=== PATIENT | female | born 1955 | race Caucasian/White ===

== ENCOUNTER → 2019-01-25 14:35 | Outpatient (CLI) | payer BC, MEDICARE, SELFPAY ==
--- NOTE | 2019-01-25 14:42 | BI_ITS ---
MAMMOGRAPHY - BILATERAL SCREENING REASON FOR EXAM: Female, 64 years old. Routine annual screening examination. PERTINENT HISTORY: Non-contributory. TECHNIQUE: Digital bilateral breast jagruti (3D mammographic acquisition) in the CC and MLO projections. 2-D mediolateral oblique (MLO) and craniocaudad (CC) views of both breasts were obtained. CAD: Full Field Digital Mammography with Computer Added Detection was performed. COMPARISON: Comparison is made with prior examination dated July 20, 2017 and July 10, 2016. FINDINGS: Breast Composition: There are scattered areas of fibroglandular density. There are no dominant masses or suspicious calcifications. No other significant abnormalities are identified. There has been no significant change since the prior study. BI/SCREENING MAMM (CAD), BILAT IMPRESSION: Stable bilateral screening mammogram. Yearly follow-up mammogram recommended. (A) ASSESSMENT CATEGORY: BIRADS Category 1: Negative. A letter regarding these results will be sent to the patient by the facility within 30 days. Approximately 10% of breast cancers are not detected by mammography. A normal mammogram should not delay biopsy of a clinically suspicious abnormality. [id number] Electronically Signed: Yousif Elena, at 15:42 EST , Service support ,
== END ==
PROVIDERS: Family Provider Family Medicine; PCP Family Medicine; Visit Provider Family Medicine
DX: Z12.31 Encounter for screening mammogram for malignant neoplasm of breast (principal)
CPT/HCPCS: 77063; 77067

== ENCOUNTER 2020-02-07 13:30 | Outpatient (RCR) | payer BC, MEDICARE, SELFPAY ==
--- NOTE | 2020-02-07 16:44 | HP.PTEVAL ---
Patient's Visit Information BETTY CARO is a 65 year old F referred to Physical Therapy by Joo Everett DPM with a diagnosis of CONTACTURE RIGHT ANKLE,DEFORMITY,CALCANEAL SPUR ,PAIN RIGHT ANKLE JOINT. Date of Evaluation: 02/07/20 Physical Therapist: Cecilio Banuelos, PT, Cert MDT, OCS - Visit Plan Frequency: 2x /Week Duration: 4 Weeks Plan: PT INTERVENTION FLEXABLITY G-S,ANKLE STRENGTHENING ,PROPRIOCEPTION - Subjective Subjective: This 65 y/o female presenst to physical therapy with right achilles tendon. 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 Patient seen sensor specialist recommendeed PT and night spint. Patient c/o tightness in right ankle impairs ADL'S and housework tasks. Denies parathesia/tingling. Patient symptoms affects QOL and function . Patient reports calf is atrophied .Patient sleeping okay at night. Patient goal decrease tightness and increases strength. SOCIAL: . VOCATION: retired - Pain Right Foot Pain Intensity (Out of 10): 7 Pain Intensity Range: 10 - Objective POSTURE: pes cavus. OBSERAVTION: atrophied G-S. NEURO: denies parathesia/tingling,reflexes intact. GAIT: ambulates on forefoot with decrease heelstike toe off. AROM: dorsiflexion -20 degrees fom 0,planterflexion 80 degrees,inversion 40 ,eversion 10 degrees. MMT: ankle dosiflexion 4/5,eversion/inversion 4/5,planterflexion 4-/5. PRORIOCEPTION: RLE poor > to LLE. FLEXABLITY: CALF MOD - Goals Goal 1:: Independant with HEP Goal Time Frame: 4-6 Weeks Goal 2:: Patient to improve dorsiflexion by 5 degrees or > to improve gait Goal Time Frame: 4-6 Weeks Goal 3:: Patient increase gait with improved heelstrike toe off during gait cycle . Goal Time Frame: 4-6 Weeks Goal 4:: Patient to increase strength of G-S to 4/5 to improve gait. Goal Time Frame: 4-6 Weeks Goal 5:: Patient to improve LFES score by 5-8 ponts or > to improve QOL. Goal Time Frame: 4-6 Weeks - Rehabilitation Potential Physical Therapy Diagnosis: Patient has severe restriction of ankle planterflexion contraction tightness with decrease affecting dorsiflexion ROM pain impairs gait and function thus benifit from skilled PT Rehabilitation Potential: Good - Anticipated Interventions Patient/Client Instruction: Educate patient on: Condition, Plan of Care For the Purpose of:: To decrease pain, To increase ROM, To improve muscle performance and motor function, To improve ability to perform ADL's, To increase tolerance to activity/condition/position, To improve ability of physical actions for home/community/work/leisure, To improve health of tissue, To decrease soft tissue restriction, To increase flexibility/ROM, To improve ability to perform tasks related to life management Therapeutic Exercise to Include: Strength training, Balance training, Flexibilty training, Passive ROM, Active ROM Comment: ANKLE For the Purpose of:: To decrease pain, To increase ROM, To improve muscle performance and motor function, To improve ability to perform ADL's, To increase tolerance to activity/condition/position, To improve ability of physical actions for home/community/work/leisure, To improve health of tissue, To decrease soft tissue restriction, To increase flexibility/ROM, To improve ability to perform tasks related to life management TENS: Yes IF ES: Yes Thermo therapy (hot pack): Yes For the Purpose of:: To decrease pain, To decrease swelling/inflammation, To improve health of tissue, To decrease soft tissue restriction Thank you for the opportunity to evaluate your patient. For Medicare and Medicare HMO plans, please review the plan of care and approve it. It will need to be FAXED BACK to us at [phone] for Medicare purposes. For Medicare only, by signing this I certify the plan of care. Please let me know if there are questions or concerns regarding this plan of care. Physician Signature: Date:
--- NOTE | 2020-02-26 13:49 | HP.PT.NRP ---
BETTY CARO was seen in my office for initial evaluation on 02/07/20. The following Plan of Care was established for this patient: Initial Frequency: 2x /Week Initial Duration: 4 Weeks Patient/Client Instruction: Educate patient on: Condition, Plan of Care For the Purpose of:: To decrease pain, To increase ROM, To improve muscle performance and motor function, To improve ability to perform ADL's, To increase tolerance to activity/condition/position, To improve ability of physical actions for home/community/work/leisure, To improve health of tissue, To decrease soft tissue restriction, To increase flexibility/ROM, To improve ability to perform tasks related to life management Therapeutic Exercise to Include: Strength training, Balance training, Flexibilty training, Passive ROM, Active ROM For the Purpose of:: To decrease pain, To increase ROM, To improve muscle performance and motor function, To improve ability to perform ADL's, To increase tolerance to activity/condition/position, To improve ability of physical actions for home/community/work/leisure, To improve health of tissue, To decrease soft tissue restriction, To increase flexibility/ROM, To improve ability to perform tasks related to life management TENS: Yes IF ES: Yes Thermo therapy (hot pack): Yes For the Purpose of:: To decrease pain, To decrease swelling/inflammation, To improve health of tissue, To decrease soft tissue restriction This patient was last seen in our office . Pertinent comments regarding their Physical therapy will appear below: Patient seen for Intila Evaluation then d.c to HEP. At this point I will be discontinuing this patient from physical therapy. I would be happy to see this patient again in the future if found appropriate by the physician. Thank you! Cecilio Banuelos, PT, Cert MDT, OCS
== END 2020-02-07 19:00 | disposition home or self-care (01) ==
LOC: PT 13:30
PROVIDERS: Referring Provider Podiatrist; Visit Provider Podiatrist
DX: M24.571 Contracture, right ankle (principal); M21.6X9 Other acquired deformities of unspecified foot; M25.571 Pain in right ankle and joints of right foot; G80.9 Cerebral palsy, unspecified; M67.01 Short Achilles tendon (acquired), right ankle; M76.61 Achilles tendinitis, right leg; M77.31 Calcaneal spur, right foot
CPT/HCPCS: 97110; 97162

== ENCOUNTER 2023-09-28 20:00 | Inpatient (IN) | payer MEDICARE, SELFPAY ==
[2023-09-28] VITALS (12 sets, daily range): BP systolic 143–178; BP diastolic 55–86; PULSE 63–79; RESP 14–22; TEMP 36.7–36.8; O2SAT 94–100; BMI 21.4; BMI 20.8
--- NOTE | 2023-09-28 20:12 | CT_ITS ---
INDICATION: Neuro deficit, acute, stroke suspected EXAMINATION: CT BRAIN - CT Head Stroke Protocol W/O Contrast Injection TECHNIQUE: Multiple axial images were obtained of the head without intravenous contrast. A radiation dose optimization technique was used for this scan. IV Contrast dosage and agent: None. Radiation Dose (provided by facility) CTDIvol (44.99 ) mGy, DLP ( 829.85) mGy-cm COMPARISON: MRI examination of brain dated the FINDINGS: HEMISPHERES: 1. The cerebral parenchyma, ventricular system and gyral pattern are unchanged. Persistent encephalomalacic changes involving the LEFT hemisphere, particularly involving the LEFT parietal and temporal lobes corresponding to an area of remote ischemia with negligible change. 2. Remaining hemispheric parenchyma has normal tello-white differentiation. Mild involutional changes are present. 3. Minimal chronic microvascular deep white matter changes.. 4. No intraparenchymal mass, hemorrhage, or acute territorial infarct. CEREBELLUM - BRAINSTEM: The cerebellum, brainstem, basilar and suprasellar cisterns have normal appearance. No Chiari malformation. PITUITARY: Infundibulum and pituitary have normal configuration. Midline structures appear normal. VESSELS: 1. Extensive calcific lesions throughout cavernous carotid vessels bilaterally. 2. No hyperdense vascular signs noted.. ORBITS AND PARANASAL SINUSES: 1. Normal appearance of the bony orbits. Normal appearance of the globes and retrobulbar soft tissues.. 2. Paranasal sinuses are clear. BONY ELEMENTS: Bony elements of the cranial vault, facial skeleton and skull base have normal appearance. SCALP AND SOFT TISSUES: Normal appearance of the soft tissues of the scalp and the visualized face OTHER: None CT/STROKE Brain/Head without Cont IMPRESSION: 1. Stable exam, extensive area of encephalomalacic area involving the LEFT hemisphere involving LEFT parietal and temporal lobes consistent with remote LEFT MCA infarct. 2. 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 3. No intracranial mass, hemorrhage or acute territorial infarct. 4. No radiographically significant sinus disease. N.B. : The above Results were Read Back by Jasper Ochoa MD to Uday Orosco DO, and understanding confirmed on 09/28/2023 20:30:45 (ET). Electronically Signed: Jasper Ochoa MD at 20:31 EST ,
--- NOTE | 2023-09-28 20:12 | CT_ITS ---
INDICATION: Neuro deficit, acute, stroke suspected EXAMINATION: CTA HEAD - CTA Head and Neck Stroke W/ Contrast (and W/O if performed) TECHNIQUE: [place] [facility] [place]/head CT angiogram protocol was performed following IV contrast. 3D reconstructions were reviewed. A radiation dose optimization technique was used for this scan. IV Contrast dosage and agent: 100 mL Isovue-370 Radiation Dose (provided by facility) CTDIvol (23.63 ) mGy, DLP ( 690.20) mGy-cm ADVANCED IMAGING: This study was analyzed with ARTIFICIAL INTELLIGENCE algorithms including DEEP MACHINE LEARNING to assist in the evaluation of ACUTE CEREBRAL INFARCTS and/or detection of LARGE VESSEL OCCLUSIONS. COMPARISON: : No relevant prior comparison study available FINDINGS: CTA [place] [facility] [place]: PETROUS AND CAVERNOUS CAROTID ARTERIES: Diffuse vascular calcification throughout the cavernous carotid vessels without stenosis occlusion or filling defects. SUPRACLINOID CAROTID ARTERIES: Diffuse vascular calcifications, no evidence of stenosis occlusion or filling defect. ANTERIOR CEREBRAL AND A- COMM: Normal appearance the proximal and distal segments of the anterior cerebral circulation bilaterally. MIDDLE CEREBRAL ARTERIES: Normal appearance the proximal and distal segments of the middle cerebral circulation bilaterally. Normal appearance of the M4 cortical distribution bilaterally. INTRACRANIAL VERTEBRAL ARTERIES AND BASILAR ARTERY: Small caliber LEFT vertebral artery, basilar artery has normal caliber to level of bifurcation. Moderate calcifications involving the V4 segment of the RIGHT vertebral artery. There is a normal appearing LEFT posterior communicating artery. RIGHT posterior communicating artery is not well visualized. POSTERIOR CEREBRAL ARTERIES: Normal appearance proximal distal segments of posterior cerebral circulation bilaterally. DURAL SINUSES: Normal, no filling defects noted CT HEAD: Diffuse extensive malacic changes in the LEFT parietal and temporal region. No areas of abnormal contrast enhancement. No areas of abnormal enhancement. CTA Neck: TECHNIQUE: CTA examination of the neck obtained with standard protocol including axial postcontrast imaging with additional planar and three-dimensional reconstructions. Aortic arch: [Normal appearance of the aortic arch and origin the great vessels.] Right carotid system: Moderate calcifications at the RIGHT carotid bulb with out hemodynamically significant stenosis however mild (less than 50%) narrowing is noted. Remaining RIGHT cervical ICA has normal appearance to level of the skull base. Left carotid system: Moderate calcification at the LEFT carotid bulb, mild (less than 50%) narrowing noted. No evidence of filling defects or high-grade stenosis. Vertebral arteries: Small caliber LEFT vertebral artery is noted, no evidence of stenosis or occlusion. Airway and soft tissues of the neck: There is normal appearance of the musculofascial planes of suprahyoid and infrahyoid neck. Normal appearance of the visualized airway. Normal appearance the visualized thyroid without masses or nodules noted. Cervical spine: Normal appearance of bony elements of the cervical spine. No focal stenosis or occlusion involving the cervical spinal canal. CT/STROKE CTA Head AND Neck W/Con IMPRESSION: 1. Diffuse vascular calcifications throughout the cavernous carotid and supra clinoid carotid vessels bilaterally without stenosis or occlusion. Moderate calcifications involving the V4 segment of the RIGHT vertebral artery. 2. No evidence focal stenosis occlusion filling defects or LVO involving the intracranial circulation. 3. Moderate calcifications involving the carotid bulbs bilaterally consistent with mild (less than 50%) narrowing. No hemodynamically significant stenosis in the cervical carotid or vertebral circulation bilaterally. Electronically Signed: Jasper Ochoa MD at 20:50 EST ,
--- NOTE | 2023-09-28 20:12 | EKG12_ITS ---
Test Reason : STROKE Blood Pressure : / mmHG Vent. Rate : 069 BPM Atrial Rate : 070 BPM P-R Int : 000 ms QRS Dur : 116 ms QT Int : 466 ms P-R-T Axes : 018 100 097 degrees QTc Int : 499 ms Ventricular-paced rhythm Biventricular pacemaker detected Abnormal ECG Confirmed by EDGARDO MORENO, CLIFF ([id number]), editorial clerk CRESCENCIO BERRY ([id number]) on 10/04/2023 8:34:40 AM Referred By: RAJ Confirmed By:SALEEM REYNOSO MD
--- NOTE | 2023-09-28 20:15 | RAD_ITS ---
INDICATION: Neuro deficit, acute, stroke suspected EXAMINATION/TECHNIQUE: X-RAY - XR Chest 1 View COMPARISON: 12/08/2014 FINDINGS: LIFE-SUPPORT AND LINES: 1. Transvenous pacer/AICD system has been placed in the interval projecting in normal position. 2. No pneumothorax. HEART AND VESSELS: The cardiac silhouette, pulmonary vasculature have normal appearance. No evidence of congestive failure. LUNGS AND PLEURAL SPACES: Lungs are clear. No focal infiltrate, consolidation or effusions. No evidence of pneumothorax. Minimal atelectasis versus chronic scarring in the RIGHT infrahilar region. MEDIASTINUM AND HILAR REGIONS: No masses adenopathy noted. No areas of calcification. Visualized upper airway is normal in position. BONY ELEMENTS: No acute bony changes noted. RAD/Chest 1 View IMPRESSION: 1. Interval placement of transvenous pacer/AICD system projecting in normal position. 2. No pneumothorax. 3. No evidence of acute cardiopulmonary process. 4. Chronic interstitial changes and pleural thickening in the RIGHT infrahilar region. No acute infiltrate. Electronically Signed: Jasper Ochoa MD at 21:05 EST ,
[2023-09-28 20:17] LABS: Absolute Lymphocyte Count 3.61 X10^3/uL (0.83-4.51); Basophil# 0.04 X10^3/uL; Basophil% 0.6 % (0-1); Eosinophil# 0.07 X10^3/uL; Hematocrit 39.6 % (37-47); Hemoglobin 12.5 g/dL (12.0-15.0); Lymphocyte # 3.61 X10^3/ul (0.83-4.51); Lymphocyte % 49.7 % (19-41); Mean Corp Hgb Conc 31.6 g/dL (32-36); Mean Corpuscular Hgb 30.2 pg (27.0-32.0); Mean Corpuscular Volume 95.7 fL (81-99); Mean Platelet Vol. 11.1 fl (6.2-12.0); Monocyte# 0.55 X10^3/uL; Monocyte% 7.6 % (0-10); NRBC Flagged by Analyzer 0 % (0-5); Neutrophil # 2.98 X10^3/uL (2.7-7.7); Neutrophil % 40.8 % (47-70); Platelet Count 157 K/mm3 (150-450); RBC Distribution Width CV 13.3 % (11.6-14.6); RBC Distribution Width SD 47.4 fl (35.1-43.9); Red Blood Count 4.14 M/mm3 (4.2-5.4); White Blood Count 7.3 K/mm3 (4.4-11.0)
[2023-09-28 20:26] LABS: Prothrombin Time (Protime)PT. 12.7 SECONDS (11.7-14.9)
[2023-09-28 20:27] LABS: Partial Thromboplast Time 24.8 Seconds (24.1-36.2)
[2023-09-28 20:39] LABS: Anion Gap 6 (5-15); BUN 27 mg/dL (7-18); BUN/Creat Ratio 24.5 RATIO (10-20); Calcium,Total 9.7 mg/dL (8.5-10.1); Chloride 106 mmol/L (98-107); EST Glomerular Filtration Rate 52 mL/min (>60); Est Glom Filt Rate - Afr Amer 63 mL/min (>60); Estimated Creatinine Clearance 46.28 ml/min; Glucose 159 mg/dL (74-106); Potassium 3.9 mmol/L (3.5-5.1); Sodium Level 140 mmol/L (136-145); Troponin-I HS 7 pg/mL (3.0-54.0)
[2023-09-28] MEDS: 0.9% Normal Saline (1000mL) 1,000 ML 999 ML IV (20:43)
--- NOTE | 2023-09-28 20:50 | ED.VIS.STROK ---
HPI History of Present Illness Chief Complaint: Neuro S/Sx Narrative Narrative: 68-year-old female presenting with strokelike symptoms with her . Onset was 4 PM. Patient's states she is just not acting right. She appears to be confused. She complains of dizziness and blurry vision. She cannot describe this. Patient's states that she is having fragmented sentences. She is not making sense. Initially he tried to get her to come to the emergency room but she was arguing with him. He finally put her in the car and brought her here. She was unable to walk on arrival and was wheelchair then. History of stroke a year ago with residual deficit of spastic right lower extremity. Patient is on Plavix. [facility] Medical History Cardiac resynchronization therapy defibrillator ([employer]-D) in place Diabetes mellitus Hyperlipidemia Hypertension Myocarditis PFO (patent foramen ovale) Home Medications amlodipine 5 mg-olmesartan 20 mg tablet (Joaquín) 0.5 udtab PO QODAY 11/18/14 [History Last Taken 05/16/16 22:00] citalopram 20 mg tablet 20 mg PO QHS 11/18/14 [History Last Taken 05/17/16 22:00] clonazepam 1 mg tablet 1 mg PO QHS anxiety 11/18/14 [History Last Taken 05/15/16 22:00] ergocalciferol (vitamin D2) 1,250 mcg (50,000 unit) capsule (Vitamin D2) 2,000 iu PO QHS 11/18/14 [History Last Taken 05/17/16 22:00] metformin 500 mg tablet 500 mg PO QHS 11/18/14 [History Last Taken 05/17/16 22:00] multivitamin with folic acid 400 mcg tablet (Thera) 1 tab PO QHS 11/18/14 [History Last Taken 05/17/16 22:00] rosuvastatin 5 mg tablet (Crestor) 5 mg PO QHS 11/18/14 [History Last Taken 05/17/16 22:00] trazodone 50 mg tablet 50 mg PO DAILY PRN Anxiety 11/18/14 [History Last Taken Unknown] pantoprazole 40 mg tablet,delayed release 40 mg PO BID ##120 12/12/14 [Rx Last Taken Unknown] clopidogrel 75 mg tablet 1 tab PO QHS 05/18/16 [History Last Taken 05/17/16 22:00] aspirin 81 mg tablet,delayed release 81 mg PO MOWEFR 09/28/23 [History Last Taken Unknown] baclofen 5 mg tablet 5 mg PO Q12H SPASTICITY IN RIGHT LEG 09/28/23 [History Last Taken Unknown] empagliflozin 10 mg tablet (Jardiance) 10 mg PO DAILY 09/28/23 [History Last Taken Unknown] metoprolol succinate 25 mg tablet,extended release 24 hr 12.5 mg PO DAILY 09/28/23 [History Last Taken Unknown] oxybutynin chloride 5 mg tablet,extended release 24 hr 5 mg PO DAILY 09/28/23 [History Last Taken Unknown] rosuvastatin 20 mg tablet 20 mg PO DAILY 09/28/23 [History Last Taken Unknown] sacubitril-valsartan 0.5 tab PO BID HTN 09/28/23 [History Last Taken Unknown] spironolactone 0.5 tab PO MOWEFR EDEMA 09/28/23 [History Last Taken Unknown] vitamin Z97-[id number] acid PO 09/28/23 [History Last Taken Unknown] Allergy/AdvReac Type Severity Reaction Status Date / Time No Known Allergies Allergy Verified 09/28/23 20:19 Social History Smoking Status: Former smoker ROS ROS ED Review of Systems ROS Unobtainable: due to mental condition and due to mental status EXAM Physical Exam Const Vital Signs: 09/28/23 20:00 09/28/23 20:04 09/28/23 20:00 Temperature 98.1 F Temperature Source Oral Pulse Rate 75 77 78 Respiratory Rate 16 16 21 H Blood Pressure 152/86 H 158/76 H 178/65 H Blood Pressure Mean 108 103 102 Pulse Ox 98 99 94 Oxygen Delivery Method Room Air Room Air Room Air 09/28/23 20:12 09/28/23 20:12 09/28/23 20:27 Temperature Temperature Source Pulse Rate 79 78 Respiratory Rate 14 20 H Blood Pressure 165/74 H 167/63 H Blood Pressure Mean 104 97 Pulse Ox 99 99 Oxygen Delivery Method Room Air Room Air Room Air 09/28/23 20:42 09/28/23 20:57 09/28/23 21:30 Temperature Temperature Source Pulse Rate 71 70 78 Respiratory Rate 22 H 19 H 18 Blood Pressure 143/74 H 170/55 H 144/77 H Blood Pressure Mean 97 93 99 Pulse Ox 99 99 100 Oxygen Delivery Method Room Air Room Air Room Air Positive well nourished Constitutional Narrative: Confused HEENT Reports moist mucous membranes Eyes General Eye ED: Negative for pale conjunctiva or scleral icterus Chest Wall inspection of chest normal Resp normal respiratory effort and clear to auscultation bilaterally Auscultation: Negative for rales, rhonchi or wheezes Cardio Rate: regular rate Rhythm: regular rhythm GI normal to inspection, nondistended, normoactive bowel sounds Extremity normal to inspection General Extremety ED: Negative for deformity or edema General Extremity: Negative for deformity or edema Neuro oriented x3 and CN's II-XII intact bilaterally Sensorium / Orientation: alert Motor Exam: strength 5/5 throughout Psych Psych Narrative: Confused Skin no wounds NIHSS NIHSS Initial: 1a Level of Consciousness: 0 1b LOC Questions (Score 2 if aphasic/stupor): 0 1c LOC Commands (Only score 1st attempt): 0 2 Best Gaze (If aphasic, use reflexive mvmts.): 0 3 Visual: 0 4 Facial Palsy: 0 5 Motor Arm Right (UN = amputation/fusion): 0 5 Motor Arm Left: 0 6 Motor Leg Right: 0 6 Motor Leg Left: 0 7 Limb ataxia (Only + if out of proportion): 0 8 Sensory (Aphasia/stupor=0 or 1, coma=2): 1 9 Best Language: 1 10 Dysarthria (mute, coma=2, intubated=UN): 0 11 Extinction and Inattention (only scored if +): 0 Total Score: 2 MDM MDM MDM Narrative Medical decision making narrative: Patient seen and evaluated on arrival. An extra scale score of 2. History of stroke. She is a little bit of expressive aphasia and some decrease sensation of the right leg otherwise her exam is normal. She does seem a bit confused and is a poor informant but she is alert and awake. She states that she has blurry vision but this is improved if she closes her left eye. She does not describe diplopia. When she closes her right eye her vision is just as bad as when she has both eyes open . she keeps stating she has monocular vision. Stroke team was called patient taken to CT and CT brain and CTA were obtained although she is outside the window for tPA is possibility of large vessel occlusion. CBC was obtained and shows normal white blood cell count, hemoglobin, platelets. PT/INR normal. High-sensitivity troponin is 7. Creatinine slightly elevated 1.10. Radiology called and told me that the CT brain was negative. Still waiting for the CTA. CTA returned negative. Review the medical record shows the patient has a PFO which makes her high risk for stroke although we do not see any evidence of 1. She will need to be admitted for MRI. This was the recommendation by the neurologist. Patient given aspirin in ED. Discussed with hospitalist for admission. Impression: 1. CVA Lab Data Attestation: I reviewed the patient's lab results. Labs: Laboratory Results - last 24 hr 09/28/23 09/28/23 20:10 21:00 WBC 7.3 RBC 4.14 L Hgb 12.5 Hct 39.6 MCV 95.7 MCH 30.2 MCHC 31.6 L RDW Std Deviation 47.4 H RDW Coeff of Edita 13.3 Plt Count 157 MPV 11.1 Immature Gran % (Auto) 0.300 Neut % (Auto) 40.8 L Lymph % (Auto) 49.7 H [place] % (Auto) 7.6 Eos % (Auto) 1.0 Baso % (Auto) 0.6 Absolute Neuts (auto) 3.0 Absolute Lymphs (auto) 3.61 Nucleated RBC % 0 PT 12.7 INR 1.0 APTT 24.8 Sodium 140 Potassium 3.9 Chloride 106 Carbon Dioxide 28.0 Anion Gap 6 BUN 27 H Creatinine 1.10 H Estim Creat Clear Calc 46.28 Est GFR (MDRD) Af Amer 63 Est GFR (MDRD) Non-Af 52 L BUN/Creatinine Ratio 24.5 H Glucose 159 H Calcium 9.7 Troponin I High Sens 7 Urine Color Yellow Urine Clarity Clear Urine pH 8.0 Ur Specific [place] 1.010 Urine Protein Negative Urine Glucose (UA) 1000 H Urine Ketones Negative Urine Occult Blood Negative Urine Nitrite Negative Urine Bilirubin Negative Urine Urobilinogen Normal Ur Leukocyte Esterase 25 H Urine RBC 0 SEEN Urine WBC 0 SEEN Ur Squamous Epith Cells 0 SEEN Urine Bacteria 0 SEEN Urine Mucus 0 SEEN Radiography Diagnostic Testing: Clinical Impression(s) from Imaging Studies Brain CT 09/28/23 20:12 IMPRESSION: 1. Stable exam, extensive area of encephalomalacic area involving the LEFT hemisphere involving LEFT parietal and temporal lobes consistent with remote LEFT MCA infarct. 2. 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 3. No intracranial mass, hemorrhage or acute territorial infarct. 4. No radiographically significant sinus disease. N.B. : The above Results were Read Back by Jasper Ochoa MD to Uday Orosco DO, and understanding confirmed on 09/28/2023 20:30:45 (ET). Electronically Signed: Jasper Ochoa MD at 20:31 EST , ADDENDUM: 09/28/232037 IMPRESSION: 1. Stable exam, extensive area of encephalomalacic area involving the LEFT hemisphere involving LEFT parietal and temporal lobes consistent with remote LEFT MCA infarct. 2. 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 3. No intracranial mass, hemorrhage or acute territorial infarct. 4. No radiographically significant sinus disease. N.B. : The above Results were Read Back by Jasper Ochoa MD to Uday Orosco DO, and understanding confirmed on 09/28/2023 20:30:45 (ET). Electronically Signed: Jasper Ochoa MD at 20:31 EST , Head/Neck CTA 09/28/23 20:12 IMPRESSION: 1. Diffuse vascular calcifications throughout the cavernous carotid and supra clinoid carotid vessels bilaterally without stenosis or occlusion. Moderate calcifications involving the V4 segment of the RIGHT vertebral artery. 2. No evidence focal stenosis occlusion filling defects or LVO involving the intracranial circulation. 3. Moderate calcifications involving the carotid bulbs bilaterally consistent with mild (less than 50%) narrowing. No hemodynamically significant stenosis in the cervical carotid or vertebral circulation bilaterally. Electronically Signed: Jasper Ochoa MD at 20:50 EST , Chest X-Ray 09/28/23 20:15 IMPRESSION: 1. Interval placement of transvenous pacer/AICD system projecting in normal position. 2. No pneumothorax. 3. No evidence of acute cardiopulmonary process. 4. Chronic interstitial changes and pleural thickening in the RIGHT infrahilar region. No acute infiltrate. Electronically Signed: Jasper Ochoa MD at 21:05 EST , Discharge Plan Triage Chief Complaint: Neuro S/Sx ED Provider: Uday Orosco Dx/Rx/DC Orders Primary Care Provider: Joo Campos
[2023-09-28 21:06] LABS: Bacteria 0 SEEN /hpf (None Seen); Mucous, Urine 0 SEEN /hpf (<or=2+); Red Blood Cells-Urine 0 SEEN /hpf (0-5); Squamous Epithelial Cells - UA 0 SEEN /hpf (5-10); White Blood Cells 0 SEEN /hpf (0-5)
[2023-09-28 21:07] LABS: Color, Urine Yellow (Yellow); Glucose, Dipstick 1000 mg/dl (Normal); Ketone-Dipstick Negative (Negative); Leukocyte Esterase-Dipstick 25 /ul (Negative); Nitrite-Dipstick Negative (Negative); Occult Blood-Urine Negative /ul (Negative); Protein-Dipstick Negative (Negative); Urine Bilirubin Dipstick Negative (Negative); Urine Clarity Clear (Clear); Urine Urobilinogen Normal (Normal)
[2023-09-28] MEDS: Aspirin 325 MG Tablet PO (21:34)
--- NOTE | 2023-09-28 22:10 | HP.PCM.HOS_ITS ---
HPI - General General Date of Admission: 09/28/23 Date of Service: 09/28/23 Chief Complaint: Fragmented sentences and confusion HPI Narrative BETTY CARO, is a 68 F with a past medical history of essential hypertension, hyperlipidemia, remote history of patent foramen ovale, history of CVA in 2008, recent history of a CVA 1 year ago with residual deficit causing spastic right lower extremity; on Plavix, history of coronary artery disease status post stent placement, diabetes mellitus type 2 of unknown control, history of myocarditis, history of cardiac resynchronization therapy defibrillator in place, depression and osteoarthritis who presents to [facility] ER complaining of strokelike symptoms with fragmented sentences and confusion. Mrs. Caro is accompanied to the ER by her beloved who is helped augment the history and he reports that she was fine all day after eating breakfast and they went out to vote and then at approximately 4 PM she abruptly became confused and was not acting right. She complained of not feeling right and immediately began to talk in fragmented sentences and was not making sense plus she resisted his initial suggestions to come to the ER but she finally relented and he brought her in via private vehicle. Upon arrival to the ER she was unable to walk and her speech was abnormal according to the ER records. She initially admitted to some numbness in her right lower extremity but now she is improving with a resolving mild residual expressive aphasia. Her reports she recently had a recent brain scan that was negative for Parkinson's disease at [place], where she normally receives her care. She denies fever, chills, nausea, vomiting, diarrhea or constipation. Stroke alert was called in the ER with patient outside the window for tPA and already improving clinically with suspicion for a possible CVA due to her PFO and she was then admitted to the PCU for ongoing care for a stay that is expected to be greater than 48 hours. [facility] Medical History Anxiety Cardiac resynchronization therapy defibrillator ([employer]D) in place Congestive heart failure (CHF) Coronary artery disease Diabetes mellitus Former smoker High cholesterol Hyperlipidemia Hypertension ICD (implantable cardioverter-defibrillator) in place Irregular heart beat Myocarditis PFO (patent foramen ovale) Restless legs Ulcer Home Medications citalopram 20 mg tablet 20 mg PO QHS depression 11/18/14 [History Last Taken 05/14] clonazepam 1 mg tablet 1 mg PO QHS anxiety 11/18/14 [History Last Taken 05/15/16 22:00] metformin 500 mg tablet 500 mg PO DAILY diabetes 11/18/14 [History Last Taken 05/17/16 22:00] multivitamin with folic acid 400 mcg tablet (Thera) 1 tab PO DAILY vitamin 11/18/14 [History Last Taken 05/17/16 22:00] trazodone 50 mg tablet 50 mg PO DAILY PRN Anxiety 11/18/14 [History Last Taken Unknown] clopidogrel 75 mg tablet 1 tab PO QHS 05/18/16 [History Last Taken 05/17/16 22:00] aspirin 81 mg tablet,delayed release 81 mg PO MOWEFR 09/28/23 [History Last Taken Unknown] baclofen 5 mg tablet 5 mg PO Q12H SPASTICITY IN RIGHT LEG 09/28/23 [History Last Taken Unknown] empagliflozin 10 mg tablet (Jardiance) 10 mg PO DAILY 09/28/23 [History Last Taken Unknown] metoprolol succinate 25 mg tablet,extended release 24 hr 12.5 mg PO DAILY 09/28/23 [History Last Taken Unknown] oxybutynin chloride 5 mg tablet,extended release 24 hr 5 mg PO DAILY PRN water retention 09/28/23 [History Last Taken Unknown] pantoprazole 40 mg tablet,delayed release 40 mg PO QHS stomach acid 09/28/23 [History Last Taken Unknown] rosuvastatin 20 mg tablet 20 mg PO QHS cholesterol 09/28/23 [History Last Taken Unknown] sacubitril-valsartan 0.5 tab PO BID HTN 09/28/23 [History Last Taken Unknown] spironolactone 0.5 tab PO MOWEFR EDEMA 09/28/23 [History Last Taken Unknown] vitamin E65-jyauw acid 1 tab PO DAILY vitamin 09/28/23 [History Last Taken Unknown] Allergy/AdvReac Type Severity Reaction Status Date / Time No Known Allergies Allergy Verified 09/28/23 20:19 Surgical History History of cholecystectomy History of coronary artery stent placement Social History Smoking Status: Former smoker ROS ROS Narrative Review of systems: Constitution: Patient denies fever chills but does admit to fatigue. Eyes: Patient denies acute visual changes but has chronic impaired vision. HEENT: Patient has extremely dry mucous membranes and frequent involuntary mouth movements Cardiovascular: Patient denies chest pain or palpitations Respiratory: Patient denies shortness of breath rales Gastrointestinal: Patient denies abdominal pain nausea vomiting diarrhea or constipation. Musculoskeletal: Patient denies lower extremity edema or deformity Neurology: Sensorium clearing patient alert and oriented with no acute focal neurologic deficits Psychiatry: Patient was confused on admission but is now returning to her baseline. Skin: Patient denies rash. 14 point review systems otherwise negative except for positives noted above in HPI. Vital Signs Vital Signs Vital Signs: 09/28/23 20:00 09/28/23 20:04 09/28/23 20:00 Temperature 98.1 F Temperature Source Oral Pulse Rate 75 77 78 Respiratory Rate 16 16 21 H Blood Pressure 152/86 H 158/76 H 178/65 H Blood Pressure Mean 108 103 102 Pulse Ox 98 99 94 Oxygen Delivery Method Room Air Room Air Room Air 09/28/23 20:12 09/28/23 20:12 09/28/23 20:27 Temperature Temperature Source Pulse Rate 79 78 Respiratory Rate 14 20 H Blood Pressure 165/74 H 167/63 H Blood Pressure Mean 104 97 Pulse Ox 99 99 Oxygen Delivery Method Room Air Room Air Room Air 09/28/23 20:42 09/28/23 20:57 09/28/23 22:00 Temperature Temperature Source Pulse Rate 71 70 63 Respiratory Rate 22 H 19 H 18 Blood Pressure 143/74 H 170/55 H 152/77 H Blood Pressure Mean 97 93 102 Pulse Ox 99 99 99 Oxygen Delivery Method Room Air Room Air 09/28/23 21:45 09/28/23 21:30 09/28/23 22:00 Temperature Temperature Source Pulse Rate 78 63 Respiratory Rate 16 18 18 Blood Pressure 144/77 H 152/77 H Blood Pressure Mean 99 102 Pulse Ox 100 99 Oxygen Delivery Method Room Air Room Air Weight Weight: 136 lb 7.458 oz Body Mass Index (BMI) 21.4 Physical Exam Const alert, oriented x3, no apparent distress and average body habitus General Appearance: cooperative HEENT normocephalic, head/scalp atraumatic and hearing grossly normal bilaterally HEENT Narrative: Mucous membranes dry. Eyes PERRL, EOMs intact bilaterally and conjunctivae normal Neck no lymphadenopathy, supple, no JVD and no carotid bruits Resp normal respiratory effort, no retractions, no use of accessory muscles and clear to auscultation bilaterally Cardio regular rate and regular rhythm GI normal to inspection, nondistended, normoactive bowel sounds, soft to palpation, non-tender and non-distended Extremity normal to inspection Neuro oriented x3, CN's II-XII intact bilaterally and moves all extremities Neuro Narrative: Patient has evidence of essential tremor and frequent lip-smacking. Sensorium / Orientation: awake, alert, oriented to person, oriented to place and oriented to time Coordination / Balance: [id number] test normal and [id number] test normal Speech: speech normal Motor Exam: strength 5/5 throughout Psych affect normal Results Medical Records Data Attestation: I reviewed the patient's medical records Lab / Micro Data Attestation: I reviewed the patient's lab results. 09/28/23 20:10 09/28/23 20:10 Labs: Laboratory Results - last 24 hr 09/28/23 20:10: WBC 7.3, RBC 4.14 L, Hgb 12.5, Hct 39.6, MCV 95.7, MCH 30.2, MCHC 31.6 L, RDW Std Deviation 47.4 H, RDW Coeff of Edita 13.3, Plt Count 157, MPV 11.1, Immature Gran % (Auto) 0.300, Neut % (Auto) 40.8 L, Lymph % (Auto) 49.7 H, [place] % (Auto) 7.6, Eos % (Auto) 1.0, Baso % (Auto) 0.6, Absolute Neuts (auto) 3.0, Absolute Lymphs (auto) 3.61, Nucleated RBC % 0, PT 12.7, INR 1.0, APTT 24.8, Sodium 140, Potassium 3.9, Chloride 106, Carbon Dioxide 28.0, Anion Gap 6, BUN 27 H, Creatinine 1.10 H, Estim Creat Clear Calc 46.28, Est GFR (MDRD) Af Amer 63, Est GFR (MDRD) Non-Af 52 L, BUN/Creatinine Ratio 24.5 H, Glucose 159 H, Calcium 9.7, Troponin I High Sens 7 09/28/23 21:00: Urine Color Yellow, Urine Clarity Clear, Urine pH 8.0, Ur Specific [place] 1.010, Urine Protein Negative, Urine Glucose (UA) 1000 H, Urine Ketones Negative, Urine Occult Blood Negative, Urine Nitrite Negative, Urine Bilirubin Negative, Urine Urobilinogen Normal, Ur Leukocyte Esterase 25 H, Urine RBC 0 SEEN, Urine WBC 0 SEEN, Ur Squamous Epith Cells 0 SEEN, Urine Bacteria 0 SEEN, Urine Mucus 0 SEEN Radiology Impression Brain CT 09/28/23 20:12 IMPRESSION: 1. Stable exam, extensive area of encephalomalacic area involving the LEFT hemisphere involving LEFT parietal and temporal lobes consistent with remote LEFT MCA infarct. 2. 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 3. No intracranial mass, hemorrhage or acute territorial infarct. 4. No radiographically significant sinus disease. N.B. : The above Results were Read Back by Jasper Ochoa MD to Uday Orosco DO, and understanding confirmed on 09/28/2023 20:30:45 (ET). Electronically Signed: Jasper Ochoa MD at 20:31 EST , ADDENDUM: 09/28/232037 IMPRESSION: 1. Stable exam, extensive area of encephalomalacic area involving the LEFT hemisphere involving LEFT parietal and temporal lobes consistent with remote LEFT MCA infarct. 2. 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 3. No intracranial mass, hemorrhage or acute territorial infarct. 4. No radiographically significant sinus disease. N.B. : The above Results were Read Back by Jasper Ochoa MD to Uday Orosco DO, and understanding confirmed on 09/28/2023 20:30:45 (ET). Electronically Signed: Jasper Ochoa MD at 20:31 EST , Head/Neck CTA 09/28/23 20:12 IMPRESSION: 1. Diffuse vascular calcifications throughout the cavernous carotid and supra clinoid carotid vessels bilaterally without stenosis or occlusion. Moderate calcifications involving the V4 segment of the RIGHT vertebral artery. 2. No evidence focal stenosis occlusion filling defects or LVO involving the intracranial circulation. 3. Moderate calcifications involving the carotid bulbs bilaterally consistent with mild (less than 50%) narrowing. No hemodynamically significant stenosis in the cervical carotid or vertebral circulation bilaterally. Electronically Signed: Jasper Ochoa MD at 20:50 EST , Chest X-Ray 09/28/23 20:15 IMPRESSION: 1. Interval placement of transvenous pacer/AICD system projecting in normal position. 2. No pneumothorax. 3. No evidence of acute cardiopulmonary process. 4. Chronic interstitial changes and pleural thickening in the RIGHT infrahilar region. No acute infiltrate. Electronically Signed: Jasper Ochoa MD at 21:05 EST , Assessment & Plan Assessment/Plan (1) CVA (cerebral vascular accident): PLAN: Plan 1. Suspected acute CVA with transient aphasia and altered mental status due to patent foramen ovale in the setting of a known previous CVA in 2008 and an additional CVA 1 year ago causing a persistent spastic right lower extremity - admit to medical floor. Recheck second CT of the head in the morning as MRI is contraindicated due to her history of cardiac resynchronization therapy with defibrillator in place. We will also check carotid ultrasound to evaluate for stenosis and echocardiogram to reevaluate her PFO. We will continue Plavix plus statin and add baby aspirin daily. She is already passed her bedside swallow evaluation and is rapidly improving. [facility] tel[facility]urology stroke consultation is greatly appreciated. 2. Essential hypertension - Allow for permissive hypertension until stroke is definitively ruled out. Give IV Vasotec as needed for systolic blood pressure greater than 210 mmHg. 3. Hyperlipidemia - Continue statin and check lipid profile this admission. 4. Depression - Continue home medications as previous. 5. History of myocarditis - Check echocardiogram this admission. Consider ca rdiology consult if cardiac anatomy and physiology is markedly abnormal compared to previous. 6. History of disease; status post stent placement - Stable continue antiplatelet therapy and statin as previous. 7. Osteoarthritis - Stable. 8. DVT prophylaxis -Lovenox 40 mg subcu daily. Total time: Approximately 55 minutes. Charges/Coding Visit Charges Inpatient E&M: 43416 Init Hosp L2
--- NOTE | 2023-09-28 22:33 | CDU_ITS ---
Reason For Study: CVA with PFO Rt. Velocities/BP Lt. Velocities/BP Prox CCA 83.4/11.6 cm/sec. Prox CCA 70.2/8.8 cm/sec. Mid CCA 53.2/9.7 cm/sec. Mid CCA 52.2/10.7 cm/sec. Dist CCA 52.2/10.7 cm/sec. Dist CCA 41.9/8.8 cm/sec. Prox ICA 36.2/7.8 cm/sec. Prox ICA 66.3/15.7 cm/sec. Mid ICA 74.9/17.3 cm/sec. Mid ICA 71.8/20.1 cm/sec. Dist ICA 72.1/18.2 cm/sec. Dist ICA 79.5/21.2 cm/sec. Rt. ICA/CCA = 1.41. Lt. ICA/CCA = 1.52. Prox ECA 107.2/9 cm/sec. Prox ECA 89.4/4.7 cm/sec. Rt. Vert. 45.6/10.7 cm/sec. Lt. Vert. 38.8/9.1 cm/sec. Right Extracranial There is heterogeneous, irregular atherosclerotic plaque noted in the right common carotid artery. There is heterogeneous, irregular atherosclerotic plaque noted in the right internal carotid artery. There is heterogeneous, irregular atherosclerotic plaque noted in the right external carotid artery. Antegrade flow is noted in the right vertebral artery. Left Extracranial There is homogeneous, smooth atherosclerotic plaque noted in the left common carotid artery. There is heterogeneous, irregular atherosclerotic plaque noted in the left internal carotid artery. There is heterogeneous, irregular atherosclerotic plaque noted in the left external carotid artery. Antegrade flow is noted in the left vertebral artery. Procedure Carotid Duplex [id number]. This is a Carotid Duplex examination using B-mode, color flow and specral Doppler. Exam performed portable in patient room. VL/Carotid Duplex Ultrasound Interpretation Summary Mild (<50%) stenosis right extracranial internal carotid. Mild (<50%) stenosis left extracranial internal carotid. Patent and antegrade vertebrals bilaterally. Ordering Physician: Tony Corona Referring Physician: Joo Campos Performed By: Estefany Ovalle RVT
--- NOTE | 2023-09-28 22:33 | ECHOD_ITS ---
Reason For Study: TIA/CVA Procedure This was a 2D Doppler, Color Flow transthoracic echocardiogram. Exam performed portable in patient room. Left Ventricle Normal LV size. The estimated ejection fraction is 55 %. No evidence for diastolic dysfunction. No regional wall motion abnormalities noted. Right Ventricle Normal RV size. ICD or pacer leads identified within the right ventricle. Normal systolic function. Atria Normal left atrium. Normal right atrium. ICD or pacer leads identified within the right atrium. No doppler evidence for ASD. Mitral Valve There is no mitral valve stenosis. No mitral valve insufficiency. Tricuspid Valve There is no tricuspid stenosis. No tricuspid valve insufficiency. Aortic Valve Trisinus/trileaflet aortic valve. There is no aortic stenosis. No aortic valve insufficiency. Pulmonic Valve There is no pulmonic valvular stenosis. No pulmonic valve insufficiency. Great Vessels Normal aortic root. Pericardium/Pleural No pericardial effusion. MMode/2D Measurements & Calculations LVIDd: 4.4 cm IVSd: 0.99 cm Ao root diam: 3.0 cm LVIDs: 3.0 cm LVPWd: 0.99 cm RVDd: 2.4 cm FS: 32.4 % LAV(MOD-bp): 47.2 ml EDV(MOD-sp4): 53.5 ml SV(MOD-sp4): 32.7 ml LAV(MOD-bp) Indexed: 27.9 ml/m2 ESV(MOD-sp4): 20.8 ml LAV(MOD-sp2): 46.8 ml EF(MOD-sp4): 61.1 % LAV(MOD-sp4): 42.9 ml LA dimension(2D): 3.2 cm TAPSE: 1.1 cm LA A4 area: 16.4 cm2 Doppler Measurements & Calculations Lat Peak E' Chente: 5.2 cm/sec Med Peak E' Chente: 5.0 cm/sec Ao V2 max: 90.4 cm/sec Ao max P.3 mmHg Ao V2 mean: 61.6 cm/sec Ao mean P.7 mmHg Ao V2 VTI: 17.8 cm AV (velocity ratio): 0.80 LV V1 max: 74.7 cm/sec PA V2 max: 75.7 cm/sec TR max chente: 201.6 cm/sec LV V1 max P.2 mmHg PA V2 mean: 45.9 cm/sec TR max P.3 mmHg LV V1 mean P.1 mmHg LV V1 mean: 49.7 cm/sec LV V1 VTI: 14.2 cm ECHO/Echo Complete Interpretation Summary No evidence for diastolic dysfunction. The estimated ejection fraction is 55 %. Ordering Physician: Tony Corona Referring Physician: Joo Hatfield Performed By: Florina Baig, PRESLEY, RVT
[2023-09-28 23:07] LABS: Thyroid Stim Hormone (TSH) 2.94 uIU/mL (0.358-3.74)
[2023-09-28] MEDS: 0.9% Normal Saline (1000mL) 1,000 ML 50 ML IV (23:54)
[2023-09-28] MEDS: Pantoprazole Sodium 40 MG Tablet PO (23:55)
[2023-09-28] MEDS: Baclofen 10 MG Tablet 5 MG PO (23:55)
[2023-09-29] VITALS (9 sets, daily range): BP systolic 105–143; BP diastolic 56–70; PULSE 60–76; RESP 14–18; TEMP 36.1–36.8; O2SAT 96–100; BMI 20.8
[2023-09-29] MEDS: 0.9% Saline Lock 10 ML Syringe IV (00:09)
[2023-09-29] MEDS: Clopidogrel Bisulfate 75 MG Tablet PO ×2 (00:26→21:35)
[2023-09-29] MEDS: clonazePAM 1 MG Tablet PO ×2 (00:26→21:40)
[2023-09-29] MEDS: Citalopram 20 MG Tablet PO ×2 (02:45→21:33)
[2023-09-29 07:03] LABS: Cholesterol 106 mg/dL (200); High Density Lipoprotein 41 mg/dL; Triglycerides 145 mg/dL; Very Low Density Lipoprotein 29 mg/dL (5-40)
[2023-09-29 07:22] LABS: Bedside Glucose 111 mg/dL (74-106)
[2023-09-29] MEDS: Empagliflozin 10 MG Tablet PO (08:56)
[2023-09-29] MEDS: Tolterodine Tartrate 2 MG CAP.SA PO (08:57)
[2023-09-29] MEDS: Glycerin/Hypromellose/PEG400 15 ml Bottle 2 DRP EACH EYE (08:57)
[2023-09-29] MEDS: Aspirin E.C. 81 MG Tablet PO (08:57)
[2023-09-29] MEDS: Enoxaparin 40 MG/0.4 ML Syringe SC (08:58)
[2023-09-29] MEDS: Baclofen 10 MG Tablet 5 MG PO ×2 (08:59→21:34)
[2023-09-29] MEDS: Glucerna Shake 120 ML LIQUID PO ×4 (10:45→21:44)
[2023-09-29] MEDS: Insulin Lispro 100 UNIT/ML INSULN.PEN SC ×2 (11:27→16:32)
[2023-09-29] MEDS: Pantoprazole Sodium 40 MG Tablet PO ×2 (11:27→21:36)
[2023-09-29 11:49] LABS: Bedside Glucose 170 mg/dL (74-106)
[2023-09-29] MEDS: traMADol 50 MG Tablet PO (12:16)
--- NOTE | 2023-09-29 14:14 | CASEMGMT ---
Discharge Planning A list of?acute rehab providers including quality and resource use data and consistent with the patient's preferred geographic region, medical needs, and insurance network was created in [facility].? This list was provided to the RN CM. Danielle Casey, Discharge Planning Asst.
--- NOTE | 2023-09-29 14:15 | CASEMGMT ---
TANIA ALLEN Face to Face with patient for initial transition planning/care coordination assessment. TANIA ALLEN introduced self and role at [facility]. Patient sitting in chair, alert and oriented, at bedside. Patient willing to participate in assessment and is able to answer all questions appropriately. Care providers, pharmacy, and demographics verified. Therapy recommending acute rehab at discharge. TANIA ALLEN discussed acute rehab at discharge and patient and agreeable. A list of Acute rehab units provided to patient and prefers [facility] Acute Rehab. Patient states she has no further needs or concerns at this time. TANIA ALLEN updated SW regarding requests for [facility] Acute Rehab. CM to follow for discharge planning needs that may arise. PCP: Beth Specialists: Almita willow analystmeg PHILLIPS Neurologist; [employer] Matron Preferred Pharmacy: [facility] Insurance: [employer] [facility] [employer] Prescription Benefit: yes Living Will/HPOA: yes, [facility] Pena LNOK: Living Arrangements: Patient lives with in a 2 story home. Patient was independent and able to ambulate stairs prior to current illness Transportation: DME/HHC: Pateint has shower chair, raised toilet, cane, grab bars, walker at home. Patient has had HHC in the past but could not recall agency. Disposition Plan: Acute rehab pending acceptance and precert. Estefany MARTINES, RN, CM
[2023-09-29 16:51] LABS: Bedside Glucose 151 mg/dL (74-106)
--- NOTE | 2023-09-29 17:17 | PN.HOSP_ITS ---
Reason for Visit Reason for Visit: Diagnoses Cerebral infarction, unspecified (09/28/23) Subjective Subjective Patient was seen and examined today, I had a long conversation with the patient and her who was in the room at the time of my examination. She came to the ER yesterday after being brought in by her , he stated that she a ppeared to be confused and she complained of dizziness and blurred vision. Today her states that she is back to her baseline, patient has a history of a stroke approximately a year ago with residual neurological deficits in the right lower extremity. Patient is currently on Plavix and aspirin as an outpatient. Patient underwent an echocardiogram today which showed a normal ejection frac tion and no evidence of a patent foramen ovale. At the time of this dictation, her MRI has not been performed, she does have a pacemaker which is MRI compatible according to her , MRI and will have to check to see if this is correct. Objective Data Objective Data Vital Signs: Vital Signs Temp Pulse Resp BP Pulse Ox O2 Del Method 97.6 F L 70 14 112/56 L 98 Room Air 09/29/23 11:25 09/29/23 11:25 09/29/23 11:25 09/29/23 11:25 09/29/23 11:25 09/29/23 11:25 Oxygen Delivery Method Room Air Weight: 60.3 kg Body Mass Index (BMI) 20.8 Intake & Output: Intake and Output for Last 24 Hours 09/27/23 09/28/23 09/29/23 23:59 23:59 23:59 Intake Total 1000 / 1150 870 / 870 Output Total 830 / 830 Balance 1000 / 920 40 / 40 Medical Nutrition Assessment Dietitian: Malnutrition Criteria Met Start: 09/29/23 14:29 Freq: Status: Active Protocol: Document 09/29/23 14:29 AG (Rec: 09/29/23 14:29 [id number]) Nutrition Malnutrition Evidence of Malnutrition Exists Yes Malnutrition (moderate): Acute Illness/Injury Evidenced By Suboptimal Energy Intake ( Moderate),Weight Loss (Severe) Clinical Problem Acute Disease or Injury Related Malnutrition Etiology moderate, acute malnutrition related to inadequate energy intake after oral surgery Signs/Symptoms as evidenced by estimated PO Intake meeting <75% of estimated energy needs > 1 month; unintentional 12.1#/8% wt loss x ~1 month Status Active Problem Recommendation Dietitian Recommendations/Changes will adjust diet to CHO controlled, cardiac and continue glucerna 120mL 4x/day w/ medpass given evidence of malnutrition Lab / Micro Data 09/28/23 20:10 09/28/23 20:10 Labs: Laboratory Results - last 24 hr 09/28/23 20:10: WBC 7.3, RBC 4.14 L, Hgb 12.5, Hct 39.6, MCV 95.7, MCH 30.2, MCHC 31.6 L, RDW Std Deviation 47.4 H, RDW Coeff of Edita 13.3, Plt Count 157, MPV 11.1, Immature Gran % (Auto) 0.300, Neut % (Auto) 40.8 L, Lymph % (Auto) 49.7 H, [place] % (Auto) 7.6, Eos % (Auto) 1.0, Baso % (Auto) 0.6, Absolute Neuts (auto) 3.0, Absolute Lymphs (auto) 3.61, Nucleated RBC % 0, PT 12.7, INR 1.0, APTT 24.8, Sodium 140, Potassium 3.9, Chloride 106, Carbon Dioxide 28.0, Anion Gap 6, BUN 27 H, Creatinine 1.10 H, Estim Creat Clear Calc 46.28, Est GFR (MDRD) Af Amer 63, Est GFR (MDRD) Non-Af 52 L, BUN/Creatinine Ratio 24.5 H, Glucose 159 H, Calcium 9.7, Troponin I High Sens 7, TSH 2.94 09/28/23 21:00: Urine Color Yellow, Urine Clarity Clear, Urine pH 8.0, Ur Specific [place] 1.010, Urine Protein Negative, Urine Glucose (UA) 1000 H, Urine Ketones Negative, Urine Occult Blood Negative, Urine Nitrite Negative, Urine Bilirubin Negative, Urine Urobilinogen Normal, Ur Leukocyte Esterase 25 H, Urine RBC 0 SEEN, Urine WBC 0 SEEN, Ur Squamous Epith Cells 0 SEEN, Urine Bacteria 0 SEEN, Urine Mucus 0 SEEN 09/29/23 05:55: Triglycerides 145, Cholesterol 106, LDL Cholesterol 36, VLDL Cho lesterol 29, HDL Cholesterol 41 09/29/23 06:27: POC Glucose 111 H 09/29/23 11:18: POC Glucose 170 H 09/29/23 16:31: POC Glucose 151 H Radiography Diagnostic Testing: Radiology Impression Brain CT 09/28/23 20:12 IMPRESSION: 1. Stable exam, extensive area of encephalomalacic area involving the LEFT hemisphere involving LEFT parietal and temporal lobes consistent with remote LEFT MCA infarct. 2. 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 3. No intracranial mass, hemorrhage or acute territorial infarct. 4. No radiographically significant sinus disease. N.B. : The above Results were Read Back by Jasper Ochoa MD to Uday Orosco DO, and understanding confirmed on 09/28/2023 20:30:45 (ET). Electronically Signed: Jasper Ochoa MD at 20:31 EST , ADDENDUM: 09/28/232037 IMPRESSION: 1. Stable exam, extensive area of encephalomalacic area involving the LEFT hemisphere involving LEFT parietal and temporal lobes consistent with remote LEFT MCA infarct. 2. 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 3. No intracranial mass, hemorrhage or acute territorial infarct. 4. No radiographically significant sinus disease. N.B. : The above Results were Read Back by Jasper Ochoa MD to Uday Orosco DO, and understanding confirmed on 09/28/2023 20:30:45 (ET). Electronically Signed: Jasper Ochoa MD at 20:31 EST , Head/Neck CTA 09/28/23 20:12 IMPRESSION: 1. Diffuse vascular calcifications throughout the cavernous carotid and supra clinoid carotid vessels bilaterally without stenosis or occlusion. Moderate calcifications involving the V4 segment of the RIGHT vertebral artery. 2. No evidence focal stenosis occlusion filling defects or LVO involving the intracranial circulation. 3. Moderate calcifications involving the carotid bulbs bilaterally consistent with mild (less than 50%) narrowing. No hemodynamically significant stenosis in the cervical carotid or vertebral circulation bilaterally. Electronically Signed: Jasper Ochoa MD at 20:50 EST , Chest X-Ray 09/28/23 20:15 IMPRESSION: 1. Interval placement of transvenous pacer/AICD system projecting in normal position. 2. No pneumothorax. 3. No evidence of acute cardiopulmonary process. 4. Chronic interstitial changes and pleural thickening in the RIGHT infrahilar region. No acute infiltrate. Electronically Signed: Jasper Ochoa MD at 21:05 EST , Echocardiogram 09/28/23 22:33 Interpretation Summary No evidence for diastolic dysfunction. The estimated ejection fraction is 55 %. Ordering Physician: Tony Corona Referring Physician: Joo Hatfield Performed By: Florina Baig, PRESLEY, RVT Physical Exam Const alert, oriented x3, no apparent distress and average body habitus Constitutional Narrative: Patient appears older than her stated age General Appearance: cooperative, well kempt and well developed Orientation / Consciousness: awake, oriented to person, oriented to place and oriented to time HEENT normocephalic, head/scalp atraumatic and moist oral mucous membranes Eyes PERRL, EOMs intact bilaterally and conjunctivae normal Neck supple, no JVD, thyroid normal and no carotid bruits General: trachea midline Resp normal respiratory effort, no retractions, no use of accessory muscles and clear to auscultation bilaterally Auscultation: Negative for rales, rhonchi or wheezes Cardio regular rate, regular rhythm, S1 normal heart sound, S2 normal heart sound, no murmurs, no rub and no gallops GI normal to inspection, nondistended, normoactive bowel sounds, soft to palpation, non-tender and non-distended Extremity no clubbing, cyanosis or edema Skin no rashes or lesions noted General Skin Exam: no breakdown Neuro oriented x3, CN's II-XII intact bilaterally, moves all extremities and no sensory deficits noted Sensorium / Orientation: awake and alert Speech: speech normal Psych affect normal Assessment & Plan Assessment/Plan (1) Cerebrovascular disease: PLAN: Plan 1. Cerebrovascular disease with episode of confusion and speech difficulty-nithin moncada will undergo an MRI today, she will be seen by PT and OT, she will remain on her present medications #2 essential hypertension-patient will remain on her metoprolol and Entresto #3 cardiomyopathy-patient is on Entresto #4 atherosclerotic heart disease-stable at this time, patient will remain on her present medications #5 chronic depression-patient will remain on Celexa Total clinical time spent by myself addressing patient's medical issues, reviewing all of her data, and collaborating with patient's care team: 35-minute Charges/Coding Visit Charges Inpatient E&M: 66105 Subs Hosp L2
--- NOTE | 2023-09-29 18:19 | CASEMGMT ---
Social Work - Advanced Directive Validation Patient's brought Living Will and POAHC into the hospital. Paper copies now on chart, identifying [facility] as [facility]. No alternates listed. -PRITI Ng
--- NOTE | 2023-09-29 18:22 | CASEMGMT ---
Social Work - PHQ9 & discharge planning updates PHQ9 completed due to presentation of stroke. Score of 12, which indicative of moderate depression. Patient reports to this web content writer to know has had a stroke and that has had a brain event. Patient immediately told this web content writer that was sad. Expressed discouragement in having another stroke, as thought would not have another one. Reports history of CVA in 2008 and subsequent TIAs. Much supportive listening, encouragement, and validation offered. When came to question number 9, about being better of , patent immediately stated would never do that as patient's mother by suicide (gunshot) when patient was 30 years old. Patient reports history of taking too many pills one time, around 2007 when kids were acting crazy but denies any thoughts, or episodes of impulsive or intentional acts of self harm since that time. States went to the hospital and went into counseling for a long time and found this to be helpful; not currently in counseling. Reports to take antidepressants as prescribed. Patient reports her grandson, puppy, and even her are reasons to live. Denies any safety concerns at home. Provided patient with counseling options, and encouraged to consider once through rehab. Provided Stroke support group information, and had patient added to support group mailing list with patient's consent. The patient's was present for part of conversation but did step out of room without issue when this web content writer completed PHQ9. Discharged planning discussed. Patient had been given list of Rehab units in patient's geographical region, associated with insurance network, generated from [facility]. First choice is [facility] and second is [place]. and patient both hopeful for [facility]. Let patient/ know that [facility] was full today, so cannot make any guarantees. Did also talk to the about the strok support group. Message left for [facility] in admissions on the RU. Plan: SW to follow. Likely RU, pending referral at [facility]. If denied then will make referral to [facility]. -VINCENT Ng
[2023-09-29] MEDS: 0.9% Normal Saline (1000mL) 1,000 ML 50 ML IV (19:49)
[2023-09-29] MEDS: Multivitamins,Therapeutic Tablet 1 TABLET PO (21:35)
[2023-09-29] MEDS: Atorvastatin Calcium 40 MG Tablet PO (21:35)
[2023-09-29] MEDS: Cholecalciferol (VIT D3) 25 MCG TABLET (1,000 UNITS) 50 MCG PO (21:36)
[2023-09-29 22:11] LABS: Bedside Glucose 112 mg/dL (74-106)
[2023-09-30] VITALS (12 sets, daily range): BP systolic 120–162; BP diastolic 58–73; PULSE 60–80; RESP 14–18; TEMP 36.3–36.9; O2SAT 97–100; BMI 20.8
[2023-09-30 07:03] LABS: Bedside Glucose 108 mg/dL (74-106)
--- NOTE | 2023-09-30 09:00 | MRI_ITS ---
HISTORY: possible stroke. TECHNIQUE: Multiplanar and multisequence MR images of the brain were obtained without contrast. 297 images. COMPARISON: CT 09/28/2023. MR 05/11/2016. FINDINGS: BRAIN PARENCHYMA: Chronic large left middle cerebral artery territory infarct. Mild chronic right occipital infarct. Chronic white matter changes. No abnormal focus of restricted diffusion. No acute intracranial hemorrhage identified. CSF SPACES: Chronic volume loss and expected dilatation of the left lateral ventricle. No significant midline shift or other mass effect.No extra-axial fluid collection. VASCULAR SYSTEM: Major intracranial flow voids are maintained. PARANASAL SINUSES AND MASTOID AIR CELLS: No significant air fluid levels. ORBITS: Symmetric contents. MRI/Brain without Contrast IMPRESSION: No evidence for acute infarct. Chronic cerebral infarcts. Chronic involutional and white matter changes. Electronically Signed: Vida Nails MD at 10:41 EST ,
[2023-09-30] MEDS: Enoxaparin 40 MG/0.4 ML Syringe SC (09:13)
[2023-09-30] MEDS: Pantoprazole Sodium 40 MG Tablet PO ×2 (09:13→21:43)
[2023-09-30] MEDS: Tolterodine Tartrate 2 MG CAP.SA PO (09:13)
[2023-09-30] MEDS: Baclofen 10 MG Tablet 5 MG PO ×2 (09:13→21:43)
[2023-09-30] MEDS: Empagliflozin 10 MG Tablet PO (09:13)
[2023-09-30] MEDS: Metoprolol(XL)Succ 25 MG Tablet 12.5 MG PO (09:14)
--- NOTE | 2023-09-30 11:51 | DCINST_ITS ---
Discharge Instructions Diet Discharge Diet: 1800 Calorie Control Diet Activity Discharge Activity: Return to Normal Activity Weight Bearing Status: Full weight bearing Follow Up Care Test Results: Test results from this visit will be discussed in further detail at your follow- up appointment, if applicable. Discharge Plan Admission Admit Date/Time: 09/28/23 22:22 Primary Reason for Your Visit: TIA Attending Provider: Ben Johnson Primary Care Provider: Joo Campos Consulting Providers: Tony Corona Instructions Additional Instructions / Restrictions: Follow-up with your family practitioner in 2 to 3 weeks Discharge Orders/Prescriptions Prescriptions: New pantoprazole 40 mg Tablet,Delayed Release (Dr/Ec) 40 mg PO BID Qty: 0 0RF cholecalciferol (vitamin D3) 25 mcg (1,000 unit) Tablet 50 mcg PO QHS Qty: 0 0RF Continued metformin 500 MG tablet 500 mg PO DAILY trazodone 50 MG tablet 50 mg PO DAILY PRN (Reason: Anxiety) Patient Comments: mood/depression clonazepam 1 MG tablet 1 mg PO QHS Patient Comments: anxiety citalopram 20 MG tablet 20 mg PO QHS Patient Comments: depression multivitamin with folic acid [Thera] 1 TABLET tablet 1 tab PO DAILY Patient Comments: vitamin clopidogrel 75 MG tablet 1 tab PO QHS Patient Comments: ANTIPLATLET baclofen 5 mg tablet 5 mg PO Q12H sacubitril-valsartan [Entresto] 0.5 tab PO BID Jardiance 10 mg tablet 10 mg PO DAILY Patient Comments: TAKE 1 TABLET BY MOUTH EVERY DAY IN THE MORNING metoprolol succinate 25 mg tablet extended release 24 hr 12.5 mg PO DAILY Patient Comments: TAKE 0.5 TABLETS EVERY DAY-DO NOT CRUSH OR CHEW rosuvastatin 20 mg tablet 20 mg PO QHS spironolactone [Aldactone] 0.5 tab PO MOWEFR oxybutynin chloride 5 mg tablet extended release 24hr 5 mg PO DAILY PRN (Reason: water retention) Patient Comments: TAKING NEEDED vitamin M70-ufgyr acid 1 tab PO DAILY pantoprazole 40 MG tablet 40 mg PO QHS Patient Comments: decrease stomach acid- pt states she takes prn Changed aspirin 81 mg tablet,delayed release (DR/EC) 81 mg PO 1XD Qty: 1 0RF Patient Comments: TAKE 1 TABLET BY MOUTH EVERY OTHER DAY Referrals / Follow Up: Lary Bhandari, [Non-Staff] - Joo Campos DO [Primary Care Provider] - Disposition Disposition (needs filled in before D/C Order can be placed): Home, Self Care
--- NOTE | 2023-09-30 12:05 | CASEMGMT ---
Social Work Physician discharged pt. SW spoke w/pt and in room, they still want to explore rehab. However, MRI did not show a stroke. They would still like to explore rehab. If rehab cannot take pt, they will want SNF level of care. SW gave pt and list of long term facilities via [facility] in network w/pt's insurance, in pt's preferred geographic area, and complete w/quality and resource use data. SW did explain insurance may not approve rehab, asked them to review list and make SNF choices. Both state understanding. [facility] in rehab reviewing referral, will follow up w/SW. MITCHEL Rowley
[2023-09-30 12:54] LABS: Bedside Glucose 114 mg/dL (74-106)
--- NOTE | 2023-09-30 15:27 | CASEMGMT ---
Social Work Spoke with Celi at [facility]/TCU admissions. Patient could be accepted at either facility, pending precert. Due to lack of CVA diagnosis, it may be more difficult to get Inpatient RU LOC approved, though [facility] is willing to try if this is the wish of the patient. Met with patient and in room. Discussed RU versus SNF level of care. also brought up outpatient PT at [facility]. Patient reports to be feeling better than yesterday, but still feels need to work on use of one of her legs and a foot. Patient reports to feel daily therapy would be more helpful than intermittent that outpatient would provide. Patient reports to go with SNF LOC. Reviewed SNF list provided earlier today. First choice of SNF is [facility] and second is [facility]. Discharge marketing planning manager Danielle called [facility], with this headline writer present for phone call, and no beds are open at facility. Referral to Celi at [facility] TCU. Plan: [facility] pending insurance authorization. -PRITI Ng
[2023-09-30] MEDS: 0.9% Normal Saline (1000mL) 1,000 ML 50 ML IV (16:34)
--- NOTE | 2023-09-30 17:26 | PN.HOSP_ITS ---
Reason for Visit Reason for Visit: Diagnoses Cerebral infarction, unspecified (09/28/23) Cerebrovascular disease, unspecified (09/28/23) Subjective Subjective Patient was seen and examined today, patient's echocardiogram did not show PFO, her MRI did not show an acute stroke. I went over these findings with the patient and the patient's . Patient's wishes the patient to go to an extended care facility for inpatient rehab services, we are needing pre- CERT for this to happen. Objective Data Objective Data Vital Signs: Vital Signs Temp Pulse Resp BP Pulse Ox O2 Del Method 98.0 F 61 14 136/64 H 100 Room Air 09/30/23 16:12 09/30/23 16:12 09/30/23 16:12 09/30/23 16:12 09/30/23 16:12 09/30/23 16:12 Oxygen Delivery Method Room Air Weight: 60.3 kg Body Mass Index (BMI) 20.8 Intake & Output: Intake and Output for Last 24 Hours 09/28/23 09/29/23 09/30/23 23:59 23:59 23:59 Intake Total 1000 / 1150 2265.83 / 2415.83 1188.33 / 1188.33 Output Total 830 / 1230 450 / 450 Balance 1000 / 920 1435.83 / 1185.83 738.33 / 738.33 Medical Nutrition Assessment Dietitian: Malnutrition Criteria Met Start: 09/29/23 14:29 Freq: Status: Active Protocol: Document 09/29/23 14:29 (Rec: 09/29/23 14:29 [id number]) Nutrition Malnutrition Evidence of Malnutrition Exists Yes Malnutrition (moderate): Acute Illness/Injury Evidenced By Suboptimal Energy Intake ( Moderate),Weight Loss (Severe) Clinical Problem Acute Disease or Injury Related Malnutrition Etiology moderate, acute malnutrition related to inadequate energy intake after oral surgery Signs/Symptoms as evidenced by estimated PO Intake meeting <75% of estimated energy needs > 1 month; unintentional 12.1#/8% wt loss x ~1 month Status Active Problem Recommendation Dietitian Recommendations/Changes will adjust diet to CHO controlled, cardiac and continue glucerna 120mL 4x/day w/ medpass given evidence of malnutrition Lab / Micro Data 09/28/23 20:10 09/28/23 20:10 Labs: Laboratory Results - last 24 hr 09/29/23 21:48: POC Glucose 112 H 09/30/23 06:45: POC Glucose 108 H 09/30/23 11:13: POC Glucose 114 H Radiography Diagnostic Testing: Radiology Impression Carotid Duplex 09/28/23 22:33 Interpretation Summary Mild (<50%) stenosis right extracranial internal carotid. Mild (<50%) stenosis left extracranial internal carotid. Patent and antegrade vertebrals bilaterally. Ordering Physician: Tony Corona Referring Physician: Joo Campos Performed By: Estefany Ovalle, RVT Brain MRI 09/30/23 09:00 IMPRESSION: No evidence for acute infarct. Chronic cerebral infarcts. Chronic involutional and white matter changes. Electronically Signed: Vida Nails MD at 10:41 EST Reading Location ID and State: [facility] / [place] Tel , Service support , Physical Exam Narrative alert, oriented x3, no apparent distress and average body habitus Constitutional Narrative: Patient appears older than her stated age General Appearance: cooperative, well kempt and well developed Orientation / Consciousness: awake, oriented to person, oriented to place and oriented to time HEENT normocephalic, head/scalp atraumatic and moist oral mucous membranes Eyes PERRL, EOMs intact bilaterally and conjunctivae normal Neck supple, no JVD, thyroid normal and no carotid bruits General: trachea midline Resp normal respiratory effort, no retractions, no use of accessory muscles and clear to auscultation bilaterally Auscultation: Negative for rales, rhonchi or wheezes Cardio regular rate, regular rhythm, S1 normal heart sound, S2 normal heart sound, no murmurs, no rub and no gallops GI normal to inspection, nondistended, normoactive bowel sounds, soft to palpation, non-tender and non-distended Extremity no clubbing, cyanosis or edema Skin no rashes or lesions noted General Skin Exam: no breakdown Neuro oriented x3, CN's II-XII intact bilaterally, moves all extremities and no sensory deficits noted Sensorium / Orientation: awake and alert Speech: speech normal Psych affect normal Assessment & Plan Assessment/Plan (1) Cerebrovascular disease: PLAN: Plan 1. Cerebrovascular disease with episode of confusion and speech difficulty-this appears to be most likely from a TIA since there are no visible abnormalities which appear acute on the MRI. Patient will need to take aspirin and Plavix #2 essential hypertension-patient will remain on her metoprolol and Entresto #3 cardiomyopathy-patient is on Entresto #4 atherosclerotic heart disease-stable at this time, patient will remain on her present medications #5 chronic depression-patient will remain on Celexa #6 acute moderate protein and caloric malnutrition related to inadequate energy intake after oral surgery as evidenced by estimated p.o. intake meeting less than 75% of estimated energy needs more than 1 month and unintentional 12.1 pound weight loss x1 month-diet was adjusted to carbohydrate controlled cardiac, Glucerna 120 cc 4 times a day will be given with [employer] Total clinical time spent by myself addressing patient's medical issues, reviewing all of her data, and collaborating with patient's care team: 35- minutes Charges/Coding Visit Charges Inpatient E&M: 14018 Subs Hosp L2
[2023-09-30 18:38] LABS: Bedside Glucose 120 mg/dL (74-106)
[2023-09-30] MEDS: Citalopram 20 MG Tablet PO (21:43)
[2023-09-30] MEDS: Multivitamins,Therapeutic Tablet 1 TABLET PO (21:43)
[2023-09-30] MEDS: Cholecalciferol (VIT D3) 25 MCG TABLET (1,000 UNITS) 50 MCG PO (21:43)
[2023-09-30] MEDS: Atorvastatin Calcium 40 MG Tablet PO (21:44)
[2023-09-30] MEDS: Clopidogrel Bisulfate 75 MG Tablet PO (21:44)
[2023-09-30] MEDS: clonazePAM 1 MG Tablet PO (21:44)
[2023-09-30 22:43] LABS: Bedside Glucose 105 mg/dL (74-106)
[2023-10-01 01:34] VITALS: BMI 20.8
[2023-10-01 03:07] VITALS: BP 120/64; PULSE 60; RESP 18; TEMP 36.4; O2SAT 97
[2023-10-01 06:46] LABS: Bedside Glucose 111 mg/dL (74-106)
[2023-10-01 08:15] VITALS: O2SAT 95
[2023-10-01 09:00] VITALS: BP 129/67; PULSE 62; RESP 18; TEMP 36.6; O2SAT 98
[2023-10-01] MEDS: Baclofen 10 MG Tablet 5 MG PO (09:02)
[2023-10-01] MEDS: Glucerna Shake 120 ML LIQUID PO (09:02)
[2023-10-01] MEDS: Tolterodine Tartrate 2 MG CAP.SA PO (09:02)
[2023-10-01 09:03] VITALS: PULSE 62
[2023-10-01] MEDS: Empagliflozin 10 MG Tablet PO (09:03)
[2023-10-01] MEDS: Aspirin E.C. 81 MG Tablet PO (09:03)
[2023-10-01] MEDS: Metoprolol(XL)Succ 25 MG Tablet 12.5 MG PO (09:03)
[2023-10-01] MEDS: Pantoprazole Sodium 40 MG Tablet PO (09:04)
[2023-10-01] MEDS: Insulin Lispro 100 UNIT/ML INSULN.PEN SC (11:19)
[2023-10-01 11:39] LABS: Bedside Glucose 182 mg/dL (74-106)
--- NOTE | 2023-10-01 11:55 | PCM.TXEXTCAR ---
Diet Diet Order/Speech Therapy: 09/29/23 00:43 Diet: Consistent Carb - Calorie Controlled Dietary Modifications:: Cardiac / Heart Healthy Is pt able to select menu?: Yes How many daily calories?: 1999 calorie Therapies Weight Bearing: Full weight bearing Physical Therapy: Eval and Treat Occupational Therapy: Eval and Treat Speech Therapy: Eval and Treat Problem/Diagnosis (1) Cerebrovascular disease: Status: Acute Code(s): I67.9 - Cerebrovascular disease, unspecified Plan 1. Cerebrovascular disease with episode of confusion and speech difficulty-this appears to be most likely from a TIA since there are no visible abnormalities which appear acute on the MRI. Patient will need to take aspirin and Plavix #2 essential hypertension-patient will remain on her metoprolol and Entresto #3 cardiomyopathy-patient is on Entresto #4 atherosclerotic heart disease-stable at this time, patient will remain on her present medications #5 chronic depression-patient will remain on Celexa #6 acute moderate protein and caloric malnutrition related to inadequate energy intake after oral surgery as evidenced by estimated p.o. intake meeting less than 75% of estimated energy needs more than 1 month and unintentional 12.1 pound weight loss x1 month-diet was adjusted to carbohydrate controlled cardiac, Glucerna 120 cc 4 times a day will be given with med Pass Total clinical time spent by myself addressing patient's medical issues, reviewing all of her data, and collaborating with patient's care team: 35-minutes Allergies/Procedures Done in Hospital Allergies No Known Allergies Allergy (Verified 09/28/23 20:19) Procedures: 2-D Echocardiogram Type of Care/Length of Stay Estimated LOS: Convalescent Care Less Than 30 days Type of Care Needed: Acute Rehab Rehab Potential: Good Prognosis: Good Additional Orders/Day of Discharge H&P will serve as current which was dated: 09/28/23 Day of Discharge: 10/01/23 Dietary and Speech Recommendations Dietitian Recommendations/Changes: will adjust diet to CHO controlled, cardiac and continue glucerna 120mL 4x/day w/ medpass given evidence of malnutrition Speech Linguistic Eval Summary: 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 Hx of word finding difficulty after CVA in 2008 - this CVA forced the patient to retire per patient report. Patient's present, he manages all finances and medications. He reports the patient's language function appears to be close to her baseline, but she is requiring more repetition. He is concerned for difficulty hearing vs. difficulty understanding. Per , patient is farsighted in R eye and nearsighted in L eye. Orientation: Fully oriented to self, age, , address, place, and full date. Reoriented patient to time as she read analog clock wrong. Auditory Comprehension: Yes/no questions (basic) - 5/5 acc. Yes/no questions (moderate) - 5/5 acc. 2-step directions - 4/5 acc. Multistep directions (3-5 steps) - 1/3 acc. Verbal Expression: Repetition of words - 10/10 acc. Confrontation naming of objects - 10/10 acc. Divergent naming (concrete) - 13 items in 60 sec. Divergent naming (abstract) - 5 items in 60 sec. In 1-minute conversational sample, patient demonstrated mean length of 9.0 words per utterance. Pt's speech was 100% intelligible. Social Interaction: Good topic maintenance. Pt appropriately responded in all conversation exchanges. 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 Will plan for further assessment of comprehension, problem solving, and visual spatial skills. Will recommend speech therapy during acute stay 3-5X/week. Will recommend continued speech therapy at next level of care, which the patient reports may be inpatient rehab at [facility]. Discharge Plan Admission Admit Date/Time: 09/28/23 22:22 Primary Reason for Your Visit: TIA Attending Provider: Ben Johnson Primary Care Provider: Joo Campos Consulting Providers: Tony Corona Instructions Additional Instructions / Restrictions: Follow-up with your family practitioner in 2 to 3 weeks Discharge Orders/Prescriptions Prescriptions: New pantoprazole 40 mg Tablet,Delayed Release (Dr/Ec) 40 mg PO BID Qty: 0 0RF cholecalciferol (vitamin D3) 25 mcg (1,000 unit) Tablet 50 mcg PO QHS Qty: 0 0RF Continued metformin 500 MG tablet 500 mg PO DAILY trazodone 50 MG tablet 50 mg PO DAILY PRN (Reason: Anxiety) Patient Comments: mood/depression clonazepam 1 MG tablet 1 mg PO QHS Patient Comments: anxiety citalopram 20 MG tablet 20 mg PO QHS Patient Comments: depression multivitamin with folic acid [Thera] 1 TABLET tablet 1 tab PO DAILY Patient Comments: vitamin clopidogrel 75 MG tablet 1 tab PO QHS Patient Comments: ANTIPLATLET baclofen 5 mg tablet 5 mg PO Q12H sacubitril-valsartan [Entresto] 0.5 tab PO BID Jardiance 10 mg tablet 10 mg PO DAILY Patient Comments: TAKE 1 TABLET BY MOUTH EVERY DAY IN THE MORNING metoprolol succinate 25 mg tablet extended release 24 hr 12.5 mg PO DAILY Patient Comments: TAKE 0.5 TABLETS EVERY DAY-DO NOT CRUSH OR CHEW rosuvastatin 20 mg tablet 20 mg PO QHS spironolactone [Aldactone] 0.5 tab PO MOWEFR oxybutynin chloride 5 mg tablet extended release 24hr 5 mg PO DAILY PRN (Reason: water retention) Patient Comments: TAKING NEEDED vitamin A09-wruxt acid 1 tab PO DAILY pantoprazole 40 MG tablet 40 mg PO QHS Patient Comments: decrease stomach acid- pt states she takes prn Changed aspirin 81 mg tablet,delayed release (DR/EC) 81 mg PO 1XD Qty: 1 0RF Patient Comments: TAKE 1 TABLET BY MOUTH EVERY OTHER DAY Referrals / Follow Up: Lary Bhandari DO [Non-Staff] - Joo Campos DO [Primary Care Provider] - Disposition Disposition (needs filled in before D/C Order can be placed): Home, Self Care
--- NOTE | 2023-10-01 11:57 | PCM.DC.SUM ---
Providers Date of Admission: 09/28/23 Date of Discharge: 10/01/23 Primary Care Physician: Dr. Joo Campos DO Reason For Visit: SUSPECTED CVA WITH KNOWN PFO Diagnosis Discharge Diagnosis (1) Cerebrovascular disease: Status: Acute Code(s): I67.9 - Cerebrovascular disease, unspecified Plan 1. Cerebrovascular disease with episode of confusion and speech difficulty-this appears to be most likely from a TIA since there are no visible abnormalities which appear acute on the MRI. Patient will need to take aspirin and Plavix #2 essential hypertension-patient will remain on her metoprolol and Entresto #3 cardiomyopathy-patient is on Entresto #4 atherosclerotic heart disease-stable at this time, patient will remain on her present medications #5 chronic depression-patient will remain on Celexa #6 acute moderate protein and caloric malnutrition related to inadequate energy intake after oral surgery as evidenced by estimated p.o. intake meeting less than 75% of estimated energy needs more than 1 month and unintentional 12.1 pound weight loss x1 month-diet was adjusted to carbohydrate controlled cardiac, Glucerna 120 cc 4 times a day will be given with appweevr Total clinical time spent by myself addressing patient's medical issues, reviewing all of her data, and collaborating with patient's care team: 35-minutes Medications at Discharge Home Medications citalopram 20 mg tablet 20 mg PO QHS depression 11/18/14 clonazepam 1 mg tablet 1 mg PO QHS anxiety 11/18/14 metformin 500 mg tablet 500 mg PO DAILY diabetes 11/18/14 multivitamin with folic acid 400 mcg tablet (Thera) 1 tab PO DAILY vitamin 11/18/14 trazodone 50 mg tablet 50 mg PO DAILY PRN Anxiety 11/18/14 clopidogrel 75 mg tablet 1 tab PO QHS anti platelet 05/18/16 baclofen 5 mg tablet 5 mg PO Q12H SPASTICITY IN RIGHT LEG 09/28/23 empagliflozin 10 mg tablet (Jardiance) 10 mg PO DAILY diabetes 09/28/23 metoprolol succinate 25 mg tablet,extended release 24 hr 12.5 mg PO DAILY blood pressure 09/28/23 oxybutynin chloride 5 mg tablet,extended release 24 hr 5 mg PO DAILY PRN water retention 09/28/23 pantoprazole 40 mg tablet,delayed release 40 mg PO QHS stomach acid 09/28/23 rosuvastatin 20 mg tablet 20 mg PO QHS cholesterol 09/28/23 sacubitril-valsartan 0.5 tab PO BID HTN 09/28/23 spironolactone 0.5 tab PO MOWEFR EDEMA 09/28/23 vitamin K52-lonzd acid 1 tab PO DAILY vitamin 09/28/23 cholecalciferol (vitamin D3) 25 mcg (1,000 unit) tablet 50 mcg (2 x 25 mcg (1,000 unit)) PO QHS supplement #0 tabs 09/30/23 pantoprazole 40 mg tablet,delayed release 40 mg PO BID GERD #0 tabs 09/30/23 aspirin 81 mg tablet,delayed release 81 mg PO DAILY heart 10/01/23 Hospital Course Operations None Procedures 2-D Echocardiogram Summary of Care Provided Minutes Spent on Discharge: 32 Hospital Course: 68-year-old white female was seen in the emergency room at [facility] with complaints of generalized weakness and unsteady gait. Onset of symptoms was 4 PM that day, stated that she had dizziness, blurry vision, and she appeared to be confused. Patient had a remote stroke in 2008, other medical problems include cardiomyopathy, diabetes, and depression. Patient's NIH score was 2. Stroke team was called, the patient underwent a CT of the brain and a CT of the head and neck, patient was outside the window for tPA for an ischemic stroke. CT of the brain was negative, CTA of the head and neck showed no large vessel occlusion, neurologist recommended patient be admitted for an MRI, patient was admitted to PCU, seen by PT and OT and underwent an MRI of the brain which showed no evidence of acute stroke. Patient's pacemaker was MRI compatible. Physical therapy recommended further physical therapy and the patient's and the patient desired her to go to an extended care facility for inpatient rehab services. Echocardiogram was performed, and showed no evidence of PFO or reduced ejection fraction. On 10/01/2023, patient was seen and examined: On examination she appeared in good health and spirits, she does not appear to be in any distress. Vital signs as documented. Skin warm and dry and without overt rashes. Neck without JVD, thyroid appears normal, trachea is midline, neck is supple. Lungs clear, normal air movement was noted. Heart exam notable for regular rhythm, normal sounds and absence of murmurs, rubs or gallops. Abdomen unremarkable and without evidence of organomegaly, masses, or abdominal aortic enlargement, bowel sounds are present in all 4 quadrants, no abdominal tenderness was noted. Extremities nonedematous, no cyanosis was noted, no clubbing was noted. Neuro: Cranial nerves II through XII are grossly intact, no focal motor deficits were noted, sensation to light touch and pinprick is intact, motor exam 5/5 throughout. Psych: Patient is alert and oriented x3, she does not appear anxious or depressed, she does not appear agitated. Patient was discharged to TCU for inpatient rehab services on 10/01/2023 in stable condition. Medical Records Data Medical Nutrition Assessment Dietitian: Malnutrition Criteria Met Start: 09/29/23 14:29 Freq: Status: Active Protocol: Document 09/29/23 14:29 AG (Rec: 09/29/23 14:29 AG [id number]) Nutrition Malnutrition Evidence of Malnutrition Exists Yes Malnutrition (moderate): Acute Illness/Injury Evidenced By Suboptimal Energy Intake ( Moderate),Weight Loss (Severe) Clinical Problem Acute Disease or Injury Related Malnutrition Etiology moderate, acute malnutrition related to inadequate energy intake after oral surgery Signs/Symptoms as evidenced by estimated PO Intake meeting <75% of estimated energy needs > 1 month; unintentional 12.1#/8% wt loss x ~1 month Status Active Problem Recommendation Dietitian Recommendations/Changes will adjust diet to CHO controlled, cardiac and continue glucerna 120mL 4x/day w/ medpass given evidence of malnutrition Weight / BMI Weight Weight: 60.3 kg Body Mass Index (BMI) 20.8 ABG / Lab / Microbiology Data 09/28/23 20:10 09/28/23 20:10 Laboratory: Laboratory Results - last 24 hr 09/30/23 11:13: POC Glucose 114 H 09/30/23 16:15: POC Glucose 120 H 09/30/23 21:39: POC Glucose 105 10/01/23 06:28: POC Glucose 111 H 10/01/23 11:18: POC Glucose 182 H D/C Instructions Discharge Diet: 1800 Calorie Control Diet Weight Bearing Status: Full weight bearing Meaningful Use Info Meaningful Use Diagnoses (Choose all that apply): None applicable Discharge Plan Admission Admit Date/Time: 09/28/23 22:22 Primary Reason for Your Visit: TIA Attending Provider: Ben Johnson Primary Care Provider: Joo Campos Consulting Providers: Tony Corona Instructions Additional Instructions / Restrictions: Follow-up with your family practitioner in 2 to 3 weeks Discharge Orders/Prescriptions Prescriptions: New pantoprazole 40 mg Tablet,Delayed Release (Dr/Ec) 40 mg PO BID Qty: 0 0RF cholecalciferol (vitamin D3) 25 mcg (1,000 unit) Tablet 50 mcg PO QHS Qty: 0 0RF Continued metformin 500 MG tablet 500 mg PO DAILY trazodone 50 MG tablet 50 mg PO DAILY PRN (Reason: Anxiety) Patient Comments: mood/depression clonazepam 1 MG tablet 1 mg PO QHS Patient Comments: anxiety citalopram 20 MG tablet 20 mg PO QHS Patient Comments: depression multivitamin with folic acid [Thera] 1 TABLET tablet 1 tab PO DAILY Patient Comments: vitamin clopidogrel 75 MG tablet 1 tab PO QHS Patient Comments: ANTIPLATLET baclofen 5 mg tablet 5 mg PO Q12H sacubitril-valsartan [Entresto] 0.5 tab PO BID Jardiance 10 mg tablet 10 mg PO DAILY Patient Comments: TAKE 1 TABLET BY MOUTH EVERY DAY IN THE MORNING metoprolol succinate 25 mg tablet extended release 24 hr 12.5 mg PO DAILY Patient Comments: TAKE 0.5 TABLETS EVERY DAY-DO NOT CRUSH OR CHEW rosuvastatin 20 mg tablet 20 mg PO QHS spironolactone [Aldactone] 0.5 tab PO MOWEFR oxybutynin chloride 5 mg tablet extended release 24hr 5 mg PO DAILY PRN (Reason: water retention) Patient Comments: TAKING NEEDED vitamin R74-vhqwd acid 1 tab PO DAILY pantoprazole 40 MG tablet 40 mg PO QHS Patient Comments: decrease stomach acid- pt states she takes prn Discontinued aspirin 81 mg tablet,delayed release (DR/EC) 81 mg PO MOWEFR Patient Comments: TAKE 1 TABLET BY MOUTH EVERY OTHER DAY No Action aspirin 81 mg tablet,delayed release (DR/EC) 81 mg PO DAILY Referrals / Follow Up: Lary Bhandari DO [Non-Staff] - Joo Campos DO [Primary Care Provider] - Disposition Disposition (needs filled in before D/C Order can be placed): Home, Self Care Charges/Coding Visit Charges Inpatient E&M: 43765 Disch Hosp >30min
[2023-10-01 13:40] VITALS: BP 138/68; PULSE 65; RESP 18; TEMP 36.7; O2SAT 97
--- NOTE | 2023-10-01 13:42 | CASEMGMT ---
Social Work Per Celi in TCU admissions, received insurance authorization for TCU. Physician updated and orders for discharge received. Faxed transfer summary and signed medication list to confirmed fax in TCU. Updated patient and to approval for TCU. Updated Liz MARIN of discharge and for report to TCU. No other services requested or indicated. PLAN: Skilled level of care to [facility] TCU.
--- NOTE | 2023-10-01 14:08 | PHA.DC.MR.R ---
Pharmacy [place] Med Reconciliation Pharmacy Service has performed discharge medication reconciliation for this patient. The patient's discharge medication list was reviewed for discrepancies and discrepancies were resolved.
--- NOTE | 2023-10-01 14:16 | NURSING ---
Called report to Karen in TCU
[2023-10-01 14:27] VITALS: BMI 20.8
[2023-10-17 16:50] LABS: Bedside Glucose 150 mg/dL (74-106)
== END 2023-10-01 14:41 | disposition skilled nursing facility (03) | DRG 69 ==
LOC: ED 21:32 → PCU 22:35
PROVIDERS: Admitting Provider Internal Medicine; Emergency Provider Student in an Organized Health Care Education/Training Program; PCP Student in an Organized Health Care Education/Training Program; Visit Provider Internal Medicine
DX: G45.9 Transient cerebral ischemic attack, unspecified (principal); E44.0 Moderate protein-calorie malnutrition; I42.9 Cardiomyopathy, unspecified; I69.351 Hemiplegia and hemiparesis following cerebral infarction affecting right dominant side; E11.9 Type 2 diabetes mellitus without complications; F32.A Depression, unspecified; I10 Essential (primary) hypertension; I69.320 Aphasia following cerebral infarction; I25.10 Atherosclerotic heart disease of native coronary artery without angina pectoris; M19.90 Unspecified osteoarthritis, unspecified site; E78.00 Pure hypercholesterolemia, unspecified; Z68.21 Body mass index [BMI] 21.0-21.9, adult; Z87.891 Personal history of nicotine dependence; Z79.84 Long term (current) use of oral 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 drugs; Z79.899 Other long term (current) drug therapy; Z79.02 Long term (current) use of antithrombotics/antiplatelets; Z95.5 Presence of coronary angioplasty implant and graft; Z95.810 Presence of automatic (implantable) cardiac defibrillator
CPT/HCPCS: 36415; 70450; 70496; 70498; 70551; 71045; 80048; 80061; 81001; 82962; 84443; 84484; 85025; 85610; 85730; 92523; 93005; 93306; 93880; 94762; 97162; 97166; 97530; 97535; 97802; 99285; J7030; Q9957; Q9967; A4216

== ENCOUNTER 2023-10-01 14:45 | Inpatient (IN) | payer MEDICARE, SELFPAY ==
[2023-10-01 15:19] VITALS: BMI 20.4
[2023-10-01 15:30] VITALS: BP 135/61; PULSE 60; RESP 18; TEMP 36.3; O2SAT 96; BMI 20.5
--- NOTE | 2023-10-01 15:58 | PCM.HP.STD ---
HPI - General General Date of Admission: 10/01/23 Date of Service: 10/01/23 Chief Complaint: Here for rehabilitation. HPI Narrative 09/28/2023 BETTY CARO, is a 68 Female who presents to [facility] Emergency Department with neurologic signs/symptoms. Presents with stroke like symptoms with , not acting right. Confused, dizziness, blurry vision, fragmented sentences, not making sense. Unable to walk, riding in wheelchair. NIHSS 2. CT brain negative, CTA head/neck negative, aspirin given. 09/28/2023 Admit to Hospital. Aspirin, Plavix, Statin, MRI brain for stroke. Vasotec IV as needed for elevated blood pressure, passed bedside swallow evaluation. 09/28/2023 Echo EF 55%. No diastolic dysfunction. No PFO. 09/29/2023 Carotid doppler ultrasound mild bilateral internal carotid artery stenosis. 09/30/2023 PT/OT. MRI negative for stroke. 10/01/2023 Admit to TCU with debility, here for rehabilitation, strengthening, prior to discharge home with . REPLACED BY [facility] Medical History (Updated 10/01/23 @ 16:[address] Alonso Marte MD) Anxiety AV node dysfunction Cardiac resynchronization therapy defibrillator (FACILITIES PLANNER-D) in place Congestive heart failure (CHF) Coronary artery disease Diabetes mellitus Former smoker High cholesterol Hyperlipidemia Hypertension ICD (implantable cardioverter-defibrillator) in place Irregular heart beat Ischemic cardiomyopathy Myocarditis PFO (patent foramen ovale) Presence of biventricular implantable cardioverter-defibrillator Restless legs Ulcer Home Medications citalopram 20 mg tablet 20 mg PO QHS depression 11/18/14 [History Last Taken 09/30/23] clonazepam 1 mg tablet 1 mg PO QHS anxiety 11/18/14 [History Last Taken 09/30/23] metformin 500 mg tablet 500 mg PO DAILY diabetes 11/18/14 [History Last Taken 05/17/16 22:00] multivitamin with folic acid 400 mcg tablet (Thera) 1 tab PO DAILY vitamin 11/18/14 [History Last Taken 09/30/23] trazodone 50 mg tablet 50 mg PO DAILY PRN Anxiety 11/18/14 [History Last Taken Unknown] clopidogrel 75 mg tablet 1 tab PO QHS anti platelet 05/18/16 [History Last Taken 09/30/23] baclofen 5 mg tablet 5 mg PO Q12H SPASTICITY IN RIGHT LEG 09/28/23 [History Last Taken 10/01/23] empagliflozin 10 mg tablet (Jardiance) 10 mg PO DAILY diabetes 09/28/23 [History Last Taken 10/01/23] metoprolol succinate 25 mg tablet,extended release 24 hr 12.5 mg PO DAILY blood pressure 09/28/23 [History Last Taken 10/01/23] oxybutynin chloride 5 mg tablet,extended release 24 hr 5 mg PO DAILY PRN water retention 09/28/23 [History Last Taken 10/01/23] pantoprazole 40 mg tablet,delayed release 40 mg PO QHS stomach acid 09/28/23 [History Last Taken Unknown] rosuvastatin 20 mg tablet 20 mg PO QHS cholesterol 09/28/23 [History Last Taken 09/30/23] sacubitril-valsartan 0.5 tab PO BID HTN 09/28/23 [History Last Taken Unknown] spironolactone 0.5 tab PO MOWEFR EDEMA 09/28/23 [History Last Taken Unknown] vitamin [id number] acid 1 tab PO DAILY vitamin 09/28/23 [History Last Taken Unknown] cholecalciferol (vitamin D3) 25 mcg (1,000 unit) tablet 50 mcg (2 x 25 mcg (1,000 unit)) PO QHS supplement #0 tabs 09/30/23 [Rx Last Taken 09/30/23] pantoprazole 40 mg tablet,delayed release 40 mg PO BID GERD #0 tabs 09/30/23 [Rx Last Taken 10/01/23] aspirin 81 mg tablet,delayed release 81 mg PO DAILY heart 10/01/23 [History Last Taken Unknown] Allergy/AdvReac Type Severity Reaction Status Date / Time No Known Allergies Allergy Verified 09/28/23 20:19 Surgical History (Updated 10/01/23 @ 16:[address] Alonso Marte MD) History of cardiac defibrillator placement History of cholecystectomy History of coronary artery stent placement Social History (Updated 10/01/23 @ 16:[address] Alonso Marte MD) household members: spouse Smoking Status: Former smoker alcohol intake: never substance use type: does not use ROS Constitutional Constitutional: Denies chills, fever(s) or weight gain ENT HEENT: Denies headache(s), nasal congestion or nasal discharge Cardiovascular Cardiovascular: Denies chest pain or palpitations Respiratory/Chest Respiratory/Chest: Denies cough, excessive phlegm production or shortness of breath with exertion Gastrointestinal Gastrointestinal: Denies abdominal pain, nausea or vomiting Genitourinary Genitourinary: Denies dysuria Musculoskeletal Musculoskeletal: Denies joint pain or joint swelling Integumentary Integumentary: Denies rash or wounds Neurologic Neurologic: Denies focal weakness, numbness or tingling Psychiatric Psychiatric: Denies anxiety, auditory hallucinations, depression, homicidal ideation or suicidal ideation Physical Exam Const alert General Appearance: cooperative HEENT normocephalic Eyes PERRL and EOMs intact bilaterally Neck supple, no JVD and no carotid bruits Resp normal respiratory effort, normal air movement and clear to auscultation bilaterally Cardio regular rate and regular rhythm GI normal to inspection, nondistended, normoactive bowel sounds, non-tender and non-distended Extremity normal capillary refill General Extremity: Negative for edema Skin no rashes or lesions noted General Skin Exam: no breakdown Neuro Neuro Narrative: Right lower extremity spastic hemiparesis. Psych affect normal Appearance: appropriate Assessment & Plan Assessment/Plan (1) Debility: (2) Transient ischemic attack: (3) CVA (cerebral vascular accident): (4) HTN (hypertension): (5) Depression: (6) Anxiety: (7) Vitamin D deficiency: (8) Diabetes mellitus: (9) HLD (hyperlipidemia): (10) Insomnia: (11) GERD (gastroesophageal reflux disease): (12) Muscle spasm: (13) Overactive bladder: (14) Heart failure with reduced ejection fraction: PLAN: Plan 68 year old female with below past medical history hospitalized for TIA, admitted to TCU with debility, here for rehabilitation, strengthening, prior to discharge home with . Debility - PT/OT. Cognition - ST. Pain - Tylenol 1000mg q6 prn pain (1-10). Bowel - senna/colace 1 tablet bid, Magnesium citrate 300ml daily prn. Adult immunization - Administer pneumonia vaccine, covid vaccine, flu vaccine as appropriate. DVT prophylaxis - Lovenox 40mg sc daily. Stroke - Aspirin 81mg daily, Plavix 75mg daily. Hyperlipidemia - Atorvastatin 40mg qhs. Muscle spasm - Baclofen 5mg bid. GERD - Pantoprazole 40mg bid, TUMS 500mg tidcm prn. Vitamin D deficiency - D3 50mcg qhs. Depression - Citalopram 20mg qhs, stable chronic shelter use, GDR not recommended. Anxiety - Clonazepam 1mg qhs, stable chronic intermediate manager use, GDR not recommended. Diabetes Mellitus II - Metformin 500mg daily, Jardiance 10mg daily. Nutrition - Glucerna Shake 120ml 4x/day, MVI 1 tablet daily. Heart failure reduced ejection fraction s/p resynchronization/defibrillator placement - Metoprolol succinate 12.5mg daily, Entresto 24/26mg 1/2 tablet bid, Aldactone 12.5mg MWF. Overactive bladder - Tolterodine 2mg daily prn. Insomnia - Trazodone 50mg qhs prn, stable chronic intermediate manager use, GDR not recommended. Leg cramp - Vitamin B complex 1 cap daily.
[2023-10-01] MEDS: Glucerna Shake 120 ML LIQUID PO ×2 (17:52→21:28)
[2023-10-01 18:49] VITALS: PULSE 68; RESP 18; O2SAT 97
[2023-10-01] MEDS: clonazePAM 1 MG Tablet PO (21:29)
[2023-10-01] MEDS: Atorvastatin Calcium 40 MG Tablet PO (21:31)
[2023-10-01] MEDS: Baclofen 10 MG Tablet 5 MG PO (21:31)
[2023-10-01] MEDS: Senna/Docusate Sodium 1 Tablet PO (21:31)
[2023-10-01] MEDS: SACUBITRIL/VALSARTAN 24/26 MG TABLET 0.5 EACH PO (21:32)
[2023-10-01] MEDS: Citalopram 20 MG Tablet PO (21:32)
[2023-10-01] MEDS: Clopidogrel Bisulfate 75 MG Tablet PO (21:33)
[2023-10-01] MEDS: Cholecalciferol (VIT D3) 25 MCG TABLET (1,000 UNITS) 50 MCG PO (21:33)
[2023-10-01] MEDS: Pantoprazole Sodium 40 MG Tablet PO (21:33)
[2023-10-01] MEDS: traZODone 50 MG Tablet PO (21:35)
[2023-10-02] MEDS: Enoxaparin 40 MG/0.4 ML Syringe SC (05:04)
[2023-10-02] MEDS: Glucerna Shake 120 ML LIQUID PO ×3 (05:07→21:37)
[2023-10-02 06:48] LABS: Bedside Glucose 153 mg/dL (74-106)
[2023-10-02 08:09] LABS: Absolute Lymphocyte Count 2.34 X10^3/uL (0.83-4.51); Absolute Neutrophil Count 2.4 X10^3/uL (2.0-7.7); Basophil# 0.04 X10^3/uL; Basophil% 0.7 % (0-1); Eosinophil# 0.11 X10^3/uL; Eosinophils% 2.1 % (0-5); Hematocrit 37.5 % (37-47); Hemoglobin 11.8 g/dL (12.0-15.0); Lymphocyte # 2.34 X10^3/ul (0.83-4.51); Lymphocyte % 43.7 % (19-41); Mean Corp Hgb Conc 31.5 g/dL (32-36); Mean Corpuscular Hgb 30.4 pg (27.0-32.0); Mean Corpuscular Volume 96.6 fL (81-99); Mean Platelet Vol. 11.4 fl (6.2-12.0); Monocyte# 0.41 X10^3/uL; Monocyte% 7.7 % (0-10); NRBC Flagged by Analyzer 0 % (0-5); Neutrophil # 2.44 X10^3/uL (2.7-7.7); Neutrophil % 45.6 % (47-70); Platelet Count 136 K/mm3 (150-450); RBC Distribution Width CV 13.3 % (11.6-14.6); RBC Distribution Width SD 47.2 fl (35.1-43.9); Red Blood Count 3.88 M/mm3 (4.2-5.4); White Blood Count 5.4 K/mm3 (4.4-11.0)
[2023-10-02 08:53] LABS: Anion Gap 2 (5-15); BUN 17 mg/dL (7-18); BUN/Creat Ratio 17.6 RATIO (10-20); Chloride 110 mmol/L (98-107); Creatinine, Serum 0.96 mg/dL (0.55-1.02); EST Glomerular Filtration Rate 61 mL/min (>60); Est Glom Filt Rate - Afr Amer 73 mL/min (>60); Glucose 154 mg/dL (74-106); Potassium 3.7 mmol/L (3.5-5.1); Sodium Level 140 mmol/L (136-145)
[2023-10-02 10:02] VITALS: BP 111/57; PULSE 63; RESP 17; TEMP 37.2; O2SAT 99
[2023-10-02] MEDS: Vitamin B Comp W-C Capsule 1 CAP PO (10:04)
[2023-10-02] MEDS: Aspirin E.C. 81 MG Tablet PO (10:04)
[2023-10-02] MEDS: SACUBITRIL/VALSARTAN 24/26 MG TABLET 0.5 EACH PO ×2 (10:05→21:37)
[2023-10-02] MEDS: metFORMIN HCl 500 MG Tablet PO (10:05)
[2023-10-02] MEDS: Multivitamins,Therapeutic Tablet 1 TABLET PO (10:05)
[2023-10-02] MEDS: Empagliflozin 10 MG Tablet PO (10:06)
[2023-10-02 10:07] VITALS: PULSE 63
[2023-10-02] MEDS: Pantoprazole Sodium 40 MG Tablet PO ×2 (10:07→21:36)
[2023-10-02] MEDS: Senna/Docusate Sodium 1 Tablet PO ×2 (10:07→21:36)
[2023-10-02] MEDS: Metoprolol(XL)Succ 25 MG Tablet 12.5 MG PO (10:07)
[2023-10-02] MEDS: Baclofen 10 MG Tablet 5 MG PO ×2 (10:07→21:37)
[2023-10-02] MEDS: Tuberculin,Purif.prot.deriv. 50 TU/ML Vial 0.1 ML ID (12:24)
[2023-10-02 20:00] VITALS: PULSE 60; RESP 16; O2SAT 94
[2023-10-02] MEDS: Cholecalciferol (VIT D3) 25 MCG TABLET (1,000 UNITS) 50 MCG PO (21:36)
[2023-10-02] MEDS: Atorvastatin Calcium 40 MG Tablet PO (21:37)
[2023-10-02] MEDS: Clopidogrel Bisulfate 75 MG Tablet PO (21:37)
[2023-10-02] MEDS: clonazePAM 1 MG Tablet PO (21:37)
[2023-10-02] MEDS: traZODone 50 MG Tablet PO (21:38)
[2023-10-02] MEDS: Citalopram 20 MG Tablet PO (21:38)
[2023-10-03] MEDS: Enoxaparin 40 MG/0.4 ML Syringe SC (05:51)
[2023-10-03] MEDS: Glucerna Shake 120 ML LIQUID PO ×4 (05:52→21:56)
[2023-10-03 05:54] VITALS: PULSE 62; RESP 16; O2SAT 92
[2023-10-03 06:13] LABS: Bedside Glucose 145 mg/dL (74-106)
[2023-10-03 09:11] VITALS: BP 112/49; PULSE 71; RESP 16; TEMP 36.6; O2SAT 96
[2023-10-03] MEDS: Pantoprazole Sodium 40 MG Tablet PO ×2 (09:13→21:57)
[2023-10-03] MEDS: Vitamin B Comp W-C Capsule 1 CAP PO (09:13)
[2023-10-03] MEDS: metFORMIN HCl 500 MG Tablet PO (09:13)
[2023-10-03] MEDS: Multivitamins,Therapeutic Tablet 1 TABLET PO (09:13)
[2023-10-03] MEDS: Empagliflozin 10 MG Tablet PO (09:14)
[2023-10-03] MEDS: Baclofen 10 MG Tablet 5 MG PO ×2 (09:14→21:56)
[2023-10-03] MEDS: SACUBITRIL/VALSARTAN 24/26 MG TABLET 0.5 EACH PO ×2 (09:14→21:55)
[2023-10-03 09:15] VITALS: PULSE 71
[2023-10-03] MEDS: Senna/Docusate Sodium 1 Tablet PO (09:15)
[2023-10-03] MEDS: Metoprolol(XL)Succ 25 MG Tablet 12.5 MG PO (09:15)
[2023-10-03] MEDS: Aspirin E.C. 81 MG Tablet PO (09:15)
--- NOTE | 2023-10-03 10:35 | PHA.CONS_ITS ---
Documented by User: Talat Cameron 10/03/23 11:16 TCU RX Drug Regimen Review Subjective/Objective Subjective/Objective: Subjective: 68 year old female with below past medical history hospitalized for TIA, admitted to TCU with debility, here for rehabilitation, strengthening, prior to discharge home with . Objective: Allergies No Known Allergies Allergy (Verified 09/28/23 20:19) Current Medications Generic Name Dose Route Start Last Admin Trade Name Freq PRN Reason Stop Dose Admin Acetaminophen 1,000 mg 10/01/23 16:19 Acetaminophen 500 Mg Tablet PO Q6H PRN PRN Pain Score 1-10 Aspirin 81 mg 10/02/23 08:00 10/03/23 09:15 Aspirin E.C. 81 Mg Tablet PO 81 mg DAILYCM VERONA Administration Atorvastatin Calcium 40 mg 10/01/23 22:00 10/02/23 21:37 Atorvastatin Calcium 40 Mg Tablet PO 40 mg QHS VERONA Administration Baclofen 5 mg 10/01/23 22:00 10/03/23 09:14 Baclofen 10 Mg Tablet PO 5 mg BID VERONA Administration Calcium Carbonate 500 mg 10/01/23 15:51 Calcium Carbonate 500 Mg Tablet PO TIDCM PRN INDIGESTION Cholecalciferol 50 mcg 10/01/23 22:00 10/02/23 21:36 Cholecalciferol (Vit D3) 25 Mcg Tablet (1,000 Units) PO 50 mcg QHS VERONA Administration Citalopram Hydrobromide 20 mg 10/01/23 22:00 10/02/23 21:38 Citalopram 20 Mg Tablet PO 20 mg QHS VERONA Administration Clonazepam 1 mg 10/01/23 22:00 10/02/23 21:37 Clonazepam 1 Mg Tablet PO 1 mg QHS VERONA Administration Clopidogrel Bisulfate 75 mg 10/01/23 22:00 10/02/23 21:37 Clopidogrel Bisulfate 75 Mg Tablet PO 75 mg QHS VERONA Administration Empagliflozin 10 mg 10/02/23 10:00 10/03/23 09:14 Empagliflozin 10 Mg Tablet PO 10 mg DAILY VERONA Administration Enoxaparin Sodium 40 mg 10/02/23 06:00 10/03/23 05:51 Enoxaparin 40 Mg/0.4 Ml Syringe SC 40 mg DAILY@0600 VERONA Administration Magnesium Citrate 300 ml 10/01/23 16:19 Magnesium Citrate 300 Ml PO DAILY PRN Constipation Metformin HCl 500 mg 10/02/23 08:00 10/03/23 09:13 Metformin Hcl 500 Mg Tablet PO 500 mg DAILYCM VERONA Administration Metoprolol Succinate 12.5 mg 10/02/23 10:00 10/03/23 09:15 Metoprolol(Xl)Succ 25 Mg Tablet PO 12.5 mg DAILY VERONA Administration Protocol Multivitamins 1 tablet 10/02/23 08:00 10/03/23 09:13 Multivitamins,Therapeutic Tablet PO 1 tablet DAILYCM VERONA Administration Multivitamins 1 cap 10/02/23 08:00 10/03/23 09:13 Vitamin B Comp W-C Capsule PO 1 cap DAILYCM VERONA Administration Nutritional Formula (Lactose Free) 120 ml 10/01/23 17:00 10/03/23 05:52 Glucerna Shake 120 Ml Liquid PO 120 ml 4X/DAY VERONA Administration Pantoprazole Sodium 40 mg 10/01/23 22:00 10/03/23 09:13 Pantoprazole Sodium 40 Mg Tablet PO 40 mg BID VERONA Administration Sacubitril/Valsartan 0.5 each 10/01/23 22:00 10/03/23 09:14 Sacubitril/Valsartan 24/26 Mg Tablet PO 0.5 each BID VERONA Administration Senna/Docusate Sodium 1 tablet 10/01/23 22:00 10/03/23 09:15 Senna/Docusate Sodium 1 Tablet PO 1 tablet BID VERONA Administration Spironolactone 12.5 mg 10/04/23 10:00 Spironolactone 25 Mg Tablet PO MOWEFR VERONA Tolterodine Tartrate 2 mg 10/01/23 15:17 Tolterodine Tartrate 2 Mg Cap.Sa PO DAILY PRN URINARY RETENTION Trazodone HCl 50 mg 10/01/23 15:17 10/02/23 21:38 Trazodone 50 Mg Tablet PO 50 mg DAILY PRN Administration ANXIETY Tuberculin PPD 0.1 ml 10/09/23 10:00 Tuberculin,Purif.Prot.Deriv. 50 Tu/Ml Vial ID 10/09/23 10:01 X1 ONE Problem List (Updated 10/01/23 @ 16:[address] Alonso Marte MD) Heart failure with reduced ejection fraction (Acute) Overactive bladder (Acute) Muscle spasm (Acute) GERD (gastroesophageal reflux disease) (Acute) Insomnia (Acute) Diabetes mellitus (Acute) Vitamin D deficiency (Acute) Anxiety (Acute) Depression (Acute) Transient ischemic attack (Acute) Debility (Acute) CVA (cerebral vascular accident) (Acute) HLD (hyperlipidemia) (Chronic) HTN (hypertension) (Chronic) Vital Signs Temp Pulse Resp BP Pulse Ox O2 Del Method 97.9 F 71 16 112/49 L 96 Room Air 10/03/23 09:11 10/03/23 09:15 10/03/23 09:11 10/03/23 09:11 10/03/23 09:11 10/03/23 09:11 Oxygen Delivery Method Room Air Weight: 61.099 kg Body Mass Index (BMI) 20.5 Sodium 140 mmol/L (136-145) 10/02/23 07:25 Potassium 3.7 mmol/L (3.5-5.1) 10/02/23 07:25 Chloride 110 mmol/L (98-107) H 10/02/23 07:25 Carbon Dioxide 28.0 mmol/L (21.0-32.0) 10/02/23 07:25 Anion Gap 2 (5-15) L 10/02/23 07:25 BUN 17 mg/dL (7-18) 10/02/23 07:25 Creatinine 0.96 mg/dL (0.55-1.02) 10/02/23 07:25 Est GFR (MDRD) Af Amer 73 mL/min (>60) 10/02/23 07:25 Est GFR (MDRD) Non-Af 61 mL/min (>60) 10/02/23 07:25 BUN/Creatinine Ratio 17.6 RATIO (10-20) 10/02/23 07:25 Glucose 154 mg/dL (74-106) H 10/02/23 07:25 Assessment/Plan: 1. Pain: acetaminophen 1000 mg PO Q6H PRN pain. The patient has not required any PRN doses of acetaminophen so far this admission. Please continue to monitor pain scores, PRN medication usage, and LFTs (AST/ALT = 10/02 on 12/10/14). 2. Bowel: senna/docusate 1 tablet PO BID, magnesium citrate 300 mL PO daily PRN constipation. The patient has not required any PRN doses of magnesium citrate so far this admission. The patient's last bowel movement was on 09/29/23. Please continue to monitor for bowel movements, PRN medication usage, diarrhea, and constipation. As the patient has not had a bowel movement in 4 days please consider administering magnesium citrate. 3. Stroke/Hyperlipidemia: aspirin 81 mg PO daily, clopidogrel 75 mg PO daily, atorvastatin 40 mg PO QHS. Please continue to monitor for s/s of stroke, for s/s of bleeding/excessive bruising, hemoglobin counts (Hgb = 11.8 g/dL on 10/02/23), platelet counts (PLT = 136 K/mm3 on 10/02/23), for GI distress with aspirin administration, for myopathies, LFTs (AST/ALT = 10/02 on 12/10/14), and lipid levels (cholesterol = 106 mg/dL with LDL = 36 mg/dL on 09/29/23). 4. DVT prophylaxis: enoxaparin 40 mg SC daily. Please continue to monitor for s/s of a DVT such as lower extremity erythema/pain/swelling, for s/s of bleeding/excessive bruising, hemoglobin counts (Hgb = 11.8 g/dL on 10/02/23), platelet counts (PLT = 136 K/mm3 on 10/02/23), and renal function (serum creatinine = 0.96 mg/dL with creatinine clearance ~ 53 mL/min on 10/02/23). 5. Heart failure reduced ejection fraction: empagliflozin 10 mg PO daily, meto prolol succinate 12.5 mg PO daily, sacubitril/valsartan 24-26 mg tablet 0.5 tabs PO BID, spironolactone 12.5 mg PO Mondays, Wednesdays and Fridays. Please continue to monitor for s/s of heart failure exacerbation including shortness of breath, lower extremity edema, weights (recent weights 60.3-61.9 kg appears stable), respiratory rates (recent range = 14-18 breaths/min), for s/s of UTI, renal function (eGFR = 61 mL/min on 10/02/23), for s/s of dehydration, for fatigue, heart rates (recent range = 60-71 beats/min), blood pressures (recent range = 111-162/49-73 mmHg), potassium levels (K = 3.7 mmol/L on 10/02/23), and for s/s of angioedema. 6. GERD: calcium carbonate 500 mg PO TID with meals PRN indigestion, pantoprazole 40 mg PO daily. The patient has not required any PRN doses of calcium carbonate so far this admission. Please continue to monitor for s/s of GERD, for diarrhea that could be associated with clostridium difficile infection, and for s/s of bone resorption issues such as fractures. 7. Diabetes Mellitus II: metformin 500 mg PO daily, empagliflozin 10 mg PO daily. Please continue to monitor blood glucose levels (recent range = 105-182 mg/dL), hemoglobin A1C (no recent hemoglobin A1C documented), vitamin B-12 levels (no recent vitamin B12 level documented), renal function (serum creatinine = 0.96 mg/dL with creatinine clearance ~ 53 mL/min and eGFR = 61 mL/min on 10/02/23), for s/s of urinary tract infection, and for s/s of lactic acidosis and DKA. Please consider order hemoglobin A1C levels and vitamin B-12 levels as the patient does not have these levels recently documented. 8. Overactive bladder: tolterodine 2 mg PO daily PRN bladder spasms. The patient has not required any PRN doses of tolterodine so far this admission. Please continue to monitor for bladder spasms, PRN medication usage, for s/s of anticholinergic effects such as dry mouth, dry eyes, urinary retention, constipation and delirium, as well as for headache and dizziness. 9. Leg cramps/nutrition: vitamin B complex with vitamin C 1 PO daily, glucerna 120 mL PO 4 times per day, multivitamin 1 tablet PO daily with a meal. Please continue to monitor for leg cramps and nutritional status. 10. Muscle spasms: baclofen 5 mg PO BID. Please continue to monitor for muscle spasms, renal function (serum creatinine = 0.96 mg/dL with creatinine clearance ~ 53 mL/min on 10/02/23), for drowsiness, dizziness, nausea and vomiting. 11. Vitamin D deficiency: cholecalciferol 50 mcg PO QHS. Please continue to monitor for s/s of vitamin D deficiency and vitamin D levels (no recent vitamin D level documented). Please consider order a vitamin D level if clinically indicated. Assessment/Plan for indications treated with psychotropic medications: 1. Depression: citalopram 20 mg PO QHS. Please see provider note regarding stable chronic long-term use GDR not recommended. Please continue to monitor sodium levels (Na = 140 mmol/L on 10/02/23), for s/s of serotonin syndrome, for SI, nausea, dry mouth and sweating. 2. Anxiety: clonazepam 1 mg PO QHS. Please see provider note regarding stable chronic long-term use GDR not recommended. Please continue to monitor for di zziness, drowsiness, ataxia, and anxiety levels. 3. Insoma: trazodone 50 mg PO QHS prn insomnia. Please see provider note regarding stable chronic long-term use GDR not recommended. The patient has used 2 dose of PRN trazodone so far this admission. Please continue to monitor for insomnia, for s/s of orthostasis, for s/s of serotonin syndrome and for nausea/vomiting and dry mouth. Medical chart and medication regimen reviewed. The following medication irregularities or issues were identified: 1. Diabetes Mellitus II: metformin 500 mg PO daily, empagliflozin 10 mg PO daily. Please consider order hemoglobin A1C levels and vitamin B-12 levels as the patient does not have these levels recently documented. 2. Vitamin D deficiency: cholecalciferol 50 mcg PO QHS. Please consider order a vitamin D level if clinically indicated. Date Date of Note:: 10/03/23 Documented by User: Dr. Alonso Marte MD 10/03/23 13:49 TCU RX Drug Regimen Review Provider Comments Provider responsibility Provider Comments to Recommendations by Pharmacy: Agree
--- NOTE | 2023-10-03 21:28 | NURSING ---
Spoke w/ Dr. Marte via phone to update pt is requesting Senna-S be changed to PRN d/t loose stools and some bowel incontinence. New order received and read back- refer to
[2023-10-03] MEDS: Citalopram 20 MG Tablet PO (21:55)
[2023-10-03] MEDS: clonazePAM 1 MG Tablet PO (21:56)
[2023-10-03] MEDS: traZODone 50 MG Tablet PO (21:57)
[2023-10-03] MEDS: Cholecalciferol (VIT D3) 25 MCG TABLET (1,000 UNITS) 50 MCG PO (21:57)
[2023-10-03] MEDS: Atorvastatin Calcium 40 MG Tablet PO (21:57)
[2023-10-03] MEDS: Clopidogrel Bisulfate 75 MG Tablet PO (21:57)
[2023-10-04] MEDS: Enoxaparin 40 MG/0.4 ML Syringe SC (05:55)
[2023-10-04] MEDS: Glucerna Shake 120 ML LIQUID PO ×4 (05:55→21:56)
[2023-10-04 06:03] VITALS: PULSE 69; RESP 16; O2SAT 95
[2023-10-04 06:45] LABS: Bedside Glucose 120 mg/dL (74-106)
[2023-10-04] MEDS: Aspirin E.C. 81 MG Tablet PO (08:02)
[2023-10-04] MEDS: Multivitamins,Therapeutic Tablet 1 TABLET PO (08:02)
[2023-10-04] MEDS: metFORMIN HCl 500 MG Tablet PO (08:02)
[2023-10-04] MEDS: Vitamin B Comp W-C Capsule 1 CAP PO (08:02)
[2023-10-04] MEDS: Baclofen 10 MG Tablet 5 MG PO ×2 (10:31→21:55)
[2023-10-04] MEDS: Empagliflozin 10 MG Tablet PO (10:32)
[2023-10-04] MEDS: SACUBITRIL/VALSARTAN 24/26 MG TABLET 0.5 EACH PO ×2 (10:32→21:56)
[2023-10-04] MEDS: Pantoprazole Sodium 40 MG Tablet PO ×2 (10:32→21:57)
[2023-10-04] MEDS: Spironolactone 25 MG Tablet 12.5 MG PO (10:32)
[2023-10-04 10:33] VITALS: PULSE 64
[2023-10-04] MEDS: Metoprolol(XL)Succ 25 MG Tablet 12.5 MG PO (10:33)
--- NOTE | 2023-10-04 11:13 | NURSING ---
Offered covid vaccine, VIS provided. Patient refuses at this time.
--- NOTE | 2023-10-04 12:39 | NURSING ---
Customer Training Specialist Note; Activity Asset: Gunner Nazario is independent in her choice of daily activities. She prefers to do independent activities in her room and her will be here daily. While in her room she has her smartphone she plays games on and listens to her music, watches tv and will work on word search puzzles or read when is not visiting. She did state she prefers not to have visits from the therapy dog or grinding mill operator at this time. Staff did inform her of and family they may go outside if they inform staff they are leaving the unit.
--- NOTE | 2023-10-04 13:36 | CASEMGMT ---
Social Work SW met with patient to complete initial assessment. Introduced self and role. Verified contacts. arrived toward the end of assessment and pt granted permission for to remain. Confirmed DNR-CCA, no intubation. Educated to [facility] [place] insurance with NRD 10/05 and continued stay is not guaranteed with each review. Pt's goal is to return home with 's ongoing assistance from prior stroke. See SW assessment for psychosocial history. SW will continue to follow for DC planning. Ute Gutierrez, ANNALEE HOLLANDW
[2023-10-04 14:12] VITALS: BP 100/47; PULSE 61; RESP 18; TEMP 36.4; O2SAT 95
[2023-10-04] MEDS: traZODone 50 MG Tablet PO (21:55)
[2023-10-04] MEDS: clonazePAM 1 MG Tablet PO (21:55)
[2023-10-04] MEDS: Citalopram 20 MG Tablet PO (21:55)
[2023-10-04] MEDS: Atorvastatin Calcium 40 MG Tablet PO (21:57)
[2023-10-04] MEDS: Cholecalciferol (VIT D3) 25 MCG TABLET (1,000 UNITS) 50 MCG PO (21:57)
[2023-10-04] MEDS: Clopidogrel Bisulfate 75 MG Tablet PO (21:57)
[2023-10-05] MEDS: Glucerna Shake 120 ML LIQUID PO ×4 (06:17→21:35)
[2023-10-05] MEDS: Enoxaparin 40 MG/0.4 ML Syringe SC (06:18)
[2023-10-05 06:50] LABS: Bedside Glucose 126 mg/dL (74-106)
[2023-10-05] MEDS: metFORMIN HCl 500 MG Tablet PO (09:52)
[2023-10-05] MEDS: Baclofen 10 MG Tablet 5 MG PO ×2 (09:52→21:33)
[2023-10-05] MEDS: Aspirin E.C. 81 MG Tablet PO (09:52)
[2023-10-05] MEDS: Pantoprazole Sodium 40 MG Tablet PO ×2 (09:53→21:35)
[2023-10-05] MEDS: Vitamin B Comp W-C Capsule 1 CAP PO (09:53)
[2023-10-05] MEDS: Multivitamins,Therapeutic Tablet 1 TABLET PO (09:53)
[2023-10-05 09:54] VITALS: BP 114/54; PULSE 61
[2023-10-05] MEDS: Metoprolol(XL)Succ 25 MG Tablet 12.5 MG PO (09:54)
[2023-10-05] MEDS: Empagliflozin 10 MG Tablet PO (09:54)
[2023-10-05] MEDS: SACUBITRIL/VALSARTAN 24/26 MG TABLET 0.5 EACH PO ×2 (09:54→21:34)
[2023-10-05 09:58] VITALS: BP 114/54; PULSE 61
[2023-10-05 11:08] VITALS: BMI 20.5
[2023-10-05 14:45] VITALS: BP 117/64; PULSE 61; RESP 16; TEMP 36.7; O2SAT 97
[2023-10-05 21:15] VITALS: O2SAT 97
[2023-10-05] MEDS: Cholecalciferol (VIT D3) 25 MCG TABLET (1,000 UNITS) 50 MCG PO (21:32)
[2023-10-05] MEDS: traZODone 50 MG Tablet PO (21:33)
[2023-10-05] MEDS: clonazePAM 1 MG Tablet PO (21:33)
[2023-10-05] MEDS: Clopidogrel Bisulfate 75 MG Tablet PO (21:34)
[2023-10-05] MEDS: Citalopram 20 MG Tablet PO (21:34)
[2023-10-05] MEDS: Atorvastatin Calcium 40 MG Tablet PO (21:35)
[2023-10-05 21:37] VITALS: BP 140/50; PULSE 59
[2023-10-06] MEDS: Glucerna Shake 120 ML LIQUID PO ×4 (06:02→21:58)
[2023-10-06] MEDS: Enoxaparin 40 MG/0.4 ML Syringe SC (06:02)
[2023-10-06 06:27] LABS: Bedside Glucose 140 mg/dL (74-106)
[2023-10-06] MEDS: metFORMIN HCl 500 MG Tablet PO (08:44)
[2023-10-06] MEDS: Vitamin B Comp W-C Capsule 1 CAP PO (08:44)
[2023-10-06] MEDS: Spironolactone 25 MG Tablet 12.5 MG PO (08:44)
[2023-10-06] MEDS: Aspirin E.C. 81 MG Tablet PO (08:44)
[2023-10-06] MEDS: Multivitamins,Therapeutic Tablet 1 TABLET PO (08:44)
[2023-10-06 08:46] VITALS: PULSE 70
[2023-10-06] MEDS: Metoprolol(XL)Succ 25 MG Tablet 12.5 MG PO (08:46)
[2023-10-06] MEDS: Empagliflozin 10 MG Tablet PO (08:46)
[2023-10-06] MEDS: Pantoprazole Sodium 40 MG Tablet PO ×2 (08:46→21:58)
[2023-10-06] MEDS: SACUBITRIL/VALSARTAN 24/26 MG TABLET 0.5 EACH PO ×2 (08:47→21:59)
[2023-10-06] MEDS: Baclofen 10 MG Tablet 5 MG PO (08:48)
--- NOTE | 2023-10-06 13:48 | CASEMGMT ---
Social Work IDT met with patient and for care plan meeting. Discussed patient's progress in PT/OT/ST/SN. Educated to [facility] insurance with NRD 10/11, EDC 10/16, continued stay not guaranteed with each review. Pt's goal is to return home with 's assistance. SW will continue to follow for DC planning. Ute Gutierrez, WATER QUALITY CONTROL ENGINEER OFFICE ASST
[2023-10-06 16:00] VITALS: BP 105/60; PULSE 60; RESP 14; TEMP 36.5; O2SAT 97
[2023-10-06] MEDS: traZODone 50 MG Tablet PO (21:56)
[2023-10-06] MEDS: clonazePAM 1 MG Tablet PO (21:56)
[2023-10-06] MEDS: Cholecalciferol (VIT D3) 25 MCG TABLET (1,000 UNITS) 50 MCG PO (21:56)
[2023-10-06] MEDS: Atorvastatin Calcium 40 MG Tablet PO (21:57)
[2023-10-06] MEDS: Baclofen 10 MG Tablet PO (21:57)
[2023-10-06] MEDS: Clopidogrel Bisulfate 75 MG Tablet PO (21:57)
[2023-10-06] MEDS: Citalopram 20 MG Tablet PO (21:58)
[2023-10-07] MEDS: Glucerna Shake 120 ML LIQUID PO ×2 (05:46→12:02)
[2023-10-07] MEDS: Enoxaparin 40 MG/0.4 ML Syringe SC (05:47)
[2023-10-07 06:36] LABS: Bedside Glucose 153 mg/dL (74-106)
[2023-10-07] MEDS: Vitamin B Comp W-C Capsule 1 CAP PO (09:30)
[2023-10-07] MEDS: Baclofen 10 MG Tablet PO (09:41)
[2023-10-07] MEDS: Pantoprazole Sodium 40 MG Tablet PO (09:41)
[2023-10-07] MEDS: Empagliflozin 10 MG Tablet PO (09:41)
[2023-10-07] MEDS: Aspirin E.C. 81 MG Tablet PO (09:41)
[2023-10-07 09:42] VITALS: BP 103/47; PULSE 75
[2023-10-07] MEDS: Multivitamins,Therapeutic Tablet 1 TABLET PO (09:42)
[2023-10-07] MEDS: SACUBITRIL/VALSARTAN 24/26 MG TABLET 0.5 EACH PO (09:42)
[2023-10-07] MEDS: metFORMIN HCl 500 MG Tablet PO (09:42)
[2023-10-07] MEDS: Metoprolol(XL)Succ 25 MG Tablet 12.5 MG PO (09:42)
--- NOTE | 2023-10-07 10:42 | MDS.RN ---
MDS pain interview completed.
[2023-10-07 12:45] LABS: Bedside Glucose 126 mg/dL (74-106)
--- NOTE | 2023-10-07 19:38 | DS.PCM_ITS ---
Providers Date of Admission: 10/01/23 Primary Care Physician: Dr. Joo Campos DO Reason For Visit: SUSPECTED CVA WITH KNOWN PFO Diagnosis Discharge Diagnosis (1) Debility: Status: Acute Code(s): R53.81 - Other malaise (2) Transient ischemic attack: Status: Acute Code(s): G45.9 - Transient cerebral ischemic attack, unspecified (3) CVA (cerebral vascular accident): Status: Acute Code(s): I63.9 - Cerebral infarction, unspecified (4) HTN (hypertension): Status: Chronic Code(s): I10 - Essential (primary) hypertension (5) Depression: Status: Acute Code(s): F32.A - Depression, unspecified (6) Anxiety: Status: Acute Code(s): F41.9 - Anxiety disorder, unspecified (7) Vitamin D deficiency: Status: Acute Code(s): E55.9 - Vitamin D deficiency, unspecified (8) Diabetes mellitus: Status: Acute Code(s): E11.9 - Type 2 diabetes mellitus without complications (9) HLD (hyperlipidemia): Status: Chronic Code(s): E78.5 - Hyperlipidemia, unspecified (10) Insomnia: Status: Inactive Code(s): G47.00 - Insomnia, unspecified (11) GERD (gastroesophageal reflux disease): Status: Acute Code(s): K21.9 - Gastro-esophageal reflux disease without esophagitis (12) Muscle spasm: Status: Acute Code(s): M62.838 - Other muscle spasm (13) Overactive bladder: Status: Acute Code(s): N32.81 - Overactive bladder (14) Heart failure with reduced ejection fraction: Status: Inactive Code(s): I50.20 - Unspecified systolic (congestive) heart failure Plan 68 year old female with below past medical history hospitalized for TIA, admitted to TCU with debility, here for rehabilitation, strengthening, prior to discharge home with . * Debility - PT/OT. * Cognition - ST. * Pain - Tylenol 1000mg q6 prn pain (1-10). * Bowel - senna/colace 1 tablet bid, Magnesium citrate 300ml daily prn. * Adult immunization - Administer pneumonia vaccine, covid vaccine, flu vaccine as appropriate. * DVT prophylaxis - Lovenox 40mg sc daily. * Stroke - Aspirin 81mg daily, Plavix 75mg daily. * Hyperlipidemia - Atorvastatin 40mg qhs. * Muscle spasm - Baclofen 5mg bid. * GERD - Pantoprazole 40mg bid, TUMS 500mg tidcm prn. * Vitamin D deficiency - D3 50mcg qhs. * Depression - Citalopram 20mg qhs, stable chronic long term care pharmacist use, GDR not recommended. * Anxiety - Clonazepam 1mg qhs, stable chronic fci use, GDR not recommended. * Diabetes Mellitus II - Metformin 500mg daily, Jardiance 10mg daily. * Nutrition - Glucerna Shake 120ml 4x/day, MVI 1 tablet daily. * Heart failure reduced ejection fraction s/p resynchronization/defibrillator placement - Metoprolol succinate 12.5mg daily, Entresto 24/26mg 1/2 tablet bid, Aldactone 12.5mg MWF. * Overactive bladder - Tolterodine 2mg daily prn. * Insomnia - Trazodone 50mg qhs prn, stable chronic fci use, GDR not recommended. * Leg cramp - Vitamin B complex 1 cap daily. Medications at Discharge Home Medications citalopram 20 mg tablet 20 mg PO QHS depression 11/18/14 clonazepam 1 mg tablet 1 mg PO QHS anxiety 11/18/14 metformin 500 mg tablet 500 mg PO DAILY diabetes 11/18/14 multivitamin with folic acid 400 mcg tablet (Thera) 1 tab PO DAILY vitamin 11/18/14 trazodone 50 mg tablet 50 mg PO DAILY PRN Anxiety 11/18/14 clopidogrel 75 mg tablet 1 tab PO QHS anti platelet 05/18/16 empagliflozin 10 mg tablet (Jardiance) 10 mg PO DAILY diabetes 09/28/23 metoprolol succinate 25 mg tablet,extended release 24 hr 12.5 mg PO DAILY blood pressure 09/28/23 pantoprazole 40 mg tablet,delayed release 40 mg PO BID stomach acid 09/28/23 sacubitril-valsartan 0.5 tab PO BID HTN 09/28/23 cholecalciferol (vitamin D3) 25 mcg (1,000 unit) tablet 50 mcg (2 x 25 mcg (1,000 unit)) PO QHS supplement #0 tabs 09/30/23 aspirin 81 mg tablet,delayed release 81 mg PO DAILY heart 10/01/23 atorvastatin 40 mg tablet 40 mg PO QHS CHOLESTEROL 10/07/23 baclofen 10 mg tablet 10 mg PO BID MUSCLE SPASMS 10/07/23 enoxaparin 40 mg/0.4 mL subcutaneous syringe 40 mg subcut 0600 BLOOD THINNER 10/07/23 spironolactone 25 mg tablet 12.5 mg PO MOWEFR FLUID 10/07/23 Hospital Course Operations None Procedures None Summary of Care Provided Minutes Spent on Discharge: 15 Hospital Course: 68 year old female with below past medical history hospitalized for TIA, admitted to TCU with debility, here for rehabilitation, strengthening, prior to discharge home with . 10/07/2023 Stroke alert, right sided weakness. Discharge to [facility] ED 10/07/2023 for evaluation, admission to [facility]. Weight / BMI Weight Weight: 61.28 kg Body Mass Index (BMI) 20.5 ABG / Lab / Microbiology Data 10/02/23 07:25 10/02/23 07:25 Laboratory: Laboratory Results - last 24 hr 10/07/23 06:19: POC Glucose 153 H 10/07/23 12:27: POC Glucose 126 H D/C Instructions Discharge Diet: - (NPO) Discharge Activity: Return to Normal Activity, May Shower and Use Walker Weight Bearing Status: Weight bearing as tolerated Call your doctor if you observe: Fever of 101 or Higher, Inability to urinate, Inability to have a bowel movement, Shortness of breath, Dizziness, Fainting spells, Swelling in the ankles, Chest pain and Uncontrolled pain Additional Instructions: Discharge to [facility] ED 10/07/2023 for evaluation, admission to [facility]. Meaningful Use Info Meaningful Use Diagnoses (Choose all that apply): None applicable Discharge Plan Admission Admit Date/Time: 10/01/23 14:45 Primary Reason for Your Visit: Debility. Attending Provider: Alonso Maret Chi Primary Care Provider: Joo Campos Instructions Additional Instructions / Restrictions: Discharge to [facility] ED 10/07/2023 for evaluation, admission to [facility]. Discharge Orders/Prescriptions Prescriptions: No Action metformin 500 MG tablet 500 mg PO DAILY trazodone 50 MG tablet 50 mg PO DAILY PRN (Reason: Anxiety) clonazepam 1 MG tablet 1 mg PO QHS citalopram 20 MG tablet 20 mg PO QHS multivitamin with folic acid [Thera] 1 TABLET tablet 1 tab PO DAILY clopidogrel 75 MG tablet 1 tab PO QHS sacubitril-valsartan [Entresto] 0.5 tab PO BID Jardiance 10 mg tablet 10 mg PO DAILY metoprolol succinate 25 mg tablet extended release 24 hr 12.5 mg PO DAILY pantoprazole 40 MG tablet 40 mg PO BID cholecalciferol (vitamin D3) 25 mcg (1,000 unit) Tablet 50 mcg PO QHS Qty: 0 0RF aspirin 81 mg tablet,delayed release (DR/EC) 81 mg PO DAILY atorvastatin 40 mg tablet 40 mg PO QHS spironolactone 25 mg tablet 12.5 mg PO MOWEFR baclofen 10 mg tablet 10 mg PO BID enoxaparin 40 mg/0.4 mL syringe 40 mg subcut 0600 Referrals / Follow Up: Joo Campos DO [Primary Care Provider] - Disposition Disposition (needs filled in before D/C Order can be placed): Acute Care Hospital [facility]
--- NOTE | 2023-10-12 12:37 | MDS.RN ---
Information for the mds was obtained from review of the clinical record, interview of resident, staff, and direct observation of resident's care.
== END 2023-10-07 14:41 | disposition short-term general hospital (02) | DRG 68 ==
PROVIDERS: Admitting Provider Family Medicine Geriatric Medicine; PCP Student in an Organized Health Care Education/Training Program; Visit Provider Family Medicine Geriatric Medicine
DX: I65.23 Occlusion and stenosis of bilateral carotid arteries (principal); Q21.12 Patent foramen ovale; I50.22 Chronic systolic (congestive) heart failure; I11.0 Hypertensive heart disease with heart failure; E11.9 Type 2 diabetes mellitus without complications; F32.A Depression, unspecified; E55.9 Vitamin D deficiency, unspecified; K21.9 Gastro-esophageal reflux disease without esophagitis; E78.00 Pure hypercholesterolemia, unspecified; I25.10 Atherosclerotic heart disease of native coronary artery without angina pectoris; I25.5 Ischemic cardiomyopathy; F41.9 Anxiety disorder, unspecified; Z79.82 Long term (current) use of aspirin; Z95.5 Presence of coronary angioplasty implant and graft; Z87.891 Personal history of nicotine dependence; G47.00 Insomnia, unspecified; Z79.84 Long term (current) use of oral 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 drugs; N32.81 Overactive bladder; Z79.899 Other long term (current) drug therapy; Z79.02 Long term (current) use of antithrombotics/antiplatelets; Z95.810 Presence of automatic (implantable) cardiac defibrillator; R53.1 Weakness
CPT/HCPCS: 36415; 80048; 82962; 85025; 92523; 92610; 97110; 97129; 97130; 97161; 97165; 97530; 97535; 97802

== ENCOUNTER 2023-10-07 12:34 | Observation (INO) | payer MEDICARE, SELFPAY ==
[2023-10-07] VITALS (11 sets, daily range): BP systolic 107–157; BP diastolic 55–98; PULSE 46–85; RESP 15–28; TEMP 36.4–36.7; O2SAT 94–99; BMI 21.2; BMI 20.7
--- NOTE | 2023-10-07 12:37 | CT_ITS ---
STUDY: CT HEAD STROKE PROTOCOL W/O CONTRAST INJECTION REASON FOR EXAM: Female, 68 years old. Neuro deficit, acute, stroke suspected RADIATION DOSAGE (If Supplied By Facility): CTDIvol = ( 44.99 ) mGy, DLP = ( 829.85 ) mGycm TECHNIQUE: Transaxial CT imaging of the brain was performed without administration of intravenous contrast material. Individualized dose optimization techniques were used for this CT. COMPARISON: Comparison is made with prior study dated September 28, 2023. FINDINGS: Normal soft tissue structures. Normal calvarium. There is mild cerebral atrophy with widening of the extra-axial spaces and ventricular dilatation. Stable encephalomalacia in the left hemisphere involving the left parietal and temporal lobes. Mild dilatation of the left lateral ventricle due to the encephalomalacia. Normal basal ganglia and thalami. Normal brainstem. Normal cerebellum. There is no intracranial hemorrhage. There are no findings of an acute ischemic infarction. Atherosclerotic calcification of the cavernous portions of the internal carotid arteries bilaterally. Normal visualized paranasal sinuses. ASPECT score: 8 CT/STROKE Brain/Head without Cont IMPRESSION: Chronic involutional changes of the brain. Stable examination. N.B. : The above Results were Read Back by Yousif Elena MD to Dr Estephania DO, and understanding confirmed on 10/07/2023 12:53:48 (ET). Electronically Signed: Yousif Elena MD at 12:55 EST ,
--- NOTE | 2023-10-07 12:37 | CT_ITS ---
STUDY: CTA HEAD AND NECK WITH CONTRAST REASON FOR EXAM: Female, 68 years old. Neuro deficit, acute, stroke suspected RADIATION DOSAGE (If Supplied By Facility): CTDIvol = ( 21.96 ) mGy, DLP = ( 778.26 ) mGycm TECHNIQUE: CT angiography was performed with a multi-detector CT scanner. Data acquisition was obtained from the skull base through the vertex following intravenous administration of IV 100mL [id number]-[id number]. MIP images were reconstructed from the axial data set. Post-processing of the angiographic images was performed, with multiplanar reformation and 3D reconstruction. Individualized dose optimization techniques were used for this CT. COMPARISON: Comparison is made with prior study dated September 28, 2023. FINDINGS: Normal bilateral petrous carotid arteries. There is calcified plaque formation of the right cavernous carotid artery, without a cross-sectional luminal stenosis. There is calcified plaque formation of the left cavernous carotid artery, without a cross-sectional luminal stenosis. Normal right A1 segments of the anterior cerebral artery. Normal left A1 segments of the anterior cerebral artery. Normal intact anterior communicating artery (ACOM). Normal bilateral A2 segments of the anterior cerebral arteries. Normal right M1 and M2 segments of the middle cerebral arteries, with a normal M1 bifurcation. Normal left M1 and M2 segments of the middle cerebral arteries, with a normal M1 bifurcation. Normal right posterior communicating artery (PCOM). Normal left posterior communicating artery (PCOM). Normal bilateral vertebral arteries. Normal basilar artery with a normal basilar bifurcation. The visualized bilateral superior cerebellar (SCA) arteries are normal. Normal bilateral P1, P2 and visualized P3 segments of the posterior cerebral arteries. There is no demonstrated aneurysm of the [place]. AORTIC ARCH: There is mild atherosclerotic calcific plaque formation of the aortic arch and great vessels arising from the aortic arch, without a hemodynamically significant stenosis. There is a normal origin of the brachiocephalic, left common carotid, and left subclavian arteries. Normal origins of the brachiocephalic, left common carotid, and left subclavian arteries. RIGHT CAROTID ARTERIES: Normal right common carotid artery (CCA). Normal right common carotid bulb. There is mild atherosclerotic plaque formation of the origin of the right internal carotid artery with less than 50% cross sectional diameter stenosis. Normal visualized cervical portion of the right internal carotid artery. Normal origin of the right external carotid artery (ECA). LEFT CAROTID ARTERIES: Normal left common carotid artery (CCA). Normal left common carotid bulb. There is mild atherosclerotic plaque formation of the origin of the left internal carotid artery with less than 50% cross sectional diameter stenosis. Normal visualized cervical portion of the left internal carotid artery. Normal origin of the left external carotid artery (ECA). VERTEBRAL ARTERIES: There is enhancement within the bilateral vertebral arteries with a small left vertebral artery, and a dominant right vertebral artery. CT/STROKE CTA Head AND Neck W/Con IMPRESSION: Plaque formation at the origin of the left and right internal carotid arteries causing less than 50% stenosis. Stable study. N.B. : The above Results were Read Back by Yousif Elena MD to David Best and understanding confirmed on 10/07/2023 13:09:24 (ET). Electronically Signed: Yousif Elena MD at 13:10 EST ,
--- NOTE | 2023-10-07 12:37 | EKG12_ITS ---
Test Reason : STROKE Blood Pressure : / mmHG Vent. Rate : 069 BPM Atrial Rate : 069 BPM P-R Int : 156 ms QRS Dur : 116 ms QT Int : 482 ms P-R-T Axes : 066 098 072 degrees QTc Int : 516 ms Atrial-sensed ventricular-paced rhythm Biventricular pacemaker detected Abnormal ECG Confirmed by MOY MORENO, ALEXANDER ([id number]), development editor VILMA DAVIDSON ([id number]) on 10/13/2023 11:57:48 AM Referred By: Confirmed By:ALEXANDER WINTER MD
--- NOTE | 2023-10-07 12:37 | RAD_ITS ---
STUDY: X-RAY CHEST REASON FOR EXAM: Female, 68 years old. Neuro deficit, acute, stroke suspected TECHNIQUE: Single AP portable view of the chest. COMPARISON: Comparison is made with prior study dated September 28, 2023. FINDINGS: EKG electrodes are seen. The lungs are clear and expanded. There is no demonstrated pleural abnormality. Normal size heart. A left-sided dual-chamber pacemaker is seen. Normal mediastinum and alex. Normal visualized pulmonary arteries. Normal visualized aortic arch and descending thoracic aorta. Normal visualized thoracic spine. Normal visualized ribs, clavicles, and shoulders. There is no demonstrated abnormality of the visualized soft tissue structures of the upper abdomen. RAD/Chest 1 View IMPRESSION: Normal x-ray examination of the chest. Electronically Signed: Yousif Elena MD at 14:14 EST ,
[2023-10-07 12:53] LABS: Absolute Lymphocyte Count 3.02 X10^3/uL (0.83-4.51); Absolute Neutrophil Count 2.7 X10^3/uL (2.0-7.7); Basophil# 0.04 X10^3/uL; Basophil% 0.6 % (0-1); Eosinophil# 0.06 X10^3/uL; Eosinophils% 0.9 % (0-5); Hematocrit 37.8 % (37-47); Lymphocyte # 3.02 X10^3/ul (0.83-4.51); Lymphocyte % 47.6 % (19-41); Mean Corp Hgb Conc 31.7 g/dL (32-36); Mean Corpuscular Hgb 30.7 pg (27.0-32.0); Mean Corpuscular Volume 96.7 fL (81-99); Mean Platelet Vol. 11.7 fl (6.2-12.0); Monocyte# 0.57 X10^3/uL; NRBC Flagged by Analyzer 0 % (0-5); Neutrophil # 2.65 X10^3/uL (2.7-7.7); Neutrophil % 41.7 % (47-70); Platelet Count 153 K/mm3 (150-450); RBC Distribution Width CV 13.6 % (11.6-14.6); RBC Distribution Width SD 48.8 fl (35.1-43.9); Red Blood Count 3.91 M/mm3 (4.2-5.4); White Blood Count 6.4 K/mm3 (4.4-11.0)
--- NOTE | 2023-10-07 12:58 | ED.VIS.STROK ---
HPI History of Present Illness Chief Complaint: Stroke Alert Informant: patient, spouse/S.O. and SNF Narrative Narrative: Brought down from TCU initially seen in the hallway as a stroke alert starting 15 minutes prior to arrival at 12:15 PM. Patient reports right-sided weakness. History of stroke in the past. She was recently seen this past Wednesday for stroke work-up with similar presentation. Initial evaluation in pending sale to [facility] had right arm drift, right leg drift hitting the bed. Patient on aspirin and Plavix. She is at TCU for recovery. After patient being sent for CT head and angiogram return to room for reevaluation discussion. 2008 similar presentation with large stroke with residual right leg spasticity that improved. Per spouse symptoms return this past Wednesday. Things were resolving. Today symptoms returned again. He states exact same symptoms from 2008 and from Wednesday. She does have defibrillator, reporting from cardiomyopathy per spouse. Evaluation of her MRI on her last visit no new infarcts, she has a remote left MCA infarct. Prior similar symptoms: Yes PFSH PFSH Medical History (Updated 10/07/23 @ 16:[address] David Best, DO) Anxiety and depression AV node dysfunction Cardiac resynchronization therapy defibrillator (IMPORT SPECIALIST-D) in place Cerebral palsy Congestive heart failure (CHF) Coronary artery disease Diabetes mellitus Former smoker Heart failure with reduced ejection fraction High cholesterol Hyperlipidemia Hypertension ICD (implantable cardioverter-defibrillator) in place Insomnia Ischemic cardiomyopathy Myocarditis Pacemaker PFO (patent foramen ovale) Presence of biventricular implantable cardioverter-defibrillator Restless legs Ulcer Home Medications citalopram 20 mg tablet 20 mg PO QHS depression 11/18/14 [History Last Taken 10/06/23] clonazepam 1 mg tablet 1 mg PO QHS anxiety 11/18/14 [History Last Taken 10/06/23] metformin 500 mg tablet 500 mg PO DAILY diabetes 11/18/14 [History Last Taken 10/07/23] multivitamin with folic acid 400 mcg tablet (Thera) 1 tab PO DAILY vitamin 11/18/14 [History Last Taken 10/07/23] trazodone 50 mg tablet 50 mg PO DAILY PRN Anxiety 11/18/14 [History Last Taken 10/06/23] clopidogrel 75 mg tablet 1 tab PO QHS anti platelet 05/18/16 [History Last Taken 10/06/23] empagliflozin 10 mg tablet (Jardiance) 10 mg PO DAILY diabetes 09/28/23 [History Last Taken 10/07/23] metoprolol succinate 25 mg tablet,extended release 24 hr 12.5 mg PO DAILY blood pressure 09/28/23 [History Last Taken 10/07/23] pantoprazole 40 mg tablet,delayed release 40 mg PO BID stomach acid 09/28/23 [History Last Taken 10/07/23] sacubitril-valsartan 0.5 tab PO BID HTN 09/28/23 [History Last Taken 10/07/23] cholecalciferol (vitamin D3) 25 mcg (1,000 unit) tablet 50 mcg (2 x 25 mcg (1,000 unit)) PO QHS supplement #0 tabs 09/30/23 [Rx Last Taken 10/06/23] aspirin 81 mg tablet,delayed release 81 mg PO DAILY heart 10/01/23 [History Last Taken 10/07/23] atorvastatin 40 mg tablet 40 mg PO QHS CHOLESTEROL 10/07/23 [History Last Taken 10/06/23] baclofen 10 mg tablet 10 mg PO BID MUSCLE SPASMS 10/07/23 [History Last Taken 10/07/23] enoxaparin 40 mg/0.4 mL subcutaneous syringe 40 mg subcut 0600 BLOOD THINNER 10/07/23 [History Last Taken 10/07/23] spironolactone 25 mg tablet 12.5 mg PO MOWEFR FLUID 10/07/23 [History Last Taken 10/06/23] Allergy/AdvReac Type Severity Reaction Status Date / Time No Known Allergies Allergy Verified 10/07/23 12:48 Family History (Updated 10/07/23 @ 14:[address] Jaci Greco MD) Father Heart disease Mother Anxiety and depression Suicide and self-inflicted injury from suicide age 52. Surgical History (Updated 10/07/23 @ 13:[address] Jaci Greco MD) History of cardiac defibrillator placement History of cholecystectomy History of coronary artery stent placement History of skin surgery S/P colon polypectomy Social History (Updated 10/07/23 @ 14:[address] Jaci Greco MD) household members: spouse Smoking Status: Former smoker how long ago did patient quit smokin-1.5 ppd from teen until quit in 2008. alcohol intake: never substance use type: does not use ROS ROS ED Constitutional Constitutional ED: Denies chills, fever(s) or sweats Eyes Eyes: Denies change in vision ENT ENT ED: Denies dysphagia or sore throat Cardiovascular Cardiovascular: Denies chest pain, leg edema, palpitations or racing heartbeat Respiratory/Chest Respiratory/Chest: Denies cough, dyspnea or dyspnea on exertion Gastrointestinal Gastrointestinal: Denies abdominal pain, diarrhea, nausea or vomiting Genitourinary Genitourinary ED: Denies dysuria, hematuria or urinary frequency Musculoskeletal Musculoskeletal: Denies back pain, extremity pain or neck pain Integumentary Denies rash or wounds Neurologic Neurologic: Reports paresthesias and weakness; Denies headache(s) EXAM Physical Exam Const Vital Signs: 10/07/23 12:35 10/07/23 12:46 10/07/23 12:50 Temperature 97.8 F Temperature Source Temporal Pulse Rate 46 L 46 L Respiratory Rate 16 16 Blood Pressure 140/87 H 140/87 H Blood Pressure Mean 104 104 Pulse Ox 94 Oxygen Delivery Method Room Air Room Air Room Air 10/07/23 12:56 10/07/23 13:07 10/07/23 13:30 Temperature Temperature Source Pulse Rate 85 69 63 Respiratory Rate 18 15 28 H Blood Pressure 157/79 H 126/98 H 126/98 H Blood Pressure Mean 105 107 107 Pulse Ox 96 95 96 Oxygen Delivery Method Room Air Room Air Room Air Positive well nourished and well developed General Appearance ED: well developed and NAD HEENT Reports moist mucous membranes normocephalic and atraumatic Eyes PERRL, EOMs intact bilaterally and conjunctivae normal General Eye ED: Yes normal appearance of both eyes Neck no lymphadenopathy and supple General: Negative for tenderness Chest Wall Chest: Negative for tenderness Resp normal respiratory effort and normal air movement Effort and Inspection: symmetric chest movement; Negative for respiratory distress Cardio regular rate, regular rhythm and no murmurs Peripheral Pulses: pulses 2+ throughout GI normal to inspection, nondistended, normoactive bowel sounds and non-tender Palpation: Negative for guarding or rebound tenderness present Back/Spine no CVA tenderness and no thoracic nor lumbar tenderness Extremity normal to inspection General Extremety ED: Negative for edema or tenderness General Extremity: Negative for edema Neuro oriented x3 Neuro Narrative: NIH of 5 with reevaluation in the room. Right arm drift, right leg drift hitting the bed. There is mild paresthesia right lower extremity. There is dysarthria, Sensorium / Orientation: awake and alert Skin no rashes or lesions noted and no wounds NIHSS NIHSS Initial: 1a Level of Consciousness: 0 1b LOC Questions (Score 2 if aphasic/stupor): 0 1c LOC Commands (Only score 1st attempt): 0 2 Best Gaze (If aphasic, use reflexive mvmts.): 0 3 Visual: 0 4 Facial Palsy: 0 5 Motor Arm Right (UN = amputation/fusion): 1 5 Motor Arm Left: 0 6 Motor Leg Right: 2 6 Motor Leg Left: 0 7 Limb ataxia (Only + if out of proportion): 0 8 Sensory (Aphasia/stupor=0 or 1, coma=2): 1 9 Best Language: 0 10 Dysarthria (mute, coma=2, intubated=UN): 1 11 Extinction and Inattention (only scored if +): 0 Total Score: 5 MDM MDM MDM Narrative Medical decision making narrative: Interventions / MDM: Differential diagnosis: CVA, seizure Diagnosis considered but do not suspect: N/A My EKG interpretation: Atrial sensed, ventricular paced rhythm at 69, no ST changes. Imaging independently reviewed and interpreted by myself: CT brain: No intracranial hemorrhage, chronic findings. External documents reviewed: N/A Test considered but not ordered:N/A ED course: Patient sent straight to CT from the hallway due to a stroke symptoms. After return, rechecked NIH was a 5. CT brain discussion radiology chronic findings with no acute findings. No intracranial hemorrhage. 1315: Stroke neurologist Dr. Alarcon evaluated in the room, also available on the monitor for discussion. Discussed her recurrent symptoms and negative MRI recently. He is more concerned of spasticity and noted the right side issues. He recommended antispasmodics for which she is on baclofen twice a day, spouse has been trying to get this increase. He recommended medications, he recommended EEG as inpatient for evaluation of seizures. No TNK recommended. CT angiogram negative for any LVO. Bedside swallow being performed by nursing, order for baclofen. We will plan on admitting for EEG. I spoke with hospitalist Dr. Greco for admission. Re-evaluation: stable Disposition discussed with patient/family/significant other: Patient and spouse Case discussed with consulting clinician: Stroke neurologist, hospitalist This note was generated with Dragon dictation software. It may contain incorrect words, spelling, and punctuation that were not noted in checking the note before signing. Lab Data Attestation: I reviewed the patient's lab results. Labs: Laboratory Results - last 24 hr 10/07/23 12:37 WBC 6.4 RBC 3.91 L Hgb 12.0 Hct 37.8 MCV 96.7 MCH 30.7 MCHC 31.7 L RDW Std Deviation 48.8 H RDW Coeff of Edita 13.6 Plt Count 153 MPV 11.7 Immature Gran % (Auto) 0.200 Neut % (Auto) 41.7 L Lymph % (Auto) 47.6 H Grant % (Auto) 9.0 Eos % (Auto) 0.9 Baso % (Auto) 0.6 Absolute Neuts (auto) 2.7 Absolute Lymphs (auto) 3.02 Nucleated RBC % 0 PT 12.9 INR 1.0 APTT 28.7 Sodium 140 Potassium 4.4 Chloride 108 H Carbon Dioxide 26.0 Anion Gap 6 BUN 27 H Creatinine 1.17 H Estim Creat Clear Calc 44.64 Est GFR (MDRD) Af Amer 59 L Est GFR (MDRD) Non-Af 49 L BUN/Creatinine Ratio 23.1 H Glucose 137 H Calcium 9.2 Magnesium 2.5 Troponin I High Sens 8 Radiography Diagnostic Testing: Clinical Impression(s) from Imaging Studies Brain CT 10/07/23 12:37 IMPRESSION: Chronic involutional changes of the brain. Stable examination. N.B. : The above Results were Read Back by Yousif Elena MD to Dr Estephania DO, and understanding confirmed on 10/07/2023 12:53:48 (ET). Electronically Signed: Yousif Elena MD at 12:55 EST , ADDENDUM: 10/07/23 1302 IMPRESSION: Chronic involutional changes of the brain. Stable examination. N.B. : The above Results were Read Back by Yousif Elena MD to Dr Estephania DO, and understanding confirmed on 10/07/2023 12:53:48 (ET). Electronically Signed: Yousif Elena MD at 12:55 EST , Chest X-Ray 10/07/23 12:37 IMPRESSION: Normal x-ray examination of the chest. Electronically Signed: Yousif Elena MD at 14:14 EST , Head/Neck CTA 10/07/23 12:37 IMPRESSION: Plaque formation at the origin of the left and right internal carotid arteries causing less than 50% stenosis. Stable study. N.B. : The above Results were Read Back by Yousif Elena MD to David Best and understanding confirmed on 10/07/2023 13:09:24 (ET). Electronically Signed: Yousif Elena MD at 13:10 EST , ADDENDUM: 10/07/23 1317 IMPRESSION: Plaque formation at the origin of the left and right internal carotid arteries causing less than 50% stenosis. Stable study. N.B. : The above Results were Read Back by Yousif Elena MD to David Best and understanding confirmed on 10/07/2023 13:09:24 (ET). Electronically Signed: Yousif Elena MD at 13:10 EST , Critical Care Time Critical Care Time: Yes Critical care time (excluding procedures): 30-74 minutes, Discussing w/Patient &/or Family/Pathology Laboratory Aides Teacher, Discussing w/Consultants, Arranging Admission or Transfer, Performing Direct Patient Care at Bedside and - (30 minutes) Discharge Plan Dx/Rx/DC Orders Clinical Impression: Transient ischemic attack, Ischemic cardiomyopathy, PFO (patent foramen ovale) Disposition Disposition: Acute Care Hospital [facility] Discharge Date/Time: 10/07/23 15:06
[2023-10-07 13:04] LABS: Prothrombin Time (Protime)PT. 12.9 SECONDS (11.7-14.9)
[2023-10-07 13:05] LABS: Partial Thromboplast Time 28.7 Seconds (24.1-36.2)
[2023-10-07 13:07] LABS: Anion Gap 6 (5-15); BUN 27 mg/dL (7-18); BUN/Creat Ratio 23.1 RATIO (10-20); Calcium,Total 9.2 mg/dL (8.5-10.1); Chloride 108 mmol/L (98-107); Creatinine, Serum 1.17 mg/dL (0.55-1.02); EST Glomerular Filtration Rate 49 mL/min (>60); Est Glom Filt Rate - Afr Amer 59 mL/min (>60); Estimated Creatinine Clearance 44.64 ml/min; Glucose 137 mg/dL (74-106); Potassium 4.4 mmol/L (3.5-5.1); Sodium Level 140 mmol/L (136-145); Troponin-I HS 8 pg/mL (3.0-54.0)
[2023-10-07] MEDS: Baclofen 10 MG Tablet PO ×2 (13:35→20:55)
--- NOTE | 2023-10-07 13:55 | PCM.HP.STD ---
HPI - General General Date of Admission: 10/07/23 Date of Service: 10/07/23 Chief Complaint: Recurrent stroke like symptoms. 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 with questionable remote history of PFO per record, Diabetes mellitus type II, CAD s/p PCI, HFrEF/Hx AV fredi dysfunction/Ischemic Cardiomyopathy s/p AICD, RLS, recent admission 09/28/23-10/01/23 following admission for confusion/altered speech as well as dizziness and blurred vision with NIH stroke score 2 upon ED initial evaluation transition to TCU for rehab admitted for stroke work-up with unremarkable MRI maintain on aspirin and Plavix who now re-presents to the [facility] ED on 10/07/23 with history of stroke alert at approximately noon with dysarthria, mild right lower extremity paresthesias in addition to right-sided weakness with initial ED evaluation with right upper extremity and right lower extremity drift in addition to right lower extremity paresthesias and dysarthria concurrently with history of stroke in 2008 with a similar presentation with residual right leg spasticity although it supposedly improved and patient/ note not only of the similar to 2008 but similar to her recent presentation. Once patient reevaluated upon transition to ED room NIH stroke scale 5. NIHSS then by teleneurology was noted to be 3. Work-up in the ED included T97.8, heart rate initially 46 with most recent repeat 69, BP 140/87 with most recent repeat 126/98, respiratory rate 15, 95% on room air, CBC with WBC 6.4, hemoglobin 12, platelet 153 without marked shift, unremarkable coags, BMP with chloride 108, BUN/creatinine 27/1.17, glucose 137, troponin 8, CT the brain with chronic involutional changes, CTA head and neck with plaque formation at the origin of the left and right internal carotid arteries causing less than 50% stenosis similar to previous, EKG paced without acute evidence of ischemia. Stroke alert occurred and teleneurology was consulted with noted more concern for spasticity with recommendation for antispasmodics with increase of baclofen which is only twice daily with recommendation for also EEG to assure no seizure activity. In the ED patient administered baclofen 10 mg p.o. x1. PFSH Medical History (Updated 10/07/23 @ 14:[address] Jaci Greco MD) Anxiety and depression AV node dysfunction Cardiac resynchronization therapy defibrillator (LOSS PREVENTION LEAD-D) in place Cerebral palsy Coronary artery disease Diabetes mellitus Former smoker Heart failure with reduced ejection fraction High cholesterol Hyperlipidemia Hypertension ICD (implantable cardioverter-defibrillator) in place Insomnia Ischemic cardiomyopathy Myocarditis PFO (patent foramen ovale) Presence of biventricular implantable cardioverter-defibrillator Restless legs Ulcer Home Medications citalopram 20 mg tablet 20 mg PO QHS depression 11/18/14 [History Last Taken 10/06/23] clonazepam 1 mg tablet 1 mg PO QHS anxiety 11/18/14 [History Last Taken 10/06/23] metformin 500 mg tablet 500 mg PO DAILY diabetes 11/18/14 [History Last Taken 10/07/23] multivitamin with folic acid 400 mcg tablet (Thera) 1 tab PO DAILY vitamin 11/18/14 [History Last Taken 10/07/23] trazodone 50 mg tablet 50 mg PO DAILY PRN Anxiety 11/18/14 [History Last Taken 10/06/23] clopidogrel 75 mg tablet 1 tab PO QHS anti platelet 05/18/16 [History Last Taken 10/06/23] empagliflozin 10 mg tablet (Jardiance) 10 mg PO DAILY diabetes 09/28/23 [History Last Taken 10/07/23] metoprolol succinate 25 mg tablet,extended release 24 hr 12.5 mg PO DAILY blood pressure 09/28/23 [History Last Taken 10/07/23] pantoprazole 40 mg tablet,delayed release 40 mg PO BID stomach acid 09/28/23 [History Last Taken 10/07/23] sacubitril-valsartan 0.5 tab PO BID HTN 09/28/23 [History Last Taken 10/07/23] cholecalciferol (vitamin D3) 25 mcg (1,000 unit) tablet 50 mcg (2 x 25 mcg (1,000 unit)) PO QHS supplement #0 tabs 09/30/23 [Rx Last Taken 10/06/23] aspirin 81 mg tablet,delayed release 81 mg PO DAILY heart 10/01/23 [History Last Taken 10/07/23] atorvastatin 40 mg tablet 40 mg PO QHS CHOLESTEROL 10/07/23 [History Last Taken 10/06/23] baclofen 10 mg tablet 10 mg PO BID MUSCLE SPASMS 10/07/23 [History Last Taken 10/07/23] enoxaparin 40 mg/0.4 mL subcutaneous syringe 40 mg subcut 0600 BLOOD THINNER 10/07/23 [History Last Taken 10/07/23] spironolactone 25 mg tablet 12.5 mg PO MOWEFR FLUID 10/07/23 [History Last Taken 10/06/23] Allergy/AdvReac Type Severity Reaction Status Date / Time No Known Allergies Allergy Verified 10/07/23 12:48 Family History (Updated 10/07/23 @ 14:[address] Jaci Greco MD) Father Heart disease Mother Anxiety and depression Suicide and self-inflicted injury from suicide age 52. Surgical History (Updated 10/07/23 @ 13:[address] Jaci Greco MD) History of cardiac defibrillator placement History of cholecystectomy History of coronary artery stent placement History of skin surgery S/P colon polypectomy Social History (Updated 10/07/23 @ 14:[address] Jaci Greco MD) household members: spouse Smoking Status: Former smoker how long ago did patient quit smokin-1.5 ppd from teen until quit in 2008. alcohol intake: never substance use type: does not use ROS ROS Narrative Admission Review of Systems: CONSTITUTIONAL: No weight loss, fever, chills, + weakness or fatigue. HEENT: + Vision blurring. Eyes: No visual loss, double vision or yellow sclerae. Ears, Nose, Throat: No hearing loss, sneezing, congestion, runny nose or sore throat. SKIN: No rash or itching, lesions, wounds. CARDIOVASCULAR: No chest pain, chest pressure or chest discomfort, palpitations, edema, orthopnea, syncopal events. RESPIRATORY: No shortness of breath, cough or sputum, wheezing, hemoptysis. GASTROINTESTINAL: No anorexia, nausea, vomiting or diarrhea, abdominal pain, melena, BRBPR. GENITOURINARY: No dysuria, frequency, urgency or retention. NEUROLOGICAL: + Dizziness, right lower extremity paresthesias, dysarthria, right upper and lower extremity focal weakness. No headache, syncope, , change in bowel or bladder control, seizure. MUSCULOSKELETAL: + muscle, back pain, joint pain or stiffness. HEMATOLOGIC: No anemia. Easy bleeding/bruising. LYMPHATICS: No enlarged nodes. No history of splenectomy. PSYCHIATRIC: + history of depression or anxiety. ENDOCRINOLOGIC: No reports of sweating, cold or heat intolerance. No polyuria or polydipsia. ALLERGIES: No history of asthma, hives, eczema or rhinitis. Vital Signs Vital Signs Vital Signs: 10/07/23 12:35 10/07/23 12:46 10/07/23 12:50 Temperature 97.8 F Temperature Source Temporal Pulse Rate 46 L 46 L Respiratory Rate 16 16 Blood Pressure 140/87 H 140/87 H Blood Pressure Mean 104 104 Pulse Ox 94 Oxygen Delivery Method Room Air Room Air Room Air 10/07/23 12:56 10/07/23 13:07 10/07/23 13:30 Temperature Temperature Source Pulse Rate 85 69 63 Respiratory Rate 18 15 28 H Blood Pressure 157/79 H 126/98 H 126/98 H Blood Pressure Mean 105 107 107 Pulse Ox 96 95 96 Oxygen Delivery Method Room Air Room Air Room Air Weight Weight: 139 lb 5.314 oz Body Mass Index (BMI) 21.2 Physical Exam Narrative Physical Examination: General: Awake, alert, oriented to self, place and events, remains cooperative, seated upright in bed in no apparent distress, notes she has been waxing and waning as far as spasms, still notes mild vision blurring, had resolved, now after she took baclofen. Skin: Normal color, normal turgor, no icterus, no cyanosis except occasional staged ecchymoses. HEENT: AT/NC, EOMI, PERRLA, dry MM, likely lower frontal dentition, questionable eye nystagmus, no carotid bruits or JVD noted. Lungs: CTA bilaterally, moderate effort, mild decrease BL bases, no rales, ronchi or wheezing. Heart: Paced; no gallop, rub audible. Abdomen: Soft, NTTP, ND, normal BS, no HSM. Extremities: No cyanosis, clubbing, or edema, currently muscles and the extremities are nice and soft with no spasms currently noted. Neurological: Patient awake, alert, oriented as noted, cognitive function appears improved, currently seems intact; pupils equally reactive to light and accommodation, cranial nerves grossly intact however appearance of eye nystagmus, moving all 4 extremities, R sided upper and lower drift noted, some difficulty with R sided HTS/FTN, no marked paresthesias currently otherwise L appropriate, equivocal babinski. Psychiatric: Affect appears flat, no acute evidence of depressive or anxiety feelings but does have underlying history. Results Lab / Micro Data 10/07/23 12:37 10/07/23 12:37 Labs: Laboratory Results - last 24 hr 10/07/23 12:37: WBC 6.4, RBC 3.91 L, Hgb 12.0, Hct 37.8, MCV 96.7, MCH 30.7, MCHC 31.7 L, RDW Std Deviation 48.8 H, RDW Coeff of Edita 13.6, Plt Count 153, MPV 11.7, Immature Gran % (Auto) 0.200, Neut % (Auto) 41.7 L, Lymph % (Auto) 47.6 H, Nash % (Auto) 9.0, Eos % (Auto) 0.9, Baso % (Auto) 0.6, Absolute Neuts (auto) 2.7, Absolute Lymphs (auto) 3.02, Nucleated RBC % 0, PT 12.9, INR 1.0, APTT 28.7, Sodium 140, Potassium 4.4, Chloride 108 H, Carbon Dioxide 26.0, Anion Gap 6, BUN 27 H, Creatinine 1.17 H, Estim Creat Clear Calc 44.64, Est GFR (MDRD) Af Amer 59 L, Est GFR (MDRD) Non-Af 49 L, BUN/Creatinine Ratio 23.1 H, Glucose 137 H, Calcium 9.2, Troponin I High Sens [address] 10/07/23 12:37 IMPRESSION: Chronic involutional changes of the brain. Stable examination. N.B. : The above Results were Read Back by Yousif Elena MD to Dr Estephania DO, and understanding confirmed on 10/07/2023 12:53:48 (ET). Electronically Signed: Yousif Elena MD at 12:55 EST , ADDENDUM: 10/07/23 1302 IMPRESSION: Chronic involutional changes of the brain. Stable examination. N.B. : The above Results were Read Back by Yousif Elena MD to Dr Estephania DO, and understanding confirmed on 10/07/2023 12:53:48 (ET). Electronically Signed: Yousif Elena MD at 12:55 EST , Head/Neck CTA 10/07/23 12:37 IMPRESSION: Plaque formation at the origin of the left and right internal carotid arteries causing less than 50% stenosis. Stable study. N.B. : The above Results were Read Back by Yousif Elena MD to David Best and understanding confirmed on 10/07/2023 13:09:24 (ET). Electronically Signed: Yousif Elena MD at 13:10 EST , ADDENDUM: 10/07/23 1317 IMPRESSION: Plaque formation at the origin of the left and right internal carotid arteries causing less than 50% stenosis. Stable study. N.B. : The above Results were Read Back by Yousif Elena MD to David Best and understanding confirmed on 10/07/2023 13:09:24 (ET). 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 with questionable remote history of PFO per record, Diabetes mellitus type II, CAD s/p PCI, HFrEF/Hx AV fredi dysfunction/Ischemic Cardiomyopathy s/p AICD, RLS, recent admission 09/28/23-10/01/23 following admission for confusion/altered speech as well as dizziness and blurred vision with NIH stroke score 2 upon ED initial evaluation transition to TCU for rehab admitted for stroke work-up with unremarkable MRI maintain on aspirin and Plavix who now re-presents to the [facility] ED on 10/07/23 with history of stroke alert at approximately noon with dysarthria, mild right lower extremity paresthesias in addition to right-sided weakness. #1. Recurrent right-sided weakness concerning for Acute Spasticity versus Possible Seizure activity, Neurology low suspicion for recurrent Acute CVA with History remote L MCA w/ residual RLE reported spasticity complicated by reported CP history: Will admit to PCU, per neurology recommendation we will increase antispasmodic baclofen dosing and frequency, will maintain on fall and aspiration precautions, will continue NIH stroke scale assessments to be cautious pending repeat MRI brain however will obtain with and without to be thorough, will request EEG and will continue PT/OT/Speech/Nutrition evaluation. Again neurology with low suspicion for recurrent stroke but recommends MRI to be cautious therefore will maintain on permissive hypertensive regimen until MRI results noted, maintain on aspirin and Plavix as well as statin, recent assessment therefore will not repeat TSH (09/28/2023 TSH 2.94) but will obtain magnesium. We will also request hemoglobin A1c as this does not appear to have been performed recently. Once imaging and EEG is obtained would plan for repeat consultation with neurology at that time. Will have low dose PRN ativan for seizure activity. #2. Mild acute renal insufficiency with CKD stage II per GFR trending: Admission BUN/creatinine 27/1.17, per GFR trending patient appears to be CKD stage II primarily with GFR greater than 60 normally currently reduced, baseline creatinine 0.9-1 primarily, we will very judiciously hydrate given history HFrEF and repeat CMP in AM. #3. Questionable chart reported history of PFO: 09/28/2023 echocardiogram with no evidence of diastolic dysfunction, EF 55%, chart reported previous negative bubble study however records also mention history of PFO with last echo prior to this 05/19/2016 with EF 65%, stage I diastolic dysfunction, RVSP 20 mmHg with no appreciable change since 2007. #4. CAD: s/p PCI, will continue aspirin, Plavix, statin, temporary permissive hypertension as noted. #5. HFrEF/Hx AV fredi dysfunction/Ischemic Cardiomyopathy: s/p AICD, recent admission for similar strokelike symptoms with echocardiogram as noted above, will continue aspirin, Plavix, statin, temporally holding patient home spironolactone, Entresto, metoprolol for permissive hypertension with resumption once appropriate. Will judiciously hydrate given history. Recent AICD assessment 09/30/2023 without issue reported. #6. Diabetes mellitus type II: Hold oral home regimen, ADA diet, accu checks w/ ISS. Hemoglobin A1c requested as from records does not appear recently performed. #7. Anxiety and depression: We will continue patient home clonazepam with hold for sedation and citalopram. #8. Hypertension: We will maintain temporary permissive hypertension pending MRI of the brain given acute presentation with parent agents per stroke protocol, add back regimen once appropriate. #9. Hyperlipidemia: We will continue patient on statin therapy, defer FLP repeat given recent stroke work-up. #10. Restless leg syndrome: Not on any specific chronic regimen however does use clonazepam nightly and baclofen twice daily however these are for spasticity. #11. GERD: We will continue patient home PPI. #12. DVT prophylaxis: Lovenox. #13. CODE status: Patient HCPEVELIA is her who is present and living will is currently in place. Discussed CODE status at length including difference between FULL code, DNR-CCA and DNR-CC status. Following discussions about the differences in these status, requested Full Code status. Advanced Care Planning Face to Face Time: 16 minutes. Charges/Coding Visit Charges Inpatient E&M: 29369 Init Hosp L3 Procedures Hospitalists Procedures: 19427 Advncd Care Plan 30 Min
[2023-10-07 14:27] LABS: Magnesium 2.5 mg/dL (1.6-2.6)
[2023-10-07] MEDS: 0.9% Normal Saline (1000mL) 1,000 ML 75 ML IV (15:40)
[2023-10-07 16:55] LABS: Bedside Glucose 97 mg/dL (74-106)
[2023-10-07] MEDS: Clopidogrel Bisulfate 75 MG Tablet PO (20:55)
[2023-10-07] MEDS: Atorvastatin Calcium 40 MG Tablet PO (20:55)
[2023-10-07] MEDS: Pantoprazole Sodium 40 MG Tablet PO (20:55)
[2023-10-07] MEDS: clonazePAM 1 MG Tablet PO (20:55)
[2023-10-07] MEDS: Citalopram 20 MG Tablet PO (20:55)
[2023-10-07] MEDS: Insulin Lispro 100 UNIT/ML INSULN.PEN SC (21:01)
[2023-10-07 22:24] LABS: Bedside Glucose 187 mg/dL (74-106)
[2023-10-08] VITALS (14 sets, daily range): BP systolic 103–146; BP diastolic 51–93; PULSE 60–80; RESP 12–17; TEMP 36.6–37.1; O2SAT 92–98; BMI 21.0
[2023-10-08] MEDS: Enoxaparin 40 MG/0.4 ML Syringe SC (04:58)
[2023-10-08] MEDS: Baclofen 10 MG Tablet PO ×3 (04:58→22:11)
[2023-10-08 06:22] LABS: Absolute Lymphocyte Count 2.16 X10^3/uL (0.83-4.51); Basophil# 0.02 X10^3/uL; Basophil% 0.4 % (0-1); Eosinophil# 0.12 X10^3/uL; Eosinophils% 2.5 % (0-5); Hematocrit 34.8 % (37-47); Hemoglobin 11.1 g/dL (12.0-15.0); Lymphocyte # 2.16 X10^3/ul (0.83-4.51); Lymphocyte % 45.5 % (19-41); Mean Corp Hgb Conc 31.9 g/dL (32-36); Mean Corpuscular Hgb 30.2 pg (27.0-32.0); Mean Corpuscular Volume 94.8 fL (81-99); Mean Platelet Vol. 11.3 fl (6.2-12.0); Monocyte# 0.44 X10^3/uL; Monocyte% 9.3 % (0-10); NRBC Flagged by Analyzer 0 % (0-5); Neutrophil # 1.99 X10^3/uL (2.7-7.7); Neutrophil % 41.9 % (47-70); Platelet Count 142 K/mm3 (150-450); RBC Distribution Width CV 13.7 % (11.6-14.6); RBC Distribution Width SD 47.8 fl (35.1-43.9); Red Blood Count 3.67 M/mm3 (4.2-5.4); White Blood Count 4.8 K/mm3 (4.4-11.0)
[2023-10-08 06:38] LABS: Bedside Glucose 119 mg/dL (74-106)
[2023-10-08 06:55] LABS: AST(SGOT) 18 U/L (15-37); Alanine Aminotransfer ALT/SGPT 17 U/L (13-56); Albumin, Serum 3.3 g/dL (3.2-5.0); Alkaline Phosphatase 48 U/L (45-117); Anion Gap 4 (5-15); BUN 21 mg/dL (7-18); BUN/Creat Ratio 24.4 RATIO (10-20); Calcium,Total 8.7 mg/dL (8.5-10.1); Chloride 111 mmol/L (98-107); Creatinine, Serum 0.86 mg/dL (0.55-1.02); EST Glomerular Filtration Rate 69 mL/min (>60); Est Glom Filt Rate - Afr Amer 84 mL/min (>60); Estimated Creatinine Clearance 60.35 ml/min; Globulin 3.2 g/dL (2.2-4.2); Glucose 122 mg/dL (74-106); Potassium 4.2 mmol/L (3.5-5.1); Protein, Total 6.5 g/dL (6.4-8.2); Sodium Level 141 mmol/L (136-145)
--- NOTE | 2023-10-08 08:43 | NURSING ---
NIHSS late this am as EEG being done this am when due.
--- NOTE | 2023-10-08 08:44 | PN.HOSP_ITS ---
Reason for Visit Reason for Visit: Diagnoses Cerebral infarction, unspecified (10/07/23) Subjective Subjective Patient is a 68-year-old lady who was admitted to the regular hospital following episodes of transient confusion with blurred vision and dysarthria. Stroke alert was called underwent subsequent evaluation Objective Data Objective Data Vital Signs: Vital Signs Temp Pulse Resp BP Pulse Ox O2 Del Method 98.2 F 62 16 112/72 94 Room Air 10/08/23 08:36 10/08/23 08:36 10/08/23 08:36 10/08/23 08:36 10/08/23 08:36 10/08/23 08:36 Oxygen Delivery Method Room Air Weight: 62.8 kg Body Mass Index (BMI) 21.0 Intake & Output: Intake and Output for Last 24 Hours 10/06/23 10/07/23 10/08/23 23:59 23:59 23:59 Intake Total 200 / 200 1000 / 1000 Balance 200 / 200 1000 / 1000 Lab / Micro Data 10/08/23 05:45 10/08/23 05:45 Labs: Laboratory Results - last 24 hr 10/07/23 12:37: WBC 6.4, RBC 3.91 L, Hgb 12.0, Hct 37.8, MCV 96.7, MCH 30.7, MCHC 31.7 L, RDW Std Deviation 48.8 H, RDW Coeff of Edita 13.6, Plt Count 153, MPV 11.7, Immature Gran % (Auto) 0.200, Neut % (Auto) 41.7 L, Lymph % (Auto) 47.6 H, Irwin % (Auto) 9.0, Eos % (Auto) 0.9, Baso % (Auto) 0.6, Absolute Neuts (auto) 2.7, Absolute Lymphs (auto) 3.02, Nucleated RBC % 0, PT 12.9, INR 1.0, APTT 28.7, Sodium 140, Potassium 4.4, Chloride 108 H, Carbon Dioxide 26.0, Anion Gap 6, BUN 27 H, Creatinine 1.17 H, Estim Creat Clear Calc 44.64, Est GFR (MDRD) Af Amer 59 L, Est GFR (MDRD) Non-Af 49 L, BUN/Creatinine Ratio 23.1 H, Glucose 137 H, Calcium 9.2, Magnesium 2.5, Troponin I High Sens 8 10/07/23 16:36: POC Glucose 97 10/07/23 20:59: POC Glucose 187 H 10/08/23 05:45: WBC 4.8, RBC 3.67 L, Hgb 11.1 L, Hct 34.8 L, MCV 94.8, MCH 30.2, MCHC 31.9 L, RDW Std Deviation 47.8 H, RDW Coeff of Edita 13.7, Plt Count 142 L, MPV 11.3, Immature Gran % (Auto) 0.400, Neut % (Auto) 41.9 L, Lymph % (Auto) 45.5 H, Irwin % (Auto) 9.3, Eos % (Auto) 2.5, Baso % (Auto) 0.4, Absolute Neuts (auto) 2.0, Absolute Lymphs (auto) 2.16, Nucleated RBC % 0, Sodium 141, Potassium 4.2, Chloride 111 H, Carbon Dioxide 26.0, Anion Gap 4 L, BUN 21 H, Creatinine 0.86, Estim Creat Clear Calc 60.35, Est GFR (MDRD) Af Amer 84, Est GFR (MDRD) Non-Af 69, BUN/Creatinine Ratio 24.4 H, Glucose 122 H, Calcium 8.7, Total Bilirubin 0.30, AST 18, ALT 17, Alkaline Phosphatase 48, Total Protein 6.5, Albumin 3.3, Globulin 3.2, Albumin/Globulin Ratio 1.0 10/08/23 06:08: POC Glucose 119 H Radiography Diagnostic Testing: Radiology Impression Brain CT 10/07/23 12:37 IMPRESSION: Chronic involutional changes of the brain. Stable examination. N.B. : The above Results were Read Back by Yousif Elena MD to Dr Estephania DO, and understanding confirmed on 10/07/2023 12:53:48 (ET). Electronically Signed: Yousif Elena MD at 12:55 EST , ADDENDUM: 10/07/23 1302 IMPRESSION: Chronic involutional changes of the brain. Stable examination. N.B. : The above Results were Read Back by Yousif Elena MD to Dr Estephania DO, and understanding confirmed on 10/07/2023 12:53:48 (ET). Electronically Signed: Yousif Elena MD at 12:55 EST , Chest X-Ray 10/07/23 12:37 IMPRESSION: Normal x-ray examination of the chest. Electronically Signed: Yousif Elena MD at 14:14 EST , Head/Neck CTA 10/07/23 12:37 IMPRESSION: Plaque formation at the origin of the left and right internal carotid arteries causing less than 50% stenosis. Stable study. N.B. : The above Results were Read Back by Yousif Elena MD to David Best and understanding confirmed on 10/07/2023 13:09:24 (ET). Electronically Signed: Yousif Elena MD at 13:10 EST , ADDENDUM: 10/07/23 1317 IMPRESSION: Plaque formation at the origin of the left and right internal carotid arteries causing less than 50% stenosis. Stable study. N.B. : The above Results were Read Back by Yousif Elena MD to David Best and understanding confirmed on 10/07/2023 13:09:24 (ET). Electronically Signed: Yousif Elena MD at 13:10 EST , Physical Exam Narrative GENERAL: cooperative HEENT: Atraumatic; normocephalic EYES; Anicteric, Normal Conjunctiva NECK; supple, normal thyroid, RESPIRATORY: Diminished to auscultation CARDIOVASCULAR: Regular S1 S2, GI: soft, normoactive bowel sounds, : No Renal angle tenderness; EXTREMITIES: No edema, no clubbing, MUSCULOSKELETAL: no muscle wasting NEURO: Awake; right-sided hemiparesis SKIN: No Rash PSYCH; Flat affect Assessment & Plan Assessment/Plan (1) CVA (cerebral vascular accident): PLAN: Plan Patient is a 68-year-old lady who was admitted to the regular hospital following episodes of transient confusion with blurred vision and dysarthria. Stroke alert was called underwent subsequent evaluation 1. Recurrent right-sided weakness with spasticity ? Patient admitted to monitored bed currently being worked up for possible CVA. Was seen in consultation by neurology and EEG was recommended to be performed awaiting results. MRI was also ordered results pending 2. Remote CVA involving the left MCA ? With residual right-sided weakness. Patient remains on dual antiplatelet therapy in addition to statin therapy 3. Coronary artery disease ? Patient is on guideline directed medical therapy 4. Dyslipidemia -Patient is on statin therapy, continued at home dose 4. Hypertension - Blood pressure controlled, home medications continued with dose adjustment as needed 6. Chronic HFrEF/Hx ? Patient is on guideline directed medical therapy including spironolactone beta-blockers and Entresto 7. Ischemic Cardiomyopathy - s/p AICD, 8. Diabetes mellitus type II -patient's oral 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s held. Placed on long acting insulin, Accu-Cheks a.c. and at bedtime and covered with sliding scale insulin 9. Depression with anxiety ? Patient is on citalopram 10. GERD ? On PPI 11. DVT prophylaxis - On enoxaparin Time spent in the patient's overall evaluation,decision-making process, review of diagnostic data, adjustment of management, discussion with other providers, nursing nursing and ancillary staff involved in patient's care documentation, 50 Minutes Charges/Coding Visit Charges Inpatient E&M: 81517 [facility] L3
[2023-10-08] MEDS: Aspirin E.C. 81 MG Tablet PO (08:45)
[2023-10-08] MEDS: Pantoprazole Sodium 40 MG Tablet PO ×2 (08:46→22:12)
[2023-10-08 09:40] LABS: Hemoglobin A1c 6.8 % (3.8-5.6)
[2023-10-08] MEDS: Insulin Lispro 100 UNIT/ML INSULN.PEN SC (11:20)
[2023-10-08 12:07] LABS: Bedside Glucose 245 mg/dL (74-106)
--- NOTE | 2023-10-08 12:15 | MRI_ITS ---
STUDY: MRI BRAIN WITHOUT CONTRAST REASON FOR EXAM: Female, 68 years old. Spasms, vision changes TECHNIQUE: Multiplanar multisequence imaging of the brain was performed without the administration of intravenous contrast. COMPARISON: Noncontrast head CT 10/07/2023, brain MRI 09/30/2023 FINDINGS: The ventricles, cisterns, and sulci are prominent consistent with age-related volume loss. There is no restricted diffusion to suggest acute ischemia or infarction. Stable chronic left MCA distribution and right occipital CVA''s. No succeptibility artifict to suggest intracranial hemorrhage or mineralization. Major intracranial signal voids are preserved. There is high T2/FLAIR signal seen in the periventricular deep white matter. There is no midline shift, mass effect, or extra axial fluid collections are seen. No CP angle or IAC mass is seen. The orbits are unremarkable. The sella turcica and craniovertebral junction are within normal limits. The visualized paranasal sinuses are clear. The mastoid air cells are clear. No abnormal postcontrast enhancement. MRI/Brain W/WO Contrast IMPRESSION: Chronic microvascular ischemic changes. No intracranial hemorrhage, acute infarct, or space occupying or enhancing lesion. Electronically Signed: Moisés Ortega MD at 18:21 EST ,
[2023-10-08 17:29] LABS: Bedside Glucose 130 mg/dL (74-106)
--- NOTE | 2023-10-08 17:42 | CASEMGMT ---
TANIA CM in to discuss DUONG form with patient. RN CM explained DUONG form, patient voiced understanding. Pt signed form and filed in chart. Pt provided with a copy of signed DUONG form. Patient had no further questions or concerns at this time.
[2023-10-08] MEDS: Citalopram 20 MG Tablet PO (22:10)
[2023-10-08] MEDS: Clopidogrel Bisulfate 75 MG Tablet PO (22:11)
[2023-10-08] MEDS: Atorvastatin Calcium 40 MG Tablet PO (22:11)
[2023-10-08] MEDS: clonazePAM 1 MG Tablet PO (22:21)
[2023-10-08] MEDS: traZODone 50 MG Tablet PO (22:22)
[2023-10-08 23:55] LABS: Bedside Glucose 124 mg/dL (74-106)
[2023-10-09 02:18] VITALS: BMI 20.9
[2023-10-09 02:46] VITALS: BMI 20.9
[2023-10-09 03:44] VITALS: BP 110/50; PULSE 61; RESP 15; TEMP 36.4; O2SAT 94
[2023-10-09] MEDS: Enoxaparin 40 MG/0.4 ML Syringe SC (06:24)
[2023-10-09] MEDS: Baclofen 10 MG Tablet PO ×3 (06:24→21:11)
[2023-10-09 07:12] LABS: Bedside Glucose 116 mg/dL (74-106)
--- NOTE | 2023-10-09 07:47 | CASEMGMT ---
Social Work Both Living Will and Healthcare POA are scanned into [employer], Cuate Jacobson is listed as Healthcare Power of Part Maker. MICTHEL Rowley
[2023-10-09 08:00] VITALS: O2SAT 93
[2023-10-09] MEDS: Pantoprazole Sodium 40 MG Tablet PO ×2 (09:07→21:11)
[2023-10-09] MEDS: Aspirin E.C. 81 MG Tablet PO (09:07)
[2023-10-09 09:08] VITALS: BP 130/88; PULSE 63; RESP 17; TEMP 36.6; O2SAT 96
--- NOTE | 2023-10-09 09:12 | PN.HOSP_ITS ---
Reason for Visit Reason for Visit: Diagnoses Cerebral infarction, unspecified (10/07/23) Subjective Subjective Patient's MRI was negative for acute CVA. EEG was ordered results pending Objective Data Objective Data Vital Signs: Vital Signs Temp Pulse Resp BP Pulse Ox O2 Del Method 97.9 F 63 17 130/88 H 96 Room Air 10/09/23 09:08 10/09/23 09:08 10/09/23 09:08 10/09/23 09:08 10/09/23 09:08 10/09/23 09:08 Oxygen Delivery Method Room Air Weight: 62.4 kg Body Mass Index (BMI) 20.9 Intake & Output: Intake and Output for Last 24 Hours 10/07/23 10/08/23 10/09/23 23:59 23:59 23:59 Intake Total 200 / 200 2019 2170 270 / 270 Balance 200 / 200 2019 270 / 270 Lab / Micro Data 10/08/23 05:45 10/08/23 05:45 Labs: Laboratory Results - last 24 hr 10/08/23 05:45: Hemoglobin A1c 6.8 H 10/08/23 11:19: POC Glucose 245 H 10/08/23 16:34: POC Glucose 130 H 10/08/23 22:15: POC Glucose 124 H 10/09/23 06:29: POC Glucose 116 H Radiography Diagnostic Testing: Radiology Impression Brain MRI 10/08/23 12:15 IMPRESSION: Chronic microvascular ischemic changes. No intracranial hemorrhage, acute infarct, or space occupying or enhancing lesion. Electronically Signed: Moisés Ortega MD at 18:21 EST , Physical Exam Narrative GENERAL: cooperative HEENT: Atraumatic; normocephalic EYES; Anicteric, Normal Conjunctiva NECK; supple, normal thyroid, RESPIRATORY: Diminished to auscultation CARDIOVASCULAR: Regular S1 S2, GI: soft, normoactive bowel sounds, : No Renal angle tenderness; EXTREMITIES: No edema, no clubbing, MUSCULOSKELETAL: no muscle wasting NEURO: Awake; right-sided hemiparesis SKIN: No Rash PSYCH; Flat affect Assessment & Plan Assessment/Plan (1) CVA (cerebral vascular accident): PLAN: Plan Patient is a 68-year-old lady who was admitted to the regular hospital following episodes of transient confusion with blurred vision and dysarthria. Stroke alert was called underwent subsequent evaluation 1. Recurrent right-sided weakness with spasticity ? Patient admitted to monitored bed currently being worked up for possible CVA. Was seen in consultation by neurology and EEG was recommended to be performed awaiting results. MRI was also ordered results pending ? 10/09/2023;Patient's MRI was negative for acute CVA. EEG was ordered results pending 2. Remote CVA involving the left MCA ? With residual right-sided weakness. Patient remains on dual antiplatelet th erapy in addition to statin therapy 3. Coronary artery disease ? Patient is on guideline directed medical therapy 4. Dyslipidemia -Patient is on statin therapy, continued at home dose 4. Hypertension - Blood pressure controlled, home medications continued with dose adjustment as needed 6. Chronic HFrEF/Hx ? Patient is on guideline directed medical therapy including spironolactone beta-blockers and Entresto 7. Ischemic Cardiomyopathy - s/p AICD, 8. Diabetes mellitus type II -patient's oral 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s held. Placed on long acting insulin, Accu-Cheks a.c. and at bedtime and covered with sliding scale insulin 9. Depression with anxiety ? Patient is on citalopram 10. GERD ? On PPI 11. DVT prophylaxis - On enoxaparin Time spent in the patient's overall evaluation,decision-making process, review of diagnostic data, adjustment of management, discussion with other providers, nursing nursing and ancillary staff involved in patient's care documentation, 35 Minutes Charges/Coding Visit Charges Inpatient E&M: 48119 Subs Hosp L2
--- NOTE | 2023-10-09 10:55 | CASEMGMT ---
Social Work SW spoke w/pt and in room in regard to discharge plan. Pt and confirm the plan is to return to TCU at discharge. New SNF list is not needed. SW explained we will need a new precert from insurance, both state understanding. Plan: Return to TCU. Pt will be here through the weekend however as a new precert will need to be started on Wednesday. MITCHEL Rowley
[2023-10-09 11:58] VITALS: BMI 20.9
[2023-10-09 12:00] VITALS: BMI 20.9
[2023-10-09] MEDS: Insulin Lispro 100 UNIT/ML INSULN.PEN SC ×2 (12:14→21:11)
[2023-10-09 12:51] LABS: Bedside Glucose 208 mg/dL (74-106)
[2023-10-09 15:00] VITALS: BP 98/76; PULSE 65; RESP 17; TEMP 36.8; O2SAT 95
[2023-10-09 18:19] LABS: Bedside Glucose 107 mg/dL (74-106)
[2023-10-09 21:00] VITALS: BP 138/57; PULSE 61; RESP 18; TEMP 36.1; O2SAT 96
[2023-10-09] MEDS: Citalopram 20 MG Tablet PO (21:11)
[2023-10-09] MEDS: Atorvastatin Calcium 40 MG Tablet PO (21:11)
[2023-10-09] MEDS: clonazePAM 1 MG Tablet PO (21:11)
[2023-10-09] MEDS: Clopidogrel Bisulfate 75 MG Tablet PO (21:11)
[2023-10-09] MEDS: traZODone 50 MG Tablet PO (21:16)
[2023-10-09 21:41] LABS: Bedside Glucose 181 mg/dL (74-106)
[2023-10-10 00:10] VITALS: BMI 20.9
[2023-10-10 03:50] VITALS: BP 121/67; PULSE 66; RESP 16; TEMP 36.4; O2SAT 95
[2023-10-10 06:00] VITALS: BMI 20.7
[2023-10-10] MEDS: Enoxaparin 40 MG/0.4 ML Syringe SC (06:22)
[2023-10-10] MEDS: Baclofen 10 MG Tablet PO ×3 (06:22→21:02)
[2023-10-10 06:50] LABS: Bedside Glucose 126 mg/dL (74-106)
--- NOTE | 2023-10-10 07:54 | PCM.PN.HOSP ---
Reason for Visit Reason for Visit: Diagnoses Cerebral infarction, unspecified (10/07/23) Subjective Subjective Patient EEG demonstrated mild diffuse encephalopathy with no epileptiform discharges, seizure pattern or lateralizing signs. Patient continues to experience intermittent spasms involving the upper extremities. Awaiting insurance precertification prior to transfer back to the transitional care unit Objective Data Objective Data Vital Signs: Vital Signs Temp Pulse Resp BP Pulse Ox O2 Del Method 97.5 F L 66 16 121/67 H 95 Room Air 10/10/23 03:50 10/10/23 03:50 10/10/23 03:50 10/10/23 03:50 10/10/23 03:50 10/10/23 03:55 Oxygen Delivery Method Room Air Weight: 62 kg Body Mass Index (BMI) 20.7 Intake & Output: Intake and Output for Last 24 Hours 10/08/23 10/09/23 10/10/23 23:59 23:59 23:59 Intake Total 2019 1080 / 1080 Balance 2019 1080 / 1080 Lab / Micro Data 10/08/23 05:45 10/08/23 05:45 Labs: Laboratory Results - last 24 hr 10/09/23 12:13: POC Glucose 208 H 10/09/23 17:57: POC Glucose 107 H 10/09/23 21:08: POC Glucose 181 H 10/10/23 06:26: POC Glucose 126 H Physical Exam Narrative GENERAL: cooperative HEENT: Atraumatic; normocephalic EYES; Anicteric, Normal Conjunctiva NECK; supple, normal thyroid, RESPIRATORY: Diminished to auscultation CARDIOVASCULAR: Regular S1 S2, GI: soft, normoactive bowel sounds, : No Renal angle tenderness; EXTREMITIES: No edema, no clubbing, MUSCULOSKELETAL: no muscle wasting NEURO: Awake; right-sided hemiparesis SKIN: No Rash PSYCH; Flat affect Assessment & Plan Assessment/Plan (1) CVA (cerebral vascular accident): PLAN: Plan Patient is a 68-year-old lady who was admitted to the regular hospital following episodes of transient confusion with blurred vision and dysarthria. Stroke alert was called underwent subsequent evaluation 1. Recurrent right-sided weakness with spasticity ? Patient admitted to monitored bed currently being worked up for possible CVA. Was seen in consultation by neurology and EEG was recommended to be performed awaiting results. MRI was also ordered results pending ? 10/09/2023;Patient's MRI was negative for acute CVA. EEG was ordered results pending ? 10/10/2023;Patient EEG demonstrated mild diffuse encephalopathy with no epileptiform discharges, seizure pattern or lateralizing signs. Patient continues to experience intermittent spasms involving the upper extremities. Awaiting insurance precertification prior to transfer back to the transitional care unit 2. Remote CVA involving the left MCA ? With residual right-sided weakness. Patient remains on dual antiplatelet therapy in addition to statin therapy 3. Coronary artery disease ? Patient is on guideline directed medical therapy 4. Dyslipidemia -Patient is on statin therapy, continued at home dose 4. Hypertension - Blood pressure controlled, home medications continued with dose adjustment as needed 6. Chronic HFrEF/Hx ? Patient is on guideline directed medical therapy including spironolactone beta-blockers and Entresto 7. Ischemic Cardiomyopathy - s/p AICD, 8. Diabetes mellitus type II -patient's oral 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s held. Placed on long acting insulin, Accu-Cheks a.c. and at bedtime and covered with sliding scale insulin 9. Depression with anxiety ? Patient is on citalopram 10. GERD ? On PPI 11. DVT prophylaxis - On enoxaparin Time spent in the patient's overall evaluation,decision-making process, review of diagnostic data, adjustment of management, discussion with other providers, nursing nursing and ancillary staff involved in patient's care documentation, 35 Minutes Charges/Coding Visit Charges Inpatient E&M: 83763 [facility] Hosp L2
[2023-10-10 08:20] VITALS: BP 99/49; PULSE 74; RESP 15; TEMP 36.3; O2SAT 96
[2023-10-10 08:23] VITALS: O2SAT 95
[2023-10-10] MEDS: Aspirin E.C. 81 MG Tablet PO (08:27)
[2023-10-10] MEDS: Pantoprazole Sodium 40 MG Tablet PO ×2 (08:27→21:01)
[2023-10-10] MEDS: 0.9% Saline Lock 10 ML Syringe IV (08:28)
[2023-10-10 08:32] VITALS: BMI 20.7
[2023-10-10] MEDS: Insulin Lispro 100 UNIT/ML INSULN.PEN SC (11:36)
[2023-10-10 11:55] LABS: Bedside Glucose 211 mg/dL (74-106)
[2023-10-10 14:20] VITALS: BP 122/60; PULSE 65; RESP 15; TEMP 36.9; O2SAT 96
[2023-10-10 17:03] LABS: Bedside Glucose 131 mg/dL (74-106)
[2023-10-10 20:57] VITALS: BP 133/67; PULSE 61; RESP 18; TEMP 36.6; O2SAT 95
[2023-10-10] MEDS: Clopidogrel Bisulfate 75 MG Tablet PO (21:01)
[2023-10-10] MEDS: Atorvastatin Calcium 40 MG Tablet PO (21:01)
[2023-10-10] MEDS: Citalopram 20 MG Tablet PO (21:01)
[2023-10-10] MEDS: traZODone 50 MG Tablet PO (21:01)
[2023-10-10] MEDS: clonazePAM 1 MG Tablet PO (21:01)
[2023-10-10 21:06] VITALS: BMI 20.7
[2023-10-10 21:55] LABS: Bedside Glucose 142 mg/dL (74-106)
[2023-10-11 03:00] VITALS: BP 132/99; PULSE 60; RESP 16; TEMP 36.2; O2SAT 97
[2023-10-11 04:46] VITALS: BMI 21.2
[2023-10-11 04:59] LABS: Absolute Lymphocyte Count 2.84 X10^3/uL (0.83-4.51); Absolute Neutrophil Count 1.7 X10^3/uL (2.0-7.7); Basophil# 0.04 X10^3/uL; Basophil% 0.8 % (0-1); Eosinophil# 0.13 X10^3/uL; Eosinophils% 2.5 % (0-5); Hemoglobin 11.5 g/dL (12.0-15.0); Lymphocyte # 2.84 X10^3/ul (0.83-4.51); Lymphocyte % 54.9 % (19-41); Mean Corp Hgb Conc 31.9 g/dL (32-36); Mean Corpuscular Hgb 30.7 pg (27.0-32.0); Mean Platelet Vol. 10.8 fl (6.2-12.0); Monocyte# 0.43 X10^3/uL; Monocyte% 8.3 % (0-10); NRBC Flagged by Analyzer 0 % (0-5); Neutrophil # 1.73 X10^3/uL (2.7-7.7); Neutrophil % 33.5 % (47-70); Platelet Count 144 K/mm3 (150-450); RBC Distribution Width CV 13.7 % (11.6-14.6); RBC Distribution Width SD 48.7 fl (35.1-43.9); Red Blood Count 3.75 M/mm3 (4.2-5.4); White Blood Count 5.2 K/mm3 (4.4-11.0)
[2023-10-11 05:50] LABS: Anion Gap 6 (5-15); BUN 25 mg/dL (7-18); BUN/Creat Ratio 27.2 RATIO (10-20); Calcium,Total 8.7 mg/dL (8.5-10.1); Chloride 111 mmol/L (98-107); Creatinine, Serum 0.92 mg/dL (0.55-1.02); EST Glomerular Filtration Rate 64 mL/min (>60); Est Glom Filt Rate - Afr Amer 78 mL/min (>60); Estimated Creatinine Clearance 56.77 ml/min; Glucose 123 mg/dL (74-106); Magnesium 2.2 mg/dL (1.6-2.6); Phosphorus 3.6 mg/dL (2.5-4.9); Sodium Level 142 mmol/L (136-145)
[2023-10-11] MEDS: Baclofen 10 MG Tablet PO ×3 (06:19→21:19)
[2023-10-11] MEDS: Enoxaparin 40 MG/0.4 ML Syringe SC (06:19)
[2023-10-11 07:18] LABS: Bedside Glucose 130 mg/dL (74-106)
--- NOTE | 2023-10-11 10:01 | PCM.PN.HOSP ---
Subjective Subjective Doing well, no issues overnight. Feels better than when she came in. Objective Data Objective Data Vital Signs: Vital Signs Temp Pulse Resp BP Pulse Ox O2 Del Method 97.1 F L 60 16 132/99 H 97 Room Air 10/11/23 03:00 10/11/23 03:00 10/11/23 03:00 10/11/23 03:00 10/11/23 03:00 10/11/23 03:35 Oxygen Delivery Method Room Air Weight: 139 lb 5.314 oz Body Mass Index (BMI) 21.2 Intake & Output: Intake and Output for Last 24 Hours 10/10/23 10/11/23 10/12/23 03:59 03:59 03:59 Intake Total 930 / 930 400 / 400 Balance 930 / 930 400 / 400 Lab / Micro Data 10/11/23 04:33 10/11/23 04:33 Labs: Laboratory Results - last 24 hr 10/10/23 11:35: POC Glucose 211 H 10/10/23 16:43: POC Glucose 131 H 10/10/23 21:00: POC Glucose 142 H 10/11/23 04:33: WBC 5.2, RBC 3.75 L, Hgb 11.5 L, Hct 36.0 L, MCV 96.0, MCH 30.7, MCHC 31.9 L, RDW Std Deviation 48.7 H, RDW Coeff of Edita 13.7, Plt Count 144 L, MPV 10.8, Immature Gran % (Auto) 0.000, Neut % (Auto) 33.5 L, Lymph % (Auto) 54.9 H, Mcpherson % (Auto) 8.3, Eos % (Auto) 2.5, Baso % (Auto) 0.8, Absolute Neuts (auto) 1.7 L, Absolute Lymphs (auto) 2.84, Nucleated RBC % 0, Sodium 142, Potassium 4.0, Chloride 111 H, Carbon Dioxide 25.0, Anion Gap 6, BUN 25 H, Creatinine 0.92, Estim Creat Clear Calc 56.77, Est GFR (MDRD) Af Amer 78, Est GFR (MDRD) Non-Af 64, BUN/Creatinine Ratio 27.2 H, Glucose 123 H, Calcium 8.7, Phosphorus 3.6, Magnesium 2.2 10/11/23 06:22: POC Glucose 130 H Physical Exam Narrative General: Alert, Oriented x3, Cooperative, No apparent distress HEENT: Atraumatic, PERRLA, EOMI, Normocephalic Oral: Moist Mucosa Neck: Supple, No JVD Lungs: Diminished, normal air movement, No rhonchi, No wheeze, No rales Cardiovascular: Regular rate, Regular Rhythm, Normal S1, Normal S2, No murmurs Abdomen: Soft, Non Tender, Non-Distended, No Hepato-splenomegaly Extremities: No edema, Capillary Refill Less than 3 Seconds Skin: No rashes, No breakdown Musculoskeletal: No Tenderness to Palpation of Joints or Extremities Neurological: Moves all extremities, Sensory exam intact to light touch and pain Psych/Mental Status: Flat Assessment & Plan Assessment/Plan (1) CVA (cerebral vascular accident): PLAN: Plan 1. Recurrent right-sided weakness with spasticity ? Patient admitted to monitored bed currently being worked up for possible CVA. Was seen in consultation by neurology and EEG was recommended to be performed awaiting results. MRI was also ordered results pending ? 10/09/2023;Patient's MRI was negative for acute CVA. EEG was ordered results pending ? 10/10/2023;Patient EEG demonstrated mild diffuse encephalopathy with no epileptiform discharges, seizure pattern or lateralizing signs. Patient continues to experience intermittent spasms involving the upper extremities. Awaiting insurance precertification prior to transfer back to the transitional care unit ? 10/11/2023: Awaiting pre-CERT to return to TCU 2. Remote CVA involving the left MCA/CAD/HTN/HLD/chronic systolic CHF ? With residual right-sided weakness. Patient remains on dual antiplatelet therapy in addition to statin therapy ? Continue with blood pressure medications ? We will monitor and make adjustments as necessary 3. Diabetes mellitus type II -patient's oral 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s held. Placed on long acting insulin, Accu-Cheks a.c. and at bedtime and covered with sliding scale insulin 4 Depression with anxiety ? Patient is on citalopram 5. GERD ? On PPI DVT: Lovenox Charges/Coding Visit Charges Inpatient E&M: 09614 Subs Hosp L2
[2023-10-11 10:40] VITALS: BP 131/69; PULSE 60; RESP 12; TEMP 36.8; O2SAT 99
[2023-10-11 10:45] VITALS: BMI 21.2
[2023-10-11] MEDS: Pantoprazole Sodium 40 MG Tablet PO ×2 (10:50→21:19)
[2023-10-11] MEDS: Aspirin E.C. 81 MG Tablet PO (10:50)
[2023-10-11 11:27] LABS: Bedside Glucose 109 mg/dL (74-106)
--- NOTE | 2023-10-11 15:22 | CASEMGMT ---
ROXANA spoke with [facility] in TCU and patient may get denied. ROXANA spoke with patient and her . SW let them know this information. ROXANA then explained that home health or outpatient care can be set up also. ROXANA told them ROXANA will let them know when SW has a final answer from insurance. Tasia Sewell FIELD RECORDER VINCENT
[2023-10-11 15:38] VITALS: BP 122/47; PULSE 60; RESP 12; TEMP 36.6; O2SAT 97
[2023-10-11 17:16] LABS: Bedside Glucose 130 mg/dL (74-106)
[2023-10-11] MEDS: Citalopram 20 MG Tablet PO (21:19)
[2023-10-11] MEDS: Clopidogrel Bisulfate 75 MG Tablet PO (21:19)
[2023-10-11] MEDS: clonazePAM 1 MG Tablet PO (21:19)
[2023-10-11] MEDS: Insulin Lispro 100 UNIT/ML INSULN.PEN SC (21:19)
[2023-10-11] MEDS: Atorvastatin Calcium 40 MG Tablet PO (21:19)
[2023-10-11 21:22] VITALS: BP 141/72; PULSE 63; RESP 16; TEMP 36.3; O2SAT 96
[2023-10-11 22:07] LABS: Bedside Glucose 201 mg/dL (74-106)
[2023-10-11 22:16] VITALS: BMI 21.2
[2023-10-12 03:03] VITALS: BP 124/60; PULSE 59; RESP 16; TEMP 36.6; O2SAT 93
[2023-10-12 06:00] VITALS: BMI 21.1
[2023-10-12] MEDS: Enoxaparin 40 MG/0.4 ML Syringe SC (06:40)
[2023-10-12] MEDS: Baclofen 10 MG Tablet PO (06:40)
[2023-10-12 07:19] LABS: Bedside Glucose 120 mg/dL (74-106)
[2023-10-12 08:40] VITALS: BP 143/67; PULSE 60; RESP 14; TEMP 36.6; O2SAT 100
[2023-10-12] MEDS: Pantoprazole Sodium 40 MG Tablet PO (08:45)
[2023-10-12] MEDS: Aspirin E.C. 81 MG Tablet PO (08:45)
--- NOTE | 2023-10-12 11:24 | DCINST_ITS ---
Discharge Instructions Diet Discharge Diet: Low fat / Low cholesterol, 6 Cup Fluid Restriction and Carb Control Diet Activity Discharge Activity: Return to Normal Activity Dressing / Incision Call your doctor if you observe: Fever of 101 or Higher, Shortness of breath, Dizziness, Fainting spells, Swelling in the ankles, Chest pain and Increased palpitations (irregular heartbeat) Follow Up Care Test Results: Test results from this visit will be discussed in further detail at your follow- up appointment, if applicable. Discharge Plan Admission Admit Date/Time: 10/07/23 13:57 Attending Provider: Camacho Aguilar Primary Care Provider: Joo Campos Consulting Providers: Jaci Greco; Tony Mayer Instructions Additional Instructions / Restrictions: Obtain an outpatient referral for neurology by her PCP for further evaluation of the spasticity, your EEG and your MRI were unremarkable Discharge Orders/Prescriptions Prescriptions: Continued metformin 500 MG tablet 500 mg PO DAILY trazodone 50 MG tablet 50 mg PO DAILY PRN (Reason: Anxiety) clonazepam 1 MG tablet 1 mg PO QHS citalopram 20 MG tablet 20 mg PO QHS multivitamin with folic acid [Thera] 1 TABLET tablet 1 tab PO DAILY clopidogrel 75 MG tablet 1 tab PO QHS sacubitril-valsartan [Entresto] 0.5 tab PO BID Jardiance 10 mg tablet 10 mg PO DAILY metoprolol succinate 25 mg tablet extended release 24 hr 12.5 mg PO DAILY pantoprazole 40 MG tablet 40 mg PO BID cholecalciferol (vitamin D3) 25 mcg (1,000 unit) Tablet 50 mcg PO QHS Qty: 0 0RF aspirin 81 mg tablet,delayed release (DR/EC) 81 mg PO DAILY atorvastatin 40 mg tablet 40 mg PO QHS spironolactone 25 mg tablet 12.5 mg PO MOWEFR baclofen 10 mg tablet 10 mg PO BID enoxaparin 40 mg/0.4 mL syringe 40 mg subcut 0600 Referrals / Follow Up: Joo Campos DO [Primary Care Provider] - Within 1 Week Disposition Disposition (needs filled in before D/C Order can be placed): Home, Self Care
[2023-10-12] MEDS: Insulin Lispro 100 UNIT/ML INSULN.PEN SC (11:33)
--- NOTE | 2023-10-12 11:39 | PHA.DC.MR.R ---
Pharmacy [place] Med Reconciliation Pharmacy Service has performed discharge medication reconciliation for this patient. The patient's discharge medication list was reviewed for discrepancies and discrepancies were resolved. Medications at Discharge Home Medications citalopram 20 mg tablet 20 mg PO QHS depression 11/18/14 clonazepam 1 mg tablet 1 mg PO QHS anxiety 11/18/14 metformin 500 mg tablet 500 mg PO DAILY diabetes 11/18/14 multivitamin with folic acid 400 mcg tablet (Thera) 1 tab PO DAILY vitamin 11/18/14 trazodone 50 mg tablet 50 mg PO DAILY PRN Anxiety 11/18/14 clopidogrel 75 mg tablet 1 tab PO QHS anti platelet 05/18/16 empagliflozin 10 mg tablet (Jardiance) 10 mg PO DAILY diabetes 09/28/23 metoprolol succinate 25 mg tablet,extended release 24 hr 12.5 mg PO DAILY blood pressure 09/28/23 pantoprazole 40 mg tablet,delayed release 40 mg PO BID stomach acid 09/28/23 sacubitril-valsartan 0.5 tab PO BID HTN 09/28/23 cholecalciferol (vitamin D3) 25 mcg (1,000 unit) tablet 50 mcg (2 x 25 mcg (1,000 unit)) PO QHS supplement #0 tabs 09/30/23 aspirin 81 mg tablet,delayed release 81 mg PO DAILY heart 10/01/23 atorvastatin 40 mg tablet 40 mg PO QHS CHOLESTEROL 10/07/23 baclofen 10 mg tablet 10 mg PO BID MUSCLE SPASMS 10/07/23 enoxaparin 40 mg/0.4 mL subcutaneous syringe 40 mg subcut 0600 BLOOD THINNER 10/07/23 spironolactone 25 mg tablet 12.5 mg PO MOWEFR FLUID 10/07/23
--- NOTE | 2023-10-12 11:39 | CASEMGMT ---
Patient was denied by insurance to return to [facility] TCU. ROXANA notified patient and her . SW offered home health or outpatient therapy. Patient and her both declined either service. ROXANA notified physician and TANIA ALLEN. Plan: Home Tasia KAUR
[2023-10-12 11:57] LABS: Bedside Glucose 207 mg/dL (74-106)
[2023-10-12 13:31] VITALS: BMI 21.1
--- NOTE | 2023-10-12 14:53 | PCM.DC.SUM ---
Providers Date of Admission: 10/07/23 Primary Care Physician: Dr. Joo Campos DO Reason For Visit: SPASTICITY VS SEIZURE, LOW SUSP CVA Diagnosis Discharge Diagnosis (1) CVA (cerebral vascular accident): Status: Inactive Code(s): I63.9 - Cerebral infarction, unspecified Medications at Discharge Home Medications citalopram 20 mg tablet 20 mg PO QHS depression 11/18/14 clonazepam 1 mg tablet 1 mg PO QHS anxiety 11/18/14 metformin 500 mg tablet 500 mg PO DAILY diabetes 11/18/14 multivitamin with folic acid 400 mcg tablet (Thera) 1 tab PO DAILY vitamin 11/18/14 trazodone 50 mg tablet 50 mg PO DAILY PRN Anxiety 11/18/14 clopidogrel 75 mg tablet 1 tab PO QHS anti platelet 05/18/16 empagliflozin 10 mg tablet (Jardiance) 10 mg PO DAILY diabetes 09/28/23 metoprolol succinate 25 mg tablet,extended release 24 hr 12.5 mg PO DAILY blood pressure 09/28/23 pantoprazole 40 mg tablet,delayed release 40 mg PO BID stomach acid 09/28/23 sacubitril-valsartan 0.5 tab PO BID HTN 09/28/23 cholecalciferol (vitamin D3) 25 mcg (1,000 unit) tablet 50 mcg (2 x 25 mcg (1,000 unit)) PO QHS supplement #0 tabs 09/30/23 aspirin 81 mg tablet,delayed release 81 mg PO DAILY heart 10/01/23 atorvastatin 40 mg tablet 40 mg PO QHS CHOLESTEROL 10/07/23 baclofen 10 mg tablet 10 mg PO BID MUSCLE SPASMS 10/07/23 enoxaparin 40 mg/0.4 mL subcutaneous syringe 40 mg subcut 0600 BLOOD THINNER 10/07/23 spironolactone 25 mg tablet 12.5 mg PO MOWEFR FLUID 10/07/23 Hospital Course Operations None Procedures None Summary of Care Provided Minutes Spent on Discharge: 36 Hospital Course: Per HPI: The patient is a 68 y/o F w/ PMHx: reported CP history, CKD stage II per GFR trending, HTN, HLD, Anxiety and Depression/Chronic insomnia, GERD, 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 ED on 10/07/23 with history of stroke alert at approximately noon with dysarthria, mild right lower extremity paresthesias in addition to right-sided weakness with initial ED evaluation with right upper extremity and right lower extremity drift in addition to right lower extremity paresthesias and dysarthria concurrently with history of stroke in 2008 with a similar presentation with residual right leg spasticity although it supposedly improved and patient/ note not only of the similar to 2009 but similar to her recent presentation. Once patient reevaluated upon transition to ED room NIH stroke scale 5. NIHSS then by teleneurology was noted to be 3. Work-up in the ED included T97.8, heart rate initially 46 with most recent repeat 69, BP 140/87 with most recent repeat 126/98, respiratory rate 15, 95% on room air, CBC with WBC 6.4, hemoglobin 12, platelet 153 without marked shift, unremarkable coags, BMP with chloride 108, BUN/creatinine 27/1.17, glucose 137, troponin 8, CT the brain with chronic involutional changes, CTA head and neck with plaque formation at the origin of the left and right internal carotid arteries causing less than 50% stenosis similar to previous, EKG paced without acute evidence of ischemia. Stroke alert occurred and teleneurology was consulted with noted more concern for spasticity with recommendation for antispasmodics with increase of baclofen which is only twice daily with recommendation for also EEG to assure no seizure activity. In the ED patient administered baclofen 10 mg p.o. x1. Hospital Course: 1. Recurrent episodes of transient right-sided weakness with spasticity?68-year-old female who presented to the hospital in the beginning of the month and discharged to SNF presents back to the hospital with right-sided weakness and spasticity. MRI was negative and echo in the beginning of the month was unremarkable and it was not repeated during this admission. She is unlikely to be having TIAs or CVAs, EEG demonstrated some encephalopathy but otherwise no seizure-like activity. I discussed with her the plan for discharge today as she was denied SNF placement, she expressed understanding of the risk benefits of going home and wanted to go home today. I do recommend she follow-up with her PCP in 3 to 5 days and obtain an outpatient referral for neurology on discharge. 2. Remote CVA of the left MCA, coronary artery disease, hypertension, hyperlipidemia, chronic systolic CHF, type 2 diabetes, depression, anxiety, GERD are all chronic medical conditions which complicate her care. Her home medication continued where appropriate Physical Exam Narrative General: Alert, Oriented x3, Cooperative, No apparent distress HEENT: Atraumatic, PERRLA, EOMI, Normocephalic Oral: Moist Mucosa Neck: Supple, No JVD Lungs: Diminished, normal air movement, No rhonchi, No wheeze, No rales Cardiovascular: Regular rate, Regular Rhythm, Normal S1, Normal S2, No murmurs Abdomen: Soft, Non Tender, Non-Distended, No Hepato-splenomegaly Extremities: No edema, Capillary Refill Less than 3 Seconds Skin: No rashes, No breakdown Musculoskeletal: No Tenderness to Palpation of Joints or Extremities Neurological: Moves all extremities, Sensory exam intact to light touch and pain Psych/Mental Status: Normal affect Weight / BMI Weight Weight: 139 lb 1.787 oz Body Mass Index (BMI) 21.1 ABG / Lab / Microbiology Data 10/11/23 04:33 10/11/23 04:33 Laboratory: Laboratory Results - last 24 hr 10/11/23 16:52: POC Glucose 130 H 10/11/23 21:17: POC Glucose 201 H 10/12/23 06:39: POC Glucose 120 H 10/12/23 11:31: POC Glucose 207 H D/C Instructions Discharge Diet: Low fat / Low cholesterol, 6 Cup Fluid Restriction and Carb Control Diet Call your doctor if you observe: Fever of 101 or Higher, Shortness of breath, Dizziness, Fainting spells, Swelling in the ankles, Chest pain and Increased palpitations (irregular heartbeat) Meaningful Use Info Meaningful Use Diagnoses (Choose all that apply): None applicable Discharge Plan Admission Admit Date/Time: 10/07/23 13:57 Attending Provider: Camacho Aguilar Primary Care Provider: Joo Campos Consulting Providers: Jaci Greco; Tony Mayer Instructions Additional Instructions / Restrictions: Obtain an outpatient referral for neurology by her PCP for further evaluation of the spasticity, your EEG and your MRI were unremarkable Discharge Orders/Prescriptions Prescriptions: Continued metformin 500 MG tablet 500 mg PO DAILY trazodone 50 MG tablet 50 mg PO DAILY PRN (Reason: Anxiety) clonazepam 1 MG tablet 1 mg PO QHS citalopram 20 MG tablet 20 mg PO QHS multivitamin with folic acid [Thera] 1 TABLET tablet 1 tab PO DAILY clopidogrel 75 MG tablet 1 tab PO QHS sacubitril-valsartan [Entresto] 0.5 tab PO BID Jardiance 10 mg tablet 10 mg PO DAILY metoprolol succinate 25 mg tablet extended release 24 hr 12.5 mg PO DAILY pantoprazole 40 MG tablet 40 mg PO BID cholecalciferol (vitamin D3) 25 mcg (1,000 unit) Tablet 50 mcg PO QHS Qty: 0 0RF aspirin 81 mg tablet,delayed release (DR/EC) 81 mg PO DAILY atorvastatin 40 mg tablet 40 mg PO QHS spironolactone 25 mg tablet 12.5 mg PO MOWEFR baclofen 10 mg tablet 10 mg PO BID enoxaparin 40 mg/0.4 mL syringe 40 mg subcut 0600 Referrals / Follow Up: Joo Campos DO [Primary Care Provider] - 10/22/23 2:00 pm (Appointment is at the [place] office.) Disposition Disposition (needs filled in before D/C Order can be placed): Home, Self Care Charges/Coding Visit Charges Inpatient E&M: 64970 Disch Hosp >30min
== END 2023-10-12 11:27 | disposition home or self-care (01) ==
LOC: ED 13:22 → PCU 14:43
PROVIDERS: Internal Medicine; Admitting Provider Family Medicine; Emergency Provider Emergency Medicine; PCP Student in an Organized Health Care Education/Training Program; Visit Provider Family Medicine
DX: R53.1 Weakness (principal); I69.351 Hemiplegia and hemiparesis following cerebral infarction affecting right dominant side; I50.22 Chronic systolic (congestive) heart failure; I13.0 Hypertensive heart and chronic kidney disease with heart failure and stage 1 through stage 4 chronic kidney disease, or unspecified chronic kidney disease; E11.22 Type 2 diabetes mellitus with diabetic chronic kidney disease; E11.9 Type 2 diabetes mellitus without complications; Z87.891 Personal history of nicotine dependence; F41.8 Other specified anxiety disorders; H53.8 Other visual disturbances; R41.0 Disorientation, unspecified; Z79.82 Long term (current) use of aspirin; Z79.84 Long term (current) use of oral 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 drugs; E78.00 Pure hypercholesterolemia, unspecified; R47.1 Dysarthria and anarthria; I25.5 Ischemic cardiomyopathy; Q21.12 Patent foramen ovale; Z79.02 Long term (current) use of antithrombotics/antiplatelets; I25.10 Atherosclerotic heart disease of native coronary artery without angina pectoris; Z79.01 Long term (current) use of anticoagulants; Z95.810 Presence of automatic (implantable) cardiac defibrillator; Z79.899 Other long term (current) drug therapy; N18.2 Chronic kidney disease, stage 2 (mild)
CPT/HCPCS: 36415; 70450; 70496; 70498; 70553; 71045; 80048; 80053; 82962; 83036; 83735; 84100; 84484; 85025; 85610; 85730; 92507; 92522; 93005; 94668; 94762; 95819; 96360; 96361; 96372; 97110; 97116; 97162; 97166; 97530; 97535; 99221; 99252; 99285; A9575; J7030; Q9967; A4216; G0378; G0463

== ENCOUNTER 2023-12-08 13:01 | Emergency (ER) | payer MEDICARE, SELFPAY ==
[2023-12-08 13:03] VITALS: BP 104/59; PULSE 59; RESP 20; TEMP 35.9; O2SAT 100
--- NOTE | 2023-12-08 14:14 | EKG12_ITS ---
Test Reason : SYNCOPE Blood Pressure : / mmHG Vent. Rate : 060 BPM Atrial Rate : 060 BPM P-R Int : 168 ms QRS Dur : 122 ms QT Int : 502 ms P-R-T Axes : 000 100 046 degrees QTc Int : 502 ms AV dual-paced rhythm Biventricular pacemaker detected Abnormal ECG Confirmed by MOY MORENO, ALEXANDER ([id number]), technical writer and editor VILMA DAVIDSON ([id number]) on 12/10/2023 9:45:37 AM Referred By: Confirmed By:ALEXANDER WINTER MD
[2023-12-08 15:46] VITALS: BP 104/56; PULSE 67; RESP 24; O2SAT 96; BMI 20.7
[2023-12-08 16:07] LABS: Bedside Glucose 129 mg/dL (74-106)
--- NOTE | 2023-12-08 16:34 | EDS_ITS ---
HPI History of Present Illness Chief Complaint: Fall Narrative Narrative: Patient presenting after mechanical fall a week ago. She states she fell on her right hip. She is not having difficulty walking. Denies numbness or tingling. Patient states today her right hip started to hurt. She does not know why. She has not had any new injury. Patient denies numbness or tingling. Patient feels otherwise well. She presents with her who states she has been eating and drinking normally. She making normal urine and stool. She has not been at her baseline. [facility] Medical History Anxiety and depression AV node dysfunction Cardiac resynchronization therapy defibrillator ([employer]) in place Cerebral palsy Congestive heart failure (CHF) Coronary artery disease CVA (cerebral vascular accident) Diabetes mellitus Former smoker Heart failure with reduced ejection fraction High cholesterol Hyperlipidemia Hypertension ICD (implantable cardioverter-defibrillator) in place Insomnia Ischemic cardiomyopathy Myocarditis Pacemaker PFO (patent foramen ovale) Presence of biventricular implantable cardioverter-defibrillator Restless legs Transient ischemic attack Ulcer Home Medications citalopram 20 mg tablet 20 mg PO QHS depression 11/18/14 [History Last Taken 10/06/23] clonazepam 1 mg tablet 1 mg PO QHS anxiety 11/18/14 [History Last Taken 10/06/23] metformin 500 mg tablet 500 mg PO DAILY diabetes 11/18/14 [History Last Taken 10/07/23] multivitamin with folic acid 400 mcg tablet (Thera) 1 tab PO DAILY vitamin 11/18/14 [History Last Taken 10/07/23] trazodone 50 mg tablet 50 mg PO DAILY PRN Anxiety 11/18/14 [History Last Taken 10/06/23] clopidogrel 75 mg tablet 1 tab PO QHS anti platelet 05/18/16 [History Last Taken 10/06/23] empagliflozin 10 mg tablet (Jardiance) 10 mg PO DAILY diabetes 09/28/23 [History Last Taken 10/07/23] metoprolol succinate 25 mg tablet,extended release 24 hr 12.5 mg PO DAILY blood pressure 09/28/23 [History Last Taken 10/07/23] pantoprazole 40 mg tablet,delayed release 40 mg PO BID stomach acid 09/28/23 [History Last Taken 10/07/23] sacubitril-valsartan 0.5 tab PO BID HTN 09/28/23 [History Last Taken 10/07/23] cholecalciferol (vitamin D3) 25 mcg (1,000 unit) tablet 50 mcg (2 x 25 mcg (1,000 unit)) PO QHS supplement #0 tabs 09/30/23 [Rx Last Taken 10/06/23] aspirin 81 mg tablet,delayed release 81 mg PO DAILY heart 10/01/23 [History Last Taken 10/07/23] atorvastatin 40 mg tablet 40 mg PO QHS CHOLESTEROL 10/07/23 [History Last Taken 10/06/23] baclofen 10 mg tablet 10 mg PO BID MUSCLE SPASMS 10/07/23 [History Last Taken 10/07/23] enoxaparin 40 mg/0.4 mL subcutaneous syringe 40 mg subcut 0600 BLOOD THINNER 10/07/23 [History Last Taken 10/07/23] spironolactone 25 mg tablet 12.5 mg PO MOWEFR FLUID 10/07/23 [History Last Taken 10/06/23] Allergy/AdvReac Type Severity Reaction Status Date / Time No Known Allergies Allergy Verified 12/08/23 13:03 Family History Father Heart disease Mother Anxiety and depression Suicide and self-inflicted injury from suicide age 52. Surgical History History of cardiac defibrillator placement History of cholecystectomy History of coronary artery stent placement History of skin surgery S/P colon polypectomy Social History household members: spouse Smoking Status: Former smoker how long ago did patient quit smokin-1.5 ppd from teen until quit in 2008. alcohol intake: never substance use type: does not use ROS ROS ED Constitutional Constitutional ED: Denies chills, fever(s) or sweats Eyes Eyes: Denies blurry vision or change in vision ENT ENT ED: Denies ear pain or sore throat Cardiovascular Cardiovascular: Denies chest pain, palpitations or racing heartbeat Respiratory/Chest Respiratory/Chest: Denies cough, dyspnea or sputum Gastrointestinal Gastrointestinal: Denies abdominal pain, constipation, diarrhea, nausea or vomiting Genitourinary Genitourinary ED: Denies dysuria, hematuria or urinary frequency Musculoskeletal Musculoskeletal: Reports other Details: Right hip pain ; Denies arthralgias, myalgias or neck pain Integumentary Denies abscess, Abrasions or rash Neurologic Neurologic: Denies headache(s), paresthesias or weakness Psychiatric Psychiatric: Denies anxiety, depression, suicidal ideation or suicidal thoughts Endocrine Endocrinology: Denies polydipsia or polyuria EXAM Physical Exam Const Vital Signs: 12/08/23 13:03 12/08/23 15:46 12/08/23 15:46 Temperature 96.7 F L Temperature Source Temporal Pulse Rate 59 L 67 Respiratory Rate 20 H 24 H Respiratory Effort Blood Pressure 104/59 L 104/56 L Blood Pressure Mean 74 72 Pulse Ox 100 96 Oxygen Delivery Method Room Air Room Air Room Air 12/08/23 15:46 12/08/23 17:00 Temperature Temperature Source Pulse Rate 83 Respiratory Rate 16 Respiratory Effort Normal Blood Pressure 118/66 Blood Pressure Mean 83 Pulse Ox 97 Oxygen Delivery Method Room Air Room Air Positive well nourished General Appearance ED: NAD HEENT trauma Eyes PERRL and EOMs intact bilaterally Resp normal respiratory effort Extremity Extremity Narrative: Mild tenderness palpation right lateral hip over the greater trochanter. Right knee extensor mechanism intact. Unable to flex the hip without any difficulty. Internal and external rotation do not appear to cause any exacerbation of the pain. Patient was able to get up and stand and walk around the room to try to isolate her pain. Neuro oriented x3 Sensorium / Orientation: alert Psych mental status grossly normal MDM MDM MDM Narrative Medical decision making narrative: Patient presenting with right hip pain after falling a week ago. She initially did not have any pain. She states the pain started today out of nowhere. Otherwise she has been up and about and has been able to carry on her activities of daily living and she was out shopping today when she noticed her hip hurt. Denies any trauma. Differential includes contusion versus muscle strain. X-ray of the right hip will be obtained. Patient given Toradol for pain. X-ray of the right hip on my interpretation is no acute fracture. Radiology interprets this and agrees. Patient discharged home in stable condition. Impression: 1. Mechanical fall 2. Right hip contusion Lab Data Attestation: I reviewed the patient's lab results. Labs: Laboratory Results - last 24 hr 12/08/23 15:45 POC Glucose 129 H Radiography Diagnostic Testing: Clinical Impression(s) from Imaging Studies Hip/Pelvis X-Ray 12/08/23 16:50 IMPRESSION: No evidence of displaced pelvic or hip fracture. Electronically Signed: Bishop Nichols MD at 17:12 EST , Discharge Plan Triage Chief Complaint: Fall ED Provider: Uday Orosco Dx/Rx/DC Orders Instructions: ED Hip Contusion, ED Fall Prevention Prescriptions: No Action metformin 500 MG tablet 500 mg PO DAILY trazodone 50 MG tablet 50 mg PO DAILY PRN (Reason: Anxiety) clonazepam 1 MG tablet 1 mg PO QHS citalopram 20 MG tablet 20 mg PO QHS multivitamin with folic acid [Thera] 1 TABLET tablet 1 tab PO DAILY clopidogrel 75 MG tablet 1 tab PO QHS sacubitril-valsartan [Entresto] 0.5 tab PO BID Jardiance 10 mg tablet 10 mg PO DAILY metoprolol succinate 25 mg tablet extended release 24 hr 12.5 mg PO DAILY pantoprazole 40 MG tablet 40 mg PO BID cholecalciferol (vitamin D3) 25 mcg (1,000 unit) Tablet 50 mcg PO QHS Qty: 0 0RF aspirin 81 mg tablet,delayed release (DR/EC) 81 mg PO DAILY atorvastatin 40 mg tablet 40 mg PO QHS spironolactone 25 mg tablet 12.5 mg PO MOWEFR baclofen 10 mg tablet 10 mg PO BID enoxaparin 40 mg/0.4 mL syringe 40 mg subcut 0600 Primary Care Provider: Joo Camops Referrals: Joo Campos DO [Primary Care Provider] - Disposition Disposition: Home, Self Care Capacity [employer] Reflex Medical hold order details:: IF a medical hold is selected below, a suggested order for a MEDICAL HOLD will reflex upon signing the document. Next of kin: [place] law dictates a PRIORITY LIST for identifying legal decision-maker/legal next of kin in the following order (LNOK): 1st: The patient?s legal guardian, if any 2nd: The patient's spouse (if status is questionable, consult Risk Management) 3rd: The patient?s adult child(kristopher) (majority, if multiple children) 4th: The patient?s parents 5th: The patient?s adult siblings (majority, if multiple children siblings)
[2023-12-08] MEDS: Ketorolac 15 MG/ML Vial IM (16:43)
--- NOTE | 2023-12-08 16:50 | RAD_ITS ---
EXAM: XR RIGHT HIP WITH PELVIS WHEN PERFORMED, 2 OR 3 VIEWS CLINICAL INDICATION: pain TECHNIQUE: Two or three views of the right hip with pelvis when performed. COMPARISON: No relevant prior studies available. FINDINGS: BONES/JOINTS: Unremarkable. No displaced fracture. No destructive or sclerotic lesions. Note that overlapping bowel shadows may however obscure fine detail. Sacroiliac joint is unremarkable. No widening of the pubic symphysis. The articular structures are unremarkable. SOFT TISSUES: Unremarkable. No soft tissue swelling or gas. RAD/HIP, UNI W/ Pelvis 2-3 Views IMPRESSION: No evidence of displaced pelvic or hip fracture. Electronically Signed: Bishop Nichols MD at 17:12 EST ,
[2023-12-08 17:00] VITALS: BP 118/66; PULSE 83; RESP 16; O2SAT 97
[2023-12-08 18:27] VITALS: BP 118/66; PULSE 77; RESP 16; O2SAT 99
== END 2023-12-08 18:28 | disposition home or self-care (01) ==
PROVIDERS: Emergency Provider Student in an Organized Health Care Education/Training Program; PCP Student in an Organized Health Care Education/Training Program; Visit Provider Student in an Organized Health Care Education/Training Program
DX: S70.01XA Contusion of right hip, initial encounter (principal); I50.9 Heart failure, unspecified; I11.0 Hypertensive heart disease with heart failure; E11.9 Type 2 diabetes mellitus without complications; Z87.891 Personal history of nicotine dependence; E78.00 Pure hypercholesterolemia, unspecified; W19.XXXA Unspecified fall, initial encounter
CPT/HCPCS: 73502; 82962; 93005; 96372; 99283

== ENCOUNTER 2024-02-19 15:05 | Emergency (ER) | payer MEDICARE, SELFPAY ==
[2024-02-19 15:07] VITALS: BP 99/61; PULSE 65; RESP 20; TEMP 37; O2SAT 99; BMI 19.8
[2024-02-19 15:09] VITALS: BP 119/61; PULSE 67; RESP 20; TEMP 36.3; O2SAT 99
[2024-02-19 15:53] LABS: Bacteria 0 SEEN /hpf (None Seen); Mucous, Urine 0 SEEN /hpf (<or=2+); Red Blood Cells-Urine 0 SEEN /hpf (0-5); Squamous Epithelial Cells - UA 0 SEEN /hpf (5-10); White Blood Cells 0 SEEN /hpf (0-5)
[2024-02-19 15:54] LABS: Color, Urine Yellow (Yellow); Glucose, Dipstick 1000 mg/dl (Normal); Ketone-Dipstick Negative (Negative); Leukocyte Esterase-Dipstick 25 /ul (Negative); Nitrite-Dipstick Negative (Negative); Occult Blood-Urine Negative /ul (Negative); Protein-Dipstick Negative (Negative); Specific Gravity, Urine 1.015 (1.002-1.030); Urine Bilirubin Dipstick Negative (Negative); Urine Clarity Clear (Clear); Urine Urobilinogen Normal (Normal)
--- NOTE | 2024-02-19 16:01 | EX.ED.DYSGE1 ---
HPI <AMRIK Lopes - Last Filed: 02/19/24 20:27> History of Present Illness Chief Complaint: Abd Pain Narrative Narrative: Patient presenting today due to generalized weakness over the past few months. reports that it has been worse over the past day, he has had to help assist her to the bathroom as she has been too weak to ambulate by herself which is abnormal for her. She reports that she has had suprapubic pain intermittently over the past month that occasionally radiates to her back. She is also had a productive cough over the past 3 to 4 days. She denies fevers, chills, chest pain, shortness of breath, nausea, and vomiting. She has a PMH of T2DM, HTN, HLD, and CVA. PFSH <AMRIK Lopes - Last Filed: 02/19/24 20:27> PFSH Medical History Anxiety and depression AV node dysfunction Cardiac resynchronization therapy defibrillator ([employer]) in place Cerebral palsy Congestive heart failure (CHF) Coronary artery disease CVA (cerebral vascular accident) Diabetes mellitus Former smoker Heart failure with reduced ejection fraction High cholesterol Hyperlipidemia Hypertension ICD (implantable cardioverter-defibrillator) in place Insomnia Ischemic cardiomyopathy Myocarditis Pacemaker PFO (patent foramen ovale) Presence of biventricular implantable cardioverter-defibrillator Restless legs Transient ischemic attack Ulcer Home Medications citalopram 20 mg tablet 20 mg PO QHS depression 11/18/14 [History Last Taken 10/06/23] clonazepam 1 mg tablet 1 mg PO QHS anxiety 11/18/14 [History Last Taken 10/06/23] metformin 500 mg tablet 500 mg PO DAILY diabetes 11/18/14 [History Last Taken 10/07/23] multivitamin with folic acid 400 mcg tablet (Thera) 1 tab PO DAILY vitamin 11/18/14 [History Last Taken 10/07/23] trazodone 50 mg tablet 50 mg PO DAILY PRN Anxiety 11/18/14 [History Last Taken 10/06/23] clopidogrel 75 mg tablet 1 tab PO QHS anti platelet 05/18/16 [History Last Taken 10/06/23] empagliflozin 10 mg tablet (Jardiance) 10 mg PO DAILY diabetes 09/28/23 [History Last Taken 10/07/23] metoprolol succinate 25 mg tablet,extended release 24 hr 12.5 mg PO DAILY blood pressure 09/28/23 [History Last Taken 10/07/23] pantoprazole 40 mg tablet,delayed release 40 mg PO BID stomach acid 09/28/23 [History Last Taken 10/07/23] sacubitril-valsartan 0.5 tab PO BID HTN 09/28/23 [History Last Taken 10/07/23] cholecalciferol (vitamin D3) 25 mcg (1,000 unit) tablet 50 mcg (2 x 25 mcg (1,000 unit)) PO QHS supplement #0 tabs 09/30/23 [Rx Last Taken 10/06/23] aspirin 81 mg tablet,delayed release 81 mg PO DAILY heart 10/01/23 [History Last Taken 10/07/23] atorvastatin 40 mg tablet 40 mg PO QHS CHOLESTEROL 10/07/23 [History Last Taken 10/06/23] baclofen 10 mg tablet 10 mg PO BID MUSCLE SPASMS 10/07/23 [History Last Taken 10/07/23] enoxaparin 40 mg/0.4 mL subcutaneous syringe 40 mg subcut 0600 BLOOD THINNER 10/07/23 [History Last Taken 10/07/23] spironolactone 25 mg tablet 12.5 mg PO MOWEFR FLUID 10/07/23 [History Last Taken 10/06/23] Allergy/AdvReac Type Severity Reaction Status Date / Time No Known Allergies Allergy Verified 02/19/24 15:09 Family History Father Heart disease Mother Anxiety and depression Suicide and self-inflicted injury from suicide age 52. Surgical History History of cardiac defibrillator placement History of cholecystectomy History of coronary artery stent placement History of skin surgery S/P colon polypectomy Social History household members: spouse Smoking Status: Former smoker how long ago did patient quit smokin-1.5 ppd from teen until quit in 2008. alcohol intake: never substance use type: does not use ROS <AMRIK Lopes - Last Filed: 02/19/24 20:27> ROS ED Constitutional Constitutional ED: Denies chills or fever(s) ENT ENT ED: Denies rhinorrhea or sore throat Cardiovascular Cardiovascular: Denies chest pain or palpitations Respiratory/Chest Respiratory/Chest: Reports cough; Denies dyspnea Gastrointestinal Gastrointestinal: Reports abdominal pain; Denies nausea or vomiting Genitourinary Genitourinary ED: Denies dysuria, hematuria or urinary urgency Musculoskeletal Musculoskeletal: Reports back pain; Denies arthralgias or myalgias Integumentary Denies rash Neurologic Neurologic: Reports weakness EXAM <AMRIK Lopes - Last Filed: 02/19/24 20:27> Physical Exam Const Vital Signs: 02/19/24 15:07 02/19/24 15:09 02/19/24 17:05 Temperature 98.6 F 97.4 F L Temperature Source Temporal Oral Pulse Rate 65 67 60 Pulse Rate [Lying] Pulse Rate [Sitting (for 1 minute prior to obtaining)] Pulse Rate [Standing (for 1 minute prior to obtaining)] Respiratory Rate 20 H 20 H 17 Blood Pressure 99/61 119/61 118/48 L Blood Pressure [Lying] Blood Pressure [Sitting (for 1 minute prior to obtaining)] Blood Pressure [Standing (for 1 minute prior to obtaining)] Blood Pressure Mean 73 80 71 Blood Pressure Mean [Lying] Blood Pressure Mean [Sitting (for 1 minute prior to obtaining)] Blood Pressure Mean [Standing (for 1 minute prior to obtaining)] Pulse Ox 99 99 100 Oxygen Delivery Method Room Air Room Air 02/19/24 17:28 02/19/24 18:33 Temperature 98.3 F Temperature Source Pulse Rate 76 Pulse Rate [Lying] 60 Pulse Rate [Sitting (for 1 minute prior to obtaining)] 87 Pulse Rate [Standing (for 1 minute prior to obtaining)] 61 Respiratory Rate 16 Blood Pressure 127/74 H Blood Pressure [Lying] 141/75 H Blood Pressure [Sitting (for 1 minute prior to obtaining)] 146/54 H Blood Pressure [Standing (for 1 minute prior to obtaining)] 117/86 H Blood Pressure Mean 91 Blood Pressure Mean [Lying] 97 Blood Pressure Mean [Sitting (for 1 minute prior to obtaining)] 84 Blood Pressure Mean [Standing (for 1 minute prior to obtaining)] 96 Pulse Ox 96 Oxygen Delivery Method Positive well nourished, well developed and no apparent distress General Appearance ED: well developed HEENT Reports normocephalic and head/scalp atraumatic Mouth ED: Yes moist mucous membranes normal Eyes PERRL and EOMs intact bilaterally Neck full ROM and supple Chest Wall inspection of chest normal Resp normal respiratory effort and clear to auscultation bilaterally Cardio regular rate and regular rhythm GI non-distended and no masses GI Narrative: Mild suprapubic tenderness to palpation, no rigidity or guarding Palpation: soft Back/Spine normal ROM and normal to inspection Extremity normal to inspection and full ROM Neuro oriented x3, CN's II-XII intact bilaterally, moves all extremities, no focal motor deficits and no sensory deficits noted Sensorium / Orientation: awake and alert Psych mental status grossly normal and thought process normal Skin no rashes or lesions noted and no wounds <Dr. Bryan Levin, DO - Last Filed: 02/20/24 02:08> Physical Exam Const Vital Signs: 02/19/24 15:07 02/19/24 15:09 02/19/24 17:05 Temperature 98.6 F 97.4 F L Temperature Source Temporal Oral Pulse Rate 65 67 60 Pulse Rate [Lying] Pulse Rate [Sitting (for 1 minute prior to obtaining)] Pulse Rate [Standing (for 1 minute prior to obtaining)] Respiratory Rate 20 H 20 H 17 Blood Pressure 99/61 119/61 118/48 L Blood Pressure [Lying] Blood Pressure [Sitting (for 1 minute prior to obtaining)] Blood Pressure [Standing (for 1 minute prior to obtaining)] Blood Pressure Mean 73 80 71 Blood Pressure Mean [Lying] Blood Pressure Mean [Sitting (for 1 minute prior to obtaining)] Blood Pressure Mean [Standing (for 1 minute prior to obtaining)] Pulse Ox 99 99 100 Oxygen Delivery Method Room Air Room Air 02/19/24 17:28 02/19/24 18:33 Temperature 98.3 F Temperature Source Pulse Rate 76 Pulse Rate [Lying] 60 Pulse Rate [Sitting (for 1 minute prior to obtaining)] 87 Pulse Rate [Standing (for 1 minute prior to obtaining)] 61 Respiratory Rate 16 Blood Pressure 127/74 H Blood Pressure [Lying] 141/75 H Blood Pressure [Sitting (for 1 minute prior to obtaining)] 146/54 H Blood Pressure [Standing (for 1 minute prior to obtaining)] 117/86 H Blood Pressure Mean 91 Blood Pressure Mean [Lying] 97 Blood Pressure Mean [Sitting (for 1 minute prior to obtaining)] 84 Blood Pressure Mean [Standing (for 1 minute prior to obtaining)] 96 Pulse Ox 96 Oxygen Delivery Method [facility] <AMRIK Lopes - Last Filed: 02/19/24 20:27> [facility] Narrative Medical decision making narrative: Patient presenting today due to weakness, suprapubic/lower abdominal pain, and a productive cough. The weakness has been intermittent over the past few months, the abdominal pain has been intermittent over the past month, her abdomen is soft. She is well-appearing and in no acute distress, vitals are unremarkable. Labs will be obtained to rule out leukocytosis, anemia, electrode abnormality, SUJATHA, and UTI. Chest x-ray will be obtained to rule out infiltrate and other cardiopulmonary abnormality. Chest x-ray unremarkable, CT shows constipation, I did encourage patient to use [id number] laxative such as MiraLAX. Labs overall are unremarkable. As I was explaining the workup to the patient and her , patient remained on her phone with the volume turned up loud. I did encourage that she follow-up with her PCP, reports that they have an appointment on Wednesday. She will be discharged home in stable condition and they are comfortable with plan. I have personally performed a face to face assessment of the patient and have reviewed the LEVI Note. I performed a substantive portion of the visit including all aspects of the following. My dale findings include: History is 69-year-old female presenting to the emergency room with a nonspecific weakness, 6 weeks of suprapubic lower abdominal discomfort, and cough. Has been states that she does not typically wish to go to the doctor. He states he was fight to get her to come to the hospital. He was concerned with the weakness or pain and that he got a blood pressure reading of 80 systolic at home. Patient sitting in the bed sunglasses on room darkened and on her phone. Patient is very vague in her answers. Exam is very nonfocal exam. No leg swelling lung sounds are clear. She is reports tenderness in the suprapubic region the abdomen is soft no guarding no rebound. Patient has a drop in her systolic pressure but still is not necessarily hypotensive and does not have reflexive tachycardia and her diastolic actually goes up with standing. Medical Decison Making laboratory findings showed chronic anemia. Slight increase of her creatinine from prior. No overt urinary infection. The CT shows increased stool. Unfortunately everything that the patient is presenting with and her workup is rather nonspecific. Not seeing any emergent reason to place her in the hospital. They are comfortable going home and following up returning if any worsening symptoms. Lab Data Attestation: I reviewed the patient's lab results. Lab results narrative: H&H 11.9 and 36.6, BUN 28, creatinine 1.33 Labs: Laboratory Results - last 24 hr 02/19/24 02/19/24 15:45 15:50 WBC 7.8 RBC 3.90 L Hgb 11.9 L Hct 36.6 L MCV 93.8 MCH 30.5 MCHC 32.5 RDW Std Deviation 45.7 H RDW Coeff of Edita 13.2 Plt Count 172 MPV 11.0 Immature Gran % (Auto) 0.300 Neut % (Auto) 56.6 Lymph % (Auto) 33.5 [place] % (Auto) 7.3 Eos % (Auto) 1.8 Baso % (Auto) 0.5 Absolute Neuts (auto) 4.4 Absolute Lymphs (auto) 2.61 Nucleated RBC % 0 Sodium 139 Potassium 4.6 Chloride 107 Carbon Dioxide 29.0 Anion Gap 3 L BUN 28 H Creatinine 1.33 H Estim Creat Clear Calc 36.28 Est GFR (MDRD) Af Amer 51 L Est GFR (MDRD) Non-Af 42 L BUN/Creatinine Ratio 21.1 H Glucose 133 H Calcium 9.3 Total Bilirubin 0.30 AST 23 ALT 20 Alkaline Phosphatase 58 Total Protein 7.6 Albumin 3.7 Globulin 3.9 Albumin/Globulin Ratio 0.9 Urine Color Yellow Urine Clarity Clear Urine pH 6.0 Ur Specific Dennis 1.015 Urine Protein Negative Urine Glucose (UA) 1000 H Urine Ketones Negative Urine Occult Blood Negative Urine Nitrite Negative Urine Bilirubin Negative Urine Urobilinogen Normal Ur Leukocyte Esterase 25 H Urine RBC 0 SEEN Urine WBC 0 SEEN Ur Squamous Epith Cells 0 SEEN Urine Bacteria 0 SEEN Urine Mucus 0 SEEN Radiography X-Ray: Read by ED Physician Diagnostic Testing: Clinical Impression(s) from Imaging Studies Chest X-Ray 02/19/24 16:48 IMPRESSION: AICD with trace right costophrenic angle effusion or atelectasis. No other acute finding. Electronically Signed: Antonio Max MD at 17:16 EDT , Abdomen/Pelvis CT 02/19/24 16:52 IMPRESSION: Large colonic stool burden. Distal colonic diverticulosis without evidence of diverticulitis. . Aortic atherosclerosis with mild infrarenal ectasia. Large left renal parapelvic cyst Electronically Signed: Antonio Max MD at 18:10 EDT , <Dr. Bryan Levin, DO - Last Filed: 02/20/24 02:08> [facility] Narrative Medical decision making narrative: Patient presenting today due to weakness, suprapubic/lower abdominal pain, and a productive cough. The weakness has been intermittent over the past few months, the abdominal pain has been intermittent over the past month, her abdomen is soft. She is well-appearing and in no acute distress, vitals are unremarkable. Labs will be obtained to rule out leukocytosis, anemia, electrode abnormality, SUJATHA, and UTI. Chest x-ray will be obtained to rule out infiltrate and other cardiopulmonary abnormality. I have personally performed a face to face assessment of the patient and have reviewed the LEVI Note. I performed a substantive portion of the visit including all aspects of the following. My dale findings include: History is 69-year-old female presenting to the emergency room with a nonspecific weakness, 6 weeks of suprapubic lower abdominal discomfort, and cough. Has been states that she does not typically wish to go to the doctor. He states he was fight to get her to come to the hospital. He was concerned with the weakness or pain and that he got a blood pressure reading of 80 systolic at home. Patient sitting in the bed sunglasses on room darkened and on her phone. Patient is very vague in her answers. Exam is very nonfocal exam. No leg swelling lung sounds are clear. She is reports tenderness in the suprapubic region the abdomen is soft no guarding no rebound. Patient has a drop in her systolic pressure but still is not necessarily hypotensive and does not have reflexive tachycardia and her diastolic actually goes up with standing. Medical Decison Making laboratory findings showed chronic anemia. Slight increase of her creatinine from prior. No overt urinary infection. The CT shows increased stool. Unfortunately everything that the patient is presenting with and her workup is rather nonspecific. Not seeing any emergent reason to place her in the hospital. They are comfortable going home and following up returning if any worsening symptoms. History & Record Review Discussion w/independent historian: Patient and Significant other Lab Data Labs: Laboratory Results - last 24 hr 02/19/24 02/19/24 15:45 15:50 WBC 7.8 RBC 3.90 L Hgb 11.9 L Hct 36.6 L MCV 93.8 MCH 30.5 MCHC 32.5 RDW Std Deviation 45.7 H RDW Coeff of Edita 13.2 Plt Count 172 MPV 11.0 Immature Gran % (Auto) 0.300 Neut % (Auto) 56.6 Lymph % (Auto) 33.5 [place] % (Auto) 7.3 Eos % (Auto) 1.8 Baso % (Auto) 0.5 Absolute Neuts (auto) 4.4 Absolute Lymphs (auto) 2.61 Nucleated RBC % 0 Sodium 139 Potassium 4.6 Chloride 107 Carbon Dioxide 29.0 Anion Gap 3 L BUN 28 H Creatinine 1.33 H Estim Creat Clear Calc 36.28 Est GFR (MDRD) Af Amer 51 L Est GFR (MDRD) Non-Af 42 L BUN/Creatinine Ratio 21.1 H Glucose 133 H Calcium 9.3 Total Bilirubin 0.30 AST 23 ALT 20 Alkaline Phosphatase 58 Total Protein 7.6 Albumin 3.7 Globulin 3.9 Albumin/Globulin Ratio 0.9 Urine Color Yellow Urine Clarity Clear Urine pH 6.0 Ur Specific Dennis 1.015 Urine Protein Negative Urine Glucose (UA) 1000 H Urine Ketones Negative Urine Occult Blood Negative Urine Nitrite Negative Urine Bilirubin Negative Urine Urobilinogen Normal Ur Leukocyte Esterase 25 H Urine RBC 0 SEEN Urine WBC 0 SEEN Ur Squamous Epith Cells 0 SEEN Urine Bacteria 0 SEEN Urine Mucus 0 SEEN Radiography Diagnostic Testing: Clinical Impression(s) from Imaging Studies Chest X-Ray 02/19/24 16:48 IMPRESSION: AICD with trace right costophrenic angle effusion or atelectasis. No other acute finding. Electronically Signed: Antonio Max MD at 17:16 EDT Reading Location ID and State: [facility] / [place] Tel , Service support , Abdomen/Pelvis CT 02/19/24 16:52 IMPRESSION: Large colonic stool burden. Distal colonic diverticulosis without evidence of diverticulitis. . Aortic atherosclerosis with mild infrarenal ectasia. Large left renal parapelvic cyst Electronically Signed: Antonio Max MD at 18:10 EDT Reading Location ID and State: [facility] / [place] Tel , Service support , Discharge Plan Triage Chief Complaint: Abd Pain ED Midlevel Provider: Breann East ED Provider: Bryan Levin Dx/Rx/DC Orders Clinical Impression: Cough, Chronic abdominal pain, Weakness, Constipation Instructions: Abdominal Pain, ED Constipation (Adult), ED Weakness (Uncertain Cause) Prescriptions: No Action metformin 500 MG tablet 500 mg PO DAILY trazodone 50 MG tablet 50 mg PO DAILY PRN (Reason: Anxiety) clonazepam 1 MG tablet 1 mg PO QHS citalopram 20 MG tablet 20 mg PO QHS multivitamin with folic acid [Thera] 1 TABLET tablet 1 tab PO DAILY clopidogrel 75 MG tablet 1 tab PO QHS sacubitril-valsartan [Entresto] 0.5 tab PO BID Jardiance 10 mg tablet 10 mg PO DAILY metoprolol succinate 25 mg tablet extended release 24 hr 12.5 mg PO DAILY pantoprazole 40 MG tablet 40 mg PO BID cholecalciferol (vitamin D3) 25 mcg (1,000 unit) Tablet 50 mcg PO QHS Qty: 0 0RF aspirin 81 mg tablet,delayed release (DR/EC) 81 mg PO DAILY atorvastatin 40 mg tablet 40 mg PO QHS spironolactone 25 mg tablet 12.5 mg PO MOWEFR baclofen 10 mg tablet 10 mg PO BID enoxaparin 40 mg/0.4 mL syringe 40 mg subcut 0600 Primary Care Provider: Joo Campos Referrals: Joo Campos DO [Primary Care Provider] - Activity Restrictions/Additional Instructions: Follow-up at your PCP appointment on Wednesday and return for any worsening of your symptoms. Stay well-hydrated, you can take either MiraLAX or Dulcolax for your constipation. Disposition Disposition: Home, Self Care Discharge Date/Time: 02/19/24 18:36
[2024-02-19 16:29] LABS: Absolute Lymphocyte Count 2.61 X10^3/uL (0.83-4.51); Absolute Neutrophil Count 4.4 X10^3/uL (2.0-7.7); Basophil# 0.04 X10^3/uL; Basophil% 0.5 % (0-1); Eosinophil# 0.14 X10^3/uL; Eosinophils% 1.8 % (0-5); Hematocrit 36.6 % (37-47); Hemoglobin 11.9 g/dL (12.0-15.0); Lymphocyte # 2.61 X10^3/ul (0.83-4.51); Lymphocyte % 33.5 % (19-41); Mean Corp Hgb Conc 32.5 g/dL (32-36); Mean Corpuscular Hgb 30.5 pg (27.0-32.0); Mean Corpuscular Volume 93.8 fL (81-99); Monocyte# 0.57 X10^3/uL; Monocyte% 7.3 % (0-10); NRBC Flagged by Analyzer 0 % (0-5); Neutrophil # 4.42 X10^3/uL (2.7-7.7); Neutrophil % 56.6 % (47-70); Platelet Count 172 K/mm3 (150-450); RBC Distribution Width CV 13.2 % (11.6-14.6); RBC Distribution Width SD 45.7 fl (35.1-43.9); White Blood Count 7.8 K/mm3 (4.4-11.0)
[2024-02-19 16:41] LABS: ALB/GLOB Ratio 0.9 RATIO (0.9-2.4); AST(SGOT) 23 U/L (15-37); Alanine Aminotransfer ALT/SGPT 20 U/L (13-56); Albumin, Serum 3.7 g/dL (3.2-5.0); Alkaline Phosphatase 58 U/L (45-117); Anion Gap 3 (5-15); BUN 28 mg/dL (7-18); BUN/Creat Ratio 21.1 RATIO (10-20); Calcium,Total 9.3 mg/dL (8.5-10.1); Chloride 107 mmol/L (98-107); Creatinine, Serum 1.33 mg/dL (0.55-1.02); EST Glomerular Filtration Rate 42 mL/min (>60); Est Glom Filt Rate - Afr Amer 51 mL/min (>60); Estimated Creatinine Clearance 36.28 ml/min; Globulin 3.9 g/dL (2.2-4.2); Glucose 133 mg/dL (74-106); Potassium 4.6 mmol/L (3.5-5.1); Protein, Total 7.6 g/dL (6.4-8.2); Sodium Level 139 mmol/L (136-145)
--- NOTE | 2024-02-19 16:48 | RAD_ITS ---
INDICATION: cough EXAMINATION/TECHNIQUE: X-RAY - XR Chest 1 View COMPARISON: None. FINDINGS: LINES/DEVICES: 3-lead left chest AICD. LUNGS: Trace right costophrenic angle effusion or atelectasis. No consolidation, edema or effusion. No pneumothorax. MEDIASTINUM AND CARDIOVASCULAR STRUCTURES: Cardiac silhouette not enlarged. BONES AND SOFT TISSUES: Unremarkable. RAD/Chest 1 View (Portable) IMPRESSION: AICD with trace right costophrenic angle effusion or atelectasis. No other acute finding. Electronically Signed: Antonio Max MD at 17:16 EDT ,
[2024-02-19] MEDS: 0.9% Normal Saline (1000mL) 1,000 ML 999 ML IV (16:49)
--- NOTE | 2024-02-19 16:52 | CT_ITS ---
INDICATION: abdominal pain EXAMINATION: CT ABDOMEN AND PELVIS WITH CONTRAST - CT Abdomen And Pelvis W/ Contrast Injection TECHNIQUE: Helically acquired images were obtained of the abdomen and pelvis following IV contrast. A radiation dose optimization technique was used for this scan. IV Contrast dosage and agent: 100 mL Isovue-300 Oral contrast: None. COMPARISON: Chest radiograph on same day. FINDINGS: LOWER CHEST: Lung bases are clear. No cardiomegaly or pericardial effusion. AICD. LIVER: Homogeneous. No focal mass. GALLBLADDER AND BILIARY TREE: Cholecystomy. No intra- or extrahepatic biliary ductal dilation. PANCREAS: No focal cystic or solid mass. SPLEEN: Normal size without focal cystic or solid mass. ADRENAL GLANDS: No nodules. KIDNEYS AND URETERS: Large left parapelvic cysts, no imaging follow-up required. Right extrarenal pelvis. No perinephric inflammation. Unremarkable ureters and bladder. PERITONEUM: No ascites or free air. No other fluid collection. BOWEL: No acute gastric finding. No small bowel distension or wall thickening. Normal appendix. Large colonic stool burden. Distal colonic diverticulosis without evidence of diverticulitis. . LYMPH NODES: No enlarged mesenteric or retroperitoneal lymph nodes. VESSELS: Aortic atherosclerosis with mild infrarenal ectasia to 2.6cm. REPRODUCTIVE ORGANS: Unremarkable uterus. No evidence of adnexal mass. ABDOMINAL WALL: No discrete abdominal or pelvic wall hernia. BONES: No lytic or blastic abnormality. Small posterior disc protrusions in the lower lumbar spine with mild spinal canal narrowing. CT/Abdomen/Pelvis W IV Cont ONLY IMPRESSION: Large colonic stool burden. Distal colonic diverticulosis without evidence of diverticulitis. . Aortic atherosclerosis with mild infrarenal ectasia. Large left renal parapelvic cyst Electronically Signed: Antonio Max MD at 18:10 EDT ,
[2024-02-19 17:05] VITALS: BP 118/48; PULSE 60; RESP 17; O2SAT 100
[2024-02-19 17:28] VITALS: BP 117/86; BP 141/75; BP 146/54; PULSE 60; PULSE 61; PULSE 87
[2024-02-19 18:33] VITALS: BP 127/74; PULSE 76; RESP 16; TEMP 36.8; O2SAT 96
== END 2024-02-19 18:36 | disposition home or self-care (01) ==
PROVIDERS: Physician Assistant; Emergency Provider Emergency Medicine; PCP Student in an Organized Health Care Education/Training Program; Visit Provider Emergency Medicine
DX: R10.9 Unspecified abdominal pain (principal); I11.0 Hypertensive heart disease with heart failure; I50.9 Heart failure, unspecified; E11.9 Type 2 diabetes mellitus without complications; G89.29 Other chronic pain; K59.00 Constipation, unspecified; E78.00 Pure hypercholesterolemia, unspecified; R53.1 Weakness; Z87.891 Personal history of nicotine dependence; D64.9 Anemia, unspecified; Z86.73 Personal history of transient ischemic attack (TIA), and cerebral infarction without residual deficits; K57.30 Diverticulosis of large intestine without perforation or abscess without bleeding; I77.811 Abdominal aortic ectasia; R05.9 Cough, unspecified
CPT/HCPCS: 96360; 96361; 99283; 71045; 74177; 80053; 81001; 85025; J7030; Q9967

== ENCOUNTER 2024-02-21 13:59 | Inpatient (IN) | payer MEDICARE, SELFPAY ==
[2024-02-21] VITALS (14 sets, daily range): BP systolic 84–105; BP diastolic 40–63; PULSE 63–91; RESP 14–20; TEMP 36.2–36.9; O2SAT 81–100; BMI 20.2; BMI 19.5
--- NOTE | 2024-02-21 14:31 | EDS_ITS ---
HPI HPI - GI History of Present Illness Chief Complaint: Abd Pain Informant: patient and spouse/S.O. Abdominal Pain/Flank Pain Onset: Days Context: Gradual Onset Timing: Continuous Quality: Cramping Location: Diffuse Worsened by: Food Relieved by: Nothing Nausea/Vomiting/Emesis GI Symptom: Positive for Nausea and Vomiting Quality: Positive for Nonbilious; Negative for Blood streaks, Coffee ground or Hematemesis Diarrhea/Melena/Hematochezia GI Symptom: Positive for Diarrhea and Hematochezia Associated Symptoms Associated Symptoms: Negative for Dysuria, Frequency or Hematuria Narrative Narrative: Patient presents with abdominal pain, nausea, vomiting, and diarrhea that has been getting progressively worse over the past few days. Patient was seen here 2 days ago and had a CT scan done at that time. Patient was discharged home with a diagnosis of constipation. states that he administered some Ex- Lax. Patient had a large bowel movement and is now having some diarrhea. states that today her bowel movement was red. also states that the patient has had some undigested food in her bowel movements. Patient admits to some nausea and vomiting. Patient denies any hematemesis or coffee-ground emesis. Patient states she has some diffuse cramping. Patient states it is worse over the periumbilical area. Patient states her pain is worse with eating. Patient states nothing makes it better. Patient denies any dysuria or hematuria. Patient admits to some subjective chills but denies any fevers. [facility] Medical History Anxiety and depression AV node dysfunction Cardiac resynchronization therapy defibrillator (FORGING DIE SINKER-D) in place Cerebral palsy Congestive heart failure (CHF) Coronary artery disease CVA (cerebral vascular accident) Diabetes mellitus Former smoker Heart failure with reduced ejection fraction High cholesterol Hyperlipidemia Hypertension ICD (implantable cardioverter-defibrillator) in place Insomnia Ischemic cardiomyopathy Myocarditis Pacemaker PFO (patent foramen ovale) Presence of biventricular implantable cardioverter-defibrillator Restless legs Transient ischemic attack Ulcer Home Medications citalopram 20 mg tablet 20 mg PO QHS depression 11/18/14 [History Last Taken 10/06/23] clonazepam 1 mg tablet 1 mg PO QHS anxiety 11/18/14 [History Last Taken 10/06/23] multivitamin with folic acid 400 mcg tablet (Thera) 1 tab PO DAILY vitamin 12/28/14 [History Last Taken 10/07/23] trazodone 50 mg tablet 50 mg PO DAILY PRN Anxiety 11/18/14 [History Last Taken 10/06/23] clopidogrel 75 mg tablet 1 tab PO QHS anti platelet 05/18/16 [History Last Taken 10/06/23] empagliflozin 10 mg tablet (Jardiance) 10 mg PO DAILY diabetes 09/28/23 [History Last Taken 10/07/23] metoprolol succinate 25 mg tablet,extended release 24 hr 12.5 mg PO DAILY blood pressure 09/28/23 [History Last Taken 10/07/23] pantoprazole 40 mg tablet,delayed release 40 mg PO BID stomach acid 09/28/23 [History Last Taken 10/07/23] cholecalciferol (vitamin D3) 25 mcg (1,000 unit) tablet 50 mcg (2 x 25 mcg (1,000 unit)) PO QHS supplement #0 tabs 09/30/23 [Rx Last Taken 10/06/23] aspirin 81 mg tablet,delayed release 81 mg PO DAILY heart 10/01/23 [History Last Taken 10/07/23] spironolactone 25 mg tablet 12.5 mg PO MOWEFR FLUID 10/07/23 [History Last Taken 10/06/23] baclofen 5 mg tablet 5 mg PO BID 02/21/24 [History Last Taken Unknown] calcium carbonate 600 mg-vitamin D3 10 mcg (400 unit) tablet 1 tab PO BID 02/21/24 [History Last Taken Unknown] escitalopram oxalate 10 mg tablet 10 mg PO DAILY 02/21/24 [History Last Taken Unknown] metformin 500 mg tablet,extended release 24 hr 500 mg PO DAILY 02/21/24 [History Last Taken Unknown] oxybutynin chloride 5 mg tablet,extended release 24 hr 5 mg PO DAILY 02/21/24 [History Last Taken Unknown] rosuvastatin 20 mg tablet 20 mg PO QHS 02/21/24 [History Last Taken Unknown] sacubitril 24 mg-valsartan 26 mg tablet (Entresto) 0.5 tab PO BID 02/21/24 [History Last Taken Unknown] Allergy/AdvReac Type Severity Reaction Status Date / Time No Known Allergies Allergy Verified 02/21/24 14:04 Family History Father Heart disease Mother Anxiety and depression Suicide and self-inflicted injury from suicide age 52. Surgical History History of cardiac defibrillator placement History of cholecystectomy History of coronary artery stent placement History of skin surgery S/P colon polypectomy Social History household members: spouse Smoking Status: Former smoker how long ago did patient quit smokin-1.5 ppd from teen until quit in 2008. alcohol intake: never substance use type: does not use ROS ROS ED Constitutional Constitutional ED: Reports chills and subjective; Denies fever(s) Eyes Eyes: Denies blurry vision or change in vision ENT ENT ED: Reports rhinorrhea; Denies sore throat Cardiovascular Cardiovascular: Denies chest pain or palpitations Respiratory/Chest Respiratory/Chest: Reports cough; Denies dyspnea Gastrointestinal Gastrointestinal: Denies nausea or vomiting Genitourinary Genitourinary ED: Denies dysuria or hematuria Musculoskeletal Musculoskeletal: Denies back pain or neck pain Integumentary Denies abscess or rash Neurologic Neurologic: Reports headache(s) and weakness Allergic/Immunologic Allergic/Immunologic ED: Denies mouth swelling or urticaria EXAM Physical Exam Const Vital Signs: 02/21/24 14:00 02/21/24 14:00 02/21/24 14:03 Temperature 97.1 F L 97.1 F L 97.1 F L Temperature Source Temporal Temporal Temporal Pulse Rate 91 91 91 Respiratory Rate 16 16 16 Blood Pressure 84/50 L 84/50 L 84/50 L Blood Pressure Mean 61 61 61 Pulse Ox 97 97 97 Oxygen Delivery Method Room Air Room Air Room Air 02/21/24 15:03 02/21/24 16:00 02/21/24 16:00 Temperature 98 F 98 F Temperature Source Temporal Temporal Pulse Rate 90 90 90 Respiratory Rate 18 18 18 Blood Pressure 94/57 L 100/60 100/60 Blood Pressure Mean 69 73 73 Pulse Ox 97 96 96 Oxygen Delivery Method Room Air Room Air Room Air 02/21/24 17:13 02/21/24 16:15 02/21/24 16:30 Temperature 98 F Temperature Source Temporal Pulse Rate 64 Respiratory Rate 18 Blood Pressure 102/62 104/40 L 96/55 L Blood Pressure Mean 75 59 69 Pulse Ox 98 Oxygen Delivery Method Room Air 02/21/24 16:45 02/21/24 17:13 02/21/24 17:15 Temperature Temperature Source Pulse Rate 63 Respiratory Rate 14 Blood Pressure 84/63 L 102/62 Blood Pressure Mean 70 72 Pulse Ox 81 Oxygen Delivery Method 02/21/24 17:30 02/21/24 17:45 02/21/24 18:00 Temperature Temperature Source Pulse Rate 63 67 69 Respiratory Rate 16 17 16 Blood Pressure 96/46 L 100/44 L 95/44 L Blood Pressure Mean 62 61 60 Pulse Ox 100 95 94 Oxygen Delivery Method Positive well nourished and well developed General Appearance ED: well developed and NAD HEENT Reports dry mucous membranes Mouth ED: Yes dry mucous membranes Mouth: dry mucous membranes Neck supple and no JVD Resp normal respiratory effort and clear to auscultation bilaterally Cardio regular rate and regular rhythm GI non-distended Palpation: soft and tender epigastric, LLQ, RLQ, LUQ, RUQ, periumbilical and suprapubic Neuro CN's II-XII intact bilaterally, moves all extremities and no sensory deficits noted Sensorium / Orientation: alert Motor Exam: strength 5/5 throughout Psych mental status grossly normal MDM MDM MDM Narrative Medical decision making narrative: Differential diagnosis includes gastrointestinal bleeding, dehydration, electrolyte abnormality, coagulopathy, pancreatitis, sepsis, and urinary tract infection. CBC will be obtained to assess for leukocytosis and anemia. Comprehensive metabolic profile will be obtained to assess for hepatic function, renal function, and electrolyte abnormality. Lipase will be obtained to assess for pancreatitis. PT with INR and PTT will be obtained to assess for coagulopathy. Urinalysis will be obtained to assess for urinary tract infection and hematuria. Lactate will be obtained to assess for sepsis and ischemic bowel. Stool for occult blood will be obtained to assess for gastrointestinal bleeding. Patient has CT scan of the abdomen pelvis with oral and IV contrast 2 days ago. I do not feel a repeat CT scan is necessary at this time. Lab Data Attestation: I reviewed the patient's lab results. Lab results narrative: CBC was reviewed. There is a leukocytosis of 20.5. Hemoglobin is stable at 12.2 and hematocrit is 36.4. Platelets are normal. Comprehensive metabolic profile was reviewed. BUN was 31 and creatinine was 2.08. This is increased from previous results. Lipase was reviewed and was normal at 18. PT with INR was reviewed. Pro time was 15.1 and INR is 1.2. PTT was normal at 24.8. Lactate was reviewed and was slightly elevated at 2.3. Urinalysis was reviewed and was within normal limits. Labs: Laboratory Results - last 24 hr 02/21/24 02/21/24 02/21/24 14:25 15:15 16:26 WBC 20.5 H RBC 3.98 L Hgb 12.2 Hct 36.4 L MCV 91.5 MCH 30.7 MCHC 33.5 RDW Std Deviation 45.0 H RDW Coeff of Edita 13.3 Plt Count 198 MPV 11.3 Immature Gran % (Auto) 0.700 Neut % (Auto) 88.4 H Lymph % (Auto) 5.3 L [place] % (Auto) 5.5 Eos % (Auto) 0.0 Baso % (Auto) 0.1 Absolute Neuts (auto) 18.1 H Absolute Lymphs (auto) 1.08 Nucleated RBC % 0 PT Cancelled 15.1 H INR Cancelled 1.2 APTT Cancelled 24.8 Sodium 137 Potassium 4.6 Chloride 100 Carbon Dioxide 24.0 Anion Gap 13 BUN 31 H Creatinine 2.08 H Est GFR (MDRD) Af Amer 30 L Est GFR (MDRD) Non-Af 25 L BUN/Creatinine Ratio 14.9 Glucose 241 H Lactic Acid 2.3 H* Calcium 9.4 Total Bilirubin 0.60 AST 35 ALT 28 Alkaline Phosphatase 58 Total Protein 7.8 Albumin 3.7 Globulin 4.1 Albumin/Globulin Ratio 0.9 Lipase 18 Urine Color Urine Clarity Urine pH Ur Specific [place] Urine Protein Urine Glucose (UA) Urine Ketones Urine Occult Blood Urine Nitrite Urine Bilirubin Urine Urobilinogen Ur Leukocyte Esterase Urine RBC Urine WBC Ur Squamous Epith Cells Urine Bacteria Urine Mucus 02/21/24 17:02 WBC RBC Hgb Hct MCV MCH MCHC RDW Std Deviation RDW Coeff of Edita Plt Count MPV Immature Gran % (Auto) Neut % (Auto) Lymph % (Auto) [place] % (Auto) Eos % (Auto) Baso % (Auto) Absolute Neuts (auto) Absolute Lymphs (auto) Nucleated RBC % PT INR APTT Sodium Potassium Chloride Carbon Dioxide Anion Gap BUN Creatinine Est GFR (MDRD) Af Amer Est GFR (MDRD) Non-Af BUN/Creatinine Ratio Glucose Lactic Acid Calcium Total Bilirubin AST ALT Alkaline Phosphatase Total Protein Albumin Globulin Albumin/Globulin Ratio Lipase Urine Color Yellow Urine Clarity Clear Urine pH 5.0 Ur Specific [place] 1.015 Urine Protein 15 H Urine Glucose (UA) 1000 H Urine Ketones 5 H Urine Occult Blood 10 H Urine Nitrite Negative Urine Bilirubin 1 H Urine Urobilinogen 1 H Ur Leukocyte Esterase 25 H Urine RBC 0-5 SEEN Urine WBC 0-5 SEEN Ur Squamous Epith Cells 0-5 SEEN Urine Bacteria 0 SEEN Urine Mucus 0 SEEN Radiography Diagnostic Testing: Clinical Impression(s) from Imaging Studies Abdomen CT 02/21/24 16:37 IMPRESSION: New inflammation along the length of the descending colon concerning for infectious or inflammatory colitis. Interval resolution of previous large colonic stool burden. Consider GI follow-up. Sigmoid colonic diverticulosis without focal inflamed diverticulum is just diverticulitis. New hyperdensity within previously hypodense left renal upper pole cyst on February 19, 2024. Change in attenuation may represent interval hemorrhage within the cyst. Follow-up multiphasic contrast-enhanced CT is recommended when clinically able to exclude underlying solid neoplastic component. Aortic atherosclerosis with mild aneurysmal ectasia to 2.7 cm Electronically Signed: Antonio Max MD at 18:54 EDT , CT scan of the abdomen pelvis was obtained. There is new inflammation along the length of the descending colon concerning for colitis. There is no evidence of bowel obstruction or perforation. There is a new hyperdensity in the left upper renal pole. This was interpreted by the radiologist and was also independently reviewed by myself. Treatment and Re-Evaluation :: Patient was given IV fluids. Patient was given morphine and Zofran. Patient wa s feeling somewhat better on reevaluation. Patient was advised of her findings. Patient was started on Unasyn. Case was discussed with the hospitalist. He will admit the patient to his service. Patient understood and was agreeable with the plan. All questions were answered. Discharge Plan Triage Chief Complaint: Abd Pain ED Provider: Jose Jaime Dx/Rx/DC Orders Clinical Impression: Colitis, Gastrointestinal bleeding, lower Prescriptions: No Action trazodone 50 MG tablet 50 mg PO DAILY PRN (Reason: Anxiety) clonazepam 1 MG tablet 1 mg PO QHS citalopram 20 MG tablet 20 mg PO QHS multivitamin with folic acid [Thera] 1 TABLET tablet 1 tab PO DAILY Hold Instructions: Pt is ill clopidogrel 75 MG tablet 1 tab PO QHS Jardiance 10 mg tablet 10 mg PO DAILY metoprolol succinate 25 mg tablet extended release 24 hr 12.5 mg PO DAILY pantoprazole 40 MG tablet 40 mg PO BID cholecalciferol (vitamin D3) 25 mcg (1,000 unit) Tablet 50 mcg PO QHS Qty: 0 0RF Hold Instructions: Pt is ill aspirin 81 mg tablet,delayed release (DR/EC) 81 mg PO DAILY spironolactone 25 mg tablet 12.5 mg PO MOWEFR oxybutynin chloride 5 mg tablet extended release 24hr 5 mg PO DAILY metformin 500 mg tablet extended release 24 hr 500 mg PO DAILY escitalopram oxalate 10 mg tablet 10 mg PO DAILY rosuvastatin 20 mg tablet 20 mg PO QHS calcium carbonate-vitamin D3 600 mg-10 mcg (400 unit) tablet 1 tab PO BID Hold Instructions: Pt is ill Entresto 24-26 mg tablet 0.5 tab PO BID baclofen 5 mg tablet 5 mg PO BID Patient Comments: PLEASE SEE ATTACHED FOR DETAILED DIRECTIONS Primary Care Provider: Joo Campos Referrals: Joo Campos DO [Primary Care Provider] - Disposition Disposition: Acute Care Hospital [facility]
[2024-02-21] MEDS: 0.9% Normal Saline (1000mL) 1,000 ML 1000 ML IV (14:45)
[2024-02-21 14:46] LABS: Absolute Lymphocyte Count 1.08 X10^3/uL (0.83-4.51); Absolute Neutrophil Count 18.1 X10^3/uL (2.0-7.7); Basophil# 0.03 X10^3/uL; Basophil% 0.1 % (0-1); Hematocrit 36.4 % (37-47); Hemoglobin 12.2 g/dL (12.0-15.0); Lymphocyte # 1.08 X10^3/ul (0.83-4.51); Lymphocyte % 5.3 % (19-41); Mean Corp Hgb Conc 33.5 g/dL (32-36); Mean Corpuscular Hgb 30.7 pg (27.0-32.0); Mean Corpuscular Volume 91.5 fL (81-99); Mean Platelet Vol. 11.3 fl (6.2-12.0); Monocyte# 1.12 X10^3/uL; Monocyte% 5.5 % (0-10); NRBC Flagged by Analyzer 0 % (0-5); Neutrophil # 18.09 X10^3/uL (2.7-7.7); Neutrophil % 88.4 % (47-70); Platelet Count 198 K/mm3 (150-450); RBC Distribution Width CV 13.3 % (11.6-14.6); Red Blood Count 3.98 M/mm3 (4.2-5.4); White Blood Count 20.5 K/mm3 (4.4-11.0)
[2024-02-21] MEDS: Ondansetron 4 MG/2 ML Vial IV (14:46)
[2024-02-21] MEDS: Morphine 4 MG/ML Syringe IV ×2 (14:46→17:19)
[2024-02-21 15:05] LABS: ALB/GLOB Ratio 0.9 RATIO (0.9-2.4); AST(SGOT) 35 U/L (15-37); Alanine Aminotransfer ALT/SGPT 28 U/L (13-56); Albumin, Serum 3.7 g/dL (3.2-5.0); Alkaline Phosphatase 58 U/L (45-117); Anion Gap 13 (5-15); BUN 31 mg/dL (7-18); BUN/Creat Ratio 14.9 RATIO (10-20); Calcium,Total 9.4 mg/dL (8.5-10.1); Chloride 100 mmol/L (98-107); Creatinine, Serum 2.08 mg/dL (0.55-1.02); EST Glomerular Filtration Rate 25 mL/min (>60); Est Glom Filt Rate - Afr Amer 30 mL/min (>60); Globulin 4.1 g/dL (2.2-4.2); Glucose 241 mg/dL (74-106); Lipase 18 U/L (13-75); Potassium 4.6 mmol/L (3.5-5.1); Protein, Total 7.8 g/dL (6.4-8.2); Sodium Level 137 mmol/L (136-145)
[2024-02-21 16:19] LABS: Lactic Acid 2.3 mmol/L (0.4-1.9)
--- NOTE | 2024-02-21 16:37 | CT_ITS ---
INDICATION: Abdominal pain -- IV PO Contrast EXAMINATION: CT ABDOMEN AND PELVIS WITHOUT CONTRAST - CT Abdomen And Pelvis W/O Contrast Injection TECHNIQUE: Helically acquired images were obtained of the abdomen and pelvis without oral or IV contrast. A radiation dose optimization technique was used for this scan. IV Contrast dosage and agent: None. Oral contrast: Administered. CTDI 6.23/ DLP 298.63 COMPARISON: February 19, 2024. FINDINGS: LOWER CHEST: Basilar emphysematous change.. No cardiomegaly or pericardial effusion. Cardiac pacer partially seen. LIVER: Homogeneous. No focal mass. GALLBLADDER AND BILIARY TREE: No calcified gallstones. No gallbladder distension or wall edema. No intra- or extrahepatic biliary ductal dilation. PANCREAS: No focal cystic or solid mass. SPLEEN: Normal size without focal cystic or solid mass. ADRENAL GLANDS: No nodules. KIDNEYS AND URETERS: Left renal midpole hypodense 4.6 cm parapelvic cyst is unchanged with new hyperattenuation in the left renal upper pole parapelvic 2.3 cm cyst axial image 42. Right extrarenal pelvis. No hydronephrosis. No perinephric inflammation. No nephrolithiasis. Unremarkable ureters. Unremarkable bladder. . PERITONEUM: No ascites or free air. No other fluid collection. BOWEL: No acute gastric finding. No small bowel distention or focal wall thickening. No evidence of appendicitis. There is new mild wall thickening and surrounding inflammatory stranding along the length of the descending colon with resolution of previous large colonic stool burden. Sigmoid colonic diverticulosis without focal inflamed diverticulum. LYMPH NODES: No enlarged mesenteric or retroperitoneal lymph nodes. VESSELS: Aortic atherosclerosis with infrarenal ectasia to 2.7 cm.. REPRODUCTIVE ORGANS: No pelvic masses. ABDOMINAL WALL: No discrete abdominal or pelvic wall hernia. BONES: No lytic or blastic abnormality. CT/Abdomen/Pel W ORAL Cont Only IMPRESSION: New inflammation along the length of the descending colon concerning for infectious or inflammatory colitis. Interval resolution of previous large colonic stool burden. Consider GI follow-up. Sigmoid colonic diverticulosis without focal inflamed diverticulum is just diverticulitis. New hyperdensity within previously hypodense left renal upper pole cyst on February 19, 2024. Change in attenuation may represent interval hemorrhage within the cyst. Follow-up multiphasic contrast-enhanced CT is recommended when clinically able to exclude underlying solid neoplastic component. Aortic atherosclerosis with mild aneurysmal ectasia to 2.7 cm Electronically Signed: Antonio Max MD at 18:54 EDT ,
[2024-02-21 16:53] LABS: International Normalized Ratio 1.2; Prothrombin Time (Protime)PT. 15.1 SECONDS (11.7-14.9)
[2024-02-21 16:54] LABS: Partial Thromboplast Time 24.8 Seconds (24.1-36.2)
[2024-02-21 17:08] LABS: Bacteria 0 SEEN /hpf (None Seen); Mucous, Urine 0 SEEN /hpf (<or=2+)
[2024-02-21 17:09] LABS: Color, Urine Yellow (Yellow); Glucose, Dipstick 1000 mg/dl (Normal); Ketone-Dipstick 5 mg/dl (Negative); Leukocyte Esterase-Dipstick 25 /ul (Negative); Nitrite-Dipstick Negative (Negative); Occult Blood-Urine 10 /ul (Negative); Protein-Dipstick 15 mg/dl (Negative); Specific Gravity, Urine 1.015 (1.002-1.030); Urine Clarity Clear (Clear); Urine Urobilinogen 1 mg/dl (Normal)
[2024-02-21 17:32] LABS: Urine Bilirubin Dipstick 1 mg/dL (Negative)
[2024-02-21 17:33] LABS: Red Blood Cells-Urine 0-5 SEEN /hpf (0-5); Squamous Epithelial Cells - UA 0-5 SEEN /hpf (5-10); White Blood Cells 0-5 SEEN /hpf (0-5)
--- NOTE | 2024-02-21 17:48 | EX.PCM.CON.G ---
HPI Consult Data Date of Consult: 02/21/24 HPI Narrative Reason for Consultation: Lower GI bleed HPI Narrative: BETTY CARO, is a 69 F who presenting today due to generalized weakness over the past few months. reports that it has been worse over the past day, he has had to help assist her to the bathroom as she has been too weak to ambulate by herself which is abnormal for her. She reports that she has had suprapubic pain intermittently over the past month that occasionally radiates to her back. She is also had a productive cough over the past 3 to 4 days. She denies fevers, chills, chest pain, shortness of breath, nausea, and vomiting. 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 She was out of the window to do anything medically such as tPA for presumed ischemic CVA so she was treated conservatively. I was called to see her due to some worsening abdominal pain following a disimpaction from her . This also progressed to worsening lower GI bleeding. 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 Cerebral palsy Congestive heart failure (CHF) Coronary artery disease CVA (cerebral vascular accident) Diabetes mellitus Former smoker Heart failure with reduced ejection fraction High cholesterol Hyperlipidemia Hypertension ICD (implantable cardioverter-defibrillator) in place Insomnia Ischemic cardiomyopathy Myocarditis Pacemaker PFO (patent foramen ovale) Presence of biventricular implantable cardioverter-defibrillator Restless legs Transient ischemic attack Ulcer Home Medications citalopram 20 mg tablet 20 mg PO QHS depression 11/18/14 [History Last Taken 10/06/23] clonazepam 1 mg tablet 1 mg PO QHS anxiety 11/18/14 [History Last Taken 10/06/23] multivitamin with folic acid 400 mcg tablet (Thera) 1 tab PO DAILY vitamin 11/18/14 [History Last Taken 10/07/23] trazodone 50 mg tablet 50 mg PO DAILY PRN Anxiety 11/18/14 [History Last Taken 10/06/23] clopidogrel 75 mg tablet 1 tab PO QHS anti platelet 05/18/16 [History Last Taken 10/06/23] empagliflozin 10 mg tablet (Jardiance) 10 mg PO DAILY diabetes 09/28/23 [History Last Taken 10/07/23] metoprolol succinate 25 mg tablet,extended release 24 hr 12.5 mg PO DAILY blood pressure 09/28/23 [History Last Taken 10/07/23] pantoprazole 40 mg tablet,delayed release 40 mg PO BID stomach acid 09/28/23 [History Last Taken 10/07/23] cholecalciferol (vitamin D3) 25 mcg (1,000 unit) tablet 50 mcg (2 x 25 mcg (1,000 unit)) PO QHS supplement #0 tabs 09/30/23 [Rx Last Taken 10/06/23] aspirin 81 mg tablet,delayed release 81 mg PO DAILY heart 10/01/23 [History Last Taken 10/07/23] spironolactone 25 mg tablet 12.5 mg PO MOWEFR FLUID 10/07/23 [History Last Taken 10/06/23] baclofen 5 mg tablet 5 mg PO BID 02/21/24 [History Last Taken Unknown] calcium carbonate 600 mg-vitamin D3 10 mcg (400 unit) tablet 1 tab PO BID 02/21/24 [History Last Taken Unknown] escitalopram oxalate 10 mg tablet 10 mg PO DAILY 02/21/24 [History Last Taken Unknown] metformin 500 mg tablet,extended release 24 hr 500 mg PO DAILY 02/21/24 [History Last Taken Unknown] oxybutynin chloride 5 mg tablet,extended release 24 hr 5 mg PO DAILY 02/21/24 [History Last Taken Unknown] rosuvastatin 20 mg tablet 20 mg PO QHS 02/21/24 [History Last Taken Unknown] sacubitril 24 mg-valsartan 26 mg tablet (Entresto) 0.5 tab PO BID 02/21/24 [History Last Taken Unknown] Allergy/AdvReac Type Severity Reaction Status Date / Time No Known Allergies Allergy Verified 02/21/24 14:04 Family History Father Heart disease Mother Anxiety and depression Suicide and self-inflicted injury from suicide age 52. Surgical History History of cardiac defibrillator placement History of cholecystectomy History of coronary artery stent placement History of skin surgery S/P colon polypectomy Social History household members: spouse Smoking Status: Former smoker how long ago did patient quit smokin-1.5 ppd from teen until quit in 2008. alcohol intake: never substance use type: does not use ROS ROS Narrative Admission Review of Systems: CONSTITUTIONAL: No weight loss, fever, chills, + weakness or fatigue. HEENT: + Vision blurring. Eyes: No visual loss, double vision or yellow sclerae. Ears, Nose, Throat: No hearing loss, sneezing, congestion, runny nose or sore throat. SKIN: No rash or itching, lesions, wounds. CARDIOVASCULAR: No chest pain, chest pressure or chest discomfort, palpitations, edema, orthopnea, syncopal events. RESPIRATORY: No shortness of breath, cough or sputum, wheezing, hemoptysis. GASTROINTESTINAL: No anorexia, nausea, vomiting or diarrhea, abdominal pain, melena, BRBPR. GENITOURINARY: No dysuria, frequency, urgency or retention. NEUROLOGICAL: + Dizziness, right lower extremity paresthesias, dysarthria, right upper and lower extremity focal weakness. No headache, syncope, , change in bowel or bladder control, seizure. MUSCULOSKELETAL: + muscle, back pain, joint pain or stiffness. HEMATOLOGIC: No anemia. Easy bleeding/bruising. LYMPHATICS: No enlarged nodes. No history of splenectomy. PSYCHIATRIC: + history of depression or anxiety. ENDOCRINOLOGIC: No reports of sweating, cold or heat intolerance. No polyuria or polydipsia. ALLERGIES: No history of asthma, hives, eczema or rhinitis. Physical Exam Narrative General: Alert, Oriented x3, Cooperative, No apparent distress HEENT: Atraumatic, PERRLA, EOMI, Normocephalic Oral: Moist Mucosa Neck: Supple, No JVD Lungs: Diminished, normal air movement, No rhonchi, No wheeze, No rales Cardiovascular: Regular rate, Regular Rhythm, Normal S1, Normal S2, No murmurs Abdomen: Soft, Non Tender, Non-Distended, No Hepato-splenomegaly Extremities: No edema, Capillary Refill Less than 3 Seconds Skin: No rashes, No breakdown Musculoskeletal: No Tenderness to Palpation of Joints or Extremities Neurological: Moves all extremities, Sensory exam intact to light touch and pain Psych/Mental Status: Normal affect Lab / Micro Data 02/21/24 14:25 02/21/24 14:25 Labs: Laboratory Results - last 24 hr 02/21/24 14:25: WBC 20.5 H, RBC 3.98 L, Hgb 12.2, Hct 36.4 L, MCV 91.5, MCH 30.7, MCHC 33.5, RDW Std Deviation 45.0 H, RDW Coeff of Edita 13.3, Plt Count 198, MPV 11.3, Immature Gran % (Auto) 0.700, Neut % (Auto) 88.4 H, Lymph % (Auto) 5.3 L, [place] % (Auto) 5.5, Eos % (Auto) 0.0, Baso % (Auto) 0.1, Absolute Neuts (auto) 18.1 H, Absolute Lymphs (auto) 1.08, Nucleated RBC % 0, Sodium 137, Potassium 4.6, Chloride 100, Carbon Dioxide 24.0, Anion Gap 13, BUN 31 H, Creatinine 2.08 H, Est GFR (MDRD) Af Amer 30 L, Est GFR (MDRD) Non-Af 25 L, BUN/Creatinine Ratio 14.9, Glucose 241 H, Calcium 9.4, Total Bilirubin 0.60, AST 35, ALT 28, Alkaline Phosphatase 58, Total Protein 7.8, Albumin 3.7, Globulin 4.1, Albumin/Globulin Ratio 0.9, Lipase 18 02/21/24 15:15: PT Cancelled, INR Cancelled, APTT Cancelled, Lactic Acid 2.3 H* 02/21/24 16:26: PT 15.1 H, INR 1.2, APTT 24.8 02/21/24 17:02: Urine Color Yellow, Urine Clarity Clear, Urine pH 5.0, Ur Specific [place] 1.015, Urine Protein 15 H, Urine Glucose (UA) 1000 H, Urine Ketones 5 H, Urine Occult Blood 10 H, Urine Nitrite Negative, Urine Bilirubin 1 H, Urine Urobilinogen 1 H, Ur Leukocyte Esterase 25 H, Urine RBC 0-5 SEEN, Urine WBC 0-5 SEEN, Ur Squamous Epith Cells 0-5 SEEN, Urine Bacteria 0 SEEN, Urine Mucus 0 SEEN Micro: Microbiology 02/21/24 16:20 Stool Stool Occult Blood (EDUARDO) - Final Occult Blood Positive Assessment & Plan Assessment/Plan (1) CVA (cerebral vascular accident): PLAN: Plan 69-year-old with unfortunate recent diagnosis of Recurrent right-sided weakness with spasticity secondary to possible underlying CVA. ? I am not sure why patient developed worsening constipation. Likely is medication side effect. She is on aspirin 81 milligrams a day. As she takes pantoprazole 40 mg twice a day. I think she needs undergo evaluation of her GI tract to see if she has any signs and symptoms of ischemic disease, peptic ulcer disease, chronic changes such as Lukasz's erosions, angiodysplasia, gastroesophageal reflux disease. Charges/Coding Visit Charges Inpatient E&M: 22764 SNF Init L2
[2024-02-21 19:22] LABS: Reflex Lactate? Y
[2024-02-21] MEDS: Bisacodyl 5 MG Tablet 20 MG PO (19:24)
[2024-02-21] MEDS: Ampicillin/Sulbactam 3 GM in 0.9% Normal Saline (100mL MB+) 100 ML IV (20:09)
[2024-02-21 20:59] LABS: Lactic Acid 1.5 mmol/L (0.4-1.9)
--- NOTE | 2024-02-21 21:25 | HP.PCM.HOS_ITS ---
HPI - General General Date of Admission: 02/21/24 Date of Service: 02/21/24 Chief Complaint: Abdominal pain, bright red blood in stool HPI Narrative BETTY CARO, is a 69 F who presents to the emergency room at [facility] for evaluation of right red rectal bleeding along with left lower quadrant abdominal pain. Patient was seen 2 days ago in the emergency room, CAT scan was obtained at that time with IV contrast and showed a large stool burden, she was discharged home with instructions to use laxatives. She is continue to have left lower quadrant abdominal pain however and today she noted that there was blood in her stool. Patient states she has diarrhea. Workup in the emergency room included a CBC which showed an elevated white blood cell count at 20.5, creatinine was elevated at 2.08 and BUN was 31, lactic acid was 2.3, glucose was 241. Patient's urinalysis was unremarkable except for leukocyte Estrace positive. Patient had an abdominal and pelvic CT with oral contrast only, there is noted to be new inflammation along the length of the descending colon concerning for infectious or inflammatory colitis. Sigmoid colonic diverticulosis was noted to be present without diverticulitis. There is noted to be a new hyperdensity within the previous hypodense left renal upper pole cyst on February 19, 2024. It was recommended that a follow-up contrast-enhanced CT be done when clinically able to exclude underlying solid neoplastic component. Patient will be admitted to [place] [id number], she will be placed on IV antibiotics, she will be seen by gastroenterology, she may need endoscopic procedures. Labs will be monitored. 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 Cerebral palsy Congestive heart failure (CHF) Coronary artery disease CVA (cerebral vascular accident) Diabetes mellitus Former smoker Heart failure with reduced ejection fraction High cholesterol Hyperlipidemia Hypertension ICD (implantable cardioverter-defibrillator) in place Insomnia Ischemic cardiomyopathy Myocarditis Pacemaker PFO (patent foramen ovale) Presence of biventricular implantable cardioverter-defibrillator Restless legs Transient ischemic attack Ulcer Home Medications citalopram 20 mg tablet 20 mg PO QHS depression 11/18/14 [History Last Taken 10/06/23] clonazepam 1 mg tablet 1 mg PO QHS anxiety 12/28/14 [History Last Taken 10/06/23] multivitamin with folic acid 400 mcg tablet (Thera) 1 tab PO DAILY vitamin 11/18/14 [History Last Taken 10/07/23] trazodone 50 mg tablet 50 mg PO DAILY PRN Anxiety 11/18/14 [History Last Taken 10/06/23] clopidogrel 75 mg tablet 1 tab PO QHS anti platelet 05/18/16 [History Last Taken 10/06/23] empagliflozin 10 mg tablet (Jardiance) 10 mg PO DAILY diabetes 09/28/23 [History Last Taken 10/07/23] metoprolol succinate 25 mg tablet,extended release 24 hr 12.5 mg PO DAILY blood pressure 09/28/23 [History Last Taken 10/07/23] pantoprazole 40 mg tablet,delayed release 40 mg PO BID stomach acid 09/28/23 [History Last Taken 10/07/23] cholecalciferol (vitamin D3) 25 mcg (1,000 unit) tablet 50 mcg (2 x 25 mcg (1,000 unit)) PO QHS supplement #0 tabs 09/30/23 [Rx Last Taken 10/06/23] aspirin 81 mg tablet,delayed release 81 mg PO DAILY heart 10/01/23 [History Last Taken 10/07/23] spironolactone 25 mg tablet 12.5 mg PO MOWEFR FLUID 10/07/23 [History Last Taken 10/06/23] baclofen 5 mg tablet 5 mg PO BID 02/21/24 [History Last Taken Unknown] calcium carbonate 600 mg-vitamin D3 10 mcg (400 unit) tablet 1 tab PO BID 02/21/24 [History Last Taken Unknown] escitalopram oxalate 10 mg tablet 10 mg PO DAILY 02/21/24 [History Last Taken Unknown] metformin 500 mg tablet,extended release 24 hr 500 mg PO DAILY 02/21/24 [History Last Taken Unknown] oxybutynin chloride 5 mg tablet,extended release 24 hr 5 mg PO DAILY 02/21/24 [History Last Taken Unknown] rosuvastatin 20 mg tablet 20 mg PO QHS 02/21/24 [History Last Taken Unknown] sacubitril 24 mg-valsartan 26 mg tablet (Entresto) 0.5 tab PO BID 02/21/24 [History Last Taken Unknown] Allergy/AdvReac Type Severity Reaction Status Date / Time No Known Allergies Allergy Verified 02/21/24 14:04 Family History Father Heart disease Mother Anxiety and depression Suicide and self-inflicted injury from suicide age 52. Surgical History History of cardiac defibrillator placement History of cholecystectomy History of coronary artery stent placement History of skin surgery S/P colon polypectomy Social History household members: spouse Smoking Status: Former smoker how long ago did patient quit smokin-1.5 ppd from teen until quit in 2008. alcohol intake: never substance use type: does not use ROS Constitutional Constitutional: Denies anorexia, change in weight, chills, fatigue, fever(s), malaise, night sweats or weakness Eyes Eyes: Denies blurry vision, change in vision, discharge from eye(s) or eye pain Cardiovascular Cardiovascular: Denies chest pain, claudication, dyspnea on exertion, edema or palpitations Respiratory/Chest Respiratory/Chest: Denies cough, hemoptysis, shortness of breath at rest or shortness of breath with exertion Gastrointestinal Gastrointestinal: Reports abdominal pain and hematochezia; Denies constipation, diarrhea, hematemesis, melena, nausea or vomiting Genitourinary Genitourinary: Denies difficulty urinating, dysuria, hematuria, urinary frequency, urinary hesitancy, urinary incontinence or urinary urgency Musculoskeletal Musculoskeletal: Denies back pain, joint pain, joint stiffness, joint swelling, myalgias or neck pain Neurologic Neurologic: Denies abnormal gait, abnormal speech, dizziness, focal weakness, headache(s), loss of vision, numbness, other visual disturbances, paresthesias, syncope or tingling Psychiatric Psychiatric: Denies anxiety, cognitive impairment, depression, irritability, mood swings or suicidal ideation Endocrine Endocrinology: Denies change in body appearance, cold intolerance, excessive sweating, heat intolerance, polydipsia or polyuria Hematologic/Lymphatic Hematologic/Lymphatic: Denies none, anemia, easy bleeding, easy bruising or lymphadenopathy Allergic/Immunologic Allergic/Immunologic: Denies rhinitis, urticaria, eczemia or asthma Vital Signs Vital Signs Vital Signs: 02/21/24 14:00 02/21/24 14:00 02/21/24 14:03 Temperature 97.1 F L 97.1 F L 97.1 F L Temperature Source Temporal Temporal Temporal Pulse Rate 91 91 91 Respiratory Rate 16 16 16 Blood Pressure 84/50 L 84/50 L 84/50 L Blood Pressure Mean 61 61 61 Pulse Ox 97 97 97 Oxygen Delivery Method Room Air Room Air Room Air 02/21/24 15:03 02/21/24 16:00 02/21/24 16:00 Temperature 98 F 98 F Temperature Source Temporal Temporal Pulse Rate 90 90 90 Respiratory Rate 18 18 18 Blood Pressure 94/57 L 100/60 100/60 Blood Pressure Mean 69 73 73 Pulse Ox 97 96 96 Oxygen Delivery Method Room Air Room Air Room Air 02/21/24 17:13 02/21/24 16:15 02/21/24 16:30 Temperature 98 F Temperature Source Temporal Pulse Rate 64 Respiratory Rate 18 Blood Pressure 102/62 104/40 L 96/55 L Blood Pressure Mean 75 59 69 Pulse Ox 98 Oxygen Delivery Method Room Air 02/21/24 16:45 02/21/24 17:13 02/21/24 17:15 Temperature Temperature Source Pulse Rate 63 Respiratory Rate 14 Blood Pressure 84/63 L 102/62 Blood Pressure Mean 70 72 Pulse Ox 81 Oxygen Delivery Method 02/21/24 17:30 02/21/24 17:45 02/21/24 18:00 Temperature Temperature Source Pulse Rate 63 67 69 Respiratory Rate 16 17 16 Blood Pressure 96/46 L 100/44 L 95/44 L Blood Pressure Mean 62 61 60 Pulse Ox 100 95 94 Oxygen Delivery Method 02/21/24 19:53 02/21/24 19:53 Temperature 98.2 F 98.2 F Temperature Source Oral Pulse Rate 66 66 Respiratory Rate 20 H 20 H Blood Pressure 105/45 L 105/45 L Blood Pressure Mean 65 65 Pulse Ox 97 97 Oxygen Delivery Method Room Air Weight Weight: 60.4 kg Body Mass Index (BMI) 20.2 Physical Exam Const alert, oriented x3, no apparent distress, average body habitus and healthy appearing General Appearance: cooperative, well kempt and well developed Orientation / Consciousness: awake, oriented to person, oriented to place and oriented to time HEENT normocephalic, head/scalp atraumatic, hearing grossly normal bilaterally and moist oral mucous membranes Eyes PERRL, EOMs intact bilaterally and conjunctivae normal Neck supple, no JVD, thyroid normal and no carotid bruits General: trachea midline Resp normal respiratory effort, no retractions, no use of accessory muscles and clear to auscultation bilaterally Auscultation: Negative for rales, rhonchi or wheezes Cardio regular rate, regular rhythm, S1 normal heart sound, S2 normal heart sound, no murmurs, no rub and no gallops GI normal to inspection, nondistended, normoactive bowel sounds, soft to palpation, non-tender and non-distended Extremity no clubbing, cyanosis or edema Skin no rashes or lesions noted General Skin Exam: no breakdown Neuro oriented x3, CN's II-XII intact bilaterally, moves all extremities, no focal motor deficits and no sensory deficits noted Neuro Narrative: Patient has a mild speech impediment Sensorium / Orientation: awake and alert Psych affect normal Results Lab / Micro Data 02/21/24 14:25 02/21/24 14:25 Labs: Laboratory Results - last 24 hr 02/21/24 14:25: WBC 20.5 H, RBC 3.98 L, Hgb 12.2, Hct 36.4 L, MCV 91.5, MCH 30.7, MCHC 33.5, RDW Std Deviation 45.0 H, RDW Coeff of Edita 13.3, Plt Count 198, MPV 11.3, Immature Gran % (Auto) 0.700, Neut % (Auto) 88.4 H, Lymph % (Auto) 5.3 L, [place] % (Auto) 5.5, Eos % (Auto) 0.0, Baso % (Auto) 0.1, Absolute Neuts (auto) 18.1 H, Absolute Lymphs (auto) 1.08, Nucleated RBC % 0, Sodium 137, Potassium 4.6, Chloride 100, Carbon Dioxide 24.0, Anion Gap 13, BUN 31 H, Creatinine 2.08 H, Est GFR (MDRD) Af Amer 30 L, Est GFR (MDRD) Non-Af 25 L, BUN/Creatinine Ratio 14.9, Glucose 241 H, Calcium 9.4, Total Bilirubin 0.60, AST 35, ALT 28, Alkaline Phosphatase 58, Total Protein 7.8, Albumin 3.7, Globulin 4.1, Albumin/Globulin Ratio 0.9, Lipase 18 02/21/24 15:15: PT Cancelled, INR Cancelled, APTT Cancelled, Lactic Acid 2.3 H* 02/21/24 16:26: PT 15.1 H, INR 1.2, APTT 24.8 02/21/24 17:02: Urine Color Yellow, Urine Clarity Clear, Urine pH 5.0, Ur Specific [place] 1.015, Urine Protein 15 H, Urine Glucose (UA) 1000 H, Urine Ke tones 5 H, Urine Occult Blood 10 H, Urine Nitrite Negative, Urine Bilirubin 1 H, Urine Urobilinogen 1 H, Ur Leukocyte Esterase 25 H, Urine RBC 0-5 SEEN, Urine WBC 0-5 SEEN, Ur Squamous Epith Cells 0-5 SEEN, Urine Bacteria 0 SEEN, Urine Mucus 0 SEEN 02/21/24 20:21: Lactic Acid 1.5 Micro: Microbiology 02/21/24 16:20 Stool Stool Occult Blood (EDUARDO) - Final Occult Blood Positive Imaging Radiology Impression Abdomen CT 02/21/24 16:37 IMPRESSION: New inflammation along the length of the descending colon concerning for infectious or inflammatory colitis. Interval resolution of previous large colonic stool burden. Consider GI follow-up. Sigmoid colonic diverticulosis without focal inflamed diverticulum is just diverticulitis. New hyperdensity within previously hypodense left renal upper pole cyst on February 19, 2024. Change in attenuation may represent interval hemorrhage within the cyst. Follow-up multiphasic contrast-enhanced CT is recommended when clinically able to exclude underlying solid neoplastic component. Aortic atherosclerosis with mild aneurysmal ectasia to 2.7 cm Electronically Signed: Antonio Max MD at 18:54 EDT Reading Location ID and State: [facility] / [place] Tel , Service support , Assessment & Plan Assessment/Plan (1) Gastrointestinal bleeding, lower: PLAN: Plan 1. Colitis-etiology unclear, patient will be admitted [facility], she was placed on IV antibiotics will be seen by gastroenterology, she may need endoscopic studies performed. #2 lower gastrointestinal bleeding secondary to #1-labs will be monitored #3 type 2 diabetes-patient's blood sugars will be monitored, sliding scale insulin will be given as necessary #4 ischemic cardiomyopathy-status post biventricular implantable cardio defibrillator-patient will remain on her outpatient medication #5 essential hypertension-patient will remain on her outpatient medications #6 cerebral palsy-complicates care, management, recovery, and prognosis #7 cerebrovascular disease-patient is currently on aspirin and Plavix, these will be held due to her lower GI bleeding #8 hyperlipidemia-patient is on statin #9 chronic anxiety/depression-patient will remain on her outpatient medications #10 abnormality of the left renal upper pole cyst-patient will need follow-up mu ltiphase contrast-enhanced CT when clinically able to exclude underlying solid neoplastic component. Dayshift hospitalist will need to arrange this. Total clinical time spent by myself addressing the patient's medical issues, reviewing all of her data, and collaborating with patient's care team: 75 minutes Charges/Coding Visit Charges Inpatient E&M: 41219 Init Hosp L3
[2024-02-21] MEDS: 0.9% Normal Saline (1000mL) 1,000 ML 75 ML IV (22:40)
[2024-02-21] MEDS: Polyethylene Glycol 3350 BOWEL PREP PO (22:41)
[2024-02-21] MEDS: Citalopram 20 MG Tablet PO (22:42)
[2024-02-21] MEDS: Atorvastatin Calcium 40 MG Tablet PO (22:42)
[2024-02-21] MEDS: Pantoprazole Sodium 40 MG Tablet PO (22:42)
[2024-02-21] MEDS: clonazePAM 1 MG Tablet PO (22:45)
[2024-02-21] MEDS: Baclofen 10 MG Tablet 5 MG PO (22:50)
[2024-02-22] VITALS (14 sets, daily range): BP systolic 75–120; BP diastolic 37–81; PULSE 59–86; RESP 16–18; TEMP 36.4–37.2; O2SAT 94–100; BMI 19.5
--- NOTE | 2024-02-22 05:00 | EKG12_ITS ---
Test Reason : AM EKG Blood Pressure : / mmHG Vent. Rate : 060 BPM Atrial Rate : 060 BPM P-R Int : 166 ms QRS Dur : 126 ms QT Int : 494 ms P-R-T Axes : 075 099 089 degrees QTc Int : 494 ms AV dual-paced rhythm Biventricular pacemaker detected Abnormal ECG When compared with ECG of 08-DEC-2023 15:27, No significant change was found Confirmed by Joo Christine ([id number]), book editor VILMA DAVIDSON ([id number]) on 02/22/2024 2:13:23 PM Referred By: JING Confirmed By:Joo Christine
[2024-02-22 05:39] LABS: Absolute Lymphocyte Count 2.06 X10^3/uL (0.83-4.51); Absolute Neutrophil Count 9.7 X10^3/uL (2.0-7.7); Basophil# 0.03 X10^3/uL; Basophil% 0.2 % (0-1); Eosinophil# 0.01 X10^3/uL; Eosinophils% 0.1 % (0-5); Hematocrit 32.7 % (37-47); Hemoglobin 10.7 g/dL (12.0-15.0); Lymphocyte # 2.06 X10^3/ul (0.83-4.51); Lymphocyte % 16.1 % (19-41); Mean Corp Hgb Conc 32.7 g/dL (32-36); Mean Corpuscular Hgb 30.1 pg (27.0-32.0); Mean Corpuscular Volume 92.1 fL (81-99); Mean Platelet Vol. 10.9 fl (6.2-12.0); Monocyte# 0.88 X10^3/uL; Monocyte% 6.9 % (0-10); NRBC Flagged by Analyzer 0 % (0-5); Neutrophil # 9.73 X10^3/uL (2.7-7.7); Neutrophil % 76.2 % (47-70); Platelet Count 173 K/mm3 (150-450); RBC Distribution Width CV 13.9 % (11.6-14.6); Red Blood Count 3.55 M/mm3 (4.2-5.4); White Blood Count 12.8 K/mm3 (4.4-11.0)
[2024-02-22 05:56] LABS: Anion Gap 5 (5-15); BUN 29 mg/dL (7-18); BUN/Creat Ratio 20.6 RATIO (10-20); Calcium,Total 8.8 mg/dL (8.5-10.1); Chloride 111 mmol/L (98-107); Creatinine, Serum 1.41 mg/dL (0.55-1.02); EST Glomerular Filtration Rate 39 mL/min (>60); Est Glom Filt Rate - Afr Amer 47 mL/min (>60); Glucose 187 mg/dL (74-106); Potassium 3.6 mmol/L (3.5-5.1); Sodium Level 141 mmol/L (136-145)
--- NOTE | 2024-02-22 08:40 | NURSING ---
CIED form faxed to device clinic at [facility]. pt's [employer]Electronic Warfare at [facility]: Dr. Russo [phone] Device Clinic in [facility] [phone]. .
[2024-02-22] MEDS: 0.9% Normal Saline (1000mL) 1,000 ML 999 ML IV (09:15)
[2024-02-22] MEDS: 0.9% Normal Saline (1000mL) 1,000 ML IV (09:15)
[2024-02-22] MEDS: Baclofen 10 MG Tablet 5 MG PO ×2 (10:23→21:42)
[2024-02-22] MEDS: Tolterodine Tartrate 2 MG CAP.SA PO (10:24)
[2024-02-22] MEDS: Pantoprazole Sodium 40 MG Tablet PO ×2 (10:24→21:42)
[2024-02-22] MEDS: Menthol/Lanolin/Calamine/Znox 113 GM Tube 1 APPLIC TOPICAL ×2 (10:25→21:36)
--- NOTE | 2024-02-22 10:55 | CASEMGMT ---
RN?CM?SUBWAY CAR REPAIRER?CM?to room to meet with patient for initial transition planning/care coordination?assessment.?RN?CM?introduced self and role at [facility].? Pt voices understanding and consents to?assessment?at this time.? Pt resting in bed in no distress at this time.?, Cuate, @ bedside. Pt is A/O at this time able to answer questions appropriately, although provided most of the following information. Care providers, pharmacy, and demographics verified/updated at this time. PCP: Dr Campos Specialists: Dr Recio, plant breeder scientist Katie; Dr Durán and Dr Abdi-- [facility] Neurologists; Dr Kaiser, Sales Representative Cash Registers; Psychiatrist in [facility] Pharmacy: [facility] [place] @ [place]. Otherwise, [facility]. Insurance: [employer] [facility] Prescription Benefit: yes Living Will/HPOA: yes, Cuate Pena LNOK: Cuate Living Arrangements: Patient lives with in a 2 story home w/2 steps to enter and siderails on both sides. FFSU. Patient was independent up until about 2-3 weeks ago when she started not feeling well/becoming ill. states she was able to walk to the dog and is now needing help to stand up Transportation: DME: Patient has shower chair, comfort height commode, quad cane, grab bars, glucometer, and walker at home. SNF/HHC: Pt has been to [facility] TCU and has had HHC in the past but could not recall agency. states he has just recently been talking w/PCP about pt going somewhere for rehab/therapy (SNF). feels pt would benefit from going to SNF @ discharge, but states he is not sure if pt would be agreeable. RN ALEJANDRO asked pt about this and she states she does not know at this bennie. Pt and made aware therapy would be evaluating pt and once that has been done SW or CM will f/u with them re: recommendations and can discuss this w/them further at that time. They were made aware, if SNF is recommended and if pt agreeable to going, a SNF list can be provided for them to review. Plan: TBD by course of treatment and progress w/therapy. PT/OT evals pending. Juni MARTINES RN, CM
--- NOTE | 2024-02-22 11:31 | CASEMGMT ---
Discharge Planning A list of?SNF providers including quality and resource use data and consistent with the patient's preferred geographic region, medical needs, and insurance network was created in [employer]Port Guide.? This list was provided to the SW. Danielle Casey Discharge Planning Asst.
--- NOTE | 2024-02-22 11:32 | NURSING ---
spoke with Maribell MARIN charge nurse- updated per Dr. Horta would like update after procedure regarding vitals. Maribell states she will let PACU know.
[2024-02-22] MEDS: Lactated Ringers 1,000 ML 15 ML IV (11:43)
--- NOTE | 2024-02-22 11:43 | CASEMGMT ---
Social Work Pt has a HCPOA and living will on file at [facility]. HCPOA is listed as her spouse Cuate Pena. EDUARDO Alas
--- NOTE | 2024-02-22 12:30 | COLBX_PTH ---
PATIENT: BETTY CARO LOC: MS3 U#:[id number] AGE/SX: 69/F [place] [facility] [place]: Dr. Ganesh Kiran MD : 1955 BED: 1 DIS: 02/29/2024 SPEC #: [id number] RECD: 02/23/24 10:17 STATUS: RONEN RESkyler #: [id number] LADONNA: 02/22/24 12:[address]: Shan Lockett DEPT: SURGICAL PATHOLOGY RECD BY: Lucero Parra ENTERED: 02/23/24 11:23 SP TYPE: COLON BX OTHR DR: Dr. Joo Campos, DO Dr. Ben Johnson, DO Dr. Heike Horta MD Tissues: Left colon Procedures: Surgery Specimen Level IV Comments: @ Ordering doctor for SUIV edited from to @ by DANTE at 02/24/24 1114 @ Submitting doctor edited from to @ by DANTE at 02/24/24 1114 HEADER OPERATION: Colonoscopy with biopsy PRE-OP DIAGNOSIS: Lower GI bleeding TISSUE SUBMITTED: Left side colon biopsy MICROSCOPIC DIAGNOSIS Left side colon, biopsy: Fragments of colonic mucosa with changes consistent with ischemic colitis and focal ulceration and associated acute inflammation. See comment. / 02/24/24 COMMENT Correlation with clinical, endoscopic findings and appropriate follow up are necessary. MICROSCOPIC DESCRIPTION Slides are reviewed. GROSS DESCRIPTION Received in fixative is one container labeled with the patient's name and designated Left side colon biopsy. The specimen consists of multiple irregular fragments of light cutler soft tissue that in aggregate measure 1.0 x 0.5 x 0.1 cm. The specimen is totally submitted in one cassette. CHERELLE/ 02/23/2024 TC:5 CPT: 58042
--- NOTE | 2024-02-22 14:14 | PN_ITS ---
Subjective Subjective Patient seen and examined. Her was by her bedside. Still admitted to abdominal pain but denied any nausea or vomiting. She has not had any more rectal bleeding. Blood pressures running low and was down in the 80s systolic. Review of systems otherwise negative. Objective Data Objective Data Vital Signs: Vital Signs Temp Pulse Resp BP Pulse Ox O2 Del Method 98.2 F 86 16 82/43 L 94 Room Air 02/22/24 11:00 02/22/24 11:00 02/22/24 11:00 02/22/24 11:00 02/22/24 11:00 02/22/24 11:00 Oxygen Delivery Method Room Air Weight: 129 lb Body Mass Index (BMI) 19.5 Intake & Output: Intake and Output for Last 24 Hours 02/20/24 02/21/24 02/22/24 23:59 23:59 23:59 Intake Total 1112 / 1112 1793.77 / 1793.77 Balance 1112 / 1112 1793.77 / 1793.77 Lab / Micro Data 02/22/24 05:09 02/22/24 05:09 Labs: Laboratory Results - last 24 hr 02/21/24 14:25: WBC 20.5 H, RBC 3.98 L, Hgb 12.2, Hct 36.4 L, MCV 91.5, MCH 30.7, MCHC 33.5, RDW Std Deviation 45.0 H, RDW Coeff of Edita 13.3, Plt Count 198, MPV 11.3, Immature Gran % (Auto) 0.700, Neut % (Auto) 88.4 H, Lymph % (Auto) 5.3 L, Throckmorton % (Auto) 5.5, Eos % (Auto) 0.0, Baso % (Auto) 0.1, Absolute Neuts (auto) 18.1 H, Absolute Lymphs (auto) 1.08, Nucleated RBC % 0, Sodium 137, Potassium 4.6, Chloride 100, Carbon Dioxide 24.0, Anion Gap 13, BUN 31 H, Creatinine 2.08 H, Est GFR (MDRD) Af Amer 30 L, Est GFR (MDRD) Non-Af 25 L, BUN/Creatinine Ratio 14.9, Glucose 241 H, Calcium 9.4, Total Bilirubin 0.60, AST 35, ALT 28, Alkaline Phosphatase 58, Total Protein 7.8, Albumin 3.7, Globulin 4.1, Albumin/Globulin Ratio 0.9, Lipase 18 02/21/24 15:15: PT Cancelled, INR Cancelled, APTT Cancelled, Lactic Acid 2.3 H* 02/21/24 16:26: PT 15.1 H, INR 1.2, APTT 24.8 02/21/24 17:02: Urine Color Yellow, Urine Clarity Clear, Urine pH 5.0, Ur Specific [place] 1.015, Urine Protein 15 H, Urine Glucose (UA) 1000 H, Urine Ketones 5 H, Urine Occult Blood 10 H, Urine Nitrite Negative, Urine Bilirubin 1 H, Urine Urobilinogen 1 H, Ur Leukocyte Esterase 25 H, Urine RBC 0-5 SEEN, Urine WBC 0-5 SEEN, Ur Squamous Epith Cells 0-5 SEEN, Urine Bacteria 0 SEEN, Urine Mucus 0 SEEN 02/21/24 20:21: Lactic Acid 1.5 02/22/24 05:09: WBC 12.8 H, RBC 3.55 L, Hgb 10.7 L, Hct 32.7 L, MCV 92.1, MCH 30.1, MCHC 32.7, RDW Std Deviation 47.0 H, RDW Coeff of Edita 13.9, Plt Count 173, MPV 10.9, Immature Gran % (Auto) 0.500, Neut % (Auto) 76.2 H, Lymph % (Auto) 16.1 L, Throckmorton % (Auto) 6.9, Eos % (Auto) 0.1, Baso % (Auto) 0.2, Absolute Neuts (auto) 9.7 H, Absolute Lymphs (auto) 2.06, Nucleated RBC % 0, Sodium 141, Potassium 3.6, Chloride 111 H, Carbon Dioxide 25.0, Anion Gap 5, BUN 29 H, C reatinine 1.41 H, Estim Creat Clear Calc 33.80, Est GFR (MDRD) Af Amer 47 L, Est GFR (MDRD) Non-Af 39 L, BUN/Creatinine Ratio 20.6 H, Glucose 187 H, Calcium 8.8 Micro: Microbiology 02/21/24 22:45 Stool Enteric Bacteriology - Final 02/21/24 22:45 Stool C. difficile GDH Antigen & Toxins - Final 02/21/24 22:45 Stool Clostridioides difficile (PCR) - Final 02/21/24 16:20 Stool Stool Occult Blood (EDUARDO) - Final Occult Blood Positive Radiography Diagnostic Testing: Radiology Impression Abdomen CT 02/21/24 16:37 IMPRESSION: New inflammation along the length of the descending colon concerning for infectious or inflammatory colitis. Interval resolution of previous large colonic stool burden. Consider GI follow-up. Sigmoid colonic diverticulosis without focal inflamed diverticulum is just diverticulitis. New hyperdensity within previously hypodense left renal upper pole cyst on February 19, 2024. Change in attenuation may represent interval hemorrhage within the cyst. Follow-up multiphasic contrast-enhanced CT is recommended when clinically able to exclude underlying solid neoplastic component. Aortic atherosclerosis with mild aneurysmal ectasia to 2.7 cm Electronically Signed: Antonio Max MD at 18:54 EDT , Physical Exam Const alert and oriented x3 Constitutional Narrative: frail General Appearance: cooperative HEENT normocephalic and head/scalp atraumatic Mouth: dry mucous membranes Eyes PERRL and EOMs intact bilaterally Neck no lymphadenopathy and supple Lymph Lymphatic: no lymphadenopathy noted and no lymphedema noted Resp normal respiratory effort, normal air movement and clear to auscultation bilaterally Cardio regular rate, regular rhythm, S1 normal heart sound, S2 normal heart sound and no murmurs GI normal to inspection, nondistended, normoactive bowel sounds, soft to palpation, non-tender and non-distended Extremity normal capillary refill, no clubbing, cyanosis or edema and no calf tenderness General Extremity: no tenderness to palpation of joints or extremities Skin General Skin Exam: no breakdown Neuro CN's II-XII intact bilaterally, no focal motor deficits, no sensory deficits noted and deep tendon reflexes 2+ bilaterally Motor Exam: strength 5/5 throughout and general weakness Psych thought process normal, cooperative and affect normal Appearance: appropriate Assessment & Plan Assessment/Plan (1) Gastrointestinal bleeding, lower: (2) Colitis: PLAN: Plan #Acute colitis * Was admitted with a complaint of bright red rectal bleeding left lower quadrant abdominal pain. CT of the abdomen and pelvis showed new inflammation along the length of the descending colon concerning for infectious or in flammatory colitis * Currently NPO. Being hydrated with fluids. On IV antibiotics. * Gastroenterology on board. For colonoscopy today. * #Hypotension: Blood pressure running low in the 80s systolic. Patient was metoprolol held. Being aggressively hydrated with IV fluids. #Lower GI bleed: Due to acute colitis as above #SUJATHA: Creatinine was 2.08 on admission. Baseline is around 0.8. Now down to 1.41 with hydration. Continue gentle hydration with IV fluids. #Type 2 diabetes mellitus: Currently NPO. On insulin sliding scale. Accu-Cheks every 6 hourly. #History of ischemic cardiomyopathy, s/p biventricular ICD. #Benign essential hypertension: Metoprolol and Entresto on hold due to patient being hypotensive. #History of cerebral palsy: Stable #History of CVA: On aspirin and Plavix on hold due to the GI bleed #Hyperlipidemia: On statin #Anxiety and depression: #Left upper renal pole cyst: Will benefit from a multiphase contrast-enhanced CT scan when clinically stable to exclude a solid neoplastic component. 6 DVT prophylaxis: SCDs. Charges/Coding Visit Charges Inpatient E&M: 64096 Subs Hosp L3
--- NOTE | 2024-02-22 14:19 | NURSING ---
1400 aldo sent down to AC
--- NOTE | 2024-02-22 16:38 | OP.COLON_ITS ---
Patient Name: Mansi Espino Procedure Date: 02/22/2024 3:56 PM Date of : 1955 Age: 69 Procedure: Colonoscopy Indications: Hematochezia Providers: Shan Lockett DO Medicines: Monitored Anesthesia Care Patient Profile: This is a 69 year old female. Refer to note in patient chart for documentation of history and physical. Last Colonoscopy: date unknown. Unable to locate last colonoscopy report. Complications: No immediate complications. Procedure: Pre-Anesthesia Assessment: - Prior to the procedure, a History and Physical was performed, and patient medications and allergies were reviewed. The patient is competent. The risks and benefits of the procedure and the sedation options and risks were discussed with the patient. All questions were answered and informed consent was obtained. Patient identification and proposed procedure were verified by the physician in the pre-procedure area. Mental Status Examination: alert and oriented. Airway Examination: normal oropharyngeal airway and neck mobility. Respiratory Examination: clear to auscultation. Prophylactic Antibiotics: The patient does not require prophylactic antibiotics. Prior Anticoagulants: The patient has taken no anticoagulant or antiplatelet agents. ASA Grade Assessment: III - A patient with severe systemic disease. After reviewing the risks and benefits, the patient was deemed in satisfactory condition to undergo the procedure. The anesthesia plan was to use monitored anesthesia care (MAC). Immediately prior to administration of medications, the patient was re-assessed for adequacy to receive sedatives. The heart rate, respiratory rate, oxygen saturations, blood pressure, adequacy of pulmonary ventilation, and response to care were monitored throughout the procedure. The physical status of the patient was re-assessed after the procedure. After I obtained informed consent, the scope was passed under direct vision. Throughout the procedure, the patient's blood pressure, pulse, and oxygen saturations were monitored continuously. The Colonoscope was introduced through the anus and advanced to the terminal ileum. The colonoscopy was performed without difficulty. The patient tolerated the procedure well. The patient tolerated the procedure well. The quality of the bowel preparation was good. The terminal ileum, ileocecal valve, appendiceal orifice, and rectum were photographed. Scope In: 4:10:46 PM Scope Withdrawal Time 0 hours 8 minutes 8 seconds Scope Out: 4:28:25 PM Total Procedure Duration Time 0 hours 17 minutes 39 seconds Findings: The perianal and digital rectal examinations were normal. Mild rectal prolapse was present. A few small and large-mouthed diverticula were found in the recto-sigmoid colon, sigmoid colon and hepatic flexure. Patchy moderate inflammation characterized by congestion (edema) and friability was found in the sigmoid colon, in the descending colon, at the splenic flexure, at the hepatic flexure and in the ascending colon. Biopsies were taken with a cold forceps for histology. Verification of patient identification for the specimen was done. Estimated blood loss was minimal. Retroflexion in the rectum was not performed due to anatomy. The exam was otherwise without abnormality. Impression: - Rectal prolapse. - Diverticulosis in the recto-sigmoid colon, in the sigmoid colon and at the hepatic flexure. - Patchy moderate inflammation was found in the sigmoid colon, in the descending colon, at the splenic flexure, at the hepatic flexure and in the ascending colon secondary to ischemic colitis. Biopsied. - The examination was otherwise normal. Recommendation: - [facility]. - Resume previous diet. - Continue present medications. - Await pathology results. -This is ischemic colitis secondary to severe constipation. The goal is an aggressive bowel regimen. - No recommendation at this time regarding repeat colonoscopy due to age. Procedure Code(s): --- Professional --- 72033, Colonoscopy, flexible; with biopsy, single or multiple CPT copyright 2021 [employer]. All rights reserved. The codes documented in this report are preliminary and upon software maintenance engineer review may be revised to meet current compliance requirements. Shan Lockett DO 02/22/2024 4:37:48 PM This report has been signed electronically. Number of Addenda: 0 Note Initiated On: 02/22/2024 3:56 PM
--- NOTE | 2024-02-22 16:38 | OP.CCLET_ITS ---
02/22/2024 Joo Campos Do Re : Colonoscopy procedure for Mansi Espino Dear Beth This procedure was performed on Thursday, February 22, 2024. My impressions and recommendations are as follows: Impressions : - Rectal prolapse. - Diverticulosis in the recto-sigmoid colon, in the sigmoid colon and at the hepatic flexure. - Patchy moderate inflammation was found in the sigmoid colon, in the descending colon, at the splenic flexure, at the hepatic flexure and in the ascending colon secondary to ischemic colitis. Biopsied. - The examination was otherwise normal. Recommendations : - [facility] to [facility] care. - Resume previous diet. - Continue present medications. - Await pathology results. -This is ischemic colitis secondary to severe constipation. The goal is an aggressive bowel regimen. - No recommendation at this time regarding repeat colonoscopy due to age. My findings are described in the full procedure note, which is enclosed. If I can be of further assistance, please feel free to contact me at . Sincerely, Shan Lockett DO 02/22/2024 4:37:48 PM This report has been signed electronically.
[2024-02-22] MEDS: Ampicillin/Sulbactam 3 GM in 0.9% Normal Saline (100mL MB+) 100 ML IV ×2 (17:29→21:36)
[2024-02-22] MEDS: Citalopram 20 MG Tablet PO (21:42)
[2024-02-22] MEDS: clonazePAM 1 MG Tablet PO (21:42)
[2024-02-22] MEDS: Atorvastatin Calcium 40 MG Tablet PO (21:42)
[2024-02-22 22:18] LABS: Bedside Glucose 183 mg/dL (74-106)
[2024-02-23] MEDS: 0.9% Normal Saline (1000mL) 1,000 ML 150 ML IV ×4 (00:21→20:07)
[2024-02-23 05:39] VITALS: BP 106/50; PULSE 65; RESP 18; TEMP 36.8; O2SAT 94
[2024-02-23] MEDS: Ampicillin/Sulbactam 3 GM in 0.9% Normal Saline (100mL MB+) 100 ML IV ×3 (05:42→21:24)
[2024-02-23 06:12] LABS: Absolute Lymphocyte Count 2.75 X10^3/uL (0.83-4.51); Absolute Neutrophil Count 4.8 X10^3/uL (2.0-7.7); Basophil# 0.02 X10^3/uL; Basophil% 0.2 % (0-1); Eosinophils% 1.2 % (0-5); Hematocrit 27.4 % (37-47); Hemoglobin 8.7 g/dL (12.0-15.0); Lymphocyte # 2.75 X10^3/ul (0.83-4.51); Mean Corp Hgb Conc 31.8 g/dL (32-36); Mean Corpuscular Hgb 30.1 pg (27.0-32.0); Mean Corpuscular Volume 94.8 fL (81-99); Mean Platelet Vol. 10.4 fl (6.2-12.0); Monocyte# 0.46 X10^3/uL; Monocyte% 5.7 % (0-10); NRBC Flagged by Analyzer 0 % (0-5); Neutrophil # 4.75 X10^3/uL (2.7-7.7); Neutrophil % 58.7 % (47-70); Platelet Count 130 K/mm3 (150-450); RBC Distribution Width CV 14.1 % (11.6-14.6); Red Blood Count 2.89 M/mm3 (4.2-5.4); White Blood Count 8.1 K/mm3 (4.4-11.0)
[2024-02-23 06:35] LABS: Anion Gap 2 (5-15); BUN 15 mg/dL (7-18); Chloride 115 mmol/L (98-107); EST Glomerular Filtration Rate 58 mL/min (>60); Est Glom Filt Rate - Afr Amer 70 mL/min (>60); Estimated Creatinine Clearance 47.66 ml/min; Glucose 134 mg/dL (74-106); Potassium 3.9 mmol/L (3.5-5.1); Sodium Level 142 mmol/L (136-145)
[2024-02-23 07:50] VITALS: BP 104/44; PULSE 66; RESP 18; TEMP 37; O2SAT 96
[2024-02-23] MEDS: Dicyclomine 10 MG Capsule PO (09:05)
[2024-02-23] MEDS: Baclofen 10 MG Tablet 5 MG PO ×2 (09:07→21:26)
[2024-02-23] MEDS: Menthol/Lanolin/Calamine/Znox 113 GM Tube 1 APPLIC TOPICAL ×2 (09:09→21:25)
[2024-02-23] MEDS: Tolterodine Tartrate 2 MG CAP.SA PO (09:09)
[2024-02-23] MEDS: Pantoprazole Sodium 40 MG Tablet PO ×2 (09:15→21:26)
--- NOTE | 2024-02-23 09:59 | PN_ITS ---
Subjective Subjective Patient seen and examined. She complained of some abdominal pain. SHe had colonoscopy yesterday which showed ischemic colitis and diverticulosis. Review of systems is otherwise negative. Objective Data Objective Data Vital Signs: Vital Signs Temp Pulse Resp BP Pulse Ox O2 Del Method 98.6 F 66 18 104/44 L 96 Room Air 02/23/24 07:50 02/23/24 07:50 02/23/24 07:50 02/23/24 07:50 02/23/24 07:50 02/23/24 07:55 Oxygen Delivery Method Room Air Weight: 128 lb 15.985 oz Body Mass Index (BMI) 19.5 Intake & Output: Intake and Output for Last 24 Hours 02/21/24 02/22/24 02/23/24 23:59 23:59 23:59 Intake Total 1112 / 1112 2975.02 / 2975.02 1417.0 / 1417.0 Balance 1112 / 1112 2975.02 / 2975.02 1417.0 / 1417.0 Lab / Micro Data 02/23/24 06:04 02/23/24 06:04 Labs: Laboratory Results - last 24 hr 02/22/24 05:09: Hemoglobin A1c 7.0 H 02/22/24 21:59: POC Glucose 183 H 02/23/24 06:04: WBC 8.1, RBC 2.89 L, Hgb 8.7 L, Hct 27.4 L, MCV 94.8, MCH 30.1, MCHC 31.8 L, RDW Std Deviation 48.0 H, RDW Coeff of Edita 14.1, Plt Count 130 L, MPV 10.4, Immature Gran % (Auto) 0.200, Neut % (Auto) 58.7, Lymph % (Auto) 34.0, Bea[place]gard % (Auto) 5.7, Eos % (Auto) 1.2, Baso % (Auto) 0.2, Absolute Neuts (auto) 4.8, Absolute Lymphs (auto) 2.75, Nucleated RBC % 0, Sodium 142, Potassium 3.9, Chloride 115 H, Carbon Dioxide 25.0, Anion Gap 2 L, BUN 15, Creatinine 1.00, Estim Creat Clear Calc 47.66, Est GFR (MDRD) Af Amer 70, Est GFR (MDRD) Non-Af 58 L, BUN/Creatinine Ratio 15.0, Glucose 134 H, Calcium 8.0 L Micro: Microbiology 02/21/24 22:45 Stool Enteric Bacteriology - Final 02/21/24 22:45 Stool C. difficile GDH Antigen & Toxins - Final 02/21/24 22:45 Stool Clostridioides difficile (PCR) - Final 02/21/24 16:20 Stool Stool Occult Blood (EDUARDO) - Final Occult Blood Positive Physical Exam Const alert, oriented x3, no apparent distress and average body habitus Constitutional Narrative: frail General Appearance: cooperative Orientation / Consciousness: awake HEENT normocephalic, head/scalp atraumatic, hearing grossly normal bilaterally and moist oral mucous membranes Eyes PERRL, EOMs intact bilaterally and conjunctivae normal Neck no lymphadenopathy, supple, no JVD, thyroid normal and no carotid bruits General: trachea midline Lymph Lymphatic: no lymphadenopathy noted and no lymphedema noted Resp normal respiratory effort, normal air movement, no retractions, no use of accessory muscles and clear to auscultation bilaterally Auscultation: Negative for rales, rhonchi or wheezes Cardio regular rate, regular rhythm, S1 normal heart sound, S2 normal heart sound, no murmurs, no rub and no gallops GI normal to inspection, nondistended, normoactive bowel sounds, soft to palpation and non-distended GI Narrative: mild lower abdominal tenderness, no guarding or rebound tenderness Extremity normal capillary refill, no clubbing, cyanosis or edema and no calf tenderness General Extremity: no tenderness to palpation of joints or extremities Skin no rashes or lesions noted General Skin Exam: no breakdown Neuro oriented x3, CN's II-XII intact bilaterally, moves all extremities, no focal motor deficits, no sensory deficits noted and deep tendon reflexes 2+ bilaterally Neuro Narrative: Patient has a mild speech impediment Sensorium / Orientation: awake and alert Motor Exam: strength 5/5 throughout and general weakness Psych thought process normal, cooperative and affect normal Appearance: appropriate Assessment & Plan Assessment/Plan (1) Gastrointestinal bleeding, lower: (2) Colitis: PLAN: Plan #Acute colitis * Was admitted with a complaint of bright red rectal bleeding left lower quadrant abdominal pain. CT of the abdomen and pelvis showed new inflammation along the length of the descending colon concerning for infectious or inflammatory colitis * colonoscopy showed diverticulosis in the rectosigmoid colon, sigmoid colon and hepatic flexure, as well as patchy moderate inflammation in the sigmoid colon, descending colon and at the heaptic nd and splenic flexure and in the ascending colon due to ischemic colitis. * now on oral diet. * per GI, she has ischemic colitis secondary to severe constipation. * GI on board * #Hypotension: resolved. Continue holding metoprolol as BP is on the lower side of normal. #Lower GI bleed: Due to acute colitis as above. Resolved #SUJATHA: resolved. Cr is down to 1. #Type 2 diabetes mellitus: Currently NPO. On insulin sliding scale. Accu-Cheks every 6 hourly. #History of ischemic cardiomyopathy, s/p biventricular ICD. #Benign essential hypertension: Metoprolol and Entresto on hold due to patient being hypotensive. BP on the lower side of normal now, but will continue holding. #History of cerebral palsy: Stable #History of CVA: On aspirin and Plavix on hold due to the GI bleed #Hyperlipidemia: On statin #Anxiety and depression: #Left upper renal pole cyst:per radiologist, no further imaging required. DVT prophylaxis: SCDs. Disposition: anticipate dc over the next 24-48 hours. Charges/Coding Visit Charges Inpatient E&M: 13270 Subs Hosp L2
--- NOTE | 2024-02-23 12:04 | CASEMGMT ---
Social Work SW received a referral from [facility] for SNF. Pt received therapy today and pt would benefit from short term SNF prior to returning home with her spouse. SW met with pt and spouse and introduced self and role of SW. Pt states she was independent a month ago and had a decline during acute medical issues. Pt now feeling very weak and that she needs short term rehab prior to returning home. A list of SNF providers including quality and resource use data and consistent with the patient?s preferred geographic region, medical needs, and insurance network were provided from the CarePort Guide. Pt preferred provider is [facility]. Referral made to TCU. Pt will need precert prior to discharge. SW will await determination of acceptance. Plan: TCU, pending acceptance and precert EDUARDO Mustafa
[2024-02-23 13:37] VITALS: BP 126/56; PULSE 65; RESP 18; TEMP 36.9; O2SAT 99
--- NOTE | 2024-02-23 16:55 | EX.PCM.PN.GI ---
Subjective Subjective She underwent colonoscopy yesterday for lower GI bleeding. Had a long talk with her after procedure and explained to him the diagnosis and treatment recommendations. Objective Data Objective Data Vital Signs: Vital Signs Temp Pulse Resp BP Pulse Ox O2 Del Method 98.4 F 65 18 126/56 H 99 Room Air 02/23/24 13:37 02/23/24 13:37 02/23/24 13:37 02/23/24 13:37 02/23/24 13:37 02/23/24 13:37 Oxygen Delivery Method Room Air Weight: 128 lb 15.985 oz Body Mass Index (BMI) 19.5 Intake & Output: Intake and Output for Last 24 Hours 02/21/24 02/22/24 02/23/24 23:59 23:59 23:59 Intake Total 1112 / 1112 2975.02 / 2975.02 2526.5 / 2526.5 Balance 1112 / 1112 2975.02 / 2975.02 2526.5 / 2526.5 Lab / Micro Data 02/23/24 06:04 02/23/24 06:04 Labs: Laboratory Results - last 24 hr 02/22/24 21:59: POC Glucose 183 H 02/23/24 06:04: WBC 8.1, RBC 2.89 L, Hgb 8.7 L, Hct 27.4 L, MCV 94.8, MCH 30.1, MCHC 31.8 L, RDW Std Deviation 48.0 H, RDW Coeff of Edita 14.1, Plt Count 130 L, MPV 10.4, Immature Gran % (Auto) 0.200, Neut % (Auto) 58.7, Lymph % (Auto) 34.0, [place] % (Auto) 5.7, Eos % (Auto) 1.2, Baso % (Auto) 0.2, Absolute Neuts (auto) 4.8, Absolute Lymphs (auto) 2.75, Nucleated RBC % 0, Sodium 142, Potassium 3.9, Chloride 115 H, Carbon Dioxide 25.0, Anion Gap 2 L, BUN 15, Creatinine 1.00, Estim Creat Clear Calc 47.66, Est GFR (MDRD) Af Amer 70, Est GFR (MDRD) Non-Af 58 L, BUN/Creatinine Ratio 15.0, Glucose 134 H, Calcium 8.0 L Micro: Microbiology 02/21/24 22:45 Stool Enteric Bacteriology - Final 02/21/24 22:45 Stool C. difficile GDH Antigen & Toxins - Final 02/21/24 22:45 Stool Clostridioides difficile (PCR) - Final 02/21/24 16:20 Stool Stool Occult Blood (EDUARDO) - Final Occult Blood Positive Physical Exam Const alert, oriented x3, no apparent distress and average body habitus Constitutional Narrative: frail General Appearance: cooperative Orientation / Consciousness: awake HEENT normocephalic, head/scalp atraumatic, hearing grossly normal bilaterally and moist oral mucous membranes Eyes PERRL, EOMs intact bilaterally and conjunctivae normal Neck no lymphadenopathy, supple, no JVD, thyroid normal and no carotid bruits General: trachea midline Lymph Lymphatic: no lymphadenopathy noted and no lymphedema noted Resp normal respiratory effort, normal air movement, no retractions, no use of accessory muscles and clear to auscultation bilaterally Auscultation: Negative for rales, rhonchi or wheezes Cardio regular rate, regular rhythm, S1 normal heart sound, S2 normal heart sound, no murmurs, no rub and no gallops GI normal to inspection, nondistended, normoactive bowel sounds, soft to palpation and non-distended GI Narrative: mild lower abdominal tenderness, no guarding or rebound tenderness Extremity normal capillary refill, no clubbing, cyanosis or edema and no calf tenderness General Extremity: no tenderness to palpation of joints or extremities Skin no rashes or lesions noted General Skin Exam: no breakdown Neuro oriented x3, CN's II-XII intact bilaterally, moves all extremities, no focal motor deficits, no sensory deficits noted and deep tendon reflexes 2+ bilaterally Neuro Narrative: Patient has a mild speech impediment Sensorium / Orientation: awake and alert Motor Exam: strength 5/5 throughout and general weakness Psych thought process normal, cooperative and affect normal Appearance: appropriate Assessment & Plan Assessment/Plan (1) CVA (cerebral vascular accident): PLAN: Plan 69-year-old with unfortunate recent diagnosis of Recurrent right-sided weakness with spasticity secondary to possible underlying CVA. ? I am not sure why patient developed worsening constipation. Likely is medication side effect. She is on aspirin 81 milligrams a day. As she takes pantoprazole 40 mg twice a day. I think she needs undergo evaluation of her GI tract to see if she has any signs and symptoms of ischemic disease, peptic ulcer disease, chronic changes such as Lukasz's erosions, angiodysplasia, gastroesophageal reflux disease. Findings from colonoscopy Impression: - Rectal prolapse. - Diverticulosis in the recto-sigmoid colon, in the sigmoid colon and at the hepatic flexure. - Patchy moderate inflammation was found in the sigmoid colon, in the descending colon, at the splenic flexure, at the hepatic flexure and in the ascending colon secondary to ischemic colitis. Biopsied. - The examination was otherwise normal. Recommendation: - [facility]. - Resume previous diet. - Continue present medications. - Await pathology results. -This is ischemic colitis secondary to severe constipation. The goal is an aggressive bowel regimen. Charges/Coding Visit Charges Inpatient E&M: 36217 [facility] Hosp L3
[2024-02-23 21:22] VITALS: BP 130/61; PULSE 60; RESP 18; TEMP 36.9; O2SAT 94
[2024-02-23] MEDS: Citalopram 20 MG Tablet PO (21:25)
[2024-02-23] MEDS: clonazePAM 1 MG Tablet PO (21:25)
[2024-02-23] MEDS: Atorvastatin Calcium 40 MG Tablet PO (21:26)
[2024-02-24] MEDS: Ampicillin/Sulbactam 3 GM in 0.9% Normal Saline (100mL MB+) 100 ML IV ×3 (05:34→21:05)
[2024-02-24 05:36] VITALS: BP 141/55; PULSE 63; RESP 18; TEMP 37.1; O2SAT 93
[2024-02-24 07:13] LABS: Absolute Lymphocyte Count 2.15 X10^3/uL (0.83-4.51); Absolute Neutrophil Count 3.1 X10^3/uL (2.0-7.7); Basophil# 0.01 X10^3/uL; Basophil% 0.2 % (0-1); Eosinophil# 0.13 X10^3/uL; Eosinophils% 2.2 % (0-5); Hemoglobin 8.9 g/dL (12.0-15.0); Lymphocyte # 2.15 X10^3/ul (0.83-4.51); Lymphocyte % 37.2 % (19-41); Mean Corp Hgb Conc 31.8 g/dL (32-36); Mean Corpuscular Hgb 29.9 pg (27.0-32.0); Mean Platelet Vol. 10.7 fl (6.2-12.0); Monocyte# 0.35 X10^3/uL; Monocyte% 6.1 % (0-10); NRBC Flagged by Analyzer 0 % (0-5); Neutrophil # 3.13 X10^3/uL (2.7-7.7); Neutrophil % 54.1 % (47-70); Platelet Count 122 K/mm3 (150-450); RBC Distribution Width CV 13.6 % (11.6-14.6); RBC Distribution Width SD 46.8 fl (35.1-43.9); Red Blood Count 2.98 M/mm3 (4.2-5.4); White Blood Count 5.8 K/mm3 (4.4-11.0)
[2024-02-24 08:23] LABS: Anion Gap 4 (5-15); BUN 9 mg/dL (7-18); Calcium,Total 8.2 mg/dL (8.5-10.1); Chloride 117 mmol/L (98-107); Creatinine, Serum 0.75 mg/dL (0.55-1.02); EST Glomerular Filtration Rate 81 mL/min (>60); Est Glom Filt Rate - Afr Amer 98 mL/min (>60); Estimated Creatinine Clearance 59.58 ml/min; Glucose 137 mg/dL (74-106); Potassium 3.5 mmol/L (3.5-5.1); Sodium Level 145 mmol/L (136-145)
--- NOTE | 2024-02-24 09:32 | PN_ITS ---
Subjective Subjective Patient seen and examined. She complained of some abdominal pain with eating yesterday. Review of systems is otherwise negative. Objective Data Objective Data Vital Signs: Vital Signs Temp Pulse Resp BP Pulse Ox O2 Del Method 98.8 F 63 18 141/55 H 93 Room Air 02/24/24 05:36 02/24/24 05:36 02/24/24 05:36 02/24/24 05:36 02/24/24 05:36 02/24/24 05:36 Oxygen Delivery Method Room Air Weight: 128 lb 15.985 oz Body Mass Index (BMI) 19.5 Intake & Output: Intake and Output for Last 24 Hours 02/22/24 02/23/24 02/24/24 23:59 23:59 23:59 Intake Total 2975.02 / 2975.02 4286.0 / 4286.0 200 / 200 Balance 2975.02 / 2975.02 4286.0 / 4286.0 200 / 200 Lab / Micro Data 02/24/24 06:17 02/24/24 06:17 Labs: Laboratory Results - last 24 hr 02/24/24 06:17: WBC 5.8, RBC 2.98 L, Hgb 8.9 L, Hct 28.0 L, MCV 94.0, MCH 29.9, MCHC 31.8 L, RDW Std Deviation 46.8 H, RDW Coeff of Edita 13.6, Plt Count 122 L, MPV 10.7, Immature Gran % (Auto) 0.200, Neut % (Auto) 54.1, Lymph % (Auto) 37.2, [place] % (Auto) 6.1, Eos % (Auto) 2.2, Baso % (Auto) 0.2, Absolute Neuts (auto) 3.1, Absolute Lymphs (auto) 2.15, Nucleated RBC % 0, Sodium 145, Potassium 3.5, Chloride 117 H, Carbon Dioxide 24.0, Anion Gap 4 L, BUN 9, Creatinine 0.75, Estim Creat Clear Calc 59.58, Est GFR (MDRD) Af Amer 98, Est GFR (MDRD) Non-Af 81, BUN/Creatinine Ratio 12.0, Glucose 137 H, Calcium 8.2 L Micro: Microbiology 02/21/24 22:45 Stool Enteric Bacteriology - Final 02/21/24 22:45 Stool C. difficile GDH Antigen & Toxins - Final 02/21/24 22:45 Stool Clostridioides difficile (PCR) - Final 02/21/24 16:20 Stool Stool Occult Blood (EDUARDO) - Final Occult Blood Positive Physical Exam Const alert, oriented x3, no apparent distress, average body habitus and healthy appearing Constitutional Narrative: frail General Appearance: cooperative, well kempt and well developed Orientation / Consciousness: awake HEENT normocephalic, head/scalp atraumatic, hearing grossly normal bilaterally and moist oral mucous membranes Eyes PERRL, EOMs intact bilaterally and conjunctivae normal Neck no lymphadenopathy, supple, no JVD, thyroid normal and no carotid bruits General: trachea midline Lymph Lymphatic: no lymphadenopathy noted and no lymphedema noted Resp normal respiratory effort, normal air movement, no retractions, no use of accessory muscles and clear to auscultation bilaterally Auscultation: Negative for rales, rhonchi or wheezes Cardio regular rate, regular rhythm, S1 normal heart sound, S2 normal heart sound, no murmurs, no rub and no gallops GI normal to inspection, nondistended, normoactive bowel sounds, soft to palpation and non-distended GI Narrative: minimal lower abdominal tenderness, no guarding or rebound tenderness Extremity normal capillary refill, no clubbing, cyanosis or edema and no calf tenderness General Extremity: no tenderness to palpation of joints or extremities Skin no rashes or lesions noted General Skin Exam: no breakdown Neuro oriented x3, CN's II-XII intact bilaterally, moves all extremities, no focal motor deficits, no sensory deficits noted and deep tendon reflexes 2+ bilaterally Sensorium / Orientation: awake and alert Motor Exam: strength 5/5 throughout and general weakness Psych thought process normal, cooperative and affect normal Appearance: appropriate Assessment & Plan Assessment/Plan (1) Gastrointestinal bleeding, lower: (2) Colitis: PLAN: Plan #Acute colitis * Was admitted with a complaint of bright red rectal bleeding left lower quadrant abdominal pain. CT of the abdomen and pelvis showed new inflammation along the length of the descending colon concerning for infectious or inflammatory colitis * colonoscopy showed diverticulosis in the rectosigmoid colon, sigmoid colon and hepatic flexure, as well as patchy moderate inflammation in the sigmoid colon, descending colon and at the heaptic and splenic flexure and in the ascending colon due to ischemic colitis. * had mild tenderness with eating yesterday * now on oral diet. * per GI, she has ischemic colitis secondary to severe constipation. * GI on board #Hypotension: resolved. resume BP meds #Lower GI bleed: Due to acute colitis as above. Resolved #SUJATHA: resolved. #Type 2 diabetes mellitus: lantus resumed. ISS. Accuchecks ACHS #History of ischemic cardiomyopathy, s/p biventricular ICD. #Benign essential hypertension: Metoprolol and Entresto on hold due to patient being hypotensive. Resume metoprolol today #History of cerebral palsy: Stable #History of CVA: On aspirin and Plavix on hold due to the GI bleed #Hyperlipidemia: On statin #Anxiety and depression: #Left upper renal pole cyst:per radiologist, no further imaging required. DVT prophylaxis: SCDs. Disposition: awaiting placement Charges/Coding Visit Charges Inpatient E&M: 66746 Subs Hosp L2
[2024-02-24] MEDS: Acetaminophen 325 MG Tablet 650 MG PO ×2 (09:57→20:53)
[2024-02-24] MEDS: oxyCODONE 5 MG Tablet PO ×2 (09:57→20:52)
[2024-02-24] MEDS: Tolterodine Tartrate 2 MG CAP.SA PO (09:59)
[2024-02-24] MEDS: Pantoprazole Sodium 40 MG Tablet PO ×2 (09:59→20:52)
[2024-02-24] MEDS: Baclofen 10 MG Tablet 5 MG PO ×2 (09:59→21:28)
[2024-02-24 11:30] VITALS: BP 136/62; PULSE 60; RESP 16; TEMP 36.6; O2SAT 94
--- NOTE | 2024-02-24 13:41 | CASEMGMT ---
Social Work Precert has been obtained for pt to go to TCU. Physician updated and pt is not ready for dc today. Pt can dc to TCU when medically ready. Pt updated and agreeable. Plan: TCU, when medically ready EDUARDO Mustafa
[2024-02-24] MEDS: Lactated Ringers 1,000 ML 15 ML IV (14:40)
--- NOTE | 2024-02-24 17:05 | PN.GI_ITS ---
Subjective Subjective Patient had 1 bowel movement. She had a little bit of cramping but it improved after she had a bowel movement. Objective Data Objective Data Vital Signs: Vital Signs Temp Pulse Resp BP Pulse Ox O2 Del Method 98 F 60 16 136/62 H 94 Room Air 02/24/24 11:30 02/24/24 11:30 02/24/24 11:30 02/24/24 11:30 02/24/24 11:30 02/24/24 11:30 Oxygen Delivery Method Room Air Weight: 128 lb 15.985 oz Body Mass Index (BMI) 19.5 Intake & Output: Intake and Output for Last 24 Hours 02/22/24 02/23/24 02/24/24 23:59 23:59 23:59 Intake Total 2975.02 / 2975.02 4286.0 / 4286.0 624 / 624 Balance 2975.02 / 2975.02 4286.0 / 4286.0 624 / 624 Lab / Micro Data 02/24/24 06:17 02/24/24 06:17 Labs: Laboratory Results - last 24 hr 02/24/24 06:17: WBC 5.8, RBC 2.98 L, Hgb 8.9 L, Hct 28.0 L, MCV 94.0, MCH 29.9, MCHC 31.8 L, RDW Std Deviation 46.8 H, RDW Coeff of Edita 13.6, Plt Count 122 L, MPV 10.7, Immature Gran % (Auto) 0.200, Neut % (Auto) 54.1, Lymph % (Auto) 37.2, [place] % (Auto) 6.1, Eos % (Auto) 2.2, Baso % (Auto) 0.2, Absolute Neuts (auto) 3.1, Absolute Lymphs (auto) 2.15, Nucleated RBC % 0, Sodium 145, Potassium 3.5, Chloride 117 H, Carbon Dioxide 24.0, Anion Gap 4 L, BUN 9, Creatinine 0.75, Estim Creat Clear Calc 59.58, Est GFR (MDRD) Af Amer 98, Est GFR (MDRD) Non-Af 81, BUN/Creatinine Ratio 12.0, Glucose 137 H, Calcium 8.2 L Micro: Microbiology 02/21/24 22:45 Stool Enteric Bacteriology - Final 02/21/24 22:45 Stool C. difficile GDH Antigen & Toxins - Final 02/21/24 22:45 Stool Clostridioides difficile (PCR) - Final 02/21/24 16:20 Stool Stool Occult Blood (EDUARDO) - Final Occult Blood Positive Physical Exam Const alert, oriented x3, no apparent distress, average body habitus and healthy appearing Constitutional Narrative: frail General Appearance: cooperative, well kempt and well developed Orientation / Consciousness: awake HEENT normocephalic, head/scalp atraumatic, hearing grossly normal bilaterally and moist oral mucous membranes Eyes PERRL, EOMs intact bilaterally and conjunctivae normal Neck no lymphadenopathy, supple, no JVD, thyroid normal and no carotid bruits General: trachea midline Lymph Lymphatic: no lymphadenopathy noted and no lymphedema noted Resp normal respiratory effort, normal air movement, no retractions, no use of accessory muscles and clear to auscultation bilaterally Auscultation: Negative for rales, rhonchi or wheezes Cardio regular rate, regular rhythm, S1 normal heart sound, S2 normal heart sound, no murmurs, no rub and no gallops GI normal to inspection, nondistended, normoactive bowel sounds, soft to palpation and non-distended GI Narrative: minimal lower abdominal tenderness, no guarding or rebound tenderness Extremity normal capillary refill, no clubbing, cyanosis or edema and no calf tenderness General Extremity: no tenderness to palpation of joints or extremities Skin no rashes or lesions noted General Skin Exam: no breakdown Neuro oriented x3, CN's II-XII intact bilaterally, moves all extremities, no focal motor deficits, no sensory deficits noted and deep tendon reflexes 2+ bilaterally Sensorium / Orientation: awake and alert Motor Exam: strength 5/5 throughout and general weakness Psych thought process normal, cooperative and affect normal Appearance: appropriate Assessment & Plan Assessment/Plan (1) CVA (cerebral vascular accident): PLAN: Plan 69-year-old with unfortunate recent diagnosis of Recurrent right-sided weakness with spasticity secondary to possible underlying CVA. ? I am not sure why patient developed worsening constipation. Likely is medication side effect. She is on aspirin 81 milligrams a day. As she takes pantoprazole 40 mg twice a day. I think she needs undergo evaluation of her GI tract to see if she has any signs and symptoms of ischemic disease, peptic ulcer disease, chronic changes such as Lukasz's erosions, angiodysplasia, gastroesophageal reflux disease. Findings from colonoscopy Impression: - Rectal prolapse. - Diverticulosis in the recto-sigmoid colon, in the sigmoid colon and at the hepatic flexure. - Patchy moderate inflammation was found in the sigmoid colon, in the descending colon, at the splenic flexure, at the hepatic flexure and in the ascending colon secondary to ischemic colitis. Biopsied. - The examination was otherwise normal. Recommendation: - [facility] patient to [facility] care. - Resume previous diet. - Continue present medications. - Await pathology results. -This is ischemic colitis secondary to severe constipation. The goal is an aggressive bowel regimen. 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 She does take baclofen with narcotics at home and has a history of chronic idiopathic constipation. She was determined to have ischemic colitis in the setting of diverticular disease and mild sigmoid colitis associated with diverticulosis. Recommend to Dulcolax 5 mg twice a day. If she is gone but not gone completely then she will need to add MiraLAX on a daily basis.
[2024-02-24 18:19] VITALS: BP 122/78; PULSE 62; RESP 14; TEMP 36.6; O2SAT 95
[2024-02-24 20:47] VITALS: BP 135/84; PULSE 84; RESP 20; TEMP 36.5; O2SAT 98
[2024-02-24] MEDS: clonazePAM 1 MG Tablet PO (20:52)
[2024-02-24] MEDS: Citalopram 20 MG Tablet PO (20:52)
[2024-02-24] MEDS: Atorvastatin Calcium 40 MG Tablet PO (20:52)
[2024-02-24] MEDS: 0.9% Saline Lock 10 ML Syringe IV (20:56)
[2024-02-24] MEDS: Menthol/Lanolin/Calamine/Znox 113 GM Tube 1 APPLIC TOPICAL (20:56)
[2024-02-24] MEDS: Bisacodyl 5 MG Tablet PO (21:12)
[2024-02-25] VITALS (10 sets, daily range): BP systolic 117–153; BP diastolic 56–74; PULSE 77–96; RESP 14–20; TEMP 36.8–38.8; O2SAT 83–99
[2024-02-25] MEDS: 0.9% Saline Lock 10 ML Syringe IV ×2 (00:05→07:43)
[2024-02-25] MEDS: Ondansetron 4 MG/2 ML Vial IV ×2 (00:05→07:42)
[2024-02-25] MEDS: Acetaminophen 325 MG Tablet 650 MG PO ×3 (02:58→22:12)
[2024-02-25] MEDS: Ampicillin/Sulbactam 3 GM in 0.9% Normal Saline (100mL MB+) 100 ML IV ×2 (06:06→12:55)
[2024-02-25 07:38] LABS: Absolute Lymphocyte Count 0.95 X10^3/uL (0.83-4.51); Absolute Neutrophil Count 7.6 X10^3/uL (2.0-7.7); Basophil# 0.02 X10^3/uL; Basophil% 0.2 % (0-1); Eosinophil# 0.03 X10^3/uL; Eosinophils% 0.3 % (0-5); Hematocrit 29.3 % (37-47); Hemoglobin 9.6 g/dL (12.0-15.0); Lymphocyte # 0.95 X10^3/ul (0.83-4.51); Lymphocyte % 10.3 % (19-41); Mean Corp Hgb Conc 32.8 g/dL (32-36); Mean Corpuscular Hgb 30.4 pg (27.0-32.0); Mean Corpuscular Volume 92.7 fL (81-99); Mean Platelet Vol. 10.6 fl (6.2-12.0); Monocyte# 0.58 X10^3/uL; Monocyte% 6.3 % (0-10); NRBC Flagged by Analyzer 0 % (0-5); Neutrophil # 7.63 X10^3/uL (2.7-7.7); Neutrophil % 82.7 % (47-70); Platelet Count 151 K/mm3 (150-450); RBC Distribution Width CV 13.3 % (11.6-14.6); RBC Distribution Width SD 45.4 fl (35.1-43.9); Red Blood Count 3.16 M/mm3 (4.2-5.4); White Blood Count 9.2 K/mm3 (4.4-11.0)
[2024-02-25] MEDS: Pantoprazole Sodium 40 MG Tablet PO ×2 (07:41→22:12)
[2024-02-25] MEDS: Tolterodine Tartrate 2 MG CAP.SA PO (07:42)
[2024-02-25] MEDS: Baclofen 10 MG Tablet 5 MG PO ×2 (07:42→22:11)
[2024-02-25] MEDS: oxyCODONE 5 MG Tablet PO ×2 (07:42→16:28)
[2024-02-25 08:19] LABS: Anion Gap 4 (5-15); BUN 6 mg/dL (7-18); BUN/Creat Ratio 7.7 RATIO (10-20); Calcium,Total 7.9 mg/dL (8.5-10.1); Chloride 114 mmol/L (98-107); Creatinine, Serum 0.78 mg/dL (0.55-1.02); EST Glomerular Filtration Rate 77 mL/min (>60); Est Glom Filt Rate - Afr Amer 93 mL/min (>60); Estimated Creatinine Clearance 59.58 ml/min; Glucose 146 mg/dL (74-106); Potassium 3.2 mmol/L (3.5-5.1); Sodium Level 142 mmol/L (136-145)
[2024-02-25] MEDS: Menthol/Lanolin/Calamine/Znox 113 GM Tube 1 APPLIC TOPICAL ×2 (10:07→22:13)
--- NOTE | 2024-02-25 10:16 | RAD_ITS ---
STUDY: X-RAY CHEST REASON FOR EXAM: Female, 69 years old. Hypoxia and tempature TECHNIQUE: Single AP portable view of the chest. COMPARISON: Comparison is made with prior study February 19, 2024. FINDINGS: Blunting of both costophrenic angles with increased markings at the lung bases suggestive of either atelectasis and/or early infiltrates. Normal size heart. A left-sided dual-chamber pacemaker is seen. Normal mediastinum and alex. Normal visualized pulmonary arteries. Normal visualized aortic arch and descending thoracic aorta. There are degenerative changes of the visualized thoracic spine. Normal visualized ribs, clavicles, and shoulders. There is no demonstrated abnormality of the visualized soft tissue structures of the upper abdomen. RAD/Chest 1 View (Portable) IMPRESSION: Blunting of both costophrenic angles with small bilateral pleural effusions with bibasilar atelectasis and/or infiltrates worse at the left lung base. Follow-up recommended. Electronically Signed: Yousif Elena MD at 13:42 EDT ,
--- NOTE | 2024-02-25 10:40 | PN_ITS ---
Subjective Subjective Patient seen and examined. was by her bedside. She says she felt weaker than usual. She is on 2 L of oxygen. She however denies any cough, chest pain, palpitations, dizziness, nausea vomiting or any other symptoms. Review of systems otherwise negative. Objective Data Objective Data Vital Signs: Vital Signs Temp Pulse Resp BP Pulse Ox O2 Del Method O2 Flow Rate 98.3 F 77 14 117/67 99 Nasal Cannula 2 02/25/24 08:00 02/25/24 08:00 02/25/24 08:00 02/25/24 08:00 02/25/24 08:00 02/25/24 08:00 02/25/24 08:00 Oxygen Flow Rate (L/min) 2 Oxygen Delivery Method Nasal Cannula Weight: 128 lb 15.985 oz Body Mass Index (BMI) 19.5 Intake & Output: Intake and Output for Last 24 Hours 02/23/24 02/24/24 02/25/24 23:59 23:59 23:59 Intake Total 4286.0 / 4286.0 736 / 736 112 / 112 Balance 4286.0 / 4286.0 736 / 736 112 / 112 Lab / Micro Data 02/25/24 06:13 02/25/24 06:13 Labs: Laboratory Results - last 24 hr 02/25/24 06:13: WBC 9.2, RBC 3.16 L, Hgb 9.6 L, Hct 29.3 L, MCV 92.7, MCH 30.4, MCHC 32.8, RDW Std Deviation 45.4 H, RDW Coeff of Edita 13.3, Plt Count 151, MPV 10.6, Immature Gran % (Auto) 0.200, Neut % (Auto) 82.7 H, Lymph % (Auto) 10.3 L, [place] % (Auto) 6.3, Eos % (Auto) 0.3, Baso % (Auto) 0.2, Absolute Neuts (auto) 7.6, Absolute Lymphs (auto) 0.95, Nucleated RBC % 0, Sodium 142, Potassium 3.2 L , Chloride 114 H, Carbon Dioxide 24.0, Anion Gap 4 L, BUN 6 L, Creatinine 0.78, Estim Creat Clear Calc 59.58, Est GFR (MDRD) Af Amer 93, Est GFR (MDRD) Non-Af 77, BUN/Creatinine Ratio 7.7 L, Glucose 146 H, Calcium 7.9 L Micro: Microbiology 02/21/24 22:45 Stool Enteric Bacteriology - Final 02/21/24 22:45 Stool C. difficile GDH Antigen & Toxins - Final 02/21/24 22:45 Stool Clostridioides difficile (PCR) - Final 02/21/24 16:20 Stool Stool Occult Blood (EDUARDO) - Final Occult Blood Positive Physical Exam Const alert, oriented x3, no apparent distress, average body habitus and healthy appearing Constitutional Narrative: frail General Appearance: cooperative, well kempt and well developed Orientation / Consciousness: awake, oriented to person, oriented to place and oriented to time HEENT normocephalic, head/scalp atraumatic, hearing grossly normal bilaterally and moist oral mucous membranes Eyes PERRL, EOMs intact bilaterally and conjunctivae normal Neck no lymphadenopathy, supple, no JVD, thyroid normal and no carotid bruits General: trachea midline Lymph Lymphatic: no lymphadenopathy noted and no lymphedema noted Resp normal respiratory effort, normal air movement, no retractions, no use of accessory muscles and clear to auscultation bilaterally Auscultation: Negative for rales, rhonchi or wheezes Cardio regular rate, regular rhythm, S1 normal heart sound, S2 normal heart sound, no murmurs, no rub and no gallops GI normal to inspection, nondistended, normoactive bowel sounds, soft to palpation, non-tender and non-distended Extremity normal capillary refill, no clubbing, cyanosis or edema and no calf tenderness General Extremity: no tenderness to palpation of joints or extremities Skin no rashes or lesions noted General Skin Exam: no breakdown Neuro oriented x3, CN's II-XII intact bilaterally, moves all extremities, no focal motor deficits, no sensory deficits noted and deep tendon reflexes 2+ bilaterally Sensorium / Orientation: awake and alert Motor Exam: strength 5/5 throughout and general weakness Psych thought process normal, cooperative and affect normal Appearance: appropriate Assessment & Plan Assessment/Plan (1) Gastrointestinal bleeding, lower: (2) Colitis: PLAN: Plan #Acute colitis * Was admitted with a complaint of bright red rectal bleeding left lower quadrant abdominal pain. CT of the abdomen and pelvis showed new inflammation along the length of the descending colon concerning for infectious or inflammatory colitis * colonoscopy showed diverticulosis in the rectosigmoid colon, sigmoid colon and hepatic flexure, as well as patchy moderate inflammation in the sigmoid colon, descending colon and at the heaptic and splenic flexure and in the ascending colon due to ischemic colitis. * had mild tenderness with eating but its now better * had a fever overnight. Also now requiring 2 L of oxygen. Will get chest x- ray. * Continue IV Unasyn. * adjust meds based on CXR finding * now on oral diet. * per GI, she has ischemic colitis secondary to severe constipation. * GI on board * on tylenol for fever #Hypotension: resolved.BP meds resumed #Lower GI bleed: Due to acute colitis as above. Resolved #SUJATHA: resolved. #Type 2 diabetes mellitus: lantus resumed. ISS. Accuchecks ACHS #History of ischemic cardiomyopathy, s/p biventricular ICD. #Benign essential hypertension:metoprolol and entresto resumed #History of cerebral palsy: Stable #History of CVA: On aspirin and Plavix on hold due to the GI bleed #Hyperlipidemia: On statin #Anxiety and depression: #Left upper renal pole cyst:per radiologist, no further imaging required. DVT prophylaxis: SCDs. Disposition: awaiting placement Charges/Coding Visit Charges Inpatient E&M: 45869 Subs Hosp L3
[2024-02-25] MEDS: 0.9% Normal Saline (250mL Bag) 250 ML 15 ML IV (12:50)
[2024-02-25] MEDS: Azithromycin 500 MG in Dextrose 5%-Water (250mL Bag) 250 ML 250 MG IV (16:33)
--- NOTE | 2024-02-25 17:23 | CASEMGMT ---
Social Work Per physican, Pt is not medically ready to go to TCU today. Precert is good through midnight on Wednesday. If pt is not ready for dc by this time, new precert will be needed. Green sheet on chart to facilitate a Wednesday discharge. Plan: TCU, can admit on Wednesday only if medically ready EDUARDO Mustafa
[2024-02-25] MEDS: Piperacil/Tazobactam 3.375 GM in 0.9% Normal Saline (50mL MB+) 50 ML IV ×2 (17:47→22:13)
--- NOTE | 2024-02-25 17:49 | PN.GI_ITS ---
Subjective Subjective Patient's appetite is poor and she does have some mild nausea. She denies any chest pain or shortness of breath but does complain of some fatigue. Objective Data Objective Data Vital Signs: Vital Signs Temp Pulse Resp BP Pulse Ox O2 Del Method O2 Flow Rate 98.7 F 95 14 127/56 H 93 Room Air 2 02/25/24 14:06 02/25/24 14:06 02/25/24 14:06 02/25/24 14:06 02/25/24 14:06 02/25/24 14:06 02/25/24 08:00 Oxygen Flow Rate (L/min) 2 Oxygen Delivery Method Room Air Weight: 128 lb 15.985 oz Body Mass Index (BMI) 19.5 Intake & Output: Intake and Output for Last 24 Hours 02/23/24 02/24/24 02/25/24 23:59 23:59 23:59 Intake Total 4286.0 / 4286.0 736 / 736 479 / 479 Balance 4286.0 / 4286.0 736 / 736 479 / 479 Lab / Micro Data 02/25/24 06:13 02/25/24 06:13 Labs: Laboratory Results - last 24 hr 02/25/24 06:13: WBC 9.2, RBC 3.16 L, Hgb 9.6 L, Hct 29.3 L, MCV 92.7, MCH 30.4, MCHC 32.8, RDW Std Deviation 45.4 H, RDW Coeff of Edita 13.3, Plt Count 151, MPV 10.6, Immature Gran % (Auto) 0.200, Neut % (Auto) 82.7 H, Lymph % (Auto) 10.3 L, [place] % (Auto) 6.3, Eos % (Auto) 0.3, Baso % (Auto) 0.2, Absolute Neuts (auto) 7.6, Absolute Lymphs (auto) 0.95, Nucleated RBC % 0, Sodium 142, Potassium 3.2 L , Chloride 114 H, Carbon Dioxide 24.0, Anion Gap 4 L, BUN 6 L, Creatinine 0.78, Estim Creat Clear Calc 59.58, Est GFR (MDRD) Af Amer 93, Est GFR (MDRD) Non-Af 77, BUN/Creatinine Ratio 7.7 L, Glucose 146 H, Calcium 7.9 L Micro: Microbiology 04/01/24 22:45 Stool Enteric Bacteriology - Final 02/21/24 22:45 Stool C. difficile GDH Antigen & Toxins - Final 02/21/24 22:45 Stool Clostridioides difficile (PCR) - Final 02/21/24 16:20 Stool Stool Occult Blood (EDUARDO) - Final Occult Blood Positive Radiography Diagnostic Testing: Radiology Impression Chest X-Ray 02/25/24 10:16 IMPRESSION: Blunting of both costophrenic angles with small bilateral pleural effusions with bibasilar atelectasis and/or infiltrates worse at the left lung base. Follow-up recommended. Electronically Signed: Yousif Elena MD at 13:42 EDT , Physical Exam Const alert, oriented x3, no apparent distress, average body habitus and healthy appearing Constitutional Narrative: frail General Appearance: cooperative, well kempt and well developed Orientation / Consciousness: awake, oriented to person, oriented to place and oriented to time HEENT normocephalic, head/scalp atraumatic, hearing grossly normal bilaterally and moist oral mucous membranes Eyes PERRL, EOMs intact bilaterally and conjunctivae normal Neck no lymphadenopathy, supple, no JVD, thyroid normal and no carotid bruits General: trachea midline Lymph Lymphatic: no lymphadenopathy noted and no lymphedema noted Resp normal respiratory effort, normal air movement, no retractions, no use of accessory muscles and clear to auscultation bilaterally Auscultation: Negative for rales, rhonchi or wheezes Cardio regular rate, regular rhythm, S1 normal heart sound, S2 normal heart sound, no murmurs, no rub and no gallops GI normal to inspection, nondistended, normoactive bowel sounds, soft to palpation, non-tender and non-distended Extremity normal capillary refill, no clubbing, cyanosis or edema and no calf tenderness General Extremity: no tenderness to palpation of joints or extremities Skin no rashes or lesions noted General Skin Exam: no breakdown Neuro oriented x3, CN's II-XII intact bilaterally, moves all extremities, no focal motor deficits, no sensory deficits noted and deep tendon reflexes 2+ bilaterally Sensorium / Orientation: awake and alert Motor Exam: strength 5/5 throughout and general weakness Psych thought process normal, cooperative and affect normal Appearance: appropriate Assessment & Plan Assessment/Plan (1) CVA (cerebral vascular accident): PLAN: Plan 69-year-old with unfortunate recent diagnosis of Recurrent right-sided weakness with spasticity secondary to possible underlying CVA. ? I am not sure why patient developed worsening constipation. Likely is medication side effect. She is on aspirin 81 milligrams a day. As she takes pantoprazole 40 mg twice a day. I think she needs undergo evaluation of her GI tract to see if she has any signs and symptoms of ischemic disease, peptic ulcer disease, chronic changes such as Lukasz's erosions, angiodysplasia, g astroesophageal reflux disease. Findings from colonoscopy Impression: - Rectal prolapse. - Diverticulosis in the recto-sigmoid colon, in the sigmoid colon and at the hepatic flexure. - Patchy moderate inflammation was found in the sigmoid colon, in the descending colon, at the splenic flexure, at the hepatic flexure and in the ascending colon secondary to ischemic colitis. Biopsied. - The examination was otherwise normal. Recommendation: - [facility] patient to [facility] care. - Resume previous diet. - Continue present medications. - Await pathology results. -This is ischemic colitis secondary to severe constipation. The goal is an aggressive bowel regimen. 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 She does take baclofen with narcotics at home and has a history of chronic idiopathic constipation. She was determined to have ischemic colitis in the setting of diverticular disease and mild sigmoid colitis associated with diverticulosis. Recommend to Dulcolax 5 mg twice a day. If she is gone but not gone completely then she will need to add MiraLAX on a daily basis. 02/25/2024-we started on bowel regimen yesterday. And she has been having bowel movements without straining. I cannot explain why her appetite is poor. She does have a history of anxiety and mild depression. At this time she is not on anything for anxiety or depression. I think that could be contributing to some to her fatigue, weakness and poor appetite. Charges/Coding Visit Charges Inpatient E&M: 85263 Subs Hosp L3
[2024-02-25 18:52] LABS: Bacteria 0 SEEN /hpf (None Seen); Mucous, Urine 0 SEEN /hpf (<or=2+); Red Blood Cells-Urine 0 SEEN /hpf (0-5); Squamous Epithelial Cells - UA 0 SEEN /hpf (5-10); White Blood Cells 0 SEEN /hpf (0-5)
[2024-02-25 19:01] LABS: Color, Urine Yellow (Yellow); Glucose, Dipstick 1000 mg/dl (Normal); Ketone-Dipstick 5 mg/dl (Negative); Leukocyte Esterase-Dipstick Negative /ul (Negative); Nitrite-Dipstick Negative (Negative); Occult Blood-Urine Negative /ul (Negative); Protein-Dipstick 15 mg/dl (Negative); Urine Bilirubin Dipstick Negative (Negative); Urine Clarity Clear (Clear); Urine Urobilinogen Normal (Normal)
[2024-02-25] MEDS: Citalopram 20 MG Tablet PO (22:12)
[2024-02-25] MEDS: clonazePAM 1 MG Tablet PO (22:13)
[2024-02-25] MEDS: Atorvastatin Calcium 40 MG Tablet PO (22:14)
[2024-02-26] VITALS (7 sets, daily range): BP systolic 102–114; BP diastolic 53–60; PULSE 67–80; RESP 16–20; TEMP 36.7–38.1; O2SAT 2–96
[2024-02-26] MEDS: oxyCODONE 5 MG Tablet PO (03:06)
[2024-02-26 05:51] LABS: Absolute Lymphocyte Count 2.07 X10^3/uL (0.83-4.51); Absolute Neutrophil Count 10.2 X10^3/uL (2.0-7.7); Basophil# 0.04 X10^3/uL; Basophil% 0.3 % (0-1); Eosinophil# 0.03 X10^3/uL; Eosinophils% 0.2 % (0-5); Hematocrit 28.3 % (37-47); Hemoglobin 9.3 g/dL (12.0-15.0); Lymphocyte # 2.07 X10^3/ul (0.83-4.51); Lymphocyte % 15.8 % (19-41); Mean Corp Hgb Conc 32.9 g/dL (32-36); Mean Corpuscular Hgb 30.2 pg (27.0-32.0); Mean Corpuscular Volume 91.9 fL (81-99); Mean Platelet Vol. 10.4 fl (6.2-12.0); Monocyte# 0.75 X10^3/uL; Monocyte% 5.7 % (0-10); NRBC Flagged by Analyzer 0 % (0-5); Neutrophil # 10.19 X10^3/uL (2.7-7.7); Neutrophil % 77.6 % (47-70); Platelet Count 130 K/mm3 (150-450); RBC Distribution Width CV 13.8 % (11.6-14.6); RBC Distribution Width SD 46.8 fl (35.1-43.9); Red Blood Count 3.08 M/mm3 (4.2-5.4); White Blood Count 13.1 K/mm3 (4.4-11.0)
[2024-02-26] MEDS: Piperacil/Tazobactam 3.375 GM in 0.9% Normal Saline (50mL MB+) 50 ML IV ×3 (06:02→21:42)
[2024-02-26 06:23] LABS: Anion Gap 5 (5-15); BUN 7 mg/dL (7-18); BUN/Creat Ratio 8.2 RATIO (10-20); Calcium,Total 7.6 mg/dL (8.5-10.1); Chloride 112 mmol/L (98-107); Creatinine, Serum 0.85 mg/dL (0.55-1.02); EST Glomerular Filtration Rate 70 mL/min (>60); Est Glom Filt Rate - Afr Amer 85 mL/min (>60); Estimated Creatinine Clearance 56.07 ml/min; Glucose 145 mg/dL (74-106); Potassium 2.7 mmol/L (3.5-5.1); Sodium Level 142 mmol/L (136-145)
[2024-02-26 06:46] LABS: Magnesium 1.6 mg/dL (1.6-2.6)
[2024-02-26] MEDS: Potassium Chloride Oral Tablet 20 MEQ 60 MEQ PO (06:51)
--- NOTE | 2024-02-26 09:09 | CT_ITS ---
STUDY: CT CHEST, ABDOMEN T PELVIS WITH CONTRAST REASON FOR EXAM: Female, 69 years old. Chest and back pain RADIATION DOSAGE (If Supplied By Facility): CTDIvol = ( 13.91 ) mGy, DLP = ( 871.24 ) mGycm TECHNIQUE: Transaxial imaging was performed following intravenous administration of Oral and amp;amp;amp; IV Gastrografin and amp;amp;amp; 100mL Isovue-370. Individualized dose optimization techniques were used for this CT. COMPARISON: 02/21/2024 FINDINGS: Satisfactory appearance of a left pacemaker CHEST Lungs are expanded with interstitial edema in both lung tirado and free-flowing bilateral pleural effusions and bibasilar atelectasis new since the previous study. No organized infiltrate or suspicious noncalcified mass or nodule. Normal heart and pericardium. Pacer leads seen along the base of the heart. There are calcified coronary vessels. No suspicious axillary, mediastinal or perihilar adenopathy. . Normal unenhanced pulmonary arteries. Normal aorta arch and descending thoracic aorta. Degenerative changes throughout the thoracic spine. ABDOMEN Normal liver. There are surgical clips in the gallbladder fossa consistent with a prior cholecystectomy. Normal spleen. Normal pancreas. Normal bilateral adrenal glands. No obstructive uropathy, or suspicious solid renal lesion, stable 4.6 centimeter parapelvic cyst in the left kidney. Normal visualized stomach. Small bowel loops are unremarkable. The ascending and majority of the transverse colon are unremarkable, there is stable submucosal thickening and edema noted in the distal transverse throughout the descending and sigmoid colon consistent with a diffuse colitis. There is pericolonic inflammatory stranding, without perforation or abscess. There are a few scattered diverticula. There is non-visualization of the appendix. There is diffuse atherosclerotic calcification of the abdominal aorta, without a demonstrated aneurysm. Normal inferior vena cava. Normal retroperitoneum. Normal abdominal wall. PELVIS Normal urinary bladder. The uterus is present, the endometrium cannot be accurately evaluated with CT. There is no suspicious cystic mass or free fluid. There is no pelvic lymphadenopathy or mass lesion. There is diffuse atherosclerotic calcification of the pelvic arteries. There are diffuse degenerative changes of the visualized lumbar spine, and pelvis. CT/CT Chest, Abd, Pel w/Contrast IMPRESSION: Persistent submucosal thickening in the distal transverse, throughout the descending and sigmoid colon consistent with a diffuse colitis. This is likely infectious or inflammatory. There is pericolonic inflammatory stranding but no perforation or abscess noted Stable 4.6 cm parapelvic cyst in the left kidney. No specific follow-up needed New free-flowing bilateral pleural effusions with bibasilar atelectasis Degenerative bony changes Diffuse atherosclerosis Electronically Signed: Shan Mckeon MD at 13:20 EDT ,
--- NOTE | 2024-02-26 09:12 | PN_ITS ---
Subjective Subjective Patient seen and examined. was by her bedside. Patient continues to have lower abdominal pain. Her white count is down to 13.1 today. Potassium is also 2.7. She is having diarrhea. She also continues to spike a fever. Review of systems otherwise negative. Objective Data Objective Data Vital Signs: Vital Signs Temp Pulse Resp BP Pulse Ox O2 Del Method O2 Flow Rate 99.7 F H 71 20 H 102/54 L 94 Nasal Cannula 2 02/26/24 02:59 02/26/24 02:59 02/26/24 02:59 02/26/24 02:59 02/26/24 07:35 02/26/24 07:35 02/26/24 07:35 Oxygen Flow Rate (L/min) 2 Oxygen Delivery Method Nasal Cannula Weight: 128 lb 15.985 oz Body Mass Index (BMI) 19.5 Intake & Output: Intake and Output for Last 24 Hours 02/24/24 02/25/24 02/26/24 23:59 23:59 23:59 Intake Total 736 / 736 629 / 629 300 / 300 Balance 736 / 736 629 / 629 300 / 300 Lab / Micro Data 02/26/24 05:40 02/26/24 05:40 Labs: Laboratory Results - last 24 hr 02/25/24 18:35: Urine Color Yellow, Urine Clarity Clear, Urine pH 5.0, Ur Specific [place] 1.020, Urine Protein 15 H, Urine Glucose (UA) 1000 H, Urine Ketones 5 H, Urine Occult Blood Negative, Urine Nitrite Negative, Urine Bilirubin Negative, Urine Urobilinogen Normal, Ur Leukocyte Esterase Negative, Urine RBC 0 SEEN, Urine WBC 0 SEEN, Ur Squamous Epith Cells 0 SEEN, Urine Bacteria 0 SEEN, Urine Mucus 0 SEEN 02/26/24 05:40: WBC 13.1 H, RBC 3.08 L, Hgb 9.3 L, Hct 28.3 L, MCV 91.9, MCH 30.2, MCHC 32.9, RDW Std Deviation 46.8 H, RDW Coeff of Edita 13.8, Plt Count 130 L, MPV 10.4, Immature Gran % (Auto) 0.400, Neut % (Auto) 77.6 H, Lymph % (Auto) 15.8 L, [place] % (Auto) 5.7, Eos % (Auto) 0.2, Baso % (Auto) 0.3, Absolute Neuts (auto) 10.2 H, Absolute Lymphs (auto) 2.07, Nucleated RBC % 0, Sodium 142, Potassium 2.7 L*, Chloride 112 H, Carbon Dioxide 25.0, Anion Gap 5, BUN 7, Creatinine 0.85, Estim Creat Clear Calc 56.07, Est GFR (MDRD) Af Amer 85, Est GFR (MDRD) Non-Af 70, BUN/Creatinine Ratio 8.2 L, Glucose 145 H, Calcium 7.6 L, Magnesium 1.6 Micro: Microbiology 02/25/24 18:35 Urine, Clean Catch Legionella Antigen - Final 02/25/24 18:35 Urine, Clean Catch Streptococcus pneumoniae Antigen (M - Final 02/21/24 22:45 Stool Enteric Bacteriology - Final 02/21/24 22:45 Stool C. difficile GDH Antigen & Toxins - Final 02/21/24 22:45 Stool Clostridioides difficile (PCR) - Final 02/21/24 16:20 Stool Stool Occult Blood (EDUARDO) - Final Occult Blood Positive Radiography Diagnostic Testing: Radiology Impression Chest X-Ray 02/25/24 10:16 IMPRESSION: Blunting of both costophrenic angles with small bilateral pleural effusions with bibasilar atelectasis and/or infiltrates worse at the left lung base. Follow-up recommended. Electronically Signed: Yousif Elena MD at 13:42 EDT Reading Location ID and State: [address] [place] [address] , Service support , Physical Exam Const alert, oriented x3, no apparent distress and average body habitus Constitutional Narrative: frail, in moderate discomfort due to pain General Appearance: cooperative, well kempt and well developed Orientation / Consciousness: awake, oriented to person, oriented to place and oriented to time HEENT normocephalic, head/scalp atraumatic, hearing grossly normal bilaterally and moist oral mucous membranes Eyes PERRL, EOMs intact bilaterally and conjunctivae normal Neck no lymphadenopathy, supple, no JVD, thyroid normal and no carotid bruits General: trachea midline Lymph Lymphatic: no lymphadenopathy noted and no lymphedema noted Resp normal respiratory effort, normal air movement, no retractions, no use of accessory muscles and clear to auscultation bilaterally Auscultation: Negative for rales, rhonchi or wheezes Cardio regular rate, regular rhythm, S1 normal heart sound, S2 normal heart sound, no murmurs, no rub and no gallops GI normal to inspection, nondistended, normoactive bowel sounds GI Narrative: moderatel lower abdominal tenderness, no guarding or rebound tenderness Extremity normal capillary refill, no clubbing, cyanosis or edema and no calf tenderness General Extremity: no tenderness to palpation of joints or extremities Skin no rashes or lesions noted General Skin Exam: no breakdown Neuro oriented x3, CN's II-XII intact bilaterally, moves all extremities, no focal motor deficits, no sensory deficits noted and deep tendon reflexes 2+ bilaterally Neuro Narrative: Patient has a mild speech impediment Sensorium / Orientation: awake and alert Motor Exam: strength 5/5 throughout and general weakness Psych thought process normal, cooperative and affect normal Appearance: appropriate Assessment & Plan Assessment/Plan (1) Gastrointestinal bleeding, lower: (2) Colitis: PLAN: Plan #Acute colitis * Was admitted with a complaint of bright red rectal bleeding left lower quadrant abdominal pain. CT of the abdomen and pelvis showed new inflammation along the length of the descending colon concerning for infectious or inflammatory colitis * colonoscopy showed diverticulosis in the rectosigmoid colon, sigmoid colon and hepatic flexure, as well as patchy moderate inflammation in the sigmoid colon, descending colon and at the heaptic and splenic flexure and in the ascending colon due to ischemic colitis. * continues to have abdominal pain today. Has also been spiking a fever * will order CT of the chest, abdomen and pelvis to evaluate for source of fever * antibiotics broadened to IV vancomycin, zosyn and azithromycin * WBC has trended up to 13.1 today. * Blood cultures and urine cultures ordered. Urine for strep and Legionella negative. * Chest x-ray showed atelectasis versus infiltrates worse on the left lower lung base with blunting of costophrenic angles and small bilateral pleural effusions. * GI on board. Remains on Tylenol. * Will keep n.p.o. in light of abdominal pain and diarrhea as well as fever. * #Hypotension: resolved.BP #Lower GI bleed: Due to acute colitis as above. Resolved #SUJATHA: resolved. #Type 2 diabetes mellitus: lantus resumed. ISS. Accuchecks ACHS #History of ischemic cardiomyopathy, s/p biventricular ICD. #Benign essential hypertension:metoprolol and entresto resumed #History of cerebral palsy: Stable #History of CVA: On aspirin and Plavix on hold due to the GI bleed #Hyperlipidemia: On statin #Anxiety and depression: #Left upper renal pole cyst:per radiologist, no further imaging required. DVT prophylaxis: SCDs. Disposition: awaiting placement Charges/Coding Visit Charges Inpatient E&M: 98832 [facility] Hosp L3
[2024-02-26] MEDS: Potassium Chloride 10mEq/100mL 10 MEQ/100 ML IV.SOLN. 100 MEQ IV BOLUS ×4 (09:33→14:20)
--- NOTE | 2024-02-26 09:42 | NURSING ---
CT oral contrast sent to unit-pt and spouse informed and she is taking it
[2024-02-26] MEDS: Vancomycin HCl 1,500 MG in 0.9% Normal Saline (500mL Bag) 500 ML 250 MG IV (09:57)
[2024-02-26] MEDS: Menthol/Lanolin/Calamine/Znox 113 GM Tube 1 APPLIC TOPICAL ×2 (10:06→21:47)
--- NOTE | 2024-02-26 11:26 | PCM.RX.CS ---
Consult Antibiotic Management Pharmacy has been consulted to manage selected antibiotic: Vancomycin Type of Intervention Type of Consult: New start Suspected Infection Suspected Infection: Other (Ischemic colitis) Prior Doses of Antibiotics Prior Doses of Antibiotics Received/Current Regimen: Received loading dose 1500mg iv x 1 4.6.24 @1000 Labs Labs: Sodium 142 mmol/L (136-145) 02/26/24 05:40 Potassium 2.7 mmol/L (3.5-5.1) L* 02/26/24 05:40 Chloride 112 mmol/L (98-107) H 02/26/24 05:40 Carbon Dioxide 25.0 mmol/L (21.0-32.0) 02/26/24 05:40 Anion Gap 5 (5-15) 02/26/24 05:40 BUN 7 mg/dL (7-18) 02/26/24 05:40 Creatinine 0.85 mg/dL (0.55-1.02) 02/26/24 05:40 Est GFR (MDRD) Af Amer 85 mL/min (>60) 02/26/24 05:40 Est GFR (MDRD) Non-Af 70 mL/min (>60) 02/26/24 05:40 BUN/Creatinine Ratio 8.2 RATIO (10-20) L 02/26/24 05:40 Glucose 145 mg/dL (74-106) H 02/26/24 05:40 Microbiology Microbiology: Microbiology 02/25/24 18:35 Urine, Clean Catch Legionella Antigen - Final 02/25/24 18:35 Urine, Clean Catch Streptococcus pneumoniae Antigen (M - Final 02/21/24 22:45 Stool Enteric Bacteriology - Final 02/21/24 22:45 Stool C. difficile GDH Antigen & Toxins - Final 02/21/24 22:45 Stool Clostridioides difficile (PCR) - Final 02/21/24 16:20 Stool Stool Occult Blood (EDUARDO) - Final Occult Blood Positive Dosing Weight Weight used for dosin.5 kg Estimated Creatinine Clearance Estimated Creatinine Clearance: 56ml/min Goal Trough Goal Trough: 15-20 mcg/mL Pharmacy Plan for Drug Dosing Pharmacy Plan for Drug Dosing: Recommend starting dose of 500mg iv q12h with trough before 4th total dose. Pharmacy Service will continue to monitor and adjust dosing as required. Follow-Up Labs Follow-Up Labs: Trough: Vancomycin (4.7.24 @2130)
[2024-02-26] MEDS: Pantoprazole Sodium 40 MG Tablet PO ×2 (11:45→21:47)
--- NOTE | 2024-02-26 12:00 | NURSING ---
pt to x-ray via bed after drinking contrast as Rx
[2024-02-26] MEDS: 0.9% Normal Saline (1000mL) 1,000 ML 150 ML IV ×2 (14:22→21:40)
--- NOTE | 2024-02-26 15:33 | EX.PCM.PN.GI ---
Subjective Subjective She underwent CT scan abdomen pelvis that displayed : persistent submucosal thickening in the distal transverse, throughout the descending and sigmoid colon consistent with a diffuse colitis. This is likely infectious or inflammatory. There is pericolonic inflammatory stranding but no perforation or abscess noted Stable 4.6 cm parapelvic cyst in the left kidney. No specific follow-up needed New free-flowing bilateral pleural effusions with bibasilar atelectasis Degenerative bony changes Diffuse atherosclerosis Biopsies from her recent colonoscopy did show diffuse ischemic changes. There was no sign of compromised blood flow ongoing on her CTA that she had today. Objective Data Objective Data Vital Signs: Vital Signs Temp Pulse Resp BP Pulse Ox O2 Del Method O2 Flow Rate 99.5 F H 80 18 107/60 95 Nasal Cannula 2 02/26/24 11:49 02/26/24 11:49 02/26/24 11:49 02/26/24 11:49 02/26/24 11:49 02/26/24 11:49 02/26/24 11:49 Oxygen Flow Rate (L/min) 2 Oxygen Delivery Method Nasal Cannula Weight: 128 lb 15.985 oz Body Mass Index (BMI) 19.5 Intake & Output: Intake and Output for Last 24 Hours 02/24/24 02/25/24 02/26/24 23:59 23:59 23:59 Intake Total 736 / 736 629 / 629 1216.33 / 1216.33 Balance 736 / 736 629 / 629 1216.33 / 1216.33 Lab / Micro Data 02/26/24 05:40 02/26/24 05:40 Labs: Laboratory Results - last 24 hr 02/25/24 18:35: Urine Color Yellow, Urine Clarity Clear, Urine pH 5.0, Ur Specific [place] 1.020, Urine Protein 15 H, Urine Glucose (UA) 1000 H, Urine Ketones 5 H, Urine Occult Blood Negative, Urine Nitrite Negative, Urine Bilirubin Negative, Urine Urobilinogen Normal, Ur Leukocyte Esterase Negative, Urine RBC 0 SEEN, Urine WBC 0 SEEN, Ur Squamous Epith Cells 0 SEEN, Urine Bacteria 0 SEEN, Urine Mucus 0 SEEN 02/26/24 05:40: WBC 13.1 H, RBC 3.08 L, Hgb 9.3 L, Hct 28.3 L, MCV 91.9, MCH 30.2, MCHC 32.9, RDW Std Deviation 46.8 H, RDW Coeff of Edita 13.8, Plt Count 130 L, MPV 10.4, Immature Gran % (Auto) 0.400, Neut % (Auto) 77.6 H, Lymph % (Auto) 15.8 L, [place] % (Auto) 5.7, Eos % (Auto) 0.2, Baso % (Auto) 0.3, Absolute Neuts (auto) 10.2 H, Absolute Lymphs (auto) 2.07, Nucleated RBC % 0, Sodium 142, Potassium 2.7 L*, Chloride 112 H, Carbon Dioxide 25.0, Anion Gap 5, BUN 7, Creatinine 0.85, Estim Creat Clear Calc 56.07, Est GFR (MDRD) Af Amer 85, Est GFR (MDRD) Non-Af 70, BUN/Creatinine Ratio 8.2 L, Glucose 145 H, Calcium 7.6 L, Magnesium 1.6 02/26/24 13:15: Sodium Cancelled, Potassium Cancelled, Chloride Cancelled, Carbon Dioxide Cancelled, Anion Gap Cancelled, BUN Cancelled, Creatinine Cancelled, Estim Creat Clear Calc Cancelled, Est GFR (MDRD) Af Amer Cancelled, Est GFR (MDRD) Non-Af Cancelled, BUN/Creatinine Ratio Cancelled, Glucose Cancelled, Calcium Cancelled Micro: Microbiology 02/25/24 18:35 Urine, Clean Catch Legionella Antigen - Final 02/25/24 18:35 Urine, Clean Catch Streptococcus pneumoniae Antigen (M - Final 02/21/24 22:45 Stool Enteric Bacteriology - Final 02/21/24 22:45 Stool C. difficile GDH Antigen & Toxins - Final 02/21/24 22:45 Stool Clostridioides difficile (PCR) - Final 02/21/24 16:20 Stool Stool Occult Blood (EDUARDO) - Final Occult Blood Positive Radiography Diagnostic Testing: Radiology Impression Chest/Abdomen/Pelvis CT 02/26/24 09:09 IMPRESSION: Persistent submucosal thickening in the distal transverse, throughout the descending and sigmoid colon consistent with a diffuse colitis. This is likely infectious or inflammatory. There is pericolonic inflammatory stranding but no perforation or abscess noted Stable 4.6 cm parapelvic cyst in the left kidney. No specific follow-up needed New free-flowing bilateral pleural effusions with bibasilar atelectasis Degenerative bony changes Diffuse atherosclerosis Electronically Signed: Shan Mckeon MD at 13:20 EDT , Physical Exam Const alert, oriented x3, no apparent distress and average body habitus Constitutional Narrative: frail, in moderate discomfort due to pain General Appearance: cooperative, well kempt and well developed Orientation / Consciousness: awake, oriented to person, oriented to place and oriented to time HEENT normocephalic, head/scalp atraumatic, hearing grossly normal bilaterally and moist oral mucous membranes Eyes PERRL, EOMs intact bilaterally and conjunctivae normal Neck no lymphadenopathy, supple, no JVD, thyroid normal and no carotid bruits General: trachea midline Lymph Lymphatic: no lymphadenopathy noted and no lymphedema noted Resp normal respiratory effort, normal air movement, no retractions, no use of accessory muscles and clear to auscultation bilaterally Auscultation: Negative for rales, rhonchi or wheezes Cardio regular rate, regular rhythm, S1 normal heart sound, S2 normal heart sound, no murmurs, no rub and no gallops GI normal to inspection, nondistended, normoactive bowel sounds GI Narrative: moderatel lower abdominal tenderness, no guarding or rebound tenderness Extremity normal capillary refill, no clubbing, cyanosis or edema and no calf tenderness General Extremity: no tenderness to palpation of joints or extremities Skin no rashes or lesions noted General Skin Exam: no breakdown Neuro oriented x3, CN's II-XII intact bilaterally, moves all extremities, no focal motor deficits, no sensory deficits noted and deep tendon reflexes 2+ bilaterally Neuro Narrative: Patient has a mild speech impediment Sensorium / Orientation: awake and alert Motor Exam: strength 5/5 throughout and general weakness Psych thought process normal, cooperative and affect normal Appearance: appropriate Assessment & Plan Assessment/Plan (1) CVA (cerebral vascular accident): PLAN: Plan 69-year-old with unfortunate recent diagnosis of Recurrent right-sided weakness with spasticity secondary to possible underlying CVA. ? I am not sure why patient developed worsening constipation. Likely is medication side effect. She is on aspirin 81 milligrams a day. As she takes pantoprazole 40 mg twice a day. I think she needs undergo evaluation of her GI tract to see if she has any signs and symptoms of ischemic disease, peptic ulcer disease, chronic changes such as Lukasz's erosions, angiodysplasia, gastroesophageal reflux disease. Findings from colonoscopy Impression: - Rectal prolapse. - Diverticulosis in the recto-sigmoid colon, in the sigmoid colon and at the hepatic flexure. - Patchy moderate inflammation was found in the sigmoid colon, in the descending colon, at the splenic flexure, at the hepatic flexure and in the ascending colon secondary to ischemic colitis. Biopsied. - The examination was otherwise normal. Recommendation: - Return patient to [facility] for [facility] care. - Resume previous diet. - Continue present medications. - Await pathology results. -This is ischemic colitis secondary to severe constipation. The goal is an aggressive bowel regimen. 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 She does take baclofen with narcotics at home and has a history of chronic idiopathic constipation. She was determined to have ischemic colitis in the setting of diverticular disease and mild sigmoid colitis associated with diverticulosis. Recommend to Dulcolax 5 mg twice a day. If she is gone but not gone completely then she will need to add MiraLAX on a daily basis. 02/25/2024-we started on bowel regimen yesterday. And she has been having bowel movements without straining. I cannot explain why her appetite is poor. She does have a history of anxiety and mild depression. At this time she is not on anything for anxiety or depression. I think that could be contributing to some to her fatigue, weakness and poor appetite. 02/26/2024-I still think that she is exhibiting signs of cramping, abdominal pain and diarrhea resulting in ischemic colitis. Her stools are PCR positive for toxigenic C. difficile but there antigen negative for C. difficile. I will start her on empiric oral vancomycin. She should also get started on a probiotic and low-dose budesonide therapy for the intermittent colitis that seen on imaging. She also needs to be on scheduled Bentyl for the cramping.
--- NOTE | 2024-02-26 16:57 | NURSING ---
K+supplements infused-lab notified to come and draw BMP
[2024-02-26] MEDS: Budesonide 3 MG CAPSULE.EC 9 MG PO (17:05)
[2024-02-26] MEDS: Dicyclomine 20 MG/2 ML Vial IM (17:05)
[2024-02-26] MEDS: Vancomycin 125 MG/5 ML Susp PO.SYRINGE PO (17:08)
[2024-02-26 17:42] LABS: Anion Gap 2 (5-15); BUN 8 mg/dL (7-18); BUN/Creat Ratio 10.7 RATIO (10-20); Calcium,Total 7.7 mg/dL (8.5-10.1); Chloride 113 mmol/L (98-107); Creatinine, Serum 0.75 mg/dL (0.55-1.02); EST Glomerular Filtration Rate 81 mL/min (>60); Est Glom Filt Rate - Afr Amer 99 mL/min (>60); Estimated Creatinine Clearance 59.58 ml/min; Glucose 145 mg/dL (74-106); Potassium 3.9 mmol/L (3.5-5.1); Sodium Level 140 mmol/L (136-145)
[2024-02-26] MEDS: Baclofen 10 MG Tablet 5 MG PO (17:44)
[2024-02-26] MEDS: Vancomycin IV 500 MG/100 ML BAG 100 MG IV (21:40)
[2024-02-26] MEDS: clonazePAM 1 MG Tablet PO (21:46)
[2024-02-26] MEDS: Bisacodyl 5 MG Tablet PO (21:46)
[2024-02-26] MEDS: Atorvastatin Calcium 40 MG Tablet PO (21:47)
[2024-02-26] MEDS: Citalopram 20 MG Tablet PO (21:47)
[2024-02-26] MEDS: 0.9% Saline Lock 10 ML Syringe IV (21:55)
[2024-02-27] MEDS: Vancomycin 125 MG/5 ML Susp PO.SYRINGE PO ×5 (01:35→23:05)
[2024-02-27 03:15] VITALS: BP 109/53; PULSE 72; RESP 16; TEMP 36.9; O2SAT 98
[2024-02-27] MEDS: 0.9% Normal Saline (1000mL) 1,000 ML 150 ML IV (05:13)
[2024-02-27] MEDS: Piperacil/Tazobactam 3.375 GM in 0.9% Normal Saline (50mL MB+) 50 ML IV ×3 (06:14→21:04)
[2024-02-27] MEDS: Dicyclomine 10 MG Capsule 20 MG PO ×3 (06:14→18:47)
[2024-02-27 07:19] LABS: Absolute Lymphocyte Count 1.38 X10^3/uL (0.83-4.51); Absolute Neutrophil Count 4.3 X10^3/uL (2.0-7.7); Basophil# 0.01 X10^3/uL; Basophil% 0.2 % (0-1); Eosinophil# 0.09 X10^3/uL; Eosinophils% 1.5 % (0-5); Hematocrit 25.6 % (37-47); Hemoglobin 8.1 g/dL (12.0-15.0); Lymphocyte # 1.38 X10^3/ul (0.83-4.51); Lymphocyte % 22.4 % (19-41); Mean Corp Hgb Conc 31.6 g/dL (32-36); Mean Corpuscular Hgb 29.9 pg (27.0-32.0); Mean Corpuscular Volume 94.5 fL (81-99); Mean Platelet Vol. 10.6 fl (6.2-12.0); Monocyte# 0.38 X10^3/uL; Monocyte% 6.2 % (0-10); NRBC Flagged by Analyzer 0 % (0-5); Neutrophil # 4.29 X10^3/uL (2.7-7.7); Neutrophil % 69.4 % (47-70); Platelet Count 117 K/mm3 (150-450); RBC Distribution Width CV 14.3 % (11.6-14.6); RBC Distribution Width SD 48.5 fl (35.1-43.9); Red Blood Count 2.71 M/mm3 (4.2-5.4); White Blood Count 6.2 K/mm3 (4.4-11.0)
[2024-02-27 07:27] VITALS: O2SAT 95
[2024-02-27 07:58] LABS: Anion Gap 2 (5-15); BUN 6 mg/dL (7-18); BUN/Creat Ratio 9.1 RATIO (10-20); Chloride 118 mmol/L (98-107); Creatinine, Serum 0.66 mg/dL (0.55-1.02); EST Glomerular Filtration Rate 94 mL/min (>60); Est Glom Filt Rate - Afr Amer 114 mL/min (>60); Estimated Creatinine Clearance 59.58 ml/min; Glucose 117 mg/dL (74-106); Potassium 3.7 mmol/L (3.5-5.1); Sodium Level 144 mmol/L (136-145)
--- NOTE | 2024-02-27 08:39 | PN_ITS ---
Subjective Subjective Patient seen and examined. She says her abdominal pain has improved slightly and rates it at between 6-7/10. She thinks it has improved since she was made n.p.o. yesterday. She denies any nausea vomiting or any other symptoms. Review of systems otherwise negative. Objective Data Objective Data Vital Signs: Vital Signs Temp Pulse Resp BP Pulse Ox O2 Del Method O2 Flow Rate 98.4 F 72 16 109/53 L 98 Room Air 2 02/27/24 03:15 02/27/24 03:15 02/27/24 03:15 02/27/24 03:15 02/27/24 03:15 02/27/24 04:00 02/26/24 22:00 Oxygen Flow Rate (L/min) 2 Oxygen Delivery Method Room Air Weight: 128 lb 15.985 oz Body Mass Index (BMI) 19.5 Intake & Output: Intake and Output for Last 24 Hours 02/25/24 02/26/24 02/27/24 23:59 23:59 23:59 Intake Total 629 / 629 4167.33 / 4167.33 1050 / 1050 Output Total 550 / 550 Balance 629 / 629 4167.33 / 4067.33 500 / 500 Lab / Micro Data 02/27/24 06:07 02/27/24 06:07 Labs: Laboratory Results - last 24 hr 02/26/24 13:15: Sodium Cancelled, Potassium Cancelled, Chloride Cancelled, Carbon Dioxide Cancelled, Anion Gap Cancelled, BUN Cancelled, Creatinine Cancelled, Estim Creat Clear Calc Cancelled, Est GFR (MDRD) Af Amer Cancelled, Est GFR (MDRD) Non-Af Cancelled, BUN/Creatinine Ratio Cancelled, Glucose Cancelled, Calcium Cancelled 02/26/24 17:10: Sodium 140, Potassium 3.9, Chloride 113 H, Carbon Dioxide 25.0, Anion Gap 2 L, BUN 8, Creatinine 0.75, Estim Creat Clear Calc 59.58, Est GFR (MDRD) Af Amer 99, Est GFR (MDRD) Non-Af 81, BUN/Creatinine Ratio 10.7, Glucose 145 H, Calcium 7.7 L 02/27/24 06:07: WBC 6.2, RBC 2.71 L, Hgb 8.1 L, Hct 25.6 L, MCV 94.5, MCH 29.9, MCHC 31.6 L, RDW Std Deviation 48.5 H, RDW Coeff of Edita 14.3, Plt Count 117 L, MPV 10.6, Immature Gran % (Auto) 0.300, Neut % (Auto) 69.4, Lymph % (Auto) 22.4, [place] % (Auto) 6.2, Eos % (Auto) 1.5, Baso % (Auto) 0.2, Absolute Neuts (auto) 4.3, Absolute Lymphs (auto) 1.38, Nucleated RBC % 0, Sodium 144, Potassium 3.7, Chloride 118 H, Carbon Dioxide 24.0, Anion Gap 2 L, BUN 6 L, Creatinine 0.66, Estim Creat Clear Calc 59.58, Est GFR (MDRD) Af Amer 114, Est GFR (MDRD) Non-Af 94, BUN/Creatinine Ratio 9.1 L, Glucose 117 H, Calcium 8.0 L Micro: Microbiology 02/25/24 18:35 Urine, Clean Catch Legionella Antigen - Final 02/25/24 18:35 Urine, Clean Catch Streptococcus pneumoniae Antigen (M - Final 02/21/24 22:45 Stool Enteric Bacteriology - Final 02/21/24 22:45 Stool C. difficile GDH Antigen & Toxins - Final 02/21/24 22:45 Stool Clostridioides difficile (PCR) - Final 02/21/24 16:20 Stool Stool Occult Blood (EDUARDO) - Final Occult Blood Positive Radiography Diagnostic Testing: Radiology Impression Chest/Abdomen/Pelvis CT 02/26/24 09:09 IMPRESSION: Persistent submucosal thickening in the distal transverse, throughout the descending and sigmoid colon consistent with a diffuse colitis. This is likely infectious or inflammatory. There is pericolonic inflammatory stranding but no perforation or abscess noted Stable 4.6 cm parapelvic cyst in the left kidney. No specific follow-up needed New free-flowing bilateral pleural effusions with bibasilar atelectasis Degenerative bony changes Diffuse atherosclerosis Electronically Signed: Shan Mckeon MD at 13:20 EDT , Physical Exam Const alert, oriented x3, no apparent distress and average body habitus Constitutional Narrative: frail, in minimal discomfort today. General Appearance: cooperative, well kempt and well developed Orientation / Consciousness: awake, oriented to person and oriented to time HEENT normocephalic, head/scalp atraumatic and hearing grossly normal bilaterally Mouth: dry mucous membranes Eyes PERRL, EOMs intact bilaterally and conjunctivae normal Neck no lymphadenopathy, supple, no JVD, thyroid normal and no carotid bruits General: trachea midline Lymph Lymphatic: no lymphadenopathy noted and no lymphedema noted Resp normal respiratory effort, normal air movement, no retractions, no use of accessory muscles and clear to auscultation bilaterally Auscultation: Negative for rales, rhonchi or wheezes Cardio regular rate, regular rhythm, S1 normal heart sound, S2 normal heart sound, no murmurs, no rub and no gallops GI normal to inspection, nondistended, normoactive bowel sounds, soft to palpation, non-tender and non-distended GI Narrative: mild lower abdominal tenderness, no guarding or rebound tenderness Extremity normal capillary refill, no clubbing, cyanosis or edema and no calf tenderness General Extremity: no tenderness to palpation of joints or extremities Skin no rashes or lesions noted General Skin Exam: no breakdown Neuro oriented x3, CN's II-XII intact bilaterally, moves all extremities, no focal motor deficits, no sensory deficits noted and deep tendon reflexes 2+ bilaterally Sensorium / Orientation: awake and alert Motor Exam: strength 5/5 throughout and general weakness Psych thought process normal, cooperative and affect normal Appearance: appropriate Assessment & Plan Assessment/Plan (1) Gastrointestinal bleeding, lower: (2) Colitis: PLAN: Plan #Acute colitis * Was admitted with a complaint of bright red rectal bleeding left lower quadrant abdominal pain. CT of the abdomen and pelvis showed new inflammation along the length of the descending colon concerning for infectious or inflammatory colitis * colonoscopy showed diverticulosis in the rectosigmoid colon, sigmoid colon and hepatic flexure, as well as patchy moderate inflammation in the sigmoid colon, descending colon and at the heaptic and splenic flexure and in the ascending colon due to ischemic colitis. * Antibiotics broadened to vancomycin and Zosyn after she continued to have a fever. Fever has now resolved. * CT of the chest abdomen and pelvis showed persistent BX submucosal thickening in the distal transverse, throughout the descending and sigmoid colon consistent with a diffuse colitis with pericolonic inflammatory stranding but no perforation or abscess and new free-flowing bilateral pleural effusions with bibasilar atelectasis. * Continuing IV vancomycin and Zosyn. White cell count is trended down from 13.1 yesterday to 6. * GI on board. Keep continue patient on n.p.o. status * continue hydration with iVF. O avoid hypotension as it can worsen ischemic colitis * #Bilateral pleural effusions * chest CT shwoed bilateral free flowing pleural effusions. * patient currently on room air. Had previously been on 2 L of oxygen. * Per records, and cumulative positive fluid balance by 14,405 mL. I doubt this is acute rate as patient does have a Juarez catheter in situ and has been using the bathroom on her own which a urine is not adequately being measured. * Will consider diuresis if patient requires increasing oxygen amounts. * check BNP. * Echo from September 2023 showed EF of 55% and no evidence of diastolic dysfunction with no regional wall motion abnormality seen. #Hypotension: resolved. #Lower GI bleed: Due to acute colitis as above. Resolved #SUJATHA: resolved. #Anemia: * Patient has had acute anemia with hemoglobin of 8.1. * Hemoglobin on 03/11/2024 was 12.2 but this is likely due to acute blood loss anemia from GI bleed due to ischemic colitis. GI on board. * Will monitor and if hemoglobin trends to less than 7, will consider transfusion. #Type 2 diabetes mellitus: lantus resumed. ISS. Accuchecks ACHS #History of ischemic cardiomyopathy, s/p biventricular ICD: stable. #Benign essential hypertension:metoprolol and entresto resumed. Spironolactone remains on hold #HFpEF: on entresto and metoprolol. SPironolactone on hold #History of cerebral palsy: Stable #History of CVA: On aspirin and Plavix on hold due to the GI bleed #Hyperlipidemia: On statin #Anxiety and depression: on citalopram and clonazepam #Left upper renal pole cyst:per radiologist, no further imaging required. DVT prophylaxis: SCDs. Disposition: awaiting placement Charges/Coding Visit Charges Inpatient E&M: 64526 Subs Hosp L2
[2024-02-27 10:30] VITALS: BP 125/56; PULSE 68; RESP 16; TEMP 36.7; O2SAT 100
[2024-02-27] MEDS: Acetaminophen 325 MG Tablet 650 MG PO (10:41)
[2024-02-27] MEDS: oxyCODONE 5 MG Tablet PO (10:42)
[2024-02-27] MEDS: Vancomycin IV 500 MG/100 ML BAG 100 MG IV (11:02)
[2024-02-27] MEDS: Budesonide 3 MG CAPSULE.EC 9 MG PO (11:09)
[2024-02-27] MEDS: Tolterodine Tartrate 2 MG CAP.SA PO (11:10)
[2024-02-27] MEDS: Baclofen 10 MG Tablet 5 MG PO ×2 (11:10→21:04)
[2024-02-27] MEDS: Bisacodyl 5 MG Tablet PO ×2 (11:10→21:04)
[2024-02-27] MEDS: Pantoprazole Sodium 40 MG Tablet PO ×2 (11:11→21:04)
[2024-02-27] MEDS: SACUBITRIL/VALSARTAN 24/26 MG TABLET 1 EACH PO ×2 (14:29→21:04)
--- NOTE | 2024-02-27 14:29 | PN.GI_ITS ---
Subjective Subjective Patient states that her abdominal pain and cramping is a lot better since being started on medications from yesterday. Objective Data Objective Data Vital Signs: Vital Signs Temp Pulse Resp BP Pulse Ox O2 Del Method O2 Flow Rate 98.0 F 68 16 125/56 H 100 Room Air 2 02/27/24 10:30 02/27/24 10:30 02/27/24 10:30 02/27/24 10:30 02/27/24 10:30 02/27/24 10:30 02/26/24 22:00 Oxygen Flow Rate (L/min) 2 Oxygen Delivery Method Room Air Weight: 128 lb 15.985 oz Body Mass Index (BMI) 19.5 Intake & Output: Intake and Output for Last 24 Hours 02/25/24 02/26/24 02/27/24 23:59 23:59 23:59 Intake Total 629 / 629 4167.33 / 4167.33 2200 / 2200 Output Total 550 / 550 Balance 629 / 629 4167.33 / 4067.33 1650 / 1650 Lab / Micro Data 02/27/24 06:07 02/27/24 06:07 Labs: Laboratory Results - last 24 hr 02/26/24 17:10: Sodium 140, Potassium 3.9, Chloride 113 H, Carbon Dioxide 25.0, Anion Gap 2 L, BUN 8, Creatinine 0.75, Estim Creat Clear Calc 59.58, Est GFR (MDRD) Af Amer 99, Est GFR (MDRD) Non-Af 81, BUN/Creatinine Ratio 10.7, Glucose 145 H, Calcium 7.7 L 02/27/24 06:07: WBC 6.2, RBC 2.71 L, Hgb 8.1 L, Hct 25.6 L, MCV 94.5, MCH 29.9, MCHC 31.6 L, RDW Std Deviation 48.5 H, RDW Coeff of Edita 14.3, Plt Count 117 L, MPV 10.6, Immature Gran % (Auto) 0.300, Neut % (Auto) 69.4, Lymph % (Auto) 22.4, [place] % (Auto) 6.2, Eos % (Auto) 1.5, Baso % (Auto) 0.2, Absolute Neuts (auto) 4.3, Absolute Lymphs (auto) 1.38, Nucleated RBC % 0, Sodium 144, Potassium 3.7, Chloride 118 H, Carbon Dioxide 24.0, Anion Gap 2 L, BUN 6 L, Creatinine 0.66, Estim Creat Clear Calc 59.58, Est GFR (MDRD) Af Amer 114, Est GFR (MDRD) Non-Af 94, BUN/Creatinine Ratio 9.1 L, Glucose 117 H, Calcium 8.0 L Micro: Microbiology 02/26/24 00:00 Urine, Clean Catch Urine Culture - Preliminary Culture exhibits no growth. 02/25/24 18:35 Urine, Clean Catch Legionella Antigen - Final 02/25/24 18:35 Urine, Clean Catch Streptococcus pneumoniae Antigen (M - Final 02/21/24 22:45 Stool Enteric Bacteriology - Final 02/21/24 22:45 Stool C. difficile GDH Antigen & Toxins - Final 02/21/24 22:45 Stool Clostridioides difficile (PCR) - Final 02/21/24 16:20 Stool Stool Occult Blood (EDUARDO) - Final Occult Blood Positive Physical Exam Const alert, oriented x3, no apparent distress and average body habitus Constitutional Narrative: frail, in minimal discomfort today. General Appearance: cooperative, well kempt and well developed Orientation / Consciousness: awake, oriented to person and oriented to time HEENT normocephalic, head/scalp atraumatic and hearing grossly normal bilaterally Mouth: dry mucous membranes Eyes PERRL, EOMs intact bilaterally and conjunctivae normal Neck no lymphadenopathy, supple, no JVD, thyroid normal and no carotid bruits General: trachea midline Lymph Lymphatic: no lymphadenopathy noted and no lymphedema noted Resp normal respiratory effort, normal air movement, no retractions, no use of accessory muscles and clear to auscultation bilaterally Auscultation: Negative for rales, rhonchi or wheezes Cardio regular rate, regular rhythm, S1 normal heart sound, S2 normal heart sound, no murmurs, no rub and no gallops GI normal to inspection, nondistended, normoactive bowel sounds, soft to palpation, non-tender and non-distended GI Narrative: mild lower abdominal tenderness, no guarding or rebound tenderness Extremity normal capillary refill, no clubbing, cyanosis or edema and no calf tenderness General Extremity: no tenderness to palpation of joints or extremities Skin no rashes or lesions noted General Skin Exam: no breakdown Neuro oriented x3, CN's II-XII intact bilaterally, moves all extremities, no focal motor deficits, no sensory deficits noted and deep tendon reflexes 2+ bilaterally Sensorium / Orientation: awake and alert Motor Exam: strength 5/5 throughout and general weakness Psych thought process normal, cooperative and affect normal Appearance: appropriate Assessment & Plan Assessment/Plan (1) CVA (cerebral vascular accident): PLAN: Plan 69-year-old with unfortunate recent diagnosis of Recurrent right-sided weakness with spasticity secondary to possible underlying CVA. ? I am not sure why patient developed worsening constipation. Likely is medication side effect. She is on aspirin 81 milligrams a day. As she takes pantoprazole 40 mg twice a day. I think she needs undergo evaluation of her GI tract to see if she has any signs and symptoms of ischemic disease, peptic ulcer disease, chronic changes such as Lukasz's erosions, angiodysplasia, gastroesophageal reflux disease. Findings from colonoscopy Impression: - Rectal prolapse. - Diverticulosis in the recto-sigmoid colon, in the sigmoid colon and at the hepatic flexure. - Patchy moderate inflammation was found in the sigmoid colon, in the descending colon, at the splenic flexure, at the hepatic flexure and in the ascending colon secondary to ischemic colitis. Biopsied. - The examination was otherwise normal. Recommendation: - Return patient to [facility] for ongoing care. - Resume previous diet. - Continue present medications. - Await pathology results. -This is ischemic colitis secondary to severe constipation. The goal is an aggressive bowel regimen. 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 She does take baclofen with narcotics at home and has a history of chronic idiopathic constipation. She was determined to have ischemic colitis in the setting of diverticular disease and mild sigmoid colitis associated with diverticulosis. Recommend to Dulcolax 5 mg twice a day. If she is gone but not gone completely then she will need to add MiraLAX on a daily basis. 02/25/2024-we started on bowel regimen yesterday. And she has been having bowel movements without straining. I cannot explain why her appetite is poor. She does have a history of anxiety and mild depression. At this time she is not on anything for anxiety or depression. I think that could be contributing to some to her fatigue, weakness and poor appetite. 02/26/2024-I still think that she is exhibiting signs of cramping, abdominal pain and diarrhea resulting in ischemic colitis. Her stools are PCR positive for toxigenic C. difficile but there antigen negative for C. difficile. I will start her on empiric oral vancomycin. She should also get started on a probiotic and low-dose budesonide therapy for the intermittent colitis that seen on imaging. She also needs to be on scheduled Bentyl for the cramping. 02/27/2024-patient is showing some signs of improvement. Recommended continue current medication regimen. Charges/Coding Visit Charges Inpatient E&M: 05936 Subs Hosp L3
[2024-02-27 16:00] VITALS: BP 125/62; PULSE 68; RESP 18; TEMP 36.4; O2SAT 95
[2024-02-27 20:35] VITALS: BP 137/54; PULSE 60; RESP 16; TEMP 36.6; O2SAT 98
[2024-02-27] MEDS: Atorvastatin Calcium 40 MG Tablet PO (21:04)
[2024-02-27] MEDS: Citalopram 20 MG Tablet PO (21:04)
[2024-02-27] MEDS: clonazePAM 1 MG Tablet PO (21:06)
[2024-02-27 22:15] LABS: Vancomycin, Trough Level 13.3 ug/mL (5.0-15.0)
[2024-02-27] MEDS: Vancomycin HCl 750 MG in 0.9% Normal Saline (250mL Bag) 250 ML 250 MG IV (23:05)
[2024-02-28] VITALS (7 sets, daily range): BP systolic 130–143; BP diastolic 57–96; PULSE 68–90; RESP 15–18; TEMP 36.6–37.1; O2SAT 94–97
[2024-02-28] MEDS: Acetaminophen 325 MG Tablet 650 MG PO (01:20)
[2024-02-28] MEDS: oxyCODONE 5 MG Tablet PO (01:20)
--- NOTE | 2024-02-28 02:45 | PCM.RX.CS ---
Consult Antibiotic Management Pharmacy has been consulted to manage selected antibiotic: Vancomycin Type of Intervention Type of Consult: Follow-up Labs Labs: Sodium 144 mmol/L (136-145) 02/27/24 06:07 Potassium 3.7 mmol/L (3.5-5.1) 02/27/24 06:07 Chloride 118 mmol/L (98-107) H 02/27/24 06:07 Carbon Dioxide 24.0 mmol/L (21.0-32.0) 02/27/24 06:07 Anion Gap 2 (5-15) L 02/27/24 06:07 BUN 6 mg/dL (7-18) L 02/27/24 06:07 Creatinine 0.66 mg/dL (0.55-1.02) 02/27/24 06:07 Est GFR (MDRD) Af Amer 114 mL/min (>60) 02/27/24 06:07 Est GFR (MDRD) Non-Af 94 mL/min (>60) 02/27/24 06:07 BUN/Creatinine Ratio 9.1 RATIO (10-20) L 02/27/24 06:07 Glucose 117 mg/dL (74-106) H 02/27/24 06:07 Vancomycin Trough 13.3 ug/mL (5.0-15.0) 02/27/24 21:30 Microbiology Microbiology: Microbiology 02/26/24 00:00 Urine, Clean Catch Urine Culture - Preliminary Culture exhibits no growth. 02/25/24 18:35 Urine, Clean Catch Legionella Antigen - Final 02/25/24 18:35 Urine, Clean Catch Streptococcus pneumoniae Antigen (M - Final 02/21/24 22:45 Stool Enteric Bacteriology - Final 02/21/24 22:45 Stool C. difficile GDH Antigen & Toxins - Final 02/21/24 22:45 Stool Clostridioides difficile (PCR) - Final 02/21/24 16:20 Stool Stool Occult Blood (EDUARDO) - Final Occult Blood Positive Goal Trough Goal Trough: 15-20 mcg/mL Pharmacy Plan for Drug Dosing Pharmacy Plan for Drug Dosing: Pharmacy Service will continue to monitor and adjust dosing as required. TROUGH 13.3 @ 10.5 HOURS. INCREASE TO 750MG Q12H AND FOLLOW UP TROUGH PRIOR TO 4TH DOSE Follow-Up Labs Follow-Up Labs: Trough: Vancomycin Date/Time Labs Ordered Labs to be done on [date and time ordered]: 02/28 @ 1000
[2024-02-28] MEDS: Vancomycin 125 MG/5 ML Susp PO.SYRINGE PO ×3 (05:40→17:51)
[2024-02-28] MEDS: Piperacil/Tazobactam 3.375 GM in 0.9% Normal Saline (50mL MB+) 50 ML IV ×3 (05:40→22:38)
[2024-02-28] MEDS: Dicyclomine 10 MG Capsule 20 MG PO ×3 (05:40→16:46)
[2024-02-28 06:22] LABS: Absolute Lymphocyte Count 2.05 X10^3/uL (0.83-4.51); Basophil# 0.01 X10^3/uL; Basophil% 0.2 % (0-1); Eosinophils% 4.3 % (0-5); Hematocrit 26.8 % (37-47); Hemoglobin 8.6 g/dL (12.0-15.0); Lymphocyte # 2.05 X10^3/ul (0.83-4.51); Lymphocyte % 44.4 % (19-41); Mean Corp Hgb Conc 32.1 g/dL (32-36); Mean Corpuscular Hgb 29.7 pg (27.0-32.0); Mean Corpuscular Volume 92.4 fL (81-99); Mean Platelet Vol. 10.8 fl (6.2-12.0); Monocyte# 0.32 X10^3/uL; Monocyte% 6.9 % (0-10); NRBC Flagged by Analyzer 0 % (0-5); Neutrophil # 2.03 X10^3/uL (2.7-7.7); Platelet Count 142 K/mm3 (150-450); RBC Distribution Width CV 14.2 % (11.6-14.6); White Blood Count 4.6 K/mm3 (4.4-11.0)
[2024-02-28 06:44] LABS: Anion Gap 4 (5-15); BUN 5 mg/dL (7-18); Calcium,Total 7.8 mg/dL (8.5-10.1); Chloride 115 mmol/L (98-107); Creatinine, Serum 0.62 mg/dL (0.55-1.02); EST Glomerular Filtration Rate 100 mL/min (>60); Est Glom Filt Rate - Afr Amer 121 mL/min (>60); Estimated Creatinine Clearance 59.58 ml/min; Glucose 85 mg/dL (74-106); Potassium 3.2 mmol/L (3.5-5.1); Sodium Level 143 mmol/L (136-145)
--- NOTE | 2024-02-28 08:23 | PN.HOSP_ITS ---
Reason for Visit Reason for Visit: Diagnoses Cerebral infarction, unspecified (02/21/24) Noninfective gastroenteritis and colitis, unspecified (02/21/24) Gastrointestinal hemorrhage, unspecified (02/21/24) Objective Data Objective Data Vital Signs: Vital Signs Temp Pulse Resp BP Pulse Ox O2 Del Method O2 Flow Rate 98 F 71 16 140/61 H 95 Room Air 2 02/28/24 02:15 02/28/24 02:15 02/28/24 02:15 02/28/24 02:15 02/28/24 02:15 02/28/24 02:15 02/26/24 22:00 Oxygen Flow Rate (L/min) 2 Oxygen Delivery Method Room Air Weight: 128 lb 15.985 oz Body Mass Index (BMI) 19.5 Intake & Output: Intake and Output for Last 24 Hours 02/26/24 02/27/24 02/28/24 23:59 23:59 23:59 Intake Total 4167.33 / 4167.33 2355.63 / 2355.63 284.37 / 284.37 Output Total 550 / 550 Balance 4167.33 / 4067.33 1805.63 / 1805.63 284.37 / 284.37 Lab / Micro Data 02/28/24 05:40 02/28/24 05:40 Labs: Laboratory Results - last 24 hr 02/27/24 21:30: Vancomycin Trough 13.3 02/28/24 05:40: WBC 4.6, RBC 2.90 L, Hgb 8.6 L, Hct 26.8 L, MCV 92.4, MCH 29.7, MCHC 32.1, RDW Std Deviation 48.0 H, RDW Coeff of Edita 14.2, Plt Count 142 L, MPV 10.8, Immature Gran % (Auto) 0.200, Neut % (Auto) 44.0 L, Lymph % (Auto) 44.4 H, [place] % (Auto) 6.9, Eos % (Auto) 4.3, Baso % (Auto) 0.2, Absolute Neuts (auto) 2.0, Absolute Lymphs (auto) 2.05, Nucleated RBC % 0, Sodium 143, Potassium 3.2 L , Chloride 115 H, Carbon Dioxide 24.0, Anion Gap 4 L, BUN 5 L, Creatinine 0.62, Estim Creat Clear Calc 59.58, Est GFR (MDRD) Af Amer 121, Est GFR (MDRD) Non-Af 100, BUN/Creatinine Ratio 8.0 L, Glucose 85, Calcium 7.8 L Micro: Microbiology 02/26/24 00:00 Urine, Clean Catch Urine Culture - Preliminary Culture exhibits no growth. 02/25/24 18:35 Urine, Clean Catch Legionella Antigen - Final 02/25/24 18:35 Urine, Clean Catch Streptococcus pneumoniae Antigen (M - Final 02/21/24 22:45 Stool Enteric Bacteriology - Final 02/21/24 22:45 Stool C. difficile GDH Antigen & Toxins - Final 02/21/24 22:45 Stool Clostridioides difficile (PCR) - Final 02/21/24 16:20 Stool Stool Occult Blood (EDUARDO) - Final Occult Blood Positive Physical Exam Narrative Seen and examined. Patient did not had bowel movement for 3 days. Abdominal pain has resolved. No fever. Still NPO. Physical exam General: Alert, Oriented x3, Cooperative. Fatigue HEENT: Atraumatic, PERRLA, EOMI, Normocephalic Oral: No Gingival or Mucosal Lesions/ Ulcerations Neck: Supple, No JVD, Negative Carotid Bruits Chest wall/Lungs: Air entry diminished in bilateral lung bases. No crepitation/rhonchi Cardiovascular: Regular rate, Regular Rhythm, Normal S1, Normal S2, No M/G/R Abdomen: Bowel Sounds Present, Soft, Non Tender, Non-Distended : No dysuria. No renal angle tenderness. No suprapubic tenderness. Extremities: No edema, Capillary Refill Less than 3 Seconds Skin: No rashes, No breakdown Musculoskeletal: No Tenderness to Palpation of Joints or Extremities Neurological: Cranial nerves II-XII grossly intact, DTR 2+/4. No acute focal neurological deficit. Psych/Mental Status: Flat affect. Assessment & Plan Assessment/Plan (1) Gastrointestinal bleeding, lower: (2) Colitis: PLAN: Plan This 68-year-old female was admitted with abdominal pain, nausea, vomiting and diarrhea progressively worse over past few days patient was seen [address] was done and was discharged on stool softener MiraLAX. #Acute colitis * Was admitted with a complaint of bright red rectal bleeding left lower quadrant abdominal pain. CT of the abdomen and pelvis showed new inflammation along the length of the descending colon concerning for infectious or inflammatory colitis * colonoscopy showed diverticulosis in the rectosigmoid colon, sigmoid colon and hepatic flexure, as well as patchy moderate inflammation in the sigmoid colon, descending colon and at the heaptic and splenic flexure and in the ascending colon due to ischemic colitis. * Antibiotics broadened to vancomycin and Zosyn after she continued to have a fever. Fever has now resolved. * CT of the chest abdomen and pelvis showed persistent BX submucosal thickening in the distal transverse, throughout the descending and sigmoid colon consistent with a diffuse colitis with pericolonic inflammatory stranding but no perforation or abscess and new free-flowing bilateral pleural effusions with bibasilar atelectasis. * Continuing IV vancomycin and Zosyn. White cell count is trended down from 13.1 yesterday to 6. * Patient was evaluated by manager of global 02/27: Patient passing flatus but no bowel movement. On a stool softener and MiraLAX. Clear liquid diet started. Patient was evaluated by ID and vancomycin discontinued. Continue IV Zosyn and p.o. vancomycin. Leukocytosis has resolved. Hypokalemia, hypomagnesemia and hypophosphatemia:electrolyte replacement ordered. #Bilateral pleural effusions * chest CT shwoed bilateral free flowing pleural effusions. * patient on room air. Had previously been on 2 L of oxygen. * Per records, and cumulative positive fluid balance by 14,405 mL. I doubt this is acute rate as patient does have a Juarez catheter in situ and has been using the bathroom on her own which a urine is not adequately being measured. * Will consider diuresis if patient requires increasing oxygen amounts. * check BNP. * Echo from September 2023 showed EF of 55% and no evidence of diastolic dysfunction with no regional wall motion abnormality seen. #Hypotension: resolved. #Lower GI bleed: Due to acute colitis as above. Resolved #SUJATHA: resolved. #Anemia: * Patient has had acute anemia with hemoglobin of 8.1. * Hemoglobin on 03/11/2024 was 12.2 but this is likely due to acute blood loss anemia from GI bleed due to ischemic colitis. GI on board. * Will monitor and if hemoglobin trends to less than 7, will consider transfusion. #Type 2 diabetes mellitus: lantus resumed. ISS. Accuchecks ACHS #History of ischemic cardiomyopathy, s/p biventricular ICD: stable. #Benign essential hypertension:metoprolol and entresto resumed. Spironolactone remains on hold #HFpEF: on entresto and metoprolol. SPironolactone on hold #History of cerebral palsy: Stable #History of CVA: On aspirin and Plavix on hold due to the GI bleed #Hyperlipidemia: On statin #Anxiety and depression: on citalopram and clonazepam #Left upper renal pole cyst:per radiologist, no further imaging required. DVT prophylaxis: SCDs. Discussed with the case management associate. Patient's wanted to go to TCU. Charges/Coding Visit Charges Inpatient E&M: 30823 Subs Hosp L2
[2024-02-28 09:02] LABS: Magnesium 1.6 mg/dL (1.6-2.6)
[2024-02-28] MEDS: Potassium Chloride 10mEq/100mL 10 MEQ/100 ML IV.SOLN. 100 MEQ IV BOLUS ×4 (10:31→16:45)
[2024-02-28] MEDS: Vancomycin HCl 750 MG in 0.9% Normal Saline (250mL Bag) 250 ML 250 MG IV (10:40)
[2024-02-28] MEDS: 0.9% Normal Saline (250mL Bag) 250 ML 15 ML IV (10:41)
[2024-02-28] MEDS: Pantoprazole Sodium 40 MG Tablet PO ×2 (12:53→22:37)
[2024-02-28] MEDS: Baclofen 10 MG Tablet 5 MG PO ×2 (12:54→22:36)
[2024-02-28] MEDS: Budesonide 3 MG CAPSULE.EC 9 MG PO (12:54)
[2024-02-28] MEDS: SACUBITRIL/VALSARTAN 24/26 MG TABLET 1 EACH PO ×2 (12:55→22:35)
[2024-02-28] MEDS: Tolterodine Tartrate 2 MG CAP.SA PO (12:56)
--- NOTE | 2024-02-28 12:58 | PCM.CONS.GEN ---
Assessment & Plan Assessment/Plan (1) Colitis: PLAN: Cdiff pcr (+) but toxin neg. Will stop iv vanc. Cont po vanc and zosyn for now. Overall improving. Will follow, thank you HPI Consult Data Date of Consult: 02/28/24 HPI Narrative Reason for Consultation: colitis HPI Narrative: BETTY CARO, is a 69 F who presented 02/21/24 to ED with 2 days of diarrhea, blood in stool, confusion, hypotension, abd pain. Had been in ED 2 days prior with constipation, given bowel regimen. No prior h/o cdiff. CT here showed colitis, cdiff pcr (+), started on iv vanc, po vanc, iv zosyn. Feeling better, pain and diarrhea slowly improving. Full ROS performed and neg except as noted above. COUNTS INCLUDE 234 BEDS AT THE [facility] Medical History Anxiety and depression AV node dysfunction Cardiac resynchronization therapy defibrillator (IN TUBE CONVERSION TECHNICIAN-D) in place Cerebral palsy Congestive heart failure (CHF) Coronary artery disease CVA (cerebral vascular accident) Diabetes mellitus Former smoker Heart failure with reduced ejection fraction High cholesterol Hyperlipidemia Hypertension ICD (implantable cardioverter-defibrillator) in place Insomnia Ischemic cardiomyopathy Myocarditis Pacemaker PFO (patent foramen ovale) Presence of biventricular implantable cardioverter-defibrillator Restless legs Transient ischemic attack Ulcer Home Medications citalopram 20 mg tablet 20 mg PO QHS depression 11/18/14 [History Last Taken 10/06/23] clonazepam 1 mg tablet 1 mg PO QHS anxiety 11/18/14 [History Last Taken 10/06/23] multivitamin with folic acid 400 mcg tablet (Thera) 1 tab PO DAILY vitamin 11/18/14 [History Last Taken 10/07/23] trazodone 50 mg tablet 50 mg PO DAILY PRN Anxiety 11/18/14 [History Last Taken 10/06/23] clopidogrel 75 mg tablet 1 tab PO QHS anti platelet 05/18/16 [History Last Taken 10/06/23] empagliflozin 10 mg tablet (Jardiance) 10 mg PO DAILY diabetes 09/28/23 [History Last Taken 10/07/23] metoprolol succinate 25 mg tablet,extended release 24 hr 12.5 mg PO DAILY blood pressure 09/28/23 [History Last Taken 10/07/23] pantoprazole 40 mg tablet,delayed release 40 mg PO BID stomach acid 09/28/23 [History Last Taken 10/07/23] cholecalciferol (vitamin D3) 25 mcg (1,000 unit) tablet 50 mcg (2 x 25 mcg (1,000 unit)) PO QHS supplement #0 tabs 09/30/23 [Rx Last Taken 10/06/23] aspirin 81 mg tablet,delayed release 81 mg PO DAILY heart 10/01/23 [History Last Taken 10/07/23] spironolactone 25 mg tablet 12.5 mg PO MOWEFR FLUID 10/07/23 [History Last Taken 10/06/23] baclofen 5 mg tablet 5 mg PO BID 02/21/24 [History Last Taken Unknown] calcium carbonate 600 mg-vitamin D3 10 mcg (400 unit) tablet 1 tab PO BID 02/21/24 [History Last Taken Unknown] escitalopram oxalate 10 mg tablet 10 mg PO DAILY 02/21/24 [History Last Taken Unknown] metformin 500 mg tablet,extended release 24 hr 500 mg PO DAILY 02/21/24 [History Last Taken Unknown] oxybutynin chloride 5 mg tablet,extended release 24 hr 5 mg PO DAILY 02/21/24 [History Last Taken Unknown] rosuvastatin 20 mg tablet 20 mg PO QHS 02/21/24 [History Last Taken Unknown] sacubitril 24 mg-valsartan 26 mg tablet (Entresto) 0.5 tab PO BID 02/21/24 [History Last Taken Unknown] Allergy/AdvReac Type Severity Reaction Status Date / Time No Known Allergies Allergy Verified 02/21/24 14:04 Family History Father Heart disease Mother Anxiety and depression Suicide and self-inflicted injury from suicide age 52. Surgical History History of cardiac defibrillator placement History of cholecystectomy History of coronary artery stent placement History of skin surgery S/P colon polypectomy Social History household members: spouse Smoking Status: Former smoker how long ago did patient quit smokin-1.5 ppd from teen until quit in 2008. alcohol intake: never substance use type: does not use Physical Exam Const alert and no apparent distress General Appearance: cooperative HEENT normocephalic and head/scalp atraumatic Eyes PERRL and EOMs intact bilaterally Neck supple and No nodes Resp normal air movement and clear to auscultation bilaterally Cardio regular rate and regular rhythm Heart Sounds: murmur GI soft to palpation, non-tender and non-distended Extremity General Extremity: Negative for edema Skin no rashes or lesions noted Neuro CN's II-XII intact bilaterally Lab / Micro Data Attestation: I reviewed the patient's lab results. 02/28/24 05:40 02/28/24 05:40 Labs: Laboratory Results - last 24 hr 02/27/24 21:30: Vancomycin Trough 13.3 02/28/24 05:40: WBC 4.6, RBC 2.90 L, Hgb 8.6 L, Hct 26.8 L, MCV 92.4, MCH 29.7, MCHC 32.1, RDW Std Deviation 48.0 H, RDW Coeff of Edita 14.2, Plt Count 142 L, MPV 10.8, Immature Gran % (Auto) 0.200, Neut % (Auto) 44.0 L, Lymph % (Auto) 44.4 H, [place] % (Auto) 6.9, Eos % (Auto) 4.3, Baso % (Auto) 0.2, Absolute Neuts (auto) 2.0, Absolute Lymphs (auto) 2.05, Nucleated RBC % 0, Sodium 143, Potassium 3.2 L, Chloride 115 H, Carbon Dioxide 24.0, Anion Gap 4 L, BUN 5 L, Creatinine 0.62, Estim Creat Clear Calc 59.58, Est GFR (MDRD) Af Amer 121, Est GFR (MDRD) Non-Af 100, BUN/Creatinine Ratio 8.0 L, Glucose 85, Calcium 7.8 L, Phosphorus 2.0 L, Magnesium 1.6 Micro: Microbiology 02/26/24 00:00 Urine, Clean Catch Urine Culture - Final Culture exhibits no growth.
[2024-02-28] MEDS: Bisacodyl 5 MG Tablet PO ×2 (13:00→22:35)
--- NOTE | 2024-02-28 14:44 | CASEMGMT ---
Addendum entered by Meghan Ashford 02/28/24 14:55: Per hospitalist, plan for dc tomorrow. Original Note: TANIA CM updated by that precert has been obtained and it is good until tomorrow night at [facility]. Updated hospitalist.
[2024-02-28] MEDS: Magnesium Chloride 64 MG Delay Rel.Tablet 128 MG PO ×2 (15:22→22:36)
[2024-02-28] MEDS: Na Biphos/Potassium Phosphate PACKET 1 PACKET PO ×2 (15:22→22:37)
[2024-02-28] MEDS: Polyethylene Glycol 3350 17 GM PACKET PO (15:22)
[2024-02-28] MEDS: Ondansetron 4 MG/2 ML Vial IV (15:35)
[2024-02-28] MEDS: 0.9% Saline Lock 10 ML Syringe IV (15:36)
--- NOTE | 2024-02-28 17:27 | PN.GI_ITS ---
Subjective Subjective Patient's diarrhea has subsided with current medical regimen. She has a lot less cramping which I think was contributing to her diarrhea. Objective Data Objective Data Vital Signs: Vital Signs Temp Pulse Resp BP Pulse Ox O2 Del Method O2 Flow Rate 98.7 F 90 18 143/96 H 95 Room Air 2 02/28/24 15:42 02/28/24 15:44 02/28/24 15:42 02/28/24 15:42 02/28/24 15:42 02/28/24 15:44 02/26/24 22:00 Oxygen Flow Rate (L/min) 2 Oxygen Delivery Method Room Air Weight: 128 lb 15.985 oz Body Mass Index (BMI) 19.5 Intake & Output: Intake and Output for Last 24 Hours 02/26/24 02/27/24 02/28/24 23:59 23:59 23:59 Intake Total 4167.33 / 4167.33 2355.63 / 2355.63 900.37 / 900.37 Output Total 550 / 550 Balance 4167.33 / 4067.33 1805.63 / 1805.63 900.37 / 900.37 Lab / Micro Data 02/28/24 05:40 02/28/24 05:40 Labs: Laboratory Results - last 24 hr 02/27/24 21:30: Vancomycin Trough 13.3 02/28/24 05:40: WBC 4.6, RBC 2.90 L, Hgb 8.6 L, Hct 26.8 L, MCV 92.4, MCH 29.7, MCHC 32.1, RDW Std Deviation 48.0 H, RDW Coeff of Edita 14.2, Plt Count 142 L, MPV 10.8, Immature Gran % (Auto) 0.200, Neut % (Auto) 44.0 L, Lymph % (Auto) 44.4 H, [place] % (Auto) 6.9, Eos % (Auto) 4.3, Baso % (Auto) 0.2, Absolute Neuts (auto) 2.0, Absolute Lymphs (auto) 2.05, Nucleated RBC % 0, Sodium 143, Potassium 3.2 L , Chloride 115 H, Carbon Dioxide 24.0, Anion Gap 4 L, BUN 5 L, Creatinine 0.62, Estim Creat Clear Calc 59.58, Est GFR (MDRD) Af Amer 121, Est GFR (MDRD) Non-Af 100, BUN/Creatinine Ratio 8.0 L, Glucose 85, Calcium 7.8 L, Phosphorus 2.0 L, Magnesium 1.6 Micro: Microbiology 02/25/24 17:42 Blood Culture (Wb) - Right Hand Blood Culture - Preliminary No growth in 48 hours. 02/25/24 17:22 Blood Culture (Wb) - Left Hand Blood Culture - Preliminary No growth in 48 hours. 02/26/24 00:00 Urine, Clean Catch Urine Culture - Final Culture exhibits no growth. 02/25/24 18:35 Urine, Clean Catch Legionella Antigen - Final 02/25/24 18:35 Urine, Clean Catch Streptococcus pneumoniae Antigen (M - Final 02/21/24 22:45 Stool Enteric Bacteriology - Final 02/21/24 22:45 Stool C. difficile GDH Antigen & Toxins - Final 02/21/24 22:45 Stool Clostridioides difficile (PCR) - Final 02/21/24 16:20 Stool Stool Occult Blood (EDUARDO) - Final Occult Blood Positive Physical Exam Const alert and no apparent distress General Appearance: cooperative HEENT normocephalic and head/scalp atraumatic Eyes PERRL and EOMs intact bilaterally Neck supple and No nodes Resp normal air movement and clear to auscultation bilaterally Cardio regular rate and regular rhythm Heart Sounds: murmur GI soft to palpation, non-tender and non-distended Extremity General Extremity: Negative for edema Skin no rashes or lesions noted Neuro CN's II-XII intact bilaterally Assessment & Plan Assessment/Plan (1) CVA (cerebral vascular accident): PLAN: Plan 69-year-old with unfortunate recent diagnosis of Recurrent right-sided weakness with spasticity secondary to possible underlying CVA. ? I am not sure why patient developed worsening constipation. Likely is medication side effect. She is on aspirin 81 milligrams a day. As she takes pantoprazole 40 mg twice a day. I think she needs undergo evaluation of her GI tract to see if she has any signs and symptoms of ischemic disease, peptic ulcer disease, chronic changes such as Lukasz's erosions, angiodysplasia, renae roesophageal reflux disease. Findings from colonoscopy Impression: - Rectal prolapse. - Diverticulosis in the recto-sigmoid colon, in the sigmoid colon and at the hepatic flexure. - Patchy moderate inflammation was found in the sigmoid colon, in the descending colon, at the splenic flexure, at the hepatic flexure and in the ascending colon secondary to ischemic colitis. Biopsied. - The examination was otherwise normal. Recommendation: - [facility] to [facility] care. - Resume previous diet. - Continue present medications. - Await pathology results. -This is ischemic colitis secondary to severe constipation. The goal is an aggressive bowel regimen. 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 She does take baclofen with narcotics at home and has a history of chronic idiopathic constipation. She was determined to have ischemic colitis in the setting of diverticular disease and mild sigmoid colitis associated with diverticulosis. Recommend to Dulcolax 5 mg twice a day. If she is gone but not gone completely then she will need to add MiraLAX on a daily basis. 02/25/2024-we started on bowel regimen yesterday. And she has been having bowel movements without straining. I cannot explain why her appetite is poor. She does have a history of anxiety and mild depression. At this time she is not on anything for anxiety or depression. I think that could be contributing to some to her fatigue, weakness and poor appetite. 02/26/2024-I still think that she is exhibiting signs of cramping, abdominal pain and diarrhea resulting in ischemic colitis. Her stools are PCR positive for toxigenic C. difficile but there antigen negative for C. difficile. I will start her on empiric oral vancomycin. She should also get started on a probiotic and low-dose budesonide therapy for the intermittent colitis that seen on imaging. She also needs to be on scheduled Bentyl for the cramping. 02/27/2024-patient is showing some signs of improvement. Recommended continue current medication regimen. 02/28/2024-patient from a GI standpoint is doing a lot better. She is not having any signs of lower GI bleeding. But the cramping is a lot better on scheduled dicyclomine. She also has been on budesonide and oral vancomycin. She feels less bloated. Appreciate infectious disease consultation. Recommended stopping IV Vanco and continue oral Vanco. I am okay with continue that plan. Charges/Coding Visit Charges Inpatient E&M: 84765 [facility] Hosp L3
[2024-02-28] MEDS: Citalopram 20 MG Tablet PO (22:34)
[2024-02-28] MEDS: Atorvastatin Calcium 40 MG Tablet PO (22:36)
[2024-02-28] MEDS: clonazePAM 1 MG Tablet PO (22:43)
[2024-02-29] MEDS: Vancomycin 125 MG/5 ML Susp PO.SYRINGE PO ×3 (00:22→11:45)
[2024-02-29 04:00] VITALS: BP 127/45; PULSE 66; RESP 15; TEMP 36.9; O2SAT 95
[2024-02-29] MEDS: Na Biphos/Potassium Phosphate PACKET 1 PACKET PO ×2 (05:51→11:45)
[2024-02-29] MEDS: Dicyclomine 10 MG Capsule 20 MG PO ×2 (05:52→11:45)
[2024-02-29] MEDS: Piperacil/Tazobactam 3.375 GM in 0.9% Normal Saline (50mL MB+) 50 ML IV (05:52)
[2024-02-29 07:16] LABS: Absolute Lymphocyte Count 1.82 X10^3/uL (0.83-4.51); Absolute Neutrophil Count 1.8 X10^3/uL (2.0-7.7); Basophil# 0.02 X10^3/uL; Basophil% 0.5 % (0-1); Eosinophil# 0.14 X10^3/uL; Eosinophils% 3.3 % (0-5); Hematocrit 27.4 % (37-47); Hemoglobin 8.8 g/dL (12.0-15.0); Lymphocyte # 1.82 X10^3/ul (0.83-4.51); Lymphocyte % 43.5 % (19-41); Mean Corp Hgb Conc 32.1 g/dL (32-36); Mean Corpuscular Hgb 29.6 pg (27.0-32.0); Mean Corpuscular Volume 92.3 fL (81-99); Mean Platelet Vol. 10.6 fl (6.2-12.0); Monocyte# 0.42 X10^3/uL; NRBC Flagged by Analyzer 0 % (0-5); Neutrophil # 1.77 X10^3/uL (2.7-7.7); Neutrophil % 42.5 % (47-70); POSITIVE MORPHOLOGY YES; Platelet Count 199 K/mm3 (150-450); RBC Distribution Width CV 14.3 % (11.6-14.6); RBC Distribution Width SD 48.5 fl (35.1-43.9); Red Blood Count 2.97 M/mm3 (4.2-5.4); White Blood Count 4.2 K/mm3 (4.4-11.0)
[2024-02-29 07:18] LABS: Differential Indicated SCAN CRITERIA MET
--- NOTE | 2024-02-29 07:35 | DS.PCM_ITS ---
Providers Date of Admission: 02/21/24 Date of Discharge: 02/29/24 Primary Care Physician: Dr. Joo Campos, Consultations 02/21/24 22:23 Consult: Gastroenterology Routine Consulting Provider: [facility] Reason for Consult: Colitis EMERGENT Consult: No Notified: Yes Date Notified: 02/21/24 Time Notified: 19:59 Method of Notification: Verbal 02/26/24 11:58 Consult: Infectious Disease Routine Consulting Provider: Yoandy Thakkar Reason for Consult: acute colitis EMERGENT Consult: No Notified: Yes Date Notified: 02/27/24 Time Notified: 22:01 Method of Notification: Answering Service Reason For Visit: COLITIS Diagnosis Discharge Diagnosis (1) CVA (cerebral vascular accident): Status: Inactive Code(s): I63.9 - Cerebral infarction, unspecified Plan This 68-year-old female was admitted with abdominal pain, nausea, vomiting and diarrhea progressively worse over past few days. The patient was seen 2 days ago in ED and CT was done and was discharged on stool softener MiraLAX. #Acute colitis * Was admitted with a complaint of bright red rectal bleeding left lower quadrant abdominal pain. CT of the abdomen and pelvis showed new inflammation along the length of the descending colon concerning for infectious or inflammatory colitis * colonoscopy showed diverticulosis in the rectosigmoid colon, sigmoid colon and hepatic flexure, as well as patchy moderate inflammation in the sigmoid colon, descending colon and at the heaptic and splenic flexure and in the ascending colon due to ischemic colitis. * Antibiotics broadened to vancomycin and Zosyn after she continued to have a fever. Fever has now resolved. * CT of the chest abdomen and pelvis showed persistent BX submucosal thickening in the distal transverse, throughout the descending and sigmoid colon consistent with a diffuse colitis with pericolonic inflammatory stranding but no perforation or abscess and new free-flowing bilateral pleural effusions with bibasilar atelectasis. * Continuing IV vancomycin and Zosyn. White cell count is trended down from 13.1 yesterday to 6. * Patient was evaluated by big data software engineer 02/27: Patient passing flatus but no bowel movement. On a stool softener and MiraLAX. Clear liquid diet started. Patient was evaluated by ID and vancomycin discontinued. Continue IV Zosyn and p.o. vancomycin. Leukocytosis has resolved. 02/28: Patient passing flatus.Last BM yesterday 4/9. Patient on Dulcolax 5 mg p.o. twice daily and MiraLAX.Patient is only scheduled dicyclomine for abdominal cramps.Initially patient had diarrhea but now constipation. Vancomycin oral 125 mg Q4 hourly for 10 more days. Patient also on Budenoside 9 mg daily to continue. Follow-up in GI clinic in 1 month Hypokalemia, hypomagnesemia and hypophosphatemia:electrolyte replacement ordered. #Bilateral pleural effusions * chest CT shwoed bilateral free flowing pleural effusions. * patient on room air. Had previously been on 2 L of oxygen. * Per records, and cumulative positive fluid balance by 14,405 mL. I doubt this is acute rate as patient does have a Juarez catheter in situ and has been using the bathroom on her own which a urine is not adequately being measured. * Will consider diuresis if patient requires increasing oxygen amounts. * check BNP. * Echo from September 2023 showed EF of 55% and no evidence of diastolic dysfunction with no regional wall motion abnormality seen. #Hypotension: resolved. #Lower GI bleed: Due to acute colitis as above. Resolved #SUJATHA: resolved. # Acute blood loss anemia with chronic anemia. * Patient has had acute anemia with hemoglobin of 8.1. * Hemoglobin on 03/11/2024 was 12.2 but this is likely due to acute blood loss anemia from GI bleed due to ischemic colitis. GI on board. * Will monitor and if hemoglobin trends to less than 7, will consider transfusion. 02/28: Last H&H 8.8/27%. Platelet count 199,000. No acute drop in H&H. #Type 2 diabetes mellitus: lantus resumed. ISS. Accuchecks ACHS #History of ischemic cardiomyopathy, s/p biventricular ICD: stable. #Benign essential hypertension:metoprolol and entresto resumed. Spironolactone remains on hold #HFpEF: on entresto and metoprolol. SPironolactone on hold #History of cerebral palsy: Stable #History of CVA: On aspirin and Plavix on hold due to the GI bleed #Hyperlipidemia: On statin #Anxiety and depression: on citalopram and clonazepam #Left upper renal pole cyst:per radiologist, no further imaging required. DVT prophylaxis: SCDs. Discussed with the employment case manager. Patient is being discharged to TCU. Discharge medication reconciliation done. Discharge follow-up instructions completed. Discharge process discussed with the patient and all questions were answered to patient's satisfaction. Follow with PCP in 1 to 2 weeks Follow-up with GI in about 1 month. Total time spent, exact 35 minutes on discharge meds reconciliation, examination, coordination of care with nurses and ancillary staff, review of imaging and blood test and discussion with the patient on follow-up instructions. Medications at Discharge Home Medications citalopram 20 mg tablet 20 mg PO QHS depression 11/18/14 clonazepam 1 mg tablet 1 mg PO QHS anxiety 11/18/14 multivitamin with folic acid 400 mcg tablet (Thera) 1 tab PO DAILY vitamin 11/18/14 trazodone 50 mg tablet 50 mg PO DAILY PRN Anxiety 11/18/14 clopidogrel 75 mg tablet 1 tab PO QHS anti platelet 05/18/16 empagliflozin 10 mg tablet (Jardiance) 10 mg PO DAILY diabetes 09/28/23 metoprolol succinate 25 mg tablet,extended release 24 hr 12.5 mg PO DAILY blood pressure 09/28/23 pantoprazole 40 mg tablet,delayed release 40 mg PO BID stomach acid 09/28/23 cholecalciferol (vitamin D3) 25 mcg (1,000 unit) tablet 50 mcg (2 x 25 mcg (1,000 unit)) PO QHS supplement #0 tabs 09/30/23 aspirin 81 mg tablet,delayed release 81 mg PO DAILY heart 10/01/23 spironolactone 25 mg tablet 12.5 mg PO MOWEFR FLUID 10/07/23 baclofen 5 mg tablet 5 mg PO BID muscle spasms 02/21/24 calcium carbonate 600 mg-vitamin D3 10 mcg (400 unit) tablet 1 tab PO BID supplement 02/21/24 escitalopram oxalate 10 mg tablet 10 mg PO DAILY mood 02/21/24 metformin 500 mg tablet,extended release 24 hr 500 mg PO DAILY blood sugars 02/21/24 oxybutynin chloride 5 mg tablet,extended release 24 hr 5 mg PO DAILY bladder 02/21/24 rosuvastatin 20 mg tablet 20 mg PO QHS cholesterol 02/21/24 sacubitril 24 mg-valsartan 26 mg tablet (Entresto) 0.5 tab PO BID heart 02/21/24 acetaminophen 325 mg tablet 650 mg (2 x 325 mg) PO Q4H PRN PRN Fever, pain 1- 08/31 #0 tabs 02/29/24 bisacodyl 5 mg tablet,delayed release 5 mg PO BID bowels #0 tabs 02/29/24 budesonide 3 mg capsule,delayed,extended release 9 mg (3 x 3 mg) PO DAILY bowel disease #0 ea 02/29/24 dicyclomine 10 mg capsule 20 mg (2 x 10 mg) PO TIDAC bloating/digestion #0 caps 02/29/24 polyethylene glycol 3350 17 gram/dose oral powder (Miralax) 17 g PO DAILY bowels 1 month #510 grams 02/29/24 vancomycin 25 mg/mL oral solution (Firvanq) 125 mg (5 mL) PO Q6 preventive 10 days #200 mL 02/29/24 Physical Exam Narrative Seen and examined on the day of discharge. Discussed with the patient at the bedside. Patient had a small bowel movement yesterday. Abdominal pain has resolved. No fever. Patient tolerated clear diet which was advanced to soft diet. No acute issues. Physical exam General: Alert, Oriented x3, Cooperative. Fatigue HEENT: Atraumatic, PERRLA, EOMI, Normocephalic Oral: No Gingival or Mucosal Lesions/ Ulcerations Neck: Supple, No JVD, Negative Carotid Bruits Chest wall/Lungs: Air entry diminished in bilateral lung bases. No crepitation/rhonchi Cardiovascular: Regular rate, Regular Rhythm, Normal S1, Normal S2, No M/G/R Abdomen: Bowel Sounds Present, Soft, Non Tender, Non-Distended : No dysuria. No renal angle tenderness. No suprapubic tenderness. Extremities: No edema, Capillary Refill Less than 3 Seconds Skin: No rashes, No breakdown Musculoskeletal: No Tenderness to Palpation of Joints or Extremities Neurological: Cranial nerves II-XII grossly intact, DTR 2+/4. No acute focal neurological deficit. Psych/Mental Status: Flat affect. Weight / BMI Weight Weight: 128 lb 15.985 oz Body Mass Index (BMI) 19.5 ABG / Lab / Microbiology Data 02/29/24 06:30 02/29/24 06:30 Laboratory: Laboratory Results - last 24 hr 02/28/24 05:40: Phosphorus 2.0 L, Magnesium 1.6 02/29/24 06:30: WBC 4.2 L, RBC 2.97 L, Hgb 8.8 L, Hct 27.4 L, MCV 92.3, MCH 29.6, MCHC 32.1, RDW Std Deviation 48.5 H, RDW Coeff of Edita 14.3, Plt Count 199, MPV 10.6, Immature Gran % (Auto) 0.200, Neut % (Auto) 42.5 L, Lymph % (Auto) 43.5 H, Thurston % (Auto) 10.0, Eos % (Auto) 3.3, Baso % (Auto) 0.5, Absolute Neuts (auto) 1.8 L, Absolute Lymphs (auto) 1.82, Nucleated RBC % 0 Microbiology: Microbiology 02/25/24 17:42 Blood Culture (Wb) - Right Hand Blood Culture - Preliminary No growth in 48 hours. 02/25/24 17:22 Blood Culture (Wb) - Left Hand Blood Culture - Preliminary No growth in 48 hours. 02/26/24 00:00 Urine, Clean Catch Urine Culture - Final Culture exhibits no growth. 02/25/24 18:35 Urine, Clean Catch Legionella Antigen - Final 02/25/24 18:35 Urine, Clean Catch Streptococcus pneumoniae Antigen (M - Final 02/21/24 22:45 Stool Enteric Bacteriology - Final 02/21/24 22:45 Stool C. difficile GDH Antigen & Toxins - Final 02/21/24 22:45 Stool Clostridioides difficile (PCR) - Final 02/21/24 16:20 Stool Stool Occult Blood (EDUARDO) - Final Occult Blood Positive Meaningful Use Info Meaningful Use Diagnoses (Choose all that apply): None applicable Discharge Plan Admission Admit Date/Time: 02/21/24 19:53 Primary Reason for Your Visit: Ischemic colitis, C. difficile colitis Attending Provider: Ganesh Kiran Primary Care Provider: Joo Campos Consulting Providers: Ben Johnson; Yoandy Thakkar; Heike Horta Instructions Additional Instructions / Restrictions: Hold stool softeners, MiraLAX and bisacodyl if patient has more than 1 bowel movement per day Discharge Orders/Prescriptions Prescriptions: New bisacodyl 5 mg Tablet,Delayed Release (Dr/Ec) 5 mg PO BID Qty: 0 0RF Rx Instructions: Hold if more than 1 bowel movement per day acetaminophen 325 mg Tablet 650 mg PO Q4H PRN PRN (Reason: Fever, pain 1-08/31) Qty: 0 0RF budesonide 3 mg Capsule,Delayed,Extend.Release 9 mg PO DAILY Qty: 0 0RF dicyclomine 10 mg Capsule 20 mg PO TIDAC Qty: 0 0RF vancomycin [Firvanq] 25 mg/mL Recon Soln 125 mg PO Q6 10 Days Qty: 200 0RF polyethylene glycol 3350 [Miralax] 17 gram/dose powder 17 g PO DAILY 30 Days Qty: 510 0RF Rx Instructions: Hold if more than 1 bowel moods per day Continued trazodone 50 MG tablet 50 mg PO DAILY PRN (Reason: Anxiety) clonazepam 1 MG tablet 1 mg PO QHS citalopram 20 MG tablet 20 mg PO QHS multivitamin with folic acid [Thera] 1 TABLET tablet 1 tab PO DAILY Hold Instructions: Pt is ill clopidogrel 75 MG tablet 1 tab PO QHS Jardiance 10 mg tablet 10 mg PO DAILY metoprolol succinate 25 mg tablet extended release 24 hr 12.5 mg PO DAILY pantoprazole 40 MG tablet 40 mg PO BID cholecalciferol (vitamin D3) 25 mcg (1,000 unit) Tablet 50 mcg PO QHS Qty: 0 0RF Hold Instructions: Pt is ill spironolactone 25 mg tablet 12.5 mg PO MOWEFR oxybutynin chloride 5 mg tablet extended release 24hr 5 mg PO DAILY escitalopram oxalate 10 mg tablet 10 mg PO DAILY rosuvastatin 20 mg tablet 20 mg PO QHS Entresto 24-26 mg tablet 0.5 tab PO BID baclofen 5 mg tablet 5 mg PO BID Patient Comments: PLEASE SEE ATTACHED FOR DETAILED DIRECTIONS Held aspirin 81 mg tablet,delayed release (DR/EC) 81 mg PO DAILY Hold Instructions: Hold for 3 days metformin 500 mg tablet extended release 24 hr 500 mg PO DAILY Hold Instructions: Hold for 1 week calcium carbonate-vitamin D3 600 mg-10 mcg (400 unit) tablet 1 tab PO BID Hold Instructions: Hold for 1 week Referrals / Follow Up: Joo Campos DO [Primary Care Provider] - Shan Lockett DO [Med Staff - Active Staff] - Within 1 Month Yoandy Thakkar MD [Med Staff - Active Staff] - Within 1 Month (As needed for C. difficile) Disposition Disposition (needs filled in before D/C Order can be placed): [facility] Charges/Coding Visit Charges Inpatient E&M: 58200 Disch Hosp >30min
--- NOTE | 2024-02-29 07:35 | PCM.TXEXTCAR ---
Diet Diet Order/Speech Therapy: 02/29/24 07:34 Diet: Transitional Type of Dietary Supplement:: Ensure Plus High Protein Is pt able to select menu?: No Diet Comments: 1999 gloria Routine Orders/Code Status Suppository Type: Dulcolax 10mg Suppository Frequency: Daily PRN Code Status: Full Code Wound(s) diaper/groin: Wound Type: galded from diarrhea Therapies Weight Bearing: Weight bearing as tolerated Extremity Affected:: Bilateral Lower Physical Therapy: Eval and Treat Occupational Therapy: Eval and Treat Speech Therapy: Eval and Treat Problem/Diagnosis (1) CVA (cerebral vascular accident): Status: Inactive Code(s): I63.9 - Cerebral infarction, unspecified Plan This 68-year-old female was admitted with abdominal pain, nausea, vomiting and diarrhea progressively worse over past few days patient was seen [address] was done and was discharged on stool softener MiraLAX. #Acute colitis Was admitted with a complaint of bright red rectal bleeding left lower quadrant abdominal pain. CT of the abdomen and pelvis showed new inflammation along the length of the descending colon concerning for infectious or inflammatory colitis colonoscopy showed diverticulosis in the rectosigmoid colon, sigmoid colon and hepatic flexure, as well as patchy moderate inflammation in the sigmoid colon, descending colon and at the heaptic and splenic flexure and in the ascending colon due to ischemic colitis. Antibiotics broadened to vancomycin and Zosyn after she continued to have a fever. Fever has now resolved. CT of the chest abdomen and pelvis showed persistent BX submucosal thickening in the distal transverse, throughout the descending and sigmoid colon consistent with a diffuse colitis with pericolonic inflammatory stranding but no perforation or abscess and new free-flowing bilateral pleural effusions with bibasilar atelectasis. Continuing IV vancomycin and Zosyn. White cell count is trended down from 13.1 yesterday to 6. Patient was evaluated by telecommunications network engineer 02/27: Patient passing flatus but no bowel movement. On a stool softener and MiraLAX. Clear liquid diet started. Patient was evaluated by ID and vancomycin discontinued. Continue IV Zosyn and p.o. vancomycin. Leukocytosis has resolved. Hypokalemia, hypomagnesemia and hypophosphatemia:electrolyte replacement ordered. #Bilateral pleural effusions chest CT shwoed bilateral free flowing pleural effusions. patient on room air. Had previously been on 2 L of oxygen. Per records, and cumulative positive fluid balance by 14,405 mL. I doubt this is acute rate as patient does have a Juarez catheter in situ and has been using the bathroom on her own which a urine is not adequately being measured. Will consider diuresis if patient requires increasing oxygen amounts. check BNP. Echo from September 2023 showed EF of 55% and no evidence of diastolic dysfunction with no regional wall motion abnormality seen. #Hypotension: resolved. #Lower GI bleed: Due to acute colitis as above. Resolved #SUJATHA: resolved. #Anemia: Patient has had acute anemia with hemoglobin of 8.1. Hemoglobin on 03/11/2024 was 12.2 but this is likely due to acute blood loss anemia from GI bleed due to ischemic colitis. GI on board. Will monitor and if hemoglobin trends to less than 7, will consider transfusion. #Type 2 diabetes mellitus: lantus resumed. ISS. Accuchecks ACHS #History of ischemic cardiomyopathy, s/p biventricular ICD: stable. #Benign essential hypertension:metoprolol and entresto resumed. Spironolactone remains on hold #HFpEF: on entresto and metoprolol. SPironolactone on hold #History of cerebral palsy: Stable #History of CVA: On aspirin and Plavix on hold due to the GI bleed #Hyperlipidemia: On statin #Anxiety and depression: on citalopram and clonazepam #Left upper renal pole cyst:per radiologist, no further imaging required. DVT prophylaxis: SCDs. Discussed with the human services case manager. Patient's wanted to go to TCU. Allergies/Procedures Done in Hospital Allergies No Known Allergies Allergy (Verified 02/21/24 14:04) Type of Care/Length of Stay Estimated LOS: Convalescent Care Less Than 30 days Type of Care Needed: Skilled Rehab Potential: Good Prognosis: Good Additional Orders/Day of Discharge Day of Discharge: 02/29/24 Dietary and Speech Recommendations Dietitian Recommendations/Changes: Recommend advance diet as tolerated to 1600 calorie/consistent carbohydrate; cardiac; high fiber Provide chocolate ensure plus high protein w/ meals until po intake consistently improves Discharge Plan Admission Admit Date/Time: 02/21/24 19:53 Primary Reason for Your Visit: Ischemic colitis, C. difficile colitis Attending Provider: Ganesh Kiran Primary Care Provider: Joo Campos Consulting Providers: Ben Johnson; Yoandy Thakkar; Heike Horta Instructions Additional Instructions / Restrictions: Hold stool softeners, MiraLAX and bisacodyl if patient has more than 1 bowel movement per day Discharge Orders/Prescriptions Prescriptions: New bisacodyl 5 mg Tablet,Delayed Release (Dr/Ec) 5 mg PO BID Qty: 0 0RF Rx Instructions: Hold if more than 1 bowel movement per day acetaminophen 325 mg Tablet 650 mg PO Q4H PRN PRN (Reason: Fever, pain -08/31) Qty: 0 0RF budesonide 3 mg Capsule,Delayed,Extend.Release 9 mg PO DAILY Qty: 0 0RF dicyclomine 10 mg Capsule 20 mg PO TIDAC Qty: 0 0RF vancomycin [Firvanq] 25 mg/mL Recon Soln 125 mg PO Q6 10 Days Qty: 200 0RF polyethylene glycol 3350 [Miralax] 17 gram/dose powder 17 g PO DAILY 30 Days Qty: 510 0RF Rx Instructions: Hold if more than 1 bowel moods per day Continued trazodone 50 MG tablet 50 mg PO DAILY PRN (Reason: Anxiety) clonazepam 1 MG tablet 1 mg PO QHS citalopram 20 MG tablet 20 mg PO QHS multivitamin with folic acid [Thera] 1 TABLET tablet 1 tab PO DAILY Hold Instructions: Pt is ill clopidogrel 75 MG tablet 1 tab PO QHS Jardiance 10 mg tablet 10 mg PO DAILY metoprolol succinate 25 mg tablet extended release 24 hr 12.5 mg PO DAILY pantoprazole 40 MG tablet 40 mg PO BID cholecalciferol (vitamin D3) 25 mcg (1,000 unit) Tablet 50 mcg PO QHS Qty: 0 0RF Hold Instructions: Pt is ill spironolactone 25 mg tablet 12.5 mg PO MOWEFR oxybutynin chloride 5 mg tablet extended release 24hr 5 mg PO DAILY escitalopram oxalate 10 mg tablet 10 mg PO DAILY rosuvastatin 20 mg tablet 20 mg PO QHS Entresto 24-26 mg tablet 0.5 tab PO BID baclofen 5 mg tablet 5 mg PO BID Patient Comments: PLEASE SEE ATTACHED FOR DETAILED DIRECTIONS Held aspirin 81 mg tablet,delayed release (DR/EC) 81 mg PO DAILY Hold Instructions: Hold for 3 days metformin 500 mg tablet extended release 24 hr 500 mg PO DAILY Hold Instructions: Hold for 1 week calcium carbonate-vitamin D3 600 mg-10 mcg (400 unit) tablet 1 tab PO BID Hold Instructions: Hold for 1 week Referrals / Follow Up: Joo Campos DO [Primary Care Provider] - Shan Lockett DO [Med Staff - Active Staff] - Within 1 Month Yoandy Thakkar MD [Med Staff - Active Staff] - Within 1 Month (As needed for C. difficile) Disposition Disposition (needs filled in before D/C Order can be placed): [facility]
[2024-02-29 07:56] LABS: Differential Comment SCANNED
[2024-02-29] MEDS: Baclofen 10 MG Tablet 5 MG PO (08:51)
[2024-02-29] MEDS: SACUBITRIL/VALSARTAN 24/26 MG TABLET 1 EACH PO (08:51)
[2024-02-29] MEDS: Bisacodyl 5 MG Tablet PO (08:51)
[2024-02-29] MEDS: Polyethylene Glycol 3350 17 GM PACKET PO (08:51)
[2024-02-29] MEDS: Tolterodine Tartrate 2 MG CAP.SA PO (08:51)
[2024-02-29] MEDS: Budesonide 3 MG CAPSULE.EC 9 MG PO (08:51)
[2024-02-29] MEDS: Magnesium Chloride 64 MG Delay Rel.Tablet 128 MG PO (08:51)
[2024-02-29] MEDS: Pantoprazole Sodium 40 MG Tablet PO (08:53)
[2024-02-29] MEDS: Menthol/Lanolin/Calamine/Znox 113 GM Tube 1 APPLIC TOPICAL (08:53)
[2024-02-29 09:30] VITALS: BP 118/63; PULSE 73; RESP 16; TEMP 36.9; O2SAT 95
--- NOTE | 2024-02-29 10:25 | PCM.PN.ID ---
Physical Exam Narrative Feeling better, abd pain resolved, diarrhea improved, no fever Const alert and no apparent distress General Appearance: cooperative Resp normal air movement and clear to auscultation bilaterally Cardio regular rate and regular rhythm GI soft to palpation, non-tender and non-distended Skin no rashes or lesions noted ID ID: Route of nutrition/ use of supplements: [] Nutritional Intake: [] IV Site: [] Juarez Catheter: [] Assessment & Plan Assessment/Plan (1) Colitis: PLAN: Cdiff pcr (+) but toxin neg. Much improved. Plan on 10 more days po vanc 125mg 4x/day. Will follow, d/w Dr. Kiran
--- NOTE | 2024-02-29 11:45 | PHA.DC_ITS ---
Pharmacy [place] Med Reconciliation Pharmacy Service has performed discharge medication reconciliation for this patient. The patient's discharge medication list was reviewed for discrepancies and discrepancies were resolved. Medications at Discharge Home Medications citalopram 20 mg tablet 20 mg PO QHS depression 11/18/14 clonazepam 1 mg tablet 1 mg PO QHS anxiety 11/18/14 multivitamin with folic acid 400 mcg tablet (Thera) 1 tab PO DAILY vitamin 11/18/14 trazodone 50 mg tablet 50 mg PO DAILY PRN Anxiety 11/18/14 clopidogrel 75 mg tablet 1 tab PO QHS anti platelet 05/18/16 empagliflozin 10 mg tablet (Jardiance) 10 mg PO DAILY diabetes 09/28/23 metoprolol succinate 25 mg tablet,extended release 24 hr 12.5 mg PO DAILY blood pressure 09/28/23 pantoprazole 40 mg tablet,delayed release 40 mg PO BID stomach acid 09/28/23 cholecalciferol (vitamin D3) 25 mcg (1,000 unit) tablet 50 mcg (2 x 25 mcg (1,000 unit)) PO QHS supplement #0 tabs 09/30/23 aspirin 81 mg tablet,delayed release 81 mg PO DAILY heart 10/01/23 spironolactone 25 mg tablet 12.5 mg PO MOWEFR FLUID 10/07/23 baclofen 5 mg tablet 5 mg PO BID 02/21/24 calcium carbonate 600 mg-vitamin D3 10 mcg (400 unit) tablet 1 tab PO BID 02/21/24 escitalopram oxalate 10 mg tablet 10 mg PO DAILY 02/21/24 metformin 500 mg tablet,extended release 24 hr 500 mg PO DAILY 02/21/24 oxybutynin chloride 5 mg tablet,extended release 24 hr 5 mg PO DAILY 02/21/24 rosuvastatin 20 mg tablet 20 mg PO QHS 02/21/24 sacubitril 24 mg-valsartan 26 mg tablet (Entresto) 0.5 tab PO BID 02/21/24 acetaminophen 325 mg tablet 650 mg (2 x 325 mg) PO Q4H PRN PRN Fever, pain 1- 08/31 #0 tabs 02/29/24 bisacodyl 5 mg tablet,delayed release 5 mg PO BID #0 tabs 02/29/24 budesonide 3 mg capsule,delayed,extended release 9 mg (3 x 3 mg) PO DAILY #0 ea 02/29/24 dicyclomine 10 mg capsule 20 mg (2 x 10 mg) PO TIDAC #0 caps 02/29/24 polyethylene glycol 3350 17 gram/dose oral powder (Miralax) 17 g PO DAILY 1 month #510 grams 02/29/24 vancomycin 25 mg/mL oral solution (Firvanq) 125 mg (5 mL) PO Q6 10 days #200 mL 02/29/24
--- NOTE | 2024-02-29 11:52 | CASEMGMT ---
Social Work Precert had been attained for pt go to to TCU today, skilled. SW sent all discharge paperwork to TCU. SW let pt and in room know pt will go to TCU today. No fruther needs at this time, bedside RN also aware, already had called report. MITCHEL Rowley
[2024-02-29 13:06] LABS: Anion Gap 6 (5-15); BUN 4 mg/dL (7-18); BUN/Creat Ratio 5.5 RATIO (10-20); Calcium,Total 7.6 mg/dL (8.5-10.1); Chloride 115 mmol/L (98-107); Creatinine, Serum 0.72 mg/dL (0.55-1.02); EST Glomerular Filtration Rate 85 mL/min (>60); Est Glom Filt Rate - Afr Amer 102 mL/min (>60); Estimated Creatinine Clearance 59.58 ml/min; Glucose 119 mg/dL (74-106); Magnesium 1.6 mg/dL (1.6-2.6); Potassium 3.3 mmol/L (3.5-5.1); Sodium Level 144 mmol/L (136-145)
== END 2024-02-29 13:12 | disposition skilled nursing facility (03) | DRG 394 ==
LOC: ED 19:31 → MS3 20:15
PROVIDERS: Anesthesiology; Family Medicine; Internal Medicine Gastroenterology; Student in an Organized Health Care Education/Training Program; Admitting Provider Internal Medicine; Emergency Provider Emergency Medicine; PCP Student in an Organized Health Care Education/Training Program; Visit Provider Internal Medicine
PROC: 0DJD8ZZ Inspection of Lower Intestinal Tract, Via Natural or Artificial Opening Endoscopic (ICD-10-PCS; CPT 45378; principal; 2024-02-22 12:25)
DX: K55.052 Diffuse acute (reversible) ischemia of intestine, part unspecified (principal); N17.9 Acute kidney failure, unspecified; D62 Acute posthemorrhagic anemia; I69.951 Hemiplegia and hemiparesis following unspecified cerebrovascular disease affecting right dominant side; I50.32 Chronic diastolic (congestive) heart failure; A04.72 Enterocolitis due to Clostridium difficile, not specified as recurrent; E83.39 Other disorders of phosphorus metabolism; I11.0 Hypertensive heart disease with heart failure; E11.22 Type 2 diabetes mellitus with diabetic chronic kidney disease; I95.9 Hypotension, unspecified; F32.A Depression, unspecified; G80.9 Cerebral palsy, unspecified; K59.03 Drug induced constipation; K52.9 Noninfective gastroenteritis and colitis, unspecified; I25.5 Ischemic cardiomyopathy; I25.10 Atherosclerotic heart disease of native coronary artery without angina pectoris; E78.00 Pure hypercholesterolemia, unspecified; K62.3 Rectal prolapse; K57.30 Diverticulosis of large intestine without perforation or abscess without bleeding; F41.9 Anxiety disorder, unspecified; E87.6 Hypokalemia; E83.42 Hypomagnesemia; T40.605A Adverse effect of unspecified narcotics, initial encounter; N28.1 Cyst of kidney, acquired; Z79.02 Long term (current) use of antithrombotics/antiplatelets; Z79.82 Long term (current) use of aspirin; Z79.84 Long term (current) use of oral 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 drugs; Z87.891 Personal history of nicotine dependence; Z95.5 Presence of coronary angioplasty implant and graft; Z95.810 Presence of automatic (implantable) cardiac defibrillator
CPT/HCPCS: 36415; 71045; 71260; 74176; 74177; 80048; 80053; 80202; 81001; 82274; 82962; 83036; 83605; 83690; 83735; 84100; 85025; 85610; 85730; 87040; 87086; 87449; 87493; 87506; 88305; 93005; 96360; 96361; 97116; 97162; 97166; 97530; 97535; 97802; 99283; 99285; J7030; J7040; J7050; J7120; Q9967; A4216; J0295; J2405

== ENCOUNTER 2024-02-29 13:20 | Inpatient (IN) | payer MEDICARE, SELFPAY ==
[2024-02-29 13:31] VITALS: BP 136/62; PULSE 75; RESP 16; TEMP 36.8; O2SAT 95; BMI 22.2
[2024-02-29 14:02] VITALS: BMI 22.2
[2024-02-29] MEDS: Dicyclomine 10 MG Capsule 20 MG PO (17:38)
[2024-02-29] MEDS: Calcium Carb/Vitamin D 1 TABLET Tablet PO (17:39)
[2024-02-29] MEDS: Vancomycin 125 MG/5 ML Susp PO.SYRINGE PO ×2 (17:40→23:07)
[2024-02-29] MEDS: Ensure Plus High Protein 120 ML LIQUID PO ×2 (17:47→21:57)
--- NOTE | 2024-02-29 19:34 | HP.PCM_ITS ---
HPI - General General Date of Admission: 02/29/24 Date of Service: 02/29/24 Chief Complaint: Here for rehabilitation. HPI Narrative 02/21/2024 BETTY CARO, is a 69 Female who presents to [facility] ED with abdominal pain. Abdominal pain, nausea, vomiting, diarrhea worse over several days. CT 3 days prior showed constipation, ExLax given at home. Had large BM, now diarrhea, BM red. Diffuse cramping, periumbilical pain, worse with eating. Chills. WBC 20.5, Hemoglobin 12.2, BUN 31, Creatinine 2.08, Lactate 2.3. UA negative. CT abdomen/pelvis shows colitis, left renal mass. IV fluids, Morphine, Zofran, Unasyn given. 02/21/2024 Admit to [facility]. IV antibiotics, consult GI for colitis. Repeat CT left renal mass showed left renal cyst. 02/22/2024 Abdominal pain, Blood pressure 80 systolic, negative rectal bleeding. Hold Metoprolol, give IV fluids for low blood pressure. IV fluids for SUJATHA. 02/22/2024 Dr. Lockett colonoscopy showed rectal prolapse, diverticulosis, ischemic colitis. 02/23/2024 Abdominal pain. On Oral diet. Ischemic colitis 2/2 severe constipation.. 02/24/2024 Abdominal pain with eating. Hold Entresto 2/2 low blood pressure, resume Metoprolol. 02/25/2024 Weak, oxygen 2 liters per nasal cannula, Fever. Chest X-ray showed pneumonia, Unaisyn 3gm iv q8, Zithromax 500mg iv q24. PT/OT SNF. 02/26/2024 Lower abdominal pain, diarrhea, fever. WBC decreased to 13.1, K 2.7. CT chest/abdomen/pelvis. Vancomycin, Zosyn, Azithromycin for colitis/fever after panculture. Chest X-ray LLL infiltrate. 02/27/2024 Abdominal pain improved to 6-[address] shows diffuse colitis, continue Vancomycin/Zosyn, WBC 6. IV fluids. Consider diuresis for bilateral pleural effusions. 02/28/2024 Zosyn IV, Vancomycin PO for colitis. Replace hypokalemia, hypomagnesemia, hypophosphatemia. C. Diff PCR positive, toxin negative. Diarrhea improved, decreased cramping on dicyclomine. Budesonide for colitis. 02/29/2024 Admit to TCU with debility, here for rehabilitation, strengthening, prior to discharge home with . [facility] Medical History (Updated 02/29/24 @ 19:[address] Alonso Marte MD) Anxiety and depression AV node dysfunction Cardiac resynchronization therapy defibrillator ([employer]) in place Cerebral palsy Congestive heart failure (CHF) Coronary artery disease CVA (cerebral vascular accident) Diabetes mellitus Former smoker Heart failure with reduced ejection fraction High cholesterol Hyperlipidemia Hypertension ICD (implantable cardioverter-defibrillator) in place Insomnia Ischemic cardiomyopathy Myocarditis Pacemaker PFO (patent foramen ovale) Presence of biventricular implantable cardioverter-defibrillator Restless legs Transient ischemic attack Ulcer Home Medications citalopram 20 mg tablet 20 mg PO QHS depression 11/18/14 [History Last Taken 10/06/23] clonazepam 1 mg tablet 1 mg PO QHS anxiety 11/18/14 [History Last Taken 10/06/23] multivitamin with folic acid 400 mcg tablet (Thera) 1 tab PO DAILY vitamin 11/18/14 [History Last Taken 10/07/23] trazodone 50 mg tablet 50 mg PO DAILY PRN Anxiety 11/18/14 [History Last Taken 10/06/23] clopidogrel 75 mg tablet 1 tab PO QHS anti platelet 05/18/16 [History Last Taken 10/06/23] empagliflozin 10 mg tablet (Jardiance) 10 mg PO DAILY diabetes 09/28/23 [History Last Taken 10/07/23] metoprolol succinate 25 mg tablet,extended release 24 hr 12.5 mg PO DAILY blood pressure 09/28/23 [History Last Taken 10/07/23] pantoprazole 40 mg tablet,delayed release 40 mg PO BID stomach acid 09/28/23 [History Last Taken 10/07/23] cholecalciferol (vitamin D3) 25 mcg (1,000 unit) tablet 50 mcg (2 x 25 mcg (1,000 unit)) PO QHS supplement #0 tabs 09/30/23 [Rx Last Taken 10/06/23] aspirin 81 mg tablet,delayed release 81 mg PO DAILY heart 10/01/23 [History Last Taken 10/07/23] spironolactone 25 mg tablet 12.5 mg PO MOWEFR FLUID 10/07/23 [History Last Taken 10/06/23] baclofen 5 mg tablet 5 mg PO BID muscle spasms 02/21/24 [History Last Taken Unknown] calcium carbonate 600 mg-vitamin D3 10 mcg (400 unit) tablet 1 tab PO BID supplement 02/21/24 [History Last Taken Unknown] escitalopram oxalate 10 mg tablet 10 mg PO DAILY mood 02/21/24 [History Last Taken Unknown] metformin 500 mg tablet,extended release 24 hr 500 mg PO DAILY blood sugars 02/21/24 [History Last Taken Unknown] oxybutynin chloride 5 mg tablet,extended release 24 hr 5 mg PO DAILY bladder 02/21/24 [History Last Taken Unknown] rosuvastatin 20 mg tablet 20 mg PO QHS cholesterol 02/21/24 [History Last Taken Unknown] sacubitril 24 mg-valsartan 26 mg tablet (Entresto) 0.5 tab PO BID heart 02/21/24 [History Last Taken Unknown] acetaminophen 325 mg tablet 650 mg (2 x 325 mg) PO Q4H PRN PRN Fever, pain 1- 08/31 #0 tabs 02/29/24 [Rx Last Taken Unknown] bisacodyl 5 mg tablet,delayed release 5 mg PO BID bowels #0 tabs 02/29/24 [Rx Last Taken Unknown] budesonide 3 mg capsule,delayed,extended release 9 mg (3 x 3 mg) PO DAILY bowel disease #0 ea 02/29/24 [Rx Last Taken Unknown] dicyclomine 10 mg capsule 20 mg (2 x 10 mg) PO TIDAC bloating/digestion #0 caps 02/29/24 [Rx Last Taken Unknown] polyethylene glycol 3350 17 gram/dose oral powder (Miralax) 17 g PO DAILY bowels 1 month #510 grams 02/29/24 [Rx Last Taken Unknown] vancomycin 25 mg/mL oral solution (Firvanq) 125 mg (5 mL) PO Q6 preventive 10 days #200 mL 02/29/24 [Rx Last Taken Unknown] Allergy/AdvReac Type Severity Reaction Status Date / Time No Known Allergies Allergy Verified 02/21/24 14:04 Family History Father Heart disease Mother Anxiety and depression Suicide and self-inflicted injury from suicide age 52. Surgical History History of cardiac defibrillator placement History of cholecystectomy History of coronary artery stent placement History of skin surgery S/P colon polypectomy Social History household members: spouse Smoking Status: Former smoker how long ago did patient quit smokin-1.5 ppd from teen until quit in 2008. alcohol intake: never substance use type: does not use ROS Constitutional Constitutional: Denies chills, fever(s) or weight gain ENT HEENT: Denies headache(s), nasal congestion or nasal discharge Cardiovascular Cardiovascular: Denies chest pain or palpitations Respiratory/Chest Respiratory/Chest: Denies cough, excessive phlegm production or shortness of breath with exertion Gastrointestinal Gastrointestinal: Denies abdominal pain, nausea or vomiting Genitourinary Genitourinary: Denies dysuria Musculoskeletal Musculoskeletal: Denies joint pain or joint swelling Integumentary Integumentary: Denies rash or wounds Neurologic Neurologic: Denies focal weakness, numbness or tingling Psychiatric Psychiatric: Denies anxiety, auditory hallucinations, depression, homicidal ideation or suicidal ideation Vital Signs Vital Signs Vital Signs: 02/29/24 13:49 02/29/24 13:31 Temperature 98.2 F Temperature Source Temporal Pulse Rate 75 Pulse Rhythm Regular Pulse Strength Normal (2+) Respiratory Rate 16 Respiratory Effort Normal Non-Labored Respiratory Depth Normal Respiratory Pattern Normal Blood Pressure 136/62 H Blood Pressure Mean 86 Blood Pressure Source Monitor Blood Pressure Position Sitting Blood Pressure Location Left Arm Pulse Ox 95 Oxygen Delivery Method Room Air Room Air Weight Weight: 66.315 kg Body Mass Index (BMI) 22.2 Physical Exam Const alert General Appearance: cooperative HEENT normocephalic Eyes PERRL and EOMs intact bilaterally Neck supple, no JVD and no carotid bruits Resp normal respiratory effort, normal air movement and clear to auscultation bilaterally Cardio regular rate and regular rhythm GI normal to inspection, nondistended, normoactive bowel sounds, non-tender and non-distended Extremity normal capillary refill General Extremity: Negative for edema Skin no rashes or lesions noted General Skin Exam: no breakdown Psych affect normal Appearance: appropriate Assessment & Plan Assessment/Plan (1) Debility: (2) Colitis: (3) Gastrointestinal bleeding, lower: (4) Acute kidney injury: (5) Constipation: (6) Clostridium difficile colitis: (7) CVA (cerebral vascular accident): (8) HLD (hyperlipidemia): (9) Muscle spasm: (10) GERD (gastroesophageal reflux disease): (11) Vitamin D deficiency: (12) Depression: (13) Anxiety: (14) Diabetes mellitus: (15) Heart failure with reduced ejection fraction: (16) Overactive bladder: (17) Insomnia: (18) Leg cramp: PLAN: Plan 69 year old female with below past medical history hospitalized for colitis, rec bolivar bleeding, SUJATHA, c.diff, complicated by electrolyte abnormalities, admitted to TCU with debility, here for rehabilitation, strengthening, prior to dsicharge home with . * Debility - PT/OT. * Pain - Tylenol 1000mg q6 prn pain (1-10). * Bowel - Miralax 17gm daily, Dulcolax 5mg bid. * Adult immunization - Administer pneumonia vaccine, covid vaccine, flu vaccine as appropriate. * DVT prophylaxis - Hold, recent bleed, on dual antiplatelet therapy. * Stroke - Aspirin 81mg daily, Plavix 75mg daily. * Hyperlipidemia - Atorvastatin 40mg qhs. * Muscle spasm - Baclofen 5mg bid. * Colitis (c. diff) - Budesonide 9mg daily, Vancomycin 125mg q6 x 10 days. * Calcium deficiency - Calcium D bidcm. * Vitamin D deficiency - D3 25mcg daily. * Insomnia - Clonazepam 1mg qhs, Trazodone 50mg qhs prn, stable chronic care home use, GDR not recommended. * Abdominal cramping - Dicyclomine 20mg tidac. * HFrEF - Metoprolol succinate 15mg daily, Entresto 24/26mg 1/2 tablet bid, Jardiance 10mg daily, Aldactone 12.5mg mwf. * Nutrition - Ensure 120ml 4x/day, MVI daily. * Depression - Escitalopram 10mg daily, stable chronic care home use, GDR not recommended. * Diabetes Mellitus II - Metformin XR 500mg daily. * GERD - Pantoprazole 40mg bid. * Overactive bladder - Tolterodine 2mg daily.
[2024-02-29] MEDS: clonazePAM 1 MG Tablet PO (21:57)
[2024-02-29] MEDS: Atorvastatin Calcium 40 MG Tablet PO (22:01)
[2024-02-29] MEDS: SACUBITRIL/VALSARTAN 24/26 MG TABLET 0.5 EACH PO (22:01)
[2024-02-29] MEDS: Pantoprazole Sodium 40 MG Tablet PO (22:02)
[2024-02-29] MEDS: Cholecalciferol (VIT D3) 25 MCG TABLET (1,000 UNITS) 50 MCG PO (22:02)
[2024-02-29] MEDS: Baclofen 10 MG Tablet 5 MG PO (22:02)
[2024-02-29] MEDS: 0.9% Saline Lock 10 ML Syringe IV (22:03)
[2024-02-29 22:10] VITALS: BP 128/51; PULSE 61; RESP 16
[2024-03-01] MEDS: Vancomycin 125 MG/5 ML Susp PO.SYRINGE PO ×3 (05:41→20:06)
[2024-03-01] MEDS: Dicyclomine 10 MG Capsule 20 MG PO ×3 (05:41→20:00)
[2024-03-01 05:55] LABS: Absolute Lymphocyte Count 2.39 X10^3/uL (0.83-4.51); Absolute Neutrophil Count 1.7 X10^3/uL (2.0-7.7); Basophil# 0.02 X10^3/uL; Basophil% 0.4 % (0-1); Eosinophil# 0.12 X10^3/uL; Eosinophils% 2.6 % (0-5); Hematocrit 25.7 % (37-47); Hemoglobin 8.2 g/dL (12.0-15.0); Lymphocyte # 2.39 X10^3/ul (0.83-4.51); Lymphocyte % 51.1 % (19-41); Mean Corp Hgb Conc 31.9 g/dL (32-36); Mean Corpuscular Volume 94.1 fL (81-99); Mean Platelet Vol. 10.2 fl (6.2-12.0); Monocyte# 0.47 X10^3/uL; NRBC Flagged by Analyzer 0 % (0-5); Neutrophil # 1.65 X10^3/uL (2.7-7.7); Neutrophil % 35.3 % (47-70); Platelet Count 166 K/mm3 (150-450); RBC Distribution Width CV 14.6 % (11.6-14.6); RBC Distribution Width SD 49.7 fl (35.1-43.9); Red Blood Count 2.73 M/mm3 (4.2-5.4); White Blood Count 4.7 K/mm3 (4.4-11.0)
[2024-03-01 05:56] VITALS: PULSE 61; RESP 18; O2SAT 95
[2024-03-01 06:17] LABS: Anion Gap 2 (5-15); BUN 5 mg/dL (7-18); Calcium,Total 7.7 mg/dL (8.5-10.1); Chloride 114 mmol/L (98-107); Creatinine, Serum 0.72 mg/dL (0.55-1.02); EST Glomerular Filtration Rate 85 mL/min (>60); Est Glom Filt Rate - Afr Amer 103 mL/min (>60); Estimated Creatinine Clearance 65.06 ml/min; Glucose 163 mg/dL (74-106); Potassium 3.2 mmol/L (3.5-5.1); Sodium Level 144 mmol/L (136-145)
[2024-03-01 07:53] LABS: Bedside Glucose 141 mg/dL (74-106)
[2024-03-01] MEDS: Budesonide 3 MG CAPSULE.EC 9 MG PO (08:47)
[2024-03-01] MEDS: Polyethylene Glycol 3350 17 GM PACKET PO (08:48)
[2024-03-01] MEDS: Calcium Carb/Vitamin D 1 TABLET Tablet PO ×2 (08:49→20:01)
[2024-03-01] MEDS: Multivitamins,Therapeutic Tablet 1 TABLET PO (08:49)
[2024-03-01] MEDS: SACUBITRIL/VALSARTAN 24/26 MG TABLET 0.5 EACH PO ×2 (08:50→20:01)
[2024-03-01] MEDS: Empagliflozin 10 MG Tablet PO (08:51)
[2024-03-01 08:52] VITALS: BP 128/45; PULSE 62
[2024-03-01] MEDS: Pantoprazole Sodium 40 MG Tablet PO ×2 (08:52→20:03)
[2024-03-01] MEDS: Tolterodine Tartrate 2 MG CAP.SA PO (08:52)
[2024-03-01] MEDS: Metoprolol(XL)Succ 25 MG Tablet 12.5 MG PO (08:52)
[2024-03-01] MEDS: Spironolactone 25 MG Tablet 12.5 MG PO (08:53)
[2024-03-01] MEDS: Baclofen 10 MG Tablet 5 MG PO ×2 (08:53→20:02)
[2024-03-01] MEDS: Clopidogrel Bisulfate 75 MG Tablet PO (08:53)
[2024-03-01] MEDS: Escitalopram Oxalate 10 MG Tablet PO (08:54)
[2024-03-01] MEDS: Ensure Plus High Protein 120 ML LIQUID PO (09:05)
[2024-03-01] MEDS: Potassium Chloride Oral Tablet 20 MEQ PO ×2 (09:08→20:00)
[2024-03-01] MEDS: Tuberculin,Purif.prot.deriv. 50 TU/ML Vial 0.1 ML ID (09:16)
[2024-03-01 09:19] VITALS: BP 128/45; PULSE 62
--- NOTE | 2024-03-01 12:15 | NURSING ---
Ruching Machine Operator Note; Activity Asset: Gunner Nazario is independent in her choice of daily activities. During activity assessment she stated she was not interested in the computer hardware developer or therapy dog. I asked about group activities or word puzzles and she said no she was fine in her room with the tv and her phone. Her family will visit and bring her items she may need or want. I left her the daily chronicle and informed her of the lobby and all the books, games and activities we offer. Staff will remind her of weekly activities and respect her right to say no.
--- NOTE | 2024-03-01 13:11 | NURSING ---
PT COMPLAINING OF BEING NAUSEATED AFTER EATING. PT STATED SHE WAS SAME WAY YESTERDAY AFTER EATING. NOTIFIED,RN AWARE
[2024-03-01] MEDS: proCHLORPERazine 5 MG Tablet 10 MG PO ×2 (13:38→18:11)
--- NOTE | 2024-03-01 14:52 | PCM.PN.DRR ---
Documented by User: Carlotta Singletary 03/01/24 15:37 TCU RX Drug Regimen Review Subjective/Objective Subjective/Objective: Subjective: TCU Admission. 69 YOF presented to the ER with abdominal pain. Hospitalized for colitis, rectal bleeding, SUJATHA, c.diff, complicated by electrolyte abnormalities. Admitted to TCU with debility for strengthening and rehabilitation. Objective: Allergies No Known Allergies Allergy (Verified 02/21/24 14:04) Current Medications Generic Name Dose Route Start Last Admin Trade Name Ava PRN Reason Stop Dose Admin Acetaminophen 1,000 mg 02/29/24 20:01 Acetaminophen 500 Mg Tablet PO Q6H PRN PRN Pain Score 1-10 Aspirin 81 mg 03/04/24 08:00 Aspirin E.C. 81 Mg Tablet PO DAILYCM [facility] Atorvastatin Calcium 40 mg 02/29/24 22:00 02/29/24 22:01 Atorvastatin Calcium 40 Mg Tablet PO 40 mg QHS VERONA Administration Baclofen 5 mg 02/29/24 22:00 03/01/24 08:53 Baclofen 10 Mg Tablet PO 5 mg BID VERONA Administration Bisacodyl 5 mg 03/01/24 07:50 Bisacodyl 5 Mg Tablet PO BID PRN Constipation Budesonide 9 mg 03/01/24 10:00 03/01/24 08:47 Budesonide 3 Mg Capsule.Ec PO 9 mg DAILY VERONA Administration Calcium/Vitamin D 1 tablet 02/29/24 17:00 03/01/24 08:49 Calcium Carb/Vitamin D 1 Tablet Tablet PO 1 tablet BIDCM VERONA Administration Cholecalciferol 50 mcg 02/29/24 22:00 02/29/24 22:02 Cholecalciferol (Vit D3) 25 Mcg Tablet (1,000 Units) PO 50 mcg QHS VERONA Administration Clonazepam 1 mg 02/29/24 22:00 02/29/24 21:57 Clonazepam 1 Mg Tablet PO 1 mg QHS VERONA Administration Clopidogrel Bisulfate 75 mg 03/01/24 10:00 03/01/24 08:53 Clopidogrel Bisulfate 75 Mg Tablet PO 75 mg DAILY VERONA Administration Dicyclomine HCl 20 mg 02/29/24 16:45 03/01/24 11:27 Dicyclomine 10 Mg Capsule PO 20 mg TIDAC VERONA Administration Empagliflozin 10 mg 03/01/24 10:00 03/01/24 08:51 Empagliflozin 10 Mg Tablet PO 10 mg DAILY VERONA Administration Escitalopram Oxalate 10 mg 03/01/24 10:00 03/01/24 08:54 Escitalopram Oxalate 10 Mg Tablet PO 10 mg DAILY VERONA Administration Metformin HCl 500 mg 03/07/24 08:00 Metformin (Xr) 500 Mg Tablet PO DAILYCM [facility] Metoprolol Succinate 12.5 mg 03/01/24 10:00 03/01/24 08:52 Metoprolol(Xl)Succ 25 Mg Tablet PO 12.5 mg DAILY [facility] Administration Protocol Multivitamins 1 tablet 03/01/24 08:00 03/01/24 08:49 Multivitamins,Therapeutic Tablet PO 1 tablet DAILYCM [facility] Administration Nutritional Formula (Lactose Free) 120 ml 03/01/24 12:45 03/01/24 13:39 Glucerna Shake 120 Ml Liquid PO Not Given TIDCM [facility] Pantoprazole Sodium 40 mg 02/29/24 22:00 03/01/24 08:52 Pantoprazole Sodium 40 Mg Tablet PO 40 mg BID [facility] Administration Polyethylene Glycol 17 gm 03/01/24 10:00 03/01/24 08:48 Polyethylene Glycol 3350 17 Gm Packet PO 17 gm DAILY [facility] Administration Potassium Chloride 20 meq 03/01/24 08:00 03/01/24 09:08 Potassium Chloride Oral Tablet 20 Meq PO 20 meq BIDCM [facility] Administration Prochlorperazine Maleate 10 mg 03/01/24 13:07 03/01/24 13:38 Prochlorperazine 5 Mg Tablet PO 10 mg Q4H PRN PRN Administration NAUSEA/VOMITING Sacubitril/Valsartan 0.5 each 02/29/24 22:00 03/01/24 08:50 Sacubitril/Valsartan 24/26 Mg Tablet PO 0.5 each BID VERONA Administration Sodium Chloride 10 - 40 ml 02/29/24 14:24 0.9 % Nacl (Sterile) Posiflush 10 Ml IV UD PRN Port access or dressing change Sodium Chloride 10 - 40 ml 02/29/24 14:24 02/29/24 22:03 0.9% Saline Lock 10 Ml Syringe IV 10 ml UD PRN Administration Closed End PICC Flush Spironolactone 12.5 mg 03/01/24 10:00 03/01/24 08:53 Spironolactone 25 Mg Tablet PO 12.5 mg MOWEFR [facility] Administration Protocol Tolterodine Tartrate 2 mg 03/01/24 10:00 03/01/24 08:52 Tolterodine Tartrate 2 Mg Cap.Sa PO 2 mg DAILY [facility] Administration Trazodone HCl 50 mg 02/29/24 20:01 Trazodone 50 Mg Tablet PO QHS PRN INSOMNIA Tuberculin PPD 0.1 ml 03/08/24 10:00 Tuberculin,Purif.Prot.Deriv. 50 Tu/Ml Vial ID 03/08/24 10:01 X1 ONE Vancomycin HCl 125 mg 02/29/24 18:00 03/01/24 11:32 Vancomycin 125 Mg/5 Ml Susp Po.Syringe PO 03/10/24 18:01 125 mg Q6 VERONA Administration Problem List (Updated 02/29/24 @ 19:[address] Alonso Marte MD) Leg cramp (Acute) Insomnia (Acute) Heart failure with reduced ejection fraction (Acute) CVA (cerebral vascular accident) (Acute) Clostridium difficile colitis (Acute) Acute kidney injury (Acute) Gastrointestinal bleeding, lower (Acute) Colitis (Acute) Overactive bladder (Acute) Muscle spasm (Acute) GERD (gastroesophageal reflux disease) (Acute) Vitamin D deficiency (Acute) Depression (Acute) Debility (Acute) Anxiety (Acute) HLD (hyperlipidemia) (Chronic) Diabetes mellitus (Acute) Vital Signs Temp Pulse Resp BP Pulse Ox O2 Del Method 98.2 F 62 18 128/45 H 95 Room Air 02/29/24 13:31 03/01/24 09:19 03/01/24 05:56 03/01/24 09:19 03/01/24 05:56 03/01/24 05:56 Oxygen Delivery Method Room Air Weight: 66.315 kg Body Mass Index (BMI) 22.2 Sodium 144 mmol/L (136-145) 03/01/24 05:19 Potassium 3.2 mmol/L (3.5-5.1) L 03/01/24 05:19 Chloride 114 mmol/L (98-107) H 03/01/24 05:19 Carbon Dioxide 28.0 mmol/L (21.0-32.0) 03/01/24 05:19 Anion Gap 2 (5-15) L 03/01/24 05:19 BUN 5 mg/dL (7-18) L 03/01/24 05:19 Creatinine 0.72 mg/dL (0.55-1.02) 03/01/24 05:19 Est GFR (MDRD) Af Amer 103 mL/min (>60) 03/01/24 05:19 Est GFR (MDRD) Non-Af 85 mL/min (>60) 03/01/24 05:19 BUN/Creatinine Ratio 7.0 RATIO (10-20) L 03/01/24 05:19 Glucose 163 mg/dL (74-106) H 03/01/24 05:19 Assessment/Plan: 1. Pain: acetaminophen 1000mg PO Q6H PRN pain 1-10. Resident has not had any PRN doses. Please continue to monitor for increased pain and PRN usage. 2. Bowel: Miralax 17gm PO daily and bisacodyl 5mg PO BID PRN constipation. No PRN doses have been given. Please continue to monitor for constipation, diarrhea and PRN usage. Last documented bowel movement 02/27. 3. Stroke: aspirin 81mg PO daily and clopidogrel 75mg PO daily. Please continue to monitor for S/S of bleeding and hemoglobin (last 8.2g/dL). 4. Colitis (C. diff)/abdominal cramping: budesonide 9mg PO daily, vancomycin 125mg PO Q6 thru 03/10/24 and dicyclomine 20mg PO TIDAC. Please continue to monitor for diarrhea and abdominal pain. 5. HFrEF: metoprolol succinate 12.5mg PO daily, Entresto 24/26mg 0.5T PO BID, empagliflozin 10mg PO daily and spironolactone 12.5mg PO MWF. Please continue to monitor HR (last 62), BP (last 128/45), renal function, eGFR (last 85 mL/min), potassium (last 3.2mmol/L). 6. Hyperlipidemia: atorvastatin 40mg PO QHS. Please continue to monitor LFTs (last 02/21/24), lipid panel (last 09/29/23) and muscle pain. 7. Diabetes mellitus II: metformin XR 500mg PO daily. Please continue to monitor GFR, diarrhea, hemoglobin A1c (last 7% 02/22/24) and glucose (last 141mg/dL). 8. GERD: pantoprazole 40mg PO BID. Please continue to monitor for S/S of GERD, diarrhea (BEERs medication) and magnesium. 9. Overactive bladder: tolterodine 2mg PO daily. Please continue to monitor for S/S of overactive bladder, constipation and dementia/delirium (BEERs medication). 10. Muscle spasm: baclofen 5mg PO BID. Please continue to monitor for muscle spasms, weakness and drowsiness. 11. Calcium/vitamin D deficiency, overall nutrition: calcium/vitamin D 1T PO BIDCM, cholecalciferol 50mcg PO daily and multivitamin 1T PO DAILYCM. Please consider ordering a vitamin D level as there is no level in the chart. Thanks. Please continue to monitor calcium (last 7.7mg/dL). 12. Nausea: prochlorperazine 10mg PO Q4H PRN nausea/vomiting. Resident has had 1 dose so far. Please continue to monitor for nausea, vomiting and PRN usage. 13. Hypokalemia (based on K=3.2mmol/L): potassium chloride 20mEq PO BIDCM. Please continue to monitor potassium levels. Assessment/Plan for indications treated with psychotropic medications: 1. Insomnia: clonazepam 1mg PO QHS and trazodone 50mg PO QHS PRN insomnia. Please see physician note regarding GDR. No PRN doses have been given. Please continue to monitor dementia/delirium (BEERs medications) and falls/fractures (BEERs medication). 2. Depression: escitalopram 10mg PO daily. Please see physician note regarding GDR. Please continue to monitor for suicidal ideation (black box warning), falls/fractures (BEERs medication) and sodium (last 144mmol/L). Medical chart and medication regimen reviewed. The following medication irregularities or issues were identified: 1. Calcium/vitamin D 1T PO BIDCM, cholecalciferol 50mcg PO daily. Please consider ordering a vitamin D level as there is no level in the chart. Thanks. Date Date of Note:: 03/01/24 Documented by User: Dr. Alonso Marte MD 03/01/24 16:01 TCU RX Drug Regimen Review Provider Comments Provider responsibility Provider Comments to Recommendations by Pharmacy: Agree
[2024-03-01] MEDS: Acetaminophen 500 MG Tablet 1000 MG PO (16:50)
[2024-03-01 17:13] VITALS: BP 121/54; PULSE 58; RESP 14; TEMP 36.3; O2SAT 96
[2024-03-01] MEDS: Atorvastatin Calcium 40 MG Tablet PO (20:02)
[2024-03-01] MEDS: Cholecalciferol (VIT D3) 25 MCG TABLET (1,000 UNITS) 50 MCG PO (20:03)
[2024-03-01] MEDS: clonazePAM 1 MG Tablet PO (20:06)
[2024-03-01] MEDS: Glucerna Shake 120 ML LIQUID PO (20:06)
[2024-03-02] MEDS: Vancomycin 125 MG/5 ML Susp PO.SYRINGE PO ×5 (00:12→23:02)
[2024-03-02] MEDS: Dicyclomine 10 MG Capsule 20 MG PO ×3 (05:39→16:22)
--- NOTE | 2024-03-02 05:47 | NURSING ---
1800 and 2200 medications given together 03/01/2024 due to patient having nausea. Nausea resolved patient wanted medications at time marked in JAN.
[2024-03-02 05:58] LABS: Hematocrit 26.9 % (37-47); Hemoglobin 8.6 g/dL (12.0-15.0)
[2024-03-02 06:43] LABS: Bedside Glucose 104 mg/dL (74-106)
[2024-03-02 06:50] LABS: Anion Gap 0 (5-15); BUN 6 mg/dL (7-18); BUN/Creat Ratio 8.3 RATIO (10-20); Calcium,Total 8.2 mg/dL (8.5-10.1); Chloride 117 mmol/L (98-107); Creatinine, Serum 0.72 mg/dL (0.55-1.02); EST Glomerular Filtration Rate 84 mL/min (>60); Est Glom Filt Rate - Afr Amer 102 mL/min (>60); Estimated Creatinine Clearance 65.06 ml/min; Glucose 112 mg/dL (74-106); Potassium 3.8 mmol/L (3.5-5.1); Sodium Level 146 mmol/L (136-145)
[2024-03-02] MEDS: Glucerna Shake 120 ML LIQUID PO ×3 (08:09→17:18)
[2024-03-02 08:12] VITALS: BP 129/48; PULSE 68
[2024-03-02] MEDS: Pantoprazole Sodium 40 MG Tablet PO ×2 (08:12→22:53)
[2024-03-02] MEDS: Metoprolol(XL)Succ 25 MG Tablet 12.5 MG PO (08:12)
[2024-03-02] MEDS: Calcium Carb/Vitamin D 1 TABLET Tablet PO ×2 (08:13→17:21)
[2024-03-02] MEDS: Multivitamins,Therapeutic Tablet 1 TABLET PO (08:13)
[2024-03-02] MEDS: SACUBITRIL/VALSARTAN 24/26 MG TABLET 0.5 EACH PO ×2 (08:13→22:52)
[2024-03-02] MEDS: Budesonide 3 MG CAPSULE.EC 9 MG PO (08:13)
[2024-03-02] MEDS: Escitalopram Oxalate 10 MG Tablet PO (08:13)
[2024-03-02] MEDS: Clopidogrel Bisulfate 75 MG Tablet PO (08:14)
[2024-03-02] MEDS: Polyethylene Glycol 3350 17 GM PACKET PO (08:14)
[2024-03-02] MEDS: Tolterodine Tartrate 2 MG CAP.SA PO (08:15)
[2024-03-02] MEDS: Potassium Chloride Oral Tablet 20 MEQ PO ×2 (08:15→17:20)
[2024-03-02] MEDS: Empagliflozin 10 MG Tablet PO (08:16)
[2024-03-02] MEDS: Baclofen 10 MG Tablet 5 MG PO ×2 (08:16→22:51)
[2024-03-02 08:24] VITALS: BP 129/48; PULSE 68
[2024-03-02] MEDS: 0.9% Saline Lock 10 ML Syringe IV ×2 (08:29→22:49)
[2024-03-02 14:38] LABS: Vitamin D,25 Hydroxy 54.2 ng/mL
[2024-03-02 14:47] VITALS: BP 112/46; PULSE 66; RESP 16; TEMP 36.5; O2SAT 94
[2024-03-02 20:00] VITALS: PULSE 63; RESP 16; O2SAT 96
[2024-03-02 22:45] VITALS: BP 150/70; PULSE 62; RESP 16
[2024-03-02] MEDS: clonazePAM 1 MG Tablet PO (22:49)
[2024-03-02] MEDS: Atorvastatin Calcium 40 MG Tablet PO (22:52)
[2024-03-02] MEDS: Cholecalciferol (VIT D3) 25 MCG TABLET (1,000 UNITS) 50 MCG PO (22:53)
[2024-03-03 05:59] LABS: Hematocrit 26.8 % (37-47); Hemoglobin 8.7 g/dL (12.0-15.0)
[2024-03-03] MEDS: Vancomycin 125 MG/5 ML Susp PO.SYRINGE PO ×4 (05:59→23:57)
[2024-03-03 06:11] VITALS: PULSE 64; RESP 14; O2SAT 95
[2024-03-03 06:27] LABS: Anion Gap 2 (5-15); BUN 7 mg/dL (7-18); Calcium,Total 8.2 mg/dL (8.5-10.1); Chloride 114 mmol/L (98-107); Creatinine, Serum 0.78 mg/dL (0.55-1.02); EST Glomerular Filtration Rate 77 mL/min (>60); Est Glom Filt Rate - Afr Amer 94 mL/min (>60); Estimated Creatinine Clearance 65.06 ml/min; Glucose 109 mg/dL (74-106); Potassium 3.5 mmol/L (3.5-5.1); Sodium Level 145 mmol/L (136-145)
[2024-03-03 06:28] LABS: Bedside Glucose 106 mg/dL (74-106)
[2024-03-03] MEDS: Dicyclomine 10 MG Capsule 20 MG PO ×3 (06:52→17:27)
--- NOTE | 2024-03-03 06:57 | NURSING ---
Tremors noted to bilat hands, patient asked if new onset patient states chronic issues, has been seen by a doctor but don't know who it was. Written communication left for Dr. Marte
[2024-03-03] MEDS: Spironolactone 25 MG Tablet 12.5 MG PO (09:12)
[2024-03-03] MEDS: Potassium Chloride Oral Tablet 20 MEQ PO ×2 (09:12→17:27)
[2024-03-03] MEDS: Glucerna Shake 120 ML LIQUID PO ×3 (09:12→17:26)
[2024-03-03 09:13] VITALS: BP 113/48; PULSE 60
[2024-03-03] MEDS: Empagliflozin 10 MG Tablet PO (09:13)
[2024-03-03] MEDS: Metoprolol(XL)Succ 25 MG Tablet 12.5 MG PO (09:13)
[2024-03-03] MEDS: SACUBITRIL/VALSARTAN 24/26 MG TABLET 0.5 EACH PO ×2 (09:13→21:39)
[2024-03-03] MEDS: Clopidogrel Bisulfate 75 MG Tablet PO (09:13)
[2024-03-03] MEDS: Tolterodine Tartrate 2 MG CAP.SA PO (09:13)
[2024-03-03] MEDS: Baclofen 10 MG Tablet 5 MG PO ×2 (09:13→21:40)
[2024-03-03] MEDS: Escitalopram Oxalate 10 MG Tablet PO (09:14)
[2024-03-03] MEDS: Calcium Carb/Vitamin D 1 TABLET Tablet PO ×2 (09:14→17:27)
[2024-03-03] MEDS: Multivitamins,Therapeutic Tablet 1 TABLET PO (09:14)
[2024-03-03] MEDS: Pantoprazole Sodium 40 MG Tablet PO ×2 (09:14→21:40)
[2024-03-03] MEDS: Budesonide 3 MG CAPSULE.EC 9 MG PO (09:14)
[2024-03-03] MEDS: Iron Polysaccharide Complex 150 MG CAPSULE PO (10:39)
[2024-03-03] MEDS: Ascorbic Acid 500 MG Tablet PO (10:39)
[2024-03-03 15:20] VITALS: BP 124/61; PULSE 62; RESP 18; TEMP 36.4; O2SAT 96
[2024-03-03] MEDS: 0.9 % NaCl (Sterile) Posiflush 10 mL IV (17:35)
[2024-03-03] MEDS: Atorvastatin Calcium 40 MG Tablet PO (21:40)
[2024-03-03] MEDS: clonazePAM 1 MG Tablet PO (21:40)
[2024-03-03] MEDS: Cholecalciferol (VIT D3) 25 MCG TABLET (1,000 UNITS) 50 MCG PO (21:40)
[2024-03-04] MEDS: Dicyclomine 10 MG Capsule 20 MG PO ×3 (06:29→16:40)
[2024-03-04] MEDS: Vancomycin 125 MG/5 ML Susp PO.SYRINGE PO ×4 (06:29→23:03)
[2024-03-04 06:35] LABS: Bedside Glucose 111 mg/dL (74-106)
[2024-03-04 09:36] VITALS: BP 113/33; PULSE 64; RESP 16; TEMP 36.3; O2SAT 94
[2024-03-04] MEDS: Glucerna Shake 120 ML LIQUID PO ×3 (09:39→18:27)
[2024-03-04] MEDS: Budesonide 3 MG CAPSULE.EC 9 MG PO (09:43)
[2024-03-04] MEDS: Aspirin E.C. 81 MG Tablet PO (09:43)
[2024-03-04] MEDS: Multivitamins,Therapeutic Tablet 1 TABLET PO (09:43)
[2024-03-04] MEDS: Tolterodine Tartrate 2 MG CAP.SA PO (09:43)
[2024-03-04] MEDS: Calcium Carb/Vitamin D 1 TABLET Tablet PO ×2 (09:43→18:25)
[2024-03-04] MEDS: SACUBITRIL/VALSARTAN 24/26 MG TABLET 0.5 EACH PO ×2 (09:43→21:09)
[2024-03-04] MEDS: Potassium Chloride Oral Tablet 20 MEQ PO ×2 (09:43→18:25)
[2024-03-04 09:44] VITALS: PULSE 64
[2024-03-04] MEDS: Clopidogrel Bisulfate 75 MG Tablet PO (09:44)
[2024-03-04] MEDS: Empagliflozin 10 MG Tablet PO (09:44)
[2024-03-04] MEDS: Iron Polysaccharide Complex 150 MG CAPSULE PO (09:44)
[2024-03-04] MEDS: Escitalopram Oxalate 10 MG Tablet PO (09:44)
[2024-03-04] MEDS: Metoprolol(XL)Succ 25 MG Tablet 12.5 MG PO (09:44)
[2024-03-04] MEDS: Ascorbic Acid 500 MG Tablet PO (09:44)
[2024-03-04] MEDS: Pantoprazole Sodium 40 MG Tablet PO ×2 (09:44→21:10)
[2024-03-04] MEDS: Baclofen 10 MG Tablet 5 MG PO ×2 (09:47→21:11)
[2024-03-04] MEDS: 0.9 % NaCl (Sterile) Posiflush 10 mL IV (11:27)
--- NOTE | 2024-03-04 13:45 | NURSING ---
pt c/o midline dressing irritating skin and wants it removed, updated dr cai. new order to DC. not being used.
[2024-03-04 21:00] VITALS: BP 118/44; PULSE 60; RESP 16
[2024-03-04] MEDS: clonazePAM 1 MG Tablet PO (21:09)
[2024-03-04] MEDS: Cholecalciferol (VIT D3) 25 MCG TABLET (1,000 UNITS) 50 MCG PO (21:12)
[2024-03-04] MEDS: Atorvastatin Calcium 40 MG Tablet PO (21:12)
[2024-03-04 22:00] VITALS: PULSE 60; RESP 16; O2SAT 96
[2024-03-05 04:39] LABS: Hematocrit 28.1 % (37-47); Hemoglobin 8.6 g/dL (12.0-15.0)
[2024-03-05] MEDS: Vancomycin 125 MG/5 ML Susp PO.SYRINGE PO ×3 (06:06→17:51)
[2024-03-05] MEDS: Dicyclomine 10 MG Capsule 20 MG PO ×3 (06:06→17:51)
[2024-03-05 06:11] VITALS: PULSE 86; RESP 16; O2SAT 98
[2024-03-05 06:39] LABS: Bedside Glucose 128 mg/dL (74-106)
[2024-03-05 09:22] VITALS: BP 122/52; PULSE 61; RESP 16; TEMP 36.7; O2SAT 95
[2024-03-05] MEDS: Glucerna Shake 120 ML LIQUID PO ×3 (09:23→17:52)
[2024-03-05] MEDS: Aspirin E.C. 81 MG Tablet PO (09:28)
[2024-03-05] MEDS: Potassium Chloride Oral Tablet 20 MEQ PO ×2 (09:28→17:51)
[2024-03-05] MEDS: Calcium Carb/Vitamin D 1 TABLET Tablet PO ×2 (09:28→17:52)
[2024-03-05] MEDS: Multivitamins,Therapeutic Tablet 1 TABLET PO (09:28)
[2024-03-05] MEDS: Budesonide 3 MG CAPSULE.EC 9 MG PO (09:28)
[2024-03-05] MEDS: Escitalopram Oxalate 10 MG Tablet PO (09:29)
[2024-03-05] MEDS: SACUBITRIL/VALSARTAN 24/26 MG TABLET 0.5 EACH PO ×2 (09:29→21:45)
[2024-03-05] MEDS: Tolterodine Tartrate 2 MG CAP.SA PO (09:29)
[2024-03-05] MEDS: Iron Polysaccharide Complex 150 MG CAPSULE PO (09:29)
[2024-03-05 09:30] VITALS: PULSE 61
[2024-03-05] MEDS: Ascorbic Acid 500 MG Tablet PO (09:30)
[2024-03-05] MEDS: Baclofen 10 MG Tablet 5 MG PO ×2 (09:30→21:45)
[2024-03-05] MEDS: Metoprolol(XL)Succ 25 MG Tablet 12.5 MG PO (09:30)
[2024-03-05] MEDS: Clopidogrel Bisulfate 75 MG Tablet PO (09:31)
[2024-03-05] MEDS: Pantoprazole Sodium 40 MG Tablet PO ×2 (09:31→21:45)
[2024-03-05] MEDS: Empagliflozin 10 MG Tablet PO (09:32)
[2024-03-05] MEDS: clonazePAM 1 MG Tablet PO (21:43)
[2024-03-05 21:45] VITALS: BP 121/53; PULSE 60; RESP 16
[2024-03-05] MEDS: Cholecalciferol (VIT D3) 25 MCG TABLET (1,000 UNITS) 50 MCG PO (21:45)
[2024-03-05] MEDS: Atorvastatin Calcium 40 MG Tablet PO (21:45)
[2024-03-06] MEDS: Vancomycin 125 MG/5 ML Susp PO.SYRINGE PO ×4 (00:23→16:59)
[2024-03-06] MEDS: Dicyclomine 10 MG Capsule 20 MG PO ×3 (06:16→16:55)
[2024-03-06 06:19] LABS: Bedside Glucose 113 mg/dL (74-106)
[2024-03-06] MEDS: Glucerna Shake 120 ML LIQUID PO ×3 (08:14→16:55)
[2024-03-06] MEDS: Clopidogrel Bisulfate 75 MG Tablet PO (08:18)
[2024-03-06] MEDS: Iron Polysaccharide Complex 150 MG CAPSULE PO (08:18)
[2024-03-06] MEDS: Spironolactone 25 MG Tablet 12.5 MG PO (08:18)
[2024-03-06] MEDS: SACUBITRIL/VALSARTAN 24/26 MG TABLET 0.5 EACH PO ×2 (08:18→21:23)
[2024-03-06] MEDS: Empagliflozin 10 MG Tablet PO (08:18)
[2024-03-06] MEDS: Ascorbic Acid 500 MG Tablet PO (08:18)
[2024-03-06 08:19] VITALS: BP 132/63; PULSE 60
[2024-03-06] MEDS: Potassium Chloride Oral Tablet 20 MEQ PO ×2 (08:19→16:55)
[2024-03-06] MEDS: Metoprolol(XL)Succ 25 MG Tablet 12.5 MG PO (08:19)
[2024-03-06] MEDS: Tolterodine Tartrate 2 MG CAP.SA PO (08:19)
[2024-03-06] MEDS: Pantoprazole Sodium 40 MG Tablet PO ×2 (08:19→21:23)
[2024-03-06] MEDS: Multivitamins,Therapeutic Tablet 1 TABLET PO (08:19)
[2024-03-06] MEDS: Calcium Carb/Vitamin D 1 TABLET Tablet PO ×2 (08:19→16:55)
[2024-03-06] MEDS: Budesonide 3 MG CAPSULE.EC 9 MG PO (08:19)
[2024-03-06] MEDS: Baclofen 10 MG Tablet 5 MG PO ×2 (08:20→21:22)
[2024-03-06] MEDS: Escitalopram Oxalate 10 MG Tablet PO (08:20)
[2024-03-06] MEDS: Aspirin E.C. 81 MG Tablet PO (08:20)
[2024-03-06 14:43] VITALS: BP 126/41; PULSE 63; RESP 16; TEMP 37; O2SAT 98
--- NOTE | 2024-03-06 14:54 | NURSING ---
Offered covid vaccine, VIS provided. Patient refuses at this time.
[2024-03-06] MEDS: clonazePAM 1 MG Tablet PO (21:22)
[2024-03-06] MEDS: Atorvastatin Calcium 40 MG Tablet PO (21:22)
[2024-03-06] MEDS: Cholecalciferol (VIT D3) 25 MCG TABLET (1,000 UNITS) 50 MCG PO (21:22)
[2024-03-07] MEDS: Vancomycin 125 MG/5 ML Susp PO.SYRINGE PO ×5 (00:56→23:28)
[2024-03-07] MEDS: Dicyclomine 10 MG Capsule 20 MG PO ×3 (05:47→17:07)
[2024-03-07 07:07] LABS: Bedside Glucose 119 mg/dL (74-106)
[2024-03-07 08:31] VITALS: BP 107/46; PULSE 60
[2024-03-07] MEDS: Glucerna Shake 120 ML LIQUID PO ×3 (08:32→17:09)
[2024-03-07] MEDS: Potassium Chloride Oral Tablet 20 MEQ PO ×2 (08:33→17:07)
[2024-03-07] MEDS: Aspirin E.C. 81 MG Tablet PO (08:33)
[2024-03-07] MEDS: SACUBITRIL/VALSARTAN 24/26 MG TABLET 0.5 EACH PO ×2 (08:34→21:49)
[2024-03-07] MEDS: Multivitamins,Therapeutic Tablet 1 TABLET PO (08:34)
[2024-03-07] MEDS: metFORMIN (XR) 500 MG Tablet PO (08:34)
[2024-03-07] MEDS: Calcium Carb/Vitamin D 1 TABLET Tablet PO ×2 (08:34→17:07)
[2024-03-07 08:35] VITALS: PULSE 60
[2024-03-07] MEDS: Budesonide 3 MG CAPSULE.EC 9 MG PO (08:35)
[2024-03-07] MEDS: Pantoprazole Sodium 40 MG Tablet PO ×2 (08:35→21:47)
[2024-03-07] MEDS: Iron Polysaccharide Complex 150 MG CAPSULE PO (08:35)
[2024-03-07] MEDS: Metoprolol(XL)Succ 25 MG Tablet 12.5 MG PO (08:35)
[2024-03-07] MEDS: Baclofen 10 MG Tablet 5 MG PO ×2 (08:36→21:47)
[2024-03-07] MEDS: Ascorbic Acid 500 MG Tablet PO (08:36)
[2024-03-07] MEDS: Empagliflozin 10 MG Tablet PO (08:36)
[2024-03-07] MEDS: Clopidogrel Bisulfate 75 MG Tablet PO (08:36)
[2024-03-07] MEDS: Tolterodine Tartrate 2 MG CAP.SA PO (08:37)
[2024-03-07] MEDS: Escitalopram Oxalate 10 MG Tablet PO (08:37)
[2024-03-07 11:19] VITALS: BMI 20.3
--- NOTE | 2024-03-07 11:43 | CASEMGMT ---
Social Work This worker met with pt and completed MDS interviews. BIMS PHQ2 11/22 Pt stated she misses her grandson. She stated stated she was feeling down when she was at home prior to going to hospital due to being in so much pain but is feeling better. SW provided support. Stefani HOLLANDW
[2024-03-07 13:22] VITALS: BP 107/47; PULSE 60; RESP 16; TEMP 36.2; O2SAT 98
[2024-03-07] MEDS: Cholecalciferol (VIT D3) 25 MCG TABLET (1,000 UNITS) 50 MCG PO (21:47)
[2024-03-07] MEDS: Atorvastatin Calcium 40 MG Tablet PO (21:48)
[2024-03-07] MEDS: clonazePAM 1 MG Tablet PO (21:51)
[2024-03-07 21:55] VITALS: BP 99/52; PULSE 58
[2024-03-08 05:58] LABS: Absolute Lymphocyte Count 2.54 X10^3/uL (0.83-4.51); Absolute Neutrophil Count 2.1 X10^3/uL (2.0-7.7); Basophil# 0.03 X10^3/uL; Basophil% 0.6 % (0-1); Eosinophil# 0.08 X10^3/uL; Eosinophils% 1.6 % (0-5); Hemoglobin 10.1 g/dL (12.0-15.0); Lymphocyte # 2.54 X10^3/ul (0.83-4.51); Lymphocyte % 49.3 % (19-41); Mean Corp Hgb Conc 31.6 g/dL (32-36); Mean Corpuscular Hgb 30.1 pg (27.0-32.0); Mean Corpuscular Volume 95.5 fL (81-99); Mean Platelet Vol. 10.3 fl (6.2-12.0); Monocyte# 0.44 X10^3/uL; Monocyte% 8.5 % (0-10); NRBC Flagged by Analyzer 0 % (0-5); Neutrophil # 2.05 X10^3/uL (2.7-7.7); Neutrophil % 39.8 % (47-70); Platelet Count 255 K/mm3 (150-450); RBC Distribution Width CV 15.2 % (11.6-14.6); RBC Distribution Width SD 52.8 fl (35.1-43.9); Red Blood Count 3.35 M/mm3 (4.2-5.4); White Blood Count 5.2 K/mm3 (4.4-11.0)
[2024-03-08] MEDS: Vancomycin 125 MG/5 ML Susp PO.SYRINGE PO ×4 (06:22→23:38)
[2024-03-08] MEDS: Dicyclomine 10 MG Capsule 20 MG PO ×3 (06:22→17:02)
[2024-03-08 06:23] LABS: Anion Gap 1 (5-15); BUN 15 mg/dL (7-18); BUN/Creat Ratio 18.6 RATIO (10-20); Calcium,Total 8.5 mg/dL (8.5-10.1); Chloride 109 mmol/L (98-107); EST Glomerular Filtration Rate 75 mL/min (>60); Est Glom Filt Rate - Afr Amer 90 mL/min (>60); Estimated Creatinine Clearance 61.75 ml/min; Glucose 121 mg/dL (74-106); Potassium 4.1 mmol/L (3.5-5.1); Sodium Level 139 mmol/L (136-145)
[2024-03-08 06:29] LABS: Bedside Glucose 111 mg/dL (74-106)
[2024-03-08] MEDS: Baclofen 10 MG Tablet 5 MG PO ×2 (08:36→20:43)
[2024-03-08] MEDS: Budesonide 3 MG CAPSULE.EC 9 MG PO (08:36)
[2024-03-08] MEDS: Tolterodine Tartrate 2 MG CAP.SA PO (08:36)
[2024-03-08] MEDS: Pantoprazole Sodium 40 MG Tablet PO ×2 (08:36→20:43)
[2024-03-08] MEDS: SACUBITRIL/VALSARTAN 24/26 MG TABLET 0.5 EACH PO ×2 (08:36→20:42)
[2024-03-08] MEDS: Empagliflozin 10 MG Tablet PO (08:36)
[2024-03-08] MEDS: Iron Polysaccharide Complex 150 MG CAPSULE PO (08:36)
[2024-03-08] MEDS: Escitalopram Oxalate 10 MG Tablet PO (08:36)
[2024-03-08] MEDS: Potassium Chloride Oral Tablet 20 MEQ PO ×2 (08:36→17:02)
[2024-03-08 08:37] VITALS: BP 103/63; PULSE 63
[2024-03-08] MEDS: Multivitamins,Therapeutic Tablet 1 TABLET PO (08:37)
[2024-03-08] MEDS: Spironolactone 25 MG Tablet 12.5 MG PO (08:37)
[2024-03-08] MEDS: Clopidogrel Bisulfate 75 MG Tablet PO (08:37)
[2024-03-08] MEDS: metFORMIN (XR) 500 MG Tablet PO (08:37)
[2024-03-08] MEDS: Calcium Carb/Vitamin D 1 TABLET Tablet PO ×2 (08:37→17:02)
[2024-03-08] MEDS: Metoprolol(XL)Succ 25 MG Tablet 12.5 MG PO (08:37)
[2024-03-08] MEDS: Ascorbic Acid 500 MG Tablet PO (08:38)
[2024-03-08] MEDS: Glucerna Shake 120 ML LIQUID PO ×3 (08:38→17:02)
[2024-03-08] MEDS: Aspirin E.C. 81 MG Tablet PO (08:38)
--- NOTE | 2024-03-08 08:56 | NURSING ---
Copywriting Intern Note; MDS for 03/07/2024 Complete
[2024-03-08] MEDS: Tuberculin,Purif.prot.deriv. 50 TU/ML Vial 0.1 ML ID (11:26)
--- NOTE | 2024-03-08 12:22 | CASEMGMT ---
Social Work IDT met with patient and for care plan meeting. Discussed patients progress in PT/OT/ST/SN. Pt is making progress in therapy. Educated to [facility] benefits and NRD of 03/13/24 with an EDC 03/16/24. Pt stated she feels she will be ready for DC next week. agreed. Pt would like to go home with and HHC. Pt has utilized HHC previously but could not remember name. No DME needed. ?A list of skilled home health care providers including quality and resource use data and consistent with the patient?s preferred geographic region, medical needs, and insurance network were provided from the [employer] Guide. SW will continue to follow and assist with DC planning. Stefani CLARK
[2024-03-08 13:41] VITALS: BP 113/62; PULSE 74; RESP 16; TEMP 36.6; O2SAT 98
--- NOTE | 2024-03-08 16:45 | CASEMGMT ---
Social Work SW met with pt to complete initial assessment. Verified contacts. Patient confirmed code status as full code. pt does have advanced directives in place. Educated to [employer] benefits and NRD of 03/13/24 with EDC 03/15/24. Pt plans to return home with and is agreeable to [facility]. SW will continue to follow for DC planning.
[2024-03-08] MEDS: clonazePAM 1 MG Tablet PO (20:42)
[2024-03-08] MEDS: Cholecalciferol (VIT D3) 25 MCG TABLET (1,000 UNITS) 50 MCG PO (20:42)
[2024-03-08] MEDS: Atorvastatin Calcium 40 MG Tablet PO (20:44)
[2024-03-09] MEDS: Vancomycin 125 MG/5 ML Susp PO.SYRINGE PO ×4 (06:08→23:24)
[2024-03-09] MEDS: Dicyclomine 10 MG Capsule 20 MG PO ×3 (06:08→16:15)
[2024-03-09 06:10] LABS: Bedside Glucose 131 mg/dL (74-106)
[2024-03-09] MEDS: Glucerna Shake 120 ML LIQUID PO ×2 (09:01→12:44)
[2024-03-09] MEDS: metFORMIN (XR) 500 MG Tablet PO (09:02)
[2024-03-09] MEDS: Aspirin E.C. 81 MG Tablet PO (09:02)
[2024-03-09] MEDS: Calcium Carb/Vitamin D 1 TABLET Tablet PO ×2 (09:06→16:15)
[2024-03-09] MEDS: Multivitamins,Therapeutic Tablet 1 TABLET PO (09:06)
[2024-03-09] MEDS: Potassium Chloride Oral Tablet 20 MEQ PO ×2 (09:06→16:15)
[2024-03-09] MEDS: Tolterodine Tartrate 2 MG CAP.SA PO (09:07)
[2024-03-09] MEDS: SACUBITRIL/VALSARTAN 24/26 MG TABLET 0.5 EACH PO ×2 (09:07→22:12)
[2024-03-09] MEDS: Budesonide 3 MG CAPSULE.EC 9 MG PO (09:07)
[2024-03-09] MEDS: Iron Polysaccharide Complex 150 MG CAPSULE PO (09:08)
[2024-03-09] MEDS: Empagliflozin 10 MG Tablet PO (09:08)
[2024-03-09] MEDS: Baclofen 10 MG Tablet 5 MG PO ×2 (09:09→22:12)
[2024-03-09] MEDS: Pantoprazole Sodium 40 MG Tablet PO ×2 (09:09→22:12)
[2024-03-09] MEDS: Clopidogrel Bisulfate 75 MG Tablet PO (09:09)
[2024-03-09] MEDS: Escitalopram Oxalate 10 MG Tablet PO (09:09)
[2024-03-09 09:10] VITALS: BP 110/58; PULSE 60
[2024-03-09] MEDS: Metoprolol(XL)Succ 25 MG Tablet 12.5 MG PO (09:10)
[2024-03-09] MEDS: Ascorbic Acid 500 MG Tablet PO (09:10)
[2024-03-09 09:17] VITALS: BP 110/58; PULSE 60
--- NOTE | 2024-03-09 12:11 | MDS.RN ---
Information for the MDS was obtained from review of the clinical record, interview of resident, staff, and direct observation of resident?s care.
[2024-03-09 13:55] VITALS: BP 110/42; PULSE 60; RESP 17; TEMP 36.6; O2SAT 95
[2024-03-09] MEDS: Acetaminophen 500 MG Tablet 1000 MG PO (16:14)
[2024-03-09 22:10] VITALS: BP 115/63; PULSE 62; O2SAT 98
[2024-03-09] MEDS: Cholecalciferol (VIT D3) 25 MCG TABLET (1,000 UNITS) 50 MCG PO (22:12)
[2024-03-09] MEDS: Atorvastatin Calcium 40 MG Tablet PO (22:12)
[2024-03-09] MEDS: clonazePAM 1 MG Tablet PO (22:14)
[2024-03-10 06:12] LABS: Bedside Glucose 105 mg/dL (74-106)
[2024-03-10] MEDS: Dicyclomine 10 MG Capsule 20 MG PO ×3 (06:12→16:47)
[2024-03-10] MEDS: Vancomycin 125 MG/5 ML Susp PO.SYRINGE PO ×3 (06:12→16:48)
[2024-03-10 08:34] VITALS: BP 139/51; PULSE 63; RESP 18; TEMP 36.4; O2SAT 97
[2024-03-10] MEDS: Pantoprazole Sodium 40 MG Tablet PO ×2 (08:38→22:11)
[2024-03-10] MEDS: Clopidogrel Bisulfate 75 MG Tablet PO (08:38)
[2024-03-10] MEDS: Ascorbic Acid 500 MG Tablet PO (08:38)
[2024-03-10] MEDS: Baclofen 10 MG Tablet 5 MG PO ×2 (08:38→22:12)
[2024-03-10] MEDS: SACUBITRIL/VALSARTAN 24/26 MG TABLET 0.5 EACH PO ×2 (08:41→22:13)
[2024-03-10] MEDS: Escitalopram Oxalate 10 MG Tablet PO (08:41)
[2024-03-10] MEDS: Spironolactone 25 MG Tablet 12.5 MG PO (08:42)
[2024-03-10] MEDS: Budesonide 3 MG CAPSULE.EC 9 MG PO (08:42)
[2024-03-10] MEDS: Tolterodine Tartrate 2 MG CAP.SA PO (08:42)
[2024-03-10] MEDS: Empagliflozin 10 MG Tablet PO (08:42)
[2024-03-10 08:43] VITALS: PULSE 63
[2024-03-10] MEDS: Potassium Chloride Oral Tablet 20 MEQ PO ×2 (08:43→16:48)
[2024-03-10] MEDS: Calcium Carb/Vitamin D 1 TABLET Tablet PO ×2 (08:43→16:47)
[2024-03-10] MEDS: Multivitamins,Therapeutic Tablet 1 TABLET PO (08:43)
[2024-03-10] MEDS: Metoprolol(XL)Succ 25 MG Tablet 12.5 MG PO (08:43)
[2024-03-10] MEDS: Aspirin E.C. 81 MG Tablet PO (08:43)
[2024-03-10] MEDS: metFORMIN (XR) 500 MG Tablet PO (08:43)
[2024-03-10] MEDS: Iron Polysaccharide Complex 150 MG CAPSULE PO (08:45)
[2024-03-10] MEDS: Glucerna Shake 120 ML LIQUID PO ×2 (11:18→16:47)
[2024-03-10] MEDS: Cholecalciferol (VIT D3) 25 MCG TABLET (1,000 UNITS) 50 MCG PO (22:12)
[2024-03-10] MEDS: Atorvastatin Calcium 40 MG Tablet PO (22:15)
[2024-03-10] MEDS: clonazePAM 1 MG Tablet PO (22:18)
[2024-03-11] MEDS: Dicyclomine 10 MG Capsule 20 MG PO ×3 (06:24→16:28)
[2024-03-11 06:50] LABS: Bedside Glucose 115 mg/dL (74-106)
[2024-03-11 10:12] VITALS: BP 121/55; PULSE 62; RESP 18; TEMP 36.2; O2SAT 98
[2024-03-11] MEDS: Glucerna Shake 120 ML LIQUID PO ×3 (10:13→17:54)
[2024-03-11] MEDS: Budesonide 3 MG CAPSULE.EC 9 MG PO (10:13)
[2024-03-11] MEDS: Pantoprazole Sodium 40 MG Tablet PO ×2 (10:13→22:44)
[2024-03-11] MEDS: Aspirin E.C. 81 MG Tablet PO (10:13)
[2024-03-11] MEDS: Calcium Carb/Vitamin D 1 TABLET Tablet PO ×2 (10:13→17:52)
[2024-03-11] MEDS: Multivitamins,Therapeutic Tablet 1 TABLET PO (10:14)
[2024-03-11] MEDS: Baclofen 10 MG Tablet 5 MG PO ×2 (10:14→22:41)
[2024-03-11 10:15] VITALS: PULSE 62
[2024-03-11] MEDS: Escitalopram Oxalate 10 MG Tablet PO (10:15)
[2024-03-11] MEDS: Metoprolol(XL)Succ 25 MG Tablet 12.5 MG PO (10:15)
[2024-03-11] MEDS: metFORMIN (XR) 500 MG Tablet PO (10:15)
[2024-03-11] MEDS: Tolterodine Tartrate 2 MG CAP.SA PO (10:15)
[2024-03-11] MEDS: Ascorbic Acid 500 MG Tablet PO (10:15)
[2024-03-11] MEDS: Iron Polysaccharide Complex 150 MG CAPSULE PO (10:16)
[2024-03-11] MEDS: Clopidogrel Bisulfate 75 MG Tablet PO (10:16)
[2024-03-11] MEDS: SACUBITRIL/VALSARTAN 24/26 MG TABLET 0.5 EACH PO ×2 (10:16→22:40)
[2024-03-11] MEDS: Empagliflozin 10 MG Tablet PO (10:17)
[2024-03-11] MEDS: Potassium Chloride Oral Tablet 20 MEQ PO ×2 (10:17→17:52)
[2024-03-11 16:00] VITALS: RESP 18
[2024-03-11] MEDS: proCHLORPERazine 5 MG Tablet 10 MG PO (16:28)
[2024-03-11] MEDS: clonazePAM 1 MG Tablet PO (22:41)
[2024-03-11] MEDS: Atorvastatin Calcium 40 MG Tablet PO (22:41)
[2024-03-11] MEDS: Cholecalciferol (VIT D3) 25 MCG TABLET (1,000 UNITS) 50 MCG PO (22:43)
[2024-03-11 22:49] VITALS: BP 103/63; PULSE 60
[2024-03-12] MEDS: Dicyclomine 10 MG Capsule 20 MG PO ×3 (05:33→16:20)
[2024-03-12 06:19] LABS: Bedside Glucose 120 mg/dL (74-106)
[2024-03-12 09:40] VITALS: BP 105/55; PULSE 65; RESP 16; TEMP 36.5; O2SAT 94
[2024-03-12] MEDS: Glucerna Shake 120 ML LIQUID PO ×3 (09:44→17:38)
[2024-03-12] MEDS: Aspirin E.C. 81 MG Tablet PO (09:44)
[2024-03-12] MEDS: Multivitamins,Therapeutic Tablet 1 TABLET PO (09:45)
[2024-03-12] MEDS: Potassium Chloride Oral Tablet 20 MEQ PO ×2 (09:45→17:38)
[2024-03-12] MEDS: metFORMIN (XR) 500 MG Tablet PO (09:45)
[2024-03-12] MEDS: Calcium Carb/Vitamin D 1 TABLET Tablet PO ×2 (09:45→17:38)
[2024-03-12] MEDS: Budesonide 3 MG CAPSULE.EC 9 MG PO (09:46)
[2024-03-12] MEDS: Iron Polysaccharide Complex 150 MG CAPSULE PO (09:47)
[2024-03-12] MEDS: SACUBITRIL/VALSARTAN 24/26 MG TABLET 0.5 EACH PO ×2 (09:47→21:27)
[2024-03-12] MEDS: Tolterodine Tartrate 2 MG CAP.SA PO (09:47)
[2024-03-12] MEDS: Baclofen 10 MG Tablet 5 MG PO ×2 (09:48→21:28)
[2024-03-12] MEDS: Escitalopram Oxalate 10 MG Tablet PO (09:48)
[2024-03-12] MEDS: Empagliflozin 10 MG Tablet PO (09:48)
[2024-03-12] MEDS: Clopidogrel Bisulfate 75 MG Tablet PO (09:49)
[2024-03-12 09:50] VITALS: PULSE 65
[2024-03-12] MEDS: Ascorbic Acid 500 MG Tablet PO (09:50)
[2024-03-12] MEDS: Metoprolol(XL)Succ 25 MG Tablet 12.5 MG PO (09:50)
[2024-03-12] MEDS: Pantoprazole Sodium 40 MG Tablet PO ×2 (09:50→21:29)
[2024-03-12 21:27] VITALS: BP 118/54; PULSE 60
[2024-03-12] MEDS: clonazePAM 1 MG Tablet PO (21:27)
[2024-03-12] MEDS: Atorvastatin Calcium 40 MG Tablet PO (21:28)
[2024-03-12] MEDS: Cholecalciferol (VIT D3) 25 MCG TABLET (1,000 UNITS) 50 MCG PO (21:29)
[2024-03-13] MEDS: Dicyclomine 10 MG Capsule 20 MG PO ×3 (06:21→16:27)
[2024-03-13 06:36] LABS: Bedside Glucose 101 mg/dL (74-106)
[2024-03-13 08:01] VITALS: BP 92/57; PULSE 71; RESP 16; TEMP 36.7; O2SAT 98
[2024-03-13] MEDS: metFORMIN (XR) 500 MG Tablet PO (08:03)
[2024-03-13] MEDS: Aspirin E.C. 81 MG Tablet PO (08:03)
[2024-03-13] MEDS: Potassium Chloride Oral Tablet 20 MEQ PO ×2 (08:03→16:27)
[2024-03-13] MEDS: Budesonide 3 MG CAPSULE.EC 9 MG PO (08:04)
[2024-03-13] MEDS: SACUBITRIL/VALSARTAN 24/26 MG TABLET 0.5 EACH PO ×2 (08:04→21:24)
[2024-03-13] MEDS: Multivitamins,Therapeutic Tablet 1 TABLET PO (08:04)
[2024-03-13] MEDS: Tolterodine Tartrate 2 MG CAP.SA PO (08:04)
[2024-03-13] MEDS: Calcium Carb/Vitamin D 1 TABLET Tablet PO ×2 (08:04→16:27)
[2024-03-13] MEDS: Baclofen 10 MG Tablet 5 MG PO ×2 (08:05→21:23)
[2024-03-13] MEDS: Escitalopram Oxalate 10 MG Tablet PO (08:05)
[2024-03-13] MEDS: Empagliflozin 10 MG Tablet PO (08:05)
[2024-03-13] MEDS: Iron Polysaccharide Complex 150 MG CAPSULE PO (08:05)
[2024-03-13] MEDS: Ascorbic Acid 500 MG Tablet PO (08:06)
[2024-03-13] MEDS: Pantoprazole Sodium 40 MG Tablet PO ×2 (08:06→21:24)
[2024-03-13] MEDS: Clopidogrel Bisulfate 75 MG Tablet PO (08:06)
[2024-03-13] MEDS: Glucerna Shake 120 ML LIQUID PO ×3 (08:07→16:27)
[2024-03-13 10:29] VITALS: BP 108/49; PULSE 59
[2024-03-13] MEDS: Spironolactone 25 MG Tablet 12.5 MG PO (10:32)
[2024-03-13 10:34] VITALS: PULSE 59
[2024-03-13] MEDS: Metoprolol(XL)Succ 25 MG Tablet 12.5 MG PO (10:34)
--- NOTE | 2024-03-13 12:13 | CASEMGMT ---
Social Work ROXANA received a call from patient's inquiring about home health care list. SW informed patient's that discussion can be completed at bedside. SW received Notice of Medicare Non-Coverage with effective end date for current coverage of [facility]: 03/15/2024- Anticipated discharge 03/16/2024 SW met with patient and at bedside. Patient's informed SW that he would like to know what the abbreviations ([facility]osp, MSPB, Timing) on the formerly [facility] home health care list meant. SW reviewed meaning for [facility] Medicare rating and statistics associated with home health providers. Patient's informed ROXANA that he will review list to provide choice of home health care providers. SW assess for home DME need. Patient declined need for DME at discharge. ROXANA informed patient and of [facility] Notice of Medicare Non-Coverage end of services 03/15/2024. Patient's informed ROXANA that the patient will likely discharge same day of end of covered service 03/15/2024. Patient provided verbal understanding and signature. ROXANA notified patient and of Medicare right to appeal discharge via [employer]. Patient and declined appeal at this time. ROXANA provided patient with a copy of [facility]; additional copy in chart. Discharge: 03/15/2024 Home with Home Health Care services SN/PT/OT/[facility] Roy
--- NOTE | 2024-03-13 17:47 | DS.PCM_ITS ---
Providers Date of Admission: 02/29/24 Primary Care Physician: Dr. Joo Campos DO Reason For Visit: COLITIS Diagnosis Discharge Diagnosis (1) Debility: Status: Acute Code(s): R53.81 - Other malaise (2) Colitis: Status: Resolved Code(s): K52.9 - Noninfective gastroenteritis and colitis, unspecified (3) Gastrointestinal bleeding, lower: Status: Resolved Code(s): K92.2 - Gastrointestinal hemorrhage, unspecified (4) Acute kidney injury: Status: Acute Code(s): N17.9 - Acute kidney failure, unspecified (5) Constipation: Status: Inactive Code(s): K59.00 - Constipation, unspecified (6) Clostridium difficile colitis: Status: Acute Code(s): A04.72 - Enterocolitis due to Clostridium difficile, not specified as recurrent (7) CVA (cerebral vascular accident): Status: Resolved Code(s): I63.9 - Cerebral infarction, unspecified (8) HLD (hyperlipidemia): Status: Chronic Code(s): E78.5 - Hyperlipidemia, unspecified (9) Muscle spasm: Status: Acute Code(s): M62.838 - Other muscle spasm (10) GERD (gastroesophageal reflux disease): Status: Acute Code(s): K21.9 - Gastro-esophageal reflux disease without esophagitis (11) Vitamin D deficiency: Status: Acute Code(s): E55.9 - Vitamin D deficiency, unspecified (12) Depression: Status: Acute Code(s): F32.A - Depression, unspecified (13) Anxiety: Status: Acute Code(s): F41.9 - Anxiety disorder, unspecified (14) Diabetes mellitus: Status: Acute Code(s): E11.9 - Type 2 diabetes mellitus without complications (15) Heart failure with reduced ejection fraction: Status: Acute Code(s): I50.20 - Unspecified systolic (congestive) heart failure (16) Overactive bladder: Status: Acute Code(s): N32.81 - Overactive bladder (17) Insomnia: Status: Acute Code(s): G47.00 - Insomnia, unspecified (18) Leg cramp: Status: Acute Code(s): R25.2 - Cramp and spasm Plan 69 year old female with below past medical history hospitalized for colitis, rectal bleeding, SUJATHA, c.diff, complicated by electrolyte abnormalities, admitted to TCU with debility, here for rehabilitation, strengthening, prior to dsicharge home with . * Debility - PT/OT. * Pain - Tylenol 1000mg q6 prn pain (1-10). * Bowel - Miralax 17gm daily, Dulcolax 5mg bid. * Adult immunization - Administer pneumonia vaccine, covid vaccine, flu vaccine as appropriate. * DVT prophylaxis - Hold, recent bleed, on dual antiplatelet therapy. * Stroke - Aspirin 81mg daily, Plavix 75mg daily. * Hyperlipidemia - Atorvastatin 40mg qhs. * Muscle spasm - Baclofen 5mg bid. * Colitis (c. diff) - Budesonide 9mg daily, Vancomycin 125mg q6 x 10 days. * Calcium deficiency - Calcium D bidcm. * Vitamin D deficiency - D3 25mcg daily. * Insomnia - Clonazepam 1mg qhs, Trazodone 50mg qhs prn, stable chronic group home use, GDR not recommended. * Abdominal cramping - Dicyclomine 20mg tidac. * HFrEF - Metoprolol succinate 15mg daily, Entresto 24/26mg 1/2 tablet bid, Jardiance 10mg daily, Aldactone 12.5mg mwf. * Nutrition - Ensure 120ml 4x/day, MVI daily. * Depression - Escitalopram 10mg daily, stable chronic group home use, GDR not recommended. * Diabetes Mellitus II - Metformin XR 500mg daily. * GERD - Pantoprazole 40mg bid. * Overactive bladder - Tolterodine 2mg daily. Medications at Discharge Home Medications clonazepam 1 mg tablet 1 mg PO QHS anxiety 11/18/14 multivitamin with folic acid 400 mcg tablet (Thera) 1 tab PO DAILY vitamin 11/18/14 trazodone 50 mg tablet 50 mg PO DAILY PRN Anxiety 11/18/14 empagliflozin 10 mg tablet (Jardiance) 10 mg PO DAILY diabetes 09/28/23 metoprolol succinate 25 mg tablet,extended release 24 hr 12.5 mg PO DAILY blood pressure 09/28/23 cholecalciferol (vitamin D3) 25 mcg (1,000 unit) tablet 50 mcg (2 x 25 mcg (1,000 unit)) PO QHS supplement #0 tabs 11/09/23 aspirin 81 mg tablet,delayed release 81 mg PO DAILY heart 10/01/23 spironolactone 25 mg tablet 12.5 mg PO MOWEFR FLUID 10/07/23 baclofen 5 mg tablet 5 mg PO BID muscle spasms 02/21/24 calcium carbonate 600 mg-vitamin D3 10 mcg (400 unit) tablet 1 tab PO BID supplement 02/21/24 escitalopram oxalate 10 mg tablet 10 mg PO DAILY mood 02/21/24 metformin 500 mg tablet,extended release 24 hr 500 mg PO DAILY blood sugars 02/21/24 oxybutynin chloride 5 mg tablet,extended release 24 hr 5 mg PO DAILY bladder 02/21/24 rosuvastatin 20 mg tablet 20 mg PO QHS cholesterol 02/21/24 sacubitril 24 mg-valsartan 26 mg tablet (Entresto) 0.5 tab PO BID heart 02/21/24 acetaminophen 500 mg tablet 1,000 mg (2 x 500 mg) PO Q6H PRN PRN Pain Score 1-10 #0 tabs 03/13/24 ascorbic acid (vitamin C) 500 mg tablet 500 mg PO 1000 30 days #30 tabs 03/13/24 budesonide 3 mg capsule,delayed,extended release 9 mg (3 x 3 mg) PO DAILY 30 days #90 ea 03/13/24 clopidogrel 75 mg tablet 75 mg PO DAILY #0 tabs 03/13/24 dicyclomine 10 mg capsule 20 mg (2 x 10 mg) PO TIDAC 30 days #180 caps 03/13/24 pantoprazole 40 mg tablet,delayed release 40 mg PO BID 30 days #60 tabs 03/13/24 polysaccharide iron complex 150 mg iron capsule (Ferrex) 150 mg PO DAILY 30 days #30 caps 03/13/24 potassium chloride 20 mEq tablet,extended release(part/cryst) 20 meq PO BIDCM 30 days #60 tabs 03/13/24 prochlorperazine maleate 5 mg tablet 10 mg (2 x 5 mg) PO Q4H PRN PRN Nausea/Vomiting 30 days #120 tabs 03/13/24 Hospital Course Operations None Procedures None Summary of Care Provided Minutes Spent on Discharge: 35 Hospital Course: 69 year old female with below past medical history hospitalized for colitis, rectal bleeding, SUJATHA, c.diff, complicated by electrolyte abnormalities, admitted to TCU with debility, here for rehabilitation, strengthening, prior to discharge home with . Discharge home with 03/15/2024, [facility] PT/OT/ST/SN. Physical Exam Const alert General Appearance: cooperative HEENT normocephalic Eyes PERRL and EOMs intact bilaterally Neck supple, no JVD and no carotid bruits Resp normal respiratory effort, normal air movement and clear to auscultation bilaterally Cardio regular rate and regular rhythm GI normal to inspection, nondistended, normoactive bowel sounds, non-tender and non-distended Extremity normal capillary refill General Extremity: Negative for edema Skin no rashes or lesions noted General Skin Exam: no breakdown Psych affect normal Appearance: appropriate Weight / BMI Weight Weight: 60.645 kg Body Mass Index (BMI) 20.3 ABG / Lab / Microbiology Data 03/08/24 05:17 03/08/24 05:17 Laboratory: Laboratory Results - last 24 hr 03/13/24 06:04: POC Glucose 101 D/C Instructions Discharge Diet: No restrictions Discharge Activity: Return to Normal Activity, May Shower and Use Walker Weight Bearing Status: Weight bearing as tolerated Call your doctor if you observe: Fever of 101 or Higher, Inability to urinate, Inability to have a bowel movement, Shortness of breath, Dizziness, Fainting spells, Swelling in the ankles, Chest pain and Uncontrolled pain Additional Instructions: Discharge home with 03/15/2024, [facility] PT/OT/ST/SN. Please Follow Up With: Shan Lockett DO When: 4 weeks. Meaningful Use Info Meaningful Use Meaningful Use Diagnoses (Choose all that apply): None applicable Ischemic Stroke Statin Dosing Therapy Reference: STATIN DOSE THERAPY REFERENCE: * Patients > 75 years receive moderate or high dose statin therapy. * Patients 75 years or YOUNGER should receive HIGH intensity statin dose unless contraindicated. You will be required to document reason for non-treatment if statin daily dose does not meet guidelines. HIGH DOSE STATIN THERAPY DAILY Atorvastatin > than or = to 40 mg Rosuvastatin > than or = to 20 mg Amlodipine + Atorvastatin > than or = to 2.5/40 mg Ezetimibe + Simvastatin 10/80 mg Simvastatin 80mg Discharge Plan Admission Admit Date/Time: 02/29/24 13:20 Primary Reason for Your Visit: Debility. Attending Provider: Alonso Marte Chi Primary Care Provider: Joo Capmos Instructions Additional Instructions / Restrictions: Discharge home with 03/15/2024, [facility] PT/OT/ST/SN. Discharge Orders/Prescriptions Prescriptions: New acetaminophen 500 mg Tablet 1,000 mg PO Q6H PRN PRN (Reason: Pain Score 1-10) Qty: 0 0RF ascorbic acid (vitamin C) 500 mg Tablet 500 mg PO 1000 30 Days Qty: 30 0RF pantoprazole 40 mg Tablet,Delayed Release (Dr/Ec) 40 mg PO BID 30 Days Qty: 60 0RF budesonide 3 mg Capsule,Delayed,Extend.Release 9 mg PO DAILY 30 Days Qty: 90 0RF dicyclomine 10 mg Capsule 20 mg PO TIDAC 30 Days Qty: 180 0RF polysaccharide iron complex [Ferrex 150] 150 mg iron Capsule 150 mg PO DAILY 30 Days Qty: 30 0RF clopidogrel 75 mg Tablet 75 mg PO DAILY Qty: 0 0RF prochlorperazine maleate 5 mg Tablet 10 mg PO Q4H PRN PRN (Reason: Nausea/Vomiting) 30 Days Qty: 120 0RF potassium chloride 20 mEq Tablet,Er Particles/Crystals 20 meq PO BIDCM 30 Days Qty: 60 0RF Continued trazodone 50 MG tablet 50 mg PO DAILY PRN (Reason: Anxiety) clonazepam 1 MG tablet 1 mg PO QHS multivitamin with folic acid [Thera] 1 TABLET tablet 1 tab PO DAILY Hold Instructions: Pt is ill Jardiance 10 mg tablet 10 mg PO DAILY metoprolol succinate 25 mg tablet extended release 24 hr 12.5 mg PO DAILY cholecalciferol (vitamin D3) 25 mcg (1,000 unit) Tablet 50 mcg PO QHS Qty: 0 0RF Hold Instructions: Pt is ill aspirin 81 mg tablet,delayed release (DR/EC) 81 mg PO DAILY Hold Instructions: Hold for 3 days spironolactone 25 mg tablet 12.5 mg PO MOWEFR oxybutynin chloride 5 mg tablet extended release 24hr 5 mg PO DAILY metformin 500 mg tablet extended release 24 hr 500 mg PO DAILY Hold Instructions: Hold for 1 week escitalopram oxalate 10 mg tablet 10 mg PO DAILY rosuvastatin 20 mg tablet 20 mg PO QHS calcium carbonate-vitamin D3 600 mg-10 mcg (400 unit) tablet 1 tab PO BID Hold Instructions: Hold for 1 week Entresto 24-26 mg tablet 0.5 tab PO BID baclofen 5 mg tablet 5 mg PO BID Patient Comments: PLEASE SEE ATTACHED FOR DETAILED DIRECTIONS Discontinued citalopram 20 MG tablet 20 mg PO QHS clopidogrel 75 MG tablet 1 tab PO QHS pantoprazole 40 MG tablet 40 mg PO BID bisacodyl 5 mg Tablet,Delayed Release (Dr/Ec) 5 mg PO BID Qty: 0 0RF Rx Instructions: Hold if more than 1 bowel movement per day acetaminophen 325 mg Tablet 650 mg PO Q4H PRN PRN (Reason: Fever, pain -08/31) Qty: 0 0RF budesonide 3 mg Capsule,Delayed,Extend.Release 9 mg PO DAILY Qty: 0 0RF dicyclomine 10 mg Capsule 20 mg PO TIDAC Qty: 0 0RF vancomycin [Firvanq] 25 mg/mL Recon Soln 125 mg PO Q6 10 Days Qty: 200 0RF polyethylene glycol 3350 [Miralax] 17 gram/dose powder 17 g PO DAILY 30 Days Qty: 510 0RF Rx Instructions: Hold if more than 1 bowel moods per day Referrals / Follow Up: Joo Campos DO [Primary Care Provider] - 03/27/24 3:00 pm Disposition Disposition (needs filled in before D/C Order can be placed): Home Health Service
[2024-03-13] MEDS: clonazePAM 1 MG Tablet PO (21:22)
[2024-03-13] MEDS: Atorvastatin Calcium 40 MG Tablet PO (21:23)
[2024-03-13] MEDS: Cholecalciferol (VIT D3) 25 MCG TABLET (1,000 UNITS) 50 MCG PO (21:24)
[2024-03-13 21:27] VITALS: BP 97/42; PULSE 59
[2024-03-14] MEDS: Dicyclomine 10 MG Capsule 20 MG PO ×3 (06:30→17:28)
[2024-03-14 06:36] LABS: Bedside Glucose 122 mg/dL (74-106)
[2024-03-14] MEDS: Glucerna Shake 120 ML LIQUID PO ×3 (09:43→17:28)
[2024-03-14 09:44] VITALS: BP 108/71; PULSE 64
[2024-03-14] MEDS: Aspirin E.C. 81 MG Tablet PO (09:44)
[2024-03-14] MEDS: Metoprolol(XL)Succ 25 MG Tablet 12.5 MG PO (09:44)
[2024-03-14] MEDS: Pantoprazole Sodium 40 MG Tablet PO ×2 (09:44→21:32)
[2024-03-14] MEDS: Ascorbic Acid 500 MG Tablet PO (09:44)
[2024-03-14] MEDS: Escitalopram Oxalate 10 MG Tablet PO (09:44)
[2024-03-14] MEDS: Potassium Chloride Oral Tablet 20 MEQ PO ×2 (09:45→17:28)
[2024-03-14] MEDS: SACUBITRIL/VALSARTAN 24/26 MG TABLET 0.5 EACH PO ×2 (09:45→21:33)
[2024-03-14] MEDS: Budesonide 3 MG CAPSULE.EC 9 MG PO (09:45)
[2024-03-14] MEDS: Empagliflozin 10 MG Tablet PO (09:45)
[2024-03-14] MEDS: Baclofen 10 MG Tablet 5 MG PO ×2 (09:45→21:32)
[2024-03-14] MEDS: Iron Polysaccharide Complex 150 MG CAPSULE PO (09:45)
[2024-03-14] MEDS: Multivitamins,Therapeutic Tablet 1 TABLET PO (09:45)
[2024-03-14] MEDS: Tolterodine Tartrate 2 MG CAP.SA PO ×2 (09:45)
[2024-03-14] MEDS: Calcium Carb/Vitamin D 1 TABLET Tablet PO ×2 (09:45→17:28)
[2024-03-14] MEDS: Clopidogrel Bisulfate 75 MG Tablet PO (09:45)
[2024-03-14] MEDS: metFORMIN (XR) 500 MG Tablet PO (09:46)
--- NOTE | 2024-03-14 11:44 | CASEMGMT ---
Social Work SW met with patient at bedside to determine home health care provider choice. Patient informed SW that she is unaware of home health care provider choice. Patient informed SW that her will be at bedside today 03/14/2024, arriving between 12-1PM. SW will follow up with patient and to obtain choice for home health care referral. VINCENT Patterson
[2024-03-14 13:56] VITALS: BP 120/55; PULSE 58; RESP 14; TEMP 36.1; O2SAT 96
[2024-03-14 14:00] VITALS: BMI 19.8
--- NOTE | 2024-03-14 16:41 | CASEMGMT ---
Social Work SW met with patient and at bedside to discuss discharge plans. The patient's informed ROXANA that patient choice for home health care provider is [facility], [facility], and [facility]. Patient referral was submitted via [facility] for home health care services. Patient informed ROXANA that he will provide transportation to home at 11AM. Discharge Disposition: Home with Home Health Care services PT/OT/ST/SN VINCENT Patterson
[2024-03-14 19:56] VITALS: PULSE 60; RESP 16; O2SAT 95
[2024-03-14] MEDS: clonazePAM 1 MG Tablet PO (21:31)
[2024-03-14] MEDS: Atorvastatin Calcium 40 MG Tablet PO (21:31)
[2024-03-14] MEDS: Cholecalciferol (VIT D3) 25 MCG TABLET (1,000 UNITS) 50 MCG PO (21:31)
[2024-03-15 06:11] LABS: Bedside Glucose 116 mg/dL (74-106)
[2024-03-15] MEDS: Dicyclomine 10 MG Capsule 20 MG PO (06:25)
[2024-03-15 06:31] VITALS: RESP 16
[2024-03-15 06:42] LABS: Absolute Lymphocyte Count 3.07 X10^3/uL (0.83-4.51); Absolute Neutrophil Count 2.3 X10^3/uL (2.0-7.7); Basophil# 0.04 X10^3/uL; Basophil% 0.7 % (0-1); Eosinophil# 0.06 X10^3/uL; Hematocrit 35.9 % (37-47); Hemoglobin 11.3 g/dL (12.0-15.0); Lymphocyte # 3.07 X10^3/ul (0.83-4.51); Mean Corp Hgb Conc 31.5 g/dL (32-36); Mean Corpuscular Hgb 30.4 pg (27.0-32.0); Mean Corpuscular Volume 96.5 fL (81-99); Mean Platelet Vol. 11.2 fl (6.2-12.0); Monocyte# 0.53 X10^3/uL; Monocyte% 8.8 % (0-10); NRBC Flagged by Analyzer 0 % (0-5); Neutrophil % 38.2 % (47-70); Platelet Count 206 K/mm3 (150-450); RBC Distribution Width CV 14.6 % (11.6-14.6); RBC Distribution Width SD 52.5 fl (35.1-43.9); Red Blood Count 3.72 M/mm3 (4.2-5.4)
[2024-03-15 06:51] LABS: Anion Gap 4 (5-15); BUN 25 mg/dL (7-18); BUN/Creat Ratio 23.8 RATIO (10-20); Calcium,Total 9.3 mg/dL (8.5-10.1); Chloride 107 mmol/L (98-107); Creatinine, Serum 1.05 mg/dL (0.55-1.02); EST Glomerular Filtration Rate 55 mL/min (>60); Est Glom Filt Rate - Afr Amer 66 mL/min (>60); Estimated Creatinine Clearance 45.89 ml/min; Glucose 122 mg/dL (74-106); Potassium 4.5 mmol/L (3.5-5.1); Sodium Level 139 mmol/L (136-145)
--- NOTE | 2024-03-15 08:50 | CASEMGMT ---
Addendum entered by Jesi Odell 03/15/24 11:07: SW received notification from [facility], Meron Machado that the patient has been accepted for home health care services at this time. SOC will be within 48hrs of discharge. Patient's is providing discharge transportation to home. Discharge: Home with [facility] PT/OT/ST/SN Addendum entered by Jesi Odell 03/15/24 09:28: MDS completed with patient at bedside. BIM (11/05) and PHQ-2 () Original Note: Social Work SW reviewed [facility] referral. [facility] declined referral due to being out of service area, [facility] declined due to out of service area. ROXANA contacted [facility] and spoke to martha Chance who informed SW that she may be able to accept patient, but will need to review with production reproduction manager. ROXANA is awaiting determination of home health care service PT/OT/ST/SN VINCENT Patterson
[2024-03-15 09:12] VITALS: BP 122/50; PULSE 62; RESP 16; TEMP 36.5; O2SAT 96
[2024-03-15] MEDS: metFORMIN (XR) 500 MG Tablet PO (09:13)
[2024-03-15] MEDS: Potassium Chloride Oral Tablet 20 MEQ PO (09:14)
[2024-03-15] MEDS: Aspirin E.C. 81 MG Tablet PO (09:14)
[2024-03-15] MEDS: SACUBITRIL/VALSARTAN 24/26 MG TABLET 0.5 EACH PO (09:14)
[2024-03-15] MEDS: Pantoprazole Sodium 40 MG Tablet PO (09:15)
[2024-03-15] MEDS: Budesonide 3 MG CAPSULE.EC 9 MG PO (09:15)
[2024-03-15] MEDS: Baclofen 10 MG Tablet 5 MG PO (09:16)
[2024-03-15] MEDS: Clopidogrel Bisulfate 75 MG Tablet PO (09:16)
[2024-03-15] MEDS: Calcium Carb/Vitamin D 1 TABLET Tablet PO (09:16)
[2024-03-15] MEDS: Empagliflozin 10 MG Tablet PO (09:16)
[2024-03-15] MEDS: Escitalopram Oxalate 10 MG Tablet PO (09:16)
[2024-03-15] MEDS: Ascorbic Acid 500 MG Tablet PO (09:16)
[2024-03-15] MEDS: Spironolactone 25 MG Tablet 12.5 MG PO (09:17)
[2024-03-15] MEDS: Multivitamins,Therapeutic Tablet 1 TABLET PO (09:17)
[2024-03-15 09:18] VITALS: PULSE 62
[2024-03-15] MEDS: Metoprolol(XL)Succ 25 MG Tablet 12.5 MG PO (09:18)
[2024-03-15] MEDS: Iron Polysaccharide Complex 150 MG CAPSULE PO (09:20)
== END 2024-03-15 11:28 | disposition home health service (06) | DRG 372 ==
PROVIDERS: Admitting Provider Family Medicine Geriatric Medicine; PCP Student in an Organized Health Care Education/Training Program; Referring Provider Family Medicine Geriatric Medicine; Visit Provider Family Medicine Geriatric Medicine
DX: A04.72 Enterocolitis due to Clostridium difficile, not specified as recurrent (principal); I50.22 Chronic systolic (congestive) heart failure; Q21.12 Patent foramen ovale; K92.2 Gastrointestinal hemorrhage, unspecified; I11.0 Hypertensive heart disease with heart failure; E11.9 Type 2 diabetes mellitus without complications; F32.A Depression, unspecified; I25.5 Ischemic cardiomyopathy; F41.9 Anxiety disorder, unspecified; M62.838 Other muscle spasm; E78.00 Pure hypercholesterolemia, unspecified; K21.9 Gastro-esophageal reflux disease without esophagitis; I25.10 Atherosclerotic heart disease of native coronary artery without angina pectoris; E55.9 Vitamin D deficiency, unspecified; Z86.73 Personal history of transient ischemic attack (TIA), and cerebral infarction without residual deficits; Z79.82 Long term (current) use of aspirin; Z87.891 Personal history of nicotine dependence; Z95.5 Presence of coronary angioplasty implant and graft; Z79.02 Long term (current) use of antithrombotics/antiplatelets; Z79.84 Long term (current) use of oral 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 drugs; G47.00 Insomnia, unspecified; R53.81 Other malaise; N32.81 Overactive bladder; Z79.899 Other long term (current) drug therapy; Z95.810 Presence of automatic (implantable) cardiac defibrillator
CPT/HCPCS: 36415; 80048; 82306; 82962; 85014; 85018; 85025; 92507; 92523; 97110; 97116; 97162; 97166; 97530; 97535; 97802; A4216

== ENCOUNTER 2024-03-27 14:37 | Outpatient (RCR) | payer MEDICARE, SELFPAY ==
[2024-03-27 15:02] LABS: Hematocrit 40.7 % (37-47); Hemoglobin 12.9 g/dL (12.0-15.0); Mean Corp Hgb Conc 31.7 g/dL (32-36); Mean Corpuscular Volume 97.8 fL (81-99); Mean Platelet Vol. 11.3 fl (6.2-12.0); Platelet Count 158 K/mm3 (150-450); RBC Distribution Width CV 14.1 % (11.6-14.6); RBC Distribution Width SD 51.3 fl (35.1-43.9); Red Blood Count 4.16 M/mm3 (4.2-5.4)
[2024-03-27 15:13] LABS: AST(SGOT) 17 U/L (15-37); Alanine Aminotransfer ALT/SGPT 24 U/L (13-56); Albumin, Serum 3.7 g/dL (3.2-5.0); Alkaline Phosphatase 51 U/L (45-117); Anion Gap 3 (5-15); BUN 27 mg/dL (7-18); BUN/Creat Ratio 25.7 RATIO (10-20); Calcium,Total 9.2 mg/dL (8.5-10.1); Chloride 107 mmol/L (98-107); Creatinine, Serum 1.05 mg/dL (0.55-1.02); EST Glomerular Filtration Rate 55 mL/min (>60); Est Glom Filt Rate - Afr Amer 66 mL/min (>60); Globulin 3.8 g/dL (2.2-4.2); Glucose 130 mg/dL (74-106); Potassium 4.2 mmol/L (3.5-5.1); Protein, Total 7.5 g/dL (6.4-8.2); Sodium Level 140 mmol/L (136-145)
== END 2024-04-21 23:59 ==
LOC: HHLAB 14:37
PROVIDERS: PCP Student in an Organized Health Care Education/Training Program; Referring Provider Student in an Organized Health Care Education/Training Program; Visit Provider Student in an Organized Health Care Education/Training Program
DX: R53.81 Other malaise (principal)
CPT/HCPCS: 80053; 85027

== ENCOUNTER 2024-06-28 02:34 | Emergency (ER) | payer MEDICARE, SELFPAY ==
[2024-06-28 02:34] VITALS: BP 132/69; PULSE 78; RESP 16; TEMP 37; O2SAT 98; BMI 20.2
[2024-06-28 03:12] LABS: Absolute Lymphocyte Count 1.21 X10^3/uL (0.83-4.51); Absolute Neutrophil Count 6.5 X10^3/uL (2.0-7.7); Basophil# 0.01 X10^3/uL; Basophil% 0.1 % (0-1); Eosinophil# 0.02 X10^3/uL; Eosinophils% 0.2 % (0-5); Hematocrit 36.5 % (37-47); Hemoglobin 11.9 g/dL (12.0-15.0); Lymphocyte # 1.21 X10^3/ul (0.83-4.51); Lymphocyte % 14.2 % (19-41); Mean Corp Hgb Conc 32.6 g/dL (32-36); Mean Corpuscular Hgb 30.4 pg (27.0-32.0); Mean Corpuscular Volume 93.1 fL (81-99); Mean Platelet Vol. 11.5 fl (6.2-12.0); Monocyte# 0.73 X10^3/uL; Monocyte% 8.5 % (0-10); NRBC Flagged by Analyzer 0 % (0-5); Neutrophil # 6.54 X10^3/uL (2.7-7.7); Neutrophil % 76.6 % (47-70); Platelet Count 119 K/mm3 (150-450); RBC Distribution Width CV 13.5 % (11.6-14.6); RBC Distribution Width SD 46.1 fl (35.1-43.9); Red Blood Count 3.92 M/mm3 (4.2-5.4); White Blood Count 8.5 K/mm3 (4.4-11.0)
[2024-06-28 03:13] VITALS: BP 133/80; PULSE 67; RESP 16; O2SAT 99
--- NOTE | 2024-06-28 03:14 | CT_ITS ---
EXAM: CT ABDOMEN AND PELVIS WITH INTRAVENOUS CONTRAST CLINICAL INDICATION: abd pain TECHNIQUE: Helically acquired images were obtained of the abdomen and pelvis with intravenous contrast. This CT exam was performed using one or more of the following dose reduction techniques: automated exposure control, adjustment of the mA and/or kV according to patient size, and/or use of iterative reconstruction technique. CONTRAST: 100 cc of Isovue-370 IV. RADIATION DOSE: CTDIvol = 9.63 mGy, DLP = 835.20 mGy-cm COMPARISON: 12/09/2014. FINDINGS: LOWER THORAX: Unremarkable. Lung bases are clear. No cardiomegaly. No significant pericardial effusion. ABDOMEN: LIVER: There is diffuse low-attenuation of the liver. GALLBLADDER AND BILE DUCTS: Cholecystectomy. Common bile duct is dilated to 1.1 cm unchanged since previous exam. PANCREAS: Unremarkable. No focal cystic or solid mass. SPLEEN: Unremarkable. Normal size without focal cystic or solid mass. ADRENALS: Unremarkable. No nodules. KIDNEYS AND URETERS: Simple left renal cyst. No follow-up of this simple cyst is necessary. Normal renal size and position. No hydronephrosis. STOMACH AND BOWEL: Edematous wall thickening of the cecum and ascending colon with surrounding pericolonic fat stranding. Adherent gas bubbles are seen along the mucosa without true pneumatosis. Numerous diverticula without diverticulitis. No stomach or bowel distention. PELVIS: APPENDIX: No evidence of acute appendicitis. BLADDER: Unremarkable. REPRODUCTIVE: Unremarkable as visualized. No mass. ABDOMEN and PELVIS: INTRAPERITONEAL SPACE: Unremarkable. No ascites or other fluid collection. No free air. BONES/JOINTS: Unremarkable. No suspicious lytic or blastic abnormality. SOFT TISSUES: See above. VASCULATURE: Unremarkable. Abdominal aorta is non-dilated. LYMPH NODES: Unremarkable. No enlarged lymph nodes. CT/Abdomen/Pelvis W IV Cont ONLY IMPRESSION: 1. Colitis involving the cecum and descending colon. This may be due to infection, inflammatory bowel disease or ischemia. No vascular abnormality is identified. 2. Cholecystectomy. 3. Common bile duct is dilated to 1.1 cm unchanged since previous exam. 4. Fatty liver. 5. Numerous diverticula without diverticulitis. Electronically Signed: Joo Beasley MD at 5:01 EDT ,
[2024-06-28] MEDS: Ondansetron 4 MG/2 ML Vial IV (03:29)
[2024-06-28] MEDS: Morphine 4 MG/ML Syringe IV (03:29)
[2024-06-28] MEDS: 0.9% Normal Saline (1000mL) 1,000 ML 999 ML IV (03:29)
[2024-06-28 03:31] LABS: ALB/GLOB Ratio 1.1 RATIO (0.9-2.4); AST(SGOT) 29 U/L (15-37); Alanine Aminotransfer ALT/SGPT 19 U/L (13-56); Albumin, Serum 3.8 g/dL (3.2-5.0); Alkaline Phosphatase 47 U/L (45-117); Anion Gap 8 (5-15); BUN 35 mg/dL (7-18); BUN/Creat Ratio 26.1 RATIO (10-20); Calcium,Total 9.1 mg/dL (8.5-10.1); Chloride 101 mmol/L (98-107); Creatinine, Serum 1.34 mg/dL (0.55-1.02); EST Glomerular Filtration Rate 41 mL/min (>60); Est Glom Filt Rate - Afr Amer 50 mL/min (>60); Estimated Creatinine Clearance 36.78 ml/min; Globulin 3.6 g/dL (2.2-4.2); Glucose 162 mg/dL (74-106); Potassium 3.9 mmol/L (3.5-5.1); Protein, Total 7.4 g/dL (6.4-8.2); Sodium Level 137 mmol/L (136-145)
[2024-06-28 03:32] LABS: Lipase 21 U/L (13-75)
[2024-06-28 04:08] LABS: Lactic Acid 1.4 mmol/L (0.4-1.9)
[2024-06-28 05:13] VITALS: BP 124/65; PULSE 78; RESP 16; O2SAT 98
--- NOTE | 2024-06-28 05:29 | EX.ED.DYSGE1 ---
HPI History of Present Illness Chief Complaint: Abd Pain Informant: patient and spouse/S.O. Narrative Narrative: Patient is a 69-year-old female with past medical history of hypertension hyperlipidemia chronic kidney disease as well as type 2 diabetes and recent diagnosis of colitis. Patient and family state that she was seen for something similar and diagnosed with ischemic colitis. They state that she follows with the [employer] operations specialist Dr. Lockett. Patient states that she had become completely better from her previous visit. However in the last 2 days she has had increasing abdominal pain with loose stool/diarrhea. She denies any known sick contacts. She states that the stool was brown in color and denies any bright red blood or dark discoloration. However and the symptoms have been worsening since their onset and secondary to this she comes in for evaluation [facility] Medical History (Updated 06/30/24 @ 02:[address] Romeo Padron, ) History of left heart catheterization History of mechanical ventilation Cardiogenic pulmonary edema Acute hypoxic respiratory failure Multiple lung nodules Major depressive disorder Left bundle branch block NSTEMI (non-ST elevated myocardial infarction) GERD (gastroesophageal reflux disease) Diabetic peripheral vascular disease Diabetic nephropathy Chronic kidney disease (CKD) Bleeding ulcer Anxiety Dyslipidemia Chronic systolic heart failure Pacemaker Congestive heart failure (CHF) Cerebral palsy Anxiety and depression Heart failure with reduced ejection fraction Insomnia Transient ischemic attack AV node dysfunction Ischemic cardiomyopathy Presence of biventricular implantable cardioverter-defibrillator Ulcer Restless legs High cholesterol Former smoker ICD (implantable cardioverter-defibrillator) in place Coronary artery disease CVA (cerebral vascular accident) PFO (patent foramen ovale) Cardiac resynchronization therapy defibrillator (SHALE PLANER OPERATOR HELPER-D) in place Diabetes mellitus Myocarditis Hyperlipidemia Hypertension Home Medications ?Medication ?Instructions ?Recorded ?Last Taken ?Type clonazepam 1 mg tablet 1 mg PO QHS anxiety 11/18/14 10/06/23 History trazodone 50 mg tablet 50 mg PO DAILY PRN Anxiety 11/18/14 10/06/23 History metoprolol succinate 25 mg 12.5 mg PO DAILY blood pressure 09/28/23 10/07/23 History tablet,extended release 24 hr cholecalciferol (vitamin D3) 25 50 mcg (2 x 25 mcg (1,000 unit)) 09/30/23 10/06/23 Rx mcg (1,000 unit) tablet PO QHS supplement #0 tabs aspirin 81 mg tablet,delayed 81 mg PO DAILY heart 10/01/23 10/07/23 History release spironolactone 25 mg tablet 12.5 mg PO MOWEFR FLUID 10/07/23 10/06/23 History escitalopram oxalate 10 mg tablet 10 mg PO DAILY mood 02/21/24 Unknown History metformin 500 mg tablet,extended 500 mg PO DAILY blood sugars 02/21/24 Unknown History release 24 hr rosuvastatin 20 mg tablet 20 mg PO QHS cholesterol 02/21/24 Unknown History sacubitril 24 mg-valsartan 26 mg 0.5 tab PO BID heart 02/21/24 Unknown History tablet (Entresto) ascorbic acid (vitamin C) 500 mg 500 mg PO 1000 30 days #30 tabs 03/13/24 Unknown Rx tablet clopidogrel 75 mg tablet 75 mg PO DAILY #0 tabs 03/13/24 Unknown Rx pantoprazole 40 mg tablet,delayed 40 mg PO BID 30 days #60 tabs 03/13/24 Unknown Rx release prochlorperazine maleate 5 mg 10 mg (2 x 5 mg) PO Q4H PRN PRN 03/13/24 Unknown Rx tablet Nausea/Vomiting 30 days #120 tabs dicyclomine 10 mg capsule 20 mg (2 x 10 mg) PO TIDAC 90 days 05/23/24 Unknown Rx #540 caps acetaminophen 500 mg tablet 500 mg PO Q6H PRN PRN Pain Score 06/13/24 Unknown History 1-10 baclofen 5 mg tablet 5 mg PO .QID muscle spasms 06/13/24 Unknown History cyanocobalamin (vitamin B-12) 500 500 mcg PO DAILY 06/13/24 Unknown History mcg tablet docusate sodium 100 mg capsule 100 mg PO BID PRN constipation 06/13/24 Unknown History empagliflozin 10 mg tablet 5 mg PO BID diabetes 06/13/24 Unknown History (Jardiance) furosemide 20 mg tablet 20 mg PO QDAY PRN for 2lb weight 06/13/24 Unknown History gain loratadine 10 mg tablet (Claritin) 10 mg PO DAILY 06/13/24 Unknown History melatonin 10 mg tablet 5 mg PO HS 06/13/24 Unknown History multivitamin 2 tab PO DAILY 06/13/24 Unknown History oxybutynin chloride 5 mg 5 mg PO Q OTHER DAY bladder 06/13/24 Unknown History tablet,extended release 24 hr amoxicillin 875 mg-potassium 1 tab PO BID 7 days #14 tabs 06/28/24 Unknown Rx clavulanate 125 mg tablet oxycodone-acetaminophen 5 mg-325 1 tab PO Q6H PRN pain 3 days #12 06/28/24 Unknown Rx mg tablet (Percocet) tabs Allergy/AdvReac Type Severity Reaction Status Date / Time No Known Allergies Allergy Verified 02/21/24 14:04 Family History (Updated 06/13/24 @ 13:47 by Amy Tolliver RN) Father Heart disease Myocardial infarction Mother Anxiety and depression Suicide and self-inflicted injury from suicide age 54. Surgical History Presence of stent in coronary artery History of bilateral cataract extraction History of skin surgery S/P colon polypectomy History of cardiac defibrillator placement History of cholecystectomy History of coronary artery stent placement Social History household members: spouse Smoking Status: Former smoker how long ago did patient quit smokin-1.5 ppd from teen until quit in 2008. alcohol intake: never substance use type: does not use ROS ROS ED Constitutional Constitutional ED: Denies chills or fever(s) Eyes Eyes: Denies blurry vision or change in vision ENT ENT ED: Denies sore throat Cardiovascular Cardiovascular: Denies chest pain Respiratory/Chest Respiratory/Chest: Denies cough or dyspnea Gastrointestinal Gastrointestinal: Reports abdominal pain, diarrhea, nausea and vomiting Genitourinary Genitourinary ED: Denies dysuria Musculoskeletal Musculoskeletal: Reports myalgias Integumentary Denies rash Neurologic Neurologic: Denies headache(s) Hematologic/Lymphatic Hematologic/Lymphatic: Denies easy bleeding or easy bruising EXAM Physical Exam Const Vital Signs: 06/28/24 02:34 06/28/24 03:13 06/28/24 05:13 Temperature 98.6 F Temperature Source Oral Pulse Rate 78 67 78 Respiratory Rate 16 16 16 Blood Pressure 132/69 H 133/80 H 124/65 H Blood Pressure Mean 90 97 84 Pulse Ox 98 99 98 Oxygen Delivery Method Room Air Room Air Room Air Positive well nourished and well developed General Appearance ED: well developed; Negative for pallor HEENT Reports dry mucous membranes HEENT Narrative: Mucous membranes are dry and tacky without tongue or lip swelling oral lesions or airway edema or compromise Mouth ED: Yes dry mucous membranes Mouth: dry mucous membranes Eyes PERRL and EOMs intact bilaterally General Eye ED: Negative for pale conjunctiva or scleral icterus Neck supple Neck Narrative: No nuchal rigidity or meningeal signs noted Resp normal respiratory effort and clear to auscultation bilaterally Resp Narrative: No nasal flaring retractions tachypnea or accessory muscle use Cardio regular rate and regular rhythm Rate: other Other Details: Heart is regular rate and rhythm Radial and carotid pulses are equal and symmetric GI non-distended and no masses GI Narrative: Abdomen is soft and nondistended with normal active bowel sounds. There is mild diffuse pain with palpation without voluntary guarding or rigidity. No pulsatile mass or fluid wave. No increased tympany noted Auscultation: normoactive bowel sounds Palpation: soft Extremity normal to inspection Neuro oriented x3, CN's II-XII intact bilaterally and no sensory deficits noted Sensorium / Orientation: alert Motor Exam: strength 5/5 throughout Psych Psych Narrative: Patient has a flat affect Skin no rashes or lesions noted General Skin Exam: Negative for jaundice or pallor MDM MDM MDM Narrative Medical decision making narrative: Patient arrived to the ER with stable vitals. She reported a recent diagnosis of ischemic colitis. However she reports she had gotten 100% better after that visit and at this time there was no bright red blood or dark discoloration of her stool. With the report of nausea vomiting and diarrhea there is concern this is a viral stomach infection such as gastroenteritis from [place] or rotavirus. However patient may have diverticulitis/colitis or she could have acute kidney injury or electrolyte abnormalities. Secondary to his basic blood work with a CT scan with IV contrast was obtained. Labs revealed no clinically significant finding. The patient CT scan showed inflammation of the intestine consistent with colitis. This could be inflammatory infectious or potentially ischemic but radiologist feels that the vessels highlight around it and the patient does not have pain out of proportion nor is her lactic acid elevated so do not feel this is ischemic. This is most likely inflammatory in nature as patient is afebrile with normal white count but with the repeat symptoms it could be infectious so I will place the patient on a short round of antibiotics. However after IV hydration and pain control in the ER the patient has resolution of her symptoms and her vitals remained stable. Therefore this time I do not feel there is need for emergent GI referral or admission to the hospital and she can be discharged home with symptomatic care History & Record Review Discussion w/independent historian: Patient and Significant other Lab Data Attestation: I reviewed the patient's lab results. Labs: Laboratory Results - last 24 hr 06/28/24 06/28/24 03:00 03:25 WBC 8.5 RBC 3.92 L Hgb 11.9 L Hct 36.5 L MCV 93.1 MCH 30.4 MCHC 32.6 RDW Std Deviation 46.1 H RDW Coeff of Edita 13.5 Plt Count 119 L MPV 11.5 Immature Gran % (Auto) 0.400 Neut % (Auto) 76.6 H Lymph % (Auto) 14.2 L [place] % (Auto) 8.5 Eos % (Auto) 0.2 Baso % (Auto) 0.1 Absolute Neuts (auto) 6.5 Absolute Lymphs (auto) 1.21 Nucleated RBC % 0 Sodium 137 Potassium 3.9 Chloride 101 Carbon Dioxide 28.0 Anion Gap 8 BUN 35 H Creatinine 1.34 H Estim Creat Clear Calc 36.78 Est GFR (MDRD) Af Amer 50 L Est GFR (MDRD) Non-Af 41 L BUN/Creatinine Ratio 26.1 H Glucose 162 H Lactic Acid 1.4 Calcium 9.1 Total Bilirubin 0.50 AST 29 ALT 19 Alkaline Phosphatase 47 Total Protein 7.4 Albumin 3.8 Globulin 3.6 Albumin/Globulin Ratio 1.1 Lipase 21 Radiography Diagnostic Testing: Clinical Impression(s) from Imaging Studies Abdomen/Pelvis CT 06/28/24 03:14 IMPRESSION: 1. Colitis involving the cecum and descending colon. This may be due to infection, inflammatory bowel disease or ischemia. No vascular abnormality is identified. 2. Cholecystectomy. 3. Common bile duct is dilated to 1.1 cm unchanged since previous exam. 4. Fatty liver. 5. Numerous diverticula without diverticulitis. Electronically Signed: Joo Beasley MD at 5:01 EDT , Discharge Plan Triage Chief Complaint: Abd Pain ED Provider: Romeo Padron Dx/Rx/DC Orders Clinical Impression: Colitis, HTN (hypertension), Chronic kidney disease (CKD), HLD (hyperlipidemia), DM type 2 (diabetes mellitus, type 2) Instructions: ED Understanding Colitis Prescriptions: New amoxicillin-pot clavulanate 875-125 mg tablet 1 tab PO BID 7 Days Qty: 14 0RF oxycodone-acetaminophen [Percocet] 5-325 mg tablet 1 tab PO Q6H PRN (Reason: pain) 3 Days Qty: 12 0RF No Action dicyclomine 10 mg capsule 20 mg PO TIDAC 90 Days Qty: 540 3RF furosemide 20 mg tablet 20 mg PO QDAY PRN (Reason: for 2lb weight gain) acetaminophen 500 mg tablet 500 mg PO Q6H PRN PRN (Reason: Pain Score 1-10) cyanocobalamin (vitamin B-12) 500 mcg tablet 500 mcg PO DAILY docusate sodium 100 mg capsule 100 mg PO BID PRN (Reason: constipation) loratadine [Claritin] 10 mg tablet 10 mg PO DAILY melatonin 10 mg tablet 5 mg PO HS multivitamin Tablet 2 tab PO DAILY trazodone 50 MG tablet 50 mg PO DAILY PRN (Reason: Anxiety) clonazepam 1 MG tablet 1 mg PO QHS metoprolol succinate 25 mg tablet extended release 24 hr 12.5 mg PO DAILY cholecalciferol (vitamin D3) 25 mcg (1,000 unit) Tablet 50 mcg PO QHS Qty: 0 0RF Jardiance 10 mg tablet 5 mg PO BID aspirin 81 mg tablet,delayed release (DR/EC) 81 mg PO DAILY spironolactone 25 mg tablet 12.5 mg PO MOWEFR metformin 500 mg tablet extended release 24 hr 500 mg PO DAILY escitalopram oxalate 10 mg tablet 10 mg PO DAILY rosuvastatin 20 mg tablet 20 mg PO QHS Entresto 24-26 mg tablet 0.5 tab PO BID baclofen 5 mg tablet 5 mg PO .QID Patient Comments: PLEASE SEE ATTACHED FOR DETAILED DIRECTIONS oxybutynin chloride 5 mg tablet extended release 24hr 5 mg PO Q OTHER DAY ascorbic acid (vitamin C) 500 mg Tablet 500 mg PO 1000 30 Days Qty: 30 0RF pantoprazole 40 mg Tablet,Delayed Release (Dr/Ec) 40 mg PO BID 30 Days Qty: 60 0RF clopidogrel 75 mg Tablet 75 mg PO DAILY Qty: 0 0RF prochlorperazine maleate 5 mg Tablet 10 mg PO Q4H PRN PRN (Reason: Nausea/Vomiting) 30 Days Qty: 120 0RF Primary Care Provider: Marci Nuñez Referrals: Marci Nuñez DO [Primary Care Provider] - Friend,DO Shan [Med Staff - Active Staff] - Activity Restrictions/Additional Instructions: Please continue all of your previous medications as directed by your doctor. As your colitis could be related to an infectious process take the Augmentin as directed to help resolve this aspect and use the Percocet for improving. If you have any further concerns or worsening of symptoms please return to the ER for repeat evaluation Print Language: Algerian Disposition Disposition: Home, Self Care Discharge Date/Time: 06/28/24 06:05
[2024-06-28 05:50] LABS: Mucous, Urine 0 SEEN /hpf (<or=2+)
[2024-06-28 06:02] VITALS: BP 112/68; PULSE 71; RESP 14; TEMP 36.5; O2SAT 99
[2024-06-28 06:50] LABS: Color, Urine Straw (Yellow); Glucose, Dipstick 1000 mg/dl (Normal); Ketone-Dipstick 5 mg/dl (Negative); Leukocyte Esterase-Dipstick 500 /ul (Negative); Nitrite-Dipstick Negative (Negative); Occult Blood-Urine 50 /ul (Negative); Protein-Dipstick 15 mg/dl (Negative); Urine Bilirubin Dipstick Negative (Negative); Urine Clarity Sl. Cloudy (Clear); Urine Urobilinogen Normal (Normal)
[2024-06-28 06:51] LABS: Bacteria 1+ /hpf (None Seen); Fine Granular Cast- Urine 0-5 SEEN /lpf (0-5); Hyaline Cast 5-10 SEEN /lpf (0-5); Red Blood Cells-Urine 10-25 SEEN /hpf (0-5); Squamous Epithelial Cells - UA 5-10 SEEN /hpf (5-10); White Blood Cells 25-50 SEEN /hpf (0-5)
== END 2024-06-28 06:05 | disposition home or self-care (01) ==
PROVIDERS: Emergency Provider Emergency Medicine; PCP Family Medicine; Visit Provider Emergency Medicine
DX: K52.9 Noninfective gastroenteritis and colitis, unspecified (principal); I50.22 Chronic systolic (congestive) heart failure; I13.0 Hypertensive heart and chronic kidney disease with heart failure and stage 1 through stage 4 chronic kidney disease, or unspecified chronic kidney disease; E11.22 Type 2 diabetes mellitus with diabetic chronic kidney disease; E11.51 Type 2 diabetes mellitus with diabetic peripheral angiopathy without gangrene; E78.00 Pure hypercholesterolemia, unspecified; N18.9 Chronic kidney disease, unspecified; I25.10 Atherosclerotic heart disease of native coronary artery without angina pectoris; I25.2 Old myocardial infarction; Z95.5 Presence of coronary angioplasty implant and graft; Z95.810 Presence of automatic (implantable) cardiac defibrillator; Z79.02 Long term (current) use of antithrombotics/antiplatelets; Z79.84 Long term (current) use of oral 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 drugs; Z79.899 Other long term (current) drug therapy; Z86.73 Personal history of transient ischemic attack (TIA), and cerebral infarction without residual deficits; Z87.891 Personal history of nicotine dependence
CPT/HCPCS: 74177; 80053; 81001; 83605; 83690; 85025; 96361; 96374; 96375; 99283; J7030; Q9967; A4216; J2405

== ENCOUNTER 2024-07-03 12:41 | Observation (INO) | payer MEDICARE, SELFPAY ==
[2024-07-03] VITALS (7 sets, daily range): BP systolic 99–123; BP diastolic 46–107; PULSE 60–80; RESP 15–18; TEMP 35.9–36.8; O2SAT 97–99; BMI 20.9; BMI 21.0
--- NOTE | 2024-07-03 15:26 | EDS_ITS ---
HPI History of Present Illness Chief Complaint: GI Bleed Informant: patient Onset/Context/Timing Onset: Weeks (1) Context: Gradual Onset Timing: Intermittent Quality: Aching Location: Diffuse Worsened by: Nothing Relieved by: Nothing Narrative Narrative: Patient presents with rectal bleeding that has been intermittent over the last week. Patient states that she has had multiple episodes have rectal bleeding and clots. Patient states she is unsure if the bleeding is coming from her rectum, vagina, or urine. Patient states she has abdominal pain that is diffuse across her entire abdomen. Patient states it started in the left lower quadrant. Patient describes it as aching. Patient states nothing makes her symptoms better and nothing makes it worse. Patient admits to a subjective fever. Patient states she did have some nausea several days ago but currently denies any nausea or vomiting. [facility] Medical History History of left heart catheterization History of mechanical ventilation Cardiogenic pulmonary edema Acute hypoxic respiratory failure Multiple lung nodules Major depressive disorder Left bundle branch block NSTEMI (non-ST elevated myocardial infarction) GERD (gastroesophageal reflux disease) Diabetic peripheral vascular disease Diabetic nephropathy Chronic kidney disease (CKD) Bleeding ulcer Anxiety Dyslipidemia Chronic systolic heart failure Pacemaker Congestive heart failure (CHF) Cerebral palsy Anxiety and depression Heart failure with reduced ejection fraction Insomnia Transient ischemic attack AV node dysfunction Ischemic cardiomyopathy Presence of biventricular implantable cardioverter-defibrillator Ulcer Restless legs High cholesterol Former smoker ICD (implantable cardioverter-defibrillator) in place Coronary artery disease CVA (cerebral vascular accident) PFO (patent foramen ovale) Cardiac resynchronization therapy defibrillator (TECHNICAL SUPPORT COORDINATOR-D) in place Diabetes mellitus Myocarditis Hyperlipidemia Hypertension Home Medications ?Medication ?Instructions ?Recorded ?Last Taken ?Type clonazepam 1 mg tablet 1 mg PO QHS anxiety 11/18/14 10/06/23 History trazodone 50 mg tablet 50 mg PO DAILY PRN Anxiety 11/18/14 10/06/23 History metoprolol succinate 25 mg 12.5 mg PO DAILY blood pressure 09/28/23 10/07/23 History tablet,extended release 24 hr cholecalciferol (vitamin D3) 25 50 mcg (2 x 25 mcg (1,000 unit)) 09/30/23 10/06/23 Rx mcg (1,000 unit) tablet PO QHS supplement #0 tabs aspirin 81 mg tablet,delayed 81 mg PO DAILY heart 10/01/23 10/07/23 History release spironolactone 25 mg tablet 12.5 mg PO MOWEFR FLUID 10/07/23 10/06/23 History escitalopram oxalate 10 mg tablet 10 mg PO DAILY mood 02/21/24 Unknown History metformin 500 mg tablet,extended 500 mg PO DAILY blood sugars 02/21/24 Unknown History release 24 hr rosuvastatin 20 mg tablet 20 mg PO QHS cholesterol 02/21/24 Unknown History sacubitril 24 mg-valsartan 26 mg 0.5 tab PO BID heart 02/21/24 Unknown History tablet (Entresto) ascorbic acid (vitamin C) 500 mg 500 mg PO 1000 30 days #30 tabs 03/13/24 Unknown Rx tablet clopidogrel 75 mg tablet 75 mg PO DAILY #0 tabs 03/13/24 Unknown Rx pantoprazole 40 mg tablet,delayed 40 mg PO BID 30 days #60 tabs 03/13/24 Unknown Rx release prochlorperazine maleate 5 mg 10 mg (2 x 5 mg) PO Q4H PRN PRN 03/13/24 Unknown Rx tablet Nausea/Vomiting 30 days #120 tabs dicyclomine 10 mg capsule 20 mg (2 x 10 mg) PO TIDAC 90 days 05/23/24 Unknown Rx #540 caps acetaminophen 500 mg tablet 500 mg PO Q6H PRN PRN Pain Score 06/13/24 Unknown History 1-10 baclofen 5 mg tablet 5 mg PO .QID muscle spasms 06/13/24 Unknown History cyanocobalamin (vitamin B-12) 500 500 mcg PO DAILY 06/13/24 Unknown History mcg tablet docusate sodium 100 mg capsule 100 mg PO BID PRN constipation 06/13/24 Unknown History empagliflozin 10 mg tablet 5 mg PO BID diabetes 06/13/24 Unknown History (Jardiance) furosemide 20 mg tablet 20 mg PO QDAY PRN for 2lb weight 06/13/24 Unknown History gain loratadine 10 mg tablet (Claritin) 10 mg PO DAILY 06/13/24 Unknown History melatonin 10 mg tablet 5 mg PO HS 06/13/24 Unknown History multivitamin 2 tab PO DAILY 06/13/24 Unknown History oxybutynin chloride 5 mg 5 mg PO Q OTHER DAY bladder 06/13/24 Unknown History tablet,extended release 24 hr amoxicillin 875 mg-potassium 1 tab PO BID 7 days #14 tabs 06/28/24 Unknown Rx clavulanate 125 mg tablet oxycodone-acetaminophen 5 mg-325 1 tab PO Q6H PRN pain 3 days #12 06/28/24 Unknown Rx mg tablet (Percocet) tabs Allergy/AdvReac Type Severity Reaction Status Date / Time No Known Allergies Allergy Verified 02/21/24 14:04 Family History (Updated 06/13/24 @ 13:47 by Amy Tolliver RN) Father Heart disease Myocardial infarction Mother Anxiety and depression Suicide and self-inflicted injury from suicide age 54. Surgical History Presence of stent in coronary artery History of bilateral cataract extraction History of skin surgery S/P colon polypectomy History of cardiac defibrillator placement History of cholecystectomy History of coronary artery stent placement Social History household members: spouse Smoking Status: Former smoker how long ago did patient quit smokin-1.5 ppd from teen until quit in 2008. alcohol intake: never substance use type: does not use ROS ROS ED Constitutional Constitutional ED: Reports fever(s) and subjective; Denies chills Eyes Eyes: Denies blurry vision or change in vision ENT ENT ED: Denies rhinorrhea or sore throat Cardiovascular Cardiovascular: Denies chest pain or palpitations Respiratory/Chest Respiratory/Chest: Denies cough or dyspnea Gastrointestinal Gastrointestinal: Reports abdominal pain, melena and nausea; Denies vomiting Genitourinary Genitourinary ED: Denies dysuria or hematuria Musculoskeletal Musculoskeletal: Denies back pain or neck pain Integumentary Denies abscess or rash Neurologic Neurologic: Denies headache(s) or weakness Allergic/Immunologic Allergic/Immunologic ED: Denies mouth swelling or urticaria EXAM Physical Exam Const Vital Signs: 07/03/24 12:42 07/03/24 15:30 07/03/24 17:00 Temperature 96.7 F L Temperature Source Temporal Pulse Rate 80 73 60 Respiratory Rate 16 17 18 Blood Pressure 107/46 L 123/107 H 116/67 Blood Pressure Mean 66 112 83 Pulse Ox 99 98 98 Oxygen Delivery Method Room Air Room Air Room Air Positive well nourished and well developed General Appearance ED: well developed and NAD HEENT Reports moist mucous membranes Neck supple and no JVD Cardio regular rate and regular rhythm GI non-distended Palpation: soft and tender LLQ, RLQ and suprapubic; Negative for guarding or rebound tenderness present Rectal Exam: normal sphincter tone, abnormal stool blood-tinged stool and heme positive stool; Negative for mass or tenderness Neuro oriented x3, CN's II-XII intact bilaterally and no sensory deficits noted Sensorium / Orientation: alert Motor Exam: strength 5/5 throughout MDM MDM MDM Narrative Medical decision making narrative: Differential diagnosis includes colitis, diverticulitis, urinary tract infection, bowel obstruction, perforation, abscess, anemia, ureteral calculus, coagulopathy, and viral illness. CBC will be obtained to assess for leukocytosis and anemia. Comprehensive metabolic profile will be obtained to assess for hepatic function, renal function, and electrolyte abnormality. PT with INR and PTT will be obtained to assess for coagulopathy. Acute abdominal x-rays will be obtained to assess for bowel obstruction and perforation. Lab Data Attestation: I reviewed the patient's lab results. Lab results narrative: CBC was reviewed. Hemoglobin was 10.9. This is somewhat lower compared to hemoglobin 5 days ago of 11.9. PT with INR and PTT were reviewed. Pro time was slightly elevated at 15 and INR is 1.2. PTT was within normal limits. Comprehensive metabolic profile was reviewed. Creatinine was slightly elevated at 1.29. This is improved from previous result. Labs: Laboratory Results - last 24 hr 07/03/24 07/03/24 15:55 16:06 WBC 5.0 RBC 3.62 L Hgb 10.9 L Hct 33.4 L MCV 92.3 MCH 30.1 MCHC 32.6 RDW Std Deviation 45.6 H RDW Coeff of Edita 13.4 Plt Count 191 MPV 10.8 Immature Gran % (Auto) 0.600 Neut % (Auto) 61.9 Lymph % (Auto) 28.6 Daniels % (Auto) 6.7 Eos % (Auto) 1.8 Baso % (Auto) 0.4 Absolute Neuts (auto) 3.1 Absolute Lymphs (auto) 1.44 Nucleated RBC % 0 ESR 49 H PT 15.0 H Cancelled INR 1.2 Cancelled APTT 28.2 Cancelled Sodium 140 Cancelled Potassium 3.8 Cancelled Chloride 109 H Cancelled Carbon Dioxide 24.0 Cancelled Anion Gap 7 Cancelled BUN 17 Cancelled Creatinine 1.29 H Cancelled Estim Creat Clear Calc Cancelled Est GFR (MDRD) Af Amer 52 L Cancelled Est GFR (MDRD) Non-Af 43 L Cancelled BUN/Creatinine Ratio 13.2 Cancelled Glucose 166 H Cancelled Calcium 9.0 Cancelled Total Bilirubin 0.40 Cancelled AST 28 Cancelled ALT 26 Cancelled Alkaline Phosphatase 50 Cancelled Lactate Dehydrogenase 199 C-React Prot Ext Range 90.10 H Total Protein 7.4 Cancelled Albumin 3.1 L Cancelled Globulin 4.3 H Cancelled Albumin/Globulin Ratio 0.7 L Cancelled Radiography Diagnostic Testing: Clinical Impression(s) from Imaging Studies Acute Abdomen Series 07/03/24 16:15 IMPRESSION: Negative chest and abdominal series. Electronically Signed: Iron Ferrer MD at 17:40 EDT , Acute abdominal x-rays were obtained. There are 5 views. On my independent interpretation, there is no obstruction or free air. There is no acute abdominal process noted. Radiologist also interpreted the x-rays and agrees. Management Discussion w/another healthcare provider: Hospitalist (Dr. Thomas) and Coordinate Measuring Machine Technician (Dr. Lockett from gastroenterology) Treatment and Re-Evaluation :: Patient was given IV fluids, morphine, and Zofran. Patient was feeling better on reevaluation. Case was discussed with Dr. Lockett from gastroenterology. He recommended admitting the patient to the hospital overnight for observation. He will perform colonoscopy tomorrow. Case was discussed with the hospitalist. She will admit the patient to her service. Patient and family understood and were agreeable with the plan. All questions were answered. Discharge Plan Dx/Rx/DC Orders Clinical Impression: Acute lower gastrointestinal bleeding, Colitis, Anemia Disposition Disposition: [facility]
[2024-07-03] MEDS: 0.9% Normal Saline (1000mL) 1,000 ML 1000 ML IV (16:03)
[2024-07-03] MEDS: Morphine 4 MG/ML Syringe IV (16:04)
[2024-07-03] MEDS: Ondansetron 4 MG/2 ML Vial IV (16:04)
--- NOTE | 2024-07-03 16:15 | RAD_ITS ---
INDICATION: Abdominal pain EXAMINATION/TECHNIQUE: X-RAY - XR Abdomen Series W/ Chest 1 View COMPARISON: None FINDINGS: --Chest: LINES/DEVICES: None. LUNGS: No consolidation, edema or effusion. No pneumothorax. MEDIASTINUM AND CARDIOVASCULAR STRUCTURES: Cardiac silhouette not enlarged. Central airways and mediastinal contour are unremarkable. Left-sided cardiac device. BONES AND SOFT TISSUES: No acute findings. Degenerative changes. --Abdomen: BOWEL GAS PATTERN: Non-obstructive. No bowel or stomach distention. FREE AIR: None visualized. ORGANOMEGALY: Not seen. CALCIFICATIONS: No abnormal calcifications observed. BONES AND SOFT TISSUES: No acute findings. Degenerative changes. RAD/Acute Abdomen Inc Chest IMPRESSION: Negative chest and abdominal series. Electronically Signed: Iron Ferrer MD at 17:40 EDT ,
[2024-07-03 16:22] LABS: Absolute Lymphocyte Count 1.44 X10^3/uL (0.83-4.51); Absolute Neutrophil Count 3.1 X10^3/uL (2.0-7.7); Basophil# 0.02 X10^3/uL; Basophil% 0.4 % (0-1); Eosinophil# 0.09 X10^3/uL; Eosinophils% 1.8 % (0-5); Hematocrit 33.4 % (37-47); Hemoglobin 10.9 g/dL (12.0-15.0); Lymphocyte # 1.44 X10^3/ul (0.83-4.51); Lymphocyte % 28.6 % (19-41); Mean Corp Hgb Conc 32.6 g/dL (32-36); Mean Corpuscular Hgb 30.1 pg (27.0-32.0); Mean Corpuscular Volume 92.3 fL (81-99); Mean Platelet Vol. 10.8 fl (6.2-12.0); Monocyte# 0.34 X10^3/uL; Monocyte% 6.7 % (0-10); NRBC Flagged by Analyzer 0 % (0-5); Neutrophil # 3.12 X10^3/uL (2.7-7.7); Neutrophil % 61.9 % (47-70); Platelet Count 191 K/mm3 (150-450); RBC Distribution Width CV 13.4 % (11.6-14.6); RBC Distribution Width SD 45.6 fl (35.1-43.9); Red Blood Count 3.62 M/mm3 (4.2-5.4)
[2024-07-03 16:31] LABS: International Normalized Ratio 1.2
[2024-07-03 16:32] LABS: Partial Thromboplast Time 28.2 Seconds (24.1-36.2)
[2024-07-03 16:44] LABS: ALB/GLOB Ratio 0.7 RATIO (0.9-2.4); AST(SGOT) 28 U/L (15-37); Alanine Aminotransfer ALT/SGPT 26 U/L (13-56); Albumin, Serum 3.1 g/dL (3.2-5.0); Alkaline Phosphatase 50 U/L (45-117); Anion Gap 7 (5-15); BUN 17 mg/dL (7-18); BUN/Creat Ratio 13.2 RATIO (10-20); Chloride 109 mmol/L (98-107); Creatinine, Serum 1.29 mg/dL (0.55-1.02); EST Glomerular Filtration Rate 43 mL/min (>60); Est Glom Filt Rate - Afr Amer 52 mL/min (>60); Globulin 4.3 g/dL (2.2-4.2); Glucose 166 mg/dL (74-106); LDH 199 U/L (84-246); Potassium 3.8 mmol/L (3.5-5.1); Protein, Total 7.4 g/dL (6.4-8.2); Sodium Level 140 mmol/L (136-145)
[2024-07-03 17:02] LABS: Erythrocyte Sedimentation Rate 49 mm/hr (0-30)
--- NOTE | 2024-07-03 18:59 | HP.PCM.HOS_ITS ---
HPI - General General Date of Admission: 07/03/24 Date of Service: 07/03/24 Chief Complaint: BRBPR HPI Narrative BETTY CARO, is a 69 F who presented to the emergency department at [facility] on 07/03/2024 with a chief complaint of bright red blood per rectum. She had a previous episode similar to this in February 2024 at which time she had a colonoscopy and was diagnosed with ischemic colitis. She does have a history of hypertension, hyperlipidemia, HFrEF and diabetes with history of vascular disease which do increase her risk for the development of ischemic colitis. She was seen in the emergency department on 06/28/2024 at which time she only had abdominal pain. Her hemoglobin was stable and she had abdominal pain with loose stool and diarrhea but no bright red blood per rectum at that time. CT of the abdomen pelvis was performed at that time with IV contrast and showed changes consistent with colitis. She was placed on Augmentin and discharged home. Since then as noted above she is developed bright red blood per rectum today which has been ongoing issues every time she has her loose stool. She has had decreased p.o. intake but her indicated today her fluid intake has been okay. She denies any abdominal pain at this time. Vital signs on presentation showed a temperature of 96.7, heart rate 80, respiratory 16, blood pressure 107/46 (patient states her blood pressure is chronically on the lower side), and pulse ox was 99% on room air. CBC shows an anemia with a hemoglobin of 10.9 down from 11.9 on 06/28/2024. White count platelet count are normal. Coags are unremarkable. Chemistry panel shows normal electrolytes with a normal BUN and a chronically elevated serum creatinine 1.29. Glucose was 166. Liver functions normal. Case was discussed with gastroenterology and they recommended admission for repeat colonoscopy to be done tomorrow. FOR[facility], LAT[facility] Medical History History of left heart catheterization History of mechanical ventilation Cardiogenic pulmonary edema Acute hypoxic respiratory failure Multiple lung nodules Major depressive disorder Left bundle branch block NSTEMI (non-ST elevated myocardial infarction) GERD (gastroesophageal reflux disease) Diabetic peripheral vascular disease Diabetic nephropathy Chronic kidney disease (CKD) Bleeding ulcer Anxiety Dyslipidemia Chronic systolic heart failure Pacemaker Congestive heart failure (CHF) Cerebral palsy Anxiety and depression Heart failure with reduced ejection fraction Insomnia Transient ischemic attack AV node dysfunction Ischemic cardiomyopathy Presence of biventricular implantable cardioverter-defibrillator Ulcer Restless legs High cholesterol Former smoker ICD (implantable cardioverter-defibrillator) in place Coronary artery disease CVA (cerebral vascular accident) PFO (patent foramen ovale) Cardiac resynchronization therapy defibrillator (REEL TENDER-D) in place Diabetes mellitus Myocarditis Hyperlipidemia Hypertension Home Medications ?Medication ?Instructions ?Recorded ?Last Taken ?Type clonazepam 1 mg tablet 1 mg PO QHS anxiety 11/18/14 10/06/23 History trazodone 50 mg tablet 50 mg PO DAILY PRN Anxiety 11/18/14 10/06/23 History metoprolol succinate 25 mg 12.5 mg PO DAILY blood pressure 09/28/23 10/07/23 History tablet,extended release 24 hr cholecalciferol (vitamin D3) 25 50 mcg (2 x 25 mcg (1,000 unit)) 09/30/23 10/06/23 Rx mcg (1,000 unit) tablet PO QHS supplement #0 tabs aspirin 81 mg tablet,delayed 81 mg PO .COMPLEX heart 10/01/23 10/07/23 History release spironolactone 25 mg tablet 12.5 mg PO MOWEFR FLUID 10/07/23 10/06/23 History metformin 500 mg tablet,extended 500 mg PO DAILY blood sugars 02/21/24 Unknown History release 24 hr rosuvastatin 20 mg tablet 20 mg PO QHS cholesterol 02/21/24 Unknown History sacubitril 24 mg-valsartan 26 mg 0.5 tab PO BID heart 02/21/24 Unknown History tablet (Entresto) ascorbic acid (vitamin C) 500 mg 500 mg PO 1000 30 days #30 tabs 03/13/24 Unknown Rx tablet clopidogrel 75 mg tablet 75 mg PO DAILY #0 tabs 03/13/24 Unknown Rx prochlorperazine maleate 5 mg 10 mg (2 x 5 mg) PO Q4H PRN PRN 03/13/24 Unknown Rx tablet Nausea/Vomiting 30 days #120 tabs dicyclomine 10 mg capsule 20 mg (2 x 10 mg) PO TIDAC 90 days 05/23/24 Unknown Rx #540 caps acetaminophen 500 mg tablet 500 mg PO Q6H PRN PRN Pain Score 06/13/24 Unknown History 1-10 baclofen 5 mg tablet 5 mg PO .QID muscle spasms 06/13/24 Unknown History cyanocobalamin (vitamin B-12) 500 500 mcg PO DAILY 06/13/24 Unknown History mcg tablet docusate sodium 100 mg capsule 100 mg PO BID PRN constipation 06/13/24 Unknown History empagliflozin 10 mg tablet 5 mg PO BID diabetes 06/13/24 Unknown History (Jardiance) furosemide 20 mg tablet 20 mg PO QDAY PRN for 2lb weight 06/13/24 Unknown History gain loratadine 10 mg tablet (Claritin) 10 mg PO DAILY 06/13/24 Unknown History melatonin 10 mg tablet 5 mg PO HS 06/13/24 Unknown History multivitamin 2 tab PO DAILY 06/13/24 Unknown History oxybutynin chloride 5 mg 5 mg PO Q OTHER DAY bladder 06/13/24 Unknown History tablet,extended release 24 hr amoxicillin 875 mg-potassium 1 tab PO BID 7 days #14 tabs 06/28/24 Unknown Rx clavulanate 125 mg tablet Allergy/AdvReac Type Severity Reaction Status Date / Time No Known Allergies Allergy Verified 02/21/24 14:04 Family History Father Heart disease Myocardial infarction Mother Anxiety and depression Suicide and self-inflicted injury from suicide age 52. Surgical History Presence of stent in coronary artery History of bilateral cataract extraction History of skin surgery S/P colon polypectomy History of cardiac defibrillator placement History of cholecystectomy History of coronary artery stent placement Social History household members: spouse Smoking Status: Former smoker how long ago did patient quit smokin-1.5 ppd from teen until quit in 2008. alcohol intake: never substance use type: does not use ROS Constitutional Constitutional: Reports anorexia; Denies change in weight, chills, fatigue, fever(s), malaise, night sweats, weakness or other Eyes Eyes: Denies blurry vision, change in eye color, change in vision, discharge from eye(s), double vision, erythema, eye pain, loss of vision or other ENT HEENT: Denies abnormal hearing, dysphagia, ear pain, epistaxis, headache(s), hearing loss, nasal congestion, nasal discharge, post nasal drip, sinus pressure, sore throat or other Cardiovascular Cardiovascular: Denies chest pain, claudication, dyspnea on exertion, edema, lightheadedness, orthopnea, palpitations, paroxysmal nocturnal dyspnea, rapid heart rate, syncope or other Respiratory/Chest Respiratory/Chest: Denies cough, dyspnea, excessive phlegm production, hemoptysis, productive cough, shortness of breath at rest, shortness of breath with exertion, wheezing or other Gastrointestinal Gastrointestinal: Reports abdominal pain, diarrhea, hematochezia and loose stools; Denies coffee ground emesis, constipation, dyspepsia, hematemesis, melena, nausea, vomiting or other Genitourinary Genitourinary: Denies burning urination, difficulty urinating, dysuria, hematuria, nocturia, urinary frequency, urinary hesitancy, urinary incontinence, urinary urgency or other Musculoskeletal Musculoskeletal: Denies arthralgias, back pain, joint pain, joint stiffness, joint swelling, myalgias, neck pain or other Neurologic Neurologic: Denies abnormal gait, abnormal speech, confusion, disequilibrium, dizziness, focal weakness, headache(s), numbness, paresthesias, seizure-like activity, seizures, syncope, tingling, tremor(s) or other Psychiatric Psychiatric: Reports anxiety and depression; Denies homicidal ideation, suicidal ideation or other Endocrine Endocrinology: Denies change in body appearance, cold intolerance, excessive sweating, heat intolerance, polydipsia, polyuria or other Hematologic/Lymphatic Hematologic/Lymphatic: Reports anemia and easy bruising; Denies easy bleeding, lymphadenopathy or other Allergic/Immunologic Allergic/Immunologic: Denies rhinitis, hives, eczemia, asthma or other Vital Signs Vital Signs Vital Signs: 07/03/24 12:42 07/03/24 15:30 07/03/24 15:38 Temperature 96.7 F L Temperature Source Temporal Pulse Rate 80 73 Pulse Rate [Lying] 65 Respiratory Rate 16 17 Blood Pressure 107/46 L 123/107 H Blood Pressure [Lying] 111/61 Blood Pressure [Sitting (for 1 minute prior to obtaining)] 114/67 Blood Pressure [Standing (for 1 minute prior to obtaining)] 99/64 Blood Pressure Mean 66 112 Blood Pressure Mean [Lying] 77 Blood Pressure Mean [Sitting (for 1 minute prior to obtaining)] 82 Blood Pressure Mean [Standing (for 1 minute prior to obtaining)] 75 Pulse Ox 99 98 Oxygen Delivery Method Room Air Room Air 07/03/24 17:00 07/03/24 18:50 07/03/24 18:51 Temperature 98 F Temperature Source Pulse Rate 60 60 61 Pulse Rate [Lying] Respiratory Rate 18 18 15 Blood Pressure 116/67 114/67 99/64 Blood Pressure [Lying] Blood Pressure [Sitting (for 1 minute prior to obtaining)] Blood Pressure [Standing (for 1 minute prior to obtaining)] Blood Pressure Mean 83 82 75 Blood Pressure Mean [Lying] Blood Pressure Mean [Sitting (for 1 minute prior to obtaining)] Blood Pressure Mean [Standing (for 1 minute prior to obtaining)] Pulse Ox 98 97 97 Oxygen Delivery Method Room Air Room Air Weight Weight: 62.596 kg Body Mass Index (BMI) 20.9 Physical Exam Const alert, oriented x3 and no apparent distress; Negative for healthy appearing Constitutional Narrative: Thin, older, white female, lying in bed, appears older than stated age, at bedside, appears chronically ill but no acute toxicity noted General Appearance: cooperative HEENT normocephalic, head/scalp atraumatic, hearing grossly normal bilaterally and moist oral mucous membranes HEENT Narrative: Mallampati 2, no thrush Eyes PERRL, EOMs intact bilaterally and conjunctivae normal Neck no lymphadenopathy and supple Neck Narrative: Trachea midline, no thyroid enlargement Resp normal respiratory effort, no retractions, no use of accessory muscles and clear to auscultation bilaterally Resp Narrative: Diffusely diminished but clear Auscultation: Negative for rales, rhonchi or wheezes Cardio regular rate, regular rhythm, S1 normal heart sound, S2 normal heart sound, no murmurs, no rub, no gallops and no clicks GI normal to inspection, nondistended, normoactive bowel sounds, soft to palpation and non-tender Extremity no clubbing, cyanosis or edema Extremity Narrative: Decreased lean muscle mass, pedal pulses are 1+, Skin no rashes or lesions noted, no wounds, skin turgor normal, no jaundice, no petechiae and no mottling Skin Narrative: Skin is thin Neuro oriented x3, moves all extremities and no focal motor deficits Speech: speech normal Psych affect normal Psych Narrative: Eye contact is good and patient fears comfortable Results Lab / Micro Data 07/03/24 15:55 07/03/24 15:55 Labs: Laboratory Results - last 24 hr 07/03/24 15:55: WBC 5.0, RBC 3.62 L, Hgb 10.9 L, Hct 33.4 L, MCV 92.3, MCH 30.1, MCHC 32.6, RDW Std Deviation 45.6 H, RDW Coeff of Edita 13.4, Plt Count 191, MPV 10.8, Immature Gran % (Auto) 0.600, Neut % (Auto) 61.9, Lymph % (Auto) 28.6, Harrison % (Auto) 6.7, Eos % (Auto) 1.8, Baso % (Auto) 0.4, Absolute Neuts (auto) 3.1, Absolute Lymphs (auto) 1.44, Nucleated RBC % 0, ESR 49 H, PT 15.0 H, INR 1.2, APTT 28.2, Sodium 140, Potassium 3.8, Chloride 109 H, Carbon Dioxide 24.0, Anion Gap 7, BUN 17, Creatinine 1.29 H, Est GFR (MDRD) Af Amer 52 L, Est GFR (MDRD) Non-Af 43 L, BUN/Creatinine Ratio 13.2, Glucose 166 H, Calcium 9.0, Total Bilirubin 0.40, AST 28, ALT 26, Alkaline Phosphatase 50, Lactate Dehydrogenase 199, C-React Prot Ext Range 90.10 H, Total Protein 7.4, Albumin 3.1 L, Globulin 4.3 H, Albumin/Globulin Ratio 0.7 L 07/03/24 16:06: PT Cancelled, INR Cancelled, APTT Cancelled, Sodium Cancelled, Potassium Cancelled, Chloride Cancelled, Carbon Dioxide Cancelled, Anion Gap Cancelled, BUN Cancelled, Creatinine Cancelled, Estim Creat Clear Calc Cancelled, Est GFR (MDRD) Af Amer Cancelled, Est GFR (MDRD) Non-Af Cancelled, BUN/Creatinine Ratio Cancelled, Glucose Cancelled, Calcium Cancelled, Total Bilirubin Cancelled, AST Cancelled, ALT Cancelled, Alkaline Phosphatase Cancelled, Total Protein Cancelled, Albumin Cancelled, Globulin Cancelled, Albumin/Globulin Ratio Cancelled Micro: Microbiology 07/03/24 17:29 Stool Stool Occult Blood (EDUARDO) - Final Occult Blood Positive Imaging Radiology Impression Acute Abdomen Series 07/03/24 16:15 IMPRESSION: Negative chest and abdominal series. Electronically Signed: Iron Ferrer MD at 17:40 EDT , Assessment & Plan Assessment/Plan (1) Acute lower gastrointestinal bleeding: (2) Anemia: (3) Ischemic colitis: PLAN: Plan Acute lower GI bleed -Patient with colonoscopy on 02/2024 with pathology positive for ischemic colitis -Highly suspect recurrent ischemic colitis -Patient with multiple risk factors to predispose her to ischemic colitis -Plan is for colonoscopy tomorrow--> prep ordered and this was discussed with patient -Continue aspirin but hold Plavix per discussion with GI -Okay per GI to discontinue antibiotics -Every 6 hour hemoglobin -Gentle hydration with IV fluids due to n.p.o. status and bowel prep--> Limited fluid order placed -GI consultation-discussed with Dr. Levy Santana on chronic anemia -Hemoglobin 5 days ago was 11.9 and now down to 10.9 -Continue aspirin but hold Plavix per discussion with GI -Every 6 hours H&H -No current need for transfusion but recommend transfusion for hemoglobin less than 7 or precipitous drop CAD/HTN/HPL/ischemic cardiomyopathy with chronic HFrEF -Heart failure is currently compensated -Gentle hydration for bowel prep and scope tomorrow with limited fluid order placed -Continue home aspirin -Hold home Plavix -Hold home Entresto today with likely reinitiation tomorrow -Hold home Lasix -Continue home metoprolol -Continue home rosuvastatin -Hold home Aldactone -Patient status post pacer ICD -Most recent echocardiogram in our system is from 09/29/2023 which time she had an EF of 55% no diastolic dysfunction -Continue outpatient follow-up DM-2 -Open hold home oral agents -SSI -Patient currently on a clear liquid diet with bowel prep -Recommend cardiac/carb controlled diet once p.o. 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
[2024-07-03] MEDS: 0.9% Saline Lock 10 ML Syringe IV (20:32)
[2024-07-03] MEDS: Lactated Ringers 1,000 ML 70 ML IV (20:33)
[2024-07-03] MEDS: Bisacodyl 5 MG Tablet 20 MG PO (20:36)
[2024-07-03 22:00] LABS: Hematocrit 30.8 % (37-47); Hemoglobin 9.8 g/dL (12.0-15.0)
[2024-07-03] MEDS: Polyethylene Glycol 3350 BOWEL PREP PO (22:35)
[2024-07-03] MEDS: Baclofen 10 MG Tablet 5 MG PO (22:37)
[2024-07-03] MEDS: Atorvastatin Calcium 40 MG Tablet PO (22:37)
[2024-07-03] MEDS: Pantoprazole Sodium 40 MG Tablet PO (22:39)
[2024-07-03] MEDS: clonazePAM 1 MG Tablet PO (22:39)
[2024-07-04] VITALS (11 sets, daily range): BP systolic 91–128; BP diastolic 41–61; PULSE 58–60; RESP 12–16; TEMP 36.4–36.8; O2SAT 91–100; BMI 20.9
--- NOTE | 2024-07-04 | COLBX_PTH ---
PATIENT: BETTY CARO LOC: MS3 U#:[id number] AGE/SX: 69/F ROOM: [facility] RE07/03/[address]: Dr. Anabell Simms MD : 1955 BED: 1 DIS: 07/05/2024 SPEC #: [id number] RECD: 07/05/24 10:23 STATUS: RONEN GALLOSkyler #: [id number] LADONNA: 07/04/24 00:[address]: Shan Lockett DEPT: SURGICAL PATHOLOGY RECD BY: Bailee Arias ENTERED: 07/05/24 11:49 SP TYPE: COLON BX BRADFORD DR: DO Dr. Miya Adkins DO Dr. Paige Pierce, MD Tissues: COLON BIOPSY Procedures: Surgery Specimen Level IV HEADER OPERATION: Colonoscopy with biopsy and cautery PRE-OP DIAGNOSIS: Acute lower GI bleed, anemia, ischemic colitis TISSUE SUBMITTED: Hepatic flexure MICROSCOPIC DIAGNOSIS Colonic polyp at hepatic flexure, biopsy: Changes of ischemic colitis. Fibrinopurulent exudate. Benign lymphoid aggregates. See comment. 07/06/2024 COMMENT Immunohistochemistry ([id number]) supports the above diagnosis. Case has been reviewed in consultation with Dr. Christopher who concurs with the above diagnosis. IDC:CHERELLE MICROSCOPIC DESCRIPTION Slides are reviewed. GROSS DESCRIPTION Received in fixative is one container labeled with the patient's name and designated Hepatic flexure. The specimen consists of multiple irregular fragments of light cutler soft tissue that in aggregate measure 0.8 x 0.2 x 0.1 cm. The specimen is totally submitted in one cassette. 07/05/2024 TC:2 CPT:48931
--- NOTE | 2024-07-04 | IMM_PTH ---
PATIENT: BETTY CARO LOC: MS3 U#:[id number] AGE/SX: 69/F ROOM: [facility] [place] RE07/03/[address]: Dr. Anabell Simms MD : 1955 BED: 1 DIS: 07/05/2024 SPEC #: [id number] RECD: 07/06/24 11:16 STATUS: SOUT REQ #: [id number] LADONNA: 07/04/24 00:[address]: Shan Lockett DEPT: IMMUNOHISTOCHEMISTRY RECD BY: Rory De León ENTERED: 07/06/24 11:16 SP TYPE: IMMUNO OTHR DR: DO Dr. Miya Adkins, DO Dr. Anabell Simms MD Tissues: Colon, NOS Procedures: CD20 (add) CD45 (add) CD5 (add) CD79A (add) KI-67 (add) CD3 (initial) Comments: @ Ordering doctor for CD3 edited from to @ by DANTE at 07/06/24 1116 @ Ordering doctor for CD20. edited from to @ by DANTE at 07/06/24 1116 @ Ordering doctor for CD45. edited from to @ by DANTE at 07/06/24 1116 @ Ordering doctor for CD5. edited from to @ by DANTE at 07/06/24 1116 @ Ordering doctor for CD79A. edited from to @ by DANTE at 07/06/24 1116 @ Ordering doctor for KI67. edited from to @ by DANTE at 07/06/24 1116 @ Submitting doctor edited from to @ by DAISY at 07/06/24 1116 PHYSICIAN & INSTITUTION [place] [address] SPECIMEN INFORMATION: Tissue Source: Hepatic flexure Clinical Info: Acute lower GI bleed, anemia, ischemic colitis Specimen Number: [id number] CPT code: 91130,16383g7 METHODOLOGY: Deparaffinized sections of prefer/formalin-fixed tissue or PAP/DQ stained slides are incubated with monoclonal/polyclonal antibodies/oligonucleotide probes. Localization is made via biotin free immunoperoxidase method. Appropriate controls are performed and reacted as expected. Results on target cell population are indicated in the following table: RESULTS: ANTIBODY / CLONE RESULT CD3 (PS1) positive CD5 (SP10) positive CD20 (L26) positive CD45 (RP2/18) positive CD79a (11E3) positive Ki-67 (30-9) positive, low These tests were developed and their performance characteristics determined by [facility]. They may not have been cleared or approved by the U.S. Food and Drug Administration. The FDA has determined that such clearance or approval is not necessary. The above immunohistochemical/dualISH markers are ordered and reviewed by the Pathologist. INTERPRETATION: Hepatic flexure, biopsy: Polytypic lymphoid aggregates. AM.mr 07/07/2024
[2024-07-04 00:19] LABS: Bedside Glucose 76 mg/dL (74-106)
[2024-07-04 02:41] LABS: Hematocrit 30.4 % (37-47); Hemoglobin 9.6 g/dL (12.0-15.0)
[2024-07-04 06:27] LABS: Bedside Glucose 83 mg/dL (74-106)
[2024-07-04 07:49] LABS: Absolute Lymphocyte Count 2.01 X10^3/uL (0.83-4.51); Absolute Neutrophil Count 1.8 X10^3/uL (2.0-7.7); Basophil# 0.03 X10^3/uL; Basophil% 0.7 % (0-1); Eosinophil# 0.17 X10^3/uL; Eosinophils% 3.8 % (0-5); Hematocrit 29.7 % (37-47); Hemoglobin 9.5 g/dL (12.0-15.0); Lymphocyte # 2.01 X10^3/ul (0.83-4.51); Lymphocyte % 45.3 % (19-41); Mean Corpuscular Volume 93.7 fL (81-99); Mean Platelet Vol. 9.7 fl (6.2-12.0); Monocyte# 0.37 X10^3/uL; Monocyte% 8.3 % (0-10); NRBC Flagged by Analyzer 0 % (0-5); Neutrophil # 1.83 X10^3/uL (2.7-7.7); Neutrophil % 41.2 % (47-70); Platelet Count 181 K/mm3 (150-450); RBC Distribution Width CV 13.4 % (11.6-14.6); RBC Distribution Width SD 46.1 fl (35.1-43.9); Red Blood Count 3.17 M/mm3 (4.2-5.4); White Blood Count 4.4 K/mm3 (4.4-11.0)
--- NOTE | 2024-07-04 08:07 | CASEMGMT ---
Social Work- Pt has directives in chart naming , Rishi, as primary agent. EDUARDO Iglesias
[2024-07-04 08:13] LABS: ALB/GLOB Ratio 0.7 RATIO (0.9-2.4); AST(SGOT) 26 U/L (15-37); Alanine Aminotransfer ALT/SGPT 23 U/L (13-56); Albumin, Serum 2.5 g/dL (3.2-5.0); Alkaline Phosphatase 37 U/L (45-117); Anion Gap 3 (5-15); BUN 10 mg/dL (7-18); Calcium,Total 8.4 mg/dL (8.5-10.1); Chloride 112 mmol/L (98-107); Creatinine, Serum 0.91 mg/dL (0.55-1.02); EST Glomerular Filtration Rate 65 mL/min (>60); Est Glom Filt Rate - Afr Amer 78 mL/min (>60); Estimated Creatinine Clearance 56.13 ml/min; Globulin 3.4 g/dL (2.2-4.2); Glucose 93 mg/dL (74-106); Magnesium 1.9 mg/dL (1.6-2.6); Phosphorus 3.4 mg/dL (2.5-4.9); Potassium 3.7 mmol/L (3.5-5.1); Protein, Total 5.9 g/dL (6.4-8.2); Sodium Level 140 mmol/L (136-145)
[2024-07-04] MEDS: Lactated Ringers 1,000 ML 70 ML IV (10:33)
[2024-07-04] MEDS: Pantoprazole Sodium 40 MG Tablet PO ×2 (10:54→22:06)
[2024-07-04] MEDS: Baclofen 10 MG Tablet 5 MG PO ×4 (10:55→22:05)
[2024-07-04] MEDS: Escitalopram Oxalate 10 MG Tablet PO (10:55)
[2024-07-04] MEDS: Dicyclomine 10 MG Capsule 20 MG PO ×2 (10:55→18:57)
[2024-07-04 12:30] LABS: Bedside Glucose 98 mg/dL (74-106)
--- NOTE | 2024-07-04 13:41 | PN.HOSP_ITS ---
Reason for Visit Reason for Visit: Diagnoses Anemia, unspecified (07/03/24) Vascular disorder of intestine, unspecified (07/03/24) Gastrointestinal hemorrhage, unspecified (07/03/24) Subjective Subjective Having multiple bowel movements with the bowel prep, initially did have blood but is now beginning to clear, feels a little unwell overall but no new or acute complaints Objective Data Objective Data Vital Signs: Vital Signs Temp Pulse Resp BP Pulse Ox O2 Del Method 97.9 F 58 L 16 108/41 L 96 Room Air 07/04/24 08:00 07/04/24 08:00 07/04/24 08:00 07/04/24 08:00 07/04/24 10:02 07/04/24 10:02 Oxygen Delivery Method Room Air Weight: 62.7 kg Body Mass Index (BMI) 20.9 Intake & Output: Intake and Output for Last 24 Hours 07/02/24 07/03/24 07/04/24 23:59 23:59 23:59 Intake Total 1800 / 1800 1780 / 1780 Balance 1800 / 1800 1780 / 1780 Lab / Micro Data 07/04/24 07:40 07/04/24 07:41 Labs: Laboratory Results - last 24 hr 07/03/24 15:55: WBC 5.0, RBC 3.62 L, Hgb 10.9 L, Hct 33.4 L, MCV 92.3, MCH 30.1, MCHC 32.6, RDW Std Deviation 45.6 H, RDW Coeff of Edita 13.4, Plt Count 191, MPV 10.8, Immature Gran % (Auto) 0.600, Neut % (Auto) 61.9, Lymph % (Auto) 28.6, Chambers % (Auto) 6.7, Eos % (Auto) 1.8, Baso % (Auto) 0.4, Absolute Neuts (auto) 3.1, Absolute Lymphs (auto) 1.44, Nucleated RBC % 0, ESR 49 H, PT 15.0 H, INR 1.2, APTT 28.2, Sodium 140, Potassium 3.8, Chloride 109 H, Carbon Dioxide 24.0, Anion Gap 7, BUN 17, Creatinine 1.29 H, Est GFR (MDRD) Af Amer 52 L, Est GFR (MDRD) Non-Af 43 L, BUN/Creatinine Ratio 13.2, Glucose 166 H, Calcium 9.0, Total Bilirubin 0.40, AST 28, ALT 26, Alkaline Phosphatase 50, Lactate Dehydrogenase 199, C-React Prot Ext Range 90.10 H, Total Protein 7.4, Albumin 3.1 L, Globulin 4.3 H, Albumin/Globulin Ratio 0.7 L 07/03/24 16:06: PT Cancelled, INR Cancelled, APTT Cancelled, Sodium Cancelled, Potassium Cancelled, Chloride Cancelled, Carbon Dioxide Cancelled, Anion Gap Cancelled, BUN Cancelled, Creatinine Cancelled, Estim Creat Clear Calc Cancelled, Est GFR (MDRD) Af Amer Cancelled, Est GFR (MDRD) Non-Af Cancelled, BUN/Creatinine Ratio Cancelled, Glucose Cancelled, Calcium Cancelled, Total Bilirubin Cancelled, AST Cancelled, ALT Cancelled, Alkaline Phosphatase Cancelled, Total Protein Cancelled, Albumin Cancelled, Globulin Cancelled, Albumin/Globulin Ratio Cancelled 07/03/24 21:37: Hgb 9.8 L, Hct 30.8 L 07/03/24 23:57: POC Glucose 76 07/04/24 02:27: Hgb 9.6 L, Hct 30.4 L 07/04/24 05:45: POC Glucose 83 07/04/24 07:40: WBC 4.4, RBC 3.17 L, Hgb 9.5 L, Hct 29.7 L, MCV 93.7, MCH 30.0, MCHC 32.0, RDW Std Deviation 46.1 H, RDW Coeff of Edita 13.4, Plt Count 181, MPV 9.7, Immature Gran % (Auto) 0.700, Neut % (Auto) 41.2 L, Lymph % (Auto) 45.3 H, Chambers % (Auto) 8.3, Eos % (Auto) 3.8, Baso % (Auto) 0.7, Absolute Neuts (auto) 1.8 L, Absolute Lymphs (auto) 2.01, Nucleated RBC % 0 07/04/24 07:41: Sodium 140, Potassium 3.7, Chloride 112 H, Carbon Dioxide 25.0, Anion Gap 3 L, BUN 10, Creatinine 0.91, Estim Creat Clear Calc 56.13, Est GFR (MDRD) Af Amer 78, Est GFR (MDRD) Non-Af 65, BUN/Creatinine Ratio 11.0, Glucose 93, Calcium 8.4 L, Phosphorus 3.4, Magnesium 1.9, Total Bilirubin 0.20, AST 26, ALT 23, Alkaline Phosphatase 37 L, Total Protein 5.9 L, Albumin 2.5 L, Globulin 3.4, Albumin/Globulin Ratio 0.7 L 07/04/24 12:09: POC Glucose 98 Micro: Microbiology 07/03/24 17:29 Stool Stool Occult Blood (EDUARDO) - Final Occult Blood Positive Radiography Diagnostic Testing: Radiology Impression Acute Abdomen Series 07/03/24 16:15 IMPRESSION: Negative chest and abdominal series. Electronically Signed: Iron Ferrer MD at 17:40 EDT , Physical Exam Narrative General: Alert, oriented HEENT: Atraumatic, normocephalic Eyes: Anicteric, normal conjunctiva, extraocular movements grossly intact Neck: Supple Respiratory: Clear to auscultation bilaterally, normal respiratory effort Cardiovascular: Regular rate and rhythm GI: Soft, nondistended, no rebound, guarding, rigidity Extremities: No edema Musculoskeletal: Moving all extremities Neuro: No overt focal neurological deficits Skin: No rashes appreciated Psych: Cooperative Assessment & Plan Assessment/Plan (1) Acute lower gastrointestinal bleeding: (2) Anemia: (3) Ischemic colitis: PLAN: Plan #Acute on chronic anemia secondary to lower GI bleed in setting of history of ischemic colitis -Patient with colonoscopy on 02/2024 with pathology positive for ischemic colitis -Highly suspect recurrent ischemic colitis -Patient with multiple risk factors to predispose her to ischemic colitis -Plan is for colonoscopy tomorrow--> prep ordered and this was discussed with patient -Continue aspirin but hold Plavix per discussion with GI -Okay per GI to discontinue antibiotics -Every 6 hour hemoglobin -Gentle hydration with IV fluids due to n.p.o. status and bowel prep--> Limited fluid order placed -GI consultation-discussed with Dr. Lockett -07/04: Patient underwent bowel prep, initially had blood but this began to clear. Hemoglobin this a.m. 9.5 and has begun to stabilize, awaiting colonoscopy. Chronic medical problems: #CAD/HTN/HPL/ischemic cardiomyopathy with chronic HFrEF -Heart failure is currently compensated -Gentle hydration for bowel prep and scope tomorrow with limited fluid order placed -Continue home aspirin -Hold home Plavix -Hold home Entresto today with likely reinitiation tomorrow -Hold home Lasix -Continue home metoprolol -Continue home rosuvastatin -Hold home Aldactone -Patient status post pacer ICD -Most recent echocardiogram in our system is from 09/29/2023 which time she had an EF of 55% no diastolic dysfunction -Continue outpatient follow-up -07/04: Hemodynamically stable and on room air, fluids with stop date, will continue present management #DM-2 -Open hold home oral agents -SSI -Patient currently on a clear liquid diet with bowel prep -Recommend cardiac/carb controlled diet once p.o. 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 -Serum creatinine relatively stable at current value of 1.29 -Gentle hydration as above for bowel prep -Continue to monitor renal function -07/04: Creatinine improved further today, has fluids with stop date, continue present management #Diabetic retinopathy #Chronic pain #Urinary incontinence #Anxiety/depression DVT prophylaxis -SCDs -Chemoprophylaxis on hold due to GI bleed Time spent in the patient's overall evaluation,decision-making process, review of diagnostic data, adjustment of management, discussion with other providers, nursing nursing and ancillary staff involved in patient's care documentation, 35 Minutes Charges/Coding Visit Charges Inpatient E&M: 11159 Subs Hosp L2
[2024-07-04 14:07] LABS: Hematocrit 30.3 % (37-47); Hemoglobin 9.7 g/dL (12.0-15.0)
--- NOTE | 2024-07-04 14:55 | CASEMGMT ---
Met with patient to complete DUONG form. DUONG form explained to patient who voiced understanding and signed form. Original form placed in pt?s chart and copy provided to patient. Danielle Casey, Discharge Planning Asst
--- NOTE | 2024-07-04 15:32 | CASEMGMT ---
RN ALEJANDRO Assessment Pt is under OBS status. Noted 6-Click score is 17. This RN CM opted to complete assessment incase any DC needs arise. Face to Face with patient for initial transition planning/care coordination assessment. TANIA ALLEN introduced self and role at [facility], pt voices understanding. Pt is A&Ox4 and is resting comfortably in bed and is calm. Pt at bedside. Care providers, pharmacy, and demographics verified. Admitting dx: OBED MURPHYSantiago Strata: 3 PCP: Marci Nuñez Specialists: Leeanna EGAN ([facility] Neuro), Job (Pod), Patience (Psych) Preferred Pharmacy: [facility] Insurance: [employer] Prescription Benefit: Yes LNOK: Cuate Pena (H) Living Arrangements: Pt lives with her in a two story home with a FFSU and two steps to enter ADLs/IADLs: States ind at baseline and that her is able to assist her as needed with tasks such as cooking and cleaning. Transportation: Pt states that she is afraid to drive but is able to. Pt provides transportation DME: [employer] and supplies. Shower chair. Quad Cane. Grab bars. FWW. HHC/SNF: Hx at [facility] TCU. Hx with [facility] HH Pt?s goal: Home with pt Plan: Pt is to undergo a scope today and potentially DC tomorrow. At this time, the pt denies needs moving forward including HHC, OP Tx, or SNF placement. Pt states that she feels safe discharging home with her with no additional needs at this time. Archana Alfonso RN, CM
--- NOTE | 2024-07-04 15:46 | NURSING ---
pt to endo
[2024-07-04] MEDS: Lactated Ringers 1,000 ML 15 ML IV (16:05)
[2024-07-04 16:22] LABS: Bedside Glucose 82 mg/dL (74-106)
--- NOTE | 2024-07-04 16:51 | PCM.PRE.AN2 ---
ASA Classification* ASA Classification ASA Classification: 3 Assessment & Plan Anesthesia* Anesthesia Assessment Anesthesia Assessment: Discussed sedation and/or anesthesia options, risks, benefits, and alternatives with patient/parents/legal guardian/POA. Questions invited. The patient/parents/legal guardian/POA seems to understand and agrees to proceed with anesthesia plan. Reviewed the physical assessment, medical history, allergy history and patient home medications list prior to surgery/procedure/anesthetic and documented any changes. Performed airway and anesthesia risk assessments. Anesthesia Type Anesthesia Type: MAC History Source History Obtained from:: Patient and Chart Anesthesia Focused Assessment* Temperature: 98.2 F Pulse Rate: 58 Blood Pressure: 125/58 Respiratory Rate: 16 Pulse Ox: 100 Oxygen Delivery Method: Room Air Airway Assessment Mouth opens: >3 cm Mallampati Score: IV Teeth Condition: Loose (Upper implant is slightly loose.) and Missing (Missing teeth on the lower incisors.) Neck Range of motion (ROM): Full ROM Focused Labs Anesthesia Preop lab: CBC WBC 4.4 K/mm3 (4.4-11.0) 07/04/24 07:40 RBC 3.17 M/mm3 (4.2-5.4) L 07/04/24 07:40 Hgb 9.7 g/dL (12.0-15.0) L 07/04/24 14:00 Hct 30.3 % (37-47) L 07/04/24 14:00 Plt Count 181 K/mm3 (150-450) 07/04/24 07:40 CHEMISTRY Potassium 3.7 mmol/L (3.5-5.1) 07/04/24 07:41 Sodium 140 mmol/L (136-145) 07/04/24 07:41 Magnesium 1.9 mg/dL (1.6-2.6) 07/04/24 07:41 Phosphorus 3.4 mg/dL (2.5-4.9) 07/04/24 07:41 BUN 10 mg/dL (7-18) 07/04/24 07:41 Creatinine 0.91 mg/dL (0.55-1.02) 07/04/24 07:41 Glucose 93 mg/dL (74-106) 07/04/24 07:41 POC Glucose 82 mg/dL (74-106) 07/04/24 16:04 TSH 2.94 uIU/mL (0.358-3.74) 09/28/23 20:10 COAG PT 15.0 SECONDS (11.7-14.9) H 07/03/24 15:55 Pre-Assessment Diagnosis/Proposed Procedure Planned Operative Procedure(s): Colonoscopy with possible biopsy and/or polypectomy. 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 When Was Last Pacemaker Check 202202/21/24 22:13 QUESTION #4 FULL TEXT: You/Your Family Experience fever (hyperthermia) with Anesthesia Last Oral Intake Last Oral intake: Last Oral Intake NPO since Meds taken in AM with sips of water? Meds patient instructed to take am of surgery Any additional information?: Yes NPO since: 00:30 (Patient finished prep. Midnight.) PONV PONV - agricultural purchasing agent: PONV - agricultural purchasing agent Female HX of Motion Sickness HX of N/V After Surgery Non-Smoker Duration of Surgery greater than 60 minutes Number of Risk Factors PONV Score Height & Weight Height & Weight: Anesthesia: Height & Weight Height 5 ft 8 in 07/04/24 11:51 Weight: 62.7 kg 07/04/24 11:51 Body Mass Index (BMI) 20.9 07/04/24 05:49 Respiratory Assessment Respiratory Assessment - agricultural purchasing agent: Respiratory Tract Infection Hx - agricultural purchasing agent Hx Respiratory Tract Infection No 07/04/24 05:53 STOP Sleep Apnea STOP Sleep Apnea - agricultural purchasing agent: STOP Sleep Apnea - agricultural purchasing agent Hx Hypertension No 07/03/24 19:58 Hx Sleep Apnea No 07/03/24 19:58 CPAP No 07/03/24 19:58 BIPAP No 07/03/24 19:58 Do you snore loudly (louder Yes 07/03/24 19:58 than talking or can be heard Do you often feel tired/ Yes 07/03/24 19:58 fatigued/ sleepy during daytime? Has anyone observed you stop No 07/03/24 19:58 breathing during sleep? STOP Results Positive 07/03/24 19:58 QUESTION #5 FULL TEXT : Do you snore loudly (louder than talking or can be heard through closed doors)? 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 Specify any problems Hx of Preganancy in last 3 No 07/03/24 19:58 Months Nurse Filling Out Transfusion EVIZZO 07/03/24 19:58 & Questions: Date: 07/03/24 07/03/24 19:58 Time: 20:04 07/03/24 19:58 Patient unable to answer at this time (ie. confused, unrespo /Reproduction History /Reproductive History - agricultural purchasing agent: /Reproductive Hx- agricultural purchasing agent Hx Now No 07/04/24 05:53 Gestational Age (in weeks): EDC: Hx Hx Para Hx Section SAB No 07/04/24 05:53 Active Medications Active Medications: Current Medications Generic Name Dose Route Start Last Admin Trade Name Freq PRN Reason Stop Dose Admin Acetaminophen 650 mg 07/03/24 20:09 Acetaminophen 325 Mg Tablet PO Q6H PRN PRN Pain 1-10 Or Fever>100.7 Albuterol Sulfate 2.5 mg 07/03/24 20:09 Albuterol 2.5 Mg/3 Ml Vial.Neb. INHALATION Q2H PRN PRN SOB &/OR WHEEZING Aspirin 81 mg 07/04/24 10:00 07/04/24 11:06 Aspirin E.C. 81 Mg Tablet PO Not Given QODAY VERONA Atorvastatin Calcium 40 mg 07/03/24 22:00 07/03/24 22:37 Atorvastatin Calcium 40 Mg Tablet PO 40 mg QHS VERONA Administration Baclofen 5 mg 07/03/24 22:00 07/04/24 14:01 Baclofen 10 Mg Tablet PO 5 mg 4X/DAY VERONA Administration Clonazepam 1 mg 07/03/24 22:00 07/03/24 22:39 Clonazepam 1 Mg Tablet PO 1 mg QHS VERONA Administration Dicyclomine HCl 20 mg 07/04/24 07:00 07/04/24 10:55 Dicyclomine 10 Mg Capsule PO 20 mg TIDAC VERONA Administration Escitalopram Oxalate 10 mg 07/04/24 10:00 07/04/24 10:55 Escitalopram Oxalate 10 Mg Tablet PO 10 mg DAILY VERONA Administration Glucagon 1 mg 07/03/24 20:09 Glucagon 1 Mg/Ml Syringe IM X1 PRN HYPOGLYCEMIA Protocol Dextrose 250 mls @ 0 mls/hr 07/03/24 20:09 Dextrose 10%-Water IV .Q0M PRN HYPOGLYCEMIA Protocol As Directed Lactated Ringer's 1,000 mls @ 15 mls/hr 07/04/24 16:00 07/04/24 16:05 IV 15 mls/hr .Q48H VERONA Administration Insulin Human Lispro 0 unit 07/04/24 00:00 07/04/24 12:11 Insulin Lispro 100 Unit/Ml Insuln.Pen SC Not Given Q6 VERONA Protocol Melatonin 3 mg 07/03/24 20:09 Melatonin 3 Mg Tablet PO QHS PRN PRN INSOMNIA Ondansetron HCl 4 mg 07/03/24 20:09 Ondansetron 4 Mg/2 Ml Vial IV Q8H PRN PRN NAUSEA/VOMITING Oxycodone HCl 5 mg 07/03/24 20:09 Oxycodone 5 Mg Tablet PO Q6H PRN PRN Pain Score 4-10 Pantoprazole Sodium 40 mg 07/03/24 22:00 07/04/24 10:54 Pantoprazole Sodium 40 Mg Tablet PO 40 mg BID VERONA Administration Sodium Chloride 10 - 40 ml 07/03/24 20:00 07/03/24 20:32 0.9% Saline Lock 10 Ml Syringe IV 10 ml UD PRN Administration SALINE FLUSH Tolterodine Tartrate 2 mg 07/04/24 10:00 07/04/24 11:05 Tolterodine Tartrate 2 Mg Cap.Sa PO Not Given QODAY VERONA Trazodone HCl 50 mg 07/03/24 20:09 Trazodone 50 Mg Tablet PO DAILY PRN Anxiety PFSH Medical History History of left heart catheterization History of mechanical ventilation Cardiogenic pulmonary edema Acute hypoxic respiratory failure Multiple lung nodules Major depressive disorder Left bundle branch block NSTEMI (non-ST elevated myocardial infarction) GERD (gastroesophageal reflux disease) Diabetic peripheral vascular disease Diabetic nephropathy Chronic kidney disease (CKD) Bleeding ulcer Anxiety Dyslipidemia Chronic systolic heart failure Pacemaker Congestive heart failure (CHF) Cerebral palsy Anxiety and depression Heart failure with reduced ejection fraction Insomnia Transient ischemic attack AV node dysfunction Ischemic cardiomyopathy Presence of biventricular implantable cardioverter-defibrillator Ulcer Restless legs High cholesterol Former smoker ICD (implantable cardioverter-defibrillator) in place Coronary artery disease CVA (cerebral vascular accident) PFO (patent foramen ovale) Cardiac resynchronization therapy defibrillator (MOUNTING MACHINE OPERATOR-D) in place Diabetes mellitus Myocarditis Hyperlipidemia Hypertension Home Medications ?Medication ?Instructions ?Recorded ?Last Taken ?Type clonazepam 1 mg tablet 1 mg PO QHS anxiety 11/18/14 07/02/24 History trazodone 50 mg tablet 50 mg PO DAILY PRN Anxiety 11/18/14 07/02/24 History metoprolol succinate 25 mg 12.5 mg PO DAILY blood pressure 09/28/23 07/02/24 History tablet,extended release 24 hr cholecalciferol (vitamin D3) 25 50 mcg (2 x 25 mcg (1,000 unit)) 09/30/23 07/02/24 Rx mcg (1,000 unit) tablet PO QHS supplement #0 tabs aspirin 81 mg tablet,delayed 81 mg PO .COMPLEX heart 10/01/23 07/02/24 History release spironolactone 25 mg tablet 12.5 mg PO .COMPLEX FLUID 10/07/23 07/02/24 History metformin 500 mg tablet,extended 500 mg PO DAILY blood sugars 02/21/24 07/02/24 History release 24 hr rosuvastatin 20 mg tablet 20 mg PO QHS cholesterol 02/21/24 07/02/24 History sacubitril 24 mg-valsartan 26 mg 0.5 tab PO BID heart 02/21/24 07/02/24 History tablet (Entresto) ascorbic acid (vitamin C) 500 mg 500 mg PO 1000 30 days #30 tabs 03/13/24 07/02/24 Rx tablet clopidogrel 75 mg tablet 75 mg PO DAILY #0 tabs 03/13/24 07/02/24 Rx prochlorperazine maleate 5 mg 10 mg (2 x 5 mg) PO Q4H PRN PRN 03/13/24 07/02/24 Rx tablet Nausea/Vomiting 30 days #120 tabs dicyclomine 10 mg capsule 20 mg (2 x 10 mg) PO TIDAC 90 days 05/23/24 07/02/24 Rx #540 caps acetaminophen 500 mg tablet 500 mg PO Q6H PRN PRN Pain Score 06/13/24 07/01/24 History 1-10 baclofen 5 mg tablet 5 mg PO .QID muscle spasms 06/13/24 07/02/24 History cyanocobalamin (vitamin B-12) 500 500 mcg PO DAILY 06/13/24 07/02/24 History mcg tablet docusate sodium 100 mg capsule 100 mg PO DAILY PRN constipation 06/13/24 07/02/24 History empagliflozin 10 mg tablet 5 mg PO BID diabetes 06/13/24 07/02/24 History (Jardiance) furosemide 20 mg tablet 20 mg PO QDAY PRN for 2lb weight 06/13/24 06/19/24 History gain loratadine 10 mg tablet (Claritin) 10 mg PO DAILY 06/13/24 07/02/24 History melatonin 10 mg tablet 5 mg PO HS 06/13/24 06/19/24 History multivitamin 2 tab PO DAILY 06/13/24 07/02/24 History oxybutynin chloride 5 mg 5 mg PO Q OTHER DAY bladder 06/13/24 07/02/24 History tablet,extended release 24 hr amoxicillin 875 mg-potassium 1 tab PO BID 7 days #14 tabs 06/28/24 07/02/24 Rx clavulanate 125 mg tablet Allergy/AdvReac Type Severity Reaction Status Date / Time No Known Allergies Allergy Verified 02/21/24 14:04 Family History Father Heart disease Myocardial infarction Mother Anxiety and depression Suicide and self-inflicted injury from suicide age 52. Surgical History Presence of stent in coronary artery History of bilateral cataract extraction History of skin surgery S/P colon polypectomy History of cardiac defibrillator placement History of cholecystectomy History of coronary artery stent placement Social History household members: spouse Smoking Status: Former smoker how long ago did patient quit smokin-1.5 ppd from teen until quit in 2008. alcohol intake: never substance use type: does not use Review of Systems (Anesthesia) ROS Narrative System reviewed and no additional complaints, except as documented.
--- NOTE | 2024-07-04 17:22 | EX.PCM.CON.G ---
HPI Consult Data Date of Consult: 07/04/24 HPI Narrative Reason for Consultation: Lower GI bleed HPI Narrative: BETTY CARO, is a 69 F who presented to the emergency department at [facility] on 07/03/2024 with a chief complaint of bright red blood per rectum. She had a previous episode similar to this in February 2024 at which time she had a colonoscopy and was diagnosed with ischemic colitis. She does have a history of hypertension, hyperlipidemia, HFrEF and diabetes with history of vascular disease which do increase her risk for the development of ischemic colitis. She was seen in the emergency department on 06/28/2024 at which time she only had abdominal pain. Her hemoglobin was stable and she had abdominal pain with loose stool and diarrhea but no bright red blood per rectum at that time. CT of the abdomen pelvis was performed at that time with IV contrast and showed changes consistent with colitis. She was placed on Augmentin and discharged home. Since then as noted above she is developed bright red blood per rectum today which has been ongoing issues every time she has her loose stool. She has had decreased p.o. intake but her indicated today her fluid intake has been okay. She denies any abdominal pain at this time. CBC shows an anemia with a hemoglobin of 10.9 down from 11.9 on 06/28/2024. FORMERLY [facility] Medical History History of left heart catheterization History of mechanical ventilation Cardiogenic pulmonary edema Acute hypoxic respiratory failure Multiple lung nodules Major depressive disorder Left bundle branch block NSTEMI (non-ST elevated myocardial infarction) GERD (gastroesophageal reflux disease) Diabetic peripheral vascular disease Diabetic nephropathy Chronic kidney disease (CKD) Bleeding ulcer Anxiety Dyslipidemia Chronic systolic heart failure Pacemaker Congestive heart failure (CHF) Cerebral palsy Anxiety and depression Heart failure with reduced ejection fraction Insomnia Transient ischemic attack AV node dysfunction Ischemic cardiomyopathy Presence of biventricular implantable cardioverter-defibrillator Ulcer Restless legs High cholesterol Former smoker ICD (implantable cardioverter-defibrillator) in place Coronary artery disease CVA (cerebral vascular accident) PFO (patent foramen ovale) Cardiac resynchronization therapy defibrillator (CASH SALES AUDIT CLERK-D) in place Diabetes mellitus Myocarditis Hyperlipidemia Hypertension Home Medications ?Medication ?Instructions ?Recorded ?Last Taken ?Type clonazepam 1 mg tablet 1 mg PO QHS anxiety 11/18/14 07/02/24 History trazodone 50 mg tablet 50 mg PO DAILY PRN Anxiety 11/18/14 07/02/24 History metoprolol succinate 25 mg 12.5 mg PO DAILY blood pressure 09/28/23 07/02/24 History tablet,extended release 24 hr cholecalciferol (vitamin D3) 25 50 mcg (2 x 25 mcg (1,000 unit)) 09/30/23 07/02/24 Rx mcg (1,000 unit) tablet PO QHS supplement #0 tabs aspirin 81 mg tablet,delayed 81 mg PO .COMPLEX heart 10/01/23 07/02/24 History release spironolactone 25 mg tablet 12.5 mg PO .COMPLEX FLUID 10/07/23 07/02/24 History metformin 500 mg tablet,extended 500 mg PO DAILY blood sugars 02/21/24 07/02/24 History release 24 hr rosuvastatin 20 mg tablet 20 mg PO QHS cholesterol 02/21/24 07/02/24 History sacubitril 24 mg-valsartan 26 mg 0.5 tab PO BID heart 02/21/24 07/02/24 History tablet (Entresto) ascorbic acid (vitamin C) 500 mg 500 mg PO 1000 30 days #30 tabs 03/13/24 07/02/24 Rx tablet clopidogrel 75 mg tablet 75 mg PO DAILY #0 tabs 03/13/24 07/02/24 Rx prochlorperazine maleate 5 mg 10 mg (2 x 5 mg) PO Q4H PRN PRN 03/13/24 07/02/24 Rx tablet Nausea/Vomiting 30 days #120 tabs dicyclomine 10 mg capsule 20 mg (2 x 10 mg) PO TIDAC 90 days 05/23/24 07/02/24 Rx #540 caps acetaminophen 500 mg tablet 500 mg PO Q6H PRN PRN Pain Score 06/13/24 07/01/24 History 1-10 baclofen 5 mg tablet 5 mg PO .QID muscle spasms 06/13/24 07/02/24 History cyanocobalamin (vitamin B-12) 500 500 mcg PO DAILY 06/13/24 07/02/24 History mcg tablet docusate sodium 100 mg capsule 100 mg PO DAILY PRN constipation 06/13/24 07/02/24 History empagliflozin 10 mg tablet 5 mg PO BID diabetes 06/13/24 07/02/24 History (Jardiance) furosemide 20 mg tablet 20 mg PO QDAY PRN for 2lb weight 06/13/24 06/19/24 History gain loratadine 10 mg tablet (Claritin) 10 mg PO DAILY 06/13/24 07/02/24 History melatonin 10 mg tablet 5 mg PO HS 06/13/24 06/19/24 History multivitamin 2 tab PO DAILY 06/13/24 07/02/24 History oxybutynin chloride 5 mg 5 mg PO Q OTHER DAY bladder 06/13/24 07/02/24 History tablet,extended release 24 hr amoxicillin 875 mg-potassium 1 tab PO BID 7 days #14 tabs 06/28/24 07/02/24 Rx clavulanate 125 mg tablet Allergy/AdvReac Type Severity Reaction Status Date / Time No Known Allergies Allergy Verified 02/21/24 14:04 Family History Father Heart disease Myocardial infarction Mother Anxiety and depression Suicide and self-inflicted injury from suicide age 52. Surgical History Presence of stent in coronary artery History of bilateral cataract extraction History of skin surgery S/P colon polypectomy History of cardiac defibrillator placement History of cholecystectomy History of coronary artery stent placement Social History household members: spouse Smoking Status: Former smoker how long ago did patient quit smokin-1.5 ppd from teen until quit in 2008. alcohol intake: never substance use type: does not use ROS Constitutional Constitutional: Reports anorexia; Denies change in weight, chills, fatigue, fever(s), malaise, night sweats, weakness or other Eyes Eyes: Denies blurry vision, change in eye color, change in vision, discharge from eye(s), double vision, erythema, eye pain, loss of vision or other ENT HEENT: Denies abnormal hearing, dysphagia, ear pain, epistaxis, headache(s), hearing loss, nasal congestion, nasal discharge, post nasal drip, sinus pressure, sore throat or other Cardiovascular Cardiovascular: Denies chest pain, claudication, dyspnea on exertion, edema, lightheadedness, orthopnea, palpitations, paroxysmal nocturnal dyspnea, rapid heart rate, syncope or other Respiratory/Chest Respiratory/Chest: Denies cough, dyspnea, excessive phlegm production, hemoptysis, productive cough, shortness of breath at rest, shortness of breath with exertion, wheezing or other Gastrointestinal Gastrointestinal: Reports abdominal pain, diarrhea, hematochezia and loose stools; Denies coffee ground emesis, constipation, dyspepsia, hematemesis, melena, nausea, vomiting or other Genitourinary Genitourinary: Denies burning urination, difficulty urinating, dysuria, hematuria, nocturia, urinary frequency, urinary hesitancy, urinary incontinence, urinary urgency or other Musculoskeletal Musculoskeletal: Denies arthralgias, back pain, joint pain, joint stiffness, joint swelling, myalgias, neck pain or other Neurologic Neurologic: Denies abnormal gait, abnormal speech, confusion, disequilibrium, dizziness, focal weakness, headache(s), numbness, paresthesias, seizure-like activity, seizures, syncope, tingling, tremor(s) or other Psychiatric Psychiatric: Reports anxiety and depression; Denies homicidal ideation, suicidal ideation or other Endocrine Endocrinology: Denies change in body appearance, cold intolerance, excessive sweating, heat intolerance, polydipsia, polyuria or other Hematologic/Lymphatic Hematologic/Lymphatic: Reports anemia and easy bruising; Denies easy bleeding, lymphadenopathy or other Allergic/Immunologic Allergic/Immunologic: Denies rhinitis, hives, eczemia, asthma or other Physical Exam Narrative General: Alert, oriented HEENT: Atraumatic, normocephalic Eyes: Anicteric, normal conjunctiva, extraocular movements grossly intact Neck: Supple Respiratory: Clear to auscultation bilaterally, normal respiratory effort Cardiovascular: Regular rate and rhythm GI: Soft, nondistended, no rebound, guarding, rigidity Extremities: No edema Musculoskeletal: Moving all extremities Neuro: No overt focal neurological deficits Skin: No rashes appreciated Psych: Cooperative Lab / Micro Data 07/04/24 14:00 07/04/24 07:41 Labs: Laboratory Results - last 24 hr 07/03/24 21:37: Hgb 9.8 L, Hct 30.8 L 07/03/24 23:57: POC Glucose 76 07/04/24 02:27: Hgb 9.6 L, Hct 30.4 L 07/04/24 05:45: POC Glucose 83 07/04/24 07:40: WBC 4.4, RBC 3.17 L, Hgb 9.5 L, Hct 29.7 L, MCV 93.7, MCH 30.0, MCHC 32.0, RDW Std Deviation 46.1 H, RDW Coeff of Edita 13.4, Plt Count 181, MPV 9.7, Immature Gran % (Auto) 0.700, Neut % (Auto) 41.2 L, Lymph % (Auto) 45.3 H, Potter % (Auto) 8.3, Eos % (Auto) 3.8, Baso % (Auto) 0.7, Absolute Neuts (auto) 1.8 L, Absolute Lymphs (auto) 2.01, Nucleated RBC % 0 07/04/24 07:41: Sodium 140, Potassium 3.7, Chloride 112 H, Carbon Dioxide 25.0, Anion Gap 3 L, BUN 10, Creatinine 0.91, Estim Creat Clear Calc 56.13, Est GFR (MDRD) Af Amer 78, Est GFR (MDRD) Non-Af 65, BUN/Creatinine Ratio 11.0, Glucose 93, Calcium 8.4 L, Phosphorus 3.4, Magnesium 1.9, Total Bilirubin 0.20, AST 26, ALT 23, Alkaline Phosphatase 37 L, Total Protein 5.9 L, Albumin 2.5 L, Globulin 3.4, Albumin/Globulin Ratio 0.7 L 07/04/24 12:09: POC Glucose 98 07/04/24 14:00: Hgb 9.7 L, Hct 30.3 L 07/04/24 16:04: POC Glucose 82 Micro: Microbiology 07/03/24 17:29 Stool Stool Occult Blood (EDUARDO) - Final Occult Blood Positive Imaging Radiology Impression Acute Abdomen Series 07/03/24 16:15 IMPRESSION: Negative chest and abdominal series. Electronically Signed: Iron Ferrer MD at 17:40 EDT , Assessment & Plan Assessment/Plan (1) Ischemic colitis: (2) Anemia: (3) Acute lower gastrointestinal bleeding: (4) Colitis: PLAN: Plan 69-year-old with diabetes, CKD, CHF, CVA on aspirin, Entresto presents with lower GI bleeding. Acute lower GI bleed -Patient with colonoscopy on 02/2024 with pathology positive for ischemic colitis -Highly suspect recurrent ischemic colitis -Patient with multiple risk factors to predispose her to ischemic colitis -Plan is for colonoscopy tomorrow--> prep ordered and this was discussed with patient -Continue aspirin but hold Plavix p Acute on chronic anemia -Hemoglobin 5 days ago was 11.9 and now down to 10.9 -Continue aspirin but hold Plavix Charges/Coding Visit Charges Inpatient E&M: 57374 Init Hosp L3
--- NOTE | 2024-07-04 18:03 | PCM.POST.ANE ---
Anesthesia: Postop Eval I Current Vital Signs Temperature: 98.3 F Pulse Rate: 60 Blood Pressure: 91/48 Respiratory Rate: 12 Pulse Ox: 98 Oxygen Delivery Method: Room Air Assessment Airway patent: Yes Spontaneous unlabored respirations: Yes Mental status: Awake and Calm nausea: No Vomiting: No Anesthesia Complication: No Fluid Hydration Crystalloid volume administer (ml): 500 Total IV fluid infused: 500 Progress Note Anesthesia document: Postop Eval 1 completed: Yes
[2024-07-04 19:07] LABS: Bedside Glucose 66 mg/dL (74-106)
[2024-07-04 20:16] LABS: LDH 232 U/L (84-246)
[2024-07-04 20:19] LABS: Lactic Acid 0.6 mmol/L (0.4-1.9)
[2024-07-04] MEDS: clonazePAM 1 MG Tablet PO (22:05)
[2024-07-04] MEDS: traZODone 50 MG Tablet PO (22:05)
[2024-07-04] MEDS: Atorvastatin Calcium 40 MG Tablet PO (22:06)
[2024-07-04] MEDS: 0.9% Saline Lock 10 ML Syringe IV (22:11)
[2024-07-04 22:37] LABS: Bedside Glucose 147 mg/dL (74-106)
[2024-07-05 05:07] VITALS: BMI 20.9
[2024-07-05] MEDS: Dicyclomine 10 MG Capsule 20 MG PO ×2 (06:12→11:10)
[2024-07-05 06:20] VITALS: BP 121/47; PULSE 59; RESP 16; TEMP 36.6; O2SAT 99
[2024-07-05 06:36] LABS: Bedside Glucose 92 mg/dL (74-106)
[2024-07-05 06:44] LABS: Hematocrit 29.1 % (37-47); Hemoglobin 9.4 g/dL (12.0-15.0); Mean Corp Hgb Conc 32.3 g/dL (32-36); Mean Corpuscular Hgb 29.6 pg (27.0-32.0); Mean Corpuscular Volume 91.5 fL (81-99); Mean Platelet Vol. 10.2 fl (6.2-12.0); Platelet Count 205 K/mm3 (150-450); RBC Distribution Width CV 13.2 % (11.6-14.6); RBC Distribution Width SD 44.7 fl (35.1-43.9); Red Blood Count 3.18 M/mm3 (4.2-5.4); White Blood Count 4.8 K/mm3 (4.4-11.0)
[2024-07-05 06:58] LABS: Anion Gap 6 (5-15); BUN 7 mg/dL (7-18); BUN/Creat Ratio 8.8 RATIO (10-20); Calcium,Total 8.8 mg/dL (8.5-10.1); Chloride 112 mmol/L (98-107); Creatinine, Serum 0.79 mg/dL (0.55-1.02); EST Glomerular Filtration Rate 76 mL/min (>60); Est Glom Filt Rate - Afr Amer 92 mL/min (>60); Estimated Creatinine Clearance 64.05 ml/min; Glucose 100 mg/dL (74-106); Potassium 3.8 mmol/L (3.5-5.1); Sodium Level 144 mmol/L (136-145)
[2024-07-05] MEDS: Baclofen 10 MG Tablet 5 MG PO ×2 (08:16→14:04)
[2024-07-05] MEDS: Escitalopram Oxalate 10 MG Tablet PO (08:17)
[2024-07-05] MEDS: Pantoprazole Sodium 40 MG Tablet PO (08:17)
[2024-07-05] MEDS: oxyCODONE 5 MG Tablet PO (08:18)
[2024-07-05 08:31] VITALS: BP 118/83; PULSE 88; RESP 16; TEMP 36.4; O2SAT 94
--- NOTE | 2024-07-05 10:05 | POSTOPAN2_ITS ---
Anesthesia Postop Eval I Sum Postop Eval Completion status Anesthesia document: Postop Eval 1 completed: Yes Anesthesia Postop Eval I Summary Anesthesia Postop Eval I Summary: Anesthesia Postop Eval I: Assessment Summary Airway patent Yes 07/04/24 18:03 PARKING METER [email or web address].[email or web address] Spontaneous unlabored Yes 07/04/24 18:03 PARKING METER ATTENDANT.[email or web address] respirations Mental status Awake,Calm 07/04/24 18:03 PARKING METER ATTENDANT.[email or web address] nausea No 07/04/24 18:03 PARKING METER ATTENDANT.[email or web address] Vomiting No 07/04/24 18:03 PARKING METER ATTENDANT.[email or web address] Anesthesia Postop Eval I: Fluid Summary Crystalloid volume administer 500 07/04/24 18:03 PARKING METER ATTENDANT.[email or web address] (ml) Colloids volume administered ( ml) Blood Product volume administered (ml) Total IV fluid infused 500 07/04/24 18:03 PARKING METER ATTENDANT.[email or web address] Anesthesia Postop Eval I: Summary Notes Anesthesia Complication No 07/04/24 18:03 PARKING METER ATTENDANT.[email or web address] Anesthesia Complication Comment: Post-operative progress note Anesthesia: Postop Eval II Evaluation Mental status: Awake Pain Level: 0 nausea: No Vomiting: No
--- NOTE | 2024-07-05 10:05 | PCM.POSTANE2 ---
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 FOOD SERVICE SUPERVISOR.[email or web address] Spontaneous unlabored Yes 07/04/24 18:03 MOTEL FOOD SERVICE SUPERVISOR.[email or web address] respirations Mental status Awake,Calm 07/04/24 18:03 MOTEL FOOD SERVICE SUPERVISOR.[email or web address] nausea No 07/04/24 18:03 MOTEL FOOD SERVICE SUPERVISOR.[email or web address] Vomiting No 07/04/24 18:03 MOTEL FOOD SERVICE SUPERVISOR.[email or web address] Anesthesia Postop Eval I: Fluid Summary Crystalloid volume administer 500 07/04/24 18:03 MOTEL FOOD SERVICE SUPERVISOR.[email or web address] (ml) Colloids volume administered ( ml) Blood Product volume administered (ml) Total IV fluid infused 500 07/04/24 18:03 MOTEL FOOD SERVICE SUPERVISOR.[email or web address] Anesthesia Postop Eval I: Summary Notes Anesthesia Complication No 07/04/24 18:03 MOTEL FOOD SERVICE SUPERVISOR.[email or web address] Anesthesia Complication Comment: Post-operative progress note Anesthesia: Postop Eval II Evaluation Mental status: Awake Pain Level: 0 nausea: No Vomiting: No
[2024-07-05 11:10] LABS: Anti-Centromere B Ab <0.2 AI (0.0-0.9); Anti-Chromatin <0.2 AI (0.0-0.9); Anti-Jo <0.2 AI (0.0-0.9); Anti-Scleroderma-70 AB <0.2 AI (0.0-0.9); Anti-dsDNA Ab 27 IU/mL (0-9); RNP Ab 0.2 AI (0.0-0.9); SJOGREN'S Anti-SS-A test < 0.2 AI (0.0-0.9); SJOGREN'S Anti-SS-B test < 0.2 AI (0.0-0.9); Smith Ab <0.2 AI (0.0-0.9)
[2024-07-05 11:24] VITALS: BP 94/46; PULSE 71; RESP 16; TEMP 36.8; O2SAT 100
[2024-07-05 11:30] LABS: Bedside Glucose 155 mg/dL (74-106)
--- NOTE | 2024-07-05 11:57 | OP.COLON_ITS ---
Patient Name: Mansi Espino Procedure Date: 07/04/2024 5:19 PM Date of : 1955 Age: 69 Procedure: Colonoscopy Indications: Hematochezia Providers: Shan Lockett DO Patient Profile: This is a 69 year old female. Refer to note in patient chart for documentation of history and physical. Last Colonoscopy: 1 year ago. Complications: No immediate complications. Procedure: Pre-Anesthesia Assessment: - Prior to the procedure, a History and Physical was performed, and patient medications and allergies were reviewed. The patient is competent. The risks and benefits of the procedure and the sedation options and risks were discussed with the patient. All questions were answered and informed consent was obtained. Patient identification and proposed procedure were verified by the physician in the pre-procedure area. Mental Status Examination: alert and oriented. Airway Examination: normal oropharyngeal airway and neck mobility. Respiratory Examination: clear to auscultation. CV Examination: normal. Prophylactic Antibiotics: The patient does not require prophylactic antibiotics. Prior Anticoagulants: The patient has taken no anticoagulant or antiplatelet agents. ASA Grade Assessment: IV - A patient with severe systemic disease that is a constant threat to life. After reviewing the risks and benefits, the patient was deemed in satisfactory condition to undergo the procedure. The anesthesia plan was to use moderate sedation / analgesia (conscious sedation). Immediately prior to administration of medications, the patient was re-assessed for adequacy to receive sedatives. The heart rate, respiratory rate, oxygen saturations, blood pressure, adequacy of pulmonary ventilation, and response to care were monitored throughout the procedure. The physical status of the patient was re-assessed after the procedure. After I obtained informed consent, the scope was passed under direct vision. Throughout the procedure, the patient's blood pressure, pulse, and oxygen saturations were monitored continuously. The colonoscope was introduced through the anus and advanced to the terminal ileum. The colonoscopy was performed without difficulty. The patient tolerated the procedure well. The quality of the bowel preparation was fair. The terminal ileum, ileocecal valve, appendiceal orifice, and rectum were photographed. Scope In: 5:35:22 PM Scope Withdrawal Time 0 hours 8 minutes 29 seconds Scope Out: 5:55:29 PM Total Procedure Duration Time 0 hours 20 minutes 7 seconds Findings: The perianal and digital rectal examinations were normal. Small-mouthed diverticula were found in the recto-sigmoid colon, sigmoid colon and descending colon. Segmental mild inflammation characterized by congestion (edema), erosions, erythema and friability was found in the transverse colon, at the hepatic flexure and in the ascending colon. Biopsies were taken with a cold forceps for histology. Verification of patient identification for the specimen was done. Estimated blood loss was minimal. Coagulation for hemostasis using heater probe was successful. Impression: - Preparation of the colon was fair. - Diverticulosis in the recto-sigmoid colon, in the sigmoid colon and in the descending colon. - No specimens collected. Recommendation: - Discharge patient to home. - Resume previous diet. - Continue present medications. - Await pathology results. - Repeat colonoscopy in 5 years for surveillance. Procedure Code(s): --- Professional --- 23677, Colonoscopy, flexible; with biopsy, single or multiple 23739, 59, Moderate sedation services provided by the same physician or other qualified health hospice care consultant performing the diagnostic or therapeutic service that the sedation supports, requiring the presence of an independent trained observer to assist in the monitoring of the patient's level of consciousness and physiological status; initial 15 minutes of intraservice time, patient age 5 years or older CPT copyright 2021 [employer]. All rights reserved. The codes documented in this report are preliminary and upon machine spring former review may be revised to meet current compliance requirements. Shan Lockett DO 07/05/2024 11:56:50 AM This report has been signed electronically. Number of Addenda: 0 Note Initiated On: 07/04/2024 5:19 PM
--- NOTE | 2024-07-05 11:57 | OP.CCLET_ITS ---
07/06/2024 Marci Nuñez Do Re : Colonoscopy procedure for Mansi Espino Dear Dr. Nuñez This procedure was performed on Thursday, July 04, 2024. My impressions and recommendations are as follows: Impressions : - Preparation of the colon was fair. - Diverticulosis in the recto-sigmoid colon, in the sigmoid colon and in the descending colon. - No specimens collected. Recommendations : - Discharge patient to home. - Resume previous diet. - Continue present medications. - Await pathology results. - Repeat colonoscopy in 5 years for surveillance. My findings are described in the full procedure note, which is enclosed. If I can be of further assistance, please feel free to contact me at . Sincerely, Shan Lockett, 07/05/2024 11:56:50 AM This report has been signed electronically.
--- NOTE | 2024-07-05 12:54 | CT_ITS ---
INDICATION: ischemic colitis EXAMINATION: CTA abdomen and pelvis - TECHNIQUE: Routine abdominal CT angiogram protocol was performed with IV contrast. MIP images provided. The protocol utilizes one or more of the following dose reduction techniques: automated exposure control, adjustment of mA and/or kV according to patient size,and/or use of iterative reconstruction technique. IV Contrast dosage and agent: 75 cc of Isovue-370 RADIATION DOSAGE (If Supplied By Facility): CTDIvol = ( 9.48 ) mGy, DLP = ( 267.54 ) mGycm COMPARISON: Prior study dated: 06/28/2024 FINDINGS: Lung bases: Atelectatic changes in the right lower lung. Normal heart size. Liver: Diffuse hepatic steatosis suboptimally evaluated due to arterial phase of scanning. No definite focal lesion is seen. Gallbladder: Status post cholecystectomy. Spleen: Normal in size Adrenal gland: No adrenal nodules. Kidneys: Simple bilateral renal cysts larger on the left side unchanged. No further follow-up exam is needed. No evidence of hydronephrosis. Pancreas:Unremarkable. GI tract: Nonspecific fluid-filled small bowel loops. No evidence of bowel obstruction. Diverticulosis without evidence of acute diverticulitis. Unremarkable appendix. Mild thickening of short segment of the ascending colon concerning for residual colitis improved since the previous examination. Unremarkable appendix. Peritoneum/retroperitoneum: No evidence of free air or free fluid. Pelvis: Pelvic organs: No mass lesion noted. Bone survey: No aggressive bony lesions. No acute fractures. Adenopathy: No significant pathologic adenopathy detected. Vascular: Atherosclerotic calcifications of the abdominal aorta without evidence of aneurysm. Unremarkable celiac axis. Calcifications of the origin of the SMA. 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 The peripheral branches appear to be patent. Mild calcifications at the origin of the bilateral renal arteries with mild stenosis. Unremarkable POLLO. Atherosclerotic calcifications of the common iliac arteries. CT/CTA Abd/Pelvis W/WO Contrast IMPRESSION: 1. 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 2. Thickening of the ascending colon/colitis improved since the previous examination. 3. Additional nonacute findings unchanged. Electronically Signed: Bo Quintanilla MD at 14:16 EDT ,
[2024-07-05] MEDS: 0.9% Normal Saline (1000mL) 1,000 ML 75 ML IV (14:04)
[2024-07-05 15:18] VITALS: BP 121/70; PULSE 60; RESP 16; TEMP 36.8; O2SAT 100
--- NOTE | 2024-07-05 16:13 | DCINST_ITS ---
Discharge Instructions Diet Discharge Diet: Light diet - advance as tolerated Activity Discharge Activity: Return to Normal Activity Follow Up Care Test Results: Test results from this visit will be discussed in further detail at your follow- up appointment, if applicable. Discharge Plan Admission Admit Date/Time: 07/03/24 18:47 Primary Reason for Your Visit: GI bleed Attending Provider: Anabell Simms Primary Care Provider: Marci Nuñez Consulting Providers: Miya Thomas Instructions Patient Instructions: Ischemic Colitis Additional Instructions / Restrictions: DISCHARGE INSTRUCTIONS PLEASE READ *Please take this with you to your next doctors appointment* -Recommend holding your Entresto and spironolactone given your low blood pressure unless otherwise advised by your outpatient physicians -Please continue monitoring your blood pressure and weight, if your systolic blood pressure (top number) is consistently less than 90 please contact your primary care physician for further instructions -You will need to follow-up with Dr. Lockett with GI in his office upon discharge. Please call his office to schedule your hospital follow-up appointment (ph. [phone]) -Please follow-up with Dr. Turk with vascular upon discharge. Please call their office to schedule hospital follow-up appointment upon discharge. -Please call your primary care provider's office upon discharge to schedule a hospital follow up within 1 week. -For any concerning signs or symptoms please call 911 or proceed to the nearest emergency department Discharge Orders/Prescriptions Prescriptions: Continued dicyclomine 10 mg capsule 20 mg PO TIDAC 90 Days Qty: 540 3RF furosemide 20 mg tablet 20 mg PO QDAY PRN (Reason: for 2lb weight gain) acetaminophen 500 mg tablet 500 mg PO Q6H PRN PRN (Reason: Pain Score 1-10) cyanocobalamin (vitamin B-12) 500 mcg tablet 500 mcg PO DAILY docusate sodium 100 mg capsule 100 mg PO DAILY PRN (Reason: constipation) loratadine [Claritin] 10 mg tablet 10 mg PO DAILY melatonin 10 mg tablet 5 mg PO HS multivitamin Tablet 2 tab PO DAILY trazodone 50 MG tablet 50 mg PO DAILY PRN (Reason: Anxiety) clonazepam 1 MG tablet 1 mg PO QHS metoprolol succinate 25 mg tablet extended release 24 hr 12.5 mg PO DAILY cholecalciferol (vitamin D3) 25 mcg (1,000 unit) Tablet 50 mcg PO QHS Qty: 0 0RF Jardiance 10 mg tablet 5 mg PO BID aspirin 81 mg tablet,delayed release (DR/EC) 81 mg PO .COMPLEX Rx Instructions: 81 mg orally EVERY OTHER DAY; metformin 500 mg tablet extended release 24 hr 500 mg PO DAILY rosuvastatin 20 mg tablet 20 mg PO QHS baclofen 5 mg tablet 5 mg PO .QID Patient Comments: PLEASE SEE ATTACHED FOR DETAILED DIRECTIONS oxybutynin chloride 5 mg tablet extended release 24hr 5 mg PO Q OTHER DAY ascorbic acid (vitamin C) 500 mg Tablet 500 mg PO 1000 30 Days Qty: 30 0RF clopidogrel 75 mg Tablet 75 mg PO DAILY Qty: 0 0RF prochlorperazine maleate 5 mg Tablet 10 mg PO Q4H PRN PRN (Reason: Nausea/Vomiting) 30 Days Qty: 120 0RF Held spironolactone 25 mg tablet 12.5 mg PO .COMPLEX Hold Instructions: Resume on 07/26/24. Hold unless otherwise advised by your outpatient physician Rx Instructions: 12.5 mg orally every other day; Entresto 24-26 mg tablet 0.5 tab PO BID Hold Instructions: Resume on 07/26/24. Hold unless otherwise advised by your outpatient physician Discontinued amoxicillin-pot clavulanate 875-125 mg tablet 1 tab PO BID 7 Days Qty: 14 0RF Referrals / Follow Up: Jose Turk MD [Med Staff - Active Staff] - ( -Please follow-up with Dr. Turk upon discharge. Please call their office to schedule hospital follow-up appointment upon discharge.) Marci Nuñez DO [Primary Care Provider] - Within 1 Week Shan Lockett DO [Med Staff - Active Staff] - ( -You will need to follow-up with Dr. Lockett with GI in his office upon discharge. Please call his office to schedule your hospital follow-up appointment (ph. [phone])) Disposition Disposition (needs filled in before D/C Order can be placed): Home, Self Care
--- NOTE | 2024-07-05 16:15 | PCM.DC.SUM ---
Providers Date of Admission: 07/03/24 Date of Discharge: 07/05/24 Primary Care Physician: Dr. Marci Nuñez DO Consultations 07/03/24 20:09 Consult: Gastroenterology Routine Consulting Provider: [facility] Reason for Consult: GI bleed EMERGENT Consult: No MD Notified: Yes Date Notified: 07/03/24 Time Notified: 18:52 Method of Notification: Verbal Reason For Visit: GIB Diagnosis Discharge Diagnosis (1) Ischemic colitis: Status: Acute Code(s): K55.9 - Vascular disorder of intestine, unspecified (2) Anemia: Status: Acute Code(s): D64.9 - Anemia, unspecified (3) Acute lower gastrointestinal bleeding: Status: Acute Code(s): K92.2 - Gastrointestinal hemorrhage, unspecified (4) Colitis: Status: Acute Code(s): K52.9 - Noninfective gastroenteritis and colitis, unspecified Plan #Acute on chronic anemia secondary to lower GI bleed in setting of history of ischemic colitis #CAD/HTN/HPL/ischemic cardiomyopathy w/ ICD with chronic HFrEF #DM-2 #History of stroke #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 #Diabetic retinopathy #Chronic pain #Urinary incontinence #Anxiety/depression Medications at Discharge Home Medications clonazepam 1 mg tablet 1 mg PO QHS anxiety 11/18/14 trazodone 50 mg tablet 50 mg PO DAILY PRN Anxiety 11/18/14 metoprolol succinate 25 mg tablet,extended release 24 hr 12.5 mg PO DAILY blood pressure 09/28/23 cholecalciferol (vitamin D3) 25 mcg (1,000 unit) tablet 50 mcg (2 x 25 mcg (1,000 unit)) PO QHS supplement #0 tabs 09/30/23 aspirin 81 mg tablet,delayed release 81 mg PO .COMPLEX heart 10/01/23 spironolactone 25 mg tablet 12.5 mg PO .COMPLEX FLUID 10/07/23 metformin 500 mg tablet,extended release 24 hr 500 mg PO DAILY blood sugars 02/21/24 rosuvastatin 20 mg tablet 20 mg PO QHS cholesterol 02/21/24 sacubitril 24 mg-valsartan 26 mg tablet (Entresto) 0.5 tab PO BID heart 02/21/24 ascorbic acid (vitamin C) 500 mg tablet 500 mg PO 1000 30 days #30 tabs 03/13/24 clopidogrel 75 mg tablet 75 mg PO DAILY #0 tabs 03/13/24 prochlorperazine maleate 5 mg tablet 10 mg (2 x 5 mg) PO Q4H PRN PRN Nausea/Vomiting 30 days #120 tabs 03/13/24 dicyclomine 10 mg capsule 20 mg (2 x 10 mg) PO TIDAC 90 days #540 caps 05/23/24 acetaminophen 500 mg tablet 500 mg PO Q6H PRN PRN Pain Score 1-10 06/13/24 baclofen 5 mg tablet 5 mg PO .QID muscle spasms 06/13/24 cyanocobalamin (vitamin B-12) 500 mcg tablet 500 mcg PO DAILY 06/13/24 docusate sodium 100 mg capsule 100 mg PO DAILY PRN constipation 06/13/24 empagliflozin 10 mg tablet (Jardiance) 5 mg PO BID diabetes 06/13/24 furosemide 20 mg tablet 20 mg PO QDAY PRN for 2lb weight gain 06/13/24 loratadine 10 mg tablet (Claritin) 10 mg PO DAILY 06/13/24 melatonin 10 mg tablet 5 mg PO HS 06/13/24 multivitamin 2 tab PO DAILY 06/13/24 oxybutynin chloride 5 mg tablet,extended release 24 hr 5 mg PO Q OTHER DAY bladder 06/13/24 Hospital Course Procedures Colonoscopy Summary of Care Provided Minutes Spent on Discharge: 32 Hospital Course: Pt is a 69 y/o F hx of ischemic colitis, CAD, hx chronic HFrEF w/ recovered EF, DMII, CVA, CKD, anxiety who presented to [facility] ED 07/03/2024 with bright red blood per rectum. It was similar episode to February 2024 at which time she do colonoscopy and was diagnosed with ischemic colitis. Given patient's symptoms and pain there was high suspicion for recurrent ischemic colitis so she was admitted and GI consulted. Patient had colonoscopy which did demonstrate changes concerning for ischemic colitis which was biopsied and multiple labs ordered. Discussed with GI and CTA of the abdomen ordered. CTA showed focal area of severe stenosis or absence of proximal SMA just distal to its origin but patent distal to that area of stenosis and patient had improving colitis. Discussed with vascular and images reviewed, patient to follow-up with vascular outpatient as well as GI. Did note the patient tends to have low blood pressure, discussed with and systolic blood pressure is often in the 90s with the highest being 110. Low blood pressure may be contributing to her recurrent ischemic colitis, discussed her blood pressure medicines and findings on CT and recommendations and patient and verbalized their understanding and are comfortable with the plan. Patient overall feels better than she did prior to admission, tolerating diet at this time. Discharge instructions as follows: -Recommend holding your Entresto and spironolactone given your low blood pressure unless otherwise advised by your outpatient physicians -Please continue monitoring your blood pressure and weight, if your systolic blood pressure (top number) is consistently less than 90 please contact your primary care physician for further instructions -You will need to follow-up with Dr. Lockett with GI in his office upon discharge. Please call his office to schedule your hospital follow-up appointment (ph. [phone]) -Please follow-up with Dr. Turk with vascular upon discharge. Please call their office to schedule hospital follow-up appointment upon discharge. -Please call your primary care provider's office upon discharge to schedule a hospital follow up within 1 week. -For any concerning signs or symptoms please call 911 or proceed to the nearest emergency department Physical Exam Narrative General: Alert, oriented HEENT: Atraumatic, normocephalic Eyes: Anicteric, normal conjunctiva, extraocular movements grossly intact Neck: Supple Respiratory: normal respiratory effort Cardiovascular: Regular rate GI: Soft, nondistended, no rebound, guarding, rigidity Extremities: No edema Musculoskeletal: Moving all extremities Neuro: No overt focal neurological deficits Skin: No rashes appreciated Psych: Cooperative Weight / BMI Weight Weight: 62.9 kg Body Mass Index (BMI) 20.9 ABG / Lab / Microbiology Data 07/05/24 06:02 07/05/24 06:02 Laboratory: Laboratory Results - last 24 hr 07/03/24 16:35: REMY-1 Antibody <0.2, SS-A/Ro IgG Antibody < 0.2, SS-B/La IgG Antibody < 0.2, Sm (Gill) Antibody <0.2, MEAT STOCKER Antibody 0.2, Scl-70 Scleroderma Ab <0.2, Double Strand DNA Ab 27 H, Antichromatin Antibodies <0.2, Centromere B Antibody <0.2 07/04/24 16:04: POC Glucose 82 07/04/24 18:47: POC Glucose 66 L 07/04/24 19:24: Lactic Acid 0.6, Lactate Dehydrogenase 232 07/04/24 22:09: POC Glucose 147 H 07/05/24 06:02: WBC 4.8, RBC 3.18 L, Hgb 9.4 L, Hct 29.1 L, MCV 91.5, MCH 29.6, MCHC 32.3, RDW Std Deviation 44.7 H, RDW Coeff of Edita 13.2, Plt Count 205, MPV 10.2, Sodium 144, Potassium 3.8, Chloride 112 H, Carbon Dioxide 26.0, Anion Gap 6, BUN 7, Creatinine 0.79, Estim Creat Clear Calc 64.05, Est GFR (MDRD) Af Amer 92, Est GFR (MDRD) Non-Af 76, BUN/Creatinine Ratio 8.8 L, Glucose 100, Calcium 8.8 07/05/24 06:14: POC Glucose 92 07/05/24 11:09: POC Glucose 155 H Microbiology: Microbiology 07/03/24 17:29 Stool Stool Occult Blood (EDUARDO) - Final Occult Blood Positive Radiography Diagnostic Testing: Radiology Impression Abdomen/Pelvis CTA 07/05/24 12:54 IMPRESSION: 1. 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 2. Thickening of the ascending colon/colitis improved since the previous examination. 3. Additional nonacute findings unchanged. Electronically Signed: Bo Quintanilla MD at 14:16 EDT , D/C Instructions Discharge Diet: Light diet - advance as tolerated Meaningful Use Info Meaningful Use Meaningful Use Diagnoses (Choose all that apply): None applicable Ischemic Stroke Statin Dosing Therapy Reference: STATIN DOSE THERAPY REFERENCE: * Patients > 75 years receive moderate or high dose statin therapy. * Patients 75 years or YOUNGER should receive HIGH intensity statin dose unless contraindicated. You will be required to document reason for non-treatment if statin daily dose does not meet guidelines. HIGH DOSE STATIN THERAPY DAILY Atorvastatin > than or = to 40 mg Rosuvastatin > than or = to 20 mg Amlodipine + Atorvastatin > than or = to 2.5/40 mg Ezetimibe + Simvastatin 10/80 mg Simvastatin 80mg Discharge Plan Admission Admit Date/Time: 07/03/24 18:47 Primary Reason for Your Visit: GI bleed Attending Provider: Anabell Simms Primary Care Provider: Marci Nuñez Consulting Providers: Miya Thomas Instructions Patient Instructions: Ischemic Colitis Additional Instructions / Restrictions: DISCHARGE INSTRUCTIONS PLEASE READ *Please take this with you to your next doctors appointment* -Recommend holding your Entresto and spironolactone given your low blood pressure unless otherwise advised by your outpatient physicians -Please continue monitoring your blood pressure and weight, if your systolic blood pressure (top number) is consistently less than 90 please contact your primary care physician for further instructions -You will need to follow-up with Dr. Lockett with GI in his office upon discharge. Please call his office to schedule your hospital follow-up appointment (ph. [phone]) -Please follow-up with Dr. Turk with vascular upon discharge. Please call their office to schedule hospital follow-up appointment upon discharge. -Please call your primary care provider's office upon discharge to schedule a hospital follow up within 1 week. -For any concerning signs or symptoms please call 911 or proceed to the nearest emergency department Discharge Orders/Prescriptions Prescriptions: Continued dicyclomine 10 mg capsule 20 mg PO TIDAC 90 Days Qty: 540 3RF furosemide 20 mg tablet 20 mg PO QDAY PRN (Reason: for 2lb weight gain) acetaminophen 500 mg tablet 500 mg PO Q6H PRN PRN (Reason: Pain Score 1-10) cyanocobalamin (vitamin B-12) 500 mcg tablet 500 mcg PO DAILY docusate sodium 100 mg capsule 100 mg PO DAILY PRN (Reason: constipation) loratadine [Claritin] 10 mg tablet 10 mg PO DAILY melatonin 10 mg tablet 5 mg PO HS multivitamin Tablet 2 tab PO DAILY trazodone 50 MG tablet 50 mg PO DAILY PRN (Reason: Anxiety) clonazepam 1 MG tablet 1 mg PO QHS metoprolol succinate 25 mg tablet extended release 24 hr 12.5 mg PO DAILY cholecalciferol (vitamin D3) 25 mcg (1,000 unit) Tablet 50 mcg PO QHS Qty: 0 0RF Jardiance 10 mg tablet 5 mg PO BID aspirin 81 mg tablet,delayed release (DR/EC) 81 mg PO .COMPLEX Rx Instructions: 81 mg orally EVERY OTHER DAY; metformin 500 mg tablet extended release 24 hr 500 mg PO DAILY rosuvastatin 20 mg tablet 20 mg PO QHS baclofen 5 mg tablet 5 mg PO .QID Patient Comments: PLEASE SEE ATTACHED FOR DETAILED DIRECTIONS oxybutynin chloride 5 mg tablet extended release 24hr 5 mg PO Q OTHER DAY ascorbic acid (vitamin C) 500 mg Tablet 500 mg PO 1000 30 Days Qty: 30 0RF clopidogrel 75 mg Tablet 75 mg PO DAILY Qty: 0 0RF prochlorperazine maleate 5 mg Tablet 10 mg PO Q4H PRN PRN (Reason: Nausea/Vomiting) 30 Days Qty: 120 0RF Held spironolactone 25 mg tablet 12.5 mg PO .COMPLEX Hold Instructions: Resume on 07/26/24. Hold unless otherwise advised by your outpatient physician Rx Instructions: 12.5 mg orally every other day; Entresto 24-26 mg tablet 0.5 tab PO BID Hold Instructions: Resume on 07/26/24. Hold unless otherwise advised by your outpatient physician Discontinued amoxicillin-pot clavulanate 875-125 mg tablet 1 tab PO BID 7 Days Qty: 14 0RF Referrals / Follow Up: Jose Turk MD [Med Staff - Active Staff] - ( -Please follow-up with Dr. Turk upon discharge. Please call their office to schedule hospital follow-up appointment upon discharge.) Marci Nuñez DO [Primary Care Provider] - Within 1 Week Shan Lockett DO [Med Staff - Active Staff] - ( -You will need to follow-up with Dr. Lockett with GI in his office upon discharge. Please call his office to schedule your hospital follow-up appointment (ph. [phone])) Disposition Disposition (needs filled in before D/C Order can be placed): Home, Self Care Charges/Coding Visit Charges Inpatient E&M: 18703 Disch Hosp >30min
[2024-07-07 07:09] LABS: Dilute Prothrombin Time (dPT) 35.7 sec (0.0-47.6); Dilute Russell Viper Venom 37.8 sec (0.0-47.0); Hexagonal Phase Phospholipid 2 4 sec (0-11); Interpretation Comment: (.); PTT-LA 46.4 sec (0.0-43.5); PTT-LA Mix 42.3 sec (0.0-40.5); Thrombin Time 17.3 sec (0.0-23.0); dPT Confirm Ratio 1.05 Ratio (0.00-1.34)
[2024-07-07 13:42] LABS: ACCA 18 units (0-90); ALCA 7 units (0-60); AMCA 34 units (0-100); Albumin 3.2 g/dL (2.9-4.4); Alpha-1-Globulins 0.4 g/dL (0.0-0.4); Cytoplasmic Ab (C-ANCA) <1:20 titer (Neg:<1:20); Endomysial Antibody IgA Negative (Negative); Gamma Globulin 1.1 g/dL (0.4-1.8); Immunoglobulin A 204 mg/dL (64-422); Immunoglobulin G 1094 mg/dL (586-1602); Immunoglobulin M 53 mg/dL (26-217); PROEL- TOTAL PROTEIN 6.4 g/dL (6.0-8.5); Perinuclear Ab (P-ANCA) <1:20 titer (Neg:<1:20); gASCA 28 units (0-50); t-Transglutaminase IgA <2 U/mL (0-3)
[2024-07-13 17:07] LABS: Albumin 3.1 g/dL (2.9-4.4); Alpha-1-Globulins 0.3 g/dL (0.0-0.4); Anti-Cardiolipin Ab, IgG, Qn < 9 GPL U/mL (0-14); Anti-Cardiolipin Ab, IgM, Qn < 9 MPL U/mL (0-12); Anti-Thrombin 3 AG, Immunol 65 % (72-124); Antithrombin 3 Function 89 % (75-135); Beta-2-Glycoprotein I IgA <9 (0-25); Beta-2-Glycoprotein I IgG <9 (0-20); Beta-2-Glycoprotein I IgM <9 (0-32); Carcinoembryonic Antigen 2.3 ng/mL (0.0-4.7); Immunoglobulin A 197 mg/dL (64-422); Immunoglobulin G 1037 mg/dL (586-1602); Immunoglobulin M 52 mg/dL (26-217); PROEL- TOTAL PROTEIN 6.1 g/dL (6.0-8.5); Protein C Antigen 74 % (60-150); Protein C, Functional 89 % (73-180)
== END 2024-07-05 17:10 | disposition home or self-care (01) ==
LOC: ED 18:35 → MS3 19:05
PROVIDERS: Internal Medicine Gastroenterology; Admitting Provider Internal Medicine; Emergency Provider Emergency Medicine; PCP Family Medicine; Visit Provider Internal Medicine
PROC: 0DJD8ZZ Inspection of Lower Intestinal Tract, Via Natural or Artificial Opening Endoscopic (ICD-10-PCS; CPT 45378; principal; 2024-07-04 16:35)
DX: K55.9 Vascular disorder of intestine, unspecified (principal); I13.0 Hypertensive heart and chronic kidney disease with heart failure and stage 1 through stage 4 chronic kidney disease, or unspecified chronic kidney disease; I50.22 Chronic systolic (congestive) heart failure; G80.9 Cerebral palsy, unspecified; E11.22 Type 2 diabetes mellitus with diabetic chronic kidney disease; E11.319 Type 2 diabetes mellitus with unspecified diabetic retinopathy without macular edema; E11.51 Type 2 diabetes mellitus with diabetic peripheral angiopathy without gangrene; N18.32 Chronic kidney disease, stage 3b; K92.2 Gastrointestinal hemorrhage, unspecified; I25.10 Atherosclerotic heart disease of native coronary artery without angina pectoris; I25.5 Ischemic cardiomyopathy; Z79.84 Long term (current) use of oral 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 drugs; Z87.891 Personal history of nicotine dependence; Z79.02 Long term (current) use of antithrombotics/antiplatelets; E78.00 Pure hypercholesterolemia, unspecified; K57.30 Diverticulosis of large intestine without perforation or abscess without bleeding; D62 Acute posthemorrhagic anemia; Z79.82 Long term (current) use of aspirin; Z79.899 Other long term (current) drug therapy; R32 Unspecified urinary incontinence; F32.A Depression, unspecified; F41.9 Anxiety disorder, unspecified; I45.89 Other specified conduction disorders; K21.9 Gastro-esophageal reflux disease without esophagitis; Z95.810 Presence of automatic (implantable) cardiac defibrillator; R19.7 Diarrhea, unspecified; R91.8 Other nonspecific abnormal finding of lung field; I95.9 Hypotension, unspecified
CPT/HCPCS: 45380; 36415; 74022; 74174; 80048; 80053; 81240; 81241; 82274; 82378; 82784; 82962; 83516; 83605; 83615; 83735; 84100; 84165; 85014; 85018; 85025; 85027; 85300; 85301; 85302; 85303; 85610; 85652; 85730; 86036; 86140; 86146; 86147; 86225; 86235; 86255; 86256; 86334; 86671; 88305; 88341; 88342; 96361; 96374; 96375; 97802; 99221; 99283; J7030; J7120; Q9967; A4216; G0378; J2405

== ENCOUNTER → 2024-08-25 | Outpatient (CLI) | payer MEDICARE, SELFPAY ==
--- NOTE | 2024-08-25 07:33 | ECHOD_ITS ---
Reason For Study: CHF Procedure This was a 2D Doppler, Color Flow transthoracic echocardiogram. Exam performed in department. Left Ventricle Normal LV size. The estimated ejection fraction is 55 %. No evidence for diastolic dysfunction. No regional wall motion abnormalities noted. Right Ventricle Normal RV size. Normal systolic function. Atria The left and right atria are normal. No doppler evidence for ASD. Mitral Valve There is no mitral valve stenosis. Trivial mitral valve insufficiency. Tricuspid Valve There is no tricuspid stenosis. Trivial tricuspid valve insufficiency. Unable to estimate RV systolic pressure due to insufficient tricuspid regurgitant envelope. Aortic Valve Trisinus/trileaflet aortic valve. There is no aortic stenosis. No aortic valve insufficiency. Pulmonic Valve There is no pulmonic valvular stenosis. No pulmonic valve insufficiency. Great Vessels Normal aortic root. Pericardium/Pleural No pericardial effusion. MMode/2D Measurements & Calculations LVIDd: 5.1 cm IVSd: 0.93 cm LVOT diam: 2.1 cm LVIDs: 4.1 cm LVPWd: 0.99 cm LVOT area: 3.5 cm2 RVDd: 2.6 cm FS: 19.9 % Ao root diam: 3.3 cm LAV(MOD-bp): 35.3 ml LVAd ap4: 23.9 cm2 LAV(MOD-bp) Indexed: 20.6 ml/m2 LVLd ap4: 8.0 cm LAV(MOD-sp2): 33.5 ml EDV(MOD-sp4): 61.2 ml LAV(MOD-sp4): 37.0 ml EDV(sp4-el): 60.6 ml LVAs ap4: 14.0 cm2 LVLs ap4: 6.5 cm ESV(MOD-sp4): 26.4 ml ESV(sp4-el): 25.8 ml EF(MOD-sp4): 56.9 % EF(sp4-el): 57.5 % SV(MOD-sp4): 34.8 ml SV(sp4-el): 34.9 ml LA A4 area: 15.1 cm2 LA dimension(2D): 3.3 cm RA A4 area: 11.2 cm2 Time Measurements MV dec time: 0.27 sec Doppler Measurements & Calculations MV E max chente: 68.1 cm/sec Lat Peak E' Chente: 10.7 cm/sec Med Peak E' Chente: 6.8 cm/sec MV A max chente: 91.3 cm/sec E/E' lat: 6.4 E/E' med: 10.0 MV E/A: 0.75 MV V2 max: 85.0 cm/sec Ao V2 max: 121.6 cm/sec MV max P.9 mmHg MV dec slope: 257.6 cm/sec2 Ao max P.9 mmHg MV V2 mean: 48.9 cm/sec Ao V2 mean: 82.5 cm/sec MV mean P.1 mmHg Ao mean P.1 mmHg MV V2 VTI: 29.6 cm Ao V2 VTI: 29.9 cm AV (velocity ratio): 0.77 MVA(VTI): 2.8 cm2 APPLE(I,D): 2.7 cm2 APPLE(V,D): 2.7 cm2 LV V1 max: 93.3 cm/sec SV(LVOT): 81.5 ml PA V2 max: 67.0 cm/sec LV V1 max P.5 mmHg PA V2 mean: 45.1 cm/sec LV V1 mean P.1 mmHg LV V1 mean: 68.9 cm/sec LV V1 VTI: 23.1 cm TR max chente: 219.3 cm/sec TR max P.2 mmHg ECHO/Echo Complete Interpretation Summary The estimated ejection fraction is 55 %. No evidence for diastolic dysfunction. Trivial mitral valve insufficiency. Ordering Physician: Joo Christine Referring Physician: Joo Christine Performed By: Sheree Ramirez RCS
== END | disposition home or self-care (01) ==
LOC: CVS 07:33
PROVIDERS: PCP Family Medicine; Referring Provider Internal Medicine Cardiovascular Disease; Visit Provider Internal Medicine Cardiovascular Disease
DX: I25.10 Atherosclerotic heart disease of native coronary artery without angina pectoris (principal)
CPT/HCPCS: 93306

== ENCOUNTER 2024-09-09 13:50 | Emergency (ER) | payer MEDICARE, SELFPAY ==
[2024-09-09] VITALS (9 sets, daily range): BP systolic 122–153; BP diastolic 49–100; PULSE 60–108; RESP 16–25; TEMP 36.5–37; O2SAT 98–100; BMI 20.9
[2024-09-09 14:59] LABS: Absolute Lymphocyte Count 2.53 X10^3/uL (0.83-4.51); Absolute Neutrophil Count 3.4 X10^3/uL (2.0-7.7); Basophil# 0.02 X10^3/uL; Basophil% 0.3 % (0-1); Eosinophil# 0.05 X10^3/uL; Eosinophils% 0.8 % (0-5); Hematocrit 37.4 % (37-47); Lymphocyte # 2.53 X10^3/ul (0.83-4.51); Lymphocyte % 38.6 % (19-41); Mean Corp Hgb Conc 32.1 g/dL (32-36); Mean Corpuscular Volume 93.5 fL (81-99); Mean Platelet Vol. 10.4 fl (6.2-12.0); Monocyte# 0.56 X10^3/uL; Monocyte% 8.5 % (0-10); NRBC Flagged by Analyzer 0 % (0-5); Neutrophil # 3.38 X10^3/uL (2.7-7.7); Neutrophil % 51.6 % (47-70); Platelet Count 167 K/mm3 (150-450); RBC Distribution Width CV 13.8 % (11.6-14.6); White Blood Count 6.6 K/mm3 (4.4-11.0)
[2024-09-09 15:11] LABS: Anion Gap 5 (5-15); BUN 44 mg/dL (7-18); BUN/Creat Ratio 36.1 RATIO (10-20); Calcium,Total 9.4 mg/dL (8.5-10.1); Chloride 106 mmol/L (98-107); Creatinine, Serum 1.22 mg/dL (0.55-1.02); EST Glomerular Filtration Rate 46 mL/min (>60); Est Glom Filt Rate - Afr Amer 56 mL/min (>60); Estimated Creatinine Clearance 41.66 ml/min; Glucose 231 mg/dL (74-106); Potassium 4.8 mmol/L (3.5-5.1); Sodium Level 139 mmol/L (136-145)
--- NOTE | 2024-09-09 15:27 | EKG12_ITS ---
Test Reason : CP Blood Pressure : / mmHG Vent. Rate : 072 BPM Atrial Rate : 072 BPM P-R Int : 116 ms QRS Dur : 106 ms QT Int : 428 ms P-R-T Axes : 013 100 078 degrees QTc Int : 468 ms Atrial-sensed ventricular-paced rhythm Biventricular pacemaker detected Abnormal ECG Confirmed by Joo Christine ([id number]), avid editor VILMA DAVIDSON ([id number]) on 09/11/2024 11:30:50 AM Referred By: Jeffrey Justice Confirmed By:Joo Christine
--- NOTE | 2024-09-09 15:45 | RAD_ITS ---
INDICATION: SOB EXAMINATION/TECHNIQUE: X-RAY - XR Chest 2 Views COMPARISON: 07/03/2024 FINDINGS: LINES/DEVICES: Stable transvenous pacemaker. LUNGS: No consolidation, edema or effusion. No pneumothorax. MEDIASTINUM AND CARDIOVASCULAR STRUCTURES: Cardiac silhouette stable within normal limits. BONES AND SOFT TISSUES: No acute changes. RAD/Chest PA and Lateral IMPRESSION: No radiographic evidence of acute cardiopulmonary disease. Electronically Signed: Moisés Ortega MD at 16:22 EDT ,
--- NOTE | 2024-09-09 15:46 | EDS_ITS ---
HPI History of Present Illness Chief Complaint: Shortness of Breath Narrative Narrative: Chief complaint and HPI: Shortness of breath. 69-year-old female with history of ischemic dilated cardiomyopathy status post MARKET ANALYSIS DIRECTOR-D implant, DM, CKD, HLD, CAD, CVA with neurological deficits presents for evaluation of shortness of breath. Patient states for the past week she has been having progressive shortness of breath. She states it is worse with exertion. She also endorses chest tightness with her shortness of breath. Denies chest pain. Per patient has been taking her diuretics. She denies any significant swelling in her legs or pain in her legs. Patient denies any fever, chills, URI symptoms, cough, wheezing, abdominal pain, nausea, vomiting. Review of systems: See HPI Medications: As listed on the chart Allergies: As listed on the chart PFSH: Per chart Vital signs: As listed on the chart. Reviewed. Physical exam: Gen: A&O x3, NAD Head: Normocephalic, atraumatic Eyes: No sclera icterus, conjunctiva clear ENT: Moist mucous membranes Neck: Trachea midline, No JVD CV: RRR, no murmurs, no peripheral edema, + MARKET ANALYSIS DIRECTOR-D Resp: Lungs CTA BL, no w/r/c GI: Abd soft, non-distended, non-tender, no r/r/g Musc: Moves all extremities, no deformity Skin: Warm, dry Neuro: Alert, oriented, grossly intact, sensation intact Psych: Cooperative, appropriate mood and affect [facility] Medical History Ischemic colitis History of left heart catheterization History of mechanical ventilation Cardiogenic pulmonary edema Acute hypoxic respiratory failure Multiple lung nodules Major depressive disorder Left bundle branch block NSTEMI (non-ST elevated myocardial infarction) GERD (gastroesophageal reflux disease) Diabetic peripheral vascular disease Diabetic nephropathy Chronic kidney disease (CKD) Bleeding ulcer Anxiety Dyslipidemia Chronic systolic heart failure Pacemaker Congestive heart failure (CHF) Cerebral palsy Anxiety and depression Heart failure with reduced ejection fraction Insomnia Transient ischemic attack AV node dysfunction Ischemic cardiomyopathy Presence of biventricular implantable cardioverter-defibrillator Ulcer Restless legs High cholesterol Former smoker ICD (implantable cardioverter-defibrillator) in place Coronary artery disease CVA (cerebral vascular accident) PFO (patent foramen ovale) Cardiac resynchronization therapy defibrillator (MARKET ANALYSIS DIRECTOR-D) in place Diabetes mellitus Myocarditis Hyperlipidemia Hypertension Home Medications ?Medication ?Instructions ?Recorded ?Last Taken ?Type clonazepam 1 mg tablet 1 mg PO QHS anxiety 11/18/14 07/02/24 History trazodone 50 mg tablet 50 mg PO DAILY PRN Anxiety 11/18/14 07/02/24 History metoprolol succinate 25 mg 12.5 mg PO DAILY blood pressure 09/28/23 07/02/24 History tablet,extended release 24 hr cholecalciferol (vitamin D3) 25 50 mcg (2 x 25 mcg (1,000 unit)) 09/30/23 07/02/24 Rx mcg (1,000 unit) tablet PO QHS supplement #0 tabs aspirin 81 mg tablet,delayed 81 mg PO .COMPLEX heart 10/01/23 07/02/24 History release spironolactone 25 mg tablet 12.5 mg PO .COMPLEX FLUID 10/07/23 07/02/24 History metformin 500 mg tablet,extended 500 mg PO DAILY blood sugars 02/21/24 07/02/24 History release 24 hr rosuvastatin 20 mg tablet 20 mg PO QHS cholesterol 02/21/24 07/02/24 History sacubitril 24 mg-valsartan 26 mg 0.5 tab PO BID heart 02/21/24 07/02/24 History tablet (Entresto) clopidogrel 75 mg tablet 75 mg PO DAILY #0 tabs 03/13/24 07/02/24 Rx prochlorperazine maleate 5 mg 10 mg (2 x 5 mg) PO Q4H PRN PRN 03/13/24 07/02/24 Rx tablet Nausea/Vomiting 30 days #120 tabs dicyclomine 10 mg capsule 20 mg (2 x 10 mg) PO TIDAC 90 days 05/23/24 07/02/24 Rx #540 caps acetaminophen 500 mg tablet 500 mg PO Q6H PRN PRN Pain Score 06/13/24 07/01/24 History 1-10 cyanocobalamin (vitamin B-12) 500 500 mcg PO DAILY 06/13/24 07/02/24 History mcg tablet docusate sodium 100 mg capsule 100 mg PO DAILY PRN constipation 06/13/24 07/02/24 History furosemide 20 mg tablet 20 mg PO QDAY PRN for 2lb weight 06/13/24 06/19/24 History gain loratadine 10 mg tablet (Claritin) 10 mg PO DAILY 06/13/24 07/02/24 History melatonin 10 mg tablet 5 mg PO HS 06/13/24 06/19/24 History multivitamin 2 tab PO DAILY 06/13/24 07/02/24 History oxybutynin chloride 5 mg 5 mg PO Q OTHER DAY bladder 06/13/24 07/02/24 History tablet,extended release 24 hr escitalopram oxalate 10 mg tablet 10 mg PO DAILY 07/17/24 Unknown History pantoprazole 40 mg tablet,delayed 40 mg PO DAILY 07/17/24 Unknown History release ascorbic acid (vitamin C) 500 mg 125 mg PO 1000 08/01/24 Unknown History tablet empagliflozin 10 mg tablet 5 mg PO QDAY diabetes 08/01/24 Unknown History (Jardiance) ferrous sulfate 325 mg (65 mg mg PO 08/01/24 Unknown History iron) capsule,extended release baclofen 5 mg tablet 5 mg PO QDAY muscle spasms 08/03/24 Unknown History Allergy/AdvReac Type Severity Reaction Status Date / Time No Known Allergies Allergy Verified 09/09/24 13:53 Family History Father Heart disease Myocardial infarction Mother Anxiety and depression Suicide and self-inflicted injury from suicide age 52. Surgical History Presence of stent in coronary artery History of bilateral cataract extraction History of skin surgery S/P colon polypectomy History of cardiac defibrillator placement History of cholecystectomy History of coronary artery stent placement Social History household members: spouse Smoking Status: Former smoker how long ago did patient quit smokin-1.5 ppd from teen until quit in 2008. alcohol intake: never substance use type: does not use caffeine: Yes EXAM Physical Exam Const Vital Signs: 09/09/24 13:50 09/09/24 14:38 09/09/24 14:39 Temperature 97.8 F Temperature Source Oral Pulse Rate 72 Respiratory Rate 22 H Respiratory Effort Short of Breath Respiratory Pattern Tachypnea Blood Pressure 122/69 H Blood Pressure Mean 86 Pulse Ox 98 100 Oxygen Delivery Method Room Air 09/09/24 14:40 09/09/24 15:00 09/09/24 15:00 Temperature 98.6 F Temperature Source Oral Pulse Rate 108 H 103 H 97 Respiratory Rate 22 H 25 H 22 H Respiratory Effort Respiratory Pattern Blood Pressure 137/56 H 135/49 H 135/49 H Blood Pressure Mean 83 77 77 Pulse Ox 100 99 99 Oxygen Delivery Method Room Air Room Air Room Air 09/09/24 15:27 09/09/24 16:00 09/09/24 16:00 Temperature 98.4 F Temperature Source Oral Pulse Rate 90 99 Respiratory Rate 16 16 Respiratory Effort Respiratory Pattern Blood Pressure 147/81 H 147/81 H Blood Pressure Mean 103 103 Pulse Ox 100 100 100 Oxygen Delivery Method Room Air Room Air Room Air MDM MDM MDM Narrative Medical decision making narrative: 69-year-old female with cardiac history presents for evaluation of exertional shortness of breath with associated chest tightness. Denies chest pain. On chart review, patient follows with Dr. Christine. On chart review, patient follows with Dr. Christine with cardiology. Patient had an echocardiogram in 08/2024. At that time EF was 55%. Differential diagnosis includes but is not limited to CHF exacerbation, pneumonia, ACS, PE, anemia. Cardiac workup ordered. EKG and chest x-ray reviewed, see below. CBC without leukocytosis or anemia. BMP shows mild renal insufficiency with a creatinine of 1.22 however this is similar to previous labs in the past. BNP unremarkable. D-dimer elevated at 0.72. This was just outside her age-adjusted therefore CTA chest ordered to assess for PE. Will give 500 cc bolus given her already known renal insufficiency. CTA chest pending at this time along with delta troponin. Patient signed out to night physician Dr. Tejeda. Final disposition pending results. EKG: Interpreted by me/EM physician: EKG shows atrial sensed ventricular paced rhythm. No acute ischemic changes. Heart rate 72. Diagnostic: Interpreted by me/EM physician: Chest x-ray without pneumonia, effusion, cardiomegaly, pneumothorax Impression: 1. Exertional shortness of breath 2. History of dilated cardiomyopathy status post MARKET ANALYSIS DIRECTOR-D implant 3. Renal insufficiency 4. Elevated D-dimer Lab Data Labs: Laboratory Results - last 24 hr 09/09/24 14:50 WBC 6.6 RBC 4.00 L Hgb 12.0 Hct 37.4 MCV 93.5 MCH 30.0 MCHC 32.1 RDW Std Deviation 47.0 H RDW Coeff of Edita 13.8 Plt Count 167 MPV 10.4 Immature Gran % (Auto) 0.200 Neut % (Auto) 51.6 Lymph % (Auto) 38.6 Frio % (Auto) 8.5 Eos % (Auto) 0.8 Baso % (Auto) 0.3 Absolute Neuts (auto) 3.4 Absolute Lymphs (auto) 2.53 Nucleated RBC % 0 PT 13.3 INR 1.0 APTT 21.2 L D-Dimer Quant (PE/DVT) 0.72 H* Sodium 139 Potassium 4.8 Chloride 106 Carbon Dioxide 28.0 Anion Gap 5 BUN 44 H Creatinine 1.22 H Estim Creat Clear Calc 41.66 Est GFR (MDRD) Af Amer 56 L Est GFR (MDRD) Non-Af 46 L BUN/Creatinine Ratio 36.1 H Glucose 231 H Calcium 9.4 Troponin I High Sens 5 B-Natriuretic Peptide 40.9 Radiography Diagnostic Testing: Clinical Impression(s) from Imaging Studies Chest X-Ray 09/09/24 15:45 IMPRESSION: No radiographic evidence of acute cardiopulmonary disease. Electronically Signed: Moisés Ortega MD at 16:22 EDT Reading Location ID and State: [facility] / [place] Tel , Service support , Discharge Plan Triage Chief Complaint: Shortness of Breath ED Provider: Jeffrey Justice Dx/Rx/DC Orders Prescriptions: No Action dicyclomine 10 mg capsule 20 mg PO TIDAC 90 Days Qty: 540 3RF furosemide 20 mg tablet 20 mg PO QDAY PRN (Reason: for 2lb weight gain) acetaminophen 500 mg tablet 500 mg PO Q6H PRN PRN (Reason: Pain Score 1-10) cyanocobalamin (vitamin B-12) 500 mcg tablet 500 mcg PO DAILY docusate sodium 100 mg capsule 100 mg PO DAILY PRN (Reason: constipation) loratadine [Claritin] 10 mg tablet 10 mg PO DAILY melatonin 10 mg tablet 5 mg PO HS multivitamin Tablet 2 tab PO DAILY escitalopram oxalate 10 mg tablet 10 mg PO DAILY pantoprazole 40 mg tablet,delayed release (DR/EC) 40 mg PO DAILY ferrous sulfate 325 mg (65 mg iron) capsule, extended release PO ascorbic acid (vitamin C) 500 mg tablet 125 mg PO 1000 trazodone 50 MG tablet 50 mg PO DAILY PRN (Reason: Anxiety) clonazepam 1 MG tablet 1 mg PO QHS metoprolol succinate 25 mg tablet extended release 24 hr 12.5 mg PO DAILY cholecalciferol (vitamin D3) 25 mcg (1,000 unit) Tablet 50 mcg PO QHS Qty: 0 0RF Jardiance 10 mg tablet 5 mg PO QDAY aspirin 81 mg tablet,delayed release (DR/EC) 81 mg PO .COMPLEX Rx Instructions: 81 mg orally EVERY OTHER DAY; spironolactone 25 mg tablet 12.5 mg PO .COMPLEX Rx Instructions: 12.5 mg orally every other day; metformin 500 mg tablet extended release 24 hr 500 mg PO DAILY rosuvastatin 20 mg tablet 20 mg PO QHS Entresto 24-26 mg tablet 0.5 tab PO BID oxybutynin chloride 5 mg tablet extended release 24hr 5 mg PO Q OTHER DAY clopidogrel 75 mg Tablet 75 mg PO DAILY Qty: 0 0RF prochlorperazine maleate 5 mg Tablet 10 mg PO Q4H PRN PRN (Reason: Nausea/Vomiting) 30 Days Qty: 120 0RF Primary Care Provider: Marci Nuñez Referrals: Marci Nuñez DO [Primary Care Provider] - Print Language: Nepali
[2024-09-09 15:56] LABS: Prothrombin Time (Protime)PT. 13.3 SECONDS (11.7-14.9)
[2024-09-09 15:57] LABS: Partial Thromboplast Time 21.2 Seconds (24.1-36.2)
[2024-09-09 16:08] LABS: BNP,B-Type NATRIURETIC PEPTIDE 40.9 pg/mL (0-100)
[2024-09-09 16:13] LABS: Troponin-I HS (w/2H Reflex) 5 pg/mL (3.0-54.0)
[2024-09-09 16:16] LABS: D-Dimer Quantitative (DVT/PE) 0.72 FEU/ug/m (0.27-0.49)
--- NOTE | 2024-09-09 16:20 | CT_ITS ---
STUDY: CTA CHEST REASON FOR EXAM: Female, 69 years old. Elevated D-dimer, shortness of breath RADIATION DOSAGE (If Supplied By Facility): CTDIvol = ( 4.2 ) mGy, DLP = ( 186.17 ) mGycm TECHNIQUE: The examination was performed with the intravenous administration of 100ML ISOVUE 370. Post-processing of the angiographic images was performed, with multiplanar reformation and 3D reconstruction. Individualized dose optimization techniques were used for this CT. COMPARISON: 02/26/2024 FINDINGS: Normal enhancement of the main pulmonary artery and right and left pulmonary arteries. Normal enhancement of the bilateral peripheral pulmonary arteries. There is no demonstrated pulmonary embolism. Normal thoracic aorta and visualized great vessels. There is no demonstrated aortic dissection. Normal heart and pericardium. Normal mediastinum. Normal hilar regions. Scattered emphysematous changes without acute infiltrate or consolidation. No mass lesions. No pleural effusions. No acute or aggressive osseous abnormality. No acute findings in the upper abdomen. CT/CTA Chest W/WO Contrast IMPRESSION: Normal CTA chest examination, without a demonstrated pulmonary embolism or arterial dissection. Electronically Signed: Moisés Ortega MD at 17:47 EDT ,
[2024-09-09] MEDS: 0.9% Normal Saline (500mL Bag) 500 ML 999 ML IV (16:29)
[2024-09-09 17:00] LABS: Reflex Troponin-HS? (from REC) Y
[2024-09-09 18:10] LABS: Troponin-I HS 7 pg/mL (3.0-54.0)
== END 2024-09-09 19:19 | disposition home or self-care (01) ==
PROVIDERS: Emergency Provider Surgery; PCP Family Medicine; Referring Provider Surgery; Visit Provider Surgery
DX: R06.09 Other forms of dyspnea (principal); I13.0 Hypertensive heart and chronic kidney disease with heart failure and stage 1 through stage 4 chronic kidney disease, or unspecified chronic kidney disease; I50.22 Chronic systolic (congestive) heart failure; E11.22 Type 2 diabetes mellitus with diabetic chronic kidney disease; E11.40 Type 2 diabetes mellitus with diabetic neuropathy, unspecified; E11.51 Type 2 diabetes mellitus with diabetic peripheral angiopathy without gangrene; Z87.891 Personal history of nicotine dependence; N18.9 Chronic kidney disease, unspecified; E78.00 Pure hypercholesterolemia, unspecified; R07.89 Other chest pain; Z86.73 Personal history of transient ischemic attack (TIA), and cerebral infarction without residual deficits; I25.10 Atherosclerotic heart disease of native coronary artery without angina pectoris; Z95.810 Presence of automatic (implantable) cardiac defibrillator; K21.9 Gastro-esophageal reflux disease without esophagitis; Z86.79 Personal history of other diseases of the circulatory system
CPT/HCPCS: 71046; 71275; 80048; 83880; 84484; 85025; 85379; 85610; 85730; 93005; 94760; 96360; 99284; J7040; Q9967; A4216

== ENCOUNTER 2024-11-02 07:09 | Emergency (ER) | payer MEDICARE, SELFPAY ==
[2024-11-02 07:10] VITALS: BP 114/60; PULSE 78; RESP 16; TEMP 36.6; O2SAT 100
[2024-11-02 07:15] VITALS: BMI 20.8
--- NOTE | 2024-11-02 07:17 | EX.ED.DYSGE1 ---
HPI History of Present Illness Chief Complaint: Syncope [facility] Medical History Ischemic colitis History of left heart catheterization History of mechanical ventilation Cardiogenic pulmonary edema Acute hypoxic respiratory failure Multiple lung nodules Major depressive disorder Left bundle branch block NSTEMI (non-ST elevated myocardial infarction) GERD (gastroesophageal reflux disease) Diabetic peripheral vascular disease Diabetic nephropathy Chronic kidney disease (CKD) Bleeding ulcer Anxiety Dyslipidemia Chronic systolic heart failure Pacemaker Congestive heart failure (CHF) Cerebral palsy Anxiety and depression Heart failure with reduced ejection fraction Insomnia Transient ischemic attack AV node dysfunction Ischemic cardiomyopathy Presence of biventricular implantable cardioverter-defibrillator Ulcer Restless legs High cholesterol Former smoker ICD (implantable cardioverter-defibrillator) in place Coronary artery disease CVA (cerebral vascular accident) PFO (patent foramen ovale) Cardiac resynchronization therapy defibrillator (PHYSICIAN CHIEF OF PATHOLOGY-D) in place Diabetes mellitus Myocarditis Hyperlipidemia Hypertension Home Medications ?Medication ?Instructions ?Recorded ?Last Taken ?Type clonazepam 1 mg tablet 1 mg PO QHS anxiety 11/18/14 07/02/24 History trazodone 50 mg tablet 50 mg PO DAILY PRN Anxiety 11/18/14 07/02/24 History metoprolol succinate 25 mg 12.5 mg PO DAILY blood pressure 09/28/23 07/02/24 History tablet,extended release 24 hr cholecalciferol (vitamin D3) 25 50 mcg (2 x 25 mcg (1,000 unit)) 09/30/23 07/02/24 Rx mcg (1,000 unit) tablet PO QHS supplement #0 tabs aspirin 81 mg tablet,delayed 81 mg PO .COMPLEX heart 10/01/23 07/02/24 History release spironolactone 25 mg tablet 12.5 mg PO .COMPLEX FLUID 10/07/23 07/02/24 History metformin 500 mg tablet,extended 500 mg PO DAILY blood sugars 02/21/24 07/02/24 History release 24 hr rosuvastatin 20 mg tablet 20 mg PO QHS cholesterol 02/21/24 07/02/24 History sacubitril 24 mg-valsartan 26 mg 0.5 tab PO BID heart 02/21/24 07/02/24 History tablet (Entresto) clopidogrel 75 mg tablet 75 mg PO DAILY #0 tabs 03/13/24 07/02/24 Rx prochlorperazine maleate 5 mg 10 mg (2 x 5 mg) PO Q4H PRN PRN 03/13/24 07/02/24 Rx tablet Nausea/Vomiting 30 days #120 tabs dicyclomine 10 mg capsule 20 mg (2 x 10 mg) PO TIDAC 90 days 05/23/24 07/02/24 Rx #540 caps acetaminophen 500 mg tablet 500 mg PO Q6H PRN PRN Pain Score 06/13/24 07/01/24 History 1-10 cyanocobalamin (vitamin B-12) 500 500 mcg PO DAILY 06/13/24 07/02/24 History mcg tablet docusate sodium 100 mg capsule 100 mg PO DAILY PRN constipation 06/13/24 07/02/24 History furosemide 20 mg tablet 20 mg PO QDAY PRN for 2lb weight 06/13/24 06/19/24 History gain loratadine 10 mg tablet (Claritin) 10 mg PO DAILY 06/13/24 07/02/24 History melatonin 10 mg tablet 5 mg PO HS 06/13/24 06/19/24 History multivitamin 2 tab PO DAILY 06/13/24 07/02/24 History oxybutynin chloride 5 mg 5 mg PO Q OTHER DAY bladder 06/13/24 07/02/24 History tablet,extended release 24 hr escitalopram oxalate 10 mg tablet 10 mg PO DAILY 07/17/24 Unknown History pantoprazole 40 mg tablet,delayed 40 mg PO DAILY 07/17/24 Unknown History release ascorbic acid (vitamin C) 500 mg 125 mg PO 1000 08/01/24 Unknown History tablet empagliflozin 10 mg tablet 5 mg PO QDAY diabetes 08/01/24 Unknown History (Jardiance) ferrous sulfate 325 mg (65 mg mg PO 08/01/24 Unknown History iron) capsule,extended release baclofen 5 mg tablet 5 mg PO QDAY muscle spasms 08/03/24 Unknown History albuterol sulfate 90 mcg/actuation 1 puff inhalation Q6H PRN 09/09/24 Unknown Rx aerosol inhaler shortness of breath or wheezing #8.5 grams ondansetron 4 mg disintegrating 4 mg PO Q8H PRN PRN Nausea #10 tabs 11/02/24 Unknown Rx tablet Allergy/AdvReac Type Severity Reaction Status Date / Time No Known Allergies Allergy Verified 09/14/24 14:00 Family History Father Heart disease Myocardial infarction Mother Anxiety and depression Suicide and self-inflicted injury from suicide age 52. Surgical History Presence of stent in coronary artery History of bilateral cataract extraction History of skin surgery S/P colon polypectomy History of cardiac defibrillator placement History of cholecystectomy History of coronary artery stent placement Social History household members: spouse Smoking Status: Former smoker how long ago did patient quit smokin-1.5 ppd from teen until quit in 2008. alcohol intake: never substance use type: does not use caffeine: Yes EXAM Physical Exam Const Vital Signs: 11/02/24 07:10 11/02/24 07:25 11/02/24 08:10 Temperature 97.9 F Temperature Source Oral Pulse Rate 78 60 Respiratory Rate 16 16 Respiratory Pattern Normal Blood Pressure 114/60 121/58 H Blood Pressure Mean 78 79 Pulse Ox 100 96 Oxygen Delivery Method Room Air 11/02/24 09:00 11/02/24 10:00 11/02/24 11:00 Temperature Temperature Source Pulse Rate 60 60 60 Respiratory Rate 16 16 16 Respiratory Pattern Blood Pressure 122/48 H 124/50 H 128/52 H Blood Pressure Mean 72 74 77 Pulse Ox 96 96 98 Oxygen Delivery Method 11/02/24 11:35 Temperature 98 F Temperature Source Pulse Rate 60 Respiratory Rate 16 Respiratory Pattern Blood Pressure 98/43 L Blood Pressure Mean 61 Pulse Ox 99 Oxygen Delivery Method MDM MDM MDM Narrative Medical decision making narrative: HISTORY OF PRESENT ILLNESS: 69-year-old female presents via EMS with concern for collapsing. Per the patient's she woke up this morning and then she collapsed. This occurred at 530 approximate 2 hours prior to arrival. then called EMS. EMS noted her blood sugar was 270. EMS offered the patient transferred to nearest ED which in this case was the emergency department in [place]. The patient and refused instead opting to drive by private vehicle here to [place] emergency department. Patient reports diffuse weakness, dizziness and chills. states she feels warm. There was report of head trauma. Per the patient she has been weak/dizzy with chills constant since June, the last 4 months. This has not worsened or changed. She does note nausea, 1 episode of vomiting this morning. She does endorse some lower abdominal pain. She denied losing consciousness. Patient also denies chest pain or shortness of breath. She notes when she got up to use the bathroom she felt weak all over and fell to her knees and then fell over on her left hitting her head. Denies any loss of consciousness afterwards. Denies any focal weakness. Denies any bleeding diathesis. Denies any shortness of breath, cough. notes she did feel warm but patient denies fever. Denies any urinary complaints. REVIEW OF SYSTEMS: Pertinent positives: Diffuse weakness, dizziness, chills, tactile fever pertinent negatives: Loss of consciousness, chest pain, palpitations or shortness of breath PHYSICAL EXAM: Nursing triage notes reviewed, Vital signs reviewed Constitutional: please see mdm HENT: MMM, no hemotympanum, no signs of head trauma, no cephalhematoma, midface stable, no intraoral lesions, no nasal septal hematoma, Eyes: Pupils equal round and reactive to light, Extraocular muscles intact, no signs of entrapment Neck: No stridor, no JVD, full neck ROM, no posterior cervical spine tenderness Lungs: Clear to auscultation, No wheezing or rales. No increased work of breathing, no conversational dyspnea, no accessory muscle use, no nasal flaring. No respiratory distress noted, no TTP to chest, no flail chest or crepitus noted. Heart: Regular rate and rhythm, No murmurs, No rubs and No gallops, 2+ distal pulses (radial, femoral, posterior tibial) in all extremities Abdomen: Soft.lower abdominal TTP but no rigidity, rebound or guarding noted, no obvious peritoneal signs noted, no palpable pulsatile abdominal masses, no auscultated abdominal bruit : No CVAT Extremities: No edema, no obvious deformities, full range of motion all extremities in all joints, Neuro: No new focal neurological deficits, alert and orient x 3, cranial nerves II through XII intact, 5/5 strength in all present extremities. Intact sensation to light touch in all present extremities, 2+ reflexes bilateral patella tendons. NIH of 0 Skin: No rash or lesions noted MEDICAL DECISION MAKING: Chief Complaint: Syncope External records reviewed: Reviewed prior echocardiogram from August 2024 showed ejection fraction 55%, no diastolic dysfunction, no regional wall motion abnormalities Factors affecting care: CHF, peripheral vascular disease, type 2 diabetes, diabetic neuropathy, CKD, status post pacemaker, status post defibrillator, CVA, hypertension, hyperlipidemia. Social determinants of health: none History obtained from others: EMS, Consults: Cardiology MDM Narrative: Patient was initially hemodynamically stable, afebrile and nontoxic-appearing. Exam without obvious signs of trauma. There is a chronically ill-appearing patient with normal vital signs. She seemed fatigued but was in no acute distress. She was alert and orient x 3. She had a nonfocal neurologic exam. On exam she did have some lower abdominal TTP. I considered the following differential diagnosis: ICH, anemia,, arrhythmia, pacemaker malfunction, ACS, UTI, pneumonia, COVID, flu, RSV Patient was initially treated with IV Zofran. ALL IMAGES (IF OBTAINED) HAVE BEEN PERSONALLY REVIEWED AND INTERPRETED BY MYSELF. EKG with atrial sensed ventricular paced rhythm rate of 67, right axis deviation, prolonged QT interval at 505, no ischemic changes, similar to prior High-sensitivity troponin is negative, no evidence of myocardial ischemia, CBC with leukocytosis suggestive of systemic summation, no anemia or thrombocytopenia BMP with baseline CKD, no severe electrolyte imbalance, no signs of metabolic acidosis or endorgan hypoperfusion with a normal bicarb and anion gap, LFTs show no evidence of hepatobiliary pathology. BNP within normal limits suggesting no heart Lipase is wnl indicating no pancreatic inflammation. I have personally reviewed the patient's chest x-ray. Chest x-ray is unremarkable for pulmonary edema, pneumothorax, pneumonia or focal cardiopulmonary abnormality. CT scan of the head showed no evidence of intracranial normality CT scan of the abdomen pelvis contrast showed no evidence of obvious intra-abdominal abnormality COVID flu RSV are Urinalysis shows no evidence of urinary inflammation suggestive of UTI Upon reassessment patient's nausea was better, vitals remained stable, repeat neurologic, cardiac and abdominal exams or intact or benign. Discussed my impression with the before and after school daycare worker on-call Dr. Layton who did not feel the patient needed to be admitted from a cardiac perspective given reassuring pacemaker check, negative troponins x 2 and nonischemic EKG. In terms of diffuse weakness patient is ambulatory here. The no focality to her weakness. Had negative CT scan of her head. I have a low suspicion for CVA or acute intracranial process. There are no signs of infection or significant anemia or electrolyte abnormalities to precipitate her presentation. No signs of UTI. Discussed the patient and who are okay having her go home. I thought this was the best course of action given reassuring labs images. Patient was discharged stable addition with Zofran to take as needed. The patient and/or family, caregivers express understanding. The patient and/or family, caregivers agrees with the plan. Shared decision making: I will have a discussion with the patient and or visitors regarding risk/benefits of further testing or admission. They will be made aware of of the risk/benefits inherent in this decision they will be given the opportunity to voice understanding. Total critical care time today provided was at least 0 minutes. This excludes separately billable procedures. Critical care time (if documented) is secondary to the patient having high probability of clinically significant/life threatening deterioration in the patient's condition which required my urgent intervention. Impression: 1. Chronic weakness 2. History of PHYSICIAN CHIEF OF PATHOLOGY?D 3. Leukocytosis Dispo: Discharge home This note was generated with [employer] dictation software. It may contain incorrect words, spelling, and punctuation that were not noted in review of the chart prior to signing. Lab Data Labs: Laboratory Results - last 24 hr 11/02/24 11/02/24 11/02/24 07:23 08:53 09:45 WBC 12.7 H RBC 4.27 Hgb 12.9 Hct 39.2 MCV 91.8 MCH 30.2 MCHC 32.9 RDW Std Deviation 47.5 H RDW Coeff of Edita 14.1 Plt Count 138 L MPV 11.2 Sodium 138 Potassium 4.4 Chloride 106 Carbon Dioxide 27.0 Anion Gap 5 BUN 30 H Creatinine 1.30 H Estim Creat Clear Calc 38.97 Est GFR (MDRD) Af Amer 52 L Est GFR (MDRD) Non-Af 43 L BUN/Creatinine Ratio 23.1 H Glucose 224 H Calcium 9.5 Total Bilirubin 0.40 AST 20 ALT 17 Alkaline Phosphatase 64 Troponin I High Sens 15 22 B-Natriuretic Peptide 52.4 Total Protein 7.6 Albumin 4.0 Globulin 3.6 Albumin/Globulin Ratio 1.1 Lipase 41 Urine Color Yellow Urine Clarity Clear Urine pH 6.0 Ur Specific [place] 1.010 Urine Protein Negative Urine Glucose (UA) 1000 H Urine Ketones Negative Urine Occult Blood Negative Urine Nitrite Negative Urine Bilirubin Negative Urine Urobilinogen Normal Ur Leukocyte Esterase Negative Urine RBC 0 SEEN Urine WBC 0 SEEN Ur Squamous Epith Cells 0 SEEN Urine Bacteria 0 SEEN Urine Mucus 0 SEEN Radiography Diagnostic Testing: Clinical Impression(s) from Imaging Studies Abdomen/Pelvis CT 11/02/24 07:29 IMPRESSION: Status post cholecystectomy. Stable left cyst. Sigmoid diverticulosis. Atherosclerotic changes of the abdominal aorta and its major visceral branches. Electronically Signed: Yousif Elena MD at 8:51 EST , Brain CT 11/02/24 07:29 IMPRESSION: Chronic involutional changes of the brain. Electronically Signed: Yousif Elena MD at 8:46 EST , Chest X-Ray 11/02/24 07:29 IMPRESSION: Hyperinflation. The lungs are clear. Electronically Signed: Yousif Elena MD at 8:44 EST , Discharge Plan Triage Chief Complaint: Syncope ED Provider: Varun Morrell Dx/Rx/DC Orders Instructions: High Blood Sugar (Hyperglycemia) Prescriptions: New ondansetron 4 mg tablet,disintegrating 4 mg PO Q8H PRN PRN (Reason: Nausea) Qty: 10 0RF No Action dicyclomine 10 mg capsule 20 mg PO TIDAC 90 Days Qty: 540 3RF furosemide 20 mg tablet 20 mg PO QDAY PRN (Reason: for 2lb weight gain) acetaminophen 500 mg tablet 500 mg PO Q6H PRN PRN (Reason: Pain Score 1-10) cyanocobalamin (vitamin B-12) 500 mcg tablet 500 mcg PO DAILY docusate sodium 100 mg capsule 100 mg PO DAILY PRN (Reason: constipation) loratadine [Claritin] 10 mg tablet 10 mg PO DAILY melatonin 10 mg tablet 5 mg PO HS multivitamin Tablet 2 tab PO DAILY escitalopram oxalate 10 mg tablet 10 mg PO DAILY pantoprazole 40 mg tablet,delayed release (DR/EC) 40 mg PO DAILY ferrous sulfate 325 mg (65 mg iron) capsule, extended release PO ascorbic acid (vitamin C) 500 mg tablet 125 mg PO 1000 trazodone 50 MG tablet 50 mg PO DAILY PRN (Reason: Anxiety) clonazepam 1 MG tablet 1 mg PO QHS metoprolol succinate 25 mg tablet extended release 24 hr 12.5 mg PO DAILY cholecalciferol (vitamin D3) 25 mcg (1,000 unit) Tablet 50 mcg PO QHS Qty: 0 0RF Jardiance 10 mg tablet 5 mg PO QDAY aspirin 81 mg tablet,delayed release (DR/EC) 81 mg PO .COMPLEX Rx Instructions: 81 mg orally EVERY OTHER DAY; spironolactone 25 mg tablet 12.5 mg PO .COMPLEX Rx Instructions: 12.5 mg orally every other day; metformin 500 mg tablet extended release 24 hr 500 mg PO DAILY rosuvastatin 20 mg tablet 20 mg PO QHS Entresto 24-26 mg tablet 0.5 tab PO BID oxybutynin chloride 5 mg tablet extended release 24hr 5 mg PO Q OTHER DAY clopidogrel 75 mg Tablet 75 mg PO DAILY Qty: 0 0RF prochlorperazine maleate 5 mg Tablet 10 mg PO Q4H PRN PRN (Reason: Nausea/Vomiting) 30 Days Qty: 120 0RF albuterol sulfate 90 mcg/actuation HFA aerosol inhaler 1 puff inhalation Q6H PRN (Reason: shortness of breath or wheezing) Qty: 8.5 0RF Primary Care Provider: Marci Nuñez Referrals: Marci Nuñez DO [Primary Care Provider] - Joo Christine MD [Med Staff - Active Staff] - Activity Restrictions/Additional Instructions: Thank you for trusting us with your care today! Your labs images were reassuring. Please take Tylenol (2 pills, 650 mg), ibuprofen (2 pills, 400 mg) every 6 hours as needed for pain and fever control. Please return to the emergency department if your symptoms change or worsen. Please follow with your primary care physician for further outpatient evaluation and management. Print Language: Greek Disposition Disposition: Home, Self Care Discharge Date/Time: 11/02/24 11:37
--- NOTE | 2024-11-02 07:21 | EKG12_ITS ---
Test Reason : DIZZY Blood Pressure : */* mmHG Vent. Rate : 67 BPM Atrial Rate : 67 BPM P-R Int : 146 ms QRS Dur : 110 ms QT Int : 478 ms P-R-T Axes : 53 96 64 degrees QTcB Int : 505 ms Atrial-sensed ventricular-paced rhythm Biventricular pacemaker detected Abnormal ECG Confirmed by EDGARDO MORENO, CLIFF ([id number]), photography editor VILMA DAVIDSON ([id number]) on 11/08/2024 1:23:14 P M Referred By: Confirmed By: CLIFF REYNOSO MD
--- NOTE | 2024-11-02 07:29 | RAD_ITS ---
STUDY: X-RAY CHEST REASON FOR EXAM: Female, 69 years old. Syncope TECHNIQUE: Single AP portable view of the chest. COMPARISON: Comparison is made with prior study September 09, 2024. FINDINGS: EKG electrodes are seen. Hyperinflation. The lungs are clear. There is no demonstrated pleural abnormality. Normal size heart. A left-sided dual-chamber pacemaker is seen. Normal mediastinum and alex. Normal visualized pulmonary arteries. Normal visualized aortic arch and descending thoracic aorta. Normal visualized thoracic spine. Normal visualized ribs, clavicles, and shoulders. There is no demonstrated abnormality of the visualized soft tissue structures of the upper abdomen. RAD/Chest 1 View (Portable) IMPRESSION: Hyperinflation. The lungs are clear. Electronically Signed: Yousif Elena MD at 8:44 EST ,
--- NOTE | 2024-11-02 07:29 | CT_ITS ---
STUDY: CT BRAIN WITHOUT CONTRAST REASON FOR EXAM: Female, 69 years old. Head injury due to a fall. Patient is on Plavix. RADIATION DOSAGE (If Supplied By Facility): CTDIvol = ( 44.99 ) mGy, DLP = ( 829.85 ) mGycm TECHNIQUE: Transaxial CT imaging of the brain was performed without administration of intravenous contrast material. Individualized dose optimization techniques were used for this CT. COMPARISON: Comparison is made with prior examination dated October 07, 2023. FINDINGS: Normal soft tissue structures. Normal calvarium. There is mild cerebral atrophy with widening of the extra-axial spaces and ventricular dilatation. Once again, there is evidence of encephalomalacia in the left hemisphere involving the left parietal and left temporal lobes. Mild dilatation of the left lateral ventricle due to the encephalomalacia in the left cerebrum. Normal basal ganglia and thalami. Normal brainstem. Normal cerebellum. There is no intracranial hemorrhage. There are no findings of an acute ischemic infarction. Normal visualized paranasal sinuses. CT/Brain/Head without Contrast IMPRESSION: Chronic involutional changes of the brain. Electronically Signed: Yousif Elena MD at 8:46 EST ,
--- NOTE | 2024-11-02 07:29 | CT_ITS ---
STUDY: CT ABDOMEN AND PELVIS WITHOUT CONTRAST REASON FOR EXAM: Female, 69 years old. Abdominal pain. Dizziness. RADIATION DOSAGE (If Supplied By Facility): CTDIvol = ( 10.77 ) mGy, DLP = ( 554.35 ) mGycm TECHNIQUE: Transaxial images were obtained from the dome of the diaphragm to the symphysis pubis without oral contrast, and without intravenous contrast. Sagittal and coronal images were reconstructed. Individualized dose optimization techniques were used for this CT. COMPARISON: Comparison is made with prior study June 28, 2024. FINDINGS: The visualized lung bases are unremarkable. Coronary calcification. Dual-chamber pacemaker is seen. Normal liver. There are surgical clips in the gallbladder fossa consistent with a prior cholecystectomy. Normal spleen. Normal pancreas. Normal bilateral adrenal glands. Normal right kidney. There is a 5.6 cm x 4.3 cm cyst in the upper midpole region of the left kidney. Normal visualized stomach. Normal small intestine. There are multiple colonic diverticula consistent with diverticulosis. There is non-visualization of the appendix. There is diffuse atherosclerotic calcification of the abdominal aorta and its major visceral branches, without a demonstrated aneurysm. Normal inferior vena cava. Normal retroperitoneum. Normal urinary bladder. Normal abdominal wall. There are degenerative changes of the visualized lumbar spine. CT/Abdomen/Pelvis without Cont IMPRESSION: Status post cholecystectomy. Stable left cyst. Sigmoid diverticulosis. Atherosclerotic changes of the abdominal aorta and its major visceral branches. Electronically Signed: Yousif Elena MD at 8:51 EST ,
[2024-11-02 07:44] LABS: Hematocrit 39.2 % (37-47); Hemoglobin 12.9 g/dL (12.0-15.0); Mean Corp Hgb Conc 32.9 g/dL (32-36); Mean Corpuscular Hgb 30.2 pg (27.0-32.0); Mean Corpuscular Volume 91.8 fL (81-99); Mean Platelet Vol. 11.2 fl (6.2-12.0); Platelet Count 138 K/mm3 (150-450); RBC Distribution Width CV 14.1 % (11.6-14.6); RBC Distribution Width SD 47.5 fl (35.1-43.9); Red Blood Count 4.27 M/mm3 (4.2-5.4); White Blood Count 12.7 K/mm3 (4.4-11.0)
[2024-11-02] MEDS: Ondansetron 4 MG/2 ML Vial IV (07:45)
[2024-11-02 08:02] LABS: ALB/GLOB Ratio 1.1 RATIO (0.9-2.4); AST(SGOT) 20 U/L (15-37); Alanine Aminotransfer ALT/SGPT 17 U/L (13-56); Alkaline Phosphatase 64 U/L (45-117); Anion Gap 5 (5-15); BUN 30 mg/dL (7-18); BUN/Creat Ratio 23.1 RATIO (10-20); Calcium,Total 9.5 mg/dL (8.5-10.1); Chloride 106 mmol/L (98-107); EST Glomerular Filtration Rate 43 mL/min (>60); Est Glom Filt Rate - Afr Amer 52 mL/min (>60); Estimated Creatinine Clearance 38.97 ml/min; Globulin 3.6 g/dL (2.2-4.2); Glucose 224 mg/dL (74-106); Lipase 41 U/L (13-75); Potassium 4.4 mmol/L (3.5-5.1); Protein, Total 7.6 g/dL (6.4-8.2); Sodium Level 138 mmol/L (136-145); Troponin-I HS (w/2H Reflex) 15 pg/mL (3.0-54.0)
[2024-11-02] MEDS: Morphine 2 MG/ML Syringe IV (08:09)
[2024-11-02 08:10] VITALS: BP 121/58; PULSE 60; RESP 16; O2SAT 96
[2024-11-02 08:38] LABS: BNP,B-Type NATRIURETIC PEPTIDE 52.4 pg/mL (0-100)
[2024-11-02 09:00] VITALS: BP 122/48; PULSE 60; RESP 16; O2SAT 96
[2024-11-02 09:00] LABS: Bacteria 0 SEEN /hpf (None Seen); Color, Urine Yellow (Yellow); Glucose, Dipstick 1000 mg/dl (Normal); Ketone-Dipstick Negative (Negative); Leukocyte Esterase-Dipstick Negative /ul (Negative); Mucous, Urine 0 SEEN /hpf (<or=2+); Nitrite-Dipstick Negative (Negative); Occult Blood-Urine Negative /ul (Negative); Protein-Dipstick Negative (Negative); Red Blood Cells-Urine 0 SEEN /hpf (0-5); Squamous Epithelial Cells - UA 0 SEEN /hpf (5-10); Urine Bilirubin Dipstick Negative (Negative); Urine Clarity Clear (Clear); Urine Urobilinogen Normal (Normal); White Blood Cells 0 SEEN /hpf (0-5)
[2024-11-02 09:36] LABS: Reflex Troponin-HS? (from REC) Y
[2024-11-02 10:00] VITALS: BP 124/50; PULSE 60; RESP 16; O2SAT 96
[2024-11-02 10:07] LABS: Troponin-I HS 22 pg/mL (3.0-54.0)
[2024-11-02 11:00] VITALS: BP 128/52; PULSE 60; RESP 16; O2SAT 98
[2024-11-02 11:35] VITALS: BP 98/43; PULSE 60; RESP 16; TEMP 36.6; O2SAT 99
== END 2024-11-02 11:37 | disposition home or self-care (01) ==
PROVIDERS: Emergency Provider Emergency Medicine; PCP Family Medicine; Visit Provider Emergency Medicine
DX: R53.1 Weakness (principal); I50.22 Chronic systolic (congestive) heart failure; I13.0 Hypertensive heart and chronic kidney disease with heart failure and stage 1 through stage 4 chronic kidney disease, or unspecified chronic kidney disease; E11.22 Type 2 diabetes mellitus with diabetic chronic kidney disease; E11.40 Type 2 diabetes mellitus with diabetic neuropathy, unspecified; E11.51 Type 2 diabetes mellitus with diabetic peripheral angiopathy without gangrene; R55 Syncope and collapse; D72.829 Elevated white blood cell count, unspecified; E78.00 Pure hypercholesterolemia, unspecified; Z87.891 Personal history of nicotine dependence; N18.9 Chronic kidney disease, unspecified; Z86.73 Personal history of transient ischemic attack (TIA), and cerebral infarction without residual deficits; I25.10 Atherosclerotic heart disease of native coronary artery without angina pectoris; K21.9 Gastro-esophageal reflux disease without esophagitis; Z95.810 Presence of automatic (implantable) cardiac defibrillator
CPT/HCPCS: 70450; 71045; 74176; 80053; 81001; 83690; 83880; 84484; 85027; 87631; 93005; 99284; A4216; J2405

== ENCOUNTER 2024-11-14 12:00 | Outpatient (RCR) | payer MEDICARE, SELFPAY ==
--- NOTE | 2024-09-27 14:59 | HP.PTEVAL ---
Patient's Visit Information Visit Information Visit Information: BETTY CARO is a 69 year old F referred to Physical Therapy by Dr. Marci Nuñez DO with a diagnosis of GENERALIZED WEAKNESS ,IMBALANCE. Date of Evaluation: 09/27/24 Physical Therapist: Cecilio Banuelos, PT, Cert MDT, OCS Visit Plan Frequency: 1x/Week Duration: 4 Weeks Plan: PT INTERVENTION BALANCE TRAINING ,FUNCTIONAL STRENGTHENING ,ENDURANCE PROGRAM AND BLE STRENGTHENING Subjective Subjective: This 69 y/o female present to physical therapy with generalized weakness and decrease gait. Patient had CVA 2008 due to blood clot. Patient has myocardial cardiomyositis along with cardiac myelopathy thus place RESOURCE RECOVERY SPECIALIST -D implant with defibrillator CD (Cardiac resynchronization therapy defibrillator RESOURCE RECOVERY SPECIALIST-D) and (implantable cardioverter-defibrillator) . Patient has had recently has had colitis in June and had to be hospitalized. Thus patient has multiple medical complexity issues affect patient prognosis. Patient has hemianopsia visual superior. Most recently seen Dr and recommend PT with weakness. Patient denies pain. Patient denies paresthesia/tingling . Patient remors seems to be getting worse. Patient has rollator and fww . Patient requires With bathing and ADLS. Patient live in 1 tory home with 10 steps with rails. TIB.shower with grab bars and chairs. No recent falls. Patient condition affects QOL Objective Objective: POSTURE: mild forward posture PALPATION: UNREMARKABLE NEURO: denies paresthesia/tingling GAIT: ambulates with slow manjula mild forward posture unsteady gait MMT: ( peak force) quads left 18.2 ,left 20.1 ,hip flexion right 12.9 ,left 13.2.hamstrings right 17.2 ,left 19.2 FLEXABILITY: hams min tight STAIRS: one step at time with rails Balance/Special Test Scores Functional Gait Assessment Score: 15 % Disability: 50.0000 CATSIB Score (Max score 120 seconds): 52 Lower Extremity Functional Score: 27 Goals Goal 1:: Patient to be I with HEP Goal Time Frame: 4-6 Weeks Goal 2:: Patient to improve CTSIBE by 5-10 points to improve balance Goal Time Frame: 4-6 Weeks Goal 3:: Patient to improve functional gait assessment score by 5-10 points to improve gait Goal Time Frame: 4-6 Weeks Goal 4:: Patient to improve LFES score by 5 -10 points to improve QOL Goal Time Frame: 4-6 Weeks Goal 5:: Patient to improve peak force quads/hams/hip by 5-10 # to improve gait and function Goal Time Frame: 4-6 Weeks Rehabilitation Potential Physical Therapy Diagnosis: Patient has multiple comorbities to influence condition with impaired gait ,weakness and balance thus benefit from skilled PT Rehabilitation Potential: Good Anticipated Interventions Patient/Client Instruction: Educate patient on: Condition and Plan of Care For the Purpose of:: To improve muscle performance and motor function, To improve ability to perform ADL's, To increase tolerance to activity/condition/position, To improve performance and independence with ADL's, To improve ability of physical actions for home/community/work/leisure, To improve gait and locomotor functions, To increase flexibility/ROM, To improve endurance, To improve balance and To improve tolerance to ADL's Therapeutic Exercise to Include: Strength training, Endurance training, Balance training and Gait and locomotor training For the Purpose of:: To decrease pain, To improve muscle performance and motor function, To improve ability to perform ADL's, To increase tolerance to activity/condition/position, To improve ability of physical actions for home/community/work/leisure, To improve gait and locomotor functions, To increase flexibility/ROM, To improve endurance and To improve balance Text: Thank you for the opportunity to evaluate your patient. For Medicare and Medicare HMO plans, please review the plan of care and approve it. It will need to be FAXED BACK to us at [phone] for Medicare purposes. For Medicare only, by signing this I certify the plan of care. Please let me know if there are questions or concerns regarding this plan of care. Physician Signature: Date:
--- NOTE | 2025-03-28 09:21 | HP.PTDCSUM ---
Discharge Summary D/C summary: It has been my pleasure to treat BETTY CARO referred by Dr. Marci Nuñez DO, with the diagnosis of GENERALIZED WEAKNESS ,IMBALANCE for a total of 8 visit(s). Discharge Date: Please see the following information for a summary of their discharge status. Subjective Subjective: Patient is some depressed , stated that she has severe blockage on carotid arteries Objective Objective/Function: POSTURE: mild forward posture PALPATION: UNREMARKABLE NEURO: denies paresthesia/tingling GAIT: ambulates with slow manjula mild forward posture unsteady gait MMT: ( peak force) quads left 18.2 ,left 20.1 ,hip flexion right 12.9 ,left 13.2.hamstrings right 17.2 ,left 19.2 FLEXABILITY: hams min tight STAIRS: one step at time with rails Goals Goal 1:: Patient to be I with HEP Goal 2:: Patient to improve CATSIB by 5-10 points to improve balance.. Goal 3:: Patient to improve functional gait assessment score by 5-10 points to improve gait Goal 4:: Patient to improve LFES score by 5 -10 points to improve QOL Goal 5:: Patient to improve peak force quads/hams/hip by 5-10 # to improve gait and function Plan Plan: D/C D/C Information d/c sentence: If there are questions or concerns regarding this patient's physical therapy, please feel free to call me at [phone]. Thank you for the referral of this patient. Sincerely, Cecilio Banuelos, PT, Cert MDT, OCS Balance/Gait/Functional tests Balance/Special Test Scores Functional Gait Assessment Score: 15 % Disability: 50.0000 CATSIB Score (Max score 120 seconds): 52 Lower Extremity Functional Score: 27
== END 2024-11-14 19:00 | disposition home or self-care (01) ==
LOC: PT 12:00
PROVIDERS: PCP Family Medicine; Referring Provider Family Medicine; Visit Provider Family Medicine
DX: M54.59 Other low back pain (principal); R26.89 Other abnormalities of gait and mobility; R53.1 Weakness
CPT/HCPCS: 97110; 97162; 97530

== ENCOUNTER 2024-11-18 14:19 | Emergency (ER) | payer MEDICARE, SELFPAY ==
[2024-11-18 14:20] VITALS: BP 122/74; PULSE 82; RESP 16; TEMP 36.9; O2SAT 97
--- NOTE | 2024-11-18 14:36 | CT_ITS ---
STUDY: CT ABDOMEN AND PELVIS WITH CONTRAST - URINARY TRACT REASON FOR EXAM: Female, 69 years old. RLQ pain RADIATION DOSAGE (If Supplied By Facility): CTDIvol = ( 14.8 ) mGy, DLP = ( 511.29 ) mGycm TECHNIQUE: IV 100mL [id number]-[id number] was administered. Transaxial images were obtained from the dome of the diaphragm to the symphysis pubis in the arterial, nephrographic and excretory phases. Multiplanar coronal and sagittal images were reformatted. The protocol utilizes one or more of the following dose reduction techniques: automated exposure control, adjustment of mA and/or kV according to patient size,and/or use of iterative reconstruction technique. COMPARISON: June 28, 2024 and November 02, 2024 and MRI dated November 19, 2014 FINDINGS: The visualized lung bases are unremarkable. There is a cardiac pacer device in place. Normal liver. There are surgical clips in the gallbladder fossa consistent with a prior cholecystectomy. Normal spleen. Normal pancreas. Normal bilateral adrenal glands. Normal visualized stomach. Normal small intestine. There are multiple colonic diverticula consistent with diverticulosis. There is a moderate amount of stool throughout the colon. There is non-visualization of the appendix. There is diffuse atherosclerotic calcification of the abdominal aorta, without a demonstrated aneurysm. No retroperitoneal adenopathy. There is stable right-sided pelvicaliectasis. There is a stable left renal cyst. Normal urinary bladder. Normal abdominal wall. There are diffuse degenerative changes of the visualized lumbar spine. CT/Abdomen/Pelvis W IV Cont ONLY IMPRESSION: Stable right-sided pelvicaliectasis. Moderate amount of stool throughout the colon. Colonic diverticulosis. Atherosclerosis. Electronically Signed: Linda Martin MD at 16:17 EST ,
--- NOTE | 2024-11-18 14:40 | ED.VIS.GI ---
HPI <AMRIK Lopes - Last Filed: 11/18/24 19:21> HPI - GI History of Present Illness Chief Complaint: Abd Pain Narrative Narrative: Patient presenting today with right lower quadrant abdominal pain she has had over the last several days, she reports a history of chronic abdominal pain and ischemic colitis, she follows with Dr. Lockett for this. Her pain is usually generalized across her lower abdomen but seems to be more severe now in the RLQ which is unusual for her. She last had a bowel movement today that was normal, no melena or hematochezia. She denies fevers, chills, nausea, vomiting, and diarrhea. She takes Bentyl for her abdominal pain which has not been helping. Previous abdominal surgery includes a cholecystectomy. [facility] <AMRIK Lopes - Last Filed: 11/18/24 19:21> [facility] Medical History Ischemic colitis History of left heart catheterization History of mechanical ventilation Cardiogenic pulmonary edema Acute hypoxic respiratory failure Multiple lung nodules Major depressive disorder Left bundle branch block NSTEMI (non-ST elevated myocardial infarction) GERD (gastroesophageal reflux disease) Diabetic peripheral vascular disease Diabetic nephropathy Chronic kidney disease (CKD) Bleeding ulcer Anxiety Dyslipidemia Chronic systolic heart failure Pacemaker Congestive heart failure (CHF) Cerebral palsy Anxiety and depression Heart failure with reduced ejection fraction Insomnia Transient ischemic attack AV node dysfunction Ischemic cardiomyopathy Presence of biventricular implantable cardioverter-defibrillator Ulcer Restless legs High cholesterol Former smoker ICD (implantable cardioverter-defibrillator) in place Coronary artery disease CVA (cerebral vascular accident) PFO (patent foramen ovale) Cardiac resynchronization therapy defibrillator (GRAVITY PROSPECTING OPERATOR HELPER-D) in place Diabetes mellitus Myocarditis Hyperlipidemia Hypertension Home Medications ?Medication ?Instructions ?Recorded ?Last Taken ?Type clonazepam 1 mg tablet 1 mg PO QHS anxiety 11/18/14 07/02/24 History trazodone 50 mg tablet 50 mg PO DAILY PRN Anxiety 11/18/14 07/02/24 History metoprolol succinate 25 mg 12.5 mg PO DAILY blood pressure 09/28/23 07/02/24 History tablet,extended release 24 hr cholecalciferol (vitamin D3) 25 50 mcg (2 x 25 mcg (1,000 unit)) 09/30/23 07/02/24 Rx mcg (1,000 unit) tablet PO QHS supplement #0 tabs aspirin 81 mg tablet,delayed 81 mg PO .COMPLEX heart 10/01/23 07/02/24 History release spironolactone 25 mg tablet 12.5 mg PO .COMPLEX FLUID 10/07/23 07/02/24 History metformin 500 mg tablet,extended 500 mg PO DAILY blood sugars 02/21/24 07/02/24 History release 24 hr rosuvastatin 20 mg tablet 20 mg PO QHS cholesterol 02/21/24 07/02/24 History sacubitril 24 mg-valsartan 26 mg 0.5 tab PO BID heart 02/21/24 07/02/24 History tablet (Entresto) clopidogrel 75 mg tablet 75 mg PO DAILY #0 tabs 03/13/24 07/02/24 Rx prochlorperazine maleate 5 mg 10 mg (2 x 5 mg) PO Q4H PRN PRN 03/13/24 07/02/24 Rx tablet Nausea/Vomiting 30 days #120 tabs dicyclomine 10 mg capsule 20 mg (2 x 10 mg) PO TIDAC 90 days 05/23/24 07/02/24 Rx #540 caps acetaminophen 500 mg tablet 500 mg PO Q6H PRN PRN Pain Score 06/13/24 07/01/24 History 1-10 cyanocobalamin (vitamin B-12) 500 500 mcg PO DAILY 06/13/24 07/02/24 History mcg tablet docusate sodium 100 mg capsule 100 mg PO DAILY PRN constipation 06/13/24 07/02/24 History furosemide 20 mg tablet 20 mg PO QDAY PRN for 2lb weight 06/13/24 06/19/24 History gain loratadine 10 mg tablet (Claritin) 10 mg PO DAILY 06/13/24 07/02/24 History melatonin 10 mg tablet 5 mg PO HS 06/13/24 06/19/24 History multivitamin 2 tab PO DAILY 06/13/24 07/02/24 History oxybutynin chloride 5 mg 5 mg PO Q OTHER DAY bladder 06/13/24 07/02/24 History tablet,extended release 24 hr escitalopram oxalate 10 mg tablet 10 mg PO DAILY 07/17/24 Unknown History pantoprazole 40 mg tablet,delayed 40 mg PO DAILY 07/17/24 Unknown History release ascorbic acid (vitamin C) 500 mg 125 mg PO 1000 08/01/24 Unknown History tablet empagliflozin 10 mg tablet 5 mg PO QDAY diabetes 08/01/24 Unknown History (Jardiance) ferrous sulfate 325 mg (65 mg mg PO 08/01/24 Unknown History iron) capsule,extended release baclofen 5 mg tablet 5 mg PO QDAY muscle spasms 08/03/24 Unknown History albuterol sulfate 90 mcg/actuation 1 puff inhalation Q6H PRN 09/09/24 Unknown Rx aerosol inhaler shortness of breath or wheezing #8.5 grams ondansetron 4 mg disintegrating 4 mg PO Q8H PRN PRN Nausea #10 tabs 11/02/24 Unknown Rx tablet oxycodone-acetaminophen 5 mg-325 1 tab PO Q6H PRN pain 2 days #8 11/18/24 Unknown Rx mg tablet (Percocet) tabs Allergy/AdvReac Type Severity Reaction Status Date / Time No Known Allergies Allergy Verified 11/18/24 14:20 Family History Father Heart disease Myocardial infarction Mother Anxiety and depression Suicide and self-inflicted injury from suicide age 52. Surgical History Presence of stent in coronary artery History of bilateral cataract extraction History of skin surgery S/P colon polypectomy History of cardiac defibrillator placement History of cholecystectomy History of coronary artery stent placement Social History household members: spouse Smoking Status: Former smoker how long ago did patient quit smokin-1.5 ppd from teen until quit in 2008. alcohol intake: never substance use type: does not use caffeine: Yes ROS <AMRIK Lopes - Last Filed: 11/18/24 19:21> ROS ED Constitutional Constitutional ED: Denies chills or fever(s) Cardiovascular Cardiovascular: Denies chest pain Respiratory/Chest Respiratory/Chest: Denies dyspnea Gastrointestinal Gastrointestinal: Reports abdominal pain; Denies constipation, diarrhea, melena, nausea or vomiting Genitourinary Genitourinary ED: Denies dysuria, hematuria or urinary urgency Musculoskeletal Musculoskeletal: Denies arthralgias or myalgias Integumentary Denies rash Neurologic Neurologic: Denies weakness EXAM <AMRIK Lopes - Last Filed: 11/18/24 19:21> Physical Exam Const Vital Signs: 11/18/24 14:20 11/18/24 16:20 11/18/24 17:16 Temperature 98.5 F 98.7 F 98.7 F Temperature Source Oral Oral Pulse Rate 82 59 L 62 Respiratory Rate 16 18 18 Blood Pressure 122/74 H Blood Pressure Mean 90 Pulse Ox 97 97 97 Oxygen Delivery Method Room Air Room Air Positive well nourished, well developed and no apparent distress General Appearance ED: well developed HEENT Reports normocephalic and head/scalp atraumatic Mouth ED: Yes moist mucous membranes normal Eyes PERRL and EOMs intact bilaterally Neck full ROM and supple Chest Wall inspection of chest normal Resp normal respiratory effort and clear to auscultation bilaterally Cardio regular rate and regular rhythm GI soft to palpation, non-distended and no masses GI Narrative: Tenderness McBurney's point without rigidity or guarding, patient also has left lower quadrant abdominal tenderness on exam. Back/Spine normal ROM and normal to inspection Extremity normal to inspection and full ROM Neuro oriented x3, CN's II-XII intact bilaterally, moves all extremities, no focal motor deficits and no sensory deficits noted Sensorium / Orientation: awake and alert Psych mental status grossly normal and thought process normal Skin no rashes or lesions noted and no wounds <Dr. Jose Jaime DO - Last Filed: 11/18/24 18:31> Physical Exam Const Vital Signs: 11/18/24 14:20 11/18/24 16:20 11/18/24 17:16 Temperature 98.5 F 98.7 F 98.7 F Temperature Source Oral Oral Pulse Rate 82 59 L 62 Respiratory Rate 16 18 18 Blood Pressure 122/74 H Blood Pressure Mean 90 Pulse Ox 97 97 97 Oxygen Delivery Method Room Air Room Air MDM <AMRIK Lopes - Last Filed: 11/18/24 19:21> [facility] Narrative Medical decision making narrative: Patient presenting today with right lower quadrant abdominal pain she has had over the last several days. She does have a history of ischemic colitis and chronic lower abdominal pain, she reports that this pain is different and worse than her usual pain. Her and her have concerns for appendicitis. She does have tenderness across her lower abdomen on exam, worsening signs. Labs will be obtained as well as a CT scan of the abdomen and pelvis to assess for appendicitis, diverticulitis, kidney stone, bowel obstruction, and colitis. Patient given IV Zofran and morphine for pain. Her labs are largely unremarkable. CT scan shows moderate amount of stool throughout the colon and a stable right sided pelvicaliectasis. On reexamination she does report improvement of her symptoms. She reports that she does take MiraLAX daily and occasionally takes Colace. I did discuss having a bowel regimen in place to help with her constipation. She does follow with GI, recommended she follow-up with them/her PCP in the next 5 to 7 days, return instructions discussed and patient discharged home in stable condition. Lab Data Attestation: I reviewed the patient's lab results. Lab results narrative: CBC unremarkable, BUN 27, no transaminitis, no SUJATHA, lipase 29 Labs: Laboratory Results - last 24 hr 11/18/24 11/18/24 14:30 16:49 WBC 6.9 RBC 4.20 Hgb 12.7 Hct 39.2 MCV 93.3 MCH 30.2 MCHC 32.4 RDW Std Deviation 47.0 H RDW Coeff of Edita 13.8 Plt Count 153 MPV 11.7 Immature Gran % (Auto) 0.100 Neut % (Auto) 48.1 Lymph % (Auto) 42.7 H Gordon % (Auto) 6.7 Eos % (Auto) 2.0 Baso % (Auto) 0.4 Absolute Neuts (auto) 3.3 Absolute Lymphs (auto) 2.93 Nucleated RBC % 0 Sodium 138 Potassium 4.4 Chloride 107 Carbon Dioxide 29.0 Anion Gap 3 L BUN 27 H Creatinine 1.02 Est GFR (MDRD) Af Amer 69 Est GFR (MDRD) Non-Af 57 L BUN/Creatinine Ratio 26.5 H Glucose 209 H Calcium 9.2 Total Bilirubin 0.30 AST 19 ALT 21 Alkaline Phosphatase 52 Total Protein 7.4 Albumin 3.6 Globulin 3.8 Albumin/Globulin Ratio 0.9 Lipase 49 Urine Color YELLOW Urine Clarity Clear Urine pH 7.0 Ur Specific Elim 1.005 Urine Protein Negative Urine Glucose (UA) 1000 H Urine Ketones Negative Urine Occult Blood 50 H Urine Nitrite Negative Urine Bilirubin Negative Urine Urobilinogen Normal Ur Leukocyte Esterase Negative Urine RBC 0-5 SEEN Urine WBC 0-5 SEEN Ur Squamous Epith Cells 0-5 SEEN Ur Transition Epith Cell 0-5 SEEN Urine Bacteria 1+ Urine Mucus 0 SEEN Radiography Diagnostic Testing: Clinical Impression(s) from Imaging Studies Abdomen/Pelvis CT 11/18/24 14:36 IMPRESSION: Stable right-sided pelvicaliectasis. Moderate amount of stool throughout the colon. Colonic diverticulosis. Atherosclerosis. Electronically Signed: Linda Martin MD at 16:17 EST , <Dr. Jose Jaime, DO - Last Filed: 11/18/24 18:31> [facility] Lab Data Labs: Laboratory Results - last 24 hr 11/18/24 11/18/24 14:30 16:49 WBC 6.9 RBC 4.20 Hgb 12.7 Hct 39.2 MCV 93.3 MCH 30.2 MCHC 32.4 RDW Std Deviation 47.0 H RDW Coeff of Edita 13.8 Plt Count 153 MPV 11.7 Immature Gran % (Auto) 0.100 Neut % (Auto) 48.1 Lymph % (Auto) 42.7 H Gordon % (Auto) 6.7 Eos % (Auto) 2.0 Baso % (Auto) 0.4 Absolute Neuts (auto) 3.3 Absolute Lymphs (auto) 2.93 Nucleated RBC % 0 Sodium 138 Potassium 4.4 Chloride 107 Carbon Dioxide 29.0 Anion Gap 3 L BUN 27 H Creatinine 1.02 Est GFR (MDRD) Af Amer 69 Est GFR (MDRD) Non-Af 57 L BUN/Creatinine Ratio 26.5 H Glucose 209 H Calcium 9.2 Total Bilirubin 0.30 AST 19 ALT 21 Alkaline Phosphatase 52 Total Protein 7.4 Albumin 3.6 Globulin 3.8 Albumin/Globulin Ratio 0.9 Lipase 49 Urine Color YELLOW Urine Clarity Clear Urine pH 7.0 Ur Specific Elim 1.005 Urine Protein Negative Urine Glucose (UA) 1000 H Urine Ketones Negative Urine Occult Blood 50 H Urine Nitrite Negative Urine Bilirubin Negative Urine Urobilinogen Normal Ur Leukocyte Esterase Negative Urine RBC 0-5 SEEN Urine WBC 0-5 SEEN Ur Squamous Epith Cells 0-5 SEEN Ur Transition Epith Cell 0-5 SEEN Urine Bacteria 1+ Urine Mucus 0 SEEN Radiography Diagnostic Testing: Clinical Impression(s) from Imaging Studies Abdomen/Pelvis CT 11/18/24 14:36 IMPRESSION: Stable right-sided pelvicaliectasis. Moderate amount of stool throughout the colon. Colonic diverticulosis. Atherosclerosis. Electronically Signed: Linda Martin MD at 16:17 EST , Treatment and Re-Evaluation :: I have personally performed a face to face assessment of the patient and have reviewed the LEVI Note. I performed a substantive portion of the visit including all aspects of the following. My dale findings include: History: Patient presents with abdominal pain that has been getting worse over the past 2 days. Patient states she has had abdominal pain for the past few months but has gotten worse over the past couple days. Patient states it has been constant. Patient states it is mainly over her lower abdomen. Patient states she has been using a heating pad which has been helping. states patient took a dose of oxycodone at home which also helped. Patient denies any nausea or vomiting. Patient denies any diarrhea, melena, or hematochezia. Patient denies any urinary complaints. Exam: Vital signs are stable. Patient is afebrile. Patient is in no acute distress. Oral mucosa is pink and somewhat dry. Neck is supple. Trachea is midline. There is no JVD. Heart was regular rate and rhythm. Lungs are clear and equal bilaterally. Abdomen is soft. Bowel sounds are normal. There is tenderness over the lower abdomen. There is no rebound or guarding noted. Cranial nerves II through XII are intact. There are no focal motor or sensory deficits noted. Medical Decision Making: Differential diagnosis includes bowel obstruction, perforation, appendicitis, colitis, dehydration, electrolyte abnormality, urinary tract infection, and pancreatitis. CT scan of the abdomen and pelvis will be obtained to assess for appendicitis, bowel obstruction, and perforation. CBC will be obtained to assess for leukocytosis and anemia. Comprehensive metabolic profile will be obtained to assess for hepatic function, renal function, and electrolyte abnormality. Lipase will be obtained to assess for pancreatitis. Urinalysis will be obtained to assess for urinary tract infection and hematuria. Patient was given morphine and Zofran. CBC was reviewed and was within normal limits. Comprehensive metabolic profile was reviewed. BUN was slightly elevated at 27. Glucose was slightly elevated at 209. The remainder is within normal limits. Lipase was reviewed and was normal at 49. Urinalysis was reviewed. There is no evidence of urinary tract infection or hematuria. CT scan of the abdomen pelvis was obtained. There is no evidence of bowel obstruction or perforation. There was stool throughout the colon. There is no acute abnormality. This was interpreted by the radiologist and was also independently reviewed by myself. Patient was advised of her findings. Patient was instructed to use [id number] laxatives as needed. Patient was instructed to follow-up with her primary care physician in 5 to 7 days. Patient understood and was agreeable with the plan. All questions were answered. Discharge Plan Triage Chief Complaint: Abd Pain ED Midlevel Provider: Breann [facility] ED Provider: Jose Jaime Dx/Rx/DC Orders Clinical Impression: Chronic abdominal pain, Constipation Instructions: Abdominal Pain Prescriptions: New oxycodone-acetaminophen [Percocet] 5-325 mg tablet 1 tab PO Q6H PRN (Reason: pain) 2 Days Qty: 8 0RF No Action dicyclomine 10 mg capsule 20 mg PO TIDAC 90 Days Qty: 540 3RF furosemide 20 mg tablet 20 mg PO QDAY PRN (Reason: for 2lb weight gain) acetaminophen 500 mg tablet 500 mg PO Q6H PRN PRN (Reason: Pain Score 1-10) cyanocobalamin (vitamin B-12) 500 mcg tablet 500 mcg PO DAILY docusate sodium 100 mg capsule 100 mg PO DAILY PRN (Reason: constipation) loratadine [Claritin] 10 mg tablet 10 mg PO DAILY melatonin 10 mg tablet 5 mg PO HS multivitamin Tablet 2 tab PO DAILY escitalopram oxalate 10 mg tablet 10 mg PO DAILY pantoprazole 40 mg tablet,delayed release (DR/EC) 40 mg PO DAILY ferrous sulfate 325 mg (65 mg iron) capsule, extended release PO ascorbic acid (vitamin C) 500 mg tablet 125 mg PO 1000 trazodone 50 MG tablet 50 mg PO DAILY PRN (Reason: Anxiety) clonazepam 1 MG tablet 1 mg PO QHS metoprolol succinate 25 mg tablet extended release 24 hr 12.5 mg PO DAILY cholecalciferol (vitamin D3) 25 mcg (1,000 unit) Tablet 50 mcg PO QHS Qty: 0 0RF Jardiance 10 mg tablet 5 mg PO QDAY aspirin 81 mg tablet,delayed release (DR/EC) 81 mg PO .COMPLEX Rx Instructions: 81 mg orally EVERY OTHER DAY; spironolactone 25 mg tablet 12.5 mg PO .COMPLEX Rx Instructions: 12.5 mg orally every other day; metformin 500 mg tablet extended release 24 hr 500 mg PO DAILY rosuvastatin 20 mg tablet 20 mg PO QHS Entresto 24-26 mg tablet 0.5 tab PO BID oxybutynin chloride 5 mg tablet extended release 24hr 5 mg PO Q OTHER DAY clopidogrel 75 mg Tablet 75 mg PO DAILY Qty: 0 0RF prochlorperazine maleate 5 mg Tablet 10 mg PO Q4H PRN PRN (Reason: Nausea/Vomiting) 30 Days Qty: 120 0RF albuterol sulfate 90 mcg/actuation HFA aerosol inhaler 1 puff inhalation Q6H PRN (Reason: shortness of breath or wheezing) Qty: 8.5 0RF ondansetron 4 mg tablet,disintegrating 4 mg PO Q8H PRN PRN (Reason: Nausea) Qty: 10 0RF Primary Care Provider: Marci Nuñez Referrals: Marci Nuñez, [Primary Care Provider] - Activity Restrictions/Additional Instructions: Follow-up with GI and your PCP. Return for any other concerns. Print Language: Swedish Disposition Disposition: Home, Self Care Discharge Date/Time: 11/18/24 17:18
[2024-11-18] MEDS: Ondansetron 4 MG/2 ML Vial IV (14:44)
[2024-11-18] MEDS: Morphine 4 MG/ML Syringe IV (14:45)
[2024-11-18 15:10] LABS: Absolute Lymphocyte Count 2.93 X10^3/uL (0.83-4.51); Absolute Neutrophil Count 3.3 X10^3/uL (2.0-7.7); Basophil# 0.03 X10^3/uL; Basophil% 0.4 % (0-1); Eosinophil# 0.14 X10^3/uL; Hematocrit 39.2 % (37-47); Hemoglobin 12.7 g/dL (12.0-15.0); Lymphocyte # 2.93 X10^3/ul (0.83-4.51); Lymphocyte % 42.7 % (19-41); Mean Corp Hgb Conc 32.4 g/dL (32-36); Mean Corpuscular Hgb 30.2 pg (27.0-32.0); Mean Corpuscular Volume 93.3 fL (81-99); Mean Platelet Vol. 11.7 fl (6.2-12.0); Monocyte# 0.46 X10^3/uL; Monocyte% 6.7 % (0-10); NRBC Flagged by Analyzer 0 % (0-5); Neutrophil # 3.29 X10^3/uL (2.7-7.7); Neutrophil % 48.1 % (47-70); Platelet Count 153 K/mm3 (150-450); RBC Distribution Width CV 13.8 % (11.6-14.6); White Blood Count 6.9 K/mm3 (4.4-11.0)
[2024-11-18 15:26] LABS: ALB/GLOB Ratio 0.9 RATIO (0.9-2.4); AST(SGOT) 19 U/L (15-37); Alanine Aminotransfer ALT/SGPT 21 U/L (13-56); Albumin, Serum 3.6 g/dL (3.2-5.0); Alkaline Phosphatase 52 U/L (45-117); Anion Gap 3 (5-15); BUN 27 mg/dL (7-18); BUN/Creat Ratio 26.5 RATIO (10-20); Calcium,Total 9.2 mg/dL (8.5-10.1); Chloride 107 mmol/L (98-107); Creatinine, Serum 1.02 mg/dL (0.55-1.02); EST Glomerular Filtration Rate 57 mL/min (>60); Est Glom Filt Rate - Afr Amer 69 mL/min (>60); Globulin 3.8 g/dL (2.2-4.2); Glucose 209 mg/dL (74-106); Lipase 49 U/L (13-75); Potassium 4.4 mmol/L (3.5-5.1); Protein, Total 7.4 g/dL (6.4-8.2); Sodium Level 138 mmol/L (136-145)
[2024-11-18 16:20] VITALS: PULSE 59; RESP 18; TEMP 37.1; O2SAT 97
[2024-11-18 16:56] LABS: Mucous, Urine 0 SEEN /hpf (<or=2+)
[2024-11-18 16:58] LABS: Glucose, Dipstick 1000 mg/dl (Normal); Ketone-Dipstick Negative (Negative); Leukocyte Esterase-Dipstick Negative /ul (Negative); Nitrite-Dipstick Negative (Negative); Occult Blood-Urine 50 /ul (Negative); Protein-Dipstick Negative (Negative); Specific Gravity, Urine 1.005 (1.002-1.030); Urine Bilirubin Dipstick Negative (Negative); Urine Clarity Clear (Clear); Urine Urobilinogen Normal (Normal)
[2024-11-18 17:02] LABS: Color, Urine YELLOW (Yellow)
[2024-11-18 17:06] LABS: Bacteria 1+ /hpf (None Seen); Red Blood Cells-Urine 0-5 SEEN /hpf (0-5)
[2024-11-18 17:07] LABS: Transitional Epithelial - Ur 0-5 SEEN /hpf (0-5); White Blood Cells 0-5 SEEN /hpf (0-5)
[2024-11-18 17:08] LABS: Squamous Epithelial Cells - UA 0-5 SEEN /hpf (5-10)
[2024-11-18 17:16] VITALS: PULSE 62; RESP 18; TEMP 37.1; O2SAT 97
== END 2024-11-18 17:18 | disposition home or self-care (01) ==
PROVIDERS: Physician Assistant; Emergency Provider Emergency Medicine; PCP Family Medicine; Visit Provider Emergency Medicine
DX: R10.9 Unspecified abdominal pain (principal); I13.0 Hypertensive heart and chronic kidney disease with heart failure and stage 1 through stage 4 chronic kidney disease, or unspecified chronic kidney disease; I50.22 Chronic systolic (congestive) heart failure; E11.22 Type 2 diabetes mellitus with diabetic chronic kidney disease; E11.40 Type 2 diabetes mellitus with diabetic neuropathy, unspecified; G89.29 Other chronic pain; K59.00 Constipation, unspecified; I25.10 Atherosclerotic heart disease of native coronary artery without angina pectoris; Z87.891 Personal history of nicotine dependence; E78.00 Pure hypercholesterolemia, unspecified; K21.9 Gastro-esophageal reflux disease without esophagitis; N18.9 Chronic kidney disease, unspecified
CPT/HCPCS: 74177; 80053; 81001; 83690; 85025; 96374; 96375; 99282; Q9967; A4216; J2405

== ENCOUNTER → 2024-12-15 | Outpatient (CLI) | payer MEDICARE, SELFPAY ==
[2024-12-18 15:07] LABS: Pancreatic Elastase, Fecal 416 (>200)
[2024-12-20 08:09] LABS: Calprotectin, Stool 190 ug/g (0-120)
== END | disposition home or self-care (01) ==
LOC: LABSPEC 13:37
PROVIDERS: PCP Family Medicine; Referring Provider Student in an Organized Health Care Education/Training Program; Visit Provider Student in an Organized Health Care Education/Training Program
DX: R10.9 Unspecified abdominal pain (principal)
CPT/HCPCS: 82653; 83993

== ENCOUNTER → 2024-12-22 | Outpatient (CLI) | payer MEDICARE, SELFPAY ==
--- NOTE | 2024-12-22 10:45 | MRI_ITS ---
PROCEDURE: MRA NECK WITH AND W/O CONTRAST REASON FOR EXAM: Bilateral carotid artery stenosis. Fatigue. Weakness. Dizziness. TECHNIQUE: Neck MRA using 2D and 3D Time of Flight technique and with intravenous gadolinium-based contrast. CONTRAST: 12 cc of Clariscan COMPARISON: Prior CTA neck dated 10/07/2023 FINDINGS: Flow: 2D Time of Flight images demonstrate antegrade carotid and vertebral artery flow. Carotids: No evidence of significant stenosis on time of flight or postcontrast images. Right ICA stenosis (NASCET): Trace atherosclerotic plaque formation within the origin of the right ICA, with less than 15% luminal stenosis. Left ICA stenosis (NASCET): Trace atherosclerotic plaque formation within the origin of the left ICA, with less than 15% luminal stenosis. Vertebrals: Right vertebral artery is dominant, without evidence of high grade stenosis. Arch: Mild atherosclerotic plaque formation within the origin of the left common carotid artery, with approximately 15% luminal stenosis. No hemodynamically significant stenosis identified at the arch vessel origins, brachiocephalic or proximal subclavian arteries. MRI/MRA Neck WITH and W/O Contrast IMPRESSION: 1. Trace atherosclerotic plaque formation within the origin of the bilateral IC As with less than 15% luminal stenosis. No hemodynamically significant stenosis is identified. 2. Right vertebral artery is dominant. Reading [facility]
[2024-12-22 11:10] VITALS: BP 124/60; PULSE 85; RESP 14; O2SAT 96
[2024-12-22 11:20] VITALS: BP 127/76; PULSE 85; RESP 14; O2SAT 98
[2024-12-22 11:30] VITALS: BP 117/75; PULSE 85; RESP 16; O2SAT 99
--- NOTE | 2024-12-22 15:07 | US_ITS ---
PROCEDURE: PELVIC (NON ) REASON FOR EXAM: Pain COMPARISON: None. FINDINGS Uterus is anteverted and demonstrates atrophy with calcifications with no focal masses. Nonvisualization of the bilateral ovaries. Endometrium is slightly hyperechoic and nonspecific although normal in thickness measuring 3.6 mm. The cervix is normal. No fluid in the cul-de-sac. US/Pelvic (Non ) IMPRESSION: Limited exam as documented by the technologist. Atrophied uterus with calcific ations. Focal area of interest scanned as documented by the patient corresponds to normal bowel. Further clinical correl ation advised. Reading Location: [facility]
== END | disposition home or self-care (01) ==
LOC: MRI 09:56
PROVIDERS: PCP Family Medicine; Referring Provider Family Medicine; Visit Provider Family Medicine
DX: I65.23 Occlusion and stenosis of bilateral carotid arteries (principal); R10.9 Unspecified abdominal pain; R10.2 Pelvic and perineal pain
CPT/HCPCS: 70549; 76856; A9575; A4216

== ENCOUNTER 2025-03-10 11:27 | Emergency (ER) | payer MEDICARE, SELFPAY ==
[2025-03-10 11:27] VITALS: BP 114/75; PULSE 69; RESP 18; TEMP 36.6; O2SAT 95
[2025-03-10 11:28] VITALS: BMI 20.9
--- NOTE | 2025-03-10 11:40 | EKG12_ITS ---
Test Reason : FALL Blood Pressure : */* mmHG Vent. Rate : 64 BPM Atrial Rate : 64 BPM P-R Int : 124 ms QRS Dur : 114 ms QT Int : 486 ms P-R-T Axes : 37 98 57 degrees QTcB Int : 501 ms Atrial-sensed ventricular-paced rhythm Biventricular pacemaker detected Abnormal ECG Confirmed by MOY MORENO, ALEXANDER ([id number]), fan mail editor CRESCENCIO BERRY ([id number]) on 03/12/2025 8:34:27 AM Referred By: Confirmed By: ALEXANDER WINTER MD
--- NOTE | 2025-03-10 11:42 | EX.ED.DYSGE1 ---
HPI <AMRIK Harrison - Last Filed: 03/10/25 13:56> History of Present Illness Chief Complaint: Fall Narrative Narrative: 68-year-old female with PMH of HTN, HLD, CVA, CAD, pacemaker, GI bleed, ischemic colitis, CKD presents with left hip pain. Yesterday around 6 PM she got up from lying down and walked into another room and felt lightheaded and fell landing on her left hip. She denies head injury or LOC. She states about 2-3 times a month when she gets up too quickly she feels lightheaded. She was able to ambulate after the injury but today is having increased pain in the left hip/buttock area. She can get around with her 's walker. She saw her primary care doctor who recommended she come in for an x-ray. Patient denies recent fever, chills, chest pain, shortness of breath, palpitations, vomiting, diarrhea, bloody stool, urinary symptoms. She is on aspirin and Plavix. PFSH <AMRIK Harrison - Last Filed: 03/10/25 13:56> [facility] Medical History (Updated 03/10/25 @ 13:11 by AMRIK Harrison) Ischemic colitis History of left heart catheterization History of mechanical ventilation Cardiogenic pulmonary edema Acute hypoxic respiratory failure Multiple lung nodules Major depressive disorder Left bundle branch block NSTEMI (non-ST elevated myocardial infarction) GERD (gastroesophageal reflux disease) Diabetic peripheral vascular disease Diabetic nephropathy Chronic kidney disease (CKD) Bleeding ulcer Anxiety Dyslipidemia Chronic systolic heart failure Pacemaker Congestive heart failure (CHF) Cerebral palsy Anxiety and depression Heart failure with reduced ejection fraction Insomnia Transient ischemic attack AV node dysfunction Ischemic cardiomyopathy Presence of biventricular implantable cardioverter-defibrillator Ulcer Restless legs High cholesterol Former smoker ICD (implantable cardioverter-defibrillator) in place Coronary artery disease CVA (cerebral vascular accident) PFO (patent foramen ovale) Cardiac resynchronization therapy defibrillator ([employer]-D) in place Myocarditis Hyperlipidemia Hypertension Home Medications ?Medication ?Instructions ?Recorded ?Last Taken ?Type clonazepam 1 mg tablet 1 mg PO QHS anxiety 11/18/14 07/02/24 History trazodone 50 mg tablet 50 mg PO DAILY PRN Anxiety 11/18/14 07/02/24 History cholecalciferol (vitamin D3) 25 50 mcg (2 x 25 mcg (1,000 unit)) 09/30/23 07/02/24 Rx mcg (1,000 unit) tablet PO QHS supplement #0 tabs aspirin 81 mg tablet,delayed 81 mg PO .COMPLEX heart 10/01/23 07/02/24 History release rosuvastatin 20 mg tablet 20 mg PO QHS cholesterol 02/21/24 07/02/24 History clopidogrel 75 mg tablet 75 mg PO DAILY #0 tabs 03/13/24 07/02/24 Rx acetaminophen 500 mg tablet 500 mg PO Q6H PRN PRN Pain Score 06/13/24 07/01/24 History 1-10 docusate sodium 100 mg capsule 100 mg PO DAILY PRN constipation 06/13/24 07/02/24 History furosemide 20 mg tablet 20 mg PO QDAY PRN for 2lb weight 06/13/24 06/19/24 History gain pantoprazole 40 mg tablet,delayed 40 mg PO DAILY 07/17/24 Unknown History release baclofen 5 mg tablet 5 mg PO QDAY muscle spasms 08/03/24 Unknown History albuterol sulfate 90 mcg/actuation 1 puff inhalation Q6H PRN 09/09/24 Unknown Rx aerosol inhaler shortness of breath or wheezing #8.5 grams escitalopram oxalate 5 mg tablet 5 mg PO QDAY 11/28/24 Unknown History polyethylene glycol 3350 17 17 g PO BID 11/28/24 Unknown History gram/dose oral powder (Miralax) linaclotide 72 mcg capsule 72 mcg PO QAM #90 caps 12/12/24 Unknown Rx (Linzess) metformin 500 mg tablet 500 mg PO QDAY 01/18/25 Unknown History metoprolol succinate 25 mg 25 mg PO QDAY 01/18/25 Unknown History tablet,extended release 24 hr (Toprol XL) lamotrigine 100 mg tablet 100 mg PO QDAY 01/23/25 Unknown History polyethylene glycol 400 0.25 % eye drp ophthalmic (eye) 01/23/25 Unknown History gel drops (Blink Gel Tears) ferrous sulfate 325 mg (65 mg 325 mg PO QDAY 02/13/25 Unknown History iron) tablet (Feosol) linaclotide 145 mcg capsule 145 mcg PO QAM #60 caps 02/14/25 Unknown Rx (Linzess) hyoscyamine sulfate 0.125 mg tablet 0.125 mg PO TID PRN dyspepsia #90 03/05/25 Unknown Rx tabs Allergy/AdvReac Type Severity Reaction Status Date / Time No Known Allergies Allergy Verified 03/10/25 11:28 Family History Father Heart disease Myocardial infarction Mother Anxiety and depression Suicide and self-inflicted injury from suicide age 52. Surgical History Presence of stent in coronary artery History of bilateral cataract extraction History of skin surgery S/P colon polypectomy History of cardiac defibrillator placement History of cholecystectomy History of coronary artery stent placement Social History (Updated 02/13/25 @ 09:14 by Ericka Alfonso) household members: spouse Smoking Status: Former smoker how long ago did patient quit smokin-1.5 ppd from teen until quit in 2008. alcohol intake: never substance use type: does not use caffeine: Yes seatbelt use: always do you feel safe at home: Yes additional social history: - Cuate ROS <AMRIK Harrison - Last Filed: 03/10/25 13:56> ROS ED ROS Narrative Constitutional: Negative for fever, chills, malaise. CVS: Negative for palpitations, chest pain, syncope. Respiratory: Negative for shortness of breath, cough. GI: Negative for abdominal pain, nausea, vomiting. EXAM <AMRIK Harrison - Last Filed: 03/10/25 13:56> Physical Exam Narrative Exam Narrative: CONST: Patient sitting in no acute distress. EYES: Normal inspection. NECK: Normal inspection. RESP: No respiratory distress, CTAB. CVS: Regular rate and rhythm, no murmur, no gallop. ABD: Soft and nontender, no guarding or rebound, nondistended. Pelvis: Stable, nontender. Back: Normal inspection, no midline tenderness. SKIN: Color normal, no rash, warm, dry, intact. EXTREMITIES: Normal appearance with full range of motion of upper and lower extremities. No shortening or rotation, slight pain palpation of the left ischial tuberosity, no pain over the greater trochanter or femur. 2+ radial and DP pulses. NEURO: Alert and answering questions appropriately. PSYCH: Normal affect. Const Vital Signs: 03/10/25 11:27 03/10/25 11:55 03/10/25 13:00 Temperature 97.8 F Temperature Source Oral Pulse Rate 69 Respiratory Rate 18 Respiratory Effort Non-Labored Blood Pressure 114/75 146/62 H Blood Pressure Mean 88 80 Pulse Ox 95 93 Oxygen Delivery Method Room Air <Dr. Jose Jaime DO - Last Filed: 03/10/25 14:00> Physical Exam Const Vital Signs: 03/10/25 11:27 03/10/25 11:55 03/10/25 13:00 Temperature 97.8 F Temperature Source Oral Pulse Rate 69 Respiratory Rate 18 Respiratory Effort Non-Labored Blood Pressure 114/75 146/62 H Blood Pressure Mean 88 80 Pulse Ox 95 93 Oxygen Delivery Method Room Air MDM <AMRIK Harrison - Last Filed: 03/10/25 13:56> MDM MDM Narrative Medical decision making narrative: History gathered from: Patient and spouse Patient presents with left hip pain after fall. States she felt briefly lightheaded prior to the fall. She is able to bear weight. No head injury. She is awake alert in no distress. Vital signs stable. Her exam overall is unremarkable. Both lower extremities are symmetric with full range of motion and are neurovascular intact. She has mild tenderness over the left hip and ischium. EKG shows paced rhythm unchanged from previous. Globin is 11, previous 11.9. Patient has no current signs of GI bleed but states she is scheduled for an upper and lower scope to evaluate her anemia. BMP unremarkable. Urinalysis negative for infection. Left hip x-ray negative. She has oxycodone to take at home as needed but had not taken anything this morning so I gave her 1 dose here. She has a walker to use and was instructed to follow-up with her primary care. She was discharged in stable condition. Lab Data Attestation: I reviewed the patient's lab results. Labs: Laboratory Results - last 24 hr 03/10/25 03/10/25 11:52 12:46 WBC 6.4 RBC 3.56 L Hgb 11.0 L Hct 32.2 L MCV 90.4 MCH 30.9 MCHC 34.2 RDW Std Deviation 42.3 RDW Coeff of Edita 12.8 Plt Count 148 L MPV 11.0 Immature Gran % (Auto) 0.300 Neut % (Auto) 61.9 Lymph % (Auto) 25.4 [place] % (Auto) 8.3 Eos % (Auto) 3.8 Baso % (Auto) 0.3 Absolute Neuts (auto) 3.9 Absolute Lymphs (auto) 1.61 Nucleated RBC % 0 Sodium 140 Potassium 4.3 Chloride 106 Carbon Dioxide 22.8 Anion Gap 11 BUN 20 H Creatinine 0.97 Estim Creat Clear Calc 51.73 Est GFR (MDRD) Non-Af 62 BUN/Creatinine Ratio 20.1 H Glucose 139 H Calcium 9.1 Urine Color Yellow Urine Clarity Clear Urine pH 6.0 Ur Specific [place] 1.015 Urine Protein 15 H Urine Glucose (UA) Normal Urine Ketones Negative Urine Occult Blood Negative Urine Nitrite Negative Urine Bilirubin Negative Urine Urobilinogen Normal Ur Leukocyte Esterase 500 H Urine RBC 0 SEEN Urine WBC 0-5 SEEN Ur Squamous Epith Cells 0 SEEN Urine Bacteria 0 SEEN Urine Mucus 0 SEEN Radiography Diagnostic Testing: Clinical Impression(s) from Imaging Studies Hip/Pelvis X-Ray 03/10/25 12:05 IMPRESSION: Negative left hip radiographs. Reading Location: [facility] EKG Initial EKG: Attestation: I personally reviewed and interpreted this EKG as follows: Comments: Atrial paced ventricular sensed rhythm at 64 bpm <Dr. Jose Jaime, DO - Last Filed: 03/10/25 14:00> [facility] Lab Data Labs: Laboratory Results - last 24 hr 03/10/25 03/10/25 11:52 12:46 WBC 6.4 RBC 3.56 L Hgb 11.0 L Hct 32.2 L MCV 90.4 MCH 30.9 MCHC 34.2 RDW Std Deviation 42.3 RDW Coeff of Edita 12.8 Plt Count 148 L MPV 11.0 Immature Gran % (Auto) 0.300 Neut % (Auto) 61.9 Lymph % (Auto) 25.4 [place] % (Auto) 8.3 Eos % (Auto) 3.8 Baso % (Auto) 0.3 Absolute Neuts (auto) 3.9 Absolute Lymphs (auto) 1.61 Nucleated RBC % 0 Sodium 140 Potassium 4.3 Chloride 106 Carbon Dioxide 22.8 Anion Gap 11 BUN 20 H Creatinine 0.97 Estim Creat Clear Calc 51.73 Est GFR (MDRD) Non-Af 62 BUN/Creatinine Ratio 20.1 H Glucose 139 H Calcium 9.1 Urine Color Yellow Urine Clarity Clear Urine pH 6.0 Ur Specific [place] 1.015 Urine Protein 15 H Urine Glucose (UA) Normal Urine Ketones Negative Urine Occult Blood Negative Urine Nitrite Negative Urine Bilirubin Negative Urine Urobilinogen Normal Ur Leukocyte Esterase 500 H Urine RBC 0 SEEN Urine WBC 0-5 SEEN Ur Squamous Epith Cells 0 SEEN Urine Bacteria 0 SEEN Urine Mucus 0 SEEN Radiography Diagnostic Testing: Clinical Impression(s) from Imaging Studies Hip/Pelvis X-Ray 03/10/25 12:05 IMPRESSION: Negative left hip radiographs. Reading Location: [facility] Treatment and Re-Evaluation :: I have personally performed a face to face assessment of the patient and have reviewed the LEVI Note. I performed a substantive portion of the visit including all aspects of the following. My dale findings include: History: Patient presents with left hip pain that began after a fall. Patient states she missed a step yesterday and fell onto her left hip. Patient states her pain is worse today. Patient states her pain is worse with any weightbearing or ambulation. Patient denies any paresthesias or weakness. Patient denies any head injury or loss of consciousness. Exam: Vital signs are stable. Patient is afebrile. Patient is in no acute distress. Oral mucosa is pink and moist. Neck is supple. Trachea is midline. There is no JVD. Heart was regular rate and rhythm. Lungs are clear and equal bilaterally. Abdomen is soft. Bowel sounds are normal. There is no tenderness. There is tenderness over the lateral aspect of the left hip. There is no deformity noted. Range of motion is slightly limited in internal and external rotation secondary to pain. Strength is 5/5 bilaterally in the lower extremities. There are no sensory deficits noted. Cranial nerves II through XII are intact. Medical Decision Making: Differential diagnosis includes cardiac dysrhythmia, cardiac ischemia, syncope, electrolyte abnormality, dehydration, anemia, hip fracture, and contusion. X-rays of the left hip will be obtained to assess for fracture and contusion. EKG will be obtained to assess for cardiac dysrhythmia and cardiac ischemia. CBC will be obtained to assess for leukocytosis and anemia. Basic metabolic profile will be obtained to assess for electrolyte abnormality and renal function. Urinalysis will be obtained to assess for urinary tract infection and hematuria. EKG was obtained. On my independent interpretation, it showed a atrial sensed ventricular paced rhythm with a rate of 64. NM interval was normal at 124 ms. QRS interval was normal at 114 ms. QTc interval was borderline at 501 ms. [place] was normal. There are no acute ST or T wave changes. This was unchanged compared to previous EKG dated 11/02/2024. CBC was reviewed. Hemoglobin was slightly low at 11.0 and hematocrit was 32.2. Platelets were slightly low at 148. Basic metabolic profile was reviewed. Glucose was slightly elevated at 139. BUN was slightly elevated at 20. The remainder is within normal limits. Urinalysis was reviewed. Leukocyte esterase was 500. There are no white blood cells noted. There is no bacteria noted. X-rays of the left hip were obtained. There are 3 views. On my interpretation, there is no acute fracture or dislocation. Radiologist also interpreted the x-rays and agrees. Patient was feeling better on reevaluation. Patient wants to go home. Patient was instructed to follow-up with her primary care physician in 5 to 7 days. Patient understood and was agreeable with the plan. All questions were answered. Discharge Plan Triage Chief Complaint: Fall ED Midlevel Provider: Shakila Cabrera ED Provider: Jose Jaime Dx/Rx/DC Orders Clinical Impression: Contusion of left hip, Lightheadedness Instructions: Bruises (Contusions) Prescriptions: No Action furosemide 20 mg tablet 20 mg PO QDAY PRN (Reason: for 2lb weight gain) acetaminophen 500 mg tablet 500 mg PO Q6H PRN PRN (Reason: Pain Score 1-10) docusate sodium 100 mg capsule 100 mg PO DAILY PRN (Reason: constipation) pantoprazole 40 mg tablet,delayed release (DR/EC) 40 mg PO DAILY metformin 500 mg tablet 500 mg PO QDAY metoprolol succinate [Toprol XL] 25 mg tablet extended release 24 hr 25 mg PO QDAY Blink Gel Tears 0.25 % drops,gel ophthalmic (eye) lamotrigine 100 mg tablet 100 mg PO QDAY escitalopram oxalate 5 mg tablet 5 mg PO QDAY polyethylene glycol 3350 [Miralax] 17 gram/dose powder 17 g PO BID Linzess 72 mcg capsule 72 mcg PO QAM Qty: 90 1RF ferrous sulfate [Feosol] 325 mg (65 mg iron) tablet 325 mg PO QDAY Linzess 145 mcg capsule 145 mcg PO QAM Qty: 60 2RF trazodone 50 MG tablet 50 mg PO DAILY PRN (Reason: Anxiety) clonazepam 1 MG tablet 1 mg PO QHS cholecalciferol (vitamin D3) 25 mcg (1,000 unit) Tablet 50 mcg PO QHS Qty: 0 0RF aspirin 81 mg tablet,delayed release (DR/EC) 81 mg PO .COMPLEX Rx Instructions: 81 mg orally EVERY OTHER DAY; rosuvastatin 20 mg tablet 20 mg PO QHS baclofen 5 mg tablet 5 mg PO QDAY Patient Comments: PLEASE SEE ATTACHED FOR DETAILED DIRECTIONS clopidogrel 75 mg Tablet 75 mg PO DAILY Qty: 0 0RF albuterol sulfate 90 mcg/actuation HFA aerosol inhaler 1 puff inhalation Q6H PRN (Reason: shortness of breath or wheezing) Qty: 8.5 0RF hyoscyamine sulfate 0.125 mg tablet 0.125 mg PO TID PRN (Reason: dyspepsia) Qty: 90 2RF Primary Care Provider: Marci Nuñez Referrals: Marci Nuñez, [Primary Care Provider] - Activity Restrictions/Additional Instructions: You can take [id number] pain relievers or your oxycodone as needed for breakthrough pain. Follow-up with your primary care doctor Print Language: Citizen Of [place] Disposition Disposition: Home, Self Care
[2025-03-10 12:05] LABS: Absolute Lymphocyte Count 1.61 X10^3/uL (0.83-4.51); Absolute Neutrophil Count 3.9 X10^3/uL (2.0-7.7); Basophil# 0.02 X10^3/uL; Basophil% 0.3 % (0-1); Eosinophil# 0.24 X10^3/uL; Eosinophils% 3.8 % (0-5); Hematocrit 32.2 % (37-47); Lymphocyte # 1.61 X10^3/ul (0.83-4.51); Lymphocyte % 25.4 % (19-41); Mean Corp Hgb Conc 34.2 g/dL (32-36); Mean Corpuscular Hgb 30.9 pg (27.0-32.0); Mean Corpuscular Volume 90.4 fL (81-99); Monocyte# 0.53 X10^3/uL; Monocyte% 8.3 % (0-10); NRBC Flagged by Analyzer 0 % (0-5); Neutrophil # 3.93 X10^3/uL (2.7-7.7); Neutrophil % 61.9 % (47-70); Platelet Count 148 K/mm3 (150-450); RBC Distribution Width CV 12.8 % (11.6-14.6); RBC Distribution Width SD 42.3 fl (35.1-43.9); Red Blood Count 3.56 M/mm3 (4.2-5.4); White Blood Count 6.4 K/mm3 (4.4-11.0)
--- NOTE | 2025-03-10 12:05 | RAD_ITS ---
PROCEDURE: HIP, UNI W/ PELVIS 2-3 VIEWS 03/10/2025 REASON FOR EXAM: PAIN TECHNIQUE: 2 views of the left hip with AP pelvis COMPARISON: CT abdomen pelvis 10/2024. FINDINGS: Bones: No acute fracture or subluxation. No aggressive osseous lesions. Joints: Normal alignment. Mild degenerative changes. Soft tissues: Soft tissues are unremarkable. Other: The visualized bowel loops are normal caliber. RAD/HIP, UNI W/ Pelvis 2-3 Views IMPRESSION: Negative left hip radiographs. Reading Location: [id number]
[2025-03-10] MEDS: oxyCODONE 5 MG Tablet PO (12:48)
[2025-03-10 12:53] LABS: Bacteria 0 SEEN /hpf (None Seen); Mucous, Urine 0 SEEN /hpf (<or=2+); Red Blood Cells-Urine 0 SEEN /hpf (0-5); Squamous Epithelial Cells - UA 0 SEEN /hpf (5-10)
[2025-03-10 13:00] VITALS: BP 146/62; O2SAT 93
[2025-03-10 13:02] LABS: Color, Urine Yellow (Yellow); Glucose, Dipstick Normal (Normal); Ketone-Dipstick Negative (Negative); Leukocyte Esterase-Dipstick 500 /ul (Negative); Nitrite-Dipstick Negative (Negative); Occult Blood-Urine Negative /ul (Negative); Protein-Dipstick 15 mg/dl (Negative); Specific Gravity, Urine 1.015 (1.002-1.030); Urine Bilirubin Dipstick Negative (Negative); Urine Clarity Clear (Clear); Urine Urobilinogen Normal (Normal)
[2025-03-10 13:09] LABS: White Blood Cells 0-5 SEEN /hpf (0-5)
[2025-03-10 13:45] LABS: Anion Gap 11 (5-15); BUN 20 mg/dL (4-19); BUN/Creat Ratio 20.1 RATIO (10-20); Calcium,Total 9.1 mg/dL (7.6-11.0); Carbon Dioxide 22.8 mmol/L (21.0-32.0); Chloride 106 mmol/L (98-108); Creatinine, Serum 0.97 mg/dL (0.70-1.20); EST Glomerular Filtration Rate 62 (>60); Estimated Creatinine Clearance 51.73 ml/min (50-250); Glucose 139 mg/dL (70-99); Potassium 4.3 mmol/L (3.3-5.1); Sodium Level 140 mmol/L (133-145)
[2025-03-10 14:00] VITALS: BP 151/70; PULSE 60; RESP 18; O2SAT 97
== END 2025-03-10 14:16 | disposition home or self-care (01) ==
PROVIDERS: Physician Assistant; Emergency Provider Emergency Medicine; PCP Family Medicine; Visit Provider Emergency Medicine
DX: S70.02XA Contusion of left hip, initial encounter (principal); I13.0 Hypertensive heart and chronic kidney disease with heart failure and stage 1 through stage 4 chronic kidney disease, or unspecified chronic kidney disease; I50.22 Chronic systolic (congestive) heart failure; E11.22 Type 2 diabetes mellitus with diabetic chronic kidney disease; Z79.82 Long term (current) use of aspirin; E78.00 Pure hypercholesterolemia, unspecified; R42 Dizziness and giddiness; Z79.02 Long term (current) use of antithrombotics/antiplatelets; M25.552 Pain in left hip; Z87.891 Personal history of nicotine dependence; N18.9 Chronic kidney disease, unspecified; I25.10 Atherosclerotic heart disease of native coronary artery without angina pectoris; Z86.73 Personal history of transient ischemic attack (TIA), and cerebral infarction without residual deficits; Z95.0 Presence of cardiac pacemaker; W19.XXXA Unspecified fall, initial encounter; K21.9 Gastro-esophageal reflux disease without esophagitis
CPT/HCPCS: 73502; 80048; 81001; 85025; 93005; 99282; A4216

== ENCOUNTER 2025-04-19 03:34 | Observation (INO) | payer MEDICARE, SELFPAY ==
[2025-04-19] VITALS (14 sets, daily range): BP systolic 123–193; BP diastolic 40–111; PULSE 63–79; RESP 16–22; TEMP 36.6–37.5; O2SAT 96–99; BMI 21.6; BMI 20.7
--- NOTE | 2025-04-19 04:05 | EKG12_ITS ---
Test Reason : SOB Blood Pressure : */* mmHG Vent. Rate : 80 BPM Atrial Rate : 80 BPM P-R Int : 114 ms QRS Dur : 114 ms QT Int : 438 ms P-R-T Axes : 22 95 39 degrees QTcB Int : 505 ms Atrial-sensed ventricular-paced rhythm Biventricular pacemaker detected Abnormal ECG Confirmed by Joo Christine ([id number]), editor news CRESCENCIO BERRY ([id number]) on 04/23/2025 11:35:25 AM Referred By: SUNNY Confirmed By: Joo Christine
[2025-04-19] MEDS: 0.9% Normal Saline (1000mL) 1,000 ML 999 ML IV (04:14)
[2025-04-19 04:32] LABS: Absolute Neutrophil Count 6.8 X10^3/uL (2.0-7.7); Basophil# 0.03 X10^3/uL; Basophil% 0.3 % (0-1); Eosinophil# 0.22 X10^3/uL; Eosinophils% 2.5 % (0-5); Hematocrit 30.8 % (37-47); Hemoglobin 10.4 g/dL (12.0-15.0); Lymphocyte % 10.4 % (19-41); Mean Corp Hgb Conc 33.8 g/dL (32-36); Mean Corpuscular Hgb 31.3 pg (27.0-32.0); Mean Corpuscular Volume 92.8 fL (81-99); Mean Platelet Vol. 10.8 fl (6.2-12.0); Monocyte# 0.71 X10^3/uL; Monocyte% 8.2 % (0-10); NRBC Flagged by Analyzer 0 % (0-5); Neutrophil # 6.79 X10^3/uL (2.7-7.7); Neutrophil % 78.3 % (47-70); Platelet Count 189 K/mm3 (150-450); RBC Distribution Width CV 13.3 % (11.6-14.6); RBC Distribution Width SD 44.9 fl (35.1-43.9); Red Blood Count 3.32 M/mm3 (4.2-5.4); White Blood Count 8.7 K/mm3 (4.4-11.0)
[2025-04-19 04:38] LABS: Bacteria 0 SEEN /hpf (None Seen); Mucous, Urine 0 SEEN /hpf (<or=2+); Red Blood Cells-Urine 0 SEEN /hpf (0-5); Squamous Epithelial Cells - UA 0 SEEN /hpf (5-10); White Blood Cells 0 SEEN /hpf (0-5)
[2025-04-19 04:47] LABS: Magnesium 1.6 mg/dL (1.5-2.2)
[2025-04-19 04:55] LABS: Anion Gap 10 (5-15); BUN 20 mg/dL (4-19); BUN/Creat Ratio 19.3 RATIO (10-20); Carbon Dioxide 25.9 mmol/L (21.0-32.0); Chloride 99 mmol/L (98-108); Creatinine, Serum 1.02 mg/dL (0.70-1.20); EST Glomerular Filtration Rate 58 (>60); Estimated Creatinine Clearance 50.29 ml/min (50-250); Glucose 229 mg/dL (70-99); Potassium 4.4 mmol/L (3.3-5.1); Sodium Level 135 mmol/L (133-145)
[2025-04-19 05:03] LABS: Color, Urine Yellow (Yellow); Glucose, Dipstick 100 mg/dl (Normal); Ketone-Dipstick Negative (Negative); Leukocyte Esterase-Dipstick Negative /ul (Negative); Nitrite-Dipstick Negative (Negative); Occult Blood-Urine Negative /ul (Negative); Protein-Dipstick 15 mg/dl (Negative); Urine Bilirubin Dipstick Negative (Negative); Urine Clarity Clear (Clear); Urine Urobilinogen Normal (Normal); Urine pH 6.5 (5.0 - 8.0)
--- NOTE | 2025-04-19 06:13 | EX.ED.DYSGE1 ---
HPI History of Present Illness Chief Complaint: Weakness Informant: patient and spouse/S.O. Narrative Narrative: Patient is a 70-year-old female with past medical history of ischemic colitis hyperlipidemia hypertension and previous CVA. The patient typically walks with a walker at baseline. states that she has not been eating or drinking well for multiple weeks. This evening/morning the patient was too weak to get out of bed on her own. She typically uses a walker to ambulate and even at home with the help of the walker she was too weak to support herself. The patient and state that there has been no changes to her home medication that she has been taking them as directed. The patient denies any fevers or chills but does states she has had irritation with urination which makes her concerned for a UTI. Therefore at this time with her increasing generalized weakness and her inability to ambulate on her own at her baseline and concern for developing infection she was brought in for evaluation [facility] Medical History Ischemic colitis History of left heart catheterization History of mechanical ventilation Cardiogenic pulmonary edema Acute hypoxic respiratory failure Multiple lung nodules Major depressive disorder Left bundle branch block NSTEMI (non-ST elevated myocardial infarction) GERD (gastroesophageal reflux disease) Diabetic peripheral vascular disease Diabetic nephropathy Chronic kidney disease (CKD) Bleeding ulcer Anxiety Dyslipidemia Chronic systolic heart failure Pacemaker Congestive heart failure (CHF) Cerebral palsy Anxiety and depression Heart failure with reduced ejection fraction Insomnia Transient ischemic attack AV node dysfunction Ischemic cardiomyopathy Presence of biventricular implantable cardioverter-defibrillator Ulcer Restless legs High cholesterol Former smoker ICD (implantable cardioverter-defibrillator) in place Coronary artery disease CVA (cerebral vascular accident) PFO (patent foramen ovale) Cardiac resynchronization therapy defibrillator (BOOM OPERATOR-D) in place Myocarditis Hyperlipidemia Hypertension Home Medications ?Medication ?Instructions ?Recorded ?Last Taken ?Type clonazepam 1 mg tablet 1 mg PO QHS anxiety 11/18/14 07/02/24 History trazodone 50 mg tablet 50 mg PO DAILY Anxiety 11/18/14 07/02/24 History cholecalciferol (vitamin D3) 25 50 mcg (2 x 25 mcg (1,000 unit)) 09/30/23 07/02/24 Rx mcg (1,000 unit) tablet PO QHS supplement #0 tabs aspirin 81 mg tablet,delayed 81 mg PO .COMPLEX heart 10/01/23 07/02/24 History release rosuvastatin 20 mg tablet 20 mg PO QHS cholesterol 02/21/24 07/02/24 History clopidogrel 75 mg tablet 75 mg PO DAILY #0 tabs 03/13/24 07/02/24 Rx acetaminophen 500 mg tablet 500 mg PO Q6H PRN PRN Pain Score 06/13/24 07/01/24 History 1-10 docusate sodium 100 mg capsule 100 mg PO DAILY PRN constipation 06/13/24 07/02/24 History furosemide 20 mg tablet 20 mg PO QDAY PRN for 2lb weight 06/13/24 06/19/24 History gain pantoprazole 40 mg tablet,delayed 40 mg PO DAILY 07/17/24 Unknown History release baclofen 5 mg tablet 5 mg PO QDAY muscle spasms 08/03/24 Unknown History albuterol sulfate 90 mcg/actuation 1 puff inhalation Q6H PRN 09/09/24 Unknown Rx aerosol inhaler shortness of breath or wheezing #8.5 grams escitalopram oxalate 5 mg tablet 5 mg PO QDAY 11/28/24 Unknown History polyethylene glycol 3350 17 17 g PO BID 11/28/24 Unknown History gram/dose oral powder (Miralax) linaclotide 72 mcg capsule 72 mcg PO QAM #90 caps 12/12/24 Unknown Rx (Linzess) metformin 500 mg tablet 500 mg PO QDAY 01/18/25 Unknown History metoprolol succinate 25 mg 25 mg PO QDAY 01/18/25 Unknown History tablet,extended release 24 hr (Toprol XL) lamotrigine 100 mg tablet 100 mg PO QDAY 01/23/25 Unknown History polyethylene glycol 400 0.25 % eye drp ophthalmic (eye) 01/23/25 Unknown History gel drops (Blink Gel Tears) ferrous sulfate 325 mg (65 mg 325 mg PO QDAY 02/13/25 Unknown History iron) tablet (Feosol) linaclotide 145 mcg capsule 145 mcg PO QAM #60 caps 02/14/25 Unknown Rx (Linzess) hyoscyamine sulfate 0.125 mg tablet 0.125 mg PO TID PRN dyspepsia #90 03/05/25 Unknown Rx tabs oxycodone-acetaminophen 5 mg-325 1 tab PO Q6H PRN PRN severe pain 05/29/25 Unknown History mg tablet Allergy/AdvReac Type Severity Reaction Status Date / Time No Known Allergies Allergy Verified 04/19/25 03:35 Family History Father Heart disease Myocardial infarction Mother Anxiety and depression Suicide and self-inflicted injury from suicide age 52. Surgical History Presence of stent in coronary artery History of bilateral cataract extraction History of skin surgery S/P colon polypectomy History of cardiac defibrillator placement History of cholecystectomy History of coronary artery stent placement Social History household members: spouse Smoking Status: Former smoker how long ago did patient quit smokin-1.5 ppd from teen until quit in 2008. alcohol intake: never substance use type: does not use caffeine: Yes seatbelt use: always do you feel safe at home: Yes additional social history: - [facility] ROS ED Constitutional Constitutional ED: Denies chills or fever(s) Eyes Eyes: Denies change in vision ENT ENT ED: Denies sore throat Cardiovascular Cardiovascular: Denies chest pain Respiratory/Chest Respiratory/Chest: Denies cough or dyspnea Gastrointestinal Gastrointestinal: Denies abdominal pain, diarrhea, nausea or vomiting Genitourinary Genitourinary ED: Reports dysuria Musculoskeletal Musculoskeletal: Denies myalgias Integumentary Denies rash Neurologic Neurologic: Reports weakness; Denies headache(s) Hematologic/Lymphatic Hematologic/Lymphatic: Denies easy bleeding or easy bruising EXAM Physical Exam Const Vital Signs: 04/19/25 03:35 04/19/25 03:35 04/19/25 03:40 Temperature 98.4 F 98.4 F Temperature Source Oral Oral Pulse Rate 77 79 Respiratory Rate 21 H 20 H Respiratory Effort Normal Respiratory Pattern Normal Blood Pressure 163/97 H 163/97 H Blood Pressure Mean 119 119 Pulse Ox 98 98 Oxygen Delivery Method Room Air Room Air 04/19/25 04:40 04/19/25 05:00 04/19/25 06:00 Temperature 98.4 F 98.4 F Temperature Source Oral Oral Pulse Rate 70 69 70 Respiratory Rate 22 H 19 H 16 Respiratory Effort Respiratory Pattern Blood Pressure 139/60 H 151/76 H 133/111 H Blood Pressure Mean 86 101 118 Pulse Ox 98 97 98 Oxygen Delivery Method Room Air Room Air Room Air Positive well nourished and well developed General Appearance ED: well developed; Negative for pallor HEENT Reports dry mucous membranes HEENT Narrative: Normocephalic atraumatic No tongue or lip swelling no oral lesions no airway edema or compromise; no secondary findings in the posterior pharynx to suggest infection Mucous membranes are dry and tacky consistent with concern for dehydration Mouth ED: Yes dry mucous membranes Mouth: dry mucous membranes Eyes PERRL and EOMs intact bilaterally General Eye ED: Negative for scleral icterus Neck supple Neck Narrative: No nuchal rigidity or meningeal signs noted Resp normal respiratory effort and clear to auscultation bilaterally Resp Narrative: Breath sounds are slightly diminished throughout but overall clear to auscultation without signs of respiratory distress Cardio regular rate and regular rhythm Rate: other Other Details: Radial and carotid pulses are equal and symmetric GI normal to inspection, nondistended, normoactive bowel sounds, non-tender, non-distended and no masses GI Narrative: Abdomen is soft nontender and nondistended with normal active bowel sounds No voluntary guarding or rigidity or pulsatile mass Auscultation: normoactive bowel sounds Palpation: soft Extremity normal to inspection Extremity Narrative: No asymmetric edema no pitting edema negative Homans' sign bilaterally No bony deformity or joint effusion noted No signs of long bone injury Neuro oriented x3 and CN's II-XII intact bilaterally Neuro Narrative: Patient is awake and alert and oriented person place and time at her baseline mental status per There is diffuse/generalized weakness without focal deficit NIH stroke scale score of 0 Sensorium / Orientation: alert Motor Exam: general weakness Psych Psych Narrative: Patient has a flat affect Skin no rashes or lesions noted and No skin turgor normal Skin Narrative: Skin turgor is increased consistent with report of poor oral intake and physical exam concerning for dehydration However no secondary skin changes to suggest trauma or infection General Skin Exam: Negative for jaundice or pallor MDM MDM MDM Narrative Medical decision making narrative: Patient presented to the ER slightly hypertensive but has a past medical history of this and otherwise with stable vitals. She reported increasing generalized weakness to the point where she was having difficulty supporting her own body weight and ambulating. Her physical exam shows changes consistent with dehydration. With concern that her weakness is from acute kidney injury electrolyte abnormality thyroid dysfunction UTI or potential acute on chronic blood loss anemia basic laboratory studies were obtained. As her weakness is diffuse and not focal this does not correlate with an acute CVA so I felt no need for a stroke alert or CT of the head. Blood work revealed no clinically significant findings and urine sample revealed no sign of infection. Patient received 1 L of IV fluid and after this did report feeling slightly better and therefore we attempted to ambulate the patient with a walker as she uses at home. The patient was able to ambulate but cannot get out of bed on her own. And once up gait was slightly unsteady requiring 1 hand stabilization by nursing staff and patient also had to stop multiple times secondary to fatigue and feeling unsteady. At this time the patient does not have grounds for admission based on infection such as UTI/urosepsis or acute kidney injury acute blood loss anemia or electrolyte abnormality. There is also no need for admission secondary to acute CVA as her symptoms are nonfocal and generalized and do not correlate with stroke. The patient states that despite the workup in the ER and IV fluids she still feels too weak to go home and is agreeable to fpc/rehab placement. As it is a weekday and morning hours the patient will be evaluated by physical therapy/Occupational Therapy in the ER and social work will be consulted as well. There is hopes that the patient will be able to be sent directly from the ER to a fpc/rehab center. The patient and family were informed of the plan of care and they are agreeable to it. They also understand that if placement cannot be obtained today that because of her persistent weakness she would then require general admission to the hospital. History & Record Review Discussion w/independent historian: Patient and Significant other Lab Data Attestation: I reviewed the patient's lab results. Labs: Laboratory Results - last 24 hr 04/19/25 04/19/25 03:45 04:13 WBC 8.7 RBC 3.32 L Hgb 10.4 L Hct 30.8 L MCV 92.8 MCH 31.3 MCHC 33.8 RDW Std Deviation 44.9 H RDW Coeff of Edita 13.3 Plt Count 189 MPV 10.8 Immature Gran % (Auto) 0.300 Neut % (Auto) 78.3 H Lymph % (Auto) 10.4 L Grant % (Auto) 8.2 Eos % (Auto) 2.5 Baso % (Auto) 0.3 Absolute Neuts (auto) 6.8 Absolute Lymphs (auto) 0.90 Nucleated RBC % 0 Sodium 135 Potassium 4.4 Chloride 99 Carbon Dioxide 25.9 Anion Gap 10 BUN 20 H Creatinine 1.02 Estim Creat Clear Calc 50.29 Est GFR (MDRD) Non-Af 58 L BUN/Creatinine Ratio 19.3 Glucose 229 H Calcium 9.0 Magnesium 1.6 TSH 4.050 Urine Color Yellow Urine Clarity Clear Urine pH 6.5 Ur Specific [place] 1.010 Urine Protein 15 H Urine Glucose (UA) 100 H Urine Ketones Negative Urine Occult Blood Negative Urine Nitrite Negative Urine Bilirubin Negative Urine Urobilinogen Normal Ur Leukocyte Esterase Negative Urine RBC 0 SEEN Urine WBC 0 SEEN Ur Squamous Epith Cells 0 SEEN Urine Bacteria 0 SEEN Urine Mucus 0 SEEN Management Discussion w/another healthcare provider: Hospitalist and warehouse worker 2nd shift/Case management Discharge Plan Triage Chief Complaint: Weakness ED Provider: Romeo Padron Dx/Rx/DC Orders Clinical Impression: Generalized weakness, Ischemic colitis, Dehydration, Chronic anemia, HTN (hypertension) Prescriptions: No Action furosemide 20 mg tablet 20 mg PO QDAY PRN (Reason: for 2lb weight gain) acetaminophen 500 mg tablet 500 mg PO Q6H PRN PRN (Reason: Pain Score 1-10) docusate sodium 100 mg capsule 100 mg PO DAILY PRN (Reason: constipation) pantoprazole 40 mg tablet,delayed release (DR/EC) 40 mg PO DAILY metformin 500 mg tablet 500 mg PO QDAY metoprolol succinate [Toprol XL] 25 mg tablet extended release 24 hr 25 mg PO QDAY Blink Gel Tears 0.25 % drops,gel ophthalmic (eye) lamotrigine 100 mg tablet 100 mg PO QDAY escitalopram oxalate 5 mg tablet 5 mg PO QDAY polyethylene glycol 3350 [Miralax] 17 gram/dose powder 17 g PO BID Linzess 72 mcg capsule 72 mcg PO QAM Qty: 90 1RF ferrous sulfate [Feosol] 325 mg (65 mg iron) tablet 325 mg PO QDAY Linzess 145 mcg capsule 145 mcg PO QAM Qty: 60 2RF trazodone 50 MG tablet 50 mg PO DAILY clonazepam 1 MG tablet 1 mg PO QHS cholecalciferol (vitamin D3) 25 mcg (1,000 unit) Tablet 50 mcg PO QHS Qty: 0 0RF aspirin 81 mg tablet,delayed release (DR/EC) 81 mg PO .COMPLEX Rx Instructions: 81 mg orally EVERY OTHER DAY; rosuvastatin 20 mg tablet 20 mg PO QHS baclofen 5 mg tablet 5 mg PO QDAY Patient Comments: PLEASE SEE ATTACHED FOR DETAILED DIRECTIONS clopidogrel 75 mg Tablet 75 mg PO DAILY Qty: 0 0RF albuterol sulfate 90 mcg/actuation HFA aerosol inhaler 1 puff inhalation Q6H PRN (Reason: shortness of breath or wheezing) Qty: 8.5 0RF oxycodone-acetaminophen 5-325 mg tablet 1 tab PO Q6H PRN PRN (Reason: severe pain) hyoscyamine sulfate 0.125 mg tablet 0.125 mg PO TID PRN (Reason: dyspepsia) Qty: 90 2RF Primary Care Provider: Marci Nuñez Referrals: Marci Nuñez DO [Primary Care Provider] - Print Language: Tamazight
--- NOTE | 2025-04-19 11:24 | HP.PCM.HOS_ITS ---
HPI - General General Date of Admission: 04/19/25 Date of Service: 04/19/25 Chief Complaint: Worsening weakness HPI Narrative BETTY CARO, is a 70 F who presented to [facility] ED on 04/19/2025 with worsening weakness. Patient typically walks with a walker at home. Patient has been noted that she had not been eating or drinking very well for the past several weeks and on the morning of 04/18 she was too weak to get out of bed on her own so she came to the ED for further evaluation. In the ED she was hemodynamically stable on room air. Lab workup was unremarkable. She was given a liter of fluids and nursing staff attempted to get her up out of bed to work with her. She was able to walk with two-person assist but she had significant difficulty getting out of bed. Thus, hospitalist was contacted for admission. I saw the patient at bedside on the floor shortly after arriving over the ED, was present. Patient was laying back comfortably in bed, conversing normally, in no acute distress. Noted that she continues to feel fatigued and weak currently, similar to this morning. No other concerns at this time. [facility] Medical History Ischemic colitis History of left heart catheterization History of mechanical ventilation Cardiogenic pulmonary edema Acute hypoxic respiratory failure Multiple lung nodules Major depressive disorder Left bundle branch block NSTEMI (non-ST elevated myocardial infarction) GERD (gastroesophageal reflux disease) Diabetic peripheral vascular disease Diabetic nephropathy Chronic kidney disease (CKD) Bleeding ulcer Anxiety Dyslipidemia Chronic systolic heart failure Pacemaker Congestive heart failure (CHF) Cerebral palsy Anxiety and depression Heart failure with reduced ejection fraction Insomnia Transient ischemic attack AV node dysfunction Ischemic cardiomyopathy Presence of biventricular implantable cardioverter-defibrillator Ulcer Restless legs High cholesterol Former smoker ICD (implantable cardioverter-defibrillator) in place Coronary artery disease CVA (cerebral vascular accident) PFO (patent foramen ovale) Cardiac resynchronization therapy defibrillator (PEDIATRIC PSYCHOLOGIST-D) in place Myocarditis Hyperlipidemia Hypertension Home Medications ?Medication ?Instructions ?Recorded ?Last Taken ?Type clonazepam 1 mg tablet 1 mg PO QHS anxiety 11/18/14 07/02/24 History trazodone 50 mg tablet 50 mg PO DAILY Anxiety 11/1807/02/24 History cholecalciferol (vitamin D3) 25 50 mcg (2 x 25 mcg (1, 000 unit)) 09/30/23 07/02/24 Rx mcg (1,000 unit) tablet PO QHS supplement #0 tabs aspirin 81 mg tablet,delayed 81 mg PO .COMPLEX heart 1 12/01/22 07/02/24 History release rosuvastatin 20 mg tablet 20 mg PO QHS cholesterol 12/1507/02/24 History acetaminophen 500 mg tablet 500 mg PO Q6H PRN PRN Pain Score 06/13/24 07/01/24 History 1-10 docusate sodium 100 mg capsule 100 mg PO DAILY PRN con stipation 06/13/24 07/02/24 History furosemide 20 mg tablet 20 mg PO QDAY PRN for 2lb we ight 06/13/24 06/19/24 History gain pantoprazole 40 mg tablet,delayed 40 mg PO DAILY 07/17 Unknown History release baclofen 5 mg tablet 5 mg PO QDAY muscle spasms 0 08/03/24 Unknown History albuterol sulfate 90 mcg/actuation 1 puff inhalation Q 6H PRN 09/09/24 Unknown Rx aerosol inhaler shortness of breath or wheez ing #8.5 grams escitalopram oxalate 5 mg tablet 5 mg PO QDAY 11/28/24 Unknown History polyethylene glycol 3350 17 17 g PO DAILY 11/28/24 Unk nown History gram/dose oral powder (Miralax) metformin 500 mg tablet 500 mg PO QDAY 01/18/25 Unkn own History metoprolol succinate 25 mg 25 mg PO QDAY 01/18/25 Unkn own History tablet,extended release 24 hr (Toprol XL) lamotrigine 100 mg tablet 100 mg PO QDAY 01/23/25 Unkn own History polyethylene glycol 400 0.25 % eye drp ophthalmic (eye ) 01/23/25 Unknown History gel drops (Blink Gel Tears) ferrous sulfate 325 mg (65 mg 325 mg PO QDAY 02/13/25 Unknown History iron) tablet (Feosol) linaclotide 145 mcg capsule 145 mcg PO QAM #60 caps Unknown Rx (Linzess) hyoscyamine sulfate 0.125 mg tablet 0.125 mg PO TID CO N dyspepsia #90 03/05/25 Unknown Rx tabs clopidogrel 75 mg tablet 75 mg PO .COMPLEX 04/19/25 U nknown History deutetrabenazine 6 mg 6 mg PO DAILY 04/19/25 Unkno wn History tablet,extended release 24 hr (Austedo XR) oxycodone-acetaminophen 5 mg-325 1 tab PO Q6H PRN PRN severe pain 04/19/25 Unknown History mg tablet phenazopyridine 100 mg tablet 100 mg PO TID PRN PRN bl adder pain 04/19/25 Unknown History Allergy/AdvReac Type Severity Reaction Status Date / Time No Known Allergies Allergy Verified 04/19/25 03:35 Family History Father Heart disease Myocardial infarction Mother Anxiety and depression Suicide and self-inflicted injury from suicide age 52. Surgical History Presence of stent in coronary artery History of bilateral cataract extraction History of skin surgery S/P colon polypectomy History of cardiac defibrillator placement History of cholecystectomy History of coronary artery stent placement Social History household members: spouse Smoking Status: Former smoker how long ago did patient quit smokin-1.5 ppd from teen until quit in 2008. alcohol intake: never substance use type: does not use caffeine: Yes seatbelt use: always do you feel safe at home: Yes additional social history: - Cuate FUENTES Constitutional Constitutional: Reports fatigue and weakness; Denies chills or fever(s) Eyes Eyes: Denies change in vision Cardiovascular Cardiovascular: Denies chest pain Respiratory/Chest Respiratory/Chest: Denies shortness of breath at rest Gastrointestinal Gastrointestinal: Denies abdominal pain Genitourinary Genitourinary: Denies dysuria Musculoskeletal Musculoskeletal: Denies arthralgias or myalgias Neurologic Neurologic: Denies dizziness, focal weakness or headache(s) Vital Signs Vital Signs Vital Signs: 04/19/25 03:35 04/19/25 03:35 04/19/25 03:40 Temperature 98.4 F 98.4 F Temperature Source Oral Oral Pulse Rate 77 79 Respiratory Rate 21 H 20 H Respiratory Effort Normal Respiratory Pattern Normal Blood Pressure 163/97 H 163/97 H Blood Pressure Mean 119 119 Pulse Ox 98 98 Oxygen Delivery Method Room Air Room Air 04/19/25 04:40 04/19/25 05:00 04/19/25 06:00 Temperature 98.4 F 98.4 F Temperature Source Oral Oral Pulse Rate 70 69 70 Respiratory Rate 22 H 19 H 16 Respiratory Effort Respiratory Pattern Blood Pressure 139/60 H 151/76 H 133/111 H Blood Pressure Mean 86 101 118 Pulse Ox 98 97 98 Oxygen Delivery Method Room Air Room Air Room Air 04/19/25 07:00 04/19/25 08:00 04/19/25 09:00 Temperature Temperature Source Pulse Rate 66 78 78 Respiratory Rate 18 18 18 Respiratory Effort Respiratory Pattern Blood Pressure 123/61 H 193/91 H 189/86 H Blood Pressure Mean 81 125 120 Pulse Ox 96 96 96 Oxygen Delivery Method Room Air Room Air Room Air 04/19/25 10:00 04/19/25 11:00 Temperature Temperature Source Pulse Rate 77 77 Respiratory Rate 18 18 Respiratory Effort Respiratory Pattern Blood Pressure 180/78 H 178/76 H Blood Pressure Mean 112 110 Pulse Ox 96 96 Oxygen Delivery Method Room Air Room Air Weight Weight: 64.4 kg Body Mass Index (BMI) 21.6 Physical Exam Const alert, oriented x3, no apparent distress and average body habitus Constitutional Narrative: Elderly female, moderately fatigued and weak appearing, otherwise sitting back comfortably in bed, conversing normally, in no acute distress. General Appearance: cooperative and comfortable HEENT normocephalic, head/scalp atraumatic, hearing grossly normal bilaterally, nasal mucous membranes and turbinates normal and moist oral mucous membranes Eyes PERRL, EOMs intact bilaterally and conjunctivae normal Neck full ROM Chest inspection of chest normal Resp normal respiratory effort, normal air movement, no use of accessory muscles and clear to auscultation bilaterally Cardio regular rate, regular rhythm, no murmurs and peripheral pulses 2+ throughout GI normal to inspection, nondistended, normoactive bowel sounds, soft to palpation, non-tender and non-distended Back/Spine normal ROM Extremity normal to inspection and no pedal edema Skin no rashes or lesions noted Neuro oriented x3, moves all extremities and no focal motor deficits Neuro Narrative: Generalized weakness noted. Speech: speech normal Psych mental status grossly normal Results Lab / Micro Data 04/19/25 03:45 04/19/25 03:45 Labs: Laboratory Results - last 24 hr 04/19/25 03:45: WBC 8.7, RBC 3.32 L, Hgb 10.4 L, Hct 30.8 L, MCV 92.8, MCH 31.3, MCHC 33.8, RDW Std Deviation 44.9 H, RDW Coeff of Edita 13.3, Plt Count 189, MPV 10.8, Immature Gran % (Auto) 0.300, Neut % (Auto) 78.3 H, Lymph % (Auto) 10.4 L, [place] % (Auto) 8.2, Eos % (Auto) 2.5, Baso % (Auto) 0.3, Absolute Neuts (auto) 6.8, Absolute Lymphs (auto) 0.90, Nucleated RBC % 0, Sodium 135, Potassium 4.4, Chloride 99, Carbon Dioxide 25.9, Anion Gap 10, BUN 20 H, Creatinine 1.02, Estim Creat Clear Calc 50.29, Est GFR (MDRD) Non-Af 58 L, BUN/Creatinine Ratio 19.3, G lucose 229 H, Calcium 9.0, Magnesium 1.6, TSH 4.050 04/19/25 04:13: Urine Color Yellow, Urine Clarity Clear, Urine pH 6.5, Ur Specific [place] 1.010, Urine Protein 15 H, Urine Glucose (UA) 100 H, Urine Ketones Negative, Urine Occult Blood Negative, Urine Nitrite Negative, Urine Bilirubin Negative, Urine Urobilinogen Normal, Ur Leukocyte Esterase Negative, Urine RBC 0 SEEN, Urine WBC 0 SEEN, Ur Squamous Epith Cells 0 SEEN, Urine Bacteria 0 SEEN, Urine Mucus 0 SEEN Assessment & Plan Assessment/Plan (1) Generalized weakness: PLAN: Plan Patient is a 70-year-old female who presented to [facility] ED on 04/19/2025 with worsening weakness. 1. Acute on chronic debility ? Admit under observation status to [facility]. PT/OT/case management consulted. Patient with chronic debility at baseline, requires walker for ambulation. Has had worsening generalized weakness over the past several weeks. No abnormalities on admit. No focal weakness noted. Suspect primarily worsening weakness in setting of deconditioning. Appreciate therapy recommendations. Will likely need SNF placement on discharge. Chronic medical conditions: ? Type 2 diabetes mellitus: Hold home metformin. Will treat with sliding scale insulin with meals while inpatient, adjust as needed. ? History of CAD with stenting, history of heart failure s/p ICD placement with recovered ejection fraction, history of heart block s/p pacemaker placement, history of CVA, hypertension, hyperlipidemia: Hypertensive to the 150s to 160s on admit but otherwise stable. Last echo in 09/14 showed EF 55%. Continue home aspirin, Plavix, statin, and Toprol. ? Mild chronic iron deficiency anemia: Hemoglobin stable at baseline around 10 on admit. Continue home iron supplement. ? Anxiety/depression: Stable. Continue home escitalopram, lamotrigine and diazepam at night as needed. ? Muscle spasms: Continue home baclofen. ? GERD: Continue home PPI. ? Chronic constipation, history of ischemic colitis: Follows with outpatient GI. On Linzess and MiraLAX at home. Unfortunately not able to take Linzess while here. Will treat with scheduled MiraLAX and senna while inpatient. DVT prophylaxis: Lovenox CODE STATUS: Full code, verified Expected disposition: Likely SNF, 1 to 2 days Total clinical time spent by myself addressing the patient's medical issues, reviewing all the data, and collaborating with patient's care team: 55 minutes. Charges/Coding Visit Charges Inpatient E&M: 07534 Init Hosp L2
[2025-04-19 11:55] LABS: Bedside Glucose 153 mg/dL (74-106)
--- NOTE | 2025-04-19 12:47 | CM.ED ---
Social work Reason for referral: potential need for rehab/senior living placement Referral source: Dr. Padron This SW received consult for possible placement of patient into a SNF from the [facility] ED. This SW entered patient's room, introducing self and role at [facility] to patient and patient's , Cuate. Patient was observed laying in bed and struggling to sit up during SW conversation. Patient's , Cuate, stated patient is too weak due to various medical situations patient is currently experiencing and previously experienced. Cuate stated that patient slowly collapsed to the floor this morning while walking to the bathroom. Patient stated being very weak and wanting to do whatever it took to get stronger. Patient and Cuate both agreed that HHC was not enough in patient's current state and patient expressed not feeling safe enough to go home. SW provided estimates for self-pay costs at a SNF to go from [facility] ED to a SNF. Patient and Cuate both agreed that this would not be financially possible right now. SW updated Dr. Sanders (took patient over for Dr. Padron) who confirmed willingness to try for admission for precert/SNF placement. Patient and Cuate both stated wanting TCU if possible; SW stated ability to pass that along to the acute SW team. Paulina Brewster, PHILOSOPHY AND RELIGION INSTRUCTOR, PASTRY DECORATOR
[2025-04-19] MEDS: Ferrous Sulfate 325 MG Tablet PO (14:05)
[2025-04-19] MEDS: Baclofen 10 MG Tablet 5 MG PO ×3 (14:05→20:31)
[2025-04-19] MEDS: Insulin Lispro 100 UNIT/ML INSULN.PEN SC ×2 (16:19→20:34)
[2025-04-19 16:33] LABS: Bedside Glucose 260 mg/dL (74-106)
[2025-04-19] MEDS: Senna Tablet 1 TABLET PO (20:32)
[2025-04-19] MEDS: Atorvastatin Calcium 40 MG Tablet PO (20:32)
[2025-04-19] MEDS: Cholecalciferol (VIT D3) 25 MCG TABLET (1,000 UNITS) 50 MCG PO (20:32)
[2025-04-19] MEDS: traZODone 50 MG Tablet PO (20:40)
[2025-04-19 21:00] LABS: Bedside Glucose 242 mg/dL (74-106)
[2025-04-20 03:10] VITALS: BP 113/77; PULSE 75; RESP 16; TEMP 37.4; O2SAT 96
[2025-04-20 06:01] LABS: Hematocrit 28.7 % (37-47); Hemoglobin 9.6 g/dL (12.0-15.0); Mean Corp Hgb Conc 33.4 g/dL (32-36); Mean Corpuscular Hgb 31.3 pg (27.0-32.0); Mean Corpuscular Volume 93.5 fL (81-99); Mean Platelet Vol. 10.7 fl (6.2-12.0); Platelet Count 175 K/mm3 (150-450); RBC Distribution Width CV 13.7 % (11.6-14.6); RBC Distribution Width SD 46.6 fl (35.1-43.9); Red Blood Count 3.07 M/mm3 (4.2-5.4)
[2025-04-20 06:07] LABS: Scan Indicated on CBC? Y/N NO
[2025-04-20 06:33] LABS: Anion Gap 10 (5-15); BUN 12 mg/dL (4-19); BUN/Creat Ratio 13.4 RATIO (10-20); Calcium,Total 8.7 mg/dL (7.6-11.0); Carbon Dioxide 23.8 mmol/L (21.0-32.0); Chloride 105 mmol/L (98-108); Creatinine, Serum 0.88 mg/dL (0.70-1.20); EST Glomerular Filtration Rate 70 (>60); Estimated Creatinine Clearance 56.56 ml/min (50-250); Glucose 188 mg/dL (70-99); Potassium 3.9 mmol/L (3.3-5.1); Sodium Level 138 mmol/L (133-145)
[2025-04-20] MEDS: Insulin Lispro 100 UNIT/ML INSULN.PEN SC ×2 (06:39→11:35)
[2025-04-20 07:01] LABS: Bedside Glucose 197 mg/dL (74-106)
[2025-04-20 08:41] VITALS: BP 94/61; PULSE 75; RESP 18; TEMP 36.9; O2SAT 95
[2025-04-20] MEDS: Senna Tablet 1 TABLET PO (08:49)
[2025-04-20] MEDS: Baclofen 10 MG Tablet 5 MG PO ×2 (08:49→13:07)
[2025-04-20] MEDS: DEUTETRABENAZINE 6 MG PO (08:50)
[2025-04-20] MEDS: Aspirin E.C. 81 MG Tablet PO (08:50)
[2025-04-20] MEDS: lamoTRIgine 100 MG Tablet PO (08:50)
[2025-04-20] MEDS: Polyethylene Glycol 3350 17 GM PACKET PO (08:50)
[2025-04-20] MEDS: Pantoprazole Sodium 40 MG Tablet PO (08:50)
[2025-04-20] MEDS: Escitalopram Oxalate 10 MG Tablet 5 MG PO (08:50)
[2025-04-20] MEDS: Enoxaparin 40 MG/0.4 ML Syringe SC (08:51)
--- NOTE | 2025-04-20 10:15 | CASEMGMT ---
Met with patient to complete DUONG form. DUONG form and its content were verbally explained and patient's questions were answered to the best of my ability.? Patient voiced understanding and signed DUONG form.? Patient provided a copy of signed DUONG form and original placed in patient's chart.? Patient had no further questions. Danielle Casey, Discharge Planning Asst
[2025-04-20 10:34] VITALS: BP 115/68; PULSE 75
[2025-04-20] MEDS: Metoprolol(XL)Succ 25 MG Tablet PO (10:34)
--- NOTE | 2025-04-20 10:34 | CASEMGMT ---
Addendum entered by Yomaira Livingston 04/20/25 14:02: Social Work Pt has been accepted by TCU and precert has been started. SW met with pt and spouse and updated. Green Sheet on chart to facilitate a weekend discharge. Plan: TCU, pending precert EDUARDO Mustafa Original Note: Social Work SW met with pt and Cuate to discuss discharge plan. Cuate does not feel pt can return home at this time and short term SNF is needed. Pt and are requesting placement at [facility] TCU and deny need for list of SNF options. Referral made to TCU. SW will await determination of acceptance. Precert will be needed for pt to go to SNF. Plan: TCU, pending acceptance and precert EDUARDO Mustafa
[2025-04-20 12:07] LABS: Bedside Glucose 225 mg/dL (74-106)
[2025-04-20] MEDS: Acetaminophen 325 MG Tablet 650 MG PO (13:06)
[2025-04-20] MEDS: oxyCODONE 5 MG Tablet PO (13:07)
[2025-04-20] MEDS: Ferrous Sulfate 325 MG Tablet PO (13:08)
[2025-04-20] MEDS: Clopidogrel Bisulfate 75 MG Tablet PO (13:08)
[2025-04-20 13:24] VITALS: O2SAT 97
[2025-04-20] MEDS: Ondansetron 4 MG/2 ML Vial IV (14:17)
[2025-04-20 14:41] VITALS: BP 136/57; PULSE 60; RESP 16; TEMP 37.1; O2SAT 97
--- NOTE | 2025-04-20 14:49 | PCM.DC.SUM ---
Providers Date of Admission: 04/19/25 Date of Discharge: 04/20/25 Primary Care Physician: Dr. Marci Nuñez DO Reason For Visit: ACUTE ON CHRONIC DEBILITY Diagnosis Discharge Diagnosis (1) Generalized weakness: Status: Acute Code(s): R53.1 - Weakness Medications at Discharge Home Medications clonazepam 1 mg tablet 1 mg PO QHS anxiety 11/18/14 trazodone 50 mg tablet 50 mg PO DAILY Anxiety 11/18/14 cholecalciferol (vitamin D3) 25 mcg (1,000 unit) tablet 50 mcg (2 x 25 mcg (1,000 unit)) PO QHS supplement #0 tabs 09/30/23 aspirin 81 mg tablet,delayed release 81 mg PO .COMPLEX heart 10/01/23 rosuvastatin 20 mg tablet 20 mg PO QHS cholesterol 02/21/24 acetaminophen 500 mg tablet 500 mg PO Q6H PRN PRN Pain Score 1-10 06/13/24 docusate sodium 100 mg capsule 100 mg PO DAILY PRN constipation 06/13/24 furosemide 20 mg tablet 20 mg PO QDAY PRN for 2lb weight gain 06/13/24 pantoprazole 40 mg tablet,delayed release 40 mg PO DAILY 07/17/24 baclofen 5 mg tablet 5 mg PO QDAY muscle spasms 08/03/24 albuterol sulfate 90 mcg/actuation aerosol inhaler 1 puff inhalation Q6H PRN shortness of breath or wheezing #8.5 grams 09/09/24 escitalopram oxalate 5 mg tablet 5 mg PO QDAY 11/28/24 polyethylene glycol 3350 17 gram/dose oral powder (Miralax) 17 g PO DAILY 11/28/24 metformin 500 mg tablet 500 mg PO QDAY 01/18/25 metoprolol succinate 25 mg tablet,extended release 24 hr (Toprol XL) 25 mg PO QDAY 01/18/25 lamotrigine 100 mg tablet 100 mg PO QDAY 01/23/25 polyethylene glycol 400 0.25 % eye gel drops (Blink Gel Tears) drp ophthalmic (eye) 01/23/25 ferrous sulfate 325 mg (65 mg iron) tablet (Feosol) 325 mg PO QDAY 02/13/25 linaclotide 145 mcg capsule (Linzess) 145 mcg PO QAM #60 caps 02/14/25 hyoscyamine sulfate 0.125 mg tablet 0.125 mg PO TID PRN dyspepsia #90 tabs 03/05/25 clopidogrel 75 mg tablet 75 mg PO .COMPLEX 04/19/25 deutetrabenazine 6 mg tablet,extended release 24 hr (Austedo XR) 6 mg PO DAILY 04/19/25 oxycodone-acetaminophen 5 mg-325 mg tablet 1 tab PO Q6H PRN PRN severe pain 04/19/25 phenazopyridine 100 mg tablet 100 mg PO TID PRN PRN bladder pain 04/19/25 Hospital Course Operations None Procedures None Summary of Care Provided Minutes Spent on Discharge: 35 Hospital Course: Patient is a 70-year-old female who presented to [facility] ED on 04/19/2025 with worsening weakness. Short hospital course as noted below. Patient discharged to TCU in stable condition on 04/20. 1. Acute on chronic debility ? PT/OT/case management followed. Patient with chronic debility at baseline, requires walker for ambulation. Has had worsening generalized weakness over the past several weeks. No abnormalities on admit. No focal weakness noted. Suspect primarily worsening weakness in setting of deconditioning. Had borderline therapy scores while here. Stable for discharge to TCU on 04/20. Chronic medical conditions: ? Type 2 diabetes mellitus: Treated with sliding scale insulin with meals while inpatient. Okay to resume home metformin on discharge. ? History of CAD with stenting, history of heart failure s/p ICD placement with recovered ejection fraction, history of heart block s/p pacemaker placement, history of CVA, hypertension, hyperlipidemia: Hypertensive to the 150s to 160s on admit but otherwise stable. Last echo in 09/14 showed EF 55%. Continue home aspirin, Plavix, statin, and Toprol. ? Mild chronic iron deficiency anemia: Hemoglobin stable at baseline around 10 on admit. Continue home iron supplement. ? Anxiety/depression: Stable. Continue home escitalopram, lamotrigine and diazepam at night as needed. ? Muscle spasms: Continue home baclofen. ? GERD: Continue home PPI. ? Chronic constipation, history of ischemic colitis: Follows with outpatient GI. On Linzess and MiraLAX at home. Unfortunately not able to take Linzess while here. Treated with scheduled MiraLAX and senna while inpatient. Okay to resume home regimen on discharge. Total clinical time spent by myself addressing the patient's medical issues, reviewing all the data, and collaborating with patient's care team: 35 minutes. Physical Exam Const alert, oriented x3, no apparent distress and average body habitus Constitutional Narrative: Elderly female, mildly fatigued and weak appearing, otherwise sitting back comfortably in bed, conversing normally, in no acute distress. General Appearance: cooperative and comfortable HEENT normocephalic, head/scalp atraumatic, hearing grossly normal bilaterally, nasal mucous membranes and turbinates normal and moist oral mucous membranes Eyes PERRL, EOMs intact bilaterally and conjunctivae normal Neck full ROM Chest inspection of chest normal Resp normal respiratory effort, normal air movement, no use of accessory muscles and clear to auscultation bilaterally Cardio regular rate, regular rhythm, no murmurs and peripheral pulses 2+ throughout GI normal to inspection, nondistended, normoactive bowel sounds, soft to palpation, non-tender and non-distended Back/Spine normal ROM Extremity normal to inspection and no pedal edema Skin no rashes or lesions noted Neuro oriented x3, moves all extremities and no focal motor deficits Neuro Narrative: Generalized weakness noted. Speech: speech normal Psych mental status grossly normal Weight / BMI Weight Weight: 62 kg Body Mass Index (BMI) 20.7 ABG / Lab / Microbiology Data 04/20/25 05:19 04/20/25 05:19 Laboratory: Laboratory Results - last 24 hr 04/19/25 16:14: POC Glucose 260 H 04/19/25 20:34: POC Glucose 242 H 04/20/25 05:19: WBC 6.0, RBC 3.07 L, Hgb 9.6 L, Hct 28.7 L, MCV 93.5, MCH 31.3, MCHC 33.4, RDW Std Deviation 46.6 H, RDW Coeff of Edita 13.7, Plt Count 175, MPV 10.7, Sodium 138, Potassium 3.9, Chloride 105, Carbon Dioxide 23.8, Anion Gap 10, BUN 12, Creatinine 0.88, Estim Creat Clear Calc 56.56, Est GFR (MDRD) Non-Af 70, BUN/Creatinine Ratio 13.4, Glucose 188 H, Calcium 8.7 04/20/25 06:38: POC Glucose 197 H 04/20/25 11:31: POC Glucose 225 H D/C Instructions DC O2, CPAP, BIPAP Needs Home O2 Discharge instructions: No Meaningful Use Info Meaningful Use Meaningful Use Diagnoses (Choose all that apply): None applicable Ischemic Stroke Statin Dosing Therapy Reference: STATIN DOSE THERAPY REFERENCE: * Patients > 75 years receive moderate or high dose statin therapy. * Patients 75 years or YOUNGER should receive HIGH intensity statin dose unless contraindicated. You will be required to document reason for non-treatment if statin daily dose does not meet guidelines. HIGH DOSE STATIN THERAPY DAILY Atorvastatin > than or = to 40 mg Rosuvastatin > than or = to 20 mg Amlodipine + Atorvastatin > than or = to 2.5/40 mg Ezetimibe + Simvastatin 10/80 mg Simvastatin 80mg Discharge Plan Admission Admit Date/Time: 04/19/25 11:26 Primary Reason for Your Visit: weakness Attending Provider: Maximo Orosco Primary Care Provider: Marci Nuñez Discharge Orders/Prescriptions Prescriptions: Continued furosemide 20 mg tablet 20 mg PO QDAY PRN (Reason: for 2lb weight gain) acetaminophen 500 mg tablet 500 mg PO Q6H PRN PRN (Reason: Pain Score 1-10) docusate sodium 100 mg capsule 100 mg PO DAILY PRN (Reason: constipation) pantoprazole 40 mg tablet,delayed release (DR/EC) 40 mg PO DAILY metformin 500 mg tablet 500 mg PO QDAY metoprolol succinate [Toprol XL] 25 mg tablet extended release 24 hr 25 mg PO QDAY Blink Gel Tears 0.25 % drops,gel ophthalmic (eye) lamotrigine 100 mg tablet 100 mg PO QDAY escitalopram oxalate 5 mg tablet 5 mg PO QDAY polyethylene glycol 3350 [Miralax] 17 gram/dose powder 17 g PO DAILY ferrous sulfate [Feosol] 325 mg (65 mg iron) tablet 325 mg PO QDAY Linzess 145 mcg capsule 145 mcg PO QAM Qty: 60 2RF trazodone 50 MG tablet 50 mg PO DAILY clonazepam 1 MG tablet 1 mg PO QHS cholecalciferol (vitamin D3) 25 mcg (1,000 unit) Tablet 50 mcg PO QHS Qty: 0 0RF aspirin 81 mg tablet,delayed release (DR/EC) 81 mg PO .COMPLEX Rx Instructions: 81 mg orally EVERY OTHER DAY; rosuvastatin 20 mg tablet 20 mg PO QHS baclofen 5 mg tablet 5 mg PO QDAY Patient Comments: PLEASE SEE ATTACHED FOR DETAILED DIRECTIONS albuterol sulfate 90 mcg/actuation HFA aerosol inhaler 1 puff inhalation Q6H PRN (Reason: shortness of breath or wheezing) Qty: 8.5 0RF oxycodone-acetaminophen 5-325 mg tablet 1 tab PO Q6H PRN PRN (Reason: severe pain) [place] XR 6 mg tablet extended release 24 hr 6 mg PO DAILY phenazopyridine 100 mg tablet 100 mg PO TID PRN PRN (Reason: bladder pain) clopidogrel 75 mg Tablet 75 mg PO .COMPLEX Rx Instructions: 75 mg orally Wednesday, Wednesday, Wednesday; hyoscyamine sulfate 0.125 mg tablet 0.125 mg PO TID PRN (Reason: dyspepsia) Qty: 90 2RF Referrals / Follow Up: Marci Nuñez DO [Primary Care Provider] - Disposition Disposition (needs filled in before D/C Order can be placed): Detention Facility Charges/Coding Visit Charges Inpatient E&M: 65014 Disch Hosp >30min
--- NOTE | 2025-04-20 15:08 | CASEMGMT ---
Social Work Precert has been obtained for discharge to TCU. Physician notified and pt is ready for discharge today. Pt and spouse notified of dc plan and agreeable. SW to fax dc orders to TCU when completed. Disposition: TCU, skilled level of care EDUARDO Mustafa
[2025-04-20] MEDS: 0.9% Saline Lock 10 ML Syringe IV (15:35)
[2025-04-20] MEDS: proCHLORPERazine 10 MG/2 ML Vial 5 MG IV (15:35)
== END 2025-04-20 16:00 | disposition skilled nursing facility (03) ==
LOC: ED 05:50 → MS3 13:01
PROVIDERS: Admitting Provider Hospitalist; Emergency Provider Emergency Medicine; PCP Family Medicine; Visit Provider Hospitalist
DX: E86.0 Dehydration (principal); I13.0 Hypertensive heart and chronic kidney disease with heart failure and stage 1 through stage 4 chronic kidney disease, or unspecified chronic kidney disease; I50.22 Chronic systolic (congestive) heart failure; G80.9 Cerebral palsy, unspecified; E11.22 Type 2 diabetes mellitus with diabetic chronic kidney disease; E11.51 Type 2 diabetes mellitus with diabetic peripheral angiopathy without gangrene; K21.9 Gastro-esophageal reflux disease without esophagitis; K55.9 Vascular disorder of intestine, unspecified; R26.81 Unsteadiness on feet; Z87.891 Personal history of nicotine dependence; E78.00 Pure hypercholesterolemia, unspecified; R53.81 Other malaise; N18.9 Chronic kidney disease, unspecified; F41.9 Anxiety disorder, unspecified; D50.9 Iron deficiency anemia, unspecified; M62.838 Other muscle spasm; Z79.84 Long term (current) use of oral 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 drugs; F32.A Depression, unspecified; I25.5 Ischemic cardiomyopathy; Z79.02 Long term (current) use of antithrombotics/antiplatelets; I25.10 Atherosclerotic heart disease of native coronary artery without angina pectoris; Z79.82 Long term (current) use of aspirin; Z79.899 Other long term (current) drug therapy; Q21.12 Patent foramen ovale; K59.09 Other constipation
CPT/HCPCS: 36415; 80048; 81001; 82962; 83735; 84443; 85025; 85027; 93005; 94668; 96361; 96372; 96374; 96375; 97162; 97166; 97530; 99221; 99283; A4216; G0378; J2405

== ENCOUNTER 2025-04-20 16:10 | Inpatient (IN) | payer MEDICARE, SELFPAY ==
--- NOTE | 2025-04-20 16:24 | PCM.HP.STD ---
HPI - General General Date of Admission: 04/20/25 Date of Service: 04/20/25 Chief Complaint: Here for rehabilitation. HPI Narrative BETTY CARO, is a 70 Female who presents with followin04/19/2025 [facility] ED weakness. Walks with walker at baseline. Not eating, not drinking for weeks. Too weak to get OOB. Patient concerned with urinary tract infection. Bloodwork okay, urinalysis okay. Normal saline 1 liter IV fluid bolus given. unable to care for her at home. PT/OT for placement. 04/19/2025 Admit [facility]. PT/OT/CM for SNF placement. No reversible etiology for weakness found. 04/20/2025 Resident vomited twice, vomitus appeared to be food, antiemetics given which made her loopy. 04/20/2025 Admit to TCU with debility, here for rehabilitation, strengthening, prior to discharge home with . 04/25/2025 Dr. Lockett planning EGD/colonoscopy for anemia, +hemoccult, ischemic colitis. Dr. Garcia planning cystoscopy in office, date unknown. [facility] Medical History (Updated 04/20/25 @ 16:[address] Alonso Marte MD) CVA (cerebral vascular accident) Ischemic colitis History of left heart catheterization History of mechanical ventilation Cardiogenic pulmonary edema Acute hypoxic respiratory failure Multiple lung nodules Major depressive disorder Left bundle branch block NSTEMI (non-ST elevated myocardial infarction) GERD (gastroesophageal reflux disease) Diabetic peripheral vascular disease Diabetic nephropathy Chronic kidney disease (CKD) Bleeding ulcer Anxiety Dyslipidemia Chronic systolic heart failure Pacemaker Congestive heart failure (CHF) Cerebral palsy Anxiety and depression Heart failure with reduced ejection fraction Insomnia Transient ischemic attack AV node dysfunction Ischemic cardiomyopathy Presence of biventricular implantable cardioverter-defibrillator Ulcer Restless legs High cholesterol Former smoker ICD (implantable cardioverter-defibrillator) in place Coronary artery disease PFO (patent foramen ovale) Cardiac resynchronization therapy defibrillator (STEEL CUTTER-D) in place Myocarditis Hyperlipidemia Hypertension Home Medications ?Medication ?Instructions ?Recorded ?Last Taken ?Type clonazepam 1 mg tablet 1 mg PO QHS anxiety 11/18/14 07/02/24 History trazodone 50 mg tablet 50 mg PO DAILY Anxiety 11/18/14 04/19/25 20:30 History cholecalciferol (vitamin D3) 25 50 mcg (2 x 25 mcg (1,000 unit)) 09/30/23 04/19/25 20:30 Rx mcg (1,000 unit) tablet PO QHS supplement #0 tabs aspirin 81 mg tablet,delayed 81 mg PO .COMPLEX heart 10/01/23 04/20/25 08:50 History release rosuvastatin 20 mg tablet 20 mg PO QHS cholesterol 02/21/24 04/19/25 20:30 History acetaminophen 500 mg tablet 500 mg PO Q6H PRN PRN Pain Score 06/13/24 07/01/24 History 1-10 docusate sodium 100 mg capsule 100 mg PO DAILY PRN constipation 06/13/24 07/02/24 History furosemide 20 mg tablet 20 mg PO QDAY PRN for 2lb weight 06/13/24 06/19/24 History gain pantoprazole 40 mg tablet,delayed 40 mg PO DAILY GERD 07/17/24 04/20/25 08:50 History release baclofen 5 mg tablet 5 mg PO QDAY muscle spasms 08/03/24 Unknown History albuterol sulfate 90 mcg/actuation 1 puff inhalation Q6H PRN 09/09/24 Unknown Rx aerosol inhaler shortness of breath or wheezing #8.5 grams escitalopram oxalate 5 mg tablet 5 mg PO QDAY Mood 11/28/24 04/20/25 08:50 History polyethylene glycol 3350 17 17 g PO DAILY Constipation 11/28/24 Unknown History gram/dose oral powder (Miralax) metformin 500 mg tablet 500 mg PO QDAY Diabetes 01/18/25 Unknown History metoprolol succinate 25 mg 25 mg PO QDAY BP 01/18/25 04/20/25 10:35 History tablet,extended release 24 hr (Toprol XL) lamotrigine 100 mg tablet 100 mg PO QDAY Anxiety 01/23/25 04/20/25 08:50 History polyethylene glycol 400 0.25 % eye 1 drp ophthalmic (eye) .q1hr PRN 01/23/25 Unknown History gel drops (Blink Gel Tears) Dry eyes ferrous sulfate 325 mg (65 mg 325 mg PO QDAY Supplement 02/13/25 04/20/25 08:30 History iron) tablet (Feosol) linaclotide 145 mcg capsule 145 mcg PO QAM Constipation #60 02/14/25 Unknown Rx (Linzess) caps hyoscyamine sulfate 0.125 mg tablet 0.125 mg PO TID PRN dyspepsia #90 03/05/25 Unknown Rx tabs clopidogrel 75 mg tablet 75 mg PO .COMPLEX Antiplatelet 04/19/25 04/20/25 13:05 History deutetrabenazine 6 mg 6 mg PO DAILY involuntary Movements 04/19/25 04/20/25 08:50 History tablet,extended release 24 hr (Austedo XR) oxycodone-acetaminophen 5 mg-325 1 tab PO Q6H PRN PRN severe pain 04/19/25 Unknown History mg tablet phenazopyridine 100 mg tablet 100 mg PO TID PRN PRN bladder pain 04/19/25 Unknown History Allergy/AdvReac Type Severity Reaction Status Date / Time No Known Allergies Allergy Verified 04/19/25 03:35 Family History Father Heart disease Myocardial infarction Mother Anxiety and depression Suicide and self-inflicted injury from suicide age 52. Surgical History Presence of stent in coronary artery History of bilateral cataract extraction History of skin surgery S/P colon polypectomy History of cardiac defibrillator placement History of cholecystectomy History of coronary artery stent placement Social History household members: spouse Smoking Status: Former smoker how long ago did patient quit smokin-1.5 ppd from teen until quit in 2008. alcohol intake: never substance use type: does not use caffeine: Yes seatbelt use: always do you feel safe at home: Yes additional social history: - Cuate ROS Constitutional Constitutional: Reports weakness; Denies chills, fever(s) or weight gain ENT HEENT: Denies headache(s), nasal congestion or nasal discharge Cardiovascular Cardiovascular: Denies chest pain or palpitations Respiratory/Chest Respiratory/Chest: Denies cough, excessive phlegm production or shortness of breath with exertion Gastrointestinal Gastrointestinal: Denies abdominal pain, nausea or vomiting Genitourinary Genitourinary: Denies dysuria Musculoskeletal Musculoskeletal: Denies joint pain or joint swelling Integumentary Integumentary: Denies rash or wounds Neurologic Neurologic: Denies focal weakness, numbness or tingling Psychiatric Psychiatric: Denies anxiety, auditory hallucinations, depression, homicidal ideation or suicidal ideation Physical Exam Const alert General Appearance: cooperative HEENT normocephalic Eyes PERRL and EOMs intact bilaterally Neck supple, no JVD and no carotid bruits Resp normal respiratory effort, normal air movement and clear to auscultation bilaterally Cardio regular rate and regular rhythm GI normal to inspection, nondistended, normoactive bowel sounds, non-tender and non-distended Extremity normal capillary refill General Extremity: Negative for edema Skin no rashes or lesions noted General Skin Exam: no breakdown Neuro moves all extremities Psych affect normal Appearance: appropriate Assessment & Plan Assessment/Plan (1) Debility: (2) CVA (cerebral vascular accident): (3) HLD (hyperlipidemia): (4) Muscle spasm: (5) Ischemic colitis: (6) Calcium deficiency: (7) Vitamin D deficiency: (8) Insomnia: (9) Chronic systolic heart failure: (10) Irritable bowel syndrome: (11) Depression: (12) Diabetes mellitus: (13) GERD (gastroesophageal reflux disease): (14) Overactive bladder: PLAN: Plan 70 year old female with below past medical history hospitalized for weakness, no reversible cause of weakness found, admitted to TCU with debility, here for rehabilitation, strengthening, prior ot discharge home with . Debility - PT/OT. Pain - Tylenol 1000mg q6 prn pain (1-10). Bowel - Miralax 17gm daily, Linzess 145mcg daily. Adult immunization - Administer pneumonia vaccine, covid vaccine, flu vaccine as appropriate. DVT prophylaxis - Hold, on dual antiplatelet therapy. Chronic HFrEF - Metoprolol succinate 25mg daily, Furosemide 20mg daily prn 2lb weight gain. GERD - Pantoprazole 40mg daily, Levsin 0.125mg tid prn. Diabetes Mellitus II - Metformin 500mg daily. Dry Eyes - Artificial tears 1 gtt ou q1 prn. Anxiety - Lamictal 100mg daily. Iron deficiency anemia - Ferrous sulfate 325mg daily, Dr. Lockett planning EGD/colonoscopy 04/25/2025. Vitamin D deficiency - D3 25mcg daily. Stroke - Aspirin 81mg daily, Plavix 75mg daily. Hyperlipidemia - Rosuvastatin 20mg qhs. Muscle spasm - Baclofen 5mg daily. Shortness of breath - Albuterol mdi prn. Tardive dyskinesia - Austedo XR 6mg daily. Dysuria - Pyridium 100mg tid prn, Dr. Garcia planning office cystoscopy. The following psychotropic medication was present on admission: Escitalopram 5mg daily. Psychotropic medication therapy is indicated for a diagnosis of: Major Depression. Based on my clinical evaluation, continuation of the medication is necessary at this time. Gradual dose reduction plan (select one): ____ GDR will be attempted. Will monitor patient symptoms and behaviors in response to GDR. ___x_ GRD contraindicated. Reason contraindicated: stable chronic long-term use. The following psychotropic medication was present on admission: Trazodone 50mg qhs. Psychotropic medication therapy is indicated for a diagnosis of: Insomnia. Based on my clinical evaluation, continuation of the medication is necessary at this time. Gradual dose reduction plan (select one): ____ GDR will be attempted. Will monitor patient symptoms and behaviors in response to GDR. __x__ GRD contraindicated. Reason contraindicated: stable chronic long-term use. The following psychotropic medication was present on admission: Clonazepam 1mg qhs. Psychotropic medication therapy is indicated for a diagnosis of: Anxiety/insomnia. Based on my clinical evaluation, continuation of the medication is necessary at this time. Gradual dose reduction plan (select one): ____ GDR will be attempted. Will monitor patient symptoms and behaviors in response to GDR. __x__ GRD contraindicated. Reason contraindicated: stable chronic long-term use.
[2025-04-20 16:34] VITALS: BP 117/53; PULSE 62; RESP 16; TEMP 36.4; O2SAT 93; BMI 20.5
[2025-04-20 17:35] LABS: Bedside Glucose 177 mg/dL (74-106)
[2025-04-20 18:30] VITALS: PULSE 62; RESP 18; O2SAT 93
--- NOTE | 2025-04-20 19:16 | NURSING ---
PER PT ,PT IS HAVING A UPPER AND LOWER SCOPE WITH ON 04/25/25.
[2025-04-20] MEDS: Cholecalciferol (VIT D3) 25 MCG TABLET (1,000 UNITS) 50 MCG PO (21:32)
[2025-04-20] MEDS: clonazePAM 1 MG Tablet PO (21:32)
[2025-04-20] MEDS: Atorvastatin Calcium 40 MG Tablet PO (21:32)
[2025-04-20] MEDS: 0.9% Saline Lock 10 ML Syringe IV (21:33)
[2025-04-20] MEDS: traZODone 50 MG Tablet PO (23:07)
[2025-04-21 06:04] LABS: Absolute Neutrophil Count 4.2 X10^3/uL (2.0-7.7); Basophil# 0.02 X10^3/uL; Basophil% 0.3 % (0-1); Eosinophil# 0.16 X10^3/uL; Eosinophils% 2.7 % (0-5); Hematocrit 30.3 % (37-47); Hemoglobin 9.7 g/dL (12.0-15.0); Lymphocyte % 18.6 % (19-41); Mean Corpuscular Hgb 31.1 pg (27.0-32.0); Mean Corpuscular Volume 97.1 fL (81-99); Mean Platelet Vol. 10.3 fl (6.2-12.0); Monocyte# 0.44 X10^3/uL; Monocyte% 7.5 % (0-10); NRBC Flagged by Analyzer 0 % (0-5); Neutrophil # 4.16 X10^3/uL (2.7-7.7); Neutrophil % 70.6 % (47-70); Platelet Count 168 K/mm3 (150-450); RBC Distribution Width CV 13.9 % (11.6-14.6); RBC Distribution Width SD 49.7 fl (35.1-43.9); Red Blood Count 3.12 M/mm3 (4.2-5.4); White Blood Count 5.9 K/mm3 (4.4-11.0)
[2025-04-21 06:49] LABS: Bedside Glucose 165 mg/dL (74-106)
[2025-04-21 07:43] LABS: Anion Gap 8 (5-15); BUN 14 mg/dL (4-19); Carbon Dioxide 27.7 mmol/L (21.0-32.0); Chloride 107 mmol/L (98-108); Creatinine, Serum 0.95 mg/dL (0.70-1.20); EST Glomerular Filtration Rate 64 (>60); Estimated Creatinine Clearance 51.79 ml/min (50-250); Glucose 185 mg/dL (70-99); Potassium 4.3 mmol/L (3.3-5.1); Sodium Level 142 mmol/L (133-145)
[2025-04-21 08:15] VITALS: O2SAT 93
[2025-04-21 08:47] VITALS: BP 103/59; PULSE 85; RESP 17; TEMP 37.7
[2025-04-21] MEDS: metFORMIN HCl 500 MG Tablet PO (09:00)
[2025-04-21] MEDS: Baclofen 10 MG Tablet 5 MG PO (09:00)
[2025-04-21] MEDS: DEUTETRABENAZINE 6 MG PO (09:01)
[2025-04-21] MEDS: Escitalopram Oxalate 10 MG Tablet 5 MG PO (09:02)
[2025-04-21] MEDS: lamoTRIgine 100 MG Tablet PO (09:02)
[2025-04-21] MEDS: Polyethylene Glycol 3350 17 GM PACKET PO (09:02)
[2025-04-21 09:03] VITALS: PULSE 85
[2025-04-21] MEDS: Pantoprazole Sodium 40 MG Tablet PO (09:03)
[2025-04-21] MEDS: Tuberculin,Purif.prot.deriv. 50 TU/ML Vial 0.1 ML ID (09:03)
[2025-04-21] MEDS: Metoprolol(XL)Succ 25 MG Tablet PO (09:03)
--- NOTE | 2025-04-21 11:22 | PCM.PN.DRR ---
Documented by User: Talat Cameron 04/21/25 12:12 TCU RX Drug Regimen Review Subjective/Objective Subjective/Objective Subjective: TCU admission. 70 year old female with below past medical history hospitalized for weakness, no reversible cause of weakness found, admitted to TCU with debility, here for rehabilitation, strengthening, prior to discharge home with . Objective: Allergies No Known Allergies Allergy (Verified 04/19/25 03:35) Current Medications Generic Name Dose Route Start Last Admin Trade Name Freq PRN Reason Stop Dose Admin Acetaminophen 1,000 mg 04/20/25 16:54 Acetaminophen 500 Mg Tablet PO Q6H PRN PRN Pain Score 1-10 Albuterol Sulfate 1 puff 04/20/25 17:56 Albuterol Ih (6.7 Gm) 1 Puff Inhaler INHALATION Q6H PRN shortness of breath or wheezing Aspirin 81 mg 04/22/25 10:00 Aspirin 81 Mg Tab.Chew PO QODAY VERONA Atorvastatin Calcium 40 mg 04/20/25 22:00 04/20/25 21:32 Atorvastatin Calcium 40 Mg Tablet PO 40 mg QHS VERONA Administration Baclofen 5 mg 04/21/25 08:00 04/21/25 09:00 Baclofen 10 Mg Tablet PO 5 mg DAILYCM VERONA Administration Cholecalciferol 50 mcg 04/20/25 22:00 04/20/25 21:32 Cholecalciferol (Vit D3) 25 Mcg Tablet (1,000 Units) PO 50 mcg QHS VERONA Administration Clonazepam 1 mg 04/20/25 22:00 04/20/25 21:32 Clonazepam 1 Mg Tablet PO 1 mg QHS VERONA Administration Clopidogrel Bisulfate 75 mg 04/23/25 10:00 Clopidogrel Bisulfate 75 Mg Tablet PO MoWeFr [facility] Escitalopram Oxalate 5 mg 04/21/25 10:00 04/21/25 09:02 Escitalopram Oxalate 10 Mg Tablet PO 5 mg DAILY VERONA Administration Ferrous Sulfate 325 mg 04/21/25 12:00 Ferrous Sulfate 325 Mg Tablet PO DAILY@1200 VERONA Furosemide 20 mg 04/20/25 16:41 Furosemide 20 Mg Tablet PO DAILY PRN PRN for 2lb weight gain Protocol Glycerin/Hypromellose/Polyethylene 1 drp 04/20/25 18:04 Glycerin/Hypromellose/[id number] 15 Ml Bottle EACH EYE Q1H PRN PRN Dry eyes Hyoscyamine Sulfate 0.125 mg 04/20/25 18:01 Hyoscyamine Sulfate 0.125 Mg Tablet PO TID PRN dyspepsia Lamotrigine 100 mg 04/21/25 10:00 04/21/25 09:02 Lamotrigine 100 Mg Tablet PO 100 mg DAILY VERONA Administration Metformin HCl 500 mg 04/21/25 08:00 04/21/25 09:00 Metformin Hcl 500 Mg Tablet PO 500 mg DAILYCM VERONA Administration Metoprolol Succinate 25 mg 04/21/25 10:00 04/21/25 09:03 Metoprolol(Xl)Succ 25 Mg Tablet PO 25 mg DAILY VERONA Administration Protocol Non-Formulary Medication 145 mcg 04/21/25 10:00 Linaclotide [Linzess] PO QAM [facility] Oxycodone HCl 5 mg 04/20/25 18:07 Oxycodone 5 Mg Tablet PO Q6H PRN PRN Pain Score 6-10 Pantoprazole Sodium 40 mg 04/21/25 10:00 04/21/25 09:03 Pantoprazole Sodium 40 Mg Tablet PO 40 mg DAILY VERONA Administration Phenazopyridine HCl 95 mg 04/20/25 18:03 Phenazopyridine 95 Mg Tablet PO TID PRN PRN bladder pain Polyethylene Glycol 17 gm 04/21/25 10:00 04/21/25 09:02 Polyethylene Glycol 3350 17 Gm Packet PO 17 gm DAILY VERONA Administration Sodium Chloride 10 - 40 ml 04/20/25 16:48 04/20/25 21:33 0.9% Saline Lock 10 Ml Syringe IV 10 ml UD PRN Administration SALINE FLUSH Trazodone HCl 50 mg 04/20/25 22:00 04/20/25 23:07 Trazodone 50 Mg Tablet PO 50 mg QHS VERONA Administration Tuberculin PPD 0.1 ml 04/28/25 10:00 Tuberculin,Purif.Prot.Deriv. 50 Tu/Ml Vial ID 04/28/25 10:01 X1 ONE Problem List Diabetes mellitus (Acute) Irritable bowel syndrome (Acute) Calcium deficiency (Acute) CVA (cerebral vascular accident) (Acute) Ischemic colitis (Acute) Chronic systolic heart failure (Chronic) Insomnia (Acute) Overactive bladder (Acute) Muscle spasm (Acute) GERD (gastroesophageal reflux disease) (Acute) Vitamin D deficiency (Acute) Depression (Acute) Debility (Acute) HLD (hyperlipidemia) (Chronic) Vital Signs Temp Pulse Resp BP Pulse Ox O2 Del Method 99.9 F H 85 17 103/59 L 93 Room Air 04/21/25 08:47 04/21/25 09:03 04/21/25 08:47 04/21/25 08:47 04/21/25 08:15 04/21/25 08:47 Oxygen Delivery Method Room Air Weight: 61.262 kg Body Mass Index (BMI) 20.5 Sodium 142 mmol/L (133-145) 04/21/25 05:16 Potassium 4.3 mmol/L (3.3-5.1) 04/21/25 05:16 Chloride 107 mmol/L (98-108) 04/21/25 05:16 Carbon Dioxide 27.7 mmol/L (21.0-32.0) 04/21/25 05:16 Anion Gap 8 (5-15) 04/21/25 05:16 BUN 14 mg/dL (4-19) 04/21/25 05:16 Creatinine 0.95 mg/dL (0.70-1.20) 04/21/25 05:16 Est GFR (MDRD) Non-Af 64 (>60) 04/21/25 05:16 BUN/Creatinine Ratio 15.0 RATIO (10-20) 04/21/25 05:16 Glucose 185 mg/dL (70-99) H 04/21/25 05:16 Assessment/Plan: 1. Pain: acetaminophen 1000 mg Q6H PRN pain, oxycodone 5 mg PO Q6H PRN pain. The patient has not required any PRN doses of acetaminophen or oxycodone so far this admission. Please continue to monitor pain levels, for PRN medication usage, LFTs (AST/ALT = 19/21 U/L on 11/18/24), for constipation, respiratory depression, syncope/ataxia/falls, and dizziness/drowsiness. 2. Bowel: polyethylene glycol 17 grams PO daily, Linzess 145 mcg PO daily. Please continue to monitor for diarrhea, constipation, and bowel movements (last = BM on 04/21/25). 3. Chronic HFrEF: metoprolol succinate 25 mg PO daily, furosemide 20 mg PO daily PRN 2 lb weight gain. The patient has not required any PRN furosemide so far this admission. Please continue to monitor for s/s fo a heart failure exacerbation such as shortness of breath, leg swelling, JVD, renal function (serum creatinine = 0.95 mg/dL with creatinine clearance ~ 52 mL/min on 04/21/25), sodium levels (Na = 142 mmol/L on 04/21/25), potassium levels (K = 4.3 mmol/L on 04/21/25), calcium levels (Ca = 9.0 mg/dL on 04/21/25), heart rates (recent range = 60-85 beats/min), blood pressures (recent range = 94-193/40-91 mmHg), and for fatigue. 4. Dysuria: phenazopyridine 95 mg PO TID PRN bladder pain. The patient has not required any PRN doses of phenazopyridine so far this admission. Please continue to monitor for dysuria, and PRN medication usage. 5. GERD: pantoprazole 40 mg PO daily, hyoscyamine 0.125 mg PO TID PRN dyspepsia. The patient has not required any PRN doses of hyoscyamine so far this admission. Please continue to monitor heart rates (recent range = 60-85 beats/min), for flushing and palpitations, dizziness/drowsiness, for diarrhea that could indicate clostridium difficile infection, for s/s of GERD, and for s/s of bone resorption such as fractures. 6. Diabetes Mellitus II: metformin 500 mg PO daily. Please continue to monitor BG levels (recent range = 153-260 mg/dL), hemoglobin A1C levels (A1C = 7.0% on 02/22/24), renal function (serum creatinine = 0.95 mg/dL with creatinine clearance ~ 52 mL/min with eGFR = ~64 mL/min on 04/21/25), vitamin B12 levels (B12 = 1211 pg/mL on 07/17/24), as well as for GI distress with metformin administration. The patient's recent blood glucose readings have been elevated above her goal range, and the patient does not have a recent A1C to corroborate her readings. Please consider increasing metformin to 1000 mg PO daily and obtaining an A1C if clinically appropriate. 7. Hyperlipidemia: atorvastatin 40 mg PO QHS. Please continue to monitor lipid levels (cholesterol = 106 mg/dL with LDL = 36 mg/dL on 09/29/25), LFTs (AST/ALT = 19/21 U/L on 11/18/24), and for myalgias. Please consider ordering a lipid panel if clinically appropriate as the patient has not had one in > 1 year. 8. Stroke: aspirin 81 mg PO every other day, clopidogrel 75 mg PO daily. Please continue to monitor for s/s of stroke, for s/s of bleeding/excessive bruising, hemoglobin levels (Hgb = 9.7 g/dL on 04/21/25), platelet counts (Plt = 168 K/mm3 on 04/21/25), as well as for GI distress with aspirin administration. 9. Iron deficiency anemia: ferrous sulfate 325 mg PO daily. Please continue to monitor hemoglobin levels (Hgb = 9.7 g/dL on 04/21/25), iron levels (iron = 74 ug/dL on 01/22/25), as well as for GI distress with iron administration. 10. Vitamin D deficiency: cholecalciferol 50 mcg PO daily. Please continue to monitor vitamin D levels (vitamin D = 54.2 ng/mL on 03/02/24), and for s/s of vitamin D deficiency. 11. Dry eyes: artificial tears 1 drop in each eye every hour PRN dry eyes. The patient has not required any PRN doses of artificial tears so far this admission. Please continue to monitor for dry eyes and PRN medication administration. 12. Shortness of breath: albuterol 1 puff every 6 hours as needed for shortness of breath/wheezing. The patient has not required any PRN doses of albuterol so far this admission. Please continue to monitor for shortness of breath/wheezing and for PRN medication usage. 13. Muscle spasms: baclofen 5 mg PO daily. Please continue to monitor for muscle spasms, for confusion/dizziness/drowsiness/asthenia, nausea/vomiting, and blood pressures (recent range = 94-193/40-91 mmHg). Assessment/Plan for indications treated with psychotropic medications: 1. Tardive dyskinesia: deutetrabenazine 6 mg PO daily. This is a stable chronic long chain quiller tender medication, GDR not recommended. Monitor for efficacy including resident symptoms, behaviors and indications of distress. Monitor for abnormal movements. Monitor for tolerability including mental status, cognition, excessive sleepiness, withdrawal or decreased participation in activities and decline in physical functioning. Monitor for drowsiness, fatigue, diarrhea, dry mouth and UTI. Maximize use of nonpharmacologic/behavioral interventions to facilitate dose reduction or discontinuation as appropriate. Please evaluate the appropriateness of GDR unless contraindicated. If appropriate, GDR should be attempted in 2 separate quarters within the first year of use or admission to TCU. If GDR attempted, monitor resident symptoms/behaviors. 2. Anxiety/insomnia: lamotrigine 100 mg PO daily, trazodone 50 mg PO daily, clonazepam 1 mg PO QHS.. These are stable chronic long-term medications, GDR not recommended. Monitor for efficacy including resident symptoms, behaviors and indications of distress. Monitor for anxiety and panic attacks. Monitor for tolerability including mental status, cognition, excessive sleepiness, withdrawal or decreased participation in activities and decline in physical functioning. Monitor sodium levels (Na = 142 mmol/L on 04/21/25), and renal function (serum creatinine = 0.95 mg/dL with creatinine clearance ~ 52 mL/min on 04/21/25), and drowsiness/ataxia/confusion. Maximize use of nonpharmacologic/behavioral interventions to facilitate dose reduction or discontinuation as appropriate. Please evaluate the appropriateness of GDR unless contraindicated. If appropriate, GDR should be attempted in 2 separate quarters within the first year of use or admission to TCU. If GDR attempted, monitor resident symptoms/behaviors. Monitor for sedation, mental status and cognition. Monitor for falls (risk factor for falls) and implement fall prevention strategies. Monitor for respiratory depression. RR range since admission = 16-18 breaths/min. Monitor for drowsiness, dizziness or confusion, dry mouth, constipation, symptoms of serotonin syndrome (including agitation, confusion, hyperreflexia, rigidity/myoclonus, tremor, tachycardia, tachypnea), suicidal thoughts or behaviors (Boxed Warning). Monitor HR (can cause bradycardia or tachycardia). HR range since admission = 60-85 beats/min Monitor for orthostatic hypotension, including postural dizziness, syncope or falls. Check orthostatic vital signs if suspicion of orthostasis. QT on last ECG = 501 ms on 03/10/25 3. Major depression: escitalopram 5 mg PO daily. Please see provider note regarding stable chronic long-term use GDR not recommended. Monitor for efficacy including resident symptoms, behaviors and indications of distress. Monitor for depression and SI. Monitor for tolerability including mental status, cognition, excessive sleepiness, withdrawal or decreased participation in activities and decline in physical functioning. Maximize use of nonpharmacologic/behavioral interventions to facilitate dose reduction or discontinuation as appropriate. Please evaluate the appropriateness of GDR unless contraindicated. If appropriate, GDR should be attempted in 2 separate quarters within the first year of use or admission to TCU. If GDR attempted, monitor resident symptoms/behaviors.Monitor for diarrhea, nausea, headache, anxiety or drowsiness, suicidal thoughts or behaviors (Boxed Warning), symptoms of bleeding, symptoms of serotonin syndrome (including agitation, confusion, hyperreflexia, rigidity/myoclonus, tremor, tachycardia, tachypnea), sodium levels (last Na = 142 mmol/L on 04/21/25). Medical chart and medication regimen reviewed. The following medication irregularities or issues were identified: 1. Diabetes Mellitus II: metformin 500 mg PO daily. The patient's recent blood glucose readings have been elevated above her goal range, and the patient does not have a recent A1C to corroborate her readings. Please consider increasing metformin to 1000 mg PO daily and obtaining an A1C if clinically appropriate. 2. Hyperlipidemia: atorvastatin 40 mg PO QHS. Please consider ordering a lipid panel if clinically appropriate as the patient has not had one in > 1 year. Date Date of Note: 04/21/25 Documented by User: Dr. Alonso Marte MD 04/21/25 18:13 TCU RX Drug Regimen Review Provider Comments Provider responsibility Provider Comments to Recommendations by Pharmacy Agree
[2025-04-21] MEDS: Ferrous Sulfate 325 MG Tablet PO (12:51)
[2025-04-21] MEDS: oxyCODONE 5 MG Tablet PO (15:24)
[2025-04-21 17:37] LABS: Bedside Glucose 139 mg/dL (74-106)
[2025-04-21] MEDS: traZODone 50 MG Tablet PO (21:57)
[2025-04-21] MEDS: clonazePAM 1 MG Tablet PO (21:58)
[2025-04-21] MEDS: Cholecalciferol (VIT D3) 25 MCG TABLET (1,000 UNITS) 50 MCG PO (21:58)
[2025-04-21] MEDS: Atorvastatin Calcium 40 MG Tablet PO (21:58)
[2025-04-21 22:07] VITALS: PULSE 71; RESP 16; O2SAT 94
[2025-04-22 06:35] LABS: Cholesterol 88 mg/dL (<=200); High Density Lipoprotein 23 mg/dL; Low Density Lipoprotein Calc. 31 mg/dL; Triglycerides 166 mg/dL; Very Low Density Lipoprotein 33 mg/dL (5-40); cholesterol:hdl ratio screen 3.76
[2025-04-22 06:36] LABS: Bedside Glucose 170 mg/dL (74-106)
[2025-04-22 07:01] LABS: Hemoglobin A1c 7.6 % (<=5.6)
[2025-04-22 08:16] VITALS: BP 98/53; PULSE 72; RESP 17; TEMP 37.1; O2SAT 96
[2025-04-22] MEDS: metFORMIN HCl 500 MG Tablet PO (08:31)
[2025-04-22] MEDS: Baclofen 10 MG Tablet 5 MG PO (08:31)
[2025-04-22] MEDS: DEUTETRABENAZINE 6 MG PO (08:32)
[2025-04-22] MEDS: lamoTRIgine 100 MG Tablet PO (08:32)
[2025-04-22] MEDS: Escitalopram Oxalate 10 MG Tablet 5 MG PO (08:33)
[2025-04-22] MEDS: Linacolotide 145 MCG CAPSULE PO (08:33)
[2025-04-22] MEDS: Polyethylene Glycol 3350 17 GM PACKET PO (08:34)
[2025-04-22] MEDS: Pantoprazole Sodium 40 MG Tablet PO (08:34)
[2025-04-22 11:06] VITALS: BP 107/54; PULSE 66
[2025-04-22] MEDS: Metoprolol(XL)Succ 25 MG Tablet PO (11:06)
[2025-04-22] MEDS: Ferrous Sulfate 325 MG Tablet PO (11:07)
--- NOTE | 2025-04-22 12:26 | NURSING ---
messaged dr chacon to notify pt is on TCU and request orders for EGD and colonoscopy pre
--- NOTE | 2025-04-22 15:52 | NURSING ---
messaged dr chacon to make sure he was aware pt scheduled for EGD that was scheduled as outpatient- asked for orders to prep for egd and colonoscopy
[2025-04-22] MEDS: oxyCODONE 5 MG Tablet PO (16:16)
[2025-04-22 16:37] LABS: Bedside Glucose 191 mg/dL (74-106)
--- NOTE | 2025-04-22 16:44 | NURSING ---
spoke with dr cai about aspirin and upcoming egd- dr cai ok to hold aspirin until after egd on 04/25
[2025-04-22] MEDS: traZODone 50 MG Tablet PO (20:43)
[2025-04-22] MEDS: Atorvastatin Calcium 40 MG Tablet PO (20:45)
[2025-04-22] MEDS: Cholecalciferol (VIT D3) 25 MCG TABLET (1,000 UNITS) 50 MCG PO (20:46)
[2025-04-22] MEDS: clonazePAM 1 MG Tablet PO (20:52)
[2025-04-23 06:50] LABS: Bedside Glucose 197 mg/dL (74-106)
[2025-04-23 09:10] VITALS: BP 101/48; PULSE 79; RESP 17; TEMP 36.8; O2SAT 94
[2025-04-23] MEDS: Baclofen 10 MG Tablet 5 MG PO (09:19)
[2025-04-23] MEDS: metFORMIN HCl 500 MG Tablet PO ×2 (09:19→17:27)
[2025-04-23] MEDS: DEUTETRABENAZINE 6 MG PO (09:21)
[2025-04-23] MEDS: lamoTRIgine 100 MG Tablet PO (09:21)
[2025-04-23] MEDS: Escitalopram Oxalate 10 MG Tablet 5 MG PO (09:22)
[2025-04-23 09:23] VITALS: PULSE 79
[2025-04-23] MEDS: Linacolotide 145 MCG CAPSULE PO (09:23)
[2025-04-23] MEDS: Polyethylene Glycol 3350 17 GM PACKET PO (09:23)
[2025-04-23] MEDS: Metoprolol(XL)Succ 25 MG Tablet PO (09:23)
[2025-04-23] MEDS: Pantoprazole Sodium 40 MG Tablet PO (09:23)
--- NOTE | 2025-04-23 12:29 | NURSING ---
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 She has been a resident in the past and continues to be independent. She has her smartphone, will watch tv, read and family will visits daily. She has stated she prefers to not have pet or chap[[id number] visits as before. Staff will remind her of weekly activities and respect her right to say no.
--- NOTE | 2025-04-23 13:45 | NURSING ---
Offered covid vaccine, VIS provided. Resident declines.
--- NOTE | 2025-04-23 15:14 | CASEMGMT ---
Social Work SW attempted to complete assessment with pt, but pt tired and requested for this worker to return. Ute Gutierrez CONSULTING PROJECT DIRECTOR SALES PROMOTION DIRECTOR
[2025-04-23 17:08] LABS: Bedside Glucose 166 mg/dL (74-106)
[2025-04-23] MEDS: oxyCODONE 5 MG Tablet PO (17:27)
[2025-04-23] MEDS: clonazePAM 1 MG Tablet PO (21:58)
[2025-04-23] MEDS: traZODone 50 MG Tablet PO (21:58)
[2025-04-23] MEDS: Atorvastatin Calcium 40 MG Tablet PO (21:58)
[2025-04-23] MEDS: Cholecalciferol (VIT D3) 25 MCG TABLET (1,000 UNITS) 50 MCG PO (21:58)
[2025-04-24 06:31] LABS: Bedside Glucose 142 mg/dL (74-106)
[2025-04-24 09:27] VITALS: BP 102/45; PULSE 84; RESP 16; TEMP 36.9; O2SAT 93
[2025-04-24] MEDS: Polyethylene Glycol 3350 17 GM PACKET PO (09:32)
[2025-04-24] MEDS: Linacolotide 145 MCG CAPSULE PO (09:37)
[2025-04-24] MEDS: Escitalopram Oxalate 10 MG Tablet 5 MG PO (09:38)
[2025-04-24] MEDS: DEUTETRABENAZINE 6 MG PO (09:41)
[2025-04-24] MEDS: lamoTRIgine 100 MG Tablet PO (09:41)
[2025-04-24] MEDS: Baclofen 10 MG Tablet 5 MG PO (09:42)
[2025-04-24] MEDS: metFORMIN HCl 500 MG Tablet PO ×2 (09:43→18:07)
[2025-04-24 09:44] VITALS: PULSE 84
[2025-04-24] MEDS: Pantoprazole Sodium 40 MG Tablet PO (09:44)
[2025-04-24] MEDS: Metoprolol(XL)Succ 25 MG Tablet PO (09:44)
--- NOTE | 2025-04-24 10:13 | NURSING ---
Received $22 from pt for haircut per pt had haircut already. Will put in envelope and give to wheelchair rental clerk.
[2025-04-24] MEDS: Bisacodyl 5 MG Tablet 20 MG PO (15:46)
--- NOTE | 2025-04-24 15:47 | CASEMGMT ---
Social Work SW met with patient to complete initial assessment. Pt known to this worker from previous stay. Verified contacts. Discussed code status and pt wishes to be DNR-CC. Nursing notified. SW educated to [facility] [place] insurance with NRD 04/23 and continued stay is not guaranteed with each review; provides a 3-day notice for DC. Pt's goal is to return home with continuing to assist her. IDT concerned with pt's mental health. See SW assessment for details. SW will continue to follow for DC planning. Ute Gutierrez PSYCHIATRIC NURSING ASSISTANT NATIONAL INVESTIGATIVE PRODUCER
[2025-04-24 17:17] LABS: Bedside Glucose 128 mg/dL (74-106)
[2025-04-24] MEDS: Polyethylene Glycol 3350 BOWEL PREP PO (18:05)
[2025-04-24] MEDS: clonazePAM 1 MG Tablet PO (22:15)
[2025-04-24] MEDS: traZODone 50 MG Tablet PO (22:16)
[2025-04-24] MEDS: Atorvastatin Calcium 40 MG Tablet PO (22:16)
[2025-04-24] MEDS: Cholecalciferol (VIT D3) 25 MCG TABLET (1,000 UNITS) 50 MCG PO (22:16)
[2025-04-25 06:07] VITALS: BP 134/55; PULSE 73; RESP 16; TEMP 36.7; O2SAT 96; BMI 20.4
--- NOTE | 2025-04-25 06:35 | NURSING ---
Patient transferred off unit for procedure.
[2025-04-25 09:01] VITALS: BP 111/51; PULSE 61; RESP 16; TEMP 36.6; O2SAT 97
[2025-04-25] MEDS: DEUTETRABENAZINE 6 MG PO (09:07)
[2025-04-25] MEDS: Pantoprazole Sodium 40 MG Tablet PO (09:07)
[2025-04-25] MEDS: Escitalopram Oxalate 10 MG Tablet 5 MG PO (09:07)
[2025-04-25] MEDS: Linacolotide 145 MCG CAPSULE PO (09:07)
[2025-04-25 09:08] VITALS: PULSE 61
[2025-04-25] MEDS: Metoprolol(XL)Succ 25 MG Tablet PO (09:08)
[2025-04-25] MEDS: metFORMIN HCl 500 MG Tablet PO ×2 (09:08→16:53)
[2025-04-25] MEDS: Baclofen 10 MG Tablet 5 MG PO (09:08)
[2025-04-25] MEDS: lamoTRIgine 100 MG Tablet PO (09:08)
[2025-04-25] MEDS: Ferrous Sulfate 325 MG Tablet PO (13:10)
--- NOTE | 2025-04-25 15:52 | CASEMGMT ---
BIMS () and PHQ9 (10) interviews completed on this date for MDS assessment. SW explored pt feelings of depression. Pt presents with diagnosis of depression and insomnia and is currently taking Lexapro, trazodone and Klonopin. PT states she is so sick recently and this has triggered loss of interest and feels physical decline over last year contribute to depression. She also had an old stroke (not sure when) that left disability and is frustrating for pt. PT states that she sometimes feels she might be better off and said I wonder about going to see my mother. but denies any thoughts of suicide at this time. Pt's states suicidal thoughts were present in 2009, but not since. SW provided emotional support. Pt providing shortened life review and discussing moving to [place] from [place]. Pt's spouse is very supportive. ROXANA updated YANY Unger of pt mood. SW will remain available for support. EDUARDO Mustafa
[2025-04-25 16:36] VITALS: BMI 20.4
[2025-04-25 16:43] LABS: Bedside Glucose 200 mg/dL (74-106)
[2025-04-25] MEDS: Ensure Plus High Protein 120 ML LIQUID PO (16:52)
[2025-04-25 20:00] VITALS: PULSE 64; O2SAT 94
[2025-04-25] MEDS: clonazePAM 0.5 MG Tablet PO (22:46)
[2025-04-25] MEDS: traZODone 50 MG Tablet 25 MG PO (22:47)
[2025-04-25] MEDS: Atorvastatin Calcium 40 MG Tablet PO (22:47)
[2025-04-25] MEDS: Cholecalciferol (VIT D3) 25 MCG TABLET (1,000 UNITS) 50 MCG PO (22:47)
[2025-04-26 06:37] LABS: Bedside Glucose 147 mg/dL (74-106)
[2025-04-26] MEDS: Mesalamine 1.2 GM Tablet 2.4 GM PO (09:46)
[2025-04-26] MEDS: Linacolotide 145 MCG CAPSULE PO (09:47)
[2025-04-26] MEDS: DEUTETRABENAZINE 6 MG PO (09:47)
[2025-04-26] MEDS: Aspirin 81 MG TAB.CHEW PO (09:47)
[2025-04-26] MEDS: Pantoprazole Sodium 40 MG Tablet PO (09:47)
[2025-04-26] MEDS: lamoTRIgine 100 MG Tablet PO (09:47)
[2025-04-26] MEDS: Escitalopram Oxalate 10 MG Tablet 5 MG PO (09:47)
[2025-04-26] MEDS: Menthol/Lanolin/Calamine/Znox 113 GM Tube 1 APPLIC TOPICAL (09:49)
[2025-04-26 09:50] VITALS: BP 95/53; PULSE 77; RESP 16; TEMP 37.2; O2SAT 96
[2025-04-26] MEDS: Ensure Plus High Protein 120 ML LIQUID PO ×3 (09:50→17:04)
[2025-04-26] MEDS: metFORMIN HCl 500 MG Tablet PO ×2 (09:50→17:04)
[2025-04-26 09:51] VITALS: BP 95/53; PULSE 77
--- NOTE | 2025-04-26 10:00 | CASEMGMT ---
Social Work IDT met with patient and for care plan meeting. Discussed patient's progress in PT/OT/ST/SN. Educated to [facility] insurance with [employer] / and continued stay is not guaranteed with each review. Provided pt/family with written communication of insurance process and copay coverage during stay. IDT recommending manage all cognitive tasks, such as meds and finances. Pt needs some physical assistance and cues with ADLs. was providing assistance at home prior. SW inquired about the goal for DC. Both confirmed DC home and can continue assisting. SW explored pt's mental health further. Explained SW coworker completed PHQ-9 yesterday and pt reported depression. SW expressed IDT concern with pt's current medications d/t excessive daytime drowsiness, but also pt continues to report severe depression. stated pt sees a psychiatrist who manages the medications, seeing it every 3 months, due this month. SW encouraged to voice concerns to psychiatrist if changes need to be explored. Dr. Marte will not adjust meds since psych is involved. agreed. SW encouraged pt to come out of room, eat meals in the dining room, offered for to eat meals out of room with pt as well during visits, and opening room window blinds, to allow natural light as a natural mood boost. Pt agreeable to suggestions. SW left written notification to supervisor nuclear medicine to have pt eat lunch out of room. SW opened one window blind. Offered ongoing assistance and support during stay. - ROXANA noted after meeting pt and did come out of room and socialize in the [facility] [place]. SW praised pt. Ute Gutierrez AGRICULTURE ENGINEER ERGONOMIST
--- NOTE | 2025-04-26 10:55 | MDS.RN ---
Pain assessment for MDS complete.
[2025-04-26] MEDS: Ferrous Sulfate 325 MG Tablet PO (14:00)
--- NOTE | 2025-04-26 16:05 | NURSING ---
Friend present in room notified spouse of pt per pt request.
[2025-04-26 16:25] LABS: Bedside Glucose 163 mg/dL (74-106)
[2025-04-26 20:30] VITALS: PULSE 66; RESP 15; O2SAT 94
[2025-04-26] MEDS: traZODone 50 MG Tablet 25 MG PO (21:22)
[2025-04-26] MEDS: clonazePAM 0.5 MG Tablet PO (21:23)
[2025-04-26] MEDS: Cholecalciferol (VIT D3) 25 MCG TABLET (1,000 UNITS) 50 MCG PO (21:31)
[2025-04-26] MEDS: Atorvastatin Calcium 40 MG Tablet PO (21:31)
[2025-04-27 05:52] LABS: Absolute Lymphocyte Count 1.65 X10^3/uL (0.83-4.51); Absolute Neutrophil Count 2.8 X10^3/uL (2.0-7.7); Basophil# 0.02 X10^3/uL; Basophil% 0.4 % (0-1); Eosinophil# 0.17 X10^3/uL; Eosinophils% 3.2 % (0-5); Hematocrit 27.8 % (37-47); Lymphocyte # 1.65 X10^3/ul (0.83-4.51); Lymphocyte % 31.1 % (19-41); Mean Corp Hgb Conc 32.4 g/dL (32-36); Mean Corpuscular Hgb 30.8 pg (27.0-32.0); Mean Corpuscular Volume 95.2 fL (81-99); Mean Platelet Vol. 9.9 fl (6.2-12.0); Monocyte# 0.65 X10^3/uL; Monocyte% 12.2 % (0-10); NRBC Flagged by Analyzer 0 % (0-5); Neutrophil % 52.7 % (47-70); Platelet Count 202 K/mm3 (150-450); RBC Distribution Width CV 13.4 % (11.6-14.6); RBC Distribution Width SD 46.8 fl (35.1-43.9); Red Blood Count 2.92 M/mm3 (4.2-5.4); White Blood Count 5.3 K/mm3 (4.4-11.0)
[2025-04-27 06:21] LABS: Bedside Glucose 158 mg/dL (74-106)
[2025-04-27 06:22] LABS: Anion Gap 9 (5-15); BUN 12 mg/dL (4-19); BUN/Creat Ratio 12.8 RATIO (10-20); Calcium,Total 8.7 mg/dL (7.6-11.0); Carbon Dioxide 25.1 mmol/L (21.0-32.0); Chloride 107 mmol/L (98-108); Creatinine, Serum 0.95 mg/dL (0.70-1.20); EST Glomerular Filtration Rate 63 (>60); Estimated Creatinine Clearance 51.52 ml/min (50-250); Glucose 139 mg/dL (70-99); Potassium 3.9 mmol/L (3.3-5.1); Sodium Level 141 mmol/L (133-145)
[2025-04-27] MEDS: metFORMIN HCl 500 MG Tablet PO ×2 (09:31→17:52)
[2025-04-27] MEDS: Ensure Plus High Protein 120 ML LIQUID PO ×3 (09:31→17:51)
[2025-04-27] MEDS: DEUTETRABENAZINE 6 MG PO (09:40)
[2025-04-27] MEDS: lamoTRIgine 100 MG Tablet PO (09:40)
[2025-04-27] MEDS: Linacolotide 145 MCG CAPSULE PO (09:40)
[2025-04-27] MEDS: Escitalopram Oxalate 10 MG Tablet 5 MG PO (09:40)
[2025-04-27 09:41] VITALS: BP 121/59; PULSE 79
[2025-04-27] MEDS: Pantoprazole Sodium 40 MG Tablet PO (09:41)
[2025-04-27] MEDS: Metoprolol(XL)Succ 25 MG Tablet PO (09:41)
[2025-04-27] MEDS: Clopidogrel Bisulfate 75 MG Tablet PO (09:41)
[2025-04-27] MEDS: Mesalamine 1.2 GM Tablet 2.4 GM PO (09:41)
[2025-04-27 09:47] VITALS: BP 121/59; PULSE 79; RESP 16; TEMP 37.2; O2SAT 96
[2025-04-27] MEDS: Ferrous Sulfate 325 MG Tablet PO (12:13)
[2025-04-27] MEDS: oxyCODONE 5 MG Tablet PO (14:29)
[2025-04-27 16:52] LABS: Bedside Glucose 134 mg/dL (74-106)
[2025-04-27] MEDS: traZODone 50 MG Tablet 25 MG PO (21:29)
[2025-04-27] MEDS: clonazePAM 0.5 MG Tablet PO (21:29)
[2025-04-27] MEDS: Cholecalciferol (VIT D3) 25 MCG TABLET (1,000 UNITS) 50 MCG PO (21:29)
[2025-04-27] MEDS: Atorvastatin Calcium 40 MG Tablet PO (21:29)
[2025-04-28 06:55] LABS: Bedside Glucose 120 mg/dL (74-106)
[2025-04-28 07:27] LABS: Absolute Lymphocyte Count 1.57 X10^3/uL (0.83-4.51); Absolute Neutrophil Count 3.1 X10^3/uL (2.0-7.7); Basophil# 0.03 X10^3/uL; Basophil% 0.5 % (0-1); Eosinophils% 3.7 % (0-5); Hematocrit 27.9 % (37-47); Hemoglobin 9.1 g/dL (12.0-15.0); Lymphocyte # 1.57 X10^3/ul (0.83-4.51); Lymphocyte % 28.7 % (19-41); Mean Corp Hgb Conc 32.6 g/dL (32-36); Mean Corpuscular Hgb 30.8 pg (27.0-32.0); Mean Corpuscular Volume 94.6 fL (81-99); Mean Platelet Vol. 10.3 fl (6.2-12.0); Monocyte# 0.55 X10^3/uL; Monocyte% 10.1 % (0-10); NRBC Flagged by Analyzer 0 % (0-5); Neutrophil # 3.11 X10^3/uL (2.7-7.7); Neutrophil % 56.8 % (47-70); Platelet Count 199 K/mm3 (150-450); RBC Distribution Width CV 13.3 % (11.6-14.6); RBC Distribution Width SD 45.7 fl (35.1-43.9); Red Blood Count 2.95 M/mm3 (4.2-5.4); White Blood Count 5.5 K/mm3 (4.4-11.0)
[2025-04-28 07:52] LABS: Anion Gap 9 (5-15); BUN 15 mg/dL (4-19); BUN/Creat Ratio 15.9 RATIO (10-20); Calcium,Total 8.7 mg/dL (7.6-11.0); Carbon Dioxide 25.9 mmol/L (21.0-32.0); Chloride 105 mmol/L (98-108); Creatinine, Serum 0.97 mg/dL (0.70-1.20); EST Glomerular Filtration Rate 62 (>60); Estimated Creatinine Clearance 50.45 ml/min (50-250); Glucose 140 mg/dL (70-99); Potassium 3.8 mmol/L (3.3-5.1); Sodium Level 140 mmol/L (133-145)
[2025-04-28] MEDS: metFORMIN HCl 500 MG Tablet PO ×2 (08:15→18:18)
[2025-04-28] MEDS: Ensure Plus High Protein 120 ML LIQUID PO ×2 (08:15→11:37)
[2025-04-28] MEDS: Escitalopram Oxalate 10 MG Tablet 5 MG PO (08:16)
[2025-04-28] MEDS: Aspirin 81 MG TAB.CHEW PO (08:17)
[2025-04-28] MEDS: Pantoprazole Sodium 40 MG Tablet PO (08:17)
[2025-04-28] MEDS: lamoTRIgine 100 MG Tablet PO (08:17)
[2025-04-28] MEDS: DEUTETRABENAZINE 6 MG PO (08:19)
[2025-04-28] MEDS: Linacolotide 145 MCG CAPSULE PO (08:19)
[2025-04-28] MEDS: Mesalamine 1.2 GM Tablet 2.4 GM PO (08:20)
[2025-04-28 08:26] VITALS: BP 120/51; PULSE 73
[2025-04-28] MEDS: Metoprolol(XL)Succ 25 MG Tablet PO (08:26)
[2025-04-28 10:00] VITALS: PULSE 73; RESP 16
[2025-04-28] MEDS: Tuberculin,Purif.prot.deriv. 50 TU/ML Vial 0.1 ML ID (11:33)
[2025-04-28] MEDS: Ferrous Sulfate 325 MG Tablet PO (11:34)
[2025-04-28] MEDS: oxyCODONE 5 MG Tablet PO (11:49)
[2025-04-28] MEDS: Ondansetron ODT 4 MG Tablet PO (14:21)
[2025-04-28 16:00] VITALS: BP 120/51; PULSE 73; RESP 16; TEMP 36.8; O2SAT 93
[2025-04-28 17:45] LABS: Bedside Glucose 155 mg/dL (74-106)
[2025-04-28] MEDS: clonazePAM 0.5 MG Tablet PO (21:09)
[2025-04-28] MEDS: Cholecalciferol (VIT D3) 25 MCG TABLET (1,000 UNITS) 50 MCG PO (21:10)
[2025-04-28] MEDS: Atorvastatin Calcium 40 MG Tablet PO (21:10)
[2025-04-28] MEDS: traZODone 50 MG Tablet 25 MG PO (21:10)
--- NOTE | 2025-04-28 21:47 | NURSING ---
Patient requests assist to toilet, gait belt offered prior to transfer, patients refuseses, states I do not need that. Educated on benefit of gait belt use and risk of fall due to unsteady gait, patient continues to decline use of gait belt
[2025-04-29 05:59] LABS: Absolute Lymphocyte Count 1.45 X10^3/uL (0.83-4.51); Absolute Neutrophil Count 3.3 X10^3/uL (2.0-7.7); Basophil# 0.03 X10^3/uL; Basophil% 0.5 % (0-1); Eosinophil# 0.26 X10^3/uL; Eosinophils% 4.5 % (0-5); Hematocrit 28.7 % (37-47); Hemoglobin 9.5 g/dL (12.0-15.0); Lymphocyte # 1.45 X10^3/ul (0.83-4.51); Lymphocyte % 25.3 % (19-41); Mean Corp Hgb Conc 33.1 g/dL (32-36); Mean Corpuscular Hgb 31.5 pg (27.0-32.0); Mean Platelet Vol. 9.9 fl (6.2-12.0); Monocyte# 0.64 X10^3/uL; Monocyte% 11.2 % (0-10); NRBC Flagged by Analyzer 0 % (0-5); Neutrophil # 3.32 X10^3/uL (2.7-7.7); Neutrophil % 58.2 % (47-70); Platelet Count 193 K/mm3 (150-450); RBC Distribution Width CV 13.5 % (11.6-14.6); RBC Distribution Width SD 46.9 fl (35.1-43.9); Red Blood Count 3.02 M/mm3 (4.2-5.4); White Blood Count 5.7 K/mm3 (4.4-11.0)
[2025-04-29 06:22] LABS: Anion Gap 7 (5-15); BUN 14 mg/dL (4-19); Calcium,Total 8.8 mg/dL (7.6-11.0); Carbon Dioxide 26.7 mmol/L (21.0-32.0); Chloride 108 mmol/L (98-108); Creatinine, Serum 0.94 mg/dL (0.70-1.20); EST Glomerular Filtration Rate 64 (>60); Estimated Creatinine Clearance 52.06 ml/min (50-250); Glucose 138 mg/dL (70-99); Potassium 4.4 mmol/L (3.3-5.1); Sodium Level 142 mmol/L (133-145)
[2025-04-29 06:23] LABS: Bedside Glucose 132 mg/dL (74-106)
[2025-04-29 08:03] VITALS: BP 121/56; PULSE 78; RESP 16; TEMP 36.3; O2SAT 96
[2025-04-29] MEDS: metFORMIN HCl 500 MG Tablet PO ×2 (08:05→17:20)
[2025-04-29] MEDS: lamoTRIgine 100 MG Tablet PO (08:05)
[2025-04-29] MEDS: Escitalopram Oxalate 10 MG Tablet 5 MG PO (08:06)
[2025-04-29] MEDS: Mesalamine 1.2 GM Tablet 2.4 GM PO (08:07)
[2025-04-29 08:08] VITALS: PULSE 78
[2025-04-29] MEDS: Linacolotide 145 MCG CAPSULE PO (08:08)
[2025-04-29] MEDS: Pantoprazole Sodium 40 MG Tablet PO (08:08)
[2025-04-29] MEDS: Metoprolol(XL)Succ 25 MG Tablet PO (08:08)
[2025-04-29] MEDS: Polyethylene Glycol 3350 17 GM PACKET PO (08:08)
[2025-04-29] MEDS: DEUTETRABENAZINE 6 MG PO (08:09)
[2025-04-29] MEDS: Ferrous Sulfate 325 MG Tablet PO (12:08)
[2025-04-29] MEDS: oxyCODONE 5 MG Tablet PO (15:23)
[2025-04-29] MEDS: Ensure Plus High Protein 120 ML LIQUID PO (17:21)
[2025-04-29] MEDS: clonazePAM 0.5 MG Tablet PO (21:36)
[2025-04-29] MEDS: Cholecalciferol (VIT D3) 25 MCG TABLET (1,000 UNITS) 50 MCG PO (21:37)
[2025-04-29] MEDS: traZODone 50 MG Tablet 25 MG PO (21:37)
[2025-04-29] MEDS: Atorvastatin Calcium 40 MG Tablet PO (21:37)
[2025-04-29 21:42] VITALS: PULSE 71; RESP 18; O2SAT 97
[2025-04-30 05:44] LABS: Absolute Lymphocyte Count 1.82 X10^3/uL (0.83-4.51); Absolute Neutrophil Count 3.6 X10^3/uL (2.0-7.7); Basophil# 0.03 X10^3/uL; Basophil% 0.5 % (0-1); Eosinophil# 0.28 X10^3/uL; Eosinophils% 4.4 % (0-5); Hematocrit 29.9 % (37-47); Hemoglobin 9.8 g/dL (12.0-15.0); Lymphocyte # 1.82 X10^3/ul (0.83-4.51); Lymphocyte % 28.3 % (19-41); Mean Corp Hgb Conc 32.8 g/dL (32-36); Mean Corpuscular Volume 94.6 fL (81-99); Mean Platelet Vol. 10.4 fl (6.2-12.0); Monocyte% 10.9 % (0-10); NRBC Flagged by Analyzer 0 % (0-5); Neutrophil # 3.56 X10^3/uL (2.7-7.7); Neutrophil % 55.4 % (47-70); Platelet Count 212 K/mm3 (150-450); RBC Distribution Width CV 13.3 % (11.6-14.6); RBC Distribution Width SD 46.4 fl (35.1-43.9); Red Blood Count 3.16 M/mm3 (4.2-5.4); White Blood Count 6.4 K/mm3 (4.4-11.0)
[2025-04-30 06:47] LABS: Anion Gap 9 (5-15); BUN 16 mg/dL (4-19); BUN/Creat Ratio 16.8 RATIO (10-20); Calcium,Total 8.7 mg/dL (7.6-11.0); Carbon Dioxide 25.1 mmol/L (21.0-32.0); Chloride 105 mmol/L (98-108); Creatinine, Serum 0.94 mg/dL (0.70-1.20); EST Glomerular Filtration Rate 65 (>60); Estimated Creatinine Clearance 52.06 ml/min (50-250); Glucose 142 mg/dL (70-99); Potassium 4.1 mmol/L (3.3-5.1); Sodium Level 139 mmol/L (133-145)
[2025-04-30 08:04] LABS: Bedside Glucose 132 mg/dL (74-106)
[2025-04-30] MEDS: metFORMIN HCl 500 MG Tablet PO ×2 (08:56→18:16)
[2025-04-30] MEDS: DEUTETRABENAZINE 6 MG PO (08:56)
[2025-04-30] MEDS: Aspirin 81 MG TAB.CHEW PO (08:56)
[2025-04-30] MEDS: Ensure Plus High Protein 120 ML LIQUID PO ×3 (08:56→18:16)
[2025-04-30] MEDS: Escitalopram Oxalate 10 MG Tablet 5 MG PO (08:57)
[2025-04-30] MEDS: lamoTRIgine 100 MG Tablet PO (08:57)
[2025-04-30] MEDS: Polyethylene Glycol 3350 17 GM PACKET PO (08:58)
[2025-04-30] MEDS: Clopidogrel Bisulfate 75 MG Tablet PO (08:58)
[2025-04-30] MEDS: Linacolotide 145 MCG CAPSULE PO (08:58)
[2025-04-30] MEDS: Mesalamine 1.2 GM Tablet 2.4 GM PO (08:58)
[2025-04-30] MEDS: Pantoprazole Sodium 40 MG Tablet PO (08:58)
[2025-04-30 08:59] VITALS: PULSE 70
[2025-04-30] MEDS: Metoprolol(XL)Succ 25 MG Tablet PO (08:59)
[2025-04-30 09:05] VITALS: BP 125/55; PULSE 70; RESP 16; TEMP 36.4; O2SAT 95
--- NOTE | 2025-04-30 09:12 | NURSING ---
Nurse Practitioner Physician Assistant Note; MDS for 04/27/2025 Complete
[2025-04-30 10:00] VITALS: PULSE 64; RESP 16; O2SAT 96
--- NOTE | 2025-04-30 10:10 | NURSING ---
Addendum entered by Kaykay Eagle 04/30/25 11:02: Update from that procedure will be 05/02/25 at 1345. Original Note: Left VM with Dr. Garcia's office about cystoscopy, await return call.
--- NOTE | 2025-04-30 11:03 | NURSING ---
Per pt had Bowel movement on 04/29/25 when he helped her to the bathroom.
[2025-04-30] MEDS: Ferrous Sulfate 325 MG Tablet PO (12:02)
[2025-04-30] MEDS: oxyCODONE 5 MG Tablet PO (13:04)
--- NOTE | 2025-04-30 15:16 | CASEMGMT ---
Social Work Insurance issued LCD 05/02, DC 05/03 SW spoke with pt at bedside to notify of DC. SW provided [employer] to pt and educated to appeal rights. Pt verbalized understanding and denied appeal. Pt is agreeable to DC. Pt agreed for SW to phoned to notify and finalize DC plans. - SW phoned to update on DC date, explained appeal rights and inquired about ability to care for pt at home. prefers pt continues with therapy and remains active, but acknowledges pt wants to be home. denied appealing but prefers outpatient therapy vs HHC. SW provided choices of OP centers. prefers [facility]. SW to coordinate PT. will transport at DC. - SW faxed referral to [facility] for PT. Plan: DC home with 05/03, [facility] PT Ute Gutierrez MSW GRINDER
[2025-04-30 17:05] LABS: Bedside Glucose 188 mg/dL (74-106)
--- NOTE | 2025-04-30 19:01 | PCM.DC.SUM ---
Providers Date of Admission: 04/20/25 Primary Care Physician: Dr. Marci Nuñez DO Reason For Visit: GENERALIZED WEAKNESS Diagnosis Discharge Diagnosis (1) Debility: Status: Acute Code(s): R53.81 - Other malaise (2) CVA (cerebral vascular accident): Status: Acute Code(s): I63.9 - Cerebral infarction, unspecified (3) HLD (hyperlipidemia): Status: Chronic Code(s): E78.5 - Hyperlipidemia, unspecified (4) Muscle spasm: Status: Acute Code(s): M62.838 - Other muscle spasm (5) Ischemic colitis: Status: Acute Code(s): K55.9 - Vascular disorder of intestine, unspecified (6) Calcium deficiency: Status: Acute Code(s): E58 - Dietary calcium deficiency (7) Vitamin D deficiency: Status: Acute Code(s): E55.9 - Vitamin D deficiency, unspecified (8) Insomnia: Status: Acute Code(s): G47.00 - Insomnia, unspecified (9) Chronic systolic heart failure: Status: Chronic Code(s): I50.22 - Chronic systolic (congestive) heart failure (10) Irritable bowel syndrome: Status: Acute Code(s): K58.9 - Irritable bowel syndrome, unspecified (11) Depression: Status: Acute Code(s): F32.A - Depression, unspecified (12) Diabetes mellitus: Status: Acute Code(s): E11.9 - Type 2 diabetes mellitus without complications (13) GERD (gastroesophageal reflux disease): Status: Acute Code(s): K21.9 - Gastro-esophageal reflux disease without esophagitis (14) Overactive bladder: Status: Acute Code(s): N32.81 - Overactive bladder Plan 70 year old female with below past medical history hospitalized for weakness, no reversible cause of weakness found, admitted to TCU with debility, here for rehabilitation, strengthening, prior ot discharge home with . Debility - PT/OT. Pain - Tylenol 1000mg q6 prn pain (1-10). Bowel - Miralax 17gm daily, Linzess 145mcg daily. Adult immunization - Administer pneumonia vaccine, covid vaccine, flu vaccine as appropriate. DVT prophylaxis - Hold, on dual antiplatelet therapy. Chronic HFrEF - Metoprolol succinate 25mg daily, Furosemide 20mg daily prn 2lb weight gain. GERD - Pantoprazole 40mg daily, Levsin 0.125mg tid prn. Diabetes Mellitus II - Metformin 500mg daily. Dry Eyes - Artificial tears 1 gtt ou q1 prn. Anxiety - Lamictal 100mg daily. Iron deficiency anemia - Ferrous sulfate 325mg daily, Dr. Lockett planning EGD/colonoscopy 04/25/2025. Vitamin D deficiency - D3 25mcg daily. Stroke - Aspirin 81mg daily, Plavix 75mg daily. Hyperlipidemia - Rosuvastatin 20mg qhs. Muscle spasm - Baclofen 5mg daily. Shortness of breath - Albuterol mdi prn. Tardive dyskinesia - Austedo XR 6mg daily. Dysuria - Pyridium 100mg tid prn, Dr. Garcia planning office cystoscopy. The following psychotropic medication was present on admission: Escitalopram 5mg daily. Psychotropic medication therapy is indicated for a diagnosis of: Major Depression. Based on my clinical evaluation, continuation of the medication is necessary at this time. Gradual dose reduction plan (select one): ____ GDR will be attempted. Will monitor patient symptoms and behaviors in response to GDR. ___x_ GRD contraindicated. 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 The following psychotropic medication was present on admission: Trazodone 50mg qhs. Psychotropic medication therapy is indicated for a diagnosis of: Insomnia. Based on my clinical evaluation, continuation of the medication is necessary at this time. Gradual dose reduction plan (select one): ____ GDR will be attempted. Will monitor patient symptoms and behaviors in response to GDR. __x__ GRD contraindicated. Reason contraindicated: stable chronic retirement use. The following psychotropic medication was present on admission: Clonazepam 1mg qhs. Psychotropic medication therapy is indicated for a diagnosis of: Anxiety/insomnia. Based on my clinical evaluation, continuation of the medication is necessary at this time. Gradual dose reduction plan (select one): ____ GDR will be attempted. Will monitor patient symptoms and behaviors in response to GDR. __x__ GRD contraindicated. Reason contraindicated: stable chronic retirement use. Medications at Discharge Home Medications clonazepam 1 mg tablet 1 mg PO QHS anxiety 11/18/14 trazodone 50 mg tablet 50 mg PO DAILY Anxiety 11/18/14 cholecalciferol (vitamin D3) 25 mcg (1,000 unit) tablet 50 mcg (2 x 25 mcg (1,000 unit)) PO QHS supplement #0 tabs 09/30/23 aspirin 81 mg tablet,delayed release 81 mg PO .COMPLEX heart 10/01/23 rosuvastatin 20 mg tablet 20 mg PO QHS cholesterol 02/21/24 furosemide 20 mg tablet 20 mg PO QDAY PRN for 2lb weight gain 06/13/24 escitalopram oxalate 5 mg tablet 5 mg PO QDAY Mood 11/28/24 polyethylene glycol 3350 17 gram/dose oral powder (Miralax) 17 g PO DAILY Constipation 11/28/24 metformin 500 mg tablet 500 mg PO QDAY Diabetes 01/18/25 metoprolol succinate 25 mg tablet,extended release 24 hr (Toprol XL) 25 mg PO QDAY BP 01/18/25 lamotrigine 100 mg tablet 100 mg PO QDAY Anxiety 01/23/25 polyethylene glycol 400 0.25 % eye gel drops (Blink Gel Tears) 1 drp ophthalmic (eye) .q1hr PRN Dry eyes 01/23/25 ferrous sulfate 325 mg (65 mg iron) tablet (Feosol) 325 mg PO QDAY Supplement 02/13/25 linaclotide 145 mcg capsule (Linzess) 145 mcg PO QAM Constipation #60 caps 02/14/25 hyoscyamine sulfate 0.125 mg tablet 0.125 mg PO TID PRN dyspepsia #90 tabs 03/05/25 clopidogrel 75 mg tablet 75 mg PO .COMPLEX Antiplatelet 04/19/25 deutetrabenazine 6 mg tablet,extended release 24 hr (Austedo XR) 6 mg PO DAILY involuntary Movements 04/19/25 phenazopyridine 100 mg tablet 100 mg PO TID PRN PRN bladder pain 04/19/25 mesalamine 1.2 gram tablet,delayed release 2.4 g (2 x 1.2 gram) PO DAILY 30 days #60 tabs 04/30/25 oxycodone 5 mg tablet 5 mg PO Q6H PRN PRN Pain Score 6-10 7 days #28 tabs 04/30/25 pantoprazole 40 mg tablet,delayed release 40 mg PO DAILY 30 days #30 tabs 04/30/25 Hospital Course Operations None Procedures Colonoscopy and EGD Summary of Care Provided Minutes Spent on Discharge: 35 Hospital Course: 70 year old female with below past medical history hospitalized for weakness, no reversible cause of weakness found, admitted to TCU with debility, here for rehabilitation, strengthening, prior ot discharge home with . 04/25/2025 Dr. Lockett EGD: Impressions : - Normal esophagus. - No gross lesions in the entire stomach. - Acquired duodenal stenosis. Biopsied. 04/25/2025: Dr. Lockett colonoscopy: Impressions : - Localized moderate inflammation was found in the rectum secondary to colitis. Biopsied. 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 Biopsied. - Diverticulosis in the recto-sigmoid colon, in the sigmoid colon, in the transverse colon and in the ascending colon. - The examined portion of the ileum was normal. Discharge home with 05/03/2025, [facility]. Physical Exam Const alert General Appearance: cooperative HEENT normocephalic Eyes PERRL and EOMs intact bilaterally Neck supple, no JVD and no carotid bruits Resp normal respiratory effort, normal air movement and clear to auscultation bilaterally Cardio regular rate and regular rhythm GI normal to inspection, nondistended, normoactive bowel sounds, non-tender and non-distended Extremity normal capillary refill General Extremity: Negative for edema Skin no rashes or lesions noted General Skin Exam: no breakdown Psych affect normal Appearance: appropriate Weight / BMI Weight Weight: 60.963 kg Body Mass Index (BMI) 20.4 ABG / Lab / Microbiology Data 04/30/25 05:07 04/30/25 05:07 Laboratory: Laboratory Results - last 24 hr 04/30/25 05:07: WBC 6.4, RBC 3.16 L, Hgb 9.8 L, Hct 29.9 L, MCV 94.6, MCH 31.0, MCHC 32.8, RDW Std Deviation 46.4 H, RDW Coeff of Edita 13.3, Plt Count 212, MPV 10.4, Immature Gran % (Auto) 0.500, Neut % (Auto) 55.4, Lymph % (Auto) 28.3, [place] % (Auto) 10.9 H, Eos % (Auto) 4.4, Baso % (Auto) 0.5, Absolute Neuts (auto) 3.6, Absolute Lymphs (auto) 1.82, Nucleated RBC % 0, Sodium 139, Potassium 4.1, Chloride 105, Carbon Dioxide 25.1, Anion Gap 9, BUN 16, Creatinine 0.94, Estim Creat Clear Calc 52.06, Est GFR (MDRD) Non-Af 65, BUN/Creatinine Ratio 16.8, Glucose 142 H, Calcium 8.7 04/30/25 05:54: POC Glucose 132 H 04/30/25 16:28: POC Glucose 188 H D/C Instructions Discharge Diet: No restrictions Discharge Activity: Return to Normal Activity, May Shower and Use Walker Weight Bearing Status: Weight bearing as tolerated Call your doctor if you observe: Fever of 101 or Higher, Inability to urinate, Inability to have a bowel movement, Shortness of breath, Dizziness, Fainting spells, Swelling in the ankles, Chest pain and Uncontrolled pain DC O2, CPAP, BIPAP Needs Home O2 Discharge instructions: No Additional Instructions: Discharge home with 05/03/2025, [facility]. Please Follow Up With: ANNE When: As scheduled. Meaningful Use Info Meaningful Use Meaningful Use Diagnoses (Choose all that apply): None applicable Ischemic Stroke Statin Dosing Therapy Reference: STATIN DOSE THERAPY REFERENCE: * Patients > 75 years receive moderate or high dose statin therapy. * Patients 75 years or YOUNGER should receive HIGH intensity statin dose unless contraindicated. You will be required to document reason for non-treatment if statin daily dose does not meet guidelines. HIGH DOSE STATIN THERAPY DAILY Atorvastatin > than or = to 40 mg Rosuvastatin > than or = to 20 mg Amlodipine + Atorvastatin > than or = to 2.5/40 mg Ezetimibe + Simvastatin 10/80 mg Simvastatin 80mg Discharge Plan Admission Admit Date/Time: 04/20/25 16:10 Primary Reason for Your Visit: Debility. Attending Provider: Alonso Marte Chi Primary Care Provider: Marci Nuñez Instructions Additional Instructions / Restrictions: Discharge home with 05/03/2025, [facility]. Discharge Orders/Prescriptions Prescriptions: New pantoprazole 40 mg Tablet,Delayed Release (Dr/Ec) 40 mg PO DAILY 30 Days Qty: 30 0RF oxycodone 5 mg Tablet 5 mg PO Q6H PRN PRN (Reason: Pain Score 6-10) 7 Days Qty: 28 0RF mesalamine 1.2 gram Tablet,Delayed Release (Dr/Ec) 2.4 g PO DAILY 30 Days Qty: 60 0RF Continued furosemide 20 mg tablet 20 mg PO QDAY PRN (Reason: for 2lb weight gain) metformin 500 mg tablet 500 mg PO QDAY metoprolol succinate [Toprol XL] 25 mg tablet extended release 24 hr 25 mg PO QDAY Blink Gel Tears 0.25 % drops,gel 1 drp ophthalmic (eye) .q1hr PRN (Reason: Dry eyes) lamotrigine 100 mg tablet 100 mg PO QDAY escitalopram oxalate 5 mg tablet 5 mg PO QDAY polyethylene glycol 3350 [Miralax] 17 gram/dose powder 17 g PO DAILY ferrous sulfate [Feosol] 325 mg (65 mg iron) tablet 325 mg PO QDAY Linzess 145 mcg capsule 145 mcg PO QAM Qty: 60 2RF trazodone 50 MG tablet 50 mg PO DAILY clonazepam 1 MG tablet 1 mg PO QHS cholecalciferol (vitamin D3) 25 mcg (1,000 unit) Tablet 50 mcg PO QHS Qty: 0 0RF aspirin 81 mg tablet,delayed release (DR/EC) 81 mg PO .COMPLEX Rx Instructions: 81 mg orally EVERY OTHER DAY; rosuvastatin 20 mg tablet 20 mg PO QHS Austedo XR 6 mg tablet extended release 24 hr 6 mg PO DAILY phenazopyridine 100 mg tablet 100 mg PO TID PRN PRN (Reason: bladder pain) clopidogrel 75 mg Tablet 75 mg PO .COMPLEX Rx Instructions: 75 mg orally Wednesday, Wednesday, Wednesday; hyoscyamine sulfate 0.125 mg tablet 0.125 mg PO TID PRN (Reason: dyspepsia) Qty: 90 2RF Discontinued acetaminophen 500 mg tablet 500 mg PO Q6H PRN PRN (Reason: Pain Score 1-10) docusate sodium 100 mg capsule 100 mg PO DAILY PRN (Reason: constipation) pantoprazole 40 mg tablet,delayed release (DR/EC) 40 mg PO DAILY baclofen 5 mg tablet 5 mg PO QDAY Patient Comments: PLEASE SEE ATTACHED FOR DETAILED DIRECTIONS albuterol sulfate 90 mcg/actuation HFA aerosol inhaler 1 puff inhalation Q6H PRN (Reason: shortness of breath or wheezing) Qty: 8.5 0RF oxycodone-acetaminophen 5-325 mg tablet 1 tab PO Q6H PRN PRN (Reason: severe pain) Referrals / Follow Up: Marci Nuñez DO [Primary Care Provider] - Friend,DO Shan [Med Staff - Active Staff] - Within 1 Month (Colitis.) Disposition Disposition (needs filled in before D/C Order can be placed): Home, Self Care
[2025-04-30] MEDS: clonazePAM 0.5 MG Tablet PO (21:31)
[2025-04-30] MEDS: traZODone 50 MG Tablet 25 MG PO (21:31)
[2025-04-30] MEDS: Cholecalciferol (VIT D3) 25 MCG TABLET (1,000 UNITS) 50 MCG PO (21:32)
[2025-04-30] MEDS: Atorvastatin Calcium 40 MG Tablet PO (21:32)
[2025-05-01 06:11] LABS: Absolute Lymphocyte Count 1.34 X10^3/uL (0.83-4.51); Basophil# 0.03 X10^3/uL; Basophil% 0.6 % (0-1); Eosinophil# 0.21 X10^3/uL; Hematocrit 28.6 % (37-47); Hemoglobin 9.5 g/dL (12.0-15.0); Lymphocyte # 1.34 X10^3/ul (0.83-4.51); Lymphocyte % 25.5 % (19-41); Mean Corp Hgb Conc 33.2 g/dL (32-36); Mean Corpuscular Hgb 31.1 pg (27.0-32.0); Mean Corpuscular Volume 93.8 fL (81-99); Mean Platelet Vol. 10.2 fl (6.2-12.0); Monocyte# 0.63 X10^3/uL; NRBC Flagged by Analyzer 0 % (0-5); Neutrophil # 3.02 X10^3/uL (2.7-7.7); Neutrophil % 57.5 % (47-70); Platelet Count 207 K/mm3 (150-450); RBC Distribution Width CV 13.4 % (11.6-14.6); RBC Distribution Width SD 45.9 fl (35.1-43.9); Red Blood Count 3.05 M/mm3 (4.2-5.4); White Blood Count 5.3 K/mm3 (4.4-11.0)
[2025-05-01 06:33] LABS: Bedside Glucose 136 mg/dL (74-106)
[2025-05-01 06:45] LABS: Anion Gap 9 (5-15); BUN 16 mg/dL (4-19); BUN/Creat Ratio 18.3 RATIO (10-20); Calcium,Total 8.7 mg/dL (7.6-11.0); Carbon Dioxide 24.5 mmol/L (21.0-32.0); Chloride 104 mmol/L (98-108); Creatinine, Serum 0.88 mg/dL (0.70-1.20); EST Glomerular Filtration Rate 70 (>60); Estimated Creatinine Clearance 55.61 ml/min (50-250); Glucose 148 mg/dL (70-99); Potassium 4.1 mmol/L (3.3-5.1); Sodium Level 138 mmol/L (133-145)
[2025-05-01 09:24] VITALS: BP 109/49; PULSE 65; RESP 16; TEMP 36.2; O2SAT 97
[2025-05-01] MEDS: metFORMIN HCl 500 MG Tablet PO ×2 (09:26→18:04)
[2025-05-01] MEDS: Linacolotide 145 MCG CAPSULE PO (09:26)
[2025-05-01] MEDS: Ensure Plus High Protein 120 ML LIQUID PO ×3 (09:26→18:02)
[2025-05-01] MEDS: DEUTETRABENAZINE 6 MG PO (09:27)
[2025-05-01] MEDS: lamoTRIgine 100 MG Tablet PO (09:27)
[2025-05-01] MEDS: Escitalopram Oxalate 10 MG Tablet 5 MG PO (09:27)
[2025-05-01 09:28] VITALS: PULSE 65
[2025-05-01] MEDS: Mesalamine 1.2 GM Tablet 2.4 GM PO (09:28)
[2025-05-01] MEDS: Metoprolol(XL)Succ 25 MG Tablet PO (09:28)
[2025-05-01] MEDS: Pantoprazole Sodium 40 MG Tablet PO (09:28)
[2025-05-01] MEDS: Polyethylene Glycol 3350 17 GM PACKET PO (09:28)
--- NOTE | 2025-05-01 10:41 | MDS.RN ---
Information for the MDS was obtained from review of the clinical record, interview of resident, staff, and direct observation of resident?s care.
[2025-05-01] MEDS: Ferrous Sulfate 325 MG Tablet PO (12:22)
[2025-05-01 14:36] VITALS: BMI 20.6
[2025-05-01 18:03] LABS: Bedside Glucose 213 mg/dL (74-106)
[2025-05-01] MEDS: clonazePAM 0.5 MG Tablet PO (21:13)
[2025-05-01] MEDS: Atorvastatin Calcium 40 MG Tablet PO (21:14)
[2025-05-01] MEDS: traZODone 50 MG Tablet 25 MG PO (21:14)
[2025-05-01] MEDS: Cholecalciferol (VIT D3) 25 MCG TABLET (1,000 UNITS) 50 MCG PO (21:15)
[2025-05-01 21:19] VITALS: PULSE 71; RESP 17
[2025-05-01 21:28] LABS: Bedside Glucose 231 mg/dL (74-106)
[2025-05-02 06:27] LABS: Bedside Glucose 136 mg/dL (74-106)
[2025-05-02 09:25] VITALS: BP 112/43; PULSE 69; RESP 18; TEMP 36.1; O2SAT 96
[2025-05-02] MEDS: Ensure Plus High Protein 120 ML LIQUID PO ×3 (09:29→18:01)
[2025-05-02] MEDS: Aspirin 81 MG TAB.CHEW PO (09:30)
[2025-05-02] MEDS: metFORMIN HCl 500 MG Tablet PO ×2 (09:30→18:02)
[2025-05-02] MEDS: DEUTETRABENAZINE 6 MG PO (09:30)
[2025-05-02] MEDS: lamoTRIgine 100 MG Tablet PO (09:30)
[2025-05-02] MEDS: Escitalopram Oxalate 10 MG Tablet 5 MG PO (09:31)
[2025-05-02] MEDS: Mesalamine 1.2 GM Tablet 2.4 GM PO (09:31)
[2025-05-02] MEDS: Linacolotide 145 MCG CAPSULE PO (09:31)
[2025-05-02 09:32] VITALS: BP 112/43; PULSE 69
[2025-05-02] MEDS: Metoprolol(XL)Succ 25 MG Tablet PO (09:32)
[2025-05-02] MEDS: Pantoprazole Sodium 40 MG Tablet PO (09:32)
[2025-05-02] MEDS: Clopidogrel Bisulfate 75 MG Tablet PO (09:32)
[2025-05-02] MEDS: Polyethylene Glycol 3350 17 GM PACKET PO (09:32)
--- NOTE | 2025-05-02 11:13 | CASEMGMT ---
Social Work SW completed BIMS () and PHQ-9 (08/18) for MDS assessment. Ute Gutierrez INCUBATOR MACHINE OPERATOR TOWER LOADER OPERATOR
[2025-05-02] MEDS: Ferrous Sulfate 325 MG Tablet PO (12:20)
[2025-05-02] MEDS: oxyCODONE 5 MG Tablet PO (12:20)
--- NOTE | 2025-05-02 14:02 | NURSING ---
Addendum entered by Kaykay Eagle 05/02/25 14:56: Call back from Berenice at Dr. Lockett's office. She said Dr. Lockett does not think med should be causing abdominal pain but to go ahead and hold x2 weeks to see if pain improved. Med placed on hold. Original Note: Contacted Dr Hannon office d/t pt feels the Mesalamine is causing increased stomach pain. LVM with nurse waiting for call back.
[2025-05-02 16:40] LABS: Bedside Glucose 149 mg/dL (74-106)
[2025-05-02] MEDS: Atorvastatin Calcium 40 MG Tablet PO (21:07)
[2025-05-02] MEDS: clonazePAM 0.5 MG Tablet PO (21:07)
[2025-05-02] MEDS: traZODone 50 MG Tablet 25 MG PO (21:07)
[2025-05-02] MEDS: Cholecalciferol (VIT D3) 25 MCG TABLET (1,000 UNITS) 50 MCG PO (21:08)
[2025-05-03 06:08] VITALS: PULSE 62; RESP 18; O2SAT 98
[2025-05-03 06:28] LABS: Bedside Glucose 136 mg/dL (74-106)
[2025-05-03 08:22] VITALS: BP 97/54; PULSE 84; RESP 16; TEMP 36.9; O2SAT 94
[2025-05-03] MEDS: metFORMIN HCl 500 MG Tablet PO (08:28)
[2025-05-03] MEDS: DEUTETRABENAZINE 6 MG PO (08:28)
[2025-05-03] MEDS: lamoTRIgine 100 MG Tablet PO (08:29)
[2025-05-03] MEDS: Escitalopram Oxalate 10 MG Tablet 5 MG PO (08:29)
[2025-05-03] MEDS: Pantoprazole Sodium 40 MG Tablet PO (08:30)
[2025-05-03] MEDS: Linacolotide 145 MCG CAPSULE PO (08:30)
[2025-05-03] MEDS: Ensure Plus High Protein 120 ML LIQUID PO (08:32)
[2025-05-03 10:07] VITALS: BP 112/59; PULSE 66
[2025-05-03 10:08] VITALS: PULSE 66
[2025-05-03] MEDS: Metoprolol(XL)Succ 25 MG Tablet PO (10:08)
== END 2025-05-03 10:30 | disposition home or self-care (01) | DRG 812 ==
PROVIDERS: Admitting Provider Family Medicine Geriatric Medicine; PCP Family Medicine; Referring Provider Family Medicine Geriatric Medicine; Visit Provider Family Medicine Geriatric Medicine
DX: D50.9 Iron deficiency anemia, unspecified (principal); K55.9 Vascular disorder of intestine, unspecified; K31.5 Obstruction of duodenum; I13.0 Hypertensive heart and chronic kidney disease with heart failure and stage 1 through stage 4 chronic kidney disease, or unspecified chronic kidney disease; I50.22 Chronic systolic (congestive) heart failure; Q21.12 Patent foramen ovale; E11.51 Type 2 diabetes mellitus with diabetic peripheral angiopathy without gangrene; N18.9 Chronic kidney disease, unspecified; F32.9 Major depressive disorder, single episode, unspecified; E11.22 Type 2 diabetes mellitus with diabetic chronic kidney disease; E11.40 Type 2 diabetes mellitus with diabetic neuropathy, unspecified; E55.9 Vitamin D deficiency, unspecified; K21.9 Gastro-esophageal reflux disease without esophagitis; I25.10 Atherosclerotic heart disease of native coronary artery without angina pectoris; K58.9 Irritable bowel syndrome, unspecified; E78.00 Pure hypercholesterolemia, unspecified; M62.838 Other muscle spasm; G24.01 Drug induced subacute dyskinesia; I25.5 Ischemic cardiomyopathy; F41.9 Anxiety disorder, unspecified; K57.30 Diverticulosis of large intestine without perforation or abscess without bleeding; Z79.84 Long term (current) use of oral 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 drugs; G47.00 Insomnia, unspecified; Z87.891 Personal history of nicotine dependence; N32.81 Overactive bladder; Z95.5 Presence of coronary angioplasty implant and graft; T50.905D Adverse effect of unspecified drugs, medicaments and biological substances, subsequent encounter; Z79.899 Other long term (current) drug therapy; Z79.82 Long term (current) use of aspirin; R30.0 Dysuria; R91.8 Other nonspecific abnormal finding of lung field; Z95.810 Presence of automatic (implantable) cardiac defibrillator
CPT/HCPCS: 36415; 80048; 80061; 82962; 83036; 85025; 92507; 92523; 97110; 97116; 97162; 97166; 97530; 97535; A4216

== ENCOUNTER 2025-04-25 06:41 | Day surgery (SDC) | payer MEDICARE, SELFPAY ==
--- NOTE | 2025-04-23 16:34 | PAT.ANE_ITS ---
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 When Was Last Pacemaker Check 202211/13/24 13:46 QUESTION #4 FULL TEXT: You/Your Family Experience fever (hyperthermia) with Anesthesia Last Oral Intake Last Oral intake: Last Oral Intake NPO since Meds taken in AM with sips of water? 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 Has anyone observed you stop No 04/23/25 16:09 breathing during sleep? STOP Results Negative 04/23/25 16:09 QUESTION #5 FULL TEXT : Do you snore loudly (louder than talking or can be heard through closed doors)? 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 Specify any problems Hx of Preganancy in last 3 No 04/23/25 16:09 Months Nurse Filling Out Transfusion VCHRISTIN 04/23/25 16:09 & Questions: Date: 04/23/25 04/23/25 16:09 Time: 16:10 04/23/25 16:09 Patient unable to answer at this time (ie. 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: /Reproductive Hx- motor vehicle operator road supervisor Hx Now No 04/23/25 16:09 Gestational Age (in weeks): EDC: Hx Hx Para Hx Section SAB No 04/23/25 16:09 [facility] Medical History (Updated 04/23/25 @ 16:09 by Viviane Villalta) Back pain History of Holter monitoring History of stress test History of echocardiogram Cardiology follow-up encounter Ischemic colitis History of left heart catheterization History of mechanical ventilation Cardiogenic pulmonary edema Acute hypoxic respiratory failure Multiple lung nodules Major depressive disorder Left bundle branch block NSTEMI (non-ST elevated myocardial infarction) Diabetic peripheral vascular disease Diabetic nephropathy Chronic kidney disease (CKD) Bleeding ulcer Dyslipidemia Chronic systolic heart failure Pacemaker Congestive heart failure (CHF) Cerebral palsy Anxiety and depression Heart failure with reduced ejection fraction GERD (gastroesophageal reflux disease) Insomnia Transient ischemic attack AV node dysfunction Ischemic cardiomyopathy Presence of biventricular implantable cardioverter-defibrillator Ulcer Restless legs High cholesterol Anxiety Former smoker ICD (implantable cardioverter-defibrillator) in place Coronary artery disease CVA (cerebral vascular accident) PFO (patent foramen ovale) Cardiac resynchronization therapy defibrillator (ROCK DUSTER-D) in place Myocarditis Hyperlipidemia Hypertension Home Medications ?Medication ?Instructions ?Recorded ?Last Taken ?Type clonazepam 1 mg tablet 1 mg PO QHS anxiety 11/18/14 07/02/24 History trazodone 50 mg tablet 50 mg PO DAILY Anxiety 11/1804/19/25 20:30 History cholecalciferol (vitamin D3) 25 50 mcg (2 x 25 mcg (1, 000 unit)) 09/30/23 04/19/25 20:30 Rx mcg (1,000 unit) tablet PO QHS supplement #0 tabs aspirin 81 mg tablet,delayed 81 mg PO .COMPLEX heart 1 12/01/22 04/20/25 08:50 History release rosuvastatin 20 mg tablet 20 mg PO QHS cholesterol 12/1504/19/25 20:30 History acetaminophen 500 mg tablet 500 mg PO Q6H PRN PRN Pain Score 06/13/24 07/01/24 History 1-10 docusate sodium 100 mg capsule 100 mg PO DAILY PRN con stipation 06/13/24 07/02/24 History furosemide 20 mg tablet 20 mg PO QDAY PRN for 2lb we ight 06/13/24 06/19/24 History gain pantoprazole 40 mg tablet,delayed 40 mg PO DAILY GERD 07/17/24 04/20/25 08:50 History release baclofen 5 mg tablet 5 mg PO QDAY muscle spasms 0 08/03/24 Unknown History albuterol sulfate 90 mcg/actuation 1 puff inhalation Q 6H PRN 09/09/24 Unknown Rx aerosol inhaler shortness of breath or wheez ing #8.5 grams escitalopram oxalate 5 mg tablet 5 mg PO QDAY Mood 06/1504/20/25 08:50 History polyethylene glycol 3350 17 17 g PO DAILY Constipation 11/28/24 Unknown History gram/dose oral powder (Miralax) metformin 500 mg tablet 500 mg PO QDAY Diabetes 12/24 06/15 Unknown History metoprolol succinate 25 mg 25 mg PO QDAY BP 01/18/25 0 04/20/25 10:35 History tablet,extended release 24 hr (Toprol XL) lamotrigine 100 mg tablet 100 mg PO QDAY Anxiety 01/2304/20/25 08:50 History polyethylene glycol 400 0.25 % eye 1 drp ophthalmic (e ye) .q1hr PRN 01/23/25 Unknown History gel drops (Blink Gel Tears) Dry eyes ferrous sulfate 325 mg (65 mg 325 mg PO QDAY Supplemen t 02/13/25 04/20/25 08:30 History iron) tablet (Feosol) linaclotide 145 mcg capsule 145 mcg PO QAM Constipatio n #60 02/14/25 Unknown Rx (Linzess) caps hyoscyamine sulfate 0.125 mg tablet 0.125 mg PO TID AR N dyspepsia #90 03/05/25 Unknown Rx tabs clopidogrel 75 mg tablet 75 mg PO .COMPLEX Antiplatel et 04/19/25 04/20/25 13:05 History deutetrabenazine 6 mg 6 mg PO DAILY involuntary Mo vements 04/19/25 04/20/25 08:50 History tablet,extended release 24 hr (Austedo XR) oxycodone-acetaminophen 5 mg-325 1 tab PO Q6H PRN PRN severe pain 04/19/25 Unknown History mg tablet phenazopyridine 100 mg tablet 100 mg PO TID PRN PRN bl adder pain 04/19/25 Unknown History Allergy/AdvReac Type Severity Reaction Status Date / Time No Known Allergies Allergy Verified 04/19/25 03:35 Family History Father Heart disease Myocardial infarction Mother Anxiety and depression Suicide and self-inflicted injury from suicide age 52. Surgical History (Updated 04/23/25 @ 16:09 by Viviane Villalta) History of cardiac catheterization Presence of stent in coronary artery History of bilateral cataract extraction History of skin surgery S/P colon polypectomy History of cardiac defibrillator placement History of cholecystectomy History of coronary artery stent placement Social History household members: spouse Smoking Status: Former smoker how long ago did patient quit smokin-1.5 ppd from teen until quit in 2008. alcohol intake: never substance use type: does not use caffeine: Yes seatbelt use: always do you feel safe at home: Yes additional social history: - Cuate Audit: Pertinent Findings HISTORY of Pertinent Findings History of Pertinent Findings: Mansi Espino is a 69 year old female with a history of coronary disease status post stenting in November 2019 to the mid circumflex she had multiple lesions and multiple interventions were performed during that setting. This was done at [facility]. She was diagnosed with a long nonischemic dilated cardiomyopathy despite her coronary disease as her cardiomyopathy appear to be out of proportion of her coronary disease. Her EF was 30% in March 2022. She was treated with guideline directed medical therapy and received ROCK DUSTER?D implant. Repeat evaluation by echocardiography in September 2023 showed an EF improved to 55%. The patient has a history of PFO and actually had been told that that was the etiology of her cerebral palsy at . She had a CVA at some point in time in the remote past but has not been felt to be a candidate for closure device. She also has a history of hyperlipidemia chronic left bundle branch block and has not ROCK DUSTER-D implant. She carries a history of moderate mitral regurgitation. She also has a history of anemia and an ill-defined clotting disorder for which she sees hematology here at [facility]. She also sees Dr. Turk and Dr. Lockett. Patient's last evaluation of LV function was August 25, 2024 and her EF was 55% at that point in time. Initially her EF had been in the 15 to 20% range when she was originally diagnosed at her heart catheterization November 26, 2021. She underwent extensive stenting of the ramus intermedius and left circumflex and obtuse marginal branch of the circumflex. She had residual distal disease in the right coronary artery and an 80% mid LAD lesion that taper down significant ly after the stenosis. The patient's LV function appeared to be reduced out of proportion of her coronary artery disease findings suggested this may be a combination of ischemic and nonischemic cardiomyopathy. Patient has a ROCK DUSTER-D implant. She is 98% BiV paced. She has not had any symptoms of congestive heart failure. Will continue to monitor. Pertinent Findings EKG Perinent findings: 02/2025: Atrial-sensed ventricular-paced rhythm (Biventricular pacemaker) Echo (EF%) pertinent findings: Echocardiogram 08/25/2024 Interpretation Summary The estimated ejection fraction is 55 %. No evidence for diastolic dysfunction. Trivial mitral valve insufficiency. Heart catheterization pertinent findings: Cardiac Catheterization 11/26/2021 Summary 1. Mitral valve: There is moderate regurgitation 2. Left ventricle: Systolic function is markedly reduced. The estimated ejection fraction is 15-20%. Dilated LV. 3. LAD: Mid-vessel lesion: There is an 80% stenosis. Tubular. Tapers down after stenosis. 4. 1st diagonal: The vessel is large. Runs almost to apex Proximal vessel lesion: There is a 70% stenosis. 5. Ramus intermedius: The vessel is medium-sized. Ostial lesion: There is a 95% stenosis. 6. Left circumflex: The vessel is large. Proximal vessel lesion: There is a 99% stenosis. 7. 1st obtuse marginal: Ostial lesion: There is a 99% stenosis. 8. Right coronary: Distal vessel lesion: There is a 99% stenosis. 9. LVEF function diffusely reduced and is out of proportion of CAD findings. Additional pertinent findings: Carotid Duplex Ultrasound 09/28/2023 Interpretation Summary Mild (<50%) stenosis right extracranial internal carotid. Mild (<50%) stenosis left extracranial internal carotid. Patent and antegrade vertebrals bilaterally. Recommendation Anesthesia Recommendation Anesthesia recommendation: OPTIMIZED for anesthesia
[2025-04-25] VITALS (8 sets, daily range): BP systolic 87–134; BP diastolic 41–57; PULSE 60–73; RESP 14–16; TEMP 36.1–36.7; O2SAT 94–97; BMI 45.0
--- NOTE | 2025-04-25 06:45 | HP.PCM_ITS ---
HPI - General General Date of Admission: 04/25/25 Date of Service: 04/25/25 Chief Complaint: Anemia and abdominal pain HPI Narrative BETTY CARO, is a 70 F who presents for endoscopic evaluation [facility] established 07.21.34 after hospitalization for bloody diarrhea revealing ischemic colitis. Colonoscopy 07.05.24; - Preparation of the colon was fair. - Diverticulosis in the recto-sigmoid colon, in the sigmoid colon and in the descending colon. - No specimens collected. Biochemical work up 07.17.24; hgb 10.2 L, APTT 23.6, Iron 40 L , TIBC 239 Last OV 12.12.24 Pt with continues abd pain and constipation. Taking miralax daily. Pt referred to pain management and women's care. Start Linzess 72 mcg daily. OV 02.14.25; Pt recommended to f/u with GI for FOBT+. 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 She endorses some lower abd pain today. SHe is having a bm every two days while on Linzess 72 mcg and miralax. [facility] Medical History Back pain History of Holter monitoring History of stress test History of echocardiogram Cardiology follow-up encounter Ischemic colitis History of left heart catheterization History of mechanical ventilation Cardiogenic pulmonary edema Acute hypoxic respiratory failure Multiple lung nodules Major depressive disorder Left bundle branch block NSTEMI (non-ST elevated myocardial infarction) Diabetic peripheral vascular disease Diabetic nephropathy Chronic kidney disease (CKD) Bleeding ulcer Dyslipidemia Chronic systolic heart failure Pacemaker Congestive heart failure (CHF) Cerebral palsy Anxiety and depression Heart failure with reduced ejection fraction GERD (gastroesophageal reflux disease) Insomnia Transient ischemic attack AV node dysfunction Ischemic cardiomyopathy Presence of biventricular implantable cardioverter-defibrillator Ulcer Restless legs High cholesterol Anxiety Former smoker ICD (implantable cardioverter-defibrillator) in place Coronary artery disease CVA (cerebral vascular accident) PFO (patent foramen ovale) Cardiac resynchronization therapy defibrillator (SEAT COVER INSTALLER-D) in place Myocarditis Hyperlipidemia Hypertension Home Medications ?Medication ?Instructions ?Recorded ?Last Taken ?Type clonazepam 1 mg tablet 1 mg PO QHS anxiety 11/18/14 07/02/24 History trazodone 50 mg tablet 50 mg PO DAILY Anxiety 11/1804/19/25 20:30 History cholecalciferol (vitamin D3) 25 50 mcg (2 x 25 mcg (1, 000 unit)) 09/30/23 04/19/25 20:30 Rx mcg (1,000 unit) tablet PO QHS supplement #0 tabs aspirin 81 mg tablet,delayed 81 mg PO .COMPLEX heart 1 12/01/22 04/20/25 08:50 H istory release rosuvastatin 20 mg tablet 20 mg PO QHS cholesterol 12/1504/19/25 20:30 History acetaminophen 500 mg tablet 500 mg PO Q6H PRN PRN Pain Score 06/13/24 07/01/24 History 1-10 docusate sodium 100 mg capsule 100 mg PO DAILY PRN con stipation 06/13/24 07/02/24 History furosemide 20 mg tablet 20 mg PO QDAY PRN for 2lb we ight 06/13/24 06/19/24 History gain pantoprazole 40 mg tablet,delayed 40 mg PO DAILY GERD 07/17/24 04/20/25 08:50 History release baclofen 5 mg tablet 5 mg PO QDAY muscle spasms 0 08/03/24 Unknown History albuterol sulfate 90 mcg/actuation 1 puff inhalation Q 6H PRN 09/09/24 Unknown Rx aerosol inhaler shortness of breath or wheez ing #8.5 grams escitalopram oxalate 5 mg tablet 5 mg PO QDAY Mood 06/1504/20/25 08:50 History polyethylene glycol 3350 17 17 g PO DAILY Constipation 11/28/24 Unknown History gram/dose oral powder (Miralax) metformin 500 mg tablet 500 mg PO QDAY Diabetes 12/24 06/15 Unknown History metoprolol succinate 25 mg 25 mg PO QDAY BP 01/18/25 0 04/20/25 10:35 History tablet,extended release 24 hr (Toprol XL) lamotrigine 100 mg tablet 100 mg PO QDAY Anxiety 01/2304/20/25 08:50 History polyethylene glycol 400 0.25 % eye 1 drp ophthalmic (e ye) .q1hr PRN 01/23/25 Unknown History gel drops (Blink Gel Tears) Dry eyes ferrous sulfate 325 mg (65 mg 325 mg PO QDAY Supplemen t 02/13/25 04/20/25 08:30 History iron) tablet (Feosol) linaclotide 145 mcg capsule 145 mcg PO QAM Constipatio n #60 02/14/25 Unknown Rx (Linzess) caps hyoscyamine sulfate 0.125 mg tablet 0.125 mg PO TID [place] N dyspepsia #90 03/05/25 Unknown Rx tabs clopidogrel 75 mg tablet 75 mg PO .COMPLEX Antiplatel et 04/19/25 04/20/25 13:05 History deutetrabenazine 6 mg 6 mg PO DAILY involuntary Mo vements 04/19/25 04/20/25 08:50 History tablet,extended release 24 hr (Austedo XR) oxycodone-acetaminophen 5 mg-325 1 tab PO Q6H PRN PRN severe pain 04/19/25 Unknown History mg tablet phenazopyridine 100 mg tablet 100 mg PO TID PRN PRN bl adder pain 04/19/25 Unknown History Allergy/AdvReac Type Severity Reaction Status Date / Time No Known Allergies Allergy Verified 04/25/25 06:44 Family History Father Heart disease Myocardial infarction Mother Anxiety and depression Suicide and self-inflicted injury from suicide age 52. Surgical History History of cardiac catheterization Presence of stent in coronary artery History of bilateral cataract extraction History of skin surgery S/P colon polypectomy History of cardiac defibrillator placement History of cholecystectomy History of coronary artery stent placement Social History household members: spouse Smoking Status: Former smoker how long ago did patient quit smokin-1.5 ppd from teen until quit in 2008. alcohol intake: never substance use type: does not use caffeine: Yes seatbelt use: always do you feel safe at home: Yes additional social history: - Cuate FUENTES Constitutional Constitutional: Denies fatigue, fever(s), poor appetite, weight gain or weight loss Gastrointestinal Gastrointestinal: Denies belching, bloating, change in bowel habits, change in stool character, chewing difficulty, coffee ground emesis, constipation, cramping, diarrhea, dyspepsia, dysphagia, early satiety, excessive flatus, fecal incontinence, heartburn, hematemesis, hematochezia, hemorrhoids, loose stools, melena, nausea, odynophagia, rectal bleeding, tenesmus, vomiting or weight changes Physical Exam Const alert, oriented x3, no apparent distress and healthy appearing General Appearance: cooperative GI normal to inspection, nondistended, normoactive bowel sounds, soft to palpation, non-tender and non-distended Percussion: normal to percussion Rectal Exam: deferred Assessment & Plan Assessment/Plan (1) Irritable bowel syndrome: (2) Chronic anemia: (3) Ischemic colitis: (4) Blood in stool: PLAN: Assessment and Plan Assessment and Plan (1) Chronic constipation: Status: Chronic Plan: This is a 70 yo female pt here today for f/u regarding chronic constipation, abd pain and FOBT+. Pt recently seen by PCP who ordered stool testing which showed blood in her stool. Pt has a PMHx significant for ischemic colitis. Due to this she will undergo colonoscopy and EGD. She has been taking Linzess 72 mcg daily and miralax with a bm every two days. I will increase her dose to 145 mcg daily. Women's care referred her to urology. I recommended she make this appointment for further evalaution. -EGD and colonoscopy -Increase Linzess -Make appointment with urology -f/u after procedure (2) Abdominal pain: Status: Acute Qualifiers: Abdominal location: lower abdomen, unspecified Qualified Code(s): R10.30 - Lower abdominal pain, unspecified (3) Anemia: Status: Chronic Qualifiers: Anemia type: iron deficiency Iron deficiency anemia type: chronic blood loss Qualified Code(s): D50.0 - Iron deficiency anemia secondary to blood loss (chronic) (4) Blood in stool: Status: Acute Medications: New linaclotide (Linzess) 145 mcg PO QAM 60 caps 2RF
--- OUTSIDE RECORDS SUMMARY | 2025-04-25 06:48 | XMS RPT_ITS | CCD ---
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 Name Role Phone DR LARY WHEAT DO Primary Care Physician [phone] Jesus Manuel Freitas DO Primary Care Provider Jesus Manuel Freitas DO Primary Care Provider Jesus Manuel Freitas DO Primary Care Provider DR LARY WHEAT DO Primary Care Physician [phone] DR LARY WHEAT DO Primary Care Physician [phone] Jesus Manuel Freitas DO Primary Care Provider Odilon [employer] TENNIS COACH.NIRMALA, Kailyn K Unavailable ADRIENNE BYERS DO Primary Care Physician [phone] Gilbert [employer] TENNIS COACH.NIRMALA, Gissell Unavailable Jesus Manuel Freitas DO Primary Care Provider Odilon [employer] TENNIS COACH.NIRMALA, Kailny K Unavailable Gilbert [employer]'S TENNIS COACH.NIRMALA, Gissell Unavailable Dr. Adrienne Byers Primary Care Provider Dr. Alexsandra Vela Attending Provider Dr. Jose Turk Attending Provider Dr. Uday Orosco Emergency Provider Dr. Tony Corona Admit Provider Unavailabl e Dr. Tony Corona Other Provider Unavailabl e Dr. Ben Johnson Attending Provider Dr. Ben Johnson Other Provider Dr. Adrienne Byers Referring Provider [phone] Brisa Jennings Attending Provider Unavailable Le, Dr. David Emergency Provider Dr. Jaci Greco Attending Provider Dr. Tony Corona Referring Provider Unavail able Dr. Jaci Greco Admit Provider Dr. Jaci Greco Other Provider Dr. Tony Mayer Attending Provider Unavailable Dr. Tony Mayer Other Provider Unavailable Dr. Camacho Aguilar Attending Provider Dr. Camacho Aguilar Other Provider Dr. Adrienne Byers Primary Care Provider Dr. Adrienne Byers Referring Provider Dr. Danish Tavarez Attending Provider Dr. Adrienne Byers Primary Care Provider Dr. Jose Jaime Emergency Provider Dr. Ben Johnson Admit Provider Dr. Ben Johnson Attending Provider Dr. Ben Johnson Other Provider Dr. Heike Horta Attending Provider Korkwame, Dr. Heike Matute Other Provider Levy, Dr. Torrez Attending Provider Dr. Yoandy Thakkar Other Provider Dr. Ganesh Kiran Attending Provider Dr. Ganesh Kiran Other Provider Dr. Adrienne Christine Attending Provider [phone] Ben Johnson Referring Provider Dr. Heike Horta Referring Provider Jesus Manuel Freitas DO Primary Care Provider James MORENO, Umar A Unavailable ADRIENNE BYERS DO Primary Care Unavailable ADRIENNE BYERS DO Attending Unavailable HALKO DO, ADRIENNE Primary Care Unavailable NANDINI GORMAN, ANIRUDH Yeboah Attending Unavavitaliy lable HALKO DO, ADRIENNE Primary Care Unavailable HATTIE MORENO, JAXON Henderson Attending Unavail able HALKO DO, ADRIENNE Attending Unavailable HALKO DO, ADRIENNE Primary Care Unavailable HALKO DO, ADRIENNE Primary Care Unavailable HATTIE MORENO, JAXON Henderson Attending Unavail able MICHAELEHNLEN, ADRIENNE Attending Unavailable HALKO DO, ADRIENNE Primary Care Unavailable HALKO DO, ADRIENNE Primary Care Unavailable FERMIN MORENO, DR NATHAN Attending Unavailab le HALKO DO, ADRIENNE Primary Care Unavailable HATTIE MORENO, JAXON Henderson Attending Unavail able HALKO DO, ADRIENNE Primary Care Unavailable HALKO DO, ADRIENNE Attending Unavailable HALKO DO, ADRIENNE Primary Care Unavailable FERMIN MORENO, DR NATHAN Attending Unavailab le HALKO DO, ADRIENNE Attending Unavailable HALKO DO, ADRIENNE Primary Care Unavailable HALKO DO, ADRIENNE Attending Unavailable HALKO DO, ADRIENNE Primary Care Unavailable HALKO DO, ADRIENNE Primary Care Unavailable HALKO DO, ADRIENNE Attending Unavailable HALKO DO, ADRIENNE Primary Care Unavailable HALKO DO, ADRIENNE Attending Unavailable MARY ALICE DO, DR YORK Referring Unavailable JAMES MORENO, CARLA HANSON Attending Unavailab le HALKO DO, ADRIENNE Primary Care Unavailable HALKO DO, ADRIENNE Attending Unavailable HALKO DO, ADRIENNE Primary Care Unavailable HALKO DO, ADRIENNE Primary Care Unavailable JAMES MORENO, CARLA HANSON Attending Unavailab le HALKO DO, ADRIENNE Primary Care Unavailable HALKO DO, ADRIENNE Attending Unavailable FERMIN MORENO, DR NATHAN Attending Unavailab le HALKO DO, ADRIENNE Primary Care Unavailable GALO MAYERS Attending Unavailable HALKO DO, ADRIENNE Primary Care Unavailable Rick Mcdermott APRN, CNP Primary Care Pr ovider Marci Lopez Primary Care Provider Rick Mcdermott APRN, CNP Primary Care Pr ovider MARTHA PILLAI Referring Unavailable BROWN, JESUS MANUEL R Primary Care Unavailable ANGL, KALEN Referring Unavailable BROWN, JESUS MANUEL R Primary Care Unavailable ANGL, KALEN Referring Unavailable BROWN, JESUS MANUEL R Primary Care Unavailable ANGL, KALEN Referring Unavailable BROWN, JESUS MANUEL R Primary Care Unavailable John FOWLER, Dr. Marci Baird Primary Care Provid er John FOWLER, Dr. Marci Baird Attending Provider John FOWLER, Dr. Marci Baird Referring Provider Addison FOWLER, Dr. Garcia Attending Provider Addison FOWLER, Dr. Garcia Emergency Provider Rosa Pabon Attending Provider Dr. Adrienne Christine MD Attending Provider Rosa Pabon Referring Provider Dipti Matt Attending Provider Kaykay Siegel Attending Provider Earnest MORENO, Dr. Meyers Attending Provider Earnest MORENO, Dr. Meyers Referring Provider Dr. Danish Tavarez MD Attending Provider Daysi MORENO, Dr. Peng Referring Provider Marcin KOCH-CMayte Attending Provider KATIEKAMMONPINA Referring Unavailable MCCRORPINA Henderson Attending Unavailable JOHN, MARCI Primary Care Unavailable JOHN, MARCI Referring Unavailable JOHN, MARCI Attending Unavailable TONI, RICK Primary Care Unavailable JOHN, MARCI Referring Unavailable JOHN, MARCI Attending Unavailable JOHN, MARCI Primary Care Unavailable JOHN, MARCI Referring Unavailable JOHN, MARCI Attending Unavailable JOHN, MARCI Primary Care Unavailable John , Dr. Marci Baird Primary Care Provid er John FOWLER, Dr. Marci Baird Referring Provider Rosa Pabon Attending Provider John FOWLER, Dr. Marci Baird Attending Provider Dr. Jose Jaime DO Attending Provider [phone] Addison FOWLER, Dr. Garcia Emergency Provider LEYLA MURPHY Referring Unavailable BROWN, JESUS MANUEL R Primary Care Unavailable LEYLA MURPHY Referring Unavailable BROWN, JESUS MANUEL R Primary Care Unavailable John FOWLER, Dr. Marci Baird Primary Care Provid er John DO, Dr. Marci Baird Referring Provider Rosa Pabon Attending Provider Vito FOWLER, Dr. Walters Emergency Provider Vito DO, Dr. Walters Emergency Provider Kwesi FOWLER, Dr. Marsh Admit Provider Kwesi FOWLER, Dr. Marsh Attending Provider Kwesi FOWLER, Dr. Marsh Other Provider [phone] BROWN, JESUS MANUEL R Primary Care Unavailable LEYLA MURPHY Attending Unavailable BROWN, JESUS MANUEL R Primary Care Unavailable GHAZALA GUSMAN Attending Unavailable BROWN, JESUS MANUEL R Primary Care Unavailable [facility] Attending Unavailabl e [facility] Referring [facility]availabl e [facility] Unavailabl e Romeo Padron Attending Unavailable Miya Thomas Attending Unavailable Miya Thomas Consulting Unavailable Miya Thomas Admitting Unavailable [facility] Primary Care [facility]availabl e [facility] Unavailabl Jose Clements Attending Unavailable [facility] Primary Care Unavailabl e Jose Jaime Attending Unavailable Anabell Simms Attending Unavailable [facility] Primary Care Unavailabl e Miya Thomas Consulting Unavailable Miya Thomas Admitting Unavailable Maximo Orosco Admitting Unavailable Maximo Orosco Attending Unavailable [facility] Primary Care [facility]availabl e [facility] Unavailabl e Estuardo, Alonso Chi Admitting Unavailable Estuardo, Alonso Chi Referring Unavailable Estuardo, Alonso Chi Attending Unavailable Anabell Simms Attending Unavailable Anabell Simms Consulting Unavailable Anabell Simms Referring Unavailable Shan Lockett Attending Unavailable Rosa Rodriguez Attending Unavailable Rosa Rodriguez Referring Unavailable [facility] Un[facility]ail[facility] Adrienne Sarabia Referring Unavailable Adrienne Christine Attending Unavailable [facility] Attending Unavailabl e [facility] Referring Unavailabl e [facility] Care Unavailabl e Rosa Rodriguez Attending Unavailable [facility] Unavailabl e Rosa Rodriguez Referring Unavailable IscLuigi albrecht Referring Unavailable Luigi Tinoco Attending Unavailable [facility] Unavailabl e Adrienne Byers Primary Care Unavailable Adrienne Byers Attending Unavailable Adrienne Byers Referring Unavailable [facility] Unavailabl e Varun Morrell Attending Unavailable Danish Tavarez Attending Unavailable Daysi [place] Referring Unavailable [facility] Unavailabl e Danish Tavarez Referring Unavailable Danish Tavarez Attending Unavailable [facility] Unavailabl e Luigi Tinoco Attending Unavailable [facility] Unavailabl e [facility] Referring Unavailabl e [facility] Referring Unavailabl e [facility] Unavailabl Dipti Cervantes Attending Unavailable Shan Lockett Attending Unavailable [facility] Unavailabl e [facility] Referring [facility]ailabl e [facility] Unavailabl Jose Nunn Attending Unavailable Shan Lockett Attending Unavailable Adrienne Byers Primary Care Unavailable Adrienne Byers Referring Unavailable [facility] Referring Unavailabl e Rosa Rodriguez Attending Unavailable [facility] Unavailabl e [facility] Referring Unavailabl e [facility] Care Unavailabl Adrienne Sarabia Attending Unavailable [facility] Unavailabl e Kaykay Siegel Attending Unavail able [facility] Referring [facility] e [facility] Unavail[facility] e Luigi Tinoco Attending Unavailable [facility] Referring Unavailabl e [facility] Unavailabl e Danish Tavarez Attending Unavailable Daysi, Danish Referring Unavailable [facility] Referring Unavailabl e [facility] Unavailabl e Jose Turk Attending Unavailable [facility] Referring Unavailabl e Rosa Rodriguez Attending Unavailable [facility] e [facility] Unavailabl e Danish Tavarez Attending Unavailable Daysi, [place] Referring Unavailable [facility] Unavailabl e Mayte Burch NP Attending Unavailable [facility] Referring Unavailabl e Rosa Rodriguez Attending Unavailable [facility] Unavailabl e [facility] Referring Unavailabl e [facility] Referring Unavailabl e [facility] Unavailabl Adrienne Sarabia Attending Unavailable Luigi Tinoco Attending Unavailable [facility] Unavailabl e [facility] Referring UnavailAdrienne Sabillon Attending Unavailable Adrienne Byers Referring Unavailable [facility] Unavailabl e [facility] Unavailabl e Alexsandra Vela Attending Unavailabl e [facility] Unavailabl Yuridia Mahmood NP Attending Unavailable Maximo Orosco Attending Unavailable Maximo Orosco Consulting Unavailable Maximo Orosco Admitting Unavailable [facility] Unavailabl e [facility] Referring Unavailabl e Rosa Rodriguez Attending Unavailable [facility] Unavailabl Rosa Bellamy Attending Unavailable [facility] Unavailabl e [facility] Referring Unavailabl e [facility] Unavailabl e Jeffrey Justice Referring Unavailabl e Jeffrey Justice Attending Unavailabl e Allergies Allergy Classification Reported Allergen(s) Allergy Type Date of Onset Reaction(s) Facility HMG-CoA Reductase Inhibitors (statins) (1 source) atorvastatin Drug Allergy 04-03-2010 [facility] (20 sources) atorvastatin; Translations: [ATORVASTATIN CALCIUM] Drug Allergy 04-03-2010 [facility] Medications Current Medications Medication Drug Class(es) Dates Sig (Normalized) Sig (Original) acetaminophen 500 mg oral tablet (20 sources) Start: 06-13-2024 take 1 tablet by mouth every six hours as needed for pain Acetaminophen 500 mg tablet Active 500 mg PO EVERY 6 HOURS NEEDED as needed for Pain Score 1-10 June 13, 2024 1:50pm Start: 03-22-2024 Acetaminophen 500 mg cap 500 mg. 03/22/2024 Active Start: 03-13-2024 End: 06-13-2024 take 2 tablets by mouth every six hours as needed for pain Acetaminophen 500 mg Tablet Discontinued 1000 mg PO EVERY 6 HOURS NEEDED as needed for Pain Score 1-10 0 March 13, 2024 12:00am June 13, 2024 1:57pm Start: 03-13-2024 take 1000 mg by mout h every six hours as needed Acetaminophen Active 1000 MG PO EVERY 6 HOURS NEEDED 0 March 13, 2024 12:00am Start: 02-29-2024 End: 03-13-2024 take 2 tablets by mouth every four hours as needed for pain Acetaminophen 325 mg Tablet Discontinued 650 mg PO EVERY 4 HOURS NEEDED as needed for Fever, pain 1-10/10 0 February 29, 2024 12:00am March 13, 2024 5:50pm Start: 02-29-2024 End: 03-13-2024 take 650 mg by mouth every four hours as needed Acetaminophen Discontinued 650 MG PO EVERY 4 HOURS NEEDED 0 February 29, 2024 12:00am March 13, 2024 5:50pm acetaminophen 325 mg / oxyCODONE hydrochloride 5 mg oral tablet (20 sources) Opioid Agonist Start: 02-05-2025 Oxycodone-Acet aminophen 5-325 mg tablet Active 1 {tbl} PO EVERY 6 HOURS NEEDED as needed for severe pain April 19, 2025 12:00am Start: 11-18-2024 End: 11-28-2024 Oxycodone-Acetaminophen (Per cocet) 5-325 mg tablet Discontinued 1 {tbl} PO EVERY 6 HOURS as needed for pain 8 November 18, 2024 November 28, 2024 3:07pm Start: 06-28-2024 End: 07-03-2024 Oxycodone-Acetaminophen (Per cocet) 5-325 mg tablet Discontinued 1 {tbl} PO EVERY 6 HOURS as needed for pain 12 June 28, 2024 July 03, 2024 6:47pm ARIPiprazole 2 mg oral tablet (20 sources) Atypical Antipsychotic Start: 01-04-2020 End: 05-12-2023 Abilify 2 mg oral tablet Dose : 2 mg = 1 tab(s), Oral, qDay, 0 Refill(s) Start Date: 01/04/20 Status: Ordered Comment on above: Take 2 mg by mouth o nce daily. azithromycin 250 mg oral tablet (1 source) Macrolide Antimicrobial Start: 11-20-2021 End: 11-25-2021 Zithromax 250 mg oral tablet Take two (2) tablets day 1-then one (1) tablet, Oral, Daily, X 5 day(s), # 6 tab(s), 0 Refill(s), 11/25/21 10:33:00 EST, Pharmacy: [place] [id number] [facility], 172, cm, 11/20/21 10:16:00 EST, Height, 72, kg, 11/20/21 10:16:00 EST, Dosing Weight Start Date: 11/20/21 Stop Date: 11/25/21 Status: Ordered baclofen 5 mg oral tablet (20 sources) gamma-Aminobutyric Acid-ergic Agonist Start: 08-03-2024 take 1 tablet by mouth once daily Baclofen 5 mg tablet Active 5 mg PO daily August 03, 2024 3:45pm Start: 10-29-2023 End: 06-13-2024 take 1 tablet by mouth twice daily Baclofen 5 mg tablet Discontinued 5 mg PO TWICE A DAY February 21, 2024 12:00am June 13, 2024 1:57pm Start: 10-07-2023 End: 02-21-2024 take 1 tablet by mouth twice daily Baclofen 10 mg tablet Discontinued 10 mg PO TWICE A DAY October 07, 2023 1:00am February 21, 2024 6:38pm Start: 05-12-2023 End: 08-03-2024 take 1 tablet by mouth four times daily baclofen 5 mg tablet 1 tab po qid. Do not abruptly stop if at high dose, risk for withdrawal seizures. 360 tablet 3 05/17/2024 Active Start: 04-15-2023 End: 05-12-2023 take 2 tablets by mouth three times daily baclofen (LIORESAL) 5 mg tablet Take 2 tablets by mouth three times daily. Do not abruptly stop if at high dose, risk for withdrawal seizures. 90 tablet 1 04/15/2023 05/12/2023 Discontinued Start: 11-05-2022 End: 02-03-2023 take 2 tablets by mouth three times daily baclofen (LIORESAL) 5 mg tablet Take 2 tablets by mouth three times daily. Do not abruptly stop if at high dose, risk for withdrawal seizures. 90 tablet 2 11/05/2022 02/03/2023 Active Start: 07-18-2021 End: 10-07-2023 take 1 tablet by mouth every twelve hours Baclofen 5 mg tablet Discontinued 5 mg PO Q12H September 28, 2023 1:00am October 07, 2023 1:54pm Start: 07-18-2021 End: 11-05-2022 baclofen 5 mg oral tablet Do se : 5 mg = 1 tab(s), Oral, BID, decreased dose 11/27/22, 0 Refill(s) Start Date: 07/18/21 Status: Ordered Start: 07-18-2021 End: 06-04-2022 take 1 tablet by mouth three times daily baclofen (LIORESAL) 5 mg tablet Take 1 tablet by mouth three times daily. Do not abruptly stop if at high dose, risk for withdrawal seizures. 90 tablet 0 05/01/2022 06/04/2022 Discontinued Comment on above: Take 1 tablet by maida th three times daily. Do not abruptly stop if at high dose, risk for withdrawal seizures. Take 1 tablet by maida th four times daily. Do not abruptly stop if at high dose, risk for withdrawal seizures. Take 2 tablets by mo uth three times daily. Do not abruptly stop if at high dose, risk for withdrawal seizures. 1 tab am, midday and 2 tab hs. Do not abruptly stop if at high dose, risk for withdrawal seizures. carvedilol 3.125 mg oral tablet (20 sources) alpha-Adrenergic Tomeka, beta-Adrenergic Tomeka Start: 11-30-2022 carvedilol 3.125 mg oral tablet Dose : 3.125 mg = 1 tab(s), Oral, BIDM, 0 Refill(s) Start Date: 11/30/22 Status: Ordered Start: 06-09-2022 carvedilol 3.1 25 mg oral tablet Dose : 1.563 mg = 0.5 tab(s), Oral, BID, # 30 tab(s), 6 Refill(s), Pharmacy: [facility]/pharmacy #[id number], 172.7, cm, 06/09/22 8:41:00 EDT, Height, kg, 06/09/22 8:41:00 EDT, Dosing Weight Start Date: 06/09/22 Status: Ordered Start: 06-01-2022 carvedilol 3.1 25 mg oral tablet Dose : 3.125 mg = 1 tab(s), Oral, qHS, # 180 tab(s), 0 Refill(s), called to pharmacy (Rx) Start Date: 06/01/22 Status: Ordered Start: 05-19-2022 carvedilol 3.1 25 mg oral tablet Dose : 3.125 mg = 1 tab(s), Oral, BID, # 180 tab(s), 0 Refill(s), Pharmacy: [facility]/pharmacy #[id number], 172.7, cm, 05/12/22 12:20:00 EDT, Height Start Date: 05/19/22 Status: Ordered Start: 05-19-2022 End: 10-20-2023 carvedilol (COREG) 3.125 mg tablet 3.125 mg. 0 05/19/2022 10/20/2023 Discontinued Comment on above: 3.125 mg. Celebrate Multivitamin oral tablet, chewable (20 sources) Start: 022 take 1 tablet by mouth once daily Celebrate Multivitamin oral tablet, chewable Dose = 2 tab(s), Chewed, qDay, 0 Refill(s) Start Date: 05/12/22 Status: Ordered cephalexin 500 mg oral capsule (1 source) Cephalosporin Antibacterial Start: End: cephalexin 500 mg oral capsule Dose : 500 mg = 1 cap(s), Oral, QID, Take with a probiotic, X 7 day(s), # 28 cap(s), 0 Refill(s), 08/26/22 23:45:00 EDT, Generalized weakness Fatigue, 71.5 Start Date: 08/19/22 Stop Date: 08/26/22 Status: Ordered cholecalciferol 0.01 mg oral tablet (20 sources) Vitamin D Start: cholecalciferol 10 mcg (400 intl units) oral tablet Dose : 10 mcg = 1 tab(s), Oral, Daily, # 30 tab(s), 0 Refill(s) Start Date: 03/22/24 Status: Ordered Start: 09-30-2023 take 1 tablet by maida th at bedtime Cholecalciferol (Vitamin D3) 25 mcg (1,000 unit) Tablet Active 50 ug PO AT BEDTIME 0 September 30, 2023 1:00am Start: 04-29-2023 Vitamin D (3) 45 units oral capsule See Instructions, 0 Refill(s) Start Date: 04/29/23 Status: Ordered Start: 04-29-2023 take 1 tablet by maida th once daily cholecalciferol (VITAMIN D3) 1,000 unit tab tablet Take 1,000 Units by mouth once daily. 04/29/2023 Active ciprofloxacin 3 mg/ml / dexamethasone 1 mg/ml otic suspension (2 sources) Corticosteroid, Quinolone Antimicrobial Start: 12-08-2022 Ciprodex 0.3%-0.1% otic suspension Dose = 4 drop(s), Ear, left, BID, # 7.5 mL, 0 Refill(s), Pharmacy: [facility]/pharmacy #[id number], 172.7, cm, 12/08/22 14:58:00 EST, Height Start Date: 12/08/22 Status: Ordered clonazePAM 1 mg oral tablet (20 sources) Benzodiazepine Start: 11-18-2014 End: 06-20-2024 take 1 tablet by mouth once daily at bedtime clonazePAM (KLONOPIN) 1 mg tablet Take 1 mg by mouth daily at bedtime. 05/18/2022 Active Comment on above: Take 1 mg by mouth d aily at bedtime. clopidogrel 75 mg oral tablet (20 sources) P2Y12 Platelet Inhibitor Start: 05-18-2016 End: 03-13-2024 Clopidogrel 75 MG tablet Discontinued 1 {tbl} PO AT BEDTIME May 18, 2016 12:00am March 13, 2024 5:51pm Start: 12-26-2009 End: 04-19-2025 Clopidogrel 75 mg Tablet Act aimee 75 mg PO .COMPLEX April 19, 2025 12:00am 75 mg orally Wednesday, Wednesday, Wednesday; Comment on above: Take one(1) tablet d aily. Take 75 mg by mouth once daily. dapagliflozin 5 mg oral tablet (1 source) Sodium-Glucose Cotransporter 2 Inhibitor Start: Farxiga 5 mg oral tablet Dose : 5 mg = 1 tab(s), Oral, qDay, # 30 tab(s), 6 Refill(s), Pharmacy: [facility]/pharmacy #[id number], 172.7, cm, 02/17/22 15:57:00 EDT, Height, kg, 02/17/22 15:57:00 EDT, Dosing Weight Start Date: 02/17/22 Status: Ordered Deutetrabenazine (Austedo Xr) 6 mg tablet extended release 24 hr (1 source) Start: take 1 tablet by mouth once daily Deutetrabenazine (Austedo Xr) 6 mg tablet extended release 24 hr Active 6 mg PO DAILY April 19, 2025 12:00am deutetrabenazine XR (AUSTEDO XR) 6 mg tablet (5 sources) Start: End: take 1 tablet by mouth once daily deutetrabenazine XR (AUSTEDO XR) 6 mg tablet Take 1 tablet by mouth once daily. 30 tablet 5 03/30/2025 11:08 AM EDT 03/12/2025 09/08/2025 Active Start: 03-12-2025 End: 09-08-2025 take 1 tablet by mouth once daily deutetrabenazine XR (AUSTEDO XR) 6 mg tablet Take 1 tablet by mouth once daily. 30 tablet 5 03/12/2025 09/08/2025 Active docusate sodium 100 mg oral capsule (20 sources) Start: 06-13-2024 take 1 capsule by mo [facility] once daily as needed for constipation Docusate Sodium 100 mg capsule Active 100 mg PO DAILY as needed for constipation June 13, 2024 12:00am Start: 07-29-2023 docusate sodiu m 100 mg oral capsule Dose : 100 mg = 1 cap(s), Oral, BID, PRN as needed for constipation, # 60 cap(s), 2 Refill(s), Pharmacy: [facility]/pharmacy #[id number], 172.7, cm, 08/27/23 13:53:00 EDT, Height, kg, 08/27/23 13:53:00 EDT, Dosing Weight Start Date: 09/08/23 Status: Ordered Docusate Sodium 100 mg tab Take by mouth once daily. Active escitalopram 5 mg oral tablet (20 sources) Serotonin Reuptake Inhibitor Start: 11-28-2024 take 1 tablet by mouth once daily Escitalopram Oxalate 5 mg tablet Active 5 mg PO daily November 28, 2024 1:00am Start: 04-29-2023 End: 02-27-2025 take 1 tablet by mouth once daily Escitalopram Oxalate 10 mg tablet Discontinued 10 mg PO DAILY February 21, 2024 12:00am July 03, 2024 6:46pm End: 06-23-2022 take 1 tablet by mouth once daily escitalopram oxalate (LEXAPRO) 20 mg tablet Take 20 mg by mouth once daily. 0 06/23/2022 Discontinued (Other) Comment on above: Take 20 mg by mouth once daily. ferrous sulfate 325 mg oral tablet (19 sources) Start: 02-13-2025 take 1 tablet by mouth once daily Ferrous Sulfate (Feosol) 325 mg (65 mg iron) tablet Active 325 mg PO daily February 13, 2025 12:00am Start: 08-01-2024 End: 11-28-2024 Ferrous Sulfate 325 mg (65 m g iron) capsule, extended release Discontinued mg PO August 01, 2024 12:00am November 28, 2024 3:09pm furosemide 20 mg oral tablet (20 sources) Loop Diuretic Start: 03-20-2022 furosemide (LA SIX) 20 mg tablet as needed. 06/03/2022 Active Start: 03-09-2022 take 1 tablet by maida th once daily Lasix 20 mg oral tablet See Instructions, 1 tab(s) Oral qDay on Wed, Thur, Sat, Sun, # 30 tab(s), 6 Refill(s), Pharmacy: [facility]/pharmacy #[id number], 172.7, cm, 03/09/22 15:20:00 EDT, Height, kg, 03/09/22 15:20:00 EDT, Dosing Weight Start Date: 03/09/22 Status: Ordered Start: 03-03-2022 Lasix 20 mg or al tablet Dose : 20 mg = 1 tab(s), Oral, qDay, # 30 tab(s), 0 Refill(s) Start Date: 03/03/22 Status: Ordered Start: 02-17-2022 Lasix 20 mg or al tablet Dose : 20 mg = 1 tab(s), Oral, Mon/Wed/Wed, # 30 tab(s), 3 Refill(s), [id number] 172.7, cm, 02/17/22 15:57:00 EDT, Height, kg, 02/17/22 15:57:00 EDT, Dosing Weight Start Date: 02/17/22 Status: Ordered Start: 12-05-2021 Lasix 20 mg or al tablet Dose : 20 mg = 1 tab(s), Oral, qDay, # 30 tab(s), 3 Refill(s), Pharmacy: [facility]/pharmacy #[id number], 172.7, cm, 12/24/21 2:11:00 EST, Height, kg, 12/24/21 2:11:00 EST, Dosing Weight Start Date: 12/25/21 Status: Ordered Comment on above: as needed. glipiZIDE er 2.5 mg 24 hr extended release oral tablet (20 sources) Sulfonylurea Start: 02-12-2022 glipiZIDE 2.5 mg oral tablet, extended release Dose : 2.5 mg = 1 tab(s), Oral, qDayM, # 90 tab(s), 1 Refill(s), Pharmacy: [facility], 172.7, cm, 12/30/21 10:10:00 EST, Height, kg, 02/12/22 11:01:00 EDT, Dosing Weight Start Date: 02/12/22 Status: Ordered Start: 07-18-2021 glipiZIDE 2.5 mg oral tablet, extended release Dose : 2.5 mg = 1 tab(s), Oral, qDayM, # 90 tab(s), 1 Refill(s), Pharmacy: [facility], 172, cm, 07/18/21 13:16:00 EDT, Height, kg, 07/18/21 13:16:00 EDT, Dosing Weight Start Date: 07/18/21 Status: Ordered hyoscyamine sulfate 0.125 mg oral tablet (19 sources) Start: 12-01-2024 End: 03-05-2025 take 1 tablet by mouth three times daily as needed Hyoscyamine Sulfate 0.125 mg tablet Active 0.125 mg PO THREE TIMES A DAY as needed for dyspepsia March 05, 2025 1:49pm take 0.125 mg by maida th three times daily hyoscyamine sulfate 0.125 mg ODT Take 0. 125 mg by mouth three times a day. Active Iron Chews (20 sources) Start: 05-01-2022 Iron Chews See Instructions, 18 mcg gummy daily, 0 Refill(s) Start Date: 05/01/22 Status: Ordered lamoTRIgine 100 mg oral tablet (15 sources) Mood Stabilizer, Anti-epileptic Agent Start: 01-23-2025 take 1 tablet by mouth once daily Lamotrigine 100 mg tablet Active 100 mg PO daily January 23, 2025 1:00am linaclotide 0.145 mg oral capsule (19 sources) Guanylate Cyclase-C Agonist Start: 02-14-2025 take 1 capsule by mouth once daily in the morning LINZESS 145 mcg capsule Take 145 mcg by mouth every morning. 02/14/2025 Active Start: 12-12-2024 End: 04-19-2025 take 1 capsule by mouth once daily in the morning Linaclotide (Linzess) 72 mcg capsule Discontinued 72 ug PO EVERY MORNING December 12, 2024 1:00am April 19, 2025 1:29pm lisinopril 5 mg oral tablet (8 sources) Angiotensin Converting Enzyme Inhibitor Start: 02-13-2021 End: 06-23-2022 lisinopril 5 mg oral tablet Dose : 5 mg = 1 tab(s), Oral, qDay, X 90 day(s), # 90 tab(s), 3 Refill(s), 02/08/22 10:37:00 EDT, Pharmacy: [facility], 171, cm, 12/11/20 15:33:00 EST, Height, kg, 02/11/21 13:50:00 EDT, Dosing Weight Start Date: 02/13/21 Stop Date: 02/08/22 Status: Ordered Comment on above: Take 5 mg by mouth o nce daily. magnesium (as citrate)-melatonin 71.5 mg-1 mg oral tablet (2 sources) Start: 05-01-2022 take 1 tablet by mouth once daily magnesium (as citrate)-melatoni n 71.5 mg-1 mg oral tablet See Instructions, [facility] Brand 84 mg gummy daily, 0 Refill(s) Start Date: 05/01/22 Status: Ordered metFORMIN hydrochloride 500 mg oral tablet (20 sources) Biguanide Start: 01-18-2025 take 1 tablet by mouth once daily Metformin 500 mg tablet Active 500 mg PO daily January 18, 2025 1:00am Start: 02-21-2024 End: 11-23-2024 take 1 tablet by mouth once daily Metformin 500 mg tablet extended release 24 hr Discontinued 500 mg PO DAILY February 21, 2024 12:00am November 23, 2024 3:24pm Start: 11-18-2014 End: 10-26-2023 take 1 tablet by mouth twice daily metFORMIN (GLUCOPHAGE) 500 mg tablet Take 1 tablet by mouth twice daily. 0 12/06/2014 Active Start: 11-18-2014 End: 02-21-2024 take 1 tablet by mouth once daily Metformin 500 MG tablet Discontinued 500 mg PO DAILY November 18, 2014 1:00am February 21, 2024 2:33pm Comment on above: Take 1 tablet by maida twice daily. pantoprazole 40 mg delayed release oral tablet (20 sources) Proton Pump Inhibitor Start: 4 End: take 1 tablet by mouth once daily Pantoprazole 40 mg tablet,delayed release (DR/EC) Active 40 mg PO DAILY July 17, 2024 12:00am Start: 03-14-2020 pantoprazole 4 0 mg oral enteric coated tablet Dose : 40 mg = 1 tab(s), Oral, qDay, # 90 tab(s), 3 Refill(s), Pharmacy: [facility], 172, cm, 10/03/19 13:33:00 EST, Height, kg, 01/04/20 14:14:00 EST, Dosing Weight Start Date: 03/14/20 Status: Ordered Start: 12-12-2014 End: 07-03-2024 take 1 tablet by mouth twice daily pantoprazole DR (PROTONIX) 40 mg tablet Take 1 tablet by mouth twice daily. 02/05/2015 Active Start: 11-18-2014 End: 12-12-2014 take 1 tablet by mouth once daily Pantoprazole 40 MG tablet Discontinued 40 mg PO DAILY November 18, 2014 1:00am December 12, 2014 9:45am Comment on above: Take 1 tablet by maida twice daily. phenazopyridine hydrochloride 100 mg oral tablet (1 source) Start: 04-19-20 take 1 tablet by mouth three times daily as needed for pain Phenazopyridine 100 mg tablet Active 100 mg PO 3 TIMES DAILY NEEDED as needed for bladder pain April 19, 2025 12:00am polyethylene glycol 3350 03462 mg powder for oral solution (20 sources) Osmotic Laxative Start: 11-28-19 Polyethylene Glycol 3350 (Miralax) 17 gram/dose powder Active 17 g PO DAILY November 28, 2024 1:00am Start: 11-28-2024 Polyethylene G lycol 3350 (Miralax) 17 gram/dose powder Active 17 g PO TWICE A DAY November 28, 2024 1:00am Start: 07-29-2023 End: 03-13-2024 Polyethylene Glycol 3350 (Mi ralax) 17 gram/dose powder Discontinued 17 g PO DAILY February 29, 2024 12:00am March 13, 2024 5:52pm Hold if more than 1 bowel moods per day polyethylene glycol 400 2.5 mg/ml ophthalmic solution (4 sources) Start: 01-23-2025 Polyethylene G lycol 400 (Blink Gel Tears) 0.25 % drops,gel Active NMA OPHTHALMIC January 23, 2025 1:00am Polyethylene Glycols (11 sources) polyethylene gly col 400 (BLINK TEARS OPHTHALMIC) Use in eyes. Active pramipexole dihydrochloride 0.125 mg oral tablet (5 sources) Nonergot Dopamine Agonist Start: 11-05-2022 End: 11-19-2022 pramipexole 0.125 mg oral tablet Dose : 0.25 mg = 2 tab(s), Oral, TID, start one tablet three times per day, after 7 days if no improvement increase to 2 tablets three times per day, # 84 tab(s), 0 Refill(s), Pharmacy: [facility]/pharmacy #[id number], 172.7, cm, 11/02/22 16:36:00 EST, Height Start Date: 11/05/22 Stop Date: 11/19/22 Status: Ordered End: 06-23-2022 take 1 tablet by mouth three times daily pramipexole (MIRAPEX) 0.25 mg tablet Take 0.25 mg by mouth three times daily. 0 06/23/2022 Discontinued (Other) Comment on above: Take 0.25 mg by mout h three times daily. ramipril 2.5 mg oral capsule (10 sources) Angiotensin Converting Enzyme Inhibitor Start: 02-12-2022 ramipril 2.5 mg oral capsule Dose : 2.5 mg = 1 cap(s), Oral, qDay, # 90 cap(s), 1 Refill(s), Pharmacy: [facility], 172.7, cm, 12/30/21 10:10:00 EST, Height, kg, 02/12/22 11:01:00 EDT, Dosing Weight Start Date: 02/12/22 Status: Ordered Start: 02-04-2022 ramipril 2.5 m g oral capsule Dose : 2.5 mg = 1 cap(s), Oral, qDay, # 30 cap(s), 0 Refill(s), Pharmacy: [facility]/pharmacy #[id number], 172.7, cm, 12/30/21 10:10:00 EST, Height, kg, 12/30/21 10:10:00 EST, Dosing Weight Start Date: 02/04/22 Status: Ordered Start: 12-05-2021 End: 02-03-2022 ramipril 2.5 mg oral capsule Dose : 2.5 mg = 1 cap(s), Oral, qDay, # 30 cap(s), 1 Refill(s), Pharmacy: [facility]/pharmacy #[id number], 162, cm, 11/22/21 4:04:00 EST, Height, kg, 11/22/21 4:04:00 EST, Dosing Weight Start Date: 12/05/21 Stop Date: 02/03/22 Status: Ordered rosuvastatin calcium 20 mg oral tablet (20 sources) HMG-CoA Reductase Inhibitor Start: 10-29-2023 take 1 tablet by mouth at bedtime Rosuvastatin 20 mg tablet Active 20 mg PO AT BEDTIME February 21, 2024 12:00am Start: 09-24-2023 End: 10-07-2023 take 1 tablet by mouth at bedtime Rosuvastatin 20 mg tablet Discontinued 20 mg PO AT BEDTIME September 28, 2023 1:00am October 07, 2023 1:56pm Start: 04-29-2023 rosuvastatin 2 0 mg oral tablet 0 Refill(s) Start Date: 04/29/23 Status: Ordered Start: 05-26-2022 take 1 tablet by maida th once daily rosuvastatin 20 mg oral tablet 1 tab(s), Oral, qDay, stop as of 11/27/22, # 90 tab(s), 3 Refill(s), Pharmacy: [facility], 172.7, cm, 05/12/22 12:20:00 EDT, Height, kg, 05/22/22 12:54:00 EDT, Dosing Weight Start Date: 05/26/22 Status: Ordered Start: 06-16-2021 rosuvastatin 2 0 mg oral tablet Dose : 20 mg = 1 tab(s), Oral, Daily, # 90 tab(s), 3 Refill(s), Pharmacy: [facility], 170.3, cm, 04/17/21 13:26:00 EDT, Height, kg, 04/17/21 13:26:00 EDT, Dosing Weight Start Date: 06/16/21 Status: Ordered Start: 08-29-2010 take 1 tablet by maiad th once daily rosuvastatin (CRESTOR) 5 mg ORAL Tab 1 qd 0 o 08/29/2010 Active Comment on above: 1 qd traZODone hydrochloride 50 mg oral tablet (20 sources) Serotonin Reuptake Inhibitor Start: 11-18-20 14 traZODone (DESYREL) 50 mg tablet Take 50 mg by mouth as needed. 10/03/2019 Active Comment on above: Take 50 mg by mouth. Take 50 mg by mouth as needed. valbenazine 40 mg oral capsule (6 sources) Start: 02-28-20 End: 02-28-20 take 1 capsule by mouth once daily valbenazine (INGREZZA) 40 mg capsule Take 1 capsule by mouth once daily. 30 capsule 11 02/27/2025 02/27/2026 Active 24 hr venlafaxine 75 mg extended release oral capsule (1 source) Serotonin and Norepinephrine Reuptake Inhibitor Start: 11-02-20 Effexor XR 75 mg oral capsule, extended release Dose : 75 mg = 1 cap(s), Oral, qDay, 0 Refill(s) Start Date: 11/02/22 Status: Ordered Vitamin B12 500 mcg oral tablet (4 sources) Start: 11-02-20 Vitamin B12 500 mcg oral tablet Dose : 500 mcg = 1 tab(s), Oral, qDay, # 30 tab(s), 0 Refill(s) Start Date: 11/02/23 Status: Ordered Vitamin C 500 mg oral tablet (2 sources) Start: 03-22-20 Vitamin C 500 mg oral tablet Dose : 500 mg = 1 tab(s), Oral, qDay, # 30 tab(s), 0 Refill(s) Start Date: 03/22/24 Status: Ordered vortioxetine 10 mg oral tablet (2 sources) Start: 08-01-20 Trintellix 10 mg oral tablet Dose : 10 mg = 1 tab(s), Oral, qDay, # 30 tab(s), 0 Refill(s) Start Date: 08/01/21 Status: Ordered Completed/Discontinued Medications Medication Drug Class(es) Dates Sig (Normalized) Sig (Original) [id number] 200 actuat albuterol 0.09 mg/actuat metered dose inhaler (17 sources) beta2-Adrenergic Agonist Start: 12-13-2024 End: 12-13-2024 take 4 puff(s) by inhalation once 4 puff, Inhalation, Once, On Wed12/13/24 at 1415, For 1 dose Start: 09-09-2024 Albuterol Sulf ate 90 mcg/actuation HFA aerosol inhaler Active 1 NMA INHALATION EVERY 6 HOURS as needed for shortness of breath or wheezing 8.5 September 09, 2024 12:00am Start: 02-21-2024 albuterol sulf ate 90 mcg/actuation aebs 02/21/2024 Active amLODIPine 5 mg / olmesartan medoxomil 20 mg oral tablet (18 sources) Dihydropyridine Calcium Channel Tomeka, Angiotensin 2 Receptor Tomeka Start: 11-18-2014 End: 09-28-2023 Amlodipine-Olmesartan (Joaquín) 1 UDTAB tablet Discontinued 0.5 NMA PO EVERY OTHER DAY November 18, 2014 1:00am September 29, 2023 12:35am Start: 04-03-2010 End: 06-23-2022 amlodipine bes/olmesartan me d(JOAQUÍN 5 MG-20 MG TAB) Take 1/2 tablet daily 0 04/03/2010 06/23/2022 Discontinued (Other) Comment on above: Take 1/2 tablet edil y amoxicillin 875 mg / clavulanate 125 mg oral tablet (8 sources) Penicillin-class Antibacterial Start: 11-27-2024 End: 12-07-2024 Amoxicillin-Pot Clavulanate 875-125 mg tablet Discontinued 1 {tbl} PO TWICE A DAY 20 November 27, 2024 1:00am December 06, 2024 1:00am December 07, 2024 1:12am Start: 06-28-2024 End: 07-05-2024 Amoxicillin-Pot Clavulanate 875-125 mg tablet Discontinued 1 {tbl} PO TWICE A DAY 14 June 28, 2024 12:00am July 05, 2024 4:10pm ascorbic acid 500 mg oral tablet (18 sources) Vitamin C Start: 08-01-2024 End: 11-23-2024 Ascorbic Acid (Vitamin C) 50 0 mg tablet Discontinued 125 mg PO 1000 August 01, 2024 3:34pm November 23, 2024 3:26pm Start: 03-13-2024 End: 02-27-2025 Ascorbic Acid (Vitamin C) 50 0 mg Tablet Discontinued 500 mg PO 1000 30 March 13, 2024 12:00am August 01, 2024 3:35pm aspirin 81 mg delayed release oral tablet (20 sources) Platelet Aggregation Inhibitor, Nonsteroidal Anti-inflammatory Drug Start: 09-28-2023 End: 09-30-2023 take 1 tablet by mouth every other day Aspirin 81 mg tablet,delayed release (DR/EC) Active 81 mg PO .COMPLEX October 01, 2023 1:00am 81 mg orally EVERY OTHER DAY; Start: 09-28-2023 End: 10-01-2023 take 1 tablet by mouth once daily Aspirin 81 mg tablet,delayed release (DR/EC) Discontinued 81 mg PO 1 time daily September 30, 2023 12:54pm October 01, 2023 4:16pm Start: 01-08-2023 End: 04-08-2023 aspirin 81 mg oral delayed r elease tablet Dose : 81 mg = 1 tab(s), Oral, Every other day, # 45 tab(s), 0 Refill(s), Pharmacy: [facility]/pharmacy #[id number], 172.7, cm, 12/08/22 14:58:00 EST, Height, kg, 12/08/22 14:58:00 EST, Dosing Weight Start Date: 01/08/23 Stop Date: 04/08/23 Status: Ordered Start: 12-11-2022 aspirin 81 mg oral delayed release tablet Dose : 81 mg = 1 tab(s), Oral, Every other day, # 15 tab(s), 5 Refill(s), Pharmacy: [facility]/pharmacy #[id number], 172.7, cm, 12/08/22 14:58:00 EST, Height, kg, 12/08/22 14:58:00 EST, Dosing Weight Start Date: 12/11/22 Status: Ordered Start: 12-05-2021 End: 11-30-2022 aspirin 81 mg oral delayed r elease tablet Dose : 81 mg = 1 tab(s), Oral, Every other day, # 90 tab(s), 3 Refill(s), Pharmacy: [facility]/pharmacy #[id number], 162, cm, 11/22/21 4:04:00 EST, Height, kg, 11/22/21 4:04:00 EST, Dosing Weight Start Date: 12/05/21 Stop Date: 11/30/22 Status: Ordered Start: 12-05-2021 End: 11-30-2022 aspirin 81 mg oral delayed r elease tablet Dose : 81 mg = 1 tab(s), Oral, qDay, # 90 tab(s), 3 Refill(s), Pharmacy: [facility]/pharmacy #[id number], 162, cm, 11/22/21 4:04:00 EST, Height, kg, 11/22/21 4:04:00 EST, Dosing Weight Start Date: 12/05/21 Stop Date: 11/30/22 Status: Ordered Start: 02-18-2018 aspirin 81 mg oral delayed release tablet Dose : 81 mg = 1 tab(s), Oral, qDay, 0 Refill(s) Start Date: 02/18/18 Status: Ordered take 81 mg by mouth every other day BABY ASPIRIN ORAL Take 81 mg by mouth every other day. Active Comment on above: Take 81 mg by mouth. Take 81 mg by mouth every other day. atorvastatin 40 mg oral tablet (12 sources) HMG-CoA Reductase Inhibitor Start: 10-07-20 End: 02-21-20 take 1 tablet by mouth at bedtime Atorvastatin 40 mg tablet Discontinued 40 mg PO AT BEDTIME October 07, 2023 1:00am February 21, 2024 6:40pm bisacodyl 5 mg delayed release oral tablet (6 sources) Stimulant Laxative Start: 02-29-20 End: 03-13-20 take 1 tablet by mouth twice daily Bisacodyl 5 mg Tablet,Delayed Release (Dr/Ec) Discontinued 5 mg PO TWICE A DAY February 29, 2024 12:00am March 13, 2024 5:50pm Hold if more than 1 bowel movement per day budesonide 3 mg delayed release oral capsule (13 sources) Corticosteroid Start: 02-29-20 End: 06-09-20 take 3 capsules by mouth once daily Budesonide 3 mg Capsule,Delayed,Ext end.Release Discontinued 9 mg PO DAILY March 13, 2024 12:00am May 23, 2024 8:41am Start: 02-29-2024 End: 03-13-2024 take 9 mg by mouth once daily Budesonide Active 9 MG P O DAILY March 13, 2024 12:00am calcium carbonate 1500 mg / cholecalciferol 0.01 mg oral tablet (8 sources) Vitamin D Start: 02-21-2024 take 1 tablet by mouth twice daily Calcium Carbonate-Vitamin D3 Active 1 TABLET PO TWICE A DAY February 21, 2024 12:00am Start: 12-28-2023 End: 06-25-2024 Calcium Carbonate-Vitamin D3 600 mg-10 mcg (400 unit) tablet Discontinued 1 {tbl} PO TWICE A DAY February 21, 2024 12:00am May 23, 2024 8:41am carbidopa 25 mg / levodopa 100 mg oral tablet (18 sources) Aromatic Amino Acid Decarboxylation Inhibitor, Aromatic Amino Acid Start: 07-02-2022 End: 10-20-2023 carbidopa-levodopa (SINEMET 25-100) 25-100 mg per tablet START WITH 0.5 TABLET 3 TIMES A DAY. AFTER 7 DAYS INCREASE TO 1 TABLET 3 TIMES A DAY. AFTER 7 MORE DAYS INCREASE TO 1.5 TABLET 3 TIMES A DAY AND CONTINUE ON THAT DOSE. TAKE WITH MEALS AND AVOID TAKING WITH IRON SUPPLEMENTS 135 tablet 5 07/21/2023 10/20/2023 Discontinued Comment on above: Take 1.5 tablets by mouth three times daily. Start with 0.5 tablet 3 times a day. After 7 days increase to 1 tablet 3 times a day. After 7 more days increase to 1.5 tablet 3 times a day and continue on that dose. Take with meals and avoid taking with iron supplements START WITH 0.5 TABLE T 3 TIMES A DAY. AFTER 7 DAYS INCREASE TO 1 TABLET 3 TIMES A DAY. AFTER 7 MORE DAYS INCREASE TO 1.5 TABLET 3 TIMES A DAY AND CONTINUE ON THAT DOSE. TAKE WITH MEALS AND AVOID TAKING WITH IRON SUPPLEMENTS citalopram 20 mg oral tablet (18 sources) Serotonin Reuptake Inhibitor Start: 11-18-2014 End: 03-13-2024 take 1 tablet by mouth at bedtime Citalopram 20 MG tablet Discontinued 20 mg PO AT BEDTIME November 18, 2014 1:00am March 13, 2024 5:51pm Comment on above: Take 1 tablet by maida once daily. dicyclomine hydrochloride 10 mg oral capsule (20 sources) Anticholinergic Start: 05-10-2024 End: 02-27-2025 take 2 capsules by mouth twice daily dicyclomine (BENTYL) 10 mg capsule Take 20 mg by mouth two times a day. 05/10/2024 02/27/2025 Discontinued Start: 03-22-2024 End: 04-21-2024 dicyclomine 10 mg oral capsu le Dose : 20 mg = 2 cap(s), Oral, BID, PRN abd cramping, 30 to 60 minutes before meals, # 60 cap(s), 5 Refill(s), Pharmacy: [facility]acy #[id number], 172.7, cm, 03/22/24 13:19:00 EDT, Height, kg, 03/22/24 13:19:00 EDT, Dosing Weight Start Date: 04/18/24 Status: Ordered Start: 02-29-2024 End: 01-18-2025 take 2 capsules by mouth three times daily before mealtime Dicyclomine 10 mg Capsule Discontinued 20 mg PO THREE TIMES DAILY BEFORE MEALS 180 March 13, 2024 12:00am May 23, 2024 8:56am Start: 02-29-2024 End: 03-13-2024 take 20 mg by mouth three times daily before mealtime Dicyclomine Active 20 MG PO THREE TIMES DAILY BEFORE MEALS 180 March 13, 2024 12:00am empagliflozin 10 mg oral tablet (20 sources) Sodium-Glucose Cotransporter 2 Inhibitor Start: 06-13-2024 End: 08-01-2024 take 1 tablet by mouth twice daily Empagliflozin (Jardiance) 10 mg tablet Discontinued 5 mg PO TWICE A DAY June 13, 2024 1:48pm August 01, 2024 3:34pm Start: 02-23-2022 End: 02-27-2025 take 1 tablet by mouth once daily Empagliflozin (Jardiance) 10 mg tablet Discontinued 5 mg PO daily August 01, 2024 3:32pm January 18, 2025 2:30pm 0.4 ml enoxaparin sodium 100 mg/ml prefilled syringe (12 sources) Low Molecular Weight Heparin Start: 10-07-2023 End: 02-21-2024 Enoxaparin 40 mg/0.4 mL syringe Discontinued 40 mg SC 0600 October 07, 2023 1:00am February 21, 2024 6:39pm ergocalciferol 1.25 mg oral capsule (14 sources) Provitamin D2 Compound Start: 11-18-2014 End: 09-28-2023 Ergocalciferol (Vitamin D2) (Vitamin D2) 50,000 UNIT capsule Discontinued 2000 [iU] PO AT BEDTIME November 18, 2014 1:00am September 29, 2023 12:38am Start: 11-18-2014 End: 11-07-2023 take 1 capsule by mouth at bedtime Ergocalciferol (Vitamin D2) (Vitamin D2) 50,000 UNIT capsule Discontinued 2000 IU PO AT BEDTIME November 18, 2014 1:00am September 29, 2023 12:38am glipiZIDE 2.5 mg / metFORMIN hydrochloride 250 mg oral tablet (17 sources) Biguanide, Sulfonylurea End: 10-20-2023 take 1 tablet by mouth twice daily before mealtime glipiZIDE-metFORMIN (METAGLIP) 2.5-250 mg tablet Take 1 tablet by mouth twice daily before meals. 0 10/20/2023 Discontinued Comment on above: Take 1 tablet by maida th twice daily before meals. ibuprofen 200 mg oral tablet (4 sources) Nonsteroidal Anti-inflammatory Drug Start: 04-03-2010 End: 06-23-2022 IBUPROFEN 200 MG TAB as necessary 0 04/03/2010 06/23/2022 Discontinued (Other) Comment on above: as necessary Iron (15 sources) End: 10-20-2023 Iron 18 mg tab Take by mouth. 0 10/20/2023 Discontinued Iron 18 mg tab T quin by mouth. 0 Active Comment on above: Take by mouth. loratadine 10 mg oral tablet (8 sources) Start: 06-13-2024 End: 11-23-2024 take 1 tablet by mouth once daily Loratadine (Claritin) 10 mg tablet Discontinued 10 mg PO DAILY June 13, 2024 12:00am November 23, 2024 3:27pm Start: 03-22-2024 Claritin 10 mg oral tablet Dose : 10 mg = 1 tab(s), Oral, qDay, # 90 tab(s), 0 Refill(s) Start Date: 03/22/24 Status: Ordered Start: 11-02-2023 Claritin 5 mg oral tablet, chewable Dose : 5 mg = 1 tab(s), Chewed, qDay, # 30 tab(s), 0 Refill(s) Start Date: 11/02/23 Status: Ordered melatonin 10 mg oral tablet (8 sources) Start: 06-13-2024 End: 11-23-2024 take 5 mg by mouth at bedtime Melatonin 10 mg tablet Discontinued 5 mg PO BEDTIME June 13, 2024 12:00am November 23, 2024 3:24pm Start: 11-02-2023 melatonin 10 m g oral tablet, chewable Dose : 5 mg = 0.5 tab(s), Chewed, qHS, # 90 tab(s), 0 Refill(s) Start Date: 11/02/23 Status: Ordered 24 hr metoprolol succinate 25 mg extended release oral tablet (20 sources) beta-Adrenergic Tomeka Start: 09-28-2023 End: 11-23-2024 take 2 tablets by mouth once daily Metoprolol Succinate 25 mg tablet extended release 24 hr Discontinued 12.5 mg PO DAILY September 28, 2023 1:00am November 23, 2024 3:25pm On Hold: Order Changed Start: 09-28-2023 take 12.5 mg by mouth once casper ly Metoprolol Succinate Active 12.5 MG PO DAILY September 28, 2023 1:00am Start: 05-18-2023 take 1 tablet by maida th once daily metoprolol succinate ER (TOPROL XL) 25 mg 24 hr tablet Take 25 mg by mouth once daily. 05/18/2023 Active Start: 10-30-2022 metoprolol suc cinate 25 mg oral TABLET extended release Dose : 12.5 mg = 0.5 tab(s), Oral, qDay, Do not crush or chew (controlled release), # 15 tab(s), 6 Refill(s), Pharmacy: [facility]/pharmacy #[id number], 172.7, cm, 10/30/22 10:04:00 EST, Height Start Date: 10/30/22 Status: Ordered Start: 02-12-2022 End: 03-14-2022 Toprol-XL 25 mg oral tablet, extended release Dose : 25 mg = 1 tab(s), Oral, qDay, # 90 tab(s), 1 Refill(s), Pharmacy: [facility], 172.7, cm, 12/30/21 10:10:00 EST, Height, kg, 02/12/22 11:01:00 EDT, Dosing Weight Start Date: 02/12/22 Stop Date: 03/14/22 Status: Ordered Start: 02-04-2022 End: 03-06-2022 Toprol-XL 25 mg oral tablet, extended release Dose : 25 mg = 1 tab(s), Oral, qDay, # 30 tab(s), 0 Refill(s), Pharmacy: [facility]/pharmacy #[id number], 172.7, cm, 12/30/21 10:10:00 EST, Height, kg, 12/30/21 10:10:00 EST, Dosing Weight Start Date: 02/04/22 Stop Date: 03/06/22 Status: Ordered Start: 12-05-2021 End: 02-03-2022 Toprol-XL 25 mg oral tablet, extended release Dose : 25 mg = 1 tab(s), Oral, qDay, # 30 tab(s), 1 Refill(s), Pharmacy: [facility]/pharmacy #[id number], 162, cm, 11/22/21 4:04:00 EST, Height, kg, 11/22/21 4:04:00 EST, Dosing Weight Start Date: 12/05/21 Stop Date: 02/03/22 Status: Ordered Multivitamin tablet (4 sources) Start: 06-13-2024 End: 11-23-2024 Multivitamin tablet Discontinued 2 {tbl} PO DAILY June 13, 2024 12:00am November 23, 2024 3:27pm Multivitamin With Folic Acid (Thera) 1 TABLET tablet (14 sources) Start: 11-18-2014 End: 06-13-2024 take 1 tablet by mouth once daily Multivitamin With Folic Acid (Thera) 1 TABLET tablet Discontinued 1 {tbl} PO DAILY November 18, 2014 1:00am June 13, 2024 1:55pm Start: 11-18-2014 take 1 tablet by maida th once daily Multivitamin With Folic Acid (Thera) 1 TABLET tablet Active 1 TABLET PO DAILY November 18, 2014 1:00am Start: 11-18-2014 take 1 tablet by maida th once daily Multivitamin With Folic Acid (Thera) 1 TABLET tablet Active 1 TABLET PO DAILY November 18, 2014 12:00am Start: 11-18-2014 take 1 tablet by maida th at bedtime Multivitamin With Folic Acid (Thera) 1 TABLET tablet Active 1 TABLET PO AT BEDTIME November 18, 2014 12:00am omega-3 fatty acids/vitamin e(FISH OIL 1,000 MG CAP) (4 sources) Start: 12-13-2009 End: 06-23-2022 omega-3 fatty acids/vitamin e(FISH OIL 1,000 MG CAP) Take one(1) tablet daily. 0 0 12/13/2009 06/23/2022 Discontinued (Other) Start: 12-13-2009 omega-3 fatty acids/vitamin e(FISH OIL 1,000 MG CAP) Take one(1) tablet daily. 0 0 12/13/2009 Active Comment on above: Take one(1) tablet d ailmegan. ondansetron 4 mg disintegrating oral tablet (4 sources) Serotonin-3 Receptor Antagonist Start: 11-02-20 End: 11-28-19 take 1 tablet by mouth every eight hours as needed for nausea Ondansetron 4 mg tablet,disintegratin g Discontinued 4 mg PO EVERY 8 HOURS NEEDED as needed for Nausea November 02, 2024 1:00am November 28, 2024 3:06pm 24 hr oxybutynin chloride 5 mg extended release oral tablet (20 sources) Cholinergic Muscarinic Antagonist Start: 06-13-20 End: 11-23-19 take 1 tablet by mouth every other day Oxybutynin Chloride 5 mg tablet extended release 24hr Discontinued 5 mg PO every other day June 13, 2024 1:56pm November 23, 2024 3:27pm Start: 02-21-2024 End: 06-13-2024 take 1 tablet by mouth once daily Oxybutynin Chloride 5 mg tablet extended release 24hr Discontinued 5 mg PO DAILY February 21, 2024 12:00am June 13, 2024 1:57pm Start: 10-29-2023 take 1 tablet by maida th every hour, then take 1 tablet by mouth every other day oxybutynin 5 mg/24 hours oral tablet, extended release Dose : 5 mg = 1 tab(s), Oral, Every other day, # 90 tab(s), 1 Refill(s), Pharmacy: [facility]/pharmacy #[id number], 172.7, cm, 10/29/23 11:29:00 EST, Height, kg, 10/29/23 11:29:00 EST, Dosing Weight Start Date: 10/29/23 Status: Ordered Start: 10-29-2023 take 1 tablet by maida th every hour, then take 0.5 tablet by mouth once daily oxybutynin 5 mg/24 hours oral tablet, extended release Dose : 2.5 mg = 0.5 tab(s), Oral, qDay, # 90 tab(s), 1 Refill(s), Pharmacy: [facility]/pharmacy #[id number], 172.7, cm, 10/29/23 11:29:00 EST, Height, kg, 10/29/23 11:29:00 EST, Dosing Weight Start Date: 10/29/23 Status: Ordered Start: 09-28-2023 End: 10-07-2023 take 1 tablet by mouth once daily as needed Oxybutynin Chloride 5 mg tablet extended release 24hr Discontinued 5 mg PO DAILY as needed for water retention September 28, 2023 1:00am October 07, 2023 1:53pm Start: 06-15-2023 take 1 tablet by maida th every hour, then take 1 tablet by mouth once daily oxybutynin 5 mg/24 hours oral tablet, extended release Dose : 5 mg = 1 tab(s), Oral, qDay, # 90 tab(s), 0 Refill(s), Pharmacy: [facility]/pharmacy #[id number], 172.7, cm, 05/18/23 10:38:00 EDT, Height, kg, 05/18/23 10:38:00 EDT, Dosing Weight Start Date: 06/15/23 Status: Ordered Start: 02-12-2022 take 1 tablet by maida th every hour, then take 1 tablet by mouth once daily oxybutynin 5 mg/24 hours oral tablet, extended release Dose : 5 mg = 1 tab(s), Oral, qDay, stop as of 11/27/22, # 90 tab(s), 1 Refill(s), Pharmacy: [facility], 172.7, cm, 12/30/21 10:10:00 EST, Height, kg, 02/12/22 11:01:00 EDT, Dosing Weight Start Date: 02/12/22 Status: Ordered Start: 02-04-2022 take 1 tablet by maida th every hour, then take 1 tablet by mouth once daily oxybutynin 5 mg/24 hours oral tablet, extended release Dose : 5 mg = 1 tab(s), Oral, qDay, # 30 tab(s), 0 Refill(s), Pharmacy: [facility]/pharmacy #[id number], 172.7, cm, 12/30/21 10:10:00 EST, Height, kg, 12/30/21 10:10:00 EST, Dosing Weight Start Date: 02/04/22 Status: Ordered Start: 02-13-2021 take 1 tablet by maida th every hour, then take 1 tablet by mouth once daily oxybutynin 5 mg/24 hours oral tablet, extended release Dose : 5 mg = 1 tab(s), Oral, qDay, # 90 tab(s), 3 Refill(s), Pharmacy: [facility], 171, cm, 12/11/20 15:33:00 EST, Height, kg, 02/11/21 13:50:00 EDT, Dosing Weight Start Date: 02/13/21 Status: Ordered End: 02-27-2025 take 5 mg by mouth every other day oxybutynin (DITROPAN) 5 mg/5 mL syrup Take 5 mg by mouth every other day. 02/27/2025 Discontinued take 5 mg by mouth twice daily o xybutynin (DITROPAN) 5 mg/5 mL syrup Take 5 mg by mouth twice daily. 0 Active Comment on above: Take 5 mg by mouth t wice daily. Take 5 mg by mouth e very other day. polysaccharide iron complex 150 mg oral capsule (7 sources) Start: 03-13-20 End: 05-23-20 Polysaccharide Iron Complex (Ferrex 150) 150 mg iron Capsule Discontinued 150 mg PO DAILY March 13, 2024 12:00am May 23, 2024 8:42am microencapsulated potassium chloride 20 meq extended release oral tablet (6 sources) Start: 03-13-20 End: 05-23-20 take 1 tablet by mouth twice daily at mealtime Potassium Chloride 20 mEq Tablet,Er Particles/Crystals Discontinued 20 meq PO TWICE DAILY WITH MEALS 60 March 13, 2024 12:00am May 23, 2024 8:42am Start: 02-17-2022 potassium chlo ride 20 mEq oral tablet, extended release Dose : 20 mEq = 1 tab(s), Oral, qDay, Take with food, # 30 tab(s), 6 Refill(s), Pharmacy: [facility]/pharmacy #[id number], 172.7, cm, 02/17/22 15:57:00 EDT, Height, kg, 02/17/22 15:57:00 EDT, Dosing Weight Start Date: 02/17/22 Status: Ordered predniSONE 50 mg oral tablet (4 sources) Start: 11-27-2022 End: 12-02-2022 predniSONE 50 mg oral tablet Dose : 25 mg = 0.5 tab(s), Oral, qDayM, # 2.5 tab(s), 0 Refill(s), Pharmacy: [facility]/pharmacy #[id number], 172.7, cm, 11/27/22 14:14:00 EST, Height Start Date: 11/27/22 Stop Date: 12/02/22 Status: Ordered prochlorperazine 5 mg oral tablet (15 sources) Phenothiazine Start: 03-22-2024 End: 02-27-2025 take 1 tablet by mouth every eight hours as needed prochlorperazine (COMPAZINE) 5 mg tablet Take 5 mg by mouth every 8 hours as needed for nausea/vomiting. 04/05/2024 02/27/2025 Discontinued Start: 03-13-2024 End: 01-23-2025 take 2 tablets by mouth every four hours as needed for nausea Prochlorperazine Maleate 5 mg Tablet Discontinued 10 mg PO EVERY 4 HOURS NEEDED as needed for Nausea/Vomiting 120 March 13, 2024 12:00am January 23, 2025 2:15pm Start: 03-13-2024 take 10 mg by mouth every four hours as needed Prochlorperazine Maleate Active 10 MG PO EVERY 4 HOURS NEEDED 120 March 13, 2024 12:00am sacubitril 24 mg / valsartan 26 mg oral tablet (20 sources) Angiotensin 2 Receptor Tomeka Start: 09-28-2023 End: 02-21-2024 sacubitril-valsartan Discontinued 0.5 {tbl} PO TWICE A DAY September 28, 2023 1:00am February 21, 2024 2:33pm Start: 09-28-2023 End: 02-21-2024 take 0.5 tablet by mouth twice daily sacubitril-valsartan Discontinued 0.5 TABLET PO TWICE A DAY September 28, 2023 1:00am February 21, 2024 2:33pm Start: 09-28-2023 take 0.5 tablet by m outh twice daily sacubitril-valsartan Active 0.5 TABLET PO TWICE A DAY September 28, 2023 1:00am Start: 09-28-2023 take 0.5 tablet by m outh twice daily sacubitril-valsartan Active 0.5 TABLET PO TWICE A DAY September 28, 2023 12:00am Start: 03-12-2022 End: 02-27-2025 Sacubitril-Valsartan (Entres to) 24-26 mg tablet Discontinued 0.5 {tbl} PO TWICE A DAY February 21, 2024 12:00am January 18, 2025 2:30pm On Hold: Resume on 07/26/24. Hold unless otherwise advised by your outpatient physician Comment on above: Take 1 tablet by maida twice daily. spironolactone 25 mg oral tablet (20 sources) Aldosterone Antagonist Start: 10-07-2023 Spironolactone Active 12.5 MG PO MOWEFR October 07, 2023 1:00am Start: 09-28-2023 End: 10-07-2023 spironolactone Discontinued 0.5 {tbl} PO MOWEFR September 28, 2023 1:00am October 07, 2023 1:53pm Start: 09-28-2023 End: 10-07-2023 spironolactone Discontinued 0.5 TABLET PO MOSeptember 28, 2023 1:00am October 07, 2023 1:53pm Start: 09-28-2023 End: 10-07-2023 spironolactone Discontinued 0.5 TABLET PO MOFR September 28, 2023 12:00am October 07, 2023 12:53pm Start: 09-28-2023 spironolactone Active 0.5 TABLET PO MOWEFR September 28, 2023 12:00am Start: 02-01-2023 spironolactone 25 mg oral tablet Dose : 12.5 mg = 0.5 tab(s), Oral, Every other day, # 7.5 tab(s), 3 Refill(s), Pharmacy: [facility]/pharmacy #[id number], 172.7, cm, 05/18/23 10:38:00 EDT, Height, kg, 05/18/23 10:38:00 EDT, Dosing Weight Start Date: 05/18/23 Status: Ordered Start: 04-13-2022 spironolactone 25 mg oral tablet Dose : 12.5 mg = 0.5 tab(s), Oral, Wed/Wed/Wed, # 30 tab(s), 3 Refill(s), Pharmacy: [id number], 172.7, cm, 03/20/22 8:38:00 EDT, Height, kg, 03/20/22 8:38:00 EDT, Dosing Weight Start Date: 04/13/22 Status: Ordered Start: 12-25-2021 End: 02-27-2025 Spironolactone 25 mg tablet Discontinued 12.5 mg PO .COMPLEX October 07, 2023 1:00am January 18, 2025 2:30pm On Hold: Resume on 07/26/24. Hold unless otherwise advised by your outpatient physician 12.5 mg orally every other day; Start: 12-25-2021 take 1 tablet by maida th once daily Aldactone 25 mg oral tablet See Instructions, 1 tab(s) Oral qDay wed,wed,wed, # 15 tab(s), 3 Refill(s), Pharmacy: [facility]/pharmacy #[id number], 172.7, cm, 12/24/21 2:11:00 EST, Height, kg, 12/24/21 2:11:00 EST, Dosing Weight Start Date: 12/25/21 Status: Ordered Comment on above: 12.5 mg. 12.5 mg every other day. vancomycin 25 mg/ml oral solution (6 sources) Glycopeptide Antibacterial Start: 02-29-20 End: 03-13-20 Vancomycin (Firvanq) 25 mg/mL Recon Soln Discontinued 125 mg PO EVERY 6 HOURS 200 10 February 29, 2024 12:00am March 13, 2024 5:52pm vitamin B12 (19 sources) Vitamin B12 Start: 06-13-20 End: 01-18-20 take 1 tablet by mouth once daily Cyanocobalamin (Vitamin B-12) 500 mcg tablet Discontinued 500 ug PO DAILY June 13, 2024 12:00am January 18, 2025 2:30pm Start: 07-29-2023 End: 02-27-2025 take 1 tablet by mouth once daily cyanocobalamin (VITAMIN B-12) 500 mcg tablet Take 1 tablet by mouth once daily. 07/29/2023 02/27/2025 Discontinued Start: 07-29-2023 Vitamin B12 Se e Instructions, 0 Refill(s) Start Date: 07/29/23 Status: Ordered vitamin X48-emvig acid (14 sources) Start: 09-28-2023 End: 10-07-2023 vitamin M37-gcmqy acid Disco ntinued 1 {tbl} PO DAILY September 28, 2023 1:00am October 07, 2023 1:56pm Start: 09-28-2023 End: 10-07-2023 take 1 tablet by mouth once daily vitamin F04-lgpra acid Discontinued 1 TABLET PO DAILY September 28, 2023 1:00am October 07, 2023 1:56pm Start: 09-28-2023 End: 10-07-2023 take 1 tablet by mouth once daily vitamin F76-nhuil acid Discontinued 1 TABLET PO DAILY September 28, 2023 12:00am October 07, 2023 12:56pm Start: 09-28-2023 take 1 tablet by maida th once daily vitamin I05-dpddg acid Active 1 TABLET PO DAILY September 28, 2023 12:00am Start: 09-28-2023 vitamin B12-fo lic acid Active PO September 28, 2023 12:00am Problems Active Problems Problem Classification Problem Date Documented Date Episodic/Chronic Abdominal pain (20 sources) Inguinal pain; Translations: [Chronic abdominal pain] Onset: 3 08-27-2023 Episodic Comment on above: over bladder area Acute and unspecified renal failure (6 sources) Acute renal failure syndrome; Translations: [Acute kidney failure, unspecified] 02-29-2024 Episodic Acute cerebrovascular disease (20 sources) Cerebrovascular accident; Translations: [Cerebral infarction] Onset: 2 12-15-2015 Chronic Comment on above: 2008 Acute myocardial infarction (1 source) Non-ST elevation (NSTEMI) myocardial infarction; Translations: [Non-ST elevation (NSTEMI) myocardial infarction] Onset: 2 Chronic Anxiety disorders (20 sources) Anxiety; Translations: [Generalized anxiety disorder] Onset: 2 07-11-2019 Chronic Cardiac and circulatory congenital anomalies (16 sources) Patent foramen ovale; Translations: [Patent foramen ovale] 05-19-2016 Chronic Chronic kidney disease (20 sources) Chronic kidney disease stage 3; Translations: [Chronic kidney disease, stage 3 (moderate)] Onset: 2 12-30-2019 Chronic Chronic kidney disease (2 sources) Chronic kidney disease; Translations: [Chronic kidney disease, stage 3a (HCC)] Onset: 4 Conduction disorders (20 sources) Left bundle branch block; Translations: [Cardiac pacemaker in situ] Onset: 4 05-01-2022 Chronic Comment on above: 05/12/2022 Congestive heart failure; nonhypertensive (20 sources) Acute combined systolic and diastolic heart failure; Translations: [Acute combined systolic (congestive) and diastolic (congestive) heart failure] Onset: 2 Chronic Coronary atherosclerosis and other heart disease (20 sources) Calcification of coronary artery; Translations: [Coronary arteriosclerosis] Onset: 4 10-01-2020 Chronic Coronary atherosclerosis and other heart disease (4 sources) Stented coronary artery; Translations: [Presence of coronary angioplasty implant and graft] 06-13-2024 Episodic Deficiency and other anemia (2 sources) Iron deficiency anemia secondary to blood loss (chronic); Translations: [Iron deficiency anemia secondary to blood loss (chronic)] Onset: 5 Chronic Deficiency and other anemia (13 sources) Anemia; Translations: [Anemia, unspecified] Onset: 2 Episodic Deficiency and other anemia (2 sources) Chronic anemia; Translations: [Anemia, unspecified] 04-19-2025 Episodic Deficiency and other anemia (1 source) Iron deficiency anemia, unspecified; Translations: [Iron deficiency anemia, unspecified] Onset: 5 Episodic Diabetes mellitus with complications (20 sources) Chronic kidney disease stage 3 due to type 2 diabetes mellitus; Translations: [Disorder of kidney due to diabetes mellitus] 02-11-2021 Chronic Diabetes mellitus without complication (20 sources) Diabetes mellitus; Translations: [Type 2 diabetes mellitus without complication] Onset: 2 07-11-2019 Chronic Diseases of mouth; excluding dental (4 sources) Xerostomia 12-16-2023 Episodic Disorders of lipid metabolism (20 sources) Hyperlipidemia; Translations: [Hyperlipidemia, unspecified] Onset: 2 07-11-2019 Chronic Disorders of teeth and jaw (10 sources) Dental caries 07-29-2023 Episodic Diverticulosis and diverticulitis (20 sources) Diverticular disease of left side of colon 04-27-2018 Chronic Esophageal disorders (20 sources) Gastroesophageal reflux disease; Translations: [Gastroesophageal reflux disease without esophagitis] Onset: 2 06-08-2019 Chronic Essential hypertension (20 sources) Hypertensive disorder; Translations: [Essential hypertension] Onset: 2 07-11-2019 Chronic Fluid and electrolyte disorders (3 sources) Hyperosmolality with hypernatremia; Translations: [Hyperosmolality and hypernatremia] Episodic Gastroduodenal ulcer (except hemorrhage) (20 sources) Ulcer of duodenum 09-06-2019 Chronic Gastrointestinal hemorrhage (20 sources) Peptic ulcer with hemorrhage 07-11-2019 Chronic Gastrointestinal hemorrhage (20 sources) Lower gastrointestinal hemorrhage; Translations: [Gastrointestinal hemorrhage, unspecified] Onset: 4 02-21-2024 Episodic Genitourinary symptoms and ill-defined conditions (20 sources) Urge incontinence of urine 10-01-2020 Chronic Genitourinary symptoms and ill-defined conditions (12 sources) Microscopic hematuria 04-29-2023 Episodic Heart valve disorders (1 source) Non-rheumatic mitral regurgitation ; Translations: [Nonrheumatic mitral (valve) insufficiency] Onset: 2 Chronic Hypertension with complications and secondary hypertension (20 sources) Hypertensive heart disease with congestive heart failure; Translations: [Hypertensive heart failure] 04-29-2023 Chronic Intestinal infection (6 sources) Clostridium difficile colitis; Translations: [Enterocolitis due to Clostridium difficile, not specified as recurrent] 02-29-2024 Episodic Malaise and fatigue (20 sources) Asthenia; Translations: [Weakness] Onset: 2 Episodic Mood disorders (20 sources) Seasonal affective disorder; Translations: [Severe major depression] 11-02-2022 Chronic Nutritional deficiencies (20 sources) Vitamin D deficiency; Translations: [Vitamin D deficiency, unspecified] 10-03-2019 Chronic Occlusion or stenosis of precerebral arteries (1 source) Occlusion and stenosis of bilateral carotid arteries; Translations: [Occlusion and stenosis of bilateral carotid arteries] Onset: 5 Chronic Other aftercare (1 source) Long-term current use of oral 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 medication; Translations: [half-way (current) use of oral 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 drugs] Episodic Other aftercare (2 sources) Post-discharge follow-up 03-22-2024 Episodic Other and ill-defined cerebrovascular disease (20 sources) Cerebrovascular disease; Translations: [Other cerebrovascular disease] Onset: 9 08-14-2009 Chronic Other and ill-defined cerebrovascular disease (5 sources) Cerebrovascular disease, unspecified; Translations: [Unspecified cerebrovascular disease] 10-01-2023 Chronic Other circulatory disease (14 sources) History of cerebrovascular accident; Translations: [Personal history of transient ischemic attack (TIA), and cerebral infarction without residual deficits] Episodic Other circulatory disease (4 sources) Orthostatic hypotension 12-16-2023 Episodic Other connective tissue disease (10 sources) Polymyalgia rheumatica 07-29-2023 Chronic Other connective tissue disease (20 sources) Spasm; Translations: [Other muscle spasm] 07-18-2021 Episodic Other connective tissue disease (1 source) Pain in left arm; Translations: [Pain in left arm] Onset: Episodic Other connective tissue disease (1 source) Nocturnal muscle cramp; Translations: [Cramp and spasm] Episodic Other connective tissue disease (2 sources) Spasticity; Translations: [Cramp and spasm] Episodic Other connective tissue disease (12 sources) Muscle pain 04-29-2023 Episodic Other connective tissue disease (5 sources) Other muscle spasm; Translations: [Spasm of muscle] 10-07-2023 Episodic Other connective tissue disease (5 sources) Cramp in lower limb; Translations: [Cramp and spasm] 02-29-2024 Episodic Other connective tissue disease (1 source) Cramp and spasm; Translations: [Cramp of limb] 03-15-2024 Episodic Other diseases of bladder and urethra (12 sources) Overactive bladder; Translations: [Overactive bladder] 10-01-2023 Chronic Other diseases of bladder and urethra (5 sources) Overactive bladder; Translations: [Hypertonicity of bladder] 10-07-2023 Chronic Other endocrine disorders (12 sources) 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 Other gastrointestinal disorders (20 sources) Constipation; Translations: [Constipation, unspecified] 07-29-2023 Episodic Other gastrointestinal disorders (12 sources) Chronic constipation; Translations: [Other constipation] 02-13-2025 Episodic Other gastrointestinal disorders (4 sources) History of ischemic colitis; Translations: [Personal history of other diseases of the digestive system] 10-17-2024 Episodic Other gastrointestinal disorders (3 sources) Other constipation; Translations: [Other constipation] Onset: 4 Episodic Other hematologic conditions (20 sources) RBC count low 07-23-2022 Episodic Other hereditary and degenerative nervous system conditions (20 sources) 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 Chronic Other hereditary and degenerative nervous system conditions (20 sources) Intention tremor 10-03-2019 Chronic Other hereditary and degenerative nervous system conditions (7 sources) Essential tremor; Translations: [Essential tremor] 10-20-2023 Chronic Other hereditary and degenerative nervous system conditions (1 source) Essential tremor; Translations: [Essential tremor] Onset: 5 Chronic Other hereditary and degenerative nervous system conditions (7 sources) Tardive dyskinesia; Translations: [Drug induced subacute dyskinesia] 02-28-2025 Episodic Other hereditary and degenerative nervous system conditions (1 source) Drug induced subacute dyskinesia; Translations: [Dyskinesia, tardive] Onset: 5 Episodic Other infections; including parasitic (12 sources) Infestation by bed bug 11-27-2022 Episodic Other injuries and conditions due to external causes (1 source) Encounter for examination and observation following other accident; Translations: [Encounter for examination and observation following other accident] Onset: 5 Episodic Other lower respiratory disease (20 sources) Multiple nodules of lung; Translations: [Other nonspecific abnormal finding of lung field] 04-17-2021 Episodic Other lower respiratory disease (8 sources) Cough; Translations: [Cough] 02-19-2024 Episodic Other lower respiratory disease (11 sources) Dyspnea; Translations: [Other forms of dyspnea] Onset: 5 12-13-2024 Episodic Other lower respiratory disease (1 source) Other forms of dyspnea; Translations: [Other forms of dyspnea] Onset: 5 Episodic Other nervous system disorders (2 sources) Parkinsonism due to drug; 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 Other nervous system disorders (4 sources) Finding of hand region; Translations: [Tremor, unspecified] Episodic Other nervous system disorders (17 sources) Tremor 11-02-2022 Episodic Other nervous system disorders (16 sources) Abnormal gait 11-27-2022 Episodic Other nervous system disorders (1 source) Other abnormalities of gait and mobility; Translations: [Other abnormalities of gait and mobility] Onset: 5 Episodic Other non-traumatic joint disorders (20 sources) Ankle pain 04-04-2020 Episodic Other nutritional; endocrine; and metabolic disorders (1 source) Disorder of protein metabolism; Translations: [Other disorders of plasma-protein metabolism, not elsewhere classified] Onset: 2 Chronic Other nutritional; endocrine; and metabolic disorders (17 sources) History of iron deficiency 11-02-2022 Episodic Paralysis (20 sources) Cerebral palsy; Translations: [Hemiparesis] Onset: 3 11-27-2022 Chronic Parkinson`s disease (20 sources) Parkinsonism; Translations: [Parkinson's disease] Onset: 2 Chronic Samantha-; endo-; and myocarditis; cardiomyopathy (except that caused by tuberculosis or sexually transmitted disease) (2 sources) Cardiomyopathy; Translations: [Cardiomyopathy, unspecified] Onset: 2 Chronic Peripheral and visceral atherosclerosis (20 sources) Peripheral vascular disease; Translations: [Atherosclerosis of aorta] Onset: 4 04-29-2023 Chronic Peripheral and visceral atherosclerosis (6 sources) Occlusion of superior mesenteric artery; Translations: [Acute infarction of intestine, part and extent unspecified] 09-14-2024 Episodic Residual codes; unclassified (16 sources) Chill 11-27-2022 Episodic Residual codes; unclassified (12 sources) Insomnia; Translations: [Insomnia, unspecified] 10-07-2023 Episodic Residual codes; unclassified (4 sources) Screening due 11-26-2023 Episodic Residual codes; unclassified (1 source) Insomnia, unspecified; Translations: [Insomnia, unspecified] 03-15-2024 Episodic Screening and history of mental health and substance abuse codes (20 sources) Tobacco use and exposure - finding 08-13-2020 Chronic Substance-related disorders (1 source) Nicotine dependence; Translations: [Nicotine dependence, cigarettes, uncomplicated] Chronic Superficial injury; contusion (4 sources) Contusion of hip; Translations: [Contusion of left hip, initial encounter] 03-10-2025 Episodic Transient cerebral ischemia (16 sources) Transient cerebral ischemia; Translations: [Transient cerebral ischemic attack, unspecified] 10-01-2023 Chronic Unclassified (20 sources) Drug therapy finding 10-03-2019 Unclassified (2 sources) Bite of bed bug (finding) 11-27-2022 Unclassified (20 sources) Patient encounter status 07-29-2023 Unclassified (4 sources) Medication refused 11-26-2023 Unclassified (2 sources) Body mass index 20-24 - normal 03-22-2024 Unclassified (4 sources) R10.9 - Unspecified abdominal pain Unclassified (4 sources) R10.2 - Pelvic and perineal pain Unclassified (1 source) Other low back pain; Translations: [Other low back pain] Onset: Past or Other Problems Problem Classification Problem Date Documented Date Episodic/Chronic Biliary tract disease (20 sources) Biliary calculus; Translations: [Calculus of gallbladder without cholecystitis without obstruction] Onset: 12-26-2014 12-26-2014 Episodic Conditions associated with dizziness or vertigo (20 sources) Peripheral vertigo; Translations: [Other peripheral vertigo, unspecified ear] Onset: 01-14-2010 01-14-2010 Episodic Deficiency and other anemia (2 sources) Anemia, unspecified; Translations: [Anemia, unspecified] Onset: 07-17-2024 Episodic Noninfectious gastroenteritis (16 sources) Colitis; Translations: [Noninfective gastroenteritis and colitis, unspecified] Onset: 07-12-2024 02-21-2024 Episodic Other and unspecified benign neoplasm (19 sources) History of polyp of colon; Translations: [Personal history of colonic polyps] Onset: 02-21-2015 Resolved: 02-21-2015 Episodic Other lower respiratory disease (1 source) Solitary pulmonary nodule; Translations: [Solitary pulmonary nodule] Onset: 07-21-2024 Episodic Other lower respiratory disease (1 source) Shortness of breath; Translations: [Shortness of breath] Onset: 10-03-2024 Episodic Other screening for suspected conditions (not mental disorders or infectious disease) (9 sources) Partial thromboplastin time increased; Translations: [Abnormal coagulation profile] Onset: 08-01-2024 08-01-2024 Episodic Pleurisy; pneumothorax; pulmonary collapse (1 source) Interstitial emphysema; Translations: [Interstitial emphysema] Onset: 08-13-2024 Episodic Syncope (7 sources) Syncope and collapse; Translations: [Syncope and collapse] Onset: 12-04-2024 11-28-2024 Episodic Results Test Name Value Interpretation Reference Range Facility Bedside Glucoseon 04-24-2025 FINGERSTICK GLU 142 mg/dL High [facility]106 [facility] Comment on above: Result Comment: TORRES GEMENT OF PATIENT CARE PER NURSING PROTOCOL Performed By: #### L 501.080 ####[facility] [address] [place], [address] Bedside Glucoseon 04-23-2025 FINGERSTICK GLU 166 mg/dL High [facility]106 [facility] Comment on above: Result Comment: TORRES GEMENT OF PATIENT CARE PER NURSING PROTOCOL Performed By: #### L 501.080 ####[facility] [address] [place], [address] FINGERSTICK GLU 197 mg/dL High [address] [place] [address] Comment on above: Result Comment: TORRES GEMENT OF PATIENT CARE PER NURSING PROTOCOL Performed By: #### L 501.080 ####[facility] [address] [place], [address] MR/PAT.ANEon 04-23-2025 MR/PAT.ANE Normal [facility] Bedside Glucoseon 04-22-2025 FINGERSTICK GLU 191 mg/dL High [facility]106 [facility] Comment on above: Result Comment: TORRES GEMENT OF PATIENT CARE PER NURSING PROTOCOL Performed By: #### L 501.080 ####[facility] [address] [place], [address] FINGERSTICK GLU 170 mg/dL High [facility]106 [facility] Comment on above: Result Comment: TORRES GEMENT OF PATIENT CARE PER NURSING PROTOCOL Performed By: #### L 501.080 ####[facility] [address] [place], [address] Hemoglobin A1con 04-22-2025 HbA1c (Bld) [Mass fraction] 7.6 % High <=5.6 [facility] Comment on above: Result Comment: Norm al < 5.7 % Prediabetic 5.7 - 6.4 % Diabetic >or= 6.5 % Please note range changes. Performed By: #### L 500.4100, L501.9985 ####[facility] [address] [place], [address] Lipid Profileon 04-22-2025 CHOL:HDL 3.76 Normal [facility] Comment on above: Performed By: #### L 500.4100, L5.9985 ####[facility] [address] [place], [address] Cholesterol [Mass/Vol] 88 mg/dL Normal <=200 [facility] Comment on above: Result Comment: Chol esterol level, Desirable <200 mg/dLBorderline high cholesterol 200-239 mg/dLHigh cholesterol >=240 mg/dLRecommendations of the NCEP Adult Treatment Panel for thefollowing risk-cutoff thresholds for the [place] [facility]. Performed By: #### L 500.4100, L5.9985 ####[facility] [address] [place], [address] Cholesterol in HDL [Mass/Vol] 23 mg/dL Low [facility] Comment on above: Result Comment: [place]y onal Cholesterol Education Program (NCEP) guidelines:<40 mg/dL: Low HDL-cholesterol (major risk factor for CHD)>= 60 mg/dL: High HDL-cholesterol (negative risk factor forCHD)HDL-cholesterol is affected by a number of factors, e.g.smoking, exercise, hormones, sex and age. Performed By: #### L 500.4100, L501.9985 ####[facility] [address] [place], [address] Cholesterol in LDL [Mass/Vol] 31 mg/dL Normal [facility] Comment on above: Result Comment: Bord wocxro=311-515 mg/dL Higher Fwsp=794 mg/dL or greater Performed By: #### L 500.4100, L501.9985 ####[facility] [address] [place], [address] Cholesterol in VLDL [Mass/Vol] 33 mg/dL Normal 5-40 [facility] Comment on above: Performed By: #### L 500.4100, L501.9985 ####[facility] [address] [place], [address] Triglyceride [Mass/Vol] 166 mg/dL Normal [facility] Comment on above: Result Comment: The drugs N-Acetylcysteine and Metamizole may falselydepress this assay.Normal range: <150 mg/dLBorderline High: 150-199 mg/dLHigh: 200-499 mg/dLVery High: >500 mg/dL Performed By: #### L 500.4100, L501.9985 ####[facility] [address] [place], [address] Basic Metabolic Profile (BMP )on 04-21-2025 BUN/CRE 15.0 RATIO Normal 10-20 [facility] Comment on above: Performed By: #### L 500.2500, L100.0100 ####[facility] [address] [place], [address] Calcium [Mass/Vol] 9.0 mg/dL Normal 7.6-11.0 [facility] Comment on above: Performed By: #### L 500.2500, L100.0100 ####[facility] [address] [place], [address] Chloride [Moles/Vol] 107 mmol/L Normal 98-108 [facility] Comment on above: Performed By: #### L 500.2500, L100.0100 ####[facility] [address] [place], [address] CO2 [Moles/Vol] 27.7 mmol/L Normal 21.0-32.0 [facility] Comment on above: Performed By: #### L 500.2500, L100.0100 ####[facility] [address] [place], [address] Creatinine [Mass/Vol] 0.95 mg/dL Normal 0.70-1.20 [facility] Comment on above: Performed By: #### L 500.2500, L100.0100 ####[facility] [address] [place], [address] ECRCL 51.79 ml/min Normal 50-250 [facility] Comment on above: Performed By: #### L 500.2500, L100.0100 ####[facility] [address] [place], [address] GAP 8 Normal 5-15 [facility] Comment on above: Performed By: #### L 500.2500, L100.0100 ####[facility] [address] [place], [address] GFR/1.73 sq M.predicted among non-blacks MDRD (S/P/Bld) [Vol rate/Area] 64 mL/min/{1.73_m2} Normal >60 [facility] Comment on above: Result Comment: mL/m in/1.73m2 CKD-EPI Creatinine Equation (2020) Performed By: #### L 500.2500, L100.0100 ####[facility] [address] [place], [address] Glucose [Mass/Vol] 185 mg/dL High 70-99 [facility] Comment on above: Performed By: #### L 500.2500, L100.0100 ####[facility] [address] [place], [address] Potassium [Moles/Vol] 4.3 mmol/L Normal 3.3-5.1 [facility] Comment on above: Performed By: #### L 500.2500, L100.0100 ####[facility] [address] [place], [address] Sodium [Moles/Vol] 142 mmol/L Normal 133-145 [facility] Comment on above: Performed By: #### L 500.2500, L100.0100 ####[facility] [address] [place], [address] Urea nitrogen [Mass/Vol] 14 mg/dL Normal 4-19 [facility] Comment on above: Performed By: #### L 500.2500, L100.0100 ####[facility] [address] [place], [address] Bedside Glucoseon - FINGERSTICK GLU 139 mg/dL High 74-106 [facility] Comment on above: Result Comment: TORRES GEMENT OF PATIENT CARE PER NURSING PROTOCOL Performed By: #### L 501.080 ####[facility] [address] [place], [address] FINGERSTICK GLU 165 mg/dL High 74-106 [facility] Comment on above: Result Comment: TORRES GEMENT OF PATIENT CARE PER NURSING PROTOCOL Performed By: #### L 501.080 ####[facility] [address] [place], [address] CBC W/Diff, Automatedon 05- Absolute Lymph 1.10 X10 3/uL Normal 0.83-4.51 [facility] Comment on above: Performed By: #### L 500.2500, L100.0100 ####[facility] [address] [place], [address] Absolute Neut 4.2 X10 3/uL Normal 2.0-7.7 [facility] Comment on above: Performed By: #### L 500.2500, L100.0100 ####[facility] [address] [place], [address] Basophils/100 WBC (Bld) 0.3 % Normal 0-1 [facility] Comment on above: Performed By: #### L 500.2500, L100.0100 ####[facility] [address] [place], [address] Eosinophils/100 WBC (Bld) 2.7 % Normal 0-5 [facility] Comment on above: Performed By: #### L 500.2500, L100.0100 ####[facility] [address] [place], [address] Erythrocyte distribution width (RBC) [Ratio] 13.9 % Normal 11.6-14.6 [facility] Comment on above: Performed By: #### L 500.2500, L100.0100 ####[facility] [address] [place], [address] Hematocrit (Bld) [Volume fraction] 30.3 % Low 37-47 [facility] Comment on above: Performed By: #### L 500.2500, L100.0100 ####[facility] [address] [place], [address] Hemoglobin (Bld) [Mass/Vol] 9.7 g/dL Low 12.0-15.0 [facility] Comment on above: Performed By: #### L 500.2500, L100.0100 ####[facility] [address] [place], [address] IG% 0.300 Normal 0.0-0.9 [facility] Comment on above: Result Comment: IG% - Immature Granulocytes (promyelocytes, myelocytes andmetamyelocytes) > 1% indicates that a LEFT SHIFT is Present. Performed By: #### L 500.2500, L100.0100 ####[facility] [address] [place], [address] Lymphocytes/100 WBC (Bld) 18.6 % Low 19-41 [facility] Comment on above: Performed By: #### L 500.2500, L100.0100 ####[facility] [address] [place], [address] MCH (RBC) [Entitic mass] 31.1 pg Normal 27.0-32.0 [facility] Comment on above: Performed By: #### L 500.2500, L100.0100 ####[facility] [address] [place], [address] MCHC (RBC) [Mass/Vol] 32.0 g/dL Normal 32-36 [facility] Comment on above: Performed By: #### L 500.2500, L100.0100 ####[facility] [address] [place], [address] MCV (RBC) [Entitic vol] 97.1 fL Normal 81-99 [facility] Comment on above: Performed By: #### L 500.2500, L100.0100 ####[facility] [address] [place], [address] Monocytes/100 WBC (Bld) 7.5 % Normal 0-10 [facility] Comment on above: Performed By: #### L 500.2500, L100.0100 ####[facility] [address] [place], [address] Neutrophils/100 WBC (Bld) 70.6 % High 47-70 [facility] Comment on above: Performed By: #### L 500.2500, L100.0100 ####[facility] [address] [place], [address] Nucleated RBC (Bld) [#/Vol] 0 10*3/uL Normal 0-5 [facility] Comment on above: Performed By: #### L 500.2500, L100.0100 ####[facility] [address] [place], [address] Platelet mean volume (Bld) [Entitic vol] 10.3 fL Normal 6.2-12.0 [facility] Comment on above: Performed By: #### L 500.2500, L100.0100 ####[facility] [address] [place], [address] Platelets (Bld) [#/Vol] 168 10*3/uL Normal 150-450 [facility] Comment on above: Performed By: #### L 500.2500, L100.0100 ####[facility] [address] [place], [address] RBC (Bld) [#/Vol] 3.12 10*6/uL Low 4.2-5.4 [facility] Comment on above: Performed By: #### L 500.2500, L100.0100 ####[facility] [address] [place], [address] RDW SD 49.7 fl High 35.1-43.9 [facility] Comment on above: Performed By: #### L 500.2500, L100.0100 ####[facility] [address] [place], [address] WBC (Bld) [#/Vol] 5.9 10*3/uL Normal 4.4-11.0 [facility] Comment on above: Performed By: #### L 500.2500, L100.0100 ####[facility] [address] [place], [address] Anion gap in Serum or Plasma Ordered By: Maximo Orosco on 04-20-2025 Anion gap [Moles/Vol] 10 mmol/L 04-05 [facility] BUN/creatinine ratioOrdered By: Maximo Orosco on 04-20-2025 Urea nitrogen/Creatinine [Mass ratio] 13.4 mg/mg 09-10 [facility] Basic Metabolic Profile (BMP )on 04-20-2025 BUN/CRE 13.4 RATIO Normal 09-10 [facility] Comment on above: Performed By: #### L 100.0500, L500.2500 ####[facility] [address] [place], [address] Calcium [Mass/Vol] 8.7 mg/dL Normal 7.6-11.0 [facility] Comment on above: Performed By: #### L 100.0500, L500.2500 ####[facility] [address] [place], [address] Chloride [Moles/Vol] 105 mmol/L Normal 98-108 [facility] Comment on above: Performed By: #### L 100.0500, L500.2500 ####[facility] [address] [place], [address] CO2 [Moles/Vol] 23.8 mmol/L Normal 21.0-32.0 [facility] Comment on above: Performed By: #### L 100.0500, L500.2500 ####[facility] [address] [place], [address] Creatinine [Mass/Vol] 0.88 mg/dL Normal 0.70-1.20 [facility] Comment on above: Performed By: #### L 100.0500, L500.2500 ####[facility] [address] [place], [address] ECRCL 56.56 ml/min Normal 50-250 [facility] Comment on above: Performed By: #### L 100.0500, L500.2500 ####[facility] [address] [place], [address] GAP 10 Normal 5-15 [facility] Comment on above: Performed By: #### L 100.0500, L500.2500 ####[facility] [address] [place], [address] GFR/1.73 sq M.predicted among non-blacks MDRD (S/P/Bld) [Vol rate/Area] 70 mL/min/{1.73_m2} Normal >60 [facility] Comment on above: Result Comment: mL/m in/1.73m2 CKD-EPI Creatinine Equation (2020) Performed By: #### L 100.0500, L500.2500 ####[facility] [address] [place], [address] Glucose [Mass/Vol] 188 mg/dL High 70-99 [facility] Comment on above: Performed By: #### L 100.0500, L500.2500 ####[facility] [address] [place], [address] Potassium [Moles/Vol] 3.9 mmol/L Normal 3.3-5.1 [facility] Comment on above: Result Comment: Hemo lysis present, Results??could be affected.?? Performed By: #### L 100.0500, L500.2500 ####[facility] [address] [place], [address] Sodium [Moles/Vol] 138 mmol/L Normal 133-145 [facility] Comment on above: Performed By: #### L 100.0500, L500.2500 ####[facility] [address] [place], [address] Urea nitrogen [Mass/Vol] 12 mg/dL Normal 4-19 [facility] Comment on above: Performed By: #### L 100.0500, L500.2500 ####[facility] [address] [place], [address] Bedside Glucoseon 04-20-2025 FINGERSTICK GLU 177 mg/dL High 74-106 [facility] Comment on above: Result Comment: TORRES GEMENT OF PATIENT CARE PER NURSING PROTOCOL Performed By: #### L 501.080 ####[facility] [address] [place], [address] FINGERSTICK GLU 225 mg/dL High 74-106 [facility] Comment on above: Result Comment: TORRES GEMENT OF PATIENT CARE PER NURSING PROTOCOL Performed By: #### L 501.080 ####[facility] [address] [place], [address] FINGERSTICK GLU 197 mg/dL High 74-106 [facility] Comment on above: Result Comment: TORRES FRANKLIN OF PATIENT CARE PER NURSING PROTOCOL Performed By: #### L 501.080 ####[facility] [address] [place], [address] CBC-Complete Blood Cnt No Di ffon 04-20-2025 Erythrocyte distribution width (RBC) [Ratio] 13.7 % Normal 11.6-14.6 [facility] Comment on above: Performed By: #### L 100.0500, L500.2500 ####[facility] [address] [place], [address] Hematocrit (Bld) [Volume fraction] 28.7 % Low 37-47 [facility] Comment on above: Performed By: #### L 100.0500, L500.2500 ####[facility] [address] [place], [address] Hemoglobin (Bld) [Mass/Vol] 9.6 g/dL Low 12.0-15.0 [facility] Comment on above: Performed By: #### L 100.0500, L500.2500 ####[facility] [address] [place], [address] MCH (RBC) [Entitic mass] 31.3 pg Normal 27.0-32.0 [facility] Comment on above: Performed By: #### L 100.0500, L500.2500 ####[facility] [address] [place], [address] MCHC (RBC) [Mass/Vol] 33.4 g/dL Normal 32-36 [facility] Comment on above: Performed By: #### L 100.0500, L500.2500 ####[facility] [address] [place], [address] MCV (RBC) [Entitic vol] 93.5 fL Normal 81-99 [facility] Comment on above: Performed By: #### L 100.0500, L500.2500 ####[facility] [address] [place], [address] Platelet mean volume (Bld) [Entitic vol] 10.7 fL Normal 6.2-12.0 [facility] Comment on above: Performed By: #### L 100.0500, L500.2500 ####[facility] [address] [place], [address] Platelets (Bld) [#/Vol] 175 10*3/uL Normal 150-450 [facility] Comment on above: Performed By: #### L 100.0500, L500.2500 ####[facility] [address] [place], [address] RBC (Bld) [#/Vol] 3.07 10*6/uL Low 4.2-5.4 [facility] Comment on above: Performed By: #### L 100.0500, L500.2500 ####[facility] [address] [place], [address] RDW SD 46.6 fl High 35.1-43.9 [facility] Comment on above: Performed By: #### L 100.0500, L500.2500 ####[facility] [address] [place], [address] WBC (Bld) [#/Vol] 6.0 10*3/uL Normal 4.4-11.0 [facility] Comment on above: Performed By: #### L 100.0500, L500.2500 ####[facility] [address] [place], [address] Carbon dioxide, total [Moles /volume] in Central venous bloodOrdered By: Maximo Orosco on 04-20-2025 CO2 [Moles/Vol] 23.8 mmol/L 21.0-32.0 [facility] Chloride assayOrdered By: Sam Orosco on 04-20-2025 Chloride [Moles/Vol] 105 mmol/L 98-108 [facility] Erythrocyte distribution wid th ratioOrdered By: Maximo Orosco on 04-20-2025 Erythrocyte distribution width (RBC) [Ratio] 13.7 % 11.6-14.6 [facility] Erythrocyte distribution wid th standard deviationOrdered By: Maximo Orosco on 04-20-2025 Erythrocyte distribution width (RBC) [Ratio] 46.6 fl High 35.1-43.9 [facility] Glomerular filtration rate ( GFR) estimation/1.73 sq m using serum, plasma, or whole bOrdered By: Maximo Orosco on 04-20-2025 GFR/1.73 sq M.predicted among non-blacks MDRD (S/P/Bld) [Vol rate/Area] 70 mL/min/{1.73_m2} >60 [facility] Comment on above: mL/min/1.73m2 CKD-EP I Creatinine Equation (2020) Gl[facility] at [facility] deOrdered By: Maximo Orosco on 04-20-2025 Glucose [Mass/Vol] 225 mg/dL High 74-106 [facility] Comment on above: MANAGEMENT OF PATIEN T CARE PER NURSING PROTOCOL Hematocrit Auto (Bld) [Volum e fraction]Ordered By: Maximo Orosco on 04-20-2025 Hematocrit (Bld) [Volume fraction] 28.7 % Low 37-47 [facility] Hemoglobin measurementOrdere d By: Maximo Orosco on 04-20-2025 Hemoglobin (Bld) [Mass/Vol] 9.6 g/dL Low 12.0-15.0 [facility] MCV (mean corpuscular volume ) determinationOrdered By: Maximo Orosco on 04-20-2025 MCV (RBC) [Entitic vol] 93.5 fL 81-99 [facility] Mean corpuscular hemoglobin (MCH) determinationOrdered By: Maximo Orosco on 04-20-2025 MCH (RBC) [Entitic mass] 31.3 pg 27.0-32.0 [facility] Mean corpuscular hemoglobin concentration (MCHC) determinationOrdered By: Maximo Orosco on 04-20-2025 MCHC (RBC) [Mass/Vol] 33.4 g/dL 32-36 [facility] Mean platelet volume determi nationOrdered By: Maximo Orosco on 04-20-2025 Platelet mean volume (Bld) [Entitic vol] 10.7 fL 6.2-12.0 [facility] Platelet countOrdered By: Sam Orosco on 04-20-2025 Platelets (Bld) [#/Vol] 175 10*3/uL 150-450 [facility] Potassium measurement (mass/ volume)Ordered By: Maximo Orosco on 04-20-2025 Potassium (Unsp spec) [Mass/Vol] 3.9 mmol/L 3.3-5.1 [facility] Comment on above: Hemolysis present, R esults could be affected. RBC Auto (Bld) [#/Vol]Ordere d By: Maximo Orosco on 04-20-2025 RBC (Bld) [#/Vol] 3.07 10*6/uL Low 4.2-5.4 [facility] Serum creatinine measurement (mass/volume)Ordered By: Maximo Orosco on 04-20-2025 Creatinine [Mass/Vol] 0.88 mg/dL 0.70-1.20 [facility] Serum glucose measurement (m ass/volume)Ordered By: Maximo Orosco on 04-20-2025 Glucose [Mass/Vol] 188 mg/dL High 70-99 [facility] Serum or plasma calcium loco urement (mass/volume)Ordered By: Maximo Orosco on 04-20-2025 Calcium [Mass/Vol] 8.7 mg/dL 7.6-11.0 [facility] Serum or plasma urea nitroge n measurement (mass/volume)Ordered By: Maximo Orosco on 04-20-2025 Urea nitrogen [Mass/Vol] 12 mg/dL 4-19 [facility] Sodium levelOrdered By: Pasquale Orosco on 04-20-2025 Sodium [Moles/Vol] 138 mmol/L 133-145 [facility] White blood cell (WBC) count Ordered By: Maximo Orosco on 04-20-2025 WBC (Bld) [#/Vol] 6.0 10*3/uL 4.4-11.0 [facility] 12 Lead EKGon 04-19-2025 12 Lead EKG Normal [facility] Absolute lymphocyte countOrd ered By: Romeo Padron on 04-19-2025 Lymphocytes Auto (Unsp spec) [#/Vol] 0.90 10*3/uL 0.83-4.51 [facility] Absolute neutrophil countOrd ered By: Romeo Padron on 04-19-2025 Neutrophils (Bld) [#/Vol] 6.8 10*3/uL 2.0-7.7 [facility] Anion gap in Serum or Plasma Ordered By: Romeo Padron on 04-19-2025 Anion gap [Moles/Vol] 10 mmol/L 5- [facility] Automated lymphocyte count a s percentage of total leukocytesOrdered By: Romeo Padron on 04-19-2025 Lymphocytes/100 WBC Auto (Unsp spec) 10.4 % Low 19-41 [facility] BUN/creatinine ratioOrdered By: Romeo Padron on 04-19-2025 Urea nitrogen/Creatinine [Mass ratio] 19.3 mg/mg 10- [facility] Basic Metabolic Profile (BMP )on 04-19-2025 BUN/CRE 19.3 RATIO Normal - [facility] Comment on above: Performed By: #### L 501.9520, L501.5200, L100.0100, L500.2500 ####[facility] [address] [place], [address] Calcium [Mass/Vol] 9.0 mg/dL Normal 7.6-11.0 [facility] Comment on above: Performed By: #### L 501.9520, L501.5200, L100.0100, L500.2500 ####[facility] [address] [place], [address] Chloride [Moles/Vol] 99 mmol/L Normal 98-108 [facility] Comment on above: Performed By: #### L 501.9520, L501.5200, L100.0100, L500.2500 ####[facility] [address] [place], [address] CO2 [Moles/Vol] 25.9 mmol/L Normal 21.0-32.0 [facility] Comment on above: Performed By: #### L 501.9520, L501.5200, L100.0100, L500.2500 ####[facility] [address] [place], [address] Creatinine [Mass/Vol] 1.02 mg/dL Normal 0.70-1.20 [facility] Comment on above: Performed By: #### L 501.9520, L501.5200, L100.0100, L500.2500 ####[facility] [address] [place], [address] ECRCL 50.29 ml/min Normal 50-250 [facility] Comment on above: Performed By: #### L 501.9520, L501.5200, L100.0100, L500.2500 ####[facility] [address] [place], [address] GAP 10 Normal 5-15 [facility] Comment on above: Performed By: #### L 501.9520, L501.5200, L100.0100, L500.2500 ####[facility] [address] [place], [address] GFR/1.73 sq M.predicted among non-blacks MDRD (S/P/Bld) [Vol rate/Area] 58 mL/min/{1.73_m2} Low >60 [facility] Comment on above: Result Comment: mL/m in/1.73m2 CKD-EPI Creatinine Equation (2020) Performed By: #### L 501.9520, L501.5200, L100.0100, L500.2500 ####[facility] [address] [place], [address] Glucose [Mass/Vol] 229 mg/dL High 70-99 [facility] Comment on above: Performed By: #### L 501.9520, L501.5200, L100.0100, L500.2500 ####[facility] [address] [place], [address] Potassium [Moles/Vol] 4.4 mmol/L Normal 3.3-5.1 [facility] Comment on above: Result Comment: Hemo lysis present, Results??could be affected.?? Performed By: #### L 501.9520, L501.5200, L100.0100, L500.2500 ####[facility] [address] [place], [address] Sodium [Moles/Vol] 135 mmol/L Normal 133-145 [facility] Comment on above: Performed By: #### L 501.9520, L501.5200, L100.0100, L500.2500 ####[facility] [address] [place], [address] Urea nitrogen [Mass/Vol] 20 mg/dL High 4-19 [facility] Comment on above: Performed By: #### L 501.9520, L501.5200, L100.0100, L500.2500 ####[facility] [address] [place], [address] Basophil percentageOrdered B y: Romeo Padron on 04-19-2025 Basophils/100 WBC (Bld) 0.3 % 0-1 [facility] Bedside Glucoseon 04-19-2025 FINGERSTICK GLU 242 mg/dL High 74-106 [facility] Comment on above: Result Comment: TORRES GEMENT OF PATIENT CARE PER NURSING PROTOCOL Performed By: #### L 501.080 ####[facility] [address] [place], [address] FINGERSTICK GLU 260 mg/dL High 74-106 [facility] Comment on above: Result Comment: TORRES GEMENT OF PATIENT CARE PER NURSING PROTOCOL Performed By: #### L 501.080 ####[facility] [address] [place], [address] FINGERSTICK GLU 153 mg/dL High 74-106 [facility] Comment on above: Result Comment: TORRES ANUENT OF PATIENT CARE PER NURSING PROTOCOL Performed By: #### L 501.080 ####[facility] [address] [place], [address] Bilirubin Test strip Ql (U)O rdered By: Romeo Padron on 04-19-2025 Bilirubin Ql (U) Negative Negative [facility] CBC W/Diff, Automatedon 03-23 Absolute Lymph 0.90 X10 3/uL Normal 0.83-4.51 [facility] Comment on above: Performed By: #### L 501.9520, L501.5200, L100.0100, L500.2500 ####[facility] [address] [place], [address] Absolute Neut 6.8 X10 3/uL Normal 2.0-7.7 [facility] Comment on above: Performed By: #### L 501.9520, L501.5200, L100.0100, L500.2500 ####[facility] [address] [place], [address] Basophils/100 WBC (Bld) 0.3 % Normal 0-1 [facility] Comment on above: Performed By: #### L 501.9520, L501.5200, L100.0100, L500.2500 ####[facility] [address] [place], [address] Eosinophils/100 WBC (Bld) 2.5 % Normal 0-5 [facility] Comment on above: Performed By: #### L 501.9520, L501.5200, L100.0100, L500.2500 ####[facility] [address] [place], [address] Erythrocyte distribution width (RBC) [Ratio] 13.3 % Normal 11.6-14.6 [facility] Comment on above: Performed By: #### L 501.9520, L501.5200, L100.0100, L500.2500 ####[facility] [address] [place], [address] Hematocrit (Bld) [Volume fraction] 30.8 % Low 37-47 [facility] Comment on above: Performed By: #### L 501.9520, L501.5200, L100.0100, L500.2500 ####[facility] [address] [place], [address] Hemoglobin (Bld) [Mass/Vol] 10.4 g/dL Low 12.0-15.0 [facility] Comment on above: Performed By: #### L 501.9520, L501.5200, L100.0100, L500.2500 ####[facility] [address] [place], [address] IG% 0.300 Normal 0.0-0.9 [facility] Comment on above: Result Comment: IG% - Immature Granulocytes (promyelocytes, myelocytes andmetamyelocytes) > 1% indicates that a LEFT SHIFT is Present. Performed By: #### L 501.9520, L501.5200, L100.0100, L500.2500 ####[facility] [address] [place], [address] Lymphocytes/100 WBC (Bld) 10.4 % Low 19-41 [facility] Comment on above: Performed By: #### L 501.9520, L501.5200, L100.0100, L500.2500 ####[facility] [address] [place], [address] MCH (RBC) [Entitic mass] 31.3 pg Normal 27.0-32.0 [facility] Comment on above: Performed By: #### L 501.9520, L501.5200, L100.0100, L500.2500 ####[facility] [address] [place], [address] MCHC (RBC) [Mass/Vol] 33.8 g/dL Normal 32-36 [facility] Comment on above: Performed By: #### L 501.9520, L501.5200, L100.0100, L500.2500 ####[facility] [address] [place], [address] MCV (RBC) [Entitic vol] 92.8 fL Normal 81-99 [facility] Comment on above: Performed By: #### L 501.9520, L501.5200, L100.0100, L500.2500 ####[facility] [address] [place], [address] Monocytes/100 WBC (Bld) 8.2 % Normal 0-10 [facility] Comment on above: Performed By: #### L 501.9520, L501.5200, L100.0100, L500.2500 ####[facility] [address] [place], [address] Neutrophils/100 WBC (Bld) 78.3 % High 47-70 [facility] Comment on above: Performed By: #### L 501.9520, L501.5200, L100.0100, L500.2500 ####[facility] [address] [place], [address] Nucleated RBC (Bld) [#/Vol] 0 10*3/uL Normal 0-5 [facility] Comment on above: Performed By: #### L 501.9520, L501.5200, L100.0100, L500.2500 ####[facility] [address] [place], [address] Platelet mean volume (Bld) [Entitic vol] 10.8 fL Normal 6.2-12.0 [facility] Comment on above: Performed By: #### L 501.9520, L501.5200, L100.0100, L500.2500 ####[facility] [address] [place], [address] Platelets (Bld) [#/Vol] 189 10*3/uL Normal 150-450 [facility] Comment on above: Performed By: #### L 501.9520, L501.5200, L100.0100, L500.2500 ####[facility] [address] [place], [address] RBC (Bld) [#/Vol] 3.32 10*6/uL Low 4.2-5.4 [facility] Comment on above: Performed By: #### L 501.9520, L501.5200, L100.0100, L500.2500 ####[facility] [address] [place], [address] RDW SD 44.9 fl High 35.1-43.9 [facility] Comment on above: Performed By: #### L 501.9520, L501.5200, L100.0100, L500.2500 ####[facility] [address] [place], [address] WBC (Bld) [#/Vol] 8.7 10*3/uL Normal 4.4-11.0 [facility] Comment on above: Performed By: #### L 501.9520, L501.5200, L100.0100, L500.2500 ####[facility] [address] [place], [address] Carbon dioxide, total [Moles /volume] in Central venous bloodOrdered By: Romeo Padron on 04-19-2025 CO2 [Moles/Vol] 25.9 mmol/L 21.0-32.0 [facility] Chloride assayOrdered By: Lizeth Padron on 04-19-2025 Chloride [Moles/Vol] 99 mmol/L 98-108 [facility] Emergency Department Summary on 04-19-2025 Emergency Department Summary Normal [facility] Eosinophil percentageOrdered By: Romeo Padron on 04-19-2025 Eosinophils/100 WBC (Bld) 2.5 % 0-5 [facility] Erythrocyte distribution wid th ratioOrdered By: Romeo Padron on 04-19-2025 Erythrocyte distribution width (RBC) [Ratio] 13.3 % 11.6-14.6 [facility] Erythrocyte distribution wid th standard deviationOrdered By: Romeo Padron on 04-19-2025 Erythrocyte distribution width (RBC) [Ratio] 44.9 fl High 35.1-43.9 [facility] Glomerular filtration rate ( GFR) estimation/1.73 sq m using serum, plasma, or whole bOrdered By: Romeo Padron on 04-19-2025 GFR/1.73 sq M.predicted among non-blacks MDRD (S/P/Bld) [Vol rate/Area] 58 mL/min/{1.73_m2} Low >60 [facility] Comment on above: mL/min/1.73m2 CKD-EP I Creatinine Equation (2020) [facility] deOrdered By: Romeo Padron on 04-19-2025 Glucose [Mass/Vol] 153 mg/dL High 74-106 [facility] Comment on above: MANAGEMENT OF PATIEN T CARE PER NURSING PROTOCOL H AND P Exam - [facility] 04-19-2025 H&P Exam - Hospitalist Normal [facility] Hematocrit Auto (Bld) [Volum e fraction]Ordered By: Romeo Padron on 04-19-2025 Hematocrit (Bld) [Volume fraction] 30.8 % Low 37-47 [facility] Hemoglobin measurementOrdere d By: Romeo Padron on 04-19-2025 Hemoglobin (Bld) [Mass/Vol] 10.4 g/dL Low 12.0-15.0 [facility] Immature granulocytes/100 WB C Auto (Bld)Ordered By: Romeo Padron on 04-19-2025 Immature granulocytes/100 WBC (Bld) 0.300 % 0.0-0.9 [facility] Comment on above: IG% - Immature Granu locytes (promyelocytes, myelocytes and metamyelocytes) > 1% indicates that a LEFT SHIFT is Present. Ketones Test strip Ql (U)Ord ered By: Romeo Padron on 04-19-2025 Ketones Ql (U) Negative Negative [facility] MCV (mean corpuscular volume ) determinationOrdered By: Romeo Padron on 04-19-2025 MCV (RBC) [Entitic vol] 92.8 fL 81-99 [facility] Magnesiumon 04-19-2025 Magnesium [Mass/Vol] 1.6 mg/dL Normal 1.5-2.2 [facility] Comment on above: Performed By: #### L 501.9520, L501.5200, L100.0100, L500.2500 ####[facility] [address] [place], [address] Magnesium measurement (mass/ volume)Ordered By: Romeo Padron on 04-19-2025 Magnesium (Unsp spec) [Mass/Vol] 1.6 mg/dL 1.5-2.2 [facility] Mean corpuscular hemoglobin (MCH) determinationOrdered By: Romeo Padron on 04-19-2025 MCH (RBC) [Entitic mass] 31.3 pg 27.0-32.0 [facility] Mean corpuscular hemoglobin concentration (MCHC) determinationOrdered By: Romeo Padron on 04-19-2025 MCHC (RBC) [Mass/Vol] 33.8 g/dL 32-36 [facility] Mean platelet volume determi nationOrdered By: Romeo Padron on 04-19-2025 Platelet mean volume (Bld) [Entitic vol] 10.8 fL 6.2-12.0 [facility] Microscopic analysis of urin e for red blood cells (RBC)Ordered By: Romeo Padron on 04-19-2025 Microscopic analysis of urine for red blood cells (RBC) 0 SEEN /hpf 0-5 [facility] Monocyte percentageOrdered B y: Romeo Padron on 04-19-2025 Monocytes/100 WBC (Bld) 8.2 % 0-10 [facility] Mucus LM Ql (Urine sed)Order ed By: Romeo Padron on 04-19-2025 Mucus Ql (Urine sed) 0 SEEN /hpf [facility] Neutrophil percentageOrdered By: Romeo Padron on 04-19-2025 Neutrophils/100 WBC (Bld) 78.3 % High 47-70 [facility] Nitrite Test strip Ql (U)Ord ered By: Romoe Padron on 04-19-2025 Nitrite Ql (U) Negative Negative [facility] Nucleated red blood cell per centageOrdered By: Romeo Padron on 04-19-2025 Nucleated RBC/100 WBC (Bld) [Ratio] 0 % 0-5 [facility] Platelet countOrdered By: Lizeth Padron on 04-19-2025 Platelets (Bld) [#/Vol] 189 10*3/uL 150-450 [facility] Potassium measurement (mass/ volume)Ordered By: Romeo Padron on 04-19-2025 Potassium (Unsp spec) [Mass/Vol] 4.4 mmol/L 3.3-5.1 [facility] Comment on above: Hemolysis present, R esults could be affected. Protein Test strip Ql (U)Ord ered By: Romeo Padron on 04-19-2025 Protein Ql (U) 15 mg/dl High Negative [facility] RBC Auto (Bld) [#/Vol]Ordere d By: Romeo Padron on 04-19-2025 RBC (Bld) [#/Vol] 3.32 10*6/uL Low 4.2-5.4 [facility] Serum creatinine measurement (mass/volume)Ordered By: Romeo Padron on 04-19-2025 Creatinine [Mass/Vol] 1.02 mg/dL 0.70-1.20 [facility] Serum glucose measurement (m ass/volume)Ordered By: Romeo Padron on 04-19-2025 Glucose [Mass/Vol] 229 mg/dL High 70-99 [facility] Serum or plasma calcium loco urement (mass/volume)Ordered By: Romeo Padron on 04-19-2025 Calcium [Mass/Vol] 9.0 mg/dL 7.6-11.0 [facility] Serum or plasma urea nitroge n measurement (mass/volume)Ordered By: Romeo Padron on 04-19-2025 Urea nitrogen [Mass/Vol] 20 mg/dL High 4-19 [facility] Sodium levelOrdered By: Aleksander Padron on 04-19-2025 Sodium [Moles/Vol] 135 mmol/L 133-145 [facility] Squamous epithelial cells de tection in urine sediment by light microscopyOrdered By: Romeo Padron on 04-19-2025 Epithelial cells.squamous LM Ql (Urine sed) 0 SEEN /hpf 5- [facility] TSH DL <= 0.005 mIU/L QnOrde red By: Romeo Padron on 04-19-2025 TSH Qn 4.050 uIU/mL 0.300-4.20 0 [facility] Thyroid Stim Hormone (TSH)on 04-19-2025 TSH 4.050 uIU/mL Normal 0.300-4.20 0 [facility] Comment on above: Performed By: #### L 501.9520, L501.5200, L100.0100, L500.2500 ####[facility] [address] [place], [address] Urinalysis, Completeon 04-19 BACTERIA 0 SEEN Normal None Seen [facility] Comment on above: Order Comment: HUNTER CTOR TO SPECIFY Performed By: #### L 400.0001 ####[facility] [address] [place], [address] EPI,SQUAMOUS 0 SEEN Normal - [facility] Comment on above: Order Comment: HUNTER CTOR TO SPECIFY Performed By: #### L 400.0001 ####[facility] [address] [place], [address] Mucus Ql (Urine sed) 0 SEEN Normal [facility] Comment on above: Order Comment: HUNTER CTOR TO SPECIFY Performed By: #### L 400.0001 ####[facility] [address] [place], [address] RBC 0 SEEN Normal 0-5 [facility] Comment on above: Order Comment: HUNTER CTOR TO SPECIFY Performed By: #### L 400.0001 ####[facility] [address] [place], [place], [id number] WBC 0 SEEN Normal 0-5 [facility] Comment on above: Order Comment: HUNTER CTOR TO SPECIFY Performed By: #### L 400.0001 ####[facility] [address] [place], [place], [id number] Urine clarityOrdered By: Ryan Padron on 04-19-2025 Clarity (U) Clear Clear [facility] Urine color determinationOrd ered By: Romeo Padron on 04-19-2025 Color (U) Yellow Yellow [facility] Urine glucose detectionOrder ed By: Romeo Padron on 04-19-2025 Glucose Ql (U) 100 mg/dl High Normal [facility] Urine leukocyte esterase det ection by dipstickOrdered By: Romeo Padron on 04-19-2025 Leukocyte esterase Test strip Ql (U) Negative Negative [facility] Urine pHOrdered By: Romeo salas on 04-19-2025 pH (U) 6.5 [pH] 5.0 - 8.0 [facility] Urine sediment bacteria coun t by microscopy (number/high power field)Ordered By: Romeo Padron on 04-19-2025 Bacteria LM.HPF (Urine sed) [#/Area] 0 /[HPF] None Seen [facility] Urine specific gravity measu rementOrdered By: Romeo Padron on 04-19-2025 Specific gravity (U) [Rel density] 1.010 1.002-1.03 0 [facility] Urine urobilinogen measureme ntOrdered By: Romeo Padron on 04-19-2025 Urobilinogen Ql (U) Normal mg/dl Normal [facility] White blood cell (WBC) count Ordered By: Romeo Padron on 04-19-2025 WBC (Bld) [#/Vol] 8.7 10*3/uL 4.4-11.0 [facility] White blood cell countOrdere d By: Romeo Padron on 04-19-2025 White blood cell count 0 SEEN /hpf 0-5 [facility] MR Brain WO contraston 04-04 IMPRESSION: 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 Remainder of the brain shows relatively mild background chronic microvascular disease. No acute abnormalities. Salesperson Neckties: MARC Transcribe Date/Time: Apr 04 2025 12:45P Dictated by : BRITANY GASPAR MD This examination was interpreted and the report reviewed and electronically signed by: BRITANY GASPAR MD on Apr 04 2025 1:03PM [facility] * * *Final Report* * * DATE OF EXAM: Apr 04 2025 12:39PM [facility] 0294 - MRI BRAIN WO IVCON / PROCEDURE REASON: multiple diagnoses * * * * Physician Interpretation * * * * EXAMINATION: MRI BRAIN WO IVCON CLINICAL HISTORY: Essential tremor Dyskinesia, tardive. This information is taken directly from the order builder loader system. TECHNIQUE: Routine noncontrast MRI protocol including diffusion images. MQ: MRBWO_2 COMPARISON: Prior nuclear medicine study 09/21/2023. Previous MRI of the brain from outside institution 11/28/2009. RESULT: Acute Change: There is no evidence of restricted diffusion to suggest an acute infarct. Hemorrhage: There is scattered areas of siderosis in the posterior left temporal and inferior left parietal lobes in an area of widespread encephalomalacia likely petechial type blood degradation products related to a large old left MCA territory infarct. (9:25; 4:19; 5:18; 10:25 and adjacent contiguous images for reference). Smaller old infarct paramedian right parietal-occipital infarct. Mass Lesion/ Mass Effect: No evidence of an intracranial mass or extra-axial fluid collection. No significant mass effect. Chronic Change: Mild background chronic microvascular change. More confluent FLAIR/T2 hyperintensity is present in the region of left hemispheric encephalomalacia, likely adjacent gliosis. Parenchyma: There is moderate generalized parenchymal volume loss. Asymmetrically greater left-sided volume loss with ex vacuo prominence of the left lateral ventricle associated with the area of prior infarct. Ventricles: Ventriculomegaly corresponds to the degree of parenchymal volume loss. Hypothalamic and pituitary region normal. Craniovertebral junction normal. Cerebellar tonsils are normally positioned relative to the foramen magnum. Skull Base: Major intracranial arterial structures and dural venous sinuses show typical flow void consistent with patency by spin echo criteria. Vasculature: Major intracranial arterial structures, and dural venous sinuses show typical flow void, suggesting patency by spin echo criteria. Other: Incidental old left medial orbital wall fracture. Some herniation of orbital fat into the small defect, but no extraocular muscle entrapment. Paranasal sinus chambers are otherwise clear. Mastoid air cells and middle ear cavities are clear. Prior lens replacements. Orbits are otherwise unremarkable. [facility] * * *Final Report* * * DATE OF EXAM: Apr 04 2025 12:39PM [facility] 0294 - MRI BRAIN WO IVCON / PROCEDURE REASON: multiple diagnoses * * * * Physician Interpretation * * * * EXAMINATION: MRI BRAIN WO IVCON CLINICAL HISTORY: Essential tremor Dyskinesia, tardive. This information is taken directly from the order builder loader system. TECHNIQUE: Routine noncontrast MRI protocol including diffusion images. MQ: MRBWO_2 COMPARISON: Prior nuclear medicine study 09/21/2023. Previous MRI of the brain from outside institution 11/28/2009. RESULT: Acute Change: There is no evidence of restricted diffusion to suggest an acute infarct. Hemorrhage: There is scattered areas of siderosis in the posterior left temporal and inferior left parietal lobes in an area of widespread encephalomalacia likely petechial type blood degradation products related to a large old left MCA territory infarct. (9:25; 4:19; 5:18; 10:25 and adjacent contiguous images for reference). Smaller old infarct paramedian right parietal-occipital infarct. Mass Lesion/ Mass Effect: No evidence of an intracranial mass or extra-axial fluid collection. No significant mass effect. Chronic Change: Mild background chronic microvascular change. More confluent FLAIR/T2 hyperintensity is present in the region of left hemispheric encephalomalacia, likely adjacent gliosis. Parenchyma: There is moderate generalized parenchymal volume loss. Asymmetrically greater left-sided volume loss with ex vacuo prominence of the left lateral ventricle associated with the area of prior infarct. Ventricles: Ventriculomegaly corresponds to the degree of parenchymal volume loss. Hypothalamic and pituitary region normal. Craniovertebral junction normal. Cerebellar tonsils are normally positioned relative to the foramen magnum. Skull Base: Major intracranial arterial structures and dural venous sinuses show typical flow void consistent with patency by spin echo criteria. Vasculature: Major intracranial arterial structures, and dural venous sinuses show typical flow void, suggesting patency by spin echo criteria. Other: Incidental old left medial orbital wall fracture. Some herniation of orbital fat into the small defect, but no extraocular muscle entrapment. Paranasal sinus chambers are otherwise clear. Mastoid air cells and middle ear cavities are clear. Prior lens replacements. Orbits are otherwise unremarkable. IMPRESSION IMPRESSION: 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 Remainder of the brain shows relatively mild background chronic microvascular disease. No acute abnormalities. Salesperson Neckties: PSCB Transcribe Date/Time: Apr 04 2025 12:45P Dictated by : BRITANY GASPAR MD This examination was interpreted and the report reviewed and electronically signed by: BRITANY GASPAR MD on Apr 04 2025 1:03PM EST [facility] Radiology Study observation (narrative) [facility] MR Brain WO contrastOrdered By: [facility] Provider on 04-04-2025 [facility] MRI BRAIN WO IVCONon 025 MRI BRAIN WO IVCON * * *Final Report* * * DATE OF EXAM: Apr 04 2025 12:39PM [facility] 0294 - MRI BRAIN WO IVCON / PROCEDURE REASON: multiple diagnoses * * * * Physician Interpretation * * * * EXAMINATION: MRI BRAIN WO IVCON CLINICAL HISTORY: Essential tremor Dyskinesia, tardive. This information is taken directly from the order builder loader system. TECHNIQUE: Routine noncontrast MRI protocol including diffusion images. MQ: MRBWO_2 COMPARISON: Prior nuclear medicine study 09/21/2023. Previous MRI of the brain from outside institution 11/28/2009. RESULT: Acute Change: There is no evidence of restricted diffusion to suggest an acute infarct. Hemorrhage: There is scattered areas of siderosis in the posterior left temporal and inferior left parietal lobes in an area of widespread encephalomalacia likely petechial type blood degradation products related to a large old left MCA territory infarct. (9:25; 4:19; 5:18; 10:25 and adjacent contiguous images for reference). Smaller old infarct paramedian right parietal-occipital infarct. Mass Lesion/ Mass Effect: No evidence of an intracranial mass or extra-axial fluid collection. No significant mass effect. Chronic Change: Mild background chronic microvascular change. More confluent FLAIR/T2 hyperintensity is present in the region of left hemispheric encephalomalacia, likely adjacent gliosis. Parenchyma: There is moderate generalized parenchymal volume loss. Asymmetrically greater left-sided volume loss with ex vacuo prominence of the left lateral ventricle associated with the area of prior infarct. Ventricles: Ventriculomegaly corresponds to the degree of parenchymal volume loss. Hypothalamic and pituitary region normal. Craniovertebral junction normal. Cerebellar tonsils are normally positioned relative to the foramen magnum. Skull Base: Major intracranial arterial structures and dural venous sinuses show typical flow void consistent with patency by spin echo criteria. Vasculature: Major intracranial arterial structures, and dural venous sinuses show typical flow void, suggesting patency by spin echo criteria. Other: Incidental old left medial orbital wall fracture. Some herniation of orbital fat into the small defect, but no extraocular muscle entrapment. Paranasal sinus chambers are otherwise clear. Mastoid air cells and middle ear cavities are clear. Prior lens replacements. Orbits are otherwise unremarkable. IMPRESSION: 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 Remainder of the brain shows relatively mild background chronic microvascular disease. No acute abnormalities. Salesperson Neckties: PSCB Transcribe Date/Time: Apr 04 2025 12:45P Dictated by : BRITANY GASPAR MD This examination was interpreted and the report reviewed and electronically signed by: BRITANY GASPAR MD on Apr 04 2025 1:03PM EST [id number] Normal [facility] NURSING PROGon 04-04-2025 NURSING PROG HNO ID: [id number] Author: JANINE TOMPKINS RN Service: Nursing Author Type: Registered Nurse Type: Nursing Progress Note Filed: 04/04/2025 12:42 Note Text: Radiology Service Progress Note PATIENT NAME: Mansi Caro DATE OF SERVICE: April 04, 2025 TIME: 12:22 PM PATIENT IDENTITY VERIFICATION COMPLETED USING TWO (2) STANDARD IDENTIFIERS: Name and Date of confirmed by patient verbally. FALL RISK: Is the patient currently using an Ambulatory Assistive Device (Walker, Cane, Wheelchair, Crutches, etc.)? PATIENT GENDER DATA: Assigned female at . status: : No status: NO. PATIENT RELEVANT IMPLANT DATA REVIEWED: Yes ALLERGIES: Reviewed and unchanged MEDICATIONS REVIEWED: YES PROCEDURE: MRI - Conditional Pacemaker [employer] Heel Molder Device - Settings: DOO 90 bpm Physiologic monitoring per standard operating procedure. See vital sign flowsheet. PERIPHERAL IV ACCESS: Not applicable PATIENT TOLERATED PROCEDURE: Without incident. PATIENT DISCHARGED TO: Home/Self Care SIGNED BY: TANIA Barnett Patient arrived here today for an MRI. Patients [employer] Pacemaker was placed in MRI safe mode by irrigation technician AND device. Vitals remained stable throughout - see flowsheet. MRI was completed and then pacemaker was taken out of MRI safe mode and tolerated well. Patient was discharged home with family. [facility] XR CHEST 2V FRONTAL/LATon XR CHEST 2V FRONTAL/LAT * * *Final Report* * * DATE OF EXAM: Apr 02 2025 9:35AM TARYN [id number] - XR CHEST 2V FRONTAL/LAT / PROCEDURE REASON: Z95.0-Presence of cardiac pacemaker * * * * Physician Interpretation * * * * EXAMINATION: CHEST RADIOGRAPH (2 VIEW FRONTAL and LATERAL) CLINICAL HISTORY: Presence of cardiac pacemaker MQ: [id number] EXAM DATE/TIME: 04/02/2025 9:35 AM COMPARISON: 01/19/2025 and 07/21/2024 CT RESULT: Lines, tubes, and devices: Left cardiac pacer and leads is seen. Lungs and pleura: No consolidation. No lung mass. No pleural effusion. No pneumothorax. Stable atelectasis or fibrosis at the right base. Stable apical scarring Cardiomediastinal silhouette: Normal cardiomediastinal silhouette. Bones and soft tissues: Unremarkable. IMPRESSION: Stable chest. No developing abnormality or acute process Salesperson Neckties: MARC Transcribe Date/Time: Apr 03 2025 3:49P Dictated by : MIRA HODGSON MD This examination was interpreted and the report reviewed and electronically signed by: MIRA HODGSON MD on Apr 03 2025 3:51PM EST [id number] [facility] 03-28-2025 CNPN Telephone (NRMDN) MANSI CARO ([id number]) 1955 F Date Time Provider Department 5/7/25 LEYLA MURPHY NRMDN During your visit today, we recorded the following information about you: Soumya Moss RN 03/28/2025 9:48 AM Signed Voicemail received March 27, 2025 1454 Spouse calling to check on status of Austedo. Call to pharmacy, Austedo has been authorized. They will be reaching out to patient to discuss co-pay. Allergies As of Date: 03/28/2025 Noted Allergy Reaction LIPITOR (ATORVASTATIN CALCIUM) 04/03/2010 Comments: Heart racing; 07/04/10 patient states that she had started a lot of medication at this time and the she did not have a true allergic reaction and is willing to rechallenge [facility] RN Date Reviewed: 02/27/2025 Reviewed by: Leyla Murphy MD - Fully Assessed Reason for Visit: Patient Question [2059] Prescriptions as of 03/28/2025 - deutetrabenazine XR (AUSTEDO XR) 6 mg tablet Take 1 tablet by mouth once daily. - Acetaminophen 500 mg cap 500 mg. - albuterol sulfate 90 mcg/actuation aebs - oxyCODONE-acetaminophen (PERCOCET) 5-325 mg tablet 1 TABLET ORAL EVERY 6 HOURS NEEDED FOR SEVERE PAIN 30 DAYS - lamoTRIgine (LAMICTAL) 100 mg tablet - LINZESS 145 mcg capsule Take 145 mcg by mouth every morning. - polyethylene glycol 3350 (MIRALAX) 17 gram/dose powder - ferrous sulfate (IRON) 325 mg (65 mg iron) tablet Take 325 mg by mouth once daily. - hyoscyamine sulfate 0.125 mg ODT Take 0.125 mg by mouth three times a day. - Docusate Sodium 100 mg tab Take by mouth once daily. - polyethylene glycol 400 (BLINK TEARS OPHTHALMIC) Use in eyes. - clopidogrel (PLAVIX) 75 mg tablet Take 75 mg by mouth once daily. Takes MWF - metoprolol succinate ER (TOPROL XL) 25 mg 24 hr tablet Take 25 mg by mouth once daily. - cholecalciferol (VITAMIN D3) 1,000 unit tab tablet Take 1,000 Units by mouth once daily. - baclofen 5 mg tablet 1 tab po qid. Do not abruptly stop if at high dose, risk for withdrawal seizures. - clonazePAM (KLONOPIN) 1 mg tablet Take 1 mg by mouth daily at bedtime. - furosemide (LASIX) 20 mg tablet as needed. - traZODone (DESYREL) 50 mg tablet Take 50 mg by mouth as needed. - BABY ASPIRIN ORAL Take 81 mg by mouth every other day. - pantoprazole DR (PROTONIX) 40 mg tablet Take 1 tablet by mouth twice daily. - metFORMIN (GLUCOPHAGE) 500 mg tablet Take 1 tablet by mouth twice daily. - rosuvastatin (CRESTOR) 5 mg ORAL Tab 1 qd Meds Comments as of 07/10/2021: Patient also takes Trazadone 50mg for sleep PRN Problem List As Of Date 03/28/2025 Noted Resolved Acute, but Ill-Defined, Cerebrovascular Disease*08/14/2009 Unspecified Peripheral Vertigo [H81.399] 01/14/2010 Vertigo of Central Origin [H81.4] 01/14/2010 Cholelithiasis [K80.20] 12/26/2014 Personal history of colonic polyps [Z86.0100] 02/21/2015 02/21/2015 Parkinsonism (HCC) [G20.C] 06/25/2022 Spastic hemiparesis (HCC) [G81.10] 05/13/2023 Encounter Status:Closed by SOUMYA MOSS on 03/28/25 Normal [facility] PT D/C Summary (1)on 025 PT D/C Summary (1) Normal [facility] 12 Lead EKGon 03-10-2025 12 Lead EKG Normal [facility] 36on 03-10-2025 36 S-Patient and patien t spouse calling in re: patient fell yesterday and has Left hip pain . B-Happened yesterday A-states having hard time walking due to pain, No COVID Symptoms. Has a brouis, no other sites with pain R-Scheduled Same Day After hours appt today @ 10:00a 03/10/25 @ [facility], address provided Reason for Disposition MILD weakness (i.e., does not interfere with ability to work, go to school, normal activities) (Exception: Mild weakness is a chronic symptom.) Answer Assessment - Initial Assessment Questions . Protocols used: Falls and [id number] Normal [facility] Absolute lymphocyte countOrd ered By: Mellisa Deborah on 03-10-2025 Lymphocytes Auto (Unsp spec) [#/Vol] 1.61 10*3/uL 0.83-4.51 [facility] Absolute neutrophil countOrd ered By: Mellisa Deborah on 03-10-2025 Neutrophils (Bld) [#/Vol] 3.9 10*3/uL 2.0-7.7 [facility] Anion gap in Serum or Plasma Ordered By: Mellisa Cabrera on 03-10-2025 Anion gap [Moles/Vol] 11 mmol/L - [facility] Automated lymphocyte count a s percentage of total leukocytesOrdered By: Mellisahema Cabrera on 03-10-2025 Lymphocytes/100 WBC Auto (Unsp spec) 25.4 % [facility] BUN/creatinine ratioOrdered By: Mellisa Cabrera on 03-10-2025 Urea nitrogen/Creatinine [Mass ratio] 20.1 mg/mg High - [facility] Basic Metabolic Profile (BMP )on 03-10-2025 BUN/CRE 20.1 RATIO High - [facility] Comment on above: Performed By: #### L 100.0100, L500.2500 ####[facility] [address] [place], [address] Calcium [Mass/Vol] 9.1 mg/dL Normal 7.6-11.0 [facility] Comment on above: Performed By: #### L 100.0100, L500.2500 ####[facility] [address] [place], [address] Chloride [Moles/Vol] 106 mmol/L Normal 98-108 [facility] Comment on above: Performed By: #### L 100.0100, L500.2500 ####[facility] [address] [place], [address] CO2 [Moles/Vol] 22.8 mmol/L Normal 21.0-32.0 [facility] Comment on above: Performed By: #### L 100.0100, L500.2500 ####[facility] [address] [place], [address] Creatinine [Mass/Vol] 0.97 mg/dL Normal 0.70-1.20 [facility] Comment on above: Performed By: #### L 100.0100, L500.2500 ####[facility] [address] [place], [address] ECRCL 51.73 ml/min Normal 50-250 [facility] Comment on above: Performed By: #### L 100.0100, L500.2500 ####[facility] [address] [place], [address] GAP 11 Normal 5-15 [facility] Comment on above: Performed By: #### L 100.0100, L500.2500 ####[facility] [address] [place], [address] GFR/1.73 sq M.predicted among non-blacks MDRD (S/P/Bld) [Vol rate/Area] 62 mL/min/{1.73_m2} Normal >60 [facility] Comment on above: Result Comment: mL/m in/1.73m2 CKD-EPI Creatinine Equation (2020) Performed By: #### L 100.0100, L500.2500 ####[facility] [address] [place], [address] Glucose [Mass/Vol] 139 mg/dL High 70-99 [facility] Comment on above: Performed By: #### L 100.0100, L500.2500 ####[facility] [address] [place], [address] Potassium [Moles/Vol] 4.3 mmol/L Normal 3.3-5.1 [facility] Comment on above: Performed By: #### L 100.0100, L500.2500 ####[facility] [address] [place], [address] Sodium [Moles/Vol] 140 mmol/L Normal 133-145 [facility] Comment on above: Performed By: #### L 100.0100, L500.2500 ####[facility] [address] [place], [address] Urea nitrogen [Mass/Vol] 20 mg/dL High - [facility] Comment on above: Performed By: #### L 100.0100, L500.2500 ####[facility] [address] [place], [address] Basophil percentageOrdered B y: Mellisa Deborah on 03-10-2025 Basophils/100 WBC (Bld) 0.3 % 0-1 [facility] Bilirubin Test strip Ql (U)O rdered By: Mellisa Deborah on 03-10-2025 Bilirubin Ql (U) Negative Negative [facility] CBC W/Diff, Automatedon 02-20 Absolute Lymph 1.61 X10 3/uL Normal 0.83-4.51 [facility] Comment on above: Performed By: #### L 100.0100, L500.2500 ####[facility] [address] [place], [address] Absolute Neut 3.9 X10 3/uL Normal 2.0-7.7 [facility] Comment on above: Performed By: #### L 100.0100, L500.2500 ####[facility] [address] [place], [address] Basophils/100 WBC (Bld) 0.3 % Normal 0-1 [facility] Comment on above: Performed By: #### L 100.0100, L500.2500 ####[facility] [address] [place], [address] Eosinophils/100 WBC (Bld) 3.8 % Normal 0-5 [facility] Comment on above: Performed By: #### L 100.0100, L500.2500 ####[facility] [address] [place], [address] Erythrocyte distribution width (RBC) [Ratio] 12.8 % Normal 11.6-14.6 [facility] Comment on above: Performed By: #### L 100.0100, L500.2500 ####[facility] [address] [place], [address] Hematocrit (Bld) [Volume fraction] 32.2 % Low 37-47 [facility] Comment on above: Performed By: #### L 100.0100, L500.2500 ####[facility] [address] [place], [address] Hemoglobin (Bld) [Mass/Vol] 11.0 g/dL Low 12.0-15.0 [facility] Comment on above: Performed By: #### L 100.0100, L500.2500 ####[facility] [address] [place], [address] IG% 0.300 Normal 0.0-0.9 [facility] Comment on above: Result Comment: IG% - Immature Granulocytes (promyelocytes, myelocytes andmetamyelocytes) > 1% indicates that a LEFT SHIFT is Present. Performed By: #### L 100.0100, L500.2500 ####[facility] [address] [place], [address] Lymphocytes/100 WBC (Bld) 25.4 % Normal 19-41 [facility] Comment on above: Performed By: #### L 100.0100, L500.2500 ####[facility] [address] [place], [address] MCH (RBC) [Entitic mass] 30.9 pg Normal 27.0-32.0 [facility] Comment on above: Performed By: #### L 100.0100, L500.2500 ####[facility] [address] [place], [address] MCHC (RBC) [Mass/Vol] 34.2 g/dL Normal 32-36 [facility] Comment on above: Performed By: #### L 100.0100, L500.2500 ####[facility] [address] [place], [address] MCV (RBC) [Entitic vol] 90.4 fL Normal 81-99 [facility] Comment on above: Performed By: #### L 100.0100, L500.2500 ####[facility] [address] [place], [address] Monocytes/100 WBC (Bld) 8.3 % Normal 0-10 [facility] Comment on above: Performed By: #### L 100.0100, L500.2500 ####[facility] [address] [place], [address] Neutrophils/100 WBC (Bld) 61.9 % Normal 47-70 [facility] Comment on above: Performed By: #### L 100.0100, L500.2500 ####[facility] [address] [place], [address] Nucleated RBC (Bld) [#/Vol] 0 10*3/uL Normal 0-5 [facility] Comment on above: Performed By: #### L 100.0100, L500.2500 ####[facility] [address] [place], [address] Platelet mean volume (Bld) [Entitic vol] 11.0 fL Normal 6.2-12.0 [facility] Comment on above: Performed By: #### L 100.0100, L500.2500 ####[facility] [address] [place], [address] Platelets (Bld) [#/Vol] 148 10*3/uL Low 150-450 [facility] Comment on above: Performed By: #### L 100.0100, L500.2500 ####[facility] [address] [place], [address] RBC (Bld) [#/Vol] 3.56 10*6/uL Low 4.2-5.4 [facility] Comment on above: Performed By: #### L 100.0100, L500.2500 ####[facility] [address] [place], [address] RDW SD 42.3 fl Normal 35.1-43.9 [facility] Comment on above: Performed By: #### L 100.0100, L500.2500 ####[facility] [address] [place], [address] WBC (Bld) [#/Vol] 6.4 10*3/uL Normal 4.4-11.0 [facility] Comment on above: Performed By: #### L 100.0100, L500.2500 ####[facility] [address] [place], [address] Carbon dioxide, total [Moles /volume] in Central venous bloodOrdered By: Mellisa Cabrera on 03-10-2025 CO2 [Moles/Vol] 22.8 mmol/L 21.0-32.0 [facility] Chloride assayOrdered By: Amparo Cabrera on 03-10-2025 Chloride [Moles/Vol] 106 mmol/L 98-108 [facility] Emergency Department Summary on 03-10-2025 Emergency Department Summary Normal [facility] Eosinophil percentageOrdered By: Mellisa Cabrera on 03-10-2025 Eosinophils/100 WBC (Bld) 3.8 % 0-5 [facility] Epithelial cells.squamous LM Ql (Urine sed)Ordered By: Mellisa Cabrera on 03-10-2025 Epithelial cells.squamous LM.HPF (Urine sed) [#/Area] 0 /[HPF] 5-10 [facility] Erythrocyte distribution wid th (RBC) [Ratio]Ordered By: Mellisa Cabrera on 03-10-2025 Erythrocyte distribution width (RBC) [Entitic vol] 42.3 fL 35.1-43.9 [facility] Erythrocyte distribution wid th ratioOrdered By: Mellisa Cabrera on 03-10-2025 Erythrocyte distribution width (RBC) [Ratio] 12.8 % 11.6-14.6 [facility] Erythrocyte distribution wid th standard deviationOrdered By: Mellisa Cabrera on 03-10-2025 Erythrocyte distribution width (RBC) [Ratio] 42.3 fl 35.1-43.9 [facility] Estimation of creatinine julio cesar aranceOrdered By: Mellisa Cabrera on 03-10-2025 Estimated Creatinine Clearance Calc 51.73 ml/min 50-250 [facility] GFR/1.73 sq M.predicted kwame g non-blacks MDRD (S/P/Bld) [Vol rate/Area]Ordered By: Mellisa Cabrera on 03-10-2025 Estimated GFR (MDRD) Non-Af Amer 62 >60 [facility] Comment on above: mL/min/1.73m2 CKD-EP I Creatinine Equation (2020) Glomerular filtration rate ( GFR) estimation/1.73 sq m using serum, plasma, or whole bOrdered By: Mellisa Cabrera on 03-10-2025 GFR/1.73 sq M.predicted among non-blacks MDRD (S/P/Bld) [Vol rate/Area] 62 mL/min/{1.73_m2} >60 [facility] Comment on above: mL/min/1.73m2 CKD-EP I Creatinine Equation (2020) Glucose Ql (U)Ordered By: Amparo Cabrera on 03-10-2025 Urine Glucose (UA) Normal mg/dl Normal [facility] HIP, UNI W/ Pelvis 2-3 Views on 03-10-2025 HIP, UNI W/ Pelvis 2-3 Views Normal [facility] Hematocrit Auto (Bld) [Volum e fraction]Ordered By: Mellisa Cabrera on 03-10-2025 Hematocrit (Bld) [Volume fraction] 32.2 % Low 37-47 [facility] Hemoglobin measurementOrdere d By: Mellisa Cabrera on 03-10-2025 Hemoglobin (Bld) [Mass/Vol] 11.0 g/dL Low 12.0-15.0 [facility] Immature granulocytes/100 WB C Auto (Bld)Ordered By: Mellisa Cabrera on 03-10-2025 Immature granulocytes/100 WBC (Bld) 0.300 % 0.0-0.9 [facility] Comment on above: IG% - Immature Granu locytes (promyelocytes, myelocytes and metamyelocytes) > 1% indicates that a LEFT SHIFT is Present. Ketones Test strip Ql (U)Ord ered By: Mellisa Cabrera on 03-10-2025 Ketones Ql (U) Negative Negative [facility] Lymphocytes Auto (Unsp spec) [#/Vol]Ordered By: Mellisa Cabrera on 03-10-2025 Lymphocytes (Bld) [#/Vol] 1.61 10*3/uL 0.83-4.51 [facility] Lymphocytes/100 WBC Auto (Un sp spec)Ordered By: Mellisa Cabrera on 03-10-2025 Lymphocytes/100 WBC (Bld) 25.4 % 19-41 [facility] MCV (mean corpuscular volume ) determinationOrdered By: Mellisa Cabrera on 03-10-2025 MCV (RBC) [Entitic vol] 90.4 fL 81-99 [facility] Mean corpuscular hemoglobin (MCH) determinationOrdered By: Mellisa Cabrera on 03-10-2025 MCH (RBC) [Entitic mass] 30.9 pg 27.0-32.0 [facility] Mean corpuscular hemoglobin concentration (MCHC) determinationOrdered By: Mellisa Cabrera on 03-10-2025 MCHC (RBC) [Mass/Vol] 34.2 g/dL 32-36 [facility] Mean platelet volume determi nationOrdered By: Mellisa Cabrera on 03-10-2025 Platelet mean volume (Bld) [Entitic vol] 11.0 fL 6.2-12.0 [facility] Microscopic analysis of urin e for red blood cells (RBC)Ordered By: Mellisa Cabrera on 03-10-2025 Microscopic analysis of urine for red blood cells (RBC) 0 SEEN /hpf 0-5 [facility] Urine RBC 0 SEEN /hpf 0-5 [facility] Monocyte percentageOrdered B y: Mellisa Cabrera on 03-10-2025 Monocytes/100 WBC (Bld) 8.3 % 0-10 [facility] Mucus LM Ql (Urine sed)Order ed By: Mellisa Cabrera on 03-10-2025 Mucus Ql (Urine sed) 0 SEEN /hpf [facility] Neutrophil percentageOrdered By: Mellisa Cabrera on 03-10-2025 Neutrophils/100 WBC (Bld) 61.9 % 47-70 [facility] Nitrite Test strip Ql (U)Ord ered By: Mellisa Cabrera on 03-10-2025 Nitrite Ql (U) Negative Negative [facility] Nucleated red blood cell per centageOrdered By: Mellisa Cabrera on 03-10-2025 Nucleated RBC/100 WBC (Bld) [Ratio] 0 % 0-5 [facility] Platelet countOrdered By: Amparo Cabrera on 03-10-2025 Platelets (Bld) [#/Vol] 148 10*3/uL Low 150-450 [facility] Potassium (Unsp spec) [Mass/ Vol]Ordered By: Mellisa Cabrera on 03-10-2025 Potassium [Moles/Vol] 4.3 mmol/L 3.3-5.1 [facility] Potassium measurement (mass/ volume)Ordered By: Mellisa Cabrera on 03-10-2025 Potassium (Unsp spec) [Mass/Vol] 4.3 mmol/L 3.3-5.1 [facility] Protein Test strip Ql (U)Ord ered By: Mellisa Cabrera on 03-10-2025 Protein Ql (U) 15 mg/dl High Negative [facility] RBC Auto (Bld) [#/Vol]Ordere d By: Mellisa Cabrera on 03-10-2025 RBC (Bld) [#/Vol] 3.56 10*6/uL Low 4.2-5.4 [facility] Serum creatinine measurement (mass/volume)Ordered By: Mellisa Cabrera on 03-10-2025 Creatinine [Mass/Vol] 0.97 mg/dL 0.70-1.20 [facility] Serum glucose measurement (m ass/volume)Ordered By: Mellisa Cabrera on 03-10-2025 Glucose [Mass/Vol] 139 mg/dL High 70-99 [facility] Serum or plasma calcium loco urement (mass/volume)Ordered By: Mellisa Cabrera on 03-10-2025 Calcium [Mass/Vol] 9.1 mg/dL 7.6-11.0 [facility] Serum or plasma urea nitroge n measurement (mass/volume)Ordered By: Mellisa Cabrera on 03-10-2025 Urea nitrogen [Mass/Vol] 20 mg/dL High 4-19 [facility] Sodium levelOrdered By: Mellisa Cabrera on 03-10-2025 Sodium [Moles/Vol] 140 mmol/L 133-145 [facility] Squamous epithelial cells de tection in urine sediment by light microscopyOrdered By: Mellisa Cabrera on 03-10-2025 Epithelial cells.squamous LM Ql (Urine sed) 0 SEEN /hpf 5-10 [facility] Urinalysis, Completeon 03-10 WBC 0-5 SEEN Normal 0-5 [facility] Comment on above: Order Comment: HUNTER CTOR TO SPECIFY Performed By: #### L 400.0001 ####[facility] [address] [place], [address] BACTERIA 0 SEEN Normal None Seen [facility] Comment on above: Order Comment: HUNTER CTOR TO SPECIFY Performed By: #### L 400.0001 ####[facility] [address] [place], [address] EPI,SQUAMOUS 0 SEEN Normal - [facility] Comment on above: Order Comment: HUNTER CTOR TO SPECIFY Performed By: #### L 400.0001 ####[facility] [address] [place], [address] Mucus Ql (Urine sed) 0 SEEN Normal [facility] Comment on above: Order Comment: HUNTER CTOR TO SPECIFY Performed By: #### L 400.0001 ####[facility] [address] [place], [address] RBC 0 SEEN Normal 0-5 [facility] Comment on above: Order Comment: HUNTER CTOR TO SPECIFY Performed By: #### L 400.0001 ####[facility] [address] [place], [address] Urine blood detectionOrdered By: Mellisa Cabrera on 03-10-2025 Urine Occult Blood Negative Negative [facility] Urine clarityOrdered By: Pastora Cabrera on 03-10-2025 Clarity (U) Clear Clear [facility] Urine color determinationOrd ered By: Mellisa Cabrera on 03-10-2025 Color (U) Yellow Yellow [facility] Urine glucose detectionOrder ed By: Mellisa Cabrera on 03-10-2025 Glucose Ql (U) Normal mg/dl Normal [facility] Urine leukocyte esterase det ection by dipstickOrdered By: Mellisa Cabrera on 03-10-2025 Leukocyte esterase Test strip Ql (U) 500 /ul High Negative [facility] Urine pHOrdered By: Mellisa peng on 03-10-2025 pH (U) 6.0 [pH] 5.0 - 8.0 [facility] Urine sediment bacteria coun t by microscopy (number/high power field)Ordered By: Mellisa Cabrera on 03-10-2025 Bacteria LM.HPF (Urine sed) [#/Area] 0 /[HPF] None Seen [facility] Urine specific gravity measu rementOrdered By: Mellisa Cabrera on 03-10-2025 Specific gravity (U) [Rel density] 1.015 1.002-1.03 0 [facility] Urine urobilinogen measureme ntOrdered By: Mellisa Cabrera on 03-10-2025 Urobilinogen Ql (U) Normal mg/dl Normal [facility] Urobilinogen Ql (U)Ordered B y: Mellisa Cabrera on 03-10-2025 Urine Urobilinogen Normal mg/dl Normal [facility] White blood cell (WBC) count Ordered By: Mellisa Cabrera on 03-10-2025 WBC (Bld) [#/Vol] 6.4 10*3/uL 4.4-11.0 [facility] White blood cell countOrdere d By: Mellisa Cabrera on 03-10-2025 Urine WBC 0-5 SEEN /hpf 0-5 [facility] White blood cell count 0-5 SEEN /hpf 0-5 [facility] CNPNon 03-09-2025 CNPN Telephone (NRMDN) MANSI CARO ([id number]) 1955 F Date Time Provider Department 03/09/25 LEYLA MURPHY NRNMN During your visit today, we recorded the following information about you: Dipti Stewart 03/09/2025 12:16 PM Signed Spouse called inquiring status of RX for valbenazine (INGREZZA) 40 mg capsule. Informed Spouse that order was signed on 02/27/2025. Order has been faxed to [facility]: [phone]. Spouse provided phone number for pharmacy ([phone]) to follow up on this request. Leyla Zamudio MD 03/12/2025 7:42 AM Signed Notified by [facility] spec pharmacy Ingrezza is not on her formulary. Going to prescribe Austedo XR instead. This is low dose. If not effective please let us know and we can ramp up The following approved medication requests have been transmitted electronically. Requested Prescriptions Signed Prescriptions Disp Refills deutetrabenazine XR (AUSTEDO XR) 6 mg tablet 30 tablet 5 Sig: Take 1 tablet by mouth once daily. Authorizing Provider: LEYLA MURPHY MD Appleby, Kristin, MD 03/12/2025 7:42 AM Signed Addended by: LEYLA MURPHY on: 03/12/2025 07:42 AM Modules accepted: Orders Allergies As of Date: 03/09/2025 Noted Allergy Reaction LIPITOR (ATORVASTATIN CALCIUM) 04/03/2010 Comments: Heart racing; 07/04/10 patient states that she had started a lot of medication at this time and the she did not have a true allergic reaction and is willing to rechallenge [facility] RN Date Reviewed: 02/27/2025 Reviewed by: Leyla Murphy MD - Fully Assessed Reason for Visit: Orders [681] Cmt: valbenazine (INGREZZA) 40 mg capsule Order(s):deutetrabenazine XR (AUSTEDO XR) 6 mg tabletTake 1 tablet by mouth once daily.Disp: 30 tabletRfl: 5 Prescriptions as of 03/12/2025 - deutetrabenazine XR (AUSTEDO XR) 6 mg tablet Take 1 tablet by mouth once daily. - Acetaminophen 500 mg cap 500 mg. - albuterol sulfate 90 mcg/actuation aebs - oxyCODONE-acetaminophen (PERCOCET) 5-325 mg tablet 1 TABLET ORAL EVERY 6 HOURS NEEDED FOR SEVERE PAIN 30 DAYS - lamoTRIgine (LAMICTAL) 100 mg tablet - LINZESS 145 mcg capsule Take 145 mcg by mouth every morning. - polyethylene glycol 3350 (MIRALAX) 17 gram/dose powder - ferrous sulfate (IRON) 325 mg (65 mg iron) tablet Take 325 mg by mouth once daily. - hyoscyamine sulfate 0.125 mg ODT Take 0.125 mg by mouth three times a day. - Docusate Sodium 100 mg tab Take by mouth once daily. - polyethylene glycol 400 (BLINK TEARS OPHTHALMIC) Use in eyes. - clopidogrel (PLAVIX) 75 mg tablet Take 75 mg by mouth once daily. Takes MWF - metoprolol succinate ER (TOPROL XL) 25 mg 24 hr tablet Take 25 mg by mouth once daily. - cholecalciferol (VITAMIN D3) 1,000 unit tab tablet Take 1,000 Units by mouth once daily. - baclofen 5 mg tablet 1 tab po qid. Do not abruptly stop if at high dose, risk for withdrawal seizures. - clonazePAM (KLONOPIN) 1 mg tablet Take 1 mg by mouth daily at bedtime. - furosemide (LASIX) 20 mg tablet as needed. - traZODone (DESYREL) 50 mg tablet Take 50 mg by mouth as needed. - BABY ASPIRIN ORAL Take 81 mg by mouth every other day. - pantoprazole DR (PROTONIX) 40 mg tablet Take 1 tablet by mouth twice daily. - metFORMIN (GLUCOPHAGE) 500 mg tablet Take 1 tablet by mouth twice daily. - rosuvastatin (CRESTOR) 5 mg ORAL Tab 1 qd Meds Comments as of 07/10/2021: Patient also takes Trazadone 50mg for sleep PRN Problem List As Of Date 03/09/2025 Noted Resolved Acute, but Ill-Defined, Cerebrovascular Disease*08/14/2009 Unspecified Peripheral Vertigo [H81.399] 01/14/2010 Vertigo of Central Origin [H81.4] 01/14/2010 Cholelithiasis [K80.20] 12/26/2014 Personal history of colonic polyps [Z86.0100] 02/21/2015 02/21/2015 Parkinsonism (HCC) [G20.C] 06/25/2022 Spastic hemiparesis (HCC) [G81.10] 05/13/2023 Prescriptions ordered this encounter Disp Refills Start End AUSTEDO XR 6 MG TABLET,EXTENDED RELE* 30 t* 5 03/12/2025 09/08/2025 Class: [facility] RX Route: ORAL Sig: Take 1 tablet by mouth once daily. Medications Discontinued During This Encounter Prescriptions - valbenazine (INGREZZA) 40 mg capsule (Discontinued) Take 1 capsule by mouth once daily. Encounter Status:Closed by DIPTI STEWART on 03/09/25 [facility] Valerie 03-01-2025 [facility] Telephone (AKI) MANSI CARO ([id number]) 1955 F Date Time Provider Department 03/01/25 KALEN CASEY During your visit today, we recorded the following information about you: Kalen Casey RT(R) 03/01/2025 3:28 PM Signed Hello, You have ordered an MRI on this patient with an implanted cardiac device. To clear the patient, as per our policy, patient will need a 2 view CXR prior to MRI scan. CXR is used to confirm there are no broken or abandoned leads. Thank you, Kalen Russell)(MR)[facility] MRI Safety Team Leyla Murphy MD 03/02/2025 3:01 PM Signed Addended by: LEYLA MURPHY on: 03/02/2025 03:01 PM Modules accepted: Orders Allergies As of Date: 03/01/2025 Noted Allergy Reaction LIPITOR (ATORVASTATIN CALCIUM) 04/03/2010 Comments: Heart racing; 07/04/10 patient states that she had started a lot of medication at this time and the she did not have a true allergic reaction and is willing to rechallenge [facility] RN Date Reviewed: 02/27/2025 Reviewed by: Leyla Murphy MD - Fully Assessed Primary Visit Diagnosis:Presence of cardiac pacemaker [Z95.0] Order(s):XR CHEST 2V FRONTAL/LAT [[id number]] Order #: [id number] FUTURE Prescriptions as of 03/02/2025 - Acetaminophen 500 mg cap 500 mg. - albuterol sulfate 90 mcg/actuation aebs - oxyCODONE-acetaminophen (PERCOCET) 5-325 mg tablet 1 TABLET ORAL EVERY 6 HOURS NEEDED FOR SEVERE PAIN 30 DAYS - lamoTRIgine (LAMICTAL) 100 mg tablet - LINZESS 145 mcg capsule Take 145 mcg by mouth every morning. - polyethylene glycol 3350 (MIRALAX) 17 gram/dose powder - ferrous sulfate (IRON) 325 mg (65 mg iron) tablet Take 325 mg by mouth once daily. - hyoscyamine sulfate 0.125 mg ODT Take 0.125 mg by mouth three times a day. - Docusate Sodium 100 mg tab Take by mouth once daily. - polyethylene glycol 400 (BLINK TEARS OPHTHALMIC) Use in eyes. - clopidogrel (PLAVIX) 75 mg tablet Take 75 mg by mouth once daily. Takes MWF - valbenazine (INGREZZA) 40 mg capsule Take 1 capsule by mouth once daily. - metoprolol succinate ER (TOPROL XL) 25 mg 24 hr tablet Take 25 mg by mouth once daily. - cholecalciferol (VITAMIN D3) 1,000 unit tab tablet Take 1,000 Units by mouth once daily. - baclofen 5 mg tablet 1 tab po qid. Do not abruptly stop if at high dose, risk for withdrawal seizures. - clonazePAM (KLONOPIN) 1 mg tablet Take 1 mg by mouth daily at bedtime. - furosemide (LASIX) 20 mg tablet as needed. - traZODone (DESYREL) 50 mg tablet Take 50 mg by mouth as needed. - BABY ASPIRIN ORAL Take 81 mg by mouth every other day. - pantoprazole DR (PROTONIX) 40 mg tablet Take 1 tablet by mouth twice daily. - metFORMIN (GLUCOPHAGE) 500 mg tablet Take 1 tablet by mouth twice daily. - rosuvastatin (CRESTOR) 5 mg ORAL Tab 1 qd Meds Comments as of 07/10/2021: Patient also takes Trazadone 50mg for sleep PRN Problem List As Of Date 03/01/2025 Noted Resolved Acute, but Ill-Defined, Cerebrovascular Disease*08/14/2009 Unspecified Peripheral Vertigo [H81.399] 01/14/2010 Vertigo of Central Origin [H81.4] 01/14/2010 Cholelithiasis [K80.20] 12/26/2014 Personal history of colonic polyps [Z86.0100] 02/21/2015 02/21/2015 Parkinsonism (HCC) [G20.C] 06/25/2022 Spastic hemiparesis (HCC) [G81.10] 05/13/2023 Encounter Status:Closed by KALEN CASEY on 03/01/25 [facility] CNPN Telephone ([facility]) MANSI CARO ([id number]) 1955 F Date Time Provider Department 03/01/25 LEYLA MURPHY During your visit today, we recorded the following information about you: Allergies As of Date: 03/01/2025 Noted Allergy Reaction LIPITOR (ATORVASTATIN CALCIUM) 04/03/2010 Comments: Heart racing; 07/04/10 patient states that she had started a lot of medication at this time and the she did not have a true allergic reaction and is willing to rechallenge [facility] RN Date Reviewed: 02/27/2025 Reviewed by: Leyla Murphy MD - Fully Assessed Prescriptions as of 03/01/2025 - Acetaminophen 500 mg cap 500 mg. - albuterol sulfate 90 mcg/actuation aebs - oxyCODONE-acetaminophen (PERCOCET) 5-325 mg tablet 1 TABLET ORAL EVERY 6 HOURS NEEDED FOR SEVERE PAIN 30 DAYS - lamoTRIgine (LAMICTAL) 100 mg tablet - LINZESS 145 mcg capsule Take 145 mcg by mouth every morning. - polyethylene glycol 3350 (MIRALAX) 17 gram/dose powder - ferrous sulfate (IRON) 325 mg (65 mg iron) tablet Take 325 mg by mouth once daily. - hyoscyamine sulfate 0.125 mg ODT Take 0.125 mg by mouth three times a day. - Docusate Sodium 100 mg tab Take by mouth once daily. - polyethylene glycol 400 (BLINK TEARS OPHTHALMIC) Use in eyes. - clopidogrel (PLAVIX) 75 mg tablet Take 75 mg by mouth once daily. Takes MWF - valbenazine (INGREZZA) 40 mg capsule Take 1 capsule by mouth once daily. - metoprolol succinate ER (TOPROL XL) 25 mg 24 hr tablet Take 25 mg by mouth once daily. - cholecalciferol (VITAMIN D3) 1,000 unit tab tablet Take 1,000 Units by mouth once daily. - baclofen 5 mg tablet 1 tab po qid. Do not abruptly stop if at high dose, risk for withdrawal seizures. - clonazePAM (KLONOPIN) 1 mg tablet Take 1 mg by mouth daily at bedtime. - furosemide (LASIX) 20 mg tablet as needed. - traZODone (DESYREL) 50 mg tablet Take 50 mg by mouth as needed. - BABY ASPIRIN ORAL Take 81 mg by mouth every other day. - pantoprazole DR (PROTONIX) 40 mg tablet Take 1 tablet by mouth twice daily. - metFORMIN (GLUCOPHAGE) 500 mg tablet Take 1 tablet by mouth twice daily. - rosuvastatin (CRESTOR) 5 mg ORAL Tab 1 qd Meds Comments as of 07/10/2021: Patient also takes Trazadone 50mg for sleep PRN Problem List As Of Date 03/01/2025 Noted Resolved Acute, but Ill-Defined, Cerebrovascular Disease*08/14/2009 Unspecified Peripheral Vertigo [H81.399] 01/14/2010 Vertigo of Central Origin [H81.4] 01/14/2010 Cholelithiasis [K80.20] 12/26/2014 Personal history of colonic polyps [Z86.0100] 02/21/2015 02/21/2015 Parkinsonism (HCC) [G20.C] 06/25/2022 Spastic hemiparesis (HCC) [G81.10] 05/13/2023 Encounter Status:Closed by KALEN CASEY on 03/01/25 [facility] CNOVon 02-27-2025 CNOV Office Visit (NRMDN) MANSI CARO ([id number]) 1955 F Date Time Provider Department 02/27/25 3:30 PM LEYLA MURPHY NRLAKIA During your visit today, we recorded the following information about you: Weight 62 kg Leyla Murphy MD 02/27/2025 4:44 PM Addendum It was a pleasure to see you today. We addressed the following diagnoses: Essential tremor (primary encounter diagnosis) Dyskinesia, tardive My recommendations are as follows: - Start taking Ingrezza 40 mg daily for mouth movements; prescription sent to [facility]. Once this is controlled we can start working on the tremors. - Continue other current medications as discussed. - Undergo a brain MRI; scheduling will be coordinated to accommodate your cardiac implant. - Monitor for any changes in symptoms or side effects from new medication and report them. Movement Disorders Medication Schedule: Medications Return at or around: 05/29/25 If there are any concerns before your next visit, please call or you can send a message through [employer]. You can also now schedule and select appointments through [employer]. MD Jeffrey Marquez Kristin, MD 02/28/2025 9:12 AM Signed [facility] - FOLLOW UP EVALUATION The patient consented to the use of [employer] software for draft documentation of the visit consistent with [facility]?s Notice of Privacy Practices. Jesus Manuel Freitas DO, DO [address] [facility] [id number] Dear Jesus Manuel Freitas DO DO: I had the pleasure of seeing Ms. Caro for follow-up today. As you know she is a 70 year old right-handed female with a history of left hand tremor since 2021. Subjective Previous Plan- 10/20/2023 Visit: Please start PT Referral for OT Follow up in 3-6 months Interval History: Mansi is a 70-year-old female with a history of cerebral palsy, ischemic stroke, and parkinsonism presenting for evaluation of worsening tremors and spasticity. She is accompanied by her , who provides additional history. She is transferring care from Dr. Ramirez due to distance. Mansi has a history of cerebral palsy with right hemibody spasticity and motor delay requiring right ankle bracing. She also has a history of strabismus. In 2008, she experienced an ischemic stroke with multifocal left frontal and parietal infarcts, resulting in persistent right-sided spasticity. She has been managing spasticity with baclofen 5 mg three times daily, though she reports minimal improvement. She follows with Dr. Gusman. She has been experiencing an intermittent postural and action tremor in her left hand since 2021, which has worsened over time. The tremor is more pronounced during activities such as eating and writing and has recently started affecting her left shoulder. She reports difficulty with dexterity in her left hand. She still uses the right hand to eat and write. The tremor persists despite discontinuing Abilify, which initially improved symptoms. She did not tolerate Sinemet, which was prescribed previously, as it did not provide symptom relief. She does not report any factors that worsen or alleviate the tremor, though she notes that cannabis use during a visit to [place] temporarily alleviated her symptoms. She reports difficulty with balance and has experienced several falls over the past three months, often when standing up quickly or rushing to the bathroom. She sometimes uses a walker at home, depending on the day. She reports occasional difficulty swallowing solids but does not endorse coughing after drinking liquids. She notes a decreased sense of smell, which her believes began after a hospitalization in June 2024 for ischemic colitis. She reports memory loss and forgetfulness, such as using the wrong utensil while eating. She does not endorse hallucinations or acting out dreams. She reports feeling depressed and anxious, stating that she often wants to stay in bed and does not want to do anything. Her notes that she sleeps until 11:00 AM and then wants to go back to bed. She has not participated in physical therapy since her hospitalization in June. She reports dry mouth and involuntary mouth and tongue movements, which she finds bothersome. She has been using biotene for the dryness but finds it provides only temporary relief. She has a history of dental work, including full upper and lower implants over the past 18 months which coincides with the abnormal movements. Movement Disorders Medications Schedule - as of the start of the visit: Medications Questionnaires: In addition, the following areas that may be affected by abnormal involuntary movements were evaluated: Daily activities Difficulties with eating: Yes (mild) Difficulties in dressing: Yes (mild) Difficulties with hygiene activities: Yes (more content not included)... [facility] Telephone (NRMDN) MANSI CARO ([id number]) 1955 F Date Time Provider Department 02/27/25 LEYLA MURPHY During your visit today, we recorded the following information about you: Dipti Stewart 02/27/2025 5:05 PM Addendum Patient's spouse reports that Patient has a HEAD BELLH[employer] CAPTAIN-D implant (Cardiac Resynchronization Therapy with Defibrillator). Per scheduling protocol, staff message forwarded to Imaging Implants pool to contact Patient for appointment coordination/scheduling. Patient/Spouse will be contacted within 4 business days. Dipti Stewart Allergies As of Date: 02/27/2025 Noted Allergy Reaction LIPITOR (ATORVASTATIN CALCIUM) 04/03/2010 Comments: Heart racing; 07/04/10 patient states that she had started a lot of medication at this time and the she did not have a true allergic reaction and is willing to rechallenge [facility] Date Reviewed: 02/27/2025 Reviewed by: Leyla Murphy MD - Fully Assessed Reason for Visit: Appointment [186] Cmt: MRI Brain WO IVCON Prescriptions as of 02/27/2025 - Acetaminophen 500 mg cap 500 mg. - albuterol sulfate 90 mcg/actuation aebs - oxyCODONE-acetaminophen (PERCOCET) 5-325 mg tablet 1 TABLET ORAL EVERY 6 HOURS NEEDED FOR SEVERE PAIN 30 DAYS - lamoTRIgine (LAMICTAL) 100 mg tablet - LINZESS 145 mcg capsule Take 145 mcg by mouth every morning. - polyethylene glycol 3350 (MIRALAX) 17 gram/dose powder - ferrous sulfate (IRON) 325 mg (65 mg iron) tablet Take 325 mg by mouth once daily. - hyoscyamine sulfate 0.125 mg ODT Take 0.125 mg by mouth three times a day. - Docusate Sodium 100 mg tab Take by mouth once daily. - polyethylene glycol 400 (BLINK TEARS OPHTHALMIC) Use in eyes. - clopidogrel (PLAVIX) 75 mg tablet Take 75 mg by mouth once daily. Takes MWF - valbenazine (INGREZZA) 40 mg capsule Take 1 capsule by mouth once daily. - metoprolol succinate ER (TOPROL XL) 25 mg 24 hr tablet Take 25 mg by mouth once daily. - cholecalciferol (VITAMIN D3) 1,000 unit tab tablet Take 1,000 Units by mouth once daily. - baclofen 5 mg tablet 1 tab po qid. Do not abruptly stop if at high dose, risk for withdrawal seizures. - clonazePAM (KLONOPIN) 1 mg tablet Take 1 mg by mouth daily at bedtime. - furosemide (LASIX) 20 mg tablet as needed. - traZODone (DESYREL) 50 mg tablet Take 50 mg by mouth as needed. - BABY ASPIRIN ORAL Take 81 mg by mouth every other day. - pantoprazole DR (PROTONIX) 40 mg tablet Take 1 tablet by mouth twice daily. - metFORMIN (GLUCOPHAGE) 500 mg tablet Take 1 tablet by mouth twice daily. - rosuvastatin (CRESTOR) 5 mg ORAL Tab 1 qd Meds Comments as of 07/10/2021: Patient also takes Trazadone 50mg for sleep PRN Problem List As Of Date 02/27/2025 Noted Resolved Acute, but Ill-Defined, Cerebrovascular Disease*08/14/2009 Unspecified Peripheral Vertigo [H81.399] 01/14/2010 Vertigo of Central Origin [H81.4] 01/14/2010 Cholelithiasis [K80.20] 12/26/2014 Personal history of colonic polyps [Z86.0100] 02/21/2015 02/21/2015 Parkinsonism (HCC) [G20.C] 06/25/2022 Spastic hemiparesis (HCC) [G81.10] 05/13/2023 Encounter Status:Closed by DIPTI STEWART on 02/27/25 Normal [facility] Gastroenterology Visit Repor ton 02-14-2025 Gastroenterology Visit Report Normal [facility] [employer] Office Visit Reporton 02-13-2025 [employer] [employer] Maintenance Office Visit Report Normal [facility] 36on 01-28-2025 36 S: Patient's spoke with [facility] nurse regarding medication concern B: Onset of symptoms/concern was seen in the office 01/23/25. Spouse calling today thought the pharmacy needed clarification on the prescription and that maybe an oral antibiotic was called into the pharmacy. A: was at the pharmacy today and the Pharmacist states they had a question and the Patient's was thinking that there maybe was a second medication that was going to be ordered. states he will call back with concerns. Feels her pain is not improving Denies fevers. R: AMY RN called the pharmacy Pharmacy states they have no questions the insurance didn't approve the Ciprofloxacin-dexamethasone suspension Neomycin -Polymyxin HC 4 drops into the affected ear 3 times a day was filled and picked up. CAC RN relayed the message back to the . Patient's understands care advice. No further needs at this time. Patient's instructed to call back with new or worsening symptoms. Reason for Disposition [1] Caller has NON-URGENT medicine question about med that PCP prescribed AND [2] triager unable to answer question Protocols used: Medication Question [id number] Normal [facility] Erythropoietinon 01-24-2025 ERYTHROPOIETIN 10.1 mIU/mL Normal 2.6-18.5 [facility] Comment on above: Result Comment: [employer] DxI 800 Immunoassay SystemValues obtained with different assay methods or kits cannotbe used interchangeably. Results cannot be interpreted asabsolute evidence of the presence or absence of malignantdisease.Performed at: - [facility] [id number] Director: Bulmaro Nesbitt PhD, Phone: [phone] Performed By: #### L 100.9950, L3100.1350, L503.6550, L503.6030, L500.2500, L100.0100 ####[facility] [address] [place], [address] Oncology Visit Reporton Oncology Visit Report Normal [facility] Absolute lymphocyte countOrd ered By: [facility] Earnest on 01-22-2025 Lymphocytes Auto (Unsp spec) [#/Vol] 2.11 10*3/uL 0.83-4.51 [facility] Absolute neutrophil countOrd ered By: [facility] Neutrophils (Bld) [#/Vol] 4.9 10*3/uL 2.0-7.7 [facility] Automated lymphocyte count a s percentage of total leukocytesOrdered By: Luigi Tinoco on 01-22-2025 Lymphocytes/100 WBC Auto (Unsp spec) 27.6 % 19-41 [facility] BUN/creatinine ratioOrdered By: [facility] on 01-22-2025 Urea nitrogen/Creatinine [Mass ratio] 16.9 mg/mg 10- [facility] Basic Metabolic Profile (BMP )on 01-22-2025 Anion gap [Moles/Vol] 9 mmol/L Normal 5-15 [facility] Comment on above: Performed By: #### L 100.9950, L3100.1350, L503.6550, L503.6030, L500.2500, L100.0100 ####[facility] [id number] [place], [address] BUN/CRE 16.9 RATIO Normal - [facility] Comment on above: Performed By: #### L 100.9950, L3100.1350, L503.6550, L503.6030, L500.2500, L100.0100 ####[facility] [address] [place], [address] Calcium [Mass/Vol] 9.1 mg/dL Normal 7.6-11.0 [facility] Comment on above: Performed By: #### L 100.9950, L3100.1350, L503.6550, L503.6030, L500.2500, L100.0100 ####[facility] [id number] [place], [address] Chloride [Moles/Vol] 103 mmol/L Normal 96-108 [facility] Comment on above: Performed By: #### L 100.9950, L3100.1350, L503.6550, L503.6030, L500.2500, L100.0100 ####[facility] [address] [place], [address] CO2 [Moles/Vol] 27.6 mmol/L Normal 22.0-29.0 [facility] Comment on above: Performed By: #### L 100.9950, L3100.1350, L503.6550, L503.6030, L500.2500, L100.0100 ####[facility] [address] [place], [address] Creatinine [Mass/Vol] 1.17 mg/dL Normal 0.70-1.20 [facility] Comment on above: Performed By: #### L 100.9950, L3100.1350, L503.6550, L503.6030, L500.2500, L100.0100 ####[facility] [address] [place], [address] ECRCL 40.81 ml/min Low 50-250 [facility] Comment on above: Performed By: #### L 100.9950, L3100.1350, L503.6550, L503.6030, L500.2500, L100.0100 ####[facility] [address] [place], [address] GFR/1.73 sq M.predicted among non-blacks MDRD (S/P/Bld) [Vol rate/Area] 50 mL/min/{1.73_m2} Low >60 [facility] Comment on above: Result Comment: mL/m in/1.73m2 CKD-EPI Creatinine Equation (2020) Performed By: #### L 100.9950, L3100.1350, L503.6550, L503.6030, L500.2500, L100.0100 ####[facility] [address] [place], [address] Glucose [Mass/Vol] 207 mg/dL High 70-99 [facility] Comment on above: Performed By: #### L 100.9950, L3100.1350, L503.6550, L503.6030, L500.2500, L100.0100 ####[facility] [address] [place], [address] Potassium [Moles/Vol] 4.3 mmol/L Normal 3.3-5.1 [facility] [facility] Comment on above: Performed By: #### L 100.9950, L3100.1350, L503.6550, L503.6030, L500.2500, L100.0100 ####[facility] [address] [place], [address] Sodium [Moles/Vol] 140 mmol/L Normal 133-145 [facility] Comment on above: Performed By: #### L 100.9950, L3100.1350, L503.6550, L503.6030, L500.2500, L100.0100 ####[facility] [address] [place], [address] Urea nitrogen [Mass/Vol] 20 mg/dL High 4-19 [facility] Comment on above: Performed By: #### L 100.9950, L3100.1350, L503.6550, L503.6030, L500.2500, L100.0100 ####[facility] [address] [place], [address] Basophil percentageOrdered B y: Luigi Tinoco on 01-22-2025 Basophils/100 WBC (Bld) 0.5 % 0-1 [facility] CBC W/Diff, Automatedon Absolute Lymph 2.11 X10 3/uL Normal 0.83-4.51 [facility] Comment on above: Performed By: #### L 100.9950, L3100.1350, L503.6550, L503.6030, L500.2500, L100.0100 ####[facility] [address] [place], [address] Absolute Neut 4.9 X10 3/uL Normal 2.0-7.7 [facility] Comment on above: Performed By: #### L 100.9950, L3100.1350, L503.6550, L503.6030, L500.2500, L100.0100 ####[facility] [address] [place], [address] Basophils/100 WBC (Bld) 0.5 % Normal 0-1 [facility] Comment on above: Performed By: #### L 100.9950, L3100.1350, L503.6550, L503.6030, L500.2500, L100.0100 ####[facility] [address] [place], [address] Eosinophils/100 WBC (Bld) 1.3 % Normal 0-5 [facility] Comment on above: Performed By: #### L 100.9950, L3100.1350, L503.6550, L503.6030, L500.2500, L100.0100 ####[facility] [address] [place], [address] Erythrocyte distribution width (RBC) [Ratio] 12.5 % Normal 11.6-14.6 [facility] Comment on above: Performed By: #### L 100.9950, L3100.1350, L503.6550, L503.6030, L500.2500, L100.0100 ####[facility] [address] [place], [address] Hematocrit (Bld) [Volume fraction] 36.8 % Low 37-47 [facility] Comment on above: Performed By: #### L 100.9950, L3100.1350, L503.6550, L503.6030, L500.2500, L100.0100 ####[facility] [address] [place], [address] Hemoglobin (Bld) [Mass/Vol] 11.8 g/dL Low 12.0-15.0 [facility] Comment on above: Performed By: #### L 100.9950, L3100.1350, L503.6550, L503.6030, L500.2500, L100.0100 ####[facility] [address] [place], [address] IG% 0.400 Normal 0.0-0.9 [facility] Comment on above: Result Comment: IG% - Immature Granulocytes (promyelocytes, myelocytes andmetamyelocytes) > 1% indicates that a LEFT SHIFT is Present. Performed By: #### L 100.9950, L3100.1350, L503.6550, L503.6030, L500.2500, L100.0100 ####[facility] [address] [place], [address] Lymphocytes/100 WBC (Bld) 27.6 % Normal 19-41 [facility] Comment on above: Performed By: #### L 100.9950, L3100.1350, L503.6550, L503.6030, L500.2500, L100.0100 ####[facility] [address] [place], [address] MCH (RBC) [Entitic mass] 30.3 pg Normal 27.0-32.0 [facility] Comment on above: Performed By: #### L 100.9950, L3100.1350, L503.6550, L503.6030, L500.2500, L100.0100 ####[facility] [address] [place], [address] MCHC (RBC) [Mass/Vol] 32.1 g/dL Normal 32-36 [facility] Comment on above: Performed By: #### L 100.9950, L3100.1350, L503.6550, L503.6030, L500.2500, L100.0100 ####[facility] [address] [place], [address] MCV (RBC) [Entitic vol] 94.4 fL Normal 81-99 [facility] Comment on above: Performed By: #### L 100.9950, L3100.1350, L503.6550, L503.6030, L500.2500, L100.0100 ####[facility] [address] [place], [address] Monocytes/100 WBC (Bld) 6.0 % Normal 0-10 [facility] Comment on above: Performed By: #### L 100.9950, L3100.1350, L503.6550, L503.6030, L500.2500, L100.0100 ####[facility] [address] [place], [address] Neutrophils/100 WBC (Bld) 64.2 % Normal 47-70 [facility] Comment on above: Performed By: #### L 100.9950, L3100.1350, L503.6550, L503.6030, L500.2500, L100.0100 ####[facility] [address] [place], [address] Nucleated RBC (Bld) [#/Vol] 0 10*3/uL Normal 0-5 [facility] Comment on above: Performed By: #### L 100.9950, L3100.1350, L503.6550, L503.6030, L500.2500, L100.0100 ####[facility] [address] [place], [address] Platelet mean volume (Bld) [Entitic vol] 10.8 fL Normal 6.2-12.0 [facility] Comment on above: Performed By: #### L 100.9950, L3100.1350, L503.6550, L503.6030, L500.2500, L100.0100 ####[facility] [address] [place], [address] Platelets (Bld) [#/Vol] 143 10*3/uL Low 150-450 [facility] Comment on above: Performed By: #### L 100.9950, L3100.1350, L503.6550, L503.6030, L500.2500, L100.0100 ####[facility] [address] [place], [address] RBC (Bld) [#/Vol] 3.90 10*6/uL Low 4.2-5.4 [facility] Comment on above: Performed By: #### L 100.9950, L3100.1350, L503.6550, L503.6030, L500.2500, L100.0100 ####[facility] [address] [place], [address] RDW SD 43.6 fl Normal 35.1-43.9 [facility] Comment on above: Performed By: #### L 100.9950, L3100.1350, L503.6550, L503.6030, L500.2500, L100.0100 ####[facility] [address] [place], [place], [address] WBC (Bld) [#/Vol] 7.7 10*3/uL Normal 4.4-11.0 [facility] Comment on above: Performed By: #### L 100.9950, L3100.1350, L503.6550, L503.6030, L500.2500, L100.0100 ####[facility] [address] [facility] [place], [address] Calculated total iron bindin g capacityOrdered By: [facility] Tin[facility] on 01-22-2025 Total Iron Binding Capacity 248 ug/dL Low 250-450 [facility] Carbon dioxide measurementOr dered By: [facility] on 01-22-2025 CO2 [Moles/Vol] 27.6 mmol/L 22.0-29.0 [facility] Chloride measurementOrdered By: [facility] Earnest on 01-22-2025 Chloride [Moles/Vol] 103 mmol/L 96-108 [facility] Eosinophil percentageOrdered By: [facility] Earnest on 01-22-2025 Eosinophils/100 WBC (Bld) 1.3 % 0-5 [facility] Erythrocyte distribution wid th (RBC) [Ratio]Ordered By: [facility] Earnest on 01-22-2025 Erythrocyte distribution width (RBC) [Entitic vol] 43.6 fL 35.1-43.9 [facility] Erythrocyte distribution wid th ratioOrdered By: [facility] Earnest on 01-22-2025 Erythrocyte distribution width (RBC) [Ratio] 12.5 % 11.6-14.6 [facility] Erythrocyte distribution wid th standard deviationOrdered By: [facility] Earnest on 01-22-2025 Erythrocyte distribution width (RBC) [Ratio] 43.6 fl 35.1-43.9 [facility] Erythropoietin (EPO) QnOrder ed By: Luigi Tinoco on 01-22-2025 Erythropoietin 10.1 mIU/mL 2.6-18.5 [facility] Comment on above: Volve el DxI 800 Immunoassay SystemValues obtained with different assay methods or kits cannotbe used interchangeably. Results cannot be interpreted asabsolute evidence of the presence or absence of malignantdisease.Performed at: [facility] [address] [place], [place] [id number] Director: Bulmaro Nesbitt PhD, Phone: [phone] Estimation of creatinine julio cesar aranceOrdered By: Luigi Tinoco on 01-22-2025 Estimated Creatinine Clearance Calc 40.81 ml/min Low 50-250 [facility] Ferritinon 01-22-2025 Ferritin [Mass/Vol] 95 ng/mL Normal 22-378 [facility] Comment on above: Performed By: #### L 100.9950, L3100.1350, L503.6550, L503.6030, L500.2500, L100.0100 ####[facility] [address] [place], [place], [address] GFR/1.73 sq M.predicted kwame g non-blacks MDRD (S/P/Bld) [Vol rate/Area]Ordered By: Luigi Tinoco on 01-22-2025 Estimated GFR (MDRD) Non-Af Amer 50 Low >60 [facility] Comment on above: mL/min/1.73m2 CKD-EP I Creatinine Equation (2020) Glomerular filtration rate ( GFR) estimation/1.73 sq m using serum, plasma, or whole bOrdered By: Luigi Tinoco on 01-22-2025 GFR/1.73 sq M.predicted among non-blacks MDRD (S/P/Bld) [Vol rate/Area] 50 mL/min/{1.73_m2} Low >60 [facility] Comment on above: mL/min/1.73m2 CKD-EP I Creatinine Equation (2020) Hematocrit Auto (Bld) [Volum e fraction]Ordered By: Luigi Tinoco on 01-22-2025 Hematocrit (Bld) [Volume fraction] 36.8 % Low 37-47 [facility] Hemoglobin (Reticulocytes) [ Entitic mass]Ordered By: Luigi Tinoco on 01-22-2025 Reticulocyte Hemoglobin Equivalent 35.1 pg High 30-35 [facility] Hemoglobin measurementOrdere d By: Luigi Tinoco on 01-22-2025 Hemoglobin (Bld) [Mass/Vol] 11.8 g/dL Low 12.0-15.0 [facility] Immature granulocytes/100 WB C Auto (Bld)Ordered By: Luigi Tinoco on 01-22-2025 Immature granulocytes/100 WBC (Bld) 0.400 % 0.0-0.9 [facility] Comment on above: IG% - Immature Granu locytes (promyelocytes, myelocytes and metamyelocytes) > 1% indicates that a LEFT SHIFT is Present. Immature reticulocyte fracti onOrdered By: Luigi Tinoco on 01-22-2025 Immature Reticulocyte Fraction 8.80 % 3.00-15.90 [facility] Iron (Unsp spec) [Mass/Mass] Ordered By: Luigi Tinoco on 01-22-2025 Iron [Mass/Vol] 74 ug/dL 50-170 [facility] Iron measurement (mass/mass) Ordered By: Luigi Tinoco on 01-22-2025 Iron (Unsp spec) [Mass/Mass] 74 ug/dL 50-170 [facility] Iron saturation [Mass fracti on]Ordered By: Luigi Tinoco on 01-22-2025 Iron Saturation 30.0 % 15.0-55.0 [facility] Iron+Iron Binding Capacityon 01-22-2025 Iron [Mass/Vol] 74 ug/dL Normal 50-170 [facility] Comment on above: Performed By: #### L 100.9950, L3100.1350, L503.6550, L503.6030, L500.2500, L100.0100 ####[facility] [address] [place] [place], [place], [id number] IRON SATURATION 30.0 Normal 15.0-55.0 [facility] Comment on above: Performed By: #### L 100.9950, L3100.1350, L503.6550, L503.6030, L500.2500, L100.0100 ####[facility] [address] [place], [place], [phone] TIBC 248 ug/dL Low 250-450 [facility] Comment on above: Performed By: #### L 100.9950, L3100.1350, L503.6550, L503.6030, L500.2500, L100.0100 ####[facility] [address] [place], [address] UIBC 174 ug/dL Low 228-428 [facility] Comment on above: Performed By: #### L 100.9950, L3100.1350, L503.6550, L503.6030, L500.2500, L100.0100 ####[facility] [address] [place], [address] Lymphocytes Auto (Unsp spec) [#/Vol]Ordered By: Luigi Tinoco on 01-22-2025 Lymphocytes (Bld) [#/Vol] 2.11 10*3/uL 0.83-4.51 [facility] Lymphocytes/100 WBC Auto (Un sp spec)Ordered By: Luigi Tinoco on 01-22-2025 Lymphocytes/100 WBC (Bld) 27.6 % 19-41 [facility] MCV (mean corpuscular volume ) determinationOrdered By: Luigi Tinoco on 01-22-2025 MCV (RBC) [Entitic vol] 94.4 fL 81-99 [facility] Mean corpuscular hemoglobin (MCH) determinationOrdered By: Luigi Tinoco on 01-22-2025 MCH (RBC) [Entitic mass] 30.3 pg 27.0-32.0 [facility] Mean corpuscular hemoglobin concentration (MCHC) determinationOrdered By: Luigi Tinoco on 01-22-2025 MCHC (RBC) [Mass/Vol] 32.1 g/dL 32-36 [facility] Mean platelet volume determi nationOrdered By: Luigi Tinoco on 01-22-2025 Platelet mean volume (Bld) [Entitic vol] 10.8 fL 6.2-12.0 [facility] Monocyte percentageOrdered B y: Luigi Tinoco on 01-22-2025 Monocytes/100 WBC (Bld) 6.0 % 0-10 [facility] Neutrophil percentageOrdered By: Luigi Tinoco on 01-22-2025 Neutrophils/100 WBC (Bld) 64.2 % 47-70 [facility] No Panel InformationOrdered By: Afiatamir Tinoco on 01-22-2025 Unsaturated Iron Binding Capacity 174 ug/dL Low 228-428 [facility] Nucleated red blood cell per centageOrdered By: Luigi Earnest on 01-22-2025 Nucleated RBC/100 WBC (Bld) [Ratio] 0 % 0-5 [facility] Platelet countOrdered By: Brian ronaldtamir Tinoco on 01-22-2025 Platelets (Bld) [#/Vol] 143 10*3/uL Low 150-450 [facility] RBC Auto (Bld) [#/Vol]Ordere d By: Luigi Earnest on 01-22-2025 RBC (Bld) [#/Vol] 3.90 10*6/uL Low 4.2-5.4 [facility] Retic Panelon 01-22-2025 IM RET FRACTION 8.80 Normal 3.00-15.90 [facility] Comment on above: Performed By: #### L 100.9950, L3100.1350, L503.6550, L503.6030, L500.2500, L100.0100 ####[facility] [address] [place], [place], [phone] RET-HE 35.1 pg High 30-35 [facility] Comment on above: Performed By: #### L 100.9950, L3100.1350, L503.6550, L503.6030, L500.2500, L100.0100 ####[facility] [address] [place], [address] Retic Count 1.22 Normal 0.5-1.5 [facility] Comment on above: Performed By: #### L 100.9950, L3100.1350, L503.6550, L503.6030, L500.2500, L100.0100 ####[facility] [address] [place], [address] Reticulocyte hemoglobin equi valent (RET-He) measurementOrdered By: Luigi Tinoco on 01-22-2025 Hemoglobin (Reticulocytes) [Entitic mass] 35.1 pg High 30-35 [facility] Reticulocytes Auto (Bld) [#/ Vol]Ordered By: Luigi Tinoco on 01-22-2025 Reticulocyte Count 1.22 % 0.5-1.5 [facility] Reticulocytes/100 RBC (Bld) 1.22 % 0.5-1.5 [facility] Serum creatinine measurement (mass/volume)Ordered By: Luigi Tinoco on 01-22-2025 Creatinine [Mass/Vol] 1.17 mg/dL 0.70-1.20 [facility] Serum glucose measurement (m ass/volume)Ordered By: Luigi Tinoco on 01-22-2025 Glucose [Mass/Vol] 207 mg/dL High 70-99 [facility] Serum or plasma anion gap de termination (moles/volume)Ordered By: Luigi Tinoco on 01-22-2025 Anion gap [Moles/Vol] 9 mmol/L 5-15 [facility] Serum or plasma calcium loco urement (mass/volume)Ordered By: Luigi Tinoco on 01-22-2025 Calcium [Mass/Vol] 9.1 mg/dL 7.6-11.0 [facility] Serum or plasma erythropoiet in (EPO) measurement (units/volume)Ordered By: Luigi Tinoco on 01-22-2025 Erythropoietin (EPO) Qn 10.1 mIU/mL 2.6-18.5 [facility] Comment on above: [employer] UniC el DxI 800 Immunoassay SystemValues obtained with different assay methods or kits cannotbe used interchangeably. Results cannot be interpreted asabsolute evidence of the presence or absence of malignantdisease.Performed at: [facility] [address] [id number] Director: Bulmaro Nesbitt PhD, Phone: [phone] Serum or plasma ferritin donald surement (mass/volume)Ordered By: Luigi Tinoco on 01-22-2025 Ferritin [Mass/Vol] 95 ng/mL 22-378 [facility] Serum or plasma iron saturat ion measurement (mass fraction)Ordered By: [facility] Earnest on 01-22-2025 Iron saturation [Mass fraction] 30.0 % 15.0-55.0 [facility] Serum or plasma potassium me asurementOrdered By: Luigi iTnoco on 01-22-2025 Potassium [Moles/Vol] 4.3 mmol/L 3.3-5.1 [facility] Serum or plasma sodium measu rement (moles/volume)Ordered By: [facility] Earnest on 01-22-2025 Sodium [Moles/Vol] 140 mmol/L 133-145 [facility] Serum or plasma urea nitroge n measurement (mass/volume)Or[facility] Urea nitrogen [Mass/Vol] 20 mg/dL High 4-19 [facility] White blood cell (WBC) count Ordered By: [facility] 01-22-2025 WBC (Bld) [#/Vol] 7.7 10*3/uL 4.4-11.0 [facility] CNPNon 01-19-2025 [facility] Telephone (NRNMN) MANSI CARO ([id number]) 1955 F Date Time Provider Department 01/19/25 LEYLA MURPHY [facility] During your visit today, we recorded the following information about you: Dipti Stewart 01/19/2025 2:25 PM Signed Patient was inappropriately scheduled as an established patient with Dr. Murphy on 05/15/2025. Patient has only seen Dr. Ramirez in the past, so they are a new patient to Dr. Murphy. Appointment needs to be 60-minutes. For this reason Patient's appointment time has been rescheduled to 4:00 PM to allow adequate time for appointment. Patient has been notified of appt change via [employer] message. Dipti Stewart Allergies As of Date: 01/19/2025 Noted Allergy Reaction LIPITOR (ATORVASTATIN CALCIUM) 04/03/2010 Comments: Heart racing; 07/04/10 patient states that she had started a lot of medication at this time and the she did not have a true allergic reaction and is willing to rechallenge [facility] RN Date Reviewed: 05/17/2024 Reviewed by: Yadira Sanabria LPN - Fully Assessed Reason for Visit: Appointment [186] Cmt: Time Change: 05/15/2025 Prescriptions as of 01/19/2025 - clopidogrel (PLAVIX) 75 mg tablet Take 75 mg by mouth once daily. - dicyclomine (BENTYL) 10 mg capsule Take 20 mg by mouth two times a day. - empagliflozin (JARDIANCE) 10 mg tablet Take 10 mg by mouth daily at bedtime. - metoprolol succinate ER (TOPROL XL) 25 mg 24 hr tablet Take 25 mg by mouth once daily. - escitalopram oxalate (LEXAPRO) 10 mg tablet Take 10 mg by mouth once daily. - prochlorperazine (COMPAZINE) 5 mg tablet Take 5 mg by mouth every 8 hours as needed for nausea/vomiting. - cyanocobalamin (VITAMIN B-12) 500 mcg tablet Take 1 tablet by mouth once daily. - cholecalciferol (VITAMIN D3) 1,000 unit tab tablet Take 1,000 Units by mouth once daily. - ascorbic acid, vitamin C, (VITAMIN C) 500 mg tablet Take 500 mg by mouth once daily. - baclofen 5 mg tablet 1 tab po qid. Do not abruptly stop if at high dose, risk for withdrawal seizures. - clonazePAM (KLONOPIN) 1 mg tablet Take 1 mg by mouth daily at bedtime. - furosemide (LASIX) 20 mg tablet as needed. - spironolactone (ALDACTONE) 25 mg tablet 12.5 mg every other day. - traZODone (DESYREL) 50 mg tablet Take 50 mg by mouth as needed. - sacubitril-valsartan (ENTRESTO) 24-26 mg tablet Take 1 tablet by mouth twice daily. - BABY ASPIRIN ORAL Take 81 mg by mouth every other day. - oxybutynin (DITROPAN) 5 mg/5 mL syrup Take 5 mg by mouth every other day. - pantoprazole DR (PROTONIX) 40 mg tablet Take 1 tablet by mouth twice daily. - metFORMIN (GLUCOPHAGE) 500 mg tablet Take 1 tablet by mouth twice daily. - rosuvastatin (CRESTOR) 5 mg ORAL Tab 1 qd Meds Comments as of 07/10/2021: Patient also takes Trazadone 50mg for sleep PRN Problem List As Of Date 01/19/2025 Noted Resolved Acute, but Ill-Defined, Cerebrovascular Disease*08/14/2009 Unspecified Peripheral Vertigo [H81.399] 01/14/2010 Vertigo of Central Origin [H81.4] 01/14/2010 Cholelithiasis [K80.20] 12/26/2014 Personal history of colonic polyps [Z86.0100] 02/21/2015 02/21/2015 Parkinsonism (HCC) [G20.C] 06/25/2022 Spastic hemiparesis (HCC) [G81.10] 05/13/2023 Encounter Status:Closed by DIPTI STEWART on 01/19/25 [facility] CT CHEST WO IVCONon 01-19-20 CT CHEST WO IVCON * * *Final Report* * * DATE OF EXAM: Jan 19 2025 10:24AM [facility] 0541 - CT CHEST WO IVCON / PROCEDURE REASON: R91.8 MULTIPLE PULMONARY NODULES * * * * Physician Interpretation * * * * EXAMINATION: CHEST CT WITHOUT CONTRAST CLINICAL HISTORY: R91.8 MULTIPLE PULMONARY NODULES Technique: Spiral CT acquisition of the chest from the thoracic inlet to the upper abdomen without contrast. MQ: [id number] CT Radiation dose: Integrated Dose-length product (DLP) for this visit = 330.76 mGy*cm CT Dose Reduction Employed: Automated exposure control(AEC) and iterative recon Comparison: Chest CT dated 07/21/2024, PET/CT dated 08/13/2024 RESULT: Limitations: None. Lines, tubes, and devices: Left subclavian approach pacemaker in place. Lung parenchyma and airways: No consolidation. No new or enlarging pulmonary nodule. Stable 5.4 x 2.4 cm soft tissue adjacent to the right hemidiaphragm on image 215, which was not FDG avid on PET/CT dated 08/13/2024, previously measured 5.4 x 2.[address] dated 07/21/2024. Unchanged bilateral micronodules within the lateral subpleural left upper lobe nodule on image 47, superior right lower lobe on image 129, Mild upper lung predominant centrilobular and paraseptal emphysema. Mild biapical scarring, likely post inflammatory. No endotracheal or central endobronchial lesion is identified. Pleural space: No pleural effusions or thickening. No pneumothorax. Lower neck, lymph nodes, and mediastinum: The imaged thyroid gland is normal. No lymphadenopathy in the supraclavicular, axillary, mediastinal, or hilar regions. . The esophagus is unremarkable. Heart, pericardium, and thoracic vessels: The thoracic aorta and main pulmonary artery are normal in caliber. The cardiac chambers are normal in size. Severe coronary artery atherosclerotic calcifications are noted, although the study is not optimized for coronary assessment. No pericardial effusion or thickening. Mild atherosclerotic calcifications of the thoracic aorta and arch vessels. Bones and soft tissues: Degenerative changes are seen. Upper abdomen: Status post cholecystectomy. Localizer images: No additional findings. IMPRESSION: 1. Stable soft tissue adjacent to the right hemidiaphragm, which was not FDG avid on PET/CT dated 08/13/2024. Continued attention on follow-up is recommended. 2. Smoking related lung injury. 3. No significantly enlarged lymph nodes in the chest. Salesperson Neckties: [facility] Transcribe Date/Time: Jan 23 2025 7:44P Dictated by : MARIANELA WILSON MD This examination was interpreted and the report reviewed and electronically signed by: MARIANELA WILSON MD on Jan 23 2025 7:49PM EST [id number] Normal [facility] Cardiology Visit Reporton Cardiology Visit Report Normal [facility] MRA Neck WITH and W/O Contra ston 12-22-2024 MRA Neck WITH and W/O Contrast Normal [facility] Pelvic (Non )on 11-24 Pelvic (Non ) Normal [facility] Calprotectin, Stoolon [address] 190 ug/g Abnormal 0-120 [facility] Comment on above: Result Comment: Conc entration Interpretation Follow-Up< 5 - 50 ug/g Normal None>50 -120 ug/g Borderline Re-evaluate in 4-6 weeks >120 ug/g Abnormal Repeat as clinically indicatedPerformed at: [address] [id number] Director: Stanton Vargas MD, Phone: [phone] Performed By: #### L 7000.0700, L7000.0750 ####[facility] [address] [place], [place], [id number] MR/BMS.BVSon 12-19-2024 MR/BMS.BVS Normal [facility] L7000.0750on 12-18-2024 P ELASTASE,FECA 416 Normal >200 [facility] Comment on above: Result Comment: Resu lt Units: ug Elast./g Severe Pancreatic Insufficiency: <100 Moderate Pancreatic Insufficiency: 100 - 200 Normal: >200Performed at: [address] [id number] Director: Stanton Vargas MD, Phone: [phone] Performed By: #### L 7000.0700, L7000.0750 ####[facility] [address] [place], [place], [address] 36on 12-16-2024 36 S: Patient spoke wit h [facility] nurse regarding abdominal pain B: Onset of symptoms/concern few months A: Patient's concerned about 7/10 constant lower abdominal pain. He advises she was dx with ischemic colitis in June. They deny fever, deny n/v/d, deny constipation. He advises oxycodone worked but GI will not give them anymore. MRA scheduled first week of Dec. He states they saw an [facility] [employer] [facility] earlier this week who recommended pain mgmt. Bentyl and hyoscyamine sulfate are not helping. R: Paged on-call provider Dr. De Luna who advises Dr Lopez filled her Percocet prescription recently and it doesn't appear that anyone else has per her PDMP report. I will send a refill to her pharmacy but if symptoms worsen then ER is where she needs to go. She has follow up in the office 2/3 so I would recommend making the Percocet last until she is seen. Patient's understands care advice. No further needs at this time. Patient's instructed to call back with new or worsening symptoms. Reason for Disposition [1] MILD-MODERATE pain AND [2] constant AND [3] present > 2 hours Answer Assessment - Initial Assessment Questions 1. LOCATION: Where does it hurt? Lower abdomen, below belly button 2. RADIATION: Does the pain shoot anywhere else? (e.g., chest, back) no 3. ONSET: When did the pain begin? (e.g., minutes, hours or days ago) Few months ago 4. SUDDEN: Gradual or sudden onset? Sudden onset 5. PATTERN Does the pain come and go, or is it constant? Constant 6. SEVERITY: How bad is the pain? (e.g., Scale 1-10; mild, moderate, or severe) 05/31 7. RECURRENT SYMPTOM: Have you ever had this type of stomach pain before? If Yes, ask: When was the last time? and What happened that time? no 8. CAUSE: What do you think is causing the stomach pain? They do not know, hospital in June with ischemic colitis, diverticulitis 9. RELIEVING/AGGRAVATING FACTORS: What makes it better or worse? (e.g., antacids, bending or twisting motion, bowel movement) Nothing helps 10. OTHER SYMPTOMS: Do you have any other symptoms? (e.g., back pain, diarrhea, fever, urination pain, vomiting) Denies n/v/d, denies dysuria 11. : Is there any chance you are ? When was your last menstrual period? no Protocols used: Abdominal Pain - ADULT-AH Normal [facility] Calprotectin stoolOrdered By : Rosa Rodriguez on 12-15-2024 Calprotectin stool 190 ug/g High 0-120 [facility] Comment on above: Concentration Interp retation Follow-Up< 5 - 50 ug/g Normal None>50 -120 ug/g Borderline Re-evaluate in 4-6 weeks >120 ug/g Abnormal Repeat as clinically indicatedPerformed at: - [facility] [address] [id number] Director: Stanton Vargas MD, Phone: [phone] Stool Calprotectin 190 ug/g High 0-120 [facility] Comment on above: Concentration Interp retation Follow-Up< 5 - 50 ug/g Normal None>50 -120 ug/g Borderline Re-evaluate in 4-6 weeks >120 ug/g Abnormal Repeat as clinically indicatedPerformed at: [facility] [id number] Director: Stanton Vargas MD, Phone: [phone] Elastase.pancreatic (Stl) [M ass/Mass]Ordered By: Rosa Rodriguez on 12-15-2024 Stool Pancreatic Elastase 416 >200 [facility] Comment on above: Result Units: ug Stephanie st./g Severe Pancreatic Insufficiency: <100 Moderate Pancreatic Insufficiency: 100 - 200 Normal: >200Performed at: [facility] [id number] Director: Stanton Vargas MD, Phone: [phone] Stool pancreatic elastase me asurement (mass/mass)Ordered By: Rosa Rodriguez on 12-15-2024 Elastase.pancreatic (Stl) [Mass/Mass] 416 >200 [facility] Comment on above: Result Units: ug Stephanie st./g Severe Pancreatic Insufficiency: <100 Moderate Pancreatic Insufficiency: 100 - 200 Normal: >200Performed at: [facility] [id number] Director: Stanton Vargas MD, Phone: [phone] No Panel Informationon 12-13 [facility] Gastroenterology Visit Repor ton 12-12-2024 Gastroenterology Visit Report Normal [facility] Cardiology Visit Reporton Cardiology Visit Report Normal [facility] 36on 11-24-2024 36 Name of caller: Beatrice lobo Contact phone number: [phone] Relationship to Patient: spouse/SO Provider: John Practice: [facility] Chief Complaint/Reason for Call: Patient , Beatrice, is calling to follow up with Dr. Lopez after patient appointment with her Gasteoenterologist. He is requesting a call back to discuss what happened at her appointment regarding her colitis diagnosis. He can be reached at [phone]. Best time of day caller can be reached: Any Patient advised that office/PCP has 24-48 business hours to return their call: N/A Normal [facility] Gastroenterology Visit Repor ton 11-23-2024 Gastroenterology Visit Report Normal [facility] Abdomen/Pelvis W IV Cont ONL Yon 11-18-2024 Abdomen/Pelvis W IV Cont ONLY Normal [facility] Absolute neutrophil countOrd ered By: Breann East on 11-18-2024 Neutrophils (Bld) [#/Vol] 3.3 10*3/uL 2.0-7.7 [facility] Albumin to globulin ratioOrd ered By: Breann East on 11-18-2024 Albumin/Globulin [Mass ratio] 0.9 {ratio} 0.9-2.4 [facility] Basophil percentageOrdered B y: Breann East on 11-18-2024 Basophils/100 WBC (Bld) 0.4 % 0-1 [facility] Bilirubin Test strip Ql (U)O rdered By: Breann East on 11-18-2024 Bilirubin Ql (U) Negative Negative [facility] Bilirubin, totalOrdered By: Breann East on 11-18-2024 Bilirubin [Mass/Vol] 0.30 mg/dL 0.20-1.00 [facility] Comment on above: For patients on eltr ombopag therapy, use of Dimension [place] TBIL is not recommended. Blood urea nitrogen (BUN)/cr eatinine ratioOrdered By: Breann East on 11-18-2024 Urea nitrogen/Creatinine [Mass ratio] 26.5 mg/mg High 10-20 [facility] CBC W/Diff, Automatedon 10-23 Absolute Lymph 2.93 X10 3/uL Normal 0.83-4.51 [facility] Comment on above: Performed By: #### L 100.0100, L500.4050, L501.2450 ####[facility] [address] [place], [address] Absolute Neut 3.3 X10 3/uL Normal 2.0-7.7 [facility] Comment on above: Performed By: #### L 100.0100, L500.4050, L501.2450 ####[facility] [address] [place], [address] Basophils/100 WBC (Bld) 0.4 % Normal 0-1 [facility] Comment on above: Performed By: #### L 100.0100, L500.4050, L501.2450 ####[facility] [address] [place], [address] Eosinophils/100 WBC (Bld) 2.0 % Normal 0-5 [facility] Comment on above: Performed By: #### L 100.0100, L500.4050, L501.2450 ####[facility] [address] [place], [address] Erythrocyte distribution width (RBC) [Ratio] 13.8 % Normal 11.6-14.6 [facility] Comment on above: Performed By: #### L 100.0100, L500.4050, L501.2450 ####[facility] [address] [place], [address] Hematocrit (Bld) [Volume fraction] 39.2 % Normal 37-47 [facility] Comment on above: Performed By: #### L 100.0100, L500.4050, L501.2450 ####[facility] [address] [place], [address] Hemoglobin (Bld) [Mass/Vol] 12.7 g/dL Normal 12.0-15.0 [facility] Comment on above: Performed By: #### L 100.0100, L500.4050, L501.2450 ####[facility] [address] [place], [address] IG% 0.100 Normal 0.0-0.9 [facility] Comment on above: Result Comment: IG% - Immature Granulocytes (promyelocytes, myelocytes andmetamyelocytes) > 1% indicates that a LEFT SHIFT is Present. Performed By: #### L 100.0100, L500.4050, L501.2450 ####[facility] [address] [place], [address] Lymphocytes/100 WBC (Bld) 42.7 % High 19-41 [facility] Comment on above: Performed By: #### L 100.0100, L500.4050, L501.2450 ####[facility] [address] [place], [address] MCH (RBC) [Entitic mass] 30.2 pg Normal 27.0-32.0 [facility] Comment on above: Performed By: #### L 100.0100, L500.4050, L501.2450 ####[facility] [address] [place], [address] MCHC (RBC) [Mass/Vol] 32.4 g/dL Normal 32-36 [facility] Comment on above: Performed By: #### L 100.0100, L500.4050, L501.2450 ####[facility] [address] [place], [address] MCV (RBC) [Entitic vol] 93.3 fL Normal 81-99 [facility] Comment on above: Performed By: #### L 100.0100, L500.4050, [id number] ####[facility] [address] [place], [address] Monocytes/100 WBC (Bld) 6.7 % Normal 0-10 [facility] Comment on above: Performed By: #### L 100.0100, L500.4050, [id number] ####[facility] [address] [place], [address] Neutrophils/100 WBC (Bld) 48.1 % Normal 47-70 [facility] Comment on above: Performed By: #### L 100.0100, L500.4050, [id number] ####[facility] [address] [place], [address] Nucleated RBC (Bld) [#/Vol] 0 10*3/uL Normal 0-5 [facility] Comment on above: Performed By: #### L 100.0100, L500.4050, L501.2450 ####[facility] [address] [place], [address] Platelet mean volume (Bld) [Entitic vol] 11.7 fL Normal 6.2-12.0 [facility] Comment on above: Performed By: #### L 100.0100, L500.4050, L501.2450 ####[facility] [address] [place], [address] Platelets (Bld) [#/Vol] 153 10*3/uL Normal 150-450 [facility] Comment on above: Performed By: #### L 100.0100, L500.4050, L501.2450 ####[facility] [address] [place], [address] RBC (Bld) [#/Vol] 4.20 10*6/uL Normal 4.2-5.4 [facility] Comment on above: Performed By: #### L 100.0100, L500.4050, L501.2450 ####[facility] [address] [place], [address] RDW SD 47.0 fl High 35.1-43.9 [facility] Comment on above: Performed By: #### L 100.0100, L500.4050, L501.2450 ####[facility] [address] [place], [address] WBC (Bld) [#/Vol] 6.9 10*3/uL Normal 4.4-11.0 [facility] Comment on above: Performed By: #### L 100.0100, L500.4050, L501.2450 ####[facility] [address] [place], [address] Carbon dioxide measurementOr dered By: Breann East on 11-18-2024 CO2 [Moles/Vol] 29.0 mmol/L 21.0-32.0 [facility] Chloride measurementOrdered By: Breann East on 11-18-2024 Chloride [Moles/Vol] 107 mmol/L 98-107 [facility] Comprehensive Metabolic Prof ilon 11-18-2024 Albumin [Mass/Vol] 3.6 g/dL Normal 3.2-5.0 [facility] Comment on above: Performed By: #### L 100.0100, L500.4050, L501.2450 ####[facility] [address] [place], [address] Albumin/Globulin [Mass ratio] 0.9 {ratio} Normal 0.9-2.4 [facility] Comment on above: Performed By: #### L 100.0100, L500.4050, L501.2450 ####[facility] [address] [place], [address] ALK P 52 U/L Normal 45-117 [facility] Comment on above: Performed By: #### L 100.0100, L500.4050, L501.2450 ####[facility] [address] [place], [address] ALT [Catalytic activity/Vol] 21 U/L Normal 13-56 [facility] Comment on above: Performed By: #### L 100.0100, L500.4050, L501.2450 ####[facility] [address] [place], [address] AST [Catalytic activity/Vol] 19 U/L Normal 15-37 [facility] Comment on above: Performed By: #### L 100.0100, L500.4050, L501.2450 ####[facility] [address] [place], [address] Bilirubin [Mass/Vol] 0.30 mg/dL Normal 0.20-1.00 [facility] Comment on above: Result Comment: For patients on eltrombopag therapy, use of Dimension [place] TBIL is not recommended. Performed By: #### L 100.0100, L500.4050, L501.2450 ####[facility] [address] [place], [address] BUN/CRE 26.5 RATIO High 10-20 [facility] Comment on above: Performed By: #### L 100.0100, L500.4050, L501.2450 ####[facility] [address] [place], [address] CA,Total 9.2 mg/dL Normal 8.5-10.1 [facility] Comment on above: Performed By: #### L 100.0100, L500.4050, L501.2450 ####[facility] [address] [place], [address] Chloride [Moles/Vol] 107 mmol/L Normal 98-107 [facility] Comment on above: Performed By: #### L 100.0100, L500.4050, L501.2450 ####[facility] [address] [place], [address] CO2 [Moles/Vol] 29.0 mmol/L Normal 21.0-32.0 [facility] Comment on above: Performed By: #### L 100.0100, L500.4050, L501.2450 ####[facility] [address] [place], [address] Creatinine [Mass/Vol] 1.02 mg/dL Normal 0.55-1.02 [facility] Comment on above: Result Comment: The validity of the calculated GFR GFRAA in patients over70 years has not been determined. Clinical correlation isessential. Performed By: #### L 100.0100, L500.4050, L501.2450 ####[facility] [address] [place], [address] EST GFR - AA 69 mL/min Normal >60 [facility] Comment on above: Result Comment: Afri can Nepalese GFR Calc Performed By: #### L 100.0100, L500.4050, L501.2450 ####[facility] [address] [place], [address] GAP 3 Low 5-15 [facility] Comment on above: Performed By: #### L 100.0100, L500.4050, L501.2450 ####[facility] [address] [place], [address] GFR/1.73 sq M.predicted among non-blacks MDRD (S/P/Bld) [Vol rate/Area] 57 mL/min/{1.73_m2} Low >60 [facility] Comment on above: Result Comment: Non- GFR Calc Performed By: #### L 100.0100, L500.4050, L501.2450 ####[facility] [address] [place], [address] Globulin (S) [Mass/Vol] 3.8 g/dL Normal 2.2-4.2 [facility] Comment on above: Performed By: #### L 100.0100, L500.4050, L501.2450 ####[facility] [address] [place], [address] Glucose [Mass/Vol] 209 mg/dL High 74-106 [facility] Comment on above: Result Comment: Gluc ose result greater than or equal to 200 mg/dLsuggests DIABETES MELLITUS per A.D.A. criteria. Performed By: #### L 100.0100, L500.4050, L501.2450 ####[facility] [address] [place], [address] Potassium [Moles/Vol] 4.4 mmol/L Normal 3.5-5.1 [facility] Comment on above: Performed By: #### L 100.0100, L500.4050, L501.2450 ####[facility] [address] [place], [address] Sodium [Moles/Vol] 138 mmol/L Normal 136-145 [facility] Comment on above: Performed By: #### L 100.0100, L500.4050, L501.2450 ####[facility] [address] [place], [address] T PROT 7.4 g/dL Normal 6.4-8.2 [facility] Comment on above: Performed By: #### L 100.0100, L500.4050, L501.2450 ####[facility] [address] [place], [address] Urea nitrogen [Mass/Vol] 27 mg/dL High 7-18 [facility] Comment on above: Performed By: #### L 100.0100, L500.4050, L501.2450 ####[facility] [address] [place], [address] Emergency Department Summary on 11-18-2024 Emergency Department Summary Normal [facility] Eosinophil percentageOrdered By: Breann East on 11-18-2024 Eosinophils/100 WBC (Bld) 2.0 % 0-5 [facility] Epithelial cells.squamous LM Ql (Urine sed)Ordered By: Breann East on 11-18-2024 Epithelial cells.squamous LM.HPF (Urine sed) [#/Area] 0 /[HPF] 5-10 [facility] Erythrocyte distribution wid th (RBC) [Ratio]Ordered By: Breann East on 11-18-2024 Erythrocyte distribution width (RBC) [Entitic vol] 47.0 fL High 35.1-43.9 [facility] Erythrocyte distribution wid th ratioOrdered By: Breann East on 11-18-2024 Erythrocyte distribution width (RBC) [Ratio] 13.8 % 11.6-14.6 [facility] Estimated glomerular filtrat ion rate (GFR) AmericanOrdered By: Breann East on 11-18-2024 Estimated GFR (MDRD) Amer 69 mL/min >60 [facility] Comment on above: GFR Calc Glomerular filtration rate ( GFR) estimationOrdered By: Breann East on 11-18-2024 Estimated GFR (MDRD) Non-Af Amer 57 mL/min Low >60 [facility] Comment on above: Non- GFR Calc Glucose Ql (U)Ordered By: Tanya Eats on 11-18-2024 Glucose (U) [Mass/Vol] 1000 mg/dL High Normal [facility] Glucose measurementOrdered B y: Breann East on 11-18-2024 Glucose [Mass/Vol] 209 mg/dL High 74-106 [facility] Comment on above: Glucose result great er than or equal to 200 mg/dLsuggests DIABETES MELLITUS per A.D.A. criteria. Hematocrit Auto (Bld) [Volum e fraction]Ordered By: Breann East on 11-18-2024 Hematocrit (Bld) [Volume fraction] 39.2 % 37-47 [facility] Hemoglobin measurementOrdere d By: Breann East on 11-18-2024 Hemoglobin (Bld) [Mass/Vol] 12.7 g/dL 12.0-15.0 [facility] Immature granulocytes/100 WB C Auto (Bld)Ordered By: Breann East on 11-18-2024 Immature granulocytes/100 WBC (Bld) 0.100 % 0.0-0.9 [facility] Comment on above: IG% - Immature Granu locytes (promyelocytes, myelocytes and metamyelocytes) > 1% indicates that a LEFT SHIFT is Present. Ketones Test strip Ql (U)Ord ered By: Breann East on 11-18-2024 Ketones Ql (U) Negative Negative [facility] Laboratory - Chemistry and C hemistry - challengeOrdered By: Breann East on 11-18-2024 AST [Catalytic activity/Vol] 19 U/L 15-37 [facility] Lipaseon 11-18-2024 Lipase [Catalytic activity/Vol] 49 U/L Normal 13-75 [facility] Comment on above: Result Comment: Josy fay note:LIPASE revised reference range effective 23.New Lipase methodology. Expected to produce lower valuesthan the previous assay method.NEW Reference Range: 13 - 75 U/L Performed By: #### L 100.0100, L500.4050, L501.2450 ####[facility] [address] [place], [address] Lipase measurementOrdered By : Breann East on 11-18-2024 Lipase [Catalytic activity/Vol] 49 U/L - [facility] Comment on above: Please note:LIPASE r evised reference range effective 23. New Lipase methodology. Expected to produce lower values than the previous assay method. NEW Reference Range: 13 - 75 U/L Lymphocytes Auto (Unsp spec) [#/Vol]Ordered By: Breann East on 11-18-2024 Lymphocytes (Bld) [#/Vol] 2.93 10*3/uL 0.83-4.51 [facility] Lymphocytes/100 WBC Auto (Un sp spec)Ordered By: Breann East on 11-18-2024 Lymphocytes/100 WBC (Bld) 42.7 % High 19-41 [facility] MCV (mean corpuscular volume ) determinationOrdered By: Breann East on 11-18-2024 MCV (RBC) [Entitic vol] 93.3 fL 81-99 [facility] Mean corpuscular hemoglobin (MCH) determinationOrdered By: Breann East on 11-18-2024 MCH (RBC) [Entitic mass] 30.2 pg 27.0-32.0 [facility] Mean corpuscular hemoglobin concentration (MCHC) determinationOrdered By: Breann East on 11-18-2024 MCHC (RBC) [Mass/Vol] 32.4 g/dL 32-36 [facility] Mean platelet volume determi nationOrdered By: Breann East on 11-18-2024 Platelet mean volume (Bld) [Entitic vol] 11.7 fL 6.2-12.0 [facility] Microscopic analysis of urin e for red blood cells (RBC)Ordered By: Breann East on 11-18-2024 Urine RBC 0-5 SEEN /hpf 0-5 [facility] Monocyte percentageOrdered B y: Breann East on 11-18-2024 Monocytes/100 WBC (Bld) 6.7 % 0-10 [facility] Mucus LM Ql (Urine sed)Order ed By: Breann East on 11-18-2024 Mucus Ql (Urine sed) 0 SEEN /hpf [facility] Neutrophil percentageOrdered By: Breann East on 11-18-2024 Neutrophils/100 WBC (Bld) 48.1 % 47-70 [facility] Nitrite Test strip Ql (U)Ord ered By: Breann East on 11-18-2024 Nitrite Ql (U) Negative Negative [facility] Nucleated red blood cell per centageOrdered By: Breann East on 11-18-2024 Nucleated RBC/100 WBC (Bld) [Ratio] 0 % 0-5 [facility] Platelet countOrdered By: Tanya East on 11-18-2024 Platelets (Bld) [#/Vol] 153 10*3/uL 150-450 [facility] Potassium measurementOrdered By: Breann East on 11-18-2024 Potassium [Moles/Vol] 4.4 mmol/L 3.5-5.1 [facility] Protein Test strip Ql (U)Ord ered By: Breann East on 11-18-2024 Protein Ql (U) Negative Negative [facility] RBC Auto (Bld) [#/Vol]Ordere d By: Breann East on 11-18-2024 RBC (Bld) [#/Vol] 4.20 10*6/uL 4.2-5.4 [facility] Serum anion gap measurementO rdered By: Breann East on 11-18-2024 Anion gap [Moles/Vol] 3 mmol/L Low 5-15 [facility] Serum globulin measurementOr dered By: Breann East on 11-18-2024 Globulin (S) [Mass/Vol] 3.8 g/dL 2.2-4.2 [facility] Serum or plasma alanine cisneros otransferase (ALT) measurementOrdered By: Breann East on 11-18-2024 ALT [Catalytic activity/Vol] 21 U/L 13-56 [facility] Serum or plasma albumin loco urement (mass/volume)Ordered By: Breann East on 11-18-2024 Albumin [Mass/Vol] 3.6 g/dL 3.2-5.0 [facility] Serum or plasma alkaline sergio sphatase measurementOrdered By: Breann East on 11-18-2024 ALP [Catalytic activity/Vol] 52 U/L 45-117 [facility] Serum or plasma calcium loco urement (mass/volume)Ordered By: Breann East on 11-18-2024 Calcium [Mass/Vol] 9.2 mg/dL 8.5-10.1 [facility] Serum or plasma creatinine m easurement (mass/volume)Ordered By: Breann East on 11-18-2024 Creatinine [Mass/Vol] 1.02 mg/dL 0.55-1.02 [facility] Comment on above: The validity of the calculated GFR & GFRAA in patients over 70 years has not been determined. Clinical correlation is essential. Serum or plasma urea nitroge n measurement (mass/volume)Ordered By: Breann East on 11-18-2024 Urea nitrogen [Mass/Vol] 27 mg/dL High 7-18 [facility] Sodium levelOrdered By: Celestino East on 11-18-2024 Sodium [Moles/Vol] 138 mmol/L 136-145 [facility] Total proteinOrdered By: Chaz East on 11-18-2024 Protein [Mass/Vol] 7.4 g/dL 6.4-8.2 [facility] Transitional cells LM Ql (Ur ine sed)Ordered By: Breann East on 11-18-2024 Urine Transitional Epithelial Cells 0-5 SEEN /hpf 0-5 [facility] Urinalysis, Completeon 11-18 EPI,SQUAMOUS 0-5 SEEN Normal 5-10 [facility] Comment on above: Order Comment: CLEAN CATCH Performed By: #### L 400.0001 ####[facility] [address] [place], [address] EPI,TRANSITION 0-5 SEEN Normal 0-5 [facility] Comment on above: Order Comment: CLEAN CATCH Performed By: #### L 400.0001 ####[facility] [address] [place], [address] WBC 0-5 SEEN Normal 0-5 [facility] Comment on above: Order Comment: CLEAN CATCH Performed By: #### L 400.0001 ####[facility] [address] [place], [address] BACTERIA 1+ /hpf Normal None Seen [facility] Comment on above: Order Comment: CLEAN CATCH Performed By: #### L 400.0001 ####[facility] [address] [place], [address] RBC 0-5 SEEN Normal 0-5 [facility] Comment on above: Order Comment: CLEAN CATCH Performed By: #### L 400.0001 ####[facility] [address] [place], [address] Mucus Ql (Urine sed) 0 SEEN Normal [facility] Comment on above: Order Comment: CLEAN CATCH Performed By: #### L 400.0001 ####[facility] [address] [place], [address] Urinalysis, Routine (Dipstic k)on 11-18-2024 BILIRUBIN URINE Normal Negative [facility] Comment on above: Order Comment: CLEAN CATCH Result Comment: Tori bliss via OM: Ordered Performed By: #### L ####[facility] [address] [place], [address] Clarity (U) Normal Clear [facility] Comment on above: Order Comment: CLEAN CATCH Result Comment: Tori bliss via OM: MD Ordered Performed By: #### L 400.2010 ####[facility] [address] [place], [address] Color (U) Normal Yellow [facility] Comment on above: Order Comment: CLEAN CATCH Result Comment: Canc elled via OM: MD Ordered Performed By: #### L 400.2010 ####[facility] [address] [place], [address] GLUCOSE, UR Normal Normal [facility] Comment on above: Order Comment: CLEAN CATCH Result Comment: Canc elled via OM: MD Ordered Performed By: #### L 400.2010 ####[facility] [address] [place], [address] KETONE UR Normal Negative [facility] Comment on above: Order Comment: CLEAN CATCH Result Comment: Canc elled via OM: MD Ordered Performed By: #### L 400.2010 ####[facility] [address] [place], [address] LEUK ESTERASE Normal Negative [facility] Comment on above: Order Comment: CLEAN CATCH Result Comment: Canc elled via OM: MD Ordered Performed By: #### L 400.2010 ####[facility] [address] [place], [address] Nitrite Ql (U) Normal Negative [facility] Comment on above: Order Comment: CLEAN CATCH Result Comment: Canc elled via OM: MD Ordered Performed By: #### L 400.2010 ####[facility] [address] [place], [address] OCCULT BLOOD-UR Normal Negative [facility] Comment on above: Order Comment: CLEAN CATCH Result Comment: Canc elled via OM: MD Ordered Performed By: #### L 400.2010 ####[facility] [address] [place], [address] pH UR Normal 5.0 - 8.0 [facility] Comment on above: Order Comment: CLEAN CATCH Result Comment: Canc elled via OM: MD Ordered Performed By: #### L 400.2010 ####[facility] [address] [place], [address] PROT DIPSTX Normal Negative [facility] Comment on above: Order Comment: CLEAN CATCH Result Comment: Canc elled via OM: MD Ordered Performed By: #### L 400.2010 ####[facility] [address] [place], [address] SP.GR. DIPSTX Normal 1.002-1.03 0 [facility] Comment on above: Order Comment: CLEAN CATCH Result Comment: Canc elled via OM: MD Ordered Performed By: #### L 400.2010 ####[facility] [address] [place], [address] UR Preservative Normal [facility] Comment on above: Order Comment: CLEAN CATCH Result Comment: Canc elled via OM: MD Ordered Performed By: #### L 400.2010 ####[facility] [address] [place], [address] UROBILI Normal Normal [facility] Comment on above: Order Comment: CLEAN CATCH Result Comment: Canc elled via OM: MD Ordered Performed By: #### L 400.2010 ####[facility] [address] [place], [address] Urine blood detectionOrdered By: Breann East on 11-18-2024 Urine Occult Blood 50 /ul High Negative [facility] Urine clarityOrdered By: Chaz East on 11-18-2024 Clarity (U) Clear Clear [facility] Urine color determinationOrd ered By: Breann East on 11-18-2024 Color (U) YELLOW Yellow [facility] Urine leukocyte esterase det ection by dipstickOrdered By: Breann East on 11-18-2024 Leukocyte esterase Test strip Ql (U) Negative Negative [facility] Urine pHOrdered By: Niurka East on 11-18-2024 pH (U) 7.0 [pH] 5.0 - 8.0 [facility] Urine sediment bacteria coun t by microscopy (number/high power field)Ordered By: Breann East on 11-18-2024 Bacteria LM.HPF (Urine sed) [#/Area] 1 /[HPF] None Seen [facility] Urine specific gravity measu rementOrdered By: Breann East on 11-18-2024 Specific gravity (U) [Rel density] 1.005 1.002-1.03 0 [facility] Urobilinogen Ql (U)Ordered B y: Breann East on 11-18-2024 Urine Urobilinogen Normal mg/dl Normal [facility] White blood cell (WBC) count Ordered By: Breann East on 11-18-2024 WBC (Bld) [#/Vol] 6.9 10*3/uL 4.4-11.0 [facility] White blood cell countOrdere d By: Breann East on 11-18-2024 Urine WBC 0-5 SEEN /hpf 0-5 [facility] 36on 11-16-2024 36 Name of caller: Beatrice lobo Contact phone number: [phone] Relationship to Patient: spouse/SO Provider: Dr Marci Lopez [place] [facility] [place] Chief Complaint/Reason for Call: Song called to let doctor know appointment is set for 12/19/24 with vascular surgeon, and is not sure if that's soon enough. Please advise Best time of day caller can be reached: PM Normal [facility] Valerie 11-13-2024 NIRMALAN Telephone (REMS31) MANSI CARO ([id number]) 1955 F Date Time Provider Department 11/13/24 GHAZALA GUSMAN REMS31 During your visit today, we recorded the following information about you: Humaira Wetzel 11/13/2024 11:02 AM Signed Patient last seen on 05/17/24 Mr. Song Pena is calling for his Mansi Caro. She is taking 5 mg. Baclofen x4 tablets per day for spasticity. The medication is not helping with her spasticity right achilles tendon on the left hand side is not breaking free. Still pretty tight. Is there something you can prescribe to help with this? Pharmacy: [facility] in [place], [place] Janee Argueta RN 11/14/2024 9:27 AM Signed MELLISSA: 05/17/24 IMPRESSION and PLAN: 69 yo woman with PMH anxiety, depression, HTN, HPL, smoker, stroke with spasticity right HF/hip add/KF, but more in the distal aspects PF and D4/5 toe flexors, less so hip and KFs. She had element of dynamic spasticity with gait with right foot going into PF and flexor toe curling - this much better baclofen abi and controlling spasticity at 5mg qid, loopy at higher doses. 1 year supply since dosing stable. F/u 12 months TANIA Milner Lynn, MD 11/14/2024 4:11 PM Signed Needs to come back in to reassess. In the meantime- can increase from 5mg qid to 10mg tid- messaged patient. Allergies As of Date: 11/13/2024 Noted Allergy Reaction LIPITOR (ATORVASTATIN CALCIUM) 04/03/2010 Comments: Heart racing; 07/04/10 patient states that she had started a lot of medication at this time and the she did not have a true allergic reaction and is willing to rechallenge HERVE MARIN Date Reviewed: 05/17/2024 Reviewed by: Yadira Sanabria LPN - Fully Assessed Reason for Visit: Requesting help with spasticity medication. [Other] Prescriptions as of 11/14/2024 - clopidogrel (PLAVIX) 75 mg tablet Take 75 mg by mouth once daily. - dicyclomine (BENTYL) 10 mg capsule Take 20 mg by mouth two times a day. - empagliflozin (JARDIANCE) 10 mg tablet Take 10 mg by mouth daily at bedtime. - metoprolol succinate ER (TOPROL XL) 25 mg 24 hr tablet Take 25 mg by mouth once daily. - escitalopram oxalate (LEXAPRO) 10 mg tablet Take 10 mg by mouth once daily. - prochlorperazine (COMPAZINE) 5 mg tablet Take 5 mg by mouth every 8 hours as needed for nausea/vomiting. - cyanocobalamin (VITAMIN B-12) 500 mcg tablet Take 1 tablet by mouth once daily. - cholecalciferol (VITAMIN D3) 1,000 unit tab tablet Take 1,000 Units by mouth once daily. - ascorbic acid, vitamin C, (VITAMIN C) 500 mg tablet Take 500 mg by mouth once daily. - baclofen 5 mg tablet 1 tab po qid. Do not abruptly stop if at high dose, risk for withdrawal seizures. - clonazePAM (KLONOPIN) 1 mg tablet Take 1 mg by mouth daily at bedtime. - furosemide (LASIX) 20 mg tablet as needed. - spironolactone (ALDACTONE) 25 mg tablet 12.5 mg every other day. - traZODone (DESYREL) 50 mg tablet Take 50 mg by mouth as needed. - sacubitril-valsartan (ENTRESTO) 24-26 mg tablet Take 1 tablet by mouth twice daily. - BABY ASPIRIN ORAL Take 81 mg by mouth every other day. - oxybutynin (DITROPAN) 5 mg/5 mL syrup Take 5 mg by mouth every other day. - pantoprazole DR (PROTONIX) 40 mg tablet Take 1 tablet by mouth twice daily. - metFORMIN (GLUCOPHAGE) 500 mg tablet Take 1 tablet by mouth twice daily. - rosuvastatin (CRESTOR) 5 mg ORAL Tab 1 qd Meds Comments as of 07/10/2021: Patient also takes Trazadone 50mg for sleep PRN Problem List As Of Date 11/13/2024 Noted Resolved Acute, but Ill-Defined, Cerebrovascular Disease*08/14/2009 Unspecified Peripheral Vertigo [H81.399] 01/14/2010 Vertigo of Central Origin [H81.4] 01/14/2010 Cholelithiasis [K80.20] 12/26/2014 Personal history of colonic polyps [Z86.0100] 02/21/2015 02/21/2015 Parkinsonism (HCC) [G20.C] 06/25/2022 Spastic hemiparesis (HCC) [G81.10] 05/13/2023 Encounter Status:Closed by GHAZALA GUSMAN on 11/14/[address] [facility] US CAROTID ARTERY DUPLE X BILATERALon 11-12-2024 [facility] US CAROTID ARTERY DUPLEX BILATERAL [facility] 1955 [id number] Exam Date/Time: 11/10/2024 15:39 Procedure: [facility] US CAROTID ARTERY DUPLEX BILATERAL Ordering Provider: ISIDRO JESSICA Reason For Exam: [id number] BILATERAL CAROTID ULTRASOUND: CLINICAL INDICATION: Dizziness. TECHNIQUE: Two-dimensional, Color-flow and spectral Doppler sonography of the extracranial arterial circulation was performed. COMPARISON: None. FINDINGS: RIGHT: Plaque: Minor non-calcified and calcified plaque CCA peak systolic: 66 cm/sec CCA end diastolic: 10 cm/sec ICA peak systolic: 125 cm/sec ICA end diastolic: 27 cm/sec ICA/CCA ratio: 1.9 Estimated ICA stenosis: Less than 50% ECA systolic: 114 cm/sec Vertebral: Antegrade LEFT: Plaque: Minor non-calcified and calcified plaque CCA peak systolic: 53 cm/sec CCA end diastolic: 8.4 cm/sec ICA peak systolic: 133 cm/sec ICA end diastolic: 33 cm/sec ICA/CCA ratio: 2.5 Estimated ICA stenosis: Less than 50% ECA systolic: 105 cm/sec Vertebral: Antegrade IMPRESSION: 1. Probable significant stenosis left internal carotid artery the range of 50-69 percent luminal narrowing. Borderline stenosis in the right proximal internal carotid artery. CTA or MRA is recommended for further evaluation. 2. Patent antegrade vertebral arteries This radiologist maintains RVT certification. Reference: Measurement of carotid stenosis is a ratio based on conventional angiographic data from the NASCET trials with the smallest caliber of the internal carotid as the numerator and normal post-stenotic internal carotid caliber as denominator. Stenosis based upon Society of Radiologists in Ultrasound consensus: <50%: ICA PS <125 cm/sec, ICA ED <40 cm/sec, ICA/CCA ratio <2.0 50-69%: ICA PS 125-230 cm/sec , ICA ED 40-100 cm/sec, ICA/CCA ratio 2-4 >70%: ICA PS >230 cm/sec, ICA ED >100 cm/sec, ICA/CCA ratio >4 Report Dictated on Electronically Signed By: Amadeo Hsu MD Electronically Signed Date/Time: 11/12/2024 4:33 PM EST Normal [facility] US carotid artery d uplex bilateralon 11-12-2024 1. Probable signific ant stenosis left internal carotid artery the range of 50-69 percent luminal narrowing. Borderline stenosis in the right proximal internal carotid artery. CTA or MRA is recommended for further evaluation. 2. Patent antegrade vertebral arteries This radiologist maintains RVT certification. Reference: Measurement of carotid stenosis is a ratio based on conventional angiographic data from the NASCET trials with the smallest caliber of the internal carotid as the numerator and normal post-stenotic internal carotid caliber as denominator. Stenosis based upon Society of Radiologists in Ultrasound consensus: <50%: ICA PS <125 cm/sec, ICA ED <40 cm/sec, ICA/CCA ratio <2.0 50-69%: ICA PS 125-230 cm/sec , ICA ED 40-100 cm/sec, ICA/CCA ratio 2-4 >70%: ICA PS >230 cm/sec, ICA ED >100 cm/sec, ICA/CCA ratio >4 Report Dictated on Electronically Signed By: Amadeo Hsu MD Electronically Signed Date/Time: 11/12/2024 4:33 PM [facility] [employer] Patient Name: [facility]SI [facility] : 1955 [id number] Exam Date/Time: 11/10/2024 15:39 Procedure: [facility] US CAROTID ARTERY DUPLEX BILATERAL Ordering Provider: ISIDRO JESSICA Reason For Exam: [id number] BILATERAL CAROTID ULTRASOUND: CLINICAL INDICATION: Dizziness. TECHNIQUE: Two-dimensional, Color-flow and spectral Doppler sonography of the extracranial arterial circulation was performed. COMPARISON: None. FINDINGS: RIGHT: Plaque: Minor non-calcified and calcified plaque CCA peak systolic: 66 cm/sec CCA end diastolic: 10 cm/sec ICA peak systolic: 125 cm/sec ICA end diastolic: 27 cm/sec ICA/CCA ratio: 1.9 Estimated ICA stenosis: Less than 50% ECA systolic: 114 cm/sec Vertebral: Antegrade LEFT: Plaque: Minor non-calcified and calcified plaque CCA peak systolic: 53 cm/sec CCA end diastolic: 8.4 cm/sec ICA peak systolic: 133 cm/sec ICA end diastolic: 33 cm/sec ICA/CCA ratio: 2.5 Estimated ICA stenosis: Less than 50% ECA systolic: 105 cm/sec Vertebral: Antegrade [facility] Amadeo Hsu MD - 11/12/2024 Patient Name: MANSI CARO : 1955 [facility]#: [id number] Exam Date/Time: 11/10/2024 15:39 Procedure: [facility] US CAROTID ARTERY DUPLEX BILATERAL Ordering Provider: ISIDRO JESSICA Reason For Exam: [id number] BILATERAL CAROTID ULTRASOUND: CLINICAL INDICATION: Dizziness. TECHNIQUE: Two-dimensional, Color-flow and spectral Doppler sonography of the extracranial arterial circulation was performed. COMPARISON: None. FINDINGS: RIGHT: Plaque: Minor non-calcified and calcified plaque CCA peak systolic: 66 cm/sec CCA end diastolic: 10 cm/sec ICA peak systolic: 125 cm/sec ICA end diastolic: 27 cm/sec ICA/CCA ratio: 1.9 Estimated ICA stenosis: Less than 50% ECA systolic: 114 cm/sec Vertebral: Antegrade LEFT: Plaque: Minor non-calcified and calcified plaque CCA peak systolic: 53 cm/sec CCA end diastolic: 8.4 cm/sec ICA peak systolic: 133 cm/sec ICA end diastolic: 33 cm/sec ICA/CCA ratio: 2.5 Estimated ICA stenosis: Less than 50% ECA systolic: 105 cm/sec Vertebral: Antegrade IMPRESSION: 1. Probable significant stenosis left internal carotid artery the range of 50-69 percent luminal narrowing. Borderline stenosis in the right proximal internal carotid artery. CTA or MRA is recommended for further evaluation. 2. Patent antegrade vertebral arteries This radiologist maintains RVT certification. Reference: Measurement of carotid stenosis is a ratio based on conventional angiographic data from the NASCET trials with the smallest caliber of the internal carotid as the numerator and normal post-stenotic internal carotid caliber as denominator. Stenosis based upon Society of Radiologists in Ultrasound consensus: <50%: ICA PS <125 cm/sec, ICA ED <40 cm/sec, ICA/CCA ratio <2.0 50-69%: ICA PS 125-230 cm/sec , ICA ED 40-100 cm/sec, ICA/CCA ratio 2-4 >70%: ICA PS >230 cm/sec, ICA ED >100 cm/sec, ICA/CCA ratio >4 Report Dictated on Electronically Signed By: Amadeo Hsu MD Electronically Signed Date/Time: 11/12/2024 4:33 PM [facility] [employer] 12 Lead EKGon 11-02-2024 12 Lead EKG Normal [facility] Abdomen/Pelvis without Conto n 11-02-2024 Abdomen/Pelvis without Cont Normal [facility] BNP,B-Type NATRIURETIC PEPTI Ingrid 11-02-2024 Natriuretic peptide B (Bld) [Mass/Vol] 52.4 pg/mL Normal 0-100 [facility] Comment on above: Performed By: #### L 503.6620, L100.0500, L500.4050, L501.2450, L501.5425 ####[facility] [address] [place], [address] Brain/Head without Contrasto n 11-02-2024 Brain/Head without Contrast Normal [facility] CBC-Complete Blood Cnt No Di ffon 11-02-2024 Erythrocyte distribution width (RBC) [Ratio] 14.1 % Normal 11.6-14.6 [facility] Comment on above: Performed By: #### L 503.6620, L100.0500, L500.4050, L501.2450, L501.5425 ####[facility] [address] [place], [address] Hematocrit (Bld) [Volume fraction] 39.2 % Normal 37-47 [facility] Comment on above: Performed By: #### L 503.6620, L100.0500, L500.4050, L501.2450, L501.5425 ####[facility] [address] [place], [address] Hemoglobin (Bld) [Mass/Vol] 12.9 g/dL Normal 12.0-15.0 [facility] Comment on above: Performed By: #### L 503.6620, L100.0500, L500.4050, L501.2450, L501.5425 ####[facility] [address] [place], [address] MCH (RBC) [Entitic mass] 30.2 pg Normal 27.0-32.0 [facility] Comment on above: Performed By: #### L 503.6620, L100.0500, L500.4050, L501.2450, L501.5425 ####[facility] [address] [place], [address] MCHC (RBC) [Mass/Vol] 32.9 g/dL Normal 32-36 [facility] Comment on above: Performed By: #### L 503.6620, L100.0500, L500.4050, L501.2450, L501.5425 ####[facility] [address] [place], [address] MCV (RBC) [Entitic vol] 91.8 fL Normal 81-99 [facility] Comment on above: Performed By: #### L 503.6620, L100.0500, L500.4050, L501.2450, L501.5425 ####[facility] [address] [place], [address] Platelet mean volume (Bld) [Entitic vol] 11.2 fL Normal 6.2-12.0 [facility] Comment on above: Performed By: #### L 503.6620, L100.0500, L500.4050, L501.2450, L501.5425 ####[facility] [address] [place], [address] Platelets (Bld) [#/Vol] 138 10*3/uL Low 150-450 [facility] Comment on above: Performed By: #### L 503.6620, L100.0500, L500.4050, L501.2450, L501.5425 ####[facility] [address] [place], [address] RBC (Bld) [#/Vol] 4.27 10*6/uL Normal 4.2-5.4 [facility] Comment on above: Performed By: #### L 503.6620, L100.0500, L500.4050, L501.2450, L501.5425 ####[facility] [address] [place], [address] RDW SD 47.5 fl High 35.1-43.9 [facility] Comment on above: Performed By: #### L 503.6620, L100.0500, L500.4050, L501.2450, L501.5425 ####[facility] [address] [place], [address] WBC (Bld) [#/Vol] 12.7 10*3/uL High 4.4-11.0 [facility] Comment on above: Performed By: #### L 503.6620, L100.0500, L500.4050, L501.2450, L501.5425 ####[facility] [address] [place], [address] Chest 1 View (Portable)on Chest 1 View (Portable) Normal [facility] Comprehensive Metabolic Prof ilon 11-02-2024 Albumin [Mass/Vol] 4.0 g/dL Normal 3.2-5.0 [facility] Comment on above: Order Comment: 1Y Performed By: #### L 503.6620, L100.0500, L500.4050, L501.2450, L501.5425 ####[facility] [address] [place], [address] Albumin/Globulin [Mass ratio] 1.1 {ratio} Normal 0.9-2.4 [facility] Comment on above: Order Comment: 1Y Performed By: #### L 503.6620, L100.0500, L500.4050, L501.2450, L501.5425 ####[facility] [address] [place], [address] ALK P 64 U/L Normal 45-117 [facility] Comment on above: Order Comment: 1Y Performed By: #### L 503.6620, L100.0500, L500.4050, L501.2450, L501.5425 ####[facility] [address] [place], [address] ALT [Catalytic activity/Vol] 17 U/L Normal 13-56 [facility] Comment on above: Order Comment: 1Y Performed By: #### L 503.6620, L100.0500, L500.4050, L501.2450, L501.5425 ####[facility] [address] [place], [address] AST [Catalytic activity/Vol] 20 U/L Normal 15-37 [facility] Comment on above: Order Comment: 1Y Performed By: #### L 503.6620, L100.0500, L500.4050, L501.2450, L501.5425 ####[facility] [address] [place], [address] Bilirubin [Mass/Vol] 0.40 mg/dL Normal 0.20-1.00 [facility] Comment on above: Order Comment: 1Y Result Comment: For patients on eltrombopag therapy, use of Dimension [place] TBIL is not recommended. Performed By: #### L 503.6620, L100.0500, L500.4050, L501.2450, L501.5425 ####[facility] [address] [place], [address] BUN/CRE 23.1 RATIO High 10-20 [facility] Comment on above: Order Comment: 1Y Performed By: #### L 503.6620, L100.0500, L500.4050, L501.2450, L501.5425 ####[facility] [address] [place], [address] CA,Total 9.5 mg/dL Normal 8.5-10.1 [facility] Comment on above: Order Comment: 1Y Performed By: #### L 503.6620, L100.0500, L500.4050, L501.2450, L501.5425 ####[facility] [address] [place], [address] Chloride [Moles/Vol] 106 mmol/L Normal 98-107 [facility] Comment on above: Order Comment: 1Y Performed By: #### L 503.6620, L100.0500, L500.4050, L501.2450, L501.5425 ####[facility] [address] [place], [address] CO2 [Moles/Vol] 27.0 mmol/L Normal 21.0-32.0 [facility] Comment on above: Order Comment: 1Y Performed By: #### L 503.6620, L100.0500, L500.4050, L501.2450, L501.5425 ####[facility] [address] [place], [address] Creatinine [Mass/Vol] 1.30 mg/dL High 0.55-1.02 [facility] Comment on above: Order Comment: 1Y Result Comment: The validity of the calculated GFR GFRAA in patients over70 years has not been determined. Clinical correlation isessential. Performed By: #### L 503.6620, L100.0500, L500.4050, L501.2450, L501.5425 ####[facility] [address] [place], [address] ECRCL 38.97 ml/min Normal [facility] Comment on above: Order Comment: 1Y Performed By: #### L 503.6620, L100.0500, L500.4050, L501.2450, L501.5425 ####[facility] [address] [place], [address] EST GFR - AA 52 mL/min Low >60 [facility] Comment on above: Order Comment: 1Y Result Comment: Afri can Nepalese GFR Calc Performed By: #### L 503.6620, L100.0500, L500.4050, L501.2450, L501.5425 ####[facility] [address] [place], [address] GAP 5 Normal 5-15 [facility] Comment on above: Order Comment: 1Y Performed By: #### L 503.6620, L100.0500, L500.4050, L501.2450, L501.5425 ####[facility] [address] [place], [address] GFR/1.73 sq M.predicted among non-blacks MDRD (S/P/Bld) [Vol rate/Area] 43 mL/min/{1.73_m2} Low >60 [facility] Comment on above: Order Comment: 1Y Result Comment: Non- GFR Calc Performed By: #### L 503.6620, L100.0500, L500.4050, L501.2450, L501.5425 ####[facility] [address] [place], [address] Globulin (S) [Mass/Vol] 3.6 g/dL Normal 2.2-4.2 [facility] Comment on above: Order Comment: 1Y Performed By: #### L 503.6620, L100.0500, L500.4050, L501.2450, L501.5425 ####[facility] [address] [place], [address] Glucose [Mass/Vol] 224 mg/dL High 74-106 [facility] Comment on above: Order Comment: 1Y Result Comment: Gluc ose result greater than or equal to 200 mg/dLsuggests DIABETES MELLITUS per A.D.A. criteria. Performed By: #### L 503.6620, L100.0500, L500.4050, L501.2450, L501.5425 ####[facility] [address] [place], [address] Potassium [Moles/Vol] 4.4 mmol/L Normal 3.5-5.1 [facility] Comment on above: Order Comment: 1Y Performed By: #### L 503.6620, L100.0500, L500.4050, L501.2450, L501.5425 ####[facility] [address] [place], [address] Sodium [Moles/Vol] 138 mmol/L Normal 136-145 [facility] Comment on above: Order Comment: 1Y Performed By: #### L 503.6620, L100.0500, L500.4050, L501.2450, L501.5425 ####[facility] [address] [place], [address] T PROT 7.6 g/dL Normal 6.4-8.2 [facility] Comment on above: Order Comment: 1Y Performed By: #### L 503.6620, L100.0500, L500.4050, L501.2450, L501.5425 ####[facility] [address] [place], [address] Urea nitrogen [Mass/Vol] 30 mg/dL High 7-18 [facility] Comment on above: Order Comment: 1Y Performed By: #### L 503.6620, L100.0500, L500.4050, L501.2450, L501.5425 ####[facility] [address] [place], [address] Emergency Department Summary on 11-02-2024 Emergency Department Summary Normal [facility] L501.4020on 11-02-2024 TROPONIN-I HS 22 pg/mL Normal 3.0-54.0 [facility] Comment on above: Result Comment: Josy fay Note: New Test Units and Gender Specific Reference Ranges. For more information see Policy Stat Procedure [place] High Sensitivity Troponin (TNIH) and attachments. Performed By: #### L 501.4020 ####[facility] [address] [place], [address] L501.5425on 11-02-2024 TROPONIN-I HS 15 pg/mL Normal 3.0-54.0 [facility] Comment on above: Order Comment: 1Y Result Comment: Josy fay Note: New Test Units and Gender Specific Reference Ranges. For more information see Policy Stat Procedure [place] High Sensitivity Troponin (TNIH) and attachments. Performed By: #### L 503.6620, L100.0500, L500.4050, L501.2450, L501.5425 ####[facility] [address] [place], [address] Lipaseon 11-02-2024 Lipase [Catalytic activity/Vol] 41 U/L Normal 13-75 [facility] Comment on above: Order Comment: 1Y Result Comment: Josy fay note:LIPASE revised reference range effective 23.New Lipase methodology. Expected to produce lower valuesthan the previous assay method.NEW Reference Range: 13 - 75 U/L Performed By: #### L 503.6620, L100.0500, L500.4050, L501.2450, L501.5425 ####[facility] [address] [place], [address] M100.678on 11-02-2024 M100.678 Pending SARS-CoV-2 (COVID 19) Negative INFLUENZA A Negative INFLUENZA B Negative RSV PCR Negative Normal [facility] Comment on above: Performed By: #### M 100.678, L400.0001 ####[facility] [address] [place], [address] Urinalysis, Completeon 11-02 BACTERIA 0 SEEN Normal None Seen [facility] Comment on above: Order Comment: CLEAN CATCH Performed By: #### M 100.678, L400.0001 ####[facility] [address] [place], [address] EPI,SQUAMOUS 0 SEEN Normal 5-10 [facility] Comment on above: Order Comment: CLEAN CATCH Performed By: #### M 100.678, L400.0001 ####[facility] [address] [place], [address] Mucus Ql (Urine sed) 0 SEEN Normal [facility] Comment on above: Order Comment: CLEAN CATCH Performed By: #### M 100.678, L400.0001 ####[facility] [address] [place], [address] RBC 0 SEEN Normal 0-5 [facility] Comment on above: Order Comment: CLEAN CATCH Performed By: #### M 100.678, L400.0001 ####[facility] [address] [place], [address] WBC 0 SEEN Normal 0-5 [facility] Comment on above: Order Comment: CLEAN CATCH Performed By: #### M 100.678, L400.0001 ####[facility] [address] [place], [address] Gastroenterology Visit Repor ton 10-17-2024 Gastroenterology Visit Report Normal [facility] 36on 10-06-2024 36 Name of caller: Beatrice lobo Contact phone number: [phone] Relationship to Patient: spouse/[place] Provider: Dr. Lopez Practice: [facility] Chief Complaint/Reason for Call: Song wanted to ask Dr. Lopez to consider long covid for patient. States all the symptoms are there. Requesting a call back to discuss. Please advise. Best time of day caller can be reached: any Patient advised that office/PCP has 24-48 business hours to return their call: Normal [facility] Inital Evaluation (1) - PTon 09-27-2024 Inital Evaluation (1) - PT Normal [facility] MR/BMS.BVSon 09-14-2024 MR/BMS.BVS Normal [facility] 12 Lead EKGon 09-09-2024 12 Lead EKG Normal [facility] BNP,B-Type NATRIURETIC PEPTI Ingrid 09-09-2024 Natriuretic peptide B (Bld) [Mass/Vol] 40.9 pg/mL Normal 0-100 [facility] Comment on above: Performed By: #### L 300.4310, L503.6620, L300.3900, L300.8000 ####[facility] [address] [place], [address] Basic Metabolic Profile (BMP )on 09-09-2024 BUN/CRE 36.1 RATIO High - [facility] Comment on above: Performed By: #### L 100.0100, L500.2500 ####[facility] [address] [place], [address] CA,Total 9.4 mg/dL Normal 8.5-10.1 [facility] Comment on above: Performed By: #### L 100.0100, L500.2500 ####[facility] [address] [place], [address] Chloride [Moles/Vol] 106 mmol/L Normal 98-107 [facility] Comment on above: Performed By: #### L 100.0100, L500.2500 ####[facility] [address] [place], [address] CO2 [Moles/Vol] 28.0 mmol/L Normal 21.0-32.0 [facility] Comment on above: Performed By: #### L 100.0100, L500.2500 ####[facility] [address] [place], [address] Creatinine [Mass/Vol] 1.22 mg/dL High 0.55-1.02 [facility] Comment on above: Result Comment: The validity of the calculated GFR GFRAA in patients over70 years has not been determined. Clinical correlation isessential. Performed By: #### L 100.0100, L500.2500 ####[facility] [address] [place], [address] ECRCL 41.66 ml/min Normal [facility] Comment on above: Performed By: #### L 100.0100, L500.2500 ####[facility] [address] [place], [address] EST GFR - AA 56 mL/min Low >60 [facility] Comment on above: Result Comment: Afri can Nepalese GFR Calc Performed By: #### L 100.0100, L500.2500 ####[facility] [address] [place], [address] GAP 5 Normal 5-15 [facility] Comment on above: Performed By: #### L 100.0100, L500.2500 ####[facility] [address] [place], [address] GFR/1.73 sq M.predicted among non-blacks MDRD (S/P/Bld) [Vol rate/Area] 46 mL/min/{1.73_m2} Low >60 [facility] Comment on above: Result Comment: Non- GFR Calc Performed By: #### L 100.0100, L500.2500 ####[facility] [address] [place], [address] Glucose [Mass/Vol] 231 mg/dL High 74-106 [facility] Comment on above: Result Comment: Gluc ose result greater than or equal to 200 mg/dLsuggests DIABETES MELLITUS per A.D.A. criteria. Performed By: #### L 100.0100, L500.2500 ####[facility] [address] [place], [address] Potassium [Moles/Vol] 4.8 mmol/L Normal 3.5-5.1 [facility] Comment on above: Performed By: #### L 100.0100, L500.2500 ####[facility] [address] [place], [address] Sodium [Moles/Vol] 139 mmol/L Normal 136-145 [facility] Comment on above: Performed By: #### L 100.0100, L500.2500 ####[facility] [address] [place], [address] Urea nitrogen [Mass/Vol] 44 mg/dL High 7-18 [facility] Comment on above: Performed By: #### L 100.0100, L500.2500 ####[facility] [address] [place], [address] CBC W/Diff, Automatedon 10-1 Absolute Neut Normal 2.0-7.7 [facility] Comment on above: Result Comment: DUPL ICATES Performed By: #### L 100.0100, L501.5425 ####[facility] [address] [place], [address] HCT Normal 37-47 [facility] Comment on above: Result Comment: DUPL ICATES Performed By: #### L 100.0100, L501.5425 ####[facility] [address] [place], [address] HGB Normal 12.0-15.0 [facility] Comment on above: Result Comment: DUPL ICATES Performed By: #### L 100.0100, L501.5425 ####[facility] [address] [place], [address] MCH Normal 27.0-32.0 [facility] Comment on above: Result Comment: DUPL ICATES Performed By: #### L 100.0100, L501.5425 ####[facility] [address] [place], [address] MCHC Normal 32-36 [facility] Comment on above: Result Comment: DUPL ICATES Performed By: #### L 100.0100, L501.5425 ####[facility] [address] [place], [address] MCV Normal 81-99 [facility] Comment on above: Result Comment: DUPL ICATES Performed By: #### L 100.0100, L501.5425 ####[facility] [address] [place], [address] NEUT% Normal 47-70 [facility] Comment on above: Result Comment: DUPL ICATES Performed By: #### L 100.0100, L501.5425 ####[facility] [address] [place], [address] PLT Normal 150-450 [facility] Comment on above: Result Comment: DUPL ICATES Performed By: #### L 100.0100, L501.5425 ####[facility] [address] [place], [address] RBC Normal 4.2-5.4 [facility] Comment on above: Result Comment: DUPL ICATES Performed By: #### L 100.0100, L501.5425 ####[facility] [address] [place], [address] RDW CV Normal 11.6-14.6 [facility] Comment on above: Result Comment: DUPL ICATES Performed By: #### L 100.0100, L501.5425 ####[facility] [address] [place], [address] RDW SD Normal 35.1-43.9 [facility] Comment on above: Result Comment: DUPL ICATES Performed By: #### L 100.0100, L501.5425 ####[facility] [address] [place], [address] WBC Normal 4.4-11.0 [facility] Comment on above: Result Comment: DUPL ICATES Performed By: #### L 100.0100, L501.5425 ####[facility] [address] [place], [address] Absolute Lymph 2.53 X10 3/uL Normal 0.83-4.51 [facility] Comment on above: Performed By: #### L 100.0100, L500.2500 ####[facility] [address] [place], [address] Absolute Neut 3.4 X10 3/uL Normal 2.0-7.7 [facility] Comment on above: Performed By: #### L 100.0100, L500.2500 ####[facility] [address] [place], [address] Basophils/100 WBC (Bld) 0.3 % Normal 0-1 [facility] Comment on above: Performed By: #### L 100.0100, L500.2500 ####[facility] [address] [place], [address] Eosinophils/100 WBC (Bld) 0.8 % Normal 0-5 [facility] Comment on above: Performed By: #### L 100.0100, L500.2500 ####[facility] [address] [place], [address] Erythrocyte distribution width (RBC) [Ratio] 13.8 % Normal 11.6-14.6 [facility] Comment on above: Performed By: #### L 100.0100, L500.2500 ####[facility] [address] [place], [address] Hematocrit (Bld) [Volume fraction] 37.4 % Normal 37-47 [facility] Comment on above: Performed By: #### L 100.0100, L500.2500 ####[facility] [address] [place], [address] Hemoglobin (Bld) [Mass/Vol] 12.0 g/dL Normal 12.0-15.0 [facility] Comment on above: Performed By: #### L 100.0100, L500.2500 ####[facility] [address] [place], [address] IG% 0.200 Normal 0.0-0.9 [facility] Comment on above: Result Comment: IG% - Immature Granulocytes (promyelocytes, myelocytes andmetamyelocytes) > 1% indicates that a LEFT SHIFT is Present. Performed By: #### L 100.0100, L500.2500 ####[facility] [address] [place], [address] Lymphocytes/100 WBC (Bld) 38.6 % Normal 19-41 [facility] Comment on above: Performed By: #### L 100.0100, L500.2500 ####[facility] [address] [place], [address] MCH (RBC) [Entitic mass] 30.0 pg Normal 27.0-32.0 [facility] Comment on above: Performed By: #### L 100.0100, L500.2500 ####[facility] [address] [place], [address] MCHC (RBC) [Mass/Vol] 32.1 g/dL Normal 32-36 [facility] Comment on above: Performed By: #### L 100.0100, L500.2500 ####[facility] [address] [place], [address] MCV (RBC) [Entitic vol] 93.5 fL Normal 81-99 [facility] Comment on above: Performed By: #### L 100.0100, L500.2500 ####[facility] [address] [place], [address] Monocytes/100 WBC (Bld) 8.5 % Normal 0-10 [facility] Comment on above: Performed By: #### L 100.0100, L500.2500 ####[facility] [address] [place], [address] Neutrophils/100 WBC (Bld) 51.6 % Normal 47-70 [facility] Comment on above: Performed By: #### L 100.0100, L500.2500 ####[facility] [address] [place], [address] Nucleated RBC (Bld) [#/Vol] 0 10*3/uL Normal 0-5 [facility] Comment on above: Performed By: #### L 100.0100, L500.2500 ####[facility] [address] [place], [address] Platelet mean volume (Bld) [Entitic vol] 10.4 fL Normal 6.2-12.0 [facility] Comment on above: Performed By: #### L 100.0100, L500.2500 ####[facility] [address] [place], [address] Platelets (Bld) [#/Vol] 167 10*3/uL Normal 150-450 [facility] Comment on above: Performed By: #### L 100.0100, L500.2500 ####[facility] [address] [place], [address] RBC (Bld) [#/Vol] 4.00 10*6/uL Low 4.2-5.4 [facility] Comment on above: Performed By: #### L 100.0100, L500.2500 ####[facility] [address] [place], [address] RDW SD 47.0 fl High 35.1-43.9 [facility] Comment on above: Performed By: #### L 100.0100, L500.2500 ####[facility] [address] [place], [address] WBC (Bld) [#/Vol] 6.6 10*3/uL Normal 4.4-11.0 [facility] Comment on above: Performed By: #### L 100.0100, L500.2500 ####[facility] [address] [place], [address] CTA Chest W/WO Contraston CTA Chest W/WO Contrast Normal [facility] Chest PA and Lateralon 09-09 Chest PA and Lateral Normal [facility] D-Dimer Quantitative (DVT/PE )on 09-09-2024 D-DIMER QUANT 0.72 FEU/ug/m Invalid Interpretation Code 0.27-0.49 [facility] Comment on above: Result Comment: CRIT ICAL VALUE CALLED TO ENEDELIA GARCIA RN ER09/09/24 1616 Adrienne Orozco.RESULTS READ BACK BY SAME .D-Dimer ELEVATED (>0.49): Additional studies and clinicalassessments are indicated to conclude diagnosis of:Deep Vein Thrombosis (DVT) or Pulmonary Embolism (PE) Performed By: #### L 300.4310, L503.6620, L300.3900, L300.8000 ####[facility] [address] [place], [address] Emergency Department Summary on 09-09-2024 Emergency Department Summary Normal [facility] L501.4020on 09-09-2024 TROPONIN-I HS 7 pg/mL Normal 3.0-54.0 [facility] Comment on above: Result Comment: Plea se Note: New Test Units and Gender Specific Reference Ranges. For more information see Policy Stat Procedure [place] High Sensitivity Troponin (TNIH) and attachments. Performed By: #### L 501.4020 ####[facility] [address] [place], [address] L501.5425on 09-09-2024 TROPONIN-I HS 5 pg/mL Normal 3.0-54.0 [facility] Comment on above: Order Comment: 1Y Result Comment: Josy fay Note: New Test Units and Gender Specific Reference Ranges. For more information see Policy Stat Procedure [place] High Sensitivity Troponin (TNIH) and attachments. Performed By: #### L 100.0100, L501.5425 ####[facility] [address] [place], [address] Partial Thromboplast Timeon 09-09-2024 aPTT Coag (Bld) [Time] 21.2 s Low 24.1-36.2 [facility] Comment on above: Performed By: #### L 300.4310, L503.6620, L300.3900, L300.8000 ####[facility] [address] [place], [address] Prothrombin Time w/INRon INR Coag (PPP) [Relative time] 1.0 {INR} Normal [facility] Comment on above: Performed By: #### L 300.4310, L503.6620, L300.3900, L300.8000 ####[facility] [address] [place], [address] PT Coag (PPP) [Time] 13.3 s Normal 11.7-14.9 [facility] Comment on above: Performed By: #### L 300.4310, L503.6620, L300.3900, L300.8000 ####[facility] [address] 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 CHEST: * Subpleural thickening with parenchymal scarring involving the right hemidiaphragm is not substantially FDG avid, with evaluation slightly limited secondary to respiratory motion. Continued close attention on follow-up diagnostic chest CT recommended. * Previously described pulmonary nodules measuring up to 4 mm are below PET resolution, better evaluated on diagnostic chest CT. ABDOMEN/PELVIS: * No metabolically active disease. * Excreted activity is noted within a prominent left renal superior pole calyx, which may be related to mass effect from an adjacent 5 cm cyst. * Ectasia of the infrarenal abdominal aorta measures up to 2.6 cm. MUSCULOSKELETAL: * No metabolically active disease. Salesperson Neckties: PSCB Transcribe Date/Time: Aug 14 2024 12:13P Dictated by : RICK BOLAND MD This examination was interpreted and the report reviewed and electronically signed by: RICK BOLAND MD on Aug 14 2024 12:56PM [facility] * * *Final Report* * * DATE OF EXAM: Aug 13 2024 1:08PM [facility] 0060 - NM PET/CT SKULL-THIGH INIT / PROCEDURE REASON: EMPHYSEMA * * * * Physician Interpretation * * * * EXAMINATION: BODY FDG PET-CT CLINICAL HISTORY: Right lower hemidiaphragm subpleural thickening with parenchymal scarring. EXAM CATEGORY: Initial treatment strategy. TECHNIQUE: Radiopharmaceutical was administered intravenously followed by PET imaging from the eyes to thighs. Free breathing, low dose CT of the same body region was acquired without IV contrast for attenuation correction and anatomic localization. Unenhanced imaging is limited for the evaluation of some pathology and the acquired CT was not designed to produce diagnostic CT scan quality. Physiologic/non-pathologic uptake in some body regions could confound or obscure some pathology. * CT Dose-Length Product (DLP): 258 mGy*cm * CT Dose Reduction Employed: Yes * Blood glucose: 149 mg/dL * Injected activity: 6.4 mCi * Uptake Time: 47 minutes * Radiopharmaceutical: L96-Dnqtizlxatspfytclf (FDG) COMPARISON: No previous FDG PET/CT available CORRELATION: CT chest 07/21/2024 RESULT: REFERENCES: FDG uptake is used as a surrogate marker for glucose metabolism. All reported standardized uptake values represent maximum SUV (SUVmax) per body weight, unless otherwise specified. SUV reference values, as follows: * Blood Pool (Descending Aorta): SUVmax 2.2 * Background Liver: SUVmax 3.0; SUVmean 2.3 Localizer Images: No additional findings. HEAD AND NECK: Head: No radiotracer avid lesion or mass effect in the imaged intracranial compartment. Aerodigestive Tract: No radiotracer avid lesion. Intense oral uptake is likely physiologic. Lymph Nodes: No radiotracer avid lymphadenopathy. Neck Soft Tissues: No radiotracer avid thyroid nodule. CHEST: Lungs & Pleura: Subpleural thickening with parenchymal scarring involving the right hemidiaphragm is not substantially FDG avid, with uptake in this region measuring SUV max 1.8, evaluation slightly limited secondary to respiratory motion. Previously described pulmonary nodules measuring up to 4 mm are below PET resolution, better evaluated on diagnostic chest CT. Emphysema. No pleural effusion. Lymph Nodes: No radiotracer avid lymphadenopathy. Mediastinum: No radiotracer avid mass. Cardiovascular: Blood pool activity. No pericardial effusion. Normal heart size. Thoracic aortic and coronary artery calcifications. Left chest wall cardiac pacing device. Chest Wall: No radiotracer avid soft tissue lesion. ABDOMEN AND PELVIS: Hepatobiliary: No radiotracer avid lesion. No measurable mass. Cholecystectomy. Physiologic pneumobilia. Spleen: No radiotracer avid lesion. No splenomegaly. Pancreas: No radiotracer avid lesion. Adrenals: No radiotracer avid nodule. Urinary Tract: Physiologic radiotracer excretion in the renal collecting systems and urinary bladder. Excreted activity is noted within a prominent left renal superior pole calyx, which may be related to mass effect from an adjacent 5 cm cyst. No hydronephrosis. Photopenic presumed renal cyst(s). GI Tract: No radiotracer avid lesion. No bowel dilation. Colonic diverticulosis. Peritoneum: No radiotracer avid lesion. No ascites. Lymph Nodes: No radiotracer avid lymphadenopathy. Vasculature: Blood pool activity. Atherosclerotic calcifications. Ectasia of the infrarenal abdominal aorta measures up to 2.6 cm in axial dimension. Pelvic Organs: No radiotracer avid lesion. MUSCULOSKELETAL: Bones: No radiotracer avid lesion. No lytic or sclerotic lesion. Degenerative changes. Soft Tissues: No radiotracer avid lesion. [facility] Provider, Jeremias Cruz - 08/14/2024 * * *Final Report* * * DATE OF EXAM: Aug 13 2024 1:08PM [facility] 0060 - NM PET/CT SKULL-THIGH INIT / PROCEDURE REASON: EMPHYSEMA * * * * Physician Interpretation * * * * EXAMINATION: BODY FDG PET-CT CLINICAL HISTORY: Right lower hemidiaphragm subpleural thickening with parenchymal scarring. EXAM CATEGORY: Initial treatment strategy. TECHNIQUE: Radiopharmaceutical was administered intravenously followed by PET imaging from the eyes to thighs. Free breathing, low dose CT of the same body region was acquired without IV contrast for attenuation correction and anatomic localization. Unenhanced imaging is limited for the evaluation of some pathology and the acquired CT was not designed to produce diagnostic CT scan quality. Physiologic/non-pathologic uptake in some body regions could confound or obscure some pathology. * CT Dose-Length Product (DLP): 258 mGy*cm * CT Dose Reduction Employed: Yes * Blood glucose: 149 mg/dL * Injected activity: 6.4 mCi * Uptake Time: 47 minutes * Radiopharmaceutical: L70-Rdumqgrlqwszbeptvj (FDG) COMPARISON: No previous FDG PET/CT available CORRELATION: CT chest 07/21/2024 RESULT: REFERENCES: FDG uptake is used as a surrogate marker for glucose metabolism. All reported standardized uptake values represent maximum SUV (SUVmax) per body weight, unless otherwise specified. SUV reference values, as follows: * Blood Pool (Descending Aorta): SUVmax 2.2 * Background Liver: SUVmax 3.0; SUVmean 2.3 Localizer Images: No additional findings. HEAD AND NECK: Head: No radiotracer avid lesion or mass effect in the imaged intracranial compartment. Aerodigestive Tract: No radiotracer avid lesion. Intense oral uptake is likely physiologic. Lymph Nodes: No radiotracer avid lymphadenopathy. Neck Soft Tissues: No radiotracer avid thyroid nodule. CHEST: Lungs & Pleura: Subpleural thickening with parenchymal scarring involving the right hemidiaphragm is not substantially FDG avid, with uptake in this region measuring SUV max 1.8, evaluation slightly limited secondary to respiratory motion. Previously described pulmonary nodules measuring up to 4 mm are below PET resolution, better evaluated on diagnostic chest CT. Emphysema. No pleural effusion. Lymph Nodes: No radiotracer avid lymphadenopathy. Mediastinum: No radiotracer avid mass. Cardiovascular: Blood pool activity. No pericardial effusion. Normal heart size. Thoracic aortic and coronary artery calcifications. Left chest wall cardiac pacing device. Chest Wall: No radiotracer avid soft tissue lesion. ABDOMEN AND PELVIS: Hepatobiliary: No radiotracer avid lesion. No measurable mass. Cholecystectomy. Physiologic pneumobilia. Spleen: No radiotracer avid lesion. No splenomegaly. Pancreas: No radiotracer avid lesion. Adrenals: No radiotracer avid nodule. Urinary Tract: Physiologic radiotracer excretion in the renal collecting systems and urinary bladder. Excreted activity is noted within a prominent left renal superior pole calyx, which may be related to mass effect from an adjacent 5 cm cyst. No hydronephrosis. Photopenic presumed renal cyst(s). GI Tract: No radiotracer avid lesion. No bowel dilation. Colonic diverticulosis. Peritoneum: No radiotracer avid lesion. No ascites. Lymph Nodes: No radiotracer avid lymphadenopathy. Vasculature: Blood pool activity. Atherosclerotic calcifications. Ectasia of the infrarenal abdominal aorta measures up to 2.6 cm in axial dimension. Pelvic Organs: No radiotracer avid lesion. MUSCULOSKELETAL: Bones: No radiotracer avid lesion. No lytic or sclerotic lesion. Degenerative changes. Soft Tissues: No radiotracer avid lesion. IMPRESSION IMPRESSION: HEAD/NECK: * No metabolically active disease. CHEST: * Subpleural thickening with parenchymal scarring involving the right hemidiaphragm is not substantially FDG avid, with evaluation slightly limited secondary to respiratory motion. Continued close attention on follow-up diagnostic chest CT recommended. * Previously described pulmonary nodules measuring up to 4 mm are below PET resolution, better evaluated on diagnostic chest CT. ABDOMEN/PELVIS: * No metabolically active disease. * Excreted activity is noted within a prominent left renal superior pole calyx, which may be related to mass effect from an adjacent 5 cm cyst. * Ectasia of the infrarenal abdominal aorta measures up to 2.6 cm. MUSCULOSKELETAL: * No metabolically active disease. 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 Inaccurate results may also occur from other interfering factors, such as N-acetylcysteine (blood concentrations of greater than 5mg/dL), galactose, extremes of hematocrit (<10 or >65), or high doses of ascorbic acid (vitamin C) greater than 3mg/dL. Consider alternate testing mechanisms (e.g. core lab, blood gas instrument) in the above situations. Interpretation and review of laboratory results Abnormal [facility] NM PET/CT SKULL-THIGH INITon 08-13-2024 NM PET/CT SKULL-THIGH INIT * * *Final Report* * * DATE OF EXAM: Aug 13 2024 1:08PM [facility] 0060 - NM PET/CT SKULL-THIGH INIT / PROCEDURE REASON: EMPHYSEMA * * * * Physician Interpretation * * * * EXAMINATION: BODY FDG PET-CT CLINICAL HISTORY: Right lower hemidiaphragm subpleural thickening with parenchymal scarring. EXAM CATEGORY: Initial treatment strategy. TECHNIQUE: Radiopharmaceutical was administered intravenously followed by PET imaging from the eyes to thighs. Free breathing, low dose CT of the same body region was acquired without IV contrast for attenuation correction and anatomic localization. Unenhanced imaging is limited for the evaluation of some pathology and the acquired CT was not designed to produce diagnostic CT scan quality. Physiologic/non-pathologic uptake in some body regions could confound or obscure some pathology. * CT Dose-Length Product (DLP): 258 mGy*cm * CT Dose Reduction Employed: Yes * Blood glucose: 149 mg/dL * Injected activity: 6.4 mCi * Uptake Time: 47 minutes * Radiopharmaceutical: [id number] (FDG) COMPARISON: No previous FDG PET/CT available CORRELATION: CT chest 07/21/2024 RESULT: REFERENCES: FDG uptake is used as a surrogate marker for glucose metabolism. All reported standardized uptake values represent maximum SUV (SUVmax) per body weight, unless otherwise specified. SUV reference values, as follows: * Blood Pool (Descending Aorta): SUVmax 2.2 * Background Liver: SUVmax 3.0; SUVmean 2.3 Localizer Images: No additional findings. HEAD AND NECK: Head: No radiotracer avid lesion or mass effect in the imaged intracranial compartment. Aerodigestive Tract: No radiotracer avid lesion. Intense oral uptake is likely physiologic. Lymph Nodes: No radiotracer avid lymphadenopathy. Neck Soft Tissues: No radiotracer avid thyroid nodule. CHEST: Lungs and Pleura: Subpleural thickening with parenchymal scarring involving the right hemidiaphragm is not substantially FDG avid, with uptake in this region measuring SUV max 1.8, evaluation slightly limited secondary to respiratory motion. Previously described pulmonary nodules measuring up to 4 mm are below PET resolution, better evaluated on diagnostic chest CT. Emphysema. No pleural effusion. Lymph Nodes: No radiotracer avid lymphadenopathy. Mediastinum: No radiotracer avid mass. Cardiovascular: Blood pool activity. No pericardial effusion. Normal heart size. Thoracic aortic and coronary artery calcifications. Left chest wall cardiac pacing device. Chest Wall: No radiotracer avid soft tissue lesion. ABDOMEN AND PELVIS: Hepatobiliary: No radiotracer avid lesion. No measurable mass. Cholecystectomy. Physiologic pneumobilia. Spleen: No radiotracer avid lesion. No splenomegaly. Pancreas: No radiotracer avid lesion. Adrenals: No radiotracer avid nodule. Urinary Tract: Physiologic radiotracer excretion in the renal collecting systems and urinary bladder. Excreted activity is noted within a prominent left renal superior pole calyx, which may be related to mass effect from an adjacent 5 cm cyst. No hydronephrosis. Photopenic presumed renal cyst(s). GI Tract: No radiotracer avid lesion. No bowel dilation. Colonic diverticulosis. Peritoneum: No radiotracer avid lesion. No ascites. Lymph Nodes: No radiotracer avid lymphadenopathy. Vasculature: Blood pool activity. Atherosclerotic calcifications. Ectasia of the infrarenal abdominal aorta measures up to 2.6 cm in axial dimension. Pelvic Organs: No radiotracer avid lesion. MUSCULOSKELETAL: Bones: No radiotracer avid lesion. No lytic or sclerotic lesion. Degenerative changes. Soft Tissues: No radiotracer avid lesion. IMPRESSION: HEAD/NECK: * No metabolically active disease. CHEST: * Subpleural thickening with parenchymal scarring involving the right hemidiaphragm is not substantially FDG avid, with evaluation slightly limited secondary to respiratory motion. Continued close attention on follow-up diagnostic chest CT recommended. * Previously described pulmonary nodules measuring up to 4 mm are below PET resolution, better evaluated on diagnostic chest CT. ABDOMEN/PELVIS: * No metabolically active disease. * Excreted activity is noted within a prominent left renal superior pole calyx, which may be related to mass effect from an adjacent 5 cm cyst. * Ectasia of the infrarenal abdominal aorta measures up to 2.6 cm. MUSCULOSKELETAL: * No metabolically active disease. 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 She is now using a walker while a couple of weeks ago she was independent. Could she benefit from physical therapy? States today's blood pressure is 106/74 and yesterdays was 116/67, heart rate 74, yesterday was 80, and oxygen level 99%, yesterday 96%. States her weight was up 2 pounds from yesterday and will give her lasix 20mg prn per order. Eating and drinking as normal. Bowel as normal with Miralax, urine as normal. States that stock repairer states he thinks her left side pain could be from a hernia. R: advised note will be sent to office and to call back with any further questions or concerns. Patient understands care advice. No further needs at this time. Patient instructed to call back with new or worsening symptoms. Reason for Disposition ? [1] Caller requesting NON-URGENT health information AND [2] PCP's office is the best resource Protocols used: Information Only Call - No [id number] S: Patient , Song, spoke with CAC nurse regarding no improvement on weakness or fatigue B: Onset of symptoms/concern 08/04/24 A: States they wanted to give status update on patient. Song states no improvement of weakness or fatigue after seeing casing splitter or vascular surgeon. States patient will be seeing stock repairer today at 230. Declined triage as they only wanted to give update on patient. R: Song understands care advice that a message will be sent to office as office is currently closed for lunch. No further needs at this time. Patient instructed to call back with new or worsening symptoms. Reason for Disposition ? [1] Caller requesting NON-URGENT health information AND [2] PCP's office is the best resource Protocols used: Information Only Call - No [id number] Visit Reporton Cardiology Visit Report Normal [facility] MR/BMS.BVSon 08-03-2024 MR/BMS.BVS Normal [facility] Oncology Visit Reporton 07-23 Oncology Visit Report Normal [facility] CT Chest WO contrastOrdered By: Ccf Provider on 07-25-2024 Interpretation and review of laboratory results Abnormal [facility] Radiology Result ACTIONABLE Abnormal [facility] Comment on above: This report contains an incidental or actionable finding. This finding may be a new finding separate from the reason your provider ordered the imaging test or it may be an already known finding that needs additional or continued follow-up. Because of this incidental or actionable finding, you may need another test (imaging or a different type of test). Please contact your provider for the next steps. [facility] CT Chest WO contraston 07-25 IMPRESSION: Emphysem a, with mild, diffuse bronchiectasis. Subcentimeter pulmonary nodules, measuring up to 4 mm in size. Additionally, there is subpleural thickening with parenchymal scarring seen involving the right lower hemidiaphragm, measuring approximately 5.5 x 2.0 cm. Consider PET-CT examination for further evaluation. Prominent, less than 1 cm mediastinal lymph nodes, likely reactive. ACTIONABLE RESULT: FOLLOW-UP Acuity: Actionable Findings: Thoracic-Other Routing Code: CT_1 Recommendation: NM PET/MR WHOLE BODY ([id number]) Time Frame: At the discretion of the clinical team. COMMUNICATION: Results will be communicated with the ordering provider via [employer] staff message or phone message by Imaging Support Services within 2 business days of report finalization. --END OF FINDING-- Salesperson Neckties: MARC Transcribe Date/Time: Jul 25 2024 7:50A Dictated by : LEAL SCHULZ MD This examination was interpreted and the report reviewed and electronically signed by: LELA SCHULZ MD on Jul 25 2024 3:53PM [facility] RADIOLOGY * * *Final Report* * * DATE OF EXAM: Jul 21 2024 12:08PM [facility] 0541 - CT CHEST WO IVCON / PROCEDURE REASON: R91.1 PULMONARY NODULE * * * * Physician Interpretation * * * * EXAMINATION: CHEST CT WITHOUT CONTRAST CLINICAL HISTORY: Pulmonary nodule Technique: Spiral CT acquisition of the chest from the thoracic inlet to the upper abdomen without contrast. MQ: CTCWO_6 CT Radiation dose: Integrated Dose-length product (DLP) for this visit = 293.03 mGy*cm CT Dose Reduction Employed: Automated exposure control(AEC) and iterative recon Comparison: Type of study and date/time RESULT: Limitations: None. Lines, tubes, and devices: There is a generator pack seen within the subcutaneous tissues of the left upper chest, causing streak artifact. Lung parenchyma and airways: There is mild, diffuse bronchiectasis. There is biapical fibrosis. There are subcentimeter indeterminate pulmonary nodules. For example, there is an approximately 3 mm subpleural nodule seen within the left upper lobe (series 2, image #47). There is an approximately 3 mm nodule within the anterior segment of the right upper lobe (series 2, image #130). Other subcentimeter pulmonary nodules are also seen. For example, there is an approximately 4 mm subpleural nodule within the right upper lobe (series 2, image #74). There is no pneumothorax or endobronchial lesion. Subpleural thickening, with parenchymal scarring is seen involving the right lower hemidiaphragm, measuring approximately 5.5 x 2.0 cm (series 2, image #216). Consider PET-CT examination for further evaluation. Pleural space: Trace bilateral pleural effusions. Lower neck, lymph nodes, and mediastinum: There are prominent, less than 1 cm mediastinal lymph nodes, likely reactive. No karina axillary or hilar lymphadenopathy is identified. Heart, pericardium, and thoracic vessels: Atherosclerotic calcifications are present within the thoracic aorta and coronary arteries. The heart is normal in size. There is no significant pericardial effusion. Bones and soft tissues: There is osteopenia, scoliosis, and multilevel degenerative change seen within the thoracic spine. 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 Vacuum disc phenomena is seen at multiple levels within the thoracic spine. Upper abdomen: Contents are seen within a somewhat distended stomach. Mild, nonspecific thickening of the left adrenal gland. There is left renal cortical scarring, with associated left-sided hydronephrosis. Partially visualized left renal cyst. [facility] RADIOLOGY Provider, [facility] - 07/25/2024 * * *Final Report* * * DATE OF EXAM: Jul 21 2024 12:[facility] WO IVCON / PROCEDURE REASON: R91.1 PULMONARY NODULE * * * * Physician Interpretation * * * * EXAMINATION: CHEST CT WITHOUT CONTRAST CLINICAL HISTORY: Pulmonary nodule Technique: Spiral CT acquisition of the chest from the thoracic inlet to the upper abdomen without contrast. MQ: CTCWO_6 CT Radiation dose: Integrated Dose-length product (DLP) for this visit = 293.03 mGy*cm CT Dose Reduction Employed: Automated exposure control(AEC) and iterative recon Comparison: Type of study and date/time RESULT: Limitations: None. Lines, tubes, and devices: There is a generator pack seen within the subcutaneous tissues of the left upper chest, causing streak artifact. Lung parenchyma and airways: There is mild, diffuse bronchiectasis. There is biapical fibrosis. There are subcentimeter indeterminate pulmonary nodules. For example, there is an approximately 3 mm subpleural nodule seen within the left upper lobe (series 2, image #47). There is an approximately 3 mm nodule within the anterior segment of the right upper lobe (series 2, image #130). Other subcentimeter pulmonary nodules are also seen. For example, there is an approximately 4 mm subpleural nodule within the right upper lobe (series 2, image #74). There is no pneumothorax or endobronchial lesion. Subpleural thickening, with parenchymal scarring is seen involving the right lower hemidiaphragm, measuring approximately 5.5 x 2.0 cm (series 2, image #216). Consider PET-CT examination for further evaluation. Pleural space: Trace bilateral pleural effusions. Lower neck, lymph nodes, and mediastinum: There are prominent, less than 1 cm mediastinal lymph nodes, likely reactive. No karina axillary or hilar lymphadenopathy is identified. Heart, pericardium, and thoracic vessels: Atherosclerotic calcifications are present within the thoracic aorta and coronary arteries. The heart is normal in size. There is no significant pericardial effusion. Bones and soft tissues: There is osteopenia, scoliosis, and multilevel degenerative change seen within the thoracic spine. 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 Vacuum disc phenomena is seen at multiple levels within the thoracic spine. Upper abdomen: Contents are seen within a somewhat distended stomach. Mild, nonspecific thickening of the left adrenal gland. There is left renal cortical scarring, with associated left-sided hydronephrosis. Partially visualized left renal cyst. IMPRESSION IMPRESSION: Emphysema, with mild, diffuse bronchiectasis. Subcentimeter pulmonary nodules, measuring up to 4 mm in size. Additionally, there is subpleural thickening with parenchymal scarring seen involving the right lower hemidiaphragm, measuring approximately 5.5 x 2.0 cm. Consider PET-CT examination for further evaluation. Prominent, less than 1 cm mediastinal lymph nodes, likely reactive. ACTIONABLE RESULT: FOLLOW-UP Acuity: Actionable Findings: Thoracic-Other Routing Code: CT_1 Recommendation: NM PET/MR WHOLE BODY ([id number]) Time Frame: At the discretion of the clinical team. COMMUNICATION: Results will be communicated with the ordering provider via [employer] staff message or phone message by Imaging Support Services within 2 business days of report finalization. --END OF FINDING-- Salesperson Neckties: MARC Transcribe Date/Time: Jul 25 2024 7:50A Dictated by : LELA SCHULZ MD This examination was interpreted and the report reviewed and electronically signed by: LELA SCHULZ MD on Jul 25 2024 3:53PM [facility] Pacemaker Checkon 07-25-2024 Pacemaker Check Normal [facility] CT CHEST WO IVCONon 07-21-[address] CHEST WO IVCON * * *Final Report* * * DATE OF EXAM: Jul 21 2024 12:08PM [facility] 0541 - CT CHEST WO IVCON / PROCEDURE REASON: R91.1 PULMONARY NODULE * * * * Physician Interpretation * * * * EXAMINATION: CHEST CT WITHOUT CONTRAST CLINICAL HISTORY: Pulmonary nodule Technique: Spiral CT acquisition of the chest from the thoracic inlet to the upper abdomen without contrast. MQ: CTCWO_6 CT Radiation dose: Integrated Dose-length product (DLP) for this visit = 293.03 mGy*cm CT Dose Reduction Employed: Automated exposure control(AEC) and iterative recon Comparison: Type of study and date/time RESULT: Limitations: None. Lines, tubes, and devices: There is a generator pack seen within the subcutaneous tissues of the left upper chest, causing streak artifact. Lung parenchyma and airways: There is mild, diffuse bronchiectasis. There is biapical fibrosis. There are subcentimeter indeterminate pulmonary nodules. For example, there is an approximately 3 mm subpleural nodule seen within the left upper lobe (series 2, image #47). There is an approximately 3 mm nodule within the anterior segment of the right upper lobe (series 2, image #130). Other subcentimeter pulmonary nodules are also seen. For example, there is an approximately 4 mm subpleural nodule within the right upper lobe (series 2, image #74). There is no pneumothorax or endobronchial lesion. Subpleural thickening, with parenchymal scarring is seen involving the right lower hemidiaphragm, measuring approximately 5.5 x 2.0 cm (series 2, image #216). Consider PET-CT examination for further evaluation. Pleural space: Trace bilateral pleural effusions. Lower neck, lymph nodes, and mediastinum: There are prominent, less than 1 cm mediastinal lymph nodes, likely reactive. No karina axillary or hilar lymphadenopathy is identified. Heart, pericardium, and thoracic vessels: Atherosclerotic calcifications are present within the thoracic aorta and coronary arteries. The heart is normal in size. There is no significant pericardial effusion. Bones and soft tissues: There is osteopenia, scoliosis, and multilevel degenerative change seen within the thoracic spine. 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 Vacuum disc phenomena is seen at multiple levels within the thoracic spine. Upper abdomen: Contents are seen within a somewhat distended stomach. Mild, nonspecific thickening of the left adrenal gland. There is left renal cortical scarring, with associated left-sided hydronephrosis. Partially visualized left renal cyst. IMPRESSION: Emphysema, with mild, diffuse bronchiectasis. Subcentimeter pulmonary nodules, measuring up to 4 mm in size. Additionally, there is subpleural thickening with parenchymal scarring seen involving the right lower hemidiaphragm, measuring approximately 5.5 x 2.0 cm. Consider PET-CT examination for further evaluation. Prominent, less than 1 cm mediastinal lymph nodes, likely reactive. ACTIONABLE RESULT: FOLLOW-UP Acuity: Actionable Findings: Thoracic-Other Routing Code: CT_1 Recommendation: NM PET/MR WHOLE BODY ([id number]) Time Frame: At the discretion of the clinical team. COMMUNICATION: Results will be communicated with the ordering provider via [employer] staff message or phone message by Imaging Support Services within 2 business days of report finalization. --END OF FINDING-- Salesperson Neckties: MARC Transcribe Date/Time: Jul 25 2024 7:50A Dictated by : LELA SCHULZ MD This examination was interpreted and the report reviewed and electronically signed by: LELA SCHULZ MD on Jul 25 2024 3:53PM EST [id number] ACTIONABLE Invalid Interpretation Code [facility] CT Chest WO contraston 07-21 Radiology Study observation (narrative) [facility] Gastroenterology Visit Repor ton 07-21-2024 Gastroenterology Visit Report Normal [facility] BASIC METABOLIC PANELon 06-23 Anion gap [Moles/Vol] 4 mmol/L Normal 3-13 [facility] Comment on above: Performed By: #### L AB15 ####Massage Coordinator: ANTOINE COOPER ([phone])[facility] [employer] ([employer])[address] [place] [address] Calcium [Mass/Vol] 9.1 mg/dL Normal 8.4-10.4 [facility] Comment on above: Performed By: #### L AB15 ####Massage Coordinator: ANTOINE COOPER ([id number])[facility] NATHAN [employer] ([employer])[address] [place] [address] Chloride [Moles/Vol] 103 mmol/L Normal 98-107 [facility] Comment on above: Performed By: #### L AB15 ####Massage Coordinator: ANTOINE COOPER ([id number])[facility] NATHAN [employer] (SW[employer])[address] [place] [address] [place] CO2 [Moles/Vol] 30 mmol/L Normal 22-30 [facility] Comment on above: Performed By: #### L AB15 ####Massage Coordinator: ANTOINE COOPER ([id number])[facility] [employer] (SWRL[employer])[address] [place] [address] [place] Creatinine [Mass/Vol] 1.01 mg/dL Normal 0.52-1.04 [facility] Comment on above: Performed By: #### L AB15 ####Massage Coordinator: ANTOINE COOPER ([phone])[facility] [place] [employer] (SWRLAB)[address] GLOMERULAR FILTRATION RATE ML/MIN/1.73 SQ M.PREDICTED 59.6 mL/min/1.73m*2 Low >60.0 [facility] Comment on above: Result Comment: Calc ulation based on the Chronic Kidney Disease Epidemiology Collaboration (CKD-EPI) equation refit without adjustment for race Performed By: #### L AB15 ####Massage Coordinator: ANTOINE COOPER ([phone])[facility] [place] [employer] (SWRLAB)195 [place] [address] [place] Glucose [Mass/Vol] 191 mg/dL High 70-100 [facility] Comment on above: Performed By: #### L [id number] ####Massage Coordinator: ANTOINE COOPER ([phone])[facility] [place] (SWRLAB)195 [place] [address] [place] Potassium [Moles/Vol] 5.2 mmol/L High 3.5-5.1 [facility] Comment on above: Performed By: #### L [id number] ####Massage Coordinator: ANTOINE COOPER ([phone])[facility] [place] (SWRLAB)[address] [place] [address] [place] Sodium [Moles/Vol] 137 mmol/L Normal 135-145 [facility] Comment on above: Performed By: #### L [id number] ####Massage Coordinator: ANTOINE COOPER ([phone])[facility] LAVONTMAN (SWRLAB)[address] Urea nitrogen [Mass/Vol] 31 mg/dL High 7-17 [facility] Comment on above: Performed By: #### L [id number] ####Massage Coordinator: ANTOINE COOPER ([phone])[facility] JOON (SWRLAB)[address] Basic metabolic 1998 panelon 07-20-2024 Anion gap [Moles/Vol] 4 mmol/L 3 - 13 mmol/L [facility] Calcium [Mass/Vol] 9.1 mg/dL 8.4 - 10. 4 mg/dL [facility] Chloride [Moles/Vol] 103 mmol/L 98 - 10 7 mmol/L [facility] CO2 [Moles/Vol] 30 mmol/L 22 - 30 mmol/L [facility] Creatinine [Mass/Vol] 1.01 mg/dL 0.52 - 1.04 mg/dL [facility] GFR/1.73 sq M.predicted (S/P/Bld) [Vol rate/Area] 59.6 mL/min Low - PINF [facility] Comment on above: Calculation based on the Chronic Kidney Disease Epidemiology Collaboration (CKD-EPI) equation refit without adjustment for race Glucose [Mass/Vol] 191 mg/dL High 70 - 100 mg/dL [facility] Interpretation and review of laboratory results Abnormal [facility] Potassium [Moles/Vol] 5.2 mmol/L High 3.5 - 5.1 mmol/L [facility] Sodium [Moles/Vol] 137 mmol/L 135 - 145 mmol/L [facility] Urea nitrogen [Mass/Vol] 31 mg/dL High 7 - 17 mg/dL [facility] CBC W Auto Differential pane l (Bld)on 07-20-2024 Basophils (Bld) [#/Vol] 0 10*3/uL 0.0 - 0.2 10*3/uL [facility] Basophils/100 WBC (Bld) 0.5 % 0.0 - 2.0 % [facility] Eosinophils (Bld) [#/Vol] 0.1 10*3/uL 0.0 - 0.5 10*3/uL [facility] Eosinophils/100 WBC (Bld) 2.3 % 0.0 - 6.0 % [facility] Erythrocyte distribution width (RBC) [Ratio] 14.2 % 11.5 - 15.0 % [facility] Hematocrit (Bld) [Volume fraction] 32.9 % Low 35.0 - 47.0 % [facility] Hemoglobin (Bld) [Mass/Vol] 10.6 g/dL Low 11.7 - 16.0 g/dL [facility] Immature granulocytes (Bld) [#/Vol] 0 10*3/uL NINF - 0.1 10*3/uL [facility] Immature granulocytes/100 WBC (Bld) 0.2 % 0.0 - 2.0 % [facility] Interpretation and review of laboratory results Abnormal [facility] Lymphocytes (Bld) [#/Vol] 2.1 10*3/uL 1.0 - 4.3 10*3/uL [facility] Lymphocytes/100 WBC (Bld) 37 % 15.0 - 45.0 % [facility] MCH (RBC) [Entitic mass] 30.7 pg 26.0 - 34.0 pg [facility] MCHC (RBC) [Mass/Vol] 32.2 % 30.5 - 36.0 % [facility] MCV (RBC) [Entitic vol] 95.4 fL 77.0 - 99.0 fL [facility] Monocytes (Bld) [#/Vol] 0.5 10*3/uL 0.0 - 0.9 10*3/uL [facility] Monocytes/100 WBC (Bld) 8.4 % 5.0 - 13.0 % [facility] Neutrophils (Bld) [#/Vol] 3 10*3/uL 1.8 - 7.5 10*3/uL [facility] Neutrophils/100 WBC (Bld) 51.6 % 38.0 - 82.0 % [facility] Nucleated RBC/100 WBC (Bld) [Ratio] 0 % [facility] Platelet mean volume (Bld) [Entitic vol] 10.7 fL 9.0 - 12.7 fL [facility] Comment on above: MPV is a calculated measurement using platelet volume ratio Platelets (Bld) [#/Vol] 172 10*3/uL 140 - 440 10*3/uL [facility] RBC (Bld) [#/Vol] 3.45 10*6/uL Low 3.80 - 5.20 10*6/uL [facility] WBC (Bld) [#/Vol] 5.7 10*3/uL 3.6 - 10.7 10*3/uL [facility] CBC WITH AUTO DIFFERENTIALon 07-20-2024 Basophils (Bld) [#/Vol] 0.0 10*3/uL Normal 0.0-0.2 [facility] Comment on above: Performed By: #### L [id number] #### Massage Coordinator: ANTOINE COOPER ([phone]) [facility] NATHAN RITTMAN (SWRLAB) [address] [place] [address] [place] Basophils/100 WBC (Bld) 0.5 % Normal 0.0-2.0 [facility] Comment on above: Performed By: #### L [id number] #### Massage Coordinator: ANTOINE COOPER ([phone]) [facility] NATHAN RITTMAN (SWRLAB) [address] [place] [address] [place] Eosinophils (Bld) [#/Vol] 0.1 10*3/uL Normal 0.0-0.5 [facility] Comment on above: Performed By: #### L [id number] #### Massage Coordinator: ANTOINE COOPER ([phone]) [employer] NATHAN RITTMAN (SWRLAB) [address] [place] [address] [place] Eosinophils/100 WBC (Bld) 2.3 % Normal 0.0-6.0 [facility] Comment on above: Performed By: #### L [id number] #### Massage Coordinator: ANTOINE COOPER ([phone]) [facility] NATHAN RITTMAN (SWRLAB) [address] [place] [address] Erythrocyte distribution width (RBC) [Ratio] 14.2 % Normal 11.5-15.0 [facility] Comment on above: Performed By: #### L [id number] #### Massage Coordinator: ANTOINE COOPER ([phone]) [facility] NATHAN RITTMAN (SWRLAB) [address] [place] [address] Hematocrit (Bld) [Volume fraction] 32.9 % Low 35.0-47.0 [facility] Comment on above: Performed By: #### L [id number] #### Massage Coordinator: ANTOINE COOPER ([phone]) [facility] [place] (SWRLAB) [address] [place] [address] Hemoglobin (Bld) [Mass/Vol] 10.6 g/dL Low 11.7-16.0 [facility] Comment on above: Performed By: #### L [id number] #### Massage Coordinator: ANTOINE COOPER ([phone]) [facility] [place] (SWRLAB) [address] [place] [address] IMMATURE GRANS % 0.2 % Normal 0.0-2.0 [facility] Comment on above: Performed By: #### L [id number] #### Massage Coordinator: ANTOINE COOPER ([phone]) [facility] [place] (SWRLAB) [address] [place] [address] IMMATURE GRANS ABSOLUTE 0.0 10*3/uL Normal <0.1 [facility] Comment on above: Performed By: #### L [id number] #### Massage Coordinator: ANTOINE COOPER ([phone]) [facility] [place] (SWRLAB) [address] [place] [address] [place] Lymphocytes (Bld) [#/Vol] 2.1 10*3/uL Normal 1.0-4.3 [facility] Comment on above: Performed By: #### L [id number] #### Massage Coordinator: ANTOINE COOPER ([phone]) [facility] [place] (SWRLAB) [address] [place] [address] [place] Lymphocytes/100 WBC (Bld) 37.0 % Normal 15.0-45.0 [facility] Comment on above: Performed By: #### L [id number] #### Massage Coordinator: ANTOINE COOPER ([phone]) [facility] [place] (SWRLAB) [address] [place] [address] MCH (RBC) [Entitic mass] 30.7 pg Normal 26.0-34.0 [facility] Comment on above: Performed By: #### L [id number] #### Massage Coordinator: ANTOINE COOPER ([phone]) [facility] [place] (SWRLAB) [address] [place] [address] MCHC 32.2 % Normal 30.5-36.0 [facility] Comment on above: Performed By: #### L [id number] #### Massage Coordinator: ANTOINE COOPER ([phone]) [facility] [place] (SWRLAB) [address] [place] [address] MCV (RBC) [Entitic vol] 95.4 fL Normal 77.0-99.0 [facility] Comment on above: Performed By: #### L [id number] #### Massage Coordinator: ANTOINE COOPER ([phone]) [facility] [place] (SWRLAB) [address] [place] [address] Monocytes (Bld) [#/Vol] 0.5 10*3/uL Normal 0.0-0.9 [facility] Comment on above: Performed By: #### L [id number] #### Massage Coordinator: ANTOINE COOPER ([phone]) [facility] [place] (SWRLAB) [address] [place] [address] Monocytes/100 WBC (Bld) 8.4 % Normal 5.0-13.0 [facility] Comment on above: Performed By: #### L [id number] #### Massage Coordinator: ANTOINE COOPER ([phone]) [facility] [place] (SWRLAB) [address] [place] [address] NEUTROPHILS ABSOLUTE 3.0 10*3/uL Normal 1.8-7.5 [facility] Comment on above: Performed By: #### L [id number] #### Massage Coordinator: ANTOINE COOPER ([phone]) [facility] [place] (SWRLAB) [address] [place] [address] [place] Neutrophils/100 WBC (Bld) 51.6 % Normal 38.0-82.0 [facility] Comment on above: Performed By: #### L [id number] #### Massage Coordinator: ANTOINE COOPER ([phone]) [facility] [place] (SWRLAB) [address] [place] [address] NRBC 0.0 /100 WBCs Normal 0.0-2.0 [facility] Comment on above: Performed By: #### L [id number] #### Massage Coordinator: ANTOINE COOPER ([phone]) [facility] [place] (SWRLAB) [address] [place] [address] Platelet mean volume (Bld) [Entitic vol] 10.7 fL Normal 9.0-12.7 [facility] Comment on above: Result Comment: MPV is a calculated measurement using platelet volume ratio Performed By: #### L [id number] #### Massage Coordinator: ANTOINE COOPER ([phone]) [facility] [place] (SWRLAB) [address] [place] [address] [place] Platelets (Bld) [#/Vol] 172 10*3/uL Normal 140-440 [facility] Comment on above: Performed By: #### L [id number] #### Massage Coordinator: ANTOINE COOPER ([phone]) [facility] [place] (SWRLAB) [address] [place] [address] [place] RBC (Bld) [#/Vol] 3.45 10*6/uL Low 3.80-5.20 [facility] Comment on above: Performed By: #### L [id number] #### Massage Coordinator: ANTOINE COOPER ([phone]) [facility] [place] (SWRLAB) [address] [place] [address] [place] WBC (Bld) [#/Vol] 5.7 10*3/uL Normal 3.6-10.7 [facility] Comment on above: Performed By: #### L [id number] #### Massage Coordinator: ANTOINE COOPER ([phone]) [facility] (SWRLAB) [address] [place] [address] 12 Lead EKG performed by BMS on 07-19-2024 12 Lead EKG performed by BMS Normal [facility] Cardiology Visit Reporton Cardiology Visit Report Normal [facility] Activated partial thrombopla stin time (aPTT) in platelet poor plasma by coagulation aOrdered By: Luigi Tinoco on 07-17-2024 aPTT Coag (Bld) [Time] 23.6 s Low 24.1-36.2 [facility] Comment on above: Order Comment: SEND OUT NOT ORDERABLE TEST TO [facility] ANYMORE PER RAHULNOTLAUREN RESENDEZALE Performed By: #### L 300.3900, L100.0100, L503.6550, L300.4310, L503.6030, L503.0105, L100.9950 ####[facility] [address] [place], [address] aPTT Coag (PPP) [Time] 23.6 s Low 24.1-36.2 [facility] CBC W/Diff, Automatedon 06-23 Absolute Lymph 1.34 X10 3/uL Normal 0.83-4.51 [facility] Comment on above: Performed By: #### L 300.3900, L100.0100, L503.6550, L300.4310, L503.6030, L503.0105, L100.9950 ####[facility] [address] [place], [address] Absolute Neut 3.0 X10 3/uL Normal 2.0-7.7 [facility] Comment on above: Performed By: #### L 300.3900, L100.0100, L503.6550, L300.4310, L503.6030, L503.0105, L100.9950 ####[facility] [address] [place], [address] Basophils/100 WBC (Bld) 0.8 % Normal 0-1 [facility] Comment on above: Performed By: #### L 300.3900, L100.0100, L503.6550, L300.4310, L503.6030, L503.0105, L100.9950 ####[facility] [address] [place], [address] Eosinophils/100 WBC (Bld) 2.4 % Normal 0-5 [facility] Comment on above: Performed By: #### L 300.3900, L100.0100, L503.6550, L300.4310, L503.6030, L503.0105, L100.9950 ####[facility] [address] [place], [address] Erythrocyte distribution width (RBC) [Ratio] 14.1 % Normal 11.6-14.6 [facility] Comment on above: Performed By: #### L 300.3900, L100.0100, L503.6550, L300.4310, L503.6030, L503.0105, L100.9950 ####[facility] [address] [place], [address] Hematocrit (Bld) [Volume fraction] 33.4 % Low 37-47 [facility] Comment on above: Performed By: #### L 300.3900, L100.0100, L503.6550, L300.4310, L503.6030, L503.0105, L100.9950 ####[facility] [address] [place], [address] Hemoglobin (Bld) [Mass/Vol] 10.2 g/dL Low 12.0-15.0 [facility] Comment on above: Performed By: #### L 300.3900, L100.0100, L503.6550, L300.4310, L503.6030, L503.0105, L100.9950 ####[facility] [address] [place], [address] IG% 0.200 Normal 0.0-0.9 [facility] Comment on above: Result Comment: IG% - Immature Granulocytes (promyelocytes, myelocytes andmetamyelocytes) > 1% indicates that a LEFT SHIFT is Present. Performed By: #### L 300.3900, L100.0100, L503.6550, L300.4310, L503.6030, L503.0105, L100.9950 ####[facility] [address] [place], [address] Lymphocytes/100 WBC (Bld) 26.9 % Normal 19-41 [facility] Comment on above: Performed By: #### L 300.3900, L100.0100, L503.6550, L300.4310, L503.6030, L503.0105, L100.9950 ####[facility] [address] [place], [address] MCH (RBC) [Entitic mass] 29.7 pg Normal 27.0-32.0 [facility] Comment on above: Performed By: #### L 300.3900, L100.0100, L503.6550, L300.4310, L503.6030, L503.0105, L100.9950 ####[facility] [address] [place], [address] MCHC (RBC) [Mass/Vol] 30.5 g/dL Low 32-36 [facility] Comment on above: Performed By: #### L 300.3900, L100.0100, L503.6550, L300.4310, L503.6030, L503.0105, L100.9950 ####[facility] [address] [place], [address] MCV (RBC) [Entitic vol] 97.1 fL Normal 81-99 [facility] Comment on above: Performed By: #### L 300.3900, L100.0100, L503.6550, L300.4310, L503.6030, L503.0105, L100.9950 ####[facility] [address] [place], [address] Monocytes/100 WBC (Bld) 8.8 % Normal 0-10 [facility] Comment on above: Performed By: #### L 300.3900, L100.0100, L503.6550, L300.4310, L503.6030, L503.0105, L100.9950 ####[facility] [address] [place], [address] Neutrophils/100 WBC (Bld) 60.9 % Normal 47-70 [facility] Comment on above: Performed By: #### L 300.3900, L100.0100, L503.6550, L300.4310, L503.6030, L503.0105, L100.9950 ####[facility] [address] [place], [address] Nucleated RBC (Bld) [#/Vol] 0 10*3/uL Normal 0-5 [facility] Comment on above: Performed By: #### L 300.3900, L100.0100, L503.6550, L300.4310, L503.6030, L503.0105, L100.9950 ####[facility] [address] [place], [address] Platelet mean volume (Bld) [Entitic vol] 10.6 fL Normal 6.2-12.0 [facility] Comment on above: Performed By: #### L 300.3900, L100.0100, L503.6550, L300.4310, L503.6030, L503.0105, L100.9950 ####[facility] [address] [place], [address] Platelets (Bld) [#/Vol] 193 10*3/uL Normal 150-450 [facility] Comment on above: Performed By: #### L 300.3900, L100.0100, L503.6550, L300.4310, L503.6030, L503.0105, L100.9950 ####[facility] [address] [place], [address] RBC (Bld) [#/Vol] 3.44 10*6/uL Low 4.2-5.4 [facility] Comment on above: Performed By: #### L 300.3900, L100.0100, L503.6550, L300.4310, L503.6030, L503.0105, L100.9950 ####[facility] [address] [place], [address] RDW SD 50.0 fl High 35.1-43.9 [facility] Comment on above: Performed By: #### L 300.3900, L100.0100, L503.6550, L300.4310, L503.6030, L503.0105, L100.9950 ####[facility] [address] [place], [address] WBC (Bld) [#/Vol] 5.0 10*3/uL Normal 4.4-11.0 [facility] Comment on above: Performed By: #### L 300.3900, L100.0100, L503.6550, L300.4310, L503.6030, L503.0105, L100.9950 ####[facility] [address] [place], [address] Ferritinon 07-17-2024 Ferritin [Mass/Vol] 58 ng/mL Normal 8-252 [facility] Comment on above: Order Comment: SEND OUT NOT ORDERABLE TEST TO [facility] ANYMORE PER KELSEYNOTIFIED SHANDALE Performed By: #### L 300.3900, L100.0100, L503.6550, L300.4310, L503.6030, L503.0105, L100.9950 ####[facility] [address] [place], [place], [id number] International normalized rat io (INR) calculationOrdered By: Luigi Tinoco on 07-17-2024 INR Coag (Bld) [Relative time] 1.0 {INR} [facility] Iron+Iron Binding Capacityon 07-17-2024 Iron [Mass/Vol] 40 ug/dL Low 50-170 [facility] Comment on above: Order Comment: SEND OUT NOT ORDERABLE TEST TO [facility] PER [facility] Performed By: #### L 300.3900, L100.0100, L503.6550, L300.4310, L503.6030, L503.0105, L100.9950 ####[facility] [address] [place], [address] IRON SATURATION 16.7 Normal 15.0-55.0 [facility] Comment on above: Order Comment: SEND OUT NOT ORDERABLE TEST TO [facility] ANYMORE PER KELSEYNOTIFIED SHANDALE Performed By: #### L 300.3900, L100.0100, L503.6550, L300.4310, L503.6030, L503.0105, L100.9950 ####[facility] [address] [place], [address] TIBC 239 ug/dL Low 250-450 [facility] Comment on above: Order Comment: SEND OUT NOT ORDERABLE TEST TO [facility] ANYMORE PER KELSEYNOTIFIED SHANDALE Performed By: #### L 300.3900, L100.0100, L503.6550, L300.4310, L503.6030, L503.0105, L100.9950 ####[facility] [address] [place], [address] Miscellaneous Lab Procedureo n 07-17-2024 [facility] LAB TEST Normal [facility] Comment on above: Order Comment: Comme nts: [id number] BLUE, 5ML WB-TALL LAV, 1 SERUMhypercoagulable work up [id number] Result Comment: TEST RESULTS LIMITSVenous Thromb. Patients on VKA Homocysteine 5.1 umol/L Homocysteine levels in patients >60 years increase 1-2 umol/L. Reference Range: 5.0 - 15.0 Factor VIII Activity 181 High % FVIII activity can increase in a variety of clinical situations including normal , in samples drawn from patients (particularly children) who are visibly stressed at the time of phlebotomy, as acute phase reactants, or in response to certain drug therapies suchas DDAVP. Persistently elevated FVIII activity is a risk factor for venous thrombosis as well as recurrence of venous thrombosis. Risk is graded and increases with the degreeof elevation. Although elevated FVIII activity has been identified to cluster within families, a genetic basisfor the elevation has not yet been elucidated (Br J Haematol. 2012; 157:653-663). Reference Range: 57 - 163 Antithrombin Activity, Plasma 85 % Direct oral anticoagulants such as rivaroxaban, apixaban and edoxaban will lead to spuriously elevatedantithrombin activity levels possibly masking a deficiency. Reference Range: 7 months and older: 75 - 135 Protein C Antigen 114 % Reference Range: 17 years and older: 60 - 150 Protein S Antigen, Total 77 % Reference Range: 7 months and older: 60 - 150 This test was developed and its performancecharacteristics determined by [employer]. It has not been cleared orapproved by the Food and Drug Administration. Factor VII Antigen 124 % Reference Range: 7 months and older: 60 - 175 Results of this test are for research purposes only per the assay pourer off. The performance characteristicsof this assay have not been established. The result shouldnot be used as a diagnostic procedure without confirmation of the diagnosis by another medically established diagnostic product or procedure. Protein C Ag/FVII Ag Ratio 0.9 ratio Reference Range: 0.5 - 2.2 Results of this test are for research purposes only per the assay pourer off. The performance characteristicsof this assay have not been established. The result shouldnot be used as a diagnostic procedure without confirmation of the diagnosis by another medically established diagnostic product or procedure.Protein S Ag/FVII Ag Ratio 0.6 ratio Reference Range: 0.5 - 2.2 Results of this test are for research purposes only per the assay pourer off. The performance characteristicsof this assay have not been established. The result shouldnot be used as a diagnostic procedure without confirmation of the diagnosis by another medically established diagnostic product or procedure.Act. Prt C Resist w/FV Defic. 2.6 ratio The APCR result may be falsely increased (masking an abnormal, low APCR result) in patients on direct Xa inhibitor (e.g., rivaroxaban, apixaban, edoxaban) or a direct thrombin inhibitor (e.g., dabigatran)anticoagulant therapy due to assay interference by these drugs. Reference Range: 2.2 - 3.5APTT 26.9 sec This test has not been validated for monitoring unfractionated heparin therapy. aPTT-based therapeutic ranges for unfractionated heparin therapy have not been established. Consider ordering Heparin anti-Xa (unfractionated). Reference Range: 18 years and older: 22.9 - 30.2 APTT 1:1 FINE [employer]S CHAIR Testing Not Indicated This test was developed and its performancecharacteristics determined by [employer]. It has not been cleared orapproved by the [place] Food and Drug Administration. APTT 1:1 Saline Testing Not Indicated This test was developed and its performancecharacteristics determined by [facility]. It has not been cleared orapproved by the [place] Food and Drug Administration. LAC Interpretation A lupus anticoagulant is not detected. Allantiphospholipid antibodies evaluated are normal. As antibody titers may fluctuate with time, repeat testing may be indicated. Please contact [facility] if further clarification is needed. DRVVT Screen Seconds 38.1 sec Reference Range: <= 47.0 DRVVT Confirm Seconds Testing Not Indicated DRVVT Ratio Testing Not Indicated Hexagonal Phospholipid Neutral 5 sec This value is NEGATIVE. This is a qualitative assay and is therefore reported as positive for lupus anticoagulant or negative. The quantitative value is provided as an aid in diagnosis. Reference Range: 0 - 11 Anticardiolipin Ab, IgG <10 GPL Reference Range: Negative: <15 Indeterminate: 15 - 20 Low to medium positive: >20 - 80 High positive: >80 Anticardiolipin Ab, IgM <10 MPL Reference Range: Negative: <13 Indeterminate: 13 - 20 Low to medium positive: >20 - 80 High positive: >80 Beta-2 Glycoprotein I, IgG <10 SGU The reference interval reflects a 3SD or 99th percentile interval. Reference Range: Negative: <21 Beta-2 Glycoprotein I, IgM <10 SMU The reference interval reflects a 3SD or 99th percentile interval. Reference Range: Negative: <33 Beta-2 Glycoprotein I, IgA <10 DESTINY The reference interval reflects a 3SD or 99th percentile interval. Reference Range: Negative: <26 Factor II Gene Mutation Result G-G (Normal-Normal) No prothrombin [id number] mutation present. Interpretation: While the patient does not possess this risk factor,other thrombotic risk factors may be detected throughsystematic clinical laboratory analysis. Methodology: Patient DNA was evaluated for the [place] [address] using PCR amplification followed by restriction analysis and gel electrophoresis. Comments: Simultaneous Risks: If a patient possesses two or more congenital or acquired thrombophilic risk factors, therisk of thrombosis may rise to more than the sum of the risk ratios for the individual risk factors. For instance, a combination of the prothrombin [id number] mutation and the factor V Leiden mutation may confer an increase in thrombotic risk in the range of 20-30 fold. Recommendations for Genetic Counseling: The prothrombin gene mutation is an inherited characteristic. If the mutation is present, we recommend that the patient and their family consider genetic counseling to obtain additional information on inheritance and to identifyother family members at risk. Testing Characteristics: Genetic testing provides exceptionally high sensitivity and specificity.Inaccurate results are limited to rare polymorphisms in primerbinding sites and to misidentification of specimens by collectors or laboratory personnel. This assay detects only the prothrombin [id number] mutation and does not detect other genetic abnormalities. This test was developed and its performancecharacteristics determined by [employer]. It has not been cleared orapproved by the Food and Drug Administration. References: Fortino Henderson, denys al. Br J of Haem. 1997;98:907. Ellen AM, et al. Br J of Haem. 1997;98:353. Dony Roca Mol.Diagn. 2001;6(3):201. Greer Garcia, et al. Thromb Haemost. 2001;86:809-16. Grace M, et al. Thromb Haemost. 1999;82:1583. TESTING PERFORMED AT [facility]. ORIGINAL REPORT ON FILE IN LAB CONTAINS ADDITIONAL TEST SITE INFORMATION. Performed By: #### L 801.1541, L300.3900, L3100.5440, L3100.3425, L3410.2400, L2100.0000, L3300.1200, L500.4050 ####[facility] [address] [place], [place], [id number] Oncology Visit Reporton 06-23 Oncology Visit Report Normal [facility] Prothrombin Time w/INRon INR Coag (PPP) [Relative time] 1.0 {INR} Normal [facility] Comment on above: Order Comment: SEND OUT NOT ORDERABLE TEST TO [facility] Performed By: #### L 300.3900, L100.0100, L503.6550, L300.4310, L503.6030, L503.0105, L100.9950 ####[facility] [address] [place], [place], [id number] Prothrombin timeOrdered By: Luigi Tinoco on 07-17-2024 PT Coag (PPP) [Time] 13.3 s Normal 11.7-14.9 [facility] Comment on above: Order Comment: SEND OUT NOT ORDERABLE TEST TO [facility] ANYMORE PER KELSEYNOTIFIED SHANDALE Performed By: #### L 300.3900, L100.0100, L503.6550, L300.4310, L503.6030, L503.0105, L100.9950 ####[facility] [address] [place], [address] Retic Panelon 07-17-2024 IM RET FRACTION 22.20 High 3.00-15.90 [facility] Comment on above: Performed By: #### L 300.3900, L100.0100, L503.6550, L300.4310, L503.6030, L503.0105, L100.9950 ####[facility] [address] [place], [address] RET-HE 32.5 pg Normal 30-35 [facility] Comment on above: Performed By: #### L 300.3900, L100.0100, L503.6550, L300.4310, L503.6030, L503.0105, L100.9950 ####[facility] [address] [place], [address] Retic Count 2.71 High 0.5-1.5 [facility] Comment on above: Performed By: #### L 300.3900, L100.0100, L503.6550, L300.4310, L503.6030, L503.0105, L100.9950 ####[facility] [address] [place], [address] Vitamin B12 measurementOrder ed By: Luigi Tinoco on 07-17-2024 Cobalamin (Vitamin B12) [Mass/Vol] 1211 pg/mL High 211-911 [facility] Comment on above: Order Comment: SEND OUT NOT ORDERABLE TEST TO [facility] ANYMORE PER PATTIE WISE Performed By: #### L 300.3900, L100.0100, L503.6550, L300.4310, L503.6030, L503.0105, L100.9950 ####[facility] [address] [place], [address] Protein C Defic. Profileon 0 07-14-2024 PROTEIN C,FUNC TNP Normal [facility] Comment on above: Performed By: #### L 3100.2300, L4500.2000, L3100.7325, L3100.7275, L3100.8410, L4500.5000, L3410.2000, L3100.3425, L3300.0450 ####[facility] [address] [place], [address] AT III Func / Immunolon 08-2 AT3 AG, IMMUNOL 65 Abnormal 72-124 [facility] Comment on above: Result Comment: This test was developed and its performance characteristicsdetermined by [employer]. It has not been cleared orapproved by the Food and Drug Administration. Performed By: #### L 3100.2300, L4500.2000, L3100.7325, L3100.7275, L3100.8410, L4500.5000, L3410.2000, L3100.3425, L3300.0450 ####[facility] [address] [place], [address] AT3 FUNCTIONAL 89 Normal 75-135 [facility] Comment on above: Result Comment: Dire ct Xa inhibitor anticoagulants such as rivaroxaban,apixaban and edoxaban will lead to spuriously elevatedantithrombin activity levels possibly masking a deficiency. Performed By: #### L 3100.2300, L4500.2000, L3100.7325, L3100.7275, L3100.8410, L4500.5000, L3410.2000, L3100.3425, L3300.0450 ####[facility] [address] [place], [address] Anticardiolipin IgG, IgMon 0 07-13-2024 Anticardio.IgG < 9 Normal 0-14 [facility] Comment on above: Result Comment: Nega tive: <15 Indeterminate: 15 - 20 Low-Med Positive: >20 - 80 High Positive: >80 Performed By: #### L 3100.2300, L4500.2000, L3100.7325, L3100.7275, L3100.8410, L4500.5000, L3410.2000, L3100.3425, L3300.0450 ####[facility] [address] [place], [place], [id number](958) Anticardio.IgM < 9 Normal 0-12 [facility] Comment on above: Result Comment: Nega tive: <13 Indeterminate: 13 - 20 Low-Med Positive: >20 - 80 High Positive: >80 Performed By: #### L 3100.2300, L4500.2000, L3100.7325, L3100.7275, L3100.8410, L4500.5000, L3410.2000, L3100.3425, L3300.0450 ####[facility] [address] [place], [address](259) Beta-2 Glycoprot IgG, A, 07-13-2024 B2 GLYCO I IGA <9 Normal 0-25 [facility] Comment on above: Result Comment: Resu lt Units: GPI IgA unitsThe reference interval reflects a 3SD or 99th percentileinterval, which is thought to represent a potentiallyclinically significant result in accordance with theInternational Consensus Statement on the classificationcriteria for definitive antiphospholipid syndrome (APS). JThromb Haem 2006;4:295-306. Performed By: #### L 3100.2300, L4500.2000, L3100.7325, L3100.7275, L3100.8410, L4500.5000, L3410.2000, L3100.3425, L3300.0450 ####[facility] [address] [place], [address] B2 GLYCO I IGG <9 Normal 0-20 [facility] Comment on above: Result Comment: Resu lt Units: GPI IgG unitsThe reference interval reflects a 3SD or 99th percentileinterval, which is thought to represent a potentiallyclinically significant result in accordance with theInternational Consensus Statement on the classificationcriteria for definitive antiphospholipid syndrome (APS). JThromb Haem 2006;4:295-306. Performed By: #### L 3100.2300, L4500.2000, L3100.7325, L3100.7275, L3100.8410, L4500.5000, L3410.2000, L3100.3425, L3300.0450 ####[facility] [address] [place], [address] B2 GLYCO I IGM <9 Normal 0-32 [facility] Comment on above: Result Comment: Resu lt Units: GPI IgM unitsThe reference interval reflects a 3SD or 99th percentileinterval, which is thought to represent a potentiallyclinically significant result in accordance with theInternational Consensus Statement on the classificationcriteria for definitive antiphospholipid syndrome (APS). JThromb Haem 2006;4:295-306. Performed By: #### L 3100.2300, L4500.2000, L3100.7325, L3100.7275, L3100.8410, L4500.5000, L3410.2000, L3100.3425, L3300.0450 ####[facility] [address] [place], [place], [id number] Carcinoembryonic Antigenon 0 - CEA 2.3 ng/mL Normal 0.0-4.7 [facility] Comment on above: Result Comment: Nons mokers <3.9 Smokers <5.6Roche [employer]ostics Electrochemiluminescence Immunoassay(ECLIA)Values obtained with different assay methods or kitscannot be used interchangeably. Results cannot beinterpreted as absolute evidence of the presence orabsence of malignant disease.Performed at: - [employer] [id number] Director: Bulmaro Nesbitt PhD, Phone: [phone] at: [facility] [id number] Director: Stanton Vargas MD, Phone: [phone] at: [facility] [id number] [place], [place] [id number] Director: Jacki Amador [facility], Phone: [phone] Performed By: #### L 3107.2340, L4500.2000, L3100.8688, L3100.3894, L3100.6749, L4500.5000, L3410.2000, L3100.8157, L3300.0020 ####[facility] [address] [place], [place], [address] Fact V Leiden Mutationon FACTOR V LEIDEN Comment Normal . [facility] Comment on above: Result Comment: Resu lt: c.1601G>A (p.Fal291Kxh) - Not DetectedThis result is not associated with an increased risk for venousthromboembolism. See Additional Clinical Information andComments.Additional Clinical Information:Venous thromboembolism is a multifactorial diseaseinfluenced by genetic, environmental, and circumstantialrisk factors. The c.1601G>A (p. Ltr012Hdb) variant in theF5 gene, commonly referred to as Factor V Leiden, is agenetic risk factor for venous thromboembolism.Heterozygous carriers of this variant have a 6- to 8-foldincreased risk for venous thromboembolism. Individualshomozygous for this variant (ie, with a copy of the varianton each chromosome) have an approximately 80-fold increasedrisk for venous thromboembolism. Individuals who carry kayla c.*97G>A variant in the F2 gene and Factor V Leiden havean approximately 20-fold increased risk for venousthromboembolism. Risks are likely to be even higher in morecomplex genotype combinations involving the F2 c.*97G>Avariant and Factor V Leiden (PMID: 04284314). Additionalrisk factors include but are not limited to: deficiency ofprotein C, protein S, or antithrombin III, age, male sex,personal or family history of deep vein thromboembolism,smoking, surgery, prolonged immobilization, malignantneoplasm, tamoxifen treatment, raloxifene treatment, oralcontraceptive use, hormone replacement therapy, andpregnancy. Management of thrombotic risk and thromboticevents should follow established guidelines and fit theclinical circumstance. This result cannot predict theoccurrence or recurrence of a thrombotic event.Comment:Genetic counseling is recommended to discuss thepotential clinical implications of positive results, aswell as recommendations for testing family members.Genetic Coordinators are available for health careproviders to discuss results at [phone] ([phone]).Test Details:Variant Analyzed: c.1601G>A (p. Yjh018Ebb), referred toas Factor V LeidenMethods/Limitations:DNA analysis of the F5 gene (NM_000130.5) was performedby PCR amplification followed by restriction enzymeanalysis. The diagnostic sensitivity is >99%. Results mustbe combined with clinical information for the most accurateinterpretation. Molecular-based testing is highly accurate,but as in any laboratory test, diagnostic errors may occur.False positive or false negative results may occur forreasons that include genetic variants, blood transfusions,bone marrow transplantation, somatic or tissue-specificmosaicism, mislabeled samples, or erroneous representationof family relationships.This test was developed and its performance characteristicsdetermined by [employer]. It has not been cleared orapproved by the Food and Drug Administration.References:Jalil Mccracken, Della BURNHAM, Everton R, Brian WW, Eric JH; ACMGProfessional Practice and Guidelines Committee. Addendum:[employer] consensus statement onfactor V Leiden mutation testing. Lyndsey Med. 2020Jan 24.doi: 10.1038/h40326-658-53586-v. PMID: 35743127.Ximena CARDENAS. Factor V Leiden Thrombophilia. 1998April 04(Updated 2017Nov 25). In: Eulogio MP, Brittney HH, Chantell RA,et al., editors. Gloria(R) (Internet). [place] ([place]):[facility]; 3522-1025. Availablefrom: https://www.ncbi.nlm.nih.gov/books/VKH8615/Al Mccracken, Della BURNHAM, Wang X, Jeffery B, Desirae EB, Symone P,Timothy CS; ACMG Laboratory Endocrinologist Committee.Venous thromboembolism laboratory testing (factor V Leidenand factor II c.*97G>A), 2018 update: a technical standardof the [employer] and [employer]omics(ACMG). Lyndsey Med. 2018 Oct;20(12):7974-6115. doi:10.1038/i54531-703-8129-p. Epub 2017Aug 26. PMID: 60249729. Performed By: #### L 3100.2300, L4500.2000, L3100.7325, L3100.7275, L3100.8410, L4500.5000, L3410.2000, L3100.3425, L3300.0450 ####[facility] [address] [place], [address] Reviewed By Comment Normal . [facility] Comment on above: Result Comment: Tech nical Component performed at [facility] RTPProfessional Component performed by:Dorothy Stahl, Ph.D., FACMGDirector, Molecular [address] [place] [address] [place] [address] Performed By: #### L 3100.2300, L4500.2000, L3100.7325, L3100.7275, L3100.8410, L4500.5000, L3410.2000, L3100.3425, L3300.0450 ####[facility] [address] [place], [address] Factor II, DNA Analysison FACTOR II, DNA Comment Normal . [facility] Comment on above: Result Comment: Resu lt: c.*97G>A - Not DetectedThis result is not associated with an increased risk for venousthromboembolism. See Additional Clinical Information andComments.Additional Clinical Information:Venous thromboembolism is a multifactorial disease influenced bygenetic, environmental, and circumstantial risk factors. The c.*97G>Avariant in the F2 gene is a genetic risk factor for venousthromboembolism. Heterozygous carriers have a 2- to 4-fold increasedrisk for venous thromboembolism. Homozygotes for the c.*97G>A variantare rare. The annual risk of VTE in homozygotes has been reported soren 1.1%/year. Individuals who carry both a c.*97G>A variant in theF2 gene and a c.1601G>A (p. Lhn938Dnx) variant in the F5 gene(commonly referred to as Factor V Leiden) have an approximately 20-fold increased risk for venous thromboembolism. Risks are likely soren even higher in more complex genotype combinations involving theF2 c.*97G>A variant and Factor V Leiden (PMID: 07841234). Additionalrisk factors include but are not limited to: deficiency of protein C,protein S, or antithrombin III, age, male sex, personal or familyhistory of deep vein thromboembolism, smoking, surgery, prolongedimmobilization, malignant neoplasm, tamoxifen treatment, raloxifenetreatment, oral contraceptive use, hormone replacement therapy, andpregnancy. Management of thrombotic risk and thrombotic events shouldfollow established guidelines and fit the clinical circumstance. Thisresult cannot predict the occurrence or recurrence of a thromboticevent.Comments:Genetic counseling is recommended to discuss the potential clinicalimplications of positive results, as well as recommendations fortesting family members.Genetic Coordinators are available for health care providers to discussresults at [phone] ([phone]).Test Details:Variant analyzed: c.*97G>A, previously referred to as H35122RFqqggtj/Limitations:DNA analysis of the F2 gene (NM_000506.5) was performed by PCRamplification followed by restriction enzyme analysis. The diagnosticsensitivity is >99%. Results must be combined with clinicalinformation for the most accurate interpretation. Molecular-basedtesting is highly accurate, but as in any laboratory test, diagnosticerrors may occur. False positive or false negative results may occurfor reasons that include genetic variants, blood transfusions, bonemarrow transplantation, somatic or tissue-specific mosaicism,mislabeled samples, or erroneous representation of familyrelationships.This test was developed and its performance characteristics determinedby [employer]. It has not been cleared or approved by the Food and DrugAdministration.References:Jalil S, Della AK, Everton R, Brian WW, Eric JH; ACMG ProfessionalPractice and Guidelines Committee. Addendum: [employer] consensus statement on factor V Leiden mutationtesting. Lyndsey Med. 2020Jan 24. doi: 10.1038/[id number]-s.PMID: 45335397.Ximena CARDENAS. Prothrombin Thrombophilia. 2005Jun 15[Updated 2020Dec 26]. In: Eulogio MP, Brittney HH, Chantell RA, et al.,editors. Gloria(Bairon) [Internet]. [place] ([place]): [facility]; 8560-1662. Available from:https://www.ncbi.nlm.nih.gov/books/TTR8368/Al S, Della AK, Wang X, Jeffery B, Desirae EB, Symone P, Timothy CS;[facility] Laboratory Endocrinologist Committee. Venous thromboembolismlaboratory testing (factor V Leiden and factor II c.*97G>A),2018 update: a technical standard of the [employer] and Genomics (ACMG). Lyndsey Med. 2018 Oct;20(12):5591-3687.doi: 10.1038/[id number]-x. Epub 2017Aug 26. PMID: 96086785. Performed By: #### L 3100.2300, L4500.2000, L3100.7325, L3100.7275, L3100.8410, L4500.5000, L3410.2000, L3100.3425, L3300.0450 ####[facility] [address] [place], [address] DARIANA + Protein Elect, Serumon 07-13-2024 Albumin [Mass/Vol] 3.1 g/dL Normal 2.9-4.4 [facility] Comment on above: Performed By: #### L 3100.2300, L4500.2000, L3100.7325, L3100.7275, L3100.8410, L4500.5000, L3410.2000, L3100.3425, L3300.0450 ####[facility] [address] [place], [address] Albumin/Globulin [Mass ratio] 1.1 {ratio} Normal 0.7-1.7 [facility] Comment on above: Performed By: #### L 3100.2300, L4500.2000, L3100.7325, L3100.7275, L3100.8410, L4500.5000, L3410.2000, L3100.3425, L3300.0450 ####[facility] [address] [place], [address] IFRRZ-2-BGYF 0.3 g/dL Normal 0.0-0.4 [facility] Comment on above: Performed By: #### L 3100.2300, L4500.2000, L3100.7325, L3100.7275, L3100.8410, L4500.5000, L3410.2000, L3100.3425, L3300.0450 ####[facility] [address] [place], [address] DIHRW-5-UGSC 1.0 g/dL Normal 0.4-1.0 [facility] Comment on above: Performed By: #### L 3100.2300, L4500.2000, L3100.7325, L3100.7275, L3100.8410, L4500.5000, L3410.2000, L3100.3425, L3300.0450 ####[facility] [address] [place], [address] BETA GLOBULIN 0.7 g/dL Normal 0.7-1.3 [facility] Comment on above: Performed By: #### L 3100.2300, L4500.2000, L3100.7325, L3100.7275, L3100.8410, L4500.5000, L3410.2000, L3100.3425, L3300.0450 ####[facility] [address] [place], [address] GAMMA GLOBULIN 1.0 g/dL Normal 0.4-1.8 [facility] Comment on above: Performed By: #### L 3100.2300, L4500.2000, L3100.7325, L3100.7275, L3100.8410, L4500.5000, L3410.2000, L3100.3425, L3300.0450 ####[facility] [address] [place], [address] Globulin (S) [Mass/Vol] 3.0 g/dL Normal 2.2-3.9 [facility] Comment on above: Performed By: #### L 3100.2300, L4500.2000, L3100.7325, L3100.7275, L3100.8410, L4500.5000, L3410.2000, L3100.3425, L3300.0450 ####[facility] [address] [place], [address] DARIANA RESULT,S Comment Normal . [facility] Comment on above: Result Comment: No m onoclonality detected. Performed By: #### L 3100.2300, L4500.2000, L3100.7325, L3100.7275, L3100.8410, L4500.5000, L3410.2000, L3100.3425, L3300.0450 ####[facility] [address] [place], [address] IMMUNOGLOB A QN 197 mg/dL Normal 64-422 [facility] Comment on above: Performed By: #### L 3100.2300, L4500.2000, L3100.7325, L3100.7275, L3100.8410, L4500.5000, L3410.2000, L3100.3425, L3300.0450 ####[facility] [address] [place], [address] IMMUNOGLOB G QN 1037 mg/dL Normal 586-1602 [facility] Comment on above: Performed By: #### L 3100.2300, L4500.2000, L3100.7325, L3100.7275, L3100.8410, L4500.5000, L3410.2000, L3100.3425, L3300.0450 ####[facility] [address] [place], [address] IMMUNOGLOB M QN 52 mg/dL Normal 26-217 [facility] Comment on above: Performed By: #### L 3100.2300, L4500.2000, L3100.7325, L3100.7275, L3100.8410, L4500.5000, L3410.2000, L3100.3425, L3300.0450 ####[facility] [address] [place], [address] M-Bob Not Observed Normal Not Observed [facility] Comment on above: Performed By: #### L 3100.2300, L4500.2000, L3100.7325, L3100.7275, L3100.8410, L4500.5000, L3410.2000, L3100.3425, L3300.0450 ####[facility] [address] [place], [address] NOTE: Comment Normal . [facility] Comment on above: Result Comment: Prot ein electrophoresis scan will follow via computer,mail, or mid level net developer delivery. Performed By: #### L 3100.2300, L4500.2000, L3100.7325, L3100.7275, L3100.8410, L4500.5000, L3410.2000, L3100.3425, L3300.0450 ####[facility] [address] [place], [address] Protein [Mass/Vol] 6.1 g/dL Normal 6.0-8.5 [facility] Comment on above: Performed By: #### L 3100.2300, L4500.2000, L3100.7325, L3100.7275, L3100.8410, L4500.5000, L3410.2000, L3100.3425, L3300.0450 ####[facility] [address] [place], [address] Protein C, Functionalon 08- PROTEIN C,FUNC 89 Normal 73-180 [facility] Comment on above: Performed By: #### L 3100.2300, L4500.2000, L3100.7325, L3100.7275, L3100.8410, L4500.5000, L3410.2000, L3100.3425, L3300.0450 ####[facility] [address] [place], [address] 36on 07-11-2024 36 Name of caller: Ashtyn Contact phone number: [phone] Relationship to Patient: [facility] Provider: Dr. Lopez Practice: [facility] Chief Complaint/Reason for Call: Ashtyn from [facility] called in regards to a message they received from the office and they are not sure what this was in regards to. Ashtyn is requesting a call back and they can be reached at #[phone]. Please advise. Best time of day caller can be reached: Any Patient advised that office/PCP has 24-48 business hours to return their call: No Normal [facility] XR Abdomen Single viewon 1. Nonobstructive bowel gas pattern, and findings suggestive of constipation. 2. Possible cholelithiasis. Report Dictated on Electronically Signed By: Laurent Kaba MD Electronically Signed Date/Time: 07/11/2024 7:14 PM EDT [facility] [employer] Patient Name: MANSI CARO : 1955 Exam Date/Time: 07/10/2024 16:17 Procedure: XR ABDOMEN 1 VIEW Ordering Provider: LOPEZ HANNAH Reason For Exam: k59.09 ABDOMEN SINGLE VIEW CLINICAL INDICATION: k59.09. TECHNIQUE: KUB view(s) of the abdomen. COMPARISON: None. FINDINGS: Large fecal residual. No significant bowel dilatation. No apparent pneumoperitoneum, although evaluation for this entity is limited due to supine positioning. Faceted calcific densities project over the right upper quadrant. No other abnormal calcifications. Levoscoliotic and and more diffuse degenerative change in the lumbar spine. [facility] Laurent Kaba MD - 07/11/2024 Patient Name: MANSI CARO : 1955 Exam Date/Time: 07/10/2024 16:17 Procedure: XR ABDOMEN 1 VIEW Ordering Provider: LOPEZ HANNAH Reason For Exam: k59.09 ABDOMEN SINGLE VIEW CLINICAL INDICATION: k59.09. TECHNIQUE: KUB view(s) of the abdomen. COMPARISON: None. FINDINGS: Large fecal residual. No significant bowel dilatation. No apparent pneumoperitoneum, although evaluation for this entity is limited due to supine positioning. Faceted calcific densities project over the right upper quadrant. No other abnormal calcifications. Levoscoliotic and and more diffuse degenerative change in the lumbar spine. IMPRESSION: 1. Nonobstructive bowel gas pattern, and findings suggestive of constipation. 2. Possible cholelithiasis. Report Dictated on Electronically Signed By: Laurent Kaba MD Electronically Signed Date/Time: 07/11/2024 7:14 PM EDT [facility] [employer] XR Abdomen Single viewOrdere d By: Laurent Kaba on 07-11-2024 [facility] [employer] Work Phone: XR Abdomen Single viewon Radiology Study observation (narrative) [facility] [employer] ANCAon 07-07-2024 Atypical pANCA <1:20 Normal Neg:<1:20 [facility] Comment on above: Order Comment: [id number] Result Comment: The atypical pANCA pattern has been observed in asignificant percentage of patients with ulcerative colitis,primary sclerosing cholangitis and autoimmune hepatitis.Performed at: [address] [id number] Director: Bulmaro Nesbitt PhD, Phone: [phone] at: [facility] [address] [id number] Director: Stanton Vargas MD, Phone: [phone] Performed By: #### L 801.1541, L300.3900, L3100.5440, L3100.3425, L3410.2400, L2100.0000, L3300.1200, L500.4050 ####[facility] [address] [place], [place], [address] Cytoplasmic Ab <1:20 Normal Neg:<1:20 [facility] Comment on above: Order Comment: [id number] Performed By: #### L 801.1541, L300.3900, L3100.5440, L3100.3425, L3410.2400, L2100.0000, L3300.1200, L500.4050 ####[facility] [address] [place], [place], [id number] Perinuclear Ab. <1:20 Normal Neg:<1:20 [facility] Comment on above: Order Comment: [id number] Result Comment: The presence of positive fluorescence exhibiting P-ANCA orC-ANCA patterns alone is not specific for the diagnosis ofWegener's Granulomatosis (WG) or microscopic polyangiitis.Decisions about treatment should not be based solely onANCA IFA results. The International ANCA Group Consensusrecommends follow up testing of positive sera with both ND-3 and MPO-ANCA enzyme immunoassays. As many as 5% serumsamples are positive only by EIA. Ref. AM J Clin Tqdall1304;111:507-513. Performed By: #### L 801.1541, L300.3900, L3100.5440, L3100.3425, L3410.2400, L2100.0000, L3300.1200, L500.4050 ####[facility] [address] [place], [address] Celiac Disease Profileon ENDOMYSIAL IGA Negative Normal Negative [facility] Comment on above: Order Comment: [id number] Performed By: #### L 801.1541, L300.3900, L3100.5440, L3100.3425, L3410.2400, L2100.0000, L3300.1200, L500.4050 ####[facility] [address] [place], [address] tTG IGA <2 Normal 0-3 [facility] Comment on above: Order Comment: [id number] Result Comment: Nega tive 0 - 3 Weak Positive 4 - 10 Positive >10 Tissue Transglutaminase (tTG) has been identified as the endomysial antigen. Studies have demonstr- ated that endomysial IgA antibodies have over 99% specificity for gluten sensitive enteropathy. Performed By: #### L 801.1541, L300.3900, L3100.5440, L3100.3425, L3410.2400, L2100.0000, L3300.1200, L500.4050 ####[facility] [address] [place], [address] DARIANA + Protein Elect, Serumon 07-07-2024 Albumin [Mass/Vol] 3.2 g/dL Normal 2.9-4.4 [facility] Comment on above: Order Comment: [id number] Performed By: #### L 801.1541, L300.3900, L3100.5440, L3100.3425, L3410.2400, L2100.0000, L3300.1200, L500.4050 ####[facility] [address] [place], [address] Albumin/Globulin [Mass ratio] 1.1 {ratio} Normal 0.7-1.7 [facility] Comment on above: Order Comment: [id number] Performed By: #### L 801.1541, L300.3900, L3100.5440, L3100.3425, L3410.2400, L2100.0000, L3300.1200, L500.4050 ####[facility] [address] [place], [address] VGMSB-5-SFDU 0.4 g/dL Normal 0.0-0.4 [facility] Comment on above: Order Comment: [id number] Performed By: #### L 801.1541, L300.3900, L3100.5440, L3100.3425, L3410.2400, L2100.0000, L3300.1200, L500.4050 ####[facility] [address] [place], [address] XHKBG-6-BVLY 1.0 g/dL Normal 0.4-1.0 [facility] Comment on above: Order Comment: [id number] Performed By: #### L 801.1541, L300.3900, L3100.5440, L3100.3425, L3410.2400, L2100.0000, L3300.1200, L500.4050 ####[facility] [address] [place], [address] BETA GLOBULIN 0.8 g/dL Normal 0.7-1.3 [facility] Comment on above: Order Comment: [id number] Performed By: #### L 801.1541, L300.3900, L3100.5440, L3100.3425, L3410.2400, L2100.0000, L3300.1200, L500.4050 ####[facility] [address] [place], [address] GAMMA GLOBULIN 1.1 g/dL Normal 0.4-1.8 [facility] Comment on above: Order Comment: [id number] 68 Performed By: #### L 801.1541, L300.3900, L3100.5440, L3100.3425, L3410.2400, L2100.0000, L3300.1200, L500.4050 ####[facility] [address] [place], [address] Globulin (S) [Mass/Vol] 3.2 g/dL Normal 2.2-3.9 [facility] Comment on above: Order Comment: [id number] Performed By: #### L 801.1541, L300.3900, L3100.5440, L3100.3425, L3410.2400, L2100.0000, L3300.1200, L500.4050 ####[facility] [address] [place], [address] DARIANA RESULT,S Comment Normal . [facility] Comment on above: Order Comment: [id number] Result Comment: No m onoclonality detected. Performed By: #### L 801.1541, L300.3900, L3100.5440, L3100.3425, L3410.2400, L2100.0000, L3300.1200, L500.4050 ####[facility] [address] [place], [address] IMMUNOGLOB A QN 204 mg/dL Normal 64-422 [facility] Comment on above: Order Comment: [id number] Performed By: #### L 801.1541, L300.3900, L3100.5440, L3100.3425, L3410.2400, L2100.0000, L3300.1200, L500.4050 ####[facility] [address] [place], [address] IMMUNOGLOB G QN 1094 mg/dL Normal 586-1602 [facility] Comment on above: Order Comment: [id number] 68 Performed By: #### L 801.1541, L300.3900, L3100.5440, L3100.3425, L3410.2400, L2100.0000, L3300.1200, L500.4050 ####[facility] [address] [place], [address] IMMUNOGLOB M QN 53 mg/dL Normal 26-217 [facility] Comment on above: Order Comment: [id number] 68 Performed By: #### L 801.1541, L300.3900, L3100.5440, L3100.3425, L3410.2400, L2100.0000, L3300.1200, L500.4050 ####[facility] [address] [place], [address] M-Bob Not Observed Normal Not Observed [facility] Comment on above: Order Comment: [id number] Performed By: #### L 801.1541, L300.3900, L3100.5440, L3100.3425, L3410.2400, L2100.0000, L3300.1200, L500.4050 ####[facility] [address] [place], [address] NOTE: Comment Normal . [facility] Comment on above: Order Comment: [id number] Result Comment: Prot ein electrophoresis scan will follow via computer,mail, or mid level net developer delivery. Performed By: #### L 801.1541, L300.3900, L3100.5440, L3100.3425, L3410.2400, L2100.0000, L3300.1200, L500.4050 ####[facility] [address] [place], [place], [phone] Protein [Mass/Vol] 6.4 g/dL Normal 6.0-8.5 [facility] Comment on above: Order Comment: [id number] Performed By: #### L 801.1541, L300.3900, L3100.5440, L3100.3425, L3410.2400, L2100.0000, L3300.1200, L500.4050 ####[facility] [address] [place], [place], [id number] L2100.0000on 07-07-2024 ACCA 18 units Normal 0-90 [facility] Comment on above: Order Comment: [id number] Result Comment: Nega tive: <80 Equivocal: 80-90 Positive: >90 Performed By: #### L 801.1541, L300.3900, L3100.5440, L3100.3425, L3410.2400, L2100.0000, L3300.1200, L500.4050 ####[facility] [address] [place], [place], [phone] ALCA 7 units Normal 0-60 [facility] Comment on above: Order Comment: [id number] Result Comment: Nega tive:<55 Equivocal: 55-60 Positive: >60 Performed By: #### L 801.1541, L300.3900, L3100.5440, L3100.3425, L3410.2400, L2100.0000, L3300.1200, L500.4050 ####[facility] [address] [place], [place], [id number] AMCA 34 units Normal 0-100 [facility] Comment on above: Order Comment: [id number] Result Comment: Nega tive: <90 Equivocal: 90-100 Positive: >100 This test was developed and its performance characteristics determined by [employer]. It has not been cleared or approved by the Food and Drug Administration. The FDA has determined that such clearance or approval is not necessary. Performed By: #### L 801.1541, L300.3900, L3100.5440, L3100.3425, L3410.2400, L2100.0000, L3300.1200, L500.4050 ####[facility] [address] [place], [address] Atypical pANCA Negative Normal Negative [facility] Comment on above: Order Comment: N50 68 Performed By: #### L 801.1541, L300.3900, L3100.5440, L3100.3425, L3410.2400, L2100.0000, L3300.1200, L500.4050 ####[facility] [address] [place], [address] COMMENT Comment Normal . [facility] Comment on above: Order Comment: N50 [id number] Result Comment: Jennifer riya is not suggestive of Inflammatory Bowel Disease Performed By: #### L 801.1541, L300.3900, L3100.5440, L3100.3425, L3410.2400, L2100.0000, L3300.1200, L500.4050 ####[facility] [address] [place], [address] Edson 28 units Normal 0-50 [facility] Comment on above: Order Comment: [id number] Result Comment: Nega tive: <45 Equivocal: 45-50 Positive: >50 Performed By: #### L 801.1541, L300.3900, L3100.5440, L3100.3425, L3410.2400, L2100.0000, L3300.1200, L500.4050 ####[facility] [address] [place], [address] Lupus Anticoagulant Compon 0 8- aPTT Coag (Bld) [Time] 46.4 s High 0.0-43.5 [facility] Comment on above: Performed By: #### L 504.2610, L4500.0100 ####[facility] [address] [place], [address] aPTT Coag (Bld) [Time] 42.3 s High 0.0-40.5 [facility] Comment on above: Performed By: #### L 504.2610, L4500.0100 ####[facility] [address] [place], [address] DILUTE PT (dPT) 35.7 sec Normal 0.0-47.6 [facility] Comment on above: Performed By: #### L 504.2610, L4500.0100 ####[facility] [address] [place], [address] dPT Conf. Ratio 1.05 Ratio Normal 0.00-1.34 [facility] Comment on above: Performed By: #### L 504.2610, L4500.0100 ####[facility] [address] [place], [address] DRVVT 37.8 sec Normal 0.0-47.0 [facility] Comment on above: Performed By: #### L 504.2610, L4500.0100 ####[facility] [address] [place], [address] HEX PHAS PHOSPH 4 sec Normal 0-11 [facility] Comment on above: Performed By: #### L 504.2610, L4500.0100 ####[facility] [address] [place], [address] Interpretation Comment: Normal . [facility] Comment on above: Result Comment: No l upus anticoagulant was detected. Results suggest the presence of aninhibitor. The presence of heparin, which is a non-specific inhibitor, maycause this pattern of results. Since the PTT-LA was extended and the dRVVTwas within normal limits, a specific inhibitor to factor VIII, IX, XI, orXII cannot be excluded. It should be noted that mixing studies performed onsamples with minimally extended PTT-LA results can be equivocal. Normalplasma can overcome weak inhibitors, also resulting in a correction of themixing study. As antibody titers may fluctuate with time, repeat testingmay be indicated and ideally should be performed in the absence ofanticoagulant therapy.Performed at: [address] [id number] Director: Stanton Vargas MD, Phone: [phone] Performed By: #### L 504.2610, L4500.0100 ####[facility] [address] [place], [address] THROMBIN TIME 17.3 sec Normal 0.0-23.0 [facility] Comment on above: Performed By: #### L 504.2610, L4500.0100 ####[facility] [address] [place], [address] AZALEA Comprehensive Panelon AZALEA TABLE Comment Normal . [facility] Comment on above: Result Comment: Auto antibody Disease Association -------- Condition Frequency ---------Antinuclear Antibody, SLE, mixed connectiveDirect (AZALEA-D) tissue diseases ---------dsDNA SLE 40 - 60% ---------Chromatin Drug induced SLE 90% SLE 48 - 97% ---------SSA (Ro) SLE 25 - 35% Sjogren's Syndrome 40 - 70% Lupus 100% ---------SSB (La) SLE 10% Sjogren's Syndrome 30% ---------Sm (anti-Castillo) SLE 15 - 30% ---------DRAGSAW OPERATOR Mixed Connective Tissue Disease 95%(U1 nRNP, SLE 30 - 50%anti-ribonucleoprotein) Polymyositis and/or Dermatomyositis 20% ---------Scl-70 (antiDNA Scleroderma (diffuse) 20 - 35%topoisomerase) Crest 13% ---------Mary-1 Polymyositis and/or Dermatomyositis 20 - 40% ---------Centromere B Scleroderma - Crest variant 80%Performed at: [address] [id number] Director: Bulmaro Nesbitt PhD, Phone: [phone] Performed By: #### L 801.1541, L300.3900, L3100.5440, L3100.3425, L3410.2400, L2100.0000, L3300.1200, L500.4050 ####[facility] [address] [place], [place], [phone] ANTI-CENT B AB <0.2 Normal 0.0-0.9 [facility] Comment on above: Performed By: #### L 801.1541, L300.3900, L3100.5440, L3100.3425, L3410.2400, L2100.0000, L3300.1200, L500.4050 ####[facility] [address] [place], [place], [phone] ANTI-DNA (DS)AB 27 IU/mL Abnormal 0-9 [facility] Comment on above: Result Comment: Nega tive <5 Equivocal 5 - 9 Positive >9 Performed By: #### L 801.1541, L300.3900, L3100.5440, L3100.3425, L3410.2400, L2100.0000, L3300.1200, L500.4050 ####[facility] [address] [place], [address] ANTI-MARY-1 <0.2 Normal 0.0-0.9 [facility] Comment on above: Performed By: #### L 801.1541, L300.3900, L3100.5440, L3100.3425, L3410.2400, L2100.0000, L3300.1200, L500.4050 ####[facility] [address] [place], [address] ANTI-SS-A < 0.2 Normal 0.0-0.9 [facility] Comment on above: Performed By: #### L 801.1541, L300.3900, L3100.5440, L3100.3425, L3410.2400, L2100.0000, L3300.1200, L500.4050 ####[facility] [address] [place], [address] ANTI-SS-B < 0.2 Normal 0.0-0.9 [facility] Comment on above: Performed By: #### L 801.1541, L300.3900, L3100.5440, L3100.3425, L3410.2400, L2100.0000, L3300.1200, L500.4050 ####[facility] [address] [place], [address] ANTICHROMATIN <0.2 Normal 0.0-0.9 [facility] Comment on above: Performed By: #### L 801.1541, L300.3900, L3100.5440, L3100.3425, L3410.2400, L2100.0000, L3300.1200, L500.4050 ####[facility] [address] [place], [address] ANTISCLERODERM <0.2 Normal 0.0-0.9 [facility] Comment on above: Performed By: #### L 801.1541, L300.3900, L3100.5440, L3100.3425, L3410.2400, L2100.0000, L3300.1200, L500.4050 ####[facility] [address] [place], [address] DRAGSAW OPERATOR Ab 0.2 AI Normal 0.0-0.9 [facility] Comment on above: Performed By: #### L 801.1541, L300.3900, L3100.5440, L3100.3425, L3410.2400, L2100.0000, L3300.1200, L500.4050 ####[facility] [address] [place], [address] CASTILLO Ab <0.2 Normal 0.0-0.9 [facility] Comment on above: Performed By: #### L 801.1541, L300.3900, L3100.5440, L3100.3425, L3410.2400, L2100.0000, L3300.1200, L500.4050 ####[facility] [address] [place], [address] Basic Metabolic Profile (BMP )on 07-05-2024 BUN/CRE 8.8 RATIO Low 10-20 [facility] Comment on above: Performed By: #### L 500.2500, L100.0500 ####[facility] [address] [place], [address] CA,Total 8.8 mg/dL Normal 8.5-10.1 [facility] Comment on above: Performed By: #### L 500.2500, L100.0500 ####[facility] [address] [place], [address] Chloride [Moles/Vol] 112 mmol/L High 98-107 [facility] Comment on above: Performed By: #### L 500.2500, L100.0500 ####[facility] [address] [place], [address] CO2 [Moles/Vol] 26.0 mmol/L Normal 21.0-32.0 [facility] Comment on above: Performed By: #### L 500.2500, L100.0500 ####[facility] [address] [place], [address] Creatinine [Mass/Vol] 0.79 mg/dL Normal 0.55-1.02 [facility] Comment on above: Result Comment: The validity of the calculated GFR GFRAA in patients over70 years has not been determined. Clinical correlation isessential. Performed By: #### L 500.2500, L100.0500 ####[facility] [address] [place], [address] ECRCL 64.05 ml/min Normal [facility] Comment on above: Performed By: #### L 500.2500, L100.0500 ####[facility] [address] [place], [address] EST GFR - AA 92 mL/min Normal >60 [facility] Comment on above: Result Comment: Afri can Nepalese GFR Calc Performed By: #### L 500.2500, L100.0500 ####[facility] [address] [place], [address] GAP 6 Normal 5-15 [facility] Comment on above: Performed By: #### L 500.2500, L100.0500 ####[facility] [address] [place], [address] GFR/1.73 sq M.predicted among non-blacks MDRD (S/P/Bld) [Vol rate/Area] 76 mL/min/{1.73_m2} Normal >60 [facility] Comment on above: Result Comment: Non- GFR Calc Performed By: #### L 500.2500, L100.0500 ####[facility] [address] [place], [address] Glucose [Mass/Vol] 100 mg/dL Normal 74-106 [facility] Comment on above: Result Comment: Fast ing Glucose result from 100 to 125 mg/dLsuggests IMPAIRED HOMEOSTASIS per A.D.A. criteria. Performed By: #### L 500.2500, L100.0500 ####[facility] [address] [place], [address] Potassium [Moles/Vol] 3.8 mmol/L Normal 3.5-5.1 [facility] Comment on above: Performed By: #### L 500.2500, L100.0500 ####[facility] [address] [place], [address] Sodium [Moles/Vol] 144 mmol/L Normal 136-145 [facility] Comment on above: Performed By: #### L 500.2500, L100.0500 ####[facility] [address] [place], [address] Urea nitrogen [Mass/Vol] 7 mg/dL Normal 7-18 [facility] Comment on above: Performed By: #### L 500.2500, L100.0500 ####[facility] [address] [place], [address] Bedside Glucoseon 07-05-2024 FINGERSTICK GLU 155 mg/dL High 74-106 [facility] Comment on above: Result Comment: TORRES GEMENT OF PATIENT CARE PER NURSING PROTOCOL Performed By: #### L 501.080 ####[facility] [address] [place], [address] FINGERSTICK GLU 92 mg/dL Normal 74-106 [facility] Comment on above: Result Comment: TORRES GEMENT OF PATIENT CARE PER NURSING PROTOCOL Performed By: #### L 501.080 ####[facility] [address] [place], [address] CBC-Complete Blood Cnt No Di ffon 07-05-2024 Erythrocyte distribution width (RBC) [Ratio] 13.2 % Normal 11.6-14.6 [facility] Comment on above: Performed By: #### L 500.2500, L100.0500 ####[facility] [address] [place], [address] Hematocrit (Bld) [Volume fraction] 29.1 % Low 37-47 [facility] Comment on above: Performed By: #### L 500.2500, L100.0500 ####[facility] [address] [place], [address] Hemoglobin (Bld) [Mass/Vol] 9.4 g/dL Low 12.0-15.0 [facility] Comment on above: Performed By: #### L 500.2500, L100.0500 ####[facility] [address] [place], [address] MCH (RBC) [Entitic mass] 29.6 pg Normal 27.0-32.0 [facility] Comment on above: Performed By: #### L 500.2500, L100.0500 ####[facility] [address] [place], [address] MCHC (RBC) [Mass/Vol] 32.3 g/dL Normal 32-36 [facility] Comment on above: Performed By: #### L 500.2500, L100.0500 ####[facility] [address] [place], [address] MCV (RBC) [Entitic vol] 91.5 fL Normal 81-99 [facility] Comment on above: Performed By: #### L 500.2500, L100.0500 ####[facility] [address] [place], [address] Platelet mean volume (Bld) [Entitic vol] 10.2 fL Normal 6.2-12.0 [facility] Comment on above: Performed By: #### L 500.2500, L100.0500 ####[facility] [address] [place], [address] Platelets (Bld) [#/Vol] 205 10*3/uL Normal 150-450 [facility] Comment on above: Performed By: #### L 500.2500, L100.0500 ####[facility] [address] [place], [address] RBC (Bld) [#/Vol] 3.18 10*6/uL Low 4.2-5.4 [facility] Comment on above: Performed By: #### L 500.2500, L100.0500 ####[facility] [address] [place], [address] RDW SD 44.7 fl High 35.1-43.9 [facility] Comment on above: Performed By: #### L 500.2500, L100.0500 ####[facility] [address] [place], [address] WBC (Bld) [#/Vol] 4.8 10*3/uL Normal 4.4-11.0 [facility] Comment on above: Performed By: #### L 500.2500, L100.0500 ####[facility] [address] [place], [address] CTA Abd/Pelvis W/WO Contrast on 07-05-2024 CTA Abd/Pelvis W/WO Contrast Normal [facility] Colonoscopy Reporton 024 Colonoscopy Report Normal [facility] Discharge Instructionon 06-22 Discharge Instruction Normal [facility] [id number] 07-05-2024 MR/POSTOPAN2 Normal [facility] Bedside Glucoseon 07-04-2024 FINGERSTICK GLU 147 mg/dL High 74-106 [facility] Comment on above: Result Comment: TORRES GEMENT OF PATIENT CARE PER NURSING PROTOCOL Performed By: #### L 501.080 ####[facility] [id number] [place], [address] FINGERSTICK GLU 66 mg/dL Low 74-106 [facility] Comment on above: Result Comment: TORRES GEMENT OF PATIENT CARE PER NURSING PROTOCOL Performed By: #### L 501.080 ####[facility] [id number] [place], [address] FINGERSTICK GLU 82 mg/dL Normal 74-106 [facility] Comment on above: Result Comment: TORRES GEMENT OF PATIENT CARE PER NURSING PROTOCOL Performed By: #### L 501.080 ####[facility] [address] [place], [address] FINGERSTICK GLU 98 mg/dL Normal 74-106 [facility] Comment on above: Result Comment: TORRES GEMENT OF PATIENT CARE PER NURSING PROTOCOL Performed By: #### L 501.080 ####[facility] [address] [place], [address] FINGERSTICK GLU 83 mg/dL Normal 74-106 [facility] Comment on above: Result Comment: TORRES GEMENT OF PATIENT CARE PER NURSING PROTOCOL Performed By: #### L 501.080 ####[facility] [address] [place], [address] FINGERSTICK GLU 76 mg/dL Normal 74-106 [facility] Comment on above: Result Comment: TORRES GEMENT OF PATIENT CARE PER NURSING PROTOCOL Performed By: #### L 501.080 ####[facility] [address] [place], [address] CBC W/Diff, Automatedon 08- Absolute Lymph 2.01 X10 3/uL Normal 0.83-4.51 [facility] Comment on above: Performed By: #### L 500.4050, L501.2300, L501.5200, L100.0100 ####[facility] [address] [place], [address] Absolute Neut 1.8 X10 3/uL Low 2.0-7.7 [facility] Comment on above: Performed By: #### L 500.4050, L501.2300, L501.5200, L100.0100 ####[facility] [address] [place], [address] Basophils/100 WBC (Bld) 0.7 % Normal 0-1 [facility] Comment on above: Performed By: #### L 500.4050, L501.2300, L501.5200, L100.0100 ####[facility] [address] [place], [address] Eosinophils/100 WBC (Bld) 3.8 % Normal 0-5 [facility] Comment on above: Performed By: #### L 500.4050, L501.2300, L501.5200, L100.0100 ####[facility] [address] [place], [address] Erythrocyte distribution width (RBC) [Ratio] 13.4 % Normal 11.6-14.6 [facility] Comment on above: Performed By: #### L 500.4050, L501.2300, L501.5200, L100.0100 ####[facility] [address] [place], [address] Hematocrit (Bld) [Volume fraction] 29.7 % Low 37-47 [facility] Comment on above: Performed By: #### L 500.4050, L501.2300, L501.5200, L100.0100 ####[facility] [address] [place], [address] Hemoglobin (Bld) [Mass/Vol] 9.5 g/dL Low 12.0-15.0 [facility] Comment on above: Performed By: #### L 500.4050, L501.2300, L501.5200, L100.0100 ####[facility] [address] [place], [address] IG% 0.700 Normal 0.0-0.9 [facility] Comment on above: Result Comment: IG% - Immature Granulocytes (promyelocytes, myelocytes andmetamyelocytes) > 1% indicates that a LEFT SHIFT is Present. Performed By: #### L 500.4050, L501.2300, L501.5200, L100.0100 ####[facility] [address] [place], [address] Lymphocytes/100 WBC (Bld) 45.3 % High 19-41 [facility] Comment on above: Performed By: #### L 500.4050, L501.2300, L501.5200, L100.0100 ####[facility] [address] [place], [address] MCH (RBC) [Entitic mass] 30.0 pg Normal 27.0-32.0 [facility] Comment on above: Performed By: #### L 500.4050, L501.2300, L501.5200, L100.0100 ####[facility] [address] [place], [address] MCHC (RBC) [Mass/Vol] 32.0 g/dL Normal 32-36 [facility] Comment on above: Performed By: #### L 500.4050, L501.2300, L501.5200, L100.0100 ####[facility] [address] [place], [address] MCV (RBC) [Entitic vol] 93.7 fL Normal 81-99 [facility] Comment on above: Performed By: #### L 500.4050, L501.2300, L501.5200, L100.0100 ####[facility] [address] [place], [address] Monocytes/100 WBC (Bld) 8.3 % Normal 0-10 [facility] Comment on above: Performed By: #### L 500.4050, L501.2300, L501.5200, L100.0100 ####[facility] [address] [place], [address] Neutrophils/100 WBC (Bld) 41.2 % Low 47-70 [facility] Comment on above: Performed By: #### L 500.4050, L501.2300, L501.5200, L100.0100 ####[facility] [address] [place], [address] Nucleated RBC (Bld) [#/Vol] 0 10*3/uL Normal 0-5 [facility] Comment on above: Performed By: #### L 500.4050, L501.2300, L501.5200, L100.0100 ####[facility] [address] [place], [address] Platelet mean volume (Bld) [Entitic vol] 9.7 fL Normal 6.2-12.0 [facility] Comment on above: Performed By: #### L 500.4050, L501.2300, L501.5200, L100.0100 ####[facility] [address] [place], [address] Platelets (Bld) [#/Vol] 181 10*3/uL Normal 150-450 [facility] Comment on above: Performed By: #### L 500.4050, L501.2300, L501.5200, L100.0100 ####[facility] [address] [place], [address] RBC (Bld) [#/Vol] 3.17 10*6/uL Low 4.2-5.4 [facility] Comment on above: Performed By: #### L 500.4050, L501.2300, L501.5200, L100.0100 ####[facility] [address] [place], [address] RDW SD 46.1 fl High 35.1-43.9 [facility] Comment on above: Performed By: #### L 500.4050, L501.2300, L501.5200, L100.0100 ####[facility] [address] [place], [address] WBC (Bld) [#/Vol] 4.4 10*3/uL Normal 4.4-11.0 [facility] Comment on above: Performed By: #### L 500.4050, L501.2300, L501.5200, L100.0100 ####[facility] [address] [place], [address] CD3 (initial)on 07-04-2024 CD3 (initial) Normal [facility] Comment on above: Performed By: #### P CD3 ####[facility] [address] [place], [address] Comprehensive Metabolic Prof ilon 07-04-2024 Albumin [Mass/Vol] 2.5 g/dL Low 3.2-5.0 [facility] Comment on above: Performed By: #### L 500.4050, L501.2300, L501.5200, L100.0100 ####[facility] [address] [place], [address] Albumin/Globulin [Mass ratio] 0.7 {ratio} Low 0.9-2.4 [facility] Comment on above: Performed By: #### L 500.4050, L501.2300, L501.5200, L100.0100 ####[facility] [address] [place], [address] ALK P 37 U/L Low 45-117 [facility] Comment on above: Performed By: #### L 500.4050, L501.2300, L501.5200, L100.0100 ####[facility] [address] [place], [address] ALT [Catalytic activity/Vol] 23 U/L Normal 13-56 [facility] Comment on above: Performed By: #### L 500.4050, L501.2300, L501.5200, L100.0100 ####[facility] [address] [place], [address] AST [Catalytic activity/Vol] 26 U/L Normal 15-37 [facility] Comment on above: Performed By: #### L 500.4050, L501.2300, L501.5200, L100.0100 ####[facility] [address] [place], [address] Bilirubin [Mass/Vol] 0.20 mg/dL Normal 0.20-1.00 [facility] Comment on above: Result Comment: For patients on eltrombopag therapy, use of Dimension [place] TBIL is not recommended. Performed By: #### L 500.4050, L501.2300, L501.5200, L100.0100 ####[facility] [address] [place], [address] BUN/CRE 11.0 RATIO Normal 10-20 [facility] Comment on above: Performed By: #### L 500.4050, L501.2300, L501.5200, L100.0100 ####[facility] [address] [place], [address] CA,Total 8.4 mg/dL Low 8.5-10.1 [facility] Comment on above: Performed By: #### L 500.4050, L501.2300, L501.5200, L100.0100 ####[facility] [address] [place], [address] Chloride [Moles/Vol] 112 mmol/L High 98-107 [facility] Comment on above: Performed By: #### L 500.4050, L501.2300, L501.5200, L100.0100 ####[facility] [address] [place], [address] CO2 [Moles/Vol] 25.0 mmol/L Normal 21.0-32.0 [facility] Comment on above: Performed By: #### L 500.4050, L501.2300, L501.5200, L100.0100 ####[facility] [address] [place], [address] Creatinine [Mass/Vol] 0.91 mg/dL Normal 0.55-1.02 [facility] Comment on above: Result Comment: The validity of the calculated GFR GFRAA in patients over70 years has not been determined. Clinical correlation isessential. Performed By: #### L 500.4050, L501.2300, L501.5200, L100.0100 ####[facility] [address] [place], [address] ECRCL 56.13 ml/min Normal [facility] Comment on above: Performed By: #### L 500.4050, L501.2300, L501.5200, L100.0100 ####[facility] [address] [place], [address] EST GFR - AA 78 mL/min Normal >60 [facility] Comment on above: Result Comment: Afri can Nepalese GFR Calc Performed By: #### L 500.4050, L501.2300, L501.5200, L100.0100 ####[facility] [address] [place], [address] GAP 3 Low 5-15 [facility] Comment on above: Performed By: #### L 500.4050, L501.2300, L501.5200, L100.0100 ####[facility] [address] [place], [address] GFR/1.73 sq M.predicted among non-blacks MDRD (S/P/Bld) [Vol rate/Area] 65 mL/min/{1.73_m2} Normal >60 [facility] Comment on above: Result Comment: Non- GFR Calc Performed By: #### L 500.4050, L501.2300, L501.5200, L100.0100 ####[facility] [address] [place], [address] Globulin (S) [Mass/Vol] 3.4 g/dL Normal 2.2-4.2 [facility] Comment on above: Performed By: #### L 500.4050, L501.2300, L501.5200, L100.0100 ####[facility] [address] [place], [address] Glucose [Mass/Vol] 93 mg/dL Normal 74-106 [facility] Comment on above: Performed By: #### L 500.4050, L501.2300, L501.5200, L100.0100 ####[facility] [address] [place], [address] Potassium [Moles/Vol] 3.7 mmol/L Normal 3.5-5.1 [facility] Comment on above: Performed By: #### L 500.4050, L501.2300, L501.5200, L100.0100 ####[facility] [address] [place], [address] Sodium [Moles/Vol] 140 mmol/L Normal 136-145 [facility] Comment on above: Performed By: #### L 500.4050, L501.2300, L501.5200, L100.0100 ####[facility] [address] [place], [address] T PROT 5.9 g/dL Low 6.4-8.2 [facility] Comment on above: Performed By: #### L 500.4050, L501.2300, L501.5200, L100.0100 ####[facility] [address] [place], [address] Urea nitrogen [Mass/Vol] 10 mg/dL Normal 7-18 [facility] Comment on above: Performed By: #### L 500.4050, L501.2300, L501.5200, L100.0100 ####[facility] [address] [place], [address] HH, Hemoglobin AND Hematocri ton 07-04-2024 Hematocrit (Bld) [Volume fraction] 30.3 % Low 37-47 [facility] Comment on above: Performed By: #### L 100.0600 ####[facility] [address] [place], [address] Hemoglobin (Bld) [Mass/Vol] 9.7 g/dL Low 12.0-15.0 [facility] Comment on above: Performed By: #### L 100.0600 ####[facility] [address] [place], [address] HCT Normal 37-47 [facility] Comment on above: Result Comment: OVER LAPPING- CBCD ORDERED FOR MORNING RUN Performed By: #### L 100.0600 ####[facility] [address] [place], [address] HGB Normal 12.0-15.0 [facility] Comment on above: Result Comment: OVER LAPPING- CBCD ORDERED FOR MORNING RUN Performed By: #### L 100.0600 ####[facility] [address] [place], [address] Hematocrit (Bld) [Volume fraction] 30.4 % Low 37-[address] [place] [address] Comment on above: Performed By: #### L 100.0600 ####[facility] [address] [place], [address] Hemoglobin (Bld) [Mass/Vol] 9.6 g/dL Low 12.0-15.0 [facility] Comment on above: Performed By: #### L 100.0600 ####[facility] [address] [place], [address] LDHon 07-04-2024 LDH 232 U/L Normal 84-246 [facility] Comment on above: Performed By: #### L 504.2610, L4500.0100 ####[facility] [address] [place], [address] Lactic Acidon 07-04-2024 Lactate [Moles/Vol] 0.6 mmol/L Normal 0.4-1.9 [facility] Comment on above: Order Comment: Y Performed By: #### L 503.6005 ####[facility] [address] [place], [address] MR/CON.PCM.GIon 07-04-2024 MR/CON.PCM.GI Normal [facility] MR/POSTOP.ANEon 07-04-2024 MR/POSTOP.ANE Normal [facility] Magnesiumon 07-04-2024 Magnesium [Mass/Vol] 1.9 mg/dL Normal 1.6-2.6 [facility] Comment on above: Performed By: #### L 500.4050, L501.2300, L501.5200, L100.0100 ####[facility] [address] [place], [address] Phosphoruson 07-04-2024 Phosphate [Mass/Vol] 3.4 mg/dL Normal 2.5-4.9 [facility] Comment on above: Performed By: #### L 500.4050, L501.2300, L501.5200, L100.0100 ####[facility] [address] [place], [address] Surgery Specimen Level Macrina 07-04-2024 Surgery Specimen Level IV Normal [facility] Comment on above: Performed By: #### P SUIV ####[facility] [address] [place], [address] Acute Abdomen Inc Cheston -2023 Acute Abdomen Inc Chest Normal [facility] CBC W/Diff, Automatedon 06-22 Absolute Lymph 1.44 X10 3/uL Normal 0.83-4.51 [facility] Comment on above: Performed By: #### L 501.6710, L500.4050, L101.9900, L100.0100, L300.4310, L504.2610, L300.3900 ####[facility] [address] [place], [address] Absolute Neut 3.1 X10 3/uL Normal 2.0-7.7 [facility] Comment on above: Performed By: #### L 501.6710, L500.4050, L101.9900, L100.0100, L300.4310, L504.2610, L300.3900 ####[facility] [address] [place], [address] Basophils/100 WBC (Bld) 0.4 % Normal 0-1 [facility] Comment on above: Performed By: #### L 501.6710, L500.4050, L101.9900, L100.0100, L300.4310, L504.2610, L300.3900 ####[facility] [address] [place], [address] Eosinophils/100 WBC (Bld) 1.8 % Normal 0-5 [facility] Comment on above: Performed By: #### L 501.6710, L500.4050, L101.9900, L100.0100, L300.4310, L504.2610, L300.3900 ####[facility] [address] [place], [address] Erythrocyte distribution width (RBC) [Ratio] 13.4 % Normal 11.6-14.6 [facility] Comment on above: Performed By: #### L 501.6710, L500.4050, L101.9900, L100.0100, L300.4310, L504.2610, L300.3900 ####[facility] [address] [place], [address] Hematocrit (Bld) [Volume fraction] 33.4 % Low 37-47 [facility] Comment on above: Performed By: #### L 501.6710, L500.4050, L101.9900, L100.0100, L300.4310, L504.2610, L300.3900 ####[facility] [address] [place], [address] Hemoglobin (Bld) [Mass/Vol] 10.9 g/dL Low 12.0-15.0 [facility] Comment on above: Performed By: #### L 501.6710, L500.4050, L101.9900, L100.0100, L300.4310, L504.2610, L300.3900 ####[facility] [address] [place], [address] IG% 0.600 Normal 0.0-0.9 [facility] Comment on above: Result Comment: IG% - Immature Granulocytes (promyelocytes, myelocytes andmetamyelocytes) > 1% indicates that a LEFT SHIFT is Present. Performed By: #### L 501.6710, L500.4050, L101.9900, L100.0100, L300.4310, L504.2610, L300.3900 ####[facility] [address] [place], [address] Lymphocytes/100 WBC (Bld) 28.6 % Normal 19-41 [facility] Comment on above: Performed By: #### L 501.6710, L500.4050, L101.9900, L100.0100, L300.4310, L504.2610, L300.3900 ####[facility] [address] [place], [address] MCH (RBC) [Entitic mass] 30.1 pg Normal 27.0-32.0 [facility] Comment on above: Performed By: #### L 501.6710, L500.4050, L101.9900, L100.0100, L300.4310, L504.2610, L300.3900 ####[facility] [address] [place], [address] MCHC (RBC) [Mass/Vol] 32.6 g/dL Normal 32-36 [facility] Comment on above: Performed By: #### L 501.6710, L500.4050, L101.9900, L100.0100, L300.4310, L504.2610, L300.3900 ####[facility] [address] [place], [address] MCV (RBC) [Entitic vol] 92.3 fL Normal 81-99 [facility] Comment on above: Performed By: #### L 501.6710, L500.4050, L101.9900, L100.0100, L300.4310, L504.2610, L300.3900 ####[facility] [address] [place], [address] Monocytes/100 WBC (Bld) 6.7 % Normal 0-10 [facility] Comment on above: Performed By: #### L 501.6710, L500.4050, L101.9900, L100.0100, L300.4310, L504.2610, L300.3900 ####[facility] [address] [place], [address] Neutrophils/100 WBC (Bld) 61.9 % Normal 47-70 [facility] Comment on above: Performed By: #### L 501.6710, L500.4050, L101.9900, L100.0100, L300.4310, L504.2610, L300.3900 ####[facility] [address] [place], [address] Nucleated RBC (Bld) [#/Vol] 0 10*3/uL Normal 0-5 [facility] Comment on above: Performed By: #### L 501.6710, L500.4050, L101.9900, L100.0100, L300.4310, L504.2610, L300.3900 ####[facility] [address] [place], [address] Platelet mean volume (Bld) [Entitic vol] 10.8 fL Normal 6.2-12.0 [facility] Comment on above: Performed By: #### L 501.6710, L500.4050, L101.9900, L100.0100, L300.4310, L504.2610, L300.3900 ####[facility] [address] [place], [address] Platelets (Bld) [#/Vol] 191 10*3/uL Normal 150-450 [facility] Comment on above: Performed By: #### L 501.6710, L500.4050, L101.9900, L100.0100, L300.4310, L504.2610, L300.3900 ####[facility] [address] [place], [address] RBC (Bld) [#/Vol] 3.62 10*6/uL Low 4.2-5.4 [facility] Comment on above: Performed By: #### L 501.6710, L500.4050, L101.9900, L100.0100, L300.4310, L504.2610, L300.3900 ####[facility] [address] [place], [address] RDW SD 45.6 fl High 35.1-43.9 [facility] Comment on above: Performed By: #### L 501.6710, L500.4050, L101.9900, L100.0100, L300.4310, L504.2610, L300.3900 ####[facility] [address] [place], [place], [phone]) WBC (Bld) [#/Vol] 5.0 10*3/uL Normal 4.4-11.0 [facility] Comment on above: Performed By: #### L 501.6710, L500.4050, L101.9900, L100.0100, L300.4310, L504.2610, L300.3900 ####[facility] [address] [place], [address](463) CRPon 07-03-2024 C-REACTIVE PROT 90.10 mg/L High 0.0-3.0 [facility] Comment on above: Order Comment: [id number] Result Comment: C-Re active Protein (CRP) provides useful information for thediagnosis, therapy and monitoring of inflammatory processesand associated diseases. For the evaluation of Relative Riskfor Cardiovascular Disease, a High Sensitivity CRP (HSCRP)should be ordered. Performed By: #### L 501.6710, L500.4050, L101.9900, L100.0100, L300.4310, L504.2610, L300.3900 ####[facility] [address] [place], [place], [id number] Comprehensive Metabolic Prof ilon 07-03-2024 Albumin [Mass/Vol] 3.1 g/dL Low 3.2-5.0 [facility] Comment on above: Order Comment: [id number] 81 Performed By: #### L 501.6710, L500.4050, L101.9900, L100.0100, L300.4310, L504.2610, L300.3900 ####[facility] [address] [place], [address] Albumin/Globulin [Mass ratio] 0.7 {ratio} Low 0.9-2.4 [facility] Comment on above: Order Comment: [id number] 81 Performed By: #### L 501.6710, L500.4050, L101.9900, L100.0100, L300.4310, L504.2610, L300.3900 ####[facility] [address] [place], [address] ALK P 50 U/L Normal 45-117 [facility] Comment on above: Order Comment: [id number] 81 Performed By: #### L 501.6710, L500.4050, L101.9900, L100.0100, L300.4310, L504.2610, L300.3900 ####[facility] [address] [place], [address] ALT [Catalytic activity/Vol] 26 U/L Normal 13-56 [facility] Comment on above: Order Comment: [id number] 81 Performed By: #### L 501.6710, L500.4050, L101.9900, L100.0100, L300.4310, L504.2610, L300.3900 ####[facility] [address] [place], [address] AST [Catalytic activity/Vol] 28 U/L Normal 15-37 [facility] Comment on above: Order Comment: [id number] 81 Performed By: #### L 501.6710, L500.4050, L101.9900, L100.0100, L300.4310, L504.2610, L300.3900 ####[facility] [address] [place], [address] Bilirubin [Mass/Vol] 0.40 mg/dL Normal 0.20-1.00 [facility] Comment on above: Order Comment: [id number] 81 Result Comment: For patients on eltrombopag therapy, use of Dimension [place] TBIL is not recommended. Performed By: #### L 501.6710, L500.4050, L101.9900, L100.0100, L300.4310, L504.2610, L300.3900 ####[facility] [address] [place], [address] BUN/CRE 13.2 RATIO Normal 10-20 [facility] Comment on above: Order Comment: [id number] 81 Performed By: #### L 501.6710, L500.4050, L101.9900, L100.0100, L300.4310, L504.2610, L300.3900 ####[facility] [address] [place], [address] CA,Total 9.0 mg/dL Normal 8.5-10.1 [facility] Comment on above: Order Comment: [id number] Performed By: #### L 501.6710, L500.4050, L101.9900, L100.0100, L300.4310, L504.2610, L300.3900 ####[facility] [id number] [place], [address] Chloride [Moles/Vol] 109 mmol/L High 98-107 [facility] Comment on above: Order Comment: [id number] Performed By: #### L 501.6710, L500.4050, L101.9900, L100.0100, L300.4310, L504.2610, L300.3900 ####[facility] [address] [place], [address] CO2 [Moles/Vol] 24.0 mmol/L Normal 21.0-32.0 [facility] Comment on above: Order Comment: [id number] Performed By: #### L 501.6710, L500.4050, L101.9900, L100.0100, L300.4310, L504.2610, L300.3900 ####[facility] [address] [place], [address] Creatinine [Mass/Vol] 1.29 mg/dL High 0.55-1.02 [facility] Comment on above: Order Comment: [id number] Result Comment: The validity of the calculated GFR GFRAA in patients over70 years has not been determined. Clinical correlation isessential. Performed By: #### L 501.6710, L500.4050, L101.9900, L100.0100, L300.4310, L504.2610, L300.3900 ####[facility] [address] [place], [address] EST GFR - AA 52 mL/min Low >60 [facility] Comment on above: Order Comment: [id number] Result Comment: Afri can [place] GFR Calc Performed By: #### L 501.6710, L500.4050, L101.9900, L100.0100, L300.4310, L504.2610, L300.3900 ####[facility] [id number] [place], [address] GAP 7 Normal 5-15 [facility] Comment on above: Order Comment: [id number] Performed By: #### L 501.6710, L500.4050, L101.9900, L100.0100, L300.4310, L504.2610, L300.3900 ####[facility] [address] [place], [address] GFR/1.73 sq M.predicted among non-blacks MDRD (S/P/Bld) [Vol rate/Area] 43 mL/min/{1.73_m2} Low >60 [facility] Comment on above: Order Comment: [id number] Result Comment: Non- GFR Calc Performed By: #### L 501.6710, L500.4050, L101.9900, L100.0100, L300.4310, L504.2610, L300.3900 ####[facility] [address] [place], [address] Globulin (S) [Mass/Vol] 4.3 g/dL High 2.2-4.2 [facility] Comment on above: Order Comment: [id number] 81 Performed By: #### L 501.6710, L500.4050, L101.9900, L100.0100, L300.4310, L504.2610, L300.3900 ####[facility] [address] [place], [address] Glucose [Mass/Vol] 166 mg/dL High 74-106 [facility] Comment on above: Order Comment: [id number] 81 Result Comment: Fast ing Glucose result greater than or equal to 126 mg/dLsuggests DIABETES MELLITUS per A.D.A. criteria. Performed By: #### L 501.6710, L500.4050, L101.9900, L100.0100, L300.4310, L504.2610, L300.3900 ####[facility] [address] [place], [address] Potassium [Moles/Vol] 3.8 mmol/L Normal 3.5-5.1 [facility] Comment on above: Order Comment: [id number] 81 Performed By: #### L 501.6710, L500.4050, L101.9900, L100.0100, L300.4310, L504.2610, L300.3900 ####[facility] [address] [place], [address] Sodium [Moles/Vol] 140 mmol/L Normal 136-145 [facility] Comment on above: Order Comment: [id number] 81 Performed By: #### L 501.6710, L500.4050, L101.9900, L100.0100, L300.4310, L504.2610, L300.3900 ####[facility] [address] [place], [address] T PROT 7.4 g/dL Normal 6.4-8.2 [facility] Comment on above: Order Comment: [id number] 81 Performed By: #### L 501.6710, L500.4050, L101.9900, L100.0100, L300.4310, L504.2610, L300.3900 ####[facility] [address] [place], [address] Urea nitrogen [Mass/Vol] 17 mg/dL Normal 7-18 [facility] Comment on above: Order Comment: [id number] 81 Performed By: #### L 501.6710, L500.4050, L101.9900, L100.0100, L300.4310, L504.2610, L300.3900 ####[facility] [address] [place], [address] ALB Normal 3.2-5.0 [facility] Comment on above: Order Comment: 33370 8 Result Comment: DUPL CIATE Performed By: #### L 801.1541, L300.3900, L3100.5440, L3100.3425, L3410.2400, L2100.0000, L3300.1200, L500.4050 ####[facility] [address] [place], [address] ALK P Normal 45-117 [facility] Comment on above: Order Comment: 00477 8 Result Comment: DUPL CIATE Performed By: #### L 801.1541, L300.3900, L3100.5440, L3100.3425, L3410.2400, L2100.0000, L3300.1200, L500.4050 ####[facility] [address] [place], [address] ALT Normal 13-56 [facility] Comment on above: Order Comment: 79615 8 Result Comment: DUPL CIATE Performed By: #### L 801.1541, L300.3900, L3100.5440, L3100.3425, L3410.2400, L2100.0000, L3300.1200, L500.4050 ####[facility] [address] [place], [address] AST Normal 15-37 [facility] Comment on above: Order Comment: 31659 8 Result Comment: DUPL CIATE Performed By: #### L 801.1541, L300.3900, L3100.5440, L3100.3425, L3410.2400, L2100.0000, L3300.1200, L500.4050 ####[facility] [address] [place], [address] BUN Normal 7-18 [facility] Comment on above: Order Comment: 49608 8 Result Comment: DUPL CIATE Performed By: #### L 801.1541, L300.3900, L3100.5440, L3100.3425, L3410.2400, L2100.0000, L3300.1200, L500.4050 ####[facility] [address] [place], [address] BUN/CRE Normal 10-20 [facility] Comment on above: Order Comment: 77198 8 Result Comment: DUPL CIATE Performed By: #### L 801.1541, L300.3900, L3100.5440, L3100.3425, L3410.2400, L2100.0000, L3300.1200, L500.4050 ####[facility] [address] [place], [address] CA,Total Normal 8.5-10.1 [facility] Comment on above: Order Comment: 80736 8 Result Comment: DUPL CIATE Performed By: #### L 801.1541, L300.3900, L3100.5440, L3100.3425, L3410.2400, L2100.0000, L3300.1200, L500.4050 ####[facility] [address] [place], [address] CL Normal 98-107 [facility] Comment on above: Order Comment: 67077 8 Result Comment: DUPL CIATE Performed By: #### L 801.1541, L300.3900, L3100.5440, L3100.3425, L3410.2400, L2100.0000, L3300.1200, L500.4050 ####[facility] [address] [place], [address] CO2 Normal 21.0-32.0 [facility] Comment on above: Order Comment: 49701 8 Result Comment: DUPL CIATE Performed By: #### L 801.1541, L300.3900, L3100.5440, L3100.3425, L3410.2400, L2100.0000, L3300.1200, L500.4050 ####[facility] [address] [place], [address] CREAT,SERUM Normal 0.55-1.02 [facility] Comment on above: Order Comment: 70040 8 Result Comment: DUPL CIATE Performed By: #### L 801.1541, L300.3900, L3100.5440, L3100.3425, L3410.2400, L2100.0000, L3300.1200, L500.4050 ####[facility] [address] [place], [address] EST GFR Normal >60 [facility] Comment on above: Order Comment: 44275 8 Result Comment: DUPL CIATE Performed By: #### L 801.1541, L300.3900, L3100.5440, L3100.3425, L3410.2400, L2100.0000, L3300.1200, L500.4050 ####[facility] [address] [place], [address] EST GFR - AA Normal >60 [facility] Comment on above: Order Comment: 40877 8 Result Comment: DUPL CIATE Performed By: #### L 801.1541, L300.3900, L3100.5440, L3100.3425, L3410.2400, L2100.0000, L3300.1200, L500.4050 ####[facility] [address] [place], [address] GAP Normal 5-15 [facility] Comment on above: Order Comment: 49453 8 Result Comment: DUPL CIATE Performed By: #### L 801.1541, L300.3900, L3100.5440, L3100.3425, L3410.2400, L2100.0000, L3300.1200, L500.4050 ####[facility] [address] [place], [address] GLU Normal 74-106 [facility] Comment on above: Order Comment: 95380 8 Result Comment: DUPL CIATE Performed By: #### L 801.1541, L300.3900, L3100.5440, L3100.3425, L3410.2400, L2100.0000, L3300.1200, L500.4050 ####[facility] [address] [place], [address] Potassium Normal 3.5-5.1 [facility] Comment on above: Order Comment: 06923 8 Result Comment: DUPL CIATE Performed By: #### L 801.1541, L300.3900, L3100.5440, L3100.3425, L3410.2400, L2100.0000, L3300.1200, L500.4050 ####[facility] [address] [place], [address] T BILI Normal 0.20-1.00 [facility] Comment on above: Order Comment: 86853 8 Result Comment: DUPL CIATE Performed By: #### L 801.1541, L300.3900, L3100.5440, L3100.3425, L3410.2400, L2100.0000, L3300.1200, L500.4050 ####[facility] [address] [place], [address] T PROT Normal 6.4-8.2 [facility] Comment on above: Order Comment: 00609 8 Result Comment: DUPL CIATE Performed By: #### L 801.1541, L300.3900, L3100.5440, L3100.3425, L3410.2400, L2100.0000, L3300.1200, L500.4050 ####[facility] [address] [place], [address] Comprehensive Metabolic Profil Normal 136-145 [facility] Comment on above: Order Comment: 37888 8 Result Comment: DUPL CIATE Performed By: #### L 801.1541, L300.3900, L3100.5440, L3100.3425, L3410.2400, L2100.0000, L3300.1200, L500.4050 ####[facility] [address] [place], [address] Emergency Department Summary on 07-03-2024 Emergency Department Summary Normal [facility] Erythrocyte Sed Rateon 07-03 SED RATE 49 mm/hr High 0-30 [facility] Comment on above: Performed By: #### L 501.6710, L500.4050, L101.9900, L100.0100, L300.4310, L504.2610, L300.3900 ####[facility] [address] [place], [address] H AND P Exam - Hospitaliston 07-03-2024 H&P Exam - Hospitalist Normal [facility] HH, Hemoglobin AND Hematocri ton 07-03-2024 Hematocrit (Bld) [Volume fraction] 30.8 % Low 37-47 [facility] Comment on above: Performed By: #### L 100.0600 ####[facility] [address] [place], [address] Hemoglobin (Bld) [Mass/Vol] 9.8 g/dL Low 12.0-15.0 [facility] Comment on above: Performed By: #### L 100.0600 ####[facility] [address] [place], [address] LDHon 07-03-2024 LDH 199 U/L Normal 84-246 [facility] Comment on above: Order Comment: [id number] 81 Performed By: #### L 501.6710, L500.4050, L101.9900, L100.0100, L300.4310, L504.2610, L300.3900 ####[facility] [address] [place], [address] Partial Thromboplast Timeon 07-03-2024 aPTT Coag (Bld) [Time] 28.2 s Normal 24.1-36.2 [facility] Comment on above: Performed By: #### L 501.6710, L500.4050, L101.9900, L100.0100, L300.4310, L504.2610, L300.3900 ####[facility] [address] [place], [address] Prothrombin Time w/INRon INR Coag (PPP) [Relative time] 1.2 {INR} Normal [facility] Comment on above: Performed By: #### L 501.6710, L500.4050, L101.9900, L100.0100, L300.4310, L504.2610, L300.3900 ####[facility] [address] [place], [address] PT Coag (PPP) [Time] 15.0 s High 11.7-14.9 [facility] Comment on above: Performed By: #### L 501.6710, L500.4050, L101.9900, L100.0100, L300.4310, L504.2610, L300.3900 ####[facility] [address] [place], [address] INR Normal [facility] Comment on above: Result Comment: DUPL ICATE Performed By: #### L 801.1541, L300.3900, L3100.5440, L3100.3425, L3410.2400, L2100.0000, L3300.1200, L500.4050 ####[facility] [address] [place], [address] PROTIME Normal 11.7-14.9 [facility] Comment on above: Result Comment: DUPL ICATE Performed By: #### L 801.1541, L300.3900, L3100.5440, L3100.3425, L3410.2400, L2100.0000, L3300.1200, L500.4050 ####[facility] [address] [place], [address] Stool Occult Blood iFOBon STOB Positive Normal [facility] Comment on above: Performed By: #### M 100.7900 ####[facility] [address] [place], [address] 36on 06-28-2024 36 Name of caller: Beatrice lobo Contact phone number: [phone] Relationship to Patient: Spouse Provider: Practice: Chief Complaint/Reason for Call: Patients Spouse called in to cancel appointment today at 10 am for Lab work. Spouse stated he just got home with the Patient from the Emergency Room. Spouse stated the Patient had some labs done in the [place] [facility] and wanted to inform the doctor. Please advise. Best time of day caller can be reached: N/A Patient advised that office/PCP has 24-48 business hours to return their call: N/A [facility] Abdomen/Pelvis W IV Cont ONL Yon 06-28-2024 Abdomen/Pelvis W IV Cont ONLY Normal [facility] CBC W/Diff, Automatedon 08- Absolute Lymph 1.21 X10 3/uL Normal 0.83-4.51 [facility] Comment on above: Performed By: #### L 500.4050, L100.0100 ####[facility] [address] [place], [address] Absolute Neut 6.5 X10 3/uL Normal 2.0-7.7 [facility] Comment on above: Performed By: #### L 500.4050, L100.0100 ####[facility] [address] [place], [address] Basophils/100 WBC (Bld) 0.1 % Normal 0-1 [facility] Comment on above: Performed By: #### L 500.4050, L100.0100 ####[facility] [address] [place], [address] Eosinophils/100 WBC (Bld) 0.2 % Normal 0-5 [facility] Comment on above: Performed By: #### L 500.4050, L100.0100 ####[facility] [address] [place], [address] Erythrocyte distribution width (RBC) [Ratio] 13.5 % Normal 11.6-14.6 [facility] Comment on above: Performed By: #### L 500.4050, L100.0100 ####[facility] [address] [place], [address] Hematocrit (Bld) [Volume fraction] 36.5 % Low 37-47 [facility] Comment on above: Performed By: #### L 500.4050, L100.0100 ####[facility] [address] [place], [address] Hemoglobin (Bld) [Mass/Vol] 11.9 g/dL Low 12.0-15.0 [facility] Comment on above: Performed By: #### L 500.4050, L100.0100 ####[facility] [address] [place], [address] IG% 0.400 Normal 0.0-0.9 [facility] Comment on above: Result Comment: IG% - Immature Granulocytes (promyelocytes, myelocytes andmetamyelocytes) > 1% indicates that a LEFT SHIFT is Present. Performed By: #### L 500.4050, L100.0100 ####[facility] [address] [place], [address] Lymphocytes/100 WBC (Bld) 14.2 % Low 19-41 [facility] Comment on above: Performed By: #### L 500.4050, L100.0100 ####[facility] [address] [place], [address] MCH (RBC) [Entitic mass] 30.4 pg Normal 27.0-32.0 [facility] Comment on above: Performed By: #### L 500.4050, L100.0100 ####[facility] [address] [place], [address] MCHC (RBC) [Mass/Vol] 32.6 g/dL Normal 32-36 [facility] Comment on above: Performed By: #### L 500.4050, L100.0100 ####[facility] [address] [place], [address] MCV (RBC) [Entitic vol] 93.1 fL Normal 81-99 [facility] Comment on above: Performed By: #### L 500.4050, L100.0100 ####[facility] [address] [place], [address] Monocytes/100 WBC (Bld) 8.5 % Normal 0-10 [facility] Comment on above: Performed By: #### L 500.4050, L100.0100 ####[facility] [address] [place], [address] Neutrophils/100 WBC (Bld) 76.6 % High 47-70 [facility] Comment on above: Performed By: #### L 500.4050, L100.0100 ####[facility] [address] [place], [address] Nucleated RBC (Bld) [#/Vol] 0 10*3/uL Normal 0-5 [facility] Comment on above: Performed By: #### L 500.4050, L100.0100 ####[facility] [address] [place], [address] Platelet mean volume (Bld) [Entitic vol] 11.5 fL Normal 6.2-12.0 [facility] Comment on above: Performed By: #### L 500.4050, L100.0100 ####[facility] [address] [place], [address] Platelets (Bld) [#/Vol] 119 10*3/uL Low 150-450 [facility] Comment on above: Performed By: #### L 500.4050, L100.0100 ####[facility] [address] [place], [address] RBC (Bld) [#/Vol] 3.92 10*6/uL Low 4.2-5.4 [facility] Comment on above: Performed By: #### L 500.4050, L100.0100 ####[facility] [address] [place], [address] RDW SD 46.1 fl High 35.1-43.9 [facility] Comment on above: Performed By: #### L 500.4050, L100.0100 ####[facility] [address] [place], [address] WBC (Bld) [#/Vol] 8.5 10*3/uL Normal 4.4-11.0 [facility] Comment on above: Performed By: #### L 500.4050, L100.0100 ####[facility] [address] [place], [address] Comprehensive Metabolic Prof ilon 08-07-2024 Albumin [Mass/Vol] 3.8 g/dL Normal 3.2-5.0 [facility] Comment on above: Performed By: #### L 500.4050, L100.0100 ####[facility] [address] [place], [address] Albumin/Globulin [Mass ratio] 1.1 {ratio} Normal 0.9-2.4 [facility] Comment on above: Performed By: #### L 500.4050, L100.0100 ####[facility] [address] [place], [address] ALK P 47 U/L Normal 45-117 [facility] Comment on above: Performed By: #### L 500.4050, L100.0100 ####[facility] [address] [place], [address] ALT [Catalytic activity/Vol] 19 U/L Normal 13-56 [facility] Comment on above: Performed By: #### L 500.4050, L100.0100 ####[facility] [address] [place], [address] AST [Catalytic activity/Vol] 29 U/L Normal 15-37 [facility] Comment on above: Performed By: #### L 500.4050, L100.0100 ####[facility] [address] [place], [address] Bilirubin [Mass/Vol] 0.50 mg/dL Normal 0.20-1.00 [facility] Comment on above: Result Comment: For patients on eltrombopag therapy, use of Dimension [place] TBIL is not recommended. Performed By: #### L 500.4050, L100.0100 ####[facility] [address] [place], [address] BUN/CRE 26.1 RATIO High 10-20 [facility] Comment on above: Performed By: #### L 500.4050, L100.0100 ####[facility] [address] [place], [address] CA,Total 9.1 mg/dL Normal 8.5-10.1 [facility] Comment on above: Performed By: #### L 500.4050, L100.0100 ####[facility] [address] [place], [address] Chloride [Moles/Vol] 101 mmol/L Normal 98-107 [facility] Comment on above: Performed By: #### L 500.4050, L100.0100 ####[facility] [address] [place], [address] CO2 [Moles/Vol] 28.0 mmol/L Normal 21.0-32.0 [facility] Comment on above: Performed By: #### L 500.4050, L100.0100 ####[facility] [address] [place], [address] Creatinine [Mass/Vol] 1.34 mg/dL High 0.55-1.02 [facility] Comment on above: Result Comment: The validity of the calculated GFR GFRAA in patients over70 years has not been determined. Clinical correlation isessential. Performed By: #### L 500.4050, L100.0100 ####[facility] [address] [place], [address] ECRCL 36.78 ml/min Normal [facility] Comment on above: Performed By: #### L 500.4050, L100.0100 ####[facility] [address] [place], [address] EST GFR - AA 50 mL/min Low >60 [facility] Comment on above: Result Comment: Afri can Nepalese GFR Calc Performed By: #### L 500.4050, L100.0100 ####[facility] [address] [place], [address] GAP 8 Normal 5-15 [facility] Comment on above: Performed By: #### L 500.4050, L100.0100 ####[facility] [address] [place], [address] GFR/1.73 sq M.predicted among non-blacks MDRD (S/P/Bld) [Vol rate/Area] 41 mL/min/{1.73_m2} Low >60 [facility] Comment on above: Result Comment: Non- GFR Calc Performed By: #### L 500.4050, L100.0100 ####[facility] [address] [place], [address] Globulin (S) [Mass/Vol] 3.6 g/dL Normal 2.2-4.2 [facility] Comment on above: Performed By: #### L 500.4050, L100.0100 ####[facility] [address] [place], [address] Glucose [Mass/Vol] 162 mg/dL High 74-106 [facility] Comment on above: Result Comment: Fast ing Glucose result greater than or equal to 126 mg/dLsuggests DIABETES MELLITUS per A.D.A. criteria. Performed By: #### L 500.4050, L100.0100 ####[facility] [address] [place], [address] Potassium [Moles/Vol] 3.9 mmol/L Normal 3.5-5.1 [facility] Comment on above: Performed By: #### L 500.4050, L100.0100 ####[facility] [address] [place], [address] Sodium [Moles/Vol] 137 mmol/L Normal 136-145 [facility] Comment on above: Performed By: #### L 500.4050, L100.0100 ####[facility] [address] [place], [address] T PROT 7.4 g/dL Normal 6.4-8.2 [facility] Comment on above: Performed By: #### L 500.4050, L100.0100 ####[facility] [address] [place], [address] Urea nitrogen [Mass/Vol] 35 mg/dL High 7-18 [facility] Comment on above: Performed By: #### L 500.4050, L100.0100 ####[facility] [address] [place], [address] Emergency Department Summary on 06-28-2024 Emergency Department Summary Normal [facility] Lactic Acidon 06-28-2024 Lactate [Moles/Vol] 1.4 mmol/L Normal 0.4-1.9 [facility] Comment on above: Order Comment: Y Performed By: #### L 501.2450, L503.6005 ####[facility] [address] [place], [address] Lipaseon 06-28-2024 Lipase [Catalytic activity/Vol] 21 U/L Normal 13-75 [facility] Comment on above: Result Comment: Plea se note:LIPASE revised reference range effective 23.New Lipase methodology. Expected to produce lower valuesthan the previous assay method.NEW Reference Range: 13 - 75 U/L Performed By: #### L 501.2450, L503.6005 ####[facility] [address] [place], [address] Urinalysis, Completeon 06-28 BACTERIA 1+ /hpf Normal None Seen [facility] Comment on above: Order Comment: CLEAN CATCH Performed By: #### L 400.0001 ####[facility] [address] [place], [address] CAST,FINE GRAN 0-5 SEEN Normal 0-5 [facility] Comment on above: Order Comment: CLEAN CATCH Performed By: #### L 400.0001 ####[facility] [address] [place], [address] CAST,HYALINE 5-10 SEEN Normal 0-5 [facility] Comment on above: Order Comment: CLEAN CATCH Performed By: #### L 400.0001 ####[facility] [address] [place], [address] EPI,SQUAMOUS 5-10 SEEN Normal 5-10 [facility] Comment on above: Order Comment: CLEAN CATCH Performed By: #### L 400.0001 ####[facility] [address] [place], [address] RBC 10-25 SEEN Normal 0-5 [facility] Comment on above: Order Comment: CLEAN CATCH Performed By: #### L 400.0001 ####[facility] [address] [facility] [address] WBC 25-50 SEEN Normal 0-5 [facility] Comment on above: Order Comment: CLEAN CATCH Performed By: #### L 400.0001 ####[facility] [address] [place], [address] Mucus Ql (Urine sed) 0 SEEN Normal [facility] Comment on above: Order Comment: CLEAN CATCH Performed By: #### L 400.0001 ####[facility] [address] [place], [place], [address] Gastroenterology Visit Repor ton 05-23-2024 Gastroenterology Visit Report Normal [facility] LABORATORYOrdered By: Cheli Kuo on 05-19-2024 Cholesterol [Mass/Vol] 136 mg/dL Normal 0 - 2 00 mg/dL AO ADM SS Comment on above: Interpretive Data: C holesterol Reference Interval: Less than 200 Desirable 200-239 Borderline high risk 240 and above High risk Cholesterol in HDL [Mass/Vol] 42 mg/dL Normal 40 - 60 mg/dL AO ADM SS Cholesterol in LDL [Mass/Vol] 69 mg/dL Normal 0 - 130 mg/dL AO ADM SS Triglyceride [Mass/Vol] 123 mg/dL Normal 0 - 150 mg/dL AO ADM SS Comment on above: Interpretive Data: T riglyceride Reference Interval: Less than 150 Normal 150-199 Borderline high risk 200-499 High risk 500 or higher Very high risk LABORATORYOrdered By: SYSTEM SYSTEM on 05-19-2024 Natriuretic peptide.B prohormone N-Terminal [Mass/Vol] 578 pg/mL High 0 - 125 pg/mL AO ADM SS Comment on above: Interpretive Data: N T-proBNP results of less than 300 pg/mL effectively rules out acute congestive heart failure with 99% negative predictive value. LIPIDon 05-19-2024 Cholesterol [Mass/Vol] 136 mg/dL Normal 0-200 [facility] ([place]) Comment on above: Result Comment: Chol esterol Reference Interval: Less than 200 Desirable 200-239 Borderline high risk 240 and above High risk Performed By: #### C RE, GFR #### [address] [address] Cholesterol in HDL [Mass/Vol] 42 mg/dL Normal 40-60 [facility] ([place]) Comment on above: Performed By: #### C RE, GFR #### [address] [address] Cholesterol in LDL [Mass/Vol] 69 mg/dL Normal 0-130 [facility] ([place]) Comment on above: Performed By: #### C RE, GFR #### [address] [address] Triglyceride [Mass/Vol] 123 mg/dL Normal 0-150 [facility] ([place]) Comment on above: Result Comment: Trig lyceride Reference Interval: Less than 150 Normal 150-199 Borderline high risk 200-499 High risk 500 or higher Very high risk Performed By: #### C RE, GFR #### [address] [address] PBNPon 05-19-2024 Natriuretic peptide B (Bld) [Mass/Vol] 578 pg/mL High 0-125 [facility] ([place]) Comment on above: Result Comment: NT-p roBNP results of less than 300 pg/mL effectively rules out acute congestive heart failure with 99% negative predictive value. Performed By: #### C RE, GFR #### Katie [address] [address] CNOVon 05-17-2024 CNOV Office Visit ([id number] ) MANSI CARO ([id number]) 1955 F Date Time Provider Department 05/17/24 3:00 PM GHAZALA GUSMAN [id number] During your visit today, we recorded the following information about you: Pulse Blood pressure Weight Height 72/minute 95/58 58.2 kg 1.727 m Ghazala Gusman MD 05/17/2024 5:12 PM Signed Rehabilitation Medicine F/u patient May 12, 2023 Last seen June 04, 2022 The patient was seen for f/u today. Recall, the patient is a 68 yo woman with PMH possible baseline CP, anxiety, depression, HTN, HPL, smoker, stroke left MCA 2009 with left M2 thrombus with 2/2 spasticity right HF/hip add/KF, but more in the distal aspects PF and D4/5 toe flexors, less so hip and KFs. She has element of dynamic spasticity with gait with right foot going into PF and flexor toe curling . 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 HEAD BELLHOP CAPTAIN D placed on 05/12/22. Ongoing issues: Feeling loopy with baclofen with dose increase but helped with hand . Was on 10mg tid, just reduced to 5mg bid and 10mg hs. And going to see how reacts. Seen recently by PCP TFTs are going to be checked d/t fatigue Recent dentist and eye doctor visits. She is doing baclofen 5mg qid and abi. 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 Fall 2 years ago and tooth fx- new implants working on over time. ER visit 09/2023 and dx with TIA x 2 H/o ischemic colitis and diverticulitis in about 03/2024- now on daily miralax Had issues with hypokalemia and dehydration with that hosptilzation at [facility] Recent cataract removal b/l No new N/T weakness. Paternal GM had tremors. Current Outpatient Medications Medication Sig baclofen (LIORESAL) 5 mg tablet 1 tab am, midday and 2 tab hs. Do not abruptly stop if at high dose, risk for withdrawal seizures. clonazePAM (KLONOPIN) 1 mg tablet Take 1 mg by mouth daily at bedtime. furosemide (LASIX) 20 mg tablet as needed. spironolactone (ALDACTONE) 25 mg tablet 12.5 mg every other day. traZODone (DESYREL) 50 mg tablet Take 50 mg by mouth as needed. sacubitril-valsartan (ENTRESTO) 24-26 mg tablet Take 1 tablet by mouth twice daily. BABY ASPIRIN ORAL Take 81 mg by mouth every other day. oxybutynin (DITROPAN) 5 mg/5 mL syrup Take 5 mg by mouth every other day. pantoprazole DR (PROTONIX) 40 mg tablet Take 1 tablet by mouth twice daily. metFORMIN (GLUCOPHAGE) 500 mg tablet Take 1 tablet by mouth twice daily. rosuvastatin (CRESTOR) 5 mg ORAL Tab 1 qd No current facility-administered medications for this visit. ALLERGIES Allergen Reactions Lipitor [Atorvastat* Heart racing; 07/04/10 patient states that she had started a lot of medication at this time and the she did not have a true allergic reaction and is willing to rechallenge [facility] RN PAST MEDICAL HISTORY Diagnosis Date Anxiety state, unspecified Chronic depressive personality disorder Depression Hyperlipidemia PMH - PAST MEDICAL HISTORY OF ? epilepsy Smoking Stroke (HCC) Unspecified essential hypertension Essential hypertension PAST SURGICAL HISTORY Procedure Laterality Date COLONOSCOPY FLX DX W/COLLJ SPEC WHEN PFRMD 02/21/15 Colonoscopy ERCP DX COLLECTION SPECIMEN BRUSHING/WASHING 11/20/14 Cholangiopancreatography (ERCP) with sphincterotomy and stone removal LAPAROSCOPY SURG CHOLECYSTECTOMY 11/21/14 FAMILY HISTORY Problem Relation Age of Onset Coronary Artery Disease Father Social History Tobacco Use Smoking status: Former Packs/day: 1.50 Years: 45.00 Additional pack years: 0.00 Total pack years: 67.50 Types: Cigarettes Quit date: 12/23/2008 Years since quittin.4 Smokeless tobacco: Never Substance Use Topics Alcohol use: No ROS: GENERAL: Denies fever, chills malaise and weight loss. HEENT: No recent change in vision or hearing. CARDIOVASCULAR: Denies chest pain, history of A-fib, valvular disease, or pacemaker/ICD. RESPIRATORY: Denies SOB, sputum production, and hemoptysis. GI: Denies GI ulcers, inflammatory disease, or liver disease. : Denies change in frequency or urgency, kidney disease, and burning with urination. MUSCULOSKELETAL: see hpi SKIN: Denies rash or itching. PSYCHOLOGICAL: see above NEURO: see hpi ENDOCRINE: Denies diabetes, thyroid disease. HEMATOLOGY/LYMPHOLOGY: Denies cancer, bleeding or clotting disorders, anemia,and DVT's. ALLERGIC/IMMUNOLOGICAL: see hpi On exam: BP 95/58 Pulse 72 Ht 172.7 cm (5' 8) Wt 58.2 kg (128 lb 6.4 oz) SpO2 97% BMI 19.52 kg/m? Alert, and oriented. Language eval notes no dysarthria. present Tremor left hand Spasticity well controlled in the UE/LEs, small end ROM catch on the hamstrings (more content not included)... Normal [facility] CT ANGIOGRAPHY ABD AORTA + I LIOFEMORALon 04-24-2024 CT ANGIOGRAPHY ABD AORTA + ILIOFEMORAL ORIGINAL EXAMINATION: CTA OF THE ABDOMEN AND PELVIS WITH CONTRAST 04/07/2024 4:16 pm: TECHNIQUE: CTA of the abdomen and pelvis was performed with the administration of intravenous contrast. Multiplanar reformatted images are provided for review. MIP images are provided for review. Automated exposure control, iterative reconstruction, and/or weight based adjustment of the mA/kV was utilized to reduce the radiation dose to as low as reasonably achievable. COMPARISON: September 07, 2023 HISTORY: ORDERING SYSTEM PROVIDED HISTORY: Reason for Exam: ischemic colits, evaluate for blood flow FINDINGS: Note: Study is submitted to me for interpretation on April 24, 2024, 1:27 p.m.. Minor degenerative changes are noted in the spine. Bone is osteopenic. No acute osseous abnormality identified. Small areas of fibrosis are evident at the lung bases. Liver, spleen, adrenal glands and pancreas are unremarkable. Prominent parapelvic left renal cysts are present. No other kidney abnormality allowing for cortical phase nephrograms. No adenopathy, free air or free fluid is evident. The urinary bladder is unremarkable. Moderate diverticulosis is present at the sigmoid colon with scattered diverticula elsewhere as well. No evidence for diverticulitis. No colonic wall thickening or pericolic infiltrative changes are identified. No other GI tract abnormality is visible. The abdominal aorta is atherosclerotic. There is some atherosclerosis at renal artery origins as well as the origin of the celiac and superior mesenteric arteries. The POLLO is patent. The abdominal aorta measures 2.7 cm in diameter. There is some atherosclerosis of the iliac vessels bilaterally with minor narrowing at the right external iliac artery. No other vascular abnormality seen. No additional contributory finding. IMPRESSION: 1. Diverticulosis without diverticulitis. 2. No acute abnormality identified. Typical findings of ischemic colitis are not evident on this exam. RECOMMENDATIONS: Abdominal aortic aneurysm suspected measuring 2.7 cm. Recommend follow-up every 5 years. Reference: J Am Chani Radiol 2013;10:789-794. Interpreted by: Adrienne Chanel MD Preliminary Report By: Adrienne Chanel MD Electronically signed By Adrienne Chanel MD Dictated Date: 04/24/2024 1:23:17 PM Prelim Date: 04/24/2024 1:31:15 PM Sign Date: 04/24/2024 1:31:15 PM Ordering Provider: ADRIENNE BYERS [facility] ([place]) .GFRon 04-07-2024 GFR 51 ml/min/1.73sqm Normal [facility] ([place]) Comment on above: Result Comment: GFR Population mean for , Non- Americans Ages 20-29 = 116 mL/min/1.73 sq.m. Ages 30-39 = 107 mL/min/1.73 sq.m. Ages 40-49 = 99 mL/min/1.73 sq.m. Ages 50-59 = 93 mL/min/1.73 sq.m. Ages 60-69 = 85 mL/min/1.73 sq.m. Ages 70+ = 75 mL/min/1.73 sq.m. Chronic Kidney Disease: Less than 60 mL/min/1.73 square meters End Stage Renal Disease: Less than 15 mL/min/1.73 square meters Performed By: #### C RE, GFR #### [id number] [place], [place] [address] GFR Non- 42 ml/min/1.73sqm Normal [facility] ([place]) Comment on above: Result Comment: GFR Population mean for , Non- Americans Ages 20-29 = 116 mL/min/1.73 sq.m. Ages 30-39 = 107 mL/min/1.73 sq.m. Ages 40-49 = 99 mL/min/1.73 sq.m. Ages 50-59 = 93 mL/min/1.73 sq.m. Ages 60-69 = 85 mL/min/1.73 sq.m. Ages 70+ = 75 mL/min/1.73 sq.m. Chronic Kidney Disease: Less than 60 mL/min/1.73 square meters End Stage Renal Disease: Less than 15 mL/min/1.73 square meters Performed By: #### C RE, GFR #### [address] [address] CREon 04-07-2024 Creatinine [Mass/Vol] 1.25 mg/dL High 0.55-1.02 [facility] ([place]) Comment on above: Performed By: #### C RE, GFR #### [address] [address] Absolute lymphocyte countOrd ered By: Alonso Marte on 03-15-2024 Lymphocytes Auto (Unsp spec) [#/Vol] 3.07 10*3/uL 0.83-4.51 [facility] Automated lymphocyte count a s percentage of total leukocytesOrdered By: Alonso Marte on 03-15-2024 Lymphocytes/100 WBC Auto (Unsp spec) 51.0 % 19-41 [facility] Basophil percentageOrdered B y: Alonso Marte on 03-15-2024 Basophils/100 WBC (Bld) 0.7 % 0-1 [facility] Chloride [Moles/Vol] 107 mmol/L 98-107 [facility] Eosinophils/100 WBC (Bld) 1.0 % 0-5 [facility] Glucose [Mass/Vol] 122 mg/dL 74-106 [facility] Comment on above: Fasting Glucose resu lt from 100 to 125 mg/dL suggests IMPAIRED HOMEOSTASIS per A.D.A. criteria. Hemoglobin (Bld) [Mass/Vol] 11.3 g/dL 12.0-15.0 [facility] Monocytes/100 WBC (Bld) 8.8 % 0-10 [facility] Neutrophils (Bld) [#/Vol] 2.3 10*3/uL 2.0-7.7 [facility] Neutrophils/100 WBC (Bld) 38.2 % 47-70 [facility] Potassium [Moles/Vol] 4.5 mmol/L 3.5-5.1 [facility] Sodium [Moles/Vol] 139 mmol/L 136-145 [facility] WBC (Bld) [#/Vol] 6.0 10*3/uL 4.4-11.0 [facility] Determination of erythrocyte mean corpuscular volume (MCV)Ordered By: Alonso Marte on 03-15-2024 MCV (RBC) [Entitic vol] 96.5 fL 81-99 [facility] Erythrocyte distribution wid th ratioOrdered By: [facility] 03-[facility]-20[facility] Erythrocyte distribution width (RBC) [Ratio] 14.6 % 11.6-14.6 [facility] Erythrocyte distribution wid th standard deviationOrdered By: Alonso Estuardo 03-15-2024 Erythrocyte distribution width (RBC) [Entitic vol] 52.5 fL 35.1-43.9 [facility] Hematocrit Auto (Bld) [Volum e fraction]Ordered By: [facility] 03-15-2024 Hematocrit (Bld) [Volume fraction] 35.9 % 37-47 [facility] Immature granulocytes/100 WB C Auto (Bld)Ordered By: Alonso Marte 03-15-2024 Immature granulocytes/100 WBC (Bld) 0.300 % 0.0-0.9 [facility] Comment on above: IG% - Immature Granu locytes (promyelocytes, myelocytes and metamyelocytes) > 1% indicates that a LEFT SHIFT is Present. Laboratory - Chemistry and C hemistry - challengeOrdered By: Alonso Marte 03-15-2024 CO2 [Moles/Vol] 28.0 mmol/L 21.0-32.0 [facility] Urea nitrogen/Creatinine [Mass ratio] 23.8 mg/mg 10-20 [facility] Laboratory - Hematology and Cell countsOrdered By: Alonso Marte on 03-15-2024 MCH (RBC) [Entitic mass] 30.4 pg 27.0-32.0 [facility] MCHC (RBC) [Mass/Vol] 31.5 g/dL 32-36 [facility] Nucleated RBC/100 WBC (Bld) [Ratio] 0 % 0-5 [facility] Platelet mean volume (Bld) [Entitic vol] 11.2 fL 6.2-12.0 [facility] Platelets (Bld) [#/Vol] 206 10*3/uL 150-450 [facility] No Panel InformationOrdered By: Alonso Marte on 03-15-2024 Estimated Creatinine Clearance Calc 45.89 ml/min [facility] Estimated GFR (MDRD) Amer 66 mL/min >60 [facility] Comment on above: GFR Calc Estimated GFR (MDRD) Non-Af Amer 55 mL/min >60 [facility] Comment on above: Non- GFR Calc RBC Auto (Bld) [#/Vol]Ordere d By: Alonso Marte on 03-15-2024 RBC (Bld) [#/Vol] 3.72 10*6/uL 4.2-5.4 [facility] Serum or plasma calcium loco urement (mass/volume)Ordered By: Alonso Marte on 03-15-2024 Calcium [Mass/Vol] 9.3 mg/dL 8.5-10.1 [facility] Serum or plasma creatinine m easurement (mass/volume)Ordered By: Alonso Marte on 03-15-2024 Creatinine [Mass/Vol] 1.05 mg/dL 0.55-1.02 [facility] Comment on above: The validity of the calculated GFR & GFRAA in patients over 70 years has not been determined. Clinical correlation is essential. Serum or plasma urea nitroge n measurement (mass/volume)Ordered By: Alonso Marte on 03-15-2024 Urea nitrogen [Mass/Vol] 25 mg/dL 7-18 [facility] Thin prep Papanicolaou smear with manual screeningOrdered By: Alonso Marte on 03-15-2024 Thin prep Papanicolaou smear with manual screening 116 mg/dL 74-106 [facility] Comment on above: MANAGEMENT OF PATIEN T CARE PER NURSING PROTOCOL Thin prep Papanicolaou smear with manual screening 4 5-15 [facility] No Panel InformationOrdered By: Alonso Marte on 03-02-2024 Vitamin D 25-Hydroxy 54.2 ng/mL [facility] Comment on above: Vitamin D 25(OH) Sta tus Range Deficiency <20 ng/mL (50nmol/L) Insufficiency 20 - 30 ng/mL (50 - 75 nmol/L) Sufficiency 30 - 100 ng/mL (75 - 250 nmol/L) Toxicity >100 ng/mL (>250 nmol/L) Absolute lymphocyte countOrd ered By: Heike Horta on 02-29-2024 Lymphocytes Auto (Unsp spec) [#/Vol] 1.82 10*3/uL 0.83-4.51 [facility] Automated lymphocyte count a s percentage of total leukocytesOrdered By: Heike Horta on 02-29-2024 Lymphocytes/100 WBC Auto (Unsp spec) 43.5 % 19-41 [facility] Basophil percentageOrdered B y: Heike Horta on 02-29-2024 Basophils/100 WBC (Bld) 0.5 % 0-1 [facility] Chloride [Moles/Vol] 115 mmol/L 98-107 [facility] Eosinophils/100 WBC (Bld) 3.3 % 0-5 [facility] Glucose [Mass/Vol] 119 mg/dL 74-106 [facility] Comment on above: Fasting Glucose resu lt from 100 to 125 mg/dL suggests IMPAIRED HOMEOSTASIS per A.D.A. criteria. Hemoglobin (Bld) [Mass/Vol] 8.8 g/dL 12.0-15.0 [facility] Monocytes/100 WBC (Bld) 10.0 % 0-10 [facility] Neutrophils (Bld) [#/Vol] 1.8 10*3/uL 2.0-7.7 [facility] Neutrophils/100 WBC (Bld) 42.5 % 47-70 [facility] Potassium [Moles/Vol] 3.3 mmol/L 3.5-5.1 [facility] Sodium [Moles/Vol] 144 mmol/L 136-145 [facility] WBC (Bld) [#/Vol] 4.2 10*3/uL 4.4-11.0 [facility] Blood manual differential co mment interpretation (narrative result)Ordered By: Heike Horta on 02-29-2024 Manual differential comment Jake (Bld) [Interp] SCANNED [facility] Determination of erythrocyte mean corpuscular volume (MCV)Ordered By: Heike Horta on 02-29-2024 MCV (RBC) [Entitic vol] 92.3 fL 81-99 [facility] Erythrocyte distribution wid th ratioOrdered By: Heike Horta on 02-29-2024 Erythrocyte distribution width (RBC) [Ratio] 14.3 % 11.6-14.6 [facility] Erythrocyte distribution wid th standard deviationOrdered By: Heike Horta on 02-29-2024 Erythrocyte distribution width (RBC) [Entitic vol] 48.5 fL 35.1-43.9 [facility] Hematocrit Auto (Bld) [Volum e fraction]Ordered By: Heike Horta on 02-29-2024 Hematocrit (Bld) [Volume fraction] 27.4 % 37-47 [facility] Immature granulocytes/100 WB C Auto (Bld)Ordered By: Heike Horta on 02-29-2024 Immature granulocytes/100 WBC (Bld) 0.200 % 0.0-0.9 [facility] Comment on above: IG% - Immature Granu locytes (promyelocytes, myelocytes and metamyelocytes) > 1% indicates that a LEFT SHIFT is Present. Laboratory - Chemistry and C hemistry - challengeOrdered By: Heike Horta on 02-29-2024 CO2 [Moles/Vol] 23.0 mmol/L 21.0-32.0 [facility] Urea nitrogen/Creatinine [Mass ratio] 5.5 mg/mg 10-20 [facility] Laboratory - Chemistry and C hemistry - challengeOrdered By: Ganesh Kiran on 02-29-2024 Magnesium [Mass/Vol] 1.6 mg/dL 1.6-2.6 [facility] Laboratory - Hematology and Cell countsOrdered By: Heike Horta on 02-29-2024 MCH (RBC) [Entitic mass] 29.6 pg 27.0-32.0 [facility] MCHC (RBC) [Mass/Vol] 32.1 g/dL 32-36 [facility] Nucleated RBC/100 WBC (Bld) [Ratio] 0 % 0-5 [facility] Platelet mean volume (Bld) [Entitic vol] 10.6 fL 6.2-12.0 [facility] Platelets (Bld) [#/Vol] 199 10*3/uL 150-450 [facility] No Panel InformationOrdered By: Heike Horta on 02-29-2024 Estimated Creatinine Clearance Calc 59.58 ml/min [facility] Estimated GFR (MDRD) Amer 102 mL/min >60 [facility] Comment on above: GFR Calc Estimated GFR (MDRD) Non-Af Amer 85 mL/min >60 [facility] Comment on above: Non- GFR Calc RBC Auto (Bld) [#/Vol]Ordere d By: Heike Horta on 02-29-2024 RBC (Bld) [#/Vol] 2.97 10*6/uL 4.2-5.4 [facility] Serum or plasma calcium loco urement (mass/volume)Ordered By: Heike Horta on 02-29-2024 Calcium [Mass/Vol] 7.6 mg/dL 8.5-10.1 [facility] Serum or plasma creatinine m easurement (mass/volume)Ordered By: Heike Horta on 02-29-2024 Creatinine [Mass/Vol] 0.72 mg/dL 0.55-1.02 [facility] Comment on above: The validity of the calculated GFR & GFRAA in patients over 70 years has not been determined. Clinical correlation is essential. Serum or plasma urea nitroge n measurement (mass/volume)Ordered By: Heike Horta on 02-29-2024 Urea nitrogen [Mass/Vol] 4 mg/dL 7-18 [facility] Thin prep Papanicolaou smear with manual screeningOrdered By: Heike Horta on 02-29-2024 Thin prep Papanicolaou smear with manual screening 6 5-15 [facility] Basophil percentageOrdered B y: Ganesh Kiran on 02-28-2024 Basophil percentage 2.0 mg/dL 2.5-4.9 [facility] Serum or plasma trough vanco mycin levelOrdered By: Heike Horta on 02-27-2024 Vancomycin trough [Mass/Vol] 13.3 ug/mL 5.0-15.0 [facility] Comment on above: VANCOMYCIN STANDARED DRUG THERAPY TROUGH LEVEL: 5.0 - 15.0 mg/L VANCOMYCIN HIGH INTENSITY THERAPY TROUGH LEVEL: 15.0 - 20.0 mg/L High Intensity therapy recommended for serious lifethreatening infections include:- Tsrddturuf-Ifqucervkfgk-Ldoezgaim (Ventilator/Healtcare Associated)-Sepsis PLEASE CONTACT PHARMACY SERVICES (#[id number]) FOR INTERPRETATIONOF RESULTS. Culture, urineOrdered By: Au kristie White on 02-26-2024 Bacteria identified Cx Nom (U) Culture exhibits no growth. [facility] Basophil percentageOrdered B y: Heike Horta on 02-25-2024 Basophil percentage 0 SEEN /hpf 0-5 [facility] Bilirubin Test strip Ql (U)O rdered By: Heike Horta on 02-25-2024 Bilirubin Ql (U) Negative Negative [facility] Ketones Test strip Ql (U)Ord ered By: Heike Horta on 02-25-2024 Ketones Ql (U) 5 mg/dl Negative [facility] Laboratory - Microbiology an d Antimicrobial susceptibilityOrdered By: Heike Horta on 02-25-2024 Bacteria identified Cx Nom (Bld) No growth in 5 days. [facility] Mucus LM Ql (Urine sed)Order ed By: Heike Horta on 02-25-2024 Mucus Ql (Urine sed) 0 SEEN /hpf [facility] Nitrite Test strip Ql (U)Ord ered By: Heike Horta on 02-25-2024 Nitrite Ql (U) Negative Negative [facility] No Panel InformationOrdered By: Heike Horta on 02-25-2024 Urine RBC 0 SEEN /hpf 0-5 [facility] Protein Test strip Ql (U)Ord ered By: Heike Horta on 02-25-2024 Protein Ql (U) 15 mg/dl Negative [facility] Squamous epithelial cells de tection in urine sediment by light microscopyOrdered By: Heike Horta on 04-05-2024 Epithelial cells.squamous LM Ql (Urine sed) 0 SEEN /hpf 5-10 [facility] Urine blood detectionOrdered By: Heike Horta on 02-25-2024 RBC Ql (U) Negative Negative [facility] Urine clarityOrdered By: Selina Horta on 02-25-2024 Clarity (U) Clear Clear [facility] Urine color determinationOrd ered By: Heike Horta on 02-25-2024 Color (U) Yellow Yellow [facility] Urine glucose detectionOrder ed By: Heike Horta on 02-25-2024 Glucose Ql (U) 1000 mg/dl Normal [facility] Urine leukocyte esterase det ection by dipstickOrdered By: Heike Horta on 02-25-2024 Leukocyte esterase Test strip Ql (U) Negative Negative [facility] Urine pHOrdered By: Heike Singh am on 02-25-2024 pH (U) 5.0 [pH] 5.0 - 8.0 [facility] Urine sediment bacteria coun t by microscopy (number/high power field)Ordered By: Heike Horta on 02-25-2024 Bacteria LM.HPF (Urine sed) [#/Area] 0 /[HPF] None Seen [facility] Urine specific gravity measu rementOrdered By: Heike Horta on 02-25-2024 Specific gravity (U) [Rel density] 1.020 1.002-1.03 0 [facility] Urine urobilinogen measureme ntOrdered By: Heike Horta on 02-25-2024 Urobilinogen Ql (U) Normal mg/dl Normal [facility] Thin prep Papanicolaou smear with manual screeningOrdered By: Heike Horta on 02-22-2024 Thin prep Papanicolaou smear with manual screening 183 mg/dL 74-106 [facility] Comment on above: MANAGEMENT OF PATIEN T CARE PER NURSING PROTOCOL Whole blood hemoglobin A1c/t otal hemoglobin ratio (mass fraction)Ordered By: Jose Sahni on 02-22-2024 HbA1c (Bld) [Mass fraction] 7.0 % 3.8-5.6 [facility] Comment on above: Normal < 5.7 % Predi abetic 5.7 - 6.4 % Diabetic >or= 6.5 % Please note range changes. Absolute lymphocyte countOrd ered By: Jose Jaime on 02-21-2024 Lymphocytes Auto (Unsp spec) [#/Vol] 1.08 10*3/uL 0.83-4.51 [facility] Activated partial thrombopla stin time (aPTT) in platelet poor plasma by coagulation aOrdered By: Jose Jaime on 02-21-2024 aPTT Coag (PPP) [Time] 24.8 s 24.1-36.2 [facility] Automated lymphocyte count a s percentage of total leukocytesOrdered By: Jose Alemandarnell on 02-21-2024 Lymphocytes/100 WBC Auto (Unsp spec) 5.3 % 19-41 [facility] Basophil percentageOrdered B y: Jose Jaime on 02-21-2024 Lactate [Moles/Vol] 1.5 mmol/L 0.4-2.0 [facility] Basophil percentage 0-5 SEEN /hpf 0-5 [facility] Basophils/100 WBC (Bld) 0.1 % 0-1 [facility] Bilirubin [Mass/Vol] 0.60 mg/dL 0.20-1.00 [facility] Comment on above: For patients on eltr ombopag therapy, use of Dimension [place] TBIL is not recommended. Chloride [Moles/Vol] 100 mmol/L 98-107 [facility] Eosinophils/100 WBC (Bld) 0.0 % 0-5 [facility] Glucose [Mass/Vol] 241 mg/dL 74-106 [facility] Comment on above: Glucose result great er than or equal to 200 mg/dLsuggests DIABETES MELLITUS per A.D.A. criteria. Hemoglobin (Bld) [Mass/Vol] 12.2 g/dL 12.0-15.0 [facility] Monocytes/100 WBC (Bld) 5.5 % 0-10 [facility] Neutrophils (Bld) [#/Vol] 18.1 10*3/uL 2.0-7.7 [facility] Neutrophils/100 WBC (Bld) 88.4 % 47-70 [facility] Potassium [Moles/Vol] 4.6 mmol/L 3.5-5.1 [facility] Protein [Mass/Vol] 7.8 g/dL 6.4-8.2 [facility] Sodium [Moles/Vol] 137 mmol/L 136-145 [facility] WBC (Bld) [#/Vol] 20.5 10*3/uL 4.4-11.0 [facility] Bilirubin Test strip Ql (U)O rdered By: Jose Jaime on 02-21-2024 Bilirubin Ql (U) 1 mg/dL Negative [facility] Comment on above: COLOR OF URINE MAY A FFECT DIPSTICK RESULTS. Determination of erythrocyte mean corpuscular volume (MCV)Ordered By: Jose Jaime on 02-21-2024 MCV (RBC) [Entitic vol] 91.5 fL 81-99 [facility] Erythrocyte distribution wid th ratioOrdered By: Jose Jaime on 02-21-2024 Erythrocyte distribution width (RBC) [Ratio] 13.3 % 11.6-14.6 [facility] Erythrocyte distribution wid th standard deviationOrdered By: Jose Jaime on 02-21-2024 Erythrocyte distribution width (RBC) [Entitic vol] 45.0 fL 35.1-43.9 [facility] Hematocrit Auto (Bld) [Volum e fraction]Ordered By: Jose Jaime on 02-21-2024 Hematocrit (Bld) [Volume fraction] 36.4 % 37-47 [facility] Immature granulocytes/100 WB C Auto (Bld)Ordered By: Jose Jaime on 02-21-2024 Immature granulocytes/100 WBC (Bld) 0.700 % 0.0-0.9 [facility] Comment on above: IG% - Immature Granu locytes (promyelocytes, myelocytes and metamyelocytes) > 1% indicates that a LEFT SHIFT is Present. Ketones Test strip Ql (U)Ord ered By: Jose Jaime on 02-21-2024 Ketones Ql (U) 5 mg/dl Negative [facility] Laboratory - Chemistry and C hemistry - challengeOrdered By: Jose Jaime on 02-21-2024 Albumin/Globulin [Mass ratio] 0.9 {ratio} 0.9-2.4 [facility] ALP [Catalytic activity/Vol] 58 U/L 45-117 [facility] ALT [Catalytic activity/Vol] 28 U/L 13-56 [facility] CO2 [Moles/Vol] 24.0 mmol/L 21.0-32.0 [facility] Globulin (S) [Mass/Vol] 4.1 g/dL 2.2-4.2 [facility] Lipase [Catalytic activity/Vol] 18 U/L 13-75 [facility] Comment on above: Please note:LIPASE r evised reference range effective 23. New Lipase methodology. Expected to produce lower values than the previous assay method. NEW Reference Range: 13 - 75 U/L Urea nitrogen/Creatinine [Mass ratio] 14.9 mg/mg 10-20 [facility] Laboratory - CoagulationOrde red By: Jose Jaime on 02-21-2024 INR Coag (Bld) [Relative time] 1.2 {INR} [facility] PT Coag (PPP) [Time] 15.1 s 11.7-14.9 [facility] Laboratory - Hematology and Cell countsOrdered By: Jose Jaime on 02-21-2024 MCH (RBC) [Entitic mass] 30.7 pg 27.0-32.0 [facility] MCHC (RBC) [Mass/Vol] 33.5 g/dL 32-36 [facility] Nucleated RBC/100 WBC (Bld) [Ratio] 0 % 0-5 [facility] Platelet mean volume (Bld) [Entitic vol] 11.3 fL 6.2-12.0 [facility] Platelets (Bld) [#/Vol] 198 10*3/uL 150-450 [facility] Lower GI hemoglobin IA Ql (S tl)Ordered By: Jose Jaime on 02-21-2024 Stool Occult Blood (EDUARDO) Positive [facility] Mucus LM Ql (Urine sed)Order ed By: Jose Jaime on 02-21-2024 Mucus Ql (Urine sed) 0 SEEN /hpf [facility] Nitrite Test strip Ql (U)Ord ered By: Jose Jaime on 02-21-2024 Nitrite Ql (U) Negative Negative [facility] No Panel InformationOrdered By: Jose Jaime on 02-21-2024 Urine RBC 0-5 SEEN /hpf 0-5 [facility] Estimated GFR (MDRD) Amer 30 mL/min >60 [facility] Comment on above: GFR Calc Estimated GFR (MDRD) Non-Af Amer 25 mL/min >60 [facility] Comment on above: Non- GFR Calc Protein Test strip Ql (U)Ord ered By: Jose Jaime on 02-21-2024 Protein Ql (U) 15 mg/dl Negative [facility] RBC Auto (Bld) [#/Vol]Ordere d By: Jose Jaime on 02-21-2024 RBC (Bld) [#/Vol] 3.98 10*6/uL 4.2-5.4 [facility] Serum or plasma calcium loco urement (mass/volume)Ordered By: Jose Jaime on 02-21-2024 Calcium [Mass/Vol] 9.4 mg/dL 8.5-10.1 [facility] Serum or plasma creatinine m easurement (mass/volume)Ordered By: Jose Jaime on 02-21-2024 Creatinine [Mass/Vol] 2.08 mg/dL 0.55-1.02 [facility] Comment on above: The validity of the calculated GFR & GFRAA in patients over 70 years has not been determined. Clinical correlation is essential. Serum or plasma urea nitroge n measurement (mass/volume)Ordered By: Jose Jaime on 02-21-2024 Urea nitrogen [Mass/Vol] 31 mg/dL 7-18 [facility] Squamous epithelial cells de tection in urine sediment by light microscopyOrdered By: Jose Jaime on 02-21-2024 Epithelial cells.squamous LM Ql (Urine sed) 0-5 SEEN /hpf 5-10 [facility] Stool enteric pathogen panel by probe and target amplification methodOrdered By: Dannie Hoyos on 02-21-2024 Gastrointestinal pathogens panel ENRIQUE+probe (Stl) [facility] Thin prep Papanicolaou smear with manual screeningOrdered By: Jose Jaime on 02-21-2024 Thin prep Papanicolaou smear with manual screening 3.7 g/dL 3.2-5.0 [facility] Thin prep Papanicolaou smear with manual screening 35 U/L 15-37 [facility] Thin prep Papanicolaou smear with manual screening 13 5-15 [facility] Urine blood detectionOrdered By: Jose Jaime on 02-21-2024 RBC Ql (U) 10 /ul Negative [facility] Urine clarityOrdered By: Ava Jaime on 02-21-2024 Clarity (U) Clear Clear [facility] Urine color determinationOrd ered By: Jose Jaime on 02-21-2024 Color (U) Yellow Yellow [facility] Urine glucose detectionOrder ed By: Jose Jaime on 02-21-2024 Glucose Ql (U) 1000 mg/dl Normal [facility] Urine leukocyte esterase det ection by dipstickOrdered By: Jose Jaime on 02-21-2024 Leukocyte esterase Test strip Ql (U) 25 /ul Negative [facility] Urine pHOrdered By: Jose navarrete on 02-21-2024 pH (U) 5.0 [pH] 5.0 - 8.0 [facility] Urine sediment bacteria coun t by microscopy (number/high power field)Ordered By: Jose Jaime on 02-21-2024 Bacteria LM.HPF (Urine sed) [#/Area] 0 /[HPF] None Seen [facility] Urine specific gravity measu rementOrdered By: Jose Jaime on 02-21-2024 Specific gravity (U) [Rel density] 1.015 1.002-1.03 0 [facility] Urine urobilinogen measureme ntOrdered By: Jose Jaime on 02-21-2024 Urobilinogen Ql (U) 1 mg/dl Normal [facility] Absolute lymphocyte countOrd ered By: Breann East on 02-19-2024 Lymphocytes Auto (Unsp spec) [#/Vol] 2.61 10*3/uL 0.83-4.51 [facility] Automated lymphocyte count a s percentage of total leukocytesOrdered By: Breann East on 02-19-2024 Lymphocytes/100 WBC Auto (Unsp spec) 33.5 % 19-41 [facility] Basophil percentageOrdered B y: Breann East on 02-19-2024 Basophils/100 WBC (Bld) 0.5 % 0-1 [facility] Bilirubin [Mass/Vol] 0.30 mg/dL 0.20-1.00 [facility] Comment on above: For patients on eltr ombopag therapy, use of Dimension [place] TBIL is not recommended. Chloride [Moles/Vol] 107 mmol/L 98-107 [facility] Eosinophils/100 WBC (Bld) 1.8 % 0-5 [facility] Glucose [Mass/Vol] 133 mg/dL 74-106 [facility] Comment on above: Fasting Glucose resu lt greater than or equal to 126 mg/dL suggests DIABETES MELLITUS per A.D.A. criteria. Hemoglobin (Bld) [Mass/Vol] 11.9 g/dL 12.0-15.0 [facility] Monocytes/100 WBC (Bld) 7.3 % 0-10 [facility] Neutrophils (Bld) [#/Vol] 4.4 10*3/uL 2.0-7.7 [facility] Neutrophils/100 WBC (Bld) 56.6 % 47-70 [facility] Potassium [Moles/Vol] 4.6 mmol/L 3.5-5.1 [facility] Protein [Mass/Vol] 7.6 g/dL 6.4-8.2 [facility] Sodium [Moles/Vol] 139 mmol/L 136-145 [facility] WBC (Bld) [#/Vol] 7.8 10*3/uL 4.4-11.0 [facility] Basophil percentage 0 SEEN /hpf 0-5 [facility] Bilirubin Test strip Ql (U)O rdered By: Breann East on 02-19-2024 Bilirubin Ql (U) Negative Negative [facility] Determination of erythrocyte mean corpuscular volume (MCV)Ordered By: Breann East on 02-19-2024 MCV (RBC) [Entitic vol] 93.8 fL 81-99 [facility] Erythrocyte distribution wid th ratioOrdered By: Breann East on 02-19-2024 Erythrocyte distribution width (RBC) [Ratio] 13.2 % 11.6-14.6 [facility] Erythrocyte distribution wid th standard deviationOrdered By: Breann East on 02-19-2024 Erythrocyte distribution width (RBC) [Entitic vol] 45.7 fL 35.1-43.9 [facility] Hematocrit Auto (Bld) [Volum e fraction]Ordered By: Breann East on 02-19-2024 Hematocrit (Bld) [Volume fraction] 36.6 % 37-47 [facility] Immature granulocytes/100 WB C Auto (Bld)Ordered By: Breann East on 02-19-2024 Immature granulocytes/100 WBC (Bld) 0.300 % 0.0-0.9 [facility] Comment on above: IG% - Immature Granu locytes (promyelocytes, myelocytes and metamyelocytes) > 1% indicates that a LEFT SHIFT is Present. Ketones Test strip Ql (U)Ord ered By: Breann East on 02-19-2024 Ketones Ql (U) Negative Negative [facility] Laboratory - Chemistry and C hemistry - challengeOrdered By: Breann East on 02-19-2024 Albumin/Globulin [Mass ratio] 0.9 {ratio} 0.9-2.4 [facility] ALP [Catalytic activity/Vol] 58 U/L 45-117 [facility] ALT [Catalytic activity/Vol] 20 U/L 13-56 [facility] CO2 [Moles/Vol] 29.0 mmol/L 21.0-32.0 [facility] Globulin (S) [Mass/Vol] 3.9 g/dL 2.2-4.2 [facility] Urea nitrogen/Creatinine [Mass ratio] 21.1 mg/mg 10-20 [facility] Laboratory - Hematology and Cell countsOrdered By: Breann East on 02-19-2024 MCH (RBC) [Entitic mass] 30.5 pg 27.0-32.0 [facility] MCHC (RBC) [Mass/Vol] 32.5 g/dL 32-36 [facility] Nucleated RBC/100 WBC (Bld) [Ratio] 0 % 0-5 [facility] Platelet mean volume (Bld) [Entitic vol] 11.0 fL 6.2-12.0 [facility] Platelets (Bld) [#/Vol] 172 10*3/uL 150-450 [facility] Mucus LM Ql (Urine sed)Order ed By: Breann East on 02-19-2024 Mucus Ql (Urine sed) 0 SEEN /hpf [facility] Nitrite Test strip Ql (U)Ord ered By: Breann East on 02-19-2024 Nitrite Ql (U) Negative Negative [facility] No Panel InformationOrdered By: Breann East on 02-19-2024 Estimated Creatinine Clearance Calc 36.28 ml/min [facility] Estimated GFR (MDRD) Amer 51 mL/min >60 [facility] Comment on above: GFR Calc Estimated GFR (MDRD) Non-Af Amer 42 mL/min >60 [facility] Comment on above: Non- GFR Calc Urine RBC 0 SEEN /hpf 0-5 [facility] Protein Test strip Ql (U)Ord ered By: Breann East on 02-19-2024 Protein Ql (U) Negative Negative [facility] RBC Auto (Bld) [#/Vol]Ordere d By: Breann East on 02-19-2024 RBC (Bld) [#/Vol] 3.90 10*6/uL 4.2-5.4 [facility] Serum or plasma calcium loco urement (mass/volume)Ordered By: Breann East on 02-19-2024 Calcium [Mass/Vol] 9.3 mg/dL 8.5-10.1 [facility] Serum or plasma creatinine m easurement (mass/volume)Ordered By: Breann East on 02-19-2024 Creatinine [Mass/Vol] 1.33 mg/dL 0.55-1.02 [facility] Comment on above: The validity of the calculated GFR & GFRAA in patients over 70 years has not been determined. Clinical correlation is essential. Serum or plasma urea nitroge n measurement (mass/volume)Ordered By: Brenan East on 02-19-2024 Urea nitrogen [Mass/Vol] 28 mg/dL 7-18 [facility] Squamous epithelial cells de tection in urine sediment by light microscopyOrdered By: Breann East on 02-19-2024 Epithelial cells.squamous LM Ql (Urine sed) 0 SEEN /hpf 5-10 [facility] Thin prep Papanicolaou smear with manual screeningOrdered By: Breann East on 02-19-2024 Thin prep Papanicolaou smear with manual screening 3.7 g/dL 3.2-5.0 [facility] Thin prep Papanicolaou smear with manual screening 23 U/L 15-37 [facility] Thin prep Papanicolaou smear with manual screening 3 5-15 [facility] Urine blood detectionOrdered By: Breann East on 02-19-2024 RBC Ql (U) Negative Negative [facility] Urine clarityOrdered By: Chaz East on 02-19-2024 Clarity (U) Clear Clear [facility] Urine color determinationOrd ered By: Breann East on 02-19-2024 Color (U) Yellow Yellow [facility] Urine glucose detectionOrder ed By: Breann East on 02-19-2024 Glucose Ql (U) 1000 mg/dl Normal [facility] Urine leukocyte esterase det ection by dipstickOrdered By: Breann East on 02-19-2024 Leukocyte esterase Test strip Ql (U) 25 /ul Negative [facility] Urine pHOrdered By: Niurka East on 02-19-2024 pH (U) 6.0 [pH] 5.0 - 8.0 [facility] Urine sediment bacteria coun t by microscopy (number/high power field)Ordered By: Breann East on 02-19-2024 Bacteria LM.HPF (Urine sed) [#/Area] 0 /[HPF] None Seen [facility] Urine specific gravity measu rementOrdered By: Breann East on 02-19-2024 Specific gravity (U) [Rel density] 1.015 1.002-1.03 0 [facility] Urine urobilinogen measureme ntOrdered By: Breann East on 02-19-2024 Urobilinogen Ql (U) Normal mg/dl Normal [facility] .Auto Diffon 02-14-2024 Basophil, Absolute 0.0 10 3/mcL Normal 0.0-0.2 [facility] ([place]) Comment on above: Performed By: #### L IPID, FERR, GFR, ANEU, CBC, TSH, CMP, ADIFF, A1C, VIDH #### [id number] [place], [place] [address] Basophils/100 WBC (Bld) 0.5 % Normal 0.0-2.5 [facility] ([place]) Comment on above: Performed By: #### L IPID, FERR, GFR, ANEU, CBC, TSH, CMP, ADIFF, A1C, VIDH #### [address] [address] Eosinophil, Absolute 0.2 10 3/mcL Normal 0.0-0.4 [facility] ([place]) Comment on above: Performed By: #### L IPID, FERR, GFR, ANEU, CBC, TSH, CMP, ADIFF, A1C, VIDH #### [address] [address] Eosinophils/100 WBC (Bld) 2.5 % Normal 0.0-7.0 [facility] ([place]) Comment on above: Performed By: #### L IPID, FERR, GFR, ANEU, CBC, TSH, CMP, ADIFF, A1C, VIDH #### [address] [address] Lymphocyte, Absolute 2.4 10 3/mcL Normal 0.8-3.9 [facility] ([place]) Comment on above: Performed By: #### L IPID, FERR, GFR, ANEU, CBC, TSH, CMP, ADIFF, A1C, VIDH #### [address] [address] Lymphocytes/100 WBC (Bld) 30.7 % Normal 10.0-50.0 [facility] ([place]) Comment on above: Performed By: #### L IPID, FERR, GFR, ANEU, CBC, TSH, CMP, ADIFF, A1C, VIDH #### [address] [address] Monocyte, Absolute 0.5 10 3/mcL Normal 0.2-1.0 [facility] ([place] Comment on above: Performed By: #### L IPID, FERR, GFR, ANEU, CBC, TSH, CMP, ADIFF, A1C, VIDH #### [address] [address] Monocytes/100 WBC (Bld) 6.7 % Normal 1.7-13.0 [facility] ([place]) Comment on above: Performed By: #### L IPID, FERR, GFR, ANEU, CBC, TSH, CMP, ADIFF, A1C, VIDH #### [address] [address] Neutrophils/100 WBC (Bld) 59.6 % Normal 37.0-80.0 [facility] ([place]) Comment on above: Performed By: #### L IPID, FERR, GFR, ANEU, CBC, TSH, CMP, ADIFF, A1C, VIDH #### [id number] [place], [place] [address] .GFRon 02-14-2024 GFR 51 ml/min/1.73sqm Normal [facility] ([place]) Comment on above: Result Comment: GFR Population mean for , Non- Americans Ages 20-29 = 116 mL/min/1.73 sq.m. Ages 30-39 = 107 mL/min/1.73 sq.m. Ages 40-49 = 99 mL/min/1.73 sq.m. Ages 50-59 = 93 mL/min/1.73 sq.m. Ages 60-69 = 85 mL/min/1.73 sq.m. Ages 70+ = 75 mL/min/1.73 sq.m. Chronic Kidney Disease: Less than 60 mL/min/1.73 square meters End Stage Renal Disease: Less than 15 mL/min/1.73 square meters Performed By: #### L IPID, FERR, GFR, ANEU, CBC, TSH, CMP, ADIFF, A1C, VIDH ####[address] [place], [place] [address] GFR Non- 42 ml/min/1.73sqm Normal [facility] ([place]) Comment on above: Result Comment: GFR Population mean for , Non- Americans Ages 20-29 = 116 mL/min/1.73 sq.m. Ages 30-39 = 107 mL/min/1.73 sq.m. Ages 40-49 = 99 mL/min/1.73 sq.m. Ages 50-59 = 93 mL/min/1.73 sq.m. Ages 60-69 = 85 mL/min/1.73 sq.m. Ages 70+ = 75 mL/min/1.73 sq.m. Chronic Kidney Disease: Less than 60 mL/min/1.73 square meters End Stage Renal Disease: Less than 15 mL/min/1.73 square meters Performed By: #### L IPID, FERR, GFR, ANEU, CBC, TSH, CMP, ADIFF, A1C, VIDH ####[address] [address] .NEUABSon 02-14-2024 Neutrophil, Absolute 4.6 10 3/mcL Normal 2.9-6.2 [facility] ([place]) Comment on above: Performed By: #### L IPID, FERR, GFR, ANEU, CBC, TSH, CMP, ADIFF, A1C, VIDH #### [address] [address] A1Con 02-14-2024 HbA1c (Bld) [Mass fraction] 7.2 % High 4.3-6.4 [facility] ([place]) Comment on above: Performed By: #### L IPID, FERR, GFR, ANEU, CBC, TSH, CMP, ADIFF, A1C, VIDH #### [address] [address] CBCon 02-14-2024 Erythrocyte distribution width (RBC) [Ratio] 13.9 % Normal 11.5-14.5 [facility] ([place]) Comment on above: Performed By: #### L IPID, FERR, GFR, ANEU, CBC, TSH, CMP, ADIFF, A1C, VIDH #### [address] [address] Hematocrit (Bld) [Volume fraction] 34.7 % Low 37.0-47.0 [facility] ([place]) Comment on above: Performed By: #### L IPID, FERR, GFR, ANEU, CBC, TSH, CMP, ADIFF, A1C, VIDH #### [address] [address] Hgb 11.9 G/dL Low 12.0-16.0 [facility] ([place]) Comment on above: Performed By: #### L IPID, FERR, GFR, ANEU, CBC, TSH, CMP, ADIFF, A1C, VIDH #### [address] [place] [address] MCH (RBC) [Entitic mass] 30.8 pg Normal 27.0-31.2 [facility] ([place]) Comment on above: Performed By: #### L IPID, FERR, GFR, ANEU, CBC, TSH, CMP, ADIFF, A1C, VIDH #### [address] [place] [address] MCHC 34.4 G/dL Normal 33.0-37.0 [facility] ([place]) Comment on above: Performed By: #### L IPID, FERR, GFR, ANEU, CBC, TSH, CMP, ADIFF, A1C, VIDH #### [address] [address] MCV (RBC) [Entitic vol] 89.7 fL Normal 80.0-94.0 [facility] ([place]) Comment on above: Performed By: #### L IPID, FERR, GFR, ANEU, CBC, TSH, CMP, ADIFF, A1C, VIDH #### [address] [address] Platelet 154 10 3/mcL Normal 130-400 [facility] ([place]) Comment on above: Performed By: #### L IPID, FERR, GFR, ANEU, CBC, TSH, CMP, ADIFF, A1C, VIDH #### [address] [address] Platelet mean volume (Bld) [Entitic vol] 9.1 fL Normal 7.4-10.4 [facility] ([place]) Comment on above: Performed By: #### L IPID, FERR, GFR, ANEU, CBC, TSH, CMP, ADIFF, A1C, VIDH #### [address] [address] RBC 3.87 10 6/mcL Low 4.20-5.40 [facility] ([place]) Comment on above: Performed By: #### L IPID, FERR, GFR, ANEU, CBC, TSH, CMP, ADIFF, A1C, VIDH #### [id number] WBC 7.8 10 3/mcL Normal 4.6-10.8 [facility] ([place]) Comment on above: Performed By: #### L IPID, FERR, GFR, ANEU, CBC, TSH, CMP, ADIFF, A1C, VIDH #### [address] [place], [place] [address] CMPon 02-14-2024 Albumin Level 3.7 G/dL Normal 3.4-4.8 [facility] ([place]) Comment on above: Performed By: #### L IPID, FERR, GFR, ANEU, CBC, TSH, CMP, ADIFF, A1C, VIDH ####[address] [place], [place] [address] Albumin/Globulin [Mass ratio] 1.1 {ratio} Normal 1.1-2.5 [facility] ([place]) Comment on above: Performed By: #### L IPID, FERR, GFR, ANEU, CBC, TSH, CMP, ADIFF, A1C, VIDH ####[address] [place], [place] [address] ALP [Catalytic activity/Vol] 61 U/L Normal 40-135 [facility] ([place]) Comment on above: Performed By: #### L IPID, FERR, GFR, ANEU, CBC, TSH, CMP, ADIFF, A1C, VIDH ####[address] [place], [place] [address] ALT [Catalytic activity/Vol] 21 U/L Normal 14-59 [facility] ([place]) Comment on above: Performed By: #### L IPID, FERR, GFR, ANEU, CBC, TSH, CMP, ADIFF, A1C, VIDH ####[address] [place], [place] [address] AST [Catalytic activity/Vol] 19 U/L Normal 10-40 [facility] ([place]) Comment on above: Performed By: #### L IPID, FERR, GFR, ANEU, CBC, TSH, CMP, ADIFF, A1C, VIDH ####[address] [place], [place] [address] Bili Total 0.3 mg/dL Normal 0.2-1.0 [facility] ([place]) Comment on above: Result Comment: Use of this assay is not recommended for patients undergoing treatment with eltrombopag due to the potential for falsely elevated results. Performed By: #### L IPID, FERR, GFR, ANEU, CBC, TSH, CMP, ADIFF, A1C, VIDH ####[address] [place], [place] [address] BUN/Creatinine Ratio 23 ratio Normal 7-27 [facility] ([place] Comment on above: Performed By: #### L IPID, FERR, GFR, ANEU, CBC, TSH, CMP, ADIFF, A1C, VIDH ####[address] [place], [place] [address] Calcium [Mass/Vol] 9.1 mg/dL Normal 8.4-10.2 [facility] ([place]) Comment on above: Performed By: #### L IPID, FERR, GFR, ANEU, CBC, TSH, CMP, ADIFF, A1C, VIDH ####[address] [place], [place] [address] Chloride [Moles/Vol] 103 mmol/L Normal 98-107 [facility] ([place] Comment on above: Performed By: #### L IPID, FERR, GFR, ANEU, CBC, TSH, CMP, ADIFF, A1C, VIDH ####[address] [place], [place] [address] CO2 [Moles/Vol] 29 mmol/L Normal 23-31 [facility] ([place] Comment on above: Performed By: #### L IPID, FERR, GFR, ANEU, CBC, TSH, CMP, ADIFF, A1C, VIDH ####[address] [place], [place] [address] Creatinine [Mass/Vol] 1.26 mg/dL High 0.55-1.02 [facility] ([place]) Comment on above: Performed By: #### L IPID, FERR, GFR, ANEU, CBC, TSH, CMP, ADIFF, A1C, VIDH ####[address] [place], [place] [address] Electrolyte Balance 8.0 mEq/L Normal 4.0-15.0 [facility] ([place]) Comment on above: Performed By: #### L IPID, FERR, GFR, ANEU, CBC, TSH, CMP, ADIFF, A1C, VIDH ####[address] [place], [place] [address] Globulin 3.3 G/dL Normal [facility] ([place]) Comment on above: Performed By: #### L IPID, FERR, GFR, ANEU, CBC, TSH, CMP, ADIFF, A1C, VIDH ####[address] [place], [place] [address] Glucose [Mass/Vol] 126 mg/dL High 83-110 [facility] ([place]) Comment on above: Performed By: #### L IPID, FERR, GFR, ANEU, CBC, TSH, CMP, ADIFF, A1C, VIDH ####[address] [place], [place] [address] Potassium [Moles/Vol] 4.6 mmol/L Normal 3.5-5.1 [facility] ([place]) Comment on above: Performed By: #### L IPID, FERR, GFR, ANEU, CBC, TSH, CMP, ADIFF, A1C, VIDH ####[address] [place], [place] [address] Sodium [Moles/Vol] 140 mmol/L Normal 136-145 [facility] ([place]) Comment on above: Performed By: #### L IPID, FERR, GFR, ANEU, CBC, TSH, CMP, ADIFF, A1C, VIDH ####[address] [place], [place] [address] Total Protein 7.0 G/dL Normal 6.4-8.2 [facility] ([place]) Comment on above: Performed By: #### L IPID, FERR, GFR, ANEU, CBC, TSH, CMP, ADIFF, A1C, VIDH ####[address] [place], [place] [address] Urea nitrogen [Mass/Vol] 29 mg/dL High 7-18 [facility] ([place]) Comment on above: Performed By: #### L IPID, FERR, GFR, ANEU, CBC, TSH, CMP, ADIFF, A1C, VIDH ####[address] [place], [place] [address] Joselyn 02-14-2024 Ferritin [Mass/Vol] 155.0 ng/mL Normal 8.0-252.0 [facility] ([place]) Comment on above: Performed By: #### L IPID, FERR, GFR, ANEU, CBC, TSH, CMP, ADIFF, A1C, VIDH #### Katie [address] [place], [place] [address] LIPIDon 02-14-2024 Cholesterol [Mass/Vol] 124 mg/dL Normal 0-200 [facility] ([place]) Comment on above: Result Comment: Chol esterol Reference Interval: Less than 200 Desirable 200-239 Borderline high risk 240 and above High risk Performed By: #### L IPID, FERR, GFR, ANEU, CBC, TSH, CMP, ADIFF, A1C, VIDH ####[address] [place], [place] [address] Cholesterol in HDL [Mass/Vol] 38 mg/dL Low 40-60 [facility] ([place]) Comment on above: Performed By: #### L IPID, FERR, GFR, ANEU, CBC, TSH, CMP, ADIFF, A1C, VIDH ####[address] [place], [place] [address] Cholesterol in LDL [Mass/Vol] 37 mg/dL Normal 0-130 [facility] ([place]) Comment on above: Performed By: #### L IPID, FERR, GFR, ANEU, CBC, TSH, CMP, ADIFF, A1C, VIDH ####[address] [place], [place] [address] Triglyceride [Mass/Vol] 246 mg/dL High 0-150 [facility] ([place]) Comment on above: Result Comment: Trig lyceride Reference Interval: Less than 150 Normal 150-199 Borderline high risk 200-499 High risk 500 or higher Very high risk Performed By: #### L IPID, FERR, GFR, ANEU, CBC, TSH, CMP, ADIFF, A1C, VIDH ####[address] [place], [place] [address] TSHon 02-14-2024 TSH Qn 2.18 m[IU]/L Normal 0.36-3.74 [facility] ([place]) Comment on above: Performed By: #### L IPID, FERR, GFR, ANEU, CBC, TSH, CMP, ADIFF, A1C, VIDH #### [address] [place], [place] [address] VIDHon 02-14-2024 Vit. D 25-Hydroxy 55.4 ng/mL Normal [facility] ([place]) Comment on above: Result Comment: Inte rpretive Values Based on Total 25(OH) Vitamin D: Deficient <20 ng/mL Insufficient 20 - <30 ng/mL Sufficient 30-100 ng/mL Performed By: #### L IPID, FERR, GFR, ANEU, CBC, TSH, CMP, ADIFF, A1C, VIDH ####[address] [place], [place] [address] BD BONE DENSITY DEXA AXIAL S KELETON 12-27-2023 BD BONE DENSITY DEXA AXIAL SKELETON ORIGINAL EXAMINATION: BONE DENSITOMETRY 12/27/2023 2:34 pm TECHNIQUE: A bone density dual x-ray absorptiometry (DEXA) scan was performed of the axial (e.g. hips, spine) and/or appendicular (e.g. radius) skeleton as appropriate. COMPARISON: None. HISTORY: ORDERING SYSTEM PROVIDED HISTORY: Reason for Exam: Osteoporosis Screening FINDINGS: T Score Left Femoral Neck: -0.2 Left Femoral Neck: 0.825 (g/cm2) T Score Left Hip: -1.3 Left Hip: 0.787 (g/cm2) T Score Lumbar Spine: -0.1 Lumbar Spine: 1.034 (g/cmd2) FRAX: 10 year fracture risk assessment Major osteoporotic fracture: 6.6% Hip fracture: 0.5% IMPRESSION: Osteopenia by WHO criteria. World Health Organization criteria: (Comparing with young normal sex matched population) - Normal: T-score at or above -1 SD (standard deviation) - Osteopenia: T-score between -1 and -2.5 SD - Osteoporosis: T-score at or below -2.5 SD The NOF recommends that FDA-approved medical therapies be considered in post-menopausal women and men age >/= 50 years with a: * Hip or vertebral fracture, or * T-score of /= 20% for major osteoporotic fractures or * >/= 3% for hip fractures All treatment decisions require clinical judgement and consideration of individual patient factors, including patient preferences, comorbidities, previous drug use, risk factors not captured in the FRAX registered model (e.g., frailty, falls, vitamin D deficiency, increased bone turnover, interval significant decline in bone density) and possible under- or over-estimation of fracture risk by FRAX. Interpreted by: Tony Llanes DO Preliminary Report By: Tony Llanes DO Electronically signed By Tony Llanes DO Dictated Date: 12/27/2023 3:14:26 PM Prelim Date: 12/27/2023 3:14:57 PM Sign Date: 12/27/2023 3:14:57 PM Ordering Provider: ADRIENNE Bassett [facility] ([place]) MA MAMMOGRAM SCREENING BILAT ERAL W/TOMOon 12-27-2023 MA MAMMOGRAM SCREENING BILATERAL W/YOAV ORIGINAL FROM: [place] [id number] PROCEDURE FOR: MANSI GarridoZeke GORDO [address] [place] [id number] Home: PID#: [id number] Exam#: [id number] : 1955 Age: 68 TO: ADRIENNE BYERS DO [address] [place] [address] Fax: NO FAX EXAMINATION: SCREENING DIGITAL BILATERAL MAMMOGRAM WITH TOMOSYNTHESIS, 12/27/2023 1:07 pm TECHNIQUE: Screening mammography of the bilateral breasts was performed with tomosynthesis. 2D standard and 3D tomosynthesis combination imaging performed through both breasts in the MLO and CC projection. Computer aided detection was utilized in the interpretation of this exam. COMPARISON: 10/08/2021, 09/09/2020 HISTORY: Breast cancer screening. FINDINGS: BREAST DENSITY: Scattered fibroglandular tissue There are no significant masses or calcifications. IMPRESSION: No mammographic evidence of malignancy. Continued screening with annual mammograms is recommended. Junito Garcia risk calculations, generated with the history provided, report this patient's 10 year risk and lifetime risk for developing breast cancer at 1.2% and 1.9%, respectively. Based on this assessment tool, if the patient's calculated lifetime risk is below 20%, then the patient is considered at average risk for developing breast cancer. If the patient's calculated lifetime risk is at or above 20%, then the patient is considered high risk for developing breast cancer and may be a candidate for supplemental breast MRI screening in addition to annual mammographic screening per the [employer]. BIRADS: MAMMOGRAM BI-RADS: 1: Negative RECALL: 1 year screening RECALL TYPE: mammo LETTER SENT: Normal BI-RADS 1 and 2 Interpreted by: Lesley Levine Preliminary Report By: Lesley Levine Electronically signed By Lesley Levine Dictated Date: 12/27/2023 8:56:06 PM Prelim Date: 12/27/2023 8:59:32 PM Sign Date: 12/27/2023 8:59:32 PM Ordering Provider: ADRIENNE BYERS Social Work Administrator: CHARLEE BARCENAS RT(R)(M)(CT) letter sent: Normal BI-RADS 1 and 2 Mammogram BI-RADS: 1 Negative Normal [facility] ([place]) Thin prep Papanicolaou smear with manual screeningOrdered By: Uday Orosco on 12-08-2023 Thin prep Papanicolaou smear with manual screening 129 mg/dL 74-106 [facility] Comment on above: MANAGEMENT OF PATIEN T CARE PER NURSING PROTOCOL LABORATORYOrdered By: Cheli Kuo on 10-25-2023 Cholesterol [Mass/Vol] 123 mg/dL Normal 0 - 2 00 mg/dL AO ADM SS Comment on above: Interpretive Data: C holesterol Reference Interval: Less than 200 Desirable 200-239 Borderline high risk 240 and above High risk Cholesterol in HDL [Mass/Vol] 44 mg/dL Normal 40 - 60 mg/dL AO ADM SS Cholesterol in LDL [Mass/Vol] 51 mg/dL Normal 0 - 130 mg/dL AO ADM SS Triglyceride [Mass/Vol] 139 mg/dL Normal 0 - 150 mg/dL AO ADM SS Comment on above: Interpretive Data: T riglyceride Reference Interval: Less than 150 Normal 150-199 Borderline high risk 200-499 High risk 500 or higher Very high risk LABORATORYOrdered By: SYSTEM SYSTEM on 10-25-2023 Natriuretic peptide.B prohormone N-Terminal [Mass/Vol] 297 pg/mL High 0 - 125 pg/mL AO ADM SS Comment on above: Interpretive Data: N T-proBNP results of less than 300 pg/mL effectively rules out acute congestive heart failure with 99% negative predictive value. LIPIDon 10-25-2023 Cholesterol [Mass/Vol] 123 mg/dL Normal 0-200 [facility] ([place]) Comment on above: Result Comment: Chol esterol Reference Interval: Less than 200 Desirable 200-239 Borderline high risk 240 and above High risk Performed By: #### C RE, GFR #### [address] [address] Cholesterol in HDL [Mass/Vol] 44 mg/dL Normal 40-60 [facility] ([place]) Comment on above: Performed By: #### C RE, GFR #### [address] [address] Cholesterol in LDL [Mass/Vol] 51 mg/dL Normal 0-130 [facility] ([place]) Comment on above: Performed By: #### C RE, GFR #### [address] [address] Triglyceride [Mass/Vol] 139 mg/dL Normal 0-150 [facility] ([place]) Comment on above: Result Comment: Trig lyceride Reference Interval: Less than 150 Normal 150-199 Borderline high risk 200-499 High risk 500 or higher Very high risk Performed By: #### C RE, GFR #### [address] [address] PBNPon 10-25-2023 Natriuretic peptide B (Bld) [Mass/Vol] 297 pg/mL High 0-125 [facility] ([place]) Comment on above: Result Comment: NT-p roBNP results of less than 300 pg/mL effectively rules out acute congestive heart failure with 99% negative predictive value. Performed By: #### L IPID, PBNP ####[address] [address] Glucose Glucometer (BldC) [M ass/Vol]Ordered By: Camacho Aguilar on 10-12-2023 Glucose [Mass/Vol] 207 mg/dL 74-106 [facility] Comment on above: MANAGEMENT OF PATIEN T CARE PER NURSING PROTOCOL Absolute lymphocyte countOrd ered By: Tony Mayer on 10-11-2023 Lymphocytes Auto (Unsp spec) [#/Vol] 2.84 10*3/uL 0.83-4.51 [facility] Basophil percentageOrdered B y: Tony Mayer on 10-11-2023 Basophil percentage 3.6 mg/dL 2.5-4.9 [facility] Basophils/100 WBC (Bld) 0.8 % 0-1 [facility] Chloride [Moles/Vol] 111 mmol/L 98-107 [facility] Eosinophils/100 WBC (Bld) 2.5 % 0-5 [facility] Glucose [Mass/Vol] 123 mg/dL 74-106 [facility] Comment on above: Fasting Glucose resu lt from 100 to 125 mg/dL suggests IMPAIRED HOMEOSTASIS per A.D.A. criteria. Neutrophils (Bld) [#/Vol] 1.7 10*3/uL 2.0-7.7 [facility] Neutrophils/100 WBC (Bld) 33.5 % 47-70 [facility] Potassium [Moles/Vol] 4.0 mmol/L 3.5-5.1 [facility] Sodium [Moles/Vol] 142 mmol/L 136-145 [facility] WBC (Bld) [#/Vol] 5.2 10*3/uL 4.4-11.0 [facility] Blood erythrocytes count (nu mber/volume)Ordered By: Tony Mayer on 10-11-2023 RBC (Bld) [#/Vol] 3.75 10*6/uL 4.2-5.4 [facility] Blood hemoglobin measurement (mass/volume)Ordered By: Tony Mayer on 10-11-2023 Hemoglobin (Bld) [Mass/Vol] 11.5 g/dL 12.0-15.0 [facility] Blood lymphocytes/100 leukoc ytesOrdered By: Tony Mayer on 10-11-2023 Lymphocytes/100 WBC (Bld) 54.9 % 19-41 [facility] Blood monocytes/100 leukocyt esOrdered By: Tony Mayer on 10-11-2023 Monocytes/100 WBC (Bld) 8.3 % 0-10 [facility] Blood platelet mean volumeOr dered By: Tony Mayer on 10-11-2023 Platelet mean volume (Bld) [Entitic vol] 10.8 fL 6.2-12.0 [facility] Determination of erythrocyte mean corpuscular volume (MCV)Ordered By: Tony Mayer on 10-11-2023 MCV (RBC) [Entitic vol] 96.0 fL 81-99 [facility] Hematocrit Auto (Bld) [Volum e fraction]Ordered By: Tony Mayer on 10-11-2023 Hematocrit (Bld) [Volume fraction] 36.0 % 37-47 [facility] Laboratory - Chemistry and C hemistry - challengeOrdered By: Tony Mayer on 10-11-2023 CO2 [Moles/Vol] 25.0 mmol/L 21.0-32.0 [facility] Magnesium [Mass/Vol] 2.2 mg/dL 1.6-2.6 [facility] Urea nitrogen/Creatinine [Mass ratio] 27.2 mg/mg 10-20 [facility] Laboratory - Hematology and Cell countsOrdered By: Tony Mayer on 10-11-2023 Erythrocyte distribution width (RBC) [Entitic vol] 48.7 fL 35.1-43.9 [facility] Erythrocyte distribution width (RBC) [Ratio] 13.7 % 11.6-14.6 [facility] Immature granulocytes/100 WBC (Bld) 0.000 % 0.0-0.9 [facility] Comment on above: IG% - Immature Granu locytes (promyelocytes, myelocytes and metamyelocytes) > 1% indicates that a LEFT SHIFT is Present. MCH (RBC) [Entitic mass] 30.7 pg 27.0-32.0 [facility] Nucleated RBC/100 WBC (Bld) [Ratio] 0 % 0-5 [facility] MCHC Auto (RBC) [Mass/Vol]Or dered By: Tony Mayer on 10-11-2023 MCHC (RBC) [Mass/Vol] 31.9 g/dL 32-36 [facility] No Panel InformationOrdered By: Tony Mayer on 10-11-2023 Estimated Creatinine Clearance Calc 56.77 ml/min [facility] Estimated GFR (MDRD) Amer 78 mL/min >60 [facility] Comment on above: GFR Calc Estimated GFR (MDRD) Non-Af Amer 64 mL/min >60 [facility] Comment on above: Non- GFR Calc Platelets bldOrdered By: Jesu Mayer on 10-11-2023 Platelets (Bld) [#/Vol] 144 10*3/uL 150-450 [facility] Serum or plasma calcium loco urement (mass/volume)Ordered By: Tony Mayer on 10-11-2023 Calcium [Mass/Vol] 8.7 mg/dL 8.5-10.1 [facility] Serum or plasma creatinine m easurement (mass/volume)Ordered By: Tony Mayer on 10-11-2023 Creatinine [Mass/Vol] 0.92 mg/dL 0.55-1.02 [facility] Comment on above: The validity of the calculated GFR & GFRAA in patients over 70 years has not been determined. Clinical correlation is essential. Serum or plasma urea nitroge n measurement (mass/volume)Ordered By: Tony Mayer on 10-11-2023 Urea nitrogen [Mass/Vol] 25 mg/dL 7-18 [facility] Thin prep Papanicolaou smear with manual screeningOrdered By: Tony Mayer on 10-11-2023 Thin prep Papanicolaou smear with manual screening 6 5-15 [facility] Basophil percentageOrdered B y: Jaci Greco on 10-08-2023 Bilirubin [Mass/Vol] 0.30 mg/dL 0.20-1.00 [facility] Comment on above: For patients on eltr ombopag therapy, use of Dimension [place] TBIL is not recommended. Protein [Mass/Vol] 6.5 g/dL 6.4-8.2 [facility] Laboratory - Chemistry and C hemistry - challengeOrdered By: Jaci Greco on 10-08-2023 ALP [Catalytic activity/Vol] 48 U/L 45-117 [facility] ALT [Catalytic activity/Vol] 17 U/L 13-56 [facility] Globulin (S) [Mass/Vol] 3.2 g/dL 2.2-4.2 [facility] Serum or plasma albumin loco urement (mass/volume)Ordered By: Jaci Fannie on 10-08-2023 Albumin [Mass/Vol] 3.3 g/dL 3.2-5.0 [facility] Serum or plasma albumin/glob ulin mass ratioOrdered By: [place] [facility] Fannie on 10-08-2023 Albumin/Globulin [Mass ratio] 1.0 {ratio} 0.9-2.4 [facility] Thin prep Papanicolaou smear with manual screeningOrdered By: [facility] Fannie on 10-08-2023 Thin prep Papanicolaou smear with manual screening 18 U/L 15-37 [facility] Whole blood hemoglobin A1c/t otal hemoglobin ratio (mass fraction)Ordered By: Jaci Fannie on 10-08-2023 HbA1c (Bld) [Mass fraction] 6.8 % 3.8-5.6 [facility] Comment on above: Normal < 5.7 % Predi abetic 5.7 - 6.4 % Diabetic >or= 6.5 % Please note range changes. Absolute lymphocyte countOrd ered By: David Best on 10-07-2023 Lymphocytes Auto (Unsp spec) [#/Vol] 3.02 10*3/uL 0.83-4.51 [facility] Basophil percentageOrdered B y: David Best on 10-07-2023 Basophils/100 WBC (Bld) 0.6 % 0-1 [facility] Chloride [Moles/Vol] 108 mmol/L 98-107 [facility] Eosinophils/100 WBC (Bld) 0.9 % 0-5 [facility] Glucose [Mass/Vol] 137 mg/dL 74-106 [facility] Comment on above: Fasting Glucose resu lt greater than or equal to 126 mg/dL suggests DIABETES MELLITUS per A.D.A. criteria. Neutrophils (Bld) [#/Vol] 2.7 10*3/uL 2.0-7.7 [facility] Neutrophils/100 WBC (Bld) 41.7 % 47-70 [facility] Potassium [Moles/Vol] 4.4 mmol/L 3.5-5.1 [facility] Sodium [Moles/Vol] 140 mmol/L 136-145 [facility] WBC (Bld) [#/Vol] 6.4 10*3/uL 4.4-11.0 [facility] Blood erythrocytes count (nu mber/volume)Ordered By: David Best on 10-07-2023 RBC (Bld) [#/Vol] 3.91 10*6/uL 4.2-5.4 [facility] Blood hemoglobin measurement (mass/volume)Ordered By: David Best on 10-07-2023 Hemoglobin (Bld) [Mass/Vol] 12.0 g/dL 12.0-15.0 [facility] Blood lymphocytes/100 leukoc ytesOrdered By: David Best on 10-07-2023 Lymphocytes/100 WBC (Bld) 47.6 % 19-41 [facility] Blood monocytes/100 leukocyt esOrdered By: David Best on 10-07-2023 Monocytes/100 WBC (Bld) 9.0 % 0-10 [facility] Blood platelet mean volumeOr dered By: David Best on 10-07-2023 Platelet mean volume (Bld) [Entitic vol] 11.7 fL 6.2-12.0 [facility] Determination of erythrocyte mean corpuscular volume (MCV)Ordered By: David Best on 10-07-2023 MCV (RBC) [Entitic vol] 96.7 fL 81-99 [facility] Glucose Glucometer (dC) [M ass/Vol]Ordered By: Alonso Marte on 10-07-2023 Glucose [Mass/Vol] 126 mg/dL 74-106 [facility] Comment on above: MANAGEMENT OF PATIEN T CARE PER NURSING PROTOCOL Hematocrit Auto (Bld) [Volum e fraction]Ordered By: David Best on 10-07-2023 Hematocrit (Bld) [Volume fraction] 37.8 % 37-47 [facility] INR in Blood by Coagulation assayOrdered By: David Best on 10-07-2023 INR Coag (Bld) [Relative time] 1.0 {INR} [facility] Laboratory - Chemistry and C hemistry - challengeOrdered By: David Best on 10-07-2023 CO2 [Moles/Vol] 26.0 mmol/L 21.0-32.0 [facility] Urea nitrogen/Creatinine [Mass ratio] 23.1 mg/mg 10-20 [facility] Laboratory - Chemistry and C hemistry - challengeOrdered By: Jaci Greco on 10-07-2023 Magnesium [Mass/Vol] 2.5 mg/dL 1.6-2.6 [facility] Laboratory - CoagulationOrde red By: David Best on 10-07-2023 aPTT Coag (Bld) [Time] 28.7 s 24.1-36.2 [facility] PT Coag (PPP) [Time] 12.9 s 11.7-14.9 [facility] Laboratory - Hematology and Cell countsOrdered By: David Best on 10-07-2023 Erythrocyte distribution width (RBC) [Entitic vol] 48.8 fL 35.1-43.9 [facility] Erythrocyte distribution width (RBC) [Ratio] 13.6 % 11.6-14.6 [facility] Immature granulocytes/100 WBC (Bld) 0.200 % 0.0-0.9 [facility] Comment on above: IG% - Immature Granu locytes (promyelocytes, myelocytes and metamyelocytes) > 1% indicates that a LEFT SHIFT is Present. MCH (RBC) [Entitic mass] 30.7 pg 27.0-32.0 [facility] Nucleated RBC/100 WBC (Bld) [Ratio] 0 % 0-5 [facility] MCHC Auto (RBC) [Mass/Vol]Or dered By: David Best on 10-07-2023 MCHC (RBC) [Mass/Vol] 31.7 g/dL 32-36 [facility] No Panel InformationOrdered By: David Best on 10-07-2023 Estimated Creatinine Clearance Calc 44.64 ml/min [facility] Estimated GFR (MDRD) Amer 59 mL/min >60 [facility] Comment on above: GFR Calc Estimated GFR (MDRD) Non-Af Amer 49 mL/min >60 [facility] Comment on above: Non- GFR Calc Troponin I High Sensitivity 8 pg/mL 3.0-54.0 [facility] Comment on above: Please Note: New Nasrin t Units and Gender Specific Reference Ranges. For more information see Policy Stat Procedure [place] High Sensitivity Troponin (TNIH) and attachments. Platelets bldOrdered By: Jefferson Best on 10-07-2023 Platelets (Bld) [#/Vol] 153 10*3/uL 150-450 [facility] Serum or plasma calcium loco urement (mass/volume)Ordered By: David Best on 10-07-2023 Calcium [Mass/Vol] 9.2 mg/dL 8.5-10.1 [facility] Serum or plasma creatinine m easurement (mass/volume)Ordered By: David Best on 10-07-2023 Creatinine [Mass/Vol] 1.17 mg/dL 0.55-1.02 [facility] Comment on above: The validity of the calculated GFR & GFRAA in patients over 70 years has not been determined. Clinical correlation is essential. Serum or plasma urea nitroge n measurement (mass/volume)Ordered By: David Best on 10-07-2023 Urea nitrogen [Mass/Vol] 27 mg/dL 7-18 [facility] Thin prep Papanicolaou smear with manual screeningOrdered By: David Best on 10-07-2023 Thin prep Papanicolaou smear with manual screening 6 5-15 [facility] Absolute lymphocyte countOrd ered By: Alonso Estuardo on 10-02-2023 Lymphocytes Auto (Unsp spec) [#/Vol] 2.34 10*3/uL 0.83-4.51 [facility] Basophil percentageOrdered B y: Alonso Marte on 10-02-2023 Basophils/100 WBC (Bld) 0.7 % 0-1 [facility] Chloride [Moles/Vol] 110 mmol/L 98-107 [facility] Eosinophils/100 WBC (Bld) 2.1 % 0-5 [facility] Glucose [Mass/Vol] 154 mg/dL 74-106 [facility] Comment on above: Fasting Glucose resu lt greater than or equal to 126 mg/dL suggests DIABETES MELLITUS per A.D.A. criteria. Neutrophils (Bld) [#/Vol] 2.4 10*3/uL 2.0-7.7 [facility] Neutrophils/100 WBC (Bld) 45.6 % 47-70 [facility] Potassium [Moles/Vol] 3.7 mmol/L 3.5-5.1 [facility] Sodium [Moles/Vol] 140 mmol/L 136-145 [facility] WBC (Bld) [#/Vol] 5.4 10*3/uL 4.4-11.0 [facility] Blood erythrocytes count (nu mber/volume)Ordered By: Alonso Marte on 10-02-2023 RBC (Bld) [#/Vol] 3.88 10*6/uL 4.2-5.4 [facility] Blood hemoglobin measurement (mass/volume)Ordered By: Alonso Marte on 10-02-2023 Hemoglobin (Bld) [Mass/Vol] 11.8 g/dL 12.0-15.0 [facility] Blood lymphocytes/100 leukoc ytesOrdered By: Alonso Marte on 10-02-2023 Lymphocytes/100 WBC (Bld) 43.7 % 19-41 [facility] Blood monocytes/100 leukocyt esOrdered By: Alonso Marte on 10-02-2023 Monocytes/100 WBC (Bld) 7.7 % 0-10 [facility] Blood platelet mean volumeOr dered By: Alonso Marte on 10-02-2023 Platelet mean volume (Bld) [Entitic vol] 11.4 fL 6.2-12.0 [facility] Determination of erythrocyte mean corpuscular volume (MCV)Ordered By: Alonso Marte on 10-02-2023 MCV (RBC) [Entitic vol] 96.6 fL 81-99 [facility] Hematocrit Auto (Bld) [Volum e fraction]Ordered By: Alonso Marte 10-02-2023 Hematocrit (Bld) [Volume fraction] 37.5 % 37-47 [facility] Laboratory - Chemistry and C hemistry - challengeOrdered By: Alonso Marte 10-02-2023 CO2 [Moles/Vol] 28.0 mmol/L 21.0-32.0 [facility] Urea nitrogen/Creatinine [Mass ratio] 17.6 mg/mg 10-20 [facility] Laboratory - Hematology and Cell countsOrdered By: Alonso Marte 10-02-2023 Erythrocyte distribution width (RBC) [Entitic vol] 47.2 fL 35.1-43.9 [facility] Erythrocyte distribution width (RBC) [Ratio] 13.3 % 11.6-14.6 [facility] Immature granulocytes/100 WBC (Bld) 0.200 % 0.0-0.9 [facility] Comment on above: IG% - Immature Granu locytes (promyelocytes, myelocytes and metamyelocytes) > 1% indicates that a LEFT SHIFT is Present. MCH (RBC) [Entitic mass] 30.4 pg 27.0-32.0 [facility] Nucleated RBC/100 WBC (Bld) [Ratio] 0 % 0-5 [facility] MCHC Auto (RBC) [Mass/Vol]Or dered By: Alonso Marte on 10-02-2023 MCHC (RBC) [Mass/Vol] 31.5 g/dL 32-36 [facility] No Panel InformationOrdered By: Alonso Marte on 10-02-2023 Estimated Creatinine Clearance Calc 52.60 ml/min [facility] Estimated GFR (MDRD) Amer 73 mL/min >60 [facility] Comment on above: GFR Calc Estimated GFR (MDRD) Non-Af Amer 61 mL/min >60 [facility] Comment on above: Non- GFR Calc Platelets bldOrdered By: Alonso Marte on 10-02-2023 Platelets (Bld) [#/Vol] 136 10*3/uL 150-450 [facility] Serum or plasma calcium looc urement (mass/volume)Ordered By: Alonso Marte on 10-02-2023 Calcium [Mass/Vol] 9.0 mg/dL 8.5-10.1 [facility] Serum or plasma creatinine m easurement (mass/volume)Ordered By: Alonso Marte on 10-02-2023 Creatinine [Mass/Vol] 0.96 mg/dL 0.55-1.02 [facility] Comment on above: The validity of the calculated GFR & GFRAA in patients over 70 years has not been determined. Clinical correlation is essential. Serum or plasma urea nitroge n measurement (mass/volume)Ordered By: Alonso Marte on 10-02-2023 Urea nitrogen [Mass/Vol] 17 mg/dL 7-18 [facility] Thin prep Papanicolaou smear with manual screeningOrdered By: Alonso Marte 10-02-2023 Thin prep Papanicolaou smear with manual screening 2 5-15 [facility] Glucose Glucometer (BldC) [M ass/Vol]Ordered By: Ben Johnson on 10-01-2023 Glucose [Mass/Vol] 182 mg/dL 74-106 [facility] Comment on above: MANAGEMENT OF PATIEN T CARE PER NURSING PROTOCOL Basophil percentageOrdered B y: Tony Mejia on 09-29-2023 Cholesterol [Mass/Vol] 106 mg/dL <200 [facility] Comment on above: <200 mg/dL Desirable 200-240 mg/dL Borderline >240 mg/dL High Risk Triglyceride [Mass/Vol] 145 mg/dL <199 [facility] Comment on above: The drugs N-Acetylcy steine and Metamizole may falsely depress this assay.Serum Triglycerides Reference Interval Normal <150 mg/dL Borderline high 150 - 199 mg/dL High 200 - 499 mg/dL Very High > or = 500 mg/dL Serum or plasma cholesterol in HDL measurement (mass/volume)Ordered By: Tony Mejia on 09-29-2023 Cholesterol in HDL [Mass/Vol] 41 mg/dL >40 [facility] Comment on above: The drugs N-Acetylcy steine and Metamizole may falsely depress this assay. Reference Range HDL <40 mg/dL Low HDL Cholesterol HDL >or= 60 mg/dL High HDL Cholesterol Serum or plasma cholesterol in VLDL measurement (mass/volume)Ordered By: Tony Mejia on 09-29-2023 Cholesterol in VLDL [Mass/Vol] 29 mg/dL 5-40 [facility] Serum or plasma low density lipoprotein (LDL) cholesterol measurement (mass/volume)Ordered By: Tony Mejia on 09-29-2023 Cholesterol in LDL [Mass/Vol] 36 mg/dL 0-130 [facility] Absolute lymphocyte countOrd ered By: Uday Orosco on 09-28-2023 Lymphocytes Auto (Unsp spec) [#/Vol] 3.61 10*3/uL 0.83-4.51 [facility] Basophil percentageOrdered B y: Uday Orosco on 09-28-2023 Basophil percentage 0 SEEN /hpf 0-5 [facility] Basophils/100 WBC (Bld) 0.6 % 0-1 [facility] Chloride [Moles/Vol] 106 mmol/L 98-107 [facility] Eosinophils/100 WBC (Bld) 1.0 % 0-5 [facility] Glucose [Mass/Vol] 159 mg/dL 74-106 [facility] Comment on above: Fasting Glucose resu lt greater than or equal to 126 mg/dL suggests DIABETES MELLITUS per A.D.A. criteria. Neutrophils (Bld) [#/Vol] 3.0 10*3/uL 2.0-7.7 [facility] Neutrophils/100 WBC (Bld) 40.8 % 47-70 [facility] Potassium [Moles/Vol] 3.9 mmol/L 3.5-5.1 [facility] Sodium [Moles/Vol] 140 mmol/L 136-145 [facility] WBC (Bld) [#/Vol] 7.3 10*3/uL 4.4-11.0 [facility] Bilirubin Test strip Ql (U)O rdered By: Uday Orosco on 09-28-2023 Bilirubin Ql (U) Negative Negative [facility] Blood erythrocytes count (nu mber/volume)Ordered By: Uday Orosco on 09-28-2023 RBC (Bld) [#/Vol] 4.14 10*6/uL 4.2-5.4 [facility] Blood hemoglobin measurement (mass/volume)Ordered By: Uday Orosco on 09-28-2023 Hemoglobin (Bld) [Mass/Vol] 12.5 g/dL 12.0-15.0 [facility] Blood lymphocytes/100 leukoc ytesOrdered By: Uday Orosco on 09-28-2023 Lymphocytes/100 WBC (Bld) 49.7 % 19-41 [facility] Blood monocytes/100 leukocyt esOrdered By: Uday Orosco on 09-28-2023 Monocytes/100 WBC (Bld) 7.6 % 0-10 [facility] Blood platelet mean volumeOr dered By: Uday Orosco on 09-28-2023 Platelet mean volume (Bld) [Entitic vol] 11.1 fL 6.2-12.0 [facility] Determination of erythrocyte mean corpuscular volume (MCV)Ordered By: Uday Orosco on 09-28-2023 MCV (RBC) [Entitic vol] 95.7 fL 81-99 [facility] Hematocrit Auto (Bld) [Volum e fraction]Ordered By: Uday Orosco on 09-28-2023 Hematocrit (Bld) [Volume fraction] 39.6 % 37-47 [facility] INR in Blood by Coagulation assayOrdered By: Uday Orosco on 09-28-2023 INR Coag (Bld) [Relative time] 1.0 {INR} [facility] Ketones Test strip Ql (U)Ord ered By: Uday Orosco on 09-28-2023 Ketones Ql (U) Negative Negative [facility] Laboratory - Chemistry and C hemistry - challengeOrdered By: Uday Orosco on 09-28-2023 CO2 [Moles/Vol] 28.0 mmol/L 21.0-32.0 [facility] Urea nitrogen/Creatinine [Mass ratio] 24.5 mg/mg 10-20 [facility] Laboratory - CoagulationOrde red By: Uday Orosco on 09-28-2023 aPTT Coag (Bld) [Time] 24.8 s 24.1-36.2 [facility] PT Coag (PPP) [Time] 12.7 s 11.7-14.9 [facility] Laboratory - Hematology and Cell countsOrdered By: Uday Orosco on 09-28-2023 Erythrocyte distribution width (RBC) [Entitic vol] 47.4 fL 35.1-43.9 [facility] Erythrocyte distribution width (RBC) [Ratio] 13.3 % 11.6-14.6 [facility] Immature granulocytes/100 WBC (Bld) 0.300 % 0.0-0.9 [facility] Comment on above: IG% - Immature Granu locytes (promyelocytes, myelocytes and metamyelocytes) > 1% indicates that a LEFT SHIFT is Present. MCH (RBC) [Entitic mass] 30.2 pg 27.0-32.0 [facility] Nucleated RBC/100 WBC (Bld) [Ratio] 0 % 0-5 [facility] MCHC Auto (RBC) [Mass/Vol]Or dered By: Uday Orosco on 09-28-2023 MCHC (RBC) [Mass/Vol] 31.6 g/dL 32-36 [facility] Mucus LM Ql (Urine sed)Order ed By: Uday Orosco on 09-28-2023 Mucus Ql (Urine sed) 0 SEEN /hpf [facility] Nitrite Test strip Ql (U)Ord ered By: Uday Orosco on 09-28-2023 Nitrite Ql (U) Negative Negative [facility] No Panel InformationOrdered By: Uday Orosco on 09-28-2023 Estimated Creatinine Clearance Calc 46.28 ml/min [facility] Estimated GFR (MDRD) Amer 63 mL/min >60 [facility] Comment on above: GFR Calc Estimated GFR (MDRD) Non-Af Amer 52 mL/min >60 [facility] Comment on above: Non- GFR Calc Troponin I High Sensitivity 7 pg/mL 3.0-54.0 [facility] Comment on above: Please Note: New Nasrin t Units and Gender Specific Reference Ranges. For more information see Policy Stat Procedure [place] High Sensitivity Troponin (TNIH) and attachments. No Panel InformationOrdered By: Tony Mejia on 09-28-2023 Thyroid Stimulating Hormone (TSH) 2.94 uIU/mL 0.358-3.74 [facility] Platelets bldOrdered By: Chad Orosco on 09-28-2023 Platelets (Bld) [#/Vol] 157 10*3/uL 150-450 [facility] Protein Test strip Ql (U)Ord ered By: Uday Orosco on 09-28-2023 Protein Ql (U) Negative Negative [facility] Serum or plasma calcium loco urement (mass/volume)Ordered By: Uday Orosco on 09-28-2023 Calcium [Mass/Vol] 9.7 mg/dL 8.5-10.1 [facility] Serum or plasma creatinine m easurement (mass/volume)Ordered By: Uday Orosco on 09-28-2023 Creatinine [Mass/Vol] 1.10 mg/dL 0.55-1.02 [facility] Comment on above: The validity of the calculated GFR & GFRAA in patients over 70 years has not been determined. Clinical correlation is essential. Serum or plasma urea nitroge n measurement (mass/volume)Ordered By: Uday Orosco on 09-28-2023 Urea nitrogen [Mass/Vol] 27 mg/dL 7-18 [facility] Squamous epithelial cells de tection in urine sediment by light microscopyOrdered By: Uday Orosco on 09-28-2023 Epithelial cells.squamous LM Ql (Urine sed) 0 SEEN /hpf 5-10 [facility] Thin prep Papanicolaou smear with manual screeningOrdered By: Uday Orosco on 09-28-2023 Thin prep Papanicolaou smear with manual screening 6 5-15 [facility] Urine blood detectionOrdered By: Uday Orosco on 09-28-2023 RBC Ql (U) Negative Negative [facility] RBC Ql (U) 0 SEEN /hpf 0-5 [facility] Urine clarityOrdered By: Chad Orosco on 09-28-2023 Clarity (U) Clear Clear [facility] Urine color determinationOrd ered By: Uday Orosco on 09-28-2023 Color (U) Yellow Yellow [facility] Urine glucose detectionOrder ed By: Uday Orosco on 09-28-2023 Glucose Ql (U) 1000 mg/dl Normal [facility] Urine leukocyte esterase det ection by dipstickOrdered By: Uday Orosco on 09-28-2023 Leukocyte esterase Test strip Ql (U) 25 /ul Negative [facility] Urine pHOrdered By: Uday cai on 09-28-2023 pH (U) 8.0 [pH] 5.0 - 8.0 [facility] Urine sediment bacteria coun t by microscopy (number/high power field)Ordered By: Uday Orosco on 09-28-2023 Bacteria LM.HPF (Urine sed) [#/Area] 0 /[HPF] None Seen [facility] Urine specific gravity measu rementOrdered By: Uday Orosco on 09-28-2023 Specific gravity (U) [Rel density] 1.010 1.002-1.03 0 [facility] Urobilinogen Auto test strip Ql (U)Ordered By: Uday Orosco on 09-28-2023 Urobilinogen Ql (U) Normal mg/dl Normal [facility] .GFRon 09-07-2023 GFR 47 ml/min/1.73sqm Normal [facility] ([place]) Comment on above: Result Comment: GFR Population mean for , Non- Americans Ages 20-29 = 116 mL/min/1.73 sq.m. Ages 30-39 = 107 mL/min/1.73 sq.m. Ages 40-49 = 99 mL/min/1.73 sq.m. Ages 50-59 = 93 mL/min/1.73 sq.m. Ages 60-69 = 85 mL/min/1.73 sq.m. Ages 70+ = 75 mL/min/1.73 sq.m. Chronic Kidney Disease: Less than 60 mL/min/1.73 square meters End Stage Renal Disease: Less than 15 mL/min/1.73 square meters Performed By: #### Reginaldo SKELTON, CRE ####[address] [place], [place] [address] GFR Non- 39 ml/min/1.73sqm Normal [facility] ([place]) Comment on above: Result Comment: GFR Population mean for , Non- Americans Ages 20-29 = 116 mL/min/1.73 sq.m. Ages 30-39 = 107 mL/min/1.73 sq.m. Ages 40-49 = 99 mL/min/1.73 sq.m. Ages 50-59 = 93 mL/min/1.73 sq.m. Ages 60-69 = 85 mL/min/1.73 sq.m. Ages 70+ = 75 mL/min/1.73 sq.m. Chronic Kidney Disease: Less than 60 mL/min/1.73 square meters End Stage Renal Disease: Less than 15 mL/min/1.73 square meters Performed By: #### Reginaldo SKELTON, CRE ####[address] [place], [place] [address] CREon 09-07-2023 Creatinine [Mass/Vol] 1.35 mg/dL High 0.55-1.02 [facility] ([place]) Comment on above: Performed By: #### Reginaldo SKELTON, CRE ####[address] [place], [place] [address] CT ABD/PELVIS W/ IV CONTRAST ONLYon 09-07-2023 CT ABD/PELVIS W/ IV CONTRAST ONLY ORIGINAL EXAMINATION: CT OF THE ABDOMEN AND PELVIS WITH CONTRAST 09/07/2023 9:52 am TECHNIQUE: CT of the abdomen and pelvis was performed with the administration of intravenous contrast. Multiplanar reformatted images are provided for review. Automated exposure control, iterative reconstruction, and/or weight based adjustment of the mA/kV was utilized to reduce the radiation dose to as low as reasonably achievable. COMPARISON: February 18, 2018 HISTORY: ORDERING SYSTEM PROVIDED HISTORY: Reason for Exam: left lower quadrant pain FINDINGS: Minor degenerative changes are noted in the spine, greatest inferiorly. No other osseous abnormality identified. Scattered emphysematous airspaces are present at the lung bases with minimal regions of scarring. Liver, spleen, adrenal glands and pancreas are unremarkable. A prominent left midpole renal cyst is present. No other kidney finding. No adenopathy, free air or free fluid seen. The urinary bladder and solid pelvic organs are grossly normal. Mild sigmoid and distal left colon diverticulosis is present, without evidence for diverticulitis. Minor scattered noninflamed diverticula are noted elsewhere as well. No other GI tract abnormality is visible. The appendix is normal. No additional contributory finding. IMPRESSION: No acute abnormality identified. Diverticulosis without diverticulitis. Interpreted by: Adrienne Chanel MD Preliminary Report By: Adrienne Chanel MD Electronically signed By Adrienne Chanel MD Dictated Date: 09/07/2023 10:03:27 AM Prelim Date: 09/07/2023 10:17:27 AM Sign Date: 09/07/2023 10:17:27 AM Ordering Provider: ADRIENNE BYERS [facility] ([place]) LABORATORYOrdered By: SYSTEM SYSTEM on 09-07-2023 Creatinine [Mass/Vol] 1.35 mg/dL Invalid Interpretation Code 0.55 - 1.02 mg/dL AO ADM SS GFR/1.73 sq M.predicted among blacks MDRD (S/P/Bld) [Vol rate/Area] 47 ml/min/1.73sqm Invalid Interpretation Code AO Chemistry S Comment on above: Interpretive Data: GFR Population mean for , Non- Americans Ages 20-29 = 116 mL/min/1.73 sq.m. Ages 30-39 = 107 mL/min/1.73 sq.m. Ages 40-49 = 99 mL/min/1.73 sq.m. Ages 50-59 = 93 mL/min/1.73 sq.m. Ages 60-69 = 85 mL/min/1.73 sq.m. Ages 70+ = 75 mL/min/1.73 sq.m. Chronic Kidney Disease: Less than 60 mL/min/1.73 square meters End Stage Renal Disease: Less than 15 mL/min/1.73 square meters GFR/1.73 sq M.predicted among non-blacks MDRD (S/P/Bld) [Vol rate/Area] 39 ml/min/1.73sqm Invalid Interpretation Code AO Chemistry S Comment on above: Interpretive Data: GFR Population mean for , Non- Americans Ages 20-29 = 116 mL/min/1.73 sq.m. Ages 30-39 = 107 mL/min/1.73 sq.m. Ages 40-49 = 99 mL/min/1.73 sq.m. Ages 50-59 = 93 mL/min/1.73 sq.m. Ages 60-69 = 85 mL/min/1.73 sq.m. Ages 70+ = 75 mL/min/1.73 sq.m. Chronic Kidney Disease: Less than 60 mL/min/1.73 square meters End Stage Renal Disease: Less than 15 mL/min/1.73 square meters XR ABDOMEN 2 VIEWS W/ OBLIQU Gregor 09-01-2023 XR ABDOMEN 2 VIEWS W/ OBLIQUE ORIGINAL EXAMINATION: TWO XRAY VIEWS OF THE ABDOMEN 08/26/2023 2:18 pm COMPARISON: November 22, 2021 HISTORY: ORDERING SYSTEM PROVIDED HISTORY: Reason for Exam: rule out nephrolithiasis FINDINGS: Vascular calcification is evident. No nephrolithiasis or ureteral stone is visible. There is a calcification in the pelvis on the right which could represent a phlebolith. This is of uncertain significance. Gas pattern is normal. IMPRESSION: No definitive urinary tract calcifications seen. Interpreted by: Adrienne Chanel MD Preliminary Report By: Adrienne Chanel MD Electronically signed By Adrienne Chanel MD Dictated Date: 09/01/2023 8:22:49 AM Prelim Date: 09/01/2023 8:23:28 AM Sign Date: 09/01/2023 8:23:28 AM Ordering Provider: ADRIENNE Bassett [facility] ([place]) ANCAon 07-19-2023 C-ANCA 1.1 Normal 0.0-20.0 [facility] ([place]) Comment on above: Result Comment: NEW REFERENCE RANGES FOR ANCA BY EIA: NEGATIVE <= 20 UNITS WEAK POSITIVE 21 - 30 UNITS MOD. TO STRONG POSITIVE > 30 UNITS A positive result indicates the presence of ND-3 antibodies and suggests the possibility of certain autoimmune vasculitides such as Naida?s granulomatosis. A negative result indicates no ND-3 antibody or levels below the negative cut-off of the assay. These results were obtained with the [employer] QUANTA Lite ND-3 IgG EDNA. ND-3 values obtained with different manufacturers? assay methods may not be used interchangeably. The magnitude of the reported IgG level cannot be correlated to an endpoint titer. Results of this assay should be used in conjunction with clinical findings. Performed By: #### L IPID, FERR, GFR, ANEU, CBC, TSH, CMP, ADIFF, A1C, VIDH #### [address] [address] Cytoplasmic Neutro. Ab. See Below Normal [facility] ([place]) Comment on above: Performed By: #### L IPID, FERR, GFR, ANEU, CBC, TSH, CMP, ADIFF, A1C, VIDH #### [address] [address] P-ANCA 10.8 Normal 0.0-20.0 [facility] ([place]) Comment on above: Result Comment: REFE RENCE RANGES FOR ANCA BY EIA: NEGATIVE <= 20 UNITS WEAK POSITIVE 21 - 30 UNITS MOD. TO STRONG POSITIVE > 30 UNITS A positive result indicates the presence of MPO antibodies and suggests the possibility of certain autoimmune vasculitides such as microscopic polyarteritis, and crescentic glomerulonephritis. A negative result indicates no MPO antibody or levels below the negative cut-off of the assay. These results were obtained with the [employer] QUANTA Lite MPO IgG EDNA. MPO values obtained with different manufacturers? assay methods may not be used interchangeably. The magnitude of the reported IgG level cannot be correlated to an endpoint titer. Results of this assay should be used in conjunction with clinical findings. Performed By: #### L IPID, FERR, GFR, ANEU, CBC, TSH, CMP, ADIFF, A1C, VIDH #### [address] [address] RFon 07-15-2023 Rheumatoid Factor <6.0 Normal <=5.9 [facility] ([place]) Comment on above: Result Comment: RF I gM Antibody by Enzyme Immunoassay: Negative < or = 6 Positive > 6 A positive result indicates the presence of RF antibodies and suggests the possibility of rheumatoid arthritis. A negative result indicates no RF IgM antibody or levels below the negative cut-off of the assay. Results of this assay should be used in conjunction with clinical findings and other serological tests. These results were obtained with the [employer] QUANTA Lite RF IgM EDNA. RF IgM values obtained with different manufacturers' assay methods may not be used interchangeably. The magnitude of the reported IgM levels cannot be correlated to an endpoint titer. Performed By: #### C RE, GFR #### [address] [address] ANAon 07-14-2023 Nuclear Ab IF (S) [Titer] 40 {titer} Normal Neg 40 [facility] ([place]) Comment on above: Result Comment: AZALEA Screen and Titer methodology is an immunofluorescent technique utilizing Hep2 Substrate. Performed By: #### C RE, GFR #### [address] [address] .Auto Diffon 07-13-2023 Basophil, Absolute 0.0 10 3/mcL Normal 0.0-0.2 [facility] ([place]) Comment on above: Performed By: #### C RE, GFR #### [address] [address] Basophils/100 WBC (Bld) 0.3 % Normal 0.0-2.5 [facility] ([place]) Comment on above: Performed By: #### C RE, GFR #### [address] [address] Eosinophil, Absolute 0.1 10 3/mcL Normal 0.0-0.4 [facility] ([place]) Comment on above: Performed By: #### C RE, GFR #### [address] [address] Eosinophils/100 WBC (Bld) 1.1 % Normal 0.0-7.0 [facility] ([place]) Comment on above: Performed By: #### C RE, GFR #### [address] [address] Lymphocyte, Absolute 2.2 10 3/mcL Normal 0.8-3.9 [facility] ([place]) Comment on above: Performed By: #### C RE, GFR #### [address] [address] Lymphocytes/100 WBC (Bld) 28.8 % Normal 10.0-50.0 [facility] ([place] Comment on above: Performed By: #### C RE, GFR #### [address] [address] Monocyte, Absolute 0.5 10 3/mcL Normal 0.2-1.0 [facility] ([place] Comment on above: Performed By: #### C RE, GFR #### [address] [address] Monocytes/100 WBC (Bld) 7.0 % Normal 1.7-13.0 [facility] ([place]) Comment on above: Performed By: #### C RE, GFR #### [address] [address] Neutrophils/100 WBC (Bld) 62.8 % Normal 37.0-80.0 [facility] ([place] Comment on above: Performed By: #### C RE, GFR #### [address] [address] .GFRon 07-13-2023 GFR Non- 37 ml/min/1.73sqm Normal [facility] ([place] Comment on above: Result Comment: GFR Population mean for , Non- Americans Ages 20-29 = 116 mL/min/1.73 sq.m. Ages 30-39 = 107 mL/min/1.73 sq.m. Ages 40-49 = 99 mL/min/1.73 sq.m. Ages 50-59 = 93 mL/min/1.73 sq.m. Ages 60-69 = 85 mL/min/1.73 sq.m. Ages 70+ = 75 mL/min/1.73 sq.m. Chronic Kidney Disease: Less than 60 mL/min/1.73 square meters End Stage Renal Disease: Less than 15 mL/min/1.73 square meters Performed By: #### C RE, GFR #### [address] [address] GFR 45 ml/min/1.73sqm Normal [facility] ([place] Comment on above: Result Comment: GFR Population mean for , Non- Americans Ages 20-29 = 116 mL/min/1.73 sq.m. Ages 30-39 = 107 mL/min/1.73 sq.m. Ages 40-49 = 99 mL/min/1.73 sq.m. Ages 50-59 = 93 mL/min/1.73 sq.m. Ages 60-69 = 85 mL/min/1.73 sq.m. Ages 70+ = 75 mL/min/1.73 sq.m. Chronic Kidney Disease: Less than 60 mL/min/1.73 square meters End Stage Renal Disease: Less than 15 mL/min/1.73 square meters Performed By: #### C RE, GFR #### [address] [address] .NEUABSon 07-13-2023 Neutrophil, Absolute 4.8 10 3/mcL Normal 2.9-6.2 [facility] ([place]) Comment on above: Performed By: #### C RE, GFR #### [address] [address] B12on 07-13-2023 Cobalamin (Vitamin B12) [Mass/Vol] 1078 pg/mL High 211-911 [facility] ([place]) Comment on above: Performed By: #### C RE, GFR #### [address] [address] CBCon 07-13-2023 Erythrocyte distribution width (RBC) [Ratio] 14.5 % Normal 11.5-14.5 [facility] ([place]) Comment on above: Performed By: #### C RE, GFR #### [address] [address] Hematocrit (Bld) [Volume fraction] 37.6 % Normal 37.0-47.0 [facility] ([place] Comment on above: Performed By: #### C RE, GFR #### [address] [address] Hgb 12.5 G/dL Normal 12.0-16.0 [facility] ([place] Comment on above: Performed By: #### C RE, GFR #### [address] [address] MCH (RBC) [Entitic mass] 30.0 pg Normal 27.0-31.2 [facility] ([place] Comment on above: Performed By: #### C RE, GFR #### [address] [address] MCHC 33.2 G/dL Normal 33.0-37.0 [facility] ([place] Comment on above: Performed By: #### C RE, GFR #### [address] [address] MCV (RBC) [Entitic vol] 90.4 fL Normal 80.0-94.0 [facility] ([place] Comment on above: Performed By: #### C RE, GFR #### [address] [address] Platelet 181 10 3/mcL Normal 130-400 [facility] ([place] Comment on above: Performed By: #### C RE, GFR #### [address] [address] Platelet mean volume (Bld) [Entitic vol] 8.9 fL Normal 7.4-10.4 [facility] ([place] Comment on above: Performed By: #### C RE, GFR #### [address] [address] RBC 4.16 10 6/mcL Low 4.20-5.40 [facility] ([place] Comment on above: Performed By: #### C RE, GFR #### [address] [address] WBC 7.7 10 3/mcL Normal 4.6-10.8 [facility] ([place] Comment on above: Performed By: #### C RE, GFR #### [address] [address] CKon 07-13-2023 CK [Catalytic activity/Vol] 36 U/L Normal 26-192 [facility] ([place] Comment on above: Performed By: #### C RE, GFR #### [address] [address] CMPon 07-13-2023 Albumin Level 3.7 G/dL Normal 3.4-4.8 [facility] ([place] Comment on above: Performed By: #### C RE, GFR #### [address] [address] Albumin/Globulin [Mass ratio] 1.0 {ratio} Low 1.1-2.5 [facility] ([place] Comment on above: Performed By: #### C RE, GFR #### [address] [address] ALP [Catalytic activity/Vol] 76 U/L Normal 40-135 [facility] ([place] Comment on above: Performed By: #### C RE, GFR #### [address] [address] ALT [Catalytic activity/Vol] 17 U/L Normal 14-59 [facility] ([place] Comment on above: Performed By: #### C RE, GFR #### [address] [address] AST [Catalytic activity/Vol] 15 U/L Normal 10-40 [facility] ([place] Comment on above: Performed By: #### C RE, GFR #### [address] [address] Bili Total 0.3 mg/dL Normal 0.2-1.0 [facility] ([place] Comment on above: Result Comment: Use of this assay is not recommended for patients undergoing treatment with eltrombopag due to the potential for falsely elevated results. Performed By: #### C RE, GFR #### [address] [address] BUN/Creatinine Ratio 20 ratio Normal 7-27 [facility] ([place] Comment on above: Performed By: #### C RE, GFR #### [address] [address] Calcium [Mass/Vol] 8.9 mg/dL Normal 8.4-10.2 [facility] ([place]) Comment on above: Performed By: #### C RE, GFR #### [address] [address] Chloride [Moles/Vol] 104 mmol/L Normal 98-107 [facility] ([place] Comment on above: Performed By: #### C RE, GFR #### [address] [address] CO2 [Moles/Vol] 30 mmol/L Normal 23-31 [facility] ([place] Comment on above: Performed By: #### C RE, GFR #### [address] [address] Creatinine [Mass/Vol] 1.40 mg/dL High 0.55-1.02 [facility] ([place]) Comment on above: Performed By: #### C RE, GFR #### [address] [address] Electrolyte Balance 11.0 mEq/L Normal 4.0-15.0 [facility] ([place]) Comment on above: Performed By: #### C RE, GFR #### [address] [address] Globulin 3.6 G/dL Normal [facility] ([place] Comment on above: Performed By: #### C RE, GFR #### [address] [address] Glucose [Mass/Vol] 205 mg/dL High 83-110 [facility] ([place] Comment on above: Performed By: #### C RE, GFR #### [address] [address] Potassium [Moles/Vol] 4.6 mmol/L Normal 3.5-5.1 [facility] ([place]) Comment on above: Performed By: #### C RE, GFR #### [address] [address] Sodium [Moles/Vol] 145 mmol/L Normal 136-145 [facility] ([place] Comment on above: Performed By: #### C RE, GFR #### [address] [address] Total Protein 7.3 G/dL Normal 6.4-8.2 [facility] ([place] Comment on above: Performed By: #### C RE, GFR #### [address] [address] Urea nitrogen [Mass/Vol] 28 mg/dL High 7-18 [facility] ([place] Comment on above: Performed By: #### C RE, GFR #### [address] [address] CRPon 07-13-2023 C-Reactive Protein 2.1 mg/dL High 0.0-0.3 [facility] ([place]) Comment on above: Performed By: #### C RE, GFR #### [address] [address] ESRon 07-13-2023 Erythrocyte Sed Rate 27 mm/hr Normal 0-30 [facility] ([place] Comment on above: Performed By: #### C RE, GFR #### [address] [address] FOLon 07-13-2023 Folate >48.00 High 5.38-24.00 [facility] ([place]) Comment on above: Performed By: #### C RE, GFR #### [address] [address] FT4on 07-13-2023 Free T4 [Mass/Vol] 0.97 ng/dL Normal 0.76-1.46 [facility] ([place]) Comment on above: Performed By: #### C RE, GFR #### [address] [address] LIPIDon 07-13-2023 Cholesterol [Mass/Vol] 115 mg/dL Normal 0-200 [facility] ([place]) Comment on above: Result Comment: Chol esterol Reference Interval: Less than 200 Desirable 200-239 Borderline high risk 240 and above High risk Performed By: #### C RE, GFR #### [address] [address] Cholesterol in HDL [Mass/Vol] 42 mg/dL Normal 40-60 [facility] ([place]) Comment on above: Performed By: #### C RE, GFR #### [address] [address] Cholesterol in LDL [Mass/Vol] 49 mg/dL Normal 0-130 [facility] ([place]) Comment on above: Performed By: #### C RE, GFR #### [address] [address] Triglyceride [Mass/Vol] 120 mg/dL Normal 0-150 [facility] ([place]) Comment on above: Result Comment: Trig lyceride Reference Interval: Less than 150 Normal 150-199 Borderline high risk 200-499 High risk 500 or higher Very high risk Performed By: #### C RE, GFR #### [address] [address] PTHon 07-13-2023 PTH, Intact 60.7 pg/mL Normal 18.5-88.0 [facility] ([place]) Comment on above: Performed By: #### C RE, GFR #### [address] [address] TSHon 07-13-2023 TSH Qn 1.67 m[IU]/L Normal 0.36-3.74 [facility] ([place]) Comment on above: Performed By: #### C RE, GFR #### [address] [address] VIDHon 07-13-2023 Vit. D 25-Hydroxy 54.1 ng/mL Normal [facility] ([place]) Comment on above: Result Comment: Inte rpretive Values Based on Total 25(OH) Vitamin D: Deficient <20 ng/mL Insufficient 20 - <30 ng/mL Sufficient 30-100 ng/mL Performed By: #### C RE, GFR #### [address] [address] .GFRon 06-09-2023 GFR 44 ml/min/1.73sqm Normal [facility] ([place]) Comment on above: Result Comment: GFR Population mean for , Non- Americans Ages 20-29 = 116 mL/min/1.73 sq.m. Ages 30-39 = 107 mL/min/1.73 sq.m. Ages 40-49 = 99 mL/min/1.73 sq.m. Ages 50-59 = 93 mL/min/1.73 sq.m. Ages 60-69 = 85 mL/min/1.73 sq.m. Ages 70+ = 75 mL/min/1.73 sq.m. Chronic Kidney Disease: Less than 60 mL/min/1.73 square meters End Stage Renal Disease: Less than 15 mL/min/1.73 square meters Performed By: #### G AUGUSTO SKELTON, BMP ####[address] [place], [place] [address] GFR Non- 37 ml/min/1.73sqm Normal [facility] ([place]) Comment on above: Result Comment: GFR Population mean for , Non- Americans Ages 20-29 = 116 mL/min/1.73 sq.m. Ages 30-39 = 107 mL/min/1.73 sq.m. Ages 40-49 = 99 mL/min/1.73 sq.m. Ages 50-59 = 93 mL/min/1.73 sq.m. Ages 60-69 = 85 mL/min/1.73 sq.m. Ages 70+ = 75 mL/min/1.73 sq.m. Chronic Kidney Disease: Less than 60 mL/min/1.73 square meters End Stage Renal Disease: Less than 15 mL/min/1.73 square meters Performed By: #### G AUGUSTO SKELTON, BMP ####[address] [place], [place] [address] BMPon 06-09-2023 BUN/Creatinine Ratio 23 ratio Normal 7-27 [facility] ([place]) Comment on above: Performed By: #### G , PBAUGUST, BMP ####[address] [place], [place] [address] Calcium [Mass/Vol] 9.3 mg/dL Normal 8.4-10.2 [facility] ([place]) Comment on above: Performed By: #### AUGUSTO OLSEN BMP ####[address] [place], [place] [address] Chloride [Moles/Vol] 102 mmol/L Normal 98-107 [facility] ([place]) Comment on above: Performed By: #### AUGUSTO OLSEN BMP ####[address] [place], [place] [address] CO2 [Moles/Vol] 28 mmol/L Normal 23-31 [facility] ([place]) Comment on above: Performed By: #### AUGUSTO OLSEN BMP ####[address] [place], [place] [address] Creatinine [Mass/Vol] 1.42 mg/dL High 0.55-1.02 [facility] ([place]) Comment on above: Performed By: #### AUGUSTO OLSEN BMP ####[address] [place], [place] [address] Electrolyte Balance 10.0 mEq/L Normal 4.0-15.0 [facility] ([place]) Comment on above: Performed By: #### AUGUSTO OLSEN BMP ####[address] [place], [place] [address] Glucose [Mass/Vol] 239 mg/dL High 83-110 [facility] ([place]) Comment on above: Performed By: #### AUGUSTO OLSEN BMP ####[address] [place], [place] [address] Potassium [Moles/Vol] 4.3 mmol/L Normal 3.5-5.1 [facility] ([place]) Comment on above: Performed By: #### AUGUSTO OLSEN BMP ####[address] [place], [place] [address] Sodium [Moles/Vol] 140 mmol/L Normal 136-145 [facility] ([place]) Comment on above: Performed By: #### AUGUSTO OLSEN, BMP ####[address] [place], [place] [address] Urea nitrogen [Mass/Vol] 33 mg/dL High 7-18 [facility] ([place]) Comment on above: Performed By: #### G AUGUSTO SKELTON, BMP ####[address] [place], [place] [address] LABORATORYOrdered By: SYSTEM SYSTEM on 06-09-2023 Calcium [Mass/Vol] 9.3 mg/dL Invalid Interpretation Code 8.4 - 10.2 mg/dL AO ADM SS Chloride [Moles/Vol] 102 mmol/L Invalid Interpretation Code 98 - 107 mmol/L AO ADM SS CO2 [Moles/Vol] 28 mmol/L Invalid Interpretation Code 23 - 31 mmol/L AO ADM SS Creatinine [Mass/Vol] 1.42 mg/dL Invalid Interpretation Code 0.55 - 1.02 mg/dL AO ADM SS Electrolyte Balance 10.0 mEq/L Invalid Interpretation Code 4.0 - 15.0 mEq/L AO ADM SS GFR/1.73 sq M.predicted among blacks MDRD (S/P/Bld) [Vol rate/Area] 44 ml/min/1.73sqm Invalid Interpretation Code AO Chemistry S Comment on above: Interpretive Data: GFR Population mean for , Non- Americans Ages 20-29 = 116 mL/min/1.73 sq.m. Ages 30-39 = 107 mL/min/1.73 sq.m. Ages 40-49 = 99 mL/min/1.73 sq.m. Ages 50-59 = 93 mL/min/1.73 sq.m. Ages 60-69 = 85 mL/min/1.73 sq.m. Ages 70+ = 75 mL/min/1.73 sq.m. Chronic Kidney Disease: Less than 60 mL/min/1.73 square meters End Stage Renal Disease: Less than 15 mL/min/1.73 square meters GFR/1.73 sq M.predicted among non-blacks MDRD (S/P/Bld) [Vol rate/Area] 37 ml/min/1.73sqm Invalid Interpretation Code AO Chemistry S Comment on above: Interpretive Data: GFR Population mean for , Non- Americans Ages 20-29 = 116 mL/min/1.73 sq.m. Ages 30-39 = 107 mL/min/1.73 sq.m. Ages 40-49 = 99 mL/min/1.73 sq.m. Ages 50-59 = 93 mL/min/1.73 sq.m. Ages 60-69 = 85 mL/min/1.73 sq.m. Ages 70+ = 75 mL/min/1.73 sq.m. Chronic Kidney Disease: Less than 60 mL/min/1.73 square meters End Stage Renal Disease: Less than 15 mL/min/1.73 square meters Glucose [Mass/Vol] 239 mg/dL Invalid Interpretation Code 83 - 110 mg/dL AO ADM SS Natriuretic peptide.B prohormone N-Terminal [Mass/Vol] 588 pg/mL Invalid Interpretation Code 0 - 125 pg/mL AO ADM SS Comment on above: Interpretive Data: N T-proBNP results of less than 300 pg/mL effectively rules out acute congestive heart failure with 99% negative predictive value. Potassium [Moles/Vol] 4.3 mmol/L Invalid Interpretation Code 3.5 - 5.1 mmol/L AO ADM SS Sodium [Moles/Vol] 140 mmol/L Invalid Interpretation Code 136 - 145 mmol/L AO ADM SS Urea nitrogen [Mass/Vol] 33 mg/dL Invalid Interpretation Code 7 - 18 mg/dL AO ADM SS Urea nitrogen/Creatinine [Mass ratio] 23 ratio Invalid Interpretation Code 7 - 27 ratio AO ADM SS PBNPon 06-09-2023 Natriuretic peptide B (Bld) [Mass/Vol] 588 pg/mL High 0-125 [facility] ([place]) Comment on above: Result Comment: NT-p roBNP results of less than 300 pg/mL effectively rules out acute congestive heart failure with 99% negative predictive value. Performed By: #### G FR, PBNP, BMP ####[address] [place] [address] LABORATORYOrdered By: SYSTEM SYSTEM on 12-10-2022 Calcium [Mass/Vol] 8.7 mg/dL Invalid Interpretation Code 8.4 - 10.2 mg/dL AO ADM SS Chloride [Moles/Vol] 106 mmol/L Invalid Interpretation Code 98 - 107 mmol/L AO ADM SS CO2 [Moles/Vol] 29 mmol/L Invalid Interpretation Code 23 - 31 mmol/L AO ADM SS Creatinine [Mass/Vol] 0.89 mg/dL Invalid Interpretation Code 0.55 - 1.02 mg/dL AO ADM SS Electrolyte Balance 9.0 mEq/L Invalid Interpretation Code 4.0 - 15.0 mEq/L AO ADM SS GFR 76 ml/min/1.73sqm Invalid Interpretation Code AO Chemistry S GFR Non- 63 ml/min/1.73sqm Invalid Interpretation Code AO Chemistry S Glucose [Mass/Vol] 149 mg/dL Invalid Interpretation Code 80 - 115 mg/dL AO ADM SS Natriuretic peptide.B prohormone N-Terminal [Mass/Vol] 853 pg/mL Invalid Interpretation Code 0 - 125 pg/mL AO ADM SS Potassium [Moles/Vol] 3.8 mmol/L Invalid Interpretation Code 3.5 - 5.1 mmol/L AO ADM SS Sodium [Moles/Vol] 144 mmol/L Invalid Interpretation Code 136 - 145 mmol/L AO ADM SS Urea nitrogen [Mass/Vol] 22 mg/dL Invalid Interpretation Code 7 - 18 mg/dL AO ADM SS Urea nitrogen/Creatinine [Mass ratio] 25 ratio Invalid Interpretation Code 7 - 27 ratio AO ADM SS LABORATORYOrdered By: Cathie Covington on 12-10-2022 Cholesterol [Mass/Vol] 193 mg/dL Invalid Interpretation Code 0 - 200 mg/dL AO ADM SS Cholesterol in HDL [Mass/Vol] 53 mg/dL Invalid Interpretation Code 40 - 60 mg/dL AO ADM SS Cholesterol in LDL [Mass/Vol] 94 mg/dL Invalid Interpretation Code 0 - 130 mg/dL AO ADM SS Triglyceride [Mass/Vol] 230 mg/dL Invalid Interpretation Code 0 - 150 mg/dL AO ADM SS LABORATORYOrdered By: Ju Griffin on 11-30-2022 Appearance (U) Clear (11/30/22 8:43 AM) Invalid Interpretation Code Clear AO Auto Urine SS Bilirubin Ql (U) Negative (11/30/22 8:43 AM) Invalid Interpretation Code Negative AO Auto Urine SS Color (U) Yellow (11/30/22 8:43 AM) Invalid Interpretation Code AO Auto Urine SS Glucose Test strip (U) [Mass/Vol] >=1000 mg/dL Invalid Interpretation Code Negativemg /dL AO Auto Urine SS Hemoglobin Auto test strip (U) [Mass/Vol] Trace *ABN* (11/30/22 8:43 AM) Invalid Interpretation Code Negative AO Auto Urine SS Ketones Ql (U) Negative Invalid Interpretation Code Negativemg /dL AO Auto Urine SS UA Leuk Est Trace *ABN* (11/30/22 8:43 AM) Invalid Interpretation Code Negative AO Auto Urine SS UA Nitrite Negative (11/30/22 8:43 AM) Invalid Interpretation Code Negative AO Auto Urine SS UA pH 5.5 (11/30/22 8:43 AM) Invalid Interpretation Code 5.0 - 8.0 AO Auto Urine SS UA Protein Negative Invalid Interpretation Code Negativemg /dL AO Auto Urine SS UA RBC 0-5 /HPF Invalid Interpretation Code None Seen/HPF AO Auto Urine SS UA Spec Grav 1.015 (11/30/22 8:43 AM) Invalid Interpretation Code 1.015-1.02 5 AO Auto Urine SS UA Specimen Type Clean Catch (11/30/22 8:43 AM) Invalid Interpretation Code AO Auto Urine SS UA Squam Epithelial 0-5 /HPF Invalid Interpretation Code None Seen/HPF AO Auto Urine SS UA Urobilinogen 0.2 E.U./dL Invalid Interpretation Code 0.2-1.0E.U ./dL AO Auto Urine SS WBC LM.HPF (Urine sed) [#/Area] 0-5 /HPF Invalid Interpretation Code None Seen/HPF AO Auto Urine SS No Panel Informationon 11-30 Culture Urine 10,000 - 50,000 cfu/ ml Mixed growth consistent with normal urogenital demarco. [facility] Work Phone: LABORATORYOrdered By: SYSTEM SYSTEM on 11-27-2022 Albumin BCP dye [Mass/Vol] 4.0 G/dL Invalid Interpretation Code 3.4 - 4.8 G/dL AO ADM SS Albumin/Globulin [Mass ratio] 1.1 {ratio} Invalid Interpretation Code 1.1 - 2.5 ratio AO ADM SS ALP [Catalytic activity/Vol] 68 U/L Invalid Interpretation Code 40 - 135 U/L AO ADM SS ALT With P-5'-P [Catalytic activity/Vol] 19 U/L Invalid Interpretation Code 14 - 59 U/L AO ADM SS AST With P-5'-P [Catalytic activity/Vol] 19 U/L Invalid Interpretation Code 10 - 40 U/L AO ADM SS Bilirubin [Mass/Vol] 0.4 mg/dL Invalid Interpretation Code 0.2 - 1.0 mg/dL AO ADM SS Calcium [Mass/Vol] 9.6 mg/dL Invalid Interpretation Code 8.4 - 10.2 mg/dL AO ADM SS Chloride [Moles/Vol] 101 mmol/L Invalid Interpretation Code 98 - 107 mmol/L AO ADM SS CO2 [Moles/Vol] 27 mmol/L Invalid Interpretation Code 23 - 31 mmol/L AO ADM SS Creatinine [Mass/Vol] 1.26 mg/dL Invalid Interpretation Code 0.55 - 1.02 mg/dL AO ADM SS CRP [Mass/Vol] 1.5 mg/dL Invalid Interpretation Code 0.0 - 0.9 mg/dL AO ADM SS Electrolyte Balance 11.0 mEq/L Invalid Interpretation Code 4.0 - 15.0 mEq/L AO ADM SS Free T4 [Mass/Vol] 1.14 ng/dL Invalid Interpretation Code 0.76 - 1.46 ng/dL AO ADM SS GFR 51 ml/min/1.73sqm Invalid Interpretation Code AO Chemistry S GFR Non- 42 ml/min/1.73sqm Invalid Interpretation Code AO Chemistry S Globulin 3.5 G/dL Invalid Interpretation Code AO ADM SS Glucose [Mass/Vol] 236 mg/dL Invalid Interpretation Code 80 - 115 mg/dL AO ADM SS Potassium [Moles/Vol] 4.5 mmol/L Invalid Interpretation Code 3.5 - 5.1 mmol/L AO ADM SS Protein [Mass/Vol] 7.5 G/dL Invalid Interpretation Code 6.4 - 8.2 G/dL AO ADM SS Sodium [Moles/Vol] 139 mmol/L Invalid Interpretation Code 136 - 145 mmol/L AO ADM SS TSH Qn 0.82 m[IU]/L Invalid Interpretation Code 0.36 - 3.74 mcIU/mL AO ADM SS Urea nitrogen [Mass/Vol] 24 mg/dL Invalid Interpretation Code 7 - 18 mg/dL AO ADM SS Urea nitrogen/Creatinine [Mass ratio] 19 ratio Invalid Interpretation Code 7 - 27 ratio AO ADM SS LABORATORYOrdered By: Geoffrey Tellez on 11-27-2022 Basophil, Absolute 0.0 103/mcL Invalid Interpretation Code 0.0 - 0.2 10^3/mcL AO Workflow SS Basophils/100 WBC (Bld) 0.6 % Invalid Interpretation Code 0.0 - 2.5 % AO Workflow SS Eosinophil, Absolute 0.1 103/mcL Invalid Interpretation Code 0.0 - 0.4 10^3/mcL AO Workflow SS Eosinophils/100 WBC (Bld) 1.2 % Invalid Interpretation Code 0.0 - 7.0 % AO Workflow SS Erythrocyte distribution width (RBC) [Ratio] 13.8 % Invalid Interpretation Code 11.5 - 14.5 % AO Workflow SS Hematocrit (Bld) [Volume fraction] 36.3 % Invalid Interpretation Code 37.0 - 47.0 % AO Workflow SS Hemoglobin (Bld) [Mass/Vol] 12.3 G/dL Invalid Interpretation Code 12.0 - 16.0 G/dL AO Workflow SS Lymphocyte, Absolute 2.2 103/mcL Invalid Interpretation Code 0.8 - 3.9 10^3/mcL AO Workflow SS Lymphocytes/100 WBC (Bld) 27.8 % Invalid Interpretation Code 10.0 - 50.0 % AO Workflow SS MCH (RBC) [Entitic mass] 30.5 pg Invalid Interpretation Code 27.0 - 31.2 pg AO Workflow SS MCHC 34.0 G/dL Invalid Interpretation Code 33.0 - 37.0 G/dL AO Workflow SS MCV (RBC) [Entitic vol] 89.7 fL Invalid Interpretation Code 80.0 - 94.0 fL AO Workflow SS Monocyte, Absolute 0.5 103/mcL Invalid Interpretation Code 0.2 - 1.0 10^3/mcL AO Workflow SS Monocytes/100 WBC (Bld) 6.7 % Invalid Interpretation Code 1.7 - 13.0 % AO Workflow SS Neutrophil, Absolute 4.9 103/mcL Invalid Interpretation Code 2.9 - 6.2 10^3/mcL AO Workflow SS Neutrophils/100 WBC (Bld) 63.7 % Invalid Interpretation Code 37.0 - 80.0 % AO Workflow SS Platelet mean volume (Bld) [Entitic vol] 8.7 fL Invalid Interpretation Code 7.4 - 10.4 fL AO Workflow SS Platelets (Bld) [#/Vol] 205 103/mcL Invalid Interpretation Code 130 - 400 10^3/mcL AO Workflow SS RBC (Bld) [#/Vol] 4.05 106/mcL Invalid Interpretation Code 4.20 - 5.40 10^6/mcL AO Workflow SS WBC (Bld) [#/Vol] 7.7 103/mcL Invalid Interpretation Code 4.6 - 10.8 10^3/mcL AO Workflow SS LABORATORYOrdered By: Chikis Moreno on 11-27-2022 ESR 15 minute reading (Bld) [Velocity] 44 mm/hr Invalid Interpretation Code 0 - 30 mm/hr AO Man Heme SS LABORATORYOrdered By: Armida Burns on 11-02-2022 Ferritin [Mass/Vol] 132.0 ng/mL Invalid Interpretation Code 8.0 - 252.0 ng/mL AO Chemistry S Iron [Mass/Vol] 69 ug/dL Invalid Interpretation Code 50 - 170 mcg/dL AO Chemistry S Iron binding capacity [Mass/Vol] 273 mcg/dL Invalid Interpretation Code 250 - 450 mcg/dL AO Chemistry S Iron Sat 25 1 Invalid Interpretation Code AO Chemistry S LABORATORYOrdered By: Cathie Covington on 09-09-2022 Natriuretic peptide.B prohormone N-Terminal [Mass/Vol] 533 pg/mL Invalid Interpretation Code 0 - 125 pg/mL AO ADM SS LABORATORYOrdered By: Pranav Fleming on 08-19-2022 Appearance (U) Hazy *ABN* (08/19/22 9:25 PM) Invalid Interpretation Code Clear AH Auto Urine SS Bilirubin Ql (U) Negative (08/19/22 9:25 PM) Invalid Interpretation Code Neg-Trace AH Auto Urine SS Color (U) Yellow (08/19/22 9:25 PM) Invalid Interpretation Code AH Auto Urine SS Glucose Test strip (U) [Mass/Vol] >=1000 mg/dL Invalid Interpretation Code Negativemg /dL AH Auto Urine SS Hemoglobin Auto test strip (U) [Mass/Vol] Negative (08/19/22 9:25 PM) Invalid Interpretation Code Neg-Trace AH Auto Urine SS Ketones Ql (U) Negative Invalid Interpretation Code Neg-Tracem g/dL AH Auto Urine SS UA Leuk Est Trace *NA* (08/19/22 9:25 PM) Invalid Interpretation Code Negative AH Auto Urine SS UA Nitrite Negative (08/19/22 9:25 PM) Invalid Interpretation Code Negative AH Auto Urine SS UA pH 5.5 (08/19/22 9:25 PM) Invalid Interpretation Code 5.0 - 8.0 AH Auto Urine SS UA Protein Negative Invalid Interpretation Code Negativemg /dL AH Auto Urine SS UA Spec Grav >=1.030 *ABN* (08/19/22 9:25 PM) Invalid Interpretation Code 1.006-1.02 9 AH Auto Urine SS UA Specimen Type Clean Catch (08/19/22 9:25 PM) Invalid Interpretation Code AH Auto Urine SS UA Urobilinogen 0.2 E.U./dL Invalid Interpretation Code 0.2-1.0E.U ./dL AH Auto Urine SS LABORATORYOrdered By: Pamela Crystal on 08-19-2022 Bacteria LM.HPF (Urine sed) [#/Area] 2 /[HPF] Invalid Interpretation Code Negative/H PF AH Auto Urine SS UA RBC Negative Invalid Interpretation Code 0-2/HPF AH Auto Urine SS UA Squam Epithelial 5-10 /HPF Invalid Interpretation Code 0-20/HPF AH Auto Urine SS WBC LM.HPF (Urine sed) [#/Area] 0-2 /HPF Invalid Interpretation Code 0-5/HPF AH Auto Urine SS LABORATORYOrdered By: Rob Tam on 08-19-2022 Adenovirus DNA ENRIQUE+non-probe Ql (Nph) Not Detected *NA* (08/19/22 4:45 PM) Invalid Interpretation Code Not Detected AH Auto Viro/Sero SS ADMITTED TO INTENSIVE CARE UNIT FOR CONDITION OF INTEREST:FIND:PT:^MATT ENT:ORD: No (08/19/22 4:45 PM) Invalid Interpretation Code AH Auto Viro/Sero SS B. parapertussis [id number] DNA ENRIQUE+non-probe Ql (Nph) Not Detected *NA* (08/19/22 4:45 PM) Invalid Interpretation Code Not Detected AH Auto Viro/Sero SS B. pertussis toxin promoter region ENRIQUE+non-probe Ql (Nph) Not Detected *NA* (08/19/22 4:45 PM) Invalid Interpretation Code Not Detected AH Auto Viro/Sero SS C. pneumoniae DNA ENRIQUE+non-probe Ql (Nph) Not Detected *NA* (08/19/22 4:45 PM) Invalid Interpretation Code Not Detected AH Auto Viro/Sero SS EMPLOYED IN A HEALTHCARE SETTING:FIND:PT:^PATIE NT:ORD: No (08/19/22 4:45 PM) Invalid Interpretation Code AH Auto Viro/Sero SS FIRST TEST FOR CONDITION OF INTEREST:FIND:PT:^MATT ENT:ORD: No (08/19/22 4:45 PM) Invalid Interpretation Code AH Auto Viro/Sero SS FLUAV RNA ENRIQUE+non-probe Ql (Nph) Not Detected *NA* (08/19/22 4:45 PM) Invalid Interpretation Code Not Detected AH Auto Viro/Sero SS FLUBV RNA ENRIQUE+non-probe Ql (Nph) Not Detected *NA* (08/19/22 4:45 PM) Invalid Interpretation Code Not Detected AH Auto Viro/Sero SS HAS SYMPTOMS RELATED TO CONDITION OF INTEREST:FIND:PT:^MATT ENT:ORD: No (08/19/22 4:45 PM) Invalid Interpretation Code Auto Viro/Sero SS hMPV RNA ENRIQUE+non-probe Ql (Nph) Not Detected *NA* (08/19/22 4:45 PM) Invalid Interpretation Code Not Detected Auto Viro/Sero SS Illness or injury onset date and time [id number] Invalid Interpretation Code Auto Viro/Sero SS M. pneumoniae DNA ENRIQUE+non-probe Ql (Nph) Not Detected *NA* (08/19/22 4:45 PM) Invalid Interpretation Code Not Detected Auto Viro/Sero SS Parainfluenza virus 1 RNA ENRIQUE+non-probe Ql (Nph) Not Detected *NA* (08/19/22 4:45 PM) Invalid Interpretation Code Not Detected Auto Viro/Sero SS Parainfluenza virus 2 RNA ENRIQUE+non-probe Ql (Nph) Not Detected *NA* (08/19/22 4:45 PM) Invalid Interpretation Code Not Detected Auto Viro/Sero SS Parainfluenza virus 3 RNA ENRIQUE+non-probe Ql (Nph) Not Detected *NA* (08/19/22 4:45 PM) Invalid Interpretation Code Not Detected Auto Viro/Sero SS Parainfluenza virus 4 RNA ENRIQUE+non-probe Ql (Nph) Not Detected *NA* (08/19/22 4:45 PM) Invalid Interpretation Code Not Detected AH Auto Viro/Sero SS Patient was hospitalized because of this condition No (08/19/22 4:45 PM) Invalid Interpretation Code Auto Viro/Sero SS status Not (08/19/22 4:45 PM) Invalid Interpretation Code Auto Viro/Sero SS RESIDES IN A CONGREGATE CARE SETTING:FIND:PT:^PATIE NT:ORD: No (08/19/22 4:45 PM) Invalid Interpretation Code Auto Viro/Sero SS Rhinovirus+Enterovirus RNA ENRIQUE+non-probe Ql (Nph) Not Detected *NA* (08/19/22 4:45 PM) Invalid Interpretation Code Not Detected AH Auto Viro/Sero SS RSV RNA ENRIQUE+non-probe Ql (Nph) Not Detected *NA* (08/19/22 4:45 PM) Invalid Interpretation Code Not Detected AH Auto Viro/Sero SS SARS-CoV-2 (COVID-19) RNA ENRIQUE+probe Ql (Resp) Not Detected *NA* (08/19/22 4:45 PM) Invalid Interpretation Code Not Detected AH Auto Viro/Sero SS LABORATORYOrdered By: SYSTEM SYSTEM on 08-19-2022 Albumin BCP dye [Mass/Vol] 3.9 G/dL Invalid Interpretation Code 3.2 - 4.8 G/dL AH ADM SS Albumin/Globulin [Mass ratio] 1.1 {ratio} Invalid Interpretation Code 0.9 - 1.6 ratio AH ADM SS ALP [Catalytic activity/Vol] 59 U/L Invalid Interpretation Code 38 - 126 U/L ADM SS ALT No additional P-5'-P [Catalytic activity/Vol] 12 U/L Invalid Interpretation Code 10 - 49 U/L AH ADM SS AST [Catalytic activity/Vol] 19 U/L Invalid Interpretation Code 8 - 34 U/L AH ADM SS Basophils (Bld) [#/Vol] 0.0 103/mcL Invalid Interpretation Code 0.0 - 0.3 10^3/mcL AH Workflow SS Basophils/100 WBC (Bld) 0.2 % Invalid Interpretation Code 0.0 - 2.5 % AH Workflow SS Bilirubin [Mass/Vol] 0.70 mg/dL Invalid Interpretation Code 0.20 - 1.20 mg/dL AH ADM SS Calcium [Mass/Vol] 9.6 mg/dL Invalid Interpretation Code 8.7 - 10.4 mg/dL AH ADM SS Chloride [Moles/Vol] 104 mmol/L Invalid Interpretation Code 98 - 110 mEq/L AH ADM SS CO2 [Moles/Vol] 30 mmol/L Invalid Interpretation Code 22 - 32 mEq/L AH ADM SS Creatinine [Mass/Vol] 1.15 mg/dL Invalid Interpretation Code 0.50 - 1.20 mg/dL AH ADM SS Electrolyte Balance 5.0 mEq/L Invalid Interpretation Code 4.0 - 15.0 mEq/L AH ADM SS Eosinophils (Bld) [#/Vol] 0.0 103/mcL Invalid Interpretation Code 0.0 - 0.7 10^3/mcL AH Workflow SS Eosinophils/100 WBC (Bld) 0.1 % Invalid Interpretation Code 0.0 - 6.0 % AH Workflow SS Erythrocyte distribution width (RBC) [Ratio] 13.5 % Invalid Interpretation Code 11.5 - 15.5 % AH Workflow SS GFR/1.73 sq M.predicted among blacks MDRD (S/P/Bld) [Vol rate/Area] 57 ml/min/1.73sqm Invalid Interpretation Code AH ADM SS GFR/1.73 sq M.predicted among non-blacks MDRD (S/P/Bld) [Vol rate/Area] 47 ml/min/1.73sqm Invalid Interpretation Code AH ADM SS Globulin 3.5 G/dL Invalid Interpretation Code 1.5 - 3.8 G/dL AH ADM SS Glucose [Mass/Vol] 72 mg/dL Invalid Interpretation Code 82 - 115 mg/dL AH ADM SS Hematocrit (Bld) [Volume fraction] 36.4 % Invalid Interpretation Code 34.0 - 46.0 % AH Workflow SS Hemoglobin (Bld) [Mass/Vol] 12.3 G/dL Invalid Interpretation Code 12.0 - 16.0 G/dL AH Workflow SS Lymphocytes (Bld) [#/Vol] 3.7 103/mcL Invalid Interpretation Code 0.9 - 4.3 10^3/mcL AH Workflow SS Lymphocytes/100 WBC (Bld) 22.4 % Invalid Interpretation Code 20.0 - 40.0 % AH Workflow SS MCH (RBC) [Entitic mass] 30.7 pg Invalid Interpretation Code 27.0 - 33.0 pg AH Workflow SS MCHC 33.7 G/dL Invalid Interpretation Code 32.0 - 36.0 G/dL AH Workflow SS MCV (RBC) [Entitic vol] 91.0 fL Invalid Interpretation Code 80.0 - 99.0 fL AH Workflow SS Monocyte distribution width Auto (Bld) [Entitic vol] 20.55 Invalid Interpretation Code 0.00 - 20.00 AH Workflow SS Comment on above: Result Comment: For adults in ED, MDW>20.0 may be associated with a higher risk of sepsis during the first 12hrs of hospital admission Monocytes (Bld) [#/Vol] 0.9 103/mcL Invalid Interpretation Code 0.1 - 1.4 10^3/mcL AH Workflow SS Monocytes/100 WBC (Bld) 5.2 % Invalid Interpretation Code 2.0 - 13.0 % AH Workflow SS Neutrophils (Bld) [#/Vol] 12.0 103/mcL Invalid Interpretation Code 2.3 - 8.1 10^3/mcL AH Workflow SS Neutrophils/100 WBC (Bld) 72.1 % Invalid Interpretation Code 50.0 - 75.0 % AH Workflow SS Platelet mean volume (Bld) [Entitic vol] 9.0 fL Invalid Interpretation Code 6.6 - 10.5 fL AH Workflow SS Platelets (Bld) [#/Vol] 183 103/mcL Invalid Interpretation Code 150 - 450 10^3/mcL AH Workflow SS Potassium [Moles/Vol] 4.0 mmol/L Invalid Interpretation Code 3.5 - 5.0 mEq/L ADM SS Protein [Mass/Vol] 7.4 G/dL Invalid Interpretation Code 5.7 - 8.2 G/dL ADM SS RBC (Bld) [#/Vol] 4.00 106/mcL Invalid Interpretation Code 4.10 - 5.30 10^6/mcL AH Workflow SS Sodium [Moles/Vol] 139 mmol/L Invalid Interpretation Code 136 - 145 mEq/L ADM SS Troponin I.cardiac DL <= 0.01 ng/mL [Mass/Vol] 8.52 ng/L Invalid Interpretation Code 0.00 - 34.00 ng/L AH ADM SS Urea nitrogen [Mass/Vol] 19.0 mg/dL Invalid Interpretation Code 8.0 - 22.0 mg/dL ADM SS Urea nitrogen/Creatinine [Mass ratio] 16.5 ratio Invalid Interpretation Code 10.0 - 22.0 ratio ADM SS WBC (Bld) [#/Vol] 16.6 103/mcL Invalid Interpretation Code 4.5 - 10.8 10^3/mcL AH Workflow SS LABORATORYOrdered By: Je Drake on 08-19-2022 Lactate [Moles/Vol] 1.1 mmol/L Invalid Interpretation Code 0.2 - 2.0 mmol/L Auto Chem SS LABORATORYOrdered By: Yoly Cortes on 08-19-2022 Natriuretic peptide.B prohormone N-Terminal [Mass/Vol] 924 pg/mL Invalid Interpretation Code 0 - 900 pg/mL Auto Chem SS No Panel Informationon 08-19 Culture Urine Culture results pending. [facility] Work Phone: Microscopic examination of blood, culture Culture has been received in lab and is no growth to date. Routine cultures are held for 5 days. [facility] Work Phone: LABORATORYOrdered By: Ju Griffin on 07-20-2022 Natriuretic peptide.B prohormone N-Terminal [Mass/Vol] 390 pg/mL Invalid Interpretation Code 0 - 125 pg/mL AO ADM SS LABORATORYOrdered By: Geoffrey Tellez on 07-01-2022 Basophil, Absolute 0.0 103/mcL Invalid Interpretation Code 0.0 - 0.2 10^3/mcL AO Workflow SS Basophils/100 WBC (Bld) 0.6 % Invalid Interpretation Code 0.0 - 2.5 % AO Workflow SS Eosinophil, Absolute 0.1 103/mcL Invalid Interpretation Code 0.0 - 0.4 10^3/mcL AO Workflow SS Eosinophils/100 WBC (Bld) 2.5 % Invalid Interpretation Code 0.0 - 7.0 % AO Workflow SS Erythrocyte distribution width (RBC) [Ratio] 13.8 % Invalid Interpretation Code 11.5 - 14.5 % AO Workflow SS Hematocrit (Bld) [Volume fraction] 37.2 % Invalid Interpretation Code 37.0 - 47.0 % AO Workflow SS Hemoglobin (Bld) [Mass/Vol] 12.6 G/dL Invalid Interpretation Code 12.0 - 16.0 G/dL AO Workflow SS Lymphocyte, Absolute 2.3 103/mcL Invalid Interpretation Code 0.8 - 3.9 10^3/mcL AO Workflow SS Lymphocytes/100 WBC (Bld) 38.5 % Invalid Interpretation Code 10.0 - 50.0 % AO Workflow SS MCH (RBC) [Entitic mass] 30.9 pg Invalid Interpretation Code 27.0 - 31.2 pg AO Workflow SS MCHC 33.8 G/dL Invalid Interpretation Code 33.0 - 37.0 G/dL AO Workflow SS MCV (RBC) [Entitic vol] 91.2 fL Invalid Interpretation Code 80.0 - 94.0 fL AO Workflow SS Monocyte, Absolute 0.4 103/mcL Invalid Interpretation Code 0.2 - 1.0 10^3/mcL AO Workflow SS Monocytes/100 WBC (Bld) 6.5 % Invalid Interpretation Code 1.7 - 13.0 % AO Workflow SS Neutrophil, Absolute 3.1 103/mcL Invalid Interpretation Code 2.9 - 6.2 10^3/mcL AO Workflow SS Neutrophils/100 WBC (Bld) 51.9 % Invalid Interpretation Code 37.0 - 80.0 % AO Workflow SS Platelet mean volume (Bld) [Entitic vol] 8.8 fL Invalid Interpretation Code 7.4 - 10.4 fL AO Workflow SS Platelets (Bld) [#/Vol] 173 103/mcL Invalid Interpretation Code 130 - 400 10^3/mcL AO Workflow SS RBC (Bld) [#/Vol] 4.08 106/mcL Invalid Interpretation Code 4.20 - 5.40 10^6/mcL AO Workflow SS WBC 6.0 103/mcL Invalid Interpretation Code 4.6 - 10.8 10^3/mcL AO Workflow SS LABORATORYOrdered By: Cathie Covington on 07-01-2022 Ferritin [Mass/Vol] 132.0 ng/mL Invalid Interpretation Code 8.0 - 252.0 ng/mL AO ADM SS Iron binding capacity [Mass/Vol] 287 mcg/dL Invalid Interpretation Code 250 - 450 mcg/dL AO ADM SS LABORATORYOrdered By: SYSTEM SYSTEM on 07-01-2022 Monocyte distribution width Auto (Bld) [Entitic vol] Not Performed 1 *NA* (07/01/22 11:01 AM) Invalid Interpretation Code 0.00 - 20.00 AO Hematology S Comment on above: Result Comment: MDW testing performed only on adult ER patients between the ages of 18-89 years. LABORATORYOrdered By: Cathie Covington on 06-09-2022 Ferritin [Mass/Vol] 155.0 ng/mL Invalid Interpretation Code 8.0 - 252.0 ng/mL AO ADM SS Iron binding capacity [Mass/Vol] 291 mcg/dL Invalid Interpretation Code 250 - 450 mcg/dL AO ADM SS LABORATORYOrdered By: Geoffrey Tellez on 06-01-2022 Albumin BCP dye [Mass/Vol] 3.9 G/dL Invalid Interpretation Code 3.4 - 4.8 G/dL AO ADM SS Albumin/Globulin [Mass ratio] 1.3 {ratio} Invalid Interpretation Code 1.1 - 2.5 ratio AO ADM SS ALP [Catalytic activity/Vol] 59 U/L Invalid Interpretation Code 40 - 135 U/L AO ADM SS ALT With P-5'-P [Catalytic activity/Vol] 23 U/L Invalid Interpretation Code 14 - 59 U/L AO ADM SS AST With P-5'-P [Catalytic activity/Vol] 24 U/L Invalid Interpretation Code 10 - 40 U/L AO ADM SS Bilirubin [Mass/Vol] 0.3 mg/dL Invalid Interpretation Code 0.2 - 1.0 mg/dL AO ADM SS Calcium [Mass/Vol] 9.0 mg/dL Invalid Interpretation Code 8.4 - 10.2 mg/dL AO ADM SS Chloride [Moles/Vol] 106 mmol/L Invalid Interpretation Code 98 - 107 mmol/L AO ADM SS CO2 [Moles/Vol] 30 mmol/L Invalid Interpretation Code 23 - 31 mmol/L AO ADM SS Creatinine [Mass/Vol] 1.32 mg/dL Invalid Interpretation Code 0.55 - 1.02 mg/dL AO ADM SS Electrolyte Balance 4.0 mEq/L Invalid Interpretation Code 4.0 - 15.0 mEq/L AO ADM SS Globulin 3.0 G/dL Invalid Interpretation Code AO ADM SS Glucose [Mass/Vol] 194 mg/dL Invalid Interpretation Code 80 - 115 mg/dL AO ADM SS Potassium [Moles/Vol] 4.5 mmol/L Invalid Interpretation Code 3.5 - 5.1 mmol/L AO ADM SS Protein [Mass/Vol] 6.9 G/dL Invalid Interpretation Code 6.4 - 8.2 G/dL AO ADM SS Sodium [Moles/Vol] 140 mmol/L Invalid Interpretation Code 136 - 145 mmol/L AO ADM SS Urea nitrogen [Mass/Vol] 27 mg/dL Invalid Interpretation Code 7 - 18 mg/dL AO ADM SS Urea nitrogen/Creatinine [Mass ratio] 20 ratio Invalid Interpretation Code 7 - 27 ratio AO ADM SS Vit. D 25-Hydroxy 26.8 ng/mL Invalid Interpretation Code AO ADM SS LABORATORYOrdered By: SYSTEM SYSTEM on 06-01-2022 GFR 48 ml/min/1.73sqm Invalid Interpretation Code AO Chemistry S GFR Non- 40 ml/min/1.73sqm Invalid Interpretation Code AO Chemistry S LABORATORYOrdered By: Cheli Kuo on 06-01-2022 HbA1c (Bld) [Mass fraction] 7.3 % Invalid Interpretation Code 4.3 - 6.4 % AO ADM SS LABORATORYOrdered By: Rob Tam on 05-22-2022 Adenovirus DNA ENRIQUE+non-probe Ql (Nph) Not Detected *NA* (05/22/22 2:10 PM) Invalid Interpretation Code Not Detected AH Auto Viro/Sero SS ADMITTED TO INTENSIVE CARE UNIT FOR CONDITION OF INTEREST:FIND:PT:^MATT ENT:ORD: No (05/22/22 2:10 PM) Invalid Interpretation Code AH Auto Viro/Sero SS B. pertussis toxin promoter region ENRIQUE+non-probe Ql (Nph) Not Detected *NA* (05/22/22 2:10 PM) Invalid Interpretation Code Not Detected AH Auto Viro/Sero SS Bordetella Parapertussis Not Detected *NA* (05/22/22 2:10 PM) Invalid Interpretation Code Not Detected AH Auto Viro/Sero SS C. pneumoniae DNA ENRIQUE+non-probe Ql (Nph) Not Detected *NA* (05/22/22 2:10 PM) Invalid Interpretation Code Not Detected AH Auto Viro/Sero SS EMPLOYED IN A HEALTHCARE SETTING:FIND:PT:^PATIE NT:ORD: No (05/22/22 2:10 PM) Invalid Interpretation Code AH Auto Viro/Sero SS FIRST TEST FOR CONDITION OF INTEREST:FIND:PT:^MATT ENT:ORD: No (05/22/22 2:10 PM) Invalid Interpretation Code AH Auto Viro/Sero SS FLUAV RNA ENRIQUE+non-probe Ql (Nph) Not Detected *NA* (05/22/22 2:10 PM) Invalid Interpretation Code Not Detected AH Auto Viro/Sero SS FLUBV RNA ENRIQUE+non-probe Ql (Nph) Not Detected *NA* (05/22/22 2:10 PM) Invalid Interpretation Code Not Detected AH Auto Viro/Sero SS HAS SYMPTOMS RELATED TO CONDITION OF INTEREST:FIND:PT:^MATT ENT:ORD: No (05/22/22 2:10 PM) Invalid Interpretation Code AH Auto Viro/Sero SS hMPV RNA ENRIQUE+non-probe Ql (Nph) Not Detected *NA* (05/22/22 2:10 PM) Invalid Interpretation Code Not Detected AH Auto Viro/Sero SS Illness or injury onset date and time [id number] Invalid Interpretation Code AH Auto Viro/Sero SS M. pneumoniae DNA ENRIQUE+non-probe Ql (Nph) Not Detected *NA* (05/22/22 2:10 PM) Invalid Interpretation Code Not Detected AH Auto Viro/Sero SS Parainfluenza virus 1 RNA ENRIQUE+non-probe Ql (Nph) Not Detected *NA* (05/22/22 2:10 PM) Invalid Interpretation Code Not Detected AH Auto Viro/Sero SS Parainfluenza virus 2 RNA ENRIQUE+non-probe Ql (Nph) Not Detected *NA* (05/22/22 2:10 PM) Invalid Interpretation Code Not Detected AH Auto Viro/Sero SS Parainfluenza virus 3 RNA ENRIQUE+non-probe Ql (Nph) Not Detected *NA* (05/22/22 2:10 PM) Invalid Interpretation Code Not Detected AH Auto Viro/Sero SS Parainfluenza virus 4 RNA ENRIQUE+non-probe Ql (Nph) Not Detected *NA* (05/22/22 2:10 PM) Invalid Interpretation Code Not Detected AH Auto Viro/Sero SS Patient was hospitalized because of this condition No (05/22/22 2:10 PM) Invalid Interpretation Code AH Auto Viro/Sero SS status Not (05/22/22 2:10 PM) Invalid Interpretation Code AH Auto Viro/Sero SS RESIDES IN A CONGREGATE CARE SETTING:FIND:PT:^PATIE NT:ORD: No (05/22/22 2:10 PM) Invalid Interpretation Code AH Auto Viro/Sero SS Rhinovirus+Enterovirus RNA ENRIQUE+non-probe Ql (Nph) Not Detected *NA* (05/22/22 2:10 PM) Invalid Interpretation Code Not Detected AH Auto Viro/Sero SS RSV RNA ENRIQUE+non-probe Ql (Nph) Not Detected *NA* (05/22/22 2:10 PM) Invalid Interpretation Code Not Detected AH Auto Viro/Sero SS SARS-CoV-2 (COVID-19) RNA ENRIQUE+probe Ql (Unsp spec) Not Detected *NA* (05/22/22 2:10 PM) Invalid Interpretation Code Not Detected AH Auto Viro/Sero SS LABORATORYOrdered By: Jade Mcclellan on 05-22-2022 Appearance (U) Clear (05/22/22 2:10 PM) Invalid Interpretation Code Clear AH Auto Urine SS Bilirubin Ql (U) Negative (05/22/22 2:10 PM) Invalid Interpretation Code Neg-Trace AH Auto Urine SS Color (U) Yellow (05/22/22 2:10 PM) Invalid Interpretation Code AH Auto Urine SS Glucose Test strip (U) [Mass/Vol] Negative Invalid Interpretation Code Negativemg /dL AH Auto Urine SS Hemoglobin Auto test strip (U) [Mass/Vol] Negative (05/22/22 2:10 PM) Invalid Interpretation Code Neg-Trace AH Auto Urine SS Ketones Ql (U) Negative Invalid Interpretation Code Neg-Tracem g/dL AH Auto Urine SS UA Leuk Est Trace *NA* (05/22/22 2:10 PM) Invalid Interpretation Code Negative AH Auto Urine SS UA Nitrite Negative (05/22/22 2:10 PM) Invalid Interpretation Code Negative AH Auto Urine SS UA pH 7.5 (05/22/22 2:10 PM) Invalid Interpretation Code 5.0 - 8.0 AH Auto Urine SS UA Protein Negative Invalid Interpretation Code Negativemg /dL AH Auto Urine SS UA Spec Grav 1.010 (05/22/22 2:10 PM) Invalid Interpretation Code 1.006-1.02 9 Auto Urine SS UA Specimen Type Clean Catch (05/22/22 2:10 PM) Invalid Interpretation Code AH Auto Urine SS UA Urobilinogen 0.2 E.U./dL Invalid Interpretation Code 0.2-1.0E.U ./dL AH Auto Urine SS LABORATORYOrdered By: SYSTEM SYSTEM on 05-22-2022 Albumin BCP dye [Mass/Vol] 4.1 G/dL Invalid Interpretation Code 3.2 - 4.8 G/dL ADM SS Albumin/Globulin [Mass ratio] 1.3 {ratio} Invalid Interpretation Code 0.9 - 1.6 ratio ADM SS ALP [Catalytic activity/Vol] 53 U/L Invalid Interpretation Code 38 - 126 U/L ADM SS ALT No additional P-5'-P [Catalytic activity/Vol] 12 U/L Invalid Interpretation Code 10 - 49 U/L ADM SS AST [Catalytic activity/Vol] 25 U/L Invalid Interpretation Code 8 - 34 U/L AH ADM SS Basophils (Bld) [#/Vol] 0.1 103/mcL Invalid Interpretation Code 0.0 - 0.3 10^3/mcL Workflow SS Basophils/100 WBC (Bld) 0.6 % Invalid Interpretation Code 0.0 - 2.5 % Workflow SS Bilirubin [Mass/Vol] 0.50 mg/dL Invalid Interpretation Code 0.20 - 1.20 mg/dL ADM SS Calcium [Mass/Vol] 9.9 mg/dL Invalid Interpretation Code 8.7 - 10.4 mg/dL ADM SS Chloride [Moles/Vol] 104 mmol/L Invalid Interpretation Code 98 - 110 mEq/L ADM SS CO2 [Moles/Vol] 28 mmol/L Invalid Interpretation Code 22 - 32 mEq/L ADM SS Creatinine [Mass/Vol] 1.18 mg/dL Invalid Interpretation Code 0.50 - 1.20 mg/dL ADM SS Electrolyte Balance 6.0 mEq/L Invalid Interpretation Code 4.0 - 15.0 mEq/L ADM SS Eosinophils (Bld) [#/Vol] 0.1 103/mcL Invalid Interpretation Code 0.0 - 0.7 10^3/mcL Workflow SS Eosinophils/100 WBC (Bld) 0.8 % Invalid Interpretation Code 0.0 - 6.0 % Workflow SS Erythrocyte distribution width (RBC) [Ratio] 13.5 % Invalid Interpretation Code 11.5 - 15.5 % Workflow SS GFR/1.73 sq M.predicted among blacks MDRD (S/P/Bld) [Vol rate/Area] 55 ml/min/1.73sqm Invalid Interpretation Code ADM SS GFR/1.73 sq M.predicted among non-blacks MDRD (S/P/Bld) [Vol rate/Area] 45 ml/min/1.73sqm Invalid Interpretation Code ADM SS Globulin 3.2 G/dL Invalid Interpretation Code 1.5 - 3.8 G/dL ADM SS Glucose [Mass/Vol] 175 mg/dL Invalid Interpretation Code 82 - 115 mg/dL ADM SS Hematocrit (Bld) [Volume fraction] 32.4 % Invalid Interpretation Code 34.0 - 46.0 % Workflow SS Hemoglobin (Bld) [Mass/Vol] 11.2 G/dL Invalid Interpretation Code 12.0 - 16.0 G/dL Workflow SS Lymphocytes (Bld) [#/Vol] 2.2 103/mcL Invalid Interpretation Code 0.9 - 4.3 10^3/mcL Workflow SS Lymphocytes/100 WBC (Bld) 18.0 % Invalid Interpretation Code 20.0 - 40.0 % Workflow SS MCH (RBC) [Entitic mass] 31.0 pg Invalid Interpretation Code 27.0 - 33.0 pg Workflow SS MCHC 34.5 G/dL Invalid Interpretation Code 32.0 - 36.0 G/dL AH Workflow SS MCV (RBC) [Entitic vol] 89.9 fL Invalid Interpretation Code 80.0 - 99.0 fL AH Workflow SS Monocyte distribution width Auto (Bld) [Entitic vol] 21.19 Invalid Interpretation Code 0.00 - 20.00 AH Workflow SS Comment on above: Result Comment: For adults in ED, MDW>20.0 may be associated with a higher risk of sepsis during the first 12hrs of hospital admission Monocytes (Bld) [#/Vol] 0.6 103/mcL Invalid Interpretation Code 0.1 - 1.4 10^3/mcL AH Workflow SS Monocytes/100 WBC (Bld) 5.0 % Invalid Interpretation Code 2.0 - 13.0 % AH Workflow SS Neutrophils (Bld) [#/Vol] 9.3 103/mcL Invalid Interpretation Code 2.3 - 8.1 10^3/mcL AH Workflow SS Neutrophils/100 WBC (Bld) 75.6 % Invalid Interpretation Code 50.0 - 75.0 % AH Workflow SS Ovalocytes LM Ql (Bld) 1+ *NA* (05/22/22 1:53 PM) Invalid Interpretation Code AH Workflow SS Platelet mean volume (Bld) [Entitic vol] 8.8 fL Invalid Interpretation Code 6.6 - 10.5 fL AH Workflow SS Platelets (Bld) [#/Vol] 172 103/mcL Invalid Interpretation Code 150 - 450 10^3/mcL AH Workflow SS Platelets LM Ql (Bld) Normal *NA* (05/22/22 1:53 PM) Invalid Interpretation Code AH Workflow SS Poikilocytosis LM Ql (Bld) 1+ *NA* (05/22/22 1:53 PM) Invalid Interpretation Code AH Workflow SS Potassium [Moles/Vol] 4.2 mmol/L Invalid Interpretation Code 3.5 - 5.0 mEq/L AH ADM SS Comment on above: Result Comment: Spec imen slightly hemolyzed. Protein [Mass/Vol] 7.3 G/dL Invalid Interpretation Code 5.7 - 8.2 G/dL AH ADM SS RBC (Bld) [#/Vol] 3.60 106/mcL Invalid Interpretation Code 4.10 - 5.30 10^6/mcL AH Workflow SS Sodium [Moles/Vol] 138 mmol/L Invalid Interpretation Code 136 - 145 mEq/L ADM SS Troponin I.cardiac DL <= 0.01 ng/mL [Mass/Vol] 29.89 ng/L Invalid Interpretation Code 0.00 - 34.00 ng/L ADM SS Urea nitrogen [Mass/Vol] 20.0 mg/dL Invalid Interpretation Code 8.0 - 22.0 mg/dL ADM SS Urea nitrogen/Creatinine [Mass ratio] 16.9 ratio Invalid Interpretation Code 10.0 - 22.0 ratio ADM SS WBC 12.4 103/mcL Invalid Interpretation Code 4.5 - 10.8 10^3/mcL AH Workflow SS LABORATORYOrdered By: Yoly Cortes on 05-22-2022 Lactate [Moles/Vol] 1.1 mmol/L Invalid Interpretation Code 0.2 - 2.0 mmol/L Auto Chem SS Natriuretic peptide.B prohormone N-Terminal [Mass/Vol] 3652 pg/mL Invalid Interpretation Code 0 - 900 pg/mL Auto Chem SS No Panel Informationon 05-22 Microscopic examination of blood, culture Culture has been received in lab and is no growth to date. Routine cultures are held for 5 days. [facility] Work Phone: LABORATORYOrdered By: Geoffrey Tellez on 05-01-2022 Basophil, Absolute 0.0 103/mcL Invalid Interpretation Code 0.0 - 0.2 10^3/mcL AO Workflow SS Basophils/100 WBC (Bld) 0.5 % Invalid Interpretation Code 0.0 - 2.5 % AO Workflow SS Eosinophil, Absolute 0.2 103/mcL Invalid Interpretation Code 0.0 - 0.4 10^3/mcL AO Workflow SS Eosinophils/100 WBC (Bld) 3.5 % Invalid Interpretation Code 0.0 - 7.0 % AO Workflow SS Erythrocyte distribution width (RBC) [Ratio] 14.0 % Invalid Interpretation Code 11.5 - 14.5 % AO Workflow SS Hematocrit (Bld) [Volume fraction] 35.1 % Invalid Interpretation Code 37.0 - 47.0 % AO Workflow SS Hgb 11.9 G/dL Invalid Interpretation Code 12.0 - 16.0 G/dL AO Workflow SS Lymphocyte, Absolute 2.3 103/mcL Invalid Interpretation Code 0.8 - 3.9 10^3/mcL AO Workflow SS Lymphocytes/100 WBC (Bld) 38.5 % Invalid Interpretation Code 10.0 - 50.0 % AO Workflow SS MCH (RBC) [Entitic mass] 30.8 pg Invalid Interpretation Code 27.0 - 31.2 pg AO Workflow SS MCHC 33.9 G/dL Invalid Interpretation Code 33.0 - 37.0 G/dL AO Workflow SS MCV (RBC) [Entitic vol] 90.9 fL Invalid Interpretation Code 80.0 - 94.0 fL AO Workflow SS Monocyte, Absolute 0.5 103/mcL Invalid Interpretation Code 0.2 - 1.0 10^3/mcL AO Workflow SS Monocytes/100 WBC (Bld) 8.0 % Invalid Interpretation Code 1.7 - 13.0 % AO Workflow SS Neutrophil, Absolute 2.9 103/mcL Invalid Interpretation Code 2.9 - 6.2 10^3/mcL AO Workflow SS Neutrophils/100 WBC (Bld) 49.5 % Invalid Interpretation Code 37.0 - 80.0 % AO Workflow SS Platelet 152 103/mcL Invalid Interpretation Code 130 - 400 10^3/mcL AO Workflow SS Platelet mean volume (Bld) [Entitic vol] 9.0 fL Invalid Interpretation Code 7.4 - 10.4 fL AO Workflow SS RBC 3.86 106/mcL Invalid Interpretation Code 4.20 - 5.40 10^6/mcL AO Workflow SS WBC 5.9 103/mcL Invalid Interpretation Code 4.6 - 10.8 10^3/mcL AO Workflow SS LABORATORYOrdered By: Cheli Kuo on 05-01-2022 Calcium [Mass/Vol] 9.8 mg/dL Invalid Interpretation Code 8.4 - 10.2 mg/dL AO ADM SS Chloride [Moles/Vol] 103 mmol/L Invalid Interpretation Code 98 - 107 mmol/L AO ADM SS CO2 [Moles/Vol] 29 mmol/L Invalid Interpretation Code 23 - 31 mmol/L AO ADM SS Creatinine [Mass/Vol] 1.34 mg/dL Invalid Interpretation Code 0.55 - 1.02 mg/dL AO ADM SS Electrolyte Balance 9.0 mEq/L Invalid Interpretation Code 4.0 - 15.0 mEq/L AO ADM SS Glucose [Mass/Vol] 206 mg/dL Invalid Interpretation Code 80 - 115 mg/dL AO ADM SS Magnesium [Mass/Vol] 2.1 mg/dL Invalid Interpretation Code 1.8 - 2.4 mg/dL AO ADM SS Potassium [Moles/Vol] 5.2 mmol/L Invalid Interpretation Code 3.5 - 5.1 mmol/L AO ADM SS Sodium [Moles/Vol] 141 mmol/L Invalid Interpretation Code 136 - 145 mmol/L AO ADM SS Urea nitrogen [Mass/Vol] 28 mg/dL Invalid Interpretation Code 7 - 18 mg/dL AO ADM SS Urea nitrogen/Creatinine [Mass ratio] 21 ratio Invalid Interpretation Code 7 - 27 ratio AO ADM SS LABORATORYOrdered By: SYSTEM SYSTEM on 05-01-2022 GFR 48 ml/min/1.73sqm Invalid Interpretation Code AO Chemistry S GFR Non- 39 ml/min/1.73sqm Invalid Interpretation Code AO Chemistry S Monocyte distribution width Auto (Bld) [Entitic vol] Not Performed 1 *NA* (05/01/22 10:09 AM) Invalid Interpretation Code 0.00 - 20.00 AO Hematology S Comment on above: Result Comment: MDW testing performed only on adult ER patients between the ages of 18-89 years. LABORATORYOrdered By: SYSTEM SYSTEM on 03-24-2022 Cortisol [Mass/Vol] 25.0 ug/dL Invalid Interpretation Code 6.5 - 26.0 mcg/dL AH ADM SS LABORATORYOrdered By: Geoffrey Tellez on 03-20-2022 Basophil, Absolute 0.00 103/mcL Invalid Interpretation Code 0.00 - 0.19 10^3/mcL AO Auto Heme SS Basophils/100 WBC (Bld) 0.4 % Invalid Interpretation Code 0.0 - 2.5 % AO Auto Heme SS Eosinophil, Absolute 0.20 103/mcL Invalid Interpretation Code 0.00 - 0.40 10^3/mcL AO Auto Heme SS Eosinophils/100 WBC (Bld) 2.7 % Invalid Interpretation Code 0.0 - 7.0 % AO Auto Heme SS Erythrocyte distribution width (RBC) [Ratio] 14.8 % Invalid Interpretation Code 11.5 - 14.5 % AO Auto Heme SS ESR 15 minute reading (Bld) [Velocity] 47 mm/hr Invalid Interpretation Code 0 - 30 mm/hr AO Man Heme SS Hematocrit (Bld) [Volume fraction] 34.0 % Invalid Interpretation Code 37.0 - 47.0 % AO Auto Heme SS Hemoglobin (Bld) [Mass/Vol] 11.4 G/dL Invalid Interpretation Code 12.0 - 16.0 G/dL AO Auto Heme SS Lymphocyte, Absolute 2.80 103/mcL Invalid Interpretation Code 0.77 - 3.85 10^3/mcL AO Auto Heme SS Lymphocytes/100 WBC (Bld) 41.0 % Invalid Interpretation Code 10.0 - 50.0 % AO Auto Heme SS MCH (RBC) [Entitic mass] 30.2 pg Invalid Interpretation Code 27.0 - 31.2 pg AO Auto Heme SS MCHC (RBC) [Mass/Vol] 33.6 G/dL Invalid Interpretation Code 33.0 - 37.0 G/dL AO Auto Heme SS MCV (RBC) [Entitic vol] 89.9 fL Invalid Interpretation Code 80.0 - 94.0 fL AO Auto Heme SS Monocyte, Absolute 0.40 103/mcL Invalid Interpretation Code 0.15 - 1.00 10^3/mcL AO Auto Heme SS Monocytes/100 WBC (Bld) 5.9 % Invalid Interpretation Code 1.7 - 13.0 % AO Auto Heme SS Neutrophil, Absolute 3.40 103/mcL Invalid Interpretation Code 2.85 - 6.16 10^3/mcL AO Auto Heme SS Neutrophils/100 WBC (Bld) 50.0 % Invalid Interpretation Code 37.0 - 80.0 % AO Auto Heme SS Platelet mean volume (Bld) [Entitic vol] 9.0 fL Invalid Interpretation Code 7.4 - 10.4 fL AO Auto Heme SS Platelets (Bld) [#/Vol] 205 103/mcL Invalid Interpretation Code 130 - 400 10^3/mcL AO Auto Heme SS RBC (Bld) [#/Vol] 3.78 106/mcL Invalid Interpretation Code 4.20 - 5.40 10^6/mcL AO Auto Heme SS WBC (Bld) [#/Vol] 6.80 103/mcL Invalid Interpretation Code 4.60 - 10.80 10^3/mcL AO Auto Heme SS LABORATORYOrdered By: Ju Sharp on 03-20-2022 C-Reactive Protein mg/dL Invalid Interpretation Code 0.0 - 0.9 mg/dL AO Chemistry S Calcium [Mass/Vol] 9.2 mg/dL Invalid Interpretation Code 8.4 - 10.2 mg/dL AO ADM SS Chloride [Moles/Vol] 103 mmol/L Invalid Interpretation Code 98 - 107 mmol/L AO ADM SS CO2 [Moles/Vol] 26 mmol/L Invalid Interpretation Code 23 - 31 mmol/L AO ADM SS Creatinine [Mass/Vol] 1.35 mg/dL Invalid Interpretation Code 0.55 - 1.02 mg/dL AO ADM SS Electrolyte Balance 10.0 mEq/L Invalid Interpretation Code 4.0 - 15.0 mEq/L AO ADM SS Glucose [Mass/Vol] 234 mg/dL Invalid Interpretation Code 80 - 115 mg/dL AO ADM SS Iron [Mass/Vol] 73 ug/dL Invalid Interpretation Code 50 - 170 mcg/dL AO ADM SS Iron binding capacity [Mass/Vol] 318 mcg/dL Invalid Interpretation Code 250 - 450 mcg/dL AO ADM SS Magnesium [Mass/Vol] 2.1 mg/dL Invalid Interpretation Code 1.8 - 2.4 mg/dL AO ADM SS Potassium [Moles/Vol] 5.3 mmol/L Invalid Interpretation Code 3.5 - 5.1 mmol/L AO ADM SS Sodium [Moles/Vol] 139 mmol/L Invalid Interpretation Code 136 - 145 mmol/L AO ADM SS Urea nitrogen [Mass/Vol] 31 mg/dL Invalid Interpretation Code 7 - 18 mg/dL AO ADM SS Urea nitrogen/Creatinine [Mass ratio] 23 ratio Invalid Interpretation Code 7 - 27 ratio AO ADM SS LABORATORYOrdered By: SYSTEM SYSTEM on 03-20-2022 GFR 47 ml/min/1.73sqm Invalid Interpretation Code AO Chemistry S GFR Non- 39 ml/min/1.73sqm Invalid Interpretation Code AO Chemistry S LABORATORYOrdered By: Geoffrey Tellez on 03-17-2022 Calcium [Mass/Vol] 9.2 mg/dL Invalid Interpretation Code 8.4 - 10.2 mg/dL AO ADM SS Chloride [Moles/Vol] 103 mmol/L Invalid Interpretation Code 98 - 107 mmol/L AO ADM SS CO2 [Moles/Vol] 30 mmol/L Invalid Interpretation Code 23 - 31 mmol/L AO ADM SS Creatinine [Mass/Vol] 1.20 mg/dL Invalid Interpretation Code 0.55 - 1.02 mg/dL AO ADM SS Electrolyte Balance 8.0 mEq/L Invalid Interpretation Code 4.0 - 15.0 mEq/L AO ADM SS Glucose [Mass/Vol] 222 mg/dL Invalid Interpretation Code 80 - 115 mg/dL AO ADM SS Natriuretic peptide.B prohormone N-Terminal [Mass/Vol] 1103 pg/mL Invalid Interpretation Code 0 - 125 pg/mL AO ADM SS Potassium [Moles/Vol] 5.1 mmol/L Invalid Interpretation Code 3.5 - 5.1 mmol/L AO ADM SS Sodium [Moles/Vol] 141 mmol/L Invalid Interpretation Code 136 - 145 mmol/L AO ADM SS Urea nitrogen [Mass/Vol] 30 mg/dL Invalid Interpretation Code 7 - 18 mg/dL AO ADM SS Urea nitrogen/Creatinine [Mass ratio] 25 ratio Invalid Interpretation Code 7 - 27 ratio AO ADM SS LABORATORYOrdered By: SYSTEM SYSTEM on 03-17-2022 GFR 54 ml/min/1.73sqm Invalid Interpretation Code AO Chemistry S GFR Non- 45 ml/min/1.73sqm Invalid Interpretation Code AO Chemistry S LABORATORYOrdered By: Ju Sharp on 03-06-2022 Calcium [Mass/Vol] 9.6 mg/dL Invalid Interpretation Code 8.4 - 10.2 mg/dL AO ADM SS Chloride [Moles/Vol] 103 mmol/L Invalid Interpretation Code 98 - 107 mmol/L AO ADM SS Cholesterol [Mass/Vol] 111 mg/dL Invalid Interpretation Code 0 - 200 mg/dL AO ADM SS Cholesterol in HDL [Mass/Vol] 38 mg/dL Invalid Interpretation Code 40 - 60 mg/dL AO ADM SS Cholesterol in LDL [Mass/Vol] 39 mg/dL Invalid Interpretation Code 0 - 130 mg/dL AO ADM SS CO2 [Moles/Vol] 29 mmol/L Invalid Interpretation Code 23 - 31 mmol/L AO ADM SS Creatinine [Mass/Vol] 1.26 mg/dL Invalid Interpretation Code 0.55 - 1.02 mg/dL AO ADM SS Electrolyte Balance 9.0 mEq/L Invalid Interpretation Code 4.0 - 15.0 mEq/L AO ADM SS Glucose [Mass/Vol] 149 mg/dL Invalid Interpretation Code 80 - 115 mg/dL AO ADM SS Natriuretic peptide.B prohormone N-Terminal [Mass/Vol] 1506 pg/mL Invalid Interpretation Code 0 - 125 pg/mL AO ADM SS Potassium [Moles/Vol] 5.0 mmol/L Invalid Interpretation Code 3.5 - 5.1 mmol/L AO ADM SS Sodium [Moles/Vol] 141 mmol/L Invalid Interpretation Code 136 - 145 mmol/L AO ADM SS Triglyceride [Mass/Vol] 172 mg/dL Invalid Interpretation Code 0 - 150 mg/dL AO ADM SS Urea nitrogen [Mass/Vol] 26 mg/dL Invalid Interpretation Code 7 - 18 mg/dL AO ADM SS Urea nitrogen/Creatinine [Mass ratio] 21 ratio Invalid Interpretation Code 7 - 27 ratio AO ADM SS LABORATORYOrdered By: SYSTEM SYSTEM on 03-06-2022 GFR 51 ml/min/1.73sqm Invalid Interpretation Code AO Chemistry S GFR Non- 42 ml/min/1.73sqm Invalid Interpretation Code AO Chemistry S LABORATORYOrdered By: Ju Griffin on 03-03-2022 Calcium [Mass/Vol] 8.9 mg/dL Invalid Interpretation Code 8.4 - 10.2 mg/dL AO ADM SS Chloride [Moles/Vol] 106 mmol/L Invalid Interpretation Code 98 - 107 mmol/L AO ADM SS CO2 [Moles/Vol] 29 mmol/L Invalid Interpretation Code 23 - 31 mmol/L AO ADM SS Creatinine [Mass/Vol] 1.19 mg/dL Invalid Interpretation Code 0.55 - 1.02 mg/dL AO ADM SS Electrolyte Balance 6.0 mEq/L Invalid Interpretation Code 4.0 - 15.0 mEq/L AO ADM SS Glucose [Mass/Vol] 106 mg/dL Invalid Interpretation Code 80 - 115 mg/dL AO ADM SS Natriuretic peptide.B prohormone N-Terminal [Mass/Vol] 1548 pg/mL Invalid Interpretation Code 0 - 125 pg/mL AO ADM SS Potassium [Moles/Vol] 5.0 mmol/L Invalid Interpretation Code 3.5 - 5.1 mmol/L AO ADM SS Sodium [Moles/Vol] 141 mmol/L Invalid Interpretation Code 136 - 145 mmol/L AO ADM SS Urea nitrogen [Mass/Vol] 30 mg/dL Invalid Interpretation Code 7 - 18 mg/dL AO ADM SS Urea nitrogen/Creatinine [Mass ratio] 25 ratio Invalid Interpretation Code 7 - 27 ratio AO ADM SS LABORATORYOrdered By: SYSTEM SYSTEM on 03-03-2022 GFR 55 ml/min/1.73sqm Invalid Interpretation Code AO Chemistry S GFR Non- 45 ml/min/1.73sqm Invalid Interpretation Code AO Chemistry S LABORATORYOrdered By: Geoffrey Tellez on 02-24-2022 Calcium [Mass/Vol] 9.7 mg/dL Invalid Interpretation Code 8.4 - 10.2 mg/dL AO ADM SS Chloride [Moles/Vol] 100 mmol/L Invalid Interpretation Code 98 - 107 mmol/L AO ADM SS CO2 [Moles/Vol] 29 mmol/L Invalid Interpretation Code 23 - 31 mmol/L AO ADM SS Creatinine [Mass/Vol] 1.70 mg/dL Invalid Interpretation Code 0.55 - 1.02 mg/dL AO ADM SS Electrolyte Balance 6.0 mEq/L Invalid Interpretation Code 4.0 - 15.0 mEq/L AO ADM SS Glucose [Mass/Vol] 226 mg/dL Invalid Interpretation Code 80 - 115 mg/dL AO ADM SS Natriuretic peptide.B prohormone N-Terminal [Mass/Vol] 961 pg/mL Invalid Interpretation Code 0 - 125 pg/mL AO ADM SS Potassium [Moles/Vol] 6.0 mmol/L Invalid Interpretation Code 3.5 - 5.1 mmol/L AO ADM SS Sodium [Moles/Vol] 135 mmol/L Invalid Interpretation Code 136 - 145 mmol/L AO ADM SS Urea nitrogen [Mass/Vol] 43 mg/dL Invalid Interpretation Code 7 - 18 mg/dL AO ADM SS Urea nitrogen/Creatinine [Mass ratio] 25 ratio Invalid Interpretation Code 7 - 27 ratio AO ADM SS LABORATORYOrdered By: SYSTEM SYSTEM on 02-24-2022 GFR 36 ml/min/1.73sqm Invalid Interpretation Code AO Chemistry S GFR Non- 30 ml/min/1.73sqm Invalid Interpretation Code AO Chemistry S LABORATORYOrdered By: Cheli Kuo on 02-04-2022 Bilirubin.direct [Mass/Vol] 0.2 mg/dL Invalid Interpretation Code 0.0 - 0.2 mg/dL AO ADM SS Cholesterol [Mass/Vol] 112 mg/dL Invalid Interpretation Code 0 - 200 mg/dL AO ADM SS Cholesterol in HDL [Mass/Vol] 38 mg/dL Invalid Interpretation Code 40 - 60 mg/dL AO ADM SS Cholesterol in LDL [Mass/Vol] 29 mg/dL Invalid Interpretation Code 0 - 130 mg/dL AO ADM SS Triglyceride [Mass/Vol] 223 mg/dL Invalid Interpretation Code 0 - 150 mg/dL AO ADM SS Albumin BCP dye [Mass/Vol] 3.9 G/dL Invalid Interpretation Code 3.4 - 4.8 G/dL AO ADM SS Albumin/Globulin [Mass ratio] 1.1 {ratio} Invalid Interpretation Code 1.1 - 2.5 ratio AO ADM SS ALP [Catalytic activity/Vol] 62 U/L Invalid Interpretation Code 40 - 135 U/L AO ADM SS ALT With P-5'-P [Catalytic activity/Vol] 23 U/L Invalid Interpretation Code 14 - 59 U/L AO ADM SS AST With P-5'-P [Catalytic activity/Vol] 28 U/L Invalid Interpretation Code 10 - 40 U/L AO ADM SS Basophil, Absolute 0.00 103/mcL Invalid Interpretation Code 0.00 - 0.19 10^3/mcL AO Auto Heme SS Basophils/100 WBC (Bld) 0.4 % Invalid Interpretation Code 0.0 - 2.5 % AO Auto Heme SS Bilirubin [Mass/Vol] 0.4 mg/dL Invalid Interpretation Code 0.2 - 1.0 mg/dL AO ADM SS Calcium [Mass/Vol] 9.2 mg/dL Invalid Interpretation Code 8.4 - 10.2 mg/dL AO ADM SS Chloride [Moles/Vol] 103 mmol/L Invalid Interpretation Code 98 - 107 mmol/L AO ADM SS CO2 [Moles/Vol] 31 mmol/L Invalid Interpretation Code 23 - 31 mmol/L AO ADM SS Creatinine [Mass/Vol] 1.36 mg/dL Invalid Interpretation Code 0.55 - 1.02 mg/dL AO ADM SS Electrolyte Balance 8.0 mEq/L Invalid Interpretation Code 4.0 - 15.0 mEq/L AO ADM SS Eosinophil, Absolute 0.50 103/mcL Invalid Interpretation Code 0.00 - 0.40 10^3/mcL AO Auto Heme SS Eosinophils/100 WBC (Bld) 7.5 % Invalid Interpretation Code 0.0 - 7.0 % AO Auto Heme SS Erythrocyte distribution width (RBC) [Ratio] 15.0 % Invalid Interpretation Code 11.5 - 14.5 % AO Auto Heme SS Globulin 3.5 G/dL Invalid Interpretation Code AO ADM SS Glucose [Mass/Vol] 232 mg/dL Invalid Interpretation Code 80 - 115 mg/dL AO ADM SS Hematocrit (Bld) [Volume fraction] 34.4 % Invalid Interpretation Code 37.0 - 47.0 % AO Auto Heme SS Hemoglobin (Bld) [Mass/Vol] 11.6 G/dL Invalid Interpretation Code 12.0 - 16.0 G/dL AO Auto Heme SS Lymphocyte, Absolute 2.20 103/mcL Invalid Interpretation Code 0.77 - 3.85 10^3/mcL AO Auto Heme SS Lymphocytes/100 WBC (Bld) 34.4 % Invalid Interpretation Code 10.0 - 50.0 % AO Auto Heme SS MCH (RBC) [Entitic mass] 29.8 pg Invalid Interpretation Code 27.0 - 31.2 pg AO Auto Heme SS MCHC (RBC) [Mass/Vol] 33.7 G/dL Invalid Interpretation Code 33.0 - 37.0 G/dL AO Auto Heme SS MCV (RBC) [Entitic vol] 88.4 fL Invalid Interpretation Code 80.0 - 94.0 fL AO Auto Heme SS Monocyte, Absolute 0.40 103/mcL Invalid Interpretation Code 0.15 - 1.00 10^3/mcL AO Auto Heme SS Monocytes/100 WBC (Bld) 6.7 % Invalid Interpretation Code 1.7 - 13.0 % AO Auto Heme SS Neutrophil, Absolute 3.20 103/mcL Invalid Interpretation Code 2.85 - 6.16 10^3/mcL AO Auto Heme SS Neutrophils/100 WBC (Bld) 51.0 % Invalid Interpretation Code 37.0 - 80.0 % AO Auto Heme SS Platelet mean volume (Bld) [Entitic vol] 8.9 fL Invalid Interpretation Code 7.4 - 10.4 fL AO Auto Heme SS Platelets (Bld) [#/Vol] 182 103/mcL Invalid Interpretation Code 130 - 400 10^3/mcL AO Auto Heme SS Potassium [Moles/Vol] 4.9 mmol/L Invalid Interpretation Code 3.5 - 5.1 mmol/L AO ADM SS Protein [Mass/Vol] 7.4 G/dL Invalid Interpretation Code 6.4 - 8.2 G/dL AO ADM SS RBC (Bld) [#/Vol] 3.89 106/mcL Invalid Interpretation Code 4.20 - 5.40 10^6/mcL AO Auto Heme SS Sodium [Moles/Vol] 142 mmol/L Invalid Interpretation Code 136 - 145 mmol/L AO ADM SS Urea nitrogen [Mass/Vol] 35 mg/dL Invalid Interpretation Code 7 - 18 mg/dL AO ADM SS Urea nitrogen/Creatinine [Mass ratio] 26 ratio Invalid Interpretation Code 7 - 27 ratio AO ADM SS WBC (Bld) [#/Vol] 6.40 103/mcL Invalid Interpretation Code 4.60 - 10.80 10^3/mcL AO Auto Heme SS LABORATORYOrdered By: SYSTEM SYSTEM on 02-04-2022 GFR 47 ml/min/1.73sqm Invalid Interpretation Code AO Chemistry S GFR Non- 39 ml/min/1.73sqm Invalid Interpretation Code AO Chemistry S LABORATORYOrdered By: Ju Griffin on 01-03-2022 Calcium [Mass/Vol] 9.4 mg/dL Invalid Interpretation Code 8.4 - 10.2 mg/dL AO ADM SS Chloride [Moles/Vol] 105 mmol/L Invalid Interpretation Code 98 - 107 mmol/L AO ADM SS CO2 [Moles/Vol] 30 mmol/L Invalid Interpretation Code 23 - 31 mmol/L AO ADM SS Creatinine [Mass/Vol] 1.14 mg/dL Invalid Interpretation Code 0.55 - 1.02 mg/dL AO ADM SS Electrolyte Balance 9.0 mEq/L Invalid Interpretation Code 4.0 - 15.0 mEq/L AO ADM SS Glucose [Mass/Vol] 113 mg/dL Invalid Interpretation Code 80 - 115 mg/dL AO ADM SS Potassium [Moles/Vol] 5.1 mmol/L Invalid Interpretation Code 3.5 - 5.1 mmol/L AO ADM SS Sodium [Moles/Vol] 144 mmol/L Invalid Interpretation Code 136 - 145 mmol/L AO ADM SS Urea nitrogen [Mass/Vol] 28 mg/dL Invalid Interpretation Code 7 - 18 mg/dL AO ADM SS Urea nitrogen/Creatinine [Mass ratio] 25 ratio Invalid Interpretation Code 7 - 27 ratio AO ADM SS LABORATORYOrdered By: SYSTEM SYSTEM on 01-03-2022 GFR 57 ml/min/1.73sqm Invalid Interpretation Code AO Chemistry S GFR Non- 47 ml/min/1.73sqm Invalid Interpretation Code AO Chemistry S LABORATORYOrdered By: Geoffrey Tellez on 12-29-2021 Calcium [Mass/Vol] 9.2 mg/dL Invalid Interpretation Code 8.4 - 10.2 mg/dL AO ADM SS Chloride [Moles/Vol] 105 mmol/L Invalid Interpretation Code 98 - 107 mmol/L AO ADM SS CO2 [Moles/Vol] 31 mmol/L Invalid Interpretation Code 23 - 31 mmol/L AO ADM SS Creatinine [Mass/Vol] 1.15 mg/dL Invalid Interpretation Code 0.55 - 1.02 mg/dL AO ADM SS Electrolyte Balance 6.0 mEq/L Invalid Interpretation Code 4.0 - 15.0 mEq/L AO ADM SS Glucose [Mass/Vol] 136 mg/dL Invalid Interpretation Code 80 - 115 mg/dL AO ADM SS Potassium [Moles/Vol] 4.7 mmol/L Invalid Interpretation Code 3.5 - 5.1 mmol/L AO ADM SS Sodium [Moles/Vol] 142 mmol/L Invalid Interpretation Code 136 - 145 mmol/L AO ADM SS Urea nitrogen [Mass/Vol] 25 mg/dL Invalid Interpretation Code 7 - 18 mg/dL AO ADM SS Urea nitrogen/Creatinine [Mass ratio] 22 ratio Invalid Interpretation Code 7 - 27 ratio AO ADM SS LABORATORYOrdered By: SYSTEM SYSTEM on 12-29-2021 GFR 57 ml/min/1.73sqm Invalid Interpretation Code AO Chemistry S GFR Non- 47 ml/min/1.73sqm Invalid Interpretation Code AO Chemistry S LABORATORYOrdered By: Nick Bhtat on 12-25-2021 Blood Glucose Testing Reason Routine (12/25/21 10:58 AM) [facility] Work Phone: Glucose [Mass/Vol] 159 mg/dL Invalid Interpretation Code 82 - 115 mg/dL [facility] Work Phone: Blood Glucose Testing Reason Routine (12/25/21 6:53 AM) [facility] Work Phone: Glucose [Mass/Vol] 112 mg/dL Invalid Interpretation Code 82 - 115 mg/dL [facility] Work Phone: LABORATORYOrdered By: [employer] SYSTEM on 12-25-2021 Base excess Calc (BldMV) [Moles/Vol] 7.0 mEq/L Invalid Interpretation Code 4.0 - 15.0 mEq/L ADM SS Basophils (Bld) [#/Vol] 0.00 103/mcL Invalid Interpretation Code 0.00 - 0.27 10^3/mcL AH Remisol SS Basophils/100 WBC (Bld) 0.7 % Invalid Interpretation Code 0.0 - 2.5 % AH Remisol SS Calcium [Mass/Vol] 9.8 mg/dL Invalid Interpretation Code 8.4 - 10.1 mg/dL AH ADM SS Chloride [Moles/Vol] 104 mmol/L Invalid Interpretation Code 98 - 110 mEq/L AH ADM SS CO2 [Moles/Vol] 29 mmol/L Invalid Interpretation Code 22 - 32 mEq/L AH ADM SS Creatinine [Mass/Vol] 1.16 mg/dL Invalid Interpretation Code 0.50 - 1.20 mg/dL AH ADM SS Eosinophils (Bld) [#/Vol] 0.20 103/mcL Invalid Interpretation Code 0.00 - 0.65 10^3/mcL AH Remisol SS Eosinophils/100 WBC (Bld) 3.1 % Invalid Interpretation Code 0.0 - 6.0 % AH Remisol SS Erythrocyte distribution width (RBC) [Ratio] 15.3 % Invalid Interpretation Code 11.5 - 15.5 % AH Remisol SS GFR/1.73 sq M.predicted among blacks MDRD (S/P/Bld) [Vol rate/Area] 56 ml/min/1.73sqm Invalid Interpretation Code AH ADM SS GFR/1.73 sq M.predicted among non-blacks MDRD (S/P/Bld) [Vol rate/Area] 46 ml/min/1.73sqm Invalid Interpretation Code AH ADM SS Glucose [Mass/Vol] 129 mg/dL Invalid Interpretation Code 82 - 115 mg/dL AH ADM SS Hematocrit (Bld) [Volume fraction] 32.3 % Invalid Interpretation Code 34.0 - 46.0 % AH Remisol SS Hemoglobin (Bld) [Mass/Vol] 11.0 G/dL Invalid Interpretation Code 12.0 - 16.0 G/dL AH Remisol SS Lymphocytes (Bld) [#/Vol] 1.90 103/mcL Invalid Interpretation Code 0.90 - 4.32 10^3/mcL AH Remisol SS Lymphocytes/100 WBC (Bld) 38.9 % Invalid Interpretation Code 20.0 - 40.0 % AH Remisol SS MCH (RBC) [Entitic mass] 30.0 pg Invalid Interpretation Code 27.0 - 33.0 pg AH Remisol SS MCHC (RBC) [Mass/Vol] 34.2 G/dL Invalid Interpretation Code 32.0 - 36.0 G/dL AH Remisol SS MCV (RBC) [Entitic vol] 87.6 fL Invalid Interpretation Code 80.0 - 99.0 fL AH Remisol SS Monocytes (Bld) [#/Vol] 0.50 103/mcL Invalid Interpretation Code 0.09 - 1.40 10^3/mcL AH Remisol SS Monocytes/100 WBC (Bld) 9.8 % Invalid Interpretation Code 2.0 - 13.0 % AH Remisol SS Neutrophils (Bld) [#/Vol] 2.30 103/mcL Invalid Interpretation Code 2.25 - 8.10 10^3/mcL AH Remisol SS Neutrophils/100 WBC (Bld) 47.5 % Invalid Interpretation Code 50.0 - 75.0 % AH Remisol SS Platelet mean volume (Bld) [Entitic vol] 9.5 fL Invalid Interpretation Code 6.6 - 10.5 fL AH Remisol SS Platelets (Bld) [#/Vol] 117 103/mcL Invalid Interpretation Code 150 - 450 10^3/mcL AH Remisol SS Potassium [Moles/Vol] 3.7 mmol/L Invalid Interpretation Code 3.5 - 5.0 mEq/L AH ADM SS RBC (Bld) [#/Vol] 3.68 106/mcL Invalid Interpretation Code 4.10 - 5.30 10^6/mcL AH Remisol SS Sodium [Moles/Vol] 140 mmol/L Invalid Interpretation Code 136 - 145 mEq/L AH ADM SS Urea nitrogen [Mass/Vol] 23.0 mg/dL Invalid Interpretation Code 8.0 - 22.0 mg/dL AH ADM SS Urea nitrogen/Creatinine [Mass ratio] 19.8 ratio Invalid Interpretation Code 10.0 - 22.0 ratio AH ADM SS WBC (Bld) [#/Vol] 4.80 103/mcL Invalid Interpretation Code 4.50 - 10.80 10^3/mcL AH Remisol SS LABORATORYOrdered By: Madyson Dejesus on 12-25-2021 Cholesterol [Mass/Vol] 99 mg/dL Invalid Interpretation Code 50 - 199 mg/dL AH ADM SS Cholesterol in HDL [Mass/Vol] 26 mg/dL Invalid Interpretation Code 40 - 59 mg/dL AH ADM SS Cholesterol in LDL [Mass/Vol] 37 mg/dL Invalid Interpretation Code 0 - 129 mg/dL AH ADM SS Triglyceride [Mass/Vol] 179 mg/dL Invalid Interpretation Code 3 - 149 mg/dL AH ADM SS LABORATORYOrdered By: Shanika Malave on 12-24-2021 Blood Glucose Testing Reason Routine (12/24/21 9:09 PM) [facility] Work Phone: Glucose [Mass/Vol] 151 mg/dL Invalid Interpretation Code 82 - 115 mg/dL [facility] Work Phone: LABORATORYOrdered By: SYSTEM SYSTEM on 12-24-2021 Troponin I.cardiac DL <= 0.01 ng/mL [Mass/Vol] 63.97 ng/L Invalid Interpretation Code 0.00 - 34.00 ng/L AH ADM SS Albumin [Mass/Vol] 3.0 G/dL Invalid Interpretation Code 3.2 - 4.8 G/dL AH ADM SS Albumin/Globulin [Mass ratio] 0.9 {ratio} Invalid Interpretation Code 0.9 - 1.6 ratio ADM SS ALP [Catalytic activity/Vol] 54 U/L Invalid Interpretation Code 38 - 126 U/L AH ADM SS ALT [Catalytic activity/Vol] 13 U/L Invalid Interpretation Code 10 - 49 U/L AH ADM SS AST [Catalytic activity/Vol] 9 U/L Invalid Interpretation Code 8 - 34 U/L ADM SS Base excess Calc (BldMV) [Moles/Vol] 8.0 mEq/L Invalid Interpretation Code 4.0 - 15.0 mEq/L AH ADM SS Basophils (Bld) [#/Vol] 0.00 103/mcL Invalid Interpretation Code 0.00 - 0.27 10^3/mcL AH Remisol SS Basophils/100 WBC (Bld) 0.3 % Invalid Interpretation Code 0.0 - 2.5 % AH Remisol SS Bilirubin [Mass/Vol] 0.6 mg/dL Invalid Interpretation Code 0.2 - 1.2 mg/dL AH ADM SS Calcium [Mass/Vol] 8.7 mg/dL Invalid Interpretation Code 8.4 - 10.1 mg/dL AH ADM SS Chloride [Moles/Vol] 107 mmol/L Invalid Interpretation Code 98 - 110 mEq/L ADM SS CO2 [Moles/Vol] 24 mmol/L Invalid Interpretation Code 22 - 32 mEq/L AH ADM SS Creatinine [Mass/Vol] 0.88 mg/dL Invalid Interpretation Code 0.50 - 1.20 mg/dL AH ADM SS CRP [Mass/Vol] 0.5 mg/dL Invalid Interpretation Code 0.0 - 1.0 mg/dL AH ADM SS Eosinophils (Bld) [#/Vol] 0.10 103/mcL Invalid Interpretation Code 0.00 - 0.65 10^3/mcL AH Remisol SS Eosinophils/100 WBC (Bld) 0.8 % Invalid Interpretation Code 0.0 - 6.0 % AH Remisol SS Erythrocyte distribution width (RBC) [Ratio] 14.9 % Invalid Interpretation Code 11.5 - 15.5 % AH Remisol SS GFR/1.73 sq M.predicted among blacks MDRD (S/P/Bld) [Vol rate/Area] ml/min/1.73sqm Invalid Interpretation Code AH ADM SS GFR/1.73 sq M.predicted among non-blacks MDRD (S/P/Bld) [Vol rate/Area] ml/min/1.73sqm Invalid Interpretation Code ADM SS Globulin (S) [Mass/Vol] 3.5 G/dL Invalid Interpretation Code 1.5 - 3.8 G/dL AH ADM SS Glucose [Mass/Vol] 133 mg/dL Invalid Interpretation Code 82 - 115 mg/dL AH ADM SS HbA1c (Bld) [Mass fraction] 6.3 % Invalid Interpretation Code 4.0 - 6.0 % Auto Chem SS Hematocrit (Bld) [Volume fraction] 32.2 % Invalid Interpretation Code 34.0 - 46.0 % Remisol SS Hemoglobin (Bld) [Mass/Vol] 10.8 G/dL Invalid Interpretation Code 12.0 - 16.0 G/dL AH Remisol SS Lymphocytes (Bld) [#/Vol] 1.10 103/mcL Invalid Interpretation Code 0.90 - 4.32 10^3/mcL AH Remisol SS Lymphocytes/100 WBC (Bld) 14.4 % Invalid Interpretation Code 20.0 - 40.0 % Remisol SS Magnesium [Mass/Vol] 1.7 mg/dL Invalid Interpretation Code 1.6 - 2.4 mg/dL AH ADM SS MCH (RBC) [Entitic mass] 29.7 pg Invalid Interpretation Code 27.0 - 33.0 pg AH Remisol SS MCHC (RBC) [Mass/Vol] 33.6 G/dL Invalid Interpretation Code 32.0 - 36.0 G/dL AH Remisol SS MCV (RBC) [Entitic vol] 88.4 fL Invalid Interpretation Code 80.0 - 99.0 fL AH Remisol SS Monocytes (Bld) [#/Vol] 0.30 103/mcL Invalid Interpretation Code 0.09 - 1.40 10^3/mcL AH Remisol SS Monocytes/100 WBC (Bld) 4.4 % Invalid Interpretation Code 2.0 - 13.0 % AH Remisol SS Natriuretic peptide.B prohormone N-Terminal [Mass/Vol] 41563 pg/mL Invalid Interpretation Code 0 - 900 pg/mL AH ADM SS Neutrophils (Bld) [#/Vol] 6.10 103/mcL Invalid Interpretation Code 2.25 - 8.10 10^3/mcL AH Remisol SS Neutrophils/100 WBC (Bld) 80.1 % Invalid Interpretation Code 50.0 - 75.0 % Remisol SS Phosphate [Mass/Vol] 3.3 mg/dL Invalid Interpretation Code 2.5 - 4.5 mg/dL AH ADM SS Comment on above: Result Comment: Spec imen slightly lipemic. Results may be falsely decreased. Platelet mean volume (Bld) [Entitic vol] 9.5 fL Invalid Interpretation Code 6.6 - 10.5 fL Remisol SS Platelets (Bld) [#/Vol] 115 103/mcL Invalid Interpretation Code 150 - 450 10^3/mcL Remisol SS Potassium [Moles/Vol] 3.8 mmol/L Invalid Interpretation Code 3.5 - 5.0 mEq/L ADM SS Comment on above: Result Comment: Spec imen slightly hemolyzed. Protein [Mass/Vol] 6.5 G/dL Invalid Interpretation Code 6.0 - 8.5 G/dL ADM SS RBC (Bld) [#/Vol] 3.64 106/mcL Invalid Interpretation Code 4.10 - 5.30 10^6/mcL Remisol SS Sodium [Moles/Vol] 139 mmol/L Invalid Interpretation Code 136 - 145 mEq/L ADM SS Troponin I.cardiac DL <= 0.01 ng/mL [Mass/Vol] 47.46 ng/L Invalid Interpretation Code 0.00 - 34.00 ng/L AH ADM SS TSH Qn 3.193 mIU/mL Invalid Interpretation Code 0.550 - 4.780 mIU/mL AH ADM SS Urea nitrogen [Mass/Vol] 18.0 mg/dL Invalid Interpretation Code 8.0 - 22.0 mg/dL AH ADM SS Urea nitrogen/Creatinine [Mass ratio] 20.5 ratio Invalid Interpretation Code 10.0 - 22.0 ratio AH ADM SS WBC (Bld) [#/Vol] 7.60 103/mcL Invalid Interpretation Code 4.50 - 10.80 10^3/mcL AH Remisol SS LABORATORYOrdered By: Birdie Nieves on 12-24-2021 Calcium.ionized (Bld) [Mass/Vol] 1.07 mmol/L Invalid Interpretation Code 1.12 - 1.32 mmol/L AH Auto Chem SS LABORATORYOrdered By: Je Robles on 12-24-2021 ESR 15 minute reading (Bld) [Velocity] 22 mm/hr Invalid Interpretation Code 0 - 30 mm/hr AH Manual Heme SS LABORATORYOrdered By: Libertad Corral on 12-24-2021 Appearance (U) Clear (12/24/21 2:54 AM) Invalid Interpretation Code Clear AH Auto Urine SS Bilirubin Ql (U) Negative (12/24/21 2:54 AM) Invalid Interpretation Code Neg-Trace AH Auto Urine SS Color (U) Yellow (12/24/21 2:54 AM) Invalid Interpretation Code AH Auto Urine SS Glucose Test strip (U) [Mass/Vol] Negative Invalid Interpretation Code Negativemg /dL AH Auto Urine SS Hemoglobin Auto test strip (U) [Mass/Vol] Negative (12/24/21 2:54 AM) Invalid Interpretation Code Neg-Trace AH Auto Urine SS Ketones Ql (U) Negative Invalid Interpretation Code Neg-Tracem g/dL AH Auto Urine SS UA Leuk Est Negative (12/24/21 2:54 AM) Invalid Interpretation Code Negative AH Auto Urine SS UA Nitrite Negative (12/24/21 2:54 AM) Invalid Interpretation Code Negative AH Auto Urine SS UA pH 6.0 (12/24/21 2:54 AM) Invalid Interpretation Code 5.0 - 8.0 AH Auto Urine SS UA Protein Negative Invalid Interpretation Code Negativemg /dL AH Auto Urine SS UA Spec Grav >=1.030 *ABN* (12/24/21 2:54 AM) Invalid Interpretation Code 1.006-1.02 9 AH Auto Urine SS UA Specimen Type Clean Catch (12/24/21 2:54 AM) Invalid Interpretation Code AH Auto Urine SS UA Urobilinogen 0.2 E.U./dL Invalid Interpretation Code 0.2-1.0E.U ./dL AH Auto Urine SS LABORATORYOrdered By: Ellie Alfonso on 12-23-2021 ADMITTED TO INTENSIVE CARE UNIT FOR CONDITION OF INTEREST:FIND:PT:^MATT ENT:ORD: No (12/23/21 9:48 PM) Invalid Interpretation Code AO Auto Urine SS EMPLOYED IN A HEALTHCARE SETTING:FIND:PT:^PATIE NT:ORD: No (12/23/21 9:48 PM) Invalid Interpretation Code AO Auto Urine SS Fibrin D-dimer DDU (PPP) [Mass/Vol] 583 ng/mL D-DU Invalid Interpretation Code 0 - 230 ng/mL D-DU AO Coag SS FIRST TEST FOR CONDITION OF INTEREST:FIND:PT:^MATT ENT:ORD: No (12/23/21 9:48 PM) Invalid Interpretation Code AO Auto Urine SS HAS SYMPTOMS RELATED TO CONDITION OF INTEREST:FIND:PT:^MATT ENT:ORD: Yes (12/23/21 9:48 PM) Invalid Interpretation Code AO Auto Urine SS Illness or injury onset date and time [id number] Invalid Interpretation Code AO Auto Urine SS Patient was hospitalized because of this condition Yes (12/23/21 9:48 PM) Invalid Interpretation Code AO Auto Urine SS status Not (12/23/21 9:48 PM) Invalid Interpretation Code AO Auto Urine SS RESIDES IN A CONGREGATE CARE SETTING:FIND:PT:^PATIE NT:ORD: No (12/23/21 9:48 PM) Invalid Interpretation Code AO Auto Urine SS SARS-CoV-2 (COVID-19) RNA ENRIQUE+probe Ql (Resp) Negative (12/23/21 9:48 PM) Invalid Interpretation Code Negative AO Auto Urine SS SARS-CoV-2 (COVID-19) RNA ENRQIUE+probe Ql (Unsp spec) Negative results do not preclude SARS-CoV-2 infection and should not be used as the sole basis for patient management decisions. Negative results must be combined with clinical observations, patient history, and epidemiological information.There is a risk of false negative values resulting from improperly collected, transported, or handled specimens.There is a risk of false negative values due to the presence of sequence variants in the pathogen targets of the assay, procedural errors, amplification inhibitors in specimens, or inadequate numbers of organisms for amplification.[facility] SARS-CoV-2 Assay is a Real-Time reverse-transcriptase polymerase chain reaction (RT-PCR) based qualitative in vitro diagnostic test intended for the qualitative detection of nucleic acid from the SARS-CoV-2 in nasopharyngeal swab specimens collected from individuals suspected of COVID-19 by their healthcare provider. Testing is limited to laboratories certified under the Clinical Laboratory Improvement Amendments of 1988 (CLIA), 42 U.S.C. 263a, to perform moderate and high complexity tests. Invalid Interpretation Code AO Auto Urine SS Calcium [Mass/Vol] 8.6 mg/dL Invalid Interpretation Code 8.4 - 10.2 mg/dL AO ADM SS Chloride [Moles/Vol] 105 mmol/L Invalid Interpretation Code 98 - 107 mmol/L AO ADM SS CO2 [Moles/Vol] 26 mmol/L Invalid Interpretation Code 23 - 31 mmol/L AO ADM SS Creatinine [Mass/Vol] 1.11 mg/dL Invalid Interpretation Code 0.55 - 1.02 mg/dL AO ADM SS Electrolyte Balance 10.0 mEq/L Invalid Interpretation Code 4.0 - 15.0 mEq/L AO ADM SS Glucose [Mass/Vol] 117 mg/dL Invalid Interpretation Code 80 - 115 mg/dL AO ADM SS Natriuretic peptide.B prohormone N-Terminal [Mass/Vol] 8578 pg/mL Invalid Interpretation Code 0 - 125 pg/mL AO ADM SS Potassium [Moles/Vol] 4.0 mmol/L Invalid Interpretation Code 3.5 - 5.1 mmol/L AO ADM SS Sodium [Moles/Vol] 141 mmol/L Invalid Interpretation Code 136 - 145 mmol/L AO ADM SS Troponin I.cardiac DL <= 0.01 ng/mL [Mass/Vol] 41.9 ng/L Invalid Interpretation Code 0.0 - 51.4 ng/L AO ADM SS Urea nitrogen [Mass/Vol] 19 mg/dL Invalid Interpretation Code 7 - 18 mg/dL AO ADM SS Urea nitrogen/Creatinine [Mass ratio] 17 ratio Invalid Interpretation Code 7 - 27 ratio AO ADM SS LABORATORYOrdered By: SYSTEM SYSTEM on 12-23-2021 GFR 59 ml/min/1.73sqm Invalid Interpretation Code AO Chemistry S GFR Non- 49 ml/min/1.73sqm Invalid Interpretation Code AO Chemistry S LABORATORYOrdered By: Lesley Jimenez on 12-23-2021 Basophil, Absolute 0.10 103/mcL Invalid Interpretation Code 0.00 - 0.19 10^3/mcL AO Auto Heme SS Basophils/100 WBC (Bld) 1.0 % Invalid Interpretation Code 0.0 - 2.5 % AO Auto Heme SS Eosinophil, Absolute 0.10 103/mcL Invalid Interpretation Code 0.00 - 0.40 10^3/mcL AO Auto Heme SS Eosinophils/100 WBC (Bld) 2.4 % Invalid Interpretation Code 0.0 - 7.0 % AO Auto Heme SS Erythrocyte distribution width (RBC) [Ratio] 15.1 % Invalid Interpretation Code 11.5 - 14.5 % AO Auto Heme SS Hematocrit (Bld) [Volume fraction] 32.2 % Invalid Interpretation Code 37.0 - 47.0 % AO Auto Heme SS Hemoglobin (Bld) [Mass/Vol] 10.8 G/dL Invalid Interpretation Code 12.0 - 16.0 G/dL AO Auto Heme SS Lymphocyte, Absolute 2.50 103/mcL Invalid Interpretation Code 0.77 - 3.85 10^3/mcL AO Auto Heme SS Lymphocytes/100 WBC (Bld) 40.3 % Invalid Interpretation Code 10.0 - 50.0 % AO Auto Heme SS MCH (RBC) [Entitic mass] 29.6 pg Invalid Interpretation Code 27.0 - 31.2 pg AO Auto Heme SS MCHC (RBC) [Mass/Vol] 33.5 G/dL Invalid Interpretation Code 33.0 - 37.0 G/dL AO Auto Heme SS MCV (RBC) [Entitic vol] 88.4 fL Invalid Interpretation Code 80.0 - 94.0 fL AO Auto Heme SS Monocyte, Absolute 0.40 103/mcL Invalid Interpretation Code 0.15 - 1.00 10^3/mcL AO Auto Heme SS Monocytes/100 WBC (Bld) 6.3 % Invalid Interpretation Code 1.7 - 13.0 % AO Auto Heme SS Neutrophil, Absolute 3.10 103/mcL Invalid Interpretation Code 2.85 - 6.16 10^3/mcL AO Auto Heme SS Neutrophils/100 WBC (Bld) 50.0 % Invalid Interpretation Code 37.0 - 80.0 % AO Auto Heme SS Platelet mean volume (Bld) [Entitic vol] 9.7 fL Invalid Interpretation Code 7.4 - 10.4 fL AO Auto Heme SS Platelets (Bld) [#/Vol] 152 103/mcL Invalid Interpretation Code 130 - 400 10^3/mcL AO Auto Heme SS RBC (Bld) [#/Vol] 3.64 106/mcL Invalid Interpretation Code 4.20 - 5.40 10^6/mcL AO Auto Heme SS WBC (Bld) [#/Vol] 6.20 103/mcL Invalid Interpretation Code 4.60 - 10.80 10^3/mcL AO Auto Heme SS LABORATORYOrdered By: Geoffrey Tellez on 12-11-2021 Calcium [Mass/Vol] 9.3 mg/dL Invalid Interpretation Code 8.4 - 10.2 mg/dL AO ADM SS Chloride [Moles/Vol] 106 mmol/L Invalid Interpretation Code 98 - 107 mmol/L AO ADM SS CO2 [Moles/Vol] 28 mmol/L Invalid Interpretation Code 23 - 31 mmol/L AO ADM SS Creatinine [Mass/Vol] 1.05 mg/dL Invalid Interpretation Code 0.55 - 1.02 mg/dL AO ADM SS Electrolyte Balance 10.0 mEq/L Invalid Interpretation Code 4.0 - 15.0 mEq/L AO ADM SS Glucose [Mass/Vol] 175 mg/dL Invalid Interpretation Code 80 - 115 mg/dL AO ADM SS Potassium [Moles/Vol] 5.0 mmol/L Invalid Interpretation Code 3.5 - 5.1 mmol/L AO ADM SS Sodium [Moles/Vol] 144 mmol/L Invalid Interpretation Code 136 - 145 mmol/L AO ADM SS Urea nitrogen [Mass/Vol] 19 mg/dL Invalid Interpretation Code 7 - 18 mg/dL AO ADM SS Urea nitrogen/Creatinine [Mass ratio] 18 ratio Invalid Interpretation Code 7 - 27 ratio AO ADM SS LABORATORYOrdered By: SYSTEM SYSTEM on 12-11-2021 GFR 63 ml/min/1.73sqm Invalid Interpretation Code AO Chemistry S GFR Non- 52 ml/min/1.73sqm Invalid Interpretation Code AO Chemistry S LABORATORYOrdered By: Ju Griffin on 12-10-2021 Calcium [Mass/Vol] 9.0 mg/dL Invalid Interpretation Code 8.4 - 10.2 mg/dL AO ADM SS Chloride [Moles/Vol] 105 mmol/L Invalid Interpretation Code 98 - 107 mmol/L AO ADM SS CO2 [Moles/Vol] 28 mmol/L Invalid Interpretation Code 23 - 31 mmol/L AO ADM SS Creatinine [Mass/Vol] 1.01 mg/dL Invalid Interpretation Code 0.55 - 1.02 mg/dL AO ADM SS Electrolyte Balance 9.0 mEq/L Invalid Interpretation Code 4.0 - 15.0 mEq/L AO ADM SS Glucose [Mass/Vol] 133 mg/dL Invalid Interpretation Code 80 - 115 mg/dL AO ADM SS Potassium [Moles/Vol] 4.7 mmol/L Invalid Interpretation Code 3.5 - 5.1 mmol/L AO ADM SS Sodium [Moles/Vol] 142 mmol/L Invalid Interpretation Code 136 - 145 mmol/L AO ADM SS Urea nitrogen [Mass/Vol] 21 mg/dL Invalid Interpretation Code 7 - 18 mg/dL AO ADM SS Urea nitrogen/Creatinine [Mass ratio] 21 ratio Invalid Interpretation Code 7 - 27 ratio AO ADM SS LABORATORYOrdered By: SYSTEM SYSTEM on 12-10-2021 GFR 66 ml/min/1.73sqm Invalid Interpretation Code AO Chemistry S GFR Non- 55 ml/min/1.73sqm Invalid Interpretation Code AO Chemistry S LABORATORYOrdered By: Geoffrey Tellez on 12-09-2021 Calcium [Mass/Vol] 9.1 mg/dL Invalid Interpretation Code 8.4 - 10.2 mg/dL AO ADM SS Chloride [Moles/Vol] 106 mmol/L Invalid Interpretation Code 98 - 107 mmol/L AO ADM SS CO2 [Moles/Vol] 27 mmol/L Invalid Interpretation Code 23 - 31 mmol/L AO ADM SS Creatinine [Mass/Vol] 0.98 mg/dL Invalid Interpretation Code 0.55 - 1.02 mg/dL AO ADM SS Electrolyte Balance 9.0 mEq/L Invalid Interpretation Code 4.0 - 15.0 mEq/L AO ADM SS Glucose [Mass/Vol] 136 mg/dL Invalid Interpretation Code 80 - 115 mg/dL AO ADM SS Potassium [Moles/Vol] 5.2 mmol/L Invalid Interpretation Code 3.5 - 5.1 mmol/L AO ADM SS Sodium [Moles/Vol] 142 mmol/L Invalid Interpretation Code 136 - 145 mmol/L AO ADM SS Urea nitrogen [Mass/Vol] 22 mg/dL Invalid Interpretation Code 7 - 18 mg/dL AO ADM SS Urea nitrogen/Creatinine [Mass ratio] 22 ratio Invalid Interpretation Code 7 - 27 ratio AO ADM SS LABORATORYOrdered By: [employer] SYSTEM on 12-09-2021 GFR 68 ml/min/1.73sqm Invalid Interpretation Code AO Chemistry S GFR Non- 56 ml/min/1.73sqm Invalid Interpretation Code AO Chemistry S LABORATORYOrdered By: Ivania Lott on 12-05-2021 Glucose [Mass/Vol] 169 mg/dL Invalid Interpretation Code 82 - 115 mg/dL [facility] Work Phone: Blood Glucose Testing Reason Routine (12/05/21 8:07 AM) [facility] Work Phone: Glucose [Mass/Vol] 160 mg/dL Invalid Interpretation Code 82 - 115 mg/dL [facility] Work Phone: LABORATORYOrdered By: SYSTEM SYSTEM on 12-05-2021 Basophils (Bld) [#/Vol] 0.00 103/mcL Invalid Interpretation Code 0.00 - 0.27 10^3/mcL Remisol SS Basophils/100 WBC (Bld) 0.7 % Invalid Interpretation Code 0.0 - 2.5 % AH Remisol SS Calcium [Mass/Vol] 8.9 mg/dL Invalid Interpretation Code 8.7 - 10.4 mg/dL ADM SS Chloride [Moles/Vol] 104 mmol/L Invalid Interpretation Code 98 - 110 mEq/L ADM SS CO2 [Moles/Vol] 28 mmol/L Invalid Interpretation Code 22 - 32 mEq/L ADM SS Creatinine [Mass/Vol] 0.99 mg/dL Invalid Interpretation Code 0.50 - 1.20 mg/dL ADM SS Electrolyte Balance 6.0 mEq/L Invalid Interpretation Code 4.0 - 15.0 mEq/L AH ADM SS Eosinophils (Bld) [#/Vol] 0.10 103/mcL Invalid Interpretation Code 0.00 - 0.65 10^3/mcL AH Remisol SS Eosinophils/100 WBC (Bld) 2.6 % Invalid Interpretation Code 0.0 - 6.0 % AH Remisol SS Erythrocyte distribution width (RBC) [Ratio] 15.4 % Invalid Interpretation Code 11.5 - 15.5 % AH Remisol SS GFR/1.73 sq M.predicted among blacks MDRD (S/P/Bld) [Vol rate/Area] ml/min/1.73sqm Invalid Interpretation Code AH ADM SS GFR/1.73 sq M.predicted among non-blacks MDRD (S/P/Bld) [Vol rate/Area] 56 ml/min/1.73sqm Invalid Interpretation Code ADM SS Glucose [Mass/Vol] 125 mg/dL Invalid Interpretation Code 82 - 115 mg/dL AH ADM SS Hematocrit (Bld) [Volume fraction] 28.7 % Invalid Interpretation Code 34.0 - 46.0 % AH Remisol SS Hemoglobin (Bld) [Mass/Vol] 9.6 G/dL Invalid Interpretation Code 12.0 - 16.0 G/dL AH Remisol SS Lymphocytes (Bld) [#/Vol] 1.90 103/mcL Invalid Interpretation Code 0.90 - 4.32 10^3/mcL AH Remisol SS Lymphocytes/100 WBC (Bld) 40.6 % Invalid Interpretation Code 20.0 - 40.0 % AH Remisol SS Magnesium [Mass/Vol] 1.9 mg/dL Invalid Interpretation Code 1.6 - 2.4 mg/dL AH ADM SS MCH (RBC) [Entitic mass] 30.2 pg Invalid Interpretation Code 27.0 - 33.0 pg AH Remisol SS MCHC (RBC) [Mass/Vol] 33.5 G/dL Invalid Interpretation Code 32.0 - 36.0 G/dL AH Remisol SS MCV (RBC) [Entitic vol] 90.2 fL Invalid Interpretation Code 80.0 - 99.0 fL AH Remisol SS Monocytes (Bld) [#/Vol] 0.60 103/mcL Invalid Interpretation Code 0.09 - 1.40 10^3/mcL AH Remisol SS Monocytes/100 WBC (Bld) 13.7 % Invalid Interpretation Code 2.0 - 13.0 % AH Remisol SS Neutrophils (Bld) [#/Vol] 2.00 103/mcL Invalid Interpretation Code 2.25 - 8.10 10^3/mcL AH Remisol SS Neutrophils/100 WBC (Bld) 42.4 % Invalid Interpretation Code 50.0 - 75.0 % AH Remisol SS Platelet mean volume (Bld) [Entitic vol] 9.0 fL Invalid Interpretation Code 6.6 - 10.5 fL AH Remisol SS Platelets (Bld) [#/Vol] 211 103/mcL Invalid Interpretation Code 150 - 450 10^3/mcL AH Remisol SS Potassium [Moles/Vol] 3.8 mmol/L Invalid Interpretation Code 3.5 - 5.0 mEq/L AH ADM SS RBC (Bld) [#/Vol] 3.18 106/mcL Invalid Interpretation Code 4.10 - 5.30 10^6/mcL AH Remisol SS Sodium [Moles/Vol] 138 mmol/L Invalid Interpretation Code 136 - 145 mEq/L AH ADM SS Urea nitrogen [Mass/Vol] 24.0 mg/dL Invalid Interpretation Code 8.0 - 22.0 mg/dL AH ADM SS Urea nitrogen/Creatinine [Mass ratio] 24.2 ratio Invalid Interpretation Code 10.0 - 22.0 ratio AH ADM SS WBC (Bld) [#/Vol] 4.70 103/mcL Invalid Interpretation Code 4.50 - 10.80 10^3/mcL AH Remisol SS LABORATORYOrdered By: Angelita Ballard on 12-04-2021 Blood Glucose Testing Reason Routine (12/04/21 9:52 PM) [facility] Work Phone: Glucose [Mass/Vol] 112 mg/dL Invalid Interpretation Code 82 - 115 mg/dL [facility] Work Phone: LABORATORYOrdered By: Sanford Stiles on 12-04-2021 Blood Glucose Testing Reason Routine (12/04/21 4:08 PM) [facility] Work Phone: LABORATORYOrdered By: [employer] SYSTEM on 12-04-2021 Anisocytosis Ql (Bld) Slight *NA* (12/04/21 4:29 AM) Invalid Interpretation Code AH Remisol SS Basophils (Bld) [#/Vol] 0.08 103/mcL Invalid Interpretation Code 0.00 - 0.27 10^3/mcL AH Remisol SS Basophils/100 WBC (Bld) 1.0 % Invalid Interpretation Code 0.0 - 2.5 % AH Remisol SS Calcium [Mass/Vol] 9.2 mg/dL Invalid Interpretation Code 8.7 - 10.4 mg/dL AH ADM SS Cells Counted Total (Unsp spec) [#] 100 Invalid Interpretation Code AH Remisol SS Chloride [Moles/Vol] 102 mmol/L Invalid Interpretation Code 98 - 110 mEq/L AH ADM SS CO2 [Moles/Vol] 27 mmol/L Invalid Interpretation Code 22 - 32 mEq/L AH ADM SS Creatinine [Mass/Vol] 1.00 mg/dL Invalid Interpretation Code 0.50 - 1.20 mg/dL AH ADM SS Dacrocytes LM Ql (Bld) Rare *NA* (12/04/21 4:29 AM) Invalid Interpretation Code AH Remisol SS Electrolyte Balance 9.0 mEq/L Invalid Interpretation Code 4.0 - 15.0 mEq/L AH ADM SS Eosinophils (Bld) [#/Vol] 0.08 103/mcL Invalid Interpretation Code 0.00 - 0.65 10^3/mcL AH Remisol SS Eosinophils/100 WBC (Bld) 1.0 % Invalid Interpretation Code 0.0 - 6.0 % AH Remisol SS Erythrocyte distribution width (RBC) [Ratio] 15.6 % Invalid Interpretation Code 11.5 - 15.5 % AH Remisol SS GFR/1.73 sq M.predicted among blacks MDRD (S/P/Bld) [Vol rate/Area] ml/min/1.73sqm Invalid Interpretation Code Chemistry S GFR/1.73 sq M.predicted among non-blacks MDRD (S/P/Bld) [Vol rate/Area] 55 ml/min/1.73sqm Invalid Interpretation Code Chemistry S Glucose [Mass/Vol] 114 mg/dL Invalid Interpretation Code 82 - 115 mg/dL AH ADM SS Hematocrit (Bld) [Volume fraction] 31.0 % Invalid Interpretation Code 34.0 - 46.0 % AH Remisol SS Hemoglobin (Bld) [Mass/Vol] 10.4 G/dL Invalid Interpretation Code 12.0 - 16.0 G/dL AH Remisol SS Lymphocytes (Bld) [#/Vol] 2.39 103/mcL Invalid Interpretation Code 0.90 - 4.32 10^3/mcL AH Remisol SS Lymphocytes/100 WBC (Bld) 31.0 % Invalid Interpretation Code 20.0 - 40.0 % AH Remisol SS Magnesium [Mass/Vol] 2.1 mg/dL Invalid Interpretation Code 1.6 - 2.4 mg/dL AH ADM SS MCH (RBC) [Entitic mass] 30.4 pg Invalid Interpretation Code 27.0 - 33.0 pg AH Remisol SS MCHC (RBC) [Mass/Vol] 33.8 G/dL Invalid Interpretation Code 32.0 - 36.0 G/dL AH Remisol SS MCV (RBC) [Entitic vol] 90.2 fL Invalid Interpretation Code 80.0 - 99.0 fL AH Remisol SS Monocytes (Bld) [#/Vol] 0.85 103/mcL Invalid Interpretation Code 0.09 - 1.40 10^3/mcL AH Remisol SS Monocytes/100 WBC (Bld) 11.0 % Invalid Interpretation Code 2.0 - 13.0 % AH Remisol SS Neutrophils (Bld) [#/Vol] 4.31 103/mcL Invalid Interpretation Code 2.25 - 8.10 10^3/mcL AH Remisol SS Neutrophils/100 WBC (Bld) 56.0 % Invalid Interpretation Code 50.0 - 75.0 % AH Remisol SS Ovalocytes LM Ql (Bld) Few *NA* (12/04/21 4:29 AM) Invalid Interpretation Code AH Remisol SS Platelet mean volume (Bld) [Entitic vol] 9.3 fL Invalid Interpretation Code 6.6 - 10.5 fL AH Remisol SS Platelets (Bld) [#/Vol] 188 103/mcL Invalid Interpretation Code 150 - 450 10^3/mcL AH Remisol SS Platelets LM Ql (Bld) Normal 2 *NA* (12/04/21 4:29 AM) Invalid Interpretation Code AH Remisol SS Comment on above: Result Comment: Few platelet clumps seen. Poikilocytosis LM Ql (Bld) Slight *NA* (12/04/21 4:29 AM) Invalid Interpretation Code AH Remisol SS Potassium [Moles/Vol] 4.6 mmol/L Invalid Interpretation Code 3.5 - 5.0 mEq/L AH ADM SS Comment on above: Result Comment: Spec imen slightly hemolyzed. RBC (Bld) [#/Vol] 3.43 106/mcL Invalid Interpretation Code 4.10 - 5.30 10^6/mcL AH Remisol SS Sodium [Moles/Vol] 138 mmol/L Invalid Interpretation Code 136 - 145 mEq/L AH ADM SS Urea nitrogen [Mass/Vol] 19.0 mg/dL Invalid Interpretation Code 8.0 - 22.0 mg/dL AH ADM SS Urea nitrogen/Creatinine [Mass ratio] 19.0 ratio Invalid Interpretation Code 10.0 - 22.0 ratio AH ADM SS WBC (Bld) [#/Vol] 7.70 103/mcL Invalid Interpretation Code 4.50 - 10.80 10^3/mcL AH Remisol SS LABORATORYOrdered By: Eli Markham on 12-03-2021 aPTT Coag (PPP) [Time] 67.0 s Invalid Interpretation Code 25.0 - 35.0 seconds AH Auto Coag SS Heparin dose (APTT) Heparin IV (12/03/21 5:13 AM) Invalid Interpretation Code Auto Coag SS LABORATORYOrdered By: SYSTEM SYSTEM on 12-03-2021 Basophils (Bld) [#/Vol] 0.00 103/mcL Invalid Interpretation Code 0.00 - 0.27 10^3/mcL AH Remisol SS Basophils/100 WBC (Bld) 0.7 % Invalid Interpretation Code 0.0 - 2.5 % AH Remisol SS Calcium [Mass/Vol] 9.2 mg/dL Invalid Interpretation Code 8.7 - 10.4 mg/dL AH ADM SS Chloride [Moles/Vol] 104 mmol/L Invalid Interpretation Code 98 - 110 mEq/L AH ADM SS CO2 [Moles/Vol] 28 mmol/L Invalid Interpretation Code 22 - 32 mEq/L AH ADM SS Creatinine [Mass/Vol] 0.98 mg/dL Invalid Interpretation Code 0.50 - 1.20 mg/dL AH ADM SS Electrolyte Balance 9.0 mEq/L Invalid Interpretation Code 4.0 - 15.0 mEq/L AH ADM SS Eosinophils (Bld) [#/Vol] 0.10 103/mcL Invalid Interpretation Code 0.00 - 0.65 10^3/mcL AH Remisol SS Eosinophils/100 WBC (Bld) 2.5 % Invalid Interpretation Code 0.0 - 6.0 % AH Remisol SS Erythrocyte distribution width (RBC) [Ratio] 15.0 % Invalid Interpretation Code 11.5 - 15.5 % AH Remisol SS GFR/1.73 sq M.predicted among blacks MDRD (S/P/Bld) [Vol rate/Area] ml/min/1.73sqm Invalid Interpretation Code AH ADM SS GFR/1.73 sq M.predicted among non-blacks MDRD (S/P/Bld) [Vol rate/Area] 56 ml/min/1.73sqm Invalid Interpretation Code ADM SS Glucose [Mass/Vol] 162 mg/dL Invalid Interpretation Code 82 - 115 mg/dL AH ADM SS Hematocrit (Bld) [Volume fraction] 30.4 % Invalid Interpretation Code 34.0 - 46.0 % AH Remisol SS Hemoglobin (Bld) [Mass/Vol] 10.4 G/dL Invalid Interpretation Code 12.0 - 16.0 G/dL AH Remisol SS Lymphocytes (Bld) [#/Vol] 2.00 103/mcL Invalid Interpretation Code 0.90 - 4.32 10^3/mcL AH Remisol SS Lymphocytes/100 WBC (Bld) 38.7 % Invalid Interpretation Code 20.0 - 40.0 % AH Remisol SS Magnesium [Mass/Vol] 2.0 mg/dL Invalid Interpretation Code 1.6 - 2.4 mg/dL AH ADM SS MCH (RBC) [Entitic mass] 30.0 pg Invalid Interpretation Code 27.0 - 33.0 pg AH Remisol SS MCHC (RBC) [Mass/Vol] 34.0 G/dL Invalid Interpretation Code 32.0 - 36.0 G/dL AH Remisol SS MCV (RBC) [Entitic vol] 88.3 fL Invalid Interpretation Code 80.0 - 99.0 fL AH Remisol SS Monocytes (Bld) [#/Vol] 0.60 103/mcL Invalid Interpretation Code 0.09 - 1.40 10^3/mcL AH Remisol SS Monocytes/100 WBC (Bld) 11.1 % Invalid Interpretation Code 2.0 - 13.0 % AH Remisol SS Neutrophils (Bld) [#/Vol] 2.50 103/mcL Invalid Interpretation Code 2.25 - 8.10 10^3/mcL AH Remisol SS Neutrophils/100 WBC (Bld) 47.0 % Invalid Interpretation Code 50.0 - 75.0 % AH Remisol SS Platelet mean volume (Bld) [Entitic vol] 8.9 fL Invalid Interpretation Code 6.6 - 10.5 fL AH Remisol SS Platelets (Bld) [#/Vol] 230 103/mcL Invalid Interpretation Code 150 - 450 10^3/mcL AH Remisol SS Potassium [Moles/Vol] 4.1 mmol/L Invalid Interpretation Code 3.5 - 5.0 mEq/L AH ADM SS RBC (Bld) [#/Vol] 3.45 106/mcL Invalid Interpretation Code 4.10 - 5.30 10^6/mcL AH Remisol SS Sodium [Moles/Vol] 141 mmol/L Invalid Interpretation Code 136 - 145 mEq/L AH ADM SS Urea nitrogen [Mass/Vol] 24.0 mg/dL Invalid Interpretation Code 8.0 - 22.0 mg/dL AH ADM SS Urea nitrogen/Creatinine [Mass ratio] 24.5 ratio Invalid Interpretation Code 10.0 - 22.0 ratio AH ADM SS WBC (Bld) [#/Vol] 5.30 103/mcL Invalid Interpretation Code 4.50 - 10.80 10^3/mcL AH Remisol SS LABORATORYOrdered By: Joann on 12-02-2021 aPTT Coag (PPP) [Time] 62.8 s Invalid Interpretation Code 25.0 - 35.0 seconds AH Auto Coag SS Heparin dose (APTT) Heparin IV (12/02/21 3:32 PM) Invalid Interpretation Code AH Auto Coag SS LABORATORYOrdered By: Jeanette Newell on 12-02-2021 aPTT Coag (PPP) [Time] 65.5 s Invalid Interpretation Code 25.0 - 35.0 seconds AH Auto Coag SS Heparin dose (APTT) Heparin IV (12/02/21 9:41 AM) Invalid Interpretation Code AH Auto Coag SS LABORATORYOrdered By: SYSTEM SYSTEM on 12-02-2021 Basophils (Bld) [#/Vol] 0.00 103/mcL Invalid Interpretation Code 0.00 - 0.27 10^3/mcL AH Remisol SS Basophils/100 WBC (Bld) 0.6 % Invalid Interpretation Code 0.0 - 2.5 % AH Remisol SS Eosinophils (Bld) [#/Vol] 0.10 103/mcL Invalid Interpretation Code 0.00 - 0.65 10^3/mcL AH Remisol SS Eosinophils/100 WBC (Bld) 2.4 % Invalid Interpretation Code 0.0 - 6.0 % AH Remisol SS Lymphocytes (Bld) [#/Vol] 2.20 103/mcL Invalid Interpretation Code 0.90 - 4.32 10^3/mcL AH Remisol SS Lymphocytes/100 WBC (Bld) 42.6 % Invalid Interpretation Code 20.0 - 40.0 % AH Remisol SS Monocytes (Bld) [#/Vol] 0.50 103/mcL Invalid Interpretation Code 0.09 - 1.40 10^3/mcL AH Remisol SS Monocytes/100 WBC (Bld) 9.7 % Invalid Interpretation Code 2.0 - 13.0 % AH Remisol SS Neutrophils (Bld) [#/Vol] 2.30 103/mcL Invalid Interpretation Code 2.25 - 8.10 10^3/mcL AH Remisol SS Neutrophils/100 WBC (Bld) 44.7 % Invalid Interpretation Code 50.0 - 75.0 % AH Remisol SS LABORATORYOrdered By: Vee Matias on 12-01-2021 Barometric Pressure 717 mm[Hg] Invalid Interpretation Code AH Auto Chem SS Base excess Calc (Bld) [Moles/Vol] 4.7 mmol/L Invalid Interpretation Code AH Auto Chem SS CO2 (Bld) [Partial pressure] 35.7 mm[Hg] Invalid Interpretation Code 32.0 - 46.0 mm Hg AH Auto Chem SS CO2 [Moles/Vol] 28.9 mmol/L Invalid Interpretation Code 22.0 - 30.0 mmol/L AH Auto Chem SS HCO3 (Bld) [Moles/Vol] 27.8 mmol/L Invalid Interpretation Code 21.0 - 29.0 mmol/L AH Auto Chem SS Oxygen (Bld) [Partial pressure] 60.9 mm[Hg] Invalid Interpretation Code 74.0 - 108.0 mm Hg AH Auto Chem SS pH (Bld) 7.510 [pH] Invalid Interpretation Code 7.380 - 7.460 AH Auto Chem SS LABORATORYOrdered By: SYSTEM SYSTEM on 11-30-2021 Ferritin [Mass/Vol] 122.4 ng/mL Invalid Interpretation Code 8.0 - 252.0 ng/mL ADM SS Iron [Mass/Vol] 55 ug/dL Invalid Interpretation Code 50 - 170 mcg/dL AH ADM SS Iron binding capacity [Mass/Vol] 305 mcg/dL Invalid Interpretation Code 250 - 500 mcg/dL AH ADM SS Iron saturation [Mass fraction] 18 1 Invalid Interpretation Code ADM SS 25-hydroxyvitamin D3 [Mass/Vol] 38.4 ng/mL Invalid Interpretation Code ADM SS Iron [Mass/Vol] 47 ug/dL Invalid Interpretation Code 50 - 170 mcg/dL AH ADM SS LABORATORYOrdered By: Linda Oliveros on 11-30-2021 Appearance (U) Cloudy *ABN* (11/30/21 12:52 PM) Invalid Interpretation Code Clear AH Auto Urine SS Bacteria LM.HPF (Urine sed) [#/Area] Trace /HPF Invalid Interpretation Code Negative/H PF AH Auto Urine SS Bilirubin Ql (U) Negative (11/30/21 12:52 PM) Invalid Interpretation Code Neg-Trace AH Auto Urine SS Color (U) Yellow (11/30/21 12:52 PM) Invalid Interpretation Code AH Auto Urine SS Glucose Test strip (U) [Mass/Vol] Negative Invalid Interpretation Code Negativemg /dL AH Auto Urine SS Hemoglobin Auto test strip (U) [Mass/Vol] Large *ABN* (11/30/21 12:52 PM) Invalid Interpretation Code Neg-Trace AH Auto Urine SS Ketones Ql (U) Negative Invalid Interpretation Code Neg-Tracem g/dL AH Auto Urine SS UA Leuk Est Negative (11/30/21 12:52 PM) Invalid Interpretation Code Negative AH Auto Urine SS UA Nitrite Negative (11/30/21 12:52 PM) Invalid Interpretation Code Negative AH Auto Urine SS UA pH 8.5 *ABN* (11/30/21 12:52 PM) Invalid Interpretation Code 5.0 - 8.0 AH Auto Urine SS UA Protein Trace mg/dL Invalid Interpretation Code Negativemg /dL AH Auto Urine SS UA RBC LOADED /HPF Invalid Interpretation Code 0-2/HPF AH Auto Urine SS UA Spec Grav 1.015 (11/30/21 12:52 PM) Invalid Interpretation Code 1.006-1.02 9 Auto Urine SS UA Specimen Type Catheter (11/30/21 12:52 PM) Invalid Interpretation Code AH Auto Urine SS UA Squam Epithelial Rare /HPF Invalid Interpretation Code 0-20/HPF AH Auto Urine SS UA Urobilinogen 0.2 E.U./dL Invalid Interpretation Code 0.2-1.0E.U ./dL AH Auto Urine SS WBC LM.HPF (Urine sed) [#/Area] Rare /HPF Invalid Interpretation Code 0-5/HPF AH Auto Urine SS No Panel Informationon 11-30 Microscopic examination of blood, culture Blood Culture: No Growth at 5 days. [facility] Work Phone: LABORATORYOrdered By: SYSTEM SYSTEM on 11-28-2021 Cortisol [Mass/Vol] 34.6 ug/dL Invalid Interpretation Code 6.5 - 26.0 mcg/dL AH ADM SS Cortisol [Mass/Vol] 27.6 ug/dL Invalid Interpretation Code 6.5 - 26.0 mcg/dL AH ADM SS Cortisol [Mass/Vol] 4.8 ug/dL Invalid Interpretation Code 6.5 - 26.0 mcg/dL AH ADM SS LABORATORYOrdered By: Tony Rothman on 11-27-2021 ABO and Rh group Nom (Bld) Blood group A Rh(D) negative Invalid Interpretation Code AH BB Auto SS Blood group antibody screen Ql NEG (11/27/21 12:53 PM) Invalid Interpretation Code AH BB Auto SS Direct antiglobulin test.IgG specific reagent Ql (RBC) NEG (11/27/21 12:53 PM) Invalid Interpretation Code AH BB Auto SS LABORATORYOrdered By: [employer] SYSTEM on 11-27-2021 CRP [Mass/Vol] 5.2 mg/dL Invalid Interpretation Code 0.0 - 1.0 mg/dL AH ADM SS HbA1c (Bld) [Mass fraction] 6.7 % Invalid Interpretation Code 4.0 - 6.0 % AH Auto Chem SS TSH Qn 1.284 mIU/mL Invalid Interpretation Code 0.550 - 4.780 mIU/mL AH ADM SS LABORATORYOrdered By: Kylie Rosa on 11-27-2021 ESR 15 minute reading (Bld) [Velocity] 34 mm/hr Invalid Interpretation Code 0 - 30 mm/hr AH Manual Heme SS LABORATORYOrdered By: Kurtis Gomez on 11-27-2021 Adenovirus DNA ENRIQUE+non-probe Ql (Nph) Not Detected *NA* (11/27/21 12:42 PM) Invalid Interpretation Code Not Detected AH Auto Viro/Sero SS ADMITTED TO INTENSIVE CARE UNIT FOR CONDITION OF INTEREST:FIND:PT:^MATT ENT:ORD: No (11/27/21 12:42 PM) Invalid Interpretation Code AH Auto Viro/Sero SS B. pertussis toxin promoter region ENRIQUE+non-probe Ql (Nph) Not Detected *NA* (11/27/21 12:42 PM) Invalid Interpretation Code Not Detected AH Auto Viro/Sero SS Bordetella Parapertussis Not Detected *NA* (11/27/21 12:42 PM) Invalid Interpretation Code Not Detected AH Auto Viro/Sero SS C. pneumoniae DNA ENRIQUE+non-probe Ql (Nph) Not Detected *NA* (11/27/21 12:42 PM) Invalid Interpretation Code Not Detected AH Auto Viro/Sero SS EMPLOYED IN A HEALTHCARE SETTING:FIND:PT:^PATIE NT:ORD: No (11/27/21 12:42 PM) Invalid Interpretation Code AH Auto Viro/Sero SS FIRST TEST FOR CONDITION OF INTEREST:FIND:PT:^MATT ENT:ORD: No (11/27/21 12:42 PM) Invalid Interpretation Code AH Auto Viro/Sero SS FLUAV RNA ENRIQUE+non-probe Ql (Nph) Not Detected *NA* (11/27/21 12:42 PM) Invalid Interpretation Code Not Detected Auto Viro/Sero SS FLUBV RNA ENRIQUE+non-probe Ql (Nph) Not Detected *NA* (11/27/21 12:42 PM) Invalid Interpretation Code Not Detected Auto Viro/Sero SS HAS SYMPTOMS RELATED TO CONDITION OF INTEREST:FIND:PT:^MATT ENT:ORD: No (11/27/21 12:42 PM) Invalid Interpretation Code Auto Viro/Sero SS hMPV RNA ENRIQUE+non-probe Ql (Nph) Not Detected *NA* (11/27/21 12:42 PM) Invalid Interpretation Code Not Detected Auto Viro/Sero SS Illness or injury onset date and time [id number] Invalid Interpretation Code Auto Viro/Sero SS M. pneumoniae DNA ENRIQUE+non-probe Ql (Nph) Not Detected *NA* (11/27/21 12:42 PM) Invalid Interpretation Code Not Detected Auto Viro/Sero SS Parainfluenza virus 1 RNA ENRIQUE+non-probe Ql (Nph) Not Detected *NA* (11/27/21 12:42 PM) Invalid Interpretation Code Not Detected Auto Viro/Sero SS Parainfluenza virus 2 RNA ENRIQUE+non-probe Ql (Nph) Not Detected *NA* (11/27/21 12:42 PM) Invalid Interpretation Code Not Detected Auto Viro/Sero SS Parainfluenza virus 3 RNA ENRIQUE+non-probe Ql (Nph) Not Detected *NA* (11/27/21 12:42 PM) Invalid Interpretation Code Not Detected Auto Viro/Sero SS Parainfluenza virus 4 RNA ENRIQUE+non-probe Ql (Nph) Not Detected *NA* (11/27/21 12:42 PM) Invalid Interpretation Code Not Detected Auto Viro/Sero SS Patient was hospitalized because of this condition Yes (11/27/21 12:42 PM) Invalid Interpretation Code Auto Viro/Sero SS status Not (11/27/21 12:42 PM) Invalid Interpretation Code Auto Viro/Sero SS RESIDES IN A CONGREGATE CARE SETTING:FIND:PT:^PATIE NT:ORD: No (11/27/21 12:42 PM) Invalid Interpretation Code Auto Viro/Sero SS Rhinovirus+Enterovirus RNA ENRIQUE+non-probe Ql (Nph) Not Detected *NA* (11/27/21 12:42 PM) Invalid Interpretation Code Not Detected AH Auto Viro/Sero SS RSV RNA ENRIQUE+non-probe Ql (Nph) Not Detected *NA* (11/27/21 12:42 PM) Invalid Interpretation Code Not Detected Auto Viro/Sero SS SARS-CoV-2 (COVID-19) RNA ENRIQUE+probe Ql (Unsp spec) Not Detected *NA* (11/27/21 12:42 PM) Invalid Interpretation Code Not Detected Auto Viro/Sero SS No Panel Informationon 11-27 Microscopic examination of blood, culture Blood Culture: No Growth at 5 days. [facility] Work Phone: Culture Urine No growth at 48 hours. [facility] Work Phone: LABORATORYOrdered By: Yanna navarrete on 11-26-2021 Barometric Pressure 703 mm[Hg] Invalid Interpretation Code AH Auto Chem SS Base excess Calc (Bld) [Moles/Vol] 7.7 mmol/L Invalid Interpretation Code AH Auto Chem SS CO2 (Bld) [Partial pressure] 41.9 mm[Hg] Invalid Interpretation Code 32.0 - 46.0 mm Hg AH Auto Chem SS CO2 [Moles/Vol] 32.9 mmol/L Invalid Interpretation Code 22.0 - 30.0 mmol/L AH Auto Chem SS HCO3 (Bld) [Moles/Vol] 31.6 mmol/L Invalid Interpretation Code 21.0 - 29.0 mmol/L AH Auto Chem SS Oxygen (Bld) [Partial pressure] 69.7 mm[Hg] Invalid Interpretation Code 74.0 - 108.0 mm Hg AH Auto Chem SS pH (Bld) 7.496 [pH] Invalid Interpretation Code 7.380 - 7.460 AH Auto Chem SS LABORATORYOrdered By: Libertad Corral on 11-25-2021 Barometric Pressure 718 mm[Hg] Invalid Interpretation Code AH Auto Chem SS Base excess Calc (Bld) [Moles/Vol] 5.9 mmol/L Invalid Interpretation Code AH Auto Chem SS CO2 (Bld) [Partial pressure] 40.5 mm[Hg] Invalid Interpretation Code 32.0 - 46.0 mm Hg Auto Chem SS CO2 [Moles/Vol] 31.1 mmol/L Invalid Interpretation Code 22.0 - 30.0 mmol/L Auto Chem SS HCO3 (Bld) [Moles/Vol] 29.8 mmol/L Invalid Interpretation Code 21.0 - 29.0 mmol/L Auto Chem SS Oxygen (Bld) [Partial pressure] 74.5 mm[Hg] Invalid Interpretation Code 74.0 - 108.0 mm Hg Auto Chem SS pH (Bld) 7.485 [pH] Invalid Interpretation Code 7.380 - 7.460 Auto Chem SS LABORATORYOrdered By: SYSTEM SYSTEM on 11-25-2021 Albumin [Mass/Vol] 2.7 G/dL Invalid Interpretation Code 3.2 - 4.8 G/dL ADM SS Albumin/Globulin [Mass ratio] 0.6 {ratio} Invalid Interpretation Code 0.9 - 1.6 ratio ADM SS ALP [Catalytic activity/Vol] 74 U/L Invalid Interpretation Code 38 - 126 U/L ADM SS ALT [Catalytic activity/Vol] 17 U/L Invalid Interpretation Code 10 - 49 U/L ADM SS AST [Catalytic activity/Vol] 25 U/L Invalid Interpretation Code 8 - 34 U/L ADM SS Bilirubin [Mass/Vol] 0.5 mg/dL Invalid Interpretation Code 0.2 - 1.2 mg/dL ADM SS Globulin (S) [Mass/Vol] 4.4 G/dL Invalid Interpretation Code 1.5 - 3.8 G/dL ADM SS Protein [Mass/Vol] 7.1 G/dL Invalid Interpretation Code 6.0 - 8.5 G/dL ADM SS LABORATORYOrdered By: SYSTEM SYSTEM on 11-24-2021 Troponin I.cardiac DL <= 0.01 ng/mL [Mass/Vol] 207.28 ng/L Invalid Interpretation Code 0.00 - 34.00 ng/L ADM SS Albumin [Mass/Vol] 2.2 G/dL Invalid Interpretation Code 3.2 - 4.8 G/dL ADM SS Albumin/Globulin [Mass ratio] 0.6 {ratio} Invalid Interpretation Code 0.9 - 1.6 ratio ADM SS ALP [Catalytic activity/Vol] 68 U/L Invalid Interpretation Code 38 - 126 U/L ADM SS ALT [Catalytic activity/Vol] 17 U/L Invalid Interpretation Code 10 - 49 U/L ADM SS AST [Catalytic activity/Vol] 20 U/L Invalid Interpretation Code 8 - 34 U/L ADM SS Bilirubin [Mass/Vol] 0.3 mg/dL Invalid Interpretation Code 0.2 - 1.2 mg/dL ADM SS Globulin (S) [Mass/Vol] 3.7 G/dL Invalid Interpretation Code 1.5 - 3.8 G/dL ADM SS Phosphate [Mass/Vol] 3.6 mg/dL Invalid Interpretation Code 2.5 - 4.5 mg/dL ADM SS Protein [Mass/Vol] 5.9 G/dL Invalid Interpretation Code 6.0 - 8.5 G/dL ADM SS LABORATORYOrdered By: Tushar Rausch on 11-24-2021 INR Coag (PPP) [Relative time] 1.1 {INR} Invalid Interpretation Code Auto Coag SS PT Coag (PPP) [Time] 13.2 s Invalid Interpretation Code 9.0 - 14.8 seconds Auto Coag SS LABORATORYOrdered By: SYSTEM SYSTEM on 11-23-2021 Troponin I.cardiac DL <= 0.01 ng/mL [Mass/Vol] 359.91 ng/L Invalid Interpretation Code 0.00 - 34.00 ng/L ADM SS LABORATORYOrdered By: TESSIE FLEMING CONTRIBUTOR_SYSTEM on 11-22-2021 Coccidioides Ab, IgG 0.2 Invalid Interpretation Code [facility] Comment on above: Result Comment: Refe rence range: <=0.9 Unit: IV (NOTE) INTERPRETIVE INFORMATION: Coccidioides Antibody, Ig.9 IV or less: Negative - No significant level of Coccidioides IgG antibody detected. 1.0 - 1.4 IV: Equivocal - Questionable presence of Coccidioides IgG antibody detected. Repeat testing in 10-14 days may be helpful. 1.5 IV or greater: Positive - Presence of IgG antibody to Coccidioides detected, suggestive of current or past infection. IgG antibody usually appears by the third week of infection and may persist for years. Both tube precipitin (TP) and CF antigens are represented in the EDNA tests. Coccidioides Ab, IgM 0.1 Invalid Interpretation Code [facility] Comment on above: Result Comment: Refe rence range: <=0.9 Unit: IV (NOTE) INTERPRETIVE INFORMATION: Coccidioides Antibody, IgM: 0.9 IV or less: Negative - No significant level of Coccidioides IgM antibody detected. 1.0 - 1.4 IV: Equivocal - Questionable presence of Coccidioides IgM antibody detected. Repeat testing in 10-14 days may be helpful. 1.5 IV or greater: Positive - Presence of IgM antibody to Coccidioides detected, suggestive of current or recent infection. In most symptomatic patients, IgM antibody usually appears by the second week of infection and disappears by the fourth month. Both tube precipitin (TP) and CF antigens are represented in the EDNA tests. Performed By: [facility] [address] [place] [address] Document Restorer: Nicolette Bolton MD LABORATORYOrdered By: adQuota on 11-22-2021 Natriuretic peptide.B prohormone N-Terminal [Mass/Vol] 9680 pg/mL Invalid Interpretation Code 0 - 900 pg/mL ADM SS Albumin [Mass/Vol] 2.2 G/dL Invalid Interpretation Code 3.2 - 4.8 G/dL AH ADM SS Albumin/Globulin [Mass ratio] 0.6 {ratio} Invalid Interpretation Code 0.9 - 1.6 ratio ADM SS ALP [Catalytic activity/Vol] 71 U/L Invalid Interpretation Code 38 - 126 U/L AH ADM SS ALT [Catalytic activity/Vol] 25 U/L Invalid Interpretation Code 10 - 49 U/L AH ADM SS AST [Catalytic activity/Vol] 35 U/L Invalid Interpretation Code 8 - 34 U/L AH ADM SS Bilirubin [Mass/Vol] 0.3 mg/dL Invalid Interpretation Code 0.2 - 1.2 mg/dL AH ADM SS Globulin (S) [Mass/Vol] 3.7 G/dL Invalid Interpretation Code 1.5 - 3.8 G/dL AH ADM SS Phosphate [Mass/Vol] 3.3 mg/dL Invalid Interpretation Code 2.5 - 4.5 mg/dL AH ADM SS Protein [Mass/Vol] 5.9 G/dL Invalid Interpretation Code 6.0 - 8.5 G/dL AH ADM SS LABORATORYOrdered By: Tanya Skinner on 11-22-2021 Lactate [Moles/Vol] 1.6 mmol/L Invalid Interpretation Code 0.2 - 2.0 mmol/L AH Auto Chem SS LABORATORYOrdered By: Yanna navarrete on 11-22-2021 Lactate [Moles/Vol] 2.0 mmol/L Invalid Interpretation Code 0.2 - 2.0 mmol/L AH Auto Chem SS Lactate [Moles/Vol] 1.9 mmol/L Invalid Interpretation Code 0.2 - 2.0 mmol/L AH Auto Chem SS LABORATORYOrdered By: Ju Douglas on 11-22-2021 Date of Onset [id number] Invalid Interpretation Code AH Auto Viro/Sero SS Employed in Healthcare No (11/22/21 6:28 AM) Invalid Interpretation Code AH Auto Viro/Sero SS First Test No (11/22/21 6:28 AM) Invalid Interpretation Code AH Auto Viro/Sero SS FLU A PCR Negative 4 (11/22/21 6:28 AM) Invalid Interpretation Code Negative AH Auto Viro/Sero SS Comment on above: Result Comment: [place] [id number] FLU B PCR Negative 5 (11/22/21 6:28 AM) Invalid Interpretation Code Negative AH Auto Viro/Sero SS Comment on above: Result Comment: [place] [id number] Hospitalized Yes (11/22/21 6:28 AM) Invalid Interpretation Code AH Auto Viro/Sero SS ICU Yes (11/22/21 6:28 AM) Invalid Interpretation Code AH Auto Viro/Sero SS Not (11/22/21 6:28 AM) Invalid Interpretation Code AH Auto Viro/Sero SS Resides in Congregate Care Setting No (11/22/21 6:28 AM) Invalid Interpretation Code AH Auto Viro/Sero SS RSV PCR Negative 6 (11/22/21 6:28 AM) Invalid Interpretation Code Negative AH Auto Viro/Sero SS Comment on above: Result Comment: [place] [id number] SARS-CoV-2 (COVID-19) RNA ENRQIUE+probe Ql (Unsp spec) Negative 3 (11/22/21 6:28 AM) Invalid Interpretation Code Negative AH Auto Viro/Sero SS Comment on above: Result Comment: [place] [id number] Symptomatic as Defined by CDC Yes (11/22/21 6:28 AM) Invalid Interpretation Code AH Auto Viro/Sero SS LABORATORYOrdered By: Kiran Pena on 11-22-2021 Appearance (U) Clear (11/22/21 5:28 AM) Invalid Interpretation Code Clear AH Auto Urine SS Bacteria LM.HPF (Urine sed) [#/Area] Trace /HPF Invalid Interpretation Code Negative/H PF AH Auto Urine SS Bilirubin Ql (U) Negative (11/22/21 5:28 AM) Invalid Interpretation Code Neg-Trace AH Auto Urine SS Color (U) Yellow (11/22/21 5:28 AM) Invalid Interpretation Code AH Auto Urine SS Glucose Test strip (U) [Mass/Vol] Negative Invalid Interpretation Code Negativemg /dL AH Auto Urine SS Hemoglobin Auto test strip (U) [Mass/Vol] Small *ABN* (11/22/21 5:28 AM) Invalid Interpretation Code Neg-Trace AH Auto Urine SS Ketones Ql (U) Negative Invalid Interpretation Code Neg-Tracem g/dL AH Auto Urine SS UA Leuk Est Negative (11/22/21 5:28 AM) Invalid Interpretation Code Negative AH Auto Urine SS UA Nitrite Negative (11/22/21 5:28 AM) Invalid Interpretation Code Negative AH Auto Urine SS UA pH 5.5 (11/22/21 5:28 AM) Invalid Interpretation Code 5.0 - 8.0 AH Auto Urine SS UA Protein 30 mg/dL Invalid Interpretation Code Negativemg /dL AH Auto Urine SS UA RBC 0-2 /HPF Invalid Interpretation Code 0-2/HPF AH Auto Urine SS UA Spec Grav >=1.030 *ABN* (11/22/21 5:28 AM) Invalid Interpretation Code 1.006-1.02 9 AH Auto Urine SS UA Specimen Type Catheter (11/22/21 5:28 AM) Invalid Interpretation Code AH Auto Urine SS UA Squam Epithelial Rare /HPF Invalid Interpretation Code 0-20/HPF AH Auto Urine SS UA Urobilinogen 1.0 E.U./dL Invalid Interpretation Code 0.2-1.0E.U ./dL AH Auto Urine SS WBC LM.HPF (Urine sed) [#/Area] 3-5 /HPF Invalid Interpretation Code 0-5/HPF AH Auto Urine SS LABORATORYOrdered By: Libertad Corral on 11-22-2021 Calcium.ionized (Bld) [Mass/Vol] 1.00 mmol/L Invalid Interpretation Code 1.12 - 1.32 mmol/L AH Auto Chem SS LABORATORYOrdered By: Rob Tam on 11-22-2021 M. pneumoniae IgM IA Ql (S) Negative (11/22/21 4:53 AM) Invalid Interpretation Code Man Viro/Sero SS LABORATORYOrdered By: Janet Webber on 11-22-2021 Mycoplasma IgG Positive Invalid Interpretation Code Auto Viro/Sero SS LABORATORYOrdered By: Ellie Alfonso on 11-22-2021 Base excess Calc (Bld) [Moles/Vol] -6.0000 mmol/L Invalid Interpretation Code -2.4 - 2.3 mmol/L AO Blood Gas SS CO2 (Bld) [Partial pressure] 45.3 mm[Hg] Invalid Interpretation Code 35.0 - 45.0 mm Hg AO Blood Gas SS CO2 [Moles/Vol] 22 mmol/L Invalid Interpretation Code 19 - 24 mmol/L AO Blood Gas SS HCO3 (Bld) [Moles/Vol] 21.1 mmol/L Invalid Interpretation Code 22.0 - 26.0 mmol/L AO Blood Gas SS Oxygen (Bld) [Partial pressure] 189.0 mm[Hg] Invalid Interpretation Code 80.0 - 100.0 mm Hg AO Blood Gas SS pH (Bld) 7.28 [pH] Invalid Interpretation Code 7.35 - 7.45 AO Blood Gas SS No Panel Informationon 11-22 Culture Respiratory with Gram Stain Normal respiratory demarco present. Sensitivity testing not indicated. [facility] Work Phone: Comment on above: Requests for Mycopla sma, Legionella, Fungi, Mycobacteria, Chlamydia, and Viruses require ordering of those individual tests. GS Rare Epithelial cell s Rare Polymorphonuclear cells No organisms seen. [facility] Work Phone: Comment on above: Requests for Mycopla sma, Legionella, Fungi, Mycobacteria, Chlamydia, and Viruses require ordering of those individual tests. Culture Urine No growth at 48 hours. [facility] Work Phone: Legionella Urine Ag Presumptive negative for L. pneumophila serogroup 1 antigen in urine, suggesting no recent or current infection. Legionnaire's disease cannot be ruled out since other serogroups and species may also cause disease. [facility] Work Phone: Streptococcus Pneumoniae Urine Antig Presumptive negative for pneumococcal pneumonia, suggesting no current or recent pneumococcal infection. Infection due to Strep pneumoniae cannot be ruled out since the antigen present in the sample may be below the detection limit of the test. [facility] Work Phone: Comment on above: This test has not be en evaluated on patients taking antibiotics for greater than 24 hours or on patients who have recently completed an antibiotic regimen. The accuracy of this test has not been proven in young children. Microscopic examination of blood, culture Blood Culture: No Growth at 5 days. [facility] Work Phone: LABORATORYOrdered By: Ellie Alfonso on 11-21-2021 ADMITTED TO INTENSIVE CARE UNIT FOR CONDITION OF INTEREST:FIND:PT:^MATT ENT:ORD: No (11/21/21 9:56 PM) Invalid Interpretation Code AO Auto Urine SS Basophil, Absolute 0.00 103/mcL Invalid Interpretation Code 0.00 - 0.19 10^3/mcL AO Auto Heme SS Basophils/100 WBC (Bld) 0.3 % Invalid Interpretation Code 0.0 - 2.5 % AO Auto Heme SS Calcium [Mass/Vol] 8.7 mg/dL Invalid Interpretation Code 8.4 - 10.2 mg/dL AO ADM SS Chloride [Moles/Vol] 101 mmol/L Invalid Interpretation Code 98 - 107 mmol/L AO ADM SS CO2 [Moles/Vol] 22 mmol/L Invalid Interpretation Code 23 - 31 mmol/L AO ADM SS Creatinine [Mass/Vol] 1.00 mg/dL Invalid Interpretation Code 0.55 - 1.02 mg/dL AO ADM SS Electrolyte Balance 14.0 mEq/L Invalid Interpretation Code AO ADM SS EMPLOYED IN A HEALTHCARE SETTING:FIND:PT:^PATIE NT:ORD: No (11/21/21 9:56 PM) Invalid Interpretation Code AO Auto Urine SS Eosinophil, Absolute 0.00 103/mcL Invalid Interpretation Code 0.00 - 0.40 10^3/mcL AO Auto Heme SS Eosinophils/100 WBC (Bld) 0.1 % Invalid Interpretation Code 0.0 - 7.0 % AO Auto Heme SS Erythrocyte distribution width (RBC) [Ratio] 14.0 % Invalid Interpretation Code 11.5 - 14.5 % AO Auto Heme SS FIRST TEST FOR CONDITION OF INTEREST:FIND:PT:^MATT ENT:ORD: No (11/21/21 9:56 PM) Invalid Interpretation Code AO Auto Urine SS FLUAV RNA ENRIQUE+probe Ql (Upper resp) Negative (11/21/21 9:56 PM) Invalid Interpretation Code Negative AO Auto Urine SS FLUBV RNA ENRIQUE+probe Ql (Upper resp) Negative (11/21/21 9:56 PM) Invalid Interpretation Code Negative AO Auto Urine SS Glucose [Mass/Vol] 193 mg/dL Invalid Interpretation Code 80 - 115 mg/dL AO ADM SS HAS SYMPTOMS RELATED TO CONDITION OF INTEREST:FIND:PT:^MATT ENT:ORD: No (11/21/21 9:56 PM) Invalid Interpretation Code AO Auto Urine SS Hematocrit (Bld) [Volume fraction] 31.6 % Invalid Interpretation Code 37.0 - 47.0 % AO Auto Heme SS Hemoglobin (Bld) [Mass/Vol] 10.7 G/dL Invalid Interpretation Code 12.0 - 16.0 G/dL AO Auto Heme SS Illness or injury onset date and time [id number] Invalid Interpretation Code AO Auto Urine SS Lymphocyte, Absolute 1.20 103/mcL Invalid Interpretation Code 0.77 - 3.85 10^3/mcL AO Auto Heme SS Lymphocytes/100 WBC (Bld) 11.3 % Invalid Interpretation Code 10.0 - 50.0 % AO Auto Heme SS MCH (RBC) [Entitic mass] 29.6 pg Invalid Interpretation Code 27.0 - 31.2 pg AO Auto Heme SS MCHC (RBC) [Mass/Vol] 33.7 G/dL Invalid Interpretation Code 33.0 - 37.0 G/dL AO Auto Heme SS MCV (RBC) [Entitic vol] 87.7 fL Invalid Interpretation Code 80.0 - 94.0 fL AO Auto Heme SS Monocyte, Absolute 0.60 103/mcL Invalid Interpretation Code 0.15 - 1.00 10^3/mcL AO Auto Heme SS Monocytes/100 WBC (Bld) 6.1 % Invalid Interpretation Code 1.7 - 13.0 % AO Auto Heme SS Neutrophil, Absolute 8.70 103/mcL Invalid Interpretation Code 2.85 - 6.16 10^3/mcL AO Auto Heme SS Neutrophils/100 WBC (Bld) 82.2 % Invalid Interpretation Code 37.0 - 80.0 % AO Auto Heme SS Patient was hospitalized because of this condition No (11/21/21 9:56 PM) Invalid Interpretation Code AO Auto Urine SS Platelet mean volume (Bld) [Entitic vol] 8.3 fL Invalid Interpretation Code 7.4 - 10.4 fL AO Auto Heme SS Platelets (Bld) [#/Vol] 258 103/mcL Invalid Interpretation Code 130 - 400 10^3/mcL AO Auto Heme SS Potassium [Moles/Vol] 3.6 mmol/L Invalid Interpretation Code 3.5 - 5.1 mmol/L AO ADM SS status Not (11/21/21 9:56 PM) Invalid Interpretation Code AO Auto Urine SS RBC (Bld) [#/Vol] 3.60 106/mcL Invalid Interpretation Code 4.20 - 5.40 10^6/mcL AO Auto Heme SS RESIDES IN A CONGREGATE CARE SETTING:FIND:PT:^PATIE NT:ORD: No (11/21/21 9:56 PM) Invalid Interpretation Code AO Auto Urine SS RSV RNA ENRIQUE+probe Ql (Upper resp) Negative (11/21/21 9:56 PM) Invalid Interpretation Code Negative AO Auto Urine SS SARS-CoV-2 (COVID-19) RNA ENRIQUE+probe Ql (Resp) Negative (11/21/21 9:56 PM) Invalid Interpretation Code Negative AO Auto Urine SS SARS-CoV-2 (COVID-19) RNA ENRIQUE+probe Ql (Unsp spec) Negative results do not preclude SARS-CoV-2 infection and should not be used as the sole basis for patient management decisions. Negative results must be combined with clinical observations, patient history, and epidemiological information.There is a risk of false negative values resulting from improperly collected, transported, or handled specimens.There is a risk of false negative values due to the presence of sequence variants in the pathogen targets of the assay, procedural errors, amplification inhibitors in specimens, or inadequate numbers of organisms for amplification.[facility] SARS-CoV-2 Assay is a Real-Time reverse-transcriptase polymerase chain reaction (RT-PCR) based qualitative in vitro diagnostic test intended for the qualitative detection of nucleic acid from the SARS-CoV-2 in nasopharyngeal swab specimens collected from individuals suspected of COVID-19 by their healthcare provider. Testing is limited to laboratories certified under the Clinical Laboratory Improvement Amendments of 1988 (CLIA), 42 U.S.C. 263a, to perform moderate and high complexity tests. Invalid Interpretation Code AO Auto Urine SS Sodium [Moles/Vol] 137 mmol/L Invalid Interpretation Code 136 - 145 mmol/L AO ADM SS Urea nitrogen [Mass/Vol] 14 mg/dL Invalid Interpretation Code 7 - 18 mg/dL AO ADM SS Urea nitrogen/Creatinine [Mass ratio] 14 ratio Invalid Interpretation Code 7 - 27 ratio AO ADM SS WBC (Bld) [#/Vol] 10.60 103/mcL Invalid Interpretation Code 4.60 - 10.80 10^3/mcL AO Auto Heme SS LABORATORYOrdered By: SYSTEM SYSTEM on 11-21-2021 GFR 67 ml/min/1.73sqm Invalid Interpretation Code AO Chemistry S GFR Non- 55 ml/min/1.73sqm Invalid Interpretation Code AO Chemistry S LABORATORYOrdered By: Ju Griffin on 11-06-2021 Albumin BCP dye [Mass/Vol] 3.7 G/dL Invalid Interpretation Code 3.4 - 4.8 G/dL AO ADM SS Albumin/Globulin [Mass ratio] 1.2 {ratio} Invalid Interpretation Code 1.1 - 2.5 ratio AO ADM SS ALP [Catalytic activity/Vol] 55 U/L Invalid Interpretation Code 40 - 135 U/L AO ADM SS ALT With P-5'-P [Catalytic activity/Vol] 20 U/L Invalid Interpretation Code 14 - 59 U/L AO ADM SS AST With P-5'-P [Catalytic activity/Vol] 16 U/L Invalid Interpretation Code 10 - 40 U/L AO ADM SS Basophil, Absolute 0.00 103/mcL Invalid Interpretation Code 0.00 - 0.19 10^3/mcL AO Auto Heme SS Basophils/100 WBC (Bld) 0.7 % Invalid Interpretation Code 0.0 - 2.5 % AO Auto Heme SS Bilirubin [Mass/Vol] 0.3 mg/dL Invalid Interpretation Code 0.2 - 1.0 mg/dL AO ADM SS Calcium [Mass/Vol] 8.8 mg/dL Invalid Interpretation Code 8.4 - 10.2 mg/dL AO ADM SS Chloride [Moles/Vol] 108 mmol/L Invalid Interpretation Code 98 - 107 mmol/L AO ADM SS Cholesterol [Mass/Vol] 110 mg/dL Invalid Interpretation Code 0 - 200 mg/dL AO ADM SS Cholesterol in HDL [Mass/Vol] 43 mg/dL Invalid Interpretation Code 40 - 60 mg/dL AO ADM SS Cholesterol in LDL [Mass/Vol] 38 mg/dL Invalid Interpretation Code 0 - 130 mg/dL AO ADM SS CO2 [Moles/Vol] 30 mmol/L Invalid Interpretation Code 23 - 31 mmol/L AO ADM SS Creatinine [Mass/Vol] 1.17 mg/dL Invalid Interpretation Code 0.55 - 1.02 mg/dL AO ADM SS Electrolyte Balance 7.0 mEq/L Invalid Interpretation Code AO ADM SS Eosinophil, Absolute 0.10 103/mcL Invalid Interpretation Code 0.00 - 0.40 10^3/mcL AO Auto Heme SS Eosinophils/100 WBC (Bld) 1.8 % Invalid Interpretation Code 0.0 - 7.0 % AO Auto Heme SS Erythrocyte distribution width (RBC) [Ratio] 14.0 % Invalid Interpretation Code 11.5 - 14.5 % AO Auto Heme SS Globulin 3.0 G/dL Invalid Interpretation Code AO ADM SS Glucose [Mass/Vol] 205 mg/dL Invalid Interpretation Code 80 - 115 mg/dL AO ADM SS Hematocrit (Bld) [Volume fraction] 33.7 % Invalid Interpretation Code 37.0 - 47.0 % AO Auto Heme SS Hemoglobin (Bld) [Mass/Vol] 11.3 G/dL Invalid Interpretation Code 12.0 - 16.0 G/dL AO Auto Heme SS Lymphocyte, Absolute 2.00 103/mcL Invalid Interpretation Code 0.77 - 3.85 10^3/mcL AO Auto Heme SS Lymphocytes/100 WBC (Bld) 41.7 % Invalid Interpretation Code 10.0 - 50.0 % AO Auto Heme SS MCH (RBC) [Entitic mass] 29.8 pg Invalid Interpretation Code 27.0 - 31.2 pg AO Auto Heme SS MCHC (RBC) [Mass/Vol] 33.6 G/dL Invalid Interpretation Code 33.0 - 37.0 G/dL AO Auto Heme SS MCV (RBC) [Entitic vol] 88.7 fL Invalid Interpretation Code 80.0 - 94.0 fL AO Auto Heme SS Monocyte, Absolute 0.40 103/mcL Invalid Interpretation Code 0.15 - 1.00 10^3/mcL AO Auto Heme SS Monocytes/100 WBC (Bld) 8.0 % Invalid Interpretation Code 1.7 - 13.0 % AO Auto Heme SS Neutrophil, Absolute 2.30 103/mcL Invalid Interpretation Code 2.85 - 6.16 10^3/mcL AO Auto Heme SS Neutrophils/100 WBC (Bld) 47.8 % Invalid Interpretation Code 37.0 - 80.0 % AO Auto Heme SS Platelet mean volume (Bld) [Entitic vol] 9.1 fL Invalid Interpretation Code 7.4 - 10.4 fL AO Auto Heme SS Platelets (Bld) [#/Vol] 176 103/mcL Invalid Interpretation Code 130 - 400 10^3/mcL AO Auto Heme SS Potassium [Moles/Vol] 4.2 mmol/L Invalid Interpretation Code 3.5 - 5.1 mmol/L AO ADM SS Protein [Mass/Vol] 6.7 G/dL Invalid Interpretation Code 6.4 - 8.2 G/dL AO ADM SS RBC (Bld) [#/Vol] 3.79 106/mcL Invalid Interpretation Code 4.20 - 5.40 10^6/mcL AO Auto Heme SS Sodium [Moles/Vol] 145 mmol/L Invalid Interpretation Code 136 - 145 mmol/L AO ADM SS Triglyceride [Mass/Vol] 143 mg/dL Invalid Interpretation Code 0 - 150 mg/dL AO ADM SS TSH Qn 1.24 m[IU]/L Invalid Interpretation Code 0.36 - 3.74 mcIU/mL AO ADM SS Urea nitrogen [Mass/Vol] 19 mg/dL Invalid Interpretation Code 7 - 18 mg/dL AO ADM SS Urea nitrogen/Creatinine [Mass ratio] 16 ratio Invalid Interpretation Code 7 - 27 ratio AO ADM SS Vit. D 25-Hydroxy 27.4 ng/mL Invalid Interpretation Code AO ADM SS WBC (Bld) [#/Vol] 4.80 103/mcL Invalid Interpretation Code 4.60 - 10.80 10^3/mcL AO Auto Heme SS LABORATORYOrdered By: SYSTEM SYSTEM on 11-06-2021 GFR 56 ml/min/1.73sqm Invalid Interpretation Code AO Chemistry S GFR Non- 46 ml/min/1.73sqm Invalid Interpretation Code AO Chemistry S SURGICAL PATHOLOGYon 020 SURGICAL PATHOLOGY Specimen #: [id number] Submitting Physician: RADHA WEIR M.D. FINAL DIAGNOSIS A. Skin, left superior parietal scalp, shave biopsy - Hypertrophic actinic keratosis. B. Skin, right distal dorsal forearm, shave biopsy - Seborrheic keratosis, inflamed. C. Skin, right dorsal wrist, shave biopsy - Seborrheic keratosis. D. Skin, left lateral proximal pretibial region, shave biopsy - Seborrheic keratosis, inflamed. - Stasis changes. E. Skin, left distal pretibial region, shave biopsy - Actinic keratosis. - Stasis changes. ANITA/marlene 04/10/2020 Celi Bennett M.D. (Electronic Signature) SPECIMEN SUBMITTED A: SKIN, LEFT SUPERIOR PARIETAL SCALP, SHAVE BIOPSY B: SKIN, RIGHT DISTAL DORSAL FOREARM, SHAVE BIOPSY C: SKIN, RIGHT DORSAL WRIST, SHAVE BIOPSY D: SKIN, LEFT LATERAL PROXIMAL PRETIBIAL REGION, SHAVE BIOPSY E: SKIN, LEFT DISTAL PRETIBIAL REGION, SHAVE BIOPSY CLINICAL DATA A: HYPERTROPHIC ERYTHEMATOUS PAPULES WITH HYPERKERATOTIC SCALE; ACTINIC KERATOSIS B-C: STUCK ON INFLAMED PAPULES WITH CRUST; IRRITATED SEBORRHEIC KERATOSIS D-E: PEARLY TELANGIECTATIC PAPULE; BASAL CELL CARCINOMA GROSS DESCRIPTION A. Received in formalin is a 0.6 x 0.6 x 0.2 cm shave of skin. On the skin surface is a 0.6 cm, cutler-pink slightly elevated area. The specimen is bisected. Totally submitted in formalin in one cassette. B. Received in formalin is a 1.5 x 1.0 x 0.1 cm shave of skin. On the skin surface is a 1.5 cm, cutler bumpy area. The specimen is bisected. Totally submitted in formalin in one cassette. C. Received in formalin is a 0.8 x 0.7 x 0.1 cm shave of skin. On the skin surface is a 0.8 cm, cutler-pink flat area. The specimen is bisected. Totally submitted in formalin in one cassette. D. Received in formalin is a 0.5 x 0.4 x 0.1 cm shave of skin. On the skin surface is a 0.4 cm, cutler-pink flat area. The specimen is bisected. Totally submitted in formalin in one cassette. E. Received in formalin is a 0.6 x 0.6 x 0.1 cm shave of skin. On the skin surface is a 0.5 cm, cutler-pink flat area. The specimen is bisected. Totally submitted in formalin in one cassette. Gross examination performed at [facility], [address] [place] [address] JT 04/09/2020 10:54:28 PM Date of Report: 04/10/2020 Date of Procedure: 04/09/2020 Date of Receipt: 04/09/2020 Submitted by: RADHA WEIR M.D. Location: Diagnostic interpretation performed at [facility], [address] [place] [address]. CLIA Number: [id number] Normal [facility] Comment on above: Performed By: #### S #### See report for performing lab information. SURGICAL PATHOLOGYon 020 SURGICAL PATHOLOGY Specimen #: [id number] Submitting Physician: DIPTI GONZALEZ FINAL DIAGNOSIS A. Skin, right shoulder, shave biopsy - Basal cell carcinoma, superficial type, see comment. JOSE GUADALUPE/cj 01/17/2020 COMMENT The histologic features are compatible with a recurrent basal cell carcinoma. Fadi Solis M.D. (Electronic Signature) SPECIMEN SUBMITTED A: SKIN, RIGHT SHOULDER, SHAVE BIOPSY CLINICAL DATA MORPHOLOGY: ARISING FROM PREVIOUS SURGICAL SCAR DDX: RECURRENT BASAL CELL CARCINOMA GROSS DESCRIPTION A. Received in formalin is a 1.8 x 1.1 x 0.2 cm shave of skin. On the skin surface is a 1.1 cm, cutler-brown patchy area. The specimen is bisected. Totally submitted in formalin in one cassette. Gross examination performed at [facility], [address] [place] [address] 01/16/2020 11:35:43 PM Date of Report: 01/17/2020 Date of Procedure: 01/16/2020 Date of Receipt: 01/16/2020 Submitted by: DIPTI GONZALEZ Location: Diagnostic interpretation performed at [facility], [address] [place] [address]. CLIA Number: [id number] Normal [facility] Comment on above: Performed By: #### S #### See report for performing lab information. Vital Signs Date Time Vital Sign Value Performing Clinician Facility 04-20-2025 14:41-0400 Body temperature 98.7 [degF] Dr. Marci Lopez DO Work Phone: [facility] 04-20-2025 14:41-0400 Diastolic blood pressure 57 mm[Hg] Dr. Marci Lopez DO Work Phone: [facility] 04-20-2025 14:41-0400 Heart rate 60 /min Dr. Marci Lopez DO Work Phone: 5(029)106-921391 [place] [address] 04-20-2025 14:41-0400 Respiratory rate 16 /min Dr. Marci Lopez DO Work Phone: [facility] 04-20-2025 14:41-0400 SaO2% (BldA) [Mass fraction] 97 % Dr. Marci Lopez DO Work Phone: [facility] 04-20-2025 14:41-0400 Systolic blood pressure 136 mm[Hg] Dr. Marci Lopez DO Work Phone: [facility] 04-19-2025 13:18-0400 Body height 172.[address] Macri Lopez DO Work Phone: [facility] 04-19-2025 13:18-0400 Body mass index (BMI) [Ratio] 20.7 kg/m2 Dr. Marci Lopez DO Work Phone: [facility] 04-19-2025 13:18-0400 Body weight [address] Marci Lopez DO Work Phone: [facility] 04-19-2025 12:00-0400 Diastolic blood pressure 75 mm[Hg] Dr. Marci Lopez DO Work Phone: [facility] 04-19-2025 12:00-0400 Heart rate 77 /min Dr. Marci Lopez DO Work Phone: [facility] 04-19-2025 12:00-0400 Respiratory rate 18 /min Dr. Marci Lopez DO Work Phone: [facility] 04-19-2025 12:00-0400 SaO2% (BldA) [Mass fraction] 96 % Dr. Marci Lopez DO Work Phone: [facility] 04-19-2025 12:00-0400 Systolic blood pressure 174 mm[Hg] Dr. Marci Lopez DO Work Phone: [facility] 04-19-2025 11:30-0400 Body temperature 98 [degF] Dr. Marci Lopez DO Work Phone: [facility] 04-19-2025 03:35-0400 Body height 172.[address] Marci Lopez DO Work Phone: [facility] 04-19-2025 03:35-0400 Body mass index (BMI) [Ratio] 21.6 kg/m2 Dr. Marci Lopez DO Work Phone: [facility] 04-19-2025 03:35-0400 Body weight 64.[address] Marci Lopez DO Work Phone: [facility] 04-04-2025 12:35-0400 Diastolic blood pressure 47 mm[Hg] Mri (1.5t) [facility] 04-04-2025 12:35-0400 Heart rate 90 /min Mri (1.5t) [facility] Comment on above: pacer taken out of MRI safe mode 04-04-2025 12:35-0400 Respiratory rate 18 /min [facility] 04-04-2025 12:35-0400 SaO2% (BldA) [Mass fraction] 98 % Mri (1.5t) [facility] 04-04-2025 12:35-0400 Systolic blood pressure 125 mm[Hg] Mri (1.5t) [facility] 03-10-2025 14:00-0400 Diastolic blood pressure 70 mm[Hg] Dr. Marci Lopez DO Work Phone: [facility] 03-10-2025 14:00-0400 Heart rate 60 /min Dr. Marci Lopez DO Work Phone: [facility] 03-10-2025 14:00-0400 Respiratory rate 18 /min Dr. Marci Lopez DO Work Phone: [facility] 03-10-2025 14:00-0400 SaO2% (BldA) [Mass fraction] 97 % Dr. Marci Lopez DO Work Phone: [facility] 03-10-2025 14:00-0400 Systolic blood pressure 151 mm[Hg] Dr. Marci Lopez DO Work Phone: [facility] 03-10-2025 11:28-0400 Body mass index (BMI) [Ratio] 20.9 kg/m2 Dr. Marci Lopez DO Work Phone: [facility] 03-10-2025 11:28-0400 Body weight 62.[address] Marci Lopez DO Work Phone: [facility] 03-10-2025 11:27-0400 Body height 172.[address] Marci Lopez DO Work Phone: [facility] 03-10-2025 11:27-0400 Body temperature 97.8 [degF] Dr. Marci Lopez DO Work Phone: [facility] 02-27-2025 15:22-0400 Body mass index (BMI) [Ratio] 20.78 kg/m2 Leyla Murphy MD Work Phone: [facility] 02-27-2025 15:22-0400 Body weight 62 kg Leyla Murphy MD Work Phone: [facility] 02-27-2025 15:22-0400 SaO2% (BldA) [Mass fraction] 96 % Leyla Murphy MD Work Phone: [facility] 02-13-2025 09:10-0400 Body mass index (BMI) [Ratio] 20.7 kg/m2 Dr. Marci Lopez DO Work Phone: [facility] 02-13-2025 09:10-0400 Body weight 61.[address] Marci Lopez DO Work Phone: [facility] 02-13-2025 09:10-0400 Diastolic blood pressure 67 mm[Hg] Dr. Marci Lopez DO Work Phone: [facility] 02-13-2025 09:10-0400 Systolic blood pressure 107 mm[Hg] Dr. Marci Lopez DO Work Phone: [facility] 01-23-2025 13:16-0500 Body temperature 97.3 [degF] Dr. Marci Lopez DO Work Phone: [facility] 01-23-2025 13:16-0500 Diastolic blood pressure 66 mm[Hg] Dr. Marci Lopez DO Work Phone: [facility] 01-23-2025 13:16-0500 Heart rate 62 /min Dr. Marci Lopez DO Work Phone: [facility] 01-23-2025 13:16-0500 Respiratory rate 16 /min Dr. Marci Lopez DO Work Phone: [facility] 01-23-2025 13:16-0500 SaO2% (BldA) [Mass fraction] 95 % Dr. Marci Lopez DO Work Phone: [facility] 01-23-2025 13:16-0500 Systolic blood pressure 121 mm[Hg] Dr. Marci Lopez DO Work Phone: [facility] 01-18-2025 08:06-0500 Body mass index (BMI) [Ratio] 20 kg/m2 Dr. Marci Lopez DO Work Phone: [facility] 01-18-2025 08:06-0500 Body weight 59.[address] Marci Lopez DO Work Phone: [facility] 01-18-2025 08:06-0500 Diastolic blood pressure 73 mm[Hg] Dr. Marci Lopez DO Work Phone: [facility] 01-18-2025 08:06-0500 Heart rate 97 /min Dr. Marci Lopez DO Work Phone: [facility] 01-18-2025 08:06-0500 Respiratory rate 18 /min Dr. Marci Lopez DO Work Phone: [facility] 01-18-2025 08:06-0500 SaO2% (BldA) [Mass fraction] 97 % Dr. Marci Lopez DO Work Phone: [facility] 01-18-2025 08:06-0500 Systolic blood pressure 114 mm[Hg] Dr. Marci Loepz DO Work Phone: [facility] 12-22-2024 11:30-0500 Diastolic blood pressure 75 mm[Hg] Dr. Marci Lopez DO Work Phone: [facility] 12-22-2024 11:30-0500 Heart rate 85 /min Dr. Marci Lopez DO Work Phone: [facility] 12-22-2024 11:30-0500 Respiratory rate 16 /min Dr. Marci Lopez DO Work Phone: [facility] 12-22-2024 11:30-0500 SaO2% (BldA) [Mass fraction] 99 % Dr. Marci Lopez DO Work Phone: [facility] 12-22-2024 11:30-0500 Systolic blood pressure 117 mm[Hg] Dr. Marci Lopez DO Work Phone: [facility] 12-19-2024 15:14-0500 Body temperature 98 [degF] Dr. Marci Lopez DO Work Phone: 4(056)987-608491 [place] [address] 12-19-2024 15:14-0500 Body weight 60.[address] Marci Lopez DO Work Phone: 6(088)629-606891 [place] [address] 12-19-2024 15:14-0500 Diastolic blood pressure 67 mm[Hg] Dr. Marci Lopez DO Work Phone: 7(124)762-784191 [place] [address] 12-19-2024 15:14-0500 Heart rate 74 /min Dr. Marci Lopez DO Work Phone: 1(561)853-595691 [place] [address] 12-19-2024 15:14-0500 Respiratory rate 16 /min Dr. Marci Lopez DO Work Phone: [facility] 12-19-2024 15:14-0500 SaO2% (BldA) [Mass fraction] 96 % Dr. Marci Lopez DO Work Phone: [facility] 12-19-2024 15:14-0500 Systolic blood pressure 123 mm[Hg] Dr. Marci Lopez DO Work Phone: [facility] 11-28-2024 13:54-0500 Body mass index (BMI) [Ratio] 20 kg/m2 Dr. Marci Lopez DO Work Phone: [facility] 11-28-2024 13:54-0500 Body weight 59.[address] Marci Lopez DO Work Phone: [facility] 11-28-2024 13:54-0500 Diastolic blood pressure 57 mm[Hg] Dr. Marci Lopez DO Work Phone: 2(002)261-376891 [place] [address] 11-28-2024 13:54-0500 Heart rate 85 /min Dr. Marci Lopez DO Work Phone: 0(383)410-118175 [address] 11-28-2024 13:54-0500 Respiratory rate 18 /min Dr. Marci Lopez DO Work Phone: 6(677)691-726575 [address] 11-28-2024 13:54-0500 SaO2% (BldA) [Mass fraction] 96 % Dr. Marci Lopez DO Work Phone: 0(666)464-323891 [place] [address] 11-28-2024 13:54-0500 Systolic blood pressure 92 mm[Hg] Dr. Marci Lopez DO Work Phone: 9(357)483-311075 [address] 11-18-2024 17:16-0500 Body temperature 98.7 [degF] Dr. Marci Lopez DO Work Phone: 8(708)117-894075 [address] 11-18-2024 17:16-0500 Heart rate 62 /min Dr. Marci Lopez DO Work Phone: 7(019)685-943875 [address] 11-18-2024 17:16-0500 Respiratory rate 18 /min Dr. Marci Lopez DO Work Phone: 2(698)831-261391 [place] [address] 11-18-2024 17:16-0500 SaO2% (BldA) [Mass fraction] 97 % Dr. Marci Lopez DO Work Phone: 2(819)727-314475 [address] 11-18-2024 14:20-0500 Diastolic blood pressure 74 mm[Hg] Dr. Marci Lopez DO Work Phone: 2(850)227-026475 [address] 11-18-2024 14:20-0500 Systolic blood pressure 122 mm[Hg] Dr. Marci Lopez DO Work Phone: 0(177)932-648875 [address] 08-01-2024 15:26-0400 Body weight 59.[address] Marci Lopez DO Work Phone: [facility] 05-17-2024 14:39-0400 Body height 172.7 cm Ghazala Gusman MD Work Phone: [facility] 05-17-2024 14:39-0400 Body mass index (BMI) [Ratio] 19.52 kg/m2 Ghazala Gusman MD Work Phone: [facility] 05-17-2024 14:39-0400 Body weight 58.24 kg Ghazala Gusman MD Work Phone: [facility] 05-17-2024 14:39-0400 Diastolic blood pressure 58 mm[Hg] Ghazala Gusman MD Work Phone: [facility] 05-17-2024 14:39-0400 Heart rate 72 /min Ghazala Gusman MD Work Phone: [facility] 05-17-2024 14:39-0400 SaO2% (BldA) [Mass fraction] 97 % Ghazala Gusman MD Work Phone: [facility] 05-17-2024 14:39-0400 Systolic blood pressure 95 mm[Hg] Ghazala Gusman MD Work Phone: [facility] 03-15-2024 09:18-0400 Heart rate 62 /min Dr. Adrienne Byers Work Phone: [facility] 03-15-2024 09:12-0400 Body temperature 97.7 [degF] Dr. Adrienne Byers Work Phone: [facility] 03-15-2024 09:12-0400 Diastolic blood pressure 50 mm[Hg] Dr. Adrienne Byers Work Phone: [facility] 03-15-2024 09:12-0400 Respiratory rate 16 /min Dr. Adrienne Byers Work Phone: [facility] 03-15-2024 09:12-0400 SaO2% (BldA) [Mass fraction] 96 % Dr. Adrienne Byers Work Phone: [facility] 03-15-2024 09:12-0400 Systolic blood pressure 122 mm[Hg] Dr. Adrienne Byers Work Phone: [facility] 03-14-2024 14:00-0400 Body mass index (BMI) [Ratio] 19.8 kg/m2 Dr. Adrienne Byers Work Phone: [facility] 03-14-2024 14:00-0400 Body weight 59.[address] Adrienne Byers Work Phone: [facility] 03-08-2024 12:02-0400 Body height 172.[address] Adrienne Byers Work Phone: [facility] 02-29-2024 09:30-0400 Body temperature 98.5 [degF] Dr. Adrienne Byers Work Phone: [facility] 02-29-2024 09:30-0400 Diastolic blood pressure 63 mm[Hg] Dr. Adrienne Byers Work Phone: [facility] 02-29-2024 09:30-0400 Heart rate 73 /min Dr. Adrienne Byers Work Phone: [facility] 02-29-2024 09:30-0400 Respiratory rate 16 /min Dr. Adrienne Byers Work Phone: [facility] 02-29-2024 09:30-0400 SaO2% (BldA) [Mass fraction] 95 % Dr. Adrienne Byers Work Phone: [facility] 02-29-2024 09:30-0400 Systolic blood pressure 118 mm[Hg] Dr. Adrienne Byers Work Phone: [facility] 02-26-2024 22:00-0400 Inhaled oxygen flow rate 2 L/min Dr. Adrienne Byers Work Phone: [facility] 02-25-2024 13:30-0400 Body height 172.[address] Adrienne Byers Work Phone: [facility] 02-25-2024 13:30-0400 Body weight 58.[address] Adrienne Byers Work Phone: [facility] 02-22-2024 11:00-0400 Body mass index (BMI) [Ratio] 19.5 kg/m2 Dr. Adrienne Byers Work Phone: [facility] 02-21-2024 19:53-0400 Body temperature 98.2 [degF] Dr. Adrienne Byers Work Phone: [facility] 02-21-2024 19:53-0400 Diastolic blood pressure 45 mm[Hg] Dr. Adrienne Byers Work Phone: 0(087)920-764152 [place] [address] 02-21-2024 19:53-0400 Heart rate 66 /min Dr. Adrienne Byers Work Phone: 0(337)320-260252 [place] [address] 02-21-2024 19:53-0400 Respiratory rate 20 /min Dr. Adrienne Byers Work Phone: [facility] 02-21-2024 19:53-0400 SaO2% (BldA) [Mass fraction] 97 % Dr. Adrienne Byers Work Phone: [facility] 02-21-2024 19:53-0400 Systolic blood pressure 105 mm[Hg] Dr. Adrienne Byers Work Phone: [facility] 02-21-2024 15:33-0400 Body mass index (BMI) [Ratio] 20.2 kg/m2 Dr. Adrienne Byers Work Phone: [facility] 02-21-2024 15:33-0400 Body weight 60.[address] Adrienne Byers Work Phone: [facility] 02-21-2024 15:32-0400 Body height 172.[address] Adrienne Byers Work Phone: [facility] 02-19-2024 18:33-0400 Body temperature 98.3 [degF] [facility] 02-19-2024 18:33-0400 Diastolic blood pressure 74 mm[Hg] [facility] 02-19-2024 18:33-0400 Heart rate 76 /min [facility] 02-19-2024 18:33-0400 Respiratory rate 16 /min [facility] 02-19-2024 18:33-0400 SaO2% (BldA) [Mass fraction] 96 % [facility] 02-19-2024 18:33-0400 Systolic blood pressure 127 mm[Hg] [facility] 02-19-2024 15:07-0400 Body height 172.72 cm [facility] 02-19-2024 15:07-0400 Body mass index (BMI) [Ratio] 19.8 kg/m2 [facility] 02-19-2024 15:07-0400 Body weight 59.23 kg [facility] 12-08-2023 18:27-0500 Diastolic blood pressure 66 mm[Hg] Dr. Adrienne Byers Work Phone: [facility] 12-08-2023 18:27-0500 Heart rate 77 /min Dr. Adrienne Byers Work Phone: [facility] 12-08-2023 18:27-0500 Respiratory rate 16 /min Dr. Adrienne Byers Work Phone: [facility] 12-08-2023 18:27-0500 SaO2% (BldA) [Mass fraction] 99 % Dr. Adrienne Byers Work Phone: [facility] 12-08-2023 18:27-0500 Systolic blood pressure 118 mm[Hg] Dr. Adrienne Byers Work Phone: [facility] 12-08-2023 15:46-0500 Body mass index (BMI) [Ratio] 20.7 kg/m2 Dr. Adrienne Byers Work Phone: [facility] 12-08-2023 15:46-0500 Body weight 61.[address] Adrienne Byers Work Phone: [facility] 12-08-2023 13:03-0500 Body height 172.[address] Adrienne Byers Work Phone: [facility] 12-08-2023 13:03-0500 Body temperature 96.7 [degF] Dr. Adrienne Byers Work Phone: [facility] 10-12-2023 13:31-0500 Body mass index (BMI) [Ratio] 21.1 kg/m2 Dr. Adrienne Byers Work Phone: [facility] 10-12-2023 08:40-0500 Body temperature 97.8 [degF] Dr. Adrienne Byers Work Phone: [facility] 10-12-2023 08:40-0500 Diastolic blood pressure 67 mm[Hg] Dr. Adrienne Byers Work Phone: [facility] 10-12-2023 08:40-0500 Heart rate 60 /min Dr. Adrienne Byers Work Phone: [facility] 10-12-2023 08:40-0500 Respiratory rate 14 /min Dr. Adrienne Byers Work Phone: [facility] 10-12-2023 08:40-0500 SaO2% (BldA) [Mass fraction] 100 % Dr. Adrienne Byers Work Phone: [facility] 10-12-2023 08:40-0500 Systolic blood pressure 143 mm[Hg] Dr. Adrienne Byers Work Phone: [facility] 10-12-2023 06:00-0500 Body weight 63.[address] Adrienne Byers Work Phone: [facility] 10-07-2023 15:14-0500 Body height 172.[address] Adrienne Byers Work Phone: [facility] 10-07-2023 15:04-0500 Diastolic blood pressure 93 mm[Hg] Dr. Adrienne Byers Work Phone: [facility] 10-07-2023 15:04-0500 Heart rate 61 /min Dr. Adrienne Byers Work Phone: [facility] 10-07-2023 15:04-0500 Respiratory rate 18 /min Dr. Adrienne Byers Work Phone: [facility] 10-07-2023 15:04-0500 SaO2% (BldA) [Mass fraction] 97 % Dr. Adrienne Byers Work Phone: [facility] 10-07-2023 15:04-0500 Systolic blood pressure 107 mm[Hg] Dr. Adrienne Byers Work Phone: [facility] 10-07-2023 13:04-0500 Body height 172.[address] Adrienne Byers Work Phone: [facility] 10-07-2023 13:04-0500 Body mass index (BMI) [Ratio] 21.2 kg/m2 Dr. Adrienne Byers Work Phone: [facility] 10-07-2023 13:04-0500 Body weight 63.[address] Adrienne Byers Work Phone: [facility] 10-07-2023 12:35-0500 Body temperature 97.8 [degF] Dr. Adrienne Byers Work Phone: [facility] 10-07-2023 09:42-0500 Diastolic blood pressure 47 mm[Hg] Dr. Adrienne Byers Work Phone: [facility] 10-07-2023 09:42-0500 Heart rate 75 /min Dr. Adrienne Byers Work Phone: [facility] 10-07-2023 09:42-0500 Systolic blood pressure 103 mm[Hg] Dr. Adrienne Byers Work Phone: [facility] 10-06-2023 16:00-0500 Body temperature 97.7 [degF] Dr. Adrienne Byers Work Phone: [facility] 10-06-2023 16:00-0500 Respiratory rate 14 /min Dr. Adrienne Byers Work Phone: [facility] 10-06-2023 16:00-0500 SaO2% (BldA) [Mass fraction] 97 % Dr. Adrienne Byers Work Phone: [facility] 10-06-2023 15:02-0500 Body weight 61.[address] Adrienne Byers Work Phone: [facility] 10-05-2023 11:08-0500 Body mass index (BMI) [Ratio] 20.5 kg/m2 Dr. Adrienne Byers Work Phone: [facility] 10-01-2023 14:27-0500 Body mass index (BMI) [Ratio] 20.8 kg/m2 Dr. Adrienne Byers Work Phone: [facility] 10-01-2023 13:40-0500 Body temperature 98.1 [degF] Dr. Adrienne Byers Work Phone: [facility] 10-01-2023 13:40-0500 Diastolic blood pressure 68 mm[Hg] Dr. Adrienne Byers Work Phone: [facility] 10-01-2023 13:40-0500 Heart rate 65 /min Dr. Adrienne Byers Work Phone: [facility] 10-01-2023 13:40-0500 Respiratory rate 18 /min Dr. Adrienne Byers Work Phone: [facility] 10-01-2023 13:40-0500 SaO2% (BldA) [Mass fraction] 97 % Dr. Adrienne Byers Work Phone: [facility] 10-01-2023 13:40-0500 Systolic blood pressure 138 mm[Hg] Dr. Adrienne Byers Work Phone: [facility] 09-29-2023 14:06-0500 Body height 170.[address] Adrienne Byers Work Phone: [facility] 09-29-2023 14:06-0500 Body weight 60.[address] Adrienne Byers Work Phone: [facility] 09-28-2023 22:00-0500 Diastolic blood pressure 77 mm[Hg] [facility] 09-28-2023 22:00-0500 Heart rate 63 /min [facility] 09-28-2023 22:00-0500 Respiratory rate 18 /min [facility] 09-28-2023 22:00-0500 SaO2% (BldA) [Mass fraction] 99 % [facility] 09-28-2023 22:00-0500 Systolic blood pressure 152 mm[Hg] [facility] 09-28-2023 20:41-0500 Body height 170.18 cm [facility] 09-28-2023 20:41-0500 Body mass index (BMI) [Ratio] 21.4 kg/m2 [facility] 09-28-2023 20:41-0500 Body weight 61.9 kg [facility] 09-28-2023 20:00-0500 Body temperature 98.1 [degF] [facility] 08-18-2023 12:08-0400 Body temperature 98.6 [degF] JAXON KUHN MD [facility] 08-18-2023 12:08-0400 Diastolic Blood Pressure Non-Invasive 63 1 JAXON KUHN MD [facility] 08-18-2023 12:08-0400 Heart rate 73 /min JAXON KUHN MD [facility] 08-18-2023 12:08-0400 Respiratory rate 16 /min JAXON KUHN MD [facility] 08-18-2023 12:08-0400 Systolic Blood Pressure Non-Invasive 94 1 JAXON KUHN MD [facility] 08-11-2023 06:42-0400 Body temperature 98.24 [degF] JAXON KHUN MD [facility] 08-11-2023 06:42-0400 Diastolic Blood Pressure Non-Invasive 61 1 JAXON KUHN MD [facility] 08-11-2023 06:42-0400 Heart rate 61 /min JAXON KUHN MD [facility] 08-11-2023 06:42-0400 Respiratory rate 18 /min JAXON KUHN MD [facility] 08-11-2023 06:42-0400 Systolic Blood Pressure Non-Invasive 106 1 JAXON KUHN MD [facility] 08-04-2023 12:09-0400 Body height 172.7 cm JAXON KUHN MD [facility] 08-04-2023 12:09-0400 Body temperature 98.6 [degF] JAXON KUHN MD [facility] 08-04-2023 12:09-0400 Body weight 63 kg JAXON KUHN MD [facility] 08-04-2023 12:09-0400 Diastolic Blood Pressure Non-Invasive 60 1 JAXON KUHN MD [facility] 08-04-2023 12:09-0400 Heart rate 60 /min JAXON KUHN MD [facility] 08-04-2023 12:09-0400 Respiratory rate 18 /min JAXON KUHN MD [facility] 08-04-2023 12:09-0400 Systolic Blood Pressure Non-Invasive 104 1 JAXON KUHN MD [facility] 05-12-2023 13:28-0400 Body height 172.7 cm Ghazala Gusman MD Work Phone: [facility] 05-12-2023 13:28-0400 Body weight 62.14 kg Ghazala Gusman MD Work Phone: [facility] 05-12-2023 13:28-0400 Diastolic blood pressure 57 mm[Hg] Ghazala Gusman MD Work Phone: [facility] 05-12-2023 13:28-0400 Heart rate 73 /min Ghazala Gusman MD Work Phone: [facility] 05-12-2023 13:28-0400 Respiratory rate 20 /min Ghazala Gusman MD Work Phone: [facility] 05-12-2023 13:28-0400 SaO2% (BldA) [Mass fraction] 97 % Ghazala Gusman MD Work Phone: [facility] 05-12-2023 13:28-0400 Systolic blood pressure 102 mm[Hg] Ghazala Gusman MD Work Phone: [facility] 08-20-2022 00:26-0400 Diastolic blood pressure 33 mm[Hg] DR AKIN SALGUERO DO [facility] 08-20-2022 00:26-0400 Heart rate 60 /min DR AKIN SALGUERO DO [facility] 08-20-2022 00:26-0400 Respiratory rate 16 /min DR AKIN SALGUERO DO [facility] 08-20-2022 00:26-0400 Systolic blood pressure 102 mm[Hg] DR AKIN SALGUERO DO [facility] 08-20-2022 00:09-0400 Diastolic blood pressure 33 mm[Hg] DR AKIN SALGUERO DO [facility] 08-20-2022 00:09-0400 Heart rate 60 /min AKIN JOSE M DO [facility] 08-20-2022 00:09-0400 Reason For Taking VItal Signs DR GERARDO MARLONAUDI DO [facility] 08-20-2022 00:09-0400 Respiratory rate 16 /min DR GERARDO MARLONAUDI DO [facility] 08-20-2022 00:09-0400 Systolic blood pressure 102 mm[Hg] DR GERARDO MARLONAUDI DO [facility] 08-19-2022 23:40-0400 Diastolic blood pressure 70 mm[Hg] DR GERARDO MARLONAUDI DO [facility] 08-19-2022 23:40-0400 Heart rate 60 /min DR GERARDO MARLONAUDI DO [facility] 08-19-2022 23:40-0400 Mean blood pressure 79 mm[Hg] DR GERARDO MARLONAUDI DO [facility] 08-19-2022 23:40-0400 Respiratory rate 12 /min DR GERARDO JOSE M DO [facility] 08-19-2022 23:40-0400 Systolic blood pressure 96 mm[Hg] DR GERARDO MARLONAUDI DO [facility] 08-19-2022 15:07-0400 Body temperature 98.78 [degF] DR GERARDO MARLONAUDI DO [facility] 06-23-2022 15:16-0400 Body height 172.7 cm Sherif Ramirez MD Work Phone: [facility] 06-23-2022 15:16-0400 Body weight 65.32 kg Sherif Ramirez MD Work Phone: [facility] 06-23-2022 15:16-0400 Diastolic blood pressure 64 mm[Hg] Sherif Ramirez MD Work Phone: [facility] 06-23-2022 15:16-0400 Heart rate 75 /min Sherif Ramirez MD Work Phone: [facility] 06-23-2022 15:16-0400 SaO2% (BldA) [Mass fraction] 97 % Sherif Ramirez MD Work Phone: [facility] 06-23-2022 15:16-0400 Systolic blood pressure 116 mm[Hg] Sherif Ramirez MD Work Phone: [facility] 06-04-2022 13:42-0400 Diastolic blood pressure 67 mm[Hg] Ghazala Gusman MD Work Phone: [facility] 06-04-2022 13:42-0400 Heart rate 77 /min Ghazala Gusman MD Work Phone: [facility] 06-04-2022 13:42-0400 SaO2% (BldA) [Mass fraction] 98 % Ghazala Gusman MD Work Phone: [facility] 06-04-2022 13:42-0400 Systolic blood pressure 115 mm[Hg] Ghazala Gusman MD Work Phone: [facility] 05-22-2022 15:55-0400 Diastolic blood pressure 60 mm[Hg] NOREEN HICKS MD [facility] 05-22-2022 15:55-0400 Heart rate 60 /min NOREEN HICKS MD [facility] 05-22-2022 15:55-0400 Respiratory rate 16 /min NOREEN HICKS MD [facility] 05-22-2022 15:55-0400 Systolic blood pressure 130 mm[Hg] NOREEN HICKS MD [facility] 05-22-2022 15:45-0400 Diastolic blood pressure 60 mm[Hg] NOREEN HICKS MD [facility] 05-22-2022 15:45-0400 Heart rate 60 /min NOREEN HICKS MD [facility] 05-22-2022 15:45-0400 Respiratory rate 11 /min NOREEN HICKS MD [facility] 05-22-2022 15:45-0400 Systolic blood pressure 130 mm[Hg] NOREEN HICKS MD [facility] 05-22-2022 15:30-0400 Diastolic blood pressure 50 mm[Hg] NOREEN HICKS MD [facility] 05-22-2022 15:30-0400 Heart rate 60 /min NOREEN HICKS MD [facility] 05-22-2022 15:30-0400 Respiratory rate 12 /min NOREEN HICKS MD [facility] 05-22-2022 15:30-0400 Systolic blood pressure 135 mm[Hg] NOREEN HICKS MD [facility] 05-22-2022 12:54-0400 Body weight 72.4 kg NOREEN HICKS MD [facility] 05-22-2022 12:46-0400 Body temperature 100.22 [degF] NOREEN HICKS MD [facility] 05-22-2022 12:46-0400 Heart rate 89 /min NOREEN HICKS MD [facility] 04-25-2022 23:34-0400 Body temperature 98.24 [degF] NATAN REICHRkylin DO [facility] 04-25-2022 23:34-0400 Diastolic blood pressure 66 mm[Hg] NATAN REICHFIELD DO [facility] 04-25-2022 23:34-0400 Heart rate 71 /min NATAN REICHFIELD DO [facility] 04-25-2022 23:34-0400 Systolic blood pressure 122 mm[Hg] NATAN ARRIETA DO [facility] 04-03-2022 15:58-0400 diastolic 56 mm[Hg] DR JAC CHRISTENSEN MD [facility] 04-03-2022 15:58-0400 Heart rate 53 /min DR JAC CHRISTENSEN MD [facility] 04-03-2022 15:58-0400 systolic 98 mm[Hg] DR JAC CHRISTENSEN MD [facility] 04-03-2022 14:50-0400 Body temperature 98.06 [degF] DR JAC CHRISTENSEN MD [facility] 04-03-2022 14:50-0400 diastolic 60 mm[Hg] DR JAC CHRISTENSEN MD [facility] 04-03-2022 14:50-0400 Heart rate 62 /min DR JAC CHRISTENSEN MD [facility] 04-03-2022 14:50-0400 Respiratory rate 18 /min DR JAC CHRISTENSEN MD [facility] 04-03-2022 14:50-0400 systolic 105 mm[Hg] DR JAC CHRISTENSEN MD [facility] 04-02-2022 16:13-0400 Diastolic blood pressure 56 mm[Hg] DR JAC CHRISTENSEN MD [facility] 04-02-2022 16:13-0400 Heart rate 60 /min DR JAC CHRISTENSEN MD [address] [place] [address] 04-02-2022 16:13-0400 Mean blood pressure 72 mm[Hg] DR JAC CHRISTENSEN MD [address] [place] [address] 04-02-2022 16:13-0400 Respiratory rate 18 /min DR JAC CHRISTENSEN MD [address] [place] [address] 04-02-2022 16:13-0400 Systolic blood pressure 103 mm[Hg] DR JAC CHRISTENSEN MD [address] 04-02-2022 14:54-0400 diastolic 51 mm[Hg] DR JAC CHRISTENSEN MD [address] 04-02-2022 14:54-0400 Heart rate 67 /min DR JAC CHRISTENSEN MD [address] 04-02-2022 14:54-0400 Respiratory rate 18 /min DR JAC CHRISTENSEN MD [address] [place] [address] 04-02-2022 14:54-0400 systolic 101 mm[Hg] DR JAC CHRISTENSEN MD [address] 12-25-2021 16:07-0500 Body temperature 97.52 [degF] MITCHELL MARY MD [address] [place] [address] 12-25-2021 16:07-0500 Diastolic Blood Pressure NBP 46 1 MITCHELL MARY MD [facility] 12-25-2021 16:07-0500 Heart rate 70 /min MITCHELL MARY MD [facility] 12-25-2021 16:07-0500 Mean blood pressure 58 mm[Hg] MITCHELL MARY MD [facility] 12-25-2021 16:07-0500 Reason For Taking VItal Signs MITCHELL MARY MD [facility] 12-25-2021 16:07-0500 Respiratory rate 16 /min MITCHELL MARY MD [address] [place] [address] 12-25-2021 16:07-0500 Systolic Blood Pressure NBP 94 1 MITCHELL MARY MD [facility] 12-25-2021 11:52-0500 Heart rate 75 /min MITCHELL MARY MD [facility] 12-25-2021 11:52-0500 Reason For Taking VItal Signs MITCHELL MARY MD [facility] 12-25-2021 11:43-0500 Heart rate 67 /min MITCHELL MARY MD [facility] 12-25-2021 11:43-0500 Reason For Taking VItal Signs MITCHELL MARY MD [facility] 12-25-2021 10:58-0500 Body temperature 98.06 [degF] MITCHELL MARY MD [facility] 12-25-2021 10:58-0500 Diastolic Blood Pressure NBP 52 1 MITCHELL MARY MD [facility] 12-25-2021 10:58-0500 Systolic Blood Pressure NBP 115 1 MITCHELL MARY MD [address] [place] [address] 12-25-2021 08:44-0500 Heart rate 74 /min MITCHELL MARY MD [facility] 12-25-2021 06:53-0500 Body temperature 98.24 [degF] MITCHELL MARY MD [facility] 12-25-2021 06:53-0500 Diastolic Blood Pressure NBP 47 1 MITCHELL MARY MD [facility] 12-25-2021 06:53-0500 Systolic Blood Pressure NBP 118 1 MITCHELL MARY MD [facility] 12-24-2021 23:39-0500 Mean blood pressure 67 mm[Hg] MITCHELL MARY MD [facility] 12-24-2021 23:10-0500 Body temperature 96.8 [degF] MITCHELL MARY MD [facility] 12-24-2021 19:33-0500 Respiratory rate 20 /min MITCHELL MARY MD [facility] 12-24-2021 18:43-0500 Diastolic blood pressure 54 mm[Hg] MITCHELL MARY MD [facility] 12-24-2021 18:43-0500 Respiratory rate 20 /min MITCHELL MARY MD [facility] 12-24-2021 18:43-0500 Systolic blood pressure 110 mm[Hg] MITCHELL MARY MD [address] [place] [address] 12-24-2021 14:39-0500 Diastolic blood pressure 58 mm[Hg] MITCHELL MARY MD [facility] 12-24-2021 14:39-0500 Systolic blood pressure 112 mm[Hg] MITCHELL MARY MD [address] [place] [address] 12-24-2021 10:50-0500 Diastolic blood pressure 62 mm[Hg] MITCHELL MARY MD [facility] 12-24-2021 10:50-0500 Systolic blood pressure 128 mm[Hg] MITCHELL MARY MD [facility] 12-24-2021 08:09-0500 Heart rate 76 /min MITCHELL MARY MD [facility] 12-24-2021 06:38-0500 Body temperature 97.52 [degF] MITCHELL MARY MD [facility] 12-24-2021 04:49-0500 Body temperature 97.34 [degF] MITCHELL MARY MD [facility] 12-24-2021 04:49-0500 Mean blood pressure 92 mm[Hg] MITCHELL MARY MD [facility] 12-24-2021 02:11-0500 Body height 172.7 cm MITCHELL MARY MD [facility] 12-24-2021 02:11-0500 Body weight 71.4 kg MITCHELL MARY MD [facility] 12-24-2021 02:11-0500 Body weight 23.94 kg/m2 MITCHELL MARY MD [facility] 12-24-2021 02:10-0500 Body weight 71.4 kg MITCHELL MARY MD [facility] 12-24-2021 01:58-0500 Mean blood pressure 116 mm[Hg] MITCHELL MARY MD [facility] 12-23-2021 23:33-0500 Diastolic blood pressure 65 mm[Hg] CATHY ALMA FOWLER [facility] 12-23-2021 23:33-0500 Heart rate 73 /min CATHY JOHNSONT DO [facility] 12-23-2021 23:33-0500 Respiratory rate 24 /min CATHY JOHNSONT DO [facility] 12-23-2021 23:33-0500 Systolic blood pressure 129 mm[Hg] CATHY JOHNSONT DO [facility] 12-23-2021 23:00-0500 Diastolic blood pressure 96 mm[Hg] CATHY FROMMELT DO [facility] 12-23-2021 23:00-0500 Heart rate 75 /min CATHY FROMMELT DO [facility] 12-23-2021 23:00-0500 Respiratory rate 17 /min CATHY FROMMELT DO [facility] 12-23-2021 23:00-0500 Systolic blood pressure 136 mm[Hg] CATHY FROMMELT DO [facility] 12-23-2021 22:36-0500 Diastolic blood pressure 71 mm[Hg] CATHY FROMMELT DO [facility] 12-23-2021 22:36-0500 Heart rate 76 /min CATHY FROMMELT DO [facility] 12-23-2021 22:36-0500 Respiratory rate 24 /min CATHY FROMMELT DO [facility] 12-23-2021 22:36-0500 Systolic blood pressure 137 mm[Hg] CATHY FROMMELT DO [facility] 12-23-2021 19:16-0500 Body temperature 98.06 [degF] CATHY FROMMELT DO [facility] 12-23-2021 19:16-0500 Heart rate 77 /min CATHY FROMMELT DO [facility] 12-05-2021 11:12-0500 Heart rate 66 /min MARTHA PILLAI MD [facility] 12-05-2021 10:59-0500 Body temperature 97.88 [degF] MARTHA PILLAI MD [facility] 12-05-2021 10:59-0500 Diastolic blood pressure 52 mm[Hg] MARTHA PILLAI MD [facility] 12-05-2021 10:59-0500 Heart rate 66 /min MARTHA PILLAI MD [facility] 12-05-2021 10:59-0500 Mean blood pressure 67 mm[Hg] MARTHA PILLAI MD [facility] 12-05-2021 10:59-0500 Systolic blood pressure 98 mm[Hg] MARTHA PILLAI MD [facility] 12-05-2021 08:51-0500 Heart rate 68 /min MARTHA PILLAI MD [facility] 12-05-2021 08:07-0500 Body temperature 97.34 [degF] MARTHA PILLAI MD [facility] 12-05-2021 08:07-0500 Diastolic blood pressure 56 mm[Hg] MARTHA PILLAI MD [facility] 12-05-2021 08:07-0500 Heart rate 63 /min MARTHA PILLAI MD [facility] 12-05-2021 08:07-0500 Mean blood pressure 70 mm[Hg] MARTHA PILLAI MD [facility] 12-05-2021 08:07-0500 Reason For Taking VItal Signs MARTHA PILLAI MD [facility] 12-05-2021 08:07-0500 Respiratory rate 18 /min MARTHA PILLAI MD [facility] 12-05-2021 08:07-0500 Systolic blood pressure 98 mm[Hg] MARTHA PILLAI MD [facility] 12-05-2021 04:00-0500 Diastolic blood pressure 60 mm[Hg] MARTHA PILLAI MD [facility] 12-05-2021 04:00-0500 Mean blood pressure 71 mm[Hg] MARTHA PILLAI MD [facility] 12-05-2021 04:00-0500 Reason For Taking VItal Signs MARTHA PILLAI MD [facility] 12-05-2021 04:00-0500 Systolic blood pressure 94 mm[Hg] MARTHA PILLAI MD [facility] 12-04-2021 21:57-0500 Body temperature 98.24 [degF] MARTHA PILLAI MD [facility] 12-04-2021 21:57-0500 Reason For Taking VItal Signs MARTHA PILLAI MD [facility] 12-04-2021 21:57-0500 Respiratory rate 18 /min MARTHA PILLAI MD [facility] 12-04-2021 17:12-0500 Diastolic Blood Pressure NBP 44 1 MARTHA PILLAI MD [facility] 12-04-2021 17:12-0500 Mean blood pressure 60 mm[Hg] MARTHA PILLAI MD [facility] 12-04-2021 17:12-0500 Systolic Blood Pressure NBP 95 1 MARTHA PILLAI MD [facility] 12-04-2021 16:08-0500 Diastolic Blood Pressure NBP 47 1 MARTHA PILLAI MD [facility] 12-04-2021 16:08-0500 Systolic Blood Pressure NBP 100 1 MARTHA PILLAI MD [facility] 12-04-2021 02:01-0500 Diastolic Blood Pressure NBP 50 1 MARTHA PILLAI MD [facility] 12-04-2021 02:01-0500 Mean blood pressure 64 mm[Hg] MARTHA PILLAI MD [facility] 12-04-2021 02:01-0500 Systolic Blood Pressure NBP 96 1 MARTHA PILLAI MD [facility] 12-03-2021 19:51-0500 Mean blood pressure 62 mm[Hg] MARTHA PILLAI MD [facility] 12-03-2021 10:50-0500 Heart rate 67 /min MARTHA PILLAI MD [facility] 12-01-2021 13:15-0500 SaO2% (BldA) [Mass fraction] 93.7 % MARTHA PILLAI MD [facility] 11-29-2021 23:28-0500 Body temperature 97.7 [degF] MARTHA PILLAI MD [facility] 11-29-2021 11:04-0500 diastolic 40 mm[Hg] MARTHA PILLAI MD [facility] 11-29-2021 11:04-0500 systolic 82 mm[Hg] MARTHA PILLAI MD [facility] 11-29-2021 11:04-0500 systolic 80 mm[Hg] MARTHA PILLAI MD [facility] 11-26-2021 07:40-0500 SaO2% (BldA) [Mass fraction] 95.0 % MARTHA PILLAI MD [facility] 11-25-2021 04:06-0500 SaO2% (BldA) [Mass fraction] 95.9 % MARTHA PILLAI MD [facility] 11-22-2021 04:04-0500 Body height 162 cm MARTHA PILLAI MD [facility] 11-22-2021 04:04-0500 Body weight 76.8 kg MARTHA PILLAI MD [facility] 11-22-2021 04:04-0500 Body weight 29.26 kg/m2 MARTHA PILLAI MD [facility] 11-22-2021 02:05-0500 Diastolic blood pressure 55 mm[Hg] JAXON KUHN MD [facility] 11-22-2021 02:05-0500 Heart rate 74 /min JAXON KUHN MD [facility] 11-22-2021 02:05-0500 Respiratory rate 12 /min JAXON KUHN MD [facility] 11-22-2021 02:05-0500 Systolic blood pressure 88 mm[Hg] JAXON KUHN MD [facility] 11-22-2021 01:34-0500 Diastolic blood pressure 49 mm[Hg] JAXON KUHN MD [facility] 11-22-2021 01:34-0500 Systolic blood pressure 93 mm[Hg] JAXON KUHN MD [facility] 11-22-2021 01:30-0500 Heart rate 88 /min JAXON KUHN MD [facility] 11-22-2021 01:30-0500 Respiratory rate 16 /min JAXON KUHN MD [facility] 11-22-2021 01:15-0500 Diastolic blood pressure 58 mm[Hg] JAXON KUHN MD [facility] 11-22-2021 01:15-0500 Heart rate 101 /min JAXON KUHN MD [facility] 11-22-2021 01:15-0500 Respiratory rate 15 /min JAXON KUHN MD [facility] 11-22-2021 01:15-0500 Systolic blood pressure 100 mm[Hg] JAXON KUHN MD [facility] 11-22-2021 00:29-0500 SaO2% (BldA) [Mass fraction] 100 % JAXON KUHN MD [facility] 11-21-2021 21:58-0500 Body temperature 98.42 [degF] JAXON KUHN MD [facility] 11-21-2021 21:58-0500 Heart rate 130 /min JAXON KUHN MD [facility] Encounters Encounter Date Encounter Type Care Provider Facility Start: 04-25-2025 ambulatory Shan Friend Facility :[facility] Start: 04-23-2025 End: 04-23-2025 Specialty Pharmacy Wesley Hayes [facility] Work Phone: [facility] Special[facility] Pharm[facility] Comment on above: [facility] Neurology - Medi cation Refill (Autedo ) Start: 04-20-2025 Evaluation and management of inpatient Marci Lopez Facility:[facility] Start: 04-20-2025 Non-patient / Non-visit Dr. Maximo Orosco DO -[facility] Work Phone: Start: 04-19-2025 End: 04-20-2025 ambulatory Maximo Orosco Facility:[facility] Start: 04-19-2025 End: 04-20-2025 Evaluation and management of inpatient Dr. Maximo Orosco DO -Medical Surgical 3 Work Phone: Start: 04-19-2025 End: 04-20-[address] Marci Lopez DO Work Phone: [facility] Work Phone: Start: 04-19-2025 End: 04-19-2025 Emergency department patient visit Dr. Marci Lopez DO Work Phone: -Emergency Department Work Phone: Start: 04-04-2025 ambulatory LEYLA MURPHY [facility] Start: 04-04-2025 End: 04-04-2025 Subsequent hospital visit by physician [facility] (1.5t) Radiology Comment on above: Essential tremor [G2 5.0] Start: 04-02-2025 End: 04-02-2025 Subsequent hospital visit by physician [facility] Work Phone: Radiology Comment on above: Presence of cardiac pacemaker [Z95.0] Start: 04-02-2025 End: 04-02-2025 ambulatory LEYLA MURPHY Facility:[facility] Start: 03-28-2025 End: 03-28-2025 ambulatory Trish Lyle [facility] Comment on above: Austedo XR approved Start: 03-28-2025 End: 03-28-2025 E-mail encounter from caregiver Trish Lyle [facility] Start: 03-28-2025 End: 03-28-2025 Telephone encounter Leyla Murphy MD Work Phone: Neurology Comment on above: Patient Question Start: 03-10-2025 End: 03-10-2025 ambulatory Linda Valdez RN [facility] Start: 03-10-2025 End: 03-10-2025 Patient encounter procedure Linda Valdez RN [facility] Start: 03-10-2025 End: 03-10-2025 Emergency department patient visit Dr. Marci Lopez DO Work Phone: -Emergency Department Work Phone: Start: 03-09-2025 End: 03-09-2025 Telephone encounter Leyla Murphy MD Work Phone: Neurology Comment on above: Orders (valbenazine (INGREZZA) 40 mg capsule) Start: 03-01-2025 End: 03-01-2025 Telephone encounter Leyla Murphy MD Work Phone: [facility] Start: 02-28-2025 End: 02-28-2025 ambulatory [facility] Work Phone: [facility] Start: 02-28-2025 End: 02-28-2025 Patient encounter procedure Wesley Hayes [facility] Work Phone: [facility] Specialty Pharmacy Comment on above: [facility] Neurology - Lina tment Referral (Ingrezza); Insurance Authorization ([place] Submission Pending) Start: 02-27-2025 End: 02-27-2025 ambulatory LEYLA MURPHY Facility:[facility] Start: 02-27-2025 End: 02-27-2025 Office outpatient visit 40 minutes Leyla Murphy MD Work Phone: Neurology Comment on above: Essential tremor (Pr imary Dx); Dyskinesia, tardive Start: 02-27-2025 End: 02-27-2025 Telephone encounter Leyla Murphy MD Work Phone: Neurology Comment on above: Appointment (MRI Bra in WO IVCON) Start: 02-14-2025 End: 02-14-2025 Patient encounter procedure Rosa ROWLEY -[facility] Work Phone: Start: 02-14-2025 End: 02-14-2025 ambulatory Rosa Rodriguez Facility[facility] Start: 02-13-2025 End: 02-13-2025 Patient encounter procedure Mayte COHEN -[facility] Work Phone: Start: 02-13-2025 End: 02-13-2025 ambulatory Marci Lopez Facility:[facility] Start: 01-28-2025 End: 01-29-2025 ambulatory Sari Parra RN [facility] Start: 01-28-2025 End: 01-29-2025 Patient encounter procedure Sari Parra RN [facility] Start: 01-23-2025 End: 01-23-[address] Luigi Tinoco MD -[facility] Work Phone: Start: 01-23-2025 End: 01-23-2025 ambulatory Marci Briegilberto Lopez Facility:[facility] Start: 01-22-2025 ambulatory Luigi Gonzales ty:[facility] Start: 01-22-[address] Kristen Tinoco MD -[facility] Start: 01-19-2025 End: 01-19-2025 Telephone encounter Leyla Murhpy MD Work Phone: Neurology Comment on above: Appointment (Time Ch kamilah: 05/15/2025) Start: 01-19-2025 ambulatory [facility] Facility:1 [phone] Start: 01-19-2025 End: 01-19-2025 Subsequent hospital visit by physician [facility] Work Phone: [facility] Comment on above: Solitary pulmonary n odule [R91.1] Start: 01-18-2025 End: 01-18-2025 Patient encounter procedure Kaykay Pena [place] -[facility] Work Phone: Start: 01-18-2025 End: 01-18-2025 ambulatory Marci Lopez Facility:[facility] Start: 12-22-2024 ambulatory Rosa Rodriguez [facility] ty:[facility] Start: 12-22-2024 End: 12-22-2024 Patient encounter procedure Marci Hunt John -[facility] Work Phone: Start: 12-22-2024 End: 12-22-2024 ambulatory Marci Lopez Facility:[facility] Start: 12-19-2024 End: 12-19-2024 Patient encounter procedure Dipti ROWLEY -[facility] Work Phone: Start: 12-19-2024 End: 12-19-2024 ambulatory Marci Baird John Facility:[facility] Start: 12-15-2024 End: 12-15-2024 Patient encounter procedure Rosa ROWLEY -Laboratory, Specimen Work Phone: Start: 12-15-2024 End: 12-15-2024 ambulatory Rosa Rodriguez Facility:[facility] Start: 12-13-2024 End: 12-13-2024 Subsequent hospital visit by physician Marci Lopez Work Phone: [facility] Pulm Function Test Comment on above: Other forms of dyspn ea Start: 12-13-2024 End: 12-13-2024 ambulatory MARCI JOHN [facility] Start: 12-12-2024 End: 12-12-2024 Patient encounter procedure Rosa ROWLEY -[facility] Work Phone: Start: 12-12-2024 End: 12-12-2024 ambulatory Marci Baird John Facility:[facility] Start: 11-28-2024 End: 11-28-[address] Adrienne Christine MD -[facility] Work Phone: Start: 11-28-2024 End: 11-28-2024 ambulatory Marci Lopez Facility:[facility] Start: 11-24-2024 End: 11-24-2024 Telephone encounter Marci Lopez Work Phone: [facility] Clinical Communication Comment on above: Other (Discuss Apppo intment) Start: 11-23-2024 End: 11-23-2024 Patient encounter procedure Rosa ROWLEY -[facility] Work Phone: Start: 11-23-2024 End: 11-23-2024 ambulatory Marci Lopez Facility:[facility] Start: 11-18-2024 End: 11-18-2024 Emergency department patient visit Dr. Jose Jaime DO -Emergency Department Work Phone: Start: 11-16-2024 End: 11-16-2024 Telephone encounter Marci Lopez Work Phone: [facility] Comment on above: Appointment Request Start: 11-14-2024 End: 11-14-2024 ambulatory Marci Lopez Facility:[facility] Start: 11-14-2024 Registered Recurring Marci Jiménez on DO -Physical Therapy Work Phone: Start: 11-13-2024 End: 11-14-2024 Telephone encounter Ghazala Gusman MD Work Phone: Rehab Medicine Comment on above: Requesting help with spasticity medication. Start: 11-10-2024 End: 11-10-2024 Subsequent hospital visit by physician Pina Isidro Work Phone: [facility] Comment on above: Dizziness and giddin ess Start: 11-10-2024 End: 11-10-2024 ambulatory PINA ISIDRO [facility] Start: 11-07-2024 End: 02-06-2025 Transcribe Orders Pina Isidro RN [facility] Central Sched uling Comment on above: Dizziness and giddin ess (Primary Dx) Start: 11-02-2024 End: 11-02-2024 Emergency department patient visit Marci Lopez Facility:[facility] Start: 10-30-2024 End: 10-30-2024 ambulatory Marci Lopez [facility] Start: 10-17-2024 End: 10-17-2024 ambulatory Marci Lopez [facility] Start: 10-13-2024 End: 01-12-2025 Transcribe Orders Marci Lopez Work Phone: [facility] Central Scheduling Comment on above: Other forms of dyspn ea (Primary Dx) Start: 10-06-2024 End: 10-06-2024 Telephone encounter Marci Lopez Work Phone: [facility] Comment on above: Other Start: 09-14-2024 End: 09-14-2024 [facility] Start: 09-09-2024 End: 09-09-2024 [facility] Start: 08-28-2024 ambulatory [facility] Start: 08-25-2024 ambulatory [facility] Start: 08-25-2024 End: 08-25-2024 ambulatory [facility] Start: 08-13-2024 End: 08-13-2024 Patient encounter procedure Roxanne Boo RT(R) Nuclear Medicine Start: 08-13-2024 End: 08-13-2024 ambulatory Roxanne Boo RT(R) Nuclear Medicine Comment on above: Radiology NM Start: 08-13-2024 End: 08-13-2024 Subsequent hospital visit by physician [facility] Work Phone: Nuclear Medicine Comment on above: 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] Start: 08-05-2024 End: 08-05-2024 ambulatory Dulce Maria Gibson RN [facility] Start: 08-05-2024 End: 08-05-2024 Patient encounter procedure Dulce Maria Gibson RN [facility] Start: 08-04-2024 End: 08-04-2024 ambulatory Anna Zarco RN [facility] Start: 08-04-2024 End: 08-04-2024 Patient encounter procedure Anna Zarco RN [facility] Start: 08-03-2024 End: 08-03-2024 ambulatory Marci Baird John [facility] Start: 08-01-2024 End: 08-01-2024 ambulatory Luigi Tinoco Facility[facility] Start: 07-25-2024 End: 07-25-2024 ambulatory Danish Tavarez [facility] Start: 07-21-2024 End: 07-21-2024 ambulatory Rosa Rodriguez [facility] Start: 07-21-2024 ambulatory MARTHA PILLAI Facility :[id number] Start: 07-21-2024 End: 07-21-2024 Subsequent hospital visit by physician [facility] Keith Work Phone: RADIO [facility] SC[facility] Comment on above: Solitary pulmonary n odule [R91.1] Start: 07-20-2024 End: 10-19-2024 Transcribe Orders Marci John Work Phone: [facility] Outaptient Lab Comment on above: Chronic kidney disea se, stage 3a (HCC) (Primary Dx) Start: 07-19-2024 End: 07-19-2024 ambulatory Adrienne Christine [facility] Start: 07-17-2024 End: 07-17-2024 ambulatory Luigi Tinoco Facility[place] Start: 07-11-2024 End: 07-11-2024 [facility] Start: 07-11-2024 End: 07-11-2024 Patient encounter procedure [facility] Start: 07-11-2024 End: 07-11-2024 Telephone encounter Marci John Work Phone: [employer] Clinical Communication Comment on above: Other (Needs call jaci lora from office) Start: 07-10-2024 End: 07-10-2024 ambulatory [facility] Start: 07-10-2024 End: 10-09-2024 Subsequent hospital visit by physician Marci Lopez Work Phone: [facility] Radiology Comment on above: Other constipation Other constipation ( Primary Dx) Start: 07-03-2024 End: 07-05-2024 ambulatory Anabell Simms Facility:[facility] Start: 06-28-2024 End: 06-28-2024 Telephone encounter Rick Rodas APRN - CAREER DEVELOPMENT SPECIALIST Work Phone: [facility] Clinical Communication Comment on above: Other ([employer] entation ) Start: 06-28-2024 End: 06-28-2024 Emergency department patient visit Marci Lopez Facility:[facility] Start: 05-23-2024 End: 05-23-2024 ambulatory Shan Lockett [facility] Start: 05-19-2024 End: 05-19-2024 ambulatory ADRIENNE BYERS DO Facility:[facility] Start: 05-19-2024 End: 05-19-[address] JAC CHRISTENSEN MD [facility] Start: 05-17-2024 End: 05-17-2024 ambulatory GHAZALA GUSMAN Facility:[facility] Start: 05-17-2024 End: 05-17-2024 Patient encounter procedure Ghazala Gusman MD Work Phone: Rehab Medicine Comment on above: History of stroke (P rimary Dx); Spasticity Start: 05-02-2024 ambulatory Adrienne Shadeton Facility: [facility] Start: 04-07-2024 End: 04-07-2024 Patient encounter procedure ADRIENNE SHADETON FOWLER [facility] Start: 04-07-2024 End: 04-07-2024 ambulatory ADRIENNE BYERS DO Facility:[facility] Start: 02-29-2024 End: 03-15-2024 Evaluation and management of inpatient Dr. Adrienne Byers Work Phone: [facility] Start: 02-29-2024 Non-patient / Non-visit Dr. Adrienne Byers Work Phone: [facility] Work Phone: Start: 02-28-2024 Non-patient / Non-visit Dr. Adrienne Byers Work Phone: [facility] Start: 02-28-2024 Non-patient / Non-visit Dr. Adrienne Byers Work Phone: [facility] Work Phone: Start: 02-27-2024 Non-patient / Non-visit Dr. Adrienne Byers Work Phone: [facility] Start: 02-27-2024 Non-patient / Non-visit Dr. Adrienne Byers Work Phone: [facility] Work Phone: Start: 02-26-2024 Non-patient / Non-visit Dr. Adrienne Byers Work Phone: [facility] Start: 02-26-2024 Non-patient / Non-visit Dr. Adrienne Byers Work Phone: [facility] Work Phone: Start: 02-25-2024 Non-patient / Non-visit Dr. Adrienne Byers Work Phone: [facility] Start: 02-25-2024 Non-patient / Non-visit Dr. Adrienne Byers Work Phone: [facility] Work Phone: Start: 02-24-2024 Non-patient / Non-visit Dr. Adrienne Byers Work Phone: [facility] Start: 02-24-2024 Non-patient / Non-visit Dr. Adrienne Byers Work Phone: [facility] Work Phone: Start: 02-23-2024 Non-patient / Non-visit Dr. Adrienne Byers Work Phone: [facility] Start: 02-23-2024 Non-patient / Non-visit Dr. Adrienne Byers Work Phone: [facility] Work Phone: Start: 02-22-2024 Non-patient / Non-visit Dr. Adrienne Byers Work Phone: [facility] Start: 02-22-2024 Non-patient / Non-visit Dr. Adrienne Byers Work Phone: [facility] Work Phone: Start: 02-22-2024 End: 02-22-2024 Non-patient / Non-visit Dr. Adrienne Byers Work Phone: [facility] Work Phone: Start: 02-21-2024 Non-patient / Non-visit Dr. Adrienne Byers Work Phone: [facility] Work Phone: Start: 02-21-2024 End: 02-29-2024 Evaluation and management of inpatient Dr[facility] Work Phone: Start: 02-19-2024 End: 02-19-2024 [facility] Start: 02-14-2024 End: 02-14-2024 ambulatory ADRIENNE BYERS DO Facility:[facility] Start: 12-27-2023 End: 12-27-2023 ambulatory ADRIENNE BYERS DO Facility:[facility] Start: 12-27-2023 End: 12-27-2023 Patient encounter procedure ADRIENNE BYERS DO [facility] Start: 12-08-2023 End: 12-08-2023 Emergency department patient visit Dr. Adrienne Byers [facility]: Start: 10-28-2023 End: 01-04-2024 ambulatory ADRIENNE HALKO DO Facility:[facility] Start: 10-25-2023 End: 10-25-2023 ambulatory ADRIENNE HALKO DO Facility:[facility] Start: 10-25-2023 End: 10-25-[address] JAC CHRISTENSEN MD [facility] Start: 10-22-2023 ambulatory Sherif Ramirez MD Work Phone: Neurological Restorationist Comment on above: Occupational Therapy Start: 10-20-2023 End: 10-20-2023 ambulatory Sherif Ramirez MD Work Phone: Neurological Restorationist Comment on above: Essential tremor (Pr imary Dx); Tremor of left hand Start: 10-20-2023 End: 10-20-2023 Telemedicine consultation with patient Sherif Ramirez MD Work Phone: [facility] Start: 10-12-2023 Non-patient / Non-visit Dr. Adrienne Byers Work Phone: [facility] Work Phone: Start: 10-11-2023 Non-patient / Non-visit Dr. Adrienne Byers Work Phone: [facility] Work Phone: Start: 10-10-2023 Non-patient / Non-visit Dr. Adrienne Byers Work Phone: [facility] Work Phone: Start: 10-09-2023 Non-patient / Non-visit Dr. Adrienne Byers Work Phone: [facility] Work Phone: Start: 10-08-2023 Non-patient / Non-visit Dr. Adrienne Byers Work Phone: [facility] Work Phone: Start: 10-07-2023 End: 10-12-2023 Evaluation and management of inpatient Dr. Adrienne Byers Work Phone: [facility] Work Phone: Start: 10-07-2023 End: 10-12-[address] Adrienne Byers Work Phone: [facility] Work Phone: Start: 10-07-2023 Non-patient / Non-visit Dr. Adrienne Byers Work Phone: [facility] Work Phone: Start: 10-01-2023 End: 10-07-2023 Evaluation and management of inpatient Dr. Adrienne Byers [facility] Start: 10-01-2023 Non-patient / Non-visit Dr. Adrienne Byers Work Phone: [facility] Work Phone: Start: 09-30-2023 Non-patient / Non-visit Dr. Adrienne Byers Work Phone: [facility] Work Phone: Start: 09-30-2023 End: 09-30-[address] Adrienne Byers Work Phone: [facility] Work Phone: Start: 09-29-2023 Non-patient / Non-visit Dr. Adrienne Byers Work Phone: [facility] Work Phone: Start: 09-29-2023 Non-patient / Non-visit Dr. Adrienne Byers Work Phone: [facility] Start: 09-29-2023 Non-patient / Non-visit Dr. 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] Start: 09-21-2023 End: 09-21-2023 Subsequent hospital visit by physician [facility] Start: 09-07-2023 End: 09-07-2023 ambulatory ADRIENNE GAXIOLA Facility:[facility] Start: 09-07-2023 End: 09-07-2023 Patient encounter procedure ADRIENNE BYERS DO [facility] Start: 08-27-2023 ambulatory ADRIENNE BYERS DO Facili ty:B Start: 08-26-2023 End: 08-26-2023 ambulatory ADRIENNE BYERS DO Facility:[facility] Start: 08-18-2023 End: 08-18-2023 ambulatory ADRIENNE BYERS DO Facility:[facility] Start: 08-18-2023 End: 08-18-2023 SAME DAY STAY JAXON KUHN MD [facility] Start: 08-16-2023 ambulatory ADRIENNE Salazari ty:B Start: 08-11-2023 End: 08-11-2023 ambulatory ADRIENNE BYERS DO Facility:[facility] Start: 08-11-2023 End: 08-11-2023 SAME DAY STAY JAXON KUHN MD [facility] Start: 08-07-2023 End: 08-07-2023 ambulatory ADRIENNE BYERS DO Facility:[facility] Start: 08-04-2023 End: 08-04-2023 Emergency department patient visit JAXON KUHN MD [facility] Start: 07-21-2023 Refill Sherif Ramirez MD Work Phone: Neurological Restorationist Comment on above: Refill Request Start: 07-13-2023 End: 07-13-2023 ambulatory ADRIENNE BYERS DO Facility:[facility] Start: 07-01-2023 End: 07-01-2023 Office outpatient visit 25 minutes Sherif Ramirez MD Work Phone: Neurological Restorationist Comment on above: 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); Parkinsonism, unspecified Parkinsonism type (HCC) Start: 06-23-2023 ambulatory ADRIENNE ZEESHAN Salazari ty:B Start: 06-09-2023 End: 06-09-[address] JAC CHRISTENSEN MD Facility:[facility] Start: 06-09-2023 End: 06-09-[address] JAC CHRISTENSEN MD [facility] Start: 05-17-2023 End: 05-17-2023 Patient encounter procedure ADRIENNE BYERS DO [facility] Start: 05-17-2023 Telephone encounter Ghazala davis MD Work Phone: Rehab Medicine Comment on above: Prior Authorization needed for medication Start: 05-14-2023 Telephone encounter Ghazala davis MD Work Phone: Rehab Medicine Comment on above: Insurance Authorizat ion (Baclofen) Start: 05-12-2023 Refill Ghazala Gusman MD Work Phone: Rehab Medicine Comment on above: Med Change Request Start: 05-12-2023 End: 05-12-2023 Patient encounter procedure Ghazala Gusman MD Work Phone: Rehab Medicine Comment on above: History of stroke (P rimary Dx); Spasticity; Spastic hemiparesis (HCC) Start: 12-10-2022 End: 12-10-[address] JAC CHRISTENSEN MD [facility] Start: 11-30-2022 End: 12-04-2022 Outreach Lab ADRIENNE BYERS DO [facility] Start: 11-27-2022 End: 11-27-2022 Patient encounter procedure ADRIENNE BYERS DO [facility] Start: 11-02-2022 End: 11-06-2022 Outreach Lab ADRIENNE BYERS DO [facility] Start: 10-12-2022 Telephone encounter Ghazala davis MD Work Phone: Rehab Medicine Comment on above: Medication question Start: 10-12-2022 End: 10-12-2022 ambulatory Sherif Ramirez MD Work Phone: Neurological Restorationist Comment on above: Tremor of left hand Start: 10-12-2022 End: 10-12-2022 Telemedicine consultation with patient Sherif Ramirez MD Work Phone: [facility] Start: 10-05-2022 End: 10-05-[address] LARY WHEAT DO [facility] Start: 09-09-2022 End: 09-09-[address] JAC CHRISTENSEN MD [facility] Start: 08-19-2022 End: 08-20-2022 Emergency department patient visit DR AKIN SALGUERO DO [facility] Start: 08-10-2022 End: 08-10-2022 ambulatory Sherif Ramirez MD Work Phone: Neurological Restorationist Comment on above: 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); Parkinson disease (HCC); Nocturnal muscle cramp Start: 08-10-2022 End: 08-10-2022 Telemedicine consultation with patient Sherif Ramirez MD Work Phone: [facility] Start: 07-20-2022 End: 07-20-[address] JAC CHRISTENSEN MD [facility] Start: 07-14-2022 End: 01-03-2023 Lab-Standing Order QIANA BAKER MD [facility] Start: 07-08-2022 End: 10-19-2022 Cardiac Rehab MITCHELL MARY MD [facility] Start: 07-01-2022 End: 07-01-[address] JAC CHRISTENSEN MD [facility] Start: 06-29-2022 ambulatory Sherif Ramirez MD Work Phone: Neurological Restorationist Comment on above: Parkinson Disease pr escription Start: 06-23-2022 End: 06-23-2022 Patient encounter procedure Sherif Ramirez MD Work Phone: Neurological Restorationist Comment on above: Parkinsonism, unspec ified Parkinsonism type (HCC) (Primary Dx); Tremor of left hand Start: 06-09-2022 End: 06-09-[address] JAC CHRISTENSEN MD [facility] Start: 06-04-2022 End: 06-04-2022 Patient encounter procedure Ghazala Gusman MD Work Phone: Spine Medicine Comment on above: Tremor of left hand (Primary Dx) Start: 06-01-2022 End: 06-01-[address] LARY WHEAT DO [facility] Start: 05-22-2022 End: 05-22-2022 Emergency department patient visit NOREEN HICKS MD [facility] Start: 05-01-2022 Refill Ghazala Gusman MD Work Phone: Rehab Medicine Comment on above: Refill Request Start: 05-01-2022 End: 05-01-[address] JAC CHRISTENSEN MD [facility] Start: 04-25-2022 End: 04-26-2022 Emergency department patient visit NATAN ARRIETA DO [facility] Start: 04-03-2022 End: 04-03-[address] JAC CHRISTENSEN MD [facility] Start: 04-02-2022 End: 04-02-[address] JAC CHRISTENSEN MD [facility] Start: 03-24-2022 End: 03-24-[address] JAC CHRISTENSEN MD [facility] Start: 03-20-2022 End: 03-20-[address] JAC CHRISTENSEN MD [facility] Start: 03-17-2022 End: 03-17-[address] JAC CHRISTENSEN MD [facility] Start: 03-06-2022 End: 03-06-[address] JAC CHRISTENSEN MD [facility] Start: 03-03-2022 End: 03-03-2022 Patient encounter procedure HARISH GIFFORD [employer] COACH-CAREER DEVELOPMENT SPECIALIST [facility] Start: 02-24-2022 End: 02-24-[address] JAC CHRISTENSEN MD [facility] Start: 02-05-2022 Telephone encounter Ghazala davis MD Work Phone: Spine Medicine Comment on above: Question (medication ) Start: 02-04-2022 End: 02-04-2022 Patient encounter procedure REI ALFONSO HEAD [employer] COACH-CAREER DEVELOPMENT SPECIALIST [facility] Start: 01-03-2022 End: 01-03-2022 Patient encounter procedure REI ALFONSO [employer] COACH-CAREER DEVELOPMENT SPECIALIST [facility] Start: 12-29-2021 End: 12-29-[address] BHASKAR LEE MD [facility] Start: 12-24-2021 End: 12-25-2021 Evaluation and management of inpatient MITCHELL MARY MD [facility] Start: 12-23-2021 End: 12-24-2021 Emergency department patient visit CATHY MARQUEZ DO [facility] Start: 11-22-2021 End: 12-05-2021 Evaluation and management of inpatient CHRISTINA MARCIAL MD [facility] Start: 11-21-2021 End: 11-22-2021 Emergency department patient visit JAXON KUHN MD [facility] Start: 11-06-2021 End: 11-06-[address] LARY WHEAT DO [facility] Start: 10-08-2021 End: 10-08-[address] LARY WHEAT DO [facility] Start: 09-26-2021 End: 09-26-[address] LARY WHEAT DO [facility] Procedures Date Procedure Procedure Detail Performing Clinician Start: 04-20-[address] Saranya Lopez DO Work Phone: Start: 04-19-2025 Urnls dip stick/tablet reagent auto microscopy Dr. Marci Lopez DO Work Phone: Start: 04-19-[address] Saranya Lopez DO Work Phone: Start: 04-04-2025 Mri brain brain stem w/o contrast material Leyla Murphy MD Work Phone: Start: 03-10-2025 Urnls dip stick/tablet reagent auto microscopy Dr. Marci Lopez DO Work Phone: Start: 03-10-2025 Plain x-ray of pelvis and lower extremity Dr. Marci Lopez DO Work Phone: Start: 03-10-[address] Saranya Lopez DO Work Phone: Start: 01-22-[address] Saranya Lopez DO Work Phone: Start: 01-22-[address] Saranya Lopez DO Work Phone: Start: 01-22-2025 Total iron binding capacity measurement Dr. Marci Lopez DO Work Phone: Start: 12-22-[address] Marci Lopez DO Work Phone: Start: 12-22-2024 MRI of neck vessels with contrast Dr. Pacheco Lopez DO Work Phone: Start: 12-13-2024 Brncdilat rspse spmtry pre&post-brncdilat admlashell Lopez Work Phone: Start: 11-18-2024 Computed tomography of abdomen and pelvis with intravenous contrast Dr. Marci Lopez DO Work Phone: Start: 08-13-[address] attenuation skull base mid-thigh [facility] Provider Start: 08-13-2024 Gluc bld gluc mntr dev cleared fda spec home use [facility] Provider Start: 07-21-2024 Ct thorax w/o contrast material Martha cotton MD Work Phone: Start: 02-26-[address] Adrienne Byers Work Phone: Start: 02-26-2024 CT of chest and abdomen Dr. Adrienne liu Work Phone: Start: 02-25-2024 Bacteria identified in Blood by Culture Dr. Adrienne Byers Work Phone: Start: 02-25-2024 Plain chest X-ray Dr. Adrienne Byers Work Phone: Start: 02-22-[address] Adrienne Byers Work Phone: Start: 02-21-2024 CT of abdomen and pelvis with oral contrast Dr. Adrienne Byers Work Phone: Start: 02-21-2024 Measurement of occult blood in stool specimen using immunoassay Dr. Adrienne Byers Work Phone: Start: 02-21-[address] Adrienne Byers Work Phone: Start: 02-19-2024 Computed tomography of abdomen and pelvis with intravenous contrast Start: 02-19-2024 Plain chest X-ray Start: 12-08-2023 Plain x-ray of pelvis and lower extremity Dr. Adrienne Byers Work Phone: Start: 10-28-2023 End: 01-04-2024 Occupational therapy SHERIF RAMIREZ MD Start: 10-08-2023 MRI of brain with contrast Dr. Adrienne alaniz Work Phone: Start: 10-07-2023 CT angiography of head and neck Dr. Luis Byers Work Phone: Start: 10-07-2023 CT of head without contrast Dr. Adrienne Byers Work Phone: Start: 10-07-2023 Plain chest X-ray Dr. Adrienne Byers Work Phone: Start: 09-30-2023 MRI of brain without contrast Dr. Kevin Byers Work Phone: Start: 09-28-2023 Plain chest X-ray Start: 09-28-2023 CT angiography of head and neck Start: 09-28-2023 CT of head without contrast Start: 06-09-2023 Echocardiography ADRIENNE BYERS DO Comment on above: 1. Left ventricle: The cavity size is no rmal. Wall thickness is mildly increased. Concentric Left Ventricular Hypertrophy Systolic function is moderately reduced. The estimated ejection fraction is 35-40%. There is moderate diffuse hypokinesis. Diastolic dysfunction present but unable to assess severity. 2. Ventricular septum: Thickness is mildly increased. 3. Right ventricle: The RV systolic pressure by Doppler is 19 mm Hg. 4. Right atrium: The estimated right atrial pressure is 3 mm Hg Start: 08-07-2022 Adult depression screening assessment Sherif Ramirez MD Work Phone: Start: 05-12-2022 Insertion of cardiac biventricular implantable cardioverter defibrillator (ICD) using fluoroscopic guidance DR LARY WHEAT DO Comment on above: Implantation Biventricular ICD HEAD BELLHOP CAPTAIN-D 04/23 Dr Ashley Evans Generator [employer] [id number] VIGILANT X4 HEAD BELLHOP CAPTAIN-D Serial [id number] RA Lead [employer] 7840 Ingevity + MRI Serial [id number] 05/12/2022 RV Lead [employer] 0675 [place] 4 Front Serial [id number] 05/12/2022 LV Lead [employer] 4674 Acuity X4 Spiral Short Serial [id number] 05/12/2022 Start: 04-21-2022 Cardiac MRI NATAN ARRIETA DO Comment on above: Dilated left ventricle with global hypok inesia, relative septal wall hypokinesia/akinesia, and mild lateral free wall dyskinesia associated with curvilinear mesocardial LGE of the inferoseptal wall, suggesting nonischemic dilated cardiomyopathy. diminished LVEF 31.2% Start: 03-30-2022 Echocardiography NATAN ARRIETA DO Comment on above: EF 35-40%. Start: 12-03-[address] MARY LEE MD Comment on above: SUMMARY: 1. 1st lesion: Stent placement was performed. A 2.5 x 20mm Synergy XD stent was used. The stent was advanced across the lesion and deployed with a single inflation and a maximum pressure of 12 britney. 2. Left circumflex: Mid-vessel lesion: There is a 95% stenosis. 3. 2nd obtuse marginal: Ostial lesion: The diagnostic study demonstrated a 95% stenosis, at the bifurcation, also involving the mid vessel. The distal vessel supplies a moderate-sized vascular territory. The lesion is a likely culprit for the patient's clinical presentation. The lesion presents an ACC/AHA type C high risk lesion for intervention. Stent placement was performed, with balloon angioplasty, resulting in an improved angiographic appearance (see 1st lesion). Following intervention, there is a residual 0% stenosis with ELLIE grade 3 flow (brisk flow). 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 RECOMMENDATIONS: DAPT with asa and plavix for at least 6 months. Aggressive risk factor modification, cardiac rehab. Optimize GDMT for CAD and HFrEF. Start: 11-26-2021 Cardiac catheter (physical object) DR MARY LEE MD Comment on above: SUMMARY: 1. Mitral valve: There is moderate regurgitation. 2. Left ventricle: Systolic function is markedly reduced. The estimated ejection fraction is 15-20%. Dilated LV. 3. LAD: Mid-vessel lesion: There is an 80% stenosis. Tubular. Tapers down after stenosis. 4. 1st diagonal: The vessel is large. Runs almost to apex Proximal vessel lesion: There is a 70% stenosis. 5. Ramus intermedius: The vessel is medium-sized. Ostial lesion: There is a 95% stenosis. 6. Left circumflex: The vessel is large. Proximal vessel lesion: There is a 99% stenosis. 7. 1st obtuse marginal: Ostial lesion: There is a 99% stenosis. 8. Right coronary: Distal vessel lesion: There is a 99% stenosis. 9. LVEF function diffusely reduced and is out of proportion of CAD findings. IMPRESSIONS: Heart team discussion Start: 10-23-2021 Adult depression screening assessment Ghazala Gusman MD Work Phone: Start: 10-22-[address] LARY POWELL DO Comment on above: Negative for gross ischemia or infarct, EF 58% Start: 10-22-[address] LARY WHEAT DO Comment on above: EF 50 + or - 5% Start: 09-09-[address] LARY WHEAT DO Start: 04-29-[address] LARY RODRIGUEZ DO Start: 09-03-[address] LARY WHEAT DO Comment on above: EF 60-65% Start: 02-21-2015 Colonoscopy Ghazala Gusman MD Work Phone: Start: 06-18-2010 Lipid 1996 panel - Serum or Plasma Dougl as Brown DO Work Phone: Cholecystectomy DR LARY BROWN DO Colonoscopy DR LARY Knight DO Insertion of cardiac biventricular implantable cardioverter defibrillator (ICD) using fluoroscopic guidance NOREEN HICKS MD Comment on above: Implantation Biventricular ICD HEAD BELLHOP CAPTAIN-D 04/23 Dr Ashley Evans Generator [employer] [id number] VIGILANT X4 HEAD BELLHOP CAPTAIN-D Serial [id number] RA Lead [employer] 7840 Ingevity + MRI Serial [id number] 05/12/2022 RV Lead [employer] 0675 [place] 4 Front Serial [id number] 05/12/2022 LV Lead [employer] 4674 Acuity X4 Spiral Short Serial [id number] 05/12/2022 Ophthalmic surgery ( qualifier value) DR LARY WHEAT DO Comment on above: CORRECTED CROSS EYES A CHILD Tonsillectomy DR LARY RUIZ DO Comment on above: A CHILD Plan of Treatment Date Care Activity Detail Author Start: 2028 RSV Vaccine (1 - 1-d ose 75+ series) RSV Vaccine (1 - 1-dose 75+ series) [facility] Start: 07-20-2027 Diabetes Screening Diabetes Screenin g [facility] Start: 07-23-2025 Influenza vaccination Influenz a Vaccine (Season Ended) [facility] Start: 07-20-2025 Creatinine measurement Creatinine Le jana [facility] Start: 07-20-2025 Diabetes: Estimated Glomerular Filtration Rate for Kidney Health Diabetes: Estimated Glomerular Filtration Rate for Kidney Health [facility] Start: 07-20-2025 Potassium measurement Potassium Levemmett l [facility] Start: 06-07-2025 End: 06-07-2025 Patient encounter procedure 06/07/2025 10:00 AM EDT Office Visit Neurology [address] [phone] Leyla Murphy MD [address] [id number] 3 month follow up - 60 minutes per K[facility] Neurology Comment on above: 3 month follow up - 60 minutes per KA Start: 05-21-2025 End: 05-21-2025 Specialty Pharmacy 05/21/2025 8:00 AM EDT Specialty Pharmacy [facility] [address] [place] [address] [id number] [place] [address] Pharmacist, [email or web address] [address] [place] [address] [place] [address] Refill - [facility] - [facility] Comment on above: Refill - [facility] - Start: 05-15-2025 End: 05-15-2025 Patient encounter procedure 05/15/2025 4:00 PM EDT Office Visit Neurology [address] [phone] Leyla Murphy MD [address] [facility] [address] [place] [address] NEW PATIENT (previous patient of Dr. Ramirez) - Essential tremors Neurology Comment on above: NEW PATIENT (previou s patient of Dr. Ramirez) - Essential tremors Start: 04-23-2025 End: 04-23-2025 Specialty Pharmacy 04/23/2025 7:00 AM EDT Specialty Pharmacy [facility] [address] [place] [address] Drive [id number] [place] [address] Pharmacist, [email or web address] [address] [place] [address] [place] [address] Refill [facility] Comment on above: Refill [facility] Start: 04-20-2025 Patient discharge [facility] Start: 04-20-2025 [facility] Start: 04-19-2025 Following clinical p athway protocol [facility] Start: 04-19-2025 Ambulation without limitation [facility] Start: 04-19-2025 Assessment of risk o f venous thromboembolism [facility] Start: 04-19-2025 Care regimes management [facility] Start: 04-19-2025 Incentive spirometry [facility] Start: 04-19-2025 Insertion of cathete r into peripheral vein [facility] Start: 04-19-2025 Notification of physician [facility] Start: 04-19-2025 Oxygen therapy [facility] Start: 04-19-2025 Providing care accor ding to standard [facility] Start: 04-19-2025 Referral to occupati onal therapist [facility] Start: 04-19-2025 Referral to service [facility] Start: 04-19-2025 End: 04-19-2025 [facility] Start: 04-19-2025 Hospital admission, emergency, from emergency room, medical nature [facility] Start: 04-19-2025 Admission procedure [facility] Start: 04-19-2025 Consultation [facility] Start: 04-19-2025 Referral to service [facility] Start: 04-19-2025 Inhalation therapy procedure [facility] Start: 04-04-2025 End: 04-04-2025 Patient encounter procedure 04/04/2025 12:00 PM EDT Appointment Radiology [address] [place] [address] DUE TO PT IMPLANT- IF APPT NEEDS TO BE RESCHEDULED IT MUST BE SENT TO THE FOLLOWING STAFF MESSAGE ADDRESS: IMAGING IMPLANTS [[id number]]PACEMAKER approved to schedule by Radiology Comment on above: DUE TO PT IMPLANT- I F APPT NEEDS TO BE RESCHEDULED IT MUST BE SENT TO THE FOLLOWING STAFF MESSAGE ADDRESS: IMAGING IMPLANTS [[id number]]PACEMAKER approved to schedule by Start: 04-02-2025 End: 04-02-2025 Patient encounter procedure Cardiology Comment on above: DEVICE CHECK FOR MRI CLEARANCE CHEST XRAY FOR MRI C LEARANCE Start: 03-11-2025 DTaP/Tdap/Td Vaccine s (2 - Td or Tdap) DTaP/Tdap/Td Vaccines (2 - Td or Tdap) [facility] Start: 03-11-2025 Urine microalbumin profile DTa P,Tdap,Td Vaccine (2 - Td or Tdap) [facility] Start: 03-10-2025 [facility] Start: 02-13-2025 Patient referral [facility] Work Phone: Start: 12-13-2024 End: 12-13-2024 Patient encounter procedure 12/13/2024 8:30 AM EST Appointment [facility] [address] [place] [address] Marci Lopez [address] [place] [phone] [facility] Start: 12-12-2024 Patient referral [facility] Work Phone: Start: 11-22-2024 Advance Directive Discussion Advance Directive Discussion [facility] Start: 11-22-2024 Medicare Advantage A nnual Wellness Visit Medicare [facility] Annual Wellness Visit [facility] Start: 11-18-2024 [facility] Start: 07-23-2024 Covid-19 Vaccine ( season) Covid-19 Vaccine () [facility] Start: 07-23-2024 Covid-19 Vaccine ( season) Covid-19 Vaccine () [facility] Start: 07-23-2024 Influenza vaccination [facility] Start: 03-29-2024 Blood chemistry [facility] Start: 03-22-2024 Blood chemistry [facility] Start: 03-15-2024 Patient discharge [facility] Start: 03-14-2024 Referral to service [facility] Start: 03-14-2024 Development of care plan [facility] Start: 03-07-2024 Speech therapy management [facility] Start: 03-07-2024 Speech therapy assessment [facility] Start: 03-06-2024 [facility] Start: 03-02-2024 Fluid intake encouragement [facility] Start: 03-01-2024 Development of care plan [facility] Start: 03-01-2024 Developing a treatme nt plan [facility] Start: 02-29-2024 Verification routine [facility] Start: 02-29-2024 Admission procedure [facility] Start: 02-29-2024 Measuring intake and output [facility] Start: 02-29-2024 Patient referral to dietitian [facility] Start: 02-29-2024 Referral to occupati onal therapist [facility] Start: 02-29-2024 Referral to service [facility] Start: 02-29-2024 Vital signs measurements [facility] Start: 02-29-2024 [facility] Start: 02-29-2024 Patient discharge [facility] Start: 02-29-2024 Patient referral to dietitian [facility] Start: 02-26-2024 Consultation [facility] Start: 02-25-2024 End: 02-25-2024 Blood culture [facility] Start: 02-25-2024 [facility] Start: 02-25-2024 Bacteria identified in Blood by Culture Blood Culture [facility] Start: 02-22-2024 [facility] Start: 02-22-2024 Referral to occupati onal therapist [facility] Start: 02-22-2024 Referral to service [facility] Start: 02-21-2024 Application of intermittent pneumatic compression device [facility] Start: 02-21-2024 Ambulation without limitation [facility] Start: 02-21-2024 Assessment of risk o f venous thromboembolism [facility] Start: 02-21-2024 Insertion of cathete r into peripheral vein [facility] Start: 02-21-2024 Providing care accor ding to standard [facility] Start: 02-21-2024 Referral to gastroenterology service [facility] Start: 02-21-2024 [facility] Start: 02-21-2024 Following clinical p athway protocol [facility] Start: 02-21-2024 Verification routine [facility] Start: 02-21-2024 Admission procedure [facility] Start: 02-21-2024 Hospital admission, emergency, from emergency room, medical nature [facility] Start: 02-21-2024 [facility] Start: 02-21-2024 Patient referral to dietitian [facility] Start: 02-19-2024 [facility] Start: 02-19-2024 Emergency department visit moderate severity EMERGENCY DEPT VISIT LOW MDM [facility] Start: 02-19-2024 Iv infusion hydratio n each additional hour HYDRATE IV INFUSION ADD-ON [facility] Start: 02-19-2024 Iv infusion hydratio n initial 31 min-1 hour HYDRATION IV INFUSION INIT [facility] Start: 12-10-2023 [facility] Start: 12-08-2023 [facility] Start: 11-22-2023 Advance Directive Discussion Advance Directive Discussion [facility] Start: 11-22-2023 Behavioral Health Screening Behavioral Health Screening [facility] Start: 11-22-2023 Medicare Advantage A nnual Wellness Visit Medicare Advantage Annual Wellness Visit [facility] Start: 10-12-2023 Patient discharge [facility] Start: 10-08-2023 Development of care plan [facility] Start: 10-08-2023 [facility] Start: 10-07-2023 Following clinical p athway protocol [facility] Start: 10-07-2023 Aspiration precautions [facility] Start: 10-07-2023 Assessment of risk o f venous thromboembolism [facility] Start: 10-07-2023 Cardiac monitoring [facility] Start: 10-07-2023 Care regimes management [facility] Start: 10-07-2023 Catheterization of vein [facility] Start: 10-07-2023 Elevation of head of bed [facility] Start: 10-07-2023 Exercises [facility] Start: 10-07-2023 Fall prevention [facility] Start: 10-07-[address] anned interventions [facility] Start: 10-07-2023 Inhalation therapy procedure [facility] Start: 10-07-2023 Insertion of cathete r into peripheral vein [facility] Start: 10-07-2023 Introduction of urin dl catheter [facility] Start: 10-07-2023 Measuring intake and output [facility] Start: 10-07-2023 Notification of physician [facility] Start: 10-07-2023 Providing care accor ding to standard [facility] Start: 10-07-2023 Provision of activit y privileges [facility] Start: 10-07-2023 Referral to occupati onal therapist [facility] Start: 10-07-2023 Referral to service [facility] Start: 10-07-2023 Speech therapy assessment [facility] Start: 10-07-2023 Tobacco use cessatio n education [facility] Start: 10-07-2023 [facility] Start: 10-07-2023 Vital signs measurements [facility] Start: 10-07-2023 Verification routine [facility] Start: 10-07-2023 Hospital admission, emergency, from emergency room, medical nature [facility] Start: 10-07-2023 Admission procedure [facility] Start: 10-07-2023 Oxygen therapy [facility] Start: 10-07-2023 [facility] Start: 10-07-2023 Patient discharge [facility] Start: 10-02-2023 Speech therapy management [facility] Start: 10-02-2023 Developing a treatme nt plan [facility] Start: 10-02-2023 Development of care plan [facility] Start: 10-01-2023 Admission procedure [facility] Start: 10-01-2023 Measuring intake and output [facility] Start: 10-01-2023 Patient referral to dietitian [facility] Start: 10-01-2023 Referral to occupati onal therapist [facility] Start: 10-01-2023 Referral to service [facility] Start: 10-01-2023 Vital signs measurements [facility] Start: 10-01-2023 End: 10-01-2023 [facility] Start: 10-01-2023 Speech therapy assessment [facility] Start: 10-01-2023 Patient discharge [facility] Start: 09-29-2023 [facility] Start: 09-28-2023 Following clinical p athway protocol [facility] Start: 09-28-2023 Cardiac monitoring [facility] Start: 09-28-2023 Catheterization of vein [facility] Start: 09-28-2023 Elevation of head of bed [facility] Start: 09-28-2023 Exercises [facility] Start: 09-28-[address] anned interventions [facility] Start: 09-28-2023 Notification of physician [facility] Start: 09-28-2023 Oxygen therapy [facility] Start: 09-28-2023 Patient referral to dietitian [facility] Start: 09-28-2023 Referral to occupati onal therapist [facility] Start: 09-28-2023 Referral to service [facility] Start: 09-28-2023 Speech therapy assessment [facility] Start: 09-28-2023 Tobacco use cessatio n education [facility] Start: 09-28-2023 [facility] Start: 09-28-2023 Vital signs measurements [facility] Start: 09-28-2023 Admission procedure [facility] Start: 09-28-2023 Hospital admission, emergency, from emergency room, medical nature [facility] Start: 09-28-2023 Oxygen therapy [facility] Start: 09-28-2023 [facility] Start: 08-07-2023 Adult depression scr eening assessment DEPRESSION SCREENING [facility] Start: 07-23-2023 COVID-19 Vaccine ( season) COVID-19 Vaccine ( season) [facility] Start: 07-23-2023 Covid-19 Vaccine ( season) Covid-19 Vaccine () [facility] Start: 07-23-2023 Influenza vaccination [facility] Start: 11-22-2022 ADVANCE DIRECTIVE DISCUSSION ADVANCE DIRECTIVE DISCUSSION [facility] Start: 11-22-2022 DEPRESSION ASSESSMENT DEPRESSION ASS ESSMENT [facility] Start: 10-23-2022 Adult depression scr eening assessment DEPRESSION SCREENING [facility] Start: 07-23-2022 Influenza vaccination INFLUENZA (#1) [facility] Start: 02-25-2022 COVID-19 VACCINE (4 - Booster for Moderna series) COVID-19 VACCINE (4 - Booster for Moderna series) [facility] Start: 12-22-2021 COVID-19 VACCINE (4 - Booster for Moderna series) COVID-19 VACCINE (4 - Booster for Moderna series) [facility] Start: 12-22-2021 COVID-19 VACCINE (5 - Booster for Moderna series) COVID-19 VACCINE (5 - Booster for Moderna series) [facility] Start: 12-22-2021 COVID-19 VACCINE (5 - Moderna series) COVID-19 VACCINE (5 - Moderna series) [facility] Start: 11-22-2021 ADVANCE DIRECTIVE DISCUSSION ADVANCE DIRECTIVE DISCUSSION [facility] Start: 11-22-2021 DEPRESSION ASSESSMENT DEPRESSION ASS ESSMENT [facility] Start: 02-22-2020 Colonoscopy COLONOSCOPY [facility] Start: 02-22-2020 COLORECTAL CANCER SCREENING COLORECTAL CANCER SCREENING [facility] Start: 02-22-2020 Screening for malign ant neoplasm of colon [facility] Start: 2018 BONE DENSITY BONE DENSITY [facility] Start: 2018 Bone Density Screening Bone Density Screening [facility] Start: 2018 Pneumococcal Vaccine : 65+ (1 - PCV) Pneumococcal Vaccine: 65+ (1 - PCV) [facility] Start: 2018 Pneumococcal Vaccine : 65+ (1 of 1 - PCV) Pneumococcal Vaccine: 65+ (1 of 1 - PCV) [facility] Start: 2018 Pneumococcal Vaccine : 65+ Years (1 of 1 - PCV) Pneumococcal Vaccine: 65+ Years (1 of 1 - PCV) [facility] Start: 2018 PNEUMOCOCCAL: 65+ (1 - PCV) PNEUMOCOCCAL: 65+ (1 - PCV) [facility] Start: 2018 PNEUMOVAX AGE 65 AND OVER WITH 5YR LOOKBACK (#1) PNEUMOVAX AGE 65 AND OVER WITH 5YR LOOKBACK (#1) [facility] Start: 2018 Screening for osteoporosis Bone Dens ity Screening [facility] Start: 06-18-2015 Lipid 1996 panel - S george or Plasma Lipid Screening [facility] Start: 06-18-2015 Lipid panel Lipid Screening [facility] Start: 06-18-2015 LIPID SCREEN LIPID SCREEN [facility] Start: 05-06-2015 Shingrix Vaccine (2 of 3) Moran grix Vaccine (2 of 3) [facility] Start: 2013 RSV Immunization age d 60 or older (1 - 1-dose 60+ series) RSV Immunization aged 60 or older (1 - 1-dose 60+ series) [facility] Start: 2013 RSV Immunization for Adults (1 - Risk 60-74 years 1-dose series) RSV Immunization for Adults (1 - Risk 60-74 years 1-dose series) [facility] Start: 2013 RSV Vaccine (1 - 1-d ose 60+ series) RSV Vaccine (1 - 1-dose 60+ series) [facility] Start: 2013 RSV Vaccine (1 - Ris k 60-74 years 1-dose series) RSV Vaccine (1 - Risk 60-74 years 1-dose series) [facility] Start: 2012 DIABETES SCREEN [facility] Start: 2012 Diabetes Screening Diabetes Screenin g [facility] Start: 2008 Influenza vaccination LUNG CANCER [facility] Start: 2003 Influenza vaccination LUNG CANCER [facility] Start: 2003 Pneumococcal Vaccine : 50+ (1 of 1 - PCV) Pneumococcal Vaccine: 50+ (1 of 1 - PCV) [facility] Start: 2003 SHINGRIX VACCINE (1 of 2) MORAN GRIX VACCINE (1 of 2) [facility] Start: 2003 Zoster Vaccines (1 of 2) Zoste r Vaccines (1 of 2) [facility] Start: 1998 COLOGUARD (FIT-DNA) COLOGUARD (FIT-D NA) [facility] Start: [address] COLONOGRAPHY [facility] Start: 1998 FECAL OCCULT BLOOD FECAL OCCULT BLOO D [facility] Start: 1998 Screening for malign ant neoplasm of colon [facility] Start: 1998 SIGMOIDOSCOPY SIGMOIDOSCOPY [facility] Start: 1993 Mammography [facility] Start: 1993 Screening for malign ant neoplasm of breast [facility] Start: 1972 DTaP/Tdap/Td Vaccine s (1 - Tdap) DTaP/Tdap/Td Vaccines (1 - Tdap) [facility] Start: 1972 Pneumococcal Vaccine : 50+ Years (1 of 2 - PCV) Pneumococcal Vaccine: 50+ Years (1 of 2 - PCV) [facility] Start: 1972 Urine microalbumin profile DTAP,TDAP ,TD (1 - Tdap) [facility] Start: 1971 Anxiety Screening Anxiety Screening [facility] Start: 1971 Depression Screening Depression Scre ing [facility] Start: 1971 Diabetes: Estimated Glomerular Filtration Rate for Kidney [facility] Diabetes: Estimated Glomerular Filtration Rate for Kidney Health [facility] Start: 1971 Diabetes: Urine Albumin-Creatinine Ratio for Kidney [facility] Diabetes: Urine Albumin-Creatinine Ratio for Kidney Health [facility] Start: 1971 HEPATITIS C SCREENING HEPATITIS C [facility] Start: 1971 Hepatitis C screening Hepatitis C [facility] Start: 1965 Depression Monitoring Depression Mon itoring [facility] Start: 1965 Depression Screening Depression Scre ing [facility] Start: 1963 Diabetic foot examination Diabetes: Foot Exam [facility] Start: 1963 Glaucoma screening Diabetes: R etinopathy Screening [facility] Start: 1963 Preventive dental service Diabetes: Dental Exam [facility] Start: 1959 Pneumococcal Vaccine : 65+ Years (1 of 2 - PCV) Pneumococcal Vaccine: 65+ Years (1 of 2 - PCV) [facility] Start: 1953 Creatinine measurement Creatinine Le jana [facility] Start: 1953 Echocardiography Echocardiogram [facility] Start: 1953 Hemoglobin A1c measurement Rylie betes: Hemoglobin A1C [facility] Start: 1953 Lipid panel Lipid Panel [facility] [facility] Start: 1955 Potassium measurement Potassium Leve l [facility] Start: 1955 Screening for malign ant neoplasm of colon [facility] Start: 1955 Screening for osteoporosis Bone Dens ity Scan [facility] End: 03-29-2026 MR Brain WO contrast MRI BRAIN WO IVCON Radiology Routine Essential tremor Dyskinesia, tardive 1 Occurrences starting 02/27/2025 until 03/29/2026 [facility] Work Phone: Comment on above: 1 Occurrences starti ng 02/27/2025 until 03/29/2026 End: 07-30-2024 NM BRAIN TREMOR SPECT/CT NM BRAIN TREMOR SPECT/CT Radiology Routine 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) Parkinsonism, unspecified Parkinsonism type (HCC) 1 Occurrences starting 07/01/2023 until 07/30/2024 [facility] Work Phone: Comment on above: 1 Occurrences starti ng 07/01/2023 until 07/30/2024 NM BRAIN TREMOR SPECT/CT NM BRAI N TREMOR SPECT/CT Radiology Routine 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) Parkinsonism, unspecified Parkinsonism type 09/21/2023 2:02 PM EDT [facility] Work Phone: OUTSIDE PROCEDURE SCAN OUTSIDE P ROCEDURE SCAN Procedures Ordered: 07/20/2024 [facility] Comment on above: Ordered: 07/20/2024 Patient Education [facility] Work Phone: Patient referral [facility] Work Phone: Vascular US carotid artery duplex bilateral Vascular US carotid artery duplex bilateral CV Vascular Ultrasound Routine Dizziness and giddiness 11/10/2024 3:39 PM EST [facility] [employer] Work Phone: End: 07-10-2024 XR Abdomen Single view [facility] [employer] Work Phone: Comment on above: Once for 1 Occurrenc es starting 07/10/2024 until 07/10/2024 XR Chest PA and Lateral XR CHEST 2V FRONTAL/LAT Radiology Routine Presence of cardiac pacemaker 04/02/2025 9:35 AM EDT [facility] Work Phone: [facility] Immunizations Immunization Date Immunization Notes Care Provider Fa cili 01-19-[address] Adrienne Byers Work Phone: [facility] 10-25-[address] Adrienne Byers Work Phone: [facility] 08-18-2023 Human rabies vaccine from Chicken fibroblast culture JAXON KUHN MD [facility] 08-11-2023 Human rabies vaccine from Chicken fibroblast culture JAXON KUHN MD [facility] 08-07-2023 Human rabies vaccine from Chicken fibroblast culture JAXON KUHN MD [facility] 08-07-2023 rabies vaccine, unspecified formulation JAXON KUHN MD [facility] 08-04-2023 Human rabies vaccine from Chicken fibroblast culture JAXON KUHN MD [facility] 10-27-2021 influenza virus vaccine, unspecified formulation DR LARY WHEAT DO [facility] 10-27-2021 influenza, injectabl e, quadrivalent, preservative free Dr. Adrienne Byers Work Phone: [facility] 10-27-2021 SARS-CoV-2 (COVID-19 ) [id number] LARY WHEAT DO [facility] 02-27-2021 SARS-CoV-2 (COVID-19 ) mRNA-[address] LARY WHEAT DO [facility] 01-30-2021 SARS-CoV-2 (COVID-19 ) mRNA-[address] LARY WHEAT DO [facility] Comment on above: Result Comment: 2020: [id number] 11-22-2020 influenza, injectabl e, quadrivalent, preservative free Dr. Adrienne Byers Work Phone: [facility] 11-22-2020 SARS-CoV-2 (COVID-19 ) mRNA-1273 vaccine ADRIENNE BYERS DO [facility] 08-30-2020 influenza, injectabl e, quadrivalent, preservative free; Translations: [Fluarix PF Quadrivalent ] DR LARY WHEAT DO [facility] 08-03-2019 influenza virus vaccine, unspecified formulation DR LARY WHEAT DO [facility] Comment on above: Result [facility] Influenza, high dose seasonal Dr. Marci Lopez DO Work Phone: [facility] 08-03-2019 influenza, high dose seasonal, preservative-free Dr. Adrienne Byers Work Phone: [facility] 09-09-2018 influenza virus vaccine, unspecified formulation NOREEN HICKS MD [facility] 09-09-2018 influenza, injectabl e, quadrivalent, preservative free Dr. Adrienne Byers Work Phone: [facility] 09-03-2017 influenza virus vaccine, unspecified formulation NOREEN HICKS MD [facility] 09-03-2017 influenza, injectabl e, quadrivalent, preservative free Dr. Adrienne Byers Work Phone: [facility] 09-18-2016 influenza virus vaccine, unspecified formulation NOREEN HICKS MD [facility] 09-18-2016 influenza, injectabl e, quadrivalent, preservative free Dr. Adrienne Byers Work Phone: [facility] 03-11-2015 tetanus toxoid, redu son diphtheria toxoid, and acellular pertussis vaccine, adsorbed DR LARY WHEAT DO [facility] 03-11-2015 zoster vaccine, live DR ÁLVARO HWEAT DO [facility] 09-22-2014 Influenza virus vaccine [facility] Payers Date Payer Category Payer Self-pay [id number] 2022 Medicare (Managed Care) [employer] G [employer] PLUS [id number] 2022 Medicare HMO [id number] 2021 Unknown [employer] BLUE CARD PPO OOS [id number] 2021-Present [phone] [address] [place] [address] PPO [id number] 2019 Medicare HUMANA MEDICARE HU[employer]NA MEDICARE PPO [id number] 2019-Present [phone] [address] [address] [place] [address] PPO [id number] [id number] 2019 Medicare [id number] 1.13.159. [id number] 2017 Unknown [id number] 1.2.840.331157.1.13.159. 2.7.3.670572.315 2015 Unknown [id number] 2013 Medicare [id number] 1953 Unknown [id number] 2.840.1.431580.3.579. 2. 1953 Unknown [id number] .840.1.017828.3.579. 2 1953 Unknown [id number] .840.1.565248.3.579. 2 1953 Unknown [id number] 2.16840.1.823141.3.579. 2. 1953 Unknown [id number] 2.16840.1.185293.3.579. 2 1953 Unknown [id number] 2.840.1.423737.3.579. 2. 1953 Unknown [id number] 2.16.840.1.978733.3.579. 2.627 1953 Unknown [id number] 2.16.840.1.011472.3.579. 2. 1953 Unknown [id number] 2.16.840.1.849743.3.579. 2. 1953 Unknown [id number] 2.16.840.1.969158.3.579. 2. 1953 Unknown [id number] 2.16.840.1.650224.3.579. 2. 1953 Unknown [id number] 2.16.840.1.096251.3.579. 2. 1953 Unknown [id number] 2.16.840.1.710324.3.579. 2. 1953 Unknown [id number] 2..840.1.296479.3.579. 2. 1953 Unknown [id number] 2.16.840.1.108404.3.579. 2. 1953 Unknown [id number] 2.16.840.1.978225.3.579. 2. 1953 Unknown [id number] 2.16.840.1.288960.3.579. 2. 1953 Unknown [id number] 2.16.840.1.887762.3.579. 2. 1953 Unknown [id number] 2.16.840.1.042687.3.579. 2. 1953 Unknown [id number] 2.16.840.1.091598.3.579. 2.62 Unknown [id number] 2.16.840.1.272126.3.579. 2.462 Unknown [id number] 2.16.840.1.408533.3.579. 2.462 Unknown [id number] 2.16.840.1.863674.3.579. 2.462 Unknown [id number] 2.16.840.1.433598.3.579. 2.462 Unknown [id number] 2.16.840.1.826591.3.579. 2.462 Unknown [id number] 2.16.840.1.244469.3.579. 2.462 Unknown [id number] 2.16.840.1.641398.3.579. 2.462 Unknown [id number] 2.16.840.1.428851.3.579. 2.462 Unknown [id number] 2.16.840.1.743942.3.579. 2.462 Unknown [id number] 2..840.1.351462.3.579. 2.462 Unknown [id number] 2.840.1.336605.3.579. 2.462 Unknown [id number] 2.840.1.527269.3.579. 2.462 Unknown [id number] 2.840.1.601942.3.579. 2.462 Unknown [id number] 2..840.1.957990.3.579. 2.462 Unknown [id number] 2.840.1.697046.3.579. 2.462 Unknown [id number] 2.840.1.664844.3.579. 2.462 Unknown [id number] 2.16.840.1.979817.3.579. 2.462 Unknown [id number] 2.16.840.1.839406.3.579. 2.462 Unknown [id number] 2.16.840.1.471374.3.579. 2.462 Unknown [id number] 2.16.840.1.269051.3.579. 2.462 Unknown [id number] 2.16.840.1.809916.3.579. 2.462 Unknown [id number] 2.16.840.1.886463.3.579. 2.462 Unknown [id number] 2.16840.1.432327.3.579. 2.462 Unknown [id number] 2.16.840.1.070340.3.579. 2.462 Unknown [id number] 2.16840.1.358251.3.579. 2.462 Unknown [id number] 2.16840.1.693833.3.579. 2.462 Unknown [id number] 2.16840.1.149093.3.579. 2.462 Unknown [id number] 2.840.1.265754.3.579. 2.462 Unknown [id number] 2.840.1.162785.3.579. 2.462 Unknown [id number] 2.840.1.450514.3.579. 2.462 Unknown [id number] 2.840.1.229879.3.579. 2.462 Unknown [id number] 2.840.1.016098.3.579. 2.462 Unknown [id number] 2.840.1.164899.3.579. 2.462 Unknown [id number] 2.840.1.595594.3.579. 2.462 Unknown [id number] 2.840.1.145965.3.579. 2.462 Unknown [id number] 2.840.1.686330.3.579. 2.462 Unknown [id number] 2.16840.1.121025.3.579. 2.462 Unknown [id number] 2.16840.1.736349.3.579. 2.462 Unknown [id number] 2.840.1.006431.3.579. 2.462 Unknown [id number] 2.16.840.1.092535.3.579. 2.462 Unknown [id number] 2.16.840.1.132014.3.579. 2.462 Unknown [id number] 2.16.840.1.974508.3.579. 2.462 Unknown [id number] 2.16.840.1.362803.3.579. 2.462 Unknown [id number] 2.16.840.1.676223.3.579. 2.462 Unknown [id number] 2.16.840.1.181180.3.579. 2.462 Social History Date Type Detail Facility Start: 10-04-2020 End: 02-27-2025 Ex-smoker (finding) [facility] Start: 1955 Sex Assigned At Female A [facility] Start: 12-23-1963 End: 12-23-2008 History of tobacco use Current smoker [facility] Start: 12-23-1963 End: 12-23-2008 History of tobacco use Cigarette Smoker [facility] Start: 07-10-2021 End: 02-27-2025 Alcohol intake Current non-drinker of alcohol (finding) [facility] Start: 05-25-2022 End: 05-12-2023 Exposure to SARS-CoV-2 (event) Not sure [facility] Start: 07-10-2021 End: 05-12-2023 Cigarettes smoked current (pack per day) - Reported 1.5 [facility] Start: 07-10-2021 End: 02-27-2025 Tobacco use and exposure Smokeless tobacco non-user [facility] Start: 05-12-2023 End: 02-23-2025 Tobacco use panel [facility] Adult Depression Screening Assessment 3 [facility] Start: 10-23-2021 Gender identity Identifies as female gender (finding) [facility] Start: 10-23-2021 Sexual orientation Heterosexual (fin ding) [facility] Start: 09-28-2023 End: 02-29-2024 Tobacco smoking status NHIS Unknown if ever smoked [facility] Start: 11-18-2014 None [facility] Start: 11-18-2014 Spouse/ Signif icant Other [facility] Start: 11-18-2014 Non-smoker [facility] Start: 10-01-2023 Cigarettes [facility] Start: 1955 Sex assigned at Not on file [facility] [employer] Start: 06-16-2024 End: 03-10-2025 Sex Female (finding) [facility] [employer] NEGATED: Highlighted row [facility] Medical Equipment Procedure Code Equipment Code Equipment Origin al Text Equipment Identifier Dates [employer] ICD G247 FDA Start: 05-12-2022 [employer] ICD G247 FDA Start: 05-12-2022 [employer] ICD G247 FDA Start: 05-12-2022 [employer] ICD G247 FDA Start: 05-12-2022 [employer] ICD G247 FDA Start: 05-12-2022 [employer] ICD G247 FDA Start: 05-12-2022 [employer] ICD G247 FDA Start: 05-12-2022 [employer] ICD G247 FDA Start: 05-12-2022 [employer] ICD G247 FDA Start: 05-12-2022 Icd-05/12/2022 [id number] Start: 05-12-2022 Comment on above: Description: [facility] G24 7 RA [id number] [employer] ICD G247 FDA Start: 05-12-2022 [employer] ICD G247 FDA Start: 05-12-2022 [id number] Start: 05-12-2022 [id number] Start : 05-12-2022 [id number] Start : 05-12-2022 [employer] ICD G247 FDA Start: 05-12-2022 [employer] ICD G247 FDA Start: 05-12-2022 Goals Date Patient Goal Desired Activity /State Functional Status Date Assessment Result Facility 04-20-2025 Functional status Ambulates;Bath room Privilege [facility] Work Phone: 04-19-2025 Functional status Assistive Edilma mala Standard Walker [facility] Work Phone: 03-15-2024 Functional status Ambulates;Up ad ann marie [facility] Work Phone: 02-29-2024 Functional status Chair [facility] Work Phone: 10-28-2023 Functional Status flight to bed [facility] 10-12-2023 Functional status Activity Abili ty Standby Assist [facility] Work Phone: 10-11-2023 Functional status Ambulates [facility] Work Phone: 10-07-2023 Functional status Ambulates [facility] Work Phone: 10-06-2023 Functional status Rolling Walker [facility] Work Phone: 10-01-2023 Functional status Ambulates [facility] Work Phone: 08-11-2023 Functional Status Room check performed [facility] 08-04-2023 Functional Status Standard Safet y ID band on, Call device within reach, Bed in low position, Wheels locked, Upper/Half-Length side-rails up, Bedside Cart Locked, Safety level maintained [facility] 08-20-2022 Functional Status Minimum assistance [facility] 08-19-2022 Functional Status 20 [facility] 08-19-2022 Functional Status Standard Safet y ID band on, Call device within reach, Bed in low position, Wheels locked, Upper/Half-Length side-rails up, Phone within reach, personal items within reach, Visitor at bedside, Safety level maintained [facility] 05-22-2022 Functional Status Resting [facility] 04-26-2022 Functional Status Independent [facility] 04-03-2022 Functional Status Katie alfaro 04-03-2022 Functional Status Katie [facility] 04-02-2022 Functional Status Katie [facility] 04-02-2022 Functional Status [facility] 02-05-2015 Are you deaf, or do you have serious difficulty hearing No 02/05/2015 4:06 PM EDT Armida Ballard LPN No [facility] 02-05-2015 Are you blind, or do you have serious difficulty seeing, even when wearing glasses No 02/05/2015 4:06 PM EDT Armida Ballard LPN No [facility] 02-05-2015 Do you have serious difficulty walking or climbing stairs No 02/05/2015 4:06 PM EDT Armida Ballard LPN No [facility] 02-05-2015 Do you have difficul ty dressing or bathing No 02/05/2015 4:06 PM EDT Armida Ballard LPN No [facility] 02-05-2015 Because of a physica l, mental, or emotional condition, do you have difficulty doing errands alone such as visiting a physician's office or shopping No 02/05/2015 4:06 PM EDT Armida Ballard LPN No [facility] Mental Status Date Assessment Result Facility 04-20-2025 Cognitive function Voice/Name [facility] Work Phone: 04-19-2025 Cognitive function Level Of Cons ciousness Awake;Alert;Follows Commands [facility] Work Phone: 03-15-2024 Cognitive function Voice/Name [facility] Work Phone: 03-13-2024 Cognitive function Cooperative [facility] Work Phone: 02-29-2024 Cognitive function Voice/Name [facility] Work Phone: 10-12-2023 Cognitive function Voice/Name [facility] Work Phone: 10-07-2023 Cognitive function Voice/Name [facility] Work Phone: 10-06-2023 Cognitive function Voice/Name [facility] Work Phone: 10-01-2023 Cognitive function Voice/Name [facility] Work Phone: 09-28-2023 Cognitive function Voice/Name [facility] Work Phone: 08-04-2023 Mental Status Orientation Oriented x 4 [facility] 08-20-2022 Mental Status Orientation Oriented x 4 [facility] 08-19-2022 Mental Status [facility] 05-22-2022 Mental Status Oriented x 4 [facility] 04-25-2022 Mental Status Oriented x 4 [facility] 04-03-2022 Mental Status [facility] 04-02-2022 Mental Status [facility] 02-05-2015 Because of a physica l, mental, or emotional condition, do you have serious difficulty concentrating, remembering, or making decisions No 02/05/2015 4:06 PM EDT Armida Ballard LPN No [facility] Clinical Notes 02-21-2015 to 04-23-2025 Deisi Post - 04/23/2025 10:27 AM EDT Note Date & Type Note Facility 04-23-2025 History of Present illness Narrative [facility] Medication(s): Austedo XR Patient's current medication list and adherence status to current therapy were reviewed by Specialty Pharmacy clinical pharmacist to identify any new drug interactions or non-compliance to therapy. Therapy continues to be appropriate for disease, patient response, and medical condition. Verification of therapeutic benefit and effectiveness with current therapy was completed. Adverse events, barriers in adherence, and side effects were assessed and addressed if applicable. Will proceed with refill with no changes in therapy - patient progressing towards achieving therapeutic goals based on medication-specific laboratory parameters, disease state markers and outcomes. Office/provider notes have been reviewed prior to dispensing the medication. Social Work Case Manager Assessment Patient confirmed: Yes Med/dose confirmed: Yes Supplies needed: No supplies needed Missed doses: No Estimated days supply on hand: 10 Next cycle/dose due: 04/24/25 Copay amount: 0 Payment confirmed: Yes Delivery method: FedEx Signature required: No Delivery address: [address] [place] [id number] Delivery date: 04/26/25 Questions or concerns for the pharmacist?: No Did you have any side effects believed to be related to this medication, that resulted in hospitalization?: No Current Outpatient Medications on File Prior to Visit Medication Sig deutetrabenazine XR (AUSTEDO XR) 6 mg tablet Take 1 tablet by mouth once daily. Acetaminophen 500 mg cap 500 mg. (Patient taking differently: 500 mg. PRN) albuterol sulfate 90 mcg/actuation aebs (Patient taking differently: PRN) oxyCODONE-acetaminophen (PERCOCET) 5-325 mg tablet 1 TABLET ORAL EVERY 6 HOURS NEEDED FOR SEVERE PAIN 30 DAYS lamoTRIgine (LAMICTAL) 100 mg tablet (Patient taking differently: Take 100 mg by mouth once daily.) LINZESS 145 mcg capsule Take 145 mcg by mouth every morning. polyethylene glycol 3350 (MIRALAX) 17 gram/dose powder ferrous sulfate (IRON) 325 mg (65 mg iron) tablet Take 325 mg by mouth once daily. hyoscyamine sulfate 0.125 mg ODT Take 0.125 mg by mouth three times a day. Docusate Sodium 100 mg tab Take by mouth once daily. polyethylene glycol 400 (BLINK TEARS OPHTHALMIC) Use in eyes. clopidogrel (PLAVIX) 75 mg tablet Take 75 mg by mouth once daily. Takes MWF metoprolol succinate ER (TOPROL XL) 25 mg 24 hr tablet Take 25 mg by mouth once daily. cholecalciferol (VITAMIN D3) 1,000 unit tab tablet Take 1,000 Units by mouth once daily. baclofen 5 mg tablet 1 tab po qid. Do not abruptly stop if at high dose, risk for withdrawal seizures. (Patient taking differently: Take 5 mg by mouth three times a day. 1 tab po qid. Do not abruptly stop if at high dose, risk for withdrawal seizures.) clonazePAM (KLONOPIN) 1 mg tablet Take 1 mg by mouth daily at bedtime. furosemide (LASIX) 20 mg tablet as needed. traZODone (DESYREL) 50 mg tablet Take 50 mg by mouth as needed. BABY ASPIRIN ORAL Take 81 mg by mouth every other day. pantoprazole DR (PROTONIX) 40 mg tablet Take 1 tablet by mouth twice daily. metFORMIN (GLUCOPHAGE) 500 mg tablet Take 1 tablet by mouth twice daily. (Patient taking differently: Take 500 mg by mouth daily with breakfast.) rosuvastatin (CRESTOR) 5 mg ORAL Tab 1 qd No current facility-administered medications on file prior to visit. [facility] SPECIALTY CLINICAL ASSESSMENT - NEUROLOGY V7: Assessment to use: Refill Date of influenza vaccination reminder: 03/28/2025 Date of most recent vaccination assessment: 03/28/2025 Treatment Plan Information: Austedo (deutetrabenazine) Swallow whole, do not crush chew or split Store at room temp, protect from light and moisture. Take immediate release formulation with food Extended release: take with or without food Potential SE: Drowsiness, fatigue, insomnia, anxiety , depression, agitation, diarrhea, dry mouth, insomnia, nose/throat irritation, UTI. Seek treatment immediately if SX of Anaphylaxis, Depression, thoughts of self harm, UTI or blood in urine.Worsening of movements/ confusion, changes in eyesight Monitor: Electrolytes, EKG, Sx depression or suicidal ideation, Sx of neuroleptic malignant syndrome NMS (Rigid muscles, fever, confusion) DDI: Percocet: These agents should only be combined if alternative treatment options are inadequate. If combined, limit the dosages and duration of each drug to the minimum possible while achieving the desired clinical effect. risk of slowed or difficult breathing and/or sedation and monitor patients closely for evidence of excessive RPG PROGRAMMER ANALYST depression (ie, respiratory depression, hypotension, sedation, or coma). Vaccines Est. Tx Plan Start Date: No information available Estimated Start Date Info: No information available Est. Estimated Treatment Duration: No information available Deisi Post CPhT [facility], Inflammatory P: [phone] F: [phone] documented in this encounter [facility] 04-23-2025 Note HNO ID: [id number] Author: ?, ?, ? Service: ? Author Type: ? Type: Progress Notes Filed: 04/23/2025 13:15 Note Text: [facility] Medication(s): Austedo XR Patient's current medication list and adherence status to current therapy were reviewed by Specialty Pharmacy clinical pharmacist to identify any new drug interactions or non-compliance to therapy. Therapy continues to be appropriate for disease, patient response, and medical condition. Verification of therapeutic benefit and effectiveness with current therapy was completed. Adverse events, barriers in adherence, and side effects were assessed and addressed if applicable. Will proceed with refill with no changes in therapy - patient progressing towards achieving therapeutic goals based on medication-specific laboratory parameters, disease state markers and outcomes. Office/provider notes have been reviewed prior to dispensing the medication. Social Work Case Manager Assessment Patient confirmed: Yes Med/dose confirmed: Yes Supplies needed: No supplies needed Missed doses: No Estimated days supply on hand: 10 Next cycle/dose due: 04/24/25 Copay amount: 0 Payment confirmed: Yes Delivery method: FedEx Signature required: No Delivery address: [address] [place] [address] Delivery date: 04/26/25 Questions or concerns for the pharmacist?: No Did you have any side effects believed to be related to this medication, that resulted in hospitalization?: No Current Outpatient Medications on File Prior to Visit Medication Sig deutetrabenazine XR (AUSTEDO XR) 6 mg tablet Take 1 tablet by mouth once daily. Acetaminophen 500 mg cap 500 mg. (Patient taking differently: 500 mg. PRN) albuterol sulfate 90 mcg/actuation aebs (Patient taking differently: PRN) oxyCODONE-acetaminophen (PERCOCET) 5-325 mg tablet 1 TABLET ORAL EVERY 6 HOURS NEEDED FOR SEVERE PAIN 30 DAYS lamoTRIgine (LAMICTAL) 100 mg tablet (Patient taking differently: Take 100 mg by mouth once daily.) LINZESS 145 mcg capsule Take 145 mcg by mouth every morning. polyethylene glycol 3350 (MIRALAX) 17 gram/dose powder ferrous sulfate (IRON) 325 mg (65 mg iron) tablet Take 325 mg by mouth once daily. hyoscyamine sulfate 0.125 mg ODT Take 0.125 mg by mouth three times a day. Docusate Sodium 100 mg tab Take by mouth once daily. polyethylene glycol 400 (BLINK TEARS OPHTHALMIC) Use in eyes. clopidogrel (PLAVIX) 75 mg tablet Take 75 mg by mouth once daily. Takes MWF metoprolol succinate ER (TOPROL XL) 25 mg 24 hr tablet Take 25 mg by mouth once daily. cholecalciferol (VITAMIN D3) 1,000 unit tab tablet Take 1,000 Units by mouth once daily. baclofen 5 mg tablet 1 tab po qid. Do not abruptly stop if at high dose, risk for withdrawal seizures. (Patient taking differently: Take 5 mg by mouth three times a day. 1 tab po qid. Do not abruptly stop if at high dose, risk for withdrawal seizures.) clonazePAM (KLONOPIN) 1 mg tablet Take 1 mg by mouth daily at bedtime. furosemide (LASIX) 20 mg tablet as needed. traZODone (DESYREL) 50 mg tablet Take 50 mg by mouth as needed. BABY ASPIRIN ORAL Take 81 mg by mouth every other day. pantoprazole DR (PROTONIX) 40 mg tablet Take 1 tablet by mouth twice daily. metFORMIN (GLUCOPHAGE) 500 mg tablet Take 1 tablet by mouth twice daily. (Patient taking differently: Take 500 mg by mouth daily with breakfast.) rosuvastatin (CRESTOR) 5 mg ORAL Tab 1 qd No current facility-administered medications on file prior to visit. [facility] RX SPECIALTY CLINICAL ASSESSMENT - NEUROLOGY V7: Assessment to use: Refill Date of influenza vaccination reminder: 03/28/2025 Date of most recent vaccination assessment: 03/28/2025 Treatment Plan Information: Austedo (deutetrabenazine) Swallow whole, do not crush chew or split Store at room temp, protect from light and moisture. Take immediate release formulation with food Extended release: take with or without food Potential SE: Drowsiness, fatigue, insomnia, anxiety , depression, agitation, diarrhea, dry mouth, insomnia, nose/throat irritation, UTI. Seek treatment immediately if SX of Anaphylaxis, Depression, thoughts of self harm, UTI or blood in urine.Worsening of movements/ confusion, changes in eyesight Monitor: Electrolytes, EKG, Sx depression or suicidal ideation, Sx of neuroleptic malignant syndrome NMS (Rigid muscles, fever, confusion) DDI: Percocet: These agents should only be combined if alternative treatment options are inadequate. If combined, limit the dosages and duration of each drug to the minimum possible while achieving the desired clinical effect. risk of slowed or difficult breathing and/or sedation and monitor patients closely for evidence of excessive RPG [employer]GRAM[employer]LYST depression (ie, respiratory depression, hypotension, sedation, or coma). Vaccines Est. Tx Plan Start Date: No information available Estimated Start Date Info: No information available Est. Estimated Treatmen (more content not included)... [facility] 04-20-2025 Note [facility] [place] 04-20-2025 Discharge summary [facility] 04-20-2025 Discharge summary [facility] 04-20-2025 Note [facility] [place] 04-19-2025 History and physi gloira note Note Date/Time April 19, 2025 2:36pm [facility] Medical Records Department [address] [place] [address] H&P Exam - Hospitalist 04/19/25 1124 MR#: [id number] Acct: [id number] Name: MANSI CARO Rep #:[id number] : 1955 70 From: Maximo levin DO PCP: Marci Lopez DO Status:ADM I NO Location[place] [facility] [place]-3 HPI - General General Date of Admission: 04/19/25 Date of Service: 04/19/25 Chief Complaint: Worsening weakness HPI Narrative MANSI CARO, is a 70 F who presented to [facility] ED on 04/19/2025 with worsening weakness. Patient typically walks with a walker at home. Patient has been noted that she had not been eating or drinking very wellfor the past several weeks and on the morning of 04/18 she was too weak to get out of bed on her own so she came to the ED for further evaluation. In the ED she was hemodynamically stable on room air. Lab workup was unremarkable. She was given a liter of fluids and nursing staff attempted to get her up out of bedto work with her. She was able to walk with two-person assist but she had significant difficulty getting out of bed. Thus, hospitalist was contacted for admission. I saw the patient at bedside on the floor shortly after arriving over the ED, was present. Patient was laying back comfortably in bed, conversing normally, in no acute distress. Noted that she continues to feel fatigued and weak currently, similar to this morning. No other concerns at thistime. [facility] Medical History Ischemic colitis History of left heart catheterization History of mechanical ventilation Cardiogenic pulmonary edema Acute hypoxic respiratory failure Multiple lung nodules Major depressive disorder Left bundle branch block NSTEMI (non-ST elevated myocardial infarction) GERD (gastroesophageal reflux disease) Diabetic peripheral vascular disease Diabetic nephropathy Chronic kidney disease (CKD) Bleeding ulcer Anxiety Dyslipidemia Chronic systolic heart failure Pacemaker Congestive heart failure (CHF) Cerebral palsy Anxiety and depression Heart failure with reduced ejection fraction Insomnia Transient ischemic attack AV node dysfunction Ischemic cardiomyopathy Presence of biventricular implantable cardioverter-defibrillator Ulcer Restless legs High cholesterol Former smoker ICD (implantable cardioverter-defibrillator) in place Coronary artery disease CVA (cerebral vascular accident) PFO (patent foramen ovale) Cardiac resynchronization therapy defibrillator (HEAD BELLHOP CAPTAIN-D) in place Myocarditis Hyperlipidemia Hypertension Home Medications ?Medication ?Instructions ?Recorded ?Last Taken ?Type clonazepam 1 mg tablet 1 mg PO QHS anxiety 11/18/14 07/02/24 History trazodone 50 mg tablet 50 mg PO DAILY Anxiety 11/1807/02/24 History cholecalciferol (vitamin D3) 25 50 mcg (2 x 25 mcg (1, 000 unit)) 09/30/23 07/02/24 Rx mcg (1,000 unit) tablet PO QHS supplement #0 tabs aspirin 81 mg tablet,delayed 81 mg PO .COMPLEX heart 1 12/01/22 07/02/24 History release rosuvastatin 20 mg tablet 20 mg PO QHS cholesterol 12/1507/02/24 History acetaminophen 500 mg tablet 500 mg PO Q6H PRN PRN Pain Score 06/13/24 07/01/24 History 1-10 docusate sodium 100 mg capsule 100 mg PO DAILY PRN con stipation 06/13/24 07/02/24 History furosemide 20 mg tablet 20 mg PO QDAY PRN for 2lb we ight 06/13/24 06/19/24 History gain pantoprazole 40 mg tablet,delayed 40 mg PO DAILY 07/17 Unknown History release baclofen 5 mg tablet 5 mg PO QDAY muscle spasms 0 08/03/24 Unknown History albuterol sulfate 90 mcg/actuation 1 puff inhalation Q 6H PRN 09/09/24 Unknown Rx aerosol inhaler shortness of breath or wheez ing #8.5 grams escitalopram oxalate 5 mg tablet 5 mg PO QDAY 11/28/24 Unknown History polyethylene glycol 3350 17 17 g PO DAILY 11/28/24 Unk nown History gram/dose oral powder (Miralax) metformin 500 mg tablet 500 mg PO QDAY 01/18/25 Unkn own History metoprolol succinate 25 mg 25 mg PO QDAY 01/18/25 Unkn own History tablet,extended release 24 hr (Toprol XL) lamotrigine 100 mg tablet 100 mg PO QDAY 01/23/25 Unkn own History polyethylene glycol 400 0.25 % eye drp ophthalmic (eye ) 01/23/25 Unknown History gel drops (Blink Gel Tears) ferrous sulfate 325 mg (65 mg 325 mg PO QDAY 02/13/25 Unknown History iron) tablet (Feosol) linaclotide 145 mcg capsule 145 mcg PO QAM #60 caps Unknown Rx (Linzess) hyoscyamine sulfate 0.125 mg tablet 0.125 mg PO TID ND N dyspepsia #90 03/05/25 Unknown Rx tabs clopidogrel 75 mg tablet 75 mg PO .COMPLEX 04/19/25 U nknown History deutetrabenazine 6 mg 6 mg PO DAILY 04/19/25 Unkno wn History tablet,extended release 24 hr (Austedo XR) oxycodone-acetaminophen 5 mg-325 1 tab PO Q6H PRN PRN severe pain 04/19/25 Unknown History mg tablet phenazopyridine 100 mg tablet 100 mg PO TID PRN PRN bl adder pain 04/19/25 Unknown History Allergy/AdvReac Type Severity Reaction Status Date / Time No Known Allergies Allergy Verified 04/19/25 03:35 Family History Father Heart disease Myocardial infarction Mother Anxiety and depression Suicide and self-inflicted injury from suicide age 52. Surgical History Presence of stent in coronary artery History of bilateral cataract extraction History of skin surgery S/P colon polypectomy History of cardiac defibrillator placement History of cholecystectomy History of coronary artery stent placement Social History household members: spouse Smoking Status: Former smoker how long ago did patient quit smokin-1.5 ppd from teen until quit in 2008. alcohol intake: never substance use type: does not use caffeine: Yes seatbelt use: always do you feel safe at home: Yes additional social history: - Song FUENTES Constitutional Constitutional: Reports fatigue and weakness; Denies chills or fever(s) Eyes Eyes: Denies change in vision Cardiovascular Cardiovascular: Denies chest pain Respiratory/Chest Respiratory/Chest: Denies shortness of breath at rest Gastrointestinal Gastrointestinal: Denies abdominal pain Genitourinary Genitourinary: Denies dysuria Musculoskeletal Musculoskeletal: Denies arthralgias or myalgias Neurologic Neurologic: Denies dizziness, focal weakness or headache(s) Vital Signs Vital Signs Vital Signs: 04/19/25 03:35 04/19/25 03:35 04/19/25 03:40 Temperature 98.4 F 98.4 F Temperature Source Oral Oral Pulse Rate 77 79 Respiratory Rate 21 H 20 H Respiratory Effort Normal Respiratory Pattern Normal Blood Pressure 163/97 H 163/97 H Blood Pressure Mean 119 119 Pulse Ox 98 98 Oxygen Delivery Method Room Air Room Air 04/19/25 04:40 04/19/25 05:00 04/19/25 06:00 Temperature 98.4 F 98.4 F Temperature Source Oral Oral Pulse Rate 70 69 70 Respiratory Rate 22 H 19 H 16 Respiratory Effort Respiratory Pattern Blood Pressure 139/60 H 151/76 H 133/111 H Blood Pressure Mean 86 101 118 Pulse Ox 98 97 98 Oxygen Delivery Method Room Air Room Air Room Air 04/19/25 07:00 04/19/25 08:00 04/19/25 09:00 Temperature Temperature Source Pulse Rate 66 78 78 Respiratory Rate 18 18 18 Respiratory Effort Respiratory Pattern Blood Pressure 123/61 H 193/91 H 189/86 H Blood Pressure Mean 81 125 120 Pulse Ox 96 96 96 Oxygen Delivery Method Room Air Room Air Room Air 04/19/25 10:00 04/19/25 11:00 Temperature Temperature Source Pulse Rate 77 77 Respiratory Rate 18 18 Respiratory Effort Respiratory Pattern Blood Pressure 180/78 H 178/76 H Blood Pressure Mean 112 110 Pulse Ox 96 96 Oxygen Delivery Method Room Air Room Air Weight Weight: 64.4 kg Body Mass Index (BMI) 21.6 Physical Exam Const alert, oriented x3, no apparent distress and average body habitus Constitutional Narrative: Elderly female, moderately fatigued and weak appearing, otherwise sitting back comfortably in bed, conversing normally, in no acute distress. General Appearance: cooperative and comfortable HEENT normocephalic, head/scalp atraumatic, hearing grossly normal bilaterally, nasal mucous membranes and turbinates normal and moist oral mucous membranes Eyes PERRL, EOMs intact bilaterally and conjunctivae normal Neck full ROM Chest inspection of chest normal Resp normal respiratory effort, normal air movement, no use of accessory muscles and clear to auscultation bilaterally Cardio regular rate, regular rhythm, no murmurs and peripheral pulses 2+ throughout GI normal to inspection, nondistended, normoactive bowel sounds, soft to palpation,non-tender and non-distended Back/Spine normal ROM Extremity normal to inspection and no pedal edema Skin no rashes or lesions noted Neuro oriented x3, moves all extremities and no focal motor deficits Neuro Narrative: Generalized weakness noted. Speech: speech normal Psych mental status grossly normal Results Lab / Micro Data 04/19/25 03:45 04/19/25 03:45 Labs: Laboratory Results - last 24 hr 04/19/25 03:45: WBC 8.7, RBC 3.32 L, Hgb 10.4 L, Hct 30.8 L, MCV 92.8, MCH 31.3,MCHC 33.8, RDW Std Deviation 44.9 H, RDW Coeff of Edita 13.3, Plt Count 189, MPV 10.8, Immature Gran % (Auto) 0.300, Neut % (Auto) 78.3 H, Lymph % (Auto) 10.4 L,[place] % (Auto) 8.2, Eos % (Auto) 2.5, Baso % (Auto) 0.3, Absolute Neuts (auto) 6.8, Absolute Lymphs (auto) 0.90, Nucleated RBC % 0, Sodium 135, Potassium 4.4, Chloride 99, Carbon Dioxide 25.9, Anion Gap 10, BUN 20 H, Creatinine 1.02, EstimCreat Clear Calc 50.29, Est GFR (MDRD) Non-Af 58 L, BUN/Creatinine Ratio 19.3, Glucose 229 H, Calcium 9.0, Magnesium 1.6, TSH 4.050 04/19/25 04:13: Urine Color Yellow, Urine Clarity Clear, Urine pH 6.5, Ur Specific [place] 1.010, Urine Protein 15 H, Urine Glucose (UA) 100 H, Urine Ketones Negative, Urine Occult Blood Negative, Urine Nitrite Negative, Urine Bilirubin Negative, Urine Urobilinogen Normal, Ur Leukocyte Esterase Negative, Urine RBC 0 SEEN, Urine WBC 0 SEEN, Ur Squamous Epith Cells 0 SEEN, Urine Bacteria 0 SEEN, Urine Mucus 0 SEEN Assessment & Plan Assessment/Plan (1) Generalized weakness: PLAN: Plan Patient is a 70-year-old female who presented to [facility] ED on 04/19/2025 with worsening weakness. 1. Acute on chronic debility ? Admit under observation status to [facility]. PT/OT/case management consulted. Patient with chronic debility at baseline, requires walker for ambulation. Has had worsening generalized weakness over the past several weeks. No abnormalities on admit. No focal weakness noted. Suspect primarily worsening weakness in setting of deconditioning. Appreciate therapy recommendations. Will likely need SNF placement on discharge. Chronic medical conditions: ? Type 2 diabetes mellitus: Hold home metformin. Will treat with sliding scale insulin with meals while inpatient, adjust as needed. ? History of CAD with stenting, history of heart failure s/p ICD placement with recovered ejection fraction, history of heart block s/p pacemaker placement, history of CVA, hypertension, hyperlipidemia: Hypertensive to the 150s to 160s on admit but otherwise stable. Last echo in 09/14 showed EF 55%. Continue homeaspirin, Plavix, statin, and Toprol. ? Mild chronic iron deficiency anemia: Hemoglobin stable at baseline around 10 on admit. Continue home iron supplement. ? Anxiety/depression: Stable. Continue home escitalopram, lamotrigine and diazepam at night as needed. ? Muscle spasms: Continue home baclofen. ? GERD: Continue home PPI. ? Chronic constipation, history of ischemic colitis: Follows with outpatient GI. On Linzess and MiraLAX at home. Unfortunately not able to take Linzess while here. Will treat with scheduled MiraLAX and senna while inpatient. DVT prophylaxis: Lovenox CODE STATUS: Full code, verified Expected disposition: Likely SNF, 1 to 2 days Total clinical time spent by myself addressing the patient's medical issues, reviewing all the data, and collaborating with patient's care team: 55 minutes. Charges/Coding Visit Charges Inpatient E&M: 97923 Init Hosp L2 04/19/25 1436 <Electronically signed by Maximo Orosco DO> Cosigner Signature (if applicable): CC: Dr. Maximo Orosco DO; Marci Lopez DO~ Signed [facility] Work Phone: [phone] History and physical note [facility] Medical Records Department [address] [place] [address] H&P Exam - Hospitalist 04/19/25 1124 MR#: [id number] Acct: [id number] Name: AMNSI CARO Rep #:[id number] : 1955 70 From: Maximo levin DO PCP: Marci Lopez DO Status:ADM I NO [place] [facility] [place] HPI - General General Date of Admission: 04/19/25 Date of Service: 04/19/25 Chief Complaint: Worsening weakness HPI Narrative MANSI CARO, is a 70 F who presented to [facility] ED on 04/19/2025 with worseningweakness. Patient typically walks with a walker at home. Patient has been noted that she had not been eating or drinking very wellfor the past several weeks and on the morning of 04/18 she was too weak to get out of bed on her own so she came to the ED for further evaluation. In the ED she was hemodynamically stable on room air. Lab workup was unremarkable. She was given a liter of fluids and nursing staff attempted to get her up out of bedto work with her. She was able to walk with two-person assist but she had significant difficulty getting out of bed. Thus, hospitalist was contacted for admission. I saw the patient at bedside on the floor shortly after arriving over the ED, was present. Patient was laying back comfortably in bed, conversing normally, in no acute distress. Noted that she continues to feel fatigued and weak currently, similar to this morning. No other concerns at thistime. [facility] Medical History Ischemic colitis History of left heart catheterization History of mechanical ventilation Cardiogenic pulmonary edema Acute hypoxic respiratory failure Multiple lung nodules Major depressive disorder Left bundle branch block NSTEMI (non-ST elevated myocardial infarction) GERD (gastroesophageal reflux disease) Diabetic peripheral vascular disease Diabetic nephropathy Chronic kidney disease (CKD) Bleeding ulcer Anxiety Dyslipidemia Chronic systolic heart failure Pacemaker Congestive heart failure (CHF) Cerebral palsy Anxiety and depression Heart failure with reduced ejection fraction Insomnia Transient ischemic attack AV node dysfunction Ischemic cardiomyopathy Presence of biventricular implantable cardioverter-defibrillator Ulcer Restless legs High cholesterol Former smoker ICD (implantable cardioverter-defibrillator) in place Coronary artery disease CVA (cerebral vascular accident) PFO (patent foramen ovale) Cardiac resynchronization therapy defibrillator (HEAD BELLHOP CAPTAIN-D) in place Myocarditis Hyperlipidemia Hypertension Home Medications ?Medication ?Instructions ?Recorded ?Last Taken ?Type clonazepam 1 mg tablet 1 mg PO QHS anxiety 11/18/14 07/02/24 History trazodone 50 mg tablet 50 mg PO DAILY Anxiety 11/1807/02/24 History cholecalciferol (vitamin D3) 25 50 mcg (2 x 25 mcg (1, 000 unit)) 09/30/23 07/02/24 Rx mcg (1,000 unit) tablet PO QHS supplement #0 tabs aspirin 81 mg tablet,delayed 81 mg PO .COMPLEX heart 1 12/01/22 07/02/24 History release rosuvastatin 20 mg tablet 20 mg PO QHS cholesterol 12/1507/02/24 History acetaminophen 500 mg tablet 500 mg PO Q6H PRN PRN Pain Score 06/13/24 07/01/24 History 1-10 docusate sodium 100 mg capsule 100 mg PO DAILY PRN con stipation 06/13/24 07/02/24 History furosemide 20 mg tablet 20 mg PO QDAY PRN for 2lb we ight 06/13/24 06/19/24 History gain pantoprazole 40 mg tablet,delayed 40 mg PO DAILY 07/17 Unknown History release baclofen 5 mg tablet 5 mg PO QDAY muscle spasms 0 08/03/24 Unknown History albuterol sulfate 90 mcg/actuation 1 puff inhalation Q 6H PRN 09/09/24 Unknown Rx aerosol inhaler shortness of breath or wheez ing #8.5 grams escitalopram oxalate 5 mg tablet 5 mg PO QDAY 11/28/24 Unknown History polyethylene glycol 3350 17 17 g PO DAILY 11/28/24 Unk nown History gram/dose oral powder (Miralax) metformin 500 mg tablet 500 mg PO QDAY 01/18/25 Unkn own History metoprolol succinate 25 mg 25 mg PO QDAY 01/18/25 Unkn own History tablet,extended release 24 hr (Toprol XL) lamotrigine 100 mg tablet 100 mg PO QDAY 01/23/25 Unkn own History polyethylene glycol 400 0.25 % eye drp ophthalmic (eye ) 01/23/25 Unknown History gel drops (Blink Gel Tears) ferrous sulfate 325 mg (65 mg 325 mg PO QDAY 02/13/25 Unknown History iron) tablet (Feosol) linaclotide 145 mcg capsule 145 mcg PO QAM #60 caps Unknown Rx (Linzess) hyoscyamine sulfate 0.125 mg tablet 0.125 mg PO TID ND N dyspepsia #90 03/05/25 Unknown Rx tabs clopidogrel 75 mg tablet 75 mg PO .COMPLEX 04/19/25 U nknown History deutetrabenazine 6 mg 6 mg PO DAILY 04/19/25 Unkno wn History tablet,extended release 24 hr (Austedo XR) oxycodone-acetaminophen 5 mg-325 1 tab PO Q6H PRN PRN severe pain 04/19/25 Unknown History mg tablet phenazopyridine 100 mg tablet 100 mg PO TID PRN PRN bl adder pain 04/19/25 Unknown History Allergy/AdvReac Type Severity Reaction Status Date / Time No Known Allergies Allergy Verified 04/19/25 03:35 Family History Father Heart disease Myocardial infarction Mother Anxiety and depression Suicide and self-inflicted injury from suicide age 52. Surgical History Presence of stent in coronary artery History of bilateral cataract extraction History of skin surgery S/P colon polypectomy History of cardiac defibrillator placement History of cholecystectomy History of coronary artery stent placement Social History household members: spouse Smoking Status: Former smoker how long ago did patient quit smokin-1.5 ppd from teen until quit in 2008. alcohol intake: never substance use type: does not use caffeine: Yes seatbelt use: always do you feel safe at home: Yes additional social history: - Song FUENTES Constitutional Constitutional: Reports fatigue and weakness; Denies chills or fever(s) Eyes Eyes: Denies change in vision Cardiovascular Cardiovascular: Denies chest pain Respiratory/Chest Respiratory/Chest: Denies shortness of breath at rest Gastrointestinal Gastrointestinal: Denies abdominal pain Genitourinary Genitourinary: Denies dysuria Musculoskeletal Musculoskeletal: Denies arthralgias or myalgias Neurologic Neurologic: Denies dizziness, focal weakness or headache(s) Vital Signs Vital Signs Vital Signs: 04/19/25 03:35 04/19/25 03:35 04/19/25 03:40 Temperature 98.4 F 98.4 F Temperature Source Oral Oral Pulse Rate 77 79 Respiratory Rate 21 H 20 H Respiratory Effort Normal Respiratory Pattern Normal Blood Pressure 163/97 H 163/97 H Blood Pressure Mean 119 119 Pulse Ox 98 98 Oxygen Delivery Method Room Air Room Air 04/19/25 04:40 04/19/25 05:00 04/19/25 06:00 Temperature 98.4 F 98.4 F Temperature Source Oral Oral Pulse Rate 70 69 70 Respiratory Rate 22 H 19 H 16 Respiratory Effort Respiratory Pattern Blood Pressure 139/60 H 151/76 H 133/111 H Blood Pressure Mean 86 101 118 Pulse Ox 98 97 98 Oxygen Delivery Method Room Air Room Air Room Air 04/19/25 07:00 04/19/25 08:00 04/19/25 09:00 Temperature Temperature Source Pulse Rate 66 78 78 Respiratory Rate 18 18 18 Respiratory Effort Respiratory Pattern Blood Pressure 123/61 H 193/91 H 189/86 H Blood Pressure Mean 81 125 120 Pulse Ox 96 96 96 Oxygen Delivery Method Room Air Room Air Room Air 04/19/25 10:00 04/19/25 11:00 Temperature Temperature Source Pulse Rate 77 77 Respiratory Rate 18 18 Respiratory Effort Respiratory Pattern Blood Pressure 180/78 H 178/76 H Blood Pressure Mean 112 110 Pulse Ox 96 96 Oxygen Delivery Method Room Air Room Air Weight Weight: 64.4 kg Body Mass Index (BMI) 21.6 Physical Exam Const alert, oriented x3, no apparent distress and average body habitus Constitutional Narrative: Elderly female, moderately fatigued and weak appearing, otherwise sitting back comfortably in bed, conversing normally, in no acute distress. General Appearance: cooperative and comfortable HEENT normocephalic, head/scalp atraumatic, hearing grossly normal bilaterally, nasal mucous membranes and turbinates normal and moist oral mucous membranes Eyes PERRL, EOMs intact bilaterally and conjunctivae normal Neck full ROM Chest inspection of chest normal Resp normal respiratory effort, normal air movement, no use of accessory muscles and clear to auscultation bilaterally Cardio regular rate, regular rhythm, no murmurs and peripheral pulses 2+ throughout GI normal to inspection, nondistended, normoactive bowel sounds, soft to palpation,non-tender and non-distended Back/Spine normal ROM Extremity normal to inspection and no pedal edema Skin no rashes or lesions noted Neuro oriented x3, moves all extremities and no focal motor deficits Neuro Narrative: Generalized weakness noted. Speech: speech normal Psych mental status grossly normal Results Lab / Micro Data 04/19/25 03:45 04/19/25 03:45 Labs: Laboratory Results - last 24 hr 04/19/25 03:45: WBC 8.7, RBC 3.32 L, Hgb 10.4 L, Hct 30.8 L, MCV 92.8, MCH 31.3,MCHC 33.8, RDW Std Deviation 44.9 H, RDW Coeff of Edita 13.3, Plt Count 189, MPV 10.8, Immature Gran % (Auto) 0.300, Neut% (Auto) 78.3 H, Lymph % (Auto) 10.4 L,[place] % (Auto) 8.2, Eos % (Auto) 2.5, Baso % (Auto) 0.3, Absolute Neuts (auto) 6.8, Absolute Lymphs (auto) 0.90, Nucleated RBC % 0, Sodium 135, Potassium 4.4, Chloride 99, Carbon Dioxide 25.9, Anion Gap 10, BUN 20 H, Creatinine 1.02, EstimCreat Clear Calc 50.29, Est GFR (MDRD) Non-Af 58 L, BUN/Creatinine Ratio 19.3, Glucose 229 H, Calcium 9.0, Magnesium 1.6, TSH 4.050 04/19/25 04:13: Urine Color Yellow, Urine Clarity Clear, Urine pH 6.5, Ur Specific [place] 1.010, Urine Protein 15 H, Urine Glucose (UA) 100 H, Urine Ketones Negative, Urine Occult Blood Negative, Urine Nitrite Negative, Urine Bilirubin Negative, Urine Urobilinogen Normal, Ur Leukocyte Esterase Negative, Urine RBC 0 SEEN, Urine WBC 0 SEEN, Ur Squamous Epith Cells 0 SEEN, Urine Bacteria 0 SEEN, Urine Mucus 0 SEEN Assessment & Plan Assessment/Plan (1) Generalized weakness: PLAN: Plan Patient is a 70-year-old female who presented to [facility] ED on 04/19/2025 with worsening weakness. 1. Acute on chronic debility ? Admit under observation status to [facility]. PT/OT/case management consulted. Patient with chronic debility at baseline, requires walker for ambulation. Has had worsening generalized weakness over the past several weeks. No abnormalities on admit. No focal weakness noted. Suspect primarily worsening weakness in setting of deconditioning. Appreciate therapy recommendations. Will likely need SNF placement on discharge. Chronic medical conditions: ? Type 2 diabetes mellitus: Hold home metformin. Will treat with sliding scale insulin with meals while inpatient, adjust as needed. ? History of CAD with stenting, history of heart failure s/p ICD placement with recovered ejection fraction, history of heart block s/p pacemaker placement, history of CVA, hypertension, hyperlipidemia: Hypertensive to the 150s to 160s on admit but otherwise stable. Last echo in 09/14 showed EF 55%. Continue homeaspirin, Plavix, statin, and Toprol. ? Mild chronic iron deficiency anemia: Hemoglobin stable at baseline around 10 on admit. Continue home iron supplement. ? Anxiety/depression: Stable. Continue home escitalopram, lamotrigine and diazepam at night as needed. ? Muscle spasms: Continue home baclofen. ? GERD: Continue home PPI. ? Chronic constipation, history of ischemic colitis: Follows with outpatient GI. On Linzess and MiraLAX at home. Unfortunately not able to take Linzess while here. Will treat with scheduled MiraLAX and senna while inpatient. DVT prophylaxis: Lovenox CODE STATUS: Full code, verified Expected disposition: Likely SNF, 1 to 2 days Total clinical time spent by myself addressing the patient's medical issues, reviewing all the data, and collaborating with patient's care team: 55 minutes. Charges/Coding Visit Charges Inpatient E&M: 79962 Init Hosp L2 04/19/25 1436 Cosigner Signature (if applicable): CC: Dr. Maximo Orosco DO; Marci Lopez DO~ Signed [facility]05-29-2025 Discharge summary Author Romeo Padron [facility] Note Date/Time April 19, 2025 11:06 [facility] Medical Records Department [address] [place] [address] Emergency Department Summary 04/19/25 MR#: [id number] Acct: [id number] Name: MANSI CARO Rep #:[id number] 18 : 1955 70 From: Romeo Padron DO PCP: Marci Lopez DO Status:REG E R Location: ED ADDENDUM by Dr. Bossman Sanders DO on 04/19/25 at 1106 Patient care turned over to ga awaiting evaluation by social services aide for placement to [facility] facility. Patient was evaluated by social services aide and it was recommended that patient be admitted for precertification and admission to [facility] facility. Will discuss case with hospitalist to evaluate patient for admission. 04/19/25 1106<Electronically signed by Bossman Sanders DO> Cosigner Signature (if applicable): cc: Marci Lopez DO ~* Signed HPI History of Present Illness Chief Complaint: Weakness Informant: patient and spouse/S.O. Narrative Narrative: Patient is a 70-year-old female with past medical history of ischemic colitis hyperlipidemia hypertension and previous CVA. The patient typically walks with a walker at baseline. states that she has not been eating or drinking well for multiple weeks. This evening/morning the patient was too weak to get out of bed on her own. She typically uses a walker to ambulate and even at homewith the help of the walker she was too weak to support herself. The patient and state that there has been no changes to her home medication that shehas been taking them as directed. The patient denies any fevers or chills but does states she has had irritation with urination which makes her concerned for a UTI. Therefore at this time with her increasing generalized weakness and her inability to ambulate on her own at her baseline and concern for developing infection she was brought in for evaluation [facility] Medical History Ischemic colitis History of left heart catheterization History of mechanical ventilation Cardiogenic pulmonary edema Acute hypoxic respiratory failure Multiple lung nodules Major depressive disorder Left bundle branch block NSTEMI (non-ST elevated myocardial infarction) GERD (gastroesophageal reflux disease) Diabetic peripheral vascular disease Diabetic nephropathy Chronic kidney disease (CKD) Bleeding ulcer Anxiety Dyslipidemia Chronic systolic heart failure Pacemaker Congestive heart failure (CHF) Cerebral palsy Anxiety and depression Heart failure with reduced ejection fraction Insomnia Transient ischemic attack AV node dysfunction Ischemic cardiomyopathy Presence of biventricular implantable cardioverter-defibrillator Ulcer Restless legs High cholesterol Former smoker ICD (implantable cardioverter-defibrillator) in place Coronary artery disease CVA (cerebral vascular accident) PFO (patent foramen ovale) Cardiac resynchronization therapy defibrillator (HEAD BELLHOP CAPTAIN-D) in place Myocarditis Hyperlipidemia Hypertension Home Medications ?Medication ?Instructions ?Recorded ?Last Taken ?Type clonazepam 1 mg tablet 1 mg PO QHS anxiety 11/18/14 07/02/24 History trazodone 50 mg tablet 50 mg PO DAILY Anxiety 11/1807/02/24 History cholecalciferol (vitamin D3) 25 50 mcg (2 x 25 mcg (1, 000 unit)) 09/30/23 07/02/24 Rx mcg (1,000 unit) tablet PO QHS supplement #0 tabs aspirin 81 mg tablet,delayed 81 mg PO .COMPLEX heart 1 12/01/22 07/02/24 History release rosuvastatin 20 mg tablet 20 mg PO QHS cholesterol 12/1507/02/24 History clopidogrel 75 mg tablet 75 mg PO DAILY #0 tabs 03/1307/02/24 Rx acetaminophen 500 mg tablet 500 mg PO Q6H PRN PRN Pain Score 06/13/24 07/01/24 History 1-10 docusate sodium 100 mg capsule 100 mg PO DAILY PRN con stipation 06/13/24 07/02/24 History furosemide 20 mg tablet 20 mg PO QDAY PRN for 2lb we ight 06/13/24 06/19/24 History gain pantoprazole 40 mg tablet,delayed 40 mg PO DAILY 07/17 Unknown History release baclofen 5 mg tablet 5 mg PO QDAY muscle spasms 0 08/03/24 Unknown History albuterol sulfate 90 mcg/actuation 1 puff inhalation Q 6H PRN 09/09/24 Unknown Rx aerosol inhaler shortness of breath or wheez ing #8.5 grams escitalopram oxalate 5 mg tablet 5 mg PO QDAY 11/28/24 Unknown History polyethylene glycol 3350 17 17 g PO BID 11/28/24 Unkno wn History gram/dose oral powder (Miralax) linaclotide 72 mcg capsule 72 mcg PO QAM #90 caps 11/23 12/16 Unknown Rx (Linzess) metformin 500 mg tablet 500 mg PO QDAY 01/18/25 Unkn own History metoprolol succinate 25 mg 25 mg PO QDAY 01/18/25 Unkn own History tablet,extended release 24 hr (Toprol XL) lamotrigine 100 mg tablet 100 mg PO QDAY 01/23/25 Unkn own History polyethylene glycol 400 0.25 % eye drp ophthalmic (eye ) 01/23/25 Unknown History gel drops (Blink Gel Tears) ferrous sulfate 325 mg (65 mg 325 mg PO QDAY 02/13/25 Unknown History iron) tablet (Feosol) linaclotide 145 mcg capsule 145 mcg PO QAM #60 caps Unknown Rx (Linzess) hyoscyamine sulfate 0.125 mg tablet 0.125 mg PO TID ND N dyspepsia #90 03/05/25 Unknown Rx tabs oxycodone-acetaminophen 5 mg-325 1 tab PO Q6H PRN PRN severe pain 04/19/25 Unknown History mg tablet Allergy/AdvReac Type Severity Reaction Status Date / Time No Known Allergies Allergy Verified 04/19/25 03:35 Family History Father Heart disease Myocardial infarction Mother Anxiety and depression Suicide and self-inflicted injury from suicide age 52. Surgical History Presence of stent in coronary artery History of bilateral cataract extraction History of skin surgery S/P colon polypectomy History of cardiac defibrillator placement History of cholecystectomy History of coronary artery stent placement Social History household members: spouse Smoking Status: Former smoker how long ago did patient quit smokin-1.5 ppd from teen until quit in 2008. alcohol intake: never substance use type: does not use caffeine: Yes seatbelt use: always do you feel safe at home: Yes additional social history: - Song FUENTES ROS ED Constitutional Constitutional ED: Denies chills or fever(s) Eyes Eyes: Denies change in vision ENT ENT ED: Denies sore throat Cardiovascular Cardiovascular: Denies chest pain Respiratory/Chest Respiratory/Chest: Denies cough or dyspnea Gastrointestinal Gastrointestinal: Denies abdominal pain, diarrhea, nausea or vomiting Genitourinary Genitourinary ED: Reports dysuria Musculoskeletal Musculoskeletal: Denies myalgias Integumentary Denies rash Neurologic Neurologic: Reports weakness; Denies headache(s) Hematologic/Lymphatic Hematologic/Lymphatic: Denies easy bleeding or easy bruising EXAM Physical Exam Const Vital Signs: 04/19/25 03:35 04/19/25 03:35 04/19/25 03:40 Temperature 98.4 F 98.4 F Temperature Source Oral Oral Pulse Rate 77 79 Respiratory Rate 21 H 20 H Respiratory Effort Normal Respiratory Pattern Normal Blood Pressure 163/97 H 163/97 H Blood Pressure Mean 119 119 Pulse Ox 98 98 Oxygen Delivery Method Room Air Room Air 04/19/25 04:40 04/19/25 05:00 04/19/25 06:00 Temperature 98.4 F 98.4 F Temperature Source Oral Oral Pulse Rate 70 69 70 Respiratory Rate 22 H 19 H 16 Respiratory Effort Respiratory Pattern Blood Pressure 139/60 H 151/76 H 133/111 H Blood Pressure Mean 86 101 118 Pulse Ox 98 97 98 Oxygen Delivery Method Room Air Room Air Room Air Positive well nourished and well developed General Appearance ED: well developed; Negative for pallor HEENT Reports dry mucous membranes HEENT Narrative: Normocephalic atraumatic No tongue or lip swelling no oral lesions no airway edema or compromise; no secondary findings in the posterior pharynx to suggest infection Mucous membranes are dry and tacky consistent with concern for dehydration Mouth ED: Yes dry mucous membranes Mouth: dry mucous membranes Eyes PERRL and EOMs intact bilaterally General Eye ED: Negative for scleral icterus Neck supple Neck Narrative: No nuchal rigidity or meningeal signs noted Resp normal respiratory effort and clear to auscultation bilaterally Resp Narrative: Breath sounds are slightly diminished throughout but overall clear to auscultation without signs of respiratory distress Cardio regular rate and regular rhythm Rate: other Other Details: Radial and carotid pulses are equal and symmetric GI normal to inspection, nondistended, normoactive bowel sounds, non-tender, non-distended and no masses GI Narrative: Abdomen is soft nontender and nondistended with normal active bowel sounds No voluntary guarding or rigidity or pulsatile mass Auscultation: normoactive bowel sounds Palpation: soft Extremity normal to inspection Extremity Narrative: No asymmetric edema no pitting edema negative Homans' sign bilaterally No bony deformity or joint effusion noted No signs of long bone injury Neuro oriented x3 and CN's II-XII intact bilaterally Neuro Narrative: Patient is awake and alert and oriented person place and time at her baseline mental status per There is diffuse/generalized weakness without focal deficit NIH stroke scale score of 0 Sensorium / Orientation: alert Motor Exam: general weakness Psych Psych Narrative: Patient has a flat affect Skin no rashes or lesions noted and No skin turgor normal Skin Narrative: Skin turgor is increased consistent with report of poor oral intake and physicalexam concerning for dehydration However no secondary skin changes to suggest trauma or infection General Skin Exam: Negative for jaundice or pallor MDM MDM MDM Narrative Medical decision making narrative: Patient presented to the ER slightly hypertensive but has a past medical historyof this and otherwise with stable vitals. She reported increasing generalized weakness to the point where she was having difficulty supporting her own body weight and ambulating. Her physical exam shows changes consistent with dehydration. With concern that her weakness is from acute kidney injury electrolyte abnormality thyroid dysfunction UTI or potential acute on chronic blood loss anemia basic laboratory studies were obtained. As her weakness is diffuse and not focal this does not correlate with an acute CVA so I felt no need for a stroke alert or CT of the head. Blood work revealed no clinically significant findings and urine sample revealed no sign of infection. Patient received 1 L of IV fluid and after this did report feeling slightly better and therefore we attempted to ambulate the patient with a walker as she uses at home. The patient was able to ambulate but cannot get out of bed on her own. And once up gait was slightly unsteady requiring 1 hand stabilization by nursingstaff and patient also had to stop multiple times secondary to fatigue and feeling unsteady. At this time the patient does not have grounds for admission based on infection such as UTI/urosepsis or acute kidney injury acute blood lossanemia or electrolyte abnormality. There is also no need for admission secondary to acute CVA as her symptoms are nonfocal and generalized and do not correlate with stroke. The patient states that despite the workup in the ER andIV fluids she still feels too weak to go home and is agreeable to chcf/rehab placement. As it is a weekday and morning hours the patient will be evaluated by physical therapy/Occupational Therapy in the ER and social work will be consulted as well. There is hopes that the patient will be able to be sent directly from the ER to a chcf/rehab center. The patient and family were informed of the plan of care and they are agreeable to it. They also understand that if placement cannot be obtained today that because of her persistent weakness she would then require general admission to the hospital. History & Record Review Discussion w/independent historian: Patient and Significant other Lab Data Attestation: I reviewed the patient's lab results. Labs: Laboratory Results - last 24 hr 04/19/25 04/19/25 03:45 04:13 WBC 8.7 RBC 3.32 L Hgb 10.4 L Hct 30.8 L MCV 92.8 MCH 31.3 MCHC 33.8 RDW Std Deviation 44.9 H RDW Coeff of Edita 13.3 Plt Count 189 MPV 10.8 Immature Gran % (Auto) 0.300 Neut % (Auto) 78.3 H Lymph % (Auto) 10.4 L [place] % (Auto) 8.2 Eos % (Auto) 2.5 Baso % (Auto) 0.3 Absolute Neuts (auto) 6.8 Absolute Lymphs (auto) 0.90 Nucleated RBC % 0 Sodium 135 Potassium 4.4 Chloride 99 Carbon Dioxide 25.9 Anion Gap 10 BUN 20 H Creatinine 1.02 Estim Creat Clear Calc 50.29 Est GFR (MDRD) Non-Af 58 L BUN/Creatinine Ratio 19.3 Glucose 229 H Calcium 9.0 Magnesium 1.6 TSH 4.050 Urine Color Yellow Urine Clarity Clear Urine pH 6.5 Ur Specific [place] 1.010 Urine Protein 15 H Urine Glucose (UA) 100 H Urine Ketones Negative Urine Occult Blood Negative Urine Nitrite Negative Urine Bilirubin Negative Urine Urobilinogen Normal Ur Leukocyte Esterase Negative Urine RBC 0 SEEN Urine WBC 0 SEEN Ur Squamous Epith Cells 0 SEEN Urine Bacteria 0 SEEN Urine Mucus 0 SEEN Management Discussion w/another healthcare provider: 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 management Discharge Plan Triage Chief Complaint: Weakness ED Provider: Romeo Padron Dx/Rx/DC Orders Clinical Impression: Generalized weakness, Ischemic colitis, Dehydration, Chronic anemia, HTN (hypertension) Prescriptions: No Action furosemide 20 mg tablet 20 mg PO QDAY PRN (Reason: for 2lb weight gain) acetaminophen 500 mg tablet 500 mg PO Q6H PRN PRN (Reason: Pain Score 1-10) docusate sodium 100 mg capsule 100 mg PO DAILY PRN (Reason: constipation) pantoprazole 40 mg tablet,delayed release (DR/EC) 40 mg PO DAILY metformin 500 mg tablet 500 mg PO QDAY metoprolol succinate [Toprol XL] 25 mg tablet extended release 24 hr 25 mg PO QDAY Blink Gel Tears 0.25 % drops,gel ophthalmic (eye) lamotrigine 100 mg tablet 100 mg PO QDAY escitalopram oxalate 5 mg tablet 5 mg PO QDAY polyethylene glycol 3350 [Miralax] 17 gram/dose powder 17 g PO BID Linzess 72 mcg capsule 72 mcg PO QAM Qty: 90 1RF ferrous sulfate [Feosol] 325 mg (65 mg iron) tablet 325 mg PO QDAY Linzess 145 mcg capsule 145 mcg PO QAM Qty: 60 2RF trazodone 50 MG tablet 50 mg PO DAILY clonazepam 1 MG tablet 1 mg PO QHS cholecalciferol (vitamin D3) 25 mcg (1,000 unit) Tablet 50 mcg PO QHS Qty: 0 0RF aspirin 81 mg tablet,delayed release (DR/EC) 81 mg PO .COMPLEX Rx Instructions: 81 mg orally EVERY OTHER DAY; rosuvastatin 20 mg tablet 20 mg PO QHS baclofen 5 mg tablet 5 mg PO QDAY Patient Comments: PLEASE SEE ATTACHED FOR DETAILED DIRECTIONS clopidogrel 75 mg Tablet 75 mg PO DAILY Qty: 0 0RF albuterol sulfate 90 mcg/actuation HFA aerosol inhaler 1 puff inhalation Q6H PRN (Reason: shortness of breath or wheezing) Qty: 8.5 0RF oxycodone-acetaminophen 5-325 mg tablet 1 tab PO Q6H PRN PRN (Reason: severe pain) hyoscyamine sulfate 0.125 mg tablet 0.125 mg PO TID PRN (Reason: dyspepsia) Qty: 90 2RF Primary Care Provider: Marci Lopez Referrals: Marci Lopez DO [Primary Care Provider] - Print Language: Martiniquais What to do if you have Problems For any increased pain, shortness of breath, bleeding, nausea or vomiting, chestpain, or any unexpected problems, contact your Primary Care Provider. Call [facility] ([phone]) or report to the closest Emergency Room. Call 911 if necessary. 04/19/25 5341 <Electronically signed by Romeo Padron DO> Cosigner Signature (if applicable): CC: Marci Lopez DO ~ Signed [facility] Work Phone: [phone] Discharge [address] [facility] Medical Records Department [address] [place] [address] Emergency Department Summary 04/19/25 MR#: [id number] Acct: [id number] Name: MANSI CARO Rep #:[id number] 18 : 1955 70 From: Romeo Padron DO PCP: Marci Lopez DO Status:REG E R Location: ED ADDENDUM by Dr. Bossman Sanders DO on 04/19/25 at 1106 Patient care turned over to [facility] awaiting evaluation by social services aide for placement to [facility] facility. Patient was evaluated by social services aide and it was recommended that patient be admitted for precertification and admission to [facility] facility. Will discuss case with hospitalist to evaluate patient for admission. 04/19/25 1106 Cosigner Signature (if applicable): cc: Marci Lopez DO ~* Signed HPI History of Present Illness Chief Complaint: Weakness Informant: patient and spouse/S.O. Narrative Narrative: Patient is a 70-year-old female with past medical history of ischemic colitis hyperlipidemia hypertension and previous CVA. The patient typically walks with a walker at baseline. states that she has not been eating or drinking well for multiple weeks. This evening/morning the patient was too weak to get out of bed on her own. She typically uses a walker to ambulate and even at homewith the help of the walker she was too weak to support herself. The patient and state that there has been no changes to her home medication that shehas been taking them as directed. The patient denies any fevers or chills but does states she has had irritation with urination which makes her concerned for a UTI. Therefore at this time with her increasing generalized weakness and her inability to ambulate on her own at her baseline and concern for developing infection she was brought in for evaluation [facility] Medical History Ischemic colitis History of left heart catheterization History of mechanical ventilation Cardiogenic pulmonary edema Acute hypoxic respiratory failure Multiple lung nodules Major depressive disorder Left bundle branch block NSTEMI (non-ST elevated myocardial infarction) GERD (gastroesophageal reflux disease) Diabetic peripheral vascular disease Diabetic nephropathy Chronic kidney disease (CKD) Bleeding ulcer Anxiety Dyslipidemia Chronic systolic heart failure Pacemaker Congestive heart failure (CHF) Cerebral palsy Anxiety and depression Heart failure with reduced ejection fraction Insomnia Transient ischemic attack AV node dysfunction Ischemic cardiomyopathy Presence of biventricular implantable cardioverter-defibrillator Ulcer Restless legs High cholesterol Former smoker ICD (implantable cardioverter-defibrillator) in place Coronary artery disease CVA (cerebral vascular accident) PFO (patent foramen ovale) Cardiac resynchronization therapy defibrillator (HEAD BELLHOP CAPTAIN-D) in place Myocarditis Hyperlipidemia Hypertension Home Medications ?Medication ?Instructions ?Recorded ?Last Taken ?Type clonazepam 1 mg tablet 1 mg PO QHS anxiety 11/18/14 07/02/24 History trazodone 50 mg tablet 50 mg PO DAILY Anxiety 11/1807/02/24 History cholecalciferol (vitamin D3) 25 50 mcg (2 x 25 mcg (1, 000 unit)) 09/30/23 07/02/24 Rx mcg (1,000 unit) tablet PO QHS supplement #0 tabs aspirin 81 mg tablet,delayed 81 mg PO .COMPLEX heart 1 12/01/22 07/02/24 History release rosuvastatin 20 mg tablet 20 mg PO QHS cholesterol 12/1507/02/24 History clopidogrel 75 mg tablet 75 mg PO DAILY #0 tabs 03/1307/02/24 Rx acetaminophen 500 mg tablet 500 mg PO Q6H PRN PRN Pain Score 06/13/24 07/01/24 History 1-10 docusate sodium 100 mg capsule 100 mg PO DAILY PRN con stipation 06/13/24 07/02/24 History furosemide 20 mg tablet 20 mg PO QDAY PRN for 2lb we ight 06/13/24 06/19/24 History gain pantoprazole 40 mg tablet,delayed 40 mg PO DAILY 07/17 Unknown History release baclofen 5 mg tablet 5 mg PO QDAY muscle spasms 0 08/03/24 Unknown History albuterol sulfate 90 mcg/actuation 1 puff inhalation Q 6H PRN 09/09/24 Unknown Rx aerosol inhaler shortness of breath or wheez ing #8.5 grams escitalopram oxalate 5 mg tablet 5 mg PO QDAY 11/28/24 Unknown History polyethylene glycol 3350 17 17 g PO BID 11/28/24 Unkno wn History gram/dose oral powder (Miralax) linaclotide 72 mcg capsule 72 mcg PO QAM #90 caps 11/23 12/16 Unknown Rx (Linzess) metformin 500 mg tablet 500 mg PO QDAY 01/18/25 Unkn own History metoprolol succinate 25 mg 25 mg PO QDAY 01/18/25 Unkn own History tablet,extended release 24 hr (Toprol XL) lamotrigine 100 mg tablet 100 mg PO QDAY 01/23/25 Unkn own History polyethylene glycol 400 0.25 % eye drp ophthalmic (eye ) 01/23/25 Unknown History gel drops (Blink Gel Tears) ferrous sulfate 325 mg (65 mg 325 mg PO QDAY 02/13/25 Unknown History iron) tablet (Feosol) linaclotide 145 mcg capsule 145 mcg PO QAM #60 caps Unknown Rx (Linzess) hyoscyamine sulfate 0.125 mg tablet 0.125 mg PO TID ND N dyspepsia #90 03/05/25 Unknown Rx tabs oxycodone-acetaminophen 5 mg-325 1 tab PO Q6H PRN PRN severe pain 04/19/25 Unknown History mg tablet Allergy/AdvReac Type Severity Reaction Status Date / Time No Known Allergies Allergy Verified 04/19/25 03:35 Family History Father Heart disease Myocardial infarction Mother Anxiety and depression Suicide and self-inflicted injury from suicide age 52. Surgical History Presence of stent in coronary artery History of bilateral cataract extraction History of skin surgery S/P colon polypectomy History of cardiac defibrillator placement History of cholecystectomy History of coronary artery stent placement Social History household members: spouse Smoking Status: Former smoker how long ago did patient quit smokin-1.5 ppd from teen until quit in 2008. alcohol intake: never substance use type: does not use caffeine: Yes seatbelt use: always do you feel safe at home: Yes additional social history: - Song ROS ROS ED Constitutional Constitutional ED: Denies chills or fever(s) Eyes Eyes: Denies change in vision ENT ENT ED: Denies sore throat Cardiovascular Cardiovascular: Denies chest pain Respiratory/Chest Respiratory/Chest: Denies cough or dyspnea Gastrointestinal Gastrointestinal: Denies abdominal pain, diarrhea, nausea or vomiting Genitourinary Genitourinary ED: Reports dysuria Musculoskeletal Musculoskeletal: Denies myalgias Integumentary Denies rash Neurologic Neurologic: Reports weakness; Denies headache(s) Hematologic/Lymphatic Hematologic/Lymphatic: Denies easy bleeding or easy bruising EXAM Physical Exam Const Vital Signs: 04/19/25 03:35 04/19/25 03:35 04/19/25 03:40 Temperature 98.4 F 98.4 F Temperature Source Oral Oral Pulse Rate 77 79 Respiratory Rate 21 H 20 H Respiratory Effort Normal Respiratory Pattern Normal Blood Pressure 163/97 H 163/97 H Blood Pressure Mean 119 119 Pulse Ox 98 98 Oxygen Delivery Method Room Air Room Air 04/19/25 04:40 04/19/25 05:00 04/19/25 06:00 Temperature 98.4 F 98.4 F Temperature Source Oral Oral Pulse Rate 70 69 70 Respiratory Rate 22 H 19 H 16 Respiratory Effort Respiratory Pattern Blood Pressure 139/60 H 151/76 H 133/111 H Blood Pressure Mean 86 101 118 Pulse Ox 98 97 98 Oxygen Delivery Method Room Air Room Air Room Air Positive well nourished and well developed General Appearance ED: well developed; Negative for pallor HEENT Reports dry mucous membranes HEENT Narrative: Normocephalic atraumatic No tongue or lip swelling no oral lesions no airway edema or compromise; no secondary findings in the posterior pharynx to suggest infection Mucous membranes are dry and tacky consistent with concern for dehydration Mouth ED: Yes dry mucous membranes Mouth: dry mucous membranes Eyes PERRL and EOMs intact bilaterally General Eye ED: Negative for scleral icterus Neck supple Neck Narrative: No nuchal rigidity or meningeal signs noted Resp normal respiratory effort and clear to auscultation bilaterally Resp Narrative: Breath sounds are slightly diminished throughout but overall clear to auscultation without signs ofrespiratory distress Cardio regular rate and regular rhythm Rate: other Other Details: Radial and carotid pulses are equal and symmetric GI normal to inspection, nondistended, normoactive bowel sounds, non-tender, non- distended and no masses GI Narrative: Abdomen is soft nontender and nondistended with normal active bowel sounds No voluntary guarding or rigidity or pulsatile mass Auscultation: normoactive bowel sounds Palpation: soft Extremity normal to inspection Extremity Narrative: No asymmetric edema no pitting edema negative Homans' sign bilaterally No bony deformity or joint effusion noted No signs of long bone injury Neuro oriented x3 and CN's II-XII intact bilaterally Neuro Narrative: Patient is awake and alert and oriented person place and time at her baseline mental status per There is diffuse/generalized weakness without focal deficit NIH stroke scale score of 0 Sensorium / Orientation: alert Motor Exam: general weakness Psych Psych Narrative: Patient has a flat affect Skin no rashes or lesions noted and No skin turgor normal Skin Narrative: Skin turgor is increased consistent with report of poor oral intake and physicalexam concerning fordehydration However no secondary skin changes to suggest trauma or infection General Skin Exam: Negative for jaundice or pallor MDM MDM MDM Narrative Medical decision making narrative: Patient presented to the ER slightly hypertensive but has a past medical historyof this and otherwise with stable vitals. She reported increasing generalized weakness to the point where she was having difficulty supporting her own body weight and ambulating. Her physical exam shows changes consistent with dehydration. With concern that her weakness is from acute kidney injury electrolyte abnormality thyroid dysfunction UTI or potential acute on chronic blood loss anemia basic laboratory studieswere obtained. As her weakness is diffuse and not focal this does not correlate with an acute CVA so I felt no need for a stroke alert or CT of the head. Blood work revealed no clinically significantfindings and urine sample revealed no sign of infection. Patient received 1 L of IV fluid and afterthis did report feeling slightly better and therefore we attempted to ambulate the patient with a walker as she uses at home. The patient was able to ambulate but cannot get out of bed on her own. And once up gait was slightly unsteady requiring 1 hand stabilization by nursingstaff and patient alsohad to stop multiple times secondary to fatigue and feeling unsteady. At this time the patient doesnot have grounds for admission based on infection such as UTI/urosepsis or acute kidney injury acute blood lossanemia or electrolyte abnormality. There is also no need for admission secondary to acute CVA as her symptoms are nonfocal and generalized and do not correlate with stroke. The patient states that despite the workup in the ER andIV fluids she still feels too weak to go home and is agreeable to chcf/rehab placement. As it is a weekday and morning hours the patient will be evaluated by physical therapy/Occupational Therapy in the ER and social work will be consulted as well. There is hopes that the patient will be able to be sent directly from the ER to a chcf/rehab center. The patient and family were informed of the plan of care and they are agreeable to it. They also understand that if placement cannot be obtained today that because of her persistent weakness she would then require general admission to the hospital. History & Record Review Discussion w/independent historian: Patient and Significant other Lab Data Attestation: I reviewed the patient's lab results. Labs: Laboratory Results - last 24 hr 04/19/25 04/19/25 03:45 04:13 WBC 8.7 RBC 3.32 L Hgb 10.4 L Hct 30.8 L MCV 92.8 MCH 31.3 MCHC 33.8 RDW Std Deviation 44.9 H RDW Coeff of Edita 13.3 Plt Count 189 MPV 10.8 Immature Gran % (Auto) 0.300 Neut % (Auto) 78.3 H Lymph % (Auto) 10.4 L [place] % (Auto) 8.2 Eos % (Auto) 2.5 Baso % (Auto) 0.3 Absolute Neuts (auto) 6.8 Absolute Lymphs (auto) 0.90 Nucleated RBC % 0 Sodium 135 Potassium 4.4 Chloride 99 Carbon Dioxide 25.9 Anion Gap 10 BUN 20 H Creatinine 1.02 Estim Creat Clear Calc 50.29 Est GFR (MDRD) Non-Af 58 L BUN/Creatinine Ratio 19.3 Glucose 229 H Calcium 9.0 Magnesium 1.6 TSH 4.050 Urine Color Yellow Urine Clarity Clear Urine pH 6.5 Ur Specific [place] 1.010 Urine Protein 15 H Urine Glucose (UA) 100 H Urine Ketones Negative Urine Occult Blood Negative Urine Nitrite Negative Urine Bilirubin Negative Urine Urobilinogen Normal Ur Leukocyte Esterase Negative Urine RBC 0 SEEN Urine WBC 0 SEEN Ur Squamous Epith Cells 0 SEEN Urine Bacteria 0 SEEN Urine Mucus 0 SEEN Management Discussion w/another healthcare provider: 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 management Discharge Plan Triage Chief Complaint: Weakness ED Provider: Romeo Padron Dx/Rx/DC Orders Clinical Impression: Generalized weakness, Ischemic colitis, Dehydration, Chronic anemia, HTN (hypertension) Prescriptions: No Action furosemide 20 mg tablet 20 mg PO QDAY PRN (Reason: for 2lb weight gain) acetaminophen 500 mg tablet 500 mg PO Q6H PRN PRN (Reason: Pain Score 1-10) docusate sodium 100 mg capsule 100 mg PO DAILY PRN (Reason: constipation) pantoprazole 40 mg tablet,delayed release (DR/EC) 40 mg PO DAILY metformin 500 mg tablet 500 mg PO QDAY metoprolol succinate [Toprol XL] 25 mg tablet extended release 24 hr 25 mg PO QDAY Blink Gel Tears 0.25 % drops,gel ophthalmic (eye) lamotrigine 100 mg tablet 100 mg PO QDAY escitalopram oxalate 5 mg tablet 5 mg PO QDAY polyethylene glycol 3350 [Miralax] 17 gram/dose powder 17 g PO BID Linzess 72 mcg capsule 72 mcg PO QAM Qty: 90 1RF ferrous sulfate [Feosol] 325 mg (65 mg iron) tablet 325 mg PO QDAY Linzess 145 mcg capsule 145 mcg PO QAM Qty: 60 2RF trazodone 50 MG tablet 50 mg PO DAILY clonazepam 1 MG tablet 1 mg PO QHS cholecalciferol (vitamin D3) 25 mcg (1,000 unit) Tablet 50 mcg PO QHS Qty: 0 0RF aspirin 81 mg tablet,delayed release (DR/EC) 81 mg PO .COMPLEX Rx Instructions: 81 mg orally EVERY OTHER DAY; rosuvastatin 20 mg tablet 20 mg PO QHS baclofen 5 mg tablet 5 mg PO QDAY Patient Comments: PLEASE SEE ATTACHED FOR DETAILED DIRECTIONS clopidogrel 75 mg Tablet 75 mg PO DAILY Qty: 0 0RF albuterol sulfate 90 mcg/actuation HFA aerosol inhaler 1 puff inhalation Q6H PRN (Reason: shortness of breath or wheezing) Qty: 8.5 0RF oxycodone-acetaminophen 5-325 mg tablet 1 tab PO Q6H PRN PRN (Reason: severe pain) hyoscyamine sulfate 0.125 mg tablet 0.125 mg PO TID PRN (Reason: dyspepsia) Qty: 90 2RF Primary Care Provider: Marci Lopez Referrals: Marci Lopez, [Primary Care Provider] - Print Language: Martiniquais What to do if you have Problems For any increased pain, shortness of breath, bleeding, nausea or vomiting, chestpain, or any unexpected problems, contact your Primary Care Provider. Call [facility] ([phone]) or report tothe closest Emergency Room. Call 911 if necessary. 04/19/25 0633 Cosigner Signature (if applicable): CC: Marci Marilee JiménezonDO ~ Signed [facility]05-14-2025 History of Present illness Narrative* Rubina Valdovinos CT - 04/04/2025 12:00 PM EDT Radiology Service Progress Note PATIENT NAME: Mansi Caro DATE OF SERVICE: April 04, 2025 TIME: 12:27 PM PATIENT IDENTITY VERIFICATION COMPLETED USING TWO (2) IDENTIFIERS: Name and Date of confirmedby patient verbally and Name and Date of confirmed by identification band. FALL SCREENING: Has the patient had 2 falls in the last year or 1 fall with injury or currently using an Ambulatory Assistive Device (Walker, Cane, Wheelchair, Crutches, etc.)? Yes, Patient High Riskfor Falls What interventions were put in place to prevent falls during this visit? Instructed Patient to Callfor Help if Needed, Offered Assistance with Transfers/Clothing, Instructed Patient to Remain Seated(Not on Exam Table) Until Exam, and Increased Observations by Caregivers PATIENT GENDER DATA: Assigned female at . status: : No status:NO. PATIENT RELEVANT IMPLANT DATA REVIEWED: Yes MR Conditional CIED Dual verification that CIED system is MR conditional: Yes, [employer] Remote programming PATIENT PRESENTS WITH AN IMPLANTABLE OR ATTACHED CARDIOLOGY RN: No RADIOLOGY DEPARTMENT: MR; Exam(s) Completed: Head: Routine Brain. Lavender Administered: No PERIPHERAL IV DATA: Not applicable SIGNED BY: DIONNA Shipman April 04, 2025 12:27 PM documented in this encounterGreene [facility]-14-[facility]25 NoteHNO ID: [id number] Author: RUBINA VALDOVINOS CT Service: Radiology Author Type: Technologist Type: Progress Notes Filed: 04/04/2025 12:28 Note Text: Radiology Service Progress Note PATIENT NAME: Mansi Caro DATE OF SERVICE: April 04, 2025 TIME: 12:27 PM PATIENT IDENTITY VERIFICATION COMPLETED USING TWO (2) IDENTIFIERS: Name and Date of confirmed by patient verbally and Name and Date of confirmed by identification band. FALL SCREENING: Has the patient had 2 falls in the last year or 1 fall with injury or currently using an Ambulatory Assistive Device (Walker, Cane, Wheelchair, Crutches, etc.)? Yes, Patient High Risk for Falls What interventions were put in place to prevent falls during this visit? Instructed Patient to Call for Help if Needed, Offered Assistance with Transfers/Clothing, Instructed Patient to Remain Seated (Not on Exam Table) Until Exam, and Increased Observations by Caregivers PATIENT GENDER DATA: Assigned female at . status: : No status: NO. PATIENT RELEVANT IMPLANT DATA REVIEWED: Yes MR Conditional CIED Dual verification that CIED system is MR conditional: Yes, [employer] Remote programming PATIENT PRESENTS WITH AN IMPLANTABLE OR ATTACHED CARDIOLOGY RN: No RADIOLOGY DEPARTMENT: MR; Exam(s) Completed: Head: Routine Brain. Lavender Administered: No PERIPHERAL IV DATA: Not applicable SIGNED BY: DIONNA Shipman April 04, 2025 12:27 [facility] [id number] Nurse Note* Janine Tompkins RN - 04/04/2025 12:00 PM EDT Radiology Service Progress Note PATIENT NAME: Mansi Caro DATE OF SERVICE: April 04, 2025 TIME: 12:22 PM PATIENT IDENTITY VERIFICATION COMPLETED USING TWO (2) STANDARD IDENTIFIERS: Name and Date of confirmed by patient verbally. FALL RISK: Is the patient currently using an Ambulatory Assistive Device (Walker, Cane, Wheelchair,Crutches, etc.)? PATIENT GENDER DATA: Assigned female at . status: : No status:NO. PATIENT RELEVANT IMPLANT DATA REVIEWED: Yes ALLERGIES: Reviewed and unchanged MEDICATIONS REVIEWED: YES PROCEDURE: MRI - Conditional Pacemaker [employer] Heel Molder Device - Settings: DOO 90 bpm Physiologic monitoring per standard operating procedure. See vital sign flowsheet. PERIPHERAL IV ACCESS: Not applicable PATIENT TOLERATED PROCEDURE: Without incident. PATIENT DISCHARGED TO: Home/Self Care SIGNED BY: TANIA Barnett Patient arrived here today for an MRI. Patients [employer] Pacemaker was placed in MRI safe mode by irrigation technician & device. Vitals remained stable throughout - see flowsheet. MRI was completed and then pacemaker was taken out of MRI safe mode and tolerated well. Patient was discharged home with family. [facility]05-14[facility] Nurse Note* Janine Tompkins RN - 04/04/2025 12:00 PM EDT Radiology Service Progress Note PATIENT NAME: Mansi Caro DATE OF SERVICE: April 04, 2025 TIME: 12:22 PM PATIENT IDENTITY VERIFICATION COMPLETED USING TWO (2) STANDARD IDENTIFIERS: Name and Date of confirmed by patient verbally. FALL RISK: Is the patient currently using an Ambulatory Assistive Device (Walker, Cane, Wheelchair,Crutches, etc.)? PATIENT GENDER DATA: Assigned female at . status: : No status:NO. PATIENT RELEVANT IMPLANT DATA REVIEWED: Yes ALLERGIES: Reviewed and unchanged MEDICATIONS REVIEWED: YES PROCEDURE: MRI - Conditional Pacemaker [employer] Heel Molder Device - Settings: DOO 90 bpm Physiologic monitoring per standard operating procedure. See vital sign flowsheet. PERIPHERAL IV ACCESS: Not applicable PATIENT TOLERATED PROCEDURE: Without incident. PATIENT DISCHARGED TO: Home/Self Care SIGNED BY: TANIA Barnett Patient arrived here today for an MRI. Patients [employer] Pacemaker was placed in MRI safe mode by irrigation technician & device. Vitals remained stable throughout - see flowsheet. MRI was completed and then pacemaker was taken out of MRI safe mode and tolerated well. Patient was discharged home with family. documented in this encounterGreene [facility]05-12-[facility]25 History of Present illness Narrative* Jelly Sanchez Tech - 04/02/2025 9:00 AM EDT Radiology Service Progress Note PATIENT NAME: Mansi Caro DATE OF SERVICE: April 02, 2025 TIME: 9:34 AM PATIENT IDENTITY VERIFICATION COMPLETED USING TWO (2) IDENTIFIERS: Name and Date of confirmedby patient verbally. FALL SCREENING: Has the patient had 2 falls in the last year or 1 fall with injury or currently using an Ambulatory Assistive Device (Walker, Cane, Wheelchair, Crutches, etc.)? No PATIENT GENDER DATA: Assigned female at . status: : No status:NO. PATIENT RELEVANT IMPLANT DATA REVIEWED: Not Applicable PATIENT PRESENTS WITH AN IMPLANTABLE OR ATTACHED CARDIOLOGY RN: No RADIOLOGY DEPARTMENT: General X-ray: Exam(s) Completed: Chest X-Ray PERIPHERAL IV DATA: Not applicable SIGNED BY: Rayne Khoury April 02, 2025 9:34 AM documented in this encounterGreene [facility] Hospital05-12-2025 NoteHNO ID: [id number] Author: JELLY SANCHEZ Tech Service: ? Author Type: Social Work Case Manager Type: Progress Notes Filed: 04/02/2025 09:34 Note Text: Radiology Service Progress Note PATIENT NAME: Mansi Caro DATE OF SERVICE: April 02, 2025 TIME: 9:34 AM PATIENT IDENTITY VERIFICATION COMPLETED USING TWO (2) IDENTIFIERS: Name and Date of confirmed by patient verbally. FALL SCREENING: Has the patient had 2 falls in the last year or 1 fall with injury or currently using an Ambulatory Assistive Device (Walker, Cane, Wheelchair, Crutches, etc.)? No PATIENT GENDER DATA: Assigned female at . status: : No status: NO. PATIENT RELEVANT IMPLANT DATA REVIEWED: Not Applicable PATIENT PRESENTS WITH AN IMPLANTABLE OR ATTACHED CARDIOLOGY RN: No RADIOLOGY DEPARTMENT: General X-ray: Exam(s) Completed: Chest X-Ray PERIPHERAL IV DATA: Not applicable SIGNED BY: Rayne Khoury April 02, 2025 9:34 AMBlanch[facility] System [facility] [id number] Telephone encounter Note* Telephone Encounter - Soumya Moss RN - 03/28/2025 9:45 AM EDT Voicemail received March 27, 2025 [id number] Spouse calling to check on status of [facility]. Call to pharmacy, [facility] has been authorized. They will be reaching out to patient to discuss co-pay. [facility]05-07-[facility] Miscellaneous Notes* Telephone Encounter - Soumya Moss RN - 03/28/2025 9:45 AM EDT Voicemail received March 27, 2025 1457 Spouse calling to check on status of Kaeo. Call to pharmacy, Nika has been authorized. They will be reaching out to patient to discuss co-pay. documented in this encounterGreene Memorial Hospital04-19-2025 Radiology Diagnostic study note [facility] [address] [place] [address] HIP, UNI W/ Pelvis 2-3 Views MR#: [id number] Acct: [id number] Name: MANSI CARO Rep #: [id number] : [id number] From: Vickie Coles MD PCP: Marci Lopez DO Status: REG E R Study:HIP, UNI W/ Pelvis 2-3 Views Date of Ex am: 03/10/25 Exam# [id number] Ordering Dr: Mellisa Taylor PROCEDURE: HIP, UNI W/ PELVIS 2-3 VIEWS 03/10/2025 REASON FOR EXAM: PAIN TECHNIQUE: 2 views of the left hip with AP pelvis COMPARISON: CT abdomen pelvis 10/2024. FINDINGS: Bones: No acute fracture or subluxation. No aggressive osseous lesions. Joints: Normal alignment. Mild degenerative changes. Soft tissues: Soft tissues are unremarkable. Other: The visualized bowel loops are normal caliber. RAD/HIP, UNI W/ Pelvis 2-3 Views IMPRESSION: Negative left hip radiographs. Reading Location: [id number] CC: Marci Lopez DO; AMRIK Harrison ~ Salesperson Neckties: Signed [facility]04-19-2025 Telephone encounter Note* Telephone Encounter - Linda Valdez RN - 03/10/2025 8:02 AM EDT S-Patient and patient spouse calling in re: patient fell yesterday and has Left hip pain . B-Happened yesterday A-states having hard time walking due to pain, No COVID Symptoms. Has a brouis, no other sites withpain R-Scheduled Same Day After hours appt today @ 10:00a 03/10/25 @ [place], address provided Reason for Disposition MILD weakness (i.e., does not interfere with ability to work, go to school, normal activities) (Exception: Mild weakness is a chronic symptom.) Answer Assessment - Initial Assessment Questions . Protocols used: Falls and Gitmvli-UJTDI-ZW [facility] [id number] Miscellaneous Notes* Telephone Encounter - Linda Valdez RN - 03/10/2025 8:02 AM EDT S-Patient and patient spouse calling in re: patient fell yesterday and has Left hip pain . B-Happened yesterday A-states having hard time walking due to pain, No COVID Symptoms. Has a brouis, no other sites withpain R-Scheduled Same Day After hours appt today @ 10:00a 03/10/25 @ [place], address provided Reason for Disposition MILD weakness (i.e., does not interfere with ability to work, go to school, normal activities) (Exception: Mild weakness is a chronic symptom.) Answer Assessment - Initial Assessment Questions . Protocols used: Falls and [id number] documented in this encounterSOhio State Health [id number] Telephone encounter Note* Telephone Encounter - Dipti Stewart - 03/09/2025 12:14 PM EDT Spouse called inquiring status of RX for valbenazine (INGREZZA) 40 mg capsule. Informed Spouse that order was signed on 02/27/2025. Order has been faxed to [facility]: [phone]. Spouse provided phone number for pharmacy ([phone]) to follow up on this request. Dipti Stewart [facility]04-18-2025 Miscellaneous Notes* Telephone Encounter - Dipti Stewart - 03/09/2025 12:14 PM EDT Spouse called inquiring status of RX for valbenazine (INGREZZA) 40 mg capsule. Informed Spouse that order was signed on 02/27/2025. Order has been faxed to [facility]: [phone]. Spouse provided phone number for pharmacy ([phone]) to follow up on this request. Dipti Riccardo documented in this encounterGreene Memorial Hospital04-10-2025 Telephone encounter Note * Telephone Encounter - Kalen Casey RT(R) - 03/01/2025 3:27 PM EDT Kyra, You have ordered an MRI on this patient with an implanted cardiac device. To clear the patient, as per our policy, patient will need a 2 view CXR prior to MRI scan. CXR is used to confirm there are no broken or abandoned leads. Thank you, Kalen Hall(Bairon)(MR),[facility]04-10-2025 Miscellaneous Notes* Telephone Encounter - Kaeln Casey RT(R) - 03/01/2025 3:27 PM EDT Kyra, You have ordered an MRI on this patient with an implanted cardiac device. To clear the patient, as per our policy, patient will need a 2 view CXR prior to MRI scan. CXR is used to confirm there are no broken or abandoned leads. Thank you, Kalen Hall(R)(MR),[facility] documented in this encounterGreene Memorial Hospital04-09-2025 NoteHNO ID: [id number] Author: LEYLA MURPHY MD Service: ? Author Type: Physician Type: Progress Notes Filed: 02/28/2025 09:12 Note Text: [facility] - FOLLOW UP EVALUATION The patient consented to the use of ambient AI software for draft documentation of the visit consistent with [facility]?s Notice of Privacy Practices. Jesus Manuel Freitas DO, DO [address] [place] [address] Dear Jesus Manuel Freitas DO, DO: I had the pleasure of seeing Ms. Caro for follow-up today. As you know she is a 70 year old right-handed female with a history of left hand tremor since 2021. Subjective Previous Plan- 10/20/2023 Visit: Please start PT Referral for OT Follow up in 3-6 months Interval History: Mansi is a 70-year-old female with a history of cerebral palsy, ischemic stroke, and parkinsonism presenting for evaluation of worsening tremors and spasticity. She is accompanied by her , who provides additional history. She is transferring care from Dr. Ramirez due to distance. Mansi has a history of cerebral palsy with right hemibody spasticity and motor delay requiring right ankle bracing. She also has a history of strabismus. In 2008, she experienced an ischemic stroke with multifocal left frontal and parietal infarcts, resulting in persistent right-sided spasticity. She has been managing spasticity with baclofen 5 mg three times daily, though she reports minimal improvement. She follows with Dr. Gusman. She has been experiencing an intermittent postural and action tremor in her left hand since 2021, which has worsened over time. The tremor is more pronounced during activities such as eating and writing and has recently started affecting her left shoulder. She reports difficulty with dexterity in her left hand. She still uses the right hand to eat and write. The tremor persists despite discontinuing Abilify, which initially improved symptoms. She did not tolerate Sinemet, which was prescribed previously, as it did not provide symptom relief. She does not report any factors that worsen or alleviate the tremor, though she notes that cannabis use during a visit to [place] temporarily alleviated her symptoms. She reports difficulty with balance and has experienced several falls over the past three months, often when standing up quickly or rushing to the bathroom. She sometimes uses a walker at home, depending on the day. She reports occasional difficulty swallowing solids but does not endorse coughing after drinking liquids. She notes a decreased sense of smell, which her believes began after a hospitalization in June 2024 for ischemic colitis. She reports memory loss and forgetfulness, such as using the wrong utensil while eating. She does not endorse hallucinations or acting out dreams. She reports feeling depressed and anxious, stating that she often wants to stay in bed and does not want to do anything. Her notes that she sleeps until 11:00 AM and then wants to go back to bed. She has not participated in physical therapy since her hospitalization in June. She reports dry mouth and involuntary mouth and tongue movements, which she finds bothersome. She has been using biotene for the dryness but finds it provides only temporary relief. She has a history of dental work, including full upper and lower implants over the past 18 months which coincides with the abnormal movements. Movement Disorders Medications Schedule - as of the start of the visit: Medications Questionnaires: In addition, the following areas that may be affected by abnormal involuntary movements were evaluated: Daily activities Difficulties with eating: Yes (mild) Difficulties in dressing: Yes (mild) Difficulties with hygiene activities: Yes (mild) Difficulties with handwriting: Yes (slight) Difficulties with doing hobbies and other activities: Yes (mild) Difficulties turning in bed: 0 (none) Difficulties getting out of bed, car or chair: Yes (mild) Tremors/Gait/Balance Shaking or tremors: Yes (moderate) Walking and balance problems: Yes (moderate) Number of falls in the Last Month: 0 Gait freezin (none) Autonomic/Pain Lightheadeness on standing: Yes (mild) Urinary problems: 0 (none) Constipation problems: Yes (mild) Pain and other sensations: Yes (moderate) Speech/Swallowing Speech problems: Yes (slight) Droolin (none) Chewing and swallowing problems: Yes (slight) solids Sleep/Fatigue Sleep problems: 0 (none) Daytime sleepiness: 0 (none) Fatigue: Yes (moderate) Mood/Behavior Depression: PHQ-9 Score: 17 usually representing moderately severe (15-19) depression. Anxiety: JENNY-7 Total Score: 10 usually representing moderate (10-14) anxiety. Finally, the following table shows the patient's overall global physical and mental health using the PROMIS scale: PROMIS-10 Flowsheet Row Office Visit from 02/27/2025 in N (more content not included)... [facility]04-09-2025 History of Present illness Narrative* Leyla Murphy MD - 02/28/2025 8:58 AM EDT [facility] - FOLLOW UP EVALUATION The patient consented to the use of ambient AI software for draft documentation of the visit consistent with [facility] s Notice of Privacy Practices. Jesus Manuel Freitas DO, DO [address] [facility] [id number] Dear Jesus Manuel Freitas DO, DO: I had the pleasure of seeing Ms. Caro for follow-up today. As you know she is a 70 year old right-handed female with a history of left hand tremor since 2021. Subjective Previous Plan- 10/20/2023 Visit: Please start PT Referral for OT Follow up in 3-6 months Interval History: Mansi is a 70-year-old female with a history of cerebral palsy, ischemic stroke, and parkinsonism presenting for evaluation of worsening tremors and spasticity. She is accompanied by her , who provides additional history. She is transferring care from Dr. Ramirez due to distance. Mansi has a history of cerebral palsy with right hemibody spasticity and motor delay requiring right ankle bracing. She also has a history of strabismus. In 2008, she experienced an ischemic stroke with multifocal left frontal and parietal infarcts, resulting in persistent right-sided spasticity. She has beenmanaging spasticity with baclofen 5 mg three times daily, though she reports minimal improvement. She follows with Dr. Gusman. She has been experiencing an intermittent postural and action tremor in her left hand since 2021, which has worsened over time. The tremor is more pronounced during activities such as eating and writing and has recently started affecting her left shoulder. She reports difficulty with dexterity in her left hand. She still uses the right hand to eat and write. The tremor persists despite discontinuing Abilify, which initially improved symptoms. She did not tolerate Sinemet, which was prescribed previously, as it did not provide symptom relief. She does not report any factors that worsen or alleviate the tremor, though she notes that cannabis use during a visit to [place] temporarily alleviated her symptoms. She reports difficulty with balance and has experienced several falls over the past three months, often when standing up quickly or rushing to the bathroom. She sometimes uses a walker at home, depending on the day. She reports occasional difficulty swallowing solids but does not endorse coughing after drinking liquids. She notes a decreased sense of smell, which her believes began after a hospitalization in June 2024 for ischemic colitis. She reports memory loss and forgetfulness, such as using the wrong utensil while eating. She does not endorse hallucinations or acting out dreams. She reports feeling depressed and anxious, stating that she often wants to stay in bed and does notwant to do anything. Her notes that she sleeps until 11:00 AM and then wants to go back to bed. She has not participated in physical therapy since her hospitalization in June. She reports dry mouth and involuntary mouth and tongue movements, which she finds bothersome. She has been using biotene for the dryness but finds it provides only temporary relief. She has a historyof dental work, including full upper and lower implants over the past 18 months which coincides with the abnormal movements. Movement Disorders Medications Schedule - as of the start of the visit: Medications Questionnaires: In addition, the following areas that may be affected by abnormal involuntary movements were evaluated: Daily activities Difficulties with eating: Yes (mild) Difficulties in dressing: Yes (mild) Difficulties with hygiene activities: Yes (mild) Difficulties with handwriting: Yes (slight) Difficulties with doing hobbies and other activities: Yes (mild) Difficulties turning in bed: 0 (none) Difficulties getting out of bed, car or chair: Yes (mild) Tremors/Gait/Balance Shaking or tremors: Yes (moderate) Walking and balance problems: Yes (moderate) Number of falls in the Last Month: 0 Gait freezin (none) Autonomic/Pain Lightheadeness on standing: Yes (mild) Urinary problems: 0 (none) Constipation problems: Yes (mild) Pain and other sensations: Yes (moderate) Speech/Swallowing Speech problems: Yes (slight) Droolin (none) Chewing and swallowing problems: Yes (slight) solids Sleep/Fatigue Sleep problems: 0 (none) Daytime sleepiness: 0 (none) Fatigue: Yes (moderate) Mood/Behavior Depression: PHQ-9 Score: 17 usually representing moderately severe (15-19) depression. Anxiety: JENNY-7 Total Score: 10 usually representing moderate (10-14) anxiety. Finally, the following table shows the patient's overall global physical and mental health using the PROMIS scale: PROMIS-10 Flowsheet Row Office Visit from 02/27/2025 in [facility] from 10/20/2023 in [facility] Global Physical Health T Score 26.7 32.4 Global Mental Health T Score 33.8 36.3 0-10 Standard Pain Scale 2 3 *PROMIS-10 scoring scale: mean = 50, over 50 is above average, under 50 is below average In addition, the following non-motor symptoms and palliative concerns were evaluated: Sleep/Fatigue: REM sleep behavior disorder: no Restless Legs Syndrome: Leg swelling: Impaired sense of smell: Yes Cognition: Memory and Thinkin - Mild. Evident cognitive dysfunction, but only minimal interference with myability to carry out normal activities and social interactions. Hallucinations and Psychosis: 0 - Normal. No hallucinations or psychotic behavior. Depressed Mood: 3 - Moderate. Depressed mood that interferes with, but does not preclude my abilityto carry out normal activities and social interactions. Anxious Mood: 3 - Moderate. Anxious feelings interfere with, but do not preclude, my ability to carry out normal activities and social interactions. Apathy: 2 - Mild. Apathy interferes with isolated activities and social interactions. Impulse Control: MoCA Cognitive assessment: Palliative Concerns: Caregiver burden: Spiritual concerns: Advanced directives on file: Palliative services: Therapy and Exercise: Last PT Date: Last OT Date: Date: Exercises Regularly: ALLERGIES Allergen Reactions Lipitor [Atorvastat* Heart racing; 07/04/10 patient states that she had started a lot of medication at this time and the she did not have a true allergic reaction and is willing to rechallenge Jose RN Current Outpatient Medications Medication Sig Acetaminophen 500 mg cap 500 mg. (Patient taking differently: 500 mg. PRN) albuterol sulfate 90 mcg/actuation aebs (Patient taking differently: PRN) oxyCODONE-acetaminophen (PERCOCET) 5-325 mg tablet 1 TABLET ORAL EVERY 6 HOURS NEEDED FOR SEVEREPAIN 30 DAYS lamoTRIgine (LAMICTAL) 100 mg tablet (Patient taking differently: Take 100 mg by mouth once daily.) LINZESS 145 mcg capsule Take 145 mcg by mouth every morning. polyethylene glycol 3350 (MIRALAX) 17 gram/dose powder ferrous sulfate (IRON) 325 mg (65 mg iron) tablet Take 325 mg by mouth once daily. hyoscyamine sulfate 0.125 mg ODT Take 0.125 mg by mouth three times a day. Docusate Sodium 100 mg tab Take by mouth once daily. polyethylene glycol 400 (BLINK TEARS OPHTHALMIC) Use in eyes. clopidogrel (PLAVIX) 75 mg tablet Take 75 mg by mouth once daily. Takes MWF metoprolol succinate ER (TOPROL XL) 25 mg 24 hr tablet Take 25 mg by mouth once daily. cholecalciferol (VITAMIN D3) 1,000 unit tab tablet Take 1,000 Units by mouth once daily. baclofen 5 mg tablet 1 tab po qid. Do not abruptly stop if at high dose, risk for withdrawal seizures. (Patient taking differently: Take 5 mg by mouth three times a day. 1 tab po qid. Do not abruptlystop if at high dose, risk for withdrawal seizures.) clonazePAM (KLONOPIN) 1 mg tablet Take 1 mg by mouth daily at bedtime. furosemide (LASIX) 20 mg tablet as needed. traZODone (DESYREL) 50 mg tablet Take 50 mg by mouth as needed. BABY ASPIRIN ORAL Take 81 mg by mouth every other day. pantoprazole DR (PROTONIX) 40 mg tablet Take 1 tablet by mouth twice daily. metFORMIN (GLUCOPHAGE) 500 mg tablet Take 1 tablet by mouth twice daily. (Patient taking differently: Take 500 mg by mouth daily with breakfast.) rosuvastatin (CRESTOR) 5 mg ORAL Tab 1 qd valbenazine (INGREZZA) 40 mg capsule Take 1 capsule by mouth once daily. No current facility-administered medications for this visit. Objective Vital Signs: Wt 62 kg (136 lb 11 oz) SpO2 96% BMI 20.78 kg/m Orthostatic Vitals: Sitting: BP 135/71 Pulse 80 Standing: BP 108/57 Pulse 89 Weight: 62 kg (136 lb 11 oz) No LMP recorded. Patient is postmenopausal. Body mass index is 20.78 kg/m . Neurological Exam Mental Status Awake and alert. Language is fluent with no aphasia. Cranial Nerves CN III, IV, : Extraocular movements intact bilaterally. CN V: Facial sensation is normal. CN VII: Full and symmetric facial movement. CN XI: Shoulder shrug strength is normal. CN XII: Tongue midline without atrophy or fasciculations. Motor Right Left Shoulder abduction 5 5 Elbow flexion 5 5 Wrist extension 5 5 Hip flexion 4 5 Knee flexion 5 5 Dorsiflexion 3+ 5 No micrographia. Writing is legible with right hand. Spirals and lines mildly tremulous with right,at least moderate with left hand. Very frequent orofacial dyskinesia of mouth and tongue. No involvement of forehead. Sensory Reduced vibration sense at ankles bilaterally. Reflexes Right Left Biceps 3+ 3+ Triceps 3+ 3+ Patellar 2+ 2+ Achilles 1+ 1+ Coordination Right: Cwmslu-kn-qday normal. Rapid alternating movement normal. Chdo-om-igub normal.Left: Ylmlwi-wp-mjen normal. Rapid alternating movement normal. Lpep-ex-fflt normal. Gait Casual gait: Wide stance. Reduced stride length. Spastic gait. Movement Disorders Scales Performed: MDS-UPDRS Motor subscale condition of exam Medication Off/On/Naiive OFF Time of UPDRS Time of Last Medication Last Medication Taken DBS Right N/A DBS Left N/A MDS-UPDRS Motor subscale scores Speech 2-Mild. Loss of modulation, diction, or volume, with a few words unclear, but the overall sentences easy to follow. Facial Expression 2-Mild. In addition to decreased eye-blink frequency, Masked facies present in the lower face as well, namely fewer movements around the mouth, such as less spontaneous smiling, butlips not parted. Rigidity Neck 0-Normal. No rigidity. Rigidity Right Upper Extremity 2-Mild. Rigidity detected without the activation maneuver, but full range of motion is easily achieved. (spasticity) Rigidity Left Upper Extremity 0-Normal. No rigidity. Rigidity Right Lower Extremity 0-Normal. No rigidity. Rigidity Left Lower Extremity 0-Normal. No rigidity. Finger Taps Right 1-Slight. a) the regular rhythm is broken with one or two interruptions or hesitations of the tapping movement, b) slight slowing, c) the amplitude decrements near the end of the 10taps. Finger Taps Left 1-Slight. a) the regular rhythm is broken with one or two interruptions or hesitations of the tapping movement, b) slight slowing, c) the amplitude decrements near the end of the 10 taps. Hand Movements Right 2-Mild. a) 3 to 5 interruptions during the movements, b) mild slowing, c) the amplitude decrements midway in the task. Hand Movements Left 0-Normal. No problem. Arm Movements Right 2-Mild. a) 3 to 5 interruptions during the movements, b) mild slowing, c) the amplitude decrements midway in the sequence. Arm Movements Left 2-Mild. a) 3 to 5 interruptions during the movements, b) mild slowing, c) the amplitude decrements midway in the sequence. Toe Taps Right 3-Moderate. a) more than 5 interruptions during the tapping movements or at least one longer arrest (freeze) in ongoing movement, b) moderate slowing, c) the amplitude decrements starting after the first tap. Toe Taps Left 2-Mild. a) 3 to 5 interruptions during the tapping movements, b) mild slowing, c) theamplitude decrements midway in the task. Leg Agility Right 1-Slight. a) the regular rhythm is broken with one or two interruptions or hesitations of the movement, b) slight slowing, c) the amplitude decrements near the end of the task. Leg Agility Left 1-Slight. a) the regular rhythm is broken with one or two interruptions or hesitations of the movement, b) slight slowing, c) the amplitude decrements near the end of the task. Arise From Chair 2-Mild. Pushes self up from arms of chair without difficulty. Gait 2-Mild. Independent walking but with substantial gait impairment. Gait Freezing 0-Normal. No freezing. Posture Stability 0-Normal. No problems: recovers with one or two steps. (Deferred) Posture 1-Slight. Not quite erect, but posture could be normal for older person. Body Bradykinesia 2-Mild. Mild global slowness and poverty of spontaneous movements. Postural Tremor Hand Right 0-Normal. No tremor. Postural Tremor Hand Left 1-Slight. Tremor is present but less than 1cm in amplitude. Kinetic Tremor Right 1-Slight. Tremor is present but less than 1cm in amplitude. Kinetic Tremor Left 2-Mild. Tremor is at least 1 but less than 3 cm in amplitude. Rest Tremor Amplitude Right Upper Extremity 1-Slight. < 1 cm in maximal amplitude. Rest Tremor Amplitude Left Upper Extremity 2-Mild. > 1 cm but < 3 cm in maximal amplitude. Rest Tremor Amplitude Right Lower Extremity 0-Normal. No tremor. Rest Tremor Amplitude Left Lower Extremity 0-Normal. No tremor. Rest Tremor Amplitude Lip/Jaw 1-Slight. < 1 cm in maximal amplitude. Rest Tremor Constancy 2-Mild. Tremor at rest is present 26-50% of the entire examination period. MDS-UPDRS Motor subscale totals Left Total 11 Right Total 13 Midline Total 12 Tremor Total / 10 10 PIGD Total / 3 2 Overall Total 38 Change Better/Worse % Change Compared to Last Filed Total Pertinent Studies MRI brain (2008): Evolving subacute infarcts in the left frontal, parietal, and supra occipital regions. - (09/21/2023) CLEMENCIA Scan: Slight asymmetry in uptake involving the posterior left putamen related toremote left MCA territory infarct rather than a true grade 1 loss. No convincing primary neurodegenerative process to suggest underlying abnormality of dopamine transporter density within the striatum. Assessment and Plan: Assessment Ms. Caro is a right-handed 70 year old year old female with left hand tremor since 2021. Initial evaluation revealed rest tremor of the left hand and parkinsonism in the setting of antipsychotic use. Plan of care was to discontinue Abilify and observe for symptom resolution. One year later, therewas significant reduction of symptoms, but tremor still persisted, suggesting that there may have been unmasking of very early primary parkinsonism. However, no Sinemet response and Clemencia scan was performed which was negative. Difficult clinical picture due to right-sided spasticity from CP and then stroke in 2008. Now with mild action tremor on the right side as well. Suspect ET. Interval development of involuntary mouth and tongue movements consistent with tardive dyskinesia in the setting of past neuroleptic exposure. 1. Essential tremor (G25.0) - Bilateral postural and action tremor, more pronounced on the left hand; tremor persists despite discontinuation of Abilify and is exacerbated during activities such as eating. - Sinemet trial was ineffective. - CLEMENCIA scan on 09/21/2023 showed slight asymmetry in uptake involving the posterior left putamen, attributed to a remote left MCA territory infarct; no evidence of a primary neurodegenerative process. - Family history of essential tremor noted. - Discussed potential treatment options; will address tardive dyskinesia first before initiating treatment for tremor. - Ordered brain MRI to evaluate for any other underlying causes. 2. Dyskinesia, tardive (G24.01) - Orofacial dyskinesia observed, likely secondary to previous use of Abilify and Compazine. - Ordered brain MRI to evaluate for any other underlying causes. - Initiated Ingrezza 40 mg daily; prescription sent to [facility] for processing. - Patient and family educated on potential side effects and the process of obtaining medication through a specialty pharmacy. The following are the current problems noted and addressed during this visit: Essential tremor (primary encounter diagnosis) Dyskinesia, tardive Plan 02/27/2025 Visit: - Start taking Ingrezza 40 mg daily for mouth movements; prescription sent to [facility]. Once this is controlled we can start working on the tremors. - Continue other current medications as discussed. - Undergo a brain MRI; scheduling will be coordinated to accommodate your cardiac implant. - Monitor for any changes in symptoms or side effects from new medication and report them. Patient's perception of importance for healthcare provider to let them know of research trials for which they may be eligible? Very Important Interested in clinical research? Not discussed Updated Movement Disorders Medication Schedule: Medications Return at or around: 05/29/25 Level of service : 45109 (40-68 min). Time spent 67 min on the day of service, which included preparing to see the patient, cqqh-it-vjpk patient care, completing clinical documentation, obtaining and/or reviewing separately obtained history, performing a medically appropriate examination, counseling and educating the patient/family/caregiver, and ordering medications, tests, or procedures. Thank you for allowing me to be part of the clinical care of this patient! I look forward to continued participation in the patient s care with you. Please do not hesitate to call with any questions. Sincerely, Leyla Murphy MD [facility] History of Present illness Narrative* Michel Ibrahim - 02/28/2025 7:32 AM EDT [facility] received prescription(s) for Ingrezza from Leyla Murphy's office. Benefits investigation was conducted, indicating that a prior authorization is required by patient's insurance plan with [employer]. Encounter will be updated once prior authorization has been submitted by [facility]. Michel Ibrahim CPhT Neurology, Cardiology & Infectious Disease [facility] documented in [facility]04-[facility]25 NoteHNO ID: [id number] Author: WESLEY HAYES [facility] Service: ? Author Type: Pharmacist Type: Progress Notes Filed: 03/09/2025 16:31 Note Text: [facility] received prescription(s) for Ingrezza from Leyla Murphy's office. Benefits investigation was conducted, indicating that a prior authorization is required by patient's insurance plan with [employer]. PA was denied with details listed below. Plan Name: [employer] Plan Agent/Rios: [id number] Case: [id number] Phone/ / [phone] Case: Denial reason: Full denial letter has been scanned into patients chart. [facility] will review and assess if appeal is appropriate. Note will be updated accordingly. Wesley Hayes [facility]04-09-2025 NoteHNO ID: [id number] Author: WESLEY HAYES [facility] Service: ? Author Type: Pharmacist Type: Progress Notes Filed: 03/29/2025 10:22 Note Text: [facility] received prescription(s) for Autedo from Leyla Murphy's office. Benefits investigation was conducted, indicating that a prior authorization is required by patient's insurance plan with [employer]. PA was approved with details listed below: Plan Name: [employer] Approval Dates: 03/13/25 - 11/21/25 Pt's copay is $196. Shipment has been arranged, and pt will receive medication(s) on 03/30. Pt has been instructed to follow-up with clinic to confirm start date. 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 . I reviewed with spouse appropriate dose and dosing frequency, administration directions (), potential side effects, ability to self-administer and proper storage and handling requirements. S/he expressed understanding of the information we provided today, and received our contact information for the pharmacy if s/he had any other questions. Office/provider notes have been reviewed prior to dispensing the medication. PAST MEDICAL HISTORY Diagnosis Date Anxiety state, unspecified Chronic depressive personality disorder Depression Hyperlipidemia PMH - PAST MEDICAL HISTORY OF ? epilepsy Smoking Stroke (HCC) Unspecified essential hypertension Essential hypertension Current Outpatient Medications on File Prior to Visit Medication Sig Acetaminophen 500 mg cap 500 mg. (Patient taking differently: 500 mg. PRN) albuterol sulfate 90 mcg/actuation aebs (Patient taking differently: PRN) oxyCODONE-acetaminophen (PERCOCET) 5-325 mg tablet 1 TABLET ORAL EVERY 6 HOURS NEEDED FOR SEVERE PAIN 30 DAYS lamoTRIgine (LAMICTAL) 100 mg tablet (Patient taking differently: Take 100 mg by mouth once daily.) LINZESS 145 mcg capsule Take 145 mcg by mouth every morning. polyethylene glycol 3350 (MIRALAX) 17 gram/dose powder ferrous sulfate (IRON) 325 mg (65 mg iron) tablet Take 325 mg by mouth once daily. hyoscyamine sulfate 0.125 mg ODT Take 0.125 mg by mouth three times a day. Docusate Sodium 100 mg tab Take by mouth once daily. polyethylene glycol 400 (BLINK TEARS OPHTHALMIC) Use in eyes. clopidogrel (PLAVIX) 75 mg tablet Take 75 mg by mouth once daily. Takes MWF metoprolol succinate ER (TOPROL XL) 25 mg 24 hr tablet Take 25 mg by mouth once daily. cholecalciferol (VITAMIN D3) 1,000 unit tab tablet Take 1,000 Units by mouth once daily. baclofen 5 mg tablet 1 tab po qid. Do not abruptly stop if at high dose, risk for withdrawal seizures. (Patient taking differently: Take 5 mg by mouth three times a day. 1 tab po qid. Do not abruptly stop if at high dose, risk for withdrawal seizures.) clonazePAM (KLONOPIN) 1 mg tablet Take 1 mg by mouth daily at bedtime. furosemide (LASIX) 20 mg tablet as needed. traZODone (DESYREL) 50 mg tablet Take 50 mg by mouth as needed. BABY ASPIRIN ORAL Take 81 mg by mouth every other day. pantoprazole DR (PROTONIX) 40 mg tablet Take 1 tablet by mouth twice daily. metFORMIN (GLUCOPHAGE) 500 mg tablet Take 1 tablet by mouth twice daily. (Patient taking differently: Take 500 mg by mouth daily with breakfast.) rosuvastatin (CRESTOR) 5 mg ORAL Tab 1 qd No current facility-administered medications on file prior to visit. ALLERGIES Allergen Reactions Lipitor [Atorvastat* Heart racing; 07/04/10 patient states that she had started a lot of medication at this time and the she did not have a true allergic reaction and is willing to rechallenge [facility] RN Problem List Noted Noted By Resolved Resolved By Spastic hemiparesis (HCC) 05/13/2023 Ghazala Gusman MD No Parkinsonism ([facility]) 06/25/2022 Sherif Ramirez MD No Cholelithiasis 12/26/2014 Jasper Jackson MD No Peripheral vertigo, unspecified 01/14/2010 Saritha Tech, Radha No Vertigo of central origin 01/14/2010 Saritha Tech, Radha No Acute, but ill-defined, cerebrovascular disease 08/14/2009 Florina Alfonso (Rn)(Hist), RN No Personal history of colonic polyps 02/21/2015 Guy Mcgarry MD 02/21/2015 Social Work Case Manager Assessment Patient confirmed: Yes Med/dose confirmed: Yes Supplies needed: Welcome packet Copay amount: 196 Copay form of payment: Credit card on file Payment confirmed: Yes Delivery method: FedEx Signature required: Waived on patient request Delivery address: [address] [place] [address] Delivery date: 03/30/25 Questions or concerns for the pharmacist?: Yes Patient questions/concerns: Medication cost, Medication dose, Medication route, Medication storage, Side effects, Delivery Did you have any side effects believed to be related to this medication, that resulted in hospitalization?: No [facility] SPECIALTY CLINICAL ASSESSMENT - NEUROLOGY V7: Assessment to use: Initial Vaccination status assessment at initiation as andra (more content not included)...[facility]04-09-2025 NoteHNO ID: [id number] Author: ?, ?, ? Service: ? Author Type: ? Type: Progress Notes Filed: 03/13/2025 08:39 Note Text: [facility] received prescription(s) for Autedo from Leyla Murphy's office. Benefits investigation was conducted, indicating that a prior authorization is required by patient's insurance plan with [employer]. Note will be updated once prior authorization has been submitted. Jose Taveras CPhT (Dee) [facility] Neurology/Cardiology/Infections Disease [facility] P[facility] NoteHNO ID: [id number] Author: ?, ?, ? Service: ? Author Type: ? Type: Progress Notes Filed: 03/16/2025 15:10 Note Text: [facility] received prescription(s) for Austedo from Dr. Murphy's office. Benefits investigation was conducted, indicating that a prior authorization is required. PA was approved with details listed below. Plan Name: [employer] Medicare Approval Dates: 03/13/25 - 11/21/25 Prescriptions will now be processed through [facility] for determination of next steps. Estefany Anguiano CPhT [facility], Neurology, Cardiology, AND Infectious Disease P: [phone] F: [phone]2025 NoteHNO ID: [id number] Author: ?, ?, ? Service: ? Author Type: ? Type: Progress Notes Filed: 03/07/2025 10:28 Note Text: PA was initiated and pending review. Plan Name: [employer] Medicare Plan Agent/Rios: [id number] Case: [id number] Timeline: Standard Michel Ibrahim CPhT Neurology, Cardiology AND Infectious Disease [facility]25 NoteHNO ID: [id number] Author: ?, ?, ? Service: ? Author Type: ? Type: Progress Notes Filed: 02/28/2025 07:34 Note Text: [facility] received prescription(s) for Ingrezza from Lelya Murphy's office. Benefits investigation was conducted, indicating that a prior authorization is required by patient's insurance plan with [employer]. Encounter will be updated once prior authorization has been submitted by [facility]. Michel Ibrahim CPhT Neurology, Cardiology AND Infectious Disease [facility] Telephone encounter Note* Telephone Encounter - Dipti Stewart - 02/27/2025 4:54 PM EDT Patient's spouse reports that Patient has a HEAD BELLHOP CAPTAIN-D implant (Cardiac Resynchronization Therapy with Defibrillator). Per scheduling protocol, staff message forwarded to Imaging Implants pool to contact Patient for appointment coordination/scheduling. Patient/Spouse will be contacted within 4 business days. Dipti Stewart [facility]04-08-2025 Miscellaneous Notes* Telephone Encounter - Dipti Stewart - 02/27/2025 4:54 PM EDT Patient's spouse reports that Patient has a HEAD BELLHOP CAPTAIN-D implant (Cardiac Resynchronization Therapy with Defibrillator). Per scheduling protocol, staff message forwarded to [facility] to contact Patient for appointment coordination/scheduling. Patient/Spouse will be contacted within 4 business days. Dipti Stewart [facility]04[facility] Instructions* Patient Instructions* Leyla Murphy MD - 02/27/2025 4:44 PM EDT It was a pleasure to see you today. We addressed the following diagnoses: Essential tremor (primary encounter diagnosis) Dyskinesia, tardive My recommendations are as follows: - Start taking Ingrezza 40 mg daily for mouth movements; prescription sent to [facility]. Once this is controlled we can start working on the tremors. - Continue other current medications as discussed. - Undergo a brain MRI; scheduling will be coordinated to accommodate your cardiac implant. - Monitor for any changes in symptoms or side effects from new medication and report them. Movement Disorders Medication Schedule: Medications Return at or around: 05/29/25 If there are any concerns before your next visit, please call or you can send a message through [employer]. You can also now schedule and select appointments through [employer]. Leyla Murphy MD [facility]03-[facility]25 Telephone encounter Note * Telephone Encounter - Sari Parra RN - 01/28/2025 2:35 PM EDT S: Patient's spoke with AMY nurse regarding medication concern B: Onset of symptoms/concern was seen in the office 01/23/25. Spouse calling today thought the pharmacy needed clarification on the prescription and that maybe an oral antibiotic was called into the pharmacy. A: was at the pharmacy today and the Pharmacist states they had a question and the Patient's was thinking that there maybe was a second medication that was going to be ordered. states he will call back with concerns. Feels her pain is not improving Denies fevers. R: AMY RN called the pharmacy Pharmacy states they have no questions the insurance didn't approve the Ciprofloxacin-dexamethasone suspension Neomycin - Polymyxin HC 4 drops into the affected ear 3 times a day was filled and picked up. AMY RN relayed the message back to the . Patient's husbandunderstands care advice. No further needs at this time. Patient's instructed to call back with new or worsening symptoms. Reason for Disposition [1] Caller has NON-URGENT medicine question about med that PCP prescribed AND [2] triager unable toanswer question Protocols used: Medication Question [id number] [facility] [id number] Miscellaneous Notes* Telephone Encounter - Sari Parra RN - 01/28/2025 2:35 PM EDT S: Patient's spoke with [facility] nurse regarding medication concern B: Onset of symptoms/concern was seen in the office 01/23/25. Spouse calling today thought the pharmacy needed clarification on the prescription and that maybe an oral antibiotic was called into the pharmacy. A: was at the pharmacy today and the Pharmacist states they had a question and the Patient's was thinking that there maybe was a second medication that was going to be ordered. states he will call back with concerns. Feels her pain is not improving Denies fevers. R: AMY RN called the pharmacy Pharmacy states they have no questions the insurance didn't approve the Ciprofloxacin-dexamethasone suspension Neomycin - Polymyxin HC 4 drops into the affected ear 3 times a day was filled and picked up. CAC RN relayed the message back to the . Patient's husbandunderstands care advice. No further needs at this time. Patient's instructed to call back with new or worsening symptoms. Reason for Disposition [1] Caller has NON-URGENT medicine question about med that PCP prescribed AND [2] triager unable toanswer question Protocols used: Medication Question [id number] documented in this [facility]02-28-2025 Telephone encounter Note* Telephone Encounter - Dipti Stewart - 01/19/2025 1:57 PM EST Patient was inappropriately scheduled as an established patient with Dr. Murphy on 05/15/2025. Patient has only seen Dr. Ramirez in the past, so they are a new patient to Dr. Murphy. Appointment needs to be 60-minutes. For this reason Patient's appointment time has been rescheduled to 4:00 PM to allow adequate time for appointment. Patient has been notified of appt change via [employer]. Dipti Stewart [facility]02-28-2025 Miscellaneous Notes* Telephone Encounter - Dipti Stewart - 01/19/2025 1:57 PM EST Patient was inappropriately scheduled as an established patient with Dr. Murphy on 05/15/2025. Patient has only seen Dr. Ramirez in the past, so they are a new patient to Dr. Murphy. Appointment needs to be 60-minutes. For this reason Patient's appointment time has been rescheduled to 4:00 PM to allow adequate time for appointment. Patient has been notified of appt change via [employer]. Dipti Stewart documented in [facility]02-28-2025 History of Present illness Narrative* Mellisa Coats, TECHNOLOGIST - 01/19/2025 10:00 AM EST Radiology Service Progress Note PATIENT NAME: Mansi Caro DATE OF SERVICE: January 19, 2025 TIME: 10:06 AM PATIENT IDENTITY VERIFICATION COMPLETED USING TWO (2) IDENTIFIERS: Name and Date of confirmedby patient verbally. FALL SCREENING: Has the patient had 2 falls in the last year or 1 fall with injury or currently using an Ambulatory Assistive Device (Walker, Cane, Wheelchair, Crutches, etc.)? No PATIENT GENDER DATA: Assigned female at . status: : No status:NO. PATIENT RELEVANT IMPLANT DATA REVIEWED: Not Applicable PATIENT PRESENTS WITH AN IMPLANTABLE OR ATTACHED CARDIOLOGY RN: No RADIOLOGY DEPARTMENT: CT; Exam(s) Completed: Chest PERIPHERAL IV DATA: Not applicable SIGNED BY: TECHNOLOGIST Bhavya January 19, 2025 10:06 AM documented in this encounterGreene [facility]02-28-2025 NoteHNO ID: [id number] Author: MELLISA COATS TECHNOLOGIST Service: ? Author Type: Technologist Type: Progress Notes Filed: 01/19/2025 10:08 Note Text: Radiology Service Progress Note PATIENT NAME: Mansi Caro DATE OF SERVICE: January 19, 2025 TIME: 10:06 AM PATIENT IDENTITY VERIFICATION COMPLETED USING TWO (2) IDENTIFIERS: Name and Date of confirmed by patient verbally. FALL SCREENING: Has the patient had 2 falls in the last year or 1 fall with injury or currently using an Ambulatory Assistive Device (Walker, Cane, Wheelchair, Crutches, etc.)? No PATIENT GENDER DATA: Assigned female at . status: : No status: NO. PATIENT RELEVANT IMPLANT DATA REVIEWED: Not Applicable PATIENT PRESENTS WITH AN IMPLANTABLE OR ATTACHED CARDIOLOGY RN: No RADIOLOGY DEPARTMENT: CT; Exam(s) Completed: Chest PERIPHERAL IV DATA: Not applicable SIGNED BY: TECHNOLOGIST Bhavya January 19, 2025 10:06 [facility] Evaluation note* Diagnosis Onset Date Resolution Status Admit Date Ischemic cardiomyopathy acute F ebruary 2024 1:19pm Presence of biventricular implantable cardioverter-defibrillator acute Febru dl 5 1:19pm Anemia chronic January 23 1:02pm Abdominal pain acute January 9:03am Pelvic pain acute February 13, 2 025 9:03am Chronic constipation chronic Nirmal h 2024 9:03am Abdominal pain acute January 8:26am Blood in stool acute January 8:26am Anemia chronic February 14 8:26am Chronic constipation chronic Nirmal h 2024 8:26am [facility] Work Phone: 1(843) 759-585202-27-2025 Evaluation note* Diagnosis Onset Date Resolution Status Admit Date Ischemic cardiomyopathy acute F ebruary 2024 1:19pm Presence of biventricular implantable cardioverter-defibrillator acute 2024 1:19pm Anemia chronic January 23 1:02pm Abdominal pain acute January 9:03am Pelvic pain acute February 13, 025 9:03am Chronic constipation chronic Nirmal h 2024 9:03am Abdominal pain acute January 8:26am Blood in stool acute January 8:26am Anemia chronic February 14 8:26am Chronic constipation chronic Nirmal h 2024 8:26am Generalized weakness acute April 19, 2025 11:26am [facility] Work Phone: 1(768) 625-555201-07-2025 Evaluation note* Diagnosis Onset Date Resolution Status Admit Date Ischemic cardiomyopathy acute J anuary 2024 1:48pm Presence of biventricular implantable cardioverter-defibrillator acute Novua 2024 1:48pm Syncope and collapse acute 2024 1:48pm Abdominal pain acute December 122024 12:53pm Constipation inactive November 12:53pm Abdominal pain acute December 192024 2:48pm Pelvic pain acute December 19, 2024 2:48pm Occlusion of superior mesenteric artery chronic December 19, 2024 2:48pm Ischemic cardiomyopathy acute F ebruary 2024 1:19pm Presence of biventricular implantable cardioverter-defibrillator acute u 2024 1:19pm Anemia chronic January 23 1:02pm Abdominal pain acute January 9:03am Pelvic pain acute February 13, 2 025 9:03am Chronic constipation chronic Nirmal h 2024 9:03am Abdominal pain acute January 8:26am Blood in stool acute January 8:26am Anemia chronic February 14 8:26am Chronic constipation chronic Nirmal h 2024 8:26am [facility] Work Phone: 1(747) 679-312301-03-2025 Telephone encounter Note* Telephone Encounter - Becky Diaz - 11/24/2024 12:43 PM EST Name of caller: Song Contact phone number: [phone] Relationship to Patient: spouse/SO Provider: John Practice: [facility] Chief Complaint/Reason for Call: Patient , Beatrice, is calling to follow up with Dr. Lopez after patient appointment with her Gasteoenterologist. He is requesting a call back to discuss what happened at her appointment regarding her colitis diagnosis. He can be reached at [phone]. Best time of day caller can be reached: Any Patient advised that office/PCP has 24-48 business hours to return their call: N/A [facility] [id number] Miscellaneous Notes* Telephone Encounter - Becky Diaz - 11/24/2024 12:43 PM EST Name of caller: Song Contact phone number: [phone] Relationship to Patient: spouse/SO Provider: John Practice: [facility] Chief Complaint/Reason for Call: Patient , Beatrice, is calling to follow up with Dr. Lopez after patient appointment with her Gasteoenterologist. He is requesting a call back to discuss what happened at her appointment regarding her colitis diagnosis. He can be reached at [phone]. Best time of day caller can be reached: Any Patient advised that office/PCP has 24-48 business hours to return their call: N/A documented in this [facility]01-02-2025 Evaluation note* Diagnosis Onset Date Resolution Status Admit Date Chronic abdominal pain inactive Ja nuary 2024 1:56pm Ischemic cardiomyopathy acute J anuary 2024 1:48pm Presence of biventricular implantable cardioverter-defibrillator acute Novua ry 2024 1:48pm Syncope and collapse acute Rogelio dl2024 1:48pm Abdominal pain acute December 122024 12:53pm Constipation inactive November 12:53pm Abdominal pain acute December 192024 2:48pm Pelvic pain acute December 19, 2024 2:48pm Occlusion of superior mesenteric artery chronic December 19, 2024 2:48pm Ischemic cardiomyopathy acute F ebruary 2024 1:19pm Presence of biventricular implantable cardioverter-defibrillator acute u 2024 1:19pm Anemia chronic January 23 1:02pm Abdominal pain acute January 9:03am Pelvic pain acute February 13, 025 9:03am Chronic constipation chronic Nirmal h 2024 9:03am Abdominal pain acute January 8:26am Blood in stool acute January 8:26am Anemia chronic February 14 8:26am Chronic constipation chronic Nirmal h 2024 8:26am [facility] Work Phone: 1(900) 647-551912-26-2024 Telephone encounter Note* Telephone Encounter - Karis Bolden - 11/16/2024 10:17 AM EST Name of caller: Song Contact phone number: [phone] Relationship to Patient: spouse/SO Provider: Dr Marci Lopez Practice: [facility] Chief Complaint/Reason for Call: Song called to let doctor know appointment is set for 12/19/24 with vascular surgeon, and is not sure if that's soon enough. Please advise Best time of day caller can be reached: PM [place] [id number] Miscellaneous Notes* Telephone Encounter - Karis Bolden - 11/16/2024 10:17 AM EST Name of caller: Song Contact phone number: [phone] Relationship to Patient: spouse/SO Provider: Dr Marci Lopez Practice: [facility] Chief Complaint/Reason for Call: Song called to let doctor know appointment is set for 12/19/24 with vascular surgeon, and is not sure if that's soon enough. Please advise Best time of day caller can be reached: PM documented in this [facility]12-24-2024 Telephone encounter Note* Telephone Encounter - Ghazala Gusman MD - 11/14/2024 4:08 PM EST Needs to come back in to reassess. In the meantime- can increase from 5mg qid to 10mg tid- messaged patient. [facility]12-24-2024 Miscellaneous Notes* Telephone Encounter - Ghazala Gusman MD - 11/14/2024 4:08 PM EST Needs to come back in to reassess. In the meantime- can increase from 5mg qid to 10mg tid- messaged patient. * Telephone Encounter - Janee Argueta RN - 11/14/2024 9:25 AM EST MELLISSA: 05/17/24 IMPRESSION and PLAN: 69 yo woman with PMH anxiety, depression, HTN, HPL, smoker, stroke with spasticity right HF/hip add/KF, but more in the distal aspects PF and D4/5 toe flexors, less so hip and KFs. She had element ofdynamic spasticity with gait with right foot going into PF and flexor toe curling - this much better baclofen abi and controlling spasticity at 5mg qid, loopy at higher doses. 1 year supply since dosing stable. F/u 12 months Janee Argueta RN * Telephone Encounter - Hmuaira Wetzel - 11/13/2024 10:56 AM EST Patient last seen on 05/17/24 Mr. Song Pena is calling for his Mansi Caro. She is taking 5 mg. Baclofen x4 tablets per day for spasticity. The medication is not helping with her spasticity right achilles tendon on the left hand side is not breaking free. Still pretty tight. Is there something you can prescribe to help with this? Pharmacy: [facility] in [place], [place] documented in this encounter[facility]12-24-2024 Telephone encounter Note * Telephone Encounter - Janee Argueta RN - 11/14/2024 9:25 AM EST MELLISSA: 05/17/24 IMPRESSION and PLAN: 69 yo woman with PMH anxiety, depression, HTN, HPL, smoker, stroke with spasticity right HF/hip add/KF, but more in the distal aspects PF and D4/5 toe flexors, less so hip and KFs. She had element ofdynamic spasticity with gait with right foot going into PF and flexor toe curling - this much better baclofen abi and controlling spasticity at 5mg qid, loopy at higher doses. 1 year supply since dosing stable. F/u 12 months Janee Argueta RN [facility]12-23-2024 Telephone encounter Note* Telephone Encounter - Humaira Wetzel - 11/13/2024 10:56 AM EST Patient last seen on 05/17/24 Mr. Song Pena is calling for his Mansi Caro. She is taking 5 mg. Baclofen x4 tablets per day for spasticity. The medication is not helping with her spasticity right achilles tendon on the left hand side is not breaking free. Still pretty tight. Is there something you can prescribe to help with this? Pharmacy: [facility] in [place], [place] [facility]11-28-2024 Evaluation note* Diagnosis Chronic kidney disease, stage 3a (HCC)- Primary documented in this encounter [facility] [id number] Telephone encounter Note* Telephone Encounter - Antonio Lockhart - 10/06/2024 4:26 PM EST Name of caller: Song Contact phone number: [phone] Relationship to Patient: spouse/SO Provider: Dr. Lopez Practice: [facility] Chief Complaint/Reason for Call: Song wanted to ask Dr. Lopez to consider long covid for patient. States all the symptoms are there. Requesting a call back to discuss. Please advise. Best time of day caller can be reached: any Patient advised that office/PCP has 24-48 business hours to return their call: [facility] [id number] Miscellaneous Notes* Telephone Encounter - Antonio Lockhart - 10/06/2024 4:26 PM EST Name of caller: Song Contact phone number: [phone] Relationship to Patient: spouse/SO Provider: Dr. Lopez Practice: [facility] Chief Complaint/Reason for Call: Song wanted to ask Dr. Lopez to consider long covid for patient. States all the symptoms are there. Requesting a call back to discuss. Please advise. Best time of day caller can be reached: any Patient advised that office/PCP has 24-48 business hours to return their call: documented in this encounterSOhio State Health SystemPzalkz25-02-5844 NoteHNO ID: [id number] Author: ROXANNE BOO RT(R) Service: ? Author Type: Social Work Case Manager Type: Progress Notes Filed: 08/13/2024 11:59 Note Text: RADIOLOGY SERVICE PROGRESS NOTE SERVICE DATE: 08/13/2024 SERVICE TIME: 11:58 AM PATIENT IDENTITY VERIFICATION COMPLETED USING TWO (2) STANDARD IDENTIFIERS: Name and Date of confirmed by patient verbally and Name and Date of confirmed by identification band FALL SCREENING: Has the patient had 2 falls in the last year or 1 fall with injury or currently using an Ambulatory Assistive Device (Walker, Cane, Wheelchair, Crutches, etc.)? Yes, Patient High Risk for Falls What interventions were put in place to prevent falls during this visit? Instructed Patient to Remain Seated (Not on Exam Table) Until Exam, Increased Observations by Caregivers, and Escorted to/from Restroom PATIENT GENDER DATA: .female : No ALLERGIES: NA MEDICATIONS REVIEWED: Not applicable PATIENT RELEVANT IMPLANT DATA REVIEWED: Not Applicable PATIENT PRESENTS WITH AN IMPLANTABLE OR ATTACHED CARDIOLOGY RN: NA CREATININE: Creatinine Date Value Ref Range Status 2009 0.82 0.70 - 1.40 mg/dL Final 01/08/2009 0.74 0.70 - 1.40 mg/dL Final 01/07/2009 0.82 0.70 - 1.40 mg/dL Final eGFR-All Other Races Date Value Ref Range Status 11/05/2008 >60 Final Comment: eGFR (Estimated GFR) Units of measure: mL/min/1.73 meters squared eGFR is derived from the reexpressed MDRD Study equation using the following parameters: serum creatinine, age, gender and race. The creatinine assay has been calibrated to be traceable to IDMS. An eGFR <60 mL/min/1.73m2 for >3 months is consistent with chronic kidney disease. Refer to KDOQI guidelines for clinical interpretation. eGFR- Date Value Ref Range Status 11/05/2008 >60 Final P.O.C.T. RESULTS: POC done: Yes, See Lab Tab August 13, [address] PERFORMED: No IV SITE: Ambulatory: A peripheral IV was started in the Right antecubital site with a Angio cath: 22 gauge. POST EXAM PIV STATUS: Discontinued PROCEDURE TYPE: NM INJECT: PET/CT BODY SCAN. 6.4 mCi F18 FDG. No other medications given.. ADMINISTRATION TIME: 1150 PATIENT DISCHARGED TO: Ambulatory patient, left NM department area. A Diagnostic radioactive procedure has taken place, with no further precautions necessary other than routine body substance precautions. More information regarding radiation safety can be found using this link: [email or web address] SIGNATURE: RT Daniel(R) PATIENT NAME: Mansi aCro DATE: August 13, 2024 TIME: 11:58 AM PAGER/CONTACT #:[facility]09-22-2024 History of Present illness Narrative* Roxanne Boo RT(R) - 08/13/2024 11:58 AM EDT RADIOLOGY SERVICE PROGRESS NOTE SERVICE DATE: 08/13/2024 SERVICE TIME: 11:58 AM PATIENT IDENTITY VERIFICATION COMPLETED USING TWO (2) STANDARD IDENTIFIERS: Name and Date of confirmed by patient verbally and Name and Date of confirmed by identification band FALL SCREENING: Has the patient had 2 falls in the last year or 1 fall with injury or currently using an Ambulatory Assistive Device (Walker, Cane, Wheelchair, Crutches, etc.)? Yes, Patient High Riskfor Falls What interventions were put in place to prevent falls during this visit? Instructed Patient to Remain Seated (Not on Exam Table) Until Exam, Increased Observations by Caregivers, and Escorted to/fromRestroom PATIENT GENDER DATA: .female : No ALLERGIES: NA MEDICATIONS REVIEWED: Not applicable PATIENT RELEVANT IMPLANT DATA REVIEWED: Not Applicable PATIENT PRESENTS WITH AN IMPLANTABLE OR ATTACHED CARDIOLOGY RN: NA CREATININE: Creatinine Date Value Ref Range Status 2009 0.82 0.70 - 1.40 mg/dL Final 01/08/2009 0.74 0.70 - 1.40 mg/dL Final 01/07/2009 0.82 0.70 - 1.40 mg/dL Final eGFR-All Other Races Date Value Ref Range Status 11/05/2008 >60 Final Comment: eGFR (Estimated GFR) Units of measure: mL/min/1.73 meters squared eGFR is derived from the reexpressed MDRD Study equation using the following parameters: serum creatinine, age, gender and race. The creatinine assay has been calibrated to be traceable to IDMS. An eGFR <60 mL/min/1.73m2 for >3 months is consistent with chronic kidney disease. Refer to KDOQI guidelines for clinical interpretation. eGFR- Date Value Ref Range Status 11/05/2008 >60 Final P.O.C.T. RESULTS: POC done: Yes, See Lab Tab August 13, [address] PERFORMED: No IV SITE: Ambulatory: A peripheral IV was started in the Right antecubital site with a Angio cath: 22 gauge. POST EXAM PIV STATUS: Discontinued PROCEDURE TYPE: NM INJECT: PET/CT BODY SCAN. 6.4 mCi F18 FDG. No other medications given.. ADMINISTRATION TIME: 1150 PATIENT DISCHARGED TO: Ambulatory patient, left NM department area. A Diagnostic radioactive procedure has taken place, with no further precautions necessary other than routine body substance precautions. More information regarding radiation safety can be found usingKeepios link: [email or web address] SIGNATURE: RT Daniel(R) PATIENT NAME: Mansi Caro DATE: August 13, 2024 TIME: 11:58 AM PAGER/CONTACT #: documented in this encounterGreene [facility]09[facility] Telephone encounter Note * Telephone Encounter - Dulce Maria Gibson RN - 08/05/2024 11:18 AM EDT S: Patient spoke with CAC nurse regarding weakness and fatigue B: Onset of symptoms/concern ongoing A: States she seems to be getting weaker with time. She is now using a walker while a couple of weeks ago she was independent. Could she benefit from physical therapy? States today's blood pressure is 106/74 and yesterdays was 116/67, heart rate 74, yesterday was 80, and oxygen level 99%, [id number]%. States her weight was up 2 pounds from yesterday and will give her lasix 20mg prn per order. Eating and drinking as normal. Bowel as normal with Miralax, urine as normal. States that stock repairer states he thinks her left side pain could be from a hernia. R: advised note will be sent to office and to call back with any further questions or concerns. Patient understands care advice. No further needs at this time. Patient instructed to call backwith new or worsening symptoms. Reason for Disposition [1] Caller requesting NON-URGENT health information AND [2] PCP's office is the best resource Protocols used: Information Only Call - No [id number] [facility] [id number] Miscellaneous Notes* Telephone Encounter - Dulce Maria Gibson RN - 08/05/2024 11:18 AM EDT S: Patient spoke with CAC nurse regarding weakness and fatigue B: Onset of symptoms/concern ongoing A: States she seems to be getting weaker with time. She is now using a walker while a couple of weeks ago she was independent. Could she benefit from physical therapy? States today's blood pressure is 106/74 and yesterdays was 116/67, heart rate 74, yesterday was 80, and oxygen level 99%, [id number]%. States her weight was up 2 pounds from yesterday and will give her lasix 20mg prn per order. Eating and drinking as normal. Bowel as normal with Miralax, urine as normal. States that stock repairer states he thinks her left side pain could be from a hernia. R: advised note will be sent to office and to call back with any further questions or concerns. Patient understands care advice. No further needs at this time. Patient instructed to call backwith new or worsening symptoms. Reason for Disposition [1] Caller requesting NON-URGENT health information AND [2] PCP's office is the best resource Protocols used: Information Only Call - No [id number] documented in this encounterSOhio State Health [id number] Telephone encounter Note* Telephone Encounter - Anna Zarco RN - 08/04/2024 12:52 PM EDT S: Patient , Song, spoke with CAC nurse regarding no improvement on weakness or fatigue B: Onset of symptoms/concern 08/04/24 A: States they wanted to give status update on patient. Song states no improvement of weakness or fatigue after seeing casing splitter or vascular surgeon. States patient will be seeing stock repairer today at 230. Declined triage as they only wanted to give update on patient. R: Song understands care advice that a message will be sent to office as office is currently closed for lunch. No further needs at this time. Patient instructed to call back with new or worsening symptoms. Reason for Disposition [1] Caller requesting NON-URGENT health information AND [2] PCP's office is the best resource Protocols used: Information Only Call - No [id number] [facility] [id number] Miscellaneous Notes* Telephone Encounter - Anna Zarco RN - 08/04/2024 12:52 PM EDT S: Patient , Song, spoke with CAC nurse regarding no improvement on weakness or fatigue B: Onset of symptoms/concern 08/04/24 A: States they wanted to give status update on patient. Song states no improvement of weakness or fatigue after seeing casing splitter or vascular surgeon. States patient will be seeing stock repairer today at 230. Declined triage as they only wanted to give update on patient. R: Song understands care advice that a message will be sent to office as office is currently closed for lunch. No further needs at this time. Patient instructed to call back with new or worsening symptoms. Reason for Disposition [1] Caller requesting NON-URGENT health information AND [2] PCP's office is the best resource Protocols used: Information Only Call - No [id number] documented in this encounterSOhio State Health [id number] History of Present illness Narrative* Yi Caal, RT(R) - 07/21/2024 11:30 AM EDT Radiology Service Progress Note PATIENT NAME: Mansi Caro DATE OF SERVICE: July 21, 2024 TIME: 11:07 AM PATIENT IDENTITY VERIFICATION COMPLETED USING TWO (2) IDENTIFIERS: Name and Date of confirmedby patient verbally. FALL SCREENING: Has the patient had 2 falls in the last year or 1 fall with injury or currently using an Ambulatory Assistive Device (Walker, Cane, Wheelchair, Crutches, etc.)? No PATIENT GENDER DATA: Female. status: : No status: NO. PATIENT RELEVANT IMPLANT DATA REVIEWED: Not Applicable PATIENT PRESENTS WITH AN IMPLANTABLE OR ATTACHED CARDIOLOGY RN: N/A RADIOLOGY DEPARTMENT: CT; Exam(s) Completed: Chest PERIPHERAL IV DATA: Not applicable SIGNED BY: DIONI Mack) July 21, 2024 11:07 AM documented in this encounterGreene [facility] Hospital08-30-2024 NoteHNO ID: [id number] Author: YI CAAL RT(R) Service: ? Author Type: Technologist Type: Progress Notes Filed: 07/21/2024 11:07 Note Text: Radiology Service Progress Note PATIENT NAME: Mansi Caro DATE OF SERVICE: July 21, 2024 TIME: 11:07 AM PATIENT IDENTITY VERIFICATION COMPLETED USING TWO (2) IDENTIFIERS: Name and Date of confirmed by patient verbally. FALL SCREENING: Has the patient had 2 falls in the last year or 1 fall with injury or currently using an Ambulatory Assistive Device (Walker, Cane, Wheelchair, Crutches, etc.)? No PATIENT GENDER DATA: Female. status: : No status: NO. PATIENT RELEVANT IMPLANT DATA REVIEWED: Not Applicable PATIENT PRESENTS WITH AN IMPLANTABLE OR ATTACHED CARDIOLOGY RN: N/A RADIOLOGY DEPARTMENT: CT; Exam(s) Completed: Chest PERIPHERAL IV DATA: Not applicable SIGNED BY: DIONI Mack) July 21, 2024 11:07 [facility] Telephone encounter Note * Telephone Encounter - Deonna Sommer - 07/11/2024 3:20 PM EDT Name of caller: Ashtyn Contact phone number: [phone] Relationship to Patient: [facility] Provider: Dr. Lopez Practice: [facility] Chief Complaint/Reason for Call: Ashtyn from [facility] called in regards to a message they received from the office and they are not sure what this was in regards to. Ashtyn is requesting a call back and they can be reached at #[phone]. Please advise. Best time of day caller can be reached: Any Patient advised that office/PCP has 24-48 business hours to return their call: No [facility] [id number] Miscellaneous Notes* Telephone Encounter - Deonna Sommer - 07/11/2024 3:20 PM EDT Name of caller: Ashtyn Contact phone number: [phone] Relationship to Patient: [facility] Provider: Dr. Lopez Practice: [facility] Chief Complaint/Reason for Call: Ashtyn from [facility] called in regards to a message they received from the office and they are not sure what this was in regards to. Ashtyn is requesting a call back and they can be reached at #[phone]. Please advise. Best time of day caller can be reached: Any Patient advised that office/PCP has 24-48 business hours to return their call: No documented in this encounterSOhio State Health [id number] NoteS: Patient's Song spoke with CAC nurse regarding patient's xray, and referral B: Onset of symptoms/concern today A: Song wants to discuss the result of the patient's xray, and state he with the patient's financial developer and was advised to see a casing splitter. R: Please call Song at his # [phone] to discuss these issues. Patient understands care advice. No further needs at this time. Patient instructed to call back with new or worsening symptoms. Reason for Disposition [1] Follow-up call from patient regarding patient's clinical status AND [2] information urgent Protocols used: PCP Call - No Nvuzuw-QFLEB-SHQrhedNorthwood [facility]08-20-2024 Telephone encounter Note* Telephone Encounter - Bill Deluca RN - 07/11/2024 12:14 PM EDT S: Patient's Song spoke with CAC nurse regarding patient's xray, and referral B: Onset of symptoms/concern today A: Song wants to discuss the result of the patient's xray, and state he with the patient's financial developer and was advised to see a casing splitter. R: Please call Song at his # [phone] to discuss these issues. Patient understands care advice. No further needs at this time. Patient instructed to call back with new or worsening symptoms. Reason for Disposition [1] Follow-up call from patient regarding patient's clinical status AND [2] information urgent Protocols used: PCP Call - No [id number] [facility] [id number] Miscellaneous Notes* Telephone Encounter - Bill Deluca RN - 07/11/2024 12:14 PM EDT S: Patient's Song spoke with CAC nurse regarding patient's xray, and referral B: Onset of symptoms/concern today A: Song wants to discuss the result of the patient's xray, and state he with the patient's financial developer and was advised to see a casing splitter. R: Please call Song at his # [phone] to discuss these issues. Patient understands care advice. No further needs at this time. Patient instructed to call back with new or worsening symptoms. Reason for Disposition [1] Follow-up call from patient regarding patient's clinical status AND [2] information urgent Protocols used: PCP Call - No [id number] documented in this encounterSOhio State Health [id number] [facility]08-07-2024 Telephone encounter Note* Telephone Encounter - Jennifer Woods - 06/28/2024 8:08 AM EDT Name of caller: Song Contact phone number: [phone] Relationship to Patient: Spouse Provider: Practice: Chief Complaint/Reason for Call: Patients Spouse called in to cancel appointment today at 10 am forLab work. Spouse stated he just got home with the Patient from the Emergency Room. Spouse stated the Patient had some labs done in the [facility] and wanted to inform the doctor. Please advise. Best time of day caller can be reached: N/A Patient advised that office/PCP has 24-48 business hours to return their call: N/A [facility] [id number] Miscellaneous Notes* Telephone Encounter - Jennifer Woods - 06/28/2024 8:08 AM EDT Name of caller: Song Contact phone number: [phone] Relationship to Patient: Spouse Provider: Practice: Chief Complaint/Reason for Call: Patients Spouse called in to cancel appointment today at 10 am forLab work. Spouse stated he just got home with the Patient from the Emergency Room. Spouse stated the Patient had some labs done in the [facility] and wanted to inform the doctor. Please advise. Best time of day caller can be reached: N/A Patient advised that office/PCP has 24-48 business hours to return their call: N/A documented in this [facility]06-26-2024 NoteHNO ID: [id number] Author: GHAZALA GUSMAN MD Service: ? Author Type: Physician Type: Progress Notes Filed: 05/17/2024 17:12 Note Text: Rehabilitation Medicine F/u patient May 12, 2023 Last seen June 04, 2022 The patient was seen for f/u today. Recall, the patient is a 68 yo woman with PMH possible baseline CP, anxiety, depression, HTN, HPL, smoker, stroke left MCA 2009 with left M2 thrombus with 2/2 spasticity right HF/hip add/KF, but more in the distal aspects PF and D4/5 toe flexors, less so hip and KFs. She has element of dynamic spasticity with gait with right foot going into PF and flexor toe curling . 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 HEAD BELLHOP CAPTAIN D placed on 05/12/22. Ongoing issues: Feeling loopy with baclofen with dose increase but helped with hand . Was on 10mg tid, just reduced to 5mg bid and 10mg hs. And going to see how reacts. Seen recently by PCP TFTs are going to be checked d/t fatigue Recent dentist and eye doctor visits. She is doing baclofen 5mg qid and abi. 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 Fall 2 years ago and tooth fx- new implants working on over time. ER visit 09/2023 and dx with TIA x 2 H/o ischemic colitis and diverticulitis in about 03/2024- now on daily miralax Had issues with hypokalemia and dehydration with that hosptilzation at [facility] Recent cataract removal b/l No new N/T weakness. Paternal GM had tremors. Current Outpatient Medications Medication Sig baclofen (LIORESAL) 5 mg tablet 1 tab am, midday and 2 tab hs. Do not abruptly stop if at high dose, risk for withdrawal seizures. clonazePAM (KLONOPIN) 1 mg tablet Take 1 mg by mouth daily at bedtime. furosemide (LASIX) 20 mg tablet as needed. spironolactone (ALDACTONE) 25 mg tablet 12.5 mg every other day. traZODone (DESYREL) 50 mg tablet Take 50 mg by mouth as needed. sacubitril-valsartan (ENTRESTO) 24-26 mg tablet Take 1 tablet by mouth twice daily. BABY ASPIRIN ORAL Take 81 mg by mouth every other day. oxybutynin (DITROPAN) 5 mg/5 mL syrup Take 5 mg by mouth every other day. pantoprazole DR (PROTONIX) 40 mg tablet Take 1 tablet by mouth twice daily. metFORMIN (GLUCOPHAGE) 500 mg tablet Take 1 tablet by mouth twice daily. rosuvastatin (CRESTOR) 5 mg ORAL Tab 1 qd No current facility-administered medications for this visit. ALLERGIES Allergen Reactions Lipitor [Atorvastat* Heart racing; 07/04/10 patient states that she had started a lot of medication at this time and the she did not have a true allergic reaction and is willing to rechallenge HERVE MARIN PAST MEDICAL HISTORY Diagnosis Date Anxiety state, unspecified Chronic depressive personality disorder Depression Hyperlipidemia PMH - PAST MEDICAL HISTORY OF ? epilepsy Smoking Stroke (HCC) Unspecified essential hypertension Essential hypertension PAST SURGICAL HISTORY Procedure Laterality Date COLONOSCOPY FLX DX W/COLLJ SPEC WHEN PFRMD 02/21/15 Colonoscopy ERCP DX COLLECTION SPECIMEN BRUSHING/WASHING 11/20/14 Cholangiopancreatography (ERCP) with sphincterotomy and stone removal LAPAROSCOPY SURG CHOLECYSTECTOMY 11/21/14 FAMILY HISTORY Problem Relation Age of Onset Coronary Artery Disease Father Social History Tobacco Use Smoking status: Former Packs/day: 1.50 Years: 45.00 Additional pack years: 0.00 Total pack years: 67.50 Types: Cigarettes Quit date: 12/23/2008 Years since quittin.4 Smokeless tobacco: Never Substance Use Topics Alcohol use: No ROS: GENERAL: Denies fever, chills malaise and weight loss. HEENT: No recent change in vision or hearing. CARDIOVASCULAR: Denies chest pain, history of A-fib, valvular disease, or pacemaker/ICD. RESPIRATORY: Denies SOB, sputum production, and hemoptysis. GI: Denies GI ulcers, inflammatory disease, or liver disease. : Denies change in frequency or urgency, kidney disease, and burning with urination. MUSCULOSKELETAL: see hpi SKIN: Denies rash or itching. PSYCHOLOGICAL: see above NEURO: see hpi ENDOCRINE: Denies diabetes, thyroid disease. HEMATOLOGY/LYMPHOLOGY: Denies cancer, bleeding or clotting disorders, anemia,and DVT's. ALLERGIC/IMMUNOLOGICAL: see hpi On exam: BP 95/58 Pulse 72 Ht 172.7 cm (5' 8) Wt 58.2 kg (128 lb 6.4 oz) SpO2 97% BMI 19.52 kg/m? Alert, and oriented. Language eval notes no dysarthria. present Tremor left hand Spasticity well controlled in the UE/LEs, small end ROM catch on the hamstrings. IMPRESSION and PLAN: 69 yo woman with PMH anxiety, depression, HTN, HPL, smoker, stroke with spasticity right HF/hip add/KF, but more in the distal aspects PF and D4/5 toe flexors, less so hip and KFs. She had element of dynamic spasticity with gait wit (more content not included)...[facility]06-26-2024 History of Present illness Narrative* Ghazala Gusman MD - 05/17/2024 2:26 PM EDT Rehabilitation Medicine F/u patient May 12, 2023 Last seen June 04, 2022 The patient was seen for f/u today. Recall, the patient is a 68 yo woman with PMH possible baseline CP, anxiety, depression, HTN, HPL, smoker, stroke left MCA 2008 with left M2 thrombus with 2/2 spasticity right HF/hip add/KF, but morein the distal aspects PF and D4/5 toe flexors, less so hip and KFs. She has element of dynamic spasticity with gait with right foot going into PF and flexor toe curling . 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 HEAD BELLHOP CAPTAIN D placed on 05/12/22. Ongoing issues: Feeling loopy with baclofen with dose increase but helped with hand . Was on 10mg tid, just reduced to 5mg bid and 10mg hs. And going to see how reacts. Seen recently by PCP TFTs are going to be checked d/t fatigue Recent dentist and eye doctor visits. She is doing baclofen 5mg qid and abi. 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 Fall 2 years ago and tooth fx- new implants working on over time. ER visit 09/2023 and dx with TIA x 2 H/o ischemic colitis and diverticulitis in about 03/2024- now on daily miralax Had issues with hypokalemia and dehydration with that hosptilzation at [facility] Recent cataract removal b/l No new N/T weakness. Paternal GM had tremors. Current Outpatient Medications Medication Sig baclofen (LIORESAL) 5 mg tablet 1 tab am, midday and 2 tab hs. Do not abruptly stop if at high dose, risk for withdrawal seizures. clonazePAM (KLONOPIN) 1 mg tablet Take 1 mg by mouth daily at bedtime. furosemide (LASIX) 20 mg tablet as needed. spironolactone (ALDACTONE) 25 mg tablet 12.5 mg every other day. traZODone (DESYREL) 50 mg tablet Take 50 mg by mouth as needed. sacubitril-valsartan (ENTRESTO) 24-26 mg tablet Take 1 tablet by mouth twice daily. BABY ASPIRIN ORAL Take 81 mg by mouth every other day. oxybutynin (DITROPAN) 5 mg/5 mL syrup Take 5 mg by mouth every other day. pantoprazole DR (PROTONIX) 40 mg tablet Take 1 tablet by mouth twice daily. metFORMIN (GLUCOPHAGE) 500 mg tablet Take 1 tablet by mouth twice daily. rosuvastatin (CRESTOR) 5 mg ORAL Tab 1 qd No current facility-administered medications for this visit. ALLERGIES Allergen Reactions Lipitor [Atorvastat* Heart racing; 07/04/10 patient states that she had started a lot of medication at this time and the she did not have a true allergic reaction and is willing to rechallenge HERVE RN PAST MEDICAL HISTORY Diagnosis Date Anxiety state, unspecified Chronic depressive personality disorder Depression Hyperlipidemia PMH - PAST MEDICAL HISTORY OF ? epilepsy Smoking Stroke (HCC) Unspecified essential hypertension Essential hypertension PAST SURGICAL HISTORY Procedure Laterality Date COLONOSCOPY FLX DX W/COLLJ SPEC WHEN PFRMD 02/21/15 Colonoscopy ERCP DX COLLECTION SPECIMEN BRUSHING/WASHING 11/20/14 Cholangiopancreatography (ERCP) with sphincterotomy and stone removal LAPAROSCOPY SURG CHOLECYSTECTOMY 11/21/14 FAMILY HISTORY Problem Relation Age of Onset Coronary Artery Disease Father Social History Tobacco Use Smoking status: Former Packs/day: 1.50 Years: 45.00 Additional pack years: 0.00 Total pack years: 67.50 Types: Cigarettes Quit date: 12/23/2008 Years since quittin.4 Smokeless tobacco: Never Substance Use Topics Alcohol use: No ROS: GENERAL: Denies fever, chills malaise and weight loss. HEENT: No recent change in vision or hearing. CARDIOVASCULAR: Denies chest pain, history of A-fib, valvular disease, or pacemaker/ICD. RESPIRATORY: Denies SOB, sputum production, and hemoptysis. GI: Denies GI ulcers, inflammatory disease, or liver disease. : Denies change in frequency or urgency, kidney disease, and burning with urination. MUSCULOSKELETAL: see hpi SKIN: Denies rash or itching. PSYCHOLOGICAL: see above NEURO: see hpi ENDOCRINE: Denies diabetes, thyroid disease. HEMATOLOGY/LYMPHOLOGY: Denies cancer, bleeding or clotting disorders, anemia,and DVT's. ALLERGIC/IMMUNOLOGICAL: see hpi On exam: BP 95/58 Pulse 72 Ht 172.7 cm (5' 8) Wt 58.2 kg (128 lb 6.4 oz) SpO2 97% BMI 19.52 kg/m Alert, and oriented. Language eval notes no dysarthria. present Tremor left hand Spasticity well controlled in the UE/LEs, small end ROM catch on the hamstrings. IMPRESSION and PLAN: 69 yo woman with PMH anxiety, depression, HTN, HPL, smoker, stroke with spasticity right HF/hip add/KF, but more in the distal aspects PF and D4/5 toe flexors, less so hip and KFs. She had element ofdynamic spasticity with gait with right foot going into PF and flexor toe curling - this much better baclofen abi and controlling spasticity at 5mg qid, loopy at higher doses. 1 year supply since dosing stable. F/u 12 months Patient understands above plan; questions asked and answered. Medication options, including side effects, were discussed in detail. Education was given regarding signs and symptoms that would indicate a serious change in condition, and they were instructed to seek care immediately should these arise. Patient agrees to plan as noted above. These notes are used for the purpose of medical documentation and that for use for other medical providers. Jargon expressed here is intentioned for use under this context. Ghazala Gusman MD I spent a total of 30 minutes on the date of the service which included preparing to see the patient, [id number]-[id number] patient care, completing clinical documentation, performing a medically appropriate examination, counseling and educating the patient/family/caregiver, and ordering medications, tests,or procedures. documented in this encounterGreene Memorial Hospital04-22-2024 Discharge summary Author Alonso Marte [facility] March 13, 2024 5:55pm Note Date/Time March 13, 2024 5:5 0pm [facility] Medical Records Department [address] [place] [address] Discharge Summary 03/13/24 1747 MR#: [id number] Acct: [id number] Name: MANSI CARO Rep #:[id number] : 1955 69 From: Alonso Marte MD PCP: Dr. Adrienne Byers DO Status:ADM IN Location: [address] Date of Admission: 02/29/24 Primary Care Physician: Dr. Adrienne Byers DO Reason For Visit: COLITIS Diagnosis Discharge Diagnosis (1) Debility: Status: Acute Code(s): R53.81 - Other malaise (2) Colitis: Status: Resolved Code(s): K52.9 - Noninfective gastroenteritis and colitis, unspecified (3) Gastrointestinal bleeding, lower: Status: Resolved Code(s): K92.2 - Gastrointestinal hemorrhage, unspecified (4) Acute kidney injury: Status: Acute Code(s): N17.9 - Acute kidney failure, unspecified (5) Constipation: Status: Inactive Code(s): K59.00 - Constipation, unspecified (6) Clostridium difficile colitis: Status: Acute Code(s): A04.72 - Enterocolitis due to Clostridium difficile, not specified as recurrent (7) CVA (cerebral vascular accident): Status: Resolved Code(s): I63.9 - Cerebral infarction, unspecified (8) HLD (hyperlipidemia): Status: Chronic Code(s): E78.5 - Hyperlipidemia, unspecified (9) Muscle spasm: Status: Acute Code(s): M62.838 - Other muscle spasm (10) GERD (gastroesophageal reflux disease): Status: Acute Code(s): K21.9 - Gastro-esophageal reflux disease without esophagitis (11) Vitamin D deficiency: Status: Acute Code(s): E55.9 - Vitamin D deficiency, unspecified (12) Depression: Status: Acute Code(s): F32.A - Depression, unspecified (13) Anxiety: Status: Acute Code(s): F41.9 - Anxiety disorder, unspecified (14) Diabetes mellitus: Status: Acute Code(s): E11.9 - Type 2 diabetes mellitus without complications (15) Heart failure with reduced ejection fraction: Status: Acute Code(s): I50.20 - Unspecified systolic (congestive) heart failure (16) Overactive bladder: Status: Acute Code(s): N32.81 - Overactive bladder (17) Insomnia: Status: Acute Code(s): G47.00 - Insomnia, unspecified (18) Leg cramp: Status: Acute Code(s): R25.2 - Cramp and spasm Plan 69 year old female with below past medical history hospitalized for colitis, rectal bleeding, SUJATHA, c.diff, complicated by electrolyte abnormalities, admittedto TCU with debility, here for rehabilitation, strengthening, prior to dsichargehome with . * Debility - PT/OT. * Pain - Tylenol 1000mg q6 prn pain (1-10). * Bowel - Miralax 17gm daily, Dulcolax 5mg bid. * Adult immunization - Administer pneumonia vaccine, covid vaccine, flu vaccine as appropriate. * DVT prophylaxis - Hold, recent bleed, on dual antiplatelet therapy. * Stroke - Aspirin 81mg daily, Plavix 75mg daily. * Hyperlipidemia - Atorvastatin 40mg qhs. * Muscle spasm - Baclofen 5mg bid. * Colitis (c. diff) - Budesonide 9mg daily, Vancomycin 125mg q6 x 10 days. * Calcium deficiency - Calcium D bidcm. * Vitamin D deficiency - D3 25mcg daily. * Insomnia - Clonazepam 1mg qhs, Trazodone 50mg qhs prn, stable chronic long t erm use, GDR not recommended. * Abdominal cramping - Dicyclomine 20mg tidac. * HFrEF - Metoprolol succinate 15mg daily, Entresto 24/26mg 1/2 tablet bid, Jardiance 10mg daily, Aldactone 12.5mg mwf. * Nutrition - Ensure 120ml 4x/day, MVI daily. * Depression - Escitalopram 10mg daily, stable chronic longterm use, GDR not recommended. * Diabetes Mellitus II - Metformin XR 500mg daily. * GERD - Pantoprazole 40mg bid. * Overactive bladder - Tolterodine 2mg daily. Medications at Discharge Home Medications clonazepam 1 mg tablet 1 mg PO QHS anxiety 11/18/14 multivitamin with folic acid 400 mcg tablet (Thera) 1 tab PO DAILY vitamin 11/18/14 trazodone 50 mg tablet 50 mg PO DAILY PRN Anxiety 11/18/14 empagliflozin 10 mg tablet (Jardiance) 10 mg PO DAILY diabetes 09/28/23 metoprolol succinate 25 mg tablet,extended release 24 hr 12.5 mg PO DAILY blood pressure 09/28/23 cholecalciferol (vitamin D3) 25 mcg (1,000 unit) tablet 50 mcg (2 x 25 mcg (1,000 unit)) PO QHS supplement #0 tabs 09/30/23 aspirin 81 mg tablet,delayed release 81 mg PO DAILY heart 10/01/23 spironolactone 25 mg tablet 12.5 mg PO MOWEFR FLUID 10/07/23 baclofen 5 mg tablet 5 mg PO BID muscle spasms 02/21/24 calcium carbonate 600 mg-vitamin D3 10 mcg (400 unit) tablet 1 tab PO BID supplement 02/21/24 escitalopram oxalate 10 mg tablet 10 mg PO DAILY mood 02/21/24 metformin 500 mg tablet,extended release 24 hr 500 mg PO DAILY blood sugars 02/21/24 oxybutynin chloride 5 mg tablet,extended release 24 hr 5 mg PO DAILY bladder 02/21/24 rosuvastatin 20 mg tablet 20 mg PO QHS cholesterol 02/21/24 sacubitril 24 mg-valsartan 26 mg tablet (Entresto) 0.5 tab PO BID heart 02/21/24 acetaminophen 500 mg tablet 1,000 mg (2 x 500 mg) PO Q6H PRN PRN Pain Score 1- 10#0 tabs 03/13/24 ascorbic acid (vitamin C) 500 mg tablet 500 mg PO 1000 30 days #30 tabs 03/13/24 budesonide 3 mg capsule,delayed,extended release 9 mg (3 x 3 mg) PO DAILY 30 days #90 ea 03/13/24 clopidogrel 75 mg tablet 75 mg PO DAILY #0 tabs 03/13/24 dicyclomine 10 mg capsule 20 mg (2 x 10 mg) PO TIDAC 30 days #180 caps 03/13/24 pantoprazole 40 mg tablet,delayed release 40 mg PO BID 30 days #60 tabs 03/13/24 polysaccharide iron complex 150 mg iron capsule (Ferrex) 150 mg PO DAILY 30 days#30 caps 03/13/24 potassium chloride 20 mEq tablet,extended release(part/cryst) 20 meq PO BIDCM 30days #60 tabs 03/13/24 prochlorperazine maleate 5 mg tablet 10 mg (2 x 5 mg) PO Q4H PRN PRN Nausea/Vomiting 30 days #120 tabs 03/13/24 Hospital Course Operations None Procedures None Summary of Care Provided Minutes Spent on Discharge: 35 Hospital Course: 69 year old female with below past medical history hospitalized for colitis, rectal bleeding, SUJATHA, c.diff, complicated by electrolyte abnormalities, admittedto TCU with debility, here for rehabilitation, strengthening, prior to dischargehome with . Discharge home with 03/15/2024, [facility] PT/OT/ST/SN. Physical Exam Const alert General Appearance: cooperative HEENT normocephalic Eyes PERRL and EOMs intact bilaterally Neck supple, no JVD and no carotid bruits Resp normal respiratory effort, normal air movement and clear to auscultation bilaterally Cardio regular rate and regular rhythm GI normal to inspection, nondistended, normoactive bowel sounds, non-tender and non-distended Extremity normal capillary refill General Extremity: Negative for edema Skin no rashes or lesions noted General Skin Exam: no breakdown Psych affect normal Appearance: appropriate Weight / BMI Weight Weight: 60.645 kg Body Mass Index (BMI) 20.3 ABG / Lab / Microbiology Data 03/08/24 05:17 03/08/24 05:17 Laboratory: Laboratory Results - last 24 hr 03/13/24 06:04: POC Glucose 101 D/C Instructions Discharge Diet: No restrictions Discharge Activity: Return to Normal Activity, May Shower and Use Walker Weight Bearing Status: Weight bearing as tolerated Call your doctor if you observe: Fever of 101 or Higher, Inability to urinate, Inability to have a bowel movement, Shortness of breath, Dizziness, Fainting spells, Swelling in the ankles, Chest pain and Uncontrolled pain Additional Instructions: Discharge home with 03/15/2024, [facility] PT/OT/ST/SN. Please Follow Up With: Shan Lockett, DO When: 4 weeks. Meaningful Use Info Meaningful Use Meaningful Use Diagnoses (Choose all that apply): None applicable Ischemic Stroke Statin Dosing Therapy Reference: STATIN DOSE THERAPY REFERENCE: * Patients > 75 years receive moderate or high dose statin therapy. * Patients 75 years or YOUNGER should receive HIGH intensity statin dose unless contraindicated. You will be required to document reason for non-treatment if statin daily dose does not meet guidelines. HIGH DOSE STATIN THERAPY DAILY Atorvastatin > than or = to 40 mg Rosuvastatin > than or = to 20 mg Amlodipine + Atorvastatin > than or = to 2.5/40 mg Ezetimibe + Simvastatin 10/80 mg Simvastatin 80mg Discharge Plan Admission Admit Date/Time: 02/29/24 13:20 Primary Reason for Your Visit: Debility. Attending Provider: Alonso Marte Chi Primary Care Provider: Adrienne Byers Instructions Additional Instructions / Restrictions: Discharge home with 03/15/2024, [facility] PT/OT/ST/SN. Discharge Orders/Prescriptions Prescriptions: New acetaminophen 500 mg Tablet 1,000 mg PO Q6H PRN PRN (Reason: Pain Score 1-10) Qty: 0 0RF ascorbic acid (vitamin C) 500 mg Tablet 500 mg PO 1000 30 Days Qty: 30 0RF pantoprazole 40 mg Tablet,Delayed Release (Dr/Ec) 40 mg PO BID 30 Days Qty: 60 0RF budesonide 3 mg Capsule,Delayed,Extend.Release 9 mg PO DAILY 30 Days Qty: 90 0RF dicyclomine 10 mg Capsule 20 mg PO TIDAC 30 Days Qty: 180 0RF polysaccharide iron complex [Ferrex 150] 150 mg iron Capsule 150 mg PO DAILY 30 Days Qty: 30 0RF clopidogrel 75 mg Tablet 75 mg PO DAILY Qty: 0 0RF prochlorperazine maleate 5 mg Tablet 10 mg PO Q4H PRN PRN (Reason: Nausea/Vomiting) 30 Days Qty: 120 0RF potassium chloride 20 mEq Tablet,Er Particles/Crystals 20 meq PO BIDCM 30 Days Qty: 60 0RF Continued trazodone 50 MG tablet 50 mg PO DAILY PRN (Reason: Anxiety) clonazepam 1 MG tablet 1 mg PO QHS multivitamin with folic acid [Thera] 1 TABLET tablet 1 tab PO DAILY Hold Instructions: Pt is ill Jardiance 10 mg tablet 10 mg PO DAILY metoprolol succinate 25 mg tablet extended release 24 hr 12.5 mg PO DAILY cholecalciferol (vitamin D3) 25 mcg (1,000 unit) Tablet 50 mcg PO QHS Qty: 0 0RF Hold Instructions: Pt is ill aspirin 81 mg tablet,delayed release (DR/EC) 81 mg PO DAILY Hold Instructions: Hold for 3 days spironolactone 25 mg tablet 12.5 mg PO MOWEFR oxybutynin chloride 5 mg tablet extended release 24hr 5 mg PO DAILY metformin 500 mg tablet extended release 24 hr 500 mg PO DAILY Hold Instructions: Hold for 1 week escitalopram oxalate 10 mg tablet 10 mg PO DAILY rosuvastatin 20 mg tablet 20 mg PO QHS calcium carbonate-vitamin D3 600 mg-10 mcg (400 unit) tablet 1 tab PO BID Hold Instructions: Hold for 1 week Entresto 24-26 mg tablet 0.5 tab PO BID baclofen 5 mg tablet 5 mg PO BID Patient Comments: PLEASE SEE ATTACHED FOR DETAILED DIRECTIONS Discontinued citalopram 20 MG tablet 20 mg PO QHS clopidogrel 75 MG tablet 1 tab PO QHS pantoprazole 40 MG tablet 40 mg PO BID bisacodyl 5 mg Tablet,Delayed Release (Dr/Ec) 5 mg PO BID Qty: 0 0RF Rx Instructions: Hold if more than 1 bowel movement per day acetaminophen 325 mg Tablet 650 mg PO Q4H PRN PRN (Reason: Fever, pain -08/31) Qty: 0 0RF budesonide 3 mg Capsule,Delayed,Extend.Release 9 mg PO DAILY Qty: 0 0RF dicyclomine 10 mg Capsule 20 mg PO TIDAC Qty: 0 0RF vancomycin [Firvanq] 25 mg/mL Recon Soln 125 mg PO Q6 10 Days Qty: 200 0RF polyethylene glycol 3350 [Miralax] 17 gram/dose powder 17 g PO DAILY 30 Days Qty: 510 0RF Rx Instructions: Hold if more than 1 bowel moods per day Referrals / Follow Up: Adrienne Byers DO [Primary Care Provider] - 03/27/24 3:00 pm Disposition Disposition (needs filled in before D/C Order can be placed): Home Health Service 03/13/24 1839 <Electronically signed by Alonso Marte MD> Cosigner Signature (if applicable): CC: Dr. Adrienne Byers DO; Dr. Alonso Marte MD~ Signed [facility] Work Phone: 1(760) 319-431704-10-2024 Progress note Author Alonso Marte [facility] March 01, 2024 4:01pm Note Date/Time March 01, 2024 2:[address] [facility] Medical Records Department [address] [place] [address] Progress Note - Pharmacy 03/01/24 1452 MR#: [id number] Acct: [id number] Name: MANSI CARO Rep #:[id number] : 1955 69 From: Carlotta Singletary PCP: Dr. Adrienne Byers, DO Status:ADM IN Location: [place] [address] Documented by User: Carlotta Singletary 03/01/24 15:37 TCU RX Drug Regimen Review Subjective/Objective Subjective/Objective: Subjective: TCU Admission. 69 YOF presented to the ER with abdominal pain. Hospitalized for colitis, rectal bleeding, SUJATHA, c.diff, complicated by electrolyte abnormalities. Admitted to TCU with debility for strengthening and rehabilitation. Objective: Allergies No Known Allergies Allergy (Verified 02/21/24 14:04) Current Medications Generic Name Dose Route Start Last Admin Trade Name Freq PRN Reason Stop Dose Admin Acetaminophen 1,000 mg 02/29/24 20:01 Acetaminophen 500 Mg Tablet PO Q6H PRN PRN Pain Score 1-10 Aspirin 81 mg 03/04/24 08:00 Aspirin E.C. 81 Mg Tablet PO DAILYCM VERONA Atorvastatin Calcium 40 mg 02/29/24 22:00 02/29/24 22:01 Atorvastatin Calcium 40 Mg Tablet PO 40 mg QHS [facility] Administration Baclofen 5 mg 02/29/24 22:00 03/01/24 08:53 Baclofen 10 Mg Tablet PO 5 mg BID [facility] Administration Bisacodyl 5 mg 03/01/24 07:50 Bisacodyl 5 Mg Tablet PO BID PRN Constipation Budesonide 9 mg 03/01/24 10:00 03/01/24 08:47 Budesonide 3 Mg Capsule.Ec PO 9 mg DAILY [facility] Administration Calcium/Vitamin D 1 tablet 02/29/24 17:00 03/01/24 08:49 Calcium Carb/Vitamin D 1 Tablet Tablet PO 1 tablet BIDCM [facility] Administration Cholecalciferol 50 mcg 02/29/24 22:00 02/29/24 22:02 Cholecalciferol (Vit D3) 25 Mcg Tablet (1,000 Units) PO 50 mcg QHS [facility] Administration Clonazepam 1 mg 02/29/24 22:00 02/29/24 21:57 Clonazepam 1 Mg Tablet PO 1 mg QHS [facility] Administration Clopidogrel Bisulfate 75 mg 03/01/24 10:00 03/01/24 08:53 Clopidogrel Bisulfate 75 Mg Tablet PO 75 mg DAILY [facility] Administration Dicyclomine HCl 20 mg 02/29/24 16:45 03/01/24 11:27 Dicyclomine 10 Mg Capsule PO 20 mg TIDAC [facility] Administration Empagliflozin 10 mg 03/01/24 10:00 03/01/24 08:51 Empagliflozin 10 Mg Tablet PO 10 mg DAILY [facility] Administration Escitalopram Oxalate 10 mg 03/01/24 10:00 03/01/24 08:54 Escitalopram Oxalate 10 Mg Tablet PO 10 mg DAILY [facility] Administration Metformin HCl 500 mg 03/07/24 08:00 Met[facility] (Xr) [facility] Metoprolol Succinate 12.5 mg 03/01/24 10:00 03/01/24 08:52 Metoprolol(Xl)Succ 25 Mg Tablet PO 12.5 mg DAILY [facility] Administration Protocol Multivitamins 1 tablet 03/01/24 08:00 03/01/24 08:49 Multivitamins,Therapeutic Tablet [facility] Administration Nutritional Formula (Lactose Free) 120 ml 03/01/24 12:45 03/01/24 13:39 Glucerna Shake 120 Ml Liquid PO Not Given TIDCM [facility] Pantoprazole Sodium 40 mg 02/29/24 22:00 03/01/24 08:52 Pantoprazole Sodium 40 Mg Tablet PO 40 mg BID [facility] Administration Polyethylene Glycol 17 gm 03/01/24 10:00 03/01/24 08:48 Polyethylene Glycol 3350 17 Gm Packet PO 17 gm DAILY [facility] Administration Potassium Chloride 20 meq 03/01/24 08:00 03/01/24 09:08 Potassium Chloride Oral Tablet 20 Meq PO 20 meq BIDCM [facility] Administration Prochlorperazine Maleate 10 mg 03/01/24 13:07 03/01/24 13:38 Prochlorperazine 5 Mg Tablet PO 10 mg Q4H PRN PRN Administration NAUSEA/VOMITING Sacubitril/Valsartan 0.5 each 02/29/24 22:00 03/01/24 08:50 Sacubitril/Valsartan 24/26 Mg Tablet PO 0.5 each BID [facility] Administration Sodium Chloride 10 - 40 ml 02/29/24 14:24 0.9 % Nacl (Sterile) Posiflush 10 Ml IV UD PRN Port access or dressing change Sodium Chloride 10 - 40 ml 02/29/24 14:24 02/29/24 22:03 0.9% Saline Lock 10 Ml Syringe IV 10 ml UD PRN Administration Closed End PICC Flush Spironolactone 12.5 mg 03/01/24 10:00 03/01/24 08:53 Spironolactone 25 Mg Tablet PO 12.5 mg MOWEFR [facility] Administration Protocol Tolterodine Tartrate 2 mg 03/01/24 10:00 03/01/24 08:52 Tolterodine Tartrate 2 Mg Cap.Sa PO 2 mg DAILY [facility] Administration Trazodone HCl 50 mg 02/29/24 20:01 Trazodone 50 Mg Tablet PO QHS PRN INSOMNIA Tuberculin PPD 0.1 ml 03/08/24 10:00 Tuberculin,Purif.Prot.Deriv. 50 Tu/Ml Vial ID 03/08/24 10:01 X1 ONE Vancomycin HCl 125 mg 02/29/24 18:00 03/01/24 11:32 Vancomycin 125 Mg/5 Ml Susp Po.Syringe PO 03/10/24 18:01 125 mg Q6 [facility] Administration Problem List (Updated 02/29/24 @ 19:[address] Alonso Marte MD) Leg cramp (Acute) Insomnia (Acute) Heart failure with reduced ejection fraction (Acute) CVA (cerebral vascular accident) (Acute) Clostridium difficile colitis (Acute) Acute kidney injury (Acute) Gastrointestinal bleeding, lower (Acute) Colitis (Acute) Overactive bladder (Acute) Muscle spasm (Acute) GERD (gastroesophageal reflux disease) (Acute) Vitamin D deficiency (Acute) Depression (Acute) Debility (Acute) Anxiety (Acute) HLD (hyperlipidemia) (Chronic) Diabetes mellitus (Acute) Vital Signs Temp Pulse Resp BP Pulse Ox O2 Del Method 98.2 F 62 18 128/45 H 95 Room Air 02/29/24 13:31 03/01/24 09:19 03/01/24 05:56 03/01/24 09:19 03/01/24 05:56 03/01/24 05:56 Oxygen Delivery Method Room Air Weight: 66.315 kg Body Mass Index (BMI) 22.2 Sodium 144 mmol/L (136-145) 03/01/24 05:19 Potassium 3.2 mmol/L (3.5-5.1) L 03/01/24 05:19 Chloride 114 mmol/L (98-107) H 03/01/24 05:19 Carbon Dioxide 28.0 mmol/L (21.0-32.0) 03/01/24 05:19 Anion Gap 2 (5-15) L 03/01/24 05:19 BUN 5 mg/dL (7-18) L 03/01/24 05:19 Creatinine 0.72 mg/dL (0.55-1.02) 03/01/24 05:19 Est GFR (MDRD) Af Amer 103 mL/min (>60) 03/01/24 05:19 Est GFR (MDRD) Non-Af 85 mL/min (>60) 03/01/24 05:19 BUN/Creatinine Ratio 7.0 RATIO (10-20) L 03/01/24 05:19 Glucose 163 mg/dL (74-106) H 03/01/24 05:19 Assessment/Plan: 1. Pain: acetaminophen 1000mg PO Q6H PRN pain 1-10. Resident has not had any PRNdoses. Please continue to monitor for increased pain and PRN usage. 2. Bowel: Miralax 17gm PO daily and bisacodyl 5mg PO BID PRN constipation. No PRN doses have been given. Please continue to monitor for constipation, diarrheaand PRN usage. Last documented bowel movement 02/27. 3. Stroke: aspirin 81mg PO daily and clopidogrel 75mg PO daily. Please continue to monitor for S/S of bleeding and hemoglobin (last 8.2g/dL). 4. Colitis (C. diff)/abdominal cramping: budesonide 9mg PO daily, vancomycin 125mg PO Q6 thru 03/10/24 and dicyclomine 20mg PO TIDAC. Please continue to monitor for diarrhea and abdominal pain. 5. HFrEF: metoprolol succinate 12.5mg PO daily, Entresto 24/26mg 0.5T PO BID, empagliflozin 10mg PO daily and spironolactone 12.5mg PO MWF. Please continue tomonitor HR (last 62), BP (last 128/45), renal function, eGFR (last 85 mL/min), potassium (last 3.2mmol/L). 6. Hyperlipidemia: atorvastatin 40mg PO QHS. Please continue to monitor LFTs (last 02/21/24), lipid panel (last 09/29/23) and muscle pain. 7. Diabetes mellitus II: metformin XR 500mg PO daily. Please continue to monitorGFR, diarrhea, hemoglobin A1c (last 7% 02/22/24) and glucose (last 141mg/dL). 8. GERD: pantoprazole 40mg PO BID. Please continue to monitor for S/S of GERD, diarrhea (BEERs medication) and magnesium. 9. Overactive bladder: tolterodine 2mg PO daily. Please continue to monitor for S/S of overactive bladder, constipation and dementia/delirium (BEERs medication). 10. Muscle spasm: baclofen 5mg PO BID. Please continue to monitor for muscle spasms, weakness and drowsiness. 11. Calcium/vitamin D deficiency, overall nutrition: calcium/vitamin D 1T PO BIDCM, cholecalciferol 50mcg PO daily and multivitamin 1T PO DAILYCM. Please consider ordering a vitamin D level as there is no level in the chart. Thanks. Please continue to monitor calcium (last 7.7mg/dL). 12. Nausea: prochlorperazine 10mg PO Q4H PRN nausea/vomiting. Resident has had 1dose so far. Please continue to monitor for nausea, vomiting and PRN usage. 13. Hypokalemia (based on K=3.2mmol/L): potassium chloride 20mEq PO BIDCM. Please continue to monitor potassium levels. Assessment/Plan for indications treated with psychotropic medications: 1. Insomnia: clonazepam 1mg PO QHS and trazodone 50mg PO QHS PRN insomnia. Please see physician note regarding GDR. No PRN doses have been given. Please continue to monitor dementia/delirium (BEERs medications) and falls/fractures (BEERs medication). 2. Depression: escitalopram 10mg PO daily. Please see physician note regarding GDR. Please continue to monitor for suicidal ideation (black box warning), falls/fractures (BEERs medication) and sodium (last 144mmol/L). Medical chart and medication regimen reviewed. The following medication irregularities or issues were identified: 1. Calcium/vitamin D 1T PO BIDCM, cholecalciferol 50mcg PO daily. Please consider ordering a vitamin D level as there is no level in the chart. Thanks. Date Date of Note:: 03/01/24 Documented by User: Dr. Alonso Marte MD 03/01/24 16:01 [facility] RX Drug Regimen Review Provider Comments Provider responsibility Provider Comments to Recommendations by Pharmacy: Agree 03/01/24 1537 <Electronically signed by Carlotta Singletary> Carlotta Singeltary Cosigner Signature (if applicable): 03/01/24 1601 <Electronically signed by Alonso Marte MD> CC: ~ Signed [facility] Work Phone: 1(730) 216-842804-09-2024 History and physical note Author [facility] February 29, 2024 8:00pm Note Date/Time February 29, 2024 7:[address] [facility] Medical Records Department [address] [place] [address] History & Physical Exam 02/29/241933 MR#: [id number] Acct: [id number] Name: MANSI CARO Rep #:[id number] : 1955 69 From: Alonso Marte MD PCP: Dr. Adrienne Byers, Status:ADM IN Location: [place] [address] HPI - General General Date of Admission: 02/29/24 Date of Service: 02/29/24 Chief Complaint: Here for rehabilitation. HPI Narrative 02/21/2024 MANSI CARO, is a 69 Female who presents to [facility] ED with abdominal pain. Abdominal pain, nausea, vomiting, diarrhea worse over several days. CT 3 days prior showed constipation, ExLax given at home. Had large BM, now diarrhea, BM red. Diffuse cramping, periumbilical pain, worse with eating. Chills. WBC 20.5, Hemoglobin 12.2, BUN 31, Creatinine 2.08, Lactate 2.3. UA negative. CT abdomen/pelvis shows colitis, left renal mass. IV fluids, Morphine, Zofran, Unasyn given. 02/21/2024 Admit to [facility]. IV antibiotics, consult GI for colitis. Repeat CT left renal mass showed left renal cyst. 02/22/2024 Abdominal pain, Blood pressure 80 systolic, negative rectal bleeding. Hold Metoprolol, give IV fluids for low blood pressure. IV fluids for SUJATHA. 02/22/2024 Dr. Lockett colonoscopy showed rectal prolapse, diverticulosis, ischemiccolitis. 02/23/2024 Abdominal pain. On Oral diet. Ischemic colitis 2/2 severe constipation.. 02/24/2024 Abdominal pain with eating. Hold Entresto 2/2 low blood pressure, resume Metoprolol. 02/25/2024 Weak, oxygen 2 liters per nasal cannula, Fever. Chest X-ray showed pneumonia, Unaisyn 3gm iv q8, Zithromax 500mg iv q24. PT/OT SNF. 02/26/2024 Lower abdominal pain, diarrhea, fever. WBC decreased to 13.1, K 2.7. CT chest/abdomen/pelvis. Vancomycin, Zosyn, Azithromycin for colitis/fever after panculture. Chest X-ray LLL infiltrate. 02/27/2024 Abdominal pain improved to 6-[address] shows diffuse colitis, continue Vancomycin/Zosyn, WBC 6. IV fluids. Consider diuresis for bilateral pleural effusions. 02/28/2024 Zosyn IV, Vancomycin PO for colitis. Replace hypokalemia, hypomagnesemia, hypophosphatemia. C. Diff PCR positive, toxin negative. Diarrhea improved, decreased cramping on dicyclomine. Budesonide for colitis. 02/29/2024 Admit to TCU with debility, here for rehabilitation, strengthening, prior to discharge home with . [facility] Medical History (Updated 02/29/24 @ 19:[address] Alonso Marte MD) Anxiety and depression AV node dysfunction Cardiac resynchronization therapy defibrillator ([employer] CAPTAIN-D) in place Cerebral palsy Congestive heart failure (CHF) Coronary artery disease CVA (cerebral vascular accident) Diabetes mellitus Former smoker Heart failure with reduced ejection fraction High cholesterol Hyperlipidemia Hypertension ICD (implantable cardioverter-defibrillator) in place Insomnia Ischemic cardiomyopathy Myocarditis Pacemaker PFO (patent foramen ovale) Presence of biventricular implantable cardioverter-defibrillator Restless legs Transient ischemic attack Ulcer Home Medications citalopram 20 mg tablet 20 mg PO QHS depression 11/18/14 [History Last Taken 10/06/23] clonazepam 1 mg tablet 1 mg PO QHS anxiety 11/18/14 [History Last Taken 10/06/23] multivitamin with folic acid 400 mcg tablet (Thera) 1 tab PO DAILY vitamin 11/18/14 [History Last Taken 10/07/23] trazodone 50 mg tablet 50 mg PO DAILY PRN Anxiety 11/18/14 [History Last Taken 10/06/23] clopidogrel 75 mg tablet 1 tab PO QHS anti platelet 05/18/16 [History Last Taken 10/06/23] empagliflozin 10 mg tablet (Jardiance) 10 mg PO DAILY diabetes 09/28/23 [History Last Taken 10/07/23] metoprolol succinate 25 mg tablet,extended release 24 hr 12.5 mg PO DAILY blood pressure 09/28/23 [History Last Taken 10/07/23] pantoprazole 40 mg tablet,delayed release 40 mg PO BID stomach acid 09/28/23 [History Last Taken 10/07/23] cholecalciferol (vitamin D3) 25 mcg (1,000 unit) tablet 50 mcg (2 x 25 mcg (1,000 unit)) PO QHS supplement #0 tabs 09/30/23 [Rx Last Taken 10/06/23] aspirin 81 mg tablet,delayed release 81 mg PO DAILY heart 10/01/23 [History Last Taken 10/07/23] spironolactone 25 mg tablet 12.5 mg PO MOWEFR FLUID 10/07/23 [History Last Taken 10/06/23] baclofen 5 mg tablet 5 mg PO BID muscle spasms 02/21/24 [History Last Taken Unknown] calcium carbonate 600 mg-vitamin D3 10 mcg (400 unit) tablet 1 tab PO BID supplement 02/21/24 [History Last Taken Unknown] escitalopram oxalate 10 mg tablet 10 mg PO DAILY mood 02/21/24 [History Last Taken Unknown] metformin 500 mg tablet,extended release 24 hr 500 mg PO DAILY blood sugars 02/21/24 [History Last Taken Unknown] oxybutynin chloride 5 mg tablet,extended release 24 hr 5 mg PO DAILY bladder 02/21/24 [History Last Taken Unknown] rosuvastatin 20 mg tablet 20 mg PO QHS cholesterol 02/21/24 [History Last Taken Unknown] sacubitril 24 mg-valsartan 26 mg tablet (Entresto) 0.5 tab PO BID heart 02/21/24[History Last Taken Unknown] acetaminophen 325 mg tablet 650 mg (2 x 325 mg) PO Q4H PRN PRN Fever, pain 1- 08/31 #0 tabs 02/29/24 [Rx Last Taken Unknown] bisacodyl 5 mg tablet,delayed release 5 mg PO BID bowels #0 tabs 02/29/24 [Rx Last Taken Unknown] budesonide 3 mg capsule,delayed,extended release 9 mg (3 x 3 mg) PO DAILY bowel disease #0 ea 02/29/24 [Rx Last Taken Unknown] dicyclomine 10 mg capsule 20 mg (2 x 10 mg) PO TIDAC bloating/digestion #0 caps 02/29/24 [Rx Last Taken Unknown] polyethylene glycol 3350 17 gram/dose oral powder (Miralax) 17 g PO DAILY bowels1 month #510 grams 02/29/24 [Rx Last Taken Unknown] vancomycin 25 mg/mL oral solution (Firvanq) 125 mg (5 mL) PO Q6 preventive 10 days #200 mL 02/29/24 [Rx Last Taken Unknown] Allergy/AdvReac Type Severity Reaction Status Date / Time No Known Allergies Allergy Verified 02/21/24 14:04 Family History Father Heart disease Mother Anxiety and depression Suicide and self-inflicted injury from suicide age 52. Surgical History History of cardiac defibrillator placement History of cholecystectomy History of coronary artery stent placement History of skin surgery S/P colon polypectomy Social History household members: spouse Smoking Status: Former smoker how long ago did patient quit smokin-1.5 ppd from teen until quit in 2008. alcohol intake: never substance use type: does not use ROS Constitutional Constitutional: Denies chills, fever(s) or weight gain ENT HEENT: Denies headache(s), nasal congestion or nasal discharge Cardiovascular Cardiovascular: Denies chest pain or palpitations Respiratory/Chest Respiratory/Chest: Denies cough, excessive phlegm production or shortness of breath with exertion Gastrointestinal Gastrointestinal: Denies abdominal pain, nausea or vomiting Genitourinary Genitourinary: Denies dysuria Musculoskeletal Musculoskeletal: Denies joint pain or joint swelling Integumentary Integumentary: Denies rash or wounds Neurologic Neurologic: Denies focal weakness, numbness or tingling Psychiatric Psychiatric: Denies anxiety, auditory hallucinations, depression, homicidal ideation or suicidal ideation Vital Signs Vital Signs Vital Signs: 02/29/24 13:49 02/29/24 13:31 Temperature 98.2 F Temperature Source Temporal Pulse Rate 75 Pulse Rhythm Regular Pulse Strength Normal (2+) Respiratory Rate 16 Respiratory Effort Normal Non-Labored Respiratory Depth Normal Respiratory Pattern Normal Blood Pressure 136/62 H Blood Pressure Mean 86 Blood Pressure Source Monitor Blood Pressure Position Sitting Blood Pressure Location Left Arm Pulse Ox 95 Oxygen Delivery Method Room Air Room Air Weight Weight: 66.315 kg Body Mass Index (BMI) 22.2 Physical Exam Const alert General Appearance: cooperative HEENT normocephalic Eyes PERRL and EOMs intact bilaterally Neck supple, no JVD and no carotid bruits Resp normal respiratory effort, normal air movement and clear to auscultation bilaterally Cardio regular rate and regular rhythm GI normal to inspection, nondistended, normoactive bowel sounds, non-tender and non-distended Extremity normal capillary refill General Extremity: Negative for edema Skin no rashes or lesions noted General Skin Exam: no breakdown Psych affect normal Appearance: appropriate Assessment & Plan Assessment/Plan (1) Debility: (2) Colitis: (3) Gastrointestinal bleeding, lower: (4) Acute kidney injury: (5) Constipation: (6) Clostridium difficile colitis: (7) CVA (cerebral vascular accident): (8) HLD (hyperlipidemia): (9) Muscle spasm: (10) GERD (gastroesophageal reflux disease): (11) Vitamin D deficiency: (12) Depression: (13) Anxiety: (14) Diabetes mellitus: (15) Heart failure with reduced ejection fraction: (16) Overactive bladder: (17) Insomnia: (18) Leg cramp: PLAN: Plan 69 year old female with below past medical history hospitalized for colitis, rectal bleeding, SUJATHA, c.diff, complicated by electrolyte abnormalities, admittedto TCU with debility, here for rehabilitation, strengthening, prior to [facility] with . * Debility - PT/OT. * Pain - Tylenol 1000mg q6 prn pain (1-10). * Bowel - Miralax 17gm daily, Dulcolax 5mg bid. * Adult immunization - Administer pneumonia vaccine, covid vaccine, flu vaccine as appropriate. * DVT prophylaxis - Hold, recent bleed, on dual antiplatelet therapy. * Stroke - Aspirin 81mg daily, Plavix 75mg daily. * Hyperlipidemia - Atorvastatin 40mg qhs. * Muscle spasm - Baclofen 5mg bid. * Colitis (c. diff) - Budesonide 9mg daily, Vancomycin 125mg q6 x 10 days. * Calcium deficiency - Calcium D bidcm. * Vitamin D deficiency - D3 25mcg daily. * Insomnia - Clonazepam 1mg qhs, Trazodone 50mg qhs prn, stable chronic longterm use, GDR not recommended. * Abdominal cramping - Dicyclomine 20mg tidac. * HFrEF - Metoprolol succinate 15mg daily, Entresto 24/26mg 1/2 tablet bid, Jardiance 10mg daily, Aldactone 12.5mg mwf. * Nutrition - Ensure 120ml 4x/day, MVI daily. * Depression - Escitalopram 10mg daily, stable chronic long term care social worker use, GDR not recommended. * Diabetes Mellitus II - Metformin XR 500mg daily. * GERD - Pantoprazole 40mg bid. * Overactive bladder - Tolterodine 2mg daily. 02/29/241999 <Electronically signed by Alonso Marte MD> Cosigner Signature (if applicable): CC: Dr. Adrienne Byers DO; Dr. Alonso Marte MD~ Signed [facility] Work Phone: [phone]) 934-890904-09-2024 Progress note Author Yoandy Thakkar [facility] February 29, 2024 10:26am Note Date/Time February 29, 2024 10:2 6am [facility] Medical Records Department [address] [place] [address] Progress Note - Infect Disease 02/29/24 1025 MR#: [id number] Acct: [id number] Name: MANSI CARO Rep #:[id number] : 1955 69 From: Yoandy knight MD PCP: Dr. Adrienne Byers, DO Status:ADM IN Location: MS3 [id number] Physical Exam Narrative Feeling better, abd pain resolved, diarrhea improved, no fever Const alert and no apparent distress General Appearance: cooperative Resp normal air movement and clear to auscultation bilaterally Cardio regular rate and regular rhythm GI soft to palpation, non-tender and non-distended Skin no rashes or lesions noted ID ID: Route of nutrition/ use of supplements: [] Nutritional Intake: [] IV Site: [] Juarez Catheter: [] Assessment & Plan Assessment/Plan (1) Colitis: PLAN: Cdiff pcr (+) but toxin neg. Much improved. Plan on 10 more days po vanc 125mg 4x/day. Will follow, d/w Dr. Kiran 02/29/24 1026 <Electronically signed by Yoandy Thakkar MD> Cosigner Signature (if applicable): CC: ~ Signed [facility] Work Phone: 1(969) 929-228604-09-2024 Discharge summary Author Ganesh Kiran [facility] February 29, 2024 11:33am Note Date/Time February 29, 2024 7:[address] [facility] Medical Records Department [address] [place] [id number] Transfer to [facility] MR#: [id number] Acct: [id number] Name: MANSI CARO Rep #:[id number] : 1955 69 From: Gnaesh Amaya PCP: Dr. Adrienne Byers, DO Status:ADM IN Certification of patient admission REQUIRED AT TIME OF ADMISSION. I CERTIFY THAT POST-HOSPITAL ECF SERVICES ARE REQUIRED TO BE GIVEN ON AN IN-PATIENT BASIS BECAUSE OF THE ABOVE NAMED PATIENT'S NEED FOR [facility] CARE ON A CONTINUING BASIS FOR THE CONDITION(S) FOR WHICH HE/SHE WAS RECEIVING IN-PATIENT HOSPITAL SERVICES PRIOR TO HIS/HER TRANSFER TO THE [facility]. 02/29/24 1133<Electronically signed by Ganesh Kiran MD> Diet Diet Order/Speech Therapy: 02/29/24 07:34 Diet: Transitional Type of Dietary Supplement:: Ensure Plus High Protein Is pt able to select menu?: No Diet Comments: 2000 gloria Routine Orders/Code Status Suppository Type: Dulcolax 10mg Suppository Frequency: Daily PRN Code Status: Full Code Wound(s) diaper/groin: Wound Type: galded from diarrhea Therapies Weight Bearing: Weight bearing as tolerated Extremity Affected:: Bilateral Lower Physical Therapy: Eval and Treat Occupational Therapy: Eval and Treat Speech Therapy: Eval and Treat Problem/Diagnosis (1) CVA (cerebral vascular accident): Status: Inactive Code(s): I63.9 - Cerebral infarction, unspecified Plan This 68-year-old female was admitted with abdominal pain, nausea, vomiting and diarrhea progressively worse over past few days patient was seen [address] was done and was discharged on stool softener MiraLAX. #Acute colitis * Was admitted with a complaint of bright red rectal bleeding left lower quadrant abdominal pain. CT of the abdomen and pelvis showed new inflammation along the length of the descending colon concerning for infectious or inflammatory colitis * colonoscopy showed diverticulosis in the rectosigmoid colon, sigmoid colon and hepatic flexure, as well as patchy moderate inflammation in the sigmoid colon, descending colon and at the heaptic and splenic flexure and in the ascending colon due to ischemic colitis. * Antibiotics broadened to vancomycin and Zosyn after she continued to have a fever. Fever has now resolved. * CT of the chest abdomen and pelvis showed persistent BX submucosal thickening in the distal transverse, throughout the descending and sigmoid colon consistent with a diffuse colitis with pericolonic inflammatory stranding but no perforation or abscess and new free-flowing bilateral pleural effusions with bibasilar atelectasis. * Continuing IV vancomycin and Zosyn. White cell count is trended down from 13.1 yesterday to 6. * Patient was evaluated by financial developer 02/27: Patient passing flatus but no bowel movement. On a stool softener and MiraLAX. Clear liquid diet started. Patient was evaluated by ID and vancomycindiscontinued. Continue IV Zosyn and p.o. vancomycin. Leukocytosis has resolved. Hypokalemia, hypomagnesemia and hypophosphatemia:electrolyte replacement ordered. #Bilateral pleural effusions * chest CT shwoed bilateral free flowing pleural effusions. * patient on room air. Had previously been on 2 L of oxygen. * Per records, and cumulative positive fluid balance by 14,405 mL. I doubt this is acute rate as patient does have a Juarez catheter in situ and has been using the bathroom on her own which a urine is not adequately being measured. * Will consider diuresis if patient requires increasing oxygen amounts. * check BNP. * Echo from September 2023 showed EF of 55% and no evidence of diastolic dysfunction with no regional wall motion abnormality seen. #Hypotension: resolved. #Lower GI bleed: Due to acute colitis as above. Resolved #SUJATHA: resolved. #Anemia: * Patient has had acute anemia with hemoglobin of 8.1. * Hemoglobin on 03/11/2024 was 12.2 but this is likely due to acute blood loss anemia from GI bleed due to ischemic colitis. GI on board. * Will monitor and if hemoglobin trends to less than 7, will consider transfusion. #Type 2 diabetes mellitus: lantus resumed. ISS. Accuchecks ACHS #History of ischemic cardiomyopathy, s/p biventricular ICD: stable. #Benign essential hypertension:metoprolol and entresto resumed. Spironolactone remains on hold #HFpEF: on entresto and metoprolol. SPironolactone on hold #History of cerebral palsy: Stable #History of CVA: On aspirin and Plavix on hold due to the GI bleed #Hyperlipidemia: On statin #Anxiety and depression: on citalopram and clonazepam #Left upper renal pole cyst:per radiologist, no further imaging required. DVT prophylaxis: SCDs. Discussed with the complex case manager. Patient's wanted to go to TCU. Allergies/Procedures Done in Hospital Allergies No Known Allergies Allergy (Verified 02/21/24 14:04) Type of Care/Length of Stay Estimated LOS: Convalescent Care Less Than 30 days Type of Care Needed: Skilled Rehab Potential: Good Prognosis: Good Additional Orders/Day of Discharge Day of Discharge: 02/29/24 Dietary and Speech Recommendations Dietitian Recommendations/Changes: Recommend advance diet as tolerated to 1600 calorie/consistent carbohydrate; cardiac; high fiber Provide chocolate ensure plus high protein w/ meals until po intake consistentlyimproves Discharge Plan Admission Admit Date/Time: 02/21/24 19:53 Primary Reason for Your Visit: Ischemic colitis, C. difficile colitis Attending Provider: Ganesh Kiran Primary Care Provider: Adrienne Byers Consulting Providers: Ben Johnson; Yoandy Thakkar; Heike Horta Instructions Additional Instructions / Restrictions: Hold stool softeners, MiraLAX and bisacodyl if patient has more than 1 bowel movement per day Discharge Orders/Prescriptions Prescriptions: New bisacodyl 5 mg Tablet,Delayed Release (Dr/Ec) 5 mg PO BID Qty: 0 0RF Rx Instructions: Hold if more than 1 bowel movement per day acetaminophen 325 mg Tablet 650 mg PO Q4H PRN PRN (Reason: Fever, pain -08/31) Qty: 0 0RF budesonide 3 mg Capsule,Delayed,Extend.Release 9 mg PO DAILY Qty: 0 0RF dicyclomine 10 mg Capsule 20 mg PO TIDAC Qty: 0 0RF vancomycin [Firvanq] 25 mg/mL Recon Soln 125 mg PO Q6 10 Days Qty: 200 0RF polyethylene glycol 3350 [Miralax] 17 gram/dose powder 17 g PO DAILY 30 Days Qty: 510 0RF Rx Instructions: Hold if more than 1 bowel moods per day Continued trazodone 50 MG tablet 50 mg PO DAILY PRN (Reason: Anxiety) clonazepam 1 MG tablet 1 mg PO QHS citalopram 20 MG tablet 20 mg PO QHS multivitamin with folic acid [Thera] 1 TABLET tablet 1 tab PO DAILY Hold Instructions: Pt is ill clopidogrel 75 MG tablet 1 tab PO QHS Jardiance 10 mg tablet 10 mg PO DAILY metoprolol succinate 25 mg tablet extended release 24 hr 12.5 mg PO DAILY pantoprazole 40 MG tablet 40 mg PO BID cholecalciferol (vitamin D3) 25 mcg (1,000 unit) Tablet 50 mcg PO QHS Qty: 0 0RF Hold Instructions: Pt is ill spironolactone 25 mg tablet 12.5 mg PO MOWEFR oxybutynin chloride 5 mg tablet extended release 24hr 5 mg PO DAILY escitalopram oxalate 10 mg tablet 10 mg PO DAILY rosuvastatin 20 mg tablet 20 mg PO QHS Entresto 24-26 mg tablet 0.5 tab PO BID baclofen 5 mg tablet 5 mg PO BID Patient Comments: PLEASE SEE ATTACHED FOR DETAILED DIRECTIONS Held aspirin 81 mg tablet,delayed release (DR/EC) 81 mg PO DAILY Hold Instructions: Hold for 3 days metformin 500 mg tablet extended release 24 hr 500 mg PO DAILY Hold Instructions: Hold for 1 week calcium carbonate-vitamin D3 600 mg-10 mcg (400 unit) tablet 1 tab PO BID Hold Instructions: Hold for 1 week Referrals / Follow Up: Adrienne Byers DO [Primary Care Provider] - Shan Lockett DO [Med Staff - Active Staff] - Within 1 Month Yoandy Thakkar MD [Med Staff - Active Staff] - Within 1 Month (As needed for C. difficile) Disposition Disposition (needs filled in before D/C Order can be placed): [facility] 02/29/24 1133 <Electronically signed by Ganesh Kiran MD> Cosigner Signature (if applicable): CC: Dr. Ben Johnson DO; Dr. Adrienne Byers DO; Dr. Heike Horta MD; Dr.Robert Ariane MD ~ [facility] Work Phone: [phone]) 224-989004-08-2024 Progress note Author Shan Lockett [facility] February 28, 2024 5:29pm Note Date/Time February 28, 2024 5:[address] [facility] Medical Records Department [address] [place] [address] Progress Note - GI 02/28/24 1727 MR#: [id number] Acct: [id number] Name: MANSI CARO Rep #:[id number] : 1955 69 From: Shan Lockett DO PCP: Dr. Adrienne Byers DO Status:ADM IN Location: [place] [address] Subjective Subjective Patient's diarrhea has subsided with current medical regimen. She has a lot less cramping which I think was contributing to her diarrhea. Objective Data Objective Data Vital Signs: Vital Signs Temp Pulse Resp BP Pulse Ox O2 Del Method O2 Flow Rate 98.7 F 90 18 143/96 H 95 Room Air 2 02/28/24 15:42 02/28/24 15:44 02/28/24 15:42 02/28/24 15:42 02/28/24 15:42 02/28/24 15:44 02/26/24 22:00 Oxygen Flow Rate (L/min) 2 Oxygen Delivery Method Room Air Weight: 128 lb 15.985 oz Body Mass Index (BMI) 19.5 Intake & Output: Intake and Output for Last 24 Hours 02/26/24 02/27/24 02/28/24 23:59 23:59 23:59 Intake Total 4167.33 / 4167.33 2355.63 / 2355.63 900.37 / 900.37 Output Total 550 / 550 Balance 4167.33 / 4067.33 1805.63 / 1805.63 900.37 / 900.37 Lab / Micro Data 02/28/24 05:40 02/28/24 05:40 Labs: Laboratory Results - last 24 hr 02/27/24 21:30: Vancomycin Trough 13.3 02/28/24 05:40: WBC 4.6, RBC 2.90 L, Hgb 8.6 L, Hct 26.8 L, MCV 92.4, MCH 29.7, MCHC 32.1, RDW Std Deviation 48.0 H, RDW Coeff of Edita 14.2, Plt Count 142 L, MPV10.8, Immature Gran % (Auto) 0.200, Neut % (Auto) 44.0 L, Lymph % (Auto) 44.4 H,[place] % (Auto) 6.9, Eos % (Auto) 4.3, Baso % (Auto) 0.2, Absolute Neuts (auto) 2.0, Absolute Lymphs (auto) 2.05, Nucleated RBC % 0, Sodium 143, Potassium 3.2 L, Chloride 115 H, Carbon Dioxide 24.0, Anion Gap 4 L, BUN 5 L, Creatinine 0.62, Estim Creat Clear Calc 59.58, Est GFR (MDRD) Af Amer 121, Est GFR (MDRD) Non-Af 100, BUN/Creatinine Ratio 8.0 L, Glucose 85, Calcium 7.8 L, Phosphorus 2.0 L, Magnesium 1.6 Micro: Microbiology 02/25/24 17:42 Blood Culture (Wb) - Right Hand Blood Culture - Preliminary No growth in 48 hours. 02/25/24 17:22 Blood Culture (Wb) - Left Hand Blood Culture - Preliminary No growth in 48 hours. 02/26/24 00:00 Urine, Clean Catch Urine Culture - Final Culture exhibits no growth. 02/25/24 18:35 Urine, Clean Catch Legionella Antigen - Final 02/25/24 18:35 Urine, Clean Catch Streptococcus pneumoniae Antigen (M - Final 02/21/24 22:45 Stool Enteric Bacteriology - Final 02/21/24 22:45 Stool C. difficile GDH Antigen & Toxins - Final 02/21/24 22:45 Stool Clostridioides difficile (PCR) - Final 02/21/24 16:20 Stool Stool Occult Blood (EDUARDO) - Final Occult Blood Positive Physical Exam Const alert and no apparent distress General Appearance: cooperative HEENT normocephalic and head/scalp atraumatic Eyes PERRL and EOMs intact bilaterally Neck supple and No nodes Resp normal air movement and clear to auscultation bilaterally Cardio regular rate and regular rhythm Heart Sounds: murmur GI soft to palpation, non-tender and non-distended Extremity General Extremity: Negative for edema Skin no rashes or lesions noted Neuro CN's II-XII intact bilaterally Assessment & Plan Assessment/Plan (1) CVA (cerebral vascular accident): PLAN: Plan 69-year-old with unfortunate recent diagnosis of Recurrent right-sided weaknesswith spasticity secondary to possible underlying CVA. ? I am not sure why patient developed worsening constipation. Likely is medication side effect. She is on aspirin 81 milligrams a day. As she takes pantoprazole 40 mg twice a day. I think she needs undergo evaluation of her GI tract to see if she has any signs and symptoms of ischemic disease, peptic ulcerdisease, chronic changes such as Lukasz's erosions, angiodysplasia, gastroesophageal reflux disease. Findings from colonoscopy Impression: - Rectal prolapse. - Diverticulosis in the recto-sigmoid colon, in the sigmoid colon and at the hepatic flexure. - Patchy moderate inflammation was found in the sigmoid colon, in the descending colon, at the splenic flexure, at the hepatic flexure and in the ascending colon secondary to ischemic colitis. Biopsied. - The examination was otherwise normal. Recommendation: - [facility]. - Resume previous diet. - Continue present medications. - Await pathology results. -This is ischemic colitis secondary to severe constipation. The goal is an aggressive bowel regimen. 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 She does take baclofen with narcotics at home and has a history of chronic idiopathic constipation. She was determined to have ischemic colitis in the setting of diverticular disease and mild sigmoid colitisassociated with diverticulosis. Recommend to Dulcolax 5 mg twice a day. If sheis gone but not gone completely then she will need to add MiraLAX on a daily basis. 02/25/2024-we started on bowel regimen yesterday. And she has been having bowel movements without straining. I cannot explain why her appetite is poor. She does have a history of anxiety and mild depression. At this time she is not on anything for anxiety or depression. I think that could be contributing to some to her fatigue, weakness and poor appetite. 02/26/2024-I still think that she is exhibiting signs of cramping, abdominal pain and diarrhea resulting in ischemic colitis. Her stools are PCR positive for toxigenic C. difficile but there antigen negative for C. difficile. I will start her on empiric oral vancomycin. She should also get started on a probiotic and low-dose budesonide therapy for the intermittent colitis that seenon imaging. She also needs to be on scheduled Bentyl for the cramping. 02/27/2024-patient is showing some signs of improvement. Recommended continue current medication regimen. 02/28/2024-patient from a GI standpoint is doing a lot better. She is not having any signs of lower GI bleeding. But the cramping is a lot better on scheduled dicyclomine. She also has been on budesonide and oral vancomycin. She feels less bloated. Appreciate infectious disease consultation. Recommended stoppingIV Vanco and continue oral Vanco. I am okay with continue that plan. Charges/Coding Visit Charges Inpatient E&M: 72686 Subs Hosp L3 02/28/24 1729 <Electronically signed by Shan Friend DO> Cosigner Signature (if applicable): CC: ~ Signed [facility] Work Phone: 1(362) 937-479704-08-2024 Progress note Author Ganesh Kiran [facility] February 28, 2024 1:13pm Note Date/Time February 28, 2024 8:26 am [facility] Medical Records Department [address] [place] [address] Progress Note - Hospitalist 02/28/24822 MR#: [id number] Acct: [id number] Name: MANSI CARO Rep #:[id number] : 1955 69 From: Ganesh Amaya PCP: Dr. Adrienne Byers, Status:ADM IN [facility] Reason for Visit Reason for Visit: Diagnoses Cerebral infarction, unspecified (02/21/24) Noninfective gastroenteritis and colitis, unspecified (02/21/24) Gastrointestinal hemorrhage, unspecified (02/21/24) Objective Data Objective Data Vital Signs: Vital Signs Temp Pulse Resp BP Pulse Ox O2 Del Method O2 Flow Rate 98 F 71 16 140/61 H 95 Room Air 2 02/28/24 02:15 02/28/24 02:15 02/28/24 02:15 02/28/24 02:15 02/28/24 02:15 02/28/24 02:15 02/26/24 22:00 Oxygen Flow Rate (L/min) 2 Oxygen Delivery Method Room Air Weight: 128 lb 15.985 oz Body Mass Index (BMI) 19.5 Intake & Output: Intake and Output for Last 24 Hours 02/26/24 02/27/24 02/28/24 23:59 23:59 23:59 Intake Total 4167.33 / 4167.33 2355.63 / 2355.63 284.37 / 284.37 Output Total 550 / 550 Balance 4167.33 / 4067.33 1805.63 / 1805.63 284.37 / 284.37 Lab / Micro Data 02/28/24 05:40 02/28/24 05:40 Labs: Laboratory Results - last 24 hr 02/27/24 21:30: Vancomycin Trough 13.3 02/28/24 05:40: WBC 4.6, RBC 2.90 L, Hgb 8.6 L, Hct 26.8 L, MCV 92.4, MCH 29.7, MCHC 32.1, RDW Std Deviation 48.0 H, RDW Coeff of Edita 14.2, Plt Count 142 L, MPV10.8, Immature Gran % (Auto) 0.200, Neut % (Auto) 44.0 L, Lymph % (Auto) 44.4 H,[place] % (Auto) 6.9, Eos % (Auto) 4.3, Baso % (Auto) 0.2, Absolute Neuts (auto) 2.0, Absolute Lymphs (auto) 2.05, Nucleated RBC % 0, Sodium 143, Potassium 3.2 L, Chloride 115 H, Carbon Dioxide 24.0, Anion Gap 4 L, BUN 5 L, Creatinine 0.62, Estim Creat Clear Calc 59.58, Est GFR (MDRD) Af Amer 121, Est GFR (MDRD) Non-Af 100, BUN/Creatinine Ratio 8.0 L, Glucose 85, Calcium 7.8 L Micro: Microbiology 02/26/24 00:00 Urine, Clean Catch Urine Culture - Preliminary Culture exhibits no growth. 02/25/24 18:35 Urine, Clean Catch Legionella Antigen - Final 02/25/24 18:35 Urine, Clean Catch Streptococcus pneumoniae Antigen (M - Final 02/21/24 22:45 Stool Enteric Bacteriology - Final 02/21/24 22:45 Stool C. difficile GDH Antigen & Toxins - Final 02/21/24 22:45 Stool Clostridioides difficile (PCR) - Final 02/21/24 16:20 Stool Stool Occult Blood (EDUARDO) - Final Occult Blood Positive Physical Exam Narrative Seen and examined. Patient did not had bowel movement for 3 days. Abdominal pain has resolved. Nofever. Still NPO. Physical exam General: Alert, Oriented x3, Cooperative. Fatigue HEENT: Atraumatic, PERRLA, EOMI, Normocephalic Oral: No Gingival or Mucosal Lesions/ Ulcerations Neck: Supple, No JVD, Negative Carotid Bruits Chest wall/Lungs: Air entry diminished in bilateral lung bases. No crepitation/rhonchi Cardiovascular: Regular rate, Regular Rhythm, Normal S1, Normal S2, No M/G/R Abdomen: Bowel Sounds Present, Soft, Non Tender, Non-Distended : No dysuria. No renal angle tenderness. No suprapubic tenderness. Extremities: No edema, Capillary Refill Less than 3 Seconds Skin: No rashes, No breakdown Musculoskeletal: No Tenderness to Palpation of Joints or Extremities Neurological: Cranial nerves II-XII grossly intact, DTR 2+/4. No acute focal neurological deficit. Psych/Mental Status: Flat affect. Assessment & Plan Assessment/Plan (1) Gastrointestinal bleeding, lower: (2) Colitis: PLAN: Plan This 68-year-old female was admitted with abdominal pain, nausea, vomiting and diarrhea progressively worse over past few days patient was seen [address] was done and was discharged on stool softener MiraLAX. #Acute colitis * Was admitted with a complaint of bright red rectal bleeding left lower quadrant abdominal pain. CT of the abdomen and pelvis showed new inflammation along the length of the descending colon concerning for infectious or inflammatory colitis * colonoscopy showed diverticulosis in the rectosigmoid colon, sigmoid colon and hepatic flexure, as well as patchy moderate inflammation in the sigmoid colon, descending colon and at the heaptic and splenic flexure and in the ascending colon due to ischemic colitis. * Antibiotics broadened to vancomycin and Zosyn after she continued to have a fever. Fever has now resolved. * CT of the chest abdomen and pelvis showed persistent BX submucosal thickening in the distal transverse, throughout the descending and sigmoid colon consistent with a diffuse colitis with pericolonic inflammatory stranding but no perforation or abscess and new free-flowing bilateral pleural effusions with bibasilar atelectasis. * Continuing IV vancomycin and Zosyn. White cell count is trended down from 13.1 yesterday to 6. * Patient was evaluated by financial developer 02/27: Patient passing flatus but no bowel movement. On a stool softener and MiraLAX. Clear liquid diet started. Patient was evaluated by ID and vancomycindiscontinued. Continue IV Zosyn and p.o. vancomycin. Leukocytosis has resolved. Hypokalemia, hypomagnesemia and hypophosphatemia:electrolyte replacement ordered. #Bilateral pleural effusions * chest CT shwoed bilateral free flowing pleural effusions. * patient on room air. Had previously been on 2 L of oxygen. * Per records, and cumulative positive fluid balance by 14,405 mL. I doubt this is acute rate as patient does have a Juarez catheter in situ and has been using the bathroom on her own which a urine is not adequately being measured. * Will consider diuresis if patient requires increasing oxygen amounts. * check BNP. * Echo from September 2023 showed EF of 55% and no evidence of diastolic dysfunction with no regional wall motion abnormality seen. #Hypotension: resolved. #Lower GI bleed: Due to acute colitis as above. Resolved #SUJATHA: resolved. #Anemia: * Patient has had acute anemia with hemoglobin of 8.1. * Hemoglobin on 03/11/2024 was 12.2 but this is likely due to acute blood loss anemia from GI bleed due to ischemic colitis. GI on board. * Will monitor and if hemoglobin trends to less than 7, will consider transfusion. #Type 2 diabetes mellitus: lantus resumed. ISS. Accuchecks ACHS #History of ischemic cardiomyopathy, s/p biventricular ICD: stable. #Benign essential hypertension:metoprolol and entresto resumed. Spironolactone remains on hold #HFpEF: on entresto and metoprolol. SPironolactone on hold #History of cerebral palsy: Stable #History of CVA: On aspirin and Plavix on hold due to the GI bleed #Hyperlipidemia: On statin #Anxiety and depression: on citalopram and clonazepam #Left upper renal pole cyst:per radiologist, no further imaging required. DVT prophylaxis: SCDs. Discussed with the complex case manager. Patient's wanted to go to TCU. Charges/Coding Visit Charges Inpatient E&M: 43716 Subs Hosp L2 02/28/24 1313 <Electronically signed by Ganesh Kiran MD> Cosigner Signature (if applicable): CC: ~ Signed [facility] Work Phone: 1(894) 674-205204-08-2024 Consult note Author Yoandy Thakkar [facility] February 28, 2024 1:02pm Note Date/Time February 28, 2024 1:02 pm [facility] Medical Records Department [address] [place] [address] Consultation - Infectious Dx 02/28/24 1258 MR#: [id number] Acct: [id number] Name: MANSI CARO Rep #:[id number] : 1955 69 From: Yoandy knight MD PCP: Dr. Adrienne Byers, DO Status:ADM IN Location: [place] [address] Assessment & Plan Assessment/Plan (1) Colitis: PLAN: Cdiff pcr (+) but toxin neg. Will stop iv vanc. Cont po vanc and zosyn for now. Overall improving. Will follow, thank you HPI Consult Data Date of Consult: 02/28/24 HPI Narrative Reason for Consultation: colitis HPI Narrative: MANSI CARO, is a 69 F who presented 02/21/24 to ED with 2 days of diarrhea, blood in stool, confusion, hypotension, abd pain. Had been in ED 2 days prior with constipation, given bowel regimen. No prior h/o cdiff. CT here showed colitis, cdiff pcr (+), started on iv vanc, po vanc, iv zosyn. Feeling better, pain and diarrhea slowly improving. Full ROS performed and neg except as noted above. [facility] Medical History Anxiety and depression AV node dysfunction Cardiac resynchronization therapy defibrillator (HEAD BELLH[employer] CAPTAIN-D) in place Cerebral palsy Congestive heart failure (CHF) Coronary artery disease CVA (cerebral vascular accident) Diabetes mellitus Former smoker Heart failure with reduced ejection fraction High cholesterol Hyperlipidemia Hypertension ICD (implantable cardioverter-defibrillator) in place Insomnia Ischemic cardiomyopathy Myocarditis Pacemaker PFO (patent foramen ovale) Presence of biventricular implantable cardioverter-defibrillator Restless legs Transient ischemic attack Ulcer Home Medications citalopram 20 mg tablet 20 mg PO QHS depression 11/18/14 [History Last Taken 10/06/23] clonazepam 1 mg tablet 1 mg PO QHS anxiety 11/18/14 [History Last Taken 10/06/23] multivitamin with folic acid 400 mcg tablet (Thera) 1 tab PO DAILY vitamin 11/18/14 [History Last Taken 10/07/23] trazodone 50 mg tablet 50 mg PO DAILY PRN Anxiety 11/18/14 [History Last Taken 10/06/23] clopidogrel 75 mg tablet 1 tab PO QHS anti platelet 05/18/16 [History Last Taken 10/06/23] empagliflozin 10 mg tablet (Jardiance) 10 mg PO DAILY diabetes 09/28/23 [History Last Taken 10/07/23] metoprolol succinate 25 mg tablet,extended release 24 hr 12.5 mg PO DAILY blood pressure 09/28/23 [History Last Taken 10/07/23] pantoprazole 40 mg tablet,delayed release 40 mg PO BID stomach acid 09/28/23 [History Last Taken 10/07/23] cholecalciferol (vitamin D3) 25 mcg (1,000 unit) tablet 50 mcg (2 x 25 mcg (1,000 unit)) PO QHS supplement #0 tabs 09/30/23 [Rx Last Taken 10/06/23] aspirin 81 mg tablet,delayed release 81 mg PO DAILY heart 10/01/23 [History Last Taken 10/07/23] spironolactone 25 mg tablet 12.5 mg PO MOWEFR FLUID 10/07/23 [History Last Taken 10/06/23] baclofen 5 mg tablet 5 mg PO BID 02/21/24 [History Last Taken Unknown] calcium carbonate 600 mg-vitamin D3 10 mcg (400 unit) tablet 1 tab PO BID 02/21/24 [History Last Taken Unknown] escitalopram oxalate 10 mg tablet 10 mg PO DAILY 02/21/24 [History Last Taken Unknown] metformin 500 mg tablet,extended release 24 hr 500 mg PO DAILY 02/21/24 [History Last Taken Unknown] oxybutynin chloride 5 mg tablet,extended release 24 hr 5 mg PO DAILY 02/21/24 [History Last Taken Unknown] rosuvastatin 20 mg tablet 20 mg PO QHS 02/21/24 [History Last Taken Unknown] sacubitril 24 mg-valsartan 26 mg tablet (Entresto) 0.5 tab PO BID 02/21/24 [History Last Taken Unknown] Allergy/AdvReac Type Severity Reaction Status Date / Time No Known Allergies Allergy Verified 02/21/24 14:04 Family History Father Heart disease Mother Anxiety and depression Suicide and self-inflicted injury from suicide age 52. Surgical History History of cardiac defibrillator placement History of cholecystectomy History of coronary artery stent placement History of skin surgery S/P colon polypectomy Social History household members: spouse Smoking Status: Former smoker how long ago did patient quit smokin-1.5 ppd from teen until quit in 2008. alcohol intake: never substance use type: does not use Physical Exam Const alert and no apparent distress General Appearance: cooperative HEENT normocephalic and head/scalp atraumatic Eyes PERRL and EOMs intact bilaterally Neck supple and No nodes Resp normal air movement and clear to auscultation bilaterally Cardio regular rate and regular rhythm Heart Sounds: murmur GI soft to palpation, non-tender and non-distended Extremity General Extremity: Negative for edema Skin no rashes or lesions noted Neuro CN's II-XII intact bilaterally Lab / Micro Data Attestation: I reviewed the patient's lab results. 02/28/24 05:40 02/28/24 05:40 Labs: Laboratory Results - last 24 hr 02/27/24 21:30: Vancomycin Trough 13.3 02/28/24 05:40: WBC 4.6, RBC 2.90 L, Hgb 8.6 L, Hct 26.8 L, MCV 92.4, MCH 29.7, MCHC 32.1, RDW Std Deviation 48.0 H, RDW Coeff of Edita 14.2, Plt Count 142 L, MPV10.8, Immature Gran % (Auto) 0.200, Neut % (Auto) 44.0 L, Lymph % (Auto) 44.4 H,[place] % (Auto) 6.9, Eos % (Auto) 4.3, Baso % (Auto) 0.2, Absolute Neuts (auto) 2.0, Absolute Lymphs (auto) 2.05, Nucleated RBC % 0, Sodium 143, Potassium 3.2 L, Chloride 115 H, Carbon Dioxide 24.0, Anion Gap 4 L, BUN 5 L, Creatinine 0.62, Estim Creat Clear Calc 59.58, Est GFR (MDRD) Af Amer 121, Est GFR (MDRD) Non-Af 100, BUN/Creatinine Ratio 8.0 L, Glucose 85, Calcium 7.8 L, Phosphorus 2.0 L, Magnesium 1.6 Micro: Microbiology 02/26/24 00:00 Urine, Clean Catch Urine Culture - Final Culture exhibits no growth. 02/28/24 1302 <Electronically signed by Yoandy Thakkar MD> Cosigner Signature (if applicable): CC: Dr. Ben Johnson, ; Dr. Adrienne Byers DO; Dr. Heike Horta MD; Dr.Robert Airane MD~ Signed [facility] Work Phone: 1(700) 463-967904-08-2024 Consult note Author Bill Victor [facility] February 28, 2024 2:46am Note Date/Time February 28, 2024 2:46 am [facility] Medical Records Department [address] [place] [id number] Pharmacokinetic/Renal -Consult 02/28/24 0245 MR#: [id number] Acct: [id number] Name: MANSI CARO Rep #:[id number] : 1955 69 From: Bill Charlton od PCP: Dr. Adrienne Byers DO Status:ADM IN Y Location: CT3 [id number] Consult Antibiotic Management Pharmacy has been consulted to manage selected antibiotic: Vancomycin Type of Intervention Type of Consult: Follow-up Labs Labs: Sodium 144 mmol/L (136-145) 02/27/24 06:07 Potassium 3.7 mmol/L (3.5-5.1) 02/27/24 06:07 Chloride 118 mmol/L (98-107) H 02/27/24 06:07 Carbon Dioxide 24.0 mmol/L (21.0-32.0) 02/27/24 06:07 Anion Gap 2 (5-15) L 02/27/24 06:07 BUN 6 mg/dL (7-18) L 02/27/24 06:07 Creatinine 0.66 mg/dL (0.55-1.02) 02/27/24 06:07 Est GFR (MDRD) Af Amer 114 mL/min (>60) 02/27/24 06:07 Est GFR (MDRD) Non-Af 94 mL/min (>60) 02/27/24 06:07 BUN/Creatinine Ratio 9.1 RATIO (10-20) L 02/27/24 06:07 Glucose 117 mg/dL (74-106) H 02/27/24 06:07 Vancomycin Trough 13.3 ug/mL (5.0-15.0) 02/27/24 21:30 Microbiology Microbiology: Microbiology 02/26/24 00:00 Urine, Clean Catch Urine Culture - Preliminary Culture exhibits no growth. 02/25/24 18:35 Urine, Clean Catch Legionella Antigen - Final 02/25/24 18:35 Urine, Clean Catch Streptococcus pneumoniae Antigen (M - Final 02/21/24 22:45 Stool Enteric Bacteriology - Final 02/21/24 22:45 Stool C. difficile GDH Antigen & Toxins - Final 02/21/24 22:45 Stool Clostridioides difficile (PCR) - Final 02/21/24 16:20 Stool Stool Occult Blood (EDUARDO) - Final Occult Blood Positive Goal Trough Goal Trough: 15-20 mcg/mL Pharmacy Plan for Drug Dosing Pharmacy Plan for Drug Dosing: Pharmacy Service will continue to monitor and adjust dosing as required. TROUGH 13.3 @ 10.5 HOURS. INCREASE TO 750MG Q12H AND FOLLOW UP TROUGH PRIOR TO 4TH DOSE Follow-Up Labs Follow-Up Labs: Trough: Vancomycin Date/Time Labs Ordered Labs to be done on [date and time ordered]: 02/28 @ 1000 02/28/24 0246 <Electronically signed by Bill bassett> Date _ Bill Gallo Signature (if applicable): Date CC: ~ Signed [facility] Work Phone: 1(943) 423-230404-07-2024 Progress note Author Shan Friend [facility] February 27, 2024 2:30pm Note Date/Time February 27, 2024 2:30 pm [facility] Medical Records Department [address] [place] [address] Progress Note - GI 02/27/24 1429 MR#: [id number] Acct: [id number] Name: MANSI CARO Rep #:[id number] : 1955 69 From: Shan Lockett DO PCP: Dr. Adrienne Byers, DO Status:ADM IN Location[place] [facility] [place] AV116-1 Subjective Subjective Patient states that her abdominal pain and cramping is a lot better since being started on medications from yesterday. Objective Data Objective Data Vital Signs: Vital Signs Temp Pulse Resp BP Pulse Ox O2 Del Method O2 Flow Rate 98.0 F 68 16 125/56 H 100 Room Air 2 02/27/24 10:30 02/27/24 10:30 02/27/24 10:30 02/27/24 10:30 02/27/24 10:30 02/27/24 10:30 02/26/24 22:00 Oxygen Flow Rate (L/min) 2 Oxygen Delivery Method Room Air Weight: 128 lb 15.985 oz Body Mass Index (BMI) 19.5 Intake & Output: Intake and Output for Last 24 Hours 02/25/24 02/26/24 02/27/24 23:59 23:59 23:59 Intake Total 629 / 629 4167.33 / 4167.33 2200 / 2200 Output Total 550 / 550 Balance 629 / 629 4167.33 / 4067.33 1650 / 1650 Lab / Micro Data 02/27/24 06:07 02/27/24 06:07 Labs: Laboratory Results - last 24 hr 02/26/24 17:10: Sodium 140, Potassium 3.9, Chloride 113 H, Carbon Dioxide 25.0, Anion Gap 2 L, BUN 8, Creatinine 0.75, Estim Creat Clear Calc 59.58, Est GFR (MDRD) Af Amer 99, Est GFR (MDRD) Non-Af 81, BUN/Creatinine Ratio 10.7, Glucose 145 H, Calcium 7.7 L 02/27/24 06:07: WBC 6.2, RBC 2.71 L, Hgb 8.1 L, Hct 25.6 L, MCV 94.5, MCH 29.9, MCHC 31.6 L, RDW Std Deviation 48.5 H, RDW Coeff of Edita 14.3, Plt Count 117 L, MPV 10.6, Immature Gran % (Auto) 0.300, Neut % (Auto) 69.4, Lymph % (Auto) 22.4,[place] % (Auto) 6.2, Eos % (Auto) 1.5, Baso % (Auto) 0.2, Absolute Neuts (auto) 4.3, Absolute Lymphs (auto) 1.38, Nucleated RBC % 0, Sodium 144, Potassium 3.7, Chloride 118 H, Carbon Dioxide 24.0, Anion Gap 2 L, BUN 6 L, Creatinine 0.66, Estim Creat Clear Calc 59.58, Est GFR (MDRD) Af Amer 114, Est GFR (MDRD) Non-Af 94, BUN/Creatinine Ratio 9.1 L, Glucose 117 H, Calcium 8.0 L Micro: Microbiology 02/26/24 00:00 Urine, Clean Catch Urine Culture - Preliminary Culture exhibits no growth. 02/25/24 18:35 Urine, Clean Catch Legionella Antigen - Final 02/25/24 18:35 Urine, Clean Catch Streptococcus pneumoniae Antigen (M - Final 02/21/24 22:45 Stool Enteric Bacteriology - Final 02/21/24 22:45 Stool C. difficile GDH Antigen & Toxins - Final 02/21/24 22:45 Stool Clostridioides difficile (PCR) - Final 02/21/24 16:20 Stool Stool Occult Blood (EDUARDO) - Final Occult Blood Positive Physical Exam Const alert, oriented x3, no apparent distress and average body habitus Constitutional Narrative: frail, in minimal discomfort today. General Appearance: cooperative, well kempt and well developed Orientation / Consciousness: awake, oriented to person and oriented to time HEENT normocephalic, head/scalp atraumatic and hearing grossly normal bilaterally Mouth: dry mucous membranes Eyes PERRL, EOMs intact bilaterally and conjunctivae normal Neck no lymphadenopathy, supple, no JVD, thyroid normal and no carotid bruits General: trachea midline Lymph Lymphatic: no lymphadenopathy noted and no lymphedema noted Resp normal respiratory effort, normal air movement, no retractions, no use of accessory muscles and clear to auscultation bilaterally Auscultation: Negative for rales, rhonchi or wheezes Cardio regular rate, regular rhythm, S1 normal heart sound, S2 normal heart sound, no murmurs, no rub and no gallops GI normal to inspection, nondistended, normoactive bowel sounds, soft to palpation,non-tender and non-distended GI Narrative: mild lower abdominal tenderness, no guarding or rebound tenderness Extremity normal capillary refill, no clubbing, cyanosis or edema and no calf tenderness General Extremity: no tenderness to palpation of joints or extremities Skin no rashes or lesions noted General Skin Exam: no breakdown Neuro oriented x3, CN's II-XII intact bilaterally, moves all extremities, no focal motor deficits, no sensory deficits noted and deep tendon reflexes 2+ bilaterally Sensorium / Orientation: awake and alert Motor Exam: strength 5/5 throughout and general weakness Psych thought process normal, cooperative and affect normal Appearance: appropriate Assessment & Plan Assessment/Plan (1) CVA (cerebral vascular accident): PLAN: Plan 69-year-old with unfortunate recent diagnosis of Recurrent right-sided weaknesswith spasticity secondary to possible underlying CVA. ? I am not sure why patient developed worsening constipation. Likely is medication side effect. She is on aspirin 81 milligrams a day. As she takes pantoprazole 40 mg twice a day. I think she needs undergo evaluation of her GI tract to see if she has any signs and symptoms of ischemic disease, peptic ulcerdisease, chronic changes such as Lukasz's erosions, angiodysplasia, gastroesophageal reflux disease. Findings from colonoscopy Impression: - Rectal prolapse. - Diverticulosis in the recto-sigmoid colon, in the sigmoid colon and at the hepatic flexure. - Patchy moderate inflammation was found in the sigmoid colon, in the descending colon, at the splenic flexure, at the hepatic flexure and in the ascending colon secondary to ischemic colitis. Biopsied. - The examination was otherwise normal. Recommendation: - [facility]. - Resume previous diet. - Continue present medications. - Await pathology results. -This is ischemic colitis secondary to severe constipation. The goal is an aggressive bowel regimen. 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 She does take baclofen with narcotics at home and has a history of chronic idiopathic constipation. She was determined to have ischemic colitis in the setting of diverticular disease and mild sigmoid colitisassociated with diverticulosis. Recommend to Dulcolax 5 mg twice a day. If sheis gone but not gone completely then she will need to add MiraLAX on a daily basis. 02/25/2024-we started on bowel regimen yesterday. And she has been having bowel movements without straining. I cannot explain why her appetite is poor. She does have a history of anxiety and mild depression. At this time she is not on anything for anxiety or depression. I think that could be contributing to some to her fatigue, weakness and poor appetite. 02/26/2024-I still think that she is exhibiting signs of cramping, abdominal pain and diarrhea resulting in ischemic colitis. Her stools are PCR positive for toxigenic C. difficile but there antigen negative for C. difficile. I will start her on empiric oral vancomycin. She should also get started on a probiotic and low-dose budesonide therapy for the intermittent colitis that seenon imaging. She also needs to be on scheduled Bentyl for the cramping. 02/27/2024-patient is showing some signs of improvement. Recommended continue current medication regimen. Charges/Coding Visit Charges Inpatient E&M: 11448 Subs Hosp L3 02/27/24 1430 <Electronically signed by Shan Lockett DO> Cosigner Signature (if applicable): CC: ~ Signed [facility] Work Phone: 1(207) 744-719204-07-2024 Progress note Author Shan Lockett [facility] February 27, 2024 2:21pm Note Date/Time February 26, 2024 3:[address] [facility] Medical Records Department [address] [place] [address] [place] [address] Progress Note - GI 02/26/24 1533 MR#: [id number] Acct: [id number] Name: MANSI CARO Rep #:[id number] : 1955 69 From: Shan Friend DO PCP: Dr. Adrienne Byers, DO Status:ADM IN Location: [facility]3 NG228-1 Subjective Subjective She underwent CT scan abdomen pelvis that displayed : persistent submucosal thickening in the distal transverse, throughout the descending and sigmoid colon consistent with a diffuse colitis. This is likely infectious or inflammatory. There is pericolonic inflammatory stranding but no perforation or abscess noted Stable 4.6 cm parapelvic cyst in the left kidney. No specific follow-up needed New free-flowing bilateral pleural effusions with bibasilar atelectasis Degenerative bony changes Diffuse atherosclerosis Biopsies from her recent colonoscopy did show diffuse ischemic changes. There was no sign of compromised blood flow ongoing on her CTA that she had today. Objective Data Objective Data Vital Signs: Vital Signs Temp Pulse Resp BP Pulse Ox O2 Del Method O2 Flow Rate 99.5 F H 80 18 107/60 95 Nasal Cannula 2 02/26/24 11:49 02/26/24 11:49 02/26/24 11:49 02/26/24 11:49 02/26/24 11:49 02/26/24 11:49 02/26/24 11:49 Oxygen Flow Rate (L/min) 2 Oxygen Delivery Method Nasal Cannula Weight: 128 lb 15.985 oz Body Mass Index (BMI) 19.5 Intake & Output: Intake and Output for Last 24 Hours 02/24/24 02/25/24 02/26/24 23:59 23:59 23:59 Intake Total 736 / 736 629 / 629 1216.33 / 1216.33 Balance 736 / 736 629 / 629 1216.33 / 1216.33 Lab / Micro Data 02/26/24 05:40 02/26/24 05:40 Labs: Laboratory Results - last 24 hr 02/25/24 18:35: Urine Color Yellow, Urine Clarity Clear, Urine pH 5.0, Ur Specific [place] 1.020, Urine Protein 15 H, Urine Glucose (UA) 1000 H, Urine Ketones 5 H, Urine Occult Blood Negative, Urine Nitrite Negative, Urine Bilirubin Negative, Urine Urobilinogen Normal, Ur Leukocyte Esterase Negative, Urine RBC 0 SEEN, Urine WBC 0 SEEN, Ur Squamous Epith Cells 0 SEEN, Urine Bacteria 0 SEEN, Urine Mucus 0 SEEN 02/26/24 05:40: WBC 13.1 H, RBC 3.08 L, Hgb 9.3 L, Hct 28.3 L, MCV 91.9, MCH 30.2, MCHC 32.9, RDW Std Deviation 46.8 H, RDW Coeff of Edita 13.8, Plt Count 130 L, MPV 10.4, Immature Gran % (Auto) 0.400, Neut % (Auto) 77.6 H, Lymph % (Auto) 15.8 L, [place] % (Auto) 5.7, Eos % (Auto) 0.2, Baso % (Auto) 0.3, Absolute Neuts (auto) 10.2 H, Absolute Lymphs (auto) 2.07, Nucleated RBC % 0, Sodium 142, Potassium 2.7 L*, Chloride 112 H, Carbon Dioxide 25.0, Anion Gap 5, BUN 7, Creatinine 0.85, Estim Creat Clear Calc 56.07, Est GFR (MDRD) Af Amer 85, Est GFR (MDRD) Non-Af 70, BUN/Creatinine Ratio 8.2 L, Glucose 145 H, Calcium 7.6 L, Magnesium 1.6 02/26/24 13:15: Sodium Cancelled, Potassium Cancelled, Chloride Cancelled, Carbon Dioxide Cancelled, Anion Gap Cancelled, BUN Cancelled, Creatinine Cancelled, Estim Creat Clear Calc Cancelled, Est GFR (MDRD) Af Amer Cancelled, Est GFR (MDRD) Non-Af Cancelled, BUN/Creatinine Ratio Cancelled, Glucose Cancelled, Calcium Cancelled Micro: Microbiology 02/25/24 18:35 Urine, Clean Catch Legionella Antigen - Final 02/25/24 18:35 Urine, Clean Catch Streptococcus pneumoniae Antigen (M - Final 02/21/24 22:45 Stool Enteric Bacteriology - Final 02/21/24 22:45 Stool C. difficile GDH Antigen & Toxins - Final 02/21/24 22:45 Stool Clostridioides difficile (PCR) - Final 02/21/24 16:20 Stool Stool Occult Blood (EDUARDO) - Final Occult Blood Positive Radiography Diagnostic Testing: Radiology Impression Chest/Abdomen/Pelvis CT 02/26/24 09:09 IMPRESSION: Persistent submucosal thickening in the distal transverse, throughout the descending and sigmoid colon consistent with a diffuse colitis. This is likely infectious or inflammatory. There is pericolonic inflammatory stranding but no perforation or abscess noted Stable 4.6 cm parapelvic cyst in the left kidney. No specific follow-up needed New free-flowing bilateral pleural effusions with bibasilar atelectasis Degenerative bony changes Diffuse atherosclerosis Electronically Signed: Shan Mckeon MD at 13:20 EDT , Physical Exam Const alert, oriented x3, no apparent distress and average body habitus Constitutional Narrative: frail, in moderate discomfort due to pain General Appearance: cooperative, well kempt and well developed Orientation / Consciousness: awake, oriented to person, oriented to place and oriented to time HEENT normocephalic, head/scalp atraumatic, hearing grossly normal bilaterally and moist oral mucous membranes Eyes PERRL, EOMs intact bilaterally and conjunctivae normal Neck no lymphadenopathy, supple, no JVD, thyroid normal and no carotid bruits General: trachea midline Lymph Lymphatic: no lymphadenopathy noted and no lymphedema noted Resp normal respiratory effort, normal air movement, no retractions, no use of accessory muscles and clear to auscultation bilaterally Auscultation: Negative for rales, rhonchi or wheezes Cardio regular rate, regular rhythm, S1 normal heart sound, S2 normal heart sound, no murmurs, no rub and no gallops GI normal to inspection, nondistended, normoactive bowel sounds GI Narrative: moderatel lower abdominal tenderness, no guarding or rebound tenderness Extremity normal capillary refill, no clubbing, cyanosis or edema and no calf tenderness General Extremity: no tenderness to palpation of joints or extremities Skin no rashes or lesions noted General Skin Exam: no breakdown Neuro oriented x3, CN's II-XII intact bilaterally, moves all extremities, no focal motor deficits, no sensory deficits noted and deep tendon reflexes 2+ bilaterally Neuro Narrative: Patient has a mild speech impediment Sensorium / Orientation: awake and alert Motor Exam: strength 5/5 throughout and general weakness Psych thought process normal, cooperative and affect normal Appearance: appropriate Assessment & Plan Assessment/Plan (1) CVA (cerebral vascular accident): PLAN: Plan 69-year-old with unfortunate recent diagnosis of Recurrent right-sided weaknesswith spasticity secondary to possible underlying CVA. ? I am not sure why patient developed worsening constipation. Likely is medication side effect. She is on aspirin 81 milligrams a day. As she takes pantoprazole 40 mg twice a day. I think she needs undergo evaluation of her GI tract to see if she has any signs and symptoms of ischemic disease, peptic ulcerdisease, chronic changes such as Lukasz's erosions, angiodysplasia, gastroesophageal reflux disease. Findings from colonoscopy Impression: - Rectal prolapse. - Diverticulosis in the recto-sigmoid colon, in the sigmoid colon and at the hepatic flexure. - Patchy moderate inflammation was found in the sigmoid colon, in the descending colon, at the splenic flexure, at the hepatic flexure and in the ascending colon secondary to ischemic colitis. Biopsied. - The examination was otherwise normal. Recommendation: - [facility]. - Resume previous diet. - Continue present medications. - Await pathology results. -This is ischemic colitis secondary to severe constipation. The goal is an aggressive bowel regimen. 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 She does take baclofen with narcotics at home and has a history of chronic idiopathic constipation. She was determined to have ischemic colitis in the setting of diverticular disease and mild sigmoid colitisassociated with diverticulosis. Recommend to Dulcolax 5 mg twice a day. If sheis gone but not gone completely then she will need to add MiraLAX on a daily basis. 02/25/2024-we started on bowel regimen yesterday. And she has been having bowel movements without straining. I cannot explain why her appetite is poor. She does have a history of anxiety and mild depression. At this time she is not on anything for anxiety or depression. I think that could be contributing to some to her fatigue, weakness and poor appetite. 02/26/2024-I still think that she is exhibiting signs of cramping, abdominal pain and diarrhea resulting in ischemic colitis. Her stools are PCR positive for toxigenic C. difficile but there antigen negative for C. difficile. I will start her on empiric oral vancomycin. She should also get started on a probiotic and low-dose budesonide therapy for the intermittent colitis that seenon imaging. She also needs to be on scheduled Bentyl for the cramping. 02/27/24 1421 <Electronically signed by Shan Friend DO> Cosigner Signature (if applicable): CC: ~ Signed [facility] Work Phone: 1(109) 759-421804-07-2024 Progress note Author Heike Horta [facility] February 27, 2024 11:22am Note Date/Time February 27, 2024 8:[address] [facility] Medical Records Department [address] [place] [address] Progress Note 02/27/24 0839 MR#: [id number] Acct: [id number] Name: MANSI CARO Rep #:[id number] : 1955 69 From: Heike Horta MD PCP: Dr. Adrienne Byers, Status:ADM IN Location: [place] [address]-1 Subjective Subjective Patient seen and examined. She says her abdominal pain has improved slightly and rates it at between 6-7/10. She thinks it has improved since she was made n.p.o. yesterday. She denies any nausea vomiting or any other symptoms. Reviewof systems otherwise negative. Objective Data Objective Data Vital Signs: Vital Signs Temp Pulse Resp BP Pulse Ox O2 Del Method O2 Flow Rate 98.4 F 72 16 109/53 L 98 Room Air 2 02/27/24 03:15 02/27/24 03:15 02/27/24 03:15 02/27/24 03:15 02/27/24 03:15 02/27/24 04:00 02/26/24 22:00 Oxygen Flow Rate (L/min) 2 Oxygen Delivery Method Room Air Weight: 128 lb 15.985 oz Body Mass Index (BMI) 19.5 Intake & Output: Intake and Output for Last 24 Hours 02/25/24 02/26/24 02/27/24 23:59 23:59 23:59 Intake Total 629 / 629 4167.33 / 4167.33 1050 / 1050 Output Total 550 / 550 Balance 629 / 629 4167.33 / 4067.33 500 / 500 Lab / Micro Data 02/27/24 06:07 02/27/24 06:07 Labs: Laboratory Results - last 24 hr 02/26/24 13:15: Sodium Cancelled, Potassium Cancelled, Chloride Cancelled, Carbon Dioxide Cancelled, Anion Gap Cancelled, BUN Cancelled, Creatinine Cancelled, Estim Creat Clear Calc Cancelled, Est GFR (MDRD) Af Amer Cancelled, Est GFR (MDRD) Non-Af Cancelled, BUN/Creatinine Ratio Cancelled, Glucose Cancelled, Calcium Cancelled 02/26/24 17:10: Sodium 140, Potassium 3.9, Chloride 113 H, Carbon Dioxide 25.0, Anion Gap 2 L, BUN 8, Creatinine 0.75, Estim Creat Clear Calc 59.58, Est GFR (MDRD) Af Amer 99, Est GFR (MDRD) Non-Af 81, BUN/Creatinine Ratio 10.7, Glucose 145 H, Calcium 7.7 L 02/27/24 06:07: WBC 6.2, RBC 2.71 L, Hgb 8.1 L, Hct 25.6 L, MCV 94.5, MCH 29.9, MCHC 31.6 L, RDW Std Deviation 48.5 H, RDW Coeff of Edita 14.3, Plt Count 117 L, MPV 10.6, Immature Gran % (Auto) 0.300, Neut % (Auto) 69.4, Lymph % (Auto) 22.4,[place] % (Auto) 6.2, Eos % (Auto) 1.5, Baso % (Auto) 0.2, Absolute Neuts (auto) 4.3, Absolute Lymphs (auto) 1.38, Nucleated RBC % 0, Sodium 144, Potassium 3.7, Chloride 118 H, Carbon Dioxide 24.0, Anion Gap 2 L, BUN 6 L, Creatinine 0.66, Estim Creat Clear Calc 59.58, Est GFR (MDRD) Af Amer 114, Est GFR (MDRD) Non-Af 94, BUN/Creatinine Ratio 9.1 L, Glucose 117 H, Calcium 8.0 L Micro: Microbiology 02/25/24 18:35 Urine, Clean Catch Legionella Antigen - Final 02/25/24 18:35 Urine, Clean Catch Streptococcus pneumoniae Antigen (M - Final 02/21/24 22:45 Stool Enteric Bacteriology - Final 02/21/24 22:45 Stool C. difficile GDH Antigen & Toxins - Final 02/21/24 22:45 Stool Clostridioides difficile (PCR) - Final 02/21/24 16:20 Stool Stool Occult Blood (EDUARDO) - Final Occult Blood Positive Radiography Diagnostic Testing: Radiology Impression Chest/Abdomen/Pelvis CT 02/26/24 09:09 IMPRESSION: Persistent submucosal thickening in the distal transverse, throughout the descending and sigmoid colon consistent with a diffuse colitis. This is likely infectious or inflammatory. There is pericolonic inflammatory stranding but no perforation or abscess noted Stable 4.6 cm parapelvic cyst in the left kidney. No specific follow-up needed New free-flowing bilateral pleural effusions with bibasilar atelectasis Degenerative bony changes Diffuse atherosclerosis Electronically Signed: Shan Mckeon MD at 13:20 EDT , Physical Exam Const alert, oriented x3, no apparent distress and average body habitus Constitutional Narrative: frail, in minimal discomfort today. General Appearance: cooperative, well kempt and well developed Orientation / Consciousness: awake, oriented to person and oriented to time HEENT normocephalic, head/scalp atraumatic and hearing grossly normal bilaterally Mouth: dry mucous membranes Eyes PERRL, EOMs intact bilaterally and conjunctivae normal Neck no lymphadenopathy, supple, no JVD, thyroid normal and no carotid bruits General: trachea midline Lymph Lymphatic: no lymphadenopathy noted and no lymphedema noted Resp normal respiratory effort, normal air movement, no retractions, no use of accessory muscles and clear to auscultation bilaterally Auscultation: Negative for rales, rhonchi or wheezes Cardio regular rate, regular rhythm, S1 normal heart sound, S2 normal heart sound, no murmurs, no rub and no gallops GI normal to inspection, nondistended, normoactive bowel sounds, soft to palpation,non-tender and non-distended GI Narrative: mild lower abdominal tenderness, no guarding or rebound tenderness Extremity normal capillary refill, no clubbing, cyanosis or edema and no calf tenderness General Extremity: no tenderness to palpation of joints or extremities Skin no rashes or lesions noted General Skin Exam: no breakdown Neuro oriented x3, CN's II-XII intact bilaterally, moves all extremities, no focal motor deficits, no sensory deficits noted and deep tendon reflexes 2+ bilaterally Sensorium / Orientation: awake and alert Motor Exam: strength 5/5 throughout and general weakness Psych thought process normal, cooperative and affect normal Appearance: appropriate Assessment & Plan Assessment/Plan (1) Gastrointestinal bleeding, lower: (2) Colitis: PLAN: Plan #Acute colitis * Was admitted with a complaint of bright red rectal bleeding left lower quadrant abdominal pain. CT of the abdomen and pelvis showed new inflammation along the length of the descending colon concerning for infectious or inflamma tory colitis * colonoscopy showed diverticulosis in the rectosigmoid colon, sigmoid colon and hepatic flexure, as well as patchy moderate inflammation in the sigmoid colon, descending colon and at the heaptic and splenic flexure and in the ascending colon due to ischemic colitis. * Antibiotics broadened to vancomycin and Zosyn after she continued to have a fever. Fever has now resolved. * CT of the chest abdomen and pelvis showed persistent BX submucosal thickening in the distal transverse, throughout the descending and sigmoid colon consistent with a diffuse colitis with pericolonic inflammatory stranding but no perforation or abscess and new free-flowing bilateral pleural effusions with bibasilar atelectasis. * Continuing IV vancomycin and Zosyn. White cell count is trended down from 13.1 yesterday to 6. * GI on board. Keep continue patient on n.p.o. status * continue hydration with iVF. O avoid hypotension as it can worsen ischemic colitis * #Bilateral pleural effusions * chest CT shwoed bilateral free flowing pleural effusions. * patient currently on room air. Had previously been on 2 L of oxygen. * Per records, and cumulative positive fluid balance by 14,405 mL. I doubt this is acute rate as patient does have a Juarze catheter in situ and has been using the bathroom on her own which a urine is not adequately being measured. * Will consider diuresis if patient requires increasing oxygen amounts. * check BNP. * Echo from September 2023 showed EF of 55% and no evidence of diastolic dysfunction with no regional wall motion abnormality seen. #Hypotension: resolved. #Lower GI bleed: Due to acute colitis as above. Resolved #SUJATHA: resolved. #Anemia: * Patient has had acute anemia with hemoglobin of 8.1. * Hemoglobin on 03/11/2024 was 12.2 but this is likely due to acute blood loss anemia from GI bleed due to ischemic colitis. GI on board. * Will monitor and if hemoglobin trends to less than 7, will consider transfusion. #Type 2 diabetes mellitus: lantus resumed. ISS. Accuchecks ACHS #History of ischemic cardiomyopathy, s/p biventricular ICD: stable. #Benign essential hypertension:metoprolol and entresto resumed. Spironolactone remains on hold #HFpEF: on entresto and metoprolol. SPironolactone on hold #History of cerebral palsy: Stable #History of CVA: On aspirin and Plavix on hold due to the GI bleed #Hyperlipidemia: On statin #Anxiety and depression: on citalopram and clonazepam #Left upper renal pole cyst:per radiologist, no further imaging required. DVT prophylaxis: SCDs. Disposition: awaiting placement Charges/Coding Visit Charges Inpatient E&M: 71448 Subs Hosp L2 02/27/24 1122 <Electronically signed by Heike Horta MD> Heike Horta MD Cosigner Signature (if applicable): CC: ~ Signed [facility] Work Phone: 1(628) 453-709904-06-2024 Progress note Author [facility] February 26, 2024 2:42pm Note Date/Time February 26, 2024 9:[address] [facility] Medical Records Department [address] [place] [address] Progress Note 02/26/24911 MR#: [id number] Acct: [id number] Name: MANSI CARO Rep #:[id number] : 1955 69 From: Heike Horta MD PCP: Dr. Adrienne Byers, DO Status:ADM IN [id number] Subjective Subjective Patient seen and examined. was by her bedside. Patient continues to have lower abdominal pain. Her white count is down to 13.1 today. Potassium isalso 2.7. She is having diarrhea. She also continues to spike a fever. Reviewof systems otherwise negative. Objective Data Objective Data Vital Signs: Vital Signs Temp Pulse Resp BP Pulse Ox O2 Del Method O2 Flow Rate 99.7 F H 71 20 H 102/54 L 94 Nasal Cannula 2 02/26/24 02:59 02/26/24 02:59 04/06/24 02:59 02/26/24 02:59 02/26/24 07:35 02/26/24 07:35 02/26/24 07:35 Oxygen Flow Rate (L/min) 2 Oxygen Delivery Method Nasal Cannula Weight: 128 lb 15.985 oz Body Mass Index (BMI) 19.5 Intake & Output: Intake and Output for Last 24 Hours 02/24/24 02/25/24 02/26/24 23:59 23:59 23:59 Intake Total 736 / 736 629 / 629 300 / 300 Balance 736 / 736 629 / 629 300 / 300 Lab / Micro Data 02/26/24 05:40 02/26/24 05:40 Labs: Laboratory Results - last 24 hr 02/25/24 18:35: Urine Color Yellow, Urine Clarity Clear, Urine pH 5.0, Ur Specific [place] 1.020, Urine Protein 15 H, Urine Glucose (UA) 1000 H, Urine Ketones 5 H, Urine Occult Blood Negative, Urine Nitrite Negative, Urine Bilirubin Negative, Urine Urobilinogen Normal, Ur Leukocyte Esterase Negative, Urine RBC 0 SEEN, Urine WBC 0 SEEN, Ur Squamous Epith Cells 0 SEEN, Urine Bacteria 0 SEEN, Urine Mucus 0 SEEN 02/26/24 05:40: WBC 13.1 H, RBC 3.08 L, Hgb 9.3 L, Hct 28.3 L, MCV 91.9, MCH 30.2, MCHC 32.9, RDW Std Deviation 46.8 H, RDW Coeff of Edita 13.8, Plt Count 130 L, MPV 10.4, Immature Gran % (Auto) 0.400, Neut % (Auto) 77.6 H, Lymph % (Auto) 15.8 L, [place] % (Auto) 5.7, Eos % (Auto) 0.2, Baso % (Auto) 0.3, Absolute Neuts (auto) 10.2 H, Absolute Lymphs (auto) 2.07, Nucleated RBC % 0, Sodium 142, Potassium 2.7 L*, Chloride 112 H, Carbon Dioxide 25.0, Anion Gap 5, BUN 7, Creatinine 0.85, Estim Creat Clear Calc 56.07, Est GFR (MDRD) Af Amer 85, Est GFR (MDRD) Non-Af 70, BUN/Creatinine Ratio 8.2 L, Glucose 145 H, Calcium 7.6 L, Magnesium 1.6 Micro: Microbiology 02/25/24 18:35 Urine, Clean Catch Legionella Antigen - Final 02/25/24 18:35 Urine, Clean Catch Streptococcus pneumoniae Antigen (M - Final 02/21/24 22:45 Stool Enteric Bacteriology - Final 02/21/24 22:45 Stool C. difficile GDH Antigen & Toxins - Final 02/21/24 22:45 Stool Clostridioides difficile (PCR) - Final 02/21/24 16:20 Stool Stool Occult Blood (EDUARDO) - Final Occult Blood Positive Radiography Diagnostic Testing: Radiology Impression Chest X-Ray 02/25/24 10:16 IMPRESSION: Blunting of both costophrenic angles with small bilateral pleural effusions with bibasilar atelectasis and/or infiltrates worse at the left lung base. Follow-up recommended. Electronically Signed: Yousif Elena MD at 13:42 EDT , Physical Exam Const alert, oriented x3, no apparent distress and average body habitus Constitutional Narrative: frail, in moderate discomfort due to pain General Appearance: cooperative, well kempt and well developed Orientation / Consciousness: awake, oriented to person, oriented to place and oriented to time HEENT normocephalic, head/scalp atraumatic, hearing grossly normal bilaterally and moist oral mucous membranes Eyes PERRL, EOMs intact bilaterally and conjunctivae normal Neck no lymphadenopathy, supple, no JVD, thyroid normal and no carotid bruits General: trachea midline Lymph Lymphatic: no lymphadenopathy noted and no lymphedema noted Resp normal respiratory effort, normal air movement, no retractions, no use of accessory muscles and clear to auscultation bilaterally Auscultation: Negative for rales, rhonchi or wheezes Cardio regular rate, regular rhythm, S1 normal heart sound, S2 normal heart sound, no murmurs, no rub and no gallops GI normal to inspection, nondistended, normoactive bowel sounds GI Narrative: moderatel lower abdominal tenderness, no guarding or rebound tenderness Extremity normal capillary refill, no clubbing, cyanosis or edema and no calf tenderness General Extremity: no tenderness to palpation of joints or extremities Skin no rashes or lesions noted General Skin Exam: no breakdown Neuro oriented x3, CN's II-XII intact bilaterally, moves all extremities, no focal motor deficits, no sensory deficits noted and deep tendon reflexes 2+ bilaterally Neuro Narrative: Patient has a mild speech impediment Sensorium / Orientation: awake and alert Motor Exam: strength 5/5 throughout and general weakness Psych thought process normal, cooperative and affect normal Appearance: appropriate Assessment & Plan Assessment/Plan (1) Gastrointestinal bleeding, lower: (2) Colitis: PLAN: Plan #Acute colitis * Was admitted with a complaint of bright red rectal bleeding left lower quadrant abdominal pain. CT of the abdomen and pelvis showed new inflammation along the length of the descending colon concerning for infectious or inflammatory colitis * colonoscopy showed diverticulosis in the rectosigmoid colon, sigmoid colon and hepatic flexure, as well as patchy moderate inflammation in the sigmoid colon, descending colon and at the heaptic and splenic flexure and in the ascending colon due to ischemic colitis. * continues to have abdominal pain today. Has also been spiking a fever * will order CT of the chest, abdomen and pelvis to evaluate for source of fever * antibiotics broadened to IV vancomycin, zosyn and azithromycin * WBC has trended up to 13.1 today. * Blood cultures and urine cultures ordered. Urine for strep and Legionella negative. * Chest x-ray showed atelectasis versus infiltrates worse on the left lower lung base with blunting of costophrenic angles and small bilateral pleural effusions. * GI on board. Remains on Tylenol. * Will keep n.p.o. in light of abdominal pain and diarrhea as well as fever. * #Hypotension: resolved.BP #Lower GI bleed: Due to acute colitis as above. Resolved #SUJATHA: resolved. #Type 2 diabetes mellitus: lantus resumed. ISS. Accuchecks ACHS #History of ischemic cardiomyopathy, s/p biventricular ICD. #Benign essential hypertension:metoprolol and entresto resumed #History of cerebral palsy: Stable #History of CVA: On aspirin and Plavix on hold due to the GI bleed #Hyperlipidemia: On statin #Anxiety and depression: #Left upper renal pole cyst:per radiologist, no further imaging required. DVT prophylaxis: SCDs. Disposition: awaiting placement Charges/Coding Visit Charges Inpatient E&M: 58878 [facility] Hosp L3 02/26/24 1442 <Electronically signed by Heike Horta MD> Heike Horta MD Cosigner Signature (if applicable): CC: ~ Signed [facility] Work Phone: 1(663) 338-141904-06-2024 Consult note Author Yoandy Marcial [facility] February 26, 2024 11:30am Note Date/Time February 26, 2024 11:2 6am [facility] Medical Records Department [address] [place] [address] Pharmacokinetic/Renal -Consult 02/26/24 1126 MR#: [id number] Acct: [id number] Name: MANSI CARO Rep #:[id number] : 1955 69 From: Yoandy Marcial PCP: Dr. Adrienne Byers, DO Status:ADM IN Location: [place] [address] Consult Antibiotic Management Pharmacy has been consulted to manage selected antibiotic: Vancomycin Type of Intervention Type of Consult: New start Suspected Infection Suspected Infection: Other (Ischemic colitis) Prior Doses of Antibiotics Prior Doses of Antibiotics Received/Current Regimen: Received loading dose 1500mg iv x 1 4.6.24 @1000 Labs Labs: Sodium 142 mmol/L (136-145) 02/26/24 05:40 Potassium 2.7 mmol/L (3.5-5.1) L* 02/26/24 05:40 Chloride 112 mmol/L (98-107) H 02/26/24 05:40 Carbon Dioxide 25.0 mmol/L (21.0-32.0) 02/26/24 05:40 Anion Gap 5 (5-15) 02/26/24 05:40 BUN 7 mg/dL (7-18) 02/26/24 05:40 Creatinine 0.85 mg/dL (0.55-1.02) 02/26/24 05:40 Est GFR (MDRD) Af Amer 85 mL/min (>60) 02/26/24 05:40 Est GFR (MDRD) Non-Af 70 mL/min (>60) 02/26/24 05:40 BUN/Creatinine Ratio 8.2 RATIO (10-20) L 02/26/24 05:40 Glucose 145 mg/dL (74-106) H 02/26/24 05:40 Microbiology Microbiology: Microbiology 02/25/24 18:35 Urine, Clean Catch Legionella Antigen - Final 02/25/24 18:35 Urine, Clean Catch Streptococcus pneumoniae Antigen (M - Final 02/21/24 22:45 Stool Enteric Bacteriology - Final 02/21/24 22:45 Stool C. difficile GDH Antigen & Toxins - Final 02/21/24 22:45 Stool Clostridioides difficile (PCR) - Final 02/21/24 16:20 Stool Stool Occult Blood (EDUARDO) - Final Occult Blood Positive Dosing Weight Weight used for dosin.5 kg Estimated Creatinine Clearance Estimated Creatinine Clearance: 56ml/min Goal Trough Goal Trough: 15-20 mcg/mL Pharmacy Plan for Drug Dosing Pharmacy Plan for Drug Dosing: Recommend starting dose of 500mg iv q12h with trough before 4th total dose. Pharmacy Service will continue to monitor and adjust dosing as required. Follow-Up Labs Follow-Up Labs: Trough: Vancomycin (4.7.24 @2130) 02/26/24 1130 <Electronically signed by Yoandy Marcial> Date _ Yoandy Gallo Signature (if applicable): Date CC: ~ Signed [facility] Work Phone: 1(860) 508-641404-05-2024 Progress note Author Shan Friend [facility] February 25, 2024 5:51pm Note Date/Time February 25, 2024 5:51 pm [facility] System Medical Records Department [address] [place] [address] Progress Note - GI 02/25/24 1749 MR#: [id number] Acct: [id number] Name: MANSI CARO Rep #:[id number] : 1955 69 From: Shan Lockett DO PCP: Dr. Adrienne Byers, DO Status:ADM IN Location: CT3 [id number] Subjective Subjective Patient's appetite is poor and she does have some mild nausea. She denies any chest pain or shortness of breath but does complain of some fatigue. Objective Data Objective Data Vital Signs: Vital Signs Temp Pulse Resp BP Pulse Ox O2 Del Method O2 Flow Rate 98.7 F 95 14 127/56 H 93 Room Air 2 02/25/24 14:06 02/25/24 14:06 02/25/24 14:06 02/25/24 14:06 02/25/24 14:06 02/25/24 14:06 02/25/24 08:00 Oxygen Flow Rate (L/min) 2 Oxygen Delivery Method Room Air Weight: 128 lb 15.985 oz Body Mass Index (BMI) 19.5 Intake & Output: Intake and Output for Last 24 Hours 02/23/24 02/24/24 02/25/24 23:59 23:59 23:59 Intake Total 4286.0 / 4286.0 736 / 736 479 / 479 Balance 4286.0 / 4286.0 736 / 736 479 / 479 Lab / Micro Data 02/25/24 06:13 02/25/24 06:13 Labs: Laboratory Results - last 24 hr 02/25/24 06:13: WBC 9.2, RBC 3.16 L, Hgb 9.6 L, Hct 29.3 L, MCV 92.7, MCH 30.4, MCHC 32.8, RDW Std Deviation 45.4 H, RDW Coeff of Edita 13.3, Plt Count 151, MPV 10.6, Immature Gran % (Auto) 0.200, Neut % (Auto) 82.7 H, Lymph % (Auto) 10.3 L,[place] % (Auto) 6.3, Eos % (Auto) 0.3, Baso % (Auto) 0.2, Absolute Neuts (auto) 7.6, Absolute Lymphs (auto) 0.95, Nucleated RBC % 0, Sodium 142, Potassium 3.2 L, Chloride 114 H, Carbon Dioxide 24.0, Anion Gap 4 L, BUN 6 L, Creatinine 0.78, Estim Creat Clear Calc 59.58, Est GFR (MDRD) Af Amer 93, Est GFR (MDRD) Non-Af 77, BUN/Creatinine Ratio 7.7 L, Glucose 146 H, Calcium 7.9 L Micro: Microbiology 02/21/24 22:45 Stool Enteric Bacteriology - Final 02/21/24 22:45 Stool C. difficile GDH Antigen & Toxins - Final 02/21/24 22:45 Stool Clostridioides difficile (PCR) - Final 02/21/24 16:20 Stool Stool Occult Blood (EDUARDO) - Final Occult Blood Positive Radiography Diagnostic Testing: Radiology Impression Chest X-Ray 02/25/24 10:16 IMPRESSION: Blunting of both costophrenic angles with small bilateral pleural effusions with bibasilar atelectasis and/or infiltrates worse at the left lung base. Follow-up recommended. Electronically Signed: Yousif Elena MD at 13:42 EDT , Physical Exam Const alert, oriented x3, no apparent distress, average body habitus and healthy appearing Constitutional Narrative: frail General Appearance: cooperative, well kempt and well developed Orientation / Consciousness: awake, oriented to person, oriented to place and oriented to time HEENT normocephalic, head/scalp atraumatic, hearing grossly normal bilaterally and moist oral mucous membranes Eyes PERRL, EOMs intact bilaterally and conjunctivae normal Neck no lymphadenopathy, supple, no JVD, thyroid normal and no carotid bruits General: trachea midline Lymph Lymphatic: no lymphadenopathy noted and no lymphedema noted Resp normal respiratory effort, normal air movement, no retractions, no use of accessory muscles and clear to auscultation bilaterally Auscultation: Negative for rales, rhonchi or wheezes Cardio regular rate, regular rhythm, S1 normal heart sound, S2 normal heart sound, no murmurs, no rub and no gallops GI normal to inspection, nondistended, normoactive bowel sounds, soft to palpation,non-tender and non-distended Extremity normal capillary refill, no clubbing, cyanosis or edema and no calf tenderness General Extremity: no tenderness to palpation of joints or extremities Skin no rashes or lesions noted General Skin Exam: no breakdown Neuro oriented x3, CN's II-XII intact bilaterally, moves all extremities, no focal motor deficits, no sensory deficits noted and deep tendon reflexes 2+ bilaterally Sensorium / Orientation: awake and alert Motor Exam: strength 5/5 throughout and general weakness Psych thought process normal, cooperative and affect normal Appearance: appropriate Assessment & Plan Assessment/Plan (1) CVA (cerebral vascular accident): PLAN: Plan 69-year-old with unfortunate recent diagnosis of Recurrent right-sided weaknesswith spasticity secondary to possible underlying CVA. ? I am not sure why patient developed worsening constipation. Likely is medication side effect. She is on aspirin 81 milligrams a day. As she takes pantoprazole 40 mg twice a day. I think she needs undergo evaluation of her GI tract to see if she has any signs and symptoms of ischemic disease, peptic ulcerdisease, chronic changes such as Lukasz's erosions, angiodysplasia, gastroesophageal reflux disease. Findings from colonoscopy Impression: - Rectal prolapse. - Diverticulosis in the recto-sigmoid colon, in the sigmoid colon and at the hepatic flexure. - Patchy moderate inflammation was found in the sigmoid colon, in the descending colon, at the splenic flexure, at the hepatic flexure and in the ascending colon secondary to ischemic colitis. Biopsied. - The examination was otherwise normal. Recommendation: - [facility]. - Resume previous diet. - Continue present medications. - Await pathology results. -This is ischemic colitis secondary to severe constipation. The goal is an aggressive bowel regimen. 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 She does take baclofen with narcotics at home and has a history of chronic idiopathic constipation. She was determined to have ischemic colitis in the setting of diverticular disease and mild sigmoid colitisassociated with diverticulosis. Recommend to Dulcolax 5 mg twice a day. If sheis gone but not gone completely then she will need to add MiraLAX on a daily basis. 02/25/2024-we started on bowel regimen yesterday. And she has been having bowel movements without straining. I cannot explain why her appetite is poor. She does have a history of anxiety and mild depression. At this time she is not on anything for anxiety or depression. I think that could be contributing to some to her fatigue, weakness and poor appetite. Charges/Coding Visit Charges Inpatient E&M: 67494 [facility] Hosp L3 02/25/24 8317 <Electronically signed by Shan Friend > Cosigner Signature (if applicable): CC: ~ Signed [facility] Work Phone: 1(354) 603-723404-05-2024 Progress note Author Heike Horta [facility] February 25, 2024 4:51pm Note Date/Time February 25, 2024 10:4 1am [facility] Medical Records Department [address] [place] [address] Progress Note 02/25/24 1040 MR#: [id number] Acct: [id number] Name: MANSI CARO Rep #:[id number] : 1955 69 From: Heike Horta MD PCP: Dr. Adrienne Byers, DO Status:ADM IN Location: MS3 [id number] Subjective Subjective Patient seen and examined. was by her bedside. She says she felt weaker than usual. She is on 2 L of oxygen. She however denies any cough, chest pain, palpitations, dizziness, nausea vomiting or any other symptoms. Review of systems otherwise negative. Objective Data Objective Data Vital Signs: Vital Signs Temp Pulse Resp BP Pulse Ox O2 Del Method O2 Flow Rate 98.3 F 77 14 117/67 99 Nasal Cannula 2 02/25/24 08:00 02/25/24 08:00 02/25/24 08:00 02/25/24 08:00 02/25/24 08:00 02/25/24 08:00 02/25/24 08:00 Oxygen Flow Rate (L/min) 2 Oxygen Delivery Method Nasal Cannula Weight: 128 lb 15.985 oz Body Mass Index (BMI) 19.5 Intake & Output: Intake and Output for Last 24 Hours 02/23/24 02/24/24 02/25/24 23:59 23:59 23:59 Intake Total 4286.0 / 4286.0 736 / 736 112 / 112 Balance 4286.0 / 4286.0 736 / 736 112 / 112 Lab / Micro Data 02/25/24 06:13 02/25/24 06:13 Labs: Laboratory Results - last 24 hr 02/25/24 06:13: WBC 9.2, RBC 3.16 L, Hgb 9.6 L, Hct 29.3 L, MCV 92.7, MCH 30.4, MCHC 32.8, RDW Std Deviation 45.4 H, RDW Coeff of Edita 13.3, Plt Count 151, MPV 10.6, Immature Gran % (Auto) 0.200, Neut % (Auto) 82.7 H, Lymph % (Auto) 10.3 L,[place] % (Auto) 6.3, Eos % (Auto) 0.3, Baso % (Auto) 0.2, Absolute Neuts (auto) 7.6, Absolute Lymphs (auto) 0.95, Nucleated RBC % 0, Sodium 142, Potassium 3.2 L, Chloride 114 H, Carbon Dioxide 24.0, Anion Gap 4 L, BUN 6 L, Creatinine 0.78, Estim Creat Clear Calc 59.58, Est GFR (MDRD) Af Amer 93, Est GFR (MDRD) Non-Af 77, BUN/Creatinine Ratio 7.7 L, Glucose 146 H, Calcium 7.9 L Micro: Microbiology 02/21/24 22:45 Stool Enteric Bacteriology - Final 02/21/24 22:45 Stool C. difficile GDH Antigen & Toxins - Final 02/21/24 22:45 Stool Clostridioides difficile (PCR) - Final 02/21/24 16:20 Stool Stool Occult Blood (EDUARDO) - Final Occult Blood Positive Physical Exam Const alert, oriented x3, no apparent distress, average body habitus and healthy appearing Constitutional Narrative: frail General Appearance: cooperative, well kempt and well developed Orientation / Consciousness: awake, oriented to person, oriented to place and oriented to time HEENT normocephalic, head/scalp atraumatic, hearing grossly normal bilaterally and moist oral mucous membranes Eyes PERRL, EOMs intact bilaterally and conjunctivae normal Neck no lymphadenopathy, supple, no JVD, thyroid normal and no carotid bruits General: trachea midline Lymph Lymphatic: no lymphadenopathy noted and no lymphedema noted Resp normal respiratory effort, normal air movement, no retractions, no use of accessory muscles and clear to auscultation bilaterally Auscultation: Negative for rales, rhonchi or wheezes Cardio regular rate, regular rhythm, S1 normal heart sound, S2 normal heart sound, no murmurs, no rub and no gallops GI normal to inspection, nondistended, normoactive bowel sounds, soft to palpation,non-tender and non-distended Extremity normal capillary refill, no clubbing, cyanosis or edema and no calf tenderness General Extremity: no tenderness to palpation of joints or extremities Skin no rashes or lesions noted General Skin Exam: no breakdown Neuro oriented x3, CN's II-XII intact bilaterally, moves all extremities, no focal motor deficits, no sensory deficits noted and deep tendon reflexes 2+ bilaterally Sensorium / Orientation: awake and alert Motor Exam: strength 5/5 throughout and general weakness Psych thought process normal, cooperative and affect normal Appearance: appropriate Assessment & Plan Assessment/Plan (1) Gastrointestinal bleeding, lower: (2) Colitis: PLAN: Plan #Acute colitis * Was admitted with a complaint of bright red rectal bleeding left lower quadrant abdominal pain. CT of the abdomen and pelvis showed new inflammation along the length of the descending colon concerning for infectious or inflammatory colitis * colonoscopy showed diverticulosis in the rectosigmoid colon, sigmoid colon and hepatic flexure, as well as patchy moderate inflammation in the sigmoid colon, descending colon and at the heaptic and splenic flexure and in the ascending colon due to ischemic colitis. * had mild tenderness with eating but its now better * had a fever overnight. Also now requiring 2 L of oxygen. Will get chest x- ray. * Continue IV Unasyn. * adjust meds based on CXR finding * now on oral diet. * per GI, she has ischemic colitis secondary to severe constipation. * GI on board * on tylenol for fever #Hypotension: resolved.BP meds resumed #Lower GI bleed: Due to acute colitis as above. Resolved #SUJATHA: resolved. #Type 2 diabetes mellitus: lantus resumed. ISS. Accuchecks ACHS #History of ischemic cardiomyopathy, s/p biventricular ICD. #Benign essential hypertension:metoprolol and entresto resumed #History of cerebral palsy: Stable #History of CVA: On aspirin and Plavix on hold due to the GI bleed #Hyperlipidemia: On statin #Anxiety and depression: #Left upper renal pole cyst:per radiologist, no further imaging required. DVT prophylaxis: SCDs. Disposition: awaiting placement Charges/Coding Visit Charges Inpatient E&M: 40430 [facility] Hosp L3 02/25/24 1522 <Electronically signed by Heike Horta MD> Heike Horta MD Cosigner Signature (if applicable): CC: ~ Signed ADDENDUM by Dr. Heike Horta MD on 02/25/24 at 1651 Addendum Patient noted to be febrile today. CXR showed evidence of left lower lobe atelectasis v infiltrates. She is requiring 2L of oxygen. Urine for strep and legionella ordered. Antibiotics broadened to IV zosyn. IV azithromycin added on.Blood cultures and urinalysis ordered. 02/25/24 1651 <Electronically signed by Heike baca MD> Date _ Heike Horta MD Cosigner Signature (if applicable): Date cc: ~* Signed [facility] Work Phone: 1(440) 132-656704-04-2024 Progress note Author Shan Lockett [facility] February 24, 2024 5:08pm Note Date/Time February 24, 2024 5:07 pm [facility] Medical Records Department [address] [place] [address] Progress Note - GI 02/24/24 1705 MR#: [id number] Acct: [id number] Name: MANSI CARO Rep #:[id number] : 1955 69 From: Shan Lockett DO PCP: Dr. Adrienne Byers, DO Status:ADM IN Location: [place] [address] Subjective Subjective Patient had 1 bowel movement. She had a little bit of cramping but it improved after she had a bowel movement. Objective Data Objective Data Vital Signs: Vital Signs Temp Pulse Resp BP Pulse Ox O2 Del Method 98 F 60 16 136/62 H 94 Room Air 02/24/24 11:30 02/24/24 11:30 02/24/24 11:30 02/24/24 11:30 02/24/24 11:30 02/24/24 11:30 Oxygen Delivery Method Room Air Weight: 128 lb 15.985 oz Body Mass Index (BMI) 19.5 Intake & Output: Intake and Output for Last 24 Hours 02/22/24 02/23/2424 23:59 23:59 23:59 Intake Total 2975.02 / 2975.02 4286.0 / 4286.0 624 / 624 Balance 2975.02 / 2975.02 4286.0 / 4286.0 624 / 624 Lab / Micro Data 02/24/24 06:17 02/24/24 06:17 Labs: Laboratory Results - last 24 hr 02/24/24 06:17: WBC 5.8, RBC 2.98 L, Hgb 8.9 L, Hct 28.0 L, MCV 94.0, MCH 29.9, MCHC 31.8 L, RDW Std Deviation 46.8 H, RDW Coeff of Edita 13.6, Plt Count 122 L, MPV 10.7, Immature Gran % (Auto) 0.200, Neut % (Auto) 54.1, Lymph % (Auto) 37.2,[place] % (Auto) 6.1, Eos % (Auto) 2.2, Baso % (Auto) 0.2, Absolute Neuts (auto) 3.1, Absolute Lymphs (auto) 2.15, Nucleated RBC % 0, Sodium 145, Potassium 3.5, Chloride 117 H, Carbon Dioxide 24.0, Anion Gap 4 L, BUN 9, Creatinine 0.75, Estim Creat Clear Calc 59.58, Est GFR (MDRD) Af Amer 98, Est GFR (MDRD) Non-Af 81, BUN/Creatinine Ratio 12.0, Glucose 137 H, Calcium 8.2 L Micro: Microbiology 02/21/24 22:45 Stool Enteric Bacteriology - Final 02/21/24 22:45 Stool C. difficile GDH Antigen & Toxins - Final 02/21/24 22:45 Stool Clostridioides difficile (PCR) - Final 02/21/24 16:20 Stool Stool Occult Blood (EDUARDO) - Final Occult Blood Positive Physical Exam Const alert, oriented x3, no apparent distress, average body habitus and healthy appearing Constitutional Narrative: frail General Appearance: cooperative, well kempt and well developed Orientation / Consciousness: awake HEENT normocephalic, head/scalp atraumatic, hearing grossly normal bilaterally and moist oral mucous membranes Eyes PERRL, EOMs intact bilaterally and conjunctivae normal Neck no lymphadenopathy, supple, no JVD, thyroid normal and no carotid bruits General: trachea midline Lymph Lymphatic: no lymphadenopathy noted and no lymphedema noted Resp normal respiratory effort, normal air movement, no retractions, no use of accessory muscles and clear to auscultation bilaterally Auscultation: Negative for rales, rhonchi or wheezes Cardio regular rate, regular rhythm, S1 normal heart sound, S2 normal heart sound, no murmurs, no rub and no gallops GI normal to inspection, nondistended, normoactive bowel sounds, soft to palpation and non-distended GI Narrative: minimal lower abdominal tenderness, no guarding or rebound tenderness Extremity normal capillary refill, no clubbing, cyanosis or edema and no calf tenderness General Extremity: no tenderness to palpation of joints or extremities Skin no rashes or lesions noted General Skin Exam: no breakdown Neuro oriented x3, CN's II-XII intact bilaterally, moves all extremities, no focal motor deficits, no sensory deficits noted and deep tendon reflexes 2+ bilaterally Sensorium / Orientation: awake and alert Motor Exam: strength 5/5 throughout and general weakness Psych thought process normal, cooperative and affect normal Appearance: appropriate Assessment & Plan Assessment/Plan (1) CVA (cerebral vascular accident): PLAN: Plan 69-year-old with unfortunate recent diagnosis of Recurrent right-sided weaknesswith spasticity secondary to possible underlying CVA. ? I am not sure why patient developed worsening constipation. Likely is medication side effect. She is on aspirin 81 milligrams a day. As she takes pantoprazole 40 mg twice a day. I think she needs undergo evaluation of her GI tract to see if she has any signs and symptoms of ischemic disease, peptic ulcerdisease, chronic changes such as Lukasz's erosions, angiodysplasia, gastroesophageal reflux disease. Findings from colonoscopy Impression: - Rectal prolapse. - Diverticulosis in the recto-sigmoid colon, in the sigmoid colon and at the hepatic flexure. - Patchy moderate inflammation was found in the sigmoid colon, in the descending colon, at the splenic flexure, at the hepatic flexure and in the ascending colon secondary to ischemic colitis. Biopsied. - The examination was otherwise normal. Recommendation: - [facility] to [facility] care. - Resume previous diet. - Continue present medications. - Await pathology results. -This is ischemic colitis secondary to severe constipation. The goal is an aggressive bowel regimen. 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 She does take baclofen with narcotics at home and has a history of chronic idiopathic constipation. She was determined to have ischemic colitis in the setting of diverticular disease and mild sigmoid colitisassociated with diverticulosis. Recommend to Dulcolax 5 mg twice a day. If sheis gone but not gone completely then she will need to add MiraLAX on a daily basis. 02/24/24 1707 <Electronically signed by Shan Lockett DO> Cosigner Signature (if applicable): CC: ~ Signed ADDENDUM by Shan Lockett DO on 02/24/24 at 1708 [facility] Codes Visit Charges Visit Charges: 88324 Subs Hosp L3 02/24/241707<Electronically signed by Shan Lockett DO> Cosigner Signature (if applicable): cc: ~* Signed [facility] Work Phone: 1(716) 203-844704-04-2024 Progress note Author Heike Horta [facility] February 24, 2024 3:42pm Note Date/Time February 24, 2024 9:[address] [facility] System Medical Records Department [address] [place] [address] Progress Note 02/24/24 0932 MR#: [id number] Acct: [id number] Name: MANSI CARO Rep #:[id number] : 1955 69 From: Heike Horta MD PCP: Dr. Adrienne Byers, Status:ADM IN Location: [place] [address] Subjective Subjective Patient seen and examined. She complained of some abdominal pain with eating yesterday. Review of systems is otherwise negative. Objective Data Objective Data Vital Signs: Vital Signs Temp Pulse Resp BP Pulse Ox O2 Del Method 98.8 F 63 18 141/55 H 93 Room Air 02/24/24 05:36 02/24/24 05:36 02/24/24 05:36 02/24/24 05:36 02/24/24 05:36 02/24/24 05:36 Oxygen Delivery Method Room Air Weight: 128 lb 15.985 oz Body Mass Index (BMI) 19.5 Intake & Output: Intake and Output for Last 24 Hours 04/02/24 04/03/24 04/04/24 23:59 23:59 23:59 Intake Total 2975.02 / 2975.02 4286.0 / 4286.0 200 / 200 Balance 2975.02 / 2975.02 4286.0 / 4286.0 200 / 200 Lab / Micro Data 02/24/24 06:17 02/24/24 06:17 Labs: Laboratory Results - last 24 hr 02/24/24 06:17: WBC 5.8, RBC 2.98 L, Hgb 8.9 L, Hct 28.0 L, MCV 94.0, MCH 29.9, MCHC 31.8 L, RDW Std Deviation 46.8 H, RDW Coeff of Edita 13.6, Plt Count 122 L, MPV 10.7, Immature Gran % (Auto) 0.200, Neut % (Auto) 54.1, Lymph % (Auto) 37.2,[place] % (Auto) 6.1, Eos % (Auto) 2.2, Baso % (Auto) 0.2, Absolute Neuts (auto) 3.1, Absolute Lymphs (auto) 2.15, Nucleated RBC % 0, Sodium 145, Potassium 3.5, Chloride 117 H, Carbon Dioxide 24.0, Anion Gap 4 L, BUN 9, Creatinine 0.75, Estim Creat Clear Calc 59.58, Est GFR (MDRD) Af Amer 98, Est GFR (MDRD) Non-Af 81, BUN/Creatinine Ratio 12.0, Glucose 137 H, Calcium 8.2 L Micro: Microbiology 02/21/24 22:45 Stool Enteric Bacteriology - Final 02/21/24 22:45 Stool C. difficile GDH Antigen & Toxins - Final 02/21/24 22:45 Stool Clostridioides difficile (PCR) - Final 02/21/24 16:20 Stool Stool Occult Blood (EDUARDO) - Final Occult Blood Positive Physical Exam Const alert, oriented x3, no apparent distress, average body habitus and healthy appearing Constitutional Narrative: frail General Appearance: cooperative, well kempt and well developed Orientation / Consciousness: awake HEENT normocephalic, head/scalp atraumatic, hearing grossly normal bilaterally and moist oral mucous membranes Eyes PERRL, EOMs intact bilaterally and conjunctivae normal Neck no lymphadenopathy, supple, no JVD, thyroid normal and no carotid bruits General: trachea midline Lymph Lymphatic: no lymphadenopathy noted and no lymphedema noted Resp normal respiratory effort, normal air movement, no retractions, no use of accessory muscles and clear to auscultation bilaterally Auscultation: Negative for rales, rhonchi or wheezes Cardio regular rate, regular rhythm, S1 normal heart sound, S2 normal heart sound, no murmurs, no rub and no gallops GI normal to inspection, nondistended, normoactive bowel sounds, soft to palpation and non-distended GI Narrative: minimal lower abdominal tenderness, no guarding or rebound tenderness Extremity normal capillary refill, no clubbing, cyanosis or edema and no calf tenderness General Extremity: no tenderness to palpation of joints or extremities Skin no rashes or lesions noted General Skin Exam: no breakdown Neuro oriented x3, CN's II-XII intact bilaterally, moves all extremities, no focal motor deficits, no sensory deficits noted and deep tendon reflexes 2+ bilaterally Sensorium / Orientation: awake and alert Motor Exam: strength 5/5 throughout and general weakness Psych thought process normal, cooperative and affect normal Appearance: appropriate Assessment & Plan Assessment/Plan (1) Gastrointestinal bleeding, lower: (2) Colitis: PLAN: Plan #Acute colitis * Was admitted with a complaint of bright red rectal bleeding left lower quadrant abdominal pain. CT of the abdomen and pelvis showed new inflammation along the length of the descending colon concerning for infectious or inflammatory colitis * colonoscopy showed diverticulosis in the rectosigmoid colon, sigmoid colon and hepatic flexure, as well as patchy moderate inflammation in the sigmoid colon, descending colon and at the heaptic and splenic flexure and in the ascending colon due to ischemic colitis. * had mild tenderness with eating yesterday * now on oral diet. * per GI, she has ischemic colitis secondary to severe constipation. * GI on board #Hypotension: resolved. resume BP meds #Lower GI bleed: Due to acute colitis as above. Resolved #SUJATHA: resolved. #Type 2 diabetes mellitus: lantus resumed. ISS. Accuchecks ACHS #History of ischemic cardiomyopathy, s/p biventricular ICD. #Benign essential hypertension: Metoprolol and Entresto on hold due to patient being hypotensive. Resume metoprolol today #History of cerebral palsy: Stable #History of CVA: On aspirin and Plavix on hold due to the GI bleed #Hyperlipidemia: On statin #Anxiety and depression: #Left upper renal pole cyst:per radiologist, no further imaging required. DVT prophylaxis: SCDs. Disposition: awaiting placement Charges/Coding Visit Charges Inpatient E&M: 77036 Subs Hosp L2 02/24/24 1542 <Electronically signed by Heike oHrta MD> Heike Horta MD Cosigner Signature (if applicable): CC: ~ Signed [facility] Work Phone: 1(727) 499-495904-03-2024 Consult note Author Shan Lockett [facility] February 23, 2024 5:03pm Note Date/Time February 21, 2024 5:[address] [facility] System Medical Records Department [address] [place] [address] Consultation - GI 02/21/24 1748 MR#: [id number] Acct: [id number] Name: MANSI CARO Rep #:[id number] : 1955 69 From: Shan Lockett DO PCP: Dr. Adrienne Byers, DO Status:ADM [place] Location: [place] [address] HPI Consult Data Date of Consult: 02/21/24 HPI Narrative Reason for Consultation: Lower GI bleed HPI Narrative: MANSI CARO, is a 69 F who presenting today due to generalized weakness over the past few months. reports that it has been worse over the past day, he has had to help assist her to the bathroom as she has been too weak to ambulate by herself which is abnormal for her. She reports that she has had suprapubic pain intermittently over the past month that occasionally radiates toher back. She is also had a productive cough over the past 3 to 4 days. She denies fevers, chills, chest pain, shortness of breath, nausea, and vomiting. As per her she reported as history of CP history, CKD stage II per GFR trending, HTN, HLD, Anxiety and Depression/Chronic insomnia, GERD, Hx CVA with remote L MCA with residual right lower extremity spasticity with questionable remote history of PFO per record, Diabetes mellitus type II, CAD s/p PCI, HFrEF/Hx AV fredi dysfunction/Ischemic Cardiomyopathy s/p AICD, RLS, recent admission 09/28/23- 10/01/23 following admission for confusion/altered speech as well as dizziness and blurred vision. She was out of the window to do anything medically such as tPA for presumed ischemic CVA so she was treated conservatively. I was called to see her due to some worsening abdominal pain following a disimpaction from her . This also progressed to worsening lower GI bleeding. [facility] Medical History Anxiety and depression AV node dysfunction Cardiac resynchronization therapy defibrillator (HEAD BELLH[employer] CAPTAIN-D) in place Cerebral palsy Congestive heart failure (CHF) Coronary artery disease CVA (cerebral vascular accident) Diabetes mellitus Former smoker Heart failure with reduced ejection fraction High cholesterol Hyperlipidemia Hypertension ICD (implantable cardioverter-defibrillator) in place Insomnia Ischemic cardiomyopathy Myocarditis Pacemaker PFO (patent foramen ovale) Presence of biventricular implantable cardioverter-defibrillator Restless legs Transient ischemic attack Ulcer Home Medications citalopram 20 mg tablet 20 mg PO QHS depression 11/18/14 [History Last Taken 10/06/23] clonazepam 1 mg tablet 1 mg PO QHS anxiety 11/18/14 [History Last Taken 10/06/23] multivitamin with folic acid 400 mcg tablet (Thera) 1 tab PO DAILY vitamin 11/18/14 [History Last Taken 10/07/23] trazodone 50 mg tablet 50 mg PO DAILY PRN Anxiety 11/18/14 [History Last Taken 10/06/23] clopidogrel 75 mg tablet 1 tab PO QHS anti platelet 05/18/16 [History Last Taken 10/06/23] empagliflozin 10 mg tablet (Jardiance) 10 mg PO DAILY diabetes 09/28/23 [History Last Taken 10/07/23] metoprolol succinate 25 mg tablet,extended release 24 hr 12.5 mg PO DAILY blood pressure 09/28/23 [History Last Taken 10/07/23] pantoprazole 40 mg tablet,delayed release 40 mg PO BID stomach acid 09/28/23 [History Last Taken 10/07/23] cholecalciferol (vitamin D3) 25 mcg (1,000 unit) tablet 50 mcg (2 x 25 mcg (1,000 unit)) PO QHS supplement #0 tabs 09/30/23 [Rx Last Taken 10/06/23] aspirin 81 mg tablet,delayed release 81 mg PO DAILY heart 10/01/23 [History Last Taken 10/07/23] spironolactone 25 mg tablet 12.5 mg PO MOWEFR FLUID 10/07/23 [History Last Taken 10/06/23] baclofen 5 mg tablet 5 mg PO BID 02/21/24 [History Last Taken Unknown] calcium carbonate 600 mg-vitamin D3 10 mcg (400 unit) tablet 1 tab PO BID 02/21/24 [History Last Taken Unknown] escitalopram oxalate 10 mg tablet 10 mg PO DAILY 02/21/24 [History Last Taken Unknown] metformin 500 mg tablet,extended release 24 hr 500 mg PO DAILY 02/21/24 [History Last Taken Unknown] oxybutynin chloride 5 mg tablet,extended release 24 hr 5 mg PO DAILY 02/21/24 [History Last Taken Unknown] rosuvastatin 20 mg tablet 20 mg PO QHS 02/21/24 [History Last Taken Unknown] sacubitril 24 mg-valsartan 26 mg tablet (Entresto) 0.5 tab PO BID 02/21/24 [History Last Taken Unknown] Allergy/AdvReac Type Severity Reaction Status Date / Time No Known Allergies Allergy Verified 02/21/24 14:04 Family History Father Heart disease Mother Anxiety and depression Suicide and self-inflicted injury from suicide age 52. Surgical History History of cardiac defibrillator placement History of cholecystectomy History of coronary artery stent placement History of skin surgery S/P colon polypectomy Social History household members: spouse Smoking Status: Former smoker how long ago did patient quit smokin-1.5 ppd from teen until quit in 2008. alcohol intake: never substance use type: does not use ROS ROS Narrative Admission Review of Systems: CONSTITUTIONAL: No weight loss, fever, chills, + weakness or fatigue. HEENT: + Vision blurring. Eyes: No visual loss, double vision or yellow sclerae. Ears, Nose, Throat: No hearing loss, sneezing, congestion, runny nose or sore throat. SKIN: No rash or itching, lesions, wounds. CARDIOVASCULAR: No chest pain, chest pressure or chest discomfort, palpitations,edema, orthopnea, syncopal events. RESPIRATORY: No shortness of breath, cough or sputum, wheezing, hemoptysis. GASTROINTESTINAL: No anorexia, nausea, vomiting or diarrhea, abdominal pain, melena, BRBPR. GENITOURINARY: No dysuria, frequency, urgency or retention. NEUROLOGICAL: + Dizziness, right lower extremity paresthesias, dysarthria, rightupper and lower extremity focal weakness. No headache, syncope, , change in bowel or bladder control, seizure. MUSCULOSKELETAL: + muscle, back pain, joint pain or stiffness. HEMATOLOGIC: No anemia. Easy bleeding/bruising. LYMPHATICS: No enlarged nodes. No history of splenectomy. PSYCHIATRIC: + history of depression or anxiety. ENDOCRINOLOGIC: No reports of sweating, cold or heat intolerance. No polyuria orpolydipsia. ALLERGIES: No history of asthma, hives, eczema or rhinitis. Physical Exam Narrative General: Alert, Oriented x3, Cooperative, No apparent distress HEENT: Atraumatic, PERRLA, EOMI, Normocephalic Oral: Moist Mucosa Neck: Supple, No JVD Lungs: Diminished, normal air movement, No rhonchi, No wheeze, No rales Cardiovascular: Regular rate, Regular Rhythm, Normal S1, Normal S2, No murmurs Abdomen: Soft, Non Tender, Non-Distended, No Hepato-splenomegaly Extremities: No edema, Capillary Refill Less than 3 Seconds Skin: No rashes, No breakdown Musculoskeletal: No Tenderness to Palpation of Joints or Extremities Neurological: Moves all extremities, Sensory exam intact to light touch and pain Psych/Mental Status: Normal affect Lab / Micro Data 02/21/24 14:25 02/21/24 14:25 Labs: Laboratory Results - last 24 hr 02/21/24 14:25: WBC 20.5 H, RBC 3.98 L, Hgb 12.2, Hct 36.4 L, MCV 91.5, MCH 30.7, MCHC 33.5, RDW Std Deviation 45.0 H, RDW Coeff of Edita 13.3, Plt Count 198,MPV 11.3, Immature Gran % (Auto) 0.700, Neut % (Auto) 88.4 H, Lymph % (Auto) 5.3L, [place] % (Auto) 5.5, Eos % (Auto) 0.0, Baso % (Auto) 0.1, Absolute Neuts (auto)18.1 H, Absolute Lymphs (auto) 1.08, Nucleated RBC % 0, Sodium 137, Potassium 4.6, Chloride 100, Carbon Dioxide 24.0, Anion Gap 13, BUN 31 H, Creatinine 2.08 H, Est GFR (MDRD) Af Amer 30 L, Est GFR (MDRD) Non-Af 25 L, BUN/Creatinine Ratio14.9, Glucose 241 H, Calcium 9.4, Total Bilirubin 0.60, AST 35, ALT 28, AlkalinePhosphatase 58, Total Protein 7.8, Albumin 3.7, Globulin 4.1, Albumin/Globulin Ratio 0.9, Lipase 18 02/21/24 15:15: PT Cancelled, INR Cancelled, APTT Cancelled, Lactic Acid 2.3 H* 02/21/24 16:26: PT 15.1 H, INR 1.2, APTT 24.8 02/21/24 17:02: Urine Color Yellow, Urine Clarity Clear, Urine pH 5.0, Ur Specific [place] 1.015, Urine Protein 15 H, Urine Glucose (UA) 1000 H, Urine Ketones 5 H, Urine Occult Blood 10 H, Urine Nitrite Negative, Urine Bilirubin 1 H, Urine Urobilinogen 1 H, Ur Leukocyte Esterase 25 H, Urine RBC 0-5 SEEN, UrineWBC 0-5 SEEN, Ur Squamous Epith Cells 0-5 SEEN, Urine Bacteria 0 SEEN, Urine Mucus 0 SEEN Micro: Microbiology 02/21/24 16:20 Stool Stool Occult Blood (EDUARDO) - Final Occult Blood Positive Assessment & Plan Assessment/Plan (1) CVA (cerebral vascular accident): PLAN: Plan 69-year-old with unfortunate recent diagnosis of Recurrent right-sided weaknesswith spasticity secondary to possible underlying CVA. ? I am not sure why patient developed worsening constipation. Likely is medication side effect. She is on aspirin 81 milligrams a day. As she takes pantoprazole 40 mg twice a day. I think she needs undergo evaluation of her GI tract to see if she has any signs and symptoms of ischemic disease, peptic ulcerdisease, chronic changes such as Lukasz's erosions, angiodysplasia, gastroesophageal reflux disease. Charges/Coding Visit Charges Inpatient E&M: 18909 SNF Init L2 02/23/24 7569 <Electronically signed by Shan Friend DO> Cosigner Signature (if applicable): CC: Dr. Ben Johnson, DO; Dr. Adrienne Byers DO~ Signed [facility] Work Phone: 1(204) 595-270004-03-2024 Progress note Author Shan Friend [facility] February 23, 2024 4:56pm Note Date/Time February 23, 2024 4:[address] [facility] Medical Records Department [address] [place] [address] Progress Note - GI 02/23/24 1655 MR#: [id number] Acct: [id number] Name: MANSI CARO Rep #:[id number] : 1955 69 From: Shan Lockett DO PCP: Dr. Adrienne Byers DO Status:ADM IN Location: [place]3 [id number] Subjective Subjective She underwent colonoscopy yesterday for lower GI bleeding. Had a long talk withher after procedure and explained to him the diagnosis and treatment recommendations. Objective Data Objective Data Vital Signs: Vital Signs Temp Pulse Resp BP Pulse Ox O2 Del Method 98.4 F 65 18 126/56 H 99 Room Air 02/23/24 13:37 02/23/24 13:37 02/23/24 13:37 02/23/24 13:37 02/23/24 13:37 02/23/24 13:37 Oxygen Delivery Method Room Air Weight: 128 lb 15.985 oz Body Mass Index (BMI) 19.5 Intake & Output: Intake and Output for Last 24 Hours 02/21/24 02/22/24 02/23/24 23:59 23:59 23:59 Intake Total 1112 / 1112 2975.02 / 2975.02 2526.5 / 2526.5 Balance 1112 / 1112 2975.02 / 2975.02 2526.5 / 2526.5 Lab / Micro Data 02/23/24 06:04 02/23/24 06:04 Labs: Laboratory Results - last 24 hr 02/22/24 21:59: POC Glucose 183 H 02/23/24 06:04: WBC 8.1, RBC 2.89 L, Hgb 8.7 L, Hct 27.4 L, MCV 94.8, MCH 30.1, MCHC 31.8 L, RDW Std Deviation 48.0 H, RDW Coeff of Edita 14.1, Plt Count 130 L, MPV 10.4, Immature Gran % (Auto) 0.200, Neut % (Auto) 58.7, Lymph % (Auto) 34.0,[place] % (Auto) 5.7, Eos % (Auto) 1.2, Baso % (Auto) 0.2, Absolute Neuts (auto) 4.8, Absolute Lymphs (auto) 2.75, Nucleated RBC % 0, Sodium 142, Potassium 3.9, Chloride 115 H, Carbon Dioxide 25.0, Anion Gap 2 L, BUN 15, Creatinine 1.00, Estim Creat Clear Calc 47.66, Est GFR (MDRD) Af Amer 70, Est GFR (MDRD) Non-Af 58 L, BUN/Creatinine Ratio 15.0, Glucose 134 H, Calcium 8.0 L Micro: Microbiology 02/21/24 22:45 Stool Enteric Bacteriology - Final 02/21/24 22:45 Stool C. difficile GDH Antigen & Toxins - Final 02/21/24 22:45 Stool Clostridioides difficile (PCR) - Final 02/21/24 16:20 Stool Stool Occult Blood (EDUARDO) - Final Occult Blood Positive Physical Exam Const alert, oriented x3, no apparent distress and average body habitus Constitutional Narrative: frail General Appearance: cooperative Orientation / Consciousness: awake HEENT normocephalic, head/scalp atraumatic, hearing grossly normal bilaterally and moist oral mucous membranes Eyes PERRL, EOMs intact bilaterally and conjunctivae normal Neck no lymphadenopathy, supple, no JVD, thyroid normal and no carotid bruits General: trachea midline Lymph Lymphatic: no lymphadenopathy noted and no lymphedema noted Resp normal respiratory effort, normal air movement, no retractions, no use of accessory muscles and clear to auscultation bilaterally Auscultation: Negative for rales, rhonchi or wheezes Cardio regular rate, regular rhythm, S1 normal heart sound, S2 normal heart sound, no murmurs, no rub and no gallops GI normal to inspection, nondistended, normoactive bowel sounds, soft to palpation and non-distended GI Narrative: mild lower abdominal tenderness, no guarding or rebound tenderness Extremity normal capillary refill, no clubbing, cyanosis or edema and no calf tenderness General Extremity: no tenderness to palpation of joints or extremities Skin no rashes or lesions noted General Skin Exam: no breakdown Neuro oriented x3, CN's II-XII intact bilaterally, moves all extremities, no focal motor deficits, no sensory deficits noted and deep tendon reflexes 2+ bilaterally Neuro Narrative: Patient has a mild speech impediment Sensorium / Orientation: awake and alert Motor Exam: strength 5/5 throughout and general weakness Psych thought process normal, cooperative and affect normal Appearance: appropriate Assessment & Plan Assessment/Plan (1) CVA (cerebral vascular accident): PLAN: Plan 69-year-old with unfortunate recent diagnosis of Recurrent right-sided weaknesswith spasticity secondary to possible underlying CVA. ? I am not sure why patient developed worsening constipation. Likely is medication side effect. She is on aspirin 81 milligrams a day. As she takes pantoprazole 40 mg twice a day. I think she needs undergo evaluation of her GI tract to see if she has any signs and symptoms of ischemic disease, peptic ulcerdisease, chronic changes such as Lukasz's erosions, angiodysplasia, gastroesophageal reflux disease. Findings from colonoscopy Impression: - Rectal prolapse. - Diverticulosis in the recto-sigmoid colon, in the sigmoid colon and at the hepatic flexure. - Patchy moderate inflammation was found in the sigmoid colon, in the descending colon, at the splenic flexure, at the hepatic flexure and in the ascending colon secondary to ischemic colitis. Biopsied. - The examination was otherwise normal. Recommendation: - [facility]. - Resume previous diet. - Continue present medications. - Await pathology results. -This is ischemic colitis secondary to severe constipation. The goal is an aggressive bowel regimen. Charges/Coding Visit Charges Inpatient E&M: 23962 [place] [address] 02/23/24 6738 <Electronically signed by Shan Friend DO> Cosigner Signature (if applicable): CC: ~ Signed [facility] Work Phone: 1(410) 459-556804-03-2024 Progress note Author Heike Horta [facility] February 23, 2024 3:33pm Note Date/Time February 23, 2024 10:[address] [facility] Medical Records Department [address] [place] [address] Progress Note 02/23/24 0959 MR#: [id number] Acct: [id number] Name: MANSI CARO Rep #:[id number] : 1955 69 From: Heike Horta MD PCP: Dr. Adrienne Byers, DO Status:ADM IN Location: MS3 [id number] Subjective Subjective Patient seen and examined. She complained of some abdominal pain. SHe had colonoscopy yesterday which showed ischemic colitis and diverticulosis. Review of systems is otherwise negative. Objective Data Objective Data Vital Signs: Vital Signs Temp Pulse Resp BP Pulse Ox O2 Del Method 98.6 F 66 18 104/44 L 96 Room Air 02/23/24 07:50 02/23/24 07:50 02/23/24 07:50 02/23/24 07:50 02/23/24 07:50 02/23/24 07:55 Oxygen Delivery Method Room Air Weight: 128 lb 15.985 oz Body Mass Index (BMI) 19.5 Intake & Output: Intake and Output for Last 24 Hours 02/21/24 02/22/24 02/23/24 23:59 23:59 23:59 Intake Total 1112 / 1112 2975.02 / 2975.02 1417.0 / 1417.0 Balance 1112 / 1112 2975.02 / 2975.02 1417.0 / 1417.0 Lab / Micro Data 02/23/24 06:04 02/23/24 06:04 Labs: Laboratory Results - last 24 hr 02/22/24 05:09: Hemoglobin A1c 7.0 H 02/22/24 21:59: POC Glucose 183 H 02/23/24 06:04: WBC 8.1, RBC 2.89 L, Hgb 8.7 L, Hct 27.4 L, MCV 94.8, MCH 30.1, MCHC 31.8 L, RDW Std Deviation 48.0 H, RDW Coeff of Edita 14.1, Plt Count 130 L, MPV 10.4, Immature Gran % (Auto) 0.200, Neut % (Auto) 58.7, Lymph % (Auto) 34.0,[place] % (Auto) 5.7, Eos % (Auto) 1.2, Baso % (Auto) 0.2, Absolute Neuts (auto) 4.8, Absolute Lymphs (auto) 2.75, Nucleated RBC % 0, Sodium 142, Potassium 3.9, Chloride 115 H, Carbon Dioxide 25.0, Anion Gap 2 L, BUN 15, Creatinine 1.00, Estim Creat Clear Calc 47.66, Est GFR (MDRD) Af Amer 70, Est GFR (MDRD) Non-Af 58 L, BUN/Creatinine Ratio 15.0, Glucose 134 H, Calcium 8.0 L Micro: Microbiology 02/21/24 22:45 Stool Enteric Bacteriology - Final 02/21/24 22:45 Stool C. difficile GDH Antigen & Toxins - Final 02/21/24 22:45 Stool Clostridioides difficile (PCR) - Final 02/21/24 16:20 Stool Stool Occult Blood (EDUARDO) - Final Occult Blood Positive Physical Exam Const alert, oriented x3, no apparent distress and average body habitus Constitutional Narrative: frail General Appearance: cooperative Orientation / Consciousness: awake HEENT normocephalic, head/scalp atraumatic, hearing grossly normal bilaterally and moist oral mucous membranes Eyes PERRL, EOMs intact bilaterally and conjunctivae normal Neck no lymphadenopathy, supple, no JVD, thyroid normal and no carotid bruits General: trachea midline Lymph Lymphatic: no lymphadenopathy noted and no lymphedema noted Resp normal respiratory effort, normal air movement, no retractions, no use of accessory muscles and clear to auscultation bilaterally Auscultation: Negative for rales, rhonchi or wheezes Cardio regular rate, regular rhythm, S1 normal heart sound, S2 normal heart sound, no murmurs, no rub and no gallops GI normal to inspection, nondistended, normoactive bowel sounds, soft to palpation and non-distended GI Narrative: mild lower abdominal tenderness, no guarding or rebound tenderness Extremity normal capillary refill, no clubbing, cyanosis or edema and no calf tenderness General Extremity: no tenderness to palpation of joints or extremities Skin no rashes or lesions noted General Skin Exam: no breakdown Neuro oriented x3, CN's II-XII intact bilaterally, moves all extremities, no focal motor deficits, no sensory deficits noted and deep tendon reflexes 2+ bilaterally Neuro Narrative: Patient has a mild speech impediment Sensorium / Orientation: awake and alert Motor Exam: strength 5/5 throughout and general weakness Psych thought process normal, cooperative and affect normal Appearance: appropriate Assessment & Plan Assessment/Plan (1) Gastrointestinal bleeding, lower: (2) Colitis: PLAN: Plan #Acute colitis * Was admitted with a complaint of bright red rectal bleeding left lower quadrant abdominal pain. CT of the abdomen and pelvis showed new inflammation along the length of the descending colon concerning for infectious or inflammatory colitis * colonoscopy showed diverticulosis in the rectosigmoid colon, sigmoid colon and hepatic flexure, as well as patchy moderate inflammation in the sigmoid colon, descending colon and at the heaptic nd and splenic flexure and in the ascending colon due to ischemic colitis. * now on oral diet. * per GI, she has ischemic colitis secondary to severe constipation. * GI on board * #Hypotension: resolved. Continue holding metoprolol as BP is on the lower side of normal. #Lower GI bleed: Due to acute colitis as above. Resolved #SUJATHA: resolved. Cr is down to 1. #Type 2 diabetes mellitus: Currently NPO. On insulin sliding scale. Accu- Cheksevery 6 hourly. #History of ischemic cardiomyopathy, s/p biventricular ICD. #Benign essential hypertension: Metoprolol and Entresto on hold due to patient being hypotensive. BP on the lower side of normal now, but will continue holding. #History of cerebral palsy: Stable #History of CVA: On aspirin and Plavix on hold due to the GI bleed #Hyperlipidemia: On statin #Anxiety and depression: #Left upper renal pole cyst:per radiologist, no further imaging required. DVT prophylaxis: SCDs. Disposition: anticipate dc over the next 24-48 hours. Charges/Coding Visit Charges Inpatient E&M: 16098 Subs Hosp L2 02/23/24 1533 <Electronically signed by Heike Horta MD> Heike Horta MD Cosigner Signature (if applicable): CC: ~ Signed [facility] Work Phone: 1(201) 664-459304-02-2024 Procedure [facility] 02-22-2024 Procedure [facility]04-02-2024 Progress note [facility] February 22, 2024 2:23pm Note Date/Time February 22, 2024 2:[address] [facility] Medical Records Department [address] [place] [address] Progress Note 02/22/24 1414 MR#: [id number] Acct: [id number] Name: MANSI CARO Rep #:[id number] : 1955 69 From: Heike Horta MD PCP: Dr. Adrienne Byers, DO Status:ADM IN Location: MS3 [id number] Subjective Subjective Patient seen and examined. Her was by her bedside. Still admitted to abdominal pain but denied any nausea or vomiting. She has not had any more rectal bleeding. Blood pressures running low and was down in the 80s systolic. Review of systems otherwise negative. Objective Data Objective Data Vital Signs: Vital Signs Temp Pulse Resp BP Pulse Ox O2 Del Method 98.2 F 86 16 82/43 L 94 Room Air 02/22/24 11:00 02/22/24 11:00 02/22/24 11:00 02/22/24 11:00 02/22/24 11:00 02/22/24 11:00 Oxygen Delivery Method Room Air Weight: 129 lb Body Mass Index (BMI) 19.5 Intake & Output: Intake and Output for Last 24 Hours 02/20/24 02/21/24 02/22/24 23:59 23:59 23:59 Intake Total 1112 / 1112 1793.77 / 1793.77 Balance 1112 / 1112 1793.77 / 1793.77 Lab / Micro Data 02/22/24 05:09 02/22/24 05:09 Labs: Laboratory Results - last 24 hr 02/21/24 14:25: WBC 20.5 H, RBC 3.98 L, Hgb 12.2, Hct 36.4 L, MCV 91.5, MCH 30.7, MCHC 33.5, RDW Std Deviation 45.0 H, RDW Coeff of Edita 13.3, Plt Count 198,MPV 11.3, Immature Gran % (Auto) 0.700, Neut % (Auto) 88.4 H, Lymph % (Auto) 5.3L, [place] % (Auto) 5.5, Eos % (Auto) 0.0, Baso % (Auto) 0.1, Absolute Neuts (auto)18.1 H, Absolute Lymphs (auto) 1.08, Nucleated RBC % 0, Sodium 137, Potassium 4.6, Chloride 100, Carbon Dioxide 24.0, Anion Gap 13, BUN 31 H, Creatinine 2.08 H, Est GFR (MDRD) Af Amer 30 L, Est GFR (MDRD) Non-Af 25 L, BUN/Creatinine Ratio14.9, Glucose 241 H, Calcium 9.4, Total Bilirubin 0.60, AST 35, ALT 28, AlkalinePhosphatase 58, Total Protein 7.8, Albumin 3.7, Globulin 4.1, Albumin/Globulin Ratio 0.9, Lipase 18 02/21/24 15:15: PT Cancelled, INR Cancelled, APTT Cancelled, Lactic Acid 2.3 H* 02/21/24 16:26: PT 15.1 H, INR 1.2, APTT 24.8 02/21/24 17:02: Urine Color Yellow, Urine Clarity Clear, Urine pH 5.0, Ur Specific [place] 1.015, Urine Protein 15 H, Urine Glucose (UA) 1000 H, Urine Ketones 5 H, Urine Occult Blood 10 H, Urine Nitrite Negative, Urine Bilirubin 1 H, Urine Urobilinogen 1 H, Ur Leukocyte Esterase 25 H, Urine RBC 0-5 SEEN, UrineWBC 0-5 SEEN, Ur Squamous Epith Cells 0-5 SEEN, Urine Bacteria 0 SEEN, Urine Mucus 0 SEEN 02/21/24 20:21: Lactic Acid 1.5 02/22/24 05:09: WBC 12.8 H, RBC 3.55 L, Hgb 10.7 L, Hct 32.7 L, MCV 92.1, MCH 30.1, MCHC 32.7, RDW Std Deviation 47.0 H, RDW Coeff of Edita 13.9, Plt Count 173,MPV 10.9, Immature Gran % (Auto) 0.500, Neut % (Auto) 76.2 H, Lymph % (Auto) 16.1 L, [place] % (Auto) 6.9, Eos % (Auto) 0.1, Baso % (Auto) 0.2, Absolute Neuts (auto) 9.7 H, Absolute Lymphs (auto) 2.06, Nucleated RBC % 0, Sodium 141, Potassium 3.6, Chloride 111 H, Carbon Dioxide 25.0, Anion Gap 5, BUN 29 H, Creatinine 1.41 H, Estim Creat Clear Calc 33.80, Est GFR (MDRD) Af Amer 47 L, Est GFR (MDRD) Non-Af 39 L, BUN/Creatinine Ratio 20.6 H, Glucose 187 H, Calcium 8.8 Micro: Microbiology 02/21/24 22:45 Stool Enteric Bacteriology - Final 02/21/24 22:45 Stool C. difficile GDH Antigen & Toxins - Final 02/21/24 22:45 Stool Clostridioides difficile (PCR) - Final 02/21/24 16:20 Stool Stool Occult Blood (EDUARDO) - Final Occult Blood Positive Radiography Diagnostic Testing: Radiology Impression Abdomen CT 02/21/24 16:37 IMPRESSION: New inflammation along the length of the descending colon concerning for infectious or inflammatory colitis. Interval resolution of previous large colonic stool burden. Consider GI follow-up. Sigmoid colonic diverticulosis without focal inflamed diverticulum is just diverticulitis. New hyperdensity within previously hypodense left renal upper pole cyst on February 19, 2024. Change in attenuation may represent interval hemorrhage within the cyst. Follow-up multiphasic contrast-enhanced CT is recommended when clinically able to exclude underlying solid neoplastic component. Aortic atherosclerosis with mild aneurysmal ectasia to 2.7 cm Electronically Signed: Antonio Max MD at 18:54 EDT Reading Location ID and State: [facility] / [place] Tel , Service support , Physical Exam Const alert and oriented x3 Constitutional Narrative: frail General Appearance: cooperative HEENT normocephalic and head/scalp atraumatic Mouth: dry mucous membranes Eyes PERRL and EOMs intact bilaterally Neck no lymphadenopathy and supple Lymph Lymphatic: no lymphadenopathy noted and no lymphedema noted Resp normal respiratory effort, normal air movement and clear to auscultation bilaterally Cardio regular rate, regular rhythm, S1 normal heart sound, S2 normal heart sound and no murmurs GI normal to inspection, nondistended, normoactive bowel sounds, soft to palpation,non-tender and non-distended Extremity normal capillary refill, no clubbing, cyanosis or edema and no calf tenderness General Extremity: no tenderness to palpation of joints or extremities Skin General Skin Exam: no breakdown Neuro CN's II-XII intact bilaterally, no focal motor deficits, no sensory deficits noted and deep tendon reflexes 2+ bilaterally Motor Exam: strength 5/5 throughout and general weakness Psych thought process normal, cooperative and affect normal Appearance: appropriate Assessment & Plan Assessment/Plan (1) Gastrointestinal bleeding, lower: (2) Colitis: PLAN: Plan #Acute colitis * Was admitted with a complaint of bright red rectal bleeding left lower quadrant abdominal pain. CT of the abdomen and pelvis showed new inflammation along the length of the descending colon concerning for infectious or inflammatory colitis * Currently NPO. Being hydrated with fluids. On IV antibiotics. * Gastroenterology on board. For colonoscopy today. * #Hypotension: Blood pressure running low in the 80s systolic. Patient was metoprolol held. Being aggressively hydrated with IV fluids. #Lower GI bleed: Due to acute colitis as above #SUJATHA: Creatinine was 2.08 on admission. Baseline is around 0.8. Now down to 1.41 with hydration. Continue gentle hydration with IV fluids. #Type 2 diabetes mellitus: Currently NPO. On insulin sliding scale. Accu- Cheksevery 6 hourly. #History of ischemic cardiomyopathy, s/p biventricular ICD. #Benign essential hypertension: Metoprolol and Entresto on hold due to patient being hypotensive. #History of cerebral palsy: Stable #History of CVA: On aspirin and Plavix on hold due to the GI bleed #Hyperlipidemia: On statin #Anxiety and depression: #Left upper renal pole cyst: Will benefit from a multiphase contrast-enhanced CTscan when clinically stable to exclude a solid neoplastic component. 6 DVT prophylaxis: SCDs. Charges/Coding Visit Charges Inpatient E&M: 25058 Subs Hosp L3 02/22/24 1423 <Electronically signed by Heike Horta MD> Heike Horta MD Cosigner Signature (if applicable): CC: ~ Signed [facility] Work Phone: 1(157) 787-320604-02-2024 Discharge summary Author Jose Jaime [facility] February 21, 2024 11:34pm Note Date/Time February 21, 2024 2:31 pm [facility] Medical Records Department [address] [place] [address] Emergency Department Summary 02/21/24 MR#: [id number] Acct: [id number] Name: MANSI CARO Rep #:[id number] : 1955 69 From: Jose Liu PCP: Dr. Adrienne yBers, DO Status:ADM IN Location: [place] [address]-1 HPI HPI - GI History of Present Illness Chief Complaint: Abd Pain Informant: patient and spouse/S.O. Abdominal Pain/Flank Pain Onset: Days Context: Gradual Onset Timing: Continuous Quality: Cramping Location: Diffuse Worsened by: Food Relieved by: Nothing Nausea/Vomiting/Emesis GI Symptom: Positive for Nausea and Vomiting Quality: Positive for Nonbilious; Negative for Blood streaks, Coffee ground or Hematemesis Diarrhea/Melena/Hematochezia GI Symptom: Positive for Diarrhea and Hematochezia Associated Symptoms Associated Symptoms: Negative for Dysuria, Frequency or Hematuria Narrative Narrative: Patient presents with abdominal pain, nausea, vomiting, and diarrhea that has been getting progressively worse over the past few days. Patient was seen here 2 days ago and had a CT scan done at that time. Patient was discharged home with a diagnosis of constipation. states that he administered some Ex-Lax. Patient had a large bowel movement and is now having some diarrhea. states that today her bowel movement was red. also states that the patient has had some undigested food in her bowel movements. Patient admitsto some nausea and vomiting. Patient denies any hematemesis or coffee-ground emesis. Patient states she has some diffuse cramping. Patient states it is worse over the periumbilical area. Patient states her pain is worse with eating. Patient states nothing makes it better. Patient denies any dysuria or hematuria. Patient admits to some subjective chills but denies any fevers. [facility] Medical History Anxiety and depression AV node dysfunction Cardiac resynchronization therapy defibrillator (HEAD BELLHOP CAPTAIN-D) in place Cerebral palsy Congestive heart failure (CHF) Coronary artery disease CVA (cerebral vascular accident) Diabetes mellitus Former smoker Heart failure with reduced ejection fraction High cholesterol Hyperlipidemia Hypertension ICD (implantable cardioverter-defibrillator) in place Insomnia Ischemic cardiomyopathy Myocarditis Pacemaker PFO (patent foramen ovale) Presence of biventricular implantable cardioverter-defibrillator Restless legs Transient ischemic attack Ulcer Home Medications citalopram 20 mg tablet 20 mg PO QHS depression 11/18/14 [History Last Taken 10/06/23] clonazepam 1 mg tablet 1 mg PO QHS anxiety 11/18/14 [History Last Taken 10/06/23] multivitamin with folic acid 400 mcg tablet (Thera) 1 tab PO DAILY vitamin 11/18/14 [History Last Taken 10/07/23] trazodone 50 mg tablet 50 mg PO DAILY PRN Anxiety 11/18/14 [History Last Taken 10/06/23] clopidogrel 75 mg tablet 1 tab PO QHS anti platelet 05/18/16 [History Last Taken 10/06/23] empagliflozin 10 mg tablet (Jardiance) 10 mg PO DAILY diabetes 09/28/23 [History Last Taken 10/07/23] metoprolol succinate 25 mg tablet,extended release 24 hr 12.5 mg PO DAILY blood pressure 09/28/23 [History Last Taken 10/07/23] pantoprazole 40 mg tablet,delayed release 40 mg PO BID stomach acid 09/28/23 [History Last Taken 10/07/23] cholecalciferol (vitamin D3) 25 mcg (1,000 unit) tablet 50 mcg (2 x 25 mcg (1,000 unit)) PO QHS supplement #0 tabs 09/30/23 [Rx Last Taken 10/06/23] aspirin 81 mg tablet,delayed release 81 mg PO DAILY heart 10/01/23 [History Last Taken 10/07/23] spironolactone 25 mg tablet 12.5 mg PO MOWEFR FLUID 10/07/23 [History Last Taken 10/06/23] baclofen 5 mg tablet 5 mg PO BID 02/21/24 [History Last Taken Unknown] calcium carbonate 600 mg-vitamin D3 10 mcg (400 unit) tablet 1 tab PO BID 02/21/24 [History Last Taken Unknown] escitalopram oxalate 10 mg tablet 10 mg PO DAILY 02/21/24 [History Last Taken Unknown] metformin 500 mg tablet,extended release 24 hr 500 mg PO DAILY 02/21/24 [History Last Taken Unknown] oxybutynin chloride 5 mg tablet,extended release 24 hr 5 mg PO DAILY 02/21/24 [History Last Taken Unknown] rosuvastatin 20 mg tablet 20 mg PO QHS 02/21/24 [History Last Taken Unknown] sacubitril 24 mg-valsartan 26 mg tablet (Entresto) 0.5 tab PO BID 02/21/24 [History Last Taken Unknown] Allergy/AdvReac Type Severity Reaction Status Date / Time No Known Allergies Allergy Verified 02/21/24 14:04 Family History Father Heart disease Mother Anxiety and depression Suicide and self-inflicted injury from suicide age 52. Surgical History History of cardiac defibrillator placement History of cholecystectomy History of coronary artery stent placement History of skin surgery S/P colon polypectomy Social History household members: spouse Smoking Status: Former smoker how long ago did patient quit smokin-1.5 ppd from teen until quit in 2008. alcohol intake: never substance use type: does not use ROS ROS ED Constitutional Constitutional ED: Reports chills and subjective; Denies fever(s) Eyes Eyes: Denies blurry vision or change in vision ENT ENT ED: Reports rhinorrhea; Denies sore throat Cardiovascular Cardiovascular: Denies chest pain or palpitations Respiratory/Chest Respiratory/Chest: Reports cough; Denies dyspnea Gastrointestinal Gastrointestinal: Denies nausea or vomiting Genitourinary Genitourinary ED: Denies dysuria or hematuria Musculoskeletal Musculoskeletal: Denies back pain or neck pain Integumentary Denies abscess or rash Neurologic Neurologic: Reports headache(s) and weakness Allergic/Immunologic Allergic/Immunologic ED: Denies mouth swelling or urticaria EXAM Physical Exam Const Vital Signs: 02/21/24 14:00 02/21/24 14:00 02/21/24 14:03 Temperature 97.1 F L 97.1 F L 97.1 F L Temperature Source Temporal Temporal Temporal Pulse Rate 91 91 91 Respiratory Rate 16 16 16 Blood Pressure 84/50 L 84/50 L 84/50 L Blood Pressure Mean 61 61 61 Pulse Ox 97 97 97 Oxygen Delivery Method Room Air Room Air Room Air 02/21/24 15:03 02/21/24 16:00 02/21/24 16:00 Temperature 98 F 98 F Temperature Source Temporal Temporal Pulse Rate 90 90 90 Respiratory Rate 18 18 18 Blood Pressure 94/57 L 100/60 100/60 Blood Pressure Mean 69 73 73 Pulse Ox 97 96 96 Oxygen Delivery Method Room Air Room Air Room Air 02/21/24 17:13 02/21/24 16:15 02/21/24 16:30 Temperature 98 F Temperature Source Temporal Pulse Rate 64 Respiratory Rate 18 Blood Pressure 102/62 104/40 L 96/55 L Blood Pressure Mean 75 59 69 Pulse Ox 98 Oxygen Delivery Method Room Air 02/21/24 16:45 02/21/24 17:13 02/21/24 17:15 Temperature Temperature Source Pulse Rate 63 Respiratory Rate 14 Blood Pressure 84/63 L 102/62 Blood Pressure Mean 70 72 Pulse Ox 81 Oxygen Delivery Method 02/21/24 17:30 02/21/24 17:45 02/21/24 18:00 Temperature Temperature Source Pulse Rate 63 67 69 Respiratory Rate 16 17 16 Blood Pressure 96/46 L 100/44 L 95/44 L Blood Pressure Mean 62 61 60 Pulse Ox 100 95 94 Oxygen Delivery Method Positive well nourished and well developed General Appearance ED: well developed and NAD HEENT Reports dry mucous membranes Mouth ED: Yes dry mucous membranes Mouth: dry mucous membranes Neck supple and no JVD Resp normal respiratory effort and clear to auscultation bilaterally Cardio regular rate and regular rhythm GI non-distended Palpation: soft and tender epigastric, LLQ, RLQ, LUQ, RUQ, periumbilical and suprapubic Neuro CN's II-XII intact bilaterally, moves all extremities and no sensory deficits noted Sensorium / Orientation: alert Motor Exam: strength 5/5 throughout Psych mental status grossly normal MDM MDM MDM Narrative Medical decision making narrative: Differential diagnosis includes gastrointestinal bleeding, dehydration, electrolyte abnormality, coagulopathy, pancreatitis, sepsis, and urinary tract infection. CBC will be obtained to assess for leukocytosis and anemia. Comprehensive metabolic profile will be obtained to assess for hepatic function,renal function, and electrolyte abnormality. Lipase will be obtained to assess for pancreatitis. PT with INR and PTT will be obtained to assess for coagulopathy. Urinalysis will be obtained to assess for urinary tract infectionand hematuria. Lactate will be obtained to assess for sepsis and ischemic bowel. Stool for occult blood will be obtained to assess for gastrointestinal bleeding. Patient has CT scan of the abdomen pelvis with oral and IV contrast 2days ago. I do not feel a repeat CT scan is necessary at this time. Lab Data Attestation: I reviewed the patient's lab results. Lab results narrative: CBC was reviewed. There is a leukocytosis of 20.5. Hemoglobin is stable at 12.2 and hematocrit is 36.4. Platelets are normal. Comprehensive metabolic profile was reviewed. BUN was 31 and creatinine was 2.08. This is increased from previous results. Lipase was reviewed and was normal at 18. PT with INR was reviewed. Pro time was 15.1 and INR is 1.2. PTT was normal at 24.8. Lactate was reviewed and was slightly elevated at 2.3. Urinalysis was reviewed and was within normal limits. Labs: Laboratory Results - last 24 hr 02/21/24 02/21/24 02/21/24 14:25 15:15 16:26 WBC 20.5 H RBC 3.98 L Hgb 12.2 Hct 36.4 L MCV 91.5 MCH 30.7 MCHC 33.5 RDW Std Deviation 45.0 H RDW Coeff of Edita 13.3 Plt Count 198 MPV 11.3 Immature Gran % (Auto) 0.700 Neut % (Auto) 88.4 H Lymph % (Auto) 5.3 L [place] % (Auto) 5.5 Eos % (Auto) 0.0 Baso % (Auto) 0.1 Absolute Neuts (auto) 18.1 H Absolute Lymphs (auto) 1.08 Nucleated RBC % 0 PT Cancelled 15.1 H INR Cancelled 1.2 APTT Cancelled 24.8 Sodium 137 Potassium 4.6 Chloride 100 Carbon Dioxide 24.0 Anion Gap 13 BUN 31 H Creatinine 2.08 H Est GFR (MDRD) Af Amer 30 L Est GFR (MDRD) Non-Af 25 L BUN/Creatinine Ratio 14.9 Glucose 241 H Lactic Acid 2.3 H* Calcium 9.4 Total Bilirubin 0.60 AST 35 ALT 28 Alkaline Phosphatase 58 Total Protein 7.8 Albumin 3.7 Globulin 4.1 Albumin/Globulin Ratio 0.9 Lipase 18 Urine Color Urine Clarity Urine pH Ur Specific [place] Urine Protein Urine Glucose (UA) Urine Ketones Urine Occult Blood Urine Nitrite Urine Bilirubin Urine Urobilinogen Ur Leukocyte Esterase Urine RBC Urine WBC Ur Squamous Epith Cells Urine Bacteria Urine Mucus 02/21/24 17:02 WBC RBC Hgb Hct MCV MCH MCHC RDW Std Deviation RDW Coeff of Edita Plt Count MPV Immature Gran % (Auto) Neut % (Auto) Lymph % (Auto) [place] % (Auto) Eos % (Auto) Baso % (Auto) Absolute Neuts (auto) Absolute Lymphs (auto) Nucleated RBC % PT INR APTT Sodium Potassium Chloride Carbon Dioxide Anion Gap BUN Creatinine Est GFR (MDRD) Af Amer Est GFR (MDRD) Non-Af BUN/Creatinine Ratio Glucose Lactic Acid Calcium Total Bilirubin AST ALT Alkaline Phosphatase Total Protein Albumin Globulin Albumin/Globulin Ratio Lipase Urine Color Yellow Urine Clarity Clear Urine pH 5.0 Ur Specific [place] 1.015 Urine Protein 15 H Urine Glucose (UA) 1000 H Urine Ketones 5 H Urine Occult Blood 10 H Urine Nitrite Negative Urine Bilirubin 1 H Urine Urobilinogen 1 H Ur Leukocyte Esterase 25 H Urine RBC 0-5 SEEN Urine WBC 0-5 SEEN Ur Squamous Epith Cells 0-5 SEEN Urine Bacteria 0 SEEN Urine Mucus 0 SEEN Radiography Diagnostic Testing: Clinical Impression(s) from Imaging Studies Abdomen CT 02/21/24 16:37 IMPRESSION: New inflammation along the length of the descending colon concerning for infectious or inflammatory colitis. Interval resolution of previous large colonic stool burden. Consider GI follow-up. Sigmoid colonic diverticulosis without focal inflamed diverticulum is just diverticulitis. New hyperdensity within previously hypodense left renal upper pole cyst on February 19, 2024. Change in attenuation may represent interval hemorrhage within the cyst. Follow-up multiphasic contrast-enhanced CT is recommended when clinically able to exclude underlying solid neoplastic component. Aortic atherosclerosis with mild aneurysmal ectasia to 2.7 cm Electronically Signed: Antonio Max MD at 18:54 EDT , CT scan of the abdomen pelvis was obtained. There is new inflammation along thelength of the descending colon concerning for colitis. There is no evidence of bowel obstruction or perforation. There is a new hyperdensity in the left upperrenal pole. This was interpreted by the radiologist and was also independently reviewed by myself. Treatment and Re-Evaluation :: Patient was given IV fluids. Patient was given morphine and Zofran. Patient was feeling somewhat better on reevaluation. Patient was advised of her findings. Patient was started on Unasyn. Case was discussed with the hospitalist. He will admit the patient to his service. Patient understood and was agreeable with the plan. All questions were answered. Discharge Plan Triage Chief Complaint: Abd Pain ED Provider: Jose Jaime Dx/Rx/DC Orders Clinical Impression: Colitis, Gastrointestinal bleeding, lower Prescriptions: No Action trazodone 50 MG tablet 50 mg PO DAILY PRN (Reason: Anxiety) clonazepam 1 MG tablet 1 mg PO QHS citalopram 20 MG tablet 20 mg PO QHS multivitamin with folic acid [Thera] 1 TABLET tablet 1 tab PO DAILY Hold Instructions: Pt is ill clopidogrel 75 MG tablet 1 tab PO QHS Jardiance 10 mg tablet 10 mg PO DAILY metoprolol succinate 25 mg tablet extended release 24 hr 12.5 mg PO DAILY pantoprazole 40 MG tablet 40 mg PO BID cholecalciferol (vitamin D3) 25 mcg (1,000 unit) Tablet 50 mcg PO QHS Qty: 0 0RF Hold Instructions: Pt is ill aspirin 81 mg tablet,delayed release (DR/EC) 81 mg PO DAILY spironolactone 25 mg tablet 12.5 mg PO MOWEFR oxybutynin chloride 5 mg tablet extended release 24hr 5 mg PO DAILY metformin 500 mg tablet extended release 24 hr 500 mg PO DAILY escitalopram oxalate 10 mg tablet 10 mg PO DAILY rosuvastatin 20 mg tablet 20 mg PO QHS calcium carbonate-vitamin D3 600 mg-10 mcg (400 unit) tablet 1 tab PO BID Hold Instructions: Pt is ill Entresto 24-26 mg tablet 0.5 tab PO BID baclofen 5 mg tablet 5 mg PO BID Patient Comments: PLEASE SEE ATTACHED FOR DETAILED DIRECTIONS Primary Care Provider: Adrienne Byers Referrals: Adrienne Byers DO [Primary Care Provider] - Disposition Disposition: Acute Care Hospital [facility] What to do if you have Problems For any increased pain, shortness of breath, bleeding, nausea or vomiting, chestpain, or any unexpected problems, contact your Primary Care Provider. Call [facility] ([phone]) or report to the closest Emergency Room. Call 911 if necessary. 02/21/242333 <Electronically signed by Jose Jaime DO> Cosigner Signature (if applicable): CC: Dr. Adrienne Byers DO ~ Signed [facility] Work Phone: 1(540) 940-182104-01-2024 History and physical note Author Ben Johnson [facility] February 21, 2024 9:35pm Note Date/Time February 21, 2024 9:[address] [facility] Medical Records Department [address] [place] [address] H&P Exam - Hospitalist 02/21/242124 MR#: [id number] Acct: [id number] Name: MANSI CARO Rep #:[id number] : 1955 69 From: Ben Johnson DO PCP: Dr. Adrienne Byers, DO Status:ADM IN Location: CT3 CH307-9 HPI - General General Date of Admission: 02/21/24 Date of Service: 02/21/24 Chief Complaint: Abdominal pain, bright red blood in stool HPI Narrative MANSI CARO, is a 69 F who presents to the emergency room at [facility] for evaluation of right red rectal bleeding along with left lower quadrant abdominal pain. Patient was seen 2 days ago in the emergency room, CATscan was obtained at that time with IV contrast and showed a large stool burden,she was discharged home with instructions to use laxatives. She is continue to have left lower quadrant abdominal pain however and today she noted that there was blood in her stool. Patient states she has diarrhea. Workup in the emergency room included a CBC which showed an elevated white bloodcell count at 20.5, creatinine was elevated at 2.08 and BUN was 31, lactic acid was 2.3, glucose was 241. Patient's urinalysis was unremarkable except for leukocyte Estrace positive. Patient had an abdominal and pelvic CT with oral contrast only, there is noted to be new inflammation along the length of the descending colon concerning for infectious or inflammatory colitis. Sigmoid colonic diverticulosis was noted soren present without diverticulitis. There is noted to be a new hyperdensity within the previous hypodense left renal upper pole cyst on February 19, 2024. It was recommended that a follow-up contrast-enhanced CT be done when clinically able to exclude underlying solid neoplastic component. Patient will be admitted to [place] [address], she will be placed on IV antibiotics, shewill be seen by gastroenterology, she may need endoscopic procedures. Labs willbe monitored. [facility] Medical History Anxiety and depression AV node dysfunction Cardiac resynchronization therapy defibrillator (HEAD BELLHOP CAPTAIN-D) in place Cerebral palsy Congestive heart failure (CHF) Coronary artery disease CVA (cerebral vascular accident) Diabetes mellitus Former smoker Heart failure with reduced ejection fraction High cholesterol Hyperlipidemia Hypertension ICD (implantable cardioverter-defibrillator) in place Insomnia Ischemic cardiomyopathy Myocarditis Pacemaker PFO (patent foramen ovale) Presence of biventricular implantable cardioverter-defibrillator Restless legs Transient ischemic attack Ulcer Home Medications citalopram 20 mg tablet 20 mg PO QHS depression 11/18/14 [History Last Taken 10/06/23] clonazepam 1 mg tablet 1 mg PO QHS anxiety 11/18/14 [History Last Taken 10/06/23] multivitamin with folic acid 400 mcg tablet (Thera) 1 tab PO DAILY vitamin 11/18/14 [History Last Taken 10/07/23] trazodone 50 mg tablet 50 mg PO DAILY PRN Anxiety 11/18/14 [History Last Taken 10/06/23] clopidogrel 75 mg tablet 1 tab PO QHS anti platelet 05/18/16 [History Last Taken 10/06/23] empagliflozin 10 mg tablet (Jardiance) 10 mg PO DAILY diabetes 09/28/23 [History Last Taken 10/07/23] metoprolol succinate 25 mg tablet,extended release 24 hr 12.5 mg PO DAILY blood pressure 09/28/23 [History Last Taken 10/07/23] pantoprazole 40 mg tablet,delayed release 40 mg PO BID stomach acid 09/28/23 [History Last Taken 10/07/23] cholecalciferol (vitamin D3) 25 mcg (1,000 unit) tablet 50 mcg (2 x 25 mcg (1,000 unit)) PO QHS supplement #0 tabs 09/30/23 [Rx Last Taken 10/06/23] aspirin 81 mg tablet,delayed release 81 mg PO DAILY heart 10/01/23 [History Last Taken 10/07/23] spironolactone 25 mg tablet 12.5 mg PO MOWEFR FLUID 10/07/23 [History Last Taken 10/06/23] baclofen 5 mg tablet 5 mg PO BID 02/21/24 [History Last Taken Unknown] calcium carbonate 600 mg-vitamin D3 10 mcg (400 unit) tablet 1 tab PO BID 02/21/24 [History Last Taken Unknown] escitalopram oxalate 10 mg tablet 10 mg PO DAILY 02/21/24 [History Last Taken Unknown] metformin 500 mg tablet,extended release 24 hr 500 mg PO DAILY 02/21/24 [History Last Taken Unknown] oxybutynin chloride 5 mg tablet,extended release 24 hr 5 mg PO DAILY 02/21/24 [History Last Taken Unknown] rosuvastatin 20 mg tablet 20 mg PO QHS 02/21/24 [History Last Taken Unknown] sacubitril 24 mg-valsartan 26 mg tablet (Entresto) 0.5 tab PO BID 02/21/24 [History Last Taken Unknown] Allergy/AdvReac Type Severity Reaction Status Date / Time No Known Allergies Allergy Verified 02/21/24 14:04 Family History Father Heart disease Mother Anxiety and depression Suicide and self-inflicted injury from suicide age 52. Surgical History History of cardiac defibrillator placement History of cholecystectomy History of coronary artery stent placement History of skin surgery S/P colon polypectomy Social History household members: spouse Smoking Status: Former smoker how long ago did patient quit smokin-1.5 ppd from teen until quit in 2008. alcohol intake: never substance use type: does not use ROS Constitutional Constitutional: Denies anorexia, change in weight, chills, fatigue, fever(s), malaise, night sweats or weakness Eyes Eyes: Denies blurry vision, change in vision, discharge from eye(s) or eye pain Cardiovascular Cardiovascular: Denies chest pain, claudication, dyspnea on exertion, edema or palpitations Respiratory/Chest Respiratory/Chest: Denies cough, hemoptysis, shortness of breath at rest or shortness of breath with exertion Gastrointestinal Gastrointestinal: Reports abdominal pain and hematochezia; Denies constipation, diarrhea, hematemesis, melena, nausea or vomiting Genitourinary Genitourinary: Denies difficulty urinating, dysuria, hematuria, urinary frequency, urinary hesitancy, urinary incontinence or urinary urgency Musculoskeletal Musculoskeletal: Denies back pain, joint pain, joint stiffness, joint swelling, myalgias or neck pain Neurologic Neurologic: Denies abnormal gait, abnormal speech, dizziness, focal weakness, headache(s), loss of vision, numbness, other visual disturbances, paresthesias, syncope or tingling Psychiatric Psychiatric: Denies anxiety, cognitive impairment, depression, irritability, mood swings or suicidal ideation Endocrine Endocrinology: Denies change in body appearance, cold intolerance, excessive sweating, heat intolerance, polydipsia or polyuria Hematologic/Lymphatic Hematologic/Lymphatic: Denies none, anemia, easy bleeding, easy bruising or lymphadenopathy Allergic/Immunologic Allergic/Immunologic: Denies rhinitis, urticaria, eczemia or asthma Vital Signs Vital Signs Vital Signs: 02/21/24 14:00 02/21/24 14:00 02/21/24 14:03 Temperature 97.1 F L 97.1 F L 97.1 F L Temperature Source Temporal Temporal Temporal Pulse Rate 91 91 91 Respiratory Rate 16 16 16 Blood Pressure 84/50 L 84/50 L 84/50 L Blood Pressure Mean 61 61 61 Pulse Ox 97 97 97 Oxygen Delivery Method Room Air Room Air Room Air 02/21/24 15:03 02/21/24 16:00 02/21/24 16:00 Temperature 98 F 98 F Temperature Source Temporal Temporal Pulse Rate 90 90 90 Respiratory Rate 18 18 18 Blood Pressure 94/57 L 100/60 100/60 Blood Pressure Mean 69 73 73 Pulse Ox 97 96 96 Oxygen Delivery Method Room Air Room Air Room Air 02/21/24 17:13 02/21/24 16:15 02/21/24 16:30 Temperature 98 F Temperature Source Temporal Pulse Rate 64 Respiratory Rate 18 Blood Pressure 102/62 104/40 L 96/55 L Blood Pressure Mean 75 59 69 Pulse Ox 98 Oxygen Delivery Method Room Air 02/21/24 16:45 02/21/24 17:13 02/21/24 17:15 Temperature Temperature Source Pulse Rate 63 Respiratory Rate 14 Blood Pressure 84/63 L 102/62 Blood Pressure Mean 70 72 Pulse Ox 81 Oxygen Delivery Method 02/21/24 17:30 02/21/24 17:45 02/21/24 18:00 Temperature Temperature Source Pulse Rate 63 67 69 Respiratory Rate 16 17 16 Blood Pressure 96/46 L 100/44 L 95/44 L Blood Pressure Mean 62 61 60 Pulse Ox 100 95 94 Oxygen Delivery Method 02/21/24 19:53 02/21/24 19:53 Temperature 98.2 F 98.2 F Temperature Source Oral Pulse Rate 66 66 Respiratory Rate 20 H 20 H Blood Pressure 105/45 L 105/45 L Blood Pressure Mean 65 65 Pulse Ox 97 97 Oxygen Delivery Method Room Air Weight Weight: 60.4 kg Body Mass Index (BMI) 20.2 Physical Exam Const alert, oriented x3, no apparent distress, average body habitus and healthy appearing General Appearance: cooperative, well kempt and well developed Orientation / Consciousness: awake, oriented to person, oriented to place and oriented to time HEENT normocephalic, head/scalp atraumatic, hearing grossly normal bilaterally and moist oral mucous membranes Eyes PERRL, EOMs intact bilaterally and conjunctivae normal Neck supple, no JVD, thyroid normal and no carotid bruits General: trachea midline Resp normal respiratory effort, no retractions, no use of accessory muscles and clearto auscultation bilaterally Auscultation: Negative for rales, rhonchi or wheezes Cardio regular rate, regular rhythm, S1 normal heart sound, S2 normal heart sound, no murmurs, no rub and no gallops GI normal to inspection, nondistended, normoactive bowel sounds, soft to palpation,non-tender and non-distended Extremity no clubbing, cyanosis or edema Skin no rashes or lesions noted General Skin Exam: no breakdown Neuro oriented x3, CN's II-XII intact bilaterally, moves all extremities, no focal motor deficits and no sensory deficits noted Neuro Narrative: Patient has a mild speech impediment Sensorium / Orientation: awake and alert Psych affect normal Results Lab / Micro Data 02/21/24 14:25 02/21/24 14:25 Labs: Laboratory Results - last 24 hr 02/21/24 14:25: WBC 20.5 H, RBC 3.98 L, Hgb 12.2, Hct 36.4 L, MCV 91.5, MCH 30.7, MCHC 33.5, RDW Std Deviation 45.0 H, RDW Coeff of Edita 13.3, Plt Count 198,MPV 11.3, Immature Gran % (Auto) 0.700, Neut % (Auto) 88.4 H, Lymph % (Auto) 5.3L, [place] % (Auto) 5.5, Eos % (Auto) 0.0, Baso % (Auto) 0.1, Absolute Neuts (auto)18.1 H, Absolute Lymphs (auto) 1.08, Nucleated RBC % 0, Sodium 137, Potassium 4.6, Chloride 100, Carbon Dioxide 24.0, Anion Gap 13, BUN 31 H, Creatinine 2.08 H, Est GFR (MDRD) Af Amer 30 L, Est GFR (MDRD) Non-Af 25 L, BUN/Creatinine Ratio14.9, Glucose 241 H, Calcium 9.4, Total Bilirubin 0.60, AST 35, ALT 28, AlkalinePhosphatase 58, Total Protein 7.8, Albumin 3.7, Globulin 4.1, Albumin/Globulin Ratio 0.9, Lipase 18 02/21/24 15:15: PT Cancelled, INR Cancelled, APTT Cancelled, Lactic Acid 2.3 H* 02/21/24 16:26: PT 15.1 H, INR 1.2, APTT 24.8 02/21/24 17:02: Urine Color Yellow, Urine Clarity Clear, Urine pH 5.0, Ur Specific [place] 1.015, Urine Protein 15 H, Urine Glucose (UA) 1000 H, Urine Ketones 5 H, Urine Occult Blood 10 H, Urine Nitrite Negative, Urine Bilirubin 1 H, Urine Urobilinogen 1 H, Ur Leukocyte Esterase 25 H, Urine RBC 0-5 SEEN, Urine WBC 0-5 SEEN, Ur Squamous Epith Cells 0-5 SEEN, Urine Bacteria 0 SEEN, Urine Mucus 0 SEEN 02/21/24 20:21: Lactic Acid 1.5 Micro: Microbiology 02/21/24 16:20 Stool Stool Occult Blood (EDUARDO) - Final Occult Blood Positive Imaging Radiology Impression Abdomen CT 02/21/24 16:37 IMPRESSION: New inflammation along the length of the descending colon concerning for infectious or inflammatory colitis. Interval resolution of previous large colonic stool burden. Consider GI follow-up. Sigmoid colonic diverticulosis without focal inflamed diverticulum is just diverticulitis. New hyperdensity within previously hypodense left renal upper pole cyst on February 19, 2024. Change in attenuation may represent interval hemorrhage within the cyst. Follow-up multiphasic contrast-enhanced CT is recommended when clinically able to exclude underlying solid neoplastic component. Aortic atherosclerosis with mild aneurysmal ectasia to 2.7 cm Electronically Signed: Antonio Max MD at 18:54 EDT , Assessment & Plan Assessment/Plan (1) Gastrointestinal bleeding, lower: PLAN: Plan 1. Colitis-etiology unclear, patient will be admitted to [facility] 3, she was placed on IV antibiotics will be seen by gastroenterology, she may need endoscopic studies performed. #2 lower gastrointestinal bleeding secondary to #1-labs will be monitored #3 type 2 diabetes-patient's blood sugars will be monitored, sliding scale insulin will be given as necessary #4 ischemic cardiomyopathy-status post biventricular implantable cardio defibrillator-patient will remain on her outpatient medication #5 essential hypertension-patient will remain on her outpatient medications #6 cerebral palsy-complicates care, management, recovery, and prognosis #7 cerebrovascular disease-patient is currently on aspirin and Plavix, these will be held due to her lower GI bleeding #8 hyperlipidemia-patient is on statin #9 chronic anxiety/depression-patient will remain on her outpatient medications #10 abnormality of the left renal upper pole cyst-patient will need follow-up multiphase contrast-enhanced CT when clinically able to exclude underlying solid neoplastic component. Dayshift hospitalist will need to arrange this. Total clinical time spent by myself addressing the patient's medical issues, reviewing all of her data, and collaborating with patient's care team: 75 minutes Charges/Coding Visit Charges Inpatient E&M: 10455 Init Hosp L3 02/21/242134 <Electronically signed by Ben Johnson DO> Cosigner Signature (if applicable): CC: Dr. Ben Johnson, ; Dr. Adrienne Byers DO~ Signed [facility] Work Phone: [phone]) 926-747002-05-2024 Note ORIGINAL EXAMINATION: BONE DENSITOMETRY 12/27/2023 2:34 pm TECHNIQUE: A bone density dual x-ray absorptiometry (DEXA) scan was performed of the axial (e.g. hips, spine) and/or appendicular (e.g. radius) skeleton as appropriate. COMPARISON: None. HISTORY: ORDERING SYSTEM PROVIDED HISTORY: Reason for Exam: Osteoporosis Screening FINDINGS: T Score Left Femoral Neck: -0.2 Left Femoral Neck: 0.825 (g/cm2) T Score Left Hip: -1.3 Left Hip: 0.787 (g/cm2) T Score Lumbar Spine: -0.1 Lumbar Spine: 1.034 (g/cmd2) FRAX: 10 year fracture risk assessment Major osteoporotic fracture: 6.6% Hip fracture: 0.5% IMPRESSION: Osteopenia by WHO criteria. World Health Organization criteria: (Comparing with young normal sex matched population) - Normal: T-score at or above -1 SD (standard deviation) - Osteopenia: T-score between -1 and -2.5 SD - Osteoporosis: T-score at or below -2.5 SD The NOF recommends that FDA-approved medical therapies be considered in post-menopausal women and men age >/= 50 years with a: * Hip or vertebral fracture, or * T-score of /= 20% for major osteoporotic fractures or * >/= 3% for hip fractures All treatment decisions require clinical judgement and consideration of individual patient factors, including patient preferences, comorbidities, previous drug use, risk factors not captured in the FRAX registered model (e.g., frailty, falls, vitamin D deficiency, increased bone turnover, interval significant decline in bone density) and possible under- or over-estimation of fracture risk by FRAX. Interpreted by: Tony Llanes DO Preliminary Report By: Tony Llanes DO Electronically signed By Tony Llanes DO Dictated Date: 12/27/2023 3:14:26 PM Prelim Date: 12/27/2023 3:14:57 PM Sign Date: 12/27/2023 3:14:57 PM Ordering Provider: ADRIENNE Manzanares [facility]01-17-2024 Discharge summary Author Uday Orosco [facility] December 08, 2023 6:11pm Note Date/Time December 08, 2023 4 :37pm [facility] Medical Records Department [address] [place] [address] Emergency Department Summary 12/08/23 MR#: [id number] Acct: [id number] Name: MANSI CARO Rep #:[id number] : 1955 68 From: Uday Orosco DO PCP: Dr. Adrienne Byers DO Status:REG ER Location: ED HPI History of Present Illness Chief Complaint: Fall Narrative Narrative: Patient presenting after mechanical fall a week ago. She states she fell on herright hip. She is not having difficulty walking. Denies numbness or tingling. Patient states today her right hip started to hurt. She does not know why. Shehas not had any new injury. Patient denies numbness or tingling. Patient feelsotherwise well. She presents with her who states she has been eating and drinking normally. She making normal urine and stool. She has not been at her baseline. [facility] Medical History Anxiety and depression AV node dysfunction Cardiac resynchronization therapy defibrillator (HEAD BELLHOP CAPTAIN-D) in place Cerebral palsy Congestive heart failure (CHF) Coronary artery disease CVA (cerebral vascular accident) Diabetes mellitus Former smoker Heart failure with reduced ejection fraction High cholesterol Hyperlipidemia Hypertension ICD (implantable cardioverter-defibrillator) in place Insomnia Ischemic cardiomyopathy Myocarditis Pacemaker PFO (patent foramen ovale) Presence of biventricular implantable cardioverter-defibrillator Restless legs Transient ischemic attack Ulcer Home Medications citalopram 20 mg tablet 20 mg PO QHS depression 11/18/14 [History Last Taken 10/06/23] clonazepam 1 mg tablet 1 mg PO QHS anxiety 11/18/14 [History Last Taken 10/06/23] metformin 500 mg tablet 500 mg PO DAILY diabetes 11/18/14 [History Last Taken 10/07/23] multivitamin with folic acid 400 mcg tablet (Thera) 1 tab PO DAILY vitamin 11/18/14 [History Last Taken 10/07/23] trazodone 50 mg tablet 50 mg PO DAILY PRN Anxiety 11/18/14 [History Last Taken 10/06/23] clopidogrel 75 mg tablet 1 tab PO QHS anti platelet 05/18/16 [History Last Taken 10/06/23] empagliflozin 10 mg tablet (Jardiance) 10 mg PO DAILY diabetes 09/28/23 [History Last Taken 10/07/23] metoprolol succinate 25 mg tablet,extended release 24 hr 12.5 mg PO DAILY blood pressure 09/28/23 [History Last Taken 10/07/23] pantoprazole 40 mg tablet,delayed release 40 mg PO BID stomach acid 09/28/23 [History Last Taken 10/07/23] sacubitril-valsartan 0.5 tab PO BID HTN 09/28/23 [History Last Taken 10/07/23] cholecalciferol (vitamin D3) 25 mcg (1,000 unit) tablet 50 mcg (2 x 25 mcg (1,000 unit)) PO QHS supplement #0 tabs 09/30/23 [Rx Last Taken 10/06/23] aspirin 81 mg tablet,delayed release 81 mg PO DAILY heart 10/01/23 [History Last Taken 10/07/23] atorvastatin 40 mg tablet 40 mg PO QHS CHOLESTEROL 10/07/23 [History Last Taken 10/06/23] baclofen 10 mg tablet 10 mg PO BID MUSCLE SPASMS 10/07/23 [History Last Taken 10/07/23] enoxaparin 40 mg/0.4 mL subcutaneous syringe 40 mg subcut 0600 BLOOD THINNER 10/07/23 [History Last Taken 10/07/23] spironolactone 25 mg tablet 12.5 mg PO MOWEFR FLUID 10/07/23 [History Last Taken 10/06/23] Allergy/AdvReac Type Severity Reaction Status Date / Time No Known Allergies Allergy Verified 12/08/23 13:03 Family History Father Heart disease Mother Anxiety and depression Suicide and self-inflicted injury from suicide age 52. Surgical History History of cardiac defibrillator placement History of cholecystectomy History of coronary artery stent placement History of skin surgery S/P colon polypectomy Social History household members: spouse Smoking Status: Former smoker how long ago did patient quit smokin-1.5 ppd from teen until quit in 2008. alcohol intake: never substance use type: does not use ROS ROS ED Constitutional Constitutional ED: Denies chills, fever(s) or sweats Eyes Eyes: Denies blurry vision or change in vision ENT ENT ED: Denies ear pain or sore throat Cardiovascular Cardiovascular: Denies chest pain, palpitations or racing heartbeat Respiratory/Chest Respiratory/Chest: Denies cough, dyspnea or sputum Gastrointestinal Gastrointestinal: Denies abdominal pain, constipation, diarrhea, nausea or vomiting Genitourinary Genitourinary ED: Denies dysuria, hematuria or urinary frequency Musculoskeletal Musculoskeletal: Reports other Details: Right hip pain ; Denies arthralgias, myalgias or neck pain Integumentary Denies abscess, Abrasions or rash Neurologic Neurologic: Denies headache(s), paresthesias or weakness Psychiatric Psychiatric: Denies anxiety, depression, suicidal ideation or suicidal thoughts Endocrine Endocrinology: Denies polydipsia or polyuria EXAM Physical Exam Const Vital Signs: 12/08/23 13:03 12/08/23 15:46 12/08/23 15:46 Temperature 96.7 F L Temperature Source Temporal Pulse Rate 59 L 67 Respiratory Rate 20 H 24 H Respiratory Effort Blood Pressure 104/59 L 104/56 L Blood Pressure Mean 74 72 Pulse Ox 100 96 Oxygen Delivery Method Room Air Room Air Room Air 12/08/23 15:46 12/08/23 17:00 Temperature Temperature Source Pulse Rate 83 Respiratory Rate 16 Respiratory Effort Normal Blood Pressure 118/66 Blood Pressure Mean 83 Pulse Ox 97 Oxygen Delivery Method Room Air Room Air Positive well nourished General Appearance ED: NAD HEENT trauma Eyes PERRL and EOMs intact bilaterally Resp normal respiratory effort Extremity Extremity Narrative: Mild tenderness palpation right lateral hip over the greater trochanter. Right knee extensor mechanism intact. Unable to flex the hip without any difficulty. Internal and external rotation do not appear to cause any exacerbation of the pain. Patient was able to get up and stand and walk around the room to try to isolate her pain. Neuro oriented x3 Sensorium / Orientation: alert Psych mental status grossly normal MDM MDM MDM Narrative Medical decision making narrative: Patient presenting with right hip pain after falling a week ago. She initially did not have any pain. She states the pain started today out of nowhere. Otherwise she has been up and about and has been able to carry on her activitiesof daily living and she was out shopping today when she noticed her hip hurt. Denies any trauma. Differential includes contusion versus muscle strain. X-rayof the right hip will be obtained. Patient given Toradol for pain. X-ray of the right hip on my interpretation is no acute fracture. Radiology interprets this and agrees. Patient discharged home in stable condition. Impression: 1. Mechanical fall 2. Right hip contusion Lab Data Attestation: I reviewed the patient's lab results. Labs: Laboratory Results - last 24 hr 12/08/23 15:45 POC Glucose 129 H Radiography Diagnostic Testing: Clinical Impression(s) from Imaging Studies Hip/Pelvis X-Ray 12/08/23 16:50 IMPRESSION: No evidence of displaced pelvic or hip fracture. Electronically Signed: Bishop Nichols MD at 17:12 EST , Discharge Plan Triage Chief Complaint: Fall ED Provider: Uday Orosco Dx/Rx/DC Orders Instructions: ED Hip Contusion, ED Fall Prevention Prescriptions: No Action metformin 500 MG tablet 500 mg PO DAILY trazodone 50 MG tablet 50 mg PO DAILY PRN (Reason: Anxiety) clonazepam 1 MG tablet 1 mg PO QHS citalopram 20 MG tablet 20 mg PO QHS multivitamin with folic acid [Thera] 1 TABLET tablet 1 tab PO DAILY clopidogrel 75 MG tablet 1 tab PO QHS sacubitril-valsartan [Entresto] 0.5 tab PO BID Jardiance 10 mg tablet 10 mg PO DAILY metoprolol succinate 25 mg tablet extended release 24 hr 12.5 mg PO DAILY pantoprazole 40 MG tablet 40 mg PO BID cholecalciferol (vitamin D3) 25 mcg (1,000 unit) Tablet 50 mcg PO QHS Qty: 0 0RF aspirin 81 mg tablet,delayed release (DR/EC) 81 mg PO DAILY atorvastatin 40 mg tablet 40 mg PO QHS spironolactone 25 mg tablet 12.5 mg PO MOWEFR baclofen 10 mg tablet 10 mg PO BID enoxaparin 40 mg/0.4 mL syringe 40 mg subcut 0600 Primary Care Provider: Adrienne Byers Referrals: Adrienne Byers DO [Primary Care Provider] - Disposition Disposition: Home, Self Care Capacity Legal Bottled Beverage Inspector Reflex Medical hold order details:: IF a medical hold is selected below, a suggested order for a MEDICAL HOLD will reflex upon signing the document. Next of kin: [place] law dictates a PRIORITY LIST for identifying legal decision-maker/legal next of kin in the following order (LNOK): 1st: The patient?s legal guardian, if any 2nd: The patient's spouse (if status is questionable, consult Risk Management) 3rd: The patient?s adult child(kristopher) (majority, if multiple children) 4th: The patient?s parents 5th: The patient?s adult siblings (majority, if multiple children siblings) What to do if you have Problems For any increased pain, shortness of breath, bleeding, nausea or vomiting, chestpain, or any unexpected problems, contact your Primary Care Provider. Call [facility] ([phone]) or report to the closest Emergency Room. Call 911 if necessary. 12/08/231810 <Electronically signed by Uday Orosco DO> Cosigner Signature (if applicable): CC: Dr. Adrienne Byers DO ~ Signed [facility] Work Phone: [phone]) 427-205211-29-2023 History of Present illness Narrative* Sherif Ramirez MD - 10/20/2023 3:30 PM EST [facility] - FOLLOW UP EVALUATION Jesus Manuel Freitas DO, DO [address] [facility] [id number] Dear Jesus Manuel Freitas DO, DO: I had the pleasure of seeing Ms. Caro for follow-up today. As you know she is a 68 year old right-handed female with a history of left hand tremor since 2021. How do you feel about your current treatment plan for the condition you are being seen today? I am content with the current plan She is seen with her . We had a visit using: [employer] I have communicated my name and active licensure. The patient's identity and physical location wereverified at the time of this visit. Either the patient or their legal sales representative malt liquors has been informed of the risks and benefits of -- and alternatives to -- treatment through a remote evaluation andconsents to proceed with the evaluation remotely. Subjective HISTORY OF PRESENT ILLNESS: During her previous visit the following plan was made: Previous plan-07/01/2023 Visit: Try taking trazodone 1 hour before bedtime Consider sleep study versus Sleep Medicine referral if medication adjustments don't help Please get Clemencia scan done in around 3 months and follow up with me that same after Hold off on Sinemet for now She was hospitalized 2.5 weeks ago for a TIA and had another one while she was in the hospital. Both times were MRI negative. Patient has been having on and off tremor. Left hand has a postural and action tremor. Overall tremor is fairly bothersome. Trazodone seems to be working better now and is no longer having trouble sleeping. Questionnaires: In addition, the following areas that may be affected by abnormal involuntary movements were evaluated: Daily activities Difficulties with eating: Yes (mild) Difficulties in dressin (none) Difficulties with hygiene activities: 0 (none) Difficulties with handwritin (none) Difficulties with doing hobbies and other activities: 0 (none) Difficulties turning in bed: 0 (none) Difficulties getting out of bed, car or chair: 0 (none) Tremors/Gait/Balance Shaking or tremors: Yes (slight) Walking and balance problems: Yes (slight) Number of falls in the Last Month: 0 Gait freezin (none) Autonomic/Pain Lightheadeness on standing: Yes (slight) Urinary problems: Yes (slight) Constipation problems: Yes (slight) Pain and other sensations: Yes (slight) Speech/Swallowing Speech problems: 0 (none) Droolin (none) Chewing and swallowing problems: 0 (none) Sleep/Fatigue Sleep problems: Yes (slight) Daytime sleepiness: Yes (slight) Fatigue: Yes (slight) Mood/Behavior Depression: PHQ-9 Score: 4 usually representing no significant (0-4) depression. Anxiety: JENNY-7 Total Score: 8 usually representing mild (5-9) anxiety. Finally, the following table shows the patient's overall global physical and mental health using the PROMIS scale: PROMIS-10 Flowsheet Row Appointment from 10/20/2023 in [facility] Office Visit from 05/12/2023 in Rehab Medicine Global Physical Health T Score 32.4 32.4 Global Mental Health T Score 36.3 33.8 0-10 Standard Pain Scale 3 4 *PROMIS-10 scoring scale: mean = 50, over 50 is above average, under 50 is below average ALLERGIES Allergen Reactions Lipitor [Atorvastat* Heart racing; 07/04/10 patient states that she had started a lot of medication at this time and the she did not have a true allergic reaction and is willing to rechallenge Jose RN Current Outpatient Medications Medication Sig baclofen (LIORESAL) 5 mg tablet 1 tab am, midday and 2 tab hs. Do not abruptly stop if at high dose, risk for withdrawal seizures. clonazePAM (KLONOPIN) 1 mg tablet Take 1 mg by mouth daily at bedtime. furosemide (LASIX) 20 mg tablet as needed. spironolactone (ALDACTONE) 25 mg tablet 12.5 mg every other day. traZODone (DESYREL) 50 mg tablet Take 50 mg by mouth as needed. sacubitril-valsartan (ENTRESTO) 24-26 mg tablet Take 1 tablet by mouth twice daily. BABY ASPIRIN ORAL Take 81 mg by mouth every other day. oxybutynin (DITROPAN) 5 mg/5 mL syrup Take 5 mg by mouth every other day. pantoprazole DR (PROTONIX) 40 mg tablet Take 1 tablet by mouth twice daily. metFORMIN (GLUCOPHAGE) 500 mg tablet Take 1 tablet by mouth twice daily. rosuvastatin (CRESTOR) 5 mg ORAL Tab 1 qd No current facility-administered medications for this visit. Objective Physical Examination: General: Awake, alert, interactive, no acute distress, good nutritional status, normal development,well-kept Neurological Examination: Awake, alert, oriented. Able to connect to virtual platform and provide an accurate history Cranial nerves grossly intact tardive mouth movements throughout Able to move extremities spontaneously without any apparent weakness Left hand mild postural and action tremor. Right hand slight. Right slight, left hand mild bradykinesia without decrement. Finger tapping is worst Pertinent Studies MRI brain (2008): Evolving subacute infarcts in the left frontal, parietal, and supra occipital regions. No recent brain scans. Assessment Ms. 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 Plan of care was to discontinue Abilify and observe for symptom resolution. One year later, there has been significant reduction of symptoms, but tremor still persists, suggesting that there may have been unmasking of very early primary parkinsonism. Given reaction to Sinemet, Clemencia scan was performed which was negative. The following are the current problems noted and addressed during this visit: Tremor of left hand Essential tremor (primary encounter diagnosis) Plan 10/20/2023 Visit: Please start PT Referral for OT Follow up in 3-6 months Interested in clinical research? Not currently Thank you for allowing me to be part of the clinical care of this patient! I look forward to continued participation in the patient s care with you. Please do not hesitate to call with any questions. Sincerely, Sherif Ramirez MD Associate Staff [facility] Discharge summary Author Camacho Aguilar [facility] October 12, 2023 11:27am Note Date/Time October 12, 2023 11:25am [facility] Medical Records Department [address] [place] [address] Instructions for Home/Discharge Instructions 10/12/23 1124 MR#: [id number] Acct: [id number] Name: MANSI CARO Rep #:[id number] : 1955 68 From: Camacho renner MD PCP: Dr. Adrienne Byers, DO Status:ADM ANGELIA Discharge Instructions Diet Discharge Diet: Low fat / Low cholesterol, 6 Cup Fluid Restriction and Carb Control Diet Activity Discharge Activity: Return to Normal Activity Dressing / Incision Call your doctor if you observe: Fever of 101 or Higher, Shortness of breath, Dizziness, Fainting spells, Swelling in the ankles, Chest pain and Increased palpitations (irregular heartbeat) Follow Up Care Test Results: Test results from this visit will be discussed in further detail at your follow- up appointment, if applicable. Discharge Plan Admission Admit Date/Time: 10/07/23 13:57 Attending Provider: Camacho Aguilar Primary Care Provider: Adrienne Byers Consulting Providers: Jaci Greco; Tony Mayer Instructions Additional Instructions / Restrictions: Obtain an outpatient referral for neurology by her PCP for further evaluation ofthe spasticity, your EEG and your MRI were unremarkable Discharge Orders/Prescriptions Prescriptions: Continued metformin 500 MG tablet 500 mg PO DAILY trazodone 50 MG tablet 50 mg PO DAILY PRN (Reason: Anxiety) clonazepam 1 MG tablet 1 mg PO QHS citalopram 20 MG tablet 20 mg PO QHS multivitamin with folic acid [Thera] 1 TABLET tablet 1 tab PO DAILY clopidogrel 75 MG tablet 1 tab PO QHS sacubitril-valsartan [Entresto] 0.5 tab PO BID Jardiance 10 mg tablet 10 mg PO DAILY metoprolol succinate 25 mg tablet extended release 24 hr 12.5 mg PO DAILY pantoprazole 40 MG tablet 40 mg PO BID cholecalciferol (vitamin D3) 25 mcg (1,000 unit) Tablet 50 mcg PO QHS Qty: 0 0RF aspirin 81 mg tablet,delayed release (DR/EC) 81 mg PO DAILY atorvastatin 40 mg tablet 40 mg PO QHS spironolactone 25 mg tablet 12.5 mg PO MOWEFR baclofen 10 mg tablet 10 mg PO BID enoxaparin 40 mg/0.4 mL syringe 40 mg subcut 0600 Referrals / Follow Up: Adrienne Byers DO [Primary Care Provider] - Within 1 Week Disposition Disposition (needs filled in before D/C Order can be placed): Home, Self Care 10/12/23 1127<Electronically signed by Camacho Aguilar MD>Camacho Aguilar MD CC: Dr. Jaci Greco MD; Dr. Tony Mayer MD; Dr. Adrienne Byers DO ~ Signed [facility] Work Phone: 1(115) 666-550311-20-2023 Progress note Author Camacho Aguilar [facility] October 11, 2023 10:04am Note Date/Time October 11, 2023 10:04am [facility] Medical Records Department [address] [place] [address] Progress Note - Hospitalist 10/11/23 1001 MR#: [id number] Acct: [id number] Name: MANSI CARO Rep #:[id number] : 1955 68 From: Camacho renner MD PCP: Dr. Adrienne Byers DO Status:ADM ANGELIA Location: [place] [address] Subjective Subjective Doing well, no issues overnight. Feels better than when she came in. Objective Data Objective Data Vital Signs: Vital Signs Temp Pulse Resp BP Pulse Ox O2 Del Method 97.1 F L 60 16 132/99 H 97 Room Air 10/11/23 03:00 10/11/23 03:00 10/11/23 03:00 10/11/23 03:00 10/11/23 03:00 10/11/23 03:35 Oxygen Delivery Method Room Air Weight: 139 lb 5.314 oz Body Mass Index (BMI) 21.2 Intake & Output: Intake and Output for Last 24 Hours 10/10/23 10/11/23 10/12/23 03:59 03:59 03:59 Intake Total 930 / 930 400 / 400 Balance 930 / 930 400 / 400 Lab / Micro Data 10/11/23 04:33 10/11/23 04:33 Labs: Laboratory Results - last 24 hr 10/10/23 11:35: POC Glucose 211 H 10/10/23 16:43: POC Glucose 131 H 10/10/23 21:00: POC Glucose 142 H 10/11/23 04:33: WBC 5.2, RBC 3.75 L, Hgb 11.5 L, Hct 36.0 L, MCV 96.0, MCH 30.7,MCHC 31.9 L, RDW Std Deviation 48.7 H, RDW Coeff of Edita 13.7, Plt Count 144 L, MPV 10.8, Immature Gran % (Auto) 0.000, Neut % (Auto) 33.5 L, Lymph % (Auto) 54.9 H, [place] % (Auto) 8.3, Eos % (Auto) 2.5, Baso % (Auto) 0.8, Absolute Neuts (auto) 1.7 L, Absolute Lymphs (auto) 2.84, Nucleated RBC % 0, Sodium 142, Potassium 4.0, Chloride 111 H, Carbon Dioxide 25.0, Anion Gap 6, BUN 25 H, Creatinine 0.92, Estim Creat Clear Calc 56.77, Est GFR (MDRD) Af Amer 78, Est GFR (MDRD) Non-Af 64, BUN/Creatinine Ratio 27.2 H, Glucose 123 H, Calcium 8.7, Phosphorus 3.6, Magnesium 2.2 10/11/23 06:22: POC Glucose 130 H Physical Exam Narrative General: Alert, Oriented x3, Cooperative, No apparent distress HEENT: Atraumatic, PERRLA, EOMI, Normocephalic Oral: Moist Mucosa Neck: Supple, No JVD Lungs: Diminished, normal air movement, No rhonchi, No wheeze, No rales Cardiovascular: Regular rate, Regular Rhythm, Normal S1, Normal S2, No murmurs Abdomen: Soft, Non Tender, Non-Distended, No Hepato-splenomegaly Extremities: No edema, Capillary Refill Less than 3 Seconds Skin: No rashes, No breakdown Musculoskeletal: No Tenderness to Palpation of Joints or Extremities Neurological: Moves all extremities, Sensory exam intact to light touch and pain Psych/Mental Status: Flat Assessment & Plan Assessment/Plan (1) CVA (cerebral vascular accident): PLAN: Plan 1. Recurrent right-sided weakness with spasticity ? Patient admitted to monitored bed currently being worked up for possible CVA. Was seen in consultation by neurology and EEG was recommended to be performed awaiting results. MRI was also ordered results pending ? 10/09/2023;Patient's MRI was negative for acute CVA. EEG was ordered results pending ? 10/10/2023;Patient EEG demonstrated mild diffuse encephalopathy with no epileptiform discharges, seizure pattern or lateralizing signs. Patient continues to experience intermittent spasms involving the upper extremities. Awaiting insurance precertification prior to transfer back to the transitional care unit ? 10/11/2023: Awaiting pre-CERT to return to TCU 2. Remote CVA involving the left MCA/CAD/HTN/HLD/chronic systolic CHF ? With residual right-sided weakness. Patient remains on dual antiplatelet therapy in addition to statin therapy ? Continue with blood pressure medications ? We will monitor and make adjustments as necessary 3. Diabetes mellitus type II -patient's oral 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s held. Placed on long acting insulin, Accu-Cheks a.c. and at bedtime and covered with sliding scale insulin 4 Depression with anxiety ? Patient is on citalopram 5. GERD ? On PPI DVT: Lovenox Charges/Coding Visit Charges Inpatient E&M: 45157 Subs Hosp L2 10/11/23 1004 <Electronically signed by Camacho Aguilar MD> Cosigner Signature (if applicable): CC: ~ Signed [facility] Work Phone: 1(627) 112-360911-19-2023 Progress note Author Tony Mayer [facility] October 10, 2023 10:13am Note Date/Time October 10, 2023 7:57am [facility] Medical Records Department [address] [place] [address] Progress Note - Hospitalist 10/10/23 0754 MR#: [id number] Acct: [id number] Name: MANSI CARO Rep #:[id number] : 1955 68 From: Tony Mayer MD PCP: Dr. Adrienne Byers, DO Status:ADM ANGELIA Location: [place] [address] Reason for Visit Reason for Visit: Diagnoses Cerebral infarction, unspecified (10/07/23) Subjective Subjective Patient EEG demonstrated mild diffuse encephalopathy with no epileptiform discharges, seizure pattern or lateralizing signs. Patient continues to experience intermittent spasms involving the upper extremities. Awaiting insurance precertification prior to transfer back to the transitional care unit Objective Data Objective Data Vital Signs: Vital Signs Temp Pulse Resp BP Pulse Ox O2 Del Method 97.5 F L 66 16 121/67 H 95 Room Air 10/10/23 03:50 10/10/23 03:50 10/10/23 03:50 10/10/23 03:50 10/10/23 03:50 10/10/23 03:55 Oxygen Delivery Method Room Air Weight: 62 kg Body Mass Index (BMI) 20.7 Intake & Output: Intake and Output for Last 24 Hours 10/08/23 10/09/23 10/10/23 23:59 23:59 23:59 Intake Total 2019 1080 / 1080 Balance 2019 1080 / 1080 Lab / Micro Data 10/08/23 05:45 10/08/23 05:45 Labs: Laboratory Results - last 24 hr 10/09/23 12:13: POC Glucose 208 H 10/09/23 17:57: POC Glucose 107 H 10/09/23 21:08: POC Glucose 181 H 10/10/23 06:26: POC Glucose 126 H Physical Exam Narrative GENERAL: cooperative HEENT: Atraumatic; normocephalic EYES; Anicteric, Normal Conjunctiva NECK; supple, normal thyroid, RESPIRATORY: Diminished to auscultation CARDIOVASCULAR: Regular S1 S2, GI: soft, normoactive bowel sounds, : No Renal angle tenderness; EXTREMITIES: No edema, no clubbing, MUSCULOSKELETAL: no muscle wasting NEURO: Awake; right-sided hemiparesis SKIN: No Rash PSYCH; Flat affect Assessment & Plan Assessment/Plan (1) CVA (cerebral vascular accident): PLAN: Plan Patient is a 68-year-old lady who was admitted to the regular hospital followingepisodes of transient confusion with blurred vision and dysarthria. Stroke alert was called underwent subsequent evaluation 1. Recurrent right-sided weakness with spasticity ? Patient admitted to monitored bed currently being worked up for possible CVA. Was seen in consultation by neurology and EEG was recommended to be performed awaiting results. MRI was also ordered results pending ? 10/09/2023;Patient's MRI was negative for acute CVA. EEG was ordered results pending ? 10/10/2023;Patient EEG demonstrated mild diffuse encephalopathy with no epileptiform discharges, seizure pattern or lateralizing signs. Patient continues to experience intermittent spasms involving the upper extremities. Awaiting insurance precertification prior to transfer back to the transitional care unit 2. Remote CVA involving the left MCA ? With residual right-sided weakness. Patient remains on dual antiplatelet therapy in addition to statin therapy 3. Coronary artery disease ? Patient is on guideline directed medical therapy 4. Dyslipidemia -Patient is on statin therapy, continued at home dose 4. Hypertension - Blood pressure controlled, home medications continued with dose adjustment as needed 6. Chronic HFrEF/Hx ? Patient is on guideline directed medical therapy including spironolactone beta-blockers and Entresto 7. Ischemic Cardiomyopathy - s/p AICD, 8. Diabetes mellitus type II -patient's oral 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s held. Placed on long acting insulin, Accu-Cheks a.c. and at bedtime and covered with sliding scale insulin 9. Depression with anxiety ? Patient is on citalopram 10. GERD ? On PPI 11. DVT prophylaxis - On enoxaparin Time spent in the patient's overall evaluation,decision-making process, review of diagnostic data, adjustment of management, discussion with other providers, nursing nursing and ancillary staff involved in patient's care documentation, 35 Minutes Charges/Coding Visit Charges Inpatient E&M: 25492 Subs Hosp L2 10/10/23 1013 <Electronically signed by Tony Mayer MD> Cosigner Signature (if applicable): CC: ~ Signed [facility] Work Phone: 1(645) 921-396611-18-2023 Progress note Author Tony Dewittemmett [facility] October 09, 2023 9:43am Note Date/Time October 09, 2023 9:15am [facility] Medical Records Department [address] [place] [address] Progress Note - Hospitalist 10/09/23 0912 MR#: [id number] Acct: [id number] Name: MANSI CARO Rep #:[id number] : 1955 68 From: Tony Mayer MD PCP: Dr. Adrienne Byers, DO Status:ADM ANGELIA Location: [place] [address] Reason for Visit Reason for Visit: Diagnoses Cerebral infarction, unspecified (10/07/23) Subjective Subjective Patient's MRI was negative for acute CVA. EEG was ordered results pending Objective Data Objective Data Vital Signs: Vital Signs Temp Pulse Resp BP Pulse Ox O2 Del Method 97.9 F 63 17 130/88 H 96 Room Air 10/09/23 09:08 10/09/23 09:08 10/09/23 09:08 10/09/23 09:08 10/09/23 09:08 10/09/23 09:08 Oxygen Delivery Method Room Air Weight: 62.4 kg Body Mass Index (BMI) 20.9 Intake & Output: Intake and Output for Last 24 Hours 10/07/23 10/08/23 10/09/23 23:59 23:59 23:59 Intake Total 200 / 200 2019 270 / 270 Balance 200 / 200 2019 270 / 270 Lab / Micro Data 10/08/23 05:45 10/08/23 05:45 Labs: Laboratory Results - last 24 hr 10/08/23 05:45: Hemoglobin A1c 6.8 H 10/08/23 11:19: POC Glucose 245 H 10/08/23 16:34: POC Glucose 130 H 10/08/23 22:15: POC Glucose 124 H 10/09/23 06:29: POC Glucose 116 H Radiography Diagnostic Testing: Radiology Impression Brain MRI 10/08/23 12:15 IMPRESSION: Chronic microvascular ischemic changes. No intracranial hemorrhage, acute infarct, or space occupying or enhancing lesion. Electronically Signed: Moisés Ortega MD at 18:21 EST , Physical Exam Narrative GENERAL: cooperative HEENT: Atraumatic; normocephalic EYES; Anicteric, Normal Conjunctiva NECK; supple, normal thyroid, RESPIRATORY: Diminished to auscultation CARDIOVASCULAR: Regular S1 S2, GI: soft, normoactive bowel sounds, : No Renal angle tenderness; EXTREMITIES: No edema, no clubbing, MUSCULOSKELETAL: no muscle wasting NEURO: Awake; right-sided hemiparesis SKIN: No Rash PSYCH; Flat affect Assessment & Plan Assessment/Plan (1) CVA (cerebral vascular accident): PLAN: Plan Patient is a 68-year-old lady who was admitted to the regular hospital followingepisodes of transient confusion with blurred vision and dysarthria. Stroke alert was called underwent subsequent evaluation 1. Recurrent right-sided weakness with spasticity ? Patient admitted to monitored bed currently being worked up for possible CVA. Was seen in consultation by neurology and EEG was recommended to be performed awaiting results. MRI was also ordered results pending ? 10/09/2023;Patient's MRI was negative for acute CVA. EEG was ordered results pending 2. Remote CVA involving the left MCA ? With residual right-sided weakness. Patient remains on dual antiplatelet therapy in addition to statin therapy 3. Coronary artery disease ? Patient is on guideline directed medical therapy 4. Dyslipidemia -Patient is on statin therapy, continued at home dose 4. Hypertension - Blood pressure controlled, home medications continued with dose adjustment as needed 6. Chronic HFrEF/Hx ? Patient is on guideline directed medical therapy including spironolactone beta-blockers and Entresto 7. Ischemic Cardiomyopathy - s/p AICD, 8. Diabetes mellitus type II -patient's oral 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s held. Placed on long acting insulin, Accu-Cheks a.c. and at bedtime and covered with sliding scale insulin 9. Depression with anxiety ? Patient is on citalopram 10. GERD ? On PPI 11. DVT prophylaxis - On enoxaparin Time spent in the patient's overall evaluation,decision-making process, review of diagnostic data, adjustment of management, discussion with other providers, nursing nursing and ancillary staff involved in patient's care documentation, 35 Minutes Charges/Coding Visit Charges Inpatient E&M: 50118 Subs Hosp L2 10/09/23 0943 <Electronically signed by Tony Mayer MD> Cosigner Signature (if applicable): CC: ~ Signed [facility] Work Phone: 1(167) 403-604511-17-2023 Progress note Author Tony Mayer [facility] October 08, 2023 12:45pm Note Date/Time October 08, 2023 8:45am [facility] Medical Records Department [address] [place] [address] Progress Note - Hospitalist 10/08/2344 MR#: [id number] Acct: [id number] Name: MANSI CARO Rep #:[id number] : 1955 68 From: Tony Mayer MD PCP: Dr. Adrienne Byers, DO Status:ADM ANGELIA Location: [place] [address] Reason for Visit Reason for Visit: Diagnoses Cerebral infarction, unspecified (10/07/23) Subjective Subjective Patient is a 68-year-old lady who was admitted to the regular hospital followingepisodes of transient confusion with blurred vision and dysarthria. Stroke alert was called underwent subsequent evaluation Objective Data Objective Data Vital Signs: Vital Signs Temp Pulse Resp BP Pulse Ox O2 Del Method 98.2 F 62 16 112/72 94 Room Air 10/08/23 08:36 10/08/23 08:36 10/08/23 08:36 10/08/23 08:36 10/08/23 08:36 10/08/23 08:36 Oxygen Delivery Method Room Air Weight: 62.8 kg Body Mass Index (BMI) 21.0 Intake & Output: Intake and Output for Last 24 Hours 10/06/23 10/07/23 10/08/23 23:59 23:59 23:59 Intake Total 200 / 200 1000 / 1000 Balance 200 / 200 1000 / 1000 Lab / Micro Data 10/08/23 05:45 10/08/23 05:45 Labs: Laboratory Results - last 24 hr 10/07/23 12:37: WBC 6.4, RBC 3.91 L, Hgb 12.0, Hct 37.8, MCV 96.7, MCH 30.7, MCHC 31.7 L, RDW Std Deviation 48.8 H, RDW Coeff of Edita 13.6, Plt Count 153, MPV11.7, Immature Gran % (Auto) 0.200, Neut % (Auto) 41.7 L, Lymph % (Auto) 47.6 H,[place] % (Auto) 9.0, Eos % (Auto) 0.9, Baso % (Auto) 0.6, Absolute Neuts (auto) 2.7, Absolute Lymphs (auto) 3.02, Nucleated RBC % 0, PT 12.9, INR 1.0, APTT 28.7, Sodium 140, Potassium 4.4, Chloride 108 H, Carbon Dioxide 26.0, Anion Gap 6, BUN 27 H, Creatinine 1.17 H, Estim Creat Clear Calc 44.64, Est GFR (MDRD) Af Amer 59 L, Est GFR (MDRD) Non-Af 49 L, BUN/Creatinine Ratio 23.1 H, Glucose 137 H, Calcium 9.2, Magnesium 2.5, Troponin I High Sens 8 10/07/23 16:36: POC Glucose 97 10/07/23 20:59: POC Glucose 187 H 10/08/23 05:45: WBC 4.8, RBC 3.67 L, Hgb 11.1 L, Hct 34.8 L, MCV 94.8, MCH 30.2,MCHC 31.9 L, RDW Std Deviation 47.8 H, RDW Coeff of Edita 13.7, Plt Count 142 L, MPV 11.3, Immature Gran % (Auto) 0.400, Neut % (Auto) 41.9 L, Lymph % (Auto) 45.5 H, [place] % (Auto) 9.3, Eos % (Auto) 2.5, Baso % (Auto) 0.4, Absolute Neuts (auto) 2.0, Absolute Lymphs (auto) 2.16, Nucleated RBC % 0, Sodium 141, Potassium 4.2, Chloride 111 H, Carbon Dioxide 26.0, Anion Gap 4 L, BUN 21 H, Creatinine 0.86, Estim Creat Clear Calc 60.35, Est GFR (MDRD) Af Amer 84, Est GFR (MDRD) Non-Af 69, BUN/Creatinine Ratio 24.4 H, Glucose 122 H, Calcium 8.7, Total Bilirubin 0.30, AST 18, ALT 17, Alkaline Phosphatase 48, Total Protein 6.5, Albumin 3.3, Globulin 3.2, Albumin/Globulin Ratio 1.0 10/08/23 06:08: POC Glucose 119 H Radiography Diagnostic Testing: Radiology Impression Brain CT 10/07/23 12:37 IMPRESSION: Chronic involutional changes of the brain. Stable examination. N.B. : The above Results were Read Back by Yousif Elena MD to Dr Estephania DO, and understanding confirmed on 10/07/2023 12:53:48 (ET). Electronically Signed: Yousif Elena MD at 12:55 EST , ADDENDUM: 10/07/23 1302 IMPRESSION: Chronic involutional changes of the brain. Stable examination. N.B. : The above Results were Read Back by Yousif Elena MD to Dr Estephania DO, and understanding confirmed on 10/07/2023 12:53:48 (ET). Electronically Signed: Yousif Elena MD at 12:55 EST , Chest X-Ray 10/07/23 12:37 IMPRESSION: Normal x-ray examination of the chest. Electronically Signed: Yousif Elena MD at 14:14 EST , Head/Neck CTA 10/07/23 12:37 IMPRESSION: Plaque formation at the origin of the left and right internal carotid arteries causing less than 50% stenosis. Stable study. N.B. : The above Results were Read Back by Yousif Elena MD to David Best and understanding confirmed on 10/07/2023 13:09:24 (ET). Electronically Signed: Yousif Elena MD at 13:10 EST , ADDENDUM: 10/07/23 1317 IMPRESSION: Plaque formation at the origin of the left and right internal carotid arteries causing less than 50% stenosis. Stable study. N.B. : The above Results were Read Back by Yousif Elena MD to David Best and understanding confirmed on 10/07/2023 13:09:24 (ET). Electronically Signed: Yousif Elena MD at 13:10 EST , Physical Exam Narrative GENERAL: cooperative HEENT: Atraumatic; normocephalic EYES; Anicteric, Normal Conjunctiva NECK; supple, normal thyroid, RESPIRATORY: Diminished to auscultation CARDIOVASCULAR: Regular S1 S2, GI: soft, normoactive bowel sounds, : No Renal angle tenderness; EXTREMITIES: No edema, no clubbing, MUSCULOSKELETAL: no muscle wasting NEURO: Awake; right-sided hemiparesis SKIN: No Rash PSYCH; Flat affect Assessment & Plan Assessment/Plan (1) CVA (cerebral vascular accident): PLAN: Plan Patient is a 68-year-old lady who was admitted to the regular hospital followingepisodes of transient confusion with blurred vision and dysarthria. Stroke alert was called underwent subsequent evaluation 1. Recurrent right-sided weakness with spasticity ? Patient admitted to monitored bed currently being worked up for possible CVA. Was seen in consultation by neurology and EEG was recommended to be performed awaiting results. MRI was also ordered results pending 2. Remote CVA involving the left MCA ? With residual right-sided weakness. Patient remains on dual antiplatelet therapy in addition to statin therapy 3. Coronary artery disease ? Patient is on guideline directed medical therapy 4. Dyslipidemia -Patient is on statin therapy, continued at home dose 4. Hypertension - Blood pressure controlled, home medications continued with dose adjustment as needed 6. Chronic HFrEF/Hx ? Patient is on guideline directed medical therapy including spironolactone beta-blockers and Entresto 7. Ischemic Cardiomyopathy - s/p AICD, 8. Diabetes mellitus type II -patient's oral 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s held. Placed on long acting insulin, Accu-Cheks a.c. and at bedtime and covered with sliding scale insulin 9. Depression with anxiety ? Patient is on citalopram 10. GERD ? On PPI 11. DVT prophylaxis - On enoxaparin Time spent in the patient's overall evaluation,decision-making process, review of diagnostic data, adjustment of management, discussion with other providers, nursing nursing and ancillary staff involved in patient's care documentation, 50 Minutes Charges/Coding Visit Charges Inpatient E&M: 94342 [facility] Hosp 10/08/23 1241 <Electronically signed by Tony Mayer MD> Cosigner Signature (if applicable): CC: ~ Signed [facility] Work Phone: 1(513) 609-142811-16-2023 Discharge summary Author David Best [facility] October 07, 2023 4:57pm Note Date/Time October 07, 2023 1:03pm [facility] Medical Records Department [address] [place] [address] Emergency Department Summary 10/07/23 MR#: [id number] Acct: [id number] Name: MANSI CARO Rep #:[id number] : 1955 68 From: David Weller PCP: Dr. Adrienne Byers, DO Status:ADM ANGELIA Location: [place] [address] HPI History of Present Illness Chief Complaint: Stroke Alert Informant: patient, spouse/S.O. and SNF Narrative Narrative: Brought down from [facility]CU [facility] stroke alert starting 15 minutes prior to arrival at 12:15 PM. Patient reports right-sided weakness. History of stroke in the past. She was recently seen this past Wednesday for stroke work- up with similar presentation. Initial evaluation in [facility] had right arm drift, right leg drift hitting the bed. Patient on aspirin and Plavix. She is at TCU for recovery. After patient being sent for CT head and angiogram return to room for reevaluation discussion. 2008 similar presentation with large stroke with residual right leg spasticity that improved. Per spouse symptoms return this past Wednesday. Things were resolving. Today symptoms returned again. He statesexact same symptoms from 2008 and from Wednesday. She does have defibrillator, reporting from cardiomyopathy per spouse. Evaluation of her MRI on her last visit no new infarcts, she has a remote left MCA infarct. Prior similar symptoms: Yes PFSH PFS Medical History (Updated 10/07/23 @ 16:[address] David Best, ) Anxiety and depression AV node dysfunction Cardiac resynchronization therapy defibrillator (HEAD BELLHOP CAPTAIN-D) in place Cerebral palsy Congestive heart failure (CHF) Coronary artery disease Diabetes mellitus Former smoker Heart failure with reduced ejection fraction High cholesterol Hyperlipidemia Hypertension ICD (implantable cardioverter-defibrillator) in place Insomnia Ischemic cardiomyopathy Myocarditis Pacemaker PFO (patent foramen ovale) Presence of biventricular implantable cardioverter-defibrillator Restless legs Ulcer Home Medications citalopram 20 mg tablet 20 mg PO QHS depression 11/18/14 [History Last Taken 10/06/23] clonazepam 1 mg tablet 1 mg PO QHS anxiety 11/18/14 [History Last Taken 10/06/23] metformin 500 mg tablet 500 mg PO DAILY diabetes 11/18/14 [History Last Taken 10/07/23] multivitamin with folic acid 400 mcg tablet (Thera) 1 tab PO DAILY vitamin 11/18/14 [History Last Taken 10/07/23] trazodone 50 mg tablet 50 mg PO DAILY PRN Anxiety 11/18/14 [History Last Taken 10/06/23] clopidogrel 75 mg tablet 1 tab PO QHS anti platelet 05/18/16 [History Last Taken 10/06/23] empagliflozin 10 mg tablet (Jardiance) 10 mg PO DAILY diabetes 09/28/23 [History Last Taken 10/07/23] metoprolol succinate 25 mg tablet,extended release 24 hr 12.5 mg PO DAILY blood pressure 09/28/23 [History Last Taken 10/07/23] pantoprazole 40 mg tablet,delayed release 40 mg PO BID stomach acid 09/28/23 [History Last Taken 10/07/23] sacubitril-valsartan 0.5 tab PO BID HTN 09/28/23 [History Last Taken 10/07/23] cholecalciferol (vitamin D3) 25 mcg (1,000 unit) tablet 50 mcg (2 x 25 mcg (1,000 unit)) PO QHS supplement #0 tabs 09/30/23 [Rx Last Taken 10/06/23] aspirin 81 mg tablet,delayed release 81 mg PO DAILY heart 10/01/23 [History Last Taken 10/07/23] atorvastatin 40 mg tablet 40 mg PO QHS CHOLESTEROL 10/07/23 [History Last Taken 10/06/23] baclofen 10 mg tablet 10 mg PO BID MUSCLE SPASMS 10/07/23 [History Last Taken 10/07/23] enoxaparin 40 mg/0.4 mL subcutaneous syringe 40 mg subcut 0600 BLOOD THINNER 10/07/23 [History Last Taken 10/07/23] spironolactone 25 mg tablet 12.5 mg PO MOWEFR FLUID 10/07/23 [History Last Taken 10/06/23] Allergy/AdvReac Type Severity Reaction Status Date / Time No Known Allergies Allergy Verified 10/07/23 12:48 Family History (Updated 10/07/23 @ 14:[address] Jaci Greco MD) Father Heart disease Mother Anxiety and depression Suicide and self-inflicted injury from suicide age 52. Surgical History (Updated 10/07/23 @ 13:[address] Jaci Greco MD) History of cardiac defibrillator placement History of cholecystectomy History of coronary artery stent placement History of skin surgery S/P colon polypectomy Social History (Updated 10/07/23 @ 14:[address] Jaci Greco MD) household members: spouse Smoking Status: Former smoker how long ago did patient quit smokin-1.5 ppd from teen until quit in 2008. alcohol intake: never substance use type: does not use ROS ROS ED Constitutional Constitutional ED: Denies chills, fever(s) or sweats Eyes Eyes: Denies change in vision ENT ENT ED: Denies dysphagia or sore throat Cardiovascular Cardiovascular: Denies chest pain, leg edema, palpitations or racing heartbeat Respiratory/Chest Respiratory/Chest: Denies cough, dyspnea or dyspnea on exertion Gastrointestinal Gastrointestinal: Denies abdominal pain, diarrhea, nausea or vomiting Genitourinary Genitourinary ED: Denies dysuria, hematuria or urinary frequency Musculoskeletal Musculoskeletal: Denies back pain, extremity pain or neck pain Integumentary Denies rash or wounds Neurologic Neurologic: Reports paresthesias and weakness; Denies headache(s) EXAM Physical Exam Const Vital Signs: 10/07/23 12:35 10/07/23 12:46 10/07/23 12:50 Temperature 97.8 F Temperature Source Temporal Pulse Rate 46 L 46 L Respiratory Rate 16 16 Blood Pressure 140/87 H 140/87 H Blood Pressure Mean 104 104 Pulse Ox 94 Oxygen Delivery Method Room Air Room Air Room Air 10/07/23 12:56 10/07/23 13:07 10/07/23 13:30 Temperature Temperature Source Pulse Rate 85 69 63 Respiratory Rate 18 15 28 H Blood Pressure 157/79 H 126/98 H 126/98 H Blood Pressure Mean 105 107 107 Pulse Ox 96 95 96 Oxygen Delivery Method Room Air Room Air Room Air Positive well nourished and well developed General Appearance ED: well developed and NAD HEENT Reports moist mucous membranes normocephalic and atraumatic Eyes PERRL, EOMs intact bilaterally and conjunctivae normal General Eye ED: Yes normal appearance of both eyes Neck no lymphadenopathy and supple General: Negative for tenderness Chest Wall Chest: Negative for tenderness Resp normal respiratory effort and normal air movement Effort and Inspection: symmetric chest movement; Negative for respiratory distress Cardio regular rate, regular rhythm and no murmurs Peripheral Pulses: pulses 2+ throughout GI normal to inspection, nondistended, normoactive bowel sounds and non-tender Palpation: Negative for guarding or rebound tenderness present Back/Spine no CVA tenderness and no thoracic nor lumbar tenderness Extremity normal to inspection General Extremety ED: Negative for edema or tenderness General Extremity: Negative for edema Neuro oriented x3 Neuro Narrative: NIH of 5 with reevaluation in the room. Right arm drift, right leg drift hitting the bed. There is mild paresthesia right lower extremity. There is dysarthria, Sensorium / Orientation: awake and alert Skin no rashes or lesions noted and no wounds NIHSS NIHSS Initial: 1a Level of Consciousness: 0 1b LOC Questions (Score 2 if aphasic/stupor): 0 1c LOC Commands (Only score 1st attempt): 0 2 Best Gaze (If aphasic, use reflexive mvmts.): 0 3 Visual: 0 4 Facial Palsy: 0 5 Motor Arm Right (UN = amputation/fusion): 1 5 Motor Arm Left: 0 6 Motor Leg Right: 2 6 Motor Leg Left: 0 7 Limb ataxia (Only + if out of proportion): 0 8 Sensory (Aphasia/stupor=0 or 1, coma=2): 1 9 Best Language: 0 10 Dysarthria (mute, coma=2, intubated=UN): 1 11 Extinction and Inattention (only scored if +): 0 Total Score: 5 MDM MDM MDM Narrative Medical decision making narrative: Interventions / MDM: Differential diagnosis: CVA, seizure Diagnosis considered but do not suspect: N/A My EKG interpretation: Atrial sensed, ventricular paced rhythm at 69, no ST changes. Imaging independently reviewed and interpreted by myself: CT brain: No intracranial hemorrhage, chronic findings. External documents reviewed: N/A Test considered but not ordered:N/A ED course: Patient sent straight to CT from the hallway due to a stroke symptoms. After return, rechecked NIH was a 5. CT brain discussion radiology chronic findings with no acute findings. No intracranial hemorrhage. 1315: Stroke neurologist Dr. Alarcon evaluated in the room, also available on themonitor for discussion. Discussed her recurrent symptoms and negative MRI recently. He is more concerned of spasticity and noted the right side issues. He recommended antispasmodics for which she is on baclofen twice a day, spouse has been trying to get this increase. He recommended medications, he recommended EEG as inpatient for evaluation of seizures. No TNK recommended. CT angiogram negative for any LVO. Bedside swallow being performed by nursing, order for baclofen. We will plan on admitting for EEG. I spoke with hospitalist Dr. Greco for admission. Re-evaluation: stable Disposition discussed with patient/family/significant other: Patient and spouse Case discussed with consulting clinician: Stroke neurologist, hospitalist This note was generated with [employer] dictation software. It may contain incorrectwords, spelling, and punctuation that were not noted in checking the note beforesigning. Lab Data Attestation: I reviewed the patient's lab results. Labs: Laboratory Results - last 24 hr 10/07/23 12:37 WBC 6.4 RBC 3.91 L Hgb 12.0 Hct 37.8 MCV 96.7 MCH 30.7 MCHC 31.7 L RDW Std Deviation 48.8 H RDW Coeff of Edita 13.6 Plt Count 153 MPV 11.7 Immature Gran % (Auto) 0.200 Neut % (Auto) 41.7 L Lymph % (Auto) 47.6 H [place] % (Auto) 9.0 Eos % (Auto) 0.9 Baso % (Auto) 0.6 Absolute Neuts (auto) 2.7 Absolute Lymphs (auto) 3.02 Nucleated RBC % 0 PT 12.9 INR 1.0 APTT 28.7 Sodium 140 Potassium 4.4 Chloride 108 H Carbon Dioxide 26.0 Anion Gap 6 BUN 27 H Creatinine 1.17 H Estim Creat Clear Calc 44.64 Est GFR (MDRD) Af Amer 59 L Est GFR (MDRD) Non-Af 49 L BUN/Creatinine Ratio 23.1 H Glucose 137 H Calcium 9.2 Magnesium 2.5 Troponin I High Sens 8 Radiography Diagnostic Testing: Clinical Impression(s) from Imaging Studies Brain CT 10/07/23 12:37 IMPRESSION: Chronic involutional changes of the brain. Stable examination. N.B. : The above Results were Read Back by Yousif Elena MD to Dr Estephania DO, and understanding confirmed on 10/07/2023 12:53:48 (ET). Electronically Signed: Yousif Elena MD at 12:55 EST , ADDENDUM: 10/07/23 1302 IMPRESSION: Chronic involutional changes of the brain. Stable examination. N.B. : The above Results were Read Back by Yousif Elena MD to Dr Estephania DO, and understanding confirmed on 10/07/2023 12:53:48 (ET). Electronically Signed: Yousif Elena MD at 12:55 EST , Chest X-Ray 10/07/23 12:37 IMPRESSION: Normal x-ray examination of the chest. Electronically Signed: Yousif Elena MD at 14:14 EST , Head/Neck CTA 10/07/23 12:37 IMPRESSION: Plaque formation at the origin of the left and right internal carotid arteries causing less than 50% stenosis. Stable study. N.B. : The above Results were Read Back by Yousif Elena MD to David Best and understanding confirmed on 10/07/2023 13:09:24 (ET). Electronically Signed: Yousif Elena MD at 13:10 EST , ADDENDUM: 10/07/23 1317 IMPRESSION: Plaque formation at the origin of the left and right internal carotid arteries causing less than 50% stenosis. Stable study. N.B. : The above Results were Read Back by Yousif Elena MD to David Best and understanding confirmed on 10/07/2023 13:09:24 (ET). Electronically Signed: Yousif Elena MD at 13:10 EST , Critical Care Time Critical Care Time: Yes Critical care time (excluding procedures): 30-74 minutes, Discussing w/Patient &/or Family/[employer] Engineer, Discussing w/Consultants, Arranging Admission or Transfer, Performing Direct Patient Care at Bedside and - (30 minutes) Discharge Plan Dx/Rx/DC Orders Clinical Impression: Transient ischemic attack, Ischemic cardiomyopathy, PFO (patent foramen ovale) Disposition Disposition: Acute Care Hospital [facility] Discharge Date/Time: 10/07/23 15:06 What to do if you have Problems For any increased pain, shortness of breath, bleeding, nausea or vomiting, chestpain, or any unexpected problems, contact your Primary Care Provider. Call [facility] ([phone]) or report to the closest Emergency Room. Call 911 if necessary. 10/07/23 1657 <Electronically signed by David Weller> Cosigner Signature (if applicable): CC: Dr. Adrienne Byers DO ~ Signed [facility] Work Phone: [phone] 148-803711-16-2023 History and physical note Author Jaci Greco [facility] October 07, 2023 2:38pm Note Date/Time October 07, 2023 1:59pm [facility] Medical Records Department [address] [place] [address] H&P Exam - Hospitalist 10/07/23 1355 MR#: [id number] Acct: [id number] Name: MANSI CARO Rep #:[id number] : 1955 68 From: Jaci Greco MD PCP: Dr. Adrienne Byers DO Status:REG ER Location: ED HPI - General General Date of Admission: 10/07/23 Date of Service: 10/07/23 Chief Complaint: Recurrent stroke like symptoms. 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 with questionable remote history of PFO per record, Diabetes mellitus type II, CAD s/p PCI, HFrEF/Hx AV fredi dysfunction/Ischemic Cardiomyopathy s/p AICD, RLS, recent admission 09/28/23- 10/01/23 following admission for confusion/altered speech as well as dizziness and blurred vision with NIH stroke score 2 upon ED initial evaluation transition to TCU for rehab admitted for stroke work-up with unremarkable MRI maintain on aspirin and Plavix who now re-presents to the [facility] ED on 10/07/23 with history of stroke alert at approximately noon with dysarthria, mild right lower extremity paresthesias in addition to right-sided weakness with initial ED evaluation with right upper extremity and right lower extremity drift in addition to right lower extremity paresthesias and dysarthriaconcurrently with history of stroke in 2008 with a similar presentation with residual right leg spasticity although it supposedly improved and patient/ note not only of the similar to 2008 but similar to her recent presentation. Once patient reevaluated upon transition to ED room NIH stroke scale 5. NIHSS then by teleneurology was noted to be 3. Work-up in the ED included T97.8, heart rate initially 46 with most recent repeat 69, BP 140/87 with most recent repeat 126/98, respiratory rate 15, 95% on room air, CBC with WBC 6.4, hemoglobin 12, platelet 153 without marked shift, unremarkable coags, BMP with chloride 108, BUN/creatinine 27/1.17, glucose 137, troponin 8, CT the brain with chronic involutional changes, CTA head and neck with plaque formationat the origin of the left and right internal carotid arteries causing less than 50% stenosis similar to previous, EKG paced without acute evidence of ischemia. Stroke alert occurred and teleneurology was consulted with noted more concern for spasticity with recommendation for antispasmodics with increase of baclofen which is only twice daily with recommendation for also EEG to assure no seizure activity. In the ED patient administered baclofen 10 mg p.o. x1. [facility] Medical History (Updated 10/07/23 @ 14:[address] Jaci Greco MD) Anxiety and depression AV node dysfunction Cardiac resynchronization therapy defibrillator (HEAD BELLHOP CAPTAIN-D) in place Cerebral palsy Coronary artery disease Diabetes mellitus Former smoker Heart failure with reduced ejection fraction High cholesterol Hyperlipidemia Hypertension ICD (implantable cardioverter-defibrillator) in place Insomnia Ischemic cardiomyopathy Myocarditis PFO (patent foramen ovale) Presence of biventricular implantable cardioverter-defibrillator Restless legs Ulcer Home Medications citalopram 20 mg tablet 20 mg PO QHS depression 11/18/14 [History Last Taken 10/06/23] clonazepam 1 mg tablet 1 mg PO QHS anxiety 11/18/14 [History Last Taken 10/06/23] metformin 500 mg tablet 500 mg PO DAILY diabetes 11/18/14 [History Last Taken 10/07/23] multivitamin with folic acid 400 mcg tablet (Thera) 1 tab PO DAILY vitamin 11/18/14 [History Last Taken 10/07/23] trazodone 50 mg tablet 50 mg PO DAILY PRN Anxiety 11/18/14 [History Last Taken 10/06/23] clopidogrel 75 mg tablet 1 tab PO QHS anti platelet 05/18/16 [History Last Taken 10/06/23] empagliflozin 10 mg tablet (Jardiance) 10 mg PO DAILY diabetes 09/28/23 [History Last Taken 10/07/23] metoprolol succinate 25 mg tablet,extended release 24 hr 12.5 mg PO DAILY blood pressure 09/28/23 [History Last Taken 10/07/23] pantoprazole 40 mg tablet,delayed release 40 mg PO BID stomach acid 09/28/23 [History Last Taken 10/07/23] sacubitril-valsartan 0.5 tab PO BID HTN 09/28/23 [History Last Taken 10/07/23] cholecalciferol (vitamin D3) 25 mcg (1,000 unit) tablet 50 mcg (2 x 25 mcg (1,000 unit)) PO QHS supplement #0 tabs 09/30/23 [Rx Last Taken 10/06/23] aspirin 81 mg tablet,delayed release 81 mg PO DAILY heart 10/01/23 [History Last Taken 10/07/23] atorvastatin 40 mg tablet 40 mg PO QHS CHOLESTEROL 10/07/23 [History Last Taken 10/06/23] baclofen 10 mg tablet 10 mg PO BID MUSCLE SPASMS 10/07/23 [History Last Taken 10/07/23] enoxaparin 40 mg/0.4 mL subcutaneous syringe 40 mg subcut 0600 BLOOD THINNER 10/07/23 [History Last Taken 10/07/23] spironolactone 25 mg tablet 12.5 mg PO MOWEFR FLUID 10/07/23 [History Last Taken 10/06/23] Allergy/AdvReac Type Severity Reaction Status Date / Time No Known Allergies Allergy Verified 10/07/23 12:48 Family History (Updated 10/07/23 @ 14:[address] Jaci Greco MD) Father Heart disease Mother Anxiety and depression Suicide and self-inflicted injury from suicide age 52. Surgical History (Updated 10/07/23 @ 13:[address] Jaci Greco MD) History of cardiac defibrillator placement History of cholecystectomy History of coronary artery stent placement History of skin surgery S/P colon polypectomy Social History (Updated 10/07/23 @ 14:[address] Jaci Greco MD) household members: spouse Smoking Status: Former smoker how long ago did patient quit smokin-1.5 ppd from teen until quit in 2008. alcohol intake: never substance use type: does not use ROS ROS Narrative Admission Review of Systems: CONSTITUTIONAL: No weight loss, fever, chills, + weakness or fatigue. HEENT: + Vision blurring. Eyes: No visual loss, double vision or yellow sclerae. Ears, Nose, Throat: No hearing loss, sneezing, congestion, runny nose or sore throat. SKIN: No rash or itching, lesions, wounds. CARDIOVASCULAR: No chest pain, chest pressure or chest discomfort, palpitations,edema, orthopnea, syncopal events. RESPIRATORY: No shortness of breath, cough or sputum, wheezing, hemoptysis. GASTROINTESTINAL: No anorexia, nausea, vomiting or diarrhea, abdominal pain, melena, BRBPR. GENITOURINARY: No dysuria, frequency, urgency or retention. NEUROLOGICAL: + Dizziness, right lower extremity paresthesias, dysarthria, rightupper and lower extremity focal weakness. No headache, syncope, , change in bowel or bladder control, seizure. MUSCULOSKELETAL: + muscle, back pain, joint pain or stiffness. HEMATOLOGIC: No anemia. Easy bleeding/bruising. LYMPHATICS: No enlarged nodes. No history of splenectomy. PSYCHIATRIC: + history of depression or anxiety. ENDOCRINOLOGIC: No reports of sweating, cold or heat intolerance. No polyuria orpolydipsia. ALLERGIES: No history of asthma, hives, eczema or rhinitis. Vital Signs Vital Signs Vital Signs: 10/07/23 12:35 10/07/23 12:46 10/07/23 12:50 Temperature 97.8 F Temperature Source Temporal Pulse Rate 46 L 46 L Respiratory Rate 16 16 Blood Pressure 140/87 H 140/87 H Blood Pressure Mean 104 104 Pulse Ox 94 Oxygen Delivery Method Room Air Room Air Room Air 10/07/23 12:56 10/07/23 13:07 10/07/23 13:30 Temperature Temperature Source Pulse Rate 85 69 63 Respiratory Rate 18 15 28 H Blood Pressure 157/79 H 126/98 H 126/98 H Blood Pressure Mean 105 107 107 Pulse Ox 96 95 96 Oxygen Delivery Method Room Air Room Air Room Air Weight Weight: 139 lb 5.314 oz Body Mass Index (BMI) 21.2 Physical Exam Narrative Physical Examination: General: Awake, alert, oriented to self, place and events, remains cooperative, seated upright in bed in no apparent distress, notes she has been waxingand waning as far as spasms, still notes mild vision blurring, had resolved, nowafter she took baclofen. Skin: Normal color, normal turgor, no icterus, no cyanosis except occasional staged ecchymoses. HEENT: AT/NC, EOMI, PERRLA, dry MM, likely lower frontal dentition, questionableeye nystagmus, no carotid bruits or JVD noted. Lungs: CTA bilaterally, moderate effort, mild decrease BL bases, no rales, ronchi or wheezing. Heart: Paced; no gallop, rub audible. Abdomen: Soft, NTTP, ND, normal BS, no HSM. Extremities: No cyanosis, clubbing, or edema, currently muscles and the extremities are nice and soft with no spasms currently noted. Neurological: Patient awake, alert, oriented as noted, cognitive function appears improved, currently seems intact; pupils equally reactive to light and accommodation, cranial nerves grossly intact however appearance of eye nystagmus, moving all 4 extremities, R sided upper and lower drift noted, some difficulty with R sided HTS/FTN, no marked paresthesias currently otherwise L appropriate, equivocal babinski. Psychiatric: Affect appears flat, no acute evidence of depressive or anxiety feelings but does have underlying history. Results Lab / Micro Data 10/07/23 12:37 10/07/23 12:37 Labs: Laboratory Results - last 24 hr 10/07/23 12:37: WBC 6.4, RBC 3.91 L, Hgb 12.0, Hct 37.8, MCV 96.7, MCH 30.7, MCHC 31.7 L, RDW Std Deviation 48.8 H, RDW Coeff of Edita 13.6, Plt Count 153, MPV11.7, Immature Gran % (Auto) 0.200, Neut % (Auto) 41.7 L, Lymph % (Auto) 47.6 H,[place] % (Auto) 9.0, Eos % (Auto) 0.9, Baso % (Auto) 0.6, Absolute Neuts (auto) 2.7, Absolute Lymphs (auto) 3.02, Nucleated RBC % 0, PT 12.9, INR 1.0, APTT 28.7, Sodium 140, Potassium 4.4, Chloride 108 H, Carbon Dioxide 26.0, Anion Gap 6, BUN 27 H, Creatinine 1.17 H, Estim Creat Clear Calc 44.64, Est GFR (MDRD) Af Amer 59 L, Est GFR (MDRD) Non-Af 49 L, BUN/Creatinine Ratio 23.1 H, Glucose 137 H, Calcium 9.2, Troponin I High Sens [address] 10/07/23 12:37 IMPRESSION: Chronic involutional changes of the brain. Stable examination. N.B. : The above Results were Read Back by Yousif Elena MD to Dr Estephania DO, and understanding confirmed on 10/07/2023 12:53:48 (ET). Electronically Signed: Yousif Elena MD at 12:55 EST , ADDENDUM: 10/07/23 1302 IMPRESSION: Chronic involutional changes of the brain. Stable examination. N.B. : The above Results were Read Back by Yousif Elena MD to Dr Estephania DO, and understanding confirmed on 10/07/2023 12:53:48 (ET). Electronically Signed: Yousif Elena MD at 12:55 EST , Head/Neck CTA 10/07/23 12:37 IMPRESSION: Plaque formation at the origin of the left and right internal carotid arteries causing less than 50% stenosis. Stable study. N.B. : The above Results were Read Back by Yousif Elena MD to David Best and understanding confirmed on 10/07/2023 13:09:24 (ET). Electronically Signed: Yousif Elena MD at 13:10 EST , ADDENDUM: 10/07/23 1317 IMPRESSION: Plaque formation at the origin of the left and right internal carotid arteries causing less than 50% stenosis. Stable study. N.B. : The above Results were Read Back by Yousif Elena MD to David Best and understanding confirmed on 10/07/2023 13:09:24 (ET). 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 with questionable remote history of PFO per record, Diabetes mellitus type II, CAD s/p PCI, HFrEF/Hx AV fredi dysfunction/Ischemic Cardiomyopathy s/p AICD, RLS, recent admission 09/28/23- 10/01/23 following admission for confusion/altered speech as well as dizziness and blurred vision with NIH stroke score 2 upon ED initial evaluation transition to TCU for rehab admitted for stroke work-up with unremarkable MRI maintain on aspirin and Plavix who now re-presents to the [facility] ED on 10/07/23 with history of stroke alert at approximately noon with dysarthria, mild right lower extremity paresthesias in addition to right-sided weakness. #1. Recurrent right-sided weakness concerning for Acute Spasticity versus Possible Seizure activity, Neurology low suspicion for recurrent Acute CVA with History remote L MCA w/ residual RLE reported spasticity complicated by reported CP history: Will admit to PCU, per neurology recommendation we will increase antispasmodic baclofen dosing and frequency, will maintain on fall and aspiration precautions, will continue NIH stroke scale assessments to be cautious pending repeat MRI brain however will obtain with and without to be thorough, will request EEG and will continue PT/OT/Speech/Nutrition evaluation. Again neurology with low suspicion for recurrent stroke but recommends MRI to becautious therefore will maintain on permissive hypertensive regimen until MRI results noted, maintain on aspirin and Plavix as well as statin, recent assessment therefore will not repeat TSH (09/28/2023 TSH 2.94) but will obtain magnesium. We will also request hemoglobin A1c as this does not appear to have been performed recently. Once imaging and EEG is obtained would plan for repeat consultation with neurology at that time. Will have low dose PRN ativan for seizure activity. #2. Mild acute renal insufficiency with CKD stage II per GFR trending: Admission BUN/creatinine 27/1.17, per GFR trending patient appears to be CKD stage II primarily with GFR greater than 60 normally currently reduced, baselinecreatinine 0.9-1 primarily, we will very judiciously hydrate given history HFrEFand repeat CMP in AM. #3. Questionable chart reported history of PFO: 09/28/2023 echocardiogram with no evidence of diastolic dysfunction, EF 55%, chart reported previous negative bubble study however records also mention history of PFO with last echo prior tothis 05/19/2016 with EF 65%, stage I diastolic dysfunction, RVSP 20 mmHg with no appreciable change since 2007. #4. CAD: s/p PCI, will continue aspirin, Plavix, statin, temporary permissive hypertension as noted. #5. HFrEF/Hx AV fredi dysfunction/Ischemic Cardiomyopathy: s/p AICD, recent admission for similar strokelike symptoms with echocardiogram as noted above, will continue aspirin, Plavix, statin, temporally holding patient home spironolactone, Entresto, metoprolol for permissive hypertension with resumptiononce appropriate. Will judiciously hydrate given history. Recent AICD assessment 09/30/2023 without issue reported. #6. Diabetes mellitus type II: Hold oral home regimen, ADA diet, accu checks w/ISS. Hemoglobin A1c requested as from records does not appear recently performed. #7. Anxiety and depression: We will continue patient home clonazepam with hold for sedation and citalopram. #8. Hypertension: We will maintain temporary permissive hypertension pending MRI of the brain given acute presentation with parent agents per stroke protocol, add back regimen once appropriate. #9. Hyperlipidemia: We will continue patient on statin therapy, defer FLP repeat given recent stroke work-up. #10. Restless leg syndrome: Not on any specific chronic regimen however does use clonazepam nightly and baclofen twice daily however these are for spasticity. #11. GERD: We will continue patient home PPI. #12. DVT prophylaxis: Lovenox. #13. CODE status: Patient BLANCA is her who is present and living will is currently in place. Discussed CODE status at length including difference between FULL code, DNR-CCA and DNR-CC status. Following discussions about the differences in these status, requested Full Code status. Advanced Care Planning Face to Face Time: 16 minutes. Charges/Coding Visit Charges Inpatient E&M: 83118 Init Hosp L3 Procedures Hospitalists Procedures: 00628 Advncd Care Plan 30 Min 10/07/23 1438 <Electronically signed by Jaci Greco MD> Cosigner Signature (if applicable): CC: Dr. Jaci Greco MD; Dr. Adrienne Byers, DO~ Signed [facility] Work Phone: 1(164) 504-204511-12-2023 Progress note Author Alonso Estuardo [facility] October 03, 2023 1:49pm Note Date/Time October 03, 2023 10:38am [facility] Medical Records Department [address] [place] [address] Progress Note - Pharmacy 10/03/23 1035 MR#: [id number] Acct: [id number] Name: MANSI CARO Rep #:[id number] : 1955 68 From: Talat Cameron PCP: Dr. Adrienne Halko, DO Status:ADM IN Location: [place] [address] Documented by User: Talat Cameron 10/03/23 11:16 TCU RX Drug Regimen Review Subjective/Objective Subjective/Objective: Subjective: 68 year old female with below past medical history hospitalized for TIA, admitted to TCU with debility, here for rehabilitation, strengthening, prior to discharge home with . Objective: Allergies No Known Allergies Allergy (Verified 09/28/23 20:19) Current Medications Generic Name Dose Route Start Last Admin Trade Name Freq PRN Reason Stop Dose Admin Acetaminophen 1,000 mg 10/01/23 16:19 Acetaminophen 500 Mg Tablet PO Q6H PRN PRN Pain Score 1-10 Aspirin 81 mg 10/02/23 08:00 10/03/23 09:15 Aspirin E.C. 81 Mg Tablet PO 81 mg DAILYCM VERONA Administration Atorvastatin Calcium 40 mg 10/01/23 22:00 10/02/23 21:37 Atorvastatin Calcium 40 Mg Tablet PO 40 mg QHS VERONA Administration Baclofen 5 mg 10/01/23 22:00 10/03/23 09:14 Baclofen 10 Mg Tablet PO 5 mg BID VERONA Administration Calcium Carbonate 500 mg 10/01/23 15:51 Calcium Carbonate 500 Mg Tablet PO TIDCM PRN INDIGESTION Cholecalciferol 50 mcg 10/01/23 22:00 10/02/23 21:36 Cholecalciferol (Vit D3) 25 Mcg Tablet (1,000 Units) PO 50 mcg QHS VERONA Administration Citalopram Hydrobromide 20 mg 10/01/23 22:00 10/02/23 21:38 Citalopram 20 Mg Tablet PO 20 mg QHS VERONA Administration Clonazepam 1 mg 10/01/23 22:00 10/02/23 21:37 Clonazepam 1 Mg Tablet PO 1 mg QHS VERONA Administration Clopidogrel Bisulfate 75 mg 10/01/23 22:00 10/02/23 21:37 Clopidogrel Bisulfate 75 Mg Tablet PO 75 mg QHS VERONA Administration Empagliflozin 10 mg 10/02/23 10:00 10/03/23 09:14 Empagliflozin 10 Mg Tablet PO 10 mg DAILY VERONA Administration Enoxaparin Sodium 40 mg 10/02/23 06:00 10/03/23 05:51 Enoxaparin 40 Mg/0.4 Ml Syringe SC 40 mg DAILY@0600 VERONA Administration Magnesium Citrate 300 ml 10/01/23 16:19 Magnesium Citrate 300 Ml PO DAILY PRN Constipation Metformin HCl 500 mg 10/02/23 08:00 10/03/23 09:13 Metformin Hcl 500 Mg Tablet PO 500 mg DAILYCM VERNOA Administration Metoprolol Succinate 12.5 mg 10/02/23 10:00 10/03/23 09:15 Metoprolol(Xl)Succ 25 Mg Tablet PO 12.5 mg DAILY VERONA Administration Protocol Multivitamins 1 tablet 10/02/23 08:00 10/03/23 09:13 Multivitamins,Therapeutic Tablet PO 1 tablet DAILYCM VERONA Administration Multivitamins 1 cap 10/02/23 08:00 10/03/23 09:13 Vitamin B Comp W-C Capsule PO 1 cap DAILYCM [facility] Administration Nutritional Formula (Lactose Free) 120 ml 10/01/23 17:00 10/03/23 05:52 Glucerna Shake 120 Ml Liquid PO 120 ml 4X/DAY VERONA Administration Pantoprazole Sodium 40 mg 10/01/23 22:00 10/03/23 09:13 Pantoprazole Sodium 40 Mg Tablet PO 40 mg BID VERONA Administration Sacubitril/Valsartan 0.5 each 10/01/23 22:00 10/03/23 09:14 Sacubitril/Valsartan 24/26 Mg Tablet PO 0.5 each BID VERONA Administration Senna/Docusate Sodium 1 tablet 10/01/23 22:00 10/03/23 09:15 Senna/Docusate Sodium 1 Tablet PO 1 tablet BID VERONA Administration Spironolactone 12.5 mg 10/04/23 10:00 Spironolactone 25 Mg Tablet PO MOWEFR [facility] Tolterodine Tartrate 2 mg 10/01/23 15:17 Tolterodine Tartrate 2 Mg Cap.Sa PO DAILY PRN URINARY RETENTION Trazodone HCl 50 mg 10/01/23 15:17 10/02/23 21:38 Trazodone 50 Mg Tablet PO 50 mg DAILY PRN Administration ANXIETY Tuberculin PPD 0.1 ml 10/09/23 10:00 Tuberculin,Purif.Prot.Deriv. 50 Tu/Ml Vial ID 10/09/23 10:01 X1 ONE Problem List (Updated 10/01/23 @ 16:[address] Alonso Chi Estuardo, MD) Heart failure with reduced ejection fraction (Acute) Overactive bladder (Acute) Muscle spasm (Acute) GERD (gastroesophageal reflux disease) (Acute) Insomnia (Acute) Diabetes mellitus (Acute) Vitamin D deficiency (Acute) Anxiety (Acute) Depression (Acute) Transient ischemic attack (Acute) Debility (Acute) CVA (cerebral vascular accident) (Acute) HLD (hyperlipidemia) (Chronic) HTN (hypertension) (Chronic) Vital Signs Temp Pulse Resp BP Pulse Ox O2 Del Method 97.9 F 71 16 112/49 L 96 Room Air 10/03/23 09:11 10/03/23 09:15 10/03/23 09:11 10/03/23 09:11 10/03/23 09:11 10/03/23 09:11 Oxygen Delivery Method Room Air Weight: 61.099 kg Body Mass Index (BMI) 20.5 Sodium 140 mmol/L (136-145) 10/02/23 07:25 Potassium 3.7 mmol/L (3.5-5.1) 10/02/23 07:25 Chloride 110 mmol/L (98-107) H 10/02/23 07:25 Carbon Dioxide 28.0 mmol/L (21.0-32.0) 10/02/23 07:25 Anion Gap 2 (5-15) L 10/02/23 07:25 BUN 17 mg/dL (7-18) 10/02/23 07:25 Creatinine 0.96 mg/dL (0.55-1.02) 10/02/23 07:25 Est GFR (MDRD) Af Amer 73 mL/min (>60) 10/02/23 07:25 Est GFR (MDRD) Non-Af 61 mL/min (>60) 10/02/23 07:25 BUN/Creatinine Ratio 17.6 RATIO (10-20) 10/02/23 07:25 Glucose 154 mg/dL (74-106) H 10/02/23 07:25 Assessment/Plan: 1. Pain: acetaminophen 1000 mg PO Q6H PRN pain. The patient has not required anyPRN doses of acetaminophen so far this admission. Please continue to monitor pain scores, PRN medication usage, and LFTs (AST/ALT = 10/02 on 12/10/14). 2. Bowel: senna/docusate 1 tablet PO BID, magnesium citrate 300 mL PO daily PRN constipation. The patient has not required any PRN doses of magnesium citrate sofar this admission. The patient's last bowel movement was on 09/29/23. Please continue to monitor for bowel movements, PRN medication usage, diarrhea, and constipation. As the patient has not had a bowel movement in 4 days please consider administering magnesium citrate. 3. Stroke/Hyperlipidemia: aspirin 81 mg PO daily, clopidogrel 75 mg PO daily, atorvastatin 40 mg PO QHS. Please continue to monitor for s/s of stroke, for s/sof bleeding/excessive bruising, hemoglobin counts (Hgb = 11.8 g/dL on 10/02/23),platelet counts (PLT = 136 K/mm3 on 10/02/23), for GI distress with aspirin administration, for myopathies, LFTs (AST/ALT = 10/02 on 12/10/14), and lipid levels (cholesterol = 106 mg/dL with LDL = 36 mg/dL on 09/29/23). 4. DVT prophylaxis: enoxaparin 40 mg SC daily. Please continue to monitor for s/s of a DVT such as lower extremity erythema/pain/swelling, for s/s of bleeding/excessive bruising, hemoglobin counts (Hgb = 11.8 g/dL on 10/02/23), platelet counts (PLT = 136 K/mm3 on 10/02/23), and renal function (serum creatinine = 0.96 mg/dL with creatinine clearance ~ 53 mL/min on 10/02/23). 5. Heart failure reduced ejection fraction: empagliflozin 10 mg PO daily, metoprolol succinate 12.5 mg PO daily, sacubitril/valsartan 24-26 mg tablet 0.5 tabs PO BID, spironolactone 12.5 mg PO Mondays, Wednesdays and Fridays. Please continue to monitor for s/s of heart failure exacerbation including shortness ofbreath, lower extremity edema, weights (recent weights 60.3-61.9 kg appears stable), respiratory rates (recent range = 14-18 breaths/min), for s/s of UTI, renal function (eGFR = 61 mL/min on 10/02/23), for s/s of dehydration, for fatigue, heart rates (recent range = 60-71 beats/min), blood pressures (recent range = 111-162/49-73 mmHg), potassium levels (K = 3.7 mmol/L on 10/02/23), and for s/s of angioedema. 6. GERD: calcium carbonate 500 mg PO TID with meals PRN indigestion, pantoprazole 40 mg PO daily. The patient has not required any PRN doses of calcium carbonate so far this admission. Please continue to monitor for s/s of GERD, for diarrhea that could be associated with clostridium difficile infection, and for s/s of bone resorption issues such as fractures. 7. Diabetes Mellitus II: metformin 500 mg PO daily, empagliflozin 10 mg PO daily. Please continue to monitor blood glucose levels (recent range = 105-182 mg/dL), hemoglobin A1C (no recent hemoglobin A1C documented), vitamin B-12 levels (no recent vitamin B12 level documented), renal function (serum creatinine = 0.96 mg/dL with creatinine clearance ~ 53 mL/min and eGFR = 61 mL/min on 10/02/23), for s/s of urinary tract infection, and for s/s of lactic acidosis and DKA. Please consider order hemoglobin A1C levels and vitamin B-12 levels as the patient does not have these levels recently documented. 8. Overactive bladder: tolterodine 2 mg PO daily PRN bladder spasms. The patienthas not required any PRN doses of tolterodine so far this admission. Please continue to monitor for bladder spasms, PRN medication usage, for s/s of anticholinergic effects such as dry mouth, dry eyes, urinary retention, constipation and delirium, as well as for headache and dizziness. 9. Leg cramps/nutrition: vitamin B complex with vitamin C 1 PO daily, glucerna 120 mL PO 4 times per day, multivitamin 1 tablet PO daily with a meal. Please continue to monitor for leg cramps and nutritional status. 10. Muscle spasms: baclofen 5 mg PO BID. Please continue to monitor for muscle spasms, renal function (serum creatinine = 0.96 mg/dL with creatinine clearance ~ 53 mL/min on 10/02/23), for drowsiness, dizziness, nausea and vomiting. 11. Vitamin D deficiency: cholecalciferol 50 mcg PO QHS. Please continue to monitor for s/s of vitamin D deficiency and vitamin D levels (no recent vitamin D level documented). Please consider order a vitamin D level if clinically indicated. Assessment/Plan for indications treated with psychotropic medications: 1. Depression: citalopram 20 mg PO QHS. Please see provider note regarding stable chronic long-term use GDR not recommended. Please continue to monitor sodium levels (Na = 140 mmol/L on 10/02/23), for s/s of serotonin syndrome, for SI, nausea, dry mouth and sweating. 2. Anxiety: clonazepam 1 mg PO QHS. Please see provider note regarding stable chronic long-term use GDR not recommended. Please continue to monitor for dizziness, drowsiness, ataxia, and anxiety levels. 3. Insoma: trazodone 50 mg PO QHS prn insomnia. Please see provider note regarding stable chronic long-term use GDR not recommended. The patient has used2 dose of PRN trazodone so far this admission. Please continue to monitor for insomnia, for s/s of orthostasis, for s/s of serotonin syndrome and for nausea/vomiting and dry mouth. Medical chart and medication regimen reviewed. The following medication irregularities or issues were identified: 1. Diabetes Mellitus II: metformin 500 mg PO daily, empagliflozin 10 mg PO daily. Please consider order hemoglobin A1C levels and vitamin B-12 levels as the patient does not have these levels recently documented. 2. Vitamin D deficiency: cholecalciferol 50 mcg PO QHS. Please consider order a vitamin D level if clinically indicated. Date Date of Note:: 10/03/23 Documented by User: Dr. Alonso Marte MD 10/03/23 13:49 TCU RX Drug Regimen Review Provider Comments Provider responsibility Provider Comments to Recommendations by Pharmacy: Agree 10/03/23 1116 <Electronically signed by Talat Cameron> Talat Cameron Cosignaudi Signature (if applicable): 10/03/23 1349 <Electronically signed by Alonso Marte MD> CC: ~ Signed [facility] Work Phone: 1(114) 142-444611-10-2023 History and physical note Author Alonso Marte [facility] October 01, 2023 4:18pm Note Date/Time October 01, 2023 4:07pm [facility] Medical Records Department [address] [place] [address] History & Physical Exam 10/01/23 1558 MR#: [id number] Acct: [id number] Name: MANSI CARO Rep #:[id number] : 1955 68 From: Alonso Marte MD PCP: Dr. Adrienne Byers, DO Status:ADM IN Location: [place] [address] HPI - General General Date of Admission: 10/01/23 Date of Service: 10/01/23 Chief Complaint: Here for rehabilitation. HPI Narrative 09/28/2023 MANSI CARO, is a 68 Female who presents to [facility] Emergency Department with neurologic signs/symptoms. Presents with stroke like symptoms with , not acting right. Confused, dizziness, blurry vision, fragmented sentences, not making sense. Unable to walk, riding in wheelchair. NIHSS 2. CT brain negative, CTA head/neck negative, aspirin given. 09/28/2023 Admit to Hospital. Aspirin, Plavix, Statin, MRI brain for stroke. Vasotec IV as needed for elevated blood pressure, passed bedside swallow evaluation. 09/28/2023 Echo EF 55%. No diastolic dysfunction. No PFO. 09/29/2023 Carotid doppler ultrasound mild bilateral internal carotid artery stenosis. 09/30/2023 PT/OT. MRI negative for stroke. 10/01/2023 Admit to TCU with debility, here for rehabilitation, strengthening, prior to discharge home with . [facility] Medical History (Updated 10/01/23 @ 16:[address] Alonso Marte MD) Anxiety AV node dysfunction Cardiac resynchronization therapy defibrillator (HEAD BELLH[employer] CAPTAIN-D) in place Congestive heart failure (CHF) Coronary artery disease Diabetes mellitus Former smoker High cholesterol Hyperlipidemia Hypertension ICD (implantable cardioverter-defibrillator) in place Irregular heart beat Ischemic cardiomyopathy Myocarditis PFO (patent foramen ovale) Presence of biventricular implantable cardioverter-defibrillator Restless legs Ulcer Home Medications citalopram 20 mg tablet 20 mg PO QHS depression 11/18/14 [History Last Taken 09/30/23] clonazepam 1 mg tablet 1 mg PO QHS anxiety 11/18/14 [History Last Taken 09/30/23] metformin 500 mg tablet 500 mg PO DAILY diabetes 11/18/14 [History Last Taken 05/17/16 22:00] multivitamin with folic acid 400 mcg tablet (Thera) 1 tab PO DAILY vitamin 11/18/14 [History Last Taken 09/30/23] trazodone 50 mg tablet 50 mg PO DAILY PRN Anxiety 11/18/14 [History Last Taken Unknown] clopidogrel 75 mg tablet 1 tab PO QHS anti platelet 05/18/16 [History Last Taken 09/30/23] baclofen 5 mg tablet 5 mg PO Q12H SPASTICITY IN RIGHT LEG 09/28/23 [History Last Taken 10/01/23] empagliflozin 10 mg tablet (Jardiance) 10 mg PO DAILY diabetes 09/28/23 [History Last Taken 10/01/23] metoprolol succinate 25 mg tablet,extended release 24 hr 12.5 mg PO DAILY blood pressure 09/28/23 [History Last Taken 10/01/23] oxybutynin chloride 5 mg tablet,extended release 24 hr 5 mg PO DAILY PRN water retention 09/28/23 [History Last Taken 10/01/23] pantoprazole 40 mg tablet,delayed release 40 mg PO QHS stomach acid 09/28/23 [History Last Taken Unknown] rosuvastatin 20 mg tablet 20 mg PO QHS cholesterol 09/28/23 [History Last Taken 09/30/23] sacubitril-valsartan 0.5 tab PO BID HTN 09/28/23 [History Last Taken Unknown] spironolactone 0.5 tab PO MOWEFR EDEMA 09/28/23 [History Last Taken Unknown] vitamin Q06-ggwdw acid 1 tab PO DAILY vitamin 09/28/23 [History Last Taken Unknown] cholecalciferol (vitamin D3) 25 mcg (1,000 unit) tablet 50 mcg (2 x 25 mcg (1,000 unit)) PO QHS supplement #0 tabs 09/30/23 [Rx Last Taken 09/30/23] pantoprazole 40 mg tablet,delayed release 40 mg PO BID GERD #0 tabs 09/30/23 [Rx Last Taken 10/01/23] aspirin 81 mg tablet,delayed release 81 mg PO DAILY heart 10/01/23 [History Last Taken Unknown] Allergy/AdvReac Type Severity Reaction Status Date / Time No Known Allergies Allergy Verified 09/28/23 20:19 Surgical History (Updated 10/01/23 @ 16:[address] Alonso Marte MD) History of cardiac defibrillator placement History of cholecystectomy History of coronary artery stent placement Social History (Updated 10/01/23 @ 16:[address] Alonso Marte MD) household members: spouse Smoking Status: Former smoker alcohol intake: never substance use type: does not use ROS Constitutional Constitutional: Denies chills, fever(s) or weight gain ENT HEENT: Denies headache(s), nasal congestion or nasal discharge Cardiovascular Cardiovascular: Denies chest pain or palpitations Respiratory/Chest Respiratory/Chest: Denies cough, excessive phlegm production or shortness of breath with exertion Gastrointestinal Gastrointestinal: Denies abdominal pain, nausea or vomiting Genitourinary Genitourinary: Denies dysuria Musculoskeletal Musculoskeletal: Denies joint pain or joint swelling Integumentary Integumentary: Denies rash or wounds Neurologic Neurologic: Denies focal weakness, numbness or tingling Psychiatric Psychiatric: Denies anxiety, auditory hallucinations, depression, homicidal ideation or suicidal ideation Physical Exam Const alert General Appearance: cooperative HEENT normocephalic Eyes PERRL and EOMs intact bilaterally Neck supple, no JVD and no carotid bruits Resp normal respiratory effort, normal air movement and clear to auscultation bilaterally Cardio regular rate and regular rhythm GI normal to inspection, nondistended, normoactive bowel sounds, non-tender and non-distended Extremity normal capillary refill General Extremity: Negative for edema Skin no rashes or lesions noted General Skin Exam: no breakdown Neuro Neuro Narrative: Right lower extremity spastic hemiparesis. Psych affect normal Appearance: appropriate Assessment & Plan Assessment/Plan (1) Debility: (2) Transient ischemic attack: (3) CVA (cerebral vascular accident): (4) HTN (hypertension): (5) Depression: (6) Anxiety: (7) Vitamin D deficiency: (8) Diabetes mellitus: (9) HLD (hyperlipidemia): (10) Insomnia: (11) GERD (gastroesophageal reflux disease): (12) Muscle spasm: (13) Overactive bladder: (14) Heart failure with reduced ejection fraction: PLAN: Plan 68 year old female with below past medical history hospitalized for TIA, admitted to TCU with debility, here for rehabilitation, strengthening, prior to discharge home with . * Debility - PT/OT. * Cognition - ST. * Pain - Tylenol 1000mg q6 prn pain (1-10). * Bowel - senna/colace 1 tablet bid, Magnesium citrate 300ml daily prn. * Adult immunization - Administer pneumonia vaccine, covid vaccine, flu vaccine as appropriate. * DVT prophylaxis - Lovenox 40mg sc daily. * Stroke - Aspirin 81mg daily, Plavix 75mg daily. * Hyperlipidemia - Atorvastatin 40mg qhs. * Muscle spasm - Baclofen 5mg bid. * GERD - Pantoprazole 40mg bid, TUMS 500mg tidcm prn. * Vitamin D deficiency - D3 50mcg qhs. * Depression - Citalopram 20mg qhs, stable chronic long term care social worker use, GDR not recommended. * Anxiety - Clonazepam 1mg qhs, stable chronic longterm use, GDR not recommended. * Diabetes Mellitus II - Metformin 500mg daily, Jardiance 10mg daily. * Nutrition - Glucerna Shake 120ml 4x/day, MVI 1 tablet daily. * Heart failure reduced ejection fraction s/p resynchronization/defibrillator placement - Metoprolol succinate 12.5mg daily, Entresto 24/26mg 1/2 tablet bid, Aldactone 12.5mg MWF. * Overactive bladder - Tolterodine 2mg daily prn. * Insomnia - Trazodone 50mg qhs prn, stable chronic longterm use, GDR not recommended. * Leg cramp - Vitamin B complex 1 cap daily. 10/01/23 1618 <Electronically signed by Alonso Marte MD> Cosigner Signature (if applicable): CC: Dr. Adrienne Byers DO; Dr. Alonso Marte MD~ Signed [facility] Work Phone: 1(338) 961-442511-10-2023 Discharge summary Author Ben Johnson [facility] October 01, 2023 11:57am Note Date/Time October 01, 2023 11:57am [facility] Medical Records Department [address] [place] [address] Transfer to [facility] MR#: [id number] Acct: [id number] Name: MANSI CARO Rep #:[id number] : 1955 68 From: Ben Johnson DO PCP: Dr. Adrienne Byers, Status:ADM IN Certification of patient admission REQUIRED AT TIME OF ADMISSION. I CERTIFY THAT [facility] ARE REQUIRED TO BE GIVEN ON AN IN-PATIENT BASIS BECAUSE OF THE ABOVE NAMED PATIENT'S NEED FOR [facility] CARE ON A CONTINUING BASIS FOR THE CONDITION(S) FOR WHICH HE/SHE WAS RECEIVING IN-PATIENT HOSPITAL SERVICES PRIOR TO HIS/HER TRANSFER TO THE [facility]. 10/01/23 1157<Electronically signed by Ben Johnson DO> Diet Diet Order/Speech Therapy: 09/29/23 00:43 Diet: Consistent Carb - Calorie Controlled Dietary Modifications:: Cardiac / Heart Healthy Is pt able to select menu?: Yes How many daily calories?: 2000 calorie Therapies Weight Bearing: Full weight bearing Physical Therapy: Eval and Treat Occupational Therapy: Eval and Treat Speech Therapy: Eval and Treat Problem/Diagnosis (1) Cerebrovascular disease: Status: Acute Code(s): I67.9 - Cerebrovascular disease, unspecified Plan 1. Cerebrovascular disease with episode of confusion and speech difficulty-thisappears to be most likely from a TIA since there are no visible abnormalities which appear acute on the MRI. Patient will need to take aspirin and Plavix #2 essential hypertension-patient will remain on her metoprolol and Entresto #3 cardiomyopathy-patient is on Entresto #4 atherosclerotic heart disease-stable at this time, patient will remain on herpresent medications #5 chronic depression-patient will remain on Celexa #6 acute moderate protein and caloric malnutrition related to inadequate energy intake after oral surgery as evidenced by estimated p.o. intake meeting less than 75% of estimated energy needs more than 1 month and unintentional 12.1 pound weight loss x1 month-diet was adjusted to carbohydrate controlled cardiac,Glucerna 120 cc 4 times a day will be given with [employer] Total clinical time spent by myself addressing patient's medical issues, reviewing all of her data, and collaborating with patient's care team: 35-minutes Allergies/Procedures Done in Hospital Allergies No Known Allergies Allergy (Verified 09/28/23 20:19) Procedures: 2-D Echocardiogram Type of Care/Length of Stay Estimated LOS: Convalescent Care Less Than 30 days Type of Care Needed: Acute Rehab Rehab Potential: Good Prognosis: Good Additional Orders/Day of Discharge H&P will serve as current which was dated: 09/28/23 Day of Discharge: 10/01/23 Dietary and Speech Recommendations Dietitian Recommendations/Changes: will adjust diet to CHO controlled, cardiac and continue glucerna 120mL 4x/day w/ medpass given evidence of malnutrition Speech Linguistic Eval Summary: 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 Hx of word finding difficulty after CVA in 2008 - this CVA forced the patient to retire per patient report. Patient's present, he manages all finances and medications. He reports the patient's language function appears to be close to her baseline, but she is requiring more repetition. He is concerned for difficulty hearing vs. difficulty understanding. Per , patient is farsighted in [place] eye and nearsighted in L eye. Orientation: Fully oriented to self, age, , address, place, and full date. Reoriented patient to time as she read analog clock wrong. Auditory Comprehension: Yes/no questions (basic) - 5/5 acc. Yes/no questions (moderate) - 5/5 acc. 2-step directions - 4/5 acc. Multistep directions (3-5 steps) - 1/3 acc. Verbal Expression: Repetition of words - 10/10 acc. Confrontation naming of objects - 10/10 acc. Divergent naming (concrete) - 13 items in 60 sec. Divergentnaming (abstract) - 5 items in 60 sec. In 1-minute conversational sample, patient demonstrated mean length of 9.0 words per utterance. Pt's speech was 100% intelligible. Social Interaction: Good topic maintenance. Pt appropriately responded in all conversation exchanges. 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 Will plan for further assessment of comprehension, problem solving, and visual spatial skills. Will recommend speech therapy during acute stay 3-5X/week. Will recommend continued speech therapy at next level of care, which the patient reports may be inpatient rehab at [facility]. Discharge Plan Admission Admit Date/Time: 09/28/23 22:22 Primary Reason for Your Visit: TIA Attending Provider: Ben Johnson Primary Care Provider: Adrienne Byers Consulting Providers: Tony Corona Instructions Additional Instructions / Restrictions: Follow-up with your family practitioner in 2 to 3 weeks Discharge Orders/Prescriptions Prescriptions: New pantoprazole 40 mg Tablet,Delayed Release (Dr/Ec) 40 mg PO BID Qty: 0 0RF cholecalciferol (vitamin D3) 25 mcg (1,000 unit) Tablet 50 mcg PO QHS Qty: 0 0RF Continued metformin 500 MG tablet 500 mg PO DAILY trazodone 50 MG tablet 50 mg PO DAILY PRN (Reason: Anxiety) Patient Comments: mood/depression clonazepam 1 MG tablet 1 mg PO QHS Patient Comments: anxiety citalopram 20 MG tablet 20 mg PO QHS Patient Comments: depression multivitamin with folic acid [Thera] 1 TABLET tablet 1 tab PO DAILY Patient Comments: vitamin clopidogrel 75 MG tablet 1 tab PO QHS Patient Comments: ANTIPLATLET baclofen 5 mg tablet 5 mg PO Q12H sacubitril-valsartan [Entresto] 0.5 tab PO BID Jardiance 10 mg tablet 10 mg PO DAILY Patient Comments: TAKE 1 TABLET BY MOUTH EVERY DAY IN THE MORNING metoprolol succinate 25 mg tablet extended release 24 hr 12.5 mg PO DAILY Patient Comments: TAKE 0.5 TABLETS EVERY DAY-DO NOT CRUSH OR CHEW rosuvastatin 20 mg tablet 20 mg PO QHS spironolactone [Aldactone] 0.5 tab PO MOWEFR oxybutynin chloride 5 mg tablet extended release 24hr 5 mg PO DAILY PRN (Reason: water retention) Patient Comments: TAKING NEEDED vitamin S18-xlfcr acid 1 tab PO DAILY pantoprazole 40 MG tablet 40 mg PO QHS Patient Comments: decrease stomach acid- pt states she takes prn Changed aspirin 81 mg tablet,delayed release (DR/EC) 81 mg PO 1XD Qty: 1 0RF Patient Comments: TAKE 1 TABLET BY MOUTH EVERY OTHER DAY Referrals / Follow Up: Lary Wheat DO [Non-Staff] - Adrienne Byers DO [Primary Care Provider] - Disposition Disposition (needs filled in before D/C Order can be placed): Home, Self Care 10/01/23 9867 <Electronically signed by Ben Johnson DO> Cosigner Signature (if applicable): CC: Dr. Tony Corona DO; Dr. Adrienne Byers DO ~ [facility] Work Phone: 1(964) 284-321311-09-2023 Progress note Author Ben Johnson [facility] September 30, 2023 5:30pm Note Date/Time September 30, 2023 5 :30pm [facility] Medical Records Department [address] [place] [address] Progress Note - Hospitalist 09/30/23 1726 MR#: [id number] Acct: [id number] Name: MANSI CARO Rep #:[id number] : 1955 68 From: Ben Johnson DO PCP: Dr. Adrienne Byers DO Status:ADM IN Location: [place] [address] Reason for Visit Reason for Visit: Diagnoses Cerebral infarction, unspecified (09/28/23) Cerebrovascular disease, unspecified (09/28/23) Subjective Subjective Patient was seen and examined today, patient's echocardiogram did not show PFO, her MRI did not show an acute stroke. I went over these findings with the patient and the patient's . Patient's wishes the patient to go to an extended care facility for inpatient rehab services, we are needing pre-CERT for this to happen. Objective Data Objective Data Vital Signs: Vital Signs Temp Pulse Resp BP Pulse Ox O2 Del Method 98.0 F 61 14 136/64 H 100 Room Air 09/30/23 16:12 09/30/23 16:12 09/30/23 16:12 09/30/23 16:12 09/30/23 16:12 09/30/23 16:12 Oxygen Delivery Method Room Air Weight: 60.3 kg Body Mass Index (BMI) 20.8 Intake & Output: Intake and Output for Last 24 Hours 09/28/23 09/29/23 09/30/23 23:59 23:59 23:59 Intake Total 1000 / 1150 2265.83 / 2415.83 1188.33 / 1188.33 Output Total 830 / 1230 450 / 450 Balance 1000 / 920 1435.83 / 1185.83 738.33 / 738.33 Medical Nutrition Assessment Dietitian: Malnutrition Criteria Met Start: 09/29/23 14:29 Freq: Status: Active Protocol: Document 09/29/23 14:29 AG (Rec: 09/29/23 14:29 AG [id number]) Nutrition Malnutrition Evidence of Malnutrition Exists Yes Malnutrition (moderate): Acute Illness/Injury Evidenced By Suboptimal Energy Intake ( Moderate),Weight Loss (Severe) Clinical Problem Acute Disease or Injury Related Malnutrition Etiology moderate, acute malnutrition related to inadequate energy intake after oral surgery Signs/Symptoms as evidenced by estimated PO Intake meeting <75% of estimated energy needs > 1 month; unintentional 12.1#/8% wt loss x ~1 month Status Active Problem Recommendation Dietitian Recommendations/Changes will adjust diet to CHO controlled, cardiac and continue glucerna 120mL 4x/day w/ medpass given evidence of malnutrition Lab / Micro Data 09/28/23 20:10 09/28/23 20:10 Labs: Laboratory Results - last 24 hr 09/29/23 21:48: POC Glucose 112 H 09/30/23 06:45: POC Glucose 108 H 09/30/23 11:13: POC Glucose 114 H Radiography Diagnostic Testing: Radiology Impression Carotid Duplex 09/28/23 22:33 Interpretation Summary Mild (<50%) stenosis right extracranial internal carotid. Mild (<50%) stenosis left extracranial internal carotid. Patent and antegrade vertebrals bilaterally. Ordering Physician: Tony Corona Referring Physician: Adrienne Byers Performed By: Estefany Ovalle RVT Brain MRI 09/30/23 09:00 IMPRESSION: No evidence for acute infarct. Chronic cerebral infarcts. Chronic involutional and white matter changes. Electronically Signed: Vida Nails MD at 10:41 EST , Physical Exam Narrative alert, oriented x3, no apparent distress and average body habitus Constitutional Narrative: Patient appears older than her stated age General Appearance: cooperative, well kempt and well developed Orientation / Consciousness: awake, oriented to person, oriented to place and oriented to time HEENT normocephalic, head/scalp atraumatic and moist oral mucous membranes Eyes PERRL, EOMs intact bilaterally and conjunctivae normal Neck supple, no JVD, thyroid normal and no carotid bruits General: trachea midline Resp normal respiratory effort, no retractions, no use of accessory muscles and clearto auscultation bilaterally Auscultation: Negative for rales, rhonchi or wheezes Cardio regular rate, regular rhythm, S1 normal heart sound, S2 normal heart sound, no murmurs, no rub and no gallops GI normal to inspection, nondistended, normoactive bowel sounds, soft to palpation,non-tender and non-distended Extremity no clubbing, cyanosis or edema Skin no rashes or lesions noted General Skin Exam: no breakdown Neuro oriented x3, CN's II-XII intact bilaterally, moves all extremities and no sensory deficits noted Sensorium / Orientation: awake and alert Speech: speech normal Psych affect normal Assessment & Plan Assessment/Plan (1) Cerebrovascular disease: PLAN: Plan 1. Cerebrovascular disease with episode of confusion and speech difficulty-thisappears to be most likely from a TIA since there are no visible abnormalities which appear acute on the MRI. Patient will need to take aspirin and Plavix #2 essential hypertension-patient will remain on her metoprolol and Entresto #3 cardiomyopathy-patient is on Entresto #4 atherosclerotic heart disease-stable at this time, patient will remain on herpresent medications #5 chronic depression-patient will remain on Celexa #6 acute moderate protein and caloric malnutrition related to inadequate energy intake after oral surgery as evidenced by estimated p.o. intake meeting less than 75% of estimated energy needs more than 1 month and unintentional 12.1 pound weight loss x1 month-diet was adjusted to carbohydrate controlled cardiac,Glucerna 120 cc 4 times a day will be given with [employer] Total clinical time spent by myself addressing patient's medical issues, reviewing all of her data, and collaborating with patient's care team: 35-minutes Charges/Coding Visit Charges Inpatient E&M: 60298 Subs Hosp L2 09/30/23 7540 <Electronically signed by Ben Johnson DO> Cosigner Signature (if applicable): CC: ~ Signed [facility] Work Phone: 1(220) 131-340511-09-2023 Discharge summary Author Ben Johnson [facility] September 30, 2023 11:55am Note Date/Time September 30, 2023 1 1:52am [facility] Medical Records Department [address] [place] [address] Instructions for Home/Discharge Instructions 09/30/23 1151 MR#: [id number] Acct: [id number] Name: MANSI CARO Rep #:[id number] : 1955 68 From: Ben Johnson DO PCP: Dr. Adrienne Byers DO Status:ADM IN Discharge Instructions Diet Discharge Diet: 1800 Calorie Control Diet Activity Discharge Activity: Return to Normal Activity Weight Bearing Status: Full weight bearing Follow Up Care Test Results: Test results from this visit will be discussed in further detail at your follow- up appointment, if applicable. Discharge Plan Admission Admit Date/Time: 09/28/23 22:22 Primary Reason for Your Visit: TIA Attending Provider: Ben Johnson Primary Care Provider: Adrienne Byers Consulting Providers: Tony Corona Instructions Additional Instructions / Restrictions: Follow-up with your family practitioner in 2 to 3 weeks Discharge Orders/Prescriptions Prescriptions: New pantoprazole 40 mg Tablet,Delayed Release (Dr/Ec) 40 mg PO BID Qty: 0 0RF cholecalciferol (vitamin D3) 25 mcg (1,000 unit) Tablet 50 mcg PO QHS Qty: 0 0RF Continued metformin 500 MG tablet 500 mg PO DAILY trazodone 50 MG tablet 50 mg PO DAILY PRN (Reason: Anxiety) Patient Comments: mood/depression clonazepam 1 MG tablet 1 mg PO QHS Patient Comments: anxiety citalopram 20 MG tablet 20 mg PO QHS Patient Comments: depression multivitamin with folic acid [Thera] 1 TABLET tablet 1 tab PO DAILY Patient Comments: vitamin clopidogrel 75 MG tablet 1 tab PO QHS Patient Comments: ANTIPLATLET baclofen 5 mg tablet 5 mg PO Q12H sacubitril-valsartan [Entresto] 0.5 tab PO BID Jardiance 10 mg tablet 10 mg PO DAILY Patient Comments: TAKE 1 TABLET BY MOUTH EVERY DAY IN THE MORNING metoprolol succinate 25 mg tablet extended release 24 hr 12.5 mg PO DAILY Patient Comments: TAKE 0.5 TABLETS EVERY DAY-DO NOT CRUSH OR CHEW rosuvastatin 20 mg tablet 20 mg PO QHS spironolactone [Aldactone] 0.5 tab PO MOWEFR oxybutynin chloride 5 mg tablet extended release 24hr 5 mg PO DAILY PRN (Reason: water retention) Patient Comments: TAKING NEEDED vitamin [id number]-[id number] acid 1 tab PO DAILY pantoprazole 40 MG tablet 40 mg PO QHS Patient Comments: decrease stomach acid- pt states she takes prn Changed aspirin 81 mg tablet,delayed release (DR/EC) 81 mg PO 1XD Qty: 1 0RF Patient Comments: TAKE 1 TABLET BY MOUTH EVERY OTHER DAY Referrals / Follow Up: Lary Wheat DO [Non-Staff] - Adrienne Byers DO [Primary Care Provider] - Disposition Disposition (needs filled in before D/C Order can be placed): Home, Self Care 09/30/23 1155<Electronically signed by Ben Johnson DO>Ben Johnson DO CC: Dr. Tony Corona DO; Dr. Adrienne Byers DO ~ Signed [facility] Work Phone: 1(705) 159-550211-08-2023 Progress note [facility] September 29, 2023 5:39pm Note Date/Time September 29, 2023 5 :25pm [facility] Medical Records Department [address] [place] [address] Progress Note - Hospitalist 09/29/23 1717 MR#: [id number] Acct: [id number] Name: MANSI CARO Rep #:[id number] : 1955 68 From: Ben Johnson DO PCP: Dr. Adrienne Byers DO Status:ADM IN Location: [address] 1 Reason for Visit Reason for Visit: Diagnoses Cerebral infarction, unspecified (09/28/23) Subjective Subjective Patient was seen and examined today, I had a long conversation with the patient and her who was in the room at the time of my examination. She came to the ER yesterday after being brought in by her , he stated that she appeared to be confused and she complained of dizziness and blurred vision. Today her states that she is back to her baseline, patient has a historyof a stroke approximately a year ago with residual neurological deficits in the right lower extremity. Patient is currently on Plavix and aspirin as an outpatient. Patient underwent an echocardiogram today which showed a normal ejection fraction and no evidence of a patent foramen ovale. At the time of this dictation, her MRI has not been performed, she does have a pacemaker which is MRI compatible according to her , MRI and will have to check to see if this is correct. Objective Data Objective Data Vital Signs: Vital Signs Temp Pulse Resp BP Pulse Ox O2 Del Method 97.6 F L 70 14 112/56 L 98 Room Air 09/29/23 11:25 09/29/23 11:25 09/29/23 11:25 09/29/23 11:25 09/29/23 11:25 09/29/23 11:25 Oxygen Delivery Method Room Air Weight: 60.3 kg Body Mass Index (BMI) 20.8 Intake & Output: Intake and Output for Last 24 Hours 09/27/23 09/28/23 09/29/23 23:59 23:59 23:59 Intake Total 1000 / 1150 870 / 870 Output Total 830 / 830 Balance 1000 / 920 40 / 40 Medical Nutrition Assessment Dietitian: Malnutrition Criteria Met Start: 09/29/23 14:29 Freq: Status: Active Protocol: Document 09/29/23 14:29 (Rec: 09/29/23 14:29 [id number]) Nutrition Malnutrition Evidence of Malnutrition Exists Yes Malnutrition (moderate): Acute Illness/Injury Evidenced By Suboptimal Energy Intake ( Moderate),Weight Loss (Severe) Clinical Problem Acute Disease or Injury Related Malnutrition Etiology moderate, acute malnutrition related to inadequate energy intake after oral surgery Signs/Symptoms as evidenced by estimated PO Intake meeting <75% of estimated energy needs > 1 month; unintentional 12.1#/8% wt loss x ~1 month Status Active Problem Recommendation Dietitian Recommendations/Changes will adjust diet to CHO controlled, cardiac and continue glucerna 120mL 4x/day w/ medpass given evidence of malnutrition Lab / Micro Data 09/28/23 20:10 09/28/23 20:10 Labs: Laboratory Results - last 24 hr 09/28/23 20:10: WBC 7.3, RBC 4.14 L, Hgb 12.5, Hct 39.6, MCV 95.7, MCH 30.2, MCHC 31.6 L, RDW Std Deviation 47.4 H, RDW Coeff of Edita 13.3, Plt Count 157, MPV11.1, Immature Gran % (Auto) 0.300, Neut % (Auto) 40.8 L, Lymph % (Auto) 49.7 H,[place] % (Auto) 7.6, Eos % (Auto) 1.0, Baso % (Auto) 0.6, Absolute Neuts (auto) 3.0, Absolute Lymphs (auto) 3.61, Nucleated RBC % 0, PT 12.7, INR 1.0, APTT 24.8, Sodium 140, Potassium 3.9, Chloride 106, Carbon Dioxide 28.0, Anion Gap 6,BUN 27 H, Creatinine 1.10 H, Estim Creat Clear Calc 46.28, Est GFR (MDRD) Af Amer 63, Est GFR (MDRD) Non-Af 52 L, BUN/Creatinine Ratio 24.5 H, Glucose 159 H,Calcium 9.7, Troponin I High Sens 7, TSH 2.94 09/28/23 21:00: Urine Color Yellow, Urine Clarity Clear, Urine pH 8.0, Ur Specific [place] 1.010, Urine Protein Negative, Urine Glucose (UA) 1000 H, UrineKetones Negative, Urine Occult Blood Negative, Urine Nitrite Negative, Urine Bilirubin Negative, Urine Urobilinogen Normal, Ur Leukocyte Esterase 25 H, UrineRBC 0 SEEN, Urine WBC 0 SEEN, Ur Squamous Epith Cells 0 SEEN, Urine Bacteria 0 SEEN, Urine Mucus 0 SEEN 09/29/23 05:55: Triglycerides 145, Cholesterol 106, LDL Cholesterol 36, VLDL Cholesterol 29, HDL Cholesterol 41 09/29/23 06:27: POC Glucose 111 H 09/29/23 11:18: POC Glucose 170 H 09/29/23 16:31: POC Glucose 151 H Radiography Diagnostic Testing: Radiology Impression Brain CT 09/28/23 20:12 IMPRESSION: 1. Stable exam, extensive area of encephalomalacic area involving the LEFT hemisphere involving LEFT parietal and temporal lobes consistent with remote LEFT MCA infarct. 2. 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 3. No intracranial mass, hemorrhage or acute territorial infarct. 4. No radiographically significant sinus disease. N.B. : The above Results were Read Back by Jasper Ochoa MD to Uday Orosco DO, and understanding confirmed on 09/28/2023 20:30:45 (ET). Electronically Signed: Jasper Ochoa MD at 20:31 EST , ADDENDUM: 09/28/232037 IMPRESSION: 1. Stable exam, extensive area of encephalomalacic area involving the LEFT hemisphere involving LEFT parietal and temporal lobes consistent with remote LEFT MCA infarct. 2. 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 3. No intracranial mass, hemorrhage or acute territorial infarct. 4. No radiographically significant sinus disease. N.B. : The above Results were Read Back by Jasper Ochoa MD to Uday Orosco DO, and understanding confirmed on 09/28/2023 20:30:45 (ET). Electronically Signed: Jasper Ochoa MD at 20:31 EST , Head/Neck CTA 09/28/23 20:12 IMPRESSION: 1. Diffuse vascular calcifications throughout the cavernous carotid and supra clinoid carotid vessels bilaterally without stenosis or occlusion. Moderate calcifications involving the V4 segment of the RIGHT vertebral artery. 2. No evidence focal stenosis occlusion filling defects or LVO involving the intracranial circulation. 3. Moderate calcifications involving the carotid bulbs bilaterally consistent with mild (less than 50%) narrowing. No hemodynamically significant stenosis in the cervical carotid or vertebral circulation bilaterally. Electronically Signed: Jasper Ochoa MD at 20:50 EST , Chest X-Ray 09/28/23 20:15 IMPRESSION: 1. Interval placement of transvenous pacer/AICD system projecting in normal position. 2. No pneumothorax. 3. No evidence of acute cardiopulmonary process. 4. Chronic interstitial changes and pleural thickening in the RIGHT infrahilar region. No acute infiltrate. Electronically Signed: Jasper Ochoa MD at 21:05 EST , Echocardiogram 09/28/23 22:33 Interpretation Summary No evidence for diastolic dysfunction. The estimated ejection fraction is 55 %. Ordering Physician: Tony Corona Referring Physician: Adrienne Hatfield Performed By: Florina Baig, RDCS, RVT Physical Exam Const alert, oriented x3, no apparent distress and average body habitus Constitutional Narrative: Patient appears older than her stated age General Appearance: cooperative, well kempt and well developed Orientation / Consciousness: awake, oriented to person, oriented to place and oriented to time HEENT normocephalic, head/scalp atraumatic and moist oral mucous membranes Eyes PERRL, EOMs intact bilaterally and conjunctivae normal Neck supple, no JVD, thyroid normal and no carotid bruits General: trachea midline Resp normal respiratory effort, no retractions, no use of accessory muscles and clearto auscultation bilaterally Auscultation: Negative for rales, rhonchi or wheezes Cardio regular rate, regular rhythm, S1 normal heart sound, S2 normal heart sound, no murmurs, no rub and no gallops GI normal to inspection, nondistended, normoactive bowel sounds, soft to palpation,non-tender and non-distended Extremity no clubbing, cyanosis or edema Skin no rashes or lesions noted General Skin Exam: no breakdown Neuro oriented x3, CN's II-XII intact bilaterally, moves all extremities and no sensory deficits noted Sensorium / Orientation: awake and alert Speech: speech normal Psych affect normal Assessment & Plan Assessment/Plan (1) Cerebrovascular disease: PLAN: Plan 1. Cerebrovascular disease with episode of confusion and speech difficulty- patient will undergo an MRI today, she will be seen by PT and OT, she will remain on her present medications #2 essential hypertension-patient will remain on her metoprolol and Entresto #3 cardiomyopathy-patient is on Entresto #4 atherosclerotic heart disease-stable at this time, patient will remain on herpresent medications #5 chronic depression-patient will remain on Celexa Total clinical time spent by myself addressing patient's medical issues, reviewing all of her data, and collaborating with patient's care team: 35-minute Charges/Coding Visit Charges Inpatient E&M: 32742 Subs Hosp L2 09/29/23 1739 <Electronically signed by Ben Johnson DO> Cosigner Signature (if applicable): CC: ~ Signed [facility] Work Phone: 1(592) 641-484111-08-2023 History and physical note Author Tony Mejia [facility] September 29, 2023 7:10am Note Date/Time September 28, 2023 1 0:22pm [facility] Medical Records Department [address] [place] [id number] H&P Exam - Hospitalist 09/28/23 2210 MR#: [id number] Acct: [id number] Name: MANSI CARO Rep #:[id number] : 1955 68 From: Tony Williamson DO PCP: Dr. Adrienne Byers DO Status:ADM IN Location: [place] [address] HPI - General General Date of Admission: 09/28/23 Date of Service: 09/28/23 Chief Complaint: Fragmented sentences and confusion HPI Narrative MANSI CARO, is a 68 F with a past medical history of essential hypertension, hyperlipidemia, remote history of patent foramen ovale, history of CVA in 2009, recent history of a CVA 1 year ago with residual deficit causing spastic right lower extremity; on Plavix, history of coronary artery disease status post stentplacement, diabetes mellitus type 2 of unknown control, history of myocarditis, history of cardiac resynchronization therapy defibrillator in place, depression and osteoarthritis who presents to [facility] ER complaining of strokelike symptoms with fragmented sentences and confusion. Mrs. Caro is accompanied to the ER by her beloved who is helped augment the history and he reports that she was fine all day after eating breakfast and they went out to vote and then at approximately 4 PM she abruptly became confused and was not acting right. She complained of not feeling right and immediately beganto talk in fragmented sentences and was not making sense plus she resisted his initial suggestions to come to the ER but she finally relented and he brought her in via private vehicle. Upon arrival to the ER she was unable to walk and her speech was abnormal according to the ER records. She initially admitted to some numbness in her right lower extremity but now she is improving with a resolving mild residual expressive aphasia. Her reports she recently had a recent brain scan that was negative for Parkinson's disease at [facility], where she normally receives her care. She denies fever, chills, nausea, vomiting, diarrhea or constipation. Stroke alert was called in the ER with patient outside the window for tPA and already improving clinically with suspicion for a possible CVA due to her PFO and she was then admitted to the [facility] ongoing care for a stay that is expected to be greater than 48 hours. [facility] Medical History Anxiety Cardiac resynchronization therapy defibrillator ([employer]-D) in place Congestive heart failure (CHF) Coronary artery disease Diabetes mellitus Former smoker High cholesterol Hyperlipidemia Hypertension ICD (implantable cardioverter-defibrillator) in place Irregular heart beat Myocarditis PFO (patent foramen ovale) Restless legs Ulcer Home Medications citalopram 20 mg tablet 20 mg PO QHS depression 11/18/14 [History Last Taken 09/27/23] clonazepam 1 mg tablet 1 mg PO QHS anxiety 11/18/14 [History Last Taken 05/15/16 22:00] metformin 500 mg tablet 500 mg PO DAILY diabetes 11/18/14 [History Last Taken 05/17/16 22:00] multivitamin with folic acid 400 mcg tablet (Thera) 1 tab PO DAILY vitamin 11/18/14 [History Last Taken 05/17/16 22:00] trazodone 50 mg tablet 50 mg PO DAILY PRN Anxiety 11/18/14 [History Last Taken Unknown] clopidogrel 75 mg tablet 1 tab PO QHS 05/18/16 [History Last Taken 05/17/16 22:00] aspirin 81 mg tablet,delayed release 81 mg PO MOWEFR 09/28/23 [History Last Taken Unknown] baclofen 5 mg tablet 5 mg PO Q12H SPASTICITY IN RIGHT LEG 09/28/23 [History Last Taken Unknown] empagliflozin 10 mg tablet (Jardiance) 10 mg PO DAILY 09/28/23 [History Last Taken Unknown] metoprolol succinate 25 mg tablet,extended release 24 hr 12.5 mg PO DAILY 09/28/23 [History Last Taken Unknown] oxybutynin chloride 5 mg tablet,extended release 24 hr 5 mg PO DAILY PRN water retention 09/28/23 [History Last Taken Unknown] pantoprazole 40 mg tablet,delayed release 40 mg PO QHS stomach acid 09/28/23 [History Last Taken Unknown] rosuvastatin 20 mg tablet 20 mg PO QHS cholesterol 09/28/23 [History Last Taken Unknown] sacubitril-valsartan 0.5 tab PO BID HTN 09/28/23 [History Last Taken Unknown] spironolactone 0.5 tab PO MOWEFR EDEMA 09/28/23 [History Last Taken Unknown] vitamin E61-ygrzd acid 1 tab PO DAILY vitamin 09/28/23 [History Last Taken Unknown] Allergy/AdvReac Type Severity Reaction Status Date / Time No Known Allergies Allergy Verified 09/28/23 20:19 Surgical History History of cholecystectomy History of coronary artery stent placement Social History Smoking Status: Former smoker ROS ROS Narrative Review of systems: Constitution: Patient denies fever chills but does admit to fatigue. Eyes: Patient denies acute visual changes but has chronic impaired vision. HEENT: Patient has extremely dry mucous membranes and frequent involuntary mouthmovements Cardiovascular: Patient denies chest pain or palpitations Respiratory: Patient denies shortness of breath rales Gastrointestinal: Patient denies abdominal pain nausea vomiting diarrhea or constipation. Musculoskeletal: Patient denies lower extremity edema or deformity Neurology: Sensorium clearing patient alert and oriented with no acute focal neurologic deficits Psychiatry: Patient was confused on admission but is now returning to her baseline. Skin: Patient denies rash. 14 point review systems otherwise negative except for positives noted above in HPI. Vital Signs Vital Signs Vital Signs: 09/28/23 20:00 11/07/23 20:04 09/28/23 20:00 Temperature 98.1 F Temperature Source Oral Pulse Rate 75 77 78 Respiratory Rate 16 16 21 H Blood Pressure 152/86 H 158/76 H 178/65 H Blood Pressure Mean 108 103 102 Pulse Ox 98 99 94 Oxygen Delivery Method Room Air Room Air Room Air 09/28/23 20:12 09/28/23 20:12 09/28/23 20:27 Temperature Temperature Source Pulse Rate 79 78 Respiratory Rate 14 20 H Blood Pressure 165/74 H 167/63 H Blood Pressure Mean 104 97 Pulse Ox 99 99 Oxygen Delivery Method Room Air Room Air Room Air 09/28/23 20:42 09/28/23 20:57 09/28/23 22:00 Temperature Temperature Source Pulse Rate 71 70 63 Respiratory Rate 22 H 19 H 18 Blood Pressure 143/74 H 170/55 H 152/77 H Blood Pressure Mean 97 93 102 Pulse Ox 99 99 99 Oxygen Delivery Method Room Air Room Air 09/28/23 21:45 09/28/23 21:30 09/28/23 22:00 Temperature Temperature Source Pulse Rate 78 63 Respiratory Rate 16 18 18 Blood Pressure 144/77 H 152/77 H Blood Pressure Mean 99 102 Pulse Ox 100 99 Oxygen Delivery Method Room Air Room Air Weight Weight: 136 lb 7.458 oz Body Mass Index (BMI) 21.4 Physical Exam Const alert, oriented x3, no apparent distress and average body habitus General Appearance: cooperative HEENT normocephalic, head/scalp atraumatic and hearing grossly normal bilaterally HEENT Narrative: Mucous membranes dry. Eyes PERRL, EOMs intact bilaterally and conjunctivae normal Neck no lymphadenopathy, supple, no JVD and no carotid bruits Resp normal respiratory effort, no retractions, no use of accessory muscles and clearto auscultation bilaterally Cardio regular rate and regular rhythm GI normal to inspection, nondistended, normoactive bowel sounds, soft to palpation,non-tender and non-distended Extremity normal to inspection Neuro oriented x3, CN's II-XII intact bilaterally and moves all extremities Neuro Narrative: Patient has evidence of essential tremor and frequent lip-smacking. Sensorium / Orientation: awake, alert, oriented to person, oriented to place andoriented to time Coordination / Balance: [id number] test normal and umyh-[id number] test normal Speech: speech normal Motor Exam: strength 5/5 throughout Psych affect normal Results Medical Records Data Attestation: I reviewed the patient's medical records Lab / Micro Data Attestation: I reviewed the patient's lab results. 09/28/23 20:10 09/28/23 20:10 Labs: Laboratory Results - last 24 hr 09/28/23 20:10: WBC 7.3, RBC 4.14 L, Hgb 12.5, Hct 39.6, MCV 95.7, MCH 30.2, MCHC 31.6 L, RDW Std Deviation 47.4 H, RDW Coeff of Edita 13.3, Plt Count 157, MPV11.1, Immature Gran % (Auto) 0.300, Neut % (Auto) 40.8 L, Lymph % (Auto) 49.7 H,[place] % (Auto) 7.6, Eos % (Auto) 1.0, Baso % (Auto) 0.6, Absolute Neuts (auto) 3.0, Absolute Lymphs (auto) 3.61, Nucleated RBC % 0, PT 12.7, INR 1.0, APTT 24.8, Sodium 140, Potassium 3.9, Chloride 106, Carbon Dioxide 28.0, Anion Gap 6,BUN 27 H, Creatinine 1.10 H, Estim Creat Clear Calc 46.28, Est GFR (MDRD) Af Amer 63, Est GFR (MDRD) Non-Af 52 L, BUN/Creatinine Ratio 24.5 H, Glucose 159 H,Calcium 9.7, Troponin I High Sens 7 09/28/23 21:00: Urine Color Yellow, Urine Clarity Clear, Urine pH 8.0, Ur Specific [place] 1.010, Urine Protein Negative, Urine Glucose (UA) 1000 H, UrineKetones Negative, Urine Occult Blood Negative, Urine Nitrite Negative, Urine Bilirubin Negative, Urine Urobilinogen Normal, Ur Leukocyte Esterase 25 H, UrineRBC 0 SEEN, Urine WBC 0 SEEN, Ur Squamous Epith Cells 0 SEEN, Urine Bacteria 0 SEEN, Urine Mucus 0 SEEN Radiology Impression Brain CT 09/28/23 20:12 IMPRESSION: 1. Stable exam, extensive area of encephalomalacic area involving the LEFT hemisphere involving LEFT parietal and temporal lobes consistent with remote LEFT MCA infarct. 2. 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 3. No intracranial mass, hemorrhage or acute territorial infarct. 4. No radiographically significant sinus disease. N.B. : The above Results were Read Back by Jasper Ochoa MD to Uday Orosco DO, and understanding confirmed on 09/28/2023 20:30:45 (ET). Electronically Signed: Jasper Ochoa MD at 20:31 EST , ADDENDUM: 09/28/232037 IMPRESSION: 1. Stable exam, extensive area of encephalomalacic area involving the LEFT hemisphere involving LEFT parietal and temporal lobes consistent with remote LEFT MCA infarct. 2. 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 3. No intracranial mass, hemorrhage or acute territorial infarct. 4. No radiographically significant sinus disease. N.B. : The above Results were Read Back by Jasper Ochoa MD to Uday Orosco DO, and understanding confirmed on 09/28/2023 20:30:45 (ET). Electronically Signed: Jasper Ochoa MD at 20:31 EST , Head/Neck CTA 09/28/23 20:12 IMPRESSION: 1. Diffuse vascular calcifications throughout the cavernous carotid and supra clinoid carotid vessels bilaterally without stenosis or occlusion. Moderate calcifications involving the V4 segment of the RIGHT vertebral artery. 2. No evidence focal stenosis occlusion filling defects or LVO involving the intracranial circulation. 3. Moderate calcifications involving the carotid bulbs bilaterally consistent with mild (less than 50%) narrowing. No hemodynamically significant stenosis in the cervical carotid or vertebral circulation bilaterally. Electronically Signed: Jasper Ochoa MD at 20:50 EST , Chest X-Ray 09/28/23 20:15 IMPRESSION: 1. Interval placement of transvenous pacer/AICD system projecting in normal position. 2. No pneumothorax. 3. No evidence of acute cardiopulmonary process. 4. Chronic interstitial changes and pleural thickening in the RIGHT infrahilar region. No acute infiltrate. Electronically Signed: Jasper Ochoa MD at 21:05 EST , Assessment & Plan Assessment/Plan (1) CVA (cerebral vascular accident): PLAN: Plan 1. Suspected acute CVA with transient aphasia and altered mental status due to patent foramen ovale in the setting of a known previous CVA in 2008 and an additional CVA 1 year ago causing a persistent spastic right lower extremity - admit to medical floor. Recheck second CT of the head in the morning as MRI is contraindicated due to her history of cardiac resynchronization therapy with defibrillator in place. We will also check carotid ultrasound to evaluate for stenosis and echocardiogram to reevaluate her PFO. We will continue Plavix plusstatin and add baby aspirin daily. She is already passed her bedside swallow evaluation and is rapidly improving. [facility] stroke consultation is greatly appreciated. 2. Essential hypertension - Allow for permissive hypertension until stroke is definitively ruled out. Give IV Vasotec as needed for systolic blood pressure greater than 210 mmHg. 3. Hyperlipidemia - Continue statin and check lipid profile this admission. 4. Depression - Continue home medications as previous. 5. History of myocarditis - Check echocardiogram this admission. Consider cardiology consult if cardiac anatomy and physiology is markedly abnormal comparedto previous. 6. History of disease; status post stent placement - Stable continue antiplatelet therapy and statin as previous. 7. Osteoarthritis - Stable. 8. DVT prophylaxis -Lovenox 40 mg subcu daily. Total time: Approximately 55 minutes. Charges/Coding Visit Charges Inpatient E&M: 57395 Init Hosp L2 09/29/23 0710 <Electronically signed by Tony Corona DO> Cosigner Signature (if applicable): CC: Dr. Tony Corona DO; Dr. Adrienne Byers DO~ Signed [facility] Work Phone: 1(910) 220-153211-08-2023 Discharge summary Author Uday Orosco [facility] September 28, 2023 10:10pm Note Date/Time September 28, 2023 8 :55pm [facility] Medical Records Department [address] [place] [address] Emergency Department Summary 09/28/23 MR#: [id number] Acct: [id number] Name: MANSI CARO Rep #:[id number] : 1955 68 From: Uday Orosco DO PCP: Dr. Adrienne Byers DO Status:ADM IN Location: [address] History of Present Illness Chief Complaint: Neuro S/Sx Narrative Narrative: 68-year-old female presenting with strokelike symptoms with her . Onset was 4 PM. Patient's states she is just not acting right. She appears to be confused. She complains of dizziness and blurry vision. She cannot describe this. Patient's states that she is having fragmented sentences. She is not making sense. Initially he tried to get her to come to the emergency room but she was arguing with him. He finally put her in the car and brought her here. She was unable to walk on arrival and was wheelchair then. History of stroke a year ago with residual deficit of spastic right lowerextremity. Patient is on Plavix. [facility] Medical History Cardiac resynchronization therapy defibrillator (HEAD BELLH[employer] CAPTAIN-D) in place Diabetes mellitus Hyperlipidemia Hypertension Myocarditis PFO (patent foramen ovale) Home Medications amlodipine 5 mg-olmesartan 20 mg tablet (Joaquín) 0.5 udtab PO QODAY 11/18/14 [History Last Taken 05/16/16 22:00] citalopram 20 mg tablet 20 mg PO QHS 11/18/14 [History Last Taken 05/17/16 22:00] clonazepam 1 mg tablet 1 mg PO QHS anxiety 11/18/14 [History Last Taken 05/15/16 22:00] ergocalciferol (vitamin D2) 1,250 mcg (50,000 unit) capsule (Vitamin D2) 2,000 iu PO QHS 11/18/14 [History Last Taken 05/17/16 22:00] metformin 500 mg tablet 500 mg PO QHS 11/18/14 [History Last Taken 05/17/16 22:00] multivitamin with folic acid 400 mcg tablet (Thera) 1 tab PO QHS 12/28/14 [History Last Taken 05/17/16 22:00] rosuvastatin 5 mg tablet (Crestor) 5 mg PO QHS 11/18/14 [History Last Taken 05/17/16 22:00] trazodone 50 mg tablet 50 mg PO DAILY PRN Anxiety 11/18/14 [History Last Taken Unknown] pantoprazole 40 mg tablet,delayed release 40 mg PO BID ##120 12/12/14 [Rx Last Taken Unknown] clopidogrel 75 mg tablet 1 tab PO QHS 05/18/16 [History Last Taken 05/17/16 22:00] aspirin 81 mg tablet,delayed release 81 mg PO MOWEFR 09/28/23 [History Last Taken Unknown] baclofen 5 mg tablet 5 mg PO Q12H SPASTICITY IN RIGHT LEG 09/28/23 [History Last Taken Unknown] empagliflozin 10 mg tablet (Jardiance) 10 mg PO DAILY 09/28/23 [History Last Taken Unknown] metoprolol succinate 25 mg tablet,extended release 24 hr 12.5 mg PO DAILY 09/28/23 [History Last Taken Unknown] oxybutynin chloride 5 mg tablet,extended release 24 hr 5 mg PO DAILY 09/28/23 [History Last Taken Unknown] rosuvastatin 20 mg tablet 20 mg PO DAILY 09/28/23 [History Last Taken Unknown] sacubitril-valsartan 0.5 tab PO BID HTN 09/28/23 [History Last Taken Unknown] spironolactone 0.5 tab PO MOWEFR EDEMA 09/28/23 [History Last Taken Unknown] vitamin O16-gsydj acid PO 09/28/23 [History Last Taken Unknown] Allergy/AdvReac Type Severity Reaction Status Date / Time No Known Allergies Allergy Verified 09/28/23 20:19 Social History Smoking Status: Former smoker ROS ROS ED Review of Systems ROS Unobtainable: due to mental condition and due to mental status EXAM Physical Exam Const Vital Signs: 09/28/23 20:00 09/28/23 20:04 09/28/23 20:00 Temperature 98.1 F Temperature Source Oral Pulse Rate 75 77 78 Respiratory Rate 16 16 21 H Blood Pressure 152/86 H 158/76 H 178/65 H Blood Pressure Mean 108 103 102 Pulse Ox 98 99 94 Oxygen Delivery Method Room Air Room Air Room Air 09/28/23 20:12 09/28/23 20:12 09/28/23 20:27 Temperature Temperature Source Pulse Rate 79 78 Respiratory Rate 14 20 H Blood Pressure 165/74 H 167/63 H Blood Pressure Mean 104 97 Pulse Ox 99 99 Oxygen Delivery Method Room Air Room Air Room Air 09/28/23 20:42 09/28/23 20:57 09/28/23 21:30 Temperature Temperature Source Pulse Rate 71 70 78 Respiratory Rate 22 H 19 H 18 Blood Pressure 143/74 H 170/55 H 144/77 H Blood Pressure Mean 97 93 99 Pulse Ox 99 99 100 Oxygen Delivery Method Room Air Room Air Room Air Positive well nourished Constitutional Narrative: Confused HEENT Reports moist mucous membranes Eyes General Eye ED: Negative for pale conjunctiva or scleral icterus Chest Wall inspection of chest normal Resp normal respiratory effort and clear to auscultation bilaterally Auscultation: Negative for rales, rhonchi or wheezes Cardio Rate: regular rate Rhythm: regular rhythm GI normal to inspection, nondistended, normoactive bowel sounds Extremity normal to inspection General Extremety ED: Negative for deformity or edema General Extremity: Negative for deformity or edema Neuro oriented x3 and CN's II-XII intact bilaterally Sensorium / Orientation: alert Motor Exam: strength 5/5 throughout Psych Psych Narrative: Confused Skin no wounds NIHSS NIHSS Initial: 1a Level of Consciousness: 0 1b LOC Questions (Score 2 if aphasic/stupor): 0 1c LOC Commands (Only score 1st attempt): 0 2 Best Gaze (If aphasic, use reflexive mvmts.): 0 3 Visual: 0 4 Facial Palsy: 0 5 Motor Arm Right (UN = amputation/fusion): 0 5 Motor Arm Left: 0 6 Motor Leg Right: 0 6 Motor Leg Left: 0 7 Limb ataxia (Only + if out of proportion): 0 8 Sensory (Aphasia/stupor=0 or 1, coma=2): 1 9 Best Language: 1 10 Dysarthria (mute, coma=2, intubated=UN): 0 11 Extinction and Inattention (only scored if +): 0 Total Score: 2 MDM MDM MDM Narrative Medical decision making narrative: Patient seen and evaluated on arrival. An extra scale score of 2. History of stroke. She is a little bit of expressive aphasia and some decrease sensation of the right leg otherwise her exam is normal. She does seem a bit confused andis a poor informant but she is alert and awake. She states that she has blurry vision but this is improved if she closes her left eye. She does not describe diplopia. When she closes her right eye her vision is just as bad as when she has both eyes open . she keeps stating she has monocular vision. Stroke team was called patient taken to CT and CT brain and CTA were obtained although she is outside the window for tPA is possibility of large vessel occlusion. CBC wasobtained and shows normal white blood cell count, hemoglobin, platelets. PT/INRnormal. High-sensitivity troponin is 7. Creatinine slightly elevated 1.10. Radiology called and told me that the CT brain was negative. Still waiting for the CTA. CTA returned negative. Review the medical record shows the patient has a PFO which makes her high risk for stroke although we do not see any evidence of 1. She will need to be admitted for MRI. This was the recommendation by the neurologist. Patient given aspirin in ED. Discussed withhospitalist for admission. Impression: 1. CVA Lab Data Attestation: I reviewed the patient's lab results. Labs: Laboratory Results - last 24 hr 09/28/23 09/28/23 20:10 21:00 WBC 7.3 RBC 4.14 L Hgb 12.5 Hct 39.6 MCV 95.7 MCH 30.2 MCHC 31.6 L RDW Std Deviation 47.4 H RDW Coeff of Edita 13.3 Plt Count 157 MPV 11.1 Immature Gran % (Auto) 0.300 Neut % (Auto) 40.8 L Lymph % (Auto) 49.7 H [place] % (Auto) 7.6 Eos % (Auto) 1.0 Baso % (Auto) 0.6 Absolute Neuts (auto) 3.0 Absolute Lymphs (auto) 3.61 Nucleated RBC % 0 PT 12.7 INR 1.0 APTT 24.8 Sodium 140 Potassium 3.9 Chloride 106 Carbon Dioxide 28.0 Anion Gap 6 BUN 27 H Creatinine 1.10 H Estim Creat Clear Calc 46.28 Est GFR (MDRD) Af Amer 63 Est GFR (MDRD) Non-Af 52 L BUN/Creatinine Ratio 24.5 H Glucose 159 H Calcium 9.7 Troponin I High Sens 7 Urine Color Yellow Urine Clarity Clear Urine pH 8.0 Ur Specific [place] 1.010 Urine Protein Negative Urine Glucose (UA) 1000 H Urine Ketones Negative Urine Occult Blood Negative Urine Nitrite Negative Urine Bilirubin Negative Urine Urobilinogen Normal Ur Leukocyte Esterase 25 H Urine RBC 0 SEEN Urine WBC 0 SEEN Ur Squamous Epith Cells 0 SEEN Urine Bacteria 0 SEEN Urine Mucus 0 SEEN Radiography Diagnostic Testing: Clinical Impression(s) from Imaging Studies Brain CT 09/28/23 20:12 IMPRESSION: 1. Stable exam, extensive area of encephalomalacic area involving the LEFT hemisphere involving LEFT parietal and temporal lobes consistent with remote LEFT MCA infarct. 2. 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 3. No intracranial mass, hemorrhage or acute territorial infarct. 4. No radiographically significant sinus disease. N.B. : The above Results were Read Back by Jasper Ochoa MD to Uday Orosco DO, and understanding confirmed on 09/28/2023 20:30:45 (ET). Electronically Signed: Jasper Ochoa MD at 20:31 EST , ADDENDUM: 09/28/232037 IMPRESSION: 1. Stable exam, extensive area of encephalomalacic area involving the LEFT hemisphere involving LEFT parietal and temporal lobes consistent with remote LEFT MCA infarct. 2. 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 3. No intracranial mass, hemorrhage or acute territorial infarct. 4. No radiographically significant sinus disease. N.B. : The above Results were Read Back by Jasper Ochoa MD to Uday Orosco DO, and understanding confirmed on 09/28/2023 20:30:45 (ET). Electronically Signed: Jasper Ochoa MD at 20:31 EST , Head/Neck CTA 09/28/23 20:12 IMPRESSION: 1. Diffuse vascular calcifications throughout the cavernous carotid and supra clinoid carotid vessels bilaterally without stenosis or occlusion. Moderate calcifications involving the V4 segment of the RIGHT vertebral artery. 2. No evidence focal stenosis occlusion filling defects or LVO involving the intracranial circulation. 3. Moderate calcifications involving the carotid bulbs bilaterally consistent with mild (less than 50%) narrowing. No hemodynamically significant stenosis in the cervical carotid or vertebral circulation bilaterally. Electronically Signed: Jasper Ochoa MD at 20:50 EST , Chest X-Ray 09/28/23 20:15 IMPRESSION: 1. Interval placement of transvenous pacer/AICD system projecting in normal position. 2. No pneumothorax. 3. No evidence of acute cardiopulmonary process. 4. Chronic interstitial changes and pleural thickening in the RIGHT infrahilar region. No acute infiltrate. Electronically Signed: Jasper Ochoa MD at 21:05 EST , Discharge Plan Triage Chief Complaint: Neuro S/Sx ED Provider: Uday Orosco Dx/Rx/DC Orders Primary Care Provider: Adrienne Byers What to do if you have Problems For any increased pain, shortness of breath, bleeding, nausea or vomiting, chestpain, or any unexpected problems, contact your Primary Care Provider. Call [facility] ([phone]) or report to the closest Emergency Room. Call 911 if necessary. 09/28/232209 <Electronically signed by Uday Orosco DO> Cosigner Signature (if applicable): CC: Dr. Adrienne Byers DO ~ Signed [facility] Work Phone: [phone]) 435-712411-07-2023 Discharge summary Author Uday Orosco [facility] September 28, 2023 10:10pm Note Date/Time September 28, 2023 8 :55pm [facility] Medical Records Department [address] [place] [address] Emergency Department Summary 09/28/23 MR#: [id number] Acct: [id number] Name: MIKHAILMANSI GILBERT Hema Rep #:[id number] : 1955 68 From: Uday Orosco DO PCP: Dr. Adrienne Byers DO Status:ADM IN Location: [address] [facility] History of Present Illness Chief Complaint: Neuro S/Sx Narrative Narrative: 68-year-old female presenting with strokelike symptoms with her . Onset was 4 PM. Patient's states she is just not acting right. She appears to be confused. She complains of dizziness and blurry vision. She cannot describe this. Patient's states that she is having fragmented sentences. She is not making sense. Initially he tried to get her to come to the emergency room but she was arguing with him. He finally put her in the car and brought her here. She was unable to walk on arrival and was wheelchair then. History of stroke a year ago with residual deficit of spastic right lowerextremity. Patient is on Plavix. [facility] Medical History Cardiac resynchronization therapy defibrillator (HEAD BELLH[employer] CAPTAIN-D) in place Diabetes mellitus Hyperlipidemia Hypertension Myocarditis PFO (patent foramen ovale) Home Medications amlodipine 5 mg-olmesartan 20 mg tablet (Joaquín) 0.5 udtab PO QODAY 11/18/14 [History Last Taken 05/16/16 22:00] citalopram 20 mg tablet 20 mg PO QHS 11/18/14 [History Last Taken 05/17/16 22:00] clonazepam 1 mg tablet 1 mg PO QHS anxiety 11/18/14 [History Last Taken 05/15/16 22:00] ergocalciferol (vitamin D2) 1,250 mcg (50,000 unit) capsule (Vitamin D2) 2,000 iu PO QHS 11/18/14 [History Last Taken 05/17/16 22:00] metformin 500 mg tablet 500 mg PO QHS 11/18/14 [History Last Taken 05/17/16 22:00] multivitamin with folic acid 400 mcg tablet (Thera) 1 tab PO QHS 11/18/14 [History Last Taken 05/17/16 22:00] rosuvastatin 5 mg tablet (Crestor) 5 mg PO QHS 11/18/14 [History Last Taken 05/17/16 22:00] trazodone 50 mg tablet 50 mg PO DAILY PRN Anxiety 11/18/14 [History Last Taken Unknown] pantoprazole 40 mg tablet,delayed release 40 mg PO BID ##120 12/12/14 [Rx Last Taken Unknown] clopidogrel 75 mg tablet 1 tab PO QHS 05/18/16 [History Last Taken 05/17/16 22:00] aspirin 81 mg tablet,delayed release 81 mg PO MOWEFR 09/28/23 [History Last Taken Unknown] baclofen 5 mg tablet 5 mg PO Q12H SPASTICITY IN RIGHT LEG 09/28/23 [History Last Taken Unknown] empagliflozin 10 mg tablet (Jardiance) 10 mg PO DAILY 09/28/23 [History Last Taken Unknown] metoprolol succinate 25 mg tablet,extended release 24 hr 12.5 mg PO DAILY 09/28/23 [History Last Taken Unknown] oxybutynin chloride 5 mg tablet,extended release 24 hr 5 mg PO DAILY 09/28/23 [History Last Taken Unknown] rosuvastatin 20 mg tablet 20 mg PO DAILY 09/28/23 [History Last Taken Unknown] sacubitril-valsartan 0.5 tab PO BID HTN 09/28/23 [History Last Taken Unknown] spironolactone 0.5 tab PO MOWEFR EDEMA 09/28/23 [History Last Taken Unknown] vitamin H55-sjiav acid PO 09/28/23 [History Last Taken Unknown] Allergy/AdvReac Type Severity Reaction Status Date / Time No Known Allergies Allergy Verified 09/28/23 20:19 Social History Smoking Status: Former smoker ROS ROS ED Review of Systems ROS Unobtainable: due to mental condition and due to mental status EXAM Physical Exam Const Vital Signs: 09/28/23 20:00 09/28/23 20:04 09/28/23 20:00 Temperature 98.1 F Temperature Source Oral Pulse Rate 75 77 78 Respiratory Rate 16 16 21 H Blood Pressure 152/86 H 158/76 H 178/65 H Blood Pressure Mean 108 103 102 Pulse Ox 98 99 94 Oxygen Delivery Method Room Air Room Air Room Air 09/28/23 20:12 09/28/23 20:12 09/28/23 20:27 Temperature Temperature Source Pulse Rate 79 78 Respiratory Rate 14 20 H Blood Pressure 165/74 H 167/63 H Blood Pressure Mean 104 97 Pulse Ox 99 99 Oxygen Delivery Method Room Air Room Air Room Air 09/28/23 20:42 09/28/23 20:57 09/28/23 21:30 Temperature Temperature Source Pulse Rate 71 70 78 Respiratory Rate 22 H 19 H 18 Blood Pressure 143/74 H 170/55 H 144/77 H Blood Pressure Mean 97 93 99 Pulse Ox 99 99 100 Oxygen Delivery Method Room Air Room Air Room Air Positive well nourished Constitutional Narrative: Confused HEENT Reports moist mucous membranes Eyes General Eye ED: Negative for pale conjunctiva or scleral icterus Chest Wall inspection of chest normal Resp normal respiratory effort and clear to auscultation bilaterally Auscultation: Negative for rales, rhonchi or wheezes Cardio Rate: regular rate Rhythm: regular rhythm GI normal to inspection, nondistended, normoactive bowel sounds Extremity normal to inspection General Extremety ED: Negative for deformity or edema General Extremity: Negative for deformity or edema Neuro oriented x3 and CN's II-XII intact bilaterally Sensorium / Orientation: alert Motor Exam: strength 5/5 throughout Psych Psych Narrative: Confused Skin no wounds NIHSS NIHSS Initial: 1a Level of Consciousness: 0 1b LOC Questions (Score 2 if aphasic/stupor): 0 1c LOC Commands (Only score 1st attempt): 0 2 Best Gaze (If aphasic, use reflexive mvmts.): 0 3 Visual: 0 4 Facial Palsy: 0 5 Motor Arm Right (UN = amputation/fusion): 0 5 Motor Arm Left: 0 6 Motor Leg Right: 0 6 Motor Leg Left: 0 7 Limb ataxia (Only + if out of proportion): 0 8 Sensory (Aphasia/stupor=0 or 1, coma=2): 1 9 Best Language: 1 10 Dysarthria (mute, coma=2, intubated=UN): 0 11 Extinction and Inattention (only scored if +): 0 Total Score: 2 MDM MDM MDM Narrative Medical decision making narrative: Patient seen and evaluated on arrival. An extra scale score of 2. History of stroke. She is a little bit of expressive aphasia and some decrease sensation of the right leg otherwise her exam is normal. She does seem a bit confused andis a poor informant but she is alert and awake. She states that she has blurry vision but this is improved if she closes her left eye. She does not describe diplopia. When she closes her right eye her vision is just as bad as when she has both eyes open . she keeps stating she has monocular vision. Stroke team was called patient taken to CT and CT brain and CTA were obtained although she is outside the window for tPA is possibility of large vessel occlusion. CBC wasobtained and shows normal white blood cell count, hemoglobin, platelets. PT/INRnormal. High-sensitivity troponin is 7. Creatinine slightly elevated 1.10. Radiology called and told me that the CT brain was negative. Still waiting for the CTA. CTA returned negative. Review the medical record shows the patient has a PFO which makes her high risk for stroke although we do not see any evidence of 1. She will need to be admitted for MRI. This was the recommendation by the neurologist. Patient given aspirin in ED. Discussed withhospitalist for admission. Impression: 1. CVA Lab Data Attestation: I reviewed the patient's lab results. Labs: Laboratory Results - last 24 hr 09/28/23 09/28/23 20:10 21:00 WBC 7.3 RBC 4.14 L Hgb 12.5 Hct 39.6 MCV 95.7 MCH 30.2 MCHC 31.6 L RDW Std Deviation 47.4 H RDW Coeff of Edita 13.3 Plt Count 157 MPV 11.1 Immature Gran % (Auto) 0.300 Neut % (Auto) 40.8 L Lymph % (Auto) 49.7 H [place] % (Auto) 7.6 Eos % (Auto) 1.0 Baso % (Auto) 0.6 Absolute Neuts (auto) 3.0 Absolute Lymphs (auto) 3.61 Nucleated RBC % 0 PT 12.7 INR 1.0 APTT 24.8 Sodium 140 Potassium 3.9 Chloride 106 Carbon Dioxide 28.0 Anion Gap 6 BUN 27 H Creatinine 1.10 H Estim Creat Clear Calc 46.28 Est GFR (MDRD) Af Amer 63 Est GFR (MDRD) Non-Af 52 L BUN/Creatinine Ratio 24.5 H Glucose 159 H Calcium 9.7 Troponin I High Sens 7 Urine Color Yellow Urine Clarity Clear Urine pH 8.0 Ur Specific [place] 1.010 Urine Protein Negative Urine Glucose (UA) 1000 H Urine Ketones Negative Urine Occult Blood Negative Urine Nitrite Negative Urine Bilirubin Negative Urine Urobilinogen Normal Ur Leukocyte Esterase 25 H Urine RBC 0 SEEN Urine WBC 0 SEEN Ur Squamous Epith Cells 0 SEEN Urine Bacteria 0 SEEN Urine Mucus 0 SEEN Radiography Diagnostic Testing: Clinical Impression(s) from Imaging Studies Brain CT 09/28/23 20:12 IMPRESSION: 1. Stable exam, extensive area of encephalomalacic area involving the LEFT hemisphere involving LEFT parietal and temporal lobes consistent with remote LEFT MCA infarct. 2. 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 3. No intracranial mass, hemorrhage or acute territorial infarct. 4. No radiographically significant sinus disease. N.B. : The above Results were Read Back by Jasper Ochoa MD to Uday Orosco DO, and understanding confirmed on 09/28/2023 20:30:45 (ET). Electronically Signed: Jasper Ochoa MD at 20:31 EST , ADDENDUM: 09/28/232037 IMPRESSION: 1. Stable exam, extensive area of encephalomalacic area involving the LEFT hemisphere involving LEFT parietal and temporal lobes consistent with remote LEFT MCA infarct. 2. 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 3. No intracranial mass, hemorrhage or acute territorial infarct. 4. No radiographically significant sinus disease. N.B. : The above Results were Read Back by Jasper Ochoa MD to Uday Orosco DO, and understanding confirmed on 09/28/2023 20:30:45 (ET). Electronically Signed: Jasper Ochoa MD at 20:31 EST , Head/Neck CTA 09/28/23 20:12 IMPRESSION: 1. Diffuse vascular calcifications throughout the cavernous carotid and supra clinoid carotid vessels bilaterally without stenosis or occlusion. Moderate calcifications involving the V4 segment of the RIGHT vertebral artery. 2. No evidence focal stenosis occlusion filling defects or LVO involving the intracranial circulation. 3. Moderate calcifications involving the carotid bulbs bilaterally consistent with mild (less than 50%) narrowing. No hemodynamically significant stenosis in the cervical carotid or vertebral circulation bilaterally. Electronically Signed: Jasper Ochoa MD at 20:50 EST , Chest X-Ray 09/28/23 20:15 IMPRESSION: 1. Interval placement of transvenous pacer/AICD system projecting in normal position. 2. No pneumothorax. 3. No evidence of acute cardiopulmonary process. 4. Chronic interstitial changes and pleural thickening in the RIGHT infrahilar region. No acute infiltrate. Electronically Signed: Jasper Ochoa MD at 21:05 EST , Discharge Plan Triage Chief Complaint: Neuro S/Sx ED Provider: Uday Orosco Dx/Rx/DC Orders Primary Care Provider: Adrienne Byers What to do if you have Problems For any increased pain, shortness of breath, bleeding, nausea or vomiting, chestpain, or any unexpected problems, contact your Primary Care Provider. Call [facility] ([phone]) or report to the closest Emergency Room. Call 911 if necessary. 09/28/232209 <Electronically signed by Uday Orosco DO> Cosigner Signature (if applicable): CC: Dr. Adrienne Byers DO ~ Signed [facility] Work Phone: [phone]) 577-318210-31-2023 History of Present illness Narrative* Nirmal Carpio, RT(R) - 09/21/2023 10:00 AM EDT RADIOLOGY SERVICE PROGRESS NOTE SERVICE DATE: 09/21/2023 SERVICE TIME: 10:00 AM PATIENT IDENTITY VERIFICATION COMPLETED USING TWO (2) STANDARD IDENTIFIERS: Name and Date of confirmed by patient verbally FALL SCREENING: Has the patient had 2 falls in the last year or 1 fall with injury or currently using an Ambulatory Assistive Device (Walker, Cane, Wheelchair, Crutches, etc.)? No PATIENT GENDER DATA: .female : No ALLERGIES: Reviewed and unchanged MEDICATIONS REVIEWED: No IV SITE: Ambulatory: A peripheral IV was started in the Right wrist with a Angio cath: 22 gauge. POST EXAM PIV STATUS: Discontinued PROCEDURE TYPE: NM INJECT: Brain Tremor SPECT/CT. 5.1 mCi I 123 DatScan. 4 Drops of Lugol's Solution given orally at 0955. ADMINISTRATION TIME: 1010 PATIENT DISCHARGED TO: Ambulatory patient, left [place] department area. A Diagnostic radioactive procedure has taken place, with no further precautions necessary other than routine body substance precautions. More information regarding radiation safety can be found usingthis link: [email or web address] SIGNATURE: RT Medina(R) PATIENT NAME: Mansi Caro DATE: September 21, 2023 TIME: 10:00 AM [facility]AGER/CONTACT [facility] ORIGINAL EXAMINATION: CT OF THE ABDOMEN AND PELVIS WITH CONTRAST 09/07/2023 9:52 am TECHNIQUE: CT of the abdomen and pelvis was performed with the administration of intravenous contrast. Multiplanar reformatted images are provided for review. Automated exposure control, iterative reconstruction, and/or weight based adjustment of the mA/kV was utilized to reduce the radiation dose to as low as reasonably achievable. COMPARISON: February 18, 2018 HISTORY: ORDERING SYSTEM PROVIDED HISTORY: Reason for Exam: left lower quadrant pain FINDINGS: Minor degenerative changes are noted in the spine, greatest inferiorly. No other osseous abnormality identified. Scattered emphysematous airspaces are present at the lung bases with minimal regions of scarring. Liver, spleen, adrenal glands and pancreas are unremarkable. A prominent left midpole renal cyst is present. No other kidney finding. No adenopathy, free air or free fluid seen. The urinary bladder and solid pelvic organs are grossly normal. Mild sigmoid and distal left colon diverticulosis is present, without evidence for diverticulitis. Minor scattered noninflamed diverticula are noted elsewhere as well. No other GI tract abnormality is visible. The appendix is normal. No additional contributory finding. IMPRESSION: No acute abnormality identified. Diverticulosis without diverticulitis. Interpreted by: Adrienne Chanel MD Preliminary Report By: Adrienne Chanel MD Electronically signed By Adrienne Chanel MD Dictated Date: 09/07/2023 10:03:27 AM Prelim Date: 09/07/2023 10:17:27 AM Sign Date: 09/07/2023 10:17:27 AM Ordering Provider: [facility]10-08-2023 Note . MICRO - Microbiology PROCEDURE: Urine Culture [*1] SOURCE: Urine, Clean Catch BODY SITE: COLLECTED DATE/TIME: 08/27/2023 17:12 EDT RECEIVED DATE/TIME: 08/27/2023 20:25 EDT START DATE/TIME: 08/27/2023 20:25 EDT FREE TEXT SOURCE: FINAL REPORTS Final Report [] Verified Date/Time/Personnel: 08/29/2023 08:30 EDT 10,000 - 50,000 cfu/ml Multiple bacterial morphotypes present. Probable Contamination. Suggest recollection if clinically indicated. PRELIMINARY REPORTS Preliminary Report [] Verified Date/Time/Personnel: 08/28/2023 10:30 EDT Culture results pending. Performing Locations *1: This test was performed at: [facility], [address] [place] [address], [facility] , [facility]08-04-2023 Hospital Discharge instructions Patient Education 08/04/2023 12:31:44 Understanding Rabies Understanding Rabies Rabies is a virus that infects the nerves and the brain. Any warm-blooded animal, including humans,can get it. It is spread in the saliva of an infected animal. Rabies can be treated. Untreated rabies is almost always fatal. What causes of rabies? Infections occur when saliva or brain tissue from an infected animal enters another mammal s body. This can be through a bite or scrape that breaks the skin. Rarely, infection can be spread through amucous membrane, such as the eye or mouth. In [place], raccoons, bats, foxes, and skunks are most likely to carry the rabies virus. Dogs, cats, and ferrets can also get rabies. Many people have their pets vaccinated. Because of this, pets do not pose a high risk for rabies in this region. This is not the case in other parts of the world. What are the symptoms of rabies? In most cases, symptoms of rabies start 1 to 3 months after exposure. But in some cases, they may not show up for more than a year. First symptoms may include: Feeling unwell Weakness Fatigue Low-grade fever Nausea or vomiting Headache Over many days to a few weeks more symptoms may develop. These include tingling, itching, numbness,or a burning sensation where the bite occurred. It is very important to talk with your healthcare provider right away if you think you have been exposed to rabies. Once these symptoms develop, the infection may be far advanced. The end stages of rabies are almost always fatal. Symptoms at that point include restlessness and confusion, drooling, pain when trying to drink, muscle weakness, numbness, and paralysis. What to do If you have been bitten or scratched by a wild animal, contact your healthcare provider right away. If you have been bitten or scratched by a pet, and you do not know if it has had a rabies vaccine, call your local animal control department or your local public health department. The animal will probably be confined with its optometrist/practice owner for 10 days. If the animal does not develop rabies in that time, you are not at risk of getting sick. How is rabies treated? Treatments focus on reducing the risk of developing rabies after a bite or scratch. They include: Cleaning the wound thoroughly. The risk of infection can be reduced by washing the bite or scratch with soap and water, or water and iodine. Getting a tetanus vaccine, if you have not had one in 10 years or more. This is to prevent infection with tetanus. This is a bacterium that can cause another serious illness known as lockjaw. Getting a series of shots to prevent rabies infection. These are usually given in the arm, like a flu shot. They include the rabies vaccine and the human rabies antibody to help your body fight the virus. This treatment can work even after rabies has entered the body, but not after symptoms begin. What are the possible complications of rabies? Rabies infections that are not treated almost always result in . By the time symptoms of rabies appear, it is usually too late for treatment to work. If you think you have been exposed to rabies, it is very important to talk with your healthcare provider right away. He or she will tell you whether you should be treated. How can I prevent rabies? If you don t take unnecessary risks, you don t need to be afraid of getting rabies. To avoid exposure: Don t handle wild animals or stray dogs or cats. Report strays and ill animals to animal control. Vaccinate your pets. Urge your neighbors to do the same. Try to limit your pets exposure to wild animals. If you are traveling to other countries, ask your healthcare provider or a travel clinic about vaccines you should have. When should I call my healthcare provider? Call your healthcare provider right away if you have any of these: A bite or scratch from a wild animal that has broken the skin. This might be from a raccoon or skunk. A bite or scratch from a pet animal that has broken the skin, and you cannot be sure that it has had a current rabies vaccine. You or your child may have been scratched or bitten by a bat. Bites and scratches from bats may notbe noticed, especially by children. [id number] [employer]. [address] [place] [address]. All rights reserved. This information is not intended as a substitute for professional medical care. Always follow yourgrant hospitalcare professional's instructions. 08/04/2023 12:31:41 9- AO ED Rabies Follow-up Vaccination [place] Rabies Follow-Up Vaccination Information Sheet SUMMARY After initial vaccination is received in ER (day 0), follow-up vaccinations are given on days 3, 7 and 14 for a total of 4 doses. You should have received a prescription that has the information for follow-up vaccinations (medication and dates). Bring this prescription with you wherever you choose to receive your follow-up vaccinations. OPTIONS FOR FOLLOW-UP VACCINATIONS Call your family physician to set up appointments to receive your follow-up rabies vaccinations. OR Call the [facility] at to schedule your follow-up vaccination appointments. Hours: 8a-4:30p, Wednesday through Wednesday OR Call [facility] to schedule your follow-up vaccination appointments. Follow Up Care 08/04/2023 11:57:19 With:ADRIENNE BYERS Address: [address] [place] [address] [place] [address]- [phone] Business (1) When:2-4 days [facility] 09-13-2023 Emergency department Discharge summary Discharge Instructions Thank you for allowing [facility] to assist you with your healthcare needs. The following is importantdischarge information regarding your hospital visit. Diagnosis from Today's Visit Bat exposure What to Do Next Instructions from Your Care Team No qualifying data available. Post Acute Orders No qualifying data available. You Need to Schedule the Following Appointments Follow Up with ADRIENNE BYERS When Within 2-4 days Where: [address] [facility] [place] [address]- [phone] Business (1) Allergies NKA Immunizations This Visit Given Vaccine Daterabies vaccine, purified chick embryo 08/04/2023 Medications Please ask your primary doctor or pharmacist before taking any other medication not listed, including over the counter drugs, herbal medications, vitamins and or supplements as they may interact withyour home medications. What How Much When Why Instructions Last Dose New rabies vaccine, purified chick embryo cell (RabAvert 2.5 intl units intramuscular injection) 1 Milliliter Intramuscular As Directed as needed for give on days 3,7,14 and 28 Duration: 25 Days Printed Prescription Unchanged aspirin (aspirin 81 mg oral delayed release tablet) 1 tab(s) by mouth Every other day Duration: 90 Days Unchanged baclofen (baclofen 5 mg oral tablet) 1 tab(s) by mouth Two (2) times a day decreased dose Unchanged carbonyl iron (Iron Chews) See instructions 18 mcg gummy daily Unchanged cholecalciferol (Vitamin D (3) 45 units oral capsule) See instructions Unchanged clonazePAM (clonazePAM 1 mg oral tablet) 1 tab(s) by mouth Daily at bedtime Eye twitch Duration: 90 Days fill on or after Unchanged clopidogrel (Plavix 75 mg oral tablet) 1 tab(s) by mouth Once a day Duration: 90 Days Unchanged cyanocobalamin (Vitamin B12) See instructions Unchanged docusate (docusate sodium 100 mg oral capsule) 1 cap by mouth Two (2) times a day as needed for as needed for constipation Unchanged empagliflozin (Jardiance 10 mg oral tablet) 0.5 tab(s) by mouth Once a day (in the morning) Unchanged escitalopram (escitalopram 10 mg oral tablet) 1 tab(s) by mouth Once a day Duration: 90 Days Unchanged metFORMIN (MetFORMIN (Eqv-Glucophage XR) 500 mg oral tablet, EXTENDED RELEASE) 1 tab(s) by mouth Once a day Unchanged metoprolol (metoprolol succinate 25 mg oral TABLET extended release) 0.5 tab(s) by mouth Once a day Do not crush or chew (controlled release) Unchanged multivitamin with minerals (Celebrate Multivitamin oral tablet, chewable) 2 tab(s) Chewed Once a day Unchanged oxybutynin (oxybutynin 5 mg/ 24 hours oral tablet, extended release) 1 tab(s) by mouth Once a day Unchanged pantoprazole (pantoprazole 40 mg oral enteric coated tablet) 1 tab(s) by mouth Once a day before a meal Duration: 90 Days Unchanged polyethylene glycol 3350 (MiraLax oral powder for reconstitution) 17 gram(s) by mouth Every day Unchanged rosuvastatin (rosuvastatin 20 mg oral tablet) Unchanged sacubitril-valsartan (Entresto 24 mg-26 mg oral tablet) See instructions 1/ 2 tab(s) Oral BID Unchanged spironolactone (spironolactone 25 mg oral tablet) 0.5 tab(s) by mouth Every other day Unchanged traZODone (traZODone 50 mg oral tablet) 1 tab(s) by mouth Daily at bedtime Please take this list to your next doctor s visit. Bring all medications you take, including over the counter medications, herbals and other supplements with you to your doctor s visit. Patients and families are reminded to discard old lists and to update any records with all medication providers or retail pharmacies. Education Materials Understanding Rabies Rabies is a virus that infects the nerves and the brain. Any warm-blooded animal, including humans,can get it. It is spread in the saliva of an infected animal. Rabies can be treated. Untreated rabies is almost always fatal. What causes of rabies? Infections occur when saliva or brain tissue from an infected animal enters another mammal s body. This can be through a bite or scrape that breaks the skin. Rarely, infection can be spread through amucous membrane, such as the eye or mouth. In [place], raccoons, bats, foxes, and skunks are most likely to carry the rabies virus. Dogs, cats, and ferrets can also get rabies. Many people have their pets vaccinated. Because of this, pets do not pose a high risk for rabies in this region. This is not the case in other parts of the world. What are the symptoms of rabies? In most cases, symptoms of rabies start 1 to 3 months after exposure. But in some cases, they may not show up for more than a year. First symptoms may include: Feeling unwell Weakness Fatigue Low-grade fever Nausea or vomiting Headache Over many days to a few weeks more symptoms may develop. These include tingling, itching, numbness,or a burning sensation where the bite occurred. It is very important to talk with your healthcare provider right away if you think you have been exposed to rabies. Once these symptoms develop, the infection may be far advanced. The end stages of rabies are almost always fatal. Symptoms at that point include restlessness and confusion, drooling, pain when trying to drink, muscle weakness, numbness, and paralysis. What to do If you have been bitten or scratched by a wild animal, contact your healthcare provider right away. If you have been bitten or scratched by a pet, and you do not know if it has had a rabies vaccine, call your local animal control department or your local public health department. The animal will probably be confined with its optometrist/practice owner for 10 days. If the animal does not develop rabies in that time, you are not at risk of getting sick. How is rabies treated? Treatments focus on reducing the risk of developing rabies after a bite or scratch. They include: Cleaning the wound thoroughly. The risk of infection can be reduced by washing the bite or scratch with soap and water, or water and iodine. Getting a tetanus vaccine, if you have not had one in 10 years or more. This is to prevent infection with tetanus. This is a bacterium that can cause another serious illness known as lockjaw. Getting a series of shots to prevent rabies infection. These are usually given in the arm, like a flu shot. They include the rabies vaccine and the human rabies antibody to help your body fight the virus. This treatment can work even after rabies has entered the body, but not after symptoms begin. What are the possible complications of rabies? Rabies infections that are not treated almost always result in . By the time symptoms of rabies appear, it is usually too late for treatment to work. If you think you have been exposed to rabies, it is very important to talk with your healthcare provider right away. He or she will tell you whether you should be treated. How can I prevent rabies? If you don t take unnecessary risks, you don t need to be afraid of getting rabies. To avoid exposure: Don t handle wild animals or stray dogs or cats. Report strays and ill animals to animal control. Vaccinate your pets. Urge your neighbors to do the same. Try to limit your pets exposure to wild animals. If you are traveling to other countries, ask your healthcare provider or a travel clinic about vaccines you should have. When should I call my healthcare provider? Call your healthcare provider right away if you have any of these: A bite or scratch from a wild animal that has broken the skin. This might be from a raccoon or skunk. A bite or scratch from a pet animal that has broken the skin, and you cannot be sure that it has had a current rabies vaccine. You or your child may have been scratched or bitten by a bat. Bites and scratches from bats may notbe noticed, especially by children. 2959-1663 [employer]. [address] [place] [address]. All rights reserved. This information is not intended as a substitute for professional medical care. Always follow yourhealthcare professional's instructions. [facility] Rabies Follow-Up Vaccination Information Sheet SUMMARY After initial vaccination is received in ER (day 0), follow-up vaccinations are given on days 3, 7 and 14 for a total of 4 doses. You should have received a prescription that has the information for follow-up vaccinations (medication and dates). Bring this prescription with you wherever you choose to receive your follow-up vaccinations. OPTIONS FOR FOLLOW-UP VACCINATIONS Call your family physician to set up appointments to receive your follow-up rabies vaccinations. OR Call the [facility] at to schedule your follow-up vaccination appointments. Hours: 8a-4:30p, Wednesday through Wednesday OR Call [facility] to schedule your follow-up vaccination appointments. Additional Information VACCINATE! IT SAVES LIVES! Members of the community who have not yet received the COVID-19 vaccine and would like to receive it can visit one of [facility] vaccine clinics. There are many vaccine clinic locations within the State. For locations and available times, please visit [email or web address] It is important to note that some COVID mobile vaccine clinics are held outdoors and may be canceled in rainy or stormy conditions. To learn more about pediatric vaccinations (ages 5-11), we invite you to visit the [facility] webpage. [email or web address] learn more about the COVID-19 vaccine, we invite you to visit the CDC website for a list of frequently asked questions. https://www.cdc.gov/coronavirus/2019-ncov/vaccines/faq.html [facility] Patient Portal Access Instructions: Stay connected with your healthcare team and access your personal medical information anytime with the [facility] Patient Portal. If you would like a full copy of your medical records please contact the [facility] Medical Records Department Wednesday through Wednesday between 8a.m. and 4:30p.m. Please follow the directions below to access the portal: 1.Access the email account you provided upon registration to the hospital.2.Look for an invitation email from [facility].3.Open the email and access the invitation link: Accept Invitation to [facility]4.Fill in the required tirado to create your account. Sign into [email or web address] with your username and password that you created in the above steps to stay up to date. You can then view a summary of results, a summary of your visits, and the ability to download your summaries to your computer or send the information securely to a physician. Remember that your healthcare information is confidential, so carefully consider who you will allow to register on the [facility] Patient Portal for access to your information. You can also access the [facility] Patient Portal on the [employer] ricardo. Simply click on Health Records under [employer] and then click on the [employer] logo. HOW TO SAFELY DISPOSE OF PRESCRIPTION MEDICATIONS Please use one of the following methods to safely dispose of your unused medications. 1.Use a drug disposal kit: the drug disposal pouch allows you to safely discard your old and unuseddrugs. Ask your nurse to give you one when you are discharged.2.Visit a local take-back location: Many local pharmacies and police departments have programs that collect old and unwanted prescriptiondrugs. Call your local pharmacy or go to http://[employer].ly/0H0Xr3d to find one close to you.3.Make use of household items: Use cat litter or old coffee grounds to dispose medications if other options arenot available. Mix your drugs with these household products, seal them in an airtight container andthrow it into the garbage. Call [facility]: [phone] to be sure your drugs can be disposed of in this way. Some medicines may require a different approach.4.Never flush your medications down the toilet. IF YOU HAVE BEEN PRESCRIBED AN OPIOIDS FOR PAIN If you have been prescribed an opioid (such as hydrocodone, oxycodone or morphine), it is critical to understand the possible side effects and risks of opioid pain medications. Even when taken as directed, opioids can have several side effects including: Tolerance, meaning you might need to take more of a medication for the same pain relief. Nausea, vomiting and/or constipation. Sleepiness, dizziness, dry mouth, confusion, depression or itching. Physical dependence, meaning you have withdrawal symptoms when a medication is stopped ? this can develop within a few days. KNOW YOUR RESPONSIBILITIES It is important to know exactly how much and how often to take the opioid pain medications you are prescribed. Never take opioids in higher amounts or more often than prescribed. Do not combine opioids with alcohol or other drugs that cause drowsiness, such as benzodiazepines, also known as benzos,including diazepam and alprazolam, muscle relaxants or sleep aids. Never sell or share prescriptionopioids. This is illegal. Store opioids in a secure place and out of reach of others (including children, family, friends and visitors). The last page(s) of this document has been signed and retained as a CHART COPY Signatures Patient Education Materials Understanding Rabies 9- AO ED Rabies Follow-up Vaccination ISAAK(CUSTOM) Medication Leaflets My discharge plan and instructions have been reviewed and explained to me and I,MANSI CARO understand my current condition and have read and understand these discharge instructions. I have received a written copy of the plan/instructions. If I have questions, I am aware that I should contact my doctor. 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 Caro for follow-up today. As you know she is a 68 year old right-handed female with a history of left hand tremor since 2021. She is seen alone. We had a visit using: [employer] I have communicated my name and active licensure. The patient's identity and physical location wereverified at the time of this visit. Either the patient or their legal sales representative malt liquors has been informed of the risks and benefits of -- and alternatives to -- treatment through a remote evaluation andconsents to proceed with the evaluation remotely. I have communicated my name and active licensure. The patient's identity and physical location wereverified at the time of this visit. Either the patient or their legal sales representative malt liquors has been informed of the risks and benefits of -- and alternatives to -- treatment through a remote evaluation andconsents to proceed with the evaluation remotely. Subjective HISTORY OF PRESENT ILLNESS: During her previous visit the following plan was made: Previous plan-10/12/2022 Visit: Please let me know which medication you start Follow up in person in around 8 months with possible virtual in between Left hand has been about the same. Was on baclofen which helped spasticity but caused her to becomeloopy so the dose was lowered. Also has fatigue and instead of taking 2 baclofen at a time it's being spaced out, as well as other medications. Also having stomach cramps and bowel issues. Sinemet was stopped because it was making her sleepy. Has good days and bad days and not sure what can cause this. Questionnaires: In addition, the following areas that may be affected by abnormal involuntary movements were evaluated: Daily activities Difficulties with eating: Yes (mild) Difficulties in dressing: Yes (slight) Difficulties with hygiene activities: Yes (slight) Difficulties with handwriting: Difficulties with doing hobbies and other activities: 0 (none) Difficulties turning in bed: 0 (none) Difficulties getting out of bed, car or chair: Yes (slight) Tremors/Gait/Balance Shaking or tremors: Yes (mild) Walking and balance problems: Yes (slight) Number of falls in the Last Month: 0 Gait freezin (none) Autonomic/Pain Lightheadeness on standing: Yes (mild) Urinary problems: Yes (mild) Constipation problems: Yes (mild) Pain and other sensations: Yes (moderate) Speech/Swallowing Speech problems: Yes (slight) Droolin (none) Chewing and swallowing problems: 0 (none) Sleep/Fatigue Sleep problems: Yes (mild) Has trouble falling asleep. Spends 10-12 hours in bed and is up 3-4 times per night but falls asleep quickly. Trazodone was recently changed to as needed and melatonin was started on a daily basis. Does not snore loudly or breathe irregular at night Daytime sleepiness: Yes (mild) Fatigue: Yes (moderate) Mood/Behavior Depression: PHQ-9 Score: 17 usually representing moderately severe (15-19) depression. Anxiety: JENNY-7 Total Score: 8 usually representing mild (5-9) anxiety. Finally, the following table shows the patient's overall global physical and mental health using the PROMIS scale: PROMIS-10 Flowsheet Row Office Visit from 05/12/2023 in [facility] Health from 10/12/2022 in [facility] Global Physical Health T Score 32.4 39.8 Global Mental Health T Score 33.8 33.8 0-10 Standard Pain Scale 4 4 *PROMIS-10 scoring scale: mean = 50, over 50 is above average, under 50 is below average ALLERGIES Allergen Reactions Lipitor [Atorvastat* Heart racing; 07/04/10 patient states that she had started a lot of medication at this time and the she did not have a true allergic reaction and is willing to rechallenge HERVE MARIN Current Outpatient Medications Medication Sig baclofen (LIORESAL) 5 mg tablet 1 tab am, midday and 2 tab hs. Do not abruptly stop if at high dose, risk for withdrawal seizures. carbidopa-levodopa (SINEMET) 25-100 mg per tablet Take 1.5 tablets by mouth three times daily. Start with 0.5 tablet 3 times a day. After 7 days increase to 1 tablet 3 times a day. After 7 more days increase to 1.5 tablet 3 times a day and continue on that dose. Take with meals and avoid taking with iron supplements carvedilol (COREG) 3.125 mg tablet 3.125 mg. clonazePAM (KLONOPIN) 1 mg tablet Take 1 mg by mouth daily at bedtime. furosemide (LASIX) 20 mg tablet as needed. spironolactone (ALDACTONE) 25 mg tablet 12.5 mg every other day. traZODone (DESYREL) 50 mg tablet Take 50 mg by mouth as needed. Iron 18 mg tab Take by mouth. sacubitril-valsartan (ENTRESTO) 24-26 mg tablet Take 1 tablet by mouth twice daily. BABY ASPIRIN ORAL Take 81 mg by mouth every other day. glipiZIDE-metFORMIN (METAGLIP) 2.5-250 mg tablet Take 1 tablet by mouth twice daily before meals. oxybutynin (DITROPAN) 5 mg/5 mL syrup Take 5 mg by mouth every other day. pantoprazole DR (PROTONIX) 40 mg tablet Take 1 tablet by mouth twice daily. metFORMIN (GLUCOPHAGE) 500 mg tablet Take 1 tablet by mouth twice daily. rosuvastatin (CRESTOR) 5 mg ORAL Tab 1 qd No current facility-administered medications for this visit. Objective Physical Examination: General: Awake, alert, interactive, no acute distress, good nutritional status, normal development,well-kept Neurological Examination: Awake, alert, oriented. Able to connect to virtual platform and provide an accurate history Right eye ptosis Cranial nerves grossly intact, right facial palsy Mild right bradykinesia without decrement, left slight bradykinesia with some decrement Mild left postural tremor, slight distal tremor Able to move extremities spontaneously without any apparent weakness No bradykinesia or abnormal involuntary movements Exam limited by virtual platform Pertinent Studies MRI brain (2008): Evolving subacute infarcts in the left frontal, parietal, and supra occipital regions. No recent brain scans. Assessment Ms. 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 Plan of care was to discontinue Abilify and observe for symptom resolution. One year later, there has been significant reduction of symptoms, but tremor still persists, suggesting that there may have been unmasking of very early primary parkinsonism. Given reaction to Sinemet, Clemencia scan is the best plan of care. If positive will consider more aggressive levodopa replacement. 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 Not currently Thank you for allowing me to be part of the clinical care of this patient! I look forward to continued participation in the patient s care with you. Please do not hesitate to call with any questions. Sincerely, Sherif Ramirez MD Associate Staff [facility] documented in this encounterGreene [facility] Note* Exam Date Time Procedure Performing Provider Status 06/09/23 12:53 PM Echocardiogram, Adult ([facility]) Auth (Verified) [facility] 06-26-2023 Miscellaneous Notes* Telephone Encounter - Cheri Castillo RN - 05/17/2023 3:27 PM EDT This was approved Called left message on identified VM of Beatrice that this was approved and to check with [facility] pharmacy Called [facility] pharmacy, talked with Orquidea and then Rubina They did get it to go through for 120 tablets as prescribed Will fill for patient * Telephone Encounter - Humaira Wetzel - 05/17/2023 12:19 PM EDT Patient last seen on 05/12/23 Mr. Pena called on his Mansi Caro's behalf about the baclofen 5 mg. medication needingprior authorization because of the increase quantity from 2 pills to 4 pills per day. She will be out of her medication on Wed., 05/19/23 documented in this encounterGreene [facility] Hospital06-26-2023 Miscellaneous Notes* Telephone Encounter - Cheri Castillo RN - 05/17/2023 11:16 AM EDT Images from the original note were not included. * Telephone Encounter - Janee Argueta RN - 05/14/2023 10:48 AM EDT A PA has been submitted via Covermymeds Insurance Company Name:[employer] Phone Number: Patient ID number: [id number] Medication: Baclofen Dosage: 5mg Rios:[id number] PA Janee Argueta RN documented in this encounterGreene [facility] Hospital06-23-2023 Miscellaneous Notes* Telephone Encounter - Janee Argueta RN - 05/14/2023 11:17 AM EDT PA submitted via covermymeds. Janee Argueta RN * Telephone Encounter - Ghazala Gusman MD - 05/14/2023 8:56 AM EDT I'll forward to Janee su PA * Telephone Encounter - Humaira Wetzel - 05/13/2023 4:43 PM EDT [facility] Pharmacy was called and the pharmacist suggested a medication prior authorization for the 4 pills per day. The insurance company is absurd. * Telephone Encounter - Ghazala Gusman MD - 05/13/2023 3:51 PM EDT What??? That is absurd- 3.6 pills is a new one. Tell them how would they decide to do 3.6 pills, I will be interested to hear * Telephone Encounter - Humaira Wetzel - 05/12/2023 4:09 PM EDT Patient last seen on 05/12/23 Last refill on 05/12/23 The insurance company will only cover 3.6 pills per day and not 4 pills per day. Patient phones requesting refills as follows: Requested Prescriptions Pending Prescriptions Disp Refills baclofen (LIORESAL) 5 mg tablet [Pharmacy Med Name: BACLOFEN 5 MG TABLET] 120 tablet 5 Sig: PLEASE SEE ATTACHED FOR DETAILED DIRECTIONS Please review and advise. Humaira Wetzel documented in this encounterGreene [facility] Hospital06-21-2023 History of Present illness Narrative* Ghazala Gusman MD - 05/12/2023 3:00 PM EDT Rehabilitation Medicine F/u patient May 12, 2023 Last seen June 04, 2022 The patient was seen for f/u today. Recall, the patient is a 68 yo woman with PMH possible baseline CP, anxiety, depression, HTN, HPL, smoker, stroke left MCA 2008 with left M2 thrombus with 2/2 spasticity right HF/hip add/KF, but morein the distal aspects PF and D4/5 toe flexors, less so hip and KFs. She has element of dynamic spasticity with gait with right foot going into PF and flexor toe curling . 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 HEAD BELLHOP CAPTAIN D placed on 05/12/22. Ongoing issues: Feeling loopy with baclofen with dose increase but helped with hand . Was on 10mg tid, just reduced to 5mg bid and 10mg hs. And going to see how reacts. Seen recently by PCP TFTs are going to be checked d/t fatigue Recent dentist and eye doctor visits. No new N/T weakness. Paternal GM had tremors. spaticity does better with qid rather than tid and she is interested back to qid Current Outpatient Medications Medication Sig baclofen (LIORESAL) 5 mg tablet Take 2 tablets by mouth three times daily. Do not abruptly stop if at high dose, risk for withdrawal seizures. clonazePAM (KLONOPIN) 1 mg tablet Take 1 mg by mouth daily at bedtime. furosemide (LASIX) 20 mg tablet as needed. spironolactone (ALDACTONE) 25 mg tablet 12.5 mg every other day. traZODone (DESYREL) 50 mg tablet Take 50 mg by mouth as needed. Iron 18 mg tab Take by mouth. sacubitril-valsartan (ENTRESTO) 24-26 mg tablet Take 1 tablet by mouth twice daily. BABY ASPIRIN ORAL Take 81 mg by mouth every other day. oxybutynin (DITROPAN) 5 mg/5 mL syrup Take 5 mg by mouth every other day. pantoprazole DR (PROTONIX) 40 mg tablet Take 1 tablet by mouth twice daily. metFORMIN (GLUCOPHAGE) 500 mg tablet Take 1 tablet by mouth twice daily. rosuvastatin (CRESTOR) 5 mg ORAL Tab 1 qd carbidopa-levodopa (SINEMET) 25-100 mg per tablet Take 1.5 tablets by mouth three times daily. Start with 0.5 tablet 3 times a day. After 7 days increase to 1 tablet 3 times a day. After 7 more days increase to 1.5 tablet 3 times a day and continue on that dose. Take with meals and avoid taking with iron supplements carvedilol (COREG) 3.125 mg tablet 3.125 mg. ARIPiprazole (ABILIFY) 2 mg tablet Take 2 mg by mouth once daily. glipiZIDE-metFORMIN (METAGLIP) 2.5-250 mg tablet Take 1 tablet by mouth twice daily before meals. No current facility-administered medications for this visit. ALLERGIES Allergen Reactions Lipitor [Atorvastat* Heart racing; 07/04/10 patient states that she had started a lot of medication at this time and the she did not have a true allergic reaction and is willing to rechallenge HERVE RN PAST MEDICAL HISTORY Diagnosis Date Anxiety state, unspecified Chronic depressive personality disorder Depression Hyperlipidemia PMH - PAST MEDICAL HISTORY OF ? epilepsy Smoking Stroke (HCC) Unspecified essential hypertension Essential hypertension PAST SURGICAL HISTORY Procedure Laterality Date COLONOSCOPY FLX DX W/COLLJ SPEC WHEN PFRMD 02/21/15 Colonoscopy ERCP DX COLLECTION SPECIMEN BRUSHING/WASHING 11/20/14 Cholangiopancreatography (ERCP) with sphincterotomy and stone removal LAPAROSCOPY SURG CHOLECYSTECTOMY 11/21/14 FAMILY HISTORY Problem Relation Age of Onset Coronary Artery Disease Father Social History Tobacco Use Smoking status: Former Packs/day: 1.50 Years: 45.00 Pack years: 67.50 Types: Cigarettes Quit date: 12/23/2008 Years since quittin.3 Smokeless tobacco: Never Substance Use Topics Alcohol use: No ROS: GENERAL: Denies fever, chills malaise and weight loss. HEENT: No recent change in vision or hearing. CARDIOVASCULAR: Denies chest pain, history of A-fib, valvular disease, or pacemaker/ICD. RESPIRATORY: Denies SOB, sputum production, and hemoptysis. GI: Denies GI ulcers, inflammatory disease, or liver disease. : Denies change in frequency or urgency, kidney disease, and burning with urination. MUSCULOSKELETAL: see hpi SKIN: Denies rash or itching. PSYCHOLOGICAL: see above NEURO: see hpi ENDOCRINE: Denies diabetes, thyroid disease. HEMATOLOGY/LYMPHOLOGY: Denies cancer, bleeding or clotting disorders, anemia,and DVT's. ALLERGIC/IMMUNOLOGICAL: see hpi On exam: BP 102/57 (BP Site: Right Arm, BP Position: Sitting, BP Cuff Size: Regular Adult) Pulse 73 Resp20 Ht 172.7 cm (5' 8) Wt 62.1 kg (137 lb) SpO2 97% BMI 20.83 kg/m Alert, and oriented. Language eval notes no dysarthria. present Tremor left hand about 3 Hz Pill rolling quality. Better with activity in the left hand IMPRESSION and PLAN: 68 yo woman with PMH anxiety, depression, HTN, HPL, smoker, stroke with spasticity right HF/hip add/KF, but more in the distal aspects PF and D4/5 toe flexors, less so hip and KFs. She had element ofdynamic spasticity with gait with right foot going into PF and flexor toe curling - this much better baclofen but needing to adjust the dosing d/t loopy, now trying at 5mg bid and 10mg hs. F/u 6-12 months Patient understands above plan; questions asked and answered. Medication options, including side effects, were discussed in detail. Education was given regarding signs and symptoms that would indicate a serious change in condition, and they were instructed to seek care immediately should these arise. Patient agrees to plan as noted above. These notes are used for the purpose of medical documentation and that for use for other medical providers. Jargon expressed here is intentioned for use under this context. Ghazala Gusman MD I spent a total of 30 minutes on the date of the service which included preparing to see the patient, [id number] patient care, completing clinical documentation, performing a medically appropriate examination, counseling and educating the patient/family/caregiver, and ordering medications, tests,or procedures. documented in this encounterGreene [facility] Hospital06-21-2023 Nurse Note* Janee Argueta RN - 05/12/2023 1:24 PM EDT Patient presents for spasticity on right side The following tests/records were reviewed:no Do you need any refills today from the doctor?yes Janee Argueta RN documented in this encounterGreene Memorial Hospital12-15-2022 Miscellaneous Notes* Telephone Encounter - Jelly Gomez RN - 11/05/2022 4:26 PM EST Called and spoke with Song, Mrs. Caro's , and went over Dr. Gusman's message below. He verbalized understanding and will start new dosage of baclofen once he picks up the new script. No questions or concerns at this time, but he will reach out to us if needed Jelly Gomez RN November 05, 2022 4:27 PM * Telephone Encounter - Ghazala Gusman MD - 11/05/2022 3:36 PM EST Will increase to 10mg tid for now and see how responds. * Telephone Encounter - Jelly Gomez RN - 10/12/2022 2:46 PM EST Patient's partner is requesting increase in Baclofen or change of medication for spasticity. Pleaseadvise Jelly Gomez RN October 12, 2022 2:48 PM MELLISSA: 06/04/2022 IMPRESSION and PLAN: 67 yo woman with PMH anxiety, depression, HTN, HPL, smoker, stroke with spasticity right HF/hip add/KF, but more in the distal aspects PF and D4/5 toe flexors, less so hip and KFs. She has element ofdynamic spasticity with gait with right foot going into PF and flexor toe curling . Baclofen 5mg tid but better controlled at qid (decreased on her own before) but interested at qid as better controlled and re ordered with 6 month supply. Her BPs on the low side, so zanaflex not the first choice, but can consider low dose zanaflex if not abi or SE, but consider her BPs and would need to avoid high dosing Given this newer left hand tremor, does not look like essential tremor, possible parkinsonian in appearance. On many meds, but if medication effect, would expect more to be b/l Will have see movement disorder for eval. F/u 6-12 months * Telephone Encounter - Humaira Wetzel - 10/12/2022 2:09 PM EST Patient last seen on 06/04/2022 Mr. Pena called on his 's behalf, Ms. Caro because the baclofen is not working as well as it was before. She is taking baclofen 5 mg tablet qid (4x per day). This is for her spasticity s/pstroke mainly the achilles tendon. He is asking if you would recommend to increase the baclofen or change to a different medication. He is aware of Dr. Gusman being out of the office until 10/26/2022. He said, This can wait until she returns. [facility] History of Present illness Narrative* Sherif Ramirez MD - 10/12/2022 1:45 PM EST [facility] - FOLLOW UP EVALUATION Jesus Manuel Freitas, DO, DO [address] [facility] [id number] Freitas, I had the pleasure of seeing Ms. Caro for follow-up today. As you know she is a 67 year old right-handed female with a history of left hand tremor since 2021. She is seen alone. We had a visit using: [employer] I received consent from the patient to perform the visit using this platform. Subjective HISTORY OF PRESENT ILLNESS: During her previous visit the following plan was made: Previous plan-08/10/2022 Visit: Please stop Sinemet. You can remove the morning dose starting tomorrow, and 1 week later you can stop taking medication. Please not to see whether symptoms of parkinsonism or cramps improve or worsenwhen you do this Stop Abilify as this is a likely cause for your symptoms. Recommend bupropion as an alternative Try Vitamin B12 complex for muscle cramps. Tonic water at bedtime can also help Follow up in September as scheduled before Questionnaires: In addition, the following areas that may be affected by abnormal involuntary movements were evaluated: Daily activities Difficulties with eatin (none) Difficulties in dressing: Yes (mild) Difficulties with hygiene activities: Yes (mild) Difficulties with handwriting: Yes (mild) Difficulties with doing hobbies and other activities: Yes (mild) Difficulties turning in bed: 0 (none) Difficulties getting out of bed, car or chair: Yes (slight) Tremors/Gait/Balance Shaking or tremors: Yes (mild) Walking and balance problems: Yes (slight) Number of falls in the Last Month: 0 Gait freezin (none) Autonomic/Pain Lightheadeness on standing: Yes (slight) Urinary problems: Yes (slight) Constipation problems: 0 (none) Pain and other sensations: Yes (mild) Speech/Swallowing Speech problems: Yes (slight) Drooling: Yes (mild) Chewing and swallowing problems: 0 (none) Sleep/Fatigue Sleep problems: Yes (slight) Daytime sleepiness: Yes (slight) Fatigue: Yes (moderate) In addition, the following Parkinson Lifestyle-associated features were evaluated: Conditions Prior to Dx: Depression: Yes Anxiety: Yes Melanoma: No Constipation: No Yelling: No Head Trauma: No Mood/Behavior Depression: PHQ-9 Score: 8 usually representing mild (5-9) depression. Anxiety: JENNY-7 Total Score: 5 usually representing mild (5-9) anxiety. Finally, the following table shows the patient's overall global physical and mental health using the PROMIS scale: PROMIS-10 Flowsheet Row Appointment from 10/12/2022 in [facility] from 08/10/2022 in [facility] Global Physical Health T Score 39.8 37.4 Global Mental Health T Score 33.8 31.3 0-10 Standard Pain Scale 4 3 *PROMIS-10 scoring scale: mean = 50, over 50 is above average, under 50 is below average ALLERGIES Allergen Reactions Lipitor [Atorvastat* Heart racing; 07/04/10 patient states that she had started a lot of medication at this time and the she did not have a true allergic reaction and is willing to rechallenge [facility] Current Outpatient Medications Medication Sig carbidopa-levodopa (SINEMET) 25-100 mg per tablet Take 1.5 tablets by mouth three times daily. Start with 0.5 tablet 3 times a day. After 7 days increase to 1 tablet 3 times a day. After 7 more days increase to 1.5 tablet 3 times a day and continue on that dose. Take with meals and avoid taking with iron supplements clopidogrel (PLAVIX) 75 mg tablet Take 75 mg by mouth once daily. carvedilol (COREG) 3.125 mg tablet 3.125 mg. clonazePAM (KLONOPIN) 1 mg tablet Take 1 mg by mouth daily at bedtime. furosemide (LASIX) 20 mg tablet spironolactone (ALDACTONE) 25 mg tablet 12.5 mg. traZODone (DESYREL) 50 mg tablet Take 50 mg by mouth. Iron 18 mg tab Take by mouth. sacubitril-valsartan (ENTRESTO) 24-26 mg tablet Take 1 tablet by mouth twice daily. baclofen (LIORESAL) 5 mg tablet Take 1 tablet by mouth four times daily. Do not abruptly stop if athigh dose, risk for withdrawal seizures. ARIPiprazole (ABILIFY) 2 mg tablet Take 2 mg by mouth once daily. BABY ASPIRIN ORAL Take 81 mg by mouth. glipiZIDE-metFORMIN (METAGLIP) 2.5-250 mg tablet Take 1 tablet by mouth twice daily before meals. oxybutynin (DITROPAN) 5 mg/5 mL syrup Take 5 mg by mouth twice daily. pantoprazole DR (PROTONIX) 40 mg tablet Take 1 tablet by mouth twice daily. metFORMIN (GLUCOPHAGE) 500 mg tablet Take 1 tablet by mouth twice daily. rosuvastatin (CRESTOR) 5 mg ORAL Tab 1 qd No current facility-administered medications for this visit. Objective Physical Examination: General: Awake, alert, interactive, no acute distress, good nutritional status, normal development,well-kept Neurological Examination: Awake, alert, oriented. Able to connect to virtual platform and provide an accurate history Depressed affect, minimal speech Cranial nerves grossly intact Hypomimia, hypophonia Able to move extremities spontaneously without any apparent weakness Left upper extremity mild postural tremor Exam limited by virtual platform Pertinent Studies MRI brain (2008): Evolving subacute infarcts in the left frontal, parietal, and supra occipital regions. No recent brain scans. Assessment Ms. Caro is a right-handed 67 year old female with 6-month history of rest tremor of the left hand and parkinsonism in the setting of antipsychotic use. The following are the current problems noted and addressed during this visit: Tremor of left hand Plan 10/12/2022 Visit: Please let me know which medication you start Follow up in person in around 8 months with possible virtual in between Interested in clinical research? Not currently Level of service : 36930 (10-19 min). Time spent 15 min on the day of service, which included preparing to see the patient, [id number] patient care, completing clinical documentation, obtaining and/or reviewing separately obtained history, performing a medically appropriate examination, and counseling and educating the patient/family/caregiver. Thank you for allowing me to be part of the clinical care of this patient! I look forward to continued participation in the patient s care with you. Please do not hesitate to call with any questions. Sincerely, Sherif Ramirez MD Associate Staff [facility] Hospital Discharge instructions Patient Education 08/19/2022 23:45:42 Bladder Infection, Female (Adult) Bladder Infection, Female (Adult) Urine is normally doesn't have any bacteria in it. But bacteria can get into the urinary tract fromthe skin around the rectum. Or they can travel in the blood from elsewhere in the body. Once they are in your urinary tract, they can cause infection in the urethra (urethritis), the bladder (cystitis), or the kidneys (pyelonephritis). The most common place for an infection is in the bladder. This is called a bladder infection. This is one of the most common infections in women. Most bladder infections are easily treated. They are not serious unless the infection spreads to the kidney. The phrases bladder infection, UTI, and cystitis are often used to describe the same thing. But they are not always the same. Cystitis is an inflammation of the bladder. The most common cause of cystitis is an infection. Symptoms The infection causes inflammation in the urethra and bladder. This causes many of the symptoms. Themost common symptoms of a bladder infection are: Pain or burning when urinating Having to urinate more often than usual Urgent need to urinate Only a small amount of urine comes out Blood in urine Abdominal discomfort. This is usually in the lower abdomen above the pubic bone. Cloudy urine Strong- or bad-smelling urine Unable to urinate (urinary retention) Unable to hold urine in (urinary incontinence) Fever Loss of appetite Confusion (in older adults) Causes Bladder infections are not contagious. You can't get one from someone else, from a toilet seat, or from sharing a bath. The most common cause of bladder infections is bacteria from the bowels. The bacteria get onto the skin around the opening of the urethra. From there, they can get into the urine and travel up to thebladder, causing inflammation and infection. This usually happens because of: Wiping improperly after urinating. Always wipe from front to back. Bowel incontinence Procedures such as having a catheter inserted Older age Not emptying your bladder. This can allow bacteria a chance to grow in your urine. Dehydration Constipation Sex Use of a diaphragm for control Treatment Bladder infections are diagnosed by a urine test. They are treated with antibiotics and usually clear up quickly without complications. Treatment helps prevent a more serious kidney infection. Medicines Medicines can help in the treatment of a bladder infection: Take antibiotics until they are used up, even if you feel better. It is important to finish them tomake sure the infection has cleared. You can use acetaminophen or ibuprofen for pain, fever, or discomfort, unless another medicine was prescribed. If you have chronic liver or kidney disease, talk with your healthcare provider before using these medicines. Also talk with your provider if you've ever had a stomach ulcer or gastrointestinal bleeding, or are taking blood-thinner medicines. If you are given phenazopydridine to reduce burning with urination, it will cause your urine to become a bright orange color. This can stain clothing. Care and prevention These self-care steps can help prevent future infections: Drink plenty of fluids to prevent dehydration and flush out your bladder. Do this unless you must restrict fluids for other health reasons, or your doctor told you not to. Proper cleaning after going to the bathroom is important. Wipe from front to back after using the toilet to prevent the spread of bacteria. Urinate more often. Don't try to hold urine in for a long time. Wear loose-fitting clothes and cotton underwear. Avoid tight-fitting pants. Improve your diet and prevent constipation. Eat more fresh fruit and vegetables, and fiber, and less junk and fatty foods. Avoid sex until your symptoms are gone. Avoid caffeine, alcohol, and spicy foods. These can irritate your bladder. Urinate right after intercourse to flush out your bladder. If you use control pills and have frequent bladder infections, discuss it with your doctor. Follow-up care Call your healthcare provider if all symptoms are not gone after 3 days of treatment. This is especially important if you have repeat infections. If a culture was done, you will be told if your treatment needs to be changed. If directed, you cancall to find out the results. If X-rays were done, you will be told if the results will affect your treatment. Call 911 Call 911 if any of the following occur: Trouble breathing Hard to wake up or confusion Fainting or loss of consciousness Rapid heart rate When to seek medical advice Call your healthcare provider right away if any of these occur: Fever of 100.4 F (38.0 C) or higher, or as directed by your healthcare provider Symptoms are not better by the third day of treatment Back or belly (abdominal) pain that gets worse Repeated vomiting, or unable to keep medicine down Weakness or dizziness Vaginal discharge Pain, redness, or swelling in the outer vaginal area (labia) [id number] [employer]. [address] [place] [address]. All rights reserved. This information is not intended as a substitute for professional medical care. Always follow yourhealthcare professional's instructions. 08/19/2022 23:45:39 Dizziness, Uncertain Cause Dizziness (Uncertain Cause) Dizziness is a common symptom. It may be described as lightheadedness, spinning, or feeling like you are going to faint. Dizziness can have many causes. Be sure to tell the healthcare provider about: All medicines you take, including prescription, [id number], herbs, and supplements Any other symptoms you have Any health problems you are being treated for Any past major health problems you've had, such as a heart attack, balance issues, hearing problems, or blood pressure problems Anything that causes the dizziness to get worse or better Today's exam did not show an exact cause for your dizziness. Other tests may be needed. Follow up with your healthcare provider. Home care Dizziness that occurs with sudden standing may be a sign of mild dehydration. Drink extra fluids for the next few days. If you recently started a new medicine, stopped a medicine, or had the dose of a current medicine changed, talk with the prescribing healthcare provider. Your medicine plan may need adjustment. If dizziness lasts more than a few seconds, sit or lie down until it passes. This may help prevent injury in case you pass out. Get up slowly when you feel better. Don't drive or use power tools or dangerous equipment until you have had no dizziness for at least 48 hours. Follow-up care Follow up with your healthcare provider for further evaluation within the next 7 days or as advised. When to seek medical advice Call your healthcare provider for any of the following: Worsening of symptoms or new symptoms Passing out or seizure Repeated vomiting Headache Palpitations (the sense that your heart is fluttering or beating fast or hard) Shortness of breath Blood in vomit or stool (black or red color) Weakness of an arm or leg or 1 side of the face Vision or hearing changes Trouble walking or speaking Chest, arm, neck, back, or jaw pain [id number] [employer]. [address] [place] [address]. All rights reserved. This information is not intended as a substitute for professional medical care. Always follow yourhealthcare professional's instructions. Follow Up Care 08/19/2022 14:59:40 With:LARY WHEAT DO Address: [address] [place] [phone] When:2-4 days [facility] 09-29-2022 Emergency department Discharge summary Discharge Instructions Thank you for allowing [facility] to assist you with your healthcare needs. The following is importantdischarge information regarding your hospital visit. Diagnosis from Today's Visit Generalized weakness Fatigue What to Do Next Instructions from Your Care Team No qualifying data available. Post Acute Orders No qualifying data available. You Need to Schedule the Following Appointments Follow Up with LARY WHEAT DO When Within 2-4 days Where: [address] [place] [phone] Allergies [facility] Medications Please ask your primary doctor or pharmacist before taking any other medication not listed, including over the counter drugs, herbal medications, vitamins and or supplements as they may interact withyour home medications. What How Much When Why Instructions Last Dose New cephalexin (cephalexin 500 mg oral capsule) 1 cap by mouth Four (4) times a day Generalized weakness Fatigue Duration: 7 Days Take with a probiotic Printed Prescription Unchanged ARIPiprazole (Abilify 2 mg oral tablet) 1 tab(s) by mouth Once a day Unchanged aspirin (aspirin 81 mg oral delayed release tablet) 1 tab(s) by mouth Once a day Unchanged baclofen (baclofen 5 mg oral tablet) 2 tab(s) by mouth Four (4) times a day Unchanged carbidopa-levodopa (carbidopa-levodopa 25 mg-100 mg oral tablet) 1.5 tab(s) by mouth Three (3) times a day Unchanged carbonyl iron (Iron Chews) See instructions 18 mcg gummy daily Unchanged carvedilol (carvedilol 3.125 mg oral tablet) 0.5 tab(s) by mouth Two (2) times a day Unchanged clonazePAM (clonazePAM 1 mg oral tablet) 1 tab(s) by mouth Daily at bedtime Eye twitch Duration: 30 Days Unchanged clopidogrel (Plavix 75 mg oral tablet) 1 tab(s) by mouth Once a day Unchanged empagliflozin (Jardiance 10 mg oral tablet) 1 tab(s) by mouth Once a day (in the morning) Unchanged furosemide (Lasix 20 mg oral tablet) See instructions 1 tab(s) Oral qDay on Wed, , Wed Unchanged glipiZIDE (glipiZIDE 2.5 mg oral tablet, extended release) 1 tab(s) by mouth Once a day with a meal Unchanged metFORMIN (metFORMIN 500 mg oral tablet EXTENDED RELEASE) 1 tab(s) by mouth Two (2) times a day Unchanged multivitamin with minerals (Celebrate Multivitamin oral tablet, chewable) 2 tab(s) Chewed Once a day Unchanged oxybutynin (oxybutynin 5 mg/ 24 hours oral tablet, extended release) 1 tab(s) by mouth Once a day Unchanged pantoprazole (pantoprazole 40 mg oral enteric coated tablet) 1 tab(s) by mouth Once a day Unchanged rosuvastatin (rosuvastatin 20 mg oral tablet) 1 tab(s) by mouth Once a day Unchanged sacubitril-valsartan (Entresto 24 mg-26 mg oral tablet) 1 tab(s) by mouth Two (2) times a day Unchanged spironolactone (spironolactone 25 mg oral tablet) 0.5 tab(s) by mouth Wednesday / Wednesday / Wednesday Unchanged traZODone (traZODone 50 mg oral tablet) 1 tab(s) by mouth Daily at bedtime Please take this list to your next doctor s visit. Bring all medications you take, including over the counter medications, herbals and other supplements with you to your doctor s visit. Patients and families are reminded to discard old lists and to update any records with all medication providers or retail pharmacies. Education Materials Bladder Infection, Female (Adult) Urine is normally doesn't have any bacteria in it. But bacteria can get into the urinary tract fromthe skin around the rectum. Or they can travel in the blood from elsewhere in the body. Once they are in your urinary tract, they can cause infection in the urethra (urethritis), the bladder (cystitis), or the kidneys (pyelonephritis). The most common place for an infection is in the bladder. This is called a bladder infection. This is one of the most common infections in women. Most bladder infections are easily treated. They are not serious unless the infection spreads to the kidney. The phrases bladder infection, UTI, and cystitis are often used to describe the same thing. But they are not always the same. Cystitis is an inflammation of the bladder. The most common cause of cystitis is an infection. Symptoms The infection causes inflammation in the urethra and bladder. This causes many of the symptoms. Themost common symptoms of a bladder infection are: Pain or burning when urinating Having to urinate more often than usual Urgent need to urinate Only a small amount of urine comes out Blood in urine Abdominal discomfort. This is usually in the lower abdomen above the pubic bone. Cloudy urine Strong- or bad-smelling urine Unable to urinate (urinary retention) Unable to hold urine in (urinary incontinence) Fever Loss of appetite Confusion (in older adults) Causes Bladder infections are not contagious. You can't get one from someone else, from a toilet seat, or from sharing a bath. The most common cause of bladder infections is bacteria from the bowels. The bacteria get onto the skin around the opening of the urethra. From there, they can get into the urine and travel up to thebladder, causing inflammation and infection. This usually happens because of: Wiping improperly after urinating. Always wipe from front to back. Bowel incontinence Procedures such as having a catheter inserted Older age Not emptying your bladder. This can allow bacteria a chance to grow in your urine. Dehydration Constipation Sex Use of a diaphragm for control Treatment Bladder infections are diagnosed by a urine test. They are treated with antibiotics and usually clear up quickly without complications. Treatment helps prevent a more serious kidney infection. Medicines Medicines can help in the treatment of a bladder infection: Take antibiotics until they are used up, even if you feel better. It is important to finish them tomake sure the infection has cleared. You can use acetaminophen or ibuprofen for pain, fever, or discomfort, unless another medicine was prescribed. If you have chronic liver or kidney disease, talk with your healthcare provider before using these medicines. Also talk with your provider if you've ever had a stomach ulcer or gastrointestinal bleeding, or are taking blood-thinner medicines. If you are given phenazopydridine to reduce burning with urination, it will cause your urine to become a bright orange color. This can stain clothing. Care and prevention These self-care steps can help prevent future infections: Drink plenty of fluids to prevent dehydration and flush out your bladder. Do this unless you must restrict fluids for other health reasons, or your doctor told you not to. Proper cleaning after going to the bathroom is important. Wipe from front to back after using the toilet to prevent the spread of bacteria. Urinate more often. Don't try to hold urine in for a long time. Wear loose-fitting clothes and cotton underwear. Avoid tight-fitting pants. Improve your diet and prevent constipation. Eat more fresh fruit and vegetables, and fiber, and less junk and fatty foods. Avoid sex until your symptoms are gone. Avoid caffeine, alcohol, and spicy foods. These can irritate your bladder. Urinate right after intercourse to flush out your bladder. If you use control pills and have frequent bladder infections, discuss it with your doctor. Follow-up care Call your healthcare provider if all symptoms are not gone after 3 days of treatment. This is especially important if you have repeat infections. If a culture was done, you will be told if your treatment needs to be changed. If directed, you cancall to find out the results. If X-rays were done, you will be told if the results will affect your treatment. Call 911 Call 911 if any of the following occur: Trouble breathing Hard to wake up or confusion Fainting or loss of consciousness Rapid heart rate When to seek medical advice Call your healthcare provider right away if any of these occur: Fever of 100.4 F (38.0 C) or higher, or as directed by your healthcare provider Symptoms are not better by the third day of treatment Back or belly (abdominal) pain that gets worse Repeated vomiting, or unable to keep medicine down Weakness or dizziness Vaginal discharge Pain, redness, or swelling in the outer vaginal area (labia) [employer]. [address] [place] [address]. All rights reserved. This information is not intended as a substitute for professional medical care. Always follow yourhealthcare professional's instructions. Dizziness (Uncertain Cause) Dizziness is a common symptom. It may be described as lightheadedness, spinning, or feeling like you are going to faint. Dizziness can have many causes. Be sure to tell the healthcare provider about: All medicines you take, including prescription, [id number], herbs, and supplements Any other symptoms you have Any health problems you are being treated for Any past major health problems you've had, such as a heart attack, balance issues, hearing problems, or blood pressure problems Anything that causes the dizziness to get worse or better Today's exam did not show an exact cause for your dizziness. Other tests may be needed. Follow up with your healthcare provider. Home care Dizziness that occurs with sudden standing may be a sign of mild dehydration. Drink extra fluids for the next few days. If you recently started a new medicine, stopped a medicine, or had the dose of a current medicine changed, talk with the prescribing healthcare provider. Your medicine plan may need adjustment. If dizziness lasts more than a few seconds, sit or lie down until it passes. This may help prevent injury in case you pass out. Get up slowly when you feel better. Don't drive or use power tools or dangerous equipment until you have had no dizziness for at least 48 hours. Follow-up care Follow up with your healthcare provider for further evaluation within the next 7 days or as advised. When to seek medical advice Call your healthcare provider for any of the following: Worsening of symptoms or new symptoms Passing out or seizure Repeated vomiting Headache Palpitations (the sense that your heart is fluttering or beating fast or hard) Shortness of breath Blood in vomit or stool (black or red color) Weakness of an arm or leg or 1 side of the face Vision or hearing changes Trouble walking or speaking Chest, arm, neck, back, or jaw pain [employer]. [address] [place] [address]. All rights reserved. This information is not intended as a substitute for professional medical care. Always follow yourhealthcare professional's instructions. Additional Information VACCINATE! IT SAVES LIVES! Members of the community who have not yet received the COVID-19 vaccine and would like to receive it can visit one of [facility] vaccine clinics. There are many vaccine clinic locations within the [facility]. For locations and available times, please visit [email or web address]. It is important to note that some COVID mobile vaccine clinics are held outdoors and may be canceled in rainy orstormy conditions. To learn more about pediatric vaccinations (ages 5-11), we invite you to visit the [facility] webpage. [email or web address] [email or web address].htmlTo learn more about the COVID-19 vaccine, we invite you to visit the [facility] website for a list of frequently asked questions. [email or web address] _[email or web address].pdf [facility] Patient Portal Access Instructions: Stay connected with your healthcare team and access your personal medical information anytime with the [facility] Patient Portal. If you would like a full copy of your medical records please contact the [facility] Medical Records Department Wednesday through Wednesday between 8a.m. and 4:30p.m. Please follow the directions below to access the portal: 1.Access the email account you provided upon registration to the hospital.2.Look for an invitation email from [facility].3.Open the email and access the invitation link: Accept Invitation to [email or web address].Fill in the required tirado to create your account. Sign into [email or web address] with your username and password that you created in the above steps to stay up to date. You can then view a summary of results, a summary of your visits, and the ability to download your summaries to your computer or send the information securely to a physician. Remember that your healthcare information is confidential, so carefully consider who you will allow to register on the [email or web address] Patient Portal for access to your information. You can also access the [email or web address] Patient Portal on the [employer]. Simply click on Health Records under [employer] and then click on the [employer] logo. HOW TO SAFELY DISPOSE OF PRESCRIPTION MEDICATIONS Please use one of the following methods to safely dispose of your unused medications. 1.Use a drug disposal kit: the drug disposal pouch allows you to safely discard your old and unuseddrugs. Ask your nurse to give you one when you are discharged.2.Visit a local take-back location: Many local pharmacies and police departments have programs that collect old and unwanted prescriptiondrugs. Call your local pharmacy or go to http://[employer].SeeVolution/8H4Ja2b to find one close to you.3.Make use of household items: Use cat litter or old coffee grounds to dispose medications if other options arenot available. Mix your drugs with these household products, seal them in an airtight container andthrow it into the garbage. Call [facility]: [phone] to be sure your drugs can be disposed of in this way. Some medicines may require a different approach.4.Never flush your medications down the toilet. IF YOU HAVE BEEN PRESCRIBED AN OPIOIDS FOR PAIN If you have been prescribed an opioid (such as hydrocodone, oxycodone or morphine), it is critical to understand the possible side effects and risks of opioid pain medications. Even when taken as directed, opioids can have several side effects including: Tolerance, meaning you might need to take more of a medication for the same pain relief. Nausea, vomiting and/or constipation. Sleepiness, dizziness, dry mouth, confusion, depression or itching. Physical dependence, meaning you have withdrawal symptoms when a medication is stopped ? this can develop within a few days. KNOW YOUR RESPONSIBILITIES It is important to know exactly how much and how often to take the opioid pain medications you are prescribed. Never take opioids in higher amounts or more often than prescribed. Do not combine opioids with alcohol or other drugs that cause drowsiness, such as benzodiazepines, also known as benzos,including diazepam and alprazolam, muscle relaxants or sleep aids. Never sell or share prescriptionopioids. This is illegal. Store opioids in a secure place and out of reach of others (including children, family, friends and visitors). The last page(s) of this document has been signed and retained as a CHART COPY Signatures Patient Education Materials Bladder Infection, Female (Adult) Dizziness, Uncertain Cause Medication Leaflets My discharge plan and instructions have been reviewed and explained to me and I,MIKHAILOFELIA MANSI Hema understand my current condition and have read and understand these discharge instructions. I have received a written copy of the plan/instructions. If I have questions, I am aware that I should contact my doctor. 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 The following is importantdischarge information regarding your hospital visit. Diagnosis from Today's Visit Generalized weakness Fatigue What to Do Next Instructions from Your Care Team No qualifying data available. Post Acute Orders No qualifying data available. You Need to Schedule the Following Appointments Follow Up with LARY WHEAT DO When Within 2-4 days Where: [address] [place] [address]- [phone] Allergies NKA Medications Please ask your primary doctor or pharmacist before taking any other medication not listed, including over the counter drugs, herbal medications, vitamins and or supplements as they may interact withur home medications. What How Much When Why Instructions Last Dose New cephalexin (cephalexin 500 mg oral capsule) 1 cap by mouth Four (4) times a day Generalized weakness Fatigue Duration: 7 Days Take with a probiotic Printed Prescription Unchanged ARIPiprazole (Abilify 2 mg oral tablet) 1 tab(s) by mouth Once a day Unchanged aspirin (aspirin 81 mg oral delayed release tablet) 1 tab(s) by mouth Once a day Unchanged baclofen (baclofen 5 mg oral tablet) 2 tab(s) by mouth Four (4) times a day Unchanged carbidopa-levodopa (carbidopa-levodopa 25 mg-100 mg oral tablet) 1.5 tab(s) by mouth Three (3) times a day Unchanged carbonyl iron (Iron Chews) See instructions 18 mcg gummy daily Unchanged carvedilol (carvedilol 3.125 mg oral tablet) 0.5 tab(s) by mouth Two (2) times a day Unchanged clonazePAM (clonazePAM 1 mg oral tablet) 1 tab(s) by mouth Daily at bedtime Eye twitch Duration: 30 Days Unchanged clopidogrel (Plavix 75 mg oral tablet) 1 tab(s) by mouth Once a day Unchanged empagliflozin (Jardiance 10 mg oral tablet) 1 tab(s) by mouth Once a day (in the morning) Unchanged furosemide (Lasix 20 mg oral tablet) See instructions 1 tab(s) Oral qDay on , Wed Unchanged glipiZIDE (glipiZIDE 2.5 mg oral tablet, extended release) 1 tab(s) by mouth Once a day with a meal Unchanged metFORMIN (metFORMIN 500 mg oral tablet EXTENDED RELEASE) 1 tab(s) by mouth Two (2) times a day Unchanged multivitamin with minerals (Celebrate Multivitamin oral tablet, chewable) 2 tab(s) Chewed Once a day Unchanged oxybutynin (oxybutynin 5 mg/ 24 hours oral tablet, extended release) 1 tab(s) by mouth Once a day Unchanged pantoprazole (pantoprazole 40 mg oral enteric coated tablet) 1 tab(s) by mouth Once a day Unchanged rosuvastatin (rosuvastatin 20 mg oral tablet) 1 tab(s) by mouth Once a day Unchanged sacubitril-valsartan (Entresto 24 mg-26 mg oral tablet) 1 tab(s) by mouth Two (2) times a day Unchanged spironolactone (spironolactone 25 mg oral tablet) 0.5 tab(s) by mouth Wednesday / Wednesday / Wednesday Unchanged traZODone (traZODone 50 mg oral tablet) 1 tab(s) by mouth Daily at bedtime Please take this list to your next doctor s visit. Bring all medications you take, including over the counter medications, herbals and other supplements with you to your doctor s visit. Patients and families are reminded to discard old lists and to update any records with all medication providers or retail pharmacies. Education Materials Bladder Infection, Female (Adult) Urine is normally doesn't have any bacteria in it. But bacteria can get into the urinary tract fromthe skin around the rectum. Or they can travel in the blood from elsewhere in the body. Once they are in your urinary tract, they can cause infection in the urethra (urethritis), the bladder (cystitis), or the kidneys (pyelonephritis). The most common place for an infection is in the bladder. This is called a bladder infection. This is one of the most common infections in women. Most bladder infections are easily treated. They are not serious unless the infection spreads to the kidney. The phrases bladder infection, UTI, and cystitis are often used to describe the same thing. But they are not always the same. Cystitis is an inflammation of the bladder. The most common cause of cystitis is an infection. Symptoms The infection causes inflammation in the urethra and bladder. This causes many of the symptoms. Themost common symptoms of a bladder infection are: Pain or burning when urinating Having to urinate more often than usual Urgent need to urinate Only a small amount of urine comes out Blood in urine Abdominal discomfort. This is usually in the lower abdomen above the pubic bone. Cloudy urine Strong- or bad-smelling urine Unable to urinate (urinary retention) Unable to hold urine in (urinary incontinence) Fever Loss of appetite Confusion (in older adults) Causes Bladder infections are not contagious. You can't get one from someone else, from a toilet seat, or from sharing a bath. The most common cause of bladder infections is bacteria from the bowels. The bacteria get onto the skin around the opening of the urethra. From there, they can get into the urine and travel up to thebladder, causing inflammation and infection. This usually happens because of: Wiping improperly after urinating. Always wipe from front to back. Bowel incontinence Procedures such as having a catheter inserted Older age Not emptying your bladder. This can allow bacteria a chance to grow in your urine. Dehydration Constipation Sex Use of a diaphragm for control Treatment Bladder infections are diagnosed by a urine test. They are treated with antibiotics and usually clear up quickly without complications. Treatment helps prevent a more serious kidney infection. Medicines Medicines can help in the treatment of a bladder infection: Take antibiotics until they are used up, even if you feel better. It is important to finish them tomake sure the infection has cleared. You can use acetaminophen or ibuprofen for pain, fever, or discomfort, unless another medicine was prescribed. If you have chronic liver or kidney disease, talk with your healthcare provider before using these medicines. Also talk with your provider if you've ever had a stomach ulcer or gastrointestinal bleeding, or are taking blood-thinner medicines. If you are given phenazopydridine to reduce burning with urination, it will cause your urine to become a bright orange color. This can stain clothing. Care and prevention These self-care steps can help prevent future infections: Drink plenty of fluids to prevent dehydration and flush out your bladder. Do this unless you must restrict fluids for other health reasons, or your doctor told you not to. Proper cleaning after going to the bathroom is important. Wipe from front to back after using the toilet to prevent the spread of bacteria. Urinate more often. Don't try to hold urine in for a long time. Wear loose-fitting clothes and cotton underwear. Avoid tight-fitting pants. Improve your diet and prevent constipation. Eat more fresh fruit and vegetables, and fiber, and less junk and fatty foods. Avoid sex until your symptoms are gone. Avoid caffeine, alcohol, and spicy foods. These can irritate your bladder. Urinate right after intercourse to flush out your bladder. If you use control pills and have frequent bladder infections, discuss it with your doctor. Follow-up care Call your healthcare provider if all symptoms are not gone after 3 days of treatment. This is especially important if you have repeat infections. If a culture was done, you will be told if your treatment needs to be changed. If directed, you cancall to find out the results. If X-rays were done, you will be told if the results will affect your treatment. Call 911 Call 911 if any of the following occur: Trouble breathing Hard to wake up or confusion Fainting or loss of consciousness Rapid heart rate When to seek medical advice Call your healthcare provider right away if any of these occur: Fever of 100.4 F (38.0 C) or higher, or as directed by your healthcare provider Symptoms are not better by the third day of treatment Back or belly (abdominal) pain that gets worse Repeated vomiting, or unable to keep medicine down Weakness or dizziness Vaginal discharge Pain, redness, or swelling in the outer vaginal area (labia) [phone] [employer]. [address] [place] [address]. All rights reserved. This information is not intended as a substitute for professional medical care. Always follow yourhealthcare professional's instructions. Dizziness (Uncertain Cause) Dizziness is a common symptom. It may be described as lightheadedness, spinning, or feeling like you are going to faint. Dizziness can have many causes. Be sure to tell the healthcare provider about: All medicines you take, including prescription, qwvt-svh-dadvnxy, herbs, and supplements Any other symptoms you have Any health problems you are being treated for Any past major health problems you've had, such as a heart attack, balance issues, hearing problems, or blood pressure problems Anything that causes the dizziness to get worse or better Today's exam did not show an exact cause for your dizziness. Other tests may be needed. Follow up with your healthcare provider. Home care Dizziness that occurs with sudden standing may be a sign of mild dehydration. Drink extra fluids for the next few days. If you recently started a new medicine, stopped a medicine, or had the dose of a current medicine changed, talk with the prescribing healthcare provider. Your medicine plan may need adjustment. If dizziness lasts more than a few seconds, sit or lie down until it passes. This may help prevent injury in case you pass out. Get up slowly when you feel better. Don't drive or use power tools or dangerous equipment until you have had no dizziness for at least 48 hours. Follow-up care Follow up with your healthcare provider for further evaluation within the next 7 days or as advised. When to seek medical advice Call your healthcare provider for any of the following: Worsening of symptoms or new symptoms Passing out or seizure Repeated vomiting Headache Palpitations (the sense that your heart is fluttering or beating fast or hard) Shortness of breath Blood in vomit or stool (black or red color) Weakness of an arm or leg or 1 side of the face Vision or hearing changes Trouble walking or speaking Chest, arm, neck, back, or jaw pain [id number] [employer]. [address] [place] [address]. All rights reserved. This information is not intended as a substitute for professional medical care. Always follow yourhealthcare professional's instructions. Additional Information VACCINATE! IT SAVES LIVES! Members of the community who have not yet received the COVID-19 vaccine and would like to receive it can visit one of [facility] vaccine clinics. There are many vaccine clinic locations within the [facility]. For locations and available times, please visit [email or web address]. It is important to note that some COVID mobile vaccine clinics are held outdoors and may be canceled in rainy orstormy conditions. To learn more about pediatric vaccinations (ages 5-11), we invite you to visit the [facility] webpage. [email or web address] learn more about the COVID-19 vaccine, we invite you to visit the [facility] website for a list of frequently asked questions. [email or web address] _[email or web address].pdf [facility] Patient Portal Access Instructions: Stay connected with your healthcare team and access your personal medical information anytime with the [facility] Patient Portal. If you would like a full copy of your medical records please contact the [facility] Medical Records Department Wednesday through Wednesday between 8a.m. and 4:30p.m. Please follow the directions below to access the portal: 1.Access the email account you provided upon registration to the hospital.2.Look for an invitation email from [facility].3.Open the email and access the invitation link: Accept Invitation to [facility]4.Fill in the required tirado to create your account. Sign into [email or web address] with your username and password that you created in the above steps to stay up to date. You can then view a summary of results, a summary of your visits, and the ability to download your summaries to your computer or send the information securely to a physician. Remember that your healthcare information is confidential, so carefully consider who you will allow to register on the [facility] Patient Portal for access to your information. You can also access the [facility] Patient Portal on the [employer]. Simply click on Health Records under [employer] and then click on the [employer] logo. HOW TO SAFELY DISPOSE OF PRESCRIPTION MEDICATIONS Please use one of the following methods to safely dispose of your unused medications. 1.Use a drug disposal kit: the drug disposal pouch allows you to safely discard your old and unuseddrugs. Ask your nurse to give you one when you are discharged.2.Visit a local take-back location: Many local pharmacies and police departments have programs that collect old and unwanted prescriptiondrugs. Call your local pharmacy or go to http://[employer].SeeVolution/3S7Eu4o to find one close to you.3.Make use of household items: Use cat litter or old coffee grounds to dispose medications if other options arenot available. Mix your drugs with these household products, seal them in an airtight container andthrow it into the garbage. Call [facility]: [phone] to be sure your drugs can be disposed of in this way. Some medicines may require a different approach.4.Never flush your medications down the toilet. IF YOU HAVE BEEN PRESCRIBED AN OPIOIDS FOR PAIN If you have been prescribed an opioid (such as hydrocodone, oxycodone or morphine), it is critical to understand the possible side effects and risks of opioid pain medications. Even when taken as directed, opioids can have several side effects including: Tolerance, meaning you might need to take more of a medication for the same pain relief. Nausea, vomiting and/or constipation. Sleepiness, dizziness, dry mouth, confusion, depression or itching. Physical dependence, meaning you have withdrawal symptoms when a medication is stopped ? this can develop within a few days. KNOW YOUR RESPONSIBILITIES It is important to know exactly how much and how often to take the opioid pain medications you are prescribed. Never take opioids in higher amounts or more often than prescribed. Do not combine opioids with alcohol or other drugs that cause drowsiness, such as benzodiazepines, also known as benzos,including diazepam and alprazolam, muscle relaxants or sleep aids. Never sell or share prescriptionopioids. This is illegal. Store opioids in a secure place and out of reach of others (including children, family, friends and visitors). The last page(s) of this document has been signed and retained as a CHART COPY Signatures Patient Education Materials Bladder Infection, Female (Adult) Dizziness, Uncertain Cause Medication Leaflets My discharge plan and instructions have been reviewed and explained to me and I,MANSI CARO understand my current condition and have read and understand these discharge instructions. I have received a written copy of the plan/instructions. If I have questions, I am aware that I should contact my doctor. 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 There is a left-sided AICD. There is linear atelectasis/scarring in the right base. There is no focal consolidation, pleural effusion, or pneumothorax. No acute osseous abnormality. IMPRESSION: Linear scarring versus atelectasis in the right lung base. Otherwise, no acute radiographic findings. Interpreted by: Tony Otero MD Preliminary Report By: Tony Otero MD Electronically signed By Tony Otero MD Dictated Date: 08/19/2022 4:41:04 PM Prelim Date: 08/19/2022 4:42:10 PM Sign Date: 08/19/2022 4:42:10 PM Ordering Provider: [facility] SHER [id number] Note ORIGINAL EXAMINATION: ONE XRAY VIEW OF THE CHEST08/19/2022 4:34 pm CHEST ONE VIEW AP/PA COMPARISON: 05/22/2022 HISTORY: ORDERING SYSTEM PROVIDED HISTORY: Reason for Exam: SOB/cough/fever FINDINGS: The cardiomediastinal contours are normal. There is a left-sided AICD. There is linear atelectasis/scarring in the right base. There is no focal consolidation, pleural effusion, or pneumothorax. No acute osseous abnormality. IMPRESSION: Linear scarring versus atelectasis in the right lung base. Otherwise, no acute radiographic findings. Interpreted by: Tony Otero MD Preliminary Report By: Tony Otero MD Electronically signed By Tony Otero MD Dictated Date: 08/19/2022 4:41:04 PM Prelim Date: 08/19/2022 4:42:10 PM Sign Date: 08/19/2022 4:42:10 PM Ordering Provider: [facility]09-19-2022 History of Present illness Narrative* Sherif Ramirez MD - 08/10/2022 3:41 PM EDT [facility] - FOLLOW UP EVALUATION Jesus Manuel Freitas, DO, DO [address] [facility] [id number] Freitas, I had the pleasure of seeing Ms. Caro for follow up today. she is a 67 year old right-handed female with a history of lef thand tremor since 2021. She is seen with her . We had a visit using: [employer] I received consent from the patient to perform the visit using this platform. Subjective HISTORY OF PRESENT ILLNESS: During her previous visit the following plan was made: Previous plan-06/23/2022 Visit: Tremor -patient will contact us via [employer] messaging should she wish to proceed with Sinemet trial. Virtual follow-up in 3 months Interested in clinical research? Not currently Patient started to have restlessness, hand shaking which is about the same since starting the medication but it is happening to her arm and your hand, and leg cramps are still there. Did not notice any improvement with the medication. Symptoms are all the time, perhaps mostly at night. Symptoms feel like a normal crap, or as if she's been exercising too much. Lasts for a few minutes. Cannot do anything that shortens the duration aside from a sprayable muscle relaxer (magnesium sulfate). Pullingher arm down reduces the symptoms. Has no voluntary control over the movements. Is still taking Abilify. Currently is infected with Covid. In addition, the following areas that may be affected by abnormal involuntary movements were evaluated: Daily activities Difficulties with eating: Yes (mild) Difficulties in dressing: Yes (slight) Difficulties with hygiene activities: Yes (slight) Difficulties with handwritin (none) Difficulties with doing hobbies and other activities: Yes (moderate) Difficulties turning in bed: Yes (slight) Difficulties getting out of bed, car or chair: Yes (mild) Tremors/Gait/Balance Shaking or tremors: Yes (moderate): Walking and balance problems: Yes (slight) Number of falls in the Last Month: 0 Gait freezin (none) Autonomic/Pain Lightheadeness on standing: Yes (mild) Urinary problems: Yes (slight) Constipation problems: Yes (mild) Pain and other sensations: Yes (moderate): Speech/Swallowing Speech problems: Yes (slight) Drooling: Yes (mild) Chewing and swallowing problems: 0 (none) Sleep/Fatigue Sleep problems: Yes (mild) Daytime sleepiness: Yes (mild) Fatigue: Yes (mild) REM sleep behavior disorder: no Restless Legs Syndrome: Mood/Behavior Depression: PQH-9 = 18 usually representing moderately severe (15-19) depression. Anxiety: JENNY-7 = 4 usually representing no significant (0-4) anxiety. Finally, the following table shows the patient's overall global physical and mental health using the PROMIS scale: PROMIS-10 Flowsheet Row Appointment from 08/10/2022 in [facility] from 10/30/2021in Spine Medicine Global Physical Health T Score 37.4 37.4 Global Mental Health T Score 31.3 38.8 0-10 Standard Pain Scale 3 3 *PROMIS-10 scoring scale: mean = 50, over 50 is above average, under 50 is below average Parkinson's Medications Schedule - as of the start of the visit: Medications ALLERGIES Allergen Reactions Lipitor [Atorvastat* Heart racing; 07/04/10 patient states that she had started a lot of medication at this time and the she did not have a true allergic reaction and is willing to rechallenge [facility] RN Current Outpatient Medications Medication Sig carbidopa-levodopa (SINEMET) 25-100 mg per tablet Take 1.5 tablets by mouth three times daily. Start with 0.5 tablet 3 times a day. After 7 days increase to 1 tablet 3 times a day. After 7 more days increase to 1.5 tablet 3 times a day and continue on that dose. Take with meals and avoid taking with iron supplements clopidogrel (PLAVIX) 75 mg tablet Take 75 mg by mouth once daily. carvedilol (COREG) 3.125 mg tablet 3.125 mg. clonazePAM (KLONOPIN) 1 mg tablet Take 1 mg by mouth daily at bedtime. furosemide (LASIX) 20 mg tablet spironolactone (ALDACTONE) 25 mg tablet 12.5 mg. traZODone (DESYREL) 50 mg tablet Take 50 mg by mouth. Iron 18 mg tab Take by mouth. sacubitril-valsartan (ENTRESTO) 24-26 mg tablet Take 1 tablet by mouth twice daily. baclofen (LIORESAL) 5 mg tablet Take 1 tablet by mouth four times daily. Do not abruptly stop if athigh dose, risk for withdrawal seizures. ARIPiprazole (ABILIFY) 2 mg tablet Take 2 mg by mouth once daily. BABY ASPIRIN ORAL Take 81 mg by mouth. glipiZIDE-metFORMIN (METAGLIP) 2.5-250 mg tablet Take 1 tablet by mouth twice daily before meals. oxybutynin (DITROPAN) 5 mg/5 mL syrup Take 5 mg by mouth twice daily. pantoprazole DR (PROTONIX) 40 mg tablet Take 1 tablet by mouth twice daily. metFORMIN (GLUCOPHAGE) 500 mg tablet Take 1 tablet by mouth twice daily. rosuvastatin (CRESTOR) 5 mg ORAL Tab 1 qd No current facility-administered medications for this visit. Objective Physical Examination: General: Awake, alert, interactive, no acute distress, good nutritional status, normal development,well-kept Neurological Examination: Awake, alert, oriented. Able to connect to virtual platform and provide an accurate history Cranial nerves grossly intact Able to move extremities spontaneously without any apparent weakness Moderate bilateral bradykinesia and mild postural termor Exam limited by virtual platform Pertinent Studies MRI brain (2008): Evolving subacute infarcts in the left frontal, parietal, and supra occipital regions. No recent brain scans. Assessment and Plan: Assessment Assessment Ms. Caro is a right-handed 67 year old female with 6-month history of rest tremor of the left hand and parkinsonism in the setting of antipsychotic use. Patient did not respond favorably to Sinemet trial, which is suggestive of drug induced parkinsonism as the more likely cause for her symptoms. Given lack of psychosis, an alternate option such as bupropion may be a more prudent choice, which would allow for a potentially therapeutic and diagnosticapproach. Sinemet should be stopped given its lack of effect. Cramping at nighttime sounds more consistent with nocturnal leg cramps than dystonia from parkinsonism, and some additional recommendations were provided. 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 You can remove the morning dose starting tomorrow, and 1 week later you can stop taking medication. Please not to see whether symptoms of parkinsonism or cramps improve or worsenwhen you do this Stop Abilify as this is a likely cause for your symptoms. Recommend bupropion as an alternative Try Vitamin B12 complex for muscle cramps. Tonic water at bedtime can also help Follow up in September as scheduled before Interested in clinical research? Not currently Updated Parkinson's Medication Schedule: Medications Level of service : 12375 (20-29 min). Time spent 20 min on the day of service, which included preparing to see the patient, [id number] patient care, completing clinical documentation, obtaining and/or reviewing separately obtained history, performing a medically appropriate examination, and counseling and educating the patient/family/caregiver Thank you for allowing me to be part of the clinical care of this patient! I look forward to continued participation in the patient s care with you. Please do not hesitate to call with any questions. Sincerely, Sherif Ramirez MD Associate Staff [facility] Instructions* Patient Instructions* Carleen Denton MD - 06/23/2022 4:27 PM EDT It was a pleasure to see you today. We addressed the following diagnoses: Tremor of left hand Plan 06/23/2022 Visit: Tremor - examination suggests parkinsonism. This is an umbrella term than includes more than one possibility including Parkinson's disease and drug induced parkinsonism. Abilify is one of the medications that can cause parkinsonism. Options at this stage: switching Abilify, checking your response to Parkinson's treatment, or considering special scans like Clemencia scan. 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 if you'd like to start the medication Return in about 3 months (around 09/23/2022) for Virtual Visit. If there are any concerns before your next visit, please call or you can send a message through [employer]. You can also now schedule and select appointments through [employer]. Carleen Denton MD documented in this encounterGre[facility]08-[facility]-2022 History of Present illness Narrative* Sherif Ramirez MD - 06/23/2022 3:23 PM EDT [facility] - NEW PATIENT EVALUATION Ghazala Gusman [address] [facility] [id number] Jesus Manuel Freitas, DO, DO [address] [facility] [id number] Gusman: thank you for referring Ms. Caro in our clinic today. As you know she is a 67 year old right-handed female who is seen in consultation for evaluation of lef thand tremor since 2021. She is seen with his spouse. Subjective HISTORY OF PRESENT ILLNESS: Initial HPI Patient presents for the evaluation of new left hand tremor that was noticed 5-6 months ago. It is noticeable during rest and can also manifest during some activities like when holding items or usingutensils.They describe tremor that gradually worsened over week. It started in her fingers then progressed to involve the hand. Mansi was given a diagnosis of cerebral palsy as a child. She had spasticity of R hemibody. hx is unavailable now. She knows she had motor delay and she needed R ankle bracing. Additionally, she may had L amblyopia requiring patching. In 2008, she had a stroke. Record from that admission is not available but I understand etiology may related to PFO, L MCA thrombosis or both. Her MRI showed multifocal left frontal and parietal infarcts. She developed further spasticity, nystagmus and R visual field cuts. Despite this, she remained independent in daily activities and ambulation. She uses baclofen for spasticity. In Oct 2021, she was admitted for pneumonia and had a complicated stay requiring ICU admission and was sedated for 2-3 weeks. Family does not endorse new neurologic concerns. I understand she was found to have CAD then and needed stenting. Over subsequent months, concern grew over arrhythmia and decreased EF and she eventually needed insertion of HEAD BELLHOP CAPTAIN-D in April. In addition to her new tremor, she is felt slowing of movements. They deny new changes in gait, voice or handwriting. No hx of weakness or numbness of L hemibody. Her sense of smell is good. No hx suggestive of RBD. There is some vague leg discomfort but unclear if RLS. It seems that Mansi is forgetful. helps her in setting her pill organizer and keeping her appointments. She is independent in [place]. Her grandmother may have had a tremor. No hx of PD in family. She has a long hx of depression. She has been on Abilify for a number of years; possibly 5 years. Isee Trintellix and Mirapex may have been prescribed before but they are unsure of the indications. No exposure to there neuroleptics that they are aware of. In addition, the following Parkinson-associated features were evaluated: Daily activities Difficulties with eating: Yes: mild Difficulties in dressing: No Difficulties with hygiene activities: No Difficulties with handwriting: No Difficulties with doing hobbies and other activities: No Difficulties turning in bed: No Difficulties getting out of bed, car or chair: No Tremors/Gait/Balance Shaking or tremors: Yes: mild but bothersome Walking and balance problems: No Number of falls in the Last Month: No Gait freezing: No Autonomic/Pain Lightheadedness on standing: No Urinary problems: No Constipation problems: No Pain and other sensations: No Speech/Swallowing Speech problems: No Drooling: No Chewing and swallowing problems: No Sleep/Fatigue Problems sleeping at night: Yes: but current meds help Daytime sleepiness: No Fatigue: Yes: moderate REM sleep behavior disorder: no Restless Legs Syndrome: Mood/Behavior/Cognition Cognitive impairment: yes memory impaired No Data Recorded Hallucinations and delusions: no Apathy: unclear Finally, the following table shows the patient's overall global physical and mental health using the PROMIS scale relative to the previous visit: PROMIS-10 Distance Health from 10/30/2021 in Spine Medicine Global Physical Health T Score 37.4 Global Mental Health T Score 38.8 0-10 Standard Pain Scale 3 *PROMIS-10 scoring scale: mean = 50, over 50 is above average, under 50 is below average Review of Systems Constitutional: Negative for appetite change. HENT: Negative for drooling and dysphonia. Eyes: Positive for visual disturbance and visual disturbance. ALLERGIES Allergen Reactions Lipitor [Atorvastat* Heart racing; 07/04/10 patient states that she had started a lot of medication at this time and the she did not have a true allergic reaction and is willing to rechallenge [facility] RN Current Outpatient Medications Medication Sig clopidogrel (PLAVIX) 75 mg tablet Take 75 mg by mouth once daily. furosemide (LASIX) 20 mg tablet spironolactone (ALDACTONE) 25 mg tablet 12.5 mg. traZODone (DESYREL) 50 mg tablet Take 50 mg by mouth. Iron 18 mg tab Take by mouth. sacubitril-valsartan (ENTRESTO) 24-26 mg tablet Take 1 tablet by mouth twice daily. baclofen (LIORESAL) 5 mg tablet Take 1 tablet by mouth four times daily. Do not abruptly stop if athigh dose, risk for withdrawal seizures. ARIPiprazole (ABILIFY) 2 mg tablet Take 2 mg by mouth once daily. BABY ASPIRIN ORAL Take 81 mg by mouth. glipiZIDE-metFORMIN (METAGLIP) 2.5-250 mg tablet Take 1 tablet by mouth twice daily before meals. oxybutynin (DITROPAN) 5 mg/5 mL syrup Take 5 mg by mouth twice daily. pantoprazole DR (PROTONIX) 40 mg tablet Take 1 tablet by mouth twice daily. metFORMIN (GLUCOPHAGE) 500 mg tablet Take 1 tablet by mouth twice daily. rosuvastatin (CRESTOR) 5 mg ORAL Tab 1 qd carvedilol (COREG) 3.125 mg tablet 3.125 mg. clonazePAM (KLONOPIN) 1 mg tablet Take 1 mg by mouth daily at bedtime. No current facility-administered medications for this visit. Past Medical and Surgical History: has a past medical history of Anxiety state, unspecified, Chronic depressive personality disorder, Depression, Hyperlipidemia, PMH - PAST MEDICAL HISTORY OF, Smoking, Stroke (HCC), and Unspecified essential hypertension. She has no past medical history of Asthma, Atrial fibrillation (HCC), Cancer (HCC), Carotid artery stenosis, Chronic renal insufficiency, Congestive heart failure (HCC), Coronary artery disease, Deepvein thrombosis (DVT) (HCC), Diabetes (HCC), Hypercoagulable state (HCC), Intracranial aneurysm, Obesity, or Obstructive sleep apnea. has a past surgical history that includes laparoscopy surg cholecystectomy (11/21/14); ercp dx collection specimen brushing/washing (11/20/14); and colonoscopy flx dx w/collj spec when pfrmd (02/21/15). Social History Tobacco Use Smoking status: Former Smoker Packs/day: 1.50 Years: 45.00 Pack years: 67.50 Types: Cigarettes Quit date: 12/23/2008 Years since quittin.5 Smokeless tobacco: Never Used Substance Use Topics Alcohol use: No Drug use: Not on file Family History: family history includes Coronary Artery Disease in her father. In addition, the patient denies any family history of PD/parkinsonism, tremor, other involuntary movement disorders. Objective Vital Signs: BP 116/64 (BP Site: Left Arm, BP Position: Sitting, BP Cuff Size: Regular Adult) Pulse 75 Ht 172.7 cm (5' 8) Wt 65.3 kg (144 lb) SpO2 97% BMI 21.90 kg/m General Physical Examination: General: Awake, alert, interactive, no acute distress. General Neurological Examination: Neurological Exam Mental Status Awake, alert and oriented to person, place and time. Language is fluent with no aphasia. Cranial Nerves CN II: Right homonymous hemianopsia. CN III, IV, : Nystagmus present: Few beats of gaze evoked nystagmus horizontally . CN VII: Full and symmetric facial movement. CN XII: Tongue midline without atrophy or fasciculations. Motor Normal muscle bulk throughout. Increased muscle tone. Right upper extremity and lower extremity spasticity. Slight rigidity of the left upper extremity.. Right Left Deltoid 4+ 5 Biceps 5 5 Triceps 4+ 5 Iliopsoas 5 5 Ankle dorsiflexor 4 5 Reflexes Right Left Brachioradialis 3+ 3+ Biceps 3+ 2+ Patellar 3+ 2+ Coordination Right: Wuzaze-eg-jeep normal. Rapid alternating movement abnormality: Mild right-sided slowing of finger and hand movements in the context of spasticity. Moderate slowing of left finger and hand movements. Mild slowing is seen in left toe tapping and leg agility.. Left: Bxuoxc-ep-yogu normal. Rapid alternating movement abnormality: Gait Slow gait with short stride length and mild dragging of the right foot, flexion of the right arm and active tremor of the left hand. . Movement Disorders Cognitive and Motor Biomeasures: Processing Speed Test Total Number Correct: ; Z Score: Visual Memory Test Raw Score: ; Z Score: Manual Dexterity Test (max = 180 secs) Left Hand Time: ; Right Hand Time: Walking Speed Test (25 foot walk): *Z score interpretation: higher than -1.5 is within normal; -1.5 to -2.0 represents mild impairment; lower than -2.0 represents significant impairment Movement Disorders Scales Performed: MDS-UPDRS Motor subscale condition of exam Medication Off/On/Naiive Drug Naiive Time of UPDRS Time of Last Medication Last Medication Taken DBS Right N/A DBS Left N/A MDS-UPDRS Motor subscale scores Speech 2-Mild. Loss of modulation, diction, or volume, with a few words unclear, but the overall sentences easy to follow. Facial Expression 2-Mild. In addition to decreased eye-blink frequency, Masked facies present in the lower face as well, namely fewer movements around the mouth, such as less spontaneous smiling, butlips not parted. Rigidity Neck 0-Normal. No rigidity. Rigidity Right Upper Extremity (spasticity) Rigidity Left Upper Extremity 1-Slight. Rigidity only detected with activation maneuver. Rigidity Right Lower Extremity 0-Normal. No rigidity. Rigidity Left Lower Extremity 0-Normal. No rigidity. Finger Taps Right 1-Slight. a) the regular rhythm is broken with one or two interruptions or hesitations of the tapping movement, b) slight slowing, c) the amplitude decrements near the end of the 10taps. Finger Taps Left 3-Moderate. a) more than 5 interruptions during tapping or at least one longer arrest (freeze) in ongoing movement, b) moderate slowing, c) the amplitude decrements starting after the 1st tap. Hand Movements Right 2-Mild. a) 3 to 5 interruptions during the movements, b) mild slowing, c) the amplitude decrements midway in the task. Hand Movements Left 3-Moderate. a) more than 5 interruptions during the movement or at least one longer arrest (freeze) in ongoing movement, b) moderate slowing, c) the amplitude decrements starting after the 1st razj-abs-onkzu sequence. Arm Movements Right 2-Mild. a) 3 to 5 interruptions during the movements, b) mild slowing, c) the amplitude decrements midway in the sequence. Arm Movements Left 2-Mild. a) 3 to 5 interruptions during the movements, b) mild slowing, c) the amplitude decrements midway in the sequence. Toe Taps Right 3-Moderate. a) more than 5 interruptions during the tapping movements or at least one longer arrest (freeze) in ongoing movement, b) moderate slowing, c) the amplitude decrements starting after the first tap. Toe Taps Left 2-Mild. a) 3 to 5 interruptions during the tapping movements, b) mild slowing, c) theamplitude decrements midway in the task. Leg Agility Right 3-Moderate. a) more than 5 interruptions during the movement or at least one longer arrest (freeze) in ongoing movement, b) moderate slowing in speed, c) amplitude decrements after the first tap. Leg Agility Left 2-Mild. a) 3 to 5 interruptions during the movements, b) mild slowness, c) the amplitude decrements midway in the task. Arise From Chair 2-Mild. Pushes self up from arms of chair without difficulty. Gait 2-Mild. Independent walking but with substantial gait impairment. Gait Freezing 0-Normal. No freezing. Posture Stability (Deferred) Posture 1-Slight. Not quite erect, but posture could be normal for older person. Body Bradykinesia 2-Mild. Mild global slowness and poverty of spontaneous movements. Postural Tremor Hand Right 0-Normal. No tremor. Postural Tremor Hand Left 1-Slight. Tremor is present but less than 1cm in amplitude. Kinetic Tremor Right 0-Normal. No tremor. Kinetic Tremor Left 2-Mild. Tremor is at least 1 but less than 3 cm in amplitude. Rest Tremor Amplitude Right Upper Extremity 2-Mild. > 1 cm but < 3 cm in maximal amplitude. Rest Tremor Amplitude Left Upper Extremity 2-Mild. > 1 cm but < 3 cm in maximal amplitude. Rest Tremor Amplitude Right Lower Extremity 0-Normal. No tremor. Rest Tremor Amplitude Right Lower Extremity 0-Normal. No tremor. Rest Tremor Amplitude Lip/Jaw 1-Slight. < 1 cm in maximal amplitude. Rest Tremor Constancy 2-Mild. Tremor at rest is present 26-50% of the entire examination period. MDS-UPDRS Motor subscale totals Left Total 18 Right Total Midline Total Tremor Total / 10 10 PIGD Total / 3 Overall Total % Change Compared to Last Filed Total Pertinent Studies MRI brain (2008): Evolving subacute infarcts in the left frontal, parietal, and supra occipital regions. No recent brain scans. Assessment and Plan: Assessment Ms. Caro is a right-handed 67 year old female with 6-month history of rest tremor of the left hand. Her examination shows slight rigidity of the left upper extremity and moderate bradykinesia of repetitive movements. This happens in the context of historical diagnosis of cerebral palsy with right-sided spasticity and ischemic stroke with multifocal infarcts of the left frontoparietal cortex in 2008. Additionally, patient has long history of depression and insomnia and has been treated with Abilify for a number of years. Overall, her presentation is suggestive of parkinsonism. Possibilities atthis stage include drug-induced parkinsonism, with spasticity masking milder tremor on the right hemibody, or idiopathic Parkinson's disease. In order to discern if Abilify is playing a role in her sy mptoms, we can consider: Switch Abilify to another agent, perform Clemencia scan, or assessing her response to levodopa. We were unclear on whether or not Abilify provided significant benefit to her mood symptoms with which continued treatment is desirable. In discussion with the patient and her ,we eventually favored proceeding with a trial of levodopa. If significant and persistent response would argue in favor of idiopathic Parkinson's disease. Mansi and her wanted to discuss the levodopa trial with her stock repairer to see if there is any cardiac contraindications. If they wish to proceed with the medication, we will suggest starting at half tablet of Sinemet 3 times daily. This will be gradually increased by 0.5 tablet weekly to reach a target dose of 1.5 to 2 tablets 3 times daily. The following are the current problems noted and addressed during this visit: Parkinsonism, unspecified parkinsonism type (hcc) (primary encounter diagnosis) Tremor of left hand Plan 06/23/2022 Visit: Tremor -patient will contact us via [employer] messaging should she wish to proceed with Sinemet trial. Virtual follow-up in 3 months Interested in clinical research? Not currently Level of service : 47852 (60-74) min). Time spent 60 min on the day of service, which included preparing to see the patient, [id number] patient care, completing clinical documentation, obtaining and/or reviewing separately obtained history, performing a medically appropriate examination and counseling and educating the patient/family/caregiver. Thank you for allowing me to be part of the clinical care of this patient! I look forward to continued participation in the patient s care with you. Please do not hesitate to call with any questions. Sincerely, Carleen Denton MD I performed a history and physical examination of the patient and discussed the management with . I reviewed their note and agree with the documented findings and plan of care. Aside from minor typographical errors, any additions from myself can be found in italicized text. Thank you for allowing me to be part of the clinical care of this patient! I look forward to continued participation in the patient s care with you. Please do not hesitate to call with any questions. Sincerely, Sherif Ramirez MD Associate Staff [facility] History of Present illness Narrative* Ghazala Gusman MD - 06/04/2022 1:01 PM EDT Rehabilitation Medicine F/u patient June 04, 2022 Last virtual visit 10/29/21 an last F2F visit 07/10/21 The patient was seen for f/u today. Recall, the patient is a 67 yo woman with PMH possible baseline CP, anxiety, depression, HTN, HPL, smoker, stroke left MCA 2008 with left M2 thrombus with 2/2 spasticity right HF/hip add/KF, but morein the distal aspects PF and D4/5 toe flexors, less so hip and KFs. She has element of dynamic spasticity with gait with right foot going into PF and flexor toe curling . 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 HEAD BELLHOP CAPTAIN D placed on 05/12/22. No new N/T weakness. Paternal GM had tremors. spaticity does better with qid rather than tid and she is interested back to qid Current Outpatient Medications Medication Sig baclofen (LIORESAL) 5 mg tablet Take 1 tablet by mouth three times daily. Do not abruptly stop if at high dose, risk for withdrawal seizures. ARIPiprazole (ABILIFY) 2 mg tablet Take 2 mg by mouth once daily. BABY ASPIRIN ORAL Take 81 mg by mouth. glipiZIDE-metFORMIN (METAGLIP) 2.5-250 mg tablet Take 1 tablet by mouth twice daily before meals. escitalopram oxalate (LEXAPRO) 20 mg tablet Take 20 mg by mouth once daily. lisinopril (ZESTRIL, PRINIVIL) 5 mg tablet Take 5 mg by mouth once daily. oxybutynin (DITROPAN) 5 mg/5 mL syrup Take 5 mg by mouth twice daily. pramipexole (MIRAPEX) 0.25 mg tablet Take 0.25 mg by mouth three times daily. pantoprazole DR (PROTONIX) 40 mg tablet Take 1 tablet by mouth twice daily. citalopram (CELEXA) 20 mg tablet Take 1 tablet by mouth once daily. (Patient not taking: Reported on 07/10/2021 ) metFORMIN (GLUCOPHAGE) 500 mg tablet Take 1 tablet by mouth twice daily. rosuvastatin (CRESTOR) 5 mg ORAL Tab 1 qd amlodipine bes/olmesartan med(JOAQUÍN 5 MG-20 MG TAB) Take 1/2 tablet daily (Patient not taking: ) IBUPROFEN 200 MG TAB as necessary clopidogrel bisulfate(PLAVIX 75 MG TAB) Take one(1) tablet daily. (Patient not taking: Reported on 07/10/2021) omega-3 fatty acids/vitamin e(FISH OIL 1,000 MG CAP) Take one(1) tablet daily. (Patient not taking: ) No current facility-administered medications for this visit. ALLERGIES Allergen Reactions Lipitor [Atorvastat* Heart racing; 07/04/10 patient states that she had started a lot of medication at this time and the she did not have a true allergic reaction and is willing to rechallenge HERVE RN PAST MEDICAL HISTORY Diagnosis Date Anxiety state, unspecified Chronic depressive personality disorder Depression Hyperlipidemia PMH - PAST MEDICAL HISTORY OF ? epilepsy Smoking Stroke (HCC) Unspecified essential hypertension Essential hypertension PAST SURGICAL HISTORY Procedure Laterality Date COLONOSCOP W/ OR W/O BRSH SPEC 02/21/15 Colonoscopy ERCP W/O BRUSH/WASH SPECIMEN 11/20/14 Cholangiopancreatography (ERCP) with sphincterotomy and stone removal LAPAROSCOPIC CHOLEYCYSTECTOMY 11/21/14 FAMILY HISTORY Problem Relation Age of Onset Coronary Artery Disease Father Social History Tobacco Use Smoking status: Former Smoker Packs/day: 1.50 Years: 45.00 Pack years: 67.50 Types: Cigarettes Quit date: 12/23/2008 Years since quittin.4 Smokeless tobacco: Never Used Substance Use Topics Alcohol use: No Drug use: Not on file ROS: GENERAL: Denies fever, chills malaise and weight loss. HEENT: No recent change in vision or hearing. CARDIOVASCULAR: Denies chest pain, history of A-fib, valvular disease, or pacemaker/ICD. RESPIRATORY: Denies SOB, sputum production, and hemoptysis. GI: Denies GI ulcers, inflammatory disease, or liver disease. : Denies change in frequency or urgency, kidney disease, and burning with urination. MUSCULOSKELETAL: see hpi SKIN: Denies rash or itching. PSYCHOLOGICAL: see above NEURO: see hpi ENDOCRINE: Denies diabetes, thyroid disease. HEMATOLOGY/LYMPHOLOGY: Denies cancer, bleeding or clotting disorders, anemia,and DVT's. ALLERGIC/IMMUNOLOGICAL: see hpi On exam: BP 115/67 Pulse 77 SpO2 98% Alert, and oriented. Language eval notes no dysarthria. present Tremor left hand about 3 Hz Pill rolling quality. Better with activity in the left hand IMPRESSION and PLAN: 67 yo woman with PMH anxiety, depression, HTN, HPL, smoker, stroke with spasticity right HF/hip add/KF, but more in the distal aspects PF and D4/5 toe flexors, less so hip and KFs. She has element ofdynamic spasticity with gait with right foot going into PF and flexor toe curling . Baclofen 5mg tid but better controlled at qid (decreased on her own before) but interested at qid as better controlled and re ordered with 6 month supply. Her BPs on the low side, so zanaflex not the first choice, but can consider low dose zanaflex if not abi or SE, but consider her BPs and would need to avoid high dosing Given this newer left hand tremor, does not look like essential tremor, possible parkinsonian in appearance. On many meds, but if medication effect, would expect more to be b/l Will have see movement disorder for eval. F/u 6-12 months Patient understands above plan; questions asked and answered. Medication options, including side effects, were discussed in detail. Education was given regarding signs and symptoms that would indicate a serious change in condition, and they were instructed to seek care immediately should these arise. Patient agrees to plan as noted above. These notes are used for the purpose of medical documentation and that for use for other medical providers. Jargon expressed here is intentioned for use under this context. Ghazala Gusman MD I spent a total of 30 minutes on the date of the service which included preparing to see the patient, [id number] patient care, completing clinical documentation, performing a medically appropriate examination, counseling and educating the patient/family/caregiver and ordering medications, tests, or procedures. [facility] Hospital Discharge instructions Patient Education 05/22/2022 15:09:45 Febrile Illness, Uncertain Cause (Adult) Febrile Illness with Uncertain Cause (Adult) You have a fever, but the cause is unknown. A fever is a natural reaction of the body to an illnesssuch as infection due to a virus or bacteria. Sometimes other conditions such as cancer or immune diseases can cause fever, especially if the fever has lasted for more than a week or 2. In most cases, the temperature itself is not harmful. It actually helps the body fight infections. A fever does not need to be treated unless you feel very uncomfortable. Sometimes a fever can be an early sign of a more serious infection, so make sure to follow up if your condition worsens. Home care Unless given other instructions by your healthcare provider, follow these guidelines when caring for yourself at home. General care If your symptoms are not severe, rest at home for the first 2 to 3 days. When you resume activity, don't let yourself get too tired. For your overall health, don't smoke. Also avoid being exposed to secondhand smoke. Your appetite may be poor, so a light diet is fine. Avoid dehydration by drinking 6 to 8 glasses offluids per day (such as water, soft drinks, sports drinks, juices, tea, or soup). If you have congestion, extra fluids will help loosen secretions in the nose and lungs. Medicines You can take acetaminophen or ibuprofen for pain or to lower your temperature, unless you were given a different medicine to use. (Note: If you have chronic liver or kidney disease or have ever had astomach ulcer or gastrointestinal bleeding, talk with your healthcare provider before using these medicines. Also talk to your provider if you are taking medicine to prevent blood clots.) Aspirin should never be given to anyone younger than 18 years of age who is ill with a viral infection or fever. It may cause severe liver or brain damage. If you were given antibiotics for an infection, take them until they are used up, or your healthcare provider tells you to stop. It is important to finish the antibiotics even though you feel better.This is to make sure the infection has cleared. Be aware that antibiotics are not usually given fora viral infection or a fever with an unknown cause. Eixm-uxb-cnkpzzk medicines will not shorten the duration of the illness. However, they may be helpful for the following symptoms: cough, sore throat, or nasal and sinus congestion. Ask your pharmacist for product suggestions. (Note: Don't use decongestants if you have high blood pressure.) Follow-up care Follow up with your healthcare provider, or as advised. If a culture or other lab tests were done, you will be notified if your treatment needs to be changed. You can call as directed for the results. If X-rays, a CT, or an ultrasound were done, a specialist will review them. You will be notified ofany findings that may affect your care. Call 911 Call 911 if any of these occur: Trouble breathing or swallowing, or wheezing Chest pain Confusion Extreme drowsiness or trouble awakening Fainting or loss of consciousness Rapid heart rate Low blood pressure Vomiting blood, or large amounts of blood in stool Seizure When to seek medical advice Call your healthcare provider right away if any of these occur: Cough with lots of colored sputum (mucus) or blood in your sputum Severe headache Face, neck, throat, or ear pain Feeling drowsy Abdominal pain Repeated vomiting or diarrhea Joint pain or a new rash Burning when urinating Fever of 100.4 F (38 C) or higher, or as directed by your healthcare provider Feeling weak or dizzy [id number] [employer]. [address] [place] [address], [place] [address]. All rights reserved. This information is not intended as a substitute for professional medical care. Always follow yourhealthcare professional's instructions. 05/22/2022 15:09:33 Fever Control (Adult) Fever Control (Adult) A fever is a normal reaction of your body to an illness. The temperature itself usually isn t harmful. It actually helps your body fight infections. You don t need to treat a fever unless you feel very uncomfortable. Home care Follow these tips to take care of yourself at home: If you feel warm, check your temperature. Dress in light clothing. This will help you lose extra body heat through your skin. The fever will go up if you wear extra layers or wrap in blankets. Fever causes your body to lose water through evaporation. Drink plenty of fluids. These include water, juice, clear sodas, arlene matt, or lemonade. Fever medicines You can take acetaminophen every 4 to 6 hours if: You feel very uncomfortable Your oral temperature is 100.4 F (38 C) or higher If you can t take or keep down oral medicine, ask your pharmacist for acetaminophen suppositories. You don t need a prescription for these. If the fever doesn t get better within 1 hour after you take acetaminophen, take ibuprofen. If thisworks, keep taking the ibuprofen every 6 to 8 hours. If you have chronic liver or kidney disease, talk with your healthcare provider before taking thesemedicines. Also talk with your provider if you ever had a stomach ulcer or GI (gastrointestinal) bleeding. If either medicine alone doesn t keep the fever down, you may switch off between the 2 medicines every 3 to 4 hours. But do this only if your healthcare provider has told you to. For example, take ibuprofen. Wait 3 hours. Then take acetaminophen. Wait 3 hours. Take ibuprofen, and so on. Follow yourprovider s instructions exactly. Don't give aspirin to anyone younger than age 19 who is ill with a fever. Aspirin can cause seriousside effects such as liver damage and Neville syndrome. Although rare, Neville syndrome is a very seriousillness usually found in children younger than age 15. The syndrome is closely linked to the use ofaspirin or aspirin-containing medicine during viral infection. Follow-up care Follow up with your healthcare provider if you don't get better after 48 hours. When to seek medical advice Call your healthcare provider right away if any of these occur: Fever, as directed by your healthcare provider, or: oFever of 100.4 F (38 C) or above lasting for 24 to 48 hours oFever lasting more than 3 days, even without other symptoms oFever that happens after visiting a foreign country oFever that happens within a month after visiting a country with malaria. Malaria is a serious illness. A fever can still be malaria even if you took medicine to prevent it. The medicine does not work in all cases If you experience unexplained fever and your immune system is compromised such as by immune suppressing drugs, stem cell or organ transplant, HIV/AIDS, or cancer Confusion or trouble thinking Headache or stiff neck Flat, small, purplish red spots on your skin Low blood pressure Fast heart rate Fast (rapid) breathing You are You just had surgery, another medical procedure, or were just discharged from the hospital Use of medicines that suppress the immune system (immunosuppressants). These include Prednisone, cancer medicines, and organ transplant rejection medicines. If you are not sure about whether your medicines suppress your immune system, ask your healthcare provider. Call 911 Someone should call 911 if you: Are having trouble breathing or shortness of breath Are unresponsive Important reminder Call your healthcare provider if you get a fever after visiting a place where infectious diseases are common. Many people brick picker a cold or other virus while traveling. This usually goes away withouta problem. But, some places have more serious diseases. Fever with certain other symptoms may mean you have a serious illness. Symptoms to watch for include diarrhea, skin rashes, insect bites, and skin boils, or infections. Your provider may ask you: What you did on your trip How long you were there Where you stayed (hotel, [place] house, tent) What you ate and drank If you were bitten by insects or other bugs If you swam in freshwater If you had sex or got a tattoo or piercing while you were there Check the CDC to get more information about specific infectious diseases in the areas you have traveled. [id number] [employer]. [address] [place] [address], [place] [address]. All rights reserved. This information is not intended as a substitute for professional medical care. Always follow yourgrant hospitalcare professional's instructions. 05/22/2022 15:07:47 Weakness (Uncertain Cause) Weakness with Uncertain Cause Based on your exam today, the exact cause of your weakness is not certain. But your weakness does not seem to be a sign of a serious illness at this time. Keep an eye on your symptoms and get medicaladvice as instructed below. Home care Rest at home today. Don't over-exert yourself. Take any medicine as prescribed. For the next few days, drink extra fluids (unless your healthcare provider wants you to restrict fluids for other reasons). Don't skip meals. Unless otherwise directed, continue to take any prescription medicines. Contact your healthcare provider if you have any questions or concerns. Follow-up care Follow up with your healthcare provider, or as advised. When to seek medical advice Call your healthcare provider right away for any of the following: Symptoms get worse Symptoms don't start getting better within 2 days Fever of 100.4 F (38 C) or higher, or as directed by your healthcare provider Call 911 Call 911 for any of these: Chest, arm, neck, jaw, or upper back pain Trouble breathing Numbness or weakness of the face, one arm, or one leg Slurred speech, confusion, or trouble speaking, walking, or seeing Blood in vomit or stool (black or red color) Loss of consciousness Severe headache [id number] [employer]. [address] [place] [address]. All rights reserved. This information is not intended as a substitute for professional medical care. Always follow yourhealthcare professional's instructions. Follow Up Care 05/22/2022 12:44:39 With:LARY WHEAT DO Address: [address] [place] [address] [place] [phone] When:2-4 days Comments:Schedule appointment for close follow-up.Drink plenty of fluids and rest.Use Tylenol or Advil for fever as needed.Continue current medications.Return to the ED if symptoms worsen. [facility] 07-01-2022 Emergency department Discharge summary Discharge Instructions Thank you for allowing [facility] to assist you with your healthcare needs. The following is importantdischarge information regarding your hospital visit. Diagnosis from Today's Visit Fever Weakness or fatigue What to Do Next Instructions from Your Care Team No qualifying data available. Post Acute Orders No qualifying data available. You Need to Schedule the Following Appointments Follow Up with MARY ALICE, LARY DO When Within 2-4 days Why: Schedule appointment for close follow-up. Drink plenty of fluids and rest. Use Tylenol or Advil for fever as needed. Continue current medications. Return to the ED if symptoms worsen. [facility] [place] [address]- [phone] Allergies NKA Medications Please ask your primary doctor or pharmacist before taking any other medication not listed, including over the counter drugs, herbal medications, vitamins and or supplements as they may interact withyour home medications. What How Much When Why Instructions Last Dose Unchanged ARIPiprazole (Abilify 2 mg oral tablet) 1 tab(s) by mouth Once a day Unchanged aspirin (aspirin 81 mg oral delayed release tablet) 1 tab(s) by mouth Once a day Unchanged baclofen (baclofen 5 mg oral tablet) 2 tab(s) by mouth Every day Unchanged carbonyl iron (Iron Chews) See instructions 18 mcg gummy daily Unchanged carvedilol (carvedilol 3.125 mg oral tablet) 1 tab(s) by mouth Two (2) times a day Unchanged clonazePAM (clonazePAM 1 mg oral tablet) 1 tab(s) by mouth Daily at bedtime Eye twitch Duration: 30 Days Unchanged clopidogrel (Plavix 75 mg oral tablet) 1 tab(s) by mouth Once a day Unchanged furosemide (Lasix 20 mg oral tablet) See instructions 1 tab(s) Oral qDay on Wed, , Wed Unchanged glipiZIDE (glipiZIDE 2.5 mg oral tablet, extended release) 1 tab(s) by mouth Once a day with a meal Unchanged magnesium citrate-melatonin (magnesium (as citrate)-melatonin 71.5 mg- 1 mg oral tablet) See instructions [employer] Brand 84 mg gummy daily Unchanged metFORMIN (metFORMIN 500 mg oral tablet EXTENDED RELEASE) 1 tab(s) by mouth Two (2) times a day Unchanged multivitamin with minerals (Celebrate Multivitamin oral tablet, chewable) 2 tab(s) Chewed Once a day Unchanged oxybutynin (oxybutynin 5 mg/ 24 hours oral tablet, extended release) 1 tab(s) by mouth Once a day Unchanged pantoprazole (pantoprazole 40 mg oral enteric coated tablet) 1 tab(s) by mouth Once a day Unchanged rosuvastatin (rosuvastatin 20 mg oral tablet) 1 tab(s) by mouth Every day Unchanged sacubitril-valsartan (Entresto 24 mg-26 mg oral tablet) 1 tab(s) by mouth Two (2) times a day Unchanged spironolactone (spironolactone 25 mg oral tablet) 0.5 tab(s) by mouth Wednesday / Wednesday / Wednesday Unchanged traZODone (traZODone 50 mg oral tablet) 1 tab(s) by mouth Daily at bedtime Please take this list to your next doctor s visit. Bring all medications you take, including over the counter medications, herbals and other supplements with you to your doctor s visit. Patients and families are reminded to discard old lists and to update any records with all medication providers or retail pharmacies. Education Materials Febrile Illness with Uncertain Cause (Adult) You have a fever, but the cause is unknown. A fever is a natural reaction of the body to an illnesssuch as infection due to a virus or bacteria. Sometimes other conditions such as cancer or immune diseases can cause fever, especially if the fever has lasted for more than a week or 2. In most cases, the temperature itself is not harmful. It actually helps the body fight infections. A fever does not need to be treated unless you feel very uncomfortable. Sometimes a fever can be an early sign of a more serious infection, so make sure to follow up if your condition worsens. Home care Unless given other instructions by your healthcare provider, follow these guidelines when caring for yourself at home. General care If your symptoms are not severe, rest at home for the first 2 to 3 days. When you resume activity, don't let yourself get too tired. For your overall health, don't smoke. Also avoid being exposed to secondhand smoke. Your appetite may be poor, so a light diet is fine. Avoid dehydration by drinking 6 to 8 glasses offluids per day (such as water, soft drinks, sports drinks, juices, tea, or soup). If you have congestion, extra fluids will help loosen secretions in the nose and lungs. Medicines You can take acetaminophen or ibuprofen for pain or to lower your temperature, unless you were given a different medicine to use. (Note: If you have chronic liver or kidney disease or have ever had astomach ulcer or gastrointestinal bleeding, talk with your healthcare provider before using these medicines. Also talk to your provider if you are taking medicine to prevent blood clots.) Aspirin should never be given to anyone younger than 18 years of age who is ill with a viral infection or fever. It may cause severe liver or brain damage. If you were given antibiotics for an infection, take them until they are used up, or your healthcare provider tells you to stop. It is important to finish the antibiotics even though you feel better.This is to make sure the infection has cleared. Be aware that antibiotics are not usually given fora viral infection or a fever with an unknown cause. Sijl-thv-pksippy medicines will not shorten the duration of the illness. However, they may be helpful for the following symptoms: cough, sore throat, or nasal and sinus congestion. Ask your pharmacist for product suggestions. (Note: Don't use decongestants if you have high blood pressure.) Follow-up care Follow up with your healthcare provider, or as advised. If a culture or other lab tests were done, you will be notified if your treatment needs to be changed. You can call as directed for the results. If X-rays, a CT, or an ultrasound were done, a specialist will review them. You will be notified ofany findings that may affect your care. Call 911 Call 911 if any of these occur: Trouble breathing or swallowing, or wheezing Chest pain Confusion Extreme drowsiness or trouble awakening Fainting or loss of consciousness Rapid heart rate Low blood pressure Vomiting blood, or large amounts of blood in stool Seizure When to seek medical advice Call your healthcare provider right away if any of these occur: Cough with lots of colored sputum (mucus) or blood in your sputum Severe headache Face, neck, throat, or ear pain Feeling drowsy Abdominal pain Repeated vomiting or diarrhea Joint pain or a new rash Burning when urinating Fever of 100.4 F (38 C) or higher, or as directed by your healthcare provider Feeling weak or dizzy [id number] [employer]. [address] [place] [address], [place] [address]. All rights reserved. This information is not intended as a substitute for professional medical care. Always follow yourhealthcare professional's instructions. Fever Control (Adult) A fever is a normal reaction of your body to an illness. The temperature itself usually isn t harmful. It actually helps your body fight infections. You don t need to treat a fever unless you feel very uncomfortable. Home care Follow these tips to take care of yourself at home: If you feel warm, check your temperature. Dress in light clothing. This will help you lose extra body heat through your skin. The fever will go up if you wear extra layers or wrap in blankets. Fever causes your body to lose water through evaporation. Drink plenty of fluids. These include water, juice, clear sodas, arlene matt, or lemonade. Fever medicines You can take acetaminophen every 4 to 6 hours if: You feel very uncomfortable Your oral temperature is 100.4 F (38 C) or higher If you can t take or keep down oral medicine, ask your pharmacist for acetaminophen suppositories. You don t need a prescription for these. If the fever doesn t get better within 1 hour after you take acetaminophen, take ibuprofen. If thisworks, keep taking the ibuprofen every 6 to 8 hours. If you have chronic liver or kidney disease, talk with your healthcare provider before taking thesemedicines. Also talk with your provider if you ever had a stomach ulcer or GI (gastrointestinal) bleeding. If either medicine alone doesn t keep the fever down, you may switch off between the 2 medicines every 3 to 4 hours. But do this only if your healthcare provider has told you to. For example, take ibuprofen. Wait 3 hours. Then take acetaminophen. Wait 3 hours. Take ibuprofen, and so on. Follow yourprovider s instructions exactly. Don't give aspirin to anyone younger than age 19 who is ill with a fever. Aspirin can cause seriousside effects such as liver damage and Neville syndrome. Although rare, Neville syndrome is a very seriousillness usually found in children younger than age 15. The syndrome is closely linked to the use ofaspirin or aspirin-containing medicine during viral infection. Follow-up care Follow up with your healthcare provider if you don't get better after 48 hours. When to seek medical advice Call your healthcare provider right away if any of these occur: Fever, as directed by your healthcare provider, or: oFever of 100.4 F (38 C) or above lasting for 24 to 48 hours oFever lasting more than 3 days, even without other symptoms oFever that happens after visiting a foreign country oFever that happens within a month after visiting a country with malaria. Malaria is a serious illness. A fever can still be malaria even if you took medicine to prevent it. The medicine does not work in all cases If you experience unexplained fever and your immune system is compromised such as by immune suppressing drugs, stem cell or organ transplant, HIV/AIDS, or cancer Confusion or trouble thinking Headache or stiff neck Flat, small, purplish red spots on your skin Low blood pressure Fast heart rate Fast (rapid) breathing You are You just had surgery, another medical procedure, or were just discharged from the hospital Use of medicines that suppress the immune system (immunosuppressants). These include Prednisone, cancer medicines, and organ transplant rejection medicines. If you are not sure about whether your medicines suppress your immune system, ask your healthcare provider. Call 911 Someone should call 911 if you: Are having trouble breathing or shortness of breath Are unresponsive Important reminder Call your healthcare provider if you get a fever after visiting a place where infectious diseases are common. Many people brick picker a cold or other virus while traveling. This usually goes away withouta problem. But, some places have more serious diseases. Fever with certain other symptoms may mean you have a serious illness. Symptoms to watch for include diarrhea, skin rashes, insect bites, and skin boils, or infections. Your provider may ask you: What you did on your trip How long you were there Where you stayed (hotel, [place] house, tent) What you ate and drank If you were bitten by insects or other bugs If you swam in freshwater If you had sex or got a tattoo or piercing while you were there Check the [facility] to get more information about specific infectious diseases in the areas you have traveled. 9628-0279 [employer]. [address] [place] [address], [place] [address]. All rights reserved. This information is not intended as a substitute for professional medical care. Always follow yourhealthcare professional's instructions. Weakness with Uncertain Cause Based on your exam today, the exact cause of your weakness is not certain. But your weakness does not seem to be a sign of a serious illness at this time. Keep an eye on your symptoms and get medicaladvice as instructed below. Home care Rest at home today. Don't over-exert yourself. Take any medicine as prescribed. For the next few days, drink extra fluids (unless your healthcare provider wants you to restrict fluids for other reasons). Don't skip meals. Unless otherwise directed, continue to take any prescription medicines. Contact your healthcare provider if you have any questions or concerns. Follow-up care Follow up with your healthcare provider, or as advised. When to seek medical advice Call your healthcare provider right away for any of the following: Symptoms get worse Symptoms don't start getting better within 2 days Fever of 100.4 F (38 C) or higher, or as directed by your healthcare provider Call 911 Call 911 for any of these: Chest, arm, neck, jaw, or upper back pain Trouble breathing Numbness or weakness of the face, one arm, or one leg Slurred speech, confusion, or trouble speaking, walking, or seeing Blood in vomit or stool (black or red color) Loss of consciousness Severe headache [id number] [employer]. [address] [place] [address]. All rights reserved. This information is not intended as a substitute for professional medical care. Always follow yourhealthcare professional's instructions. Additional Information VACCINATE! IT SAVES LIVES! Members of the community who have not yet received the COVID-19 vaccine and would like to receive it can visit one of [facility] vaccine clinics. There are many vaccine clinic locations within the [facility]. For locations and available times, please visit [email or web address]. It is important to note that some COVID mobile vaccine clinics are held outdoors and may be canceled in rainy orstormy conditions. To learn more about pediatric vaccinations (ages 5-11), we invite you to visit the [facility] webpage. [email or web address] learn more about the COVID-19 vaccine, we invite you to visit the [facility] website for a list of frequently asked questions. [email or web address] [facility] Patient Portal Access Instructions: Stay connected with your healthcare team and access your personal medical information anytime with the [facility] Patient Portal. If you would like a full copy of your medical records please contact the [facility] Medical Records Department Wednesday through Wednesday between 8a.m. and 4:30p.m. Please follow the directions below to access the portal: 1.Access the email account you provided upon registration to the [facility].2.Look for an invitation email from [facility].3.Open the email and access the invitation link: Accept Invitation to [facility]4.Fill in the required tirado to create your account. Sign into [email or web address] with your username and password that you created in the above steps to stay up to date. You can then view a summary of results, a summary of your visits, and the ability to download your summaries to your computer or send the information securely to a physician. Remember that your healthcare information is confidential, so carefully consider who you will allow to register on the [facility] Patient Portal for access to your information. You can also access the [facility] Patient Portal on the [employer]. Simply click on Health Records under [employer] and then click on the [employer] logo. HOW TO SAFELY DISPOSE OF PRESCRIPTION MEDICATIONS Please use one of the following methods to safely dispose of your unused medications. 1.Use a drug disposal kit: the drug disposal pouch allows you to safely discard your old and unuseddrugs. Ask your nurse to give you one when you are discharged.2.Visit a local take-back location: Many local pharmacies and police departments have programs that collect old and unwanted prescriptiondrugs. Call your local pharmacy or go to [email or web address] to find one close to you.3.Make use of household items: Use cat litter or old coffee grounds to dispose medications if other options arenot available. Mix your drugs with these household products, seal them in an airtight container andthrow it into the garbage. Call [facility]: [phone] to be sure your drugs can be disposed of in this way. Some medicines may require a different approach.4.Never flush your medications down the toilet. IF YOU HAVE BEEN PRESCRIBED AN OPIOIDS FOR PAIN If you have been prescribed an opioid (such as hydrocodone, oxycodone or morphine), it is critical to understand the possible side effects and risks of opioid pain medications. Even when taken as directed, opioids can have several side effects including: Tolerance, meaning you might need to take more of a medication for the same pain relief. Nausea, vomiting and/or constipation. Sleepiness, dizziness, dry mouth, confusion, depression or itching. Physical dependence, meaning you have withdrawal symptoms when a medication is stopped ? this can develop within a few days. KNOW YOUR RESPONSIBILITIES It is important to know exactly how much and how often to take the opioid pain medications you are prescribed. Never take opioids in higher amounts or more often than prescribed. Do not combine opioids with alcohol or other drugs that cause drowsiness, such as benzodiazepines, also known as benzos,including diazepam and alprazolam, muscle relaxants or sleep aids. Never sell or share prescriptionopioids. This is illegal. Store opioids in a secure place and out of reach of others (including children, family, friends and visitors). The last page(s) of this document has been signed and retained as a CHART COPY Signatures Patient Education Materials Febrile Illness, Uncertain Cause (Adult) Fever Control (Adult) Weakness (Uncertain Cause) Medication Leaflets My discharge plan and instructions have been reviewed and explained to me and I,MANSI CARO understand my current condition and have read and understand these discharge instructions. I have received a written copy of the plan/instructions. If I have questions, I am aware that I should contact my doctor. 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 The following is importantdischarge information regarding your hospital visit. Diagnosis from Today's Visit Fever Weakness or fatigue What to Do Next Instructions from Your Care Team No qualifying data available. Post Acute Orders No qualifying data available. You Need to Schedule the Following Appointments Follow Up with MARY ALICE, LARY DO When Within 2-4 days Why: Schedule appointment for close follow-up. Drink plenty of fluids and rest. Use Tylenol or Advil for fever as needed. Continue current medications. Return to the ED if symptoms worsen. [facility] [place] [address]- [phone] Allergies NKA Medications Please ask your primary doctor or pharmacist before taking any other medication not listed, including over the counter drugs, herbal medications, vitamins and or supplements as they may interact withyour home medications. What How Much When Why Instructions Last Dose Unchanged ARIPiprazole (Abilify 2 mg oral tablet) 1 tab(s) by mouth Once a day Unchanged aspirin (aspirin 81 mg oral delayed release tablet) 1 tab(s) by mouth Once a day Unchanged baclofen (baclofen 5 mg oral tablet) 2 tab(s) by mouth Every day Unchanged carbonyl iron (Iron Chews) See instructions 18 mcg gummy daily Unchanged carvedilol (carvedilol 3.125 mg oral tablet) 1 tab(s) by mouth Two (2) times a day Unchanged clonazePAM (clonazePAM 1 mg oral tablet) 1 tab(s) by mouth Daily at bedtime Eye twitch Duration: 30 Days Unchanged clopidogrel (Plavix 75 mg oral tablet) 1 tab(s) by mouth Once a day Unchanged furosemide (Lasix 20 mg oral tablet) See instructions 1 tab(s) Oral qDay on Wed, , Wed Unchanged glipiZIDE (glipiZIDE 2.5 mg oral tablet, extended release) 1 tab(s) by mouth Once a day with a meal Unchanged magnesium citrate-melatonin (magnesium (as citrate)-melatonin 71.5 mg- 1 mg oral tablet) See instructions [employer] Brand 84 mg gummy daily Unchanged metFORMIN (metFORMIN 500 mg oral tablet EXTENDED RELEASE) 1 tab(s) by mouth Two (2) times a day Unchanged multivitamin with minerals (Celebrate Multivitamin oral tablet, chewable) 2 tab(s) Chewed Once a day Unchanged oxybutynin (oxybutynin 5 mg/ 24 hours oral tablet, extended release) 1 tab(s) by mouth Once a day Unchanged pantoprazole (pantoprazole 40 mg oral enteric coated tablet) 1 tab(s) by mouth Once a day Unchanged rosuvastatin (rosuvastatin 20 mg oral tablet) 1 tab(s) by mouth Every day Unchanged sacubitril-valsartan (Entresto 24 mg-26 mg oral tablet) 1 tab(s) by mouth Two (2) times a day Unchanged spironolactone (spironolactone 25 mg oral tablet) 0.5 tab(s) by mouth Wednesday / Wednesday / Wednesday Unchanged traZODone (traZODone 50 mg oral tablet) 1 tab(s) by mouth Daily at bedtime Please take this list to your next doctor s visit. Bring all medications you take, including over the counter medications, herbals and other supplements with you to your doctor s visit. Patients and families are reminded to discard old lists and to update any records with all medication providers or retail pharmacies. Education Materials Febrile Illness with Uncertain Cause (Adult) You have a fever, but the cause is unknown. A fever is a natural reaction of the body to an illnesssuch as infection due to a virus or bacteria. Sometimes other conditions such as cancer or immune diseases can cause fever, especially if the fever has lasted for more than a week or 2. In most cases, the temperature itself is not harmful. It actually helps the body fight infections. A fever does not need to be treated unless you feel very uncomfortable. Sometimes a fever can be an early sign of a more serious infection, so make sure to follow up if your condition worsens. Home care Unless given other instructions by your healthcare provider, follow these guidelines when caring for yourself at home. General care If your symptoms are not severe, rest at home for the first 2 to 3 days. When you resume activity, don't let yourself get too tired. For your overall health, don't smoke. Also avoid being exposed to secondhand smoke. Your appetite may be poor, so a light diet is fine. Avoid dehydration by drinking 6 to 8 glasses offluids per day (such as water, soft drinks, sports drinks, juices, tea, or soup). If you have congestion, extra fluids will help loosen secretions in the nose and lungs. Medicines You can take acetaminophen or ibuprofen for pain or to lower your temperature, unless you were given a different medicine to use. (Note: If you have chronic liver or kidney disease or have ever had astomach ulcer or gastrointestinal bleeding, talk with your healthcare provider before using these medicines. Also talk to your provider if you are taking medicine to prevent blood clots.) Aspirin should never be given to anyone younger than 18 years of age who is ill with a viral infection or fever. It may cause severe liver or brain damage. If you were given antibiotics for an infection, take them until they are used up, or your healthcare provider tells you to stop. It is important to finish the antibiotics even though you feel better.This is to make sure the infection has cleared. Be aware that antibiotics are not usually given fora viral infection or a fever with an unknown cause. Kwjw-zxe-nlhdogf medicines will not shorten the duration of the illness. However, they may be helpful for the following symptoms: cough, sore throat, or nasal and sinus congestion. Ask your pharmacist for product suggestions. (Note: Don't use decongestants if you have high blood pressure.) Follow-up care Follow up with your healthcare provider, or as advised. If a culture or other lab tests were done, you will be notified if your treatment needs to be changed. You can call as directed for the results. If X-rays, a CT, or an ultrasound were done, a specialist will review them. You will be notified ofany findings that may affect your care. Call 911 Call 911 if any of these occur: Trouble breathing or swallowing, or wheezing Chest pain Confusion Extreme drowsiness or trouble awakening Fainting or loss of consciousness Rapid heart rate Low blood pressure Vomiting blood, or large amounts of blood in stool Seizure When to seek medical advice Call your healthcare provider right away if any of these occur: Cough with lots of colored sputum (mucus) or blood in your sputum Severe headache Face, neck, throat, or ear pain Feeling drowsy Abdominal pain Repeated vomiting or diarrhea Joint pain or a new rash Burning when urinating Fever of 100.4 F (38 C) or higher, or as directed by your healthcare provider Feeling weak or dizzy [id number] [employer]. [address] [place] [address], [place] [address]. All rights reserved. This information is not intended as a substitute for professional medical care. Always follow yourhealthcare professional's instructions. Fever Control (Adult) A fever is a normal reaction of your body to an illness. The temperature itself usually isn t harmful. It actually helps your body fight infections. You don t need to treat a fever unless you feel very uncomfortable. Home care Follow these tips to take care of yourself at home: If you feel warm, check your temperature. Dress in light clothing. This will help you lose extra body heat through your skin. The fever will go up if you wear extra layers or wrap in blankets. Fever causes your body to lose water through evaporation. Drink plenty of fluids. These include water, juice, clear sodas, arlene matt, or lemonade. Fever medicines You can take acetaminophen every 4 to 6 hours if: You feel very uncomfortable Your oral temperature is 100.4 F (38 C) or higher If you can t take or keep down oral medicine, ask your pharmacist for acetaminophen suppositories. You don t need a prescription for these. If the fever doesn t get better within 1 hour after you take acetaminophen, take ibuprofen. If thisworks, keep taking the ibuprofen every 6 to 8 hours. If you have chronic liver or kidney disease, talk with your healthcare provider before taking thesemedicines. Also talk with your provider if you ever had a stomach ulcer or GI (gastrointestinal) bleeding. If either medicine alone doesn t keep the fever down, you may switch off between the 2 medicines every 3 to 4 hours. But do this only if your healthcare provider has told you to. For example, take ibuprofen. Wait 3 hours. Then take acetaminophen. Wait 3 hours. Take ibuprofen, and so on. Follow yourprovider s instructions exactly. Don't give aspirin to anyone younger than age 19 who is ill with a fever. Aspirin can cause seriousside effects such as liver damage and Neville syndrome. Although rare, Neville syndrome is a very seriousillness usually found in children younger than age 15. The syndrome is closely linked to the use ofaspirin or aspirin-containing medicine during viral infection. Follow-up care Follow up with your healthcare provider if you don't get better after 48 hours. When to seek medical advice Call your healthcare provider right away if any of these occur: Fever, as directed by your healthcare provider, or: oFever of 100.4 F (38 C) or above lasting for 24 to 48 hours oFever lasting more than 3 days, even without other symptoms oFever that happens after visiting a foreign country oFever that happens within a month after visiting a country with malaria. Malaria is a serious illness. A fever can still be malaria even if you took medicine to prevent it. The medicine does not work in all cases If you experience unexplained fever and your immune system is compromised such as by immune suppressing drugs, stem cell or organ transplant, HIV/AIDS, or cancer Confusion or trouble thinking Headache or stiff neck Flat, small, purplish red spots on your skin Low blood pressure Fast heart rate Fast (rapid) breathing You are You just had surgery, another medical procedure, or were just discharged from the hospital Use of medicines that suppress the immune system (immunosuppressants). These include Prednisone, cancer medicines, and organ transplant rejection medicines. If you are not sure about whether your medicines suppress your immune system, ask your healthcare provider. Call 911 Someone should call 911 if you: Are having trouble breathing or shortness of breath Are unresponsive Important reminder Call your healthcare provider if you get a fever after visiting a place where infectious diseases are common. Many people brick picker a cold or other virus while traveling. This usually goes away withouta problem. But, some places have more serious diseases. Fever with certain other symptoms may mean you have a serious illness. Symptoms to watch for include diarrhea, skin rashes, insect bites, and skin boils, or infections. Your provider may ask you: What you did on your trip How long you were there Where you stayed (hotel, [place] house, tent) What you ate and drank If you were bitten by insects or other bugs If you swam in freshwater If you had sex or got a tattoo or piercing while you were there Check the [facility] to get more information about specific infectious diseases in the areas you have traveled. [id number] [employer]. [address] [place] [address], [place] [address]. All rights reserved. This information is not intended as a substitute for professional medical care. Always follow yourhealthcare professional's instructions. Weakness with Uncertain Cause Based on your exam today, the exact cause of your weakness is not certain. But your weakness does not seem to be a sign of a serious illness at this time. Keep an eye on your symptoms and get medicaladvice as instructed below. Home care Rest at home today. Don't over-exert yourself. Take any medicine as prescribed. For the next few days, drink extra fluids (unless your healthcare provider wants you to restrict fluids for other reasons). Don't skip meals. Unless otherwise directed, continue to take any prescription medicines. Contact your healthcare provider if you have any questions or concerns. Follow-up care Follow up with your healthcare provider, or as advised. When to seek medical advice Call your healthcare provider right away for any of the following: Symptoms get worse Symptoms don't start getting better within 2 days Fever of 100.4 F (38 C) or higher, or as directed by your healthcare provider Call 911 Call 911 for any of these: Chest, arm, neck, jaw, or upper back pain Trouble breathing Numbness or weakness of the face, one arm, or one leg Slurred speech, confusion, or trouble speaking, walking, or seeing Blood in vomit or stool (black or red color) Loss of consciousness Severe headache [id number] [employer]. [address] [place] [address]. All rights reserved. This information is not intended as a substitute for professional medical care. Always follow yourhealthcare professional's instructions. Additional Information VACCINATE! IT SAVES LIVES! Members of the community who have not yet received the COVID-19 vaccine and would like to receive it can visit one of [facility] vaccine clinics. There are many vaccine clinic locations within the [facility]. For locations and available times, please visit [email or web address]. It is important to note that some COVID mobile vaccine clinics are held outdoors and may be canceled in rainy orstormy conditions. To learn more about pediatric vaccinations (ages 5-11), we invite you to visit the [facility] webpage. [email or web address]-[email or web address] [email or web address].htmlTo learn more about the COVID-19 vaccine, we invite you to visit the [facility] website for a list of frequently asked questions. [email or web address] _[email or web address] [facility] Patient Portal Access Instructions: Stay connected with your healthcare team and access your personal medical information anytime with the [facility] Patient Portal. If you would like a full copy of your medical records please contact the [facility] Medical Records Department Wednesday through Wednesday between 8a.m. and 4:30p.m. Please follow the directions below to access the portal: 1.Access the email account you provided upon registration to the hospital.2.Look for an invitation email from [facility].3.Open the email and access the invitation link: Accept Invitation to [facility]4.Fill in the required tirado to create your account. Sign into [email or web address] with your username and password that you created in the above steps to stay up to date. You can then view a summary of results, a summary of your visits, and the ability to download your summaries to your computer or send the information securely to a physician. Remember that your healthcare information is confidential, so carefully consider who you will allow to register on the [facility] Patient Portal for access to your information. You can also access the [facility] Patient Portal on the [employer]. Simply click on Health Records under [employer] and then click on the [facility] logo. HOW TO SAFELY DISPOSE OF PRESCRIPTION MEDICATIONS Please use one of the following methods to safely dispose of your unused medications. 1.Use a drug disposal kit: the drug disposal pouch allows you to safely discard your old and unuseddrugs. Ask your nurse to give you one when you are discharged.2.Visit a local take-back location: Many local pharmacies and police departments have programs that collect old and unwanted prescriptiondrugs. Call your local pharmacy or go to http://[employer].SeeVolution/5W2Kq7i to find one close to you.3.Make use of household items: Use cat litter or old coffee grounds to dispose medications if other options arenot available. Mix your drugs with these household products, seal them in an airtight container andthrow it into the garbage. Call [facility]: [phone] to be sure your drugs can be disposed of in this way. Some medicines may require a different approach.4.Never flush your medications down the toilet. IF YOU HAVE BEEN PRESCRIBED AN OPIOIDS FOR PAIN If you have been prescribed an opioid (such as hydrocodone, oxycodone or morphine), it is critical to understand the possible side effects and risks of opioid pain medications. Even when taken as directed, opioids can have several side effects including: Tolerance, meaning you might need to take more of a medication for the same pain relief. Nausea, vomiting and/or constipation. Sleepiness, dizziness, dry mouth, confusion, depression or itching. Physical dependence, meaning you have withdrawal symptoms when a medication is stopped ? this can develop within a few days. KNOW YOUR RESPONSIBILITIES It is important to know exactly how much and how often to take the opioid pain medications you are prescribed. Never take opioids in higher amounts or more often than prescribed. Do not combine opioids with alcohol or other drugs that cause drowsiness, such as benzodiazepines, also known as benzos,including diazepam and alprazolam, muscle relaxants or sleep aids. Never sell or share prescriptionopioids. This is illegal. Store opioids in a secure place and out of reach of others (including children, family, friends and visitors). The last page(s) of this document has been signed and retained as a CHART COPY Signatures Patient Education Materials Febrile Illness, Uncertain Cause (Adult) Fever Control (Adult) Weakness (Uncertain Cause) Medication Leaflets My discharge plan and instructions have been reviewed and explained to me and I,MANSI CARO understand my current condition and have read and understand these discharge instructions. I have received a written copy of the plan/instructions. If I have questions, I am aware that I should contact my doctor. 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 The following is importantdischarge information regarding your hospital visit. Diagnosis from Today's Visit Fever Weakness or fatigue What to Do Next Instructions from Your Care Team No qualifying data available. Post Acute Orders No qualifying data available. You Need to Schedule the Following Appointments Follow Up with LARY WHEAT DO When Within 2-4 days Why: Schedule appointment for close follow-up. Drink plenty of fluids and rest. Use Tylenol or Advil for fever as needed. Continue current medications. Return to the ED if symptoms worsen. Where: [address] [place] [address] [place] [phone] Allergies NKA Medications Please ask your primary doctor or pharmacist before taking any other medication not listed, including over the counter drugs, herbal medications, vitamins and or supplements as they may interact withyour home medications. What How Much When Why Instructions Last Dose Unchanged ARIPiprazole (Abilify 2 mg oral tablet) 1 tab(s) by mouth Once a day Unchanged aspirin (aspirin 81 mg oral delayed release tablet) 1 tab(s) by mouth Once a day Unchanged baclofen (baclofen 5 mg oral tablet) 2 tab(s) by mouth Every day Unchanged carbonyl iron (Iron Chews) See instructions 18 mcg gummy daily Unchanged carvedilol (carvedilol 3.125 mg oral tablet) 1 tab(s) by mouth Two (2) times a day Unchanged clonazePAM (clonazePAM 1 mg oral tablet) 1 tab(s) by mouth Daily at bedtime Eye twitch Duration: 30 Days Unchanged clopidogrel (Plavix 75 mg oral tablet) 1 tab(s) by mouth Once a day Unchanged furosemide (Lasix 20 mg oral tablet) See instructions 1 tab(s) Oral qDay on Wed, , Wed Unchanged glipiZIDE (glipiZIDE 2.5 mg oral tablet, extended release) 1 tab(s) by mouth Once a day with a meal Unchanged magnesium citrate-melatonin (magnesium (as citrate)-melatonin 71.5 mg- 1 mg oral tablet) See instructions [employer] Brand 84 mg gummy daily Unchanged metFORMIN (metFORMIN 500 mg oral tablet EXTENDED RELEASE) 1 tab(s) by mouth Two (2) times a day Unchanged multivitamin with minerals (Celebrate Multivitamin oral tablet, chewable) 2 tab(s) Chewed Once a day Unchanged oxybutynin (oxybutynin 5 mg/ 24 hours oral tablet, extended release) 1 tab(s) by mouth Once a day Unchanged pantoprazole (pantoprazole 40 mg oral enteric coated tablet) 1 tab(s) by mouth Once a day Unchanged rosuvastatin (rosuvastatin 20 mg oral tablet) 1 tab(s) by mouth Every day Unchanged sacubitril-valsartan (Entresto 24 mg-26 mg oral tablet) 1 tab(s) by mouth Two (2) times a day Unchanged spironolactone (spironolactone 25 mg oral tablet) 0.5 tab(s) by mouth Wednesday / Wednesday / Wednesday Unchanged traZODone (traZODone 50 mg oral tablet) 1 tab(s) by mouth Daily at bedtime Please take this list to your next doctor s visit. Bring all medications you take, including over the counter medications, herbals and other supplements with you to your doctor s visit. Patients and families are reminded to discard old lists and to update any records with all medication providers or retail pharmacies. Education Materials Febrile Illness with Uncertain Cause (Adult) You have a fever, but the cause is unknown. A fever is a natural reaction of the body to an illnesssuch as infection due to a virus or bacteria. Sometimes other conditions such as cancer or immune diseases can cause fever, especially if the fever has lasted for more than a week or 2. In most cases, the temperature itself is not harmful. It actually helps the body fight infections. A fever does not need to be treated unless you feel very uncomfortable. Sometimes a fever can be an early sign of a more serious infection, so make sure to follow up if your condition worsens. Home care Unless given other instructions by your healthcare provider, follow these guidelines when caring for yourself at home. General care If your symptoms are not severe, rest at home for the first 2 to 3 days. When you resume activity, don't let yourself get too tired. For your overall health, don't smoke. Also avoid being exposed to secondhand smoke. Your appetite may be poor, so a light diet is fine. Avoid dehydration by drinking 6 to 8 glasses offluids per day (such as water, soft drinks, sports drinks, juices, tea, or soup). If you have congestion, extra fluids will help loosen secretions in the nose and lungs. Medicines You can take acetaminophen or ibuprofen for pain or to lower your temperature, unless you were given a different medicine to use. (Note: If you have chronic liver or kidney disease or have ever had astomach ulcer or gastrointestinal bleeding, talk with your healthcare provider before using these medicines. Also talk to your provider if you are taking medicine to prevent blood clots.) Aspirin should never be given to anyone younger than 18 years of age who is ill with a viral infection or fever. It may cause severe liver or brain damage. If you were given antibiotics for an infection, take them until they are used up, or your healthcare provider tells you to stop. It is important to finish the antibiotics even though you feel better.This is to make sure the infection has cleared. Be aware that antibiotics are not usually given fora viral infection or a fever with an unknown cause. Wzyz-exw-uktahlp medicines will not shorten the duration of the illness. However, they may be helpful for the following symptoms: cough, sore throat, or nasal and sinus congestion. Ask your pharmacist for product suggestions. (Note: Don't use decongestants if you have high blood pressure.) Follow-up care Follow up with your healthcare provider, or as advised. If a culture or other lab tests were done, you will be notified if your treatment needs to be changed. You can call as directed for the results. If X-rays, a CT, or an ultrasound were done, a specialist will review them. You will be notified ofany findings that may affect your care. Call 911 Call 911 if any of these occur: Trouble breathing or swallowing, or wheezing Chest pain Confusion Extreme drowsiness or trouble awakening Fainting or loss of consciousness Rapid heart rate Low blood pressure Vomiting blood, or large amounts of blood in stool Seizure When to seek medical advice Call your healthcare provider right away if any of these occur: Cough with lots of colored sputum (mucus) or blood in your sputum Severe headache Face, neck, throat, or ear pain Feeling drowsy Abdominal pain Repeated vomiting or diarrhea Joint pain or a new rash Burning when urinating Fever of 100.4 F (38 C) or higher, or as directed by your healthcare provider Feeling weak or dizzy [phone] [employer]. [address] [place] [address], [place] [address]. All rights reserved. This information is not intended as a substitute for professional medical care. Always follow yourhealthcare professional's instructions. Fever Control (Adult) A fever is a normal reaction of your body to an illness. The temperature itself usually isn t harmful. It actually helps your body fight infections. You don t need to treat a fever unless you feel very uncomfortable. Home care Follow these tips to take care of yourself at home: If you feel warm, check your temperature. Dress in light clothing. This will help you lose extra body heat through your skin. The fever will go up if you wear extra layers or wrap in blankets. Fever causes your body to lose water through evaporation. Drink plenty of fluids. These include water, juice, clear sodas, arlene matt, or lemonade. Fever medicines You can take acetaminophen every 4 to 6 hours if: You feel very uncomfortable Your oral temperature is 100.4 F (38 C) or higher If you can t take or keep down oral medicine, ask your pharmacist for acetaminophen suppositories. You don t need a prescription for these. If the fever doesn t get better within 1 hour after you take acetaminophen, take ibuprofen. If thisworks, keep taking the ibuprofen every 6 to 8 hours. If you have chronic liver or kidney disease, talk with your healthcare provider before taking thesemedicines. Also talk with your provider if you ever had a stomach ulcer or GI (gastrointestinal) bleeding. If either medicine alone doesn t keep the fever down, you may switch off between the 2 medicines every 3 to 4 hours. But do this only if your healthcare provider has told you to. For example, take ibuprofen. Wait 3 hours. Then take acetaminophen. Wait 3 hours. Take ibuprofen, and so on. Follow yourprovider s instructions exactly. Don't give aspirin to anyone younger than age 19 who is ill with a fever. Aspirin can cause seriousside effects such as liver damage and Neville syndrome. Although rare, Neville syndrome is a very seriousillness usually found in children younger than age 15. The syndrome is closely linked to the use ofaspirin or aspirin-containing medicine during viral infection. Follow-up care Follow up with your healthcare provider if you don't get better after 48 hours. When to seek medical advice Call your healthcare provider right away if any of these occur: Fever, as directed by your healthcare provider, or: oFever of 100.4 F (38 C) or above lasting for 24 to 48 hours oFever lasting more than 3 days, even without other symptoms oFever that happens after visiting a foreign country oFever that happens within a month after visiting a country with malaria. Malaria is a serious illness. A fever can still be malaria even if you took medicine to prevent it. The medicine does not work in all cases If you experience unexplained fever and your immune system is compromised such as by immune suppressing drugs, stem cell or organ transplant, HIV/AIDS, or cancer Confusion or trouble thinking Headache or stiff neck Flat, small, purplish red spots on your skin Low blood pressure Fast heart rate Fast (rapid) breathing You are You just had surgery, another medical procedure, or were just discharged from the hospital Use of medicines that suppress the immune system (immunosuppressants). These include Prednisone, cancer medicines, and organ transplant rejection medicines. If you are not sure about whether your medicines suppress your immune system, ask your healthcare provider. Call 911 Someone should call 911 if you: Are having trouble breathing or shortness of breath Are unresponsive Important reminder Call your healthcare provider if you get a fever after visiting a place where infectious diseases are common. Many people brick picker a cold or other virus while traveling. This usually goes away withouta problem. But, some places have more serious diseases. Fever with certain other symptoms may mean you have a serious illness. Symptoms to watch for include diarrhea, skin rashes, insect bites, and skin boils, or infections. Your provider may ask you: What you did on your trip How long you were there Where you stayed (hotel, [place] house, tent) What you ate and drank If you were bitten by insects or other bugs If you swam in freshwater If you had sex or got a tattoo or piercing while you were there Check the [facility] to get more information about specific infectious diseases in the areas you have traveled. [phone] [employer]. [address] [place] [address]. All rights reserved. This information is not intended as a substitute for professional medical care. Always follow yourhealthcare professional's instructions. Weakness with Uncertain Cause Based on your exam today, the exact cause of your weakness is not certain. But your weakness does not seem to be a sign of a serious illness at this time. Keep an eye on your symptoms and get medicaladvice as instructed below. Home care Rest at home today. Don't over-exert yourself. Take any medicine as prescribed. For the next few days, drink extra fluids (unless your healthcare provider wants you to restrict fluids for other reasons). Don't skip meals. Unless otherwise directed, continue to take any prescription medicines. Contact your healthcare provider if you have any questions or concerns. Follow-up care Follow up with your healthcare provider, or as advised. When to seek medical advice Call your healthcare provider right away for any of the following: Symptoms get worse Symptoms don't start getting better within 2 days Fever of 100.4 F (38 C) or higher, or as directed by your healthcare provider Call 911 Call 911 for any of these: Chest, arm, neck, jaw, or upper back pain Trouble breathing Numbness or weakness of the face, one arm, or one leg Slurred speech, confusion, or trouble speaking, walking, or seeing Blood in vomit or stool (black or red color) Loss of consciousness Severe headache [phone] [employer]. [address] [place] [address]. All rights reserved. This information is not intended as a substitute for professional medical care. Always follow yourhealthcare professional's instructions. Additional Information VACCINATE! IT SAVES LIVES! Members of the community who have not yet received the COVID-19 vaccine and would like to receive it can visit one of [facility] vaccine clinics. There are many vaccine clinic locations within the [facility]. For locations and available times, please visit [email or web address]. It is important to note that some COVID mobile vaccine clinics are held outdoors and may be canceled in rainy orstormy conditions. To learn more about pediatric vaccinations (ages 5-11), we invite you to visit the [facility] webpage. [email or web address] [email or web address].htmlTo learn more about the COVID-19 vaccine, we invite you to visit the [facility] website for a list of frequently asked questions. [email or web address]/[email or web address] _[email or web address].pdf [facility] Patient Portal Access Instructions: Stay connected with your healthcare team and access your personal medical information anytime with the [facility] Patient Portal. If you would like a full copy of your medical records please contact the [facility] Medical Records Department Wednesday through Wednesday between 8a.m. and 4:30p.m. Please follow the directions below to access the portal: 1.Access the email account you provided upon registration to the [facility].2.Look for an invitation email from [facility].3.Open the email and access the invitation link: Accept Invitation to [facility]4.Fill in the required tirado to create your account. Sign into [email or web address] with your username and password that you created in the above steps to stay up to date. You can then view a summary of results, a summary of your visits, and the ability to download your summaries to your computer or send the information securely to a physician. Remember that your healthcare information is confidential, so carefully consider who you will allow to register on the [facility] Patient Portal for access to your information. You can also access the [facility] Patient Portal on the [employer]. Simply click on Health Records under [employer] and then click on the [facility] logo. HOW TO SAFELY DISPOSE OF PRESCRIPTION MEDICATIONS Please use one of the following methods to safely dispose of your unused medications. 1.Use a drug disposal kit: the drug disposal pouch allows you to safely discard your old and unuseddrugs. Ask your nurse to give you one when you are discharged.2.Visit a local take-back location: Many local pharmacies and police departments have programs that collect old and unwanted prescriptiondrugs. Call your local pharmacy or go to http://[employer].SeeVolution/9Q3Ev5a to find one close to you.3.Make use of household items: Use cat litter or old coffee grounds to dispose medications if other options arenot available. Mix your drugs with these household products, seal them in an airtight container andthrow it into the garbage. Call [facility]: [phone] to be sure your drugs can be disposed of in this way. Some medicines may require a different approach.4.Never flush your medications down the toilet. IF YOU HAVE BEEN PRESCRIBED AN OPIOIDS FOR PAIN If you have been prescribed an opioid (such as hydrocodone, oxycodone or morphine), it is critical to understand the possible side effects and risks of opioid pain medications. Even when taken as directed, opioids can have several side effects including: Tolerance, meaning you might need to take more of a medication for the same pain relief. Nausea, vomiting and/or constipation. Sleepiness, dizziness, dry mouth, confusion, depression or itching. Physical dependence, meaning you have withdrawal symptoms when a medication is stopped ? this can develop within a few days. KNOW YOUR RESPONSIBILITIES It is important to know exactly how much and how often to take the opioid pain medications you are prescribed. Never take opioids in higher amounts or more often than prescribed. Do not combine opioids with alcohol or other drugs that cause drowsiness, such as benzodiazepines, also known as benzos,including diazepam and alprazolam, muscle relaxants or sleep aids. Never sell or share prescriptionopioids. This is illegal. Store opioids in a secure place and out of reach of others (including children, family, friends and visitors). The last page(s) of this document has been signed and retained as a CHART COPY Signatures Patient Education Materials Febrile Illness, Uncertain Cause (Adult) Fever Control (Adult) Weakness (Uncertain Cause) Medication Leaflets My discharge plan and instructions have been reviewed and explained to me and I,MANSI CARO understand my current condition and have read and understand these discharge instructions. I have received a written copy of the plan/instructions. If I have questions, I am aware that I should contact my doctor. 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 Pacer/defibrillator device is unchanged. The heart size is borderline. There is no consolidation. Blunting of the costophrenic sinuses may relate to trace pleural fluid or pleural thickening. No aggressive osseous lesions identified. IMPRESSION: Blunting the costophrenic sinuses may relate to trace pleural fluid or pleural thickening Interpreted by: Arnold Barrientos MD Preliminary Report By: Arnold Barrientos MD Electronically signed By Arnold Barrientos MD Dictated Date: 05/22/2022 1:12:04 PM Prelim Date: 05/22/2022 1:15:33 PM Sign Date: 05/22/2022 1:15:33 PM Ordering Provider: [facility]07-01-2022 Note ORIGINAL EXAMINATION: ONE XRAY VIEW OF THE CHEST05/22/2022 1:06 pm COMPARISON: 05/13/2022 HISTORY: ORDERING SYSTEM PROVIDED HISTORY: Reason for Exam: SOB/cough/fever FINDINGS: The cardiomediastinal contours are normal. Pacer/defibrillator device is unchanged. The heart size is borderline. There is no consolidation. Blunting of the costophrenic sinuses may relate to trace pleural fluid or pleural thickening. No aggressive osseous lesions identified. IMPRESSION: Blunting the costophrenic sinuses may relate to trace pleural fluid or pleural thickening Interpreted by: Arnold Barrientos MD Preliminary Report By: Arnold Barrientos MD Electronically signed By Arnold Barrientos MD Dictated Date: 05/22/2022 1:12:04 PM Prelim Date: 05/22/2022 1:15:33 PM Sign Date: 05/22/2022 1:15:33 PM Ordering Provider: [facility]06-10-2022 Miscellaneous Notes* Telephone Encounter - Humaira Wetzel - 05/01/2022 11:14 AM EDT Mr. Pena, of Ms. Caro was called and he scheduled an appointment on 06/04/[address] Gusman at the [facility] for f2f appointment. Aware the Rx is only good for 1 month. Patient developed a heart condition in October 2021. * Telephone Encounter - Ghazala Gusman MD - 05/01/2022 9:26 AM EDT She will need to schedule F2F f/u. I will give her 1 month refill until make sure she sets up follow up * Telephone Encounter - Humaira Wetzel - 05/01/2022 8:21 AM EDT Patient last visit [facility] on 10/30/2021; Last f2f on 07/10/2021. Last refill on 10/30/2021 Mrs. Caro has increased the baclofen 5 mg. To 4 x per day. 2 pills in AM and 2 pills in PM. If you agree, please can you increase her prescription from x3 per day to 4 x per day? She is afraid of running out too soon at the end of the month. This almost happened last month. She has enough medication until the last week of this month. Patient phones requesting refills as follows: Pending Prescriptions Disp Refills BACLOFEN 5 MG TABLET 90 tablet 5 Sig: Take 1 tablet by mouth three times daily. Do not abruptly stop if at high dose, risk for withdrawal seizures. JACKELYN: No Please review and advise. Humaira Wetzel [facility] Hospital Discharge instructions Patient Education 04/25/2022 23:46:26 Myalgias Myalgias Myalgias are another word for muscle aches and soreness. This is a symptom, not a disease. Myalgiascan have many causes. A cold, the flu, or an acute infection can cause them. So can any illness with a high fever. They may happen after exertion (such as heavy exercise) or injury (such as an accident or fall). Some medicines (such as statins and certain antidepressants) can cause myalgias. They can also be a symptom of chronic or ongoing medical problems (such as lupus, chronic fatigue, or hypothyroidism). With these illnesses, other serious symptoms often occur in addition to muscle pain andsoreness. Myalgias most often go away on their own. If they don't go away, come back, or are severe, testing may be needed to help find the cause. Home care Rest until you feel better. Follow instructions that you were given for how to care for yourself. This may depend on the cause of your myalgias. If myalgia is thought to be due to a medicine, be sure to talk to the doctor that prescribed the medicine about the best course of action. To control pain, take prescription or xqyz-pvr-onkyilb medicines as directed. Unless told not to, you can try acetaminophen or ibuprofen. Follow-up care Follow up with your healthcare provider or as advised. If your symptoms do not go away in a few days or if they come back, follow up with your healthcare provider for an exam and testing. When to see medical advice Call your healthcare provider for any of the following: Fever of 100.4 F (38 C) or higher, or as directed by your healthcare provider Pain that gets worse and not better, or that goes away and comes back New joint pains New rash Severe headache, neck pain, drowsiness, or confusion [id number] [employer]. [address] [place] [address]. All rights reserved. This information is not intended as a substitute for professional medical care. Always follow yourhealthcare professional's instructions. Follow Up Care 04/25/2022 23:32:02 With:Go to emergency room if symptoms worsen Address:Unknown When:2-4 days With:LARY WHEAT DO Address: [address] [place] [address] [place] [address] [phone] When:2-4 days [facility] 03-17-2022 Miscellaneous Notes* Telephone Encounter - Pina Euceda - 02/05/2022 8:10 AM EDT Patient Song Chavez calling in stating him and the patient have questions about the medication Baclofen (Lioresal) that was prescribed. Please advise [facility] Hospital Discharge instructions Patient Education 12/25/2021 14:06:01 Heart Failure, Diagnosis, [id number] Heart Failure, Diagnosis Heart failure means that your heart is not able to pump blood in the right way. This makes it hard for your body to work well. Heart failure is usually a long- term (chronic) condition. You must take good care of yourself and follow your treatment plan from your doctor. What are the causes? This condition may be caused by: High blood pressure. Build up of cholesterol and fat in the arteries. Heart attack. This injures the heart muscle. Heart valves that do not open and close properly. Damage of the heart muscle. This is also called cardiomyopathy. Lung disease. Abnormal heart rhythms. What increases the risk? The risk of heart failure goes up as a person ages. This condition is also more likely to develop in people who: Are overweight. Are male. Smoke or chew tobacco. Abuse alcohol or illegal drugs. Have taken medicines that can damage the heart. Have diabetes. Have abnormal heart rhythms. Have thyroid problems. Have low blood counts (anemia). What are the signs or symptoms? Symptoms of this condition include: Shortness of breath. Coughing. Swelling of the feet, ankles, legs, or belly. Losing weight for no reason. Trouble breathing. Waking from sleep because of the need to sit up and get more air. Rapid heartbeat. Being very tired. Feeling dizzy, or feeling like you may pass out (faint). Having no desire to eat. Feeling like you may vomit (nauseous). Peeing (urinating) more at night. Feeling confused. How is this treated? This condition may be treated with: Medicines. These can be given to treat blood pressure and to make the heart muscles stronger. Changes in your daily life. These may include eating a healthy diet, staying at a healthy body weight, quitting tobacco and illegal drug use, or doing exercises. Surgery. Surgery can be done to open blocked valves, or to put devices in the heart, such as pacemakers. A donor heart (heart transplant). You will receive a healthy heart from a donor. Follow these instructions at home: Treat other conditions as told by your doctor. These may include high blood pressure, diabetes, thyroid disease, or abnormal heart rhythms. Learn as much as you can about heart failure. Get support as you need it. Keep all follow-up visits as told by your doctor. This is important. Summary Heart failure means that your heart is not able to pump blood in the right way. This condition is caused by high blood pressure, heart attack, or damage of the heart muscle. Symptoms of this condition include shortness of breath and swelling of the feet, ankles, legs, or belly. You may also feel very tired or feel like you may vomit. You may be treated with medicines, surgery, or changes in your daily life. Treat other health conditions as told by your doctor. This information is not intended to replace advice given to you by your health care provider. Make sure you discuss any questions you have with your health care provider. Document Released: 08/17/2009 Document Revised: 01/26/2020 Document Reviewed: 01/26/2020 [employer] Patient Education 2020 [employer]. Follow Up Care 12/24/2021 01:51:28 With:JAC CHRISTENSEN MD Address: [address] [place] [address] [address] [facility] [place] [address]- [phone] When:12/30/2021 10:15:00 Comments:THIS APPOINTMENT WILL BE WITH REI ALFONSO [facility] 02-02-2022 Evaluation + Plan noteExtracted from: Title:History and Physical Author:CASIMIRO LEE MD Date:12/24/21 1. Acute on chronic systolic heart failure 2. Ischemic cardiomyopathy with EF 25-30% 3. Multivessel coronary artery disease 4. History of CAD status post PCI with TANMAY to the OM 5. Left bundle branch block 6. Mild to moderate mitral gravitation 7. Chronic anemia 8. History of CVA with residual deficits I did review the patient's CAT scan which is showing bilateral pleural effusions with right greater than the left. She does appear to be volume overloaded on clinical examination. Agree with continued diuresis with Lasix 40 mg IV twice daily. She is net -1500 cc since admission. She has been on only 20 of Lasix as needed at home. We'll need to adjust diuretic therapy likely on discharge. We'll continue with 2 g unrestricted diet 1800 cc fluid restriction. May require thoracentesis if inadequate we diuresis. We'll check a chest x-ray likely tomorrow following diuresis. We'll check a BMP to evaluate electrolytes and renal function she did have acute kidney injury on her last hospital stay. Should continue with guideline directed medical therapy including Toprol-XL as well as ramipril. We'll give consideration to adding Aldactone during this hospital course. For coronary artery disease we'll continue with dual antiplatelet therapy with aspirin Plavix as well as high intensity statin. Addendum by MEGHANN HALEY MD on December 24, 2021 22:43:33 EST I have personally seen, examined, and evaluated the patient on the encounter date. I have reviewed the fellow s documentation and agree with the fellow s findings and plan as documented, unless otherwise stated. Future Appointments Appointment Date:12/30/2021 10:15:00 AM Scheduled Provider:REI ALFONSO Location:[facility] Appointment Type:CV OV Appointment Date:2022 11:00:00 AM Scheduled Provider: Location:[facility] Appointment Type:CV OV Appointment Date:02/12/2022 11:00:00 AM Scheduled Provider:LARY WHEAT DO Location:[facility] Appointment Type:PC OV Future Scheduled Tests Laboratory* Complete Blood Count 12/09/21 * Complete Metabolic Panel 12/09/21 [facility] 01-14-2022 Hospital Discharge instructions Patient Education 12/05/2021 13:07:47 Shortness of Breath, Adult Shortness of Breath, Adult Shortness of breath is when a person has trouble breathing enough air or when a person feels like she or he is having trouble breathing in enough air. Shortness of breath could be a sign of a medicalproblem. Follow these instructions at home: Pay attention to any changes in your symptoms. Do not use any products that contain nicotine or tobacco, such as cigarettes, e- cigarettes, and chewing tobacco. Do not smoke. Smoking is a common cause of shortness of breath. If you need help quitting, ask yourhealth care provider. Avoid things that can irritate your airways, such as: ?Mold. ?Dust. ?Air pollution. ?Chemical fumes. ?Things that can cause allergy symptoms (allergens), if you have allergies. Keep your living space clean and free of mold and dust. Rest as needed. Slowly return to your usual activities. Take ytlr-pvt-tesfocb and prescription medicines only as told by your health care provider. This includes oxygen therapy and inhaled medicines. Keep all follow-up visits as told by your health care provider. This is important. Contact a health care provider if: Your condition does not improve as soon as expected. You have a hard time doing your normal activities, even after you rest. You have new symptoms. Get help right away if: Your shortness of breath gets worse. You have shortness of breath when you are resting. You feel light-headed or you faint. You have a cough that is not controlled with medicines. You cough up blood. You have pain with breathing. You have pain in your chest, arms, shoulders, or abdomen. You have a fever. You cannot walk up stairs or exercise the way that you normally do. These symptoms may represent a serious problem that is an emergency. Do not wait to see if the symptoms will go away. Get medical help right away. Call your local emergency services (911 in the [place] Do not drive yourself to the hospital. Summary Shortness of breath is when a person has trouble breathing enough air. It can be a sign of a medical problem. Avoid things that irritate your lungs, such as smoking, pollution, mold, and dust. Pay attention to changes in your symptoms and contact your health care provider if you have a hard time completing daily activities because of shortness of breath. This information is not intended to replace advice given to you by your health care provider. Make sure you discuss any questions you have with your health care provider. Document Released: 08/03/2002 Document Revised: 04/10/2019 Document Reviewed: 04/10/2019 [employer] Patient Education 2020 [employer] Follow Up Care 11/22/2021 03:48:42 With:LARY WHEAT DO Address: [address] [place] [address]- [phone] When:1-2 days Comments:PLEASE CALL THIS OFFICE TO SCHEDULE A HOSPITAL FOLLOW UP APPOINTMENT. With:HARISH GIFFORD [employer] COACH-CAREER DEVELOPMENT SPECIALIST Address: [address] [place] [address] [address] [place] [address]- [phone] When:12/12/2021 Comments:This is your heart failure appointment. An appointment with your stock repairer will be made at this visit. With:[facility] Address: [address] [place] [address]- When: Unknown Comments:The Cardiac Rehab department will call you in 4-5 weeks to schedule you for phase 2. We left you a brochure with information about cardiac rehab. If you have any questions please call [phone]. With:JAC CHRISTENSEN MD Address: [address] [facility] [address] [place] [address]- [phone] When:2022 11:00:00 [facility] 01-06-2022 HCoV 229E RNA ENRIQUE+non-probe Ql (Nph)Not Detected *NA* (11/27/21 12:42 PM) [employer]ero [id number] Evaluation + Plan noteExtracted from: Title:Critical care history and Physical Author: GEO SAHA MD Date:11/22/21 #Acute hypoxic respiratory f ailure secondary to pneumonia #Severe sepsis secondary to pneumonia #History of HTN #CKD stage III #DM #HLD #DVT prophylaxis #Full code #Acute hypoxic respiratory failure secondary to pneumonia #Severe sepsis secondary to pneumonia Chest x-ray showed bilateral consolidation, right more than left with small right effusion. CTA was done and ruled out PE, showed moderate bilateral pleural effusion with mild patchy area of infiltrate scattered through both lungs. Infiltrates are clear consistent with pneumonia. There is atelectasis associated with pleural fluid. ABG showed: pH: 7.282/PCO2: 45.3/PO2: 189/O2 sat: 100. - Vent setting : AC 16/450/55/5 - repeat ABG WBC: 10.6, temp: 36.5, O2 sat: 88 on 6 L prior to intubation Covid test was negative Patient is intubated. We will continue with sedation and mechanical ventilation We will send blood culture, sputum culture, urine culture Urinalysis Patient received 1 L IV hydration, Rocephin, levofloxacin at [place]. We will start patient on broad-spectrum antibiotic therapy and will escalate or de-escalate based on culture results IV hydration We will monitor CBC With the concern of Covid pneumonia we will place patient on isolation and repeat Covid test. #DM BS: 193 Glycemic protocol #CKD stage III BUN/CR: 05/12, K: 3.6 GFR: 55 We will replete potassium and monitor BMP #DVT prophylaxis: Lovenox#Full code Addendum by MARTHA PILLAI MD on November 22, 2021 18:36:15 EST I independently examined the patient and agree with the statements above. I discussed the case with the patient's at bedside who reports that the patient went to [place] starting on 11/08 and began to develop a cough and congestion with wheezing that persisted for several days. They went to see a physician who prescribed a course of azithromycin that did not improve the symptoms. By report the patient's were largely indoors visiting family without any outdoor activities such as hiking or [place] in the [place]. Bedside echocardiogram performed today reveals what appears to be moderately reduced EF and plethoric IVC. PHYSICAL EXAM: - GENERAL: Calm, no distress, the patient arouses to voice - HEENT: Endotracheally Intubated. Moist mucous membranes. - LUNGS: Bilateral breath sounds, no wheezes - CARDIOVASCULAR: Regular rate and rhythm. - ABDOMEN: Soft, non-tender and non-distended. - EXTREMITIES: No edema. - SKIN: No rashes or lesions. Warm. - NEUROLOGIC: Sedated, calm, alert to voice - PSYCHIATRIC: Sedated, calm Acute hypoxic respiratory failure requiring mechanical ventilation Bilateral pleural effusions Bilateral patchy infiltrates with smooth interlobular septal thickening and dependent edema concerning for cardiogenic pulmonary edema Comorbidities include hypertension, CKD, diabetes, hyperlipidemia Shock possible sepsis, possible component of cardiogenic Possible pneumonia Plan: Continue VAP prevention, glycemic, sedation protocols Currently on low-dose propofol Daily SBT, daily SAT Formal echocardiogram Treatment for community-acquired pneumonia currently on levofloxacin and ceftriaxone, which were continued from [place] ED. Can de-escalate to levofloxacin Order brain natriuretic peptide Empiric dose of IV furosemide 40 mg Repeat Covid test negative We will follow up blood and respiratory culture data GI prophylaxis with famotidine DVT prophylaxis with Lovenox Full code 35 minutes of critical care time Future Appointments Appointment Date:02/12/2022 11:00:00 AM Scheduled Provider:LARY WHEAT DO Location:[facility] Appointment Type:PC OV Diagnostic Tests Pending * Blood Culture (bacterial) 11/22/21 * Blood Culture (bacterial) 11/22/21 [facility] 04-02-2015 History of Past illness Narrative* Problem Noted Date Resolved Date Personal history of colonic polyps 02/21/2015 02/21/2015 documented as of this encounter (statuses as of 03/16/2022) [address] History of Past illness Narrative* Problem Noted Date Resolved Date Personal history of colonic polyps 02/21/2015 02/21/2015 documented as of this encounter (statuses as of 05/01/2022) [address] History of Past illness Narrative* Problem Noted Date Resolved Date Personal history of colonic polyps 02/21/2015 02/21/2015 documented as of this encounter (statuses as of 06/04/2022) [address] History of Past illness Narrative* Problem Noted Date Resolved Date Personal history of colonic polyps 02/21/2015 02/21/2015 documented as of this encounter (statuses as of 06/25/2022) [address] History of Past illness Narrative* Problem Noted Date Resolved Date Personal history of colonic polyps 02/21/2015 02/21/2015 documented as of this encounter (statuses as of 07/02/2022) [address] History of Past illness Narrative* Problem Noted Date Resolved Date Personal history of colonic polyps 02/21/2015 02/21/2015 documented as of this encounter (statuses as of 08/10/2022) [address] History of Past illness Narrative* Problem Noted Date Resolved Date Personal history of colonic polyps 02/21/2015 02/21/2015 documented as of this encounter (statuses as of 10/12/2022) [address] History of Past illness Narrative* Problem Noted Date Resolved Date Personal history of colonic polyps 02/21/2015 02/21/2015 documented as of this encounter (statuses as of 11/05/2022) [address] History of Past illness Narrative* Problem Noted Date Resolved Date Personal history of colonic polyps 02/21/2015 02/21/2015 documented as of this encounter (statuses as of 05/14/2023) [address] History of Past illness Narrative* Problem Noted Date Resolved Date Personal history of colonic polyps 02/21/2015 02/21/2015 documented as of this encounter (statuses as of 05/18/2023) [address] History of Past illness Narrative* Problem Noted Date Diagnosed Date Resolved Date Personal history of colonic polyps 02/21/2015 02/21/2015 documented as of this encounter (statuses as of 07/01/2023) [address] History of Past illness Narrative* Problem Noted Date Diagnosed Date Resolved Date Personal history of colonic polyps 02/21/2015 02/21/2015 documented as of this encounter (statuses as of 07/21/2023) [address] History of Past illness Narrative* Problem Noted Date Diagnosed Date Resolved Date Personal history of colonic polyps 02/21/2015 02/21/2015 documented as of this encounter (statuses as of 09/22/2023) [address] History of Past illness Narrative* Problem Noted Date Diagnosed Date Resolved Date Personal history of colonic polyps 02/21/2015 02/21/2015 documented as of this encounter (statuses as of 09/22/2023) [address] History of Past illness Narrative* Problem Noted Date Diagnosed Date Resolved Date Personal history of colonic polyps 02/21/2015 02/21/2015 documented as of this encounter (statuses as of 10/22/2023) [address] History of Past illness Narrative* Problem Noted Date Diagnosed Date Resolved Date Personal history of colonic polyps 02/21/2015 02/21/2015 documented as of this encounter (statuses as of 10/23/2023) [facility] Talat Cameron [facility] October 01, 2023 2:08pm Note Date/Time October 01, 2023 2:08pm [facility] Medical Records Department [address] [place] [address] Counseling Note - Pharmacy 10/01/23 1408 MR#: [id number] Acct: [id number] Name: MANSI CARO Rep #:[id number] : 1955 68 From: Talat Cameron PCP: Dr. Adrienne Byers, DO Status:ADM IN Y Location: [place] [address] Pharmacy [place] Med Reconciliation Pharmacy Service has performed discharge medication reconciliation for this patient. The patient's discharge medication list was reviewed for discrepancies and discrepancies were resolved. 10/01/23 1408 <Electronically signed by Talat knight> Date _ Talat Cameron Cosigner Signature (if applicable): Date CC: ~ Signed [facility] Work Phone: Consult note Author Carlotta Singletary [facility] October 12, 2023 11:48am Note Date/Time October 12, 2023 11:40am [facility] Medical Records Department [address] [place] [address] Counseling Note - Pharmacy 10/12/23 1139 MR#: [id number] Acct: [id number] Name: MANSI CARO Rep #:[id number] : 1955 68 From: Carlotta Singletary PCP: Dr. Adrienne Byers, DO Status:ADM ANGELIA Y Location: [place] [address] Pharmacy [place] Med Reconciliation Pharmacy Service has performed discharge medication reconciliation for this patient. The patient's discharge medication list was reviewed for discrepancies and discrepancies were resolved. Medications at Discharge Home Medications citalopram 20 mg tablet 20 mg PO QHS depression 11/18/14 clonazepam 1 mg tablet 1 mg PO QHS anxiety 11/18/14 metformin 500 mg tablet 500 mg PO DAILY diabetes 11/18/14 multivitamin with folic acid 400 mcg tablet (Thera) 1 tab PO DAILY vitamin 11/18/14 trazodone 50 mg tablet 50 mg PO DAILY PRN Anxiety 11/18/14 clopidogrel 75 mg tablet 1 tab PO QHS anti platelet 05/18/16 empagliflozin 10 mg tablet (Jardiance) 10 mg PO DAILY diabetes 09/28/23 metoprolol succinate 25 mg tablet,extended release 24 hr 12.5 mg PO DAILY blood pressure 09/28/23 pantoprazole 40 mg tablet,delayed release 40 mg PO BID stomach acid 09/28/23 sacubitril-valsartan 0.5 tab PO BID HTN 09/28/23 cholecalciferol (vitamin D3) 25 mcg (1,000 unit) tablet 50 mcg (2 x 25 mcg (1,000 unit)) PO QHS supplement #0 tabs 09/30/23 aspirin 81 mg tablet,delayed release 81 mg PO DAILY heart 10/01/23 atorvastatin 40 mg tablet 40 mg PO QHS CHOLESTEROL 10/07/23 baclofen 10 mg tablet 10 mg PO BID MUSCLE SPASMS 10/07/23 enoxaparin 40 mg/0.4 mL subcutaneous syringe 40 mg subcut 0600 BLOOD THINNER 10/07/23 spironolactone 25 mg tablet 12.5 mg PO MOWEFR FLUID 10/07/23 10/12/23 1148 <Electronically signed by Carlotta Singletary> Date _ Carlotta Gallo Signature (if applicable): Date CC: ~ Signed [facility] Work Phone: Consult note Author Talat Cameron [facility] February 29, 2024 11:45am Note Date/Time February 29, 2024 11:4 5am [facility] Medical Records Department [address] [place] [address] [place] [address] Counseling Note - Pharmacy 02/29/24 1145 MR#: [id number] Acct: [id number] Name: MANSI CARO Rep #:[id number] : 1955 69 From: Talat Cameron PCP: Dr. Adrienne Byers, DO Status:ADM IN Y Location: MS3 [id number] Pharmacy HI Med Reconciliation Pharmacy Service has performed discharge medication reconciliation for this patient. The patient's discharge medication list was reviewed for discrepancies and discrepancies were resolved. Medications at Discharge Home Medications citalopram 20 mg tablet 20 mg PO QHS depression 11/18/14 clonazepam 1 mg tablet 1 mg PO QHS anxiety 11/18/14 multivitamin with folic acid 400 mcg tablet (Thera) 1 tab PO DAILY vitamin 11/18/14 trazodone 50 mg tablet 50 mg PO DAILY PRN Anxiety 11/18/14 clopidogrel 75 mg tablet 1 tab PO QHS anti platelet 05/18/16 empagliflozin 10 mg tablet (Jardiance) 10 mg PO DAILY diabetes 09/28/23 metoprolol succinate 25 mg tablet,extended release 24 hr 12.5 mg PO DAILY blood pressure 09/28/23 pantoprazole 40 mg tablet,delayed release 40 mg PO BID stomach acid 09/28/23 cholecalciferol (vitamin D3) 25 mcg (1,000 unit) tablet 50 mcg (2 x 25 mcg (1,000 unit)) PO QHS supplement #0 tabs 09/30/23 aspirin 81 mg tablet,delayed release 81 mg PO DAILY heart 10/01/23 spironolactone 25 mg tablet 12.5 mg PO MOWEFR FLUID 10/07/23 baclofen 5 mg tablet 5 mg PO BID 02/21/24 calcium carbonate 600 mg-vitamin D3 10 mcg (400 unit) tablet 1 tab PO BID 02/21/24 escitalopram oxalate 10 mg tablet 10 mg PO DAILY 02/21/24 metformin 500 mg tablet,extended release 24 hr 500 mg PO DAILY 02/21/24 oxybutynin chloride 5 mg tablet,extended release 24 hr 5 mg PO DAILY 02/21/24 rosuvastatin 20 mg tablet 20 mg PO QHS 02/21/24 sacubitril 24 mg-valsartan 26 mg tablet (Entresto) 0.5 tab PO BID 02/21/24 acetaminophen 325 mg tablet 650 mg (2 x 325 mg) PO Q4H PRN PRN Fever, pain 1- 08/31 #0 tabs 02/29/24 bisacodyl 5 mg tablet,delayed release 5 mg PO BID #0 tabs 02/29/24 budesonide 3 mg capsule,delayed,extended release 9 mg (3 x 3 mg) PO DAILY #0 ea 02/29/24 dicyclomine 10 mg capsule 20 mg (2 x 10 mg) PO TIDAC #0 caps 02/29/24 polyethylene glycol 3350 17 gram/dose oral powder (Miralax) 17 g PO DAILY 1 month #510 grams 02/29/24 vancomycin 25 mg/mL oral solution (Firvanq) 125 mg (5 mL) PO Q6 10 days #200 mL 02/29/24 02/29/24 1145 <Electronically signed by Talat knight> Date _ Talat Cameron Cosigner Signature (if applicable): Date CC: ~ Signed [facility] Work Phone: Discharge summary Author Romeo [facility] Note Date/Time April 19, 2025 11:06 am [facility] Medical Records Department [address] [place] [address] Emergency Department Summary 04/19/25 MR#: [id number] Acct: [id number] Name: MANSI CARO Rep #:[id number] : 1955 70 From: Romeo Padron DO PCP: Marci Lopez DO Status:REG E R Location: ED ADDENDUM by Dr. Bossman Sanders DO on 04/19/25 at 1106 Patient care turned over to ga awaiting evaluation by social services aide for placement to [facility] facility. Patient was evaluated by social services aide and it was recommended that patient be admitted for precertification and admission to [facility] facility. Will discuss case with hospitalist to evaluate patient for admission. 04/19/25 1106<Electronically signed by Bossman Sadners DO> Cosigner Signature (if applicable): cc: Marci Lopez DO ~* Signed HPI History of Present Illness Chief Complaint: Weakness Informant: patient and spouse/S.O. Narrative Narrative: Patient is a 70-year-old female with past medical history of ischemic colitis hyperlipidemia hypertension and previous CVA. The patient typically walks with a walker at baseline. states that she has not been eating or drinking well for multiple weeks. This evening/morning the patient was too weak to get out of bed on her own. She typically uses a walker to ambulate and even at homewith the help of the walker she was too weak to support herself. The patient and state that there has been no changes to her home medication that shehas been taking them as directed. The patient denies any fevers or chills but does states she has had irritation with urination which makes her concerned for a UTI. Therefore at this time with her increasing generalized weakness and her inability to ambulate on her own at her baseline and concern for developing infection she was brought in for evaluation [facility] Medical History Ischemic colitis History of left heart catheterization History of mechanical ventilation Cardiogenic pulmonary edema Acute hypoxic respiratory failure Multiple lung nodules Major depressive disorder Left bundle branch block NSTEMI (non-ST elevated myocardial infarction) GERD (gastroesophageal reflux disease) Diabetic peripheral vascular disease Diabetic nephropathy Chronic kidney disease (CKD) Bleeding ulcer Anxiety Dyslipidemia Chronic systolic heart failure Pacemaker Congestive heart failure (CHF) Cerebral palsy Anxiety and depression Heart failure with reduced ejection fraction Insomnia Transient ischemic attack AV node dysfunction Ischemic cardiomyopathy Presence of biventricular implantable cardioverter-defibrillator Ulcer Restless legs High cholesterol Former smoker ICD (implantable cardioverter-defibrillator) in place Coronary artery disease CVA (cerebral vascular accident) PFO (patent foramen ovale) Cardiac resynchronization therapy defibrillator (HEAD BELLHOP CAPTAIN-D) in place Myocarditis Hyperlipidemia Hypertension Home Medications ?Medication ?Instructions ?Recorded ?Last Taken ?Type clonazepam 1 mg tablet 1 mg PO QHS anxiety 11/18/14 07/02/24 History trazodone 50 mg tablet 50 mg PO DAILY Anxiety 11/1807/02/24 History cholecalciferol (vitamin D3) 25 50 mcg (2 x 25 mcg (1, 000 unit)) 09/30/23 07/02/24 Rx mcg (1,000 unit) tablet PO QHS supplement #0 tabs aspirin 81 mg tablet,delayed 81 mg PO .COMPLEX heart 1 12/01/22 07/02/24 History release rosuvastatin 20 mg tablet 20 mg PO QHS cholesterol 12/1507/02/24 History clopidogrel 75 mg tablet 75 mg PO DAILY #0 tabs 03/1307/02/24 Rx acetaminophen 500 mg tablet 500 mg PO Q6H PRN PRN Pain Score 06/13/24 07/01/24 History 1-10 docusate sodium 100 mg capsule 100 mg PO DAILY PRN con stipation 06/13/24 07/02/24 History furosemide 20 mg tablet 20 mg PO QDAY PRN for 2lb we ight 06/13/24 06/19/24 History gain pantoprazole 40 mg tablet,delayed 40 mg PO DAILY 07/17 Unknown History release baclofen 5 mg tablet 5 mg PO QDAY muscle spasms 0 08/03/24 Unknown History albuterol sulfate 90 mcg/actuation 1 puff inhalation Q 6H PRN 09/09/24 Unknown Rx aerosol inhaler shortness of breath or wheez ing #8.5 grams escitalopram oxalate 5 mg tablet 5 mg PO QDAY 11/28/24 Unknown History polyethylene glycol 3350 17 17 g PO BID 11/28/24 Unkno wn History gram/dose oral powder (Miralax) linaclotide 72 mcg capsule 72 mcg PO QAM #90 caps 11/23 12/16 Unknown Rx (Linzess) metformin 500 mg tablet 500 mg PO QDAY 01/18/25 Unkn own History metoprolol succinate 25 mg 25 mg PO QDAY 01/18/25 Unkn own History tablet,extended release 24 hr (Toprol XL) lamotrigine 100 mg tablet 100 mg PO QDAY 01/23/25 Unkn own History polyethylene glycol 400 0.25 % eye drp ophthalmic (eye ) 01/23/25 Unknown History gel drops (Blink Gel Tears) ferrous sulfate 325 mg (65 mg 325 mg PO QDAY 02/13/25 Unknown History iron) tablet (Feosol) linaclotide 145 mcg capsule 145 mcg PO QAM #60 caps Unknown Rx (Linzess) hyoscyamine sulfate 0.125 mg tablet 0.125 mg PO TID ND N dyspepsia #90 03/05/25 Unknown Rx tabs oxycodone-acetaminophen 5 mg-325 1 tab PO Q6H PRN PRN severe pain 04/19/25 Unknown History mg tablet Allergy/AdvReac Type Severity Reaction Status Date / Time No Known Allergies Allergy Verified 04/19/25 03:35 Family History Father Heart disease Myocardial infarction Mother Anxiety and depression Suicide and self-inflicted injury from suicide age 52. Surgical History Presence of stent in coronary artery History of bilateral cataract extraction History of skin surgery S/P colon polypectomy History of cardiac defibrillator placement History of cholecystectomy History of coronary artery stent placement Social History household members: spouse Smoking Status: Former smoker how long ago did patient quit smokin-1.5 ppd from teen until quit in 2008. alcohol intake: never substance use type: does not use caffeine: Yes seatbelt use: always do you feel safe at home: Yes additional social history: - [facility] ED Constitutional Constitutional ED: Denies chills or fever(s) Eyes Eyes: Denies change in vision ENT ENT ED: Denies sore throat Cardiovascular Cardiovascular: Denies chest pain Respiratory/Chest Respiratory/Chest: Denies cough or dyspnea Gastrointestinal Gastrointestinal: Denies abdominal pain, diarrhea, nausea or vomiting Genitourinary Genitourinary ED: Reports dysuria Musculoskeletal Musculoskeletal: Denies myalgias Integumentary Denies rash Neurologic Neurologic: Reports weakness; Denies headache(s) Hematologic/Lymphatic Hematologic/Lymphatic: Denies easy bleeding or easy bruising EXAM Physical Exam Const Vital Signs: 04/19/25 03:35 04/19/25 03:35 04/19/25 03:40 Temperature 98.4 F 98.4 F Temperature Source Oral Oral Pulse Rate 77 79 Respiratory Rate 21 H 20 H Respiratory Effort Normal Respiratory Pattern Normal Blood Pressure 163/97 H 163/97 H Blood Pressure Mean 119 119 Pulse Ox 98 98 Oxygen Delivery Method Room Air Room Air 04/19/25 04:40 04/19/25 05:00 04/19/25 06:00 Temperature 98.4 F 98.4 F Temperature Source Oral Oral Pulse Rate 70 69 70 Respiratory Rate 22 H 19 H 16 Respiratory Effort Respiratory Pattern Blood Pressure 139/60 H 151/76 H 133/111 H Blood Pressure Mean 86 101 118 Pulse Ox 98 97 98 Oxygen Delivery Method Room Air Room Air Room Air Positive well nourished and well developed General Appearance ED: well developed; Negative for pallor HEENT Reports dry mucous membranes HEENT Narrative: Normocephalic atraumatic No tongue or lip swelling no oral lesions no airway edema or compromise; no secondary findings in the posterior pharynx to suggest infection Mucous membranes are dry and tacky consistent with concern for dehydration Mouth ED: Yes dry mucous membranes Mouth: dry mucous membranes Eyes PERRL and EOMs intact bilaterally General Eye ED: Negative for scleral icterus Neck supple Neck Narrative: No nuchal rigidity or meningeal signs noted Resp normal respiratory effort and clear to auscultation bilaterally Resp Narrative: Breath sounds are slightly diminished throughout but overall clear to auscultation without signs of respiratory distress Cardio regular rate and regular rhythm Rate: other Other Details: Radial and carotid pulses are equal and symmetric GI normal to inspection, nondistended, normoactive bowel sounds, non-tender, non-distended and no masses GI Narrative: Abdomen is soft nontender and nondistended with normal active bowel sounds No voluntary guarding or rigidity or pulsatile mass Auscultation: normoactive bowel sounds Palpation: soft Extremity normal to inspection Extremity Narrative: No asymmetric edema no pitting edema negative Homans' sign bilaterally No bony deformity or joint effusion noted No signs of long bone injury Neuro oriented x3 and CN's II-XII intact bilaterally Neuro Narrative: Patient is awake and alert and oriented person place and time at her baseline mental status per There is diffuse/generalized weakness without focal deficit NIH stroke scale score of 0 Sensorium / Orientation: alert Motor Exam: general weakness Psych Psych Narrative: Patient has a flat affect Skin no rashes or lesions noted and No skin turgor normal Skin Narrative: Skin turgor is increased consistent with report of poor oral intake and physicalexam concerning for dehydration However no secondary skin changes to suggest trauma or infection General Skin Exam: Negative for jaundice or pallor MDM MDM MDM Narrative Medical decision making narrative: Patient presented to the ER slightly hypertensive but has a past medical historyof this and otherwise with stable vitals. She reported increasing generalized weakness to the point where she was having difficulty supporting her own body weight and ambulating. Her physical exam shows changes consistent with dehydration. With concern that her weakness is from acute kidney injury electrolyte abnormality thyroid dysfunction UTI or potential acute on chronic blood loss anemia basic laboratory studies were obtained. As her weakness is diffuse and not focal this does not correlate with an acute CVA so I felt no need for a stroke alert or CT of the head. Blood work revealed no clinically significant findings and urine sample revealed no sign of infection. Patient received 1 L of IV fluid and after this did report feeling slightly better and therefore we attempted to ambulate the patient with a walker as she uses at home. The patient was able to ambulate but cannot get out of bed on her own. And once up gait was slightly unsteady requiring 1 hand stabilization by nursingstaff and patient also had to stop multiple times secondary to fatigue and feeling unsteady. At this time the patient does not have grounds for admission based on infection such as UTI/urosepsis or acute kidney injury acute blood lossanemia or electrolyte abnormality. There is also no need for admission secondary to acute CVA as her symptoms are nonfocal and generalized and do not correlate with stroke. The patient states that despite the workup in the ER andIV fluids she still feels too weak to go home and is agreeable to chcf/rehab placement. As it is a weekday and morning hours the patient will be evaluated by physical therapy/Occupational Therapy in the ER and social work will be consulted as well. There is hopes that the patient will be able to be sent directly from the ER to a chcf/rehab center. The patient and family were informed of the plan of care and they are agreeable to it. They also understand that if placement cannot be obtained today that because of her persistent weakness she would then require general admission to the hospital. History & Record Review Discussion w/independent historian: Patient and Significant other Lab Data Attestation: I reviewed the patient's lab results. Labs: Laboratory Results - last 24 hr 04/19/25 04/19/25 03:45 04:13 WBC 8.7 RBC 3.32 L Hgb 10.4 L Hct 30.8 L MCV 92.8 MCH 31.3 MCHC 33.8 RDW Std Deviation 44.9 H RDW Coeff of Edita 13.3 Plt Count 189 MPV 10.8 Immature Gran % (Auto) 0.300 Neut % (Auto) 78.3 H Lymph % (Auto) 10.4 L [place] % (Auto) 8.2 Eos % (Auto) 2.5 Baso % (Auto) 0.3 Absolute Neuts (auto) 6.8 Absolute Lymphs (auto) 0.90 Nucleated RBC % 0 Sodium 135 Potassium 4.4 Chloride 99 Carbon Dioxide 25.9 Anion Gap 10 BUN 20 H Creatinine 1.02 Estim Creat Clear Calc 50.29 Est GFR (MDRD) Non-Af 58 L BUN/Creatinine Ratio 19.3 Glucose 229 H Calcium 9.0 Magnesium 1.6 TSH 4.050 Urine Color Yellow Urine Clarity Clear Urine pH 6.5 Ur Specific [place] 1.010 Urine Protein 15 H Urine Glucose (UA) 100 H Urine Ketones Negative Urine Occult Blood Negative Urine Nitrite Negative Urine Bilirubin Negative Urine Urobilinogen Normal Ur Leukocyte Esterase Negative Urine RBC 0 SEEN Urine WBC 0 SEEN Ur Squamous Epith Cells 0 SEEN Urine Bacteria 0 SEEN Urine Mucus 0 SEEN Management Discussion w/another healthcare provider: 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 management Discharge Plan Triage Chief Complaint: Weakness ED Provider: Romeo Padron Dx/Rx/DC Orders Clinical Impression: Generalized weakness, Ischemic colitis, Dehydration, Chronic anemia, HTN (hypertension) Prescriptions: No Action furosemide 20 mg tablet 20 mg PO QDAY PRN (Reason: for 2lb weight gain) acetaminophen 500 mg tablet 500 mg PO Q6H PRN PRN (Reason: Pain Score 1-10) docusate sodium 100 mg capsule 100 mg PO DAILY PRN (Reason: constipation) pantoprazole 40 mg tablet,delayed release (DR/EC) 40 mg PO DAILY metformin 500 mg tablet 500 mg PO QDAY metoprolol succinate [Toprol XL] 25 mg tablet extended release 24 hr 25 mg PO QDAY Blink Gel Tears 0.25 % drops,gel ophthalmic (eye) lamotrigine 100 mg tablet 100 mg PO QDAY escitalopram oxalate 5 mg tablet 5 mg PO QDAY polyethylene glycol 3350 [Miralax] 17 gram/dose powder 17 g PO BID Linzess 72 mcg capsule 72 mcg PO QAM Qty: 90 1RF ferrous sulfate [Feosol] 325 mg (65 mg iron) tablet 325 mg PO QDAY Linzess 145 mcg capsule 145 mcg PO QAM Qty: 60 2RF trazodone 50 MG tablet 50 mg PO DAILY clonazepam 1 MG tablet 1 mg PO QHS cholecalciferol (vitamin D3) 25 mcg (1,000 unit) Tablet 50 mcg PO QHS Qty: 0 0RF aspirin 81 mg tablet,delayed release (DR/EC) 81 mg PO .COMPLEX Rx Instructions: 81 mg orally EVERY OTHER DAY; rosuvastatin 20 mg tablet 20 mg PO QHS baclofen 5 mg tablet 5 mg PO QDAY Patient Comments: PLEASE SEE ATTACHED FOR DETAILED DIRECTIONS clopidogrel 75 mg Tablet 75 mg PO DAILY Qty: 0 0RF albuterol sulfate 90 mcg/actuation HFA aerosol inhaler 1 puff inhalation Q6H PRN (Reason: shortness of breath or wheezing) Qty: 8.5 0RF oxycodone-acetaminophen 5-325 mg tablet 1 tab PO Q6H PRN PRN (Reason: severe pain) hyoscyamine sulfate 0.125 mg tablet 0.125 mg PO TID PRN (Reason: dyspepsia) Qty: 90 2RF Primary Care Provider: Marci Lopez Referrals: Marci Lopez DO [Primary Care Provider] - Print Language: Martiniquais What to do if you have Problems For any increased pain, shortness of breath, bleeding, nausea or vomiting, chestpain, or any unexpected problems, contact your Primary Care Provider. Call [facility] ([phone]) or report to the closest Emergency Room. Call 911 if necessary. 04/19/25 0633 <Electronically signed by Romeo Padron DO> Cosigner Signature (if applicable): CC: Marci Lopez DO ~ Signed [facility] Work Phone: Discharge summary Author Maximo [facility] Note Date/Time April 20, 2025 2:54p m [facility] Medical Records Department [address] [place] [address] Transfer to [facility] MR#: [id number] Acct: [id number] Name: MANSI CARO Rep #:[id number] : 1955 70 From: Maximo levin DO PCP: Marci Lopez DO Status:ADM I NO Certification of patient admission REQUIRED AT TIME OF ADMISSION. I CERTIFY THAT POST-HOSPITAL ECF SERVICES ARE REQUIRED TO BE GIVEN ON AN IN-PATIENT BASIS BECAUSE OF THE ABOVE NAMED PATIENT'S NEED FOR [facility] CARE ON A CONTINUING BASIS FOR THE CONDITION(S) FOR WHICH HE/SHE WAS RECEIVING IN-PATIENT HOSPITAL SERVICES PRIOR TO HIS/HER TRANSFER TO THE [facility]. 04/20/25 1454<Electronically signed by Maximo Orosco DO> Diet Diet Order/Speech Therapy: INPATIENT Hospital Diet / Speech Therapy Order(s) 04/19/25 13:08 Diet: Regular - General Food consistency:: Regular Liquid Consistency:: Regular/Thin Routine Orders/Code Status Code Status: Full Code DC O2, CPAP, BIPAP needs Home O2 Discharge instructions: No Therapies Weight Bearing: Full weight bearing Physical Therapy: Eval and Treat Occupational Therapy: Eval and Treat Problem/Diagnosis (1) Generalized weakness: Status: Acute Code(s): R53.1 - Weakness Plan Patient is a 70-year-old female who presented to [facility] ED on 04/19/2025 with worsening weakness. Short hospital course as noted below. Patient discharged to TCU in stable condition on 04/20. 1. Acute on chronic debility ? PT/OT/case management followed. Patient with chronic debility at baseline, requires walker for ambulation. Has had worsening generalized weakness over thepast several weeks. No abnormalities on admit. No focal weakness noted. Suspect primarily worsening weakness in setting of deconditioning. Had borderline therapy scores while here. Stable for discharge to TCU on 04/20. Chronic medical conditions: ? Type 2 diabetes mellitus: Treated with sliding scale insulin with meals while inpatient. Okay to resume home metformin on discharge. ? History of CAD with stenting, history of heart failure s/p ICD placement with recovered ejection fraction, history of heart block s/p pacemaker placement, history of CVA, hypertension, hyperlipidemia: Hypertensive to the 150s to 160s on admit but otherwise stable. Last echo in 09/14 showed EF 55%. Continue homeaspirin, Plavix, statin, and Toprol. ? Mild chronic iron deficiency anemia: Hemoglobin stable at baseline around 10 on admit. Continue home iron supplement. ? Anxiety/depression: Stable. Continue home escitalopram, lamotrigine and diazepam at night as needed. ? Muscle spasms: Continue home baclofen. ? GERD: Continue home PPI. ? Chronic constipation, history of ischemic colitis: Follows with outpatient GI. On Linzess and MiraLAX at home. Unfortunately not able to take Linzess while here. Treated with scheduled MiraLAX and senna while inpatient. Okay to resumehome regimen on discharge. Total clinical time spent by myself addressing the patient's medical issues, reviewing all the data, and collaborating with patient's care team: 35 minutes. Allergies/Procedures Done in Hospital Allergies No Known Allergies Allergy (Verified 04/19/25 03:35) Procedures: None Type of Care/Length of Stay Estimated LOS: Convalescent Care Less Than 30 days Type of Care Needed: Skilled Rehab Potential: Fair Prognosis: Fair Additional Orders/Day of Discharge H&P will serve as current which was dated: 04/19/25 Day of Discharge: 04/20/25 Discharge Plan Admission Admit Date/Time: 04/19/25 11:26 Primary Reason for Your Visit: weakness Attending Provider: Maximo Orosco Primary Care Provider: Marci Lopez Discharge Orders/Prescriptions Prescriptions: Continued furosemide 20 mg tablet 20 mg PO QDAY PRN (Reason: for 2lb weight gain) acetaminophen 500 mg tablet 500 mg PO Q6H PRN PRN (Reason: Pain Score 1-10) docusate sodium 100 mg capsule 100 mg PO DAILY PRN (Reason: constipation) pantoprazole 40 mg tablet,delayed release (DR/EC) 40 mg PO DAILY metformin 500 mg tablet 500 mg PO QDAY metoprolol succinate [Toprol XL] 25 mg tablet extended release 24 hr 25 mg PO QDAY Blink Gel Tears 0.25 % drops,gel ophthalmic (eye) lamotrigine 100 mg tablet 100 mg PO QDAY escitalopram oxalate 5 mg tablet 5 mg PO QDAY polyethylene glycol 3350 [Miralax] 17 gram/dose powder 17 g PO DAILY ferrous sulfate [Feosol] 325 mg (65 mg iron) tablet 325 mg PO QDAY Linzess 145 mcg capsule 145 mcg PO QAM Qty: 60 2RF trazodone 50 MG tablet 50 mg PO DAILY clonazepam 1 MG tablet 1 mg PO QHS cholecalciferol (vitamin D3) 25 mcg (1,000 unit) Tablet 50 mcg PO QHS Qty: 0 0RF aspirin 81 mg tablet,delayed release (DR/EC) 81 mg PO .COMPLEX Rx Instructions: 81 mg orally EVERY OTHER DAY; rosuvastatin 20 mg tablet 20 mg PO QHS baclofen 5 mg tablet 5 mg PO QDAY Patient Comments: PLEASE SEE ATTACHED FOR DETAILED DIRECTIONS albuterol sulfate 90 mcg/actuation HFA aerosol inhaler 1 puff inhalation Q6H PRN (Reason: shortness of breath or wheezing) Qty: 8.5 0RF oxycodone-acetaminophen 5-325 mg tablet 1 tab PO Q6H PRN PRN (Reason: severe pain) Austedo XR 6 mg tablet extended release 24 hr 6 mg PO DAILY phenazopyridine 100 mg tablet 100 mg PO TID PRN PRN (Reason: bladder pain) clopidogrel 75 mg Tablet 75 mg PO .COMPLEX Rx Instructions: 75 mg orally Wednesday, Wednesday, Wednesday; hyoscyamine sulfate 0.125 mg tablet 0.125 mg PO TID PRN (Reason: dyspepsia) Qty: 90 2RF Referrals / Follow Up: Marci Lopez DO [Primary Care Provider] - Disposition Disposition (needs filled in before D/C Order can be placed): [facility] Facility 04/20/25 5924 <Electronically signed by Maximo Orosco DO> Cosigner Signature (if applicable): CC: Marci Lopez DO ~ [facility] Work Phone: Discharge summary Author Maximo [facility] Note Date/Time April 20, 2025 2:55p [facility] Medical Records Department [address] [place] [address] Discharge Summary 04/20/25 1449 MR#: [id number] Acct: [id number] Name: MANSI CARO Rep #:[id number] : [id number] 70 From: Maximo levin DO PCP: Marci Lopez DO Status:ADM I NO Location[place] [facility] [place] [id number] Providers Date of Admission: 04/19/25 Date of Discharge: 04/20/25 Primary Care Physician: Dr. Marci Lopez DO Reason For Visit: ACUTE ON CHRONIC DEBILITY Diagnosis Discharge Diagnosis (1) Generalized weakness: Status: Acute Code(s): R53.1 - Weakness Medications at Discharge Home Medications clonazepam 1 mg tablet 1 mg PO QHS anxiety 11/18/14 trazodone 50 mg tablet 50 mg PO DAILY Anxiety 11/18/14 cholecalciferol (vitamin D3) 25 mcg (1,000 unit) tablet 50 mcg (2 x 25 mcg (1,000 unit)) PO QHS supplement #0 tabs 09/30/23 aspirin 81 mg tablet,delayed release 81 mg PO .COMPLEX heart 10/01/23 rosuvastatin 20 mg tablet 20 mg PO QHS cholesterol 02/21/24 acetaminophen 500 mg tablet 500 mg PO Q6H PRN PRN Pain Score 1-10 06/13/24 docusate sodium 100 mg capsule 100 mg PO DAILY PRN constipation 06/13/24 furosemide 20 mg tablet 20 mg PO QDAY PRN for 2lb weight gain 06/13/24 pantoprazole 40 mg tablet,delayed release 40 mg PO DAILY 07/17/24 baclofen 5 mg tablet 5 mg PO QDAY muscle spasms 08/03/24 albuterol sulfate 90 mcg/actuation aerosol inhaler 1 puff inhalation Q6H PRN shortness of breath or wheezing #8.5 grams 09/09/24 escitalopram oxalate 5 mg tablet 5 mg PO QDAY 11/28/24 polyethylene glycol 3350 17 gram/dose oral powder (Miralax) 17 g PO DAILY 11/28/24 metformin 500 mg tablet 500 mg PO QDAY 01/18/25 metoprolol succinate 25 mg tablet,extended release 24 hr (Toprol XL) 25 mg PO QDAY 01/18/25 lamotrigine 100 mg tablet 100 mg PO QDAY 01/23/25 polyethylene glycol 400 0.25 % eye gel drops (Blink Gel Tears) drp ophthalmic (eye) 01/23/25 ferrous sulfate 325 mg (65 mg iron) tablet (Feosol) 325 mg PO QDAY 02/13/25 linaclotide 145 mcg capsule (Linzess) 145 mcg PO QAM #60 caps 02/14/25 hyoscyamine sulfate 0.125 mg tablet 0.125 mg PO TID PRN dyspepsia #90 tabs 03/05/25 clopidogrel 75 mg tablet 75 mg PO .COMPLEX 04/19/25 deutetrabenazine 6 mg tablet,extended release 24 hr (Austedo XR) 6 mg PO DAILY 04/19/25 oxycodone-acetaminophen 5 mg-325 mg tablet 1 tab PO Q6H PRN PRN severe pain 04/19/25 phenazopyridine 100 mg tablet 100 mg PO TID PRN PRN bladder pain 04/19/25 Hospital Course Operations None Procedures None Summary of Care Provided Minutes Spent on Discharge: 35 Hospital Course: Patient is a 70-year-old female who presented to [facility] ED on 04/19/2025 with worsening weakness. Short hospital course as noted below. Patient discharged to TCU in stable condition on 04/20. 1. Acute on chronic debility ? PT/OT/case management followed. Patient with chronic debility at baseline, requires walker for ambulation. Has had worsening generalized weakness over thepast several weeks. No abnormalities on admit. No focal weakness noted. Suspect primarily worsening weakness in setting of deconditioning. Had borderline therapy scores while here. Stable for discharge to TCU on 04/20. Chronic medical conditions: ? Type 2 diabetes mellitus: Treated with sliding scale insulin with meals while inpatient. Okay to resume home metformin on discharge. ? History of CAD with stenting, history of heart failure s/p ICD placement with recovered ejection fraction, history of heart block s/p pacemaker placement, history of CVA, hypertension, hyperlipidemia: Hypertensive to the 150s to 160s on admit but otherwise stable. Last echo in 09/14 showed EF 55%. Continue homeaspirin, Plavix, statin, and Toprol. ? Mild chronic iron deficiency anemia: Hemoglobin stable at baseline around 10 on admit. Continue home iron supplement. ? Anxiety/depression: Stable. Continue home escitalopram, lamotrigine and diazepam at night as needed. ? Muscle spasms: Continue home baclofen. ? GERD: Continue home PPI. ? Chronic constipation, history of ischemic colitis: Follows with outpatient GI. On Linzess and MiraLAX at home. Unfortunately not able to take Linzess while here. Treated with scheduled MiraLAX and senna while inpatient. Okay to resumehome regimen on discharge. Total clinical time spent by myself addressing the patient's medical issues, reviewing all the data, and collaborating with patient's care team: 35 minutes. Physical Exam Const alert, oriented x3, no apparent distress and average body habitus Constitutional Narrative: Elderly female, mildly fatigued and weak appearing, otherwise sitting back comfortably in bed, conversing normally, in no acute distress. General Appearance: cooperative and comfortable HEENT normocephalic, head/scalp atraumatic, hearing grossly normal bilaterally, nasal mucous membranes and turbinates normal and moist oral mucous membranes Eyes PERRL, EOMs intact bilaterally and conjunctivae normal Neck full ROM Chest inspection of chest normal Resp normal respiratory effort, normal air movement, no use of accessory muscles and clear to auscultation bilaterally Cardio regular rate, regular rhythm, no murmurs and peripheral pulses 2+ throughout GI normal to inspection, nondistended, normoactive bowel sounds, soft to palpation,non-tender and non-distended Back/Spine normal ROM Extremity normal to inspection and no pedal edema Skin no rashes or lesions noted Neuro oriented x3, moves all extremities and no focal motor deficits Neuro Narrative: Generalized weakness noted. Speech: speech normal Psych mental status grossly normal Weight / BMI Weight Weight: 62 kg Body Mass Index (BMI) 20.7 ABG / Lab / Microbiology Data 04/20/25 05:19 04/20/25 05:19 Laboratory: Laboratory Results - last 24 hr 04/19/25 16:14: POC Glucose 260 H 04/19/25 20:34: POC Glucose 242 H 04/20/25 05:19: WBC 6.0, RBC 3.07 L, Hgb 9.6 L, Hct 28.7 L, MCV 93.5, MCH 31.3, MCHC 33.4, RDW Std Deviation 46.6 H, RDW Coeff of Edita 13.7, Plt Count 175, MPV 10.7, Sodium 138, Potassium 3.9, Chloride 105, Carbon Dioxide 23.8, Anion Gap 10, BUN 12, Creatinine 0.88, Estim Creat Clear Calc 56.56, Est GFR (MDRD) Non-Af70, BUN/Creatinine Ratio 13.4, Glucose 188 H, Calcium 8.7 04/20/25 06:38: POC Glucose 197 H 04/20/25 11:31: POC Glucose 225 H D/C Instructions DC O2, CPAP, BIPAP Needs Home O2 Discharge instructions: No Meaningful Use Info Meaningful Use Meaningful Use Diagnoses (Choose all that apply): None applicable Ischemic Stroke Statin Dosing Therapy Reference: STATIN DOSE THERAPY REFERENCE: * Patients > 75 years receive moderate or high dose statin therapy. * Patients 75 years or YOUNGER should receive HIGH intensity statin dose unless contraindicated. You will be required to document reason for non-treatment if statin daily dose does not meet guidelines. HIGH DOSE STATIN THERAPY DAILY Atorvastatin > than or = to 40 mg Rosuvastatin > than or = to 20 mg Amlodipine + Atorvastatin > than or = to 2.5/40 mg Ezetimibe + Simvastatin 10/80 mg Simvastatin 80mg Discharge Plan Admission Admit Date/Time: 04/19/25 11:26 Primary Reason for Your Visit: weakness Attending Provider: Maximo Orosco Primary Care Provider: Marci Lopez Discharge Orders/Prescriptions Prescriptions: Continued furosemide 20 mg tablet 20 mg PO QDAY PRN (Reason: for 2lb weight gain) acetaminophen 500 mg tablet 500 mg PO Q6H PRN PRN (Reason: Pain Score 1-10) docusate sodium 100 mg capsule 100 mg PO DAILY PRN (Reason: constipation) pantoprazole 40 mg tablet,delayed release (DR/EC) 40 mg PO DAILY metformin 500 mg tablet 500 mg PO QDAY metoprolol succinate [Toprol XL] 25 mg tablet extended release 24 hr 25 mg PO QDAY Blink Gel Tears 0.25 % drops,gel ophthalmic (eye) lamotrigine 100 mg tablet 100 mg PO QDAY escitalopram oxalate 5 mg tablet 5 mg PO QDAY polyethylene glycol 3350 [Miralax] 17 gram/dose powder 17 g PO DAILY ferrous sulfate [Feosol] 325 mg (65 mg iron) tablet 325 mg PO QDAY Linzess 145 mcg capsule 145 mcg PO QAM Qty: 60 2RF trazodone 50 MG tablet 50 mg PO DAILY clonazepam 1 MG tablet 1 mg PO QHS cholecalciferol (vitamin D3) 25 mcg (1,000 unit) Tablet 50 mcg PO QHS Qty: 0 0RF aspirin 81 mg tablet,delayed release (DR/EC) 81 mg PO .COMPLEX Rx Instructions: 81 mg orally EVERY OTHER DAY; rosuvastatin 20 mg tablet 20 mg PO QHS baclofen 5 mg tablet 5 mg PO QDAY Patient Comments: PLEASE SEE ATTACHED FOR DETAILED DIRECTIONS albuterol sulfate 90 mcg/actuation HFA aerosol inhaler 1 puff inhalation Q6H PRN (Reason: shortness of breath or wheezing) Qty: 8.5 0RF oxycodone-acetaminophen 5-325 mg tablet 1 tab PO Q6H PRN PRN (Reason: severe pain) Austedo XR 6 mg tablet extended release 24 hr 6 mg PO DAILY phenazopyridine 100 mg tablet 100 mg PO TID PRN PRN (Reason: bladder pain) clopidogrel 75 mg Tablet 75 mg PO .COMPLEX Rx Instructions: 75 mg orally Wednesday, Wednesday, Wednesday; hyoscyamine sulfate 0.125 mg tablet 0.125 mg PO TID PRN (Reason: dyspepsia) Qty: 90 2RF Referrals / Follow Up: Marci Lopez DO [Primary Care Provider] - Disposition Disposition (needs filled in before D/C Order can be placed): [facility] Charges/Coding Visit Charges Inpatient E&M: 45208 Disch Hosp >30min 04/20/25 1455 <Electronically signed by Maximo Orosco DO> Cosigner Signature (if applicable): CC: Dr. Maximo Orosco DO; Marci Lopez DO~ Signed [facility] Work Phone: Evaluation + Plan note Future Appointments Appointment Date:10/08/2021 02:30:00 PM Scheduled Provider: Location:[facility] Appointment Type:MA Mammogram Screening Bilateral w/ Yoav Appointment Date:10/31/2021 02:00:00 PM Scheduled Provider:LARY WHEAT DO Location:[facility] Appointment Type:[facility] Future Scheduled Tests Radiology* MA Mammo Screening Bilateral w/ Yoav 10/08/21 [facility] Evaluation + Plan note Future Appointments Appointment Date:10/31/2021 02:00:00 PM Scheduled Provider:LARY WHEAT DO Location:[facility] Appointment Type: OV [facility] Evaluation + Plan note Future Appointments Appointment Date:02/12/2022 11:00:00 AM Scheduled Provider:LARY WHEAT DO Location:[facility] Appointment Type: OV [facility] Evaluation + Plan note Future Appointments Appointment Date:2022 11:00:00 AM Scheduled Provider: Location:[facility] Appointment Type: OV Appointment Date:02/12/2022 11:00:00 AM Scheduled Provider:LARY WHEAT DO Location:[facility] Appointment Type:[facility] Evaluation + Plan note Future Appointments Appointment Date:12/30/2021 10:15:00 AM Scheduled Provider:REI ALFONSO Location:[facility] Appointment Type:CV OV Appointment Date:2022 11:00:00 AM Scheduled Provider: Location:[facility] Appointment Type:CV OV Appointment Date:02/12/2022 11:00:00 AM Scheduled Provider:LARY WHEAT DO Location:[facility] Appointment Type:PC OV Future Scheduled Tests Laboratory* Complete Blood Count 12/09/21 * Complete Metabolic Panel 12/09/21 [facility] Evaluation + Plan note Future Appointments Appointment Date:2022 11:00:00 AM Scheduled Provider: Location:[facility] Appointment Type:CV OV Appointment Date:02/12/2022 11:00:00 AM Scheduled Provider:LARY WHEAT DO Location:[facility] Appointment Type:PC OV Appointment Date:02/17/2022 03:45:00 PM Scheduled Provider: Location:[facility] Appointment Type:CV OV Appointment Date:03/30/2022 02:00:00 PM Scheduled Provider: Location:[facility] Appointment Type:CV Procedure - Echo (Adult) Future Scheduled Tests Laboratory* Complete Blood Count 12/09/21 * Complete Metabolic Panel 12/09/21 [facility] Evaluation + Plan note Future Appointments Appointment Date:02/12/2022 11:00:00 AM Scheduled Provider:LARY WHEAT DO Location:[facility] Appointment Type:PC OV Appointment Date:02/17/2022 03:45:00 PM Scheduled Provider: Location:[facility] Appointment Type:CV OV Appointment Date:03/30/2022 02:00:00 PM Scheduled Provider: Location:[facility] Appointment Type:CV Procedure - Echo (Adult) [facility] Evaluation + Plan note Future Appointments Appointment Date:03/20/2022 08:45:00 AM Scheduled Provider: [facility] Appointment Type:CV OV Appointment Date:03/30/2022 02:00:00 PM Scheduled Provider: Location:[facility] Appointment Type:CV Procedure - Echo (Adult) Appointment Date:05/15/2022 08:00:00 AM Scheduled Provider:LARY WHEAT DO Location:[facility] Appointment Type:PC OV Future Scheduled Tests Laboratory* Basic Metabolic Panel 03/10/22 * A1C Hemoglobin 05/15/22 * Lipid Profile 03/10/22 * Vitamin D Level 05/15/22 * Complete Metabolic Panel 05/15/22 * N-Terminal proBNP 03/10/22 [facility] Evaluation + Plan note Future Appointments Appointment Date:03/09/2022 03:45:00 PM Scheduled Provider: Location:[facility] [place] Appointment Type:CV OV Appointment Date:03/20/2022 08:45:00 AM Scheduled Provider: Location:[facility] Appointment Type:CV OV Appointment Date:03/30/2022 02:00:00 PM Scheduled Provider: Location:[facility] Appointment Type:CV Procedure - Echo (Adult) Appointment Date:05/15/2022 08:00:00 AM Scheduled Provider:LARY WHEAT DO Location:[facility] Appointment Type:PC OV Future Scheduled Tests Laboratory* Basic Metabolic Panel 03/10/22 * A1C Hemoglobin 05/15/22 * Lipid Profile 03/10/22 * Vitamin D Level 05/15/22 * Complete Metabolic Panel 05/15/22 * N-Terminal proBNP 03/10/22 [facility] Evaluation + Plan note Future Appointments Appointment Date:03/09/2022 03:45:00 PM Scheduled Provider: Location:[facility] [place] Appointment Type:CV OV Appointment Date:03/20/2022 08:45:00 AM Scheduled Provider: Location:[facility] Appointment Type:CV OV Appointment Date:03/30/2022 02:00:00 PM Scheduled Provider: Location:[facility] Appointment Type:CV Procedure - Echo (Adult) Appointment Date:05/15/2022 08:00:00 AM Scheduled Provider:LARY WHEAT DO Location:[facility] Appointment Type:PC OV Future Scheduled Tests Laboratory* A1C Hemoglobin 05/15/22 * Vitamin D Level 05/15/22 * Complete Metabolic Panel 05/15/22 [facility] Evaluation + Plan note Future Appointments Appointment Date:03/20/2022 08:45:00 AM Scheduled Provider: Location:[facility] Appointment Type:CV OV Appointment Date:03/30/2022 02:00:00 PM Scheduled Provider: Location:[facility] Appointment Type:CV Procedure - Echo (Adult) Appointment Date:05/15/2022 08:00:00 AM Scheduled Provider:LARY WHEAT DO Location:[facility] Appointment Type:PC OV Future Scheduled Tests Laboratory* A1C Hemoglobin 05/15/22 * Vitamin D Level 05/15/22 * Complete Metabolic Panel 05/15/22 [facility] evaluation + Plan note Future Appointments Appointment Date:03/30/2022 02:00:00 PM Scheduled Provider: Location:[facility] Appointment Type:CV Procedure - Echo (Adult) Appointment Date:05/01/2022 08:45:00 AM Scheduled Provider: Location:[facility] Appointment Type:CV OV Appointment Date:05/15/2022 08:00:00 AM Scheduled Provider:LARY WHEAT DO Location:[facility] Appointment Type:PC OV Diagnostic Tests Pending * Ferritin 03/20/22 * Transferrin 03/20/22 Future Scheduled Tests Laboratory* A1C Hemoglobin 05/15/22 * Cortisol Drawn in AM 03/20/22 * Vitamin D Level 05/15/22 * Complete Metabolic Panel 05/15/22 * N-Terminal proBNP 04/10/22 Radiology* MRI Cardiac Morph W+W/O Cont Flow/Veloc 03/20/22 [facility] Evaluation + Plan note Future Appointments Appointment Date:03/30/2022 02:00:00 PM Scheduled Provider: Location:[facility] Appointment Type:CV Procedure - Echo (Adult) Appointment Date:04/21/2022 04:30:00 PM Scheduled Provider: Location:[facility] Appointment Type:MRI Cardiac Morph W+W/O Cont Flow/Veloc Appointment Date:05/01/2022 08:45:00 AM Scheduled Provider: Location:[facility] Appointment Type:CV OV Appointment Date:05/15/2022 08:00:00 AM Scheduled Provider:LARY WHEAT DO Location:[facility] Appointment Type:PC OV Future Scheduled Tests Laboratory* A1C Hemoglobin 05/15/22 * Vitamin D Level 05/15/22 * Complete Metabolic Panel 05/15/22 * N-Terminal proBNP 04/10/22 Radiology* MRI Cardiac Morph W+W/O Cont Flow/Veloc 04/21/22 [facility] Evaluation + Plan note Future Appointments Appointment Date:04/03/2022 03:00:00 PM Scheduled Provider: Location:[facility] Appointment Type:[facility] Infusion: Venofer (1 Hour) Appointment Date:04/21/2022 04:30:00 PM Scheduled Provider: Location:[facility] Appointment Type:MRI Cardiac Morph W+W/O Cont Flow/Veloc Appointment Date:05/01/2022 08:45:00 AM Scheduled Provider: Location:[facility] Appointment Type:CV OV Appointment Date:05/15/2022 08:00:00 AM Scheduled Provider:LARY WHEAT DO Location:[facility] Appointment Type:PC OV Future Scheduled Tests Laboratory* A1C Hemoglobin 05/15/22 * Vitamin D Level 05/15/22 * Complete Metabolic Panel 05/15/22 * N-Terminal proBNP 04/10/22 Radiology* MRI Cardiac Morph W+W/O Cont Flow/Veloc 04/21/22 [facility] Evaluation + Plan note Future Appointments Appointment Date:04/21/2022 04:30:00 PM Scheduled Provider: Location:[facility] Appointment Type:MRI Cardiac Morph W+W/O Cont Flow/Veloc Appointment Date:05/01/2022 08:45:00 AM Scheduled Provider: Location:[facility] Appointment Type:CV OV Appointment Date:05/15/2022 08:00:00 AM Scheduled Provider:LARY WHEAT DO Location:[facility] Appointment Type:PC OV Future Scheduled Tests Laboratory* A1C Hemoglobin 05/15/22 * Vitamin D Level 05/15/22 * Complete Metabolic Panel 05/15/22 * N-Terminal proBNP 04/10/22 Radiology* MRI Cardiac Morph W+W/O Cont Flow/Veloc 04/21/22 [facility] Evaluation + Plan note Future Appointments Appointment Date:05/01/2022 08:45:00 AM Scheduled Provider: Location:[facility] Appointment Type:CV OV Appointment Date:05/15/2022 08:00:00 AM Scheduled Provider:LARY WHEAT DO Location:[facility] Appointment Type:PC OV Future Scheduled Tests Laboratory* A1C Hemoglobin 05/15/22 * Vitamin D Level 05/15/22 * Complete Metabolic Panel 05/15/22 [facility] Evaluation + Plan note Future Appointments Appointment Date:05/08/2022 12:45:00 PM Scheduled Provider: Location:[facility] Appointment Type:CV F[facility]S [facility]AIR Appointment Date:05/15/2022 08:00:00 AM Scheduled Provider:LARY WHEAT DO Location:[facility] Appointment Type:PC OV Appointment Date:06/09/2022 11:30:00 AM Scheduled Provider: Location:[facility] Appointment Type:CV OV Appointment Date:06/17/2022 02:30:00 PM Scheduled Provider: Location:[facility] Appointment Type:CV F[facility]S CHAIR Future Scheduled Tests Laboratory* A1C Hemoglobin 05/15/22 * Vitamin D Level 05/15/22 * Complete Metabolic Panel 05/15/22 * N-Terminal proBNP 08/01/22 [facility] Evaluation + Plan note Future Appointments Appointment Date:05/29/2022 03:00:00 PM Scheduled Provider: Location:[facility] Appointment Type:CV OV Incision Check Appointment Date:06/09/2022 11:30:00 AM Scheduled Provider: Location:[facility] Appointment Type:CV OV Appointment Date:06/09/2022 01:30:00 PM Scheduled Provider:LARY WHEAT DO Location:[facility] Appointment Type:PC OV Appointment Date:06/17/2022 02:30:00 PM Scheduled Provider: Location:[facility] Appointment Type:CV FINE ARTS CHAIR Appointment Date:09/01/2022 03:30:00 PM Scheduled Provider: Location:[facility] Appointment Type:CV Office Procedure ICD Appointment Date:12/01/2022 08:00:00 AM Scheduled Provider: Location:[facility] Appointment Type:CV Remote Procedure HM Diagnostic Tests Pending * Urine Culture 05/22/22 Future Scheduled Tests Laboratory* A1C Hemoglobin 05/15/22 * Vitamin D Level 05/15/22 * Complete Metabolic Panel 05/15/22 * N-Terminal proBNP 08/01/22 [facility] Evaluation + Plan note Future Appointments Appointment Date:06/09/2022 11:30:00 AM Scheduled Provider: Location:[facility] Appointment Type:CV OV Appointment Date:06/09/2022 01:30:00 PM Scheduled Provider:LARY WHEAT DO Location:[facility] Appointment Type:PC OV Appointment Date:09/01/2022 03:30:00 PM Scheduled Provider: Location:[facility] Appointment Type:CV Office Procedure ICD Appointment Date:12/01/2022 08:00:00 AM Scheduled Provider: Location:[facility] Appointment Type:CV Remote Procedure HM Future Scheduled Tests Laboratory* Basic Metabolic Panel 06/01/22 * N-Terminal proBNP 06/01/22 * N-Terminal proBNP 08/01/22 [facility] Evaluation + Plan note Future Appointments Appointment Date:09/01/2022 03:30:00 PM Scheduled Provider: Location:[facility] Appointment Type:CV Office Procedure ICD Appointment Date:09/08/2022 02:00:00 PM Scheduled Provider:LARY WHEAT DO Location:[facility] Appointment Type:PC OV Appointment Date:12/01/2022 08:00:00 AM Scheduled Provider: Location:[facility] Appointment Type:CV Remote Procedure HM Future Scheduled Tests Laboratory* Lipid Profile 12/10/22 * N-Terminal proBNP 08/01/22 * N-Terminal proBNP 09/09/22 * N-Terminal proBNP 12/10/22 [facility] evaluation + Plan note Future Appointments Appointment Date:07/23/2022 03:00:00 PM Scheduled Provider:LARY WHEAT DO Location:[facility] Appointment Type:PC OV Appointment Date:09/01/2022 03:30:00 PM Scheduled Provider: Location:[facility] Appointment Type:CV Office Procedure ICD Appointment Date:09/08/2022 02:00:00 PM Scheduled Provider:LARY WHEAT DO Location:[facility] Appointment Type:PC OV Appointment Date:12/01/2022 08:00:00 AM Scheduled Provider: Location:[facility] Appointment Type:CV Remote Procedure HM Future Scheduled Tests Laboratory* Basic Metabolic Panel 06/10/22 * Basic Metabolic Panel 06/24/22 * Basic Metabolic Panel 07/08/22 * Basic Metabolic Panel 07/22/22 * Basic Metabolic Panel 08/05/22 * Basic Metabolic Panel 08/19/22 * Basic Metabolic Panel 09/02/22 * Basic Metabolic Panel 09/16/22 * Basic Metabolic Panel 09/30/22 * Basic Metabolic Panel 10/14/22 * Basic Metabolic Panel 10/28/22 * Basic Metabolic Panel 11/11/22 * Basic Metabolic Panel 11/25/22 * Basic Metabolic Panel 12/09/22 * Lipid Profile 12/10/22 * N-Terminal proBNP 06/10/22 * N-Terminal proBNP 06/24/22 * N-Terminal proBNP 07/08/22 * N-Terminal proBNP 07/22/22 * N-Terminal proBNP 08/05/22 * N-Terminal proBNP 08/19/22 * N-Terminal proBNP 09/02/22 * N-Terminal proBNP 09/16/22 * N-Terminal proBNP 09/30/22 * N-Terminal proBNP 10/14/22 * N-Terminal proBNP 10/28/22 * N-Terminal proBNP 11/11/22 * N-Terminal proBNP 11/25/22 * N-Terminal proBNP 12/09/22 * N-Terminal proBNP 08/01/22 * N-Terminal proBNP 09/09/22 * N-Terminal proBNP 12/10/22 [facility] Evaluation + Plan note Future Appointments Appointment Date:07/23/2022 03:00:00 PM Scheduled Provider:LARY WHEAT DO Location:[facility] Appointment Type:PC OV Appointment Date:09/01/2022 03:30:00 PM Scheduled Provider: Location:[facility] Appointment Type:CV Office Procedure ICD Appointment Date:09/08/2022 02:00:00 PM Scheduled Provider:LARY WHEAT DO Location:[facility] Appointment Type:PC OV Appointment Date:12/01/2022 08:00:00 AM Scheduled Provider: Location:[facility] Appointment Type:CV Remote Procedure HM Future Scheduled Tests Laboratory* Basic Metabolic Panel 06/10/22 * Basic Metabolic Panel 06/24/22 * Basic Metabolic Panel 07/08/22 * Basic Metabolic Panel 07/22/22 * Basic Metabolic Panel 08/05/22 * Basic Metabolic Panel 08/19/22 * Basic Metabolic Panel 09/02/22 * Basic Metabolic Panel 09/16/22 * Basic Metabolic Panel 09/30/22 * Basic Metabolic Panel 10/14/22 * Basic Metabolic Panel 10/28/22 * Basic Metabolic Panel 11/11/22 * Basic Metabolic Panel 11/25/22 * Basic Metabolic Panel 12/09/22 * Lipid Profile 12/10/22 * N-Terminal proBNP 06/10/22 * N-Terminal proBNP 06/24/22 * N-Terminal proBNP 07/08/22 * N-Terminal proBNP 07/22/22 * N-Terminal proBNP 08/05/22 * N-Terminal proBNP 08/19/22 * N-Terminal proBNP 09/02/22 * N-Terminal proBNP 09/16/22 * N-Terminal proBNP 09/30/22 * N-Terminal proBNP 10/14/22 * N-Terminal proBNP 10/28/22 * N-Terminal proBNP 11/11/22 * N-Terminal proBNP 11/25/22 * N-Terminal proBNP 12/09/22 * N-Terminal proBNP 09/09/22 * N-Terminal proBNP 12/10/22 [facility] Evaluation + Plan note Future Appointments Appointment Date:09/01/2022 03:30:00 PM Scheduled Provider: Location:[facility] Appointment Type:CV Office Procedure ICD Appointment Date:09/08/2022 02:00:00 PM Scheduled Provider:LARY WHEAT DO Location:[facility] Appointment Type:PC OV Appointment Date:12/01/2022 08:00:00 AM Scheduled Provider: Location:[facility] Appointment Type:CV Remote Procedure HM Future Scheduled Tests Laboratory* Basic Metabolic Panel 06/10/22 * Basic Metabolic Panel 06/24/22 * Basic Metabolic Panel 07/08/22 * Basic Metabolic Panel 07/22/22 * Basic Metabolic Panel 08/05/22 * Basic Metabolic Panel 08/19/22 * Basic Metabolic Panel 09/02/22 * Basic Metabolic Panel 09/16/22 * Basic Metabolic Panel 09/30/22 * Basic Metabolic Panel 10/14/22 * Basic Metabolic Panel 10/28/22 * Basic Metabolic Panel 11/11/22 * Basic Metabolic Panel 11/25/22 * Basic Metabolic Panel 12/09/22 * Lipid Profile 12/10/22 * N-Terminal proBNP 06/10/22 * N-Terminal proBNP 06/24/22 * N-Terminal proBNP 07/08/22 * N-Terminal proBNP 07/22/22 * N-Terminal proBNP 08/05/22 * N-Terminal proBNP 08/19/22 * N-Terminal proBNP 09/02/22 * N-Terminal proBNP 09/16/22 * N-Terminal proBNP 09/30/22 * N-Terminal proBNP 10/14/22 * N-Terminal proBNP 10/28/22 * N-Terminal proBNP 11/11/22 * N-Terminal proBNP 11/25/22 * N-Terminal proBNP 12/09/22 * N-Terminal proBNP 09/09/22 * N-Terminal proBNP 12/10/22 [facility] Evaluation + Plan note Future Appointments Appointment Date:12/01/2022 08:00:00 AM Scheduled Provider: Location:[facility] Appointment Type:CV Remote Procedure Appointment Date:12/08/2022 02:45:00 PM Scheduled Provider:LARY WHEAT DO Location:[facility] Appointment Type:PC OV Future Scheduled Tests Laboratory* Basic Metabolic Panel 06/10/22 * Basic Metabolic Panel 06/24/22 * Basic Metabolic Panel 07/08/22 * Basic Metabolic Panel 07/22/22 * Basic Metabolic Panel 08/05/22 * Basic Metabolic Panel 08/19/22 * Basic Metabolic Panel 09/02/22 * Basic Metabolic Panel 09/16/22 * Basic Metabolic Panel 09/30/22 * Basic Metabolic Panel 10/14/22 * Basic Metabolic Panel 10/28/22 * Basic Metabolic Panel 11/11/22 * Basic Metabolic Panel 11/25/22 * Basic Metabolic Panel 12/09/22 * Lipid Profile 12/10/22 * N-Terminal proBNP 06/10/22 * N-Terminal proBNP 06/24/22 * N-Terminal proBNP 07/08/22 * N-Terminal proBNP 07/22/22 * N-Terminal proBNP 08/05/22 * N-Terminal proBNP 08/19/22 * N-Terminal proBNP 09/02/22 * N-Terminal proBNP 09/16/22 * N-Terminal proBNP 09/30/22 * N-Terminal proBNP 10/14/22 * N-Terminal proBNP 10/28/22 * N-Terminal proBNP 11/11/22 * N-Terminal proBNP 11/25/22 * N-Terminal proBNP 12/09/22 * N-Terminal proBNP 12/10/22 Radiology* CT Thorax w/o Contrast 09/08/22 [facility] Evaluation + Plan note Future Appointments Appointment Date:12/01/2022 08:00:00 AM Scheduled Provider: Location:[facility] Appointment Type:CV Remote Procedure HM Appointment Date:12/08/2022 02:45:00 PM Scheduled Provider:LARY WHEAT DO Location:[facility] Appointment Type:PC OV Future Scheduled Tests Laboratory* Basic Metabolic Panel 06/10/22 * Basic Metabolic Panel 06/24/22 * Basic Metabolic Panel 07/08/22 * Basic Metabolic Panel 07/22/22 * Basic Metabolic Panel 08/05/22 * Basic Metabolic Panel 08/19/22 * Basic Metabolic Panel 09/02/22 * Basic Metabolic Panel 09/16/22 * Basic Metabolic Panel 09/30/22 * Basic Metabolic Panel 10/14/22 * Basic Metabolic Panel 10/28/22 * Basic Metabolic Panel 11/11/22 * Basic Metabolic Panel 11/25/22 * Basic Metabolic Panel 12/09/22 * Lipid Profile 12/10/22 * N-Terminal proBNP 06/10/22 * N-Terminal proBNP 06/24/22 * N-Terminal proBNP 07/08/22 * N-Terminal proBNP 07/22/22 * N-Terminal proBNP 08/05/22 * N-Terminal proBNP 08/19/22 * N-Terminal proBNP 09/02/22 * N-Terminal proBNP 09/16/22 * N-Terminal proBNP 09/30/22 * N-Terminal proBNP 10/14/22 * N-Terminal proBNP 10/28/22 * N-Terminal proBNP 11/11/22 * N-Terminal proBNP 11/25/22 * N-Terminal proBNP 12/09/22 * N-Terminal proBNP 12/10/22 [facility] Evaluation + Plan note Future Appointments Appointment Date:12/01/2022 08:00:00 AM Scheduled Provider: Location:[facility] Appointment Type:CV Remote Procedure HM Appointment Date:12/08/2022 02:45:00 PM Scheduled Provider:LARY WHEAT DO Location:[facility] Appointment Type:PC OV Future Scheduled Tests Laboratory* Basic Metabolic Panel 06/10/22 * Basic Metabolic Panel 06/24/22 * Basic Metabolic Panel 07/08/22 * Basic Metabolic Panel 07/22/22 * Basic Metabolic Panel 08/05/22 * Basic Metabolic Panel 08/19/22 * Basic Metabolic Panel 09/02/22 * Basic Metabolic Panel 09/16/22 * Basic Metabolic Panel 09/30/22 * Basic Metabolic Panel 10/14/22 * Basic Metabolic Panel 10/28/22 * Basic Metabolic Panel 11/11/22 * Basic Metabolic Panel 11/25/22 * Basic Metabolic Panel 12/09/22 * Lipid Profile 12/10/22 * N-Terminal proBNP 06/10/22 * N-Terminal proBNP 06/24/22 * N-Terminal proBNP 07/08/22 * N-Terminal proBNP 07/22/22 * N-Terminal proBNP 08/05/22 * N-Terminal proBNP 08/19/22 * N-Terminal proBNP 09/02/22 * N-Terminal proBNP 09/16/22 * N-Terminal proBNP 09/30/22 * N-Terminal proBNP 10/14/22 * N-Terminal proBNP 10/28/22 * N-Terminal proBNP 11/11/22 * N-Terminal proBNP 11/25/22 * N-Terminal proBNP 12/09/22 * N-Terminal proBNP 01/28/23 * N-Terminal proBNP 12/10/22 [facility] Evaluation + Plan note Future Appointments Appointment Date:11/30/2022 03:30:00 PM Scheduled Provider:ADRIENNE BYERS DO Location:[facility] Appointment Type:PC OV Appointment Date:12/01/2022 08:00:00 AM Scheduled Provider: Location:[facility] Appointment Type:CV Remote Procedure HM Appointment Date:12/08/2022 02:45:00 PM Scheduled Provider:LARY WHEAT DO Location:[facility] Appointment Type:PC OV Diagnostic Tests Pending * PTH, Intact 11/27/22 Future Scheduled Tests Laboratory* Basic Metabolic Panel 06/10/22 * Basic Metabolic Panel 06/24/22 * Basic Metabolic Panel 07/08/22 * Basic Metabolic Panel 07/22/22 * Basic Metabolic Panel 08/05/22 * Basic Metabolic Panel 08/19/22 * Basic Metabolic Panel 09/02/22 * Basic Metabolic Panel 09/16/22 * Basic Metabolic Panel 09/30/22 * Basic Metabolic Panel 10/14/22 * Basic Metabolic Panel 10/28/22 * Basic Metabolic Panel 11/11/22 * Basic Metabolic Panel 11/25/22 * Basic Metabolic Panel 12/09/22 * Urinalysis 11/27/22 * Urine Culture 11/27/22 * Lipid Profile 12/10/22 * N-Terminal proBNP 06/10/22 * N-Terminal proBNP 06/24/22 * N-Terminal proBNP 07/08/22 * N-Terminal proBNP 07/22/22 * N-Terminal proBNP 08/05/22 * N-Terminal proBNP 08/19/22 * N-Terminal proBNP 09/02/22 * N-Terminal proBNP 09/16/22 * N-Terminal proBNP 09/30/22 * N-Terminal proBNP 10/14/22 * N-Terminal proBNP 10/28/22 * N-Terminal proBNP 11/11/22 * N-Terminal proBNP 11/25/22 * N-Terminal proBNP 12/09/22 * N-Terminal proBNP 01/28/23 * N-Terminal proBNP 12/10/22 [facility] Evaluation + Plan note Future Appointments Appointment Date:12/08/2022 03:00:00 PM Scheduled Provider:LARY WHEAT DO Location:[facility] Appointment Type:PC OV Appointment Date:03/12/2023 11:45:00 AM Scheduled Provider: Location:[facility] Appointment Type:CV Remote Procedure HM Future Scheduled Tests Laboratory* Basic Metabolic Panel 06/10/22 * Basic Metabolic Panel 06/24/22 * Basic Metabolic Panel 07/08/22 * Basic Metabolic Panel 07/22/22 * Basic Metabolic Panel 08/05/22 * Basic Metabolic Panel 08/19/22 * Basic Metabolic Panel 09/02/22 * Basic Metabolic Panel 09/16/22 * Basic Metabolic Panel 09/30/22 * Basic Metabolic Panel 10/14/22 * Basic Metabolic Panel 10/28/22 * Basic Metabolic Panel 11/11/22 * Basic Metabolic Panel 11/25/22 * Basic Metabolic Panel 12/09/22 * Lipid Profile 12/10/22 * N-Terminal proBNP 06/10/22 * N-Terminal proBNP 06/24/22 * N-Terminal proBNP 07/08/22 * N-Terminal proBNP 07/22/22 * N-Terminal proBNP 08/05/22 * N-Terminal proBNP 08/19/22 * N-Terminal proBNP 09/02/22 * N-Terminal proBNP 09/16/22 * N-Terminal proBNP 09/30/22 * N-Terminal proBNP 10/14/22 * N-Terminal proBNP 10/28/22 * N-Terminal proBNP 11/11/22 * N-Terminal proBNP 11/25/22 * N-Terminal proBNP 12/09/22 * N-Terminal proBNP 01/28/23 * N-Terminal proBNP 12/10/22 [facility] Evaluation + Plan note Future Appointments Appointment Date:03/12/2023 11:45:00 AM Scheduled Provider: Location:[facility] Appointment Type:CV Remote Procedure Appointment Date:03/23/2023 02:30:00 PM Scheduled Provider:LARY WHEAT DO Location:[facility] Appointment Type:PC OV Future Scheduled Tests Laboratory* Basic Metabolic Panel 06/10/22 * Basic Metabolic Panel 06/24/22 * Basic Metabolic Panel 07/08/22 * Basic Metabolic Panel 07/22/22 * Basic Metabolic Panel 08/05/22 * Basic Metabolic Panel 08/19/22 * Basic Metabolic Panel 09/02/22 * Basic Metabolic Panel 09/16/22 * Basic Metabolic Panel 09/30/22 * Basic Metabolic Panel 10/14/22 * Basic Metabolic Panel 10/28/22 * Basic Metabolic Panel 11/11/22 * Basic Metabolic Panel 11/25/22 * N-Terminal proBNP 06/10/22 * N-Terminal proBNP 06/24/22 * N-Terminal proBNP 07/08/22 * N-Terminal proBNP 07/22/22 * N-Terminal proBNP 08/05/22 * N-Terminal proBNP 08/19/22 * N-Terminal proBNP 09/02/22 * N-Terminal proBNP 09/16/22 * N-Terminal proBNP 09/30/22 * N-Terminal proBNP 10/14/22 * N-Terminal proBNP 10/28/22 * N-Terminal proBNP 11/11/22 * N-Terminal proBNP 11/25/22 * N-Terminal proBNP 12/09/22 * N-Terminal proBNP 01/28/23 [facility] Evaluation + Plan note Future Appointments Appointment Date:03/12/2023 11:45:00 AM Scheduled Provider: Location:[facility] Appointment Type:CV Remote Procedure HM Appointment Date:03/24/2023 02:30:00 PM Scheduled Provider:ADRIENNE BYERS DO Location:[facility] Appointment Type:PC OV Future Scheduled Tests Laboratory* Basic Metabolic Panel 06/10/22 * Basic Metabolic Panel 06/24/22 * Basic Metabolic Panel 07/08/22 * Basic Metabolic Panel 07/22/22 * Basic Metabolic Panel 08/05/22 * Basic Metabolic Panel 08/19/22 * Basic Metabolic Panel 09/02/22 * Basic Metabolic Panel 09/16/22 * Basic Metabolic Panel 09/30/22 * Basic Metabolic Panel 10/14/22 * Basic Metabolic Panel 10/28/22 * Basic Metabolic Panel 11/11/22 * Basic Metabolic Panel 11/25/22 * N-Terminal proBNP 06/10/22 * N-Terminal proBNP 06/24/22 * N-Terminal proBNP 07/08/22 * N-Terminal proBNP 07/22/22 * N-Terminal proBNP 08/05/22 * N-Terminal proBNP 08/19/22 * N-Terminal proBNP 09/02/22 * N-Terminal proBNP 09/16/22 * N-Terminal proBNP 09/30/22 * N-Terminal proBNP 10/14/22 * N-Terminal proBNP 10/28/22 * N-Terminal proBNP 11/11/22 * N-Terminal proBNP 11/25/22 * N-Terminal proBNP 12/09/22 * N-Terminal proBNP 01/28/23 [facility] Evaluation + Plan note Future Appointments Appointment Date:05/18/2023 10:00:00 AM Scheduled Provider: Location:[facility] Appointment Type:CV OV Appointment Date:06/29/2023 09:45:00 AM Scheduled Provider: Location:[facility] Appointment Type:CV Remote Procedure HM Appointment Date:07/29/2023 02:45:00 PM Scheduled Provider:ADRIENNE BYERS DO Location:[facility] Appointment Type:PC Wellness Annual Future Scheduled Tests Laboratory* Basic Metabolic Panel 06/10/22 * Basic Metabolic Panel 06/24/22 * Basic Metabolic Panel 07/08/22 * Basic Metabolic Panel 07/22/22 * Basic Metabolic Panel 08/05/22 * Basic Metabolic Panel 08/19/22 * Basic Metabolic Panel 09/02/22 * Basic Metabolic Panel 09/16/22 * Basic Metabolic Panel 09/30/22 * Basic Metabolic Panel 10/14/22 * Basic Metabolic Panel 10/28/22 * Basic Metabolic Panel 11/11/22 * Basic Metabolic Panel 11/25/22 * Antinuclear Antibody Screen, Serum 04/29/23 * C-Reactive Protein 04/29/23 * Folate Level 04/29/23 * Urinalysis 04/29/23 * Thyroid Stimulating Hormone 04/29/23 * Free T4 04/29/23 * Vitamin B12 Level 04/29/23 * Rheumatoid Factor 04/29/23 * Complete Blood Count 04/29/23 * CPK 04/29/23 * Cytoplasmic Neutro. Antibody 04/29/23 * Lipid Profile 04/29/23 * Albumin/Creatinine Ratio, Random Urine 04/29/23 * PTH, Intact 04/29/23 * Sedimentation Rate Automated 04/29/23 * Vitamin D Level 04/29/23 * Complete Metabolic Panel 04/29/23 * N-Terminal proBNP 06/10/22 * N-Terminal proBNP 06/24/22 * N-Terminal proBNP 07/08/22 * N-Terminal proBNP 07/22/22 * N-Terminal proBNP 08/05/22 * N-Terminal proBNP 08/19/22 * N-Terminal proBNP 09/02/22 * N-Terminal proBNP 09/16/22 * N-Terminal proBNP 09/30/22 * N-Terminal proBNP 10/14/22 * N-Terminal proBNP 10/28/22 * N-Terminal proBNP 11/11/22 * N-Terminal proBNP 11/25/22 * N-Terminal proBNP 12/09/22 * N-Terminal proBNP 01/28/23 [facility] Evaluation + Plan note Future Appointments Appointment Date:06/29/2023 09:45:00 AM Scheduled Provider: Location:[facility] Appointment Type:CV Remote Procedure HM Appointment Date:07/29/2023 02:45:00 PM Scheduled Provider:ADRIENNE BYERS DO Location:[facility] Appointment Type:PC Wellness Annual Future Scheduled Tests Laboratory* Basic Metabolic Panel 06/10/22 * Basic Metabolic Panel 06/24/22 * Basic Metabolic Panel 07/08/22 * Basic Metabolic Panel 07/22/22 * Basic Metabolic Panel 08/05/22 * Basic Metabolic Panel 08/19/22 * Basic Metabolic Panel 09/02/22 * Basic Metabolic Panel 09/16/22 * Basic Metabolic Panel 09/30/22 * Basic Metabolic Panel 10/14/22 * Basic Metabolic Panel 10/28/22 * Basic Metabolic Panel 11/11/22 * Basic Metabolic Panel 11/25/22 * Antinuclear Antibody Screen, Serum 04/29/23 * C-Reactive Protein 04/29/23 * Folate Level 04/29/23 * Urinalysis 04/29/23 * Thyroid Stimulating Hormone 04/29/23 * Free T4 04/29/23 * Vitamin B12 Level 04/29/23 * Rheumatoid Factor 04/29/23 * Complete Blood Count 04/29/23 * CPK 04/29/23 * Cytoplasmic Neutro. Antibody 04/29/23 * Lipid Profile 04/29/23 * Lipid Profile 11/17/23 * Albumin/Creatinine Ratio, Random Urine 04/29/23 * PTH, Intact 04/29/23 * Sedimentation Rate Automated 04/29/23 * Vitamin D Level 04/29/23 * Complete Metabolic Panel 04/29/23 * N-Terminal proBNP 06/10/22 * N-Terminal proBNP 06/24/22 * N-Terminal proBNP 07/08/22 * N-Terminal proBNP 07/22/22 * N-Terminal proBNP 08/05/22 * N-Terminal proBNP 08/19/22 * N-Terminal proBNP 09/02/22 * N-Terminal proBNP 09/16/22 * N-Terminal proBNP 09/30/22 * N-Terminal proBNP 10/14/22 * N-Terminal proBNP 10/28/22 * N-Terminal proBNP 11/11/22 * N-Terminal proBNP 11/25/22 * N-Terminal proBNP 12/09/22 * N-Terminal proBNP 11/17/23 * N-Terminal proBNP 01/28/23 Radiology* CT Thorax w/o Contrast 11/24/23 [facility] Evaluation + Plan note Future Appointments Appointment Date:10/04/2023 03:30:00 PM Scheduled Provider: Location:[facility] Appointment Type:CV Office Procedure ICD Appointment Date:01/04/2024 08:00:00 AM Scheduled Provider: Location:[facility] Appointment Type:CV Remote Procedure HM Future Scheduled Tests Laboratory* Basic Metabolic Panel 08/05/22 * Basic Metabolic Panel 08/19/22 * Basic Metabolic Panel 09/02/22 * Basic Metabolic Panel 09/16/22 * Basic Metabolic Panel 09/30/22 * Basic Metabolic Panel 10/14/22 * Basic Metabolic Panel 10/28/22 * Basic Metabolic Panel 11/11/22 * Basic Metabolic Panel 11/25/22 * Basic Metabolic Panel 06/11/23 * Urinalysis 04/29/23 * Lipid Profile 11/17/23 * Albumin/Creatinine Ratio, Random Urine 04/29/23 * N-Terminal proBNP 08/05/22 * N-Terminal proBNP 08/19/22 * N-Terminal proBNP 09/02/22 * N-Terminal proBNP 09/16/22 * N-Terminal proBNP 09/30/22 * N-Terminal proBNP 10/14/22 * N-Terminal proBNP 10/28/22 * N-Terminal proBNP 11/11/22 * N-Terminal proBNP 11/25/22 * N-Terminal proBNP 12/09/22 * N-Terminal proBNP 11/17/23 * N-Terminal proBNP 01/28/23 Radiology* CT Thorax w/o Contrast 11/24/23 [facility] Evaluation + Plan note Future Appointments Appointment Date:08/16/2023 03:30:00 PM Scheduled Provider: Location:[facility] Appointment Type:DB Diabetic Individual Visit (AOH) Appointment Date:10/04/2023 03:30:00 PM Scheduled Provider: Location:[facility] Appointment Type:CV Office Procedure ICD Appointment Date:01/04/2024 08:00:00 AM Scheduled Provider: Location:[facility] Appointment Type:CV Remote Procedure Future Scheduled Tests Laboratory* Basic Metabolic Panel 08/19/22 * Basic Metabolic Panel 09/02/22 * Basic Metabolic Panel 09/16/22 * Basic Metabolic Panel 09/30/22 * Basic Metabolic Panel 10/14/22 * Basic Metabolic Panel 10/28/22 * Basic Metabolic Panel 11/11/22 * Basic Metabolic Panel 11/25/22 * Basic Metabolic Panel 06/11/23 * Urinalysis 04/29/23 * Lipid Profile 11/17/23 * Albumin/Creatinine Ratio, Random Urine 04/29/23 * N-Terminal proBNP 08/19/22 * N-Terminal proBNP 09/02/22 * N-Terminal proBNP 09/16/22 * N-Terminal proBNP 09/30/22 * N-Terminal proBNP 10/14/22 * N-Terminal proBNP 10/28/22 * N-Terminal proBNP 11/11/22 * N-Terminal proBNP 11/25/22 * N-Terminal proBNP 12/09/22 * N-Terminal proBNP 11/17/23 * N-Terminal proBNP 01/28/23 Radiology* CT Thorax w/o Contrast 11/24/23 [facility] Evaluation + Plan note Future Appointments Appointment Date:10/04/2023 03:30:00 PM Scheduled Provider: Location:[facility] Appointment Type:CV Office Procedure ICD Appointment Date:01/04/2024 08:00:00 AM Scheduled Provider: Location:[facility] Appointment Type:CV Remote Procedure HM Future Scheduled Tests Laboratory* Basic Metabolic Panel 08/19/22 * Basic Metabolic Panel 09/02/22 * Basic Metabolic Panel 09/16/22 * Basic Metabolic Panel 09/30/22 * Basic Metabolic Panel 10/14/22 * Basic Metabolic Panel 10/28/22 * Basic Metabolic Panel 11/11/22 * Basic Metabolic Panel 11/25/22 * Basic Metabolic Panel 06/11/23 * Urinalysis 04/29/23 * Lipid Profile 11/17/23 * Albumin/Creatinine Ratio, Random Urine 04/29/23 * N-Terminal proBNP 08/19/22 * N-Terminal proBNP 09/02/22 * N-Terminal proBNP 09/16/22 * N-Terminal proBNP 09/30/22 * N-Terminal proBNP 10/14/22 * N-Terminal proBNP 10/28/22 * N-Terminal proBNP 11/11/22 * N-Terminal proBNP 11/25/22 * N-Terminal proBNP 12/09/22 * N-Terminal proBNP 11/17/23 * N-Terminal proBNP 01/28/23 Radiology* CT Thorax w/o Contrast 11/24/23 [facility] Evaluation + Plan note Future Appointments Appointment Date:10/04/2023 03:30:00 PM Scheduled Provider: Location:[facility] Appointment Type:CV Office Procedure ICD Appointment Date:01/04/2024 08:00:00 AM Scheduled Provider: Location:[facility] Appointment Type:CV Remote Procedure HM Future Scheduled Tests Laboratory* Basic Metabolic Panel 09/16/22 * Basic Metabolic Panel 09/30/22 * Basic Metabolic Panel 10/14/22 * Basic Metabolic Panel 10/28/22 * Basic Metabolic Panel 11/11/22 * Basic Metabolic Panel 11/25/22 * Basic Metabolic Panel 06/11/23 * Urinalysis 04/29/23 * Lipid Profile 11/17/23 * Albumin/Creatinine Ratio, Random Urine 04/29/23 * N-Terminal proBNP 09/16/22 * N-Terminal proBNP 09/30/22 * N-Terminal proBNP 10/14/22 * N-Terminal proBNP 10/28/22 * N-Terminal proBNP 11/11/22 * N-Terminal proBNP 11/25/22 * N-Terminal proBNP 12/09/22 * N-Terminal proBNP 11/17/23 * N-Terminal proBNP 01/28/23 Radiology* CT Thorax w/o Contrast 11/24/23 [facility] Evaluation + Plan note Future Appointments Appointment Date:10/28/2023 01:00:00 PM Scheduled Provider: Location:[facility] Appointment Type:OT Outpatient Evaluation Appointment Date:10/29/2023 11:30:00 AM Scheduled Provider:ADRIENNE BYERS DO Location:[facility] Appointment Type:PC OV TCM 30 Appointment Date:11/02/2023 10:45:00 AM Scheduled Provider: Location:[facility] Appointment Type:CV OV Appointment Date:11/10/2023 10:30:00 AM Scheduled Provider: Location:[facility] Appointment Type:CV Office Procedure ICD Appointment Date:01/04/2024 08:00:00 AM Scheduled Provider: Location:[facility] Appointment Type:CV Remote Procedure HM Future Scheduled Tests Laboratory* Basic Metabolic Panel 10/28/22 * Basic Metabolic Panel 11/11/22 * Basic Metabolic Panel 11/25/22 * Basic Metabolic Panel 06/11/23 * Urinalysis 04/29/23 * Albumin/Creatinine Ratio, Random Urine 04/29/23 * N-Terminal proBNP 10/28/22 * N-Terminal proBNP 11/11/22 * N-Terminal proBNP 11/25/22 * N-Terminal proBNP 12/09/22 * N-Terminal proBNP 01/28/23 Radiology* CT Thorax w/o Contrast 11/24/23 [facility] Evaluation + Plan note Future Appointments Appointment Date:12/30/2023 01:30:00 PM Scheduled Provider: Location:[facility] Appointment Type:OT Treatment Appointment Date:01/03/2024 01:30:00 PM Scheduled Provider: Location:[facility] Appointment Type:OT Treatment Appointment Date:02/21/2024 02:30:00 PM Scheduled Provider:ADRIENNE BYERS DO Location:[facility] Appointment Type:PC OV Appointment Date:03/03/2024 02:45:00 PM Scheduled Provider: Location:[facility] Appointment Type:CV Remote Procedure Future Scheduled Tests Laboratory* Basic Metabolic Panel 06/11/23 * Ferritin 02/25/24 * Urinalysis 04/29/23 * Thyroid Stimulating Hormone 02/25/24 * A1C Hemoglobin 02/25/24 * Complete Blood Count 02/25/24 * Lipid Profile 05/03/24 * Lipid Profile 02/25/24 * Albumin/Creatinine Ratio, Random Urine 04/29/23 * Albumin/Creatinine Ratio, Random Urine 02/25/24 * Vitamin D Level 02/25/24 * Complete Metabolic Panel 02/25/24 * N-Terminal proBNP 05/03/24 * N-Terminal proBNP 01/28/23 Radiology* CT Thorax w/o Contrast 11/24/23 [facility] Evaluation + Plan note Future Appointments Appointment Date:02/21/2024 02:30:00 PM Scheduled Provider:AD[facility]NE BYERS [facility] Type:PC OV Appointment Date:03/03/2024 02:45:00 PM Scheduled Provider: Location:[facility] Appointment Type:CV Remote Procedure Future Scheduled Tests Laboratory* Basic Metabolic Panel 06/11/23 * Ferritin 02/25/24 * Urinalysis 04/29/23 * Thyroid Stimulating Hormone 02/25/24 * A1C Hemoglobin 02/25/24 * Complete Blood Count 02/25/24 * Lipid Profile 05/03/24 * Lipid Profile 02/25/24 * Albumin/Creatinine Ratio, Random Urine 04/29/23 * Albumin/Creatinine Ratio, Random Urine 02/25/24 * Vitamin D Level 02/25/24 * Complete Metabolic Panel 02/25/24 * N-Terminal proBNP 05/03/24 * N-Terminal proBNP 01/28/23 Radiology* CT Thorax w/o Contrast 11/24/23 [facility] Evaluation + Plan note Future Appointments Appointment Date:06/06/2024 08:30:00 AM Scheduled Provider: Location:[facility] Appointment Type:CV OV Appointment Date:06/16/2024 10:00:00 AM Scheduled Provider: Location:[facility] Appointment Type:CV Remote Procedure Appointment Date:06/23/2024 01:30:00 PM Scheduled Provider:ADRIENNE BYERS [facility] Type:PC OV Future Scheduled Tests Laboratory* Basic Metabolic Panel 06/11/23 * Urinalysis 04/29/23 * Lipid Profile 05/03/24 * Albumin/Creatinine Ratio, Random Urine 04/29/23 * Albumin/Creatinine Ratio, Random Urine 02/25/24 * N-Terminal proBNP 05/03/24 Radiology* CT Thorax w/o Contrast 11/24/23 [facility] Evaluation + Plan note Future Appointments Appointment Date:06/06/2024 08:30:00 AM Scheduled Provider: Location:[facility] Appointment Type:CV OV Appointment Date:06/16/2024 10:00:00 AM Scheduled Provider: Location:[facility] Appointment Type:CV Remote Procedure HM Appointment Date:06/23/2024 01:30:00 PM Scheduled Provider:ADRIENNE BYERS DO Location:[facility] Appointment Type:PC OV Appointment Date:12/07/2024 03:00:00 PM Scheduled Provider:ADRIENNE BYERS DO Location:[facility] Appointment Type:PC Wellness Medicare Future Scheduled Tests Laboratory* Basic Metabolic Panel 06/11/23 * Albumin/Creatinine Ratio, Random Urine 02/25/24 Radiology* CT Thorax w/o Contrast 11/24/23 [facility] Evaluation note* Diagnosis Tremor of left hand- [facility] [place] [facility] Diagnosis Parkinsonism, unspecified Parkinsonism type (HCC)- Primary Tremor of left hand [facility] [place] [facility] 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 Parkinson disease (HCC) Paralysis agitans Nocturnal muscle cramp Cramp of limb [facility] [place] [facility] Diagnosis Tremor of left hand [facility] [place] [facility]* Diagnosis History of stroke- Primary Transient ischemic attack (TIA), and cerebral infarction without residual deficits Spasticity Abnormal involuntary movements Spastic hemiparesis (HCC) Spastic hemiplegia affecting unspecified side [facility] [place] [facility]* 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 Parkinsonism, unspecified Parkinsonism type (HCC) [facility] [place] noteNo assessment information availableW[facility] Work Phone: Evaluation note* Diagnosis Onset Date Resolution Status Cerebrovascular disease acut e CVA (cerebral vascular accident) acute AV node dysfunction acute Ischemic cardiomyopathy acut e Presence of biventricular im plantable cardioverter-defibrillator acute [facility] Work Phone: Evaluation note* Diagnosis Onset Date Resolution Status Cerebrovascular disease acut e CVA (cerebral vascular accident) acute AV node dysfunction acute Ischemic cardiomyopathy acut e Presence of biventricular im plantable cardioverter-defibrillator acute Anxiety acute CVA (cerebral vascular accident) acute Debility acute Depression acute Diabetes mellitus acute GERD (gastroesophageal reflux disease) acute Muscle spasm acute Overactive bladder acute Transient ischemic attack ac [place] Vitamin D deficiency acute HLD (hyperlipidemia) chronic HTN (hypertension) chronic CVA (cerebral vascular accident) acute [facility] Work Phone: Evaluation note* Diagnosis Onset Date Resolution Status Cerebrovascular disease acut e AV node dysfunction acute Ischemic cardiomyopathy acut e Presence of biventricular im plantable cardioverter-defibrillator acute Anxiety acute Debility acute Depression acute Diabetes mellitus acute GERD (gastroesophageal reflux disease) acute Muscle spasm acute Overactive bladder acute Transient ischemic attack ac [place] Vitamin D deficiency acute HLD (hyperlipidemia) chronic HTN (hypertension) chronic Ischemic cardiomyopathy acut e Transient ischemic attack ac [place] PFO (patent foramen ovale) c [facility] Work Phone: Evaluation note* Diagnosis Essential tremor- Primary Essential and other specified forms of tremor Tremor of left hand [facility] [place] [facility]* Diagnosis Onset Date Resolution Status Cerebrovascular disease acut e AV node dysfunction acute Ischemic cardiomyopathy acut e Presence of biventricular im plantable cardioverter-defibrillator acute Anxiety acute Debility acute Depression acute Diabetes mellitus acute GERD (gastroesophageal reflux disease) acute Muscle spasm acute Overactive bladder acute Vitamin D deficiency acute HLD (hyperlipidemia) chronic HTN (hypertension) chronic Ischemic cardiomyopathy acut e PFO (patent foramen ovale) c [facility] Work Phone: Evaluation note* Diagnosis Onset Date Resolution Status Colitis acute Gastrointestinal bleeding, lower acute [facility] Work Phone: Evaluation note* Diagnosis Onset Date Resolution Status Colitis resolved CVA (cerebral vascular accident) resolved Gastrointestinal bleeding, lower resolved Acute kidney injury acute Anxiety acute Clostridium difficile colitis acute Debility acute Depression acute Diabetes mellitus acute GERD (gastroesophageal reflux disease) acute Heart failure with reduced ejection fraction acute Insomnia acute Leg cramp acute Muscle spasm acute Overactive bladder acute Vitamin D deficiency acute HLD (hyperlipidemia) chronic Colitis resolved CVA (cerebral vascular accident) resolved Gastrointestinal bleeding, lower resolved [facility] Work Phone: Evaluation note* Diagnosis History of stroke- Primary Transient ischemic attack (TIA), and cerebral infarction without residual deficits Spasticity Abnormal involuntary movements [facility] Diagnosis Other constipation [facility] [place] [facility] Diagnosis Other constipation- Primary Other constipation [facility] [place] [facility]* Diagnosis Dizziness and giddiness documented in this encounter [facility] note* Diagnosis Other forms of dyspnea documented in this encounter [facility] note* Diagnosis Other forms of dyspnea- Primary documented in this encounter [facility] note* Diagnosis Dizziness and giddiness- Primary Dizziness and giddiness documented in this encounter [facility] note* Diagnosis Tardive dyskinesia- Primary Subacute dyskinesia due to drugs documented in [facility]* Diagnosis Essential tremor- Primary Essential and other specified forms of tremor Dyskinesia, tardive Subacute dyskinesia due to drugs documented in [facility]* Diagnosis Presence of cardiac pacemaker Cardiac pacemaker in situ documented in this encounter [facility] note* Diagnosis Essential tremor Essential and other specified forms of tremor Dyskinesia, tardive Subacute dyskinesia due to drugs documented in [facility]* Diagnosis Tardive dyskinesia- Primary Subacute dyskinesia due to drugs [facility] Author Jaci Greco [facility] October 07, 2023 2:38pm Note Date/Time October 07, 2023 1:59pm [facility] Medical Records Department [address] [place] [id number] H&P Exam - Hospitalist 10/07/23 1355 MR#: [id number] Acct: [id number] Name: MANSI CARO Rep #:[id number] : 1955 68 From: Jaci Greco MD PCP: Dr. Adrienne Byers, DO Status:REG ER Location: ED HPI - General General Date of Admission: 10/07/23 Date of Service: 10/07/23 Chief Complaint: Recurrent stroke like symptoms. 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 with questionable remote history of PFO per record, Diabetes mellitus type II, CAD s/p PCI, HFrEF/Hx AV fredi dysfunction/Ischemic Cardiomyopathy s/p AICD, RLS, recent admission 09/28/23- 10/01/23 following admission for confusion/altered speech as well as dizziness and blurred vision with NIH stroke score 2 upon ED initial evaluation transition to TCU for rehab admitted for stroke work-up with unremarkable MRI maintain on aspirin and Plavix who now re-presents to the [facility] ED on 10/07/23 with history of stroke alert at approximately noon with dysarthria, mild right lower extremity paresthesias in addition to right-sided weakness with initial ED evaluation with right upper extremity and right lower extremity drift in addition to right lower extremity paresthesias and dysarthriaconcurrently with history of stroke in 2008 with a similar presentation with residual right leg spasticity although it supposedly improved and patient/ note not only of the similar to 2009 but similar to her recent presentation. Once patient reevaluated upon transition to ED room NIH stroke scale 5. NIHSS then by teleneurology was noted to be 3. Work-up in the ED included T97.8, heart rate initially 46 with most recent repeat 69, BP 140/87 with most recent repeat 126/98, respiratory rate 15, 95% on room air, CBC with WBC 6.4, hemoglobin 12, platelet 153 without marked shift, unremarkable coags, BMP with chloride 108, BUN/creatinine 27/1.17, glucose 137, troponin 8, CT the brain with chronic involutional changes, CTA head and neck with plaque formationat the origin of the left and right internal carotid arteries causing less than 50% stenosis similar to previous, EKG paced without acute evidence of ischemia. Stroke alert occurred and teleneurology was consulted with noted more concern for spasticity with recommendation for antispasmodics with increase of baclofen which is only twice daily with recommendation for also EEG to assure no seizure activity. In the ED patient administered baclofen 10 mg p.o. x1. [facility] Medical History (Updated 10/07/23 @ 14:[address] Jaci Greco MD) Anxiety and depression AV node dysfunction Cardiac resynchronization therapy defibrillator (HEAD BELLHOP CAPTAIN-D) in place Cerebral palsy Coronary artery disease Diabetes mellitus Former smoker Heart failure with reduced ejection fraction High cholesterol Hyperlipidemia Hypertension ICD (implantable cardioverter-defibrillator) in place Insomnia Ischemic cardiomyopathy Myocarditis PFO (patent foramen ovale) Presence of biventricular implantable cardioverter-defibrillator Restless legs Ulcer Home Medications citalopram 20 mg tablet 20 mg PO QHS depression 11/18/14 [History Last Taken 10/06/23] clonazepam 1 mg tablet 1 mg PO QHS anxiety 11/18/14 [History Last Taken 10/06/23] metformin 500 mg tablet 500 mg PO DAILY diabetes 11/18/14 [History Last Taken 10/07/23] multivitamin with folic acid 400 mcg tablet (Thera) 1 tab PO DAILY vitamin 11/18/14 [History Last Taken 10/07/23] trazodone 50 mg tablet 50 mg PO DAILY PRN Anxiety 11/18/14 [History Last Taken 10/06/23] clopidogrel 75 mg tablet 1 tab PO QHS anti platelet 05/18/16 [History Last Taken 10/06/23] empagliflozin 10 mg tablet (Jardiance) 10 mg PO DAILY diabetes 09/28/23 [History Last Taken 10/07/23] metoprolol succinate 25 mg tablet,extended release 24 hr 12.5 mg PO DAILY blood pressure 09/28/23 [History Last Taken 10/07/23] pantoprazole 40 mg tablet,delayed release 40 mg PO BID stomach acid 09/28/23 [History Last Taken 10/07/23] sacubitril-valsartan 0.5 tab PO BID HTN 09/28/23 [History Last Taken 10/07/23] cholecalciferol (vitamin D3) 25 mcg (1,000 unit) tablet 50 mcg (2 x 25 mcg (1,000 unit)) PO QHS supplement #0 tabs 09/30/23 [Rx Last Taken 10/06/23] aspirin 81 mg tablet,delayed release 81 mg PO DAILY heart 10/01/23 [History Last Taken 10/07/23] atorvastatin 40 mg tablet 40 mg PO QHS CHOLESTEROL 10/07/23 [History Last Taken 10/06/23] baclofen 10 mg tablet 10 mg PO BID MUSCLE SPASMS 10/07/23 [History Last Taken 10/07/23] enoxaparin 40 mg/0.4 mL subcutaneous syringe 40 mg subcut 0600 BLOOD THINNER 10/07/23 [History Last Taken 10/07/23] spironolactone 25 mg tablet 12.5 mg PO MOWEFR FLUID 10/07/23 [History Last Taken 10/06/23] Allergy/AdvReac Type Severity Reaction Status Date / Time No Known Allergies Allergy Verified 10/07/23 12:48 Family History (Updated 10/07/23 @ 14:[address] Jaci Greco MD) Father Heart disease Mother Anxiety and depression Suicide and self-inflicted injury from suicide age 52. Surgical History (Updated 10/07/23 @ 13:[address] Jaci Greco MD) History of cardiac defibrillator placement History of cholecystectomy History of coronary artery stent placement History of skin surgery S/P colon polypectomy Social History (Updated 10/07/23 @ 14:[address] Jaci Greco MD) household members: spouse Smoking Status: Former smoker how long ago did patient quit smokin-1.5 ppd from teen until quit in 2008. alcohol intake: never substance use type: does not use ROS ROS Narrative Admission Review of Systems: CONSTITUTIONAL: No weight loss, fever, chills, + weakness or fatigue. HEENT: + Vision blurring. Eyes: No visual loss, double vision or yellow sclerae. Ears, Nose, Throat: No hearing loss, sneezing, congestion, runny nose or sore throat. SKIN: No rash or itching, lesions, wounds. CARDIOVASCULAR: No chest pain, chest pressure or chest discomfort, palpitations,edema, orthopnea, syncopal events. RESPIRATORY: No shortness of breath, cough or sputum, wheezing, hemoptysis. GASTROINTESTINAL: No anorexia, nausea, vomiting or diarrhea, abdominal pain, melena, BRBPR. GENITOURINARY: No dysuria, frequency, urgency or retention. NEUROLOGICAL: + Dizziness, right lower extremity paresthesias, dysarthria, rightupper and lower extremity focal weakness. No headache, syncope, , change in bowel or bladder control, seizure. MUSCULOSKELETAL: + muscle, back pain, joint pain or stiffness. HEMATOLOGIC: No anemia. Easy bleeding/bruising. LYMPHATICS: No enlarged nodes. No history of splenectomy. PSYCHIATRIC: + history of depression or anxiety. ENDOCRINOLOGIC: No reports of sweating, cold or heat intolerance. No polyuria orpolydipsia. ALLERGIES: No history of asthma, hives, eczema or rhinitis. Vital Signs Vital Signs Vital Signs: 10/07/23 12:35 10/07/23 12:46 10/07/23 12:50 Temperature 97.8 F Temperature Source Temporal Pulse Rate 46 L 46 L Respiratory Rate 16 16 Blood Pressure 140/87 H 140/87 H Blood Pressure Mean 104 104 Pulse Ox 94 Oxygen Delivery Method Room Air Room Air Room Air 10/07/23 12:56 10/07/23 13:07 10/07/23 13:30 Temperature Temperature Source Pulse Rate 85 69 63 Respiratory Rate 18 15 28 H Blood Pressure 157/79 H 126/98 H 126/98 H Blood Pressure Mean 105 107 107 Pulse Ox 96 95 96 Oxygen Delivery Method Room Air Room Air Room Air Weight Weight: 139 lb 5.314 oz Body Mass Index (BMI) 21.2 Physical Exam Narrative Physical Examination: General: Awake, alert, oriented to self, place and events, remains cooperative, seated upright in bed in no apparent distress, notes she has been waxingand waning as far as spasms, still notes mild vision blurring, had resolved, nowafter she took baclofen. Skin: Normal color, normal turgor, no icterus, no cyanosis except occasional staged ecchymoses. HEENT: AT/NC, EOMI, PERRLA, dry MM, likely lower frontal dentition, questionableeye nystagmus, no carotid bruits or JVD noted. Lungs: CTA bilaterally, moderate effort, mild decrease BL bases, no rales, ronchi or wheezing. Heart: Paced; no gallop, rub audible. Abdomen: Soft, NTTP, ND, normal BS, no HSM. Extremities: No cyanosis, clubbing, or edema, currently muscles and the extremities are nice and soft with no spasms currently noted. Neurological: Patient awake, alert, oriented as noted, cognitive function appears improved, currently seems intact; pupils equally reactive to light and accommodation, cranial nerves grossly intact however appearance of eye nystagmus, moving all 4 extremities, R sided upper and lower drift noted, some difficulty with R sided HTS/FTN, no marked paresthesias currently otherwise L appropriate, equivocal babinski. Psychiatric: Affect appears flat, no acute evidence of depressive or anxiety feelings but does have underlying history. Results Lab / Micro Data 10/07/23 12:37 10/07/23 12:37 Labs: Laboratory Results - last 24 hr 10/07/23 12:37: WBC 6.4, RBC 3.91 L, Hgb 12.0, Hct 37.8, MCV 96.7, MCH 30.7, MCHC 31.7 L, RDW Std Deviation 48.8 H, RDW Coeff of Edita 13.6, Plt Count 153, MPV11.7, Immature Gran % (Auto) 0.200, Neut % (Auto) 41.7 L, Lymph % (Auto) 47.6 H,[place] % (Auto) 9.0, Eos % (Auto) 0.9, Baso % (Auto) 0.6, Absolute Neuts (auto) 2.7, Absolute Lymphs (auto) 3.02, Nucleated RBC % 0, PT 12.9, INR 1.0, APTT 28.7, Sodium 140, Potassium 4.4, Chloride 108 H, Carbon Dioxide 26.0, Anion Gap 6, BUN 27 H, Creatinine 1.17 H, Estim Creat Clear Calc 44.64, Est GFR (MDRD) Af Amer 59 L, Est GFR (MDRD) Non-Af 49 L, BUN/Creatinine Ratio 23.1 H, Glucose 137 H, Calcium 9.2, Troponin I High Sens [address] 10/07/23 12:37 IMPRESSION: Chronic involutional changes of the brain. Stable examination. N.B. : The above Results were Read Back by Yousif Elena MD to Dr Estephania DO, and understanding confirmed on 10/07/2023 12:53:48 (ET). Electronically Signed: Yousif Elena MD at 12:55 EST , ADDENDUM: 10/07/23 1302 IMPRESSION: Chronic involutional changes of the brain. Stable examination. N.B. : The above Results were Read Back by Yousif Elena MD to Dr Estephania DO, and understanding confirmed on 10/07/2023 12:53:48 (ET). Electronically Signed: Yousif Elena MD at 12:55 EST , Head/Neck CTA 10/07/23 12:37 IMPRESSION: Plaque formation at the origin of the left and right internal carotid arteries causing less than 50% stenosis. Stable study. N.B. : The above Results were Read Back by Yousif Elena MD to David Best and understanding confirmed on 10/07/2023 13:09:24 (ET). Electronically Signed: Yousif Elena MD at 13:10 EST , ADDENDUM: 10/07/23 1317 IMPRESSION: Plaque formation at the origin of the left and right internal carotid arteries causing less than 50% stenosis. Stable study. N.B. : The above Results were Read Back by Yousif Elena MD to David Best and understanding confirmed on 10/07/2023 13:09:24 (ET). 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 with questionable remote history of PFO per record, Diabetes mellitus type II, CAD s/p PCI, HFrEF/Hx AV fredi dysfunction/Ischemic Cardiomyopathy s/p AICD, RLS, recent admission 09/28/23- 10/01/23 following admission for confusion/altered speech as well as dizziness and blurred vision with NIH stroke score 2 upon ED initial evaluation transition to TCU for rehab admitted for stroke work-up with unremarkable MRI maintain on aspirin and Plavix who now re-presents to the [facility] ED on 10/07/23 with history of stroke alert at approximately noon with dysarthria, mild right lower extremity paresthesias in addition to right-sided weakness. #1. Recurrent right-sided weakness concerning for Acute Spasticity versus Possible Seizure activity, Neurology low suspicion for recurrent Acute CVA with History remote L MCA w/ residual RLE reported spasticity complicated by reported CP history: Will admit to PCU, per neurology recommendation we will increase antispasmodic baclofen dosing and frequency, will maintain on fall and aspiration precautions, will continue NIH stroke scale assessments to be cautious pending repeat MRI brain however will obtain with and without to be thorough, will request EEG and will continue PT/OT/Speech/Nutrition evaluation. Again neurology with low suspicion for recurrent stroke but recommends MRI to becautious therefore will maintain on permissive hypertensive regimen until MRI results noted, maintain on aspirin and Plavix as well as statin, recent assessment therefore will not repeat TSH (09/28/2023 TSH 2.94) but will obtain magnesium. We will also request hemoglobin A1c as this does not appear to have been performed recently. Once imaging and EEG is obtained would plan for repeat consultation with neurology at that time. Will have low dose PRN ativan for seizure activity. #2. Mild acute renal insufficiency with CKD stage II per GFR trending: Admission BUN/creatinine 27/1.17, per GFR trending patient appears to be CKD stage II primarily with GFR greater than 60 normally currently reduced, baselinecreatinine 0.9-1 primarily, we will very judiciously hydrate given history HFrEFand repeat CMP in AM. #3. Questionable chart reported history of PFO: 09/28/2023 echocardiogram with no evidence of diastolic dysfunction, EF 55%, chart reported previous negative bubble study however records also mention history of PFO with last echo prior tothis 05/19/2016 with EF 65%, stage I diastolic dysfunction, RVSP 20 mmHg with no appreciable change since 2007. #4. CAD: s/p PCI, will continue aspirin, Plavix, statin, temporary permissive hypertension as noted. #5. HFrEF/Hx AV fredi dysfunction/Ischemic Cardiomyopathy: s/p AICD, recent admission for similar strokelike symptoms with echocardiogram as noted above, will continue aspirin, Plavix, statin, temporally holding patient home spironolactone, Entresto, metoprolol for permissive hypertension with resumptiononce appropriate. Will judiciously hydrate given history. Recent AICD assessment 09/30/2023 without issue reported. #6. Diabetes mellitus type II: Hold oral home regimen, ADA diet, accu checks w/ISS. Hemoglobin A1c requested as from records does not appear recently performed. #7. Anxiety and depression: We will continue patient home clonazepam with hold for sedation and citalopram. #8. Hypertension: We will maintain temporary permissive hypertension pending MRI of the brain given acute presentation with parent agents per stroke protocol, add back regimen once appropriate. #9. Hyperlipidemia: We will continue patient on statin therapy, defer FLP repeat given recent stroke work-up. #10. Restless leg syndrome: Not on any specific chronic regimen however does use clonazepam nightly and baclofen twice daily however these are for spasticity. #11. GERD: We will continue patient home PPI. #12. DVT prophylaxis: Lovenox. #13. CODE status: Patient BLANCA is her who is present and living will is currently in place. Discussed CODE status at length including difference between FULL code, DNR-CCA and DNR-CC status. Following discussions about the differences in these status, requested Full Code status. Advanced Care Planning Face to Face Time: 16 minutes. Charges/Coding Visit Charges Inpatient E&M: 79221 Init Hosp L3 Procedures Hospitalists Procedures: 64821 Advncd Care Plan 30 Min 10/07/23 1438 <Electronically signed by Jaci Greco MD> Cosigner Signature (if applicable): CC: Dr. Jaci Greco MD; Dr. Adrienne Byers, ~ Signed [facility] Work Phone: History and physical note Author Ben Johnson [facility] February 21, 2024 9:35pm Note Date/Time February 21, 2024 9:35 pm [facility] Medical Records Department [address] [place] [address] H&P Exam - Hospitalist 02/21/242124 MR#: [id number] Acct: [id number] Name: MANSI CARO Rep #:[id number] : 1955 69 From: Ben Johnson DO PCP: Dr. Adrienne Byers DO Status:ADM IN Location: [facility] [place] [id number] HPI - General General Date of Admission: 02/21/24 Date of Service: 02/21/24 Chief Complaint: Abdominal pain, bright red blood in stool HPI Narrative MANSI CARO, is a 69 F who presents to the emergency room at [facility] for evaluation of right red rectal bleeding along with left lower quadrant abdominal pain. Patient was seen 2 days ago in the emergency room, CATscan was obtained at that time with IV contrast and showed a large stool burden,she was discharged home with instructions to use laxatives. She is continue to have left lower quadrant abdominal pain however and today she noted that there was blood in her stool. Patient states she has diarrhea. Workup in the emergency room included a CBC which showed an elevated white bloodcell count at 20.5, creatinine was elevated at 2.08 and BUN was 31, lactic acid was 2.3, glucose was 241. Patient's urinalysis was unremarkable except for leukocyte Estrace positive. Patient had an abdominal and pelvic CT with oral contrast only, there is noted to be new inflammation along the length of the descending colon concerning for infectious or inflammatory colitis. Sigmoid colonic diverticulosis was noted soren present without diverticulitis. There is noted to be a new hyperdensity within the previous hypodense left renal upper pole cyst on February 19, 2024. It was recommended that a follow-up contrast-enhanced CT be done when clinically able to exclude underlying solid neoplastic component. Patient will be admitted to [place] [address], she will be placed on IV antibiotics, shewill be seen by gastroenterology, she may need endoscopic procedures. Labs willbe monitored. [facility] Medical History Anxiety and depression AV node dysfunction Cardiac resynchronization therapy defibrillator (HEAD BELLHOP CAPTAIN-D) in place Cerebral palsy Congestive heart failure (CHF) Coronary artery disease CVA (cerebral vascular accident) Diabetes mellitus Former smoker Heart failure with reduced ejection fraction High cholesterol Hyperlipidemia Hypertension ICD (implantable cardioverter-defibrillator) in place Insomnia Ischemic cardiomyopathy Myocarditis Pacemaker PFO (patent foramen ovale) Presence of biventricular implantable cardioverter-defibrillator Restless legs Transient ischemic attack Ulcer Home Medications citalopram 20 mg tablet 20 mg PO QHS depression 11/18/14 [History Last Taken 10/06/23] clonazepam 1 mg tablet 1 mg PO QHS anxiety 11/18/14 [History Last Taken 10/06/23] multivitamin with folic acid 400 mcg tablet (Thera) 1 tab PO DAILY vitamin 11/18/14 [History Last Taken 10/07/23] trazodone 50 mg tablet 50 mg PO DAILY PRN Anxiety 11/18/14 [History Last Taken 10/06/23] clopidogrel 75 mg tablet 1 tab PO QHS anti platelet 05/18/16 [History Last Taken 10/06/23] empagliflozin 10 mg tablet (Jardiance) 10 mg PO DAILY diabetes 09/28/23 [History Last Taken 10/07/23] metoprolol succinate 25 mg tablet,extended release 24 hr 12.5 mg PO DAILY blood pressure 09/28/23 [History Last Taken 10/07/23] pantoprazole 40 mg tablet,delayed release 40 mg PO BID stomach acid 09/28/23 [History Last Taken 10/07/23] cholecalciferol (vitamin D3) 25 mcg (1,000 unit) tablet 50 mcg (2 x 25 mcg (1,000 unit)) PO QHS supplement #0 tabs 09/30/23 [Rx Last Taken 10/06/23] aspirin 81 mg tablet,delayed release 81 mg PO DAILY heart 10/01/23 [History Last Taken 10/07/23] spironolactone 25 mg tablet 12.5 mg PO MOWEFR FLUID 10/07/23 [History Last Taken 10/06/23] baclofen 5 mg tablet 5 mg PO BID 02/21/24 [History Last Taken Unknown] calcium carbonate 600 mg-vitamin D3 10 mcg (400 unit) tablet 1 tab PO BID 02/21/24 [History Last Taken Unknown] escitalopram oxalate 10 mg tablet 10 mg PO DAILY 02/21/24 [History Last Taken Unknown] metformin 500 mg tablet,extended release 24 hr 500 mg PO DAILY 02/21/24 [History Last Taken Unknown] oxybutynin chloride 5 mg tablet,extended release 24 hr 5 mg PO DAILY 02/21/24 [History Last Taken Unknown] rosuvastatin 20 mg tablet 20 mg PO QHS 02/21/24 [History Last Taken Unknown] sacubitril 24 mg-valsartan 26 mg tablet (Entresto) 0.5 tab PO BID 02/21/24 [History Last Taken Unknown] Allergy/AdvReac Type Severity Reaction Status Date / Time No Known Allergies Allergy Verified 02/21/24 14:04 Family History Father Heart disease Mother Anxiety and depression Suicide and self-inflicted injury from suicide age 52. Surgical History History of cardiac defibrillator placement History of cholecystectomy History of coronary artery stent placement History of skin surgery S/P colon polypectomy Social History household members: spouse Smoking Status: Former smoker how long ago did patient quit smokin-1.5 ppd from teen until quit in 2008. alcohol intake: never substance use type: does not use ROS Constitutional Constitutional: Denies anorexia, change in weight, chills, fatigue, fever(s), malaise, night sweats or weakness Eyes Eyes: Denies blurry vision, change in vision, discharge from eye(s) or eye pain Cardiovascular Cardiovascular: Denies chest pain, claudication, dyspnea on exertion, edema or palpitations Respiratory/Chest Respiratory/Chest: Denies cough, hemoptysis, shortness of breath at rest or shortness of breath with exertion Gastrointestinal Gastrointestinal: Reports abdominal pain and hematochezia; Denies constipation, diarrhea, hematemesis, melena, nausea or vomiting Genitourinary Genitourinary: Denies difficulty urinating, dysuria, hematuria, urinary frequency, urinary hesitancy, urinary incontinence or urinary urgency Musculoskeletal Musculoskeletal: Denies back pain, joint pain, joint stiffness, joint swelling, myalgias or neck pain Neurologic Neurologic: Denies abnormal gait, abnormal speech, dizziness, focal weakness, headache(s), loss of vision, numbness, other visual disturbances, paresthesias, syncope or tingling Psychiatric Psychiatric: Denies anxiety, cognitive impairment, depression, irritability, mood swings or suicidal ideation Endocrine Endocrinology: Denies change in body appearance, cold intolerance, excessive sweating, heat intolerance, polydipsia or polyuria Hematologic/Lymphatic Hematologic/Lymphatic: Denies none, anemia, easy bleeding, easy bruising or lymphadenopathy Allergic/Immunologic Allergic/Immunologic: Denies rhinitis, urticaria, eczemia or asthma Vital Signs Vital Signs Vital Signs: 02/21/24 14:00 02/21/24 14:00 02/21/24 14:03 Temperature 97.1 F L 97.1 F L 97.1 F L Temperature Source Temporal Temporal Temporal Pulse Rate 91 91 91 Respiratory Rate 16 16 16 Blood Pressure 84/50 L 84/50 L 84/50 L Blood Pressure Mean 61 61 61 Pulse Ox 97 97 97 Oxygen Delivery Method Room Air Room Air Room Air 02/21/24 15:03 02/21/24 16:00 02/21/24 16:00 Temperature 98 F 98 F Temperature Source Temporal Temporal Pulse Rate 90 90 90 Respiratory Rate 18 18 18 Blood Pressure 94/57 L 100/60 100/60 Blood Pressure Mean 69 73 73 Pulse Ox 97 96 96 Oxygen Delivery Method Room Air Room Air Room Air 02/21/24 17:13 02/21/24 16:15 02/21/24 16:30 Temperature 98 F Temperature Source Temporal Pulse Rate 64 Respiratory Rate 18 Blood Pressure 102/62 104/40 L 96/55 L Blood Pressure Mean 75 59 69 Pulse Ox 98 Oxygen Delivery Method Room Air 02/21/24 16:45 02/21/24 17:13 02/21/24 17:15 Temperature Temperature Source Pulse Rate 63 Respiratory Rate 14 Blood Pressure 84/63 L 102/62 Blood Pressure Mean 70 72 Pulse Ox 81 Oxygen Delivery Method 02/21/24 17:30 02/21/24 17:45 02/21/24 18:00 Temperature Temperature Source Pulse Rate 63 67 69 Respiratory Rate 16 17 16 Blood Pressure 96/46 L 100/44 L 95/44 L Blood Pressure Mean 62 61 60 Pulse Ox 100 95 94 Oxygen Delivery Method 02/21/24 19:53 02/21/24 19:53 Temperature 98.2 F 98.2 F Temperature Source Oral Pulse Rate 66 66 Respiratory Rate 20 H 20 H Blood Pressure 105/45 L 105/45 L Blood Pressure Mean 65 65 Pulse Ox 97 97 Oxygen Delivery Method Room Air Weight Weight: 60.4 kg Body Mass Index (BMI) 20.2 Physical Exam Const alert, oriented x3, no apparent distress, average body habitus and healthy appearing General Appearance: cooperative, well kempt and well developed Orientation / Consciousness: awake, oriented to person, oriented to place and oriented to time HEENT normocephalic, head/scalp atraumatic, hearing grossly normal bilaterally and moist oral mucous membranes Eyes PERRL, EOMs intact bilaterally and conjunctivae normal Neck supple, no JVD, thyroid normal and no carotid bruits General: trachea midline Resp normal respiratory effort, no retractions, no use of accessory muscles and clearto auscultation bilaterally Auscultation: Negative for rales, rhonchi or wheezes Cardio regular rate, regular rhythm, S1 normal heart sound, S2 normal heart sound, no murmurs, no rub and no gallops GI normal to inspection, nondistended, normoactive bowel sounds, soft to palpation,non-tender and non-distended Extremity no clubbing, cyanosis or edema Skin no rashes or lesions noted General Skin Exam: no breakdown Neuro oriented x3, CN's II-XII intact bilaterally, moves all extremities, no focal motor deficits and no sensory deficits noted Neuro Narrative: Patient has a mild speech impediment Sensorium / Orientation: awake and alert Psych affect normal Results Lab / Micro Data 02/21/24 14:25 02/21/24 14:25 Labs: Laboratory Results - last 24 hr 02/21/24 14:25: WBC 20.5 H, RBC 3.98 L, Hgb 12.2, Hct 36.4 L, MCV 91.5, MCH 30.7, MCHC 33.5, RDW Std Deviation 45.0 H, RDW Coeff of Edita 13.3, Plt Count 198,MPV 11.3, Immature Gran % (Auto) 0.700, Neut % (Auto) 88.4 H, Lymph % (Auto) 5.3L, [place] % (Auto) 5.5, Eos % (Auto) 0.0, Baso % (Auto) 0.1, Absolute Neuts (auto)18.1 H, Absolute Lymphs (auto) 1.08, Nucleated RBC % 0, Sodium 137, Potassium 4.6, Chloride 100, Carbon Dioxide 24.0, Anion Gap 13, BUN 31 H, Creatinine 2.08 H, Est GFR (MDRD) Af Amer 30 L, Est GFR (MDRD) Non-Af 25 L, BUN/Creatinine Ratio14.9, Glucose 241 H, Calcium 9.4, Total Bilirubin 0.60, AST 35, ALT 28, AlkalinePhosphatase 58, Total Protein 7.8, Albumin 3.7, Globulin 4.1, Albumin/Globulin Ratio 0.9, Lipase 18 02/21/24 15:15: PT Cancelled, INR Cancelled, APTT Cancelled, Lactic Acid 2.3 H* 02/21/24 16:26: PT 15.1 H, INR 1.2, APTT 24.8 02/21/24 17:02: Urine Color Yellow, Urine Clarity Clear, Urine pH 5.0, Ur Specific [place] 1.015, Urine Protein 15 H, Urine Glucose (UA) 1000 H, Urine Ketones 5 H, Urine Occult Blood 10 H, Urine Nitrite Negative, Urine Bilirubin 1 H, Urine Urobilinogen 1 H, Ur Leukocyte Esterase 25 H, Urine RBC 0-5 SEEN, Urine WBC 0-5 SEEN, Ur Squamous Epith Cells 0-5 SEEN, Urine Bacteria 0 SEEN, Urine Mucus 0 SEEN 02/21/24 20:21: Lactic Acid 1.5 Micro: Microbiology 02/21/24 16:20 Stool Stool Occult Blood (EDUARDO) - Final Occult Blood Positive Imaging Radiology Impression Abdomen CT 02/21/24 16:37 IMPRESSION: New inflammation along the length of the descending colon concerning for infectious or inflammatory colitis. Interval resolution of previous large colonic stool burden. Consider GI follow-up. Sigmoid colonic diverticulosis without focal inflamed diverticulum is just diverticulitis. New hyperdensity within previously hypodense left renal upper pole cyst on February 19, 2024. Change in attenuation may represent interval hemorrhage within the cyst. Follow-up multiphasic contrast-enhanced CT is recommended when clinically able to exclude underlying solid neoplastic component. Aortic atherosclerosis with mild aneurysmal ectasia to 2.7 cm Electronically Signed: Antonio Max MD at 18:54 EDT Reading Location ID and State: [facility] / [place] Tel , Service support , Assessment & Plan Assessment/Plan (1) Gastrointestinal bleeding, lower: PLAN: Plan 1. Colitis-etiology unclear, patient will be admitted to [facility] 3, she was placed on IV antibiotics will be seen by gastroenterology, she may need endoscopic studies performed. #2 lower gastrointestinal bleeding secondary to #1-labs will be monitored #3 type 2 diabetes-patient's blood sugars will be monitored, sliding scale insulin will be given as necessary #4 ischemic cardiomyopathy-status post biventricular implantable cardio defibrillator-patient will remain on her outpatient medication #5 essential hypertension-patient will remain on her outpatient medications #6 cerebral palsy-complicates care, management, recovery, and prognosis #7 cerebrovascular disease-patient is currently on aspirin and Plavix, these will be held due to her lower GI bleeding #8 hyperlipidemia-patient is on statin #9 chronic anxiety/depression-patient will remain on her outpatient medications #10 abnormality of the left renal upper pole cyst-patient will need follow-up multiphase contrast-enhanced CT when clinically able to exclude underlying solid neoplastic component. Dayshift hospitalist will need to arrange this. Total clinical time spent by myself addressing the patient's medical issues, reviewing all of her data, and collaborating with patient's care team: 75 minutes Charges/Coding Visit Charges Inpatient E&M: 29706 Init Hosp L3 02/21/242134 <Electronically signed by Ben Johnson DO> Cosigner Signature (if applicable): CC: Dr. Ben Johnson, ; Dr. Adrienne Byers, ~ Signed [facility] Work Phone: Hospital course Narrative No data available for this section [facility] Hospital Discharge instructions No data available for this section [facility] Hospital Discharge instructions Additional Instructions Follow-up at your PCP appointment on Wednesday and return for any worsening of your symptoms. Stay well-hydrated, you can take either MiraLAX or Dulcolax for your constipation. [facility] Work Phone: Hospital Discharge instructions Additional Instructions You can take [id number] pain relievers or your oxycodone as needed for breakthrough pain. 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, unspecified Parkinsonism type (HCC) Procedures NM BRAIN TREMOR SPECT/CT RP LOCLZJ YASMANI SPECT W/CT 1 AREA 1 DAY IMAGING Sherif Ramirez MD [address] [place] [address] Molecular & Functional Imaging [address] [place] [address] Referral ID Status Reason Start Date Expiration Date Visits Requested Visits Authorized [id number] Authorized Auto-Generat ed Referral 07/01/2023 07/30/2024 1 1 [facility] for visit Narrative* Diagnostic Procedure Only (Routine) - Closed Specialty Diagnoses / Procedures Referred By Oni angel Referred To Contact MOLECULAR & FUNCTIONAL IMAGING 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, unspecified Parkinsonism type Procedures NM BRAIN TREMOR SPECT/CT RP LOCLZJ YASMANI SPECT W/CT 1 AREA 1 DAY IMAGING Sherif Ramirez MD [address] [place] [address] Molecular & Functional Imaging [address] [place] [address] Referral ID Status Reason Start Date Expiration Date V isits Requested Visits Authorized [id number] Closed Auto-Generate d Referral 07/01/2023 07/30/2024 1 1 [facility] for visit Narrative* Diagnostic Procedure Only (Routine) - Closed Specialty Diagnoses / Procedures Referred By Oni angel Referred To Contact Radiology / RADIO CT SCAN Diagnoses Solitary pulmonary nodule CT CHEST W/O CONTRAST R91.1 pulmonary nodule ORDER IN SCANNED DOCS AUTH # [id number] VALID 07.12.24 TO 09.10.24 Procedures DIAGNOSTIC COMPUTED TOMOGRAPHY THORAX W/O CNTRST CT WO CH 400 Martha Pillai V, MD [address] Scan [facility] [address] [place] [address] Referral ID Status Reason Start Date Expiration Date Visits Re quested Visits Authorized [id number] Closed 07/12/2024 09/10/2024 1 1 [facility] for visit Narrative* Imaging (Routine) - Closed Specialty Diagnoses / Procedures Referred By Contac t Referred To Contact Cardiology Diagnoses Dizziness and giddiness Procedures Vascular US carotid artery duplex bilateral Pina Isidro [address] [place] [address] Phone: tel: fax: Referral ID Status Reason Start Date Expiration Date Visits Re quested Visits Authorized [id number] Closed 11/07/2024 11/07/2025 1 1 [facility] for visit Narrative* (Routine) - Pending Review Specialty Diagnoses / Procedures Referred By Contac t Referred To Contact Diagnoses Other forms of dyspnea Procedures Complete PFT pre and post bronchodilator Marci Lopez [address] [place] [address] Phone: tel: fax: Referral ID Status Reason Start Date Expiration Date V isits Requested Visits Authorized [id number] Pending Review 10/13/2024 10/08/2025 1 1 [facility] for visit Narrative* MRI/CT (Routine) - Authorized Specialty Diagnoses / Procedures [facility] Referred To Contact Radiology / RADIO CT SCAN Diagnoses Other nonspecific abnormal finding of lung field CT Chest wo contrast DX: R91.8 Auth# [id number] Order scanned into chart on 01/05/2025 Procedures DIAGNOSTIC COMPUTED TOMOGRAPHY THORAX W/O CNTRST CT WO 400 Kalen Izaguirre MD [address] [address] Phone: tel: fax: RADIO CT SCAN [facility] [address] [place] [address] Phone: tel: fax: Referral ID Status Reason Start Date Expiration Date V isits Requested Visits Authorized [id number] Authorized 01/02/2025 03/03/2025 2 2 [facility] for visit Narrative* MRI/CT (Routine) - Closed Specialty Diagnoses / Procedures [facility] Referred To Contact MR IMAGING Diagnoses Essential tremor Dyskinesia, tardive Procedures MRI BRAIN WO IVCON MRI BRAIN BRAIN STEM W/O CONTRAST MATERIAL Leyla Murphy MD [address] [place] [address] Phone: tel: fax: [place] [id number] Referral ID Status Reason Start Date Expiration Date V isits Requested Visits Authorized [id number] Closed Auto-Generate d Referral 03/23/2025 05/22/2025 1 1 [facility] Summary Purpose Family History No Family History Records Found Relationship Condition Age at Onset Recorded Date/T abilio Unknown Family History?Heart Disease Unknown June 03, 2016 3:43am Family History?No pe rtinent history Unknown November 18, 2014 9:49pm Family History?No pe rtinent history Unknown June 03, 2016 3:43am Relationship Condition Age at Onset Recorded Date/T abilio father Cardiac disease Unknown mother Anxiety and depression Unknown Suicide and self-inflicted injury Unknown Relationship Condition Age at Onset Recorded Date/T abilio father Cardiac disease Unknown Myocardial infarction Unknown mother Anxiety and depression Unknown Suicide and self-inflicted injury Unknown Advance Directives No Advanced Directives Records Found Advance Directive Response Recorded Date/ Time Advance Directives Yes May 18 7:27pm Living Will Yes September 28 8:21pm Power of Nail Maker Yes September 28, 2023 8:21pm Name of Medical Power of Nail Maker BEATRICE PENA September 28, 2023 8:21pm Advance Directive Response Recorded Date/ Time Name of Medical Power of Nail Maker Song yeboah September 28, 2023 10:25pm Advance Directives Yes May 18 7:27pm Living Will Yes September 28 10:25pm Power of Nail Maker Yes September 28, 2023 10:25pm Advance Directive Response Recorded Date/ Time Name of Medical Power of Nail Maker Song yeboah September 28, 2023 10:25pm Name of Medical Power of Nail Maker jose Naqvi October 04, 2023 1:28pm Name of Medical Power of Nail Maker spouse October 07, 2023 1:12pm Advance Directives Yes May 18 7:27pm Living Will Yes October 07 1:12pm Power of Nail Maker Yes October 07, 2023 1:12pm Advance Directive Response Recorded Date/ Time Name of Medical Power of Nail Maker Song yeboah September 28, 2023 10:25pm Name of Medical Power of Nail Maker jose Naqviband October 04, 2023 1:28pm Name of Medical Power of Nail Maker spouse October 07, 2023 3:14pm Advance Directives Yes May 18 7:27pm Living Will Yes October 07, 023 3:14pm Power of Nail Maker Yes October 07, 2023 3:14pm Advance Directive Response Recorded Date/ Time Name of Medical Power of Nail Maker Song Viki yeboah September 28, 2023 10:25pm Name of Medical Power of Nail Maker jose Naqviband October 04, 2023 1:28pm Name of Medical Power of Nail Maker spouse October 07, 2023 3:14pm Name of Medical Power of Nail Maker Song Ortizerick December 08, 2023 3:46pm Advance Directives Yes May 18 7:27pm Living Will Yes December 08 3:46pm Power of Nail Maker Yes December 08, 2023 3:46pm Advance Directive Response Recorded Date/ Time Name of Medical Power of Nail Maker Songdhruv Ortizerick December 08, 2023 4:46pm Advance Directives Yes May 18 8:27pm Living Will No February 19, 2024 4:09pm Power of Nail Maker No February 18 4:09pm Advance Directive Response Recorded Date/ Time Name of Medical Power of Nail Maker Songdhruv Bronsonkatelynn December 08, 2023 4:46pm Advance Directives Yes May 18 8:27pm Living Will No February 21, 2024 3:03pm Power of Nail Maker No February 20 3:03pm Advance Directive Response Recorded Date/ Time Name of Medical Power of Nail Maker Songdhruv Ortizerick December 08, 2023 4:46pm Name of Medical Power of Nail Maker Song Ortiztamikanatalia l February 21, 2024 10:15pm Advance Directives Yes May 18 8:27pm Living Will Yes February 21, 2024 10:15pm Power of Nail Maker Yes February 20 10:15pm Advance Directive Response Recorded Date/ Time Name of Medical Power of Nail Maker Song Ramírez December 08, 2023 4:46pm Name of Medical Power of Nail Maker Song yeboah February 21, 2024 10:15pm Name of Medical Power of Nail Maker eris Cuello March 08, 2024 4:39pm Advance Directives Yes May 18 8:27pm Living Will Yes March 08, 2024 4:39pm Power of Nail Maker Yes March 08 4:39pm Advance Directive Response Recorded Date/ Time Living Will Yes July 03 7:58pm Do you have a Healthcare Power of Nail Maker? Yes July 03, 2024 7:58pm Advance Directives Yes October 2:46pm Living Will Yes September 09 2:39pm Do you have a Healthcare Power of Nail Maker? Yes September 09, 2024 2:39pm Living Will No November 18 3:39pm Do you have a Healthcare Power of Nail Maker? No November 18, 2024 3:39pm Living Will No March 10, 2025 11:55am Do you have a Healthcare Power of Nail Maker? No March 10, 2025 11:55am Advance Directive Response Recorded Date/ Time Living Will Yes July 03 7:58pm Do you have a Healthcare Power of Nail Maker? Yes July 03, 2024 7:58pm Advance Directives Yes October 2:46pm Living Will No March 10, 2025 11:55am Do you have a Healthcare Power of Nail Maker? No March 10, 2025 11:55am Advance Directive Response Recorded Date/ Time Living Will Yes July 03 7:58pm Do you have a Healthcare Power of Nail Maker? Yes July 03, 2024 7:58pm Living Will No March 10, 2025 11:55am Do you have a Healthcare Power of Nail Maker? No March 10, 2025 11:55am Do you have a Healthcare Power of Nail Maker? Yes April 19, 2025 3:35am Advance Directives Yes October 2:46pm Advance Directive Response Recorded Date/ Time Living Will Yes July 03 7:58pm Do you have a Healthcare Power of Nail Maker? Yes July 03, 2024 7:58pm Living Will No March 10, 2025 11:55am Do you have a Healthcare Power of Nail Maker? No March 10, 2025 11:55am Do you have a Healthcare Power of Nail Maker? Yes April 19, 2025 1:19pm Advance Directives Yes October 2:46pm Reason for Referral Specialty Diagnoses / Procedures Referred By Contac t Referred To Contact Diagnoses Tremor of left hand Essential tremor Procedures PROVIDER ORDERED FOLLOW UP OFFICE/OUTPATIENT NEW HIGH MDM 60-74 MINUTES Sherif Ramirez MD [address] [place] [id number] Referral ID Status Reason Start Date Expiration Date Visits Requested Visits Authorized [id number] Pending Review PCP Requested Referral 3 01/18/2024 1 1 Specialty Diagnoses / Procedures Referred By Contac t Referred To Contact [facility] Diagnoses Tremor of left hand Essential tremor Procedures CONSULT TO FISCAL OFFICER OCCUPATIONAL THERAPY EVAL HIGH COMPLEX 60 MINS Sherif Ramirez MD [address] [place] [id number] [facility] [place] [address] Referral ID Status Reason Start Date Expiration Date Visits Requested Visits Authorized [id number] Pending Review Auto-Generat ed Referral 3 10/19/2024 1 1 Specialty Diagnoses / Procedures Referred By Contac t Referred To Contact Diagnoses Tremor of left hand Procedures PROVIDER ORDERED FOLLOW UP OFFICE/OUTPATIENT [facility] 60-74 MINUTES Sherif Ramirez MD [address] [place] [address] Referral ID Status Reason Start Date Expiration Date Visits Requested Visits Authorized [id number] Authorized PCP Requested Referral 06/23/2022 06/23/2023 1 1 Specialty Diagnoses / Procedures Referred By Contac t Referred To Contact Neurology Diagnoses Tremor of left hand Procedures CONSULT TO NEUROLOGY OFFICE/OUTPATIENT NEW HIGH MDM 60-74 MINUTES Ghazala Gusman MD [address] [place] [address] Referral ID Status Reason Start Date Expiration Date Visits Requested Visits Authorized [id number] Authorized PCP Requested Referral 06/04/2022 06/04/2023 1 1 Chief Complaint and Reason for Visit Chief Complaint CVA Chief Complaint SUSPECTED CVA WITH K NOWN PFO SUSPECTED CVA WITH KNOWN PFO MRI PROGRAMMING in MRI SUSPECTED CVA WITH KNOWN PFO SUSPECTED CVA WITH KNOWN PFO Reason for Visit Cerebrovascular dise ase CVA (cerebral vascular accident) AV node dysfunction Ischemic cardiomyopathy Presence of biventricular implantable cardioverter-defibrillator Chief Complaint SUSPECTED CVA WITH K NOWN PFO SUSPECTED CVA WITH KNOWN PFO MRI PROGRAMMING in MRI SUSPECTED CVA WITH KNOWN PFO SUSPECTED CVA WITH KNOWN PFO SUSPECTED CVA WITH KNOWN PFO STROKE ALERT SPASTICITY VS SEIZURE, LOW SUSP CVA Reason for Visit Cerebrovascular dise ase CVA (cerebral vascular accident) AV node dysfunction Ischemic cardiomyopathy Presence of biventricular implantable cardioverter-defibrillator Anxiety CVA (cerebral vascular accident) Debility Depression Diabetes mellitus GERD (gastroesophageal reflux disease) Muscle spasm Overactive bladder Transient ischemic attack Vitamin D deficiency HLD (hyperlipidemia) HTN (hypertension) CVA (cerebral vascular accident) Chief Complaint SUSPECTED CVA WITH K NOWN PFO SUSPECTED CVA WITH KNOWN PFO MRI PROGRAMMING in MRI SUSPECTED CVA WITH KNOWN PFO SUSPECTED CVA WITH KNOWN PFO SUSPECTED CVA WITH KNOWN PFO STROKE ALERT SPASTICITY VS SEIZURE, LOW SUSP CVA SPASTICITY VS SEIZURE, LOW SUSP CVA SPASTICITY VS SEIZURE, LOW SUSP CVA SPASTICITY VS SEIZURE, LOW SUSP CVA SPASTICITY VS SEIZURE, LOW SUSP CVA Reason for Visit Cerebrovascular dise ase AV node dysfunction Ischemic cardiomyopathy Presence of biventricular implantable cardioverter-defibrillator Anxiety Debility Depression Diabetes mellitus GERD (gastroesophageal reflux disease) Muscle spasm Overactive bladder Transient ischemic attack Vitamin D deficiency HLD (hyperlipidemia) HTN (hypertension) Ischemic cardiomyopathy Transient ischemic attack PFO (patent foramen ovale) Chief Complaint SUSPECTED CVA WITH K NOWN PFO SUSPECTED CVA WITH KNOWN PFO MRI PROGRAMMING in MRI Pacer Check Remote SUSPECTED CVA WITH KNOWN PFO SUSPECTED CVA WITH KNOWN PFO SUSPECTED CVA WITH KNOWN PFO STROKE ALERT SPASTICITY VS SEIZURE, LOW SUSP CVA SPASTICITY VS SEIZURE, LOW SUSP CVA SPASTICITY VS SEIZURE, LOW SUSP CVA SPASTICITY VS SEIZURE, LOW SUSP CVA SPASTICITY VS SEIZURE, LOW SUSP CVA SPASTICITY VS SEIZURE, LOW SUSP CVA FALL Reason for Visit Cerebrovascular dise ase AV node dysfunction Ischemic cardiomyopathy Presence of biventricular implantable cardioverter-defibrillator Anxiety Debility Depression Diabetes mellitus GERD (gastroesophageal reflux disease) Muscle spasm Overactive bladder Vitamin D deficiency HLD (hyperlipidemia) HTN (hypertension) Ischemic cardiomyopathy PFO (patent foramen ovale) Chief Complaint FALL ABD PAIN Chief Complaint FALL ABD PAIN COLITIS Colitis Reason for Visit Colitis Gastrointestinal bleeding, lower Chief Complaint FALL ABD PAIN COLITIS Colitis Colitis Colitis Colitis Colitis Colitis Colitis Colitis Colitis Colitis Colitis Colitis Colitis Colitis Colitis Reason for Visit Colitis Gastrointestinal bleeding, lower Chief Complaint FALL ABD PAIN COLITIS Colitis AM EKG Colitis Colitis Colitis Colitis Colitis Colitis Colitis Colitis Colitis Colitis Colitis Colitis Colitis Colitis COLITIS Reason for Visit Colitis CVA (cerebral vascular accident) Gastrointestinal bleeding, lower Acute kidney injury Anxiety Clostridium difficile colitis Debility Depression Diabetes mellitus GERD (gastroesophageal reflux disease) Heart failure with reduced ejection fraction Insomnia Leg cramp Muscle spasm Overactive bladder Vitamin D deficiency HLD (hyperlipidemia) Colitis CVA (cerebral vascular accident) Gastrointestinal bleeding, lower Chief Complaint Admit Date LOW BACK PAIN. RX HERE November 14 12:00pm ABD PAIN November 18, 2024 2:19pm Abdominal pain November 23, 2024 1: 56pm 3 M FU/ S/P 11/02 ER November 28, 2024 1 :48pm Ongoing issues December 12, 2024 1 2:53pm DISCUSS US RESULTS and 2 M FU December 192024 2:48pm CAROTID STENOSIS December 22, 2024 9 :56am 6 M FU January 18, 2025 1:19pm 6 MO - LABS (DOING 1 DAY PRIOR) January 11:00am 6 MO - LABS (DOING 1 DAY PRIOR) January 1:02pm Pacer Check Remote January 29, 2025 12: 20am PELVIC PAIN (SEE US) ([facility]MS GASTRO) February 13, 2025 9:03am blood in stool February 14, 2025 8:2 6am Fall March 10, 2025 11: 27am Reason for Visit Admit Date Chronic abdominal pain November 23, 2024 1:56pm Ischemic cardiomyopathy November 28 1:48pm Presence of biventricular im plantable cardioverter-defibrillator November 28, 2024 1:48pm Syncope and collapse November 28, 2024 1 :48pm Abdominal pain December 12, 2024 1 2:53pm Constipation December 12, 2024 1 2:53pm Abdominal pain December 19, 2024 2 :48pm Pelvic pain December 19, 2024 2 :48pm Occlusion of superior mesenteric artery December 19, 2024 2:48pm Ischemic cardiomyopathy January 18 2 025 1:19pm Presence of biventricular im plantable cardioverter-defibrillator January 18, 2025 1:19pm Anemia January 23, 2025 1:02 pm Abdominal pain February 13, 2025 9:0 3am Pelvic pain February 13, 2025 9:0 3am Chronic constipation February 13, 2025 9: 03am Abdominal pain February 14, 2025 8:2 6am Blood in stool February 14, 2025 8:2 6am Anemia February 14, 2025 8:2 6am Chronic constipation February 14, 2025 8: 26am Chief Complaint Admit Date 3 M FU/ S/P 11/02 ER November 28, 2024 1 :48pm Ongoing issues December 12, 2024 1 2:53pm DISCUSS US RESULTS and 2 M FU December 192024 2:48pm CAROTID STENOSIS December 22, 2024 9 :56am 6 M FU January 18, 2025 1:19pm 6 MO - LABS (DOING 1 DAY PRIOR) January 11:00am 6 MO - LABS (DOING 1 DAY PRIOR) January 1:02pm Pacer Check Remote January 29, 2025 12: 20am PELVIC PAIN (SEE US) (BMS GASTRO) February 13, 2025 9:03am blood in stool February 14, 2025 8:2 6am Fall March 10, 2025 11: 27am Reason for Visit Admit Date Ischemic cardiomyopathy November 28 1:48pm Presence of biventricular im plantable cardioverter-defibrillator November 28, 2024 1:48pm Syncope and collapse November 28, 2024 1 :48pm Abdominal pain December 12, 2024 1 2:53pm Constipation December 12, 2024 1 2:53pm Abdominal pain December 19, 2024 2 :48pm Pelvic pain December 19, 2024 2 :48pm Occlusion of superior mesenteric artery December 19, 2024 2:48pm Ischemic cardiomyopathy January 18, 2 025 1:19pm Presence of biventricular im plantable cardioverter-defibrillator January 18, 2025 1:19pm Anemia January 23, 2025 1:02 pm Abdominal pain February 13, 2025 9:0 3am Pelvic pain February 13, 2025 9:0 3am Chronic constipation February 13, 2025 9: 03am Abdominal pain February 14, 2025 8:2 6am Blood in stool February 14, 2025 8:2 6am Anemia February 14, 2025 8:2 6am Chronic constipation February 14, 2025 8: 26am Chief Complaint Admit Date CAROTID STENOSIS December 22, 2024 9 :56am 6 M FU January 18, 2025 1:19pm 6 MO - LABS (DOING 1 DAY PRIOR) January 11:00am 6 MO - LABS (DOING 1 DAY PRIOR) January 1:02pm Pacer Check Remote January 29, 2025 12: 20am PELVIC PAIN (SEE US) (BMS GASTRO) February 13, 2025 9:03am blood in stool February 14, 2025 8:2 6am Fall March 10, 2025 11: 27am WEAKNESS April 19, 2025 3:34a m Reason for Visit Admit Date Ischemic cardiomyopathy January 18, 2 025 1:19pm Presence of biventricular im plantable cardioverter-defibrillator January 18, 2025 1:19pm Anemia January 23, 2025 1:02 pm Abdominal pain February 13, 2025 9:0 3am Pelvic pain February 13, 2025 9:0 3am Chronic constipation February 13, 2025 9: 03am Abdominal pain February 14, 2025 8:2 6am Blood in stool February 14, 2025 8:2 6am Anemia February 14, 2025 8:2 6am Chronic constipation February 14, 2025 8: 26am Chief Complaint Admit Date CAROTID STENOSIS December 22, 2024 9 :56am 6 M FU January 18, 2025 1:19pm 6 MO - LABS (DOING 1 DAY PRIOR) January 11:00am 6 MO - LABS (DOING 1 DAY PRIOR) January 1:02pm Pacer Check Remote January 29, 2025 12: 20am PELVIC PAIN (SEE US) (BMS GASTRO) February 13, 2025 9:03am blood in stool February 14, 2025 8:2 6am Fall March 10, 2025 11: 27am ACUTE ON CHRONIC DEBILITY April 19, 2025 11:26am ACUTE ON CHRONIC DEBILITY April 20, 2025 2:49pm Reason for Visit Admit Date Ischemic cardiomyopathy January 18 1:19pm Presence of biventricular im plantable cardioverter-defibrillator January 18, 2025 1:19pm Anemia January 23, 2025 1:02 pm Abdominal pain February 13, 2025 9:0 3am Pelvic pain February 13, 2025 9:0 3am Chronic constipation February 13, 2025 9: 03am Abdominal pain February 14, 2025 8:2 6am Blood in stool February 14, 2025 8:2 6am Anemia February 14, 2025 8:2 6am Chronic constipation February 14, 2025 8: 26am Generalized weakness April 19, 2025 11:2 6am Additional Source Comments INFORMATION SOURCE (unrecogn ized section and content) DATE CREATED AUTHOR 01/17/2020 [facility] DATE CREATED AUTHOR AUTHOR'S ORGANIZ ATION 04/10/2020 [facility] DATE CREATED AUTHOR AUTHOR'S ORGANIZ ATION 05/21/2024 [facility] ([place]) DATE CREATED AUTHOR AUTHOR'S ORGANIZ ATION 01/25/2025 [facility] DATE CREATED AUTHOR AUTHOR'S ORGANIZ ATION 03/03/2025 [facility] DATE CREATED AUTHOR AUTHOR'S ORGANIZ ATION 03/12/2025 [facility] DATE CREATED AUTHOR AUTHOR'S ORGANIZ ATION 04/04/2025 [facility] DATE CREATED AUTHOR AUTHOR'S ORGANIZ ATION 04/24/2025 [facility] DATE CREATED AUTHOR AUTHOR'S ORGANIZ ATION 04/24/2025 [facility] (unrecognized sect ion and content) Team Status: Active Member Role Status Dates Dr. Marci Lopez DO Primary Care Provider Ac tive Team Status: Inactive Member Role Status Dates Dr. Marci Lopez DO Primary Care Provider Ac tive Start: November 28, 2024 End: November 28, 2024 Dr. Marci Lopez DO Referring Provider Activ e Start: November 28, 2024 End: November 28, 2024 Dr. Adrienne Christine MD Attending Provider Active Start: November 28, 2024 End: November 28, 2024 Team Status: Inactive Member Role Status Dates Dr. Marci Lopez DO Primary Care Provider Ac tive Start: December 12, 2024 End: December 12, 2024 Dr. Marci Lopez DO Referring Provider Activ e Start: December 12, 2024 End: December 12, 2024 AMRIK Sanford Attending Provider Active Start: December 12, 2024 End: December 12, 2024 Team Status: Inactive Member Role Status Dates Dr. Marci Lopez DO Primary Care Provider Ac tive Start: December 15, 2024 End: December 15, 2024 AMRIK Sanford Attending Provider Active Start: December 15, 2024 End: December 15, 2024 AMRIK Sanford Referring Provider Active Start: December 15, 2024 End: December 15, 2024 Team Status: Inactive Member Role Status Dates Dr. Marci Lopez DO Primary Care Provider Ac tive Start: December 19, 2024 End: December 19, 2024 Dr. Marci Lopez DO Referring Provider Activ e Start: December 19, 2024 End: December 19, 2024 AMRIK Craig Attending Provider Active Star t: December 19, 2024 End: December 19, 2024 Team Status: Inactive Member Role Status Dates Dr. Marci Lopez DO Primary Care Provider Ac tive Start: December 22, 2024 End: December 22, 2024 Dr. Marci Lopez DO Attending Provider Activ e Start: December 22, 2024 End: December 22, 2024 Dr. Marci Lopez DO Referring Provider Activ e Start: December 22, 2024 End: December 22, 2024 Team Status: Inactive Member Role Status Dates Dr. Marci Lopez DO Primary Care Provider Ac tive Start: January 18, 2025 End: January 18, 2025 Dr. Marci Lopez DO Referring Provider Activ e Start: January 18, 2025 End: January 18, 2025 Kaykay ROWLEY, PA Attending Provider Active Start: January 18, 2025 End: January 18, 2025 Team Status: Active Member Role Status Dates Dr. Marci Lopez DO Primary Care Provider Ac tive Start: January 22, 2025 Dr. Luigi Tinoco MD Attending Provider Active Start: January 22, 2025 Dr. Luigi Tinoco MD Referring Provider Active Start: January 22, 2025 Team Status: Inactive Member Role Status Dates Dr. Marci Lopez DO Primary Care Provider Ac tive Start: January 23, 2025 End: January 23, 2025 Dr. Marci Lopez DO Referring Provider Activ e Start: January 23, 2025 End: January 23, 2025 Dr. Luigi Tinoco MD Attending Provider Active Start: January 23, 2025 End: January 23, 2025 Team Status: Inactive Member Role Status Dates Dr. Marci Lopez DO Primary Care Provider Ac tive Start: January 29, 2025 End: January 29, 2025 Dr. Danish Tavarez MD Attending Provider Active S tart: January 29, 2025 End: January 29, 2025 Dr. Danish Tavarez MD Referring Provider Active S tart: January 29, 2025 End: January 29, 2025 Team Status: Inactive Member Role Status Dates Dr. Marci Lopez , DO Primary Care Provider Ac tive Start: February 13, 2025 End: February 13, 2025 Dr. Marci Lopez DO Referring Provider Activ e Start: February 13, 2025 End: February 13, 2025 Mayte Burch NP, [employer] Attending Provider Active Start: February 13, 2025 End: February 13, 2025 Team Status: Inactive Member Role Status Dates Dr. Marci Lopez DO Primary Care Provider Ac tive Start: February 14, 2025 End: February 14, 2025 Dr. Marci Lopez DO Referring Provider Activ e Start: February 14, 2025 End: February 14, 2025 AMRIK Sanford Attending Provider Active Start: February 14, 2025 End: February 14, 2025 Team Status: Inactive Member Role Status Dates Dr. Marci Lopez DO Primary Care Provider Ac tive Start: March 10, 2025 End: March 10, 2025 Dr. Jose Jaime , DO Attending Provider Active Start: March 10, 2025 End: March 10, 2025 Dr. Jose Jaime , Emergency Provider Active Start: March 10, 2025 End: March 10, 2025 Felt Machine Mechanic Relationship Specialty Start Date End Date Jesus Manuel Freitas, DO [address] [place] [address] PCP - General 02/21/15 Felt Machine Mechanic Relationship Specialty Start Date End Date Fortino Jesus Manuel Bairon, DO [address] [place] [address] PCP - General 02/21/15 Felt Machine Mechanic Relationship Specialty Start Date End Date Jesus Manuel Freitas, DO [address] [place] [address] PCP - General 02/21/15 Felt Machine Mechanic Relationship Specialty Start Date End Date Fortino Jesus Manuel Bairon, DO [address] [place] [address] PCP - General 02/21/15 Felt Machine Mechanic Relationship Specialty Start Date End Date Jesus Manuel Freitas, DO [address] [place] [address] PCP - General 02/21/15 Felt Machine Mechanic Relationship Specialty Start Date End Date Jesus Manuel Freitas, DO [address] [place] [address] PCP - General 02/21/15 Kailyn Donald, HEAD MEN'S TENNIS COACH.CAREER DEVELOPMENT SPECIALIST [address] [place] [address] Specialty Intellectual Property Lawyer Neurology 09/09/22 Felt Machine Mechanic Relationship Specialty Start Date End Date FortinoJesus Manuel, DO [address] [place] [address] PCP - General 02/21/15 Kailyn Donald, HEAD MEN'S TENNIS COACH.CAREER DEVELOPMENT SPECIALIST [address] [place] [address] Specialty Intellectual Property Lawyer Neurology 09/09/22 Felt Machine Mechanic Relationship Specialty Start Date End Date Jesus Manuel Freitas, DO [address] [place] [address] PCP - General 02/21/15 Kailyn Donald, HEAD MEN'S TENNIS COACH.CAREER DEVELOPMENT SPECIALIST [address] [place] [address] Specialty Intellectual Property Lawyer Neurology 09/09/22 Gissell Hunt, HEAD MEN'S TENNIS COACH.CAREER DEVELOPMENT SPECIALIST [address] [place] [address] Specialty Intellectual Property Lawyer Neurology 12/07/22 Felt Machine Mechanic Relationship Specialty Start Date End Date Jesus Manuel Freitas, DO [address] [place] [address] PCP - General 02/21/15 Kailyn Donald, HEAD MEN'S TENNIS COACH.CAREER DEVELOPMENT SPECIALIST [address] [place] [address] Specialty Intellectual Property Lawyer Neurology 09/09/22 Gissell Hunt, HEAD MEN'S TENNIS COACH.CAREER DEVELOPMENT SPECIALIST [address] [place] [address] Specialty Intellectual Property Lawyer Neurology 12/07/22 Felt Machine Mechanic Relationship Specialty Start Date End Date Jesus Manuel Freitas, DO [address] [place] [address] PCP - General 02/21/15 Kailyn Donald, HEAD MEN'S TENNIS COACH.CAREER DEVELOPMENT SPECIALIST [address] [place] [address] Specialty Intellectual Property Lawyer Neurology 09/09/22 Gissell Hunt, HEAD MEN'S TENNIS COACH.CAREER DEVELOPMENT SPECIALIST [address] [place] [address] Specialty Intellectual Property Lawyer Neurology 12/07/22 Felt Machine Mechanic Relationship Specialty Start Date End Date Jesus Manuel Freitas DO [address] [place] [address] PCP - General 02/21/15 Kailyn Donald, HEAD MEN'S TENNIS COACH.CAREER DEVELOPMENT SPECIALIST [address] [place] [address] Specialty Intellectual Property Lawyer Neurology 09/09/22 Gissell Hunt, HEAD MEN'S TENNIS COACH.CAREER DEVELOPMENT SPECIALIST [address] [place] [address] Specialty Intellectual Property Lawyer Neurology 12/07/22 Felt Machine Mechanic Relationship Specialty Start Date End Date Jesus Manuel Freitas DO [address] [place] [address] PCP - General 02/21/15 Kailyn Donald, HEAD MEN'S TENNIS COACH.CAREER DEVELOPMENT SPECIALIST [address] [place] [address] Specialty Intellectual Property Lawyer Neurology 09/09/22 Gissell Hunt, HEAD MEN'S TENNIS COACH.CAREER DEVELOPMENT SPECIALIST [address] [place] [address] Specialty Intellectual Property Lawyer Neurology 12/07/22 Felt Machine Mechanic Relationship Specialty Start Date End Date Jesus Manuel Freitas DO [address] [place] [address] PCP - General 02/21/15 Kailyn Donald, HEAD MEN'S TENNIS COACH.CAREER DEVELOPMENT SPECIALIST [address] [place] [address] Specialty Intellectual Property Lawyer Neurology 09/09/22 Gissell Hunt, HEAD MEN'S TENNIS COACH.CAREER DEVELOPMENT SPECIALIST [address] [place] [address] Specialty Intellectual Property Lawyer Neurology 12/07/22 Felt Machine Mechanic Relationship Specialty Start Date End Date Jesus Manuel Freitas, DO [address] [place] [address] PCP - General 02/21/15 Kailyn Donald, HEAD MEN'S TENNIS COACH.CAREER DEVELOPMENT SPECIALIST [address] [place] [address] Specialty Intellectual Property Lawyer Neurology 09/09/22 Gissell Hunt, HEAD MEN'S TENNIS COACH.CAREER DEVELOPMENT SPECIALIST [address] [place] [address] Specialty Intellectual Property Lawyer Neurology 12/07/22 Team Status: Active Member Role Status Dates Dr. Cathy Cherry , DO Family Provider Active Dr. Adrienne Byers , DO Primary Care Provider Active Team Status: Active Member Role Status Dates Dr. Uday Orosco , DO Emergency Provider Active Dr. Adrienne Byers , DO Primary Care Provider Active Dr. Tony Corona , DO Admit Provider, Attending Rick root Active Team Status: Active Member Role Status Dates Dr. Adrienne Byers DO Primary Care Provider Active Dr. Alexsandra Vela MD Attending Provider Activ e Team Status: Active Member Role Status Dates Dr. Uday Orosco , DO Emergency Provider Active Dr. Adrienne Byers , DO Primary Care Provider Active Dr. Tony Corona , DO Admit Provider, Other Provid er Active Dr. Ben Johnson , DO Attending Provider, Other Pro vider Active Team Status: Active Member Role Status Dates Dr. Adrienne Byers , DO Primary Care Provider Active Dr. Jose Turk MD Attending Provider Active Team Status: Inactive Member Role Status Dates Dr. Adrienne Byers , DO Primary Care Provider, Referrin g Provider Active Brisa Jennings Attending Provider Active Team Status: Inactive Member Role Status Dates Dr. Uday Orosco , DO Emergency Provider Active Dr. Adrienne Byers , DO Primary Care Provider Active Dr. Tony Corona , DO Admit Provider, Other Provid er Active Dr. Ben Johnson , DO Attending Provider Active Team Status: Active Member Role Status Dates Dr. Adrienne Byers , DO Primary Care Provider Active Dr. David Best , DO Emergency Provider Active Dr. Jaci Greco MD Attending Provider Active Team Status: Inactive Member Role Status Dates Dr. Adrienne Byers , DO Primary Care Provider Active Dr. Alonso Marte MD Admit Provider, Attending Provid er Active Team Status: Active Member Role Status Dates Dr. Adrienne Byers , DO Primary Care Provider Active Dr. David Best , DO Emergency Provider Active Dr. Jaci Greco MD Admit Provider, Attending Prov ider Active Team Status: Active Member Role Status Dates Dr. Adrienne Byers , DO Primary Care Provider Active Dr. Alexsandra Vela MD Attending Provider Activ e Dr. Tony Corona , DO Referring Provider Active Team Status: Active Member Role Status Dates Dr. Adrienne Byers , DO Primary Care Provider Active Dr. David Best DO Emergency Provider Active Dr. Jaci Greco MD Admit Provider, Other Provider Active Dr. Tony Mayer MD Attending Provider, Other Provid er Active Team Status: Active Member Role Status Dates Dr. Adrienne Byers DO Primary Care Provider Active Dr. David Best DO Emergency Provider Active Dr. Jaci Greco MD Admit Provider, Other Provider Active Dr. Camacho Aguilar MD Attending Provider, Other Provider Active Dr. Tony Mayer MD Other Provider Active Team Status: Inactive Member Role Status Dates Dr. Adrienne Byers DO Primary Care Provider Active Dr. David Best DO Emergency Provider Active Dr. Jaci Greco MD Admit Provider, Other Provider Active Dr. Camacho Aguilar MD Attending Provider Active Dr. Tony Mayer MD Other Provider Active Felt Machine Mechanic Relationship Specialty Start Date End Date Jesus Manuel Freitas, [address] [place] [address] PCP - General 02/21/15 Kailyn Donald, HEAD MEN'S TENNIS COACH.CAREER DEVELOPMENT SPECIALIST [address] [place] [address] Specialty Intellectual Property Lawyer Neurology 09/09/22 Gissell Hunt, HEAD MEN'S TENNIS COACH.CAREER DEVELOPMENT SPECIALIST [address] [place] [address] Specialty Intellectual Property Lawyer Neurology 12/07/22 Felt Machine Mechanic Relationship Specialty Start Date End Date Jesus Manuel Freitas, [address] [place] [address] PCP - General 02/21/15 Kailyn Donald, HEAD MEN'S TENNIS COACH.CAREER DEVELOPMENT SPECIALIST [address] [place] [address] Specialty Intellectual Property Lawyer Neurology 09/09/22 Gissell Hunt, HEAD MEN'S TENNIS COACH.CAREER DEVELOPMENT SPECIALIST [address] [place] [address] Specialty Intellectual Property Lawyer Neurology 12/07/22 Team Status: Active Member Role Status Dates Dr. Adrienne Byers , DO Primary Care Provider Active Dr. Jose Turk MD Attending Provider Active Dr. Tony Corona , DO Referring Provider Active Team Status: Inactive Member Role Status Dates Dr. Adrienne Byers , DO Primary Care Provider Active Dr. Danish Tavarez MD Attending Provider Active Team Status: Inactive Member Role Status Dates Dr. Adrienen Byers , DO Primary Care Provider Active Dr. Uday Orosco , DO Emergency Provider Active Team Status: Inactive Member Role Status Dates Dr. Adrienne Byers , DO Primary Care Provider Active Dr. Uday Orosco , DO Attending Provider, Emergency Provider Active Team Status: Inactive Member Role Status Dates Dr. Adrienne Byers , DO Primary Care Provider Active Dr. Bryan Levin , DO Emergency Provider Active Team Status: Active Member Role Status Dates Dr. Adrienne Byers , DO Primary Care Provider Active Dr. Jose Jaime , DO Emergency Provider Active Dr. Ben Johnson , DO Admit Provider, Attending Provider, Other Provider Active Team Status: Active Member Role Status Dates Dr. Adrienne Byers , DO Primary Care Provider Active Dr. Jose Jaime , DO Emergency Provider Active Dr. Ben Johnson , DO Admit Provider, Attending Pro vider Active Team Status: Active Member Role Status Dates Dr. Adrienne Byers , DO Primary Care Provider Active Dr. Jose Jaime , DO Emergency Provider Active Dr. Ben Johnson , DO Admit Provider, Other Provide r Active Dr. Heike Horta MD Attending Provider, Other Prov ider Active Team Status: Active Member Role Status Dates Dr. Adrienne Byers , DO Primary Care Provider Active Dr. Shan Lockett , DO Attending Provider Active Team Status: Active Member Role Status Dates Dr. Adrienne Byers , DO Primary Care Provider Active Dr. Jose Jaime , DO Emergency Provider Active Dr. Ben Johnson , DO Admit Provider, Other Provide r Active Dr. Heike Horta MD Other Provider Active Dr. Shan Lockett , DO Attending Provider Active Team Status: Active Member Role Status Dates Dr. Adrienne Byers , DO Primary Care Provider Active Dr. Jose Jaime , DO Emergency Provider Active Dr. Ben Johnson , DO Admit Provider, Other Provide r Active Dr. Yoandy Thakkar MD Other Provider Active Dr. Ganesh Kiran MD Attending Provider, Other Provi torsten Active Dr. Heike Horta MD Other Provider Active Team Status: Active Member Role Status Dates Dr. Adrienne Byers , DO Primary Care Provider Active Dr. Jose Jaime , DO Emergency Provider Active Dr. Ben Johnson , DO Admit Provider, Other Provide r Active Dr. Yoandy Thakkar MD Other Provider Active Dr. Ganesh Kiran MD Other Provider Active Dr. Heike Horta MD Other Provider Active Dr. Shan Lockett , DO Attending Provider Active Team Status: Inactive Member Role Status Dates Dr. Adrienne Byers , DO Primary Care Provider Active Dr. Bryan Levin , DO Attending Provider, Emergency P samaria Active Team Status: Inactive Member Role Status Dates Dr. Adrienne Byers , DO Primary Care Provider Active Dr. Jose Jaime , DO Emergency Provider Active Dr. Ben Johnson , DO Admit Provider, Other Provide r Active Dr. Yoandy Thakkar MD Other Provider Active Dr. Ganesh Kiran MD Attending Provider Active Dr. Heike Horta MD Other Provider Active Team Status: Active Member Role Status Dates Dr. Adrienne Byers , DO Primary Care Provider Active Dr. Shan Lockett , DO Attending Provider Active Dr. Heike Horta MD Referring Provider Active Team Status: Active Member Role Status Dates Dr. Adrienne Byers , DO Primary Care Provider Active Dr. Jose Jaime , DO Emergency Provider Active Dr. Ben Johnson , DO Admit Provider, Other Provide r Active Dr. Heike Horta MD Referring Provider, Other Prov ider Active Dr. Shan Lockett , DO Attending Provider Active Team Status: Active Member Role Status Dates Dr. Adrienne Byers , DO Primary Care Provider Active Dr. Jose Jaime , DO Emergency Provider Active Dr. Ben Johnson , DO Admit Provider, Other Provide r Active Dr. Yoandy Thakkar MD Other Provider Active Dr. Ganesh Kiran MD Other Provider Active Dr. Heike Horta MD Referring Provider, Other Prov ider Active Dr. Shan Lockett , DO Attending Provider Active Team Status: Active Member Role Status Dates Dr. Adrienne Byers , DO Primary Care Provider Active Dr. Adrienne Christine MD Attending Provider Active Dr. Ben Johnson , DO Referring Provider Active Team Status: Inactive Member Role Status Dates Dr. Adrienne Byers , DO Primary Care Provider Active Dr. Alonso Marte MD Admit Provider, At tending Provider, Referring Provider Active Felt Machine Mechanic Relationship Specialty Start Date End Date Jesus Manuel Freitas DO [address] [place] [id number] PCP - General 02/21/15 Kailyn Donald, HEAD M[employer]ENN[employer] COACH.CAREER DEVELOPMENT SPECIALIST [address] [place] [address] Specialty Intellectual Property Lawyer Neurology 09/09/22 Gissell Hunt, [employer] M[employer] COACH.CAREER DEVELOPMENT SPECIALIST [address] [place] [address] Specialty Intellectual Property Lawyer Neurology 12/07/22 Sherif Ramirez MD [facility] [place] [address] Specialty Intellectual Property Lawyer Neurology 11/10/23 Felt Machine Mechanic Relationship Specialty Start Date End Date Rick Rodas, HEAD M[employer]'S TENNIS COACH - CAREER DEVELOPMENT SPECIALIST [facility] [place] [address] PCP - General Nurse Practitioner 06/16/24 Felt Machine Mechanic Relationship Specialty Start Date End Date Rick Rodas [employer]ENNIS [employer]ACH - [facility] [address] [place] [phone] PCP - General Nurse Practitioner 06/16/24 Felt Machine Mechanic Relationship Specialty Start Date End Date Rick Rodas [employer] - [facility] [address] [place] [address] PCP - General Nurse Practitioner 06/16/24 Felt Machine Mechanic Relationship Specialty Start Date End Date Jesus Manuel Freitas DO [address] [place] [address] PCP - General 02/21/15 Kailyn Donald, HEAD MEN'S TENNIS COACH.CAREER DEVELOPMENT SPECIALIST [address] [place] [address] Specialty Intellectual Property Lawyer Neurology 09/09/22 Gissell Hunt HEAD [employer] COACH.CAREER DEVELOPMENT SPECIALIST [address] [place] [address] Specialty Intellectual Property Lawyer Neurology 12/07/22 Sherif Ramirez MD [address] [place], [place] [id number] Specialty Intellectual Property Lawyer Neurology 11/10/23 Felt Machine Mechanic Relationship Specialty Start Date End Date John Marci [address] [place] [phone] PCP - General Family Medicine 07/20/24 Felt Machine Mechanic Relationship Specialty Start Date End Date Jesus Manuel Freitas DO [address] [place] [address] PCP - General 02/21/15 Kailyn Donald, HEAD MEN'S TENNIS COACH.CAREER DEVELOPMENT SPECIALIST [address] [place] [address] Specialty Intellectual Property Lawyer Neurology 09/09/22 Gissell Hunt, HEAD M[employer]'S TENNIS COACH.CAREER DEVELOPMENT SPECIALIST [address] [place] [address] Specialty Intellectual Property Lawyer Neurology 12/07/22 Sherif Ramirez MD [address] [place] [address] Specialty Intellectual Property Lawyer Neurology 11/10/23 Felt Machine Mechanic Relationship Specialty Start Date End Date Rick Rodas HEAD [employer]ACH - CAREER DEVELOPMENT SPECIALIST [address] [place] [phone] PCP - General Nurse Practitioner 06/16/24 07/19/24 Marci Lopez [address] [place] [phone] PCP - General Family Medicine 07/20/24 Felt Machine Mechanic Relationship Specialty Start Date End Date Marci Lopez [address] [place] [address] PCP - General Family Medicine 07/20/24 Felt Machine Mechanic Relationship Specialty Start Date End Date Marci Lopez [address] [place] [address] PCP - General Family Medicine 07/20/24 Felt Machine Mechanic Relationship Specialty Start Date End Date Jesus Manuel Freitas DO [address] [place], [place] [phone] PCP - General 02/21/15 Kailyn Donald, HEAD MEN'S TENNIS COACH.CAREER DEVELOPMENT SPECIALIST [address] [place], [place] [id number] Specialty Intellectual Property Lawyer Neurology 09/09/22 Gissell Hunt APRN.CAREER DEVELOPMENT SPECIALIST [address] [place], [place] [id number] Specialty Intellectual Property Lawyer Neurology 12/07/22 Sherif Ramirez MD [address] [place], [place] [id number] Specialty Intellectual Property Lawyer Neurology 11/10/23 Felt Machine Mechanic Relationship Specialty Start Date End Date Marci Lopez [address] [place] [address] PCP - General Family Medicine 07/20/24 Felt Machine Mechanic Relationship Specialty Start Date End Date Marci Lopez [address] [place] [address] PCP - General Family Medicine 07/20/24 Felt Machine Mechanic Relationship Specialty Start Date End Date Jesus Manuel Freitas DO [address] [place], [place] [phone] PCP - General 02/21/15 Kailyn Donald, HEAD MEN'S TENNIS COACH.CAREER DEVELOPMENT SPECIALIST [address] [place], [place] [id number] Specialty Intellectual Property Lawyer Neurology 09/09/22 Gissell Hunt APRN.CAREER DEVELOPMENT SPECIALIST [address] [place] [address] Specialty Intellectual Property Lawyer Neurology 12/07/22 Sherif Ramirez MD [address] [place] [address] Specialty Intellectual Property Lawyer Neurology 11/10/23 Felt Machine Mechanic Relationship Specialty Start Date End Date Jesus Manuel Freitas DO [address] [place], [place] [id number] PCP - General 02/21/15 Kailyn Donald, HEAD MEN'S TENNIS COACH.CAREER DEVELOPMENT SPECIALIST [address] [place] [address] Specialty Intellectual Property Lawyer Neurology 09/09/22 Gissell Hunt APRN.CAREER DEVELOPMENT SPECIALIST [address] [place] [address] Specialty Intellectual Property Lawyer Neurology 12/07/22 Sherif Ramirez MD [address] [place] [address] Specialty Intellectual Property Lawyer Neurology 11/10/23 Felt Machine Mechanic Relationship Specialty Start Date End Date John Mraci [facility] [place] [phone] PCP - General Family Medicine 07/20/24 Felt Machine Mechanic Relationship Specialty Start Date End Date Jesus Manuel Freitas DO [address] [place] [address] PCP - General 02/21/15 Kailyn Donald, HEAD MEN'S TENNIS COACH.CAREER DEVELOPMENT SPECIALIST [address] [place] [address] Specialty Intellectual Property Lawyer Neurology 09/09/22 Gissell Hunt APRN.CAREER DEVELOPMENT SPECIALIST [address] [place] [address] Specialty Intellectual Property Lawyer Neurology 12/07/22 Sherif Ramirez MD [address] [place] [address] Specialty Intellectual Property Lawyer Neurology 11/10/23 Felt Machine Mechanic Relationship Specialty Start Date End Date Jesus Manuel Freitas DO [address] [place], [place] [address] PCP - General 02/21/15 Kailyn Donald, HEAD MEN'S TENNIS COACH.CAREER DEVELOPMENT SPECIALIST [address] [place] [address] Specialty Intellectual Property Lawyer Neurology 09/09/22 Gissell Hunt, HEAD MEN'S TENNIS COACH.CAREER DEVELOPMENT SPECIALIST [address] [place] [address] Specialty Intellectual Property Lawyer Neurology 12/07/22 Sherif Ramirez MD [address] [place] [address] Specialty Intellectual Property Lawyer Neurology 11/10/23 Felt Machine Mechanic Relationship Specialty Start Date End Date Jesus Manuel Freitas DO [address] [place] [address] PCP - General 02/21/15 Kailyn Donald, HEAD MEN'S TENNIS COACH.CAREER DEVELOPMENT SPECIALIST [address] [place] [address] Specialty Intellectual Property Lawyer Neurology 09/09/22 Gissell Hunt APRN.CAREER DEVELOPMENT SPECIALIST [address] [place] [address] Specialty Intellectual Property Lawyer Neurology 12/07/22 Sherif Ramirez MD [address] [place] [address] Specialty Intellectual Property Lawyer Neurology 11/10/23 Felt Machine Mechanic Relationship Specialty Start Date End Date Jesus Manuel Freitas DO [address] [place] [address] PCP - General 02/21/15 Kailyn Donald, HEAD MEN'S TENNIS COACH.CAREER DEVELOPMENT SPECIALIST [address] [place] [address] Specialty Intellectual Property Lawyer Neurology 09/09/22 Gissell Hunt HEAD MEN'S TENNIS COACH.CAREER DEVELOPMENT SPECIALIST [address] [place] [address] Specialty Intellectual Property Lawyer Neurology 12/07/22 Sherif Ramirez MD [address] [place] [address] Specialty Intellectual Property Lawyer Neurology 11/10/23 Felt Machine Mechanic Relationship Specialty Start Date End Date Jesus Manuel Freitas DO [address] [place] [address] PCP - General 02/21/15 Kailyn Donald, HEAD MEN'S TENNIS COACH.CAREER DEVELOPMENT SPECIALIST [address] [place] [address] Specialty Intellectual Property Lawyer Neurology 09/09/22 Gissell Hunt HEAD MEN'S TENNIS COACH.CAREER DEVELOPMENT SPECIALIST [address] [place] [address] Specialty Intellectual Property Lawyer Neurology 12/07/22 Sherif Ramirez MD [address] [place] [address] Specialty Intellectual Property Lawyer Neurology 11/10/23 Team Status: Active Member Role Status Dates Dr. Marci Lopez DO Primary Care Provider Ac tive Start: November 14, 2024 Dr. Marci Lopez DO Attending Provider Activ e Start: November 14, 2024 Dr. Marci Lopez DO Referring Provider Activ e Start: November 14, 2024 Team Status: Inactive Member Role Status Dates Dr. Marci Lopez DO Primary Care Provider Ac tive Start: November 18, 2024 End: November 18, 2024 Dr. Jose Jaime DO Attending Provider Active Start: November 18, 2024 End: November 18, 2024 Dr. Jose Jaime DO Emergency Provider Active Start: November 18, 2024 End: November 18, 2024 Team Status: Inactive Member Role Status Dates Dr. Marci Lopez DO Primary Care Provider Ac tive Start: November 23, 2024 End: November 23, 2024 Dr. Marci Lopez DO Referring Provider Activ e Start: November 23, 2024 End: November 23, 2024 [facility] Attending Provider Active Start: November 23, 2024 End: November 23, 2024 Team Status: Inactive Member Role Status Dates Dr. Marci Lopez DO Primary Care Provider Ac tive Start: March 10, 2025 End: March 10, 2025 Dr. Jose Jaime DO Emergency Provider Active Start: March 10, 2025 End: March 10, 2025 Felt Machine Mechanic Relationship Specialty Start Date End Date Jesus Manuel Freitas DO [address] [place] [address] PCP - General 02/21/15 Kailyn Donald, HEAD MEN'S TENNIS COACH.CAREER DEVELOPMENT SPECIALIST [address] [place] [address] Specialty Intellectual Property Lawyer Neurology 09/09/22 Gissell Hunt APRN.CNP [address] [place] [address] Specialty Intellectual Property Lawyer Neurology 12/07/22 Sherif Ramirez MD [address] [place] [address] Specialty Intellectual Property Lawyer Neurology 11/10/23 Team Status: Inactive Member Role Status Dates Dr. Marci Lopez , DO Primary Care Provider Ac tive Start: April 19, 2025 End: April 19, 2025 Dr. Romeo Padron , DO Emergency Provider Active Start: April 19, 2025 End: April 19, 2025 Team Status: Inactive Member Role Status Dates Dr. Marci Lopez , DO Primary Care Provider Ac tive Start: April 19, 2025 End: April 20, 2025 Dr. Romeo Padron , DO Emergency Provider Active Start: April 19, 2025 End: April 20, 2025 Dr. Maximo Orosco , DO Admit Provider Active Start: April 19, 2025 End: April 20, 2025 Dr. Maximo Orosco , DO Attending Provider Active Start: April 19, 2025 End: April 20, 2025 Dr. Maximo Orosco , DO Other Provider Active Start: April 19, 2025 Team Status: Active Member Role Status Dates Dr. Marci Lopez , DO Primary Care Provider Ac tive Start: April 20, 2025 Dr. Romeo Padron , DO Emergency Provider Active Start: April 20, 2025 Dr. Maximo Orosco , DO Admit Provider Active Start: April 20, 2025 Dr. Maximo Orosco , DO Attending Provider Active Start: April 20, 2025 Dr. Maximo Orosco , DO Other Provider Active Start: April 20, 2025 Source Comments (unrecognize d section and content) In the event this informatio n is protected by the [facility] Confidentiality of Alcohol and Drug Abuse Patient Records regulations: The Federal rules restrict any use of the information to criminally investigate or prosecute any alcohol or drug abuse patient.[facility] the event this information is protected by the Federal Confidentiality of Alcohol and Drug Abuse Patient Records regulations: The Federal rules restrict any use of the information to criminally investigate or prosecute any alcohol or drug abuse patient.[facility] HospitalIn the event this information is protected by the Federal Confidentiality of Alcohol and Drug Abuse Patient Records regulations: The Federal rules restrict any use of the information to criminally investigate or prosecute any alcohol or drug abuse patient.[facility]In the event this information is protected by the Federal Confidentiality of Alcohol and Drug Abuse Patient Records regulations: The Federal rules restrict any use of the information to criminally investigate or prosecute any alcohol or drug abuse patient.[facility] HospitalIn the event this information is protected by the Federal Confidentiality of Alcohol and Drug Abuse Patient Records regulations: The Federal rules restrict any use of the information to criminally investigate or prosecute any alcohol or drug abuse patient.[facility] HospitalIn the event this information is protected by the Federal Confidentiality of Alcohol and Drug Abuse Patient Records regulations: The Federal rules restrict any use of the information to criminally investigate or prosecute any alcohol or drug abuse patient.[facility] HospitalIn the event this information is protected by the Federal Confidentiality of Alcohol and Drug Abuse Patient Records regulations: The Federal rules restrict any use of the information to criminally investigate or prosecute any alcohol or drug abuse patient.[facility] HospitalIn the event this information is protected by the Federal Confidentiality of Alcohol and Drug Abuse Patient Records regulations: The Federal rules restrict any use of the information to criminally investigate or prosecute any alcohol or drug abuse patient.[facility] HospitalIn the event this information is protected by the Federal Confidentiality of Alcohol and Drug Abuse Patient Records regulations: The Federal rules restrict any use of the information to criminally investigate or prosecute any alcohol or drug abuse patient.[facility] HospitalIn the event this information is protected by the Federal Confidentiality of Alcohol and Drug Abuse Patient Records regulations: The Federal rules restrict any use of the information to criminally investigate or prosecute any alcohol or drug abuse patient.[facility] HospitalIn the event this information is protected by the Federal Confidentiality of Alcohol and Drug Abuse Patient Records regulations: The Federal rules restrict any use of the information to criminally investigate or prosecute any alcohol or drug abuse patient.[facility] HospitalIn the event this information is protected by the Federal Confidentiality of Alcohol and Drug Abuse Patient Records regulations: The Federal rules restrict any use of the information to criminally investigate or prosecute any alcohol or drug abuse patient.[facility] HospitalIn the event this information is protected by the Federal Confidentiality of Alcohol and Drug Abuse Patient Records regulations: The Federal rules restrict any use of the information to criminally investigate or prosecute any alcohol or drug abuse patient.[facility] HospitalIn the event this information is protected by the Federal Confidentiality of Alcohol and Drug Abuse Patient Records regulations: The Federal rules restrict any use of the information to criminally investigate or prosecute any alcohol or drug abuse patient.[facility] HospitalIn the event this information is protected by the Federal Confidentiality of Alcohol and Drug Abuse Patient Records regulations: The Federal rules restrict any use of the information to criminally investigate or prosecute any alcohol or drug abuse patient.[facility] HospitalIn the event this information is protected by the Federal Confidentiality of Alcohol and Drug Abuse Patient Records regulations: The Federal rules restrict any use of the information to criminally investigate or prosecute any alcohol or drug abuse patient.[facility] HospitalIn the event this information is protected by the Federal Confidentiality of Alcohol and Drug Abuse Patient Records regulations: The Federal rules restrict any use of the information to criminally investigate or prosecute any alcohol or drug abuse patient.[facility] HospitalIn the event this information is protected by the Federal Confidentiality of Alcohol and Drug Abuse Patient Records regulations: The Federal rules restrict any use of the information to criminally investigate or prosecute any alcohol or drug abuse patient.[facility] HospitalIn the event this information is protected by the Federal Confidentiality of Alcohol and Drug Abuse Patient Records regulations: The Federal rules restrict any use of the information to criminally investigate or prosecute any alcohol or drug abuse patient.[facility] HospitalIn the event this information is protected by the Federal Confidentiality of Alcohol and Drug Abuse Patient Records regulations: The Federal rules restrict any use of the information to criminally investigate or prosecute any alcohol or drug abuse patient.[facility] HospitalIn the event this information is protected by the Federal Confidentiality of Alcohol and Drug Abuse Patient Records regulations: The Federal rules restrict any use of the information to criminally investigate or prosecute any alcohol or drug abuse patient.[facility] HospitalIn the event this information is protected by the Federal Confidentiality of Alcohol and Drug Abuse Patient Records regulations: The Federal rules restrict any use of the information to criminally investigate or prosecute any alcohol or drug abuse patient.[facility] HospitalIn the event this information is protected by the Federal Confidentiality of Alcohol and Drug Abuse Patient Records regulations: The Federal rules restrict any use of the information to criminally investigate or prosecute any alcohol or drug abuse patient.[facility] HospitalIn the event this information is protected by the Federal Confidentiality of Alcohol and Drug Abuse Patient Records regulations: The Federal rules restrict any use of the information to criminally investigate or prosecute any alcohol or drug abuse patient.[facility] HospitalIn the event this information is protected by the Federal Confidentiality of Alcohol and Drug Abuse Patient Records regulations: The Federal rules restrict any use of the information to criminally investigate or prosecute any alcohol or drug abuse patient.[facility] HospitalIn the event this information is protected by the Federal Confidentiality of Alcohol and Drug Abuse Patient Records regulations: The Federal rules restrict any use of the information to criminally investigate or prosecute any alcohol or drug abuse patient.[facility]In the event this information is protected by the Federal Confidentiality of Alcohol and Drug Abuse Patient Records regulations: The Federal rules restrict any use of the information to criminally investigate or prosecute any alcohol or drug abuse patient.[facility] HospitalIn the event this information is protected by the Federal Confidentiality of Alcohol and Drug Abuse Patient Records regulations: The Federal rules restrict any use of the information to criminally investigate or prosecute any alcohol or drug abuse patient.[facility] HospitalIn the event this information is protected by the Federal Confidentiality of Alcohol and Drug Abuse Patient Records regulations: The Federal rules restrict any use of the information to criminally investigate or prosecute any alcohol or drug abuse patient.[facility] HospitalIn the event this information is protected by the Federal Confidentiality of Alcohol and Drug Abuse Patient Records regulations: The Federal rules restrict any use of the information to criminally investigate or prosecute any alcohol or drug abuse patient.[facility] HospitalIn the event this information is protected by the Federal Confidentiality of Alcohol and Drug Abuse Patient Records regulations: The Federal rules restrict any use of the information to criminally investigate or prosecute any alcohol or drug abuse patient.[facility] HospitalIn the event this information is protected by the Federal Confidentiality of Alcohol and Drug Abuse Patient Records regulations: The Federal rules restrict any use of the information to criminally investigate or prosecute any alcohol or drug abuse patient.[facility] HospitalIn the event this information is protected by the Federal Confidentiality of Alcohol and Drug Abuse Patient Records regulations: The Federal rules restrict any use of the information to criminally investigate or prosecute any alcohol or drug abuse patient.[facility] HospitalIn the event this information is protected by the Federal Confidentiality of Alcohol and Drug Abuse Patient Records regulations: The Federal rules restrict any use of the information to criminally investigate or prosecute any alcohol or drug abuse patient.[facility] HospitalIn the event this information is protected by the Federal Confidentiality of Alcohol and Drug Abuse Patient Records regulations: The Federal rules restrict any use of the information to criminally investigate or prosecute any alcohol or drug abuse patient.[facility] HospitalIn the event this information is protected by the Federal Confidentiality of Alcohol and Drug Abuse Patient Records regulations: The Federal rules restrict any use of the information to criminally investigate or prosecute any alcohol or drug abuse patient.[facility] HospitalIn the event this information is protected by the Federal Confidentiality of Alcohol and Drug Abuse Patient Records regulations: The Federal rules restrict any use of the information to criminally investigate or prosecute any alcohol or drug abuse patient.[facility] HospitalIn the event this information is protected by the Federal Confidentiality of Alcohol and Drug Abuse Patient Records regulations: The Federal rules restrict any use of the information to criminally investigate or prosecute any alcohol or drug abuse patient.[facility] Reason for Visit (unrecogniz ed section and content) Reason Onset Date Comments Question 02/05/2022 medication Reason Onset Date Comments Refill Request 05/01/2022 Reason Comments Follow Up Reason Comments New Patient tremor of left hand Specialty Diagnoses / Procedures Referred By Oni angel Referred To Contact Neurology Diagnoses Tremor of left hand Procedures CONSULT TO NEUROLOGY OFFICE/OUTPATIENT NEW HIGH MDM 60-74 MINUTES Ghazala Gusman MD [address] [place] [address] Referral ID Status Reason Start Date Expiration Date V isits Requested Visits Authorized [id number] Closed PCP Requested Referral 06/04/2022 06/04/2023 1 1 Reason Comments Established Patient Specialty Diagnoses / Procedures Referred By Contac t Referred To Contact Diagnoses Tremor of left hand Procedures PROVIDER ORDERED FOLLOW UP OFFICE/OUTPATIENT NEW HIGH [facility] 60-74 MINUTES Sherif Ramirez MD [address] [place] [address] Referral ID Status Reason Start Date Expiration Date V isits Requested Visits Authorized [id number] Closed PCP Requested Referral 06/23/2022 06/23/2023 1 1 Reason Comments Medication question Reason Comments Prior Authorization needed for medicatio n Reason Comments Insurance Authorization [place] Reason Comments Med Change Request Reason Comments Established Patient Reason Comments Refill Request Reason Comments Radiology NM Specialty Diagnoses / Procedures Referred By Contac t Referred To Contact MOLECULAR & FUNCTIONAL IMAGING 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, unspecified Parkinsonism type Procedures NM BRAIN TREMOR SPECT/CT RP LOCLZJ YASMANI SPECT W/CT 1 AREA 1 DAY IMAGING Sherif Ramirez MD [address] [id number] Molecular & Functional Imaging [address] [place] [address] Referral ID Status Reason Start Date Expiration Date V isits Requested Visits Authorized [id number] Closed Auto-Generate d Referral 07/01/2023 07/30/2024 1 1 Reason Comments Established Patient Reason Onset Date Comments Other 06/28/2024 [place] Document ation Reason Onset Date Comments Release of Information 07/11/2024 Reason Onset Date Comments Other 07/11/2024 Needs call back from office Reason Onset Date Comments Other 08/04/2024 Reason Onset Date Comments Release of Information 08/05/2024 Specialty Diagnoses / Procedures Referred By Contac t Referred To Contact Radiology / IMAGING Diagnoses Interstitial emphysema PET SCAN/CT INITIAL STAGING SKULL BASE TO MID THIGH J98.2 EMPHYSEMA,INTERSTITIAL ANIRUDH OFFICE SCHEDULED ORDER IN SCANNED DOCS AUTH# [id number] GOOD 08/01/24-09/30/[address] ATTENUATION SKULL BASE MID-THIGH PET CT Kalen Izaguirre MD [address] [facility] [address] [place] [address] [facility] [address] [place] [address] Referral ID Status Reason Start Date Expiration Date Visits Re quested Visits Authorized [id number] Closed 08/01/2024 09/30/2024 1 1 Reason Onset Date Comments Other 10/06/2024 Reason Comments Requesting help with spasticity medicati on. Reason Onset Date Comments Appointment Request 11/16/2024 Reason Onset Date Comments Other 11/24/2024 Discuss Apppoint ment Reason Comments Appointment Time Change: 05/15/20 Reason Onset Date Comments Medication Problem 01/28/2025 Reason Comments Appointment MRI Brain WO IVCON Reason Onset Date Comments SPP Neurology - Treatment Referral 02/28/2025 [employer] Insurance Authorization 02/28/2025 PA Submi ssion Pending Reason Comments New Patient Parkinson's Disease Reason Comments Orders valbenazine (INGREZZ A) 40 mg capsule Reason Onset Date Comments Fall 03/10/2025 Reason Comments Patient Question Reason Onset Date Comments SPP Neurology - Medication Refill 04/23/2025 [place] Care Team (unrecognized sect ion and content) Care Team Personnel Name: LARY WHEAT DO Position: P4 Physician - Primary Care Med Service: Active Provider Member Role: Primary Care Physician Address: Address: [address] [place] [address]- Name: JAC CHRISTENSEN MD Position: P4 Physician - Cardiology Med Service: Active Provider Member Role: Teacher Drama Address: Address: [address] [facility] [address] [facility] [place] [address]- Care Team Related Persons Name: SONG PENA Address: Home [address] [place], [place] [phone] Care Team Personnel Name: LARY WHEAT DO Position: P4 Physician - Primary Care Med Service: Active Provider Member Role: Primary Care Physician Address: Address: [address] [place] [address]- Name: JAC CHRISTENSEN MD Position: P4 Physician - Cardiology Med Service: Active Provider Member Role: Teacher Drama Address: Address: [address] [facility] [address] [place] [address]- [place] Care Team Related Persons Name: SONG PENA Address: Home [address] [place], [place] [phone] Care Team Personnel Name: LARY WHEAT DO Position: P4 Physician - Primary Care Med Service: Active Provider Member Role: Primary Care Physician Address: Address: [address] [place] [address]- Name: JAC CHRISTENSEN MD Position: P4 Physician - Cardiology Med Service: Active Provider Member Role: Teacher Drama Address: Address: [address] [facility] [address] [place] [id number]- Care Team Related Persons Name: SONG PENA Address: Home [address] [place], [place] [phone] Care Team Personnel Name: LARY WHEAT DO Position: P4 Physician - Primary Care Med Service: Active Provider Member Role: Primary Care Physician Address: Address: [address] [place] [address]- Name: JAC CHRISTENSEN MD Position: P4 Physician - Cardiology Med Service: Active Provider Member Role: Teacher Drama Address: Address: [address] [facility] [address] [place] [address]- [place] Care Team Related Persons Name: SONG PENA Address: Home [address] [place], [place] [phone] Care Team Personnel Name: LARY WHEAT DO Position: P4 Physician - Primary Care Member Role: Primary Care Physician Address: Address: [address] [place] [address]- Name: JAC CHRISTENSEN MD Position: P4 Physician - Cardiology Address: Address: [address] [facility] [address] [place] [address]- [place] Care Team Related Persons Name: JOSE SONG Address: Home [address] [place], [place] [phone] Care Team Personnel Name: LARY WHEAT DO Position: P4 Physician - Primary Care Med Service: Active Provider Member Role: Primary Care Physician Address: Address: [address] [place] [address]- Name: JAC CHRISTENSEN MD Position: P4 Physician - Cardiology Med Service: Active Provider Member Role: Teacher Drama Address: Address: [address] [phone]- Care Team Related Persons Name: SONG PENA Address: Home [address] [place] [phone] Care Team Personnel Name: LARY WHEAT DO Position: P4 Physician - Primary Care Med Service: Active Provider Member Role: Primary Care Physician Address: Address: [address] [place] [address]- Name: JAC CHRISTENSEN MD Position: P4 Physician - Cardiology Med Service: Active Provider Member Role: Teacher Drama Address: Address: [address] [address]- Care Team Related Persons Name: SONG PENA Address: Home [address] [place], [place] [phone] Care Team Personnel Name: LARY WHEAT DO Position: P4 Physician - Primary Care Member Role: Primary Care Physician Address: Address: [facility] [place] [address]- Name: JAC CHRISTENSEN MD Position: P4 Physician - Cardiology Member Role: Teacher Drama Address: Address: [address] [address] [place] Care Team Related Persons Name: SONG PENA Address: Home [address] [place], [place] [phone] Care Team Personnel Name: LARY WHEAT DO Position: P4 Physician - Primary Care Member Role: Primary Care Physician Address: Address: [address] [place] [address]- Name: JAC CHRISTENSEN MD Position: P4 Physician - Cardiology Member Role: Teacher Drama Address: Address: [address] [facility] [address] [id number]- Care Team Related Persons Name: SONG PENA Address: Home [address] [place] [phone] Care Team Personnel Name: LARY WHEAT DO Position: P4 Physician - Primary Care Member Role: Primary Care Physician Address: Address: [facility] [place] [address]- Name: JAC CHRISTENSEN MD Position: P4 Physician - Cardiology Member Role: Teacher Drama Address: Address: [address] [facility] [address] [id number]- Care Team Related Persons Name: SONG PENA Address: Home [address] [place] [phone] Care Team Personnel Name: LARY WHEAT DO Position: P4 Physician - Primary Care Member Role: Primary Care Physician Address: Address: [facility] [place] [address]- Name: JAC CHRISTENSEN MD Position: P4 Physician - Cardiology Member Role: Teacher Drama Address: Address: [address] [facility] [address] [place], [place] [phone]- Care Team Related Persons Name: PENASONG MIJARES Address: Home [address] [place], [place] [phone] Care Team Personnel Name: LARY WHEAT DO Position: P4 Physician - Primary Care Member Role: Primary Care Physician Address: Address: [facility] [place] [address]- Name: JAC CHRISTENSEN MD Position: P4 Physician - Cardiology Member Role: Teacher Drama Address: Address: [address] [facility] [address] Care Team Related Persons Name: SONG PENA Address: Home [address] [place] [phone] Care Team Personnel Name: LARY WHEAT DO Position: P4 Physician - Primary Care Member Role: Primary Care Physician Address: Address: [address] [place] [phone] [place] [address] Name: JAC CHRISTENSEN MD Position: P4 Physician - Cardiology Member Role: Teacher Drama Address: Address: [address] [place] [address] Care Team Related Persons Name: SONG PENA Address: Home [address] [place] [phone] Care Team Personnel Name: ADRIENNE BYERS DO Position: P4 Physician - Primary Care Member Role: Primary Care Physician Address: Address: [address] [place] [phone] [place] [address] Name: JAC CHRISTENSEN MD Position: P4 Physician - Cardiology Member Role: Teacher Drama Address: Address: [address] [place] [address] Care Team Related Persons Name: SONG PENA Address: Home [address] [place] [phone] Goals (unrecognized section and content) Goals may be documented in a n alternate section FOR RECORDS PERTAINING TO PATIENTS WHO ARE OR HAVE BEEN ENROLLED IN A CHEMICAL DEPENDENCY/SUBSTANCEABUSE PROGRAM, SOME INFORMATION MAY BE OMITTED. This clinical summary was aggregated from multiple sources. Caution should be exercised in using it in the provision of clinical care. This summary normalizes information from multiple sources, and as a consequence, information in this document may materially change the coding, format and clinical context of patient data. In addition, data may be omitted in some cases. CLINICAL DECISIONS SHOULD BE BASED ON THE PRIMARY CLINICAL RECORDS. [employer] [facility]. provides no warranty or guarantee of the accuracy or completeness of information in this document.
[2025-04-25] MEDS: Lactated Ringers 1,000 ML 15 ML IV (06:57)
--- NOTE | 2025-04-25 07:00 | EGD_PTH ---
PATIENT: BETTY CARO LOC: EN U#:[id number] AGE/SX: 70/F ROOM: RE04/25/[address]: Dr. Shan Lockett DO : 1955 BED: DIS: 04/25/2025 SPEC #: [id number] RECD: 04/25/25 09:36 STATUS: RONEN RESkyler #: [id number] LADONNA: 04/25/25 07:[address]: Shan Lockett DEPT: SURGICAL PATHOLOGY RECD BY: Rory De León ENTERED: 04/25/25 09:51 SP TYPE: EGD BIOPSY OT DR: Dr. Marci Nuñez DO Tissues: A - Duodenum, NOS B - Transverse colon C - Rectum, NOS Procedures: Surgery Specimen Level IV HEADER OPERATION: Colonoscopy with biopsy, EGD with biopsy PRE-OP DIAGNOSIS: Irritable bowel syndrome, chronic anemia, ischemic colitis, blood in stool TISSUE SUBMITTED: A- Duodenum biopsy, B- Transverse colon pre polyp site biopsy, C- Rectum biopsy MICROSCOPIC DIAGNOSIS A. Small intestine, duodenum, biopsies: * Irregular and occasionally slightly blunted villi with Teresa's gland hyperplasia and surface desquamation, benign (See Comment) B. Large intestine, transverse prepolyp site: * Benign colonic mucosa with slight cryptic architectural distortion and without active inflammation or dysplasia C. Rectum: * Uniformly distributed crypts with atrophic features and focal surface erosion, suggesting possible ischemic reaction, benign COMMENT The findings in Part A are etiologically not specific and may represent an infectious process, drug reaction, and /or celiac disease. It celiac disease is suspected, additional clinical testing is suggested. MICROSCOPIC DESCRIPTION Slides are reviewed. GROSS DESCRIPTION A. Received in formalin in a container labeled with the patient's name, date of , and duodenum biopsy are multiple cutler-pink fragments of mucosal tissue measuring 0.8 x 0.6 x 0.3 cm in aggregate. Submitted in toto in A1. B. Received in formalin in a container labeled with the patient's name, date of , and transverse colon biopsy prepolyp site are multiple small cutler-pink fragments of mucosal tissue measuring 0.8 x 0.5 x 0.2 cm in aggregate. Submitted in toto in B1. C. Received in formalin in a container labeled with the patient's name, date of , and rectum biopsy are 2 cutler-pink fragments of mucosal tissue each measuring 0.3 x 0.2 x 0.2 cm. Submitted in toto in C1. [facility] 04-25-2025 CPT:82289l3
--- NOTE | 2025-04-25 07:01 | PCM.PRE.AN2 ---
ASA Classification* ASA Classification ASA Classification: 4 (Hx HTN, GERD, CHF, CKD, hx PE, CPalsy, PFO, hx stroke, DM, tremors, has pace maker. Induce carefully and slowly ) Assessment & Plan Anesthesia* Anesthesia Assessment Anesthesia Assessment: Discussed sedation and/or anesthesia options, risks, benefits, and alternatives with patient/parents/legal guardian/POA. Questions invited. The patient/parents/legal guardian/POA seems to understand and agrees to proceed with anesthesia plan. Reviewed the physical assessment, medical history, allergy history and patient home medications list prior to surgery/procedure/anesthetic and documented any changes. Performed airway and anesthesia risk assessments. Anesthesia Type Anesthesia Type: General History Source History Obtained from:: Patient and Chart Anesthesia Focused Assessment* Temperature: 98.0 F Pulse Rate: 73 Blood Pressure: 134/55 Respiratory Rate: 16 Pulse Ox: 96 Oxygen Delivery Method: Room Air Airway Assessment Mouth opens: >3 cm Mallampati Score: II Neck Range of motion (ROM): Full ROM Focused Labs Anesthesia Preop lab: CBC WBC 5.9 K/mm3 (4.4-11.0) 04/21/25 05:16 04/21/25 RBC 3.12 M/mm3 (4.2-5.4) L 04/21/25 05:16 04/21/25 Hgb 9.7 g/dL (12.0-15.0) L 04/21/25 05:16 04/21/25 Hct 30.3 % (37-47) L 04/21/25 05:16 04/21/25 Plt Count 168 K/mm3 (150-450) 04/21/25 05:16 04/21/25 CHEMISTRY Potassium 4.3 mmol/L (3.3-5.1) 04/21/25 05:16 04/21/25 Sodium 142 mmol/L (133-145) 04/21/25 05:16 04/21/25 Magnesium 1.6 mg/dL (1.5-2.2) 04/19/25 03:45 04/19/25 Phosphorus 3.4 mg/dL (2.5-4.9) 07/04/24 07:41 07/04/24 BUN 14 mg/dL (4-19) 04/21/25 05:16 04/21/25 Creatinine 0.95 mg/dL (0.70-1.20) 04/21/25 05:16 04/21/25 Glucose 185 mg/dL (70-99) H 04/21/25 05:16 04/21/25 POC Glucose 128 mg/dL (74-106) H 04/24/25 16:52 04/24/25 TSH 4.050 uIU/mL (0.300-4.200) 04/19/25 03:45 04/19/25 COAG PT 13.3 SECONDS (11.7-14.9) 09/09/24 14:50 09/09/24 Pre-Assessment Diagnosis/Proposed Procedure Planned Operative Procedure(s): COLONOSCOPY/EGD Anesthesia History 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 When Was Last Pacemaker Check 202211/13/24 13:46 QUESTION #4 FULL TEXT: You/Your Family Experience fever (hyperthermia) with Anesthesia Last Oral Intake Last Oral intake: Last Oral Intake NPO since 05:00 04/25/25 06:48 Meds taken in AM with sips of water? Meds patient instructed to LAST PLAVIX/ASA 6/2 AT 1000 04/25/25 06:48 take am of surgery PONV PONV - commercial marketing specialist: PONV - commercial marketing specialist Female Yes 04/23/25 16:09 HX of Motion Sickness No 04/23/25 16:09 HX of N/V After Surgery No 04/23/25 16:09 Non-Smoker No 04/23/25 16:09 Duration of Surgery greater No 04/23/25 16:09 than 60 minutes Number of Risk Factors 1 04/23/25 16:09 PONV Score Low Risk 04/23/25 16:09 Height & Weight Height & Weight: Anesthesia: Height & Weight Height 5 ft 8 in 04/25/25 06:48 Weight: 134.4 kg 04/25/25 06:48 Body Mass Index (BMI) 45.0 04/25/25 06:48 Respiratory Assessment Respiratory Assessment - commercial marketing specialist: Respiratory Tract Infection Hx - commercial marketing specialist Hx Respiratory Tract Infection No 04/23/25 16:09 STOP Sleep Apnea STOP Sleep Apnea - commercial marketing specialist: STOP Sleep Apnea - commercial marketing specialist Hx Hypertension Yes: CONTROLLED ON MED 04/23/25 16:09 Hx Sleep Apnea No 04/23/25 16:09 CPAP No 04/23/25 16:09 BIPAP No 04/23/25 16:09 Do you snore loudly (louder No 04/23/25 16:09 than talking or can be heard Do you often feel tired/ No 04/23/25 16:09 fatigued/ sleepy during daytime? Has anyone observed you stop No 04/23/25 16:09 breathing during sleep? STOP Results Negative 04/23/25 16:09 QUESTION #5 FULL TEXT : Do you snore loudly (louder than talking or can be heard through closed doors)? Tobacco Use History Tobacco Use History - commercial marketing specialist: Tobacco Use History - commercial marketing specialist Tobacco Use Cigarettes 11/13/24 13:46 Smoking Status Former smoker 04/23/25 16:09 Hx Tobacco Use No 04/23/25 16:09 Years Smoking Packs Smoked per Day Smoking Cessation Date was Yes - quit smoking within 15 04/23/25 16:09 within the last 15 years years Hx Smoking Cessation Date 10/06/09 04/23/25 16:09 Hx Smoking Cessation No 04/23/25 16:09 Counseling Hematologic Medial History Hematologic Hx - commercial marketing specialist: Hematologic Medical Hx - position clerk Hx of Blood Transfusion No 04/23/25 16:09 Hx of Transfusion in last 3 No 04/23/25 16:09 Months Date of Last Transfusion (if within last 3 months) Ever experience any problems No 04/23/25 16:09 with transfusion(s)? Specify any problems Hx of Preganancy in last 3 No 04/23/25 16:09 Months Nurse Filling Out Transfusion VCHRISTIN 04/23/25 16:09 & Questions: Date: 04/23/25 04/23/25 16:09 Time: 16:10 04/23/25 16:09 Patient unable to answer at this time (ie. confused, unrespo /Reproduction History /Reproductive History - commercial marketing specialist: /Reproductive Hx- commercial marketing specialist Hx Now No 04/23/25 16:09 Gestational Age (in weeks): EDC: Hx Hx Para Hx Section SAB No 04/23/25 16:09 Active Medications Active Medications: Current Medications Generic Name Dose Route Start Last Admin Trade Name Ava PRN Reason Stop Dose Admin Lactated Ringer's 1,000 mls @ 15 mls/hr 04/25/25 06:30 04/25/25 06:57 IV 15 mls/hr .Q48H VERONA Administration PFSH Medical History Back pain History of Holter monitoring History of stress test History of echocardiogram Cardiology follow-up encounter Ischemic colitis History of left heart catheterization History of mechanical ventilation Cardiogenic pulmonary edema Acute hypoxic respiratory failure Multiple lung nodules Major depressive disorder Left bundle branch block NSTEMI (non-ST elevated myocardial infarction) Diabetic peripheral vascular disease Diabetic nephropathy Chronic kidney disease (CKD) Bleeding ulcer Dyslipidemia Chronic systolic heart failure Pacemaker Congestive heart failure (CHF) Cerebral palsy Anxiety and depression Heart failure with reduced ejection fraction GERD (gastroesophageal reflux disease) Insomnia Transient ischemic attack AV node dysfunction Ischemic cardiomyopathy Presence of biventricular implantable cardioverter-defibrillator Ulcer Restless legs High cholesterol Anxiety Former smoker ICD (implantable cardioverter-defibrillator) in place Coronary artery disease CVA (cerebral vascular accident) PFO (patent foramen ovale) Cardiac resynchronization therapy defibrillator (LIP AND GATE BUILDER-D) in place Myocarditis Hyperlipidemia Hypertension Home Medications ?Medication ?Instructions ?Recorded ?Last Taken ?Type clonazepam 1 mg tablet 1 mg PO QHS anxiety 11/18/14 07/02/24 History trazodone 50 mg tablet 50 mg PO DAILY Anxiety 11/18/14 04/19/25 20:30 History cholecalciferol (vitamin D3) 25 50 mcg (2 x 25 mcg (1,000 unit)) 09/30/23 04/19/25 20:30 Rx mcg (1,000 unit) tablet PO QHS supplement #0 tabs aspirin 81 mg tablet,delayed 81 mg PO .COMPLEX heart 10/01/23 04/23/25 History release Held on 04/25/25. Instructions: HOLD rosuvastatin 20 mg tablet 20 mg PO QHS cholesterol 02/21/24 04/19/25 20:30 History acetaminophen 500 mg tablet 500 mg PO Q6H PRN PRN Pain Score 06/13/24 07/01/24 History 1-10 docusate sodium 100 mg capsule 100 mg PO DAILY PRN constipation 06/13/24 07/02/24 History furosemide 20 mg tablet 20 mg PO QDAY PRN for 2lb weight 06/13/24 06/19/24 History gain pantoprazole 40 mg tablet,delayed 40 mg PO DAILY GERD 07/17/24 04/20/25 08:50 History release baclofen 5 mg tablet 5 mg PO QDAY muscle spasms 08/03/24 Unknown History albuterol sulfate 90 mcg/actuation 1 puff inhalation Q6H PRN 09/09/24 Unknown Rx aerosol inhaler shortness of breath or wheezing #8.5 grams escitalopram oxalate 5 mg tablet 5 mg PO QDAY Mood 11/28/24 04/20/25 08:50 History polyethylene glycol 3350 17 17 g PO DAILY Constipation 11/28/24 Unknown History gram/dose oral powder (Miralax) metformin 500 mg tablet 500 mg PO QDAY Diabetes 01/18/25 Unknown History metoprolol succinate 25 mg 25 mg PO QDAY BP 01/18/25 04/20/25 10:35 History tablet,extended release 24 hr (Toprol XL) lamotrigine 100 mg tablet 100 mg PO QDAY Anxiety 01/23/25 04/20/25 08:50 History polyethylene glycol 400 0.25 % eye 1 drp ophthalmic (eye) .q1hr PRN 01/23/25 Unknown History gel drops (Blink Gel Tears) Dry eyes ferrous sulfate 325 mg (65 mg 325 mg PO QDAY Supplement 02/13/25 04/20/25 08:30 History iron) tablet (Feosol) linaclotide 145 mcg capsule 145 mcg PO QAM Constipation #60 02/14/25 Unknown Rx (Linzess) caps hyoscyamine sulfate 0.125 mg tablet 0.125 mg PO TID PRN dyspepsia #90 03/05/25 Unknown Rx tabs clopidogrel 75 mg tablet 75 mg PO .COMPLEX Antiplatelet 04/19/25 04/23/25 History Held on 04/25/25. Instructions: HOLD deutetrabenazine 6 mg 6 mg PO DAILY involuntary Movements 04/19/25 04/20/25 08:50 History tablet,extended release 24 hr (Austedo XR) oxycodone-acetaminophen 5 mg-325 1 tab PO Q6H PRN PRN severe pain 04/19/25 Unknown History mg tablet phenazopyridine 100 mg tablet 100 mg PO TID PRN PRN bladder pain 04/19/25 Unknown History Allergy/AdvReac Type Severity Reaction Status Date / Time No Known Allergies Allergy Verified 04/25/25 06:44 Family History Father Heart disease Myocardial infarction Mother Anxiety and depression Suicide and self-inflicted injury from suicide age 52. Surgical History History of cardiac catheterization Presence of stent in coronary artery History of bilateral cataract extraction History of skin surgery S/P colon polypectomy History of cardiac defibrillator placement History of cholecystectomy History of coronary artery stent placement Social History household members: spouse Smoking Status: Former smoker how long ago did patient quit smokin-1.5 ppd from teen until quit in 2008. alcohol intake: never substance use type: does not use caffeine: Yes seatbelt use: always do you feel safe at home: Yes additional social history: - Cuate Review of Systems (Anesthesia) ROS Narrative System reviewed and no additional complaints, except as documented. Physical Exam Const alert and oriented x3 Nutritional Appearance: morbidly obese Resp normal respiratory effort, normal air movement and clear to auscultation bilaterally Cardio regular rate, regular rhythm, no murmurs and diaphoretic
[2025-04-25 07:44] LABS: Bedside Glucose 225 mg/dL (74-106)
--- NOTE | 2025-04-25 07:52 | OP.EGD_ITS ---
Patient Name: Mansi Espino Procedure Date: 04/25/2025 7:08 AM Date of : 1955 Age: 70 Procedure: Upper GI endoscopy Indications: Epigastric abdominal pain, Iron deficiency anemia Providers: Shan Lockett DO Medicines: Monitored Anesthesia Care Patient Profile: This is a 70 year old female. Refer to note in patient chart for documentation of history and physical. Patient has symptoms of chronic abdominal cramping, chronic epigastric abdominal pain and chronic dyspepsia. Complications: No immediate complications. Procedure: Pre-Anesthesia Assessment: - Prior to the procedure, a History and Physical was performed, and patient medications and allergies were reviewed. The patient is competent. The risks and benefits of the procedure and the sedation options and risks were discussed with the patient. All questions were answered and informed consent was obtained. Patient identification and proposed procedure were verified by the physician in the pre-procedure area. Mental Status Examination: alert and oriented. Airway Examination: normal oropharyngeal airway and neck mobility. Respiratory Examination: clear to auscultation. CV Examination: normal. Prophylactic Antibiotics: The patient does not require prophylactic antibiotics. Prior Anticoagulants: The patient has taken no anticoagulant or antiplatelet agents. ASA Grade Assessment: II - A patient with mild systemic disease. After reviewing the risks and benefits, the patient was deemed in satisfactory condition to undergo the procedure. The anesthesia plan was to use monitored anesthesia care (MAC). Immediately prior to administration of medications, the patient was re-assessed for adequacy to receive sedatives. The heart rate, respiratory rate, oxygen saturations, blood pressure, adequacy of pulmonary ventilation, and response to care were monitored throughout the procedure. The physical status of the patient was re-assessed after the procedure. After obtaining informed consent, the endoscope was passed under direct vision. Throughout the procedure, the patient's blood pressure, pulse, and oxygen saturations were monitored continuously. The colonoscope was introduced through the mouth, and advanced to the second part of duodenum. The upper GI endoscopy was accomplished without difficulty. The patient tolerated the procedure well. Scope In: 7:19:02 AM Scope Out: 7:25:06 AM Total Procedure Duration Time 0 hours 6 minutes 4 seconds Findings: The examined esophagus was normal. No gross lesions were noted in the entire examined stomach. An acquired benign-appearing, intrinsic severe stenosis was found in the second portion of the duodenum and was non-traversed. Biopsies were taken with a cold forceps for histology. Verification of patient identification for the specimen was done. Estimated blood loss was minimal. Impression: - Normal esophagus. - No gross lesions in the entire stomach. - Acquired duodenal stenosis. Biopsied. Recommendation: - Discharge patient to home. - Resume previous diet. - Continue present medications. - Await pathology results. - Repeat upper endoscopy for retreatment. Procedure Code(s): --- Professional --- 82153, Esophagogastroduodenoscopy, flexible, transoral; with biopsy, single or multiple CPT copyright 2021 [employer]. All rights reserved. The codes documented in this report are preliminary and upon a p mechanic review may be revised to meet current compliance requirements. Shan Lockett DO 04/25/2025 7:51:53 AM This report has been signed electronically. Number of Addenda: 0 Note Initiated On: 04/25/2025 7:08 AM
--- NOTE | 2025-04-25 07:52 | OP.CCLET_ITS ---
04/25/2025 Marci Nuñez Do Re : Upper GI endoscopy procedure for Mansi Espino Dear Dr. Nuñez This procedure was performed on Friday, April 25, 2025. My impressions and recommendations are as follows: Impressions : - Normal esophagus. - No gross lesions in the entire stomach. - Acquired duodenal stenosis. Biopsied. Recommendations : - Discharge patient to home. - Resume previous diet. - Continue present medications. - Await pathology results. - Repeat upper endoscopy for retreatment. My findings are described in the full procedure note, which is enclosed. If I can be of further assistance, please feel free to contact me at . Sincerely, Shan Lockett, 04/25/2025 7:51:53 AM This report has been signed electronically.
--- NOTE | 2025-04-25 07:56 | PCM.POST.ANE ---
Anesthesia: Postop Eval I Current Vital Signs Temperature: 97 F Pulse Rate: 60 Blood Pressure: 87/41 Respiratory Rate: 16 Pulse Ox: 97 Oxygen Delivery Method: Room Air Assessment Airway patent: Yes Spontaneous unlabored respirations: Yes Mental status: Asleep nausea: No Vomiting: No Anesthesia Complication: No Fluid Hydration Crystalloid volume administer (ml): 500 Total IV fluid infused: 500 Progress Note Anesthesia document: Postop Eval 1 completed: Yes
--- NOTE | 2025-04-25 07:58 | OP.COLON_ITS ---
Patient Name: Mansi Espino Procedure Date: 04/25/2025 7:25 AM Date of : 1955 Age: 70 Procedure: Colonoscopy Indications: Generalized abdominal pain, Iron deficiency anemia, Positive fecal immunochemical test Providers: Shan Lockett DO Medicines: Monitored Anesthesia Care Patient Profile: This is a 70 year old female. Refer to note in patient chart for documentation of history and physical. Patient has symptoms of chronic abdominal cramping, chronic epigastric abdominal pain and chronic dyspepsia. Last Colonoscopy: date unknown. Unable to locate last colonoscopy report. Complications: No immediate complications. Procedure: Pre-Anesthesia Assessment: - Prior to the procedure, a History and Physical was performed, and patient medications and allergies were reviewed. The patient is competent. The risks and benefits of the procedure and the sedation options and risks were discussed with the patient. All questions were answered and informed consent was obtained. Patient identification and proposed procedure were verified by the physician in the pre-procedure area. Mental Status Examination: alert and oriented. Airway Examination: normal oropharyngeal airway and neck mobility. Respiratory Examination: clear to auscultation. CV Examination: normal. Prophylactic Antibiotics: The patient does not require prophylactic antibiotics. Prior Anticoagulants: The patient has taken no anticoagulant or antiplatelet agents. ASA Grade Assessment: II - A patient with mild systemic disease. After reviewing the risks and benefits, the patient was deemed in satisfactory condition to undergo the procedure. The anesthesia plan was to use monitored anesthesia care (MAC). Immediately prior to administration of medications, the patient was re-assessed for adequacy to receive sedatives. The heart rate, respiratory rate, oxygen saturations, blood pressure, adequacy of pulmonary ventilation, and response to care were monitored throughout the procedure. The physical status of the patient was re-assessed after the procedure. After I obtained informed consent, the scope was passed under direct vision. Throughout the procedure, the patient's blood pressure, pulse, and oxygen saturations were monitored continuously. The colonoscope was introduced through the anus and advanced to the terminal ileum. The colonoscopy was performed without difficulty. The patient tolerated the procedure well. The quality of the bowel preparation was adequate. The terminal ileum, ileocecal valve, appendiceal orifice, and rectum were photographed. Scope In: 7:28:14 AM Scope Withdrawal Time 0 hours 9 minutes 15 seconds Scope Out: 7:46:38 AM Total Procedure Duration Time 0 hours 18 minutes 24 seconds Findings: The perianal and digital rectal examinations were normal. Localized moderate inflammation characterized by erosions, erythema and friability was found in the rectum. Biopsies were taken with a cold forceps for histology. Verification of patient identification for the specimen was done. Estimated blood loss was minimal. A 8 mm post polypectomy scar was found in the transverse colon. Biopsies were taken with a cold forceps for histology. Verification of patient identification for the specimen was done. Estimated blood loss was minimal. Multiple small-mouthed diverticula were found in the recto-sigmoid colon, sigmoid colon, transverse colon and ascending colon. The terminal ileum appeared normal. Impression: - Localized moderate inflammation was found in the rectum secondary to colitis. Biopsied. 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 Biopsied. - Diverticulosis in the recto-sigmoid colon, in the sigmoid colon, in the transverse colon and in the ascending colon. - The examined portion of the ileum was normal. Recommendation: - Return patient to referring hospital for ongoing care. - Resume previous diet. - Continue present medications. - Await pathology results. - Repeat colonoscopy in 1 year to evaluate the response to therapy. - Mesalamine 2.4 g a day - IBD workup Procedure Code(s): --- Professional --- 07080, Colonoscopy, flexible; with biopsy, single or multiple CPT copyright 2021 [employer]. All rights reserved. The codes documented in this report are preliminary and upon piano assembler review may be revised to meet current compliance requirements. Shan Lockett DO 04/25/2025 7:57:27 AM This report has been signed electronically. Number of Addenda: 0 Note Initiated On: 04/25/2025 7:25 AM
--- NOTE | 2025-04-25 07:58 | OP.CCLET_ITS ---
04/25/2025 Marci Nuñez Do Re : Colonoscopy procedure for Mansi Espino Dear Dr. Nuñez This procedure was performed on Friday, April 25, 2025. My impressions and recommendations are as follows: Impressions : - Localized moderate inflammation was found in the rectum secondary to colitis. Biopsied. 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 Biopsied. - Diverticulosis in the recto-sigmoid colon, in the sigmoid colon, in the transverse colon and in the ascending colon. - The examined portion of the ileum was normal. Recommendations : - Return patient to referring hospital for ongoing care. - Resume previous diet. - Continue present medications. - Await pathology results. - Repeat colonoscopy in 1 year to evaluate the response to therapy. - Mesalamine 2.4 g a day - IBD workup My findings are described in the full procedure note, which is enclosed. If I can be of further assistance, please feel free to contact me at . Sincerely, Shan Lockett DO 04/25/2025 7:57:27 AM This report has been signed electronically.
--- NOTE | 2025-04-25 08:23 | PCM.POSTANE2 ---
Anesthesia Postop Eval I Sum Postop Eval Completion status Anesthesia document: Postop Eval 1 completed: Yes Anesthesia Postop Eval I Summary Anesthesia Postop Eval I Summary: Anesthesia Postop Eval I: Assessment Summary Airway patent Yes 04/25/25 07:57 [email or web address] Spontaneous unlabored Yes 04/25/25 07:57 [email or web address] respirations Mental status Asleep 04/25/25 07:57 [email or web address] nausea No 04/25/25 07:57 [email or web address] Vomiting No 04/25/25 07:57 [email or web address] Anesthesia Postop Eval I: Fluid Summary Crystalloid volume administer 500 04/25/25 07:57 [email or web address] (ml) Colloids volume administered ( ml) Blood Product volume administered (ml) Total IV fluid infused 500 04/25/25 07:57 [email or web address] Anesthesia Postop Eval I: Summary Notes Anesthesia Complication No 04/25/25 07:57 [email or web address] Anesthesia Complication Comment: Post-operative progress note Anesthesia: Postop Eval II Evaluation Mental status: Awake Pain Level: 0 nausea: No Vomiting: No
== END 2025-04-25 08:26 | disposition home or self-care (01) ==
LOC: EN 06:41 → AC 06:42
PROVIDERS: PCP Family Medicine; Referring Provider Family Medicine; Visit Provider Internal Medicine Gastroenterology
PROC: 0DJD8ZZ Inspection of Lower Intestinal Tract, Via Natural or Artificial Opening Endoscopic (ICD-10-PCS; CPT 45378; principal; 2025-04-25 06:55)
DX: K31.5 Obstruction of duodenum (principal); I13.0 Hypertensive heart and chronic kidney disease with heart failure and stage 1 through stage 4 chronic kidney disease, or unspecified chronic kidney disease; I50.22 Chronic systolic (congestive) heart failure; E11.22 Type 2 diabetes mellitus with diabetic chronic kidney disease; K59.09 Other constipation; K55.9 Vascular disorder of intestine, unspecified; I25.10 Atherosclerotic heart disease of native coronary artery without angina pectoris; K58.9 Irritable bowel syndrome, unspecified; G47.00 Insomnia, unspecified; K21.9 Gastro-esophageal reflux disease without esophagitis; I25.5 Ischemic cardiomyopathy; D64.9 Anemia, unspecified; E78.00 Pure hypercholesterolemia, unspecified; N18.9 Chronic kidney disease, unspecified; I25.2 Old myocardial infarction; Z79.82 Long term (current) use of aspirin; Z79.02 Long term (current) use of antithrombotics/antiplatelets; Z79.84 Long term (current) use of oral 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 drugs; Z79.899 Other long term (current) drug therapy; Z87.891 Personal history of nicotine dependence; K57.31 Diverticulosis of large intestine without perforation or abscess with bleeding
CPT/HCPCS: 45380; 43239; 82962; 88305; J2405

== ENCOUNTER 2025-05-22 14:38 | Emergency (ER) | payer MEDICARE, SELFPAY ==
[2025-05-22 14:39] VITALS: BP 89/63; PULSE 83; RESP 16; TEMP 36.9; O2SAT 90; BMI 21.1
[2025-05-22 15:40] LABS: Hematocrit 32.8 % (37-47); Hemoglobin 10.6 g/dL (12.0-15.0); Immature Granulocytes Count 0.030 X10^3/uL (0.0-0.0); Mean Corp Hgb Conc 32.3 g/dL (32-36); Mean Corpuscular Volume 95.6 fL (81-99); Mean Platelet Vol. 10.2 fl (6.2-12.0); NRBC Flagged by Analyzer 0 % (0-5); Platelet Count 221 K/mm3 (150-450); RBC Distribution Width CV 13.2 % (11.6-14.6); RBC Distribution Width SD 46.4 fl (35.1-43.9); Red Blood Count 3.43 M/mm3 (4.2-5.4); White Blood Count 7.3 K/mm3 (4.4-11.0)
--- NOTE | 2025-05-22 15:54 | CT_ITS ---
PROCEDURE: CTA ABD/PELVIS W/WO CONTRAST 05/22/2025 REASON FOR EXAM: ABD PAIN, HX OF ISCHEMIC COLITIS TECHNIQUE: CTA ABD/PELVIS W/WO CONTRAST Multiplanar Sagittal and Coronal images were obtained. CONTRAST: Isovue 370 VOLUME: 87 mL One or more dose reduction techniques were used (e.g., Automated exposure control, adjustment of the mA and/or kV according to patient size, use of iterative reconstruction technique). RADIATION DOSE SUMMARY: CTDlvol: 20.50+ 9.42 mGy DLP: 92.18 mGycm COMPARISON: 11/18/2024. FINDINGS: Moderate atherosclerosis of the abdominal aorta. The infrarenal abdominal aorta measures 2.8 cm representing fusiform ectasia. The celiac trunk is patent. 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 Atherosclerosis of the origin of the inferior mesenteric artery without hemodynamically significant stenosis. Atherosclerosis of the bilateral common iliac arterial systems without hemodynamically significant stenosis. Cystic changes of the right lung base. Right basilar consolidative opacity which may be infectious, inflammatory, represent chronic interstitial changes. The peripheral soft tissues are unremarkable. Degenerative changes of the spine. No suspicious lymphadenopathy. The liver is unremarkable. Surgically absent gallbladder. The pancreas is atrophic. The spleen is unremarkable. The adrenals are unremarkable. Left kidney simple cysts. Right kidney extrarenal pelvis. Intraluminal air within the urinary bladder which may represent recent instrumentation or infection. Unremarkable uterus. Normal caliber large and small bowel. Colonic diverticulosis. Hyperdensity within the sigmoid colon. Evaluation for intraluminal bleeding is limited on this single-phase study. No pneumatosis. 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 Intraluminal air within the urinary bladder which may represent infection or re cent instrumentation. Correlate with clinical history. Hyperdensity within the sigmoid colon favoring debris given multi focality. Ev aluation for intraluminal hemorrhage is limited on this single phase CTA. Colonic diverticulosis. Atherosclerosis as above. Reading Location: [place] [id number]
--- NOTE | 2025-05-22 15:57 | EX.ED.DYSGE1 ---
HPI History of Present Illness Chief Complaint: Abd Pain Narrative Narrative: Patient is a 70-year-old female past medical history of ischemic colitis, CVA, chronic kidney disease, heart failure, anxiety, depression, PFO, hyperlipidemia, myocarditis who presented to the emergency department chief complaint abdominal pain. According the patient's she has been having abdominal pain for approximately 6 months now and notes that she had been asking for more pain medication than she normally asked with her abdominal pain therefore her brought her here to be further evaluated. He states that she does have a history of ischemic colitis. He states that she recently had upper and lower endoscopies that she had been having GI bleed in the past. [facility] Medical History Back pain History of Holter monitoring History of stress test History of echocardiogram Cardiology follow-up encounter Ischemic colitis History of left heart catheterization History of mechanical ventilation Cardiogenic pulmonary edema Acute hypoxic respiratory failure Multiple lung nodules Major depressive disorder Left bundle branch block NSTEMI (non-ST elevated myocardial infarction) Diabetic peripheral vascular disease Diabetic nephropathy Chronic kidney disease (CKD) Bleeding ulcer Dyslipidemia Chronic systolic heart failure Pacemaker Congestive heart failure (CHF) Cerebral palsy Anxiety and depression Heart failure with reduced ejection fraction GERD (gastroesophageal reflux disease) Insomnia Transient ischemic attack AV node dysfunction Ischemic cardiomyopathy Presence of biventricular implantable cardioverter-defibrillator Ulcer Restless legs High cholesterol Anxiety Former smoker ICD (implantable cardioverter-defibrillator) in place Coronary artery disease CVA (cerebral vascular accident) PFO (patent foramen ovale) Cardiac resynchronization therapy defibrillator ([employer]) in place Myocarditis Hyperlipidemia Hypertension Home Medications ?Medication ?Instructions ?Recorded ?Last Taken ?Type clonazepam 1 mg tablet 1 mg PO QHS anxiety 11/18/14 07/02/24 History trazodone 50 mg tablet 50 mg PO DAILY Anxiety 11/18/14 04/19/25 20:30 History cholecalciferol (vitamin D3) 25 50 mcg (2 x 25 mcg (1,000 unit)) 09/30/23 04/19/25 20:30 Rx mcg (1,000 unit) tablet PO QHS supplement #0 tabs aspirin 81 mg tablet,delayed 81 mg PO .COMPLEX heart 10/01/23 04/23/25 History release rosuvastatin 20 mg tablet 20 mg PO QHS cholesterol 02/21/24 04/19/25 20:30 History furosemide 20 mg tablet 20 mg PO QDAY PRN for 2lb weight 06/13/24 06/19/24 History gain escitalopram oxalate 5 mg tablet 5 mg PO QDAY Mood 11/28/24 04/20/25 08:50 History polyethylene glycol 3350 17 17 g PO DAILY Constipation 11/28/24 Unknown History gram/dose oral powder (Miralax) metformin 500 mg tablet 500 mg PO QDAY Diabetes 01/18/25 Unknown History metoprolol succinate 25 mg 25 mg PO QDAY BP 01/18/25 04/20/25 10:35 History tablet,extended release 24 hr (Toprol XL) lamotrigine 100 mg tablet 100 mg PO QDAY Anxiety 01/23/25 04/20/25 08:50 History polyethylene glycol 400 0.25 % eye 1 drp ophthalmic (eye) .q1hr PRN 01/23/25 Unknown History gel drops (Blink Gel Tears) Dry eyes ferrous sulfate 325 mg (65 mg 325 mg PO QDAY Supplement 02/13/25 04/20/25 08:30 History iron) tablet (Feosol) linaclotide 145 mcg capsule 145 mcg PO QAM Constipation #60 02/14/25 Unknown Rx (Linzess) caps hyoscyamine sulfate 0.125 mg tablet 0.125 mg PO TID PRN dyspepsia #90 03/05/25 Unknown Rx tabs clopidogrel 75 mg tablet 75 mg PO .COMPLEX Antiplatelet 04/19/25 04/23/25 History deutetrabenazine 6 mg 6 mg PO DAILY involuntary Movements 04/19/25 04/20/25 08:50 History tablet,extended release 24 hr (Austedo XR) phenazopyridine 100 mg tablet 100 mg PO TID PRN PRN bladder pain 04/19/25 Unknown History oxycodone 5 mg tablet 5 mg PO Q6H PRN PRN Pain Score 04/30/25 Unknown Rx 6-10 7 days #28 tabs pantoprazole 40 mg tablet,delayed 40 mg PO DAILY 30 days #30 tabs 04/30/25 Unknown Rx release cephalexin 500 mg capsule 500 mg PO Q12H 5 days #10 caps 05/22/25 Unknown Rx dicyclomine 20 mg tablet 20 mg PO TID #30 tabs 05/22/25 Unknown Rx ondansetron 4 mg disintegrating 4 mg PO Q6H PRN nausea and 05/22/25 Unknown Rx tablet vomiting #20 tabs Allergy/AdvReac Type Severity Reaction Status Date / Time No Known Allergies Allergy Verified 05/22/25 14:40 Family History Father Heart disease Myocardial infarction Mother Anxiety and depression Suicide and self-inflicted injury from suicide age 52. Surgical History History of cardiac catheterization Presence of stent in coronary artery History of bilateral cataract extraction History of skin surgery S/P colon polypectomy History of cardiac defibrillator placement History of cholecystectomy History of coronary artery stent placement Social History household members: spouse Smoking Status: Former smoker how long ago did patient quit smokin-1.5 ppd from teen until quit in 2008. alcohol intake: never substance use type: does not use caffeine: Yes seatbelt use: always do you feel safe at home: Yes additional social history: - [facility] ROS ED ROS Narrative Constitutional: Denies any fevers, chills, headaches Eyes: Denies change in vision double vision blurry vision Cardiovascular: Denies chest pain or palpitations Respiratory: Denies coughing wheezing shortness of breath Abdomen: Complains of abdominal pain as noted above denies nausea vomiting diarrhea : Denies any urinary symptoms Neurological: Denies any numbness, some tingling that is new Musculoskeletal: Denies back pain Skin: Denies any rashes or lesions EXAM Physical Exam Narrative Exam Narrative: General: Patient is lying in bed rest comfortably did not appear to be acute distress Head: Atraumatic, normocephalic Eyes: PERRL bilaterally, EOMI by, no conjunctival injection noted Neck: Soft, supple, trachea midline Cardiovascular: Regular rhythm no murmurs gallops rubs noted Respiratory: Clear to auscultation bilaterally Abdomen: Soft, nondistended, diffuse tenderness to palpation no rebound or guarding on exam Extremities: +4/5 strength noted in the bilateral upper and lower extremities, radial pulses +2/4 and about extremities, no pedal edema on exam Neurological: Patient following commands knew that she was at [facility] 2024 Skin: Warm, dry, intact no rashes or lesions noted Const Vital Signs: 05/22/25 14:39 05/22/25 16:35 05/22/25 19:04 Temperature 98.5 F Temperature Source Oral Pulse Rate 83 65 60 Respiratory Rate 16 14 19 H Blood Pressure 89/63 L 112/62 107/58 L Blood Pressure Mean 71 78 74 Pulse Ox 90 93 90 Oxygen Delivery Method Room Air Room Air Room Air Oxygen Flow Rate (L/min) 05/22/25 19:08 05/22/25 19:08 Temperature Temperature Source Pulse Rate Respiratory Rate Blood Pressure Blood Pressure Mean Pulse Ox 83 93 Oxygen Delivery Method Room Air Nasal Cannula Oxygen Flow Rate (L/min) 2 MDM MDM MDM Narrative Medical decision making narrative: Patient is a 70-year-old female who presented to the emergency department chief complaint of abdominal pain that has been worsening. On the differential diagnosis includes but not limited to ischemic colitis, bowel obstruction, appendicitis, pancreatitis, UTI. Once workup is obtained reviewed she will be reevaluated. Patient given IV fluids for hydration. Patient given morphine Zofran. Patient CBC reviewed showed no evidence leukocytosis white blood count normal at 7.4, he was 9.4, platelet count was 9193. Patient sodium was 137, potassium normal 4.6, creatinine was noted be 1.42, AST and ALT are 28 and 7 respectively. Patient's lipase was noted to be 13. Patient's urinalysis reviewed and showed 100 leukocyte esterase positive nitrites 25-50 white cells with 1+ bacteria will give the patient a gram Rocephin urine will be sent for culture. She will be placed on Keflex for 5 days. She was advised follow-up on the urine culture with her doctor. 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 Intraluminal air within the urinary bladder which may represent infection or recent instrumentation likely secondary to UTI. Hyperdensity within the sigmoid colon favoring debris given multifocality. Colonic diverticulosis atherosclerosis noted. Reevaluation the patient she is feeling much better she would like to go home at this point time. Patient did have a brief episode hypoxia this was likely secondary to the morphine given as she recovered. She was advised to follow-up with her doctor and return with worsening symptoms or concerns. She does agree with this plan all course concerns answered she was discharged home in stable condition. She is also given prescriptions for Bentyl and Zofran for her abdominal pain and nausea. at bedside is also agreeable with this plan as well. Lab Data Labs: Laboratory Results - last 24 hr 05/22/25 05/22/25 05/22/25 15:15 16:36 19:00 WBC 7.3 7.4 RBC 3.43 L 3.05 L Hgb 10.6 L 9.4 L Hct 32.8 L 29.1 L MCV 95.6 95.4 MCH 30.9 30.8 MCHC 32.3 32.3 RDW Std Deviation 46.4 H 45.8 H RDW Coeff of Edita 13.2 13.2 Plt Count 221 193 MPV 10.2 10.4 Immature Gran % (Auto) 0.400 0.400 Neut % (Auto) 70.5 H 67.0 Lymph % (Auto) 16.2 L 17.5 L [place] % (Auto) 10.4 H 12.5 H Eos % (Auto) 2.1 2.2 Baso % (Auto) 0.4 0.4 Absolute Neuts (auto) 5.1 5.0 Absolute Lymphs (auto) 1.18 1.30 Nucleated RBC % 0 0 Sodium 136 137 Potassium 4.4 4.6 Chloride 100 102 Carbon Dioxide 23.7 25.3 Anion Gap 12 10 BUN 27 H 28 H Creatinine 1.39 H 1.42 H Estim Creat Clear Calc 36.36 L 35.59 L Est GFR (MDRD) Non-Af 40 L 39 L BUN/Creatinine Ratio 19.7 20.0 Glucose 236 H 173 H Calcium 9.0 8.7 Total Bilirubin 0.33 0.27 AST 30 28 ALT 6 7 Alkaline Phosphatase 74 67 Total Protein 6.8 6.4 Albumin 3.2 L 3.1 L Globulin 3.6 3.3 Albumin/Globulin Ratio 0.9 0.9 Lipase 15 13 Urine Color Ena Urine Clarity Sl. Cloudy Urine pH 7.0 Ur Specific [place] 1.005 Urine Protein 30 H Urine Glucose (UA) Normal Urine Ketones Negative Urine Occult Blood 10 H Urine Nitrite Positive H Urine Bilirubin 6 H Urine Urobilinogen 8 H Ur Leukocyte Esterase 100 H Urine RBC 0-5 SEEN Urine WBC 25-50 SEEN Ur Squamous Epith Cells 0 SEEN Urine Bacteria 1+ Urine Mucus 0 SEEN Radiography Diagnostic Testing: Clinical Impression(s) from Imaging Studies Abdomen/Pelvis CTA 05/22/25 15:54 IMPRESSION: Short-segment occlusion of the proximal superior mesenteric artery with distal reconstitution. Intraluminal air within the urinary bladder which may represent infection or recent instrumentation. Correlate with clinical history. Hyperdensity within the sigmoid colon favoring debris given multi focality. Evaluation for intraluminal hemorrhage is limited on this single phase CTA. Colonic diverticulosis. Atherosclerosis as above. Reading Location: [place] [id number] Discharge Plan Triage Chief Complaint: Abd Pain ED Provider: Fazal Heller Dx/Rx/DC Orders Clinical Impression: Abdominal pain, Nausea & vomiting, Urinary tract infection Prescriptions: New cephalexin 500 mg capsule 500 mg PO Q12H 5 Days Qty: 10 0RF ondansetron 4 mg tablet,disintegrating 4 mg PO Q6H PRN (Reason: nausea and vomiting) Qty: 20 0RF dicyclomine 20 mg tablet 20 mg PO TID Qty: 30 0RF No Action furosemide 20 mg tablet 20 mg PO QDAY PRN (Reason: for 2lb weight gain) metformin 500 mg tablet 500 mg PO QDAY metoprolol succinate [Toprol XL] 25 mg tablet extended release 24 hr 25 mg PO QDAY Blink Gel Tears 0.25 % drops,gel 1 drp ophthalmic (eye) .q1hr PRN (Reason: Dry eyes) lamotrigine 100 mg tablet 100 mg PO QDAY escitalopram oxalate 5 mg tablet 5 mg PO QDAY polyethylene glycol 3350 [Miralax] 17 gram/dose powder 17 g PO DAILY ferrous sulfate [Feosol] 325 mg (65 mg iron) tablet 325 mg PO QDAY Linzess 145 mcg capsule 145 mcg PO QAM Qty: 60 2RF trazodone 50 MG tablet 50 mg PO DAILY clonazepam 1 MG tablet 1 mg PO QHS cholecalciferol (vitamin D3) 25 mcg (1,000 unit) Tablet 50 mcg PO QHS Qty: 0 0RF aspirin 81 mg tablet,delayed release (DR/EC) 81 mg PO .COMPLEX Rx Instructions: 81 mg orally EVERY OTHER DAY; rosuvastatin 20 mg tablet 20 mg PO QHS pantoprazole 40 mg Tablet,Delayed Release (Dr/Ec) 40 mg PO DAILY 30 Days Qty: 30 0RF oxycodone 5 mg Tablet 5 mg PO Q6H PRN PRN (Reason: Pain Score 6-10) 7 Days Qty: 28 0RF [place] XR 6 mg tablet extended release 24 hr 6 mg PO DAILY phenazopyridine 100 mg tablet 100 mg PO TID PRN PRN (Reason: bladder pain) clopidogrel 75 mg Tablet 75 mg PO .COMPLEX Rx Instructions: 75 mg orally Wednesday, Wednesday, Wednesday; hyoscyamine sulfate 0.125 mg tablet 0.125 mg PO TID PRN (Reason: dyspepsia) Qty: 90 2RF Primary Care Provider: Marci Nuñez Referrals: Marci Nuñez, [Primary Care Provider] - Activity Restrictions/Additional Instructions: Follow-up your doctor in outpatient setting. Take antibiotics for your urinary tract infection as prescribed use other antibiotics as prescribed as well. Return with worsening symptoms or any concerns. Follow-up and urine culture with your doctor. Print Language: Romanian Disposition Disposition: Home, Self Care
[2025-05-22 16:19] LABS: AST(SGOT) 30 U/L (<=31); Alanine Aminotransfer ALT/SGPT 6 U/L (<=34); Albumin, Serum 3.2 g/dL (3.4-4.8); Alkaline Phosphatase 74 U/L (35-104); Anion Gap 12 (5-15); BUN 27 mg/dL (4-19); BUN/Creat Ratio 19.7 RATIO (10-20); Calcium,Total 9.0 mg/dL (7.6-11.0); Carbon Dioxide 23.7 mmol/L (21.0-32.0); Chloride 100 mmol/L (98-108); Estimated Creatinine Clearance 36.36 ml/min (50-250); Globulin 3.6 g/dL (2.2-4.2); Glucose 236 mg/dL (70-99); Lipase 15 U/L (13-75); Potassium 4.4 mmol/L (3.3-5.1)
[2025-05-22] MEDS: 0.9% Normal Saline (1000mL) 1,000 ML 999 ML IV (16:34)
[2025-05-22 16:35] VITALS: BP 112/62; PULSE 65; RESP 14; O2SAT 93
[2025-05-22 17:00] LABS: Hematocrit 29.1 % (37-47); Hemoglobin 9.4 g/dL (12.0-15.0); Immature Granulocytes Count 0.030 X10^3/uL (0.0-0.0); Mean Corp Hgb Conc 32.3 g/dL (32-36); Mean Corpuscular Volume 95.4 fL (81-99); Mean Platelet Vol. 10.4 fl (6.2-12.0); NRBC Flagged by Analyzer 0 % (0-5); Platelet Count 193 K/mm3 (150-450); RBC Distribution Width CV 13.2 % (11.6-14.6); RBC Distribution Width SD 45.8 fl (35.1-43.9); Red Blood Count 3.05 M/mm3 (4.2-5.4); White Blood Count 7.4 K/mm3 (4.4-11.0)
[2025-05-22 17:42] LABS: AST(SGOT) 28 U/L (<=31); Alanine Aminotransfer ALT/SGPT 7 U/L (<=34); Albumin, Serum 3.1 g/dL (3.4-4.8); Alkaline Phosphatase 67 U/L (35-104); Anion Gap 10 (5-15); BUN 28 mg/dL (4-19); BUN/Creat Ratio 20.0 RATIO (10-20); Calcium,Total 8.7 mg/dL (7.6-11.0); Carbon Dioxide 25.3 mmol/L (21.0-32.0); Chloride 102 mmol/L (98-108); Estimated Creatinine Clearance 35.59 ml/min (50-250); Globulin 3.3 g/dL (2.2-4.2); Glucose 173 mg/dL (70-99); Lipase 13 U/L (13-75); Potassium 4.6 mmol/L (3.3-5.1)
[2025-05-22 19:04] VITALS: BP 107/58; PULSE 60; RESP 19; O2SAT 90
[2025-05-22 19:04] LABS: Mucous, Urine 0 SEEN /hpf (<or=2+); Squamous Epithelial Cells - UA 0 SEEN /hpf (5-10)
[2025-05-22 19:08] VITALS: O2SAT 83; O2SAT 93
[2025-05-22 19:37] LABS: Color, Urine Amber (Yellow); Glucose, Dipstick Normal (Normal); Ketone-Dipstick Negative (Negative); Leukocyte Esterase-Dipstick 100 /ul (Negative); Nitrite-Dipstick Positive (Negative); Occult Blood-Urine 10 /ul (Negative); Protein-Dipstick 30 mg/dl (Negative); Specific Gravity, Urine 1.005 (1.002-1.030)
[2025-05-22 19:52] LABS: Urine Bilirubin Dipstick 6 mg/dL (Negative)
[2025-05-22 20:33] LABS: Red Blood Cells-Urine 0-5 SEEN /hpf (0-5)
[2025-05-22 20:53] VITALS: BP 111/56; PULSE 69; RESP 16; TEMP 36.9; O2SAT 94
== END 2025-05-22 21:13 | disposition home or self-care (01) ==
PROVIDERS: Emergency Provider Emergency Medicine; PCP Family Medicine; Visit Provider Emergency Medicine
DX: R10.9 Unspecified abdominal pain (principal); I13.0 Hypertensive heart and chronic kidney disease with heart failure and stage 1 through stage 4 chronic kidney disease, or unspecified chronic kidney disease; I50.22 Chronic systolic (congestive) heart failure; E11.22 Type 2 diabetes mellitus with diabetic chronic kidney disease; Z86.73 Personal history of transient ischemic attack (TIA), and cerebral infarction without residual deficits; N39.0 Urinary tract infection, site not specified; E78.00 Pure hypercholesterolemia, unspecified; I25.10 Atherosclerotic heart disease of native coronary artery without angina pectoris; N18.9 Chronic kidney disease, unspecified; R11.2 Nausea with vomiting, unspecified; F41.9 Anxiety disorder, unspecified; Z87.891 Personal history of nicotine dependence; E78.5 Hyperlipidemia, unspecified; I25.2 Old myocardial infarction; Z95.0 Presence of cardiac pacemaker; Z95.810 Presence of automatic (implantable) cardiac defibrillator; Z79.899 Other long term (current) drug therapy; Z79.82 Long term (current) use of aspirin; Z79.84 Long term (current) use of oral 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 drugs; Z79.02 Long term (current) use of antithrombotics/antiplatelets; K21.9 Gastro-esophageal reflux disease without esophagitis; Z95.5 Presence of coronary angioplasty implant and graft; Z98.41 Cataract extraction status, right eye; Z98.42 Cataract extraction status, left eye; Z90.49 Acquired absence of other specified parts of digestive tract
CPT/HCPCS: 74174; 80053; 81001; 83690; 85025; 87077; 87086; 87088; 87186; 96361; 96365; 96375; 99283; Q9967; A4216; J2405

== ENCOUNTER 2025-06-02 10:32 | Inpatient (IN) | payer MEDICARE, SELFPAY ==
[2025-06-02] VITALS (20 sets, daily range): BP systolic 76–117; BP diastolic 47–78; PULSE 64–132; RESP 12–28; TEMP 36.1–37.1; O2SAT 87–99; BMI 20.5; BMI 19.5
--- NOTE | 2025-06-02 10:55 | CT_ITS ---
PROCEDURE: CTA CHST, ABD, PEL W AND/OR WO 06/02/2025 REASON FOR EXAM: DYSPNEA, ABDOMINAL PAIN TECHNIQUE: CTA CHST, ABD, PEL W AND/OR WO coronal and Sagittal reconstruction series were provided. Additional MIP imaging was performed. One or more dose reduction techniques were used (e.g., Automated exposure control, adjustment of the mA and/or kV according to patient size, use of iterative reconstruction technique. CONTRAST: Isovue 370 VOLUME: 100 mL RADIATION DOSE SUMMARY: DLP: 524 mGycm COMPARISON: CTA abdomen pelvis 05/22/2025. FINDINGS: Visualization of visceral organs is limited by coronal and sagittal MIP imaging. CHEST: Hardware: Left chest wall cardiac conduction device. Mediastinum: Prominent mediastinal nodes, likely reactive. No traumatic thoracic aortic injury or mediastinal hematoma. Heart: The heart is normal in size without pericardial effusion. At least moderate coronary artery calcifications. Mild mixed plaque of the thoracic aorta. Lungs and Airways: The central airways are grossly patent. Increased ground- glass opacities within the right middle and lower lobes. Additional tree-in-bud opacities within the posterior left lower lobe. Persistent cystic changes within the bibasilar lungs, [id number]. No pleural effusion or pneumothorax. Bones: Thoracic spondylosis. No obvious large osseous lesion. ABDOMEN AND PELVIS: Stable multifocal ectasia of the infrarenal abdominal aorta with severe mixed atherosclerotic plaque. Calcific plaque of the origins of the celiac trunk, SMA, and POLLO as well as the bilateral renal arteries. Detailed evaluation is limited by coronal and sagittal MIP imaging. Colonic diverticulosis. CT/CTA Chst, Abd, Pel W and/or WO IMPRESSION: Visualization of visceral organs is limited by coronal and sagittal MIP imaging . CTA chest: 1. Increased ground-glass opacities within the right middle and lower lobes, as well as left lower lobe tree-in-bud opacities, compatible with pneumonitis/pneumonia. 2. No traumatic thoracic aortic injury. CTA abdomen pelvis: No change since prior examination. Reading Location: [id number]
--- NOTE | 2025-06-02 10:56 | EDS_ITS ---
HPI History of Present Illness Chief Complaint: Shortness of Breath Detail of Chief Complaint: Shortness of breath and abdominal pain Informant: patient and spouse/S.O. Narrative Narrative: Patient presents to the emergency department complaining of shortness of breath and abdominal pain. She was seen by her primary care physician 2 days ago and had a D-dimer obtained that was elevated. Apparently was scheduled to have an outpatient CTA of her chest to rule out PE however this morning checked her pulse ox and it was 82% so presents to the ER for evaluation. Patient denies any chest pain. She denies recent travel or surgery. She has had issues with blood in her stool for 6 to 8 weeks and has had upper and lower scopes. She continues complain of some abdominal pain and does have history of ischemic colitis. 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 Patient with prior history of stroke and has history of a pacer defibrillator. Currently on aspirin and used to be on Plavix but states she is not currently taking that. Patient also states she has had a hard time swallowing and nothing tastes good. Intermittent nausea and vomiting PFSH PFSH Medical History Back pain History of Holter monitoring History of stress test History of echocardiogram Cardiology follow-up encounter Ischemic colitis History of left heart catheterization History of mechanical ventilation Cardiogenic pulmonary edema Acute hypoxic respiratory failure Multiple lung nodules Major depressive disorder Left bundle branch block NSTEMI (non-ST elevated myocardial infarction) Diabetic peripheral vascular disease Diabetic nephropathy Chronic kidney disease (CKD) Bleeding ulcer Dyslipidemia Chronic systolic heart failure Pacemaker Congestive heart failure (CHF) Cerebral palsy Anxiety and depression Heart failure with reduced ejection fraction GERD (gastroesophageal reflux disease) Insomnia Transient ischemic attack AV node dysfunction Ischemic cardiomyopathy Presence of biventricular implantable cardioverter-defibrillator Ulcer Restless legs High cholesterol Anxiety Former smoker ICD (implantable cardioverter-defibrillator) in place Coronary artery disease CVA (cerebral vascular accident) PFO (patent foramen ovale) Cardiac resynchronization therapy defibrillator (HONING MACHINE OPERATOR TOOL-D) in place Myocarditis Hyperlipidemia Hypertension Home Medications ?Medication ?Instructions ?Recorded ?Last Taken ?Type clonazepam 1 mg tablet 1 mg PO QHS anxiety 11/18/14 06/01/25 History trazodone 50 mg tablet 50 mg PO DAILY Anxiety 11/1806/01/25 History aspirin 81 mg tablet,delayed 81 mg PO .COMPLEX heart 1 12/01/22 06/01/25 History release rosuvastatin 20 mg tablet 20 mg PO QHS cholesterol 12/1506/01/25 History furosemide 20 mg tablet 20 mg PO QDAY PRN for 2lb we ight 06/13/24 06/19/24 History gain escitalopram oxalate 5 mg tablet 5 mg PO QDAY Mood 06/1506/01/25 History polyethylene glycol 3350 17 17 g PO DAILY Constipation 11/28/24 06/01/25 History gram/dose oral powder (Miralax) lamotrigine 100 mg tablet 100 mg PO QDAY Anxiety 01/2306/02/25 History ferrous sulfate 325 mg (65 mg 325 mg PO QDAY Supplemen t 02/13/25 06/01/25 History iron) tablet (Feosol) linaclotide 145 mcg capsule 145 mcg PO QAM Constipatio n #60 02/14/25 Unknown Rx (Linzess) caps hyoscyamine sulfate 0.125 mg tablet 0.125 mg PO TID PA N dyspepsia #90 03/05/25 06/02/25 Rx tabs deutetrabenazine 6 mg 6 mg PO DAILY involuntary Mo vements 04/19/25 04/20/25 08:50 History tablet,extended release 24 hr (Austedo XR) oxycodone 5 mg tablet 5 mg PO Q6H PRN PRN Pain Sco re 04/30/25 Unknown Rx 6-10 7 days #28 tabs pantoprazole 40 mg tablet,delayed 40 mg PO DAILY 30 da ys #30 tabs 04/30/25 06/01/25 Rx release baclofen 5 mg tablet 5 mg PO DAILY SPASCITY 05/2906/01/25 History docusate sodium 100 mg capsule 100 mg PO DAILY CONSTIP ATION 05/29/25 Unknown History metformin 500 mg tablet 500 mg PO BID Diabetes 05/2906/01/25 History ondansetron 4 mg disintegrating 4 mg PO Q8H #30 tabs 0 05/30/25 06/01/25 Rx tablet phenazopyridine 100 mg tablet 100 mg PO TID PRN PRN pa in 06/02/25 06/02/25 History Allergy/AdvReac Type Severity Reaction Status Date / Time No Known Allergies Allergy Verified 06/02/25 10:33 Family History Father Heart disease Myocardial infarction Mother Anxiety and depression Suicide and self-inflicted injury from suicide age 52. Surgical History History of cardiac catheterization Presence of stent in coronary artery History of bilateral cataract extraction History of skin surgery S/P colon polypectomy History of cardiac defibrillator placement History of cholecystectomy History of coronary artery stent placement Social History household members: spouse Smoking Status: Former smoker how long ago did patient quit smokin-1.5 ppd from teen until quit in 2008. alcohol intake: never substance use type: does not use caffeine: Yes seatbelt use: always do you feel safe at home: Yes additional social history: - Cuate FUENTES ROS ED Review of Systems ROS Unobtainable: other Constitutional Constitutional ED: Reports lethargy; Denies chills, fever(s), sweats or weight loss Eyes Eyes: Denies blurry vision, change in vision or diplopia ENT ENT ED: Denies rhinorrhea or sore throat Cardiovascular Cardiovascular: Reports chest pain and racing heartbeat; Denies orthopnea Respiratory/Chest Respiratory/Chest: Reports cough, dyspnea and dyspnea on exertion; Denies orthopnea or sputum Gastrointestinal Gastrointestinal: Reports abdominal pain, nausea, vomiting and other Details: Black stool ; Denies diarrhea Genitourinary Genitourinary ED: Denies dysuria, hematuria or urinary frequency Musculoskeletal Musculoskeletal: Denies arthralgias, back pain, myalgias or neck pain Integumentary Denies abscess, Abrasions or rash Neurologic Neurologic: Denies headache(s) or weakness Psychiatric Psychiatric: Denies anxiety, depression or suicidal thoughts Endocrine Endocrinology: Denies polydipsia, polyphagia or polyuria Hematologic/Lymphatic Hematologic/Lymphatic: Denies easy bleeding, easy bruising or lymphadenopathy Allergic/Immunologic Allergic/Immunologic ED: Denies mouth swelling, tongue swelling or urticaria EXAM Physical Exam Const Vital Signs: 06/02/25 10:33 06/02/25 10:35 06/02/25 10:35 Temperature 97.0 F L 97.5 F L Temperature Source Temporal Oral Pulse Rate 102 H 87 Respiratory Rate 18 20 H Respiratory Effort Short of Breath Respiratory Depth Normal Respiratory Pattern Normal Blood Pressure 76/59 L 114/61 Blood Pressure Mean 64 78 Pulse Ox 93 95 Oxygen Delivery Method Room Air Room Air Nasal Cannula Oxygen Flow Rate (L/min) 2 06/02/25 11:35 06/02/25 11:35 Temperature 98.7 F Temperature Source Oral Pulse Rate 78 78 Respiratory Rate 18 18 Respiratory Effort Respiratory Depth Respiratory Pattern Blood Pressure 104/55 L 104/78 Blood Pressure Mean 71 86 Pulse Ox 95 94 Oxygen Delivery Method Nasal Cannula Nasal Cannula Oxygen Flow Rate (L/min) 2 2 MDM MDM MDM Narrative Medical decision making narrative: Patient presents with dyspnea and cough ongoing for 3 weeks. 2 days ago had COVID testing at home that was negative. Had blood work done in the office and had an elevated D-dimer so presents for CTA of her chest. states her O2 sat at home was 82% this morning and she typically does not use home O2. Patient denies any chest pain. In the differential would be PE versus pneumonia or less likely pneumothorax. IV line established. CBC with differential obtained showed white count of 9.0 with hemoglobin 11.2 and platelet count of 230. Chemistries unremarkable. Lactate normal at 1.3. LFTs were normal. BT CASING RUNNING MACHINE TENDER was elevated 948. Lipase was normal. CTA of chest abdomen pelvis obtained showed inflammatory changes in the right middle and lower lobes as well as left lower lobe concerning for pneumonitis/pneumonia. Patient did have blood cultures ordered. She was started on Rocephin and Zithromax IV. I did ambulate patient in the department and her O2 sat dropped down to 86% on room air. Case will be discussed with hospitalist to evaluate patient for admission. Patient also has been complaining of vomiting when attempting to eat and states nothing tastes good. 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 Lab Data Attestation: I reviewed the patient's lab results. Labs: Laboratory Results - last 24 hr 06/02/25 06/02/25 10:45 11:08 WBC 9.0 RBC 3.66 L Hgb 11.2 L Hct 34.6 L MCV 94.5 MCH 30.6 MCHC 32.4 RDW Std Deviation 46.7 H RDW Coeff of Edita 13.4 Plt Count 230 MPV 10.0 Sodium 137 Potassium 3.8 Chloride 102 Carbon Dioxide 24.0 Anion Gap 11 BUN 19 Creatinine 1.16 Estim Creat Clear Calc 42.38 L Est GFR (MDRD) Non-Af 50 L BUN/Creatinine Ratio 16.6 Glucose 140 H Lactic Acid 1.3 Calcium 8.7 Total Bilirubin 0.27 AST 24 ALT 6 Alkaline Phosphatase 70 NT pro BNP II 948 H Total Protein 6.9 Albumin 3.1 L Globulin 3.8 Albumin/Globulin Ratio 0.8 L Lipase 15 Radiography Diagnostic Testing: Clinical Impression(s) from Imaging Studies Chest/Abdomen/Pelvis CTA 06/02/25 10:55 IMPRESSION: Visualization of visceral organs is limited by coronal and sagittal MIP imaging. CTA chest: 1. Increased ground-glass opacities within the right middle and lower lobes, as well as left lower lobe tree-in-bud opacities, compatible with pneumonitis/pneumonia. 2. No traumatic thoracic aortic injury. CTA abdomen pelvis: No change since prior examination. Reading Location: [facility] EKG Initial EKG: Attestation: I personally reviewed and interpreted this EKG as follows: Comments: Paced rhythm with ventricular rate of 81 bpm Discharge Plan Triage Chief Complaint: Shortness of Breath ED Provider: Bossman Sanders Dx/Rx/DC Orders Clinical Impression: Dyspnea, Hypoxia, Pneumonia Prescriptions: No Action furosemide 20 mg tablet 20 mg PO QDAY PRN (Reason: for 2lb weight gain) metformin 500 mg tablet 500 mg PO BID lamotrigine 100 mg tablet 100 mg PO QDAY escitalopram oxalate 5 mg tablet 5 mg PO QDAY polyethylene glycol 3350 [Miralax] 17 gram/dose powder 17 g PO DAILY docusate sodium 100 mg capsule 100 mg PO DAILY Patient Comments: stopped 05/30/25 baclofen 5 mg tablet 5 mg PO DAILY Patient Comments: PRESCRIPTION FOR 4 TIMES DAILY ferrous sulfate [Feosol] 325 mg (65 mg iron) tablet 325 mg PO QDAY Linzess 145 mcg capsule 145 mcg PO QAM Qty: 60 2RF Patient Comments: stopped 05/30/25 ondansetron 4 mg tablet,disintegrating 4 mg PO Q8H Qty: 30 3RF trazodone 50 MG tablet 50 mg PO DAILY clonazepam 1 MG tablet 1 mg PO QHS aspirin 81 mg tablet,delayed release (DR/EC) 81 mg PO .COMPLEX Rx Instructions: 81 mg orally EVERY OTHER DAY; rosuvastatin 20 mg tablet 20 mg PO QHS pantoprazole 40 mg Tablet,Delayed Release (Dr/Ec) 40 mg PO DAILY 30 Days Qty: 30 0RF oxycodone 5 mg Tablet 5 mg PO Q6H PRN PRN (Reason: Pain Score 6-10) 7 Days Qty: 28 0RF Austedo XR 6 mg tablet extended release 24 hr 6 mg PO DAILY Patient Comments: stopped 06/02/25 phenazopyridine 100 mg tablet 100 mg PO TID PRN PRN (Reason: pain) hyoscyamine sulfate 0.125 mg tablet 0.125 mg PO TID PRN (Reason: dyspepsia) Qty: 90 2RF Primary Care Provider: Marci Nuñez Referrals: Marci Nuñez DO [Primary Care Provider] - Print Language: Greek Disposition Disposition: Acute Care Hospital [facility]
[2025-06-02 11:06] LABS: Hematocrit 34.6 % (37-47); Hemoglobin 11.2 g/dL (12.0-15.0); Mean Corp Hgb Conc 32.4 g/dL (32-36); Mean Corpuscular Volume 94.5 fL (81-99); Mean Platelet Vol. 10.0 fl (6.2-12.0); Platelet Count 230 K/mm3 (150-450); RBC Distribution Width CV 13.4 % (11.6-14.6); RBC Distribution Width SD 46.7 fl (35.1-43.9); Red Blood Count 3.66 M/mm3 (4.2-5.4); White Blood Count 9.0 K/mm3 (4.4-11.0)
--- NOTE | 2025-06-02 11:28 | EKG12_ITS ---
Test Reason : SOB Blood Pressure : */* mmHG Vent. Rate : 81 BPM Atrial Rate : 81 BPM P-R Int : 148 ms QRS Dur : 114 ms QT Int : 426 ms P-R-T Axes : 26 106 68 degrees QTcB Int : 494 ms Poor data quality, interpretation may be adversely affected Atrial-sensed ventricular-paced rhythm with occasional Premature ventricular complexes Biventricular pacemaker detected Abnormal ECG Confirmed by ALEXANDER WINTER MD ([id number]), restaurant expeditor CRESCENCIO BERRY ([id number]) on 06/04/2025 11:31:10 AM Referred By: Confirmed By: ALEXANDER WINTER MD
[2025-06-02 11:34] LABS: AST(SGOT) 24 U/L (<=31); Alanine Aminotransfer ALT/SGPT 6 U/L (<=34); Albumin, Serum 3.1 g/dL (3.4-4.8); Alkaline Phosphatase 70 U/L (35-104); Anion Gap 11 (5-15); BUN 19 mg/dL (4-19); BUN/Creat Ratio 16.6 RATIO (10-20); Calcium,Total 8.7 mg/dL (7.6-11.0); Carbon Dioxide 24.0 mmol/L (21.0-32.0); Chloride 102 mmol/L (98-108); Estimated Creatinine Clearance 42.38 ml/min (50-250); Globulin 3.8 g/dL (2.2-4.2); Glucose 140 mg/dL (70-99); Lipase 15 U/L (13-75); Potassium 3.8 mmol/L (3.3-5.1)
[2025-06-02 11:36] LABS: Pro- Brain NATRIURETIC PEPTIDE 948 pg/mL (<=900)
--- OUTSIDE RECORDS SUMMARY | 2025-06-02 11:52 | XMS RPT_ITS | CCD ---
Author Organization [facility] Care Team Providers Care Retail Office Manager Name Role Phone DR CHELA BHANDARI DO Primary Care Physician [phone] Jesus Manuel Freitas DO Primary Care Provider Jesus Manuel Freitas DO Primary Care Provider Jesus Manuel Freitas DO Primary Care Provider DR CHELA BHANDARI DO Primary Care Physician [phone] DR CHELA BHANDARI DO Primary Care Physician [phone] Jesus Manuel Freitas DO Primary Care Provider Odilon IMPROVEMENT NURSE.NIRMALA, Kailyn K Unavailable ADRIENNE BYERS DO Primary Care Physician Gilbert IMPROVEMENT NURSE.NIRMALA, Gissell Unavailable Jesus Manuel Freitas DO Primary Care Provider Odilon IMPROVEMENT NURSE.CURRICULUM DIRECTOR, Kailyn K Unavailable Gilbert IMPROVEMENT NURSE.NIRMALA, Gissell Unavailable Dr. Adrienne Byers Primary Care Provider Dr. Alexsandra Vela Attending Provider Dr. Jose Turk Attending Provider Dr. Uday Orosco Emergency Provider Dr. Tony Corona Admit Provider Unavailabl e Dr. Tony Corona Other Provider Unavailabl e Dr. Ben Johnson Attending Provider Dr. Ben Johnson Other Provider Dr. Adrienne Byers Referring Provider [phone] Brisa Jennings Attending Provider Unavailable Dr. David Best Emergency Provider Dr. Jaci Greco Attending Provider Dr. Tony Corona Referring Provider Unavail able Dr. Jaci Greco Admit Provider Dr. Jaci Greco Other Provider Dr. Tony Mayer Attending Provider Unavailable Dr. Tony Mayer Other Provider Unavailable Dr. Camacho Aguilar Attending Provider Dr. Camacho Aguilar Other Provider Dr. Adreinne Byers Primary Care Provider Dr. Adrienne Byers Referring Provider Dr. Danish Tavarez Attending Provider Dr. Adrienne Byers Primary Care Provider Dr. Jose Jaime Emergency Provider Dr. Ben Johnson Admit Provider Dr. Ben Johnson Attending Provider Dr. Ben Johnson Other Provider Dr. Heike Horta Attending Provider Dr. Heike Horta Other Provider Levy, Dr. Torrez Attending Provider Dr. Yoandy Thakkar Other Provider Dr. Ganesh Kiran Attending Provider Dr. Ganesh Kiran Other Provider Dr. Adrienne Christine Attending Provider [phone] Name: MANSI CARO Rep #:[id number] : 1955 68 From: Talat Cameron PCP: Dr. Adrienne Byers, DO Status:ADM IN Location: [place] [address] Documented by User: Talat Cameron 10/03/23 11:16 [...] 500 Mg Tablet PO 500 mg DAILYCM VERONA Administration Metoprolol Succinate 12.5 mg 10/02/23 10:00 10/03/23 09:15 Metoprolol(Xl)Succ 25 Mg Tablet PO 12.5 mg DAILY VERONA Administration Protocol Multivitamins 1 tablet 10/02/23 08:00 10/03/23 09:13 Multivitamins,Therapeutic Tablet PO 1 tablet DAILYCM VERONA Administration Multivitamins 1 cap 10/02/23 08:00 10/03/23 09:13 Vitamin B Comp W-C Capsule PO 1 cap DAILYCM [facility] Administration Nutritional Formula (Lactose Free) 120 ml [...] 25 Mg Tablet PO MOWEFR [facility] Tolterodine Tartrate 2 mg 10/01/23 15:17 Tolterodine Tartrate 2 Mg Cap.Sa PO DAILY PRN URINARY RETENTION Trazodone HCl 50 mg 10/01/23 15:17 10/02/23 21:38 Trazodone 50 Mg Tablet PO 50 mg DAILY PRN Administration ANXIETY Tuberculin PPD 0.1 ml 10/09/23 10:00 Tuberculin,Purif.Prot.Deriv. 50 Tu/Ml Vial ID 10/09/23 10:01 X1 ONE Problem List (Updated 10/01/23 @ 16:[address] Alonso Marte MD) Heart failure with reduced ejection fraction [...] <Electronically signed by Talat Cameron> Talat Cameron Cosigner Signature (if applicable): 10/03/23 1349 <Electronically signed by Alonso Marte MD> CC: ~ Signed [facility] Work Phone: 1([phone]) 743-893311-10-2023 History and physical note Author Alonso Marte [facility] October 01, 2023 4:18pm Note Date/Time October 01, 2023 4:07pm [facility] Medical Records Department [address] [place] [address] [place] [address] History & Physical Exam 10/01/23 1558 MR#: [id number] Acct: [id number] Name: MANSI CARO Rep #:[id number] : 1955 68 From: Alonso Marte MD PCP: Dr. Adrienne Byers, DO Status:ADM IN Location: [place] [address] HPI - General General Date of Admission: 10/01/23 Date of Service: 10/01/23 Chief Complaint: Here for rehabilitation. HPI Narrative 09/28/2023 MANSI CARO, is a 68 Female who presents to [facility] Emergency Department with neurologic signs/symptoms. Presents with [...] strengthening, prior to discharge home with . [facility] Medical History (Updated 10/01/23 @ 16:[address] Alonso Marte MD) Anxiety AV node dysfunction Cardiac resynchronization therapy defibrillator (CORNICE UPHOLSTERER-D) in place Congestive heart failure (CHF) Coronary [...] EDEMA 09/28/23 [History Last Taken Unknown] vitamin C20-njcdw acid 1 tab PO DAILY vitamin 09/28/23 [...] Depression - Citalopram 20mg qhs, stable chronic superintendent terminal use, GDR not recommended. * Anxiety - Clonazepam 1mg qhs, stable chronic skilled nursing use, GDR not recommended. * Diabetes Mellitus [...] - Trazodone 50mg qhs prn, stable chronic skilled nursing use, GDR not recommended. * Leg cramp - Vitamin B complex 1 cap daily. 10/01/23 1618 <Electronically signed by Alonso Marte MD> Cosigner Signature (if applicable): CC: Dr. Adrienne Byers DO; Dr. Alonso Marte MD~ Signed [facility] Work Phone: [phone] 234-598311-10-2023 Discharge summary Author Ben Paulinoessentia healthesther [facility] October 01, 2023 11:57am Note Date/Time October 01, 2023 11:57am [facility] Medical Records Department [address] [place] [address] Transfer to [facility] MR#: [id number] Acct: [id number] Name: MANSI CARO Rep #:[id number] : 1955 68 From: Ben Johnson DO PCP: Dr. Adrienne Byers DO Status:ADM IN Certification of patient admission REQUIRED AT TIME OF ADMISSION. I CERTIFY THAT POST-HOSPITAL ECF SERVICES ARE REQUIRED TO BE GIVEN ON AN IN-PATIENT BASIS BECAUSE OF THE ABOVE NAMED PATIENT'S NEED FOR CUSTODIAL CARE ON A CONTINUING BASIS FOR THE CONDITION(S) FOR WHICH HE/SHE WAS RECEIVING IN-PATIENT HOSPITAL SERVICES PRIOR TO HIS/HER TRANSFER TO THE ECF. 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 Hx of word finding difficulty after [...] patient reports may be inpatient rehab at [facility]. Discharge Plan Admission Admit Date/Time: 09/28/23 22:22 [...] water retention) Patient Comments: TAKING NEEDED vitamin C16-osrwc acid 1 tab PO DAILY pantoprazole 40 MG tablet 40 mg PO QHS Patient Comments: decrease stomach acid- pt states she takes prn Changed aspirin 81 mg tablet,delayed release (DR/EC) 81 mg PO 1XD Qty: 1 0RF Patient Comments: TAKE 1 TABLET BY MOUTH EVERY OTHER DAY Referrals / Follow Up: Chela Bhandari DO [Non-Staff] - Adrienne Byers DO [Primary Care Provider] - Disposition Disposition (needs filled in before D/C Order can be placed): Home, Self Care 10/01/23 1157 <Electronically signed by Ben Johnson DO> Cosigner Signature (if applicable): CC: Dr. Tony Corona DO; Dr. Adrienne Byers DO ~ [facility] Work Phone: [phone]) 530-486611-09-2023 Progress note Author Ben Johnson [facility] September 30, 2023 5:30pm Note Date/Time September 30, 2023 5 :30pm [facility] Medical Records Department [address] [place] [address] Progress Note - Hospitalist 09/30/23 1726 MR#: [id number] Acct: [id number] Name: MANSI CARO Rep #:[id number] : 1955 68 From: Ben Johnson DO PCP: Dr. Adrienne Byers, DO Status:ADM IN Location: [place] [address] Reason for Visit Reason for Visit: Diagnoses [...] 09/29/23 14:29 AG (Rec: 09/29/23 14:29 AG [id number]) Nutrition Malnutrition Evidence of Malnutrition Exists Yes [...] Physician: Adrienne Byers Performed By: Estefany Ovalle T Brain MRI 09/30/23 09:00 IMPRESSION: No evidence [...] times a day will be given with Drizly Total clinical time spent by myself addressing patient's medical issues, reviewing all of her data, and collaborating with patient's care team: 35-minutes Charges/Coding Visit Charges Inpatient E&M: 37929 Subs Hosp L2 09/30/23 1730 <Electronically signed by Ben Johnson DO> Cosigner Signature (if applicable): CC: ~ Signed [facility] Work Phone: [phone]) 233-870711-09-2023 Discharge summary Author Ben Johnson [facility] September 30, 2023 11:55am Note Date/Time September 30, 2023 1 1:52am [facility] Medical Records Department [address] [place] [address] Instructions for Home/Discharge Instructions 09/30/23 1151 MR#: [id number] Acct: [id number] Name: MANSI CARO Rep #:[id number] : 1955 68 From: Ben Johnson DO PCP: Dr. Adrienne Byers, Status:ADM IN Discharge Instructions Diet Discharge Diet: [...] water retention) Patient Comments: TAKING NEEDED vitamin L61-kcpta acid 1 tab PO DAILY pantoprazole 40 MG tablet 40 mg PO QHS Patient Comments: decrease stomach acid- pt states she takes prn Changed aspirin 81 mg tablet,delayed release (DR/EC) 81 mg PO 1XD Qty: 1 0RF Patient Comments: TAKE 1 TABLET BY MOUTH EVERY OTHER DAY Referrals / Follow Up: Chela Bhandari DO [Non-Staff] - Adrienne Byers DO [Primary Care Provider] - Disposition Disposition (needs filled in before D/C Order can be placed): Home, Self Care 09/30/23 1155<Electronically signed by Ben Johnson DO>Ben Johnson DO CC: Dr. Tony Corona DO; Dr. Adrienne Byers DO ~ Signed [facility] Work Phone: 1(729) 951-771111-08-2023 Progress note Author Ben Pualinoessentia healthesther [facility] September 29, 2023 5:39pm Note Date/Time September 29, 2023 5 :25pm [facility] Medical Records Department [address] [place] [address] Progress Note - Hospitalist 09/29/23 1717 MR#: [id number] Acct: [id number] Name: MANSI CARO Rep #:[id number] : 1955 68 From: Ben Johnson DO PCP: Dr. Adrienne Byers DO Status:ADM IN Location: [place] [address] Reason for Visit Reason for Visit: Diagnoses [...] Document 09/29/23 14:29 AG (Rec: 09/29/23 14:29 [id number]) Nutrition Malnutrition Evidence of Malnutrition Exists Yes [...] (Auto) 40.8 L, Lymph % (Auto) 49.7 H,[place] % (Auto) 7.6, Eos % (Auto) 1.0, [...] Clarity Clear, Urine pH 8.0, Ur Specific [place] 1.010, Urine Protein Negative, Urine Glucose (UA) [...] Signed: Jasper Ochoa MD at 20:31 EST Reading Location ID and State: [facility] Tel , Service support , Head/Neck CTA 09/28/23 20:12 IMPRESSION: 1. [...] team: 35-minute Charges/Coding Visit Charges Inpatient E&M: 13700 Subs Hosp L2 09/29/23 1009 <Electronically signed by Ben Johnson DO> Cosigner Signature (if applicable): CC: ~ Signed [facility] Work Phone: [phone]) 705-649411-08-2023 History and physical note Author Tony Mejia [facility] September 29, 2023 7:10am Note Date/Time September 28, 2023 1 0:22pm [facility] Medical Records Department [address] [place] [address] H&P Exam - Hospitalist 09/28/230 MR#: [id number] Acct: [id number] Name: MANSI CARO Rep #:[id number] : 1955 68 From: Tony Williamson DO PCP: Dr. Adrienne Byers, Status:ADM IN Location: [place] [address] HPI - General General Date of Admission: 09/28/23 Date of Service: 09/28/23 Chief Complaint: Fragmented sentences and confusion HPI Narrative MANSI CARO, is a 68 F with a past medical history of essential hypertension, hyperlipidemia, remote history of patent foramen ovale, history of CVA in 2008, recent history of a CVA 1 year ago with residual deficit causing spastic right lower extremity; on Plavix, history of coronary artery disease status post stentplacement, diabetes mellitus type 2 of unknown control, history of myocarditis, history of cardiac resynchronization therapy defibrillator in place, depression and osteoarthritis who presents to [facility] ER complaining of strokelike symptoms with fragmented [...] that was negative for Parkinson's disease at [facility], where she normally receives her care. She denies fever, chills, nausea, vomiting, diarrhea or constipation. Stroke alert was called in the ER with patient outside the window for tPA and already improving clinically with suspicion for a possible CVA due to her PFO and [facility] that is expected to be greater than 48 hours. [facility] Medical History Anxiety Cardiac resynchronization therapy defibrillator (CORNICE UPHOLSTERER-D) in place Congestive heart failure (CHF) Coronary [...] EDEMA 09/28/23 [History Last Taken Unknown] vitamin B32-kxnsp acid 1 tab PO DAILY vitamin 09/28/23 [...] Signs Vital Signs Vital Signs: 09/28/23 20:00 09/28/23 20:04 09/28/23 [...] place andoriented to time Coordination / Balance: hmcdbs-lq-fvch test normal and sfdl-sn-pabn test normal Speech: speech normal Motor Exam: [...] (Auto) 40.8 L, Lymph % (Auto) 49.7 H,[place] % (Auto) 7.6, Eos % (Auto) 1.0, [...] Clarity Clear, Urine pH 8.0, Ur Specific [place] 1.010, Urine Protein Negative, Urine Glucose (UA) [...] 55 minutes. Charges/Coding Visit Charges Inpatient E&M: 70763 Init Hosp L2 09/29/23 0710 <Electronically signed by Tony Corona DO> Cosigner Signature (if applicable): CC: Dr. Tony Corona DO; Dr. Adrienne Byers DO~ Signed [facility] Work Phone: [phone] Discharge summary Author Uday Orosco [facility] September 28, 2023 10:10pm Note Date/Time September 28, 2023 8 :55pm [facility] Medical Records Department [address] [place] [address] Emergency Department Summary 09/28/23 MR#: [id number] Acct: [id number] Name: MANSI CARO Rep #:[id number] : 1955 68 From: Uday Orosco DO PCP: Dr. Adrienne Byers DO Status:ADM IN Location: [address] History of Present Illness Chief Complaint: [...] spastic right lowerextremity. Patient is on Plavix. [facility] Medical History Cardiac resynchronization therapy defibrillator (CORNICE UPHOLSTERER-D) in place Diabetes mellitus Hyperlipidemia Hypertension Myocarditis PFO (patent foramen ovale) Home Medications amlodipine 5 mg-olmesartan 20 mg tablet (George) 0.5 udtab PO QODAY 11/18/14 [History Last [...] EDEMA 09/28/23 [History Last Taken Unknown] vitamin E38-nxqhm acid PO 09/28/23 [History Last Taken Unknown] [...] 40.8 L Lymph % (Auto) 49.7 H [place] % (Auto) 7.6 Eos % (Auto) 1.0 [...] Clarity Clear Urine pH 8.0 Ur Specific [place] 1.010 Urine Protein Negative Urine Glucose (UA) [...] your Primary Care Provider. Call [facility] ([phone]) or report to the closest Emergency Room. Call 911 if necessary. 09/28/232209 <Electronically signed by Uday Orosco DO> Cosigner Signature (if applicable): CC: Dr. Adrienne Byers DO ~ Signed [facility] Work Phone: [phone]) [phone] Discharge summary Author Uday Orosco [facility] September 28, 2023 10:10pm Note Date/Time September 28, 2023 8 :55pm [facility] Medical Records Department [address] [place] [address] Emergency Department Summary 09/28/23 MR#: [id number] Acct: [id number] Name: MANSI CARO Rep #:[id number] : 1955 68 From: Uday Orosco DO PCP: Dr. Adrienne Byers DO Status:ADM IN Location: [place] [address] HPI History of Present Illness Chief Complaint: Neuro [...] spastic right lowerextremity. Patient is on Plavix. [facility] Medical History Cardiac resynchronization therapy defibrillator (CORNICE UPHOLSTERER-D) in place Diabetes mellitus Hyperlipidemia Hypertension Myocarditis PFO (patent foramen ovale) Home Medications amlodipine 5 mg-olmesartan 20 mg tablet (George) 0.5 udtab PO QODAY 11/18/14 [History Last [...] EDEMA 09/28/23 [History Last Taken Unknown] vitamin H82-qpfzc acid PO 09/28/23 [History Last Taken Unknown] [...] 40.8 L Lymph % (Auto) 49.7 H [place] % (Auto) 7.6 Eos % (Auto) 1.0 [...] Clarity Clear Urine pH 8.0 Ur Specific [place] 1.010 Urine Protein Negative Urine Glucose (UA) [...] your Primary Care Provider. Call [facility] ([phone]) or report to the closest Emergency Room. Call 911 if necessary. 09/28/232209 <Electronically signed by Uday Orosco DO> Cosigner Signature (if applicable): CC: Dr. Adrienne Byers DO ~ Signed [facility] Work Phone: [phone]) 688-164810-31-2023 History of Present illness Narrative* Nirmal Carpio, [...] 1010 PATIENT DISCHARGED TO: Ambulatory patient, left DE department area. A Diagnostic radioactive procedure has taken place, with no further precautions necessary other than routine body substance precautions. More information regarding radiation safety can be found usingthis link: [email or web address] 20Diagnostic%20Nuclear%20Medicine%20Procedures.pdf SIGNATURE: RT [place](R) PATIENT NAME: Mansi Caro DATE: September 21, 2023 TIME: 10:00 AM PAGER/CONTACT #: [facility] Note ORIGINAL EXAMINATION: CT OF [...] Sign Date: 09/07/2023 10:17:27 AM [facility] Note . MICRO - Microbiology PROCEDURE: Urine [...] Locations *1: This test was performed at: [facility], [address] [place] [address], [facility] , [facility])08-04-2023 Hospital Discharge instructions Patient Education 08/04/2023 12:31:44 [...] animal will probably be confined with its owner spa director for 10 days. If the animal does [...] bats may notbe noticed, especially by children. 2991-7222 [employer]. [address] [place] [address], [place] [id number]. All rights reserved. This information is not intended as a substitute for professional medical care. Always follow yourhealthcare professional's instructions. 08/04/2023 12:31:41 9- AO ED Rabies Follow-up Vaccination [facility] Rabies Follow-Up Vaccination Information Sheet SUMMARY After [...] your follow-up rabies vaccinations. OR Call the [facility] at to schedule your follow-up vaccination appointments. Hours: 8a-4:30p, Wednesday through Wednesday OR Call [facility] to schedule your follow-up vaccination appointments. Follow Up Care 08/04/2023 11:57:19 With:ADRIENNE BYERS Address: [address] [facility] [place] [address]- [phone] Business (1) When:2-4 days [facility] 09-13-2023 Emergency department Discharge summary Discharge Instructions Thank you for allowing [facility] to assist you with your healthcare needs. The following is importantdischarge information regarding your hospital visit. Diagnosis from Today's Visit Bat exposure What to Do Next Instructions from Your Care Team No qualifying data available. Post Acute Orders No qualifying data available. You Need to Schedule the Following Appointments Follow Up with ADRIENNE BYERS When Within 2-4 days Where: [address] [facility] [place] [address]- [phone] Business (1) Allergies NKA Immunizations This Visit [...] animal will probably be confined with its owner spa director for 10 days. If the animal does [...] bats may notbe noticed, especially by children. 6705-2070 [employer]. [address] [place] [address]. All rights reserved. This information is not intended as a substitute for professional medical care. Always follow yourhealthcare professional's instructions. [facility] Rabies Follow-Up Vaccination Information Sheet SUMMARY After [...] your follow-up rabies vaccinations. OR Call the [facility] at to schedule your follow-up vaccination appointments. Hours: 8a-4:30p, Wednesday through Wednesday OR Call [facility] to schedule your follow-up vaccination appointments. Additional Information VACCINATE! IT SAVES LIVES! Members of the community who have not yet received the COVID-19 vaccine and would like to receive it can visit one of [facility] vaccine clinics. There are many vaccine clinic locations within the [facility]. For locations and available times, please visit www.gettheshot.coronavirus.[place].gov/. It is important to note that some COVID mobile vaccine clinics are held outdoors and may be canceled in rainy or stormy conditions. To learn more about pediatric vaccinations (ages 5-11), we invite you to visit the [facility] webpage. https://www.[facility].org/pages/5484-Ivbdh-Dvnrhxhytyr-Bahdryzeey-Umnxt-Isu stions.htmlTo learn more about the COVID-19 vaccine, we invite you to visit the CDC website for a list of frequently asked questions. https://www.cdc.gov/coronavirus/2019-ncov/vaccines/faq.html [facility] Patient Portal Access Instructions: Stay connected with your healthcare team and access your personal medical information anytime with the [facility] Patient Portal. If you would like a full copy of your medical records please contact the [facility] Medical Records Department Wednesday through Wednesday between 8a.m. and 4:30p.m. Please follow the directions below to access the portal: 1.Access the email account you provided upon registration to the [facility].2.Look for an invitation email from [facility].3.Open the email and access the invitation link: Accept Invitation to [facility].Fill in the required tirado to create your account. Sign into www.[employer] with your username and password that you [...] you will allow to register on the [facility] Patient Portal for access to your information. You can also access the [facility] Patient Portal on the beqom. Simply click on Health Records under [employer] and then click on the [employer] logo. HOW TO SAFELY DISPOSE OF PRESCRIPTION [...] Call your local pharmacy or go to http://bit.allyn/8F3Hl6r to find one close to you.3.Make use of household items: Use cat litter or old coffee grounds to dispose medications if other options arenot available. Mix your drugs with these household products, seal them in an airtight container andthrow it into the garbage. Call [facility]: [phone] to be sure your drugs can be [...] aware that I should contact my doctor. Patient/Nutritional Services Cook Signature: Date/Time: Relationship to Patient: Witness Name/Signature: Date/Time: [facility]08-10-2023 History of Present illness Narrative * Syd Ramirez MD - 07/01/2023 9:03 AM EDT [facility] - FOLLOW UP EVALUATION Jesus Manuel Freitas DO [address] [facility] [address] Dear Jesus Manuel Freitas DO: I had the pleasure of seeing Ms. Caro for follow-up today. As you know she is a 68 year old right-handed female with a history of left hand tremor since 2021. She is seen alone. We had a visit using: [employer] I have communicated my name and active licensure. The patient's identity and physical location wereverified at the time of this visit. Either the patient or their legal outside sales account representative has been informed of the risks and benefits of -- and alternatives to -- treatment through a remote evaluation andconsents to proceed with the evaluation remotely. I have communicated my name and active licensure. The patient's identity and physical location wereverified at the time of this visit. Either the patient or their legal outside sales account representative has been informed of the risks and [...] Office Visit from 05/12/2023 in Rehab Medicine [facility] from 10/12/2022 in Neurological [facility] T Score 32.4 39.8 [...] and is willing to rechallenge HERVE RN Current Outpatient Medications Medication Sig baclofen [...] Awake, alert, oriented. Able to connect to [employer] platform and provide an accurate history Right [...] hesitate to call with any questions. Sincerely, Syd Ramirez MD Associate Staff Movement [facility] documented in this encounterHolmes County [facility]07-19-2023 Note* Exam Date Time Procedure Performing Provider Status 06/09/23 12:53 PM Echocardiogram, Adult (AOH) Auth (Verified) [facility] 06-26-2023 Miscellaneous Notes* Telephone Encounter - Cheri Gill RN - 05/17/2023 3:27 PM EDT This was approved Called left message on identified VM of Beatrice that this was approved and to check with [facility] pharmacy Called [facility] pharmacy, talked with Orquidea and then Rubina [...] medication on Wed., 05/19/23 documented in this encounterHolmes County [facility]06-26-2023 Miscellaneous Notes* Telephone Encounter - Cheri Gill RN - 05/17/2023 11:16 AM EDT Images from the original note were not included. * Telephone Encounter - Janee Argueta RN - 05/14/2023 10:48 AM EDT A PA has been submitted via [employer] Company Name:[employer] Phone Number: Patient ID number: [id number] Medication: Baclofen Dosage: 5mg Rios:[id number] PA Janee Argueta RN documented in this encounterHolmes County [facility]06-23-2023 Miscellaneous Notes* Telephone Encounter - Janee Argueta RN - 05/14/2023 11:17 AM EDT PA submitted via [employer]. Janee Argueta RN * Telephone Encounter - Ghazala Mccord MD - 05/14/2023 8:56 AM EDT I'll forward to Janee for PA * Telephone Encounter - Humaira Wetzel - 05/13/2023 4:43 PM EDT [facility] Pharmacy was called and the pharmacist suggested a medication prior authorization for the 4 pills per day. The insurance company is absurd. * Telephone Encounter - Ghazala Mccord MD - 05/13/2023 3:51 PM EDT What??? [...] and advise. Humaira Wetzel documented in this encounterHolmes County [facility]06-21-2023 History of Present illness Narrative* Ghazala Mccord MD - 05/12/2023 3:00 PM EDT Rehabilitation [...] noted at rest but better with activity. CORNICE UPHOLSTERER D placed on 6/21/22. Ongoing issues: Feeling loopy with baclofen with [...] intentioned for use under this context. Ghazala Mccord MD I spent a total of 30 minutes on the date of the service which included preparing to see the patient, mgny-pt-ospj patient care, completing clinical documentation, performing a medically appropriate examination, counseling and educating the patient/family/caregiver, and ordering medications, tests,or procedures. documented in this encounterHolmes County [facility]06-21-2023 Nurse Note* Janee Argueta RN - 05/12/2023 1:24 PM EDT Patient presents for spasticity on right side The following tests/records were reviewed:no Do you need any refills today from the doctor?yes Janee Argueta RN documented in this encounterHolmes County [facility]12-15-2022 Miscellaneous Notes* Telephone Encounter - Martina Gomez RN - 11/05/2022 4:26 PM EST Called and spoke with Song, Mrs. Caro's , and went over Dr. Mccord's message below. He verbalized understanding and will start new dosage of baclofen once he picks up the new script. No questions or concerns at this time, but he will reach out to us if needed Martina Gomez RN November 05, 2022 4:27 PM * Telephone Encounter - Ghazala Mccord MD - 11/05/2022 3:36 PM EST Will increase to 10mg tid for now and see how responds. * Telephone Encounter - Martina Gomez RN - 10/12/2022 2:46 PM EST Patient's partner is requesting increase in Baclofen or change of medication for spasticity. Pleaseadvise Martina Gomez RN October 12, 2022 2:48 PM [...] different medication. He is aware of Dr. Mccord being out of the office until 10/26/2022. He said, This can wait until she returns. documented in this encounterHolmes County [facility]11-21-2022 History of Present illness Narrative* Syd Ramirez MD - 10/12/2022 1:45 PM EST [facility] - FOLLOW UP EVALUATION Jesus Manuel Freitas, DO, DO [address] [facility] [address] Freitas, I had the pleasure of seeing Ms. Caro for follow-up today. As you know she is a 67 year old right-handed female with a history of left hand tremor since 2021. She is seen alone. We had a visit using: Zenfolio I received consent from the patient to [...] Flowsheet Row Appointment from 10/12/2022 in [facility] from 08/10/2022 in [facility] T Score 39.8 37.4 [...] allergic reaction and is willing to rechallenge [facility] RN Current Outpatient Medications Medication Sig carbidopa-levodopa [...] research? Not currently Level of service : 79667 (10-19 min). Time spent 15 min on the day of service, which included preparing to see the patient, gagz-ki-kylp patient care, completing clinical documentation, obtaining and/or reviewing separately obtained history, performing a medically appropriate examination, and counseling and educating the patient/family/caregiver. Thank you for allowing me to be part of the clinical care of this patient! I look forward to continued participation in the patient s care with you. Please do not hesitate to call with any questions. Sincerely, Syd Ramirez MD Associate Staff Movement disorders [facility] documented in this encounterHolmes County [facility]09-29-2022 Hospital Discharge instructions Patient Education [...] swelling in the outer vaginal area (labia) 5053-7788 [employer]. [address] [place] [address]. All rights reserved. This information is not [...] about: All medicines you take, including prescription, xygi-qho-zotlobh, herbs, and supplements Any other symptoms you [...] Chest, arm, neck, back, or jaw pain 9014-7219 [employer]. [address] [place] [address]. All rights reserved. This information is not intended as a substitute for professional medical care. Always follow yourhealthcare professional's instructions. Follow Up Care 08/19/2022 14:59:40 With:CHELA BHANDARI DO Address: [address] [place] [phone] When:2-4 days [facility] 09-29-2022 Emergency department Discharge summary Discharge Instructions Thank you for allowing [facility] to assist you with your healthcare needs. The following is importantdischarge information regarding your hospital visit. Diagnosis from Today's Visit Generalized weakness Fatigue What to Do Next Instructions from Your Care Team No qualifying data available. Post Acute Orders No qualifying data available. You Need to Schedule the Following Appointments Follow Up with CHELA BHANDARI DO When Within 2-4 days Where: [address] [place] [phone] Allergies NKA Medications Please ask your primary [...] swelling in the outer vaginal area (labia) 2752-4547 [employer]. [address] [place] [address], [place] [address]. All rights reserved. This information is not intended as a substitute for professional medical care. Always follow yourhealthcare professional's instructions. Dizziness (Uncertain Cause) Dizziness is a common symptom. It may be described as lightheadedness, spinning, or feeling like you are going to faint. Dizziness can have many causes. Be sure to tell the healthcare provider about: All medicines you take, including prescription, dszl-miw-eekzeaj, herbs, and supplements Any other symptoms you [...] Chest, arm, neck, back, or jaw pain 9904-5732 [employer]. [address] [facility], [place] [address]. All rights reserved. This information is not intended as a substitute for professional medical care. Always follow yourhealthcare professional's instructions. Additional Information VACCINATE! IT SAVES LIVES! Members of the community who have not yet received the COVID-19 vaccine and would like to receive it can visit one of [facility] vaccine clinics. There are many vaccine clinic locations within the [facility]. For locations and available times, please visit [email or web address]. It is important to note that some COVID mobile vaccine clinics are held outdoors and may be canceled in rainy orstormy conditions. To learn more about pediatric vaccinations (ages 5-11), we invite you to visit the [facility] webpage. https://www.[email or web address] and [email or web address]/pages/[email or web address]-Rtubu-Fywgowevftr-Saximhjcvp-Plbny-Zsa stions.htmlTo learn more about the COVID-19 vaccine, we invite you to visit the [facility] website for a list of frequently asked questions. [email or web address]-[email or web address]-Eripvhre/rzjzc-Wxvartl-Odqvbndnzg _Asked-Questions.pdf [facility] [employer] Patient Portal Access Instructions: Stay connected with your healthcare team and access your personal medical information anytime with the [facility] Patient Portal. If you would like a full copy of your medical records please contact the [facility] Medical Records Department Wednesday through Wednesday between 8a.m. and 4:30p.m. Please follow the directions below to access the portal: 1.Access the email account you provided upon registration to the hospital.2.Look for an invitation email from [facility].3.Open the email and access the invitation link: Accept Invitation to [facility]4.Fill in the required tirado to create your account. Sign into www.[employer] with your username and password that you [...] you will allow to register on the [facility] Patient Portal for access to your information. You can also access the [facility] Patient Portal on the [employer] ricardo. Simply click on Health Records under Health [employer] and then click on the ZYB logo. HOW TO SAFELY DISPOSE OF PRESCRIPTION [...] Call your local pharmacy or go to [email or web address] to find one close to you.3.Make use of household items: Use cat litter or old coffee grounds to dispose medications if other options arenot available. Mix your drugs with these household products, seal them in an airtight container andthrow it into the garbage. Call [facility]: [phone] to be sure your drugs can be [...] aware that I should contact my doctor. Patient/Nutritional Services Cook Signature: Date/Time: Relationship to Patient: Witness Name/Signature: Date/Time: [facility]Rowmmjnd44-[facility]-2668 Emergency department Discharge summary Discharge Instructions Thank you for allowing [facility] to assist you with your healthcare needs. The following is importantdischarge information regarding your hospital visit. Diagnosis from Today's Visit Generalized weakness Fatigue What to Do Next Instructions from Your Care Team No qualifying data available. Post Acute Orders No qualifying data available. You Need to Schedule the Following Appointments Follow Up with CHELA BHANDARI DO When Within 2-4 days Where: [address] [place] [phone] Allergies NKA Medications Please ask your primary [...] swelling in the outer vaginal area (labia) 1704-4210 [employer]. [address] [place] [address], [place] [address]. All rights reserved. This information is not intended as a substitute for professional medical care. Always follow yourhealthcare professional's instructions. Dizziness (Uncertain Cause) Dizziness is a common symptom. It may be described as lightheadedness, spinning, or feeling like you are going to faint. Dizziness can have many causes. Be sure to tell the healthcare provider about: All medicines you take, including prescription, ggbi-fbf-zribxfn, herbs, and supplements Any other symptoms you [...] Chest, arm, neck, back, or jaw pain 9626-5216 [employer]. [address] [place] [address], [place] [address]. All rights reserved. This information is not intended as a substitute for professional medical care. Always follow yourhealthcare professional's instructions. Additional Information VACCINATE! IT SAVES LIVES! Members of the community who have not yet received the COVID-19 vaccine and would like to receive it can visit one of [facility] vaccine clinics. There are many vaccine clinic locations within the [facility]. For locations and available times, please visit [email or web address]. It is important to note that some COVID mobile vaccine clinics are held outdoors and may be canceled in rainy orstormy conditions. To learn more about pediatric vaccinations (ages 5-11), we invite you to visit the [facility] webpage. https://www.[facility].org/pages/0972-Dtpnl-Ebayogogzur-Iauxjdjisu-Snhvv-Ogl stions.htmlTo learn more about the COVID-19 vaccine, we invite you to visit the [facility] website for a list of frequently asked questions. [email or web address]://[email or web address]/assets/Fpqvqhjk-wzg-Cnzlyngj/mmvkq-Arovvby-Zpfpkycuib _Asked-Questions.pdf [facility] [employer] Patient Portal Access Instructions: Stay connected with your healthcare team and access your personal medical information anytime with the [facility] Patient Portal. If you would like a full copy of your medical records please contact the [facility] Medical Records Department Wednesday through Wednesday between 8a.m. and 4:30p.m. Please follow the directions below to access the portal: 1.Access the email account you provided upon registration to the [facility].2.Look for an invitation email from [facility].3.Open the email and access the invitation link: Accept Invitation to [facility]4.Fill in the required tirado to create your account. Sign into www.[employer] with your username and password that you [...] you will allow to register on the [facility] Patient Portal for access to your information. You can also access the [facility] Patient Portal on the [employer] ricardo. Simply click on Health Records under [employer] and then click on the ZYB logo. HOW TO SAFELY DISPOSE OF PRESCRIPTION [...] Call your local pharmacy or go to http://[email or web address].[address]/5V2Qb2h to find one close to you.3.Make use of household items: Use cat litter or old coffee grounds to dispose medications if other options arenot available. Mix your drugs with these household products, seal them in an airtight container andthrow it into the garbage. Call [facility]: [phone] to be sure your drugs can be [...] aware that I should contact my doctor. Patient/Nutritional Services Cook Signature: Date/Time: Relationship to Patient: Witness Name/Signature: Date/Time: [facility] [id number] HCoV 229E RNA ENRIQUE+non-probe Ql (Nph)Not Detected *NA* (08/19/22 4:45 PM)AH Auto Viro/Sero [id number] Note ORIGINAL EXAMINATION: ONE XRAY VIEW OF [...] Sign Date: 08/19/2022 4:42:10 PM Ordering Provider: SHAHRAM SHER [facility] [id number] Note ORIGINAL EXAMINATION: ONE XRAY VIEW OF [...] Sign Date: 08/19/2022 4:42:10 PM Ordering Provider: [facility]09-19-2022 History of Present illness Narrative* Syd Ramirez MD - 08/10/2022 3:41 PM EDT [facility] - FOLLOW UP EVALUATION Jesus Manuel Freitas, DO, DO [address] [facility] [address] Freitas, I had the pleasure of seeing Ms. Caro for follow up today. she is a 67 year old right-handed female with a history of lef thand tremor since 2021. She is seen with her . We had a visit using: Zenfolio I received consent from the patient to perform the visit using this platform. Subjective HISTORY OF PRESENT ILLNESS: During her previous visit the following plan was made: Previous plan-06/23/2022 Visit: Tremor -patient will contact us via Podio messaging should she wish to proceed with [...] Flowsheet Row Appointment from 08/10/2022 in [facility] from 10/30/2021in [facility] [...] allergic reaction and is willing to rechallenge [facility] Current Outpatient Medications Medication Sig carbidopa-levodopa [...] Medication Schedule: Medications Level of service : 88242 (20-29 min). Time spent 20 min on the day of service, which included preparing to see the patient, npqw-pb-qdob patient care, completing clinical documentation, obtaining and/or reviewing separately obtained history, performing a medically appropriate examination, and counseling and educating the patient/family/caregiver Thank you for allowing me to be part of the clinical care of this patient! I look forward to continued participation in the patient s care with you. Please do not hesitate to call with any questions. Sincerely, Syd Ramirez MD Associate Staff Movement disorders [facility] documented in this encounterHolmes County [facility]08-02-2022 Instructions* Patient Instructions* Carleen Denton [...] scans like Clemencia scan. Discuss with your adjunct faculty instructor starting Sinemet and send us a message via [employer] if you'd like to start the medication Return in about 3 months (around 09/23/2022) for Virtual Visit. If there are any concerns before your next visit, please call or you can send a message through Podio. You can also now schedule and select appointments through Podio. Carleen Denton MD documented in this encounterHolmes County [facility]08-02-2022 History of Present illness Narrative* Syd Ramirez MD - 06/23/2022 3:23 PM EDT [facility] - NEW PATIENT EVALUATION Ghazala Mccord [address] [place] [address] Jesus Manuel Freitas, DO, DO [address] [facility] [address] Mccord: thank you for referring Ms. Caro in [...] EF and she eventually needed insertion of CORNICE UPHOLSTERER-D in April. In addition to her new [...] keeping her appointments. She is independent in [facility]'s. Her grandmother may have had a tremor. [...] allergic reaction and is willing to rechallenge [facility] RN Current Outpatient Medications Medication Sig clopidogrel [...] 3+ 2+ Patellar 3+ 2+ Coordination Right: Spqhzm-eb-lqdy normal. Rapid alternating movement abnormality: Mild right-sided slowing of finger and hand movements in the context of spasticity. Moderate slowing of left finger and hand movements. Mild slowing is seen in left toe tapping and leg agility.. Left: Kyrqdz-do-uddn normal. Rapid alternating movement abnormality: Gait Slow [...] the amplitude decrements starting after the 1st ushf-pif-epzkr sequence. Arm Movements Right 2-Mild. a) 3 [...] to discuss the levodopa trial with her adjunct faculty instructor to see if there is any cardiac [...] Visit: Tremor -patient will contact us via Podio messaging should she wish to proceed with Sinemet trial. Virtual follow-up in 3 months Interested in clinical research? Not currently Level of service : 68447 (60-74) min). Time spent 60 min on the day of service, which included preparing to see the patient, lkie-cz-sqvu patient care, completing clinical documentation, obtaining and/or [...] hesitate to call with any questions. Sincerely, Syd Ramirez MD Associate Staff [facility] disorders [facility] documented in this encounterHolmes County [facility]07-14-2022 History of Present illness Narrative* Ghazala Mccord MD - 06/04/2022 1:01 PM EDT Rehabilitation [...] noted at rest but better with activity. CORNICE UPHOLSTERER D placed on 05/12/22. No new N/T [...] mg ORAL Tab 1 qd amlodipine bes/olmesartan med(GEORGE 5 MG-20 MG TAB) Take 1/2 tablet [...] intentioned for use under this context. Ghazala Mccord MD I spent a total of 30 minutes on the date of the service which included preparing to see the patient, ljib-gp-zkfg patient care, completing clinical documentation, performing a medically appropriate examination, counseling and educating the patient/family/caregiver and ordering medications, tests, or procedures. documented in this encounterHolmes County [facility]07-01-2022 Hospital Discharge instructions Patient Education [...] or a fever with an unknown cause. Ieyb-dfr-smumrlq medicines will not shorten the duration of [...] your healthcare provider Feeling weak or dizzy 4716-9474 [employer]. [address] [place] [address], [place] [address]. All rights reserved. This information is not intended as a substitute for professional medical care. Always follow [facility] professional's instructions. 05/22/2022 15:09:33 Fever Control (Adult) [...] where infectious diseases are common. Many people fruit or nut picker a cold or other virus while [...] you were there Where you stayed (hotel, lummi house, tent) What you ate and drank If you were bitten by insects or other bugs If you swam in freshwater If you had sex or got a tattoo or piercing while you were there Check the [facility] to get more information about specific infectious diseases in the areas you have traveled. 2843-4518 [employer]. [address] [place] [address]. All rights reserved. This information is not intended as a substitute for professional medical care. Always follow your[facility] professional's instructions. 05/22/2022 15:07:47 Weakness (Uncertain Cause) [...] red color) Loss of consciousness Severe headache 9808-4402 [employer]. [address] [place] [address]. All rights reserved. This information is not intended as a substitute for professional medical care. Always follow yourhealthcare professional's instructions. Follow Up Care 05/22/2022 12:44:39 With:CHELA BHANDARI DO Address: [address] [place] [address] [place] [address]- [phone] When:2-4 days Comments:Schedule appointment for close follow-up.Drink plenty of fluids and rest.Use Tylenol or Advil for fever as needed.Continue current medications.Return to the ED if symptoms worsen. [facility] 07-01-2022 Emergency department Discharge summary Discharge Instructions Thank you for allowing [facility] to assist you with your healthcare needs. The following is importantdischarge information regarding your hospital visit. Diagnosis from Today's Visit Fever Weakness or fatigue What to Do Next Instructions from Your Care Team No qualifying data available. Post Acute Orders No qualifying data available. You Need to Schedule the Following Appointments Follow Up with CHELA BHANDARI DO When Within 2-4 days Why: Schedule appointment for close follow-up. Drink plenty of fluids and rest. Use Tylenol or Advil for fever as needed. Continue current medications. Return to the ED if symptoms worsen. [facility] [facility] [place] [phone] Allergies NKA Medications Please ask your primary [...] or a fever with an unknown cause. Xnew-gtd-ebemdgs medicines will not shorten the duration of [...] your healthcare provider Feeling weak or dizzy [employer]. [address] [place] [address]. All rights reserved. This information is not [...] where infectious diseases are common. Many people fruit or nut picker a cold or other virus while [...] you were there Where you stayed (hotel, lummi house, tent) What you ate and drank If you were bitten by insects or other bugs If you swam in freshwater If you had sex or got a tattoo or piercing while you were there Check the CDC to get more information about specific infectious diseases in the areas you have traveled. 2330-2226 [employer]. [address] [place], [place] [address]. All rights reserved. This information is not [...] red color) Loss of consciousness Severe headache 2906-3983 [employer]. [address] [place] [address]. All rights reserved. This information is not intended as a substitute for professional medical care. Always follow yourhealthcare professional's instructions. Additional Information VACCINATE! IT SAVES LIVES! Members of the community who have not yet received the COVID-19 vaccine and would like to receive it can visit one of [facility] vaccine clinics. There are many vaccine clinic locations within the [facility]. For locations and available times, please visit www.gettheshot.[email or web address].[place].org. It is important to note that some COVID mobile vaccine clinics are held outdoors and may be canceled in rainy orstormy conditions. To learn more about pediatric vaccinations (ages 5-11), we invite you to visit the [facility] webpage. https://www.[facility].org/pages/1624-Frxpl-Mqwohcdorjr-Bxevkmysxg-Kwscf-Fmq stions.htmlTo learn more about the COVID-19 vaccine, we invite you to visit the [facility] website for a list of frequently asked questions. https://prosser.[facility]/assets/Klcjvkla-ljk-Awslzija/iqwgb-Prhyfyk-Kwxuobmbww _Asked-Questions.pdf [facility] [employer] Patient Portal Access Instructions: Stay connected with your healthcare team and access your personal medical information anytime with the [facility] Patient Portal. If you would like a full copy of your medical records please contact the [facility] Medical Records Department Wednesday through Wednesday between 8a.m. and 4:30p.m. Please follow the directions below to access the portal: 1.Access the email account you provided upon registration to the [facility].2.Look for an invitation email from [facility].3.Open the email and access the invitation link: Accept Invitation to [facility]4.Fill in the required tirado to create your account. Sign into [email or web address] with your username and password that you [...] you will allow to register on the [facility] [employer] Patient Portal for access to your information. You can also access the [facility] [employer] Patient Portal on the beqom. Simply click on Health Records under [employer] and then click on the Michael logo. HOW TO SAFELY DISPOSE OF PRESCRIPTION [...] Call your local pharmacy or go to http://[email or web address]/1N9Cw3v to find one close to you.3.Make use of household items: Use cat litter or old coffee grounds to dispose medications if other options arenot available. Mix your drugs with these household products, seal them in an airtight container andthrow it into the garbage. Call [facility]: [phone] to be sure your drugs can be [...] aware that I should contact my doctor. Patient/Nutritional Services Cook Signature: Date/Time: Relationship to Patient: Witness Name/Signature: Date/Time: [id number] Emergency department Discharge summary Discharge Instructions Thank you for allowing [facility] to assist you with your healthcare needs. The following is importantdischarge information regarding your hospital visit. Diagnosis from Today's Visit Fever Weakness or fatigue What to Do Next Instructions from Your Care Team No qualifying data available. Post Acute Orders No qualifying data available. You Need to Schedule the Following Appointments Follow Up with CHELA BHANDARI DO When Within 2-4 days Why: Schedule appointment for close follow-up. Drink plenty of fluids and rest. Use Tylenol or Advil for fever as needed. Continue current medications. Return to the ED if symptoms worsen. Where: [address] [facility] [place] [address] [phone] Allergies NKA Medications Please ask your primary [...] or a fever with an unknown cause. Pncz-vys-dsitswh medicines will not shorten the duration of [...] your healthcare provider Feeling weak or dizzy [phone] [employer]. [address] [place] [address]. All rights reserved. This information is not [...] where infectious diseases are common. Many people fruit or nut picker a cold or other virus while [...] you were there Where you stayed (hotel, lummi house, tent) What you ate and drank If you were bitten by insects or other bugs If you swam in freshwater If you had sex or got a tattoo or piercing while you were there Check the CDC to get more information about specific infectious diseases in the areas you have traveled. 5636-4933 [employer]. [address] [place], [place] [address]. All rights reserved. This information is not [...] red color) Loss of consciousness Severe headache 4717-1320 [employer]. [address] [place] [address]. All rights reserved. This information is not intended as a substitute for professional medical care. Always follow yourhealthcare professional's instructions. Additional Information VACCINATE! IT SAVES LIVES! Members of the community who have not yet received the COVID-19 vaccine and would like to receive it can visit one of [facility] vaccine clinics. There are many vaccine clinic locations within the [facility]. For locations and available times, please visit www.gettheshot.coronavirus.[place].org. It is important to note that some COVID mobile vaccine clinics are held outdoors and may be canceled in rainy orstormy conditions. To learn more about pediatric vaccinations (ages 5-11), we invite you to visit the [facility] webpage. https://www.[facility].org/pages/7302-Dlxpo-Ehowslwgtai-Ngpvhhcsjw-Vxglq-Syq stions.htmlTo learn more about the COVID-19 vaccine, we invite you to visit the [facility] website for a list of frequently asked questions. https://michael.[employer]/assets/Gpkkqeix-ifh-Zdhzfawl/omxie-Vgodpvb-Fgcldrykte _Asked-Questions.pdf [facility] [employer] Patient Portal Access Instructions: Stay connected with your healthcare team and access your personal medical information anytime with the [facility] Patient Portal. If you would like a full copy of your medical records please contact the [facility] Medical Records Department Wednesday through Wednesday between 8a.m. and 4:30p.m. Please follow the directions below to access the portal: 1.Access the email account you provided upon registration to the [facility].2.Look for an invitation email from [facility].3.Open the email and access the invitation link: Accept Invitation to [facility]4.Fill in the required tirado to create your account. Sign into [email or web address] with your username and password that you [...] you will allow to register on the [facility] Patient Portal for access to your information. You can also access the [facility] Patient Portal on the [employer] ricardo. Simply click on Health Records under [employer] and then click on the ZYB logo. HOW TO SAFELY DISPOSE OF PRESCRIPTION [...] Call your local pharmacy or go to http://[email or web address].[address]/9T1Id0h to find one close to you.3.Make use of household items: Use cat litter or old coffee grounds to dispose medications if other options arenot available. Mix your drugs with these household products, seal them in an airtight container andthrow it into the garbage. Call [facility]: [phone] to be sure your drugs can be [...] aware that I should contact my doctor. Patient/Nutritional Services Cook Signature: Date/Time: Relationship to Patient: Witness Name/Signature: Date/Time: [id number] Emergency department Discharge summary Discharge Instructions Thank you for allowing [facility] to assist you with your healthcare needs. The following is importantdischarge information regarding your hospital visit. Diagnosis from Today's Visit Fever Weakness or fatigue What to Do Next Instructions from Your Care Team No qualifying data available. Post Acute Orders No qualifying data available. You Need to Schedule the Following Appointments Follow Up with CHELA BHANDARI DO When Within 2-4 days Why: Schedule appointment for close follow-up. Drink plenty of fluids and rest. Use Tylenol or Advil for fever as needed. Continue current medications. Return to the ED if symptoms worsen. [facility] [address] [facility] [place] [address] [phone] Allergies NKA Medications Please ask your primary [...] or a fever with an unknown cause. Bwhk-pij-bknyewu medicines will not shorten the duration of [...] your healthcare provider Feeling weak or dizzy 7321-9741 [employer]. [address] [place] [address], [place] [address]. All rights reserved. This information is not [...] where infectious diseases are common. Many people fruit or nut picker a cold or other virus while [...] you were there Where you stayed (hotel, lummi house, tent) What you ate and drank If you were bitten by insects or other bugs If you swam in freshwater If you had sex or got a tattoo or piercing while you were there Check the CDC to get more information about specific infectious diseases in the areas you have traveled. 9973-6988 [employer]. [address] [place], [place] [address]. All rights reserved. This information is not [...] red color) Loss of consciousness Severe headache 1371-8145 [employer]. [address] [place] [address]. All rights reserved. This information is not intended as a substitute for professional medical care. Always follow yourhealthcare professional's instructions. Additional Information VACCINATE! IT SAVES LIVES! Members of the community who have not yet received the COVID-19 vaccine and would like to receive it can visit one of [facility] vaccine clinics. There are many vaccine clinic locations within the [facility]. For locations and available times, please visit www.gettheshot.coronavirus.[place].org. It is important to note that some COVID mobile vaccine clinics are held outdoors and may be canceled in rainy orstormy conditions. To learn more about pediatric vaccinations (ages 5-11), we invite you to visit the [facility] webpage. https://www.[facility].org/pages/5619-Ekrwx-Turbmrueazs-Osvcjxnwdq-Xpiga-Icv stions.htmlTo learn more about the COVID-19 vaccine, we invite you to visit the [facility] website for a list of frequently asked questions. https://michael.[employer]/assets/Bbwzqtmr-roy-Zanryxls/njjym-Myfbdgr-Zrzqmlyugr _Asked-Questions.pdf [facility] [employer] Patient Portal Access Instructions: Stay connected with your healthcare team and access your personal medical information anytime with the [facility] [employer] Patient Portal. If you would like a full copy of your medical records please contact the [facility] Medical Records Department Wednesday through Wednesday between 8a.m. and 4:30p.m. Please follow the directions below to access the portal: 1.Access the email account you provided upon registration to the [facility].2.Look for an invitation email from [facility].3.Open the email and access the invitation link: Accept Invitation to [facility]4.Fill in the required tirado to create your account. Sign into www.[email or web address] with your username and password that you [...] you will allow to register on the [facility] [employer] Patient Portal for access to your information. You can also access the [facility] Patient Portal on the beqom. Simply click on Health Records under [employer] and then click on the Michael logo. HOW TO SAFELY DISPOSE OF PRESCRIPTION [...] Call your local pharmacy or go to http://[email or web address].[address]/9E2Lm0w to find one close to you.3.Make use of household items: Use cat litter or old coffee grounds to dispose medications if other options arenot available. Mix your drugs with these household products, seal them in an airtight container andthrow it into the garbage. Call [facility]: [phone] to be sure your drugs can be [...] aware that I should contact my doctor. Patient/Nutritional Services Cook Signature: Date/Time: Relationship to Patient: Witness Name/Signature: Date/Time: [id number] HCoV 229E RNA ENRIQUE+non-probe Ql (Nph)Not Detected *NA* (05/22/22 2:10 PM) Auto Viro/Sero [id number] Note ORIGINAL EXAMINATION: ONE XRAY VIEW OF [...] Sign Date: 05/22/2022 1:15:33 PM Ordering Provider: [facility]07-01-2022 Note ORIGINAL EXAMINATION: ONE XRAY VIEW [...] Sign Date: 05/22/2022 1:15:33 PM Ordering Provider: [facility]06-10-2022 Miscellaneous Notes* Telephone Encounter - Humaira Wetzel - 05/01/2022 11:14 AM EDT Mr. Pena, of [facility] was called and he scheduled an appointment on 06/04/[address] Mccord at the [facility] for f2f appointment. Aware the Rx is only good for 1 month. Patient developed a heart condition in October 2021. * Telephone Encounter - Ghazala Mccord MD - 05/01/2022 9:26 AM EDT She will need to schedule F2F f/u. I will give her 1 month refill until make sure she sets up follow up * Telephone Encounter - Humaira Wetzel - 05/01/2022 8:21 AM EDT [facility]; Last f2f on 07/10/2021. Last [...] and advise. Humaira Wetzel [facility] Discharge instructions Patient Education [...] action. To control pain, take prescription or njqd-dde-wiuyvme medicines as directed. Unless told not to, [...] Severe headache, neck pain, drowsiness, or confusion 3652-9937 [employer]. [address] [place], [place] [address]. All rights reserved. This information is not intended as a substitute for professional medical care. Always follow yourhealthcare professional's instructions. Follow Up Care 04/25/2022 23:32:02 With:Go to emergency room if symptoms worsen Address:Unknown When:2-4 days With:CHELA BHANDARI DO Address: [address] [place] [address] [place] [address] [phone] When:2-4 days [facility] 03-17-2022 Miscellaneous Notes* Telephone Encounter - Pina Euceda - 02/05/2022 8:10 AM EDT Patient Song Chavez calling in stating him and the patient have questions about the medication Baclofen (Lioresal) that was prescribed. Please advise documented in this encounterHol[facility] Hospital Discharge instructions Patient Education 12/25/2021 14:06:01 Heart Failure, Diagnosis, Cwun-oe-Ztni Heart Failure, Diagnosis Heart failure means that [...] 08/17/2009 Document Revised: 01/26/2020 Document Reviewed: 01/26/2020 [employer] Patient Education 2020 [employer]. Follow Up Care 12/24/2021 01:51:28 With:JAC CHRISTENSEN MD Address: [address] [facility] [address] [facility] [place] [address]- [phone] When:12/30/2021 10:15:00 Comments:THIS APPOINTMENT WILL BE WITH REI SHARIF [facility] 02-02-2022 Evaluation + Plan noteExtracted from: Title:History [...] Appointments Appointment Date:12/30/2021 10:15:00 AM Scheduled Provider:REI SHARIF Location:[facility] Appointment Type:CV OV Appointment Date:2022 11:00:00 AM Scheduled [facility]oint[facility] Type:CV OV Appointment Date:02/12/2022 11:00:00 AM Scheduled Provider:CHELA BHANDARI DO Location[facility] Appointment Type:PC OV Future Scheduled Tests Laboratory* Complete Blood Count 12/09/21 * Complete Metabolic Panel 12/09/21 [facility] 01-14-2022 Hospital Discharge instructions Patient Education 12/05/2021 [...] Slowly return to your usual activities. Take mvmy-byq-snlccyx and prescription medicines only as told by [...] 08/03/2002 Document Revised: 04/10/2019 Document Reviewed: 04/10/2019 [employer] Patient Education 2020 [employer]. Follow Up Care 11/22/2021 03:48:42 With:CHELA BHANDARI DO Address: [address] [place] [address]- [phone] When:1-2 days Comments:PLEASE CALL THIS OFFICE TO SCHEDULE A HOSPITAL FOLLOW UP APPOINTMENT. With:HARISH GIFFORD APRN-CURRICULUM DIRECTOR Address: [address] [place] [address] [address] [place] [address]- [phone] When:12/12/2021 Comments:This is your heart failure appointment. An appointment with your adjunct faculty instructor will be made at this visit. With:Cardiac Rehab Address: [address] [facility] [place] [address]- When: Unknown Comments:The Cardiac Rehab department will call you in 4-5 weeks to schedule you for phase 2. We left you a brochure with information about cardiac rehab. If you have any questions please call [phone]. With:JAC CHRISTENSEN MD Address: [address] [facility] [facility] [place] [place] [address]- [phone] When:2022 11:00:00 [facility] 01-06-2022 HCoV 229E RNA ENRIQUE+non-probe Ql (Nph)Not Detected *NA* (11/27/21 12:42 PM) Auto Viro/Sero [id number] Evaluation + Plan noteExtracted from: Title:Critical care [...] 1 L IV hydration, Rocephin, levofloxacin at [facility]. We will start patient on broad-spectrum antibiotic [...] BMP #DVT prophylaxis: Lovenox#Full code Addendum by SHAHRAM PILLAI MD on November 22, 2021 18:36:15 EST I independently examined the patient and agree with the statements above. I discussed the case with the patient's at bedside who reports that the patient went to [place] starting on 11/08 and began to develop [...] levofloxacin and ceftriaxone, which were continued from [facility] ED. Can de-escalate to levofloxacin Order brain natriuretic peptide Empiric dose of IV furosemide 40 mg Repeat Covid test negative We will follow up blood and respiratory culture data GI prophylaxis with famotidine DVT prophylaxis with Lovenox Full code 35 minutes of critical care time Future Appointments Appointment Date:02/12/2022 11:00:00 AM Scheduled Provider:CHELA BHANDARI DO Location:[facility] Appointment Type:PC OV Diagnostic Tests Pending * Blood Culture (bacterial) 11/22/21 * Blood Culture (bacterial) 11/22/21 [facility] 04-02-2015 History of Past illness Narrative* Problem Noted Date Resolved Date Personal history of colonic polyps 02/21/2015 02/21/2015 documented as of this encounter (statuses as of 03/16/2022) [address]02-2015 History of Past illness Narrative* Problem Noted Date Resolved Date Personal history of colonic polyps 02/21/2015 02/21/2015 documented as of this encounter (statuses as of 05/01/2022) [address]02-2015 History of Past illness Narrative* Problem Noted Date Resolved Date Personal history of colonic polyps 02/21/2015 02/21/2015 documented as of this encounter (statuses as of 06/04/2022) [address]02[address]2015 History of Past illness Narrative* Problem Noted Date Resolved Date Personal history of colonic polyps 02/21/2015 02/21/2015 documented as of this encounter (statuses as of 06/25/2022) [address]2015 History of Past illness Narrative* Problem Noted Date Resolved Date Personal history of colonic polyps 02/21/2015 02/21/2015 documented as of this encounter (statuses as of 07/02/2022) [address]2015 History of Past illness Narrative* Problem Noted Date Resolved Date Personal history of colonic polyps 02/21/2015 02/21/2015 documented as of this encounter (statuses as of 08/10/2022) [address]2015 History of Past illness Narrative* Problem Noted Date Resolved Date Personal history of colonic polyps 02/21/2015 02/21/2015 documented as of this encounter (statuses as of 10/12/2022) [address] History of Past illness Narrative* Problem Noted Date Resolved Date Personal history of colonic polyps 02/21/2015 02/21/2015 documented as of this encounter (statuses as of 11/05/2022) [address] History of Past illness Narrative* Problem Noted Date Resolved Date Personal history of colonic polyps 02/21/2015 02/21/2015 documented as of this encounter (statuses as of 05/14/2023) [address]2015 History of Past illness Narrative* Problem Noted Date Resolved Date Personal history of colonic polyps 02/21/2015 02/21/2015 documented as of this encounter (statuses as of 05/18/2023) [address]2015 History of Past illness Narrative* Problem Noted Date Diagnosed Date Resolved Date Personal history of colonic polyps 02/21/2015 02/21/2015 documented as of this encounter (statuses as of 07/01/2023) [address]2015 History of Past illness Narrative* Problem Noted Date Diagnosed Date Resolved Date Personal history of colonic polyps 02/21/2015 02/21/2015 documented as of this encounter (statuses as of 07/21/2023) [address] History of Past illness Narrative* Problem Noted Date Diagnosed Date Resolved Date Personal history of colonic polyps 02/21/2015 02/21/2015 documented as of this encounter (statuses as of 09/22/2023) [address]2015 History of Past illness Narrative* Problem Noted Date Diagnosed Date Resolved Date Personal history of colonic polyps 02/21/2015 02/21/2015 documented as of this encounter (statuses as of 09/22/2023) [address] History of Past illness Narrative* Problem Noted Date Diagnosed Date Resolved Date Personal history of colonic polyps 02/21/2015 02/21/2015 documented as of this encounter (statuses as of 10/22/2023) [address] History of Past illness Narrative* Problem Noted Date Diagnosed Date Resolved Date Personal history of colonic polyps 02/21/2015 02/21/2015 documented as of this encounter (statuses as of 10/23/2023) [facility] Author Talat Cameron [facility] October 01, 2023 2:08pm Note Date/Time October 01, 2023 2:08pm [facility] Medical Records Department [address] [place] [address] Counseling Note - Pharmacy 10/01/23 1408 MR#: [id number] Acct: [id number] Name: MANSI CARO Rep #:[id number] : 1955 68 From: Talat Cameron PCP: Dr. Adrienne Byers, DO Status:ADM IN Y Location: [place] [address] [place] Med Reconciliation Pharmacy Service has performed discharge medication reconciliation for this patient. The patient's discharge medication list was reviewed for discrepancies and discrepancies were resolved. 10/01/23 1408 <Electronically signed by Talat knight> Date _ Talat Cameron Cosigner Signature (if applicable): Date CC: ~ Signed [facility] Work Phone: Consult note Author Carlotta Singletary [facility] October 12, 2023 11:48am Note Date/Time October 12, 2023 11:40am [facility] Medical Records Department [address] [place] [address] Counseling Note - Pharmacy 10/12/23 1139 MR#: [id number] Acct: [id number] Name: MANSI CARO Rep #:[id number] : 1955 68 From: Carlotta Singletary PCP: Dr. Adrienne Byers, DO Status:ADM ANGELIA Y Location: [place] [address] [place] Med Reconciliation Pharmacy Service has performed discharge [...] signed by Carlotta Singletary> Date _ Carlotta Singletary Cosigner Signature (if applicable): Date CC: ~ Signed [facility] Work Phone: Consult note Author Talat Cameron [facility] February 29, 2024 11:45am Note Date/Time February 29, 2024 11:4 5am [facility] Medical Records Department [address] [place] [address] Counseling Note - Pharmacy 02/29/24 1145 MR#: [id number] Acct: [id number] Name: MANSI CARO Rep #:[id number] : 1955 69 From: Talat Cameron PCP: Dr. Adrienne Byers, DO Status:ADM IN Y Location: [place] [address] [place]acy [place] Med Reconciliation Pharmacy Service has performed discharge [...] mg) PO Q4H PRN PRN Fever, pain - 08/31 #0 tabs 02/29/24 bisacodyl 5 mg [...] Signature (if applicable): Date CC: ~ Signed [facility] Work Phone: Discharge summary Author Romeo [facility]St[facility] Note Date/Time April 19, 2025 11:06 am [facility] Medical Records Department [address] [place] [address] Emergency Department Summary 04/19/25 MR#: [id number] Acct: [id number] Name: MANSI CARO Rep #:[id number] : 1955 70 From: Romeo Padron DO PCP: Marci Nuñez DO Status:REG E R Location: ED ADDENDUM by Dr. Bossman Sanders DO on 04/19/25 at 1106 Patient care turned over to ma awaiting evaluation by manager social media for placement to correction facility. Patient was evaluated by manager social media and it was recommended that patient be admitted for precertification and admission to correction facility. Will discuss case with hospitalist to evaluate patient for admission. 04/19/25 1106<Electronically signed by Bossman Sanders DO> Cosigner Signature (if applicable): cc: Marci Nuñez DO ~* Signed HPI History of Present [...] infection she was brought in for evaluation [facility] Medical History Ischemic colitis History of [...] (patent foramen ovale) Cardiac resynchronization therapy defibrillator (CORNICE UPHOLSTERER-D) in place Myocarditis Hyperlipidemia Hypertension Home Medications [...] 0.125 mg tablet 0.125 mg PO TID WA N dyspepsia #90 03/05/25 Unknown Rx tabs [...] to go home and is agreeable to long term/rehab placement. As it is a weekday and morning hours the patient will be evaluated by physical therapy/Occupational Therapy in the ER and social work will be consulted as well. There is hopes that the patient will be able to be sent directly from the ER to a long term/rehab center. The patient and family were informed [...] 78.3 H Lymph % (Auto) 10.4 L [place] % (Auto) 8.2 Eos % (Auto) 2.5 [...] Clarity Clear Urine pH 6.5 Ur Specific [place] 1.010 Urine Protein 15 H Urine Glucose (UA) 100 H Urine Ketones Negative Urine Occult Blood Negative Urine Nitrite Negative Urine Bilirubin Negative Urine Urobilinogen Normal Ur Leukocyte Esterase Negative Urine RBC 0 SEEN Urine WBC 0 SEEN Ur Squamous Epith Cells 0 SEEN Urine Bacteria 0 SEEN Urine Mucus 0 SEEN Management Discussion w/another healthcare provider: Hospitalist and aircraft layout worker/Case management Discharge Plan Triage Chief Complaint: [...] Qty: 90 2RF Primary Care Provider: Marci Nuñez Referrals: Marci Nuñez DO [Primary Care Provider] - Print Language: Greek What to do if you have Problems For any increased pain, shortness of breath, bleeding, nausea or vomiting, chestpain, or any unexpected problems, contact your Primary Care Provider. Call [facility] ([phone]) or report to the closest Emergency Room. Call 911 if necessary. 04/19/25 0633 <Electronically signed by Romeo Padron DO> Cosigner Signature (if applicable): CC: Marci Nuñez DO ~ Signed [facility] Work Phone: Discharge summary Author Maximo [facility] Note Date/Time April 20, 2025 2:54p m [facility] Medical Records Department [address] [place] [address] Transfer to [facility] MR#: [id number] Acct: [id number] Name: MANSI CARO Rep #:[id number] : 1955 70 From: Maximo levin DO PCP: Marci Nuñez DO Status:ADM I NO Certification of patient admission REQUIRED AT TIME OF ADMISSION. I CERTIFY THAT POST-HOSPITAL ECF SERVICES ARE REQUIRED TO BE GIVEN ON AN IN-PATIENT BASIS BECAUSE OF THE ABOVE NAMED PATIENT'S NEED FOR CUSTODIAL CARE ON A CONTINUING BASIS FOR THE CONDITION(S) FOR WHICH HE/SHE WAS RECEIVING IN-PATIENT HOSPITAL SERVICES PRIOR TO HIS/HER TRANSFER TO THE [facility]. 04/20/25 1454<Electronically signed by Maximo Orosco DO> [...] is a 70-year-old female who presented to [facility] ED on 04/19/2025 with worsening weakness. Short [...] Provider: Maximo Orosco Primary Care Provider: Marci Nuñze Discharge Orders/Prescriptions Prescriptions: Continued furosemide 20 mg [...] 90 2RF Referrals / Follow Up: Marci Nuñez DO [Primary Care Provider] - Disposition Disposition (needs filled in before D/C Order can be placed): [facility] Facility 04/20/25 5229 <Electronically signed by Maximo Orosco DO> Cosigner Signature (if applicable): CC: Marci Nuñez DO ~ [facility] Work Phone: Discharge summary Author [facility] Note Date/Time April 20, 2025 2:55p [facility] Medical Records Department [address] [place] [id number] Discharge Summary 04/20/25 1449 MR#: [id number] Acct: [id number] Name: MANSI CARO Rep #:[id number] : 1955 70 From: Maximo levin DO PCP: Marci Nuñez DO Status:ADM I NO Location: [place] [address] Providers Date of Admission: 04/19/25 Date of Discharge: 04/20/25 Primary Care Physician: Dr. Marci Nuñez DO Reason For Visit: ACUTE ON CHRONIC [...] is a 70-year-old female who presented to [facility] ED on 04/19/2025 with worsening weakness. Short [...] Provider: Maximo Orosco Primary Care Provider: Marci Nuñez Discharge Orders/Prescriptions Prescriptions: Continued furosemide 20 mg [...] 90 2RF Referrals / Follow Up: Marci Nuñez DO [Primary Care Provider] - Disposition Disposition (needs filled in before D/C Order can be placed): [facility] Facility Charges/Coding Visit Charges Inpatient E&M: 47729 Disch Hosp >30min 04/20/25 1458 <Electronically signed by Maximo Orosco DO> Cosigner Signature (if applicable): CC: Dr. Maximo Orosco DO; Marci Nuñez DO~ Signed [facility] Work Phone: Evaluation + Plan note Future Appointments Appointment Date:10/08/2021 02:30:00 PM Scheduled Provider: Location:[facility] Appointment Type:MA Mammogram Screening Bilateral w/ Yoav Appointment Date:10/31/2021 02:00:00 PM Scheduled Provider:CHELA BHANDARI DO Location:[facility] Appointment Type:PC OV Future Scheduled Tests Radiology* MA Mammo Screening Bilateral w/ Yoav 10/08/21 [facility] Evaluation + Plan note Future Appointments Appointment Date:10/31/2021 02:00:00 PM Scheduled Provider:CHELA BHANDARI DO Location:[facility] Appointment Type:PC OV [facility] Evaluation + Plan note Future Appointments Appointment Date:02/12/2022 11:00:00 AM Scheduled Provider:CHELA BHANDARI DO Location:[facility] Appointment Type: OV [facility] Evaluation + Plan note Future Appointments Appointment Date:2022 11:00:00 AM Scheduled Provider: Location:[facility] Appointment Type:CV OV Appointment Date:02/12/2022 11:00:00 AM Scheduled Provider:CHELA BHANDARI DO Location:[facility] Appointment Type: OV [facility] Evaluation + Plan note Future Appointments Appointment Date:12/30/2021 10:15:00 AM Scheduled Provider:REI SHARIF Location:[facility] Appointment Type:CV OV Appointment Date:2022 11:00:00 AM Scheduled Provider: Location:[facility] Appointment Type:CV OV Appointment Date:02/12/2022 11:00:00 AM Scheduled Provider:CHELA BHANDARI DO Location:[facility] Appointment Type:PC OV Future Scheduled Tests Laboratory* Complete Blood Count 12/09/21 * Complete Metabolic Panel 12/09/21 [facility] Evaluation + Plan note Future Appointments Appointment Date:2022 11:00:00 AM Scheduled Provider: Location:[facility] Appointment Type:CV OV Appointment Date:02/12/2022 11:00:00 AM Scheduled Provider:CHELA BHANDARI DO Location:[facility] Appointment Type:PC OV Appointment Date:02/17/2022 03:45:00 PM Scheduled Provider: Location:[facility] Appointment Type:CV OV Appointment Date:03/30/2022 02:00:00 PM Scheduled Provider: Location:[facility] Appointment Type:CV Procedure - Echo (Adult) Future Scheduled Tests Laboratory* Complete Blood Count 12/09/21 * Complete Metabolic Panel 12/09/21 [facility] Evaluation + Plan note Future Appointments Appointment Date:02/12/2022 11:00:00 AM Scheduled Provider:CHELA BHANDARI DO Location:[facility] Appointment Type:PC OV Appointment Date:02/17/2022 03:45:00 PM Scheduled Provider: Location:[facility] Appointment Type:CV OV Appointment Date:03/30/2022 02:00:00 PM Scheduled Provider: Location:[facility] Appointment Type:CV Procedure - Echo (Adult) [facility] Evaluation + Plan note Future Appointments Appointment Date:03/20/2022 08:45:00 AM Scheduled Provider: Location:[facility] Appointment Type:CV OV Appointment Date:03/30/2022 02:00:00 PM Scheduled Provider: Location:[facility] Appointment Type:CV Procedure - Echo (Adult) Appointment Date:05/15/2022 08:00:00 AM Scheduled Provider:CHELA BHANDARI DO Location:[facility] Appointment Type:PC OV Future Scheduled Tests Laboratory* Basic Metabolic Panel 03/10/22 * A1C Hemoglobin 05/15/22 * Lipid Profile 03/10/22 * Vitamin D Level 05/15/22 * Complete Metabolic Panel 05/15/22 * N-Terminal proBNP 03/10/22 [facility] Evaluation + Plan note Future Appointments Appointment Date:03/09/2022 03:45:00 PM Scheduled Provider: Location:[facility] [place] Appointment Type:CV OV Appointment Date:03/20/2022 08:45:00 AM Scheduled Provider: Location:[facility] Appointment Type:CV OV Appointment Date:03/30/2022 02:00:00 PM Scheduled Provider: Location:[facility] Appointment Type:CV Procedure - Echo (Adult) Appointment Date:05/15/2022 08:00:00 AM Scheduled Provider:CHELA BHANDARI DO Location:[facility] Appointment Type:PC OV Future Scheduled Tests Laboratory* Basic Metabolic Panel 03/10/22 * A1C Hemoglobin 05/15/22 * Lipid Profile 03/10/22 * Vitamin D Level 05/15/22 * Complete Metabolic Panel 05/15/22 * N-Terminal proBNP 03/10/22 [facility] Evaluation + Plan note Future Appointments Appointment Date:03/09/2022 03:45:00 PM [facility]uled [facility] Type[facility]CV OV Appointment Date:03/20/2022 08:45:00 AM Scheduled Provider: Location:[facility] Appointment Type:CV OV Appointment Date:03/30/2022 02:00:00 PM Scheduled Provider: Location:[facility] Appointment Type:CV Procedure - Echo (Adult) Appointment Date:05/15/2022 08:00:00 AM Scheduled Provider:CHELA BHANDARI DO Location:[facility] Appointment Type:PC OV Future Scheduled Tests Laboratory* A1C Hemoglobin 05/15/22 * Vitamin D Level 05/15/22 * Complete Metabolic Panel 05/15/22 [facility] Evaluation + Plan note Future Appointments Appointment Date:03/20/2022 08:45:00 AM Scheduled Provider: Location:[facility] Appointment Type:CV OV Appointment Date:03/30/2022 02:00:00 PM Scheduled Provider: Location:[facility] Appointment Type:CV Procedure - Echo (Adult) Appointment Date:05/15/2022 08:00:00 AM Scheduled Provider:CHELA BHANDARI DO Location:[facility] Appointment Type:PC OV Future Scheduled Tests Laboratory* A1C Hemoglobin 05/15/22 * Vitamin D Level 05/15/22 * Complete Metabolic Panel 05/15/22 [facility] Evaluation + Plan note Future Appointments Appointment Date:03/30/2022 02:00:00 PM Scheduled Provider: Location:[facility] Appointment Type:CV Procedure - Echo (Adult) Appointment Date:05/01/2022 08:45:00 AM Scheduled Provider: Location:[facility] Appointment Type:CV OV Appointment Date:05/15/2022 08:00:00 AM Scheduled Provider:CHELA BHANDARI DO Location:[facility] Appointment Type:PC OV Diagnostic Tests Pending * Ferritin 03/20/22 * Transferrin 03/20/22 Future Scheduled Tests Laboratory* A1C Hemoglobin 05/15/22 * Cortisol Drawn in AM 03/20/22 * Vitamin D Level 05/15/22 * Complete Metabolic Panel 05/15/22 * N-Terminal proBNP 04/10/22 Radiology* MRI Cardiac Morph W+W/O Cont Flow/Veloc 03/20/22 [facility] evaluation + Plan note Future Appointments Appointment Date:03/30/2022 02:00:00 PM Scheduled Provider: Location:[facility] Appointment Type:CV Procedure - Echo (Adult) Appointment Date:04/21/2022 04:30:00 PM Scheduled Provider: Location:[facility] Appointment Type:MRI Cardiac Morph W+W/O Cont Flow/Veloc Appointment Date:05/01/2022 08:45:00 AM Scheduled Provider: Location:[facility] Appointment Type:CV OV Appointment Date:05/15/2022 08:00:00 AM Scheduled Provider:CHELA BHANDARI DO Location:[facility] Appointment Type:PC OV Future Scheduled Tests Laboratory* A1C Hemoglobin 05/15/22 * Vitamin D Level 05/15/22 * Complete Metabolic Panel 05/15/22 * N-Terminal proBNP 04/10/22 Radiology* MRI Cardiac Morph W+W/O Cont Flow/Veloc 04/21/22 [facility] Evaluation + Plan note Future Appointments Appointment Date:04/03/2022 03:00:00 PM Scheduled Provider: Location:[facility] Appointment Type:INF Infusion: Venofer (1 Hour) Appointment Date:04/21/2022 04:30:00 PM Scheduled Provider: Location:[facility] Appointment Type:MRI Cardiac Morph W+W/O Cont Flow/Veloc Appointment Date:05/01/2022 08:45:00 AM Scheduled Provider: Location:[facility] Appointment Type:CV OV Appointment Date:05/15/2022 08:00:00 AM Scheduled Provider:CHELA BHANDARI DO Location:[facility] Appointment Type:PC OV Future Scheduled Tests Laboratory* A1C Hemoglobin 05/15/22 * Vitamin D Level 05/15/22 * Complete Metabolic Panel 05/15/22 * N-Terminal proBNP 04/10/22 Radiology* MRI Cardiac Morph W+W/O Cont Flow/Veloc 04/21/22 [facility] Evaluation + Plan note Future Appointments Appointment Date:04/21/2022 04:30:00 PM Scheduled Provider: Location:[facility] Appointment Type:MRI Cardiac Morph W+W/O Cont Flow/Veloc Appointment Date:05/01/2022 08:45:00 AM Scheduled Provider: Location:[facility] Appointment Type:CV OV Appointment Date:05/15/2022 08:00:00 AM Scheduled Provider:CHELA BHANDARI DO Location:[facility] Appointment Type:PC OV Future Scheduled Tests Laboratory* A1C Hemoglobin 05/15/22 * Vitamin D Level 05/15/22 * Complete Metabolic Panel 05/15/22 * N-Terminal proBNP 04/10/22 Radiology* MRI Cardiac Morph W+W/O Cont Flow/Veloc 04/21/22 [facility] evaluation + Plan note Future Appointments Appointment Date:05/01/2022 08:45:00 AM Scheduled Provider: Location:[facility] Appointment Type:CV OV Appointment Date:05/15/2022 08:00:00 AM Scheduled Provider:CHELA BHANDARI DO Location:[facility] Appointment Type:PC OV Future Scheduled Tests Laboratory* A1C Hemoglobin 05/15/22 * Vitamin D Level 05/15/22 * Complete Metabolic Panel 05/15/22 [facility] Evaluation + Plan note Future Appointments Appointment Date:05/08/2022 12:45:00 PM Scheduled Provider: Location:[facility] Appointment Type:CV CISCO 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 INTERNETWORK 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 Appointment Date:05/15/2022 08:00:00 AM Scheduled Provider:CHELA BHANDARI DO Location:[facility] Appointment Type:PC OV Appointment Date:06/09/2022 11:30:00 AM Scheduled Provider: Location:[facility] Appointment Type:CV OV Appointment Date:06/17/2022 02:30:00 PM Scheduled Provider: Location:[facility] Appointment Type:CV CISCO CERTIFIED INTERNETWORK EXPERT Future Scheduled Tests Laboratory* A1C Hemoglobin 05/15/22 * Vitamin D Level 05/15/22 * Complete Metabolic Panel 05/15/22 * N-Terminal proBNP 08/01/22 [facility] Evaluation + Plan note Future Appointments Appointment Date:05/29/2022 03:00:00 PM Scheduled Provider: Location:[facility] Appointment Type:CV OV Incision Check Appointment Date:06/09/2022 11:30:00 AM Scheduled Provider: Location:[facility] Appointment Type:CV OV Appointment Date:06/09/2022 01:30:00 PM Scheduled Provider:CHELA BHANDARI DO Location:[facility] Appointment Type:PC OV Appointment Date:06/17/2022 02:30:00 PM Scheduled Provider: Location:[facility] Appointment Type:CV CISCO CERTIFIED INTERNETWORK EXPERT Appointment Date:09/01/2022 03:30:00 PM Scheduled Provider: Location:[facility] Appointment Type:CV Office Procedure ICD Appointment Date:12/01/2022 08:00:00 AM Scheduled Provider: Location:[facility] Appointment Type:CV Remote Procedure HM Diagnostic Tests Pending * Urine Culture 05/22/22 Future Scheduled Tests Laboratory* A1C Hemoglobin 05/15/22 * Vitamin D Level 05/15/22 * Complete Metabolic Panel 05/15/22 * N-Terminal proBNP 08/01/22 [facility] Evaluation + Plan note Future Appointments Appointment Date:06/09/2022 11:30:00 AM Scheduled Provider: Location:[facility] Appointment Type:CV OV Appointment Date:06/09/2022 01:30:00 PM Scheduled Provider:CHELA BHANDARI DO Location:[facility] Appointment Type:PC OV Appointment Date:09/01/2022 03:30:00 PM Scheduled Provider: Location:[facility] Appointment Type:CV Office Procedure ICD Appointment Date:12/01/2022 08:00:00 AM Scheduled Provider: Location:[facility] Appointment Type:CV Remote Procedure HM Future Scheduled Tests Laboratory* Basic Metabolic Panel 06/01/22 * N-Terminal proBNP 06/01/22 * N-Terminal proBNP 08/01/22 [facility] Evaluation + Plan note Future Appointments Appointment Date:09/01/2022 03:30:00 PM Scheduled Provider: Location:[facility] Appointment Type:CV Office Procedure ICD Appointment Date:09/08/2022 02:00:00 PM Scheduled Provider:CHELA BHANDARI DO Location:[facility] Appointment Type:PC OV Appointment Date:12/01/2022 08:00:00 AM Scheduled Provider: Location:[facility] Appointment Type:CV Remote Procedure HM Future Scheduled Tests Laboratory* Lipid Profile 12/10/22 * N-Terminal proBNP 08/01/22 * N-Terminal proBNP 09/09/22 * N-Terminal proBNP 12/10/22 [facility] Evaluation + Plan note Future Appointments Appointment Date:07/23/2022 03:00:00 PM Scheduled Provider:CHELA BHANDARI DO Location:[facility] Appointment Type:PC OV Appointment Date:09/01/2022 03:30:00 PM Scheduled Provider: Location:[facility] Appointment Type:CV Office Procedure ICD Appointment Date:09/08/2022 02:00:00 PM Scheduled Provider:CHELA BHANDARI DO Location:[facility] Appointment Type:PC OV Appointment Date:12/01/2022 08:00:00 AM [...] N-Terminal proBNP 09/09/22 * N-Terminal proBNP 12/10/22 [facility] Evaluation + Plan note Future Appointments Appointment Date:07/23/2022 03:00:00 PM Scheduled Provider:CHELA BHANDARI DO Location:[facility] Appointment Type:PC OV Appointment Date:09/01/2022 03:30:00 PM Scheduled Provider: Location:[facility] Appointment Type:CV Office Procedure ICD Appointment Date:09/08/2022 02:00:00 PM Scheduled Provider:CHELA BHANDARI DO Location:[facility] Appointment Type:PC OV Appointment Date:12/01/2022 08:00:00 AM [...] N-Terminal proBNP 09/09/22 * N-Terminal proBNP 12/10/22 [facility] Evaluation + Plan note Future Appointments Appointment Date:09/01/2022 03:30:00 PM Scheduled Provider: Location:[facility] Appointment Type:CV Office Procedure ICD Appointment Date:09/08/2022 02:00:00 PM Scheduled Provider:CHELA BHANDARI DO Location:[facility] Appointment Type:PC OV Appointment Date:12/01/2022 08:00:00 AM [...] N-Terminal proBNP 09/09/22 * N-Terminal proBNP 12/10/22 [facility] Evaluation + Plan note Future Appointments Appointment Date:12/01/2022 08:00:00 AM Scheduled Provider: Location:[facility] Appointment Type:CV Remote Procedure HM Appointment Date:12/08/2022 02:45:00 PM Scheduled Provider:CHELA BHANDARI DO Location:[facility] Appointment Type:PC OV Future Scheduled Tests Laboratory* [...] 12/10/22 Radiology* CT Thorax w/o Contrast 09/08/22 [facility] Evaluation + Plan note Future Appointments Appointment Date:12/01/2022 08:00:00 AM Scheduled Provider: Location:[facility] Appointment Type:CV Remote Procedure HM Appointment Date:12/08/2022 02:45:00 PM Scheduled Provider:CHELA BHANDARI DO Location:[facility] Appointment Type:PC OV Future Scheduled Tests Laboratory* [...] N-Terminal proBNP 12/09/22 * N-Terminal proBNP 12/10/22 [facility] Evaluation + Plan note Future Appointments Appointment Date:12/01/2022 08:00:00 AM Scheduled Provider: Location:[facility] Appointment Type:CV Remote Procedure Appointment Date:12/08/2022 02:45:00 PM Scheduled Provider:CHELA BHANDARI DO Location:[facility] Appointment Type:PC OV Future Scheduled Tests Laboratory* [...] N-Terminal proBNP 01/28/23 * N-Terminal proBNP 12/10/22 [facility] Evaluation + Plan note Future Appointments Appointment Date:11/30/2022 03:30:00 PM Scheduled Provider:ADRIENNE BYERS DO Location:[facility] Appointment Type:PC OV Appointment Date:12/01/2022 08:00:00 AM Scheduled Provider: Location:[facility] Appointment Type:CV Remote Procedure HM Appointment Date:12/08/2022 02:45:00 PM Scheduled Provider:CHELA BHANDARI DO Location:[facility] Appointment Type:PC OV Diagnostic Tests Pending * [...] N-Terminal proBNP 01/28/23 * N-Terminal proBNP 12/10/22 [facility] Evaluation + Plan note Future Appointments Appointment Date:12/08/2022 03:00:00 PM Scheduled Provider:CHELA BHANDARI DO Location:[facility] Appointment Type:PC OV Appointment Date:03/12/2023 11:45:00 AM [...] N-Terminal proBNP 01/28/23 * N-Terminal proBNP 12/10/22 [facility] Evaluation + Plan note Future Appointments Appointment Date:03/12/2023 11:45:00 AM Scheduled Provider: Location:[facility] Appointment Type:CV Remote Procedure HM Appointment Date:03/23/2023 02:30:00 PM Scheduled Provider:CHELA BHANDARI DO Location:[facility] Appointment Type:PC OV Future Scheduled Tests Laboratory* [...] N-Terminal proBNP 12/09/22 * N-Terminal proBNP 01/28/23 [facility] Evaluation + Plan note Future Appointments Appointment Date:03/12/2023 11:45:00 AM Scheduled Provider: Location:[facility] Appointment Type:CV Remote Procedure HM Appointment Date:03/24/2023 02:30:00 PM Scheduled Provider:ADRIENNE BYERS DO Location:[facility] Appointment Type:PC OV Future Scheduled Tests Laboratory* [...] N-Terminal proBNP 12/09/22 * N-Terminal proBNP 01/28/23 [facility] Evaluation + Plan note Future Appointments Appointment Date:05/18/2023 10:00:00 AM Scheduled Provider: Location:[facility] Appointment Type:CV OV Appointment Date:06/29/2023 09:45:00 AM Scheduled Provider: Location:[facility] Appointment Type:CV Remote Procedure HM Appointment Date:07/29/2023 02:45:00 PM Scheduled Provider:ADRIENNE BYERS DO Location:[facility] Appointment Type:PC Wellness Annual Future Scheduled Tests [...] N-Terminal proBNP 12/09/22 * N-Terminal proBNP 01/28/23 [facility] Evaluation + Plan note Future Appointments Appointment Date:06/29/2023 09:45:00 AM Scheduled Provider: Location:[facility] Appointment Type:CV Remote Procedure Appointment Date:07/29/2023 02:45:00 PM Scheduled Provider:ADRIENNE BYERS DO Location:[facility] Appointment Type:PC Wellness Annual Future Scheduled [...] 01/28/23 Radiology* CT Thorax w/o Contrast 11/24/23 [facility] Evaluation + Plan note Future Appointments [...] 01/28/23 Radiology* CT Thorax w/o Contrast 11/24/23 [facility] Evaluation + Plan note Future Appointments Appointment Date:08/16/2023 03:30:00 PM Scheduled Provider: Location:[facility] Appointment Type:DB Diabetic Individual Visit (AOH) Appointment [...] 01/28/23 Radiology* CT Thorax w/o Contrast 11/24/23 [facility] Evaluation + Plan note Future Appointments [...] 01/28/23 Radiology* CT Thorax w/o Contrast 11/24/23 [facility] Evaluation + Plan note Future Appointments [...] 01/28/23 Radiology* CT Thorax w/o Contrast 11/24/23 [facility] Evaluation + Plan note Future Appointments Appointment Date:10/28/2023 01:00:00 PM Scheduled Provider: Location:[facility] Appointment Type:OT Outpatient Evaluation Appointment Date:10/29/2023 11:30:00 AM Scheduled Provider:ADRIENNE BYERS DO Location:[facility] Appointment Type:PC OV TCM 30 Appointment Date:11/02/2023 10:45:00 AM Scheduled Provider: Location:[facility] Appointment Type:CV OV Appointment Date:11/10/2023 10:30:00 AM [...] 01/28/23 Radiology* CT Thorax w/o Contrast 11/24/23 [facility] Evaluation + Plan note Future Appointments Appointment Date:12/30/2023 01:30:00 PM Scheduled Provider: Location:[facility] Appointment Type:OT Treatment Appointment Date:01/03/2024 01:30:00 PM Scheduled Provider: Location:[facility] Appointment Type:OT Treatment Appointment Date:02/21/2024 02:30:00 PM Scheduled Provider:ADRIENNE BYERS DO Location:[facility] Appointment Type:PC OV Appointment Date:03/03/2024 02:45:00 PM [...] 01/28/23 Radiology* CT Thorax w/o Contrast 11/24/23 [facility] Evaluation + Plan note Future Appointments Appointment Date:02/21/2024 02:30:00 PM Scheduled Provider:ADRIENNE BYERS DO Location:[facility] Appointment Type:PC OV Appointment Date:03/03/2024 02:45:00 [...] 01/28/23 Radiology* CT Thorax w/o Contrast 11/24/23 [facility] Evaluation + Plan note Future Appointments Appointment Date:06/06/2024 08:30:00 AM Scheduled Provider: Location:[facility] Appointment Type:CV OV Appointment Date:06/16/2024 10:00:00 AM Scheduled Provider: Location:[facility] Appointment Type:CV Remote Procedure Appointment Date:06/23/2024 01:30:00 PM Scheduled Provider:ADRIENNE BYERS DO [facility] Appointment Type:PC OV Future Scheduled Tests Laboratory* Basic Metabolic Panel 06/11/23 * Urinalysis 04/29/23 * Lipid Profile 05/03/24 * Albumin/Creatinine Ratio, Random Urine 04/29/23 * Albumin/Creatinine Ratio, Random Urine 02/25/24 * N-Terminal proBNP 05/03/24 Radiology* CT Thorax w/o Contrast 11/24/23 [facility] Evaluation + Plan note Future Appointments Appointment Date:06/06/2024 08:30:00 AM Scheduled Provider: Location:[facility] Appointment Type:CV OV Appointment Date:06/16/2024 10:00:00 AM Scheduled Provider: Location:[facility] Appointment Type:CV Remote Procedure Appointment Date:06/23/2024 01:30:00 PM Scheduled Provider:ADRIENNE BYERS DO Location:[facility] Appointment Type:[facility] OV Appointment Date:12/07/2024 03:00:00 PM Scheduled Provider:ADRIENNE BYERS DO Location:[facility] Appointment Type:[facility] [employer] Future Scheduled Tests Laboratory* Basic Metabolic Panel 06/11/23 * Albumin/Creatinine Ratio, Random Urine 02/25/24 Radiology* CT Thorax w/o Contrast 11/24/23 [facility] Evaluation note* Diagnosis Tremor of left hand- Primary [facility] Diagnosis Parkinsonism, unspecified Parkinsonism type (HCC)- Primary Tremor of left hand [facility] 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 Parkinson disease (HCC) Paralysis agitans Nocturnal muscle cramp Cramp of limb [facility] Diagnosis Tremor of left hand [facility]* Diagnosis History of stroke- Primary Transient ischemic attack (TIA), and cerebral infarction without residual deficits Spasticity Abnormal involuntary movements Spastic hemiparesis (HCC) Spastic hemiplegia affecting unspecified side [facility]* 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 Parkinsonism, unspecified Parkinsonism type (HCC) documented [facility] noteNo assessment information availableW[facility] Work Phone: Evaluation note* Diagnosis Onset Date Resolution Status Cerebrovascular disease acut e CVA (cerebral vascular accident) acute AV node dysfunction acute Ischemic cardiomyopathy acut e Presence of biventricular im plantable cardioverter-defibrillator acute [facility] Work Phone: Evaluation note* Diagnosis Onset Date Resolution Status Cerebrovascular disease acut e CVA (cerebral vascular accident) acute AV node dysfunction acute Ischemic cardiomyopathy acut e Presence of biventricular im plantable cardioverter-defibrillator acute Anxiety acute CVA (cerebral vascular accident) acute Debility acute Depression acute Diabetes mellitus acute GERD (gastroesophageal reflux disease) acute Muscle spasm acute Overactive bladder acute Transient ischemic attack ac deering Vitamin D deficiency acute HLD (hyperlipidemia) chronic HTN (hypertension) chronic CVA (cerebral vascular accident) acute [facility] Work Phone: Evaluation note* Diagnosis Onset Date Resolution Status Cerebrovascular disease acut e AV node dysfunction acute Ischemic cardiomyopathy acut e Presence of biventricular im plantable cardioverter-defibrillator acute Anxiety acute Debility acute Depression acute Diabetes mellitus acute GERD (gastroesophageal reflux disease) acute Muscle spasm acute Overactive bladder acute Transient ischemic attack ac deering Vitamin D deficiency acute HLD (hyperlipidemia) chronic HTN (hypertension) chronic Ischemic cardiomyopathy acut e Transient ischemic attack ac deering PFO (patent foramen ovale) c [facility] Work Phone: Evaluation note* Diagnosis Essential tremor- Primary Essential and other specified forms of tremor Tremor of left hand documented [facility]* Diagnosis Onset Date Resolution Status Cerebrovascular [...] acut e PFO (patent foramen ovale) c [facility] Work Phone: Evaluation note* Diagnosis Onset Date Resolution Status Colitis acute Gastrointestinal bleeding, lower acute [facility] Work Phone: Evaluation note* Diagnosis Onset Date [...] vascular accident) resolved Gastrointestinal bleeding, lower resolved [facility] Work Phone: Evaluation note* Diagnosis History of stroke- Primary Transient ischemic attack (TIA), and cerebral infarction without residual deficits Spasticity Abnormal involuntary movements documented [facility]* Diagnosis Other constipation [facility] Diagnosis Other constipation- Primary Other constipation [facility]* Diagnosis Dizziness and giddiness [facility]* Diagnosis Other forms of dyspnea [facility]* Diagnosis Other forms of dyspnea- Primary [facility]* Diagnosis Dizziness and giddiness- Primary Dizziness and giddiness documented in this [facility]* Diagnosis Tardive dyskinesia- Primary Subacute dyskinesia due to drugs documented [facility]* Diagnosis Essential tremor- Primary Essential and other specified forms of tremor Dyskinesia, tardive Subacute dyskinesia due to drugs documented [facility] this [facility]* Diagnosis Presence of cardiac pacemaker Cardiac pacemaker in situ documented in this encounter [facility] note* Diagnosis Essential tremor Essential and other specified forms of tremor Dyskinesia, tardive Subacute dyskinesia due to drugs documented [facility] this [facility]* Diagnosis Tardive dyskinesia- Primary Subacute dyskinesia due to drugs documented in this encounter [facility] note* Diagnosis Chronic systolic (congestive) heart failure (HCC) documented [facility] Author Jaci Greco [facility] October 07, 2023 2:38pm Note Date/Time October 07, 2023 1:59pm [facility] Medical Records Department [address] [place] [id number] H&P Exam - Hospitalist 10/07/23 1355 MR#: [id number] Acct: [id number] Name: MANSI CARO Rep #:[id number] : [...] and Plavix who now re-presents to the [facility] ED on 10/07/23 with history of stroke [...] patient administered baclofen 10 mg p.o. x1. [facility] Medical History (Updated 10/07/23 @ 14:[address] Jaci Greco MD) Anxiety and depression AV node dysfunction Cardiac resynchronization therapy defibrillator (CORNICE UPHOLSTERER-D) in place Cerebral palsy Coronary artery disease [...] (Auto) 41.7 L, Lymph % (Auto) 47.6 H,[place] % (Auto) 9.0, Eos % (Auto) 0.9, [...] and Plavix who now re-presents to the [facility] ED on 10/07/23 with history of stroke [...] 16 minutes. Charges/Coding Visit Charges Inpatient E&M: 05296 Init Hosp L3 Procedures Hospitalists Procedures: 58120 Advncd Care Plan 30 Min 10/07/23 1438 <Electronically signed by Jaci Greco MD> Cosigner Signature (if applicable): CC: Dr. Jaci Greco MD; Dr. Adrienne Byers, DO~ Signed [facility] Work Phone: History and physical note Author Ben Johnson [facility] February 21, 2024 9:35pm Note Date/Time February 21, 2024 9:35 pm [facility] Medical Records Department [address] [place] [address] H&P Exam - Hospitalist 02/21/242124 MR#: [id number] Acct: [id number] Name: MANSI CARO Rep #:[id number] : 1955 69 From: Ben Johnson DO PCP: Dr. Adrienne Byers DO Status:ADM IN Location: [id number] HPI - General General Date of Admission: 02/21/24 Date of Service: 02/21/24 Chief Complaint: Abdominal pain, bright red blood in stool HPI Narrative MANSI CARO, is a 69 F who presents to the emergency room at [facility] for evaluation of right red rectal bleeding [...] neoplastic component. Patient will be admitted to [place] [address], she will be placed on IV antibiotics, shewill be seen by gastroenterology, she may need endoscopic procedures. Labs willbe monitored. [facility] Medical History Anxiety and depression AV node dysfunction Cardiac resynchronization therapy defibrillator (CORNICE UPHOLSTERER-D) in place Cerebral palsy Congestive heart failure [...] (Auto) 88.4 H, Lymph % (Auto) 5.3L, [place] % (Auto) 5.5, Eos % (Auto) 0.0, [...] Clarity Clear, Urine pH 5.0, Ur Specific [place] 1.015, Urine Protein 15 H, Urine Glucose [...] Colitis-etiology unclear, patient [facility] be admitted to [facility], she was placed on IV antibiotics [...] able to exclude underlying solid neoplastic component. [facility] will need to arrange this. Total clinical time spent by myself addressing the patient's medical issues, reviewing all of her data, and collaborating with patient's care team: 75 minutes Charges/Coding Visit Charges Inpatient E&M: 50420 Init Hosp L3 02/21/242134 <Electronically signed by Ben Johnson DO> Cosigner Signature (if applicable): CC: Dr. Ben Johnson, DO; Dr. Adrienne Byers, DO~ Signed [facility] Work Phone: Hospital course Narrative No data available for this section [facility] Discharge instructions No data available for this section [facility] Discharge instructions Additional Instructions Follow-up at your PCP appointment on Wednesday and return for any worsening of your symptoms. Stay well-hydrated, you can take either MiraLAX or Dulcolax for your constipation. [facility] Work Phone: Hospital Discharge instructions Additional Instructions You can take [id number] pain relievers or your oxycodone as needed for breakthrough pain. Follow-up with your primary [facility] doctor[facility] Work Phone: Hospital Discharge instructionsAdditional Instructions Follow-up your doctor in outpatient setting. Take antibiotics for your urinary tract infection as prescribed use other antibiotics as prescribed as well. Return with worsening symptoms or any concerns. 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 for visit Narrative* Diagnostic Procedure Only (Routine) - Closed Specialty Diagnoses / Procedures Referred By Oni angel Referred To Contact Radiology / RADIO CT SCAN Diagnoses Solitary pulmonary nodule CT CHEST W/O CONTRAST R91.1 pulmonary nodule ORDER IN SCANNED DOCS AUTH # [id number] VALID 07.12.24 TO 09.10.24 Procedures DIAGNOSTIC COMPUTED TOMOGRAPHY THORAX W/O CNTRST CT WO CH 400 Shahram Pillai V, MD [address] [facility] [address] [place] [address] Referral ID Status Reason Start Date Expiration Date Visits Re quested Visits Authorized [id number] Closed 07/12/2024 09/10/2024 [address] [facility] for visit Narrative* Imaging (Routine) - Closed Specialty Diagnoses / Procedures Referred By Oni angel Referred To Contact Cardiology Diagnoses Dizziness and giddiness Procedures Vascular US carotid artery duplex bilateral Pina Hernandez [address] [place] [address] Phone: tel: fax: Referral ID Status Reason Start Date Expiration Date Visits Re quested Visits Authorized [id number] Closed 11/07/2024 11/07/2025 1 1 [facility] for visit Narrative* (Routine) - Pending Review Specialty Diagnoses / Procedures Referred By Oni angel Referred To Contact Diagnoses Other forms of dyspnea Procedures Complete PFT pre and post bronchodilator Marci Nuñez [address] [place] [address] Phone: tel: fax: Referral ID Status Reason Start Date Expiration Date V isits Requested Visits Authorized [id number] Pending Review 10/13/2024 10/08/2025 1 1 [facility] for visit Narrative* MRI/CT (Routine) - Authorized Specialty Diagnoses / Procedures Referred By Oni angel Referred To Contact Radiology / RADIO CT SCAN Diagnoses Other nonspecific abnormal finding of lung field CT Chest wo contrast DX: R91.8 Auth# [id number] Order scanned into chart on 01/05/2025 Procedures DIAGNOSTIC COMPUTED TOMOGRAPHY THORAX W/O CNTRST CT WO CH 400 Kalen Izaguirre MD [address] [address] Phone: tel: fax: RADIO CT SCAN [facility] [address] [place] [address] Phone: tel: fax: Referral ID Status Reason Start Date Expiration Date V isits Requested Visits Authorized [id number] Authorized 01/02/2025 03/03/2025 [address] [facility] for visit Narrative* MRI/CT (Routine) - Closed Specialty Diagnoses / Procedures Referred By Contac t Referred To Contact MR IMAGING Diagnoses Essential tremor Dyskinesia, tardive Procedures MRI BRAIN WO IVCON MRI BRAIN BRAIN STEM W/O CONTRAST MATERIAL Nicolette Murphy MD [address] [place] [address] Phone: tel: fax: [place] [address] Referral ID Status Reason Start Date Expiration Date V isits Requested Visits Authorized [id number] Closed Auto-Generate d Referral 03/23/2025 05/22/2025 1 1 [facility] Summary Purpose Family History Relationship Condition Age at Onset Recorded Date/T [...] Suicide and self-inflicted injury Unknown Advance Directives Advance Directive Response Recorded Date/ Time Advance Directives Yes May 18 7:27pm Living Will Yes September 28 8:21pm Power of Administrative Support Specialist Yes September 28, 2023 8:21pm Name of Medical Power of Administrative Support Specialist BEATRICE PENA September 28, 2023 8:21pm Advance Directive Response Recorded Date/ Time Name of Medical Power of Administrative Support Specialist Song mace September 28, 2023 10:25pm Advance Directives Yes May 18 7:27pm Living Will Yes September 28 10:25pm Power of Administrative Support Specialist Yes September 28, 2023 10:25pm Advance Directive Response Recorded Date/ Time Name of Medical Power of Administrative Support Specialist Song mace September 28, 2023 10:25pm Name of Medical Power of Administrative Support Specialist griffin Naqvi October 04, 2023 1:28pm Name of Medical Power of Administrative Support Specialist spouse October 07, 2023 1:12pm Advance Directives Yes May 18 7:27pm Living Will Yes October 07, 2 023 1:12pm Power of Administrative Support Specialist Yes October 07, 2023 1:12pm Advance Directive Response Recorded Date/ Time Name of Medical Power of Administrative Support Specialist Song mace September 28, 2023 10:25pm Name of Medical Power of Administrative Support Specialist griffin Naqviband October 04, 2023 1:28pm Name of Medical Power of Administrative Support Specialist spouse October 07, 2023 3:14pm Advance Directives Yes May 18 7:27pm Living Will Yes October 07, 2 023 3:14pm Power of Administrative Support Specialist Yes October 07, 2023 3:14pm Advance Directive Response Recorded Date/ Time Name of Medical Power of Administrative Support Specialist Song mace September 28, 2023 10:25pm Name of Medical Power of Administrative Support Specialist griffin Naqviband October 04, 2023 1:28pm Name of Medical Power of Administrative Support Specialist spouse October 07, 2023 3:14pm Name of Medical Power of Administrative Support Specialist Song Ramírez December 08, 2023 3:46pm Advance Directives Yes May 18 7:27pm Living Will Yes December 08 3:46pm Power of Administrative Support Specialist Yes December 08, 2023 3:46pm Advance Directive Response Recorded Date/ Time Name of Medical Power of Administrative Support Specialist Song Ramírez December 08, 2023 4:46pm Advance Directives Yes May 18 8:27pm Living Will No February 19, 2024 4:09pm Power of Administrative Support Specialist No February 18 4:09pm Advance Directive Response Recorded Date/ Time Name of Medical Power of Administrative Support Specialist Songdhruv Ortizsherlynkatelynn December 08, 2023 4:46pm Advance Directives Yes May 18 8:27pm Living Will No February 21, 2024 3:03pm Power of Administrative Support Specialist No February 20 3:03pm Advance Directive Response Recorded Date/ Time Name of Medical Power of Administrative Support Specialist Song Desiree December 08, 2023 4:46pm Name of Medical Power of Administrative Support Specialist Song Ortiztamikanatalia nakita February 21, 2024 10:15pm Advance Directives Yes May 18 8:27pm Living Will Yes February 21, 2024 10:15pm Power of Administrative Support Specialist Yes February 20 10:15pm Advance Directive Response Recorded Date/ Time Name of Medical Power of Administrative Support Specialist Song Ramírez December 08, 2023 4:46pm Name of Medical Power of Administrative Support Specialist Song mace February 21, 2024 10:15pm Name of Medical Power of Administrative Support Specialist eris Cuello March 08, 2024 4:39pm Advance Directives Yes May 18 8:27pm Living Will Yes March 08, 2024 4:39pm Power of Administrative Support Specialist Yes March 08 4:39pm Advance Directive Response Recorded Date/ Time Living Will Yes July 03 7:58pm Do you have a Healthcare Power of Administrative Support Specialist? Yes July 03, 2024 7:58pm Advance Directives Yes October 2:46pm Living Will Yes September 09 2:39pm Do you have a Healthcare Power of Administrative Support Specialist? Yes September 09, 2024 2:39pm Living Will No November 18 3:39pm Do you have a Healthcare Power of Administrative Support Specialist? No November 18, 2024 3:39pm Living Will No March 10, 2025 11:55am Do you have a Healthcare Power of Administrative Support Specialist? No March 10, 2025 11:55am Advance Directive Response Recorded Date/ Time Living Will Yes July 03 7:58pm Do you have a Healthcare Power of Administrative Support Specialist? Yes July 03, 2024 7:58pm Advance Directives Yes October 2:46pm Living Will No March 10, 2025 11:55am Do you have a Healthcare Power of Administrative Support Specialist? No March 10, 2025 11:55am Advance Directive Response Recorded Date/ Time Living Will Yes July 03 7:58pm Do you have a Healthcare Power of Administrative Support Specialist? Yes July 03, 2024 7:58pm Living Will No March 10, 2025 11:55am Do you have a Healthcare Power of Administrative Support Specialist? No March 10, 2025 11:55am Do you have a Healthcare Power of Administrative Support Specialist? Yes April 19, 2025 3:35am Advance Directives Yes October 2:46pm Advance Directive Response Recorded Date/ Time Living Will Yes July 03 7:58pm Do you have a Healthcare Power of Administrative Support Specialist? Yes July 03, 2024 7:58pm Living Will No March 10, 2025 11:55am Do you have a Healthcare Power of Administrative Support Specialist? No March 10, 2025 11:55am Do you have a Healthcare Power of Administrative Support Specialist? Yes April 19, 2025 1:19pm Advance Directives Yes October 2:46pm Advance Directive Response Recorded Date/ Time Living Will Yes July 03 7:58pm Do you have a Healthcare Pow er of Administrative Support Specialist? Yes July 03, 2024 7:58pm Do you have a Healthcare Pow er of Administrative Support Specialist? No April 23, 2025 4:09pm Do you have a Healthcare Pow er of Administrative Support Specialist? Yes April 24, 2025 3:39pm Name of Medical Power of Administrative Support Specialist Song mace, April 24, 2025 3:39pm Living Will No March 10, 2025 11:55am Do you have a Healthcare Pow er of Administrative Support Specialist? No March 10, 2025 11:55am Do you have a Healthcare Pow er of Administrative Support Specialist? Yes April 19, 2025 1:19pm Advance Directives Yes October 2:46pm Advance Directive Response Recorded Date/ Time Living Will Yes July 03 7:58pm Do you have a Healthcare Pow er of Administrative Support Specialist? Yes July 03, 2024 7:58pm Do you have a Healthcare Pow er of Administrative Support Specialist? No April 23, 2025 4:09pm Do you have a Healthcare Pow er of Administrative Support Specialist? Yes April 24, 2025 3:39pm Name of Medical Power of Administrative Support Specialist Songdhruv mace, April 24, 2025 3:39pm Do you have a Healthcare Pow er of Administrative Support Specialist? No May 22, 2025 4:39pm Living Will No March 10, 2025 11:55am Do you have a Healthcare Pow er of Administrative Support Specialist? No March 10, 2025 11:55am Do you have a Healthcare Pow er of Administrative Support Specialist? Yes April 19, 2025 1:19pm Advance Directives Yes October 2:46pm Advance Directive Response Recorded Date/ Time Do you have a Healthcare Pow er of Administrative Support Specialist? No April 23, 2025 4:09pm Do you have a Healthcare Pow er of Administrative Support Specialist? Yes April 24, 2025 3:39pm Name of Medical Power of Administrative Support Specialist Song mace, April 24, 2025 3:39pm Do you have a Healthcare Pow er of Administrative Support Specialist? No May 22, 2025 4:39pm Living Will No March 10, 2025 11:55am Do you have a Healthcare Pow er of Administrative Support Specialist? No March 10, 2025 11:55am Do you have a Healthcare Pow er of Administrative Support Specialist? Yes April 19, 2025 1:19pm Advance Directives Yes October 2:46pm Reason for Referral Specialty Diagnoses / Procedures Referred By Oni angel Referred To Contact Diagnoses Tremor of left hand Essential tremor Procedures PROVIDER ORDERED FOLLOW UP OFFICE/OUTPATIENT [facility] 60-74 MINUTES Syd Ramirez MD [address] [place] [address] Referral ID Status Reason Start Date Expiration Date Visits Requested Visits Authorized [id number] Pending Review PCP Requested Referral 3 01/18/2024 1 1 Specialty Diagnoses / Procedures Referred By Oni angel Referred To Contact [facility] Diagnoses Tremor of left hand Essential tremor Procedures CONSULT TO LEAD MECHANICAL ENGINEER OCCUPATIONAL THERAPY EVAL HIGH COMPLEX 60 MINS Syd Ramirez MD [address] [place] [address] [facility] [place] [address] Referral ID Status Reason Start Date Expiration Date Visits Requested Visits Authorized [id number] Pending Review Auto-Generat ed Referral 3 10/19/2024 1 1 Specialty Diagnoses / Procedures Referred By Oni angel Referred To Contact Diagnoses Tremor of left hand Procedures PROVIDER ORDERED FOLLOW UP OFFICE/OUTPATIENT [facility] 60-74 MINUTES Syd Ramirez MD [address] [place] [address] Referral ID Status Reason Start Date Expiration Date Visits Requested Visits Authorized [id number] Authorized PCP Requested Referral 06/23/2022 06/23/2023 1 1 Specialty Diagnoses / Procedures Referred By Oni angel Referred To Contact Neurology Diagnoses Tremor of left hand Procedures CONSULT TO NEUROLOGY OFFICE/OUTPATIENT [facility] 60-74 MINUTES Ghazala Mccord MD [address] [place] [address] Referral ID Status Reason Start Date Expiration Date Visits Requested Visits Authorized [id number] Authorized PCP Requested Referral 06/04/2022 06/04/2023 1 [...] 19, 2024 2:48pm Ischemic cardiomyopathy January 18 025 1:19pm Presence of biventricular im plantable [...] Generalized weakness April 19, 2025 11:2 6am Chief Complaint Admit Date 6 M FU January 18, 2025 1:19pm [...] ON CHRONIC DEBILITY April 20, 2025 2:49pm GENERALIZED WEAKNESS April 20, 2025 4:10 pm Reason for Visit Admit Date Ischemic cardiomyopathy [...] Generalized weakness April 19, 2025 11:2 6am Calcium deficiency April 20, 2025 4:10p m CVA (cerebral vascular accident) March 4:10pm Debility April 20, 2025 4:10p m Depression April 20, 2025 4:10p m Diabetes mellitus April 20, 2025 4:10p m GERD (gastroesophageal reflux disease) M 2024 4:10pm Insomnia April 20, 2025 4:10p m Irritable bowel syndrome April 20, 2025 4:10pm Ischemic colitis April 20, 2025 4:10p m Muscle spasm April 20, 2025 4:10p m Overactive bladder April 20, 2025 4:10p m Vitamin D deficiency April 20, 2025 4:10 pm Chronic systolic heart failure April 20, 2025 4:10pm HLD (hyperlipidemia) April 20, 2025 4:10 pm Blood in stool April 25, 2025 6:41a m Irritable bowel syndrome April 25, 2025 6:41am Ischemic colitis April 25, 2025 6:41a m Chronic anemia April 25, 2025 6:41a m Chief Complaint Admit Date 6 M FU January 18, 2025 1:19pm 6 MO - LABS (DOING 1 DAY PRIOR) January 11:00am 6 MO - LABS (DOING 1 DAY PRIOR) January 1:02pm Pacer Check Remote January 29, 2025 12: 20am PELVIC PAIN (SEE US) (BMS GASTRO) February 13, 2025 9:03am blood in stool February 14, 2025 8:2 6am Fall March 10, 2025 11: 27am Pacer Check Remote April 19, 2025 12:22 am ACUTE ON CHRONIC DEBILITY April 19, 2025 11:26am ACUTE ON CHRONIC DEBILITY April 20, 2025 2:49pm GENERALIZED WEAKNESS April 20, 2025 4:10 pm Pacer Check Remote May 03, 2025 10:5 4am Chief Complaint Admit Date 6 MO - LABS (DOING 1 DAY PRIOR) January 11:00am 6 MO - LABS (DOING 1 DAY PRIOR) January 42024 1:02pm Pacer Check Remote January 29, 2025 12: 20am PELVIC PAIN (SEE US) (BMS GASTRO) February 13, 2025 9:03am blood in stool February 14, 2025 8:2 6am Fall March 10, 2025 11: 27am Pacer Check Remote April 19, 2025 12:22 am ACUTE ON CHRONIC DEBILITY April 19, 2025 11:26am ACUTE ON CHRONIC DEBILITY April 20, 2025 2:49pm GENERALIZED WEAKNESS April 20, 2025 4:10 pm Pacer Check Remote May 03, 2025 10:5 4am abd pain May 22, 2025 2:38p m Reason for Visit Admit Date Anemia January 23, 2025 1:02 pm Abdominal pain February 13, 2025 9:0 3am Pelvic pain February 13, 2025 9:0 3am Chronic constipation February 13, 2025 9: 03am Abdominal pain February 14, 2025 8:2 6am Blood in stool February 14, 2025 8:2 6am Anemia February 14, 2025 8:2 6am Chronic constipation February 14, 2025 8: 26am Generalized weakness April 19, 2025 11:2 6am Calcium deficiency April 20, 2025 4:10p m CVA (cerebral vascular accident) March 4:10pm Debility April 20, 2025 4:10p m Depression April 20, 2025 4:10p m Diabetes mellitus April 20, 2025 4:10p m GERD (gastroesophageal reflux disease) M ay 2024 4:10pm Insomnia April 20, 2025 4:10p m Irritable bowel syndrome April 20, 2025 4:10pm Ischemic colitis April 20, 2025 4:10p m Muscle spasm April 20, 2025 4:10p m Overactive bladder April 20, 2025 4:10p m Vitamin D deficiency April 20, 2025 4:10 pm Chronic systolic heart failure April 20, 2025 4:10pm HLD (hyperlipidemia) April 20, 2025 4:10 pm Blood in stool April 25, 2025 6:41a m Irritable bowel syndrome April 25, 2025 6:41am Ischemic colitis April 25, 2025 6:41a m Chronic anemia April 25, 2025 6:41a m Chief Complaint Admit Date Pacer Check Remote January 29, 2025 12: 20am PELVIC PAIN (SEE US) (BMS GASTRO) February 13, 2025 9:03am blood in stool February 14, 2025 8:2 6am Fall March 10, 2025 11: 27am Pacer Check Remote April 19, 2025 12:22 am ACUTE ON CHRONIC DEBILITY April 19, 2025 11:26am ACUTE ON CHRONIC DEBILITY April 20, 2025 2:49pm GENERALIZED WEAKNESS April 20, 2025 4:10 pm Pacer Check Remote May 03, 2025 10:5 4am abd pain May 22, 2025 2:38p m 6 M FU May 29, 2025 3:08p m Reason for Visit Admit Date Abdominal pain February 13, 2025 9:0 3am Pelvic pain February 13, 2025 9:0 3am Chronic constipation February 13, 2025 9: 03am Abdominal pain February 14, 2025 8:2 6am Blood in stool February 14, 2025 8:2 6am Anemia February 14, 2025 8:2 6am Chronic constipation February 14, 2025 8: 26am Generalized weakness April 19, 2025 11:2 6am Calcium deficiency April 20, 2025 4:10p m CVA (cerebral vascular accident) March 4:10pm Debility April 20, 2025 4:10p m Depression April 20, 2025 4:10p m Diabetes mellitus April 20, 2025 4:10p m GERD (gastroesophageal reflux disease) M ay 2024 4:10pm Insomnia April 20, 2025 4:10p m Irritable bowel syndrome April 20, 2025 4:10pm Ischemic colitis April 20, 2025 4:10p m Muscle spasm April 20, 2025 4:10p m Overactive bladder April 20, 2025 4:10p m Vitamin D deficiency April 20, 2025 4:10 pm Chronic systolic heart failure April 20, 2025 4:10pm HLD (hyperlipidemia) April 20, 2025 4:10 pm Blood in stool April 25, 2025 6:41a m Irritable bowel syndrome April 25, 2025 6:41am Ischemic colitis April 25, 2025 6:41a m Chronic anemia April 25, 2025 6:41a m Ischemic cardiomyopathy May 29, 2025 3 :08pm Presence of biventricular im plantable cardioverter-defibrillator May 29, 2025 3:08pm Presence of stent in coronary artery Sung 2024 3:08pm Chief Complaint Admit Date PELVIC PAIN (SEE US) (BMS GASTRO) February 13, 2025 9:03am blood in stool February 14, 2025 8:2 6am Fall March 10, 2025 11: 27am Pacer Check Remote April 19, 2025 12:22 am ACUTE ON CHRONIC DEBILITY April 19, 2025 11:26am ACUTE ON CHRONIC DEBILITY April 20, 2025 2:49pm GENERALIZED WEAKNESS April 20, 2025 4:10 pm Pacer Check Remote May 03, 2025 10:5 4am abd pain May 22, 2025 2:38p m 6 M FU May 29, 2025 3:08p m Abdominal pain May 30, 2025 1:59p m Reason for Visit Admit Date Abdominal pain February 13, 2025 9:0 3am Pelvic pain February 13, 2025 9:0 3am Chronic constipation February 13, 2025 9: 03am Abdominal pain February 14, 2025 8:2 6am Blood in stool February 14, 2025 8:2 6am Anemia February 14, 2025 8:2 6am Chronic constipation February 14, 2025 8: 26am Generalized weakness April 19, 2025 11:2 6am Calcium deficiency April 20, 2025 4:10p m CVA (cerebral vascular accident) March 4:10pm Debility April 20, 2025 4:10p m Depression April 20, 2025 4:10p m Diabetes mellitus April 20, 2025 4:10p m GERD (gastroesophageal reflux disease) M ay 2024 4:10pm Insomnia April 20, 2025 4:10p m Irritable bowel syndrome April 20, 2025 4:10pm Ischemic colitis April 20, 2025 4:10p m Muscle spasm April 20, 2025 4:10p m Overactive bladder April 20, 2025 4:10p m Vitamin D deficiency April 20, 2025 4:10 pm Chronic systolic heart failure April 20, 2025 4:10pm HLD (hyperlipidemia) April 20, 2025 4:10 pm Blood in stool April 25, 2025 6:41a m Irritable bowel syndrome April 25, 2025 6:41am Ischemic colitis April 25, 2025 6:41a m Chronic anemia April 25, 2025 6:41a m Ischemic cardiomyopathy May 29, 2025 3 :08pm Presence of biventricular im plantable cardioverter-defibrillator May 29, 2025 3:08pm Presence of stent in coronary artery Sung 2024 3:08pm Abdominal pain May 30, 2025 1:59p m Additional Source Comments INFORMATION SOURCE (unrecogn ized section and content) DATE CREATED AUTHOR 01/17/2020 [facility] DATE CREATED AUTHOR AUTHOR'S ORGANIZ ATION 04/10/2020 [facility] DATE CREATED AUTHOR AUTHOR'S ORGANIZ ATION 05/21/2024 [facility] ([place]) DATE CREATED AUTHOR AUTHOR'S ORGANIZ ATION 01/25/[address] [facility] DATE CREATED AUTHOR AUTHOR'S ORGANIZ ATION 03/03/2025 [facility] DATE CREATED AUTHOR AUTHOR'S ORGANIZ ATION 03/12/2025 [facility] DATE CREATED AUTHOR AUTHOR'S ORGANIZ ATION 04/04/2025 [facility] DATE CREATED AUTHOR AUTHOR'S ORGANIZ ATION 05/24/2025 [facility] DATE CREATED AUTHOR AUTHOR'S ORGANIZ ATION 06/01/2025 [facility] Care Team (unrecognized sect ion and content) Team Status: Active Member Role Status Dates Dr. Marci Nuñez DO Primary Care Provider Ac tive Team Status: Inactive Member Role Status Dates Dr. Marci Nuñez DO Primary Care Provider Ac tive Start: November 28, 2024 End: November 28, 2024 Dr. Marci Nuñez DO Referring Provider Activ e Start: November 28, 2024 End: November 28, 2024 Dr. Adrienne Christine MD Attending Provider Active Start: November 28, 2024 End: November 28, 2024 Team Status: Inactive Member Role Status Dates Dr. Marci Nuñez DO Primary Care Provider Ac tive Start: December 12, 2024 End: December 12, 2024 Dr. Marci Nuñez , DO Referring Provider Activ e Start: December 12, 2024 End: December 12, 2024 AMRIK Sanford Attending Provider Active Start: December 12, 2024 End: December 12, 2024 Team Status: Inactive Member Role Status Dates Dr. Marci Nuñez , DO Primary Care Provider Ac tive Start: December 15, 2024 End: December 15, 2024 AMRIK Sanford Attending Provider Active Start: December 15, 2024 End: December 15, 2024 AMRIK Sanford Referring Provider Active Start: December 15, 2024 End: December 15, 2024 Team Status: Inactive Member Role Status Dates Dr. Marci Nuñez , Primary Care Provider Ac tive Start: December 19, 2024 End: December 19, 2024 Dr. Marci Nuñez , DO Referring Provider Activ e Start: December 19, 2024 End: December 19, 2024 AMRIK Craig Attending Provider Active Star t: December 19, 2024 End: December 19, 2024 Team Status: Inactive Member Role Status Dates Dr. Marci Nuñez , DO Primary Care Provider Ac tive Start: December 22, 2024 End: December 22, 2024 Dr. Marci Nuñez , DO Attending Provider Activ e Start: December 22, 2024 End: December 22, 2024 Dr. Marci Nuñez , DO Referring Provider Activ e Start: December 22, 2024 End: December 22, 2024 Team Status: Inactive Member Role Status Dates Dr. Marci Nuñez , DO Primary Care Provider Ac tive Start: January 18, 2025 End: January 18, 2025 Dr. Marci Nuñez DO Referring Provider Activ e Start: January 18, 2025 End: January 18, 2025 Kaykay ROWLEY PA Attending Provider Active Start: January 18, 2025 End: January 18, 2025 Team Status: Active Member Role Status Dates Dr. Marci Nuñez DO Primary Care Provider Ac tive Start: January 22, 2025 Dr. Luigi Tinoco MD Attending Provider Active Start: January 22, 2025 Dr. Luigi Tinoco MD Referring Provider Active Start: January 22, 2025 Team Status: Inactive Member Role Status Dates Dr. Marci Nuñez DO Primary Care Provider Ac tive Start: January 23, 2025 End: January 23, 2025 Dr. Marci Nuñez DO Referring Provider Activ e Start: January 23, 2025 End: January 23, 2025 Dr. Luigi Tinoco MD Attending Provider Active Start: January 23, 2025 End: January 23, 2025 Team Status: Inactive Member Role Status Dates Dr. Marci Nuñez DO Primary Care Provider Ac tive Start: January 29, 2025 End: January 29, 2025 Dr. Danish Tavarez MD Attending Provider Active S tart: January 29, 2025 End: January 29, 2025 Dr. Danish Tavarez MD Referring Provider Active S tart: January 29, 2025 End: January 29, 2025 Team Status: Inactive Member Role Status Dates Dr. Marci Nuñez DO Primary Care Provider Ac tive Start: February 13, 2025 End: February 13, 2025 Dr. Marci Nuñez DO Referring Provider Activ e Start: February 13, 2025 End: February 13, 2025 Mayte Burch NP, [employer]NETWORK EXPERT-C Attending Provider Active Start: February 13, 2025 End: February 13, 2025 Team Status: Inactive Member Role Status Dates Dr. Marci Nuñez DO Primary Care Provider Ac tive Start: February 14, 2025 End: February 14, 2025 Dr. Marci Nuñez DO Referring Provider Activ e Start: February 14, 2025 End: February 14, 2025 AMRIK Sanford Attending Provider Active Start: February 14, 2025 End: February 14, 2025 Team Status: Inactive Member Role Status Dates Dr. Marci Nuñez DO Primary Care Provider Ac tive Start: March 10, 2025 End: March 10, 2025 DrZeke Jaime DO Attending Provider Active Start: March 10, 2025 End: March 10, 2025 Dr. Jose Jaime DO Emergency Provider Active Start: March 10, 2025 End: March 10, 2025 Retail Office Manager Relationship Specialty Start Date End Date Jesus Manuel Freitas, DO [address] [place] [address] PCP - General 02/21/15 Retail Office Manager Relationship Specialty Start Date End Date Jesus Manuel Freitas, DO [address] [place] [address] PCP - General 02/21/15 Retail Office Manager Relationship Specialty Start Date End Date Jesus Manuel Freitas, DO [address] [place] [address] PCP - General 02/21/15 Retail Office Manager Relationship Specialty Start Date End Date Jesus Manuel Freitas, DO [address] [place] [address] PCP - General 02/21/15 Retail Office Manager Relationship Specialty Start Date End Date Jesus Manuel Freitas, DO [address] [place] [address] PCP - General 02/21/15 Retail Office Manager Relationship Specialty Start Date End Date Jesus Manuel Freitas, DO [address] [place] [address] PCP - General 02/21/15 Kailyn Donald, IMPROVEMENT NURSE.CURRICULUM DIRECTOR [address] [place] [address] Specialty Interactive Video Technician Neurology 09/09/22 Retail Office Manager Relationship Specialty Start Date End Date Jesus Manuel Freitas, DO [address] [place] [address] PCP - General 02/21/15 Kailyn Donald, IMPROVEMENT NURSE.CURRICULUM DIRECTOR [address] [place] [address] Specialty Interactive Video Technician Neurology 09/09/22 Retail Office Manager Relationship Specialty Start Date End Date Jesus Manuel Freitas, DO [address] [place] [address] PCP - General 02/21/15 Kailyn Donald, IMPROVEMENT NURSE.CURRICULUM DIRECTOR [address] [place] [address] Specialty Interactive Video Technician Neurology 09/09/22 Gissell Hunt, IMPROVEMENT NURSE.CURRICULUM DIRECTOR [address] [place] [address] Specialty Interactive Video Technician Neurology 12/07/22 Retail Office Manager Relationship Specialty Start Date End Date Jesus Manuel Freitas DO [address] [place] [address] PCP - General 02/21/15 Kailyn Donald, IMPROVEMENT NURSE.CURRICULUM DIRECTOR [address] [place] [address] Specialty Interactive Video Technician Neurology 09/09/22 Gissell Hunt, IMPROVEMENT NURSE.CURRICULUM DIRECTOR [address] [place] [address] Specialty Interactive Video Technician Neurology 12/07/22 Retail Office Manager Relationship Specialty Start Date End Date Jesus Manuel Freitas DO [address] [place] [address] PCP - General 02/21/15 Kailyn Donald, IMPROVEMENT NURSE.CURRICULUM DIRECTOR [address] [place] [address] Specialty Interactive Video Technician Neurology 09/09/22 Gissell Hunt, IMPROVEMENT NURSE.CURRICULUM DIRECTOR [address] [place] [address] Specialty Interactive Video Technician Neurology 12/07/22 Retail Office Manager Relationship Specialty Start Date End Date Jesus Manuel Freitas DO [address] [place] [address] PCP - General 02/21/15 Kailyn Donald, IMPROVEMENT NURSE.CURRICULUM DIRECTOR [address] [place] [address] Specialty Interactive Video Technician Neurology 09/09/22 Gissell Hunt, IMPROVEMENT NURSE.CURRICULUM DIRECTOR [address] [place] [address] Specialty Interactive Video Technician Neurology 12/07/22 Retail Office Manager Relationship Specialty Start Date End Date Jesus Manuel Freitas DO [address] [place] [address] PCP - General 02/21/15 Kailyn Donald, IMPROVEMENT NURSE.CURRICULUM DIRECTOR [address] [place] [address] Specialty Interactive Video Technician Neurology 09/09/22 Gissell Hunt, IMPROVEMENT NURSE.CURRICULUM DIRECTOR [address] [place] [address] Specialty Interactive Video Technician Neurology 12/07/22 Retail Office Manager Relationship Specialty Start Date End Date Jesus Manuel Freitas DO [address] [place] [address] PCP - General 02/21/15 Kailyn Donald, IMPROVEMENT NURSE.CURRICULUM DIRECTOR [address] [place] [address] Specialty Interactive Video Technician Neurology 09/09/22 Gissell Hunt, IMPROVEMENT NURSE.CURRICULUM DIRECTOR [address] [place] [address] Specialty Interactive Video Technician Neurology 12/07/22 Retail Office Manager Relationship Specialty Start Date End Date Jesus Manuel Freitas, DO [address] [place] [address] PCP - General 02/21/15 Kailyn Donald, IMPROVEMENT NURSE.CURRICULUM DIRECTOR [address] [place] [address] Specialty Interactive Video Technician Neurology 09/09/22 Gissell Hunt, IMPROVEMENT NURSE.CURRICULUM DIRECTOR [address] [place] [address] Specialty Interactive Video Technician Neurology 12/07/22 Team Status: Active Member Role Status Dates Dr. Jimmy Cherry , DO Family Provider Active Dr. [...] Dr. Tony Mayer MD Other Provider Active Retail Office Manager Relationship Specialty Start Date End Date Jesus Manuel Freitas, [facility] [place] [address] PCP - General 02/21/15 Kailyn Donald, IMPROVEMENT NURSE.CURRICULUM DIRECTOR [address] [place] [address] Specialty Interactive Video Technician Neurology 09/09/22 Gissell Hunt, IMPROVEMENT NURSE.CURRICULUM DIRECTOR [address] [place] [address] Specialty Interactive Video Technician Neurology 12/07/22 Retail Office Manager Relationship Specialty Start Date End Date Jesus Manuel Freitas, DO [address] [place] [address] PCP - General 02/21/15 Kailyn Donald, IMPROVEMENT NURSE.CURRICULUM DIRECTOR [address] [place] [address] Specialty Interactive Video Technician Neurology 09/09/22 Gissell Hunt, IMPROVEMENT NURSE.CURRICULUM DIRECTOR [address] [place] [address] Specialty Interactive Video Technician Neurology 12/07/22 Team Status: Active Member Role [...] Other Provider Active Dr. Shan Lockett , Attending Provider Active Team Status: Inactive Member [...] Care Provider Active Dr. Jose Jaime , Emergency Provider Active Dr. Ben Johnson , [...] Provider, At tending Provider, Referring Provider Active Retail Office Manager Relationship Specialty Start Date End Date Jesus Manuel Freitas DO [address] [place] [address] PCP - General 02/21/15 Kailyn Donald, IMPROVEMENT NURSE.CURRICULUM DIRECTOR [facility] [place] [address] Specialty Interactive Video Technician Neurology 09/09/22 Gissell Hunt, IMPROVEMENT NURSE.CURRICULUM DIRECTOR [facility] [place] [address] Specialty Interactive Video Technician Neurology 12/07/22 Syd Ramirez MD [address] [place] [address] Specialty Interactive Video Technician Neurology 11/10/23 Retail Office Manager Relationship Specialty Start Date End Date Mily Rodas, IMPROVEMENT NURSE - CURRICULUM DIRECTOR [facility] [place] [address] [address] PCP - General Nurse Practitioner 06/16/24 Retail Office Manager Relationship Specialty Start Date End Date Mily Rodas IMPROVEMENT NURSE - [facility] [address] [place] [phone] PCP - General Nurse Practitioner 06/16/24 Retail Office Manager Relationship Specialty Start Date End Date Mily Rodas IMPROVEMENT NURSE - [facility] [place] [address] PCP - General Nurse Practitioner 06/16/24 Retail Office Manager Relationship Specialty Start Date End Date Jesus Manuel Freitas DO [address] [place], [place] [address] PCP - General 02/21/15 Kailyn Donald, IMPROVEMENT NURSE.CURRICULUM DIRECTOR [address] [place] [address] Specialty Interactive Video Technician Neurology 09/09/22 Gissell Hunt, IMPROVEMENT NURSE.CURRICULUM DIRECTOR [address] [place] [address] Specialty Interactive Video Technician Neurology 12/07/22 Syd Ramirez MD [address] [place], [place] [id number] Specialty Interactive Video Technician Neurology 11/10/23 Retail Office Manager Relationship Specialty Start Date End Date Marci Nuñez [address] [place] [phone] PCP - General Family Medicine 07/20/24 Retail Office Manager Relationship Specialty Start Date End Date Jesus Manuel Freitas DO [address] [place] [address] PCP - General 02/21/15 Kailyn Donald, IMPROVEMENT NURSE.CURRICULUM DIRECTOR [address] [place] [address] Specialty Interactive Video Technician Neurology 09/09/22 Gissell Hunt IMPROVEMENT NURSE.CURRICULUM DIRECTOR [address] [place] [address] Specialty Interactive Video Technician Neurology 12/07/22 Syd Ramirez MD [address] [place] [address] Specialty Interactive Video Technician Neurology 11/10/23 Retail Office Manager Relationship Specialty Start Date End Date Mily Rodas APRN - CURRICULUM DIRECTOR [address] [place] [phone] PCP - General Nurse Practitioner 06/16/24 07/19/24 Marci Nuñez [address] [place] [phone] PCP - General Family Medicine 07/20/24 Retail Office Manager Relationship Specialty Start Date End Date Marci Nuñez [address] [place] [phone] PCP - General Family Medicine 07/20/24 Retail Office Manager Relationship Specialty Start Date End Date Marci Nuñez [address] [place] [phone] PCP - General Family Medicine 07/20/24 Retail Office Manager Relationship Specialty Start Date End Date Jesus Manuel Freitas DO [address] [place] [address] PCP - General 02/21/15 Kailyn Donald, IMPROVEMENT NURSE.CURRICULUM DIRECTOR [address] [place], [place] [address] Specialty Interactive Video Technician Neurology 09/09/22 Gissell Hunt APRN.CURRICULUM DIRECTOR [address] [place], [place] [id number] Specialty Interactive Video Technician Neurology 12/07/22 Syd Ramirez MD [address] [place], [place] [id number] Specialty Interactive Video Technician Neurology 11/10/23 Retail Office Manager Relationship Specialty Start Date End Date JoaquinSaranya osorioh [address] [place] [address] PCP - General Family Medicine 07/20/24 Retail Office Manager Relationship Specialty Start Date End Date Marci Nuñez [address] [place] [address] PCP - General Family Medicine 07/20/24 Retail Office Manager Relationship Specialty Start Date End Date Jesus Manuel Freitas DO [address] [place] [address] PCP - General 02/21/15 Kailyn Donald, IMPROVEMENT NURSE.CURRICULUM DIRECTOR [address] [place], [place] [id number] Specialty Interactive Video Technician Neurology 09/09/22 Gissell Hunt APRN.CURRICULUM DIRECTOR [address] [place] [address] Specialty Interactive Video Technician Neurology 12/07/22 Syd Ramirez MD [address] [place] [address] Specialty Interactive Video Technician Neurology 11/10/23 Retail Office Manager Relationship Specialty Start Date End Date Jesus Manuel Freitas DO [address] [place], [place] [id number] PCP - General 02/21/15 Kailyn Donald, IMPROVEMENT NURSE.CURRICULUM DIRECTOR [address] [place] [address] Specialty Interactive Video Technician Neurology 09/09/22 Gissell Hunt, DAYNE.CURRICULUM DIRECTOR [address] [place] [address] Specialty Interactive Video Technician Neurology 12/07/22 Syd Ramirez MD [address] [place] [address] Specialty Interactive Video Technician Neurology 11/10/23 Retail Office Manager Relationship Specialty Start Date End Date Marci Nuñez [facility] [place] [id number] PCP - General Family Medicine 07/20/24 Retail Office Manager Relationship Specialty Start Date End Date Jesus Manuel Freitas DO [address] [place], [place] [id number] PCP - General 02/21/15 Kailyn Donald, IMPROVEMENT NURSE.CURRICULUM DIRECTOR [address] [place], [place] [id number] Specialty Interactive Video Technician Neurology 09/09/22 Gissell Hunt, IMPROVEMENT NURSE.CURRICULUM DIRECTOR [address] [place] [address] Specialty Interactive Video Technician Neurology 12/07/22 Syd Ramirez MD [address] [place] [address] Specialty Interactive Video Technician Neurology 11/10/23 Retail Office Manager Relationship Specialty Start Date End Date Jesus Manuel Freitas DO [address] [place] [address] PCP - General 02/21/15 Kailyn Donald, IMPROVEMENT NURSE.CURRICULUM DIRECTOR [address] [place] [address] Specialty Interactive Video Technician Neurology 09/09/22 Gissell Hunt, IMPROVEMENT NURSE.CURRICULUM DIRECTOR [address] [place] [address] Specialty Interactive Video Technician Neurology 12/07/22 Syd Ramirez MD [address] [place] [address] Specialty Interactive Video Technician Neurology 11/10/23 Retail Office Manager Relationship Specialty Start Date End Date Jesus Manuel Freitas DO [address] [place] [address] PCP - General 02/21/15 Kailyn Donald, IMPROVEMENT NURSE.CURRICULUM DIRECTOR [address] [place] [address] Specialty Interactive Video Technician Neurology 09/09/22 Gissell Hunt IMPROVEMENT NURSE.CURRICULUM DIRECTOR [address] [place] [address] Specialty Interactive Video Technician Neurology 12/07/22 Syd Ramirez MD [address] [place] [address] Specialty Interactive Video Technician Neurology 11/10/23 Retail Office Manager Relationship Specialty Start Date End Date Jesus Manuel Freitas DO [address] [place] [address] PCP - General 02/21/15 Kailyn Donald, IMPROVEMENT NURSE.CURRICULUM DIRECTOR [address] [place] [address] Specialty Interactive Video Technician Neurology 09/09/22 Gissell Hunt, IMPROVEMENT NURSE.CURRICULUM DIRECTOR [address] [place] [address] Specialty Interactive Video Technician Neurology 12/07/22 Syd Ramirez MD [address] [place] [address] Specialty Interactive Video Technician Neurology 11/10/23 Retail Office Manager Relationship Specialty Start Date End Date Jesus Manuel Freitas DO [address] [place] [address] PCP - General 02/21/15 Kailyn Donald, IMPROVEMENT NURSE.CURRICULUM DIRECTOR [address] [place] [address] Specialty Interactive Video Technician Neurology 09/09/22 Gissell Hunt, IMPROVEMENT NURSE.CURRICULUM DIRECTOR [address] [place] [address] Specialty Interactive Video Technician Neurology 12/07/22 Syd Ramirez MD [address] [place] [address] Specialty Interactive Video Technician Neurology 11/10/23 Team Status: Active Member Role Status Dates Dr. Marci Nuñez DO Primary Care Provider Ac tive Start: November 14, 2024 Dr. Marci Nuñez DO Attending Provider Activ e Start: November 14, 2024 Dr. Marci Nuñez DO Referring Provider Activ e Start: November 14, 2024 Team Status: Inactive Member Role Status Dates Dr. Marci Nuñez DO Primary Care Provider Ac tive Start: November 18, 2024 End: November 18, 2024 Dr. Jose Jaime DO Attending Provider Active Start: November 18, 2024 End: November 18, 2024 Dr. Jose Jaime DO Emergency Provider Active Start: November 18, 2024 End: November 18, 2024 Team Status: Inactive Member Role Status Dates Dr. Marci Nuñez DO Primary Care Provider Ac tive Start: November 23, 2024 End: November 23, 2024 Dr. Marci Nuñez DO Referring Provider Activ e Start: November 23, 2024 End: November 23, 2024 AMRIK Sanford Attending Provider Active Start: November 23, 2024 End: November 23, 2024 Team Status: Inactive Member Role Status Dates Dr. Marci Nuñez DO Primary Care Provider Ac tive Start: March 10, 2025 End: March 10, 2025 Dr. Jose Jaime DO Emergency Provider Active Start: March 10, 2025 End: March 10, 2025 Retail Office Manager Relationship Specialty Start Date End Date Jesus Manuel Freitas DO [address] [place] [address] PCP - General 02/21/15 Kailyn Donald, DAYNE.CURRICULUM DIRECTOR [address] [place] [address] Specialty Interactive Video Technician Neurology 09/09/22 Gissell Hunt APRN.CNP [address] [place] [address] Specialty Interactive Video Technician Neurology 12/07/22 Syd Ramirez MD [address] [place] [address] Specialty Interactive Video Technician Neurology 11/10/23 Team Status: Inactive Member Role Status Dates Dr. Marci Nuñez , DO Primary Care Provider Ac tive Start: April 19, 2025 End: April 19, 2025 Dr. Roemo Padron , DO Emergency Provider Active Start: April 19, 2025 End: April 19, 2025 Team Status: Inactive Member Role Status Dates Dr. Marci Nuñez , DO Primary Care Provider Ac tive Start: April 19, 2025 End: April 20, 2025 Dr. Romeo Padron , DO Emergency Provider Active Start: April 19, 2025 End: April 20, 2025 Dr. Maximo Orosco , DO Admit Provider Active Start: April 19, 2025 End: April 20, 2025 Dr. Maximo Orosoc , DO Attending Provider Active Start: April 19, 2025 End: April 20, 2025 Dr. Maximo Orosco , DO Other Provider Active Start: April 19, 2025 Team Status: Active Member Role Status Dates Dr. Marci Nuñez , DO Primary Care Provider Ac tive Start: April 20, 2025 Dr. Romeo Padron , DO Emergency Provider Active Start: April 20, 2025 Dr. Maximo Orosco , DO Admit Provider Active Start: April 20, 2025 Dr. Maximo Orosco , DO Attending Provider Active Start: April 20, 2025 Dr. Maximo Orosco , DO Other Provider Active Start: April 20, 2025 Team Status: Active Member Role Status Dates Dr. Marci Nuñez , DO Primary Care Provider Ac tive Start: April 20, 2025 Dr. Alonso Marte MD Admit Provider Active Star t: April 20, 2025 Dr. Alonso Marte MD Attending Provider Active Start: April 20, 2025 Dr. Alonso Marte MD Referring Provider Active Start: April 20, 2025 Team Status: Inactive Member Role Status Dates Dr. Marci Nuñez DO Primary Care Provider Ac tive Start: April 25, 2025 End: April 25, 2025 Dr. Marci Nuñez DO Referring Provider Activ e Start: April 25, 2025 End: April 25, 2025 Dr. Shan Lockett DO Attending Provider Active Start: April 25, 2025 End: April 25, 2025 Team Status: Active Member Role Status Dates Dr. Marci Nuñez DO Primary Care Provider Ac tive Start: April 25, 2025 Dr. Marci Nuñez DO Referring Provider Activ e Start: April 25, 2025 Dr. Shan Lockett DO Attending Provider Active Start: April 25, 2025 Dr. Shan Lockett DO Other Provider Active St art: April 25, 2025 Team Status: Inactive Member Role Status Dates Dr. Marci Nuñez DO Primary Care Provider Ac tive Start: April 20, 2025 End: May 03, 2025 Dr. Alonso Marte MD Admit Provider Active Star t: April 20, 2025 End: May 03, 2025 Dr. Alonso Marte MD Attending Provider Active Start: April 20, 2025 End: May 03, 2025 Dr. Alonso Marte MD Referring Provider Active Start: April 20, 2025 End: May 03, 2025 Team Status: Inactive Member Role Status Dates Dr. Marci Nuñez DO Primary Care Provider Ac tive Start: April 19, 2025 End: April 19, 2025 Dr. Danish Tavarez MD Attending Provider Active S tart: April 19, 2025 End: April 19, 2025 Team Status: Inactive Member Role Status Dates Dr. Marci Nuñez DO Primary Care Provider Ac tive Start: May 03, 2025 End: May 03, 2025 Dr. Danish Tavarez MD Attending Provider Active S tart: May 03, 2025 End: May 03, 2025 Team Status: Active Member Role/Relationship Status Dates Dr. Marci Nuñez DO Primary Care Provider Ac tive Team Status: Active Member Role/Relationship Status Dates Dr. Marci Nuñez DO Primary Care Provider Ac tive Start: January 22, 2025 Dr. Luigi Tinoco MD Attending Provider Active Start: January 22, 2025 Dr. Luigi Tinoco MD Referring Provider Active Start: January 22, 2025 Team Status: Inactive Member Role/Relationship Status Dates Dr. Marci Nuñez DO Primary Care Provider Ac tive Start: January 23, 2025 End: January 23, 2025 Dr. Marci Nuñez DO Referring Provider Activ e Start: January 23, 2025 End: January 23, 2025 Dr. Luigi Tinoco MD Attending Provider Active Start: January 23, 2025 End: January 23, 2025 Team Status: Inactive Member Role/Relationship Status Dates Dr. Marci Nuñez DO Primary Care Provider Ac tive Start: January 29, 2025 End: January 29, 2025 Dr. Danish Tavarez MD Attending Provider Active S tart: January 29, 2025 End: January 29, 2025 Dr. Danish Tavarez MD Referring Provider Active S tart: January 29, 2025 End: January 29, 2025 Team Status: Inactive Member Role/Relationship Status Dates Dr. Marci Nuñez DO Primary Care Provider Ac tive Start: February 13, 2025 End: February 13, 2025 Dr. Marci Nuñez DO Referring Provider Activ e Start: February 13, 2025 End: February 13, 2025 Mayte Burch NP, [employer] C[employer]IED INTERNETWORK EXPERT-C Attending Provider Active Start: February 13, 2025 End: February 13, 2025 Team Status: Inactive Member Role/Relationship Status Dates Dr. Marci Nuñez DO Primary Care Provider Ac tive Start: February 14, 2025 End: February 14, 2025 Dr. Marci Nuñez DO Referring Provider Activ e Start: February 14, 2025 End: February 14, 2025 AMRIK Sanford Attending Provider Active Start: February 14, 2025 End: February 14, 2025 Team Status: Inactive Member Role/Relationship Status Dates Dr. Marci Nuñez , DO Primary Care Provider Ac tive Start: March 10, 2025 End: March 10, 2025 Dr. Jose Jaime , DO Attending Provider Active Start: March 10, 2025 End: March 10, 2025 Dr. Jose Jaime , DO Emergency Provider Active Start: March 10, 2025 End: March 10, 2025 Team Status: Inactive Member Role/Relationship Status Dates Dr. Marci Nuñez , DO Primary Care Provider Ac tive Start: April 19, 2025 End: April 19, 2025 Dr. Danish Tavarez MD Attending Provider Active S tart: April 19, 2025 End: April 19, 2025 Dr. Danish Tavarez MD Referring Provider Active S tart: April 19, 2025 End: April 19, 2025 Team Status: Inactive Member Role/Relationship Status Dates Dr. Marci Nuñez , DO Primary Care Provider Ac tive [...] April 19, 2025 Team Status: Active Member Role/Relationship Status Dates Dr. Marci Nuñez , DO Primary Care Provider Ac tive Start: April 20, 2025 Dr. Romeo Padron , DO Emergency Provider Active Start: April 20, 2025 Dr. Maximo Orosco , DO Admit Provider Active Start: April 20, 2025 Dr. Maximo Orosco , DO Attending Provider Active Start: April 20, 2025 Dr. Maximo Orosco , DO Other Provider Active Start: April 20, 2025 Team Status: Inactive Member Role/Relationship Status Dates Dr. Marci Nuñez DO Primary Care Provider Ac tive Start: April 20, 2025 End: May 03, 2025 Dr. Alonso Marte MD Admit Provider Active Star t: April 20, 2025 End: May 03, 2025 Dr. Alonso Marte MD Attending Provider Active Start: April 20, 2025 End: May 03, 2025 Dr. Alonso Marte MD Referring Provider Active Start: April 20, 2025 End: May 03, 2025 Team Status: Inactive Member Role/Relationship Status Dates Dr. Mraci Nuñez DO Primary Care Provider Ac tive Start: April 25, 2025 End: April 25, 2025 Dr. Marci Nuñez DO Referring Provider Activ e Start: April 25, 2025 End: April 25, 2025 Dr. Shan Lockett DO Attending Provider Active Start: April 25, 2025 End: April 25, 2025 Team Status: Active Member Role/Relationship Status Dates Dr. Marci Nuñez DO Primary Care Provider Ac tive Start: April 25, 2025 Dr. Marci Nuñez DO Referring Provider Activ e Start: April 25, 2025 Dr. Shan Lockett DO Attending Provider Active Start: April 25, 2025 Dr. Shan Lockett DO Other Provider Active St art: April 25, 2025 Team Status: Inactive Member Role/Relationship Status Dates Dr. Marci Nuñez DO Primary Care Provider Ac tive Start: May 03, 2025 End: May 03, 2025 Dr. Danish Tavarez MD Attending Provider Active S tart: May 03, 2025 End: May 03, 2025 Dr. Danish Tavarez MD Referring Provider Active S tart: May 03, 2025 End: May 03, 2025 Team Status: Inactive Member Role/Relationship Status Dates Dr. Marci Nuñez DO Primary Care Provider Ac tive Start: May 22, 2025 End: May 22, 2025 Dr. Fazal Heller DO Emergency Provider Active Start: May 22, 2025 End: May 22, 2025 Team Status: Inactive Member Role/Relationship Status Dates Dr. Marci Nuñez DO Primary Care Provider Ac tive Start: January 29, 2025 End: January 29, 2025 Dr. Danish Tavarez MD Attending Provider Active S tart: January 29, 2025 End: January 29, 2025 Dr. Danish Tavarez MD Referring Provider Active S tart: January 29, 2025 End: January 29, 2025 Team Status: Inactive Member Role/Relationship Status Dates Dr. Marci Nuñez DO Primary Care Provider Ac tive Start: February 13, 2025 End: February 13, 2025 Dr. Marci Nuñez DO Referring Provider Activ e Start: February 13, 2025 End: February 13, 2025 Mayte Burch NP, [employer] CERTIFIED INTERNETWORK EXPERT-C Attending Provider Active Start: February 13, 2025 End: February 13, 2025 Team Status: Inactive Member Role/Relationship Status Dates Dr. Marci Nuñez DO Primary Care Provider Ac tive Start: February 14, 2025 End: February 14, 2025 Dr. Marci Nuñez DO Referring Provider Activ e Start: February 14, 2025 End: February 14, 2025 AMRIK Sanford Attending Provider Active Start: February 14, 2025 End: February 14, 2025 Team Status: Inactive Member Role/Relationship Status Dates Dr. Marci Nuñez DO Primary Care Provider Ac tive Start: March 10, 2025 End: March 10, 2025 Dr. Jose Jaime DO Attending Provider Active Start: March 10, 2025 End: March 10, 2025 Dr. Jose Jaime DO Emergency Provider Active Start: March 10, 2025 End: March 10, 2025 Team Status: Inactive Member Role/Relationship Status Dates Dr. Marci Nuñez DO Primary Care Provider Ac tive Start: April 19, 2025 End: April 19, 2025 Dr. Danish Tavarez MD Attending Provider Active S tart: April 19, 2025 End: April 19, 2025 Dr. Danish Tavarez MD Referring Provider Active S tart: April 19, 2025 End: April 19, 2025 Team Status: Inactive Member Role/Relationship Status Dates Dr. Marci Nuñez DO Primary Care Provider Ac tive Start: [...] April 19, 2025 Team Status: Active Member Role/Relationship Status Dates Dr. Marci Nuñez DO Primary Care Provider Ac tive Start: April 20, 2025 Dr. Romeo Padron , DO Emergency Provider Active Start: April 20, 2025 Dr. Maximo Orosco , DO Admit Provider Active Start: April 20, 2025 Dr. Maximo Orosco , DO Attending Provider Active Start: April 20, 2025 Dr. Maximo Orosco , DO Other Provider Active Start: April 20, 2025 Team Status: Inactive Member Role/Relationship Status Dates Dr. Marci Nuñez DO Primary Care Provider Ac tive Start: April 20, 2025 End: May 03, 2025 Dr. Alonso Marte MD Admit Provider Active Star t: April 20, 2025 End: May 03, 2025 Dr. Alonso aMrte MD Attending Provider Active Start: April 20, 2025 End: May 03, 2025 Dr. Alonso Marte MD Referring Provider Active Start: April 20, 2025 End: May 03, 2025 Team Status: Inactive Member Role/Relationship Status Dates Dr. Marci Nuñez DO Primary Care Provider Ac tive Start: April 25, 2025 End: April 25, 2025 Dr. Marci Nuñez DO Referring Provider Activ e Start: April 25, 2025 End: April 25, 2025 Dr. Shan Lockett , DO Attending Provider Active Start: April 25, 2025 End: April 25, 2025 Team Status: Active Member Role/Relationship Status Dates Dr. Marci Nuñez DO Primary Care Provider Ac tive Start: April 25, 2025 Dr. Marci Nuñez DO Referring Provider Activ e Start: April 25, 2025 Dr. Shan Lockett , Attending Provider Active Start: April 25, 2025 Dr. Shan Lockett , DO Other Provider Active St art: April 25, 2025 Team Status: Inactive Member Role/Relationship Status Dates Dr. Marci Nuñez DO Primary Care Provider Ac tive Start: May 03, 2025 End: May 03, 2025 Dr. Danish Tavarez MD Attending Provider Active S tart: May 03, 2025 End: May 03, 2025 Dr. Danish Tavarez MD Referring Provider Active S tart: May 03, 2025 End: May 03, 2025 Team Status: Inactive Member Role/Relationship Status Dates Dr. Marci Nuñez , DO Primary Care Provider Ac tive Start: May 22, 2025 End: May 22, 2025 Dr. Fazal Heller , Attending Provider Active Start: May 22, 2025 End: May 22, 2025 Dr. Fazal Heller , Emergency Provider Active Start: May 22, 2025 End: May 22, 2025 Team Status: Inactive Member Role/Relationship Status Dates Dr. Marci Nuñez DO Primary Care Provider Ac tive Start: May 29, 2025 End: May 29, 2025 Dr. Marci Nuñez DO Referring Provider Activ e Start: May 29, 2025 End: May 29, 2025 Kaykay ROWLEY, PA Attending Provider Active Start: May 29, 2025 End: May 29, 2025 Team Status: Inactive Member Role/Relationship Status Dates Dr. Marci Nuñez DO Primary Care Provider Ac tive Start: February 13, 2025 End: February 13, 2025 Dr. Marci Nuñez DO Referring Provider Activ e Start: February 13, 2025 End: February 13, 2025 Mayte Burch NP, [employer] C[employer]IED INTERNETWORK EXPERT-C Attending Provider Active Start: February 13, 2025 End: February 13, 2025 Team Status: Inactive Member Role/Relationship Status Dates Dr. Marci Nuñez DO Primary Care Provider Ac tive Start: February 14, 2025 End: February 14, 2025 Dr. Marci Nuñez DO Referring Provider Activ e Start: February 14, 2025 End: February 14, 2025 AMRIK Sanford Attending Provider Active Start: February 14, 2025 End: February 14, 2025 Team Status: Inactive Member Role/Relationship Status Dates Dr. Marci Nuñez , DO Primary Care Provider Ac tive Start: March 10, 2025 End: March 10, 2025 Dr. Jose Jaime , DO Attending Provider Active Start: March 10, 2025 End: March 10, 2025 Dr. Jose Jaime , DO Emergency Provider Active Start: March 10, 2025 End: March 10, 2025 Team Status: Inactive Member Role/Relationship Status Dates Dr. Marci Nuñez , DO Primary Care Provider Ac tive Start: April 19, 2025 End: April 19, 2025 Dr. Danish Tavarez MD Attending Provider Active S tart: April 19, 2025 End: April 19, 2025 Dr. Danish Tavarez MD Referring Provider Active S tart: April 19, 2025 End: April 19, 2025 Team Status: Inactive Member Role/Relationship Status Dates Dr. Marci Nuñez , DO Primary Care Provider Ac tive [...] April 19, 2025 Team Status: Active Member Role/Relationship Status Dates Dr. Marci Nuñez , DO Primary Care Provider Ac tive Start: April 20, 2025 Dr. Romeo Padron , DO Emergency Provider Active Start: April 20, 2025 Dr. Maximo Orosco , DO Admit Provider Active Start: April 20, 2025 Dr. Maximo Orosco , DO Attending Provider Active Start: April 20, 2025 Dr. Maximo Orosco , DO Other Provider Active Start: April 20, 2025 Team Status: Inactive Member Role/Relationship Status Dates Dr. Marci Nuñez DO Primary Care Provider Ac tive Start: April 20, 2025 End: May 03, 2025 Dr. Alonso Marte MD Admit Provider Active Star t: April 20, 2025 End: May 03, 2025 Dr. Alonso Marte MD Attending Provider Active Start: April 20, 2025 End: May 03, 2025 Dr. Alonso Marte MD Referring Provider Active Start: April 20, 2025 End: May 03, 2025 Team Status: Inactive Member Role/Relationship Status Dates Dr. Marci Nuñez DO Primary Care Provider Ac tive Start: April 25, 2025 End: April 25, 2025 Dr. Marci Nuñez DO Referring Provider Activ e Start: April 25, 2025 End: April 25, 2025 Dr. Shan Lockett DO Attending Provider Active Start: April 25, 2025 End: April 25, 2025 Team Status: Active Member Role/Relationship Status Dates Dr. Marci Nuñez DO Primary Care Provider Ac tive Start: April 25, 2025 Dr. Marci Nuñez DO Referring Provider Activ e Start: April 25, 2025 Dr. Shan Lockett DO Attending Provider Active Start: April 25, 2025 Dr. Shan Lockett DO Other Provider Active St art: April 25, 2025 Team Status: Inactive Member Role/Relationship Status Dates Dr. Marci Nuñez DO Primary Care Provider Ac tive Start: May 03, 2025 End: May 03, 2025 Dr. Danish Tavarez MD Attending Provider Active S tart: May 03, 2025 End: May 03, 2025 Dr. Danish Tavarez MD Referring Provider Active S tart: May 03, 2025 End: May 03, 2025 Team Status: Inactive Member Role/Relationship Status Dates Dr. Marci Nuñez DO Primary Care Provider Ac tive Start: May 22, 2025 End: May 22, 2025 Dr. Fazal Heller DO Attending Provider Active Start: May 22, 2025 End: May 22, 2025 Dr. Fazal Heller DO Emergency Provider Active Start: May 22, 2025 End: May 22, 2025 Team Status: Inactive Member Role/Relationship Status Dates Dr. Marci Nuñez DO Primary Care Provider Ac tive Start: May 29, 2025 End: May 29, 2025 Dr. Marci Nuñez DO Referring Provider Activ e Start: May 29, 2025 End: May 29, 2025 aKykay ROWLEY, PA Attending Provider Active Start: May 29, 2025 End: May 29, 2025 Team Status: Inactive Member Role/Relationship Status Dates Dr. Marci Nuñez DO Primary Care Provider Ac tive Start: May 30, 2025 End: May 30, 2025 Dr. 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 Specialty Start Date End Date Marci Nuñez [place] [id number] PCP - General Family Medicine 07/20/24 Source Comments (unrecognize d section and content) In the event this informatio n is protected by the Federal Confidentiality of Alcohol and Drug Abuse Patient Records regulations: The Federal rules restrict any use of the information to criminally investigate or prosecute any alcohol or drug abuse patient.[facility] the event this information is protected by the Federal Confidentiality of Alcohol and Drug Abuse Patient Records regulations: The Federal rules restrict any use of the information to criminally investigate or prosecute any alcohol or drug abuse patient.[facility] the event this information is protected by the Federal Confidentiality of Alcohol and Drug Abuse Patient Records regulations: The Federal rules restrict any use of the information to criminally investigate or prosecute any alcohol or drug abuse patient.[facility] the event this information is protected by the Federal Confidentiality of Alcohol and Drug Abuse Patient Records regulations: The Federal rules restrict any use of the information to criminally investigate or prosecute any alcohol or drug abuse patient.[facility] the event this information is protected by the Federal Confidentiality of Alcohol and Drug Abuse Patient Records regulations: The Federal rules restrict any use of the information to criminally investigate or prosecute any alcohol or drug abuse patient.[facility] the event this information is protected by the Federal Confidentiality of Alcohol and Drug Abuse Patient Records regulations: The Federal rules restrict any use of the information to criminally investigate or prosecute any alcohol or drug abuse patient.[facility] the event this information is protected by the Federal Confidentiality of Alcohol and Drug Abuse Patient Records regulations: The Federal rules restrict any use of the information to criminally investigate or prosecute any alcohol or drug abuse patient.[facility] the event this information is protected by the Federal Confidentiality of Alcohol and Drug Abuse Patient Records regulations: The Federal rules restrict any use of the information to criminally investigate or prosecute any alcohol or drug abuse patient.[facility] HospitalIn the event this information is protected by the Federal Confidentiality of Alcohol and Drug Abuse Patient Records regulations: The Federal rules restrict any use of the information to criminally investigate or prosecute any alcohol or drug abuse patient.[facility] HospitalIn the event this information is protected by the Federal Confidentiality of Alcohol and Drug Abuse Patient Records regulations: The Federal rules restrict any use of the information to criminally investigate or prosecute any alcohol or drug abuse patient.[facility] HospitalIn the event this information is protected by the Federal Confidentiality of Alcohol and Drug Abuse Patient Records regulations: The Federal rules restrict any use of the information to criminally investigate or prosecute any alcohol or drug abuse patient.[facility] HospitalIn the event this information is protected by the Federal Confidentiality of Alcohol and Drug Abuse Patient Records regulations: The Federal rules restrict any use of the information to criminally investigate or prosecute any alcohol or drug abuse patient.[facility] HospitalIn the event this information is protected by the Federal Confidentiality of Alcohol and Drug Abuse Patient Records regulations: The Federal rules restrict any use of the information to criminally investigate or prosecute any alcohol or drug abuse patient.[facility] HospitalIn the event this information is protected by the Federal Confidentiality of Alcohol and Drug Abuse Patient Records regulations: The Federal rules restrict any use of the information to criminally investigate or prosecute any alcohol or drug abuse patient.[facility] HospitalIn the event this information is protected by the Federal Confidentiality of Alcohol and Drug Abuse Patient Records regulations: The Federal rules restrict any use of the information to criminally investigate or prosecute any alcohol or drug abuse patient.[facility] HospitalIn the event this information is protected by the Federal Confidentiality of Alcohol and Drug Abuse Patient Records regulations: The Federal rules restrict any use of the information to criminally investigate or prosecute any alcohol or drug abuse patient.[facility] HospitalIn the event this information is protected by the Federal Confidentiality of Alcohol and Drug Abuse Patient Records regulations: The Federal rules restrict any use of the information to criminally investigate or prosecute any alcohol or drug abuse patient.[facility] HospitalIn the event this information is protected by the Federal Confidentiality of Alcohol and Drug Abuse Patient Records regulations: The Federal rules restrict any use of the information to criminally investigate or prosecute any alcohol or drug abuse patient.[facility] HospitalIn the event this information is protected by the Federal Confidentiality of Alcohol and Drug Abuse Patient Records regulations: The Federal rules restrict any use of the information to criminally investigate or prosecute any alcohol or drug abuse patient.[facility] HospitalIn the event this information is protected by the Federal Confidentiality of Alcohol and Drug Abuse Patient Records regulations: The Federal rules restrict any use of the information to criminally investigate or prosecute any alcohol or drug abuse patient.[facility] HospitalIn the event this information is protected by the Federal Confidentiality of Alcohol and Drug Abuse Patient Records regulations: The Federal rules restrict any use of the information to criminally investigate or prosecute any alcohol or drug abuse patient.[facility] HospitalIn the event this information is protected by the Federal Confidentiality of Alcohol and Drug Abuse Patient Records regulations: The Federal rules restrict any use of the information to criminally investigate or prosecute any alcohol or drug abuse patient.[facility] HospitalIn the event this information is protected by the Federal Confidentiality of Alcohol and Drug Abuse Patient Records regulations: The Federal rules restrict any use of the information to criminally investigate or prosecute any alcohol or drug abuse patient.[facility] HospitalIn the event this information is protected by the Federal Confidentiality of Alcohol and Drug Abuse Patient Records regulations: The Federal rules restrict any use of the information to criminally investigate or prosecute any alcohol or drug abuse patient.[facility] HospitalIn the event this information is protected by the Federal Confidentiality of Alcohol and Drug Abuse Patient Records regulations: The Federal rules restrict any use of the information to criminally investigate or prosecute any alcohol or drug abuse patient.[facility] HospitalIn the event this information is protected by the Federal Confidentiality of Alcohol and Drug Abuse Patient Records regulations: The Federal rules restrict any use of the information to criminally investigate or prosecute any alcohol or drug abuse patient.[facility] HospitalIn the event this information is protected by the Federal Confidentiality of Alcohol and Drug Abuse Patient Records regulations: The Federal rules restrict any use of the information to criminally investigate or prosecute any alcohol or drug abuse patient.[facility] HospitalIn the event this information is protected by the Federal Confidentiality of Alcohol and Drug Abuse Patient Records regulations: The Federal rules restrict any use of the information to criminally investigate or prosecute any alcohol or drug abuse patient.[facility] HospitalIn the event this information is protected by the Federal Confidentiality of Alcohol and Drug Abuse Patient Records regulations: The Federal rules restrict any use of the information to criminally investigate or prosecute any alcohol or drug abuse patient.[facility] HospitalIn the event this information is protected by the Federal Confidentiality of Alcohol and Drug Abuse Patient Records regulations: The Federal rules restrict any use of the information to criminally investigate or prosecute any alcohol or drug abuse patient.[facility] HospitalIn the event this information is protected by the Federal Confidentiality of Alcohol and Drug Abuse Patient Records regulations: The Federal rules restrict any use of the information to criminally investigate or prosecute any alcohol or drug abuse patient.[facility] HospitalIn the event this information is protected by the Federal Confidentiality of Alcohol and Drug Abuse Patient Records regulations: The Federal rules restrict any use of the information to criminally investigate or prosecute any alcohol or drug abuse patient.[facility] HospitalIn the event this information is protected by the Federal Confidentiality of Alcohol and Drug Abuse Patient Records regulations: The Federal rules restrict any use of the information to criminally investigate or prosecute any alcohol or drug abuse patient.[facility] HospitalIn the event this information is protected by the Federal Confidentiality of Alcohol and Drug Abuse Patient Records regulations: The Federal rules restrict any use of the information to criminally investigate or prosecute any alcohol or drug abuse patient.[facility] HospitalIn the event this information is protected by the Federal Confidentiality of Alcohol and Drug Abuse Patient Records regulations: The Federal rules restrict any use of the information to criminally investigate or prosecute any alcohol or drug abuse patient.[facility] HospitalIn the event this information is protected by the Federal Confidentiality of Alcohol and Drug Abuse Patient Records regulations: The Federal rules restrict any use of the information to criminally investigate or prosecute any alcohol or drug abuse patient.[facility] HospitalIn the event this information is protected by the Federal Confidentiality of Alcohol and Drug Abuse Patient Records regulations: The Federal rules restrict any use of the information to criminally investigate or prosecute any alcohol or drug abuse patient.[facility] HospitalIn the event this information is protected by the Federal Confidentiality of Alcohol and Drug Abuse Patient Records regulations: The Federal rules restrict any use of the information to criminally investigate or prosecute any alcohol or drug abuse patient.[facility] HospitalIn the event this information is protected by the Federal Confidentiality of Alcohol and Drug Abuse Patient Records regulations: The Federal rules restrict any use of the information to criminally investigate or prosecute any alcohol or drug abuse patient.[facility] Reason for Visit (unrecogniz ed section and content) Reason Onset Date Comments Question 02/05/2022 medication Reason Onset Date Comments Refill Request 05/01/2022 Reason Comments Follow Up Reason Comments New Patient tremor of left hand Specialty Diagnoses / Procedures Referred By Contac t Referred To Contact Neurology Diagnoses Tremor of left hand Procedures CONSULT TO NEUROLOGY OFFICE/OUTPATIENT NEW HIGH MDM 60-74 MINUTES Ghazala Mccord MD [address] [place] [address] Referral ID Status Reason Start Date Expiration Date V isits Requested Visits Authorized [id number] Closed PCP Requested Referral 06/04/2022 06/04/2023 1 1 Reason Comments Established Patient Specialty Diagnoses / Procedures Referred By Contac t Referred To Contact Diagnoses Tremor of left hand Procedures PROVIDER ORDERED FOLLOW UP OFFICE/OUTPATIENT NEW HIGH MDM 60-74 MINUTES Syd Ramirez MD [address] [place] [address] Referral ID Status Reason Start Date Expiration Date V isits Requested Visits Authorized [id number] Closed PCP Requested Referral 06/23/2022 06/23/2023 1 1 Reason Comments Medication question Reason Comments Prior Authorization needed for medicatio n Reason Comments Insurance Authorization [place] Reason Comments Med Change Request Reason Comments Established Patient Reason Comments Refill Request Reason Comments Radiology NM Specialty Diagnoses / Procedures Referred By Oni t Referred To Contact MOLECULAR & FUNCTIONAL IMAGING 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, unspecified Parkinsonism type Procedures NM BRAIN TREMOR SPECT/CT RP LOCLZJ YASMANI SPECT W/CT 1 AREA 1 DAY IMAGING Syd Ramirez MD [address] [place] [address] Molecular & Functional Imaging [address] [place] [address] Referral ID Status Reason Start Date Expiration Date V isits Requested Visits Authorized [id number] Closed Auto-Generate d Referral 07/01/2023 07/30/2024 1 1 Reason Comments Established Patient Reason Onset Date Comments Other 06/28/2024 [place] Document ation Reason Onset Date Comments Release of Information 07/11/2024 Reason Onset Date Comments Other 07/11/2024 Needs call back from office Reason Onset Date Comments Other 08/04/2024 Reason Onset Date Comments Release of Information 08/05/2024 Specialty Diagnoses / Procedures [facility] / IMAGING Diagnoses Interstitial emphysema PET SCAN/CT INITIAL STAGING SKULL BASE TO MID THIGH J98.2 EMPHYSEMA,INTERSTITIAL ANIRUDH OFFICE SCHEDULED ORDER IN SCANNED DOCS AUTH# [id number] GOOD 08/01/24-09/30/[address] ATTENUATION SKULL BASE MID-THIGH PET CT Kalen Izaguirre MD [address] [facility] [address] [place] [address] Radio [facility] [address] [facility] [address] Referral ID Status Reason Start Date Expiration Date Visits Re quested Visits Authorized [id number] Closed 08/01/2024 09/30/2024 1 1 Reason Onset [...] [facility] Neurology - Medication Refill 04/23/2025 [place] Reason Onset Date Comments SPP Neurology - Medication Refill 05/21/2025 [place] XR Care Team (unrecognized sect ion and content) Care Team Personnel Name: CHELA BHANDARI DO Position: P4 Physician - Primary Care Med Service: Active Provider Member Role: Primary Care Physician Address: Address: [address] [place] [address] Name: JAC CHRISTENSEN MD Position: P4 Physician - Cardiology Med Service: Active Provider Member Role: Photoflash Powder Mixer Address: Address: [address] [place] [address] Care Team Related Persons Name: SONG PENA Address: Home [address] [place], [place] [phone] Care Team Personnel Name: CHELA BHANDARI DO Position: P4 Physician - Primary Care Med Service: Active Provider Member Role: Primary Care Physician Address: Address: [address] [place] [address] Name: JAC CHRISTENSEN MD Position: P4 Physician - Cardiology Med Service: Active Provider Member Role: Photoflash Powder Mixer Address: Address: [address] [place] [address] Care Team Related Persons Name: SONG PENA Address: Home [address], [place] [phone] Care Team Personnel Name: CHELA BHANDARI DO Position: P4 Physician - Primary Care Med Service: Active Provider Member Role: Primary Care Physician Address: Address: [address] [place] [address]- Name: JAC CHRISTENSEN MD Position: P4 Physician - Cardiology Med Service: Active Provider Member Role: Photoflash Powder Mixer Address: Address: [address] [facility] [address] [place] [address]- Care Team Related Persons Name: SONG PENA Address: Home [address], [place] [id number] Care Team Personnel Name: CHELA BHANDARI DO Position: P4 Physician - Primary Care Med Service: Active Provider Member Role: Primary Care Physician Address: Address: [address] [place] [address]- Name: JAC CHRISTENSEN MD Position: P4 Physician - Cardiology Med Service: Active Provider Member Role: Photoflash Powder Mixer Address: Address: [address] [facility] [address] [address]- Care Team Related Persons Name: SONG PENA Address: Home [address], [place] [phone] Care Team Personnel Name: CHELA BHANDARI DO Position: P4 Physician - Primary Care Member Role: Primary Care Physician Address: Address: [address] [place] [address]- Name: JAC CHRISTENSEN MD Position: P4 Physician - Cardiology Address: Address: [address] [facility] [address] [address]- Care Team Related Persons Name: SONG PENA Address: Home [address], [place] [phone] Care Team Personnel Name: CHELA BHANDARI DO Position: P4 Physician - Primary Care Med Service: Active Provider Member Role: Primary Care Physician Address: [facility] [address] [facility] [place] [address]- Name: JAC CHRISTENSEN MD Position: P4 Physician - Cardiology Med Service: Active Provider Member Role: Photoflash Powder Mixer Address: Address: [address] [facility] [address] [place] [address]- Care Team Related Persons Name: SONG PENA Address: Home [address] [phone] Care Team Personnel Name: CHELA BHANDARI DO Position: P4 Physician - Primary Care Med Service: Active Provider Member Role: Primary Care Physician Address: Address: [address] [place] [address]- Name: JAC CHRISTENSEN MD Position: P4 Physician - Cardiology Med Service: Active Provider Member Role: Photoflash Powder Mixer Address: Address: [address] [facility] [place] [id number]- Care Team Related Persons Name: SONG PENA Address: Home [address] [phone] Care Team Personnel Name: CHELA BHANDARI DO Position: P4 Physician - Primary Care Member Role: Primary Care Physician Address: Address: [address] [place] [address]- Name: JAC CHRISTENSEN MD Position: P4 Physician - Cardiology Member Role: Photoflash Powder Mixer Address: Address: [address] [place] [address] [address] [place] [id number]- Care Team Related Persons Name: SONG PENA Address: Home [address], [place] [phone] Care Team Personnel Name: CHELA BHANDARI DO Position: P4 Physician - Primary Care Member Role: Primary Care Physician Address: Address: [address] [place] [address]- Name: JAC CHRISTENSEN MD Position: P4 Physician - Cardiology Member Role: Photoflash Powder Mixer Address: Address: [address] [place] [address] [address] [place] [address]- [place] Care Team Related Persons Name: SONG PENA Address: Home [address], [place] [phone] Care Team Personnel Name: CHELA BHANDARI DO Position: P4 Physician - Primary Care Member Role: Primary Care Physician Address: Address: [address] [place] [address]- Name: JAC CHRISTENSEN MD Position: P4 Physician - Cardiology Member Role: Photoflash Powder Mixer Address: Address: [address] [facility] [address] [place] [address]- [place] Care Team Related Persons Name: JOSESONG Address: Home [address], [place] [phone] Care Team Personnel Name: CHELA BHANDARI DO Position: P4 Physician - Primary Care Member Role: Primary Care Physician Address: Address: [address] [place] [address]- Name: JAC CHRISTENSEN MD Position: P4 Physician - Cardiology Member Role: Photoflash Powder Mixer Address: Address: [address] [facility] [address] [place] [address]- Care Team Related Persons Name: PENASONG MIJARES Address: Home [address], [place] [phone] Care Team Personnel Name: CHELA BHANDARI DO Position: P4 Physician - Primary Care Member Role: Primary Care Physician Address: Address: [address] [place] [address]- Name: JAC CHRISTENSEN MD Position: P4 Physician - Cardiology Member Role: Photoflash Powder Mixer Address: Address: [address] [facility] [address] [address]- Care Team Related Persons Name: SONG PENA Address: Home [address], [place] [phone] Care Team Personnel Name: CHELA BHANDARI DO Position: P4 Physician - Primary Care Member Role: Primary Care Physician Address: Address: [address] [place] [address] Name: JAC CHRISTENSEN MD Position: P4 Physician - Cardiology Member Role: Photoflash Powder Mixer Address: Address: [address] [place] [address] Care Team Related Persons Name: PENASONG MUNOZ Address: Home [address] [place] [phone] Care Team Personnel Name: ADRIENNE BYERS DO Position: P4 Physician - Primary Care Member Role: Primary Care Physician Address: Address: [address] [place] [address]- [place] Name: JAC CHRISTENSEN MD Position: P4 Physician - Cardiology Member Role: Photoflash Powder Mixer Address: Address: [address] [place] [address] Care Team Related Persons Name: SONG PENA Address: Home [address] [place] [phone] Goals (unrecognized section and content) Goals may [...] BE BASED ON THE PRIMARY CLINICAL RECORDS. [facility]. provides no warranty or guarantee of the accuracy or completeness of information in this document.
--- OUTSIDE RECORDS SUMMARY | 2025-06-02 13:58 | XMS RPT_ITS | CCD ---
Author Organization [facility] Care Team Providers Care Inspector Final Assembly Conveyor Line Name Role Phone DR LARY WHEAT DO Primary Care Physician [phone] Jesus Manuel Freitas DO Primary Care Provider Jesus Manuel Freitas DO Primary Care Provider Jesus Manuel Freitas DO Primary Care Provider DR LARY WHEAT DO Primary Care Physician [phone] DR LARY WHEAT DO Primary Care Physician [phone] Jesus Manuel Freitas DO Primary Care Provider Odilon GEOLOGICAL SAMPLE TESTER.NIRMALA, Kailyn K Unavailable ADRIENNE BYERS DO Primary Care Physician Gilbert GEOLOGICAL SAMPLE TESTER.NIRMALA, Gissell Unavailable Jesus Manuel Freitas DO Primary Care Provider Odilon GEOLOGICAL SAMPLE TESTER.SHEET COMBINING OPERATOR, Kailyn K Unavailable Gilbert GEOLOGICAL SAMPLE TESTER.NIRMALA, Gissell Unavailable Dr. Adrienne Byers Primary Care Provider Dr. Alexsandra Vela Attending Provider Dr. Jose Turk Attending Provider Dr. Uday Orosco Emergency Provider [phone] Dr. Tony Corona Admit Provider Unavailabl e Dr. Tony Corona Other Provider Unavailabl e Dr. Ben Johnson Attending Provider Dr. Ben Johnson Other Provider Dr. Adrienne Byers Referring Provider Brisa Jennings Attending Provider Unavailable Dr. David [...] Attending Provider Dr. Yoandy Thakkar Other Provider [phone] Dr. Ganesh Kiran Attending Provider Dr. Ganesh Kiran Other Provider Dr. Adrienne Christine Attending Provider [phone] Ben Johnson Referring Provider Dr. Heike Horta Referring Provider Jesus Manuel Freitas DO Primary Care Provider James MOERNO, Sanaar A Unavailable ADRIENNE BYERS DO Primary Care Unavailable ADRIENNE BYERS DO Attending Unavailable HALKO DO, ADRIENNE Primary Care Unavailable NANDINI GORMAN, ANIRUDH Edilia Attending Unavai lable HALKO DO, ADRIENNE Primary Care Unavailable HATTIE MORENO, JAXON Henderson Attending Unavail able HALKO DO, ADRIENNE Attending Unavailable HALKO DO, ADRIENNE Primary Care Unavailable HALKO DO, ADRIENNE Primary Care Unavailable HATTIE MORENO, JAXON Henderson Attending Unavail able SOEHNLEN, ADRIENNE Attending Unavailable HALKO DO, ADRIENNE Primary Care Unavailable HALKO DO, ADRIENNE Primary Care Unavailable FERMIN MORENO, DR NATHAN Attending Unavailab le HALKO DO, ADRIENNE Primary Care Unavailable HATTIE MORENO, JAXON Henderson Attending Unavail able HALKO DO, ADRIENNE Primary Care Unavailable HALKO DO, ADRIENNE Attending Unavailable HALKO DO, ADRIENNE Primary Care Unavailable FERMIN MORENO, DR NATHNA Attending Unavailab le HALKO DO, ADRIENNE Attending Unavailable HALKO DO, ADRIENNE Primary Care Unavailable HALKO DO, ADRIENNE Attending Unavailable HALKO DO, ADRIENNE Primary Care Unavailable HALKO DO, ADRIENNE Primary Care Unavailable HALKO DO, ADRIENNE Attending Unavailable HALKO DO, ADRIENNE Primary Care Unavailable HALKO DO, ADRIENNE Attending Unavailable MARY ALICE , DR YORK Referring Unavailable JAMES MORENO, SHERIF HANSON Attending Unavailab le HALKO DO, ADRIENNE [...] Pr ovider Marci Lopez Primary Care Provider [phone] Toni OSCAR - Rick SILVESTRE Primary Care Pr ovider MARTHA PILLAI Referring [...] Provider Addison FOWLER, Dr. Garcia Attending Provider [phone] Addison FOWLER, Dr. Garcia Emergency Provider Rosa Pabon Attending Provider Dr. Adrienne Christine MD Attending Provider Rosa Pabon Referring Provider Dipti Matt Attending Provider Kaykay Siegel Attending Provider Earnest MORENO, Dr. Meyers Attending Provider Dr. Luigi Tinoco MD Referring Provider Daysi MORENO, Dr. Peng Attending Provider Daysi MORENO, Dr. Peng Referring Provider Marcin DANIELSCMayte Attending Provider PINA ISIDRO Referring Unavailable PINA ISIDRO Attending Unavailable JOHN, MARCI Primary Care Unavailable JOHN, MARCI Referring Unavailable JOHN, MARCI Attending Unavailable TONI, RICK Primary Care Unavailable JOHN, MARCI Referring Unavailable JOHN, MARCI Attending Unavailable JOHN, MARCI Primary Care Unavailable JOHN, MARCI Referring Unavailable JOHN, MARCI Attending Unavailable JOHN, MARCI Primary Care Unavailable John DO, Dr. Marci Baird Primary Care [facility] er John FOWLER, Dr. Marci Baird Referring Provider Rosa Pabon Attending Provider John FOWLER, Dr. Marci Baird Attending Provider Dr. Jose Jaime DO Attending Provider Addison FOWLER, Dr. Garcia Emergency Provider LEYLA MURPHY Referring Unavailable BROWN, JESUS MANUEL R Primary Care Unavailable LEYLA MURPHY Referring Unavailable BROWN, JESUS MANUEL R Primary Care Unavailable John FOWLER, Dr. Marci Baird Primary Care [facility] er John FOWLER, Dr. Marci Baird Referring Provider Rosa Pabon Attending Provider Vito FOWLER, Dr. Walters Emergency Provider Andmain DO, Dr. Walters Emergency Provider Kwesi FOWLER, Dr. Marsh Admit Provider Kwesi FOWLER, Dr. Marsh Attending Provider Kwesi FOWLER, Dr. Marsh Other Provider John FOWLER, Dr. Marci Baird Primary [facility] er John FOWLER, Dr. Marci Baird Referring Provider Kaykay Siegel Attending Provider Dr. Luigi Tinoco MD Attending Provider Dr. Luigi Tinoco MD Referring Provider Dr. Danish Tavarez MD Attending Provider Dr. Danish Tavarez MD Referring Provider Mayte De La O Attending Provider Rosa Pabon Attending Provider Dr. Jose Jaime DO Attending Provider Dr. Jose Jaime DO Emergency Provider Vito FOWLER, Dr. Walters Emergency Provider Kwesi FOWLER, Dr. Marsh Admit Provider [phone] Kwesi FOWLER, Dr. Marsh Attending Provider Kwesi FOWLER, Dr. Marsh Other Provider [phone] Estuardo MORENO, Dr. Alonso Carter Admit Provider Estuardo MORENO, Dr. Alonso Carter Attending Provider Estuardo MORENO, Dr. Alonso Carter Referring Provider Levy FOWLER, Dr. Torrez Attending Provider Friend , Dr. Torrez Other Provider John FOWLER, Dr. Marci Baird Primary Care [facility] er John FOWLER, Dr. Marci Baird Referring Provider Estuardo MORENO, Dr. Alonso Carter Admit Provider Estuardo MORENO, Dr. Alonso Carter Attending Provider Estuardo MORENO, Dr. Alonso Carter Referring Provider Levy FOWLER, Dr. Torrez Attending Provider Friend DO, Dr. Torrez Other Provider [phone] John FOWLER, Dr. Marci Baird Primary [facility] er John FOWLER, Dr. Marci Baird Referring Provider Daysi MORENO, Dr. Peng Referring Provider [phone] Fazal Heller DO Emergency Provider JESUS MANUEL FREITAS Primary Care Unavailable LEYLA MURPHY Attending Unavailable JESUS MANUEL FREITAS Primary Care Unavailable John FOWLER, Dr. Marci Baird Primary [facility] er John FOWLER, Dr. Marci Baird Referring Provider Daysi MORENO, Dr. Peng Referring Provider Dr. Fazal Heller DO Attending Provider Dr. Fazal Heller DO Emergency Provider Kaykay Siegel Attending Provider John FOWLER, Dr. Marci Baird Primary Care Provid er Daysi MORENO, Dr. Peng Attending Provider Anabell Simms Attending Unavailable Miya Thomas Consulting Unavailable [facility] Unavailabl e Miya Thomas Admitting Unavailable [facility] Unavailabl e Maximo Orosco Admitting Unavailable Maximo Orosco Attending Unavailable [facility] Unavailabl e Danish Tavarez Attending Unavailable [facility] Unavailabl e Shan Lockett Attending Unavailable [facility] Referring Unavailabl e Luigi Tinoco Attending Unavailable [facility] Unavailabl e [facility] Referring Unavailabl e [facility] Unavailabl e Rosa Rodriguez Attending Unavailable [facility] Referring Unavailabl e [facility] Unavailabl e Rosa Rodriguez Attending Unavailable Rosa Rodriguez Referring Unavailable [facility] Unavailabl e Luigi Tinoco Referring Unavailable Luigi Tinoco Attending Unavailable [facility] Unavailabl e Yuridia Maddox NP Attending Unavailable [facility] Unavailabl e Alexsandra Vela Attending Unavailabl e Shan Lockett Consulting Unavailable Shan Lockett Attending Unavailable [facility] Unavailabl e [facility] Referring Unavailabl e [facility] Unavailabl Jose Clements Attending Unavailable Romeo Padron Attending Unavailable [facility]abl e [facility] Unavail[facility] e Varun Morrell Attending Unavailable [facility] Unavailabl Rosa Bellamy Attending Unavailable Rosa Rodriguez Referring Unavailable [facility] Unavailabl e [facility] Referring Unavailabl e [facility] Attending Unavailabl Adrienne Sarabia Attending Unavailable Adrienne Christine Referring Unavailable [facility] Unavailabl e [facility] Unavailabl e Rosa Rodriguez Attending Unavailable [facility] Referring Unavailabl e [facility] Unavailabl Adrienne Sarabia Attending Unavailable [facility] Referring Unavailabl e [facility] Unavailabl e Rosa Rodriguez Attending Unavailable [facility] Referring Unavailabl e [facility] Unavailabl e Daysi, [place] Attending Unavailable Daysi, [place] Referring Unavailable [facility] Unavailabl e Jeffrey Justice Attending Unavailabl e Jeffrey Justice Referring Unavailabl e [facility] Unavailabl e DaysiLisa washingtonl Attending Unavailable Daysi, Danish Referring Unavailable [facility] Unavailabl e Rosa Rodriguez Attending Unavailable [facility] Referring Unavailabl e [facility] Unavailabl e Jose Turk Attending Unavailable [facility] Referring Unavailabl e Kaykay Siegel Attending Unavail able [facility] Unavailabl e [facility] Referring Unavailabl e Rosa Rodriguez Attending Unavailable [facility] Unavailabl e [facility] Referring Unavailabl e [facility] Unavailabl e Luigi Tinoco Attending Unavailable [facility] Referring Unavailabl e [facility] Unavailabl e Daysi, Danish Referring Unavailable Lisa Tavarezl Attending Unavailable [facility] Unavailabl e Rosa Rodriguez Attending Unavailable [facility] Referring Unavailabl e [facility] UnavailAdrienne Sawant Referring Unavailable Adrienne Christine Attending Unavailable [facility] Unavailabl e Mayte Burch NP Attending Unavailable [facility] Referring Unavailabl e Daysi, Danish Referring Unavailable [facility]erring Unavailabl e Luigi Tinoco Attending Unavailable [facility] Unavailabl e John, [facility] Referring Unavailabl e Kaykay Siegel Attending Unavail able [facility] Unavailabl e John, [facility] Referring Unavailabl e Dipti Keenan Attending Unavailable [facility] Unavailabl e Daysi, [place] Attending Unavailable Daysi, Danish Referring Unavailable [facility] Unavailabl e Daysi, [place] Attending Unavailable Daysi, [place] Referring Unavailable [facility] Unavailabl Adrienne Sarabia Attending Unavailable [facility] Referring Unavailabl e [facility] Unavailabl e Jose Turk Attending Unavailable [facility] Referring Unavailabl e [facility] Unavailabl e Maximo Orosco Admitting Unavailable Maximo Orosco Consulting Unavailable Maximo Orosco Attending Unavailable Anabell Simms Attending Unavailable Miya Thomas Consulting Unavailable Miya Thomas Admitting Unavailable [facility] Unavailabl e Anabell Simms Consulting Unavailable Miya Thomas Attending Unavailable Shan Lockett Attending Unavailable Anabell Simms Referring Unavailable [facility] Unavailabl e Estuardo, Alonso Chi Admitting Unavailable Estuardo Alonso Chi Attending Unavailable Estuardo, Alonso Chi Referring Unavailable Fazal Heller Attending Unavailable [facility] Unavailabl e [facility] Unavailabl Jose Clements Attending Unavailable [facility] Unavailabl e [facility] Attending Unavailabl e JohnOn license of [facility] Referring Unavailabl e Allergies Allergy Classification Reported Allergen(s) Allergy Type Date of Onset Reaction(s) Facility HMG-CoA Reductase Inhibitors (statins) (1 source) atorvastatin Drug Allergy 04-03-2010 [facility] (20 sources) atorvastatin; Translations: [ATORVASTATIN CALCIUM] Drug Allergy 04-03-2010 [facility] Medications Current Medications Medication Drug Class(es) Dates Sig (Normalized) Sig (Original) ARIPiprazole 2 mg oral tablet (20 sources) [...] tab(s), 0 Refill(s), 11/25/21 10:33:00 EST, Pharmacy: [place] [id number] [facility], 172, cm, 11/20/21 10:16:00 EST, Height, 72, kg, 11/20/21 10:16:00 EST, Dosing Weight Start Date: 11/20/21 Stop Date: 11/25/21 Status: Ordered baclofen 5 mg oral tablet (20 sources) gamma-Aminobutyric Acid-ergic Agonist Start: 05-29-2025 take 1 tablet by mouth once daily Baclofen 5 mg tablet Active 5 mg PO DAILY May 29, 2025 12:00am SPASCITY Start: 02-21-2024 End: 04-30-2025 take 1 tablet by mouth once daily Baclofen 5 mg tablet Discontinued 5 mg PO daily August 03, 2024 3:45pm April 30, 2025 7:08pm muscle spasms Start: 10-29-2023 End: 06-13-2024 take 1 tablet by mouth twice daily Baclofen 5 mg tablet Discontinued 5 mg PO TWICE A DAY February 21, 2024 12:00am June 13, 2024 1:57pm muscle spasms Start: 10-07-2023 End: 02-21-2024 take 1 tablet by mouth twice daily Baclofen 10 mg tablet Discontinued 10 mg PO TWICE A DAY October 07, 2023 1:00am February 21, 2024 6:38pm MUSCLE SPASMS Start: 09-28-2023 End: 10-07-2023 Start: 05-12-2023 End: 08-03-2024 take 1 tablet by mouth four times daily Baclofen 5 mg tablet Discontinued 5 mg PO .QID June 13, 2024 1:51pm August 03, 2024 3:46pm muscle spasms Start: 04-15-2023 End: 05-12-2023 take 2 tablets [...] 28, 2023 1:00am October 07, 2023 1:54pm SPASTICITY IN RIGHT LEG Start: 07-18-2021 End: 11-05-2022 baclofen 5 mg [...] BID, # 30 tab(s), 6 Refill(s), Pharmacy: [facility]/pharmacy #[id number], 172.7, cm, 06/09/22 8:41:00 EDT, Height, [...] BID, # 180 tab(s), 0 Refill(s), Pharmacy: [facility]/pharmacy #[id number], 172.7, cm, 05/12/22 12:20:00 EDT, Height Start Date: 05/19/22 Status: Ordered Start: 05-19-2022 End: 10-20-2023 carvedilol (COREG) 3.125 mg tablet 3.125 mg. 0 05/19/2022 10/20/2023 Discontinued Comment on above: 3.125 mg. Celebrate Multivitamin oral tablet, chewable (20 sources) Start: 05-12-2022 take 1 tablet by mouth once daily Celebrate Multivitamin oral tablet, chewable Dose = 2 tab(s), Chewed, qDay, 0 Refill(s) Start Date: 05/12/22 Status: Ordered cholecalciferol 0.01 mg oral tablet (20 sources) Vitamin D Start: 03-22-2024 cholecalciferol 10 mcg (400 intl units) oral tablet Dose : 10 mcg = 1 tab(s), Oral, Daily, # 30 tab(s), 0 Refill(s) Start Date: 03/22/24 Status: Ordered Start: 09-30-2023 End: 05-29-2025 take 1 tablet by mouth at bedtime Cholecalciferol (Vitamin D3) 25 mcg (1,000 unit) Tablet Discontinued 50 ug PO AT BEDTIME 0 0 September 30, 2023 1:00am May 29, 2025 3:37pm supplement Start: 04-29-2023 Vitamin D (3) 45 units oral capsule See Instructions, 0 Refill(s) Start Date: 04/29/23 Status: Ordered Start: 04-29-2023 ciprofloxacin 3 mg/ml / dexamethasone 1 mg/ml otic suspension (2 sources) Corticosteroid, Quinolone Antimicrobial Start: 12-08-2022 Ciprodex 0.3%-0.1% otic suspension Dose = 4 drop(s), Ear, left, BID, # 7.5 mL, 0 Refill(s), Pharmacy: [facility]/pharmacy #[id number], 172.7, cm, 12/08/22 14:58:00 EST, Height Start Date: 12/08/22 Status: Ordered clonazePAM 1 mg oral tablet (20 sources) Benzodiazepine Start: 11-18-2014 End: 06-20-2024 take 1 tablet by mouth at bedtime Clonazepam 1 MG tablet Active 1 mg PO AT BEDTIME November 18, 2014 1:00am anxiety Comment on above: Take 1 mg by mouth d aily at bedtime. dapagliflozin 5 mg oral tablet (1 source) Sodium-Glucose Cotransporter 2 Inhibitor Start: 02-17-2022 Farxiga 5 mg oral tablet Dose : 5 mg = 1 tab(s), Oral, qDay, # 30 tab(s), 6 Refill(s), Pharmacy: [facility]/pharmacy #[id number], 172.7, cm, 02/17/22 15:57:00 EDT, Height, kg, 02/17/22 15:57:00 EDT, Dosing Weight Start Date: 02/17/22 Status: Ordered Deutetrabenazine (Austedo Xr) 6 mg tablet extended release 24 hr (7 sources) Start: 04-19-2025 take 1 tablet by mouth once daily Deutetrabenazine (Austedo Xr) 6 mg tablet extended release 24 hr Active 6 mg PO DAILY April 19, 2025 12:00am involuntary Movements Start: 04-19-2025 take 1 tablet by maida th once daily Deutetrabenazine (Austedo Xr) 6 mg tablet extended release 24 hr Active 6 mg PO DAILY April 19, 2025 12:00am deutetrabenazine XR (AUSTEDO XR) 6 mg tablet (6 sources) Start: 03-12-2025 End: 09-08-2025 take 1 tablet by mouth once daily deutetrabenazine XR (AUSTEDO XR) 6 mg tablet Take 1 tablet by mouth once daily. 30 tablet 5 04/25/2025 10:16 AM EDT 03/12/2025 09/08/2025 Active Start: 03-12-2025 [...] 100 mg oral capsule (20 sources) Start: 05-29-2025 take 1 capsule by mouth once daily Docusate Sodium 100 mg capsule Active 100 mg PO DAILY May 29, 2025 12:00am CONSTIPATION Start: 06-13-2024 End: 04-30-2025 take 1 capsule by mouth once daily as needed for constipation Docusate Sodium 100 mg capsule Discontinued 100 mg PO DAILY as needed for constipation June 13, 2024 12:00am April 30, 2025 7:08pm Start: 07-29-2023 docusate sodiu m 100 mg oral capsule Dose : 100 mg = 1 cap(s), Oral, BID, PRN as needed for constipation, # 60 cap(s), 2 Refill(s), Pharmacy: [facility]/pharmacy #[id number], 172.7, cm, 08/27/23 13:53:00 EDT, Height, kg, 08/27/23 13:53:00 EDT, Dosing Weight Start Date: 09/08/23 Status: Ordered Docusate Sodium 100 mg tab Take by mouth once daily. Active escitalopram 5 mg oral tablet (20 sources) Serotonin Reuptake Inhibitor Start: 11-28-2024 take 1 tablet by mouth once daily Escitalopram Oxalate 5 mg tablet Active 5 mg PO daily November 28, 2024 1:00am Mood Start: 04-29-2023 End: 02-27-2025 take 1 tablet by mouth once daily Escitalopram Oxalate 10 mg tablet Discontinued 10 mg PO DAILY February 21, 2024 12:00am July 03, 2024 6:46pm mood End: 06-23-2022 take 1 tablet by mouth once daily escitalopram oxalate (LEXAPRO) 20 mg tablet Take 20 mg by mouth once daily. 0 06/23/2022 Discontinued (Other) Comment on above: Take 20 mg by mouth once daily. ferrous sulfate 325 mg oral tablet (20 sources) Start: 02-13-2025 take 1 tablet by mouth once daily Ferrous Sulfate (Feosol) 325 mg (65 mg iron) tablet Active 325 mg PO daily February 13, 2025 12:00am Supplement Start: 08-01-2024 End: 11-28-2024 Ferrous Sulfate 325 mg (65 m g iron) capsule, extended release Discontinued mg PO August 01, 2024 12:00am November 28, 2024 3:09pm furosemide 20 mg oral tablet (20 sources) Loop Diuretic Start: 03-20-2022 take 1 tablet by mouth once daily as needed Furosemide 20 mg tablet Active 20 mg PO daily as needed for for 2lb weight gain June 13, 2024 12:00am Start: 03-09-2022 take 1 tablet by maida th once daily Lasix 20 mg oral tablet See Instructions, 1 tab(s) Oral qDay on e, Thur, Sat, Sun, # 30 tab(s), 6 Refill(s), Pharmacy: [facility]/pharmacy #[id number], 172.7, cm, 03/09/22 15:20:00 EDT, Height, kg, 03/09/22 15:20:00 EDT, Dosing Weight Start Date: 03/09/22 Status: Ordered Start: 03-03-2022 Lasix 20 mg or al tablet Dose : 20 mg = 1 tab(s), Oral, qDay, # 30 tab(s), 0 Refill(s) Start Date: 03/03/22 Status: Ordered Start: 02-17-2022 Lasix 20 mg or al tablet Dose : 20 mg = 1 tab(s), Oral, Wed/Wed/Wed, # 30 tab(s), 3 Refill(s), Pharmacy: [facility]/pharmacy #[id number], 172.7, cm, 02/17/22 15:57:00 EDT, Height, kg, 02/17/22 15:57:00 EDT, Dosing Weight Start Date: 02/17/22 Status: Ordered Start: 12-05-2021 Lasix 20 mg or al tablet Dose : 20 mg = 1 tab(s), Oral, qDay, # 30 tab(s), 3 Refill(s), Pharmacy: [facility]/pharmacy #[id number], 172.7, cm, 12/24/21 2:11:00 EST, Height, kg, 12/24/21 2:11:00 EST, Dosing Weight Start Date: 12/25/21 Status: Ordered Comment on above: as needed. glipiZIDE er 2.5 mg 24 hr extended release oral tablet (20 sources) Sulfonylurea Start: 02-12-2022 glipiZIDE 2.5 mg oral tablet, extended release Dose : 2.5 mg = 1 tab(s), Oral, qDayM, # 90 tab(s), 1 Refill(s), Pharmacy: [facility], 172.7, cm, 12/30/21 10:10:00 EST, Height, kg, 02/12/22 11:01:00 EDT, Dosing Weight Start Date: 02/12/22 Status: Ordered Start: 07-18-2021 glipiZIDE 2.5 mg oral tablet, extended release Dose : 2.5 mg = 1 tab(s), Oral, qDayM, # 90 tab(s), 1 Refill(s), Pharmacy: [facility], 172, cm, 07/18/21 13:16:00 EDT, Height, kg, 07/18/21 13:16:00 EDT, Dosing Weight Start Date: 07/18/21 Status: Ordered hyoscyamine sulfate 0.125 mg oral tablet (20 sources) Start: 12-01-2024 End: 03-05-2025 take 1 tablet by mouth three times daily as needed Hyoscyamine Sulfate 0.125 mg tablet Active 0.125 mg PO THREE TIMES A DAY as needed for dyspepsia 90 2 March 05, 2025 1:49pm take 0.125 mg by maida th three times daily hyoscyamine sulfate 0.125 mg ODT Take 0. 125 mg by mouth three times a day. Active Iron Chews (20 sources) Start: 05-01-2022 Iron Chews See Instructions, 18 mcg gummy daily, 0 Refill(s) Start Date: 05/01/22 Status: Ordered lamoTRIgine 100 mg oral tablet (20 sources) Mood Stabilizer, Anti-epileptic Agent Start: 01-23-2025 take 1 tablet by mouth once daily Lamotrigine 100 mg tablet Active 100 mg PO daily January 23, 2025 1:00am Anxiety linaclotide 0.145 mg oral capsule (20 sources) Guanylate Cyclase-C Agonist Start: 02-14-2025 take 1 capsule by mouth once daily in the morning Linaclotide (Linzess) 145 mcg capsule Active 145 ug PO EVERY MORNING 60 2 February 14, 2025 12:00am Constipation Start: 12-12-2024 End: 04-19-2025 take 1 capsule by mouth once daily in the morning Linaclotide (Linzess) 72 mcg capsule Discontinued 72 ug PO EVERY MORNING 90 December 12, 2024 1:00am April 19, 2025 [...] 71.5 mg-1 mg oral tablet See Instructions, [facility] Brand 84 mg gummy daily, 0 Refill(s) Start Date: 05/01/22 Status: Ordered metFORMIN hydrochloride 500 mg oral tablet (20 sources) Biguanide Start: 05-29-2025 take 1 tablet by mouth twice daily Metformin 500 mg tablet Active 500 mg PO TWICE A DAY May 29, 2025 3:32pm Diabetes Start: 01-18-2025 End: 05-29-2025 take 1 tablet by mouth once daily Metformin 500 mg tablet Discontinued 500 mg PO daily January 18, 2025 1:00am May 29, 2025 3:38pm Diabetes Start: 02-21-2024 End: 11-23-2024 take 1 tablet by mouth once daily Metformin 500 mg tablet extended release 24 hr Discontinued 500 mg PO DAILY February 21, 2024 12:00am November 23, 2024 3:24pm blood sugars Start: 11-18-2014 End: 02-21-2024 take 1 tablet by mouth once daily Metformin 500 MG tablet Discontinued 500 mg PO DAILY November 18, 2014 1:00am February 21, 2024 2:33pm diabetes Start: 11-18-2014 End: 10-26-2023 take 1 tablet by mouth twice daily metFORMIN (GLUCOPHAGE) 500 mg tablet Take 1 tablet by mouth twice daily. 0 12/06/2014 Active Comment on above: Take 1 tablet by maida twice daily. ondansetron 4 mg disintegrating oral tablet (16 sources) Serotonin-3 Receptor Antagonist Start: take 1 tablet by mouth every eight hours Ondansetron 4 mg tablet,disintegrati ng Active 4 mg PO Q8H 30 3 May 30, 2025 12:00am Start: 05-22-2025 End: 05-29-2025 take 1 tablet by mouth every six hours as needed for nausea and vomiting Ondansetron 4 mg tablet,disintegrating Discontinued 4 mg PO EVERY 6 HOURS as needed for nausea and vomiting 20 0 May 22, 2025 12:00am May 29, 2025 3:38pm Start: 11-02-2024 End: 11-28-2024 take 1 tablet by mouth every eight hours as needed for nausea Ondansetron 4 mg tablet,disintegrating Discontinued 4 mg PO EVERY 8 HOURS NEEDED as needed for Nausea 10 0 November 02, 2024 1:00am November 28, 2024 3:06pm oxyCODONE hydrochloride 5 mg oral tablet (7 sources) Opioid Agonist Start: 04-30-2025 take 1 tablet by mouth every six hours as needed for pain Oxycodone 5 mg Tablet Active 5 mg PO EVERY 6 HOURS NEEDED as needed for Pain Score 6-10 28 7 0 April 30, 2025 Pain in pelvis Pelvic and perineal pain phenazopyridine hydrochloride 100 mg oral tablet (9 sources) Start: 04-19-2025 take 1 tablet by mouth three times daily as needed for pain Phenazopyridine 100 mg tablet Active 100 mg PO 3 TIMES DAILY NEEDED as needed for bladder pain April 19, 2025 12:00am polyethylene glycol 3350 05851 mg powder for oral solution (20 sources) Osmotic Laxative Start: 11-28-2024 Polyethylene Glycol 3350 (Miralax) 17 gram/dose powder Active 17 g PO DAILY November 28, 2024 1:00am Constipation Start: 11-28-2024 Polyethylene G lycol 3350 (Miralax) 17 gram/dose powder Active 17 g PO TWICE A DAY November 28, 2024 1:00am Start: 07-29-2023 End: 03-13-2024 Polyethylene Glycol 3350 (Mi ralax) 17 gram/dose powder Discontinued 17 g PO DAILY 510 30 0 February 29, 2024 12:00am March 13, 2024 5:52pm bowels Hold if more than 1 bowel moods per day polyethylene glycol 400 2.5 mg/ml ophthalmic solution (12 sources) Start: 01-23-2025 apply 0.25 drop(s) into the eye(s) every hour as needed Polyethylene Glycol 400 (Blink Gel Tears) 0.25 % drops,gel Active 1 NMA OPHTHALMIC .q1hr as needed for Dry eyes January 23, 2025 1:00am Start: 01-23-2025 Start: 01-23-2025 Polyethylene G lycol 400 (Blink Gel Tears) 0.25 % drops,gel Active NMA OPHTHALMIC January 23, 2025 1:00am Polyethylene Glycols (12 sources) polyethylene gly col 400 (BLINK TEARS [...] day, # 84 tab(s), 0 Refill(s), Pharmacy: [facility]/pharmacy #[id number], 172.7, cm, 11/02/22 16:36:00 EST, Height Start Date: 11/05/22 Stop Date: 11/19/22 Status: Ordered End: 06-23-2022 take 1 tablet by mouth three times daily pramipexole (MIRAPEX) 0.25 mg tablet Take 0.25 mg by mouth three times daily. 0 06/23/2022 Discontinued (Other) Comment on above: Take 0.25 mg by mout h three times daily. probiotic 20 mg (2 sources) Start: 05-29-2025 take 20 mg by mouth once daily probiotic 20 mg Active PO DAILY May 29, 2025 12:00am ramipril 2.5 mg oral capsule (10 sources) Angiotensin Converting Enzyme Inhibitor Start: 02-12-2022 ramipril 2.5 mg oral capsule Dose : 2.5 mg = 1 cap(s), Oral, qDay, # 90 cap(s), 1 Refill(s), Pharmacy: [facility], 172.7, cm, 12/30/21 10:10:00 EST, Height, kg, 02/12/22 11:01:00 EDT, Dosing Weight Start Date: 02/12/22 Status: Ordered Start: 02-04-2022 ramipril 2.5 m g oral capsule Dose : 2.5 mg = 1 cap(s), Oral, qDay, # 30 cap(s), 0 Refill(s), Pharmacy: [facility]/pharmacy #[id number], 172.7, cm, 12/30/21 10:10:00 EST, Height, kg, 12/30/21 10:10:00 EST, Dosing Weight Start Date: 02/04/22 Status: Ordered Start: 12-05-2021 End: 02-03-2022 ramipril 2.5 mg oral capsule Dose : 2.5 mg = 1 cap(s), Oral, qDay, # 30 cap(s), 1 Refill(s), Pharmacy: [facility]/pharmacy #[id number], 162, cm, 11/22/21 4:04:00 EST, Height, kg, 11/22/21 4:04:00 EST, Dosing Weight Start Date: 12/05/21 Stop Date: 02/03/22 Status: Ordered rosuvastatin calcium 20 mg oral tablet (20 sources) HMG-CoA Reductase Inhibitor Start: 10-29-2023 take 1 tablet by mouth at bedtime Rosuvastatin 20 mg tablet Active 20 mg PO AT BEDTIME February 21, 2024 12:00am cholesterol Start: 09-24-2023 End: 10-07-2023 take 1 tablet by mouth at bedtime Rosuvastatin 20 mg tablet Discontinued 20 mg PO AT BEDTIME September 28, 2023 1:00am October 07, 2023 1:56pm cholesterol Start: 04-29-2023 rosuvastatin 2 0 mg oral tablet 0 Refill(s) Start Date: 04/29/23 Status: Ordered Start: 05-26-2022 take 1 tablet by maida th once daily rosuvastatin 20 mg oral tablet 1 tab(s), Oral, qDay, stop as of 11/27/22, # 90 tab(s), 3 Refill(s), Pharmacy: [facility], 172.7, cm, 05/12/22 12:20:00 EDT, Height, kg, 05/22/22 12:54:00 EDT, Dosing Weight Start Date: 05/26/22 Status: Ordered Start: 06-16-2021 rosuvastatin 2 0 mg oral tablet Dose : 20 mg = 1 tab(s), Oral, Daily, # 90 tab(s), 3 Refill(s), Pharmacy: [facility], 170.3, cm, 04/17/21 13:26:00 EDT, Height, kg, 04/17/21 13:26:00 EDT, Dosing Weight Start Date: 06/16/21 Status: Ordered Start: 08-29-2010 take 1 tablet by maida th once daily rosuvastatin (CRESTOR) 5 mg ORAL Tab 1 qd 0 o 08/29/2010 Active Comment on above: 1 qd traZODone hydrochloride 50 mg oral tablet (20 sources) Serotonin Reuptake Inhibitor Start: 11-18-20 14 take 1 tablet by mouth once daily Trazodone 50 MG tablet Active 50 mg PO DAILY November 18, 2014 1:00am Anxiety Comment on above: Take 50 mg by [...] 0 Refill(s) Start Date: 08/01/21 Status: Ordered (18 sources) Start: 04-19-20 Start: 02-13-2025 Start: 08-01-2024 End: 11-28-2024 Start: 06-13-2024 End: 01-18-2025 Start: 06-13-2024 End: 11-23-2024 Start: 09-28-2023 End: 02-21-2024 Start: 09-28-2023 End: 10-07-2023 Start: 09-28-2023 End: 10-07-2023 Start: 11-18-2014 End: 06-13-2024 Completed/Discontinued Medications Medication Drug Class(es) Dates Sig (Normalized) Sig (Original) acetaminophen 500 mg oral tablet (20 sources) Start: 03-22-2024 Acetaminophen 500 mg cap 500 mg. 03/22/2024 Active Start: 03-13-2024 End: 04-30-2025 take 1 tablet by mouth every six hours as needed for pain Acetaminophen 500 mg tablet Discontinued 500 mg PO EVERY 6 HOURS NEEDED as needed for Pain Score 1-10 June 13, 2024 1:50pm April 30, 2025 7:08pm Start: 03-13-2024 End: 06-13-2024 take 2 tablets by mouth every six hours as needed for pain Acetaminophen 500 mg Tablet Discontinued 1000 mg PO EVERY 6 HOURS NEEDED as needed for Pain Score 1-10 0 0 March 13, 2024 12:00am June 13, [...] as needed for Fever, pain 1-10/10 0 0 February 29, 2024 12:00am March 13, 2024 5:50pm Start: 02-29-2024 End: 03-13-2024 take 650 mg by mouth every four hours as needed Acetaminophen Discontinued 650 MG PO EVERY 4 HOURS NEEDED 0 February 29, 2024 12:00am March 13, 2024 5:50pm acetaminophen 325 mg / oxyCO DONE hydrochloride 5 mg oral tablet (20 sources) Opioid Agonist Start: 04-19-2025 End: 04-30-2025 Start: 02-05-2025 End: 04-30-2025 Oxycodone-Acetaminophen 5-32 5 mg tablet Discontinued 1 {tbl} PO EVERY 6 HOURS NEEDED as needed for severe pain April 19, 2025 12:00am April 30, 2025 7:09pm Start: 11-18-2024 End: 11-28-2024 Oxycodone-Acetaminophen (Per cocet) 5-325 mg tablet Discontinued 1 {tbl} PO EVERY 6 HOURS as needed for pain 8 2 0 November 18, 2024 November 28, 2024 3:07pm Pain Pain, unspecified Start: 11-18-2024 End: 11-28-2024 Start: 06-28-2024 End: 07-03-2024 Oxycodone-Acetaminophen (Per cocet) 5-325 mg tablet Discontinued 1 {tbl} PO EVERY 6 HOURS as needed for pain 12 3 0 June 28, 2024 July 03, 2024 6:47pm Colitis Noninfective gastroenteritis and colitis, unspecified Start: 06-28-2024 End: 07-03-2024 [id number] 200 actuat albuterol 0.09 mg/actuat metered dose inhaler (20 sources) beta2-Adrenergic Agonist Start: 12-13-2024 End: 12-13-2024 take 4 puff(s) by inhalation once 4 puff, Inhalation, Once, On Wed12/13/24 at 1415, For 1 dose Start: 09-09-2024 End: 04-30-2025 Albuterol Sulfate 90 mcg/act uation HFA aerosol inhaler Discontinued 1 NMA INHALATION EVERY 6 HOURS as needed for shortness of breath or wheezing 8.5 0 September 09, 2024 12:00am April 30, 2025 7:08pm Start: 09-09-2024 End: 04-30-2025 Start: 02-21-2024 albuterol sulf ate 90 mcg/actuation aebs 02/21/2024 Active amLODIPine 5 mg / olmesartan medoxomil 20 mg oral tablet (20 sources) Dihydropyridine Calcium Channel Tomeka, Angiotensin 2 Receptor Tomeka Start: 11-18-2014 End: 09-28-2023 Amlodipine-Olmesartan (Joaquín) 1 UDTAB tablet Discontinued 0.5 NMA PO EVERY OTHER DAY November 18, 2014 1:00am September 29, 2023 12:35am Start: 11-18-2014 End: 09-28-2023 Start: 04-03-2010 End: 06-23-2022 amlodipine bes/olmesartan me d(JOAQUÍN 5 MG-20 MG TAB) Take 1/2 tablet daily 0 04/03/2010 06/23/2022 Discontinued (Other) Comment on above: Take 1/2 tablet edil y amoxicillin 875 mg / clavulanate 125 mg oral tablet (20 sources) Penicillin-class Antibacterial Start: 11-27-2024 End: 12-07-2024 Amoxicillin-Pot Clavulanate 875-125 mg tablet Discontinued 1 {tbl} PO TWICE A DAY 20 10 0 November 27, 2024 1:00am December 06, 2024 1:00am December 07, 2024 1:12am Start: 11-27-2024 End: 12-07-2024 Start: 06-28-2024 End: 07-05-2024 Amoxicillin-Pot Clavulanate 875-125 mg tablet Discontinued 1 {tbl} PO TWICE A DAY 14 7 0 June 28, 2024 12:00am July 05, 2024 4:10pm Start: 06-28-2024 End: 07-05-2024 ascorbic acid 500 mg oral tablet (20 sources) Vitamin C Start: 08-01-2024 End: 11-23-2024 Ascorbic Acid (Vitamin C) 50 0 mg tablet Discontinued 125 mg PO 1000 August 01, 2024 3:34pm November 23, 2024 3:26pm Start: 03-13-2024 End: 02-27-2025 Ascorbic Acid (Vitamin C) 50 0 mg Tablet Discontinued 500 mg PO 1000 30 30 0 March 13, 2024 12:00am August 01, 2024 3:35pm aspirin 81 mg delayed release oral tablet (20 sources) Platelet Aggregation Inhibitor, Nonsteroidal Anti-inflammatory Drug Start: 09-28-2023 End: 10-01-2023 take 1 tablet by mouth every other day Aspirin 81 mg tablet,delayed release (DR/EC) Active 81 mg PO .COMPLEX October 01, 2023 1:00am heart 81 mg orally EVERY OTHER DAY; Start: 09-28-2023 End: 10-01-2023 take 1 tablet by mouth once daily Aspirin 81 mg tablet,delayed release (DR/EC) Discontinued 81 mg PO 1 time daily 1 September 30, 2023 12:54pm October 01, 2023 4:16pm Start: 01-08-2023 End: 04-08-2023 aspirin 81 mg oral delayed r elease tablet Dose : 81 mg = 1 tab(s), Oral, Every other day, # 45 tab(s), 0 Refill(s), Pharmacy: [facility]/pharmacy #[id number], 172.7, cm, 12/08/22 14:58:00 EST, Height, kg, 12/08/22 14:58:00 EST, Dosing Weight Start Date: 01/08/23 Stop Date: 04/08/23 Status: Ordered Start: 12-11-2022 aspirin 81 mg oral delayed release tablet Dose : 81 mg = 1 tab(s), Oral, Every other day, # 15 tab(s), 5 Refill(s), Pharmacy: [facility]/pharmacy #[id number], 172.7, cm, 12/08/22 14:58:00 EST, Height, kg, 12/08/22 14:58:00 EST, Dosing Weight Start Date: 12/11/22 Status: Ordered Start: 12-05-2021 End: 11-30-2022 aspirin 81 mg oral delayed r elease tablet Dose : 81 mg = 1 tab(s), Oral, Every other day, # 90 tab(s), 3 Refill(s), Pharmacy: [facility]/pharmacy #[id number], 162, cm, 11/22/21 4:04:00 EST, Height, kg, 11/22/21 4:04:00 EST, Dosing Weight Start Date: 12/05/21 Stop Date: 11/30/22 Status: Ordered Start: 12-05-2021 End: 11-30-2022 aspirin 81 mg oral delayed r elease tablet Dose : 81 mg = 1 tab(s), Oral, qDay, # 90 tab(s), 3 Refill(s), Pharmacy: [facility]/pharmacy #[id number], 162, cm, 11/22/21 4:04:00 EST, Height, [...] other day. atorvastatin 40 mg oral tablet (20 sources) HMG-CoA Reductase Inhibitor Start: End: take 1 tablet by mouth at bedtime Atorvastatin 40 mg tablet Discontinued 40 mg PO AT BEDTIME October 07, 2023 1:00am February 21, 2024 6:40pm CHOLESTEROL Start: 10-07-2023 End: 02-21-2024 bisacodyl 5 mg delayed release oral tablet (14 sources) Stimulant Laxative Start: 02-29-2024 End: 03-13-2024 take 1 tablet by mouth twice daily Bisacodyl 5 mg Tablet,Delayed Release (Dr/Ec) Discontinued 5 mg PO TWICE A DAY 0 0 February 29, 2024 12:00am March 13, 2024 5:50pm bowels Hold if more than 1 bowel movement per day budesonide 3 mg delayed release oral capsule (20 sources) Corticosteroid Start: 02-29-2024 End: 06-09-2024 take 3 capsules by mouth once daily Budesonide 3 mg Capsule,Delayed,Exte nd.Release Discontinued 9 mg PO DAILY 90 30 0 March 13, 2024 12:00am May 23, 2024 8:41am Start: 02-29-2024 End: 03-13-2024 take 9 mg by mouth once daily Budesonide Active 9 MG P O DAILY 90 30 March 13, 2024 12:00am calcium carbonate 1500 mg / cholecalciferol 0.01 mg oral tablet (16 sources) Vitamin D Start: 02-21-2024 End: 05-23-2024 Start: 02-21-2024 take 1 tablet by maida th twice daily Calcium Carbonate-Vitamin D3 Active 1 TABLET PO TWICE A DAY February 21, 2024 12:00am Start: 12-28-2023 End: 06-25-2024 Calcium Carbonate-Vitamin D3 600 mg-10 mcg (400 unit) tablet Discontinued 1 {tbl} PO TWICE A DAY February 21, 2024 12:00am May 23, 2024 8:41am supplement carbidopa 25 mg / levodopa 100 mg [...] Take 1.5 tablets by mouth three times da bird. Start with 0.5 tablet 3 times a [...] MEALS AND AVOID TAKING WITH IRON SUPPLEMENTS cephalexin 500 mg oral capsule (4 sources) Cephalosporin Antibacterial Start: 05-22-2025 End: 05-29-2025 take 1 capsule by mouth every twelve hours Cephalexin 500 mg capsule Discontinued 500 mg PO Q12H 10 5 0 May 22, 2025 12:00am May 29, 2025 3:36pm Start: 08-19-2022 End: 08-26-2022 cephalexin 500 mg oral capsu le Dose : 500 mg = 1 cap(s), Oral, QID, Take with a probiotic, X 7 day(s), # 28 cap(s), 0 Refill(s), 08/26/22 23:45:00 EDT, Generalized weakness Fatigue, 71.5 Start Date: 08/19/22 Stop Date: 08/26/22 Status: Ordered citalopram 20 mg oral tablet (20 sources) Serotonin Reuptake Inhibitor Start: 11-18-2014 End: 04-22-2024 take 1 tablet by mouth at bedtime Citalopram 20 MG tablet Discontinued 20 mg PO AT BEDTIME November 18, 2014 1:00am March 13, 2024 5:51pm depression Comment on above: Take 1 tablet by maida th once daily. clopidogrel 75 mg oral tablet (20 sources) [id number] Platelet Inhibitor Start: 05-18-2016 End: 03-13-2024 Clopidogrel 75 MG tablet Discontinued 1 {tbl} PO AT BEDTIME May 18, 2016 12:00am March 13, 2024 5:51pm anti platelet Start: 12-26-2009 End: 05-29-2025 Clopidogrel 75 mg Tablet Dis continued 75 mg PO .COMPLEX April 19, 2025 12:00am May 29, 2025 3:50pm Antiplatelet 75 mg orally Wednesday, Wednesday, Wednesday; Comment on above: Take one(1) tablet d aily. Take 75 mg by mouth once daily. dicyclomine hydrochloride 20 mg oral tablet (20 sources) Anticholinergic Start: 05-22-20 End: 05-29-20 take 1 tablet by mouth three times daily Dicyclomine 20 mg tablet Discontinued 20 mg PO THREE TIMES A DAY 30 0 May 22, 2025 12:00am May 29, 2025 3:37pm Start: 03-22-2024 End: 04-21-2024 dicyclomine 10 mg oral capsu le Dose : 20 mg = 2 cap(s), Oral, BID, PRN abd cramping, 30 to 60 minutes before meals, # 60 cap(s), 5 Refill(s), Pharmacy: [facility]/pharmacy #[id number], 172.7, cm, 03/22/24 13:19:00 EDT, Height, kg, 03/22/24 13:19:00 EDT, Dosing Weight Start Date: 04/18/24 Status: Ordered Start: 02-29-2024 End: 01-18-2025 take 2 capsules by mouth three times daily before mealtime Dicyclomine 10 mg Capsule Discontinued 20 mg PO THREE TIMES DAILY BEFORE MEALS 180 30 0 March 13, 2024 12:00am May 23, 2024 8:56am Start: 02-29-2024 End: 02-27-2025 Start: 02-29-2024 End: 03-13-2024 take 20 mg by mouth three times daily before mealtime Dicyclomine Active 20 MG PO THREE TIMES DAILY BEFORE MEALS 180 30 March 13, 2024 12:00am empagliflozin 10 mg oral tablet (20 sources) Sodium-Glucose Cotransporter 2 Inhibitor Start: 09-28-2023 End: 01-18-2025 take 1 tablet by mouth twice daily Empagliflozin (Jardiance) 10 mg tablet Discontinued 5 mg PO TWICE A DAY June 13, 2024 1:48pm August 01, 2024 3:34pm diabetes Start: 02-23-2022 End: 02-27-2025 take 1 tablet by mouth once daily Empagliflozin (Jardiance) 10 mg tablet Discontinued 5 mg PO daily August 01, 2024 3:32pm January 18, 2025 2:30pm diabetes 0.4 ml enoxaparin sodium 100 mg/ml prefilled syringe (20 sources) Low Molecular Weight Heparin Start: 10-07-2023 End: 02-21-2024 Enoxaparin 40 mg/0.4 mL syringe Discontinued 40 mg SC 599October 07, 2023 1:00am February 21, 2024 6:39pm BLOOD THINNER Start: 10-07-2023 End: 02-21-2024 ergocalciferol 1.25 mg oral capsule (20 sources) Provitamin D2 Compound Start: 11-18-2014 End: 09-28-2023 Ergocalciferol (Vitamin D2) (Vitamin D2) 50,000 UNIT capsule Discontinued 2000 [iU] PO AT BEDTIME November 18, 2014 1:00am September 29, 2023 12:38am Start: 11-18-2014 End: 09-28-2023 take 1 capsule by mouth at bedtime [...] by mouth. loratadine 10 mg oral tablet (16 sources) Start: 06-13-2024 End: 11-23-2024 take 1 [...] Status: Ordered melatonin 10 mg oral tablet (16 sources) Start: 06-13-2024 End: 11-23-2024 take 5 mg by mouth at bedtime Melatonin 10 mg tablet Discontinued 5 mg PO BEDTIME June 13, 2024 12:00am November 23, 2024 3:24pm Start: 06-13-2024 End: 11-23-2024 Start: 11-02-2023 melatonin 10 m g oral tablet, chewable Dose : 5 mg = 0.5 tab(s), Chewed, qHS, # 90 tab(s), 0 Refill(s) Start Date: 11/02/23 Status: Ordered 24 hr metoprolol succinate 2 5 mg extended release oral tablet (20 sources) beta-Adrenergic Tomeka Start: 01-18-2025 Start: 09-28-2023 End: 11-23-2024 take 2 tablets by mouth once daily Metoprolol Succinate 25 mg tablet extended release 24 hr Discontinued 12.5 mg PO DAILY September 28, 2023 1:00am November 23, 2024 3:25pm blood pressure On Hold: Order Changed Start: 09-28-2023 take 12.5 mg by mout h once daily Metoprolol Succinate Active 12.5 MG PO DAILY September 28, 2023 1:00am Start: 05-18-2023 End: 05-29-2025 take 1 tablet by mouth once daily Metoprolol Succinate (Toprol Xl) 25 mg tablet extended release 24 hr Discontinued 25 mg PO daily January 18, 2025 1:00am May 29, 2025 3:50pm BP Start: 10-30-2022 metoprolol suc cinate 25 mg oral TABLET extended release Dose : 12.5 mg = 0.5 tab(s), Oral, qDay, Do not crush or chew (controlled release), # 15 tab(s), 6 Refill(s), Pharmacy: [facility]/pharmacy #[id number], 172.7, cm, 10/30/22 10:04:00 EST, Height Start Date: 10/30/22 Status: Ordered Start: 02-12-2022 End: 03-14-2022 Toprol-XL 25 mg oral tablet, extended release Dose : 25 mg = 1 tab(s), Oral, qDay, # 90 tab(s), 1 Refill(s), Pharmacy: [facility], 172.7, cm, 12/30/21 10:10:00 EST, Height, kg, 02/12/22 11:01:00 EDT, Dosing Weight Start Date: 02/12/22 Stop Date: 03/14/22 Status: Ordered Start: 02-04-2022 End: 03-06-2022 Toprol-XL 25 mg oral tablet, extended release Dose : 25 mg = 1 tab(s), Oral, qDay, # 30 tab(s), 0 Refill(s), Pharmacy: [facility]/pharmacy #[id number], 172.7, cm, 12/30/21 10:10:00 EST, Height, kg, 12/30/21 10:10:00 EST, Dosing Weight Start Date: 02/04/22 Stop Date: 03/06/22 Status: Ordered Start: 12-05-2021 End: 02-03-2022 Toprol-XL 25 mg oral tablet, extended release Dose : 25 mg = 1 tab(s), Oral, qDay, # 30 tab(s), 1 Refill(s), Pharmacy: [facility]/pharmacy #[id number], 162, cm, 11/22/21 4:04:00 EST, Height, kg, 11/22/21 4:04:00 EST, Dosing Weight Start Date: 12/05/21 Stop Date: 02/03/22 Status: Ordered Multivitamin tablet (10 sources) Start: 06-13-2024 End: 11-23-2024 Multivitamin tablet Discontinued 2 {tbl} PO DAILY June 13, 2024 12:00am November 23, 2024 3:27pm Multivitamin With Folic Acid (Thera) 1 TABLET tablet (20 sources) Start: 11-18-2014 End: 06-13-2024 take 1 tablet by mouth once daily Multivitamin With Folic Acid (Thera) 1 TABLET tablet Discontinued 1 {tbl} PO DAILY November 18, 2014 1:00am June 13, 2024 1:55pm vitamin Start: 11-18-2014 End: 06-13-2024 take 1 tablet [...] on above: Take one(1) tablet d aily. 24 hr oxybutynin chloride 5 mg extended release oral tablet (20 sources) Cholinergic Muscarinic Antagonist Start: End: take 1 tablet by mouth once daily Oxybutynin Chloride 5 mg tablet extended release 24hr Discontinued 5 mg PO DAILY February 21, 2024 12:00am June 13, 2024 1:57pm bladder Start: 02-21-2024 End: 11-23-2024 take 1 tablet by mouth every other day Oxybutynin Chloride 5 mg tablet extended release 24hr Discontinued 5 mg PO every other day June 13, 2024 1:56pm November 23, 2024 3:27pm bladder Start: 10-29-2023 take 1 tablet by maida th every hour, then take 1 tablet by mouth every other day oxybutynin 5 mg/24 hours oral tablet, extended release Dose : 5 mg = 1 tab(s), Oral, Every other day, # 90 tab(s), 1 Refill(s), Pharmacy: [facility]/pharmacy #[id number], 172.7, cm, 10/29/23 11:29:00 EST, Height, kg, 10/29/23 11:29:00 EST, Dosing Weight Start Date: 10/29/23 Status: Ordered Start: 10-29-2023 take 1 tablet by maida th every hour, then take 0.5 tablet by mouth once daily oxybutynin 5 mg/24 hours oral tablet, extended release Dose : 2.5 mg = 0.5 tab(s), Oral, qDay, # 90 tab(s), 1 Refill(s), Pharmacy: [facility]/pharmacy #[id number], 172.7, cm, 10/29/23 11:29:00 EST, Height, [...] qDay, # 90 tab(s), 0 Refill(s), Pharmacy: [facility]/pharmacy #[id number], 172.7, cm, 05/18/23 10:38:00 EDT, Height, kg, 05/18/23 10:38:00 EDT, Dosing Weight Start Date: 06/15/23 Status: Ordered Start: 02-12-2022 take 1 tablet by maida th every hour, then take 1 tablet by mouth once daily oxybutynin 5 mg/24 hours oral tablet, extended release Dose : 5 mg = 1 tab(s), Oral, qDay, stop as of 11/27/22, # 90 tab(s), 1 Refill(s), Pharmacy: [facility], 172.7, cm, 12/30/21 10:10:00 EST, Height, kg, 02/12/22 11:01:00 EDT, Dosing Weight Start Date: 02/12/22 Status: Ordered Start: 02-04-2022 take 1 tablet by maida th every hour, then take 1 tablet by mouth once daily oxybutynin 5 mg/24 hours oral tablet, extended release Dose : 5 mg = 1 tab(s), Oral, qDay, # 30 tab(s), 0 Refill(s), Pharmacy: [facility]/pharmacy #[id number], 172.7, cm, 12/30/21 10:10:00 EST, Height, kg, 12/30/21 10:10:00 EST, Dosing Weight Start Date: 02/04/22 Status: Ordered Start: 02-13-2021 take 1 tablet by maida th every hour, then take 1 tablet by mouth once daily oxybutynin 5 mg/24 hours oral tablet, extended release Dose : 5 mg = 1 tab(s), Oral, qDay, # 90 tab(s), 3 Refill(s), Pharmacy: [facility], 171, cm, 12/11/20 15:33:00 EST, [...] mg by mouth e very other day. pantoprazole 40 mg delayed release oral tablet (20 sources) Proton Pump Inhibitor Start: End: take 1 tablet by mouth once daily Pantoprazole 40 mg tablet,delayed release (DR/EC) Discontinued 40 mg PO DAILY July 17, 2024 12:00am April 30, 2025 7:09pm GERD Start: 11-18-2014 End: 07-03-2024 take 1 tablet by mouth twice daily Pantoprazole 40 mg Tablet,Delayed Release (Dr/Ec) Discontinued 40 mg PO TWICE A DAY 60 30 0 March 13, 2024 12:00am July 03, 2024 6:47pm Comment on above: Take 1 tablet by maida twice daily. polysaccharide iron complex 150 mg oral capsule (15 sources) Start: 03-13-20 End: 05-23-20 Polysaccharide Iron Complex (Ferrex 150) 150 mg iron Capsule Discontinued 150 mg PO DAILY 30 30 0 March 13, 2024 12:00am May 23, 2024 8:42am microencapsulated potassium chloride 20 meq extended release oral tablet (14 sources) Start: 03-13-20 End: 05-23-20 take 1 tablet by mouth twice daily at mealtime Potassium Chloride 20 mEq Tablet,Er Particles/Crystals Discontinued 20 meq PO TWICE DAILY WITH MEALS 60 30 0 March 13, 2024 12:00am May 23, 2024 8:42am Start: 02-17-2022 potassium chlo ride 20 mEq oral tablet, extended release Dose : 20 mEq = 1 tab(s), Oral, qDay, Take with food, # 30 tab(s), 6 Refill(s), Pharmacy: [facility]/pharmacy #[id number], 172.7, cm, 02/17/22 15:57:00 EDT, Height, kg, 02/17/22 15:57:00 EDT, Dosing Weight Start Date: 02/17/22 Status: Ordered predniSONE 50 mg oral tablet (4 sources) Start: 11-27-2022 End: 12-02-2022 predniSONE 50 mg oral tablet Dose : 25 mg = 0.5 tab(s), Oral, qDayM, # 2.5 tab(s), 0 Refill(s), Pharmacy: [facility]/pharmacy #[id number], 172.7, cm, 11/27/22 14:14:00 EST, Height Start Date: 11/27/22 Stop Date: 12/02/22 Status: Ordered prochlorperazine 5 mg oral tablet (20 sources) Phenothiazine Start: 03-13-2024 End: 01-23-2025 take 2 tablets by mouth every four hours as needed for nausea Prochlorperazine Maleate 5 mg Tablet Discontinued 10 mg PO EVERY 4 HOURS NEEDED as needed for Nausea/Vomiting 120 30 0 March 13, 2024 12:00am January 23, 2025 2:15pm Start: 03-13-2024 End: 02-27-2025 take 1 tablet by mouth every eight hours as needed prochlorperazine (COMPAZINE) 5 mg tablet Take 5 mg by mouth every 8 hours as needed for nausea/vomiting. 04/05/2024 02/27/2025 Discontinued Start: 03-13-2024 take 10 mg by mouth every four hours as needed Prochlorperazine Maleate Active 10 MG PO EVERY 4 HOURS NEEDED 120 30 March 13, 2024 12:00am sacubitril 24 mg / valsartan 26 mg oral tablet (20 sources) Angiotensin 2 Receptor Tomeka Start: 02-21-2024 End: 01-18-2025 Start: 09-28-2023 End: 02-21-2024 sacubitril-valsartan Discont inued 0.5 {tbl} PO TWICE A DAY September 28, 2023 1:00am February 21, 2024 2:33pm HTN Start: 09-28-2023 End: 02-21-2024 sacubitril-valsartan Discont inued 0.5 {tbl} PO TWICE A DAY September [...] 21, 2024 12:00am January 18, 2025 2:30pm heart On Hold: Resume on 07/26/24. Hold unless otherwise advised by your outpatient physician Comment on above: Take 1 tablet by maida th twice daily. spironolactone 25 mg oral tablet (20 sources) Aldosterone Antagonist Start: 10-07-2023 Spironolactone Active 12.5 MG PO October 07, 2023 1:00am Start: 09-28-2023 End: 10-07-2023 spironolactone Discontinued 0.5 {tbl} PO MOWEFR September 28, 2023 1:00am October 07, 2023 1:53pm EDEMA Start: 09-28-2023 End: 10-07-2023 spironolactone Discontinued 0.5 {tbl} PO MOWEFR September 28, 2023 1:00am October 07, 2023 1:53pm Start: 09-28-2023 End: 10-07-2023 spironolactone Discontinued 0.5 TABLET PO MOWEFR September 28, 2023 1:00am October 07, 2023 1:53pm Start: 09-28-2023 End: 10-07-2023 spironolactone Discontinued 0.5 TABLET PO MOWEFR November 7th, 2023 12:00am October 07, 2023 12:53pm Start: 09-28-2023 spironolactone Active 0.5 TABLET PO September 28, 2023 12:00am Start: 02-01-2023 End: 01-18-2025 Start: 04-13-2022 spironolactone 25 mg oral tablet Dose : 12.5 mg = 0.5 tab(s), Oral, Wed/Wed/Wed, # 30 tab(s), 3 Refill(s), Pharmacy: [id number], 172.7, cm, 03/20/22 8:38:00 EDT, Height, kg, 03/20/22 8:38:00 EDT, Dosing Weight Start Date: 04/13/22 Status: Ordered Start: 12-25-2021 End: 02-27-2025 Spironolactone 25 mg tablet Discontinued 12.5 mg PO .COMPLEX October 07, 2023 1:00am January 18, 2025 2:30pm FLUID On Hold: Resume on 07/26/24. Hold unless otherwise advised by your outpatient physician 12.5 mg orally every other day; Start: 12-25-2021 take 1 tablet by once daily Aldactone 25 mg oral tablet See Instructions, 1 tab(s) Oral qDay wed,wed,wed, # 15 tab(s), 3 Refill(s), Pharmacy: [facility]/pharmacy #[id number], 172.7, cm, 12/24/21 2:11:00 EST, Height, kg, 12/24/21 2:11:00 EST, Dosing Weight Start Date: 12/25/21 Status: Ordered Comment on above: 12.5 mg. 12.5 mg every other day. vancomycin 25 mg/ml oral solution (14 sources) Glycopeptide Antibacterial Start: 02-29-20 End: 03-13-20 24 Vancomycin (Firvanq) 25 mg/mL Recon Soln Discontinued 125 mg PO EVERY 6 HOURS 200 10 0 February 29, 2024 12:00am March 13, 2024 5:52pm preventive vitamin B12 (20 sources) Vitamin B12 Start: 06-13-20 End: 01-18-20 [...] Refill(s) Start Date: 07/29/23 Status: Ordered vitamin B17-lmrvv acid (20 sources) Start: 09-28-2023 End: 10-07-2023 vitamin L09-hygei acid Disco ntinued 1 {tbl} PO DAILY September 28, 2023 1:00am October 07, 2023 1:56pm vitamin Start: 09-28-2023 End: 10-07-2023 vitamin Z64-ehslu acid Disco ntinued 1 {tbl} PO DAILY September 28, 2023 1:00am October 07, 2023 1:56pm Start: 09-28-2023 End: 10-07-2023 take 1 tablet by mouth once daily vitamin K80-jufwl acid Discontinued 1 TABLET PO DAILY September 28, 2023 1:00am October 07, 2023 1:56pm Start: 09-28-2023 End: 10-07-2023 take 1 tablet by mouth once daily vitamin T14-abrkk acid Discontinued 1 TABLET PO DAILY September 28, 2023 12:00am October 07, 2023 12:56pm Start: 09-28-2023 take 1 tablet by maida th once daily vitamin N87-lpnit acid Active 1 TABLET PO DAILY September 28, 2023 12:00am Start: 09-28-2023 vitamin B12-fo lic acid Active PO September 28, 2023 12:00am Problems Active Problems Problem Classification Problem Date Documented Date Episodic/Chronic Abdominal pain (20 sources) Inguinal pain; Translations: [Chronic abdominal pain] Onset: 08-27-2023 Episodic Comment on above: over bladder area Acute and unspecified renal failure (14 sources) Acute renal failure syndrome; Translations: [Acute [...] 07-11-2019 Chronic Cardiac and circulatory congenital anomalies (20 sources) Patent foramen ovale; Translations: [Patent foramen ovale] 05-19-2016 Chronic Chronic kidney disease (20 sources) Chronic kidney disease stage 3; Translations: [Chronic kidney disease, stage 3 (moderate)] Onset: 2 12-30-2019 Chronic Chronic kidney disease (2 sources) Chronic kidney disease; Translations: [Chronic kidney disease, stage 3a (HCC)] Onset: 4 Conditions associated with dizziness or vertigo (20 sources) Peripheral vertigo; Translations: [Other peripheral vertigo, unspecified ear] Onset: 0 01-14-2010 Episodic Conduction disorders (20 sources) Left bundle branch [...] Chronic Coronary atherosclerosis and other heart disease (14 sources) Stented coronary artery; Translations: [Presence of coronary angioplasty implant and graft] 06-13-2024 Episodic Deficiency and other anemia (2 sources) Iron deficiency anemia secondary to blood loss (chronic); Translations: [Iron deficiency anemia secondary to blood loss (chronic)] Onset: 5 Chronic Deficiency and other anemia (20 sources) Anemia; Translations: [Anemia, unspecified] Onset: 2 Episodic Deficiency and other anemia (18 sources) Chronic anemia; Translations: [Anemia, unspecified] 04-19-2025 Episodic Deficiency and other anemia (2 sources) Anemia, unspecified; Translations: [Anemia, unspecified] Onset: 4 Episodic Deficiency and other anemia (1 source) [...] 2 07-11-2019 Chronic Fluid and electrolyte disorders (11 sources) Hyperosmolality with hypernatremia; Translations: [Hyperosmolality and [...] [Hypertensive heart failure] 04-29-2023 Chronic Intestinal infection (14 sources) Clostridium difficile colitis; Translations: [Enterocolitis due to Clostridium difficile, not specified as recurrent] 02-29-2024 Episodic Malaise and fatigue (20 sources) Asthenia; Translations: [Weakness] Onset: 2 Episodic Mood disorders (20 sources) Seasonal affective disorder; Translations: [Severe major depression] 11-02-2022 Chronic Nausea and vomiting (3 sources) Nausea and vomiting; Translations: [Nausea with vomiting, unspecified] 05-22-2025 Episodic Nutritional deficiencies (20 sources) Vitamin D deficiency; Translations: [Vitamin D deficiency, unspecified] 10-03-2019 Chronic Nutritional deficiencies (16 sources) Calcium deficiency; Translations: [Dietary calcium deficiency] 04-20-2025 Episodic Occlusion or stenosis of precerebral arteries (1 source) Occlusion and stenosis of bilateral carotid arteries; Translations: [Occlusion and stenosis of bilateral carotid arteries] Onset: Chronic Other aftercare (1 source) Long-term current use of oral 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 medication; Translations: [group home (current) use of oral 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 drugs] Episodic [...] arm; Translations: [Pain in left arm] Onset: 2 Episodic Other connective tissue disease (1 source) Nocturnal muscle cramp; Translations: [Cramp and spasm] Episodic Other connective tissue disease (2 sources) Spasticity; Translations: [Cramp and spasm] Episodic Other connective tissue disease (12 sources) Muscle pain 04-29-2023 Episodic Other connective tissue disease (5 sources) Other muscle spasm; Translations: [Spasm of muscle] 10-07-2023 Episodic Other connective tissue disease (13 sources) Cramp in lower limb; Translations: [Cramp and spasm] 02-29-2024 Episodic Other connective tissue disease (1 source) Cramp and spasm; Translations: [Cramp of limb] 03-15-2024 Episodic Other diseases of bladder and urethra (20 sources) Overactive bladder; Translations: [Overactive bladder] 10-01-2023 Chronic Other diseases of bladder and urethra (5 sources) Overactive bladder; Translations: [Hypertonicity of bladder] 10-07-2023 Chronic Other endocrine disorders (12 sources) 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 Other gastrointestinal disorders (20 sources) Irritable bowel syndrome; Translations: [Irritable bowel syndrome without diarrhea] 04-20-2025 Chronic Other gastrointestinal disorders (1 source) Irritable bowel syndrome without diarrhea; Translations: [Irritable bowel syndrome, unspecified] Onset: Chronic Other gastrointestinal disorders (20 sources) Constipation; Translations: [Constipation, unspecified] 07-29-2023 Episodic Other gastrointestinal disorders (20 sources) Chronic constipation; Translations: [Other constipation] 02-13-2025 Episodic Other gastrointestinal disorders (12 sources) History of ischemic colitis; Translations: [Personal history of other diseases of the digestive system] 10-17-2024 Episodic Other gastrointestinal disorders (3 sources) Other constipation; Translations: [Other constipation] Onset: Episodic Other hematologic conditions (20 sources) RBC [...] Other hereditary and degenerative nervous system conditions (8 sources) Tardive dyskinesia; Translations: [Drug induced subacute [...] field] 04-17-2021 Episodic Other lower respiratory disease (16 sources) Cough; Translations: [Cough] 02-19-2024 Episodic Other lower respiratory disease (19 sources) Dyspnea; Translations: [Other forms of dyspnea] [...] 4 04-29-2023 Chronic Peripheral and visceral atherosclerosis (14 sources) Occlusion of superior mesenteric artery; Translations: [Acute infarction of intestine, part and extent unspecified] 09-14-2024 Episodic Residual codes; unclassified (16 sources) Chill 11-27-2022 Episodic Residual codes; unclassified (20 sources) Insomnia; Translations: [Insomnia, unspecified] 10-07-2023 Episodic Residual codes; unclassified (4 sources) Screening due 11-26-2023 Episodic Residual codes; unclassified (1 source) Insomnia, unspecified; Translations: [Insomnia, unspecified] 03-15-2024 Episodic Screening and history of mental health and substance abuse codes (20 sources) Tobacco use and exposure - finding 08-13-2020 Chronic Substance-related disorders (1 source) Nicotine dependence; Translations: [Nicotine dependence, cigarettes, uncomplicated] Chronic Superficial injury; contusion (12 sources) Contusion of hip; Translations: [Contusion of left hip, initial encounter] 03-10-2025 Episodic Transient cerebral ischemia (20 sources) Transient cerebral ischemia; Translations: [Transient cerebral ischemic attack, unspecified] 10-01-2023 Chronic Unclassified (20 sources) Drug therapy finding 10-03-2019 Unclassified (2 sources) Bite of bed bug (finding) 11-27-2022 Unclassified (20 sources) Patient encounter status 07-29-2023 Unclassified (4 sources) Medication refused 11-26-2023 Unclassified (2 sources) Body mass index 20-24 - normal 03-22-2024 Unclassified (4 sources) R10.9 - Unspecified abdominal pain Unclassified (12 sources) R10.2 - Pelvic and perineal pain Unclassified (1 source) Other low back pain; Translations: [Other low back pain] Onset: 5 Urinary tract infections (3 sources) Urinary tract infectious disease; Translations: [Urinary tract infection, site not specified] 05-22-2025 Episodic Past or Other Problems Problem Classification Problem Date Documented Date Episodic/Chronic Biliary tract disease (20 sources) Biliary calculus; Translations: [Calculus of gallbladder without cholecystitis without obstruction] Onset: 12-26-2014 12-26-2014 Episodic Noninfectious gastroenteritis (20 sources) Colitis; Translations: [Noninfective gastroenteritis and colitis, unspecified] Onset: 07-12-2024 02-21-2024 Episodic Other and unspecified benign neoplasm (20 sources) History of polyp of colon; Translations: [Personal history of colonic polyps] Onset: 02-21-2015 Resolved: 02-21-2015 Episodic Other lower respiratory disease (1 source) Solitary pulmonary nodule; Translations: [Solitary pulmonary nodule] Onset: 07-21-2024 Episodic Other lower respiratory disease (1 source) Shortness of breath; Translations: [Shortness of breath] Onset: 10-03-2024 Episodic Other screening for suspected conditions (not mental disorders or infectious disease) (20 sources) Partial thromboplastin time increased; Translations: [Abnormal coagulation profile] Onset: 08-01-2024 08-01-2024 Episodic Pleurisy; pneumothorax; pulmonary collapse (1 source) Interstitial emphysema; Translations: [Interstitial emphysema] Onset: 08-13-2024 Episodic Syncope (15 sources) Syncope and collapse; Translations: [Syncope and collapse] Onset: 12-04-2024 11-28-2024 Episodic Results Test Name Value Interpretation Reference Range Facility Gastroenterology Visit Repor ton 05-30-2025 Gastroenterology Visit Report Normal [facility] Cardiology Visit Reporton Cardiology Visit Report Normal [facility] Urine Cultureon 05-25-2025 [facility] Normal [facility] Comment on above: Performed By: #### M 100.2200 ####[facility] [address] [place], [place], [id number] Absolute lymphocyte countOrd ered By: Fazal Heller on 05-22-2025 Lymphocytes Auto (Unsp spec) [#/Vol] 1.30 10*3/uL 0.83-4.51 [facility] Absolute neutrophil countOrd ered By: Fazal Heller on 05-22-2025 Neutrophils (Bld) [#/Vol] 5.0 10*3/uL 2.0-7.7 [facility] Anion gap in Serum or Plasma Ordered By: Fazal Heller on 05-22-2025 Anion gap [Moles/Vol] 10 mmol/L 5-15 [facility] Automated blood erythrocyte countOrdered By: Fazal Heller on 05-22-2025 RBC (Bld) [#/Vol] 3.05 10*6/uL Low 4.2-5.4 [facility] Comment on above: Performed By: #### L 500.4050, L501.2450, L100.0100 ####[facility] [address] [place], [address] Automated blood hematocrit ( percentage)Ordered By: Fazal Heller on 05-22-2025 Hematocrit (Bld) [Volume fraction] 29.1 % Low 37-47 [facility] Comment on above: Performed By: #### L 500.4050, L501.2450, L100.0100 ####[facility] [address] [place], [address] Automated lymphocyte count a s percentage of total leukocytesOrdered By: Fazal Heller on 05-22-2025 Lymphocytes/100 WBC Auto (Unsp spec) 17.5 % Low 19-41 [facility] BUN/creatinine ratioOrdered By: Fazal Heller on 05-22-2025 Urea nitrogen/Creatinine [Mass ratio] 20.0 mg/mg 10-20 [facility] Basophil percentageOrdered B y: Fazal Heller on 05-22-2025 Basophils/100 WBC (Bld) 0.4 % Normal 0-1 [facility] Comment on above: Performed By: #### L 500.4050, L501.2450, L100.0100 ####[facility] [address] [place], [address] Bilirubin Test strip Ql (U)O rdered By: Fazal Heller on 05-22-2025 Bilirubin Ql (U) 6 mg/dL High Negative [facility] Comment on above: COLOR OF URINE MAY A FFECT DIPSTICK RESULTS. Bilirubin, totalOrdered By: Fazal Heller on 05-22-2025 Bilirubin [Mass/Vol] 0.27 mg/dL 0.00-1.30 [facility] CBC W/Diff, Automatedon Absolute Lymph 1.30 X10 3/uL Normal 0.83-4.51 [facility] Comment on above: Performed By: #### L 500.4050, L501.2450, L100.0100 ####[facility] [address] [place], [address] Absolute Neut 5.0 X10 3/uL Normal 2.0-7.7 [facility] Comment on above: Performed By: #### L 500.4050, L501.2450, L100.0100 ####[facility] [address] [place], [address] Lymphocytes/100 WBC (Bld) 17.5 % Low 19-41 [facility] Comment on above: Performed By: #### L 500.4050, L501.2450, L100.0100 ####[facility] [address] [place], [address] RDW SD 45.8 fl High 35.1-43.9 [facility] Comment on above: Performed By: #### L 500.4050, L501.2450, L100.0100 ####[facility] [address] [place], [address] Absolute Lymph 1.18 X10 3/uL Normal 0.83-4.51 [facility] Comment on above: Performed By: #### L 501.2450, L500.4050, L100.0100 ####[facility] [address] [place], [address] Absolute Neut 5.1 X10 3/uL Normal 2.0-7.7 [facility] Comment on above: Performed By: #### L 501.2450, [id number], L100.0100 ####[facility] [address] [place], [address] Basophils/100 WBC (Bld) 0.4 % Normal 0-1 [facility] Comment on above: Performed By: #### L 501.2450, [id number], L100.0100 ####[facility] [address] [place], [address] Eosinophils/100 WBC (Bld) 2.1 % Normal 0-5 [facility] Comment on above: Performed By: #### L 501.2450, L500.4050, L100.0100 ####[facility] [address] [place], [address] Erythrocyte distribution width (RBC) [Ratio] 13.2 % Normal 11.6-14.6 [facility] Comment on above: Performed By: #### L 501.2450, L500.4050, L100.0100 ####[facility] [address] [place], [address] Hematocrit (Bld) [Volume fraction] 32.8 % Low 37-47 [facility] Comment on above: Performed By: #### L 501.2450, L500.4050, L100.0100 ####[facility] [address] [place], [address] Hemoglobin (Bld) [Mass/Vol] 10.6 g/dL Low 12.0-15.0 [facility] Comment on above: Performed By: #### L 501.2450, L500.4050, L100.0100 ####[facility] [address] [place], [address] IG% 0.400 Normal 0.0-0.9 [facility] Comment on above: Result Comment: IG% - Immature Granulocytes (promyelocytes, myelocytes andmetamyelocytes) > 1% indicates that a LEFT SHIFT is Present. Performed By: #### L 500.4050, L501.2450, L100.0100 ####[facility] [address] [place], [address] Performed By: #### L 501.2450, L500.4050, L100.0100 ####[facility] [address] [place], [address] Lymphocytes/100 WBC (Bld) 16.2 % Low 19-41 [facility] Comment on above: Performed By: #### L 501.2450, L500.4050, L100.0100 ####[facility] [address] [place], [address] MCH (RBC) [Entitic mass] 30.9 pg Normal 27.0-32.0 [facility] Comment on above: Performed By: #### L 501.2450, L500.4050, L100.0100 ####[facility] [address] [place], [address] MCHC (RBC) [Mass/Vol] 32.3 g/dL Normal 32-36 [facility] Comment on above: Performed By: #### L 501.2450, L500.4050, L100.0100 ####[facility] [address] [place], [address] MCV (RBC) [Entitic vol] 95.6 fL Normal 81-99 [facility] Comment on above: Performed By: #### L 501.2450, L500.4050, L100.0100 ####[facility] [address] [place], [address] Monocytes/100 WBC (Bld) 10.4 % High 0-10 [facility] Comment on above: Performed By: #### L 501.2450, L500.4050, L100.0100 ####[facility] [address] [place], [address] Neutrophils/100 WBC (Bld) 70.5 % High 47-70 [facility] Comment on above: Performed By: #### L 501.2450, L500.4050, L100.0100 ####[facility] [address] [place], [address] Nucleated RBC (Bld) [#/Vol] 0 10*3/uL Normal 0-5 [facility] Comment on above: Performed By: #### L 500.4050, L501.2450, L100.0100 ####[facility] [address] [place], [address] Performed By: #### L 501.2450, L500.4050, L100.0100 ####[facility] [address] [place], [address] Platelet mean volume (Bld) [Entitic vol] 10.2 fL Normal 6.2-12.0 [facility] Comment on above: Performed By: #### L 501.2450, L500.4050, L100.0100 ####[facility] [address] [place], [address] Platelets (Bld) [#/Vol] 221 10*3/uL Normal 150-450 [facility] Comment on above: Performed By: #### L 501.2450, L500.4050, L100.0100 ####[facility] [address] [place], [address] RBC (Bld) [#/Vol] 3.43 10*6/uL Low 4.2-5.4 [facility] Comment on above: Performed By: #### L 501.2450, L500.4050, L100.0100 ####[facility] [address] [place], [address] RDW SD 46.4 fl High 35.1-43.9 [facility] Comment on above: Performed By: #### L 501.2450, L500.4050, L100.0100 ####[facility] [address] [place], [address] WBC (Bld) [#/Vol] 7.3 10*3/uL Normal 4.4-11.0 [facility] Comment on above: Performed By: #### L 501.2450, L500.4050, L100.0100 ####[facility] [address] [place], [address] CTA Abd/Pelvis W/WO Contrast on 05-22-2025 CTA Abd/Pelvis W/WO Contrast Normal [facility] Carbon dioxide, total [Moles /volume] in Central venous bloodOrdered By: Fazal Heller on 05-22-2025 CO2 [Moles/Vol] 25.3 mmol/L 21.0-32.0 [facility] Chloride assayOrdered By: Renny Heller on 05-22-2025 Chloride [Moles/Vol] 102 mmol/L 98-108 [facility] Comprehensive Metabolic Prof ilon 05-22-2025 Albumin [Mass/Vol] 3.1 g/dL Low 3.4-4.8 [facility] Comment on above: Performed By: #### L 500.4050, L501.2450, L100.0100 ####[facility] [address] [place], [address] Albumin/Globulin [Mass ratio] 0.9 {ratio} Normal 0.9-2.4 [facility] Comment on above: Performed By: #### L 500.4050, L501.2450, L100.0100 ####[facility] [address] [place], [address] ALK PHOS 67 U/L Normal 35-104 [facility] Comment on above: Performed By: #### L 500.4050, L501.2450, L100.0100 ####[facility] [address] [place], [address] ALT [Catalytic activity/Vol] 7 U/L Normal <=34 [facility] Comment on above: Performed By: #### L 500.4050, L501.2450, L100.0100 ####[facility] [address] [place], [address] AST [Catalytic activity/Vol] 28 U/L Normal <=31 [facility] Comment on above: Performed By: #### L 500.4050, L501.2450, L100.0100 ####[facility] [address] [place], [address] Bilirubin [Mass/Vol] 0.27 mg/dL Normal 0.00-1.30 [facility] Comment on above: Performed By: #### L 500.4050, L501.2450, L100.0100 ####[facility] [address] [place], [address] BUN/CRE 20.0 RATIO Normal 10-20 [facility] Comment on above: Performed By: #### L 500.4050, L501.2450, L100.0100 ####[facility] [address] [place], [address] Calcium [Mass/Vol] 8.7 mg/dL Normal 7.6-11.0 [facility] Comment on above: Performed By: #### L 500.4050, L501.2450, L100.0100 ####[facility] [address] [place], [address] Chloride [Moles/Vol] 102 mmol/L Normal 98-108 [facility] Comment on above: Performed By: #### L 500.4050, L501.2450, L100.0100 ####[facility] [address] [place], [address] CO2 [Moles/Vol] 25.3 mmol/L Normal 21.0-32.0 [facility] Comment on above: Performed By: #### L 500.4050, L501.2450, L100.0100 ####[facility] [address] [place], [address] Creatinine [Mass/Vol] 1.42 mg/dL High 0.70-1.20 [facility] Comment on above: Performed By: #### L 500.4050, L501.2450, L100.0100 ####[facility] [address] [place], [address] ECRCL 35.59 ml/min Low 50-250 [facility] Comment on above: Performed By: #### L 500.4050, L501.2450, L100.0100 ####[facility] [address] [place], [address] GAP 10 Normal 5-15 [facility] Comment on above: Performed By: #### L 500.4050, L501.2450, L100.0100 ####[facility] [address] [place], [address] GFR/1.73 sq M.predicted among non-blacks MDRD (S/P/Bld) [Vol rate/Area] 39 mL/min/{1.73_m2} Low >60 [facility] Comment on above: Result Comment: mL/m in/1.73m2 CKD-EPI Creatinine Equation (2020) Performed By: #### L 500.4050, L501.2450, L100.0100 ####[facility] [address] [place], [address] Globulin (S) [Mass/Vol] 3.3 g/dL Normal 2.2-4.2 [facility] Comment on above: Performed By: #### L 500.4050, L501.2450, L100.0100 ####[facility] [address] [place], [address] Glucose [Mass/Vol] 173 mg/dL High 70-99 [facility] Comment on above: Performed By: #### L 500.4050, L501.2450, L100.0100 ####[facility] [address] [place], [address] Potassium [Moles/Vol] 4.6 mmol/L Normal 3.3-5.1 [facility] Comment on above: Performed By: #### L 500.4050, L501.2450, L100.0100 ####[facility] [address] [place], [address] Sodium [Moles/Vol] 137 mmol/L Normal 133-145 [facility] Comment on above: Performed By: #### L 500.4050, L501.2450, L100.0100 ####[facility] [address] [place], [address] T PROT 6.4 g/dL Normal 5.9-8.4 [facility] Comment on above: Performed By: #### L 500.4050, L501.2450, L100.0100 ####[facility] [address] [place], [address] Urea nitrogen [Mass/Vol] 28 mg/dL High 4-19 [facility] Comment on above: Performed By: #### L 500.4050, L501.2450, L100.0100 ####[facility] [address] [place], [address] Albumin [Mass/Vol] 3.2 g/dL Low 3.4-4.8 [facility] Comment on above: Performed By: #### L 501.2450, L500.4050, L100.0100 ####[facility] [address] [place], [address] Albumin/Globulin [Mass ratio] 0.9 {ratio} Normal 0.9-2.4 [facility] Comment on above: Performed By: #### L 501.2450, L500.4050, L100.0100 ####[facility] [address] [place], [address] ALK PHOS 74 U/L Normal 35-104 [facility] Comment on above: Performed By: #### L 501.2450, L500.4050, L100.0100 ####[facility] [address] [place], [address] ALT [Catalytic activity/Vol] 6 U/L Normal <=34 [facility] Comment on above: Performed By: #### L 501.2450, L500.4050, L100.0100 ####[facility] [address] [place], [address] AST [Catalytic activity/Vol] 30 U/L Normal <=31 [facility] Comment on above: Performed By: #### L 501.2450, L500.4050, L100.0100 ####[facility] [address] [place], [address] Bilirubin [Mass/Vol] 0.33 mg/dL Normal 0.00-1.30 [facility] Comment on above: Performed By: #### L 501.2450, L500.4050, L100.0100 ####[facility] [address] [place], [address] BUN/CRE 19.7 RATIO Normal 10-20 [facility] Comment on above: Performed By: #### L 501.2450, L500.4050, L100.0100 ####[facility] [address] [place], [address] Calcium [Mass/Vol] 9.0 mg/dL Normal 7.6-11.0 [facility] Comment on above: Performed By: #### L 501.2450, L500.4050, L100.0100 ####[facility] [address] [place], [address] Chloride [Moles/Vol] 100 mmol/L Normal 98-108 [facility] Comment on above: Performed By: #### L 501.2450, L500.4050, L100.0100 ####[facility] [address] [place], [address] CO2 [Moles/Vol] 23.7 mmol/L Normal 21.0-32.0 [facility] Comment on above: Performed By: #### L 501.2450, L500.4050, L100.0100 ####[facility] [address] [place], [address] Creatinine [Mass/Vol] 1.39 mg/dL High 0.70-1.20 [facility] Comment on above: Performed By: #### L 501.2450, L500.4050, L100.0100 ####[facility] [address] [place], [address] ECRCL 36.36 ml/min Low 50-250 [facility] Comment on above: Performed By: #### L 501.2450, L500.4050, L100.0100 ####[facility] [address] [place], [address] GAP 12 Normal 5-15 [facility] Comment on above: Performed By: #### L 501.2450, L500.4050, L100.0100 ####[facility] [address] [place], [address] GFR/1.73 sq M.predicted among non-blacks MDRD (S/P/Bld) [Vol rate/Area] 40 mL/min/{1.73_m2} Low >60 [facility] Comment on above: Result Comment: mL/m in/1.73m2 CKD-EPI Creatinine Equation (2020) Performed By: #### L 501.2450, L500.4050, L100.0100 ####[facility] [address] [place], [address] Globulin (S) [Mass/Vol] 3.6 g/dL Normal 2.2-4.2 [facility] Comment on above: Performed By: #### L 501.2450, L500.4050, L100.0100 ####[facility] [address] [place], [address] Glucose [Mass/Vol] 236 mg/dL High 70-99 [facility] Comment on above: Performed By: #### L 501.2450, L500.4050, L100.0100 ####[facility] [address] [place], [address] Potassium [Moles/Vol] 4.4 mmol/L Normal 3.3-5.1 [facility] Comment on above: Performed By: #### L 501.2450, L500.4050, L100.0100 ####[facility] [address] [place], [address] Sodium [Moles/Vol] 136 mmol/L Normal 133-145 [facility] Comment on above: Performed By: #### L 501.2450, L500.4050, L100.0100 ####[facility] [address] [place], [address] T PROT 6.8 g/dL Normal 5.9-8.4 [facility] Comment on above: Performed By: #### L 501.2450, L500.4050, L100.0100 ####[facility] [address] [place], [address] Urea nitrogen [Mass/Vol] 27 mg/dL High 4-19 [facility] Comment on above: Performed By: #### L 501.2450, L500.4050, L100.0100 ####[facility] [address] [place], [place], [address] Emergency Department Summary on 05-22-2025 Emergency Department Summary Normal [facility] Eosinophil percentageOrdered By: Fazal Heller on 05-22-2025 Eosinophils/100 WBC (Bld) 2.2 % Normal 0-5 [facility] Comment on above: Performed By: #### L 500.4050, L501.2450, L100.0100 ####[facility] [address] [place], [place], [address] Erythrocyte distribution wid th ratioOrdered By: Fazal Heller on 05-22-2025 Erythrocyte distribution width (RBC) [Ratio] 13.2 % Normal 11.6-14.6 [facility] Comment on above: Performed By: #### L 500.4050, L501.2450, L100.0100 ####[facility] [address] [place], [place], [address] Erythrocyte distribution wid th standard deviationOrdered By: Fazal Heller on 05-22-2025 Erythrocyte distribution width (RBC) [Ratio] 45.8 fl High 35.1-43.9 [facility] Glomerular filtration rate ( GFR) estimation/1.73 sq m using serum, plasma, or whole bOrdered By: Fazal Heller on 05-22-2025 GFR/1.73 sq M.predicted among non-blacks MDRD (S/P/Bld) [Vol rate/Area] 39 mL/min/{1.73_m2} Low >60 [facility] Comment on above: mL/min/1.73m2 CKD-EP I Creatinine Equation (2020) Hemoglobin measurementOrdere d By: Fazal Heller on 05-22-2025 Hemoglobin (Bld) [Mass/Vol] 9.4 g/dL Low 12.0-15.0 [facility] Comment on above: Performed By: #### L 500.4050, L501.2450, L100.0100 ####[facility] [address] [place], [address] Immature granulocytes/100 WB C Auto (Bld)Ordered By: Fazal Heller on 05-22-2025 Immature granulocytes/100 WBC (Bld) 0.400 % 0.0-0.9 [facility] Comment on above: IG% - Immature Granu locytes (promyelocytes, myelocytes and metamyelocytes) > 1% indicates that a LEFT SHIFT is Present. Ketones Test strip Ql (U)Ord ered By: Fazal Heller on 05-22-2025 Ketones Ql (U) Negative Negative [facility] Laboratory - Chemistry and C hemistry - challengeOrdered By: Fazal Heller on 05-22-2025 AST [Catalytic activity/Vol] 28 U/L <32 [facility] Lipaseon 05-22-2025 Lipase [Catalytic activity/Vol] 13 U/L Normal 13-75 [facility] Comment on above: Result Comment: Plea note:LIPASE revised reference range effective 23.New Lipase methodology. Expected to produce lower valuesthan the previous assay method.NEW Reference Range: 13 - 75 U/L Performed By: #### L 500.4050, L501.2450, L100.0100 ####[facility] [address] [place], [address] Lipase [Catalytic activity/Vol] 15 U/L Normal 13-75 [facility] Comment on above: Result Comment: Plehema fay note:LIPASE revised reference range effective 23.New Lipase methodology. Expected to produce lower valuesthan the previous assay method.NEW Reference Range: 13 - 75 U/L Performed By: #### L 501.2450, L500.4050, L100.0100 ####[facility] [address] [place], [address] Lipase measurementOrdered By : Fazal Heller on 05-22-2025 Lipase [Catalytic activity/Vol] 13 U/L 13-75 [facility] Comment on above: Please note:LIPASE r evised reference range effective 23. New Lipase methodology. Expected to produce lower values than the previous assay method. NEW Reference Range: 13 - 75 U/L MCV (mean corpuscular volume ) determinationOrdered By: Fazal Heller on 05-22-2025 MCV (RBC) [Entitic vol] 95.4 fL Normal 81-99 [facility] Comment on above: Performed By: #### L 500.4050, L501.2450, L100.0100 ####[facility] [address] [place], [address] Mean corpuscular hemoglobin (MCH) determinationOrdered By: Fazal Heller on 05-22-2025 MCH (RBC) [Entitic mass] 30.8 pg Normal 27.0-32.0 [facility] Comment on above: Performed By: #### L 500.4050, L501.2450, L100.0100 ####[facility] [address] [place], [address] Mean corpuscular hemoglobin concentration (MCHC) determinationOrdered By: Fazal Heller on 05-22-2025 MCHC (RBC) [Mass/Vol] 32.3 g/dL Normal 32-36 [facility] Comment on above: Performed By: #### L 500.4050, L501.2450, L100.0100 ####[facility] [address] [place], [address] Mean platelet volume determi nationOrdered By: Fazal Heller on 05-22-2025 Platelet mean volume (Bld) [Entitic vol] 10.4 fL Normal 6.2-12.0 [facility] Comment on above: Performed By: #### L 500.4050, L501.2450, L100.0100 ####[facility] [address] [place], [address] Microscopic analysis of urin e for red blood cells (RBC)Ordered By: Fazal Heller on 05-22-2025 Microscopic analysis of urine for red blood cells (RBC) 0-5 SEEN /hpf 0-5 [facility] Monocyte percentageOrdered B y: Fazal Heller on 05-22-2025 Monocytes/100 WBC (Bld) 12.5 % High 0-10 [facility] Comment on above: Performed By: #### L 500.4050, L501.2450, L100.0100 ####[facility] [address] [place], [address] Mucus LM Ql (Urine sed)Order ed By: Fazal Heller on 05-22-2025 Mucus Ql (Urine sed) 0 SEEN /hpf [facility] Neutrophil percentageOrdered By: Fazal Heller on 05-22-2025 Neutrophils/100 WBC (Bld) 67.0 % Normal 47-70 [facility] Comment on above: Performed By: #### L 500.4050, L501.2450, L100.0100 ####[facility] [address] [place], [place], [address] Nitrite Test strip Ql (U)Ord ered By: Fazal Heller on 05-22-2025 Nitrite Ql (U) Positive High Negative [facility] No Panel InformationOrdered By: Fazal Heller on 05-22-2025 28 U/L <32 [facility] Nucleated red blood cell per centageOrdered By: Fazal Heller on 05-22-2025 Nucleated RBC/100 WBC (Bld) [Ratio] 0 % 0-5 [facility] Platelet countOrdered By: Renny Heller on 05-22-2025 Platelets (Bld) [#/Vol] 193 10*3/uL Normal 150-450 [facility] Comment on above: Performed By: #### L 500.4050, L501.2450, L100.0100 ####[facility] [address] [place], [address] Potassium measurement (mass/ volume)Ordered By: Fazal Heller on 05-22-2025 Potassium (Unsp spec) [Mass/Vol] 4.6 mmol/L 3.3-5.1 [facility] Protein Test strip Ql (U)Ord ered By: Fazal Heller on 05-22-2025 Protein Ql (U) 30 mg/dl High Negative [facility] Serum creatinine measurement (mass/volume)Ordered By: Fazal Heller on 05-22-2025 Creatinine [Mass/Vol] 1.42 mg/dL High 0.70-1.20 [facility] Serum globulin measurementOr dered By: Fazal Heller on 05-22-2025 Globulin (S) [Mass/Vol] 3.3 g/dL 2.2-4.2 [facility] Serum glucose measurement (m ass/volume)Ordered By: Fazal Heller on 05-22-2025 Glucose [Mass/Vol] 173 mg/dL High 70-99 [facility] Serum or plasma alanine cisneros otransferase (ALT) measurementOrdered By: Fazal Heller on 05-22-2025 ALT [Catalytic activity/Vol] 7 U/L <35 [facility] Serum or plasma albumin loco urement (mass/volume)Ordered By: Fazal Heller on 05-22-2025 Albumin [Mass/Vol] 3.1 g/dL Low 3.4-4.8 [facility] Serum or plasma albumin/glob ulin mass ratioOrdered By: Fazal Heller on 05-22-2025 Albumin/Globulin [Mass ratio] 0.9 {ratio} 0.9-2.4 [facility] Serum or plasma alkaline sergio sphatase measurementOrdered By: Fazal Heller on 05-22-2025 ALP [Catalytic activity/Vol] 67 U/L 35-104 [facility] Serum or plasma calcium loco urement (mass/volume)Ordered By: Fazal Heller on 05-22-2025 Calcium [Mass/Vol] 8.7 mg/dL 7.6-11.0 [facility] Serum or plasma urea nitroge n measurement (mass/volume)Ordered By: Fazal Heller on 05-22-2025 Urea nitrogen [Mass/Vol] 28 mg/dL High 4-19 [facility] Sodium levelOrdered By: Nelly Heller on 05-22-2025 Sodium [Moles/Vol] 137 mmol/L 133-145 [facility] Squamous epithelial cells de tection in urine sediment by light microscopyOrdered By: Fazal Heller on 05-22-2025 Epithelial cells.squamous LM Ql (Urine sed) 0 SEEN /hpf 5-10 [facility] Total proteinOrdered By: Radha Heller on 05-22-2025 Protein [Mass/Vol] 6.4 g/dL 5.9-8.4 [facility] Urinalysis, Completeon 05-22 BACTERIA 1+ /hpf Normal None Seen [facility] Comment on above: Order Comment: COLOR OF URINE MAY AFFECT DIPSTICK RESULTS.CLEAN CATCH Performed By: #### L 400.0001 ####[facility] [address] [place], [address] RBC 0-5 SEEN Normal 0-5 [facility] Comment on above: Order Comment: COLOR OF URINE MAY AFFECT DIPSTICK RESULTS.CLEAN CATCH Performed By: #### L 400.0001 ####[facility] [address] [place], [address] WBC 25-50 SEEN Normal 0-5 [facility] Comment on above: Order Comment: COLOR OF URINE MAY AFFECT DIPSTICK RESULTS.CLEAN CATCH Performed By: #### L 400.0001 ####[facility] [address] [place], [address] EPI,SQUAMOUS 0 SEEN Normal 5-10 [facility] Comment on above: Order Comment: COLOR OF URINE MAY AFFECT DIPSTICK RESULTS.CLEAN CATCH Performed By: #### L 400.0001 ####[facility] [address] [place], [address] Mucus Ql (Urine sed) 0 SEEN Normal [facility] Comment on above: Order Comment: COLOR OF URINE MAY AFFECT DIPSTICK RESULTS.CLEAN CATCH Performed By: #### L 400.0001 ####[facility] [address] [place], [address] Urine clarityOrdered By: Radha Heller on 05-22-2025 Clarity (U) Sl. Cloudy Clear [facility] Urine color determinationOrd ered By: Fazal Heller on 05-22-2025 Color (U) Ena Yellow [facility] Urine cultureOrdered By: Radha Heller on 05-22-2025 Bacteria identified Cx Nom (U) Pseudomonas aeruginosa Abnormal [facility] Urine glucose detectionOrder ed By: Fazal Heller on 05-22-2025 Glucose Ql (U) Normal mg/dl Normal [facility] Urine leukocyte esterase det ection by dipstickOrdered By: Fazal Heller on 05-22-2025 Leukocyte esterase Test strip Ql (U) 100 /ul High Negative [facility] Urine pHOrdered By: Fazal reis on 05-22-2025 pH (U) 7.0 [pH] 5.0 - 8.0 [facility] Urine sediment bacteria coun t by microscopy (number/high power field)Ordered By: Fazal Heller on 05-22-2025 Bacteria LM.HPF (Urine sed) [#/Area] 1 /[HPF] None Seen [facility] Urine specific gravity measu rementOrdered By: Fazal Heller on 05-22-2025 Specific gravity (U) [Rel density] 1.005 1.002-1.03 0 [facility] Urine urobilinogen measureme ntOrdered By: Fazal Heller on 05-22-2025 Urobilinogen Ql (U) 8 mg/dl High Normal [facility] White blood cell (WBC) count Ordered By: Fazal Heller on 05-22-2025 WBC (Bld) [#/Vol] 7.4 10*3/uL Normal 4.4-11.0 [facility] Comment on above: Performed By: #### L 500.4050, L501.2450, L100.0100 ####[facility] [address] [place], [address] White blood cell countOrdere d By: Fazal Heller on 05-22-2025 White blood cell count 25-50 SEEN /hpf 0-5 [facility] Bedside Glucoseon 05-03-2025 FINGERSTICK GLU 136 mg/dL High 74-106 [facility] Comment on above: Result Comment: TORRES GEMENT OF PATIENT CARE PER NURSING PROTOCOL Performed By: #### L 501.080 ####[facility] [address] [place], [place], [address] [facility] deOrdered By: Alonso Marte on 05-03-2025 Glucose [Mass/Vol] 136 mg/dL High 74-106 [facility] Comment on above: MANAGEMENT OF PATIEN T CARE PER NURSING PROTOCOL Bedside Glucoseon 05-02-2025 FINGERSTICK GLU 149 mg/dL High 74-106 [facility] Comment on above: Result Comment: TORRES GEMENT OF PATIENT CARE PER NURSING PROTOCOL Performed By: #### L 501.080 ####[facility] [address] [place], [place], [address] FINGERSTICK GLU 136 mg/dL High -106 [facility] Comment on above: Result Comment: TORRES GEMENT OF PATIENT CARE PER NURSING PROTOCOL Performed By: #### L 501.080 ####[facility] [address] [place], [place], [address] Absolute lymphocyte countOrd ered By: Alonso Marte on 05-01-2025 Lymphocytes Auto (Unsp spec) [#/Vol] 1.34 10*3/uL 0.83-4.51 [facility] Absolute neutrophil countOrd ered By: Alonso Marte on 05-01-2025 Neutrophils (Bld) [#/Vol] 3.0 10*3/uL 2.0-7.7 [facility] Anion gap in Serum or Plasma Ordered By: Alonso Marte on 05-01-2025 Anion gap [Moles/Vol] 9 mmol/L 5-15 [facility] Automated lymphocyte count a s percentage of total leukocytesOrdered By: Alonso Marte on 05-01-2025 Lymphocytes/100 WBC Auto (Unsp spec) 25.5 % [facility] BUN/creatinine ratioOrdered By: Alonso Marte on 05-01-2025 Urea nitrogen/Creatinine [Mass ratio] 18.3 mg/mg - [facility] Basic Metabolic Profile (BMP )on 05-01-2025 BUN/CRE 18.3 RATIO Normal 09-10 [facility] Comment on above: Performed By: #### L 100.0100, L500.2500 ####[facility] [address] [place], [address] Calcium [Mass/Vol] 8.7 mg/dL Normal 7.6-11.0 [facility] Comment on above: Performed By: #### L 100.0100, L500.2500 ####[facility] [address] [place], [address] Chloride [Moles/Vol] 104 mmol/L Normal 98-108 [facility] Comment on above: Performed By: #### L 100.0100, L500.2500 ####[facility] [address] [place], [address] CO2 [Moles/Vol] 24.5 mmol/L Normal 21.0-32.0 [facility] Comment on above: Performed By: #### L 100.0100, L500.2500 ####[facility] [address] [place], [address] Creatinine [Mass/Vol] 0.88 mg/dL Normal 0.70-1.20 [facility] Comment on above: Performed By: #### L 100.0100, L500.2500 ####[facility] [address] [place], [address] ECRCL 55.61 ml/min Normal 50-250 [facility] Comment on above: Performed By: #### L 100.0100, L500.2500 ####[facility] [address] [place], [address] GAP 9 Normal 5-15 [facility] Comment on above: Performed By: #### L 100.0100, L500.2500 ####[facility] [address] [place], [address] GFR/1.73 sq M.predicted among non-blacks MDRD (S/P/Bld) [Vol rate/Area] 70 mL/min/{1.73_m2} Normal >60 [facility] Comment on above: Result Comment: mL/m in/1.73m2 CKD-EPI Creatinine Equation (2020) Performed By: #### L 100.0100, L500.2500 ####[facility] [address] [place], [address] Glucose [Mass/Vol] 148 mg/dL High 70-99 [facility] Comment on above: Performed By: #### L 100.0100, L500.2500 ####[facility] [address] [place], [address] Potassium [Moles/Vol] 4.1 mmol/L Normal 3.3-5.1 [facility] Comment on above: Performed By: #### L 100.0100, L500.2500 ####[facility] [address] [place], [address] Sodium [Moles/Vol] 138 mmol/L Normal 133-145 [facility] Comment on above: Performed By: #### L 100.0100, L500.2500 ####[facility] [address] [place], [address] Urea nitrogen [Mass/Vol] 16 mg/dL Normal 4-19 [facility] Comment on above: Performed By: #### L 100.0100, L500.2500 ####[facility] [address] [place], [address] Basophil percentageOrdered B y: Alonso Estuardo on 05-01-2025 Basophils/100 WBC (Bld) 0.6 % 0-1 [facility] Bedside Glucoseon 05-01-2025 FINGERSTICK GLU 231 mg/dL High 74-106 [facility] Comment on above: Result Comment: TORRES FRANKLIN OF PATIENT CARE PER NURSING PROTOCOL Performed By: #### L 501.080 ####[facility] [address] [place], [address] FINGERSTICK GLU 213 mg/dL High 74-106 [facility] Comment on above: Result Comment: TORRES GEMENT OF PATIENT CARE PER NURSING PROTOCOL Performed By: #### L 501.080 ####[facility] [address] [place], [address] FINGERSTICK GLU 136 mg/dL High 74-106 [facility] Comment on above: Result Comment: TORRES GEMENT OF PATIENT CARE PER NURSING PROTOCOL Performed By: #### L 501.080 ####[facility] [address] [place], [address] CBC W/Diff, Automatedon 04-22 0-2024 Absolute Lymph 1.34 X10 3/uL Normal 0.83-4.51 [facility] Comment on above: Performed By: #### L 100.0100, L500.2500 ####[facility] [address] [place], [address] Absolute Neut 3.0 X10 3/uL Normal 2.0-7.7 [facility] Comment on above: Performed By: #### L 100.0100, L500.2500 ####[facility] [address] [place], [address] Basophils/100 WBC (Bld) 0.6 % Normal 0-1 [facility] Comment on above: Performed By: #### L 100.0100, L500.2500 ####[facility] [address] [place], [address] Eosinophils/100 WBC (Bld) 4.0 % Normal 0-5 [facility] Comment on above: Performed By: #### L 100.0100, L500.2500 ####[facility] [address] [place], [address] Erythrocyte distribution width (RBC) [Ratio] 13.4 % Normal 11.6-14.6 [facility] Comment on above: Performed By: #### L 100.0100, L500.2500 ####[facility] [address] [place], [address] Hematocrit (Bld) [Volume fraction] 28.6 % Low 37-47 [facility] Comment on above: Performed By: #### L 100.0100, L500.2500 ####[facility] [address] [place], [address] Hemoglobin (Bld) [Mass/Vol] 9.5 g/dL Low 12.0-15.0 [facility] Comment on above: Performed By: #### L 100.0100, L500.2500 ####[facility] [address] [place], [address] IG% 0.400 Normal 0.0-0.9 [facility] Comment on above: Result Comment: IG% - Immature Granulocytes (promyelocytes, myelocytes andmetamyelocytes) > 1% indicates that a LEFT SHIFT is Present. Performed By: #### L 100.0100, L500.2500 ####[facility] [address] [place], [address] Lymphocytes/100 WBC (Bld) 25.5 % Normal 19-41 [facility] Comment on above: Performed By: #### L 100.0100, L500.2500 ####[facility] [address] [place], [address] MCH (RBC) [Entitic mass] 31.1 pg Normal 27.0-32.0 [facility] Comment on above: Performed By: #### L 100.0100, L500.2500 ####[facility] [address] [place], [address] MCHC (RBC) [Mass/Vol] 33.2 g/dL Normal 32-36 [facility] Comment on above: Performed By: #### L 100.0100, L500.2500 ####[facility] [address] [place], [address] MCV (RBC) [Entitic vol] 93.8 fL Normal 81-99 [facility] Comment on above: Performed By: #### L 100.0100, L500.2500 ####[facility] [address] [place], [address] Monocytes/100 WBC (Bld) 12.0 % High 0-10 [facility] Comment on above: Performed By: #### L 100.0100, L500.2500 ####[facility] [address] [place], [address] Neutrophils/100 WBC (Bld) 57.5 % Normal 47-70 [facility] Comment on above: Performed By: #### L 100.0100, L500.2500 ####[facility] [address] [place], [address] Nucleated RBC (Bld) [#/Vol] 0 10*3/uL Normal 0-5 [facility] Comment on above: Performed By: #### L 100.0100, L500.2500 ####[facility] [address] [place], [address] Platelet mean volume (Bld) [Entitic vol] 10.2 fL Normal 6.2-12.0 [facility] Comment on above: Performed By: #### L 100.0100, L500.2500 ####[facility] [address] [place], [address] Platelets (Bld) [#/Vol] 207 10*3/uL Normal 150-450 [facility] Comment on above: Performed By: #### L 100.0100, L500.2500 ####[facility] [address] [place], [address] RBC (Bld) [#/Vol] 3.05 10*6/uL Low 4.2-5.4 [facility] Comment on above: Performed By: #### L 100.0100, L500.2500 ####[facility] [address] [place], [address] RDW SD 45.9 fl High 35.1-43.9 [facility] Comment on above: Performed By: #### L 100.0100, L500.2500 ####[facility] [address] [place], [address] WBC (Bld) [#/Vol] 5.3 10*3/uL Normal 4.4-11.0 [facility] Comment on above: Performed By: #### L 100.0100, L500.2500 ####[facility] [address] [place], [address] Carbon dioxide, total [Moles /volume] in Central venous bloodOrdered By: Alonso Marte on 05-01-2025 CO2 [Moles/Vol] 24.5 mmol/L 21.0-32.0 [facility] Chloride assayOrdered By: Rm Marte on 05-01-2025 Chloride [Moles/Vol] 104 mmol/L 98-108 [facility] Eosinophil percentageOrdered By: Alonso Marte on 05-01-2025 Eosinophils/100 WBC (Bld) 4.0 % 0-5 [facility] Erythrocyte distribution wid th ratioOrdered By: Alonso Marte on 05-01-2025 Erythrocyte distribution width (RBC) [Ratio] 13.4 % 11.6-14.6 [facility] Erythrocyte distribution wid th standard deviationOrdered By: Alonso Marte on 05-01-2025 Erythrocyte distribution width (RBC) [Ratio] 45.9 fl High 35.1-43.9 [facility] Glomerular filtration rate ( GFR) estimation/1.73 sq m using serum, plasma, or whole bOrdered By: Alonso Marte on 05-01-2025 GFR/1.73 sq M.predicted among non-blacks MDRD (S/P/Bld) [Vol rate/Area] 70 mL/min/{1.73_m2} >60 [facility] Comment on above: mL/min/1.73m2 CKD-EP I Creatinine Equation (2020) Hematocrit Auto (Bld) [Volum e fraction]Ordered By: Alonso Marte on 05-01-2025 Hematocrit (Bld) [Volume fraction] 28.6 % Low 37-47 [facility] Hemoglobin measurementOrdere d By: Alonso Marte on 05-01-2025 Hemoglobin (Bld) [Mass/Vol] 9.5 g/dL Low 12.0-15.0 [facility] Immature granulocytes/100 WB C Auto (Bld)Ordered By: Alonso Marte 05-01-2025 Immature granulocytes/100 WBC (Bld) 0.400 % 0.0-0.9 [facility] Comment on above: IG% - Immature Granu locytes (promyelocytes, myelocytes and metamyelocytes) > 1% indicates that a LEFT SHIFT is Present. MCV (mean corpuscular volume ) determinationOrdered By: Alonso Marte 05-01-2025 MCV (RBC) [Entitic vol] 93.8 fL 81-99 [facility] Mean corpuscular hemoglobin (MCH) determinationOrdered By: Alonso Marte 05-01-2025 MCH (RBC) [Entitic mass] 31.1 pg 27.0-32.0 [facility] Mean corpuscular hemoglobin concentration (MCHC) determinationOrdered By: Alonso Marte 05-01-2025 MCHC (RBC) [Mass/Vol] 33.2 g/dL 32-36 [facility] Mean platelet volume determi nationOrdered By: Alonso Marte 05-01-2025 Platelet mean volume (Bld) [Entitic vol] 10.2 fL 6.2-12.0 [facility] Monocyte percentageOrdered B y: Alonso Marte on 05-01-2025 Monocytes/100 WBC (Bld) 12.0 % High 0-10 [facility] Neutrophil percentageOrdered By: Alonso Marte 05-01-2025 Neutrophils/100 WBC (Bld) 57.5 % 47-70 [facility] Nucleated red blood cell per centageOrdered By: Alonso Marte 05-01-2025 Nucleated RBC/100 WBC (Bld) [Ratio] 0 % 0-5 [facility] Platelet countOrdered By: Rm Marte on 05-01-2025 Platelets (Bld) [#/Vol] 207 10*3/uL 150-450 [facility] Potassium measurement (mass/ volume)Ordered By: Alonso Marte on 05-01-2025 Potassium (Unsp spec) [Mass/Vol] 4.1 mmol/L 3.3-5.1 [facility] RBC Auto (Bld) [#/Vol]Ordere d By: Alonso Marte on 05-01-2025 RBC (Bld) [#/Vol] 3.05 10*6/uL Low 4.2-5.4 [facility] Serum creatinine measurement (mass/volume)Ordered By: Alonso Marte on 05-01-2025 Creatinine [Mass/Vol] 0.88 mg/dL 0.70-1.20 [facility] Serum glucose measurement (m ass/volume)Ordered By: Alonso Marte on 05-01-2025 Glucose [Mass/Vol] 148 mg/dL High 70-99 [facility] Serum or plasma calcium loco urement (mass/volume)Ordered By: Alonso Marte on 05-01-2025 Calcium [Mass/Vol] 8.7 mg/dL 7.6-11.0 [facility] Serum or plasma urea nitroge n measurement (mass/volume)Ordered By: Alonso Marte on 05-01-2025 Urea nitrogen [Mass/Vol] 16 mg/dL 4-19 [facility] Sodium levelOrdered By: Alonso Marte on 05-01-2025 Sodium [Moles/Vol] 138 mmol/L 133-145 [facility] White blood cell (WBC) count Ordered By: Alonso Marte on 05-01-2025 WBC (Bld) [#/Vol] 5.3 10*3/uL 4.4-11.0 [facility] Basic Metabolic Profile (BMP )on 04-30-2025 BUN/CRE 16.8 RATIO Normal 10-20 [facility] Comment on above: Performed By: #### L 500.2500, L100.0100 ####[facility] [address] [place], [address] Calcium [Mass/Vol] 8.7 mg/dL Normal 7.6-11.0 [facility] Comment on above: Performed By: #### L 500.2500, L100.0100 ####[facility] [address] [place], [address] Chloride [Moles/Vol] 105 mmol/L Normal 98-108 [facility] Comment on above: Performed By: #### L 500.2500, L100.0100 ####[facility] [address] [place], [address] CO2 [Moles/Vol] 25.1 mmol/L Normal 21.0-32.0 [facility] Comment on above: Performed By: #### L 500.2500, L100.0100 ####[facility] [address] [place], [address] Creatinine [Mass/Vol] 0.94 mg/dL Normal 0.70-1.20 [facility] Comment on above: Performed By: #### L 500.2500, L100.0100 ####[facility] [address] [place], [address] ECRCL 52.06 ml/min Normal 50-250 [facility] Comment on above: Performed By: #### L 500.2500, L100.0100 ####[facility] [address] [place], [address] GAP 9 Normal 5-15 [facility] Comment on above: Performed By: #### L 500.2500, L100.0100 ####[facility] [address] [place], [address] GFR/1.73 sq M.predicted among non-blacks MDRD (S/P/Bld) [Vol rate/Area] 65 mL/min/{1.73_m2} Normal >60 [facility] Comment on above: Result Comment: mL/m in/1.73m2 CKD-EPI Creatinine Equation (2020) Performed By: #### L 500.2500, L100.0100 ####[facility] [address] [place], [address] Glucose [Mass/Vol] 142 mg/dL High 70-99 [facility] Comment on above: Performed By: #### L 500.2500, L100.0100 ####[facility] [address] [place], [address] Potassium [Moles/Vol] 4.1 mmol/L Normal 3.3-5.1 [facility] Comment on above: Result Comment: Hemo lysis present, Results??could be affected.?? Performed By: #### L 500.2500, L100.0100 ####[facility] [address] [place], [address] Sodium [Moles/Vol] 139 mmol/L Normal 133-145 [facility] Comment on above: Performed By: #### L 500.2500, L100.0100 ####[facility] [address] [place], [address] Urea nitrogen [Mass/Vol] 16 mg/dL Normal 4-19 [facility] Comment on above: Performed By: #### L 500.2500, L100.0100 ####[facility] [address] [place], [address] Bedside Glucoseon 04-30-2025 FINGERSTICK GLU 188 mg/dL High 74-106 [facility] Comment on above: Result Comment: TORRES GEMENT OF PATIENT CARE PER NURSING PROTOCOL Performed By: #### L 501.080 ####[facility] [address] [place], [address] FINGERSTICK GLU 132 mg/dL High 74-106 [facility] Comment on above: Result Comment: TORRES GEMENT OF PATIENT CARE PER NURSING PROTOCOL Performed By: #### L 501.080 ####[facility] [address] [place], [address] CBC W/Diff, Automatedon 06-0 -2024 Absolute Lymph 1.82 X10 3/uL Normal 0.83-4.51 [facility] Comment on above: Performed By: #### L 500.2500, L100.0100 ####[facility] [address] [place], [address] Absolute Neut 3.6 X10 3/uL Normal 2.0-7.7 [facility] Comment on above: Performed By: #### L 500.2500, L100.0100 ####[facility] [address] [place], [address] Basophils/100 WBC (Bld) 0.5 % Normal 0-1 [facility] Comment on above: Performed By: #### L 500.2500, L100.0100 ####[facility] [address] [place], [address] Eosinophils/100 WBC (Bld) 4.4 % Normal 0-5 [facility] Comment on above: Performed By: #### L 500.2500, L100.0100 ####[facility] [address] [place], [address] Erythrocyte distribution width (RBC) [Ratio] 13.3 % Normal 11.6-14.6 [facility] Comment on above: Performed By: #### L 500.2500, L100.0100 ####[facility] [address] [place], [address] Hematocrit (Bld) [Volume fraction] 29.9 % Low 37-47 [facility] Comment on above: Performed By: #### L 500.2500, L100.0100 ####[facility] [address] [place], [address] Hemoglobin (Bld) [Mass/Vol] 9.8 g/dL Low 12.0-15.0 [facility] Comment on above: Performed By: #### L 500.2500, L100.0100 ####[facility] [address] [place], [address] IG% 0.500 Normal 0.0-0.9 [facility] Comment on above: Result Comment: IG% - Immature Granulocytes (promyelocytes, myelocytes andmetamyelocytes) > 1% indicates that a LEFT SHIFT is Present. Performed By: #### L 500.2500, L100.0100 ####[facility] [address] [place], [address] Lymphocytes/100 WBC (Bld) 28.3 % Normal 19-41 [facility] Comment on above: Performed By: #### L 500.2500, L100.0100 ####[facility] [address] [place], [address] MCH (RBC) [Entitic mass] 31.0 pg Normal 27.0-32.0 [facility] Comment on above: Performed By: #### L 500.2500, L100.0100 ####[facility] [address] [place], [address] MCHC (RBC) [Mass/Vol] 32.8 g/dL Normal 32-36 [facility] Comment on above: Performed By: #### L 500.2500, L100.0100 ####[facility] [address] [place], [address] MCV (RBC) [Entitic vol] 94.6 fL Normal 81-99 [facility] Comment on above: Performed By: #### L 500.2500, L100.0100 ####[facility] [address] [place], [address] Monocytes/100 WBC (Bld) 10.9 % High 0-10 [facility] Comment on above: Performed By: #### L 500.2500, L100.0100 ####[facility] [address] [place], [address] Neutrophils/100 WBC (Bld) 55.4 % Normal 47-70 [facility] Comment on above: Performed By: #### L 500.2500, L100.0100 ####[facility] [address] [place], [address] Nucleated RBC (Bld) [#/Vol] 0 10*3/uL Normal 0-5 [facility] Comment on above: Performed By: #### L 500.2500, L100.0100 ####[facility] [address] [place], [address] Platelet mean volume (Bld) [Entitic vol] 10.4 fL Normal 6.2-12.0 [facility] Comment on above: Performed By: #### L 500.2500, L100.0100 ####[facility] [address] [place], [address] Platelets (Bld) [#/Vol] 212 10*3/uL Normal 150-450 [facility] Comment on above: Performed By: #### L 500.2500, L100.0100 ####[facility] [address] [place], [address] RBC (Bld) [#/Vol] 3.16 10*6/uL Low 4.2-5.4 [facility] Comment on above: Performed By: #### L 500.2500, L100.0100 ####[facility] [address] [place], [address] RDW SD 46.4 fl High 35.1-43.9 [facility] Comment on above: Performed By: #### L 500.2500, L100.0100 ####[facility] [address] [place], [address] WBC (Bld) [#/Vol] 6.4 10*3/uL Normal 4.4-11.0 [facility] Comment on above: Performed By: #### L 500.2500, L100.0100 ####[facility] [address] [place], [address] Basic Metabolic Profile (BMP )on 04-29-2025 BUN/CRE 15.0 RATIO Normal 10-20 [facility] Comment on above: Performed By: #### L 500.2500, L100.0100 ####[facility] [address] [place], [address] Calcium [Mass/Vol] 8.8 mg/dL Normal 7.6-11.0 [facility] Comment on above: Performed By: #### L 500.2500, L100.0100 ####[facility] [address] [place], [address] Chloride [Moles/Vol] 108 mmol/L Normal 98-108 [facility] Comment on above: Performed By: #### L 500.2500, L100.0100 ####[facility] [address] [place], [address] CO2 [Moles/Vol] 26.7 mmol/L Normal 21.0-32.0 [facility] Comment on above: Performed By: #### L 500.2500, L100.0100 ####[facility] [address] [place], [address] Creatinine [Mass/Vol] 0.94 mg/dL Normal 0.70-1.20 [facility] Comment on above: Performed By: #### L 500.2500, L100.0100 ####[facility] [address] [place], [address] ECRCL 52.06 ml/min Normal 50-250 [facility] Comment on above: Performed By: #### L 500.2500, L100.0100 ####[facility] [address] [place], [address] GAP 7 Normal 5-15 [facility] Comment on above: Performed By: #### L 500.2500, L100.0100 ####[facility] [address] [place], [address] GFR/1.73 sq M.predicted among non-blacks MDRD (S/P/Bld) [Vol rate/Area] 64 mL/min/{1.73_m2} Normal >60 [facility] Comment on above: Result Comment: mL/m in/1.73m2 CKD-EPI Creatinine Equation (2020) Performed By: #### L 500.2500, L100.0100 ####[facility] [address] [place], [address] Glucose [Mass/Vol] 138 mg/dL High 70-99 [facility] Comment on above: Performed By: #### L 500.2500, L100.0100 ####[facility] [address] [place], [address] Potassium [Moles/Vol] 4.4 mmol/L Normal 3.3-5.1 [facility] Comment on above: Performed By: #### L 500.2500, L100.0100 ####[facility] [address] [place], [address] Sodium [Moles/Vol] 142 mmol/L Normal 133-145 [facility] Comment on above: Performed By: #### L 500.2500, L100.0100 ####[facility] [address] [place], [address] Urea nitrogen [Mass/Vol] 14 mg/dL Normal 4-19 [facility] Comment on above: Performed By: #### L 500.2500, L100.0100 ####[facility] [address] [place], [address] Bedside Glucoseon 04-29-2025 FINGERSTICK GLU 132 mg/dL High 74-106 [facility] Comment on above: Result Comment: TORRES FRANKLIN OF PATIENT CARE PER NURSING PROTOCOL Performed By: #### L 501.080 ####[facility] [address] [place], [address] CBC W/Diff, Automatedon Absolute Lymph 1.45 X10 3/uL Normal 0.83-4.51 [facility] Comment on above: Performed By: #### L 500.2500, L100.0100 ####[facility] [address] [place], [address] Absolute Neut 3.3 X10 3/uL Normal 2.0-7.7 [facility] Comment on above: Performed By: #### L 500.2500, L100.0100 ####[facility] [address] [place], [address] Basophils/100 WBC (Bld) 0.5 % Normal 0-1 [facility] Comment on above: Performed By: #### L 500.2500, L100.0100 ####[facility] [address] [place], [address] Eosinophils/100 WBC (Bld) 4.5 % Normal 0-5 [facility] Comment on above: Performed By: #### L 500.2500, L100.0100 ####[facility] [address] [place], [address] Erythrocyte distribution width (RBC) [Ratio] 13.5 % Normal 11.6-14.6 [facility] Comment on above: Performed By: #### L 500.2500, L100.0100 ####[facility] [address] [place], [address] Hematocrit (Bld) [Volume fraction] 28.7 % Low 37-47 [facility] Comment on above: Performed By: #### L 500.2500, L100.0100 ####[facility] [address] [place], [address] Hemoglobin (Bld) [Mass/Vol] 9.5 g/dL Low 12.0-15.0 [facility] Comment on above: Performed By: #### L 500.2500, L100.0100 ####[facility] [address] [place], [address] IG% 0.300 Normal 0.0-0.9 [facility] Comment on above: Result Comment: IG% - Immature Granulocytes (promyelocytes, myelocytes andmetamyelocytes) > 1% indicates that a LEFT SHIFT is Present. Performed By: #### L 500.2500, L100.0100 ####[facility] [address] [place], [address] Lymphocytes/100 WBC (Bld) 25.3 % Normal 19-41 [facility] Comment on above: Performed By: #### L 500.2500, L100.0100 ####[facility] [address] [place], [address] MCH (RBC) [Entitic mass] 31.5 pg Normal 27.0-32.0 [facility] Comment on above: Performed By: #### L 500.2500, L100.0100 ####[facility] [address] [place], [address] MCHC (RBC) [Mass/Vol] 33.1 g/dL Normal 32-36 [facility] Comment on above: Performed By: #### L 500.2500, L100.0100 ####[facility] [address] [place], [address] MCV (RBC) [Entitic vol] 95.0 fL Normal 81-99 [facility] Comment on above: Performed By: #### L 500.2500, L100.0100 ####[facility] [address] [place], [address] Monocytes/100 WBC (Bld) 11.2 % High 0-10 [facility] Comment on above: Performed By: #### L 500.2500, L100.0100 ####[facility] [address] [place], [address] Neutrophils/100 WBC (Bld) 58.2 % Normal 47-70 [facility] Comment on above: Performed By: #### L 500.2500, L100.0100 ####[facility] [address] [place], [address] Nucleated RBC (Bld) [#/Vol] 0 10*3/uL Normal 0-5 [facility] Comment on above: Performed By: #### L 500.2500, L100.0100 ####[facility] [address] [place], [address] Platelet mean volume (Bld) [Entitic vol] 9.9 fL Normal 6.2-12.0 [facility] Comment on above: Performed By: #### L 500.2500, L100.0100 ####[facility] [address] [place], [address] Platelets (Bld) [#/Vol] 193 10*3/uL Normal 150-450 [facility] Comment on above: Performed By: #### L 500.2500, L100.0100 ####[facility] [address] [place], [address] RBC (Bld) [#/Vol] 3.02 10*6/uL Low 4.2-5.4 [facility] Comment on above: Performed By: #### L 500.2500, L100.0100 ####[facility] [address] [place], [address] RDW SD 46.9 fl High 35.1-43.9 [facility] Comment on above: Performed By: #### L 500.2500, L100.0100 ####[facility] [address] [place], [address] WBC (Bld) [#/Vol] 5.7 10*3/uL Normal 4.4-11.0 [facility] Comment on above: Performed By: #### L 500.2500, L100.0100 ####[facility] [address] [place], [address] Basic Metabolic Profile (BMP )on 04-28-2025 BUN/CRE 15.9 RATIO Normal 10-20 [facility] Comment on above: Performed By: #### L 100.0100, L500.2500 ####[facility] [address] [place], [address] Calcium [Mass/Vol] 8.7 mg/dL Normal 7.6-11.0 [facility] Comment on above: Performed By: #### L 100.0100, L500.2500 ####[facility] [address] [place], [address] Chloride [Moles/Vol] 105 mmol/L Normal 98-108 [facility] Comment on above: Performed By: #### L 100.0100, L500.2500 ####[facility] [address] [place], [address] CO2 [Moles/Vol] 25.9 mmol/L Normal 21.0-32.0 [facility] Comment on above: Performed By: #### L 100.0100, L500.2500 ####[facility] [address] [place], [address] Creatinine [Mass/Vol] 0.97 mg/dL Normal 0.70-1.20 [facility] Comment on above: Performed By: #### L 100.0100, L500.2500 ####[facility] [address] [place], [address] ECRCL 50.45 ml/min Normal 50-250 [facility] Comment on above: Performed By: #### L 100.0100, L500.2500 ####[facility] [address] [place], [address] GAP 9 Normal 5-15 [facility] Comment on above: Performed By: #### L 100.0100, L500.2500 ####[facility] [address] [place], [address] GFR/1.73 sq M.predicted among non-blacks MDRD (S/P/Bld) [Vol rate/Area] 62 mL/min/{1.73_m2} Normal >60 [facility] Comment on above: Result Comment: mL/m in/1.73m2 CKD-EPI Creatinine Equation (2020) Performed By: #### L 100.0100, L500.2500 ####[facility] [address] [place], [address] Glucose [Mass/Vol] 140 mg/dL High 70-99 [facility] Comment on above: Performed By: #### L 100.0100, L500.2500 ####[facility] [address] [place], [address] Potassium [Moles/Vol] 3.8 mmol/L Normal 3.3-5.1 [facility] Comment on above: Performed By: #### L 100.0100, L500.2500 ####[facility] [address] [place], [address] Sodium [Moles/Vol] 140 mmol/L Normal 133-145 [facility] Comment on above: Performed By: #### L 100.0100, L500.2500 ####[facility] [address] [place], [address] Urea nitrogen [Mass/Vol] 15 mg/dL Normal 4-19 [facility] Comment on above: Performed By: #### L 100.0100, L500.2500 ####[facility] [address] [place], [address] Bedside Glucoseon --2024 FINGERSTICK GLU 155 mg/dL High 74-106 [facility] Comment on above: Result Comment: TORRES GEMENT OF PATIENT CARE PER NURSING PROTOCOL Performed By: #### L 501.080 ####[facility] [address] [place], [address] FINGERSTICK GLU 120 mg/dL High 74-106 [facility] Comment on above: Result Comment: TORRES GEMENT OF PATIENT CARE PER NURSING PROTOCOL Performed By: #### L 501.080 ####[facility] [address] [place], [address] CBC W/Diff, Automatedon 06-0 Absolute Lymph 1.57 X10 3/uL Normal 0.83-4.51 [facility] Comment on above: Performed By: #### L 100.0100, L500.2500 ####[facility] [address] [place], [address] Absolute Neut 3.1 X10 3/uL Normal 2.0-7.7 [facility] Comment on above: Performed By: #### L 100.0100, L500.2500 ####[facility] [address] [place], [address] Basophils/100 WBC (Bld) 0.5 % Normal 0-1 [facility] Comment on above: Performed By: #### L 100.0100, L500.2500 ####[facility] [address] [place], [address] Eosinophils/100 WBC (Bld) 3.7 % Normal 0-5 [facility] Comment on above: Performed By: #### L 100.0100, L500.2500 ####[facility] [address] [place], [address] Erythrocyte distribution width (RBC) [Ratio] 13.3 % Normal 11.6-14.6 [facility] Comment on above: Performed By: #### L 100.0100, L500.2500 ####[facility] [address] [place], [address] Hematocrit (Bld) [Volume fraction] 27.9 % Low 37-47 [facility] Comment on above: Performed By: #### L 100.0100, L500.2500 ####[facility] [address] [place], [address] Hemoglobin (Bld) [Mass/Vol] 9.1 g/dL Low 12.0-15.0 [facility] Comment on above: Performed By: #### L 100.0100, L500.2500 ####[facility] [address] [place], [address] IG% 0.200 Normal 0.0-0.9 [facility] Comment on above: Result Comment: IG% - Immature Granulocytes (promyelocytes, myelocytes andmetamyelocytes) > 1% indicates that a LEFT SHIFT is Present. Performed By: #### L 100.0100, L500.2500 ####[facility] [address] [place], [address] Lymphocytes/100 WBC (Bld) 28.7 % Normal 19-41 [facility] Comment on above: Performed By: #### L 100.0100, L500.2500 ####[facility] [address] [place], [address] MCH (RBC) [Entitic mass] 30.8 pg Normal 27.0-32.0 [facility] Comment on above: Performed By: #### L 100.0100, L500.2500 ####[facility] [address] [place], [address] MCHC (RBC) [Mass/Vol] 32.6 g/dL Normal 32-36 [facility] Comment on above: Performed By: #### L 100.0100, L500.2500 ####[facility] [address] [place], [address] MCV (RBC) [Entitic vol] 94.6 fL Normal 81-99 [facility] Comment on above: Performed By: #### L 100.0100, L500.2500 ####[facility] [address] [place], [address] Monocytes/100 WBC (Bld) 10.1 % High 0-10 [facility] Comment on above: Performed By: #### L 100.0100, L500.2500 ####[facility] [address] [place], [address] Neutrophils/100 WBC (Bld) 56.8 % Normal 47-70 [facility] Comment on above: Performed By: #### L 100.0100, L500.2500 ####[facility] [address] [place], [address] Nucleated RBC (Bld) [#/Vol] 0 10*3/uL Normal 0-5 [facility] Comment on above: Performed By: #### L 100.0100, L500.2500 ####[facility] [address] [place], [address] Platelet mean volume (Bld) [Entitic vol] 10.3 fL Normal 6.2-12.0 [facility] Comment on above: Performed By: #### L 100.0100, L500.2500 ####[facility] [address] [place], [address] Platelets (Bld) [#/Vol] 199 10*3/uL Normal 150-450 [facility] Comment on above: Performed By: #### L 100.0100, L500.2500 ####[facility] [address] [place], [address] RBC (Bld) [#/Vol] 2.95 10*6/uL Low 4.2-5.4 [facility] Comment on above: Performed By: #### L 100.0100, L500.2500 ####[facility] [address] [place], [address] RDW SD 45.7 fl High 35.1-43.9 [facility] Comment on above: Performed By: #### L 100.0100, L500.2500 ####[facility] [address] [place], [address] WBC (Bld) [#/Vol] 5.5 10*3/uL Normal 4.4-11.0 [facility] Comment on above: Performed By: #### L 100.0100, L500.2500 ####[facility] [address] [place], [address] Basic Metabolic Profile (BMP )on 04-27-2025 BUN/CRE 12.8 RATIO Normal 10-20 [facility] Comment on above: Performed By: #### L 500.2500, L100.0100 ####[facility] [address] [place], [address] Calcium [Mass/Vol] 8.7 mg/dL Normal 7.6-11.0 [facility] Comment on above: Performed By: #### L 500.2500, L100.0100 ####[facility] [address] [place], [address] Chloride [Moles/Vol] 107 mmol/L Normal 98-108 [facility] Comment on above: Performed By: #### L 500.2500, L100.0100 ####[facility] [address] [place], [address] CO2 [Moles/Vol] 25.1 mmol/L Normal 21.0-32.0 [facility] Comment on above: Performed By: #### L 500.2500, L100.0100 ####[facility] [address] [place], [address] Creatinine [Mass/Vol] 0.95 mg/dL Normal 0.70-1.20 [facility] Comment on above: Performed By: #### L 500.2500, L100.0100 ####[facility] [address] [place], [address] ECRCL 51.52 ml/min Normal 50-250 [facility] Comment on above: Performed By: #### L 500.2500, L100.0100 ####[facility] [address] [place], [address] GAP 9 Normal 5-15 [facility] Comment on above: Performed By: #### L 500.2500, L100.0100 ####[facility] [address] [place], [address] GFR/1.73 sq M.predicted among non-blacks MDRD (S/P/Bld) [Vol rate/Area] 63 mL/min/{1.73_m2} Normal >60 [facility] Comment on above: Result Comment: mL/m in/1.73m2 CKD-EPI Creatinine Equation (2020) Performed By: #### L 500.2500, L100.0100 ####[facility] [address] [place], [address] Glucose [Mass/Vol] 139 mg/dL High 70-99 [facility] Comment on above: Performed By: #### L 500.2500, L100.0100 ####[facility] [address] [place], [address] Potassium [Moles/Vol] 3.9 mmol/L Normal 3.3-5.1 [facility] Comment on above: Performed By: #### L 500.2500, L100.0100 ####[facility] [address] [place], [address] Sodium [Moles/Vol] 141 mmol/L Normal 133-145 [facility] Comment on above: Performed By: #### L 500.2500, L100.0100 ####[facility] [address] [place], [address] Urea nitrogen [Mass/Vol] 12 mg/dL Normal 4-19 [facility] Comment on above: Performed By: #### L 500.2500, L100.0100 ####[facility] [address] [place], [address] Bedside Glucoseon - FINGERSTICK GLU 134 mg/dL High 74-106 [facility] Comment on above: Result Comment: TORRES GEMENT OF PATIENT CARE PER NURSING PROTOCOL Performed By: #### L 501.080 ####[facility] [address] [place], [address] FINGERSTICK GLU 158 mg/dL High 74-106 [facility] Comment on above: Result Comment: TORRES GEMENT OF PATIENT CARE PER NURSING PROTOCOL Performed By: #### L 501.080 ####[facility] [address] [place], [address] CBC W/Diff, Automatedon 06-0 Absolute Lymph 1.65 X10 3/uL Normal 0.83-4.51 [facility] Comment on above: Performed By: #### L 500.2500, L100.0100 ####[facility] [address] [place], [address] Absolute Neut 2.8 X10 3/uL Normal 2.0-7.7 [facility] Comment on above: Performed By: #### L 500.2500, L100.0100 ####[facility] [address] [place], [address] Basophils/100 WBC (Bld) 0.4 % Normal 0-1 [facility] Comment on above: Performed By: #### L 500.2500, L100.0100 ####[facility] [address] [place], [address] Eosinophils/100 WBC (Bld) 3.2 % Normal 0-5 [facility] Comment on above: Performed By: #### L 500.2500, L100.0100 ####[facility] [address] [place], [address] Erythrocyte distribution width (RBC) [Ratio] 13.4 % Normal 11.6-14.6 [facility] Comment on above: Performed By: #### L 500.2500, L100.0100 ####[facility] [address] [place], [address] Hematocrit (Bld) [Volume fraction] 27.8 % Low 37-47 [facility] Comment on above: Performed By: #### L 500.2500, L100.0100 ####[facility] [address] [place], [address] Hemoglobin (Bld) [Mass/Vol] 9.0 g/dL Low 12.0-15.0 [facility] Comment on above: Performed By: #### L 500.2500, L100.0100 ####[facility] [address] [place], [address] IG% 0.400 Normal 0.0-0.9 [facility] Comment on above: Result Comment: IG% - Immature Granulocytes (promyelocytes, myelocytes andmetamyelocytes) > 1% indicates that a LEFT SHIFT is Present. Performed By: #### L 500.2500, L100.0100 ####[facility] [address] [place], [address] Lymphocytes/100 WBC (Bld) 31.1 % Normal 19-41 [facility] Comment on above: Performed By: #### L 500.2500, L100.0100 ####[facility] [address] [place], [address] MCH (RBC) [Entitic mass] 30.8 pg Normal 27.0-32.0 [facility] Comment on above: Performed By: #### L 500.2500, L100.0100 ####[facility] [address] [place], [address] MCHC (RBC) [Mass/Vol] 32.4 g/dL Normal 32-36 [facility] Comment on above: Performed By: #### L 500.2500, L100.0100 ####[facility] [address] [place], [address] MCV (RBC) [Entitic vol] 95.2 fL Normal 81-99 [facility] Comment on above: Performed By: #### L 500.2500, L100.0100 ####[facility] [address] [place], [address] Monocytes/100 WBC (Bld) 12.2 % High 0-10 [facility] Comment on above: Performed By: #### L 500.2500, L100.0100 ####[facility] [address] [place], [address] Neutrophils/100 WBC (Bld) 52.7 % Normal 47-70 [facility] Comment on above: Performed By: #### L 500.2500, L100.0100 ####[facility] [address] [place], [address] Nucleated RBC (Bld) [#/Vol] 0 10*3/uL Normal 0-5 [facility] Comment on above: Performed By: #### L 500.2500, L100.0100 ####[facility] [address] [place], [address] Platelet mean volume (Bld) [Entitic vol] 9.9 fL Normal 6.2-12.0 [facility] Comment on above: Performed By: #### L 500.2500, L100.0100 ####[facility] [address] [place], [address] Platelets (Bld) [#/Vol] 202 10*3/uL Normal 150-450 [facility] Comment on above: Performed By: #### L 500.2500, L100.0100 ####[facility] [address] [place], [address] RBC (Bld) [#/Vol] 2.92 10*6/uL Low 4.2-5.4 [facility] Comment on above: Performed By: #### L 500.2500, L100.0100 ####[facility] [address] [place], [address] RDW SD 46.8 fl High 35.1-43.9 [facility] Comment on above: Performed By: #### L 500.2500, L100.0100 ####[facility] [address] [place], [address] WBC (Bld) [#/Vol] 5.3 10*3/uL Normal 4.4-11.0 [facility] Comment on above: Performed By: #### L 500.2500, L100.0100 ####[facility] [address] [place], [address] Bedside Glucoseon 04-26-2025 FINGERSTICK GLU 163 mg/dL High 74-106 [facility] Comment on above: Result Comment: TORRES FRANLKIN OF PATIENT CARE PER NURSING PROTOCOL Performed By: #### L 501.080 ####[facility] [address] [place], [address] FINGERSTICK GLU 147 mg/dL High 74-106 [facility] Comment on above: Result Comment: TORRES GEMENT OF PATIENT CARE PER NURSING PROTOCOL Performed By: #### L 501.080 ####[facility] [address] [place], [address] Bedside Glucoseon 04-25-2025 FINGERSTICK GLU 200 mg/dL High 74-106 [facility] Comment on above: Result Comment: TORRES GEMENT OF PATIENT CARE PER NURSING PROTOCOL Performed By: #### L 501.080 ####[facility] [address] [place], [address] FINGERSTICK GLU 225 mg/dL High 74-106 [facility] Comment on above: Result Comment: TORRES GEMENT OF PATIENT CARE PER NURSING PROTOCOL Performed By: #### L 501.080 ####[facility] [address] [place], [address] Colonoscopy Reporton 025 Colonoscopy Report Normal [facility] EGD Reporton 04-25-2025 EGD Report Normal [facility] deOrdered By: Alonso Marte on 04-25-2025 Glucose [Mass/Vol] 200 mg/dL High 74-106 [facility] Glucose measurement at [facility] deOrdered By: Shan Lockett on 04-25-2025 Glucose [Mass/Vol] 225 mg/dL High 74-106 [facility] Comment on above: MANAGEMENT OF PATIEN T CARE PER NURSING PROTOCOL MR/POSTOP.ANEon 04-25-2025 MR/POSTOP.ANE Normal [facility] MR/ECINLBUO9xu 04-25-2025 MR/POSTOPAN2 Normal [facility] Surgery Specimen Level Macrina 04-25-2025 Surgery Specimen Level IV Normal [facility] Comment on above: Performed By: #### P SUIV ####[facility] [address] [place], [address] Bedside Glucoseon 04-24-2025 FINGERSTICK GLU 128 mg/dL High 74-106 [facility] Comment on above: Result Comment: TORRES GEMENT OF PATIENT CARE PER NURSING PROTOCOL Performed By: #### L 501.080 ####[facility] [address] [place], [address] FINGERSTICK GLU 142 mg/dL High [address] [place] [address] Comment on above: Result Comment: TORRES GEMENT OF PATIENT CARE PER NURSING PROTOCOL Performed By: #### L 501.080 ####[facility] [address] [place], [address] Bedside Glucoseon 04-23-2025 FINGERSTICK GLU 166 mg/dL High [address] [place] [address] Comment on above: Result Comment: TORRES GEMENT OF PATIENT CARE PER NURSING PROTOCOL Performed By: #### L 501.080 ####[facility] [address] [place], [address] FINGERSTICK GLU 197 mg/dL High [address] [place] [address] Comment on above: Result Comment: TORRES GEMENT OF PATIENT CARE PER NURSING PROTOCOL Performed By: #### L 501.080 ####[facility] [address] [place], [address] MR/PAT.ANEon 04-23-2025 MR/PAT.ANE Normal [facility] Bedside Glucoseon 04-22-2025 FINGERSTICK GLU 191 mg/dL High [address] [place] [address] Comment on above: Result Comment: TORRES GEMENT OF PATIENT CARE PER NURSING PROTOCOL Performed By: #### L 501.080 ####[facility] [address] [place], [address] FINGERSTICK GLU 170 mg/dL High [address] [place] [address] Comment on above: Result Comment: TORRES GEMENT OF PATIENT CARE PER NURSING PROTOCOL Performed By: #### L 501.080 ####[facility] [address] [place], [address] Calculated very low density lipoprotein (VLDL) cholesterol measurementOrdered By: Alonso Marte on 04-22-2025 Calculated very low density lipoprotein (VLDL) cholesterol measurement 33 mg/dL 5-40 [facility] Hemoglobin A1con 04-22-2025 HbA1c (Bld) [Mass fraction] 7.6 % High <=5.6 [facility] Comment on above: Result Comment: Norm al < 5.7 % Prediabetic 5.7 - 6.4 % Diabetic >or= 6.5 % Please note range changes. Performed By: #### L 500.4100, L501.9985 ####[facility] [address] [place], [place], [address] Hemoglobin A1c percentageOrd ered By: Alonso Marte on 04-22-2025 HbA1c (Bld) [Mass fraction] 7.6 % High <5.7 [facility] Comment on above: Normal < 5.7 % Predi abetic 5.7 - 6.4 % Diabetic >or= 6.5 % Please note range changes. LDL calc ser/plasOrdered By: Alonso Marte on 04-22-2025 Cholesterol in LDL [Mass/Vol] 31 mg/dL [facility] Comment on above: Jckaexgmsw=793-114 m g/dL & Higher Hdhm=379 mg/dL or greater Lipid Profileon 04-22-2025 CHOL:HDL 3.76 Normal [facility] Comment on above: Performed By: #### L 500.4100, L501.9985 ####[facility] [address] [place], [place], [address] Cholesterol [Mass/Vol] 88 mg/dL Normal <=200 [facility] Comment on above: Result Comment: Chol esterol level, Desirable <200 mg/dLBorderline high cholesterol 200-239 mg/dLHigh cholesterol >=240 mg/dLRecommendations of the NCEP Adult Treatment Panel for thefollowing risk-cutoff thresholds for the [place] Americanpopulation. Performed By: #### L 500.4100, L501.9985 ####[facility] [address] [place], [place], [address] Cholesterol in HDL [Mass/Vol] 23 mg/dL Low [facility] Comment on above: Result Comment: Betsy onpeter Cholesterol Education Program (NCEP) guidelines:<40 mg/dL: Low HDL-cholesterol (major risk factor for CHD)>= 60 mg/dL: High HDL-cholesterol (negative risk factor forCHD)HDL-cholesterol is affected by a number of factors, e.g.smoking, exercise, hormones, sex and age. Performed By: #### L 500.4100, L501.9985 ####[facility] [address] [place], [address] Cholesterol in LDL [Mass/Vol] 31 mg/dL Normal [facility] Comment on above: Result Comment: Bord xgoknr=384-823 mg/dL Higher Upvz=006 mg/dL or greater Performed By: #### L 500.4100, L501.9985 ####[facility] [address] [place], [address] Cholesterol in VLDL [Mass/Vol] 33 mg/dL Normal 5-40 [facility] Comment on above: Performed By: #### L 500.4100, L501.9985 ####[facility] [address] [place], [address] Triglyceride [Mass/Vol] 166 mg/dL Normal [facility] Comment on above: Result Comment: The drugs N-Acetylcysteine and Metamizole may falselydepress this assay.Normal range: <150 mg/dLBorderline High: 150-199 mg/dLHigh: 200-499 mg/dLVery High: >500 mg/dL Performed By: #### L 500.4100, L501.9985 ####[facility] [address] [place], [address] Screening total cholesterol/ high density lipoprotein (HDL) cholesterol ratioOrdered By: Alonso Marte on 04-22-2025 Cholesterol.total/Chol esterol in HDL [Mass ratio] 3.76 {ratio} [facility] Serum or plasma cholesterol in HDL measurement (mass/volume)Ordered By: Alonso Marte on 04-22-2025 Cholesterol in HDL [Mass/Vol] 23 mg/dL Low >40 [facility] Comment on above: National Cholesterol Education Program (NCEP) guidelines:<40 mg/dL: Low HDL-cholesterol (major risk factor for CHD)>= 60 mg/dL: High HDL-cholesterol (negative risk factor for CHD)HDL-cholesterol is affected by a number of factors, e.g. smoking, exercise, hormones, sex and age. Serum or plasma cholesterol measurement (mass/volume)Ordered By: Alonso Marte on 04-22-2025 Cholesterol [Mass/Vol] 88 mg/dL <201 [facility] Comment on above: Cholesterol level, D esirable <200 mg/dLBorderline high cholesterol 200-239 mg/dLHigh cholesterol >=240 mg/dLRecommendations of the NCEP Adult Treatment Panel for the following risk-cutoff thresholds for the [place] population. Triglycerides measurementOrd ered By: Alonso Marte on 04-22-2025 Triglyceride [Mass/Vol] 166 mg/dL <199 [facility] Comment on above: The drugs N-Acetylcy steine and Metamizole may falsely depress this assay. Normal range: <150 mg/dLBorderline High: 150-199 mg/dLHigh: 200-499 mg/dLVery High: >500 mg/dL Absolute lymphocyte countOrd ered By: Alonso Marte on 04-21-2025 Lymphocytes Auto (Unsp spec) [#/Vol] 1.10 10*3/uL 0.83-4.51 [facility] Anion gap in Serum or Plasma Ordered By: Alonso Marte on 04-21-2025 Anion gap [Moles/Vol] 8 mmol/L 5- [facility] Automated lymphocyte count a s percentage of total leukocytesOrdered By: Alonso Marte on 04-21-2025 Lymphocytes/100 WBC Auto (Unsp spec) 18.6 % Low 19-41 [facility] BUN/creatinine ratioOrdered By: Alonso Marte on 04-21-2025 Urea nitrogen/Creatinine [Mass ratio] 15.0 mg/mg - [facility] Basic Metabolic Profile (BMP )on 04-21-2025 BUN/CRE 15.0 RATIO Normal - [facility] Comment on above: Performed By: #### L 500.2500, L100.0100 ####[facility] [address] [place], [address] Calcium [Mass/Vol] 9.0 mg/dL Normal 7.6-11.0 [facility] Comment on above: Performed By: #### L 500.2500, L100.0100 ####[facility] [address] [place], [address] Chloride [Moles/Vol] 107 mmol/L Normal 98-108 [facility] Comment on above: Performed By: #### L 500.2500, L100.0100 ####[facility] [address] [place], [address] CO2 [Moles/Vol] 27.7 mmol/L Normal 21.0-32.0 [facility] Comment on above: Performed By: #### L 500.2500, L100.0100 ####[facility] [address] [place], [address] Creatinine [Mass/Vol] 0.95 mg/dL Normal 0.70-1.20 [facility] Comment on above: Performed By: #### L 500.2500, L100.0100 ####[facility] [address] [place], [address] ECRCL 51.79 ml/min Normal 50-250 [facility] Comment on above: Performed By: #### L 500.2500, L100.0100 ####[facility] [address] [place], [address] GAP 8 Normal 5-15 [facility] Comment on above: Performed By: #### L 500.2500, L100.0100 ####[facility] [address] [place], [address] GFR/1.73 sq M.predicted among non-blacks MDRD (S/P/Bld) [Vol rate/Area] 64 mL/min/{1.73_m2} Normal >60 [facility] Comment on above: Result Comment: mL/m in/1.73m2 CKD-EPI Creatinine Equation (2020) Performed By: #### L 500.2500, L100.0100 ####[facility] [address] [place], [address] Glucose [Mass/Vol] 185 mg/dL High 70-99 [facility] Comment on above: Performed By: #### L 500.2500, L100.0100 ####[facility] [address] [place], [address] Potassium [Moles/Vol] 4.3 mmol/L Normal 3.3-5.1 [facility] Comment on above: Performed By: #### L 500.2500, L100.0100 ####[facility] [address] [place], [address] Sodium [Moles/Vol] 142 mmol/L Normal 133-145 [facility] Comment on above: Performed By: #### L 500.2500, L100.0100 ####[facility] [address] [place], [address] Urea nitrogen [Mass/Vol] 14 mg/dL Normal 4-19 [facility] Comment on above: Performed By: #### L 500.2500, L100.0100 ####[facility] [address] [place], [address] Basophil percentageOrdered B y: Alonso Conteok on 04-21-2025 Basophils/100 WBC (Bld) 0.3 % 0-1 [facility] Bedside Glucoseon 04-21-2025 FINGERSTICK GLU 139 mg/dL High 74-106 [facility] Comment on above: Result Comment: TORRES FRANKLIN OF PATIENT CARE PER NURSING PROTOCOL Performed By: #### L 501.080 ####[facility] [address] [place], [address] FINGERSTICK GLU 165 mg/dL High 74-106 [facility] Comment on above: Result Comment: TORRES FRANKLIN OF PATIENT CARE PER NURSING PROTOCOL Performed By: #### L 501.080 ####[facility] [address] [place], [address] CBC W/Diff, Automatedon 05-3 Absolute Lymph 1.10 X10 3/uL Normal 0.83-4.51 [facility] Comment on above: Performed By: #### L 500.2500, L100.0100 ####[facility] [address] [place], [address] Absolute Neut 4.2 X10 3/uL Normal 2.0-7.7 [facility] Comment on above: Performed By: #### L 500.2500, L100.0100 ####[facility] [address] [place], [address] Basophils/100 WBC (Bld) 0.3 % Normal 0-1 [facility] Comment on above: Performed By: #### L 500.2500, L100.0100 ####[facility] [address] [place], [address] Eosinophils/100 WBC (Bld) 2.7 % Normal 0-5 [facility] Comment on above: Performed By: #### L 500.2500, L100.0100 ####[facility] [address] [place], [address] Erythrocyte distribution width (RBC) [Ratio] 13.9 % Normal 11.6-14.6 [facility] Comment on above: Performed By: #### L 500.2500, L100.0100 ####[facility] [address] [place], [address] Hematocrit (Bld) [Volume fraction] 30.3 % Low 37-47 [facility] Comment on above: Performed By: #### L 500.2500, L100.0100 ####[facility] [address] [place], [address] Hemoglobin (Bld) [Mass/Vol] 9.7 g/dL Low 12.0-15.0 [facility] Comment on above: Performed By: #### L 500.2500, L100.0100 ####[facility] [address] [place], [address] IG% 0.300 Normal 0.0-0.9 [facility] Comment on above: Result Comment: IG% - Immature Granulocytes (promyelocytes, myelocytes andmetamyelocytes) > 1% indicates that a LEFT SHIFT is Present. Performed By: #### L 500.2500, L100.0100 ####[facility] [address] [place], [address] Lymphocytes/100 WBC (Bld) 18.6 % Low 19-41 [facility] Comment on above: Performed By: #### L 500.2500, L100.0100 ####[facility] [address] [place], [address] MCH (RBC) [Entitic mass] 31.1 pg Normal 27.0-32.0 [facility] Comment on above: Performed By: #### L 500.2500, L100.0100 ####[facility] [address] [place], [address] MCHC (RBC) [Mass/Vol] 32.0 g/dL Normal 32-36 [facility] Comment on above: Performed By: #### L 500.2500, L100.0100 ####[facility] [address] [place], [address] MCV (RBC) [Entitic vol] 97.1 fL Normal 81-99 [facility] Comment on above: Performed By: #### L 500.2500, L100.0100 ####[facility] [address] [place], [address] Monocytes/100 WBC (Bld) 7.5 % Normal 0-10 [facility] Comment on above: Performed By: #### L 500.2500, L100.0100 ####[facility] [address] [place], [address] Neutrophils/100 WBC (Bld) 70.6 % High 47-70 [facility] Comment on above: Performed By: #### L 500.2500, L100.0100 ####[facility] [address] [place], [address] Nucleated RBC (Bld) [#/Vol] 0 10*3/uL Normal 0-5 [facility] Comment on above: Performed By: #### L 500.2500, L100.0100 ####[facility] [address] [place], [address] Platelet mean volume (Bld) [Entitic vol] 10.3 fL Normal 6.2-12.0 [facility] Comment on above: Performed By: #### L 500.2500, L100.0100 ####[facility] [address] [place], [address] Platelets (Bld) [#/Vol] 168 10*3/uL Normal 150-450 [facility] Comment on above: Performed By: #### L 500.2500, L100.0100 ####[facility] [address] [place], [address] RBC (Bld) [#/Vol] 3.12 10*6/uL Low 4.2-5.4 [facility] Comment on above: Performed By: #### L 500.2500, L100.0100 ####[facility] [address] [place], [address] RDW SD 49.7 fl High 35.1-43.9 [facility] Comment on above: Performed By: #### L 500.2500, L100.0100 ####[facility] [address] [place], [address] WBC (Bld) [#/Vol] 5.9 10*3/uL Normal 4.4-11.0 [facility] Comment on above: Performed By: #### L 500.2500, L100.0100 ####[facility] [address] [place], [address] Carbon dioxide, total [Moles /volume] in Central venous bloodOrdered By: Alonso Marte on 04-21-2025 CO2 [Moles/Vol] 27.7 mmol/L 21.0-32.0 [facility] Chloride assayOrdered By: Rm Marte on 04-21-2025 Chloride [Moles/Vol] 107 mmol/L 98-108 [facility] Eosinophil percentageOrdered By: Alonso Marte 04-21-2025 Eosinophils/100 WBC (Bld) 2.7 % 0-5 [facility] Erythrocyte distribution wid th ratioOrdered By: Alonso Marte 04-21-2025 Erythrocyte distribution width (RBC) [Ratio] 13.9 % 11.6-14.6 [facility] Erythrocyte distribution wid th standard deviationOrdered By: Alonso Marte 04-21-2025 Erythrocyte distribution width (RBC) [Ratio] 49.7 fl High 35.1-43.9 [facility] Glomerular filtration rate ( GFR) estimation/1.73 sq m using serum, plasma, or whole bOrdered By: Alonso Marte on 04-21-2025 GFR/1.73 sq M.predicted among non-blacks MDRD (S/P/Bld) [Vol rate/Area] 64 mL/min/{1.73_m2} >60 [facility] Hematocrit Auto (Bld) [Volum e fraction]Ordered By: Alonso Marte 04-21-2025 Hematocrit (Bld) [Volume fraction] 30.3 % Low 37-47 [facility] Hemoglobin measurementOrdere d By: Alonso Marte 04-21-2025 Hemoglobin (Bld) [Mass/Vol] 9.7 g/dL Low 12.0-15.0 [facility] Immature granulocytes/100 WB C Auto (Bld)Ordered By: Alonso Marte on 04-21-2025 Immature granulocytes/100 WBC (Bld) 0.300 % 0.0-0.9 [facility] MCV (mean corpuscular volume ) determinationOrdered By: Alonso Marte on 04-21-2025 MCV (RBC) [Entitic vol] 97.1 fL 81-99 [facility] Mean corpuscular hemoglobin (MCH) determinationOrdered By: Alonso Marte on 04-21-2025 MCH (RBC) [Entitic mass] 31.1 pg 27.0-32.0 [facility] Monocyte percentageOrdered B y: Alonso Marte on 04-21-2025 Monocytes/100 WBC (Bld) 7.5 % 0-10 [facility] Neutrophil percentageOrdered By: Alonso Marte on 04-21-2025 Neutrophils/100 WBC (Bld) 70.6 % High 47-70 [facility] Platelet countOrdered By: Rm Marte on 04-21-2025 Platelets (Bld) [#/Vol] 168 10*3/uL 150-450 [facility] Potassium measurement (mass/ volume)Ordered By: Alonso Marte on 04-21-2025 Potassium (Unsp spec) [Mass/Vol] 4.3 mmol/L 3.3-5.1 [facility] RBC Auto (Bld) [#/Vol]Ordere d By: Alonso Marte on 04-21-2025 RBC (Bld) [#/Vol] 3.12 10*6/uL Low 4.2-5.4 [facility] Serum creatinine measurement (mass/volume)Ordered By: Alonso Marte on 04-21-2025 Creatinine [Mass/Vol] 0.95 mg/dL 0.70-1.20 [facility] Serum glucose measurement (m ass/volume)Ordered By: Alonso Marte on 04-21-2025 Glucose [Mass/Vol] 185 mg/dL High 70-99 [facility] Serum or plasma calcium loco urement (mass/volume)Ordered By: Alonso Marte on 04-21-2025 Calcium [Mass/Vol] 9.0 mg/dL 7.6-11.0 [facility] Serum or plasma urea nitroge n measurement (mass/volume)Ordered By: Alonso Marte on 04-21-2025 Urea nitrogen [Mass/Vol] 14 mg/dL - [facility] Sodium levelOrdered By: Alonso Marte on 04-21-2025 Sodium [Moles/Vol] 142 mmol/L 133-145 [facility] White blood cell (WBC) count Ordered By: Alonso Marte on 04-21-2025 WBC (Bld) [#/Vol] 5.9 10*3/uL 4.4-11.0 [facility] Anion gap in Serum or Plasma Ordered By: Maximo Orosco on 04-20-2025 Anion gap [Moles/Vol] 10 mmol/L 04-05 [facility] BUN/creatinine ratioOrdered By: Maximo Orosco on 04-20-2025 Urea nitrogen/Creatinine [Mass ratio] 13.4 mg/mg 09-10 [facility] Basic Metabolic Profile (BMP )on 04-20-2025 BUN/CRE 13.4 RATIO Normal 09-10 [facility] Comment on above: Performed By: #### L 100.0500, L500.2500 ####[facility] [address] [place], [address] Calcium [Mass/Vol] 8.7 mg/dL Normal 7.6-11.0 [facility] Comment on above: Performed By: #### L 100.0500, L500.2500 ####[facility] [address] [place], [address] Chloride [Moles/Vol] 105 mmol/L Normal 98-108 [facility] Comment on above: Performed By: #### L 100.0500, L500.2500 ####[facility] [address] [place], [address] CO2 [Moles/Vol] 23.8 mmol/L Normal 21.0-32.0 [facility] Comment on above: Performed By: #### L 100.0500, L500.2500 ####[facility] [address] [place], [address] Creatinine [Mass/Vol] 0.88 mg/dL Normal 0.70-1.20 [facility] Comment on above: Performed By: #### L 100.0500, L500.2500 ####[facility] [address] [place], [address] ECRCL 56.56 ml/min Normal 50-250 [facility] Comment on above: Performed By: #### L 100.0500, L500.2500 ####[facility] [address] [place], [address] GAP 10 Normal 5-15 [facility] Comment on above: Performed By: #### L 100.0500, L500.2500 ####[facility] [address] [place], [address] GFR/1.73 sq M.predicted among non-blacks MDRD (S/P/Bld) [Vol rate/Area] 70 mL/min/{1.73_m2} Normal >60 [facility] Comment on above: Result Comment: mL/m in/1.73m2 CKD-EPI Creatinine Equation (2020) Performed By: #### L 100.0500, L500.2500 ####[facility] [address] [place], [address] Glucose [Mass/Vol] 188 mg/dL High 70-99 [facility] Comment on above: Performed By: #### L 100.0500, L500.2500 ####[facility] [address] [place], [address] Potassium [Moles/Vol] 3.9 mmol/L Normal 3.3-5.1 [facility] Comment on above: Result Comment: Hemo lysis present, Results??could be affected.?? Performed By: #### L 100.0500, L500.2500 ####[facility] [address] [place], [address] Sodium [Moles/Vol] 138 mmol/L Normal 133-145 [facility] Comment on above: Performed By: #### L 100.0500, L500.2500 ####[facility] [address] [place], [address] Urea nitrogen [Mass/Vol] 12 mg/dL Normal 4-19 [facility] Comment on above: Performed By: #### L 100.0500, L500.2500 ####[facility] [address] [place], [address] Bedside Glucoseon 04-20-2025 FINGERSTICK GLU 177 mg/dL High 74-106 [facility] Comment on above: Result Comment: TORRES GEMENT OF PATIENT CARE PER NURSING PROTOCOL Performed By: #### L 501.080 ####[facility] [address] [place], [address] FINGERSTICK GLU 225 mg/dL High 74-106 [facility] Comment on above: Result Comment: TORRES GEMENT OF PATIENT CARE PER NURSING PROTOCOL Performed By: #### L 501.080 ####[facility] [address] [place], [address] FINGERSTICK GLU 197 mg/dL High 74-106 [facility] Comment on above: Result Comment: TORRES GEMENT OF PATIENT CARE PER NURSING PROTOCOL Performed By: #### L 501.080 ####[facility] [address] [place], [address] CBC-Complete Blood Cnt No Di ffon 04-20-2025 Erythrocyte distribution width (RBC) [Ratio] 13.7 % Normal 11.6-14.6 [facility] Comment on above: Performed By: #### L 100.0500, L500.2500 ####[facility] [address] [place], [address] Hematocrit (Bld) [Volume fraction] 28.7 % Low 37-47 [facility] Comment on above: Performed By: #### L 100.0500, L500.2500 ####[facility] [address] [place], [address] Hemoglobin (Bld) [Mass/Vol] 9.6 g/dL Low 12.0-15.0 [facility] Comment on above: Performed By: #### L 100.0500, L500.2500 ####[facility] [address] [place], [address] MCH (RBC) [Entitic mass] 31.3 pg Normal 27.0-32.0 [facility] Comment on above: Performed By: #### L 100.0500, L500.2500 ####[facility] [address] [place], [address] MCHC (RBC) [Mass/Vol] 33.4 g/dL Normal 32-36 [facility] Comment on above: Performed By: #### L 100.0500, L500.2500 ####[facility] [address] [place], [address] MCV (RBC) [Entitic vol] 93.5 fL Normal 81-99 [facility] Comment on above: Performed By: #### L 100.0500, L500.2500 ####[facility] [address] [place], [address] Platelet mean volume (Bld) [Entitic vol] 10.7 fL Normal 6.2-12.0 [facility] Comment on above: Performed By: #### L 100.0500, L500.2500 ####[facility] [address] [place], [address] Platelets (Bld) [#/Vol] 175 10*3/uL Normal 150-450 [facility] Comment on above: Performed By: #### L 100.0500, L500.2500 ####[facility] [address] [place], [address] RBC (Bld) [#/Vol] 3.07 10*6/uL Low 4.2-5.4 [facility] Comment on above: Performed By: #### L 100.0500, L500.2500 ####[facility] [address] [place], [address] RDW SD 46.6 fl High 35.1-43.9 [facility] Comment on above: Performed By: #### L 100.0500, L500.2500 ####[facility] [address] [place], [address] WBC (Bld) [#/Vol] 6.0 10*3/uL Normal 4.4-11.0 [facility] Comment on above: Performed By: #### L 100.0500, L500.2500 ####[facility] [address] [place], [address] Carbon dioxide, total [Moles /volume] in Central venous bloodOrdered By: Maximo Orosco on 04-20-2025 CO2 [Moles/Vol] 23.8 mmol/L 21.0-32.0 [facility] Chloride assayOrdered By: Peter Orosco on 04-20-2025 Chloride [Moles/Vol] 105 mmol/L 98-108 [facility] Erythrocyte distribution wid th ratioOrdered By: Maximo Orosco on 04-20-2025 Erythrocyte distribution width (RBC) [Ratio] 13.7 % 11.6-14.6 [facility] Erythrocyte distribution wid th standard deviationOrdered By: Maximo Orosco on 04-20-2025 Erythrocyte distribution width (RBC) [Ratio] 46.6 fl High 35.1-43.9 [facility] Glomerular filtration rate ( GFR) estimation/1.73 sq m using serum, plasma, or whole bOrdered By: Maximo Orosco on 04-20-2025 GFR/1.73 sq M.predicted among non-blacks MDRD (S/P/Bld) [Vol rate/Area] 70 mL/min/{1.73_m2} >60 [facility] Comment on above: mL/min/1.73m2 CKD-EP I Creatinine Equation (2020) Glucose measurement at bedsi deOrdered By: Maximo Orosco on 04-20-2025 Glucose [Mass/Vol] 225 mg/dL High 74-106 [facility] Comment on above: MANAGEMENT OF PATIEN T CARE PER NURSING PROTOCOL Hematocrit Auto (Bld) [Volum e fraction]Ordered By: Maximo Orosco on 04-20-2025 Hematocrit (Bld) [Volume fraction] 28.7 % Low 37-47 [facility] Hemoglobin measurementOrdere d By: Maximo Orosco on 04-20-2025 Hemoglobin (Bld) [Mass/Vol] 9.6 g/dL Low 12.0-15.0 [facility] MCV (mean corpuscular volume ) determinationOrdered By: Maximo Orosco on 04-20-2025 MCV (RBC) [Entitic vol] 93.5 fL 81-99 [facility] Mean corpuscular hemoglobin (MCH) determinationOrdered By: Maximo Orosco on 04-20-2025 MCH (RBC) [Entitic mass] 31.3 pg 27.0-32.0 [facility] Mean corpuscular hemoglobin concentration (MCHC) determinationOrdered By: Maximo Orosco on 04-20-2025 MCHC (RBC) [Mass/Vol] 33.4 g/dL 32-36 [facility] Mean platelet volume determi nationOrdered By: Maximo Orosco on 04-20-2025 Platelet mean volume (Bld) [Entitic vol] 10.7 fL 6.2-12.0 [facility] Platelet countOrdered By: Peter Orosco on 04-20-2025 Platelets (Bld) [#/Vol] 175 10*3/uL 150-450 [facility] Potassium measurement (mass/ volume)Ordered By: Maximo Orosco on 04-20-2025 Potassium (Unsp spec) [Mass/Vol] 3.9 mmol/L 3.3-5.1 [facility] Comment on above: Hemolysis present, R esults could be affected. RBC Auto (Bld) [#/Vol]Ordere d By: Maximo Orosco on 04-20-2025 RBC (Bld) [#/Vol] 3.07 10*6/uL Low 4.2-5.4 [facility] Serum creatinine measurement (mass/volume)Ordered By: Maximo Orosco on 04-20-2025 Creatinine [Mass/Vol] 0.88 mg/dL 0.70-1.20 [facility] Serum glucose measurement (m ass/volume)Ordered By: Maximo Orosco on 04-20-2025 Glucose [Mass/Vol] 188 mg/dL High 70-99 [facility] Serum or plasma calcium loco urement (mass/volume)Ordered By: Maximo Orosco on 04-20-2025 Calcium [Mass/Vol] 8.7 mg/dL 7.6-11.0 [facility] Serum or plasma urea nitroge n measurement (mass/volume)Ordered By: Maximo Orosco on 04-20-2025 Urea nitrogen [Mass/Vol] 12 mg/dL 4-19 [facility] Sodium levelOrdered By: Pasquale Orosco on 04-20-2025 Sodium [Moles/Vol] 138 mmol/L 133-145 [facility] White blood cell (WBC) count Ordered By: Maximo Orosco on 04-20-2025 WBC (Bld) [#/Vol] 6.0 10*3/uL 4.4-11.0 [facility] 12 Lead EKGon 04-19-2025 12 Lead EKG Normal [facility] Absolute lymphocyte countOrd ered By: Romeo Padron on 04-19-2025 Lymphocytes Auto (Unsp spec) [#/Vol] 0.90 10*3/uL 0.83-4.51 [facility] Absolute neutrophil countOrd ered By: Romeo Padron on 04-19-2025 Neutrophils (Bld) [#/Vol] 6.8 10*3/uL 2.0-7.7 [facility] Anion gap in Serum or Plasma Ordered By: Romeo Padron on 04-19-2025 Anion gap [Moles/Vol] 10 mmol/L 5-15 [facility] Automated lymphocyte count a s percentage of total leukocytesOrdered By: Romeo Padron on 04-19-2025 Lymphocytes/100 WBC Auto (Unsp spec) 10.4 % Low 19-41 [facility] BUN/creatinine ratioOrdered By: Romeo Padron on 04-19-2025 Urea nitrogen/Creatinine [Mass ratio] 19.3 mg/mg - [facility] Basic Metabolic Profile (BMP )on 04-19-2025 BUN/CRE 19.3 RATIO Normal - [facility] Comment on above: Performed By: #### L 501.9520, L501.5200, L100.0100, L500.2500 ####[facility] [address] [place], [address] Calcium [Mass/Vol] 9.0 mg/dL Normal 7.6-11.0 [facility] Comment on above: Performed By: #### L 501.9520, L501.5200, L100.0100, L500.2500 ####[facility] [address] [place], [address] Chloride [Moles/Vol] 99 mmol/L Normal 98-108 [facility] Comment on above: Performed By: #### L 501.9520, L501.5200, L100.0100, L500.2500 ####[facility] [address] [place], [address] CO2 [Moles/Vol] 25.9 mmol/L Normal 21.0-32.0 [facility] Comment on above: Performed By: #### L 501.9520, L501.5200, L100.0100, L500.2500 ####[facility] [address] [place], [address] Creatinine [Mass/Vol] 1.02 mg/dL Normal 0.70-1.20 [facility] Comment on above: Performed By: #### L 501.9520, L501.5200, L100.0100, L500.2500 ####[facility] [address] [place], [address] ECRCL 50.29 ml/min Normal 50-250 [facility] Comment on above: Performed By: #### L 501.9520, L501.5200, L100.0100, L500.2500 ####[facility] [address] [place], [address] GAP 10 Normal 5-15 [facility] Comment on above: Performed By: #### L 501.9520, L501.5200, L100.0100, L500.2500 ####[facility] [address] [place], [address] GFR/1.73 sq M.predicted among non-blacks MDRD (S/P/Bld) [Vol rate/Area] 58 mL/min/{1.73_m2} Low >60 [facility] Comment on above: Result Comment: mL/m in/1.73m2 CKD-EPI Creatinine Equation (2020) Performed By: #### L 501.9520, L501.5200, L100.0100, L500.2500 ####[facility] [address] [place], [address] Glucose [Mass/Vol] 229 mg/dL High 70-99 [facility] Comment on above: Performed By: #### L 501.9520, L501.5200, L100.0100, L500.2500 ####[facility] [address] [place], [address] Potassium [Moles/Vol] 4.4 mmol/L Normal 3.3-5.1 [facility] Comment on above: Result Comment: Hemo lysis present, Results??could be affected.?? Performed By: #### L 501.9520, L501.5200, L100.0100, L500.2500 ####[facility] [address] [place], [address] Sodium [Moles/Vol] 135 mmol/L Normal 133-145 [facility] Comment on above: Performed By: #### L 501.9520, L501.5200, L100.0100, L500.2500 ####[facility] [address] [place], [address] Urea nitrogen [Mass/Vol] 20 mg/dL High 4-19 [facility] Comment on above: Performed By: #### L 501.9520, L501.5200, L100.0100, L500.2500 ####[facility] [address] [place], [address] Basophil percentageOrdered B y: Romeo Padron on 04-19-2025 Basophils/100 WBC (Bld) 0.3 % 0-1 [facility] Bedside Glucoseon 04-19-2025 FINGERSTICK GLU 242 mg/dL High 74-106 [facility] Comment on above: Result Comment: TORRES GEMENT OF PATIENT CARE PER NURSING PROTOCOL Performed By: #### L 501.080 ####[facility] [address] [place], [address] FINGERSTICK GLU 260 mg/dL High 74-106 [facility] Comment on above: Result Comment: TORRES GEMENT OF PATIENT CARE PER NURSING PROTOCOL Performed By: #### L 501.080 ####[facility] [address] [place], [address] FINGERSTICK GLU 153 mg/dL High 74-106 [facility] Comment on above: Result Comment: TORRES GEMENT OF PATIENT CARE PER NURSING PROTOCOL Performed By: #### L 501.080 ####[facility] [address] [place], [address] Bilirubin Test strip Ql (U)O rdered By: Romeo Padron on 04-19-2025 Bilirubin Ql (U) Negative Negative [facility] CBC W/Diff, Automatedon - Absolute Lymph 0.90 X10 3/uL Normal 0.83-4.51 [facility] Comment on above: Performed By: #### L 501.9520, L501.5200, L100.0100, L500.2500 ####[facility] [address] [place], [address] Absolute Neut 6.8 X10 3/uL Normal 2.0-7.7 [facility] Comment on above: Performed By: #### L 501.9520, L501.5200, L100.0100, L500.2500 ####[facility] [address] [place], [address] Basophils/100 WBC (Bld) 0.3 % Normal 0-1 [facility] Comment on above: Performed By: #### L 501.9520, L501.5200, L100.0100, L500.2500 ####[facility] [address] [place], [address] Eosinophils/100 WBC (Bld) 2.5 % Normal 0-5 [facility] Comment on above: Performed By: #### L 501.9520, L501.5200, L100.0100, L500.2500 ####[facility] [address] [place], [address] Erythrocyte distribution width (RBC) [Ratio] 13.3 % Normal 11.6-14.6 [facility] Comment on above: Performed By: #### L 501.9520, L501.5200, L100.0100, L500.2500 ####[facility] [address] [place], [address] Hematocrit (Bld) [Volume fraction] 30.8 % Low 37-47 [facility] Comment on above: Performed By: #### L 501.9520, L501.5200, L100.0100, L500.2500 ####[facility] [address] [place], [address] Hemoglobin (Bld) [Mass/Vol] 10.4 g/dL Low 12.0-15.0 [facility] Comment on above: Performed By: #### L 501.9520, L501.5200, L100.0100, L500.2500 ####[facility] [address] [place], [address] IG% 0.300 Normal 0.0-0.9 [facility] Comment on above: Result Comment: IG% - Immature Granulocytes (promyelocytes, myelocytes andmetamyelocytes) > 1% indicates that a LEFT SHIFT is Present. Performed By: #### L 501.9520, L501.5200, L100.0100, L500.2500 ####[facility] [address] [place], [address] Lymphocytes/100 WBC (Bld) 10.4 % Low 19-41 [facility] Comment on above: Performed By: #### L 501.9520, L501.5200, L100.0100, L500.2500 ####[facility] [address] [place], [address] MCH (RBC) [Entitic mass] 31.3 pg Normal 27.0-32.0 [facility] Comment on above: Performed By: #### L 501.9520, L501.5200, L100.0100, L500.2500 ####[facility] [address] [place], [address] MCHC (RBC) [Mass/Vol] 33.8 g/dL Normal 32-36 [facility] Comment on above: Performed By: #### L 501.9520, L501.5200, L100.0100, L500.2500 ####[facility] [address] [place], [address] MCV (RBC) [Entitic vol] 92.8 fL Normal 81-99 [facility] Comment on above: Performed By: #### L 501.9520, L501.5200, L100.0100, L500.2500 ####[facility] [address] [place], [address] Monocytes/100 WBC (Bld) 8.2 % Normal 0-10 [facility] Comment on above: Performed By: #### L 501.9520, L501.5200, L100.0100, L500.2500 ####[facility] [address] [place], [address] Neutrophils/100 WBC (Bld) 78.3 % High 47-70 [facility] Comment on above: Performed By: #### L 501.9520, L501.5200, L100.0100, L500.2500 ####[facility] [address] [place], [address] Nucleated RBC (Bld) [#/Vol] 0 10*3/uL Normal 0-5 [facility] Comment on above: Performed By: #### L 501.9520, L501.5200, L100.0100, L500.2500 ####[facility] [address] [place], [address] Platelet mean volume (Bld) [Entitic vol] 10.8 fL Normal 6.2-12.0 [facility] Comment on above: Performed By: #### L 501.9520, L501.5200, L100.0100, L500.2500 ####[facility] [address] [place], [address] Platelets (Bld) [#/Vol] 189 10*3/uL Normal 150-450 [facility] Comment on above: Performed By: #### L 501.9520, L501.5200, L100.0100, L500.2500 ####[facility] [address] [place], [address] RBC (Bld) [#/Vol] 3.32 10*6/uL Low 4.2-5.4 [facility] Comment on above: Performed By: #### L 501.9520, L501.5200, L100.0100, L500.2500 ####[facility] [address] [place], [address] RDW SD 44.9 fl High 35.1-43.9 [facility] Comment on above: Performed By: #### L 501.9520, L501.5200, L100.0100, L500.2500 ####[facility] [address] [place], [address] WBC (Bld) [#/Vol] 8.7 10*3/uL Normal 4.4-11.0 [facility] Comment on above: Performed By: #### L 501.9520, L501.5200, L100.0100, L500.2500 ####[facility] [address] [place], [address] Carbon dioxide, total [Moles /volume] in Central venous bloodOrdered By: Romeo Padron on 04-19-2025 CO2 [Moles/Vol] 25.9 mmol/L 21.0-32.0 [facility] Chloride assayOrdered By: Lizeth Padron on 04-19-2025 Chloride [Moles/Vol] 99 mmol/L 98-108 [facility] Summary on 04-19-2025 Emergency Department Summary Normal [facility] Eosinophil percentageOrdered By: Romeo Padron on 04-19-2025 Eosinophils/100 WBC (Bld) 2.5 % 0-5 [facility] Erythrocyte distribution wid th ratioOrdered By: Romeo Padron on 04-19-2025 Erythrocyte distribution width (RBC) [Ratio] 13.3 % 11.6-14.6 [facility] Erythrocyte distribution wid th standard deviationOrdered By: Romeo Padron on 04-19-2025 Erythrocyte distribution width (RBC) [Ratio] 44.9 fl High 35.1-43.9 [facility] Glomerular filtration rate ( GFR) estimation/1.73 sq m using serum, plasma, or whole bOrdered By: Romeo Padron on 04-19-2025 GFR/1.73 sq M.predicted among non-blacks MDRD (S/P/Bld) [Vol rate/Area] 58 mL/min/{1.73_m2} Low >60 [facility] Comment on above: mL/min/1.73m2 CKD-EP I Creatinine Equation (2020) [facility] deOrdered By: Romeo Padron on 04-19-2025 Glucose [Mass/Vol] 153 mg/dL High 74-106 [facility] Comment on above: MANAGEMENT OF PATIEN T CARE PER NURSING PROTOCOL H AND P Exam - [place] 04-19-2025 H&P Exam - Hospitalist Normal [facility] Hematocrit Auto (Bld) [Volum e fraction]Ordered By: Romeo Padron on 04-19-2025 Hematocrit (Bld) [Volume fraction] 30.8 % Low 37-47 [facility] Hemoglobin measurementOrdere d By: Romeo Padron on 04-19-2025 Hemoglobin (Bld) [Mass/Vol] 10.4 g/dL Low 12.0-15.0 [facility] Immature granulocytes/100 WB C Auto (Bld)Ordered By: Romeo Padron on 04-19-2025 Immature granulocytes/100 WBC (Bld) 0.300 % 0.0-0.9 [facility] Comment on above: IG% - Immature Granu locytes (promyelocytes, myelocytes and metamyelocytes) > 1% indicates that a LEFT SHIFT is Present. Ketones Test strip Ql (U)Ord ered By: Romeo Padron on 04-19-2025 Ketones Ql (U) Negative Negative [facility] MCV (mean corpuscular volume ) determinationOrdered By: Romeo Padron on 04-19-2025 MCV (RBC) [Entitic vol] 92.8 fL 81-99 [facility] Magnesiumon 04-19-2025 Magnesium [Mass/Vol] 1.6 mg/dL Normal 1.5-2.2 [facility] Comment on above: Performed By: #### L 501.7620, L501.5200, L100.0100, L500.2500 ####[facility] [address] [place], [place], [id number] Magnesium measurement (mass/ volume)Ordered By: Romeo Padron on 04-19-2025 Magnesium (Unsp spec) [Mass/Vol] 1.6 mg/dL 1.5-2.2 [facility] Mean corpuscular hemoglobin (MCH) determinationOrdered By: Romeo Padron on 04-19-2025 MCH (RBC) [Entitic mass] 31.3 pg 27.0-32.0 [facility] Mean corpuscular hemoglobin concentration (MCHC) determinationOrdered By: Romeo Padron on 04-19-2025 MCHC (RBC) [Mass/Vol] 33.8 g/dL 32-36 [facility] Mean platelet volume determi nationOrdered By: Romeo Padron on 04-19-2025 Platelet mean volume (Bld) [Entitic vol] 10.8 fL 6.2-12.0 [facility] Microscopic analysis of urin e for red blood cells (RBC)Ordered By: Romeo Padron on 04-19-2025 Microscopic analysis of urine for red blood cells (RBC) 0 SEEN /hpf 0-5 [facility] Monocyte percentageOrdered B y: Romeo Padron on 04-19-2025 Monocytes/100 WBC (Bld) 8.2 % 0-10 [facility] Mucus LM Ql (Urine sed)Order ed By: Romeo Padron on 04-19-2025 Mucus Ql (Urine sed) 0 SEEN /hpf [facility] Neutrophil percentageOrdered By: Romeo Padron on 04-19-2025 Neutrophils/100 WBC (Bld) 78.3 % High 47-70 [facility] Nitrite Test strip Ql (U)Ord ered By: Romeo Padron on 04-19-2025 Nitrite Ql (U) Negative Negative [facility] Nucleated red blood cell per centageOrdered By: Romeo Padron on 04-19-2025 Nucleated RBC/100 WBC (Bld) [Ratio] 0 % 0-5 [facility] Platelet countOrdered By: Lizeth Padron on 04-19-2025 Platelets (Bld) [#/Vol] 189 10*3/uL 150-450 [facility] Potassium measurement (mass/ volume)Ordered By: Romeo Padron on 04-19-2025 Potassium (Unsp spec) [Mass/Vol] 4.4 mmol/L 3.3-5.1 [facility] Comment on above: Hemolysis present, R esults could be affected. Protein Test strip Ql (U)Ord ered By: Romeo Padron on 04-19-2025 Protein Ql (U) 15 mg/dl High Negative [facility] RBC Auto (Bld) [#/Vol]Ordere d By: Romeo Padron on 04-19-2025 RBC (Bld) [#/Vol] 3.32 10*6/uL Low 4.2-5.4 [facility] Serum creatinine measurement (mass/volume)Ordered By: Romeo Padron on 04-19-2025 Creatinine [Mass/Vol] 1.02 mg/dL 0.70-1.20 [facility] Serum glucose measurement (m ass/volume)Ordered By: Romeo Padron on 04-19-2025 Glucose [Mass/Vol] 229 mg/dL High 70-99 [facility] Serum or plasma calcium loco urement (mass/volume)Ordered By: Romeo Padron on 04-19-2025 Calcium [Mass/Vol] 9.0 mg/dL 7.6-11.0 [facility] Serum or plasma urea nitroge n measurement (mass/volume)Ordered By: Romeo Padron on 04-19-2025 Urea nitrogen [Mass/Vol] 20 mg/dL High 4-19 [facility] Sodium levelOrdered By: Aleksander Padron on 04-19-2025 Sodium [Moles/Vol] 135 mmol/L 133-145 [facility] Squamous epithelial cells de tection in urine sediment by light microscopyOrdered By: Romeo Padron on 04-19-2025 Epithelial cells.squamous LM Ql (Urine sed) 0 SEEN /hpf 5-10 [facility] TSH DL <= 0.005 mIU/L QnOrde red By: Romeo Padron on 04-19-2025 TSH Qn 4.050 uIU/mL 0.300-4.20 0 [facility] Thyroid Stim Hormone (TSH)on 04-19-2025 TSH 4.050 uIU/mL Normal 0.300-4.20 0 [facility] Comment on above: Performed By: #### L 501.9520, L501.5200, L100.0100, L500.2500 ####[facility] [address] [place], [address] Urinalysis, Completeon 04-19 BACTERIA 0 SEEN Normal None Seen [facility] Comment on above: Order Comment: HUNTER CTOR TO SPECIFY Performed By: #### L 400.0001 ####[facility] [address] [place], [address] EPI,SQUAMOUS 0 SEEN Normal 5-10 [facility] Comment on above: Order Comment: HUNTER CTOR TO SPECIFY Performed By: #### L 400.0001 ####[facility] [address] [place], [address] Mucus Ql (Urine sed) 0 SEEN Normal [facility] Comment on above: Order Comment: HUNTER CTOR TO SPECIFY Performed By: #### L 400.0001 ####[facility] [address] [place], [address] RBC 0 SEEN Normal 0-5 [facility] Comment on above: Order Comment: HUNTER CTOR TO SPECIFY Performed By: #### L 400.0001 ####[facility] [address] [place], [address] WBC 0 SEEN Normal 0-5 [facility] Comment on above: Order Comment: HUNTER CTOR TO SPECIFY Performed By: #### L 400.0001 ####[facility] [address] [place], [address] Urine clarityOrdered By: Ryan Padron on 04-19-2025 Clarity (U) Clear Clear [facility] Urine color determinationOrd ered By: Romeo Padron on 04-19-2025 Color (U) Yellow Yellow [facility] Urine glucose detectionOrder ed By: Romeo Padron on 04-19-2025 Glucose Ql (U) 100 mg/dl High Normal [facility] Urine leukocyte esterase det ection by dipstickOrdered By: Romeo Padron on 04-19-2025 Leukocyte esterase Test strip Ql (U) Negative Negative [facility] Urine pHOrdered By: Romeo Garrido ndes on 04-19-2025 pH (U) 6.5 [pH] 5.0 - 8.0 [facility] Urine sediment bacteria coun t by microscopy (number/high power field)Ordered By: Romeo Padron on 04-19-2025 Bacteria LM.HPF (Urine sed) [#/Area] 0 /[HPF] None Seen [facility] Urine specific gravity measu rementOrdered By: Romeo Padron on 04-19-2025 Specific gravity (U) [Rel density] 1.010 1.002-1.03 0 [facility] Urine urobilinogen measureme ntOrdered By: Romeo Padron on 04-19-2025 Urobilinogen Ql (U) Normal mg/dl Normal [facility] White blood cell (WBC) count Ordered By: Romeo Padron on 04-19-2025 WBC (Bld) [#/Vol] 8.7 10*3/uL 4.4-11.0 [facility] White blood cell countOrdere d By: Romeo Padron on 04-19-2025 White blood cell count 0 SEEN /hpf 0-5 [facility] MR Brain WO contraston 04-04 IMPRESSION: 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 Remainder of the brain shows relatively mild background chronic microvascular disease. No acute abnormalities. 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: [facility] Transcribe Date/Time: Apr 04 2025 12:45P Dictated by : BRITANY GASPAR MD This examination was interpreted and the report reviewed and electronically signed by: BRITANY GASPAR MD on Apr 04 2025 1:03PM [facility] * * *Final Report* * * DATE OF EXAM: Apr 04 2025 12:39PM [facility] 0294 - MRI BRAIN WO IVCON / PROCEDURE REASON: multiple diagnoses * * * * Physician Interpretation * * * * EXAMINATION: MRI BRAIN WO IVCON CLINICAL HISTORY: Essential tremor Dyskinesia, tardive. This information is taken directly from the order desk caller system. TECHNIQUE: Routine noncontrast MRI protocol including [...] Prior lens replacements. Orbits are otherwise unremarkable. [facility] Provider, [facility] - 04/04/2025 * * *Final Report* * * DATE OF EXAM: Apr 04 2025 12:39PM [facility] 0294 - MRI BRAIN WO IVCON / PROCEDURE REASON: multiple diagnoses * * * * Physician Interpretation * * * * EXAMINATION: MRI BRAIN WO IVCON CLINICAL HISTORY: Essential tremor Dyskinesia, tardive. This information is taken directly from the order desk caller system. TECHNIQUE: Routine noncontrast MRI protocol including [...] background chronic microvascular disease. No acute abnormalities. 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: [facility] Transcribe Date/Time: Apr 04 2025 12:45P Dictated by : BRITANY GASPAR MD This examination was interpreted and the report reviewed and electronically signed by: BRITANY GASPAR MD on Apr 04 2025 1:03PM EST [facility] Radiology Study observation (narrative) [facility] MR Brain WO contrastOrdered By: [facility] Provider on 04-04-2025 [facility] MRI BRAIN WO IVCONon 025 MRI BRAIN WO IVCON * * *Final Report* * * DATE OF EXAM: Apr 04 2025 12:39PM [facility] 0294 - MRI BRAIN WO IVCON / PROCEDURE REASON: multiple diagnoses * * * * Physician Interpretation * * * * EXAMINATION: MRI BRAIN WO IVCON CLINICAL HISTORY: Essential tremor Dyskinesia, tardive. This information is taken directly from the order desk caller system. TECHNIQUE: Routine noncontrast MRI protocol including [...] background chronic microvascular disease. No acute abnormalities. 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: [facility] Transcribe Date/Time: Apr 04 2025 12:45P Dictated by : BRITANY GASPAR MD This examination was interpreted and the report reviewed and electronically signed by: BRITANY GASPAR MD on Apr 04 2025 1:03PM EST [id number] [facility] NURSING PROGon 04-04-2025 NURSING PROG HNO ID: [id number] Author: JAINNE TOMPKINS RN Service: Nursing Author Type: Registered [...] REVIEWED: YES PROCEDURE: MRI - Conditional Pacemaker [employer] Administrative Office Manager Device - Settings: DOO 90 bpm Physiologic monitoring per standard operating procedure. See vital sign flowsheet. PERIPHERAL IV ACCESS: Not applicable PATIENT TOLERATED PROCEDURE: Without incident. PATIENT DISCHARGED TO: Home/Self Care SIGNED BY: TANIA Barnett Patient arrived here today for an MRI. Patients [employer] Pacemaker was placed in MRI safe mode by shop technician AND device. Vitals remained stable throughout - see flowsheet. MRI was completed and then pacemaker was taken out of MRI safe mode and tolerated well. Patient was discharged home with family. [facility] XR CHEST 2V FRONTAL/LATon XR CHEST 2V [...] chest. No developing abnormality or acute process 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: [facility] Transcribe Date/Time: Apr 03 2025 3:49P Dictated by : MIRA HODGSON MD This examination was interpreted and the report reviewed and electronically signed by: MIRA HODGSON MD on Apr 03 2025 3:51PM EST [id number] [facility] 03-28-2025 [facility] Telephone (NRMDLashell) MANSI CARO ([id number]) 1955 F Date Time Provider Department 03/28/25 LEYLA MURPHY During your visit today, we recorded the following information about you: Soumya Moss RN 03/28/2025 9:48 AM Signed Voicemail received March 27, 2025 1451 Spouse calling to check on status of [...] Fully Assessed Reason for Visit: Patient Question [8077] Prescriptions as of 03/28/2025 - deutetrabenazine XR [...] Status:Closed by SOUMYA MOSS on 03/28/25 Normal [facility] PT D/C Summary (1)on 025 PT D/C Summary (1) Normal [facility] 12 Lead EKGon 03-10-2025 12 Lead EKG Normal [facility] 36on 03-10-2025 36 S-Patient and patien t spouse calling in re: patient fell yesterday and has Left hip pain . B-Happened yesterday A-states having hard time walking due to pain, No COVID Symptoms. Has a brouis, no other sites with pain R-Scheduled Same Day After hours appt today @ 10:00a 03/10/25 @ [facility], address provided Reason for Disposition MILD weakness (i.e., does not interfere with ability to work, go to school, normal activities) (Exception: Mild weakness is a chronic symptom.) Answer Assessment - Initial Assessment Questions . Protocols used: [facility] Absolute lymphocyte countOrd ered By: Mellisa Cabrera on 03-10-2025 Lymphocytes Auto (Unsp spec) [#/Vol] 1.61 10*3/uL 0.83-4.51 [facility] Absolute neutrophil countOrd ered By: Mellisa Cabrera on 03-10-2025 Neutrophils (Bld) [#/Vol] 3.9 10*3/uL 2.0-7.7 [facility] Anion gap in Serum or Plasma Ordered By: Mellisa Cabrera on 03-10-2025 Anion gap [Moles/Vol] 11 mmol/L 5-15 [facility] Automated lymphocyte count a s percentage of total leukocytesOrdered By: Mellisa Cabrera on 03-10-2025 Lymphocytes/100 WBC Auto (Unsp spec) 25.4 % - [facility] BUN/creatinine ratioOrdered By: Mellisa Cabrera on 03-10-2025 Urea nitrogen/Creatinine [Mass ratio] 20.1 mg/mg High 10- [facility] Basic Metabolic Profile (BMP )on 03-10-2025 BUN/CRE 20.1 RATIO High 10-20 [facility] Comment on above: Performed By: #### L 100.0100, L500.2500 ####[facility] [address] [place], [address] Calcium [Mass/Vol] 9.1 mg/dL Normal 7.6-11.0 [facility] Comment on above: Performed By: #### L 100.0100, L500.2500 ####[facility] [address] [place], [address] Chloride [Moles/Vol] 106 mmol/L Normal 98-108 [facility] Comment on above: Performed By: #### L 100.0100, L500.2500 ####[facility] [address] [place], [address] CO2 [Moles/Vol] 22.8 mmol/L Normal 21.0-32.0 [facility] Comment on above: Performed By: #### L 100.0100, L500.2500 ####[facility] [address] [place], [address] Creatinine [Mass/Vol] 0.97 mg/dL Normal 0.70-1.20 [facility] Comment on above: Performed By: #### L 100.0100, L500.2500 ####[facility] [address] [place], [address] ECRCL 51.73 ml/min Normal 50-250 [facility] Comment on above: Performed By: #### L 100.0100, L500.2500 ####[facility] [address] [place], [address] GAP 11 Normal 5-15 [facility] Comment on above: Performed By: #### L 100.0100, L500.2500 ####[facility] [address] [place], [address] GFR/1.73 sq M.predicted among non-blacks MDRD (S/P/Bld) [Vol rate/Area] 62 mL/min/{1.73_m2} Normal >60 [facility] Comment on above: Result Comment: mL/m in/1.73m2 CKD-EPI Creatinine Equation (2020) Performed By: #### L 100.0100, L500.2500 ####[facility] [address] [place], [address] Glucose [Mass/Vol] 139 mg/dL High 70-99 [facility] Comment on above: Performed By: #### L 100.0100, L500.2500 ####[facility] [address] [place], [address] Potassium [Moles/Vol] 4.3 mmol/L Normal 3.3-5.1 [facility] Comment on above: Performed By: #### L 100.0100, L500.2500 ####[facility] [address] [place], [address] Sodium [Moles/Vol] 140 mmol/L Normal 133-145 [facility] Comment on above: Performed By: #### L 100.0100, L500.2500 ####[facility] [address] [place], [address] Urea nitrogen [Mass/Vol] 20 mg/dL High 4-19 [facility] Comment on above: Performed By: #### L 100.0100, L500.2500 ####[facility] [address] [place], [address] Basophil percentageOrdered B y: Mellisa Cabrera on 03-10-2025 Basophils/100 WBC (Bld) 0.3 % 0-1 [facility] Bilirubin Test strip Ql (U)O rdered By: Mellisa Cabrera on 03-10-2025 Bilirubin Ql (U) Negative Negative [facility] CBC W/Diff, Automatedon 04- Absolute Lymph 1.61 X10 3/uL Normal 0.83-4.51 [facility] Comment on above: Performed By: #### L 100.0100, L500.2500 ####[facility] [address] [place], [address] Absolute Neut 3.9 X10 3/uL Normal 2.0-7.7 [facility] Comment on above: Performed By: #### L 100.0100, L500.2500 ####[facility] [address] [place], [address] Basophils/100 WBC (Bld) 0.3 % Normal 0-1 [facility] Comment on above: Performed By: #### L 100.0100, L500.2500 ####[facility] [address] [place], [address] Eosinophils/100 WBC (Bld) 3.8 % Normal 0-5 [facility] Comment on above: Performed By: #### L 100.0100, L500.2500 ####[facility] [address] [place], [address] Erythrocyte distribution width (RBC) [Ratio] 12.8 % Normal 11.6-14.6 [facility] Comment on above: Performed By: #### L 100.0100, L500.2500 ####[facility] [address] [place], [address] Hematocrit (Bld) [Volume fraction] 32.2 % Low 37-47 [facility] Comment on above: Performed By: #### L 100.0100, L500.2500 ####[facility] [address] [place], [address] Hemoglobin (Bld) [Mass/Vol] 11.0 g/dL Low 12.0-15.0 [facility] Comment on above: Performed By: #### L 100.0100, L500.2500 ####[facility] [address] [place], [address] IG% 0.300 Normal 0.0-0.9 [facility] Comment on above: Result Comment: IG% - Immature Granulocytes (promyelocytes, myelocytes andmetamyelocytes) > 1% indicates that a LEFT SHIFT is Present. Performed By: #### L 100.0100, L500.2500 ####[facility] [address] [place], [address] Lymphocytes/100 WBC (Bld) 25.4 % Normal 19-41 [facility] Comment on above: Performed By: #### L 100.0100, L500.2500 ####[facility] [address] [place], [address] MCH (RBC) [Entitic mass] 30.9 pg Normal 27.0-32.0 [facility] Comment on above: Performed By: #### L 100.0100, L500.2500 ####[facility] [address] [place], [address] MCHC (RBC) [Mass/Vol] 34.2 g/dL Normal 32-36 [facility] Comment on above: Performed By: #### L 100.0100, L500.2500 ####[facility] [address] [place], [address] MCV (RBC) [Entitic vol] 90.4 fL Normal 81-99 [facility] Comment on above: Performed By: #### L 100.0100, L500.2500 ####[facility] [address] [place], [address] Monocytes/100 WBC (Bld) 8.3 % Normal 0-10 [facility] Comment on above: Performed By: #### L 100.0100, L500.2500 ####[facility] [address] [place], [address] Neutrophils/100 WBC (Bld) 61.9 % Normal 47-70 [facility] Comment on above: Performed By: #### L 100.0100, L500.2500 ####[facility] [address] [place], [address] Nucleated RBC (Bld) [#/Vol] 0 10*3/uL Normal 0-5 [facility] Comment on above: Performed By: #### L 100.0100, L500.2500 ####[facility] [address] [place], [address] Platelet mean volume (Bld) [Entitic vol] 11.0 fL Normal 6.2-12.0 [facility] Comment on above: Performed By: #### L 100.0100, L500.2500 ####[facility] [address] [place], [address] Platelets (Bld) [#/Vol] 148 10*3/uL Low 150-450 [facility] Comment on above: Performed By: #### L 100.0100, L500.2500 ####[facility] [address] [place], [address] RBC (Bld) [#/Vol] 3.56 10*6/uL Low 4.2-5.4 [facility] [facility] Comment on above: Performed By: #### L 100.0100, L500.2500 ####[facility] [address] [place], [address] RDW SD 42.3 fl Normal 35.1-43.9 [facility] Comment on above: Performed By: #### L 100.0100, L500.2500 ####[facility] [address] [place], [address] WBC (Bld) [#/Vol] 6.4 10*3/uL Normal 4.4-11.0 [facility] Comment on above: Performed By: #### L 100.0100, L500.2500 ####[facility] [address] [place], [address] Carbon dioxide, total [Moles /volume] in Central venous bloodOrdered By: Mellisa Cabrera on 03-10-2025 CO2 [Moles/Vol] 22.8 mmol/L 21.0-32.0 [facility] Chloride assayOrdered By: Amparo Cabrera on 03-10-2025 Chloride [Moles/Vol] 106 mmol/L 98-108 [facility] Emergency Department Summary on 03-10-2025 Emergency Department Summary Normal [facility] Eosinophil percentageOrdered By: Mellisa Cabrera on 03-10-2025 Eosinophils/100 WBC (Bld) 3.8 % 0-5 [facility] Epithelial cells.squamous LM Ql (Urine sed)Ordered By: Mellisa Cabrera on 03-10-2025 Epithelial cells.squamous LM.HPF (Urine sed) [#/Area] 0 /[HPF] 5-10 [facility] Erythrocyte distribution wid th (RBC) [Ratio]Ordered By: Mellisa Cabrera on 03-10-2025 Erythrocyte distribution width (RBC) [Entitic vol] 42.3 fL 35.1-43.9 [facility] Erythrocyte distribution wid th ratioOrdered By: Mellisa Cabrera on 03-10-2025 Erythrocyte distribution width (RBC) [Ratio] 12.8 % 11.6-14.6 [facility] Erythrocyte distribution wid th standard deviationOrdered By: Mellisa Cabrera on 03-10-2025 Erythrocyte distribution width (RBC) [Ratio] 42.3 fl 35.1-43.9 [facility] Estimation of creatinine julio cesar aranceOrdered By: Mellisa Cabrera on 03-10-2025 Estimated Creatinine Clearance Calc 51.73 ml/min 50-250 [facility] GFR/1.73 sq M.predicted kwame g non-blacks MDRD (S/P/Bld) [Vol rate/Area]Ordered By: Mellisa Cabrera on 03-10-2025 Estimated GFR (MDRD) Non-Af Amer 62 >60 [facility] Comment on above: mL/min/1.73m2 CKD-EP I Creatinine Equation (2020) Glomerular filtration rate ( GFR) estimation/1.73 sq m using serum, plasma, or whole bOrdered By: Mellisa Cabrera on 03-10-2025 GFR/1.73 sq M.predicted among non-blacks MDRD (S/P/Bld) [Vol rate/Area] 62 mL/min/{1.73_m2} >60 [facility] Comment on above: mL/min/1.73m2 CKD-EP I Creatinine Equation (2020) Glucose Ql (U)Ordered By: Amparo Cabrera on 03-10-2025 Urine Glucose (UA) Normal mg/dl Normal [facility] HIP, UNI W/ Pelvis 2-3 Views on 03-10-2025 HIP, UNI W/ Pelvis 2-3 Views Normal [facility] Hematocrit Auto (Bld) [Volum e fraction]Ordered By: Mellisa Cabrera on 03-10-2025 Hematocrit (Bld) [Volume fraction] 32.2 % Low 37-47 [facility] Hemoglobin measurementOrdere d By: Mellisa Cabrera on 03-10-2025 Hemoglobin (Bld) [Mass/Vol] 11.0 g/dL Low 12.0-15.0 [facility] Immature granulocytes/100 WB C Auto (Bld)Ordered By: Mellisa Cabrera on 03-10-2025 Immature granulocytes/100 WBC (Bld) 0.300 % 0.0-0.9 [facility] Comment on above: IG% - Immature Granu locytes (promyelocytes, myelocytes and metamyelocytes) > 1% indicates that a LEFT SHIFT is Present. Ketones Test strip Ql (U)Ord ered By: Mellisa Cabrera on 03-10-2025 Ketones Ql (U) Negative Negative [facility] Lymphocytes Auto (Unsp spec) [#/Vol]Ordered By: Mellisa Cabrera on 03-10-2025 Lymphocytes (Bld) [#/Vol] 1.61 10*3/uL 0.83-4.51 [facility] Lymphocytes/100 WBC Auto (Un sp spec)Ordered By: Mellisa Cabrera on 03-10-2025 Lymphocytes/100 WBC (Bld) 25.4 % 19-41 [facility] MCV (mean corpuscular volume ) determinationOrdered By: Mellisa Cabrera on 03-10-2025 MCV (RBC) [Entitic vol] 90.4 fL 81-99 [facility] Mean corpuscular hemoglobin (MCH) determinationOrdered By: Mellisa Cabrera on 03-10-2025 MCH (RBC) [Entitic mass] 30.9 pg 27.0-32.0 [facility] Mean corpuscular hemoglobin concentration (MCHC) determinationOrdered By: Mellisa Cabrera on 03-10-2025 MCHC (RBC) [Mass/Vol] 34.2 g/dL 32-36 [facility] Mean platelet volume determi nationOrdered By: Mellisa Cabrera on 03-10-2025 Platelet mean volume (Bld) [Entitic vol] 11.0 fL 6.2-12.0 [facility] Microscopic analysis of urin e for red blood cells (RBC)Ordered By: Mellisa Cabrera on 03-10-2025 Microscopic analysis of urine for red blood cells (RBC) 0 SEEN /hpf 0-5 [facility] Urine RBC 0 SEEN /hpf 0-5 [facility] Monocyte percentageOrdered B y: Mellisa Cabrera on 03-10-2025 Monocytes/100 WBC (Bld) 8.3 % 0-10 [facility] Mucus LM Ql (Urine sed)Order ed By: Mellisa Cabrera on 03-10-2025 Mucus Ql (Urine sed) 0 SEEN /hpf [facility] Neutrophil percentageOrdered By: Mellisa Cabrera on 03-10-2025 Neutrophils/100 WBC (Bld) 61.9 % 47-70 [facility] Nitrite Test strip Ql (U)Ord ered By: Mellisa Cabrera on 03-10-2025 Nitrite Ql (U) Negative Negative [facility] Nucleated red blood cell per centageOrdered By: Mellisa Cabrera on 03-10-2025 Nucleated RBC/100 WBC (Bld) [Ratio] 0 % 0-5 [facility] Platelet countOrdered By: Amparo Cabrera on 03-10-2025 Platelets (Bld) [#/Vol] 148 10*3/uL Low 150-450 [facility] Potassium (Unsp spec) [Mass/ Vol]Ordered By: Mellisa Cabrera on 03-10-2025 Potassium [Moles/Vol] 4.3 mmol/L 3.3-5.1 [facility] Potassium measurement (mass/ volume)Ordered By: Mellisa Cabrera on 03-10-2025 Potassium (Unsp spec) [Mass/Vol] 4.3 mmol/L 3.3-5.1 [facility] Protein Test strip Ql (U)Ord ered By: Mellisa Cabrera on 03-10-2025 Protein Ql (U) 15 mg/dl High Negative [facility] RBC Auto (Bld) [#/Vol]Ordere d By: Mellisa Cabrera on 03-10-2025 RBC (Bld) [#/Vol] 3.56 10*6/uL Low 4.2-5.4 [facility] Serum creatinine measurement (mass/volume)Ordered By: Mellisa Cabrera on 03-10-2025 Creatinine [Mass/Vol] 0.97 mg/dL 0.70-1.20 [facility] Serum glucose measurement (m ass/volume)Ordered By: Mellisa Cabrera on 03-10-2025 Glucose [Mass/Vol] 139 mg/dL High 70-99 [facility] Serum or plasma calcium loco urement (mass/volume)Ordered By: Mellisa Cabrera on 03-10-2025 Calcium [Mass/Vol] 9.1 mg/dL 7.6-11.0 [facility] Serum or plasma urea nitroge n measurement (mass/volume)Ordered By: Mellisa Cabrera on 03-10-2025 Urea nitrogen [Mass/Vol] 20 mg/dL High 4-19 [facility] Sodium levelOrdered By: Mellisa Cabrera on 03-10-2025 Sodium [Moles/Vol] 140 mmol/L 133-145 [facility] Squamous epithelial cells de tection in urine sediment by light microscopyOrdered By: Mellisa Cabrera on 03-10-2025 Epithelial cells.squamous LM Ql (Urine sed) 0 SEEN /hpf 5-10 [facility] Urinalysis, Completeon 03-10 WBC 0-5 SEEN Normal 0-5 [facility] Comment on above: Order Comment: COLLE CTOR TO SPECIFY Performed By: #### L 400.0001 ####[facility] [address] [place], [address] BACTERIA 0 SEEN Normal None Seen [facility] Comment on above: Order Comment: HUNTER CTOR TO SPECIFY Performed By: #### L 400.0001 ####[facility] [address] [place], [address] EPI,SQUAMOUS 0 SEEN Normal 5-10 [facility] Comment on above: Order Comment: HUNTER CTOR TO SPECIFY Performed By: #### L 400.0001 ####[facility] [address] [place], [address] Mucus Ql (Urine sed) 0 SEEN Normal [facility] Comment on above: Order Comment: HUNTER CTOR TO SPECIFY Performed By: #### L 400.0001 ####[facility] [address] [place], [address] RBC 0 SEEN Normal 0-5 [facility] Comment on above: Order Comment: HUNTER CTOR TO SPECIFY Performed By: #### L 400.0001 ####[facility] [address] [place], [address] Urine blood detectionOrdered By: Mellisa Cabrera on 03-10-2025 Urine Occult Blood Negative Negative [facility] Urine clarityOrdered By: Pastora Cabrera on 03-10-2025 Clarity (U) Clear Clear [facility] Urine color determinationOrd ered By: Mellisa Cabrera on 03-10-2025 Color (U) Yellow Yellow [facility] Urine glucose detectionOrder ed By: Mellisa Cabrera on 03-10-2025 Glucose Ql (U) Normal mg/dl Normal [facility] Urine leukocyte esterase det ection by dipstickOrdered By: Mellisa Cabrera on 03-10-2025 Leukocyte esterase Test strip Ql (U) 500 /ul High Negative [facility] Urine pHOrdered By: Mellisa peng on 03-10-2025 pH (U) 6.0 [pH] 5.0 - 8.0 [facility] Urine sediment bacteria coun t by microscopy (number/high power field)Ordered By: Mellisa Cabrera on 03-10-2025 Bacteria LM.HPF (Urine sed) [#/Area] 0 /[HPF] None Seen [facility] Urine specific gravity measu rementOrdered By: Mellisa Cabrera on 03-10-2025 Specific gravity (U) [Rel density] 1.015 1.002-1.03 0 [facility] Urine urobilinogen measureme ntOrdered By: Mellisa Cabrera on 03-10-2025 Urobilinogen Ql (U) Normal mg/dl Normal [facility] Urobilinogen Ql (U)Ordered B y: Mellisa Deborah on 03-10-2025 Urine Urobilinogen Normal mg/dl Normal [facility] White blood cell (WBC) count Ordered By: Mellisa Cabrera on 03-10-2025 WBC (Bld) [#/Vol] 6.4 10*3/uL 4.4-11.0 [facility] White blood cell countOrdere d By: Mellisa Cabrera on 03-10-2025 Urine WBC 0-5 SEEN /hpf 0-5 [facility] White blood cell count 0-5 SEEN /hpf 0-5 [facility] CNPNon 03-09-2025 NIRMALAN Telephone (EDWARD) MANSI CARO ([id number]) 1955 F Date Time Provider Department 03/09/25 LEYLA MURPHY During your visit today, we recorded the following information about you: Dipti Stewart 03/09/2025 12:16 PM Signed Spouse called inquiring status of RX for valbenazine (INGREZZA) 40 mg capsule. Informed Spouse that order was signed on 02/27/2025. Order has been faxed to [facility]: [phone]. Spouse provided phone number for pharmacy ([phone]) to follow up on this request. Dipti Leyla Boggs MD 03/12/2025 7:42 AM Signed Notified by [facility] spec pharmacy Darren is not on her formulary. Going to [...] allergic reaction and is willing to rechallenge [facility] RN Date Reviewed: 02/27/2025 Reviewed by: Leyla [...] Encounter Status:Closed by DIPTI STEWART on 03/09/[facility] CNPN Telephone (AKMRI) MANSI CARO ([id number]) 1955 F Date Time Provider Department [facility] your visit today, we recorded [...] broken or abandoned leads. Thank you, Kalen Hall([place])(MR),[facility] [place] [facility] Leyla Murphy MD 03/02/2025 [...] allergic reaction and is willing to rechallenge [facility] RN Date Reviewed: 02/27/2025 Reviewed by: Leyla Murphy MD - Fully Assessed Primary Visit Diagnosis:Presence of cardiac pacemaker [Z95.0] Order(s):XR CHEST 2V FRONTAL/LAT [2953981] Order #: [id number] FUTURE Prescriptions as of 03/02/2025 - Acetaminophen [...] 02/21/2015 Parkinsonism (HCC) [G20.C] 06/25/2022 Spastic hemiparesis ([facility]) [G81.10] 05/13/2023 Encounter Status:Closed by KALEN CASEY on 03/01/25 [facility] CNPN Telephone (AKMRI) MANSI CARO ([id number]) 1955 F Date Time Provider Department 03/01/25 [...] allergic reaction and is willing to rechallenge [facility] RN Date Reviewed: 02/27/2025 Reviewed by: Lelya Murphy MD - Fully Assessed Prescriptions as [...] Encounter Status:Closed by KALEN CASEY on 03/01/25 [facility] CNOVdevon 02-27-2025 CNOV Office Visit (NRMDN) MANSI CARO ([id number]) 1955 F Date Time Provider Department 02/27/25 3:30 PM LEYLA MURPHY NRMDN During your visit today, we recorded the following information about you: Weight 62 kg Leyla Murphy MD 02/27/2025 4:44 PM Addendum It was a pleasure to see you today. We addressed the following diagnoses: Essential tremor (primary encounter diagnosis) Dyskinesia, tardive My recommendations are as follows: - Start taking Ingrezza 40 mg daily for mouth movements; prescription sent to [facility]. Once this is controlled [...] or you can send a message through [employer]. You can also now schedule and select appointments through [employer]. MD Jeffrey Marquez Kristin, MD 02/28/2025 9:12 AM Signed [facility] - FOLLOW UP EVALUATION The patient consented to the use of ambient [employer] software for draft documentation of the visit consistent with [facility]?s Notice of Privacy Practices. Jesus Manuel Freitas DO, [address] [facility] [address] Dear Jesus Manuel Freitas DO, DO: I [...] that cannabis use during a visit to [place] temporarily alleviated her symptoms. She reports difficulty [...] activities: Yes (more content not included)... Normal [facility] Valerie 02-27-2025 CNPN Telephone (NRMDN) MANSI CARO ([id number]) 1955 F Date Time Provider Department 02/27/25 LEYLA MURPHY During your visit today, we recorded the following information about you: Dipti Stewart 02/27/2025 5:05 PM Addendum Patient's spouse reports that Patient has a [employer] implant (Cardiac Resynchronization Therapy with Defibrillator). Per [...] allergic reaction and is willing to rechallenge [facility] RN Date Reviewed: 02/27/2025 Reviewed by: Leyla [...] Status:Closed by DIPTI STEWART on 02/27/25 Normal [facility] Gastroenterology Visit Repor ton 02-14-2025 Gastroenterology Visit Report Normal [facility] Presser Hand Office Visit Reporton 02-13-2025 Presser Hand Office Visit Report Normal [facility] 36on 01-28-2025 36 S: Patient's spoke with [facility] nurse regarding medication concern B: Onset of [...] to answer question Protocols used: [facility]ication [facility] Erythropoietinon 01-24-2025 ERYTHROPOIETIN 10.1 mIU/mL Normal 2.6-18.5 [facility] Comment on above: Result Comment: Giraffic DxI 800 Immunoassay SystemValues obtained with different assay methods or kits cannotbe used interchangeably. Results cannot be interpreted asabsolute evidence of the presence or absence of malignantdisease.Performed at: [facility] [id number] Director: Bulmaro Nesbitt PhD, Phone: [phone] Performed By: #### L 503.6030, L500.2500, L100.9950, L3100.1350, L503.6550, L100.0100 ####[facility] [address] [place], [address] Oncology Visit Reporton Oncology Visit Report Normal [facility] Absolute lymphocyte countOrd ered By: Luigi Tinoco on 01-22-2025 Lymphocytes Auto (Unsp spec) [#/Vol] 2.11 10*3/uL 0.83-4.51 [facility] Absolute neutrophil countOrd ered By: Luigi Tinoco on 01-22-2025 Neutrophils (Bld) [#/Vol] 4.9 10*3/uL 2.0-7.7 [facility] Automated lymphocyte count a s percentage of total leukocytesOrdered By: Luigi Tinoco on 01-22-2025 Lymphocytes/100 WBC Auto (Unsp spec) 27.6 % 19-41 [facility] BUN/creatinine ratioOrdered By: Luigi Tinoco on 01-22-2025 Urea nitrogen/Creatinine [Mass ratio] 16.9 mg/mg 10-20 [facility] Basic Metabolic Profile (BMP )on 01-22-2025 Anion gap [Moles/Vol] 9 mmol/L Normal 5-15 [facility] Comment on above: Performed By: #### L 503.6030, L500.2500, L100.9950, L3100.1350, L503.6550, L100.0100 ####[facility] [address] [place], [address] BUN/CRE 16.9 RATIO Normal 10-20 [facility] Comment on above: Performed By: #### L 503.6030, L500.2500, L100.9950, L3100.1350, L503.6550, L100.0100 ####[facility] [address] [place], [address] Calcium [Mass/Vol] 9.1 mg/dL Normal 7.6-11.0 [facility] Comment on above: Performed By: #### L 503.6030, L500.2500, L100.9950, L3100.1350, L503.6550, L100.0100 ####[facility] [address] [place], [address] Chloride [Moles/Vol] 103 mmol/L Normal 96-108 [facility] Comment on above: Performed By: #### L 503.6030, L500.2500, L100.9950, L3100.1350, L503.6550, L100.0100 ####[facility] [address] [place], [address] CO2 [Moles/Vol] 27.6 mmol/L Normal 22.0-29.0 [facility] Comment on above: Performed By: #### L 503.6030, L500.2500, L100.9950, L3100.1350, L503.6550, L100.0100 ####[facility] [address] [place], [address] Creatinine [Mass/Vol] 1.17 mg/dL Normal 0.70-1.20 [facility] Comment on above: Performed By: #### L 503.6030, L500.2500, L100.9950, L3100.1350, L503.6550, L100.0100 ####[facility] [address] [place], [address] ECRCL 40.81 ml/min Low 50-250 [facility] Comment on above: Performed By: #### L 503.6030, L500.2500, L100.9950, L3100.1350, L503.6550, L100.0100 ####[facility] [address] [place], [address] GFR/1.73 sq M.predicted among non-blacks MDRD (S/P/Bld) [Vol rate/Area] 50 mL/min/{1.73_m2} Low >60 [facility] Comment on above: Result Comment: mL/m in/1.73m2 CKD-EPI Creatinine Equation (2020) Performed By: #### L 503.6030, L500.2500, L100.9950, L3100.1350, L503.6550, L100.0100 ####[facility] [address] [place], [address] Glucose [Mass/Vol] 207 mg/dL High 70-99 [facility] Comment on above: Performed By: #### L 503.6030, L500.2500, L100.9950, L3100.1350, L503.6550, L100.0100 ####[facility] [address] [place], [address] Potassium [Moles/Vol] 4.3 mmol/L Normal 3.3-5.1 [facility] Comment on above: Performed By: #### L 503.6030, L500.2500, L100.9950, L3100.1350, L503.6550, L100.0100 ####[facility] [address] [place], [address] Sodium [Moles/Vol] 140 mmol/L Normal 133-145 [facility] Comment on above: Performed By: #### L 503.6030, L500.2500, L100.9950, L3100.1350, L503.6550, L100.0100 ####[facility] [address] [place], [address] Urea nitrogen [Mass/Vol] 20 mg/dL High 4-19 [facility] Comment on above: Performed By: #### L 503.6030, L500.2500, L100.9950, L3100.1350, L503.6550, L100.0100 ####[facility] [address] [place], [address] Basophil percentageOrdered B y: Luigi Earnest on 01-22-2025 Basophils/100 WBC (Bld) 0.5 % 0-1 [facility] CBC W/Diff, Automatedon 030 Absolute Lymph 2.11 X10 3/uL Normal 0.83-4.51 [facility] Comment on above: Performed By: #### L 503.6030, L500.2500, L100.9950, L3100.1350, L503.6550, L100.0100 ####[facility] [address] [place], [address] Absolute Neut 4.9 X10 3/uL Normal 2.0-7.7 [facility] Comment on above: Performed By: #### L 503.6030, L500.2500, L100.9950, L3100.1350, L503.6550, L100.0100 ####[facility] [address] [place], [address] Basophils/100 WBC (Bld) 0.5 % Normal 0-1 [facility] Comment on above: Performed By: #### L 503.6030, L500.2500, L100.9950, L3100.1350, L503.6550, L100.0100 ####[facility] [address] [place], [address] Eosinophils/100 WBC (Bld) 1.3 % Normal 0-5 [facility] Comment on above: Performed By: #### L 503.6030, L500.2500, L100.9950, L3100.1350, L503.6550, L100.0100 ####[facility] [address] [place], [address] Erythrocyte distribution width (RBC) [Ratio] 12.5 % Normal 11.6-14.6 [facility] Comment on above: Performed By: #### L 503.6030, L500.2500, L100.9950, L3100.1350, L503.6550, L100.0100 ####[facility] [address] [place], [address] Hematocrit (Bld) [Volume fraction] 36.8 % Low 37-47 [facility] Comment on above: Performed By: #### L 503.6030, L500.2500, L100.9950, L3100.1350, L503.6550, L100.0100 ####[facility] [address] [place], [address] Hemoglobin (Bld) [Mass/Vol] 11.8 g/dL Low 12.0-15.0 [facility] Comment on above: Performed By: #### L 503.6030, L500.2500, L100.9950, L3100.1350, L503.6550, L100.0100 ####[facility] [address] [place], [address] IG% 0.400 Normal 0.0-0.9 [facility] Comment on above: Result Comment: IG% - Immature Granulocytes (promyelocytes, myelocytes andmetamyelocytes) > 1% indicates that a LEFT SHIFT is Present. Performed By: #### L 503.6030, L500.2500, L100.9950, L3100.1350, L503.6550, L100.0100 ####[facility] [address] [place], [address] Lymphocytes/100 WBC (Bld) 27.6 % Normal 19-41 [facility] Comment on above: Performed By: #### L 503.6030, L500.2500, L100.9950, L3100.1350, L503.6550, L100.0100 ####[facility] [address] [place], [address] MCH (RBC) [Entitic mass] 30.3 pg Normal 27.0-32.0 [facility] Comment on above: Performed By: #### L 503.6030, L500.2500, L100.9950, L3100.1350, L503.6550, L100.0100 ####[facility] [address] [place], [address] MCHC (RBC) [Mass/Vol] 32.1 g/dL Normal 32-36 [facility] Comment on above: Performed By: #### L 503.6030, L500.2500, L100.9950, L3100.1350, L503.6550, L100.0100 ####[facility] [address] [place], [address] MCV (RBC) [Entitic vol] 94.4 fL Normal 81-99 [facility] Comment on above: Performed By: #### L 503.6030, L500.2500, L100.9950, L3100.1350, L503.6550, L100.0100 ####[facility] [address] [place], [address] Monocytes/100 WBC (Bld) 6.0 % Normal 0-10 [facility] Comment on above: Performed By: #### L 503.6030, L500.2500, L100.9950, L3100.1350, L503.6550, L100.0100 ####[facility] [address] [place], [address] Neutrophils/100 WBC (Bld) 64.2 % Normal 47-70 [facility] Comment on above: Performed By: #### L 503.6030, L500.2500, L100.9950, L3100.1350, L503.6550, L100.0100 ####[facility] [address] [place], [address] Nucleated RBC (Bld) [#/Vol] 0 10*3/uL Normal 0-5 [facility] Comment on above: Performed By: #### L 503.6030, L500.2500, L100.9950, L3100.1350, L503.6550, L100.0100 ####[facility] [address] [place], [address] Platelet mean volume (Bld) [Entitic vol] 10.8 fL Normal 6.2-12.0 [facility] Comment on above: Performed By: #### L 503.6030, L500.2500, L100.9950, L3100.1350, L503.6550, L100.0100 ####[facility] [address] [place], [address] Platelets (Bld) [#/Vol] 143 10*3/uL Low 150-450 [facility] Comment on above: Performed By: #### L 503.6030, L500.2500, L100.9950, L3100.1350, L503.6550, L100.0100 ####[facility] [address] [place], [address] RBC (Bld) [#/Vol] 3.90 10*6/uL Low 4.2-5.4 [facility] Comment on above: Performed By: #### L 503.6030, L500.2500, L100.9950, L3100.1350, L503.6550, L100.0100 ####[facility] [address] [place], [address] RDW SD 43.6 fl Normal 35.1-43.9 [facility] Comment on above: Performed By: #### L 503.6030, L500.2500, L100.9950, L3100.1350, L503.6550, L100.0100 ####[facility] [address] [place], [address] WBC (Bld) [#/Vol] 7.7 10*3/uL Normal 4.4-11.0 [facility] Comment on above: Performed By: #### L 503.6030, L500.2500, L100.9950, L3100.1350, L503.6550, L100.0100 ####[facility] [address] [place], [place], [address] Calculated total iron bindin g capacityOrdered By: Luigi Tinoco on 01-22-2025 Total Iron Binding Capacity 248 ug/dL Low 250-450 [facility] Carbon dioxide measurementOr dered By: Luigi Tinoco on 01-22-2025 CO2 [Moles/Vol] 27.6 mmol/L 22.0-29.0 [facility] Chloride measurementOrdered By: Luigi Tinoco on 03-03-2025 Chloride [Moles/Vol] 103 mmol/L 96-108 [facility] Eosinophil percentageOrdered By: Luigi Tinoco on 01-22-2025 Eosinophils/100 WBC (Bld) 1.3 % 0-5 [facility] Erythrocyte distribution wid th (RBC) [Ratio]Ordered By: Luigi Tinoco on 01-22-2025 Erythrocyte distribution width (RBC) [Entitic vol] 43.6 fL 35.1-43.9 [facility] Erythrocyte distribution wid th ratioOrdered By: [facility] on 01-22-2025 Erythrocyte distribution width (RBC) [Ratio] 12.5 % 11.6-14.6 [facility] Erythrocyte distribution wid th standard deviationOrdered By: [facility] on 01-22-2025 Erythrocyte distribution width (RBC) [Ratio] 43.6 fl 35.1-43.9 [facility] Erythropoietin (EPO) QnOrder ed By: Luigi Tinoco on 01-22-2025 Erythropoietin 10.1 mIU/mL 2.6-18.5 [facility] Comment on above: [employer] el DxI 800 Immunoassay SystemValues obtained with different assay methods or kits cannotbe used interchangeably. Results cannot be interpreted asabsolute evidence of the presence or absence of malignantdisease.Performed at: [facility] [id number] Director: Bulmaro Nesbitt PhD, Phone: [phone] Estimation of creatinine julio cesar aranceOrdered By: Luigi Tinoco on 01-22-2025 Estimated Creatinine Clearance Calc 40.81 ml/min Low 50-250 [facility] Ferritinon 01-22-2025 Ferritin [Mass/Vol] 95 ng/mL Normal 22-378 [facility] Comment on above: Performed By: #### L 503.6030, L500.2500, L100.9950, L3100.1350, L503.6550, L100.0100 ####[facility] [address] [place], [address] GFR/1.73 sq M.predicted kwame g non-blacks MDRD (S/P/Bld) [Vol rate/Area]Ordered By: Luigi Tinoco on 01-22-2025 Estimated GFR (MDRD) Non-Af Amer 50 Low >60 [facility] Comment on above: mL/min/1.73m2 CKD-EP I Creatinine Equation (2020) Glomerular filtration rate ( GFR) estimation/1.73 sq m using serum, plasma, or whole bOrdered By: Luigi Tinoco on 01-22-2025 GFR/1.73 sq M.predicted among non-blacks MDRD (S/P/Bld) [Vol rate/Area] 50 mL/min/{1.73_m2} Low >60 [facility] Comment on above: mL/min/1.73m2 CKD-EP I Creatinine Equation (2020) Hematocrit Auto (Bld) [Volum e fraction]Ordered By: Luigi Tinoco on 01-22-2025 Hematocrit (Bld) [Volume fraction] 36.8 % Low 37-47 [facility] Hemoglobin (Reticulocytes) [ Entitic mass]Ordered By: Luigi Tinoco on 01-22-2025 Reticulocyte Hemoglobin Equivalent 35.1 pg High 30-35 [facility] Hemoglobin measurementOrdere d By: Luigi Tinoco on 01-22-2025 Hemoglobin (Bld) [Mass/Vol] 11.8 g/dL Low 12.0-15.0 [facility] Immature granulocytes/100 WB C Auto (Bld)Ordered By: Luigi Tinoco on 01-22-2025 Immature granulocytes/100 WBC (Bld) 0.400 % 0.0-0.9 [facility] Comment on above: IG% - Immature Granu locytes (promyelocytes, myelocytes and metamyelocytes) > 1% indicates that a LEFT SHIFT is Present. Immature reticulocyte fracti onOrdered By: Luigi Tinoco on 01-22-2025 Immature Reticulocyte Fraction 8.80 % 3.00-15.90 [facility] Iron (Unsp spec) [Mass/Mass] Ordered By: Luigi Tinoco on 01-22-2025 Iron [Mass/Vol] 74 ug/dL 50-170 [facility] Iron measurement (mass/mass) Ordered By: Luigi Tinoco on 01-22-2025 Iron (Unsp spec) [Mass/Mass] 74 ug/dL 50-170 [facility] Iron saturation [Mass fracti on]Ordered By: Luigi Tinoco on 01-22-2025 Iron Saturation 30.0 % 15.0-55.0 [facility] Iron+Iron Binding Capacityon 01-22-2025 Iron [Mass/Vol] 74 ug/dL Normal 50-170 [facility] Comment on above: Performed By: #### L 503.6030, L500.2500, L100.9950, L3100.1350, L503.6550, L100.0100 ####[facility] [address] [place], [address] IRON SATURATION 30.0 Normal 15.0-55.0 [facility] Comment on above: Performed By: #### L 503.6030, L500.2500, L100.9950, L3100.1350, L503.6550, L100.0100 ####[facility] [address] [place], [address] TIBC 248 ug/dL Low 250-450 [facility] Comment on above: Performed By: #### L 503.6030, L500.2500, L100.9950, L3100.1350, L503.6550, L100.0100 ####[facility] [address] [place], [address] UIBC 174 ug/dL Low 228-428 [facility] Comment on above: Performed By: #### L 503.6030, L500.2500, L100.9950, L3100.1350, L503.6550, L100.0100 ####[facility] [address] [place], [address] Lymphocytes Auto (Unsp spec) [#/Vol]Ordered By: Luigi Tinoco on 01-22-2025 Lymphocytes (Bld) [#/Vol] 2.11 10*3/uL 0.83-4.51 [facility] Lymphocytes/100 WBC Auto (Un sp spec)Ordered By: Luigi Tinoco on 01-22-2025 Lymphocytes/100 WBC (Bld) 27.6 % 19-41 [facility] MCV (mean corpuscular volume ) determinationOrdered By: Luigi Tinoco on 01-22-2025 MCV (RBC) [Entitic vol] 94.4 fL 81-99 [facility] Mean corpuscular hemoglobin (MCH) determinationOrdered By: Luigi Tinoco on 01-22-2025 MCH (RBC) [Entitic mass] 30.3 pg 27.0-32.0 [facility] Mean corpuscular hemoglobin concentration (MCHC) determinationOrdered By: Luigi Tinoco on 01-22-2025 MCHC (RBC) [Mass/Vol] 32.1 g/dL 32-36 [facility] Mean platelet volume determi nationOrdered By: Luigi Tinoco on 01-22-2025 Platelet mean volume (Bld) [Entitic vol] 10.8 fL 6.2-12.0 [facility] Monocyte percentageOrdered B y: Luigi Tinoco on 01-22-2025 Monocytes/100 WBC (Bld) 6.0 % 0-10 [facility] Neutrophil percentageOrdered By: [facility] on 01-22-2025 Neutrophils/100 WBC (Bld) 64.2 % 47-70 [facility] No Panel InformationOrdered By: Luigi Tinoco on 01-22-2025 Unsaturated Iron Binding Capacity 174 ug/dL Low 228-428 [facility] 174 ug/dL Low 228-428 [facility] Nucleated red blood cell per centageOrdered By: Luigi Tinoco on 01-22-2025 Nucleated RBC/100 WBC (Bld) [Ratio] 0 % 0-5 [facility] Platelet countOrdered By: Chase Tinoco on 01-22-2025 Platelets (Bld) [#/Vol] 143 10*3/uL Low 150-450 [facility] RBC Auto (Bld) [#/Vol]Ordere d By: Luigi Tinoco on 01-22-2025 RBC (Bld) [#/Vol] 3.90 10*6/uL Low 4.2-5.4 [facility] Retic Panelon 01-22-2025 IM RET FRACTION 8.80 Normal 3.00-15.90 [facility] Comment on above: Performed By: #### L 503.6030, L500.2500, L100.9950, L3100.1350, L503.6550, L100.0100 ####[facility] [address] [place], [address] RET-HE 35.1 pg High 30-35 [facility] Comment on above: Performed By: #### L 503.6030, L500.2500, L100.9950, L3100.1350, L503.6550, L100.0100 ####[facility] [address] [place], [address] Retic Count 1.22 Normal 0.5-1.5 [facility] Comment on above: Performed By: #### L 503.6030, L500.2500, L100.9950, L3100.1350, L503.6550, L100.0100 ####[facility] [address] [place], [address] Reticulocyte hemoglobin equi valent (RET-He) measurementOrdered By: Luigi Tinoco on 01-22-2025 Hemoglobin (Reticulocytes) [Entitic mass] 35.1 pg High 30-35 [facility] Reticulocytes Auto (Bld) [#/ Vol]Ordered By: Luigi Tinoco on 01-22-2025 Reticulocyte Count 1.22 % 0.5-1.5 [facility] Reticulocytes/100 RBC (Bld) 1.22 % 0.5-1.5 [facility] Serum creatinine measurement (mass/volume)Ordered By: Luigi Tinoco on 01-22-2025 Creatinine [Mass/Vol] 1.17 mg/dL 0.70-1.20 [facility] Serum glucose measurement (m ass/volume)Ordered By: Luigi Tinoco on 01-22-2025 Glucose [Mass/Vol] 207 mg/dL High 70-99 [facility] Serum or plasma anion gap de termination (moles/volume)Ordered By: Luigi Tinoco on 01-22-2025 Anion gap [Moles/Vol] 9 mmol/L 5-15 [facility] Serum or plasma calcium loco urement (mass/volume)Ordered By: Luigi Tinoco on 01-22-2025 Calcium [Mass/Vol] 9.1 mg/dL 7.6-11.0 [facility] Serum or plasma erythropoiet in (EPO) measurement (units/volume)Ordered By: Luigi Tinoco on 01-22-2025 Erythropoietin (EPO) Qn 10.1 mIU/mL 2.6-18.5 [facility] Comment on above: [employer] el DxI 800 Immunoassay SystemValues obtained with different assay methods or kits cannotbe used interchangeably. Results cannot be interpreted asabsolute evidence of the presence or absence of malignantdisease.Performed at: [facility] [id number] Director: Bulmaro Nesbitt PhD, Phone: [phone] Serum or plasma ferritin donald surement (mass/volume)Ordered By: Luigi Tinoco on 01-22-2025 Ferritin [Mass/Vol] 95 ng/mL 22-378 [facility] Serum or plasma iron saturat ion measurement (mass fraction)Ordered By: Luigi Tinoco on 01-22-2025 Iron saturation [Mass fraction] 30.0 % 15.0-55.0 [facility] Serum or plasma potassium me asurementOrdered By: Luigi Tinoco on 01-22-2025 Potassium [Moles/Vol] 4.3 mmol/L 3.3-5.1 [facility] Serum or plasma sodium measu rement (moles/volume)Ordered By: Luigi Tinoco on 01-22-2025 Sodium [Moles/Vol] 140 mmol/L 133-145 [facility] Serum or plasma urea nitroge n measurement (mass/volume)Ordered By: Luigi Tinoco on 01-22-2025 Urea nitrogen [Mass/Vol] 20 mg/dL High 4-19 [facility] White blood cell (WBC) count Ordered By: Luigi Tinoco on 01-22-2025 WBC (Bld) [#/Vol] 7.7 10*3/uL 4.4-11.0 [facility] 01-19-2025 CNPN Telephone (NRMDN) GORDOMANSI Hema ([id number]) 1955 F Date Time Provider Department 01/19/25 LEYLA MURPHY During your visit today, we [...] has been notified of appt change via [employer] message. Dipti Stewart Allergies As of Date: 01/19/2025 Noted Allergy Reaction LIPITOR (ATORVASTATIN CALCIUM) 04/03/2010 Comments: Heart racing; 07/04/10 patient states that she had started a lot of medication at this time and the she did not have a true allergic reaction and is willing to rechallenge [facility] RN Date Reviewed: 05/17/2024 Reviewed by: Yadira [...] Encounter Status:Closed by DIPTI STEWART on 01/19/25 Normal [facility] CT CHEST WO IVCONon 01-19-[address] CHEST WO IVCON * * *Final Report* * * DATE OF EXAM: Jan 19 2025 10:24AM [facility] 0541 - CT CHEST WO IVCON / [...] significantly enlarged lymph nodes in the chest. 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: MARC Transcribe Date/Time: Jan 23 2025 7:44P Dictated by : MARIANELA WILSON MD This examination was interpreted and the report reviewed and electronically signed by: MARIANELA WILSON MD on Jan 23 2025 7:49PM EST [id number] Normal [facility] Cardiology Visit Reporton Cardiology Visit Report Normal [facility] MRA Neck WITH and W/O Contra ston 12-22-2024 MRA Neck WITH and W/O Contrast Normal [facility] Pelvic (Non )on 11-24 Pelvic (Non ) Normal [facility] Calprotectin, Stoolon [address] 190 ug/g Abnormal 0-120 [facility] Comment on above: Result Comment: Conc entration Interpretation Follow-Up< 5 - 50 ug/g Normal None>50 -120 ug/g Borderline Re-evaluate in 4-6 weeks >120 ug/g Abnormal Repeat as clinically indicatedPerformed at: [employer] [address] [id number] Director: Stanton Vargas MD, Phone: [phone] Performed By: #### L 7000.0700, L7000.0750 ####[facility] [address] [place], [place], [id number] MR/BMS.BVSon 12-19-2024 MR/BMS.BVS Normal [facility] L7000.0750on 12-18-2024 P ELASTASE,FECA 416 Normal >200 [facility] Comment on above: Result Comment: Resu lt Units: ug Elast./g Severe Pancreatic Insufficiency: <100 Moderate Pancreatic Insufficiency: 100 - 200 Normal: >200Performed at: [employer] [address] [id number] Director: Stanton Vargas MD, Phone: [phone] Performed By: #### L 7000.0700, L7000.0750 ####[facility] [address] [place], [place], [id number] 36on 12-16-2024 36 S: Patient spoke solomon h CAC nurse regarding abdominal pain B: Onset of symptoms/concern few months A: Patient's concerned about 05/31 constant lower abdominal pain. He advises she was dx with ischemic colitis in June. They deny fever, deny n/v/d, deny constipation. He advises oxycodone worked but GI will not give them anymore. MRA scheduled first week of Dec. He states they saw an CLERK TYPIST earlier this week who recommended pain mgmt. [...] (e.g., Scale 1-10; mild, moderate, or severe) 7 7. RECURRENT SYMPTOM: Have you ever had [...] Protocols used: Abdominal Pain - ADULT-AH Normal [facility] Calprotectin stoolOrdered By : Rosa Rodriguez on 12-15-2024 Calprotectin stool 190 ug/g High 0-120 [facility] Comment on above: Concentration Interp retation Follow-Up< 5 - 50 ug/g Normal None>50 -120 ug/g Borderline Re-evaluate in 4-6 weeks >120 ug/g Abnormal Repeat as clinically indicatedPerformed at: [employer] [id number] Director: Stanton Vargas MD, Phone: [phone] Stool Calprotectin 190 ug/g High 0-120 [facility] Comment on above: Concentration Interp retation Follow-Up< 5 - 50 ug/g Normal None>50 -120 ug/g Borderline Re-evaluate in 4-6 weeks >120 ug/g Abnormal Repeat as clinically indicatedPerformed at: [employer] [id number] Director: Stanton Vargas MD, Phone: [phone] Elastase.pancreatic (Stl) [M ass/Mass]Ordered By: Rosa Rodriguez on 12-15-2024 Stool Pancreatic Elastase 416 >200 [facility] Comment on above: Result Units: ug Stephanie st./g Severe Pancreatic Insufficiency: <100 Moderate Pancreatic Insufficiency: 100 - 200 Normal: >200Performed at: [employer] [id number] Director: Stanton Vargas MD, Phone: [phone] Stool pancreatic elastase me asurement (mass/mass)Ordered By: Rosa Rodriguez on 12-15-2024 Elastase.pancreatic (Stl) [Mass/Mass] 416 >200 [facility] Comment on above: Result Units: ug Stephanie st./g Severe Pancreatic Insufficiency: <100 Moderate Pancreatic Insufficiency: 100 - 200 Normal: >200Performed at: [facility] [address] [place], [place] [id number] Director: Stanton Vargas MD, Phone: [phone] No Panel Informationon 12-13 [facility] Gastroenterology Visit Repor ton 12-12-2024 Gastroenterology Visit Report Normal [facility] Cardiology Visit Reporton Cardiology Visit Report Normal [facility] 36on 11-24-2024 36 Name of caller: Beatrice lobo Contact phone number: [phone] Relationship to Patient: spouse/SO Provider: John Practice: [facility] Chief Complaint/Reason for Call: Patient , Beatrice, is calling to follow up with Dr. Lopez after patient appointment with her Gasteoenterologist. He is requesting a call back to discuss what happened at her appointment regarding her colitis diagnosis. He can be reached at [phone]. Best time of day caller can be reached: Any Patient advised that office/PCP has 24-48 business hours to return their call: N/A Normal [facility] Gastroenterology Visit Repor ton 11-23-2024 Gastroenterology Visit Report Normal [facility] Abdomen/Pelvis W IV Cont ONL Yon 11-18-2024 Abdomen/Pelvis W IV Cont ONLY Normal [facility] Absolute neutrophil countOrd ered By: Breann East on 11-18-2024 Neutrophils (Bld) [#/Vol] 3.3 10*3/uL 2.0-7.7 [facility] Albumin to globulin ratioOrd ered By: Breann East on 11-18-2024 Albumin/Globulin [Mass ratio] 0.9 {ratio} 0.9-2.4 [facility] Basophil percentageOrdered B y: Breann East on 11-18-2024 Basophils/100 WBC (Bld) 0.4 % 0-1 [facility] Bilirubin Test strip Ql (U)O rdered By: Breann East on 11-18-2024 Bilirubin Ql (U) Negative Negative [facility] Bilirubin, totalOrdered By: Breann East on 11-18-2024 Bilirubin [Mass/Vol] 0.30 mg/dL 0.20-1.00 [facility] Comment on above: For patients on eltr ombopag therapy, use of Dimension Olmito TBIL is not recommended. Blood urea nitrogen (BUN)/cr eatinine ratioOrdered By: Breann East on 11-18-2024 Urea nitrogen/Creatinine [Mass ratio] 26.5 mg/mg High 09-10 [facility] CBC W/Diff, Automatedon 10-23 Absolute Lymph 2.93 X10 3/uL Normal 0.83-4.51 [facility] Comment on above: Performed By: #### L 100.0100, L500.4050, L501.2450 ####[facility] [address] [place], [address] Absolute Neut 3.3 X10 3/uL Normal 2.0-7.7 [facility] Comment on above: Performed By: #### L 100.0100, L500.4050, L501.2450 ####[facility] [address] [place], [address] Basophils/100 WBC (Bld) 0.4 % Normal 0-1 [facility] Comment on above: Performed By: #### L 100.0100, L500.4050, L501.2450 ####[facility] [address] [place], [address] Eosinophils/100 WBC (Bld) 2.0 % Normal 0-5 [facility] Comment on above: Performed By: #### L 100.0100, L500.4050, L501.2450 ####[facility] [address] [place], [address] Erythrocyte distribution width (RBC) [Ratio] 13.8 % Normal 11.6-14.6 [facility] Comment on above: Performed By: #### L 100.0100, L500.4050, L501.2450 ####[facility] [address] [place], [address] Hematocrit (Bld) [Volume fraction] 39.2 % Normal 37-47 [facility] Comment on above: Performed By: #### L 100.0100, L500.4050, L501.2450 ####[facility] [address] [place], [address] Hemoglobin (Bld) [Mass/Vol] 12.7 g/dL Normal 12.0-15.0 [facility] Comment on above: Performed By: #### L 100.0100, L500.4050, L501.2450 ####[facility] [address] [place], [address] IG% 0.100 Normal 0.0-0.9 [facility] Comment on above: Result Comment: IG% - Immature Granulocytes (promyelocytes, myelocytes andmetamyelocytes) > 1% indicates that a LEFT SHIFT is Present. Performed By: #### L 100.0100, L500.4050, L501.2450 ####[facility] [address] [place], [address] Lymphocytes/100 WBC (Bld) 42.7 % High 19-41 [facility] Comment on above: Performed By: #### L 100.0100, L500.4050, L501.2450 ####[facility] [address] [place], [address] MCH (RBC) [Entitic mass] 30.2 pg Normal 27.0-32.0 [facility] Comment on above: Performed By: #### L 100.0100, L500.4050, L501.2450 ####[facility] [address] [place], [address] MCHC (RBC) [Mass/Vol] 32.4 g/dL Normal 32-36 [facility] Comment on above: Performed By: #### L 100.0100, L500.4050, L501.2450 ####[facility] [address] [place], [address] MCV (RBC) [Entitic vol] 93.3 fL Normal 81-99 [facility] Comment on above: Performed By: #### L 100.0100, L500.4050, L501.2450 ####[facility] [address] [place], [address] Monocytes/100 WBC (Bld) 6.7 % Normal 0-10 [facility] Comment on above: Performed By: #### L 100.0100, L500.4050, L501.2450 ####[facility] [address] [place], [address] Neutrophils/100 WBC (Bld) 48.1 % Normal 47-70 [facility] Comment on above: Performed By: #### L 100.0100, L500.4050, L501.2450 ####[facility] [address] [place], [address] Nucleated RBC (Bld) [#/Vol] 0 10*3/uL Normal 0-5 [facility] Comment on above: Performed By: #### L 100.0100, L500.4050, L501.2450 ####[facility] [address] [place], [address] Platelet mean volume (Bld) [Entitic vol] 11.7 fL Normal 6.2-12.0 [facility] Comment on above: Performed By: #### L 100.0100, L500.4050, L501.2450 ####[facility] [address] [place], [address] Platelets (Bld) [#/Vol] 153 10*3/uL Normal 150-450 [facility] Comment on above: Performed By: #### L 100.0100, L500.4050, L501.2450 ####[facility] [address] [place], [address] RBC (Bld) [#/Vol] 4.20 10*6/uL Normal 4.2-5.4 [facility] Comment on above: Performed By: #### L 100.0100, L500.4050, L501.2450 ####[facility] [address] [place], [address] RDW SD 47.0 fl High 35.1-43.9 [facility] Comment on above: Performed By: #### L 100.0100, L500.4050, L501.2450 ####[facility] [address] [place], [address] WBC (Bld) [#/Vol] 6.9 10*3/uL Normal 4.4-11.0 [facility] Comment on above: Performed By: #### L 100.0100, L500.4050, L501.2450 ####[facility] [address] [place], [address] Carbon dioxide measurementOr dered By: Breann East on 11-18-2024 CO2 [Moles/Vol] 29.0 mmol/L 21.0-32.0 [facility] Chloride measurementOrdered By: Breann East on 11-18-2024 Chloride [Moles/Vol] 107 mmol/L 98-107 [facility] Comprehensive Metabolic Prof ilon 11-18-2024 Albumin [Mass/Vol] 3.6 g/dL Normal 3.2-5.0 [facility] Comment on above: Performed By: #### L 100.0100, L500.4050, L501.2450 ####[facility] [address] [place], [address] Albumin/Globulin [Mass ratio] 0.9 {ratio} Normal 0.9-2.4 [facility] Comment on above: Performed By: #### L 100.0100, L500.4050, L501.2450 ####[facility] [address] [place], [address] ALK P 52 U/L Normal 45-117 [facility] Comment on above: Performed By: #### L 100.0100, L500.4050, L501.2450 ####[facility] [address] [place], [address] ALT [Catalytic activity/Vol] 21 U/L Normal 13-56 [facility] Comment on above: Performed By: #### L 100.0100, L500.4050, L501.2450 ####[facility] [address] [place], [address] AST [Catalytic activity/Vol] 19 U/L Normal 15-37 [facility] Comment on above: Performed By: #### L 100.0100, L500.4050, L501.2450 ####[facility] [address] [place], [address] Bilirubin [Mass/Vol] 0.30 mg/dL Normal 0.20-1.00 [facility] Comment on above: Result Comment: For patients on eltrombopag therapy, use of Dimension Olmito TBIL is not recommended. Performed By: #### L 100.0100, L500.4050, L501.2450 ####[facility] [address] [place], [address] BUN/CRE 26.5 RATIO High 10-20 [facility] Comment on above: Performed By: #### L 100.0100, L500.4050, L501.2450 ####[facility] [address] [place], [address] CA,Total 9.2 mg/dL Normal 8.5-10.1 [facility] Comment on above: Performed By: #### L 100.0100, L500.4050, L501.2450 ####[facility] [address] [place], [address] Chloride [Moles/Vol] 107 mmol/L Normal 98-107 [facility] Comment on above: Performed By: #### L 100.0100, L500.4050, L501.2450 ####[facility] [address] [place], [address] CO2 [Moles/Vol] 29.0 mmol/L Normal 21.0-32.0 [facility] Comment on above: Performed By: #### L 100.0100, L500.4050, L501.2450 ####[facility] [address] [place], [address] Creatinine [Mass/Vol] 1.02 mg/dL Normal 0.55-1.02 [facility] Comment on above: Result Comment: The validity of the calculated GFR GFRAA in patients over70 years has not been determined. Clinical correlation isessential. Performed By: #### L 100.0100, L500.4050, L501.2450 ####[facility] [address] [place], [address] EST GFR - AA 69 mL/min Normal >60 [facility] Comment on above: Result Comment: Afri can Dominican GFR Calc Performed By: #### L 100.0100, L500.4050, L501.2450 ####[facility] [address] [place], [address] GAP 3 Low 5-15 [facility] Comment on above: Performed By: #### L 100.0100, L500.4050, L501.2450 ####[facility] [address] [place], [address] GFR/1.73 sq M.predicted among non-blacks MDRD (S/P/Bld) [Vol rate/Area] 57 mL/min/{1.73_m2} Low >60 [facility] Comment on above: Result Comment: Non- GFR Calc Performed By: #### L 100.0100, L500.4050, L501.2450 ####[facility] [address] [place], [address] Globulin (S) [Mass/Vol] 3.8 g/dL Normal 2.2-4.2 [facility] Comment on above: Performed By: #### L 100.0100, L500.4050, L501.2450 ####[facility] [address] [place], [address] Glucose [Mass/Vol] 209 mg/dL High 74-106 [facility] Comment on above: Result Comment: Gluc ose result greater than or equal to 200 mg/dLsuggests DIABETES MELLITUS per A.D.A. criteria. Performed By: #### L 100.0100, L500.4050, L501.2450 ####[facility] [address] [place], [address] Potassium [Moles/Vol] 4.4 mmol/L Normal 3.5-5.1 [facility] Comment on above: Performed By: #### L 100.0100, L500.4050, L501.2450 ####[facility] [address] [place], [address] Sodium [Moles/Vol] 138 mmol/L Normal 136-145 [facility] Comment on above: Performed By: #### L 100.0100, L500.4050, L501.2450 ####[facility] [address] [place], [address] T PROT 7.4 g/dL Normal 6.4-8.2 [facility] Comment on above: Performed By: #### L 100.0100, L500.4050, L501.2450 ####[facility] [address] [place], [address] Urea nitrogen [Mass/Vol] 27 mg/dL High 7-18 [facility] Comment on above: Performed By: #### L 100.0100, L500.4050, L501.2450 ####[facility] [address] [place], [address] Emergency Department Summary on 11-18-2024 Emergency Department Summary Normal [facility] Eosinophil percentageOrdered By: Breann East on 11-18-2024 Eosinophils/100 WBC (Bld) 2.0 % 0-5 [facility] Epithelial cells.squamous LM Ql (Urine sed)Ordered By: Breann East on 11-18-2024 Epithelial cells.squamous LM.HPF (Urine sed) [#/Area] 0 /[HPF] 5-10 [facility] Erythrocyte distribution wid th (RBC) [Ratio]Ordered By: Breann East on 11-18-2024 Erythrocyte distribution width (RBC) [Entitic vol] 47.0 fL High 35.1-43.9 [facility] Erythrocyte distribution wid th ratioOrdered By: Breann East on 11-18-2024 Erythrocyte distribution width (RBC) [Ratio] 13.8 % 11.6-14.6 [facility] Estimated glomerular filtrat ion rate (GFR) AmericanOrdered By: Breann East on 11-18-2024 Estimated GFR (MDRD) Amer 69 mL/min >60 [facility] Comment on above: GFR Calc Glomerular filtration rate ( GFR) estimationOrdered By: Breann East on 11-18-2024 Estimated GFR (MDRD) Non-Af Amer 57 mL/min Low >60 [facility] Comment on above: Non- GFR Calc Glucose Ql (U)Ordered By: Tanya East on 11-18-2024 Glucose (U) [Mass/Vol] 1000 mg/dL High Normal [facility] Glucose measurementOrdered B y: Breann East on 11-18-2024 Glucose [Mass/Vol] 209 mg/dL High 74-106 [facility] Comment on above: Glucose result great er than or equal to 200 mg/dLsuggests DIABETES MELLITUS per A.D.A. criteria. Hematocrit Auto (Bld) [Volum e fraction]Ordered By: Breann East on 11-18-2024 Hematocrit (Bld) [Volume fraction] 39.2 % 37-47 [facility] Hemoglobin measurementOrdere d By: Breann East on 11-18-2024 Hemoglobin (Bld) [Mass/Vol] 12.7 g/dL 12.0-15.0 [facility] Immature granulocytes/100 WB C Auto (Bld)Ordered By: Breann East on 11-18-2024 Immature granulocytes/100 WBC (Bld) 0.100 % 0.0-0.9 [facility] Comment on above: IG% - Immature Granu locytes (promyelocytes, myelocytes and metamyelocytes) > 1% indicates that a LEFT SHIFT is Present. Ketones Test strip Ql (U)Ord ered By: Breann East on 11-18-2024 Ketones Ql (U) Negative Negative [facility] Laboratory - Chemistry and C hemistry - challengeOrdered By: Breann East on 11-18-2024 AST [Catalytic activity/Vol] 19 U/L 15-37 [facility] Lipaseon 11-18-2024 Lipase [Catalytic activity/Vol] 49 U/L Normal 13-75 [facility] Comment on above: Result Comment: Josy fay note:LIPASE revised reference range effective 23.New Lipase methodology. Expected to produce lower valuesthan the previous assay method.NEW Reference Range: 13 - 75 U/L Performed By: #### L 100.0100, L500.4050, L501.2450 ####[facility] [address] [place], [place], [id number] Lipase measurementOrdered By : Breann East on 11-18-2024 Lipase [Catalytic activity/Vol] 49 U/L 13-75 [facility] Comment on above: Please note:LIPASE r evised reference range effective 23. New Lipase methodology. Expected to produce lower values than the previous assay method. NEW Reference Range: 13 - 75 U/L Lymphocytes Auto (Unsp spec) [#/Vol]Ordered By: Breann East on 11-18-2024 Lymphocytes (Bld) [#/Vol] 2.93 10*3/uL 0.83-4.51 [facility] Lymphocytes/100 WBC Auto (Un sp spec)Ordered By: Breann East on 11-18-2024 Lymphocytes/100 WBC (Bld) 42.7 % High 19-41 [facility] MCV (mean corpuscular volume ) determinationOrdered By: Breann East on 11-18-2024 MCV (RBC) [Entitic vol] 93.3 fL 81-99 [facility] Mean corpuscular hemoglobin (MCH) determinationOrdered By: Breann East on 11-18-2024 MCH (RBC) [Entitic mass] 30.2 pg 27.0-32.0 [facility] Mean corpuscular hemoglobin concentration (MCHC) determinationOrdered By: Breann East on 11-18-2024 MCHC (RBC) [Mass/Vol] 32.4 g/dL 32-36 [facility] Mean platelet volume determi nationOrdered By: Breann East on 11-18-2024 Platelet mean volume (Bld) [Entitic vol] 11.7 fL 6.2-12.0 [facility] Microscopic analysis of urin e for red blood cells (RBC)Ordered By: Breann East on 11-18-2024 Urine RBC 0-5 SEEN /hpf 0-5 [facility] Monocyte percentageOrdered B y: Breann East on 11-18-2024 Monocytes/100 WBC (Bld) 6.7 % 0-10 [facility] Mucus LM Ql (Urine sed)Order ed By: Breann East on 11-18-2024 Mucus Ql (Urine sed) 0 SEEN /hpf [facility] Neutrophil percentageOrdered By: Breann East on 11-18-2024 Neutrophils/100 WBC (Bld) 48.1 % 47-70 [facility] Nitrite Test strip Ql (U)Ord ered By: Breann East on 11-18-2024 Nitrite Ql (U) Negative Negative [facility] Nucleated red blood cell per centageOrdered By: Breann East on 11-18-2024 Nucleated RBC/100 WBC (Bld) [Ratio] 0 % 0-5 [facility] Platelet countOrdered By: Tanya East on 11-18-2024 Platelets (Bld) [#/Vol] 153 10*3/uL 150-450 [facility] Potassium measurementOrdered By: Breann East on 11-18-2024 Potassium [Moles/Vol] 4.4 mmol/L 3.5-5.1 [facility] Protein Test strip Ql (U)Ord ered By: Breann East on 11-18-2024 Protein Ql (U) Negative Negative [facility] RBC Auto (Bld) [#/Vol]Ordere d By: Breann East on 11-18-2024 RBC (Bld) [#/Vol] 4.20 10*6/uL 4.2-5.4 [facility] Serum anion gap measurementO rdered By: Breann East on 11-18-2024 Anion gap [Moles/Vol] 3 mmol/L Low 5-15 [facility] Serum globulin measurementOr dered By: Breann East on 11-18-2024 Globulin (S) [Mass/Vol] 3.8 g/dL 2.2-4.2 [facility] Serum or plasma alanine cisneros otransferase (ALT) measurementOrdered By: Breann East on 11-18-2024 ALT [Catalytic activity/Vol] 21 U/L 13-56 [facility] Serum or plasma albumin loco urement (mass/volume)Ordered By: Breann East on 11-18-2024 Albumin [Mass/Vol] 3.6 g/dL 3.2-5.0 [facility] Serum or plasma alkaline sergio sphatase measurementOrdered By: Breann East on 11-18-2024 ALP [Catalytic activity/Vol] 52 U/L 45-117 [facility] Serum or plasma calcium loco urement (mass/volume)Ordered By: Breann East on 11-18-2024 Calcium [Mass/Vol] 9.2 mg/dL 8.5-10.1 [facility] Serum or plasma creatinine m easurement (mass/volume)Ordered By: Breann East on 11-18-2024 Creatinine [Mass/Vol] 1.02 mg/dL 0.55-1.02 [facility] Comment on above: The validity of the calculated GFR & GFRAA in patients over 70 years has not been determined. Clinical correlation is essential. Serum or plasma urea nitroge n measurement (mass/volume)Ordered By: Breann East on 11-18-2024 Urea nitrogen [Mass/Vol] 27 mg/dL High 7-18 [facility] Sodium levelOrdered By: Celestino East on 11-18-2024 Sodium [Moles/Vol] 138 mmol/L 136-145 [facility] Total proteinOrdered By: Chaz East on 11-18-2024 Protein [Mass/Vol] 7.4 g/dL 6.4-8.2 [facility] Transitional cells LM Ql (Ur ine sed)Ordered By: Breann East on 11-18-2024 Urine Transitional Epithelial Cells 0-5 SEEN /hpf 0-5 [facility] Urinalysis, Completeon 11-18 EPI,SQUAMOUS 0-5 SEEN Normal 5-10 [facility] Comment on above: Order Comment: CLEAN CATCH Performed By: #### L 400.0001 ####[facility] [address] [place], [place], [phone] EPI,TRANSITION 0-5 SEEN Normal 0-5 [facility] Comment on above: Order Comment: CLEAN CATCH Performed By: #### L 400.0001 ####[facility] [address] [place], [address] WBC 0-5 SEEN Normal 0-5 [facility] Comment on above: Order Comment: CLEAN CATCH Performed By: #### L 400.0001 ####[facility] [address] [place], [address] BACTERIA 1+ /hpf Normal None Seen [facility] Comment on above: Order Comment: CLEAN CATCH Performed By: #### L 400.0001 ####[facility] [address] [place], [address] RBC 0-5 SEEN Normal 0-5 [facility] Comment on above: Order Comment: CLEAN CATCH Performed By: #### L 400.0001 ####[facility] [address] [place], [address] Mucus Ql (Urine sed) 0 SEEN Normal [facility] Comment on above: Order Comment: CLEAN CATCH Performed By: #### L 400.0001 ####[facility] [address] [place], [address] Urinalysis, Routine (Dipstic k)on 11-18-2024 BILIRUBIN URINE Normal Negative [facility] Comment on above: Order Comment: CLEAN CATCH Result Comment: Canc elled via OM: MD Ordered Performed By: #### L 400.2010 ####[facility] [address] [place], [address] Clarity (U) Normal Clear [facility] Comment on above: Order Comment: CLEAN CATCH Result Comment: Canc elled via OM: MD Ordered Performed By: #### L 400.2010 ####[facility] [address] [place], [address] Color (U) Normal Yellow [facility] Comment on above: Order Comment: CLEAN CATCH Result Comment: Canc elled via OM: MD Ordered Performed By: #### L 400.2010 ####[facility] [address] [place], [address] GLUCOSE, UR Normal Normal [facility] Comment on above: Order Comment: CLEAN CATCH Result Comment: Canc elled via OM: MD Ordered Performed By: #### L 400.2010 ####[facility] [address] [place], [address] KETONE UR Normal Negative [facility] Comment on above: Order Comment: CLEAN CATCH Result Comment: Canc elled via OM: MD Ordered Performed By: #### L 400.2010 ####[facility] [address] [place], [address] LEUK ESTERASE Normal Negative [facility] Comment on above: Order Comment: CLEAN CATCH Result Comment: Canc elled via OM: MD Ordered Performed By: #### L 400.2010 ####[facility] [address] [place], [address] Nitrite Ql (U) Normal Negative [facility] Comment on above: Order Comment: CLEAN CATCH Result Comment: Canc elled via OM: MD Ordered Performed By: #### L 400.2010 ####[facility] [address] [place], [address] OCCULT BLOOD-UR Normal Negative [facility] Comment on above: Order Comment: CLEAN CATCH Result Comment: Canc elled via OM: MD Ordered Performed By: #### L 400.2010 ####[facility] [address] [place], [address] pH UR Normal 5.0 - 8.0 [facility] Comment on above: Order Comment: CLEAN CATCH Result Comment: Canc elled via OM: MD Ordered Performed By: #### L 400.2010 ####[facility] [address] [place], [address] PROT DIPSTX Normal Negative [facility] Comment on above: Order Comment: CLEAN CATCH Result Comment: Canc elled via OM: MD Ordered Performed By: #### L 400.2010 ####[facility] [address] [place], [address] SP.GR. DIPSTX Normal 1.002-1.03 0 [facility] Comment on above: Order Comment: CLEAN CATCH Result Comment: Canc elled via OM: MD Ordered Performed By: #### L 400.2010 ####[facility] [address] [place], [address] UR Preservative Normal [facility] Comment on above: Order Comment: CLEAN CATCH Result Comment: Canc elled via OM: MD Ordered Performed By: #### L 400.2010 ####[facility] [address] [place], [place], [address] UROBILI Normal Normal [facility] Comment on above: Order Comment: CLEAN CATCH Result Comment: Canc elled via OM: MD Ordered Performed By: #### L 400.2010 ####[facility] [address] [place], [place], [address] Urine blood detectionOrdered By: Breann East on 11-18-2024 Urine Occult Blood 50 /ul High Negative [facility] Urine clarityOrdered By: Chaz East on 11-18-2024 Clarity (U) Clear Clear [facility] Urine color determinationOrd ered By: Breann East on 11-18-2024 Color (U) YELLOW Yellow [facility] Urine leukocyte esterase det ection by dipstickOrdered By: Breann East on 11-18-2024 Leukocyte esterase Test strip Ql (U) Negative Negative [facility] Urine pHOrdered By: Niurka East on 11-18-2024 pH (U) 7.0 [pH] 5.0 - 8.0 [facility] Urine sediment bacteria coun t by microscopy (number/high power field)Ordered By: Breann East on 11-18-2024 Bacteria LM.HPF (Urine sed) [#/Area] 1 /[HPF] None Seen [facility] Urine specific gravity measu rementOrdered By: Breann East on 11-18-2024 Specific gravity (U) [Rel density] 1.005 1.002-1.03 0 [facility] Urobilinogen Ql (U)Ordered B y: Breann East on 11-18-2024 Urine Urobilinogen Normal mg/dl Normal [facility] White blood cell (WBC) count Ordered By: Breann East on 11-18-2024 WBC (Bld) [#/Vol] 6.9 10*3/uL 4.4-11.0 [facility] White blood cell countOrdere d By: Breann East on 11-18-2024 Urine WBC 0-5 SEEN /hpf 0-5 [facility] 36on 11-16-2024 36 Name of caller: Beatrice lobo Contact phone number: [phone] Relationship to Patient: spouse/SO Provider: Dr Marci Lopez [place] [facility] [place] Complaint/Reason for Call: Song called to let doctor know appointment is set for 12/19/24 with vascular surgeon, and is not sure if that's soon enough. Please advise Best time of day caller can be reached: [facility] 11-13-2024 CNPN Telephone ([id number]) MANSI CARO ([id number]) 1955 F Date Time Provider Department 11/13/24 GAHZALA GUSMAN REMS31 During your visit today, we [...] can prescribe to help with this? Pharmacy: [facility] in [place], [place] Janee Argueta RN 11/14/2024 9:27 AM [...] allergic reaction and is willing to rechallenge [facility] RN Date Reviewed: 05/17/2024 Reviewed by: Yadira [...] Status:Closed by GHAZALA GUSMAN on 11/14/24 Normal [facility] US CAROTID ARTERY DUPLE X BILATERALon 11-12-2024 [facility] US CAROTID ARTERY DUPLEX BILATERAL [facility] 1955 [id number] Exam Date/Time: 11/10/2024 15:39 Procedure: [facility] US CAROTID ARTERY DUPLEX BILATERAL Ordering Provider: [...] Electronically Signed Date/Time: 11/12/2024 4:33 PM EST [facility] US carotid artery d uplex bilateralon [...] MD Electronically Signed Date/Time: 11/12/2024 4:33 PM [facility] Patient Name: [facility] : 1955 [id number] Exam Date/Time: 11/10/2024 15:39 Procedure: VAS US CAROTID ARTERY DUPLEX BILATERAL Ordering Provider: [...] 50% ECA systolic: 105 cm/sec Vertebral: Antegrade [facility] Amadeo Hsu MD - 11/12/2024 Patient Name: MANSI CARO : 1955 Exam Date/Time: 11/10/2024 15:39 Procedure: VASC US [...] MD Electronically Signed Date/Time: 11/12/2024 4:33 PM [facility] 12 Lead EKGon 11-02-2024 12 Lead EKG Normal [facility] Abdomen/Pelvis without Conto n 11-02-2024 Abdomen/Pelvis without Cont Normal [facility] BNP,B-Type NATRIURETIC PEPTI Ingrid 11-02-2024 Natriuretic peptide B (Bld) [Mass/Vol] 52.4 pg/mL Normal 0-100 [facility] Comment on above: Performed By: #### L 501.5422, L503.6659, L100.0500, L500.7500, L501.7910 ####[facility] [address] [place], [address] Brain/Head without Contrasto n 11-02-2024 Brain/Head without Contrast Normal [facility] CBC-Complete Blood Cnt No Di ffon 11-02-2024 Erythrocyte distribution width (RBC) [Ratio] 14.1 % Normal 11.6-14.6 [facility] Comment on above: Performed By: #### L 501.5425, L503.6620, L100.0500, L500.4050, L501.2450 ####[facility] [address] [place], [address] Hematocrit (Bld) [Volume fraction] 39.2 % Normal 37-47 [facility] Comment on above: Performed By: #### L 501.5425, L503.6620, L100.0500, L500.4050, L501.2450 ####[facility] [address] [place], [address] Hemoglobin (Bld) [Mass/Vol] 12.9 g/dL Normal 12.0-15.0 [facility] Comment on above: Performed By: #### L 501.5425, L503.6620, L100.0500, L500.4050, L501.2450 ####[facility] [address] [place], [address] MCH (RBC) [Entitic mass] 30.2 pg Normal 27.0-32.0 [facility] Comment on above: Performed By: #### L 501.5425, L503.6620, L100.0500, L500.4050, L501.2450 ####[facility] [address] [place], [address] MCHC (RBC) [Mass/Vol] 32.9 g/dL Normal 32-36 [facility] Comment on above: Performed By: #### L 501.5425, L503.6620, L100.0500, L500.4050, L501.2450 ####[facility] [address] [place], [address] MCV (RBC) [Entitic vol] 91.8 fL Normal 81-99 [facility] Comment on above: Performed By: #### L 501.5425, L503.6620, L100.0500, L500.4050, L501.2450 ####[facility] [address] [place], [address] Platelet mean volume (Bld) [Entitic vol] 11.2 fL Normal 6.2-12.0 [facility] Comment on above: Performed By: #### L 501.5425, L503.6620, L100.0500, L500.4050, L501.2450 ####[facility] [address] [place], [address] Platelets (Bld) [#/Vol] 138 10*3/uL Low 150-450 [facility] Comment on above: Performed By: #### L 501.5425, L503.6620, L100.0500, L500.4050, L501.2450 ####[facility] [address] [place], [address] RBC (Bld) [#/Vol] 4.27 10*6/uL Normal 4.2-5.4 [facility] Comment on above: Performed By: #### L 501.5425, L503.6620, L100.0500, L500.4050, L501.2450 ####[facility] [address] [place], [address] RDW SD 47.5 fl High 35.1-43.9 [facility] Comment on above: Performed By: #### L 501.5425, L503.6620, L100.0500, L500.4050, L501.2450 ####[facility] [address] [place], [address] WBC (Bld) [#/Vol] 12.7 10*3/uL High 4.4-11.0 [facility] Comment on above: Performed By: #### L 501.5425, L503.6620, L100.0500, L500.4050, L501.2450 ####[facility] [address] [place], [address] Chest 1 View (Portable)on Chest 1 View (Portable) Normal [facility] Comprehensive Metabolic Prof ilon 11-02-2024 Albumin [Mass/Vol] 4.0 g/dL Normal 3.2-5.0 [facility] Comment on above: Order Comment: 1Y Performed By: #### L 501.5425, L503.6620, L100.0500, L500.4050, L501.2450 ####[facility] [address] [place], [address] Albumin/Globulin [Mass ratio] 1.1 {ratio} Normal 0.9-2.4 [facility] Comment on above: Order Comment: 1Y Performed By: #### L 501.5425, L503.6620, L100.0500, L500.4050, L501.2450 ####[facility] [address] [place], [address] ALK P 64 U/L Normal 45-117 [facility] Comment on above: Order Comment: 1Y Performed By: #### L 501.5425, L503.6620, L100.0500, L500.4050, L501.2450 ####[facility] [address] [place], [address] ALT [Catalytic activity/Vol] 17 U/L Normal 13-56 [facility] Comment on above: Order Comment: 1Y Performed By: #### L 501.5425, L503.6620, L100.0500, L500.4050, L501.2450 ####[facility] [address] [place], [address] AST [Catalytic activity/Vol] 20 U/L Normal 15-37 [facility] Comment on above: Order Comment: 1Y Performed By: #### L 501.5425, L503.6620, L100.0500, L500.4050, L501.2450 ####[facility] [address] [place], [address] Bilirubin [Mass/Vol] 0.40 mg/dL Normal 0.20-1.00 [facility] Comment on above: Order Comment: 1Y Result Comment: For patients on eltrombopag therapy, use of Dimension Olmito TBIL is not recommended. Performed By: #### L 501.5425, L503.6620, L100.0500, L500.4050, L501.2450 ####[facility] [address] [place], [address] BUN/CRE 23.1 RATIO High 10-20 [facility] Comment on above: Order Comment: 1Y Performed By: #### L 501.5425, L503.6620, L100.0500, L500.4050, L501.2450 ####[facility] [address] [place], [address] CA,Total 9.5 mg/dL Normal 8.5-10.1 [facility] Comment on above: Order Comment: 1Y Performed By: #### L 501.5425, L503.6620, L100.0500, L500.4050, L501.2450 ####[facility] [address] [place], [address] Chloride [Moles/Vol] 106 mmol/L Normal 98-107 [facility] Comment on above: Order Comment: 1Y Performed By: #### L 501.5425, L503.6620, L100.0500, L500.4050, L501.2450 ####[facility] [address] [place], [address] CO2 [Moles/Vol] 27.0 mmol/L Normal 21.0-32.0 [facility] Comment on above: Order Comment: 1Y Performed By: #### L 501.5425, L503.6620, L100.0500, L500.4050, L501.2450 ####[facility] [address] [place], [address] Creatinine [Mass/Vol] 1.30 mg/dL High 0.55-1.02 [facility] Comment on above: Order Comment: 1Y Result Comment: The validity of the calculated GFR GFRAA in patients over70 years has not been determined. Clinical correlation isessential. Performed By: #### L 501.5425, L503.6620, L100.0500, L500.4050, L501.2450 ####[facility] [address] [place], [address] ECRCL 38.97 ml/min Normal [facility] Comment on above: Order Comment: 1Y Performed By: #### L 501.5425, L503.6620, L100.0500, L500.4050, L501.2450 ####[facility] [facility] [address] [place], [address] EST GFR - AA 52 mL/min Low >60 [facility] Comment on above: Order Comment: 1Y Result Comment: Afri can Dominican GFR Calc Performed By: #### L 501.5425, L503.6620, L100.0500, L500.4050, L501.2450 ####[facility] [address] [place], [address] GAP 5 Normal 5-15 [facility] Comment on above: Order Comment: 1Y Performed By: #### L 501.5425, L503.6620, L100.0500, L500.4050, L501.2450 ####[facility] [address] [place], [address] GFR/1.73 sq M.predicted among non-blacks MDRD (S/P/Bld) [Vol rate/Area] 43 mL/min/{1.73_m2} Low >60 [facility] Comment on above: Order Comment: 1Y Result Comment: Non- GFR Calc Performed By: #### L 501.5425, L503.6620, L100.0500, L500.4050, L501.2450 ####[facility] [address] [place], [address] Globulin (S) [Mass/Vol] 3.6 g/dL Normal 2.2-4.2 [facility] Comment on above: Order Comment: 1Y Performed By: #### L 501.5425, L503.6620, L100.0500, L500.4050, L501.2450 ####[facility] [address] [place], [address] Glucose [Mass/Vol] 224 mg/dL High 74-106 [facility] Comment on above: Order Comment: 1Y Result Comment: Gluc ose result greater than or equal to 200 mg/dLsuggests DIABETES MELLITUS per A.D.A. criteria. Performed By: #### L 501.5425, L503.6620, L100.0500, L500.4050, L501.2450 ####[facility] [address] [place], [address] Potassium [Moles/Vol] 4.4 mmol/L Normal 3.5-5.1 [facility] Comment on above: Order Comment: 1Y Performed By: #### L 501.5425, L503.6620, L100.0500, L500.4050, L501.2450 ####[facility] [address] [place], [address] Sodium [Moles/Vol] 138 mmol/L Normal 136-145 [facility] Comment on above: Order Comment: 1Y Performed By: #### L 501.5425, L503.6620, L100.0500, L500.4050, L501.2450 ####[facility] [address] [place], [address] T PROT 7.6 g/dL Normal 6.4-8.2 [facility] Comment on above: Order Comment: 1Y Performed By: #### L 501.5425, L503.6620, L100.0500, L500.4050, L501.2450 ####[facility] [address] [place], [address] Urea nitrogen [Mass/Vol] 30 mg/dL High 7-18 [facility] Comment on above: Order Comment: 1Y Performed By: #### L 501.5425, L503.6620, L100.0500, L500.4050, L501.2450 ####[facility] [address] [place], [address] Emergency Department Summary on 11-02-2024 Emergency Department Summary Normal [facility] L501.4020on 11-02-2024 TROPONIN-I HS 22 pg/mL Normal 3.0-54.0 [facility] Comment on above: Result Comment: Plea se Note: New Test Units and Gender Specific Reference Ranges. For more information see Policy Stat Procedure Olmito High Sensitivity Troponin (TNIH) and attachments. Performed By: #### L 501.4020 ####[facility] [address] [place], [address] L501.5425on 11-02-2024 TROPONIN-I HS 15 pg/mL Normal 3.0-54.0 [facility] Comment on above: Order Comment: 1Y Result Comment: Plea se Note: New Test Units and Gender Specific Reference Ranges. For more information see Policy Stat Procedure [place]mito High Sensitivity Troponin (TNIH) and attachments. Performed By: #### L 501.5425, L503.6620, L100.0500, L500.4050, L501.2450 ####[facility] [address] [place], [address] Lipaseon 11-02-2024 Lipase [Catalytic activity/Vol] 41 U/L Normal 13-75 [facility] Comment on above: Order Comment: 1Y Result Comment: Josy fay note:LIPASE revised reference range effective 23.New Lipase methodology. Expected to produce lower valuesthan the previous assay method.NEW Reference Range: 13 - 75 U/L Performed By: #### L 501.5425, L503.6620, L100.0500, L500.4050, L501.2450 ####[facility] [address] [place], [address] M100.678on 11-02-2024 M100.678 Pending SARS-CoV-2 (COVID 19) Negative INFLUENZA A Negative INFLUENZA B Negative RSV PCR Negative Normal [facility] Comment on above: Performed By: #### M 100.678, L400.0001 ####[facility] [address] [place], [address] Urinalysis, Completeon 11-02 BACTERIA 0 SEEN Normal None Seen [facility] Comment on above: Order Comment: CLEAN CATCH Performed By: #### M 100.678, L400.0001 ####[facility] [address] [place], [address] EPI,SQUAMOUS 0 SEEN Normal 5-10 [facility] Comment on above: Order Comment: CLEAN CATCH Performed By: #### M 100.678, L400.0001 ####[facility] [address] [place], [address] Mucus Ql (Urine sed) 0 SEEN Normal [facility] Comment on above: Order Comment: CLEAN CATCH Performed By: #### M 100.678, L400.0001 ####[facility] [address] [place], [address] RBC 0 SEEN Normal 0-5 [facility] Comment on above: Order Comment: CLEAN CATCH Performed By: #### M 100.678, L400.0001 ####[facility] [address] [place], [address] WBC 0 SEEN Normal 0-5 [facility] Comment on above: Order Comment: CLEAN CATCH Performed By: #### M 100.678, L400.0001 ####[facility] [address] [place], [address] Gastroenterology Visit Repor ton 10-17-2024 Gastroenterology Visit Report Normal [facility] 36on 10-06-2024 36 Name of caller: Beatrice lobo Contact phone number: [phone] Relationship to Patient: spouse/SO Provider: Dr. Lopez Practice: [facility] Chief Complaint/Reason for Call: Song wanted to ask Dr. oLpez to consider long covid for patient. States all the symptoms are there. Requesting a call back to discuss. Please advise. Best time of day caller can be reached: any Patient advised that office/PCP has 24-48 business hours to return their call: Normal [facility] Inital Evaluation (1) - PTon 09-27-2024 Inital Evaluation (1) - PT Normal [facility] MR/BMS.BVSon 09-14-2024 MR/BMS.BVS Normal [facility] 12 Lead EKGon 09-09-2024 12 Lead EKG Normal [facility] BNP,B-Type NATRIURETIC PEPTI Ingrid 09-09-2024 Natriuretic peptide B (Bld) [Mass/Vol] 40.9 pg/mL Normal 0-100 [facility] Comment on above: Performed By: #### L 300.3900, L300.4310, L503.6620, L300.8000 ####[facility] [address] [place], [address] Basic Metabolic Profile (BMP )on 09-09-2024 BUN/CRE 36.1 RATIO High 10-20 [facility] Comment on above: Performed By: #### L 100.0100, L500.2500 ####[facility] [address] [place], [address] CA,Total 9.4 mg/dL Normal 8.5-10.1 [facility] Comment on above: Performed By: #### L 100.0100, L500.2500 ####[facility] [address] [place], [address] Chloride [Moles/Vol] 106 mmol/L Normal 98-107 [facility] Comment on above: Performed By: #### L 100.0100, L500.2500 ####[facility] [address] [place], [address] CO2 [Moles/Vol] 28.0 mmol/L Normal 21.0-32.0 [facility] Comment on above: Performed By: #### L 100.0100, L500.2500 ####[facility] [address] [place], [address] Creatinine [Mass/Vol] 1.22 mg/dL High 0.55-1.02 [facility] Comment on above: Result Comment: The validity of the calculated GFR GFRAA in patients over70 years has not been determined. Clinical correlation isessential. Performed By: #### L 100.0100, L500.2500 ####[facility] [address] [place], [address] ECRCL 41.66 ml/min Normal [facility] Comment on above: Performed By: #### L 100.0100, L500.2500 ####[facility] [address] [place], [address] EST GFR - AA 56 mL/min Low >60 [facility] Comment on above: Result Comment: Afri can Dominican GFR Calc Performed By: #### L 100.0100, L500.2500 ####[facility] [address] [place], [address] GAP 5 Normal 5-15 [facility] Comment on above: Performed By: #### L 100.0100, L500.2500 ####[facility] [address] [place], [address] GFR/1.73 sq M.predicted among non-blacks MDRD (S/P/Bld) [Vol rate/Area] 46 mL/min/{1.73_m2} Low >60 [facility] Comment on above: Result Comment: Non- GFR Calc Performed By: #### L 100.0100, L500.2500 ####[facility] [address] [place], [address] Glucose [Mass/Vol] 231 mg/dL High 74-106 [facility] Comment on above: Result Comment: Gluc ose result greater than or equal to 200 mg/dLsuggests DIABETES MELLITUS per A.D.A. criteria. Performed By: #### L 100.0100, L500.2500 ####[facility] [address] [place], [address] Potassium [Moles/Vol] 4.8 mmol/L Normal 3.5-5.1 [facility] Comment on above: Performed By: #### L 100.0100, L500.2500 ####[facility] [address] [place], [address] Sodium [Moles/Vol] 139 mmol/L Normal 136-145 [facility] Comment on above: Performed By: #### L 100.0100, L500.2500 ####[facility] [address] [place], [address] Urea nitrogen [Mass/Vol] 44 mg/dL High 7-18 [facility] Comment on above: Performed By: #### L 100.0100, L500.2500 ####[facility] [address] [place], [address] CBC W/Diff, Automatedon 08-22 Absolute Neut Normal 2.0-7.7 [facility] Comment on above: Result Comment: DUPL ICATES Performed By: #### L 100.0100, L501.5425 ####[facility] [address] [place], [address] HCT Normal 37-47 [facility] Comment on above: Result Comment: DUPL ICATES Performed By: #### L 100.0100, L501.5425 ####[facility] [address] [place], [address] HGB Normal 12.0-15.0 [facility] Comment on above: Result Comment: DUPL ICATES Performed By: #### L 100.0100, L501.5425 ####[facility] [address] [place], [address] MCH Normal 27.0-32.0 [facility] Comment on above: Result Comment: DUPL ICATES Performed By: #### L 100.0100, L501.5425 ####[facility] [address] [place], [address] MCHC Normal 32-36 [facility] Comment on above: Result Comment: DUPL ICATES Performed By: #### L 100.0100, L501.5425 ####[facility] [address] [place], [address] MCV Normal 81-99 [facility] Comment on above: Result Comment: DUPL ICATES Performed By: #### L 100.0100, L501.5425 ####[facility] [address] [place], [address] NEUT% Normal 47-70 [facility] Comment on above: Result Comment: DUPL ICATES Performed By: #### L 100.0100, L501.5425 ####[facility] [address] [place], [address] PLT Normal 150-450 [facility] Comment on above: Result Comment: DUPL ICATES Performed By: #### L 100.0100, L501.5425 ####[facility] [address] [place], [address] RBC Normal 4.2-5.4 [facility] Comment on above: Result Comment: DUPL ICATES Performed By: #### L 100.0100, L501.5425 ####[facility] [address] [place], [address] RDW CV Normal 11.6-14.6 [facility] Comment on above: Result Comment: DUPL ICATES Performed By: #### L 100.0100, L501.5425 ####[facility] [address] [place], [address] RDW SD Normal 35.1-43.9 [facility] Comment on above: Result Comment: DUPL ICATES Performed By: #### L 100.0100, L501.5425 ####[facility] [address] [place], [address] WBC Normal 4.4-11.0 [facility] Comment on above: Result Comment: DUPL ICATES Performed By: #### L 100.0100, L501.5425 ####[facility] [address] [place], [address] Absolute Lymph 2.53 X10 3/uL Normal 0.83-4.51 [facility] Comment on above: Performed By: #### L 100.0100, L500.2500 ####[facility] [address] [place], [address] Absolute Neut 3.4 X10 3/uL Normal 2.0-7.7 [facility] Comment on above: Performed By: #### L 100.0100, L500.2500 ####[facility] [address] [place], [address] Basophils/100 WBC (Bld) 0.3 % Normal 0-1 [facility] Comment on above: Performed By: #### L 100.0100, L500.2500 ####[facility] [address] [place], [address] Eosinophils/100 WBC (Bld) 0.8 % Normal 0-5 [facility] Comment on above: Performed By: #### L 100.0100, L500.2500 ####[facility] [address] [place], [address] Erythrocyte distribution width (RBC) [Ratio] 13.8 % Normal 11.6-14.6 [facility] Comment on above: Performed By: #### L 100.0100, L500.2500 ####[facility] [address] [place], [address] Hematocrit (Bld) [Volume fraction] 37.4 % Normal 37-47 [facility] Comment on above: Performed By: #### L 100.0100, L500.2500 ####[facility] [address] [place], [address] Hemoglobin (Bld) [Mass/Vol] 12.0 g/dL Normal 12.0-15.0 [facility] Comment on above: Performed By: #### L 100.0100, L500.2500 ####[facility] [address] [place], [address] IG% 0.200 Normal 0.0-0.9 [facility] Comment on above: Result Comment: IG% - Immature Granulocytes (promyelocytes, myelocytes andmetamyelocytes) > 1% indicates that a LEFT SHIFT is Present. Performed By: #### L 100.0100, L500.2500 ####[facility] [address] [place], [address] Lymphocytes/100 WBC (Bld) 38.6 % Normal 19-41 [facility] Comment on above: Performed By: #### L 100.0100, L500.2500 ####[facility] [address] [place], [address] MCH (RBC) [Entitic mass] 30.0 pg Normal 27.0-32.0 [facility] Comment on above: Performed By: #### L 100.0100, L500.2500 ####[facility] [address] [place], [address] MCHC (RBC) [Mass/Vol] 32.1 g/dL Normal 32-36 [facility] Comment on above: Performed By: #### L 100.0100, L500.2500 ####[facility] [address] [place], [address] MCV (RBC) [Entitic vol] 93.5 fL Normal 81-99 [facility] Comment on above: Performed By: #### L 100.0100, L500.2500 ####[facility] [address] [place], [address] Monocytes/100 WBC (Bld) 8.5 % Normal 0-10 [facility] Comment on above: Performed By: #### L 100.0100, L500.2500 ####[facility] [address] [place], [address] Neutrophils/100 WBC (Bld) 51.6 % Normal 47-70 [facility] Comment on above: Performed By: #### L 100.0100, L500.2500 ####[facility] [address] [place], [address] Nucleated RBC (Bld) [#/Vol] 0 10*3/uL Normal 0-5 [facility] Comment on above: Performed By: #### L 100.0100, L500.2500 ####[facility] [address] [place], [address] Platelet mean volume (Bld) [Entitic vol] 10.4 fL Normal 6.2-12.0 [facility] Comment on above: Performed By: #### L 100.0100, L500.2500 ####[facility] [address] [place], [address] Platelets (Bld) [#/Vol] 167 10*3/uL Normal 150-450 [facility] Comment on above: Performed By: #### L 100.0100, L500.2500 ####[facility] [address] [place], [address] RBC (Bld) [#/Vol] 4.00 10*6/uL Low 4.2-5.4 [facility] Comment on above: Performed By: #### L 100.0100, L500.2500 ####[facility] [address] [place], [address] RDW SD 47.0 fl High 35.1-43.9 [facility] Comment on above: Performed By: #### L 100.0100, L500.2500 ####[facility] [address] [place], [address] WBC (Bld) [#/Vol] 6.6 10*3/uL Normal 4.4-11.0 [facility] Comment on above: Performed By: #### L 100.0100, L500.2500 ####[facility] [address] [place], [address] CTA Chest W/WO Contraston CTA Chest W/WO Contrast Normal [facility] Chest PA and Lateralon 09-09 Chest PA and Lateral Normal [facility] D-Dimer Quantitative (DVT/PE )on 09-09-2024 D-DIMER QUANT 0.72 FEU/ug/m Invalid Interpretation Code 0.27-0.49 [facility] Comment on above: Result Comment: CRIT ICAL VALUE CALLED TO ENEDELIA GARCIA RN ER09/09/24 1616 Adrienne Orozco.RESULTS READ BACK BY SAME .D-Dimer ELEVATED (>0.49): Additional studies and clinicalassessments are indicated to conclude diagnosis of:Deep Vein Thrombosis (DVT) or Pulmonary Embolism (PE) Performed By: #### L 300.3900, L300.4310, L503.6620, L300.8000 ####[facility] [address] [place], [address] Emergency Department Summary on 09-09-2024 Emergency Department Summary Normal [facility] L501.4020on 09-09-2024 TROPONIN-I HS 7 pg/mL Normal 3.0-54.0 [facility] Comment on above: Result Comment: Plea se Note: New Test Units and Gender Specific Reference Ranges. For more information see Policy Stat Procedure [place] High Sensitivity Troponin (TNIH) and attachments. Performed By: #### L 501.4020 ####[facility] [address] [place], [address] L501.5425on 09-09-2024 TROPONIN-I HS 5 pg/mL Normal 3.0-54.0 [facility] Comment on above: Order Comment: 1Y Result Comment: Plea se Note: New Test Units and Gender Specific Reference Ranges. For more information see Policy Stat Procedure [place] High Sensitivity Troponin (TNIH) and attachments. Performed By: #### L 100.0100, L501.5425 ####[facility] [address] [place], [address] Partial Thromboplast Timeon 09-09-2024 aPTT Coag (Bld) [Time] 21.2 s Low 24.1-36.2 [facility] Comment on above: Performed By: #### L 300.3900, L300.4310, L503.6620, L300.8000 ####[facility] [address] [place], [address] Prothrombin Time w/INRon INR Coag (PPP) [Relative time] 1.0 {INR} Normal [facility] Comment on above: Performed By: #### L 300.3900, L300.4310, L503.6620, L300.8000 ####[facility] [address] [place], [address] PT Coag (PPP) [Time] 13.3 s Normal 11.7-14.9 [facility] Comment on above: Performed By: #### L 300.3900, L300.4310, L503.6620, L300.8000 ####[facility] [address] [place], [address] Echo Completeon 08-25-2024 Echo Complete Normal [facility] PET+CT Guidance for localiza tion [...] cm. MUSCULOSKELETAL: * No metabolically active disease. 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: MARC Transcribe Date/Time: Aug 14 2024 12:13P Dictated by : RICK BOLAND MD This examination was interpreted and the report reviewed and electronically signed by: RICK BOLAND MD on Aug 14 2024 12:56PM [facility] * * *Final Report* * * DATE OF EXAM: Aug 13 2024 1:08PM [facility] 0060 - NM PET/CT SKULL-THIGH INIT / [...] * Uptake Time: 47 minutes * Radiopharmaceutical: B34-Koftkjxtrlhklwxztt (FDG) COMPARISON: No previous FDG PET/CT available [...] changes. Soft Tissues: No radiotracer avid lesion. [facility] Provider, [facility] 08/14/[facility]24 * * *Final Report* * * DATE OF EXAM: Aug 13 2024 1:08PM [facility] 0060 - NM PET/CT SKULL-THIGH INIT / [...] * Uptake Time: 47 minutes * Radiopharmaceutical: O04-Pyqiayhsompvhlvhox (FDG) COMPARISON: No previous FDG PET/CT available [...] cm. MUSCULOSKELETAL: * No metabolically active disease. 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-- W 18F-FDG IVOrdered By: Ccf Provider on 08-14-2024 [facility] GLUCOSE, BLOOD (POC)on 08-13 Glucose [Mass/Vol] 149 mg/dL Abnormal 74 - 99 mg/dL [facility] Comment on above: Location:[facility], [address] [place] [address], [facility] The Accu-Chek Inform II glucose meter has [...] Interpretation and review of laboratory results Abnormal [facility] NM PET/CT SKULL-THIGH INITon 08-13-2024 NM PET/CT SKULL-THIGH INIT * * *Final Report* * * DATE OF EXAM: Aug 13 2024 1:08PM [facility] 0060 - NM PET/CT SKULL-THIGH INIT / [...] * Uptake Time: 47 minutes * Radiopharmaceutical: L07-Aragfkobtkickbbtlv (FDG) COMPARISON: No previous FDG PET/CT available [...] cm. MUSCULOSKELETAL: * No metabolically active disease. 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 States that operating system programmer states he thinks her left side pain [...] Protocols used: Information Only Call - No [facility]-2024 36 S: Patient , Song, spoke with CAC nurse regarding no improvement on weakness or fatigue B: Onset of symptoms/concern 08/04/24 A: States they wanted to give status update on patient. Song states no improvement of weakness or fatigue after seeing manufacturing engineer or vascular surgeon. States patient will be seeing operating system programmer today at 230. Declined triage as they [...] Protocols used: Information Only Call - No Jfljba[facility]DVBBL[facility] Card[facility] Visit Reporton Cardiology Visit Report Normal [facility] MR/BMS.BVSon 08-03-2024 MR/BMS.BVS Normal [facility] Oncology Visit Reporton 07-23 Oncology Visit Report Normal [facility] CT Chest WO contrastOrdered By: Ccf Provider on 07-25-2024 Interpretation and review of laboratory results Abnormal [facility] Radiology Result ACTIONABLE Abnormal [facility] Comment on above: This report contains [...] contact your provider for the next steps. [facility] CT Chest WO contraston 07-25 IMPRESSION: [...] Code: CT_1 Recommendation: NM PET/MR WHOLE BODY ([id number]) Time Frame: At the discretion of the clinical team. COMMUNICATION: Results will be communicated with the ordering provider via [employer] staff message or phone message by [facility] [employer] within 2 business days of report finalization. --END OF FINDING-- 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: MARC Transcribe Date/Time: Jul 25 2024 7:50A Dictated by : LELA SCHULZ MD This examination was interpreted and the report reviewed and electronically signed by: LELA SCHULZ MD on Jul 25 2024 3:53PM [facility] * * *Final Report* * * DATE OF EXAM: Jul 21 2024 12:08PM [facility] 0541 - CT CHEST WO IVCON / [...] left-sided hydronephrosis. Partially visualized left renal cyst. [facility] Provider, Jeremias Cruz - 07/25/2024 * * *Final Report* * * DATE OF EXAM: Jul 21 2024 12:08PM [facility] 0541 - CT CHEST WO IVCON / [...] Code: CT_1 Recommendation: NM PET/MR WHOLE BODY ([id number]) Time Frame: At the discretion of the clinical team. COMMUNICATION: Results will be communicated with the ordering provider via [employer] staff message or phone message by [facility] within 2 business days of report finalization. --END OF FINDING-- 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: PSCArchana Transcribe Date/Time: Jul 25 2024 7:50A Dictated by : LELA SCHULZ MD This examination was interpreted and the report reviewed and electronically signed by: LELA SCHULZ MD on Jul 25 2024 3:53PM [facility] Pacemaker Checkon 07-25-2024 Pacemaker Check Normal [facility] CT CHEST WO IVCONon 07-21-20 CT CHEST WO IVCON * * *Final Report* * * DATE OF EXAM: Jul 21 2024 12:08PM [facility] 0541 - CT CHEST WO IVCON / [...] Code: CT_1 Recommendation: NM PET/MR WHOLE BODY ([id number]) Time Frame: At the discretion of the clinical team. COMMUNICATION: Results will be communicated with the ordering provider via [employer] staff message or phone message by [facility] within 2 business days of report finalization. --END OF FINDING-- 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: MARC Transcribe Date/Time: Jul 25 2024 7:50A Dictated by : LELA SCHULZ MD This examination was interpreted and the report reviewed and electronically signed by: LELA SCHULZ MD on Jul 25 2024 3:53PM EST [id number] ACTIONABLE Invalid Interpretation Code [facility] CT Chest WO contraston 07-21 Radiology Study observation (narrative) [facility] Gastroenterology Visit Repor ton 07-21-2024 Gastroenterology Visit Report Normal [facility] BASIC METABOLIC PANELon 06-23 Anion gap [Moles/Vol] 4 mmol/L Normal 3-13 [facility] Comment on above: Performed By: #### L [id number] ####Rouge Sifter: ANTOINE COOPER ([id number])[facility] ([facility])[address] Calcium [Mass/Vol] 9.1 mg/dL Normal 8.4-10.4 [facility] Comment on above: Performed By: #### L AB15 ####Rouge Sifter: ANTOINE COOPER ([id number])[facility] (SWRL[facility])[address] [place] [address] [place] Chloride [Moles/Vol] 103 mmol/L Normal 98-107 [facility] Comment on above: Performed By: #### L AB15 ####Rouge Sifter: ANTOINE COOPER ([id number])[facility] (SWRL[facility])[address] [place] [address] [place] CO2 [Moles/Vol] 30 mmol/L Normal 22-30 [facility] Comment on above: Performed By: #### L AB15 ####Rouge Sifter: ANTOINE COOPER ([phone])[facility] ([place])[address] Creatinine [Mass/Vol] 1.01 mg/dL Normal 0.52-1.04 [facility] Comment on above: Performed By: #### L AB15 ####Rouge Sifter: ANTOINE COOPER ([phone])[facility] ([place])[address] GLOMERULAR FILTRATION RATE ML/MIN/1.73 SQ M.PREDICTED 59.6 mL/min/1.73m*2 Low >60.0 [facility] Comment on above: Result Comment: Calc ulation based on the Chronic Kidney Disease Epidemiology Collaboration (CKD-EPI) equation refit without adjustment for race Performed By: #### L AB15 ####Rouge Sifter: ANTOINE COOPER ([phone])[facility] (SWRL[place])[address] Glucose [Mass/Vol] 191 mg/dL High 70-100 [facility] Comment on above: Performed By: #### L AB15 ####Rouge Sifter: ANTOINE COOPER ([phone])[facility] [place] (SWRL[place])[address] Potassium [Moles/Vol] 5.2 mmol/L High 3.5-5.1 [facility] Comment on above: Performed By: #### L AB15 ####Rouge Sifter: ANTOINE COOPER ([id number])[facility] [place] RITTM[place] (SWRLAB)[address] Sodium [Moles/Vol] 137 mmol/L Normal 135-145 [facility] Comment on above: Performed By: #### L AB15 ####Rouge Sifter: ANTOINE COOPER ([id number])[facility] [place] (SWRL[place])[address] Urea nitrogen [Mass/Vol] 31 mg/dL High 7-17 [facility] Comment on above: Performed By: #### L AB15 ####Rouge Sifter: ANTOINE COOPER ([id number])[facility] [place] (SWRLAB)[address] Basic metabolic 1998 panelon 07-20-2024 Anion gap [Moles/Vol] 4 mmol/L 3 - 13 mmol/L [facility] Calcium [Mass/Vol] 9.1 mg/dL 8.4 - 10. 4 mg/dL [facility] Chloride [Moles/Vol] 103 mmol/L 98 - 10 7 mmol/L [facility] CO2 [Moles/Vol] 30 mmol/L 22 - 30 mmol/L [facility] Creatinine [Mass/Vol] 1.01 mg/dL 0.52 - 1.04 mg/dL [facility] GFR/1.73 sq M.predicted (S/P/Bld) [Vol rate/Area] 59.6 mL/min Low - PINF [facility] Comment on above: Calculation based on the Chronic Kidney Disease Epidemiology Collaboration (CKD-EPI) equation refit without adjustment for race Glucose [Mass/Vol] 191 mg/dL High 70 - 100 mg/dL [facility] Interpretation and review of laboratory results Abnormal [facility] Potassium [Moles/Vol] 5.2 mmol/L High 3.5 - 5.1 mmol/L [facility] Sodium [Moles/Vol] 137 mmol/L 135 - 145 mmol/L [facility] Urea nitrogen [Mass/Vol] 31 mg/dL High 7 - 17 mg/dL [facility] CBC W Auto Differential pane l (Bld)on 07-20-2024 Basophils (Bld) [#/Vol] 0 10*3/uL 0.0 - 0.2 10*3/uL [facility] Basophils/100 WBC (Bld) 0.5 % 0.0 - 2.0 % [facility] Eosinophils (Bld) [#/Vol] 0.1 10*3/uL 0.0 - 0.5 10*3/uL [facility] Eosinophils/100 WBC (Bld) 2.3 % 0.0 - 6.0 % [facility] Erythrocyte distribution width (RBC) [Ratio] 14.2 % 11.5 - 15.0 % [facility] Hematocrit (Bld) [Volume fraction] 32.9 % Low 35.0 - 47.0 % [facility] Hemoglobin (Bld) [Mass/Vol] 10.6 g/dL Low 11.7 - 16.0 g/dL [facility] Immature granulocytes (Bld) [#/Vol] 0 10*3/uL NINF - 0.1 10*3/uL [facility] [employer] Immature granulocytes/100 WBC (Bld) 0.2 % 0.0 - 2.0 % [facility] Interpretation and review of laboratory results Abnormal [facility] Lymphocytes (Bld) [#/Vol] 2.1 10*3/uL 1.0 - 4.3 10*3/uL [facility] [employer] Lymphocytes/100 WBC (Bld) 37 % 15.0 - 45.0 % [facility] MCH (RBC) [Entitic mass] 30.7 pg 26.0 - 34.0 pg [facility] MCHC (RBC) [Mass/Vol] 32.2 % 30.5 - 36.0 % [facility] MCV (RBC) [Entitic vol] 95.4 fL 77.0 - 99.0 fL [facility] Monocytes (Bld) [#/Vol] 0.5 10*3/uL 0.0 - 0.9 10*3/uL [facility] Monocytes/100 WBC (Bld) 8.4 % 5.0 - 13.0 % [facility] Neutrophils (Bld) [#/Vol] 3 10*3/uL 1.8 - 7.5 10*3/uL [facility] Neutrophils/100 WBC (Bld) 51.6 % 38.0 - 82.0 % [facility] Nucleated RBC/100 WBC (Bld) [Ratio] 0 % [facility] Platelet mean volume (Bld) [Entitic vol] 10.7 fL 9.0 - 12.7 fL [facility] Comment on above: MPV is a calculated measurement using platelet volume ratio Platelets (Bld) [#/Vol] 172 10*3/uL 140 - 440 10*3/uL [facility] RBC (Bld) [#/Vol] 3.45 10*6/uL Low 3.80 - 5.20 10*6/uL [facility] WBC (Bld) [#/Vol] 5.7 10*3/uL 3.6 - 10.7 10*3/uL [facility] CBC WITH AUTO DIFFERENTIALon 07-20-2024 Basophils (Bld) [#/Vol] 0.0 10*3/uL Normal 0.0-0.2 [facility] Comment on above: Performed By: #### L [id number] #### Rouge Sifter: ANTOINE COOPER ([id number]) [facility] [address] [place] [address] Basophils/100 WBC (Bld) 0.5 % Normal 0.0-2.0 [facility] Comment on above: Performed By: #### L [id number] #### Rouge Sifter: ANTOINE COOPER ([id number]) [facility] [place] RITTMAN (SWRLAB) [address] [place] [address] Eosinophils (Bld) [#/Vol] 0.1 10*3/uL Normal 0.0-0.5 [facility] Comment on above: Performed By: #### L [id number] #### Rouge Sifter: ANTOINE COOPER ([id number]) [facility] [place] [facility] (SWRL[place]) [address] [place] [address] Eosinophils/100 WBC (Bld) 2.3 % Normal 0.0-6.0 [facility] Comment on above: Performed By: #### L [id number] #### Rouge Sifter: ANTOINE COOPER ([id number]) [facility] [place] ([place]) [address] [place] [address] Erythrocyte distribution width (RBC) [Ratio] 14.2 % Normal 11.5-15.0 [facility] Comment on above: Performed By: #### L [id number] #### Rouge Sifter: ANTOINE COOPER ([id number]) [facility] [place] ([place]) [address] [place] [address] Hematocrit (Bld) [Volume fraction] 32.9 % Low 35.0-47.0 [facility] Comment on above: Performed By: #### L [id number] #### Rouge Sifter: ANTOINE COOPER ([id number]) [facility] [place] [place] ([place]) [address] [place] [address] Hemoglobin (Bld) [Mass/Vol] 10.6 g/dL Low 11.7-16.0 [facility] Comment on above: Performed By: #### L [id number] #### Rouge Sifter: ANTOINE COOPER ([id number]) [facility] [place] [place] ([place]) [address] [place] [address] IMMATURE GRANS % 0.2 % Normal 0.0-2.0 [facility] Comment on above: Performed By: #### L [id number] #### Rouge Sifter: ANTOINE COOPER ([id number]) [facility] [place] ([place]) [address] [place] [address] IMMATURE GRANS ABSOLUTE 0.0 10*3/uL Normal <0.1 [facility] Comment on above: Performed By: #### L [id number] #### Rouge Sifter: ANTOINE COOPER ([id number]) [facility] [place] ([place]) [address] [place] [address] Lymphocytes (Bld) [#/Vol] 2.1 10*3/uL Normal 1.0-4.3 [facility] Comment on above: Performed By: #### L [id number] #### Rouge Sifter: ANTOINE COOPER ([phone]) [facility] [place] ([place]) [address] [place] [address] Lymphocytes/100 WBC (Bld) 37.0 % Normal 15.0-45.0 [facility] Comment on above: Performed By: #### L [id number] #### Rouge Sifter: ANTOINE COOPER ([phone]) [facility] [place] ([place]) [address] [place] [address] MCH (RBC) [Entitic mass] 30.7 pg Normal 26.0-34.0 [facility] Comment on above: Performed By: #### L [id number] #### Rouge Sifter: ANTOINE COOPER ([phone]) [facility] [place] ([place]) [address] [place] [address] MCHC 32.2 % Normal 30.5-36.0 [facility] Comment on above: Performed By: #### L [id number] #### Rouge Sifter: ANTOINE COOPER ([id number]) [facility] [place] ([place]) [address] [place] [address] MCV (RBC) [Entitic vol] 95.4 fL Normal 77.0-99.0 [facility] Comment on above: Performed By: #### L [id number] #### Rouge Sifter: ANTOINE COOPER ([id number]) [facility]SEMANUEL [place] R[place] (SWRL[place]) [address] [place] [address] Monocytes (Bld) [#/Vol] 0.5 10*3/uL Normal 0.0-0.9 [facility] Comment on above: Performed By: #### L [id number] #### Rouge Sifter: ANTOINE COOPER ([id number]) [facility] [place] (SWRL[place]) [address] [place] [address] [place] Monocytes/100 WBC (Bld) 8.4 % Normal 5.0-13.0 [facility] Comment on above: Performed By: #### L [id number] #### Rouge Sifter: ANTOINE COOPER ([phone]) [facility] [place] [facility] (SWRL[place]) [address] [place] [address] [place] NEUTROPHILS ABSOLUTE 3.0 10*3/uL Normal 1.8-7.5 [facility] Comment on above: Performed By: #### L [id number] #### Rouge Sifter: ANTOINE COOPER ([phone]) [facility] [place] (SWRL[place]) [address] [place] [address] [place] Neutrophils/100 WBC (Bld) 51.6 % Normal 38.0-82.0 [facility] Comment on above: Performed By: #### L [id number] #### Rouge Sifter: ANTOINE COOPER ([id number]) [facility] [place] (SWRL[place]) [address] [place] [address] [place] NRBC 0.0 /100 WBCs Normal 0.0-2.0 [facility] Comment on above: Performed By: #### L [id number] #### Rouge Sifter: ANTOINE COOPER ([id number]) [facility] [place] [facility] ([place]RL[place]) [address] [place] [address] [place] Platelet mean volume (Bld) [Entitic vol] 10.7 fL Normal 9.0-12.7 [facility] Comment on above: Result Comment: MPV is a calculated measurement using platelet volume ratio Performed By: #### L [id number] #### Rouge Sifter: ANTOINE COOPER ([id number]) [facility] VELAZQUEZNATHAN RITTMAN (SWRLAB) [address] [place] [address] Platelets (Bld) [#/Vol] 172 10*3/uL Normal 140-440 [facility] Comment on above: Performed By: #### L [id number] #### Rouge Sifter: ANTOINE COOPER ([id number]) [facility] VELAZQUEZNATHAN RITTMAN (SWRLAB) [address] [place] [address] RBC (Bld) [#/Vol] 3.45 10*6/uL Low 3.80-5.20 [facility] Comment on above: Performed By: #### L [id number] #### Rouge Sifter: ANTOINE COOPER ([id number]) [facility] VELAZQUEZNATHAN RITTMAN (SWRLAB) [address] [place] [address] WBC (Bld) [#/Vol] 5.7 10*3/uL Normal 3.6-10.7 [facility] Comment on above: Performed By: #### L [id number] #### Rouge Sifter: ANTOINE COOPER ([id number]) [facility] [place] (SWRL[place]) [address] [place] [address] 12 Lead EKG performed by [facility] on 07-19-2024 12 Lead EKG performed by [facility] Normal [facility] Cardiology Visit Reporton Cardiology Visit Report Normal [facility] Activated partial thrombopla stin time (aPTT) in platelet poor plasma by coagulation aOrdered By: Luigi Tinoco on 07-17-2024 aPTT Coag (Bld) [Time] 23.6 s Low 24.1-36.2 [facility] Comment on above: Order Comment: SEND OUT NOT ORDERABLE TEST TO [facility] ANYMORE PER PATTIE WISE Performed By: #### L 300.3900, L100.0100, L503.6550, L300.4310, L503.6030, L503.0105, L100.9950 ####[facility] [address] [place], [address] aPTT Coag (PPP) [Time] 23.6 s Low 24.1-36.2 [facility] CBC W/Diff, Automatedon 06-23 Absolute Lymph 1.34 X10 3/uL Normal 0.83-4.51 [facility] Comment on above: Performed By: #### L 300.3900, L100.0100, L503.6550, L300.4310, L503.6030, L503.0105, L100.9950 ####[facility] [address] [place], [address] Absolute Neut 3.0 X10 3/uL Normal 2.0-7.7 [facility] Comment on above: Performed By: #### L 300.3900, L100.0100, L503.6550, L300.4310, L503.6030, L503.0105, L100.9950 ####[facility] [address] [place], [address] Basophils/100 WBC (Bld) 0.8 % Normal 0-1 [facility] Comment on above: Performed By: #### L 300.3900, L100.0100, L503.6550, L300.4310, L503.6030, L503.0105, L100.9950 ####[facility] [address] [place], [address] Eosinophils/100 WBC (Bld) 2.4 % Normal 0-5 [facility] Comment on above: Performed By: #### L 300.3900, L100.0100, L503.6550, L300.4310, L503.6030, L503.0105, L100.9950 ####[facility] [address] [place], [address] Erythrocyte distribution width (RBC) [Ratio] 14.1 % Normal 11.6-14.6 [facility] Comment on above: Performed By: #### L 300.3900, L100.0100, L503.6550, L300.4310, L503.6030, L503.0105, L100.9950 ####[facility] [address] [place], [address] Hematocrit (Bld) [Volume fraction] 33.4 % Low 37-47 [facility] Comment on above: Performed By: #### L 300.3900, L100.0100, L503.6550, L300.4310, L503.6030, L503.0105, L100.9950 ####[facility] [address] [place], [address] Hemoglobin (Bld) [Mass/Vol] 10.2 g/dL Low 12.0-15.0 [facility] Comment on above: Performed By: #### L 300.3900, L100.0100, L503.6550, L300.4310, L503.6030, L503.0105, L100.9950 ####[facility] [address] [place], [address] IG% 0.200 Normal 0.0-0.9 [facility] Comment on above: Result Comment: IG% - Immature Granulocytes (promyelocytes, myelocytes andmetamyelocytes) > 1% indicates that a LEFT SHIFT is Present. Performed By: #### L 300.3900, L100.0100, L503.6550, L300.4310, L503.6030, L503.0105, L100.9950 ####[facility] [address] [place], [address] Lymphocytes/100 WBC (Bld) 26.9 % Normal 19-41 [facility] Comment on above: Performed By: #### L 300.3900, L100.0100, L503.6550, L300.4310, L503.6030, L503.0105, L100.9950 ####[facility] [address] [place], [address] MCH (RBC) [Entitic mass] 29.7 pg Normal 27.0-32.0 [facility] Comment on above: Performed By: #### L 300.3900, L100.0100, L503.6550, L300.4310, L503.6030, L503.0105, L100.9950 ####[facility] [address] [place], [address] MCHC (RBC) [Mass/Vol] 30.5 g/dL Low 32-36 [facility] Comment on above: Performed By: #### L 300.3900, L100.0100, L503.6550, L300.4310, L503.6030, L503.0105, L100.9950 ####[facility] [address] [place], [address] MCV (RBC) [Entitic vol] 97.1 fL Normal 81-99 [facility] Comment on above: Performed By: #### L 300.3900, L100.0100, L503.6550, L300.4310, L503.6030, L503.0105, L100.9950 ####[facility] [address] [place], [address] Monocytes/100 WBC (Bld) 8.8 % Normal 0-10 [facility] Comment on above: Performed By: #### L 300.3900, L100.0100, L503.6550, L300.4310, L503.6030, L503.0105, L100.9950 ####[facility] [address] [place], [address] Neutrophils/100 WBC (Bld) 60.9 % Normal 47-70 [facility] Comment on above: Performed By: #### L 300.3900, L100.0100, L503.6550, L300.4310, L503.6030, L503.0105, L100.9950 ####[facility] [address] [place], [address] Nucleated RBC (Bld) [#/Vol] 0 10*3/uL Normal 0-5 [facility] Comment on above: Performed By: #### L 300.3900, L100.0100, L503.6550, L300.4310, L503.6030, L503.0105, L100.9950 ####[facility] [address] [place], [address] Platelet mean volume (Bld) [Entitic vol] 10.6 fL Normal 6.2-12.0 [facility] Comment on above: Performed By: #### L 300.3900, L100.0100, L503.6550, L300.4310, L503.6030, L503.0105, L100.9950 ####[facility] [address] [place], [address] Platelets (Bld) [#/Vol] 193 10*3/uL Normal 150-450 [facility] Comment on above: Performed By: #### L 300.3900, L100.0100, L503.6550, L300.4310, L503.6030, L503.0105, L100.9950 ####[facility] [address] [place], [address] RBC (Bld) [#/Vol] 3.44 10*6/uL Low 4.2-5.4 [facility] Comment on above: Performed By: #### L 300.3900, L100.0100, L503.6550, L300.4310, L503.6030, L503.0105, L100.9950 ####[facility] [address] [place], [place], [address] RDW SD 50.0 fl High 35.1-43.9 [facility] Comment on above: Performed By: #### L 300.3900, L100.0100, L503.6550, L300.4310, L503.6030, L503.0105, L100.9950 ####[facility] [address] [place], [place], [address] WBC (Bld) [#/Vol] 5.0 10*3/uL Normal 4.4-11.0 [facility] Comment on above: Performed By: #### L 300.3900, L100.0100, L503.6550, L300.4310, L503.6030, L503.0105, L100.9950 ####[facility] [address] [place], [place], [address] Ferritinon 07-17-2024 Ferritin [Mass/Vol] 58 ng/mL Normal 8-252 [facility] Comment on above: Order Comment: SEND OUT NOT ORDERABLE TEST TO [facility] ANYMORE PER KELSEYNOTIFIED SHANDALE Performed By: #### L 300.3900, L100.0100, L503.6550, L300.4310, L503.6030, L503.0105, L100.9950 ####[facility] [address] [place], [place], [id number] International normalized rat io (INR) calculationOrdered By: Luigi Tinoco on 07-17-2024 INR Coag (Bld) [Relative time] 1.0 {INR} [facility] Iron+Iron Binding Capacityon 07-17-2024 Iron [Mass/Vol] 40 ug/dL Low 50-170 [facility] Comment on above: Order Comment: SEND OUT NOT ORDERABLE TEST TO [facility] ANYMORE PER KELSEYNOTIFIED SHANDALE Performed By: #### L 300.3900, L100.0100, L503.6550, L300.4310, L503.6030, L503.0105, L100.9950 ####[facility] [address] [place], [address] IRON SATURATION 16.7 Normal 15.0-55.0 [facility] Comment on above: Order Comment: SEND OUT NOT ORDERABLE TEST TO [facility] ANYMORE PER KELSEYNOTIFIED SHANDALE Performed By: #### L 300.3900, L100.0100, L503.6550, L300.4310, L503.6030, L503.0105, L100.9950 ####[facility] [address] [place], [address] TIBC 239 ug/dL Low 250-450 [facility] Comment on above: Order Comment: SEND OUT NOT ORDERABLE TEST TO [facility] ANYMORE PER [facility]IF[facility] Performed By: #### L 300.3900, L100.0100, L503.6550, L300.4310, L503.6030, L503.0105, L100.9950 ####[facility] [address] [place], [address] Miscellaneous Lab Procedureo n 07-17-2024 MISC LAB TEST Normal [facility] Comment on above: Order Comment: Comme nts: [id number] BLUE, 5ML WB-TALL LAV, 1 SERUMhypercoagulable work up [id number] Result Comment: TEST RESULTS LIMITSVenous Thromb. Patients [...] was developed and its performancecharacteristics determined by [employer]. It has not been cleared orapproved by the Food and Drug Administration. Factor VII Antigen 124 % Reference Range: 7 months and older: 60 - 175 Results of this test are for research purposes only per the assay blue print control clerk. The performance characteristicsof this assay have not been established. The result shouldnot be used as a diagnostic procedure without confirmation of the diagnosis by another medically established diagnostic product or procedure. Protein C Ag/FVII Ag Ratio 0.9 ratio Reference Range: 0.5 - 2.2 Results of this test are for research purposes only per the assay blue print control clerk. The performance characteristicsof this assay have not been established. The result shouldnot be used as a diagnostic procedure without confirmation of the diagnosis by another medically established diagnostic product or procedure.Protein S Ag/FVII Ag Ratio 0.6 ratio Reference Range: 0.5 - 2.2 Results of this test are for research purposes only per the assay blue print control clerk. The performance characteristicsof this assay have not [...] and older: 22.9 - 30.2 APTT 1:1 CLERK TYPIST Testing Not Indicated This test was developed and its performancecharacteristics determined by [employer]. It has not been cleared orapproved [...] repeat testing may be indicated. Please contact [employer] if further clarification is needed. DRVVT Screen [...] Gene Mutation Result G-G (Normal-Normal) No prothrombin [id number] mutation present. Interpretation: While the patient does not possess this risk factor,other thrombotic risk factors may be detected throughsystematic clinical laboratory analysis. Methodology: Patient DNA was evaluated for [place] [address] using PCR amplification followed by restriction analysis and gel electrophoresis. Comments: Simultaneous Risks: If a patient possesses two or more congenital or acquired thrombophilic risk factors, therisk of thrombosis may rise to more than the sum of the risk ratios for the individual risk factors. For instance, a combination of the prothrombin [id number] mutation and the factor V Leiden mutation [...] personnel. This assay detects only the prothrombin B01073K mutation and does not detect other genetic abnormalities. This test was developed and its performancecharacteristics determined by [employer]. It has not been cleared orapproved by the Food and Drug Administration. References: Fortino K, et al. Br J of Haem. 1997;98:907. Ellen AM, et al. Br J of Haem. 1997;98:353. [place]-D[facility] J[facility]ani Mol.Diagn. 2001;6(3):201. Greer Garcia, et al. Thromb Haemost. 2001;86:809-16. Grace Baca, et al. Thromb Haemost. 1999;82:1583. TESTING PERFORMED AT [facility]. ORIGINAL REPORT ON FILE IN LAB CONTAINS ADDITIONAL TEST SITE INFORMATION. Performed By: #### L 2100.0000, L801.1541, L300.3900, L3100.5440, L3100.3425, L3410.2400, L3300.1200, L500.4050 ####[facility] [address] [place], [place], [id number] Oncology Visit Reporton 06-23 Oncology Visit Report Normal [facility] Prothrombin Time w/INRon INR Coag (PPP) [Relative time] 1.0 {INR} Normal [facility] Comment on above: Order Comment: SEND OUT NOT ORDERABLE TEST TO [facility] ANYMORE PER KELSEYNOTIFIED SHANDALE Performed By: #### L 300.3900, L100.0100, L503.6550, L300.4310, L503.6030, L503.0105, L100.9950 ####[facility] [address] [place], [place], [address] Prothrombin timeOrdered By: Luigi Tinoco on 07-17-2024 PT Coag (PPP) [Time] 13.3 s Normal 11.7-14.9 [facility] Comment on above: Order Comment: SEND OUT NOT ORDERABLE TEST TO [facility] ANYMORE PER KELSEYNOTIFIED SHANDALE Performed By: #### L 300.3900, L100.0100, L503.6550, L300.4310, L503.6030, L503.0105, L100.9950 ####[facility] [address] [place], [place], [address] Retic Panelon 07-17-2024 IM RET FRACTION 22.20 High 3.00-15.90 [facility] Comment on above: Performed By: #### L 300.3900, L100.0100, L503.6550, L300.4310, L503.6030, L503.0105, L100.9950 ####[facility] [address] [place], [place], [id number] RET-HE 32.5 pg Normal 30-35 [facility] Comment on above: Performed By: #### L 300.3900, L100.0100, L503.6550, L300.4310, L503.6030, L503.0105, L100.9950 ####[facility] [address] [place], [address] Retic Count 2.71 High 0.5-1.5 [facility] Comment on above: Performed By: #### L 300.3900, L100.0100, L503.6550, L300.4310, L503.6030, L503.0105, L100.9950 ####[facility] [address] [place], [address] Vitamin B12 measurementOrder ed By: Luigi Tinoco on 07-17-2024 Cobalamin (Vitamin B12) [Mass/Vol] 1211 pg/mL High 211-911 [facility] Comment on above: Order Comment: SEND OUT NOT ORDERABLE TEST TO [facility] ANYMORE PER AVISSEYNOTLAUREN RESENDEZALE Performed By: #### L 300.3900, L100.0100, L503.6550, L300.4310, L503.6030, L503.0105, L100.9950 ####[facility] [address] [place], [place], [address] Protein C Defic. Profileon 0 07-14-2024 PROTEIN C,FUNC TNP Normal [facility] Comment on above: Performed By: #### L 3100.8410, L4500.5000, L3410.2000, L3100.2300, L4500.2000, L3100.7325, L3100.7275, L3300.0450, L3100.3425 ####[facility] [address] [place], [address] AT III Func / Immunolon 08-2 AT3 AG, IMMUNOL 65 Abnormal 72-124 [facility] Comment on above: Result Comment: This test was developed and its performance characteristicsdetermined by [facility]. It has not been cleared orapproved by the Food and Drug Administration. Performed By: #### L 3100.8410, L4500.5000, L3410.2000, L3100.2300, L4500.2000, L3100.7325, L3100.7275, L3300.0450, L3100.3425 ####[facility] [address] [place], [place], [address](455) AT3 FUNCTIONAL 89 Normal 75-135 [facility] Comment on above: Result Comment: Dire ct Xa inhibitor anticoagulants such as rivaroxaban,apixaban and edoxaban will lead to spuriously elevatedantithrombin activity levels possibly masking a deficiency. Performed By: #### L 3100.8410, L4500.5000, L3410.2000, L3100.2300, L4500.2000, L3100.7325, L3100.7275, L3300.0450, L3100.3425 ####[facility] [address] [place], [place], [phone](151) Anticardiolipin IgG, IgMon 0 - Anticardio.IgG < 9 Normal 0-14 [facility] Comment on above: Result Comment: Nega tive: <15 Indeterminate: 15 - 20 Low-Med Positive: >20 - 80 High Positive: >80 Performed By: #### L 3100.8410, L4500.5000, L3410.2000, L3100.2300, L4500.2000, L3100.7325, L3100.7275, L3300.0450, L3100.3425 ####[facility] [address] [place], [place], [phone](455) Anticardio.IgM < 9 Normal 0-12 [facility] Comment on above: Result Comment: Nega tive: <13 Indeterminate: 13 - 20 Low-Med Positive: >20 - 80 High Positive: >80 Performed By: #### L 3100.8410, L4500.5000, L3410.2000, L3100.2300, L4500.2000, L3100.7325, L3100.7275, L3300.0450, L3100.3425 ####[facility] [address] [place], [place], [id number] Beta-2 Glycoprot IgG, A, 07-13-2024 B2 GLYCO I IGA <9 Normal 0-25 [facility] Comment on above: Result Comment: Resu lt Units: GPI IgA unitsThe reference interval reflects a 3SD or 99th percentileinterval, which is thought to represent a potentiallyclinically significant result in accordance with theInternational Consensus Statement on the classificationcriteria for definitive antiphospholipid syndrome (APS). JThromb Haem 2006;4:295-306. Performed By: #### L 3100.8410, L4500.5000, L3410.2000, L3100.2300, L4500.2000, L3100.7325, L3100.7275, L3300.0450, L3100.3425 ####[facility] [address] [place], [place], [phone] B2 GLYCO I IGG <9 Normal 0-20 [facility] Comment on above: Result Comment: Resu lt Units: GPI IgG unitsThe reference interval reflects a 3SD or 99th percentileinterval, which is thought to represent a potentiallyclinically significant result in accordance with theInternational Consensus Statement on the classificationcriteria for definitive antiphospholipid syndrome (APS). JThromb Haem 2006;4:295-306. Performed By: #### L 3100.8410, L4500.5000, L3410.2000, L3100.2300, L4500.2000, L3100.7325, L3100.7275, L3300.0450, L3100.3425 ####[facility] [address] [place], [place], [address] B2 GLYCO I IGM <9 Normal 0-32 [facility] Comment on above: Result Comment: Resu lt Units: GPI IgM unitsThe reference interval reflects a 3SD or 99th percentileinterval, which is thought to represent a potentiallyclinically significant result in accordance with theInternational Consensus Statement on the classificationcriteria for definitive antiphospholipid syndrome (APS). JThromb Haem 2006;4:295-306. Performed By: #### L 3100.8410, L4500.5000, L3410.2000, L3100.2300, L4500.2000, L3100.7325, L3100.7275, L3300.0450, L3100.3425 ####[facility] [address] [place], [place], [address] Carcinoembryonic Antigenon 0 07-13-2024 CEA 2.3 ng/mL Normal 0.0-4.7 [facility] Comment on above: Result Comment: Nons mokers <3.9 Smokers <5.6Roche [employer]ostics Electrochemiluminescence Immunoassay(ECLIA)Values obtained with different assay methods or kitscannot be used interchangeably. Results cannot beinterpreted as absolute evidence of the presence orabsence of malignant disease.Performed at: [employer] [address] [id number] Director: Bulmaro Nesbitt PhD, Phone: [phone] at: [facility] [employer] [id number] Director: Stanton Vargas MD, Phone: [phone] at: [facility] [employer] TechnologyDavid [place] [id number] [place], [place] [id number] Director: Jacki Amador [facility], Phone: [phone] Performed By: #### L 3100.8410, L4500.5000, L3410.2000, L3100.2300, L4500.2000, L3100.7325, L3100.7275, L3300.0450, L3100.3425 ####[facility] [address] [place], [place], [address] Fact V Leiden Mutationon FACTOR V LEIDEN Comment Normal . [facility] Comment on above: Result Comment: Resu lt: c.1601G>A (p.Ftt240Ahi) - Not DetectedThis result is not associated with an increased risk for venousthromboembolism. See Additional Clinical Information andComments.Additional Clinical Information:Venous thromboembolism is a multifactorial diseaseinfluenced by genetic, environmental, and circumstantialrisk factors. The c.1601G>A (p. Xkl535Zdc) variant in theF5 gene, commonly referred to [...] F2 c.*97G>Avariant and Factor V Leiden (PMID: 86727969). Additionalrisk factors include but are not limited [...] for health careproviders to discuss results at [phone] ([phone]).Test Details:Variant Analyzed: c.1601G>A (p. Wky100Ewy), referred toas Factor V LeidenMethods/Limitations:DNA analysis of [...] was developed and its performance characteristicsdetermined by [facility]. It has not been cleared orapproved by the Food and Drug Administration.References:Jalil S, Della BURNHAM, Everton R, Brian WW, Eric JH; ACMGProfessional Practice and Guidelines Committee. Addendum:[employer] consensus statement onfactor V Leiden mutation testing. Lyndsey Med. 2020Jan 24.doi: 10.1038/r87198-318-62889-b. PMID: 14424707.Ximena CRADENAS. Factor V Leiden Thrombophilia. 1998April 04(Updated 2017Nov 25). In: Eulogio MP, Brittney HH, Chantell RA,et al., editors. ZachariahLiquidia Technologiesromero(R) (Internet). [place] ([place]):[facility], [place]; [phone]. Availablefrom: https://www.ncbi.nlm.nih.gov/books/GOY0083/Al S, Della BURNHAM, Wang X, Jeffery B, Desirae EB, Symone P,Timothy CS; ACMG Laboratory Air And Hydronic Balancing Technician Committee.Venous thromboembolism laboratory testing (factor V Leidenand factor II c.*97G>A), 2018 update: a technical standardof the [employer] and Genomics(ACMG). Lyndsey Med. 2018 Oct;20(12):3105-2752. doi:10.1038/[id number]-l. Epub 2017Aug 26. PMID: 07006279. Performed By: #### L 3100.8410, L4500.5000, L3410.2000, L3100.2300, L4500.2000, L3100.7325, L3100.7275, L3300.0450, L3100.3425 ####[facility] [address] [place], [place], [address] Reviewed By Comment Normal . [facility] Comment on above: Result Comment: Tech nical Component performed at [facility] RTPProfessional Component performed by:Dorothy Stahl, Ph.D., FACMGDirector, Molecular [address] [facility] [place] [address] Performed By: #### L 3100.8410, L4500.5000, L3410.2000, L3100.2300, L4500.2000, L3100.7325, L3100.7275, L3300.0450, L3100.3425 ####[facility] [address] [place], [address] Factor II, DNA Analysison FACTOR II, DNA Comment Normal . [facility] Comment on above: Result Comment: Resu lt: [...] in theF2 gene and a c.1601G>A (p. Agk434Nyt) variant in the F5 gene(commonly referred to as Factor V Leiden) have an approximately 20-fold increased risk for venous thromboembolism. Risks are likely soren even higher in more complex genotype combinations involving theF2 c.*97G>A variant and Factor V Leiden (PMID: 86989531). Additionalrisk factors include but are not limited [...] for health care providers to discussresults at [phone] ([phone]).Test Details:Variant analyzed: c.*97G>A, previously referred to as L21309GGvahvjn/Limitations:DNA analysis of the F2 gene (NM_000506.5) was [...] was developed and its performance characteristics determinedby [facility]. It has not been cleared or approved by the Food and DrugAdministration.References:Jalil Mccracken, Della BURNHAM, Everton R, Brian WW, Eric JH; ACMG ProfessionalPractice and Guidelines Committee. Addendum: [employer] consensus statement on factor V Leiden mutationtesting. Lyndsey Med. 2020Jan 24. doi: 10.1038/[id number]-s.PMID: 27250572.Ximena CARDENAS. Prothrombin Thrombophilia. 2005Jun 15[Updated 2020Dec 26]. In: Eulogio MP, Brittney HH, Chantell RA, et al.,editors. Gloria(R) [Internet]. [place] ([place]): [facility]; 7621-0265. Available from:https://www.ncbi.nlm.nih.gov/books/EXA7886/Al Mccracken, Della BURNHAM, Wang X, Jeffery B, Desirae EB, Symone P, Timothy CS;ACMG Laboratory Air And Hydronic Balancing Technician Committee. Venous thromboembolismlaboratory testing (factor V Leiden and factor II c.*97G>A),2018 update: a technical standard of the [employer] MedicalGenetics and Genomics (ACMG). Lyndsey Med. 2018 Oct;20(12):1087-9654.doi: 10.1038/[id number]-j. Epub 2017Aug 26. PMID: 15781382. Performed By: #### L 3100.8410, L4500.5000, L3410.2000, L3100.2300, L4500.2000, L3100.7325, L3100.7275, L3300.0450, L3100.3425 ####[facility] [address] [place], [address] DARIANA + Protein Elect, Serumon 07-13-2024 Albumin [Mass/Vol] 3.1 g/dL Normal 2.9-4.4 [facility] Comment on above: Performed By: #### L 3100.8410, L4500.5000, L3410.2000, L3100.2300, L4500.2000, L3100.7325, L3100.7275, L3300.0450, L3100.3425 ####[facility] [address] [place], [address] Albumin/Globulin [Mass ratio] 1.1 {ratio} Normal 0.7-1.7 [facility] Comment on above: Performed By: #### L 3100.8410, L4500.5000, L3410.2000, L3100.2300, L4500.2000, L3100.7325, L3100.7275, L3300.0450, L3100.3425 ####[facility] [address] [place], [address] BQUDX-9-JKAW 0.3 g/dL Normal 0.0-0.4 [facility] Comment on above: Performed By: #### L 3100.8410, L4500.5000, L3410.2000, L3100.2300, L4500.2000, L3100.7325, L3100.7275, L3300.0450, L3100.3425 ####[facility] [address] [place], [address] QUVDT-7-ZVRN 1.0 g/dL Normal 0.4-1.0 [facility] Comment on above: Performed By: #### L 3100.8410, L4500.5000, L3410.2000, L3100.2300, L4500.2000, L3100.7325, L3100.7275, L3300.0450, L3100.3425 ####[facility] [address] [place], [address] BETA GLOBULIN 0.7 g/dL Normal 0.7-1.3 [facility] Comment on above: Performed By: #### L 3100.8410, L4500.5000, L3410.2000, L3100.2300, L4500.2000, L3100.7325, L3100.7275, L3300.0450, L3100.3425 ####[facility] [address] [place], [address] GAMMA GLOBULIN 1.0 g/dL Normal 0.4-1.8 [facility] Comment on above: Performed By: #### L 3100.8410, L4500.5000, L3410.2000, L3100.2300, L4500.2000, L3100.7325, L3100.7275, L3300.0450, L3100.3425 ####[facility] [address] [place], [address] Globulin (S) [Mass/Vol] 3.0 g/dL Normal 2.2-3.9 [facility] Comment on above: Performed By: #### L 3100.8410, L4500.5000, L3410.2000, L3100.2300, L4500.2000, L3100.7325, L3100.7275, L3300.0450, L3100.3425 ####[facility] [address] [place], [address] DARIANA RESULT,S Comment Normal . [facility] Comment on above: Result Comment: No m onoclonality detected. Performed By: #### L 3100.8410, L4500.5000, L3410.2000, L3100.2300, L4500.2000, L3100.7325, L3100.7275, L3300.0450, L3100.3425 ####[facility] [address] [place], [address] IMMUNOGLOB A QN 197 mg/dL Normal 64-422 [facility] Comment on above: Performed By: #### L 3100.8410, L4500.5000, L3410.2000, L3100.2300, L4500.2000, L3100.7325, L3100.7275, L3300.0450, L3100.3425 ####[facility] [address] [place], [address] IMMUNOGLOB G QN 1037 mg/dL Normal 586-1602 [facility] Comment on above: Performed By: #### L 3100.8410, L4500.5000, L3410.2000, L3100.2300, L4500.2000, L3100.7325, L3100.7275, L3300.0450, L3100.3425 ####[facility] [address] [place], [place], [phone] IMMUNOGLOB M QN 52 mg/dL Normal 26-217 [facility] Comment on above: Performed By: #### L 3100.8410, L4500.5000, L3410.2000, L3100.2300, L4500.2000, L3100.7325, L3100.7275, L3300.0450, L3100.3425 ####[facility] [address] [place], [address] M-Bob Not Observed Normal Not Observed [facility] Comment on above: Performed By: #### L 3100.8410, L4500.5000, L3410.2000, L3100.2300, L4500.2000, L3100.7325, L3100.7275, L3300.0450, L3100.3425 ####[facility] [address] [place], [address] NOTE: Comment Normal . [facility] Comment on above: Result Comment: Prot ein electrophoresis scan will follow via computer,mail, or casing operator delivery. Performed By: #### L 3100.8410, L4500.5000, L3410.2000, L3100.2300, L4500.2000, L3100.7325, L3100.7275, L3300.0450, L3100.3425 ####[facility] [address] [place], [address] Protein [Mass/Vol] 6.1 g/dL Normal 6.0-8.5 [facility] Comment on above: Performed By: #### L 3100.8410, L4500.5000, L3410.2000, L3100.2300, L4500.2000, L3100.7325, L3100.7275, L3300.0450, L3100.3425 ####[facility] [address] [place], [address] Protein C, Functionalon 06-23 PROTEIN C,FUNC 89 Normal 73-180 [facility] Comment on above: Performed By: #### L 3100.8410, L4500.5000, L3410.2000, L3100.2300, L4500.2000, L3100.7325, L3100.7275, L3300.0450, L3100.3425 ####[facility] [address] [place], [address] 36on 07-11-2024 36 Name of caller: Ashtyn Contact phone number: [phone] Relationship to Patient: [facility] Provider: Dr. Lopez Practice: [facility] Chief Complaint/Reason for Call: Ashtyn from [facility] called in regards to a message they received from the office and they are not sure what this was in regards to. Ashtyn is requesting a call back and they can be reached at #[phone]. Please advise. Best time of day caller can be reached: Any Patient advised that office/PCP has 24-48 business hours to return their call: No Normal [facility] XR Abdomen Single viewon 1. Nonobstructive bowel gas pattern, and findings suggestive of constipation. 2. Possible cholelithiasis. Report Dictated on Electronically Signed By: Laurent Kaba MD Electronically Signed Date/Time: 07/11/2024 7:14 PM EDT [facility] Patient Name: MANSI CARO : 1955 [...] diffuse degenerative change in the lumbar spine. [facility] Laurent Kaba MD - 07/11/2024 Patient [...] Electronically Signed Date/Time: 07/11/2024 7:14 PM EDT [facility] XR Abdomen Single viewOrdere d By: Laurent Kaba on 07-11-2024 [facility] Work Phone: XR Abdomen Single viewon Radiology Study observation (narrative) [facility] ANCAon 07-07-2024 Atypical pANCA <1:20 Normal Neg:<1:20 [facility] Comment on above: Order Comment: [id number] Result Comment: The atypical pANCA pattern has been observed in asignificant percentage of patients with ulcerative colitis,primary sclerosing cholangitis and autoimmune hepatitis.Performed at: - [facility] [id number] Director: Bulmaro Nesbitt PhD, Phone: [phone] at: [facility] [id number] Director: Stanton Vargas MD, Phone: [phone] Performed By: #### L 2100.0000, L801.1541, L300.3900, L3100.5440, L3100.3425, L3410.2400, L3300.1200, L500.4050 ####[facility] [address] [place], [place], [phone] Cytoplasmic Ab <1:20 Normal Neg:<1:20 [facility] Comment on above: Order Comment: [id number] Performed By: #### L 2100.0000, L801.1541, L300.3900, L3100.5440, L3100.3425, L3410.2400, L3300.1200, L500.4050 ####[facility] [address] [facility] [address] [place], [address] Perinuclear Ab. <1:20 Normal Neg:<1:20 [facility] Comment on above: Order Comment: [id number] Result Comment: The presence of positive fluorescence exhibiting P-ANCA orC-ANCA patterns alone is not specific for the diagnosis ofWegener's Granulomatosis (WG) or microscopic polyangiitis.Decisions about treatment should not be based solely onANCA IFA results. The International ANCA Group Consensusrecommends follow up testing of positive sera with both NE-3 and MPO-ANCA enzyme immunoassays. As many as 5% serumsamples are positive only by EIA. Ref. AM J Clin Yjaanw8749;111:507-513. Performed By: #### L 2100.0000, L801.1541, L300.3900, L3100.5440, L3100.3425, L3410.2400, L3300.1200, L500.4050 ####[facility] [address] [place], [place], [address] Celiac Disease Profileon ENDOMYSIAL IGA Negative Normal Negative [facility] Comment on above: Order Comment: [id number] Performed By: #### L 2100.0000, L801.1541, L300.3900, L3100.5440, L3100.3425, L3410.2400, L3300.1200, L500.4050 ####[facility] [address] [place], [address] tTG IGA <2 Normal 0-3 [facility] Comment on above: Order Comment: [id number] Result Comment: Nega tive 0 - 3 Weak Positive 4 - 10 Positive >10 Tissue Transglutaminase (tTG) has been identified as the endomysial antigen. Studies have demonstr- ated that endomysial IgA antibodies have over 99% specificity for gluten sensitive enteropathy. Performed By: #### L 2100.0000, L801.1541, L300.3900, L3100.5440, L3100.3425, L3410.2400, L3300.1200, L500.4050 ####[facility] [address] [place], [place], [address] DARIANA + Protein Elect, Serumon 07-07-2024 Albumin [Mass/Vol] 3.2 g/dL Normal 2.9-4.4 [facility] Comment on above: Order Comment: [id number] Performed By: #### L 2100.0000, L801.1541, L300.3900, L3100.5440, L3100.3425, L3410.2400, L3300.1200, L500.4050 ####[facility] [address] [place], [address] Albumin/Globulin [Mass ratio] 1.1 {ratio} Normal 0.7-1.7 [facility] Comment on above: Order Comment: [id number] 68 Performed By: #### L 2100.0000, L801.1541, L300.3900, L3100.5440, L3100.3425, L3410.2400, L3300.1200, L500.4050 ####[facility] [address] [place], [address] ZXUXA-1-UTON 0.4 g/dL Normal 0.0-0.4 [facility] Comment on above: Order Comment: [id number] 68 Performed By: #### L 2100.0000, L801.1541, L300.3900, L3100.5440, L3100.3425, L3410.2400, L3300.1200, L500.4050 ####[facility] [address] [place], [address] AOMFT-8-LLNF 1.0 g/dL Normal 0.4-1.0 [facility] Comment on above: Order Comment: [id number] 68 Performed By: #### L 2100.0000, L801.1541, L300.3900, L3100.5440, L3100.3425, L3410.2400, L3300.1200, L500.4050 ####[facility] [address] [place], [address] BETA GLOBULIN 0.8 g/dL Normal 0.7-1.3 [facility] Comment on above: Order Comment: [id number] 68 Performed By: #### L 2100.0000, L801.1541, L300.3900, L3100.5440, L3100.3425, L3410.2400, L3300.1200, L500.4050 ####[facility] [address] [place], [address] GAMMA GLOBULIN 1.1 g/dL Normal 0.4-1.8 [facility] Comment on above: Order Comment: [id number] 68 Performed By: #### L 2100.0000, L801.1541, L300.3900, L3100.5440, L3100.3425, L3410.2400, L3300.1200, L500.4050 ####[facility] [address] [place], [address] Globulin (S) [Mass/Vol] 3.2 g/dL Normal 2.2-3.9 [facility] Comment on above: Order Comment: [id number] 68 Performed By: #### L 2100.0000, L801.1541, L300.3900, L3100.5440, L3100.3425, L3410.2400, L3300.1200, L500.4050 ####[facility] [address] [place], [place], [phone]) DARIANA RESULT,S Comment Normal . [facility] Comment on above: Order Comment: [id number] Result Comment: No m onoclonality detected. Performed By: #### L 2100.0000, L801.1541, L300.3900, L3100.5440, L3100.3425, L3410.2400, L3300.1200, L500.4050 ####[facility] [address] [place], [address] IMMUNOGLOB A QN 204 mg/dL Normal 64-422 [facility] Comment on above: Order Comment: [id number] 68 Performed By: #### L 2100.0000, L801.1541, L300.3900, L3100.5440, L3100.3425, L3410.2400, L3300.1200, L500.4050 ####[facility] [address] [place], [address] IMMUNOGLOB G QN 1094 mg/dL Normal 586-1602 [facility] Comment on above: Order Comment: [id number] 68 Performed By: #### L 2100.0000, L801.1541, L300.3900, L3100.5440, L3100.3425, L3410.2400, L3300.1200, L500.4050 ####[facility] [address] [place], [address] IMMUNOGLOB M QN 53 mg/dL Normal 26-217 [facility] Comment on above: Order Comment: [id number] 68 Performed By: #### L 2100.0000, L801.1541, L300.3900, L3100.5440, L3100.3425, L3410.2400, L3300.1200, L500.4050 ####[facility] [address] [place], [address] M-Bob Not Observed Normal Not Observed [facility] Comment on above: Order Comment: [id number] Performed By: #### L 2100.0000, L801.1541, L300.3900, L3100.5440, L3100.3425, L3410.2400, L3300.1200, L500.4050 ####[facility] [facility] [address] [place], [place], [phone] NOTE: Comment Normal . [facility] Comment on above: Order Comment: [id number] Result Comment: Prot ein electrophoresis scan will follow via computer,mail, or casing operator delivery. Performed By: #### L 2100.0000, L801.1541, L300.3900, L3100.5440, L3100.3425, L3410.2400, L3300.1200, L500.4050 ####[facility] [address] [place], [address] Protein [Mass/Vol] 6.4 g/dL Normal 6.0-8.5 [facility] Comment on above: Order Comment: [id number] Performed By: #### L 2100.0000, L801.1541, L300.3900, L3100.5440, L3100.3425, L3410.2400, L3300.1200, L500.4050 ####[facility] [address] [place], [address] L2100.0000on 07-07-2024 ACCA 18 units Normal 0-90 [facility] Comment on above: Order Comment: [id number] Result Comment: Nega tive: <80 Equivocal: 80-90 Positive: >90 Performed By: #### L 2100.0000, L801.1541, L300.3900, L3100.5440, L3100.3425, L3410.2400, L3300.1200, L500.4050 ####[facility] [address] [place], [address] ALCA 7 units Normal 0-60 [facility] Comment on above: Order Comment: [id number] Result Comment: Nega tive:<55 Equivocal: 55-60 Positive: >60 Performed By: #### L 2100.0000, L801.1541, L300.3900, L3100.5440, L3100.3425, L3410.2400, L3300.1200, L500.4050 ####[facility] [address] [place], [address] AMCA 34 units Normal 0-100 [facility] Comment on above: Order Comment: [id number] Result Comment: Nega tive: <90 Equivocal: 90-100 Positive: >100 This test was developed and its performance characteristics determined by [employer]. It has not been cleared or approved by the Food and Drug Administration. The FDA has determined that such clearance or approval is not necessary. Performed By: #### L 2100.0000, L801.1541, L300.3900, L3100.5440, L3100.3425, L3410.2400, L3300.1200, L500.4050 ####[facility] [address] [place], [address] Atypical pANCA Negative Normal Negative [facility] Comment on above: Order Comment: [id number] Performed By: #### L 2100.0000, L801.1541, L300.3900, L3100.5440, L3100.3425, L3410.2400, L3300.1200, L500.4050 ####[facility] [address] [place], [address] COMMENT Comment Normal . [facility] Comment on above: Order Comment: [id number] Result Comment: Jennifer riya is not suggestive of Inflammatory Bowel Disease Performed By: #### L 2100.0000, L801.1541, L300.3900, L3100.5440, L3100.3425, L3410.2400, L3300.1200, L500.4050 ####[facility] [address] [place], [address] Edson 28 units Normal 0-50 [facility] Comment on above: Order Comment: [id number] Result Comment: Nega tive: <45 Equivocal: 45-50 Positive: >50 Performed By: #### L 2100.0000, L801.1541, L300.3900, L3100.5440, L3100.3425, L3410.2400, L3300.1200, L500.4050 ####[facility] [address] [place], [address] Lupus Anticoagulant Compon 0 - aPTT Coag (Bld) [Time] 46.4 s High 0.0-43.5 [facility] Comment on above: Performed By: #### L 504.2610, L4500.0100 ####[facility] [address] [place], [address] aPTT Coag (Bld) [Time] 42.3 s High 0.0-40.5 [facility] Comment on above: Performed By: #### L 504.2610, L4500.0100 ####[facility] [address] [place], [address] DILUTE PT (dPT) 35.7 sec Normal 0.0-47.6 [facility] Comment on above: Performed By: #### L 504.2610, L4500.0100 ####[facility] [address] [place], [address] dPT Conf. Ratio 1.05 Ratio Normal 0.00-1.34 [facility] Comment on above: Performed By: #### L 504.2610, L4500.0100 ####[facility] [address] [place], [address] DRVVT 37.8 sec Normal 0.0-47.0 [facility] Comment on above: Performed By: #### L 504.2610, L4500.0100 ####[facility] [address] [place], [address] HEX PHAS PHOSPH 4 sec Normal 0-11 [facility] Comment on above: Performed By: #### L 504.2610, L4500.0100 ####[facility] [address] [place], [address] Interpretation Comment: Normal . [facility] Comment on above: Result Comment: No l [...] performed in the absence ofanticoagulant therapy.Performed at: [address] [id number] Director: Stanton Vargas MD, Phone: [phone] Performed By: #### L 504.2610, L4500.0100 ####[facility] [address] [place], [place], [id number] THROMBIN TIME 17.3 sec Normal 0.0-23.0 [facility] Comment on above: Performed By: #### L 504.2610, L4500.0100 ####[facility] [address] [place], [place], [address] AZALEA Comprehensive Panelon AZALEA TABLE Comment Normal . [facility] Comment on above: Result Comment: Auto antibody Disease Association -------- Condition Frequency ---------Antinuclear Antibody, SLE, mixed connectiveDirect (AZALEA-D) tissue diseases ---------dsDNA SLE 40 - 60% ---------Chromatin Drug induced SLE 90% SLE 48 - 97% ---------SSA (Ro) SLE 25 - 35% Sjogren's Syndrome 40 - 70% Lupus 100% ---------SSB (La) SLE 10% Sjogren's Syndrome 30% ---------Sm (anti-Castillo) SLE 15 - 30% ---------SECTION GANG Mixed Connective Tissue Disease 95%(U1 nRNP, SLE 30 - 50%anti-ribonucleoprotein) Polymyositis and/or Dermatomyositis 20% ---------Scl-70 (antiDNA Scleroderma (diffuse) 20 - 35%topoisomerase) Crest 13% ---------Mary-1 Polymyositis and/or Dermatomyositis 20 - 40% ---------Centromere B Scleroderma - Crest variant 80%Performed at: [address] [id number] Director: Bulmaro Nesbitt PhD, Phone: [phone] Performed By: #### L 2100.0000, L801.1541, L300.3900, L3100.5440, L3100.3425, L3410.2400, L3300.1200, L500.4050 ####[facility] [address] [place], [address] ANTI-CENT B AB <0.2 Normal 0.0-0.9 [facility] Comment on above: Performed By: #### L 2100.0000, L801.1541, L300.3900, L3100.5440, L3100.3425, L3410.2400, L3300.1200, L500.4050 ####[facility] [address] [place], [address] ANTI-DNA (DS)AB 27 IU/mL Abnormal 0-9 [facility] Comment on above: Result Comment: Nega tive <5 Equivocal 5 - 9 Positive >9 Performed By: #### L 2100.0000, L801.1541, L300.3900, L3100.5440, L3100.3425, L3410.2400, L3300.1200, L500.4050 ####[facility] [address] [place], [address] ANTI-MARY-1 <0.2 Normal 0.0-0.9 [facility] Comment on above: Performed By: #### L 2100.0000, L801.1541, L300.3900, L3100.5440, L3100.3425, L3410.2400, L3300.1200, L500.4050 ####[facility] [address] [place], [address] ANTI-SS-A < 0.2 Normal 0.0-0.9 [facility] Comment on above: Performed By: #### L 2100.0000, L801.1541, L300.3900, L3100.5440, L3100.3425, L3410.2400, L3300.1200, L500.4050 ####[facility] [address] [place], [address] ANTI-SS-B < 0.2 Normal 0.0-0.9 [facility] Comment on above: Performed By: #### L 2100.0000, L801.1541, L300.3900, L3100.5440, L3100.3425, L3410.2400, L3300.1200, L500.4050 ####[facility] [address] [place], [address] ANTICHROMATIN <0.2 Normal 0.0-0.9 [facility] Comment on above: Performed By: #### L 2100.0000, L801.1541, L300.3900, L3100.5440, L3100.3425, L3410.2400, L3300.1200, L500.4050 ####[facility] [address] [place], [address] ANTISCLERODERM <0.2 Normal 0.0-0.9 [facility] Comment on above: Performed By: #### L 2100.0000, L801.1541, L300.3900, L3100.5440, L3100.3425, L3410.2400, L3300.1200, L500.4050 ####[facility] [address] [place], [address] SECTION GANG Ab 0.2 AI Normal 0.0-0.9 [facility] Comment on above: Performed By: #### L 2100.0000, L801.1541, L300.3900, L3100.5440, L3100.3425, L3410.2400, L3300.1200, L500.4050 ####[facility] [address] [place], [address] CASTILLO Ab <0.2 Normal 0.0-0.9 [facility] Comment on above: Performed By: #### L 2100.0000, L801.1541, L300.3900, L3100.5440, L3100.3425, L3410.2400, L3300.1200, L500.4050 ####[facility] [address] [place], [address] Basic Metabolic Profile (BMP )on 07-05-2024 BUN/CRE 8.8 RATIO Low 10-20 [facility] Comment on above: Performed By: #### L 100.0500, L500.2500 ####[facility] [address] [place], [address] CA,Total 8.8 mg/dL Normal 8.5-10.1 [facility] Comment on above: Performed By: #### L 100.0500, L500.2500 ####[facility] [address] [place], [address] Chloride [Moles/Vol] 112 mmol/L High 98-107 [facility] Comment on above: Performed By: #### L 100.0500, L500.2500 ####[facility] [address] [place], [address] CO2 [Moles/Vol] 26.0 mmol/L Normal 21.0-32.0 [facility] Comment on above: Performed By: #### L 100.0500, L500.2500 ####[facility] [address] [place], [address] Creatinine [Mass/Vol] 0.79 mg/dL Normal 0.55-1.02 [facility] Comment on above: Result Comment: The validity of the calculated GFR GFRAA in patients over70 years has not been determined. Clinical correlation isessential. Performed By: #### L 100.0500, L500.2500 ####[facility] [address] [place], [address] ECRCL 64.05 ml/min Normal [facility] Comment on above: Performed By: #### L 100.0500, L500.2500 ####[facility] [address] [place], [address] EST GFR - AA 92 mL/min Normal >60 [facility] Comment on above: Result Comment: Afri can Dominican GFR Calc Performed By: #### L 100.0500, L500.2500 ####[facility] [address] [place], [address] GAP 6 Normal 5-15 [facility] Comment on above: Performed By: #### L 100.0500, L500.2500 ####[facility] [address] [place], [address] GFR/1.73 sq M.predicted among non-blacks MDRD (S/P/Bld) [Vol rate/Area] 76 mL/min/{1.73_m2} Normal >60 [facility] Comment on above: Result Comment: Non- GFR Calc Performed By: #### L 100.0500, L500.2500 ####[facility] [address] [place], [address] Glucose [Mass/Vol] 100 mg/dL Normal 74-106 [facility] Comment on above: Result Comment: Fast ing Glucose result from 100 to 125 mg/dLsuggests IMPAIRED HOMEOSTASIS per A.D.A. criteria. Performed By: #### L 100.0500, L500.2500 ####[facility] [address] [place], [address] Potassium [Moles/Vol] 3.8 mmol/L Normal 3.5-5.1 [facility] Comment on above: Performed By: #### L 100.0500, L500.2500 ####[facility] [address] [place], [address] Sodium [Moles/Vol] 144 mmol/L Normal 136-145 [facility] Comment on above: Performed By: #### L 100.0500, L500.2500 ####[facility] [address] [place], [address] Urea nitrogen [Mass/Vol] 7 mg/dL Normal 7-18 [facility] Comment on above: Performed By: #### L 100.0500, L500.2500 ####[facility] [address] [place], [address] Bedside Glucoseon 07-05-2024 FINGERSTICK GLU 155 mg/dL High 74-106 [facility] Comment on above: Result Comment: TORRES GEMENT OF PATIENT CARE PER NURSING PROTOCOL Performed By: #### L 501.080 ####[facility] [address] [place], [address] FINGERSTICK GLU 92 mg/dL Normal 74-106 [facility] Comment on above: Result Comment: TORRES GEMENT OF PATIENT CARE PER NURSING PROTOCOL Performed By: #### L 501.080 ####[facility] [address] [place], [address] CBC-Complete Blood Cnt No Di ffon 07-05-2024 Erythrocyte distribution width (RBC) [Ratio] 13.2 % Normal 11.6-14.6 [facility] Comment on above: Performed By: #### L 100.0500, L500.2500 ####[facility] [address] [place], [address] Hematocrit (Bld) [Volume fraction] 29.1 % Low 37-47 [facility] Comment on above: Performed By: #### L 100.0500, L500.2500 ####[facility] [address] [place], [address] Hemoglobin (Bld) [Mass/Vol] 9.4 g/dL Low 12.0-15.0 [facility] Comment on above: Performed By: #### L 100.0500, L500.2500 ####[facility] [address] [place], [address] MCH (RBC) [Entitic mass] 29.6 pg Normal 27.0-32.0 [facility] Comment on above: Performed By: #### L 100.0500, L500.2500 ####[facility] [address] [place], [address] MCHC (RBC) [Mass/Vol] 32.3 g/dL Normal 32-36 [facility] Comment on above: Performed By: #### L 100.0500, L500.2500 ####[facility] [address] [place], [address] MCV (RBC) [Entitic vol] 91.5 fL Normal 81-99 [facility] Comment on above: Performed By: #### L 100.0500, L500.2500 ####[facility] [address] [place], [address] Platelet mean volume (Bld) [Entitic vol] 10.2 fL Normal 6.2-12.0 [facility] Comment on above: Performed By: #### L 100.0500, L500.2500 ####[facility] [address] [place], [address] Platelets (Bld) [#/Vol] 205 10*3/uL Normal 150-450 [facility] Comment on above: Performed By: #### L 100.0500, L500.2500 ####[facility] [address] [place], [address] RBC (Bld) [#/Vol] 3.18 10*6/uL Low 4.2-5.4 [facility] Comment on above: Performed By: #### L 100.0500, L500.2500 ####[facility] [address] [place], [address] RDW SD 44.7 fl High 35.1-43.9 [facility] Comment on above: Performed By: #### L 100.0500, L500.2500 ####[facility] [address] [place], [address] WBC (Bld) [#/Vol] 4.8 10*3/uL Normal 4.4-11.0 [facility] Comment on above: Performed By: #### L 100.0500, L500.2500 ####[facility] [address] [place], [address] CTA Abd/Pelvis W/WO Contrast on 07-05-2024 CTA Abd/Pelvis W/WO Contrast Normal [facility] Colonoscopy Reporton 024 Colonoscopy Report Normal [facility] Discharge Instructionon 06-22 Discharge Instruction Normal [facility] MR/QXYBROQW3ie 07-05-2024 MR/POSTOPAN2 Normal [facility] Bedside Glucoseon 07-04-2024 FINGERSTICK GLU 147 mg/dL High 74-106 [facility] Comment on above: Result Comment: TORRES GEMENT OF PATIENT CARE PER NURSING PROTOCOL Performed By: #### L 501.080 ####[facility] [address] [place], [address] FINGERSTICK GLU 66 mg/dL Low 74-106 [facility] Comment on above: Result Comment: TORRES GEMENT OF PATIENT CARE PER NURSING PROTOCOL Performed By: #### L 501.080 ####[facility] [address] [place], [address] FINGERSTICK GLU 82 mg/dL Normal 74-106 [facility] Comment on above: Result Comment: TORRES GEMENT OF PATIENT CARE PER NURSING PROTOCOL Performed By: #### L 501.080 ####[facility] [address] [place], [address] FINGERSTICK GLU 98 mg/dL Normal 74-106 [facility] Comment on above: Result Comment: TORRES GEMENT OF PATIENT CARE PER NURSING PROTOCOL Performed By: #### L 501.080 ####[facility] [address] [place], [address] FINGERSTICK GLU 83 mg/dL Normal 74-106 [facility] Comment on above: Result Comment: TORRES GEMENT OF PATIENT CARE PER NURSING PROTOCOL Performed By: #### L 501.080 ####[facility] [address] [place], [address] FINGERSTICK GLU 76 mg/dL Normal 74-106 [facility] Comment on above: Result Comment: TORRES GEMENT OF PATIENT CARE PER NURSING PROTOCOL Performed By: #### L 501.080 ####[facility] [address] [place], [address] CBC W/Diff, Automatedon 06-22 Absolute Lymph 2.01 X10 3/uL Normal 0.83-4.51 [facility] Comment on above: Performed By: #### L 500.4050, L501.2300, L100.0100, L501.5200 ####[facility] [address] [place], [address] Absolute Neut 1.8 X10 3/uL Low 2.0-7.7 [facility] Comment on above: Performed By: #### L 500.4050, L501.2300, L100.0100, L501.5200 ####[facility] [address] [place], [address] Basophils/100 WBC (Bld) 0.7 % Normal 0-1 [facility] Comment on above: Performed By: #### L 500.4050, L501.2300, L100.0100, L501.5200 ####[facility] [address] [place], [address] Eosinophils/100 WBC (Bld) 3.8 % Normal 0-5 [facility] Comment on above: Performed By: #### L 500.4050, L501.2300, L100.0100, L501.5200 ####[facility] [address] [place], [address] Erythrocyte distribution width (RBC) [Ratio] 13.4 % Normal 11.6-14.6 [facility] Comment on above: Performed By: #### L 500.4050, L501.2300, L100.0100, L501.5200 ####[facility] [address] [place], [address] Hematocrit (Bld) [Volume fraction] 29.7 % Low 37-47 [facility] Comment on above: Performed By: #### L 500.4050, L501.2300, L100.0100, L501.5200 ####[facility] [address] [place], [address] Hemoglobin (Bld) [Mass/Vol] 9.5 g/dL Low 12.0-15.0 [facility] Comment on above: Performed By: #### L 500.4050, L501.2300, L100.0100, L501.5200 ####[facility] [address] [place], [address] IG% 0.700 Normal 0.0-0.9 [facility] Comment on above: Result Comment: IG% - Immature Granulocytes (promyelocytes, myelocytes andmetamyelocytes) > 1% indicates that a LEFT SHIFT is Present. Performed By: #### L 500.4050, L501.2300, L100.0100, L501.5200 ####[facility] [address] [place], [address] Lymphocytes/100 WBC (Bld) 45.3 % High 19-41 [facility] Comment on above: Performed By: #### L 500.4050, L501.2300, L100.0100, L501.5200 ####[facility] [address] [place], [address] MCH (RBC) [Entitic mass] 30.0 pg Normal 27.0-32.0 [facility] Comment on above: Performed By: #### L 500.4050, L501.2300, L100.0100, L501.5200 ####[facility] [address] [place], [address] MCHC (RBC) [Mass/Vol] 32.0 g/dL Normal 32-36 [facility] Comment on above: Performed By: #### L 500.4050, L501.2300, L100.0100, L501.5200 ####[facility] [address] [place], [address] MCV (RBC) [Entitic vol] 93.7 fL Normal 81-99 [facility] Comment on above: Performed By: #### L 500.4050, L501.2300, L100.0100, L501.5200 ####[facility] [address] [place], [address] Monocytes/100 WBC (Bld) 8.3 % Normal 0-10 [facility] Comment on above: Performed By: #### L 500.4050, L501.2300, L100.0100, L501.5200 ####[facility] [address] [place], [address] Neutrophils/100 WBC (Bld) 41.2 % Low 47-70 [facility] Comment on above: Performed By: #### L 500.4050, L501.2300, L100.0100, L501.5200 ####[facility] [address] [place], [address] Nucleated RBC (Bld) [#/Vol] 0 10*3/uL Normal 0-5 [facility] Comment on above: Performed By: #### L 500.4050, L501.2300, L100.0100, L501.5200 ####[facility] [address] [place], [address] Platelet mean volume (Bld) [Entitic vol] 9.7 fL Normal 6.2-12.0 [facility] Comment on above: Performed By: #### L 500.4050, L501.2300, L100.0100, L501.5200 ####[facility] [address] [place], [address] Platelets (Bld) [#/Vol] 181 10*3/uL Normal 150-450 [facility] Comment on above: Performed By: #### L 500.4050, L501.2300, L100.0100, L501.5200 ####[facility] [address] [place], [address] RBC (Bld) [#/Vol] 3.17 10*6/uL Low 4.2-5.4 [facility] Comment on above: Performed By: #### L 500.4050, L501.2300, L100.0100, L501.5200 ####[facility] [address] [place], [address] RDW SD 46.1 fl High 35.1-43.9 [facility] Comment on above: Performed By: #### L 500.4050, L501.2300, L100.0100, L501.5200 ####[facility] [address] [place], [address] WBC (Bld) [#/Vol] 4.4 10*3/uL Normal 4.4-11.0 [facility] Comment on above: Performed By: #### L 500.4050, L501.2300, L100.0100, L501.5200 ####[facility] [address] [place], [address] CD3 (initial)on 07-04-2024 CD3 (initial) Normal [facility] Comment on above: Performed By: #### P CD3 ####[facility] [address] [place], [address] Comprehensive Metabolic Prof ilon 07-04-2024 Albumin [Mass/Vol] 2.5 g/dL Low 3.2-5.0 [facility] Comment on above: Performed By: #### L 500.4050, L501.2300, L100.0100, L501.5200 ####[facility] [address] [place], [address] Albumin/Globulin [Mass ratio] 0.7 {ratio} Low 0.9-2.4 [facility] Comment on above: Performed By: #### L 500.4050, L501.2300, L100.0100, L501.5200 ####[facility] [address] [place], [address] ALK P 37 U/L Low 45-117 [facility] Comment on above: Performed By: #### L 500.4050, L501.2300, L100.0100, L501.5200 ####[facility] [address] [place], [address] ALT [Catalytic activity/Vol] 23 U/L Normal 13-56 [facility] Comment on above: Performed By: #### L 500.4050, L501.2300, L100.0100, L501.5200 ####[facility] [address] [place], [address] AST [Catalytic activity/Vol] 26 U/L Normal 15-37 [facility] Comment on above: Performed By: #### L 500.4050, L501.2300, L100.0100, L501.5200 ####[facility] [address] [place], [address] Bilirubin [Mass/Vol] 0.20 mg/dL Normal 0.20-1.00 [facility] Comment on above: Result Comment: For patients on eltrombopag therapy, use of Dimension Olmito TBIL is not recommended. Performed By: #### L 500.4050, L501.2300, L100.0100, L501.5200 ####[facility] [address] [place], [address] BUN/CRE 11.0 RATIO Normal 10-20 [facility] Comment on above: Performed By: #### L 500.4050, L501.2300, L100.0100, L501.5200 ####[facility] [address] [place], [address] CA,Total 8.4 mg/dL Low 8.5-10.1 [facility] Comment on above: Performed By: #### L 500.4050, L501.2300, L100.0100, L501.5200 ####[facility] [address] [place], [address] Chloride [Moles/Vol] 112 mmol/L High 98-107 [facility] Comment on above: Performed By: #### L 500.4050, L501.2300, L100.0100, L501.5200 ####[facility] [address] [place], [address] CO2 [Moles/Vol] 25.0 mmol/L Normal 21.0-32.0 [facility] Comment on above: Performed By: #### L 500.4050, L501.2300, L100.0100, L501.5200 ####[facility] [address] [place], [address] Creatinine [Mass/Vol] 0.91 mg/dL Normal 0.55-1.02 [facility] Comment on above: Result Comment: The validity of the calculated GFR GFRAA in patients over70 years has not been determined. Clinical correlation isessential. Performed By: #### L 500.4050, L501.2300, L100.0100, L501.5200 ####[facility] [address] [place], [address] ECRCL 56.13 ml/min Normal [facility] Comment on above: Performed By: #### L 500.4050, L501.2300, L100.0100, L501.5200 ####[facility] [address] [place], [address] EST GFR - AA 78 mL/min Normal >60 [facility] Comment on above: Result Comment: Afri can Dominican GFR Calc Performed By: #### L 500.4050, L501.2300, L100.0100, L501.5200 ####[facility] [address] [place], [address] GAP 3 Low 5-15 [facility] Comment on above: Performed By: #### L 500.4050, L501.2300, L100.0100, L501.5200 ####[facility] [address] [place], [address] GFR/1.73 sq M.predicted among non-blacks MDRD (S/P/Bld) [Vol rate/Area] 65 mL/min/{1.73_m2} Normal >60 [facility] Comment on above: Result Comment: Non- GFR Calc Performed By: #### L 500.4050, L501.2300, L100.0100, L501.5200 ####[facility] [address] [place], [address] Globulin (S) [Mass/Vol] 3.4 g/dL Normal 2.2-4.2 [facility] Comment on above: Performed By: #### L 500.4050, L501.2300, L100.0100, L501.5200 ####[facility] [address] [place], [address] Glucose [Mass/Vol] 93 mg/dL Normal 74-106 [facility] Comment on above: Performed By: #### L 500.4050, L501.2300, L100.0100, L501.5200 ####[facility] [address] [place], [address] Potassium [Moles/Vol] 3.7 mmol/L Normal 3.5-5.1 [facility] Comment on above: Performed By: #### L 500.4050, L501.2300, L100.0100, L501.5200 ####[facility] [address] [place], [address] Sodium [Moles/Vol] 140 mmol/L Normal 136-145 [facility] Comment on above: Performed By: #### L 500.4050, L501.2300, L100.0100, L501.5200 ####[facility] [address] [place], [address] T PROT 5.9 g/dL Low 6.4-8.2 [facility] Comment on above: Performed By: #### L 500.4050, L501.2300, L100.0100, L501.5200 ####[facility] [address] [place], [address] Urea nitrogen [Mass/Vol] 10 mg/dL Normal 7-18 [facility] Comment on above: Performed By: #### L 500.4050, L501.2300, L100.0100, L501.5200 ####[facility] [address] [place], [address] HH, Hemoglobin AND Hematocri ton 07-04-2024 Hematocrit (Bld) [Volume fraction] 30.3 % Low 37-47 [facility] Comment on above: Performed By: #### L 100.0600 ####[facility] [address] [place], [address] Hemoglobin (Bld) [Mass/Vol] 9.7 g/dL Low 12.0-15.0 [facility] Comment on above: Performed By: #### L 100.0600 ####[facility] [address] [place], [address] HCT Normal 37-47 [facility] Comment on above: Result Comment: OVER LAPPING- CBCD ORDERED FOR MORNING RUN Performed By: #### L 100.0600 ####[facility] [address] [place], [address] HGB Normal 12.0-15.0 [facility] Comment on above: Result Comment: OVER LAPPING- CBCD ORDERED FOR MORNING RUN Performed By: #### L 100.0600 ####[facility] [address] [place], [address] Hematocrit (Bld) [Volume fraction] 30.4 % Low 37-47 [facility] Comment on above: Performed By: #### L 100.0600 ####[facility] [address] [place], [address] Hemoglobin (Bld) [Mass/Vol] 9.6 g/dL Low 12.0-15.0 [facility] Comment on above: Performed By: #### L 100.0600 ####[facility] [address] [place], [address] LDHon 07-04-2024 LDH 232 U/L Normal 84-246 [facility] Comment on above: Performed By: #### L 504.2610, L4500.0100 ####[facility] [address] [place], [address] Lactic Acidon 07-04-2024 Lactate [Moles/Vol] 0.6 mmol/L Normal 0.4-1.9 [facility] Comment on above: Order Comment: Y Performed By: #### L 503.6005 ####[facility] [address] [place], [address] MR/CON.PCM.GIon 07-04-2024 MR/CON.PCM.GI Normal [facility] MR/POSTOP.ANEon 07-04-2024 MR/POSTOP.ANE Normal [facility] Magnesiumon 07-04-2024 Magnesium [Mass/Vol] 1.9 mg/dL Normal 1.6-2.6 [facility] Comment on above: Performed By: #### L 500.4050, L501.2300, L100.0100, L501.5200 ####[facility] [address] [place], [address] Phosphoruson 07-04-2024 Phosphate [Mass/Vol] 3.4 mg/dL Normal 2.5-4.9 [facility] Comment on above: Performed By: #### L 500.4050, L501.2300, L100.0100, L501.5200 ####[facility] [address] [place], [address] Surgery Specimen Level Macrina 07-04-2024 Surgery Specimen Level IV Normal [facility] Comment on above: Performed By: #### P SUIV ####[facility] [address] [place], [address] Acute Abdomen Inc Cheston Acute Abdomen Inc Chest Normal [facility] CBC W/Diff, Automatedon 06-22 Absolute Lymph 1.44 X10 3/uL Normal 0.83-4.51 [facility] Comment on above: Performed By: #### L 300.4310, L504.2610, L501.6710, L500.4050, L101.9900, L100.0100, L300.3900 ####[facility] [address] [place], [address] Absolute Neut 3.1 X10 3/uL Normal 2.0-7.7 [facility] Comment on above: Performed By: #### L 300.4310, L504.2610, L501.6710, L500.4050, L101.9900, L100.0100, L300.3900 ####[facility] [address] [place], [address] Basophils/100 WBC (Bld) 0.4 % Normal 0-1 [facility] Comment on above: Performed By: #### L 300.4310, L504.2610, L501.6710, L500.4050, L101.9900, L100.0100, L300.3900 ####[facility] [address] [place], [address] Eosinophils/100 WBC (Bld) 1.8 % Normal 0-5 [facility] Comment on above: Performed By: #### L 300.4310, L504.2610, L501.6710, L500.4050, L101.9900, L100.0100, L300.3900 ####[facility] [address] [place], [address] Erythrocyte distribution width (RBC) [Ratio] 13.4 % Normal 11.6-14.6 [facility] Comment on above: Performed By: #### L 300.4310, L504.2610, L501.6710, L500.4050, L101.9900, L100.0100, L300.3900 ####[facility] [address] [place], [address] Hematocrit (Bld) [Volume fraction] 33.4 % Low 37-47 [facility] Comment on above: Performed By: #### L 300.4310, L504.2610, L501.6710, L500.4050, L101.9900, L100.0100, L300.3900 ####[facility] [address] [place], [address] Hemoglobin (Bld) [Mass/Vol] 10.9 g/dL Low 12.0-15.0 [facility] Comment on above: Performed By: #### L 300.4310, L504.2610, L501.6710, L500.4050, L101.9900, L100.0100, L300.3900 ####[facility] [address] [place], [address] IG% 0.600 Normal 0.0-0.9 [facility] Comment on above: Result Comment: IG% - Immature Granulocytes (promyelocytes, myelocytes andmetamyelocytes) > 1% indicates that a LEFT SHIFT is Present. Performed By: #### L 300.4310, L504.2610, L501.6710, L500.4050, L101.9900, L100.0100, L300.3900 ####[facility] [address] [place], [address] Lymphocytes/100 WBC (Bld) 28.6 % Normal 19-41 [facility] Comment on above: Performed By: #### L 300.4310, L504.2610, L501.6710, L500.4050, L101.9900, L100.0100, L300.3900 ####[facility] [address] [place], [address] MCH (RBC) [Entitic mass] 30.1 pg Normal 27.0-32.0 [facility] Comment on above: Performed By: #### L 300.4310, L504.2610, L501.6710, L500.4050, L101.9900, L100.0100, L300.3900 ####[facility] [address] [place], [address] MCHC (RBC) [Mass/Vol] 32.6 g/dL Normal 32-36 [facility] Comment on above: Performed By: #### L 300.4310, L504.2610, L501.6710, L500.4050, L101.9900, L100.0100, L300.3900 ####[facility] [address] [place], [address] MCV (RBC) [Entitic vol] 92.3 fL Normal 81-99 [facility] Comment on above: Performed By: #### L 300.4310, L504.2610, L501.6710, L500.4050, L101.9900, L100.0100, L300.3900 ####[facility] [address] [place], [address] Monocytes/100 WBC (Bld) 6.7 % Normal 0-10 [facility] Comment on above: Performed By: #### L 300.4310, L504.2610, L501.6710, L500.4050, L101.9900, L100.0100, L300.3900 ####[facility] [address] [place], [address] Neutrophils/100 WBC (Bld) 61.9 % Normal 47-70 [facility] Comment on above: Performed By: #### L 300.4310, L504.2610, L501.6710, L500.4050, L101.9900, L100.0100, L300.3900 ####[facility] [address] [place], [address] Nucleated RBC (Bld) [#/Vol] 0 10*3/uL Normal 0-5 [facility] Comment on above: Performed By: #### L 300.4310, L504.2610, L501.6710, L500.4050, L101.9900, L100.0100, L300.3900 ####[facility] [address] [place], [address] Platelet mean volume (Bld) [Entitic vol] 10.8 fL Normal 6.2-12.0 [facility] Comment on above: Performed By: #### L 300.4310, L504.2610, L501.6710, L500.4050, L101.9900, L100.0100, L300.3900 ####[facility] [address] [place], [address] Platelets (Bld) [#/Vol] 191 10*3/uL Normal 150-450 [facility] Comment on above: Performed By: #### L 300.4310, L504.2610, L501.6710, L500.4050, L101.9900, L100.0100, L300.3900 ####[facility] [address] [place], [address] RBC (Bld) [#/Vol] 3.62 10*6/uL Low 4.2-5.4 [facility] Comment on above: Performed By: #### L 300.4310, L504.2610, L501.6710, L500.4050, L101.9900, L100.0100, L300.3900 ####[facility] [address] [place], [address] RDW SD 45.6 fl High 35.1-43.9 [facility] Comment on above: Performed By: #### L 300.4310, L504.2610, L501.6710, L500.4050, L101.9900, L100.0100, L300.3900 ####[facility] [address] [place], [address] WBC (Bld) [#/Vol] 5.0 10*3/uL Normal 4.4-11.0 [facility] Comment on above: Performed By: #### L 300.4310, L504.2610, L501.6710, L500.4050, L101.9900, L100.0100, L300.3900 ####[facility] [address] [place], [address] CRPon 07-03-2024 C-REACTIVE PROT 90.10 mg/L High 0.0-3.0 [facility] Comment on above: Order Comment: [id number] 81 Result Comment: C-Re active Protein (CRP) provides useful information for thediagnosis, therapy and monitoring of inflammatory processesand associated diseases. For the evaluation of Relative Riskfor Cardiovascular Disease, a High Sensitivity CRP (HSCRP)should be ordered. Performed By: #### L 300.4310, L504.2610, L501.6710, L500.4050, L101.9900, L100.0100, L300.3900 ####[facility] [address] [place], [address] Comprehensive Metabolic Prof ilon 07-03-2024 Albumin [Mass/Vol] 3.1 g/dL Low 3.2-5.0 [facility] Comment on above: Order Comment: [id number] 81 Performed By: #### L 300.4310, L504.2610, L501.6710, L500.4050, L101.9900, L100.0100, L300.3900 ####[facility] [address] [place], [address] Albumin/Globulin [Mass ratio] 0.7 {ratio} Low 0.9-2.4 [facility] Comment on above: Order Comment: [id number] 81 Performed By: #### L 300.4310, L504.2610, L501.6710, L500.4050, L101.9900, L100.0100, L300.3900 ####[facility] [address] [place], [address] ALK P 50 U/L Normal 45-117 [facility] Comment on above: Order Comment: [id number] 81 Performed By: #### L 300.4310, L504.2610, L501.6710, L500.4050, L101.9900, L100.0100, L300.3900 ####[facility] [address] [place], [address] ALT [Catalytic activity/Vol] 26 U/L Normal 13-56 [facility] Comment on above: Order Comment: [id number] 81 Performed By: #### L 300.4310, L504.2610, L501.6710, L500.4050, L101.9900, L100.0100, L300.3900 ####[facility] [address] [place], [address] AST [Catalytic activity/Vol] 28 U/L Normal 15-37 [facility] Comment on above: Order Comment: [id number] 81 Performed By: #### L 300.4310, L504.2610, L501.6710, L500.4050, L101.9900, L100.0100, L300.3900 ####[facility] [address] [place], [address] Bilirubin [Mass/Vol] 0.40 mg/dL Normal 0.20-1.00 [facility] Comment on above: Order Comment: 07266 81 Result Comment: For patients on eltrombopag therapy, use of Dimension Olmito TBIL is not recommended. Performed By: #### L 300.4310, L504.2610, L501.6710, L500.4050, L101.9900, L100.0100, L300.3900 ####[facility] [address] [place], [address] BUN/CRE 13.2 RATIO Normal 10-20 [facility] Comment on above: Order Comment: [id number] 81 Performed By: #### L 300.4310, L504.2610, L501.6710, L500.4050, L101.9900, L100.0100, L300.3900 ####[facility] [address] [place], [address] CA,Total 9.0 mg/dL Normal 8.5-10.1 [facility] Comment on above: Order Comment: [id number] 81 Performed By: #### L 300.4310, L504.2610, L501.6710, L500.4050, L101.9900, L100.0100, L300.3900 ####[facility] [address] [place], [address] Chloride [Moles/Vol] 109 mmol/L High 98-107 [facility] Comment on above: Order Comment: [id number] 81 Performed By: #### L 300.4310, L504.2610, L501.6710, L500.4050, L101.9900, L100.0100, L300.3900 ####[facility] [address] [place], [address] CO2 [Moles/Vol] 24.0 mmol/L Normal 21.0-32.0 [facility] Comment on above: Order Comment: [id number] 81 Performed By: #### L 300.4310, L504.2610, L501.6710, L500.4050, L101.9900, L100.0100, L300.3900 ####[facility] [address] [place], [address] Creatinine [Mass/Vol] 1.29 mg/dL High 0.55-1.02 [facility] Comment on above: Order Comment: [id number] 81 Result Comment: The validity of the calculated GFR GFRAA in patients over70 years has not been determined. Clinical correlation isessential. Performed By: #### L 300.4310, L504.2610, L501.6710, L500.4050, L101.9900, L100.0100, L300.3900 ####[facility] [address] [place], [address] EST GFR - AA 52 mL/min Low >60 [facility] Comment on above: Order Comment: 04078 81 Result Comment: Afri can Dominican GFR Calc Performed By: #### L 300.4310, L504.2610, L501.6710, L500.4050, L101.9900, L100.0100, L300.3900 ####[facility] [address] [place], [address] GAP 7 Normal 5-15 [facility] Comment on above: Order Comment: [id number] 81 Performed By: #### L 300.4310, L504.2610, L501.6710, L500.4050, L101.9900, L100.0100, L300.3900 ####[facility] [address] [place], [address] GFR/1.73 sq M.predicted among non-blacks MDRD (S/P/Bld) [Vol rate/Area] 43 mL/min/{1.73_m2} Low >60 [facility] Comment on above: Order Comment: [id number] 81 Result Comment: Non- GFR Calc Performed By: #### L 300.4310, L504.2610, L501.6710, L500.4050, L101.9900, L100.0100, L300.3900 ####[facility] [address] [place], [address] Globulin (S) [Mass/Vol] 4.3 g/dL High 2.2-4.2 [facility] Comment on above: Order Comment: [id number] 81 Performed By: #### L 300.4310, L504.2610, L501.6710, L500.4050, L101.9900, L100.0100, L300.3900 ####[facility] [address] [place], [address] Glucose [Mass/Vol] 166 mg/dL High 74-106 [facility] Comment on above: Order Comment: [id number] 81 Result Comment: Fast ing Glucose result greater than or equal to 126 mg/dLsuggests DIABETES MELLITUS per A.D.A. criteria. Performed By: #### L 300.4310, L504.2610, L501.6710, L500.4050, L101.9900, L100.0100, L300.3900 ####[facility] [address] [place], [address] Potassium [Moles/Vol] 3.8 mmol/L Normal 3.5-5.1 [facility] Comment on above: Order Comment: [id number] 81 Performed By: #### L 300.4310, L504.2610, L501.6710, L500.4050, L101.9900, L100.0100, L300.3900 ####[facility] [address] [place], [address] Sodium [Moles/Vol] 140 mmol/L Normal 136-145 [facility] Comment on above: Order Comment: 00013 81 Performed By: #### L 300.4310, L504.2610, L501.6710, L500.4050, L101.9900, L100.0100, L300.3900 ####[facility] [address] [place], [address] T PROT 7.4 g/dL Normal 6.4-8.2 [facility] Comment on above: Order Comment: [id number] 81 Performed By: #### L 300.4310, L504.2610, L501.6710, L500.4050, L101.9900, L100.0100, L300.3900 ####[facility] [address] [place], [address] Urea nitrogen [Mass/Vol] 17 mg/dL Normal 7-18 [facility] Comment on above: Order Comment: [id number] 81 Performed By: #### L 300.4310, L504.2610, L501.6710, L500.4050, L101.9900, L100.0100, L300.3900 ####[facility] [address] [place], [address] ALB Normal 3.2-5.0 [facility] Comment on above: Order Comment: 48700 8 Result Comment: DUPL CIATE Performed By: #### L 2100.0000, L801.1541, L300.3900, L3100.5440, L3100.3425, L3410.2400, L3300.1200, L500.4050 ####[facility] [address] [place], [address] ALK P Normal 45-117 [facility] Comment on above: Order Comment: 86015 8 Result Comment: DUPL CIATE Performed By: #### L 2100.0000, L801.1541, L300.3900, L3100.5440, L3100.3425, L3410.2400, L3300.1200, L500.4050 ####[facility] [address] [place], [address] ALT Normal 13-56 [facility] Comment on above: Order Comment: 11482 8 Result Comment: DUPL CIATE Performed By: #### L 2100.0000, L801.1541, L300.3900, L3100.5440, L3100.3425, L3410.2400, L3300.1200, L500.4050 ####[facility] [address] [place], [address] AST Normal 15-37 [facility] Comment on above: Order Comment: 56744 8 Result Comment: DUPL CIATE Performed By: #### L 2100.0000, L801.1541, L300.3900, L3100.5440, L3100.3425, L3410.2400, L3300.1200, L500.4050 ####[facility] [address] [place], [address] BUN Normal 7-18 [facility] Comment on above: Order Comment: 57362 8 Result Comment: DUPL CIATE Performed By: #### L 2100.0000, L801.1541, L300.3900, L3100.5440, L3100.3425, L3410.2400, L3300.1200, L500.4050 ####[facility] [address] [place], [address] BUN/CRE Normal 10-20 [facility] Comment on above: Order Comment: 53626 8 Result Comment: DUPL CIATE Performed By: #### L 2100.0000, L801.1541, L300.3900, L3100.5440, L3100.3425, L3410.2400, L3300.1200, L500.4050 ####[facility] [address] [place], [address] CA,Total Normal 8.5-10.1 [facility] Comment on above: Order Comment: 77437 8 Result Comment: DUPL CIATE Performed By: #### L 2100.0000, L801.1541, L300.3900, L3100.5440, L3100.3425, L3410.2400, L3300.1200, L500.4050 ####[facility] [address] [place], [address] CL Normal 98-107 [facility] Comment on above: Order Comment: [id number] 8 Result Comment: DUPL CIATE Performed By: #### L 2100.0000, L801.1541, L300.3900, L3100.5440, L3100.3425, L3410.2400, L3300.1200, L500.4050 ####[facility] [address] [place], [address] CO2 Normal 21.0-32.0 [facility] Comment on above: Order Comment: 47820 8 Result Comment: DUPL CIATE Performed By: #### L 2100.0000, L801.1541, L300.3900, L3100.5440, L3100.3425, L3410.2400, L3300.1200, L500.4050 ####[facility] [address] [place], [address] CREAT,SERUM Normal 0.55-1.02 [facility] Comment on above: Order Comment: 25595 8 Result Comment: DUPL CIATE Performed By: #### L 2100.0000, L801.1541, L300.3900, L3100.5440, L3100.3425, L3410.2400, L3300.1200, L500.4050 ####[facility] [address] [place], [address] EST GFR Normal >60 [facility] Comment on above: Order Comment: 90001 8 Result Comment: DUPL CIATE Performed By: #### L 2100.0000, L801.1541, L300.3900, L3100.5440, L3100.3425, L3410.2400, L3300.1200, L500.4050 ####[facility] [address] [place], [address] EST GFR - AA Normal >60 [facility] Comment on above: Order Comment: 01811 8 Result Comment: DUPL CIATE Performed By: #### L 2100.0000, L801.1541, L300.3900, L3100.5440, L3100.3425, L3410.2400, L3300.1200, L500.4050 ####[facility] [address] [place], [address] GAP Normal 5-15 [facility] Comment on above: Order Comment: 91228 8 Result Comment: DUPL CIATE Performed By: #### L 2100.0000, L801.1541, L300.3900, L3100.5440, L3100.3425, L3410.2400, L3300.1200, L500.4050 ####[facility] [address] [place], [address] GLU Normal 74-106 [facility] Comment on above: Order Comment: 86477 8 Result Comment: DUPL CIATE Performed By: #### L 2100.0000, L801.1541, L300.3900, L3100.5440, L3100.3425, L3410.2400, L3300.1200, L500.4050 ####[facility] [address] [place], [address] Potassium Normal 3.5-5.1 [facility] Comment on above: Order Comment: 68555 8 Result Comment: DUPL CIATE Performed By: #### L 2100.0000, L801.1541, L300.3900, L3100.5440, L3100.3425, L3410.2400, L3300.1200, L500.4050 ####[facility] [address] [place], [address] T BILI Normal 0.20-1.00 [facility] Comment on above: Order Comment: [id number] 8 Result Comment: DUPL CIATE Performed By: #### L 2100.0000, L801.1541, L300.3900, L3100.5440, L3100.3425, L3410.2400, L3300.1200, L500.4050 ####[facility] [address] [place], [address] T PROT Normal 6.4-8.2 [facility] Comment on above: Order Comment: 65962 8 Result Comment: DUPL CIATE Performed By: #### L 2100.0000, L801.1541, L300.3900, L3100.5440, L3100.3425, L3410.2400, L3300.1200, L500.4050 ####[facility] [address] [place], [address] Comprehensive Metabolic Profil Normal 136-145 [facility] Comment on above: Order Comment: [id number] 8 Result Comment: DUPL CIATE Performed By: #### L 2100.0000, L801.1541, L300.3900, L3100.5440, L3100.3425, L3410.2400, L3300.1200, L500.4050 ####[facility] [address] [place], [address] Emergency Department Summary on 07-03-2024 Emergency Department Summary Normal [facility] Erythrocyte Sed Rateon 07-03 SED RATE 49 mm/hr High 0-30 [facility] Comment on above: Performed By: #### L 300.4310, L504.2610, L501.6710, L500.4050, L101.9900, L100.0100, L300.3900 ####[facility] [id number] [place], [address] H AND P Exam - Hospital[facility] 07-03-2024 H&P Exam - Hospitalist Normal [facility] HH, Hemoglobin AND Hematocri ton 07-03-2024 Hematocrit (Bld) [Volume fraction] 30.8 % Low 37-47 [facility] Comment on above: Performed By: #### L 100.0600 ####[facility] [address] [place], [address] Hemoglobin (Bld) [Mass/Vol] 9.8 g/dL Low 12.0-15.0 [facility] Comment on above: Performed By: #### L 100.0600 ####[facility] [address] [place], [address] LDHon 07-03-2024 LDH 199 U/L Normal 84-246 [facility] Comment on above: Order Comment: [id number] Performed By: #### L 300.4310, L504.2610, L501.6710, L500.4050, L101.9900, L100.0100, L300.3900 ####[facility] [address] [place], [address] Partial Thromboplast Timeon 07-03-2024 aPTT Coag (Bld) [Time] 28.2 s Normal 24.1-36.2 [facility] Comment on above: Performed By: #### L 300.4310, L504.2610, L501.6710, L500.4050, L101.9900, L100.0100, L300.3900 ####[facility] [address] [place], [address] Prothrombin Time w/INRon INR Coag (PPP) [Relative time] 1.2 {INR} Normal [facility] Comment on above: Performed By: #### L 300.4310, L504.2610, L501.6710, L500.4050, L101.9900, L100.0100, L300.3900 ####[facility] [address] [place], [address] PT Coag (PPP) [Time] 15.0 s High 11.7-14.9 [facility] Comment on above: Performed By: #### L 300.4310, L504.2610, L501.6710, L500.4050, L101.9900, L100.0100, L300.3900 ####[facility] [address] [place], [address] INR Normal [facility] Comment on above: Result Comment: DUPL ICATE Performed By: #### L 2100.0000, L801.1541, L300.3900, L3100.5440, L3100.3425, L3410.2400, L3300.1200, L500.4050 ####[facility] [address] [place], [address] PROTIME Normal 11.7-14.9 [facility] Comment on above: Result Comment: DUPL ICATE Performed By: #### L 2100.0000, L801.1541, L300.3900, L3100.5440, L3100.3425, L3410.2400, L3300.1200, L500.4050 ####[facility] [address] [place], [address] Stool Occult Blood iFOBon STOB Positive Normal [facility] Comment on above: Performed By: #### M 100.7900 ####[facility] [address] [place], [address] 36on 06-28-2024 36 Name of caller: Beatrice n Contact phone number: [phone] Relationship to Patient: Spouse Provider: Practice: [place] Chief Complaint/Reason for Call: Patients Spouse called in to cancel appointment today at 10 am for Lab work. Spouse stated he just got home with the Patient from the Emergency Room. Spouse stated the Patient had some labs done in the [place] [facility] and wanted to inform the doctor. Please advise. Best time of day caller can be reached: N/A Patient advised that office/PCP has 24-48 business hours to return their call: N/A Normal [facility] Abdomen/Pelvis W IV Cont ONL Yon 06-28-2024 Abdomen/Pelvis W IV Cont ONLY Normal [facility] CBC W/Diff, Automatedon Absolute Lymph 1.21 X10 3/uL Normal 0.83-4.51 [facility] Comment on above: Performed By: #### L 500.4050, L100.0100 ####[facility] [address] [place], [address] Absolute Neut 6.5 X10 3/uL Normal 2.0-7.7 [facility] Comment on above: Performed By: #### L 500.4050, L100.0100 ####[facility] [address] [place], [address] Basophils/100 WBC (Bld) 0.1 % Normal 0-1 [facility] Comment on above: Performed By: #### L 500.4050, L100.0100 ####[facility] [address] [place], [address] Eosinophils/100 WBC (Bld) 0.2 % Normal 0-5 [facility] Comment on above: Performed By: #### L 500.4050, L100.0100 ####[facility] [address] [place], [address] Erythrocyte distribution width (RBC) [Ratio] 13.5 % Normal 11.6-14.6 [facility] Comment on above: Performed By: #### L 500.4050, L100.0100 ####[facility] [address] [place], [address] Hematocrit (Bld) [Volume fraction] 36.5 % Low 37-47 [facility] Comment on above: Performed By: #### L 500.4050, L100.0100 ####[facility] [address] [place], [address] Hemoglobin (Bld) [Mass/Vol] 11.9 g/dL Low 12.0-15.0 [facility] Comment on above: Performed By: #### L 500.4050, L100.0100 ####[facility] [address] [place], [address] IG% 0.400 Normal 0.0-0.9 [facility] Comment on above: Result Comment: IG% - Immature Granulocytes (promyelocytes, myelocytes andmetamyelocytes) > 1% indicates that a LEFT SHIFT is Present. Performed By: #### L 500.4050, L100.0100 ####[facility] [address] [place], [address] Lymphocytes/100 WBC (Bld) 14.2 % Low 19-41 [facility] Comment on above: Performed By: #### L 500.4050, L100.0100 ####[facility] [address] [place], [address] MCH (RBC) [Entitic mass] 30.4 pg Normal 27.0-32.0 [facility] Comment on above: Performed By: #### L 500.4050, L100.0100 ####[facility] [address] [place], [address] MCHC (RBC) [Mass/Vol] 32.6 g/dL Normal 32-36 [facility] Comment on above: Performed By: #### L 500.4050, L100.0100 ####[facility] [address] [place], [address] MCV (RBC) [Entitic vol] 93.1 fL Normal 81-99 [facility] Comment on above: Performed By: #### L 500.4050, L100.0100 ####[facility] [address] [place], [address] Monocytes/100 WBC (Bld) 8.5 % Normal 0-10 [facility] Comment on above: Performed By: #### L 500.4050, L100.0100 ####[facility] [address] [place], [address] Neutrophils/100 WBC (Bld) 76.6 % High 47-70 [facility] Comment on above: Performed By: #### L 500.4050, L100.0100 ####[facility] [address] [place], [address] Nucleated RBC (Bld) [#/Vol] 0 10*3/uL Normal 0-5 [facility] Comment on above: Performed By: #### L 500.4050, L100.0100 ####[facility] [address] [place], [address] Platelet mean volume (Bld) [Entitic vol] 11.5 fL Normal 6.2-12.0 [facility] Comment on above: Performed By: #### L 500.4050, L100.0100 ####[facility] [address] [place], [address] Platelets (Bld) [#/Vol] 119 10*3/uL Low 150-450 [facility] Comment on above: Performed By: #### L 500.4050, L100.0100 ####[facility] [address] [place], [address] RBC (Bld) [#/Vol] 3.92 10*6/uL Low 4.2-5.4 [facility] Comment on above: Performed By: #### L 500.4050, L100.0100 ####[facility] [address] [place], [address] RDW SD 46.1 fl High 35.1-43.9 [facility] Comment on above: Performed By: #### L 500.4050, L100.0100 ####[facility] [address] [place], [address] WBC (Bld) [#/Vol] 8.5 10*3/uL Normal 4.4-11.0 [facility] Comment on above: Performed By: #### L 500.4050, L100.0100 ####[facility] [address] [place], [address] Comprehensive Metabolic [facility] 06-28-2024 Albumin [Mass/Vol] 3.8 g/dL Normal 3.2-5.0 [facility] Comment on above: Performed By: #### L 500.4050, L100.0100 ####[facility] [address] [place], [address] Albumin/Globulin [Mass ratio] 1.1 {ratio} Normal 0.9-2.4 [facility] Comment on above: Performed By: #### L 500.4050, L100.0100 ####[facility] [address] [place], [address] ALK P 47 U/L Normal 45-117 [facility] Comment on above: Performed By: #### L 500.4050, L100.0100 ####[facility] [address] [place], [address] ALT [Catalytic activity/Vol] 19 U/L Normal 13-56 [facility] Comment on above: Performed By: #### L 500.4050, L100.0100 ####[facility] [address] [place], [address] AST [Catalytic activity/Vol] 29 U/L Normal 15-37 [facility] Comment on above: Performed By: #### L 500.4050, L100.0100 ####[facility] [address] [place], [address] Bilirubin [Mass/Vol] 0.50 mg/dL Normal 0.20-1.00 [facility] Comment on above: Result Comment: For patients on eltrombopag therapy, use of Dimension Olmito TBIL is not recommended. Performed By: #### L 500.4050, L100.0100 ####[facility] [address] [place], [address] BUN/CRE 26.1 RATIO High 10-20 [facility] Comment on above: Performed By: #### L 500.4050, L100.0100 ####[facility] [address] [place], [address] CA,Total 9.1 mg/dL Normal 8.5-10.1 [facility] Comment on above: Performed By: #### L 500.4050, L100.0100 ####[facility] [address] [place], [address] Chloride [Moles/Vol] 101 mmol/L Normal 98-107 [facility] Comment on above: Performed By: #### L 500.4050, L100.0100 ####[facility] [address] [place], [address] CO2 [Moles/Vol] 28.0 mmol/L Normal 21.0-32.0 [facility] Comment on above: Performed By: #### L 500.4050, L100.0100 ####[facility] [address] [place], [address] Creatinine [Mass/Vol] 1.34 mg/dL High 0.55-1.02 [facility] Comment on above: Result Comment: The validity of the calculated GFR GFRAA in patients over70 years has not been determined. Clinical correlation isessential. Performed By: #### L 500.4050, L100.0100 ####[facility] [address] [place], [address] ECRCL 36.78 ml/min Normal [facility] Comment on above: Performed By: #### L 500.4050, L100.0100 ####[facility] [address] [place], [address] EST GFR - AA 50 mL/min Low >60 [facility] Comment on above: Result Comment: Afri can Dominican GFR Calc Performed By: #### L 500.4050, L100.0100 ####[facility] [address] [place], [address] GAP 8 Normal 5-15 [facility] Comment on above: Performed By: #### L 500.4050, L100.0100 ####[facility] [address] [place], [address] GFR/1.73 sq M.predicted among non-blacks MDRD (S/P/Bld) [Vol rate/Area] 41 mL/min/{1.73_m2} Low >60 [facility] Comment on above: Result Comment: Non- GFR Calc Performed By: #### L 500.4050, L100.0100 ####[facility] [address] [place], [address] Globulin (S) [Mass/Vol] 3.6 g/dL Normal 2.2-4.2 [facility] Comment on above: Performed By: #### L 500.4050, L100.0100 ####[facility] [address] [place], [address] Glucose [Mass/Vol] 162 mg/dL High 74-106 [facility] Comment on above: Result Comment: Fast ing Glucose result greater than or equal to 126 mg/dLsuggests DIABETES MELLITUS per A.D.A. criteria. Performed By: #### L 500.4050, L100.0100 ####[facility] [address] [place], [address] Potassium [Moles/Vol] 3.9 mmol/L Normal 3.5-5.1 [facility] Comment on above: Performed By: #### L 500.4050, L100.0100 ####[facility] [address] [place], [address] Sodium [Moles/Vol] 137 mmol/L Normal 136-145 [facility] Comment on above: Performed By: #### L 500.4050, L100.0100 ####[facility] [address] [place], [address] T PROT 7.4 g/dL Normal 6.4-8.2 [facility] Comment on above: Performed By: #### L 500.4050, L100.0100 ####[facility] [address] [place], [address] Urea nitrogen [Mass/Vol] 35 mg/dL High 7-18 [facility] Comment on above: Performed By: #### L 500.4050, L100.0100 ####[facility] [address] [place], [address] Emergency Department Summary on 06-28-2024 Emergency Department Summary Normal [facility] Lactic Acidon 06-28-2024 Lactate [Moles/Vol] 1.4 mmol/L Normal 0.4-1.9 [facility] Comment on above: Order Comment: Y Performed By: #### L 501.2450, L503.6005 ####[facility] [address] [place], [address] Lipaseon 06-28-2024 Lipase [Catalytic activity/Vol] 21 U/L Normal 13-75 [facility] Comment on above: Result Comment: Josy fay note:LIPASE revised reference range effective 23.New Lipase methodology. Expected to produce lower valuesthan the previous assay method.NEW Reference Range: 13 - 75 U/L Performed By: #### L 501.2450, L503.6005 ####[facility] [address] [place], [address] Urinalysis, Completeon 06-28 BACTERIA 1+ /hpf Normal None Seen [facility] Comment on above: Order Comment: CLEAN CATCH Performed By: #### L 400.0001 ####[facility] [address] [place], [address] CAST,FINE GRAN 0-5 SEEN Normal 0-5 [facility] Comment on above: Order Comment: CLEAN CATCH Performed By: #### L 400.0001 ####[facility] [address] [place], [address] CAST,HYALINE 5-10 SEEN Normal 0-5 [facility] Comment on above: Order Comment: CLEAN CATCH Performed By: #### L 400.0001 ####[facility] [address] [place], [address] EPI,SQUAMOUS 5-10 SEEN Normal 5-10 [facility] Comment on above: Order Comment: CLEAN CATCH Performed By: #### L 400.0001 ####[facility] [address] [place], [address] RBC 10-25 SEEN Normal 0-5 [facility] Comment on above: Order Comment: CLEAN CATCH Performed By: #### L 400.0001 ####[facility] [address] [place], [address] WBC 25-50 SEEN Normal 0-5 [facility] Comment on above: Order Comment: CLEAN CATCH Performed By: #### L 400.0001 ####[facility] [address] [place], [address] Mucus Ql (Urine sed) 0 SEEN Normal [facility] Comment on above: Order Comment: CLEAN CATCH Performed By: #### L 400.0001 ####[facility] [address] [place], [place], [address] LABORATORYOrdered By: Cheli Kuo on 05-19-2024 Cholesterol [...] [Mass/Vol] 136 mg/dL Normal 0-200 [facility] ([place]) Comment on above: Result Comment: Chol esterol Reference Interval: Less than 200 Desirable 200-239 Borderline high risk 240 and above High risk Performed By: #### C RE, GFR #### [address] [address] Cholesterol in HDL [Mass/Vol] 42 mg/dL Normal 40-60 [facility] ([place]) Comment on above: Performed By: #### C RE, GFR #### [address] [address] Cholesterol in LDL [Mass/Vol] 69 mg/dL Normal 0-130 [facility] ([place]) Comment on above: Performed By: #### C RE, GFR #### [address] [address] Triglyceride [Mass/Vol] 123 mg/dL Normal 0-150 [facility] ([place]) Comment on above: Result Comment: Trig lyceride Reference Interval: Less than 150 Normal 150-199 Borderline high risk 200-499 High risk 500 or higher Very high risk Performed By: #### C RE, GFR #### [address] [address] PBNPon 05-19-2024 Natriuretic peptide B (Bld) [Mass/Vol] 578 pg/mL High 0-125 [facility] ([place]) Comment on above: Result Comment: NT-p roBNP results of less than 300 pg/mL effectively rules out acute congestive heart failure with 99% negative predictive value. Performed By: #### C RE, GFR #### [address] [address] [address] ANGIOGRAPHY ABD AORTA + I LIOFEMORALon [...] flow FINDINGS: Note: Study is submitted to [facility] for interpretation on April 24, 2024, 1:27 [...] 04/24/2024 1:31:15 PM Ordering Provider: ADRIENNE BYERS [facility] ([place]) .GFRon 04-07-2024 GFR 51 ml/min/1.73sqm Normal [facility] ([place]) Comment on above: Result Comment: GFR Population [...] Performed By: #### C RE, GFR #### [address] [address] GFR Non- 42 ml/min/1.73sqm Normal [facility] ([place]) Comment on above: Result Comment: GFR Population [...] Performed By: #### C RE, GFR #### [address] [address] CREon 04-07-2024 Creatinine [Mass/Vol] 1.25 mg/dL High 0.55-1.02 [facility] ([place]) Comment on above: Performed By: #### C RE, GFR #### [address] [address] Absolute lymphocyte countOrd ered By: Alonso Marte on 03-15-2024 Lymphocytes Auto (Unsp spec) [#/Vol] 3.07 10*3/uL 0.83-4.51 [facility] Automated lymphocyte count a s percentage of total leukocytesOrdered By: Alonso Marte on 03-15-2024 Lymphocytes/100 WBC Auto (Unsp spec) 51.0 % 19-41 [facility] Basophil percentageOrdered B y: Alonso Marte on 03-15-2024 Basophils/100 WBC (Bld) 0.7 % 0-1 [facility] Chloride [Moles/Vol] 107 mmol/L 98-107 [facility] Eosinophils/100 WBC (Bld) 1.0 % 0-5 [facility] Glucose [Mass/Vol] 122 mg/dL 74-106 [facility] Comment on above: Fasting Glucose resu lt from 100 to 125 mg/dL suggests IMPAIRED HOMEOSTASIS per A.D.A. criteria. Hemoglobin (Bld) [Mass/Vol] 11.3 g/dL 12.0-15.0 [facility] Monocytes/100 WBC (Bld) 8.8 % 0-10 [facility] Neutrophils (Bld) [#/Vol] 2.3 10*3/uL 2.0-7.7 [facility] Neutrophils/100 WBC (Bld) 38.2 % 47-70 [facility] Potassium [Moles/Vol] 4.5 mmol/L 3.5-5.1 [facility] Sodium [Moles/Vol] 139 mmol/L 136-145 [facility] WBC (Bld) [#/Vol] 6.0 10*3/uL 4.4-11.0 [facility] Determination of erythrocyte mean corpuscular volume (MCV)Ordered By: Alonso Marte on 03-15-2024 MCV (RBC) [Entitic vol] 96.5 fL 81-99 [facility] Erythrocyte distribution wid th ratioOrdered By: Alonso Marte 03-15-2024 Erythrocyte distribution width (RBC) [Ratio] 14.6 % 11.6-14.6 [facility] Erythrocyte distribution wid th standard deviationOrdered By: Alonso Marte on 03-15-2024 Erythrocyte distribution width (RBC) [Entitic vol] 52.5 fL 35.1-43.9 [facility] Hematocrit Auto (Bld) [Volum e fraction]Ordered By: Alonso Marte 03-15-2024 Hematocrit (Bld) [Volume fraction] 35.9 % 37-47 [facility] Immature granulocytes/100 WB C Auto (Bld)Ordered By: Alonso Mrate on 03-15-2024 Immature granulocytes/100 WBC (Bld) 0.300 % 0.0-0.9 [facility] Comment on above: IG% - Immature Granu locytes (promyelocytes, myelocytes and metamyelocytes) > 1% indicates that a LEFT SHIFT is Present. Laboratory - Chemistry and C hemistry - challengeOrdered By: Alonso Marte on 03-15-2024 CO2 [Moles/Vol] 28.0 mmol/L 21.0-32.0 [facility] Urea nitrogen/Creatinine [Mass ratio] 23.8 mg/mg 10-20 [facility] Laboratory - Hematology and Cell countsOrdered By: Alonso Marte on 03-15-2024 MCH (RBC) [Entitic mass] 30.4 pg 27.0-32.0 [facility] MCHC (RBC) [Mass/Vol] 31.5 g/dL 32-36 [facility] Nucleated RBC/100 WBC (Bld) [Ratio] 0 % 0-5 [facility] Platelet mean volume (Bld) [Entitic vol] 11.2 fL 6.2-12.0 [facility] Platelets (Bld) [#/Vol] 206 10*3/uL 150-450 [facility] No Panel InformationOrdered By: Alonso Marte on 03-15-2024 Estimated Creatinine Clearance Calc 45.89 ml/min [facility] Estimated GFR (MDRD) Amer 66 mL/min >60 [facility] Comment on above: GFR Calc Estimated GFR (MDRD) Non-Af Amer 55 mL/min >60 [facility] Comment on above: Non- GFR Calc RBC Auto (Bld) [#/Vol]Ordere d By: Alonso Marte on 03-15-2024 RBC (Bld) [#/Vol] 3.72 10*6/uL 4.2-5.4 [facility] Serum or plasma calcium loco urement (mass/volume)Ordered By: Alonso Marte on 03-15-2024 Calcium [Mass/Vol] 9.3 mg/dL 8.5-10.1 [facility] Serum or plasma creatinine m easurement (mass/volume)Ordered By: Alonso Marte on 03-15-2024 Creatinine [Mass/Vol] 1.05 mg/dL 0.55-1.02 [facility] Comment on above: The validity of the calculated GFR & GFRAA in patients over 70 years has not been determined. Clinical correlation is essential. Serum or plasma urea nitroge n measurement (mass/volume)Ordered By: Alonso Marte on 03-15-2024 Urea nitrogen [Mass/Vol] 25 mg/dL 7-18 [facility] Thin prep Papanicolaou smear with manual screeningOrdered By: Alonso Marte on 03-15-2024 Thin prep Papanicolaou smear with manual screening 116 mg/dL 74-106 [facility] Comment on above: MANAGEMENT OF PATIEN T CARE PER NURSING PROTOCOL Thin prep Papanicolaou smear with manual screening 4 5-15 [facility] No Panel InformationOrdered By: Alonso Marte on 03-02-2024 Vitamin D 25-Hydroxy 54.2 ng/mL [facility] Comment on above: Vitamin D 25(OH) Sta tus Range Deficiency <20 ng/mL (50nmol/L) Insufficiency 20 - 30 ng/mL (50 - 75 nmol/L) Sufficiency 30 - 100 ng/mL (75 - 250 nmol/L) Toxicity >100 ng/mL (>250 nmol/L) Absolute lymphocyte countOrd ered By: Heike Horta on 02-29-2024 Lymphocytes Auto (Unsp spec) [#/Vol] 1.82 10*3/uL 0.83-4.51 [facility] Automated lymphocyte count a s percentage of total leukocytesOrdered By: Heike Horta on 02-29-2024 Lymphocytes/100 WBC Auto (Unsp spec) 43.5 % 19-41 [facility] Basophil percentageOrdered B y: Heike Horta on 02-29-2024 Basophils/100 WBC (Bld) 0.5 % 0-1 [facility] Chloride [Moles/Vol] 115 mmol/L 98-107 [facility] Eosinophils/100 WBC (Bld) 3.3 % 0-5 [facility] Glucose [Mass/Vol] 119 mg/dL 74-106 [facility] Comment on above: Fasting Glucose resu lt from 100 to 125 mg/dL suggests IMPAIRED HOMEOSTASIS per A.D.A. criteria. Hemoglobin (Bld) [Mass/Vol] 8.8 g/dL 12.0-15.0 [facility] Monocytes/100 WBC (Bld) 10.0 % 0-10 [facility] Neutrophils (Bld) [#/Vol] 1.8 10*3/uL 2.0-7.7 [facility] Neutrophils/100 WBC (Bld) 42.5 % 47-70 [facility] Potassium [Moles/Vol] 3.3 mmol/L 3.5-5.1 [facility] Sodium [Moles/Vol] 144 mmol/L 136-145 [facility] WBC (Bld) [#/Vol] 4.2 10*3/uL 4.4-11.0 [facility] Blood manual differential co mment interpretation (narrative result)Ordered By: Heike Horta on 02-29-2024 Manual differential comment Jake (Bld) [Interp] SCANNED [facility] Determination of erythrocyte mean corpuscular volume (MCV)Ordered By: Heike Horta on 02-29-2024 MCV (RBC) [Entitic vol] 92.3 fL 81-99 [facility] Erythrocyte distribution wid th ratioOrdered By: Heike Horta on 02-29-2024 Erythrocyte distribution width (RBC) [Ratio] 14.3 % 11.6-14.6 [facility] Erythrocyte distribution wid th standard deviationOrdered By: Heike Horta on 02-29-2024 Erythrocyte distribution width (RBC) [Entitic vol] 48.5 fL 35.1-43.9 [facility] Hematocrit Auto (Bld) [Volum e fraction]Ordered By: Heike Horta on 02-29-2024 Hematocrit (Bld) [Volume fraction] 27.4 % 37-47 [facility] Immature granulocytes/100 WB C Auto (Bld)Ordered By: Heike Horta on 02-29-2024 Immature granulocytes/100 WBC (Bld) 0.200 % 0.0-0.9 [facility] Comment on above: IG% - Immature Granu locytes (promyelocytes, myelocytes and metamyelocytes) > 1% indicates that a LEFT SHIFT is Present. Laboratory - Chemistry and C hemistry - challengeOrdered By: Heike Horta on 02-29-2024 CO2 [Moles/Vol] 23.0 mmol/L 21.0-32.0 [facility] Urea nitrogen/Creatinine [Mass ratio] 5.5 mg/mg 10-20 [facility] Laboratory - Chemistry and C hemistry - challengeOrdered By: Ganesh Kiran on 02-29-2024 Magnesium [Mass/Vol] 1.6 mg/dL 1.6-2.6 [facility] Laboratory - Hematology and Cell countsOrdered By: Heike Horta on 02-29-2024 MCH (RBC) [Entitic mass] 29.6 pg 27.0-32.0 [facility] MCHC (RBC) [Mass/Vol] 32.1 g/dL 32-36 [facility] Nucleated RBC/100 WBC (Bld) [Ratio] 0 % 0-5 [facility] Platelet mean volume (Bld) [Entitic vol] 10.6 fL 6.2-12.0 [facility] Platelets (Bld) [#/Vol] 199 10*3/uL 150-450 [facility] No Panel InformationOrdered By: Heike Horta on 02-29-2024 Estimated Creatinine Clearance Calc 59.58 ml/min [facility] Estimated GFR (MDRD) Amer 102 mL/min >60 [facility] Comment on above: GFR Calc Estimated GFR (MDRD) Non-Af Amer 85 mL/min >60 [facility] Comment on above: Non- GFR Calc RBC Auto (Bld) [#/Vol]Ordere d By: Heike Horta on 02-29-2024 RBC (Bld) [#/Vol] 2.97 10*6/uL 4.2-5.4 [facility] Serum or plasma calcium loco urement (mass/volume)Ordered By: Heike Horta on 02-29-2024 Calcium [Mass/Vol] 7.6 mg/dL 8.5-10.1 [facility] Serum or plasma creatinine m easurement (mass/volume)Ordered By: Heike Horta on 02-29-2024 Creatinine [Mass/Vol] 0.72 mg/dL 0.55-1.02 [facility] Comment on above: The validity of the calculated GFR & GFRAA in patients over 70 years has not been determined. Clinical correlation is essential. Serum or plasma urea nitroge n measurement (mass/volume)Ordered By: Heike Horta on 02-29-2024 Urea nitrogen [Mass/Vol] 4 mg/dL 7-18 [facility] Thin prep Papanicolaou smear with manual screeningOrdered By: Heike Horta on 02-29-2024 Thin prep Papanicolaou smear with manual screening 6 5-15 [facility] Basophil percentageOrdered B y: Ganesh Kiran on 02-28-2024 Basophil percentage 2.0 mg/dL 2.5-4.9 [facility] Serum or plasma trough vanco mycin levelOrdered By: Heike Horta on 02-27-2024 Vancomycin trough [Mass/Vol] 13.3 ug/mL 5.0-15.0 [facility] Comment on above: VANCOMYCIN STANDARED DRUG THERAPY TROUGH LEVEL: 5.0 - 15.0 mg/L VANCOMYCIN HIGH INTENSITY THERAPY TROUGH LEVEL: 15.0 - 20.0 mg/L High Intensity therapy recommended for serious lifethreatening infections include:- Dtwgypisoy-Dvjxvbwcqwuh-Fmplonbli (Ventilator/Healtcare Associated)-Sepsis PLEASE CONTACT PHARMACY SERVICES (#[id number]) FOR INTERPRETATIONOF RESULTS. Culture, urineOrdered By: Allison Greco on 02-26-2024 Bacteria identified Cx Nom (U) Culture exhibits no growth. [facility] Basophil percentageOrdered B y: Heike Horta on 02-25-2024 Basophil percentage 0 SEEN /hpf 0-5 [facility] Bilirubin Test strip Ql (U)O rdered By: Heike Horta on 02-25-2024 Bilirubin Ql (U) Negative Negative [facility] Ketones Test strip Ql (U)Ord ered By: Heike Horta on 02-25-2024 Ketones Ql (U) 5 mg/dl Negative [facility] Laboratory - Microbiology an d Antimicrobial susceptibilityOrdered By: Heike Horta on 02-25-2024 Bacteria identified Cx Nom (Bld) No growth in 5 days. [facility] Mucus LM Ql (Urine sed)Order ed By: Heike Horta on 02-25-2024 Mucus Ql (Urine sed) 0 SEEN /hpf [facility] Nitrite Test strip Ql (U)Ord ered By: Heike Horta on 02-25-2024 Nitrite Ql (U) Negative Negative [facility] No Panel InformationOrdered By: Heike Horta on 02-25-2024 Urine RBC 0 SEEN /hpf 0-5 [facility] Protein Test strip Ql (U)Ord ered By: Heike Horta on 02-25-2024 Protein Ql (U) 15 mg/dl Negative [facility] Squamous epithelial cells de tection in urine sediment by light microscopyOrdered By: Heike Horta on 02-25-2024 Epithelial cells.squamous LM Ql (Urine sed) 0 SEEN /hpf 5-10 [facility] Urine blood detectionOrdered By: Heike Horta on 02-25-2024 RBC Ql (U) Negative Negative [facility] Urine clarityOrdered By: Selina Horta on 02-25-2024 Clarity (U) Clear Clear [facility] Urine color determinationOrd ered By: Heike Horta on 02-25-2024 Color (U) Yellow Yellow [facility] Urine glucose detectionOrder ed By: Heike Horta on 02-25-2024 Glucose Ql (U) 1000 mg/dl Normal [facility] Urine leukocyte esterase det ection by dipstickOrdered By: Heike Horta on 02-25-2024 Leukocyte esterase Test strip Ql (U) Negative Negative [facility] Urine pHOrdered By: Heike Singh am on 02-25-2024 pH (U) 5.0 [pH] 5.0 - 8.0 [facility] Urine sediment bacteria coun t by microscopy (number/high power field)Ordered By: Heike Horta on 02-25-2024 Bacteria LM.HPF (Urine sed) [#/Area] 0 /[HPF] None Seen [facility] Urine specific gravity measu rementOrdered By: Heike Horta on 02-25-2024 Specific gravity (U) [Rel density] 1.020 1.002-1.03 0 [facility] Urine urobilinogen measureme ntOrdered By: Heike Horta on 02-25-2024 Urobilinogen Ql (U) Normal mg/dl Normal [facility] Thin prep Papanicolaou smear with manual screeningOrdered By: Heike Horta on 02-22-2024 Thin prep Papanicolaou smear with manual screening 183 mg/dL 74-106 [facility] Comment on above: MANAGEMENT OF PATIEN T CARE PER NURSING PROTOCOL Whole blood hemoglobin A1c/t otal hemoglobin ratio (mass fraction)Ordered By: Jose Sahni on 02-22-2024 HbA1c (Bld) [Mass fraction] 7.0 % 3.8-5.6 [facility] Comment on above: Normal < 5.7 % Predi abetic 5.7 - 6.4 % Diabetic >or= 6.5 % Please note range changes. Absolute lymphocyte countOrd ered By: Jose Jaime on 02-21-2024 Lymphocytes Auto (Unsp spec) [#/Vol] 1.08 10*3/uL 0.83-4.51 [facility] Activated partial thrombopla stin time (aPTT) in platelet poor plasma by coagulation aOrdered By: Jose Jaime on 02-21-2024 aPTT Coag (PPP) [Time] 24.8 s 24.1-36.2 [facility] Automated lymphocyte count a s percentage of total leukocytesOrdered By: Jose Jaime on 02-21-2024 Lymphocytes/100 WBC Auto (Unsp spec) 5.3 % 19-41 [facility] Basophil percentageOrdered B y: Jose Jaime on 02-21-2024 Lactate [Moles/Vol] 1.5 mmol/L 0.4-2.0 [facility] Basophil percentage 0-5 SEEN /hpf 0-5 [facility] Basophils/100 WBC (Bld) 0.1 % 0-1 [facility] Bilirubin [Mass/Vol] 0.60 mg/dL 0.20-1.00 [facility] Comment on above: For patients on eltr ombopag therapy, use of Dimension [place] TBIL is not recommended. Chloride [Moles/Vol] 100 mmol/L 98-107 [facility] Eosinophils/100 WBC (Bld) 0.0 % 0-5 [facility] Glucose [Mass/Vol] 241 mg/dL 74-106 [facility] Comment on above: Glucose result great er than or equal to 200 mg/dLsuggests DIABETES MELLITUS per A.D.A. criteria. Hemoglobin (Bld) [Mass/Vol] 12.2 g/dL 12.0-15.0 [facility] Monocytes/100 WBC (Bld) 5.5 % 0-10 [facility] Neutrophils (Bld) [#/Vol] 18.1 10*3/uL 2.0-7.7 [facility] Neutrophils/100 WBC (Bld) 88.4 % 47-70 [facility] Potassium [Moles/Vol] 4.6 mmol/L 3.5-5.1 [facility] Protein [Mass/Vol] 7.8 g/dL 6.4-8.2 [facility] Sodium [Moles/Vol] 137 mmol/L 136-145 [facility] WBC (Bld) [#/Vol] 20.5 10*3/uL 4.4-11.0 [facility] Bilirubin Test strip Ql (U)O rdered By: Jose Jaime on 02-21-2024 Bilirubin Ql (U) 1 mg/dL Negative [facility] Comment on above: COLOR OF URINE MAY A FFECT DIPSTICK RESULTS. Determination of erythrocyte mean corpuscular volume (MCV)Ordered By: Jose Jaime on 02-21-2024 MCV (RBC) [Entitic vol] 91.5 fL 81-99 [facility] Erythrocyte distribution wid th ratioOrdered By: Jose Jaime on 02-21-2024 Erythrocyte distribution width (RBC) [Ratio] 13.3 % 11.6-14.6 [facility] Erythrocyte distribution wid th standard deviationOrdered By: Jose Jaime on 02-21-2024 Erythrocyte distribution width (RBC) [Entitic vol] 45.0 fL 35.1-43.9 [facility] Hematocrit Auto (Bld) [Volum e fraction]Ordered By: Jose Jaime on 02-21-2024 Hematocrit (Bld) [Volume fraction] 36.4 % 37-47 [facility] Immature granulocytes/100 WB C Auto (Bld)Ordered By: Jose Jaime on 02-21-2024 Immature granulocytes/100 WBC (Bld) 0.700 % 0.0-0.9 [facility] Comment on above: IG% - Immature Granu locytes (promyelocytes, myelocytes and metamyelocytes) > 1% indicates that a LEFT SHIFT is Present. Ketones Test strip Ql (U)Ord ered By: Jose Jaime on 02-21-2024 Ketones Ql (U) 5 mg/dl Negative [facility] Laboratory - Chemistry and C hemistry - challengeOrdered By: Jose Jaime on 02-21-2024 Albumin/Globulin [Mass ratio] 0.9 {ratio} 0.9-2.4 [facility] ALP [Catalytic activity/Vol] 58 U/L 45-117 [facility] ALT [Catalytic activity/Vol] 28 U/L 13-56 [facility] CO2 [Moles/Vol] 24.0 mmol/L 21.0-32.0 [facility] Globulin (S) [Mass/Vol] 4.1 g/dL 2.2-4.2 [facility] Lipase [Catalytic activity/Vol] 18 U/L 13-75 [facility] Comment on above: Please note:LIPASE r evised reference range effective 23. New Lipase methodology. Expected to produce lower values than the previous assay method. NEW Reference Range: 13 - 75 U/L Urea nitrogen/Creatinine [Mass ratio] 14.9 mg/mg 10-20 [facility] Laboratory - CoagulationOrde red By: Jose Jaime on 02-21-2024 INR Coag (Bld) [Relative time] 1.2 {INR} [facility] PT Coag (PPP) [Time] 15.1 s 11.7-14.9 [facility] - Hematology and Cell countsOrdered By: Jose Jaime on 02-21-2024 MCH (RBC) [Entitic mass] 30.7 pg 27.0-32.0 [facility] MCHC (RBC) [Mass/Vol] 33.5 g/dL 32-36 [facility] Nucleated RBC/100 WBC (Bld) [Ratio] 0 % 0-5 [facility] Platelet mean volume (Bld) [Entitic vol] 11.3 fL 6.2-12.0 [facility] Platelets (Bld) [#/Vol] 198 10*3/uL 150-450 [facility] Lower GI hemoglobin IA Ql (S tl)Ordered By: Jose Jaime on 02-21-2024 Stool Occult Blood (EDUARDO) Positive [facility] Mucus LM Ql (Urine sed)Order ed By: Jose Jaime on 02-21-2024 Mucus Ql (Urine sed) 0 SEEN /hpf [facility] Nitrite Test strip Ql (U)Ord ered By: Jose Jaime on 02-21-2024 Nitrite Ql (U) Negative Negative [facility] No Panel InformationOrdered By: Jose Jaime on 02-21-2024 Urine RBC 0-5 SEEN /hpf 0-5 [facility] Estimated GFR (MDRD) Amer 30 mL/min >60 [facility] Comment on above: GFR Calc Estimated GFR (MDRD) Non-Af Amer 25 mL/min >60 [facility] Comment on above: Non- GFR Calc Protein Test strip Ql (U)Ord ered By: Jose Jaime on 02-21-2024 Protein Ql (U) 15 mg/dl Negative [facility] RBC Auto (Bld) [#/Vol]Ordere d By: Jose Jaime on 02-21-2024 RBC (Bld) [#/Vol] 3.98 10*6/uL 4.2-5.4 [facility] Serum or plasma calcium loco urement (mass/volume)Ordered By: Jose Jaime on 02-21-2024 Calcium [Mass/Vol] 9.4 mg/dL 8.5-10.1 [facility] Serum or plasma creatinine m easurement (mass/volume)Ordered By: Jose Jaime on 02-21-2024 Creatinine [Mass/Vol] 2.08 mg/dL 0.55-1.02 [facility] Comment on above: The validity of the calculated GFR & GFRAA in patients over 70 years has not been determined. Clinical correlation is essential. Serum or plasma urea nitroge n measurement (mass/volume)Ordered By: Jose Jaime on 02-21-2024 Urea nitrogen [Mass/Vol] 31 mg/dL 7-18 [facility] Squamous epithelial cells de tection in urine sediment by light microscopyOrdered By: Jose Jaime on 02-21-2024 Epithelial cells.squamous LM Ql (Urine sed) 0-5 SEEN /hpf 5-10 [facility] Stool enteric pathogen panel by probe and target amplification methodOrdered By: Dannie Hoyos on 02-21-2024 Gastrointestinal pathogens panel ENRIQUE+probe (Stl) [facility] Thin prep Papanicolaou smear with manual screeningOrdered By: Jose Jaime on 02-21-2024 Thin prep Papanicolaou smear with manual screening 3.7 g/dL 3.2-5.0 [facility] Thin prep Papanicolaou smear with manual screening 35 U/L 15-37 [facility] Thin prep Papanicolaou smear with manual screening 13 5-15 [facility] Urine blood detectionOrdered By: Jose Jaime on 02-21-2024 RBC Ql (U) 10 /ul Negative [facility] Urine clarityOrdered By: Ava Jaime on 02-21-2024 Clarity (U) Clear Clear [facility] Urine color determinationOrd ered By: Jose Jaime on 02-21-2024 Color (U) Yellow Yellow [facility] Urine glucose detectionOrder ed By: Jose Jaime on 02-21-2024 Glucose Ql (U) 1000 mg/dl Normal [facility] Urine leukocyte esterase det ection by dipstickOrdered By: Jose Jaime on 02-21-2024 Leukocyte esterase Test strip Ql (U) 25 /ul Negative [facility] Urine pHOrdered By: Jose navarrete on 02-21-2024 pH (U) 5.0 [pH] 5.0 - 8.0 [facility] Urine sediment bacteria coun t by microscopy (number/high power field)Ordered By: Jose Jaime on 02-21-2024 Bacteria LM.HPF (Urine sed) [#/Area] 0 /[HPF] None Seen [facility] Urine specific gravity measu rementOrdered By: Jose Jaime on 02-21-2024 Specific gravity (U) [Rel density] 1.015 1.002-1.03 0 [facility] Urine urobilinogen measureme ntOrdered By: Jose Jaime on 02-21-2024 Urobilinogen Ql (U) 1 mg/dl Normal [facility] Absolute lymphocyte countOrd ered By: Breann East on 02-19-2024 Lymphocytes Auto (Unsp spec) [#/Vol] 2.61 10*3/uL 0.83-4.51 [facility] Automated lymphocyte count a s percentage of total leukocytesOrdered By: Breann East on 02-19-2024 Lymphocytes/100 WBC Auto (Unsp spec) 33.5 % 19-41 [facility] Basophil percentageOrdered B y: Breann East on 02-19-2024 Basophils/100 WBC (Bld) 0.5 % 0-1 [facility] Bilirubin [Mass/Vol] 0.30 mg/dL 0.20-1.00 [facility] Comment on above: For patients on eltr ombopag therapy, use of Dimension [place] TBIL is not recommended. Chloride [Moles/Vol] 107 mmol/L 98-107 [facility] Eosinophils/100 WBC (Bld) 1.8 % 0-5 [facility] Glucose [Mass/Vol] 133 mg/dL 74-106 [facility] Comment on above: Fasting Glucose resu lt greater than or equal to 126 mg/dL suggests DIABETES MELLITUS per A.D.A. criteria. Hemoglobin (Bld) [Mass/Vol] 11.9 g/dL 12.0-15.0 [facility] Monocytes/100 WBC (Bld) 7.3 % 0-10 [facility] Neutrophils (Bld) [#/Vol] 4.4 10*3/uL 2.0-7.7 [facility] Neutrophils/100 WBC (Bld) 56.6 % 47-70 [facility] Potassium [Moles/Vol] 4.6 mmol/L 3.5-5.1 [facility] Protein [Mass/Vol] 7.6 g/dL 6.4-8.2 [facility] Sodium [Moles/Vol] 139 mmol/L 136-145 [facility] WBC (Bld) [#/Vol] 7.8 10*3/uL 4.4-11.0 [facility] Basophil percentage 0 SEEN /hpf 0-5 [facility] Bilirubin Test strip Ql (U)O rdered By: Breann East on 02-19-2024 Bilirubin Ql (U) Negative Negative [facility] Determination of erythrocyte mean corpuscular volume (MCV)Ordered By: rBeann East on 02-19-2024 MCV (RBC) [Entitic vol] 93.8 fL 81-99 [facility] Erythrocyte distribution wid th ratioOrdered By: Breann East on 02-19-2024 Erythrocyte distribution width (RBC) [Ratio] 13.2 % 11.6-14.6 [facility] Erythrocyte distribution wid th standard deviationOrdered By: Breann East on 02-19-2024 Erythrocyte distribution width (RBC) [Entitic vol] 45.7 fL 35.1-43.9 [facility] Hematocrit Auto (Bld) [Volum e fraction]Ordered By: Breann East on 02-19-2024 Hematocrit (Bld) [Volume fraction] 36.6 % 37-47 [facility] Immature granulocytes/100 WB C Auto (Bld)Ordered By: Breann East on 02-19-2024 Immature granulocytes/100 WBC (Bld) 0.300 % 0.0-0.9 [facility] Comment on above: IG% - Immature Granu locytes (promyelocytes, myelocytes and metamyelocytes) > 1% indicates that a LEFT SHIFT is Present. Ketones Test strip Ql (U)Ord ered By: Breann East on 02-19-2024 Ketones Ql (U) Negative Negative [facility] Laboratory - Chemistry and C hemistry - challengeOrdered By: Breannsantiago East on 02-19-2024 Albumin/Globulin [Mass ratio] 0.9 {ratio} 0.9-2.4 [facility] ALP [Catalytic activity/Vol] 58 U/L 45-117 [facility] ALT [Catalytic activity/Vol] 20 U/L 13-56 [facility] CO2 [Moles/Vol] 29.0 mmol/L 21.0-32.0 [facility] Globulin (S) [Mass/Vol] 3.9 g/dL 2.2-4.2 [facility] Urea nitrogen/Creatinine [Mass ratio] 21.1 mg/mg 10-20 [facility] - Hematology and Cell countsOrdered By: Breann East on 02-19-2024 MCH (RBC) [Entitic mass] 30.5 pg 27.0-32.0 [facility] MCHC (RBC) [Mass/Vol] 32.5 g/dL 32-36 [facility] Nucleated RBC/100 WBC (Bld) [Ratio] 0 % 0-5 [facility] Platelet mean volume (Bld) [Entitic vol] 11.0 fL 6.2-12.0 [facility] Platelets (Bld) [#/Vol] 172 10*3/uL 150-450 [facility] Mucus LM Ql (Urine sed)Order ed By: Breann East on 02-19-2024 Mucus Ql (Urine sed) 0 SEEN /hpf [facility] Nitrite Test strip Ql (U)Ord ered By: Breann East on 02-19-2024 Nitrite Ql (U) Negative Negative [facility] No Panel InformationOrdered By: Breann East on 02-19-2024 Estimated Creatinine Clearance Calc 36.28 ml/min [facility] Estimated GFR (MDRD) Amer 51 mL/min >60 [facility] Comment on above: GFR Calc Estimated GFR (MDRD) Non-Af Amer 42 mL/min >60 [facility] Comment on above: Non- GFR Calc Urine RBC 0 SEEN /hpf 0-5 [facility] Protein Test strip Ql (U)Ord ered By: Breann East on 02-19-2024 Protein Ql (U) Negative Negative [facility] RBC Auto (Bld) [#/Vol]Ordere d By: Breann East on 02-19-2024 RBC (Bld) [#/Vol] 3.90 10*6/uL 4.2-5.4 [facility] Serum or plasma calcium loco urement (mass/volume)Ordered By: Breann East on 02-19-2024 Calcium [Mass/Vol] 9.3 mg/dL 8.5-10.1 [facility] Serum or plasma creatinine m easurement (mass/volume)Ordered By: Breann East on 02-19-2024 Creatinine [Mass/Vol] 1.33 mg/dL 0.55-1.02 [facility] Comment on above: The validity of the calculated GFR & GFRAA in patients over 70 years has not been determined. Clinical correlation is essential. Serum or plasma urea nitroge n measurement (mass/volume)Ordered By: Breann East on 02-19-2024 Urea nitrogen [Mass/Vol] 28 mg/dL 7-18 [facility] Squamous epithelial cells de tection in urine sediment by light microscopyOrdered By: Breann East on 02-19-2024 Epithelial cells.squamous LM Ql (Urine sed) 0 SEEN /hpf 5-10 [facility] Thin prep Papanicolaou smear with manual screeningOrdered By: Breann East on 02-19-2024 Thin prep Papanicolaou smear with manual screening 3.7 g/dL 3.2-5.0 [facility] Thin prep Papanicolaou smear with manual screening 23 U/L 15-37 [facility] Thin prep Papanicolaou smear with manual screening 3 5-15 [facility] Urine blood detectionOrdered By: Breann East on 02-19-2024 RBC Ql (U) Negative Negative [facility] Urine clarityOrdered By: Chaz East on 02-19-2024 Clarity (U) Clear Clear [facility] Urine color determinationOrd ered By: Breann East on 02-19-2024 Color (U) Yellow Yellow [facility] Urine glucose detectionOrder ed By: Breann East on 02-19-2024 Glucose Ql (U) 1000 mg/dl Normal [facility] Urine leukocyte esterase det ection by dipstickOrdered By: Breann East on 02-19-2024 Leukocyte esterase Test strip Ql (U) 25 /ul Negative [facility] Urine pHOrdered By: Niurka East on 02-19-2024 pH (U) 6.0 [pH] 5.0 - 8.0 [facility] Urine sediment bacteria coun t by microscopy (number/high power field)Ordered By: Breann East on 02-19-2024 Bacteria LM.HPF (Urine sed) [#/Area] 0 /[HPF] None Seen [facility] Urine specific gravity measu rementOrdered By: Breann East on 02-19-2024 Specific gravity (U) [Rel density] 1.015 1.002-1.03 0 [facility] Urine urobilinogen measureme ntOrdered By: Breann East on 02-19-2024 Urobilinogen Ql (U) Normal mg/dl Normal [facility] .Auto Diffon 02-14-2024 Basophil, Absolute 0.0 10 3/mcL Normal 0.0-0.2 [facility] ([place]) Comment on above: Performed By: #### L IPID, FERR, GFR, ANEU, CBC, TSH, CMP, ADIFF, A1C, VIDH #### [address] [address] Basophils/100 WBC (Bld) 0.5 % Normal 0.0-2.5 [facility] ([place]) Comment on above: Performed By: #### L IPID, FERR, GFR, ANEU, CBC, TSH, CMP, ADIFF, A1C, VIDH #### [address] [address] Eosinophil, Absolute 0.2 10 3/mcL Normal 0.0-0.4 [facility] ([place]) Comment on above: Performed By: #### L IPID, FERR, GFR, ANEU, CBC, TSH, CMP, ADIFF, A1C, VIDH #### [address] [address] Eosinophils/100 WBC (Bld) 2.5 % Normal 0.0-7.0 [facility] ([place]) Comment on above: Performed By: #### L IPID, FERR, GFR, ANEU, CBC, TSH, CMP, ADIFF, A1C, VIDH #### [address] [address] Lymphocyte, Absolute 2.4 10 3/mcL Normal 0.8-3.9 [facility] ([place]) Comment on above: Performed By: #### L IPID, FERR, GFR, ANEU, CBC, TSH, CMP, ADIFF, A1C, VIDH #### [address] [address] Lymphocytes/100 WBC (Bld) 30.7 % Normal 10.0-50.0 [facility] ([place]) Comment on above: Performed By: #### L IPID, FERR, GFR, ANEU, CBC, TSH, CMP, ADIFF, A1C, VIDH #### [address] [address] Monocyte, Absolute 0.5 10 3/mcL Normal 0.2-1.0 [facility] ([place]) Comment on above: Performed By: #### L IPID, FERR, GFR, ANEU, CBC, TSH, CMP, ADIFF, A1C, VIDH #### [place] [address] [place], [place] [address] Monocytes/100 WBC (Bld) 6.7 % Normal 1.7-13.0 [facility] ([place]) Comment on above: Performed By: #### L IPID, FERR, GFR, ANEU, CBC, TSH, CMP, ADIFF, A1C, VIDH #### [address] [place], [place] [address] Neutrophils/100 WBC (Bld) 59.6 % Normal 37.0-80.0 [facility] ([place]) Comment on above: Performed By: #### L IPID, FERR, GFR, ANEU, CBC, TSH, CMP, ADIFF, A1C, VIDH #### [address] [place], [place] [address] .GFRon 02-14-2024 GFR 51 ml/min/1.73sqm Normal [facility] ([place]) Comment on above: Result Comment: GFR [...] ANEU, CBC, TSH, CMP, ADIFF, A1C, VIDH ####[facility] [place], [place] [address] GFR Non- 42 ml/min/1.73sqm Normal [facility] ([place]) Comment on above: Result Comment: GFR [...] ANEU, CBC, TSH, CMP, ADIFF, A1C, VIDH ####[address] [address] .NEUABSon 02-14-2024 Neutrophil, Absolute 4.6 10 3/mcL Normal 2.9-6.2 [facility] ([place]) Comment on above: Performed By: #### L IPID, FERR, GFR, ANEU, CBC, TSH, CMP, ADIFF, A1C, VIDH #### [place] [address] A1Con 02-14-2024 HbA1c (Bld) [Mass fraction] 7.2 % High 4.3-6.4 [facility] ([place]) Comment on above: Performed By: #### L IPID, FERR, GFR, ANEU, CBC, TSH, CMP, ADIFF, A1C, VIDH #### [place] [address] CBCon 02-14-2024 Erythrocyte distribution width (RBC) [Ratio] 13.9 % Normal 11.5-14.5 [facility] ([place]) Comment on above: Performed By: #### L IPID, FERR, GFR, ANEU, CBC, TSH, CMP, ADIFF, A1C, VIDH #### [place] [address] Hematocrit (Bld) [Volume fraction] 34.7 % Low 37.0-47.0 [facility] ([place]) Comment on above: Performed By: #### L IPID, FERR, GFR, ANEU, CBC, TSH, CMP, ADIFF, A1C, VIDH #### [place] [id number] Hgb 11.9 G/dL Low 12.0-16.0 [facility] ([place]) Comment on above: Performed By: #### L IPID, FERR, GFR, ANEU, CBC, TSH, CMP, ADIFF, A1C, VIDH #### [address] [address] MCH (RBC) [Entitic mass] 30.8 pg Normal 27.0-31.2 [facility] ([place]) Comment on above: Performed By: #### L IPID, FERR, GFR, ANEU, CBC, TSH, CMP, ADIFF, A1C, VIDH #### [place] [address] MCHC 34.4 G/dL Normal 33.0-37.0 [facility] ([place]) Comment on above: Performed By: #### L IPID, FERR, GFR, ANEU, CBC, TSH, CMP, ADIFF, A1C, VIDH #### [address] [address] MCV (RBC) [Entitic vol] 89.7 fL Normal 80.0-94.0 [facility] ([place]) Comment on above: Performed By: #### L IPID, FERR, GFR, ANEU, CBC, TSH, CMP, ADIFF, A1C, VIDH #### [address] [address] Platelet 154 10 3/mcL Normal 130-400 [facility] ([place]) Comment on above: Performed By: #### L IPID, FERR, GFR, ANEU, CBC, TSH, CMP, ADIFF, A1C, VIDH #### [address] [address] Platelet mean volume (Bld) [Entitic vol] 9.1 fL Normal 7.4-10.4 [facility] ([place]) Comment on above: Performed By: #### L IPID, FERR, GFR, ANEU, CBC, TSH, CMP, ADIFF, A1C, VIDH #### [address] [address] RBC 3.87 10 6/mcL Low 4.20-5.40 [facility] ([place]) Comment on above: Performed By: #### L IPID, FERR, GFR, ANEU, CBC, TSH, CMP, ADIFF, A1C, VIDH #### [address] [place], [place] [address] WBC 7.8 10 3/mcL Normal 4.6-10.8 [facility] ([place]) Comment on above: Performed By: #### L IPID, FERR, GFR, ANEU, CBC, TSH, CMP, ADIFF, A1C, VIDH #### [address] [place], [place] [address] CMPon 02-14-2024 Albumin Level 3.7 G/dL Normal 3.4-4.8 [facility] ([place]) Comment on above: Performed By: #### L IPID, FERR, GFR, ANEU, CBC, TSH, CMP, ADIFF, A1C, VIDH ####[address] [place], [place] [address] Albumin/Globulin [Mass ratio] 1.1 {ratio} Normal 1.1-2.5 [facility] ([place]) Comment on above: Performed By: #### L IPID, FERR, GFR, ANEU, CBC, TSH, CMP, ADIFF, A1C, VIDH ####[address] [place], [place] [address] ALP [Catalytic activity/Vol] 61 U/L Normal 40-135 [facility] ([place]) Comment on above: Performed By: #### L IPID, FERR, GFR, ANEU, CBC, TSH, CMP, ADIFF, A1C, VIDH ####[address] [place], [place] [address] ALT [Catalytic activity/Vol] 21 U/L Normal 14-59 [facility] ([place]) Comment on above: Performed By: #### L IPID, FERR, GFR, ANEU, CBC, TSH, CMP, ADIFF, A1C, VIDH ####[address] [place], [place] [address] AST [Catalytic activity/Vol] 19 U/L Normal 10-40 [facility] ([place]) Comment on above: Performed By: #### L IPID, FERR, GFR, ANEU, CBC, TSH, CMP, ADIFF, A1C, VIDH ####[address] [place], [place] [address] Bili Total 0.3 mg/dL Normal 0.2-1.0 [facility] ([place]) Comment on above: Result Comment: Use of this assay is not recommended for patients undergoing treatment with eltrombopag due to the potential for falsely elevated results. Performed By: #### L IPID, FERR, GFR, ANEU, CBC, TSH, CMP, ADIFF, A1C, VIDH ####[address] [place], [place] [address] BUN/Creatinine Ratio 23 ratio Normal 7-27 [facility] ([place]) Comment on above: Performed By: #### L IPID, FERR, GFR, ANEU, CBC, TSH, CMP, ADIFF, A1C, VIDH ####[address] [place], [place] [address] Calcium [Mass/Vol] 9.1 mg/dL Normal 8.4-10.2 [facility] ([place]) Comment on above: Performed By: #### L IPID, FERR, GFR, ANEU, CBC, TSH, CMP, ADIFF, A1C, VIDH ####[address] [place], [place] [address] Chloride [Moles/Vol] 103 mmol/L Normal 98-107 [facility] ([place]) Comment on above: Performed By: #### L IPID, FERR, GFR, ANEU, CBC, TSH, CMP, ADIFF, A1C, VIDH ####[address] [place], [place] [address] CO2 [Moles/Vol] 29 mmol/L Normal 23-31 [facility] ([place]) Comment on above: Performed By: #### L IPID, FERR, GFR, ANEU, CBC, TSH, CMP, ADIFF, A1C, VIDH ####[address] [place], [place] [address] Creatinine [Mass/Vol] 1.26 mg/dL High 0.55-1.02 [facility] ([place]) Comment on above: Performed By: #### L IPID, FERR, GFR, ANEU, CBC, TSH, CMP, ADIFF, A1C, VIDH ####[address] [place], [place] [address] Electrolyte Balance 8.0 mEq/L Normal 4.0-15.0 [facility] ([place]) Comment on above: Performed By: #### L IPID, FERR, GFR, ANEU, CBC, TSH, CMP, ADIFF, A1C, VIDH ####[address] [place], [place] [address] Globulin 3.3 G/dL Normal [facility] ([place]) Comment on above: Performed By: #### L IPID, FERR, GFR, ANEU, CBC, TSH, CMP, ADIFF, A1C, VIDH ####[address] [place], [place] [address] Glucose [Mass/Vol] 126 mg/dL High 83-110 [facility] ([place]) Comment on above: Performed By: #### L IPID, FERR, GFR, ANEU, CBC, TSH, CMP, ADIFF, A1C, VIDH ####[address] [place], [place] [address] Potassium [Moles/Vol] 4.6 mmol/L Normal 3.5-5.1 [facility] ([place]) Comment on above: Performed By: #### L IPID, FERR, GFR, ANEU, CBC, TSH, CMP, ADIFF, A1C, VIDH ####[address] [place], [place] [address] Sodium [Moles/Vol] 140 mmol/L Normal 136-145 [facility] ([place]) Comment on above: Performed By: #### L IPID, FERR, GFR, ANEU, CBC, TSH, CMP, ADIFF, A1C, VIDH ####[address] [place], [place] [address] Total Protein 7.0 G/dL Normal 6.4-8.2 [facility] ([place]) Comment on above: Performed By: #### L IPID, FERR, GFR, ANEU, CBC, TSH, CMP, ADIFF, A1C, VIDH ####[address] [place], [place] [address] Urea nitrogen [Mass/Vol] 29 mg/dL High 7-18 [facility] ([place]) Comment on above: Performed By: #### L IPID, FERR, GFR, ANEU, CBC, TSH, CMP, ADIFF, A1C, VIDH ####[id number] [place], [place] [address] Joselyn 02-14-2024 Ferritin [Mass/Vol] 155.0 ng/mL Normal 8.0-252.0 [facility] ([place]) Comment on above: Performed By: #### L IPID, FERR, GFR, ANEU, CBC, TSH, CMP, ADIFF, A1C, VIDH #### [address] [place], [place] [address] LIPIDon 02-14-2024 Cholesterol [Mass/Vol] 124 mg/dL Normal 0-200 [facility] ([place]) Comment on above: Result Comment: Chol esterol Reference Interval: Less than 200 Desirable 200-239 Borderline high risk 240 and above High risk Performed By: #### L IPID, FERR, GFR, ANEU, CBC, TSH, CMP, ADIFF, A1C, VIDH ####[address] [place], [place] [address] Cholesterol in HDL [Mass/Vol] 38 mg/dL Low 40-60 [facility] ([place]) Comment on above: Performed By: #### L IPID, FERR, GFR, ANEU, CBC, TSH, CMP, ADIFF, A1C, VIDH ####[address] [place], [place] [address] Cholesterol in LDL [Mass/Vol] 37 mg/dL Normal 0-130 [facility] ([place]) Comment on above: Performed By: #### L IPID, FERR, GFR, ANEU, CBC, TSH, CMP, ADIFF, A1C, VIDH ####[address] [place], [place] [address] Triglyceride [Mass/Vol] 246 mg/dL High 0-150 [facility] ([place]) Comment on above: Result Comment: Trig lyceride Reference Interval: Less than 150 Normal 150-199 Borderline high risk 200-499 High risk 500 or higher Very high risk Performed By: #### L IPID, FERR, GFR, ANEU, CBC, TSH, CMP, ADIFF, A1C, VIDH ####[address] [place], [place] [address] TSHon 02-14-2024 TSH Qn 2.18 m[IU]/L Normal 0.36-3.74 [facility] ([place]) Comment on above: Performed By: #### L IPID, FERR, GFR, ANEU, CBC, TSH, CMP, ADIFF, A1C, VIDH #### [address] [place], [place] [address] VIDHon 02-14-2024 Vit. D 25-Hydroxy 55.4 ng/mL Normal [facility] ([place]) Comment on above: Result Comment: Inte rpretive Values Based on Total 25(OH) Vitamin D: Deficient <20 ng/mL Insufficient 20 - <30 ng/mL Sufficient 30-100 ng/mL Performed By: #### L IPID, FERR, GFR, ANEU, CBC, TSH, CMP, ADIFF, A1C, VIDH ####[address] [place], [place] [address] BD BONE DENSITY DEXA AXIAL S KELETONon 12-27-2023 BD BONE DENSITY DEXA AXIAL SKELETON [...] PM Ordering Provider: ADRIENNE Bassett [facility] ([place]) [place] MAMMOGRAM SCREENING BILAT ERAL W/TOMOon 12-27-2023 MA MAMMOGRAM SCREENING BILATERAL W/YOAV ORIGINAL FROM: [place] [address] PROCEDURE FOR: MANSI CARO [address] [place] [id number] Home: PID#: [id number] Exam#: [id number] : 1955 Age: 68 TO: ADRIENNE BYERS DO [address] [place] [address] Fax: NO FAX EXAMINATION: SCREENING DIGITAL BILATERAL [...] addition to annual mammographic screening per the [employer]. BIRADS: MAMMOGRAM BI-RADS: 1: Negative RECALL: 1 year screening RECALL TYPE: mammo LETTER SENT: Normal BI-RADS 1 and 2 Interpreted by: Lesley Levine Preliminary Report By: Lesley Levine Electronically signed By Lesley Levine Dictated Date: 12/27/2023 8:56:06 PM Prelim Date: 12/27/2023 8:59:32 PM Sign Date: 12/27/2023 8:59:32 PM Ordering Provider: ADIRENNE BYERS [employer]ug Machine Operator: CHARLEE BARCENAS RT(R)(M)(CT) letter sent: Normal BI-RADS 1 and 2 Mammogram BI-RADS: 1 Negative Normal [facility] ([place]) Thin prep Papanicolaou smear with manual screeningOrdered By: Uday Orosco on 12-08-2023 Thin prep Papanicolaou smear with manual screening 129 mg/dL 74-106 [facility] Comment on above: MANAGEMENT OF PATIEN T [...] [Mass/Vol] 123 mg/dL Normal 0-200 [facility] ([place]) Comment on above: Result Comment: Chol esterol Reference Interval: Less than 200 Desirable 200-239 Borderline high risk 240 and above High risk Performed By: #### C RE, GFR #### [address] [address] Cholesterol in HDL [Mass/Vol] 44 mg/dL Normal 40-60 [facility] ([place]) Comment on above: Performed By: #### C RE, GFR #### [address] [address] Cholesterol in LDL [Mass/Vol] 51 mg/dL Normal 0-130 [facility] ([place]) Comment on above: Performed By: #### C RE, GFR #### [address] [address] Triglyceride [Mass/Vol] 139 mg/dL Normal 0-150 [facility] ([place]) Comment on above: Result Comment: Trig lyceride Reference Interval: Less than 150 Normal 150-199 Borderline high risk 200-499 High risk 500 or higher Very high risk Performed By: #### C RE, GFR #### [address] [address] PBNPon 10-25-2023 Natriuretic peptide B (Bld) [Mass/Vol] 297 pg/mL High 0-125 [facility] ([place]) Comment on above: Result Comment: NT-p roBNP results of less than 300 pg/mL effectively rules out acute congestive heart failure with 99% negative predictive value. Performed By: #### L IPID, AUGUSTO ####[address] [place], [place] [address] Glucose Glucometer (BldC) [M ass/Vol]Ordered By: Camacho Aguilar on 10-12-2023 Glucose [Mass/Vol] 207 mg/dL 74-106 [facility] Comment on above: MANAGEMENT OF PATIEN T CARE PER NURSING PROTOCOL Absolute lymphocyte countOrd ered By: Tony Mayer on 10-11-2023 Lymphocytes Auto (Unsp spec) [#/Vol] 2.84 10*3/uL 0.83-4.51 [facility] Basophil percentageOrdered B y: Tony Mayer on 10-11-2023 Basophil percentage 3.6 mg/dL 2.5-4.9 [facility] Basophils/100 WBC (Bld) 0.8 % 0-1 [facility] Chloride [Moles/Vol] 111 mmol/L 98-107 [facility] Eosinophils/100 WBC (Bld) 2.5 % 0-5 [facility] Glucose [Mass/Vol] 123 mg/dL 74-106 [facility] Comment on above: Fasting Glucose resu lt from 100 to 125 mg/dL suggests IMPAIRED HOMEOSTASIS per A.D.A. criteria. Neutrophils (Bld) [#/Vol] 1.7 10*3/uL 2.0-7.7 [facility] Neutrophils/100 WBC (Bld) 33.5 % 47-70 [facility] Potassium [Moles/Vol] 4.0 mmol/L 3.5-5.1 [facility] Sodium [Moles/Vol] 142 mmol/L 136-145 [facility] WBC (Bld) [#/Vol] 5.2 10*3/uL 4.4-11.0 [facility] Blood erythrocytes count (nu mber/volume)Ordered By: Tony Mayer on 10-11-2023 RBC (Bld) [#/Vol] 3.75 10*6/uL 4.2-5.4 [facility] Blood hemoglobin measurement (mass/volume)Ordered By: Tony Mayer on 10-11-2023 Hemoglobin (Bld) [Mass/Vol] 11.5 g/dL 12.0-15.0 [facility] Blood lymphocytes/100 leukoc ytesOrdered By: Tony Mayer on 10-11-2023 Lymphocytes/100 WBC (Bld) 54.9 % 19-41 [facility] Blood monocytes/100 leukocyt esOrdered By: Tony Mayer on 10-11-2023 Monocytes/100 WBC (Bld) 8.3 % 0-10 [facility] Blood platelet mean volumeOr dered By: Tony Mayer on 10-11-2023 Platelet mean volume (Bld) [Entitic vol] 10.8 fL 6.2-12.0 [facility] Determination of erythrocyte mean corpuscular volume (MCV)Ordered By: Tony Mayer on 10-11-2023 MCV (RBC) [Entitic vol] 96.0 fL 81-99 [facility] Hematocrit Auto (Bld) [Volum e fraction]Ordered By: Tony Mayer on 10-11-2023 Hematocrit (Bld) [Volume fraction] 36.0 % 37-47 [facility] Laboratory - Chemistry and C hemistry - challengeOrdered By: Tony Mayer on 10-11-2023 CO2 [Moles/Vol] 25.0 mmol/L 21.0-32.0 [facility] Magnesium [Mass/Vol] 2.2 mg/dL 1.6-2.6 [facility] Urea nitrogen/Creatinine [Mass ratio] 27.2 mg/mg 10-20 [facility] - Hematology and Cell countsOrdered By: Tony Mayer on 10-11-2023 Erythrocyte distribution width (RBC) [Entitic vol] 48.7 fL 35.1-43.9 [facility] Erythrocyte distribution width (RBC) [Ratio] 13.7 % 11.6-14.6 [facility] Immature granulocytes/100 WBC (Bld) 0.000 % 0.0-0.9 [facility] Comment on above: IG% - Immature Granu locytes (promyelocytes, myelocytes and metamyelocytes) > 1% indicates that a LEFT SHIFT is Present. MCH (RBC) [Entitic mass] 30.7 pg 27.0-32.0 [facility] Nucleated RBC/100 WBC (Bld) [Ratio] 0 % 0-5 [facility] [Mass/Vol]Or dered By: Tony Mayer on 10-11-2023 MCHC (RBC) [Mass/Vol] 31.9 g/dL 32-36 [facility] No Panel InformationOrdered By: Tony Mayer on 10-11-2023 Estimated Creatinine Clearance Calc 56.77 ml/min [facility] Estimated GFR (MDRD) Amer 78 mL/min >60 [facility] Comment on above: GFR Calc Estimated GFR (MDRD) Non-Af Amer 64 mL/min >60 [facility] Comment on above: Non- GFR Calc Platelets bldOrdered By: Jesu Mayer on 10-11-2023 Platelets (Bld) [#/Vol] 144 10*3/uL 150-450 [facility] Serum or plasma calcium loco urement (mass/volume)Ordered By: Tony Mayer on 10-11-2023 Calcium [Mass/Vol] 8.7 mg/dL 8.5-10.1 [facility] Serum or plasma creatinine m easurement (mass/volume)Ordered By: Tony Mayer on 10-11-2023 Creatinine [Mass/Vol] 0.92 mg/dL 0.55-1.02 [facility] Comment on above: The validity of the calculated GFR & GFRAA in patients over 70 years has not been determined. Clinical correlation is essential. Serum or plasma urea nitroge n measurement (mass/volume)Ordered By: Tony Mayer on 10-11-2023 Urea nitrogen [Mass/Vol] 25 mg/dL - [facility] Thin prep Papanicolaou smear with manual screeningOrdered By: Tony Mayer on 10-11-2023 Thin prep Papanicolaou smear with manual screening 6 5-15 [facility] Basophil percentageOrdered B y: Jaci White on 10-08-2023 Bilirubin [Mass/Vol] 0.30 mg/dL 0.20-1.00 [facility] Comment on above: For patients on eltr ombopag therapy, use of Dimension [place] TBIL is not recommended. Protein [Mass/Vol] 6.5 g/dL 6.4-8.2 [facility] Laboratory - Chemistry and C hemistry - challengeOrdered By: [facility] Fannie on 10-08-2023 ALP [Catalytic activity/Vol] 48 U/L 45-117 [facility] ALT [Catalytic activity/Vol] 17 U/L 13-56 [facility] Globulin (S) [Mass/Vol] 3.2 g/dL 2.2-4.2 [facility] Serum or plasma albumin loco urement (mass/volume)Ordered By: [facility] Fannie on 10-08-2023 Albumin [Mass/Vol] 3.3 g/dL 3.2-5.0 [facility] Serum or plasma albumin/glob ulin mass ratioOrdered By: [facility] Fannie on 10-08-2023 Albumin/Globulin [Mass ratio] 1.0 {ratio} 0.9-2.4 [facility] Thin prep Papanicolaou smear with manual screeningOrdered By: [facility] Fannie on 10-08-2023 Thin prep Papanicolaou smear with manual screening 18 U/L 15-37 [facility] Whole blood hemoglobin A1c/t otal hemoglobin ratio (mass fraction)Ordered By: Jaci Fannie on 10-08-2023 HbA1c (Bld) [Mass fraction] 6.8 % 3.8-5.6 [facility] Comment on above: Normal < 5.7 % Predi abetic 5.7 - 6.4 % Diabetic >or= 6.5 % Please note range changes. Absolute lymphocyte countOrd ered By: David Best on 10-07-2023 Lymphocytes Auto (Unsp spec) [#/Vol] 3.02 10*3/uL 0.83-4.51 [facility] Basophil percentageOrdered B y: David Best on 10-07-2023 Basophils/100 WBC (Bld) 0.6 % 0-1 [facility] Chloride [Moles/Vol] 108 mmol/L 98-107 [facility] Eosinophils/100 WBC (Bld) 0.9 % 0-5 [facility] Glucose [Mass/Vol] 137 mg/dL 74-106 [facility] Comment on above: Fasting Glucose resu lt greater than or equal to 126 mg/dL suggests DIABETES MELLITUS per A.D.A. criteria. Neutrophils (Bld) [#/Vol] 2.7 10*3/uL 2.0-7.7 [facility] Neutrophils/100 WBC (Bld) 41.7 % 47-70 [facility] Potassium [Moles/Vol] 4.4 mmol/L 3.5-5.1 [facility] Sodium [Moles/Vol] 140 mmol/L 136-145 [facility] WBC (Bld) [#/Vol] 6.4 10*3/uL 4.4-11.0 [facility] Blood erythrocytes count (nu mber/volume)Ordered By: David Best on 10-07-2023 RBC (Bld) [#/Vol] 3.91 10*6/uL 4.2-5.4 [facility] Blood hemoglobin measurement (mass/volume)Ordered By: David Best on 10-07-2023 Hemoglobin (Bld) [Mass/Vol] 12.0 g/dL 12.0-15.0 [facility] Blood lymphocytes/100 leukoc ytesOrdered By: David Best on 10-07-2023 Lymphocytes/100 WBC (Bld) 47.6 % 19-41 [facility] Blood monocytes/100 leukocyt esOrdered By: David Best on 10-07-2023 Monocytes/100 WBC (Bld) 9.0 % 0-10 [facility] Blood platelet mean volumeOr dered By: David Best on 10-07-2023 Platelet mean volume (Bld) [Entitic vol] 11.7 fL 6.2-12.0 [facility] Determination of erythrocyte mean corpuscular volume (MCV)Ordered By: David Best on 10-07-2023 MCV (RBC) [Entitic vol] 96.7 fL 81-99 [facility] Glucose Glucometer (dC) [M ass/Vol]Ordered By: Alonso Marte on 10-07-2023 Glucose [Mass/Vol] 126 mg/dL 74-106 [facility] Comment on above: MANAGEMENT OF PATIEN T CARE PER NURSING PROTOCOL Hematocrit Auto (Bld) [Volum e fraction]Ordered By: David Best on 10-07-2023 Hematocrit (Bld) [Volume fraction] 37.8 % 37-47 [facility] INR in Blood by Coagulation assayOrdered By: David Best on 10-07-2023 INR Coag (Bld) [Relative time] 1.0 {INR} [facility] Laboratory - Chemistry and C hemistry - challengeOrdered By: David Best on 10-07-2023 CO2 [Moles/Vol] 26.0 mmol/L 21.0-32.0 [facility] Urea nitrogen/Creatinine [Mass ratio] 23.1 mg/mg 10-20 [facility] Laboratory - Chemistry and C hemistry - challengeOrdered By: Jaci White on 10-07-2023 Magnesium [Mass/Vol] 2.5 mg/dL 1.6-2.6 [facility] Laboratory - CoagulationOrde red By: David Best on 10-07-2023 aPTT Coag (Bld) [Time] 28.7 s 24.1-36.2 [facility] PT Coag (PPP) [Time] 12.9 s 11.7-14.9 [facility] Laboratory - Hematology and Cell countsOrdered By: David Best on 10-07-2023 Erythrocyte distribution width (RBC) [Entitic vol] 48.8 fL 35.1-43.9 [facility] Erythrocyte distribution width (RBC) [Ratio] 13.6 % 11.6-14.6 [facility] Immature granulocytes/100 WBC (Bld) 0.200 % 0.0-0.9 [facility] Comment on above: IG% - Immature Granu locytes (promyelocytes, myelocytes and metamyelocytes) > 1% indicates that a LEFT SHIFT is Present. MCH (RBC) [Entitic mass] 30.7 pg 27.0-32.0 [facility] Nucleated RBC/100 WBC (Bld) [Ratio] 0 % 0-5 [facility] MCHC Auto (RBC) [Mass/Vol]Or dered By: David Best on 10-07-2023 MCHC (RBC) [Mass/Vol] 31.7 g/dL 32-36 [facility] No Panel InformationOrdered By: David Best on 10-07-2023 Estimated Creatinine Clearance Calc 44.64 ml/min [facility] Estimated GFR (MDRD) Amer 59 mL/min >60 [facility] Comment on above: GFR Calc Estimated GFR (MDRD) Non-Af Amer 49 mL/min >60 [facility] Comment on above: Non- GFR Calc Troponin I High Sensitivity 8 pg/mL 3.0-54.0 [facility] Comment on above: Please Note: New Nasrin t Units and Gender Specific Reference Ranges. For more information see Policy Stat Procedure [place] High Sensitivity Troponin (TNIH) and attachments. Platelets bldOrdered By: Jefferson Best on 10-07-2023 Platelets (Bld) [#/Vol] 153 10*3/uL 150-450 [facility] Serum or plasma calcium loco urement (mass/volume)Ordered By: David Best on 10-07-2023 Calcium [Mass/Vol] 9.2 mg/dL 8.5-10.1 [facility] Serum or plasma creatinine m easurement (mass/volume)Ordered By: David Best on 10-07-2023 Creatinine [Mass/Vol] 1.17 mg/dL 0.55-1.02 [facility] Comment on above: The validity of the calculated GFR & GFRAA in patients over 70 years has not been determined. Clinical correlation is essential. Serum or plasma urea nitroge n measurement (mass/volume)Ordered By: David Best on 10-07-2023 Urea nitrogen [Mass/Vol] 27 mg/dL 7-18 [facility] Thin prep Papanicolaou smear with manual screeningOrdered By: David Best on 10-07-2023 Thin prep Papanicolaou smear with manual screening 6 5-15 [facility] Absolute lymphocyte countOrd ered By: Alonso Marte on 10-02-2023 Lymphocytes Auto (Unsp spec) [#/Vol] 2.34 10*3/uL 0.83-4.51 [facility] Basophil percentageOrdered B y: Alonso Marte on 10-02-2023 Basophils/100 WBC (Bld) 0.7 % 0-1 [facility] Chloride [Moles/Vol] 110 mmol/L 98-107 [facility] Eosinophils/100 WBC (Bld) 2.1 % 0-5 [facility] Glucose [Mass/Vol] 154 mg/dL 74-106 [facility] Comment on above: Fasting Glucose resu lt greater than or equal to 126 mg/dL suggests DIABETES MELLITUS per A.D.A. criteria. Neutrophils (Bld) [#/Vol] 2.4 10*3/uL 2.0-7.7 [facility] Neutrophils/100 WBC (Bld) 45.6 % 47-70 [facility] Potassium [Moles/Vol] 3.7 mmol/L 3.5-5.1 [facility] Sodium [Moles/Vol] 140 mmol/L 136-145 [facility] WBC (Bld) [#/Vol] 5.4 10*3/uL 4.4-11.0 [facility] Blood erythrocytes count (nu mber/volume)Ordered By: Alonso Marte on 10-02-2023 RBC (Bld) [#/Vol] 3.88 10*6/uL 4.2-5.4 [facility] Blood hemoglobin measurement (mass/volume)Ordered By: Alonso Marte on 10-02-2023 Hemoglobin (Bld) [Mass/Vol] 11.8 g/dL 12.0-15.0 [facility] Blood lymphocytes/100 leukoc ytesOrdered By: Alonso Marte on 10-02-2023 Lymphocytes/100 WBC (Bld) 43.7 % 19-41 [facility] Blood monocytes/100 leukocyt esOrdered By: Alonso Marte on 10-02-2023 Monocytes/100 WBC (Bld) 7.7 % 0-10 [facility] Blood platelet mean volumeOr dered By: Alonso Marte on 10-02-2023 Platelet mean volume (Bld) [Entitic vol] 11.4 fL 6.2-12.0 [facility] Determination of erythrocyte mean corpuscular volume (MCV)Ordered By: Alonso Marte on 10-02-2023 MCV (RBC) [Entitic vol] 96.6 fL 81-99 [facility] Hematocrit Auto (Bld) [Volum e fraction]Ordered By: Alonso Marte on 10-02-2023 Hematocrit (Bld) [Volume fraction] 37.5 % 37-47 [facility] Laboratory - Chemistry and C hemistry - challengeOrdered By: Alonso Marte on 10-02-2023 CO2 [Moles/Vol] 28.0 mmol/L 21.0-32.0 [facility] Urea nitrogen/Creatinine [Mass ratio] 17.6 mg/mg 10-20 [facility] Laboratory - Hematology and Cell countsOrdered By: Alonso Marte on 10-02-2023 Erythrocyte distribution width (RBC) [Entitic vol] 47.2 fL 35.1-43.9 [facility] Erythrocyte distribution width (RBC) [Ratio] 13.3 % 11.6-14.6 [facility] Immature granulocytes/100 WBC (Bld) 0.200 % 0.0-0.9 [facility] Comment on above: IG% - Immature Granu locytes (promyelocytes, myelocytes and metamyelocytes) > 1% indicates that a LEFT SHIFT is Present. MCH (RBC) [Entitic mass] 30.4 pg 27.0-32.0 [facility] Nucleated RBC/100 WBC (Bld) [Ratio] 0 % 0-5 [facility] MCHC Auto (RBC) [Mass/Vol]Or dered By: Alonso Marte on 10-02-2023 MCHC (RBC) [Mass/Vol] 31.5 g/dL 32-36 [facility] No Panel InformationOrdered By: Alonso Marte on 10-02-2023 Estimated Creatinine Clearance Calc 52.60 ml/min [facility] Estimated GFR (MDRD) Amer 73 mL/min >60 [facility] Comment on above: GFR Calc Estimated GFR (MDRD) Non-Af Amer 61 mL/min >60 [facility] Comment on above: Non- GFR Calc Platelets bldOrdered By: Alonso Marte on 10-02-2023 Platelets (Bld) [#/Vol] 136 10*3/uL 150-450 [facility] Serum or plasma calcium loco urement (mass/volume)Ordered By: Alonso Marte on 10-02-2023 Calcium [Mass/Vol] 9.0 mg/dL 8.5-10.1 [facility] Serum or plasma creatinine m easurement (mass/volume)Ordered By: Alonso Marte on 10-02-2023 Creatinine [Mass/Vol] 0.96 mg/dL 0.55-1.02 [facility] Comment on above: The validity of the calculated GFR & GFRAA in patients over 70 years has not been determined. Clinical correlation is essential. Serum or plasma urea nitroge n measurement (mass/volume)Ordered By: Alonso Marte on 10-02-2023 Urea nitrogen [Mass/Vol] 17 mg/dL 7-18 [facility] Thin prep Papanicolaou smear with manual screeningOrdered By: Alonso Marte on 10-02-2023 Thin prep Papanicolaou smear with manual screening 2 5-15 [facility] Glucose Glucometer (BldC) [M ass/Vol]Ordered By: Ben Johnson on 10-01-2023 Glucose [Mass/Vol] 182 mg/dL 74-106 [facility] Comment on above: MANAGEMENT OF PATIEN T CARE PER NURSING PROTOCOL Basophil percentageOrdered B y: Tony Mejia on 09-29-2023 Cholesterol [Mass/Vol] 106 mg/dL <200 [facility] Comment on above: <200 mg/dL Desirable 200-240 mg/dL Borderline >240 mg/dL High Risk Triglyceride [Mass/Vol] 145 mg/dL <199 [facility] Comment on above: The drugs N-Acetylcy steine and Metamizole may falsely depress this assay.Serum Triglycerides Reference Interval Normal <150 mg/dL Borderline high 150 - 199 mg/dL High 200 - 499 mg/dL Very High > or = 500 mg/dL Serum or plasma cholesterol in HDL measurement (mass/volume)Ordered By: Tony Mejia on 09-29-2023 Cholesterol in HDL [Mass/Vol] 41 mg/dL >40 [facility] Comment on above: The drugs N-Acetylcy steine and Metamizole may falsely depress this assay. Reference Range HDL <40 mg/dL Low HDL Cholesterol HDL >or= 60 mg/dL High HDL Cholesterol Serum or plasma cholesterol in VLDL measurement (mass/volume)Ordered By: Tony Mejia on 09-29-2023 Cholesterol in VLDL [Mass/Vol] 29 mg/dL 5-40 [facility] Serum or plasma low density lipoprotein (LDL) cholesterol measurement (mass/volume)Ordered By: Tony Mejia on 09-29-2023 Cholesterol in LDL [Mass/Vol] 36 mg/dL 0-130 [facility] Absolute lymphocyte countOrd ered By: Uday Orosco on 09-28-2023 Lymphocytes Auto (Unsp spec) [#/Vol] 3.61 10*3/uL 0.83-4.51 [facility] Basophil percentageOrdered B y: Uday Orosco on 09-28-2023 Basophil percentage 0 SEEN /hpf 0-5 [facility] Basophils/100 WBC (Bld) 0.6 % 0-1 [facility] Chloride [Moles/Vol] 106 mmol/L 98-107 [facility] Eosinophils/100 WBC (Bld) 1.0 % 0-5 [facility] Glucose [Mass/Vol] 159 mg/dL 74-106 [facility] Comment on above: Fasting Glucose resu lt greater than or equal to 126 mg/dL suggests DIABETES MELLITUS per A.D.A. criteria. Neutrophils (Bld) [#/Vol] 3.0 10*3/uL 2.0-7.7 [facility] Neutrophils/100 WBC (Bld) 40.8 % 47-70 [facility] Potassium [Moles/Vol] 3.9 mmol/L 3.5-5.1 [facility] Sodium [Moles/Vol] 140 mmol/L 136-145 [facility] WBC (Bld) [#/Vol] 7.3 10*3/uL 4.4-11.0 [facility] Bilirubin Test strip Ql (U)O rdered By: Uday Orosco on 09-28-2023 Bilirubin Ql (U) Negative Negative [facility] Blood erythrocytes count (nu mber/volume)Ordered By: Uday Orosco on 09-28-2023 RBC (Bld) [#/Vol] 4.14 10*6/uL 4.2-5.4 [facility] Blood hemoglobin measurement (mass/volume)Ordered By: Uday Orosco on 09-28-2023 Hemoglobin (Bld) [Mass/Vol] 12.5 g/dL 12.0-15.0 [facility] Blood lymphocytes/100 leukoc ytesOrdered By: Uday Orosco on 09-28-2023 Lymphocytes/100 WBC (Bld) 49.7 % 19-41 [facility] Blood monocytes/100 leukocyt esOrdered By: Uday Orosco on 09-28-2023 Monocytes/100 WBC (Bld) 7.6 % 0-10 [facility] Blood platelet mean volumeOr dered By: Uday Orosco on 09-28-2023 Platelet mean volume (Bld) [Entitic vol] 11.1 fL 6.2-12.0 [facility] Determination of erythrocyte mean corpuscular volume (MCV)Ordered By: Uday Orosco on 09-28-2023 MCV (RBC) [Entitic vol] 95.7 fL 81-99 [facility] Hematocrit Auto (Bld) [Volum e fraction]Ordered By: Uday Orosco on 09-28-2023 Hematocrit (Bld) [Volume fraction] 39.6 % 37-47 [facility] INR in Blood by Coagulation assayOrdered By: Uday Orosco on 09-28-2023 INR Coag (Bld) [Relative time] 1.0 {INR} [facility] Ketones Test strip Ql (U)Ord ered By: Uday Orosco on 09-28-2023 Ketones Ql (U) Negative Negative [facility] Laboratory - Chemistry and C hemistry - challengeOrdered By: Uday Orosco on 09-28-2023 CO2 [Moles/Vol] 28.0 mmol/L 21.0-32.0 [facility] Urea nitrogen/Creatinine [Mass ratio] 24.5 mg/mg 10-20 [facility] Laboratory - CoagulationOrde red By: Uday Orosco on 09-28-2023 aPTT Coag (Bld) [Time] 24.8 s 24.1-36.2 [facility] PT Coag (PPP) [Time] 12.7 s 11.7-14.9 [facility] - Hematology and Cell countsOrdered By: Uday Orosco on 09-28-2023 Erythrocyte distribution width (RBC) [Entitic vol] 47.4 fL 35.1-43.9 [facility] Erythrocyte distribution width (RBC) [Ratio] 13.3 % 11.6-14.6 [facility] Immature granulocytes/100 WBC (Bld) 0.300 % 0.0-0.9 [facility] Comment on above: IG% - Immature Granu locytes (promyelocytes, myelocytes and metamyelocytes) > 1% indicates that a LEFT SHIFT is Present. MCH (RBC) [Entitic mass] 30.2 pg 27.0-32.0 [facility] Nucleated RBC/100 WBC (Bld) [Ratio] 0 % 0-5 [facility] MCHC Auto (RBC) [Mass/Vol]Or dered By: Uday Orosco on 09-28-2023 MCHC (RBC) [Mass/Vol] 31.6 g/dL 32-36 [facility] Mucus LM Ql (Urine sed)Order ed By: Uday Orosco on 09-28-2023 Mucus Ql (Urine sed) 0 SEEN /hpf [facility] Nitrite Test strip Ql (U)Ord ered By: Uday Orosco on 09-28-2023 Nitrite Ql (U) Negative Negative [facility] No Panel InformationOrdered By: Uday Orosco on 09-28-2023 Estimated Creatinine Clearance Calc 46.28 ml/min [facility] Estimated GFR (MDRD) Amer 63 mL/min >60 [facility] Comment on above: GFR Calc Estimated GFR (MDRD) Non-Af Amer 52 mL/min >60 [facility] Comment on above: Non- GFR Calc Troponin I High Sensitivity 7 pg/mL 3.0-54.0 [facility] Comment on above: Please Note: New Nasrin t Units and Gender Specific Reference Ranges. For more information see Policy Stat Procedure [place] High Sensitivity Troponin (TNIH) and attachments. No Panel InformationOrdered By: Tony Mejia on 09-28-2023 Thyroid Stimulating Hormone (TSH) 2.94 uIU/mL 0.358-3.74 [facility] Platelets bldOrdered By: Cahd Orosco on 09-28-2023 Platelets (Bld) [#/Vol] 157 10*3/uL 150-450 [facility] Protein Test strip Ql (U)Ord ered By: Uday Orosco on 09-28-2023 Protein Ql (U) Negative Negative [facility] Serum or plasma calcium loco urement (mass/volume)Ordered By: Uday Orosco on 09-28-2023 Calcium [Mass/Vol] 9.7 mg/dL 8.5-10.1 [facility] Serum or plasma creatinine m easurement (mass/volume)Ordered By: Uday Orosco on 09-28-2023 Creatinine [Mass/Vol] 1.10 mg/dL 0.55-1.02 [facility] Comment on above: The validity of the calculated GFR & GFRAA in patients over 70 years has not been determined. Clinical correlation is essential. Serum or plasma urea nitroge n measurement (mass/volume)Ordered By: Uday Orosco on 09-28-2023 Urea nitrogen [Mass/Vol] 27 mg/dL 7-18 [facility] Squamous epithelial cells de tection in urine sediment by light microscopyOrdered By: Uday Orosco on 09-28-2023 Epithelial cells.squamous LM Ql (Urine sed) 0 SEEN /hpf 5-10 [facility] Thin prep Papanicolaou smear with manual screeningOrdered By: Uday Orosco on 09-28-2023 Thin prep Papanicolaou smear with manual screening 6 5-15 [facility] Urine blood detectionOrdered By: Uday Orosco on 09-28-2023 RBC Ql (U) Negative Negative [facility] RBC Ql (U) 0 SEEN /hpf 0-5 [facility] Urine clarityOrdered By: Chad Orosco on 09-28-2023 Clarity (U) Clear Clear [facility] Urine color determinationOrd ered By: Uday Orosco on 09-28-2023 Color (U) Yellow Yellow [facility] Urine glucose detectionOrder ed By: Uday Orosco on 09-28-2023 Glucose Ql (U) 1000 mg/dl Normal [facility] Urine leukocyte esterase det ection by dipstickOrdered By: Uday Orosco on 09-28-2023 Leukocyte esterase Test strip Ql (U) 25 /ul Negative [facility] Urine pHOrdered By: Uday cai on 09-28-2023 pH (U) 8.0 [pH] 5.0 - 8.0 [facility] Urine sediment bacteria coun t by microscopy (number/high power field)Ordered By: Uday Orosco on 09-28-2023 Bacteria LM.HPF (Urine sed) [#/Area] 0 /[HPF] None Seen [facility] Urine specific gravity measu rementOrdered By: Uday Orosco on 09-28-2023 Specific gravity (U) [Rel density] 1.010 1.002-1.03 0 [facility] Urobilinogen Auto test strip Ql (U)Ordered By: Uday Orosco on 09-28-2023 Urobilinogen Ql (U) Normal mg/dl Normal [facility] .GFRon 09-07-2023 GFR 47 ml/min/1.73sqm Normal [facility] ([place]) Comment on above: Result Comment: GFR Population [...] By: #### Reginaldo SKELTON, CRE ####[address] [place], [place] [address] GFR Non- 39 ml/min/1.73sqm Normal [facility] ([place]) Comment on above: Result Comment: GFR Population [...] Performed By: #### Reginaldo SKELTON, CRE ####[id number] [place], [place] [address] CREon 09-07-2023 Creatinine [Mass/Vol] 1.35 mg/dL High 0.55-1.02 [facility] ([place]) Comment on above: Performed By: #### Reginaldo SKELTON, CRE ####[address] [place], [place] [address] CT ABD/PELVIS W/ IV CONTRAST ONLYon 09-07-2023 [...] 09/07/2023 10:17:27 AM Ordering Provider: ADRIENNE BYERS [facility] ([place]) LABORATORYOrdered By: SYSTEM SYSTEM on 09-07-2023 Creatinine [...] Sign Date: 09/01/2023 8:23:28 AM Ordering Provider: ADIRENNE Bassett [facility] ([place]) ANCAdevon 07-19-2023 C-ANCA 1.1 Normal 0.0-20.0 [facility] ([place]) Comment on above: Result Comment: NEW REFERENCE RANGES FOR ANCA BY EIA: NEGATIVE <= 20 UNITS WEAK POSITIVE 21 - 30 UNITS MOD. TO STRONG POSITIVE > 30 UNITS A positive result indicates the presence of NE-3 antibodies and suggests the possibility of certain autoimmune vasculitides such as Naida?s granulomatosis. A negative result indicates no NE-3 antibody or levels below the negative cut-off of the assay. These results were obtained with the [employer] QUANTA Lite NE-3 IgG EDNA. NE-3 values obtained with different manufacturers? assay methods may not be used interchangeably. The magnitude of the reported IgG level cannot be correlated to an endpoint titer. Results of this assay should be used in conjunction with clinical findings. Performed By: #### L IPID, FERR, GFR, ANEU, CBC, TSH, CMP, ADIFF, A1C, VIDH #### [address] [address] Cytoplasmic Neutro. Ab. See Below Normal [facility] ([place]) Comment on above: Performed By: #### L IPID, FERR, GFR, ANEU, CBC, TSH, CMP, ADIFF, A1C, VIDH #### [address] [address] P-ANCA 10.8 Normal 0.0-20.0 [facility] ([place]) Comment on above: Result Comment: REFE RENCE [...] assay. These results were obtained with the [employer] QUANTA Lite MPO IgG EDNA. MPO values obtained with different manufacturers? assay methods may not be used interchangeably. The magnitude of the reported IgG level cannot be correlated to an endpoint titer. Results of this assay should be used in conjunction with clinical findings. Performed By: #### L IPID, FERR, GFR, ANEU, CBC, TSH, CMP, ADIFF, A1C, VIDH #### [address] [address] RFon 07-15-2023 Rheumatoid Factor <6.0 Normal <=5.9 [facility] ([place]) Comment on above: Result Comment: RF I [...] tests. These results were obtained with the [employer] QUANTA Lite RF IgM EDNA. RF IgM values obtained with different manufacturers' assay methods may not be used interchangeably. The magnitude of the reported IgM levels cannot be correlated to an endpoint titer. Performed By: #### C RE, GFR #### [address] [address] ANAon 07-14-2023 Nuclear Ab IF (S) [Titer] 40 {titer} Normal Neg 40 [facility] ([place]) Comment on above: Result Comment: AZALEA Screen and Titer methodology is an immunofluorescent technique utilizing Hep2 Substrate. Performed By: #### C RE, GFR #### [address] [address] .Auto Diffon 07-13-2023 Basophil, Absolute 0.0 10 3/mcL Normal 0.0-0.2 [facility] ([place]) Comment on above: Performed By: #### C RE, GFR #### [address] [address] Basophils/100 WBC (Bld) 0.3 % Normal 0.0-2.5 [facility] ([place]) Comment on above: Performed By: #### C RE, GFR #### [address] [address] Eosinophil, Absolute 0.1 10 3/mcL Normal 0.0-0.4 [facility] ([place]) Comment on above: Performed By: #### C RE, GFR #### [address] [address] Eosinophils/100 WBC (Bld) 1.1 % Normal 0.0-7.0 [facility] ([place]) Comment on above: Performed By: #### C RE, GFR #### [address] [address] Lymphocyte, Absolute 2.2 10 3/mcL Normal 0.8-3.9 [facility] ([place]) Comment on above: Performed By: #### C RE, GFR #### [address] [address] Lymphocytes/100 WBC (Bld) 28.8 % Normal 10.0-50.0 [facility] ([place]) Comment on above: Performed By: #### C RE, GFR #### [address] [address] Monocyte, Absolute 0.5 10 3/mcL Normal 0.2-1.0 [facility] ([place] Comment on above: Performed By: #### C RE, GFR #### [address] [address] Monocytes/100 WBC (Bld) 7.0 % Normal 1.7-13.0 [facility] ([place]) Comment on above: Performed By: #### C RE, GFR #### [address] [address] Neutrophils/100 WBC (Bld) 62.8 % Normal 37.0-80.0 [facility] ([place]) Comment on above: Performed By: #### C RE, GFR #### [address] [address] .GFRon 07-13-2023 GFR Non- 37 ml/min/1.73sqm Normal [facility] ([place]) Comment on above: Result Comment: GFR Population [...] Performed By: #### C RE, GFR #### [address] [address] GFR 45 ml/min/1.73sqm Normal [facility] ([place]) Comment on above: Result Comment: GFR Population [...] Performed By: #### C RE, GFR #### [address] [address] .NEUABSon 07-13-2023 Neutrophil, Absolute 4.8 10 3/mcL Normal 2.9-6.2 [facility] ([place]) Comment on above: Performed By: #### C RE, GFR #### [address] [address] B12on 07-13-2023 Cobalamin (Vitamin B12) [Mass/Vol] 1078 pg/mL High 211-911 [facility] ([place]) Comment on above: Performed By: #### C RE, GFR #### [address] [address] CBCon 07-13-2023 Erythrocyte distribution width (RBC) [Ratio] 14.5 % Normal 11.5-14.5 [facility] ([place]) Comment on above: Performed By: #### C RE, GFR #### [address] [address] Hematocrit (Bld) [Volume fraction] 37.6 % Normal 37.0-47.0 [facility] ([place]) Comment on above: Performed By: #### C RE, GFR #### [address] [address] Hgb 12.5 G/dL Normal 12.0-16.0 [facility] ([place]) Comment on above: Performed By: #### C RE, GFR #### [address] [address] MCH (RBC) [Entitic mass] 30.0 pg Normal 27.0-31.2 [facility] ([place]) Comment on above: Performed By: #### C RE, GFR #### [place] [id number] MCHC 33.2 G/dL Normal 33.0-37.0 [facility] ([place]) Comment on above: Performed By: #### C RE, GFR #### [place] [id number] MCV (RBC) [Entitic vol] 90.4 fL Normal 80.0-94.0 [facility] ([place]) Comment on above: Performed By: #### C RE, GFR #### [address] [address] Platelet 181 10 3/mcL Normal 130-400 [facility] ([place]) Comment on above: Performed By: #### C RE, GFR #### [address] [address] Platelet mean volume (Bld) [Entitic vol] 8.9 fL Normal 7.4-10.4 [facility] ([place]) Comment on above: Performed By: #### C RE, GFR #### [address] [address] RBC 4.16 10 6/mcL Low 4.20-5.40 [facility] ([place]) Comment on above: Performed By: #### C RE, GFR #### [place] [id number] WBC 7.7 10 3/mcL Normal 4.6-10.8 [facility] ([place]) Comment on above: Performed By: #### C RE, GFR #### [address] [address] CKon 07-13-2023 CK [Catalytic activity/Vol] 36 U/L Normal 26-192 [facility] ([place]) Comment on above: Performed By: #### C RE, GFR #### [address] [address] CMPon 07-13-2023 Albumin Level 3.7 G/dL Normal 3.4-4.8 [facility] ([place]) Comment on above: Performed By: #### C RE, GFR #### [address] [address] Albumin/Globulin [Mass ratio] 1.0 {ratio} Low 1.1-2.5 [facility] ([place]) Comment on above: Performed By: #### C RE, GFR #### [address] [address] ALP [Catalytic activity/Vol] 76 U/L Normal 40-135 [facility] ([place]) Comment on above: Performed By: #### C RE, GFR #### [address] [address] ALT [Catalytic activity/Vol] 17 U/L Normal 14-59 [facility] ([place]) Comment on above: Performed By: #### C RE, GFR #### [address] [address] AST [Catalytic activity/Vol] 15 U/L Normal 10-40 [facility] ([place]) Comment on above: Performed By: #### C RE, GFR #### [address] [address] Bili Total 0.3 mg/dL Normal 0.2-1.0 [facility] ([place]) Comment on above: Result Comment: Use of this assay is not recommended for patients undergoing treatment with eltrombopag due to the potential for falsely elevated results. Performed By: #### C RE, GFR #### [address] [address] BUN/Creatinine Ratio 20 ratio Normal 7-27 [facility] ([place]) Comment on above: Performed By: #### C RE, GFR #### [address] [address] Calcium [Mass/Vol] 8.9 mg/dL Normal 8.4-10.2 [facility] ([place]) Comment on above: Performed By: #### C RE, GFR #### [address] [address] Chloride [Moles/Vol] 104 mmol/L Normal 98-107 [facility] ([place]) Comment on above: Performed By: #### C RE, GFR #### [address] [address] CO2 [Moles/Vol] 30 mmol/L Normal 23-31 [facility] ([place]) Comment on above: Performed By: #### C RE, GFR #### [address] [address] Creatinine [Mass/Vol] 1.40 mg/dL High 0.55-1.02 [facility] ([place]) Comment on above: Performed By: #### C RE, GFR #### [address] [address] Electrolyte Balance 11.0 mEq/L Normal 4.0-15.0 [facility] ([place]) Comment on above: Performed By: #### C RE, GFR #### [address] [address] Globulin 3.6 G/dL Normal [facility] ([place]) Comment on above: Performed By: #### C RE, GFR #### [address] [address] Glucose [Mass/Vol] 205 mg/dL High 83-110 [facility] ([place] Comment on above: Performed By: #### C RE, GFR #### [address] [address] Potassium [Moles/Vol] 4.6 mmol/L Normal 3.5-5.1 [facility] ([place]) Comment on above: Performed By: #### C RE, GFR #### Katie [address] [address] Sodium [Moles/Vol] 145 mmol/L Normal 136-145 [facility] ([place] Comment on above: Performed By: #### C RE, GFR #### Katie [address] [address] Total Protein 7.3 G/dL Normal 6.4-8.2 [facility] ([place]) Comment on above: Performed By: #### C RE, GFR #### Katie [address] [address] Urea nitrogen [Mass/Vol] 28 mg/dL High 7-18 [facility] ([place]) Comment on above: Performed By: #### C RE, GFR #### [address] [address] CRPon 07-13-2023 C-Reactive Protein 2.1 mg/dL High 0.0-0.3 [facility] ([place]) Comment on above: Performed By: #### C RE, GFR #### Katie [address] [address] ESRon 07-13-2023 Erythrocyte Sed Rate 27 mm/hr Normal 0-30 [facility] ([place]) Comment on above: Performed By: #### C RE, GFR #### [address] [address] FOLon 07-13-2023 Folate >48.00 High 5.38-24.00 [facility] ([place]) Comment on above: Performed By: #### C RE, GFR #### [address] [address] FT4on 07-13-2023 Free T4 [Mass/Vol] 0.97 ng/dL Normal 0.76-1.46 [facility] ([place]) Comment on above: Performed By: #### C RE, GFR #### [address] [address] LIPIDon 07-13-2023 Cholesterol [Mass/Vol] 115 mg/dL Normal 0-200 [facility] ([place]) Comment on above: Result Comment: Chol esterol Reference Interval: Less than 200 Desirable 200-239 Borderline high risk 240 and above High risk Performed By: #### C RE, GFR #### [address] [address] Cholesterol in HDL [Mass/Vol] 42 mg/dL Normal 40-60 [facility] ([place]) Comment on above: Performed By: #### C RE, GFR #### [address] [address] Cholesterol in LDL [Mass/Vol] 49 mg/dL Normal 0-130 [facility] ([place]) Comment on above: Performed By: #### C RE, GFR #### [address] [address] Triglyceride [Mass/Vol] 120 mg/dL Normal 0-150 [facility] ([place]) Comment on above: Result Comment: Trig lyceride Reference Interval: Less than 150 Normal 150-199 Borderline high risk 200-499 High risk 500 or higher Very high risk Performed By: #### C RE, GFR #### [address] [address] PTHon 07-13-2023 PTH, Intact 60.7 pg/mL Normal 18.5-88.0 [facility] ([place]) Comment on above: Performed By: #### C RE, GFR #### [address] [address] TSHon 07-13-2023 TSH Qn 1.67 m[IU]/L Normal 0.36-3.74 [facility] ([place]) Comment on above: Performed By: #### C RE, GFR #### [address] [address] VIDHon 07-13-2023 Vit. D 25-Hydroxy 54.1 ng/mL Normal [facility] ([place]) Comment on above: Result Comment: Inte rpretive Values Based on Total 25(OH) Vitamin D: Deficient <20 ng/mL Insufficient 20 - <30 ng/mL Sufficient 30-100 ng/mL Performed By: #### C RE, GFR #### [address] [place], [place] [address] .GFRon 06-09-2023 GFR 44 ml/min/1.73sqm Normal [facility] ([place]) Comment on above: Result Comment: GFR [...] mL/min/1.73 square meters Performed By: #### G FR, PBNP, BMP ####[address] [place], [place] [address] GFR Non- 37 ml/min/1.73sqm Normal [facility] ([place]) Comment on above: Result Comment: GFR [...] mL/min/1.73 square meters Performed By: #### G FR, PBNP, BMP ####[address] [place], [place] [address] BMPon 06-09-2023 BUN/Creatinine Ratio 23 ratio Normal 7-27 [facility] ([place] Comment on above: Performed By: #### AUGUSTO OLSEN BMP ####[address] [place], [place] [address] Calcium [Mass/Vol] 9.3 mg/dL Normal 8.4-10.2 [facility] ([place]) Comment on above: Performed By: #### AUGUSTO OLSEN BMP ####[address] [place], [place] [address] Chloride [Moles/Vol] 102 mmol/L Normal 98-107 [facility] ([place] Comment on above: Performed By: #### AUGUSTO OLSEN BMP ####[address] [place], [place] [address] CO2 [Moles/Vol] 28 mmol/L Normal 23-31 [facility] ([place]) Comment on above: Performed By: #### AUGUSTO OLSEN BMP ####[address] [place], [place] [address] Creatinine [Mass/Vol] 1.42 mg/dL High 0.55-1.02 [facility] ([place]) Comment on above: Performed By: #### AUGUSTO OLSEN BMP ####[address] [place], [place] [address] Electrolyte Balance 10.0 mEq/L Normal 4.0-15.0 [facility] ([place]) Comment on above: Performed By: #### AUGUSTO OLSEN BMP ####[address] [place], [place] [address] Glucose [Mass/Vol] 239 mg/dL High 83-110 [facility] ([place] Comment on above: Performed By: #### AUGUSTO OLSEN BMP ####[address] [place], [place] [address] Potassium [Moles/Vol] 4.3 mmol/L Normal 3.5-5.1 [facility] ([place] Comment on above: Performed By: #### AUGUSTO OLSEN, BMP ####[address] [place], [place] [address] Sodium [Moles/Vol] 140 mmol/L Normal 136-145 [facility] ([place] Comment on above: Performed By: #### AUGUSTO OLSEN BMP ####[address] [place], [place] [address] Urea nitrogen [Mass/Vol] 33 mg/dL High 7-18 [facility] ([place]) Comment on above: Performed By: #### AUGUSTO OLSEN BMP ####[id number] [place], [place] [address] LABORATORYOrdered By: SYSTEM SYSTEM on 06-09-2023 Calcium [...] [Mass/Vol] 588 pg/mL High 0-125 [facility] ([place]) Comment on above: Result Comment: NT-p roBNP results of less than 300 pg/mL effectively rules out acute congestive heart failure with 99% negative predictive value. Performed By: #### G FR, PBNP, [facility] ####[id number] [place] [address] LABORATORYOrdered By: SYSTEM SYSTEM on 12-10-2022 Calcium [...] Mixed growth consistent with normal urogenital demarco. [facility] Work Phone: LABORATORYOrdered By: SYSTEM [...] Code AH Auto Viro/Sero SS B. parapertussis [id number] DNA ENRIQUE+non-probe Ql (Nph) Not Detected *NA* [...] Code AH Auto Viro/Sero SS status Not (08/19/22 4:45 PM) Invalid Interpretation Code AH Auto Viro/Sero SS RESIDES IN A CONGREGATE CARE SETTING:FIND:PT:^JARETH NT:ORD: No (08/19/22 4:45 PM) Invalid Interpretation [...] - 126 U/L AH ADM SS ALT No additional P-5'-P [Catalytic [...] [Vol rate/Area] 47 ml/min/1.73sqm Invalid Interpretation Code ADM SS Globulin 3.5 G/dL Invalid Interpretation Code 1.5 - 3.8 G/dL ADM SS Glucose [Mass/Vol] 72 mg/dL Invalid Interpretation Code 82 - 115 mg/dL ADM SS Hematocrit (Bld) [Volume fraction] 36.4 [...] 20.55 Invalid Interpretation Code 0.00 - 20.00 Workflow SS Comment on above: Result Comment: [...] ratio AH ADM SS WBC (Bld) [#/Vol] 16.6 103/mcL [...] Informationon 08-19 Culture Urine Culture results pending. [facility] Work Phone: Microscopic examination of blood, culture Culture has been received in lab and is no growth to date. Routine cultures are held for 5 days. [facility] Work Phone: LABORATORYOrdered By: Ju Griffin [...] Auto Viro/Sero SS EMPLOYED IN A HEALTHCARE SETTING:FIND:PT:^MATTE NT:ORD: No (05/22/22 2:10 PM) Invalid Interpretation [...] date and time [id number] Invalid Interpretation Code Auto Viro/Sero SS M. pneumoniae DNA ENRIQUE+non-probe Ql (Nph) Not Detected *NA* (05/22/22 2:10 PM) Invalid Interpretation Code Not Detected Auto Viro/Sero SS Parainfluenza virus 1 RNA ENRIQUE+non-probe Ql (Nph) Not Detected *NA* (05/22/22 2:10 PM) Invalid Interpretation Code Not Detected Auto Viro/Sero SS Parainfluenza virus 2 RNA ENRIQUE+non-probe Ql (Nph) Not Detected *NA* (05/22/22 2:10 PM) Invalid Interpretation Code Not Detected Auto Viro/Sero SS Parainfluenza virus 3 RNA ENRIQUE+non-probe Ql (Nph) Not Detected *NA* (05/22/22 2:10 PM) Invalid Interpretation Code Not Detected Auto Viro/Sero SS Parainfluenza virus 4 RNA ENRIQUE+non-probe Ql (Nph) Not Detected *NA* (05/22/22 2:10 PM) Invalid Interpretation Code Not Detected Auto Viro/Sero SS Patient was hospitalized because of this condition No (05/22/22 2:10 PM) Invalid Interpretation Code Auto Viro/Sero SS status Not (05/22/22 2:10 PM) Invalid Interpretation Code Auto Viro/Sero SS RESIDES IN A CONGREGATE CARE SETTING:FIND:PT:^MATTE NT:ORD: No (05/22/22 2:10 PM) Invalid Interpretation Code Auto Viro/Sero SS Rhinovirus+Enterovirus RNA ENRIQUE+non-probe Ql (Nph) Not Detected *NA* (05/22/22 2:10 PM) Invalid Interpretation Code Not Detected Auto Viro/Sero SS RSV RNA ENRIQUE+non-probe Ql (Nph) Not Detected *NA* (05/22/22 2:10 PM) Invalid Interpretation Code Not Detected Auto Viro/Sero SS SARS-CoV-2 (COVID-19) RNA ENRIQUE+probe Ql (Unsp spec) Not Detected *NA* (05/22/22 2:10 PM) Invalid Interpretation Code Not Detected Auto Viro/Sero SS LABORATORYOrdered By: Jade Mcclellan [...] 2:10 PM) Invalid Interpretation Code 1.006-1.02 9 AH Auto Urine SS UA Specimen Type Clean Catch (05/22/22 2:10 PM) Invalid Interpretation Code AH Auto Urine SS UA Urobilinogen 0.2 E.U./dL Invalid Interpretation Code 0.2-1.0E.U ./dL AH Auto Urine SS LABORATORYOrdered By: SYSTEM SYSTEM on 05-22-2022 Albumin BCP dye [Mass/Vol] 4.1 G/dL Invalid Interpretation Code 3.2 - 4.8 G/dL AH ADM SS Albumin/Globulin [Mass ratio] 1.3 {ratio} Invalid Interpretation Code 0.9 - 1.6 ratio AH ADM SS ALP [Catalytic activity/Vol] 53 U/L Invalid Interpretation Code 38 - 126 U/L AH ADM SS ALT No additional P-5'-P [Catalytic activity/Vol] 12 U/L Invalid Interpretation Code 10 - 49 U/L AH ADM SS AST [Catalytic activity/Vol] 25 U/L Invalid Interpretation Code 8 - 34 U/L AH ADM SS Basophils (Bld) [#/Vol] 0.1 103/mcL Invalid Interpretation Code 0.0 - 0.3 10^3/mcL AH Workflow SS Basophils/100 WBC (Bld) 0.6 % [...] 10^3/mcL AH Workflow SS Lymphocytes/100 WBC (Bld) 18.0 % Invalid Interpretation Code 20.0 - 40.0 % AH Workflow SS MCH (RBC) [Entitic mass] 31.0 pg Invalid Interpretation Code 27.0 - 33.0 pg AH Workflow SS MCHC 34.5 G/dL Invalid Interpretation [...] 8.2 G/dL ADM SS RBC (Bld) [#/Vol] 3.60 106/mcL [...] Invalid Interpretation Code 4.5 - 10.8 10^3/mcL Workflow SS LABORATORYOrdered By: Yoly Cortes on [...] Routine cultures are held for 5 days. [facility] Work Phone: LABORATORYOrdered By: Geoffrey Tellez [...] 27 ratio AO ADM SS LABORATORYOrdered By: [employer] SYSTEM on 05-01-2022 GFR 48 ml/min/1.73sqm Invalid [...] the ages of 18-89 years. LABORATORYOrdered By: [employer] SYSTEM on 03-24-2022 Cortisol [Mass/Vol] 25.0 ug/dL [...] Interpretation Code AO Chemistry S LABORATORYOrdered By: Understory on 12-25-2021 Blood Glucose Testing Reason Routine (12/25/21 10:58 AM) [facility] Work Phone: Glucose [Mass/Vol] 159 mg/dL Invalid Interpretation Code 82 - 115 mg/dL [facility] Work Phone: Blood Glucose Testing Reason Routine (12/25/21 6:53 AM) [facility] Work Phone: Glucose [Mass/Vol] 112 mg/dL Invalid Interpretation Code 82 - 115 mg/dL [facility] Work Phone: LABORATORYOrdered By: [employer] SYSTEM on 12-25-2021 Base excess Calc (BldMV) [...] [Vol rate/Area] 46 ml/min/1.73sqm Invalid Interpretation Code ADM SS Glucose [Mass/Vol] 129 mg/dL Invalid [...] Glucose Testing Reason Routine (12/24/21 9:09 PM) [facility] Work Phone: Glucose [Mass/Vol] 151 mg/dL Invalid Interpretation Code 82 - 115 mg/dL [facility] Work Phone: LABORATORYOrdered By: SYSTEM SYSTEM on 12-24-2021 Troponin I.cardiac DL <= 0.01 ng/mL [Mass/Vol] 63.97 ng/L Invalid Interpretation Code 0.00 - 34.00 ng/L ADM SS Albumin [Mass/Vol] 3.0 G/dL Invalid Interpretation Code 3.2 - 4.8 G/dL ADM SS Albumin/Globulin [Mass ratio] 0.9 {ratio} Invalid Interpretation Code 0.9 - 1.6 ratio ADM SS ALP [Catalytic activity/Vol] 54 U/L Invalid Interpretation Code 38 - 126 U/L ADM SS ALT [Catalytic activity/Vol] 13 U/L Invalid Interpretation Code 10 - 49 U/L ADM SS AST [Catalytic activity/Vol] 9 U/L Invalid Interpretation Code 8 - 34 U/L ADM SS Base excess Calc (BldMV) [Moles/Vol] 8.0 mEq/L Invalid Interpretation Code 4.0 - 15.0 mEq/L ADM SS Basophils (Bld) [#/Vol] 0.00 103/mcL Invalid Interpretation Code 0.00 - 0.27 10^3/mcL Remisol SS Basophils/100 WBC (Bld) 0.3 % Invalid Interpretation Code 0.0 - 2.5 % Remisol SS Bilirubin [Mass/Vol] 0.6 mg/dL Invalid Interpretation Code 0.2 - 1.2 mg/dL ADM SS Calcium [Mass/Vol] 8.7 mg/dL Invalid Interpretation Code 8.4 - 10.1 mg/dL ADM SS Chloride [Moles/Vol] 107 mmol/L Invalid Interpretation Code 98 - 110 mEq/L ADM SS CO2 [Moles/Vol] 24 mmol/L Invalid Interpretation Code 22 - 32 mEq/L ADM SS Creatinine [Mass/Vol] 0.88 mg/dL Invalid Interpretation Code 0.50 - 1.20 mg/dL ADM SS CRP [Mass/Vol] 0.5 mg/dL Invalid [...] - 3.8 G/dL ADM SS Glucose [Mass/Vol] 133 mg/dL Invalid Interpretation Code 82 - 115 mg/dL AH ADM SS HbA1c (Bld) [Mass fraction] 6.3 % Invalid Interpretation Code 4.0 - 6.0 % Auto Chem SS Hematocrit (Bld) [Volume fraction] 32.2 % Invalid Interpretation Code 34.0 - 46.0 % Remisol SS Hemoglobin (Bld) [Mass/Vol] 10.8 G/dL Invalid Interpretation Code 12.0 - 16.0 G/dL Remisol SS Lymphocytes (Bld) [#/Vol] 1.10 103/mcL [...] Remisol SS Natriuretic peptide.B prohormone N-Terminal [Mass/Vol] 62817 pg/mL Invalid Interpretation Code 0 - 900 pg/mL AH ADM SS Neutrophils (Bld) [#/Vol] 6.10 103/mcL Invalid Interpretation Code 2.25 - 8.10 10^3/mcL AH Remisol SS Neutrophils/100 WBC (Bld) 80.1 % Invalid Interpretation Code 50.0 - 75.0 % AH Remisol SS Phosphate [Mass/Vol] 3.3 mg/dL Invalid Interpretation Code 2.5 - 4.5 mg/dL AH ADM SS Comment on above: Result Comment: Spec imen slightly lipemic. Results may be falsely decreased. Platelet mean volume (Bld) [Entitic vol] 9.5 fL Invalid Interpretation Code 6.6 - 10.5 fL AH Remisol SS Platelets (Bld) [#/Vol] 115 103/mcL Invalid Interpretation Code 150 - 450 10^3/mcL AH Remisol SS Potassium [Moles/Vol] 3.8 mmol/L Invalid Interpretation Code 3.5 - 5.0 mEq/L AH ADM SS Comment on above: Result Comment: Spec imen slightly hemolyzed. Protein [Mass/Vol] 6.5 G/dL Invalid Interpretation Code 6.0 - 8.5 G/dL AH ADM SS RBC (Bld) [#/Vol] 3.64 106/mcL Invalid Interpretation Code 4.10 - 5.30 10^6/mcL AH Remisol SS Sodium [Moles/Vol] 139 mmol/L Invalid Interpretation Code 136 - 145 mEq/L AH ADM SS Troponin I.cardiac DL <= 0.01 [...] ADM SS LABORATORYOrdered By: SYSTEM SYSTEM on 12-09-2021 GFR 68 ml/min/1.73sqm Invalid Interpretation Code AO Chemistry S GFR Non- 56 ml/min/1.73sqm Invalid Interpretation Code AO Chemistry S LABORATORYOrdered By: Ivania Lott on 12-05-2021 Glucose [Mass/Vol] 169 mg/dL Invalid Interpretation Code 82 - 115 mg/dL [facility] Work Phone: Blood Glucose Testing Reason Routine (12/05/21 8:07 AM) [facility] Work Phone: Glucose [Mass/Vol] 160 mg/dL Invalid Interpretation Code 82 - 115 mg/dL [facility] Work Phone: LABORATORYOrdered By: [employer] SYSTEM on 12-05-2021 Basophils (Bld) [#/Vol] 0.00 [...] 32 mEq/L AH ADM SS Creatinine [Mass/Vol] 0.99 mg/dL Invalid Interpretation Code 0.50 - 1.20 mg/dL AH ADM SS Electrolyte Balance 6.0 mEq/L Invalid [...] Interpretation Code AH ADM SS Glucose [Mass/Vol] 125 mg/dL Invalid [...] Glucose Testing Reason Routine (12/04/21 9:52 PM) [facility] Work Phone: Glucose [Mass/Vol] 112 mg/dL Invalid Interpretation Code 82 - 115 mg/dL [facility] Work Phone: LABORATORYOrdered By: Sanford Stiles on 12-04-2021 Blood Glucose Testing Reason Routine (12/04/21 4:08 PM) [facility] Work Phone: LABORATORYOrdered By: [employer] on 12-04-2021 Anisocytosis Ql (Bld) Slight *NA* [...] IV (12/03/21 5:13 AM) Invalid Interpretation Code AH Auto Coag [...] Interpretation Code AH ADM SS Glucose [Mass/Vol] 162 mg/dL Invalid [...] Invalid Interpretation Code 2.0 - 13.0 % Remisol SS Neutrophils (Bld) [#/Vol] 2.30 103/mcL Invalid Interpretation Code 2.25 - 8.10 10^3/mcL AH Remisol SS Neutrophils/100 WBC (Bld) 44.7 % Invalid Interpretation Code 50.0 - 75.0 % Remisol SS LABORATORYOrdered By: Vee Matias on [...] Invalid Interpretation Code 50 - 170 mcg/dL ADM SS Iron binding capacity [Mass/Vol] 305 mcg/dL Invalid Interpretation Code 250 - 500 mcg/dL ADM SS Iron saturation [Mass fraction] 18 1 Invalid Interpretation Code ADM SS 25-hydroxyvitamin D3 [Mass/Vol] 38.4 ng/mL Invalid Interpretation Code ADM SS Iron [Mass/Vol] 47 ug/dL Invalid Interpretation Code 50 - 170 mcg/dL ADM SS LABORATORYOrdered By: Linda Oliveros on 11-30-2021 Appearance (U) Cloudy *ABN* (11/30/21 12:52 PM) Invalid Interpretation Code Clear Auto Urine SS Bacteria LM.HPF (Urine sed) [...] Blood Culture: No Growth at 5 days. [facility] Work Phone: LABORATORYOrdered By: SYSTEM SYSTEM [...] Code AH BB Auto SS LABORATORYOrdered By: [employer] on 11-27-2021 CRP [Mass/Vol] 5.2 mg/dL Invalid [...] Auto Viro/Sero SS EMPLOYED IN A HEALTHCARE SETTING:FIND:PT:^MATTE NT:ORD: No (11/27/21 12:42 PM) Invalid Interpretation Code AH Auto Viro/Sero SS FIRST TEST FOR CONDITION OF INTEREST:FIND:PT:^MATT ENT:ORD: No (11/27/21 12:42 PM) Invalid Interpretation Code Auto Viro/Sero SS FLUAV RNA ENRIQUE+non-probe Ql [...] Yes (11/27/21 12:42 PM) Invalid Interpretation Code AH Auto Viro/Sero SS status Not (11/27/21 12:42 PM) Invalid Interpretation Code AH Auto Viro/Sero SS RESIDES IN A CONGREGATE CARE SETTING:FIND:PT:^JAERTH NT:ORD: No (11/27/21 12:42 PM) Invalid Interpretation [...] Blood Culture: No Growth at 5 days. [facility] Work Phone: Culture Urine No growth at 48 hours. [facility] Work Phone: LABORATORYOrdered By: Yanna navarrete [...] Barometric Pressure 718 mm[Hg] Invalid Interpretation Code Auto Chem SS Base excess Calc (Bld) [Moles/Vol] 5.9 mmol/L Invalid Interpretation Code Auto Chem SS CO2 (Bld) [Partial pressure] [...] - 7.460 Auto Chem SS LABORATORYOrdered By: [employer] SYSTEM on 11-25-2021 Albumin [Mass/Vol] 2.7 G/dL [...] - 8.5 G/dL ADM SS LABORATORYOrdered By: [employer] SYSTEM on 11-24-2021 Troponin I.cardiac DL <= [...] Coccidioides Ab, IgG 0.2 Invalid Interpretation Code Sendouts SS Comment on above: Result Comment: Refe rence [...] Coccidioides Ab, IgM 0.1 Invalid Interpretation Code Sendouts SS Comment on above: Result Comment: Refe antonietta range: <=0.9 Unit: IV (NOTE) INTERPRETIVE INFORMATION: [...] represented in the EDNA tests. Performed By: [facility] [address] [place] [id number] Elocution Teacher: Nicolette Bolton MD LABORATORYOrdered By: [employer] Switch on 11-22-2021 Natriuretic peptide.B prohormone N-Terminal [Mass/Vol] 9680 pg/mL Invalid Interpretation Code 0 - 900 pg/mL ADM SS Albumin [Mass/Vol] 2.2 G/dL Invalid Interpretation Code 3.2 - 4.8 G/dL ADM SS Albumin/Globulin [Mass ratio] 0.6 {ratio} Invalid Interpretation Code 0.9 - 1.6 ratio ADM SS ALP [Catalytic activity/Vol] 71 U/L Invalid Interpretation Code 38 - 126 U/L ADM SS ALT [Catalytic activity/Vol] 25 U/L Invalid Interpretation Code 10 - 49 U/L ADM SS AST [Catalytic activity/Vol] 35 U/L Invalid Interpretation Code 8 - 34 U/L ADM SS Bilirubin [Mass/Vol] 0.3 mg/dL Invalid Interpretation Code 0.2 - 1.2 mg/dL ADM SS Globulin (S) [Mass/Vol] 3.7 G/dL Invalid Interpretation Code 1.5 - 3.8 G/dL ADM SS Phosphate [Mass/Vol] 3.3 mg/dL Invalid [...] Comment on above: Result Comment: [place] [id number] FLU B PCR Negative 5 (11/22/21 6:28 AM) Invalid Interpretation Code Negative AH Auto Viro/Sero SS Comment on above: Result Comment: [place] [id number] Hospitalized Yes (11/22/21 6:28 AM) Invalid Interpretation [...] Comment on above: Result Comment: [place] s [id number] SARS-CoV-2 (COVID-19) RNA ENRIQUE+probe Ql (Unsp spec) Negative 3 (11/22/21 6:28 AM) Invalid Interpretation Code Negative AH Auto Viro/Sero SS Comment on above: Result Comment: [place] [id number] Symptomatic as Defined by CDC Yes (11/22/21 [...] Invalid Interpretation Code 1.12 - 1.32 mmol/L Auto Chem SS LABORATORYOrdered By: Rob Tam [...] respiratory demarco present. Sensitivity testing not indicated. [facility] Work Phone: Comment on above: Requests for Mycopla sma, Legionella, Fungi, Mycobacteria, Chlamydia, and Viruses require ordering of those individual tests. GS Rare Epithelial cell s Rare Polymorphonuclear cells No organisms seen. [facility] Work Phone: Comment on above: Requests for Mycopla sma, Legionella, Fungi, Mycobacteria, Chlamydia, and Viruses require ordering of those individual tests. Culture Urine No growth at 48 hours. [facility] Work Phone: Legionella Urine Ag Presumptive negative for L. pneumophila serogroup 1 antigen in urine, suggesting no recent or current infection. Legionnaire's disease cannot be ruled out since other serogroups and species may also cause disease. [facility] Work Phone: Streptococcus Pneumoniae Urine Antig Presumptive negative for pneumococcal pneumonia, suggesting no current or recent pneumococcal infection. Infection due to Strep pneumoniae cannot be ruled out since the antigen present in the sample may be below the detection limit of the test. [facility] Work Phone: Comment on above: This test has not be en evaluated on patients taking antibiotics for greater than 24 hours or on patients who have recently completed an antibiotic regimen. The accuracy of this test has not been proven in young children. Microscopic examination of blood, culture Blood Culture: No Growth at 5 days. [facility] Work Phone: LABORATORYOrdered By: Ellie Alfonso [...] SURGICAL PATHOLOGYon 020 SURGICAL PATHOLOGY Specimen #: [id number] Submitting Physician: RADHA WEIR M.D. FINAL [...] biopsy - Actinic keratosis. - Stasis changes. ALVARO/ROSITA/marlene 04/10/2020 Celi Bennett M.D. (Electronic Signature) SPECIMEN [...] in one cassette. Gross examination performed at [facility], [address] [place] [address] J 04/09/2020 10:54:28 PM Date of Report: 04/10/2020 Date of Procedure: 04/09/2020 Date of Receipt: 04/09/2020 Submitted by: RADHA WEIR M.D. Location: Diagnostic interpretation performed at [place] [address]. CLIA Number: [id number] [facility] Reference [facility] Comment on above: Performed By: #### S #### See report for performing lab information. SURGICAL PATHOLOGYon 020 SURGICAL PATHOLOGY Specimen #: [id number] Submitting Physician: DIPTI GONZALEZ FINAL DIAGNOSIS A. Skin, right shoulder, shave biopsy - Basal cell carcinoma, superficial type, see comment. ALEXB/lbtawana 01/17/2020 COMMENT The histologic features are compatible [...] in one cassette. Gross examination performed at [facility], [address] [place] [address] 01/16/2020 11:35:43 PM Date of Report: 01/17/2020 Date of Procedure: 01/16/2020 Date of Receipt: 01/16/2020 Submitted by: DIPTI GONZALEZ Location: Diagnostic interpretation performed at [place] [address]. CLIA Number: [id number] Normal [facility] Reference Lab Comment on above: Performed By: #### S #### See report for performing lab information. Vital Signs Date Time Vital Sign Value Performing Clinician Facility 05-29-2025 15:17-0400 Body height 172.[address] Marci Lopez DO Work Phone: [facility] 05-29-2025 15:17-0400 Body mass index (BMI) [Ratio] 19.9 kg/m2 Dr. Marci Lopez DO Work Phone: [facility] 05-29-2025 15:17-0400 Body weight 59.[address] Marci Lopez DO Work Phone: [facility] 05-29-2025 15:17-0400 Diastolic blood pressure 57 mm[Hg] Dr. Marci Lopez DO Work Phone: [facility] 05-29-2025 15:17-0400 Heart rate 80 /min Dr. Marci Lopez DO Work Phone: [facility] 05-29-2025 15:17-0400 Respiratory rate 18 /min Dr. Marci Lopez DO Work Phone: [facility] 05-29-2025 15:17-0400 Systolic blood pressure 99 mm[Hg] Dr. Marci Lopez DO Work Phone: [facility] 05-22-2025 20:53-0400 Body temperature 98.5 [degF] Dr. Marci Lopez DO Work Phone: 7(657)[phone] [place] [address] 05-22-2025 20:53-0400 Diastolic blood pressure 56 mm[Hg] Dr. Marci Lopez DO Work Phone: 9(584)[phone] [place] [address] 05-22-2025 20:53-0400 Heart rate 69 /min Dr. Marci Lopez DO Work Phone: 7(735)[phone] [address] 05-22-2025 20:53-0400 Respiratory rate 16 /min Dr. Marci Lopez DO Work Phone: 6(636)[phone] [address] 05-22-2025 20:53-0400 SaO2% (BldA) [Mass fraction] 94 % Dr. Marci Lopez DO Work Phone: 7(887)[phone] [address] 05-22-2025 20:53-0400 Systolic blood pressure 111 mm[Hg] Dr. Marci Lopez DO Work Phone: 9(721)[phone] [address] 05-22-2025 19:08-0400 Inhaled oxygen flow rate 2 L/min Dr. Marci Lopez DO Work Phone: [phone])[phone] [place] [address] 05-22-2025 14:39-0400 Body height 172.[address] Marci Lopez DO Work Phone: 7(833)[phone] [address] 05-22-2025 14:39-0400 Body mass index (BMI) [Ratio] 21.1 kg/m2 Dr. Marci Lopez DO Work Phone: 1(185)585-010178 [place] [address] 05-22-2025 14:39-0400 Body weight 62.[address] Marci Lopez DO Work Phone: 9(835)[phone] [address] 05-03-2025 10:08-0400 Heart rate 66 /min Dr. Marci Lopez DO Work Phone: [facility] 05-03-2025 10:07-0400 Diastolic blood pressure 59 mm[Hg] Dr. Marci Lopez DO Work Phone: [facility] 05-03-2025 10:07-0400 Systolic blood pressure 112 mm[Hg] Dr. Marci Lopez DO Work Phone: [facility] 05-03-2025 08:22-0400 Body temperature 98.4 [degF] Dr. Marci Lopez DO Work Phone: [facility] 05-03-2025 08:22-0400 Respiratory rate 16 /min Dr. Marci Lopez DO Work Phone: [facility] 05-03-2025 08:22-0400 SaO2% (BldA) [Mass fraction] 94 % Dr. Marci Lopez DO Work Phone: [facility] 05-01-2025 14:36-0400 Body mass index (BMI) [Ratio] 20.6 kg/m2 Dr. Marci Lopez DO Work Phone: [facility] 05-01-2025 14:36-0400 Body weight 61.[address] Marci Lopez DO Work Phone: [facility] 04-25-2025 20:00-0400 Heart rate 64 /min Dr. Marci Lopez DO Work Phone: [facility] 04-25-2025 16:36-0400 Body mass index (BMI) [Ratio] 20.4 kg/m2 Dr. Marci Lopez DO Work Phone: [facility] 04-25-2025 16:36-0400 Body weight 60.[address] Marci Lopez DO Work Phone: [facility] 04-25-2025 15:10-0400 Body height 172.[address] Marci Lopez DO Work Phone: [facility] 04-25-2025 09:01-0400 Body temperature 97.9 [degF] Dr. Marci Lopez DO Work Phone: [facility] 04-25-2025 09:01-0400 Diastolic blood pressure 51 mm[Hg] Dr. Marci Lopez DO Work Phone: [facility] 04-25-2025 09:01-0400 Respiratory rate 16 /min Dr. Marci Lopez DO Work Phone: [facility] 04-25-2025 09:01-0400 Systolic blood pressure 111 mm[Hg] Dr. Marci Lopez DO Work Phone: [facility] 04-25-2025 08:14-0400 Body temperature 97.4 [degF] Dr. Marci Lopez DO Work Phone: [facility] 04-25-2025 08:14-0400 Diastolic blood pressure 57 mm[Hg] Dr. Marci Lopez DO Work Phone: [facility] 04-25-2025 08:14-0400 Heart rate 63 /min Dr. Marci Lopez DO Work Phone: [facility] 04-25-2025 08:14-0400 Respiratory rate 14 /min Dr. Marci Lopez DO Work Phone: [facility] 04-25-2025 08:14-0400 SaO2% (BldA) [Mass fraction] 94 % Dr. Marci Lopez DO Work Phone: [facility] 04-25-2025 08:14-0400 Systolic blood pressure 108 mm[Hg] Dr. Marci Lopez DO Work Phone: [facility] 04-25-2025 06:48-0400 Body mass index (BMI) [Ratio] 45 kg/m2 Dr. Marci Lopez DO Work Phone: [facility] 04-25-2025 06:48-0400 Body weight 134.[address] Marci Lopez DO Work Phone: [facility] 04-20-2025 14:41-0400 Body temperature 98.7 [degF] Dr. Marci Lopez DO Work Phone: [facility] 04-20-2025 14:41-0400 Diastolic blood pressure 57 mm[Hg] Dr. Marci Lopez DO Work Phone: [facility] 04-20-2025 14:41-0400 Heart rate 60 /min Dr. Marci Lopez DO Work Phone: [facility] 04-20-2025 14:41-0400 Respiratory rate 16 /min Dr. Marci Lopez DO Work Phone: [facility] 04-20-2025 14:41-0400 SaO2% (BldA) [Mass fraction] 97 % Dr. Marci Lopez DO Work Phone: [facility] 04-20-2025 14:41-0400 Systolic blood pressure 136 mm[Hg] Dr. Marci Lopez DO Work Phone: [facility] 04-19-2025 13:18-0400 Body height 172.[address] Marci Lopez DO Work Phone: [facility] 04-19-2025 13:18-0400 Body mass index (BMI) [Ratio] 20.7 kg/m2 Dr. Marci Lopez DO Work Phone: [facility] 04-19-2025 13:18-0400 Body weight [address] Marci Lopez DO Work Phone: [facility] 04-19-2025 12:00-0400 Diastolic blood pressure 75 mm[Hg] Dr. Marci Lopez DO Work Phone: [facility] 04-19-2025 12:00-0400 Heart rate 77 /min Dr. Marci Lopez DO Work Phone: [facility] 04-19-2025 12:00-0400 Respiratory rate 18 /min Dr. Marci Lopez DO Work Phone: [facility] 04-19-2025 12:00-0400 SaO2% (BldA) [Mass fraction] 96 % Dr. Marci Lopez DO Work Phone: [facility] 04-19-2025 12:00-0400 Systolic blood pressure 174 mm[Hg] Dr. Marci Lopez DO Work Phone: [facility] 04-19-2025 11:30-0400 Body temperature 98 [degF] Dr. Marci Lopez DO Work Phone: [facility] 04-19-2025 03:35-0400 Body height 172.[address] Marci Lopez DO Work Phone: [facility] 04-19-2025 03:35-0400 Body mass index (BMI) [Ratio] 21.6 kg/m2 Dr. Marci Lopez DO Work Phone: [facility] 04-19-2025 03:35-0400 Body weight 64.[address] Marci Lopez DO Work Phone: [facility] 04-04-2025 12:35-0400 Diastolic blood pressure 47 mm[Hg] Mri (1.5t) [facility] 04-04-2025 12:35-0400 Heart rate 90 /min Mri (1.5t) [facility] Comment on above: pacer taken out of MRI safe mode 04-04-2025 12:35-0400 Respiratory rate 18 /min Mri (1.5t) [facility] 04-04-2025 12:35-0400 SaO2% (BldA) [Mass fraction] 98 % Mri (1.5t) [facility] 04-04-2025 12:35-0400 Systolic blood pressure 125 mm[Hg] Mri (1.5t) [facility] 03-10-2025 14:00-0400 Diastolic blood pressure 70 mm[Hg] Dr. Marci Lopez DO Work Phone: [facility] 03-10-2025 14:00-0400 Heart rate 60 /min Dr. Marci Lopez DO Work Phone: [facility] 03-10-2025 14:00-0400 Respiratory rate 18 /min Dr. Marci Lopez DO Work Phone: [facility] 03-10-2025 14:00-0400 SaO2% (BldA) [Mass fraction] 97 % Dr. Marci Lopez DO Work Phone: [facility] 03-10-2025 14:00-0400 Systolic blood pressure 151 mm[Hg] Dr. Marci Lopez DO Work Phone: [facility] 03-10-2025 11:28-0400 Body mass index (BMI) [Ratio] 20.9 kg/m2 Dr. Marci Lopez DO Work Phone: [facility] 03-10-2025 11:28-0400 Body weight 62.[address] Marci Lopez DO Work Phone: [facility] 03-10-2025 11:27-0400 Body height 172.[address] Marci Lopez DO Work Phone: [facility] 03-10-2025 11:27-0400 Body temperature 97.8 [degF] Dr. Marci Lopez DO Work Phone: [facility] 02-27-2025 15:22-0400 Body mass index (BMI) [Ratio] 20.78 kg/m2 Leyla Murphy MD Work Phone: [facility] 02-27-2025 15:22-0400 Body weight 62 kg Leyla Murphy MD Work Phone: [facility] 02-27-2025 15:22-0400 SaO2% (BldA) [Mass fraction] 96 % Leyla Murphy MD Work Phone: [facility] 02-13-2025 09:10-0400 Body mass index (BMI) [Ratio] 20.7 kg/m2 Dr. Marci Lopez DO Work Phone: [facility] [facility] 02[facility]13[facility]25 09:10-0400 Body weight 61.[address] Marci Lopez DO Work Phone: [facility] 02-13-2025 09:10-0400 Diastolic blood pressure 67 mm[Hg] Dr. Marci Lopez DO Work Phone: [facility] 02-13-2025 09:10-0400 Systolic blood pressure 107 mm[Hg] Dr. Marci Lopez DO Work Phone: [facility] 01-23-2025 13:16-0500 Body temperature 97.3 [degF] Dr. Marci Lopez DO Work Phone: [facility] 01-23-2025 13:16-0500 Diastolic blood pressure 66 mm[Hg] Dr. Marci Lopez DO Work Phone: [facility] 01-23-2025 13:16-0500 Heart rate 62 /min Dr. Marci Lopez DO Work Phone: [facility] 01-23-2025 13:16-0500 Respiratory rate 16 /min Dr. Marci Lopez DO Work Phone: [facility] 01-23-2025 13:16-0500 SaO2% (BldA) [Mass fraction] 95 % Dr. Marci Lopez DO Work Phone: [facility] 01-23-2025 13:16-0500 Systolic blood pressure 121 mm[Hg] Dr. Marci Lopez DO Work Phone: [facility] 01-18-2025 08:06-0500 Body mass index (BMI) [Ratio] 20 kg/m2 Dr. Marci Lopez DO Work Phone: [facility] 01-18-2025 08:06-0500 Body weight 59.[address] Marci Lopez DO Work Phone: [facility] 01-18-2025 08:06-0500 Diastolic blood pressure 73 mm[Hg] Dr. Marci Lopez DO Work Phone: [facility] 01-18-2025 08:06-0500 Heart rate 97 /min Dr. Marci Lopez DO Work Phone: [facility] 01-18-2025 08:06-0500 Respiratory rate 18 /min Dr. Marci Lopez DO Work Phone: [facility] 01-18-2025 08:06-0500 SaO2% (BldA) [Mass fraction] 97 % Dr. Marci Lopez DO Work Phone: [facility] 01-18-2025 08:06-0500 Systolic blood pressure 114 mm[Hg] Dr. Marci Lopez DO Work Phone: [facility] 12-22-2024 11:30-0500 Diastolic blood pressure 75 mm[Hg] Dr. Marci Lopez DO Work Phone: [facility] 12-22-2024 11:30-0500 Heart rate 85 /min Dr. Marci Lopez DO Work Phone: [facility] 12-22-2024 11:30-0500 Respiratory rate 16 /min Dr. Marci Lopez DO Work Phone: [facility] 12-22-2024 11:30-0500 SaO2% (BldA) [Mass fraction] 99 % Dr. Marci Lopez DO Work Phone: [facility] 12-22-2024 11:30-0500 Systolic blood pressure 117 mm[Hg] Dr. Marci Lopez DO Work Phone: [facility] 12-19-2024 15:14-0500 Body temperature 98 [degF] Dr. Marci Lopez DO Work Phone: [facility] 12-19-2024 15:14-0500 Body weight 60.[address] Marci Lopez DO Work Phone: [facility] 12-19-2024 15:14-0500 Diastolic blood pressure 67 mm[Hg] Dr. Marci Lopez DO Work Phone: [facility] 12-19-2024 15:14-0500 Heart rate 74 /min Dr. Marci Lopez DO Work Phone: 6(993)486-377647 [address] 12-19-2024 15:14-0500 Respiratory rate 16 /min Dr. Marci Lopez DO Work Phone: 8(638)861-763747 [address] 12-19-2024 15:14-0500 SaO2% (BldA) [Mass fraction] 96 % Dr. Marci Lopez DO Work Phone: 5(441)[phone] [place] [address] 12-19-2024 15:14-0500 Systolic blood pressure 123 mm[Hg] Dr. Marci Lopez DO Work Phone: 9(846)992-141447 [address] 11-28-2024 13:54-0500 Body mass index (BMI) [Ratio] 20 kg/m2 Dr. Marci Lopez DO Work Phone: [facility] 11-28-2024 13:54-0500 Body weight 59.[address] Marci Lopez DO Work Phone: [facility] 11-28-2024 13:54-0500 Diastolic blood pressure 57 mm[Hg] Dr. Marci Lopez DO Work Phone: 1(338)[phone] [place] [address] 11-28-2024 13:54-0500 Heart rate 85 /min Dr. Marci Lopez DO Work Phone: 6(882)[phone] [place] [address] 11-28-2024 13:54-0500 Respiratory rate 18 /min Dr. aMrci Lopez DO Work Phone: [facility] 11-28-2024 13:54-0500 SaO2% (BldA) [Mass fraction] 96 % Dr. Marci Lopez DO Work Phone: [facility] 11-28-2024 13:54-0500 Systolic blood pressure 92 mm[Hg] Dr. Marci Lopez DO Work Phone: [facility] 11-18-2024 17:16-0500 Body temperature 98.7 [degF] Dr. Marci Lopez DO Work Phone: [facility] 11-18-2024 17:16-0500 Heart rate 62 /min Dr. Marci Lopez DO Work Phone: [facility] 11-18-2024 17:16-0500 Respiratory rate 18 /min Dr. Marci Lopez DO Work Phone: [facility] 11-18-2024 17:16-0500 SaO2% (BldA) [Mass fraction] 97 % Dr. Marci Lopez DO Work Phone: [facility] 11-18-2024 14:20-0500 Diastolic blood pressure 74 mm[Hg] Dr. Marci Lopez DO Work Phone: [facility] 11-18-2024 14:20-0500 Systolic blood pressure 122 mm[Hg] Dr. Marci Lopez DO Work Phone: [facility] 08-01-2024 15:26-0400 Body weight 59.[address] Marci Lopez DO Work Phone: [facility] 05-17-2024 14:39-0400 Body height 172.7 cm Ghazala Gusman MD Work Phone: [facility] 05-17-2024 14:39-0400 Body mass index (BMI) [Ratio] 19.52 kg/m2 Ghazala Gusman MD Work Phone: [facility] 05-17-2024 14:39-0400 Body weight 58.24 kg Ghazala Gusman MD Work Phone: [facility] 05-17-2024 14:39-0400 Diastolic blood pressure 58 mm[Hg] Ghazala Gusman MD Work Phone: [facility] 05-17-2024 14:39-0400 Heart rate 72 /min Ghazala Gusman MD Work Phone: [facility] 05-17-2024 14:39-0400 SaO2% (BldA) [Mass fraction] 97 % Ghazala Gusman MD Work Phone: [facility] 05-17-2024 14:39-0400 Systolic blood pressure 95 mm[Hg] Ghazala Gusman MD Work Phone: [facility] 03-15-2024 09:18-0400 Heart rate 62 /min Dr. Adrienne Byers Work Phone: [facility] 03-15-2024 09:12-0400 Body temperature 97.7 [degF] Dr. Adrienne Byers Work Phone: [facility] 03-15-2024 09:12-0400 Diastolic blood pressure 50 mm[Hg] Dr. Adrienne Byers Work Phone: [facility] 03-15-2024 09:12-0400 Respiratory rate 16 /min Dr. Adrienne Byers Work Phone: [facility] 03-15-2024 09:12-0400 SaO2% (BldA) [Mass fraction] 96 % Dr. Adrienne Byers Work Phone: [facility] 03-15-2024 09:12-0400 Systolic blood pressure 122 mm[Hg] Dr. Adrienne Byers Work Phone: [facility] 03-14-2024 14:00-0400 Body mass index (BMI) [Ratio] 19.8 kg/m2 Dr. Adrienne Byers Work Phone: [facility] 03-14-2024 14:00-0400 Body weight 59.[address] Adrienne Byers Work Phone: [facility] 03-08-2024 12:02-0400 Body height 172.[address] Adrienne Byers Work Phone: [facility] 02-29-2024 09:30-0400 Body temperature 98.5 [degF] Dr. Adrienne Byers Work Phone: [facility] 02-29-2024 09:30-0400 Diastolic blood pressure 63 mm[Hg] Dr. Adrienne Byers Work Phone: [facility] 02-29-2024 09:30-0400 Heart rate 73 /min Dr. Adrienne Byers Work Phone: [facility] 02-29-2024 09:30-0400 Respiratory rate 16 /min Dr. Adrienne Byers Work Phone: [facility] 02-29-2024 09:30-0400 SaO2% (BldA) [Mass fraction] 95 % Dr. Adrienne Byesr Work Phone: [facility] 02-29-2024 09:30-0400 Systolic blood pressure 118 mm[Hg] Dr. Adrienne Byers Work Phone: [facility] 02-26-2024 22:00-0400 Inhaled oxygen flow rate 2 L/min Dr. Adrienne Byers Work Phone: [facility] 02-25-2024 13:30-0400 Body height 172.[address] Adrienne Byers Work Phone: [facility] 02-25-2024 13:30-0400 Body weight 58.[address] Adrienne Byers Work Phone: [facility] 02-22-2024 11:00-0400 Body mass index (BMI) [Ratio] 19.5 kg/m2 Dr. Adrienne Byers Work Phone: [facility] 02-21-2024 19:53-0400 Body temperature 98.2 [degF] Dr. Adrienne Byers Work Phone: [facility] 02-21-2024 19:53-0400 Diastolic blood pressure 45 mm[Hg] Dr. Adrienne Byers Work Phone: [facility] 02-21-2024 19:53-0400 Heart rate 66 /min Dr. Adrienne Byers Work Phone: [facility] 02-21-2024 19:53-0400 Respiratory rate 20 /min Dr. Adrienne Byers Work Phone: [facility] 02-21-2024 19:53-0400 SaO2% (BldA) [Mass fraction] 97 % Dr. Adrienne Byers Work Phone: [facility] 02-21-2024 19:53-0400 Systolic blood pressure 105 mm[Hg] Dr. Adrienne Byers Work Phone: [facility] 02-21-2024 15:33-0400 Body mass index (BMI) [Ratio] 20.2 kg/m2 Dr. Adrienne Byers Work Phone: [facility] 02-21-2024 15:33-0400 Body weight 60.[address] Adrienne Byers Work Phone: [facility] 02-21-2024 15:32-0400 Body height 172.[address] Adrienne Byers Work Phone: [facility] 02-19-2024 18:33-0400 Body temperature 98.3 [degF] [facility] 02-19-2024 18:33-0400 Diastolic blood pressure 74 mm[Hg] [facility] 02-19-2024 18:33-0400 Heart rate 76 /min [facility] 02-19-2024 18:33-0400 Respiratory rate 16 /min [facility] 02-19-2024 18:33-0400 SaO2% (BldA) [Mass fraction] 96 % [facility] 02-19-2024 18:33-0400 Systolic blood pressure 127 mm[Hg] [facility] 02-19-2024 15:07-0400 Body height 172.72 cm [facility] 02-19-2024 15:07-0400 Body mass index (BMI) [Ratio] 19.8 kg/m2 [facility] 02-19-2024 15:07-0400 Body weight 59.23 kg [facility] 12-08-2023 18:27-0500 Diastolic blood pressure 66 mm[Hg] Dr. Adrienne Byers Work Phone: [facility] 12-08-2023 18:27-0500 Heart rate 77 /min Dr. Adrienne Byers Work Phone: [facility] 12-08-2023 18:27-0500 Respiratory rate 16 /min Dr. Adrienne Byers Work Phone: [facility] 12-08-2023 18:27-0500 SaO2% (BldA) [Mass fraction] 99 % Dr. Adrienne Byers Work Phone: [facility] 12-08-2023 18:27-0500 Systolic blood pressure 118 mm[Hg] Dr. Adrienne Byers Work Phone: [facility] 12-08-2023 15:46-0500 Body mass index (BMI) [Ratio] 20.7 kg/m2 Dr. Adrienne Byers Work Phone: [facility] 12-08-2023 15:46-0500 Body weight 61.[address] Adrienne Byers Work Phone: [facility] 12-08-2023 13:03-0500 Body height 172.[address] Adrienne Byers Work Phone: [facility] 12-08-2023 13:03-0500 Body temperature 96.7 [degF] Dr. Adrienne Byers Work Phone: [facility] 10-12-2023 13:31-0500 Body mass index (BMI) [Ratio] 21.1 kg/m2 Dr. Adrienne Byers Work Phone: [facility] 10-12-2023 08:40-0500 Body temperature 97.8 [degF] Dr. Adrienne Byers Work Phone: [facility] 10-12-2023 08:40-0500 Diastolic blood pressure 67 mm[Hg] Dr. Adrienne Byers Work Phone: [facility] 10-12-2023 08:40-0500 Heart rate 60 /min Dr. Adrienne Byers Work Phone: [facility] 10-12-2023 08:40-0500 Respiratory rate 14 /min Dr. Adrienne Byers Work Phone: [facility] 10-12-2023 08:40-0500 SaO2% (BldA) [Mass fraction] 100 % Dr. Adrienne Byers Work Phone: [facility] 10-12-2023 08:40-0500 Systolic blood pressure 143 mm[Hg] Dr. Adrienne Byers Work Phone: [facility] 10-12-2023 06:00-0500 Body weight 63.[address] Adrienne Byers Work Phone: [facility] 10-07-2023 15:14-0500 Body height 172.[address] Adrienne Byers Work Phone: [facility] 10-07-2023 15:04-0500 Diastolic blood pressure 93 mm[Hg] Dr. Adrienne Byers Work Phone: [facility] 10-07-2023 15:04-0500 Heart rate 61 /min Dr. Adrienne Byers Work Phone: [facility] 10-07-2023 15:04-0500 Respiratory rate 18 /min Dr. Adrienne Byers Work Phone: [facility] 10-07-2023 15:04-0500 SaO2% (BldA) [Mass fraction] 97 % Dr. Adrienne Byers Work Phone: [facility] 10-07-2023 15:04-0500 Systolic blood pressure 107 mm[Hg] Dr. Adrienne Byers Work Phone: [facility] 10-07-2023 13:04-0500 Body height 172.[address] Adrienne Byers Work Phone: [facility] 10-07-2023 13:04-0500 Body mass index (BMI) [Ratio] 21.2 kg/m2 Dr. Adrienne Byers Work Phone: [facility] 10-07-2023 13:04-0500 Body weight 63.[address] Adrienne Byers Work Phone: [facility] 10-07-2023 12:35-0500 Body temperature 97.8 [degF] Dr. Adrienne Byers Work Phone: [facility] 10-07-2023 09:42-0500 Diastolic blood pressure 47 mm[Hg] Dr. Adrienne Byers Work Phone: [facility] 10-07-2023 09:42-0500 Heart rate 75 /min Dr. Adrienne Byers Work Phone: [facility] 10-07-2023 09:42-0500 Systolic blood pressure 103 mm[Hg] Dr. Adrienne Byers Work Phone: [facility] 10-06-2023 16:00-0500 Body temperature 97.7 [degF] Dr. Adrienne Byers Work Phone: [facility] 10-06-2023 16:00-0500 Respiratory rate 14 /min Dr. Adrienne Byers Work Phone: [facility] 10-06-2023 16:00-0500 SaO2% (BldA) [Mass fraction] 97 % Dr. Adrienne Byers Work Phone: [facility] 10-06-2023 15:02-0500 Body weight 61.[address] Adrienne Byers Work Phone: [facility] 10-05-2023 11:08-0500 Body mass index (BMI) [Ratio] 20.5 kg/m2 Dr. Adrienne Byers Work Phone: [facility] 10-01-2023 14:27-0500 Body mass index (BMI) [Ratio] 20.8 kg/m2 Dr. Adrienne Byers Work Phone: [facility] 10-01-2023 13:40-0500 Body temperature 98.1 [degF] Dr. Adrienne Byers Work Phone: [facility] 10-01-2023 13:40-0500 Diastolic blood pressure 68 mm[Hg] Dr. Adrienne Byers Work Phone: [facility] 10-01-2023 13:40-0500 Heart rate 65 /min Dr. Adrienne Byers Work Phone: [facility] 10-01-2023 13:40-0500 Respiratory rate 18 /min Dr. Adrienne Byers Work Phone: [facility] 10-01-2023 13:40-0500 SaO2% (BldA) [Mass fraction] 97 % Dr. Adrienne Byers Work Phone: [facility] 10-01-2023 13:40-0500 Systolic blood pressure 138 mm[Hg] Dr. Adrienne Byers Work Phone: [facility] 09-29-2023 14:06-0500 Body height 170.[address] Adrienne Byers Work Phone: [facility] 09-29-2023 14:06-0500 Body weight 60.[address] Adrienne Byers Work Phone: [facility] 09-28-2023 22:00-0500 Diastolic blood pressure 77 mm[Hg] [facility] 09-28-2023 22:00-0500 Heart rate 63 /min [facility] 09-28-2023 22:00-0500 Respiratory rate 18 /min [facility] 09-28-2023 22:00-0500 SaO2% (BldA) [Mass fraction] 99 % [facility] 09-28-2023 22:00-0500 Systolic blood pressure 152 mm[Hg] [facility] 09-28-2023 20:41-0500 Body height 170.18 cm [facility] 09-28-2023 20:41-0500 Body mass index (BMI) [Ratio] 21.4 kg/m2 [facility] 09-28-2023 20:41-0500 Body weight 61.9 kg [facility] 09-28-2023 20:00-0500 Body temperature 98.1 [degF] [facility] 08-18-2023 12:08-0400 Body temperature 98.6 [degF] JAXON KUHN MD [facility] 08-18-2023 12:08-0400 Diastolic Blood Pressure Non-Invasive 63 1 JAXON KUHN MD [facility] 08-18-2023 12:08-0400 Heart rate 73 /min JAXON KUHN MD [facility] 08-18-2023 12:08-0400 Respiratory rate 16 /min JAXON KUHN MD [facility] 08-18-2023 12:08-0400 Systolic Blood Pressure Non-Invasive 94 1 JAXON KUHN MD [facility] 08-11-2023 06:42-0400 Body temperature 98.24 [degF] JAXON KUHN MD [facility] 08-11-2023 06:42-0400 Diastolic Blood Pressure Non-Invasive 61 1 JAXON KUHN MD [facility] 08-11-2023 06:42-0400 Heart rate 61 /min JAXON KUHN MD [facility] 08-11-2023 06:42-0400 Respiratory rate 18 /min JAXON KUHN MD [facility] 08-11-2023 06:42-0400 Systolic Blood Pressure Non-Invasive 106 1 JAXON KUHN MD [facility] 08-04-2023 12:09-0400 Body height 172.7 cm JAXON KUHN MD [facility] 08-04-2023 12:09-0400 Body temperature 98.6 [degF] JAXON KUHN MD [facility] 08-04-2023 12:09-0400 Body weight 63 kg JAXON KUHN MD [facility] 08-04-2023 12:09-0400 Diastolic Blood Pressure Non-Invasive 60 1 JAXON KUHN MD [facility] 08-04-2023 12:09-0400 Heart rate 60 /min JAXON KUHN MD [facility] 08-04-2023 12:09-0400 Respiratory rate 18 /min JXAON KUHN MD [facility] 08-04-2023 12:09-0400 Systolic Blood Pressure Non-Invasive 104 1 JAXON KUHN MD [facility] 05-12-2023 13:28-0400 Body height 172.7 cm Ghazala Gusman MD Work Phone: [facility] 05-12-2023 13:28-0400 Body weight 62.14 kg Ghazala Gusman MD Work Phone: [facility] 05-12-2023 13:28-0400 Diastolic blood pressure 57 mm[Hg] Ghazala Gusman MD Work Phone: [facility] 05-12-2023 13:28-0400 Heart rate 73 /min Ghazala Gusman MD Work Phone: [facility] 05-12-2023 13:28-0400 Respiratory rate 20 /min Ghazala Gusman MD Work Phone: [facility] 05-12-2023 13:28-0400 SaO2% (BldA) [Mass fraction] 97 % Ghazala Gusman MD Work Phone: [facility] 05-12-2023 13:28-0400 Systolic blood pressure 102 mm[Hg] Ghazala Gusman MD Work Phone: [facility] 08-20-2022 00:26-0400 Diastolic blood pressure 33 mm[Hg] DR AKIN SALGUERO DO [facility] 08-20-2022 00:26-0400 Heart rate 60 /min DR AKIN SALGUERO DO [facility] 08-20-2022 00:26-0400 Respiratory rate 16 /min DR AKIN SALGUERO DO [facility] 08-20-2022 00:26-0400 Systolic blood pressure 102 mm[Hg] DR AKIN SALGUERO DO [facility] 08-20-2022 00:09-0400 Diastolic blood pressure 33 mm[Hg] DR AKIN SALGUERO DO [facility] 08-20-2022 00:09-0400 Heart rate 60 /min DR AKIN SALGUERO DO [facility] 08-20-2022 00:09-0400 Reason For Taking VItal Signs DR AKIN SALGUERO DO [facility] 08-20-2022 00:09-0400 Respiratory rate 16 /min DR AKIN SALGUERO DO [facility] 08-20-2022 00:09-0400 Systolic blood pressure 102 mm[Hg] DR AKIN SALGUERO DO [facility] 08-19-2022 23:40-0400 Diastolic blood pressure 70 mm[Hg] DR AKIN SALGUERO DO [facility] 08-19-2022 23:40-0400 Heart rate 60 /min DR AKNI SALGUERO DO [facility] 08-19-2022 23:40-0400 Mean blood pressure 79 mm[Hg] DR AKIN SALGUERO DO [facility] 08-19-2022 23:40-0400 Respiratory rate 12 /min DR AKIN SALGUERO DO [facility] 08-19-2022 23:40-0400 Systolic blood pressure 96 mm[Hg] DR AKIN SALGUERO DO [facility] 08-19-2022 15:07-0400 Body temperature 98.78 [degF] DR AKIN SALGUERO DO [facility] 06-23-2022 15:16-0400 Body height 172.7 cm Sherif Ramirez MD Work Phone: [facility] 06-23-2022 15:16-0400 Body weight 65.32 kg Sherif Ramirez MD Work Phone: [facility] 06-23-2022 15:16-0400 Diastolic blood pressure 64 mm[Hg] Sherif Ramirez MD Work Phone: [facility] 06-23-2022 15:16-0400 Heart rate 75 /min Sherif Ramirez MD Work Phone: [facility] 06-23-2022 15:16-0400 SaO2% (BldA) [Mass fraction] 97 % Sherif Ramirez MD Work Phone: [facility] 06-23-2022 15:16-0400 Systolic blood pressure 116 mm[Hg] Sherif Ramirez MD Work Phone: [facility] 06-04-2022 13:42-0400 Diastolic blood pressure 67 mm[Hg] Ghazala Gusman MD Work Phone: [facility] 06-04-2022 13:42-0400 Heart rate 77 /min Ghazala Gusman MD Work Phone: [facility] 06-04-2022 13:42-0400 SaO2% (BldA) [Mass fraction] 98 % Ghazala Gusman MD Work Phone: [facility] 06-04-2022 13:42-0400 Systolic blood pressure 115 mm[Hg] Ghazala Gusman MD Work Phone: [facility] 05-22-2022 15:55-0400 Diastolic blood pressure 60 mm[Hg] NOREEN HICKS MD [facility] 05-22-2022 15:55-0400 Heart rate 60 /min NOREEN HICKS MD [facility] 05-22-2022 15:55-0400 Respiratory rate 16 /min NOREEN HICKS MD [facility] 05-22-2022 15:55-0400 Systolic blood pressure 130 mm[Hg] NOREEN HICKS MD [facility] 05-22-2022 15:45-0400 Diastolic blood pressure 60 mm[Hg] NOREEN HICKS MD [facility] 05-22-2022 15:45-0400 Heart rate 60 /min NOREEN HICKS MD [facility] 05-22-2022 15:45-0400 Respiratory rate 11 /min NOREEN HICKS MD [facility] 05-22-2022 15:45-0400 Systolic blood pressure 130 mm[Hg] NOREEN HICKS MD [facility] 05-22-2022 15:30-0400 Diastolic blood pressure 50 mm[Hg] NOREEN HICKS MD [facility] 05-22-2022 15:30-0400 Heart rate 60 /min NOREEN HICKS MD [facility] 05-22-2022 15:30-0400 Respiratory rate 12 /min NOREEN HICKS MD [facility] 05-22-2022 15:30-0400 Systolic blood pressure 135 mm[Hg] NOREEN HICKS MD [facility] 05-22-2022 12:54-0400 Body weight 72.4 kg NOREEN HICKS MD [facility] 05-22-2022 12:46-0400 Body temperature 100.22 [degF] NOREEN HICKS MD [facility] 05-22-2022 12:46-0400 Heart rate 89 /min NOREEN HICKS MD [facility] 04-25-2022 23:34-0400 Body temperature 98.24 [degF] [facility] 04-25-2022 23:34-0400 Diastolic blood pressure 66 mm[Hg] NATAN REICHFIELD DO [facility] 04-25-2022 23:34-0400 Heart rate 71 /min [facility] 04-25-2022 23:34-0400 Systolic blood pressure 122 mm[Hg] NATAN REICHFIELD DO [facility] 04-03-2022 15:58-0400 diastolic 56 mm[Hg] DR JAC CHRISTENSEN MD [facility] 04-03-2022 15:58-0400 Heart rate 53 /min DR JAC CHRISTENSEN MD [address] [place] [address] 04-03-2022 15:58-0400 systolic 98 mm[Hg] DR JAC CHRISTENSEN MD [address] [place] [address] 04-03-2022 14:50-0400 Body temperature 98.06 [degF] DR JAC CHRISTENSEN MD [address] [place] [address] 04-03-2022 14:50-0400 diastolic 60 mm[Hg] DR JAC CHRISTENSEN MD [address] [place] [address] 04-03-2022 14:50-0400 Heart rate 62 /min DR JAC CHRISTENSEN MD [address] [place] [address] 04-03-2022 14:50-0400 Respiratory rate 18 /min DR JAC CHRISTENSEN MD [facility] 04-03-2022 14:50-0400 systolic 105 mm[Hg] DR JAC CHRISTENSEN MD [address] [place] [address] 04-02-2022 16:13-0400 Diastolic blood pressure 56 mm[Hg] DR JAC CHRISTENSEN MD [address] [place] [address] 04-02-2022 16:13-0400 Heart rate 60 /min DR JAC CHRISTENSEN MD [address] [place] [address] 04-02-2022 16:13-0400 Mean blood pressure 72 mm[Hg] DR JAC CHRISTENSEN MD [address] [place] [address] 04-02-2022 16:13-0400 Respiratory rate 18 /min DR JAC CHRISTENSEN MD [facility] 04-02-2022 16:13-0400 Systolic blood pressure 103 mm[Hg] DR JAC CHRISTENSEN MD [address] [place] [address] 04-02-2022 14:54-0400 diastolic 51 mm[Hg] DR JAC CHRISTENSEN MD [address] [place] [address] 04-02-2022 14:54-0400 Heart rate 67 /min DR JAC CHRISTENSEN MD [address] [place] [address] 04-02-2022 14:54-0400 Respiratory rate 18 /min DR JAC CHRISTENSEN MD [address] [place] [address] 04-02-2022 14:54-0400 systolic 101 mm[Hg] DR JAC CHRISTENSEN MD [facility] 12-25-2021 16:07-0500 Body temperature 97.52 [degF] MITCHELL MARY MD [facility] 12-25-2021 16:07-0500 Diastolic Blood Pressure NBP 46 1 MITCHELL MARY MD [address] [place] [address] 12-25-2021 16:07-0500 Heart rate 70 /min MITCHELL MARY MD [facility] 12-25-2021 16:07-0500 Mean blood pressure 58 mm[Hg] MITCHELL MARY MD [address] [place] [address] 12-25-2021 16:07-0500 Reason For Taking VItal Signs MITCHELL MARY MD [facility] 12-25-2021 16:07-0500 Respiratory rate 16 /min MITCHELL MARY MD [facility] 12-25-2021 16:07-0500 Systolic Blood Pressure NBP 94 1 MITCHELL MARY MD [facility] 12-25-2021 11:52-0500 Heart rate 75 /min MITCHELL MARY MD [facility] 12-25-2021 11:52-0500 Reason For Taking VItal Signs MITCHELL MARY MD [facility] 12-25-2021 11:43-0500 Heart rate 67 /min MITCHELL MARY MD [facility] 12-25-2021 11:43-0500 Reason For Taking VItal Signs MITCHELL MARY MD [facility] 12-25-2021 10:58-0500 Body temperature 98.06 [degF] MITCHELL MARY MD [facility] 12-25-2021 10:58-0500 Diastolic Blood Pressure NBP 52 1 MITCHELL MARY MD [facility] 12-25-2021 10:58-0500 Systolic Blood Pressure NBP 115 1 MITCHELL MARY MD [facility] 12-25-2021 08:44-0500 Heart rate 74 /min MITCHELL MARY MD [address] [place] [address] 12-25-2021 06:53-0500 Body temperature 98.24 [degF] MITCHELL MARY MD [address] [place] [address] 12-25-2021 06:53-0500 Diastolic Blood Pressure NBP 47 1 MITCHELL MARY MD [address] [place] [address] 12-25-2021 06:53-0500 Systolic Blood Pressure NBP 118 1 MITCHELL MARY MD [address] 12-24-2021 23:39-0500 Mean blood pressure 67 mm[Hg] MITCHELL MARY MD [address] [place] [address] 12-24-2021 23:10-0500 Body temperature 96.8 [degF] MITCHELL MARY MD [address] [place] [address] 12-24-2021 19:33-0500 Respiratory rate 20 /min MITCHELL MARY MD [address] [place] [address] 12-24-2021 18:43-0500 Diastolic blood pressure 54 mm[Hg] MITCHELL MARY MD [address] [place] [address] 12-24-2021 18:43-0500 Respiratory rate 20 /min MITCHELL MARY MD [facility] 12-24-2021 18:43-0500 Systolic blood pressure 110 mm[Hg] MITCHELL MARY MD [address] [place] [address] 12-24-2021 14:39-0500 Diastolic blood pressure 58 mm[Hg] MITCHELL MARY MD [facility] 12-24-2021 14:39-0500 Systolic blood pressure 112 mm[Hg] MITCHELL MARY MD [address] [place] [address] 12-24-2021 10:50-0500 Diastolic blood pressure 62 mm[Hg] MITCHELL MARY MD [facility] 12-24-2021 10:50-0500 Systolic blood pressure 128 mm[Hg] MITCHELL MARY MD [address] [place] [address] 12-24-2021 08:09-0500 Heart rate 76 /min MITCHELL MARY MD [address] [place] [address] 12-24-2021 06:38-0500 Body temperature 97.52 [degF] MITCHELL MARY MD [facility] 12-24-2021 04:49-0500 Body temperature 97.34 [degF] MITCHELL MARY MD [address] [place] [address] 12-24-2021 04:49-0500 Mean blood pressure 92 mm[Hg] MITCHELL MARY MD [facility] 12-24-2021 02:11-0500 Body height 172.7 cm MITCHELL MARY MD [facility] 12-24-2021 02:11-0500 Body weight 71.4 kg MITCHELL MARY MD [facility] 12-24-2021 02:11-0500 Body weight 23.94 kg/m2 MITCHELL MARY MD [facility] 12-24-2021 02:10-0500 Body weight 71.4 kg MITCHELL MARY MD [facility] 12-24-2021 01:58-0500 Mean blood pressure 116 mm[Hg] MITCHELL MARY MD [facility] 12-23-2021 23:33-0500 Diastolic blood pressure 65 mm[Hg] CATHY FROMMELT DO [facility] 12-23-2021 23:33-0500 Heart rate 73 /min CATHY FROMMELT DO [facility] 12-23-2021 23:33-0500 Respiratory rate 24 /min CATHY FROMMELT DO [facility] 12-23-2021 23:33-0500 Systolic blood pressure 129 mm[Hg] CATHY FROMMELT DO [facility] 12-23-2021 23:00-0500 Diastolic blood pressure 96 mm[Hg] CATHY FROMMELT DO [facility] 12-23-2021 23:00-0500 Heart rate 75 /min CATHY FROMMELT DO [facility] 12-23-2021 23:00-0500 Respiratory rate 17 /min CATHY FROMMELT DO [facility] 12-23-2021 23:00-0500 Systolic blood pressure 136 mm[Hg] CATHY FROMMELT DO [facility] 12-23-2021 22:36-0500 Diastolic blood pressure 71 mm[Hg] CATHY FROMMELT DO [facility] 12-23-2021 22:36-0500 Heart rate 76 /min CATHY FROMMELT DO [facility] 12-23-2021 22:36-0500 Respiratory rate 24 /min CATHY JOHNSONT DO [facility] 12-23-2021 22:36-0500 Systolic blood pressure 137 mm[Hg] CATHY JOHNSONT DO [facility] 12-23-2021 19:16-0500 Body temperature 98.06 [degF] CATHY JOHNSONT DO [facility] 12-23-2021 19:16-0500 Heart rate 77 /min CATHY GLEZMELT DO [facility] 12-05-2021 11:12-0500 Heart rate 66 /min MARTHA PILLAI MD [facility] 12-05-2021 10:59-0500 Body temperature 97.88 [degF] MARTHA PILLAI MD [facility] 12-05-2021 10:59-0500 Diastolic blood pressure 52 mm[Hg] MARTHA PILLAI MD [facility] 12-05-2021 10:59-0500 Heart rate 66 /min MARTHA PILLAI MD [facility] 12-05-2021 10:59-0500 Mean blood pressure 67 mm[Hg] MARTHA PILLAI MD [facility] 12-05-2021 10:59-0500 Systolic blood pressure 98 mm[Hg] MARTHA PILLAI MD [facility] 12-05-2021 08:51-0500 Heart rate 68 /min MARTHA PILLAI MD [facility] 12-05-2021 08:07-0500 Body temperature 97.34 [degF] MARTHA PILLAI MD [facility] 12-05-2021 08:07-0500 Diastolic blood pressure 56 mm[Hg] MARTHA PILLAI MD [facility] 12-05-2021 08:07-0500 Heart rate 63 /min MARTHA PILLAI MD [facility] 12-05-2021 08:07-0500 Mean blood pressure 70 mm[Hg] MARTHA PILLAI MD [facility] 12-05-2021 08:07-0500 Reason For Taking VItal Signs MARTHA PILLAI MD [facility] 12-05-2021 08:07-0500 Respiratory rate 18 /min MARTHA PILLAI MD [facility] 12-05-2021 08:07-0500 Systolic blood pressure 98 mm[Hg] MARTHA PILLAI MD [facility] 12-05-2021 04:00-0500 Diastolic blood pressure 60 mm[Hg] MARTHA PILLAI MD [facility] 12-05-2021 04:00-0500 Mean blood pressure 71 mm[Hg] MARTHA PILLAI MD [facility] 12-05-2021 04:00-0500 Reason For Taking VItal Signs MARTHA PILLAI MD [facility] 12-05-2021 04:00-0500 Systolic blood pressure 94 mm[Hg] MARTHA PILLAI MD [facility] 12-04-2021 21:57-0500 Body temperature 98.24 [degF] MARTHA PILLAI MD [facility] 12-04-2021 21:57-0500 Reason For Taking VItal Signs MARTHA PILLAI MD [facility] 12-04-2021 21:57-0500 Respiratory rate 18 /min MARTHA PILLAI MD [facility] 12-04-2021 17:12-0500 Diastolic Blood Pressure NBP 44 1 MARTHA PILLAI MD [facility] 12-04-2021 17:12-0500 Mean blood pressure 60 mm[Hg] MARTHA PILLAI MD [facility] 12-04-2021 17:12-0500 Systolic Blood Pressure NBP 95 1 MARTHA PILLAI MD [facility] 12-04-2021 16:08-0500 Diastolic Blood Pressure NBP 47 1 MARTHA PILLAI MD [facility] 12-04-2021 16:08-0500 Systolic Blood Pressure NBP 100 1 MARTHA PILLAI MD [facility] 12-04-2021 02:01-0500 Diastolic Blood Pressure NBP 50 1 MARTHA PILLAI MD [facility] 12-04-2021 02:01-0500 Mean blood pressure 64 mm[Hg] MARTHA PILLAI MD [facility] 12-04-2021 02:01-0500 Systolic Blood Pressure NBP 96 1 MARTHA PILLAI MD [facility] 12-03-2021 19:51-0500 Mean blood pressure 62 mm[Hg] MARTHA PILLAI MD [facility] 12-03-2021 10:50-0500 Heart rate 67 /min MARTHA PILLAI MD [facility] 12-01-2021 13:15-0500 SaO2% (BldA) [Mass fraction] 93.7 % MARTHA PILLAI MD [facility] 11-29-2021 23:28-0500 Body temperature 97.7 [degF] MARTHA PILLAI MD [facility] 11-29-2021 11:04-0500 diastolic 40 mm[Hg] MARTHA PILLAI MD [facility] 11-29-2021 11:04-0500 systolic 82 mm[Hg] MARTHA PILLAI MD [facility] 11-29-2021 11:04-0500 systolic 80 mm[Hg] MARTHA PILLAI MD [facility] 11-26-2021 07:40-0500 SaO2% (BldA) [Mass fraction] 95.0 % MARTHA PILLAI MD [facility] 11-25-2021 04:06-0500 SaO2% (BldA) [Mass fraction] 95.9 % MARTHA PILLAI MD [facility] 11-22-2021 04:04-0500 Body height 162 cm MARTHA PILLAI MD [facility] 11-22-2021 04:04-0500 Body weight 76.8 kg MARTHA PILLAI MD [facility] 11-22-2021 04:04-0500 Body weight 29.26 kg/m2 MARTHA PILLAI MD [facility] 11-22-2021 02:05-0500 Diastolic blood pressure 55 mm[Hg] JAXON KUHN MD [facility] 11-22-2021 02:05-0500 Heart rate 74 /min JAXON KUHN MD [facility] 11-22-2021 02:05-0500 Respiratory rate 12 /min JAXON KUHN MD [facility] 11-22-2021 02:05-0500 Systolic blood pressure 88 mm[Hg] JAXON KUHN MD [facility] 11-22-2021 01:34-0500 Diastolic blood pressure 49 mm[Hg] JAXON KUHN MD [facility] 11-22-2021 01:34-0500 Systolic blood pressure 93 mm[Hg] JAXON KUHN MD [facility] 11-22-2021 01:30-0500 Heart rate 88 /min JAXON KUHN MD [facility] 11-22-2021 01:30-0500 Respiratory rate 16 /min JAXON KUHN MD [facility] 11-22-2021 01:15-0500 Diastolic blood pressure 58 mm[Hg] JAXON KUHN MD [facility] 11-22-2021 01:15-0500 Heart rate 101 /min JAXON KUHN MD [facility] 11-22-2021 01:15-0500 Respiratory rate 15 /min JAXON KUHN MD [facility] 11-22-2021 01:15-0500 Systolic blood pressure 100 mm[Hg] JAXON KUHN MD [facility] 11-22-2021 00:29-0500 SaO2% (BldA) [Mass fraction] 100 % JAXON KUHN MD [facility] 11-21-2021 21:58-0500 Body temperature 98.42 [degF] JAXON KUHN MD [facility] 11-21-2021 21:58-0500 Heart rate 130 /min JAXON KUHN MD [facility] Encounters Encounter Date Encounter Type Care Provider Facility Start: 06-01-2025 End: 06-01-2025 Subsequent hospital visit by physician Marci Lopez Work Phone: [facility] Radiology Comment on above: Chronic systolic (co ngestive) heart failure (HCC) Start: 05-30-2025 End: 05-30-2025 Patient encounter procedure Rosa ROWLEY -[facility] Work Phone: Start: 05-30-2025 End: 05-30-[address] Marci Lopez DO Work Phone: -[facility] Start: 05-29-2025 End: 05-29-2025 Patient encounter procedure Kaykay ROWLEY -[facility] Work Phone: Start: 05-29-2025 End: 05-29-[address] Marci Lopez DO Work Phone: -[facility] Start: 05-22-2025 End: 05-22-2025 Dr. Marci Lopez DO Work Phone: -Emergency Department Work Phone: Start: 05-22-2025 End: 05-22-2025 Emergency department patient visit Dr. Marci Lopez DO Work Phone: -Emergency Department Start: 05-21-2025 End: 05-21-2025 Specialty Pharmacy Wesley Hayes [facility] Work Phone: [facility] Specialty Pharm[facility] Comment on above: SPP Neurology - Medi cation Refill (Austedo XR) Start: 05-03-2025 End: 05-03-[address] Marci Lopez DO Work Phone: [facility] Work Phone: Start: 05-03-2025 End: 05-03-[address] Danish Tavarez MD -[facility] Work Phone: Start: 05-03-2025 End: 05-03[facility] Start: 04-25-2025 Non-patient / Non-visit Shan Lockett DO -[facility] Start: 04-25-2025 End: 04-25-2025 Admission to same day surgery center Shan Lockett DO -Endoscopy Work Phone: Start: 04-25-2025 End: 04-25-2025 Shan Lockett DO -Endoscopy Work Phone: Start: 04-25-2025 End: 04-25-[address] Marci Lopez DO Work Phone: [facility] Work Phone: Start: 04-23-2025 End: 04-23-2025 Specialty Pharmacy Wesley Hayes [facility] Work Phone: [facility] Specialty Pharm[facility] Comment on above: SPP Neurology - Medi cation Refill (Autedo ) Start: 04-20-2025 End: 05-03-2025 Evaluation and management of inpatient Dr. Alonso Marte MD -Transitional Care Unit Start: 04-20-2025 End: 05-03-2025 Dr. Alonso Marte MD -Transitional Care U nit Start: 04-20-2025 Non-patient / Non-visit Dr. Maximo Orosco DO -[facility] Work Phone: Start: 04-20-2025 Dr. Maximo Orosco DO [facility] Work Phone: Start: 04-19-2025 End: 04-20-2025 ambulatory Marci Lopez Facility:[facility] Start: 04-19-2025 End: 04-20-2025 Evaluation and management of inpatient Dr. Maximo Orosco DO -[facility] Work Phone: Start: 04-19-2025 End: 04-20-[address] Marci Lopez DO Work Phone: [facility] Work Phone: Start: 04-19-2025 End: 04-20-2025 Dr. [facility]imo [facility] Work Phone: Start: 04-19-2025 End: 04-19-2025 Emergency department patient visit Dr. Marci Lopez DO Work Phone: -Emergency Department Work Phone: Start: 04-19-2025 End: 04-19-[address] Marci Lopez DO Work Phone: [facility] Work Phone: Start: 04-19-2025 End: 04-19-[address] [facility] Start: 04-19-2025 End: 04-19-2025 Dr. Danish Tavarez MD -[facility] Work Phone: Start: 04-04-2025 ambulatory LEYLA MURPHY [facility] Start: 04-04-2025 End: 04-04-2025 Subsequent hospital visit by physician [facility] (1.5t) Radiology Comment on above: Essential tremor [G2 5.0] Start: 04-02-2025 End: 04-02-2025 Subsequent hospital visit by physician [facility] Work Phone: Radiology Comment on above: Presence of cardiac pacemaker [Z95.0] Start: 04-02-2025 End: 04-02-2025 ambulatory LEYLA MURPHY Facility:[facility] Start: 03-28-2025 End: 03-28-2025 ambulatory Trish Lyle [facility] Comment on above: Austedo XR approved Start: 03-28-2025 End: 03-28-2025 E-mail encounter from caregiver Trish Dariela [facility] Start: 03-28-2025 End: 03-28-2025 Telephone encounter Leyla Murphy MD Work Phone: Neurology Comment on above: Patient Question Start: 03-10-2025 End: 03-10-2025 ambulatory Linda Valdez RN [facility] Start: 03-10-2025 End: 03-10-2025 Patient encounter procedure Linda Valdez RN [facility] Start: 03-10-2025 End: 03-10-2025 Dr. Jose Jaime DO -Emergency Departva nt Work Phone: Start: 03-10-2025 End: 03-10-2025 Emergency department patient visit Dr. Marci Lopez DO Work Phone: -Emergency Department Work Phone: Start: 03-09-2025 End: 03-09-2025 Telephone encounter Leyla Murphy MD Work Phone: Neurology Comment on above: Orders (valbenazine (INGREZZA) 40 mg capsule) Start: 03-01-2025 End: 03-01-2025 Telephone encounter Leyla Murphy MD Work Phone: [facility] Start: 02-28-2025 End: 02-28-2025 ambulatory Wesley Hayes [facility] Work Phone: [facility] Start: 02-28-2025 End: 02-28-2025 Patient encounter procedure Wesley Hayes [facility] Work Phone: [facility] Comment on above: [facility] Neurology - Lina tment Referral (Abdiza); Insurance Authorization ([place] Submission Pending) Start: 02-27-2025 End: 02-27-2025 ambulatory LEYLA MURPHY Facility:[facility] Start: 02-27-2025 End: 02-27-2025 Office outpatient visit 40 minutes Leyla Murphy MD Work Phone: Neurology Comment on above: Essential tremor (Pr imary Dx); Dyskinesia, tardive Start: 02-27-2025 End: 02-27-2025 Telephone encounter Leyla Murphy MD Work Phone: Neurology Comment on above: Appointment (MRI Bra in WO IVC) Start: 02-14-2025 End: 02-14-2025 Patient encounter procedure Rosa ROWLEY -[facility] Work Phone: Start: 02-14-2025 End: 02-14-2025 Rosa ROWLEY -[facility] Work Phone: Start: 02-14-2025 End: 02-14-2025 ambulatory Marci Baird John Facility:[facility] Start: 02-13-2025 End: 02-13-2025 Patient encounter procedure Mayte COHEN -[facility] Work Phone: Start: 02-13-2025 End: 02-13-2025 Mayte COHEN -[facility] Work Phone: Start: 02-13-2025 End: 02-13-2025 ambulatory Marci Baird John Facility:[facility] Start: 01-29-2025 End: 01-29-2025 Dr. Danish Tavarez MD -[facility] Work Phone: Start: 01-28-2025 End: 01-29-2025 ambulatory Sari Parra RN [facility] Start: 01-28-2025 End: 01-29-2025 Patient encounter procedure Sari Parra RN [facility] Start: 01-23-2025 End: 01-23-[address] Luigi Tinoco MD -[facility] Work Phone: Start: 01-23-2025 End: 01-23-2025 Dr. Luigi Tinoco MD -[facility] Work Phone: Start: 01-23-2025 End: 01-23-2025 ambulatory [facility] Facility:[facility] Start: 01-22-2025 ambulatory [facility] Fa cility:[facility] Start: 01-22-[address] Kristen Tinoco MD -[facility] Start: 01-22-2025 Dr. Luigi giron MD -[facility] Start: 01-19-2025 End: 01-19-2025 Telephone encounter Leyla Murphy MD Work Phone: Neurology Comment on above: Appointment (Time Ch kamilah: 05/15/2025) Start: 01-19-[address] [facility] Facility:[id number] Start: 01-19-2025 End: 01-19-2025 Subsequent hospital visit by physician [facility] Work Phone: [facility] Comment on above: Solitary pulmonary n odule [R91.1] Start: 01-18-2025 End: 01-18-2025 Patient encounter procedure Kaykay Pena CA -[facility] Work Phone: Start: 01-18-2025 End: 01-18-2025 Kaykay Pena CA -[facility] Work Phone: Start: 01-18-2025 End: 01-18-2025 ambulatory [facility] Facility:[facility] Start: 12-22-2024 ambulatory [facility] Fa cility:[facility] Start: 12-22-2024 End: 12-22-2024 Patient encounter procedure Marci [facility] DO -[facility] Work Phone: Start: 12-22-2024 End: 12-22-2024 ambulatory Marci B[facility] Facility:[facility] Start: 12-19-2024 End: 12-19-2024 Patient encounter procedure Dipti ROWLEY -[facility] Work Phone: Start: 12-19-2024 End: 12-19-2024 [facility] Start: 12-15-2024 End: 12-15-2024 Patient encounter procedure Rosa ROWLEY -Laboratory, Specimen Work Phone: Start: 12-15-2024 End: 12-15-2024 [facility] Start: 12-13-2024 End: 12-13-2024 Subsequent hospital visit by physician Marci Lopez Work Phone: [facility] Pulm Function Test Comment on above: Other forms of dyspn ea Start: 12-13-2024 End: 12-13-2024 [facility] Start: 12-12-2024 End: 12-12-2024 Patient encounter procedure Rosa ROWLEY -[facility] Work Phone: Start: 12-12-2024 End: 12-12-2024 ambulatory Marci Baird John Facility:[facility] Start: 11-28-2024 End: 11-28-[address] Adrienne Christine MD -[facility] Work Phone: Start: 11-28-2024 End: 11-28-2024 ambulatory Marci Brie John Facility:[facility] Start: 11-24-2024 End: 11-24-2024 Telephone encounter Marci John Work Phone: [facility] Clinical Communication Comment on above: Other (Discuss Apppo intment) Start: 11-23-2024 End: 11-23-2024 Patient encounter procedure Rosa ROWLEY -[facility] Work Phone: Start: 11-23-2024 End: 11-23-2024 [facility] Start: 11-18-2024 End: 11-18-2024 Emergency department patient visit Dr. Jose Jaime DO -Emergency Department Work Phone: Start: 11-16-2024 End: 11-16-2024 Telephone encounter Marci Lopez Work Phone: [facility] Comment on above: Appointment Request Start: 11-14-2024 End: 11-14-2024 [facility] Start: 11-14-2024 Registered Recurring Marci Jiménez on DO -Physical Therapy Work Phone: Start: 11-13-2024 End: 11-14-2024 Telephone encounter Ghazala Gusman MD Work Phone: Rehab Medicine Comment on above: Requesting help with spasticity medication. Start: 11-10-2024 End: 11-10-2024 Subsequent hospital visit by physician Pina Isidro Work Phone: [facility] Comment on above: Dizziness and giddin ess Start: 11-10-2024 End: 11-10-2024 ambulatory PINA ISIDRO [facility] Start: 11-07-2024 End: 02-06-2025 Transcribe Orders Pina Isidro [facility] Central Sched uling Comment on above: Dizziness and giddin ess (Primary Dx) Start: 11-02-2024 End: 11-02-2024 Emergency department patient visit Marci Lopez Facility:[facility] Start: 10-30-2024 End: 10-30-[facility] Start: 10-17-2024 End: 10-17-2024 [facility] Start: 10-13-2024 End: 01-12-2025 Transcribe Orders Marci Lopez Work Phone: [facility] Central Scheduling Comment on above: Other forms of dyspn ea (Primary Dx) Start: 10-06-2024 End: 10-06-2024 Telephone encounter Marci Lopez Work Phone: [facility] Comment on above: Other Start: 09-14-2024 End: 09-14-2024 ambulatory Marci Lopez Facility:[facility] Start: 09-09-2024 End: 09-09-2024 Emergency department patient visit Marci Baird John Facility:[facility] Start: 08-28-2024 ambulatory Marci Lopez Fa cility:[facility] Start: 08-25-2024 ambulatory Marci Lopez Fa cility:[facility] Start: 08-25-2024 End: 08-25-2024 ambulatory Adrienne Christine Facility:[facility] Start: 08-13-2024 End: 08-13-2024 Patient encounter procedure Roxanne Boo RT(R) Nuclear Medicine Start: 08-13-2024 End: 08-13-2024 ambulatory Roxanne Boo RT(R) Nuclear Medicine Comment on above: Radiology NM Start: 08-13-2024 End: 08-13-2024 Subsequent hospital visit by physician [facility] Work Phone: Nuclear Medicine Comment on above: Fiorella galan ma [J98.2] Start: 08-05-2024 End: 08-05-2024 ambulatory Dulce Maria Gibson RN [facility] Start: 08-05-2024 End: 08-05-2024 Patient encounter procedure Dulce Maria Gibson RN [facility] Start: 08-04-2024 End: 08-04-2024 ambulatory Anna Zarco RN [facility] Start: 08-04-2024 End: 08-04-2024 Patient encounter procedure Anna Zarco RN [facility] Start: 08-03-2024 End: 08-03-2024 ambulatory Marci Lopez Facility:[facility] Start: 08-01-2024 End: 08-01-2024 ambulatory Marci Lopez Facility:[facility] Start: 07-25-2024 End: 07-25-2024 ambulatory Marci Lopez Facility:[facility] Start: 07-21-2024 End: 07-21-2024 ambulatory Marci Lopez Facility:[facility] Start: 07-21-2024 ambulatory MARTHA PILLAI Facility :[id number] Start: 07-21-2024 End: 07-21-2024 Subsequent hospital visit by physician [facility] Work Phone: [facility] Comment on above: Solitary pulmonary n odule [R91.1] Start: 07-20-2024 End: 10-19-2024 Transcribe Orders Marci Lopez Work Phone: [facility] Outaptient Lab Comment on above: Chronic kidney disea se, stage 3a (HCC) (Primary Dx) Start: 07-19-2024 End: 07-19-2024 ambulatory Marci Lopez Facility:[facility] Start: 07-17-2024 End: 07-17-2024 ambulatory Luigi Tinoco Facility:[facility] Start: 07-11-2024 End: 07-11-2024 [facility] Start: 07-11-2024 End: 07-11-2024 Patient encounter procedure [facility] Start: 07-11-2024 End: 07-11-2024 Telephone encounter Marci John Work Phone: [facility] Clinical Communication Comment on above: Other (Needs call jaci lora from office) Start: 07-10-2024 End: 07-10-2024 ambulatory MARCI JOHN [facility] Start: 07-10-2024 End: 10-09-2024 Subsequent hospital visit by physician Marci Lopez Work Phone: [facility] Radiology Comment on above: Other constipation Other constipation ( Primary Dx) Start: 07-03-2024 End: 07-05-2024 ambulatory Anabell Simms Facility:[facility] Start: 06-28-2024 End: 06-28-2024 Telephone encounter Rick Rodas 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 Work Phone: [facility] [facility] Comment on above: Other ([place] [facility] ) Start: 06-28-2024 End: 06-28-2024 Emergency department patient visit Romeo Padron Facility:[facility] Start: 05-19-2024 End: 05-19-2024 ambulatory ADRIENNE BYERS Facility:B Start: 05-19-2024 End: 05-19-[address] JAC CHRISTENSEN MD [facility] Start: 05-17-2024 End: 05-17-2024 Patient encounter procedure Ghazala Gusman MD Work Phone: Rehab Medicine Comment on above: History of stroke (P rimary Dx); Spasticity Start: 04-07-2024 End: 04-07-2024 Patient encounter procedure ADRIENNE BYERS DO [facility] Start: 04-07-2024 End: 04-07-2024 ambulatory ADRIENNE BYERS DO Facility:B Start: 02-29-2024 End: 03-15-2024 Evaluation and management of inpatient Dr. Adrienne Byers Work Phone: [facility] Start: 02-29-2024 Non-patient / Non-visit Dr. Adrienne Byers Work Phone: [facility] Work Phone: Start: 02-28-2024 Non-patient / Non-visit Dr. Adrienne Byers Work Phone: [facility] Start: 02-28-2024 Non-patient / Non-visit Dr. Adrienne Byers Work Phone: [facility] Work Phone: Start: 02-27-2024 Non-patient / Non-visit Dr. Adrienne Byers Work Phone: [facility] Start: 02-27-2024 Non-patient / Non-visit Dr. Adrienne Byers Work Phone: [facility] Work Phone: Start: 02-26-2024 Non-patient / Non-visit Dr. Adrienne Byers Work Phone: [facility] Start: 02-26-2024 Non-patient / Non-visit Dr. Adrienne Byers Work Phone: [facility] Work Phone: Start: 02-25-2024 Non-patient / Non-visit Dr. Adrienne Byers Work Phone: [facility] Start: 02-25-2024 Non-patient / Non-visit Dr. Adrienne Byers Work Phone: [facility] Work Phone: Start: 02-24-2024 Non-patient / Non-visit Dr. Adrienne Byers Work Phone: [facility] Start: 02-24-2024 Non-patient / Non-visit Dr. Adrienne Byers Work Phone: [facility] Work Phone: Start: 02-23-2024 Non-patient / Non-visit Dr. Adrienne Byers Work Phone: [facility] Start: 02-23-2024 Non-patient / Non-visit Dr. Adrienne Byers Work Phone: [facility] Work Phone: Start: 02-22-2024 Non-patient / Non-visit Dr. Adrienne Byers Work Phone: [facility] Start: 02-22-2024 Non-patient / Non-visit Dr. Adrienne Byers Work Phone: [facility] Work Phone: Start: 02-22-2024 End: 02-22-2024 Non-patient / Non-visit Dr. Adrienne Byers Work Phone: [facility] Work Phone: Start: 02-21-2024 Non-patient / Non-visit Dr. Adrienne Byers Work Phone: [facility] Work Phone: Start: 02-21-2024 End: 02-29-2024 Evaluation and management of inpatient Dr. Adrienne Byers [facility] Work Phone: Start: 02-19-2024 End: 02-19-2024 [facility]: Start: 02-14-2024 End: 02-14-2024 ambulatory ADRIENNE BYERS DO Facility:B Start: 12-27-2023 End: 12-27-2023 ambulatory ADRIENNE BYERS DO Facility:B Start: 12-27-2023 End: 12-27-2023 Patient encounter procedure ADRIENNE BYERS DO [facility] Start: 12-08-2023 End: 12-08-2023 Emergency department patient visit Dr. Adrienne Byers [facility]: Start: 10-28-2023 End: 01-04-2024 ambulatory ADRIENNE BYERS DO Facility:B Start: 10-25-2023 End: 10-25-2023 ambulatory ADRIENNE BYERS DO Facility:B Start: 10-25-2023 End: 10-25-[address] JAC CHRISTENSEN MD [facility] Start: 10-22-2023 ambulatory Sherif Ramirez MD Work Phone: [facility] Comment on above: Occupational Therapy Start: 10-20-2023 End: 10-20-2023 ambulatory Sherif Ramirez MD Work Phone: [facility] Comment on above: Essential tremor (Pr imary Dx); Tremor of left hand Start: 10-20-2023 End: 10-20-2023 Telemedicine consultation with patient Sherif Ramirez MD Work Phone: [facility] Start: 10-12-2023 Non-patient / Non-visit Dr. Adrienne Byers Work Phone: [facility] Work Phone: Start: 10-11-2023 Non-patient / Non-visit Dr. Adrienne Byers Work Phone: [facility] Work Phone: Start: 10-10-2023 Non-patient / Non-visit Dr. Adrienne Byers Work Phone: [facility] Work Phone: Start: 10-09-2023 Non-patient / Non-visit Dr. Adrienne Byers Work Phone: [facility] Work Phone: Start: 10-08-2023 Non-patient / Non-visit Dr. Adrienne Byers Work Phone: [facility] Work Phone: Start: 10-07-2023 End: 10-12-2023 Evaluation and management of inpatient Dr. Adrienne Byers Work Phone: [facility] Work Phone: Start: 10-07-2023 End: 10-12-[address] Adrienne Byers Work Phone: [facility] Work Phone: Start: 10-07-2023 Non-patient / Non-visit Dr. Adrienne Byers Work Phone: [facility] Work Phone: Start: 10-01-2023 End: 10-07-2023 Evaluation and management of inpatient Dr. Adrienne Byers Work Phone: [facility] Start: 10-01-2023 Non-patient / Non-visit Dr. Adrienne Byers Work Phone: [facility] Work Phone: Start: 09-30-2023 Non-patient / Non-visit Dr. Adrienne Byers Work Phone: [facility] Work Phone: Start: 09-30-2023 End: 09-30-[address] Adrienne Byers Work Phone: [facility] Work Phone: Start: 09-29-2023 Non-patient / Non-visit Dr. Adrienne Byers Work Phone: [facility] Work Phone: Start: 09-29-2023 Non-patient / Non-visit Dr. Adrienne Byers Work Phone: [facility] Start: 09-29-2023 Non-patient / Non-visit Dr. 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] Start: 09-21-2023 End: 09-21-2023 Subsequent hospital visit by physician [facility] Start: 09-07-2023 End: 09-07-2023 ambulatory ADRIENNE GAXIOLA Facility:B Start: 09-07-2023 End: 09-07-2023 Patient encounter procedure ADRIENNE BYERS DO [facility] Start: 08-27-2023 ambulatory ADRIENNE Marcial ty:B Start: 08-26-2023 End: 08-26-2023 ambulatory ADRIENNE BYERS DO Facility:B Start: 08-18-2023 End: 08-18-2023 ambulatory ADRIENNE BYERS DO Facility:B Start: 08-18-2023 End: 08-18-2023 SAME DAY STAY JAXON KUHN MD [facility] Start: 08-16-2023 ambulatory ADRIENNE Marcial ty:B Start: 08-11-2023 End: 08-11-2023 ambulatory ADRIENNE BYERS DO Facility:B Start: 08-11-2023 End: 08-11-2023 SAME DAY STAY JAXON KUHN MD [facility] Start: 08-07-2023 End: 08-07-2023 ambulatory ADRIENNE BYERS DO Facility:B Start: 08-04-2023 End: 08-04-2023 Emergency department patient visit JAXON KUHN MD [facility] Start: 07-21-2023 Refill Sherif Ramirez MD Work Phone: [facility] Comment on above: Refill Request Start: 07-13-2023 End: 07-13-2023 ambulatory ADRIENNE BYERS DO Facility:B Start: 07-01-2023 End: 07-01-2023 Office outpatient visit 25 minutes Sherif Ramirez MD Work Phone: [facility] Comment on above: 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); Parkinsonism, unspecified Parkinsonism type (HCC) Start: 06-23-2023 ambulatory ADRIENNE Salazari ty:B Start: 06-09-2023 End: 06-09-[address] JAC CHRISTENSEN MD Facility:B Start: 06-09-2023 End: 06-09-[address] JAC CHRISTENSEN MD [facility] Start: 05-17-2023 End: 05-17-2023 Patient encounter procedure ADRIENNE BYERS DO [facility] Start: 05-17-2023 Telephone encounter Ghazala davis MD [...] Patient encounter procedure DR JAC CHRISTENSEN MD [facility] Start: 11-30-2022 End: 12-04-2022 Outreach Lab ADRIENNE GODWINTON DO [facility] Start: 11-27-2022 End: 11-27-2022 Patient encounter procedure ADRIENNE GODWINTON DO [facility] Start: 11-02-2022 End: 11-06-2022 Outreach Lab ADRIENNE BYERS DO [facility] Start: 10-12-2022 Telephone encounter Ghazala davis MD Work Phone: Rehab Medicine Comment on above: Medication question Start: 10-12-2022 End: 10-12-2022 ambulatory Sherif Ramirez MD Work Phone: [facility] Comment on above: Tremor of left hand Start: 10-12-2022 End: 10-12-2022 Telemedicine consultation with patient Sherif Ramirez MD Work Phone: [facility] Start: 10-05-2022 End: 10-05-[address] LARY WHEAT DO [facility] Start: 09-09-2022 End: 09-09-[address] JAC CHRISTENSEN MD [facility] Start: 08-19-2022 End: 08-20-2022 Emergency department patient visit DR AKIN SALGUERO DO [facility] Start: 08-10-2022 End: 08-10-2022 ambulatory Sherif Ramirez MD Work Phone: [facility] Comment on above: 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); Parkinson disease (HCC); Nocturnal muscle cramp Start: 08-10-2022 End: 08-10-2022 Telemedicine consultation with patient Sherif Ramirez MD Work Phone: [facility] Start: 07-20-2022 End: 07-20-[address] JAC CHRISTENSEN MD [facility] Start: 07-14-2022 End: 01-03-2023 Lab-Standing Order QIANA BAKER MD [facility] Start: 07-08-2022 End: 10-19-2022 Cardiac Rehab MITCHELL MARY MD [facility] Start: 07-01-2022 End: 07-01-[address] JAC CHRISTENSEN MD [facility] Start: 06-29-2022 ambulatory Sherif Ramirez MD Work Phone: [facility] Comment on above: Parkinson Disease pr escription Start: 06-23-2022 End: 06-23-2022 Patient encounter procedure Sherif Ramirez MD Work Phone: [facility] Comment on above: Parkinsonism, unspec ified Parkinsonism type (HCC) (Primary Dx); Tremor of left hand Start: 06-09-2022 End: 06-09-[address] JAC CHRISTENSEN MD [facility] Start: 06-04-2022 End: 06-04-2022 Patient encounter procedure Ghazala Gusman MD Work Phone: Spine Medicine Comment on above: Tremor of left hand (Primary Dx) Start: 06-01-2022 End: 06-01-[address] LARY WHEAT DO [facility] Start: 05-22-2022 End: 05-22-2022 Emergency department patient visit NOREEN HICKS MD [facility] Start: 05-01-2022 Refill Ghazala Gusman MD Work Phone: Rehab Medicine Comment on above: Refill Request Start: 05-01-2022 End: 05-01-[address] JCA CHRISTENSEN MD [facility] Start: 04-25-2022 End: 04-26-2022 Emergency department patient visit NATAN ARRIETA DO [facility] Start: 04-03-2022 End: 04-03-[address] JAC CHRISTENSEN MD [facility] Start: 04-02-2022 End: 04-02-[address] JAC CHRISTENSEN MD [facility] Start: 03-24-2022 End: 03-24-[address] JAC CHRISTENSEN MD [facility] Start: 03-20-2022 End: 03-20-[address] JAC CHRISTENSEN MD [facility] Start: 03-17-2022 End: 03-17-[address] JAC CHRISTENSEN MD [facility] Start: 03-06-2022 End: 03-06-[address] JAC CHRISTENSEN MD [facility] Start: 03-03-2022 End: 03-03-2022 Patient encounter procedure HARISH GIFFORD GEOLOGICAL SAMPLE TESTER-SHEET COMBINING OPERATOR [facility] Start: 02-24-2022 End: 02-24-[address] JAC CHRISTENSEN MD [facility] Start: 02-05-2022 Telephone encounter Ghazala davis MD Work Phone: Spine Medicine Comment on above: Question (medication ) Start: 02-04-2022 End: 02-04-2022 Patient encounter procedure REI ALFONSO GEOLOGICAL SAMPLE TESTER-SHEET COMBINING OPERATOR [facility] Start: 01-03-2022 End: 01-03-2022 Patient encounter procedure REI ALFONSO GEOLOGICAL SAMPLE TESTER-SHEET COMBINING OPERATOR [facility] Start: 12-29-2021 End: 12-29-[address] BHASKAR LEE MD [facility] Start: 12-24-2021 End: 12-25-2021 Evaluation and management of inpatient MITCHELL MARY MD [facility] Start: 12-23-2021 End: 12-24-2021 Emergency department patient visit CATHY MARQUEZ DO [facility] Start: 11-22-2021 End: 12-05-2021 Evaluation and management of inpatient CHRISTINA MARCIAL MD [facility] Start: 11-21-2021 End: 11-22-2021 Emergency department patient visit JAXON KUHN MD [facility] Start: 11-06-2021 End: 11-06-[address] LARY WHEAT DO [facility] Start: 10-08-2021 End: 10-08-[address] LARY WHEAT DO [facility] Start: 09-26-2021 End: 09-26-[address] LARY WHEAT DO [facility] Procedures Date Procedure Procedure Detail Performing Clinician Start: 05-22-2025 Urine microscopy: red cells Dr. Marci beard DO Work Phone: Start: 05-22-2025 Urnls dip stick/tablet reagent auto microscopy Dr. Marci Lopez DO Work Phone: Start: 05-22-2025 Blood count smear mcrscp w/mnl difrntl wbc count Dr. Marci Lopez DO Work Phone: Start: 05-22-[address] Saranya Lopez DO Work Phone: Start: 05-22-2025 Mean corpuscular hemoglobin concentration determination Dr. Marci Lopez DO Work Phone: Start: 05-22-2025 Nucleated red blood cell count procedure Dr. Marci Lopez DO Work Phone: Start: 05-22-2025 Platelet mean volume determination Dr. Jose Lopez DO Work Phone: Start: 05-22-[address] Jose Lopez DO Work Phone: Start: 05-22-2025 Computed tomography of abdomen and pelvis with contrast Dr. Marci Lopez DO Work Phone: Start: 05-22-[address] Marci Lopez DO Work Phone: Start: 05-01-2025 Blood count smear mcrscp w/mnl difrntl wbc count Dr. Marci Lopez DO Work Phone: Start: 05-01-[address] Saranya Lopez DO Work Phone: Start: 05-01-2025 Mean corpuscular hemoglobin concentration determination Dr. Marci Lopez DO Work Phone: Start: 05-01-2025 Nucleated red blood cell count procedure Dr. Marci Lopez DO Work Phone: Start: 05-01-2025 Platelet mean volume determination Dr. Jose Lopez DO Work Phone: Start: 04-25-[address] Marci Lopez DO Work Phone: Start: 04-22-[address] Marci lobo DO Work Phone: Start: 04-22-2025 Total cholesterol:HDL ratio measurement Dr. Marci Lopez DO Work Phone: Start: 04-21-2025 Blood count smear mcrscp w/mnl difrntl wbc count Dr. Marci Lopez DO Work Phone: Start: 04-21-[address] Saranya Lopez DO Work Phone: Start: 04-21-2025 Mean corpuscular hemoglobin concentration determination Dr. Marci Lopez DO Work Phone: Start: 04-21-2025 Nucleated red blood cell count procedure Dr. Marci Lopez DO Work Phone: Start: 04-21-2025 Platelet mean volume determination Dr. Jose Lopez DO Work Phone: Start: 04-20-[address] Saranya Lopez DO Work Phone: Start: 04-20-2025 Mean corpuscular hemoglobin concentration determination Dr. Marci Lopez DO Work Phone: Start: 04-20-2025 Platelet mean volume determination Dr. Jose Lopez DO Work Phone: Start: 04-19-2025 Urine microscopy: red cells Dr. Marci beard DO Work Phone: Start: 04-19-2025 Urnls dip stick/tablet reagent auto microscopy Dr. Marci Lopez DO Work Phone: Start: 04-19-2025 Blood count smear mcrscp w/mnl difrntl wbc count Dr. Marci Lopez DO Work Phone: Start: 04-19-[address] Saranya Lopez DO Work Phone: Start: 04-19-2025 Nucleated red blood cell count procedure Dr. Marci Lopez DO Work Phone: Start: 04-04-2025 Mri brain brain stem w/o contrast material Leyla Murphy MD Work Phone: Start: 03-10-2025 Urine microscopy: red cells Dr. Marci beard DO Work Phone: Start: 03-10-2025 Urnls dip stick/tablet reagent auto microscopy Dr. Marci Lopez DO Work Phone: Start: 03-10-2025 Plain x-ray of pelvis and lower extremity Dr. Marci Lopez DO Work Phone: Start: 03-10-2025 Blood count smear mcrscp w/mnl difrntl wbc count Dr. Marci Lopez DO Work Phone: Start: 03-10-[address] Saranya Lopez DO Work Phone: Start: 03-10-2025 Mean corpuscular hemoglobin concentration determination Dr. Marci Lopez DO Work Phone: Start: 03-10-2025 Nucleated red blood cell count procedure Dr. Marci Lopez DO Work Phone: Start: 03-10-2025 Platelet mean volume determination Dr. Jose Lopez DO Work Phone: Start: 01-22-2025 Blood count smear mcrscp w/mnl difrntl wbc count Dr. Marci Lopez DO Work Phone: Start: 01-22-[address] Saranya Lopez DO Work Phone: Start: 01-22-[address] Saranya Lopez DO Work Phone: Start: 01-22-2025 Mean corpuscular hemoglobin concentration determination Dr. Marci Lopez DO Work Phone: Start: 01-22-2025 Nucleated red blood cell count procedure Dr. Marci Lopez DO Work Phone: Start: 01-22-2025 Platelet mean volume determination Dr. Jose zuniga John DO Work Phone: Start: 01-22-2025 Total iron binding capacity measurement Dr. Marci Lopez DO Work Phone: Start: 12-22-[address] Marci Lopez Work Phone: Start: 12-22-2024 MRI of neck vessels with contrast Dr. Pacheco henderson John DO Work Phone: Start: 12-13-2024 Brncdilat rspse spmtry pre&post-brncdilat neno Ramsdon Work Phone: Start: 11-18-2024 Computed tomography of abdomen and pelvis with intravenous contrast Dr. Marci Lopez Work Phone: Start: 08-13-[address] attenuation skull base mid-thigh [facility] Start: 08-13-2024 Gluc bld gluc mntr dev cleared fda spec home use [facility] Start: 07-21-2024 Ct thorax w/o contrast material Martha cotton MD Work Phone: Start: 07-17-2024 Calculation of international normalized ratio Dr. Marci Lopez DO Work Phone: Start: 02-26-[address] [...] DO Comment on above: Implantation Biventricular ICD SUPERVISOR INTERNATIONAL RESERVATIONS-D 04/23 Dr Ashley Evans Generator [employer] G247 VIGILANT X4 SUPERVISOR INTERNATIONAL RESERVATIONS-D Serial [id number] RA Lead [employer] 7840 Ingevity + MRI Serial [id number] 05/12/2022 RV Lead [employer] 0675 Beecher 4 Front Serial [id number] 05/12/2022 LV Lead [employer] 4674 Acuity X4 Spiral Short Serial [id number] 05/12/2022 Start: 04-21-2022 Cardiac MRI [facility] Comment on above: Dilated left ventricle with global hypok inesia, relative septal wall hypokinesia/akinesia, and mild lateral free wall dyskinesia associated with curvilinear mesocardial LGE of the inferoseptal wall, suggesting nonischemic dilated cardiomyopathy. diminished LVEF 31.2% Start: 03-30-2022 Echocardiography [facility] Comment on above: EF 35-40%. Start: 12-03-2021 [...] MD Comment on above: Implantation Biventricular ICD SUPERVISOR INTERNATIONAL RESERVATIONS-D 04/23 Dr Ashley Evans Generator [employer] G247 VIGILANT X4 SUPERVISOR INTERNATIONAL RESERVATIONS-D Serial [id number] RA Lead [employer] 7840 Ingevity + MRI Serial [id number] 05/12/2022 RV Lead [employer] 0675 Beecher 4 Front Serial [id number] 05/12/2022 LV Lead [employer] 4674 Acuity X4 Spiral Short Serial [id number] 05/12/2022 Ophthalmic surgery ( qualifier value) DR LARY WHEAT DO Comment on above: CORRECTED CROSS EYES A CHILD Tonsillectomy DR LARY RUIZ DO Comment on above: A CHILD Plan of Treatment Date Care Activity Detail Author Start: 2028 RSV Vaccine (1 - 1-d ose 75+ series) RSV Vaccine (1 - 1-dose 75+ series) [facility] Start: 07-20-2027 Diabetes Screening Diabetes Screenin g [facility] Start: 07-23-2025 Influenza vaccination S [facility] Start: 07-20-2025 Creatinine measurement Creatinine Le j[facility] Start: 07-20-2025 Diabetes: Estimated Glomerular Filtration Rate for [facility] Diabetes: Estimated Glomerular Filtration Rate for [facility] Start: 07-20-2025 Potassium measurement Potassium Emily l [facility] Start: 06-07-2025 End: 06-07-2025 Patient encounter procedure 06/07/2025 10:00 AM EDT Office Visit Neurology [address] [id number] Leyla Murphy MD [address] [address] 3 month follow up - 60 minutes per [facility] Neu[facility] Comment on above: 3 month follow up - 60 minutes per [facility] Start: 05-23-2025 End: 05-23-2025 Specialty Pharmacy 05/23/2025 7:45 AM EDT Specialty Pharmacy [facility] [address] [place] [id number] Pharmacist, [email or web address] [address] [place] [address] [place] [address] Refill - [facility] - No Answer/WAM 05/21 [facility] Comment on above: Refill - [facility] - N o Answer/WAM 05/21 Start: 05-22-2025 End: 05-22-2025 [facility] Start: 05-21-2025 End: 05-21-2025 Specialty Pharmacy 05/21/2025 8:00 AM EDT Specialty Pharmacy [facility] [address] [place] [id number] Pharmacist, [email or web address] [address] [place] [address] [place] [address] Refill - [facility] - [facility] Comment on above: Refill - [facility] - Start: 05-15-2025 End: 05-15-2025 Patient encounter procedure 05/15/2025 4:00 PM EDT Office Visit Neurology [address] [id number] Leyla Murphy MD [address] [address] NEW PATIENT (previous patient of Dr. Ramirez) - Essential tremors Neurology Comment on above: NEW PATIENT (previou s patient of Dr. Ramirez) - Essential tremors Start: 05-04-2025 Development of care plan [facility] Start: 05-03-2025 [facility] Start: 05-03-2025 Patient discharge [facility] Start: 05-02-2025 [facility] Start: 05-02-2025 Speech therapy management [facility] Start: 04-27-2025 [facility] Start: 04-25-2025 Egd transoral biopsy single/multiple [facility] Start: 04-25-2025 Patient discharge [facility] Start: 04-24-2025 Preparation of bowel for procedure [facility] Start: 04-24-2025 [facility] Start: 04-24-2025 Speech therapy management [facility] Start: 04-24-2025 Speech therapy assessment [facility] Start: 04-24-2025 Verification routine [facility] Start: 04-23-2025 [facility] Start: 04-23-2025 End: 04-23-2025 Specialty Pharmacy 04/23/2025 7:00 AM EDT Specialty Pharmacy [facility] [address] [place], [place] [id number] [place] [address] Pharmacist, [email or web address] [address] [place] [address] Refill [facility] Comment on above: Refill [facility] Start: 04-22-2025 [facility] Start: 04-21-2025 Development of care plan [facility] Start: 04-21-2025 Developing a treatme nt plan [facility] Start: 04-20-2025 Admission procedure [facility] Start: 04-20-2025 Following clinical p athway protocol [facility] Start: 04-20-2025 Introduction of urin dl catheter [facility] Start: 04-20-2025 Measuring intake and output [facility] Start: 04-20-2025 Patient referral to dietitian [facility] Start: 04-20-2025 Referral to occupati onal therapist [facility] Start: 04-20-2025 Referral to service [facility] Start: 04-20-2025 Vital signs measurements [facility] Start: 04-20-2025 End: 04-20-2025 [facility] Start: 04-20-2025 Patient discharge [facility] Start: 04-20-2025 [facility] Start: 04-19-2025 Following clinical p athway protocol [facility] Start: 04-19-2025 Ambulation without limitation [facility] Start: 04-19-2025 Assessment of risk o f venous thromboembolism [facility] Start: 04-19-2025 Care regimes management [facility] Start: 04-19-2025 Incentive spirometry [facility] Start: 04-19-2025 Insertion of cathete r into peripheral vein [facility] Start: 04-19-2025 Notification of physician [facility] Start: 04-19-2025 Oxygen therapy [facility] Start: 04-19-2025 Providing care accor ding to standard [facility] Start: 04-19-2025 Referral to occupati onal therapist [facility] Start: 04-19-2025 Referral to service [facility] Start: 04-19-2025 End: 04-19-2025 [facility] Start: 04-19-2025 Hospital admission, emergency, from emergency room, medical nature [facility] Start: 04-19-2025 Admission procedure [facility] Start: 04-19-2025 Consultation [facility] Start: 04-19-2025 Referral to service [facility] Start: 04-19-2025 Inhalation therapy procedure [facility] Start: 04-04-2025 End: 04-04-2025 Patient encounter procedure 04/04/2025 12:00 PM EDT Appointment [place] [address] DUE TO PT IMPLANT- IF APPT NEEDS TO BE RESCHEDULED IT MUST BE SENT TO THE FOLLOWING STAFF MESSAGE ADDRESS: IMAGING IMPLANTS [[id number]]PACEMAKER approved to schedule by [facility] Comment on above: DUE TO PT IMPLANT- I F APPT NEEDS TO BE RESCHEDULED IT MUST BE SENT TO THE FOLLOWING STAFF MESSAGE ADDRESS: IMAGING IMPLANTS [[id number]]PACEMAKER approved to schedule by Start: 04-02-2025 End: 04-02-2025 Patient encounter procedure Cardiology Comment on above: DEVICE CHECK FOR MRI CLEARANCE [facility]ST [facility] Start: 03-11-2025 DTaP/Tdap/Td Vaccine s (2 - Td or Tdap) DTaP/Tdap/Td Vaccines (2 - Td or Tdap) [facility] Start: 03-11-2025 Urine microalbumin profile DTa P,Tdap,Td Vaccine (2 - Td or Tdap) [facility] Start: 03-10-2025 [facility] Start: 02-13-2025 Patient referral [facility] Work Phone: Start: 12-13-2024 End: 12-13-2024 Patient encounter procedure 12/13/2024 8:30 AM EST Appointment [facility] [address] [place] [address] Marci Lopez [address] [place] [id number] [facility] Start: 12-12-2024 Patient referral [facility] Work Phone: Start: 11-22-2024 Advance Directive Discussion Advance Directive Discussion [facility] Start: 11-22-2024 Medicare Advantage A nnual Wellness Visit Medicare Advantage Annual Wellness Visit [facility] Start: 11-18-2024 [facility] Start: 07-23-2024 Covid-19 Vaccine ( season) Covid-19 Vaccine ( season) [facility] Start: 07-23-2024 Covid-19 Vaccine ( season) Covid-19 Vaccine ( season) [facility] Start: 07-23-[address] [facility] Start: 03-29-2024 Blood chemistry [facility] Start: 03-22-2024 Blood chemistry [facility] Start: 03-15-2024 Patient discharge [facility] Start: 03-14-2024 Referral to service [facility] Start: 03-14-2024 Development of care plan [facility] Start: 03-07-2024 Speech therapy management [facility] Start: 03-07-2024 Speech therapy assessment [facility] Start: 03-06-2024 [facility] Start: 03-02-2024 Fluid intake encouragement [facility] Start: 03-01-2024 Development of care plan [facility] Start: 03-01-2024 Developing a treatme nt plan [facility] Start: 02-29-2024 Verification routine [facility] Start: 02-29-2024 Admission procedure [facility] Start: 02-29-2024 Measuring intake and output [facility] Start: 02-29-2024 Patient referral to dietitian [facility] Start: 02-29-2024 Referral to occupati onal therapist [facility] Start: 02-29-2024 Referral to service [facility] Start: 02-29-2024 Vital signs measurements [facility] Start: 02-29-2024 [facility] Start: 02-29-2024 Patient discharge [facility] Start: 02-29-2024 Patient referral to dietitian [facility] Start: 02-26-2024 Consultation [facility] Start: 02-25-2024 End: 02-25-2024 Blood culture [facility] Start: 02-25-2024 [facility] Start: 02-25-2024 Bacteria identified in Blood by Culture Blood Culture [facility] Start: 02-22-2024 [facility] Start: 02-22-2024 Referral to occupati onal therapist [facility] Start: 02-22-2024 Referral to service [facility] Start: 02-21-2024 Application of intermittent pneumatic compression device [facility] Start: 02-21-2024 Ambulation without limitation [facility] Start: 02-21-2024 Assessment of risk o f venous thromboembolism [facility] Start: 02-21-2024 Insertion of cathete r into peripheral vein [facility] Start: 02-21-2024 Providing care accor ding to standard [facility] Start: 02-21-2024 Referral to gastroenterology service [facility] Start: 02-21-2024 [facility] Start: 02-21-2024 Following clinical p athway protocol [facility] Start: 02-21-2024 Verification routine [facility] Start: 02-21-2024 Admission procedure [facility] Start: 02-21-2024 Hospital admission, emergency, from emergency room, medical nature [facility] Start: 02-21-2024 [facility] Start: 02-21-2024 Patient referral to dietitian [facility] Start: 02-19-2024 [facility] Start: 02-19-2024 Emergency department visit moderate severity EMERGENCY DEPT VISIT LOW MDM [facility] Start: 02-19-2024 Iv infusion hydratio n each additional hour HYDRATE IV INFUSION ADD-ON [facility] Start: 02-19-2024 Iv infusion hydratio n initial 31 min-1 hour HYDRATION IV INFUSION INIT [facility] Start: 12-10-2023 [facility] Start: 12-08-2023 [facility] Start: 11-22-2023 Advance Directive Discussion Advance Directive Discussion [facility] Start: 11-22-2023 Behavioral Health Screening Behavioral Health Screening [facility] Start: 11-22-2023 Medicare Advantage A nnual Wellness Visit Medicare Advantage Annual Wellness Visit [facility] Start: 10-12-2023 Patient discharge [facility] Start: 10-08-2023 Development of care plan [facility] Start: 10-08-2023 [facility] Start: 10-07-2023 Following clinical p athway protocol [facility] Start: 10-07-2023 Aspiration precautions [facility] Start: 10-07-2023 Assessment of risk o f venous thromboembolism [facility] Start: 10-07-2023 Cardiac monitoring [facility] Start: 10-07-2023 Care regimes management [facility] Start: 10-07-2023 Catheterization of vein [facility] Start: 10-07-2023 Elevation of head of bed [facility] Start: 10-07-2023 Exercises [facility] Start: 10-07-2023 Fall prevention [facility] Start: 10-07-[address] anned interventions [facility] Start: 10-07-2023 Inhalation therapy procedure [facility] Start: 10-07-2023 Insertion of cathete r into peripheral vein [facility] Start: 10-07-2023 Introduction of urin dl catheter [facility] Start: 10-07-2023 Measuring intake and output [facility] Start: 10-07-2023 Notification of physician [facility] Start: 10-07-2023 Providing care accor ding to standard [facility] Start: 10-07-2023 Provision of activit y privileges [facility] Start: 10-07-2023 Referral to occupati onal therapist [facility] Start: 10-07-2023 Referral to service [facility] Start: 10-07-2023 Speech therapy assessment [facility] Start: 10-07-2023 Tobacco use cessatio n education [facility] Start: 10-07-2023 [facility] Start: 10-07-2023 Vital signs measurements [facility] Start: 10-07-2023 Verification routine [facility] Start: 10-07-2023 Hospital admission, emergency, from emergency room, medical nature [facility] Start: 10-07-2023 Admission procedure [facility] Start: 10-07-2023 Oxygen therapy [facility] Start: 10-07-2023 [facility] Start: 10-07-2023 Patient discharge [facility] Start: 10-02-2023 Speech therapy management [facility] Start: 10-02-2023 Developing a treatme nt plan [facility] Start: 10-02-2023 Development of care plan [facility] Start: 10-01-2023 Admission procedure [facility] Start: 10-01-2023 Measuring intake and output [facility] Start: 10-01-2023 Patient referral to dietitian [facility] Start: 10-01-2023 Referral to occupati onal therapist [facility] Start: 10-01-2023 Referral to service [facility] Start: 10-01-2023 Vital signs measurements [facility] Start: 10-01-2023 End: 10-01-2023 [facility] Start: 10-01-2023 Speech therapy assessment [facility] Start: 10-01-2023 Patient discharge [facility] Start: 09-29-2023 [facility] Start: 09-28-2023 Following clinical p athway protocol [facility] Start: 09-28-2023 Cardiac monitoring [facility] Start: 09-28-2023 Catheterization of vein [facility] Start: 09-28-2023 Elevation of head of bed [facility] Start: 09-28-2023 Exercises [facility] Start: 09-28-[address] anned interventions [facility] Start: 09-28-2023 Notification of physician [facility] Start: 09-28-2023 Oxygen therapy [facility] Start: 09-28-2023 Patient referral to dietitian [facility] Start: 09-28-2023 Referral to occupati onal therapist [facility] Start: 09-28-2023 Referral to service [facility] Start: 09-28-2023 Speech therapy assessment [facility] Start: 09-28-2023 Tobacco use cessatio n education [facility] Start: 09-28-2023 [facility] Start: 09-28-2023 Vital signs measurements [facility] Start: 09-28-2023 Admission procedure [facility] Start: 09-28-2023 Hospital admission, emergency, from emergency room, medical nature [facility] Start: 09-28-2023 Oxygen therapy [facility] Start: 09-28-2023 [facility] Start: 08-07-2023 Adult depression scr eening assessment DEPRESSION SCREENING [facility] Start: 07-23-2023 COVID-19 Vaccine () COVID-19 Vaccine () [facility] Start: 07-23-2023 Covid-19 Vaccine ( season) Covid-19 Vaccine () [facility] Start: 07-23-[address] [facility] Start: 11-22-2022 ADVANCE DIRECTIVE DISCUSSION ADVANCE DIRECTIVE DISCUSSION [facility] Start: 11-22-2022 DEPRESSION ASSESSMENT DEPRESSION ASS ESSMENT [facility] Start: 10-23-2022 Adult depression scr eening assessment DEPRESSION SCREENING [facility] Start: 07-23-2022 Influenza vaccination INFLUENZA (#1) [facility] Start: 02-25-2022 COVID-19 VACCINE (4 - Booster for Moderna series) COVID-19 VACCINE (4 - Booster for Moderna series) [facility] Start: 12-22-2021 COVID-19 VACCINE (4 - Booster for Moderna series) COVID-19 VACCINE (4 - Booster for Moderna series) [facility] Start: 12-22-2021 COVID-19 VACCINE (5 - Booster for Moderna series) COVID-19 VACCINE (5 - Booster for Moderna series) [facility] Start: 12-22-2021 COVID-19 VACCINE (5 - Moderna series) COVID-19 VACCINE (5 - Moderna series) [facility] Start: 11-22-2021 ADVANCE DIRECTIVE DISCUSSION ADVANCE DIRECTIVE DISCUSSION [facility] Start: 11-22-2021 DEPRESSION ASSESSMENT DEPRESSION ASS ESSMENT [facility] Start: 02-22-2020 Colonoscopy COLONOSCOPY [facility] Start: 02-22-2020 COLORECTAL CANCER SCREENING COLORECTAL CANCER SCREENING [facility] Start: 02-22-2020 Screening for malign ant neoplasm of colon [facility] Start: 2018 BONE DENSITY BONE DENSITY [facility] Start: 2018 Bone Density Screening Bone Density Screening [facility] Start: 2018 Pneumococcal Vaccine : 65+ (1 - PCV) Pneumococcal Vaccine: 65+ (1 - PCV) [facility] Start: 2018 Pneumococcal Vaccine : 65+ (1 of 1 - PCV) Pneumococcal Vaccine: 65+ (1 of 1 - PCV) [facility] Start: 2018 Pneumococcal Vaccine : 65+ Years (1 of 1 - PCV) Pneumococcal Vaccine: 65+ Years (1 of 1 - PCV) [facility] Start: 2018 PNEUMOCOCCAL: 65+ (1 - PCV) PNEUMOCOCCAL: 65+ (1 - PCV) [facility] Start: 2018 PNEUMOVAX AGE 65 AND OVER WITH 5YR LOOKBACK (#1) PNEUMOVAX AGE 65 AND OVER WITH 5YR LOOKBACK (#1) [facility] Start: 2018 Screening for osteoporosis Bone Dens ity Screening [facility] Start: 06-18-2015 Lipid 1996 panel - S george or Plasma Lipid Screening [facility] Start: 06-18-2015 Lipid panel Lipid Screening [facility] Start: 06-18-2015 LIPID SCREEN LIPID SCREEN [facility] Start: 05-06-2015 Shingrix Vaccine (2 of 3) Moran grix Vaccine (2 of 3) [facility] Start: 2013 RSV Immunization age d 60 or older (1 - 1-dose 60+ series) RSV Immunization aged 60 or older (1 - 1-dose 60+ series) [facility] Start: 2013 RSV Immunization for Adults (1 - Risk 60-74 years 1-dose series) RSV Immunization for Adults (1 - Risk 60-74 years 1-dose series) [facility] Start: 2013 RSV Vaccine (1 - 1-d ose 60+ series) RSV Vaccine (1 - 1-dose 60+ series) [facility] Start: 2013 RSV Vaccine (1 - Ris k 60-74 years 1-dose series) RSV Vaccine (1 - Risk 60-74 years 1-dose series) [facility] Start: 2012 DIABETES SCREEN DIABETES SCREEN [facility] Start: 2012 Diabetes Screening Diabetes Screenin g [facility] Start: 2008 Influenza vaccination LUNG CANCER [facility] Start: 2003 Influenza vaccination LUNG CANCER [facility] Start: 2003 Pneumococcal Vaccine : 50+ (1 of 1 - PCV) Pneumococcal Vaccine: 50+ (1 of 1 - PCV) [facility] Start: 2003 SHINGRIX VACCINE (1 of 2) MORAN GRIX VACCINE (1 of 2) [facility] Start: 2003 Zoster Vaccines (1 of 2) Zoste r Vaccines (1 of 2) [facility] Start: 1998 COLOGUARD (FIT-DNA) COLOGUARD (FIT-D NA) [facility] Start: [address] COLONOGRAPHY [facility] Start: 1998 FECAL OCCULT BLOOD FECAL OCCULT BLOO D [facility] Start: 1998 Screening for malign ant neoplasm of colon [facility] Start: 02-18-1998 SIGMOIDOSCOPY SIGMOIDOSCOPY [facility] Start: 1993 Mammography [facility] Start: 1993 Screening for malign ant neoplasm of breast [facility] Start: 1972 DTaP/Tdap/Td Vaccine s (1 - Tdap) DTaP/Tdap/Td Vaccines (1 - Tdap) [facility] Start: 1972 Pneumococcal Vaccine : 50+ Years (1 of 2 - PCV) Pneumococcal Vaccine: 50+ Years (1 of 2 - PCV) [facility] Start: 1972 Urine microalbumin profile DTAP,TDAP ,TD (1 - Tdap) [facility] Start: 1971 Anxiety Screening Anxiety Screening [facility] Start: 1971 Depression Screening Depression Scre ening [facility] Start: 1971 Diabetes: Estimated Glomerular Filtration Rate for Kidney Health Diabetes: Estimated Glomerular Filtration Rate for Kidney Health [facility] Start: 1971 Diabetes: Urine Albumin-Creatinine Ratio for Kidney [facility] Diabetes: Urine Albumin-Creatinine Ratio for Kidney Health [facility] Start: 1971 HEPATITIS C SCREENING HEPATITIS C [facility] Start: 1971 Hepatitis C screening Hepatitis C [facility] Start: 1965 Depression Monitoring Depression Mon itoring [facility] Start: 1965 Depression Screening Depression Scre ing [facility] Start: 1963 Diabetic foot examination Diabetes: Foot Exam [facility] Start: 1963 Glaucoma screening Diabetes: R etinopathy Screening [facility] Start: 1963 Preventive dental service Diabetes: Dental Exam [facility] Start: 1959 Pneumococcal Vaccine : 65+ Years (1 of 2 - PCV) Pneumococcal Vaccine: 65+ Years (1 of 2 - PCV) [facility] Start: 1953 Creatinine measurement Creatinine Le jana [facility] Start: 1953 Echocardiography Echocardiogram [facility] Start: 1953 Hemoglobin A1c measurement Rylie betes: Hemoglobin A1C [facility] Start: 1953 Lipid panel Lipid Panel [facility] Start: 1953 Potassium measurement Potassium Leve l [facility] Start: 1953 Screening for malign ant neoplasm of colon [facility] Start: 1953 Screening for osteoporosis Bone Dens ity Scan [facility] Anion gap in Serum o r Plasma [facility] Anion gap in Serum o r Plasma [facility] Anion gap in Serum o r Plasma [facility] Anion gap in Serum o r Plasma [facility] Anion gap in Serum o r Plasma [facility] BUN/Creatinine ratio [facility] BUN/Creatinine ratio [facility] BUN/Creatinine ratio [facility] BUN/Creatinine ratio [facility] BUN/Creatinine ratio [facility] Calcium [Mass/volume ] in Serum or Plasma [facility] Calcium [Mass/volume ] in Serum or Plasma [facility] Calcium [Mass/volume ] in Serum or Plasma [facility] Calcium [Mass/volume ] in Serum or Plasma [facility] Calcium [Mass/volume ] in Serum or Plasma [facility] Carbon dioxide, tota l [Moles/volume] in Central venous blood [facility] Carbon dioxide, tota l [Moles/volume] in Central venous blood [facility] Carbon dioxide, tota l [Moles/volume] in Central venous blood [facility] Carbon dioxide, tota l [Moles/volume] in Central venous blood [facility] Carbon dioxide, tota l [Moles/volume] in Central venous blood [facility] Creatinine [Mass/vol ume] in Serum or Plasma [facility] Creatinine [Mass/vol ume] in Serum or Plasma [facility] Creatinine [Mass/vol ume] in Serum or Plasma [facility] Creatinine [Mass/vol ume] in Serum or Plasma [facility] Creatinine [Mass/vol ume] in Serum or Plasma [facility] Erythrocyte mean corpuscular volume determination [facility] Erythrocyte mean corpuscular volume determination [facility] Erythrocyte mean corpuscular volume determination [facility] Erythrocyte mean corpuscular volume determination [facility] Erythrocyte mean corpuscular volume determination [facility] Glucose [Mass/volume ] in Serum or Plasma [facility] Glucose [Mass/volume ] in Serum or Plasma [facility] Glucose [Mass/volume ] in Serum or Plasma [facility] Glucose [Mass/volume ] in Serum or Plasma [facility] Glucose [Mass/volume ] in Serum or Plasma [facility] Hematocrit [Volume Fraction] of Blood [facility] Hematocrit [Volume Fraction] of Blood [facility] Hematocrit [Volume Fraction] of Blood [facility] Hematocrit [Volume Fraction] of Blood [facility] Hematocrit [Volume Fraction] of Blood [facility] Hemoglobin [Mass/vol ume] in Blood [facility] Hemoglobin [Mass/vol ume] in Blood [facility] Hemoglobin [Mass/vol ume] in Blood [facility] Hemoglobin [Mass/vol ume] in Blood [facility] Hemoglobin [Mass/vol ume] in Blood [facility] Leukocytes [#/volume ] in Blood [facility] Leukocytes [#/volume ] in Blood [facility] Leukocytes [#/volume ] in Blood [facility] Leukocytes [#/volume ] in Blood [facility] Leukocytes [#/volume ] in Blood [facility] Mean corpuscular hemoglobin concentration determination [facility] Mean corpuscular hemoglobin concentration determination [facility] Mean corpuscular hemoglobin concentration determination [facility] Mean corpuscular hemoglobin concentration determination [facility] Mean corpuscular hemoglobin concentration determination [facility] Mean corpuscular hemoglobin determination [facility] Mean corpuscular hemoglobin determination [facility] Mean corpuscular hemoglobin determination [facility] Mean corpuscular hemoglobin determination [facility] Mean corpuscular hemoglobin determination [facility] Measurement of renal function [facility] Measurement of renal function [facility] Measurement of renal function [facility] Measurement of renal function [facility] Measurement of renal function [facility] End: 03-29-2026 MR Brain WO [facility] Routine Essential tremor Dyskinesia, tardive 1 Occurrences starting 02/27/2025 until 03/29/2026 [facility] Work Phone: Comment on above: 1 Occurrences starti ng 02/27/2025 until 03/29/2026 Neutrophil count [facility] Neutrophil count [facility] Neutrophil count [facility] Neutrophil count [facility] Neutrophil count [facility] Neutrophil percent differential count [facility] Neutrophil percent differential count [facility] Neutrophil percent differential count [facility] Neutrophil percent differential count [facility] Neutrophil percent differential count [facility] End: 07-30-2024 NM BRAIN TREMOR SPECT/CT NM BRAIN TREMOR SPECT/CT Radiology Routine 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) Parkinsonism, unspecified Parkinsonism type (HCC) 1 Occurrences starting 07/01/2023 until 07/30/2024 [facility] Work Phone: Comment on above: 1 Occurrences starti ng 07/01/2023 until 07/30/2024 NM BRAIN TREMOR SPECT/CT NM BRAI N TREMOR SPECT/CT Radiology Routine 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) Parkinsonism, unspecified Parkinsonism type 09/21/2023 2:02 PM EDT [facility] Work Phone: OUTSIDE PROCEDURE SCAN OUTSIDE P ROCEDURE SCAN Procedures Ordered: 07/20/2024 [facility] Comment on above: Ordered: 07/20/2024 Patient Education [facility] Work Phone: Patient referral [facility] Work Phone: Platelets [#/volume] in Blood [facility] Platelets [#/volume] in Blood [facility] Platelets [#/volume] in Blood [facility] Platelets [#/volume] in Blood [facility] Platelets [#/volume] in Blood [facility] Potassium measurement [facility] Potassium measurement [facility] Potassium measurement [facility] Potassium measurement [facility] Potassium measurement [facility] Red blood cell count [facility] Red blood cell count [facility] Red blood cell count [facility] Red blood cell count [facility] Red blood cell count [facility] Red cell distributio n width determination [facility] Red cell distributio n width determination [facility] Red cell distributio n width determination [facility] Red cell distributio n width determination [facility] Red cell distributio n width determination [facility] Serum chloride measurement [facility] Serum chloride measurement [facility] Serum chloride measurement [facility] Serum chloride measurement [facility] Serum chloride measurement [facility] Sodium measurement [facility] Sodium measurement [facility] Sodium measurement [facility] Sodium measurement [facility] Sodium measurement [facility] Urea nitrogen [Mass/volume] in Serum or Plasma [facility] Urea nitrogen [Mass/volume] in Serum or Plasma [facility] Urea nitrogen [Mass/volume] in Serum or Plasma [facility] Urea nitrogen [Mass/volume] in Serum or Plasma [facility] Urea nitrogen [Mass/volume] in Serum or Plasma [facility] Urine culture [facility] Vascular US carotid artery duplex bilateral Vascular US carotid artery duplex bilateral CV Vascular Ultrasound Routine Dizziness and giddiness 11/10/2024 3:39 PM EST [employer] Work Phone: End: 07-10-2024 XR Abdomen Single view [employer] Work Phone: Comment on above: Once for 1 Occurrenc es starting 07/10/2024 until 07/10/2024 End: 06-01-2025 XR Chest 2 Views [employer] Work Phone: Comment on above: Once for 1 Occurrenc es starting 06/01/2025 until 06/01/2025 XR Chest PA and Lateral XR CHEST 2V FRONTAL/LAT Radiology Routine Presence of cardiac pacemaker 04/02/2025 9:35 AM EDT [facility] Work Phone: [facility] Immunizations Immunization Date Immunization Notes Care Provider Isis morris 01-19-[address] Adrienne Byres Work Phone: [facility] 10-25-[address] Adrienne Byers Work Phone: [facility] 08-18-2023 Human rabies vaccine from Chicken fibroblast culture JAXON KUHN MD [facility] 08-11-2023 Human rabies vaccine from Chicken fibroblast culture JAXON KUHN MD [facility] 08-07-2023 Human rabies vaccine from Chicken fibroblast culture JAXON KUHN MD [facility] 08-07-2023 rabies vaccine, unspecified formulation JAXON KUHN MD [facility] 08-04-2023 Human rabies vaccine from Chicken fibroblast culture JAXON KUHN MD [facility] 10-27-2021 influenza virus vaccine, unspecified formulation DR LARY WHEAT DO [facility] 10-27-2021 influenza, injectabl e, quadrivalent, preservative free Dr. Adrienne Byers Work Phone: [facility] 10-27-2021 SARS-CoV-2 (COVID-19 ) mRNA-[address] LARY WHEAT DO [facility] 02-27-2021 SARS-CoV-2 (COVID-19 ) mRNA-[address] LARY WHEAT DO [facility] 01-30-2021 SARS-CoV-2 (COVID-19 ) mRNA-[address] LARY WHEAT DO [facility] Comment on above: Result Comment: 2020: [id number] 11-22-2020 influenza, injectabl e, quadrivalent, preservative free Dr. Adrienne Byers Work Phone: [facility] 11-22-2020 SARS-CoV-2 (COVID-19 ) mRNA-1273 vaccine ADRIENNE BYERS DO [facility] 08-30-2020 influenza, injectabl e, quadrivalent, preservative free; Translations: [Fluarix PF Quadrivalent ] DR LARY WHEAT DO [facility] 08-03-2019 influenza virus vaccine, unspecified formulation DR LARY WHEAT DO [facility] Comment on above: Result Comment: [facility] 08-03-2019 Influenza, high dose seasonal Dr. Marci Lopez DO Work Phone: [facility] 08-03-2019 influenza, high dose seasonal, preservative-free Dr. Adrienne Byers Work Phone: [facility] 09-09-2018 influenza virus vaccine, unspecified formulation NOREEN HICKS MD [facility] 09-09-2018 influenza, injectabl e, quadrivalent, preservative free Dr. Adrienne Byers Work Phone: [facility] 09-03-2017 influenza virus vaccine, unspecified formulation NOREEN HICKS MD [facility] 09-03-2017 influenza, injectabl e, quadrivalent, preservative free Dr. Adrienne Byers Work Phone: [facility] 09-18-2016 influenza virus vaccine, unspecified formulation NOREEN HICKS MD [facility] 09-18-2016 influenza, injectabl e, quadrivalent, preservative free Dr. Adrienne Byers Work Phone: [facility] 03-11-2015 tetanus toxoid, redu son diphtheria toxoid, and acellular pertussis vaccine, adsorbed DR LARY WHEAT DO [facility] 03-11-2015 zoster vaccine, live DR ÁLVARO WHEAT DO [facility] 09-22-2014 Influenza virus vaccine [facility] Payers Date Payer Category Payer Self-pay [id number] 2022 Medicare (Managed Care) [employer] G O[employer] PLUS [id number] 2022 Medicare HMO [id number]. [id number] 2021 Unknown [employer]M BLUE CARD PPO OOS [id number] 2021-Present [phone] [address] [place] [address] PPO [id number] 2019 Medicare HUMANA MEDICARE HU[employer]NA MEDICARE PPO [id number] 2019-Present [phone] [address] [address] [place] [address] PPO [id number] [id number] 2019 Medicare [id number]. 1.13.159. [id number] 2017 Unknown [id number] 1.2.840.011019.1.13.159. 2.7.3.155988.315 2015 Unknown [id number] 2013 Medicare [id number] 1955 Unknown [id number] 2.16.840.1.215509.3.579. 2. 1955 Unknown [id number] 2.16.840.1.921632.3.579. 2. 1953 Unknown [id number] 2.16.840.1.192816.3.579. 2. 1953 Unknown [id number] 2.16.840.1.274743.3.579. 2. 1953 Unknown [id number] 2.16.840.1.474711.3.579. 2. 1953 Unknown [id number] 2.16.840.1.935559.3.579. 2. 1953 Unknown [id number] 2.16.840.1.404855.3.579. 2. 1953 Unknown [id number] 2.16.840.1.812386.3.579. 2. 1953 Unknown [id number] 2.16.840.1.014238.3.579. 2. 1955 Unknown [id number] 2.16.840.1.478594.3.579. 2. 1955 Unknown [id number] 2.16.840.1.648632.3.579. 2. 1955 Unknown [id number] 2.16.840.1.254974.3.579. 2. 1953 Unknown [id number] 2.16.840.1.135501.3.579. 2. 1953 Unknown [id number] 2.16.840.1.495307.3.579. 2. 1953 Unknown [id number] 2.16.840.1.028285.3.579. 2. 1953 Unknown [id number] 2.16.840.1.527584.3.579. 2. 1953 Unknown [id number] 2.16.840.1.857393.3.579. 2.627 1953 Unknown [id number] 2.16.840.1.542333.3.579. 2.627 1953 Unknown [id number] 2.16.840.1.251798.3.579. 2.627 1953 Unknown [id number] 2.16.840.1.019590.3.579. 2.627 Unknown [id number] 2.16.840.1.951089.3.579. 2.462 Unknown [id number] 2..840.1.378218.3.579. 2.462 Unknown [id number] 2.840.1.257552.3.579. 2.462 Unknown [id number] 2.840.1.143072.3.579. 2.462 Unknown [id number] 2..840.1.009607.3.579. 2.462 Unknown [id number] 2..840.1.723083.3.579. 2.462 Unknown [id number] 2.16.840.1.005880.3.579. 2.462 Unknown [id number] 2.840.1.606898.3.579. 2.462 Unknown [id number] 2.840.1.650740.3.579. 2.462 Unknown [id number] 2.16.840.1.046233.3.579. 2.462 Unknown [id number] 2.16.840.1.410100.3.579. 2.462 Unknown [id number] 2.16.840.1.519083.3.579. 2.462 Unknown [id number] 2.16.840.1.065317.3.579. 2.462 Unknown [id number] 2.840.1.470017.3.579. 2.462 Unknown [id number] 2.16.840.1.433418.3.579. 2.462 Unknown [id number] 2.16.840.1.314650.3.579. 2.462 Unknown [id number] 2.16.840.1.063984.3.579. 2.462 Unknown [id number] 2.16.840.1.330558.3.579. 2.462 Unknown [id number] 2.840.1.650641.3.579. 2.462 Unknown [id number] 2.840.1.928530.3.579. 2.462 Unknown [id number] 2.840.1.377798.3.579. 2.462 Unknown [id number] 2.840.1.771361.3.579. 2.462 Unknown [id number] 2.840.1.534245.3.579. 2.462 Unknown [id number] 2.840.1.884699.3.579. 2.462 Unknown [id number] 2.840.1.926178.3.579. 2.462 Unknown [id number] 2.840.1.057062.3.579. 2.462 Unknown [id number] 2.840.1.399257.3.579. 2.462 Unknown [id number] 2.840.1.347963.3.579. 2.462 Unknown [id number] 2.840.1.552151.3.579. 2.462 Unknown [id number] 2.840.1.283215.3.579. 2.462 Unknown [id number] 2.840.1.214265.3.579. 2.462 Unknown [id number] 2.16.840.1.017821.3.579. 2.462 Unknown [id number] 2.16.840.1.645680.3.579. 2.462 Unknown [id number] 2.16.840.1.787259.3.579. 2.462 Unknown [id number] 2.16.840.1.385972.3.579. 2.462 Unknown [id number] 2.16.840.1.044037.3.579. 2.462 Unknown [id number] 2.16.840.1.945564.3.579. 2.462 Unknown [id number] 2.16.840.1.983812.3.579. 2.462 Unknown [id number] 2.16.840.1.064146.3.579. 2.462 Unknown [id number] 2.16.840.1.655751.3.579. 2.462 Unknown [id number] 2.16.840.1.841705.3.579. 2.462 Unknown [id number] 2.16.840.1.588906.3.579. 2.462 Unknown [id number] 2.16.840.1.041972.3.579. 2.462 Unknown [id number] 2.16.840.1.778182.3.579. 2.462 Unknown [id number] 2.16.840.1.267170.3.579. 2.462 Unknown [id number] 2.16.840.1.049634.3.579. 2.462 Unknown [id number] 2.16.840.1.201709.3.579. 2.462 Unknown [id number] 2.16.840.1.624843.3.579. 2.462 Unknown [id number] 2.16.840.1.734307.3.579. 2.462 Unknown [id number] 2.16.840.1.714612.3.579. 2.462 Social History Date Type Detail Facility Start: 10-04-2020 End: 01-22-2025 Ex-smoker (finding) [facility] Start: 1955 Sex Assigned At Female A [facility] Start: 12-23-1963 End: 12-23-2008 History of tobacco use Current smoker [facility] Start: 12-23-1963 End: 12-23-2008 History of tobacco use Cigarette Smoker [facility] Start: 07-10-2021 End: 02-27-2025 Alcohol intake Current non-drinker of alcohol (finding) [facility] Start: 05-25-2022 End: 05-12-2023 Exposure to SARS-CoV-2 (event) Not sure [facility] Start: 07-10-2021 End: 12-13-2024 Cigarettes smoked current (pack per day) - Reported 1.5 [facility] Start: 07-10-2021 End: 12-13-2024 Tobacco use and exposure Smokeless tobacco non-user [facility] Start: 05-12-2023 End: 12-13-2024 Tobacco use panel [facility] Adult Depression Screening Assessment 3 [facility] Start: 10-23-2021 Gender identity Identifies as female gender (finding) [facility] Start: 10-23-2021 Sexual orientation Heterosexual (fin ding) [facility] Start: 09-28-2023 End: 02-29-2024 Tobacco smoking status NHIS Unknown if ever smoked [facility] Start: 11-18-2014 None [facility] Start: 11-18-2014 Spouse/ Signif icant Other [facility] Start: 11-18-2014 Non-smoker [facility] Start: 10-01-2023 Cigarettes [facility] Start: 1955 Sex assigned at Not on file S [facility] Start: 06-16-2024 End: 03-10-2025 Sex Female (finding) [facility] NEGATED: Highlighted row [facility] NEGATED: Highlighted row [facility] Medical Equipment Procedure Code Equipment Code Equipment Origin al Text Equipment Identifier Dates [employer] ICD G247 FDA Start: 05-12-2022 [employer] ICD G247 FDA Start: 05-12-2022 [employer] ICD G247 FDA Start: 05-12-2022 [employer] ICD G247 FDA Start: 05-12-2022 [employer] ICD G247 FDA Start: 05-12-2022 [employer] ICD G247 FDA Start: 05-12-2022 [employer] ICD G247 FDA Start: 05-12-2022 [employer] ICD G247 FDA Start: 05-12-2022 [employer] ICD G247 FDA Start: 05-12-2022 Icd-05/12/2022 [id number] Start: 05-12-2022 Comment on above: Description: BSC G24 7 RA [id number] RV [id number] LV [id number] [employer] ICD G247 FDA Start: 05-12-2022 [employer] ICD G247 FDA Start: 05-12-2022 [id number] Start: 05-12-2022 [id number] Start : 05-12-2022 [id number] Start : 05-12-2022 [employer] ICD G247 FDA Start: 05-12-2022 [employer] ICD G247 FDA Start: 05-12-2022 FDA Start: 05-12-2022 [employer] ICD G247 FDA Start: 05-12-2022 [employer] ICD G247 FDA Start: 05-12-2022 [employer] ICD G247 FDA Start: 05-12-2022 [employer] ICD G247 FDA Start: 05-12-2022 FDA Start: 05-12-2022 [employer] ICD G247 FDA Start: 05-12-2022 [employer] ICD G247 FDA Start: 05-12-2022 Goals Date Patient Goal Desired Activity /State Functional Status Date Assessment Result Facility 05-03-2025 Functional status Ambulates;Jose r;Bedside Commode [facility] Work Phone: 04-26-2025 Functional status Bedrest [facility] Work Phone: 04-25-2025 Functional status With Assist of 1 [facility] Work Phone: 04-20-2025 Functional status Ambulates;Bath room Privilege [facility] Work Phone: 04-19-2025 Functional status Standard Walker [facility] Work Phone: 03-15-2024 Functional status Ambulates;Up ad ann marie [facility] Work Phone: 02-29-2024 Functional status Chair [facility] Work Phone: 10-28-2023 Functional Status flight to bed [facility] 10-12-2023 Functional status Activity Abili ty Standby Assist [facility] Work Phone: 10-11-2023 Functional status Ambulates [facility] Work Phone: 10-07-2023 Functional status Ambulates [facility] Work Phone: 10-06-2023 Functional status Rolling Walker [facility] Work Phone: 10-01-2023 Functional status Ambulates [facility] Work Phone: 08-11-2023 Functional Status Room check performed [facility] 08-04-2023 Functional Status Standard Safet y ID band on, Call device within reach, Bed in low position, Wheels locked, Upper/Half-Length side-rails up, Bedside Cart Locked, Safety level maintained [facility] 08-20-2022 Functional Status Minimum assistance [facility] 08-19-2022 Functional Status 20 [facility] 08-19-2022 Functional Status Standard Safet y ID band on, Call device within reach, Bed in low position, Wheels locked, Upper/Half-Length side-rails up, Phone within reach, personal items within reach, Visitor at bedside, Safety level maintained [facility] 05-22-2022 Functional Status Resting Katie alfaro 04-26-2022 Functional Status Independent Katie Simpson 04-03-2022 Functional Status Katie alfaro 04-03-2022 Functional Status Katie alfaro 04-02-2022 Functional Status Katie alfaro 04-02-2022 Functional Status Katie alfaro 02-05-2015 Are you deaf, or do you have serious difficulty hearing No 02/05/2015 4:06 PM ARONT Armida Ballard LPN No [facility] 02-05-2015 Are you blind, or do you have serious difficulty seeing, even when wearing glasses No 02/05/2015 4:06 PM Armida Lowe LPN No [facility] 02-05-2015 Do you have serious difficulty walking or climbing stairs No 02/05/2015 4:06 PM Armida Lowe LPN No [facility] 02-05-2015 Do you have difficul ty dressing or bathing No 02/05/2015 4:06 PM Armida Lowe LPN No [facility] 02-05-2015 Because of a physica l, mental, or emotional condition, do you have difficulty doing errands alone such as visiting a physician's office or shopping No 02/05/2015 4:06 PM Armida Lowe LPN No [facility] Mental Status Date Assessment Result Facility 05-03-2025 Cognitive function Voice/Name [facility] Work Phone: 04-25-2025 Cognitive function Voice/Name;Touch/Shaki ng [facility] Work Phone: 04-20-2025 Cognitive function Voice/Name [facility] Work Phone: 04-19-2025 Cognitive function Level Of Cons ciousness Awake;Alert;Follows Commands [facility] Work Phone: 03-15-2024 Cognitive function Voice/Name [facility] Work Phone: 03-13-2024 Cognitive function Cooperative [facility] Work Phone: 02-29-2024 Cognitive function Voice/Name [facility] Work Phone: 10-12-2023 Cognitive function Voice/Name [facility] Work Phone: 10-07-2023 Cognitive function Voice/Name [facility] Work Phone: 10-06-2023 Cognitive function Voice/Name [facility] Work Phone: 10-01-2023 Cognitive function Voice/Name [facility] Work Phone: 09-28-2023 Cognitive function Voice/Name [facility] Work Phone: 08-04-2023 Mental Status Orientation Oriented x 4 [facility] 08-20-2022 Mental Status Orientation Oriented x 4 [facility] 08-19-2022 Mental Status [facility] 05-22-2022 Mental Status Oriented x 4 [facility] 04-25-2022 Mental Status Oriented x 4 [facility] 04-03-2022 Mental Status [facility] 04-02-2022 Mental Status [facility] 02-05-2015 Because of a physica l, mental, or emotional condition, do you have serious difficulty concentrating, remembering, or making decisions No 02/05/2015 4:06 PM Armida Lowe LPN No [facility] Clinical Notes 02-21-2015 to 05-22-2025 Note Date & Type Note Facility 05-22-2025 Radiology Diagnostic study note [facility] 05-22-2025 Discharge summary Note Date/Time May 22, 2025 8:43pm [facility] Medical Records Department [address] [place] [address] Emergency Department Summary 05/22/25 MR#: [id number] Acct: [id number] Name: MANSI CARO Rep #:[id number] 93 : 1955 70 From: Fazal Heller DO PCP: Marci Lopez DO Status:REG E R Location: ED HPI History of Present Illness Chief Complaint: Abd Pain Narrative Narrative: Patient is a 70-year-old female past medical history of ischemic colitis, CVA, chronic kidney disease, heart failure, anxiety, depression, PFO, hyperlipidemia,myocarditis who presented to the emergency department chief complaint abdominal pain. According the patient's she has been having abdominal pain for approximately 6 months now and notes that she had been asking for more pain medication than she normally asked with her abdominal pain therefore her husbandbrought her here to be further evaluated. He states that she does have a history of ischemic colitis. He states that she recently had upper and lower endoscopies that she had been having GI bleed in the past. [facility] Medical History Back pain History of Holter monitoring History of stress test History of echocardiogram Cardiology follow-up encounter Ischemic colitis History of left heart catheterization History of mechanical ventilation Cardiogenic pulmonary edema Acute hypoxic respiratory failure Multiple lung nodules Major depressive disorder Left bundle branch block NSTEMI (non-ST elevated myocardial infarction) Diabetic peripheral vascular disease Diabetic nephropathy Chronic kidney disease (CKD) Bleeding ulcer Dyslipidemia Chronic systolic heart failure Pacemaker Congestive heart failure (CHF) Cerebral palsy Anxiety and depression Heart failure with reduced ejection fraction GERD (gastroesophageal reflux disease) Insomnia Transient ischemic attack AV node dysfunction Ischemic cardiomyopathy Presence of biventricular implantable cardioverter-defibrillator Ulcer Restless legs High cholesterol Anxiety Former smoker ICD (implantable cardioverter-defibrillator) in place Coronary artery disease CVA (cerebral vascular accident) PFO (patent foramen ovale) Cardiac resynchronization therapy defibrillator ([employer]-D) in place Myocarditis Hyperlipidemia Hypertension Home Medications ?Medication ?Instructions ?Recorded ?Last Taken ?Type clonazepam 1 mg tablet 1 mg PO QHS anxiety 11/18/14 07/02/24 History trazodone 50 mg tablet 50 mg PO DAILY Anxiety 11/1804/19/25 20:30 History cholecalciferol (vitamin D3) 25 50 mcg (2 x 25 mcg (1, 000 unit)) 09/30/23 04/19/25 20:30 Rx mcg (1,000 unit) tablet PO QHS supplement #0 tabs aspirin 81 mg tablet,delayed 81 mg PO .COMPLEX heart 1 12/01/22 04/23/25 History release rosuvastatin 20 mg tablet 20 mg PO QHS cholesterol 12/1504/19/25 20:30 History furosemide 20 mg tablet 20 mg PO QDAY PRN for 2lb we ight 06/13/24 06/19/24 History gain escitalopram oxalate 5 mg tablet 5 mg PO QDAY Mood 06/1504/20/25 08:50 History polyethylene glycol 3350 17 17 g PO DAILY Constipation 11/28/24 Unknown History gram/dose oral powder (Miralax) metformin 500 mg tablet 500 mg PO QDAY Diabetes 12/24 06/15 Unknown History metoprolol succinate 25 mg 25 mg PO QDAY BP 01/18/25 0 04/20/25 10:35 History tablet,extended release 24 hr (Toprol XL) lamotrigine 100 mg tablet 100 mg PO QDAY Anxiety 01/2304/20/25 08:50 History polyethylene glycol 400 0.25 % eye 1 drp ophthalmic (e ye) .q1hr PRN 01/23/25 Unknown History gel drops (Blink Gel Tears) Dry eyes ferrous sulfate 325 mg (65 mg 325 mg PO QDAY Supplemen t 02/13/25 04/20/25 08:30 History iron) tablet (Feosol) linaclotide 145 mcg capsule 145 mcg PO QAM Constipatio n #60 02/14/25 Unknown Rx (Linzess) caps hyoscyamine sulfate 0.125 mg tablet 0.125 mg PO TID NE N dyspepsia #90 03/05/25 Unknown Rx tabs clopidogrel 75 mg tablet 75 mg PO .COMPLEX Antiplatel et 04/19/25 04/23/25 History deutetrabenazine 6 mg 6 mg PO DAILY involuntary Mo vements 04/19/25 04/20/25 08:50 History tablet,extended release 24 hr (Austedo XR) phenazopyridine 100 mg tablet 100 mg PO TID PRN PRN bl adder pain 04/19/25 Unknown History oxycodone 5 mg tablet 5 mg PO Q6H PRN PRN Pain Sco re 04/30/25 Unknown Rx 6-10 7 days #28 tabs pantoprazole 40 mg tablet,delayed 40 mg PO DAILY 30 da ys #30 tabs 04/30/25 Unknown Rx release cephalexin 500 mg capsule 500 mg PO Q12H 5 days #10 ca ps 05/22/25 Unknown Rx dicyclomine 20 mg tablet 20 mg PO TID #30 tabs Unknown Rx ondansetron 4 mg disintegrating 4 mg PO Q6H PRN nausea and 05/22/25 Unknown Rx tablet vomiting #20 tabs Allergy/AdvReac Type Severity Reaction Status Date / Time No Known Allergies Allergy Verified 05/22/25 14:40 Family History Father Heart disease Myocardial infarction Mother Anxiety and depression Suicide and self-inflicted injury from suicide age 52. Surgical History History of cardiac catheterization Presence of stent in coronary artery History [...] social history: - Song FUENTES ROS ED ROS Narrative Constitutional: Denies any fevers, chills, headaches Eyes: Denies change in vision double vision blurry vision Cardiovascular: Denies chest pain or palpitations Respiratory: Denies coughing wheezing shortness of breath Abdomen: Complains of abdominal pain as noted above denies nausea vomiting diarrhea : Denies any urinary symptoms Neurological: Denies any numbness, some tingling that is new Musculoskeletal: Denies back pain Skin: Denies any rashes or lesions EXAM Physical Exam Narrative Exam Narrative: General: Patient is lying in bed rest comfortably did not appear to be acute distress Head: Atraumatic, normocephalic Eyes: PERRL bilaterally, EOMI by, no conjunctival injection noted Neck: Soft, supple, trachea midline Cardiovascular: Regular rhythm no murmurs gallops rubs noted Respiratory: Clear to auscultation bilaterally Abdomen: Soft, nondistended, diffuse tenderness to palpation no rebound or guarding on exam Extremities: +4/5 strength noted in the bilateral upper and lower extremities, radial pulses +2/4 and about extremities, no pedal edema on exam Neurological: Patient following commands knew that she was at [facility] years 2024 Skin: Warm, dry, intact no rashes or lesions noted Const Vital Signs: 05/22/25 14:39 05/22/25 16:35 05/22/25 19:04 Temperature 98.5 F Temperature Source Oral Pulse Rate 83 65 60 Respiratory Rate 16 14 19 H Blood Pressure 89/63 L 112/62 107/58 L Blood Pressure Mean 71 78 74 Pulse Ox 90 93 90 Oxygen Delivery Method Room Air Room Air Room Air Oxygen Flow Rate (L/min) 05/22/25 19:08 05/22/25 19:08 Temperature Temperature Source Pulse Rate Respiratory Rate Blood Pressure Blood Pressure Mean Pulse Ox 83 93 Oxygen Delivery Method Room Air Nasal Cannula Oxygen Flow Rate (L/min) 2 MDM MDM MDM Narrative Medical decision making narrative: Patient is a 70-year-old female who presented to the emergency department chief complaint of abdominal pain that has been worsening. On the differential diagnosis includes but not limited to ischemic colitis, bowel obstruction, appendicitis, pancreatitis, UTI. Once workup is obtained reviewed she will be reevaluated. Patient given IV fluids for hydration. Patient given morphine Zofran. Patient CBC reviewed showed no evidence leukocytosis white blood count normal at7.4, he was 9.4, platelet count was 9193. Patient sodium was 137, potassium normal 4.6, creatinine was noted be 1.42, AST and ALT are 28 and 7 respectively. Patient's lipase was noted to be 13. Patient's urinalysis reviewed and showed 100 leukocyte esterase positive nitrites 25-50 white cells with 1+ bacteria willgive the patient a gram Rocephin urine will be sent for culture. She will be placed on Keflex for 5 days. She was advised follow-up on the urine culture with her doctor. 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 Intraluminal air within the urinary bladder which may representinfection or recent instrumentation likely secondary to UTI. Hyperdensity within the sigmoid colon favoring debris given multifocality. Colonic diverticulosis atherosclerosis noted. Reevaluation the patient she is feeling much better she would like to go home atthis point time. Patient did have a brief episode hypoxia this was likely secondary to the morphine given as she recovered. She was advised to follow-up with her doctor and return with worsening symptoms or concerns. She does agree with this plan all course concerns answered she was discharged home in stable condition. She is also given prescriptions for Bentyl and Zofran for her abdominal pain and nausea. at bedside is also agreeable with this plan as well. Lab Data Labs: Laboratory Results - last 24 hr 05/22/25 05/22/25 05/22/25 15:15 16:36 19:00 WBC 7.3 7.4 RBC 3.43 L 3.05 L Hgb 10.6 L 9.4 L Hct 32.8 L 29.1 L MCV 95.6 95.4 MCH 30.9 30.8 MCHC 32.3 32.3 RDW Std Deviation 46.4 H 45.8 H RDW Coeff of Edita 13.2 13.2 Plt Count 221 193 MPV 10.2 10.4 Immature Gran % (Auto) 0.400 0.400 Neut % (Auto) 70.5 H 67.0 Lymph % (Auto) 16.2 L 17.5 L Upton % (Auto) 10.4 H 12.5 H Eos % (Auto) 2.1 2.2 Baso % (Auto) 0.4 0.4 Absolute Neuts (auto) 5.1 5.0 Absolute Lymphs (auto) 1.18 1.30 Nucleated RBC % 0 0 Sodium 136 137 Potassium 4.4 4.6 Chloride 100 102 Carbon Dioxide 23.7 25.3 Anion Gap 12 10 BUN 27 H 28 H Creatinine 1.39 H 1.42 H Estim Creat Clear Calc 36.36 L 35.59 L Est GFR (MDRD) Non-Af 40 L 39 L BUN/Creatinine Ratio 19.7 20.0 Glucose 236 H 173 H Calcium 9.0 8.7 Total Bilirubin 0.33 0.27 AST 30 28 ALT 6 7 Alkaline Phosphatase 74 67 Total Protein 6.8 6.4 Albumin 3.2 L 3.1 L Globulin 3.6 3.3 Albumin/Globulin Ratio 0.9 0.9 Lipase 15 13 Urine Color Ena Urine Clarity Sl. 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 Intraluminal air within the urinary bladder which may represent infection or recent instrumentation. Correlate with clinical history. Hyperdensity within the sigmoid colon favoring debris given multi focality. Evaluation for intraluminal hemorrhage is limited on this single phase CTA. Colonic diverticulosis. Atherosclerosis as above. Reading Location: [place] [address] Discharge Plan Triage Chief Complaint: Abd Pain ED Provider: Fazal Heller Dx/Rx/DC Orders Clinical Impression: Abdominal pain, Nausea & vomiting, Urinary tract infection Prescriptions: New cephalexin 500 mg capsule 500 mg PO Q12H 5 Days Qty: 10 0RF ondansetron 4 mg tablet,disintegrating 4 mg PO Q6H PRN (Reason: nausea and vomiting) Qty: 20 0RF dicyclomine 20 mg tablet 20 mg PO TID Qty: 30 0RF No Action furosemide 20 mg tablet 20 mg PO QDAY PRN (Reason: for 2lb weight gain) metformin 500 mg tablet 500 mg PO QDAY metoprolol succinate [Toprol XL] 25 mg tablet extended release 24 hr 25 mg PO QDAY Blink Gel Tears 0.25 % drops,gel 1 drp ophthalmic (eye) .q1hr PRN (Reason: Dry eyes) lamotrigine 100 mg tablet 100 mg PO [...] 20 mg tablet 20 mg PO QHS pantoprazole 40 mg Tablet,Delayed Release (Dr/Ec) 40 mg PO DAILY 30 Days Qty: 30 0RF oxycodone 5 mg Tablet 5 mg PO Q6H PRN PRN (Reason: Pain Score 6-10) 7 Days Qty: 28 0RF Austedo XR 6 mg tablet extended release [...] Marci Lopez DO [Primary Care Provider] - Activity Restrictions/Additional Instructions: Follow-up your doctor in outpatient setting. Take antibiotics for your urinary tract infection as prescribed use other antibiotics as prescribed as well. Return with worsening symptoms or any concerns. Follow-up and urine culture with your doctor. Print Language: Bangladeshi Disposition Disposition: Home, Self Care What to do if you have Problems For any increased pain, shortness of breath, bleeding, nausea or vomiting, chestpain, or any unexpected problems, contact your Primary Care Provider. Call [facility] ([phone]) or report to the closest Emergency Room. Call 911 if necessary. 05/22/252042 <Electronically signed by Fazal Heller DO> Cosigner Signature (if applicable): CC: Marci Lopez DO ~ Signed [facility] Work Phone: 1(740) 819-491306-30-2025 NoteHNO ID: [id number] Author: DONOVAN LOUISE RPh Service: ? Author Type: ? Type: Progress Notes Filed: 05/23/2025 07:25 Note Text: [facility] Special[facility] Refill Assessment Medication(s): [...] been reviewed prior to dispensing the medication. Ship Wirer Assessment Patient confirmed: Yes Med/dose confirmed: Yes Missed doses: No Estimated days supply on hand: 7 Next cycle/dose due: 05/23/25 Copay amount: 0 Delivery method: FedEx Signature required: Waived on patient request Delivery address: [address] [place] [address] Delivery date: 05/24/25 Questions or concerns for the pharmacist?: No [...] facility-administered medications on file prior to visit. [facility] SPECIALTY CLINICAL ASSESSMENT - NEUROLOGY V7: Assessment to use: Refill Assessment of injection issues or necrosis at injection sites: N/A Screening for infection: Yes Drug specific assessments, as appropriate: Yes Current medication list (including drug interaction assessment): Yes Experience of adverse reactions to the medication: Yes Date of influenza vaccination reminder: 03/28/2025 Date [...] breathing and/or sedation and monitor patients closely (more content not included)...[facility]06-09-2025 Discharge summary Author Alonso Marte [facility] Note Date/Time April 30, 2025 7:13p m [facility] Medical Records Department [address] [place] [address] Discharge Summary 04/30/25 1901 MR#: [id number] Acct: [id number] Name: MANSI CARO Rep #:[id number] 00 : 1955 70 From: Alonso Marte MD PCP: Marci Lopez DO Status:ADM I N Location: [place] [address] Providers Date of Admission: 04/20/25 Primary Care Physician: Dr. Marci Lopez DO Reason For Visit: GENERALIZED WEAKNESS Diagnosis Discharge Diagnosis (1) Debility: Status: Acute Code(s): R53.81 - Other malaise (2) CVA (cerebral vascular accident): Status: Acute Code(s): I63.9 - Cerebral infarction, unspecified (3) HLD (hyperlipidemia): Status: Chronic Code(s): E78.5 - Hyperlipidemia, unspecified (4) Muscle spasm: Status: Acute Code(s): M62.838 - Other muscle spasm (5) Ischemic colitis: Status: Acute Code(s): K55.9 - Vascular disorder of intestine, unspecified (6) Calcium deficiency: Status: Acute Code(s): E58 - Dietary calcium deficiency (7) Vitamin D deficiency: Status: Acute Code(s): E55.9 - Vitamin D deficiency, unspecified (8) Insomnia: Status: Acute Code(s): G47.00 - Insomnia, unspecified (9) Chronic systolic heart failure: Status: Chronic Code(s): I50.22 - Chronic systolic (congestive) heart failure (10) Irritable bowel syndrome: Status: Acute Code(s): K58.9 - Irritable bowel syndrome, unspecified (11) Depression: Status: Acute Code(s): F32.A - Depression, unspecified (12) Diabetes mellitus: Status: Acute Code(s): E11.9 - Type 2 diabetes mellitus without complications (13) GERD (gastroesophageal reflux disease): Status: Acute Code(s): K21.9 - Gastro-esophageal reflux disease without esophagitis (14) Overactive bladder: Status: Acute Code(s): N32.81 - Overactive bladder Plan 70 year old female with below past medical history hospitalized for weakness, noreversible cause of weakness found, admitted to TCU with debility, here for rehabilitation, strengthening, prior ot discharge home with . * Debility - PT/OT. * Pain - Tylenol 1000mg q6 prn pain (1-10). * Bowel - Miralax 17gm daily, Linzess 145mcg daily. * Adult immunization - Administer pneumonia vaccine, covid vaccine, flu vaccine as appropriate. * DVT prophylaxis - Hold, on dual antiplatelet therapy. * Chronic HFrEF - Metoprolol succinate 25mg daily, Furosemide 20mg daily prn 2lb weight gain. * GERD - Pantoprazole 40mg daily, Levsin 0.125mg tid prn. * Diabetes Mellitus II - Metformin 500mg daily. * Dry Eyes - Artificial tears 1 gtt ou q1 prn. * Anxiety - Lamictal 100mg daily. * Iron deficiency anemia - Ferrous sulfate 325mg daily, Dr. Lockett planning EGD/colonoscopy 04/25/2025. * Vitamin D deficiency - D3 25mcg daily. * Stroke - Aspirin 81mg daily, Plavix 75mg daily. * Hyperlipidemia - Rosuvastatin 20mg qhs. * Muscle spasm - Baclofen 5mg daily. * Shortness of breath - Albuterol mdi prn. * Tardive dyskinesia - Austedo XR 6mg daily. * Dysuria - Pyridium 100mg tid prn, Dr. Garcia planning office cystoscopy. The following psychotropic medication was present on admission: Escitalopram 5mgdaily. Psychotropic medication therapy is indicated for a diagnosis of: Major Depression. Based on my clinical evaluation, continuation of the medication is necessary at this time. Gradual dose reduction plan (select one): ____ GDR will be attempted. Will monitor patient symptoms and behaviors in response to GDR. ___x_ GRD contraindicated. Reason contraindicated: stable chronic mcfp use. The following psychotropic medication was present on admission: Trazodone 50mg qhs. Psychotropic medication therapy is indicated for a diagnosis of: Insomnia. Based on my clinical evaluation, continuation of the medication is necessary at this time. Gradual dose reduction plan (select one): ____ GDR will be attempted. Will monitor patient symptoms and behaviors in response to GDR. __x__ GRD contraindicated. Reason contraindicated: stable chronic mcfp use. The following psychotropic medication was present on admission: Clonazepam 1mg qhs. Psychotropic medication therapy is indicated for a diagnosis of: Anxiety/insomnia. Based on my clinical evaluation, continuation of the medication is necessary at this time. Gradual dose reduction plan (select one): ____ GDR will be attempted. Will monitor patient symptoms and behaviors in response to GDR. __x__ GRD contraindicated. Reason contraindicated: stable chronic mcfp use. Medications at Discharge Home Medications clonazepam 1 [...] tablet 20 mg PO QHS cholesterol 02/21/24 furosemide 20 mg tablet 20 mg PO QDAY PRN for 2lb weight gain 06/13/24 escitalopram oxalate 5 mg tablet 5 mg PO QDAY Mood 11/28/24 polyethylene glycol 3350 17 gram/dose oral powder (Miralax) 17 g PO DAILY Constipation 11/28/24 metformin 500 mg tablet 500 mg PO QDAY Diabetes 01/18/25 metoprolol succinate 25 mg tablet,extended release 24 hr (Toprol XL) 25 mg PO QDAY BP 01/18/25 lamotrigine 100 mg tablet 100 mg PO QDAY Anxiety 01/23/25 polyethylene glycol 400 0.25 % eye gel drops (Blink Gel Tears) 1 drp ophthalmic (eye) .q1hr PRN Dry eyes 01/23/25 ferrous sulfate 325 mg (65 mg iron) tablet (Feosol) 325 mg PO QDAY Supplement 02/13/25 linaclotide 145 mcg capsule (Linzess) 145 mcg PO QAM Constipation #60 caps 02/14/25 hyoscyamine sulfate 0.125 mg tablet 0.125 mg PO TID PRN dyspepsia #90 tabs 03/05/25 clopidogrel 75 mg tablet 75 mg PO .COMPLEX Antiplatelet 04/19/25 deutetrabenazine 6 mg tablet,extended release 24 hr (Austedo XR) 6 mg PO DAILY involuntary Movements 04/19/25 phenazopyridine 100 mg tablet 100 mg PO TID PRN PRN bladder pain 04/19/25 mesalamine 1.2 gram tablet,delayed release 2.4 g (2 x 1.2 gram) PO DAILY 30 days#60 tabs 04/30/25 oxycodone 5 mg tablet 5 mg PO Q6H PRN PRN Pain Score 6-10 7 days #28 tabs 04/30/25 pantoprazole 40 mg tablet,delayed release 40 mg PO DAILY 30 days #30 tabs 04/30/25 Hospital Course Operations None Procedures Colonoscopy and EGD Summary of Care Provided Minutes Spent on Discharge: 35 Hospital Course: 70 year old female with below past medical history hospitalized for weakness, noreversible cause of weakness found, admitted to TCU with debility, here for rehabilitation, strengthening, prior ot discharge home with . 04/25/2025 Dr. Lockett EGD: Impressions : - Normal esophagus. - No gross lesions in the entire stomach. - Acquired duodenal stenosis. Biopsied. 04/25/2025: Dr. Lockett colonoscopy: Impressions : - Localized moderate inflammation was found in the rectum secondary to colitis. Biopsied. 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 Biopsied. - Diverticulosis in the recto-sigmoid colon, in the sigmoid colon, in the transverse colon and in the ascending colon. - The examined portion of the ileum was normal. Discharge home with 05/03/2025, [facility]. Physical Exam Const alert General Appearance: cooperative [...] Appearance: appropriate Weight / BMI Weight Weight: 60.963 kg Body Mass Index (BMI) 20.4 ABG / Lab / Microbiology Data 04/30/25 05:07 04/30/25 05:07 Laboratory: Laboratory Results - last 24 hr 04/30/25 05:07: WBC 6.4, RBC 3.16 L, Hgb 9.8 L, Hct 29.9 L, MCV 94.6, MCH 31.0, MCHC 32.8, RDW Std Deviation 46.4 H, RDW Coeff of Edita 13.3, Plt Count 212, MPV 10.4, Immature Gran % (Auto) 0.500, Neut % (Auto) 55.4, Lymph % (Auto) 28.3, [place] % (Auto) 10.9 H, Eos % (Auto) 4.4, Baso % (Auto) 0.5, Absolute Neuts (auto) 3.6, Absolute Lymphs (auto) 1.82, Nucleated RBC % 0, Sodium 139, Potassium 4.1, Chloride 105, Carbon Dioxide 25.1, Anion Gap 9, BUN 16, Creatinine 0.94, Estim Creat Clear Calc 52.06, Est GFR (MDRD) Non-Af 65, BUN/Creatinine Ratio 16.8, Glucose 142 H, Calcium 8.7 04/30/25 05:54: POC Glucose 132 H 04/30/25 16:28: POC Glucose 188 H D/C Instructions Discharge Diet: No restrictions Discharge Activity: Return to Normal Activity, May Shower and Use Walker Weight Bearing Status: Weight bearing as tolerated Call your doctor if you observe: Fever of 101 or Higher, Inability to urinate, Inability to have a bowel movement, Shortness of breath, Dizziness, Fainting spells, Swelling in the ankles, Chest pain and Uncontrolled pain DC O2, CPAP, BIPAP Needs Home O2 Discharge instructions: No Additional Instructions: Discharge home with 05/03/2025, Kiko Rossi PT. Please Follow Up With: ANNE When: As scheduled. Meaningful Use Info Meaningful Use Meaningful Use [...] Simvastatin 80mg Discharge Plan Admission Admit Date/Time: 04/20/25 16:10 Primary Reason for Your Visit: Debility. Attending Provider: Alonso Marte Chi Primary Care Provider: Marci Lopez Instructions Additional Instructions / Restrictions: Discharge home with 05/03/2025, Kiko Rossi PT. Discharge Orders/Prescriptions Prescriptions: New pantoprazole 40 mg Tablet,Delayed Release (Dr/Ec) 40 mg PO DAILY 30 Days Qty: 30 0RF oxycodone 5 mg Tablet 5 mg PO Q6H PRN PRN (Reason: Pain Score 6-10) 7 Days Qty: 28 0RF mesalamine 1.2 gram Tablet,Delayed Release (Dr/Ec) 2.4 g PO DAILY 30 Days Qty: 60 0RF Continued furosemide 20 mg tablet 20 mg PO QDAY PRN (Reason: for 2lb weight gain) metformin 500 mg tablet 500 mg PO QDAY metoprolol succinate [Toprol XL] 25 mg tablet extended release 24 hr 25 mg PO QDAY Blink Gel Tears 0.25 % drops,gel 1 drp ophthalmic (eye) .q1hr PRN (Reason: Dry eyes) lamotrigine 100 mg tablet 100 mg PO [...] 20 mg tablet 20 mg PO QHS Austedo XR 6 mg tablet extended release 24 hr 6 mg PO DAILY phenazopyridine 100 mg tablet 100 mg PO TID PRN PRN (Reason: bladder pain) clopidogrel 75 mg Tablet 75 mg PO .COMPLEX Rx Instructions: 75 mg orally Wednesday, Wednesday, Wednesday; hyoscyamine sulfate 0.125 mg tablet 0.125 mg PO TID PRN (Reason: dyspepsia) Qty: 90 2RF Discontinued acetaminophen 500 mg tablet 500 mg PO Q6H PRN PRN (Reason: Pain Score 1-10) docusate sodium 100 mg capsule 100 mg PO DAILY PRN (Reason: constipation) pantoprazole 40 mg tablet,delayed release (DR/EC) 40 mg PO DAILY baclofen 5 mg tablet 5 mg PO QDAY Patient Comments: PLEASE SEE ATTACHED FOR DETAILED DIRECTIONS albuterol sulfate 90 mcg/actuation HFA aerosol inhaler 1 puff inhalation Q6H PRN (Reason: shortness of breath or wheezing) Qty: 8.5 0RF oxycodone-acetaminophen 5-325 mg tablet 1 tab PO Q6H PRN PRN (Reason: severe pain) Referrals / Follow Up: Marci Lopez DO [Primary Care Provider] - Friend,DO Shan [Med Staff - Active Staff] - Within 1 Month (Colitis.) Disposition Disposition (needs filled in before D/C Order can be placed): Home, Self Care 04/30/251912 <Electronically signed by Alonso Marte MD> Cosigner Signature (if applicable): CC: Dr. Alonso Marte MD; Marci Lopez DO~ Signed [facility] Work Phone: [phone]) 456-150206-09-2025 Discharge summary [facility] Medical Records Department [address] [place] [address] Discharge Summary 04/30/25 1901 MR#: [id number] Acct: [id number] Name: MANSI CARO Rep #:[id number] 00 : 1955 70 From: Alonso Marte MD PCP: Marci Lopez DO Status:ADM I N Location: [place] [address] Providers Date of Admission: 04/20/25 Primary Care Physician: Dr. Marci Lopez DO Reason For Visit: GENERALIZED WEAKNESS Diagnosis Discharge Diagnosis (1) Debility: Status: Acute Code(s): R53.81 - Other malaise (2) CVA (cerebral vascular accident): Status: Acute Code(s): I63.9 - Cerebral infarction, unspecified (3) HLD (hyperlipidemia): Status: Chronic Code(s): E78.5 - Hyperlipidemia, unspecified (4) Muscle spasm: Status: Acute Code(s): M62.838 - Other muscle spasm (5) Ischemic colitis: Status: Acute Code(s): K55.9 - Vascular disorder of intestine, unspecified (6) Calcium deficiency: Status: Acute Code(s): E58 - Dietary calcium deficiency (7) Vitamin D deficiency: Status: Acute Code(s): E55.9 - Vitamin D deficiency, unspecified (8) Insomnia: Status: Acute Code(s): G47.00 - Insomnia, unspecified (9) Chronic systolic heart failure: Status: Chronic Code(s): I50.22 - Chronic systolic (congestive) heart failure (10) Irritable bowel syndrome: Status: Acute Code(s): K58.9 - Irritable bowel syndrome, unspecified (11) Depression: Status: Acute Code(s): F32.A - Depression, unspecified (12) Diabetes mellitus: Status: Acute Code(s): E11.9 - Type 2 diabetes mellitus without complications (13) GERD (gastroesophageal reflux disease): Status: Acute Code(s): K21.9 - Gastro-esophageal reflux disease without esophagitis (14) Overactive bladder: Status: Acute Code(s): N32.81 - Overactive bladder Plan 70 year old female with below past medical history hospitalized for weakness, noreversible cause ofweakness found, admitted to TCU with debility, here for rehabilitation, strengthening, prior ot discharge home with . * Debility - PT/OT. * Pain - Tylenol 1000mg q6 prn pain (1-10). * Bowel - Miralax 17gm daily, Linzess 145mcg daily. * Adult immunization - Administer pneumonia vaccine, covid vaccine, flu vaccine as appropriate. * DVT prophylaxis - Hold, on dual antiplatelet therapy. * Chronic HFrEF - Metoprolol succinate 25mg daily, Furosemide 20mg daily prn 2lb weight gain. * GERD - Pantoprazole 40mg daily, Levsin 0.125mg tid prn. * Diabetes Mellitus II - Metformin 500mg daily. * Dry Eyes - Artificial tears 1 gtt ou q1 prn. * Anxiety - Lamictal 100mg daily. * Iron deficiency anemia - Ferrous sulfate 325mg daily, Dr. Lockett planning EGD/colonoscopy 04/25/2025. * Vitamin D deficiency - D3 25mcg daily. * Stroke - Aspirin 81mg daily, Plavix 75mg daily. * Hyperlipidemia - Rosuvastatin 20mg qhs. * Muscle spasm - Baclofen 5mg daily. * Shortness of breath - Albuterol mdi prn. * Tardive dyskinesia - Austedo XR 6mg daily. * Dysuria - Pyridium 100mg tid prn, Dr. Garcia planning office cystoscopy. The following psychotropic medication was present on admission: Escitalopram 5mgdaily. Psychotropic medication therapy is indicated for a diagnosis of: Major Depression. Based on my clinical evaluation, continuation of the medication is necessary at this time. Gradual dose reduction plan (select one): ____ GDR will be attempted. Will monitor patient symptoms and behaviors in response to GDR. ___x_ GRD contraindicated. 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 The following psychotropic medication was present on admission: Trazodone 50mg qhs. Psychotropic medication therapy is indicated for a diagnosis of: Insomnia. Based on my clinical evaluation, continuation of the medication is necessary at this time. Gradual dose reduction plan (select one): ____ GDR will be attempted. Will monitor patient symptoms and behaviors in response to GDR. __x__ GRD contraindicated. 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 The following psychotropic medication was present on admission: Clonazepam 1mg qhs. Psychotropic medication therapy is indicated for a diagnosis of: Anxiety/insomnia. Based on my clinical evaluation, continuation of the medication is necessary at this time. Gradual dose reduction plan (select one): ____ GDR will be attempted. Will monitor patient symptoms and behaviors in response to GDR. __x__ GRD contraindicated. 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 Medications at Discharge Home Medications clonazepam 1 [...] tablet 20 mg PO QHS cholesterol 02/21/24 furosemide 20 mg tablet 20 mg PO QDAY PRN for 2lb weight gain 06/13/24 escitalopram oxalate 5 mg tablet 5 mg PO QDAY Mood 11/28/24 polyethylene glycol 3350 17 gram/dose oral powder (Miralax) 17 g PO DAILY Constipation 11/28/24 metformin 500 mg tablet 500 mg PO QDAY Diabetes 01/18/25 metoprolol succinate 25 mg tablet,extended release 24 hr (Toprol XL) 25 mg PO QDAY BP 01/18/25 lamotrigine 100 mg tablet 100 mg PO QDAY Anxiety 01/23/25 polyethylene glycol 400 0.25 % eye gel drops (Blink Gel Tears) 1 drp ophthalmic (eye) .q1hr PRN Dryeyes 01/23/25 ferrous sulfate 325 mg (65 mg iron) tablet (Feosol) 325 mg PO QDAY Supplement 02/13/25 linaclotide 145 mcg capsule (Linzess) 145 mcg PO QAM Constipation #60 caps 02/14/25 hyoscyamine sulfate 0.125 mg tablet 0.125 mg PO TID PRN dyspepsia #90 tabs 03/05/25 clopidogrel 75 mg tablet 75 mg PO .COMPLEX Antiplatelet 04/19/25 deutetrabenazine 6 mg tablet,extended release 24 hr (Austedo XR) 6 mg PO DAILY involuntary Movements 04/19/25 phenazopyridine 100 mg tablet 100 mg PO TID PRN PRN bladder pain 04/19/25 mesalamine 1.2 gram tablet,delayed release 2.4 g (2 x 1.2 gram) PO DAILY 30 days#60 tabs 04/30/25 oxycodone 5 mg tablet 5 mg PO Q6H PRN PRN Pain Score 6-10 7 days #28 tabs 04/30/25 pantoprazole 40 mg tablet,delayed release 40 mg PO DAILY 30 days #30 tabs 04/30/25 Hospital Course Operations None Procedures Colonoscopy and EGD Summary of Care Provided Minutes Spent on Discharge: 35 Hospital Course: 70 year old female with below past medical history hospitalized for weakness, noreversible cause ofweakness found, admitted to TCU with debility, here for rehabilitation, strengthening, prior ot discharge home with . 04/25/2025 Dr. Lockett EGD: Impressions : - Normal esophagus. - No gross lesions in the entire stomach. - Acquired duodenal stenosis. Biopsied. 04/25/2025: Dr. Lockett colonoscopy: Impressions : - Localized moderate inflammation was found in the rectum secondary to colitis. Biopsied. 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 Biopsied. - Diverticulosis in the recto-sigmoid colon, in the sigmoid colon, in the transverse colon and in the ascending colon. - The examined portion of the ileum was normal. Discharge home with 05/03/2025, [facility]. Physical Exam Const alert General Appearance: cooperative [...] Appearance: appropriate Weight / BMI Weight Weight: 60.963 kg Body Mass Index (BMI) 20.4 ABG / Lab / Microbiology Data 04/30/25 05:07 04/30/25 05:07 Laboratory: Laboratory Results - last 24 hr 04/30/25 05:07: WBC 6.4, RBC 3.16 L, Hgb 9.8 L, Hct 29.9 L, MCV 94.6, MCH 31.0, MCHC 32.8, RDW Std Deviation 46.4 H, RDW Coeff of Edita 13.3, Plt Count 212, MPV 10.4, Immature Gran % (Auto) 0.500, Neut% (Auto) 55.4, Lymph % (Auto) 28.3, Upton % (Auto) 10.9 H, Eos % (Auto) 4.4, Baso % (Auto) 0.5, Absolute Neuts (auto) 3.6, Absolute Lymphs (auto) 1.82, Nucleated RBC % 0, Sodium 139, Potassium 4.1, Chl oride 105, Carbon Dioxide 25.1, Anion Gap 9, BUN 16, Creatinine 0.94, Estim Creat Clear Calc 52.06,Est GFR (MDRD) Non-Af 65, BUN/Creatinine Ratio 16.8, Glucose 142 H, Calcium 8.7 04/30/25 05:54: POC Glucose 132 H 04/30/25 16:28: POC Glucose 188 H D/C Instructions Discharge Diet: No restrictions Discharge Activity: Return to Normal Activity, May Shower and Use Walker Weight Bearing Status: Weight bearing as tolerated Call your doctor if you observe: Fever of 101 or Higher, Inability to urinate, Inability to have a bowel movement, Shortness of breath, Dizziness, Fainting spells, Swelling in the ankles, Chest pain and Uncontrolled pain DC O2, CPAP, BIPAP Needs Home O2 Discharge instructions: No Additional Instructions: Discharge home with 05/03/2025, [facility]. Please Follow Up With: ANNE When: As scheduled. Meaningful Use Info Meaningful Use Meaningful Use [...] Simvastatin 80mg Discharge Plan Admission Admit Date/Time: 04/20/25 16:10 Primary Reason for Your Visit: Debility. Attending Provider: Alonso Marte Chi Primary Care Provider: Marci Lopez Instructions Additional Instructions / Restrictions: Discharge home with 05/03/2025, [facility]. Discharge Orders/Prescriptions Prescriptions: New pantoprazole 40 mg Tablet,Delayed Release (Dr/Ec) 40 mg PO DAILY 30 Days Qty: 30 0RF oxycodone 5 mg Tablet 5 mg PO Q6H PRN PRN (Reason: Pain Score 6-10) 7 Days Qty: 28 0RF mesalamine 1.2 gram Tablet,Delayed Release (Dr/Ec) 2.4 g PO DAILY 30 Days Qty: 60 0RF Continued furosemide 20 mg tablet 20 mg PO QDAY PRN (Reason: for 2lb weight gain) metformin 500 mg tablet 500 mg PO QDAY metoprolol succinate [Toprol XL] 25 mg tablet extended release 24 hr 25 mg PO QDAY Blink Gel Tears 0.25 % drops,gel 1 drp ophthalmic (eye) .q1hr PRN (Reason: Dry eyes) lamotrigine 100 mg tablet 100 mg PO [...] 20 mg tablet 20 mg PO QHS Austedo XR 6 mg tablet extended release 24 hr 6 mg PO DAILY phenazopyridine 100 mg tablet 100 mg PO TID PRN PRN (Reason: bladder pain) clopidogrel 75 mg Tablet 75 mg PO .COMPLEX Rx Instructions: 75 mg orally Wednesday, Wednesday, Wednesday; hyoscyamine sulfate 0.125 mg tablet 0.125 mg PO TID PRN (Reason: dyspepsia) Qty: 90 2RF Discontinued acetaminophen 500 mg tablet 500 mg PO Q6H PRN PRN (Reason: Pain Score 1-10) docusate sodium 100 mg capsule 100 mg PO DAILY PRN (Reason: constipation) pantoprazole 40 mg tablet,delayed release (DR/EC) 40 mg PO DAILY baclofen 5 mg tablet 5 mg PO QDAY Patient Comments: PLEASE SEE ATTACHED FOR DETAILED DIRECTIONS albuterol sulfate 90 mcg/actuation HFA aerosol inhaler 1 puff inhalation Q6H PRN (Reason: shortness of breath or wheezing) Qty: 8.5 0RF oxycodone-acetaminophen 5-325 mg tablet 1 tab PO Q6H PRN PRN (Reason: severe pain) Referrals / Follow Up: Marci Lopez DO [Primary Care Provider] - Friend,DO Shan [Med Staff - Active Staff] - Within 1 Month (Colitis.) Disposition Disposition (needs filled in before D/C Order can be placed): Home, Self Care 04/30/251912 Cosigner Signature (if applicable): CC: Dr. Alonso Marte MD; Marci Lopez DO~ Signed [facility]06[facility]09[facility] Consult note Author Melanie Muñoz [facility] Note Date/Time April 25, 2025 8:26a m [facility] Medical Records Department [address] [place] [address] Anesthesia Postop Eval II 04/25/2523 MR#: [id number] Acct: [id number] Name: MANSI CARO Rep #:[id number] : 1955 70 From: Melanie Muñoz CRNA PCP: Marci Lopez DO Status:REG S DC Y Race: C Location: [place] [address] Anesthesia Postop Eval I Sum Postop Eval Completion status Anesthesia document: Postop Eval 1 completed: Yes Anesthesia Postop Eval I Summary Anesthesia Postop Eval I Summary: Anesthesia Postop Eval I: Assessment Summary Airway patent Yes 04/25/25 07:57 [email or web address] Spontaneous unlabored Yes 04/25/25 07:57 [email or web address] respirations Mental status Asleep 04/25/25 07:57 [email or web address] nausea No 04/25/25 07:57 [email or web address] Vomiting No 04/25/25 07:57 [email or web address] Anesthesia Postop Eval I: Fluid Summary Crystalloid volume administer 500 04/25/25 07:57 [email or web address] (ml) Colloids volume administered ( ml) Blood Product volume administered (ml) Total IV fluid infused 500 04/25/25 07:57 [email or web address] Anesthesia Postop Eval I: Summary Notes Anesthesia Complication No 04/25/25 07:57 [email or web address] Anesthesia Complication Comment: Post-operative progress note Anesthesia: Postop Eval II Evaluation Mental status: Awake Pain Level: 0 nausea: No Vomiting: No 04/25/25 0823 <Electronically signed by Melanie Sands a WORKFORCE CONSULTANT> Date _ Melanie Sirca WORKFORCE CONSULTANT Cosigner Signature: Date CC: ~ Signed [facility] Work Phone: [phone]) 815-487206-04-2025 Consult note Author José Miguel Heller [facility] Note Date/Time April 25, 2025 7:57a m [facility] Medical Records Department [address] [place] [address] [place] [address] Anesthesia Postop Eval I 04/25/25 0756 MR#: [id number] Acct: [id number] Name: GORDOMANSI YANELIS Rep #:[id number] : 1955 70 From: José Miguel Heller PCP: Marci Lopez DO Status:REG S DC Y Race: C Location: [place] [address] Anesthesia: Postop Eval I Current Vital Signs Temperature: 97 F Pulse Rate: 60 Blood Pressure: 87/41 Respiratory Rate: 16 Pulse Ox: 97 Oxygen Delivery Method: Room Air Assessment Airway patent: Yes Spontaneous unlabored respirations: Yes Mental status: Asleep nausea: No Vomiting: No Anesthesia Complication: No Fluid Hydration Crystalloid volume administer (ml): 500 Total IV fluid infused: 500 Progress Note Anesthesia document: Postop Eval 1 completed: Yes 04/25/25 075 <Electronically signed by José Miguel Heller > Date _ José Miguel Heller Cosigner Signature: Date CC: ~ Signed [facility] Work Phone: [phone]) [phone] Consult note Author Palmer Gallo [facility] Note Date/Time April 25, 2025 7:06a m [facility] Medical Records Department [address] [place] [address] Pre-Anesthesia Evaluation 04/25/25 0701 MR#: [id number] Acct: [id number] Name: MANSI CARO Rep #:[id number] : 1955 70 From: Palmer Gallo MD PCP: Marci Lopez DO Status:REG S DC Y Race: C Location: [place] [address] ASA Classification* ASA Classification ASA Classification: 4 (Hx HTN, GERD, CHF, CKD, hx PE, CPalsy, PFO, hx stroke, DM, tremors, has pace maker. Induce carefully and slowly ) Assessment & Plan Anesthesia* Anesthesia Assessment Anesthesia Assessment: Discussed sedation and/or anesthesia options, risks, benefits, and alternatives with patient/parents/legal guardian/POA. Questions invited. The patient/parents/legal guardian/POA seems to understand and agrees to proceedwith anesthesia plan. Reviewed the physical assessment, medical history, allergy history and patient home medications list prior to surgery/procedure/anesthetic and documented any changes. Performed airway and anesthesia risk assessments. Anesthesia Type Anesthesia Type: General History Source History Obtained from:: Patient and Chart Anesthesia Focused Assessment* Temperature: 98.0 F Pulse Rate: 73 Blood Pressure: 134/55 Respiratory Rate: 16 Pulse Ox: 96 Oxygen Delivery Method: Room Air Airway Assessment Mouth opens: >3 cm Mallampati Score: II Neck Range of motion (ROM): Full ROM Focused Labs Anesthesia Preop lab: CBC WBC 5.9 K/mm3 (4.4-11.0) 04/21/25 05:16 04/21/25 RBC 3.12 M/mm3 (4.2-5.4) L 04/21/25 05:16 04/21/25 Hgb 9.7 g/dL (12.0-15.0) L 04/21/25 05:16 04/21/25 Hct 30.3 % (37-47) L 04/21/25 05:16 04/21/25 Plt Count 168 K/mm3 (150-450) 04/21/25 05:16 04/21/25 CHEMISTRY Potassium 4.3 mmol/L (3.3-5.1) 04/21/25 05:16 04/21/25 Sodium 142 mmol/L (133-145) 04/21/25 05:16 04/21/25 Magnesium 1.6 mg/dL (1.5-2.2) 04/19/25 03:45 04/19/25 Phosphorus 3.4 mg/dL (2.5-4.9) 07/04/24 07:41 07/04/24 BUN 14 mg/dL (4-19) 04/21/25 05:16 04/21/25 Creatinine 0.95 mg/dL (0.70-1.20) 04/21/25 05:16 04/21/25 Glucose 185 mg/dL (70-99) H 04/21/25 05:16 04/21/25 POC Glucose 128 mg/dL (74-106) H 04/24/25 16:52 04/24/25 TSH 4.050 uIU/mL (0.300-4.200) 04/19/25 03:45 05/08/16 COAG PT 13.3 SECONDS (11.7-14.9) 09/09/24 14:50 Pre-Assessment Diagnosis/Proposed Procedure Planned Operative Procedure(s): COLONOSCOPY/EGD Anesthesia History 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 When Was Last Pacemaker Check 202211/13/24 13:46 QUESTION #4 FULL TEXT: You/Your Family Experience fever (hyperthermia) with Anesthesia Last Oral Intake Last Oral intake: Last Oral Intake NPO since 05:00 04/25/25 06:48 Meds taken in AM with sips of water? Meds patient instructed to LAST PLAVIX/ASA 6/2 AT 1000 04/25/25 06:48 take am of surgery PONV PONV - carpet layer helper: PONV - carpet layer helper Female Yes 04/23/25 16:09 HX of Motion Sickness No 04/23/25 16:09 HX of N/V After Surgery No 04/23/25 16:09 Non-Smoker No 04/23/25 16:09 Duration of Surgery greater No 04/23/25 16:09 than 60 minutes Number of Risk Factors 1 04/23/25 16:09 PONV Score Low Risk 04/23/25 16:09 Height & Weight Height & Weight: Anesthesia: Height & Weight Height 5 ft 8 in 04/25/25 06:48 Weight: 134.4 kg 04/25/25 06:48 Body Mass Index (BMI) 45.0 04/25/25 06:48 Respiratory Assessment Respiratory Assessment - carpet layer helper: Respiratory Tract Infection Hx - carpet layer helper Hx Respiratory Tract Infection No 04/23/25 16:09 STOP Sleep Apnea STOP Sleep Apnea - carpet layer helper: STOP Sleep Apnea - carpet layer helper Hx Hypertension Yes: CONTROLLED ON MED 04/23/25 16:09 Hx Sleep Apnea No 04/23/25 16:09 CPAP No 04/23/25 16:09 BIPAP No 04/23/25 16:09 Do you snore loudly (louder No 04/23/25 16:09 than talking or can be heard Do you often feel tired/ No 04/23/25 16:09 fatigued/ sleepy during daytime? Has anyone observed you stop No 04/23/25 16:09 breathing during sleep? STOP Results Negative 04/23/25 16:09 QUESTION #5 FULL TEXT : Do you snore loudly (louder than talking or can be heard through closed doors)? 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 Specify any problems Hx of Preganancy in last 3 No 04/23/25 16:09 Months Nurse Filling Out Transfusion VCHRISTIN 04/23/25 16:09 & Questions: Date: 04/23/25 04/23/25 16:09 Time: 16:10 04/23/25 16:09 Patient unable to answer at this time (ie. confused, unrespo /Reproduction History /Reproductive History - carpet layer helper: /Reproductive Hx- carpet layer helper Hx Now No 04/23/25 16:09 Gestational Age (in weeks): EDC: Hx Hx Para Hx Section SAB No 04/23/25 16:09 Active Medications Active Medications: Current Medications Generic Name Dose Route Start Last Admin Trade Name Freq PRN Reason Stop Dose Admin Lactated Ringer's 1,000 mls @ 15 mls/hr 04/25/25 06:30 04/25/25 06:57 IV 15 mls/hr .Q48H VERONA Administration PFSH Medical History Back pain History of Holter monitoring History of stress test History of echocardiogram Cardiology follow-up encounter Ischemic colitis History of left heart catheterization History of mechanical ventilation Cardiogenic pulmonary edema Acute hypoxic respiratory failure Multiple lung nodules Major depressive disorder Left bundle branch block NSTEMI (non-ST elevated myocardial infarction) Diabetic peripheral vascular disease Diabetic nephropathy Chronic kidney disease (CKD) Bleeding ulcer Dyslipidemia Chronic systolic heart failure Pacemaker Congestive heart failure (CHF) Cerebral palsy Anxiety and depression Heart failure with reduced ejection fraction GERD (gastroesophageal reflux disease) Insomnia Transient ischemic attack AV node dysfunction Ischemic cardiomyopathy Presence of biventricular implantable cardioverter-defibrillator Ulcer Restless legs High cholesterol Anxiety Former smoker ICD (implantable cardioverter-defibrillator) in place Coronary artery disease CVA (cerebral vascular accident) PFO (patent foramen ovale) Cardiac resynchronization therapy defibrillator ([employer]ATIONS-D) in place Myocarditis Hyperlipidemia Hypertension Home Medications ?Medication ?Instructions ?Recorded ?Last Taken ?Type clonazepam 1 mg tablet 1 mg PO QHS anxiety 11/18/14 07/02/24 History trazodone 50 mg tablet 50 mg PO DAILY Anxiety 11/1804/19/25 20:30 History cholecalciferol (vitamin D3) 25 50 mcg (2 x 25 mcg (1, 000 unit)) 09/30/23 04/19/25 20:30 Rx mcg (1,000 unit) tablet PO QHS supplement #0 tabs aspirin 81 mg tablet,delayed 81 mg PO .COMPLEX heart 1 12/01/22 04/23/25 History release Held on 04/25/25. Instructions: HOLD rosuvastatin 20 mg tablet 20 mg PO QHS cholesterol 12/1504/19/25 20:30 History acetaminophen 500 mg tablet 500 mg PO Q6H PRN PRN Pain Score 06/13/24 07/01/24 History 1-10 docusate sodium 100 mg capsule 100 mg PO DAILY PRN con stipation 06/13/24 07/02/24 History furosemide 20 mg tablet 20 mg PO QDAY PRN for 2lb we ight 06/13/24 06/19/24 History gain pantoprazole 40 mg tablet,delayed 40 mg PO DAILY GERD 07/17/24 04/20/25 08:50 History release baclofen 5 mg tablet 5 mg PO QDAY muscle spasms 0 08/03/24 Unknown History albuterol sulfate 90 mcg/actuation 1 puff inhalation Q 6H PRN 09/09/24 Unknown Rx aerosol inhaler shortness of breath or wheez ing #8.5 grams escitalopram oxalate 5 mg tablet 5 mg PO QDAY Mood 06/1504/20/25 08:50 History polyethylene glycol 3350 17 17 g PO DAILY Constipation 11/28/24 Unknown History gram/dose oral powder (Miralax) metformin 500 mg tablet 500 mg PO QDAY Diabetes 12/24 06/15 Unknown History metoprolol succinate 25 mg 25 mg PO QDAY BP 01/18/25 0 04/20/25 10:35 History tablet,extended release 24 hr (Toprol XL) lamotrigine 100 mg tablet 100 mg PO QDAY Anxiety 01/2304/20/25 08:50 History polyethylene glycol 400 0.25 % eye 1 drp ophthalmic (e ye) .q1hr PRN 01/23/25 Unknown History gel drops (Blink Gel Tears) Dry eyes ferrous sulfate 325 mg (65 mg 325 mg PO QDAY Supplemen t 02/13/25 04/20/25 08:30 History iron) tablet (Feosol) linaclotide 145 mcg capsule 145 mcg PO QAM Constipatio n #60 02/14/25 Unknown Rx (Linzess) caps hyoscyamine sulfate 0.125 mg tablet 0.125 mg PO TID NE N dyspepsia #90 03/05/25 Unknown Rx tabs clopidogrel 75 mg tablet 75 mg PO .COMPLEX Antiplatel et 04/19/25 04/23/25 History Held on 04/25/25. Instructions: HOLD deutetrabenazine 6 mg 6 mg PO DAILY involuntary Mo vements 04/19/25 04/20/25 08:50 History tablet,extended release 24 hr (Austedo XR) oxycodone-acetaminophen 5 mg-325 1 tab PO Q6H PRN PRN severe pain 04/19/25 Unknown History mg tablet phenazopyridine 100 mg tablet 100 mg PO TID PRN PRN bl adder pain 04/19/25 Unknown History Allergy/AdvReac Type Severity Reaction Status Date / Time No Known Allergies Allergy Verified 04/25/25 06:44 Family History Father Heart disease Myocardial infarction Mother Anxiety and depression Suicide and self-inflicted injury from suicide age 52. Surgical History History of cardiac catheterization Presence of stent in coronary artery History [...] home: Yes additional social history: - Song Review of Systems (Anesthesia) ROS Narrative System reviewed and no additional complaints, except as documented. Physical Exam Const alert and oriented x3 Nutritional Appearance: morbidly obese Resp normal respiratory effort, normal air movement and clear to auscultation bilaterally Cardio regular rate, regular rhythm, no murmurs and diaphoretic 04/25/25 0706 <Electronically signed by Palmer Gallo MD> Date _ Palmer Gallo MD Cosigner Signature: Date CC: ~ Signed [facility] Work Phone: [phone]) 374-468906-04-2025 History and physical note Author Shan Friend [facility] Note Date/Time April 25, 2025 6:47a m [facility] Medical Records Department [address] [place] [address] History & Physical Exam 04/25/25 0645 MR#: [id number] Acct: [id number] Name: MANSI CARO Rep #:[id number] : 1955 70 From: Shan Lockett DO PCP: Marci Lopez DO Status:REG S DC Location: [place] [address] HPI - General General Date of Admission: 04/25/25 Date of Service: 04/25/25 Chief Complaint: Anemia and abdominal pain HPI Narrative MANSI CARO, is a 70 F who presents for endoscopic evaluation [facility] established 8.34 after hospitalization for bloody diarrhea revealing ischemic colitis. Colonoscopy 07.05.24; - Preparation of the colon was fair. - Diverticulosis in the recto-sigmoid colon, in the sigmoid colon and in the descending colon. - No specimens collected. Biochemical work up 07.17.24; hgb 10.2 L, APTT 23.6, Iron 40 L , TIBC 239 Last OV 1.21.25 Pt with continues abd pain and constipation. Taking miralax daily. Pt referred to pain management and women's care. Start Linzess 72 mcg daily. OV 02.14.25; Pt recommended to f/u with GI for FOBT+. Women's care did not believe her pain to be boiler tender in nature. She endorses some lower abd pain today. SHe is having a bm every two days while on Linzess 72 mcg and miralax. [facility] Medical History Back pain History of Holter monitoring History of stress test History of echocardiogram Cardiology follow-up encounter Ischemic colitis History of left heart catheterization History of mechanical ventilation Cardiogenic pulmonary edema Acute hypoxic respiratory failure Multiple lung nodules Major depressive disorder Left bundle branch block NSTEMI (non-ST elevated myocardial infarction) Diabetic peripheral vascular disease Diabetic nephropathy Chronic kidney disease (CKD) Bleeding ulcer Dyslipidemia Chronic systolic heart failure Pacemaker Congestive heart failure (CHF) Cerebral palsy Anxiety and depression Heart failure with reduced ejection fraction GERD (gastroesophageal reflux disease) Insomnia Transient ischemic attack AV node dysfunction Ischemic cardiomyopathy Presence of biventricular implantable cardioverter-defibrillator Ulcer Restless legs High cholesterol Anxiety Former smoker ICD (implantable cardioverter-defibrillator) in place Coronary artery disease CVA (cerebral vascular accident) PFO (patent foramen ovale) Cardiac resynchronization therapy defibrillator ([employer]-D) in place Myocarditis Hyperlipidemia Hypertension Home Medications ?Medication ?Instructions ?Recorded ?Last Taken ?Type clonazepam 1 mg tablet 1 mg PO QHS anxiety 11/18/14 07/02/24 History trazodone 50 mg tablet 50 mg PO DAILY Anxiety 11/1804/19/25 20:30 History cholecalciferol (vitamin D3) 25 50 mcg (2 x 25 mcg (1, 000 unit)) 09/30/23 04/19/25 20:30 Rx mcg (1,000 unit) tablet PO QHS supplement #0 tabs aspirin 81 mg tablet,delayed 81 mg PO .COMPLEX heart 1 12/01/22 04/20/25 08:50 Hi story release rosuvastatin 20 mg tablet 20 mg PO QHS cholesterol 12/1504/19/25 20:30 History acetaminophen 500 mg tablet 500 mg PO Q6H PRN PRN Pain Score 06/13/24 07/01/24 History 1-10 docusate sodium 100 mg capsule 100 mg PO DAILY PRN con stipation 06/13/24 07/02/24 History furosemide 20 mg tablet 20 mg PO QDAY PRN for 2lb we ight 06/13/24 06/19/24 History gain pantoprazole 40 mg tablet,delayed 40 mg PO DAILY GERD 07/17/24 04/20/25 08:50 History release baclofen 5 mg tablet 5 mg PO QDAY muscle spasms 0 08/03/24 Unknown History albuterol sulfate 90 mcg/actuation 1 puff inhalation Q 6H PRN 09/09/24 Unknown Rx aerosol inhaler shortness of breath or wheez ing #8.5 grams escitalopram oxalate 5 mg tablet 5 mg PO QDAY Mood 06/1504/20/25 08:50 History polyethylene glycol 3350 17 17 g PO DAILY Constipation 11/28/24 Unknown History gram/dose oral powder (Miralax) metformin 500 mg tablet 500 mg PO QDAY Diabetes 12/24 06/15 Unknown History metoprolol succinate 25 mg 25 mg PO QDAY BP 01/18/25 0 04/20/25 10:35 History tablet,extended release 24 hr (Toprol XL) lamotrigine 100 mg tablet 100 mg PO QDAY Anxiety 01/2304/20/25 08:50 History polyethylene glycol 400 0.25 % eye 1 drp ophthalmic (e ye) .q1hr PRN 01/23/25 Unknown History gel drops (Blink Gel Tears) Dry eyes ferrous sulfate 325 mg (65 mg 325 mg PO QDAY Supplemen t 02/13/25 04/20/25 08:30 History iron) tablet (Feosol) linaclotide 145 mcg capsule 145 mcg PO QAM Constipatio n #60 02/14/25 Unknown Rx (Linzess) caps hyoscyamine sulfate 0.125 mg tablet 0.125 mg PO TID NE N dyspepsia #90 03/05/25 Unknown Rx tabs clopidogrel 75 mg tablet 75 mg PO .COMPLEX Antiplatel et 04/19/25 04/20/25 13:05 History deutetrabenazine 6 mg 6 mg PO DAILY involuntary Mo vements 04/19/25 04/20/25 08:50 History tablet,extended release 24 hr (Austedo XR) oxycodone-acetaminophen 5 mg-325 1 tab PO Q6H PRN PRN severe pain 04/19/25 Unknown History mg tablet phenazopyridine 100 mg tablet 100 mg PO TID PRN PRN bl adder pain 04/19/25 Unknown History Allergy/AdvReac Type Severity Reaction Status Date / Time No Known Allergies Allergy Verified 04/25/25 06:44 Family History Father Heart disease Myocardial infarction Mother Anxiety and depression Suicide and self-inflicted injury from suicide age 52. Surgical History History of cardiac catheterization Presence of stent in coronary artery History [...] social history: - Song FUENTES Constitutional Constitutional: Denies fatigue, fever(s), poor appetite, weight gain or weight loss Gastrointestinal Gastrointestinal: Denies belching, bloating, change in bowel habits, change in stool character, chewing difficulty, coffee ground emesis, constipation, cramping, diarrhea, dyspepsia, dysphagia, early satiety, excessive flatus, fecalincontinence, heartburn, hematemesis, hematochezia, hemorrhoids, loose stools, melena, nausea, odynophagia, rectal bleeding, tenesmus, vomiting or weight changes Physical Exam Const alert, oriented x3, no apparent distress and healthy appearing General Appearance: cooperative GI normal to inspection, nondistended, normoactive bowel sounds, soft to palpation,non-tender and non-distended Percussion: normal to percussion Rectal Exam: deferred Assessment & Plan Assessment/Plan (1) Irritable bowel syndrome: (2) Chronic anemia: (3) Ischemic colitis: (4) Blood in stool: PLAN: Assessment and Plan Assessment and Plan (1) Chronic constipation: Status: Chronic Plan: This is a 70 yo female pt here today for f/u regarding chronic constipation, abdpain and FOBT+. Pt recently seen by PCP who ordered stool testing which showed blood in her stool. Pt has a PMHx significant for ischemic colitis. Due to this she will undergo colonoscopy and EGD. She has been taking Linzess 72 mcg daily and miralax with a bm every two days. I will increase her dose to 145 mcg daily.[facility] referred her to [facility]rology. I recommended she make this appointment for further evalaution. -EGD and colonoscopy -Increase Linzess -Make appointment with urology -f/u after procedure (2) Abdominal pain: Status: Acute Qualifiers: Abdominal location: lower abdomen, unspecified Qualified Code(s): R10.30 - Lower abdominal pain, unspecified (3) Anemia: Status: Chronic Qualifiers: Anemia type: iron deficiency Iron deficiency anemia type: chronic bloodloss Qualified Code(s): D50.0 - Iron deficiency anemia secondary to blood loss (chronic) (4) Blood in stool: Status: Acute Medications: New linaclotide (Linzess) 145 mcg PO QAM 60 caps 2RF 04/25/25 0647 <Electronically signed by Shan Lockett DO> Cosigner Signature (if applicable): CC: Marci Lopez DO; Shan Lockett DO~ Signed [facility] Work Phone: [phone] 370-751806-04-2025 Procedure [facility] 04-25-2025 Procedure [facility]06-04-2025 Procedure note [facility]06-04-2025 Procedure [facility] 04-25-2025 [facility]06-02-2025 History of Present illness Narrative* Deisi Post - 04/23/2025 10:27 AM EDT [facility] Assessment Medication(s): Austedo XR [...] progressing towards achieving therapeutic goals based on medication- specific laboratory parameters, disease state markers and outcomes. Office/provider notes have been reviewed prior to dispensing the medication. Ship Wirer Assessment Patient confirmed: Yes Med/dose confirmed: Yes Supplies needed: No supplies needed Missed doses: No Estimated days supply on hand: 10 Next cycle/dose due: 04/24/25 Copay amount: 0 Payment confirmed: Yes Delivery method: FedEx Signature required: No Delivery address: [facility] [address] Delivery date: 04/26/25 Questions or concerns for [...] facility-administered medications on file prior to visit. [facility] RX SPECIALTY CLINICAL ASSESSMENT - [...] thoughts of self harm, UTI or blood inurine.Worsening of movements/ confusion, changes in eyesight Monitor: [...] monitor patients closely for evidence of excessive [employer] depression (ie, respiratory depression, hypotension, sedation, or coma). Vaccines Est. Tx Plan Start Date: No information available Estimated Start Date Info: No information available Est. Estimated Treatment Duration: No information available Deisi Post CPhT [facility], Inflammatory P: [phone] F: [phone] [facility] NoteHNO ID: [id number] Author: WESLEY HAYES RPh Service: ? Author Type: ? Type: Progress Notes Filed: 04/25/2025 07:55 Note Text: [facility] Medication(s): [...] been reviewed prior to dispensing the medication. Wesley Hayes, PharmD, BCPS, CSP, MSCS Clinical Pharmacist [facility] P: ; F: Pool: P CC [facility] 3 Ship Wirer Assessment Patient confirmed: Yes Med/dose confirmed: Yes Supplies needed: No supplies needed Missed doses: No Estimated days supply on hand: 10 Next cycle/dose due: 04/24/25 Copay amount: 0 Payment confirmed: Yes Delivery method: FedEx Signature required: No Delivery address: [address] [place] [address] Delivery date: 04/26/25 Questions or concerns for [...] facility-administered medications on file prior to visit. [facility] SPECIALTY CLINICAL ASSESSMENT - NEUROLOGY V7: Assessment to use: Refill Assessment of injection issues or necrosis at injection sites: N/A Screening for infection: Yes Drug specific assessments, as appropriate: Yes Current medication list (including drug interaction assessment): Yes Experience of adverse reactions to the medication: Yes Date of influenza vaccination reminder: 03/28/2025 Date [...] be combined if alternative treatment options are inadequa (more content not included)...[facility] 04-21-2025 Progress note Author Talat Cameron [facility] Note Date/Time April 21, 2025 6:13p m [facility] Medical Records Department [address] [place] [address] Progress Note - Pharmacy 04/21/25 1122 MR#: [id number] Acct: [id number] Name: MANSI CARO Rep #:[id number] : 1955 70 From: Talat Cameron PCP: Marci Lopez DO Status:ADM I N Location: [facility]CU [place] [address] Documented by User: Talat Cameron 04/21/25 12:12 TCU RX Drug Regimen Review Subjective/Objective Subjective/Objective Subjective: TCU admission. 70 year old female with below past medical history hospitalized for weakness, no reversible cause of weakness found, admitted to TCU with debility, here for rehabilitation, strengthening, prior to discharge home with . Objective: Allergies No Known Allergies Allergy (Verified 04/19/25 03:35) Current Medications Generic Name Dose Route Start Last Admin Trade Name Freq PRN Reason Stop Dose Admin Acetaminophen 1,000 mg 04/20/25 16:54 Acetaminophen 500 Mg Tablet PO Q6H PRN PRN Pain Score 1-10 Albuterol Sulfate 1 puff 04/20/25 17:56 Albuterol Ih (6.7 Gm) 1 Puff Inhaler INHALATION Q6H PRN shortness of breath or wheezing Aspirin 81 mg 04/22/25 10:00 Aspirin 81 Mg Tab.Chew PO QODAY [facility] Atorvastatin Calcium 40 mg 04/20/25 22:00 04/20/25 21:32 Atorvastatin Calcium 40 Mg Tablet PO 40 mg QHS [facility] Administration Baclofen 5 mg 04/21/25 08:00 04/21/25 09:00 Baclofen 10 Mg Tablet PO 5 mg DAILYCM [facility] Administration Cholecalciferol 50 mcg 04/20/25 22:00 04/20/25 21:32 Cholecalciferol (Vit D3) 25 Mcg Tablet (1,000 Units) PO 50 mcg QHS [facility] Administration Clonazepam 1 mg 04/20/25 22:00 04/20/25 21:32 Clonazepam 1 Mg Tablet PO 1 mg QHS [facility] Administration Clopidogrel Bisulfate 75 mg 04/23/25 10:00 Clopidogrel Bisulfate 75 Mg Tablet PO MoWeFr [facility] Escitalopram Oxalate 5 mg 04/21/25 10:00 04/21/25 09:02 Escitalopram Oxalate 10 Mg Tablet PO 5 mg DAILY [facility] Administration Ferrous Sulfate 325 mg 04/21/25 12:00 Ferrous Sulfate 325 Mg Tablet PO DAILY@1200 [facility] Furosemide 20 mg 04/20/25 16:41 Furosemide 20 Mg Tablet PO DAILY PRN PRN for 2lb weight gain Protocol Glycerin/Hypromellose/Polyethylene 1 drp 04/20/25 18:04 Glycerin/Hypromellose/Pfk955 15 Ml Bottle EACH EYE Q1H PRN PRN Dry eyes Hyoscyamine Sulfate 0.125 mg 04/20/25 18:01 Hyoscyamine Sulfate 0.125 Mg Tablet PO TID PRN dyspepsia Lamotrigine 100 mg 04/21/25 10:00 04/21/25 09:02 Lamotrigine 100 Mg Tablet PO 100 mg DAILY [facility] Administration Metformin HCl 500 mg 04/21/25 08:00 04/21/25 09:00 Metformin Hcl 500 Mg [facility] Metoprolol Succinate 25 mg 04/21/25 10:00 04/21/25 09:03 Metoprolol(Xl)Succ 25 Mg Tablet PO 25 mg DAILY [facility] Administration Protocol Non-Formulary Medication 145 mcg 04/21/25 10:00 Linaclotide [Linzess] PO QAM [facility] Oxycodone HCl 5 mg 04/20/25 18:07 Oxycodone 5 Mg Tablet PO Q6H PRN PRN Pain Score 6-10 Pantoprazole Sodium 40 mg 04/21/25 10:00 04/21/25 09:03 Pantoprazole Sodium 40 Mg Tablet PO 40 mg DAILY [facility] Administration Phenazopyridine HCl 95 mg 04/20/25 18:03 Phenazopyridine 95 Mg Tablet PO TID PRN PRN bladder pain Polyethylene Glycol 17 gm 04/21/25 10:00 04/21/25 09:02 Polyethylene Glycol 3350 17 Gm Packet PO 17 gm DAILY [facility] Administration Sodium Chloride 10 - 40 ml 04/20/25 16:48 04/20/25 21:33 0.9% Saline Lock 10 Ml Syringe IV 10 ml UD PRN Administration SALINE FLUSH Trazodone HCl 50 mg 04/20/25 22:00 04/20/25 23:07 Trazodone 50 Mg Tablet PO 50 mg QHS [facility] Administration Tuberculin PPD 0.1 ml 04/28/25 10:00 Tuberculin,Purif.Prot.Deriv. 50 Tu/Ml Vial ID 04/28/25 10:01 X1 ONE Problem List Diabetes mellitus (Acute) Irritable bowel syndrome (Acute) Calcium deficiency (Acute) CVA (cerebral vascular accident) (Acute) Ischemic colitis (Acute) Chronic systolic heart failure (Chronic) Insomnia (Acute) Overactive bladder (Acute) Muscle spasm (Acute) GERD (gastroesophageal reflux disease) (Acute) Vitamin D deficiency (Acute) Depression (Acute) Debility (Acute) HLD (hyperlipidemia) (Chronic) Vital Signs Temp Pulse Resp BP Pulse Ox O2 Del Method 99.9 F H 85 17 103/59 L 93 Room Air 04/21/25 08:47 04/21/25 09:03 04/21/25 08:47 04/21/25 08:47 04/21/25 08:15 04/21/25 08:47 Oxygen Delivery Method Room Air Weight: 61.262 kg Body Mass Index (BMI) 20.5 Sodium 142 mmol/L (133-145) 04/21/25 05:16 Potassium 4.3 mmol/L (3.3-5.1) 04/21/25 05:16 Chloride 107 mmol/L (98-108) 04/21/25 05:16 Carbon Dioxide 27.7 mmol/L (21.0-32.0) 04/21/25 05:16 Anion Gap 8 (5-15) 04/21/25 05:16 BUN 14 mg/dL (4-19) 04/21/25 05:16 Creatinine 0.95 mg/dL (0.70-1.20) 04/21/25 05:16 Est GFR (MDRD) Non-Af 64 (>60) 04/21/25 05:16 BUN/Creatinine Ratio 15.0 RATIO (10-20) 04/21/25 05:16 Glucose 185 mg/dL (70-99) H 04/21/25 05:16 Assessment/Plan: 1. Pain: acetaminophen 1000 mg Q6H PRN pain, oxycodone 5 mg PO Q6H PRN pain. The patient has not required any PRN doses of acetaminophen or oxycodone so far this admission. Please continue to monitor pain levels, for PRN medication usage, LFTs (AST/ALT = 19/21 U/L on 11/18/24), for constipation, respiratory depression, syncope/ataxia/falls, and dizziness/drowsiness. 2. Bowel: polyethylene glycol 17 grams PO daily, Linzess 145 mcg PO daily. Please continue to monitor for diarrhea, constipation, and bowel movements (last = BM on 04/21/25). 3. Chronic HFrEF: metoprolol succinate 25 mg PO daily, furosemide 20 mg PO daily PRN 2 lb weight gain. The patient has not required any PRN furosemide so far this admission. Please continue to monitor for s/s fo a heart failure exacerbation such as shortness of breath, leg swelling, JVD, renal function (serum creatinine = 0.95 mg/dL with creatinine clearance ~ 52 mL/min on 04/21/25), sodium levels (Na = 142 mmol/L on 04/21/25), potassium levels (K = 4.3 mmol/L on 04/21/25), calcium levels (Ca = 9.0 mg/dL on 04/21/25), heart rates (recent range = 60-85 beats/min), blood pressures (recent range = 94-193/40-91 mmHg), and for fatigue. 4. Dysuria: phenazopyridine 95 mg PO TID PRN bladder pain. The patient has not required any PRN doses of phenazopyridine so far this admission. Please continue to monitor for dysuria, and PRN medication usage. 5. GERD: pantoprazole 40 mg PO daily, hyoscyamine 0.125 mg PO TID PRN dyspepsia. The patient has not required any PRN doses of hyoscyamine so far this admission. Please continue to monitor heart rates (recent range = 60-85 beats/min), for flushing and palpitations, dizziness/drowsiness, for diarrhea that could indicate clostridium difficile infection, for s/s of GERD, and for s/s of bone resorption such as fractures. 6. Diabetes Mellitus II: metformin 500 mg PO daily. Please continue to monitor BG levels (recent range = 153-260 mg/dL), hemoglobin A1C levels (A1C = 7.0% on 02/22/24), renal function (serum creatinine = 0.95 mg/dL with creatinine clearance ~ 52 mL/min with eGFR = ~64 mL/min on 04/21/25), vitamin B12 levels (B12 = 1211 pg/mL on 07/17/24), as well as for GI distress with metformin administration. The patient's recent blood glucose readings have been elevated above her goal range, and the patient does not have a recent A1C to corroborate her readings. Please consider increasing metformin to 1000 mg PO daily and obtaining an A1C if clinically appropriate. 7. Hyperlipidemia: atorvastatin 40 mg PO QHS. Please continue to monitor lipid levels (cholesterol = 106 mg/dL with LDL = 36 mg/dL on 09/29/25), LFTs (AST/ALT = 19/21 U/L on 11/18/24), and for myalgias. Please consider ordering a lipid panel if clinically appropriate as the patient has not had one in > 1 year. 8. Stroke: aspirin 81 mg PO every other day, clopidogrel 75 mg PO daily. Please continue to monitor for s/s of stroke, for s/s of bleeding/excessive bruising, hemoglobin levels (Hgb = 9.7 g/dL on 04/21/25), platelet counts (Plt = 168 K/mm3 on 04/21/25), as well as for GI distress with aspirin administration. 9. Iron deficiency anemia: ferrous sulfate 325 mg PO daily. Please continue to monitor hemoglobin levels (Hgb = 9.7 g/dL on 04/21/25), iron levels (iron = 74 ug/dL on 01/22/25), as well as for GI distress with iron administration. 10. Vitamin D deficiency: cholecalciferol 50 mcg PO daily. Please continue to monitor vitamin D levels (vitamin D = 54.2 ng/mL on 03/02/24), and for s/s of vitamin D deficiency. 11. Dry eyes: artificial tears 1 drop in each eye every hour PRN dry eyes. The patient has not required any PRN doses of artificial tears so far this admission. Please continue to monitor for dry eyes and PRN medication administration. 12. Shortness of breath: albuterol 1 puff every 6 hours as needed for shortness of breath/wheezing. The patient has not required any PRN doses of albuterol so far this admission. Please continue to monitor for shortness of breath/wheezing and for PRN medication usage. 13. Muscle spasms: baclofen 5 mg PO daily. Please continue to monitor for muscle spasms, for confusion/dizziness/drowsiness/asthenia, nausea/vomiting, and blood pressures (recent range = 94-193/40-91 mmHg). Assessment/Plan for indications treated with psychotropic medications: 1. Tardive dyskinesia: deutetrabenazine 6 mg PO daily. This is a stable chronic [facility]p medication, GDR not recommended. Monitor for efficacy including resident symptoms, behaviors and indications of distress. Monitor for abnormal movements. Monitor for tolerability including mental status, cognition, excessive sleepiness, withdrawal or decreased participation in activities and decline in physical functioning. Monitor for drowsiness, fatigue, diarrhea, dry mouth and UTI. Maximize use of nonpharmacologic/behavioral interventions to facilitate dose reduction or discontinuation as appropriate. Please evaluate the appropriateness of GDR unless contraindicated. If appropriate, GDR should be attempted in 2 separate quarters within the first year of use or admission to TCU. If GDR attempted, monitor resident symptoms/behaviors. 2. Anxiety/insomnia: lamotrigine 100 mg PO daily, trazodone 50 mg PO daily, clonazepam 1 mg PO QHS.. These are stable chronic long-term medications, GDR not recommended. Monitor for efficacy including resident symptoms, behaviors and indications of distress. Monitor for anxiety and panic attacks. Monitor for tolerability including mental status, cognition, excessive sleepiness, withdrawal or decreased participation in activities and decline in physical functioning. Monitor sodium levels (Na = 142 mmol/L on 04/21/25), and renal function (serum creatinine = 0.95 mg/dL with creatinine clearance ~ 52 mL/min on 04/21/25), and drowsiness/ataxia/confusion. Maximize use of nonpharmacologic/behavioral interventions to facilitate dose reduction or discontinuation as appropriate. Please evaluate the appropriateness of GDR unless contraindicated. If appropriate, GDR should be attempted in 2 separate quarters within the first year of use or admission to TCU. If GDR attempted, monitor resident symptoms/behaviors. Monitor for sedation, mental status and cognition. Monitor for falls (risk factor for falls) and implement fall prevention strategies. Monitor for respiratory depression. RR range since admission = 16-18 breaths/min. Monitor for drowsiness, dizziness or confusion, dry mouth, constipation, symptoms of serotonin syndrome (including agitation, confusion, hyperreflexia, rigidity/myoclonus, tremor, tachycardia, tachypnea), suicidal thoughts or behaviors (Boxed Warning). Monitor HR (can cause bradycardia or tachycardia). HR range since admission = 60-85 beats/min Monitor for orthostatic hypotension, including postural dizziness, syncope or falls. Check orthostatic vital signs if suspicion of orthostasis. QT on last ECG = 501 ms on 03/10/25 3. Major depression: escitalopram 5 mg PO daily. Please see provider note regarding stable chronic long-term use GDR not recommended. Monitor for efficacy including resident symptoms, behaviors and indications of distress. Monitor for depression and SI. Monitor for tolerability including mental status, cognition, excessive sleepiness, withdrawal or decreased participation in activities and decline in physical functioning. Maximize use of nonpharmacologic/behavioral interventions to facilitate dose reduction or discontinuation as appropriate. Please evaluate the appropriateness of GDR unless contraindicated. If appropriate, GDR should be attempted in 2 separate quarters within the first year of use or admission to TCU. If GDR attempted, monitor resident symptoms/behaviors.Monitor for diarrhea, nausea, headache, anxiety or drowsiness, suicidal thoughts or behaviors (Boxed Warning), symptoms of bleeding, symptoms of serotonin syndrome (including agitation, confusion, hyperreflexia, rigidity/myoclonus, tremor, tachycardia, tachypnea), sodium levels (last Na = 142 mmol/L on 04/21/25). Medical chart and medication regimen reviewed. The following medication irregularities or issues were identified: 1. Diabetes Mellitus II: metformin 500 mg PO daily. The patient's recent blood glucose readings have been elevated above her goal range, and the patient does not have a recent A1C to corroborate her readings. Please consider increasing metformin to 1000 mg PO daily and obtaining an A1C if clinically appropriate. 2. Hyperlipidemia: atorvastatin 40 mg PO QHS. Please consider ordering a lipid panel if clinically appropriate as the patient has not had one in > 1 year. Date Date of Note: 04/21/25 Documented by User: Dr. Alonso Marte MD 04/21/25 18:13 TCU RX Drug Regimen Review Provider Comments Provider responsibility Provider Comments to Recommendations by Pharmacy Agree 04/21/25 1212 <Electronically signed by Talat Cameron> Talat Cameron Cosignaudi Signature (if applicable): 04/21/25 1813 <Electronically signed by Alonso Marte MD> CC: ~ Signed [facility] Work Phone: 1(197) 266-938305-31-2025 Progress note [facility] Medical Records Department [address] [place] [id number] Progress Note - Pharmacy 04/21/25 1122 MR#: [id number] Acct: [id number] Name: MANSI CARO Rep #:[id number] : 1955 70 From: Talat Cameron PCP: Marci Lopez DO Status:ADM I N Location: [facility]- Documented by User: Talat Cameron 04/21/25 12:12 TCU RX Drug Regimen Review Subjective/Objective Subjective/Objective Subjective: TCU admission. 70 year old female with below past medical history hospitalized for weakness, no reversible cause of weakness found, admitted to TCU with debility, here for rehabilitation,strengthening, prior to discharge home with . Objective: Allergies No Known Allergies Allergy (Verified 04/19/25 03:35) Current Medications Generic Name Dose Route Start Last Admin Trade Name Freq PRN Reason Stop Dose Admin Acetaminophen 1,000 mg 04/20/25 16:54 Acetaminophen 500 Mg Tablet PO Q6H PRN PRN Pain Score 1-10 Albuterol Sulfate 1 puff 04/20/25 17:56 Albuterol Ih (6.7 Gm) 1 Puff Inhaler INHALATION Q6H PRN shortness of breath or wheezing Aspirin 81 mg 04/22/25 10:00 Aspirin 81 Mg Tab.Chew PO QODAY [facility] Atorvastatin Calcium 40 mg 04/20/25 22:00 04/20/25 21:32 Atorvastatin Calcium 40 Mg Tablet PO 40 mg QHS [facility] Administration Baclofen 5 mg 04/21/25 08:00 04/21/25 09:00 Baclofen 10 Mg Tablet PO 5 mg DAILYCM [facility] Administration Cholecalciferol 50 mcg 04/20/25 22:00 04/20/25 21:32 Cholecalciferol (Vit D3) 25 Mcg Tablet (1,000 Units) PO 50 mcg QHS [facility] Administration Clonazepam 1 mg 04/20/25 22:00 04/20/25 21:32 Clonazepam 1 Mg Tablet PO 1 mg QHS [facility] Administration Clopidogrel Bisulfate 75 mg 04/23/25 10:00 Clopidogrel Bisulfate 75 Mg Tablet PO MoWeFr [facility] Escitalopram Oxalate 5 mg 04/21/25 10:00 04/21/25 09:02 Escitalopram Oxalate 10 Mg Tablet PO 5 mg DAILY [facility] Administration Ferrous Sulfate 325 mg 04/21/25 12:00 Ferrous Sulfate 325 Mg Tablet PO DAILY@1200 [facility] Furosemide 20 mg 04/20/25 16:41 Furosemide 20 Mg Tablet PO DAILY PRN PRN for 2lb weight gain Protocol Glycerin/Hypromellose/Polyethylene 1 drp 04/20/25 18:04 Glycerin/Hypromellose/Oet301 15 Ml Bottle EACH EYE Q1H PRN PRN Dry eyes Hyoscyamine Sulfate 0.125 mg 04/20/25 18:01 Hyoscyamine Sulfate 0.125 Mg Tablet PO TID PRN dyspepsia Lamotrigine 100 mg 04/21/25 10:00 04/21/25 09:02 Lamotrigine 100 Mg Tablet PO 100 mg DAILY [facility] Administration Metformin HCl 500 mg 04/21/25 08:00 04/21/25 09:00 Metformin Hcl 500 Mg Tablet PO 500 mg DAILYCM [facility] Administration Metoprolol Succinate 25 mg 04/21/25 10:00 04/21/25 09:03 Metoprolol(Xl)Succ 25 Mg Tablet PO 25 mg DAILY [facility] Administration Protocol Non-Formulary Medication 145 mcg 04/21/25 10:00 Linaclotide [Linzess] PO QAM [facility] Oxycodone HCl 5 mg 04/20/25 18:07 Oxycodone 5 Mg Tablet PO Q6H PRN PRN Pain Score 6-10 Pantoprazole Sodium 40 mg 04/21/25 10:00 04/21/25 09:03 Pantoprazole Sodium 40 Mg Tablet PO 40 mg DAILY [facility] Administration Phenazopyridine HCl 95 mg 04/20/25 18:03 Phenazopyridine 95 Mg Tablet PO TID PRN PRN bladder pain Polyethylene Glycol 17 gm 04/21/25 10:00 04/21/25 09:02 Polyethylene Glycol 3350 17 Gm Packet PO 17 gm DAILY [facility] Administration Sodium Chloride 10 - 40 ml 04/20/25 16:48 04/20/25 21:33 0.9% Saline Lock 10 Ml Syringe IV 10 ml UD PRN Administration SALINE FLUSH Trazodone HCl 50 mg 04/20/25 22:00 04/20/25 23:07 Trazodone 50 Mg Tablet PO 50 mg QHS [facility] Administration Tuberculin PPD 0.1 ml 04/28/25 10:00 Tuberculin,Purif.Prot.Deriv. 50 Tu/Ml Vial ID 04/28/25 10:01 X1 ONE Problem List Diabetes mellitus (Acute) Irritable bowel syndrome (Acute) Calcium deficiency (Acute) CVA (cerebral vascular accident) (Acute) Ischemic colitis (Acute) Chronic systolic heart failure (Chronic) Insomnia (Acute) Overactive bladder (Acute) Muscle spasm (Acute) GERD (gastroesophageal reflux disease) (Acute) Vitamin D deficiency (Acute) Depression (Acute) Debility (Acute) HLD (hyperlipidemia) (Chronic) Vital Signs Temp Pulse Resp BP Pulse Ox O2 Del Method 99.9 F H 85 17 103/59 L 93 Room Air 04/21/25 08:47 04/21/25 09:03 04/21/25 08:47 04/21/25 08:47 04/21/25 08:15 04/21/25 08:47 Oxygen Delivery Method Room Air Weight: 61.262 kg Body Mass Index (BMI) 20.5 Sodium 142 mmol/L (133-145) 04/21/25 05:16 Potassium 4.3 mmol/L (3.3-5.1) 04/21/25 05:16 Chloride 107 mmol/L (98-108) 04/21/25 05:16 Carbon Dioxide 27.7 mmol/L (21.0-32.0) 04/21/25 05:16 Anion Gap 8 (5-15) 04/21/25 05:16 BUN 14 mg/dL (4-19) 04/21/25 05:16 Creatinine 0.95 mg/dL (0.70-1.20) 04/21/25 05:16 Est GFR (MDRD) Non-Af 64 (>60) 04/21/25 05:16 BUN/Creatinine Ratio 15.0 RATIO (10-20) 04/21/25 05:16 Glucose 185 mg/dL (70-99) H 04/21/25 05:16 Assessment/Plan: 1. Pain: acetaminophen 1000 mg Q6H PRN pain, oxycodone 5 mg PO Q6H PRN pain. The patient has not required any PRN doses of acetaminophen or oxycodone so far this admission. Please continue to monitorpain levels, for PRN medication usage, LFTs (AST/ALT = 19/21 U/L on 11/18/24), for constipation, respiratory depression, syncope/ataxia/falls, and dizziness/drowsiness. 2. Bowel: polyethylene glycol 17 grams PO daily, Linzess 145 mcg PO daily. Please continue to monitor for diarrhea, constipation, and bowel movements (last = BM on 04/21/25). 3. Chronic HFrEF: metoprolol succinate 25 mg PO daily, furosemide 20 mg PO daily PRN 2 lb weight gain. The patient has not required any PRN furosemide so far this admission. Please continue to monitor for s/s fo a heart failure exacerbation such as shortness of breath, leg swelling, JVD, renal function (serum creatinine = 0.95 mg/dL with creatinine clearance ~ 52 mL/min on 04/21/25), sodium levels(Na = 142 mmol/L on 04/21/25), potassium levels (K = 4.3 mmol/L on 04/21/25), calcium levels (Ca = 9.0 mg/dL on 04/21/25), heart rates (recent range = 60-85 beats/min), blood pressures (recent range = 94-193/40-91 mmHg), and for fatigue. 4. Dysuria: phenazopyridine 95 mg PO TID PRN bladder pain. The patient has not required any PRN doses of phenazopyridine so far this admission. Please continue to monitor for dysuria, and PRN medication usage. 5. GERD: pantoprazole 40 mg PO daily, hyoscyamine 0.125 mg PO TID PRN dyspepsia. The patient has not required any PRN doses of hyoscyamine so far this admission. Please continue to monitor heart rates (recent range = 60-85 beats/min), for flushing and palpitations, dizziness/drowsiness, for diarrhea that could indicate clostridium difficile infection, for s/s of GERD, and for s/s of bone resorption such as fractures. 6. Diabetes Mellitus II: metformin 500 mg PO daily. Please continue to monitor BG levels (recent range = 153-260 mg/dL), hemoglobin A1C levels (A1C = 7.0% on 02/22/24), renal function (serum creatinine= 0.95 mg/dL with creatinine clearance ~ 52 mL/min with eGFR = ~64 mL/min on 04/21/25), vitamin B12 levels (B12 = 1211 pg/mL on 07/17/24), as well as for GI distress with metformin administration. The patient's recent blood glucose readings have been elevated above her goal range, and the patient does not have a recent A1C to corroborate her readings. Please consider increasing metformin to 1000 mgPO daily and obtaining an A1C if clinically appropriate. 7. Hyperlipidemia: atorvastatin 40 mg PO QHS. Please continue to monitor lipid levels (cholesterol = 106 mg/dL with LDL = 36 mg/dL on 09/29/25), LFTs (AST/ALT = 19/21 U/L on 11/18/24), and for myalgias. Please consider ordering a lipid panel if clinically appropriate as the patient has not had one in > 1 year. 8. Stroke: aspirin 81 mg PO every other day, clopidogrel 75 mg PO daily. Please continue to monitorfor s/s of stroke, for s/s of bleeding/excessive bruising, hemoglobin levels (Hgb = 9.7 g/dL on 04/21/25), platelet counts (Plt = 168 K/mm3 on 04/21/25), as well as for GI distress with aspirin administration. 9. Iron deficiency anemia: ferrous sulfate 325 mg PO daily. Please continue to monitor hemoglobin levels (Hgb = 9.7 g/dL on 04/21/25), iron levels (iron = 74 ug/dL on 01/22/25), as well as for GI distress with iron administration. 10. Vitamin D deficiency: cholecalciferol 50 mcg PO daily. Please continue to monitor vitamin D levels (vitamin D = 54.2 ng/mL on 03/02/24), and for s/s of vitamin D deficiency. 11. Dry eyes: artificial tears 1 drop in each eye every hour PRN dry eyes. The patient has not required any PRN doses of artificial tears so far this admission. Please continue to monitor for dry eyes and PRN medication administration. 12. Shortness of breath: albuterol 1 puff every 6 hours as needed for shortness of breath/wheezing.The patient has not required any PRN doses of albuterol so far this admission. Please continue to monitor for shortness of breath/wheezing and for PRN medication usage. 13. Muscle spasms: baclofen 5 mg PO daily. Please continue to monitor for muscle spasms, for confusion/dizziness/drowsiness/asthenia, nausea/vomiting, and blood pressures (recent range = 94-193/40-91mmHg). Assessment/Plan for indications treated with psychotropic medications: 1. Tardive dyskinesia: deutetrabenazine 6 mg PO daily. This is a stable chronic termite helper medication, GDR not recommended. Monitor for efficacy including resident symptoms, behaviors and indications of distress. Monitor for abnormal movements. Monitor for tolerability including mental status, cognition, excessive sleepiness, withdrawal or decreased participation in activities and decline in physical functioning. Monitor for drowsiness, fatigue, diarrhea, dry mouth and UTI. Maximize use of nonpharmacologic/behavioral interventions to facilitate dose reduction or discontinuation as appropriate. Please evaluate the appropriateness of GDR unless contraindicated. If appropriate, GDR should be attempted in 2 separate quarters within the first year of use or admission to TCU. If GDR attempted, monitor resident symptoms/behaviors. 2. Anxiety/insomnia: lamotrigine 100 mg PO daily, trazodone 50 mg PO daily, clonazepam 1 mg PO QHS.. These are stable chronic long-term medications, GDR not recommended. Monitor for efficacy including resident symptoms, behaviors and indications of distress. Monitor for anxiety and panic attacks. Monitor for tolerability including mental status, cognition, excessive sleepiness, withdrawal or decreased participation in activities and decline in physical functioning. Monitor sodium levels (Na =142 mmol/L on 04/21/25), and renal function (serum creatinine = 0.95 mg/dL with creatinine clearance~ 52 mL/min on 04/21/25), and drowsiness/ataxia/confusion. Maximize use of nonpharmacologic/behavioral interventions to facilitate dose reduction or discontinuation as appropriate. Please evaluate the appropriateness of GDR unless contraindicated. If appropriate, GDR should be attempted in 2 separate quarters within the first year of use or admission to TCU. If GDR attempted, monitor resident symptoms/behaviors. Monitor for sedation, mental status and cognition. Monitor for falls (risk factor for falls) and implement fall prevention strategies. Monitor for respiratory depression. RR range since admission = 16-18 breaths/min. Monitor for drowsiness, dizziness or confusion, dry mouth, constipation, symptoms of serotonin syndrome (including agitation, confusion, hyperreflexia, rigidity/myoclonus, tremor, tachycardia, tachypnea), suicidal thoughts or behaviors (Boxed Warning). Monitor HR (can cause bradycardia or tachycardia). HR range since admission = 60-85 beats/min Monitor for orthostatic hypotension, including postural dizziness, syncope or falls. Check orthostatic vital signs if suspicion of orthostasis. QT on last ECG = 501 ms on 03/10/25 3. Major depression: escitalopram 5 mg PO daily. Please see provider note regarding stable chronic long-term use GDR not recommended. Monitor for efficacy including resident symptoms, behaviors and indications of distress. Monitor for depression and SI. Monitor for tolerability including mental status, cognition, excessive sleepiness, withdrawal or decreased participation in activities and decline in physical functioning. Maximize use of nonpharmacologic/behavioral interventions to facilitate dose reduction or discontinuation as appropriate. Please evaluate the appropriateness of GDR unless contraindicated. If appropriate, GDR should be attempted in 2 separate quarters within the first year of use or admission to TCU. If GDR attempted, monitor resident symptoms/behaviors.Monitor for diarrhea, nausea, headache, anxiety or drowsiness, suicidal thoughts or behaviors (Boxed Warning), symptoms of bleeding, symptoms of serotonin syndrome (including agitation, confusion, hyperreflexia, rigidity/myoclonus, tremor, tachycardia, tachypnea), sodium levels (last Na = 142 mmol/L on 04/21/25). Medical chart and medication regimen reviewed. The following medication irregularities or issues were identified: 1. Diabetes Mellitus II: metformin 500 mg PO daily. The patient's recent blood glucose readings have been elevated above her goal range, and the patient does not have a recent A1C to corroborate her readings. Please consider increasing metformin to 1000 mg PO daily and obtaining an A1C if clinically appropriate. 2. Hyperlipidemia: atorvastatin 40 mg PO QHS. Please consider ordering a lipid panel if clinically appropriate as the patient has not had one in > 1 year. Date Date of Note: 04/21/25 Documented by User: Dr. Alonso Marte MD 04/21/25 18:13 TCU RX Drug Regimen Review Provider Comments Provider responsibility Provider Comments to Recommendations by Pharmacy Agree 04/21/25 1212 Talat Ortizignaudi Signature (if applicable): 04/21/25 1813 CC: ~ Signed [facility]05-30-2025 History and physical note Author [facility] Note Date/Time April 20, 2025 4:53p [facility] Medical Records Department [address] [place] [address] History & Physical Exam 04/20/25 1624 MR#: [id number] Acct: [id number] Name: MANSI CARO Rep #:[id number] : 1955 70 From: Alonso Marte MD PCP: Marci Lopez DO Status:ADM I N Location: [facility] TCU22-1 HPI - General General Date of Admission: 04/20/25 Date of Service: 04/20/25 Chief Complaint: Here for rehabilitation. HPI Narrative MANSI CARO, is a 70 Female who presents with followin04/19/2025 [facility] ED weakness. Walks with walker at baseline. Not eating, not drinking for weeks. Too weak to get OOB. Patient concerned with urinary tract infection. Bloodwork okay, urinalysis okay. Normal saline 1 liter IV fluid bolus given. unable to care for her at home. PT/OT for placement. 04/19/2025 Admit [facility]. PT/OT/CM for SNF placement. No reversible etiology for weakness found. 04/20/2025 Resident vomited twice, vomitus appeared to be food, antiemetics givenwhich made her loopy. 04/20/2025 Admit to TCU with debility, here for rehabilitation, strengthening, prior to discharge home with . 04/25/2025 Dr. Lockett planning EGD/colonoscopy for anemia, +hemoccult, ischemic colitis. Dr. Garcia planning cystoscopy in office, date unknown. [facility] Medical History (Updated 04/20/25 @ 16:[address] Alonso Marte MD) CVA (cerebral vascular accident) Ischemic colitis History of left heart catheterization [...] (implantable cardioverter-defibrillator) in place Coronary artery disease PFO (patent foramen ovale) Cardiac resynchronization therapy defibrillator ([employer]-D) in place Myocarditis Hyperlipidemia Hypertension Home Medications ?Medication ?Instructions ?Recorded ?Last Taken ?Type clonazepam 1 mg tablet 1 mg PO QHS anxiety 11/18/14 07/02/24 History trazodone 50 mg tablet 50 mg PO DAILY Anxiety 11/1804/19/25 20:30 History cholecalciferol (vitamin D3) 25 50 mcg (2 x 25 mcg (1, 000 unit)) 09/30/23 04/19/25 20:30 Rx mcg (1,000 unit) tablet PO QHS supplement #0 tabs aspirin 81 mg tablet,delayed 81 mg PO .COMPLEX heart 1 12/01/22 04/20/25 08:50 History release rosuvastatin 20 mg tablet 20 mg PO QHS cholesterol 12/1504/19/25 20:30 History acetaminophen 500 mg tablet 500 mg PO Q6H PRN PRN Pain Score 06/13/24 07/01/24 History 1-10 docusate sodium 100 mg capsule 100 mg PO DAILY PRN con stipation 06/13/24 07/02/24 History furosemide 20 mg tablet 20 mg PO QDAY PRN for 2lb we ight 06/13/24 06/19/24 History gain pantoprazole 40 mg tablet,delayed 40 mg PO DAILY GERD 07/17/24 04/20/25 08:50 History release baclofen 5 mg tablet 5 mg PO QDAY muscle spasms 0 08/03/24 Unknown History albuterol sulfate 90 mcg/actuation 1 puff inhalation Q 6H PRN 09/09/24 Unknown Rx aerosol inhaler shortness of breath or wheez ing #8.5 grams escitalopram oxalate 5 mg tablet 5 mg PO QDAY Mood 06/1504/20/25 08:50 History polyethylene glycol 3350 17 17 g PO DAILY Constipation 11/28/24 Unknown History gram/dose oral powder (Miralax) metformin 500 mg tablet 500 mg PO QDAY Diabetes 12/24 06/15 Unknown History metoprolol succinate 25 mg 25 mg PO QDAY BP 01/18/25 0 04/20/25 10:35 History tablet,extended release 24 hr (Toprol XL) lamotrigine 100 mg tablet 100 mg PO QDAY Anxiety 01/2304/20/25 08:50 History polyethylene glycol 400 0.25 % eye 1 drp ophthalmic (e ye) .q1hr PRN 01/23/25 Unknown History gel drops (Blink Gel Tears) Dry eyes ferrous sulfate 325 mg (65 mg 325 mg PO QDAY Supplemen t 02/13/25 04/20/25 08:30 History iron) tablet (Feosol) linaclotide 145 mcg capsule 145 mcg PO QAM Constipatio n #60 02/14/25 Unknown Rx (Linzess) caps hyoscyamine sulfate 0.125 mg tablet 0.125 mg PO TID NE N dyspepsia #90 03/05/25 Unknown Rx tabs clopidogrel 75 mg tablet 75 mg PO .COMPLEX Antiplatel et 04/19/25 04/20/25 13:05 History deutetrabenazine 6 mg 6 mg PO DAILY involuntary Mo vements 04/19/25 04/20/25 08:50 History tablet,extended release 24 hr (Austedo XR) [...] Yes additional social history: - Song ROS Constitutional Constitutional: Reports weakness; Denies chills, fever(s) or weight gain ENT [...] noted General Skin Exam: no breakdown Neuro moves all extremities Psych affect normal Appearance: appropriate Assessment & Plan Assessment/Plan (1) Debility: (2) CVA (cerebral vascular accident): (3) HLD (hyperlipidemia): (4) Muscle spasm: (5) Ischemic colitis: (6) Calcium deficiency: (7) Vitamin D deficiency: (8) Insomnia: (9) Chronic systolic heart failure: (10) Irritable bowel syndrome: (11) Depression: (12) Diabetes mellitus: (13) GERD (gastroesophageal reflux disease): (14) Overactive bladder: PLAN: Plan 70 year old female with below past medical history hospitalized for weakness, noreversible cause of weakness found, admitted to TCU with debility, here for rehabilitation, strengthening, prior ot discharge home with . * Debility - PT/OT. * Pain - Tylenol 1000mg q6 prn pain (1-10). * Bowel - Miralax 17gm daily, Linzess 145mcg daily. * Adult immunization - Administer pneumonia vaccine, covid vaccine, flu vaccine as appropriate. * DVT prophylaxis - Hold, on dual antiplatelet therapy. * Chronic HFrEF - Metoprolol succinate 25mg daily, Furosemide 20mg daily prn 2lb weight gain. * GERD - Pantoprazole 40mg daily, Levsin 0.125mg tid prn. * Diabetes Mellitus II - Metformin 500mg daily. * Dry Eyes - Artificial tears 1 gtt ou q1 prn. * Anxiety - Lamictal 100mg daily. * Iron deficiency anemia - Ferrous sulfate 325mg daily, Dr. Lockett planning EGD/colonoscopy 04/25/2025. * Vitamin D deficiency - D3 25mcg daily. * Stroke - Aspirin 81mg daily, Plavix 75mg daily. * Hyperlipidemia - Rosuvastatin 20mg qhs. * Muscle spasm - Baclofen 5mg daily. * Shortness of breath - Albuterol mdi prn. * Tardive dyskinesia - Austedo XR 6mg daily. * Dysuria - Pyridium 100mg tid prn, Dr. Garcia planning office cystoscopy. The following psychotropic medication was present on admission: Escitalopram 5mgdaily. Psychotropic medication therapy is indicated for a diagnosis of: Major Depression. Based on my clinical evaluation, continuation of the medication is necessary at this time. Gradual dose reduction plan (select one): ____ GDR will be attempted. Will monitor patient symptoms and behaviors in response to GDR. ___x_ GRD contraindicated. 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 The following psychotropic medication was present on admission: Trazodone 50mg qhs. Psychotropic medication therapy is indicated for a diagnosis of: Insomnia. Based on my clinical evaluation, continuation of the medication is necessary at this time. Gradual dose reduction plan (select one): ____ GDR will be attempted. Will monitor patient symptoms and behaviors in response to GDR. __x__ GRD contraindicated. Reason contraindicated: stable chronic mcfp use. The following psychotropic medication was present on admission: Clonazepam 1mg qhs. Psychotropic medication therapy is indicated for a diagnosis of: Anxiety/insomnia. Based on my clinical evaluation, continuation of the medication is necessary at this time. Gradual dose reduction plan (select one): ____ GDR will be attempted. Will monitor patient symptoms and behaviors in response to GDR. __x__ GRD contraindicated. 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 04/20/25 1653 <Electronically signed by Alonso Marte MD> Cosigner Signature (if applicable): CC: Dr. Alonso Marte MD; Marci Lopez DO~ Signed [facility] Work Phone: [phone]) 986-263105-30-2025 History and physical note [facility] Medical Records Department [address] [place] [address] History & Physical Exam 04/20/25 1624 MR#: [id number] Acct: [id number] Name: MANSI CARO Rep #:[id number] : 1955 70 From: Alonso Marte MD PCP: Marci Lopez DO Status:ADM I N Location: [place] [address] HPI - General General Date of Admission: 04/20/25 Date of Service: 04/20/25 Chief Complaint: Here for rehabilitation. HPI Narrative MANSI CARO, is a 70 Female who presents with followin04/19/2025 [facility] ED weakness. Walks with walker at baseline. Not eating, not drinking for weeks. Too weak to get OOB. Patient concerned with urinary tract infection. Bloodwork okay, urinalysis okay. Normal saline 1 liter IV fluid bolus given. unable to care for her at home. PT/OT for placement. 04/19/2025 Admit [facility]. PT/OT/CM for SNF placement. No reversible etiology for weakness found. 04/20/2025 Resident vomited twice, vomitus appeared to be food, antiemetics givenwhich made her loopy. 04/20/2025 Admit to TCU with debility, here for rehabilitation, strengthening, prior to discharge home with . 04/25/2025 Dr. Lockett planning EGD/colonoscopy for anemia, +hemoccult, ischemic colitis. Dr. Garcia planning cystoscopy in office, date unknown. [facility] Medical History (Updated 04/20/25 @ 16:[address] Alonso Marte MD) CVA (cerebral vascular accident) Ischemic colitis History of left heart catheterization [...] (implantable cardioverter-defibrillator) in place Coronary artery disease PFO (patent foramen ovale) Cardiac resynchronization therapy defibrillator ([employer]-D) in place Myocarditis Hyperlipidemia Hypertension Home Medications ?Medication ?Instructions ?Recorded ?Last Taken ?Type clonazepam 1 mg tablet 1 mg PO QHS anxiety 11/18/14 07/02/24 History trazodone 50 mg tablet 50 mg PO DAILY Anxiety 11/1804/19/25 20:30 History cholecalciferol (vitamin D3) 25 50 mcg (2 x 25 mcg (1, 000 unit)) 09/30/23 04/19/25 20:30 Rx mcg (1,000 unit) tablet PO QHS supplement #0 tabs aspirin 81 mg tablet,delayed 81 mg PO .COMPLEX heart 1 12/01/22 04/20/25 08:50 History release rosuvastatin 20 mg tablet 20 mg PO QHS cholesterol 12/1504/19/25 20:30 History acetaminophen 500 mg tablet 500 mg PO Q6H PRN PRN Pain Score 06/13/24 07/01/24 History 1-10 docusate sodium 100 mg capsule 100 mg PO DAILY PRN con stipation 06/13/24 07/02/24 History furosemide 20 mg tablet 20 mg PO QDAY PRN for 2lb we ight 06/13/24 06/19/24 History gain pantoprazole 40 mg tablet,delayed 40 mg PO DAILY GERD 07/17/24 04/20/25 08:50 History release baclofen 5 mg tablet 5 mg PO QDAY muscle spasms 0 08/03/24 Unknown History albuterol sulfate 90 mcg/actuation 1 puff inhalation Q 6H PRN 09/09/24 Unknown Rx aerosol inhaler shortness of breath or wheez ing #8.5 grams escitalopram oxalate 5 mg tablet 5 mg PO QDAY Mood 06/1504/20/25 08:50 History polyethylene glycol 3350 17 17 g PO DAILY Constipation 11/28/24 Unknown History gram/dose oral powder (Miralax) metformin 500 mg tablet 500 mg PO QDAY Diabetes 12/24 06/15 Unknown History metoprolol succinate 25 mg 25 mg PO QDAY BP 01/18/25 0 04/20/25 10:35 History tablet,extended release 24 hr (Toprol XL) lamotrigine 100 mg tablet 100 mg PO QDAY Anxiety 01/2304/20/25 08:50 History polyethylene glycol 400 0.25 % eye 1 drp ophthalmic (e ye) .q1hr PRN 01/23/25 Unknown History gel drops (Blink Gel Tears) Dry eyes ferrous sulfate 325 mg (65 mg 325 mg PO QDAY Supplemen t 02/13/25 04/20/25 08:30 History iron) tablet (Feosol) linaclotide 145 mcg capsule 145 mcg PO QAM Constipatio n #60 02/14/25 Unknown Rx (Linzess) caps hyoscyamine sulfate 0.125 mg tablet 0.125 mg PO TID NE N dyspepsia #90 04/14/25 Unknown Rx tabs clopidogrel 75 mg tablet 75 mg PO .COMPLEX Antiplatel et 04/19/25 04/20/25 13:05 History deutetrabenazine 6 mg 6 mg PO DAILY involuntary Mo vements 04/19/25 04/20/25 08:50 History tablet,extended release 24 hr (Austedo XR) [...] Yes additional social history: - Song ROS Constitutional Constitutional: Reports weakness; Denies chills, fever(s) or weight gain ENT [...] noted General Skin Exam: no breakdown Neuro moves all extremities Psych affect normal Appearance: appropriate Assessment & Plan Assessment/Plan (1) Debility: (2) CVA (cerebral vascular accident): (3) HLD (hyperlipidemia): (4) Muscle spasm: (5) Ischemic colitis: (6) Calcium deficiency: (7) Vitamin D deficiency: (8) Insomnia: (9) Chronic systolic heart failure: (10) Irritable bowel syndrome: (11) Depression: (12) Diabetes mellitus: (13) GERD (gastroesophageal reflux disease): (14) Overactive bladder: PLAN: Plan 70 year old female with below past medical history hospitalized for weakness, noreversible cause ofweakness found, admitted to TCU with debility, here for rehabilitation, strengthening, prior ot discharge home with . * Debility - PT/OT. * Pain - Tylenol 1000mg q6 prn pain (1-10). * Bowel - Miralax 17gm daily, Linzess 145mcg daily. * Adult immunization - Administer pneumonia vaccine, covid vaccine, flu vaccine as appropriate. * DVT prophylaxis - Hold, on dual antiplatelet therapy. * Chronic HFrEF - Metoprolol succinate 25mg daily, Furosemide 20mg daily prn 2lb weight gain. * GERD - Pantoprazole 40mg daily, Levsin 0.125mg tid prn. * Diabetes Mellitus II - Metformin 500mg daily. * Dry Eyes - Artificial tears 1 gtt ou q1 prn. * Anxiety - Lamictal 100mg daily. * Iron deficiency anemia - Ferrous sulfate 325mg daily, Dr. Lockett planning EGD/colonoscopy 04/25/2025. * Vitamin D deficiency - D3 25mcg daily. * Stroke - Aspirin 81mg daily, Plavix 75mg daily. * Hyperlipidemia - Rosuvastatin 20mg qhs. * Muscle spasm - Baclofen 5mg daily. * Shortness of breath - Albuterol mdi prn. * Tardive dyskinesia - Austedo XR 6mg daily. * Dysuria - Pyridium 100mg tid prn, Dr. Garcia planning office cystoscopy. The following psychotropic medication was present on admission: Escitalopram 5mgdaily. Psychotropic medication therapy is indicated for a diagnosis of: Major Depression. Based on my clinical evaluation, continuation of the medication is necessary at this time. Gradual dose reduction plan (select one): ____ GDR will be attempted. Will monitor patient symptoms and behaviors in response to GDR. ___x_ GRD contraindicated. Reason contraindicated: stable chronic mcfp use. The following psychotropic medication was present on admission: Trazodone 50mg qhs. Psychotropic medication therapy is indicated for a diagnosis of: Insomnia. Based on my clinical evaluation, continuation of the medication is necessary at this time. Gradual dose reduction plan (select one): ____ GDR will be attempted. Will monitor patient symptoms and behaviors in response to GDR. __x__ GRD contraindicated. Reason contraindicated: stable chronic mcfp use. The following psychotropic medication was present on admission: Clonazepam 1mg qhs. Psychotropic medication therapy is indicated for a diagnosis of: Anxiety/insomnia. Based on my clinical evaluation, continuation of the medication is necessary at this time. Gradual dose reduction plan (select one): ____ GDR will be attempted. Will monitor patient symptoms and behaviors in response to GDR. __x__ GRD contraindicated. Reason contraindicated: stable chronic mcfp use. 04/20/25 2495 Cosign Signature (if applicable): CC: Dr. Alonso Marte MD; Marci Lopez DO~ Signed [facility]05[facility]30[facility] Medical Records Department [address] [place] [address] Discharge Summary 04/20/25 1449 MR#: [id number] Acct: [id number] Name: MANSI CARO Rep #:[id number] : 1955 70 From: Maximo levin DO PCP: John,Marci L. DO Status:ADM I NO Location: MS3 [id number] Providers Date of Admission: 04/19/25 Date of [...] puff inhalation Q6H PRN shortness of breath orwheezing #8.5 grams 09/09/24 escitalopram oxalate 5 mg [...] is a 70-year-old female who presented to [facility] ED on 04/19/2025 with worsening weakness. Short [...] worsening weakness in setting of deconditioning. Had b orderline therapy scores while here. Stable for discharge [...] Creatinine 0.88, Estim Creat Clear Calc 56.56, EstGFR (MDRD) Non- Af70, BUN/Creatinine Ratio 13.4, Glucose 188 H, Calcium 8.7 05/30/25 06:38: POC Glucose 197 H 04/20/25 11:31: [...] in before D/C Order can be placed): Penitentiary Facility Charges/Coding Visit Charges Inpatient E&M: 43904 Disch Hosp >30min 04/20/25 1885 Cosigner Signature (if applicable): CC: Dr. Maximo Orosco DO; Marci Lopez DO~ Signed [facility]05-30-2025 Discharge summary [facility] Medical Records Department [address] [place] [address] Transfer to [facility] MR#: [id number] Acct: [id number] Name: MANSI CARO Rep #:[id number] : 1955 70 From: Maximo levin DO PCP: Marci Lopez DO Status:ADM I NO Certification of patient admission REQUIRED AT TIME OF ADMISSION. I CERTIFY THAT POST-HOSPITAL ECF SERVICES ARE REQUIRED TO BE GIVEN ON AN IN-PATIENT BASIS BECAUSE OF THE ABOVE NAMED PATIENT'S NEED FOR CORRECTION CARE ON A CONTINUING BASIS FOR THE CONDITION(S) FOR WHICH HE/SHE WAS RECEIVING IN-PATIENT HOSPITAL SERVICES PRIOR TO HIS/HER TRANSFER TO [facility]. 04/20/25 1454 Diet Diet Order/Speech Therapy: INPATIENT Hospital Diet [...] is a 70-year-old female who presented to [facility] ED on 04/19/2025 with worsening weakness. Short [...] worsening weakness in setting of deconditioning. Had b orderline therapy scores while here. Stable for discharge [...] in before D/C Order can be placed): Penitentiary Facility 04/20/25 1454 Cosigner Signature (if applicable): CC: Marci Lopez DO ~ [facility]05-30-2025 [facility]05-29-2025 History and physical note Author Maximo Orosco [facility] Note Date/Time April 19, 2025 2:36p m [facility] Medical Records Department [address] [place] [address] H&P Exam - Hospitalist 04/19/25 1124 MR#: [id number] Acct: [id number] Name: MANSI CAOR Rep #:[id number] : 1955 70 From: Maximo levin DO PCP: Marci Lopez DO Status:ADM I NO Location: [facility] [id number] HPI - General General Date of Admission: 04/19/25 Date of Service: 04/19/25 Chief Complaint: Worsening weakness HPI Narrative MANSI CARO, is a 70 F who presented to [facility] ED on 04/19/2025 with worsening weakness. Patient [...] this morning. No other concerns at thistime. [facility] Medical History Ischemic colitis History of left [...] (patent foramen ovale) Cardiac resynchronization therapy defibrillator (SUPERVISOR INTERNATIONAL RESERVATIONS-D) in place Myocarditis Hyperlipidemia Hypertension Home Medications [...] 0.125 mg tablet 0.125 mg PO TID NE N dyspepsia #90 03/05/25 Unknown Rx tabs [...] (Auto) 78.3 H, Lymph % (Auto) 10.4 L,Upton % (Auto) 8.2, Eos % (Auto) 2.5, [...] Clarity Clear, Urine pH 6.5, Ur Specific [place] 1.010, Urine Protein 15 H, Urine Glucose [...] is a 70-year-old female who presented to [facility] ED on 04/19/2025 with worsening weakness. 1. Acute on chronic debility ? [facility] PT/OT/case management consulted. Patient with chronic debility [...] 55 minutes. Charges/Coding Visit Charges Inpatient E&M: 33916 Init Hosp L2 04/19/25 1436 <Electronically signed by Maximo Orosco DO> Cosigner Signature (if applicable): CC: Dr. Maximo Orosco DO; Marci Lopez DO~ Signed [facility] Work Phone: 1(953) 667-883805-29-2025 History and physical note [facility] Medical Records Department [address] [place] [address] H&P Exam - Hospitalist 04/19/25 1124 MR#: [id number] Acct: [id number] Name: MANSI CARO Rep #:[id number] : 1955 70 From: Maximo levin DO PCP: Marci Lopez DO Status:ADM I NO Location: [facility] [id number] HPI - General General Date of Admission: 04/19/25 Date of Service: 04/19/25 Chief Complaint: Worsening weakness HPI Narrative MANSI CARO, is a 70 F who presented to [facility] ED on 04/19/2025 with worseningweakness. Patient typically [...] this morning. No other concerns at thistime. [facility] Medical History Ischemic colitis History of left [...] (patent foramen ovale) Cardiac resynchronization therapy defibrillator (SUPERVISOR INTERNATIONAL RESERVATIONS-D) in place Myocarditis Hyperlipidemia Hypertension Home Medications [...] 0.125 mg tablet 0.125 mg PO TID NE N dyspepsia #90 03/05/25 Unknown Rx tabs [...] (Auto) 78.3 H, Lymph % (Auto) 10.4 L,Upton % (Auto) 8.2, Eos % (Auto) 2.5, [...] Clarity Clear, Urine pH 6.5, Ur Specific [place] 1.010, Urine Protein 15 H, Urine Glucose [...] is a 70-year-old female who presented to [facility] ED on 04/19/2025 with worsening weakness. 1. Acute on chronic debility ? [facility] PT/OT/case management consulted. Patient with chronic debility [...] 55 minutes. Charges/Coding Visit Charges Inpatient E&M: 33085 Init Hosp L2 04/19/25 5746 Cosigner Signature (if applicable): CC: Dr. Maximo Orosco DO; Marci Lopez DO~ Signed [facility]05-29-2025 Discharge summary Author Romeo Padron [facility] Note Date/Time April 19, 2025 11:06 am [facility] Medical Records Department [address] [place] [address] Emergency Department Summary 04/19/25 MR#: [id number] Acct: [id number] Name: MANSI CARO Rep #:[id number] : 1955 70 From: Romeo Padron DO PCP: Marci Lopez DO Status:REG E R Location: ED ADDENDUM by Dr. Bosmsan Sanders DO on 04/19/25 at 1106 Patient [facility] over to [facility] awaiting evaluation by social work coordinator for placement to alf facility. Patient was evaluated by social work coordinator and it was recommended that patient be admitted for precertification and admission to alf facility. Will discuss case with hospitalist to [...] infection she was brought in for evaluation [facility] Medical History Ischemic colitis History of left [...] (patent foramen ovale) Cardiac resynchronization therapy defibrillator (SUPERVISOR INTERNATIONAL RESERVATIONS-D) in place Myocarditis Hyperlipidemia Hypertension Home Medications [...] 0.125 mg tablet 0.125 mg PO TID NE N dyspepsia #90 03/05/25 Unknown Rx tabs [...] to go home and is agreeable to usp/rehab placement. As it is a weekday and morning hours the patient will be evaluated by physical therapy/Occupational Therapy in the ER and social work will be consulted as well. There is hopes that the patient will be able to be sent directly from the ER to a usp/rehab center. The patient and family were informed [...] 78.3 H Lymph % (Auto) 10.4 L Upton % (Auto) 8.2 Eos % (Auto) 2.5 [...] Clarity Clear Urine pH 6.5 Ur Specific [place] 1.010 Urine Protein 15 H Urine Glucose (UA) 100 H Urine Ketones Negative Urine Occult Blood Negative Urine Nitrite Negative Urine Bilirubin Negative Urine Urobilinogen Normal Ur Leukocyte Esterase Negative Urine RBC 0 SEEN Urine WBC 0 SEEN Ur Squamous Epith Cells 0 SEEN Urine Bacteria 0 SEEN Urine Mucus 0 SEEN Management Discussion w/another healthcare provider: Hospitalist and child day care center worker/Case management Discharge Plan Triage Chief Complaint: [...] Lopez, [Primary Care Provider] - Print Language: Bangladeshi What to do if you have Problems For any increased pain, shortness of breath, bleeding, nausea or vomiting, chestpain, or any unexpected problems, contact your Primary Care Provider. Call [facility] ([phone]) or report to the closest Emergency Room. Call 911 if necessary. 04/19/25 0633 <Electronically signed by Romeo Padron DO> Cosigner Signature (if applicable): CC: Marci Lopez DO ~ Signed [facility] Work Phone: [phone] 254-291805-29-2025 Discharge summary [facility] Medical Records Department [address] [place] [address] Emergency Department Summary 04/19/25 MR#: [id number] Acct: [id number] Name: MANSI CARO Rep #:[id number] : 1955 70 From: Romeo Padron DO PCP: Marci Lopez DO Status:REG E R Location: ED ADDENDUM by Dr. Bossman Sanders DO on 04/19/25 at 1106 [facility] awaiting evaluation by social work coordinator for placement to alf facility. Patient was evaluated by social work coordinator and it was recommended that patient be admitted for precertification and admission to alf facility. Will discuss case with hospitalist to [...] infection she was brought in for evaluation [facility] Medical History Ischemic colitis History of left [...] (patent foramen ovale) Cardiac resynchronization therapy defibrillator (SUPERVISOR INTERNATIONAL RESERVATIONS-D) in place Myocarditis Hyperlipidemia Hypertension Home Medications [...] 0.125 mg tablet 0.125 mg PO TID NE N dyspepsia #90 03/05/25 Unknown Rx tabs [...] to go home and is agreeable to usp/rehab placement. As it is a weekday and morning hours the patient will be evaluated by physical therapy/Occupational Therapy in the ER and social work will be consulted as well. There is hopes that the patient will be able to be sent directly from the ER to a usp/rehab center. The patient and family were informed [...] 78.3 H Lymph % (Auto) 10.4 L Upton % (Auto) 8.2 Eos % (Auto) 2.5 [...] Clarity Clear Urine pH 6.5 Ur Specific [place] 1.010 Urine Protein 15 H Urine Glucose (UA) 100 H Urine Ketones Negative Urine Occult Blood Negative Urine Nitrite Negative Urine Bilirubin Negative Urine Urobilinogen Normal Ur Leukocyte Esterase Negative Urine RBC 0 SEEN Urine WBC 0 SEEN Ur Squamous Epith Cells 0 SEEN Urine Bacteria 0 SEEN Urine Mucus 0 SEEN Management Discussion w/another healthcare provider: Hospitalist and child day care center worker/Case management Discharge Plan Triage Chief Complaint: [...] DO [Primary Care Provider] - Print Language: Bangladeshi What to do if you have Problems For any increased pain, shortness of breath, bleeding, nausea or vomiting, chestpain, or any unexpected problems, contact your Primary Care Provider. Call [facility] ([phone]) or report tothe closest Emergency Room. Call 911 if necessary. 04/19/25 0633 Cosigner Signature (if applicable): CC: Marci Lopez DO ~ Signed [facility]05-14-2025 History of Present illness Narrative* Rubina Valdovinos [...] that CIED system is MR conditional: Yes, [employer] Remote programming PATIENT PRESENTS WITH AN IMPLANTABLE OR ATTACHED CIVIL ENGINEER: No RADIOLOGY DEPARTMENT: MR; Exam(s) Completed: Head: Routine Brain. Lavender Administered: No PERIPHERAL IV DATA: Not applicable SIGNED BY: DIONNA Shipman April 04, 2025 12:27 PM documented in this encounterBarberton [facility]05-14-2025 NoteHNO ID: [id number] Author: RUBINA VALDOVINOS CT Service: Radiology Author Type: Technologist Type: Progress Notes Filed: 04/04/2025 12:28 Note Text: Radiology Service Progress Note PATIENT NAME: aMnsi Caro DATE OF SERVICE: April 04, 2025 [...] that CIED system is MR conditional: Yes, [employer] Remote programming PATIENT PRESENTS WITH AN IMPLANTABLE OR ATTACHED CIVIL ENGINEER: No RADIOLOGY DEPARTMENT: MR; Exam(s) Completed: Head: Routine Brain. Lavender Administered: No PERIPHERAL IV DATA: Not applicable SIGNED BY: DIONNA Shipman April 04, 2025 12:27 PMOhiohealth Grove City [facility] [id number] Nurse Note* Janine Tompkins RN - 04/04/2025 [...] REVIEWED: YES PROCEDURE: MRI - Conditional Pacemaker [employer] Administrative Office Manager Device - Settings: DOO 90 bpm Physiologic monitoring per standard operating procedure. See vital sign flowsheet. PERIPHERAL IV ACCESS: Not applicable PATIENT TOLERATED PROCEDURE: Without incident. PATIENT DISCHARGED TO: Home/Self Care SIGNED BY: TANIA Barnett Patient arrived here today for an MRI. Patients [employer] Pacemaker was placed in MRI safe mode by shop technician & device. Vitals remained stable throughout - see flowsheet. MRI was completed and then pacemaker was taken out of MRI safe mode and tolerated well. Patient was discharged home with family. [facility]05-14-2025 Nurse Note* Janine Tompkins RN - [...] REVIEWED: YES PROCEDURE: MRI - Conditional Pacemaker [employer] Administrative Office Manager Device - Settings: DOO 90 bpm Physiologic monitoring per standard operating procedure. See vital sign flowsheet. PERIPHERAL IV ACCESS: Not applicable PATIENT TOLERATED PROCEDURE: Without incident. PATIENT DISCHARGED TO: Home/Self Care SIGNED BY: TANIA Barnett Patient arrived here today for an MRI. Patients [employer] Pacemaker was placed in MRI safe mode by shop technician & device. Vitals remained stable throughout - see flowsheet. MRI was completed and then pacemaker was taken out of MRI safe mode and tolerated well. Patient was discharged home with family. documented in this encounterBarberton Citizens Hospital05-12-2025 History of Present illness Narrative* Jelly [...] PATIENT PRESENTS WITH AN IMPLANTABLE OR ATTACHED CIVIL ENGINEER: No RADIOLOGY DEPARTMENT: General X-ray: Exam(s) Completed: Chest X-Ray PERIPHERAL IV DATA: Not applicable SIGNED BY: Rayne Khoury April 02, 2025 9:34 AM documented in this encounterBarberton Citizens Hospital05-12-2025 NoteHNO ID: [id number] Author: JELLY SANCHEZ Tech Service: ? Author Type: Ship Wirer Type: Progress Notes Filed: 04/02/2025 09:34 Note [...] PATIENT PRESENTS WITH AN IMPLANTABLE OR ATTACHED CIVIL ENGINEER: No RADIOLOGY DEPARTMENT: General X-ray: Exam(s) Completed: Chest X-Ray PERIPHERAL IV DATA: Not applicable SIGNED BY: Rayne Khoury April 02, 2025 9:34 AMOhiohealth Grove City Methodist [id number] Telephone encounter Note* Telephone Encounter - Soumya Moss RN - 03/28/2025 9:45 AM EDT Voicemail received March 27, 2025 6874 Spouse calling to check on status of [facility]. Call to pharmacy, [facility] has been authorized. They will be reaching out to patient to discuss co-pay. [facility]05-07-2025 Miscellaneous Notes* Telephone Encounter - Soumya Moss RN - 03/28/2025 9:45 AM EDT Voicemail received March 27, 2025 1458 Spouse calling to check on status of [facility]. Call to pharmacy, [facility] has been authorized. They will be reaching out to patient to discuss co-pay. documented in this encounterBarberton Citizens Hospital04-19-2025 Radiology Diagnostic study note [facility] Imaging Services [address] [place] [address] HIP, UNI W/ Pelvis 2-3 Views MR#: [id number] Acct: [id number] Name: MANSI CARO Rep #: [id number] : 1955 F 70 From: Vickie Coles MD PCP: Marci Lopez DO Status: REG E R Study:HIP, UNI W/ Pelvis 2-3 Views Date of Ex am: 03/10/25 Exam# [id number] Ordering Dr: Mellisa Taylor PROCEDURE: HIP, UNI [...] IMPRESSION: Negative left hip radiographs. Reading Location: [id number] CC: Marci Lopez DO; AMRIK Harrison ~ 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: Signed [facility]04-19-2025 Telephone encounter Note* Telephone Encounter - Linda Valdez RN - 03/10/2025 8:02 AM EDT S-Patient and patient spouse calling in re: patient fell yesterday and has Left hip pain . B-Happened yesterday A-states having hard time walking due to pain, No COVID Symptoms. Has a brouis, no other sites withpain R-Scheduled Same Day After hours appt today @ 10:00a 03/10/25 @ [facility], address provided Reason for Disposition MILD weakness (i.e., does not interfere with ability to work, go to school, normal activities) (Exception: Mild weakness is a chronic symptom.) Answer Assessment - Initial Assessment Questions . Protocols used: Falls and Vfeuzlg-VKORK-RO [facility] [id number] Miscellaneous Notes* Telephone Encounter - Linda Valdez RN - 03/10/2025 8:02 AM EDT S-Patient and patient spouse calling in re: patient fell yesterday and has Left hip pain . B-Happened yesterday A-states having hard time walking due to pain, No COVID Symptoms. Has a brouis, no other sites withpain R-Scheduled Same Day After hours appt today @ 10:00a 03/10/25 @ [facility], address provided Reason for Disposition MILD weakness (i.e., does not interfere with ability to work, go to school, normal activities) (Exception: Mild weakness is a chronic symptom.) Answer Assessment - Initial Assessment Questions . Protocols used: Falls and Xrqoauq-XDBDB-JD documented in this encounterSMercy Health Willard HospitalLqvesa01-55-9135 Telephone encounter Note* Telephone Encounter - Dipti Stewart - 03/09/2025 12:14 PM EDT Spouse called inquiring status of RX for valbenazine (INGREZZA) 40 mg capsule. Informed Spouse that order was signed on 02/27/2025. Order has been faxed to [facility]: [phone]. Spouse provided phone number for pharmacy ([phone]) to follow up on this request. Dipti Stewart [facility]04-18-2025 Miscellaneous Notes* Telephone Encounter - Dipti Stewart - 03/09/2025 12:14 PM EDT Spouse called inquiring status of RX for valbenazine (INGREZZA) 40 mg capsule. Informed Spouse that order was signed on 02/27/2025. Order has been faxed to [facility]: [phone]. Spouse provided phone number for pharmacy ([phone]) to follow up on this request. Dipti Stewart documented in this encounterBarberton Citizens Hospital04-10-2025 Telephone encounter Note * Telephone Encounter - Kalen Casey RT(R) - 03/01/2025 3:27 PM EDT Hello, You have ordered an MRI on this patient with an implanted cardiac device. To clear the patient, as per our policy, patient will need a 2 view CXR prior to MRI scan. CXR is used to confirm there are no broken or abandoned leads. Thank you, Kalen Hall(R)(MR),[facility] Safety [facility]04-10-2025 Miscellaneous Notes* Telephone Encounter - Kalen Casey RT(R) - 03/01/2025 3:27 PM EDT Hello, You have ordered an MRI on this patient with an implanted cardiac device. To clear the patient, as per our policy, patient will need a 2 view CXR prior to MRI scan. CXR is used to confirm there are no broken or abandoned leads. Thank you, Kalen Hall(R)(MR),[facility] Safety [facility] documented in this encounterBarberton Citizens Hospital04-09-2025 NoteHNO ID: [id number] Author: LEYLA MURPHY MD Service: ? Author Type: Physician Type: Progress Notes Filed: 02/28/2025 09:12 Note Text: [facility] - FOLLOW UP EVALUATION The patient consented to the use of ambient AI software for draft documentation of the visit consistent with [facility]?s Notice of Privacy Practices. Jesus Manuel Freitas DO, DO [address] [facility] [address] Dear Jesus Manuel Freitas DO, DO: I [...] that cannabis use during a visit to [place] temporarily alleviated her symptoms. She reports difficulty [...] 02/27/2025 in N (more content not included)... [facility]04-09-2025 History of Present illness Narrative* Leyla Murphy MD - 02/28/2025 8:58 AM EDT [facility] - FOLLOW UP EVALUATION The patient consented to the use of [employer] software for draft documentation of the visit consistent with [facility] s Notice of Privacy Practices. Jesus Manuel Freitas DO, DO [address] [facility] [address] Dear Jesus Manuel Freitas DO, DO: I [...] that cannabis use during a visit to [place] temporarily alleviated her symptoms. She reports difficulty [...] Neurology [facility] from 10/20/2023 in [facility] T Score 26.7 32.4 [...] Exercise: Last PT Date: Last OT Date: Last ST Date: Exercises Regularly: ALLERGIES Allergen Reactions Lipitor [Atorvastat* Heart racing; 07/04/10 patient states that she had started a lot of medication at this time and the she did not have a true allergic reaction and is willing to rechallenge [facility] RN Current Outpatient Medications Medication Sig Acetaminophen [...] 2+ 2+ Achilles 1+ 1+ Coordination Right: Vueuux-os-wnfp normal. Rapid alternating movement normal. Ysgw-ei-qwkn normal.Left: Luaezg-px-bmbg normal. Rapid alternating movement normal. Uicx-bu-qqwu normal. Gait Casual gait: Wide stance. Reduced [...] primary parkinsonism. However, no Sinemet response and Clemenica scan was performed which was negative. Difficult [...] Ingrezza 40 mg daily; prescription sent to [facility] for processing. - Patient and family educated on potential side effects and the process of obtaining medication through a specialty pharmacy. The following are the current problems noted and addressed during this visit: Essential tremor (primary encounter diagnosis) Dyskinesia, tardive Plan 02/27/2025 Visit: - Start taking Ingrezza 40 mg daily for mouth movements; prescription sent to [facility]. Once this is controlled [...] or around: 05/29/25 Level of service : 76206 (40-68 min). Time spent 67 min on the day of service, which included preparing to see the patient, cznn-xs-ysqd patient care, completing clinical documentation, obtaining and/or [...] Sincerely, Leyla Murphy MD documented in this encounterBarberton Citizens Hospital04-09-2025 History of Present illness Narrative* Michel Ibrahim - 02/28/2025 7:32 AM EDT [facility] received prescription(s) for Ingrezza from Leyla Murphy's office. Benefits investigation was conducted, indicating that a prior authorization is required by patient's insurance plan with [employer]. Encounter will be updated once prior authorization has been submitted by [facility]. Michel Ibrahim CPhT Neurology, Cardiology & Infectious Disease [facility] documented in this encounterBarberton Citizens Hospital04-09-2025 NoteHNO ID: [id number] Author: WESLEY HAYES [facility] Service: ? Author Type: Pharmacist Type: Progress Notes Filed: 03/29/2025 10:22 Note Text: [facility] received prescription(s) for Autedo from Leyla Murphy's office. Benefits investigation was conducted, indicating that a prior authorization is required by patient's insurance plan with [employer]. PA was approved with details listed below: Plan Name: [employer] Approval Dates: 03/13/25 - 11/21/25 Pt's copay is $196. Shipment has been arranged, and pt will receive medication(s) on 03/30. Pt has been instructed to follow-up with clinic to confirm start date. 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 Patient confirmed: Yes Med/dose confirmed: Yes Supplies needed: Welcome packet Copay amount: 196 Copay form of payment: Credit card on file Payment confirmed: Yes Delivery method: [employer]Ex Signature required: Waived on patient request Delivery address: [address] [place] [id number] Delivery date: 03/30/25 Questions or concerns for the pharmacist?: Yes Patient questions/concerns: Medication cost, Medication dose, Medication route, Medication storage, Side effects, Delivery Did you have any side effects believed to be related to this medication, that resulted in hospitalization?: No [facility] CLINICAL ASSESSMENT - NEUROLOGY V7: Assessment to use: Initial Vaccination status assessment at initiation as andra (more content not included)...[facility]04-09-2025 NoteHNO ID: [id number] Author: ?, ?, ? Service: ? Author Type: ? Type: Progress Notes Filed: 03/13/2025 08:39 Note Text: [facility] received prescription(s) for Autedo from Leyla Murphy's office. Benefits investigation was conducted, indicating that a prior authorization is required by patient's insurance plan with [employer]. Note will be updated once prior authorization has been submitted. Jose Taveras CPhT (Dee) [facility] Neurology/Cardiology/Infections Disease [facility] P: [facility] NoteHNO ID: [id number] Author: ?, ?, ? Service: ? Author Type: ? Type: Progress Notes Filed: 03/16/2025 15:10 Note Text: [facility] received prescription(s) for Austedo from Dr. Murphy's office. Benefits investigation was conducted, indicating that a prior authorization is required. PA was approved with details listed below. Plan Name: [employer] Medicare Approval Dates: 03/13/25 - 11/21/25 Prescriptions will now be processed through [facility] for determination of next steps. Estefany Anguiano CPhT [facility], Neurology, Cardiology, AND Infectious Disease P: [phone] F: [phone]25 NoteHNO ID: [id number] Author: ?, ?, ? Service: ? Author Type: ? Type: Progress Notes Filed: 03/07/2025 10:28 Note Text: PA was initiated and pending review. Plan Name: [employer] Medicare Plan Agent/Rios: [id number] Case: [id number] Timeline: Standard Michel Ibrahim CPhT Neurology, Cardiology AND Infectious Disease [facility]25 NoteHNO ID: [id number] Author: ?, ?, ? Service: ? Author Type: ? Type: Progress Notes Filed: 02/28/2025 07:34 Note Text: [facility] received prescription(s) for Ingrezza from Leyla Murphy's office. Benefits investigation was conducted, indicating that a prior authorization is required by patient's insurance plan with [employer]. Encounter will be updated once prior authorization has been submitted by [facility]. Michel Ibrahim CPhT Neurology, Cardiology AND Infectious Disease [facility]25 NoteHNO ID: [id number] Author: WESLEY HAYES RPh Service: ? Author Type: Pharmacist Type: Progress Notes Filed: 03/09/2025 16:31 Note Text: [facility] received prescription(s) for Ingrezza from Leyla Jeffrey's office. Benefits investigation was conducted, indicating that a prior authorization is required by patient's insurance plan with [employer]. PA was denied with details listed below. Plan Name: [employer] Medicare Plan Agent/Rios: [id number] Case: [id number] Phone/ / [phone] Case: Denial reason: Full denial letter has been scanned into patients chart. [facility] will review and assess if appeal is appropriate. Note will be updated accordingly. Wesley [facility] Telephone encounter Note * Telephone Encounter - Dipti Stewart - 02/27/2025 4:54 PM EDT Patient's spouse reports that Patient has a [employer]-D implant (Cardiac Resynchronization Therapy with Defibrillator). Per scheduling protocol, staff message forwarded to Imaging Livevol cutler to contact Patient for appointment coordination/scheduling. Patient/Spouse will be contacted within 4 business days. Dipti Stewart [facility]04-08-2025 Miscellaneous Notes* Telephone Encounter - Dipti Stewart - 02/27/2025 4:54 PM EDT Patient's spouse reports that Patient has a [employer]-D implant (Cardiac Resynchronization Therapy with Defibrillator). Per scheduling protocol, staff message forwarded to Imaging Livevol cutler to contact Patient for appointment coordination/scheduling. Patient/Spouse will be contacted within 4 business days. Dipti Stewart documented [facility]04-[facility]-2025 Instructions* Patient Instructions* Leyla Murphy MD - 02/27/2025 4:44 PM EDT It was a pleasure to see you today. We addressed the following diagnoses: Essential tremor (primary encounter diagnosis) Dyskinesia, tardive My recommendations are as follows: - Start taking Ingrezza 40 mg daily for mouth movements; prescription sent to [facility]. Once this is controlled [...] or you can send a message through [employer]. You can also now schedule and select appointments through [employer]. Leyla Murphy MD documented in this [facility]Bar[facility]03-[facility]25 Evaluation note* Diagnosis Onset Date Resolution Status Admit Date Abdominal pain acute January 9:03am Pelvic pain acute February 13, 2 025 9:03am Chronic constipation chronic Nirmal h 2024 9:03am Abdominal pain acute January 8:26am Blood in stool acute January 8:26am Anemia chronic February 14 8:26am Chronic constipation chronic Nirmal h 2024 8:26am Generalized weakness acute April 19, 2025 11:26am Calcium deficiency acute April 202024 4:10pm CVA (cerebral vascular accident) acu te April 20, 2025 4:10pm Debility acute April 20, 2025 4:10pm Depression acute April 20, 2025 4:10pm Diabetes mellitus acute March 4:10pm GERD (gastroesophageal reflu x disease) acute April 20, 2025 4 :10pm Insomnia acute April 20, 2025 4:10pm Irritable bowel syndrome acute April 20, 2025 4:10pm Ischemic colitis acute March 4:10pm Muscle spasm acute April 20 4:10pm Overactive bladder acute April 202024 4:10pm Vitamin D deficiency acute April 20, 2025 4:10pm Chronic systolic heart failure chron ic April 20, 2025 4:10pm HLD (hyperlipidemia) chronic April 20, 2025 4:10pm Blood in stool acute April 25, 2025 6:41am Irritable bowel syndrome acute April 25, 2025 6:41am Ischemic colitis acute April 6:41am Chronic anemia chronic April 25, 2025 6:41am Ischemic cardiomyopathy acute J atnione2024 3:08pm Presence of biventricular implantable cardioverter-defibrillator acute May 29, 2025 3:08pm Presence of stent in coronar y artery acute May 29, 2025 3 :08pm [employer] Work Phone: [phone]) 336-1219183739-31-0837 Evaluation note* Diagnosis Onset Date Resolution Status Admit Date Abdominal pain acute January 9:03am Pelvic pain acute February 13, 025 9:03am Chronic constipation chronic Nirmal h 2024 9:03am Abdominal pain acute January 8:26am Blood in stool acute January 8:26am Anemia chronic February 14 8:26am Chronic constipation chronic Nirmal h 2024 8:26am Generalized weakness acute April 19, 2025 11:26am Calcium deficiency acute April 202024 4:10pm CVA (cerebral vascular accident) acu te April 20, 2025 4:10pm Debility acute April 20, 2025 4:10pm Depression acute April 20, 2025 4:10pm Diabetes mellitus acute March 4:10pm GERD (gastroesophageal reflu x disease) acute April 20, 2025 4 :10pm Insomnia acute April 20, 2025 4:10pm Irritable bowel syndrome acute April 20, 2025 4:10pm Ischemic colitis acute March 4:10pm Muscle spasm acute April 20 4:10pm Overactive bladder acute April 202024 4:10pm Vitamin D deficiency acute April 20, 2025 4:10pm Chronic systolic heart failure chron ic April 20, 2025 4:10pm HLD (hyperlipidemia) chronic April 20, 2025 4:10pm Blood in stool acute April 25, 2025 6:41am Irritable bowel syndrome acute April 25, 2025 6:41am Ischemic colitis acute April 6:41am Chronic anemia chronic April 25, 2025 6:41am Ischemic cardiomyopathy acute J 2024 3:08pm Presence of biventricular implantable cardioverter-defibrillator acute May 29, 2025 3:08pm Presence of stent in coronar y artery acute May 29, 2025 3 :08pm Abdominal pain acute May 30, 2025 1:59pm [employer] Work Phone: [phone]) 767-346903-09-2025 Telephone encounter Note* Telephone Encounter - Sari Parra RN - 01/28/2025 2:35 PM EDT S: Patient's spoke with [facility] nurse regarding medication concern B: Onset of [...] unable toanswer question Protocols used: Medication Question [id number] [facility] [id number] Miscellaneous Notes* Telephone Encounter - Sari Parra RN - 01/28/2025 2:35 PM EDT S: Patient's spoke with [facility] nurse regarding medication concern B: Onset of [...] unable toanswer question Protocols used: Medication Question [id number] documented in this [facility]03-04-2025 Evaluation note* Diagnosis Onset Date Resolution Status Admit Date Anemia chronic January 23 1:02pm Abdominal pain acute January 9:03am Pelvic pain acute February 13, 2 025 9:03am Chronic constipation chronic Nirmal h 2024 9:03am Abdominal pain acute January 8:26am Blood in stool acute January 8:26am Anemia chronic February 14 8:26am Chronic constipation chronic Nirmal h 2024 8:26am Generalized weakness acute April 19, 2025 11:26am Calcium deficiency acute April 202024 4:10pm CVA (cerebral vascular accident) acute April 20, 2025 4 :10pm Debility acute April 20, 2025 4:10pm Depression acute April 20, 2025 4:10pm Diabetes mellitus acute March 4:10pm GERD (gastroesophageal reflu x disease) acute April 20, 2025 4 :10pm Insomnia acute April 20, 2025 4:10pm Irritable bowel syndrome acute April 20, 2025 4:10pm Ischemic colitis acute March 4:10pm Muscle spasm acute April 20 4:10pm Overactive bladder acute April 202024 4:10pm Vitamin D deficiency acute April 20, 2025 4:10pm Chronic systolic heart failure chron ic April 20, 2025 4:10pm HLD (hyperlipidemia) chronic April 20, 2025 4:10pm Blood in stool acute April 25, 2025 6:41am Irritable bowel syndrome acute April 25, 2025 6:41am Ischemic colitis acute April 6:41am Chronic anemia chronic April 25, 2025 6:41am [facility] Work Phone: 1(745) 851-613702-28-2025 Telephone encounter Note* Telephone Encounter - Dipti [...] has been notified of appt change via [employer] message. Dipti Stewart [facility]02-28-2025 Miscellaneous Notes* Telephone Encounter - Dipti [...] has been notified of appt change via [employer] message. Dipti Stewart documented in this encounterBarberton [facility]02-28-2025 History of Present illness Narrative* Mellisa [...] PATIENT PRESENTS WITH AN IMPLANTABLE OR ATTACHED CIVIL ENGINEER: No RADIOLOGY DEPARTMENT: CT; Exam(s) Completed: Chest PERIPHERAL IV DATA: Not applicable SIGNED BY: TECHNOLOGIST Bhavya January 19, 2025 10:06 AM documented in this encounterBarberton Citizens Hospital02-28-2025 NoteHNO ID: [id number] Author: MELLISA COATS TECHNOLOGIST Service: ? Author [...] PATIENT PRESENTS WITH AN IMPLANTABLE OR ATTACHED CIVIL ENGINEER: No RADIOLOGY DEPARTMENT: CT; Exam(s) Completed: Chest PERIPHERAL IV DATA: Not applicable SIGNED BY: TECHNOLOGIST Bhavya January 19, 2025 10:06 [facility]* Diagnosis Onset Date Resolution Status Admit Date Ischemic cardiomyopathy acute F 2024 1:19pm Presence of biventricular implantable cardioverter-defibrillator acute u 2024 1:19pm Anemia chronic January 23 1:02pm Abdominal pain acute January 9:03am Pelvic pain acute February 13, 025 9:03am Chronic constipation chronic Nirmal h 2024 9:03am Abdominal pain acute January 8:26am Blood in stool acute January 8:26am Anemia chronic February 14 8:26am Chronic constipation chronic Nirmal h 2024 8:26am [facility] Work Phone: 1(250) 192-778402-27-2025 Evaluation note* Diagnosis Onset Date Resolution Status Admit Date Ischemic cardiomyopathy acute F ebruary 2025 1:19pm Presence of biventricular implantable cardioverter-defibrillator acute [...] Generalized weakness acute April 19, 2025 11:26am [facility] Work Phone: 1(578) 823-327902-27-2025 Evaluation note* Diagnosis Onset Date Resolution Status Admit Date Ischemic cardiomyopathy acute F 2024 1:19pm Presence of biventricular implantable cardioverter-defibrillator [...] Generalized weakness acute April 19, 2025 11:26am Calcium deficiency acute April 202024 4:10pm CVA (cerebral vascular accident) acute April 20, 2025 4 :10pm Debility acute April 20, 2025 4:10pm Depression acute April 20, 2025 4:10pm Diabetes mellitus acute March 4:10pm GERD (gastroesophageal reflu x disease) acute April 20, 2025 4 :10pm Insomnia acute April 20, 2025 4:10pm Irritable bowel syndrome acute April 20, 2025 4:10pm Ischemic colitis acute March 4:10pm Muscle spasm acute April 20 4:10pm Overactive bladder acute April 202024 4:10pm Vitamin D deficiency acute April 20, 2025 4:10pm Chronic systolic heart failure chron ic April 20, 2025 4:10pm HLD (hyperlipidemia) chronic April 20, 2025 4:10pm Blood in stool acute April 25, 2025 6:41am Irritable bowel syndrome acute April 25, 2025 6:41am Ischemic colitis acute April 6:41am Chronic anemia chronic April 25, 2025 6:41am [facility] Work Phone: 1(446) 279-734801-07-2025 Evaluation note* Diagnosis Onset Date Resolution Status Admit Date Ischemic cardiomyopathy acute J anuary 2024 1:48pm Presence of biventricular implantable cardioverter-defibrillator acute 2024 1:48pm Syncope and collapse acute 2024 1:48pm Abdominal pain acute December 122024 12:53pm Constipation inactive November 12:53pm Abdominal pain acute December 192024 2:48pm Pelvic pain acute December 19, 2024 2:48pm Occlusion of superior mesenteric artery chronic December 19, 2024 2:48pm Ischemic cardiomyopathy acute F ebruary 2024 1:19pm Presence of biventricular implantable cardioverter-defibrillator acute u dl2024 1:19pm Anemia chronic January 23 1:02pm Abdominal pain acute January 9:03am Pelvic pain acute February 13, 2 025 9:03am Chronic constipation chronic Nirmal h 2024 9:03am Abdominal pain acute January 8:26am Blood in stool acute January 8:26am Anemia chronic February 14 8:26am Chronic constipation chronic Nirmal h 2024 8:26am [facility] Work Phone: 1(287) 444-914201-03-2025 Telephone encounter Note* Telephone Encounter - Becky Diaz - 11/24/2024 12:43 PM EST Name of caller: Song Contact phone number: [phone] Relationship to Patient: spouse/SO Provider: John Practice: [facility] Chief Complaint/Reason for Call: Patient , Beatrice, is calling to follow up with Dr. Lopez after patient appointment with her Gasteoenterologist. He is requesting a call back to discuss what happened at her appointment regarding her colitis diagnosis. He can be reached at [phone]. Best time of day caller can be reached: Any Patient advised that office/PCP has 24-48 business hours to return their call: N/A [id number] Miscellaneous Notes* Telephone Encounter - Becky Diaz - 11/24/2024 12:43 PM EST Name of caller: Song Contact phone number: [phone] Relationship to Patient: spouse/SO Provider: John Practice: [facility] Chief Complaint/Reason for Call: Patient , Beatrice, is calling to follow up with Dr. Lopez after patient appointment with her Gasteoenterologist. He is requesting a call back to discuss what happened at her appointment regarding her colitis diagnosis. He can be reached at [phone]. Best time of day caller can be reached: Any Patient advised that office/PCP has 24-48 business hours to return their call: N/A documented in this [facility]01-02-2025 Evaluation note* Diagnosis Onset Date Resolution Status Admit Date Chronic abdominal pain inactive Constantin cedeno 2024 1:56pm Ischemic cardiomyopathy acute J anuary 2024 1:48pm Presence of biventricular implantable cardioverter-defibrillator acute Janua ry 2024 1:48pm Syncope and collapse acute Rogelio dl 2024 1:48pm Abdominal pain acute December 122024 12:53pm Constipation inactive November 12:53pm Abdominal pain acute December 192024 2:48pm Pelvic pain acute December 19, 2024 2:48pm Occlusion of superior mesenteric artery chronic December 19, 2024 2:48pm Ischemic cardiomyopathy acute F ebruary 2024 1:19pm Presence of biventricular implantable cardioverter-defibrillator acute u dl2024 1:19pm Anemia chronic January 23 1:02pm Abdominal pain acute January 9:03am Pelvic pain acute February 13, 025 9:03am Chronic constipation chronic Nirmal h 2024 9:03am Abdominal pain acute January 8:26am Blood in stool acute January 8:26am Anemia chronic February 14 8:26am Chronic constipation chronic Nirmal h 2024 8:26am [facility] Work Phone: 1(621) 413-674012-26-2024 Telephone encounter Note* Telephone Encounter - Karis Radha Bolden - 11/16/2024 10:17 AM EST Name of caller: Song Contact phone number: [phone] Relationship to Patient: spouse/SO Provider: Dr Marci Lopez [place] [facility] [place] Complaint/Reason for Call: Song called to let doctor know appointment is set for 12/19/24 with vascular surgeon, and is not sure if that's soon enough. Please advise Best time of day caller can be reached: PM [id number] Miscellaneous Notes* Telephone Encounter - Karis Bolden - 11/16/2024 10:17 AM EST Name of caller: Song Contact phone number: [phone] Relationship to Patient: spouse/SO Provider: Dr Marci Lopez [place] [facility] Chief Complaint/Reason for Call: Song called to let doctor know appointment is set for 12/19/24 with vascular surgeon, and is not sure if that's soon enough. Please advise Best time of day caller can be reached: PM documented in this [facility]12-24-2024 Telephone encounter Note* Telephone Encounter - Ghazala Gusman MD - 11/14/2024 4:08 PM EST Needs to come back in to reassess. In the meantime- can increase from 5mg qid to 10mg tid- messaged patient. [facility]12-24-2024 Miscellaneous Notes* Telephone Encounter - Ghazala [...] Janee Argueta RN * Telephone Encounter - Humaira Wetzel - 11/13/2024 [...] can prescribe to help with this? Pharmacy: [facility] Pharmacy in [place], [place] documented in this encounterBarberton [facility] Hospital12-24-2024 Telephone encounter Note * Telephone Encounter [...] stable. F/u 12 months Janee Argueta RN [facility]12-23-2024 Telephone encounter Note* Telephone Encounter - [...] can prescribe to help with this? Pharmacy: [facility]acy in [place], [place] [facility]11-28-2024 Evaluation note* Diagnosis Chronic kidney disease, stage 3a (HCC)- Primary documented in this encounter [id number] Telephone encounter Note* Telephone Encounter - Antonio Lockhart - 10/06/2024 4:26 PM EST Name of caller: Song Contact phone number: [phone] Relationship to Patient: spouse/SO Provider: Dr. Lopez Practice: [facility] Chief Complaint/Reason for Call: Song wanted to ask Dr. Lopez to consider long covid for patient. States all the symptoms are there. Requesting a call back to discuss. Please advise. Best time of day caller can be reached: any Patient advised that office/PCP has 24-48 business hours to return their call: [id number] Miscellaneous Notes* Telephone Encounter - Antonio Lockhart - 10/06/2024 4:26 PM EST Name of caller: Song Contact phone number: [phone] Relationship to Patient: spouse/SO Provider: Dr. Lopez [...] to return their call: documented in this encounterSMercy [facility] HospitalRltkbd02-04-4578 NoteHNO ID: [id number] Author: ROXANNE BOO RT(R) Service: ? Author Type: Ship Wirer Type: Progress Notes Filed: 08/13/2024 11:59 Note [...] PATIENT PRESENTS WITH AN IMPLANTABLE OR ATTACHED CIVIL ENGINEER: NA CREATININE: Creatinine Date Value Ref Range [...] 1150 PATIENT DISCHARGED TO: Ambulatory patient, left [place] department area. A Diagnostic radioactive procedure has taken place, with no further precautions necessary other than routine body substance precautions. More information regarding radiation safety can be found using this link: [email or web address] 20Diagnostic%20Nuclear%20Medicine%20Procedures.[email or web address] SIGNATURE: RT Daniel(Bairon) PATIENT NAME: Mansi Caro DATE: August 13, 2024 TIME: 11:58 AM PAGER/CONTACT #:[facility]09-22-2024 History of Present illness Narrative* Roxanne Boo [...] PATIENT PRESENTS WITH AN IMPLANTABLE OR ATTACHED CIVIL ENGINEER: NA CREATININE: Creatinine Date Value Ref Range [...] radiation safety can be found usingthis link: [email or web address] 20Diagnostic%20Nuclear%20Medicine%20Procedures.pdf SIGNATURE: RT Daniel(R) PATIENT NAME: Mansi Caro DATE: August 13, 2024 TIME: 11:58 AM PAGER/CONTACT #: documented in this encounterBarberton Citizens Hospital09-14-2024 Telephone encounter Note * Telephone Encounter - Dulce Maria Gibson RN - 08/05/2024 11:18 AM EDT S: Patient spoke with [facility] nurse regarding weakness and fatigue B: Onset of symptoms/concern ongoing A: States she seems to be getting weaker with time. She is now using a walker while a couple of weeks ago she was independent. Could she benefit from physical therapy? States today's blood pressure is 106/74 and yesterdays was 116/67, heart rate 74, yesterday was 80, and oxygen level 99%, [id number]%. States her weight was up 2 pounds from yesterday and will give her lasix 20mg prn per order. Eating and drinking as normal. Bowel as normal with Miralax, urine as normal. States that operating system programmer states he thinks her left side pain [...] Protocols used: Information Only Call - No [id number] [facility] [id number] Miscellaneous Notes* Telephone Encounter - Dulce Maria Gibson RN - 08/05/2024 11:18 AM EDT S: Patient spoke with [facility] nurse regarding weakness and fatigue B: Onset of symptoms/concern ongoing A: States she seems to be getting weaker with time. She is now using a walker while a couple of weeks ago she was independent. Could she benefit from physical therapy? States today's blood pressure is 106/74 and yesterdays was 116/67, heart rate 74, yesterday was 80, and oxygen level 99%, lqgvhouzw85%. States her weight was up 2 pounds from yesterday and will give her lasix 20mg prn per order. Eating and drinking as normal. Bowel as normal with Miralax, urine as normal. States that operating system programmer states he thinks her left side pain [...] Protocols used: Information Only Call - No [id number] documented in this encounterSMercy Health Willard [id number] Telephone encounter Note* Telephone Encounter - Anna Zarco RN - 08/04/2024 12:52 PM EDT S: Patient , Song, spoke with [facility] nurse regarding no improvement on weakness or fatigue B: Onset of symptoms/concern 08/04/24 A: States they wanted to give status update on patient. Song states no improvement of weakness or fatigue after seeing manufacturing engineer or vascular surgeon. States patient will be seeing operating system programmer today at 230. Declined triage as they [...] Protocols used: Information Only Call - No [id number] [facility] [id number] Miscellaneous Notes* Telephone Encounter - Anna Zarco RN - 08/04/2024 12:52 PM EDT S: Patient , Song, spoke with [facility] nurse regarding no improvement on weakness or fatigue B: Onset of symptoms/concern 08/04/24 A: States they wanted to give status update on patient. Song states no improvement of weakness or fatigue after seeing manufacturing engineer or vascular surgeon. States patient will be seeing operating system programmer today at 230. Declined triage as they [...] Protocols used: Information Only Call - No [id number] documented in this [facility]08-30-2024 History of Present illness Narrative* Yi Caal RT(Bairon) - 07/21/2024 11:30 AM EDT Radiology Service [...] PATIENT PRESENTS WITH AN IMPLANTABLE OR ATTACHED CIVIL ENGINEER: N/A RADIOLOGY DEPARTMENT: CT; Exam(s) Completed: Chest PERIPHERAL IV DATA: Not applicable SIGNED BY: RT Martina(Bairon) July 21, 2024 11:07 AM documented [facility]24 NoteHNO ID: [id number] Author: YI CAAL RT(Bairon) Service: ? Author Type: Technologist Type: Progress [...] PATIENT PRESENTS WITH AN IMPLANTABLE OR ATTACHED CIVIL ENGINEER: N/A RADIOLOGY DEPARTMENT: CT; Exam(s) Completed: Chest PERIPHERAL IV DATA: Not applicable SIGNED BY: RT Martina(Bairon) July 21, 2024 11:07 [facility]08-20-2024 Telephone encounter Note * Telephone Encounter - Deonna Sommer - 07/11/2024 3:20 PM EDT Name of caller: Ashtyn Contact phone number: [phone] Relationship to Patient: [facility] Provider: Dr. Lopez Practice: [facility] Chief Complaint/Reason for Call: Ashtyn from [facility] called in regards to a message they received from the office and they are not sure what this was in regards to. Ashtyn is requesting a call back and they can be reached at #[phone]. Please advise. Best time of day caller can be reached: Any Patient advised that office/PCP has 24-48 business hours to return their call: No [id number] Miscellaneous Notes* Telephone Encounter - Deonna Sommer - 07/11/2024 3:20 PM EDT Name of caller: Ashtyn Contact phone number: [phone] Relationship to Patient: [facility] Provider: Dr. Lopez Practice: [facility] Chief Complaint/Reason for Call: Ashtyn from [facility] called in regards to a message they received from the office and they are not sure what this was in regards to. Ashtyn is requesting a call back and they can be reached at #[phone]. Please advise. Best time of day caller can be reached: Any Patient advised that office/PCP has 24-48 business hours to return their call: No documented in this [facility]08-20-2024 NoteS: Patient's Song spoke with CAC nurse regarding patient's xray, and referral B: Onset of symptoms/concern today A: Song wants to discuss the result of the patient's xray, and state he with the patient's medical coding manager and was advised to see a manufacturing engineer. R: Please call Song at his # [phone] to discuss these issues. Patient understands care advice. No further needs at this time. Patient instructed to call back with new or worsening symptoms. Reason for Disposition [1] Follow-up call from patient regarding patient's clinical status AND [2] information urgent Protocols used: PCP Call - No [facility] Telephone encounter Note* Telephone Encounter - Bill Deluca RN - 07/11/2024 12:14 PM EDT S: Patient's Song spoke with [facility] nurse regarding patient's xray, and referral B: Onset of symptoms/concern today A: Song wants to discuss the result of the patient's xray, and state he with the patient's medical coding manager and was advised to see a manufacturing engineer. R: Please call Song at his # [phone] to discuss these issues. Patient understands care advice. No further needs at this time. Patient instructed to call back with new or worsening symptoms. Reason for Disposition [1] Follow-up call from patient regarding patient's clinical status AND [2] information urgent Protocols used: PCP Call - No Fzcoge-OBZSN-KE [id number] Miscellaneous Notes* Telephone Encounter - Bill Deluca RN - 07/11/2024 12:14 PM EDT S: Patient's Song spoke with [facility] nurse regarding patient's xray, and referral B: Onset of symptoms/concern today A: Song wants to discuss the result of the patient's xray, and state he with the patient's medical coding manager and was advised to see a manufacturing engineer. R: Please call Song at his # [phone] to discuss these issues. Patient understands care advice. No further needs at this time. Patient instructed to call back with new or worsening symptoms. Reason for Disposition [1] Follow-up call from patient regarding patient's clinical status AND [2] information urgent Protocols used: PCP Call - No [id number]-[id number] documented in this encounterSMercy Health Willard [id number] [facility]08-07-2024 Telephone encounter Note* Telephone Encounter - Jennifer Woods - 06/28/2024 8:08 AM EDT Name of caller: Song Contact phone number: [phone] Relationship to Patient: Spouse Provider: Practice: [place] Chief Complaint/Reason for Call: Patients Spouse called in to cancel appointment today at 10 am forLab work. Spouse stated he just got home with the Patient from the Emergency Room. Spouse stated the Patient had some labs done in the [place] [facility] and wanted to inform the doctor. Please advise. Best time of day caller can be reached: N/A Patient advised that office/PCP has 24-48 business hours to return their call: N/A [id number] Miscellaneous Notes* Telephone Encounter - Jennifer Woods - 06/28/2024 8:08 AM EDT Name of caller: Song Contact phone number: [phone] Relationship to Patient: Spouse Provider: Practice: [place] Chief Complaint/Reason for Call: Patients Spouse called in to cancel appointment today at 10 am forLab work. Spouse stated he just got home with the Patient from the Emergency Room. Spouse stated the Patient had some labs done in the [place] [facility] and wanted to inform the doctor. Please advise. Best time of day caller can be reached: N/A Patient advised that office/PCP has 24-48 business hours to return their call: N/A documented in this [facility]06-26-2024 History of Present illness Narrative* [...] noted at rest but better with activity. 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 Ongoing issues: Feeling [...] hypokalemia and dehydration with that hosptilzation at [facility] Recent cataract removal b/l No new N/T [...] and is willing to rechallenge Jose RN PAST MEDICAL HISTORY Diagnosis Date Anxiety [...] which included preparing to see the patient, mqtg-sj-parp patient care, completing clinical documentation, performing a medically appropriate examination, counseling and educating the patient/family/caregiver, and ordering medications, tests,or procedures. documented in this encounterBarberton [facility]04-22-2024 Discharge summary Author Alonso Marte [facility] March 13, 2024 5:55pm Note Date/Time March 13, 2024 5:5 0pm [facility] Medical Records Department [address] [place] [address] Discharge Summary 03/13/24 1747 MR#: [id number] Acct: [id number] Name: MANSI CARO Rep #:[id number] : 1955 69 From: Alonso Marte MD PCP: Dr. Adrienne Byers DO Status:ADM IN Location: [place] [address] Providers Date of Admission: 02/29/24 Primary Care Physician: [...] Depression - Escitalopram 10mg daily, stable chronic mcfp use, GDR not recommended. * Diabetes Mellitus [...] dischargehome with . Discharge home with 03/15/2024, [facility] PT/OT/ST/SN. Physical Exam Const alert General [...] pain Additional Instructions: Discharge home with 03/15/2024, [facility] PT/OT/ST/SN. Please Follow Up With: Shan Lockett DO When: 4 weeks. Meaningful Use Info [...] Instructions / Restrictions: Discharge home with 03/15/2024, [facility] PT/OT/ST/SN. Discharge Orders/Prescriptions Prescriptions: New acetaminophen [...] PO Q4H PRN PRN (Reason: Fever, pain 1-08/31) Qty: 0 0RF budesonide 3 mg Capsule,Delayed,Extend.Release [...] can be placed): Home Health Service 03/13/24 2229 <Electronically signed by Alonso Marte MD> Cosigner Signature (if applicable): CC: Dr. Adrienne Byers DO; Dr. Alonso Marte MD~ Signed [facility] Work Phone: 1(344) 585-578504-10-2024 Progress note Author Alonso Estuardo [facility] March 01, 2024 4:01pm Note Date/Time March 01, 2024 2:5 6pm [facility] Medical Records Department [address] [place] [address] Progress Note - Pharmacy 03/01/24 1452 MR#: [id number] Acct: [id number] Name: MANSI CARO Rep #:[id number] : 1955 69 From: Carlotta Singletary PCP: Dr. Adrienne Byers DO Status:ADM IN Location: [place] [address] Documented by User: Carlotta Singletary 03/01/24 15:37 [...] Tablet (1,000 Units) PO 50 mcg QHS [facility] Administration Clonazepam 1 mg 02/29/24 22:00 02/29/24 21:57 Clonazepam 1 Mg Tablet PO 1 mg QHS [facility] Administration Clopidogrel Bisulfate 75 mg 03/01/24 10:00 03/01/24 08:53 Clopidogrel Bisulfate 75 Mg Tablet PO 75 mg DAILY [facility] Administration Dicyclomine HCl 20 mg 02/29/24 16:45 03/01/24 11:27 Dicyclomine 10 Mg Capsule PO 20 mg TIDAC [facility] Administration Empagliflozin 10 mg 03/01/24 10:00 03/01/24 08:51 Empagliflozin 10 Mg Tablet PO 10 mg DAILY [facility] Administration Escitalopram Oxalate 10 mg 03/01/24 10:00 03/01/24 08:54 Escitalopram Oxalate 10 Mg Tablet PO 10 mg DAILY [facility] Administration Metformin HCl 500 mg 03/07/24 08:00 Metformin (Xr) 500 Mg [facility] Metoprolol Succinate 12.5 mg 03/01/24 10:00 03/01/24 08:52 Metoprolol(Xl)Succ 25 Mg Tablet PO 12.5 mg DAILY [facility] Administration Protocol Multivitamins 1 tablet 03/01/24 08:00 03/01/24 08:49 Multivitamins,Therapeutic Tablet PO [facility] Administration Nutritional Formula (Lactose Free) 120 ml 03/01/24 12:45 03/01/24 13:39 Glucerna Shake 120 Ml Liquid PO Not Given [facility] Pantoprazole Sodium 40 mg 02/29/24 22:00 03/01/24 08:52 Pantoprazole Sodium 40 Mg Tablet PO 40 mg BID [facility] Administration Polyethylene Glycol 17 gm 03/01/24 10:00 03/01/24 08:48 Polyethylene Glycol 3350 17 Gm Packet PO 17 gm DAILY [facility] Administration Potassium Chloride 20 meq 03/01/24 08:00 03/01/24 09:08 Potassium Chloride Oral Tablet 20 Meq PO 20 meq BIDCM [facility] Administration Prochlorperazine Maleate 10 mg 03/01/24 13:07 03/01/24 13:38 Prochlorperazine 5 Mg Tablet PO 10 mg Q4H PRN PRN Administration NAUSEA/VOMITING Sacubitril/Valsartan 0.5 each 02/29/24 22:00 03/01/24 08:50 Sacubitril/Valsartan 24/26 Mg Tablet PO 0.5 each BID [facility] Administration Sodium Chloride 10 - 40 ml [...] User: Dr. Alonso Marte MD 03/01/24 16:01 [facility] RX Drug Regimen Review Provider Comments Provider responsibility Provider Comments to Recommendations by Pharmacy: Agree 03/01/24 1537 <Electronically signed by Carlotta Singletary> Carlotta Singletary Cosigner Signature (if applicable): 03/01/24 1601 <Electronically signed by Alonso Marte MD> CC: ~ Signed [facility] Work Phone: 1(899) 731-979504-09-2024 History and physical note Author Alonso Estuardo [facility] February 29, 2024 8:00pm Note Date/Time February 29, 2024 7:43 pm [facility] Medical Records Department [address] [place] [address] History & Physical Exam 02/29/241933 MR#: [id number] Acct: [id number] Name: MANSI CARO Rep #:[id number] : 1955 69 From: Alonso Marte MD PCP: Dr. Adrienne Byers, Status:ADM IN Location: [facility] TCU08-1 HPI - General General Date of Admission: 02/29/24 Date of Service: 02/29/24 Chief Complaint: Here for rehabilitation. HPI Narrative 02/21/2024 MANSI CARO, is a 69 Female who presents to [facility] ED with abdominal pain. Abdominal pain, [...] Morphine, Zofran, Unasyn given. 02/21/2024 Admit to [facility]. IV antibiotics, consult GI for colitis. [...] strengthening, prior to discharge home with . [facility] Medical History (Updated 02/29/24 @ 19:[address] Alonso Marte MD) Anxiety and depression AV node dysfunction Cardiac resynchronization therapy defibrillator (SUPERVISOR [employer] RESERVATIONS-D) in place Cerebral palsy Congestive heart failure [...] qhs, Trazodone 50mg qhs prn, stable chronic mcfp use, GDR not recommended. * Abdominal cramping - Dicyclomine 20mg tidac. * HFrEF - Metoprolol succinate 15mg daily, Entresto 24/26mg 1/2 tablet bid, Jardiance 10mg daily, Aldactone 12.5mg mwf. * Nutrition - Ensure 120ml 4x/day, MVI daily. * Depression - Escitalopram 10mg daily, stable chronic termite helper use, GDR not recommended. * Diabetes Mellitus II - Metformin XR 500mg daily. * GERD - Pantoprazole 40mg bid. * Overactive bladder - Tolterodine 2mg daily. 02/29/241999 <Electronically signed by Alonso Marte MD> Cosigner Signature (if applicable): CC: Dr. Adrienne Byers DO; Dr. Alonso Marte MD~ Signed [facility] Work Phone: 1(620) 593-594804-09-2024 Progress note Author Yoandy Thakkar [facility] February 29, 2024 10:26am Note Date/Time February 29, 2024 10:2 6am [facility] Medical Records Department [address] [place] [address] [place] [address] Progress Note - Infect Disease 02/29/24 1025 MR#: [id number] Acct: [id number] Name: MANSI CARO Rep #:[id number] : 1955 69 From: Yoandy knight MD PCP: Dr. Adrienne Byers, DO Status:ADM IN Location: [facility] WD002-1 Physical Exam Narrative Feeling better, abd pain [...] Cosigner Signature (if applicable): CC: ~ Signed [facility] Work Phone: 1(636) 709-874304-09-2024 Discharge summary Author Ganeshmaricel Kiran [facility] February 29, 2024 11:33am Note Date/Time February 29, 2024 7:35 am [facility] Medical Records Department [address] [place] [address] Transfer to Extended Care MR#: [id number] Acct: [id number] Name: MANSI CARO Rep #:[id number] : 1955 69 From: Ganesh Amaya PCP: Dr. Adrienne Byers, DO Status:ADM IN Certification of patient admission REQUIRED AT TIME OF ADMISSION. I CERTIFY THAT POST-HOSPITAL ECF SERVICES ARE REQUIRED TO BE GIVEN ON AN IN-PATIENT BASIS BECAUSE OF THE ABOVE NAMED PATIENT'S NEED FOR CORRECTION CARE ON A CONTINUING BASIS FOR THE CONDITION(S) FOR WHICH HE/SHE WAS RECEIVING IN-PATIENT HOSPITAL SERVICES PRIOR TO HIS/HER TRANSFER TO THE F. 02/29/24 1133<Electronically signed by Ganesh Kiran MD> Diet Diet Order/Speech Therapy: 02/29/24 07:34 Diet: Transitional Type of Dietary Supplement:: Ensure Plus High Protein Is pt able to select menu?: No Diet Comments: 1999 gloria Routine Orders/Code Status Suppository Type: Dulcolax [...] to 6. * Patient was evaluated by medical coding manager 02/27: Patient passing flatus but no bowel [...] required. DVT prophylaxis: SCDs. Discussed with the human services case manager. Patient's wanted to go to [...] in before D/C Order can be placed): [facility] 02/29/24 1133 <Electronically signed by Ganesh Kiran MD> Cosigner Signature (if applicable): CC: Dr. Ben Johsnon DO; Dr. Adrienne Byers DO; Dr. Heike Horta MD; Dr.Robert Ariane MD ~ [facility] Work Phone: 1(911) 773-328704-08-2024 Progress note Author Shan Lockett [facility] February 28, 2024 5:29pm Note Date/Time February 28, 2024 5:30 pm [facility] Medical Records Department [address] [place] [address] Progress Note - GI 02/28/24 1727 MR#: [id number] Acct: [id number] Name: MANSI CARO Rep #:[id number] : 1955 69 From: Shan Lockett DO PCP: Dr. Adrienne Byers DO Status:ADM IN Location: [facility] HN884-1 Subjective Subjective Patient's diarrhea has subsided with [...] 15:42 02/28/24 15:42 02/28/24 15:42 02/28/24 15:44 04/06/24 22:00 Oxygen Flow Rate (L/min) 2 Oxygen [...] (Auto) 44.0 L, Lymph % (Auto) 44.4 H,Upton % (Auto) 6.9, Eos % (Auto) 4.3, [...] that plan. Charges/Coding Visit Charges Inpatient E&M: 16258 Subs Hosp 02/28/24 7893 <Electronically signed by Shan Lockett DO> Cosigner Signature (if applicable): CC: ~ Signed [facility] Work Phone: 1(501) 160-662404-08-2024 Progress note Author Ganesh Kiran [facility] February 28, 2024 1:13pm Note Date/Time February 28, 2024 8:26 am [facility] Medical Records Department [address] [place] [address] Progress Note - Hospitalist 02/28/24 0823 MR#: [id number] Acct: [id number] Name: MANSI CARO Rep #:[id number] : 1955 69 From: Ganesh Amaya PCP: Dr. Adrienne Byers, DO Status:ADM IN Location: [facility] TU482-0 Reason for Visit Reason for Visit: Diagnoses [...] (Auto) 44.0 L, Lymph % (Auto) 44.4 H,Upton % (Auto) 6.9, Eos % (Auto) 4.3, [...] to 6. * Patient was evaluated by medical coding manager 02/27: Patient passing flatus but no bowel [...] required. DVT prophylaxis: SCDs. Discussed with the human services case manager. Patient's wanted to go to TCU. Charges/Coding Visit Charges Inpatient E&M: 44714 Subs Hosp L2 02/28/24 1313 <Electronically signed by Ganesh Kiran MD> Cosigner Signature (if applicable): CC: ~ Signed [facility] Work Phone: 1(733) 869-185104-08-2024 Consult note Author [facility] February 28, 2024 1:02pm Note Date/Time February 28, 2024 1:02 pm [facility] Medical Records Department [address] [place] [address] Consultation - Infectious Dx 02/28/24 1258 MR#: [id number] Acct: [id number] Name: MANSI CARO Rep #:[id number] : 1955 69 From: Yoandy knight MD PCP: Dr. Adrienne Byers, DO Status:ADM IN Location: [address] Assessment & Plan Assessment/Plan (1) Colitis: PLAN: [...] performed and neg except as noted above. [facility] Medical History Anxiety and depression AV node dysfunction Cardiac resynchronization therapy defibrillator (SU[employer] RESERVATIONS-D) in place Cerebral palsy Congestive heart failure [...] (Auto) 44.0 L, Lymph % (Auto) 44.4 H,Upton % (Auto) 6.9, Eos % (Auto) 4.3, [...] Dr. Ben Johnson, DO; Dr. Adrienne Byers DO; Dr. Heike Horta MD; Dr.Robert Ariane MD~ Signed [facility] Work Phone: 1(389) 864-822604-08-2024 Consult note Author Bill Victor [facility] February 28, 2024 2:46am Note Date/Time February 28, 2024 2:46 am [facility] Medical Records Department [address] [place] [address] Pharmacokinetic/Renal -Consult 02/28/24 0245 MR#: [id number] Acct: [id number] Name: MANSI CARO Rep #:[id number] : 1955 69 From: Bill Charlton od PCP: Dr. Adrienne Byers, DO Status:ADM IN Y Location: [facility] MU732-6 Consult Antibiotic Management Pharmacy has been consulted [...] 1000 02/28/24 0246 <Electronically signed by Bill abssett> Date _ Bill Vitcor Cosigner Signature (if applicable): Date CC: ~ Signed [facility] Work Phone: 1(566) 607-848104-07-2024 Progress note Author Shan Lockett [facility] February 27, 2024 2:30pm Note Date/Time February 27, 2024 2:30 pm [facility] Medical Records Department [address] [place] [address] Progress Note - GI 02/27/24 1429 MR#: [id number] Acct: [id number] Name: MANSI CARO Rep #:[id number] : 1955 69 From: Shan Lockett DO PCP: Dr. Adrienne Byers, DO Status:ADM IN Location: [facility] YT544-7 Subjective Subjective Patient states that her abdominal [...] Neut % (Auto) 69.4, Lymph % (Auto) 22.4,Upton % (Auto) 6.2, Eos % (Auto) 1.5, [...] Urine, Clean Catch Legionella Antigen - Final 04/05/24 18:35 Urine, Clean Catch Streptococcus pneumoniae Antigen [...] medication regimen. Charges/Coding Visit Charges Inpatient E&M: 56171 Subs Hosp L3 02/27/24 1430 <Electronically signed by Shan Lockett DO> Cosigner Signature (if applicable): CC: ~ Signed [facility] Work Phone: 1(542) 739-248704-07-2024 Progress note Author Shan Lockett [facility] February 27, 2024 2:21pm Note Date/Time February 26, 2024 3:33 pm [facility] Medical Records Department [address] [place] [address] Progress Note - GI 02/26/24 1533 MR#: [id number] Acct: [id number] Name: MANSI CARO Rep #:[id number] : 1955 69 From: Shan Lockett DO PCP: Dr. Adrienne Byers, DO Status:ADM IN Location: [facility] MY503-4 Subjective Subjective She underwent CT scan abdomen [...] Clarity Clear, Urine pH 5.0, Ur Specific [place] 1.020, Urine Protein 15 H, Urine Glucose [...] 77.6 H, Lymph % (Auto) 15.8 L, Upton % (Auto) 5.7, Eos % (Auto) 0.2, [...] Signed: Shan Mckeon MD at 13:20 EDT Reading Location ID and State: [address] [place] [address] , Service support , Physical Exam Const alert, oriented x3, [...] Cosigner Signature (if applicable): CC: ~ Signed [facility] Work Phone: 1(286) 701-468004-07-2024 Progress note Author Heike Horta [facility] February 27, 2024 11:22am Note Date/Time February 27, 2024 8:46 am [facility] Medical Records Department [address] [place] [address] Progress Note 02/27/24 0839 MR#: [id number] Acct: [id number] Name: MANSI CARO Rep #:[id number] : 1955 69 From: Heike Horta MD PCP: Dr. Adrienne Byers, Status:ADM IN Location: [place] [address]-1 Subjective Subjective Patient seen and examined. She [...] Neut % (Auto) 69.4, Lymph % (Auto) 22.4,Upton % (Auto) 6.2, Eos % (Auto) 1.5, [...] awaiting placement Charges/Coding Visit Charges Inpatient E&M: 01214 Subs Hosp L2 02/27/24 1122 <Electronically signed by Heike Horta MD> Heike Horta MD Cosigner Signature (if applicable): CC: ~ Signed [facility] Work Phone: 1(626) 293-191304-06-2024 Progress note Author [facility] February 26, 2024 2:42pm Note Date/Time February 26, 2024 9:13 am [facility] Medical Records Department [address] [place] [address] Progress Note 02/26/2412 MR#: [id number] Acct: [id number] Name: MANSI CARO Rep #:[id number] : 1955 69 From: Heike Horta MD PCP: Dr. Adrienne Byers, DO Status:ADM IN Location: [place] [address]-1 Subjective Subjective Patient seen and examined. was [...] Nasal Cannula 2 02/26/24 02:59 02/26/24 02:59 02/26/24 02:59 02/26/24 02:59 02/26/24 07:35 02/26/24 07:35 [...] Clarity Clear, Urine pH 5.0, Ur Specific [place] 1.020, Urine Protein 15 H, Urine Glucose [...] 77.6 H, Lymph % (Auto) 15.8 L, [place] % (Auto) 5.7, Eos % (Auto) 0.2, [...] Signed: Yousif Elena MD at 13:42 EDT Reading Location ID and State: [facility] / [place] , Service support , Physical Exam Const alert, oriented x3, [...] awaiting placement Charges/Coding Visit Charges Inpatient E&M: 65355 Subs Hosp L3 02/26/24 1442 <Electronically signed by Heike Horta MD> Heike Horta MD Cosigner Signature (if applicable): CC: ~ Signed [facility] Work Phone: 1(589) 676-461604-06-2024 Consult note Author Yoandy Marcial [facility] February 26, 2024 11:30am Note Date/Time February 26, 2024 11:2 6am [facility] Medical Records Department [address] [place] [address] Pharmacokinetic/Renal -Consult 02/26/24 1126 MR#: [id number] Acct: [id number] Name: MANSI CARO Rep #:[id number] : 1955 69 From: Yoandy Marcial PCP: Dr. Adrienne Byers, DO Status:ADM IN Location: [place] [address] Consult Antibiotic Management Pharmacy has been consulted [...] Signature (if applicable): Date CC: ~ Signed [facility] Work Phone: 1(704) 285-244904-05-2024 Progress note Author Shan Lockett [facility] February 25, 2024 5:51pm Note Date/Time February 25, 2024 5:51 pm [facility] Medical Records Department [address] [place] [address] Progress Note - GI 02/25/24 1749 MR#: [id number] Acct: [id number] Name: MANSI CARO Rep #:[id number] : 1955 69 From: Shan Friend DO PCP: Dr. Adrienne Byers, DO Status:ADM IN Location: [facility] UV026-5 Subjective Subjective Patient's appetite is poor and [...] (Auto) 82.7 H, Lymph % (Auto) 10.3 L,[place]pton % (Auto) 6.3, Eos % (Auto) 0.3, [...] poor appetite. Charges/Coding Visit Charges Inpatient E&M: 99241 Subs Hosp L3 02/25/24 1751 <Electronically signed by Shan Friend DO> Cosigner Signature (if applicable): CC: ~ Signed [facility] Work Phone: 1(955) 873-937104-05-2024 Progress note Author [facility]ike [facility] February 25, 2024 4:51pm Note Date/Time February 25, 2024 10:4 1am [facility] Medical Records Department [address] [place] [address] Progress Note 02/25/24 1040 MR#: [id number] Acct: [id number] Name: MANSI CARO Rep #:[id number] : 1955 69 From: Heike Horta MD PCP: Dr. Adrienne Byers, DO Status:ADM IN [facility] Subjective Subjective Patient seen and examined. was [...] (Auto) 82.7 H, Lymph % (Auto) 10.3 L,Upton % (Auto) 6.3, Eos % (Auto) 0.3, [...] awaiting placement Charges/Coding Visit Charges Inpatient E&M: 95272 Subs Hosp L3 02/25/24 1525 <Electronically signed by Heike Horta MD> Hieke Horta MD Cosigner Signature (if applicable): CC: [...] Signature (if applicable): Date cc: ~* Signed [facility] Work Phone: 1(519) 431-847804-04-2024 Progress note Author Shan Lockett [facility] February 24, 2024 5:08pm Note Date/Time February 24, 2024 5:07 pm [facility] Medical Records Department [address] [place] [address] Progress Note - GI 02/24/24 1705 MR#: [id number] Acct: [id number] Name: MANSI CARO Rep #:[id number] : 1955 69 From: Shan Lockett DO PCP: Dr. Adrienne Byers, DO Status:ADM IN Location: [place]3 KA448-8 Subjective Subjective Patient had 1 bowel movement. [...] and Output for Last 24 Hours 02/22/24 02/23/24 02/24/24 23:59 23:59 23:59 Intake Total 2975.02 / [...] Neut % (Auto) 54.1, Lymph % (Auto) 37.2,Upton % (Auto) 6.1, Eos % (Auto) 2.2, [...] basis. 02/24/24 1707 <Electronically signed by Shan Locktet DO> Cosigner Signature (if applicable): CC: ~ Signed ADDENDUM by Shan Lockett DO on 02/24/24 at 1708 Multi Select Codes Visit Charges Visit Charges: 66995 Subs Hosp L3 02/24/24 170<Electronically signed by Shan Lockett DO> Cosigner Signature (if applicable): cc: ~* Signed [facility] Work Phone: 1(642) 891-188104-04-2024 Progress note Author Heike Horta [facility] February 24, 2024 3:42pm Note Date/Time February 24, 2024 9:35 am [facility] Medical Records Department [address] [place] [address] Progress Note 02/24/24 0932 MR#: [id number] Acct: [id number] Name: MANSI CARO Rep #:[id number] : 1955 69 From: Heike Horta MD PCP: Dr. Adrienne Byers DO Status:ADM IN Location: [place] [address]-1 Subjective Subjective Patient seen and examined. She [...] and Output for Last 24 Hours 02/22/24 02/23/24 02/24/24 23:59 23:59 23:59 Intake Total 2975.02 / [...] Neut % (Auto) 54.1, Lymph % (Auto) 37.2,Upton % (Auto) 6.1, Eos % (Auto) 2.2, [...] 22:45 Stool Clostridioides difficile (PCR) - Final 04/01/24 16:20 Stool Stool Occult Blood (EDUARDO) - [...] awaiting placement Charges/Coding Visit Charges Inpatient E&M: 15448 Subs Hosp L2 02/24/24 1542 <Electronically signed by Heike Horta MD> Heike Horta MD Cosigner Signature (if applicable): CC: ~ Signed [facility] Work Phone: 1(387) 781-386504-03-2024 Consult note Author Shan Friend [facility] February 23, 2024 5:03pm Note Date/Time February 21, 2024 5:48 pm [facility] Medical Records Department [address] [place] [address] Consultation - GI 02/21/24 1748 MR#: [id number] Acct: [id number] Name: MANSI CARO Rep #:[id number] : 1955 69 From: Shan Lockett DO PCP: Dr. Adrienne Byers DO Status:ADM IN Location: [address] HPI Consult Data Date of Consult: 02/21/24 [...] also progressed to worsening lower GI bleeding. [facility] Medical History Anxiety and depression AV node dysfunction Cardiac resynchronization therapy defibrillator (SUPERVISOR INTERNATIONAL RESERVATIONS-D) in place Cerebral palsy Congestive heart failure [...] (Auto) 88.4 H, Lymph % (Auto) 5.3L, Upton % (Auto) 5.5, Eos % (Auto) 0.0, [...] Clarity Clear, Urine pH 5.0, Ur Specific [place] 1.015, Urine Protein 15 H, Urine Glucose [...] reflux disease. Charges/Coding Visit Charges Inpatient E&M: 61514 SNF Init L2 02/23/24 1703 <Electronically signed by Shan Lockett DO> Cosigner Signature (if applicable): CC: Dr. Ben Johnson, ; Dr. Adrienne Byers, DO~ Signed [facility] Work Phone: 1(618) 508-643704-03-2024 Progress note Author Shan Lockett [facility] February 23, 2024 4:56pm Note Date/Time February 23, 2024 4:56 pm [facility] Medical Records Department [address] [place] [address] Progress Note - GI 02/23/24 1655 MR#: [id number] Acct: [id number] Name: MANSI CARO Rep #:[id number] : 1955 69 From: Shan Lockett DO PCP: Dr. Adrienne Byers DO Status:ADM IN Location: [place] [address]-1 Subjective Subjective She underwent colonoscopy yesterday for [...] Neut % (Auto) 58.7, Lymph % (Auto) 34.0,Upton % (Auto) 5.7, Eos % (Auto) 1.2, [...] bowel regimen. Charges/Coding Visit Charges Inpatient E&M: 02406 [facility] Hosp L3 02/23/24 3686 <Electronically signed by Shan Friend DO> Cosigner Signature (if applicable): CC: ~ Signed [facility] Work Phone: 1(405) 996-784704-03-2024 Progress note Author Heike Horta [facility] February 23, 2024 3:33pm Note Date/Time February 23, 2024 10:0 1am [facility] Medical Records Department [address] [place] [address] Progress Note 02/23/24 0959 MR#: [id number] Acct: [id number] Name: MANSI CARO Rep #:[id number] : 1955 69 From: Heike Horta MD PCP: Dr. Adrienne Byers, DO Status:ADM IN Location: [place] EH375-1 Subjective Subjective Patient seen and examined. She [...] Neut % (Auto) 58.7, Lymph % (Auto) 34.0,Upton % (Auto) 5.7, Eos % (Auto) 1.2, [...] 24-48 hours. Charges/Coding Visit Charges Inpatient E&M: 10229 Subs Hosp L2 02/23/24 9316 <Electronically signed by Heike Horta MD> Heike Horta MD Cosigner Signature (if applicable): CC: ~ Signed [facility] Work Phone: 1(593) 317-286904-02-2024 Procedure [facility] 02-22-2024 Procedure [facility]04-02-2024 Progress note Author Heike Horta [facility] February 22, 2024 2:23pm Note Date/Time February 22, 2024 2:15 pm [facility] Medical Records Department [address] [place] [address] Progress Note 02/22/24 1414 MR#: [id number] Acct: [id number] Name: MANSI CARO Rep #:[id number] : 1955 69 From: Heike Horta MD PCP: Dr. Adrienne Byers, DO Status:ADM IN Location: [facility] VT040-6 Subjective Subjective Patient seen and examined. Her [...] (Auto) 88.4 H, Lymph % (Auto) 5.3L, Upton % (Auto) 5.5, Eos % (Auto) 0.0, [...] Clarity Clear, Urine pH 5.0, Ur Specific [place] 1.015, Urine Protein 15 H, Urine Glucose [...] 76.2 H, Lymph % (Auto) 16.1 L, Upton % (Auto) 6.9, Eos % (Auto) 0.1, [...] 18:54 EDT Reading Location ID and State: [facility] / [place] Tel , Service support , Physical Exam [...] prophylaxis: SCDs. Charges/Coding Visit Charges Inpatient E&M: 71318 Subs Hosp L3 02/22/24 1423 <Electronically signed by Heike Horta MD> Heike Horta MD Cosigner Signature (if applicable): CC: ~ Signed [facility] Work Phone: 1(560) 523-858404-02-2024 Discharge summary Author Jose Jaime [facility] February 21, 2024 11:34pm Note Date/Time February 21, 2024 2:31 pm [facility] Medical Records Department [address] [place] [address] [place] [address] Emergency Department Summary 02/21/24 MR#: [id number] Acct: [id number] Name: MANSI CARO Rep #:[id number] : 1955 69 From: Jose Liu PCP: Dr. Adrienne Byers DO Status:ADM IN Location: [facility] CT415-7 HPI HPI - GI History of Present [...] some subjective chills but denies any fevers. [facility] Medical History Anxiety and depression AV node dysfunction Cardiac resynchronization therapy defibrillator (SUPERVISOR INTERNATIONAL RESERVATIONS-D) in place Cerebral palsy Congestive heart failure [...] 88.4 H Lymph % (Auto) 5.3 L Upton % (Auto) 5.5 Eos % (Auto) 0.0 [...] Color Urine Clarity Urine pH Ur Specific [place] Urine Protein Urine Glucose (UA) Urine Ketones Urine Occult Blood Urine Nitrite Urine Bilirubin Urine Urobilinogen Ur Leukocyte Esterase Urine RBC Urine WBC Ur Squamous Epith Cells Urine Bacteria Urine Mucus 02/21/24 17:02 WBC RBC Hgb Hct MCV MCH MCHC RDW Std Deviation RDW Coeff of Edita Plt Count MPV Immature Gran % (Auto) Neut % (Auto) Lymph % (Auto) Upton % (Auto) Eos % (Auto) Baso % [...] Clarity Clear Urine pH 5.0 Ur Specific [place] 1.015 Urine Protein 15 H Urine Glucose [...] Provider] - Disposition Disposition: Acute Care Hospital [facility] What to do if you have Problems For any increased pain, shortness of breath, bleeding, nausea or vomiting, chestpain, or any unexpected problems, contact your Primary Care Provider. Call [facility] ([phone]) or report to the closest Emergency Room. Call 911 if necessary. 02/21/24 1055 <Electronically signed by Jose Jaime DO> Cosigner Signature (if applicable): CC: Dr. Adrienne Byers DO ~ Signed [facility] Work Phone: [phone]) 116-464904-01-2024 History and physical note Author Ben Johnson [facility] February 21, 2024 9:35pm Note Date/Time February 21, 2024 9:35 pm [facility] Medical Records Department [address] [place] [address] H&P Exam - Hospitalist 02/21/242124 MR#: [id number] Acct: [id number] Name: MANSI CARO Rep #:[id number] : 1955 69 From: Ben Johnson DO PCP: Dr. Adrienne Byers, DO Status:ADM IN Location: [facility] GI076-8 HPI - General General Date of Admission: 02/21/24 Date of Service: 02/21/24 Chief Complaint: Abdominal pain, bright red blood in stool HPI Narrative MANSI CARO, is a 69 F who presents to the emergency room at [facility] for evaluation of right red rectal bleeding [...] neoplastic component. [facility], she will be placed on IV antibiotics, shewill be seen by gastroenterology, she may need endoscopic procedures. Labs willbe monitored. [facility] Medical History Anxiety and depression AV node dysfunction Cardiac resynchronization therapy defibrillator (SUPERVISOR INTERNATIONAL RESERVATIONS-D) in place Cerebral palsy Congestive heart failure [...] (Auto) 88.4 H, Lymph % (Auto) 5.3L, Upton % (Auto) 5.5, Eos % (Auto) 0.0, [...] Clarity Clear, Urine pH 5.0, Ur Specific [place] 1.015, Urine Protein 15 H, Urine Glucose [...] Colitis-etiology unclear, patient [facility], she was placed on IV antibiotics [...] 75 minutes Charges/Coding Visit Charges Inpatient E&M: 47869 Init Hosp L3 02/21/242134 <Electronically signed by Ben Johnson DO> Cosigner Signature (if applicable): CC: Dr. Ben Johnson DO; Dr. Adrienne Byers DO~ Signed [facility] Work Phone: 1(318) 904-170202-05-2024 Note ORIGINAL EXAMINATION: BONE DENSITOMETRY 12/27/2023 2:34 [...] 12/27/2023 3:14:57 PM Ordering Provider: ADRIENNE Manzanares [facility]01-17-2024 Discharge summary Author Uday Orosco [facility] December 08, 2023 6:11pm Note Date/Time December 08, 2023 4 :37pm [facility] Medical Records Department [address] [place] [address] Emergency Department Summary 12/08/23 MR#: [id number] Acct: [id number] Name: MANSI CARO Rep #:[id number] : [...] She has not been at her baseline. [facility] Medical History Anxiety and depression AV node dysfunction Cardiac resynchronization therapy defibrillator (SUPERVISOR INTERNATIONAL RESERVATIONS-D) in place Cerebral palsy Congestive heart failure [...] Disposition Disposition: Home, Self Care Capacity Legal Mail Weigher Reflex Medical hold order details:: IF a medical hold is selected below, a suggested order for a MEDICAL HOLD will reflex upon signing the document. Next of kin: [place] law dictates a PRIORITY LIST for identifying [...] your Primary Care Provider. Call [facility] ([phone]) or report to the closest Emergency Room. Call 911 if necessary. 12/08/23 1811 <Electronically signed by Uday Orosco DO> Cosigner Signature (if applicable): CC: Dr. Adrienne Byers DO ~ Signed [facility] Work Phone: [phone]) 749-151711-29-2023 History of Present illness Narrative* Sherif Ramirez MD - 10/20/2023 3:30 PM EST [facility] - FOLLOW UP EVALUATION Jesus Manuel Freitas DO, DO [address] [facility] [address] Dear Jesus Manuel Freitas DO, DO: I [...] her . We had a visit using: TierPM I have communicated my name and active licensure. The patient's identity and physical location wereverified at the time of this visit. Either the patient or their legal operations support representative has been informed of the risks [...] Flowsheet Row Appointment from 10/20/2023 in [facility] Visit from 05/12/2023 in Rehab Medicine [...] Associate Staff [facility] Discharge summary Author Camacho Aguilar [facility] October 12, 2023 11:27am Note Date/Time October 12, 2023 11:25am [facility] Medical Records Department [address] [place] [address] Instructions for Home/Discharge Instructions 10/12/23 1124 MR#: [id number] Acct: [id number] Name: MANSI CARO Rep #:[id number] : [...] MD; Dr. Adrienne Byers DO ~ Signed [facility] Work Phone: 1(139) 588-571711-20-2023 Progress note Author Camachoeliseo Aguilar [facility] October 11, 2023 10:04am Note Date/Time October 11, 2023 10:04am [facility] Medical Records Department [address] [place] [address] Progress Note - Hospitalist 10/11/23 1001 MR#: [id number] Acct: [id number] Name: MANSI CARO Rep #:[id number] : 1955 68 From: Camacho renner MD PCP: Dr. Adrienne Byers DO Status:ADM ANGELIA Location: [place] [address] Subjective Subjective Doing well, no issues overnight. [...] 33.5 L, Lymph % (Auto) 54.9 H, Upton % (Auto) 8.3, Eos % (Auto) 2.5, [...] DVT: Lovenox Charges/Coding Visit Charges Inpatient E&M: 68107 Subs Hosp L2 10/11/23 1004 <Electronically signed by Camacho Aguilar MD> Cosigner Signature (if applicable): CC: ~ Signed [facility] Work Phone: 1(726) 450-962511-19-2023 Progress note Author Tony Mayer [facility] October 10, 2023 10:13am Note Date/Time October 10, 2023 7:57am [facility] Medical Records Department [address] [place] [address] Progress Note - Hospitalist 10/10/23 0754 MR#: [id number] Acct: [id number] Name: MANSI CARO Rep #:[id number] : 1955 68 From: Tony Mayer MD PCP: Dr. Adrienne Byers, DO Status:ADM ANGELIA Location: [place] [address] Reason for Visit Reason for Visit: Diagnoses [...] 10/10/23 23:59 23:59 23:59 Intake Total 2019 / 1080 Balance 2019 1080 / 1080 [...] 35 Minutes Charges/Coding Visit Charges Inpatient E&M: 37124 Subs Hosp L2 10/10/23 1013 <Electronically signed by Tony Mayer MD> Cosigner Signature (if applicable): CC: ~ Signed [facility] Work Phone: 1(301) 526-450111-18-2023 Progress note Author Tony Mayer [facility] October 09, 2023 9:43am Note Date/Time October 09, 2023 9:15am [facility] Medical Records Department [address] [place] [address] Progress Note - Hospitalist 10/09/2312 MR#: [id number] Acct: [id number] Name: MANSI CARO Rep #:[id number] : 1955 68 From: Tony Mayer MD PCP: Dr. Adrienne Byers, DO Status:ADM ANGELIA Location: [place] [address] Reason for Visit Reason for Visit: Diagnoses [...] 23:59 Intake Total 200 / 200 2019 / 2170 270 / 270 Balance 200 / 200 2019 / 2170 270 / 270 Lab / Micro Data [...] 35 Minutes Charges/Coding Visit Charges Inpatient E&M: 63379 Subs Hosp L2 10/09/23 0943 <Electronically signed by Tony Mayer MD> Cosigner Signature (if applicable): CC: ~ Signed [facility] Work Phone: 1(562) 416-643711-17-2023 Progress note Author Tony Mayer [facility] October 08, 2023 12:45pm Note Date/Time October 08, 2023 8:45am [facility] Medical Records Department [address] [place] [address] Progress Note - Hospitalist 10/08/23 0844 MR#: [id number] Acct: [id number] Name: MANSI CARO Rep #:[id number] : 1955 68 From: Tony Mayer MD PCP: Dr. Adrienne Byers, DO Status:ADM ANGELIA Location: [place] [address] Reason for Visit Reason for Visit: Diagnoses [...] (Auto) 41.7 L, Lymph % (Auto) 47.6 H,Upton % (Auto) 9.0, Eos % (Auto) 0.9, [...] 41.9 L, Lymph % (Auto) 45.5 H, [place] % (Auto) 9.3, Eos % (Auto) 2.5, [...] 50 Minutes Charges/Coding Visit Charges Inpatient E&M: 79976 Subs Hosp L3 10/08/23 1245 <Electronically signed by Tony Mayer MD> Cosigner Signature (if applicable): CC: ~ Signed [facility] Work Phone: 1(439) 634-578411-16-2023 Discharge summary Author David Best [facility] October 07, 2023 4:57pm Note Date/Time October 07, 2023 1:03pm [facility] Medical Records Department [address] [place] [address] Emergency Department Summary 10/07/23 MR#: [id number] Acct: [id number] Name: MANSI CARO Rep #:[id number] : 1955 68 From: David Weller PCP: Dr. Adrienne Byers, Status:ADM ANGELIA Location: [address] History of Present Illness Chief Complaint: Stroke Alert Informant: patient, spouse/S.O. and SNF Narrative Narrative: Brought down from TCU initially seen in the [facility] as a stroke alert starting 15 minutes prior to arrival at 12:15 PM. Patient reports right-sided weakness. History of stroke in the past. She was recently seen this past Wednesday for stroke work- up with similar presentation. Initial evaluation in [facility] had right arm drift, right leg drift [...] left MCA infarct. [facility] Medical History (Updated 10/07/23 @ 16:[address] David Best DO) Anxiety and depression AV node dysfunction Cardiac resynchronization therapy defibrillator (SUPERVISOR INTERNATIONAL RESERVATIONS-D) in place Cerebral palsy Congestive heart failure [...] neurologist, hospitalist This note was generated with Solarus dictation software. It may contain incorrectwords, spelling, [...] 41.7 L Lymph % (Auto) 47.6 H Upton % (Auto) 9.0 Eos % (Auto) 0.9 [...] Signed: Yousif Elena MD at 14:14 EST Reading Location ID and State: [id number] / [employer] , Service support , Head/Neck CTA 10/07/23 12:37 IMPRESSION: Plaque [...] (excluding procedures): 30-74 minutes, Discussing w/Patient &/or Family/Burr Picker, Discussing w/Consultants, Arranging Admission or Transfer, Performing Direct Patient Care at Bedside and - (30 minutes) Discharge Plan Dx/Rx/DC Orders Clinical Impression: Transient ischemic attack, Ischemic cardiomyopathy, PFO (patent foramen ovale) Disposition Disposition: Acute Care Hospital [facility] Discharge Date/Time: 10/07/23 15:06 What to do if you have Problems For any increased pain, shortness of breath, bleeding, nausea or vomiting, chestpain, or any unexpected problems, contact your Primary Care Provider. Call [facility] ([phone]) or report to the closest Emergency Room. Call 911 if necessary. 10/07/23 1657 <Electronically signed by David Weller> Cosigner Signature (if applicable): CC: Dr. Adrienne Byers DO ~ Signed [facility] Work Phone: 1(376) 377-167411-16-2023 History and physical note Author Jaci Greco [facility] October 07, 2023 2:38pm Note Date/Time October 07, 2023 1:59pm [facility] Medical Records Department [address] [place] [address] H&P Exam - Hospitalist 10/07/23 1355 MR#: [id number] Acct: [id number] Name: MANSI CARO Rep #:[id number] : [...] and Plavix who now re-presents to the [facility] ED on 10/07/23 with history of [...] patient administered baclofen 10 mg p.o. x1. PFSH Medical History (Updated 10/07/23 @ 14:[address] Jaci Greco MD) Anxiety and depression AV node dysfunction Cardiac resynchronization therapy defibrillator (SUPERVISOR INTERNATIONAL RESERVATIONS-D) in place Cerebral palsy Coronary artery disease [...] (Auto) 41.7 L, Lymph % (Auto) 47.6 H,Upton % (Auto) 9.0, Eos % (Auto) 0.9, [...] and Plavix who now re-presents to the [facility] ED on 10/07/23 with history of [...] 16 minutes. Charges/Coding Visit Charges Inpatient E&M: 84166 Init Hosp L3 Procedures Hospitalists Procedures: 71258 Advncd Care Plan 30 Min 10/07/23 1438 <Electronically signed by Jaci Greco MD> Cosigner Signature (if applicable): CC: Dr. Jaci Greco MD; Dr. Adrienne Byers, DO~ Signed [facility] Work Phone: 1(805) 859-925311-12-2023 Progress note Author [facility] October 03, 2023 1:49pm Note Date/Time October 03, 2023 10:38am [facility] Medical Records Department [address] [place] [address] Progress Note - Pharmacy 10/03/23 1035 MR#: [id number] Acct: [id number] Name: MANSI CARO Rep #:[id number] : 1955 68 From: Talat Cameron PCP: Dr. Adrienne Byers, DO Status:ADM IN Location: [place] [address] Documented by User: Talat Cameron 10/03/23 11:16 [...] 75 Mg Tablet PO 75 mg QHS [facility] Administration Empagliflozin 10 mg 10/02/23 10:00 10/03/23 [...] 500 Mg Tablet PO 500 mg DAILYCM [facility] Administration Metoprolol Succinate 12.5 mg 10/02/23 10:00 10/03/23 09:15 Metoprolol(Xl)Succ 25 Mg Tablet PO 12.5 mg DAILY [facility] Administration Protocol Multivitamins 1 tablet 10/02/23 08:00 10/03/23 09:13 Multivitamins,Therapeutic [facility]t [facility] Multivitamins 1 cap 10/02/23 08:00 10/03/23 09:13 Vitamin B Comp W-C Capsule PO 1 cap DAILYCM [facility] Administration Nutritional Formula (Lactose Free) 120 ml 10/01/23 17:00 10/03/23 05:52 Glucerna Shake 120 Ml Liquid PO 120 ml 4X/DAY [facility] Administration Pantoprazole Sodium 40 mg 10/01/23 22:00 10/03/23 09:13 Pantoprazole Sodium 40 Mg Tablet PO 40 mg BID [facility] Administration Sacubitril/Valsartan 0.5 each 10/01/23 22:00 10/03/23 09:14 Sacubitril/Valsartan 24/26 Mg Tablet PO 0.5 each BID [facility] Administration Senna/Docusate Sodium 1 tablet 10/01/23 22:00 10/03/23 09:15 Senna/Docusate Sodium 1 Tablet PO 1 tablet BID [facility] Administration Spironolactone 12.5 mg 10/04/23 10:00 Spironolactone 25 Mg Tablet PO MOWEFR [facility] Tolterodine Tartrate 2 mg 10/01/23 15:17 Tolterodine [...] 1116 <Electronically signed by Talat Cameron> Talat Ortizignaudi Signature (if applicable): 10/03/23 1349 <Electronically signed by Alonso Marte MD> CC: ~ Signed [facility] Work Phone: 1(139) 888-340211-10-2023 History and physical note Author Alonso Marte [facility] October 01, 2023 4:18pm Note Date/Time October 01, 2023 4:07pm [facility] Medical Records Department [address] [place] [address] History & Physical Exam 10/01/23 1558 MR#: [id number] Acct: [id number] Name: MANSI CARO Rep #:[id number] : 1955 68 From: Alonso Marte MD PCP: Dr. Adrienne Byers, DO Status:ADM IN Location: [facility] HPI - General General Date of Admission: 10/01/23 Date of Service: 10/01/23 Chief Complaint: Here for rehabilitation. HPI Narrative 09/28/2023 MANSI CARO, is a 68 Female who presents to [facility] Emergency Department with neurologic signs/symptoms. Presents with [...] strengthening, prior to discharge home with . [facility] Medical History (Updated 10/01/23 @ 16:[address] Alonso Marte MD) Anxiety AV node dysfunction Cardiac resynchronization therapy defibrillator (SUPERVISOR INTERNATIONAL RESERVATIONS-D) in place Congestive heart failure (CHF) Coronary [...] EDEMA 09/28/23 [History Last Taken Unknown] vitamin Y22-htoey acid 1 tab PO DAILY vitamin 09/28/23 [...] Depression - Citalopram 20mg qhs, stable chronic mcfp use, GDR not recommended. * Anxiety - Clonazepam 1mg qhs, stable chronic mcfp use, GDR not recommended. 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 * Leg cramp - Vitamin B complex 1 cap daily. 10/01/23 0617 <Electronically signed by Alonso Marte MD> Cosigner Signature (if applicable): CC: Dr. Adrienne Byers DO; Dr. Alonso Marte MD~ Signed [facility] Work Phone: 1(876) 981-888411-10-2023 Discharge summary Author Ben Johnson [facility] October 01, 2023 11:57am Note Date/Time October 01, 2023 11:57am [facility] Medical Records Department [address] [place] [address] Transfer to Extended Care MR#: [id number] Acct: [id number] Name: MANSI CARO Rep #:[id number] : 1955 68 From: Ben Johnson DO PCP: Dr. Adrienne Byers DO Status:ADM IN Certification of patient admission REQUIRED AT TIME OF ADMISSION. I CERTIFY THAT POST-HOSPITAL ECF SERVICES ARE REQUIRED TO BE GIVEN ON AN IN-PATIENT BASIS BECAUSE OF THE ABOVE NAMED PATIENT'S NEED FOR CORRECTION CARE ON A CONTINUING BASIS FOR THE CONDITION(S) FOR WHICH HE/SHE WAS RECEIVING IN-PATIENT HOSPITAL SERVICES PRIOR TO HIS/HER TRANSFER TO THE F. 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 Hx of word finding [...] patient reports may be inpatient rehab at [facility]. Discharge Plan Admission Admit Date/Time: 09/28/23 [...] water retention) Patient Comments: TAKING NEEDED vitamin W82-ibmvh acid 1 tab PO DAILY pantoprazole 40 [...] Corona DO; Dr. Adrienne Byers DO ~ [facility] Work Phone: 1(931) 126-615011-09-2023 Progress note Author [facility] September 30, 2023 5:30pm Note Date/Time September 30, 2023 5 :30pm [facility] Medical Records Department [address] [place] [place] [address] Progress Note - Hospitalist 09/30/23 1726 MR#: [id number] Acct: [id number] Name: MANSI CARO Rep #:[id number] : 1955 68 From: Ben Johnson DO PCP: Dr. Adrienne Byers DO Status:ADM IN Location: [place] [address] Reason for Visit Reason for Visit: Diagnoses [...] 09/29/23 14:29 AG (Rec: 09/29/23 14:29 AG [id number]) Nutrition Malnutrition Evidence of Malnutrition Exists Yes [...] times a day will be given with Offerial Total clinical time spent by myself addressing patient's medical issues, reviewing all of her data, and collaborating with patient's care team: 35-minutes Charges/Coding Visit Charges Inpatient E&M: 12514 Subs Hosp L2 09/30/23 1730 <Electronically signed by Ben Johnson DO> Cosigner Signature (if applicable): CC: ~ Signed [facility] Work Phone: 1(356) 997-697911-09-2023 Discharge summary Author [facility] September 30, 2023 11:55am Note Date/Time September 30, 2023 1 1:52am [facility] Medical Records Department [address] [place] [address] Instructions for Home/Discharge Instructions 09/30/23 1151 MR#: [id number] Acct: [id number] Name: MANSI CARO Rep #:[id number] : 1955 68 From: Ben Johnson DO [...] water retention) Patient Comments: TAKING NEEDED vitamin J11-wfykm acid 1 tab PO DAILY pantoprazole 40 [...] DO; Dr. Adrienne Byers DO ~ Signed [facility] Work Phone: 1(781) 936-494111-08-2023 Progress note Author Ben Johnson [facility] September 29, 2023 5:39pm Note Date/Time September 29, 2023 5 :25pm [facility] Medical Records Department [address] [place] [address] Progress Note - Hospitalist 09/29/23 1717 MR#: [id number] Acct: [id number] Name: MANSI ACRO Rep #:[id number] : 1955 68 From: Ben Johnson DO PCP: Dr. Adrienne Halko, DO Status:ADM IN Location: [facility] [id number] Reason for Visit Reason for Visit: [...] 09/29/23 14:29 AG (Rec: 09/29/23 14:29 AG [id number]) Nutrition Malnutrition Evidence of Malnutrition Exists Yes [...] (Auto) 40.8 L, Lymph % (Auto) 49.7 H,Upton % (Auto) 7.6, Eos % (Auto) 1.0, [...] Clarity Clear, Urine pH 8.0, Ur Specific [place] 1.010, Urine Protein Negative, Urine Glucose (UA) [...] carotid or vertebral circulation bilaterally. Electronically Signed: aJsper Ochoa MD at 20:50 EST , Chest [...] team: 35-minute Charges/Coding Visit Charges Inpatient E&M: 32359 Subs Hosp L2 09/29/23 1739 <Electronically signed by Ben Johnson DO> Cosigner Signature (if applicable): CC: ~ Signed [facility] Work Phone: 1(655) 981-527511-08-2023 History and physical note Author Tony Mejia [facility] September 29, 2023 7:10am Note Date/Time September 28, 2023 1 0:22pm [facility] Medical Records Department [address] [place] [address] H&P Exam - Hospitalist 09/28/23 2210 MR#: [id number] Acct: [id number] Name: MANSI CARO Rep #:[id number] : 1955 68 From: Tony Williamson DO PCP: Dr. Adrienne Byers DO Status:ADM IN Location: [facility] [id number]- [id number] HPI - General General Date of Admission: [...] place, depression and osteoarthritis who presents to [facility] ER complaining of strokelike symptoms with fragmented [...] that was negative for Parkinson's disease at [facility], where she normally receives her care. She denies fever, chills, nausea, vomiting, diarrhea or constipation. Stroke alert was called in the ER with patient outside the window for tPA and already improving clinically with suspicion for a possible CVA due to her PFO and she was then admitted to the [facility] ongoing care for a stay that is expected to be greater than 48 hours. [facility] Medical History Anxiety Cardiac resynchronization therapy defibrillator (SUPERVISOR INTERNATIONAL RESERVATIONS-D) in place Congestive heart failure (CHF) Coronary [...] EDEMA 09/28/23 [History Last Taken Unknown] vitamin F30-tpdjh acid 1 tab PO DAILY vitamin 09/28/23 [...] place andoriented to time Coordination / Balance: tyhmds-yl-ftgg test normal and buih-al-ixjr test normal Speech: speech normal Motor Exam: [...] (Auto) 40.8 L, Lymph % (Auto) 49.7 H,Upton % (Auto) 7.6, Eos % (Auto) 1.0, [...] Clarity Clear, Urine pH 8.0, Ur Specific [place] 1.010, Urine Protein Negative, Urine Glucose (UA) [...] 55 minutes. Charges/Coding Visit Charges Inpatient E&M: 43258 Init Hosp L2 09/29/23 0710 <Electronically signed by Tony Corona DO> Cosigner Signature (if applicable): CC: Dr. Tony Corona DO; Dr. Adrienne Byers DO~ Signed [facility] Work Phone: [phone]) [phone] Discharge summary Author Uday Orosco [facility] September 28, 2023 10:10pm Note Date/Time September 28, 2023 8 :55pm [facility] Medical Records Department [address] [place] [address] Emergency Department Summary 09/28/23 MR#: [id number] Acct: [id number] Name: MANSI CARO Rep #:[id number] : 1955 68 From: Uday Orosco DO PCP: Dr. Adrienne Byers DO Status:ADM IN Location: [address] History of Present Illness Chief Complaint: [...] spastic right lowerextremity. Patient is on Plavix. [facility] Medical History Cardiac resynchronization therapy defibrillator (SUPERVISOR INTERNATIONAL RESERVATIONS-D) in place Diabetes mellitus Hyperlipidemia Hypertension Myocarditis PFO (patent foramen ovale) Home Medications amlodipine 5 mg-olmesartan 20 mg tablet (Joaquín) 0.5 udtab PO QODAY 11/18/14 [History Last Taken 05/16/16 22:00] citalopram 20 mg tablet 20 mg PO QHS 11/18/14 [History Last Taken 05/17/16 22:00] clonazepam 1 mg tablet 1 mg PO QHS anxiety 12/28/14 [History Last Taken 05/15/16 22:00] ergocalciferol (vitamin [...] EDEMA 09/28/23 [History Last Taken Unknown] vitamin G46-lxocf acid PO 09/28/23 [History Last Taken Unknown] [...] 40.8 L Lymph % (Auto) 49.7 H Upton % (Auto) 7.6 Eos % (Auto) 1.0 [...] Clarity Clear Urine pH 8.0 Ur Specific [place] 1.010 Urine Protein Negative Urine Glucose (UA) [...] problems, contact your Primary Care Provider. Call [facility] ([phone]) or report to the closest Emergency Room. Call 911 if necessary. 09/28/23 2210 <Electronically signed by Uday Orosco DO> Cosigner Signature (if applicable): CC: Dr. Adrienne Byers DO ~ Signed [facility] Work Phone: 1(143) 475-544211-07-2023 Discharge summary Author Uday Orosco [facility] September 28, 2023 10:10pm Note Date/Time September 28, 2023 8 :55pm [facility] Medical Records Department [address] [place] [address] Emergency Department Summary 09/28/23 MR#: [id number] Acct: [id number] Name: MANSI CARO Rep #:[id number] : 1955 68 From: dUay Orosco DO PCP: Dr. Adrienne Byers DO Status:ADM IN Location: [address] History of Present Illness Chief Complaint: [...] spastic right lowerextremity. Patient is on Plavix. [facility] Medical History Cardiac resynchronization therapy defibrillator (SUPERVISOR INTERNATIONAL RESERVATIONS-D) in place Diabetes mellitus Hyperlipidemia Hypertension Myocarditis [...] EDEMA 09/28/23 [History Last Taken Unknown] vitamin A46-mabdm acid PO 09/28/23 [History Last Taken Unknown] [...] 40.8 L Lymph % (Auto) 49.7 H Upton % (Auto) 7.6 Eos % (Auto) 1.0 [...] Clarity Clear Urine pH 8.0 Ur Specific [place] 1.010 Urine Protein Negative Urine Glucose (UA) [...] your Primary Care Provider. Call [facility] ([phone]) or report to the closest Emergency Room. Call 911 if necessary. 09/28/230 <Electronically signed by Uday Orosco DO> Cosigner Signature (if applicable): CC: Dr. Adrienne Byers DO ~ Signed [facility] Work Phone: 1(318) 269-723110-31-2023 History of Present illness Narrative* Nirmal Carpio, [...] 1010 PATIENT DISCHARGED TO: Ambulatory patient, left [place] department area. A Diagnostic radioactive procedure has taken place, with no further precautions necessary other than routine body substance precautions. More information regarding radiation safety can be found usingthis link: [email or web address] 20Diagnostic%20Nuclear%20Medicine%20Procedures.pdf SIGNATURE: RT Medina([place]) PATIENT NAME: Mansi Caro DATE: September 21, 2023 TIME: 10:00 AM PAGER/CONTACT #: documented in this encounterBarber[facility]2023 Note ORIGINAL EXAMINATION: CT OF THE [...] Sign Date: 09/07/2023 10:17:27 AM Ordering Provider: [facility]10-08-2023 Note . MICRO - Microbiology PROCEDURE: [...] Locations *1: This test was performed at: [facility], [address] [place] [address], [address] , [facility] ([place])08-04-2023 Hospital Discharge instructions Patient Education 08/04/2023 12:31:44 [...] animal will probably be confined with its medical front desk specialist for 10 days. If the animal does [...] bats may notbe noticed, especially by children. 6277-6965 The [employer]atplaces. [address] [place] [address]. All rights reserved. This information is not intended as a substitute for professional medical care. Always follow yourhealthcare professional's instructions. 08/04/2023 12:31:41 9- AO ED Rabies Follow-up Vaccination [facility] Rabies Follow-Up Vaccination Information Sheet SUMMARY [...] your follow-up rabies vaccinations. OR Call the [facility] at to schedule your follow-up vaccination appointments. Hours: 8a-4:30p, Wednesday through Wednesday OR Call [facility] to schedule your follow-up vaccination appointments. Follow Up Care 08/04/2023 11:57:19 With:ADRIENNE BYERS Address: [address] [place] [phone] Business (1) When:2-4 days [facility] 09-13-2023 Emergency department Discharge summary Discharge Instructions Thank you for allowing [facility] to assist you with your healthcare needs. The following is importantdischarge information regarding your hospital visit. Diagnosis from Today's Visit Bat exposure What to Do Next Instructions from Your Care Team No qualifying data available. Post Acute Orders No qualifying data available. You Need to Schedule the Following Appointments Follow Up with ADRIENNE BYERS When Within 2-4 days Where: [address] [place] [phone] Business (1) Allergies NKA Immunizations This Visit [...] animal will probably be confined with its medical front desk specialist for 10 days. If the animal does [...] bats may notbe noticed, especially by children. 6596-5653 [employer]. [address] [place] [address]. All rights reserved. This information is not intended as a substitute for professional medical care. Always follow yourhealthcare professional's instructions. [facility] Rabies Follow-Up Vaccination Information Sheet SUMMARY [...] your follow-up rabies vaccinations. OR Call the [facility] at to schedule your follow-up vaccination appointments. Hours: 8a-4:30p, Wednesday through Wednesday OR Call [facility] to schedule your follow-up vaccination appointments. Additional Information VACCINATE! IT SAVES LIVES! Members of the community who have not yet received the COVID-19 vaccine and would like to receive it can visit one of [facility] vaccine clinics. There are many vaccine clinic locations within the [facility]. For locations and available times, please visit [email or web address]/. It is important to note that some COVID mobile vaccine clinics are held outdoors and may be canceled in rainy or stormy conditions. To learn more about pediatric vaccinations (ages 5-11), we invite you to visit the [employer] Childrens webpage. https://www.immatics biotechnologiess.org/pages/7248-Lxyln-Zyhlnoveide-Rifpggpano-Grgpj-Tkm stions.htmlTo learn more about the COVID-19 vaccine, we invite you to visit the CDC website for a list of frequently asked questions. https://www.cdc.gov/coronavirus/2019-ncov/vaccines/faq.html [facility] Patient Portal Access Instructions: Stay connected with your healthcare team and access your personal medical information anytime with the [facility] Patient Portal. If you would like a full copy of your medical records please contact the [facility] Medical Records Department Wednesday through Wednesday between 8a.m. and 4:30p.m. Please follow the directions below to access the portal: 1.Access the email account you provided upon registration to the hospital.2.Look for an invitation email from [facility].3.Open the email and access the invitation link: Accept Invitation to [facility]4.Fill in the required tirado to create your account. Sign into www.[employer] with your username and password that you [...] you will allow to register on the [employer] Patient Portal for access to your information. You can also access the [employer] Patient Portal on the [employer] ricardo. Simply click on Health Records under [employer] and then click on the [employer] logo. HOW TO SAFELY DISPOSE OF PRESCRIPTION [...] Call your local pharmacy or go to [email or web address] to find one close to you.3.Make use of household items: Use cat litter or old coffee grounds to dispose medications if other options arenot available. Mix your drugs with these household products, seal them in an airtight container andthrow it into the garbage. Call [facility]: [phone] to be sure your drugs can be [...] aware that I should contact my doctor. Patient/Mail Weigher Signature: Date/Time: Relationship to Patient: Witness Name/Signature: Date/Time: [facility]08-10-2023 History of Present illness Narrative * Sherif Ramirez MD - 07/01/2023 9:03 AM EDT [facility] - FOLLOW UP EVALUATION Jesus Manuel Freitas DO [address] [facility] [facility] [address] Dear Jesus Manuel Freitas DO: I had the pleasure of seeing Ms. Caro for follow-up today. As you know she is a 68 year old right-handed female with a history of left hand tremor since 2021. She is seen alone. We had a visit using: TierPM I have communicated my name and active licensure. The patient's identity and physical location wereverified at the time of this visit. Either the patient or their legal operations support representative has been informed of the risks and benefits of -- and alternatives to -- treatment through a remote evaluation andconsents to proceed with the evaluation remotely. I have communicated my name and active licensure. The patient's identity and physical location wereverified at the time of this visit. Either the patient or their legal operations support representative has been informed of the risks [...] Office Visit from 05/12/2023 in [facility] from 10/12/2022 in [facility] T Score 32.4 39.8 [...] Associate Staff Movement disorders [facility] documented in this encounterBarberton [facility]07-19-2023 Note* Exam Date Time Procedure Performing Provider Status 06/09/23 12:53 PM Echocardiogram, Adult (AOH) Auth (Verified) [facility] 06-26-2023 Miscellaneous Notes* Telephone Encounter - Cheri Castillo RN - 05/17/2023 3:27 PM EDT This was approved Called left message on identified VM of Beatrice that this was approved and to check with [facility] pharmacy Called [facility] pharmacy, talked with Orquidea and then Rubina [...] medication on Wed., 05/19/23 documented in this encounterBarberton Citizens Hospital06-26-2023 Miscellaneous Notes* Telephone Encounter - Cheri Castillo RN - 05/17/2023 11:16 AM EDT Images from the original note were not included. * Telephone Encounter - Janee Argueta RN - 05/14/2023 10:48 AM EDT A PA has been submitted via [employer] Name:Keypr Phone Number: Patient ID number: [id number] Medication: Baclofen Dosage: 5mg Rios:[id number] PA Janee Argueta RN documented in this encounterBarberton Citizens Hospital06-23-2023 Miscellaneous Notes* Telephone Encounter - Janee Argueta RN - 05/14/2023 11:17 AM EDT PA submitted via covermeds. Janee Argueta RN * Telephone Encounter - Ghazala Gusman MD - 05/14/2023 8:56 AM EDT I'll forward to Janee for PA * Telephone Encounter - Humaira Wetzel - 05/13/2023 4:43 PM EDT [facility] Pharmacy was called and the pharmacist suggested [...] and advise. Humaira Wetzel documented in this encounterBarberton Citizens Hospital06-21-2023 History of Present illness Narrative* Ghazala [...] noted at rest but better with activity. 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 Ongoing issues: Feeling [...] allergic reaction and is willing to rechallenge DAJose RN PAST MEDICAL HISTORY Diagnosis Date Anxiety [...] which included preparing to see the patient, gqfw-xy-aozg patient care, completing clinical documentation, performing a medically appropriate examination, counseling and educating the patient/family/caregiver, and ordering medications, tests,or procedures. documented in this encounterBarberton Citizens Hospital06-21-2023 Nurse Note* Janee Argueta RN - 05/12/2023 1:24 PM EDT Patient presents for spasticity on right side The following tests/records were reviewed:no Do you need any refills today from the doctor?yes Janee Argueta RN documented in this encounterBarberton Citizens Hospital12-15-2022 Miscellaneous Notes* Telephone Encounter - Jelly [...] wait until she returns. documented in this encounterBarberton Citizens Hospital11-21-2022 History of Present illness Narrative* Sherif Ramirez MD - 10/12/2022 1:45 PM EST [facility] - FOLLOW UP EVALUATION Jesus Manuel Freitas, DO, DO [address] [facility] [address] Freitas, I had the pleasure of seeing Ms. Caro for follow-up today. As you know she is a 67 year old right-handed female with a history of left hand tremor since 2021. She is seen alone. We had a visit using: TierPM I received consent from the patient to [...] Flowsheet Row Appointment from 10/12/2022 in [facility] from 08/10/2022 in [facility] T Score 39.8 37.4 [...] HERVE MARIN Current Outpatient Medications Medication Sig carbidopa-levodopa (SINEMET) [...] research? Not currently Level of service : 02260 (10-19 min). Time spent 15 min on the day of service, which included preparing to see the patient, fhkg-bz-igft patient care, completing clinical documentation, obtaining and/or [...] Associate Staff Movement disorders [facility] documented in this encounterBarberton Citizens Hospital09-29-2022 Hospital Discharge instructions Patient Education 08/19/2022 [...] swelling in the outer vaginal area (labia) 5804-4852 The [employer]places. [address] [place] [address], [place] [address]. All rights reserved. This information is not [...] about: All medicines you take, including prescription, zhxc-yvn-qyvkgax, herbs, and supplements Any other symptoms you [...] Chest, arm, neck, back, or jaw pain 6297-0861 [employer]. [address] [place] [address]. All rights reserved. This information is not intended as a substitute for professional medical care. Always follow yourhealthcare professional's instructions. Follow Up Care 08/19/2022 14:59:40 With:LARY WHEAT DO Address: [address] [place] [phone] When:2-4 days [facility] 09-29-2022 Emergency department Discharge summary Discharge Instructions Thank you for allowing [facility] to assist you with your healthcare needs. The following is importantdischarge information regarding your hospital visit. Diagnosis from Today's Visit Generalized weakness Fatigue What to Do Next Instructions from Your Care Team No qualifying data available. Post Acute Orders No qualifying data available. You Need to Schedule the Following Appointments Follow Up with LARY WHEAT DO When Within 2-4 days Where: [address] [place] [phone] Allergies NKA Medications Please ask your primary [...] swelling in the outer vaginal area (labia) 0147-1462 The [employer]. [address] [place] [address], [place] [address]. All rights reserved. This information is not intended as a substitute for professional medical care. Always follow yourhealthcare professional's instructions. Dizziness (Uncertain Cause) Dizziness is a common symptom. It may be described as lightheadedness, spinning, or feeling like you are going to faint. Dizziness can have many causes. Be sure to tell the healthcare provider about: All medicines you take, including prescription, ikoh-xkg-kzoarwq, herbs, and supplements Any other symptoms you [...] Chest, arm, neck, back, or jaw pain 1375-1695 The [employer]. [address] [place] [address]. All rights reserved. This information is not intended as a substitute for professional medical care. Always follow yourhealthcare professional's instructions. Additional Information VACCINATE! IT SAVES LIVES! Members of the community who have not yet received the COVID-19 vaccine and would like to receive it can visit one of [facility] vaccine clinics. There are many vaccine clinic locations within the [facility]. For locations and available times, please visit [email or web address]. It is important to note that some COVID mobile vaccine clinics are held outdoors and may be canceled in rainy orstormy conditions. To learn more about pediatric vaccinations (ages 5-11), we invite you to visit the [facility] [employer] Childrens webpage. https://www.[facility].org/pages/4413-Gngpf-Upkhkzdunbt-Hotxyzkwcs-Bgxcn-Rhs stions.htmlTo learn more about the COVID-19 vaccine, we invite you to visit the [facility] website for a list of frequently asked questions. [email or web address]://[email or web address]/assets/Rwhsmfag-[email or web address]-Pdvehblv/uyblu-Faahiks-Dyrbukskyz _Asked-Questions.pdf [facility] [employer] Patient Portal Access Instructions: Stay connected with your healthcare team and access your personal medical information anytime with the [facility] Patient Portal. If you would like a full copy of your medical records please contact the [facility] Medical Records Department Wednesday through Wednesday between 8a.m. and 4:30p.m. Please follow the directions below to access the portal: 1.Access the email account you provided upon registration to the hospital.2.Look for an invitation email from [facility].3.Open the email and access the invitation link: Accept Invitation to [facility]4.Fill in the required tirado to create your account. Sign into www.[employer] with your username and password that you [...] you will allow to register on the [employer] Patient Portal for access to your information. You can also access the [employer] Patient Portal on the Sword.com ricardo. Simply click on Health Records under [employer] and then click on the [employer] logo. HOW TO SAFELY DISPOSE OF PRESCRIPTION [...] Call your local pharmacy or go to http://Fidus Writer.Nekst/8E6Ef9r to find one close to you.3.Make use of household items: Use cat litter or old coffee grounds to dispose medications if other options arenot available. Mix your drugs with these household products, seal them in an airtight container andthrow it into the garbage. Call [facility]: [phone] to be sure your drugs can be [...] aware that I should contact my doctor. Patient/Mail Weigher Signature: Date/Time: Relationship to Patient: Witness Name/Signature: Date/Time: [id number] Emergency department Discharge summary Discharge Instructions Thank [...] DO When Within 2-4 days Where: [address] [place] [phone] Allergies NKA Medications Please ask your primary [...] swelling in the outer vaginal area (labia) 0411-2562 The [employer]. [address] [place] [address]. All rights reserved. This information is not intended as a substitute for professional medical care. Always follow yourhealthcare professional's instructions. Dizziness (Uncertain Cause) Dizziness is a common symptom. It may be described as lightheadedness, spinning, or feeling like you are going to faint. Dizziness can have many causes. Be sure to tell the healthcare provider about: All medicines you take, including prescription, ogal-jyb-tnuqmwt, herbs, and supplements Any other symptoms you [...] Chest, arm, neck, back, or jaw pain 5179-4749 [employer]. [address] [place] [address], [place] [address]. All rights reserved. This information is not intended as a substitute for professional medical care. Always follow yourhealthcare professional's instructions. Additional Information VACCINATE! IT SAVES LIVES! Members of the community who have not yet received the COVID-19 vaccine and would like to receive it can visit one of [facility] vaccine clinics. There are many vaccine clinic locations within the [facility]. For locations and available times, please visit [email or web address]. It is important to note that some COVID mobile vaccine clinics are held outdoors and may be canceled in rainy orstormy conditions. To learn more about pediatric vaccinations (ages 5-11), we invite you to visit the [employer] Childrens webpage. https://www.[facility].org/pages/8481-Jcpjb-Ommdgjmnsum-Xclcwwxomr-Tkvlw-Qwp stions.htmlTo learn more about the COVID-19 vaccine, we invite you to visit the [facility] website for a list of frequently asked questions. [email or web address]/[email or web address]-[email or web address]-Enlfxaun/igdfp-Gjmveok-Zbnoutnloz _Asked-Questions.pdf [facility] [employer] Patient Portal Access Instructions: Stay connected with your healthcare team and access your personal medical information anytime with the [facility] Patient Portal. If you would like a full copy of your medical records please contact the [facility] Medical Records Department Wednesday through Wednesday between 8a.m. and 4:30p.m. Please follow the directions below to access the portal: 1.Access the email account you provided upon registration to the hospital.2.Look for an invitation email from [facility].3.Open the email and access the invitation link: Accept Invitation to [facility]4.Fill in the required tirado to create your account. Sign into www.[employer] with your username and password that you [...] you will allow to register on the [employer] Patient Portal for access to your information. You can also access the [employer] Patient Portal on the [employer]. Simply click on Health Records under [employer] and then click on the [employer] logo. HOW TO SAFELY DISPOSE OF PRESCRIPTION [...] Call your local pharmacy or go to http://Fidus Writer.Nekst/3H6Rb0o to find one close to you.3.Make use of household items: Use cat litter or old coffee grounds to dispose medications if other options arenot available. Mix your drugs with these household products, seal them in an airtight container andthrow it into the garbage. Call [facility]: [phone] to be sure your drugs can be [...] aware that I should contact my doctor. Patient/Mail Weigher Signature: Date/Time: Relationship to Patient: Witness Name/Signature: Date/Time: [id number] HCoV 229E RNA ENRIQUE+non-probe Ql (Nph)Not Detected *NA* (08/19/22 4:45 PM)AH Auto Viro/Sero [id number] Note ORIGINAL EXAMINATION: ONE XRAY VIEW OF [...] Sign Date: 08/19/2022 4:42:10 PM Ordering Provider: [facility]09-28-2022 Note ORIGINAL EXAMINATION: ONE XRAY VIEW OF [...] Sign Date: 08/19/2022 4:42:10 PM Ordering Provider: [facility]09-19-2022 History of Present illness Narrative* Sherif Ramirez MD - 08/10/2022 3:41 PM EDT [facility] - FOLLOW UP EVALUATION Jesus Manuel Freitas, DO, DO [address] [facility] [address] Freitas, I had the pleasure of seeing Ms. Caro for follow up today. she is a 67 year old right-handed female with a history of lef thand tremor since 2021. She is seen with her . We had a visit using: TierPM I received consent from the patient to perform the visit using this platform. Subjective HISTORY OF PRESENT ILLNESS: During her previous visit the following plan was made: Previous plan-06/23/2022 Visit: Tremor -patient will contact us via [employer]its[employer] messaging should she wish to proceed with [...] Flowsheet Row Appointment from 08/10/2022 in [facility] from 10/30/2021in [facility] [...] allergic reaction and is willing to rechallenge [facility] RN Current Outpatient Medications Medication Sig carbidopa-levodopa [...] Medication Schedule: Medications Level of service : 51756 (20-29 min). Time spent 20 min on the day of service, which included preparing to see the patient, dzee-fe-aakk patient care, completing clinical documentation, obtaining and/or [...] Associate Staff Movement disorders [facility] Instructions* Patient Instructions* Carleen Denton MD [...] scans like Clemencia scan. Discuss with your operating system programmer starting Sinemet and send us a message via [employer] if you'd like to start the medication Return in about 3 months (around 09/23/2022) for Virtual Visit. If there are any concerns before your next visit, please call or you can send a message through Twits[employer]. You can also now schedule and select appointments through [employer]. Carleen Denton MD documented in this [facility]Bar[facility] History of Present illness Narrative* Sherif Ramirez MD - 06/23/2022 3:23 PM EDT [facility] - NEW PATIENT EVALUATION Ghazala Gusman [address] [place] [address] Jesus Manuel Freitas DO, DO [address] [facility] [address] Gusman: thank you for referring [...] EF and she eventually needed insertion of SUPERVISOR [employer]NATIONAL RESERVATIONS-D in April. In addition to her new [...] keeping her appointments. She is independent in [facility] [employer]. Her grandmother may have had a tremor. [...] allergic reaction and is willing to rechallenge [facility] RN Current Outpatient Medications Medication Sig clopidogrel [...] 3+ 2+ Patellar 3+ 2+ Coordination Right: Oixlzm-rh-gsrg normal. Rapid alternating movement abnormality: Mild right-sided slowing of finger and hand movements in the context of spasticity. Moderate slowing of left finger and hand movements. Mild slowing is seen in left toe tapping and leg agility.. Left: Eyieqm-en-irgy normal. Rapid alternating movement abnormality: Gait Slow [...] the amplitude decrements starting after the 1st mtel-vbd-frckz sequence. Arm Movements Right 2-Mild. a) 3 [...] to discuss the levodopa trial with her operating system programmer to see if there is any cardiac [...] Visit: Tremor -patient will contact us via Tw[employer] messaging should she wish to proceed with Sinemet trial. Virtual follow-up in 3 months Interested in clinical research? Not currently Level of service : 04192 (60-74) min). Time spent 60 min on the day of service, which included preparing to see the patient, ycjq-fp-lkym patient care, completing clinical documentation, obtaining and/or [...] Associate Staff Movement disorders [facility] documented in this encounterBar[facility]07-14-2022 History of Present illness Narrative* Ghazala [...] noted at rest but better with activity. 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 No new N/T [...] which included preparing to see the patient, gvlv-zh-ojru patient care, completing clinical documentation, performing a medically appropriate examination, counseling and educating the patient/family/caregiver and ordering medications, tests, or procedures. documented in this encounterBarberton [facility]07-01-2022 Hospital Discharge instructions Patient Education 05/22/2022 [...] or a fever with an unknown cause. Lggq-uuo-scjiekh medicines will not shorten the duration of [...] your healthcare provider Feeling weak or dizzy 7645-8026 [employer]. [address] [place] [address]. All rights reserved. This information is not [...] where infectious diseases are common. Many people picker box operator a cold or other virus while traveling. [...] you were there Where you stayed (hotel, [place] house, tent) What you ate and drank If you were bitten by insects or other bugs If you swam in freshwater If you had sex or got a tattoo or piercing while you were there Check the CDC to get more information about specific infectious diseases in the areas you have traveled. 7691-1408 The [employer]. [address] [place] [address]. All rights reserved. This information is not intended as a substitute for professional medical care. Always follow yourhealthcare professional's instructions. 05/22/2022 15:07:47 Weakness (Uncertain Cause) [...] red color) Loss of consciousness Severe headache 9975-6304 [employer]. [address] [place] [address]. All rights reserved. This information is not intended as a substitute for professional medical care. Always follow yourhealthcare professional's instructions. Follow Up Care 05/22/2022 12:44:39 With:LARY WHEAT DO Address: [address] [place] [address] [place] [phone] When:2-4 days Comments:Schedule appointment for close follow-up.Drink plenty of fluids and rest.Use Tylenol or Advil for fever as needed.Continue current medications.Return to the ED if symptoms worsen. [facility] 07-01-2022 Emergency department Discharge summary Discharge [...] to the ED if symptoms worsen. Where: [address] [place] [address] [place] [phone] Allergies NKA Medications Please ask your primary [...] or a fever with an unknown cause. Fljd-zir-mefqwvy medicines will not shorten the duration of [...] your healthcare provider Feeling weak or dizzy 2621-9005 [employer]. [address] [place] [address], [place] [address]. All rights reserved. This information is not [...] where infectious diseases are common. Many people picker box operator a cold or other virus while traveling. [...] you were there Where you stayed (hotel, [place] house, tent) What you ate and drank If you were bitten by insects or other bugs If you swam in freshwater If you had sex or got a tattoo or piercing while you were there Check the CDC to get more information about specific infectious diseases in the areas you have traveled. 0680-2664 The [employer]. [address] [place] [address], [place] [address]. All rights reserved. This information is not [...] red color) Loss of consciousness Severe headache 1155-6931 [employer]. [address] [place] [address]. All rights reserved. This information is not intended as a substitute for professional medical care. Always follow yourhealthcare professional's instructions. Additional Information VACCINATE! IT SAVES LIVES! Members of the community who have not yet received the COVID-19 vaccine and would like to receive it can visit one of [facility] vaccine clinics. There are many vaccine clinic locations within the [facility]. For locations and available times, please visit www.[email or web address]. It is important to note that some COVID mobile vaccine clinics are held outdoors and may be canceled in rainy orstormy conditions. To learn more about pediatric vaccinations (ages 5-11), we invite you to visit the [facility] webpage. https://www.[facility].org/pages/1846-Fnmhr-Nefbmdolpuh-Uhfjxffvqo-Hpvuk-Tgt stions.htmlTo learn more about the COVID-19 vaccine, we invite you to visit the [facility] website for a list of frequently asked questions. https://purvis.[facility]/assets/Qrlxhwhi-vme-Tyvhczws/qjnla-Syptylz-Phedlbtzcw _Asked-Questions.pdf [facility] Patient Portal Access Instructions: Stay connected with your healthcare team and access your personal medical information anytime with the [facility] Patient [facility]. If you would like a full copy of your medical records please contact the [facility] Medical Records Department Wednesday through Wednesday between 8a.m. and 4:30p.m. Please follow the directions below to access the portal: 1.Access the email account you provided upon registration to the [facility].2.Look for an invitation email from [facility].3.Open the email and access the invitation link: Accept Invitation to [facility]4.Fill in the required tirado to create your account. Sign into www.katieOndot Systems with your username and password that you [...] you will allow to register on the [facility] Patient Portal for access to your information. You can also access the [facility] Patient Portal on the Sword.com ricardo. Simply click on Health Records under [employer] and then click on the [facility] logo. HOW TO SAFELY DISPOSE OF PRESCRIPTION [...] Call your local pharmacy or go to http://bit.ly/2L0Tg1i to find one close to you.3.Make use of household items: Use cat litter or old coffee grounds to dispose medications if other options arenot available. Mix your drugs with these household products, seal them in an airtight container andthrow it into the garbage. Call [facility]: [phone] to be sure your drugs can be [...] aware that I should contact my doctor. Patient/Mail Weigher Signature: Date/Time: Relationship to Patient: Witness Name/Signature: Date/Time: Katie [id number] Emergency department Discharge summary Discharge Instructions Thank [...] to the ED if symptoms worsen. Where: [address] [place] [address] [place] [phone] Allergies NKA Medications Please ask your primary [...] or a fever with an unknown cause. Jwuc-boe-ugddlge medicines will not shorten the duration of [...] your healthcare provider Feeling weak or dizzy 1694-8915 The [employer]. [address] [place] [address], [place] [address]. All rights reserved. This information is not [...] where infectious diseases are common. Many people picker box operator a cold or other virus while traveling. [...] you were there Where you stayed (hotel, [place] house, tent) What you ate and drank If you were bitten by insects or other bugs If you swam in freshwater If you had sex or got a tattoo or piercing while you were there Check the [facility] to get more information about specific infectious diseases in the areas you have traveled. 1784-4812 The [employer]. [address] [place] [address], [place] [address]. All rights reserved. This information is not [...] red color) Loss of consciousness Severe headache 8054-5146 [employer]. [address] [place] [address]. All rights reserved. This information is not intended as a substitute for professional medical care. Always follow yourhealthcare professional's instructions. Additional Information VACCINATE! IT SAVES LIVES! Members of the community who have not yet received the COVID-19 vaccine and would like to receive it can visit one of [facility] vaccine clinics. There are many vaccine clinic locations within the [facility]. For locations and available times, please visit [email or web address]. It is important to note that some COVID mobile vaccine clinics are held outdoors and may be canceled in rainy orstormy conditions. To learn more about pediatric vaccinations (ages 5-11), we invite you to visit the [facility] webpage. https://www.[facility].org/pages/8525-Nqwex-Hfyskbxvdgs-Tkgsqegqnh-Czktw-Ybn stions.htmlTo learn more about the COVID-19 vaccine, we invite you to visit the [facility] website for a list of frequently asked questions. https://purvis.[facility]/assets/Mklralph-kbe-Yhxgqhoz/wrakj-Qolzjjg-Jrbsidawjp _Asked-Questions.pdf [facility] Patient Portal Access Instructions: Stay connected with your healthcare team and access your personal medical information anytime with the [facility] Patient Portal. If you would like a full copy of your medical records please contact the [facility] Medical Records Department Wednesday through Wednesday between 8a.m. and 4:30p.m. Please follow the directions below to access the portal: 1.Access the email account you provided upon registration to the [facility].2.Look for an invitation email from [facility].3.Open the email and access the invitation link: Accept Invitation to [facility]4.Fill in the required tirado to create your account. Sign into www.katieOndot Systems with your username and password that you [...] you will allow to register on the [facility] Patient Portal for access to your information. You can also access the [facility] Patient Portal on the [employer]. Simply click on Health Records under [employer] and then click on the Katie logo. [...] Call your local pharmacy or go to http://bit.ly/4H7Ge0c to find one close to you.3.Make use of household items: Use cat litter or old coffee grounds to dispose medications if other options arenot available. Mix your drugs with these household products, seal them in an airtight container andthrow it into the garbage. Call [facility]: [phone] to be sure your drugs can be [...] been reviewed and explained to me and I,AMNSI CARO understand my current condition and have read and understand these discharge instructions. I have received a written copy of the plan/instructions. If I have questions, I am aware that I should contact my doctor. Patient/Mail Weigher Signature: Date/Time: Relationship to Patient: Witness Name/Signature: Date/Time: Katie [id number] Emergency department Discharge summary Discharge Instructions Thank [...] to the ED if symptoms worsen. Where: [address] [place] [address] [place] [phone] Allergies NKA Medications Please ask your primary [...] or a fever with an unknown cause. Unrc-aop-nmffmfn medicines will not shorten the duration of [...] your healthcare provider Feeling weak or dizzy 2193-0055 [employer]. [address] [place] [address], [place] [address]. All rights reserved. This information is not [...] where infectious diseases are common. Many people picker box operator a cold or other virus while traveling. [...] you were there Where you stayed (hotel, [place] house, tent) What you ate and drank If you were bitten by insects or other bugs If you swam in freshwater If you had sex or got a tattoo or piercing while you were there Check the [facility] to get more information about specific infectious diseases in the areas you have traveled. 3861-2268 The [employer]. [address] [place] [address], [place] [address]. All rights reserved. This information is not [...] red color) Loss of consciousness Severe headache 1950-1207 [employer]. [address] [place] [address]. All rights reserved. This information is not intended as a substitute for professional medical care. Always follow yourhealthcare professional's instructions. Additional Information VACCINATE! IT SAVES LIVES! Members of the community who have not yet received the COVID-19 vaccine and would like to receive it can visit one of [facility] vaccine clinics. There are many vaccine clinic locations within the [facility]. For locations and available times, please visit [email or web address]. It is important to note that some COVID mobile vaccine clinics are held outdoors and may be canceled in rainy orstormy conditions. To learn more about pediatric vaccinations (ages 5-11), we invite you to visit the [facility] webpage. https://www.[facility].org/pages/7304-Jkdef-Hhrmnrxwddb-Tynqsaqptb-Xncgs-Ttr stions.htmlTo learn more about the COVID-19 vaccine, we invite you to visit the [facility] website for a list of frequently asked questions. https://[email or web address].[email or web address]/assets/Hwtiekgs-csb-Quywkugx/fierv-Hxqyjqv-Keveftsrqu _Asked-Questions.pdf [facility] Patient Portal Access Instructions: Stay connected with your healthcare team and access your personal medical information anytime with the [facility] [employer] Patient Portal. If you would like a full copy of your medical records please contact the [facility] Medical Records Department Wednesday through Wednesday between 8a.m. and 4:30p.m. Please follow the directions below to access the portal: 1.Access the email account you provided upon registration to the [facility].2.Look for an invitation email from [facility].3.Open the email and access the invitation link: Accept Invitation to [facility]4.Fill in the required tirado to create your [...] you will allow to register on the [facility] [facility] Patient Portal for access to your information. You can also access the [facility] Patient Portal on the [email or web address] ricardo. Simply click on Health Records under noodlsta and then click on the Katie logo. [...] Call your local pharmacy or go to http://bit.ly/7B3Gi1g to find one close to you.3.Make use of household items: Use cat litter or old coffee grounds to dispose medications if other options arenot available. Mix your drugs with these household products, seal them in an airtight container andthrow it into the garbage. Call [facility]: [phone] to be sure your drugs can be [...] aware that I should contact my doctor. Patient/Mail Weigher Signature: Date/Time: Relationship to Patient: Witness Name/Signature: Date/Time: [id number] HCoV 229E RNA ENRIQUE+non-probe Ql (Nph)Not Detected *NA* (05/22/22 2:10 PM)AH Auto Viro/Sero [id number] Note ORIGINAL EXAMINATION: ONE XRAY VIEW OF [...] Sign Date: 05/22/2022 1:15:33 PM Ordering Provider: MARTHA [facility]07-01-2022 Note ORIGINAL EXAMINATION: ONE XRAY VIEW [...] Sign Date: 05/22/2022 1:15:33 PM Ordering Provider: MARTHA [place] [id number] Miscellaneous Notes* Telephone Encounter - Humaira Wetzel - 05/01/2022 11:14 AM EDT Mr. Pena, of Ms[facility] Car[facility] was called and he scheduled an appointment on 06/04/[address] Gusman at the [facility] for f2f appointment. Aware the Rx is [...] 05/01/2022 8:21 AM EDT [facility]; Last f2f on 07/10/2021. Last [...] and advise. Humaira Wetzel [facility] Hospital Discharge instructions Patient Education 04/25/2022 [...] action. To control pain, take prescription or pbdo-uky-icpuvql medicines as directed. Unless told not to, [...] Severe headache, neck pain, drowsiness, or confusion [id number] [employer] [place] [address]. All rights reserved. This information is not intended as a substitute for professional medical care. Always follow yourhealthcare professional's instructions. Follow Up Care 04/25/2022 23:32:02 With:Go to emergency room if symptoms worsen Address:Unknown When:2-4 days With:LARY WHEAT DO Address: [address] [place] [id number]- [phone] When:2-4 days [facility] 03-17-2022 Miscellaneous Notes* Telephone Encounter - Pina Kinsey - 02/05/2022 8:10 AM EDT Patient Song Chavez calling in stating him and the patient have questions about the medication Baclofen (Lioresal) that was prescribed. Please advise documented in [facility]Bar[facility] Hospital Discharge instructions Patient Education 12/25/2021 14:06:01 Heart Failure, Diagnosis, Dhns-ft-Yeji Heart Failure, Diagnosis Heart failure means that [...] 08/17/2009 Document Revised: 01/26/2020 Document Reviewed: 01/26/2020 [employer] Patient Education 2020 [employer]. Follow Up Care 12/24/2021 01:51:28 With:JAC CHRISTENSEN MD Address: [address] [place] [address] [place] [address]- [phone] When:12/30/2021 10:15:00 Comments:THIS APPOINTMENT WILL BE WITH REI ALFONSO CNP [facility] 02-02-2022 Evaluation + Plan noteExtracted from: [...] Appointment Date:12/30/2021 10:15:00 AM Scheduled Provider:REI ALFONSO Location:[facility] Appointment Type:CV OV Appointment Date:2022 11:00:00 AM Scheduled Provider: Location:[facility] Appointment Type:CV OV Appointment Date:02/12/2022 11:00:00 AM Scheduled Provider:LARY WHEAT DO Location:[facility] Appointment Type:PC OV Future Scheduled Tests Laboratory* Complete Blood Count 12/09/21 * Complete Metabolic Panel 12/09/21 [facility] 01-14-2022 Hospital Discharge instructions Patient Education [...] Slowly return to your usual activities. Take tdcx-edx-mhexzsu and prescription medicines only as told by [...] 08/03/2002 Document Revised: 04/10/2019 Document Reviewed: 04/10/2019 [employer] Patient Education 2020 [employer] Follow Up Care 11/22/2021 03:48:42 With:LARY WHEAT DO Address: [address] [place] [address]- [phone] When:1-2 days Comments:PLEASE CALL THIS OFFICE TO SCHEDULE A HOSPITAL FOLLOW UP APPOINTMENT. With:HARISH GIFFORD GEOLOGICAL SAMPLE TESTER-SHEET COMBINING OPERATOR Address: [address] [place] [address] [address] [place] [address]- [phone] When:12/12/2021 Comments:This is your heart failure appointment. An appointment with your operating system programmer will be made at this visit. With:Cardiac Rehab Address: [address] [place] [address]- When: Unknown Comments:The Cardiac Rehab department will call you in 4-5 weeks to schedule you for phase 2. We left you a brochure with information about cardiac rehab. If you have any questions please call [phone]. With:JAC CHRISTENSEN MD Address: [address] [place] [address] [address] [place] [address]- [phone] When:2022 11:00:00 [facility] 01-06-2022 HCoV 229E RNA ENRIQUE+non-probe Ql (Nph)Not Detected *NA* (11/27/21 12:42 PM) Auto V[employer]Sero [id number] Evaluation + Plan noteExtracted from: Title:Critical care [...] 1 L IV hydration, Rocephin, levofloxacin at [facility]. We will start patient on broad-spectrum antibiotic [...] who reports that the patient went to [place] starting on 11/08 and began to develop [...] levofloxacin and ceftriaxone, which were continued from [facility] ED. Can de-escalate to levofloxacin Order brain natriuretic peptide Empiric dose of IV furosemide 40 mg Repeat Covid test negative We will follow up blood and respiratory culture data GI prophylaxis with famotidine DVT prophylaxis with Lovenox Full code 35 minutes of critical care time Future Appointments Appointment Date:02/12/2022 11:00:00 AM Scheduled Provider:LARY WHEAT DO Location:[facility] Appointment Type:PC OV Diagnostic Tests Pending * Blood Culture (bacterial) 11/22/21 * Blood Culture (bacterial) 11/22/21 [facility] 04-02-2015 History of Past illness Narrative* Problem Noted Date Resolved Date Personal history of colonic polyps 02/21/2015 02/21/2015 documented as of this encounter (statuses as of 03/16/2022) [address]2015 History of Past illness Narrative* Problem Noted Date Resolved Date Personal history of colonic polyps 02/21/2015 02/21/2015 documented as of this encounter (statuses as of 05/01/2022) [address]2015 History of Past illness Narrative* Problem Noted Date Resolved Date Personal history of colonic polyps 02/21/2015 02/21/2015 documented as of this encounter (statuses as of 06/04/2022) [address]2015 History of Past illness Narrative* Problem Noted Date Resolved Date Personal history of colonic polyps 02/21/2015 02/21/2015 documented as of this encounter (statuses as of 06/25/2022) [address]2015 History of Past illness Narrative* Problem Noted Date Resolved Date Personal history of colonic polyps 02/21/2015 02/21/2015 documented as of this encounter (statuses as of 07/02/2022) [address]2015 History of Past illness Narrative* Problem Noted Date Resolved Date Personal history of colonic polyps 02/21/2015 02/21/2015 documented as of this encounter (statuses as of 08/10/2022) [address] History of Past illness Narrative* Problem Noted Date Resolved Date Personal history of colonic polyps 02/21/2015 02/21/2015 documented as of this encounter (statuses as of 10/12/2022) [address]2015 History of Past illness Narrative* Problem Noted Date Resolved Date Personal history of colonic polyps 02/21/2015 02/21/2015 documented as of this encounter (statuses as of 11/05/2022) [address] History of Past illness Narrative* Problem Noted Date Resolved Date Personal history of colonic polyps 02/21/2015 02/21/2015 documented as of this encounter (statuses as of 05/14/2023) [address] History of Past illness Narrative* Problem Noted Date Resolved Date Personal history of colonic polyps 02/21/2015 02/21/2015 documented as of this encounter (statuses as of 05/18/2023) [address]2015 History of Past illness Narrative* Problem Noted Date Diagnosed Date Resolved Date Personal history of colonic polyps 02/21/2015 02/21/2015 documented as of this encounter (statuses as of 07/01/2023) [address] History of Past illness Narrative* Problem Noted Date Diagnosed Date Resolved Date Personal history of colonic polyps 02/21/2015 02/21/2015 documented as of this encounter (statuses as of 07/21/2023) [address] History of Past illness Narrative* Problem Noted Date Diagnosed Date Resolved Date Personal history of colonic polyps 02/21/2015 02/21/2015 documented as of this encounter (statuses as of 09/22/2023) [address] History of Past illness Narrative* Problem Noted Date Diagnosed Date Resolved Date Personal history of colonic polyps 02/21/2015 02/21/2015 documented as of this encounter (statuses as of 09/22/2023) [address] History of Past illness Narrative* Problem Noted Date Diagnosed Date Resolved Date Personal history of colonic polyps 02/21/2015 02/21/2015 documented as of this encounter (statuses as of 10/22/2023) [address] History of Past illness Narrative* Problem Noted Date Diagnosed Date Resolved Date Personal history of colonic polyps 02/21/2015 02/21/2015 documented as of this encounter (statuses as of 10/23/2023) [facility] note Author Talat Cameron [facility] October 01, 2023 2:08pm Note Date/Time October 01, 2023 2:08pm [facility] Medical Records Department [address] [place] [address] Counseling Note - Pharmacy 10/01/231407 MR#: [id number] Acct: [id number] Name: MANSI CARO Rep #:[id number] : 1955 68 From: Talat Cameron PCP: Dr. Adrienne Byers, DO Status:ADM IN Y Location: [place] [address] Pharmacy [place] Med Reconciliation Pharmacy Service has performed discharge medication reconciliation for this patient. The patient's discharge medication list was reviewed for discrepancies and discrepancies were resolved. 10/01/231407 <Electronically signed by Talat knight> Date _ Talat Gallo Signature (if applicable): Date CC: ~ Signed [facility] Work Phone: Consult note Author Carlotta Singletary [facility] October 12, 2023 11:48am Note Date/Time October 12, 2023 11:40am [facility] Medical Records Department [address] [place] [address] Counseling Note - Pharmacy 10/12/23 1139 MR#: [id number] Acct: [id number] Name: MANSI CARO Rep #:[id number] : 1955 68 From: Carlotta Singletary PCP: Dr. Adrienne Byers, DO Status:ADM ANGELIA Y Location: [place] [address] Pharmacy [place] Med Reconciliation Pharmacy Service has performed discharge [...] Signature (if applicable): Date CC: ~ Signed [facility] Work Phone: Consult note Author Talat Cameron [facility] February 29, 2024 11:45am Note Date/Time February 29, 2024 11:4 5am [facility] Medical Records Department [address] [place] [address] Counseling Note - Pharmacy 02/29/24 1145 MR#: [id number] Acct: [id number] Name: MANSI CARO Rep #:[id number] : 1955 69 From: Talat Cameron PCP: Dr. Adrienne Byers, DO Status:ADM IN Y Location: [place] [address] Pharmacy [place] Med Reconciliation Pharmacy Service has performed discharge [...] signed by Talat knight> Date _ Talat Gallo Signature (if applicable): Date CC: ~ Signed [facility] Work Phone: Discharge summary Author Romeo Padron [facility] Note Date/Time April 19, 2025 11:06 am [facility] Medical Records Department [address] [place] [address] Emergency Department Summary 04/19/25 MR#: [id number] Acct: [id number] Name: MANSI CARO Rep #:[id number] : 1955 70 From: Romeo Padron DO PCP: Marci Lopez DO Status:REG E R Location: ED ADDENDUM by Dr. Bossman Sanders DO on 04/19/25 at 1106 Patient care turned over to me awaiting evaluation by social work coordinator for placement to alf facility. Patient was evaluated by social work coordinator and it was recommended that patient be admitted for precertification and admission to alf facility. Will discuss case with hospitalist to [...] infection she was brought in for evaluation [facility] Medical History Ischemic colitis History of left [...] (patent foramen ovale) Cardiac resynchronization therapy defibrillator (SUPER[employer]ERVATIONS-D) in place Myocarditis Hyperlipidemia Hypertension Home Medications [...] 0.125 mg tablet 0.125 mg PO TID NE N dyspepsia #90 03/05/25 Unknown Rx tabs [...] to go home and is agreeable to usp/rehab placement. As it is a weekday and morning hours the patient will be evaluated by physical therapy/Occupational Therapy in the ER and social work will be consulted as well. There is hopes that the patient will be able to be sent directly from the ER to a usp/rehab center. The patient and family were informed [...] 78.3 H Lymph % (Auto) 10.4 L [place] % (Auto) 8.2 Eos % (Auto) 2.5 [...] Clarity Clear Urine pH 6.5 Ur Specific [place] 1.010 Urine Protein 15 H Urine Glucose (UA) 100 H Urine Ketones Negative Urine Occult Blood Negative Urine Nitrite Negative Urine Bilirubin Negative Urine Urobilinogen Normal Ur Leukocyte Esterase Negative Urine RBC 0 SEEN Urine WBC 0 SEEN Ur Squamous Epith Cells 0 SEEN Urine Bacteria 0 SEEN Urine Mucus 0 SEEN Management Discussion w/another healthcare provider: Hospitalist and child day care center worker/Case management Discharge Plan Triage Chief Complaint: [...] DO [Primary Care Provider] - Print Language: Bangladeshi What to do if you have Problems For any increased pain, shortness of breath, bleeding, nausea or vomiting, chestpain, or any unexpected problems, contact your Primary Care Provider. Call [facility] ([phone]) or report to the closest Emergency Room. Call 911 if necessary. 04/19/25 0633 <Electronically signed by Romeo Padron DO> Cosigner Signature (if applicable): CC: Marci Lopez DO ~ Signed [facility] Work Phone: Discharge summary Author Maximo Orosco [facility] Note Date/Time April 20, 2025 2:54p m [facility] Medical Records Department [address] [facility] [place] [address] Transfer to [facility] MR#: [id number] Acct: [id number] Name: MANSI CARO Rep #:[id number] : 1955 70 From: Maximo levin DO PCP: Marci Lopez DO Status:ADM I NO Certification of patient admission REQUIRED AT TIME OF ADMISSION. I CERTIFY THAT POST-HOSPITAL ECF SERVICES ARE REQUIRED TO BE GIVEN ON AN IN-PATIENT BASIS BECAUSE OF THE ABOVE NAMED PATIENT'S NEED FOR CORRECTION CARE ON A CONTINUING BASIS FOR THE CONDITION(S) FOR WHICH HE/SHE WAS RECEIVING IN-PATIENT HOSPITAL SERVICES PRIOR TO HIS/HER TRANSFER TO THE ECF. 04/20/25 1454<Electronically signed by Maximo Orosco DO> [...] is a 70-year-old female who presented to [facility] ED on 04/19/2025 with worsening weakness. Short [...] in before D/C Order can be placed): Penitentiary Facility 04/20/25 6836 <Electronically signed by Maximo Orosco DO> Cosigner Signature (if applicable): CC: Marci Lopez DO ~ [facility] Work Phone: Discharge summary Author Maximo [facility] Note Date/Time April 20, 2025 2:55p m [facility] Medical Records Department [address] [place] [address] Discharge Summary 04/20/25 1449 MR#: [id number] Acct: [id number] Name: MANSI CARO Rep #:[id number] : 1955 70 From: Maximo levin DO PCP: Marci Lopez DO Status:ADM I NO Location: [place] [id number] Providers Date of Admission: 04/19/25 Date of [...] is a 70-year-old female who presented to [facility] ED on 04/19/2025 with worsening weakness. Short [...] in before D/C Order can be placed): Penitentiary Facility Charges/Coding Visit Charges Inpatient E&M: 53548 Disch Hosp >30min 04/20/25 1455 <Electronically signed by Maximo Orosco DO> Cosigner Signature (if applicable): CC: Dr. Maximo Orosco DO; Marci Lopez DO~ Signed [facility] Work Phone: Evaluation + Plan note Future Appointments Appointment Date:10/08/2021 02:30:00 PM Scheduled Provider: Location:[facility] Appointment Type:MA Mammogram Screening Bilateral w/ Yoav Appointment Date:10/31/2021 02:00:00 PM Scheduled Provider:LARY WHEAT DO Location:[facility] Appointment Type:[facility] Future Scheduled Tests Radiology* MA Mammo Screening Bilateral w/ Yoav 10/08/21 [facility] Evaluation + Plan note Future Appointments Appointment Date:10/31/2021 02:00:00 PM Scheduled Provider:LARY WHEAT DO Location:[facility] Appointment Type: OV [facility] Evaluation + Plan note Future Appointments Appointment Date:02/12/2022 11:00:00 AM Scheduled Provider:LARY WHEAT DO Location:[facility] Appointment Type: OV [facility] Evaluation + Plan note Future Appointments Appointment Date:2022 11:00:00 AM Scheduled Provider: Location:[facility] Appointment Type:CV OV Appointment Date:02/12/2022 11:00:00 AM Scheduled Provider:LARY WHEAT DO Location:[facility] Appointment Type:PC OV [facility] Evaluation + Plan note Future Appointments Appointment Date:12/30/2021 10:15:00 AM Scheduled Provider:REI ALFONSO Location:[facility] Appointment Type:CV OV Appointment Date:2022 11:00:00 AM Scheduled Provider: Location:[facility] Appointment Type:CV OV Appointment Date:02/12/2022 11:00:00 AM Scheduled Provider:LARY WHEAT DO Location:[facility] Appointment Type:PC OV Future Scheduled Tests Laboratory* Complete Blood Count 12/09/21 * Complete Metabolic Panel 12/09/21 [facility] Evaluation + Plan note Future Appointments Appointment Date:2022 11:00:00 AM Scheduled Provider: Location:[facility] Appointment Type:CV OV Appointment Date:02/12/2022 11:00:00 AM Scheduled Provider:LARY WHEAT DO Location:[facility] Appointment Type:PC OV Appointment Date:02/17/2022 03:45:00 PM Scheduled Provider: Location:[facility] Appointment Type:CV OV Appointment Date:03/30/2022 02:00:00 PM Scheduled Provider: Location:[facility] Appointment Type:CV Procedure - Echo (Adult) Future Scheduled Tests Laboratory* Complete Blood Count 12/09/21 * Complete Metabolic Panel 12/09/21 [facility] Evaluation + Plan note Future Appointments Appointment Date:02/12/2022 11:00:00 AM Scheduled Provider:LARY WHEAT DO Location:[facility] Appointment Type:PC OV Appointment Date:02/17/2022 03:45:00 PM Scheduled Provider: Location:[facility] Appointment Type:CV OV Appointment Date:03/30/2022 02:00:00 PM Scheduled Provider: Location:[facility] Appointment Type:CV Procedure - Echo (Adult) [facility] Evaluation + Plan note Future Appointments Appointment Date:03/20/2022 08:45:00 AM Scheduled Provider: Location:[facility] Appointment Type:CV OV Appointment Date:03/30/2022 02:00:00 PM Scheduled Provider: Location:[facility] Appointment Type:CV Procedure - Echo (Adult) Appointment Date:05/15/2022 08:00:00 AM Scheduled Provider:LARY WHEAT DO Location:[facility] Appointment Type:PC OV Future Scheduled Tests Laboratory* Basic Metabolic Panel 03/10/22 * A1C Hemoglobin 05/15/22 * Lipid Profile 03/10/22 * Vitamin D Level 05/15/22 * Complete Metabolic Panel 05/15/22 * N-Terminal proBNP 03/10/22 [facility] Evaluation + Plan note Future Appointments Appointment Date:03/09/2022 03:45:00 PM Scheduled Provider: Location:[facility] [place] Appointment Type:CV OV Appointment Date:03/20/2022 08:45:00 AM Scheduled Provider: Location:[facility] Appointment Type:CV OV Appointment Date:03/30/2022 02:00:00 PM Scheduled Provider: Location:[facility] Appointment Type:CV Procedure - Echo (Adult) Appointment Date:05/15/2022 08:00:00 AM Scheduled Provider:LARY WHEAT DO Location:[facility] Appointment Type:PC OV Future Scheduled Tests Laboratory* Basic Metabolic Panel 03/10/22 * A1C Hemoglobin 05/15/22 * Lipid Profile 03/10/22 * Vitamin D Level 05/15/22 * Complete Metabolic Panel 05/15/22 * N-Terminal proBNP 03/10/22 [facility] Evaluation + Plan note Future Appointments Appointment Date:03/09/2022 03:45:00 PM Scheduled Provider: Location:[facility] [place] Appointment Type:CV OV Appointment Date:03/20/2022 08:45:00 AM Scheduled Provider: Location:[facility] Appointment Type:CV OV Appointment Date:03/30/2022 02:00:00 PM Scheduled Provider: Location:[facility] Appointment Type:CV Procedure - Echo (Adult) Appointment Date:05/15/2022 08:00:00 AM Scheduled Provider:LARY WHEAT DO Location:[facility] Appointment Type:PC OV Future Scheduled Tests Laboratory* A1C Hemoglobin 05/15/22 * Vitamin D Level 05/15/22 * Complete Metabolic Panel 05/15/22 [facility] Evaluation + Plan note Future Appointments Appointment Date:03/20/2022 08:45:00 AM Scheduled Provider: Location:[facility] Appointment Type:CV OV Appointment Date:03/30/2022 02:00:00 PM Scheduled Provider: Location:[facility] Appointment Type:CV Procedure - Echo (Adult) Appointment Date:05/15/2022 08:00:00 AM Scheduled Provider:LARY WHEAT DO Location:[facility] Appointment Type:PC OV Future Scheduled Tests Laboratory* A1C Hemoglobin 05/15/22 * Vitamin D Level 05/15/22 * Complete Metabolic Panel 05/15/22 [facility] Evaluation + Plan note Future Appointments Appointment Date:03/30/2022 02:00:00 PM Scheduled Provider: Location:[facility] Appointment Type:CV Procedure - Echo (Adult) Appointment Date:05/01/2022 08:45:00 AM Scheduled Provider: Location:[facility] Appointment Type:CV OV Appointment Date:05/15/2022 08:00:00 AM Scheduled Provider:LARY WHEAT DO Location:[facility] Appointment Type:PC OV Diagnostic Tests Pending * Ferritin 03/20/22 * Transferrin 03/20/22 Future Scheduled Tests Laboratory* A1C Hemoglobin 05/15/22 * Cortisol Drawn in AM 03/20/22 * Vitamin D Level 05/15/22 * Complete Metabolic Panel 05/15/22 * N-Terminal proBNP 04/10/22 Radiology* MRI Cardiac Morph W+W/O Cont Flow/Veloc 03/20/22 [facility] Evaluation + Plan note Future Appointments Appointment Date:03/30/2022 02:00:00 PM Scheduled Provider: Location:[facility] Appointment Type:CV Procedure - Echo (Adult) Appointment Date:04/21/2022 04:30:00 PM Scheduled Provider: Location:[facility] Appointment Type:MRI Cardiac Morph W+W/O Cont Flow/Veloc Appointment Date:05/01/2022 08:45:00 AM Scheduled Provider: Location:[facility] Appointment Type:CV OV Appointment Date:05/15/2022 08:00:00 AM Scheduled Provider:LARY WHEAT DO Location:[facility] Appointment Type:PC OV Future Scheduled Tests Laboratory* A1C Hemoglobin 05/15/22 * Vitamin D Level 05/15/22 * Complete Metabolic Panel 05/15/22 * N-Terminal proBNP 04/10/22 Radiology* MRI Cardiac Morph W+W/O Cont Flow/Veloc 04/21/22 [facility] Evaluation + Plan note Future Appointments Appointment Date:04/03/2022 03:00:00 PM Scheduled Provider: Location:[facility] Appointment Type:INF Infusion: Venofer (1 Hour) Appointment Date:04/21/2022 04:30:00 PM Scheduled Provider: Location:[facility] Appointment Type:MRI Cardiac Morph W+W/O Cont Flow/Veloc Appointment Date:05/01/2022 08:45:00 AM Scheduled Provider: Location:[facility] Appointment Type:CV OV Appointment Date:05/15/2022 08:00:00 AM Scheduled Provider:LARY WHEAT DO Location:[facility] [place] Appointment Type:PC OV Future Scheduled Tests Laboratory* A1C Hemoglobin 05/15/22 * Vitamin D Level 05/15/22 * Complete Metabolic Panel 05/15/22 * N-Terminal proBNP 04/10/22 Radiology* MRI Cardiac Morph W+W/O Cont Flow/Veloc 04/21/22 [facility] Evaluation + Plan note Future Appointments Appointment Date:04/21/2022 04:30:00 PM Scheduled Provider: Location:XRAY Appointment Type:MRI Cardiac Morph W+W/O Cont Flow/Veloc Appointment Date:05/01/2022 08:45:00 AM Scheduled Provider: [facility] Appointment Type:CV OV Appointment Date:05/15/2022 08:00:00 AM Scheduled Provider:LARY WHEAT DO Location:[facility] [place] Appointment Type:PC OV Future Scheduled Tests Laboratory* A1C Hemoglobin 05/15/22 * Vitamin D Level 05/15/22 * Complete Metabolic Panel 05/15/22 * N-Terminal proBNP 04/10/22 Radiology* MRI Cardiac Morph W+W/O Cont Flow/Veloc 04/21/22 [facility] Evaluation + Plan note Future Appointments Appointment Date:05/01/2022 08:45:00 AM Scheduled Provider: Location:[facility] [place] Appointment Type:CV OV Appointment Date:05/15/2022 08:00:00 AM Scheduled Provider:LARY WHEAT DO Location:[facility] [place] Appointment Type:PC OV Future Scheduled Tests Laboratory* A1C Hemoglobin 05/15/22 * Vitamin D Level 05/15/22 * Complete Metabolic Panel 05/15/22 [facility] Evaluation + Plan note Future Appointments Appointment Date:05/08/2022 12:45:00 PM Scheduled Provider: Location:[facility] Appointment Type:CV CLERK TYPIST Appointment Date:05/15/2022 08:00:00 AM Scheduled Provider:LARY WHEAT DO Location:[facility] [place] Appointment Type:PC OV Appointment Date:06/09/2022 11:30:00 AM Scheduled Provider: Location:[facility] Appointment Type:CV OV Appointment Date:06/17/2022 02:30:00 PM Scheduled Provider: Location:[facility] Appointment Type:CV CLERK TYPIST Future Scheduled Tests Laboratory* A1C Hemoglobin 05/15/22 * Vitamin D Level 05/15/22 * Complete Metabolic Panel 05/15/22 * N-Terminal proBNP 08/01/22 [facility] evaluation + Plan note Future Appointments Appointment Date:05/29/2022 03:00:00 PM Scheduled Provider: Location:[facility] Appointment Type:CV OV Incision Check Appointment Date:06/09/2022 11:30:00 AM Scheduled Provider: [facility] Appointment Type:CV OV Appointment Date:06/09/2022 01:30:00 PM Scheduled Provider:LARY WHEAT DO Location:[facility] [place] Appointment Type:PC OV Appointment Date:06/17/2022 02:30:00 PM Scheduled Provider: Location:[facility] Appointment Type:CV CLERK TYPIST Appointment Date:09/01/2022 03:30:00 PM Scheduled Provider: Location:[facility] Appointment Type:CV Office Procedure ICD Appointment Date:12/01/2022 08:00:00 AM Scheduled Provider: Location:[facility] Appointment Type:CV Remote Procedure HM Diagnostic Tests Pending * Urine Culture 05/22/22 Future Scheduled Tests Laboratory* A1C Hemoglobin 05/15/22 * Vitamin D Level 05/15/22 * Complete Metabolic Panel 05/15/22 * N-Terminal proBNP 08/01/22 [facility] Evaluation + Plan note Future Appointments Appointment Date:06/09/2022 11:30:00 AM Scheduled Provider: Location:[facility] Appointment Type:CV OV Appointment Date:06/09/2022 01:30:00 PM Scheduled Provider:LARY WHEAT DO Location:[facility] [place] Appointment Type:PC OV Appointment Date:09/01/2022 03:30:00 PM Scheduled Provider: Location:[facility] Appointment Type:CV Office Procedure ICD Appointment Date:12/01/2022 08:00:00 AM Scheduled Provider: Location:[facility] Appointment Type:CV Remote Procedure HM Future Scheduled Tests Laboratory* Basic Metabolic Panel 06/01/22 * N-Terminal proBNP 06/01/22 * N-Terminal proBNP 08/01/22 [facility] Evaluation + Plan note Future Appointments Appointment Date:09/01/2022 03:30:00 PM Scheduled Provider: Location:[facility] Appointment Type:CV Office Procedure ICD Appointment Date:09/08/2022 02:00:00 PM Scheduled Provider:LARY WHEAT DO Location:[facility] [place] Appointment Type:PC OV Appointment Date:12/01/2022 08:00:00 AM Scheduled Provider: Location:[facility] Appointment Type:CV Remote Procedure HM Future Scheduled Tests Laboratory* Lipid Profile 12/10/22 * N-Terminal proBNP 08/01/22 * N-Terminal proBNP 09/09/22 * N-Terminal proBNP 12/10/22 [facility] Evaluation + Plan note Future Appointments Appointment Date:07/23/2022 03:00:00 PM Scheduled Provider:LARY WHEAT DO Location:[facility] [place] Appointment Type:PC OV Appointment Date:09/01/2022 03:30:00 PM Scheduled Provider: Location:[facility] Appointment Type:CV Office Procedure ICD Appointment Date:09/08/2022 02:00:00 PM Scheduled Provider:LARY WHEAT DO Location:[facility] [place] Appointment Type:PC OV Appointment Date:12/01/2022 08:00:00 [...] N-Terminal proBNP 09/09/22 * N-Terminal proBNP 12/10/22 [facility] Evaluation + Plan note Future Appointments Appointment Date:07/23/2022 03:00:00 PM Scheduled Provider:LARY WHEAT DO Location:[facility] Appointment Type:PC OV Appointment Date:09/01/2022 03:30:00 PM Scheduled Provider: Location:[facility] Appointment Type:CV Office Procedure ICD Appointment Date:09/08/2022 02:00:00 PM Scheduled Provider:LARY WHEAT DO Location:[facility] Appointment Type:PC OV Appointment Date:12/01/2022 08:00:00 [...] N-Terminal proBNP 09/09/22 * N-Terminal proBNP 12/10/22 [facility] Evaluation + Plan note Future Appointments Appointment Date:09/01/2022 03:30:00 PM Scheduled Provider: Location:[facility] Appointment Type:CV Office Procedure ICD Appointment Date:09/08/2022 02:00:00 PM Scheduled Provider:LARY WHEAT DO Location:[facility] [place] Appointment Type:PC OV Appointment Date:12/01/2022 08:00:00 [...] N-Terminal proBNP 09/09/22 * N-Terminal proBNP 12/10/22 [facility] Evaluation + Plan note Future Appointments Appointment Date:12/01/2022 08:00:00 AM Scheduled Provider: Location:[facility] Appointment Type:CV Remote Procedure HM Appointment Date:12/08/2022 02:45:00 PM Scheduled Provider:LARY WHEAT DO Location:[facility] [place] Appointment Type:PC OV Future Scheduled Tests [...] 12/10/22 Radiology* CT Thorax w/o Contrast 09/08/22 [facility] Evaluation + Plan note Future Appointments Appointment Date:12/01/2022 08:00:00 AM Scheduled Provider: Location:[facility] Appointment Type:CV Remote Procedure Appointment Date:12/08/2022 02:45:00 PM Scheduled Provider:LARY WHEAT DO Location:[facility] [place] Appointment Type:PC OV Future Scheduled Tests [...] N-Terminal proBNP 12/09/22 * N-Terminal proBNP 12/10/22 [facility] Evaluation + Plan note Future Appointments Appointment Date:12/01/2022 08:00:00 AM Scheduled Provider: Location:[facility] Appointment Type:CV Remote Procedure HM Appointment Date:12/08/2022 02:45:00 PM Scheduled Provider:LARY WHEAT DO Location:[facility] [place] Appointment Type:PC OV Future Scheduled Tests [...] N-Terminal proBNP 01/28/23 * N-Terminal proBNP 12/10/22 [facility] Evaluation + Plan note Future Appointments Appointment Date:11/30/2022 03:30:00 PM Scheduled Provider:ADRIENNE BYERS DO Location:[facility] Appointment Type:PC OV Appointment Date:12/01/2022 08:00:00 AM Scheduled Provider: Location:[facility] Appointment Type:CV Remote Procedure HM Appointment Date:12/08/2022 02:45:00 PM Scheduled Provider:LARY WHEAT DO Location:[facility] [place] Appointment Type:PC OV Diagnostic Tests Pending [...] N-Terminal proBNP 01/28/23 * N-Terminal proBNP 12/10/22 [facility] Evaluation + Plan note Future Appointments Appointment Date:12/08/2022 03:00:00 PM Scheduled Provider:LARY WHEAT DO Location:[facility] [place] Appointment Type:PC OV Appointment Date:03/12/2023 11:45:00 [...] N-Terminal proBNP 01/28/23 * N-Terminal proBNP 12/10/22 [facility] Evaluation + Plan note Future Appointments Appointment Date:03/12/2023 11:45:00 AM Scheduled Provider: Location:[facility] Appointment Type:CV Remote Procedure HM Appointment Date:03/23/2023 02:30:00 PM Scheduled Provider:LARY WHEAT DO Location:[facility] [place] Appointment Type:PC OV Future Scheduled Tests [...] N-Terminal proBNP 12/09/22 * N-Terminal proBNP 01/28/23 [facility] Evaluation + Plan note Future Appointments Appointment Date:03/12/2023 11:45:00 AM Scheduled Provider: Location:[facility] Appointment Type:CV Remote Procedure Appointment Date:03/24/2023 02:30:00 PM Scheduled Provider:ADRIENNE BYERS [...] N-Terminal proBNP 12/09/22 * N-Terminal proBNP 01/28/23 [facility] Evaluation + Plan note Future Appointments Appointment Date:05/18/2023 10:00:00 AM Scheduled Provider: Location:[facility] Appointment Type:CV OV Appointment Date:06/29/2023 09:45:00 AM Scheduled Provider: Location:[facility] Appointment Type:CV Remote Procedure HM Appointment Date:07/29/2023 02:45:00 PM Scheduled Provider:ADRIENNE BYERS DO Location:[facility] Appointment Type:PC Wellness Annual Future Scheduled [...] N-Terminal proBNP 12/09/22 * N-Terminal proBNP 01/28/23 [facility] Evaluation + Plan note Future Appointments Appointment Date:06/29/2023 09:45:00 AM Scheduled Provider: Location:[facility] Appointment Type:CV Remote Procedure Appointment Date:07/29/2023 02:45:00 PM Scheduled Provider:ADRIENNE BYERS DO Location:[facility] Appointment Type:PC Wellness Annual Future Scheduled [...] 01/28/23 Radiology* CT Thorax w/o Contrast 11/24/23 [facility] Evaluation + Plan note Future [...] 01/28/23 Radiology* CT Thorax w/o Contrast 11/24/23 [facility] Evaluation + Plan note Future [...] 01/28/23 Radiology* CT Thorax w/o Contrast 11/24/23 [facility] Evaluation + Plan note Future [...] 01/28/23 Radiology* CT Thorax w/o Contrast 11/24/23 [facility] Evaluation + Plan note Future [...] 01/28/23 Radiology* CT Thorax w/o Contrast 11/24/23 [facility] Evaluation + Plan note Future Appointments Appointment Date:10/28/2023 01:00:00 PM Scheduled Provider: Location:[facility] Appointment Type:OT Outpatient Evaluation Appointment Date:10/29/2023 11:30:00 AM Scheduled Provider:ADRIENNE BYERS DO Location:[facility] Appointment Type:PC OV TCM 30 Appointment Date:11/02/2023 10:45:00 AM Scheduled Provider: Location:[facility] Appointment Type:CV OV Appointment Date:11/10/2023 10:30:00 [...] 01/28/23 Radiology* CT Thorax w/o Contrast 11/24/23 [facility] Evaluation + Plan note Future Appointments Appointment Date:12/30/2023 01:30:00 PM Scheduled Provider: Location:[facility] Appointment Type:OT Treatment Appointment Date:01/03/2024 01:30:00 PM Scheduled Provider: Location:[facility] Appointment Type:OT Treatment Appointment Date:02/21/2024 02:30:00 PM Scheduled Provider:ADRIENNE BYERS DO Location:[facility] Appointment Type:PC OV Appointment Date:03/03/2024 02:45:00 [...] 01/28/23 Radiology* CT Thorax w/o Contrast 11/24/23 [facility] Evaluation + Plan note Future Appointments Appointment Date:02/21/2024 02:30:00 PM Scheduled Provider:ADRIENNE BYERS DO [facility] Appointment Type:PC OV Appointment Date:03/03/2024 02:45:00 [...] 01/28/23 Radiology* CT Thorax w/o Contrast 11/24/23 [facility] Evaluation + Plan note Future Appointments Appointment Date:06/06/2024 08:30:00 AM Scheduled Provider: Location:[facility] Appointment Type:CV OV Appointment Date:06/16/2024 10:00:00 AM Scheduled Provider: Location:[facility] Appointment Type:CV Remote Procedure HM Appointment Date:06/23/2024 01:30:00 PM Scheduled Provider:ADRIENNE BYERS DO [facility] Appointment Type:PC OV Future Scheduled Tests Laboratory* Basic Metabolic Panel 06/11/23 * Urinalysis 04/29/23 * Lipid Profile 05/03/24 * Albumin/Creatinine Ratio, Random Urine 04/29/23 * Albumin/Creatinine Ratio, Random Urine 02/25/24 * N-Terminal proBNP 05/03/24 Radiology* CT Thorax w/o Contrast 11/24/23 [facility] Evaluation + Plan note Future Appointments Appointment Date:06/06/2024 08:30:00 AM Scheduled Provider: Location:[facility] Appointment Type:CV OV Appointment Date:06/16/2024 10:00:00 AM Scheduled Provider: Location:[facility] Appointment Type:CV Remote Procedure HM Appointment Date:06/23/2024 01:30:00 PM Scheduled Provider:ADRIENNE BYERS DO Location:[facility] Appointment Type:PC OV Appointment Date:12/07/2024 03:00:00 PM Scheduled Provider:ADRIENNE BYERS DO Location:[facility] Appointment Type:PC Wellness Medicare Future Scheduled Tests Laboratory* Basic Metabolic Panel 06/11/23 * Albumin/Creatinine Ratio, Random Urine 02/25/24 Radiology* CT Thorax w/o Contrast 11/24/23 [facility] Evaluation note* Diagnosis Tremor of left hand- Primary [facility] Diagnosis Parkinsonism, unspecified Parkinsonism type (HCC)- Primary Tremor of left hand [facility]* 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 Parkinson disease (HCC) Paralysis agitans Nocturnal muscle cramp Cramp of limb [facility]* Diagnosis Tremor of left hand [facility]* Diagnosis History of stroke- Primary Transient ischemic attack (TIA), and cerebral infarction without residual deficits Spasticity Abnormal involuntary movements Spastic hemiparesis (HCC) Spastic hemiplegia affecting unspecified side [facility]* 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 Parkinsonism, unspecified Parkinsonism type (HCC) [facility] noteNo assessment information availableWOhio[facility] Work Phone: Evalueaqsl note* Diagnosis Onset Date Resolution Status Cerebrovascular disease acut e CVA (cerebral vascular accident) acute AV node dysfunction acute Ischemic cardiomyopathy acut e Presence of biventricular im plantable cardioverter-defibrillator acute [facility] Work Phone: Evaluation note* Diagnosis Onset Date Resolution Status Cerebrovascular disease acut e CVA (cerebral vascular accident) acute AV node dysfunction acute Ischemic cardiomyopathy acut e Presence of biventricular im plantable cardioverter-defibrillator acute Anxiety acute CVA (cerebral vascular accident) acute Debility acute Depression acute Diabetes mellitus acute GERD (gastroesophageal reflux disease) acute Muscle spasm acute Overactive bladder acute Transient ischemic attack ac lilli Vitamin D deficiency acute HLD (hyperlipidemia) chronic HTN (hypertension) chronic CVA (cerebral vascular accident) acute [facility] Work Phone: Evaluation note* Diagnosis Onset Date Resolution Status Cerebrovascular disease acut e AV node dysfunction acute Ischemic cardiomyopathy acut e Presence of biventricular im plantable cardioverter-defibrillator acute Anxiety acute Debility acute Depression acute Diabetes mellitus acute GERD (gastroesophageal reflux disease) acute Muscle spasm acute Overactive bladder acute Transient ischemic attack ac lilli Vitamin D deficiency acute HLD (hyperlipidemia) chronic HTN (hypertension) chronic Ischemic cardiomyopathy acut e Transient ischemic attack ac lilli PFO (patent foramen ovale) c [facility] Work Phone: Evaluation note* Diagnosis Essential tremor- Primary Essential and other specified forms of tremor Tremor of left hand [facility] Diagnosis Onset Date Resolution Status Cerebrovascular [...] acut e PFO (patent foramen ovale) c [facility] Work Phone: Evaluation note* Diagnosis Onset Date Resolution Status Colitis acute Gastrointestinal bleeding, lower acute [facility] Work Phone: Evaluation note* Diagnosis Onset [...] vascular accident) resolved Gastrointestinal bleeding, lower resolved [facility] Work Phone: Evaluation note* Diagnosis History of stroke- Primary Transient ischemic attack (TIA), and cerebral infarction without residual deficits Spasticity Abnormal involuntary movements [facility] Diagnosis Other const[facility] Diagnosis Other constipation- Primary Other const[facility] Diagnosis Dizziness and giddiness [facility]* Diagnosis Other forms of dyspnea [facility] Diagnosis Other forms of dyspnea- Primary [facility] Diagnosis Dizziness and giddiness- Primary Dizziness and giddiness [facility]* Diagnosis Tardive dyskinesia- Primary Subacute dyskinesia due to drugs [facility] Diagnosis Essential tremor- Primary Essential and other specified forms of tremor Dyskinesia, tardive Subacute dyskinesia due to drugs [facility]* Diagnosis Presence of cardiac pacemaker Cardiac pacemaker in situ [facility] Diagnosis Essential tremor Essential and other specified forms of tremor Dyskinesia, tardive Subacute dyskinesia due to drugs [facility]* Diagnosis Tardive dyskinesia- Primary Subacute dyskinesia due to drugs [facility]* Diagnosis Chronic systolic (congestive) heart failure (HCC) [facility] Author Jaci Greco [facility] October 07, 2023 2:38pm Note Date/Time October 07, 2023 1:59pm [facility] Medical Records Department [address] [place] [address] H&P Exam - Hospitalist 10/07/23 1355 MR#: [id number] Acct: [id number] Name: GORDOMANSIVENTURA HILARIO Rep #:[id number] : 1955 68 From: [...] and Plavix who now re-presents to the [facility] ED on 10/07/23 with history of [...] patient administered baclofen 10 mg p.o. x1. PFSH Medical History (Updated 10/07/23 @ 14:[address] Jaci Greco MD) Anxiety and depression AV node dysfunction Cardiac resynchronization therapy defibrillator ([employer]-D) in place Cerebral palsy Coronary artery disease [...] (Auto) 41.7 L, Lymph % (Auto) 47.6 H,[place] % (Auto) 9.0, Eos % (Auto) 0.9, [...] and Plavix who now re-presents to the [facility] ED on 10/07/23 with history of [...] 16 minutes. Charges/Coding Visit Charges Inpatient E&M: 77936 Init Hosp L3 Procedures Hospitalists Procedures: 18930 Advncd Care Plan 30 Min 10/07/23 1438 <Electronically signed by Jaci Greco MD> Cosigner Signature (if applicable): CC: Dr. Jaci Greco MD; Dr. Adrienne Byers DO~ Signed [facility] Work Phone: History and physical note Author Ben Johnson [facility] February 21, 2024 9:35pm Note Date/Time February 21, 2024 9:35 pm [facility] Medical Records Department [address] [place] [address] H&P Exam - Hospitalist 02/21/242124 MR#: [id number] Acct: [id number] Name: MANSI CARO Rep #:[id number] : 1955 69 From: Ben Johnson DO PCP: Dr. Adrienne Byers, DO Status:ADM IN Location: [facility] [id number] HPI - General General Date of Admission: 02/21/24 Date of Service: 02/21/24 Chief Complaint: Abdominal pain, bright red blood in stool HPI Narrative MANSI CARO, is a 69 F who presents to the emergency room at [facility] for evaluation of right red rectal bleeding [...] neoplastic component. [facility], she will be placed on IV antibiotics, shewill be seen by gastroenterology, she may need endoscopic procedures. Labs willbe monitored. [facility] Medical History Anxiety and depression AV node dysfunction Cardiac resynchronization therapy defibrillator ([employer]-D) in place Cerebral palsy Congestive heart failure [...] (Auto) 88.4 H, Lymph % (Auto) 5.3L, [place] % (Auto) 5.5, Eos % (Auto) 0.0, [...] Clarity Clear, Urine pH 5.0, Ur Specific [place] 1.015, Urine Protein 15 H, Urine Glucose [...] 18:54 EDT Reading Location ID and State: [facility] / [place] Tel , Service support , Assessment & Plan Assessment/Plan (1) Gastrointestinal bleeding, lower: PLAN: Plan 1. Colitis-etiology unclear, patient will [facility], she was placed on IV antibiotics [...] able to exclude underlying solid neoplastic component. [facility]. Total clinical time spent by myself addressing the patient's medical issues, reviewing all of her data, and collaborating with patient's care team: 75 minutes Charges/Coding Visit Charges Inpatient E&M: 24645 Init Hosp L3 02/21/242134 <Electronically signed by Ben Johnson DO> Cosigner Signature (if applicable): CC: Dr. Ben Johnson, DO; Dr. Adrienne Byers, DO~ Signed [facility] Work Phone: Hospital course Narrative No data available for this section [facility] Hospital Discharge instructions No data available for this section [facility] Hospital Discharge instructions Additional Instructions Follow-up at your PCP appointment on Wednesday and return for any worsening of your symptoms. Stay well-hydrated, you can take either MiraLAX or Dulcolax for your constipation. [facility] Work Phone: Hospital Discharge instructions Additional Instructions You can take [id number] pain relievers or your oxycodone as needed for breakthrough pain. Follow-up with your primary care doctorW[facility] Work Phone: Hospital Discharge instructionsAdditional Instructions Follow-up your doctor in outpatient setting. Take antibiotics for your urinary tract infection as prescribed use other antibiotics as prescribed as well. Return with worsening symptoms or any concerns. 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, unspecified Parkinsonism type (HCC) Procedures NM BRAIN TREMOR SPECT/CT RP LOCLZJ YASMANI SPECT W/CT 1 AREA 1 DAY IMAGING Sherif Ramirez MD [address] [place] [address] Molecular & Functional Imaging [address] [place] [address] Referral ID Status Reason Start Date Expiration Date Visits Requested Visits Authorized [id number] Authorized Auto-Generat ed Referral 07/01/2023 07/30/2024 1 1 [facility] for visit Narrative* Diagnostic Procedure Only (Routine) - Closed Specialty Diagnoses / Procedures Referred By Oni angel Referred To Contact MOLECULAR & FUNCTIONAL IMAGING 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, unspecified Parkinsonism type Procedures NM BRAIN TREMOR SPECT/CT RP LOCLZJ YASMANI SPECT W/CT 1 AREA 1 DAY IMAGING Sherif Ramirez MD [address] [place] [address] [facility] [address] [place] [address] Referral ID Status Reason Start Date Expiration Date V isits Requested Visits Authorized [id number] Closed Auto-Generate d Referral 07/01/2023 07/30/2024 1 1 [facility] for visit Narrative* Diagnostic Procedure Only (Routine) - Closed Specialty Diagnoses / Procedures Referred By Contac t Referred To Contact Radiology / RADIO CT SCAN Diagnoses Solitary pulmonary nodule CT CHEST W/O CONTRAST R91.1 pulmonary nodule ORDER IN SCANNED DOCS AUTH # [id number] VALID 07.12.24 TO 09.10.24 Procedures DIAGNOSTIC COMPUTED TOMOGRAPHY THORAX W/O CNTRST CT WO CH 400 Martha Pillai V, MD [address] [facility] [address] [place] [address] Scan [facility] [address] [place] [address] Referral ID Status Reason Start Date Expiration Date Visits Re quested Visits Authorized [id number] Closed 07/12/2024 09/10/2024 1 1 [facility] for visit Narrative* Imaging (Routine) - Closed Specialty Diagnoses / Procedures Referred By Contac t Referred To Contact Cardiology Diagnoses Dizziness and giddiness Procedures Vascular US carotid artery duplex bilateral Pina Isidro [address] [place] [address] Phone: tel: fax: Referral ID Status Reason Start Date Expiration Date Visits Re quested Visits Authorized [id number] Closed 11/07/2024 11/07/2025 1 1 [facility] for visit Narrative* (Routine) - Pending Review Specialty Diagnoses / Procedures Referred By Contac t Referred To Contact Diagnoses Other forms of dyspnea Procedures Complete PFT pre and post bronchodilator Marci Lopez [address] [place] [address] Phone: tel: fax: Referral ID Status Reason Start Date Expiration Date V isits Requested Visits Authorized [id number] Pending Review 10/13/2024 10/08/2025 1 1 [facility] for visit Narrative* MRI/CT (Routine) - Authorized Specialty Diagnoses / Procedures Referred By Contac t Referred To Contact Radiology / RADIO CT SCAN Diagnoses Other nonspecific abnormal finding of lung field CT Chest wo contrast DX: R91.8 Auth# [id number] Order scanned into chart on 01/05/2025 Procedures DIAGNOSTIC COMPUTED TOMOGRAPHY THORAX W/O CNTRST CT WO CH 400 Kalen Izaguirre MD [address] [facility] [address] [place] [address] Phone: tel: fax: RADIO CT SCAN [facility] [address] [place] [address] Phone: tel: fax: Referral ID Status Reason Start Date Expiration Date V isits Requested Visits Authorized [id number] Authorized 01/02/2025 03/03/2025 2 2 [facility] for visit Narrative* MRI/CT (Routine) - Closed Specialty Diagnoses / Procedures Referred By Oni t Referred To Contact MR IMAGING Diagnoses Essential tremor Dyskinesia, tardive Procedures MRI BRAIN WO IVCON MRI BRAIN BRAIN STEM W/O CONTRAST MATERIAL Leyla Murphy MD [address] [place] [address] Phone: tel: fax: [place] [address] Referral ID Status Reason Start Date Expiration Date V isits Requested Visits Authorized [id number] Closed Auto-Generate d Referral 03/23/2025 05/22/2025 1 1 [facility] Summary Purpose Family History Relationship Condition [...] Will Yes September 28 8:21pm Power of Utility System Repairer Yes September 28, 2023 8:21pm Name of Medical Power of Utility System Repairer BEATRICE PENA September 28, 2023 8:21pm Advance Directive Response Recorded Date/ Time Name of Medical Power of Utility System Repairer Song Gordillotamikanatalia edilia September 28, 2023 10:25pm Advance Directives Yes May 18 7:27pm Living Will Yes September 28 10:25pm Power of Utility System Repairer Yes September 28, 2023 10:25pm Advance Directive Response Recorded Date/ Time Name of Medical Power of Utility System Repairer Song Gordillojeffery mace September 28, 2023 10:25pm Name of Medical Power of Utility System Repairer jose Naqvi October 04, 2023 1:28pm Name of Medical Power of Utility System Repairer spouse October 07, 2023 1:12pm Advance Directives Yes May 18 7:27pm Living Will Yes October 07, 023 1:12pm Power of Utility System Repairer Yes October 07, 2023 1:12pm Advance Directive Response Recorded Date/ Time Name of Medical Power of Utility System Repairer Song Gordillojeffeyr mcae September 28, 2023 10:25pm Name of Medical Power of Utility System Repairer jose Naqvi October 04, 2023 1:28pm Name of Medical Power of Utility System Repairer spouse October 07, 2023 3:14pm Advance Directives Yes May 18 7:27pm Living Will Yes October 07, 2 023 3:14pm Power of Utility System Repairer Yes October 07, 2023 3:14pm Advance Directive Response Recorded Date/ Time Name of Medical Power of Utility System Repairer Song Gordillotamikanatalia edilia September 28, 2023 10:25pm Name of Medical Power of Utility System Repairer jose Naqvi October 04, 2023 1:28pm Name of Medical Power of Utility System Repairer spouse October 07, 2023 3:14pm Name of Medical Power of Utility System Repairer Song Ramírez December 08, 2023 3:46pm Advance Directives Yes May 18 7:27pm Living Will Yes December 08 3:46pm Power of Utility System Repairer Yes December 08, 2023 3:46pm Advance Directive Response Recorded Date/ Time Name of Medical Power of Utility System Repairer Song Ramírez December 08, 2023 4:46pm Advance Directives Yes May 18 8:27pm Living Will No February 19, 2024 4:09pm Power of Utility System Repairer No February 18 4:09pm Advance Directive Response Recorded Date/ Time Name of Medical Power of Utility System Repairer Song Ramírez December 08, 2023 4:46pm Advance Directives Yes May 18 8:27pm Living Will No February 21, 2024 3:03pm Power of Utility System Repairer No February 20 3:03pm Advance Directive Response Recorded Date/ Time Name of Medical Power of Utility System Repairer Song Ramírez December 08, 2023 4:46pm Name of Medical Power of Utility System Repairer Song mace February 21, 2024 10:15pm Advance Directives Yes May 18 8:27pm Living Will Yes February 21, 2024 10:15pm Power of Utility System Repairer Yes February 20 10:15pm Advance Directive Response Recorded Date/ Time Name of Medical Power of Utility System Repairer Song Ramírez December 08, 2023 4:46pm Name of Medical Power of Utility System Repairer Song mace February 21, 2024 10:15pm Name of Medical Power of Utility System Repairer eris Cuello March 08, 2024 4:39pm Advance Directives Yes May 18 8:27pm Living Will Yes March 08, 2024 4:39pm Power of Utility System Repairer Yes March 08 4:39pm Advance Directive Response Recorded Date/ Time Living Will Yes July 03 7:58pm Do you have a Healthcare Power of Utility System Repairer? Yes July 03, 2024 7:58pm Advance Directives Yes October 2:46pm Living Will Yes September 09 2:39pm Do you have a Healthcare Power of Utility System Repairer? Yes September 09, 2024 2:39pm Living Will No November 18, 3:39pm Do you have a Healthcare Power of Utility System Repairer? No November 18, 2024 3:39pm Living Will No March 10, 2025 11:55am Do you have a Healthcare Power of Utility System Repairer? No March 10, 2025 11:55am Advance Directive Response Recorded Date/ Time Living Will Yes July 03 7:58pm Do you have a Healthcare Power of Utility System Repairer? Yes July 03, 2024 7:58pm Advance Directives Yes October 2:46pm Living Will No March 10, 2025 11:55am Do you have a Healthcare Power of Utility System Repairer? No March 10, 2025 11:55am Advance Directive Response Recorded Date/ Time Living Will Yes July 03 7:58pm Do you have a Healthcare Power of Utility System Repairer? Yes July 03, 2024 7:58pm Living Will No March 10, 2025 11:55am Do you have a Healthcare Power of Utility System Repairer? No March 10, 2025 11:55am Do you have a Healthcare Power of Utility System Repairer? Yes April 19, 2025 3:35am Advance Directives Yes October 2:46pm Advance Directive Response Recorded Date/ Time Living Will Yes July 03 7:58pm Do you have a Healthcare Power of Utility System Repairer? Yes July 03, 2024 7:58pm Living Will No March 10, 2025 11:55am Do you have a Healthcare Power of Utility System Repairer? No March 10, 2025 11:55am Do you have a Healthcare Power of Utility System Repairer? Yes April 19, 2025 1:19pm Advance Directives Yes October 2:46pm Advance Directive Response Recorded Date/ Time Living Will Yes July 03 7:58pm Do you have a Healthcare Pow er of Utility System Repairer? Yes July 03, 2024 7:58pm Do you have a Healthcare Pow er of Utility System Repairer? No April 23, 2025 4:09pm Do you have a Healthcare Pow er of Utility System Repairer? Yes April 24, 2025 3:39pm Name of Medical Power of Utility System Repairer Song mace, April 24, 2025 3:39pm Living Will No March 10, 2025 11:55am Do you have a Healthcare Pow er of Utility System Repairer? No March 10, 2025 11:55am Do you have a Healthcare Pow er of Utility System Repairer? Yes April 19, 2025 1:19pm Advance Directives Yes October 2:46pm Advance Directive Response Recorded Date/ Time Living Will Yes July 03 7:58pm Do you have a Healthcare Pow er of Utility System Repairer? Yes July 03, 2024 7:58pm Do you have a Healthcare Pow er of Utility System Repairer? No April 23, 2025 4:09pm Do you have a Healthcare Pow er of Utility System Repairer? Yes April 24, 2025 3:39pm Name of Medical Power of Utility System Repairer Song mace, April 24, 2025 3:39pm Do you have a Healthcare Pow er of Utility System Repairer? No May 22, 2025 4:39pm Living Will No March 10, 2025 11:55am Do you have a Healthcare Pow er of Utility System Repairer? No March 10, 2025 11:55am Do you have a Healthcare Pow er of Utility System Repairer? Yes April 19, 2025 1:19pm Advance Directives Yes October 2:46pm Advance Directive Response Recorded Date/ Time Do you have a Healthcare Pow er of Utility System Repairer? No April 23, 2025 4:09pm Do you have a Healthcare Pow er of Utility System Repairer? Yes April 24, 2025 3:39pm Name of Medical Power of Utility System Repairer Song mace, April 24, 2025 3:39pm Do you have a Healthcare Pow er of Utility System Repairer? No May 22, 2025 4:39pm Living Will No March 10, 2025 11:55am Do you have a Healthcare Pow er of Utility System Repairer? No March 10, 2025 11:55am Do you have a Healthcare Pow er of Utility System Repairer? Yes April 19, 2025 1:19pm Advance Directives Yes October 2:46pm Reason for Referral Specialty Diagnoses / Procedures Referred By Oni t Referred To Contact Diagnoses Tremor of left hand Essential tremor Procedures PROVIDER ORDERED FOLLOW UP OFFICE/OUTPATIENT [facility] MDM 60-74 MINUTES Sherif Ramirez MD [address] [place] [address] Referral ID Status Reason Start Date Expiration Date Visits Requested Visits Authorized [id number] Pending Review PCP Requested Referral 3 01/18/2024 1 1 Specialty Diagnoses / Procedures Referred By Oni t Referred To Contact [facility] Diagnoses Tremor of left hand Essential tremor Procedures CONSULT TO BASTING MACHINE OPERATOR OCCUPATIONAL THERAPY [facility] COM[facility]X 60 MINS Sherif Ramirez MD [address] [place] [address] [facility] [address] [place] [address] Referral ID Status Reason Start Date Expiration Date Visits Requested Visits Authorized [id number] Pending Review Auto-Generat ed Referral 3 10/19/2024 1 1 Specialty Diagnoses / Procedures Referred By Contac t Referred To Contact Diagnoses Tremor of left hand Procedures PROVIDER ORDERED FOLLOW UP OFFICE/OUTPATIENT [facility] 60-74 MINUTES Sherif Ramirez MD [address] [place] [address] Referral ID Status Reason Start Date Expiration Date Visits Requested Visits Authorized [id number] Authorized PCP Requested Referral 06/23/2022 06/23/2023 1 1 Specialty Diagnoses / Procedures Referred By Contac t Referred To Contact Neurology Diagnoses Tremor of left hand Procedures CONSULT TO NEUROLOGY OFFICE/OUTPATIENT [facility] MDM 60-[place] [address] [place] [id number] Referral ID Status Reason Start Date Expiration Date Visits Requested Visits Authorized [id number] Authorized PCP Requested Referral 06/04/2022 06/04/2023 1 [...] 3:08pm Presence of stent in coronary artery May 3:08pm Chief Complaint Admit Date PELVIC PAIN [...] section and content) DATE CREATED AUTHOR 01/17/2020 [facility] DATE CREATED AUTHOR AUTHOR'S ORGANIZ ATION 04/10/2020 [facility] DATE CREATED AUTHOR AUTHOR'S ORGANIZ ATION 05/21/2024 [facility] ([place]) DATE CREATED AUTHOR AUTHOR'S ORGANIZ ATION 01/25/2025 [facility] nter DATE CREATED AUTHOR AUTHOR'S ORGANIZ ATION 03/03/2025 [facility] DATE CREATED AUTHOR AUTHOR'S ORGANIZ ATION 03/12/2025 [facility] DATE CREATED AUTHOR AUTHOR'S ORGANIZ ATION 04/04/2025 [facility] DATE CREATED AUTHOR AUTHOR'S ORGANIZ ATION 05/24/2025 [facility] DATE CREATED AUTHOR AUTHOR'S ORGANIZ ATION 06/01/2025 [facility] Care Team (unrecognized sect ion and [...] 2024 End: December 22, 2024 Dr. Marci Brie John , DO Attending Provider Activ e Start: [...] 18, 2025 End: January 18, 2025 Kaykay Pena PA, PA Attending Provider Active Start: January 18, 2025 End: January 18, 2025 Team Status: Active Member Role Status Dates Dr. Marci Lopez DO Primary Care Provider Ac tive Start: January 22, 2025 Dr. uLigi Tinoco MD Attending Provider Active Start: January [...] 2025 End: February 13, 2025 Mayte Burch CLERK TYPIST, CLERK TYPIST-C Attending Provider Active Start: February 13, 2025 [...] March 10, 2025 End: March 10, 2025 Inspector Final Assembly Conveyor Line Relationship Specialty Start Date End Date Jesus Manuel Freitas DO [address] [place] [address] PCP - General 02/21/15 Inspector Final Assembly Conveyor Line Relationship Specialty Start Date End Date Jesus Manuel Freitas DO [address] [place] [address] PCP - General 02/21/15 Inspector Final Assembly Conveyor Line Relationship Specialty Start Date End Date Jesus Manuel Freitas DO [address] [place] [address] PCP - General 02/21/15 Inspector Final Assembly Conveyor Line Relationship Specialty Start Date End Date Jesus Manuel Freitas DO [address] [place] [address] PCP - General 02/21/15 Inspector Final Assembly Conveyor Line Relationship Specialty Start Date End Date Jesus Manuel Freitas DO [address] [place] [address] PCP - General 02/21/15 Inspector Final Assembly Conveyor Line Relationship Specialty Start Date End Date Jesus Manuel Freitas DO [address] [place] [address] PCP - General 02/21/15 Kailyn Donald, GEOLOGICAL SAMPLE TESTER.SHEET COMBINING OPERATOR [address] [facility] [address] Specialty Counter Professional Neurology 09/09/22 Inspector Final Assembly Conveyor Line Relationship Specialty Start Date End Date Jesus Manuel Freitas, DO [address] [place] [address] PCP - General 02/21/15 Kailyn Donald, GEOLOGICAL SAMPLE TESTER.SHEET COMBINING OPERATOR [address] [place] [address] Specialty Counter Professional Neurology 09/09/22 Inspector Final Assembly Conveyor Line Relationship Specialty Start Date End Date Jesus Manuel Freitas, DO [address] [place] [address] PCP - General 02/21/15 Kailyn Donald, GEOLOGICAL SAMPLE TESTER.SHEET COMBINING OPERATOR [address] [place] [address] Specialty Counter Professional Neurology 09/09/22 Gissell Hunt, GEOLOGICAL SAMPLE TESTER.SHEET COMBINING OPERATOR [address] [place] [address] Specialty Counter Professional Neurology 12/07/22 Inspector Final Assembly Conveyor Line Relationship Specialty Start Date End Date Jesus Manuel Freitas, DO [address] [place] [address] PCP - General 02/21/15 Kailyn Donald, GEOLOGICAL SAMPLE TESTER.SHEET COMBINING OPERATOR [address] [place] [address] Specialty Counter Professional Neurology 09/09/22 Gissell uHnt, GEOLOGICAL SAMPLE TESTER.SHEET COMBINING OPERATOR [address] [place] [address] Specialty Counter Professional Neurology 12/07/22 Inspector Final Assembly Conveyor Line Relationship Specialty Start Date End Date Jesus Manuel Freitas DO [address] [place] [address] PCP - General 02/21/15 Kailyn Donald, GEOLOGICAL SAMPLE TESTER.SHEET COMBINING OPERATOR [address] [place] [address] Specialty Counter Professional Neurology 09/09/22 Gissell Hunt, GEOLOGICAL SAMPLE TESTER.SHEET COMBINING OPERATOR [address] [place] [address] Specialty Counter Professional Neurology 12/07/22 Inspector Final Assembly Conveyor Line Relationship Specialty Start Date End Date Jesus Manuel Freitas DO [address] [place] [address] PCP - General 02/21/15 Kailyn Donald, GEOLOGICAL SAMPLE TESTER.SHEET COMBINING OPERATOR [address] [place] [address] Specialty Counter Professional Neurology 09/09/22 Gissell Hunt, GEOLOGICAL SAMPLE TESTER.SHEET COMBINING OPERATOR [address] [place] [address] Specialty Counter Professional Neurology 12/07/22 Inspector Final Assembly Conveyor Line Relationship Specialty Start Date End Date Jesus Manuel Freitas DO [address] [place] [address] PCP - General 02/21/15 Kailyn Donald, GEOLOGICAL SAMPLE TESTER.SHEET COMBINING OPERATOR [address] [place] [address] Specialty Counter Professional Neurology 09/09/22 Gissell Hunt, GEOLOGICAL SAMPLE TESTER.SHEET COMBINING OPERATOR [address] [place] [address] Specialty Counter Professional Neurology 12/07/22 Inspector Final Assembly Conveyor Line Relationship Specialty Start Date End Date Jesus Manuel Freitas, DO [address] [place] [address] PCP - General 02/21/15 Kailyn Donald, GEOLOGICAL SAMPLE TESTER.SHEET COMBINING OPERATOR [address] [place] [address] Specialty Counter Professional Neurology 09/09/22 Gissell Hunt, GEOLOGICAL SAMPLE TESTER.SHEET COMBINING OPERATOR [address] [place], [place] [address] Specialty Counter Professional Neurology 12/07/22 Inspector Final Assembly Conveyor Line Relationship Specialty Start Date End Date Jesus Manuel Freitas, DO [address] [place] [address] PCP - General 02/21/15 Kailyn Donald, GEOLOGICAL SAMPLE TESTER.SHEET COMBINING OPERATOR [address] [place] [address] Specialty Counter Professional Neurology 09/09/22 Gissell Hunt, GEOLOGICAL SAMPLE TESTER.SHEET COMBINING OPERATOR [address] [place], [place] [address] Specialty Counter Professional Neurology 12/07/22 Team Status: Active Member Role Status Dates Dr. Cathy Cherry , DO Family Provider Active Dr. Adrienne Byers , DO Primary Care Provider Active Team Status: Active Member Role Status Dates Dr. Uday Orosco , DO Emergency Provider Active Dr. Adrienne Byers , DO Primary Care Provider Active Dr. Tony Corona , DO Admit Provider, Attending Pr ivett Active Team Status: Active Member Role Status [...] Dr. Tony Mayer MD Other Provider Active Inspector Final Assembly Conveyor Line Relationship Specialty Start Date End Date Jesus Manuel Freitas, DO [address] [place] [address] PCP - General 02/21/15 Kailyn Donald, GEOLOGICAL SAMPLE TESTER.SHEET COMBINING OPERATOR [address] [place] [address] Specialty Counter Professional Neurology 09/09/22 Gissell Hunt, GEOLOGICAL SAMPLE TESTER.SHEET COMBINING OPERATOR [address] [place], [place] [address] Specialty Counter Professional Neurology 12/07/22 Inspector Final Assembly Conveyor Line Relationship Specialty Start Date End Date Jesus Manuel Freitas, DO [address] [place] [address] PCP - General 02/21/15 Kailyn Donald, GEOLOGICAL SAMPLE TESTER.SHEET COMBINING OPERATOR [address] [place] [address] Specialty Counter Professional Neurology 09/09/22 Gissell Hunt, GEOLOGICAL SAMPLE TESTER.SHEET COMBINING OPERATOR [address] [place] [address] Specialty Counter Professional Neurology 12/07/22 Team Status: Active Member Role [...] Provider, Other Provide r Active Dr. Yoandy Thkakar MD Other Provider Active Dr. Ganesh Kiran MD Other Provider Active Dr. Heike Horta MD Other Provider Active Dr. Shan Lockett , DO Attending Provider Active Team Status: Inactive Member Role Status Dates Dr. Adrienne Byers , DO Primary Care Provider Active Dr. Bryan Levin , DO Attending Provider, Emergency P rovider Active Team Status: Inactive Member Role Status [...] Prov ider Active Dr. Shan Lockett , Attending Provider Active Team Status: Active Member [...] Prov ider Active Dr. Shan Lockett , Attending Provider Active Team Status: Active Member Role Status Dates Dr. Adrienne Byers DO Primary Care Provider Active Dr. Adrienne Christine MD Attending Provider Active Dr. Ben Johnson , Referring Provider Active Team Status: Inactive Member Role Status Dates Dr. Adrienne Byers DO Primary Care Provider Active Dr. Alonso Marte MD Admit Provider, At tending Provider, Referring Provider Active Inspector Final Assembly Conveyor Line Relationship Specialty Start Date End Date Jesus Manuel Freitas DO [address] [place] [address] PCP - General 02/21/15 Kailyn Donald, GEOLOGICAL SAMPLE TESTER.SHEET COMBINING OPERATOR [address] [place] [address] Specialty Counter Professional Neurology 09/09/22 Gissell Hunt GEOLOGICAL SAMPLE TESTER.SHEET COMBINING OPERATOR [address] [place], [place] [id number] Specialty Counter Professional Neurology 12/07/22 Sherif Ramirez MD [address] [place] [address] Specialty Counter Professional Neurology 11/10/23 Inspector Final Assembly Conveyor Line Relationship Specialty Start Date End Date Rick Rodas APRN - SHEET COMBINING OPERATOR [address] [place] [address] PCP - General Nurse Practitioner 06/16/24 Inspector Final Assembly Conveyor Line Relationship Specialty Start Date End Date Rick Rodas APRN - SHEET COMBINING OPERATOR [address] [place] [address] PCP - General Nurse Practitioner 06/16/24 Inspector Final Assembly Conveyor Line Relationship Specialty Start Date End Date Rick Rodas APRN - SHEET COMBINING OPERATOR [address] [place] [address] PCP - General Nurse Practitioner 06/16/24 Inspector Final Assembly Conveyor Line Relationship Specialty Start Date End Date Jesus Manuel Freitas DO [address] [place] [address] PCP - General 02/21/15 Kailyn Donald, GEOLOGICAL SAMPLE TESTER.SHEET COMBINING OPERATOR [address] [place], [place] [id number] Specialty Counter Professional Neurology 09/09/22 Gissell Hunt, GEOLOGICAL SAMPLE TESTER.SHEET COMBINING OPERATOR [address] [place], [place] [id number] Specialty Counter Professional Neurology 12/07/22 Sherif Ramirez MD [address] [place] [address] Specialty Counter Professional Neurology 11/10/23 Inspector Final Assembly Conveyor Line Relationship Specialty Start Date End Date JohnMarci osorio [address] [place] [address] PCP - General Family Medicine 07/20/24 Inspector Final Assembly Conveyor Line Relationship Specialty Start Date End Date Jesus Manuel Freitas DO [address] [place] [address] PCP - General 02/21/15 Kailyn Donald, GEOLOGICAL SAMPLE TESTER.SHEET COMBINING OPERATOR [address] [place] [address] Specialty Counter Professional Neurology 09/09/22 Gissell Hunt, GEOLOGICAL SAMPLE TESTER.SHEET COMBINING OPERATOR [address] [place], [place] [id number] Specialty Counter Professional Neurology 12/07/22 Sherif Ramirez MD [address] [place] [address] Specialty Counter Professional Neurology 11/10/23 Inspector Final Assembly Conveyor Line Relationship Specialty Start Date End Date Rick Rodas 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 [address] [place] [address] PCP - General Nurse Practitioner 06/16/24 07/19/24 Marci Lopez [address] [place] [address] PCP - General Family Medicine 07/20/24 Inspector Final Assembly Conveyor Line Relationship Specialty Start Date End Date Marci Lopez [address] [place] [address] PCP - General Family Medicine 07/20/24 Inspector Final Assembly Conveyor Line Relationship Specialty Start Date End Date Marci Lopez [address] [place] [address] PCP - General Family Medicine 07/20/24 Inspector Final Assembly Conveyor Line Relationship Specialty Start Date End Date Jesus Manuel Freitas DO [address] [place] [address] PCP - General 02/21/15 Kailyn Donald, GEOLOGICAL SAMPLE TESTER.SHEET COMBINING OPERATOR [facility] [place], [place] [id number] Specialty Counter Professional Neurology 09/09/22 Gissell Hunt, GEOLOGICAL SAMPLE TESTER.SHEET COMBINING OPERATOR [facility]0 [place] [address] Specialty Counter Professional Neurology 12/07/22 Sherif Ramirez MD [address] [place], [place] [id number] Specialty Counter Professional Neurology 11/10/23 Inspector Final Assembly Conveyor Line Relationship Specialty Start Date End Date Marci Lopez [address] [place] [address] PCP - General Family Medicine 07/20/24 Inspector Final Assembly Conveyor Line Relationship Specialty Start Date End Date Marci Lopez [address] [place] [address] PCP - General Family Medicine 07/20/24 Inspector Final Assembly Conveyor Line Relationship Specialty Start Date End Date Jesus Manuel Freitas DO [address] [place], [place] [address] PCP - General 02/21/15 Kailyn Donald, GEOLOGICAL SAMPLE TESTER.SHEET COMBINING OPERATOR [address] [place] [address] Specialty Counter Professional Neurology 09/09/22 Gissell Hunt, GEOLOGICAL SAMPLE TESTER.SHEET COMBINING OPERATOR [address] [place] [address] Specialty Counter Professional Neurology 12/07/22 Sherif Ramirez MD [address] [place] [address] Specialty Counter Professional Neurology 11/10/23 Inspector Final Assembly Conveyor Line Relationship Specialty Start Date End Date Jesus Manuel Freitas DO [address] [place], [place] [address] PCP - General 02/21/15 Kailyn Donald, GEOLOGICAL SAMPLE TESTER.SHEET COMBINING OPERATOR [address] [place] [address] Specialty Counter Professional Neurology 09/09/22 Gissell Hunt, GEOLOGICAL SAMPLE TESTER.SHEET COMBINING OPERATOR [address] [place] [address] Specialty Counter Professional Neurology 12/07/22 Sherif Ramirez MD [address] [place] [address] Specialty Counter Professional Neurology 11/10/23 Inspector Final Assembly Conveyor Line Relationship Specialty Start Date End Date John, [place] [address] [place] [id number] PCP - General Family Medicine 07/20/24 Inspector Final Assembly Conveyor Line Relationship Specialty Start Date End Date Jesus Manuel Freitas DO [address] [place], [place] [address] PCP - General 02/21/15 Kailyn Donald, GEOLOGICAL SAMPLE TESTER.SHEET COMBINING OPERATOR [address] [place] [address] Specialty Counter Professional Neurology 09/09/22 Gissell Hunt, GEOLOGICAL SAMPLE TESTER.SHEET COMBINING OPERATOR [address] [place] [address] Specialty Counter Professional Neurology 12/07/22 Sherif Ramirez MD [address] [place] [address] Specialty Counter Professional Neurology 11/10/23 Inspector Final Assembly Conveyor Line Relationship Specialty Start Date End Date Jesus Manuel Freitas DO [address] [place] [address] PCP - General 02/21/15 Kailyn Donald, GEOLOGICAL SAMPLE TESTER.SHEET COMBINING OPERATOR [address] [place] [address] Specialty Counter Professional Neurology 09/09/22 Gissell Hunt GEOLOGICAL SAMPLE TESTER.SHEET COMBINING OPERATOR [address] [place] [address] Specialty Counter Professional Neurology 12/07/22 Sherif Ramirez MD [address] [place] [address] Specialty Counter Professional Neurology 11/10/23 Inspector Final Assembly Conveyor Line Relationship Specialty Start Date End Date Jesus Manuel Freitas DO [address] [place], [place] [id number] PCP - General 02/21/15 Kailyn Donald, GEOLOGICAL SAMPLE TESTER.SHEET COMBINING OPERATOR [address] [place], [place] [id number] Specialty Counter Professional Neurology 09/09/22 Gissell Hunt, GEOLOGICAL SAMPLE TESTER.SHEET COMBINING OPERATOR [address] [place] [address] Specialty Counter Professional Neurology 12/07/22 Sherif Ramirez MD [address] [place] [address] Specialty Counter Professional Neurology 11/10/23 Inspector Final Assembly Conveyor Line Relationship Specialty Start Date End Date Jesus Manuel Freitas DO [address] [place] [address] PCP - General 02/21/15 Kailyn Donald, GEOLOGICAL SAMPLE TESTER.SHEET COMBINING OPERATOR [address] [place] [address] Specialty Counter Professional Neurology 09/09/22 Gissell Hunt, GEOLOGICAL SAMPLE TESTER.SHEET COMBINING OPERATOR [address] [place] [address] Specialty Counter Professional Neurology 12/07/22 Sherif Ramirez MD [address] [place] [address] Specialty Counter Professional Neurology 11/10/23 Inspector Final Assembly Conveyor Line Relationship Specialty Start Date End Date Jesus Manuel Freitas DO [address] [place] [address] PCP - General 02/21/15 Kailyn Donald, GEOLOGICAL SAMPLE TESTER.SHEET COMBINING OPERATOR [address] [place] [address] Specialty Counter Professional Neurology 09/09/22 Gissell Hunt, GEOLOGICAL SAMPLE TESTER.SHEET COMBINING OPERATOR [address] [place] [address] Specialty Counter Professional Neurology 12/07/22 Sherif Ramirez MD [address] [place] [address] Specialty Counter Professional Neurology 11/10/23 Team Status: Active Member Role Status Dates Dr. Marci Lopez , Primary Care Provider Ac tive Start: November 14, 2024 Dr. Marci Lopez DO Attending Provider Activ e Start: November 14, 2024 Dr. Marci Lopez DO Referring Provider Activ e Start: November 14, 2024 Team Status: Inactive Member Role Status Dates Dr. Marci Lopez DO Primary Care Provider Ac tive Start: November 18, 2024 End: November 18, 2024 Dr. Jose Jaime , Attending Provider Active Start: November 18, 2024 End: November 18, 2024 Dr. Jose Jaime , Emergency Provider Active Start: November 18, 2024 [...] March 10, 2025 End: March 10, 2025 Inspector Final Assembly Conveyor Line Relationship Specialty Start Date End Date Jesus Manuel Freitas DO [address] [place] [address] PCP - General 02/21/15 Kailyn Donald, GEOLOGICAL SAMPLE TESTER.SHEET COMBINING OPERATOR [address] [place], [place] [id number] Specialty Counter Professional Neurology 09/09/22 Gissell Hunt APRN.SHEET COMBINING OPERATOR [address] [place] [address] Specialty Counter Professional Neurology 12/07/22 Sherif Ramirez MD [address] [place], [place] [id number] Specialty Counter Professional Neurology 11/10/23 Team Status: Inactive Member Role [...] 2025 End: April 25, 2025 Dr. Marci Lopez DO Referring Provider Activ e Start: April 25, 2025 End: April 25, 2025 Dr. Shan Lockett DO Attending Provider Active Start: April 25, 2025 End: April 25, 2025 Team Status: Active Member Role Status Dates Dr. Marci Lopez DO Primary Care Provider Ac tive Start: April 25, 2025 Dr. Marci Lopez DO Referring Provider Activ e Start: April [...] Active Member Role/Relationship Status Dates Dr. Marci Lopez DO Primary Care Provider Ac tive Team Status: Active Member Role/Relationship Status Dates Dr. Marci Lopez DO Primary Care Provider Ac tive Start: January 22, 2025 Dr. Luigi Tinoco MD Attending Provider Active Start: January 22, 2025 Dr. Luigi Tinoco MD Referring Provider Active Start: January 22, 2025 Team Status: Inactive Member Role/Relationship Status Dates Dr. Marci Lopez DO Primary Care Provider Ac tive Start: January 23, 2025 End: January 23, 2025 Dr. Marci Lopez DO Referring Provider Activ e Start: January 23, 2025 End: January 23, 2025 Dr. Luigi Tinoco MD Attending Provider Active Start: January 23, 2025 End: January 23, 2025 Team Status: Inactive Member Role/Relationship Status Dates Dr. Marci Lopez DO Primary Care Provider Ac tive Start: January 29, 2025 End: January 29, 2025 Dr. Danish Tavarez MD Attending Provider Active S tart: January 29, 2025 End: January 29, 2025 Dr. Danish Tavarez MD Referring Provider Active S tart: January 29, 2025 End: January 29, 2025 Team Status: Inactive Member Role/Relationship Status Dates Dr. Marci Lopez DO Primary Care Provider Ac tive Start: February 13, 2025 End: February 13, 2025 Dr. Marci Lopez DO Referring Provider Activ e Start: February 13, 2025 End: February 13, 2025 Mayte Burch CLERK TYPIST, CLERK TYPIST-C Attending Provider Active Start: February 13, 2025 End: February 13, 2025 Team Status: Inactive Member Role/Relationship Status Dates Dr. Marci Lopez DO Primary Care Provider Ac tive Start: February 14, 2025 End: February 14, 2025 Dr. Marci Lopez DO Referring Provider Activ e Start: February 14, 2025 End: February 14, 2025 AMRIK Sanford Attending Provider Active Start: February 14, 2025 End: February 14, 2025 Team Status: Inactive Member Role/Relationship Status Dates Dr. Marci Lopez , DO Primary Care Provider Ac tive Start: March 10, 2025 End: March 10, 2025 Dr. Jose Jaime , Attending Provider Active Start: March 10, 2025 End: March 10, 2025 Dr. Jose Jaime , DO Emergency Provider Active Start: March 10, 2025 End: March 10, 2025 Team Status: Inactive Member Role/Relationship Status Dates Dr. Marci Lopez , DO Primary Care Provider Ac tive Start: April 19, 2025 End: April 19, 2025 Dr. Danish Tavarez MD Attending Provider Active S tart: April 19, 2025 End: April 19, 2025 Dr. Danish Tavarez MD Referring Provider Active S tart: April 19, 2025 End: April 19, 2025 Team Status: Inactive Member Role/Relationship Status Dates Dr. Marci Lopez , DO [...] Active Member Role/Relationship Status Dates Dr. Marci Lopez DO Primary Care Provider Ac tive Start: April 20, 2025 Dr. Romeo Padron , DO Emergency Provider Active Start: April 20, 2025 Dr. Maximo Orosco DO Admit Provider Active Start: April 20, 2025 Dr. Maximo Orosco , DO Attending Provider Active Start: April 20, 2025 Dr. Maximo Orosco , DO Other Provider Active Start: April 20, 2025 Team Status: Inactive Member Role/Relationship Status Dates Dr. Marci Lopez DO Primary [...] Inactive Member Role/Relationship Status Dates Dr. Marci Lopez DO Primary Care Provider Ac tive Start: April 25, 2025 End: April 25, 2025 Dr. Marci Lopez DO Referring Provider Activ e Start: April 25, 2025 End: April 25, 2025 Dr. Shan Lockett DO Attending Provider Active Start: April 25, 2025 End: April 25, 2025 Team Status: Active Member Role/Relationship Status Dates Dr. Marci Lopez DO Primary Care Provider Ac tive Start: April 25, 2025 Dr. Marci Lopez DO Referring Provider Activ e Start: April 25, 2025 Dr. Shan Lockett DO Attending Provider Active Start: April 25, 2025 Dr. Shan Lockett DO Other Provider Active St art: April 25, 2025 Team Status: Inactive Member Role/Relationship Status Dates Dr. Marci Lopez DO Primary Care Provider Ac tive Start: May 03, 2025 End: May 03, 2025 Dr. Danish Tavarez MD Attending Provider Active S tart: May 03, 2025 End: May 03, 2025 Dr. Danish Tavarez MD Referring Provider Active S tart: May 03, 2025 End: May 03, 2025 Team Status: Inactive Member Role/Relationship Status Dates Dr. Marci Lopez DO Primary Care Provider Ac tive Start: May 22, 2025 End: May 22, 2025 Dr. Fazal Heller DO Emergency Provider Active Start: May 22, 2025 End: May 22, 2025 Team Status: Inactive Member Role/Relationship Status Dates Dr. Marci Lopez DO Primary Care Provider Ac tive Start: January 29, 2025 End: January 29, 2025 Dr. Danish Tavarez MD Attending Provider Active S tart: January 29, 2025 End: January 29, 2025 Dr. Danish Tavarez MD Referring Provider Active S tart: January 29, 2025 End: January 29, 2025 Team Status: Inactive Member Role/Relationship Status Dates Dr. Marci Lopez DO Primary Care Provider Ac tive Start: February 13, 2025 End: February 13, 2025 Dr. Marci Lopez DO Referring Provider Activ e Start: February 13, 2025 End: February 13, 2025 Mayte Burch NP, CLERK TYPIST-C Attending Provider Active Start: February 13, 2025 End: February 13, 2025 Team Status: Inactive Member Role/Relationship Status Dates Dr. Marci Lopez DO Primary Care Provider Ac tive Start: February 14, 2025 End: February 14, 2025 Dr. Marci Lopez DO Referring Provider Activ e Start: February 14, 2025 End: February 14, 2025 AMRIK Sanford Attending Provider Active Start: February 14, 2025 End: February 14, 2025 Team Status: Inactive Member Role/Relationship Status Dates Dr. Marci Lopez DO Primary Care Provider Ac tive Start: March 10, 2025 End: March 10, 2025 Dr. Jose Jaime DO Attending Provider Active Start: March 10, 2025 End: March 10, 2025 Dr. Jose Jaime , Emergency Provider Active Start: March 10, 2025 End: March 10, 2025 Team Status: Inactive Member Role/Relationship Status Dates Dr. Marci Lopez , DO Primary Care Provider Ac tive Start: April 19, 2025 End: April 19, 2025 Dr. Danish Tavarez MD Attending Provider Active S tart: April 19, 2025 End: April 19, 2025 Dr. Danish Tavarez MD Referring Provider Active S tart: April 19, 2025 End: April 19, 2025 Team Status: Inactive Member Role/Relationship Status Dates Dr. Marci Lopez , DO [...] Active Member Role/Relationship Status Dates Dr. Marci Lopez , DO [...] Inactive Member Role/Relationship Status Dates Dr. Marci Lopez , DO [...] Inactive Member Role/Relationship Status Dates Dr. Marci Lopez , DO Primary Care Provider Ac tive Start: April 25, 2025 End: April 25, 2025 Dr. Marci Lopez DO Referring Provider Activ e Start: April 25, 2025 End: April 25, 2025 Dr. Shan Lockett DO Attending Provider Active Start: April 25, 2025 End: April 25, 2025 Team Status: Active Member Role/Relationship Status Dates Dr. Marci Lopez DO Primary Care Provider Ac tive Start: April 25, 2025 Dr. Marci Lopez DO Referring Provider Activ e Start: April 25, 2025 Dr. Shan Lockett , Attending Provider Active Start: April 25, 2025 Dr. Shan Lockett , DO Other Provider Active St art: April 25, 2025 Team Status: Inactive Member Role/Relationship Status Dates Dr. Marci Lopez DO Primary Care Provider Ac tive Start: May 03, 2025 End: May 03, 2025 Dr. Danish Tavarez MD Attending Provider Active S tart: May 03, 2025 End: May 03, 2025 Dr. Danish Tavarez MD Referring Provider Active S tart: May 03, 2025 End: May 03, 2025 Team Status: Inactive Member Role/Relationship Status Dates Dr. Marci Lopez DO Primary Care Provider Ac tive Start: May 22, 2025 End: May 22, 2025 Dr. Fazal Heller , Attending Provider Active Start: May 22, 2025 End: May 22, 2025 Dr. Fazal Heller , Emergency Provider Active Start: May 22, 2025 End: May 22, 2025 Team Status: Inactive Member Role/Relationship Status Dates Dr. Marci Lopez DO Primary Care Provider Ac tive Start: May 29, 2025 End: May 29, 2025 Dr. Marci Lopez DO Referring Provider Activ e Start: May 29, 2025 End: May 29, 2025 Kaykay Pena PA, PA Attending Provider Active Start: May 29, 2025 End: May 29, 2025 Team Status: Inactive Member Role/Relationship Status Dates Dr. Marci Lopez DO Primary Care Provider Ac tive Start: February 13, 2025 End: February 13, 2025 Dr. Marci Lopez , DO Referring Provider Activ e Start: February 13, 2025 End: February 13, 2025 Mayte Burch CLERK TYPIST, CLERK TYPIST-C Attending Provider Active Start: February 13, 2025 End: February 13, 2025 Team Status: Inactive Member Role/Relationship Status Dates Dr. Marci Lopez DO Primary Care Provider Ac tive Start: February 14, 2025 End: February 14, 2025 Dr. Marci Lopez DO Referring Provider Activ e Start: February 14, 2025 End: February 14, 2025 AMRIK Sanford Attending Provider Active Start: February 14, 2025 End: February 14, 2025 Team Status: Inactive Member Role/Relationship Status Dates Dr. Marci Lopez , DO Primary Care Provider Ac tive Start: March 10, 2025 End: March 10, 2025 Dr. Jose Jaime , Attending Provider Active Start: March 10, 2025 End: March 10, 2025 Dr. Jose Jaime , DO Emergency Provider Active Start: March 10, 2025 End: March 10, 2025 Team Status: Inactive Member Role/Relationship Status Dates Dr. Marci Lopez , DO Primary Care Provider Ac tive Start: April 19, 2025 End: April 19, 2025 Dr. Danish Tavarez MD Attending Provider Active S tart: April 19, 2025 End: April 19, 2025 Dr. Danish Tavarez MD Referring Provider Active S tart: April 19, 2025 End: April 19, 2025 Team Status: Inactive Member Role/Relationship Status Dates Dr. Marci Lopez , DO [...] Active Member Role/Relationship Status Dates Dr. Marci Lopez DO Primary Care Provider Ac tive Start: April 20, 2025 Dr. Romeo Padron , DO Emergency Provider Active Start: April 20, 2025 Dr. Maximo Orosco DO Admit Provider Active Start: April 20, 2025 Dr. Maximo Orosco , DO Attending Provider Active Start: April 20, 2025 Dr. Maximo Orosco , DO Other Provider Active Start: April 20, 2025 Team Status: Inactive Member Role/Relationship Status Dates Dr. Marci Lopez DO Primary [...] Inactive Member Role/Relationship Status Dates Dr. Marci Lopez DO Primary Care Provider Ac tive Start: April 25, 2025 End: April 25, 2025 Dr. Marci Lopez DO Referring Provider Activ e Start: April 25, 2025 End: April 25, 2025 Dr. Shan Lockett DO Attending Provider Active Start: April 25, 2025 End: April 25, 2025 Team Status: Active Member Role/Relationship Status Dates Dr. Marci Lopez DO Primary Care Provider Ac tive Start: April 25, 2025 Dr. Marci Lopez DO Referring Provider Activ e Start: April 25, 2025 Dr. Shan Lockett , Attending Provider Active Start: April 25, 2025 Dr. Shan Lockett DO Other Provider Active St art: April 25, 2025 Team Status: Inactive Member Role/Relationship Status Dates Dr. Marci Lopez DO Primary Care Provider Ac tive Start: May 03, 2025 End: May 03, 2025 Dr. Danish Tavarez MD Attending Provider Active S tart: May 03, 2025 End: May 03, 2025 Dr. Danish Tavarez MD Referring Provider Active S tart: May 03, 2025 End: May 03, 2025 Team Status: Inactive Member Role/Relationship Status Dates Dr. Marci Lopez DO Primary Care Provider Ac tive Start: May 22, 2025 End: May 22, 2025 Dr. Fazal Heller DO Attending Provider Active Start: May 22, 2025 End: May 22, 2025 Dr. Fazal Heller , DO Emergency Provider Active Start: May 22, 2025 End: May 22, 2025 Team Status: Inactive Member Role/Relationship Status Dates Dr. Marci Lopez DO Primary Care Provider Ac tive Start: May 29, 2025 End: May 29, 2025 Dr. Marci Lopez DO Referring Provider Activ e Start: May 29, 2025 End: May 29, 2025 Kaykay ROWLEY, PA Attending Provider Active Start: May 29, 2025 End: May 29, 2025 Team Status: Inactive Member Role/Relationship Status Dates Dr. Marci Lopez DO Primary Care Provider Ac tive Start: May 30, 2025 End: May 30, 2025 Dr. Marci Lopez DO Referring Provider Activ e Start: May 30, 2025 End: May 30, 2025 AMRIK Sanford Attending Provider Active Start: May 30, 2025 End: May 30, 2025 Inspector Final Assembly Conveyor Line Relationship Specialty Start Date End Date Marci Lopez [facility] [place] [id number] PCP - General Family Medicine 07/20/24 Source Comments (unrecognize d section and content) In the event this informatio n is protected by the Federal Confidentiality of Alcohol and Drug Abuse Patient Records regulations: The Federal rules restrict any use of the information to criminally investigate or prosecute any alcohol or drug abuse patient.[facility] the event this information is protected by the Federal Confidentiality of Alcohol and Drug Abuse Patient Records regulations: The Federal rules restrict any use of the information to criminally investigate or prosecute any alcohol or drug abuse patient.[facility] the event this information is protected by the Federal Confidentiality of Alcohol and Drug Abuse Patient Records regulations: The Federal rules restrict any use of the information to criminally investigate or prosecute any alcohol or drug abuse patient.[facility] the event this information is protected by the Federal Confidentiality of Alcohol and Drug Abuse Patient Records regulations: The Federal rules restrict any use of the information to criminally investigate or prosecute any alcohol or drug abuse patient.[facility] the event this information is protected by the Federal Confidentiality of Alcohol and Drug Abuse Patient Records regulations: The Federal rules restrict any use of the information to criminally investigate or prosecute any alcohol or drug abuse patient.[facility] the event this information is protected by the Federal Confidentiality of Alcohol and Drug Abuse Patient Records regulations: The Federal rules restrict any use of the information to criminally investigate or prosecute any alcohol or drug abuse patient.[facility] the event this information is protected by the Federal Confidentiality of Alcohol and Drug Abuse Patient Records regulations: The Federal rules restrict any use of the information to criminally investigate or prosecute any alcohol or drug abuse patient.[facility] the event this information is protected by the Federal Confidentiality of Alcohol and Drug Abuse Patient Records regulations: The Federal rules restrict any use of the information to criminally investigate or prosecute any alcohol or drug abuse patient.[facility] the event this information is protected by the Federal Confidentiality of Alcohol and Drug Abuse Patient Records regulations: The Federal rules restrict any use of the information to criminally investigate or prosecute any alcohol or drug abuse patient.[facility] the event this information is protected by the Federal Confidentiality of Alcohol and Drug Abuse Patient Records regulations: The Federal rules restrict any use of the information to criminally investigate or prosecute any alcohol or drug abuse patient.[facility] the event this information is protected by the Federal Confidentiality of Alcohol and Drug Abuse Patient Records regulations: The Federal rules restrict any use of the information to criminally investigate or prosecute any alcohol or drug abuse patient.[facility] the event this information is protected by the Federal Confidentiality of Alcohol and Drug Abuse Patient Records regulations: The Federal rules restrict any use of the information to criminally investigate or prosecute any alcohol or drug abuse patient.[facility] the event this information is protected by the Federal Confidentiality of Alcohol and Drug Abuse Patient Records regulations: The Federal rules restrict any use of the information to criminally investigate or prosecute any alcohol or drug abuse patient.[facility] the event this information is protected by the Federal Confidentiality of Alcohol and Drug Abuse Patient Records regulations: The Federal rules restrict any use of the information to criminally investigate or prosecute any alcohol or drug abuse patient.[facility] the event this information is protected by the Federal Confidentiality of Alcohol and Drug Abuse Patient Records regulations: The Federal rules restrict any use of the information to criminally investigate or prosecute any alcohol or drug abuse patient.[facility] the event this information is protected by the Federal Confidentiality of Alcohol and Drug Abuse Patient Records regulations: The Federal rules restrict any use of the information to criminally investigate or prosecute any alcohol or drug abuse patient.[facility] the event this information is protected by the Federal Confidentiality of Alcohol and Drug Abuse Patient Records regulations: The Federal rules restrict any use of the information to criminally investigate or prosecute any alcohol or drug abuse patient.[facility] the event this information is protected by the Federal Confidentiality of Alcohol and Drug Abuse Patient Records regulations: The Federal rules restrict any use of the information to criminally investigate or prosecute any alcohol or drug abuse patient.[facility] the event this information is protected by the Federal Confidentiality of Alcohol and Drug Abuse Patient Records regulations: The Federal rules restrict any use of the information to criminally investigate or prosecute any alcohol or drug abuse patient.[facility]In the event this information is protected by the Federal Confidentiality of Alcohol and Drug Abuse Patient Records regulations: The Federal rules restrict any use of the information to criminally investigate or prosecute any alcohol or drug abuse patient.[facility] the event this information is protected by the Federal Confidentiality of Alcohol and Drug Abuse Patient Records regulations: The Federal rules restrict any use of the information to criminally investigate or prosecute any alcohol or drug abuse patient.[facility]In the event this information is protected by the Federal Confidentiality of Alcohol and Drug Abuse Patient Records regulations: The Federal rules restrict any use of the information to criminally investigate or prosecute any alcohol or drug abuse patient.[facility] HospitalIn the event this information is protected by the Federal Confidentiality of Alcohol and Drug Abuse Patient Records regulations: The Federal rules restrict any use of the information to criminally investigate or prosecute any alcohol or drug abuse patient.[facility] HospitalIn the event this information is protected by the Federal Confidentiality of Alcohol and Drug Abuse Patient Records regulations: The Federal rules restrict any use of the information to criminally investigate or prosecute any alcohol or drug abuse patient.[facility]In the event this information is protected by the Federal Confidentiality of Alcohol and Drug Abuse Patient Records regulations: The Federal rules restrict any use of the information to criminally investigate or prosecute any alcohol or drug abuse patient.[facility] HospitalIn the event this information is protected by the Federal Confidentiality of Alcohol and Drug Abuse Patient Records regulations: The Federal rules restrict any use of the information to criminally investigate or prosecute any alcohol or drug abuse patient.[facility] HospitalIn the event this information is protected by the Federal Confidentiality of Alcohol and Drug Abuse Patient Records regulations: The Federal rules restrict any use of the information to criminally investigate or prosecute any alcohol or drug abuse patient.[facility]In the event this information is protected by the Federal Confidentiality of Alcohol and Drug Abuse Patient Records regulations: The Federal rules restrict any use of the information to criminally investigate or prosecute any alcohol or drug abuse patient.[facility]In the event this information is protected by the Federal Confidentiality of Alcohol and Drug Abuse Patient Records regulations: The Federal rules restrict any use of the information to criminally investigate or prosecute any alcohol or drug abuse patient.[facility] HospitalIn the event this information is protected by the Federal Confidentiality of Alcohol and Drug Abuse Patient Records regulations: The Federal rules restrict any use of the information to criminally investigate or prosecute any alcohol or drug abuse patient.[facility]In the event this information is protected by the Federal Confidentiality of Alcohol and Drug Abuse Patient Records regulations: The Federal rules restrict any use of the information to criminally investigate or prosecute any alcohol or drug abuse patient.[facility] HospitalIn the event this information is protected by the Federal Confidentiality of Alcohol and Drug Abuse Patient Records regulations: The Federal rules restrict any use of the information to criminally investigate or prosecute any alcohol or drug abuse patient.[facility] HospitalIn the event this information is protected by the Federal Confidentiality of Alcohol and Drug Abuse Patient Records regulations: The Federal rules restrict any use of the information to criminally investigate or prosecute any alcohol or drug abuse patient.[facility] HospitalIn the event this information is protected by the Federal Confidentiality of Alcohol and Drug Abuse Patient Records regulations: The Federal rules restrict any use of the information to criminally investigate or prosecute any alcohol or drug abuse patient.[facility] HospitalIn the event this information is protected by the Federal Confidentiality of Alcohol and Drug Abuse Patient Records regulations: The Federal rules restrict any use of the information to criminally investigate or prosecute any alcohol or drug abuse patient.[facility] HospitalIn the event this information is protected by the Federal Confidentiality of Alcohol and Drug Abuse Patient Records regulations: The Federal rules restrict any use of the information to criminally investigate or prosecute any alcohol or drug abuse patient.[facility] HospitalIn the event this information is protected by the Federal Confidentiality of Alcohol and Drug Abuse Patient Records regulations: The Federal rules restrict any use of the information to criminally investigate or prosecute any alcohol or drug abuse patient.[facility] HospitalIn the event this information is protected by the Federal Confidentiality of Alcohol and Drug Abuse Patient Records regulations: The Federal rules restrict any use of the information to criminally investigate or prosecute any alcohol or drug abuse patient.[facility] HospitalIn the event this information is protected by the Federal Confidentiality of Alcohol and Drug Abuse Patient Records regulations: The Federal rules restrict any use of the information to criminally investigate or prosecute any alcohol or drug abuse patient.[facility] Reason for Visit (unrecogniz ed section [...] HIGH MDM 60-74 MINUTES Ghazala Gusman MD [address] [place] [address] Referral ID Status Reason Start Date Expiration Date V isits Requested Visits Authorized [id number] Closed PCP Requested Referral 06/04/2022 06/04/2023 1 1 Reason Comments Established Patient Specialty Diagnoses / Procedures Referred By Contac t Referred To Contact Diagnoses Tremor of left hand Procedures PROVIDER ORDERED FOLLOW UP OFFICE/OUTPATIENT NEW HIGH MDM 60-74 MINUTES Sherif Ramirez MD [address] [place] [address] Referral ID Status Reason Start Date Expiration Date V isits Requested Visits Authorized [id number] Closed PCP Requested Referral 06/23/2022 06/23/2023 1 [...] AREA 1 DAY IMAGING Sherif Ramirez MD [address] [place] [address] [facility] [address] [place] [address] Referral ID Status Reason Start Date Expiration Date V isits Requested Visits Authorized [id number] Closed Auto-Generate d Referral 07/01/2023 07/30/2024 1 1 Reason Comments Established Patient Reason Onset Date Comments Other 06/28/2024 [place] Document ation Reason Onset Date Comments Release of Information 07/11/2024 Reason Onset Date Comments Other 07/11/2024 Needs call back from office Reason Onset Date Comments Other 08/04/2024 Reason Onset Date Comments Release of Information 08/05/2024 Specialty Diagnoses / Procedures Referred By Oni t Referred To Contact Radiology / IMAGING Diagnoses Interstitial emphysema PET SCAN/CT INITIAL STAGING SKULL BASE TO MID THIGH J98.2 EMPHYSEMA,INTERSTITIAL ANIRUDH OFFICE SCHEDULED ORDER IN SCANNED DOCS AUTH# [id number] GOOD 08/01/24-09/30/[address] ATTENUATION SKULL BASE MID-THIGH PET CT Kalen Izaguirre MD [address] [facility] [address] [place] [address] Radio [facility] [address] [facility] [place] [address] Referral ID Status Reason Start Date Expiration Date Visits Re quested Visits Authorized [id number] Closed 08/01/2024 09/30/2024 1 1 Reason Onset [...] Role: Primary Care Physician Address: Address: [address] [place] [address]- Name: JAC CHRISTENSEN MD Position: P4 Physician - Cardiology Med Service: Active Provider Member Role: Wire Stripping Machine Operator Address: Address: [address] [facility] [address] [place] [id number]- Care Team Related Persons Name: SONG PENA Address: Home [address] [place], [place] [phone] Care Team Personnel Name: LARY WHEAT DO Position: P4 Physician - Primary Care Med Service: Active Provider Member Role: Primary Care Physician Address: Address: [address] [place] [place], [place] [address] Name: JAC CHRISTENSEN MD Position: P4 Physician - Cardiology Med Service: Active Provider Member Role: Wire Stripping Machine Operator Address: Address: [address] [facility] [address] [id number]- Care Team Related Persons Name: PENASONG Address: Home [address] [place], [place] [phone] Care Team Personnel Name: LARY WHEAT DO Position: P4 Physician - Primary Care Med Service: Active Provider Member Role: Primary Care Physician Address: Address: [address] [place], [place] [id number] [place] [address] Name: JAC CHRISTENSEN MD Position: P4 Physician - Cardiology Med Service: Active Provider Member Role: Wire Stripping Machine Operator Address: Address: [address] [place] [id number]- Care Team Related Persons Name: SONG PENA Address: Home [address] [place], [place] [phone] Care Team Personnel Name: LARY WHEAT DO Position: P4 Physician - Primary Care Med Service: Active Provider Member Role: Primary Care Physician Address: Address: [address] [place], [place] [address] Name: JAC CHRISTENSEN MD Position: P4 Physician - Cardiology Med Service: Active Provider Member Role: Wire Stripping Machine Operator Address: Address: [address] [place] [id number]- Care Team Related Persons Name: SONG PENA Address: Home [address] [place], [place] [phone] Care Team Personnel Name: LARY WHEAT DO Position: P4 Physician - Primary Care Member Role: Primary Care Physician Address: Address: [address] [place] [address]- Name: JAC CHRISTENSEN MD Position: P4 Physician - Cardiology Address: Address: [address] [facility] [address] [id number]- Care Team Related Persons Name: SONG PENA Address: Home [address] [place], [place] [id number] Care Team Personnel Name: LARY WHEAT DO Position: P4 Physician - Primary Care Med Service: Active Provider Member Role: Primary Care Physician Address: Address: [address] [place] [address]- Name: JAC CHRISTENSEN MD Position: P4 Physician - Cardiology Med Service: Active Provider Member Role: Wire Stripping Machine Operator Address: Address: [facility] [facility] [address] [id number]- Care Team Related Persons Name: JOSE SONG Address: Home [address] [place], [place] [id number] Care Team Personnel Name: LARY WHEAT DO Position: P4 Physician - Primary Care Med Service: Active Provider Member Role: Primary Care Physician Address: Address: [address] [place] [address]- [place] Name: JAC CHRISTENSEN MD Position: P4 Physician - Cardiology Med Service: Active Provider Member Role: Wire Stripping Machine Operator Address: Address: [address] [facility] [place] [id number]- Care Team Related Persons Name: PENASONG Address: Home [address] [place], [place] [phone] Care Team Personnel Name: LARY WHEAT DO Position: P4 Physician - Primary Care Member Role: Primary Care Physician Address: Address: [facility] [place], [place] [phone] [place] [address] Name: JAC CHRISTENSEN MD Position: P4 Physician - Cardiology Member Role: Wire Stripping Machine Operator Address: Address: [address] [facility] [address] [place] [address]- [place] Care Team Related Persons Name: JOSESONG Address: Home [address] [place], [place] [phone] Care Team Personnel Name: LARY WHEAT DO Position: P4 Physician - Primary Care Member Role: Primary Care Physician Address: Address: [address] [place] [address]- Name: JAC CHRISTENSEN MD Position: P4 Physician - Cardiology Member Role: Wire Stripping Machine Operator Address: Address: [address] [facility] [address] [id number]- Care Team Related Persons Name: SONG PENA Address: Home [address] [place], [place] [phone] Care Team Personnel Name: LARY WHEAT DO Position: P4 Physician - Primary Care Member Role: Primary Care Physician Address: Address: [facility] [place] [address]- Name: JAC CHRISTENSEN MD Position: P4 Physician - Cardiology Member Role: Wire Stripping Machine Operator Address: Address: [address] [address]- Care Team Related Persons Name: SONG PENA Address: Home [address] [place], [place] [phone] Care Team Personnel Name: LARY WHEAT DO Position: P4 Physician - Primary Care Member Role: Primary Care Physician Address: Address: [facility] [place] [address]- Name: JAC CHRISTENSEN MD Position: P4 Physician - Cardiology Member Role: Wire Stripping Machine Operator Address: Address: [address] [address]- Care Team Related Persons Name: SONG PENA Address: Home [address] [place], [place] [phone] Care Team Personnel Name: LARY WHEAT DO Position: P4 Physician - Primary Care Member Role: Primary Care Physician Address: Address: [address] [place] [id number] [place] [address] Name: JAC CHRISTENSEN MD Position: P4 Physician - Cardiology Member Role: Wire Stripping Machine Operator Address: Address: [address] [place] [address] Care Team Related Persons Name: SONG PENA Address: Home [address] [place] [phone] Care Team Personnel Name: LARY WHEAT DO Position: P4 Physician - Primary Care Member Role: Primary Care Physician Address: Address: [address] [place] [address] Name: JAC CHRISTENSEN MD Position: P4 Physician - Cardiology Member Role: Wire Stripping Machine Operator Address: Address: [address] [place] [address] Care Team Related Persons Name: SONG PENA Address: Home [address] [place] [phone] Care Team Personnel Name: ADRIENNE BYERS DO Position: P4 Physician - Primary Care Member Role: Primary Care Physician Address: Address: [address] [place] [phone] [place] [address] Name: JAC CHRISTENSEN MD Position: P4 Physician - Cardiology Member Role: Wire Stripping Machine Operator Address: Address: [address] [place] [address] Care Team Related Persons Name: SONG PENA Address: Home [address] [place] [phone] Goals (unrecognized section and content) Goals may [...] BE BASED ON THE PRIMARY CLINICAL RECORDS. [facility] [employer] [facility]. provides no warranty or guarantee of the accuracy or completeness of information in this document.
[2025-06-02] MEDS: Azithromycin 500 MG in 0.9% Normal Saline (250mL Bag) 250 ML 255 MG IV (14:38)
--- NOTE | 2025-06-02 18:01 | PCM.HP.STD ---
HPI - General General Date of Admission: 06/02/25 Date of Service: 06/02/25 HPI Narrative BETTY CARO, is a 70 F who presents to the emergency room at [facility] after her physician sent her in due to an elevated D-dimer that he had collected as an outpatient. Patient also complained of shortness of breath, abdominal pain, and nausea. Complaints of abdominal pain and nausea were not new to this patient. She had recently undergone an EGD which did not show any abnormality except for a mild stenosis in the duodenum which was biopsied. Patient has a history of irritable bowel syndrome and ischemic colitis. Workup in the emergency room included a CTA of the chest which showed increased groundglass opacities within the right middle and lower lobes as well as left lower lobe tree-in-bud opacities compatible with pneumonitis or pneumonia. No evidence of pulmonary embolism was noted. CTA of the abdomen and pelvis showed no changes from her previous abdominal and pelvic CTA done on 05/22/2025 which showed no acute pathology. White blood cell count was normal at 9, hemoglobin was 11.2, and chemistry profile was unremarkable. Beta natruretic peptide was elevated at 948. Due to the patient's abnormal CT of the chest, it was felt that the patient probably had pneumonia. 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 Patient will be admitted to PCU for community-acquired pneumonia and diastolic congestive heart failure, I will place her on low-dose IV Lasix and she will receive IV Rocephin and Zithromax. Patient is on multiple psychiatric medications, she also has a history of cerebral palsy. [facility] Medical History Back pain History of Holter monitoring History of stress test History of echocardiogram Cardiology follow-up encounter Ischemic colitis History of left heart catheterization History of mechanical ventilation Cardiogenic pulmonary edema Acute hypoxic respiratory failure Multiple lung nodules Major depressive disorder Left bundle branch block NSTEMI (non-ST elevated myocardial infarction) Diabetic peripheral vascular disease Diabetic nephropathy Chronic kidney disease (CKD) Bleeding ulcer Dyslipidemia Chronic systolic heart failure Pacemaker Congestive heart failure (CHF) Cerebral palsy Anxiety and depression Heart failure with reduced ejection fraction GERD (gastroesophageal reflux disease) Insomnia Transient ischemic attack AV node dysfunction Ischemic cardiomyopathy Presence of biventricular implantable cardioverter-defibrillator Ulcer Restless legs High cholesterol Anxiety Former smoker ICD (implantable cardioverter-defibrillator) in place Coronary artery disease CVA (cerebral vascular accident) PFO (patent foramen ovale) Cardiac resynchronization therapy defibrillator (ME[employer]IST-D) in place Myocarditis Hyperlipidemia Hypertension Home Medications ?Medication ?Instructions ?Recorded ?Last Taken ?Type clonazepam 1 mg tablet 1 mg PO QHS anxiety 11/18/14 06/01/25 History trazodone 50 mg tablet 50 mg PO DAILY Anxiety 11/18/14 06/01/25 History aspirin 81 mg tablet,delayed 81 mg PO .COMPLEX heart 10/01/23 06/01/25 History release rosuvastatin 20 mg tablet 20 mg PO QHS cholesterol 02/21/24 06/01/25 History furosemide 20 mg tablet 20 mg PO QDAY PRN for 2lb weight 06/13/24 06/19/24 History gain escitalopram oxalate 5 mg tablet 5 mg PO QDAY Mood 11/28/24 06/01/25 History polyethylene glycol 3350 17 17 g PO DAILY Constipation 11/28/24 06/01/25 History gram/dose oral powder (Miralax) lamotrigine 100 mg tablet 100 mg PO QDAY Anxiety 01/23/25 06/02/25 History ferrous sulfate 325 mg (65 mg 325 mg PO QDAY Supplement 02/13/25 06/01/25 History iron) tablet (Feosol) linaclotide 145 mcg capsule 145 mcg PO QAM Constipation #60 02/14/25 Unknown Rx (Linzess) caps hyoscyamine sulfate 0.125 mg tablet 0.125 mg PO TID PRN dyspepsia #90 03/05/25 06/02/25 Rx tabs deutetrabenazine 6 mg 6 mg PO DAILY involuntary Movements 04/19/25 04/20/25 08:50 History tablet,extended release 24 hr (Austedo XR) oxycodone 5 mg tablet 5 mg PO Q6H PRN PRN Pain Score 04/30/25 Unknown Rx 6-10 7 days #28 tabs pantoprazole 40 mg tablet,delayed 40 mg PO DAILY 30 days #30 tabs 04/30/25 06/01/25 Rx release baclofen 5 mg tablet 5 mg PO DAILY SPASCITY 05/29/25 06/01/25 History docusate sodium 100 mg capsule 100 mg PO DAILY CONSTIPATION 05/29/25 Unknown History metformin 500 mg tablet 500 mg PO BID Diabetes 05/29/25 06/01/25 History ondansetron 4 mg disintegrating 4 mg PO Q8H #30 tabs 05/30/25 06/01/25 Rx tablet phenazopyridine 100 mg tablet 100 mg PO TID PRN PRN pain 06/02/25 06/02/25 History Allergy/AdvReac Type Severity Reaction Status Date / Time No Known Allergies Allergy Verified 06/02/25 10:33 Family History Father Heart disease Myocardial infarction Mother Anxiety and depression Suicide and self-inflicted injury from suicide age 52. Surgical History History of cardiac catheterization Presence of stent in coronary artery History of bilateral cataract extraction History of skin surgery S/P colon polypectomy History of cardiac defibrillator placement History of cholecystectomy History of coronary artery stent placement Social History household members: spouse Smoking Status: Former smoker how long ago did patient quit smokin-1.5 ppd from teen until quit in 2008. alcohol intake: never substance use type: does not use caffeine: Yes seatbelt use: always do you feel safe at home: Yes additional social history: - [employer] Narrative Review of systems was difficult to obtain from the patient due to the patient's psychiatric problems and her cerebral palsy, she is a poor informant. Information was obtained from the who is present at the time of my examination. Vital Signs Vital Signs Vital Signs: 06/02/25 10:33 06/02/25 10:35 06/02/25 10:35 Temperature 97.0 F L 97.5 F L Temperature Source Temporal Oral Pulse Rate 102 H 87 Respiratory Rate 18 20 H Respiratory Effort Short of Breath Respiratory Depth Normal Respiratory Pattern Normal Blood Pressure 76/59 L 114/61 Blood Pressure Mean 64 78 Pulse Ox 93 95 Oxygen Delivery Method Room Air Room Air Nasal Cannula Oxygen Flow Rate (L/min) 2 06/02/25 10:53 06/02/25 11:00 06/02/25 11:15 Temperature Temperature Source Pulse Rate 85 120 H Respiratory Rate 18 28 H Respiratory Effort Respiratory Depth Respiratory Pattern Blood Pressure 94/66 107/51 L Blood Pressure Mean 76 69 Pulse Ox 97 98 Oxygen Delivery Method Oxygen Flow Rate (L/min) 06/02/25 11:35 06/02/25 11:35 06/02/25 12:00 Temperature 98.7 F Temperature Source Oral Pulse Rate 78 78 Respiratory Rate 18 18 Respiratory Effort Respiratory Depth Respiratory Pattern Blood Pressure 104/55 L 104/78 104/55 L Blood Pressure Mean 71 86 71 Pulse Ox 95 94 98 Oxygen Delivery Method Nasal Cannula Nasal Cannula Oxygen Flow Rate (L/min) 2 2 06/02/25 12:15 06/02/25 12:30 06/02/25 12:45 Temperature Temperature Source Pulse Rate 71 64 72 Respiratory Rate 16 28 H 21 H Respiratory Effort Respiratory Depth Respiratory Pattern Blood Pressure 111/47 L 117/49 L 106/56 L Blood Pressure Mean 67 70 72 Pulse Ox 98 98 98 Oxygen Delivery Method Oxygen Flow Rate (L/min) 06/02/25 13:00 06/02/25 13:00 06/02/25 13:11 Temperature 98.4 F Temperature Source Oral Pulse Rate 86 66 71 Respiratory Rate 19 H 26 H 16 Respiratory Effort Respiratory Depth Respiratory Pattern Blood Pressure 110/53 L 110/53 L 116/52 L Blood Pressure Mean 72 71 68 Pulse Ox 94 99 97 Oxygen Delivery Method Nasal Cannula Nasal Cannula Oxygen Flow Rate (L/min) 2 2 06/02/25 13:15 06/02/25 13:46 06/02/25 14:00 Temperature 98.4 F 98.4 F Temperature Source Oral Pulse Rate 132 H 73 69 Respiratory Rate 27 H 18 12 Respiratory Effort Respiratory Depth Respiratory Pattern Blood Pressure 100/53 L 106/54 L 106/53 L Blood Pressure Mean 61 71 70 Pulse Ox 96 95 96 Oxygen Delivery Method Nasal Cannula Oxygen Flow Rate (L/min) 2 06/02/25 14:09 06/02/25 14:33 06/02/25 15:18 Temperature 98.4 F Temperature Source Oral Pulse Rate 64 Respiratory Rate 16 Respiratory Effort Respiratory Depth Respiratory Pattern Blood Pressure 108/60 Blood Pressure Mean 76 Pulse Ox 97 98 Oxygen Delivery Method Nasal Cannula Nasal Cannula Nasal Cannula Oxygen Flow Rate (L/min) 2 2 2 Weight Weight: 58.2 kg Body Mass Index (BMI) 19.5 Physical Exam Const alert and no apparent distress Constitutional Narrative: Patient appears disheveled and does not carry on a conversation with this examiner, she does follow commands. General Appearance: cooperative and well developed Orientation / Consciousness: awake HEENT normocephalic, head/scalp atraumatic, hearing grossly normal bilaterally and moist oral mucous membranes Eyes PERRL, EOMs intact bilaterally and conjunctivae normal Neck supple, no JVD, thyroid normal and no carotid bruits General: trachea midline Resp normal respiratory effort, no retractions, no use of accessory muscles and clear to auscultation bilaterally Auscultation: Negative for rales, rhonchi or wheezes Cardio regular rate, regular rhythm, S1 normal heart sound, S2 normal heart sound, no murmurs, no rub and no gallops GI normal to inspection, nondistended, normoactive bowel sounds, soft to palpation, non-tender and non-distended Extremity no clubbing, cyanosis or edema Skin no rashes or lesions noted General Skin Exam: no breakdown Neuro CN's II-XII intact bilaterally, moves all extremities, no focal motor deficits and no sensory deficits noted Sensorium / Orientation: awake, alert, oriented to person and oriented to place Speech: speech normal Psych Psych Narrative: Patient has flat affect, he does not readily carry on conversations with this examiner Results Lab / Micro Data 06/02/25 10:45 06/02/25 10:45 Labs: Laboratory Results - last 24 hr 06/02/25 10:45: WBC 9.0, RBC 3.66 L, Hgb 11.2 L, Hct 34.6 L, MCV 94.5, MCH 30.6, MCHC 32.4, RDW Std Deviation 46.7 H, RDW Coeff of Edita 13.4, Plt Count 230, MPV 10.0, Sodium 137, Potassium 3.8, Chloride 102, Carbon Dioxide 24.0, Anion Gap 11, BUN 19, Creatinine 1.16, Estim Creat Clear Calc 42.38 L, Est GFR (MDRD) Non-Af 50 L, BUN/Creatinine Ratio 16.6, Glucose 140 H, Calcium 8.7, Total Bilirubin 0.27, AST 24, ALT 6, Alkaline Phosphatase 70, NT pro BNP II 948 H, Total Protein 6.9, Albumin 3.1 L, Globulin 3.8, Albumin/Globulin Ratio 0.8 L, Lipase 15 06/02/25 11:08: Lactic Acid 1.3 Micro: Microbiology 06/02/25 13:03 Mucosa - Nose SARS-CoV-2, Influenza & RSV (PCR) - Final Imaging Radiology Impression Chest/Abdomen/Pelvis CTA 06/02/25 10:55 IMPRESSION: Visualization of visceral organs is limited by coronal and sagittal MIP imaging. CTA chest: 1. Increased ground-glass opacities within the right middle and lower lobes, as well as left lower lobe tree-in-bud opacities, compatible with pneumonitis/pneumonia. 2. No traumatic thoracic aortic injury. CTA abdomen pelvis: No change since prior examination. Reading Location: [id number] Assessment & Plan Assessment/Plan (1) Dyspnea: PLAN: Plan 1. Community-acquired pneumonia-patient's chest CTA shows groundglass appearance into the areas of the right lung in particular. It is hard to determine whether this is pneumonia-she has a normal white blood cell count and is not having any symptoms of cough, fever, or chills. I have elected to treat the patient with IV Zithromax and Rocephin. #2 elevated beta natruretic peptide-possible mild congestive heart failure-I have elected to place the patient on a small dose of IV Lasix twice a day to see if this would improve her oxygenation. 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 #3 hypoxia secondary to #1 #2-pulse ox will be monitored #4 Beatties-patient will be placed on 1800-calorie diet, I do not feel the patient needs to be monitored with fingerstick blood sugars at this time, she is only on metformin. #5 cerebral palsy-complicates care, management, recovery, and prognosis #6 chronic abdominal pain/irritable bowel syndrome/history of ischemic colitis I do not feel the patient needs a workup for her complaints of abdominal pain, this seems to be a chronic problem #7 chronic anxiety/depression-patient will remain on her outpatient medications. Total clinical time spent by myself addressing the patient's medical issues, reviewing all of her data, and collaborating with the patient's care team: 75 minutes Charges/Coding Visit Charges Inpatient E&M: 54622 Init Hosp L3
[2025-06-02] MEDS: Aspirin E.C. 81 MG Tablet PO (18:44)
[2025-06-02] MEDS: Heparin Injection (Vial) 5,000 UNIT/ML VIAL 5000 UNIT SC (21:38)
[2025-06-02] MEDS: 0.9% Saline Lock 10 ML Syringe IV (21:41)
[2025-06-03] VITALS (7 sets, daily range): BP systolic 99–123; BP diastolic 53–102; PULSE 72–81; RESP 16–18; TEMP 36.6–37.2; O2SAT 94–100
[2025-06-03 07:16] LABS: Hematocrit 29.0 % (37-47); Hemoglobin 9.5 g/dL (12.0-15.0); Immature Granulocytes Count 0.010 X10^3/uL (0.0-0.0); Mean Corp Hgb Conc 32.8 g/dL (32-36); Mean Corpuscular Volume 93.2 fL (81-99); Mean Platelet Vol. 10.1 fl (6.2-12.0); NRBC Flagged by Analyzer 0 % (0-5); Platelet Count 203 K/mm3 (150-450); RBC Distribution Width CV 13.6 % (11.6-14.6); RBC Distribution Width SD 46.3 fl (35.1-43.9); Red Blood Count 3.11 M/mm3 (4.2-5.4); White Blood Count 7.1 K/mm3 (4.4-11.0)
[2025-06-03] MEDS: Heparin Injection (Vial) 5,000 UNIT/ML VIAL 5000 UNIT SC ×2 (08:45→22:44)
[2025-06-03] MEDS: Furosemide 20 MG/2 ML VIAL 10 MG IV (08:47)
[2025-06-03] MEDS: Polyethylene Glycol 3350 17 GM PACKET PO (08:48)
[2025-06-03] MEDS: 0.9% Saline Lock 10 ML Syringe IV (09:32)
[2025-06-03] MEDS: Azithromycin 500 MG in 0.9% Normal Saline (250mL Bag) 250 ML 250 MG IV (10:42)
--- NOTE | 2025-06-03 16:10 | PCM.PN.HOSP ---
Subjective Subjective Patient's white blood cell count today remains normal, her hemoglobin did drop to 9.5. I will repeat the patient's CBC tomorrow patient was seen and examined today, she answers simple questions appropriately but appears lethargic. She awakens easily to stimulation and again answer simple questions. Objective Data Objective Data Vital Signs: Vital Signs Temp Pulse Resp BP Pulse Ox O2 Del Method O2 Flow Rate 98.2 F 78 18 119/102 H 96 Nasal Cannula 2 06/03/25 08:38 06/03/25 08:38 06/03/25 08:38 06/03/25 08:38 06/03/25 08:38 06/03/25 09:00 06/03/25 09:00 Oxygen Flow Rate (L/min) 2 Oxygen Delivery Method Nasal Cannula Weight: 58.2 kg Body Mass Index (BMI) 19.5 Intake & Output: Intake and Output for Last 24 Hours 06/01/25 06/02/25 06/03/25 23:59 23:59 23:59 Intake Total 305 / 305 620 / 620 Balance 305 / 305 620 / 620 Lab / Micro Data 06/03/25 06:35 06/02/25 10:45 Labs: Laboratory Results - last 24 hr 06/03/25 06:35: WBC 7.1, RBC 3.11 L, Hgb 9.5 L, Hct 29.0 L, MCV 93.2, MCH 30.5, MCHC 32.8, RDW Std Deviation 46.3 H, RDW Coeff of Edita 13.6, Plt Count 203, MPV 10.1, Immature Gran % (Auto) 0.100, Neut % (Auto) 66.4, Lymph % (Auto) 19.2, [place] % (Auto) 12.4 H, Eos % (Auto) 1.6, Baso % (Auto) 0.3, Absolute Neuts (auto) 4.7, Absolute Lymphs (auto) 1.36, Nucleated RBC % 0 Micro: Microbiology 06/02/25 14:13 Mucosa - Nasopharyngeal Respiratory Panel (PCR) - Final 06/02/25 13:03 Mucosa - Nose SARS-CoV-2, Influenza & RSV (PCR) - Final Physical Exam Narrative alert and no apparent distress Constitutional Narrative: Patient appears disheveled and does not carry on a conversation with this examiner, she does follow commands. General Appearance: cooperative and well developed Orientation / Consciousness: awake HEENT normocephalic, head/scalp atraumatic, hearing grossly normal bilaterally and moist oral mucous membranes Eyes PERRL, EOMs intact bilaterally and conjunctivae normal Neck supple, no JVD, thyroid normal and no carotid bruits General: trachea midline Resp normal respiratory effort, no retractions, no use of accessory muscles and clear to auscultation bilaterally Auscultation: Negative for rales, rhonchi or wheezes Cardio regular rate, regular rhythm, S1 normal heart sound, S2 normal heart sound, no murmurs, no rub and no gallops GI normal to inspection, nondistended, normoactive bowel sounds, soft to palpation, non-tender and non-distended Extremity no clubbing, cyanosis or edema Skin no rashes or lesions noted General Skin Exam: no breakdown Neuro CN's II-XII intact bilaterally, moves all extremities, no focal motor deficits and no sensory deficits noted Sensorium / Orientation: awake, alert, oriented to person and oriented to place Speech: speech normal Psych Psych Narrative: Patient has flat affect, he does not readily carry on conversations with this examiner Assessment & Plan Assessment/Plan (1) Pneumonia: (2) Dyspnea: PLAN: Plan 1. Community-acquired pneumonia-patient's chest CTA shows groundglass appearance into the areas of the right lung in particular. It is hard to determine whether this is pneumonia-she has a normal white blood cell count and is not having any symptoms of cough, fever, or chills. I have elected to continue her IV Zithromax and Rocephin #2 elevated beta natruretic peptide-possible mild congestive heart failure-patient is currently receiving a small dose of IV Lasix twice a day #3 hypoxia secondary to #1 #2-pulse ox will be monitored #4 Beatties-patient will be placed on 1800-calorie diet, I do not feel the patient needs to be monitored with fingerstick blood sugars at this time, she is only on metformin. #5 cerebral palsy-complicates care, management, recovery, and prognosis #6 chronic abdominal pain/irritable bowel syndrome/history of ischemic colitis I do not feel the patient needs a workup for her complaints of abdominal pain, this seems to be a chronic problem #7 chronic anxiety/depression-patient will remain on her outpatient medications. Total clinical time spent by myself addressing the patient's medical issues, reviewing all of her data, and collaborating with the patient's care team: 35 minutes Charges/Coding Visit Charges Inpatient E&M: 43593 Subs Hosp L2
[2025-06-04] VITALS (10 sets, daily range): BP systolic 94–125; BP diastolic 40–65; PULSE 70–104; RESP 16–20; TEMP 36.8–37.3; O2SAT 88–98
[2025-06-04] MEDS: 0.9% Saline Lock 10 ML Syringe IV (08:59)
[2025-06-04] MEDS: Azithromycin 500 MG in 0.9% Normal Saline (250mL Bag) 250 ML 250 MG IV (09:06)
[2025-06-04] MEDS: Heparin Injection (Vial) 5,000 UNIT/ML VIAL 5000 UNIT SC ×2 (10:46→20:55)
[2025-06-04] MEDS: Polyethylene Glycol 3350 17 GM PACKET PO (10:46)
[2025-06-04 14:01] LABS: Hematocrit 31.4 % (37-47); Hemoglobin 10.2 g/dL (12.0-15.0); Immature Granulocytes Count 0.010 X10^3/uL (0.0-0.0); Mean Corp Hgb Conc 32.5 g/dL (32-36); Mean Corpuscular Volume 95.2 fL (81-99); Mean Platelet Vol. 10.2 fl (6.2-12.0); NRBC Flagged by Analyzer 0 % (0-5); Platelet Count 232 K/mm3 (150-450); RBC Distribution Width CV 13.6 % (11.6-14.6); RBC Distribution Width SD 47.6 fl (35.1-43.9); Red Blood Count 3.30 M/mm3 (4.2-5.4); White Blood Count 6.3 K/mm3 (4.4-11.0)
[2025-06-04] MEDS: Aspirin E.C. 81 MG Tablet PO (14:18)
--- NOTE | 2025-06-04 18:20 | PN.HOSP_ITS ---
Subjective Subjective Patient was seen and examined today, I talked with the patient's who is in the room at the time of my examination. Patient is currently on room air at this time. I have decided to change the patient over from IV antibiotics to oral antibiotics. Objective Data Objective Data Vital Signs: Vital Signs Temp Pulse Resp BP Pulse Ox O2 Del Method O2 Flow Rate 98.4 F 83 18 106/55 L 94 Room Air 2 06/04/25 14:15 06/04/25 14:15 06/04/25 14:15 06/04/25 14:15 06/04/25 14:15 06/04/25 14:15 06/04/25 11:02 Oxygen Flow Rate (L/min) 2 Oxygen Delivery Method Room Air Weight: 58.2 kg Body Mass Index (BMI) 19.5 Intake & Output: Intake and Output for Last 24 Hours 06/02/25 06/03/25 06/04/25 23:59 23:59 23:59 Intake Total 305 / 305 940 / 940 300 / 300 Balance 305 / 305 940 / 940 300 / 300 Lab / Micro Data 06/04/25 13:45 06/02/25 10:45 Labs: Laboratory Results - last 24 hr 06/04/25 08:52: POC Glucose 140 H 06/04/25 13:45: WBC 6.3, RBC 3.30 L, Hgb 10.2 L, Hct 31.4 L, MCV 95.2, MCH 30.9, MCHC 32.5, RDW Std Deviation 47.6 H, RDW Coeff of Edita 13.6, Plt Count 232, MPV 10.2, Immature Gran % (Auto) 0.200, Neut % (Auto) 64.7, Lymph % (Auto) 25.1, [place] % (Auto) 8.2, Eos % (Auto) 1.3, Baso % (Auto) 0.5, Absolute Neuts (auto) 4.1, Absolute Lymphs (auto) 1.59, Nucleated RBC % 0 Micro: Microbiology 06/02/25 13:40 Blood Culture (Wb) - Right Hand Blood Culture - Preliminary No growth in 48 hours. 06/02/25 13:42 Blood Culture (Wb) - Anticubital Right Blood Culture - Preliminary No growth in 48 hours. 06/02/25 14:13 Mucosa - Nasopharyngeal Respiratory Panel (PCR) - Final 06/02/25 13:03 Mucosa - Nose SARS-CoV-2, Influenza & RSV (PCR) - Final Physical Exam Narrative alert and no apparent distress Constitutional Narrative: Patient appears disheveled and does not carry on a conversation with this examiner, she does follow commands. General Appearance: cooperative and well developed Orientation / Consciousness: awake HEENT normocephalic, head/scalp atraumatic, hearing grossly normal bilaterally and moist oral mucous membranes Eyes PERRL, EOMs intact bilaterally and conjunctivae normal Neck supple, no JVD, thyroid normal and no carotid bruits General: trachea midline Resp normal respiratory effort, no retractions, no use of accessory muscles and clear to auscultation bilaterally Auscultation: Negative for rales, rhonchi or wheezes Cardio regular rate, regular rhythm, S1 normal heart sound, S2 normal heart sound, no murmurs, no rub and no gallops GI normal to inspection, nondistended, normoactive bowel sounds, soft to palpation, non-tender and non-distended Extremity no clubbing, cyanosis or edema Skin no rashes or lesions noted General Skin Exam: no breakdown Neuro CN's II-XII intact bilaterally, moves all extremities, no focal motor deficits and no sensory deficits noted Sensorium / Orientation: awake, alert, oriented to person and oriented to place Speech: speech normal Psych Psych Narrative: Patient has flat affect, he does not readily carry on conversations with this examiner Assessment & Plan Assessment/Plan (1) Pneumonia: (2) Dyspnea: PLAN: Plan 1. Community-acquired pneumonia-patient's chest CTA shows groundglass appearance into the areas of the right lung in particular. It is hard to determine whether this is pneumonia-she has a normal white blood cell count and is not having any symptoms of cough, fever, or chills. I have elected to continue her IV Zithromax and Rocephin #2 elevated beta natruretic peptide-possible mild congestive heart failure-I decided to stop the patient's IV Lasix due to her hypotension #3 hypoxia secondary to #1 #2-pulse ox will be monitored #4 Type 2 diabetes-patient will be placed on 1800-calorie diet, I do not feel the patient needs to be monitored with fingerstick blood sugars at this time, she is only on metformin. #5 cerebral palsy-complicates care, management, recovery, and prognosis #6 chronic abdominal pain/irritable bowel syndrome/history of ischemic colitis I do not feel the patient needs a workup for her complaints of abdominal pain, this seems to be a chronic problem #7 chronic anxiety/depression-patient will remain on her outpatient medications. Total clinical time spent by myself addressing the patient's medical issues, reviewing all of her data, and collaborating with the patient's care team: 35 minutes Charges/Coding Visit Charges Inpatient E&M: 65982 Subs Hosp L2
[2025-06-05 03:15] VITALS: BP 106/57; PULSE 87; RESP 16; TEMP 36.4; O2SAT 93
[2025-06-05 07:20] VITALS: O2SAT 98
--- NOTE | 2025-06-05 07:27 | CASEMGMT ---
RN CM Assessment Pt is under OBS status. Noted 6-Click score is 17. This RN CM opted to complete assessment incase any DC needs arise. Face to Face with patient for initial transition planning/care coordination assessment. TANIA ALLEN introduced self and role at [facility], pt voices understanding. Pt is A&Ox4 and is resting comfortably in bed and is calm. Pt at bedside. Care providers, pharmacy, and demographics verified. Admitting dx: Pneumonia, Hypoxia LACE Strata: 3 PCP: Joaquin Specialists: JIGNESH, Job, Podiatry; Leeanna, Neurology Preferred Pharmacy: [facility] Insurance: [employer] Prescription Benefit: Yes LNOK: , [place] Living Arrangements: Pt lives with her in a two story home with two steps to enter ADLs/IADLs: Pt states she was ind at baseline, is able to assist her as needed with tasks such as cooking and cleaning. Pt seems to be increasingly weaker and needing more assistance. Transportation: Pt provides transportation DME: [employer] and supplies, Walker, Rollator, Shower chair, Quad Cane, Grab bars HHC/SNF: Hx at [facility] TCU. Hx with [facility] HH Discussed possibility of O2 at time of DC, provided a verbal list of local providers. Pt chose [facility] as DME provider of choice. Pt denies any questions or concerns at this time. Pt?s goal: Home with pt Plan: Home with family support. Pt is currently active with OP therapy at [facility]. Follow for O2 needs. Robbie Cameron RN CM
[2025-06-05 09:38] VITALS: BP 110/60; PULSE 80; RESP 16; TEMP 36.9; O2SAT 98
[2025-06-05] MEDS: Heparin Injection (Vial) 5,000 UNIT/ML VIAL 5000 UNIT SC ×2 (09:53→22:30)
[2025-06-05] MEDS: Polyethylene Glycol 3350 17 GM PACKET PO (09:54)
[2025-06-05 14:26] VITALS: BP 112/60; PULSE 74; RESP 16; TEMP 37; O2SAT 93
--- NOTE | 2025-06-05 15:09 | PCM.PN.HOSP ---
Subjective Subjective Patient was seen and examined today, earlier today she required oxygen at 2 L/min, was reluctant to take the patient home today and I told him we would recheck her tomorrow morning for possible discharge home. Objective Data Objective Data Vital Signs: Vital Signs Temp Pulse Resp BP Pulse Ox O2 Del Method O2 Flow Rate 98.6 F 74 16 112/60 93 Room Air 2 06/05/25 14:26 06/05/25 14:26 06/05/25 14:26 06/05/25 14:26 06/05/25 14:26 06/05/25 14:06/05/25 09:50 Oxygen Flow Rate (L/min) 2 Oxygen Delivery Method Room Air Weight: 58.2 kg Body Mass Index (BMI) 19.5 Intake & Output: Intake and Output for Last 24 Hours 06/03/25 06/04/25 06/05/25 23:59 23:59 23:59 Intake Total 940 / 940 300 / 300 250 / 250 Balance 940 / 940 300 / 300 250 / 250 Lab / Micro Data 06/04/25 13:45 06/02/25 10:45 Micro: Microbiology 06/02/25 13:40 Blood Culture (Wb) - Right Hand Blood Culture - Preliminary No growth in 48 hours. 06/02/25 13:42 Blood Culture (Wb) - Anticubital Right Blood Culture - Preliminary No growth in 48 hours. 06/02/25 14:13 Mucosa - Nasopharyngeal Respiratory Panel (PCR) - Final 06/02/25 13:03 Mucosa - Nose SARS-CoV-2, Influenza & RSV (PCR) - Final Physical Exam Narrative alert and no apparent distress Constitutional Narrative: Patient appears disheveled and does not carry on a conversation with this examiner, she does follow commands. General Appearance: cooperative and well developed Orientation / Consciousness: awake HEENT normocephalic, head/scalp atraumatic, hearing grossly normal bilaterally and moist oral mucous membranes Eyes PERRL, EOMs intact bilaterally and conjunctivae normal Neck supple, no JVD, thyroid normal and no carotid bruits General: trachea midline Resp normal respiratory effort, no retractions, no use of accessory muscles and clear to auscultation bilaterally Auscultation: Negative for rales, rhonchi or wheezes Cardio regular rate, regular rhythm, S1 normal heart sound, S2 normal heart sound, no murmurs, no rub and no gallops GI normal to inspection, nondistended, normoactive bowel sounds, soft to palpation, non-tender and non-distended Extremity no clubbing, cyanosis or edema Skin no rashes or lesions noted General Skin Exam: no breakdown Neuro CN's II-XII intact bilaterally, moves all extremities, no focal motor deficits and no sensory deficits noted Sensorium / Orientation: awake, alert, oriented to person and oriented to place Speech: speech normal Psych Psych Narrative: Patient has flat affect, he does not readily carry on conversations with this examiner Assessment & Plan Assessment/Plan (1) Pneumonia: (2) Dyspnea: PLAN: Plan 1. Community-acquired pneumonia-patient's chest CTA shows groundglass appearance into the areas of the right lung in particular. It is hard to determine whether this is pneumonia-she has a normal white blood cell count and is not having any symptoms of cough, fever, or chills. Patient is now on oral Levaquin, if the patient appears medically stable on 06/06/2025, she could be discharged home. #2 elevated beta natruretic peptide-possible mild congestive heart failure-I decided to stop the patient's IV Lasix due to her hypotension #3 hypoxia secondary to #1 #2-pulse ox will be monitored, she will need a walking home oxygen qualification test tomorrow #4 Type 2 diabetes-patient will be placed on 1800-calorie diet, I do not feel the patient needs to be monitored with fingerstick blood sugars at this time, she is only on metformin. #5 cerebral palsy-complicates care, management, recovery, and prognosis #6 chronic abdominal pain/irritable bowel syndrome/history of ischemic colitis I do not feel the patient needs a workup for her complaints of abdominal pain, this seems to be a chronic problem. Patient's requested that I check her for celiac disease, I ordered a celiac panel on the patient. #7 chronic anxiety/depression-patient will remain on her outpatient medications. Total clinical time spent by myself addressing the patient's medical issues, reviewing all of her data, and collaborating with the patient's care team: 35 minutes Charges/Coding Visit Charges Inpatient E&M: 64223 Subs Hosp L2
[2025-06-05 19:22] VITALS: PULSE 78; RESP 16; O2SAT 96
[2025-06-05 22:26] VITALS: BP 108/57; PULSE 83; RESP 16; TEMP 36.7; O2SAT 99
[2025-06-06] VITALS (10 sets, daily range): BP systolic 115–143; BP diastolic 57–68; PULSE 81–96; RESP 16–18; TEMP 36.9–37.1; O2SAT 78–99
--- NOTE | 2025-06-06 09:54 | PCM.PN.HOSP ---
Objective Data Objective Data Vital Signs: Vital Signs Temp Pulse Resp BP Pulse Ox O2 Del Method O2 Flow Rate 98.6 F 96 16 115/57 L 93 Room Air 2 06/06/25 03:49 06/06/25 03:49 06/06/25 03:49 06/06/25 03:49 06/06/25 07:15 06/06/25 07:15 06/05/25 19:22 Oxygen Flow Rate (L/min) 2 Oxygen Delivery Method Room Air Weight: 128 lb 4.944 oz Body Mass Index (BMI) 19.5 Intake & Output: Intake and Output for Last 24 Hours 06/04/25 06/05/25 06/06/25 23:59 23:59 23:59 Intake Total 300 / 300 600 / 600 Balance 300 / 300 600 / 600 Lab / Micro Data 06/04/25 13:45 06/02/25 10:45 Micro: Microbiology 06/02/25 13:40 Blood Culture (Wb) - Right Hand Blood Culture - Preliminary No growth in 48 hours. 06/02/25 13:42 Blood Culture (Wb) - Anticubital Right Blood Culture - Preliminary No growth in 48 hours. 06/02/25 14:13 Mucosa - Nasopharyngeal Respiratory Panel (PCR) - Final 06/02/25 13:03 Mucosa - Nose SARS-CoV-2, Influenza & RSV (PCR) - Final Assessment & Plan Assessment/Plan (1) Pneumonia: (2) Dyspnea: PLAN: Plan 1. Community-acquired pneumonia-patient's chest CTA shows groundglass appearance into the areas of the right lung in particular. It is hard to determine whether this is pneumonia-she has a normal white blood cell count and is not having any symptoms of cough, fever, or chills. Patient is now on oral Levaquin, if the patient appears medically stable on 06/06/2025, she could be discharged home. #2 elevated beta natruretic peptide-possible mild congestive heart failure-I decided to stop the patient's IV Lasix due to her hypotension #3 hypoxia secondary to #1 #2-pulse ox will be monitored, she will need a walking home oxygen qualification test tomorrow #4 Type 2 diabetes-patient will be placed on 1800-calorie diet, I do not feel the patient needs to be monitored with fingerstick blood sugars at this time, she is only on metformin. #5 cerebral palsy-complicates care, management, recovery, and prognosis #6 chronic abdominal pain/irritable bowel syndrome/history of ischemic colitis I do not feel the patient needs a workup for her complaints of abdominal pain, this seems to be a chronic problem. Patient's requested that I check her for celiac disease, I ordered a celiac panel on the patient. #7 chronic anxiety/depression-patient will remain on her outpatient medications. Total clinical time spent by myself addressing the patient's medical issues, reviewing all of her data, and collaborating with the patient's care team: 35 minutes
--- NOTE | 2025-06-06 09:55 | PCM.DC ---
Discharge Instructions DC O2, CPAP, BIPAP needs Home O2 Discharge instructions: No Dressing / Incision Discharge Activity: Return to Normal Activity and - (Resume baseline activity) Weight Bearing Status: Weight bearing as tolerated Dressing / Incision Call your doctor if you observe: Fever of 101 or Higher, Coldness, Increased Pain, Numbness or Tingling, Change in Color, Inability to urinate, Inability to have a bowel movement, Shortness of breath, Dizziness, Fainting spells, Swelling in the ankles, Chest pain, Prolonged hiccupping, Increased palpitations (irregular heartbeat) and Calf discomfort Follow Up Care When: IN 2 WEEKS Test Results: Test results from this visit will be discussed in further detail at your follow-up appointment, if applicable. Discharge Plan Admission Admit Date/Time: 06/02/25 13:36 Primary Reason for Your Visit: Community-acquired pneumonia Attending Provider: Ganesh Kiran Primary Care Provider: Marci Nuñez Consulting Providers: Ben Johnson Orders/Prescriptions Prescriptions: New levofloxacin 500 mg Tablet 500 mg PO DAILY@0600 2 Days Qty: 2 0RF Continued furosemide 20 mg tablet 20 mg PO QDAY PRN (Reason: for 2lb weight gain) metformin 500 mg tablet 500 mg PO BID lamotrigine 100 mg tablet 100 mg PO QDAY escitalopram oxalate 5 mg tablet 5 mg PO QDAY polyethylene glycol 3350 [Miralax] 17 gram/dose powder 17 g PO DAILY docusate sodium 100 mg capsule 100 mg PO DAILY Patient Comments: stopped 05/30/25 baclofen 5 mg tablet 5 mg PO DAILY Patient Comments: PRESCRIPTION FOR 4 TIMES DAILY ferrous sulfate [Feosol] 325 mg (65 mg iron) tablet 325 mg PO QDAY Linzess 145 mcg capsule 145 mcg PO QAM Qty: 60 2RF Patient Comments: stopped 05/30/25 ondansetron 4 mg tablet,disintegrating 4 mg PO Q8H Qty: 30 3RF trazodone 50 MG tablet 50 mg PO DAILY clonazepam 1 MG tablet 1 mg PO QHS aspirin 81 mg tablet,delayed release (DR/EC) 81 mg PO .COMPLEX Rx Instructions: 81 mg orally EVERY OTHER DAY; rosuvastatin 20 mg tablet 20 mg PO QHS pantoprazole 40 mg Tablet,Delayed Release (Dr/Ec) 40 mg PO DAILY 30 Days Qty: 30 0RF oxycodone 5 mg Tablet 5 mg PO Q6H PRN PRN (Reason: Pain Score 6-10) 7 Days Qty: 28 0RF Austedo XR 6 mg tablet extended release 24 hr 6 mg PO DAILY Patient Comments: stopped 06/02/25 phenazopyridine 100 mg tablet 100 mg PO TID PRN PRN (Reason: pain) hyoscyamine sulfate 0.125 mg tablet 0.125 mg PO TID PRN (Reason: dyspepsia) Qty: 90 2RF Referrals / Follow Up: Marci Nuñez DO [Primary Care Provider] - Lluvia Kilpatrick MIXING ENGINEER-C [Med Staff - [facility]] - Within 1 Month (For COPD evaluation) Disposition Disposition (needs filled in before D/C Order can be placed): Home, Self Care
[2025-06-06] MEDS: Aspirin E.C. 81 MG Tablet PO (10:18)
[2025-06-06] MEDS: 0.9% Saline Lock 10 ML Syringe IV (10:25)
[2025-06-06] MEDS: Heparin Injection (Vial) 5,000 UNIT/ML VIAL 5000 UNIT SC ×2 (10:29→21:16)
--- NOTE | 2025-06-06 10:36 | NURSING ---
primary RN updated on patient and prns/meds given, small emesis no oxyir pill found in emesis. Dr. Kiran in room.
--- NOTE | 2025-06-06 12:19 | PCM.DC.SUM ---
Providers Date of Admission: 06/02/25 Date of Discharge: 06/06/25 Primary Care Physician: Dr. Marci Nuñez, Reason For Visit: PNEUMONIA, HYPOXIA Diagnosis Discharge Diagnosis (1) Pneumonia: Status: Acute Code(s): J18.9 - Pneumonia, unspecified organism (2) Dyspnea: Status: Acute Code(s): R06.00 - Dyspnea, unspecified Plan 70-year-old female admitted for shortness of breath and abdominal pain. Her pulse ox was 82% on room air at home. No chest pain. CTA was negative for PE but found to have pneumonia. She has mild chronic cough. 1. Bilateral community-acquired pneumonia-patient's chest CTA shows groundglass appearance into the areas of the right middle and lower lobes and left lower lobe tree-in-bud opacity compatible with pneumonitis/pneumonia. Patient told me that she has chronic cough for long time but no fever or chills. Patient had 5 days of antibiotics while here discharged on 2 more days of levofloxacin. Advised to follow-up in pulmonary clinic for PFT. #2 elevated beta natruretic peptide-possible mild congestive heart failure-blood pressure on lower side therefore furosemide was stopped while here. # 3. Hypoxia due to bilateral pneumonia: Hypoxia has resolved. Home oxygen qualification test ordered #4 Type 2 diabetes-patient on 1800-calorie diet, continue home metformin #5 cerebral palsy-complicates care, management, recovery, and prognosis #6 chronic abdominal pain/irritable bowel syndrome/history of ischemic colitis, chronic problem: Patient follows Dr. Lockett in GI office. Celiac test ordered at time of admission is still pending. Follow-up in GI office #7 chronic anxiety/depression-patient will remain on her outpatient medications. Discharge medication reconciliation done. Discharge follow-up instructions completed. Discharge process discussed with the patient and all questions were answered to patient's satisfaction. Follow with PCP in 1 to 2 weeks Total time spent, exact 35 minutes on discharge meds reconciliation, examination, coordination of care with nurses and ancillary staff, review of imaging and blood test and discussion with the patient on follow-up instructions. Medications at Discharge Home Medications clonazepam 1 mg tablet 1 mg PO QHS anxiety 11/18/14 trazodone 50 mg tablet 50 mg PO DAILY Anxiety 11/18/14 aspirin 81 mg tablet,delayed release 81 mg PO .COMPLEX heart 10/01/23 rosuvastatin 20 mg tablet 20 mg PO QHS cholesterol 02/21/24 furosemide 20 mg tablet 20 mg PO QDAY PRN for 2lb weight gain 06/13/24 escitalopram oxalate 5 mg tablet 5 mg PO QDAY Mood 11/28/24 polyethylene glycol 3350 17 gram/dose oral powder (Miralax) 17 g PO DAILY Constipation 11/28/24 lamotrigine 100 mg tablet 100 mg PO QDAY Anxiety 01/23/25 ferrous sulfate 325 mg (65 mg iron) tablet (Feosol) 325 mg PO QDAY Supplement 02/13/25 linaclotide 145 mcg capsule (Linzess) 145 mcg PO QAM Constipation #60 caps 02/14/25 deutetrabenazine 6 mg tablet,extended release 24 hr (Austedo XR) 6 mg PO DAILY involuntary Movements 04/19/25 oxycodone 5 mg tablet 5 mg PO Q6H PRN PRN Pain Score 6-10 7 days #28 tabs 04/30/25 pantoprazole 40 mg tablet,delayed release 40 mg PO DAILY 30 days #30 tabs 04/30/25 baclofen 5 mg tablet 5 mg PO DAILY SPASCITY 05/29/25 docusate sodium 100 mg capsule 100 mg PO DAILY CONSTIPATION 05/29/25 metformin 500 mg tablet 500 mg PO BID Diabetes 05/29/25 ondansetron 4 mg disintegrating tablet 4 mg PO Q8H #30 tabs 05/30/25 phenazopyridine 100 mg tablet 100 mg PO TID PRN PRN pain 06/02/25 hyoscyamine sulfate 0.125 mg tablet 0.125 mg PO TID PRN dyspepsia #90 tabs 06/04/25 levofloxacin 500 mg tablet 500 mg PO DAILY@0600 2 days #2 tabs 06/06/25 Physical Exam Narrative Seen and examined. Patient is stated that she has chronic cough. Hypoxia has resolved. No fever. Physical exam General: Alert, Oriented x3, Cooperative HEENT: Atraumatic, PERRLA, EOMI, Normocephalic. Oral: No Gingival or Mucosal Lesions/ Ulcerations Neck: Supple, No JVD, Negative Carotid Bruits Chest wall/Lungs: Air entry diminished in bilateral lung bases. No crepitation/rhonchi Cardiovascular: Regular rate and rhythm, Normal S1,S2, No M/G/R Abdomen: Bowel Sounds Present, Soft, Non Tender, Non-Distended : No dysuria. No renal angle tenderness. No suprapubic tenderness. Extremities: No edema, Capillary Refill Less than 3 Seconds Skin: No rashes, No breakdown Musculoskeletal: No Tenderness to Palpation of Joints or Extremities Neurological: Cranial nerves II-XII grossly intact, DTR 2+/4. No acute focal neurological deficit. Psych/Mental Status: Flat affect, mild depression. Weight / BMI Weight Weight: 128 lb 4.944 oz Body Mass Index (BMI) 19.5 ABG / Lab / Microbiology Data 06/04/25 13:45 06/02/25 10:45 Microbiology: Microbiology 06/02/25 13:40 Blood Culture (Wb) - Right Hand Blood Culture - Preliminary No growth in 48 hours. 06/02/25 13:42 Blood Culture (Wb) - Anticubital Right Blood Culture - Preliminary No growth in 48 hours. 06/02/25 14:13 Mucosa - Nasopharyngeal Respiratory Panel (PCR) - Final 06/02/25 13:03 Mucosa - Nose SARS-CoV-2, Influenza & RSV (PCR) - Final D/C Instructions Weight Bearing Status: Weight bearing as tolerated Call your doctor if you observe: Fever of 101 or Higher, Coldness, Increased Pain, Numbness or Tingling, Change in Color, Inability to urinate, Inability to have a bowel movement, Shortness of breath, Dizziness, Fainting spells, Swelling in the ankles, Chest pain, Prolonged hiccupping, Increased palpitations (irregular heartbeat) and Calf discomfort DC O2, CPAP, BIPAP Needs Home O2 Discharge instructions: No When: IN 2 WEEKS Meaningful Use Info Meaningful Use Meaningful Use Diagnoses (Choose all that apply): None applicable Discharge Plan Admission Admit Date/Time: 06/02/25 13:36 Primary Reason for Your Visit: Community-acquired pneumonia Attending Provider: Ganesh Kiran Primary Care Provider: Marci Nuñez Consulting Providers: Ben Johnson Discharge Orders/Prescriptions Prescriptions: New levofloxacin 500 mg Tablet 500 mg PO DAILY@0600 2 Days Qty: 2 0RF Continued furosemide 20 mg tablet 20 mg PO QDAY PRN (Reason: for 2lb weight gain) metformin 500 mg tablet 500 mg PO BID lamotrigine 100 mg tablet 100 mg PO QDAY escitalopram oxalate 5 mg tablet 5 mg PO QDAY polyethylene glycol 3350 [Miralax] 17 gram/dose powder 17 g PO DAILY docusate sodium 100 mg capsule 100 mg PO DAILY Patient Comments: stopped 05/30/25 baclofen 5 mg tablet 5 mg PO DAILY Patient Comments: PRESCRIPTION FOR 4 TIMES DAILY ferrous sulfate [Feosol] 325 mg (65 mg iron) tablet 325 mg PO QDAY Linzess 145 mcg capsule 145 mcg PO QAM Qty: 60 2RF Patient Comments: stopped 05/30/25 ondansetron 4 mg tablet,disintegrating 4 mg PO Q8H Qty: 30 3RF trazodone 50 MG tablet 50 mg PO DAILY clonazepam 1 MG tablet 1 mg PO QHS aspirin 81 mg tablet,delayed release (DR/EC) 81 mg PO .COMPLEX Rx Instructions: 81 mg orally EVERY OTHER DAY; rosuvastatin 20 mg tablet 20 mg PO QHS pantoprazole 40 mg Tablet,Delayed Release (Dr/Ec) 40 mg PO DAILY 30 Days Qty: 30 0RF oxycodone 5 mg Tablet 5 mg PO Q6H PRN PRN (Reason: Pain Score 6-10) 7 Days Qty: 28 0RF Austedo XR 6 mg tablet extended release 24 hr 6 mg PO DAILY Patient Comments: stopped 06/02/25 phenazopyridine 100 mg tablet 100 mg PO TID PRN PRN (Reason: pain) hyoscyamine sulfate 0.125 mg tablet 0.125 mg PO TID PRN (Reason: dyspepsia) Qty: 90 2RF Referrals / Follow Up: Marci Nuñez DO [Primary Care Provider] - Lluvia Kilpatrick CASINO WORKER-C [Med Staff - [facility] Practice Prof] - Within 1 Month (For COPD evaluation) Disposition Disposition (needs filled in before D/C Order can be placed): Home, Self Care Charges/Coding Visit Charges Inpatient E&M: 06363 Disch Hosp >30min
--- NOTE | 2025-06-06 13:39 | PCM.PN.HOSP ---
Objective Data Objective Data Vital Signs: Vital Signs Temp Pulse Resp BP Pulse Ox O2 Del Method O2 Flow Rate 98.5 F 81 16 143/63 H 92 Room Air 95 06/06/25 10:03 06/06/25 12:18 06/06/25 12:18 06/06/25 10:03 06/06/25 12:18 06/06/25 12:18 06/06/25 10:00 Oxygen Flow Rate (L/min) 95 Oxygen Delivery Method Room Air Weight: 128 lb 4.944 oz Body Mass Index (BMI) 19.5 Intake & Output: Intake and Output for Last 24 Hours 06/04/25 06/05/25 06/06/25 23:59 23:59 23:59 Intake Total 300 / 300 600 / 600 Balance 300 / 300 600 / 600 Lab / Micro Data 06/04/25 13:45 06/02/25 10:45 Micro: Microbiology 06/02/25 13:40 Blood Culture (Wb) - Right Hand Blood Culture - Preliminary No growth in 48 hours. 06/02/25 13:42 Blood Culture (Wb) - Anticubital Right Blood Culture - Preliminary No growth in 48 hours. 06/02/25 14:13 Mucosa - Nasopharyngeal Respiratory Panel (PCR) - Final 06/02/25 13:03 Mucosa - Nose SARS-CoV-2, Influenza & RSV (PCR) - Final Physical Exam Narrative Seen and examined. Patient is stated that she has chronic cough. Hypoxia has resolved. No fever. Patient continued to have nausea and vomiting despite Zofran. Reglan added Physical exam General: Alert, Oriented x3, Cooperative HEENT: Atraumatic, PERRLA, EOMI, Normocephalic. Oral: No Gingival or Mucosal Lesions/ Ulcerations Neck: Supple, No JVD, Negative Carotid Bruits Chest wall/Lungs: Air entry diminished in bilateral lung bases. No crepitation/rhonchi Cardiovascular: Regular rate and rhythm, Normal S1,S2, No M/G/R Abdomen: Bowel Sounds Present, Soft, Non Tender, Non-Distended : No dysuria. No renal angle tenderness. No suprapubic tenderness. Extremities: No edema, Capillary Refill Less than 3 Seconds Skin: No rashes, No breakdown Musculoskeletal: No Tenderness to Palpation of Joints or Extremities Neurological: Cranial nerves II-XII grossly intact, DTR 2+/4. No acute focal neurological deficit. Psych/Mental Status: Flat affect, mild depression. Assessment & Plan Assessment/Plan (1) Pneumonia: (2) Dyspnea: PLAN: Plan 70-year-old female admitted for shortness of breath and abdominal pain. Her pulse ox was 82% on room air at home. No chest pain. CTA was negative for PE but found to have pneumonia. She has mild chronic cough. 1. Bilateral community-acquired pneumonia-patient's chest CTA shows groundglass appearance into the areas of the right middle and lower lobes and left lower lobe tree-in-bud opacity compatible with pneumonitis/pneumonia. Patient told me that she has chronic cough for long time but no fever or chills. Patient had 5 days of antibiotics while here discharged on 2 more days of levofloxacin. Advised to follow-up in pulmonary clinic for PFT. 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 EGD 04/25/2025 Impression: - Normal esophagus. - No gross lesions in the entire stomach. - Acquired duodenal stenosis. Biopsied. Colonoscopy Impression: - Localized moderate inflammation was found in the rectum secondary to colitis. Biopsied. 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 Biopsied. - Diverticulosis in the recto-sigmoid colon, in the sigmoid colon, in the transverse colon and in the ascending colon. - The examined portion of the ileum was normal. GI consulted. #2 elevated beta natruretic peptide-possible mild congestive heart failure-blood pressure on lower side therefore furosemide was stopped while here. # 3. Hypoxia due to bilateral pneumonia: Hypoxia has resolved. Home oxygen qualification test ordered #4 Type 2 diabetes-patient on 1800-calorie diet, continue home metformin #5 cerebral palsy-complicates care, management, recovery, and prognosis #6 chronic abdominal pain/irritable bowel syndrome/history of ischemic colitis, chronic problem: Patient follows Dr. Lockett in GI office. Celiac test ordered at time of admission is still pending. Follow-up in GI office Persistent nausea and vomiting. #7 chronic anxiety/depression-patient will remain on her outpatient medications. Discharge medication reconciliation done. Discharge follow-up instructions completed. Discharge process discussed with the patient and all questions were answered to patient's satisfaction. Follow with PCP in 1 to 2 weeks Total time spent, exact 35 minutes on discharge meds reconciliation, examination, coordination of care with nurses and ancillary staff, review of imaging and blood test and discussion with the patient on follow-up instructions. Charges/Coding Visit Charges Inpatient E&M: 30797 Subs Hosp L2
--- NOTE | 2025-06-06 16:39 | CASEMGMT ---
RN CM made aware that pt is requesting SNF. Therapies ordered. Spoke with PT regarding eval. RN CM into pt room, pt sitting up in chair and at bedside. Patient and were provided a list of SNF providers including quality and resource use data and consistent with the patient?s preferred geographic region, medical needs, and insurance network were provided from the [employer] Guide. Pt and to review overnight. Requested to choose top 3 preferences and RN CM to follow up tomorrow.
[2025-06-07] VITALS (13 sets, daily range): BP systolic 102–136; BP diastolic 51–72; PULSE 70–82; RESP 16–20; TEMP 36.6–37; O2SAT 86–96; BMI 19.5
--- NOTE | 2025-06-07 10:29 | CASEMGMT ---
Addendum entered by Sita Mcbride 06/07/25 12:29: Referral sent to [facility] via [facility]. Original Note: RN ALEJANDRO NOTE: RN CM to room. Pt resting in bed, nauseous, nurse @ bedside. in room. He provided the following 3 SNF preferences: 1) [facility] 2) [facility] 3) [facility] Juni MARTINES RN CM
[2025-06-07] MEDS: Heparin Injection (Vial) 5,000 UNIT/ML VIAL 5000 UNIT SC (10:47)
--- NOTE | 2025-06-07 12:23 | NURSING ---
Pt sent for procedure
--- NOTE | 2025-06-07 13:00 | EX.PCM.CON.G ---
HPI Consult Data Date of Consult: 06/07/25 HPI Narrative Reason for Consultation: Abdominal pain with nausea vomiting HPI Narrative: BETTY CARO, is a 70 F who presented to [facility] [place] after her physician sent her in due to an elevated D-dimer that he had collected as an outpatient. Patient also complained of shortness of breath, abdominal pain, and nausea. She was diagnosed with CHF and commune acquired pneumonia. She was treated up appropriately. However she has not been able to keep any solid foods down. She did undergo an EGD by myself and was discovered to have duodenal stenosis. I was 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 [facility] Medical History Pneumonia Dyspnea Back pain History of Holter monitoring History of stress test History of echocardiogram Cardiology follow-up encounter Ischemic colitis History of left heart catheterization History of mechanical ventilation Cardiogenic pulmonary edema Acute hypoxic respiratory failure Multiple lung nodules Major depressive disorder Left bundle branch block NSTEMI (non-ST elevated myocardial infarction) Diabetic peripheral vascular disease Diabetic nephropathy Chronic kidney disease (CKD) Bleeding ulcer Dyslipidemia Chronic systolic heart failure Pacemaker Congestive heart failure (CHF) Cerebral palsy Anxiety and depression Heart failure with reduced ejection fraction GERD (gastroesophageal reflux disease) Insomnia Transient ischemic attack AV node dysfunction Ischemic cardiomyopathy Presence of biventricular implantable cardioverter-defibrillator Ulcer Restless legs High cholesterol Anxiety Former smoker ICD (implantable cardioverter-defibrillator) in place Coronary artery disease CVA (cerebral vascular accident) PFO (patent foramen ovale) Cardiac resynchronization therapy defibrillator (CARDIOLOGY FELLOW-D) in place Myocarditis Hyperlipidemia Hypertension Home Medications ?Medication ?Instructions ?Recorded ?Last Taken ?Type clonazepam 1 mg tablet 1 mg PO QHS anxiety 11/18/14 06/01/25 History trazodone 50 mg tablet 50 mg PO DAILY Anxiety 11/18/14 06/01/25 History aspirin 81 mg tablet,delayed 81 mg PO .COMPLEX heart 10/01/23 06/01/25 History release rosuvastatin 20 mg tablet 20 mg PO QHS cholesterol 02/21/24 06/01/25 History furosemide 20 mg tablet 20 mg PO QDAY PRN for 2lb weight 06/13/24 06/19/24 History gain escitalopram oxalate 5 mg tablet 5 mg PO QDAY Mood 11/28/24 06/01/25 History polyethylene glycol 3350 17 17 g PO DAILY Constipation 11/28/24 06/01/25 History gram/dose oral powder (Miralax) lamotrigine 100 mg tablet 100 mg PO QDAY Anxiety 01/23/25 06/02/25 History ferrous sulfate 325 mg (65 mg 325 mg PO QDAY Supplement 02/13/25 06/01/25 History iron) tablet (Feosol) linaclotide 145 mcg capsule 145 mcg PO QAM Constipation #60 02/14/25 Unknown Rx (Linzess) caps deutetrabenazine 6 mg 6 mg PO DAILY involuntary Movements 04/19/25 04/20/25 08:50 History tablet,extended release 24 hr (Austedo XR) oxycodone 5 mg tablet 5 mg PO Q6H PRN PRN Pain Score 04/30/25 Unknown Rx 6-10 7 days #28 tabs pantoprazole 40 mg tablet,delayed 40 mg PO DAILY 30 days #30 tabs 04/30/25 06/01/25 Rx release baclofen 5 mg tablet 5 mg PO DAILY SPASCITY 05/29/25 06/01/25 History docusate sodium 100 mg capsule 100 mg PO DAILY CONSTIPATION 05/29/25 Unknown History metformin 500 mg tablet 500 mg PO BID Diabetes 05/29/25 06/01/25 History ondansetron 4 mg disintegrating 4 mg PO Q8H #30 tabs 05/30/25 06/01/25 Rx tablet phenazopyridine 100 mg tablet 100 mg PO TID PRN PRN pain 06/02/25 06/02/25 History hyoscyamine sulfate 0.125 mg tablet 0.125 mg PO TID PRN dyspepsia #90 06/04/25 Unknown Rx tabs levofloxacin 500 mg tablet 500 mg PO DAILY@0600 2 days #2 tabs 06/06/25 Unknown Rx Allergy/AdvReac Type Severity Reaction Status Date / Time No Known Allergies Allergy Verified 06/02/25 10:33 Family History Father Heart disease Myocardial infarction Mother Anxiety and depression Suicide and self-inflicted injury from suicide age 52. Surgical History History of cardiac catheterization Presence of stent in coronary artery History of bilateral cataract extraction History of skin surgery S/P colon polypectomy History of cardiac defibrillator placement History of cholecystectomy History of coronary artery stent placement Social History household members: spouse Smoking Status: Former smoker how long ago did patient quit smokin-1.5 ppd from teen until quit in 2008. alcohol intake: never substance use type: does not use caffeine: Yes seatbelt use: always do you feel safe at home: Yes additional social history: - Cuate FUENTES Constitutional Constitutional: Denies fatigue, fever(s), poor appetite, weight gain or weight loss Gastrointestinal Gastrointestinal: Denies belching, bloating, change in bowel habits, change in stool character, chewing difficulty, coffee ground emesis, constipation, cramping, diarrhea, dyspepsia, dysphagia, early satiety, excessive flatus, fecal incontinence, heartburn, hematemesis, hematochezia, hemorrhoids, loose stools, melena, nausea, odynophagia, rectal bleeding, tenesmus, vomiting or weight changes Physical Exam Const alert, oriented x3, no apparent distress and healthy appearing General Appearance: cooperative GI normal to inspection, nondistended, normoactive bowel sounds, soft to palpation, non-tender and non-distended Percussion: normal to percussion Rectal Exam: deferred Lab / Micro Data 06/04/25 13:45 06/02/25 10:45 Labs: Laboratory Results - last 24 hr 06/07/25 11:12: POC Glucose 101 Assessment & Plan Assessment/Plan (1) Duodenal stenosis: PLAN: 70-year-old with history of nausea , vomiting and gastric outlet obstruction secondary to duodenal stenosis. Previous biopsies of duodenal stones did not reveal any malignancy. It was thought to be secondary to medicines. She will undergo an EGD with possible dilation and possible stent placement. She was explained alternatives, risk and benefits cleanout with standard bleeding, p.o., septal, perforation, need for emergent . She will have an ASA of 3. Charges/Coding Visit Charges Inpatient E&M: 66191 Init Hosp L3
--- NOTE | 2025-06-07 13:10 | PCM.PRE.AN2 ---
ASA Classification* ASA Classification ASA Classification: 3 Assessment & Plan Anesthesia* Anesthesia Assessment Anesthesia Assessment: Discussed sedation and/or anesthesia options, risks, benefits, and alternatives with patient/parents/legal guardian/POA. Questions invited. The patient/parents/legal guardian/POA seems to understand and agrees to proceed with anesthesia plan. Reviewed the physical assessment, medical history, allergy history and patient home medications list prior to surgery/procedure/anesthetic and documented any changes. Performed airway and anesthesia risk assessments. Anesthesia Type Anesthesia Type: MAC History Source History Obtained from:: Patient, Chart and Significant Other ( present in preop and assures that patient took only 1 eye drop of chocolate mild around 9:3 am ) Anesthesia Focused Assessment* Temperature: 98 F Pulse Rate: 79 Blood Pressure: 119/58 Respiratory Rate: 20 Pulse Ox: 93 Oxygen Delivery Method: Room Air Oxygen Flow Rate (L/min): 2 Airway Assessment Mouth opens: >3 cm Mallampati Score: II Teeth Condition: Dentures and Implants Neck Range of motion (ROM): Limited ROM Labs Anesthesia Preop lab: CBC WBC 6.3 K/mm3 (4.4-11.0) 06/04/25 13:45 06/04/25 RBC 3.30 M/mm3 (4.2-5.4) L 06/04/25 13:45 06/04/25 Hgb 10.2 g/dL (12.0-15.0) L 06/04/25 13:45 06/04/25 Hct 31.4 % (37-47) L 06/04/25 13:45 06/04/25 Plt Count 232 K/mm3 (150-450) 06/04/25 13:45 06/04/25 CHEMISTRY Potassium 3.8 mmol/L (3.3-5.1) 06/02/25 10:45 06/02/25 Sodium 137 mmol/L (133-145) 06/02/25 10:45 06/02/25 Magnesium 1.6 mg/dL (1.5-2.2) 04/19/25 03:45 04/19/25 Phosphorus 3.4 mg/dL (2.5-4.9) 07/04/24 07:41 07/04/24 BUN 19 mg/dL (4-19) 06/02/25 10:45 06/02/25 Creatinine 1.16 mg/dL (0.70-1.20) 06/02/25 10:45 06/02/25 Glucose 140 mg/dL (70-99) H 06/02/25 10:45 06/02/25 POC Glucose 101 mg/dL (74-106) 06/07/25 11:12 06/07/25 TSH 4.050 uIU/mL (0.300-4.200) 04/19/25 03:45 04/19/25 COAG PT 13.3 SECONDS (11.7-14.9) 09/09/24 14:50 09/09/24 Pre-Assessment Diagnosis/Proposed Procedure Planned Operative Procedure(s): EGD with duodenal stent Anesthesia History 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 When Was Last Pacemaker Check 202211/13/24 13:46 QUESTION #4 FULL TEXT: You/Your Family Experience fever (hyperthermia) with Anesthesia Last Oral Intake Last Oral intake: Last Oral Intake NPO since Meds taken in AM with sips of water? Meds patient instructed to take am of surgery PONV PONV - mathematics department chair: PONV - mathematics department chair Female HX of Motion Sickness HX of N/V After Surgery Non-Smoker Duration of Surgery greater than 60 minutes Number of Risk Factors PONV Score Height & Weight Height & Weight: Anesthesia: Height & Weight Height 5 ft 8 in 06/07/25 10:08 Weight: 58.2 kg 06/07/25 10:08 Body Mass Index (BMI) 19.5 06/02/25 14:27 Respiratory Assessment Respiratory Assessment - mathematics department chair: Respiratory Tract Infection Hx - mathematics department chair Hx Respiratory Tract Infection No 04/23/25 16:09 STOP Sleep Apnea STOP Sleep Apnea - mathematics department chair: STOP Sleep Apnea - mathematics department chair Hx Hypertension No 06/06/25 16:07 Hx Sleep Apnea No 06/02/25 14:27 CPAP No 04/25/25 07:55 BIPAP No 04/23/25 16:09 Do you snore loudly (louder No 06/02/25 14:27 than talking or can be heard Do you often feel tired/ Yes 06/02/25 14:27 fatigued/ sleepy during daytime? Has anyone observed you stop No 06/02/25 14:27 breathing during sleep? STOP Results Negative 06/02/25 14:27 QUESTION #5 FULL TEXT : Do you snore loudly (louder than talking or can be heard through closed doors)? 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 Specify any problems Hx of Preganancy in last 3 No 06/02/25 14:27 Months Nurse Filling Out Transfusion [id number] 06/02/25 14:27 & Questions: Date: 06/02/25 06/02/25 14:27 Time: 15:11 06/02/25 14:27 Patient unable to answer at this time (ie. confused, unrespo /Reproduction History /Reproductive History - mathematics department chair: /Reproductive Hx- mathematics department chair Hx Now Gestational Age (in weeks): EDC: Hx Hx Para Hx Section SAB No 04/23/25 16:09 Active Medications Active Medications: Current Medications Generic Name Dose Route Start Last Admin Trade Name Freq PRN Reason Stop Dose Admin Albuterol Sulfate 2.5 mg 06/02/25 14:27 Albuterol 2.5 Mg/3 Ml Vial.Neb. INHALATION Q2H PRN PRN SOB &/OR WHEEZING Albuterol/Ipratropium 3 ml 06/06/25 00:45 06/06/25 19:30 Ipratropium/Albuterol Sulfate 3 Ml Ampul.Neb INHALATION 3 ml Q6HWA.RT VERONA Administration Aspirin 81 mg 06/02/25 14:27 06/06/25 10:18 Aspirin E.C. 81 Mg Tablet PO 81 mg QODAY VERONA Administration Atorvastatin Calcium 40 mg 06/02/25 22:00 06/06/25 21:16 Atorvastatin Calcium 40 Mg Tablet PO 40 mg QHS VERONA Administration Clonazepam 1 mg 06/02/25 22:00 06/05/25 22:28 Clonazepam 1 Mg Tablet PO 1 mg QHS VERONA Administration Ferrous Sulfate 325 mg 06/03/25 12:00 06/07/25 12:42 Ferrous Sulfate 325 Mg Tablet PO Not Given DAILY@1200 [facility] Heparin Sodium (Porcine) 5,000 unit 06/02/25 22:00 06/07/25 10:47 Heparin Injection (Vial) 5,000 Unit/Ml Vial SC 5,000 unit Q12 VERONA Administration Hyoscyamine Sulfate 0.125 mg 06/02/25 14:54 06/05/25 09:51 Hyoscyamine Sulfate 0.125 Mg Tablet PO 0.125 mg TID PRN Administration dyspepsia Sodium Chloride 250 mls @ 15 mls/hr 06/02/25 15:17 IV .[id number] PRN Saline Flush Sodium Chloride 250 mls @ 15 mls/hr 06/02/25 15:17 IV .[id number] PRN Additional IVPB Infusion Sodium Chloride 250 mls @ 15 mls/hr 06/03/25 16:15 IV .[id number] PRN Saline Flush Sodium Chloride 250 mls @ 15 mls/hr 06/03/25 16:15 IV .[id number] PRN Additional IVPB Infusion Lactated Ringer's 1,000 mls @ 15 mls/hr 06/07/25 13:15 IV .Q48H VERONA Lamotrigine 100 mg 06/02/25 14:27 06/06/25 10:18 Lamotrigine 100 Mg Tablet PO 100 mg DAILY VERONA Administration Levofloxacin 500 mg 06/05/25 06:00 06/07/25 05:46 Levofloxacin 500 Mg Tablet PO 500 mg DAILY@0600 VERONA Administration Metformin HCl 500 mg 06/02/25 22:00 06/07/25 10:38 Metformin Hcl 500 Mg Tablet PO Not Given BID VERONA Metoclopramide HCl 5 mg 06/06/25 16:49 06/07/25 10:04 Metoclopramide 10 Mg/2 Ml Vial IV 5 mg Q6H PRN PRN Administration NAUSEA/VOMITING Morphine Sulfate 2 mg 06/07/25 10:26 06/07/25 10:47 Morphine 2 Mg/Ml Syringe IV 2 mg Q4H PRN PRN Administration Pain Score 6-10 or Pre PT/OT Ondansetron HCl 4 mg 06/02/25 14:27 06/07/25 08:00 Ondansetron 4 Mg/2 Ml Vial IV 4 mg Q8H PRN PRN Administration NAUSEA/VOMITING Ondansetron HCl 4 mg 06/03/25 06:00 06/07/25 05:46 Ondansetron Odt 4 Mg Tablet PO 4 mg Q8 VERONA Administration Oxycodone HCl 5 mg 06/02/25 14:27 06/07/25 08:00 Oxycodone 5 Mg Tablet PO 5 mg Q6H PRN PRN Administration Pain Score 6-10 Pantoprazole Sodium 40 mg 06/03/25 10:00 06/07/25 10:38 Pantoprazole Sodium 40 Mg Tablet PO Not Given DAILY VERONA Phenazopyridine HCl 100 mg 06/02/25 17:09 06/07/25 10:00 Phenazopyridine 95 Mg Tablet PO 100 mg TID PRN PRN Administration pain Polyethylene Glycol 17 gm 06/03/25 10:00 06/07/25 08:48 Polyethylene Glycol 3350 17 Gm Packet PO Not Given DAILY VERONA Trazodone HCl 50 mg 06/04/25 22:00 06/06/25 21:16 Trazodone 50 Mg Tablet PO 50 mg QHS VERONA Administration PFSH Medical History Pneumonia Dyspnea Back pain History of Holter monitoring History of stress test History of echocardiogram Cardiology follow-up encounter Ischemic colitis History of left heart catheterization History of mechanical ventilation Cardiogenic pulmonary edema Acute hypoxic respiratory failure Multiple lung nodules Major depressive disorder Left bundle branch block NSTEMI (non-ST elevated myocardial infarction) Diabetic peripheral vascular disease Diabetic nephropathy Chronic kidney disease (CKD) Bleeding ulcer Dyslipidemia Chronic systolic heart failure Pacemaker Congestive heart failure (CHF) Cerebral palsy Anxiety and depression Heart failure with reduced ejection fraction GERD (gastroesophageal reflux disease) Insomnia Transient ischemic attack AV node dysfunction Ischemic cardiomyopathy Presence of biventricular implantable cardioverter-defibrillator Ulcer Restless legs High cholesterol Anxiety Former smoker ICD (implantable cardioverter-defibrillator) in place Coronary artery disease CVA (cerebral vascular accident) PFO (patent foramen ovale) Cardiac resynchronization therapy defibrillator (PROCUREMENT INSPECTOR-D) in place Myocarditis Hyperlipidemia Hypertension Home Medications ?Medication ?Instructions ?Recorded ?Last Taken ?Type clonazepam 1 mg tablet 1 mg PO QHS anxiety 11/18/14 06/01/25 History trazodone 50 mg tablet 50 mg PO DAILY Anxiety 11/18/14 06/01/25 History aspirin 81 mg tablet,delayed 81 mg PO .COMPLEX heart 10/01/23 06/01/25 History release rosuvastatin 20 mg tablet 20 mg PO QHS cholesterol 02/21/24 06/01/25 History furosemide 20 mg tablet 20 mg PO QDAY PRN for 2lb weight 06/13/24 06/19/24 History gain escitalopram oxalate 5 mg tablet 5 mg PO QDAY Mood 11/28/24 06/01/25 History polyethylene glycol 3350 17 17 g PO DAILY Constipation 11/28/24 06/01/25 History gram/dose oral powder (Miralax) lamotrigine 100 mg tablet 100 mg PO QDAY Anxiety 01/23/25 06/02/25 History ferrous sulfate 325 mg (65 mg 325 mg PO QDAY Supplement 02/13/25 06/01/25 History iron) tablet (Feosol) linaclotide 145 mcg capsule 145 mcg PO QAM Constipation #60 02/14/25 Unknown Rx (Linzess) caps deutetrabenazine 6 mg 6 mg PO DAILY involuntary Movements 04/19/25 04/20/25 08:50 History tablet,extended release 24 hr (Austedo XR) oxycodone 5 mg tablet 5 mg PO Q6H PRN PRN Pain Score 04/30/25 Unknown Rx 6-10 7 days #28 tabs pantoprazole 40 mg tablet,delayed 40 mg PO DAILY 30 days #30 tabs 04/30/25 06/01/25 Rx release baclofen 5 mg tablet 5 mg PO DAILY SPASCITY 05/29/25 06/01/25 History docusate sodium 100 mg capsule 100 mg PO DAILY CONSTIPATION 05/29/25 Unknown History metformin 500 mg tablet 500 mg PO BID Diabetes 05/29/25 06/01/25 History ondansetron 4 mg disintegrating 4 mg PO Q8H #30 tabs 05/30/25 06/01/25 Rx tablet phenazopyridine 100 mg tablet 100 mg PO TID PRN PRN pain 06/02/25 06/02/25 History hyoscyamine sulfate 0.125 mg tablet 0.125 mg PO TID PRN dyspepsia #90 06/04/25 Unknown Rx tabs levofloxacin 500 mg tablet 500 mg PO DAILY@0600 2 days #2 tabs 06/06/25 Unknown Rx Allergy/AdvReac Type Severity Reaction Status Date / Time No Known Allergies Allergy Verified 06/02/25 10:33 Family History Father Heart disease Myocardial infarction Mother Anxiety and depression Suicide and self-inflicted injury from suicide age 52. Surgical History History of cardiac catheterization Presence of stent in coronary artery History of bilateral cataract extraction History of skin surgery S/P colon polypectomy History of cardiac defibrillator placement History of cholecystectomy History of coronary artery stent placement Social History household members: spouse Smoking Status: Former smoker how long ago did patient quit smokin-1.5 ppd from teen until quit in 2008. alcohol intake: never substance use type: does not use caffeine: Yes seatbelt use: always do you feel safe at home: Yes additional social history: - Cuate Review of Systems (Anesthesia) ROS Narrative System reviewed and no additional complaints, except as documented.
[2025-06-07] MEDS: Lactated Ringers 1,000 ML 15 ML IV (13:11)
--- NOTE | 2025-06-07 13:55 | OP.EGD_ITS ---
Patient Name: Mansi Espino Procedure Date: 06/07/2025 12:55 PM Date of : 1955 Age: 70 Procedure: Upper GI endoscopy Indications: Epigastric abdominal pain Providers: Shan Lockett DO Medicines: Monitored Anesthesia Care Patient Profile: This is a 70 year old female. Refer to note in patient chart for documentation of history and physical. Patient has symptoms of acute epigastric abdominal pain. Complications: No immediate complications. Procedure: Pre-Anesthesia Assessment: - Prior to the procedure, a History and Physical was performed, and patient medications and allergies were reviewed. The patient is competent. The risks and benefits of the procedure and the sedation options and risks were discussed with the patient. All questions were answered and informed consent was obtained. Patient identification and proposed procedure were verified by the physician in the pre-procedure area. Mental Status Examination: alert and oriented. Respiratory Examination: clear to auscultation. CV Examination: normal. Prophylactic Antibiotics: The patient does not require prophylactic antibiotics. Prior Anticoagulants: The patient has taken no anticoagulant or antiplatelet agents. ASA Grade Assessment: II - A patient with mild systemic disease. After reviewing the risks and benefits, the patient was deemed in satisfactory condition to undergo the procedure. The anesthesia plan was to use monitored anesthesia care (MAC). Immediately prior to administration of medications, the patient was re-assessed for adequacy to receive sedatives. The heart rate, respiratory rate, oxygen saturations, blood pressure, adequacy of pulmonary ventilation, and response to care were monitored throughout the procedure. The physical status of the patient was re-assessed after the procedure. After obtaining informed consent, the endoscope was passed under direct vision. Throughout the procedure, the patient's blood pressure, pulse, and oxygen saturations were monitored continuously. The gastroscope was introduced through the mouth, and advanced to the third part of the duodenum. Small bowel enteroscopy was deemed necessary. The upper GI endoscopy was accomplished without difficulty. The patient tolerated the procedure well. Scope In: 1:38:44 PM Scope Out: 1:45:54 PM Total Procedure Duration Time 0 hours 7 minutes 10 seconds Findings: The examined esophagus was normal. Suspect gastroparesis due to absence of peristalsis and patient symptoms. An acquired benign-appearing, intrinsic severe stenosis was found in the first portion of the duodenum and was traversed after dilation. A TTS dilator was passed through the scope. Dilation with a 15-16.5-18 mm pyloric balloon dilator was performed. The dilation site was examined following endoscope reinsertion and showed moderate improvement in luminal narrowing. Estimated blood loss was minimal. Impression: - Normal esophagus. - Gastroparesis. - Acquired duodenal stenosis. Dilated. - No specimens collected. Recommendation: - Return patient to [facility] for [facility] care. - Advance diet as tolerated. - Continue present medications. Procedure Code(s): --- Professional --- 47093, Esophagogastroduodenoscopy, flexible, transoral; with dilation of gastric/duodenal stricture(s) (eg, balloon, bougie) CPT copyright 2021 [employer]. All rights reserved. The codes documented in this report are preliminary and upon inclusion special educator review may be revised to meet current compliance requirements. Shan Lockett DO 06/07/2025 1:55:26 PM This report has been signed electronically. Number of Addenda: 0 Note Initiated On: 06/07/2025 12:55 PM
--- NOTE | 2025-06-07 13:57 | PCM.POST.ANE ---
Anesthesia: Postop Eval I Current Vital Signs Temperature: 98.4 F Pulse Rate: 70 Blood Pressure: 120/51 Respiratory Rate: 16 Pulse Ox: 93 Oxygen Delivery Method: Room Air Assessment Airway patent: Yes Spontaneous unlabored respirations: Yes Mental status: Awake and Calm nausea: No Vomiting: No Anesthesia Complication: No Fluid Hydration Crystalloid volume administer (ml): 400 Total IV fluid infused: 400 Progress Note Anesthesia document: Postop Eval 1 completed: Yes
--- NOTE | 2025-06-07 15:33 | PCM.PN.HOSP ---
Objective Data Objective Data Vital Signs: Vital Signs Temp Pulse Resp BP Pulse Ox O2 Del Method O2 Flow Rate 97.9 F 82 18 134/70 H 92 Nasal Cannula 2 06/07/25 14:40 06/07/25 14:40 06/07/25 14:40 06/07/25 14:40 06/07/25 14:40 06/07/25 14:54 06/07/25 14:54 Oxygen Flow Rate (L/min) 2 Oxygen Delivery Method Nasal Cannula Weight: 128 lb 4.944 oz Body Mass Index (BMI) 19.5 Intake & Output: Intake and Output for Last 24 Hours 06/05/25 06/06/25 06/07/25 23:59 23:59 23:59 Intake Total 600 / 600 26.5 / 26.5 Output Total 3 / 3 Balance 600 / 600 23.5 / 23.5 Lab / Micro Data 06/04/25 13:45 06/02/25 10:45 Labs: Laboratory Results - last 24 hr 06/07/25 11:12: POC Glucose 101 Micro: Microbiology 06/02/25 13:40 Blood Culture (Wb) - Right Hand Blood Culture - Preliminary No growth in 48 hours. 06/02/25 13:42 Blood Culture (Wb) - Anticubital Right Blood Culture - Preliminary No growth in 48 hours. 06/02/25 14:13 Mucosa - Nasopharyngeal Respiratory Panel (PCR) - Final 06/02/25 13:03 Mucosa - Nose SARS-CoV-2, Influenza & RSV (PCR) - Final Physical Exam Narrative Seen and examined. Patient still complain of right-sided abdominal pain. She is in laying on the right side with call in position. Plan for EGD today. Hypoxia has resolved. No fever. Patient continued to have nausea and vomiting despite Zofran. Reglan added Physical exam General: Alert, Oriented x3, Cooperative HEENT: Atraumatic, PERRLA, EOMI, Normocephalic. Oral: No Gingival or Mucosal Lesions/ Ulcerations Neck: Supple, No JVD, Negative Carotid Bruits Chest wall/Lungs: Air entry diminished in bilateral lung bases. No crepitation/rhonchi Cardiovascular: Regular rate and rhythm, Normal S1,S2, No M/G/R Abdomen: Bowel Sounds Present, Soft, Non Tender, Non-Distended. Right-sided voluntary guarding : No dysuria. No renal angle tenderness. No suprapubic tenderness. Extremities: No edema, Capillary Refill Less than 3 Seconds Skin: No rashes, No breakdown Musculoskeletal: No Tenderness to Palpation of Joints or Extremities Neurological: Cranial nerves II-XII grossly intact, DTR 2+/4. No acute focal neurological deficit. Psych/Mental Status: Flat affect, mild depression. Assessment & Plan Assessment/Plan (1) Pneumonia: (2) Dyspnea: PLAN: Plan 70-year-old female admitted for shortness of breath and abdominal pain. Her pulse ox was 82% on room air at home. No chest pain. CTA was negative for PE but found to have pneumonia. She has mild chronic cough. 1. Bilateral community-acquired pneumonia-patient's chest CTA shows groundglass appearance into the areas of the right middle and lower lobes and left lower lobe tree-in-bud opacity compatible with pneumonitis/pneumonia. Patient told me that she has chronic cough for long time but no fever or chills. Patient had 5 days of antibiotics while here discharged on 2 more days of levofloxacin. Advised to follow-up in pulmonary clinic for PFT. 06/06: Patient's further said she had outside PFT in [place] by research environmental engineer. 06/07: On levofloxacin. EGD 04/25/2025 Impression: - Normal esophagus. - No gross lesions in the entire stomach. - Acquired duodenal stenosis. Biopsied. Colonoscopy Impression: - Localized moderate inflammation was found in the rectum secondary to colitis. Biopsied. 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 Biopsied. - Diverticulosis in the recto-sigmoid colon, in the sigmoid colon, in the transverse colon and in the ascending colon. - The examined portion of the ileum was normal. GI consulted. 06/07: EGD was done today. Advance diet as per tolerated Impression: - Normal esophagus. - Gastroparesis. - Acquired duodenal stenosis. Dilated. - No specimens collected. #2. Elevated beta natruretic peptide-possible mild congestive heart failure-blood pressure on lower side therefore furosemide was stopped while here. # 3. Hypoxia due to bilateral pneumonia: Hypoxia has resolved. Home oxygen qualification test ordered #4 Type 2 diabetes-patient on 1800-calorie diet, continue home metformin #5 cerebral palsy-complicates care, management, recovery, and prognosis #6 chronic abdominal pain/irritable bowel syndrome/history of ischemic colitis, chronic problem: Patient follows Dr. Lockett in GI office. Celiac test ordered at time of admission is still pending. Follow-up in GI office Persistent nausea and vomiting. #7 chronic anxiety/depression-patient will remain on her outpatient medications. Discharge plan: Patient has stated that that he wanted to go to rehab. Microbiology Past 72 Hours 06/02/25 13:40 Blood Culture (Wb) - Right Hand Blood Culture - Preliminary No growth in 48 hours. 06/02/25 13:42 Blood Culture (Wb) - Anticubital Right Blood Culture - Preliminary No growth in 48 hours. Laboratory Results 06/07/25 11:12: POC Glucose 101 Charges/Coding Visit Charges Inpatient E&M: 43155 Subs Hosp L2
--- NOTE | 2025-06-07 16:28 | PCM.POSTANE2 ---
Anesthesia Postop Eval I Sum Postop Eval Completion status Anesthesia document: Postop Eval 1 completed: Yes Anesthesia Postop Eval I Summary Anesthesia Postop Eval I Summary: Anesthesia Postop Eval I: Assessment Summary Airway patent Yes 06/07/25 13:58 [email or web address] Spontaneous unlabored Yes 06/07/25 13:58 [email or web address] respirations Mental status Awake,Calm 06/07/25 13:58 [email or web address] nausea No 06/07/25 13:58 [email or web address] Vomiting No 06/07/25 13:58 [email or web address] Anesthesia Postop Eval I: Fluid Summary Crystalloid volume administer 400 06/07/25 13:58 [email or web address] (ml) Colloids volume administered ( ml) Blood Product volume administered (ml) Total IV fluid infused 400 06/07/25 13:58 [email or web address] Anesthesia Postop Eval I: Summary Notes Anesthesia Complication No 06/07/25 13:58 [email or web address] Anesthesia Complication Comment: Post-operative progress note Anesthesia: Postop Eval II Evaluation Mental status: Awake and Calm Pain Level: 1 nausea: No Vomiting: No
[2025-06-08 05:31] VITALS: BP 138/75; PULSE 71; RESP 16; TEMP 36.6; O2SAT 97
[2025-06-08 06:07] LABS: Hematocrit 30.5 % (37-47); Hemoglobin 10.0 g/dL (12.0-15.0); Immature Granulocytes Count 0.010 X10^3/uL (0.0-0.0); Mean Corp Hgb Conc 32.8 g/dL (32-36); Mean Corpuscular Volume 93.0 fL (81-99); Mean Platelet Vol. 10.3 fl (6.2-12.0); NRBC Flagged by Analyzer 0 % (0-5); Platelet Count 232 K/mm3 (150-450); RBC Distribution Width CV 13.3 % (11.6-14.6); RBC Distribution Width SD 45.3 fl (35.1-43.9); Red Blood Count 3.28 M/mm3 (4.2-5.4); White Blood Count 3.6 K/mm3 (4.4-11.0)
[2025-06-08 06:46] LABS: Anion Gap 9 (5-15); BUN 13 mg/dL (4-19); BUN/Creat Ratio 13.6 RATIO (10-20); Calcium,Total 8.6 mg/dL (7.6-11.0); Carbon Dioxide 25.9 mmol/L (21.0-32.0); Chloride 102 mmol/L (98-108); Estimated Creatinine Clearance 47.68 ml/min (50-250); Glucose 115 mg/dL (70-99); Potassium 4.4 mmol/L (3.3-5.1)
[2025-06-08 08:08] LABS: Immunoglobulin A 350 mg/dL (64-422)
[2025-06-08 08:10] VITALS: BP 153/67; PULSE 77; RESP 22; TEMP 36.9; O2SAT 97
[2025-06-08] MEDS: Aspirin E.C. 81 MG Tablet PO (10:13)
[2025-06-08] MEDS: Heparin Injection (Vial) 5,000 UNIT/ML VIAL 5000 UNIT SC ×2 (10:13→20:50)
--- NOTE | 2025-06-08 10:37 | CASEMGMT ---
Per therapy, pt declined today. TANIA CM into pt room, discussed with pt dc goals. Pt states she does want to go to SNF for therapy as she does not feel she can return home. She is aware that she needs to participate in therapy for this to be approved by the insurance. Pt states she just needs to get her stomach under control. She states she will try to do therapy today.
--- NOTE | 2025-06-08 12:40 | CASEMGMT ---
Discharge Planning Asst. [facility] has accepted. Updates sent with request to submit for precert. Danielle Casey DC Planning Asst.
[2025-06-08 14:30] VITALS: BP 126/70; PULSE 84; RESP 18; TEMP 36.6; O2SAT 100
--- NOTE | 2025-06-08 16:24 | PCM.PN.HOSP ---
Objective Data Objective Data Vital Signs: Vital Signs Temp Pulse Resp BP Pulse Ox O2 Del Method O2 Flow Rate 98 F 84 18 126/70 H 100 Nasal Cannula 2 06/08/25 14:30 06/08/25 14:30 06/08/25 14:30 06/08/25 14:30 06/08/25 14:30 06/08/25 14:30 06/08/25 14:30 Oxygen Flow Rate (L/min) 2 Oxygen Delivery Method Nasal Cannula Weight: 128 lb 4.944 oz Body Mass Index (BMI) 19.5 Intake & Output: Intake and Output for Last 24 Hours 06/06/25 06/07/25 06/08/25 23:59 23:59 23:59 Intake Total 26.5 / 26.5 Output Total 3 / 3 Balance 23.5 / 23.5 Lab / Micro Data 06/08/25 05:15 06/08/25 05:15 Labs: Laboratory Results - last 24 hr 06/05/25 14:00: IgA 350, Endomysial IgA Ab Negative, Tiss Transglutamin IgA <2 06/08/25 05:15: WBC 3.6 L, RBC 3.28 L, Hgb 10.0 L, Hct 30.5 L, MCV 93.0, MCH 30.5, MCHC 32.8, RDW Std Deviation 45.3 H, RDW Coeff of Edita 13.3, Plt Count 232, MPV 10.3, Immature Gran % (Auto) 0.300, Neut % (Auto) 61.1, Lymph % (Auto) 26.4, [place] % (Auto) 11.9 H, Eos % (Auto) 0.0, Baso % (Auto) 0.3, Absolute Neuts (auto) 2.2, Absolute Lymphs (auto) 0.95, Nucleated RBC % 0, Sodium 136, Potassium 4.4, Chloride 102, Carbon Dioxide 25.9, Anion Gap 9, BUN 13, Creatinine 0.98, Estim Creat Clear Calc 47.68 L, Est GFR (MDRD) Non-Af 61, BUN/Creatinine Ratio 13.6, Glucose 115 H, Calcium 8.6 Micro: Microbiology 06/02/25 13:40 Blood Culture (Wb) - Right Hand Blood Culture - Final No growth in 5 days. 06/02/25 13:42 Blood Culture (Wb) - Anticubital Right Blood Culture - Final No growth in 5 days. 06/02/25 14:13 Mucosa - Nasopharyngeal Respiratory Panel (PCR) - Final 06/02/25 13:03 Mucosa - Nose SARS-CoV-2, Influenza & RSV (PCR) - Final Physical Exam Narrative Seen and examined. Patient still complain of right-sided abdominal pain but abdomen is soft does not seem tender. I think, patient has psychiatric issues, reinforced to get out of the bed. Not evaluated by PT because did not want to move out of bed. Hypoxia has resolved. No fever. Nausea and vomiting had improved. Continue Reglan as needed Physical exam General: Alert, Oriented x3, Cooperative HEENT: Atraumatic, PERRLA, EOMI, Normocephalic. Oral: No Gingival or Mucosal Lesions/ Ulcerations Neck: Supple, No JVD, Negative Carotid Bruits Chest wall/Lungs: Air entry diminished in bilateral lung bases. No crepitation/rhonchi Cardiovascular: Regular rate and rhythm, Normal S1,S2, No M/G/R Abdomen: Bowel Sounds Present, Soft, Non Tender, Non-Distended. Right-sided voluntary guarding : No dysuria. No renal angle tenderness. No suprapubic tenderness. Extremities: No edema, Capillary Refill Less than 3 Seconds Skin: No rashes, No breakdown Musculoskeletal: No Tenderness to Palpation of Joints or Extremities Neurological: Cranial nerves II-XII grossly intact, DTR 2+/4. No acute focal neurological deficit. Psych/Mental Status: Flat affect, mild depression. Assessment & Plan Assessment/Plan (1) Pneumonia: (2) Dyspnea: PLAN: Plan 70-year-old female admitted for shortness of breath and abdominal pain. Her pulse ox was 82% on room air at home. No chest pain. CTA was negative for PE but found to have pneumonia. She has mild chronic cough. 1. Bilateral community-acquired pneumonia-patient's chest CTA shows groundglass appearance into the areas of the right middle and lower lobes and left lower lobe tree-in-bud opacity compatible with pneumonitis/pneumonia. Patient told me that she has chronic cough for long time but no fever or chills. Patient had 5 days of antibiotics while here discharged on 2 more days of levofloxacin. Advised to follow-up in pulmonary clinic for PFT. 06/06: Patient's further said she had outside PFT in [place] by fairground operator. 06/07: On levofloxacin. EGD 04/25/2025 Impression: - Normal esophagus. - No gross lesions in the entire stomach. - Acquired duodenal stenosis. Biopsied. Colonoscopy Impression: - Localized moderate inflammation was found in the rectum secondary to colitis. Biopsied. 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 Biopsied. - Diverticulosis in the recto-sigmoid colon, in the sigmoid colon, in the transverse colon and in the ascending colon. - The examined portion of the ileum was normal. GI consulted. 06/07: EGD was done today. Advance diet as per tolerated Impression: - Normal esophagus. - Gastroparesis. - Acquired duodenal stenosis. Dilated. - No specimens collected. 06/08: Nausea and vomiting has almost resolved. Reglan as needed. #2. Elevated beta natruretic peptide-possible mild congestive heart failure-blood pressure on lower side therefore furosemide was stopped while here. # 3. Hypoxia due to bilateral pneumonia: Hypoxia has resolved. Home oxygen qualification test ordered #4 Type 2 diabetes-patient on 1800-calorie diet, continue home metformin #5 cerebral palsy-complicates care, management, recovery, and prognosis #6 chronic abdominal pain/irritable bowel syndrome/history of ischemic colitis, chronic problem: Patient follows Dr. Lockett in GI office. Celiac test ordered at time of admission is still pending. Follow-up in GI office Persistent nausea and vomiting. 06/08: Celiac test negative and reported normal IgA and normal distal transglutaminase IgA. #7 chronic anxiety/depression-patient will remain on her outpatient medications. 06/08: Physical deconditioning/low motivation for moving out of the bed: Discussed with the patient, classification case manager. Continue PT and OT Discharge plan: Patient has stated that that he wanted to go to rehab. Microbiology Past 72 Hours 06/02/25 13:40 Blood Culture (Wb) - Right Hand Blood Culture - Preliminary No growth in 48 hours. 06/02/25 13:42 Blood Culture (Wb) - Anticubital Right Blood Culture - Preliminary No growth in 48 hours. Laboratory Results 06/07/25 11:12: POC Glucose 101 Charges/Coding Visit Charges Inpatient E&M: 81508 Subs Hosp L2
[2025-06-08 20:55] VITALS: BP 139/72; PULSE 75; RESP 18; TEMP 37.2; O2SAT 96
[2025-06-09 04:43] VITALS: BP 97/55; PULSE 82; RESP 16; TEMP 36.3; O2SAT 95
[2025-06-09 09:28] VITALS: BP 128/55; PULSE 86; RESP 18; TEMP 36.4; O2SAT 95
[2025-06-09] MEDS: Polyethylene Glycol 3350 17 GM PACKET PO (09:38)
[2025-06-09] MEDS: Heparin Injection (Vial) 5,000 UNIT/ML VIAL 5000 UNIT SC (09:39)
[2025-06-09 11:00] VITALS: O2SAT 98
[2025-06-09 11:36] VITALS: O2SAT 96
--- NOTE | 2025-06-09 13:09 | PN.HOSP_ITS ---
Objective Data Objective Data Vital Signs: Vital Signs Temp Pulse Resp BP Pulse Ox O2 Del Method O2 Flow Rate 97.6 F L 86 18 128/55 H 96 Nasal Cannula 2 06/09/25 09:28 06/09/25 09:28 06/09/25 09:28 06/09/25 09:28 06/09/25 11:36 06/09/25 11:00 06/09/25 11:36 Oxygen Flow Rate (L/min) 2 Oxygen Delivery Method Nasal Cannula Weight: 128 lb 4.944 oz Body Mass Index (BMI) 19.5 Intake & Output: Intake and Output for Last 24 Hours 06/07/25 06/08/25 06/09/25 23:59 23:59 23:59 Intake Total 26.5 / 26.5 350 / 350 Output Total 3 / 3 Balance 23.5 / 23.5 350 / 350 Lab / Micro Data 06/08/25 05:15 06/08/25 05:15 Micro: Microbiology 06/02/25 13:40 Blood Culture (Wb) - Right Hand Blood Culture - Final No growth in 5 days. 06/02/25 13:42 Blood Culture (Wb) - Anticubital Right Blood Culture - Final No growth in 5 days. 06/02/25 14:13 Mucosa - Nasopharyngeal Respiratory Panel (PCR) - Final 06/02/25 13:03 Mucosa - Nose SARS-CoV-2, Influenza & RSV (PCR) - Final Physical Exam Narrative Seen and examined. Patient is doing well. Sometimes she has abdominal cramp but tolerated diet well. No nausea or vomiting. requested to put back on Klonopin. Patient stated she moved out of the bed Hypoxia has resolved. No fever. Nausea and vomiting had improved. Continue Reglan as needed Physical exam General: Alert, Oriented x3, Cooperative HEENT: Atraumatic, PERRLA, EOMI, Normocephalic. Oral: No Gingival or Mucosal Lesions/ Ulcerations Neck: Supple, No JVD, Negative Carotid Bruits Chest wall/Lungs: Air entry diminished in bilateral lung bases. No crepitation/rhonchi Cardiovascular: Regular rate and rhythm, Normal S1,S2, No M/G/R Abdomen: Bowel Sounds Present, Soft, Non Tender, Non-Distended. : No dysuria. No renal angle tenderness. No suprapubic tenderness. Extremities: No edema, Capillary Refill Less than 3 Seconds Skin: No rashes, No breakdown Musculoskeletal: No Tenderness to Palpation of Joints or Extremities Neurological: Cranial nerves II-XII grossly intact, DTR 2+/4. No acute focal neurological deficit. Psych/Mental Status: Flat affect, mild depression. Assessment & Plan Assessment/Plan (1) Pneumonia: (2) Dyspnea: PLAN: Plan 70-year-old female admitted for shortness of breath and abdominal pain. Her pulse ox was 82% on room air at home. No chest pain. CTA was negative for PE but found to have pneumonia. She has mild chronic cough. 1. Bilateral community-acquired pneumonia-patient's chest CTA shows groundglass appearance into the areas of the right middle and lower lobes and left lower lobe tree-in-bud opacity compatible with pneumonitis/pneumonia. Patient told me that she has chronic cough for long time but no fever or chills. Patient had 5 days of antibiotics while here discharged on 2 more days of levofloxacin. Advised to follow-up in pulmonary clinic for PFT. 06/06: Patient's further said she had outside PFT in [place] by drug room operator. 06/07: On levofloxacin. 06/09: Discontinue levofloxacin. Had 5 days of levofloxacin. EGD 04/25/2025 Impression: - Normal esophagus. - No gross lesions in the entire stomach. - Acquired duodenal stenosis. Biopsied. Colonoscopy Impression: - Localized moderate inflammation was found in the rectum secondary to colitis. Biopsied. 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 Biopsied. - Diverticulosis in the recto-sigmoid colon, in the sigmoid colon, in the transverse colon and in the ascending colon. - The examined portion of the ileum was normal. GI consulted. 06/07: EGD was done today. Advance diet as per tolerated Impression: - Normal esophagus. - Gastroparesis. - Acquired duodenal stenosis. Dilated. - No specimens collected. 06/08: Nausea and vomiting has almost resolved. Reglan as needed. 06/09: Tolerating diet well. Chronic IBS #2. Elevated beta natruretic peptide-possible mild congestive heart failure- blood pressure on lower side therefore furosemide was stopped while here. # 3. Hypoxia due to bilateral pneumonia: Hypoxia has resolved. Home oxygen qualification test ordered #4 Type 2 diabetes-patient on 1800-calorie diet, continue home metformin #5 cerebral palsy-complicates care, management, recovery, and prognosis #6 chronic abdominal pain/irritable bowel syndrome/history of ischemic colitis, chronic problem: Patient follows Dr. Lockett in GI office. Celiac test ordered at time of admission is still pending. Follow-up in GI office Persistent nausea and vomiting. 06/08: Celiac test negative and reported normal IgA and normal distal transglutaminase IgA. #7 chronic anxiety/depression-patient will remain on her outpatient medications. 06/08: Physical deconditioning/low motivation for moving out of the bed: Discussed with the patient, telephonic nurse case manager. Continue PT and OT Discharge plan: Patient has stated that that he wanted to go to rehab. Microbiology Past 72 Hours 06/02/25 13:40 Blood Culture (Wb) - Right Hand Blood Culture - Preliminary No growth in 48 hours. 06/02/25 13:42 Blood Culture (Wb) - Anticubital Right Blood Culture - Preliminary No growth in 48 hours. Laboratory Results 06/07/25 11:12: POC Glucose 101 Charges/Coding Visit Charges Inpatient E&M: 14896 Subs Hosp L2
[2025-06-09 14:35] VITALS: BP 94/39; PULSE 78; RESP 16; TEMP 36.7; O2SAT 98
[2025-06-09 22:34] VITALS: BP 121/78; PULSE 70; RESP 16; TEMP 36.9; O2SAT 98
[2025-06-10] VITALS (7 sets, daily range): BP systolic 89–135; BP diastolic 45–70; PULSE 68–90; RESP 16–18; TEMP 36.6–37.2; O2SAT 98–100
[2025-06-10] MEDS: Aspirin E.C. 81 MG Tablet PO (09:27)
[2025-06-10] MEDS: Heparin Injection (Vial) 5,000 UNIT/ML VIAL 5000 UNIT SC (09:27)
--- NOTE | 2025-06-10 15:44 | PN.HOSP_ITS ---
Objective Data Objective Data Vital Signs: Vital Signs Temp Pulse Resp BP Pulse Ox O2 Del Method O2 Flow Rate 99.0 F 80 18 93/45 L 99 Nasal Cannula 2 06/10/25 14:27 06/10/25 14:27 06/10/25 14:27 06/10/25 14:27 06/10/25 15:10 06/10/25 15:10 06/10/25 15:10 Oxygen Flow Rate (L/min) 2 Oxygen Delivery Method Nasal Cannula Weight: 128 lb 4.944 oz Body Mass Index (BMI) 19.5 Intake & Output: Intake and Output for Last 24 Hours 06/08/25 06/09/25 06/10/25 23:59 23:59 23:59 Intake Total 700 / 700 350 / 350 Balance 700 / 700 350 / 350 Lab / Micro Data 06/08/25 05:15 06/08/25 05:15 Micro: Microbiology 06/02/25 13:40 Blood Culture (Wb) - Right Hand Blood Culture - Final No growth in 5 days. 06/02/25 13:42 Blood Culture (Wb) - Anticubital Right Blood Culture - Final No growth in 5 days. 06/02/25 14:13 Mucosa - Nasopharyngeal Respiratory Panel (PCR) - Final 06/02/25 13:03 Mucosa - Nose SARS-CoV-2, Influenza & RSV (PCR) - Final Physical Exam Narrative Seen and examined. Patient is doing well. Sometimes she has abdominal cramp after eating food. No nausea or vomiting. requested to put back on Klonopin. Patient stated she moved out of the bed Hypoxia has resolved. No fever. Nausea and vomiting had improved. Continue Reglan as needed Physical exam General: Alert, Oriented x3, Cooperative HEENT: Atraumatic, PERRLA, EOMI, Normocephalic. Oral: No Gingival or Mucosal Lesions/ Ulcerations Neck: Supple, No JVD, Negative Carotid Bruits Chest wall/Lungs: Air entry diminished in bilateral lung bases. No crepitation/rhonchi Cardiovascular: Regular rate and rhythm, Normal S1,S2, No M/G/R Abdomen: Bowel Sounds Present, Soft, Non Tender, Non-Distended. : No dysuria. No renal angle tenderness. No suprapubic tenderness. Extremities: No edema, Capillary Refill Less than 3 Seconds Skin: No rashes, No breakdown Musculoskeletal: No Tenderness to Palpation of Joints or Extremities Neurological: Cranial nerves II-XII grossly intact, DTR 2+/4. No acute focal neurological deficit. Psych/Mental Status: Flat affect, mild depression. Assessment & Plan Assessment/Plan (1) Pneumonia: (2) Dyspnea: PLAN: Plan 70-year-old female admitted for shortness of breath and abdominal pain. Her pulse ox was 82% on room air at home. No chest pain. CTA was negative for PE but found to have pneumonia. She has mild chronic cough. 1. Bilateral community-acquired pneumonia-patient's chest CTA shows groundglass appearance into the areas of the right middle and lower lobes and left lower lobe tree-in-bud opacity compatible with pneumonitis/pneumonia. Patient told me that she has chronic cough for long time but no fever or chills. Patient had 5 days of antibiotics while here discharged on 2 more days of levofloxacin. Advised to follow-up in pulmonary clinic for PFT. 06/06: Patient's further said she had outside PFT in [place] by crating and moving estimator. 06/07: On levofloxacin. 06/09: Discontinue levofloxacin. Had 5 days of levofloxacin. EGD 04/25/2025 Impression: - Normal esophagus. - No gross lesions in the entire stomach. - Acquired duodenal stenosis. Biopsied. Colonoscopy Impression: - Localized moderate inflammation was found in the rectum secondary to colitis. Biopsied. 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 Biopsied. - Diverticulosis in the recto-sigmoid colon, in the sigmoid colon, in the transverse colon and in the ascending colon. - The examined portion of the ileum was normal. GI consulted. 06/07: EGD was done today. Advance diet as per tolerated Impression: - Normal esophagus. - Gastroparesis. - Acquired duodenal stenosis. Dilated. - No specimens collected. 06/08: Nausea and vomiting has almost resolved. Reglan as needed. 06/09: Tolerating diet well. Chronic IBS 06/10 discussed about the diet. Avoid hard and chewy food. #2. Elevated beta natruretic peptide-possible mild congestive heart failure- blood pressure on lower side therefore furosemide was stopped while here. # 3. Hypoxia due to bilateral pneumonia: Hypoxia has resolved. Home oxygen qualification test ordered #4 Type 2 diabetes-patient on 1800-calorie diet, continue home metformin #5 cerebral palsy-complicates care, management, recovery, and prognosis #6 chronic abdominal pain/irritable bowel syndrome/history of ischemic colitis, chronic problem: Patient follows Dr. Lockett in GI office. Celiac test ordered at time of admission is still pending. Follow-up in GI office Persistent nausea and vomiting. 06/08: Celiac test negative and reported normal IgA and normal distal transglutaminase IgA. #7 chronic anxiety/depression-patient will remain on her outpatient medications. 06/08: Physical deconditioning/low motivation for moving out of the bed: Discussed with the patient, case monitor. Continue PT and OT 06/10 close he requested Lexapro to be put on. Discharge plan: Patient has stated that that he wanted to go to rehab. Microbiology Past 72 Hours 06/02/25 13:40 Blood Culture (Wb) - Right Hand Blood Culture - Preliminary No growth in 48 hours. 06/02/25 13:42 Blood Culture (Wb) - Anticubital Right Blood Culture - Preliminary No growth in 48 hours. Laboratory Results 06/07/25 11:12: POC Glucose 101 Charges/Coding Visit Charges Inpatient E&M: 17756 Subs Hosp L2
[2025-06-11 05:56] VITALS: BP 92/45; PULSE 77; RESP 16; TEMP 37.1; O2SAT 98
[2025-06-11 07:57] LABS: Hematocrit 31.4 % (37-47); Hemoglobin 9.8 g/dL (12.0-15.0); Immature Granulocytes Count 0.010 X10^3/uL (0.0-0.0); Mean Corp Hgb Conc 31.2 g/dL (32-36); Mean Corpuscular Volume 96.3 fL (81-99); Mean Platelet Vol. 10.1 fl (6.2-12.0); NRBC Flagged by Analyzer 0 % (0-5); Platelet Count 186 K/mm3 (150-450); RBC Distribution Width CV 13.6 % (11.6-14.6); RBC Distribution Width SD 48.7 fl (35.1-43.9); Red Blood Count 3.26 M/mm3 (4.2-5.4); White Blood Count 3.8 K/mm3 (4.4-11.0)
[2025-06-11 08:54] LABS: Anion Gap 8 (5-15); BUN 13 mg/dL (4-19); BUN/Creat Ratio 13.8 RATIO (10-20); Calcium,Total 8.5 mg/dL (7.6-11.0); Carbon Dioxide 25.8 mmol/L (21.0-32.0); Chloride 106 mmol/L (98-108); Estimated Creatinine Clearance 48.17 ml/min (50-250); Glucose 126 mg/dL (70-99); Potassium 4.0 mmol/L (3.3-5.1)
[2025-06-11 09:06] VITALS: BP 113/63; PULSE 77; RESP 18; TEMP 36.7; O2SAT 98
--- NOTE | 2025-06-11 09:10 | CASEMGMT ---
Addendum entered by Meghan Ashford 06/11/25 13:30: Pt qualifies for home oxygen, referral sent to [facility] via careport at this time. Addendum entered by Meghan Ashford 06/11/25 12:31: TANIA ALLEN updated pt that [facility] has accepted her for care. Pt is anxious to dc home. Pt asks if she will need oxygen. Should pt qualify, pt chose [employer] after being given a local verbal list of in network DME companies. Addendum entered by Meghan Ashford 06/11/25 12:18: Received confirmation from Meron at [facility], they have accepted pt for SOC on Wednesday. Addendum entered by Meghan Ashford 06/11/25 11:12: TANIA ALLEN made aware that pt was denied SNF stay, peer to peer offered. TANIA ALLEN into pt room, pt and agreeable to [facility] and feels safe with this option. Discussed disciplines to be ordered. Pt and have chosen 1. [facility] 2. [employer] 3. [employer]. TC to [facility] referral made, will await decision to accept. Addendum entered by Meghan Ashford 06/11/25 09:43: TANIA ALLEN into pt room, pt present. Explained to same information provided to pt earlier. At this time, private pay is not an option. Provided pt and with a HHC list created by ri porcelain buildup assistant at this time. Pt and to review list in case HH is needed. Original Note: Received information from [facility] via careport that pt is under review with insurance. TANIA ALLEN into pt room, pt lying in bed. Pt made aware of this and discussed options should she not get approved for skilled stay. Pt states she would be agreeable to [facility]. TANIA ALLEN to follow decision of insurance.
[2025-06-11] MEDS: Heparin Injection (Vial) 5,000 UNIT/ML VIAL 5000 UNIT SC (09:17)
--- NOTE | 2025-06-11 09:21 | CASEMGMT ---
Discharge Planning A list of?HH providers including quality and resource use data and consistent with the patient's preferred geographic region, medical needs, and insurance network was created in CarePort Guide.? This list was provided to the RN ALEJANRDO. Danielle Casey, Discharge Planning Asst.
--- NOTE | 2025-06-11 10:01 | DCINST_ITS ---
Discharge Instructions DC O2, CPAP, BIPAP needs Home O2 Discharge instructions: No Dressing / Incision Weight Bearing Status: Weight bearing as tolerated Dressing / Incision Call your doctor if you observe: Fever of 101 or Higher, Coldness, Increased Pain, Numbness or Tingling, Change in Color, Inability to urinate, Inability to have a bowel movement, Shortness of breath, Dizziness, Fainting spells, Swelling in the ankles, Chest pain, Prolonged hiccupping, Increased palpitations (irregular heartbeat) and Calf discomfort Follow Up Care Test Results: Test results from this visit will be discussed in further detail at your follow- up appointment, if applicable. Discharge Plan Admission Admit Date/Time: 06/02/25 13:36 Primary Reason for Your Visit: Community-acquired pneumonia Attending Provider: Ganesh Kiran Primary Care Provider: Marci Nuñez Consulting Providers: Ben Johnson; Friend,Shan Discharge Orders/Prescriptions Prescriptions: New lisinopril 10 mg Tablet 5 mg PO DAILY Qty: 30 0RF Rx Instructions: Hold for SBP less than 130 mmHg Continued furosemide 20 mg tablet 20 mg PO QDAY PRN (Reason: for 2lb weight gain) metformin 500 mg tablet 500 mg PO BID lamotrigine 100 mg tablet 100 mg PO QDAY escitalopram oxalate 5 mg tablet 5 mg PO QDAY polyethylene glycol 3350 [Miralax] 17 gram/dose powder 17 g PO DAILY docusate sodium 100 mg capsule 100 mg PO DAILY Patient Comments: stopped 05/30/25 baclofen 5 mg tablet 5 mg PO DAILY Patient Comments: PRESCRIPTION FOR 4 TIMES DAILY ferrous sulfate [Feosol] 325 mg (65 mg iron) tablet 325 mg PO QDAY Linzess 145 mcg capsule 145 mcg PO QAM Qty: 60 2RF Patient Comments: stopped 05/30/25 ondansetron 4 mg tablet,disintegrating 4 mg PO Q8H Qty: 30 3RF trazodone 50 MG tablet 50 mg PO DAILY clonazepam 1 MG tablet 1 mg PO QHS aspirin 81 mg tablet,delayed release (DR/EC) 81 mg PO .COMPLEX Rx Instructions: 81 mg orally EVERY OTHER DAY; rosuvastatin 20 mg tablet 20 mg PO QHS pantoprazole 40 mg Tablet,Delayed Release (Dr/Ec) 40 mg PO DAILY 30 Days Qty: 30 0RF oxycodone 5 mg Tablet 5 mg PO Q6H PRN PRN (Reason: Pain Score 6-10) 7 Days Qty: 28 0RF Austedo XR 6 mg tablet extended release 24 hr 6 mg PO DAILY Patient Comments: stopped 06/02/25 phenazopyridine 100 mg tablet 100 mg PO TID PRN PRN (Reason: pain) hyoscyamine sulfate 0.125 mg tablet 0.125 mg PO TID PRN (Reason: dyspepsia) Qty: 90 2RF Referrals / Follow Up: Marci Nuñez DO [Primary Care Provider] - Lluvia Kilpatrick NP-C [Med Staff - Adv Practice Prof] - Within 1 Month (For COPD evaluation) Shan Lockett DO [Med Staff - Active Staff] - Within 1 Month Disposition Disposition (needs filled in before D/C Order can be placed): Home Health Service
[2025-06-11 12:06] VITALS: O2SAT 84; O2SAT 94; O2SAT 98
--- NOTE | 2025-06-11 12:06 | DS.PCM_ITS ---
Providers Date of Admission: 06/02/25 Date of Discharge: 06/11/25 Primary Care Physician: Dr. Marci Nuñez, Consultations 06/06/25 13:36 Consult: Gastroenterology Routine Consulting Provider: LevyJuann Reason for Consult: N/V, Duodenal stenosis, last EGD EMERGENT Consult: No MD Notified: Yes Date Notified: 06/06/25 Time Notified: 13:37 Method of Notification: Text Reason For Visit: PNEUMONIA, HYPOXIA Diagnosis Discharge Diagnosis (1) Pneumonia: Status: Inactive Code(s): J18.9 - Pneumonia, unspecified organism (2) Dyspnea: Status: Inactive Code(s): R06.00 - Dyspnea, unspecified Plan 70-year-old female admitted for shortness of breath and abdominal pain. Her pulse ox was 82% on room air at home. No chest pain. CTA was negative for PE but found to have pneumonia. She has mild chronic cough. 1. Bilateral community-acquired pneumonia-patient's chest CTA shows groundglass appearance into the areas of the right middle and lower lobes and left lower lobe tree-in-bud opacity compatible with pneumonitis/pneumonia. Patient told me that she has chronic cough for long time but no fever or chills. Patient had 5 days of antibiotics while here discharged on 2 more days of levofloxacin. Advised to follow-up in pulmonary clinic for PFT. 06/06: Patient's further said she had outside PFT in [place] by phone engineer. 06/07: On levofloxacin. 06/09: Discontinue levofloxacin. Had 5 days of levofloxacin. EGD 04/25/2025 Impression: - Normal esophagus. - No gross lesions in the entire stomach. - Acquired duodenal stenosis. Biopsied. Colonoscopy Impression: - Localized moderate inflammation was found in the rectum secondary to colitis. Biopsied. 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 Biopsied. - Diverticulosis in the recto-sigmoid colon, in the sigmoid colon, in the transverse colon and in the ascending colon. - The examined portion of the ileum was normal. GI consulted. 06/07: EGD was done today. Advance diet as per tolerated Impression: - Normal esophagus. - Gastroparesis. - Acquired duodenal stenosis. Dilated. - No specimens collected. 06/08: Nausea and vomiting has almost resolved. Reglan as needed. 06/09: Tolerating diet well. Chronic IBS 06/10 discussed about the diet. Avoid hard and chewy food. 06/11: Patient was able to tolerate the food. Follow-up in GI office. She completed the antibiotic Levaquin on 06/09 #2. Elevated beta natruretic peptide-possible mild congestive heart failure- blood pressure on lower side therefore furosemide was stopped while here. # 3. Hypoxia due to bilateral pneumonia: Hypoxia has resolved. Home oxygen qualification test ordered 06/11 currently she is 98% on room air. Home oxygen qualification test ordered #4 Type 2 diabetes-patient on 1800-calorie diet, continue home metformin #5 cerebral palsy-complicates care, management, recovery, and prognosis #6 chronic abdominal pain/irritable bowel syndrome/history of ischemic colitis, chronic problem: Patient follows Dr. Lockett in GI office. Celiac test ordered at time of admission is still pending. Follow-up in GI office Persistent nausea and vomiting. 06/08: Celiac test negative and reported normal IgA and normal distal transglutaminase IgA. #7 chronic anxiety/depression-patient will remain on her outpatient medications. 06/08: Physical deconditioning/low motivation for moving out of the bed: Discussed with the patient, nurse outreach case manager. Continue PT and OT 06/10 : She requested Lexapro to be put on. 06/11. She is doing good with the Lexapro which was resumed yesterday Discharge plan: Patient has stated that that he wanted to go to rehab. Discharge medication reconciliation done. Discharge follow-up instructions completed. Discharge process discussed with the patient and all questions were answered to patient's satisfaction. Follow with PCP in 1 to 2 weeks Total time spent, exact 35 minutes on discharge meds reconciliation, examination, coordination of care with nurses and ancillary staff, review of imaging and blood test and discussion with the patient on follow-up instructions. Microbiology Past 72 Hours 06/02/25 13:40 Blood Culture (Wb) - Right Hand Blood Culture - Preliminary No growth in 48 hours. 06/02/25 13:42 Blood Culture (Wb) - Anticubital Right Blood Culture - Preliminary No growth in 48 hours. Laboratory Results 06/07/25 11:12: POC Glucose 101 Medications at Discharge Home Medications clonazepam 1 mg tablet 1 mg PO QHS anxiety 11/18/14 trazodone 50 mg tablet 50 mg PO DAILY Anxiety 11/18/14 aspirin 81 mg tablet,delayed release 81 mg PO .COMPLEX heart 10/01/23 rosuvastatin 20 mg tablet 20 mg PO QHS cholesterol 02/21/24 furosemide 20 mg tablet 20 mg PO QDAY PRN for 2lb weight gain 06/13/24 escitalopram oxalate 5 mg tablet 5 mg PO QDAY Mood 11/28/24 polyethylene glycol 3350 17 gram/dose oral powder (Miralax) 17 g PO DAILY Constipation 11/28/24 lamotrigine 100 mg tablet 100 mg PO QDAY Anxiety 01/23/25 ferrous sulfate 325 mg (65 mg iron) tablet (Feosol) 325 mg PO QDAY Supplement 02/13/25 linaclotide 145 mcg capsule (Linzess) 145 mcg PO QAM Constipation #60 caps 02/14/25 deutetrabenazine 6 mg tablet,extended release 24 hr (Austedo XR) 6 mg PO DAILY involuntary Movements 04/19/25 oxycodone 5 mg tablet 5 mg PO Q6H PRN PRN Pain Score 6-10 7 days #28 tabs 04/30/25 pantoprazole 40 mg tablet,delayed release 40 mg PO DAILY 30 days #30 tabs 04/30/25 baclofen 5 mg tablet 5 mg PO DAILY SPASCITY 05/29/25 docusate sodium 100 mg capsule 100 mg PO DAILY CONSTIPATION 05/29/25 metformin 500 mg tablet 500 mg PO BID Diabetes 05/29/25 ondansetron 4 mg disintegrating tablet 4 mg PO Q8H #30 tabs 05/30/25 phenazopyridine 100 mg tablet 100 mg PO TID PRN PRN pain 06/02/25 hyoscyamine sulfate 0.125 mg tablet 0.125 mg PO TID PRN dyspepsia #90 tabs 06/04/25 lisinopril 10 mg tablet 5 mg (1/2 x 10 mg) PO DAILY #30 tabs 06/11/25 Physical Exam Narrative Seen and examined. Patient is doing well. Insurance company did not approve for detention. Patient has been agreed for home discharge. Discussed with the nurse outreach case managerproduction service manager exam General: Alert, Oriented x3, Cooperative HEENT: Atraumatic, PERRLA, EOMI, Normocephalic. Oral: No Gingival or Mucosal Lesions/ Ulcerations Neck: Supple, No JVD, Negative Carotid Bruits Chest wall/Lungs: Air entry diminished in bilateral lung bases. No crepitation/rhonchi Cardiovascular: Regular rate and rhythm, Normal S1,S2, No M/G/R Abdomen: Bowel Sounds Present, Soft, Non Tender, Non-Distended. : No dysuria. No renal angle tenderness. No suprapubic tenderness. Extremities: No edema, Capillary Refill Less than 3 Seconds Skin: No rashes, No breakdown Musculoskeletal: No Tenderness to Palpation of Joints or Extremities Neurological: Cranial nerves II-XII grossly intact, DTR 2+/4. No acute focal neurological deficit. Psych/Mental Status: Flat affect, mild depression. Weight / BMI Weight Weight: 128 lb 4.944 oz Body Mass Index (BMI) 19.5 ABG / Lab / Microbiology Data 06/11/25 07:17 06/11/25 07:17 Laboratory: Laboratory Results - last 24 hr 06/11/25 07:17: WBC 3.8 L, RBC 3.26 L, Hgb 9.8 L, Hct 31.4 L, MCV 96.3, MCH 30.1, MCHC 31.2 L, RDW Std Deviation 48.7 H, RDW Coeff of Edita 13.6, Plt Count 186, MPV 10.1, Immature Gran % (Auto) 0.300, Neut % (Auto) 60.0, Lymph % (Auto) 23.2, Mcdowell % (Auto) 11.5 H, Eos % (Auto) 4.7, Baso % (Auto) 0.3, Absolute Neuts (auto) 2.3, Absolute Lymphs (auto) 0.89, Nucleated RBC % 0, Sodium 140, Potassium 4.0, Chloride 106, Carbon Dioxide 25.8, Anion Gap 8, BUN 13, Creatinine 0.97, Estim Creat Clear Calc 48.17 L, Est GFR (MDRD) Non-Af 62, BUN/Creatinine Ratio 13.8, Glucose 126 H, Calcium 8.5 Microbiology: Microbiology 06/02/25 13:40 Blood Culture (Wb) - Right Hand Blood Culture - Final No growth in 5 days. 06/02/25 13:42 Blood Culture (Wb) - Anticubital Right Blood Culture - Final No growth in 5 days. 06/02/25 14:13 Mucosa - Nasopharyngeal Respiratory Panel (PCR) - Final 06/02/25 13:03 Mucosa - Nose SARS-CoV-2, Influenza & RSV (PCR) - Final D/C Instructions Weight Bearing Status: Weight bearing as tolerated Call your doctor if you observe: Fever of 101 or Higher, Coldness, Increased Pain, Numbness or Tingling, Change in Color, Inability to urinate, Inability to have a bowel movement, Shortness of breath, Dizziness, Fainting spells, Swelling in the ankles, Chest pain, Prolonged hiccupping, Increased palpitations (irregular heartbeat) and Calf discomfort DC O2, CPAP, BIPAP Needs Home O2 Discharge instructions: No When: IN 2 WEEKS Meaningful Use Info Meaningful Use Meaningful Use Diagnoses (Choose all that apply): None applicable Discharge Plan Admission Admit Date/Time: 06/02/25 13:36 Primary Reason for Your Visit: Community-acquired pneumonia Attending Provider: Ganesh Kiran Primary Care Provider: Marci Nuñez Consulting Providers: Ben Johnson; Friend,Shan Discharge Orders/Prescriptions Prescriptions: New lisinopril 10 mg Tablet 5 mg PO DAILY Qty: 30 0RF Rx Instructions: Hold for SBP less than 130 mmHg Continued furosemide 20 mg tablet 20 mg PO QDAY PRN (Reason: for 2lb weight gain) metformin 500 mg tablet 500 mg PO BID lamotrigine 100 mg tablet 100 mg PO QDAY escitalopram oxalate 5 mg tablet 5 mg PO QDAY polyethylene glycol 3350 [Miralax] 17 gram/dose powder 17 g PO DAILY docusate sodium 100 mg capsule 100 mg PO DAILY Patient Comments: stopped 05/30/25 baclofen 5 mg tablet 5 mg PO DAILY Patient Comments: PRESCRIPTION FOR 4 TIMES DAILY ferrous sulfate [Feosol] 325 mg (65 mg iron) tablet 325 mg PO QDAY Linzess 145 mcg capsule 145 mcg PO QAM Qty: 60 2RF Patient Comments: stopped 05/30/25 ondansetron 4 mg tablet,disintegrating 4 mg PO Q8H Qty: 30 3RF trazodone 50 MG tablet 50 mg PO DAILY clonazepam 1 MG tablet 1 mg PO QHS aspirin 81 mg tablet,delayed release (DR/EC) 81 mg PO .COMPLEX Rx Instructions: 81 mg orally EVERY OTHER DAY; rosuvastatin 20 mg tablet 20 mg PO QHS pantoprazole 40 mg Tablet,Delayed Release (Dr/Ec) 40 mg PO DAILY 30 Days Qty: 30 0RF oxycodone 5 mg Tablet 5 mg PO Q6H PRN PRN (Reason: Pain Score 6-10) 7 Days Qty: 28 0RF Austedo XR 6 mg tablet extended release 24 hr 6 mg PO DAILY Patient Comments: stopped 06/02/25 phenazopyridine 100 mg tablet 100 mg PO TID PRN PRN (Reason: pain) hyoscyamine sulfate 0.125 mg tablet 0.125 mg PO TID PRN (Reason: dyspepsia) Qty: 90 2RF Referrals / Follow Up: Marci Nuñez DO [Primary Care Provider] - Shan Lockett DO [Med Staff - Active Staff] - Within 1 Month Lluvia Kilpatrick NP-C [Med Staff - Adv Practice Prof] - Within 1 Month (For COPD evaluation) Disposition Disposition (needs filled in before D/C Order can be placed): Home Health Service Charges/Coding Visit Charges Inpatient E&M: 89602 Disch Hosp >30min
--- NOTE | 2025-06-11 15:06 | PHA.DC_ITS ---
Pharmacy [facility] Counseling Pharmacy Service has performed discharge medication reconciliation and counseling for this patient. 1. LISINOPRIL 5MG PO DAILY The patient's discharge medication list was reviewed for discrepancies and discrepancies were resolved. The patient was counseled on the following discharge medications and changes in medications for homegoing were reviewed. The Reason for Use, instructions for use, and potential side effects were reviewed for all new medications. The patient's questions regarding all of their medications were answered. The patient was able to verbally demonstrate an understanding of their discharge medications. Medications at Discharge Home Medications clonazepam 1 mg tablet 1 mg PO QHS anxiety 11/18/14 trazodone 50 mg tablet 50 mg PO DAILY Anxiety 11/18/14 aspirin 81 mg tablet,delayed release 81 mg PO .COMPLEX heart 10/01/23 rosuvastatin 20 mg tablet 20 mg PO QHS cholesterol 02/21/24 furosemide 20 mg tablet 20 mg PO QDAY PRN for 2lb weight gain 06/13/24 escitalopram oxalate 5 mg tablet 5 mg PO QDAY Mood 11/28/24 polyethylene glycol 3350 17 gram/dose oral powder (Miralax) 17 g PO DAILY Constipation 11/28/24 lamotrigine 100 mg tablet 100 mg PO QDAY Anxiety 01/23/25 ferrous sulfate 325 mg (65 mg iron) tablet (Feosol) 325 mg PO QDAY Supplement 02/13/25 linaclotide 145 mcg capsule (Linzess) 145 mcg PO QAM Constipation #60 caps 02/14/25 deutetrabenazine 6 mg tablet,extended release 24 hr (Austedo XR) 6 mg PO DAILY involuntary Movements 04/19/25 oxycodone 5 mg tablet 5 mg PO Q6H PRN PRN Pain Score 6-10 7 days #28 tabs 04/30/25 pantoprazole 40 mg tablet,delayed release 40 mg PO DAILY 30 days #30 tabs 04/30/25 baclofen 5 mg tablet 5 mg PO DAILY SPASCITY 05/29/25 docusate sodium 100 mg capsule 100 mg PO DAILY CONSTIPATION 05/29/25 metformin 500 mg tablet 500 mg PO BID Diabetes 05/29/25 ondansetron 4 mg disintegrating tablet 4 mg PO Q8H #30 tabs 05/30/25 phenazopyridine 100 mg tablet 100 mg PO TID PRN PRN pain 06/02/25 hyoscyamine sulfate 0.125 mg tablet 0.125 mg PO TID PRN dyspepsia #90 tabs 06/04/25 lisinopril 10 mg tablet 5 mg (1/2 x 10 mg) PO DAILY #30 tabs 06/11/25
[2025-06-11 15:40] VITALS: BP 130/59; PULSE 66; RESP 18; TEMP 37; O2SAT 98
== END 2025-06-11 15:38 | disposition home health service (06) | DRG 194 ==
LOC: ED 13:34 → MS3 13:53
PROVIDERS: Internal Medicine Gastroenterology; Admitting Provider Internal Medicine; Emergency Provider Emergency Medicine; PCP Family Medicine; Visit Provider Internal Medicine
PROC: 0DJ08ZZ Inspection of Upper Intestinal Tract, Via Natural or Artificial Opening Endoscopic (ICD-10-PCS; CPT 43235; principal; 2025-06-07 12:10)
DX: J18.9 Pneumonia, unspecified organism (principal); I50.32 Chronic diastolic (congestive) heart failure; K31.5 Obstruction of duodenum; E11.51 Type 2 diabetes mellitus with diabetic peripheral angiopathy without gangrene; D64.9 Anemia, unspecified; E78.00 Pure hypercholesterolemia, unspecified; E11.43 Type 2 diabetes mellitus with diabetic autonomic (poly)neuropathy; G80.9 Cerebral palsy, unspecified; I11.0 Hypertensive heart disease with heart failure; F32.A Depression, unspecified; G25.81 Restless legs syndrome; I25.2 Old myocardial infarction; F41.9 Anxiety disorder, unspecified; K58.9 Irritable bowel syndrome, unspecified; K31.84 Gastroparesis; R11.2 Nausea with vomiting, unspecified; I95.9 Hypotension, unspecified; I25.10 Atherosclerotic heart disease of native coronary artery without angina pectoris; K21.9 Gastro-esophageal reflux disease without esophagitis; R09.02 Hypoxemia; G89.29 Other chronic pain; Z95.810 Presence of automatic (implantable) cardiac defibrillator; Z79.02 Long term (current) use of antithrombotics/antiplatelets; Z79.82 Long term (current) use of aspirin; Z86.73 Personal history of transient ischemic attack (TIA), and cerebral infarction without residual deficits; Z87.19 Personal history of other diseases of the digestive system; Z79.84 Long term (current) use of oral 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 drugs; Z90.49 Acquired absence of other specified parts of digestive tract; Z95.5 Presence of coronary angioplasty implant and graft; Z79.899 Other long term (current) drug therapy; Z87.891 Personal history of nicotine dependence
CPT/HCPCS: 36415; 71275; 74174; 80048; 80053; 82784; 82962; 83516; 83605; 83690; 83880; 85025; 85027; 86255; 87040; 87631; 87633; 92526; 92610; 93005; 94640; 97116; 97162; 97166; 97530; 97535; 99285; Q9967; A4216; J1938; J2405

== ENCOUNTER 2025-07-01 16:38 | Observation (INO) | payer MEDICARE, SELFPAY ==
[2025-07-01] VITALS (8 sets, daily range): BP systolic 149–172; BP diastolic 67–72; PULSE 65–103; RESP 14–25; TEMP 36.6–36.8; O2SAT 98–100; BMI 19.0; BMI 18.0
--- NOTE | 2025-07-01 17:05 | EKG12_ITS ---
Test Reason : SOB Blood Pressure : */* mmHG Vent. Rate : 70 BPM Atrial Rate : 70 BPM P-R Int : 150 ms QRS Dur : 120 ms QT Int : 442 ms P-R-T Axes : 46 102 59 degrees QTcB Int : 477 ms Atrial-sensed ventricular-paced rhythm Biventricular pacemaker detected Abnormal ECG Confirmed by MOY MORENO, ALEXANDER ([id number]), non linear editor CRESCENCIO BERRY ([id number]) on 07/02/2025 1:15:17 PM Referred By: RAE Confirmed By: ALEXANDER WINTER MD
--- NOTE | 2025-07-01 17:06 | EDS_ITS ---
HPI History of Present Illness Chief Complaint: Shortness of Breath Detail of Chief Complaint: Shortness of breath Informant: patient Narrative Narrative: Patient presents with shortness of breath that started about an hour ago but has been chronic. She normally wears home O2. Normally wears 2 L. Patient had recent admission in May for 8 days for pneumonia. She was told on CT scan at that time she may have a touch of COPD. She is not currently a smoker but she did have remote history of smoking. Patient denies chest pain. She has an occasional cough that at times will bring up some yellow phlegm. She has had no fever. Denies recent travel or surgery. Currently not anticoagulated. [facility] Medical History Pneumonia Dyspnea Back pain History of Holter monitoring History of stress test History of echocardiogram Cardiology follow-up encounter Ischemic colitis History of left heart catheterization History of mechanical ventilation Cardiogenic pulmonary edema Acute hypoxic respiratory failure Multiple lung nodules Major depressive disorder Left bundle branch block NSTEMI (non-ST elevated myocardial infarction) Diabetic peripheral vascular disease Diabetic nephropathy Chronic kidney disease (CKD) Bleeding ulcer Dyslipidemia Chronic systolic heart failure Pacemaker Congestive heart failure (CHF) Cerebral palsy Anxiety and depression Heart failure with reduced ejection fraction GERD (gastroesophageal reflux disease) Insomnia Transient ischemic attack AV node dysfunction Ischemic cardiomyopathy Presence of biventricular implantable cardioverter-defibrillator Ulcer Restless legs High cholesterol Anxiety Former smoker ICD (implantable cardioverter-defibrillator) in place Coronary artery disease CVA (cerebral vascular accident) PFO (patent foramen ovale) Cardiac resynchronization therapy defibrillator ([employer]-D) in place Myocarditis Hyperlipidemia Hypertension Home Medications ?Medication ?Instructions ?Recorded ?Last Taken ?Type clonazepam 1 mg tablet 1 mg PO QHS anxiety 11/18/14 06/01/25 History trazodone 50 mg tablet 50 mg PO DAILY Anxiety 11/1806/01/25 History aspirin 81 mg tablet,delayed 81 mg PO .COMPLEX heart 1 12/01/22 06/01/25 History release rosuvastatin 20 mg tablet 20 mg PO QHS cholesterol 12/1506/01/25 History furosemide 20 mg tablet 20 mg PO QDAY PRN for 2lb we ight 06/13/24 06/19/24 History gain escitalopram oxalate 5 mg tablet 5 mg PO QDAY Mood 06/1506/01/25 History polyethylene glycol 3350 17 17 g PO DAILY Constipation 11/28/24 06/01/25 History gram/dose oral powder (Miralax) lamotrigine 100 mg tablet 100 mg PO QDAY Anxiety 01/2306/02/25 History ferrous sulfate 325 mg (65 mg 325 mg PO QDAY Supplemen t 02/13/25 06/01/25 History iron) tablet (Feosol) linaclotide 145 mcg capsule 145 mcg PO QAM Constipatio n #60 02/14/25 Unknown Rx (Linzess) caps deutetrabenazine 6 mg 6 mg PO DAILY involuntary Mo vements 04/19/25 04/20/25 08:50 History tablet,extended release 24 hr (Austedo XR) oxycodone 5 mg tablet 5 mg PO Q6H PRN PRN Pain Sco re 04/30/25 Unknown Rx 6-10 7 days #28 tabs pantoprazole 40 mg tablet,delayed 40 mg PO DAILY 30 da ys #30 tabs 04/30/25 06/01/25 Rx release baclofen 5 mg tablet 5 mg PO DAILY SPASCITY 05/2906/01/25 History docusate sodium 100 mg capsule 100 mg PO DAILY CONSTIP ATION 05/29/25 Unknown History metformin 500 mg tablet 500 mg PO BID Diabetes 05/2906/01/25 History ondansetron 4 mg disintegrating 4 mg PO Q8H #30 tabs 0 05/30/25 06/01/25 Rx tablet phenazopyridine 100 mg tablet 100 mg PO TID PRN PRN pa in 06/02/25 06/02/25 History hyoscyamine sulfate 0.125 mg tablet 0.125 mg PO TID NM N dyspepsia #90 06/04/25 Unknown Rx tabs lisinopril 10 mg tablet 5 mg (1/2 x 10 mg) PO DAILY #30 06/11/25 Unknown Rx tabs Allergy/AdvReac Type Severity Reaction Status Date / Time No Known Allergies Allergy Verified 07/01/25 16:40 Family History Father Heart disease Myocardial infarction Mother Anxiety and depression Suicide and self-inflicted injury from suicide age 52. Surgical History History of cardiac catheterization Presence of stent in coronary artery History of bilateral cataract extraction History of skin surgery S/P colon polypectomy History of cardiac defibrillator placement History of cholecystectomy History of coronary artery stent placement Social History household members: spouse Smoking Status: Former smoker how long ago did patient quit smokin-1.5 ppd from teen until quit in 2008. alcohol intake: never substance use type: does not use caffeine: Yes seatbelt use: always do you feel safe at home: Yes additional social history: - Cuate ROS ROS ED Review of Systems ROS Unobtainable: other Constitutional Constitutional ED: Reports lethargy; Denies chills, fever(s), sweats or weight loss Eyes Eyes: Denies blurry vision, change in vision or diplopia ENT ENT ED: Denies rhinorrhea or sore throat Cardiovascular Cardiovascular: Denies chest pain, orthopnea or racing heartbeat Respiratory/Chest Respiratory/Chest: Reports cough, dyspnea and dyspnea on exertion; Denies orthopnea or sputum Gastrointestinal Gastrointestinal: Denies abdominal pain, diarrhea, nausea or vomiting Genitourinary Genitourinary ED: Denies dysuria, hematuria or urinary frequency Musculoskeletal Musculoskeletal: Denies arthralgias, back pain, myalgias or neck pain Integumentary Denies abscess, Abrasions or rash Neurologic Neurologic: Denies headache(s) or weakness Psychiatric Psychiatric: Denies anxiety, depression or suicidal thoughts Endocrine Endocrinology: Denies polydipsia, polyphagia or polyuria Hematologic/Lymphatic Hematologic/Lymphatic: Denies easy bleeding, easy bruising or lymphadenopathy Allergic/Immunologic Allergic/Immunologic ED: Denies mouth swelling, tongue swelling or urticaria EXAM Physical Exam Const Vital Signs: 07/01/25 16:38 Temperature 98.3 F Temperature Source Oral Pulse Rate 78 Respiratory Rate 18 Blood Pressure 149/72 H Blood Pressure Mean 97 Pulse Ox 98 Oxygen Delivery Method Nasal Cannula Oxygen Flow Rate (L/min) 3 Positive well nourished and well developed General Appearance ED: well developed and NAD HEENT Reports TM's clear and moist mucous membranes normocephalic and atraumatic; Negative for trauma or tenderness Tympanic Membrane ED: Yes TM's clear Eyes PERRL and EOMs intact bilaterally General Eye ED: Negative for pale conjunctiva or scleral icterus Neck no lymphadenopathy, supple and no JVD General: Negative for tenderness Chest Wall inspection of chest normal and palpation of chest normal Chest: Negative for tenderness Resp normal respiratory effort and clear to auscultation bilaterally Resp Narrative: Occasional faint wheeze on exam. There is no conversational dyspnea. No significant tachypnea. No accessory muscle use or retractions. Effort and Inspection: Negative for respiratory distress or pain with movement Auscultation: wheezes; Negative for rhonchi or diminished lung sounds Cardio regular rate, regular rhythm, S1 normal heart sound, S2 normal heart sound and no murmurs Peripheral Pulses: pulses 2+ throughout GI normal to inspection, nondistended, normoactive bowel sounds, soft to palpation, non-tender, non-distended and no masses Back/Spine no CVA tenderness and no thoracic nor lumbar tenderness Extremity normal to inspection General Extremety ED: Negative for edema General Extremity: Negative for edema Neuro oriented x3, CN's II-XII intact bilaterally, no sensory deficits noted and gait normal Sensorium / Orientation: awake, alert, oriented to person, oriented to place and oriented to time Motor Exam: strength 5/5 throughout and strength abnormal Psych mental status grossly normal Skin no rashes or lesions noted and no wounds Discharge Plan Triage Chief Complaint: Shortness of Breath ED Provider: Bossman Sanders Dx/Rx/DC Orders Prescriptions: No Action furosemide 20 mg tablet 20 mg PO QDAY PRN (Reason: for 2lb weight gain) metformin 500 mg tablet 500 mg PO BID lamotrigine 100 mg tablet 100 mg PO QDAY escitalopram oxalate 5 mg tablet 5 mg PO QDAY polyethylene glycol 3350 [Miralax] 17 gram/dose powder 17 g PO DAILY docusate sodium 100 mg capsule 100 mg PO DAILY Patient Comments: stopped 05/30/25 baclofen 5 mg tablet 5 mg PO DAILY Patient Comments: PRESCRIPTION FOR 4 TIMES DAILY ferrous sulfate [Feosol] 325 mg (65 mg iron) tablet 325 mg PO QDAY Linzess 145 mcg capsule 145 mcg PO QAM Qty: 60 2RF Patient Comments: stopped 05/30/25 ondansetron 4 mg tablet,disintegrating 4 mg PO Q8H Qty: 30 3RF trazodone 50 MG tablet 50 mg PO DAILY clonazepam 1 MG tablet 1 mg PO QHS aspirin 81 mg tablet,delayed release (DR/EC) 81 mg PO .COMPLEX Rx Instructions: 81 mg orally EVERY OTHER DAY; rosuvastatin 20 mg tablet 20 mg PO QHS pantoprazole 40 mg Tablet,Delayed Release (Dr/Ec) 40 mg PO DAILY 30 Days Qty: 30 0RF oxycodone 5 mg Tablet 5 mg PO Q6H PRN PRN (Reason: Pain Score 6-10) 7 Days Qty: 28 0RF Austedo XR 6 mg tablet extended release 24 hr 6 mg PO DAILY Patient Comments: stopped 06/02/25 phenazopyridine 100 mg tablet 100 mg PO TID PRN PRN (Reason: pain) lisinopril 10 mg Tablet 5 mg PO DAILY Qty: 30 0RF Rx Instructions: Hold for SBP less than 130 mmHg hyoscyamine sulfate 0.125 mg tablet 0.125 mg PO TID PRN (Reason: dyspepsia) Qty: 90 2RF Primary Care Provider: Marci Nuñez Referrals: Marci Nuñez, [Primary Care Provider] - Print Language: Vietnamese
[2025-07-01 17:20] LABS: Hematocrit 31.8 % (37-47); Hemoglobin 10.3 g/dL (12.0-15.0); Immature Granulocytes Count 0.010 X10^3/uL (0.0-0.0); Mean Corp Hgb Conc 32.4 g/dL (32-36); Mean Corpuscular Volume 91.9 fL (81-99); Mean Platelet Vol. 10.6 fl (6.2-12.0); NRBC Flagged by Analyzer 0 % (0-5); Platelet Count 192 K/mm3 (150-450); RBC Distribution Width CV 13.2 % (11.6-14.6); RBC Distribution Width SD 44.8 fl (35.1-43.9); Red Blood Count 3.46 M/mm3 (4.2-5.4); White Blood Count 4.0 K/mm3 (4.4-11.0)
[2025-07-01 17:33] LABS: D-Dimer Quantitative (DVT/PE) 1.39 FEU/ug/m (0.27-0.49)
--- NOTE | 2025-07-01 17:37 | RAD_ITS ---
PROCEDURE: CHEST 1 VIEW (PORTABLE) 07/01/2025 REASON FOR EXAM: DYSPNEA TECHNIQUE: Frontal view of the chest. COMPARISON: CTA chest, abdomen and pelvis 06/02/2025, chest radiograph 11/02/2024. FINDINGS: Hardware: Stable left-sided ICD pacemaker device. Heart: The heart size is normal. Lungs: Stable findings of emphysema with scattered areas of scarring. Interval improvement in the bibasilar ([id number]-[id number]) pulmonary opacities. No pleural effusion or pneumothorax. Bones: Degenerative changes are identified within the thoracic spine. RAD/Chest 1 View (Portable) IMPRESSION: Improvement in the bibasilar pulmonary opacities, compatible with pneumonitis/p neumonia. Reading Location: [id number]
[2025-07-01 17:47] LABS: Anion Gap 8 (5-15); BUN 12 mg/dL (4-19); BUN/Creat Ratio 13.2 RATIO (10-20); Calcium,Total 8.1 mg/dL (7.6-11.0); Carbon Dioxide 24.6 mmol/L (21.0-32.0); Chloride 108 mmol/L (98-108); Estimated Creatinine Clearance 50.57 ml/min (50-250); Glucose 100 mg/dL (70-99); Potassium 3.6 mmol/L (3.3-5.1); Pro- Brain NATRIURETIC PEPTIDE 948 pg/mL (<=900); Troponin T High Sensitivity 11 ng/L (<=14)
--- NOTE | 2025-07-01 18:03 | CT_ITS ---
PROCEDURE: CTA CHEST W/WO CONTRAST 07/01/2025 REASON FOR EXAM: DYSPNEA, ELEVATED D-DIMER TECHNIQUE: CTA axial imaging of the chest with intravenous contrast. Coronal and Sagittal reconstruction series were provided. 3D, 3D post processing, 3D reconstructions, Maximum intensity projection (MIPs) Volume rendering and Shaded surface rendering was provided. PATIENT PREPARATION: Per protocol CONTRAST: Isovue 370 VOLUME: 100mL One or more dose reduction techniques were used (e.g., Automated exposure control, adjustment of the mA and/or kV according to patient size, use of iterative reconstruction technique). RADIATION DOSE SUMMARY: DLP: 200 mGycm COMPARISON: CTA chest, abdomen and pelvis 06/02/2025. FINDINGS: Hardware: Left chest wall cardiac conduction device. Lymph nodes: No axillary, mediastinal or hilar lymphadenopathy. Heart: The heart is normal in size without pericardial effusion. The great vessels are normal in caliber. Moderate coronary artery and thoracic aortic calcifications. Pulmonary Vessels: No central filling defect within the segmental or subsegmental pulmonary arteries. Lungs and Airways: Trace retained secretions within the central airways. No significant change in the bilateral ([id number]) ground-glass opacities within the dependent and bibasilar lungs. Mild bronchiectasis. Trace right pleural effusion. No pneumothorax. Upper Abdomen: Calcific plaque of the visualized abdominal aorta. Bones: Thoracic spondylosis. CT/CTA Chest W/WO Contrast IMPRESSION: 1. No evidence of pulmonary embolism. 2. Stable ground-glass opacities throughout the dependent and bibasilar lungs, compatible with pneumonitis/pneumonia. Clinical correlation recommended. Reading Location: [id number]
--- OUTSIDE RECORDS SUMMARY | 2025-07-01 18:23 | XMS RPT_ITS | CCD ---
Author Organization [facility] CliniSymo Care Team Providers Care Weave Defect Charting Clerk Name Role Phone DR LARY BHANDARI DO Primary Care Physician [phone] Jesus Manuel Martinez DO Primary Care Provider Jesus Manuel Martinez DO Primary Care Provider Jesus Manuel Martinez DO Primary Care Provider DR LARY BHANDARI DO Primary Care Physician [phone] DR LARY BHANDARI DO Primary Care Physician [phone] Jesus Manuel Martinez DO Primary Care Provider Odilon E COMMERCE RETAILER.NIRMALA, Kailyn K Unavailable ADRIENNE BYERS DO Primary Care Physician [phone] Gilbert E COMMERCE RETAILER.NIRMALA, Gissell Unavailable Jesus Manuel Martinez DO Primary Care Provider Odilon E COMMERCE RETAILER.NIRMALA, Kailyn K Unavailable Gilbert E COMMERCE RETAILER.NIRMALA, Gissell Unavailable Dr. Adrienne Byers Primary Care Provider Dr. Alexsandra Vela Attending Provider Dr. Jose Turk Attending Provider Dr. Uday Orosco Emergency Provider Dr. Tony Corona Admit Provider Unavailabl e Dr. Tony Corona Other Provider Unavailabl e Dr. Ben Johnson Attending Provider Dr. Ben Johnson Other Provider Dr. Adrienne Byers Referring Provider [phone] Brisa Jeninngs Attending Provider Unavailable Le, Dr. David Emergency [...] Other Provider Dr. Heike Horta Attending Provider KorDr. Heike puente Other Provider Levy, Dr. Torrez Attending Provider Dr. Yoandy Thakkar Other Provider Dr. Ganesh Kiran Attending Provider Dr. Ganesh Kiran Other Provider Dr. Adrienne Christine Attending Provider [phone] Ben Johnson Referring Provider Dr. Heike Horta Referring Provider Jesus Manuel Martinez DO Primary Care Provider James MORENO, ar A Unavailable ADRIENNE BYERS DO Primary Care Unavailable ADRIENNE BYERS DO Attending Unavailable HALKO DO, ADRIENNE Primary Care Unavailable NANDINI GORMAN, ANIRUDH Mace Attending Dennis penningtonle HALKO DO, ADRIENNE Primary Care Unavailable HATTIE [...] Unavailable JAMES MORENO, CARLA HANSON Attending Unavailab LABORATORYOrdered By: Cheli Kuo on 02-04-2022 Bilirubin.direct [...] Interpretation Code AO Chemistry S LABORATORYOrdered By: Nuiku on 12-25-2021 Blood Glucose Testing Reason Routine (12/25/21 10:58 AM) [place] Work Phone: Glucose [Mass/Vol] 159 mg/dL Invalid Interpretation Code 82 - 115 mg/dL [place] Work Phone: Blood Glucose Testing Reason Routine (12/25/21 6:53 AM) [place] Work Phone: Glucose [Mass/Vol] 112 mg/dL Invalid Interpretation Code 82 - 115 mg/dL [place] Work Phone: LABORATORYOrdered By: [employer] SYSTEM on 12-25-2021 Base excess Calc (BldMV) [...] - 10.1 mg/dL ADM SS Chloride [Moles/Vol] 104 mmol/L [...] Invalid Interpretation Code 50 - 199 mg/dL ADM SS Cholesterol in HDL [Mass/Vol] 26 mg/dL Invalid Interpretation Code 40 - 59 mg/dL ADM SS Cholesterol in LDL [Mass/Vol] 37 mg/dL Invalid Interpretation Code 0 - 129 mg/dL AH ADM SS Triglyceride [Mass/Vol] 179 mg/dL Invalid Interpretation Code 3 - 149 mg/dL AH ADM SS LABORATORYOrdered By: Shanika Malave on 12-24-2021 Blood Glucose Testing Reason Routine (12/24/21 9:09 PM) [place] Work Phone: Glucose [Mass/Vol] 151 mg/dL Invalid Interpretation Code 82 - 115 mg/dL [place] Work Phone: LABORATORYOrdered By: SYSTEM SYSTEM on 12-24-2021 Troponin I.cardiac DL <= 0.01 ng/mL [Mass/Vol] 63.97 ng/L Invalid Interpretation Code 0.00 - 34.00 ng/L AH ADM SS Albumin [Mass/Vol] 3.0 G/dL Invalid Interpretation Code 3.2 - 4.8 G/dL AH ADM SS Albumin/Globulin [Mass ratio] 0.9 {ratio} Invalid Interpretation Code 0.9 - 1.6 ratio AH ADM SS ALP [Catalytic activity/Vol] 54 U/L Invalid Interpretation Code 38 - 126 U/L AH ADM SS ALT [Catalytic activity/Vol] 13 U/L Invalid Interpretation Code 10 - 49 U/L AH ADM SS AST [Catalytic activity/Vol] 9 U/L Invalid Interpretation Code 8 - 34 U/L AH ADM SS Base excess Calc (BldMV) [Moles/Vol] [...] 110 mEq/L AH ADM SS CO2 [Moles/Vol] 24 mmol/L Invalid [...] rate/Area] ml/min/1.73sqm Invalid Interpretation Code ADM SS GFR/1.73 sq M.predicted among non-blacks MDRD (S/P/Bld) [Vol rate/Area] ml/min/1.73sqm Invalid Interpretation Code ADM SS Globulin (S) [Mass/Vol] 3.5 G/dL Invalid Interpretation Code 1.5 - 3.8 G/dL ADM SS Glucose [Mass/Vol] 133 mg/dL Invalid Interpretation Code 82 - 115 mg/dL ADM SS HbA1c (Bld) [Mass fraction] 6.3 [...] Invalid Interpretation Code 1.6 - 2.4 mg/dL ADM SS MCH (RBC) [Entitic mass] 29.7 pg Invalid Interpretation Code 27.0 - 33.0 pg Remisol SS MCHC (RBC) [Mass/Vol] 33.6 G/dL Invalid Interpretation Code 32.0 - 36.0 G/dL Remisol SS MCV (RBC) [Entitic vol] 88.4 fL Invalid Interpretation Code 80.0 - 99.0 fL Remisol SS Monocytes (Bld) [#/Vol] 0.30 103/mcL Invalid Interpretation Code 0.09 - 1.40 10^3/mcL AH Remisol SS Monocytes/100 WBC (Bld) 4.4 % Invalid Interpretation Code 2.0 - 13.0 % Remisol SS Natriuretic peptide.B prohormone N-Terminal [Mass/Vol] 35608 pg/mL Invalid Interpretation Code 0 - 900 [...] Code 0.00 - 34.00 ng/L ADM SS TSH Qn 3.193 mIU/mL Invalid Interpretation Code 0.550 - 4.780 mIU/mL AH ADM SS Urea nitrogen [Mass/Vol] 18.0 mg/dL Invalid Interpretation Code 8.0 - 22.0 mg/dL AH ADM SS Urea nitrogen/Creatinine [Mass ratio] 20.5 ratio Invalid Interpretation Code 10.0 - 22.0 ratio AH ADM SS WBC (Bld) [#/Vol] 7.60 103/mcL Invalid Interpretation Code 4.50 - 10.80 10^3/mcL Remisol SS LABORATORYOrdered By: Birdie Nieves on [...] AH Auto Urine SS LABORATORYOrdered By: Ellie Sharif on 12-23-2021 ADMITTED TO INTENSIVE CARE UNIT [...] 27 ratio AO ADM SS LABORATORYOrdered By: [employer] SYSTEM on 12-09-2021 GFR 68 ml/min/1.73sqm Invalid Interpretation Code AO Chemistry S GFR Non- 56 ml/min/1.73sqm Invalid Interpretation Code AO Chemistry S LABORATORYOrdered By: Ivania Lott on 12-05-2021 Glucose [Mass/Vol] 169 mg/dL Invalid Interpretation Code 82 - 115 mg/dL [place] Work Phone: Blood Glucose Testing Reason Routine (12/05/21 8:07 AM) [place] Work Phone: Glucose [Mass/Vol] 160 mg/dL Invalid Interpretation Code 82 - 115 mg/dL [place] Work Phone: LABORATORYOrdered By: SYSTEM SYSTEM on [...] Glucose Testing Reason Routine (12/04/21 9:52 PM) [place] Work Phone: Glucose [Mass/Vol] 112 mg/dL Invalid Interpretation Code 82 - 115 mg/dL [place] Work Phone: LABORATORYOrdered By: Sanford Stiles on 12-04-2021 Blood Glucose Testing Reason Routine (12/04/21 4:08 PM) [place] Work Phone: LABORATORYOrdered By: Marvel on 12-04-2021 Anisocytosis Ql (Bld) Slight *NA* [...] [Vol rate/Area] ml/min/1.73sqm Invalid Interpretation Code AH Chemistry S GFR/1.73 sq M.predicted among non-blacks [...] Code AH Auto Coag SS LABORATORYOrdered By: [employer] on 12-02-2021 Basophils (Bld) [#/Vol] 0.00 [...] 12:52 PM) Invalid Interpretation Code 1.006-1.02 9 AH [...] Blood Culture: No Growth at 5 days. [place] Work Phone: LABORATORYOrdered By: SYSTEM SYSTEM on [...] Code AH BB Auto SS LABORATORYOrdered By: SYSTEM SYSTEM on 11-27-2021 CRP [Mass/Vol] 5.2 mg/dL [...] Code Not Detected AH Auto Viro/Sero SS No Panel Informationon 11-27 Microscopic examination of blood, culture Blood Culture: No Growth at 5 days. [place] Work Phone: Culture Urine No growth at 48 hours. [place] Work Phone: LABORATORYOrdered By: Ynana navarrete on 11-26-2021 Barometric Pressure 703 mm[Hg] [...] Hg AH Auto Chem SS CO2 [Moles/Vol] 31.1 mmol/L [...] Interpretation Code 0.00 - 34.00 ng/L ADM LABORATORYOrdered By: TESSIE MIRANDA CONTRIBUTOR_SYSTEM on 11-22-2021 Coccidioides Ab, IgG 0.2 Invalid Interpretation Code [facility] Comment on above: Result Comment: Refe rence [...] Coccidioides Ab, IgM 0.1 Invalid Interpretation Code [facility] Comment on above: Result Comment: Refe rence [...] represented in the EDNA tests. Performed By: [employer] [address] [place] [id number] Float Remover: Nicolette Bolton MD LABORATORYOrdered By: Marvel on 11-22-2021 Natriuretic peptide.B prohormone N-Terminal [Mass/Vol] [...] 2.0 mmol/L Auto Chem SS LABORATORYOrdered By: Yanna navarrete [...] Comment on above: Result Comment: [place] [id number] FLU B PCR Negative 5 (11/22/21 6:28 AM) Invalid Interpretation Code Negative AH Auto Viro/Sero SS Comment on above: Result Comment: [place] s [id number] Hospitalized Yes (11/22/21 6:28 AM) Invalid Interpretation [...] Comment on above: Result Comment: Note s [id number] SARS-CoV-2 (COVID-19) RNA ENRIQUE+probe Ql (Unsp spec) Negative 3 (11/22/21 6:28 AM) Invalid Interpretation Code Negative AH Auto Viro/Sero SS Comment on above: Result Comment: Note s [id number] Symptomatic as Defined by CDC Yes (11/22/21 [...] 5:28 AM) Invalid Interpretation Code 1.006-1.02 9 Auto Urine SS UA Specimen Type Catheter (11/22/21 5:28 AM) Invalid Interpretation Code Auto Urine SS UA Squam Epithelial Rare /HPF Invalid Interpretation Code 0-20/HPF Auto Urine SS UA Urobilinogen 1.0 E.U./dL [...] Viro/Sero SS LABORATORYOrdered By: Janet Webber on 01-01-2022 Mycoplasma IgG Positive Invalid Interpretation Code AH Auto Viro/Sero SS LABORATORYOrdered By: Ellie Sharif on 11-22-2021 Base excess Calc (Bld) [Moles/Vol] [...] respiratory demarco present. Sensitivity testing not indicated. [place] Work Phone: Comment on above: Requests for Mycopla sma, Legionella, Fungi, Mycobacteria, Chlamydia, and Viruses require ordering of those individual tests. GS Rare Epithelial cell s Rare Polymorphonuclear cells No organisms seen. [place] Work Phone: Comment on above: Requests for Mycopla sma, Legionella, Fungi, Mycobacteria, Chlamydia, and Viruses require ordering of those individual tests. Culture Urine No growth at 48 hours. [place] Work Phone: Legionella Urine Ag Presumptive negative for L. pneumophila serogroup 1 antigen in urine, suggesting no recent or current infection. Legionnaire's disease cannot be ruled out since other serogroups and species may also cause disease. [place] Work Phone: Streptococcus Pneumoniae Urine Antig Presumptive negative for pneumococcal pneumonia, suggesting no current or recent pneumococcal infection. Infection due to Strep pneumoniae cannot be ruled out since the antigen present in the sample may be below the detection limit of the test. [place] Work Phone: Comment on above: This test has not be en evaluated on patients taking antibiotics for greater than 24 hours or on patients who have recently completed an antibiotic regimen. The accuracy of this test has not been proven in young children. Microscopic examination of blood, culture Blood Culture: No Growth at 5 days. [place] Work Phone: LABORATORYOrdered By: Ellie Sharif on 11-21-2021 ADMITTED TO INTENSIVE CARE UNIT [...] AO ADM SS EMPLOYED IN A HEALTHCARE SETTING:FIND:PT:^MATTE NT:ORD: No (11/21/21 9:56 PM) Invalid Interpretation [...] Heme SS RESIDES IN A [place]GREGATE CARE SETTING:FIND:PT:^JARETH NT:ORD: No (11/21/21 9:56 PM) Invalid Interpretation [...] SURGICAL PATHOLOGYon 020 SURGICAL PATHOLOGY Specimen #: [id number] Submitting Physician: RADHA WEIR M.D. FINAL [...] in one cassette. Gross examination performed at [facility], [address] [place] [address] JT 04/09/2020 10:54:28 PM Date of Report: 04/10/2020 Date of Procedure: 04/09/2020 Date of Receipt: 04/09/2020 Submitted by: RADHA WEIR M.D. Location: Diagnostic interpretation performed at [place] [address]. [place] Number: [id number] [facility] Reference [facility] Comment on above: Performed By: #### S #### See report for performing lab information. SURGICAL PATHOLOGYon 020 SURGICAL PATHOLOGY Specimen #: [id number] Submitting Physician: DIPTI GONZALEZ FINAL DIAGNOSIS [...] in one cassette. Gross examination performed at [facility], [address] [place] [address] 01/16/2020 11:35:43 PM Date of Report: 01/17/2020 Date of Procedure: 01/16/2020 Date of Receipt: 01/16/2020 Submitted by: DIPTI GONZALEZ Location: Diagnostic interpretation performed at [facility], [address] [place] [address]. CLIA Number: [id number] Normal [facility] Reference Lab Comment on above: Performed By: #### S #### See report for performing lab information. Vital Signs Date Time Vital Sign Value Performing Clinician Facility 06-11-2025 09:06-0400 Body temperature 98.1 [degF] Dr. Marci Nuñez DO Work Phone: [facility] 06-11-2025 09:06-0400 Diastolic blood pressure 63 mm[Hg] Dr. Marci Nuñez DO Work Phone: [facility] 06-11-2025 09:06-0400 Heart rate 77 /min Dr. Marci Nuñez DO Work Phone: [facility] 06-11-2025 09:06-0400 Respiratory rate 18 /min Dr. Marci Nuñez DO Work Phone: [facility] 06-11-2025 09:06-0400 SaO2% (BldA) [Mass fraction] 98 % Dr. Marci Nuñez DO Work Phone: [facility] 06-11-2025 09:06-0400 Systolic blood pressure 113 mm[Hg] Dr. Marci Nuñez DO Work Phone: [facility] 06-11-2025 08:00-0400 Inhaled oxygen flow rate 2 L/min Dr. Marci Nuñez DO Work Phone: [facility] 06-07-2025 13:19-0400 Body height 172.[address] Marci Nuñez DO Work Phone: [facility] 06-07-2025 13:19-0400 Body mass index (BMI) [Ratio] 19.5 kg/m2 Dr. Marci Nuñez DO Work Phone: [facility] 06-07-2025 13:19-0400 Body weight 58.[address] Marci Nuñez DO Work Phone: [facility] 06-02-2025 14:09-0400 Inhaled oxygen flow rate 2 L/min Dr. Marci Nuñez DO Work Phone: [facility] 06-02-2025 14:09-0400 SaO2% (BldA) [Mass fraction] 97 % Dr. Marci Nuñez DO Work Phone: [facility] 06-02-2025 14:00-0400 Body temperature 98.4 [degF] Dr. Marci Nuñez DO Work Phone: [phone] [address] 06-02-2025 14:00-0400 Diastolic blood pressure 53 mm[Hg] Dr. Marci Nuñez DO Work Phone: [facility] 06-02-2025 14:00-0400 Heart rate 69 /min Dr. Marci Nuñez DO Work Phone: [facility] 06-02-2025 14:00-0400 Respiratory rate 12 /min Dr. Marci Nuñez DO Work Phone: [facility] 06-02-2025 14:00-0400 Systolic blood pressure 106 mm[Hg] Dr. Marci Nuñez DO Work Phone: [facility] 06-02-2025 10:33-0400 Body height 172.[address] Marci Nuñez DO Work Phone: 7(266)[phone] [place] [address] 06-02-2025 10:33-0400 Body mass index (BMI) [Ratio] 20.5 kg/m2 Dr. Marci Nuñez DO Work Phone: [facility] 06-02-2025 10:33-0400 Body weight 61.[address] Marci Nuñez DO Work Phone: [facility] 05-29-2025 15:17-0400 Body height 172.[address] Marci Nuñez DO Work Phone: [facility] 05-29-2025 15:17-0400 Body mass index (BMI) [Ratio] 19.9 kg/m2 Dr. Marci Nuñez DO Work Phone: 6([phone] [place] [address] 05-29-2025 15:17-0400 Body weight 59.[address] Marci Nuñez DO Work Phone: 2(327)[phone] [place] [address] 05-29-2025 15:17-0400 Diastolic blood pressure 57 mm[Hg] Dr. Marci Nuñez DO Work Phone: 2(361)[phone] [address] 05-29-2025 15:17-0400 Heart rate 80 /min Dr. Marci Nuñez DO Work Phone: 6(916)[phone] [place] [address] 05-29-2025 15:17-0400 Respiratory rate 18 /min Dr. Marci Nuñez DO Work Phone: 1(121)[phone] [place] [address] 05-29-2025 15:17-0400 Systolic blood pressure 99 mm[Hg] Dr. Marci Nuñez DO Work Phone: 0(214)[phone] [place] [address] 05-22-2025 20:53-0400 Body temperature 98.5 [degF] Dr. Marci Nuñez DO Work Phone: [facility] 05-22-2025 20:53-0400 Diastolic blood pressure 56 mm[Hg] Dr. Marci Nuñez DO Work Phone: [facility] 05-22-2025 20:53-0400 Heart rate 69 /min Dr. Marci Nuñez DO Work Phone: 6(293)[phone] [place] [address] 05-22-2025 20:53-0400 Respiratory rate 16 /min Dr. Marci Nuñez DO Work Phone: [facility] 05-22-2025 20:53-0400 SaO2% (BldA) [Mass fraction] 94 % Dr. Marci Nuñez DO Work Phone: [facility] 05-22-2025 20:53-0400 Systolic blood pressure 111 mm[Hg] Dr. Marci Nuñez DO Work Phone: [facility] 05-22-2025 19:08-0400 Inhaled oxygen flow rate 2 L/min Dr. Marci Nuñez DO Work Phone: [facility] 05-22-2025 14:39-0400 Body height 172.[address] Marci Nuñez DO Work Phone: [facility] 05-22-2025 14:39-0400 Body mass index (BMI) [Ratio] 21.1 kg/m2 Dr. Marci Nuñez DO Work Phone: [facility] 05-22-2025 14:39-0400 Body weight 62.[address] Marci Nuñez DO Work Phone: [facility] 05-03-2025 10:08-0400 Heart rate 66 /min Dr. Marci Nuñez DO Work Phone: [facility] 05-03-2025 10:07-0400 Diastolic blood pressure 59 mm[Hg] Dr. Marci Nuñez DO Work Phone: [facility] 05-03-2025 10:07-0400 Systolic blood pressure 112 mm[Hg] Dr. Marci Nuñez DO Work Phone: [facility] 05-03-2025 08:22-0400 Body temperature 98.4 [degF] Dr. Marci Nuñez DO Work Phone: [facility] 05-03-2025 08:22-0400 Respiratory rate 16 /min Dr. Marci Nuñez DO Work Phone: [facility] 05-03-2025 08:22-0400 SaO2% (BldA) [Mass fraction] 94 % Dr. Marci Nuñez DO Work Phone: [facility] 05-01-2025 14:36-0400 Body mass index (BMI) [Ratio] 20.6 kg/m2 Dr. Marci Nuñez DO Work Phone: [facility] 05-01-2025 14:36-0400 Body weight 61.[address] Marci Nuñez DO Work Phone: [facility] 04-25-2025 20:00-0400 Heart rate 64 /min Dr. Marci Nuñez DO Work Phone: [facility] 04-25-2025 16:36-0400 Body mass index (BMI) [Ratio] 20.4 kg/m2 Dr. Marci Nuñez DO Work Phone: [facility] 04-25-2025 16:36-0400 Body weight 60.[address] Marci Nuñez DO Work Phone: [facility] 04-25-2025 15:10-0400 Body height 172.[address] Marci Nuñez DO Work Phone: [facility] 04-25-2025 09:01-0400 Body temperature 97.9 [degF] Dr. Marci Nuñez DO Work Phone: [facility] 04-25-2025 09:01-0400 Diastolic blood pressure 51 mm[Hg] Dr. Marci Nuñez DO Work Phone: [facility] 04-25-2025 09:01-0400 Respiratory rate 16 /min Dr. Marci Nuñez DO Work Phone: [facility] 04-25-2025 09:01-0400 Systolic blood pressure 111 mm[Hg] Dr. Marci Nuñez DO Work Phone: [facility] 04-25-2025 08:14-0400 Body temperature 97.4 [degF] Dr. Marci Nuñez DO Work Phone: [facility] 04-25-2025 08:14-0400 Diastolic blood pressure 57 mm[Hg] Dr. Marci Nuñez DO Work Phone: [facility] 04-25-2025 08:14-0400 Heart rate 63 /min Dr. Marci Nuñez DO Work Phone: [facility] 04-25-2025 08:14-0400 Respiratory rate 14 /min Dr. Marci Nuñez DO Work Phone: [facility] 04-25-2025 08:14-0400 SaO2% (BldA) [Mass fraction] 94 % Dr. Marci Nuñez DO Work Phone: [facility] 04-25-2025 08:14-0400 Systolic blood pressure 108 mm[Hg] Dr. Marci Nuñez DO Work Phone: [facility] 04-25-2025 06:48-0400 Body mass index (BMI) [Ratio] 45 kg/m2 Dr. Marci Nuñez DO Work Phone: [facility] 04-25-2025 06:48-0400 Body weight 134.[address] Marci Nuñez DO Work Phone: [facility] 04-20-2025 14:41-0400 Body temperature 98.7 [degF] Dr. Marci Nuñez DO Work Phone: [facility] 04-20-2025 14:41-0400 Diastolic blood pressure 57 mm[Hg] Dr. Marci Nuñez DO Work Phone: [facility] 04-20-2025 14:41-0400 Heart rate 60 /min Dr. Marci Nuñez DO Work Phone: [facility] 04-20-2025 14:41-0400 Respiratory rate 16 /min Dr. Marci Nuñez DO Work Phone: [facility] 04-20-2025 14:41-0400 SaO2% (BldA) [Mass fraction] 97 % Dr. Marci Nuñez DO Work Phone: [facility] 04-20-2025 14:41-0400 Systolic blood pressure 136 mm[Hg] Dr. Marci Nuñez DO Work Phone: [facility] 04-19-2025 13:18-0400 Body height 172.[address] Marci Nuñez DO Work Phone: [facility] 04-19-2025 13:18-0400 Body mass index (BMI) [Ratio] 20.7 kg/m2 Dr. Marci Nuñez DO Work Phone: [facility] 04-19-2025 13:18-0400 Body weight [address] Marci Nuñez DO Work Phone: [facility] 04-19-2025 12:00-0400 Diastolic blood pressure 75 mm[Hg] Dr. Marci Nuñez DO Work Phone: [facility] 04-19-2025 12:00-0400 Heart rate 77 /min Dr. Marci Nuñez DO Work Phone: [facility] 04-19-2025 12:00-0400 Respiratory rate 18 /min Dr. Marci Nuñez DO Work Phone: [facility] 04-19-2025 12:00-0400 SaO2% (BldA) [Mass fraction] 96 % Dr. Marci Nuñez DO Work Phone: [facility] 04-19-2025 12:00-0400 Systolic blood pressure 174 mm[Hg] Dr. Marci Nuñez DO Work Phone: [facility] 04-19-2025 11:30-0400 Body temperature 98 [degF] Dr. Marci Nuñez DO Work Phone: [facility] 04-19-2025 03:35-0400 Body height 172.[address] Marci Nuñez DO Work Phone: [facility] 04-19-2025 03:35-0400 Body mass index (BMI) [Ratio] 21.6 kg/m2 Dr. Marci Nuñez DO Work Phone: [facility] 04-19-2025 03:35-0400 Body weight 64.[address] Marci Nuñez DO Work Phone: [facility] 04-04-2025 12:35-0400 Diastolic blood pressure 47 mm[Hg] Mri (1.5t) [facility] 04-04-2025 12:35-0400 Heart rate 90 /min Mri (1.5t) [facility] Comment on above: pacer taken out of MRI safe mode 04-04-2025 12:35-0400 Respiratory rate 18 /min Mri (1.5t) [facility] 04-04-2025 12:35-0400 SaO2% (BldA) [Mass fraction] 98 % Mri (1.5t) [facility] 04-04-2025 12:35-0400 Systolic blood pressure 125 mm[Hg] Mri (1.5t) [facility] 03-10-2025 14:00-0400 Diastolic blood pressure 70 mm[Hg] Dr. Marci Nuñez DO Work Phone: [facility] 03-10-2025 14:00-0400 Heart rate 60 /min Dr. Marci Nuñez DO Work Phone: [facility] 03-10-2025 14:00-0400 Respiratory rate 18 /min Dr. Marci Nuñez DO Work Phone: [facility] 03-10-2025 14:00-0400 SaO2% (BldA) [Mass fraction] 97 % Dr. Marci Nuñez DO Work Phone: [facility] 03-10-2025 14:00-0400 Systolic blood pressure 151 mm[Hg] Dr. Marci Nuñez DO Work Phone: [facility] 03-10-2025 11:28-0400 Body mass index (BMI) [Ratio] 20.9 kg/m2 Dr. Marci Nuñez DO Work Phone: [facility] 03-10-2025 11:28-0400 Body weight 62.[address] Marci Nuñez DO Work Phone: [facility] 03-10-2025 11:27-0400 Body height 172.[address] Marci Nuñez DO Work Phone: [facility] 03-10-2025 11:27-0400 Body temperature 97.8 [degF] Dr. Marci Nuñez DO Work Phone: [facility] 02-27-2025 15:22-0400 Body mass index (BMI) [Ratio] 20.78 kg/m2 Leyla Tse MD Work Phone: [facility] 02-27-2025 15:22-0400 Body weight 62 kg Leyla Tse MD Work Phone: [facility] 02-27-2025 15:22-0400 SaO2% (BldA) [Mass fraction] 96 % Leyla Tse MD Work Phone: [facility] 02-13-2025 09:10-0400 Body mass index (BMI) [Ratio] 20.7 kg/m2 Dr. Marci Nuñez DO Work Phone: [facility] 02-13-2025 09:10-0400 Body weight 61.[address] Marci Nuñez DO Work Phone: [facility] 02-13-2025 09:10-0400 Diastolic blood pressure 67 mm[Hg] Dr. Marci Nuñez DO Work Phone: [facility] 02-13-2025 09:10-0400 Systolic blood pressure 107 mm[Hg] Dr. Marci Nuñez DO Work Phone: [facility] 01-23-2025 13:16-0500 Body temperature 97.3 [degF] Dr. Marci Nuñez DO Work Phone: [facility] 01-23-2025 13:16-0500 Diastolic blood pressure 66 mm[Hg] Dr. Marci Nuñez DO Work Phone: [facility] 01-23-2025 13:16-0500 Heart rate 62 /min Dr. Marci Nuñez DO Work Phone: [facility] 01-23-2025 13:16-0500 Respiratory rate 16 /min Dr. Marci Nuñez DO Work Phone: [facility] 01-23-2025 13:16-0500 SaO2% (BldA) [Mass fraction] 95 % Dr. Marci Nuñez DO Work Phone: [facility] 01-23-2025 13:16-0500 Systolic blood pressure 121 mm[Hg] Dr. Marci Nuñez DO Work Phone: [facility] 01-18-2025 08:06-0500 Body mass index (BMI) [Ratio] 20 kg/m2 Dr. Marci Nuñez DO Work Phone: [facility] 01-18-2025 08:06-0500 Body weight 59.[address] Marci Nuñez DO Work Phone: [facility] 01-18-2025 08:06-0500 Diastolic blood pressure 73 mm[Hg] Dr. Marci Nuñez DO Work Phone: [facility] 01-18-2025 08:06-0500 Heart rate 97 /min Dr. Marci Nuñez DO Work Phone: [facility] 01-18-2025 08:06-0500 Respiratory rate 18 /min Dr. Marci Nuñez DO Work Phone: [facility] 01-18-2025 08:06-0500 SaO2% (BldA) [Mass fraction] 97 % Dr. Marci Nuñez DO Work Phone: [facility] 01-18-2025 08:06-0500 Systolic blood pressure 114 mm[Hg] Dr. Marci Nuñez DO Work Phone: [facility] 12-22-2024 11:30-0500 Diastolic blood pressure 75 mm[Hg] Dr. Marci Nuñez DO Work Phone: [facility] 12-22-2024 11:30-0500 Heart rate 85 /min Dr. Marci Nuñez DO Work Phone: [facility] 12-22-2024 11:30-0500 Respiratory rate 16 /min Dr. Marci Nuñez DO Work Phone: 4([phone] [place] [address] 12-22-2024 11:30-0500 SaO2% (BldA) [Mass fraction] 99 % Dr. Marci Nuñez DO Work Phone: [facility] 12-22-2024 11:30-0500 Systolic blood pressure 117 mm[Hg] Dr. Marci Nuñez DO Work Phone: [facility] 12-19-2024 15:14-0500 Body temperature 98 [degF] Dr. Marci Nuñez DO Work Phone: [facility] 12-19-2024 15:14-0500 Body weight 60.[address] Marci Nuñez DO Work Phone: [facility] 12-19-2024 15:14-0500 Diastolic blood pressure 67 mm[Hg] Dr. Marci Nuñez DO Work Phone: [facility] 12-19-2024 15:14-0500 Heart rate 74 /min Dr. Marci Nuñez DO Work Phone: [facility] 12-19-2024 15:14-0500 Respiratory rate 16 /min Dr. Marci Nuñez DO Work Phone: [facility] 12-19-2024 15:14-0500 SaO2% (BldA) [Mass fraction] 96 % Dr. Marci Nuñez DO Work Phone: [facility] 12-19-2024 15:14-0500 Systolic blood pressure 123 mm[Hg] Dr. Marci Nuñez DO Work Phone: [facility] 11-28-2024 13:54-0500 Body mass index (BMI) [Ratio] 20 kg/m2 Dr. Marci Nuñez DO Work Phone: [facility] 11-28-2024 13:54-0500 Body weight 59.[address] Marci Nuñez DO Work Phone: [facility] 11-28-2024 13:54-0500 Diastolic blood pressure 57 mm[Hg] Dr. Marci Nuñez DO Work Phone: [facility] 11-28-2024 13:54-0500 Heart rate 85 /min Dr. Marci Nuñez DO Work Phone: [facility] 11-28-2024 13:54-0500 Respiratory rate 18 /min Dr. Marci Nuñez DO Work Phone: [facility] 11-28-2024 13:54-0500 SaO2% (BldA) [Mass fraction] 96 % Dr. Marci Nuñez DO Work Phone: [facility] 11-28-2024 13:54-0500 Systolic blood pressure 92 mm[Hg] Dr. Marci Nuñez DO Work Phone: [facility] 11-18-2024 17:16-0500 Body temperature 98.7 [degF] Dr. Marci Nuñez DO Work Phone: [facility] 11-18-2024 17:16-0500 Heart rate 62 /min Dr. Marci Nuñez DO Work Phone: [facility] 11-18-2024 17:16-0500 Respiratory rate 18 /min Dr. Marci Nuñez DO Work Phone: [facility] 11-18-2024 17:16-0500 SaO2% (BldA) [Mass fraction] 97 % Dr. Marci Nuñez DO Work Phone: [facility] 11-18-2024 14:20-0500 Diastolic blood pressure 74 mm[Hg] Dr. Marci Nuñez DO Work Phone: [facility] 11-18-2024 14:20-0500 Systolic blood pressure 122 mm[Hg] Dr. Marci Nuñez DO Work Phone: [facility] 08-01-2024 15:26-0400 Body weight 59.[address] Marci Nuñez DO Work Phone: [facility] 05-17-2024 14:39-0400 Body height 172.7 cm Ghazala Mccord MD Work Phone: [facility] 05-17-2024 14:39-0400 Body mass index (BMI) [Ratio] 19.52 kg/m2 Ghazala Mccord MD Work Phone: [facility] 05-17-2024 14:39-0400 Body weight 58.24 kg Ghazala Mccord MD Work Phone: [facility] 05-17-2024 14:39-0400 Diastolic blood pressure 58 mm[Hg] Ghazala Mccord MD Work Phone: [facility] 05-17-2024 14:39-0400 Heart rate 72 /min Ghazala Mccord MD Work Phone: [facility] 05-17-2024 14:39-0400 SaO2% (BldA) [Mass fraction] 97 % Ghazala Mccord MD Work Phone: [facility] 05-17-2024 14:39-0400 Systolic blood pressure 95 mm[Hg] Ghazala Mccord MD Work Phone: [facility] 03-15-2024 09:18-0400 Heart rate 62 /min Dr. Adrienne Byers Work Phone: [facility] 03-15-2024 09:12-0400 Body temperature 97.7 [degF] Dr. Adrienne Byers Work Phone: [facility] 03-15-2024 09:12-0400 Diastolic blood pressure 50 mm[Hg] Dr. Adrienne Byers Work Phone: [facility] 03-15-2024 09:12-0400 Respiratory rate 16 /min Dr. Adrienne Byers Work Phone: [facility] 03-15-2024 09:12-0400 SaO2% (BldA) [Mass fraction] 96 % Dr. Adrienne Byers Work Phone: [facility] 03-15-2024 09:12-0400 Systolic blood pressure 122 mm[Hg] Dr. Adrienne Byers Work Phone: [facility] 03-14-2024 14:00-0400 Body mass index (BMI) [Ratio] 19.8 kg/m2 Dr. Adrienne Byers Work Phone: [facility] 03-14-2024 14:00-0400 Body weight 59.[address] Adrienne Byers Work Phone: [facility] 03-08-2024 12:02-0400 Body height 172.[address] Adrienne Byers Work Phone: [facility] 02-29-2024 09:30-0400 Body temperature 98.5 [degF] Dr. Adrienne Byers Work Phone: [facility] 02-29-2024 09:30-0400 Diastolic blood pressure 63 mm[Hg] Dr. Adrienne Byers Work Phone: [facility] 02-29-2024 09:30-0400 Heart rate 73 /min Dr. Adrienne Byers Work Phone: [facility] 02-29-2024 09:30-0400 Respiratory rate 16 /min Dr. Adrienne Byers Work Phone: [facility] 02-29-2024 09:30-0400 SaO2% (BldA) [Mass fraction] 95 % Dr. Adrienne Byers Work Phone: [facility] 02-29-2024 09:30-0400 Systolic blood pressure 118 mm[Hg] Dr. Adrienne Byers Work Phone: [facility] 02-26-2024 22:00-0400 Inhaled oxygen flow rate 2 L/min Dr. Adrienne Byers Work Phone: [facility] 02-25-2024 13:30-0400 Body height 172.[address] Adrienne Byers Work Phone: [facility] 02-25-2024 13:30-0400 Body weight 58.[address] Adrienne Byers Work Phone: [facility] 02-22-2024 11:00-0400 Body mass index (BMI) [Ratio] 19.5 kg/m2 Dr. Adrienne Byers Work Phone: [facility] 02-21-2024 19:53-0400 Body temperature 98.2 [degF] Dr. Adrienne Byers Work Phone: [facility] 02-21-2024 19:53-0400 Diastolic blood pressure 45 mm[Hg] Dr. Adrienne Byers Work Phone: [facility] 02-21-2024 19:53-0400 Heart rate 66 /min Dr. Adrienne Byers Work Phone: [facility] 02-21-2024 19:53-0400 Respiratory rate 20 /min Dr. Adrienne Byers Work Phone: [facility] 02-21-2024 19:53-0400 SaO2% (BldA) [Mass fraction] 97 % Dr. Adrienne Byers Work Phone: [facility] 02-21-2024 19:53-0400 Systolic blood pressure 105 mm[Hg] Dr. Adrienne Byers Work Phone: [facility] 02-21-2024 15:33-0400 Body mass index (BMI) [Ratio] 20.2 kg/m2 Dr. Adrienne Byers Work Phone: [facility] 02-21-2024 15:33-0400 Body weight 60.[address] Adrienne Byers Work Phone: [facility] 02-21-2024 15:32-0400 Body height 172.[address] Adrienne Byers Work Phone: [facility] 02-19-2024 18:33-0400 Body temperature 98.3 [degF] [facility] 02-19-2024 18:33-0400 Diastolic blood pressure 74 mm[Hg] [facility] 02-19-2024 18:33-0400 Heart rate 76 /min [facility] 02-19-2024 18:33-0400 Respiratory rate 16 /min [facility] 02-19-2024 18:33-0400 SaO2% (BldA) [Mass fraction] 96 % [facility] 02-19-2024 18:33-0400 Systolic blood pressure 127 mm[Hg] [facility] 02-19-2024 15:07-0400 Body height 172.72 cm [facility] 02-19-2024 15:07-0400 Body mass index (BMI) [Ratio] 19.8 kg/m2 [facility] 02-19-2024 15:07-0400 Body weight 59.23 kg [facility] 12-08-2023 18:27-0500 Diastolic blood pressure 66 mm[Hg] Dr. Adrienne Byers Work Phone: [facility] 12-08-2023 18:27-0500 Heart rate 77 /min Dr. Adrienne Byers Work Phone: [facility] 12-08-2023 18:27-0500 Respiratory rate 16 /min Dr. Adrienne Byers Work Phone: [facility] 12-08-2023 18:27-0500 SaO2% (BldA) [Mass fraction] 99 % Dr. Adrienne Byers Work Phone: [facility] 12-08-2023 18:27-0500 Systolic blood pressure 118 mm[Hg] Dr. Adrienne Byers Work Phone: [facility] 12-08-2023 15:46-0500 Body mass index (BMI) [Ratio] 20.7 kg/m2 Dr. Adrienne Byers Work Phone: [facility] 12-08-2023 15:46-0500 Body weight 61.[address] Adrienne Byers Work Phone: [facility] 12-08-2023 13:03-0500 Body height 172.[address] Adrienne Byers Work Phone: [facility] 12-08-2023 13:03-0500 Body temperature 96.7 [degF] Dr. Adrienne Byers Work Phone: [facility] 10-12-2023 13:31-0500 Body mass index (BMI) [Ratio] 21.1 kg/m2 Dr. Adrienne Byers Work Phone: [facility] 10-12-2023 08:40-0500 Body temperature 97.8 [degF] Dr. Adrienne Byers Work Phone: [facility] 10-12-2023 08:40-0500 Diastolic blood pressure 67 mm[Hg] Dr. Adrienne Byers Work Phone: [facility] 10-12-2023 08:40-0500 Heart rate 60 /min Dr. Adrienne Byers Work Phone: [facility] 10-12-2023 08:40-0500 Respiratory rate 14 /min Dr. Adrienne Byers Work Phone: [facility] 10-12-2023 08:40-0500 SaO2% (BldA) [Mass fraction] 100 % Dr. Adrienne Byers Work Phone: [facility] 10-12-2023 08:40-0500 Systolic blood pressure 143 mm[Hg] Dr. Adrienne Byers Work Phone: [facility] 10-12-2023 06:00-0500 Body weight 63.[address] Adrienne Byers Work Phone: [facility] 10-07-2023 15:14-0500 Body height 172.[address] Adrienne Byers Work Phone: [facility] 10-07-2023 15:04-0500 Diastolic blood pressure 93 mm[Hg] Dr. Adrienne Byers Work Phone: [facility] 10-07-2023 15:04-0500 Heart rate 61 /min Dr. Adrienne Byers Work Phone: [facility] 10-07-2023 15:04-0500 Respiratory rate 18 /min Dr. Adrienne Byers Work Phone: [facility] 10-07-2023 15:04-0500 SaO2% (BldA) [Mass fraction] 97 % Dr. Adrienne Byers Work Phone: [facility] 10-07-2023 15:04-0500 Systolic blood pressure 107 mm[Hg] Dr. Adrienne Byers Work Phone: [facility] 10-07-2023 13:04-0500 Body height 172.[address] Adrienne Byers Work Phone: [facility] 10-07-2023 13:04-0500 Body mass index (BMI) [Ratio] 21.2 kg/m2 Dr. Adrienne Byers Work Phone: [facility] 10-07-2023 13:04-0500 Body weight 63.[address] Adrienne Byers Work Phone: [facility] 10-07-2023 12:35-0500 Body temperature 97.8 [degF] Dr. Adrienne Byers Work Phone: [facility] 10-07-2023 09:42-0500 Diastolic blood pressure 47 mm[Hg] Dr. Adrienne Byers Work Phone: [facility] 10-07-2023 09:42-0500 Heart rate 75 /min Dr. Adrienne Byers Work Phone: [facility] 10-07-2023 09:42-0500 Systolic blood pressure 103 mm[Hg] Dr. Adrienne Byers Work Phone: [facility] 10-06-2023 16:00-0500 Body temperature 97.7 [degF] Dr. Adrienne Byers Work Phone: [facility] 10-06-2023 16:00-0500 Respiratory rate 14 /min Dr. Adrienne Byers Work Phone: [facility] 10-06-2023 16:00-0500 SaO2% (BldA) [Mass fraction] 97 % Dr. Adrienne Byers Work Phone: [facility] 10-06-2023 15:02-0500 Body weight 61.[address] Adrienne Byers Work Phone: [facility] 10-05-2023 11:08-0500 Body mass index (BMI) [Ratio] 20.5 kg/m2 Dr. Adrienne Byers Work Phone: [facility] 10-01-2023 14:27-0500 Body mass index (BMI) [Ratio] 20.8 kg/m2 Dr. Adrienne Byers Work Phone: [facility] 10-01-2023 13:40-0500 Body temperature 98.1 [degF] Dr. Adrienne Byers Work Phone: [facility] 10-01-2023 13:40-0500 Diastolic blood pressure 68 mm[Hg] Dr. Adrienne Byers Work Phone: [facility] 10-01-2023 13:40-0500 Heart rate 65 /min Dr. Adrienne Byers Work Phone: [facility] 10-01-2023 13:40-0500 Respiratory rate 18 /min Dr. Adrienne Byers Work Phone: [facility] 10-01-2023 13:40-0500 SaO2% (BldA) [Mass fraction] 97 % Dr. Adrienne Byers Work Phone: [facility] 10-01-2023 13:40-0500 Systolic blood pressure 138 mm[Hg] Dr. Adrienne Byers Work Phone: [facility] 09-29-2023 14:06-0500 Body height 170.[address] Adrienne Byers Work Phone: [facility] 09-29-2023 14:06-0500 Body weight 60.[address] Adrienne Byers Work Phone: [facility] 09-28-2023 22:00-0500 Diastolic blood pressure 77 mm[Hg] [facility] 09-28-2023 22:00-0500 Heart rate 63 /min [facility] 09-28-2023 22:00-0500 Respiratory rate 18 /min [facility] 09-28-2023 22:00-0500 SaO2% (BldA) [Mass fraction] 99 % [facility] 09-28-2023 22:00-0500 Systolic blood pressure 152 mm[Hg] [facility] 09-28-2023 20:41-0500 Body height 170.18 cm [facility] 09-28-2023 20:41-0500 Body mass index (BMI) [Ratio] 21.4 kg/m2 [facility] 09-28-2023 20:41-0500 Body weight 61.9 kg [facility] 09-28-2023 20:00-0500 Body temperature 98.1 [degF] [facility] 08-18-2023 12:08-0400 Body temperature 98.6 [degF] JAXON KUHN MD [facility] 08-18-2023 12:08-0400 Diastolic Blood Pressure Non-Invasive 63 1 JAXON KUHN MD [facility] 08-18-2023 12:08-0400 Heart rate 73 /min JAXON KUHN MD [facility] 08-18-2023 12:08-0400 Respiratory rate 16 /min JAXON KUHN MD [facility] 08-18-2023 12:08-0400 Systolic Blood Pressure Non-Invasive 94 1 JAXON KUHN MD [facility] 08-11-2023 06:42-0400 Body temperature 98.24 [degF] JAXON KUHN MD [facility] 08-11-2023 06:42-0400 Diastolic Blood Pressure Non-Invasive 61 1 JAXON KUHN MD [facility] 08-11-2023 06:42-0400 Heart rate 61 /min JAXON KUHN MD [facility] 08-11-2023 06:42-0400 Respiratory rate 18 /min JAXON KUHN MD [facility] 08-11-2023 06:42-0400 Systolic Blood Pressure Non-Invasive 106 1 JAXON KUHN MD [facility] 08-04-2023 12:09-0400 Body height 172.7 cm JAXON KUHN MD [facility] 08-04-2023 12:09-0400 Body temperature 98.6 [degF] JAXON KUHN MD [facility] 08-04-2023 12:09-0400 Body weight 63 kg JAXON KUHN MD [facility] 08-04-2023 12:09-0400 Diastolic Blood Pressure Non-Invasive 60 1 JAXON KUHN MD [facility] 08-04-2023 12:09-0400 Heart rate 60 /min JAXON KUHN MD [facility] 08-04-2023 12:09-0400 Respiratory rate 18 /min JAXON KUHN MD [facility] 08-04-2023 12:09-0400 Systolic Blood Pressure Non-Invasive 104 1 JAXON KUHN MD [facility] 05-12-2023 13:28-0400 Body height 172.7 cm Ghazala Mccord MD Work Phone: [facility] 05-12-2023 13:28-0400 Body weight 62.14 kg Ghazala Mccord MD Work Phone: [facility] 05-12-2023 13:28-0400 Diastolic blood pressure 57 mm[Hg] hGazala Mccord MD Work Phone: [facility] 05-12-2023 13:28-0400 Heart rate 73 /min Ghazala Mccord MD Work Phone: [facility] 05-12-2023 13:28-0400 Respiratory rate 20 /min Ghazala Mccord MD Work Phone: [facility] 05-12-2023 13:28-0400 SaO2% (BldA) [Mass fraction] 97 % Ghazala Mccord MD Work Phone: [facility] 05-12-2023 13:28-0400 Systolic blood pressure 102 mm[Hg] Ghazala Mccord MD Work Phone: [facility] 08-20-2022 00:26-0400 Diastolic blood pressure 33 mm[Hg] DR AKIN SALGUERO DO [place] 08-20-2022 00:26-0400 Heart rate 60 /min DR AKIN SALGUERO DO [place] 08-20-2022 00:26-0400 Respiratory rate 16 /min DR GERARDO MARLONER DO [facility] 08-20-2022 00:26-0400 Systolic blood pressure 102 mm[Hg] DR AKIN SALGUERO DO [place] 08-20-2022 00:09-0400 Diastolic blood pressure 33 mm[Hg] DR AKIN SALGUERO DO [facility] 08-20-2022 00:09-0400 Heart rate 60 /min DR AKIN SALGUERO DO [place] 08-20-2022 00:09-0400 Reason For Taking VItal Signs DR AKIN SALGUERO DO [facility] 08-20-2022 00:09-0400 Respiratory rate 16 /min DR AKIN SALGUERO DO [place] 08-20-2022 00:09-0400 Systolic blood pressure 102 mm[Hg] DR AKIN SALGUERO DO [facility] 08-19-2022 23:40-0400 Diastolic blood pressure 70 mm[Hg] DR AKIN SALGUERO DO [facility] 08-19-2022 23:40-0400 Heart rate 60 /min DR AKIN SALGUERO DO [facility] 08-19-2022 23:40-0400 Mean blood pressure 79 mm[Hg] DR AKIN SALGUERO DO [facility] 08-19-2022 23:40-0400 Respiratory rate 12 /min DR AKIN SALGUERO DO [facility] 08-19-2022 23:40-0400 Systolic blood pressure 96 mm[Hg] DR AKIN SALGUERO DO [place] 08-19-2022 15:07-0400 Body temperature 98.78 [degF] DR AKIN SALGUERO DO [facility] 06-23-2022 15:16-0400 Body height 172.7 cm Sherif Ramirez MD Work Phone: [facility] 06-23-2022 15:16-0400 Body weight 65.32 kg Sherif Ramirez MD Work Phone: [facility] 06-23-2022 15:16-0400 Diastolic blood pressure 64 mm[Hg] Sherif Ramirez MD Work Phone: [facility] 06-23-2022 15:16-0400 Heart rate 75 /min Sherif Ramirez MD Work Phone: [facility] 06-23-2022 15:16-0400 SaO2% (BldA) [Mass fraction] 97 % Sherif Ramirez MD Work Phone: [facility] 06-23-2022 15:16-0400 Systolic blood pressure 116 mm[Hg] Sherif Ramirez MD Work Phone: [facility] 06-04-2022 13:42-0400 Diastolic blood pressure 67 mm[Hg] Ghazala Mccord MD Work Phone: [facility] 06-04-2022 13:42-0400 Heart rate 77 /min Ghazala Mccord MD Work Phone: [facility] 06-04-2022 13:42-0400 SaO2% (BldA) [Mass fraction] 98 % Ghazala Mccord MD Work Phone: [facility] 06-04-2022 13:42-0400 Systolic blood pressure 115 mm[Hg] Ghazala Mccord MD Work Phone: [facility] 05-22-2022 15:55-0400 Diastolic blood pressure 60 mm[Hg] NOREEN HICKS MD [facility] 05-22-2022 15:55-0400 Heart rate 60 /min NOREEN HICKS MD [place] 05-22-2022 15:55-0400 Respiratory rate 16 /min NOREEN HICKS MD [place] 05-22-2022 15:55-0400 Systolic blood pressure 130 mm[Hg] NOREEN HICKS MD [address] [place] [address] 05-22-2022 15:45-0400 Diastolic blood pressure 60 mm[Hg] NOREEN HICKS MD [address] 05-22-2022 15:45-0400 Heart rate 60 /min NOREEN HICKS MD [address] [place] [address] 05-22-2022 15:45-0400 Respiratory rate 11 /min NOREEN HICKS MD [address] [place] [address] 05-22-2022 15:45-0400 Systolic blood pressure 130 mm[Hg] NOREEN HICKS MD [address] 05-22-2022 15:30-0400 Diastolic blood pressure 50 mm[Hg] NOREEN HICKS MD [address] [place] [address] 05-22-2022 15:30-0400 Heart rate 60 /min NOREEN HICKS MD [address] [place] [address] 05-22-2022 15:30-0400 Respiratory rate 12 /min NOREEN HICKS MD [address] [place] [address] 05-22-2022 15:30-0400 Systolic blood pressure 135 mm[Hg] NOREEN HICKS MD [address] [place] [address] 05-22-2022 12:54-0400 Body weight 72.4 kg NOREEN HICKS MD [address] [place] [address] 05-22-2022 12:46-0400 Body temperature 100.22 [degF] NOREEN HICKS MD [address] [place] [address] 05-22-2022 12:46-0400 Heart rate 89 /min NOREEN HICKS MD [facility] 04-25-2022 23:34-0400 Body temperature 98.24 [degF] [facility] 04-25-2022 23:34-0400 Diastolic blood pressure 66 mm[Hg] [facility] 04-25-2022 23:34-0400 Heart rate 71 /min [facility] 04-25-2022 23:34-0400 Systolic blood pressure 122 mm[Hg] [facility] 04-03-2022 15:58-0400 diastolic 56 mm[Hg] DR JAC CHRISTENSEN MD [place] 04-03-2022 15:58-0400 Heart rate 53 /min DR JAC CHRISTENSEN MD [facility] 04-03-2022 15:58-0400 systolic 98 mm[Hg] DR JAC CHRISTENSEN MD [facility] 04-03-2022 14:50-0400 Body temperature 98.06 [degF] DR JAC CHRISTENSEN MD [facility] 04-03-2022 14:50-0400 diastolic 60 mm[Hg] DR JAC CHRISTENSEN MD [place] 04-03-2022 14:50-0400 Heart rate 62 /min DR JAC CHRISTENSEN MD [address] [place] [address] 04-03-2022 14:50-0400 Respiratory rate 18 /min DR JAC CHRISTENSEN MD [address] 04-03-2022 14:50-0400 systolic 105 mm[Hg] DR JAC CHRISTENSEN MD [address] [place] [address] 04-02-2022 16:13-0400 Diastolic blood pressure 56 mm[Hg] DR JAC CHRISTENSEN MD [address] [place] [address] 04-02-2022 16:13-0400 Heart rate 60 /min DR JAC CHRISTENSEN MD [address] [place] [address] 04-02-2022 16:13-0400 Mean blood pressure 72 mm[Hg] DR JAC CHRISTENSEN MD [address] [place] [address] 04-02-2022 16:13-0400 Respiratory rate 18 /min DR JAC CHRISTENSEN MD [address] [place] [address] 04-02-2022 16:13-0400 Systolic blood pressure 103 mm[Hg] DR JAC CHRISTENSEN MD [address] [place] [address] 04-02-2022 14:54-0400 diastolic 51 mm[Hg] DR JAC CHRISTENSEN MD [address] [place] [address] 04-02-2022 14:54-0400 Heart rate 67 /min DR JAC CHRISTENSEN MD [address] [place] [address] 04-02-2022 14:54-0400 Respiratory rate 18 /min DR JAC CHRISTENSEN MD [address] [place] [address] 04-02-2022 14:54-0400 systolic 101 mm[Hg] DR JAC CHRISTENSEN MD [place] 12-25-2021 16:07-0500 Body temperature 97.52 [degF] MITCHELL MARY MD [address] [place] [address] 12-25-2021 16:07-0500 Diastolic Blood Pressure NBP 46 1 MITCHELL MARY MD [address] [place] [address] 12-25-2021 16:07-0500 Heart rate 70 /min MITCHELL MARY MD [address] [place] [address] 12-25-2021 16:07-0500 Mean blood pressure 58 mm[Hg] MITCHELL MARY MD [address] [place] [address] 12-25-2021 16:07-0500 Reason For Taking VItal Signs MITCHELL MARY MD [facility] 12-25-2021 16:07-0500 Respiratory rate 16 /min MITCHELL MARY MD [facility] 12-25-2021 16:07-0500 Systolic Blood Pressure NBP 94 1 MITCHELL MARY MD [facility] 12-25-2021 11:52-0500 Heart rate 75 /min MITCHELL MARY MD [address] [place] [address] 12-25-2021 11:52-0500 Reason For Taking VItal Signs MITCHELL MARY MD [facility] 12-25-2021 11:43-0500 Heart rate 67 /min MITCHELL MARY MD [facility] 12-25-2021 11:43-0500 Reason For Taking VItal Signs MITCHELL MARY MD [address] [place] [address] 12-25-2021 10:58-0500 Body temperature 98.06 [degF] MITCHELL MARY MD [address] [place] [address] 12-25-2021 10:58-0500 Diastolic Blood Pressure NBP 52 1 MITCHELL MARY MD [address] [place] [address] 12-25-2021 10:58-0500 Systolic Blood Pressure NBP 115 1 MITCHELL MARY MD [address] [place] [address] 12-25-2021 08:44-0500 Heart rate 74 /min MITCHELL MARY MD [place] 12-25-2021 06:53-0500 Body temperature 98.24 [degF] MITCHELL MARY MD [facility] 12-25-2021 06:53-0500 Diastolic Blood Pressure NBP 47 1 MITCHELL MARY MD [place] 12-25-2021 06:53-0500 Systolic Blood Pressure NBP 118 1 MITCHELL MARY MD [place] 12-24-2021 23:39-0500 Mean blood pressure 67 mm[Hg] MITCHELL MARY MD [facility] 12-24-2021 23:10-0500 Body temperature 96.8 [degF] MITCHELL MARY MD [facility] 12-24-2021 19:33-0500 Respiratory rate 20 /min MITCHELL MARY MD [address] [place] [address] 12-24-2021 18:43-0500 Diastolic blood pressure 54 mm[Hg] MITCHELL MARY MD [address] [place] [address] 12-24-2021 18:43-0500 Respiratory rate 20 /min MITCHELL MARY MD [place] 12-24-2021 18:43-0500 Systolic blood pressure 110 mm[Hg] MITCHELL MARY MD [facility] 12-24-2021 14:39-0500 Diastolic blood pressure 58 mm[Hg] MITCHELL MARY MD [facility] 12-24-2021 14:39-0500 Systolic blood pressure 112 mm[Hg] MITCHELL MARY MD [facility] 12-24-2021 10:50-0500 Diastolic blood pressure 62 mm[Hg] MITCHELL MARY MD [facility] 12-24-2021 10:50-0500 Systolic blood pressure 128 mm[Hg] MITCHELL MARY MD [address] [place] [address] 12-24-2021 08:09-0500 Heart rate 76 /min MITCHELL MARY MD [place] 12-24-2021 06:38-0500 Body temperature 97.52 [degF] MITCHELL MARY MD [facility] 12-24-2021 04:49-0500 Body temperature 97.34 [degF] MITHCELL MARY MD [facility] 12-24-2021 04:49-0500 Mean blood pressure 92 mm[Hg] MITCHELL MARY MD [facility] 12-24-2021 02:11-0500 Body height 172.7 cm MITCHELL MARY MD [facility] 12-24-2021 02:11-0500 Body weight 71.4 kg MITCHELL MARY MD [place] 12-24-2021 02:11-0500 Body weight 23.94 kg/m2 MITCHELL MARY MD [place] 12-24-2021 02:10-0500 Body weight 71.4 kg MITCHELL MARY MD [place] 12-24-2021 01:58-0500 Mean blood pressure 116 mm[Hg] MITCHELL MARY MD [place] 12-23-2021 23:33-0500 Diastolic blood pressure 65 mm[Hg] CATHY MARQUEZ DO [facility] 12-23-2021 23:33-0500 Heart rate 73 /min CATHY FROMMELT DO [facility] 12-23-2021 23:33-0500 Respiratory rate 24 /min CATHY FROMMELT DO [facility] 12-23-2021 23:33-0500 Systolic blood pressure 129 mm[Hg] CATHY FROMMELT DO [facility] 12-23-2021 23:00-0500 Diastolic blood pressure 96 mm[Hg] CATHY FROMMELT DO [facility] 12-23-2021 23:00-0500 Heart rate 75 /min CATHY FROMMELT DO [facility] 12-23-2021 23:00-0500 Respiratory rate 17 /min CATHY FROMMELT DO [facility] 12-23-2021 23:00-0500 Systolic blood pressure 136 mm[Hg] CATHY FROMMELT DO [facility] 12-23-2021 22:36-0500 Diastolic blood pressure 71 mm[Hg] CATHY FROMMELT DO [facility] 12-23-2021 22:36-0500 Heart rate 76 /min CATHY FROMMELT DO [facility] 12-23-2021 22:36-0500 Respiratory rate 24 /min CATHY FROMMELT DO [facility] 12-23-2021 22:36-0500 Systolic blood pressure 137 mm[Hg] CTAHY MARQUEZ DO [facility] 12-23-2021 19:16-0500 Body temperature 98.06 [degF] CTAHY MARQUEZ DO [facility] 12-23-2021 19:16-0500 Heart rate 77 /min CATHY MARQUEZ DO [facility] 12-05-2021 11:12-0500 Heart rate 66 /min MARTHA PILLAI MD [place] 12-05-2021 10:59-0500 Body temperature 97.88 [degF] MARTHA PILLIA MD [place] 12-05-2021 10:59-0500 Diastolic blood pressure 52 mm[Hg] MARTHA PILLAI MD [place] 12-05-2021 10:59-0500 Heart rate 66 /min MARTHA PILLAI MD [place] 12-05-2021 10:59-0500 Mean blood pressure 67 mm[Hg] MARTHA PILLAI MD [place] 12-05-2021 10:59-0500 Systolic blood pressure 98 mm[Hg] MARTHA PILLAI MD [place] 12-05-2021 08:51-0500 Heart rate 68 /min MARTHA PILLAI MD [place] 12-05-2021 08:07-0500 Body temperature 97.34 [degF] MARTHA PILLAI MD [place] 12-05-2021 08:07-0500 Diastolic blood pressure 56 mm[Hg] MARTHA PILLAI MD [place] 12-05-2021 08:07-0500 Heart rate 63 /min MARTHA PILLAI MD [place] 12-05-2021 08:07-0500 Mean blood pressure 70 mm[Hg] MARTHA PILLAI MD [place] 12-05-2021 08:07-0500 Reason For Taking VItal Signs MARTHA PILLAI MD [place] 12-05-2021 08:07-0500 Respiratory rate 18 /min MARTHA PILLAI MD [place] 12-05-2021 08:07-0500 Systolic blood pressure 98 mm[Hg] MARTHA PILLAI MD [place] 12-05-2021 04:00-0500 Diastolic blood pressure 60 mm[Hg] MATRHA PILLAI MD [place] 12-05-2021 04:00-0500 Mean blood pressure 71 mm[Hg] MARTHA PILLAI MD [place] 12-05-2021 04:00-0500 Reason For Taking VItal Signs MARTHA PILLAI MD [place] 12-05-2021 04:00-0500 Systolic blood pressure 94 mm[Hg] MARTHA PILLAI MD [place] 12-04-2021 21:57-0500 Body temperature 98.24 [degF] MARTHA PILLAI MD [place] 12-04-2021 21:57-0500 Reason For Taking VItal Signs MARTHA PILLAI MD [place] 12-04-2021 21:57-0500 Respiratory rate 18 /min MARTHA PILLAI MD [place] 12-04-2021 17:12-0500 Diastolic Blood Pressure NBP 44 1 MARTHA PILLAI MD [place] 12-04-2021 17:12-0500 Mean blood pressure 60 mm[Hg] MARTHA PILLAI MD [place] 12-04-2021 17:12-0500 Systolic Blood Pressure NBP 95 1 MARTHA PILLAI MD [place] 12-04-2021 16:08-0500 Diastolic Blood Pressure NBP 47 1 MARTHA PILLAI MD [place] 12-04-2021 16:08-0500 Systolic Blood Pressure NBP 100 1 MARTHA PILLAI MD [place] 12-04-2021 02:01-0500 Diastolic Blood Pressure NBP 50 1 MARTHA PILLAI MD [place] 12-04-2021 02:01-0500 Mean blood pressure 64 mm[Hg] MARTHA PILLAI MD [place] 12-04-2021 02:01-0500 Systolic Blood Pressure NBP 96 1 MARTHA PILLAI MD [place] 12-03-2021 19:51-0500 Mean blood pressure 62 mm[Hg] MARTHA PILLAI MD [place] 12-03-2021 10:50-0500 Heart rate 67 /min MARTHA PILLIA MD [place] 12-01-2021 13:15-0500 SaO2% (BldA) [Mass fraction] 93.7 % MARTHA PILLAI MD [facility] 11-29-2021 23:28-0500 Body temperature 97.7 [degF] MARTHA PILLAI MD [place] 11-29-2021 11:04-0500 diastolic 40 mm[Hg] MARTHA PILLAI MD [place] 11-29-2021 11:04-0500 systolic 82 mm[Hg] MARTHA PILLAI MD [place] 11-29-2021 11:04-0500 systolic 80 mm[Hg] MARTHA PILLAI MD [place] 11-26-2021 07:40-0500 SaO2% (BldA) [Mass fraction] 95.0 % MARTHA PILLAI MD [facility] 11-25-2021 04:06-0500 SaO2% (BldA) [Mass fraction] 95.9 % MARTHA PILLAI MD [facility] 11-22-2021 04:04-0500 Body height 162 cm MARTHA PILLAI MD [place] 11-22-2021 04:04-0500 Body weight 76.8 kg MARTHA PILLAI MD [place] 11-22-2021 04:04-0500 Body weight 29.26 kg/m2 MARTHA PILLAI MD [place] 11-22-2021 02:05-0500 Diastolic blood pressure 55 mm[Hg] JAXON KUHN MD [facility] 11-22-2021 02:05-0500 Heart rate 74 /min JAXON KUHN MD [facility] 11-22-2021 02:05-0500 Respiratory rate 12 /min JAXON KUHN MD [facility] 11-22-2021 02:05-0500 Systolic blood pressure 88 mm[Hg] JAXON KUHN MD [facility] 11-22-2021 01:34-0500 Diastolic blood pressure 49 mm[Hg] JAXON KUHN MD [facility] 11-22-2021 01:34-0500 Systolic blood pressure 93 mm[Hg] JAXON KUHN MD [facility] 11-22-2021 01:30-0500 Heart rate 88 /min JAXON KUHN MD [facility] 11-22-2021 01:30-0500 Respiratory rate 16 /min JAXON KUHN MD [facility] 11-22-2021 01:15-0500 Diastolic blood pressure 58 mm[Hg] JAXON KUHN MD [facility] 11-22-2021 01:15-0500 Heart rate 101 /min JAXON KUHN MD [facility] 11-22-2021 01:15-0500 Respiratory rate 15 /min JAXON KUHN MD [facility] 11-22-2021 01:15-0500 Systolic blood pressure 100 mm[Hg] JAXON KUHN MD [facility] 11-22-2021 00:29-0500 SaO2% (BldA) [Mass fraction] 100 % JAXON KUHN MD [facility] 11-21-2021 21:58-0500 Body temperature 98.42 [degF] JAXON KUHN MD [facility] 11-21-2021 21:58-0500 Heart rate 130 /min JAXON KUHN MD [facility] Encounters Encounter Date Encounter Type Care Provider Facility Start: 07-04-2025 ambulatory Marci Nuñez Facility:[facility] Start: 06-29-2025 End: 06-29-2025 ambulatory JESUS MANUEL MARTINEZ Facility:[facility] Start: 06-19-2025 End: 06-19-2025 ambulatory Wesley Fisher [facility] Work Phone: [facility] Specialty Pharmacy Comment on above: SPP Neurology - Disc ontinuation Of Therapy ( Austedo XR) Start: 06-16-2025 End: 06-16-2025 [facility] Start: 06-16-2025 End: 06-16-2025 Patient encounter procedure Dannie Barros RN [facility] Start: 06-11-2025 Dr. Ganesh Bradley and MD [facility] Work Phone: Start: 06-10-2025 Dr. Ganesh Bradley and MD [facility] Work Phone: Start: 06-09-2025 End: 06-09-2025 Telephone encounter Marci Nuñez Work Phone: [facility] Clinical Communication Comment on above: Other (Update on pat ie care ) Start: 06-09-2025 Dr. Ganesh Bradley and MD [facility] Work Phone: Start: 06-08-2025 Dr. Ganesh Bradley and MD [facility] Work Phone: Start: 06-07-2025 Dr. Ganesh Bradley and MD [facility] Work Phone: Start: 06-06-2025 Dr. Gaensh Bradley and MD [facility] Work Phone: Start: 06-05-2025 Dr. Ben kowalski DO [facility] Work Phone: Start: 06-04-2025 Dr. Ben kowalski DO [facility] Work Phone: Start: 06-03-2025 Dr. [facility] Work Phone: Start: 06-02-2025 [facility] Work [facility]: Start: 06-02-2025 End: 06-02-2025 Patient encounter procedure [facility] Start: 06-02-2025 End: 06-02-2025 Telephone encounter Marci Nuñez Work Phone: [facility] Clinical Communication Comment on above: Care Coordination (P age ) Start: 06-02-2025 End: 06-02-2025 ambulatory Donna Vail RN [facility] Clinical Communication Start: 06-02-2025 End: 06-11-2025 Evaluation and management of inpatient Dr. Marci Nuñez DO Work Phone: -Medical Surgical 3 Start: 06-02-2025 End: 06-11-2025 Dr. Ben Johnson DO -Medical Surgical 3 Work Phone: Start: 06-01-2025 End: 06-01-2025 Subsequent hospital visit by physician Marci Nuñez Work Phone: [facility] Radiology Comment on above: Chronic systolic (co ngestive) heart failure (HCC) Start: 06-01-2025 End: 06-01-2025 ambulatory [facility] Start: 05-30-2025 End: 05-30-2025 Patient encounter procedure Rosa ROWLEY [facility] Work Phone: Start: 05-30-2025 End: 05-30-2025 Rosa ROWLEY [facility] Work Phone: Start: 05-30-2025 End: 05-30-[address] Marci Nuñez DO Work Phone: -[facility] Start: 05-29-2025 End: 05-29-2025 Patient encounter procedure Kaykay ROWLEY -[facility] Work Phone: Start: 05-29-2025 End: 05-29-2025 Kaykay Pena [facility] Work Phone: Start: 05-29-2025 End: 05-29-[address] Marci Nuñez DO Work Phone: -[facility] Start: 05-22-2025 End: 05-22-2025 Dr. Marci Nuñez DO Work Phone: -Emergency Department Work Phone: Start: 05-22-2025 End: 05-22-2025 Emergency department patient visit Dr. Marci Nuñez DO Work Phone: -Emergency Department Start: 05-21-2025 End: 05-21-2025 Specialty Pharmacy Wesley Fisher [facility] Work Phone: [facility] Specialty Pharmacy Comment on above: SPP Neurology - Medi cation Refill (Austedo XR) Start: 05-03-2025 End: 05-03-[address] Marci Nuñez DO Work Phone: [facility] Work Phone: Start: 05-03-2025 End: 05-03-[address] [facility] Start: 05-03-2025 End: 05-03-2025 Dr. Danish Tavarez MD [facility] Work Phone: Start: 04-25-2025 Non-patient / Non-visit Shan Rivero nd DO -[facility] Start: 04-25-2025 End: 04-25-2025 Admission to same day surgery center Shan Lockett DO -Endoscopy Work Phone: Start: 04-25-2025 End: 04-25-2025 Shan Lockett DO -Endoscopy Work Phone: Start: 04-25-2025 End: 04-25-[address] Marci Nuñez DO Work Phone: [facility] Work Phone: Start: 04-23-2025 End: 04-23-2025 Specialty Pharmacy Wesley Fisher [facility] Work Phone: [facility] Specialty Pharmacy Comment on above: SPP Neurology - Medi cation Refill (Autedo ) Start: 04-20-2025 End: 05-03-2025 Evaluation and management of inpatient Dr. Alonso Marte MD -Transitional Care Unit Start: 04-20-2025 End: 05-03-2025 Dr. Alonso Marte MD -Transitional Care U nit Start: 04-20-2025 Non-patient / Non-visit Dr. Matthew FOWLER -[facility] Work Phone: Start: 04-20-2025 Dr. Maximo Orosco DO [facility] Work Phone: Start: 04-19-2025 End: 04-20-2025 ambulatory Marci Nuñez Facility:[facility] Start: 04-19-2025 End: 04-20-2025 Evaluation and management of inpatient Dr. Maximo Orosco DO -Medical Surgical 3 Work Phone: Start: 04-19-2025 End: 04-20-[address] Marci Nuñez DO Work Phone: [facility] Work Phone: Start: 04-19-2025 End: 04-20-2025 Dr. Maximo Orosco DO -Medical Surgical 3 Work Phone: Start: 04-19-2025 End: 04-19-2025 Emergency department patient visit Dr. Marci Nuñez DO Work Phone: -Emergency Department Work Phone: Start: 04-19-2025 End: 04-19-[address] Marci Nuñez DO Work Phone: [facility] Work Phone: Start: 04-19-2025 End: 04-19-[address] Danish Tavarez MD -[facility] Work Phone: Start: 04-19-2025 End: 04-19-2025 Dr. Danish Tavarez MD -[facility] Work Phone: Start: 04-06-2025 End: 06-06-2025 Follow-up encounter Leyla Tse MD Work Phone: Neurology Start: 04-04-2025 ambulatory LEYLA TSE Facilit y:[facility] Start: 04-04-2025 End: 04-04-2025 Subsequent hospital visit by physician [facility] (1.5t) Radiology Comment on above: Essential tremor [G2 5.0] Start: 04-02-2025 End: 04-02-2025 Subsequent hospital visit by physician [facility] Work Phone: Radiology Comment on above: Presence of cardiac pacemaker [Z95.0] Start: 04-02-2025 End: 04-02-2025 ambulatory LEYLA TSE Facility:[facility] ital Start: 03-28-2025 End: 03-28-2025 ambulatory Trish Lyle [facility] Specialty Pharmacy Comment on above: Austedo XR approved Start: 03-28-2025 End: 03-28-2025 E-mail encounter from caregiver Trish Lyle [facility] Specialty Pharmacy Start: 03-28-2025 End: 03-28-2025 Telephone encounter Leyla Tse MD Work Phone: Neurology Comment on above: Patient Question Start: 03-10-2025 End: 03-10-2025 ambulatory Linda Valdez RN [facility] Start: 03-10-2025 End: 03-10-2025 Patient encounter procedure Linda Valdez RN [facility] Start: 03-10-2025 End: 03-10-2025 Dr. Jose Jaime DO -Emergency Department Work Phone: Start: 03-10-2025 End: 03-10-2025 Emergency department patient visit Dr. Marci Joaquin DO Work Phone: -Emergency Department Work Phone: Start: 03-09-2025 End: 03-09-2025 Telephone encounter Leyla Tse MD Work Phone: Neurology Comment on above: Orders (valbenazine (INGREZZA) 40 mg capsule) Start: 03-01-2025 End: 03-01-2025 Telephone encounter Leyla Tse MD Work Phone: [facility] Start: 02-28-2025 End: 02-28-2025 ambulatory Wesley Fisher [facility] Work Phone: [facility] Specialty Pharmacy Start: 02-28-2025 End: 02-28-2025 Patient encounter procedure Wesley Fisher [facility] Work Phone: [facility] Specialty Pharmacy Comment on above: SPP Neurology - Lina tment Referral (Ingrezza); Insurance Authorization ([place] Submission Pending) Start: 02-27-2025 End: 02-27-2025 ambulatory LEYLA TSE Facility:[facility] Start: 02-27-2025 End: 02-27-2025 Office outpatient visit 40 minutes Leyla Tse MD Work Phone: Neurology Comment on above: Essential tremor (Pr imary Dx); Dyskinesia, tardive Start: 02-27-2025 End: 02-27-2025 Telephone encounter Leyla Tse MD Work Phone: Neurology Comment on above: Appointment (MRI Bra in WO IVCON) Start: 02-14-2025 End: 02-14-2025 Patient encounter procedure Rosa ROWLEY -[facility] Work Phone: Start: 02-14-2025 End: 02-14-2025 Rosa ROWLEY -[facility] Work Phone: Start: 02-14-2025 End: 02-14-2025 ambulatory Rosa Rodriguez Facility:[facility] Start: 02-13-2025 End: 02-13-2025 Patient encounter procedure Mayte COHEN -[facility] Work Phone: Start: 02-13-2025 End: 02-13-2025 Mayte COHEN -[facility] Work Phone: Start: 02-13-2025 End: 02-13-2025 ambulatory [facility] Facility:[facility] Start: 01-29-2025 End: 01-29-2025 Dr. Danish Tavarez MD -[facility] Work Phone: Start: 01-28-2025 End: 01-29-2025 ambulatory [facility] Start: 01-28-2025 End: 01-29-2025 Patient encounter procedure Sari Parra RN [facility] Clinical Communication Start: 01-23-2025 End: 01-23-[address] Luigi Tinoco MD -[facility] Work Phone: Start: 01-23-2025 End: 01-23-2025 Dr. Luigi Tinoco MD -[facility] Work Phone: Start: 01-23-2025 End: 01-23-2025 ambulatory [facility] Facility:[facility] Start: 01-22-2025 ambulatory [facility] Facility:[facility] Start: 01-22-[address] Kristen Tinoco MD -[facility] Start: 01-22-2025 Dr. Luigi Tinoco MD -[facility] Start: 01-19-2025 End: 01-19-2025 Telephone encounter Leyla Tse MD Work Phone: Neurology Comment on above: Appointment (Time Ch kamilah: 05/15/2025) Start: 01-19-2025 ambulatory [facility] Facility:1 [id number] Start: 01-19-2025 End: 01-19-2025 Subsequent hospital visit by physician [facility] Work Phone: [facility] Comment on above: Solitary pulmonary n odule [R91.1] Start: 01-18-2025 End: 01-18-2025 Patient encounter procedure Kaykay ROWLEY -[facility] Work Phone: Start: 01-18-2025 End: 01-18-2025 Kaykay ROWLEY -[facility] Work Phone: Start: 01-18-2025 End: 01-18-2025 ambulatory Marci Brie Joaquin Facility:[facility] Start: 12-22-2024 ambulatory Rosa Rodriguez [facility] ty:[facility] Start: 12-22-2024 End: 12-22-2024 Patient encounter procedure Marci MaceZeke Nuñez -[facility] Work Phone: Start: 12-22-2024 End: 12-22-2024 ambulatory Marci Brie [facility] Facility:[facility] Start: 12-19-2024 End: 12-19-2024 Patient encounter procedure Dipti ROWLEY -[facility] Work Phone: Start: 12-19-2024 End: 12-19-2024 ambulatory Marci Brie Joaquin Facility:[facility] Start: 12-15-2024 End: 12-15-2024 Patient encounter procedure Rosa ROWLEY -Laboratory, Specimen Work Phone: Start: 12-15-2024 End: 12-15-2024 ambulatory Rosa Rodriguez Facility:[facility] Start: 12-13-2024 End: 12-13-2024 Subsequent hospital visit by physician Marci Nuñez Work Phone: [facility] Pulm Function Test Comment on above: Other forms of dyspn ea Start: 12-13-2024 End: 12-13-2024 ambulatory MARCI [facility] Start: 12-12-2024 End: 12-12-2024 Patient encounter procedure Rosa ROWLEY -[facility] Work Phone: Start: 12-12-2024 End: 12-12-2024 ambulatory Rosa Rodriguez Facility:[facility] Start: 11-28-2024 End: 11-28-[address] Adrienne Christine MD -[facility] Work Phone: Start: 11-28-2024 End: 11-28-2024 ambulatory Adrienne Christine Facility:[facility] Start: 11-24-2024 End: 11-24-2024 Telephone encounter Marci Joaquin Work Phone: [facility] Clinical Communication Comment on above: Other (Discuss Apppo intment) Start: 11-23-2024 End: 11-23-2024 Patient encounter procedure Rosa ROWLEY -[facility] Work Phone: Start: 11-23-2024 End: 11-23-2024 ambulatory Rosa Rodriguez Facility:[facility] Start: 11-18-2024 End: 11-18-2024 Emergency department patient visit Dr. Jose Jaime DO -Emergency Department Work Phone: Start: 11-16-2024 End: 11-16-2024 Telephone encounter Marci Nuñez Work Phone: [facility] Comment on above: Appointment Request Start: 11-14-2024 End: 11-14-2024 ambulatory [facility] Facility:[facility] Start: 11-14-2024 Registered Recurring Marci Nuñez DO -Physical Therapy Work Phone: Start: 11-13-2024 End: 11-14-2024 Telephone encounter Ghazala Mccord MD Work Phone: Rehab Medicine Comment on above: Requesting help with spasticity medication. Start: 11-10-2024 End: 11-10-2024 Subsequent hospital visit by physician Pina Hernandez Work Phone: [facility] Comment on above: Dizziness and giddin ess Start: 11-10-2024 End: 11-10-2024 ambulatory [facility] Start: 11-07-2024 End: 02-06-2025 Transcribe Orders Pina Hernandez RN [facility] Central Scheduling Comment on above: Dizziness and giddin ess (Primary Dx) Start: 11-02-2024 End: 11-02-2024 Emergency department patient visit [facility] Start: 10-30-2024 End: 10-30-2024 ambulatory Danish Tavarez Facility:[facility] Start: 10-17-2024 End: 10-17-2024 ambulatory Rosa Rodriguez Facility:[facility] Start: 10-13-2024 End: 01-12-2025 Transcribe Orders Marci Nuñez Work Phone: [facility] Central Scheduling Comment on above: Other forms of dyspn ea (Primary Dx) Start: 10-06-2024 End: 10-06-2024 Telephone encounter Marci Nuñez Work Phone: [facility] Clinical Communication Comment on above: Other Start: 09-14-2024 End: 09-14-2024 ambulatory [facility] Facility:[facility] Start: 09-09-2024 End: 09-09-2024 Emergency department patient visit [facility] Facility:[facility] Start: 08-28-2024 ambulatory [facility] Facility:[facility] Start: 08-25-2024 ambulatory [facility] Facility:[facility] Start: 08-25-2024 End: 08-25-2024 ambulatory [facility] Facility:[facility] Start: 08-13-2024 End: 08-13-2024 Patient encounter [...] Communication Start: 08-04-2024 End: 08-04-2024 ambulatory Anna Zraco RN [facility] Clinical Communication Start: 08-04-2024 End: 08-04-2024 Patient encounter procedure Anna Goodman Clinical Communication Start: 08-03-2024 End: 08-03-2024 ambulatory Marci Nuñez Facility:[facility] Start: 08-01-2024 End: 08-01-2024 ambulatory Marci Nuñez Facility:[facility] Start: 07-25-2024 End: 07-25-2024 ambulatory Marci Nuñez Facility:[facility] Start: 07-21-2024 End: 07-21-2024 ambulatory Marci Nuñez Facility:[facility] Start: 07-21-2024 ambulatory MARTHA PILLAI Facility :[id number] Start: 07-21-2024 End: 07-21-2024 Subsequent hospital visit by physician [facility] Work Phone: [facility] Comment on above: Solitary pulmonary n odule [R91.1] Start: 07-20-2024 End: 10-19-2024 Transcribe Orders Marci Nuñez Work Phone: [facility] Outaptient Lab Comment on above: Chronic kidney disea se, stage 3a (HCC) (Primary Dx) Start: 07-19-2024 End: 07-19-2024 ambulatory Marci Nuñez Facility:[facility] Start: 07-17-2024 End: 07-17-2024 ambulatory Marci Nuñez Facility:[facility] Start: 07-11-2024 End: 07-11-2024 ambulatory [facility] Start: 07-11-2024 End: 07-11-2024 Patient encounter procedure [facility] Start: 07-11-2024 End: 07-11-2024 Telephone encounter Marci Nuñez Work Phone: [facility] Clinical Communication Comment on above: Other (Needs call jaci lora from office) Start: 07-10-2024 End: 07-10-2024 ambulatory MARCI NUÑEZ [facility] Start: 07-10-2024 End: 10-09-2024 Subsequent hospital visit by physician Marci Nuñez Work Phone: [facility] Radiology Comment on above: Other constipation Other constipation ( Primary Dx) Start: 07-03-2024 End: 07-05-2024 ambulatory Marci Nuñez Facility:[facility] Start: 06-28-2024 End: 06-28-2024 Telephone encounter Mily Rodas E [employer] Work Phone: [facility] Clinical Communication Comment on above: Other ([place] [facility] ent[facility] ) Start: 05-19-2024 End: 05-19-2024 ambulatory ADRIENNE BYERS DO Facility:B Start: 05-19-2024 End: 05-19-[address] JAC CHRISTENSEN MD [facility] Start: 05-17-2024 End: 05-17-2024 Patient encounter procedure Ghazala Mccord MD Work Phone: Rehab Medicine Comment on above: History of stroke (P rimary Dx); Spasticity Start: 04-07-2024 End: 04-07-2024 Patient encounter procedure ADRIENNE BYERS DO [facility] Start: 04-07-2024 End: 04-07-2024 ambulatory ADRIENNE BYERS DO Facility:[facility] Start: 02-29-2024 End: 03-15-2024 Evaluation and management of inpatient Dr. Adrienne Byers Work Phone: [facility]-Transitional Care Unit Start: 02-29-2024 Non-patient / Non-visit Dr. Lauren Byers Work Phone: [facility] Work Phone: Start: 02-28-2024 Non-patient / Non-visit Dr. Lauren Byers Work Phone: [facility] Start: 02-28-2024 Non-patient / Non-visit Dr. Lauren Byers Work Phone: [facility] Work Phone: Start: 02-27-2024 Non-patient / Non-visit Dr. Lauren Byers Work Phone: [facility] Start: 02-27-2024 Non-patient / Non-visit Dr. Lauren Byers Work Phone: [facility] Work Phone: Start: 02-26-2024 Non-patient / Non-visit Dr. Lauren Byers Work Phone: [facility] Start: 02-26-2024 Non-patient / Non-visit Dr. Lauren Byers Work Phone: [facility] Work Phone: Start: 02-25-2024 Non-patient / Non-[facility] Start: 02-25-2024 Non-patient / Non-visit Dr. Lauren Byers Work Phone: [facility] Work Phone: Start: 02-24-2024 Non-patient / Non-visit Dr. Lauren Byers Work Phone: [facility] Start: 02-24-2024 Non-patient / Non-visit Dr. Lauren Byers Work Phone: [facility] Work Phone: Start: 02-23-2024 Non-patient / Non-visit [facility] Start: 02-23-2024 Non-patient / Non-visit Dr. Lauren Byers Work Phone: [facility] Work Phone: Start: 02-22-2024 Non-patient / Non-visit Dr. Lauren Byers Work Phone: [facility] Start: 02-22-2024 Non-patient / Non-visit Dr. Lauren Byers Work Phone: [facility] Work Phone: Start: 02-22-2024 End: 02-22-2024 Non-patient / Non-visit Dr. Adrienne Byers Work Phone: [facility] Work Phone: Start: 02-21-2024 Non-patient / Non-visit Dr. Lauren Byers Work Phone: [facility] Work Phone: Start: 02-21-2024 End: 02-29-2024 Evaluation and management of inpatient Dr. Adrienne Byers [facility] Work Phone: Start: 02-19-2024 End: 02-19-2024 [facility] Start: 02-14-2024 End: 02-14-2024 ambulatory ADRIENNE BYERS DO Facility:B Start: 12-27-2023 End: 12-27-2023 ambulatory ADRIENNE BYERS DO Facility:B Start: 12-27-2023 End: 12-27-2023 Patient encounter procedure ADRIENNE BYERS DO [facility] Start: 12-08-2023 End: 12-08-2023 Emergency department patient visit Dr. Adrienne Byers [facility]: Start: 10-28-2023 End: 01-04-2024 ambulatory ADRIENNE BYERS DO Facility:B Start: 10-25-2023 End: 10-25-2023 ambulatory ADRIENNE BYERS DO Facility:B Start: 10-25-2023 End: 10-25-[address] JAC CHRISTENSEN MD [facility] Start: 10-22-2023 ambulatory Sherif Ramirez MD Work Phone: [facility] Comment on above: Occupational Therapy Start: 10-20-2023 End: 10-20-2023 ambulatory Sherif Ramirez MD Work Phone: [facility] Comment on above: Essential tremor (Pr imary Dx); Tremor of left hand Start: 10-20-2023 End: 10-20-2023 Telemedicine consultation with patient Sherif Ramirez MD Work Phone: [facility] Start: 10-12-2023 Non-patient / Non-visit Dr. Lauren Byers Work Phone: [facility] Work Phone: Start: 10-11-2023 Non-patient / Non-visit Dr. Lauren Byers Work Phone: [facility] Work Phone: Start: 10-10-2023 Non-patient / Non-visit Dr. Lauren Byers Work Phone: [facility] Work Phone: Start: 10-09-2023 Non-patient / Non-visit Dr. Lauren Byers Work Phone: [facility] Work Phone: Start: 10-08-2023 Non-patient / Non-visit Dr. Lauren Byers Work Phone: [facility] Work Phone: Start: 10-07-2023 End: 10-12-2023 Evaluation and management of inpatient Dr. Adrienne Byers Work Phone: [facility] Work Phone: Start: 10-07-2023 End: 10-12-[address] Adrienne Byers Work Phone: [facility] Work Phone: Start: 10-07-2023 Non-patient / Non-visit Dr. Lauren Byers Work Phone: [facility] Work Phone: Start: 10-01-2023 End: 10-07-2023 Evaluation and management of inpatient Dr. Adrienne Byers [facility] Start: 10-01-2023 Non-patient / Non-visit Dr. Lauren Byers Work Phone: [facility] Work Phone: Start: 09-30-2023 Non-patient / Non-visit Dr. Lauren Byers Work Phone: [facility] Work Phone: Start: 09-30-2023 End: 09-30-[address] Adrienne Byers Work Phone: [facility] Work Phone: Start: 09-29-2023 Non-patient / Non-visit Dr. Lauren Byers Work Phone: [facility] Work Phone: Start: 09-29-2023 Non-patient / Non-visit Dr. Lauren Byers Work Phone: [facility] Start: 09-29-2023 Non-patient / Non-visit Dr. 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] Start: 09-21-2023 End: 09-21-2023 Subsequent hospital visit by physician [facility] Start: 09-07-2023 End: 09-07-2023 ambulatory ADRIENNE GAXIOLA Facility:B Start: 09-07-2023 End: 09-07-2023 Patient encounter procedure ADRIENNE BYERS DO [facility] Start: 08-27-2023 ambulatory ADRIENNE BYERS DO Facili ty:B Start: 08-26-2023 End: 08-26-2023 ambulatory ADRIENNE BYERS DO Facility:B Start: 08-18-2023 End: 08-18-2023 ambulatory ADRIENNE BYERS DO Facility:B Start: 08-18-2023 End: 08-18-2023 SAME DAY STAY JAXON KUHN MD [facility] Start: 08-16-2023 ambulatory ADRIENNE BYERS DO Facili ty:B Start: 08-11-2023 End: 08-11-2023 ambulatory ADRIENNE BYERS DO Facility:B Start: 08-11-2023 End: 08-11-2023 SAME DAY STAY JAXON KUHN MD [facility] Start: 08-07-2023 End: 08-07-2023 ambulatory ADRIENNE BYERS DO Facility:B Start: 08-04-2023 End: 08-04-2023 Emergency department patient visit JAXON KUHN MD [facility] Start: 07-21-2023 Refill Sherif Ramirez MD Work Phone: [facility] Comment on above: Refill Request Start: 07-13-2023 End: 07-13-2023 ambulatory ADRIENNE BYERS DO Facility:B Start: 07-01-2023 End: 07-01-2023 Office outpatient visit 25 minutes Sehrif Ramirez MD Work Phone: [facility] Comment on above: 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); Parkinsonism, unspecified Parkinsonism type (HCC) Start: 06-23-2023 ambulatory ADRIENNE BYERS DO Facili ty:B Start: 06-09-2023 End: 06-09-[address] JAC CHRISTENSEN MD Facility:B Start: 06-09-2023 End: 06-09-[address] JAC CHRISTENSEN MD [facility] Start: 05-17-2023 End: 05-17-2023 Patient encounter procedure ADRIENNE BYERS DO [facility] Start: 05-17-2023 Telephone encounter Ghazala davis MD Work Phone: Rehab Medicine Comment on above: Prior Authorization needed for medication Start: 05-14-2023 Telephone encounter Ghazala davis MD Work Phone: Rehab Medicine Comment on above: Insurance Authorizat ion (Baclofen) Start: 05-12-2023 Refill Ghazala Mccord MD Work Phone: Rehab Medicine Comment on above: Med Change Request Start: 05-12-2023 End: 05-12-2023 Patient encounter procedure Ghazala Mccord MD Work Phone: Rehab Medicine Comment on above: History of stroke (P rimary Dx); Spasticity; Spastic hemiparesis (HCC) Start: 12-10-2022 End: 12-10-[address] JAC CHRISTENSEN MD [facility] Start: 11-30-2022 End: 12-04-2022 Outreach Lab ADRIENNE BYERS DO [facility] Start: 11-27-2022 End: 11-27-2022 Patient encounter procedure ADRIENNE BYERS DO [facility] Start: 11-02-2022 End: 11-06-2022 Outreach Lab ADRIENNE BYERS DO [facility] Start: 10-12-2022 Telephone encounter Ghazala davis MD Work Phone: Rehab Medicine Comment on above: Medication question Start: 10-12-2022 End: 10-12-2022 ambulatory Sherif Ramirez MD Work Phone: [facility] Comment on above: Tremor of left hand Start: 10-12-2022 End: 10-12-2022 Telemedicine consultation with patient Sherif Ramirez MD Work Phone: [facility] Start: 10-05-2022 End: 10-05-[address] LARY BHANDARI DO [facility] Start: 09-09-2022 End: 09-09-[address] JAC CHRISTENSEN MD [facility] Start: 08-19-2022 End: 08-20-2022 Emergency department patient visit DR AKIN SALGUERO DO [place] Start: 08-10-2022 End: 08-10-2022 ambulatory Sherif Ramirez MD Work Phone: [facility] Comment on above: 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); Parkinson disease (HCC); Nocturnal muscle cramp Start: 08-10-2022 End: 08-10-2022 Telemedicine consultation with patient Sherif Ramirez MD Work Phone: [facility] Start: 07-20-2022 End: 07-20-[address] JAC CHRISTENSEN MD [facility] Start: 07-14-2022 End: 01-03-2023 Lab-Standing Order QIANA BAKER MD [facility] Start: 07-08-2022 End: 10-19-2022 Cardiac Rehab MITCHELL MARY MD [facility] Start: 07-01-2022 End: 07-01-[address] JAC CHRISTENSEN MD [facility] Start: 06-29-2022 ambulatory Sherif Ramirez MD Work Phone: [facility] Comment on above: Parkinson Disease pr escription Start: 06-23-2022 End: 06-23-2022 Patient encounter procedure Sherif Ramirez MD Work Phone: [facility] Comment on above: Parkinsonism, unspec ified Parkinsonism type (HCC) (Primary Dx); Tremor of left hand Start: 06-09-2022 End: 06-09-[address] JAC CHRISTENSEN MD [facility] Start: 06-04-2022 End: 06-04-2022 Patient encounter procedure Ghazala Mccord MD Work Phone: Spine Medicine Comment on above: Tremor of left hand (Primary Dx) Start: 06-01-2022 End: 06-01-[address] LARY BHANDARI DO [facility] Start: 05-22-2022 End: 05-22-2022 Emergency department patient visit NOREEN HICKS MD [place] Start: 05-01-2022 Refill Ghazala Mccord MD Work Phone: Rehab Medicine Comment on above: Refill Request Start: 05-01-2022 End: 05-01-[address] JAC CHRISTENSEN MD [facility] Start: 04-25-2022 End: 04-26-2022 Emergency department patient visit NATAN ARRIETA DO [facility] Start: 04-03-2022 End: 04-03-[address] JAC CHRISTENSEN MD [place] Start: 04-02-2022 End: 04-02-[address] JAC CHRISTENSEN MD [place] Start: 03-24-2022 End: 03-24-[address] JAC CHRISTENSEN MD [facility] Start: 03-20-2022 End: 03-20-[address] JAC CHRISTENSEN MD [facility] Start: 03-17-2022 End: 03-17-[address] JAC CHRISTENSEN MD [facility] Start: 03-06-2022 End: 03-06-[address] JAC CHRISTENSEN MD [facility] Start: 03-03-2022 End: 03-03-2022 Patient encounter procedure HARISH FISH E [employer]MONITOR WORKER [facility] Start: 02-24-2022 End: 02-24-[address] JAC CHRISTENSEN MD [facility] Start: 02-05-2022 Telephone encounter Ghazala davis MD Work Phone: Spine Medicine Comment on above: Question (medication ) Start: 02-04-2022 End: 02-04-2022 Patient encounter procedure REI SHARIF E [employer]MONITOR WORKER [facility] Start: 01-03-2022 End: 01-03-2022 Patient encounter procedure REI SHARIF E [employer]MONITOR WORKER [facility] Start: 12-29-2021 End: 12-29-[address] BHASKAR LEE MD [facility] Start: 12-24-2021 End: 12-25-2021 Evaluation and management of inpatient MITCHELL MARY MD [place] Start: 12-23-2021 End: 12-24-2021 Emergency department patient visit CATHY MARQUEZ DO [facility] Start: 11-22-2021 End: 12-05-2021 Evaluation and management of inpatient CHRISTINA FINLEY MD [place] Start: 11-21-2021 End: 11-22-2021 Emergency department patient visit JAXON KUHN MD [facility] Start: 11-06-2021 End: 11-06-[address] LARY BHANDARI DO [facility] Start: 10-08-2021 End: 10-08-[address] LARY BHANDARI DO [facility] Start: 09-26-2021 End: 09-26-[address] LARY BHANDARI DO [place] Procedures Date Procedure Procedure Detail Performing Clinician Start: 06-11-2025 Blood count smear mcrscp w/mnl difrntl wbc count Dr. Marci Nuñez DO Work Phone: Start: 06-11-[address] Saranya Nuñez DO Work Phone: Start: 06-11-2025 Mean corpuscular hemoglobin concentration determination Dr. Marci Nuñez DO Work Phone: Start: 06-11-2025 Nucleated red blood cell count procedure Dr. Marci Nuñez DO Work Phone: Start: 06-11-2025 Platelet mean volume determination Dr. Jose Nuñez DO Work Phone: Start: 06-07-[address] Marci magallanes DO Work Phone: Start: 06-05-2025 Endom[address]ial antibody IgA level Dr. Marci Nuñez DO Work Phone: Start: 06-02-[address] Marci Nuñez DO Work Phone: Start: 06-02-[address] Marci Nuñez DO Work Phone: Start: 06-02-2025 Dr. Marci Nuñez DO Work Phone: Start: 06-02-[address] Marci Nuñez DO Work Phone: Start: 06-02-2025 CT of thorax, abdomen and pelvis with contrast Dr. Marci Nuñez DO Work Phone: Start: 06-02-[address] Saranya Nuñez DO Work Phone: Start: 06-02-2025 Mean corpuscular hemoglobin concentration determination Dr. Marci Nuñez DO Work Phone: Start: 06-02-2025 Platelet mean volume determination Dr. Jose Nuñez DO Work Phone: Start: 06-02-[address] Jose Nuñez DO Work Phone: Start: 05-22-2025 Urine microscopy: red cells Dr. Marci beard DO Work Phone: Start: 05-22-2025 Urnls dip stick/tablet reagent auto microscopy Dr. Marci Nuñez DO Work Phone: Start: 05-22-2025 Blood count smear mcrscp w/mnl difrntl wbc count Dr. Marci Nuñez DO Work Phone: Start: 05-22-[address] Saranya Nuñez DO Work Phone: Start: 05-22-2025 Mean corpuscular hemoglobin concentration determination Dr. Marci Nuñez DO Work Phone: Start: 05-22-2025 Nucleated red blood cell count procedure Dr. Marci Nuñez DO Work Phone: Start: 05-22-2025 Platelet mean volume determination Dr. Jose Nuñez DO Work Phone: Start: 05-22-[address] Jose Nuñez DO Work Phone: Start: 05-22-2025 Computed tomography of abdomen and pelvis with contrast Dr. Marci Nuñez DO Work Phone: Start: 05-22-[address] Marci Nuñez DO Work Phone: Start: 05-01-2025 Blood count smear mcrscp w/mnl difrntl wbc count Dr. Marci Nuñez DO Work Phone: Start: 05-01-[address] Saranya Nuñez DO Work Phone: Start: 05-01-2025 Mean corpuscular hemoglobin concentration determination Dr. Marci Nuñez DO Work Phone: Start: 05-01-2025 Nucleated red blood cell count procedure Dr. Marci Nuñez DO Work Phone: Start: 05-01-2025 Platelet mean volume determination Dr. Jose Nuñez DO Work Phone: Start: 04-25-[address] Marci Nuñez DO Work Phone: Start: 04-22-[address] Marci lobo DO Work Phone: Start: 04-22-2025 Total cholesterol:HDL ratio measurement Dr. Marci Nuñez DO Work Phone: Start: 04-21-2025 Blood count smear mcrscp w/mnl difrntl wbc count Dr. Marci Nuñez DO Work Phone: Start: 04-21-[address] Saranya Nuñez DO Work Phone: Start: 04-21-2025 Mean corpuscular hemoglobin concentration determination Dr. Marci Nuñez DO Work Phone: Start: 04-21-2025 Nucleated red blood cell count procedure Dr. Marci Nuñez DO Work Phone: Start: 04-21-2025 Platelet mean volume determination Dr. Jose Nuñez DO Work Phone: Start: 04-20-[address] Saranya Nuñez DO Work Phone: Start: 04-20-2025 Mean corpuscular hemoglobin concentration determination Dr. Marci Nuñez DO Work Phone: Start: 04-20-2025 Platelet mean volume determination Dr. Jose Nuñez DO Work Phone: Start: 04-19-2025 Urine microscopy: red cells Dr. Marci beard DO Work Phone: Start: 04-19-2025 Urnls dip stick/tablet reagent auto microscopy Dr. Marci Nuñez DO Work Phone: Start: 04-19-2025 Blood count smear mcrscp w/mnl difrntl wbc count Dr. Marci Nuñez DO Work Phone: Start: 04-19-[address] Saranya Nuñez DO Work Phone: Start: 04-19-2025 Nucleated red blood cell count procedure Dr. Marci Nuñez DO Work Phone: Start: 04-04-2025 Mri brain brain stem w/o contrast material Leyla Tse MD Work Phone: Start: 03-10-2025 Urine microscopy: red cells Dr. Marci beard DO Work Phone: Start: 03-10-2025 Urnls dip stick/tablet reagent auto microscopy Dr. Marci Nuñez DO Work Phone: Start: 03-10-2025 Plain x-ray of pelvis and lower extremity Dr. Marci Nuñez DO Work Phone: Start: 03-10-2025 Blood count smear mcrscp w/mnl difrntl wbc count Dr. Marci Nuñez DO Work Phone: Start: 03-10-[address] Saranya Nuñez DO Work Phone: Start: 03-10-2025 Mean corpuscular hemoglobin concentration determination Dr. Marci Nuñez DO Work Phone: Start: 03-10-2025 Nucleated red blood cell count procedure Dr. Marci Nuñez DO Work Phone: Start: 03-10-2025 Platelet mean volume determination Dr. Jose Nuñez DO Work Phone: Start: 01-22-2025 Blood count smear mcrscp w/mnl difrntl wbc count Dr. Marci Nuñez DO Work Phone: Start: 01-22-[address] Saranya Nuñez DO Work Phone: Start: 01-22-[address] Saranya Nuñez DO Work Phone: Start: 01-22-2025 Mean corpuscular hemoglobin concentration determination Dr. Marci Nuñez DO Work Phone: Start: 01-22-2025 Nucleated red blood cell count procedure Dr. Marci Nuñez DO Work Phone: Start: 01-22-2025 Platelet mean volume determination Dr. Jose Nuñez DO Work Phone: Start: 01-22-2025 Total iron binding capacity measurement Dr. Marci Nuñez DO Work Phone: Start: 12-22-[address] Marci Nuñez DO Work Phone: Start: 12-22-2024 MRI of neck vessels with contrast Dr. Pacheco Nuñez DO Work Phone: Start: 12-13-2024 Brncdilat rspse spmtry pre&post-brncdilat neno Nuñez Work Phone: Start: 11-18-2024 Computed tomography of abdomen and pelvis with intravenous contrast Dr. Marci Nuñez DO Work Phone: Start: 08-13-[address] attenuation skull base mid-thigh [facility] Start: 08-13-2024 Gluc bld gluc mntr dev cleared fda spec home use [facility] Provider Start: 07-21-2024 Ct thorax w/o contrast material Martha cotton MD Work Phone: Start: 07-17-2024 Calculation of international normalized ratio Dr. Marci Nuñez DO Work Phone: Start: 02-26-2024 Urine culture [...] defibrillator (ICD) using fluoroscopic guidance DR LARY BHANDARI DO Comment on above: Implantation Biventricular ICD MILL OPERATOR HEAD-D 04/23 Dr Ashley Evans Generator [employer] G247 VIGILANT X4 MILL OPERATOR HEAD-D Serial [id number] RA Lead [employer] 7840 Ingevity + MRI Serial [id number] 05/12/2022 RV Lead [employer] 0675 [place] 4 Front Serial [id number] 05/12/2022 LV Lead [employer] 4674 Acuity X4 Spiral Short Serial [id number] 05/12/2022 Start: 04-21-2022 Cardiac [facility] Comment on above: Dilated left ventricle with global hypok inesia, relative septal wall hypokinesia/akinesia, and mild lateral free wall dyskinesia associated with curvilinear mesocardial LGE of the inferoseptal wall, suggesting nonischemic dilated cardiomyopathy. diminished LVEF 31.2% Start: 03-30-2022 Echocardiography NATAN ARRIETA DO Comment on above: EF 35-40%. Start: 12-03-[address] REMY LEE MD Comment on above: SUMMARY: 1. [...] Start: 11-26-2021 Cardiac catheter (physical object) DR REMY LEE MD Comment on above: SUMMARY: 1. [...] Start: 10-23-2021 Adult depression screening assessment Ghazala Mccord MD Work Phone: Start: 10-22-[address] LARY POWELL DO Comment on above: Negative for gross ischemia or infarct, EF 58% Start: 10-22-[address] LARY BHANDARI DO Comment on above: EF 50 + or - 5% Start: 09-09-[address] LARY BHANDARI DO Start: 04-29-[address] LARY RODRIGUEZ DO Start: 09-03-[address] LARY BHANDARI DO Comment on above: EF 60-65% Start: 02-21-2015 Colonoscopy Ghazala Mccord MD Work Phone: Start: 06-18-2010 Lipid 1996 panel - Serum or Plasma Dougl as Brown DO Work Phone: Cholecystectomy DR LARY BROWN DO Colonoscopy DR LARY Waddell DO Insertion of cardiac biventricular implantable cardioverter defibrillator (ICD) using fluoroscopic guidance NOREEN HICKS MD Comment on above: Implantation Biventricular ICD MILL OPERATOR HEAD-D 04/23 Dr Ashley Evans Generator [employer] G247 VIGILANT X4 MILL OPERATOR HEAD-D Serial [id number] RA Lead [employer] 7840 Ingevity + MRI Serial [id number] 05/12/2022 RV Lead [employer] 0675 [place] 4 Front Serial [id number] 05/12/2022 LV Lead [employer] 4674 Acuity X4 Spiral Short Serial [id number] 05/12/2022 Ophthalmic surgery ( qualifier value) DR LARY BHANDARI DO Comment on above: CORRECTED CROSS EYES A CHILD Tonsillectomy DR LARY RUIZ DO Comment on above: A CHILD Plan of Treatment Date Care Activity Detail Author Start: 2028 RSV Vaccine (1 - 1-d ose 75+ series) RSV Vaccine (1 - 1-dose 75+ series) [facility] Start: 07-20-2027 Diabetes Screening Diabetes Screenin g [facility] Start: 07-23-2025 Influenza vaccination S [facility] Start: 07-20-2025 Creatinine measurement Creatinine [facility] Start: 07-20-2025 Diabetes: Estimated Glomerular Filtration Rate for [facility] Diabetes: Estimated Glomerular Filtration Rate for [facility] Start: 07-20-2025 Potassium measurement Potassium Levsantiago l [facility] Start: 06-29-2025 End: 06-29-2025 Patient encounter procedure 06/29/2025 11:00 AM EDT Office Visit Neurology [address] [id number] Cecilia Owens, E COMMER[employer] RETAILER.MONITOR WORKER [address] [place] [address] FOLLOW UP Neurology Comment on above: FOLLOW UP Start: 06-19-2025 End: 06-19-2025 Specialty Pharmacy 06/19/2025 7:45 AM EDT Specialty Pharmacy [facility] [address] [place], [place] [id number] [place] [address] Pharmacist, Specialty[address] [place] [address] Refill - [place] - [facility] Comment on above: Refill - [facility] - Start: 06-11-2025 Referral to service [facility] Start: 06-11-2025 [facility] Start: 06-07-2025 End: 06-07-2025 Patient encounter procedure 06/07/2025 10:00 AM EDT Office Visit Neurology [address] [id number] Leyla Tse MD [address] [facility] [address] [place] [address] 3 month follow up - 60 minutes per [facility] Neurology Comment on above: 3 month follow up - 60 minutes per [facility] Start: 06-06-2025 Referral to occupati onal therapist [facility] Start: 06-06-2025 Referral to service [facility] Start: 06-06-2025 Speech therapy assessment [facility] Start: 06-06-2025 Referral to gastroenterology service [facility] Start: 06-06-2025 Consultation [facility] Start: 06-04-2025 [facility] Start: 06-03-2025 Following clinical p athway protocol [facility] Start: 06-02-2025 Following clinical p athway protocol [facility] Start: 06-02-2025 Ambulation without limitation [facility] Start: 06-02-2025 Assessment of risk o f venous thromboembolism [facility] Start: 06-02-2025 Catheterization of vein [facility] Start: 06-02-2025 Inhalation therapy procedure [facility] Start: 06-02-2025 Insertion of cathete r into peripheral vein [facility] Start: 06-02-2025 Providing care accor ding to standard [facility] Start: 06-02-2025 [facility] Start: 06-02-2025 Verification routine [facility] Start: 06-02-2025 Admission procedure [facility] Start: 06-02-2025 Hospital admission, emergency, from emergency room, medical nature [facility] Start: 06-02-2025 Taking nasal swab [facility] Start: 06-02-2025 Bacteria identified in Sputum by Culture [facility] Start: 06-02-2025 End: 06-02-2025 [facility] Start: 05-23-2025 End: 05-23-2025 Specialty Pharmacy 05/23/2025 7:45 AM EDT Specialty Pharmacy [facility] [address] [place], [place] [id number] [place] [address] Pharmacist, Specialty[address] [place] [address] Refill - [place] - No Answer/WAM 05/21 [facility] Comment on above: Refill - [place] - N o Answer/WAM 05/21 Start: 05-22-2025 End: 05-22-2025 [facility] Start: 05-21-2025 End: 05-21-2025 Specialty Pharmacy 05/21/2025 8:00 AM EDT Specialty Pharmacy [id number] [place] [address] Pharmacist, Specialtygroup3 [address] [place] [address] Refill - [facility] - [facility] Comment on above: Refill - [facility] - Start: 05-15-2025 End: 05-15-2025 Patient encounter procedure 05/15/2025 4:00 PM EDT Office Visit Neurology [address] [place] [address] [id number] Leyla Tse MD [address] [place] [address] [id number] NEW PATIENT (previous patient of Dr. Ramirez) - Essential tremors Neurology Comment on above: NEW PATIENT (previou s patient of Dr. Ramirez) - Essential tremors Start: 05-04-2025 Development of care plan [facility] Start: 05-03-2025 [facility] Start: 05-03-2025 Patient discharge [facility] Start: 05-02-2025 [facility] Start: 05-02-2025 Speech therapy management [facility] Start: 04-27-2025 [facility] Start: 04-25-2025 Egd transoral biopsy single/multiple [facility] Start: 04-25-2025 Patient discharge [facility] Start: 04-24-2025 Preparation of bowel for procedure [facility] Start: 04-24-2025 [facility] Start: 04-24-2025 Speech therapy management [facility] Start: 04-24-2025 Speech therapy assessment [facility] Start: 04-24-2025 Verification routine [facility] Start: 04-23-2025 [facility] Start: 04-23-2025 End: 04-23-2025 Specialty Pharmacy 04/23/2025 7:00 AM EDT Specialty Pharmacy [facility] [address] [place] [address] [id number] [place] [address] Pharmacist, [facility] [address] [place] [address] [place] [address] Refill [facility] Comment on above: Refill [facility] Start: 04-22-2025 [facility] Start: 04-21-2025 Development of care plan [facility] Start: 04-21-2025 Developing a treatme nt plan [facility] Start: 04-20-2025 Admission procedure [facility] Start: 04-20-2025 Following clinical p athway protocol [facility] Start: 04-20-2025 Introduction of urin dl catheter [facility] Start: 04-20-2025 Measuring intake and output [facility] Start: 04-20-2025 Patient referral to dietitian [facility] Start: 04-20-2025 Referral to occupati onal therapist [facility] Start: 04-20-2025 Referral to service [facility] Start: 04-20-2025 Vital signs measurements [facility] Start: 04-20-2025 End: 04-20-2025 [facility] Start: 04-20-2025 Patient discharge [facility] Start: 04-20-2025 [facility] Start: 04-19-2025 Following clinical p athway protocol [facility] Start: 04-19-2025 Ambulation without limitation [facility] Start: 04-19-2025 Assessment of risk o f venous thromboembolism [facility] Start: 04-19-2025 Care regimes management [facility] Start: 04-19-2025 Incentive spirometry [facility] Start: 04-19-2025 Insertion of cathete r into peripheral vein [facility] Start: 04-19-2025 Notification of physician [facility] Start: 04-19-2025 Oxygen therapy [facility] Start: 04-19-2025 Providing care accor ding to standard [facility] Start: 04-19-2025 Referral to occupati onal therapist [facility] Start: 04-19-2025 Referral to service [facility] Start: 04-19-2025 End: 04-19-2025 [facility] Start: 04-19-2025 Hospital admission, emergency, from emergency room, medical nature [facility] Start: 04-19-2025 Admission procedure [facility] Start: 04-19-2025 Consultation [facility] Start: 04-19-2025 Referral to service [facility] Start: 04-19-2025 Inhalation therapy procedure [facility] Start: 04-04-2025 End: 04-04-2025 Patient encounter procedure 04/04/2025 12:00 PM EDT Appointment Radiology [facility] [place] [address] DUE TO PT IMPLANT- IF APPT NEEDS TO BE RESCHEDULED IT MUST BE SENT TO THE FOLLOWING STAFF MESSAGE ADDRESS: IMAGING IMPLANTS [[id number]]PACEMAKER approved to schedule by Radiology Comment on above: DUE TO PT IMPLANT- I F APPT NEEDS TO BE RESCHEDULED IT MUST BE SENT TO THE FOLLOWING STAFF MESSAGE ADDRESS: IMAGING IMPLANTS [[id number]]PACEMAKER approved to schedule by Start: 04-02-2025 End: 04-02-2025 Patient encounter procedure Cardiology Comment on above: DEVICE CHECK FOR MRI CLEARANCE CHEST XRAY FOR MRI [facility] Start: 03-11-2025 DTaP/Tdap/Td Vaccine s (2 - Td or Tdap) DTaP/Tdap/Td Vaccines (2 - Td or Tdap) [facility] Start: 03-11-2025 Urine microalbumin profile DTa P,Tdap,Td Vaccine (2 - Td or Tdap) [facility] Start: 03-10-2025 [facility] Start: 02-13-2025 Patient referral [facility] Work Phone: Start: 12-13-2024 End: 12-13-2024 Patient encounter procedure 12/13/2024 8:30 AM EST Appointment [facility] [address] [place] [phone] JoaquinMarci [place] [phone] [facility] Start: 12-12-2024 Patient referral [facility] Work Phone: Start: 11-22-2024 Advance Directive Discussion Advance Directive Discussion [facility] Start: 11-22-2024 Medicare Advantage A nnual Wellness Visit Medicare Advantage Annual Wellness Visit [facility] Start: 11-18-2024 [facility] Start: 07-23-2024 Covid-19 Vaccine ( season) Covid-19 Vaccine ( season) [facility] Start: 07-23-2024 Covid-19 Vaccine () Covid-19 Vaccine () [facility] Start: 07-23-2024 Influenza vaccination C [facility] Start: 03-29-2024 Blood chemistry [facility] Start: 03-22-2024 Blood chemistry [facility] Start: 03-15-2024 Patient discharge [facility] Start: 03-14-2024 Referral to service [facility] Start: 03-14-2024 Development of care plan [facility] Start: 03-07-2024 Speech therapy management [facility] Start: 03-07-2024 Speech therapy assessment [facility] Start: 03-06-2024 [facility] Start: 03-02-2024 Fluid intake encouragement [facility] Start: 03-01-2024 Development of care plan [facility] Start: 03-01-2024 Developing a treatme nt plan [facility] Start: 02-29-2024 Verification routine [facility] Start: 02-29-2024 Admission procedure [facility] Start: 02-29-2024 Measuring intake and output [facility] Start: 02-29-2024 Patient referral to dietitian [facility] Start: 02-29-2024 Referral to occupati onal therapist [facility] Start: 02-29-2024 Referral to service [facility] Start: 02-29-2024 Vital signs measurements [facility] Start: 02-29-2024 [facility] Start: 02-29-2024 Patient discharge [facility] Start: 02-29-2024 Patient referral to [facility] health[facility] Start: 02-26-2024 Consultation [facility] Start: 02-25-2024 End: 02-25-2024 Blood culture [facility] Start: 02-25-2024 [facility] Start: 02-25-2024 Bacteria identified in Blood by Culture Blood Culture [facility] Start: 02-22-2024 [facility] Start: 02-22-2024 Referral to occupati onal therapist [facility] Start: 02-22-2024 Referral to service [facility] Start: 02-21-2024 Application of intermittent pneumatic compression device [facility] Start: 02-21-2024 Ambulation without limitation [facility] Start: 02-21-2024 Assessment of risk o f venous thromboembolism [facility] Start: 02-21-2024 Insertion of cathete r into peripheral vein [facility] Start: 02-21-2024 Providing care accor ding to standard [facility] Start: 02-21-2024 Referral to gastroenterology service [facility] Start: 02-21-2024 [facility] Start: 02-21-2024 Following clinical p athway protocol [facility] Start: 02-21-2024 Verification routine [facility] Start: 02-21-2024 Admission procedure [facility] Start: 02-21-2024 Hospital admission, emergency, from emergency room, medical nature [facility] Start: 02-21-2024 [facility] Start: 02-21-2024 Patient referral to [facility] Start: 02-19-2024 [facility] Start: 02-19-2024 Emergency department visit moderate severity EMERGENCY DEPT VISIT LOW MDM [facility] Start: 02-19-2024 Iv infusion hydratio n each additional hour HYDRATE IV INFUSION ADD-ON [facility] Start: 02-19-2024 Iv infusion hydratio n initial 31 min-1 hour HYDRATION IV INFUSION INIT [facility] Start: 12-10-2023 [facility] Start: 12-08-2023 [facility] Start: 11-22-2023 Advance Directive Discussion Advance Directive Discussion [facility] Start: 11-22-2023 Behavioral Health Screening Behavioral Health Screening [facility] Start: 11-22-2023 Medicare Advantage A nnual Wellness Visit Medicare Advantage Annual Wellness Visit [facility] Start: 10-12-2023 Patient discharge [facility] Start: 10-08-2023 Development of care plan [facility] Start: 10-08-2023 [facility] Start: 10-07-2023 Following clinical p athway protocol [facility] Start: 10-07-2023 Aspiration precautions [facility] Start: 10-07-2023 Assessment of risk o f venous thromboembolism [facility] Start: 10-07-2023 Cardiac monitoring [facility] Start: 10-07-2023 Care regimes management [facility] Start: 10-07-2023 Catheterization of vein [facility] Start: 10-07-2023 Elevation of head of bed [facility] Start: 10-07-2023 Exercises [facility] Start: 10-07-2023 Fall prevention [facility] Start: 10-07-[address] anned interventions [facility] Start: 10-07-2023 Inhalation therapy procedure [facility] Start: 10-07-2023 Insertion of cathete r into peripheral vein [facility] Start: 10-07-2023 Introduction of urin dl catheter [facility] Start: 10-07-2023 Measuring intake and output [facility] Start: 10-07-2023 Notification of physician [facility] Start: 10-07-2023 Providing care accor ding to standard [facility] Start: 10-07-2023 Provision of activit y privileges [facility] Start: 10-07-2023 Referral to occupati onal therapist [facility] Start: 10-07-2023 Referral to service [facility] Start: 10-07-2023 Speech therapy assessment [facility] Start: 10-07-2023 Tobacco use cessatio n education [facility] Start: 10-07-2023 [facility] Start: 10-07-2023 Vital signs measurements [facility] Start: 10-07-2023 Verification routine [facility] Start: 10-07-2023 Hospital admission, emergency, from emergency room, medical nature [facility] Start: 10-07-2023 Admission procedure [facility] Start: 10-07-2023 Oxygen therapy [facility] Start: 10-07-2023 [facility] Start: 10-07-2023 Patient discharge [facility] Start: 10-02-2023 Speech therapy management [facility] Start: 10-02-2023 Developing a treatme nt plan [facility] Start: 10-02-2023 Development of care plan [facility] Start: 10-01-2023 Admission procedure [facility] Start: 10-01-2023 Measuring intake and output [facility] Start: 10-01-2023 Patient referral to dietitian [facility] Start: 10-01-2023 Referral to occupati onal therapist [facility] Start: 10-01-2023 Referral to service [facility] Start: 10-01-2023 Vital signs measurements [facility] Start: 10-01-2023 End: 10-01-2023 [facility] Start: 10-01-2023 Speech therapy assessment [facility] Start: 10-01-2023 Patient discharge [facility] Start: 09-29-2023 [facility] Start: 09-28-2023 Following clinical p athway protocol [facility] Start: 09-28-2023 Cardiac monitoring [facility] Start: 09-28-2023 Catheterization of vein [facility] Start: 09-28-2023 Elevation of head of bed [facility] Start: 09-28-2023 Exercises [facility] Start: 09-28-[address] anned interventions [facility] Start: 09-28-2023 Notification of physician [facility] Start: 09-28-2023 Oxygen therapy [facility] Start: 09-28-2023 Patient referral to dietitian [facility] Start: 09-28-2023 Referral to occupati onal therapist [facility] Start: 09-28-2023 Referral to service [facility] Start: 09-28-2023 Speech therapy assessment [facility] Start: 09-28-2023 Tobacco use cessatio n education [facility] Start: 09-28-2023 [facility] Start: 09-28-2023 Vital signs measurements [facility] Start: 09-28-2023 Admission procedure [facility] Start: 09-28-2023 Hospital admission, emergency, from emergency room, medical nature [facility] Start: 09-28-2023 Oxygen therapy [facility] Start: 09-28-2023 [facility] Start: 08-07-2023 Adult depression scr eening assessment DEPRESSION SCREENING [facility] Start: 07-23-2023 COVID-19 Vaccine ( season) COVID-19 Vaccine () [facility] Start: 07-23-2023 Covid-19 Vaccine ( season) Covid-19 Vaccine ( season) [facility] Start: 07-23-2023 Influenza vaccination C [facility] Start: 11-22-2022 ADVANCE DIRECTIVE DISCUSSION ADVANCE DIRECTIVE DISCUSSION [facility] Start: 11-22-2022 DEPRESSION ASSESSMENT DEPRESSION ASS ESSMENT [facility] Start: 10-23-2022 Adult depression scr eening assessment DEPRESSION SCREENING [facility] Start: 07-23-2022 Influenza vaccination INFLUENZA (#1) [facility] Start: 02-25-2022 COVID-19 VACCINE (4 - Booster for Moderna series) COVID-19 VACCINE (4 - Booster for Moderna series) [facility] Start: 12-22-2021 COVID-19 VACCINE (4 - Booster for Moderna series) COVID-19 VACCINE (4 - Booster for Moderna series) [facility] Start: 12-22-2021 COVID-19 VACCINE (5 - Booster for Moderna series) COVID-19 VACCINE (5 - Booster for Moderna series) [facility] Start: 12-22-2021 COVID-19 VACCINE (5 - Moderna series) COVID-19 VACCINE (5 - Moderna series) [facility] Start: 11-22-2021 ADVANCE DIRECTIVE DISCUSSION ADVANCE DIRECTIVE DISCUSSION [facility] Start: 11-22-2021 DEPRESSION ASSESSMENT DEPRESSION ASS ESSMENT [facility] Start: 02-22-2020 Colonoscopy COLONOSCOPY [facility] Start: 02-22-2020 COLORECTAL CANCER SCREENING COLORECTAL CANCER SCREENING [facility] Start: 02-22-2020 Screening for malign ant neoplasm of colon [facility] Start: 2018 BONE DENSITY BONE DENSITY [facility] Start: 2018 Bone Density Screening Bone Density Screening [facility] Start: 2018 Pneumococcal Vaccine : 65+ (1 - PCV) Pneumococcal Vaccine: 65+ (1 - PCV) [facility] Start: 2018 Pneumococcal Vaccine : 65+ (1 of 1 - PCV) Pneumococcal Vaccine: 65+ (1 of 1 - PCV) [facility] Start: 2018 Pneumococcal Vaccine : 65+ Years (1 of 1 - PCV) Pneumococcal Vaccine: 65+ Years (1 of 1 - PCV) [facility] Start: 2018 PNEUMOCOCCAL: 65+ (1 - PCV) PNEUMOCOCCAL: 65+ (1 - PCV) [facility] Start: 2018 PNEUMOVAX AGE 65 AND OVER WITH 5YR LOOKBACK (#1) PNEUMOVAX AGE 65 AND OVER WITH 5YR LOOKBACK (#1) [facility] Start: 2018 Screening for osteoporosis Bone Dens ity Screening [facility] Start: 06-18-2015 Lipid 1996 panel - S george or Plasma Lipid Screening [facility] Start: 06-18-2015 Lipid panel Lipid Screening [facility] Start: 06-18-2015 LIPID SCREEN LIPID SCREEN [facility] Start: 05-06-2015 Shingrix Vaccine (2 of 3) Moran grix Vaccine (2 of 3) [facility] Start: 2013 RSV Immunization age d 60 or older (1 - 1-dose 60+ series) RSV Immunization aged 60 or older (1 - 1-dose 60+ series) [facility] Start: 2013 RSV Immunization for Adults (1 - Risk 60-74 years 1-dose series) RSV Immunization for Adults (1 - Risk 60-74 years 1-dose series) [facility] Start: 2013 RSV Vaccine (1 - 1-d ose 60+ series) RSV Vaccine (1 - 1-dose 60+ series) [facility] Start: 2013 RSV Vaccine (1 - Ris k 60-74 years 1-dose series) RSV Vaccine (1 - Risk 60-74 years 1-dose series) [facility] Start: 2012 DIABETES SCREEN DIABETES SCREEN [facility] Start: 2012 Diabetes Screening Diabetes Screenin g [facility] Start: 2008 Influenza vaccination LUNG CANCER [facility] Start: 2003 Influenza vaccination LUNG CANCER [facility] Start: 2003 Pneumococcal Vaccine : 50+ (1 of 1 - PCV) Pneumococcal Vaccine: 50+ (1 of 1 - PCV) [facility] Start: 2003 SHINGRIX VACCINE (1 of 2) MORAN GRIX VACCINE (1 of 2) [facility] Start: 2003 Zoster Vaccines (1 of 2) Zoste r Vaccines (1 of 2) [facility] Start: 1998 COLOGUARD (FIT-DNA) COLOGUARD (FIT-D NA) [facility] Start: [address] COLONOGRAPHY [facility] Start: 1998 FECAL OCCULT BLOOD FECAL OCCULT BLOO D [facility] Start: 1998 Screening for malign ant neoplasm of colon [facility] Start: 1998 SIGMOIDOSCOPY SIGMOIDOSCOPY [facility] Start: 1993 Mammography [facility] Start: 1993 Screening for malign ant neoplasm of breast [facility] Start: 1972 DTaP/Tdap/Td Vaccine s (1 - Tdap) DTaP/Tdap/Td Vaccines (1 - Tdap) [facility] Start: 1972 Pneumococcal Vaccine : 50+ Years (1 of 2 - PCV) Pneumococcal Vaccine: 50+ Years (1 of 2 - PCV) [facility] Start: 1972 Urine microalbumin profile DTAP,TDAP ,TD (1 - Tdap) [facility] Start: 1971 Anxiety Screening Anxiety Screening [facility] Start: 1971 Depression Screening Depression Scre ening [facility] Start: 1971 Diabetes: Estimated Glomerular Filtration Rate for Kidney Health Diabetes: Estimated Glomerular Filtration Rate for Kidney Health [facility] Start: 1971 Diabetes: Urine Albumin-Creatinine Ratio for [facility] Health Diabetes: Urine Albumin-Creatinine Ratio for Kidney Health [facility] Start: 1971 HEPATITIS C SCREENING HEPATITIS C [facility] Start: 1971 Hepatitis C screening Hepatitis C [facility] Start: 1965 Depression Monitoring Depression Gopal stevenson [facility] Start: 1965 Depression Screening Depression Scre rickey [facility] Start: 1963 Diabetic foot examination Diabetes: Foot Exam [facility] Start: 1963 Glaucoma screening Diabetes: R etinopathy Screening [facility] Start: 1963 Preventive dental service Diabetes: Dental Exam [facility] Start: 1959 Pneumococcal Vaccine : 65+ Years (1 of 2 - PCV) Pneumococcal Vaccine: 65+ Years (1 of 2 - PCV) [facility] Start: 1953 Creatinine measurement Creatinine Le jana [facility] Start: 1953 Echocardiography Echocardiogram [facility] Start: 1953 Hemoglobin A1c measurement Rylie betes: Hemoglobin A1C [facility] Start: 1953 Lipid panel Lipid Panel [facility] Start: 1953 Potassium measurement Potassium Leve l [facility] Start: 1953 Screening for malign ant neoplasm of colon [facility] Start: 1953 Screening for osteoporosis Bone Dens ity Scan [facility] Anion gap in Serum o r Plasma [facility] Anion gap in Serum o r Plasma [facility] Anion gap in Serum o r Plasma [facility] Anion gap in Serum o r Plasma [facility] Anion gap in Serum o r Plasma [facility] BUN/Creatinine ratio [facility] BUN/Creatinine ratio [facility] BUN/Creatinine ratio [facility] BUN/Creatinine ratio [facility] BUN/Creatinine ratio [facility] Calcium [Mass/volume ] in Serum or Plasma [facility] Calcium [Mass/volume ] in Serum or Plasma [facility] Calcium [Mass/volume ] in Serum or Plasma [facility] Calcium [Mass/volume ] in Serum or Plasma [facility] Calcium [Mass/volume ] in Serum or Plasma [facility] Carbon dioxide, tota l [Moles/volume] in Central venous blood [facility] Carbon dioxide, tota l [Moles/volume] in Central venous blood [facility] Carbon dioxide, tota l [Moles/volume] in Central venous blood [facility] Carbon dioxide, tota l [Moles/volume] in Central venous blood [facility] Carbon dioxide, tota l [Moles/volume] in Central venous blood [facility] Creatinine [Mass/vol ume] in Serum or Plasma [facility] Creatinine [Mass/vol ume] in Serum or Plasma [facility] Creatinine [Mass/vol ume] in Serum or Plasma [facility] Creatinine [Mass/vol ume] in Serum or Plasma [facility] Creatinine [Mass/vol ume] in Serum or Plasma [facility] Erythrocyte mean corpuscular volume determination [facility] Erythrocyte mean corpuscular volume determination [facility] Erythrocyte mean corpuscular volume determination [facility] Erythrocyte mean corpuscular volume determination [facility] Erythrocyte mean corpuscular volume determination [facility] Glucose [Mass/volume ] in Serum or Plasma [facility] Glucose [Mass/volume ] in Serum or Plasma [facility] Glucose [Mass/volume ] in Serum or Plasma [facility] Glucose [Mass/volume ] in Serum or Plasma [facility] Glucose [Mass/volume ] in Serum or Plasma [facility] Hematocrit [Volume Fraction] of Blood [facility] Hematocrit [Volume Fraction] of Blood [facility] Hematocrit [Volume Fraction] of Blood [facility] Hematocrit [Volume Fraction] of Blood [facility] Hematocrit [Volume Fraction] of Blood [facility] Hemoglobin [Mass/vol ume] in Blood [facility] Hemoglobin [Mass/vol ume] in Blood [facility] Hemoglobin [Mass/vol ume] in Blood [facility] Hemoglobin [Mass/vol ume] in Blood [facility] Hemoglobin [Mass/vol ume] in Blood [facility] Leukocytes [#/volume ] in Blood [facility] Leukocytes [#/volume ] in Blood [facility] Leukocytes [#/volume ] in Blood [facility] Leukocytes [#/volume ] in Blood [facility] Leukocytes [#/volume ] in Blood [facility] Mean corpuscular hemoglobin concentration determination [facility] Mean corpuscular hemoglobin concentration determination [facility] Mean corpuscular hemoglobin concentration determination [facility] Mean corpuscular hemoglobin concentration determination [facility] Mean corpuscular hemoglobin concentration determination [facility] Mean corpuscular hemoglobin determination [facility] Mean corpuscular hemoglobin determination [facility] Mean corpuscular hemoglobin determination [facility] Mean corpuscular hemoglobin determination [facility] Mean corpuscular hemoglobin determination [facility] Measurement of renal function [facility] Measurement of renal function [facility] Measurement of renal function [facility] Measurement of renal function [facility] Measurement of renal function [facility] End: 03-29-2026 MR Brain WO contrast MRI BRAIN WO IVCON Radiology Routine Essential tremor Dyskinesia, tardive 1 Occurrences starting 02/27/2025 until 03/29/[address] [facility] Work Phone: Comment on above: 1 Occurrences starti ng 02/27/2025 until 03/29/2026 Neutrophil count [facility] Neutrophil count [facility] Neutrophil count [facility] Neutrophil count [facility] Neutrophil count [facility] Neutrophil percent differential count [facility] Neutrophil percent differential count [facility] Neutrophil percent differential count [facility] Neutrophil percent differential count [facility] Neutrophil percent differential count [facility] End: 07-30-2024 NM BRAIN TREMOR SPECT/CT NM BRAIN TREMOR SPECT/CT Radiology Routine 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 Work Phone: OUTSIDE PROCEDURE SCAN OUTSIDE P ROCEDURE SCAN Procedures Ordered: 07/20/2024 [facility] Comment on above: Ordered: 07/20/2024 Patient Education [facility] Work Phone: Patient referral [facility] Work Phone: Platelets [#/volume] in Blood [facility] Platelets [#/volume] in Blood [facility] Platelets [#/volume] in Blood [facility] Platelets [#/volume] in Blood [facility] Platelets [#/volume] in Blood [facility] Potassium measurement [facility] Potassium measurement [facility] Potassium measurement [facility] Potassium measurement [facility] Potassium measurement [facility] Red blood cell count [facility] Red blood cell count [facility] Red blood cell count [facility] Red blood cell count [facility] Red blood cell count [facility] Red cell distributio n width determination [facility] Red cell distributio n width determination [facility] Red cell distributio n width determination [facility] Red cell distributio n width determination [facility] Red cell distributio n width determination [facility] Respiratory pathogen s DNA and RNA panel - Respiratory specimen by ENRIQUE with probe detection [facility] Serum chloride measurement [facility] Serum chloride measurement [facility] Serum chloride measurement [facility] Serum chloride measurement [facility] Serum chloride measurement [facility] Sodium measurement [facility] Sodium measurement [facility] Sodium measurement [facility] Sodium measurement [facility] Sodium measurement [facility] Urea nitrogen [Mass/volume] in Serum or Plasma [facility] Urea nitrogen [Mass/volume] in Serum or Plasma [facility] Urea nitrogen [Mass/volume] in Serum or Plasma [facility] Urea nitrogen [Mass/volume] in Serum or Plasma [facility] Urea nitrogen [Mass/volume] in Serum or Plasma [facility] Urine culture [facility] Vascular US carotid artery duplex bilateral Vascular US carotid artery duplex bilateral CV Vascular Ultrasound Routine Dizziness and giddiness 11/10/2024 3:39 PM EST [facility] Work Phone: End: 07-10-2024 XR Abdomen Single view [employer] [facility] Work Phone: Comment on above: Once for 1 Occurrenc es starting 07/10/2024 until 07/10/2024 End: 06-01-2025 XR Chest 2 Views [facility] Work Phone: Comment on above: Once for 1 Occurrenc es starting 06/01/2025 until 06/01/2025 XR Chest PA and Lateral XR CHEST 2V FRONTAL/LAT Radiology Routine Presence of cardiac pacemaker 04/02/2025 9:35 AM EDT [facility] Work Phone: [facility] Immunizations Immunization Date Immunization Notes Care Provider Fa cili 01-19-[address] Adrienne Byers Work Phone: [facility] 10-25-[address] Adrienne Byers Work Phone: [facility] 08-18-2023 Human rabies vaccine from Chicken fibroblast culture JAXON KUHN MD [facility] 08-11-2023 Human rabies vaccine from Chicken fibroblast culture JAXON KUHN MD [facility] 08-07-2023 Human rabies vaccine from Chicken fibroblast culture JAXON KUHN MD [facility] 08-07-2023 rabies vaccine, unspecified formulation JAXON KUHN MD [facility] 08-04-2023 Human rabies vaccine from Chicken fibroblast culture JAXON KUHN MD [facility] 10-27-2021 influenza virus vaccine, unspecified formulation DR LARY BHANDARI DO [facility] 10-27-2021 influenza, injectabl e, quadrivalent, preservative free Dr. Adrienne Byers Work Phone: [facility] 10-27-2021 SARS-CoV-2 (COVID-19 ) mRNA-[address] LARY BHANDARI DO [facility] 02-27-2021 SARS-CoV-2 (COVID-19 ) mRNA-[address] LARY BHANDARI DO [facility] 01-30-2021 SARS-CoV-2 (COVID-19 ) mRNA-[address] LARY BHANDARI DO [facility] Comment on above: Result Comment: 2020: [id number] 11-22-2020 influenza, injectabl e, quadrivalent, preservative free Dr. Adrienne Byers Work Phone: [facility] 11-22-2020 SARS-CoV-2 (COVID-19 ) mRNA-1273 vaccine ADRIENNE BYERS DO [facility] 08-30-2020 influenza, injectabl e, quadrivalent, preservative free; Translations: [Fluarix PF Quadrivalent ] DR LARY BHANDARI DO [place] 08-03-2019 influenza virus vaccine, unspecified formulation DR LARY BHANDARI DO [place] Comment on above: Result Comment: [facility] 08-03-2019 Influenza, high dose seasonal Dr. Marci Nuñez DO Work Phone: [facility] 08-03-2019 influenza, high dose seasonal, preservative-free Dr. Adrienne Byers Work Phone: [facility] 09-09-2018 influenza virus vaccine, unspecified formulation NOREEN HICKS MD [place] 09-09-2018 influenza, injectabl e, quadrivalent, preservative free Dr. Adrienne Byers Work Phone: [facility] 09-03-2017 influenza virus vaccine, unspecified formulation NOREEN HICKS MD [place] 09-03-2017 influenza, injectabl e, quadrivalent, preservative free Dr. Adrienne Byers Work Phone: [facility] 09-18-2016 influenza virus vaccine, unspecified formulation NOREEN HICKS MD [place] 09-18-2016 influenza, injectabl e, quadrivalent, preservative free Dr. Adrienne Byers Work Phone: [facility] 03-11-2015 tetanus toxoid, redu son diphtheria toxoid, and acellular pertussis vaccine, adsorbed DR LARY BHANDARI DO [place] 03-11-2015 zoster vaccine, live DR ÁLVARO BHANDARI DO [place] 09-22-2014 Influenza virus vaccine [facility] Payers Date Payer Category Payer Self-pay [id number] 2022 Medicare (Managed Care) [employer] G [employer] PLUS [id number] 2022 Medicare HMO [id number] 2021 Unknown [employer]M BLUE CARD PPO OOS [id number] 2021-Present [phone] [address] [place] [address] PPO [id number] 2019 Medicare HUMANA MEDICARE HU[employer]NA MEDICARE PPO [id number] 2019-Present [phone] [address] [address] [place] [address] PPO [id number] [id number] 2019 Medicare [id number]. 1.13.159. [id number] 2017 Unknown [id number]. 2.7.3.152075.315 2015 Unknown [id number] 2013 Medicare [id number] 1953 Unknown [id number] 2.840.1.103489.3.579. 2. 1953 Unknown [id number] .840.1.761228.3.579. 2 1953 Unknown [id number] .840.1.642357.3.579. 2 1953 Unknown [id number] 2.16840.1.806151.3.579. 2. 1953 Unknown [id number] 2.16840.1.656900.3.579. 2 1953 Unknown [id number] 2.840.1.086730.3.579. 2. 1953 Unknown [id number] 2.16.840.1.495097.3.579. 2.627 1953 Unknown [id number] 2.16.840.1.517236.3.579. 2. 1953 Unknown [id number] 2.16.840.1.857800.3.579. 2. 1953 Unknown [id number] 2.16.840.1.813776.3.579. 2. 1953 Unknown [id number] 2.16.840.1.167554.3.579. 2. 1953 Unknown [id number] 2.16.840.1.571164.3.579. 2. 1953 Unknown [id number] 2.16.840.1.222859.3.579. 2. 1953 Unknown [id number] 2.16.840.1.795276.3.579. 2. 1953 Unknown [id number] 2.16.840.1.411631.3.579. 2. 1953 Unknown [id number] 2.16.840.1.700269.3.579. 2. 1953 Unknown [id number] 2.16.840.1.493362.3.579. 2. 1953 Unknown [id number] 2.16.840.1.155991.3.579. 2. 1953 Unknown [id number] 2.16.840.1.561999.3.579. 2. 1953 Unknown [id number] 2.16.840.1.150028.3.579. 2.62 Unknown [id number] 2.16.840.1.771368.3.579. 2.462 Unknown [id number] 2.16.840.1.831828.3.579. 2.462 Unknown [id number] 2.16.840.1.743503.3.579. 2.462 Unknown [id number] 2.16.840.1.469291.3.579. 2.462 Unknown [id number] 2.16.840.1.092794.3.579. 2.462 Unknown [id number] 2.16.840.1.158220.3.579. 2.462 Unknown [id number] 2.16.840.1.507134.3.579. 2.462 Unknown [id number] 2.16.840.1.529349.3.579. 2.462 Unknown [id number] 2.16.840.1.350442.3.579. 2.462 Unknown [id number] 2.16.840.1.242275.3.579. 2.462 Unknown [id number] 2.840.1.937038.3.579. 2.462 Unknown [id number] 2.16.840.1.233386.3.579. 2.462 Unknown [id number] 2.840.1.421781.3.579. 2.462 Unknown [id number] 2.16.840.1.814805.3.579. 2.462 Unknown [id number] 2.16.840.1.156660.3.579. 2.462 Unknown [id number] 2.16.840.1.629729.3.579. 2.462 Unknown [id number] 2.16.840.1.650453.3.579. 2.462 Unknown [id number] 2.16.840.1.777879.3.579. 2.462 Unknown [id number] 2.16.840.1.541908.3.579. 2.462 Unknown [id number] 2.16.840.1.898057.3.579. 2.462 Unknown [id number] 2.16840.1.951495.3.579. 2.462 Unknown [id number] 2.16.840.1.909620.3.579. 2.462 Unknown [id number] 2.16.840.1.879765.3.579. 2.462 Unknown [id number] 2.16.840.1.655251.3.579. 2.462 Unknown [id number] 2.16.840.1.224761.3.579. 2.462 Unknown [id number] 2.840.1.057235.3.579. 2.462 Unknown [id number] 2.840.1.142425.3.579. 2.462 Unknown [id number] 2.840.1.487278.3.579. 2.462 Unknown [id number] 2.840.1.537194.3.579. 2.462 Unknown [id number] 2.840.1.315269.3.579. 2.462 Unknown [id number] 2.840.1.483100.3.579. 2.462 Unknown [id number] 2.840.1.532360.3.579. 2.462 Unknown [id number] 2.840.1.028971.3.579. 2.462 Unknown [id number] 2.840.1.006507.3.579. 2.462 Unknown [id number] 2.840.1.125985.3.579. 2.462 Unknown [id number] 2.840.1.943876.3.579. 2.462 Unknown [id number] 2.16840.1.520609.3.579. 2.462 Unknown [id number] 2.16840.1.740400.3.579. 2.462 Unknown [id number] 2.840.1.093040.3.579. 2.462 Unknown [id number] 2.16.840.1.773375.3.579. 2.462 Unknown [id number] 2.16.840.1.710545.3.579. 2.462 Unknown [id number] 2.16.840.1.343807.3.579. 2.462 Unknown [id number] 2.16.840.1.149201.3.579. 2.462 Unknown [id number] 2.16.840.1.121237.3.579. 2.462 Unknown [id number] 2.16.840.1.664873.3.579. 2.462 Unknown [id number] 2.840.1.907845.3.579. 2.462 Unknown [id number] 2.840.1.590115.3.579. 2.462 Unknown [id number] 2.840.1.392724.3.579. 2.462 Unknown [id number] 2.840.1.138132.3.579. 2.462 Unknown [id number] 2.840.1.640189.3.579. 2.462 Unknown [id number] 2.840.1.406931.3.579. 2.462 Unknown [id number] 2.840.1.744358.3.579. 2.462 Unknown [id number] 2.840.1.300619.3.579. 2.462 Unknown [id number] 2.840.1.095581.3.579. 2.462 Unknown [id number] 2.16840.1.429231.3.579. 2.462 Unknown [id number] 2.16.840.1.895679.3.579. 2.462 Unknown [id number] 2.16.840.1.368091.3.579. 2.462 Unknown [id number] 2.840.1.856451.3.579. 2.462 Unknown [id number] 2.16840.1.790942.3.579. 2.462 Unknown [id number] 2.16840.1.721894.3.579. 2.462 Unknown [id number] 2.16840.1.458665.3.579. 2.462 Unknown [id number] 2.0.1.393661.3.579. 2.462 Social History Date Type Detail Facility Start: 10-04-2020 End: 02-27-2025 Ex-smoker (finding) [place] Start: 1955 Sex Assigned At Female A [facility] Start: 12-23-1963 End: 12-23-2008 History of tobacco use Current smoker [facility] Start: 12-23-1963 End: 12-23-2008 History of tobacco use Cigarette Smoker [facility] Start: 07-10-2021 End: 02-27-2025 Alcohol intake Current non-drinker of alcohol (finding) [facility] Start: 05-25-2022 End: 05-12-2023 Exposure to SARS-CoV-2 (event) Not sure [facility] Start: 07-10-2021 End: 05-12-2023 Cigarettes smoked current (pack per day) - Reported 1.5 [facility] Start: 07-10-2021 End: 02-27-2025 Tobacco use and exposure Smokeless tobacco non-user [facility] Start: 05-12-2023 End: 06-06-2025 Tobacco use panel [facility] Adult Depression Screening Assessment 3 [facility] Start: 10-23-2021 Gender identity Identifies as female gender (finding) [facility] Start: 10-23-2021 Sexual orientation Heterosexual (fin lana) [facility] Start: 09-28-2023 End: 02-29-2024 Tobacco smoking status NHIS Unknown if ever smoked [facility] Start: 11-18-2014 None [facility] Start: 11-18-2014 Spouse/ Signif icant Other [facility] Start: 11-18-2014 Non-smoker [facility] Start: 10-01-2023 Cigarettes [place] [facility] Start: 1955 Sex assigned at Not on file [facility] Start: 06-16-2024 End: 03-10-2025 Sex Female (finding) [facility] NEGATED: Highlighted row [facility] NEGATED: Highlighted row [facility] Medical Equipment Procedure Code Equipment Code Equipment Origin al Text Equipment Identifier Dates [employer] G247 FDA Start: 05-12-2022 [employer] G247 FDA Start: 05-12-2022 [employer] G247 FDA Start: 05-12-2022 [employer] G247 FDA Start: 05-12-2022 [employer] G247 FDA Start: 05-12-2022 [employer] G247 FDA Start: 05-12-2022 [employer] G247 FDA Start: 05-12-2022 [employer] G247 FDA Start: 05-12-2022 [employer] G247 FDA Start: 05-12-2022 Icd-05/12/2022 [id number] Start: 05-12-2022 Comment on above: Description: [facility] G24 7 RA [id number] RV [id number] LV [id number] [employer] G247 FDA Start: 05-12-2022 [employer] G247 FDA Start: 05-12-2022 [id number] Start: 05-12-2022 [id number] Start : 05-12-2022 [id number] Start : 05-12-2022 [employer] G247 FDA Start: 05-12-2022 [employer] G247 FDA Start: 05-12-2022 FDA Start: 05-12-2022 [employer] G247 FDA Start: 05-12-2022 [employer] G247 FDA Start: 05-12-2022 [employer] G247 FDA Start: 05-12-2022 [employer] G247 FDA Start: 05-12-2022 FDA Start: 05-12-2022 [employer] G247 FDA Start: 05-12-2022 [employer] G247 FDA Start: 05-12-2022 FDA Start: 05-12-2022 FDA Start: 05-12-2022 Goals Date Patient Goal Desired Activity /State Functional Status Date Assessment Result Facility 06-11-2025 Functional status Bedrest [facility] Work Phone: 05-03-2025 Functional status Ambulates;Jose r;Bedside Commode [facility] Work Phone: 04-26-2025 Functional status Bedrest [facility] Work Phone: 04-25-2025 Functional status With Assist of 1 [facility] Work Phone: 04-20-2025 Functional status Ambulates;Bath room Privilege [facility] Work Phone: 04-19-2025 Functional status Standard Walker [facility] Work Phone: 03-15-2024 Functional status Ambulates;Up ad ann marie [facility] Work Phone: 02-29-2024 Functional status Chair [facility] Work Phone: 10-28-2023 Functional Status flight to bed Katie bakercarmel [facility] 10-12-2023 Functional status Activity Abili ty Standby Assist [facility] Work Phone: 10-11-2023 Functional status Ambulates [facility] Work Phone: 10-07-2023 Functional status Ambulates [facility] Work Phone: 10-06-2023 Functional status Rolling Walker [facility] Work Phone: 10-01-2023 Functional status Ambulates [facility] Work Phone: 08-11-2023 Functional Status Room check performed [facility] 08-04-2023 Functional Status Standard Safet y ID band on, Call device within reach, Bed in low position, Wheels locked, Upper/Half-Length side-rails up, Bedside Cart Locked, Safety level maintained [facility] 08-20-2022 Functional Status Minimum assistance [facility] 08-19-2022 Functional Status 20 [place] [facility] 08-19-2022 Functional Status Standard Safet y ID band on, Call device within reach, Bed in low position, Wheels locked, Upper/Half-Length side-rails up, Phone within reach, personal items within reach, Visitor at bedside, Safety level maintained [place] 05-22-2022 Functional Status Resting [facility] 04-26-2022 Functional Status Independent [facility] 04-03-2022 Functional Status [facility] 04-03-2022 Functional Status [facility] 04-02-2022 Functional Status [facility] 04-02-2022 Functional Status [facility] 02-05-2015 Are you deaf, or do you have serious difficulty hearing No 02/05/2015 4:06 PM Armida Lowe LPN No [facility] 02-05-2015 Are you blind, or do you have serious difficulty seeing, even when wearing glasses No 02/05/2015 4:06 PM Armida Lowe LPN No [facility] 02-05-2015 Do you have serious difficulty walking or climbing stairs No 02/05/2015 4:06 PM Armida Lowe LPN No [facility] 02-05-2015 Do you have difficul ty dressing or bathing No 02/05/2015 4:06 PM Armida Lowe LPN No [facility] 02-05-2015 Because of a physica l, mental, or emotional condition, do you have difficulty doing errands alone such as visiting a physician's office or shopping No 02/05/2015 4:06 PM EDT Armida Ballard LPN No [facility] Mental Status Date Assessment Result Facility 06-11-2025 Cognitive function Voice/Name [facility] Work Phone: 05-03-2025 Cognitive function Voice/Name [facility] Work Phone: 04-25-2025 Cognitive function Voice/Name;Touch/Shaki ng [facility] Work Phone: 04-20-2025 Cognitive function Voice/Name [facility] Work Phone: 04-19-2025 Cognitive function Level Of Cons ciousness Awake;Alert;Follows Commands [facility] Work Phone: 03-15-2024 Cognitive function Voice/Name [facility] Work Phone: 03-13-2024 Cognitive function Cooperative [facility] Work Phone: 02-29-2024 Cognitive function Voice/Name [facility] Work Phone: 10-12-2023 Cognitive function Voice/Name [facility] Work Phone: 10-07-2023 Cognitive function Voice/Name [facility] Work Phone: 10-06-2023 Cognitive function Voice/Name [facility] Work Phone: 10-01-2023 Cognitive function Voice/Name [facility] Work Phone: 09-28-2023 Cognitive function Voice/Name [facility] Work Phone: 08-04-2023 Mental Status Orientation Oriented x 4 [facility] 08-20-2022 Mental Status Orientation Oriented x 4 [facility] 08-19-2022 Mental Status [facility] 05-22-2022 Mental Status Oriented x 4 [facility] 04-25-2022 Mental Status Oriented x 4 [facility] 04-03-2022 Mental Status [facility] 04-02-2022 Mental Status [facility] 02-05-2015 Because of a physica l, mental, or emotional condition, do you have serious difficulty concentrating, remembering, or making decisions No 02/05/2015 4:06 PM EDT Armida Ballard LPN No [facility] Clinical Notes 02-21-2015 to 06-29-2025 Michel Ibrahim - 06/19/2025 11:08 AM EDTTelephone Encounter - Dannie Barros RN - 06/16/2025 4:11 PM EDTTelephone Encounter - Dannie Barros RN - 06/16/2025 4:11 PM EDT Note Date & Type Note Facility 06-29-2025 Note HNO ID: [id number] Author: CECILIA OWENS APRN.MONITOR WORKER Service: ? Author Type: Nurse Practitioner Type: Progress Notes Filed: 06/29/2025 16:44 Note Text: [facility] - FOLLOW UP EVALUATION Primary Movement Disorders Neurologist: Leyla Tse MD Primary Movement Disorders RICARDO: Marci Nuñez DO [address] [facility] [address] Dear Marci Nuñez DO: I had the pleasure of seeing Ms. Caro for follow-up today. As you know she is a 70 year old right-handed female with a history of left hand tremor since 2021. She is seen with her . Subjective Previous Plan- 02/27/2025 Visit: - Start taking Ingrezza 40 mg daily for mouth movements; prescription sent to [facility]. Once this is controlled we can start working on the tremors. - Continue other current medications as discussed. - Undergo a brain MRI; scheduling will be coordinated to accommodate your cardiac implant. - Monitor for any changes in symptoms or side effects from new medication and report them. Interval History: Patients provides majority of history today. She was in the hospital in [place] for pneumonia in February. Looking into long covid. Has appt with specialist upcoming. Tried Austedo XR 6 mg for a couple months and did not notice any improvement in mouth movements so stopped it last month. Mouth movements are present particularly when talking. Not constant mouth movements. Tremor in the left arm postural and action>rest. Difficulty doing bra clasp. Otherwise able to dress herself. Able to feed herself but does notice tremor with drinking and eating. Interested in non medication treatments for tremor. Reviewed focused ultrasound as potential surgical option. Patient had confusion on finger to nose task, difficult understanding what she was being asked to do. reports that she is more confused in the morning. Takes Trazodone at night and Clonazepam (he reduced dose from 1 mg to 0.5mg) which he wonders if this is causing confusion and tiredness in the am. Psychiatry is prescribing. Movement Disorders Medications Schedule - as of [...] Yes (mild) Tremors/Gait/Balance Shaking or tremors: Yes (mild) Walking and balance problems: Yes (moderate) Number of falls in the Last Month: 0 Gait freezing: Yes (moderate) Autonomic/Pain Lightheadeness on standing: Yes (moderate) Urinary problems: Yes (slight) Constipation problems: Yes (mild) Pain and other sensations: Yes (severe) Speech/Swallowing Speech problems: Yes (mild) Droolin (none) Chewing and swallowing problems: Yes (mild) Sleep/Fatigue Sleep problems: Yes (slight) Daytime sleepiness: Yes (mild) Fatigue: Yes (moderate) Mood/Behavior Depression: Anxiety: Finally, the following table shows the patient's overall global physical and mental health using the PROMIS scale: PROMIS-10 Flowsheet Row Office Visit from 06/29/2025 in Neurology Appointment from 06/07/2025 in Neurology Global Physical Health T Score 26.7 29.6 Global Mental Health T Score 21.2 28.4 0-10 Standard Pain Scale 2 3 *PROMIS-10 [...] HERVE MARIN Current Outpatient Medications Medication Sig ondansetron orally disintegrating (ZOFRAN ODT) 4 mg disintegrating tablet Take 4 mg by mouth as needed for nausea/vomiting. albuterol sulfate 90 mcg/actuation aebs oxyCODONE-acetaminophen (PERCOCET) 5-325 mg tablet 1 TABLET ORAL EVERY 6 HOURS NEEDED FOR SEVERE PAIN 30 DAYS lamoTRIgine (LAMICTAL) 100 mg tablet Take 100 mg by mouth once daily. polyethylene glycol 3350 (MIRALAX) 17 gram/dose powder ferrous sulfate (IRON) 325 mg (65 mg iron) tablet Take 325 mg by mouth once daily. baclofen 5 mg tablet 1 tab po qid. Do not abruptly stop if at high dose, risk for withdrawal seizures. clonazePAM (KLONOPIN) 1 mg tablet Take 0.5 mg by mouth daily at bedtime. furosemide (LASIX) 20 mg tablet as needed. traZODone (DESYREL) 50 mg tablet Take 50 mg by mouth once daily. BABY ASPIRIN ORAL Take 81 mg by mouth every other day. pantoprazole DR (PROTONIX) 40 mg tablet Take 1 tablet by mouth twice daily. (Patient taking d (more content not included)... [facility] 06-19-2025 History of Presen t illness Narrative Discontinuation Assessment completed for the medication Austedo XR. Patient no longer requires [facility] Patient Management Program Services at this time for this medication. Michel Ibrahim CPhT Neurology, Cardiology & Infectious Disease [facility] documented in this encounter [facility] 06-19-2025 Note HNO ID: [id number] Author: ?, ?, ? Service: ? Author Type: ? Type: Progress Notes Filed: 06/19/2025 11:11 Note Text: Discontinuation Assessment completed for the medication Austedo XR. Patient no longer requires [facility] Patient Management Program Services at this time for this medication. Michel Ibrahim CPhT Neurology, Cardiology AND Infectious Disease [facility] 06-16-2025 Telephone encount er Note S: Patient's home health Katlyn [facility] today, reporting abdominal pain on the patient's behalf. B: Caller states that symptom is chronic for patient, going on for the last several weeks. Patient is absent for call. A: Caller reporting patient reported 7/10 abdominal pain, which is reported as a chronic issue. Caller reports assessment is otherwise normal, vital signs within normal limits. Taking Oxycodone for pain, which resolves pain. R: Caller states she is required to report pain above a certain threshold to providers, denies acute issue. Advised that message would be sent for provider review. Caller verbalizes understanding, and denies any other needs or concerns at this time. Reason for Disposition Abdominal pain is a chronic symptom (recurrent or ongoing AND present > 4 weeks) Protocols used: Abdominal Pain - ADULT- [facility] 06-16-2025 Miscellaneous Notes Formattin g of this note might be different from the original. S: Patient's home phani Potts called [facility] today, reporting abdominal pain on the patient's behalf. B: Caller states that symptom is chronic for patient, going on for the last several weeks. Patient is absent for call. A: Caller reporting patient reported 7/10 abdominal pain, which is reported as a chronic issue. Caller reports assessment is otherwise normal, vital signs within normal limits. Taking Oxycodone for pain, which resolves pain. R: Caller states she is required to report pain above a certain threshold to providers, denies acute issue. Advised that message would be sent for provider review. Caller verbalizes understanding, and denies any other needs or concerns at this time. Reason for Disposition Abdominal pain is a chronic symptom (recurrent or ongoing AND present > 4 weeks) Protocols used: Abdominal Pain - ADULT-[facility] documented in this encounter [facility] 06-11-2025 Discharge summary Note Date/Time June 11, 2025 12:08pm [facility] Medical Records Department [address] [place] [id number] Discharge Summary 06/11/25 1206 MR#: [id number] Acct: [id number] Name: MANSI CARO Rep #:[id number] : 1955 70 From: Ganesh Amaya PCP: Marci Nuñez DO Status:ADM I N [place] [facility] [id number] Providers Date of Admission: 06/02/25 Date of Discharge: 06/11/25 Primary Care Physician: Dr. Marci Nuñez DO Consultations 06/06/25 13:36 Consult: Gastroenterology Routine Consulting Provider: Shna Lockett Reason for Consult: N/V, Duodenal stenosis, last EGD EMERGENT Consult: No MD Notified: Yes Date Notified: 06/06/25 Time Notified: 13:37 Method of Notification: Text Reason For Visit: PNEUMONIA, HYPOXIA Diagnosis Discharge Diagnosis (1) Pneumonia: Status: Inactive Code(s): J18.9 - Pneumonia, unspecified organism (2) Dyspnea: Status: Inactive Code(s): R06.00 - Dyspnea, unspecified Plan 70-year-old female admitted for shortness of breath and abdominal pain. Her pulse ox was 82% on room air at home. No chest pain. CTA was negative for PE but found to have pneumonia. She has mild chronic cough. 1. Bilateral community-acquired pneumonia-patient's chest CTA shows groundglassappearance into the areas of the right middle and lower lobes and left lower lobe tree-in-bud opacity compatible with pneumonitis/pneumonia. Patient told methat she has chronic cough for long time but no fever or chills. Patient had 5 days of antibiotics while here discharged on 2 more days of levofloxacin. Advised to follow-up in pulmonary clinic for PFT. 06/06: Patient's further said she had outside PFT in [place] by fish net maker. 06/07: On levofloxacin. 06/09: Discontinue levofloxacin. Had 5 days of levofloxacin. EGD 04/25/2025 Impression: - Normal esophagus. - No gross lesions in the entire stomach. - Acquired duodenal stenosis. Biopsied. Colonoscopy Impression: - Localized moderate inflammation was found in the rectum secondary to colitis. Biopsied. 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 Biopsied. - Diverticulosis in the recto-sigmoid colon, in the sigmoid colon, in the transverse colon and in the ascending colon. - The examined portion of the ileum was normal. GI consulted. 06/07: EGD was done today. Advance diet as per tolerated Impression: - Normal esophagus. - Gastroparesis. - Acquired duodenal stenosis. Dilated. - No specimens collected. 06/08: Nausea and vomiting has almost resolved. Reglan as needed. 06/09: Tolerating diet well. Chronic IBS 06/10 discussed about the diet. Avoid hard and chewy food. 06/11: Patient was able to tolerate the food. Follow-up in GI office. She completed the antibiotic Levaquin on 06/09 #2. Elevated beta natruretic peptide-possible mild congestive heart failure-blood pressure on lower side therefore furosemide was stopped while here. # 3. Hypoxia due to bilateral pneumonia: Hypoxia has resolved. Home oxygen qualification test ordered 06/11 currently she is 98% on room air. Home oxygen qualification test ordered #4 Type 2 diabetes-patient on 1800-calorie diet, continue home metformin #5 cerebral palsy-complicates care, management, recovery, and prognosis #6 chronic abdominal pain/irritable bowel syndrome/history of ischemic colitis, chronic problem: Patient follows Dr. Lockett in GI office. Celiac test ordered at time of admission is still pending. Follow-up in GI office Persistent nausea and vomiting. 06/08: Celiac test negative and reported normal IgA and normal distal transglutaminase IgA. #7 chronic anxiety/depression-patient will remain on her outpatient medications. 7/18: Physical deconditioning/low motivation for moving out of the bed: Discussed with the patient, correctional casework specialist. Continue PT and OT 06/10 : She requested Lexapro to be put on. 06/11. She is doing good with the Lexapro which was resumed yesterday Discharge plan: Patient has stated that that he wanted to go to rehab. Discharge medication reconciliation done. Discharge follow-up instructions completed. Discharge process discussed with the patient and all questions wereanswered to patient's satisfaction. Follow with PCP in 1 to 2 weeks Total time spent, exact 35 minutes on discharge meds reconciliation, examination, coordination of care with nurses and ancillary staff, review of imaging and blood test and discussion with the patient on follow-up instructions. Microbiology Past 72 Hours 06/02/25 13:40 Blood Culture (Wb) - Right Hand Blood Culture - Preliminary No growth in 48 hours. 06/02/25 13:42 Blood Culture (Wb) - Anticubital Right Blood Culture - Preliminary No growth in 48 hours. Laboratory Results 06/07/25 11:12: POC Glucose 101 Medications at Discharge Home Medications clonazepam 1 mg tablet 1 mg PO QHS anxiety 11/18/14 trazodone 50 mg tablet 50 mg PO DAILY Anxiety 11/18/14 aspirin 81 mg tablet,delayed release 81 mg PO .COMPLEX heart 10/01/23 rosuvastatin 20 mg tablet 20 mg PO QHS cholesterol 02/21/24 furosemide 20 mg tablet 20 mg PO QDAY PRN for 2lb weight gain 06/13/24 escitalopram oxalate 5 mg tablet 5 mg PO QDAY Mood 11/28/24 polyethylene glycol 3350 17 gram/dose oral powder (Miralax) 17 g PO DAILY Constipation 11/28/24 lamotrigine 100 mg tablet 100 mg PO QDAY Anxiety 01/23/25 ferrous sulfate 325 mg (65 mg iron) tablet (Feosol) 325 mg PO QDAY Supplement 02/13/25 linaclotide 145 mcg capsule (Linzess) 145 mcg PO QAM Constipation #60 caps 02/14/25 deutetrabenazine 6 mg tablet,extended release 24 hr (Austedo XR) 6 mg PO DAILY involuntary Movements 04/19/25 oxycodone 5 mg tablet 5 mg PO Q6H PRN PRN Pain Score 6-10 7 days #28 tabs 04/30/25 pantoprazole 40 mg tablet,delayed release 40 mg PO DAILY 30 days #30 tabs 04/30/25 baclofen 5 mg tablet 5 mg PO DAILY SPASCITY 05/29/25 docusate sodium 100 mg capsule 100 mg PO DAILY CONSTIPATION 05/29/25 metformin 500 mg tablet 500 mg PO BID Diabetes 05/29/25 ondansetron 4 mg disintegrating tablet 4 mg PO Q8H #30 tabs 05/30/25 phenazopyridine 100 mg tablet 100 mg PO TID PRN PRN pain 06/02/25 hyoscyamine sulfate 0.125 mg tablet 0.125 mg PO TID PRN dyspepsia #90 tabs 06/04/25 lisinopril 10 mg tablet 5 mg (1/2 x 10 mg) PO DAILY #30 tabs 06/11/25 Physical Exam Narrative Seen and examined. Patient is doing well. Insurance company did not approve for [facility]. Patient has been agreed for home discharge. Discussed with the correctional casework specialistqa manager exam General: Alert, Oriented x3, Cooperative HEENT: Atraumatic, PERRLA, EOMI, Normocephalic. Oral: No Gingival or Mucosal Lesions/ Ulcerations Neck: Supple, No JVD, Negative Carotid Bruits Chest wall/Lungs: Air entry diminished in bilateral lung bases. No crepitation/rhonchi Cardiovascular: Regular rate and rhythm, Normal S1,S2, No M/G/R Abdomen: Bowel Sounds Present, Soft, Non Tender, Non-Distended. : No dysuria. No renal angle tenderness. No suprapubic tenderness. Extremities: No edema, Capillary Refill Less than 3 Seconds Skin: No rashes, No breakdown Musculoskeletal: No Tenderness to Palpation of Joints or Extremities Neurological: Cranial nerves II-XII grossly intact, DTR 2+/4. No acute focal neurological deficit. Psych/Mental Status: Flat affect, mild depression. Weight / BMI Weight Weight: 128 lb 4.944 oz Body Mass Index (BMI) 19.5 ABG / Lab / Microbiology Data 06/11/25 07:17 06/11/25 07:17 Laboratory: Laboratory Results - last 24 hr 06/11/25 07:17: WBC 3.8 L, RBC 3.26 L, Hgb 9.8 L, Hct 31.4 L, MCV 96.3, MCH 30.1, MCHC 31.2 L, RDW Std Deviation 48.7 H, RDW Coeff of Edita 13.6, Plt Count 186, MPV 10.1, Immature Gran % (Auto) 0.300, Neut % (Auto) 60.0, Lymph % (Auto) 23.2, [place] % (Auto) 11.5 H, Eos % (Auto) 4.7, Baso % (Auto) 0.3, Absolute Neuts (auto) 2.3, Absolute Lymphs (auto) 0.89, Nucleated RBC % 0, Sodium 140, Potassium 4.0, Chloride 106, Carbon Dioxide 25.8, Anion Gap 8, BUN 13, Creatinine 0.97, Estim Creat Clear Calc 48.17 L, Est GFR (MDRD) Non-Af 62, BUN/Creatinine Ratio 13.8, Glucose 126 H, Calcium 8.5 Microbiology: Microbiology 06/02/25 13:40 Blood Culture (Wb) - Right Hand Blood Culture - Final No growth in 5 days. 06/02/25 13:42 Blood Culture (Wb) - Anticubital Right Blood Culture - Final No growth in 5 days. 06/02/25 14:13 Mucosa - Nasopharyngeal Respiratory Panel (PCR) - Final 06/02/25 13:03 Mucosa - Nose SARS-CoV-2, Influenza & RSV (PCR) - Final D/C Instructions Weight Bearing Status: Weight bearing as tolerated Call your doctor if you observe: Fever of 101 or Higher, Coldness, Increased Pain, Numbness or Tingling, Change in Color, Inability to urinate, Inability to have a bowel movement, Shortness of breath, Dizziness, Fainting spells, Swellingin the ankles, Chest pain, Prolonged hiccupping, Increased palpitations (irregular heartbeat) and Calf discomfort DC O2, CPAP, BIPAP Needs Home O2 Discharge instructions: No When: IN 2 WEEKS Meaningful Use Info Meaningful Use Meaningful Use Diagnoses (Choose all that apply): None applicable Discharge Plan Admission Admit Date/Time: 06/02/25 13:36 Primary Reason for Your Visit: Community-acquired pneumonia Attending Provider: Ganesh Kiran Primary Care Provider: Marci Nuñez Consulting Providers: Ben Johnson; Friend,Shan Discharge Orders/Prescriptions Prescriptions: New lisinopril 10 mg Tablet 5 mg PO DAILY Qty: 30 0RF Rx Instructions: Hold for SBP less than 130 mmHg Continued furosemide 20 mg tablet 20 mg PO QDAY PRN (Reason: for 2lb weight gain) metformin 500 mg tablet 500 mg PO BID lamotrigine 100 mg tablet 100 mg PO QDAY escitalopram oxalate 5 mg tablet 5 mg PO QDAY polyethylene glycol 3350 [Miralax] 17 gram/dose powder 17 g PO DAILY docusate sodium 100 mg capsule 100 mg PO DAILY Patient Comments: stopped 05/30/25 baclofen 5 mg tablet 5 mg PO DAILY Patient Comments: PRESCRIPTION FOR 4 TIMES DAILY ferrous sulfate [Feosol] 325 mg (65 mg iron) tablet 325 mg PO QDAY Linzess 145 mcg capsule 145 mcg PO QAM Qty: 60 2RF Patient Comments: stopped 05/30/25 ondansetron 4 mg tablet,disintegrating 4 mg PO Q8H Qty: 30 3RF trazodone 50 MG tablet 50 mg PO DAILY clonazepam 1 MG tablet 1 mg PO QHS aspirin 81 mg tablet,delayed release (DR/EC) 81 [...] release 24 hr 6 mg PO DAILY Patient Comments: stopped 06/02/25 phenazopyridine 100 mg tablet 100 mg PO TID PRN PRN (Reason: pain) hyoscyamine sulfate 0.125 mg tablet 0.125 mg PO TID PRN (Reason: dyspepsia) Qty: 90 2RF Referrals / Follow Up: Marci Nuñez DO [Primary Care Provider] - Shan Lockett DO [Med Staff - Active Staff] - Within 1 Month Lluvia Kilpatrick NP-C [Med Staff - Adv Practice Prof] - Within 1 Month (For COPD evaluation) Disposition Disposition (needs filled in before D/C Order can be placed): Home Health Service Charges/Coding Visit Charges Inpatient E&M: 66675 Disch Hosp >30min 06/11/25 1208 <Electronically signed by Ganesh Kiran MD> Cosigner Signature (if applicable): CC: Dr. Ganesh Kiran MD; Marci Nuñez DO~ Signed [facility] Work Phone: 1(282) 618-632407-21-2025 Discharge summary Author Ganesh Kiran [facility] Note Date/Time June 11, 2025 12:0 5pm [facility] Medical Records Department [address] [place] [address] Instructions for Home/Discharge Instructions 06/11/25 1001 MR#: [id number] Acct: [id number] Name: MANSI CARO Rep #:[id number] : 1955 70 From: Ganesh Amaya PCP: Marci Nuñez DO Status:ADM I N Discharge Instructions DC O2, CPAP, BIPAP needs Home O2 Discharge instructions: No Dressing / Incision Weight Bearing Status: Weight bearing as tolerated Dressing / Incision Call your doctor if you observe: Fever of 101 or Higher, Coldness, Increased Pain, Numbness or Tingling, Change in Color, Inability to urinate, Inability to have a bowel movement, Shortness of breath, Dizziness, Fainting spells, Swellingin the ankles, Chest pain, Prolonged hiccupping, Increased palpitations (irregular heartbeat) and Calf discomfort Follow Up Care Test Results: Test results from this visit will be discussed in further detail at your follow- up appointment, if applicable. Discharge Plan Admission Admit Date/Time: 06/02/25 13:36 Primary Reason for Your Visit: Community-acquired pneumonia Attending Provider: Ganesh Kiran Primary Care Provider: Marci Nuñez Consulting Providers: Ben Johnson; Shan Lockett Discharge Orders/Prescriptions Prescriptions: New lisinopril 10 mg Tablet 5 mg PO DAILY Qty: 30 0RF Rx Instructions: Hold for SBP less than 130 mmHg Continued furosemide 20 mg tablet 20 mg PO QDAY PRN (Reason: for 2lb weight gain) metformin 500 mg tablet 500 mg PO BID lamotrigine 100 mg tablet 100 mg PO QDAY escitalopram oxalate 5 mg tablet 5 mg PO QDAY polyethylene glycol 3350 [Miralax] 17 gram/dose powder 17 g PO DAILY docusate sodium 100 mg capsule 100 mg PO DAILY Patient Comments: stopped 05/30/25 baclofen 5 mg tablet 5 mg PO DAILY Patient Comments: PRESCRIPTION FOR 4 TIMES DAILY ferrous sulfate [Feosol] 325 mg (65 mg iron) tablet 325 mg PO QDAY Linzess 145 mcg capsule 145 mcg PO QAM Qty: 60 2RF Patient Comments: stopped 05/30/25 ondansetron 4 mg tablet,disintegrating 4 mg PO Q8H Qty: 30 3RF trazodone 50 MG tablet 50 mg PO DAILY clonazepam 1 MG tablet 1 mg PO QHS aspirin 81 mg tablet,delayed release (DR/EC) 81 [...] release 24 hr 6 mg PO DAILY Patient Comments: stopped 06/02/25 phenazopyridine 100 mg tablet 100 mg PO TID PRN PRN (Reason: pain) hyoscyamine sulfate 0.125 mg tablet 0.125 mg PO TID PRN (Reason: dyspepsia) Qty: 90 2RF Referrals / Follow Up: Marci Nuñez DO [Primary Care Provider] - Lluvia Kilpatrick NP-C [Med Staff - Adv Practice Prof] - Within 1 Month (For COPD evaluation) Shan Lockett DO [Med Staff - Active Staff] - Within 1 Month Disposition Disposition (needs filled in before D/C Order can be placed): Home Health Service 06/11/25 1205<Electronically signed by Ganesh Kiran MD>Ganesh Kiran MD CC: Dr. Ben Johnson DO; Marci Nuñez DO; Shan Lockett DO ~ Signed [facility] Work Phone: 1(609) 200-403907-21-2025 Hospital Discharge instructionsAdditional Instructions Date of Discharge: 06/11/25[facility] Work Phone: 1(465) 335-302807-21-[address] [facility]07-20-2025 Progress note Author Ganesh Kiran [facility] Note Date/Time June 10, 2025 3:45 pm [facility] Medical Records Department [address] [place] [address] Progress Note - Hospitalist 06/10/25 1544 MR#: [id number] Acct: [id number] Name: MANSI CARO Rep #:[id number] : 1955 70 From: Ganesh Amaya PCP: Marci Nuñez DO Status:ADM I N Location: [place] [address] Objective Data Objective Data Vital Signs: Vital Signs Temp Pulse Resp BP Pulse Ox O2 Del Method O2 Flow Rate 99.0 F 80 18 93/45 L 99 Nasal Cannula 2 06/10/25 14:27 06/10/25 14:27 06/10/25 14:27 06/10/25 14:27 06/10/25 15:10 06/10/25 15:10 06/10/25 15:10 Oxygen Flow Rate (L/min) 2 Oxygen Delivery Method Nasal Cannula Weight: 128 lb 4.944 oz Body Mass Index (BMI) 19.5 Intake & Output: Intake and Output for Last 24 Hours 06/08/25 06/09/25 06/10/25 23:59 23:59 23:59 Intake Total 700 / 700 350 / 350 Balance 700 / 700 350 / 350 Lab / Micro Data 06/08/25 05:15 06/08/25 05:15 Micro: Microbiology 06/02/25 13:40 Blood Culture (Wb) - Right Hand Blood Culture - Final No growth in 5 days. 06/02/25 13:42 Blood Culture (Wb) - Anticubital Right Blood Culture - Final No growth in 5 days. 06/02/25 14:13 Mucosa - Nasopharyngeal Respiratory Panel (PCR) - Final 06/02/25 13:03 Mucosa - Nose SARS-CoV-2, Influenza & RSV (PCR) - Final Physical Exam Narrative Seen and examined. Patient is doing well. Sometimes she has abdominal cramp after eating food. Nonausea or vomiting. requested to put back on Klonopin. Patient stated she moved out of the bed Hypoxia has resolved. No fever. Nausea and vomiting had improved. Continue Reglan as needed Physical exam General: Alert, Oriented x3, Cooperative HEENT: Atraumatic, PERRLA, EOMI, Normocephalic. Oral: No Gingival or Mucosal Lesions/ Ulcerations Neck: Supple, No JVD, Negative Carotid Bruits Chest wall/Lungs: Air entry diminished in bilateral lung bases. No crepitation/rhonchi Cardiovascular: Regular rate and rhythm, Normal S1,S2, No M/G/R Abdomen: Bowel Sounds Present, Soft, Non Tender, Non-Distended. : No dysuria. No renal angle tenderness. No suprapubic tenderness. Extremities: No edema, Capillary Refill Less than 3 Seconds Skin: No rashes, No breakdown Musculoskeletal: No Tenderness to Palpation of Joints or Extremities Neurological: Cranial nerves II-XII grossly intact, DTR 2+/4. No acute focal neurological deficit. Psych/Mental Status: Flat affect, mild depression. Assessment & Plan Assessment/Plan (1) Pneumonia: (2) Dyspnea: PLAN: Plan 70-year-old female admitted for shortness of breath and abdominal pain. Her pulse ox was 82% on room air at home. No chest pain. CTA was negative for PE but found to have pneumonia. She has mild chronic cough. 1. Bilateral community-acquired pneumonia-patient's chest CTA shows groundglassappearance into the areas of the right middle and lower lobes and left lower lobe tree-in-bud opacity compatible with pneumonitis/pneumonia. Patient told methat she has chronic cough for long time but no fever or chills. Patient had 5 days of antibiotics while here discharged on 2 more days of levofloxacin. Advised to follow-up in pulmonary clinic for PFT. 06/06: Patient's further said she had outside PFT in [place] by fish net maker. 06/07: On levofloxacin. 06/09: Discontinue levofloxacin. Had 5 days of levofloxacin. EGD 04/25/2025 Impression: - Normal esophagus. - No gross lesions in the entire stomach. - Acquired duodenal stenosis. Biopsied. Colonoscopy Impression: - Localized moderate inflammation was found in the rectum secondary to colitis. Biopsied. 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 Biopsied. - Diverticulosis in the recto-sigmoid colon, in the sigmoid colon, in the transverse colon and in the ascending colon. - The examined portion of the ileum was normal. GI consulted. 06/07: EGD was done today. Advance diet as per tolerated Impression: - Normal esophagus. - Gastroparesis. - Acquired duodenal stenosis. Dilated. - No specimens collected. 06/08: Nausea and vomiting has almost resolved. Reglan as needed. 06/09: Tolerating diet well. Chronic IBS 06/10 discussed about the diet. Avoid hard and chewy food. #2. Elevated beta natruretic peptide-possible mild congestive heart failure- blood pressure on lower side therefore furosemide was stopped while here. # 3. Hypoxia due to bilateral pneumonia: Hypoxia has resolved. Home oxygen qualification test ordered #4 Type 2 diabetes-patient on 1800-calorie diet, continue home metformin #5 cerebral palsy-complicates care, management, recovery, and prognosis #6 chronic abdominal pain/irritable bowel syndrome/history of ischemic colitis, chronic problem: Patient follows Dr. Lockett in GI office. Celiac test ordered at time of admission is still pending. Follow-up in GI office Persistent nausea and vomiting. 06/08: Celiac test negative and reported normal IgA and normal distal transglutaminase IgA. #7 chronic anxiety/depression-patient will remain on her outpatient medications. 06/08: Physical deconditioning/low motivation for moving out of the bed: Discussed with the patient, correctional casework specialist. Continue PT and OT 06/10 close he requested Lexapro to be put on. Discharge plan: Patient has stated that that he wanted to go to rehab. Microbiology Past 72 Hours 06/02/25 13:40 Blood Culture (Wb) - Right Hand Blood Culture - Preliminary No growth in 48 hours. 06/02/25 13:42 Blood Culture (Wb) - Anticubital Right Blood Culture - Preliminary No growth in 48 hours. Laboratory Results 06/07/25 11:12: POC Glucose 101 Charges/Coding Visit Charges Inpatient E&M: 83662 Subs Hosp L2 06/10/25 2703 <Electronically signed by Ganesh Kiran MD> Cosigner Signature (if applicable): CC: ~ Signed [facility] Work Phone: 1(850) 587-859207-19-2025 Progress note Author Ganesh Kiran [facility] Note Date/Time June 09, 2025 1:15 pm [facility] Medical Records Department [address] [place] [address] [place] [address] Progress Note - Hospitalist 06/09/25 1309 MR#: [id number] Acct: [id number] Name: MANSI CARO Rep #:[id number] : 1955 70 From: Ganesh Amaya PCP: Marci Nuñez DO Status:ADM I N Location: [place] [address] Objective Data Objective Data Vital Signs: Vital Signs Temp Pulse Resp BP Pulse Ox O2 Del Method O2 Flow Rate 97.6 F L 86 18 128/55 H 96 Nasal Cannula 2 06/09/25 09:28 06/09/25 09:28 06/09/25 09:28 06/09/25 09:28 06/09/25 11:36 06/09/25 11:00 06/09/25 11:36 Oxygen Flow Rate (L/min) 2 Oxygen Delivery Method Nasal Cannula Weight: 128 lb 4.944 oz Body Mass Index (BMI) 19.5 Intake & Output: Intake and Output for Last 24 Hours 06/07/25 06/08/25 06/09/25 23:59 23:59 23:59 Intake Total 26.5 / 26.5 350 / 350 Output Total 3 / 3 Balance 23.5 / 23.5 350 / 350 Lab / Micro Data 06/08/25 05:15 06/08/25 05:15 Micro: Microbiology 06/02/25 13:40 Blood Culture (Wb) - Right Hand Blood Culture - Final No growth in 5 days. 06/02/25 13:42 Blood Culture (Wb) - Anticubital Right Blood Culture - Final No growth in 5 days. 06/02/25 14:13 Mucosa - Nasopharyngeal Respiratory Panel (PCR) - Final 06/02/25 13:03 Mucosa - Nose SARS-CoV-2, Influenza & RSV (PCR) - Final Physical Exam Narrative Seen and examined. Patient is doing well. Sometimes she has abdominal cramp but tolerated diet well. No nausea or vomiting. requested to put back on Klonopin. Patient stated she moved out of the bed Hypoxia has resolved. No fever. Nausea and vomiting had improved. Continue Reglan as needed Physical exam General: Alert, Oriented x3, Cooperative HEENT: Atraumatic, PERRLA, EOMI, Normocephalic. Oral: No Gingival or Mucosal Lesions/ Ulcerations Neck: Supple, No JVD, Negative Carotid Bruits Chest wall/Lungs: Air entry diminished in bilateral lung bases. No crepitation/rhonchi Cardiovascular: Regular rate and rhythm, Normal S1,S2, No M/G/R Abdomen: Bowel Sounds Present, Soft, Non Tender, Non-Distended. : No dysuria. No renal angle tenderness. No suprapubic tenderness. Extremities: No edema, Capillary Refill Less than 3 Seconds Skin: No rashes, No breakdown Musculoskeletal: No Tenderness to Palpation of Joints or Extremities Neurological: Cranial nerves II-XII grossly intact, DTR 2+/4. No acute focal neurological deficit. Psych/Mental Status: Flat affect, mild depression. Assessment & Plan Assessment/Plan (1) Pneumonia: (2) Dyspnea: PLAN: Plan 70-year-old female admitted for shortness of breath and abdominal pain. Her pulse ox was 82% on room air at home. No chest pain. CTA was negative for PE but found to have pneumonia. She has mild chronic cough. 1. Bilateral community-acquired pneumonia-patient's chest CTA shows groundglassappearance into the areas of the right middle and lower lobes and left lower lobe tree-in-bud opacity compatible with pneumonitis/pneumonia. Patient told methat she has chronic cough for long time but no fever or chills. Patient had 5 days of antibiotics while here discharged on 2 more days of levofloxacin. Advised to follow-up in pulmonary clinic for PFT. 06/06: Patient's further said she had outside PFT in [place] by fish net maker. 06/07: On levofloxacin. 06/09: Discontinue levofloxacin. Had 5 days of levofloxacin. EGD 04/25/2025 Impression: - Normal esophagus. - No gross lesions in the entire stomach. - Acquired duodenal stenosis. Biopsied. Colonoscopy Impression: - Localized moderate inflammation was found in the rectum secondary to colitis. Biopsied. 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 Biopsied. - Diverticulosis in the recto-sigmoid colon, in the sigmoid colon, in the transverse colon and in the ascending colon. - The examined portion of the ileum was normal. GI consulted. 06/07: EGD was done today. Advance diet as per tolerated Impression: - Normal esophagus. - Gastroparesis. - Acquired duodenal stenosis. Dilated. - No specimens collected. 06/08: Nausea and vomiting has almost resolved. Reglan as needed. 06/09: Tolerating diet well. Chronic IBS #2. Elevated beta natruretic peptide-possible mild congestive heart failure- blood pressure on lower side therefore furosemide was stopped while here. # 3. Hypoxia due to bilateral pneumonia: Hypoxia has resolved. Home oxygen qualification test ordered #4 Type 2 diabetes-patient on 1800-calorie diet, continue home metformin #5 cerebral palsy-complicates care, management, recovery, and prognosis #6 chronic abdominal pain/irritable bowel syndrome/history of ischemic colitis, chronic problem: Patient follows Dr. Lockett in GI office. Celiac test ordered at time of admission is still pending. Follow-up in GI office Persistent nausea and vomiting. 06/08: Celiac test negative and reported normal IgA and normal distal transglutaminase IgA. #7 chronic anxiety/depression-patient will remain on her outpatient medications. 06/08: Physical deconditioning/low motivation for moving out of the bed: Discussed with the patient, correctional casework specialist. Continue PT and OT Discharge plan: Patient has stated that that he wanted to go to rehab. Microbiology Past 70 Hours 06/02/25 13:40 Blood Culture (Wb) - Right Hand Blood Culture - Preliminary No growth in 48 hours. 06/02/25 13:42 Blood Culture (Wb) - Anticubital Right Blood Culture - Preliminary No growth in 48 hours. Laboratory Results 06/07/25 11:12: POC Glucose 101 Charges/Coding Visit Charges Inpatient E&M: 34005 Subs Hosp L2 06/09/25 1315 <Electronically signed by Ganesh Kiran MD> Cosigner Signature (if applicable): CC: ~ Signed [facility] Work Phone: 1(696) 880-340407-19-2025 Telephone encounter Note* Telephone Encounter - Paige GarciaZeke Vick - 06/09/2025 7:46 AM EDT Name of caller Mirlande Contact phone number: [phone] Relationship to Patient: spouse/SO Provider: Dr. Marci Nuñez Practice: [facility] Chief Complaint/Reason for Call: The patient , Song, states his might be released from [facility] on 06-09-2025. Also, the covering doctor at the hospital states the patient might have psychiatrist issues with 8 other things wrong with her. The patient will be discharged to [facility]. Please call the patient at [phone] to advise Best time of day caller can be reached: Anytime Patient advised that office/PCP has 24-48 business hours to return their call: Yes [id number] Miscellaneous Notes* Telephone Encounter - Paige Vick - 06/09/2025 7:46 AM EDT Name of caller Mirlande Contact phone number: [phone] Relationship to Patient: spouse/SO Provider: Dr. Marci Nuñez Practice: [facility] Chief Complaint/Reason for Call: The patient , Song, states his might be released from [facility] on 06-09-2025. Also, the covering doctor at the hospital states the patient might have psychiatrist issues with 8 other things wrong with her. The patient will be discharged to [facility]. Please call the patient at [phone] to advise Best time of day caller can be reached: Anytime Patient advised that office/PCP has 24-48 business hours to return their call: Yes documented in this encounterSFirelands Regional Medical [id number] Progress note Author Ganesh Kiran [facility] Note Date/Time June 08, 2025 4:29 pm [facility] Medical Records Department [address] [place] [address] Progress Note - Hospitalist 06/08/25 1624 MR#: [id number] Acct: [id number] Name: MANSI CARO Rep #:[id number] : 1955 70 From: Ganesh Amaya PCP: Marci Nuñez DO Status:ADM I N Location: [place] [address] Objective Data Objective Data Vital Signs: Vital Signs Temp Pulse Resp BP Pulse Ox O2 Del Method O2 Flow Rate 98 F 84 18 126/70 H 100 Nasal Cannula 2 06/08/25 14:30 06/08/25 14:30 06/08/25 14:30 06/08/25 14:30 06/08/25 14:30 06/08/25 14:30 06/08/25 14:30 Oxygen Flow Rate (L/min) 2 Oxygen Delivery Method Nasal Cannula Weight: 128 lb 4.944 oz Body Mass Index (BMI) 19.5 Intake & Output: Intake and Output for Last 24 Hours 06/06/25 06/07/25 06/08/25 23:59 23:59 23:59 Intake Total 26.5 / 26.5 Output Total 3 / 3 Balance 23.5 / 23.5 Lab / Micro Data 06/08/25 05:15 06/08/25 05:15 Labs: Laboratory Results - last 24 hr 06/05/25 14:00: IgA 350, Endomysial IgA Ab Negative, Tiss Transglutamin IgA <2 06/08/25 05:15: WBC 3.6 L, RBC 3.28 L, Hgb 10.0 L, Hct 30.5 L, MCV 93.0, MCH 30.5, MCHC 32.8, RDW Std Deviation 45.3 H, RDW Coeff of Edita 13.3, Plt Count 232,MPV 10.3, Immature Gran % (Auto) 0.300, Neut % (Auto) 61.1, Lymph % (Auto) 26.4,[place] % (Auto) 11.9 H, Eos % (Auto) 0.0, Baso % (Auto) 0.3, Absolute Neuts (auto)2.2, Absolute Lymphs (auto) 0.95, Nucleated RBC % 0, Sodium 136, Potassium 4.4, Chloride 102, Carbon Dioxide 25.9, Anion Gap 9, BUN 13, Creatinine 0.98, Estim Creat Clear Calc 47.68 L, Est GFR (MDRD) Non-Af 61, BUN/Creatinine Ratio 13.6, Glucose 115 H, Calcium 8.6 Micro: Microbiology 06/02/25 13:40 Blood Culture (Wb) - Right Hand Blood Culture - Final No growth in 5 days. 06/02/25 13:42 Blood Culture (Wb) - Anticubital Right Blood Culture - Final No growth in 5 days. 06/02/25 14:13 Mucosa - Nasopharyngeal Respiratory Panel (PCR) - Final 06/02/25 13:03 Mucosa - Nose SARS-CoV-2, Influenza & RSV (PCR) - Final Physical Exam Narrative Seen and examined. Patient still complain of right-sided abdominal pain but abdomen is soft does not seem tender. I think, patient has psychiatric issues, reinforced to get outof the bed. Not evaluated by PT because did not want to move out of bed. Hypoxia has resolved. No fever. Nausea and vomiting had improved. Continue Reglan as needed Physical exam General: Alert, Oriented x3, Cooperative HEENT: Atraumatic, PERRLA, EOMI, Normocephalic. Oral: No Gingival or Mucosal Lesions/ Ulcerations Neck: Supple, No JVD, Negative Carotid Bruits Chest wall/Lungs: Air entry diminished in bilateral lung bases. No crepitation/rhonchi Cardiovascular: Regular rate and rhythm, Normal S1,S2, No M/G/R Abdomen: Bowel Sounds Present, Soft, Non Tender, Non-Distended. Right-sided voluntary guarding : No dysuria. No renal angle tenderness. No suprapubic tenderness. Extremities: No edema, Capillary Refill Less than 3 Seconds Skin: No rashes, No breakdown Musculoskeletal: No Tenderness to Palpation of Joints or Extremities Neurological: Cranial nerves II-XII grossly intact, DTR 2+/4. No acute focal neurological deficit. Psych/Mental Status: Flat affect, mild depression. Assessment & Plan Assessment/Plan (1) Pneumonia: (2) Dyspnea: PLAN: Plan 70-year-old female admitted for shortness of breath and abdominal pain. Her pulse ox was 82% on room air at home. No chest pain. CTA was negative for PE but found to have pneumonia. She has mild chronic cough. 1. Bilateral community-acquired pneumonia-patient's chest CTA shows groundglassappearance into the areas of the right middle and lower lobes and left lower lobe tree-in-bud opacity compatible with pneumonitis/pneumonia. Patient told methat she has chronic cough for long time but no fever or chills. Patient had 5 days of antibiotics while here discharged on 2 more days of levofloxacin. Advised to follow-up in pulmonary clinic for PFT. 06/06: Patient's further said she had outside PFT in [place] by fish net maker. 06/07: On levofloxacin. EGD 04/25/2025 Impression: - Normal esophagus. - No gross lesions in the entire stomach. - Acquired duodenal stenosis. Biopsied. Colonoscopy Impression: - Localized moderate inflammation was found in the rectum secondary to colitis. Biopsied. 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 Biopsied. - Diverticulosis in the recto-sigmoid colon, in the sigmoid colon, in the transverse colon and in the ascending colon. - The examined portion of the ileum was normal. GI consulted. 06/07: EGD was done today. Advance diet as per tolerated Impression: - Normal esophagus. - Gastroparesis. - Acquired duodenal stenosis. Dilated. - No specimens collected. 06/08: Nausea and vomiting has almost resolved. Reglan as needed. #2. Elevated beta natruretic peptide-possible mild congestive heart failure- blood pressure on lower side therefore furosemide was stopped while here. # 3. Hypoxia due to bilateral pneumonia: Hypoxia has resolved. Home oxygen qualification test ordered #4 Type 2 diabetes-patient on 1800-calorie diet, continue home metformin #5 cerebral palsy-complicates care, management, recovery, and prognosis #6 chronic abdominal pain/irritable bowel syndrome/history of ischemic colitis, chronic problem: Patient follows Dr. Lockett in GI office. Celiac test ordered at time of admission is still pending. Follow-up in GI office Persistent nausea and vomiting. 06/08: Celiac test negative and reported normal IgA and normal distal transglutaminase IgA. #7 chronic anxiety/depression-patient will remain on her outpatient medications. 06/08: Physical deconditioning/low motivation for moving out of the bed: Discussed with the patient, correctional casework specialist. Continue PT and OT Discharge plan: Patient has stated that that he wanted to go to rehab. Microbiology Past 70 Hours 06/02/25 13:40 Blood Culture (Wb) - Right Hand Blood Culture - Preliminary No growth in 48 hours. 06/02/25 13:42 Blood Culture (Wb) - Anticubital Right Blood Culture - Preliminary No growth in 48 hours. Laboratory Results 06/07/25 11:12: POC Glucose 101 Charges/Coding Visit Charges Inpatient E&M: 28486 Subs Hosp L2 06/08/25 9288 <Electronically signed by Ganesh Kiran MD> Cosigner Signature (if applicable): CC: ~ Signed [facility] Work Phone: 1(975) 919-452907-17-2025 Consult note Author Carlos Velázquez [facility] Note Date/Time June 11, 2025 3:38 pm [facility] Medical Records Department [address] [place] [address] Anesthesia Postop Eval II 06/07/25 1628 MR#: [id number] Acct: [id number] Name: MANSI CARO Rep #:[id number] : 1955 70 From: Carlos Amaya PCP: Marci Nuñez DO Status:ADM I N Y Race: C Location: [place] [address] Anesthesia Postop Eval I Sum Postop Eval Completion status Anesthesia document: Postop Eval 1 completed: Yes Anesthesia Postop Eval I Summary Anesthesia Postop Eval I Summary: Anesthesia Postop Eval I: Assessment Summary Airway patent Yes 06/07/25 13:58 [email or web address] Spontaneous unlabored Yes 06/07/25 13:58 [email or web address] respirations Mental status Awake,Calm 06/07/25 13:58 [email or web address] nausea No 06/07/25 13:58 [email or web address] Vomiting No 06/07/25 13:58 [email or web address] Anesthesia Postop Eval I: Fluid Summary Crystalloid volume administer 400 06/07/25 13:58 [email or web address] (ml) Colloids volume administered ( ml) Blood Product volume administered (ml) Total IV fluid infused 400 06/07/25 13:58 [email or web address] Anesthesia Postop Eval I: Summary Notes Anesthesia Complication No 06/07/25 13:58 [email or web address] Anesthesia Complication Comment: Post-operative progress note Anesthesia: Postop Eval II Evaluation Mental status: Awake and Calm Pain Level: 1 nausea: No Vomiting: No 06/07/258 <Electronically signed by Carlos Velázquez MD> Date _ Carlos Velázquez MD Cosigner Signature: Date CC: ~ Signed [facility] Work Phone: 1(496) 829-925107-17-2025 Progress note Author Ganesh Kiran [facility] Note Date/Time June 07, 2025 3:36 pm [facility] Medical Records Department [address] [place] [address] Progress Note - Hospitalist 06/07/25 1533 MR#: [id number] Acct: [id number] Name: MANSI CARO Rep #:[id number] : 1955 70 From: Ganesh Amaya PCP: Marci Nuñez DO Status:ADM I N Location: [place] [address] Objective Data Objective Data Vital Signs: Vital Signs Temp Pulse Resp BP Pulse Ox O2 Del Method O2 Flow Rate 97.9 F 82 18 134/70 H 92 Nasal Cannula 2 06/07/25 14:40 06/07/25 14:40 06/07/25 14:40 06/07/25 14:40 06/07/25 14:40 06/07/25 14:54 06/07/25 14:54 Oxygen Flow Rate (L/min) 2 Oxygen Delivery Method Nasal Cannula Weight: 128 lb 4.944 oz Body Mass Index (BMI) 19.5 Intake & Output: Intake and Output for Last 24 Hours 06/05/25 06/06/25 06/07/25 23:59 23:59 23:59 Intake Total 600 / 600 26.5 / 26.5 Output Total 3 / 3 Balance 600 / 600 23.5 / 23.5 Lab / Micro Data 06/04/25 13:45 06/02/25 10:45 Labs: Laboratory Results - last 24 hr 06/07/25 11:12: POC Glucose 101 Micro: Microbiology 06/02/25 13:40 Blood Culture (Wb) - Right Hand Blood Culture - Preliminary No growth in 48 hours. 06/02/25 13:42 Blood Culture (Wb) - Anticubital Right Blood Culture - Preliminary No growth in 48 hours. 06/02/25 14:13 Mucosa - Nasopharyngeal Respiratory Panel (PCR) - Final 06/02/25 13:03 Mucosa - Nose SARS-CoV-2, Influenza & RSV (PCR) - Final Physical Exam Narrative Seen and examined. Patient still complain of right-sided abdominal pain. She is in laying on the right side with call in position. Plan for EGD today. Hypoxia has resolved. No fever. Patient continued to have nausea and vomitingdespite Zofran. Reglan added Physical exam General: Alert, Oriented x3, Cooperative HEENT: Atraumatic, PERRLA, EOMI, Normocephalic. Oral: No Gingival or Mucosal Lesions/ Ulcerations Neck: Supple, No JVD, Negative Carotid Bruits Chest wall/Lungs: Air entry diminished in bilateral lung bases. No crepitation/rhonchi Cardiovascular: Regular rate and rhythm, Normal S1,S2, No M/G/R Abdomen: Bowel Sounds Present, Soft, Non Tender, Non-Distended. Right-sided voluntary guarding : No dysuria. No renal angle tenderness. No suprapubic tenderness. Extremities: No edema, Capillary Refill Less than 3 Seconds Skin: No rashes, No breakdown Musculoskeletal: No Tenderness to Palpation of Joints or Extremities Neurological: Cranial nerves II-XII grossly intact, DTR 2+/4. No acute focal neurological deficit. Psych/Mental Status: Flat affect, mild depression. Assessment & Plan Assessment/Plan (1) Pneumonia: (2) Dyspnea: PLAN: Plan 70-year-old female admitted for shortness of breath and abdominal pain. Her pulse ox was 82% on room air at home. No chest pain. CTA was negative for PE but found to have pneumonia. She has mild chronic cough. 1. Bilateral community-acquired pneumonia-patient's chest CTA shows groundglassappearance into the areas of the right middle and lower lobes and left lower lobe tree-in-bud opacity compatible with pneumonitis/pneumonia. Patient told methat she has chronic cough for long time but no fever or chills. Patient had 5 days of antibiotics while here discharged on 2 more days of levofloxacin. Advised to follow-up in pulmonary clinic for PFT. 06/06: Patient's further said she had outside PFT in [place] by fish net maker. 06/07: On levofloxacin. EGD 04/25/2025 Impression: - Normal esophagus. - No gross lesions in the entire stomach. - Acquired duodenal stenosis. Biopsied. Colonoscopy Impression: - Localized moderate inflammation was found in the rectum secondary to colitis. Biopsied. 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 Biopsied. - Diverticulosis in the recto-sigmoid colon, in the sigmoid colon, in the transverse colon and in the ascending colon. - The examined portion of the ileum was normal. GI consulted. 06/07: EGD was done today. Advance diet as per tolerated Impression: - Normal esophagus. - Gastroparesis. - Acquired duodenal stenosis. Dilated. - No specimens collected. #2. Elevated beta natruretic peptide-possible mild congestive heart failure- blood pressure on lower side therefore furosemide was stopped while here. # 3. Hypoxia due to bilateral pneumonia: Hypoxia has resolved. Home oxygen qualification test ordered #4 Type 2 diabetes-patient on 1800-calorie diet, continue home metformin #5 cerebral palsy-complicates care, management, recovery, and prognosis #6 chronic abdominal pain/irritable bowel syndrome/history of ischemic colitis, chronic problem: Patient follows Dr. Lockett in GI office. Celiac test ordered at time of admission is still pending. Follow-up in GI office Persistent nausea and vomiting. #7 chronic anxiety/depression-patient will remain on her outpatient medications. Discharge plan: Patient has stated that that he wanted to go to rehab. Microbiology Past 70 Hours 06/02/25 13:40 Blood Culture (Wb) - Right Hand Blood Culture - Preliminary No growth in 48 hours. 06/02/25 13:42 Blood Culture (Wb) - Anticubital Right Blood Culture - Preliminary No growth in 48 hours. Laboratory Results 06/07/25 11:12: POC Glucose 101 Charges/Coding Visit Charges Inpatient E&M: 52019 Subs Hosp L2 06/07/25 1536 <Electronically signed by Ganesh Kiran MD> Cosigner Signature (if applicable): CC: ~ Signed [facility] Work Phone: 1([phone] 158-317407-17-2025 Consult note Author José Miguel Heller [facility] Note Date/Time June 07, 2025 1:58 pm [facility] Medical Records Department [address] [place] [address] Anesthesia Postop Eval I 06/07/25 1357 MR#: [id number] Acct: [id number] Name: MANSI CARO Rep #:[id number] : 1955 70 From: José Miguel Heller PCP: Marci Nuñez DO Status:ADM I N Y Race: C Location: [facility]321 -1 Anesthesia: Postop Eval I Current Vital Signs Temperature: 98.4 F Pulse Rate: 70 Blood Pressure: 120/51 Respiratory Rate: 16 Pulse Ox: 93 Oxygen Delivery Method: Room Air Assessment Airway patent: Yes Spontaneous unlabored respirations: Yes Mental status: Awake and Calm nausea: No Vomiting: No Anesthesia Complication: No Fluid Hydration Crystalloid volume administer (ml): 400 Total IV fluid infused: 400 Progress Note Anesthesia document: Postop Eval 1 completed: Yes 06/07/25 3086 <Electronically signed by José Miguel Heller > Date _ José Miguel Heller Cosigner Signature: Date CC: ~ Signed [facility] Work Phone: [phone] 998-202507-17-2025 Consult note Author Carlos [facility] Note Date/Time June 07, 2025 1:18 pm [facility] Medical Records Department [address] [place] [address] Pre-Anesthesia Evaluation 06/07/25 1310 MR#: [id number] Acct: [id number] Name: MANSI CARO Rep #:[id number] : 1955 70 From: Carlos Amaya PCP: Marci Nuñez DO Status:ADM I N Y Race: C Location: [facility]321 -1 ASA Classification* ASA Classification ASA Classification: 3 Assessment & Plan Anesthesia* Anesthesia Assessment Anesthesia [...] anesthesia risk assessments. Anesthesia Type Anesthesia Type: MAC History Source History Obtained from:: Patient, Chart and Significant Other ( present inpreop and assures that patient took only 1 eye drop of chocolate mild around 9:3 am ) Anesthesia Focused Assessment* Temperature: 98 F Pulse Rate: 79 Blood Pressure: 119/58 Respiratory Rate: 20 Pulse Ox: 93 Oxygen Delivery Method: Room Air Oxygen Flow Rate (L/min): 2 Airway Assessment Mouth opens: >3 cm Mallampati Score: II Teeth Condition: Dentures and Implants Neck Range of motion (ROM): Limited ROM Labs Anesthesia Preop lab: CBC WBC 6.3 K/mm3 (4.4-11.0) 06/04/25 13:45 06/04/25 RBC 3.30 M/mm3 (4.2-5.4) L 06/04/25 13:45 06/04/25 Hgb 10.2 g/dL (12.0-15.0) L 06/04/25 13:45 5 Hct 31.4 % (37-47) L 06/04/25 13:45 06/04/25 Plt Count 232 K/mm3 (150-450) 06/04/25 13:45 06/04/25 CHEMISTRY Potassium 3.8 mmol/L (3.3-5.1) 06/02/25 10:45 06/02/25 Sodium 137 mmol/L (133-145) 06/02/25 10:45 06/02/25 Magnesium 1.6 mg/dL (1.5-2.2) 04/19/25 03:45 04/19/25 Phosphorus 3.4 mg/dL (2.5-4.9) 07/04/24 07:41 07/04/24 BUN 19 mg/dL (4-19) 06/02/25 10:45 06/02/25 Creatinine 1.16 mg/dL (0.70-1.20) 06/02/25 10:45 06/02/25 Glucose 140 mg/dL (70-99) H 06/02/25 10:45 06/02/25 POC Glucose 101 mg/dL (74-106) 06/07/25 11:12 06/07/25 TSH 4.050 uIU/mL (0.300-4.200) 04/19/25 03:45 05/08/16 COAG PT 13.3 SECONDS (11.7-14.9) 09/09/24 14:50 Pre-Assessment Diagnosis/Proposed Procedure Planned Operative Procedure(s): EGD with duodenal stent Anesthesia History Anesthesia History - assessment expert: Anesthesia History - assessment expert Hx Hospitalization Yes: IN TCU PRESENTLY 04/23/25 16:09 Any Problems With Anesthesia No 04/23/25 16:09 Cholinesterase deficiency No 04/23/25 16:09 You/Your Family Experience No 04/23/25 16:09 fever (hyperthermia) with Relationship Recent Exposure to Contagious No 04/25/25 06:48 Disease Does patient have nerve No 04/23/25 16:09 stimulator Patient instructed to have device shut off --Does patient have Pacemaker or ICD? When Was Last Pacemaker Check 202211/13/24 13:46 QUESTION #4 FULL TEXT: You/Your Family Experience fever (hyperthermia) with Anesthesia Last Oral Intake Last Oral intake: Last Oral Intake NPO since Meds taken in AM with sips of water? Meds patient instructed to take am of surgery PONV PONV - assessment expert: PONV - assessment expert Female HX of Motion Sickness HX of N/V After Surgery Non-Smoker Duration of Surgery greater than 60 minutes Number of Risk Factors PONV Score Height & Weight Height & Weight: Anesthesia: Height & Weight Height 5 ft 8 in 06/07/25 10:08 Weight: 58.2 kg 06/07/25 10:08 Body Mass Index (BMI) 19.5 06/02/25 14:27 Respiratory Assessment Respiratory Assessment - assessment expert: Respiratory Tract Infection Hx - assessment expert Hx Respiratory Tract Infection No 04/23/25 16:09 STOP Sleep Apnea STOP Sleep Apnea - assessment expert: STOP Sleep Apnea - assessment expert Hx Hypertension No 06/06/25 16:07 Hx Sleep Apnea No 06/02/25 14:27 CPAP No 04/25/25 07:55 BIPAP No 04/23/25 16:09 Do you snore loudly (louder No 06/02/25 14:27 than talking or can be heard Do you often feel tired/ Yes 06/02/25 14:27 fatigued/ sleepy during daytime? Has anyone observed you stop No 06/02/25 14:27 breathing during sleep? STOP Results Negative 06/02/25 14:27 QUESTION #5 FULL TEXT : Do you snore loudly (louder than talking or can be heard through closed doors)? 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 Specify any problems Hx of Preganancy in last 3 No 06/02/25 14:27 Months Nurse Filling Out Transfusion [id number] 06/02/25 14:27 & Questions: Date: 06/02/25 06/02/25 14:27 Time: 15:11 06/02/25 14:27 Patient unable to answer at this time (ie. confused, unrespo /Reproduction History /Reproductive History - assessment expert: /Reproductive Hx- assessment expert Hx Now Gestational Age (in weeks): EDC: Hx Hx Para Hx Section SAB No 04/23/25 16:09 Active Medications Active Medications: Current Medications Generic Name Dose Route Start Last Admin Trade Name Freq PRN Reason Stop Dose Admin Albuterol Sulfate 2.5 mg 06/02/25 14:27 Albuterol 2.5 Mg/3 Ml Vial.Neb. INHALATION Q2H PRN PRN SOB &/OR WHEEZING Albuterol/Ipratropium 3 ml 06/06/25 00:45 07/16/25 19:30 Ipratropium/Albuterol Sulfate 3 Ml Ampul.Neb INHALATION 3 ml Q6HWA.RT VERONA Administration Aspirin 81 mg 06/02/25 14:27 06/06/25 10:18 Aspirin E.C. 81 Mg Tablet PO 81 mg QODAY VERONA Administration Atorvastatin Calcium 40 mg 06/02/25 22:00 06/06/25 21:16 Atorvastatin Calcium 40 Mg Tablet PO 40 mg QHS VERONA Administration Clonazepam 1 mg 06/02/25 22:00 06/05/25 22:28 Clonazepam 1 Mg Tablet PO 1 mg QHS VERONA Administration Ferrous Sulfate 325 mg 06/03/25 12:00 06/07/25 12:42 Ferrous Sulfate 325 Mg Tablet PO Not Given DAILY@1200 [facility] Heparin Sodium (Porcine) 5,000 unit 06/02/25 22:00 06/07/25 10:47 Heparin Injection (Vial) 5,000 Unit/Ml Vial SC 5,000 unit Q12 VERONA Administration Hyoscyamine Sulfate 0.125 mg 06/02/25 14:54 06/05/25 09:51 Hyoscyamine Sulfate 0.125 Mg Tablet PO 0.125 mg TID PRN Administration dyspepsia Sodium Chloride 250 mls @ 15 mls/hr 06/02/25 15:17 IV .[id number] PRN Saline Flush Sodium Chloride 250 mls @ 15 mls/hr 06/02/25 15:17 IV .[id number] PRN Additional IVPB Infusion Sodium Chloride 250 mls @ 15 mls/hr 06/03/25 16:15 IV .[id number] PRN Saline Flush Sodium Chloride 250 mls @ 15 mls/hr 06/03/25 16:15 IV .[id number] PRN Additional IVPB Infusion Lactated Ringer's 1,000 mls @ 15 mls/hr 06/07/25 13:15 IV .Q48H [facility] Lamotrigine 100 mg 06/02/25 14:27 06/06/25 10:18 Lamotrigine 100 Mg Tablet PO 100 mg DAILY VERONA Administration Levofloxacin 500 mg 06/05/25 06:00 06/07/25 05:46 Levofloxacin 500 Mg Tablet PO 500 mg DAILY@0600 [facility] Administration Metformin HCl 500 mg 06/02/25 22:00 06/07/25 10:38 Metformin Hcl 500 Mg Tablet PO Not Given BID VERONA Metoclopramide HCl 5 mg 06/06/25 16:49 06/07/25 10:04 Metoclopramide 10 Mg/2 Ml Vial IV 5 mg Q6H PRN PRN Administration NAUSEA/VOMITING Morphine Sulfate 2 mg 06/07/25 10:26 06/07/25 10:47 Morphine 2 Mg/Ml Syringe IV 2 mg Q4H PRN PRN Administration Pain Score 6-10 or Pre PT/OT Ondansetron HCl 4 mg 06/02/25 14:27 06/07/25 08:00 Ondansetron 4 Mg/2 Ml Vial IV 4 mg Q8H PRN PRN Administration NAUSEA/VOMITING Ondansetron HCl 4 mg 06/03/25 06:00 06/07/25 05:46 Ondansetron Odt 4 Mg Tablet PO 4 mg Q8 VERONA Administration Oxycodone HCl 5 mg 06/02/25 14:27 06/07/25 08:00 Oxycodone 5 Mg Tablet PO 5 mg Q6H PRN PRN Administration Pain Score 6-10 Pantoprazole Sodium 40 mg 06/03/25 10:00 06/07/25 10:38 Pantoprazole Sodium 40 Mg Tablet PO Not Given DAILY VERONA Phenazopyridine HCl 100 mg 06/02/25 17:09 06/07/25 10:00 Phenazopyridine 95 Mg Tablet PO 100 mg TID PRN PRN Administration pain Polyethylene Glycol 17 gm 06/03/25 10:00 06/07/25 08:48 Polyethylene Glycol 3350 17 Gm Packet PO Not Given DAILY VREONA Trazodone HCl 50 mg 06/04/25 22:00 06/06/25 21:16 Trazodone 50 Mg Tablet PO 50 mg QHS VERONA Administration PFSH Medical History Pneumonia Dyspnea Back pain History of Holter monitoring History [...] (patent foramen ovale) Cardiac resynchronization therapy defibrillator (MILL OPERATOR HEAD-D) in place Myocarditis Hyperlipidemia Hypertension Home Medications ?Medication ?Instructions ?Recorded ?Last Taken ?Type clonazepam 1 mg tablet 1 mg PO QHS anxiety 11/18/14 06/01/25 History trazodone 50 mg tablet 50 mg PO DAILY Anxiety 11/1806/01/25 History aspirin 81 mg tablet,delayed 81 mg PO .COMPLEX heart 1 12/01/22 06/01/25 History release rosuvastatin 20 mg tablet 20 mg PO QHS cholesterol 12/1506/01/25 History furosemide 20 mg tablet 20 mg PO QDAY PRN for 2lb we ight 06/13/24 06/19/24 History gain escitalopram oxalate 5 mg tablet 5 mg PO QDAY Mood 06/1506/01/25 History polyethylene glycol 3350 17 17 g PO DAILY Constipation 11/28/24 06/01/25 History gram/dose oral powder (Miralax) lamotrigine 100 mg tablet 100 mg PO QDAY Anxiety 01/2306/02/25 History ferrous sulfate 325 mg (65 mg 325 mg PO QDAY Supplemen t 02/13/25 06/01/25 History iron) tablet (Feosol) linaclotide 145 mcg capsule 145 mcg PO QAM Constipatio n #60 02/14/25 Unknown Rx (Linzess) caps deutetrabenazine 6 mg 6 mg PO DAILY involuntary Mo vements 04/19/25 04/20/25 08:50 History tablet,extended release 24 hr (Austedo XR) oxycodone 5 mg tablet 5 mg PO Q6H PRN PRN Pain Sco re 04/30/25 Unknown Rx 6-10 7 days #28 tabs pantoprazole 40 mg tablet,delayed 40 mg PO DAILY 30 da ys #30 tabs 04/30/25 06/01/25 Rx release baclofen 5 mg tablet 5 mg PO DAILY SPASCITY 05/2906/01/25 History docusate sodium 100 mg capsule 100 mg PO DAILY CONSTIP ATION 05/29/25 Unknown History metformin 500 mg tablet 500 mg PO BID Diabetes 05/2906/01/25 History ondansetron 4 mg disintegrating 4 mg PO Q8H #30 tabs 0 05/30/25 06/01/25 Rx tablet phenazopyridine 100 mg tablet 100 mg PO TID PRN PRN pa in 06/02/25 06/02/25 History hyoscyamine sulfate 0.125 mg tablet 0.125 mg PO TID LA N dyspepsia #90 06/04/25 Unknown Rx tabs levofloxacin 500 mg tablet 500 mg PO DAILY@0600 2 days #2 tabs 06/06/25 Unknown Rx Allergy/AdvReac Type Severity Reaction Status Date / Time No Known Allergies Allergy Verified 06/02/25 10:33 Family History Father Heart disease Myocardial infarction [...] and no additional complaints, except as documented. 06/07/25 2338 <Electronically signed by Carlos Velázquez MD> Date _ Carlos Velázquez MD Cosigner Signature: Date CC: ~ Signed [facility] Work Phone: [phone] 384-155507-17-2025 Consult note Author Shan Lockett [facility] Note Date/Time June 07, 2025 1:03 pm [facility] Medical Records Department [address] [place] [address] Consultation - GI 06/07/25 1300 MR#: [id number] Acct: [id number] Name: MANSI CARO Rep #:[id number] : 1955 70 From: Shan Lockett DO PCP: Marci Nuñez DO Status:ADM I N Location: [place] [address] HPI Consult Data Date of Consult: 06/07/25 HPI Narrative Reason for Consultation: Abdominal pain with nausea vomiting HPI Narrative: MANSI CARO, is a 70 F who presented to [facility] after her physician sent her in due to an elevated D-dimer that he had collected as an outpatient. Patient also complained of shortness of breath, abdominal pain, andnausea. She was diagnosed with CHF and commune acquired pneumonia. She was treated up appropriately. However she has not been able to keep any solid foodsdown. She did undergo an EGD by myself and was discovered to have duodenal stenosis. I was 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 [facility] Medical History Pneumonia Dyspnea Back pain History of Holter monitoring History [...] (patent foramen ovale) Cardiac resynchronization therapy defibrillator (MILL OPERATOR HEAD-D) in place Myocarditis Hyperlipidemia Hypertension Home Medications ?Medication ?Instructions ?Recorded ?Last Taken ?Type clonazepam 1 mg tablet 1 mg PO QHS anxiety 11/18/14 06/01/25 History trazodone 50 mg tablet 50 mg PO DAILY Anxiety 11/1806/01/25 History aspirin 81 mg tablet,delayed 81 mg PO .COMPLEX heart 1 12/01/22 06/01/25 History release rosuvastatin 20 mg tablet 20 mg PO QHS cholesterol 12/1506/01/25 History furosemide 20 mg tablet 20 mg PO QDAY PRN for 2lb we ight 06/13/24 06/19/24 History gain escitalopram oxalate 5 mg tablet 5 mg PO QDAY Mood 06/1506/01/25 History polyethylene glycol 3350 17 17 g PO DAILY Constipation 11/28/24 06/01/25 History gram/dose oral powder (Miralax) lamotrigine 100 mg tablet 100 mg PO QDAY Anxiety 01/2306/02/25 History ferrous sulfate 325 mg (65 mg 325 mg PO QDAY Supplemen t 02/13/25 06/01/25 History iron) tablet (Feosol) linaclotide 145 mcg capsule 145 mcg PO QAM Constipatio n #60 02/14/25 Unknown Rx (Linzess) caps deutetrabenazine 6 mg 6 mg PO DAILY involuntary Mo vements 04/19/25 04/20/25 08:50 History tablet,extended release 24 hr (Austedo XR) oxycodone 5 mg tablet 5 mg PO Q6H PRN PRN Pain Sco re 04/30/25 Unknown Rx 6-10 7 days #28 tabs pantoprazole 40 mg tablet,delayed 40 mg PO DAILY 30 da ys #30 tabs 04/30/25 06/01/25 Rx release baclofen 5 mg tablet 5 mg PO DAILY SPASCITY 05/2906/01/25 History docusate sodium 100 mg capsule 100 mg PO DAILY CONSTIP ATION 05/29/25 Unknown History metformin 500 mg tablet 500 mg PO BID Diabetes 05/2906/01/25 History ondansetron 4 mg disintegrating 4 mg PO Q8H #30 tabs 0 05/30/25 06/01/25 Rx tablet phenazopyridine 100 mg tablet 100 mg PO TID PRN PRN pa in 06/02/25 06/02/25 History hyoscyamine sulfate 0.125 mg tablet 0.125 mg PO TID LA N dyspepsia #90 06/04/25 Unknown Rx tabs levofloxacin 500 mg tablet 500 mg PO DAILY@0600 2 days #2 tabs 06/06/25 Unknown Rx Allergy/AdvReac Type Severity Reaction Status Date / Time No Known Allergies Allergy Verified 06/02/25 10:33 Family History Father Heart disease Myocardial infarction [...] Percussion: normal to percussion Rectal Exam: deferred Lab / Micro Data 06/04/25 13:45 06/02/25 10:45 Labs: Laboratory Results - last 24 hr 06/07/25 11:12: POC Glucose 101 Assessment & Plan Assessment/Plan (1) Duodenal stenosis: PLAN: 70-year-old with history of nausea , vomiting and gastric outlet obstruction secondary to duodenal stenosis. Previous biopsies of duodenal stones did not reveal any malignancy. It was thought to be secondary to medicines. She will undergo an EGD with possible dilation and possible stent placement. She was explained alternatives, risk and benefits cleanout with standard bleeding, p.o., septal, perforation, need for emergent . She willhave an ASA of 3. Charges/Coding Visit Charges Inpatient E&M: 42776 Init Hosp L3 06/07/25 1303 <Electronically signed by Shan Lockett DO> Cosigner Signature (if applicable): CC: Marci Nuñez DO~ Signed [facility] Work Phone: 1([phone] 942-940907-17-2025 Procedure [facility] 06-06-2025 Progress note Author Ganesh Kiran [facility] Note Date/Time June 06, 2025 4:53 pm [facility] Medical Records Department [address] [place] [id number] Progress Note - Hospitalist 06/06/25 1339 MR#: [id number] Acct: [id number] Name: MANSI CARO Rep #:[id number] : 1955 70 From: Ganesh Amaya PCP: Marci Nuñez DO Status:ADM I N Location: [place] [address] Objective Data Objective Data Vital Signs: Vital Signs Temp Pulse Resp BP Pulse Ox O2 Del Method O2 Flow Rate 98.5 F 81 16 143/63 H 92 Room Air 95 06/06/25 10:03 06/06/25 12:18 06/06/25 12:18 06/06/25 10:03 06/06/25 12:18 06/06/25 12:18 06/06/25 10:00 Oxygen Flow Rate (L/min) 95 Oxygen Delivery Method Room Air Weight: 128 lb 4.944 oz Body Mass Index (BMI) 19.5 Intake & Output: Intake and Output for Last 24 Hours 06/04/25 06/05/25 06/06/25 23:59 23:59 23:59 Intake Total 300 / 300 600 / 600 Balance 300 / 300 600 / 600 Lab / Micro Data 06/04/25 13:45 06/02/25 10:45 Micro: Microbiology 06/02/25 13:40 Blood Culture (Wb) - Right Hand Blood Culture - Preliminary No growth in 48 hours. 06/02/25 13:42 Blood Culture (Wb) - Anticubital Right Blood Culture - Preliminary No growth in 48 hours. 06/02/25 14:13 Mucosa - Nasopharyngeal Respiratory Panel (PCR) - Final 06/02/25 13:03 Mucosa - Nose SARS-CoV-2, Influenza & RSV (PCR) - Final Physical Exam Narrative Seen and examined. Patient is stated that she has chronic cough. Hypoxia has resolved. No fever. Patient continued to have nausea and vomiting despite Zofran. Reglan added Physical exam General: Alert, Oriented x3, Cooperative HEENT: Atraumatic, PERRLA, EOMI, Normocephalic. Oral: No Gingival or Mucosal Lesions/ Ulcerations Neck: Supple, No JVD, Negative Carotid Bruits Chest wall/Lungs: Air entry diminished in bilateral lung bases. No crepitation/rhonchi Cardiovascular: Regular rate and rhythm, Normal S1,S2, No M/G/R Abdomen: Bowel Sounds Present, Soft, Non Tender, Non-Distended : No dysuria. No renal angle tenderness. No suprapubic tenderness. Extremities: No edema, Capillary Refill Less than 3 Seconds Skin: No rashes, No breakdown Musculoskeletal: No Tenderness to Palpation of Joints or Extremities Neurological: Cranial nerves II-XII grossly intact, DTR 2+/4. No acute focal neurological deficit. Psych/Mental Status: Flat affect, mild depression. Assessment & Plan Assessment/Plan (1) Pneumonia: (2) Dyspnea: PLAN: Plan 70-year-old female admitted for shortness of breath and abdominal pain. Her pulse ox was 82% on room air at home. No chest pain. CTA was negative for PE but found to have pneumonia. She has mild chronic cough. 1. Bilateral community-acquired pneumonia-patient's chest CTA shows groundglassappearance into the areas of the right middle and lower lobes and left lower lobe tree-in-bud opacity compatible with pneumonitis/pneumonia. Patient told methat she has chronic cough for long time but no fever or chills. Patient had 5 days of antibiotics while here discharged on 2 more days of levofloxacin. Advised to follow-up in pulmonary clinic for PFT. 06/06: Patient's further said she had outside PFT in [place] by fish net maker. EGD 04/25/2025 Impression: - Normal esophagus. - No gross lesions in the entire stomach. - Acquired duodenal stenosis. Biopsied. Colonoscopy Impression: - Localized moderate inflammation was found in the rectum secondary to colitis. Biopsied. 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 Biopsied. - Diverticulosis in the recto-sigmoid colon, in the sigmoid colon, in the transverse colon and in the ascending colon. - The examined portion of the ileum was normal. GI consulted. #2 elevated beta natruretic peptide-possible mild congestive heart failure-bloodpressure on lower side therefore furosemide was stopped while here. # 3. Hypoxia due to bilateral pneumonia: Hypoxia has resolved. Home oxygen qualification test ordered #4 Type 2 diabetes-patient on 1800-calorie diet, continue home metformin #5 cerebral palsy-complicates care, management, recovery, and prognosis #6 chronic abdominal pain/irritable bowel syndrome/history of ischemic colitis, chronic problem: Patient follows Dr. Lockett in GI office. Celiac test ordered at time of admission is still pending. Follow-up in GI office Persistent nausea and vomiting. #7 chronic anxiety/depression-patient will remain on her outpatient medications. Discharge medication reconciliation done. Discharge follow-up instructions completed. Discharge process discussed with the patient and all questions wereanswered to patient's satisfaction. Follow with PCP in 1 to 2 weeks Total time spent, exact 35 minutes on discharge meds reconciliation, examination, coordination of care with nurses and ancillary staff, review of imaging and blood test and discussion with the patient on follow-up instructions. Charges/Coding Visit Charges Inpatient E&M: 34288 Subs Hosp L2 06/06/25 1449 <Electronically signed by Ganesh Kiran MD> Cosigner Signature (if applicable): CC: ~ Signed [facility] Work Phone: [phone] Discharge summary Author Ganesh Kiran [facility] Note Date/Time June 06, 2025 12:2 6pm [facility] Medical Records Department [address] [place] [address] Discharge Summary 06/06/25 1219 MR#: [id number] Acct: [id number] Name: MANSI CARO Rep #:[id number] : 1955 70 From: Ganesh Amaya PCP: Marci Nuñez DO Status:ADM I N [place] [facility] [id number] Providers Date of Admission: 06/02/25 Date of Discharge: 06/06/25 Primary Care Physician: Dr. Marci Nuñez DO Reason For Visit: PNEUMONIA, HYPOXIA Diagnosis Discharge Diagnosis (1) Pneumonia: Status: Acute Code(s): J18.9 - Pneumonia, unspecified organism (2) Dyspnea: Status: Acute Code(s): R06.00 - Dyspnea, unspecified Plan 70-year-old female admitted for shortness of breath and abdominal pain. Her pulse ox was 82% on room air at home. No chest pain. CTA was negative for PE but found to have pneumonia. She has mild chronic cough. 1. Bilateral community-acquired pneumonia-patient's chest CTA shows groundglassappearance into the areas of the right middle and lower lobes and left lower lobe tree-in-bud opacity compatible with pneumonitis/pneumonia. Patient told methat she has chronic cough for long time but no fever or chills. Patient had 5 days of antibiotics while here discharged on 2 more days of levofloxacin. Advised to follow-up in pulmonary clinic for PFT. #2 elevated beta natruretic peptide-possible mild congestive heart failure-bloodpressure on lower side therefore furosemide was stopped while here. # 3. Hypoxia due to bilateral pneumonia: Hypoxia has resolved. Home oxygen qualification test ordered #4 Type 2 diabetes-patient on 1800-calorie diet, continue home metformin #5 cerebral palsy-complicates care, management, recovery, and prognosis #6 chronic abdominal pain/irritable bowel syndrome/history of ischemic colitis, chronic problem: Patient follows Dr. Lockett in GI office. Celiac test ordered at time of admission is still pending. Follow-up in GI office #7 chronic anxiety/depression-patient will remain on her outpatient medications. Discharge medication reconciliation done. Discharge follow-up instructions completed. Discharge process discussed with the patient and all questions wereanswered to patient's satisfaction. Follow with PCP in 1 to 2 weeks Total time spent, exact 35 minutes on discharge meds reconciliation, examination, coordination of care with nurses and ancillary staff, review of imaging and blood test and discussion with the patient on follow-up instructions. Medications at Discharge Home Medications clonazepam 1 mg tablet 1 mg PO QHS anxiety 11/18/14 trazodone 50 mg tablet 50 mg PO DAILY Anxiety 11/18/14 aspirin 81 mg tablet,delayed release 81 mg PO .COMPLEX heart 10/01/23 rosuvastatin 20 mg tablet 20 mg PO QHS cholesterol 02/21/24 furosemide 20 mg tablet 20 mg PO QDAY PRN for 2lb weight gain 06/13/24 escitalopram oxalate 5 mg tablet 5 mg PO QDAY Mood 11/28/24 polyethylene glycol 3350 17 gram/dose oral powder (Miralax) 17 g PO DAILY Constipation 11/28/24 lamotrigine 100 mg tablet 100 mg PO QDAY Anxiety 01/23/25 ferrous sulfate 325 mg (65 mg iron) tablet (Feosol) 325 mg PO QDAY Supplement 02/13/25 linaclotide 145 mcg capsule (Linzess) 145 mcg PO QAM Constipation #60 caps 02/14/25 deutetrabenazine 6 mg tablet,extended release 24 hr (Austedo XR) 6 mg PO DAILY involuntary Movements 04/19/25 oxycodone 5 mg tablet 5 mg PO Q6H PRN PRN Pain Score 6-10 7 days #28 tabs 04/30/25 pantoprazole 40 mg tablet,delayed release 40 mg PO DAILY 30 days #30 tabs 04/30/25 baclofen 5 mg tablet 5 mg PO DAILY SPASCITY 05/29/25 docusate sodium 100 mg capsule 100 mg PO DAILY CONSTIPATION 05/29/25 metformin 500 mg tablet 500 mg PO BID Diabetes 05/29/25 ondansetron 4 mg disintegrating tablet 4 mg PO Q8H #30 tabs 05/30/25 phenazopyridine 100 mg tablet 100 mg PO TID PRN PRN pain 06/02/25 hyoscyamine sulfate 0.125 mg tablet 0.125 mg PO TID PRN dyspepsia #90 tabs 06/04/25 levofloxacin 500 mg tablet 500 mg PO DAILY@0600 2 days #2 tabs 06/06/25 Physical Exam Narrative Seen and examined. Patient is stated that she has chronic cough. Hypoxia has resolved. No fever. Physical exam General: Alert, Oriented x3, Cooperative HEENT: Atraumatic, PERRLA, EOMI, Normocephalic. Oral: No Gingival or Mucosal Lesions/ Ulcerations Neck: Supple, No JVD, Negative Carotid Bruits Chest wall/Lungs: Air entry diminished in bilateral lung bases. No crepitation/rhonchi Cardiovascular: Regular rate and rhythm, Normal S1,S2, No M/G/R Abdomen: Bowel Sounds Present, Soft, Non Tender, Non-Distended : No dysuria. No renal angle tenderness. No suprapubic tenderness. Extremities: No edema, Capillary Refill Less than 3 Seconds Skin: No rashes, No breakdown Musculoskeletal: No Tenderness to Palpation of Joints or Extremities Neurological: Cranial nerves II-XII grossly intact, DTR 2+/4. No acute focal neurological deficit. Psych/Mental Status: Flat affect, mild depression. Weight / BMI Weight Weight: 128 lb 4.944 oz Body Mass Index (BMI) 19.5 ABG / Lab / Microbiology Data 06/04/25 13:45 06/02/25 10:45 Microbiology: Microbiology 06/02/25 13:40 Blood Culture (Wb) - Right Hand Blood Culture - Preliminary No growth in 48 hours. 06/02/25 13:42 Blood Culture (Wb) - Anticubital Right Blood Culture - Preliminary No growth in 48 hours. 06/02/25 14:13 Mucosa - Nasopharyngeal Respiratory Panel (PCR) - Final 06/02/25 13:03 Mucosa - Nose SARS-CoV-2, Influenza & RSV (PCR) - Final D/C Instructions Weight Bearing Status: Weight bearing as tolerated Call your doctor if you observe: Fever of 101 or Higher, Coldness, Increased Pain, Numbness or Tingling, Change in Color, Inability to urinate, Inability to have a bowel movement, Shortness of breath, Dizziness, Fainting spells, Swellingin the ankles, Chest pain, Prolonged hiccupping, Increased palpitations (irregular heartbeat) and Calf discomfort DC O2, CPAP, BIPAP Needs Home O2 Discharge instructions: No When: IN 2 WEEKS Meaningful Use Info Meaningful Use Meaningful Use Diagnoses (Choose all that apply): None applicable Discharge Plan Admission Admit Date/Time: 06/02/25 13:36 Primary Reason for Your Visit: Community-acquired pneumonia Attending Provider: Ganesh Kiran Primary Care Provider: Marci Nuñez Consulting Providers: Ben Johnson Discharge Orders/Prescriptions Prescriptions: New levofloxacin 500 mg Tablet 500 mg PO DAILY@0600 2 Days Qty: 2 0RF Continued furosemide 20 mg tablet 20 mg PO QDAY PRN (Reason: for 2lb weight gain) metformin 500 mg tablet 500 mg PO BID lamotrigine 100 mg tablet 100 mg PO QDAY escitalopram oxalate 5 mg tablet 5 mg PO QDAY polyethylene glycol 3350 [Miralax] 17 gram/dose powder 17 g PO DAILY docusate sodium 100 mg capsule 100 mg PO DAILY Patient Comments: stopped 05/30/25 baclofen 5 mg tablet 5 mg PO DAILY Patient Comments: PRESCRIPTION FOR 4 TIMES DAILY ferrous sulfate [Feosol] 325 mg (65 mg iron) tablet 325 mg PO QDAY Linzess 145 mcg capsule 145 mcg PO QAM Qty: 60 2RF Patient Comments: stopped 05/30/25 ondansetron 4 mg tablet,disintegrating 4 mg PO Q8H Qty: 30 3RF trazodone 50 MG tablet 50 mg PO DAILY clonazepam 1 MG tablet 1 mg PO QHS aspirin 81 mg tablet,delayed release (DR/EC) 81 [...] release 24 hr 6 mg PO DAILY Patient Comments: stopped 06/02/25 phenazopyridine 100 mg tablet 100 mg PO TID PRN PRN (Reason: pain) hyoscyamine sulfate 0.125 mg tablet 0.125 mg PO TID PRN (Reason: dyspepsia) Qty: 90 2RF Referrals / Follow Up: Marci Nuñez, [Primary Care Provider] - Lluvia Kilpatrick, MACHINE CLEANER-C [Med Staff - Adv Practice Prof] - Within 1 Month (For COPD evaluation) Disposition Disposition (needs filled in before D/C Order can be placed): Home, Self Care Charges/Coding Visit Charges Inpatient E&M: 14543 Disch Hosp >30min 06/06/25 1226 <Electronically signed by Ganesh Kiran MD> Cosigner Signature (if applicable): CC: Dr. Ganesh Kiran MD; Marci Nuñez DO~ Signed [facility] Work Phone: 1(232) 735-471707-16-2025 Discharge summary Author Ganesh Kiran [facility] Note Date/Time June 06, 2025 12:1 9pm [facility] Medical Records Department [address] [place] [id number] Instructions for Home/Discharge Instructions 06/06/25 0955 MR#: [id number] Acct: [id number] Name: MANSI CARO Rep #:[id number] 10 : 1955 70 From: Ganesh Amaya PCP: Marci Nuñez DO Status:ADM I N Discharge Instructions DC O2, CPAP, BIPAP needs Home O2 Discharge instructions: No Dressing / Incision Discharge Activity: Return to Normal Activity and - (Resume baseline activity) Weight Bearing Status: Weight bearing as tolerated Dressing / Incision Call your doctor if you observe: Fever of 101 or Higher, Coldness, Increased Pain, Numbness or Tingling, Change in Color, Inability to urinate, Inability to have a bowel movement, Shortness of breath, Dizziness, Fainting spells, Swellingin the ankles, Chest pain, Prolonged hiccupping, Increased palpitations (irregular heartbeat) and Calf discomfort Follow Up Care When: IN 2 WEEKS Test Results: Test results from this visit will be discussed in further detail at your follow- up appointment, if applicable. Discharge Plan Admission Admit Date/Time: 06/02/25 13:36 Primary Reason for Your Visit: Community-acquired pneumonia Attending Provider: Ganesh Kiran Primary Care Provider: Marci Nuñez Consulting Providers: Ben Johnson Discharge Orders/Prescriptions Prescriptions: New levofloxacin 500 mg Tablet 500 mg PO DAILY@0600 2 Days Qty: 2 0RF Continued furosemide 20 mg tablet 20 mg PO QDAY PRN (Reason: for 2lb weight gain) metformin 500 mg tablet 500 mg PO BID lamotrigine 100 mg tablet 100 mg PO QDAY escitalopram oxalate 5 mg tablet 5 mg PO QDAY polyethylene glycol 3350 [Miralax] 17 gram/dose powder 17 g PO DAILY docusate sodium 100 mg capsule 100 mg PO DAILY Patient Comments: stopped 05/30/25 baclofen 5 mg tablet 5 mg PO DAILY Patient Comments: PRESCRIPTION FOR 4 TIMES DAILY ferrous sulfate [Feosol] 325 mg (65 mg iron) tablet 325 mg PO QDAY Linzess 145 mcg capsule 145 mcg PO QAM Qty: 60 2RF Patient Comments: stopped 05/30/25 ondansetron 4 mg tablet,disintegrating 4 mg PO Q8H Qty: 30 3RF trazodone 50 MG tablet 50 mg PO DAILY clonazepam 1 MG tablet 1 mg PO QHS aspirin 81 mg tablet,delayed release (DR/EC) 81 [...] release 24 hr 6 mg PO DAILY Patient Comments: stopped 06/02/25 phenazopyridine 100 mg tablet 100 mg PO TID PRN PRN (Reason: pain) hyoscyamine sulfate 0.125 mg tablet 0.125 mg PO TID PRN (Reason: dyspepsia) Qty: 90 2RF Referrals / Follow Up: Marci Nuñez DO [Primary Care Provider] - Lluvia Kilpatrick MACHINE CLEANER-C [Med Staff - [facility]] - Within 1 Month (For COPD evaluation) Disposition Disposition (needs filled in before D/C Order can be placed): Home, Self Care 06/06/25 1219<Electronically signed by Ganesh Kiran MD>Ganesh Kiran MD CC: Dr. Ben Johnson DO; Marci Nuñez DO ~ Signed [facility] Work Phone: 1(975) 866-881107-16-[address] [facility]07-15-2025 Progress note Author Ben Johnson [facility] Note Date/Time June 05, 2025 3:12 pm [facility] Medical Records Department [address] [place] [address] Progress Note - Hospitalist 06/05/25 1509 MR#: [id number] Acct: [id number] Name: MANSI CARO Rep #:[id number] 23 : 1955 70 From: Ben Johnson DO PCP: Marci Nuñez DO Status:ADM I N Location: [place] [address] Subjective Subjective Patient was seen and examined today, earlier today she required oxygen at 2 L/min, was reluctant to take the patient home today and I told him we would recheck her tomorrow morning for possible discharge home. Objective Data Objective Data Vital Signs: Vital Signs Temp Pulse Resp BP Pulse Ox O2 Del Method O2 Flow Rate 98.6 F 74 16 112/60 93 Room Air 2 06/05/25 14:26 06/05/25 14:26 06/05/25 14:26 06/05/25 14:26 06/05/25 14:26 06/05/25 14:26 06/05/25 09:50 Oxygen Flow Rate (L/min) 2 Oxygen Delivery Method Room Air Weight: 58.2 kg Body Mass Index (BMI) 19.5 Intake & Output: Intake and Output for Last 24 Hours 06/03/25 06/04/25 06/05/25 23:59 23:59 23:59 Intake Total 940 / 940 300 / 300 250 / 250 Balance 940 / 940 300 / 300 250 / 250 Lab / Micro Data 06/04/25 13:45 06/02/25 10:45 Micro: Microbiology 06/02/25 13:40 Blood Culture (Wb) - Right Hand Blood Culture - Preliminary No growth in 48 hours. 06/02/25 13:42 Blood Culture (Wb) - Anticubital Right Blood Culture - Preliminary No growth in 48 hours. 06/02/25 14:13 Mucosa - Nasopharyngeal Respiratory Panel (PCR) - Final 06/02/25 13:03 Mucosa - Nose SARS-CoV-2, Influenza & RSV (PCR) - Final Physical Exam Narrative alert and no apparent distress Constitutional Narrative: Patient appears disheveled and does not carry on a conversation with this examiner, she does follow commands. General Appearance: cooperative and well developed Orientation / Consciousness: awake [...] noted General Skin Exam: no breakdown Neuro CN's II-XII intact bilaterally, moves all extremities, no focal motor deficits and no sensory deficits noted Sensorium / Orientation: awake, alert, oriented to person and oriented to place Speech: speech normal Psych Psych Narrative: Patient has flat affect, he does not readily carry on conversations with this examiner Assessment & Plan Assessment/Plan (1) Pneumonia: (2) Dyspnea: PLAN: Plan 1. Community-acquired pneumonia-patient's chest CTA shows groundglass appearance into the areas of the right lung in particular. It is hard to determine whether this is pneumonia-she has a normal white blood cell count and is not having any symptoms of cough, fever, or chills. Patient is now on oral Levaquin, if the patient appears medically stable on 06/06/2025, she could be discharged home. #2 elevated beta natruretic peptide-possible mild congestive heart failure-I decided to stop the patient's IV Lasix due to her hypotension #3 hypoxia secondary to #1 #2-pulse ox will be monitored, she will need a walking home oxygen qualification test tomorrow #4 Type 2 diabetes-patient will be placed on 1800-calorie diet, I do not feel the patient needs to be monitored with fingerstick blood sugars at this time, she is only on metformin. #5 cerebral palsy-complicates care, management, recovery, and prognosis #6 chronic abdominal pain/irritable bowel syndrome/history of ischemic colitis Armando not feel the patient needs a workup for her complaints of abdominal pain, this seems to be a chronic problem. Patient's requested that I check her for celiac disease, I ordered a celiac panel on the patient. #7 chronic anxiety/depression-patient will remain on her outpatient medications. Total clinical time spent by myself addressing the patient's medical issues, reviewing all of her data, and collaborating with the patient's care team: 35 minutes Charges/Coding Visit Charges Inpatient E&M: 39705 Subs Hosp L2 06/05/25 1512 <Electronically signed by Ben Johnson DO> Cosigner Signature (if applicable): CC: ~ Signed [facility] Work Phone: 1(494) 334-376407-14-2025 Progress note Author Ben Paulinoaitkin hospitalesther [facility] Note Date/Time June 04, 2025 6:22 pm [facility] Medical Records Department [address] [place] [address] Progress Note - Hospitalist 06/04/25 1820 MR#: [id number] Acct: [id number] Name: MANSI CARO Rep #:[id number] 30 : 1955 70 From: Ben Johnson DO PCP: Marci Nuñez DO Status:ADM I N Location: [place] [address] Subjective Subjective Patient was seen and examined today, I talked with the patient's who is in the room at the time of my examination. Patient is currently on room air at this time. I have decided to change the patient over from IV antibiotics to oral antibiotics. Objective Data Objective Data Vital Signs: Vital Signs Temp Pulse Resp BP Pulse Ox O2 Del Method O2 Flow Rate 98.4 F 83 18 106/55 L 94 Room Air 2 06/04/25 14:15 06/04/25 14:15 06/04/25 14:15 06/04/25 14:15 06/04/25 14:15 06/04/25 14:15 06/04/25 11:02 Oxygen Flow Rate (L/min) 2 Oxygen Delivery Method Room Air Weight: 58.2 kg Body Mass Index (BMI) 19.5 Intake & Output: Intake and Output for Last 24 Hours 06/02/25 06/03/25 06/04/25 23:59 23:59 23:59 Intake Total 305 / 305 940 / 940 300 / 300 Balance 305 / 305 940 / 940 300 / 300 Lab / Micro Data 06/04/25 13:45 06/02/25 10:45 Labs: Laboratory Results - last 24 hr 06/04/25 08:52: POC Glucose 140 H 06/04/25 13:45: WBC 6.3, RBC 3.30 L, Hgb 10.2 L, Hct 31.4 L, MCV 95.2, MCH 30.9,MCHC 32.5, RDW Std Deviation 47.6 H, RDW Coeff of Edita 13.6, Plt Count 232, MPV 10.2, Immature Gran % (Auto) 0.200, Neut % (Auto) 64.7, Lymph % (Auto) 25.1, [place] % (Auto) 8.2, Eos % (Auto) 1.3, Baso % (Auto) 0.5, Absolute Neuts (auto) 4.1, Absolute Lymphs (auto) 1.59, Nucleated RBC % 0 Micro: Microbiology 06/02/25 13:40 Blood Culture (Wb) - Right Hand Blood Culture - Preliminary No growth in 48 hours. 06/02/25 13:42 Blood Culture (Wb) - Anticubital Right Blood Culture - Preliminary No growth in 48 hours. 06/02/25 14:13 Mucosa - Nasopharyngeal Respiratory Panel (PCR) - Final 06/02/25 13:03 Mucosa - Nose SARS-CoV-2, Influenza & RSV (PCR) - Final Physical Exam Narrative alert and no apparent distress Constitutional Narrative: Patient appears disheveled and does not carry on a conversation with this examiner, she does follow commands. General Appearance: cooperative and well developed Orientation / Consciousness: awake [...] noted General Skin Exam: no breakdown Neuro CN's II-XII intact bilaterally, moves all extremities, no focal motor deficits and no sensory deficits noted Sensorium / Orientation: awake, alert, oriented to person and oriented to place Speech: speech normal Psych Psych Narrative: Patient has flat affect, he does not readily carry on conversations with this examiner Assessment & Plan Assessment/Plan (1) Pneumonia: (2) Dyspnea: PLAN: Plan 1. Community-acquired pneumonia-patient's chest CTA shows groundglass appearance into the areas of the right lung in particular. It is hard to determine whether this is pneumonia-she has a normal white blood cell count and is not having any symptoms of cough, fever, or chills. I have elected to continue her IV Zithromax and Rocephin #2 elevated beta natruretic peptide-possible mild congestive heart failure-I decided to stop the patient's IV Lasix due to her hypotension #3 hypoxia secondary to #1 #2-pulse ox will be monitored #4 Type 2 diabetes-patient will be placed on 1800-calorie diet, I do not feel the patient needs to be monitored with fingerstick blood sugars at this time, she is only on metformin. #5 cerebral palsy-complicates care, management, recovery, and prognosis #6 chronic abdominal pain/irritable bowel syndrome/history of ischemic colitis Armando not feel the patient needs a workup for her complaints of abdominal pain, this seems to be a chronic problem #7 chronic anxiety/depression-patient will remain on her outpatient medications. Total clinical time spent by myself addressing the patient's medical issues, reviewing all of her data, and collaborating with the patient's care team: 35 minutes Charges/Coding Visit Charges Inpatient E&M: 61444 Subs Hosp L2 06/04/25 6596 <Electronically signed by Ben Johnson DO> Cosigner Signature (if applicable): CC: ~ Signed [facility] Work Phone: 1([phone]) 349-643807-13-2025 Progress note Author Ben Johnson [facility] Note Date/Time June 03, 2025 4:12 pm [facility] Medical Records Department [address] [place] [address] Progress Note - Hospitalist 06/03/25 1610 MR#: [id number] Acct: [id number] Name: MANSI CARO Rep #:[id number] 76 : 1955 70 From: Ben Johnson DO PCP: Marci Nuñez DO Status:ADM I N Location: [place] [address] Subjective Subjective Patient's white blood cell count today remains normal, her hemoglobin did drop to 9.5. I will repeat the patient's CBC tomorrow patient was seen and examined today, she answers simple questions appropriately but appears lethargic. She awakens easily to stimulation and again answer simple questions. Objective Data Objective Data Vital Signs: Vital Signs Temp Pulse Resp BP Pulse Ox O2 Del Method O2 Flow Rate 98.2 F 78 18 119/102 H 96 Nasal Cannula 2 06/03/25 08:38 06/03/25 08:38 06/03/25 08:38 06/03/25 08:38 06/03/25 08:38 06/03/25 09:00 06/03/25 09:00 Oxygen Flow Rate (L/min) 2 Oxygen Delivery Method Nasal Cannula Weight: 58.2 kg Body Mass Index (BMI) 19.5 Intake & Output: Intake and Output for Last 24 Hours 06/01/25 06/02/25 06/03/25 23:59 23:59 23:59 Intake Total 305 / 305 620 / 620 Balance 305 / 305 620 / 620 Lab / Micro Data 06/03/25 06:35 06/02/25 10:45 Labs: Laboratory Results - last 24 hr 06/03/25 06:35: WBC 7.1, RBC 3.11 L, Hgb 9.5 L, Hct 29.0 L, MCV 93.2, MCH 30.5, MCHC 32.8, RDW Std Deviation 46.3 H, RDW Coeff of Edita 13.6, Plt Count 203, MPV 10.1, Immature Gran % (Auto) 0.100, Neut % (Auto) 66.4, Lymph % (Auto) 19.2, [place] % (Auto) 12.4 H, Eos % (Auto) 1.6, Baso % (Auto) 0.3, Absolute Neuts (auto) 4.7, Absolute Lymphs (auto) 1.36, Nucleated RBC % 0 Micro: Microbiology 06/02/25 14:13 Mucosa - Nasopharyngeal Respiratory Panel (PCR) - Final 06/02/25 13:03 Mucosa - Nose SARS-CoV-2, Influenza & RSV (PCR) - Final Physical Exam Narrative alert and no apparent distress Constitutional Narrative: Patient appears disheveled and does not carry on a conversation with this examiner, she does follow commands. General Appearance: cooperative and well developed Orientation / Consciousness: awake [...] noted General Skin Exam: no breakdown Neuro CN's II-XII intact bilaterally, moves all extremities, no focal motor deficits and no sensory deficits noted Sensorium / Orientation: awake, alert, oriented to person and oriented to place Speech: speech normal Psych Psych Narrative: Patient has flat affect, he does not readily carry on conversations with this examiner Assessment & Plan Assessment/Plan (1) Pneumonia: (2) Dyspnea: PLAN: Plan 1. Community-acquired pneumonia-patient's chest CTA shows groundglass appearance into the areas of the right lung in particular. It is hard to determine whether this is pneumonia-she has a normal white blood cell count and is not having any symptoms of cough, fever, or chills. I have elected to continue her IV Zithromax and Rocephin #2 elevated beta natruretic peptide-possible mild congestive heart failure- patient is currently receiving a small dose of IV Lasix twice a day #3 hypoxia secondary to #1 #2-pulse ox will be monitored #4 Beatties-patient will be placed on 1800-calorie diet, I do not feel the patient needs to be monitored with fingerstick blood sugars at this time, she isonly on metformin. #5 cerebral palsy-complicates care, management, recovery, and prognosis #6 chronic abdominal pain/irritable bowel syndrome/history of ischemic colitis Armando not feel the patient needs a workup for her complaints of abdominal pain, this seems to be a chronic problem #7 chronic anxiety/depression-patient will remain on her outpatient medications. Total clinical time spent by myself addressing the patient's medical issues, reviewing all of her data, and collaborating with the patient's care team: 35 minutes Charges/Coding Visit Charges Inpatient E&M: 09638 Subs Hosp L2 06/03/25 1612 <Electronically signed by Ben Johnson DO> Cosigner Signature (if applicable): CC: ~ Signed [facility] Work Phone: 1(752) 344-422707-12-2025 Discharge summary Author Bossman Sanders [facility] Note Date/Time June 02, 2025 9:07 pm [facility] Medical Records Department [address] [place] [address] Emergency Department Summary 06/02/25 MR#: [id number] Acct: [id number] Name: MANSI CARO Rep #:[id number] 17 : 1955 70 From: Bossman Sanders DO PCP: Marci Nuñez DO Status:ADM I N Location: [place] [address] HPI History of Present Illness Chief Complaint: Shortness of Breath Detail of Chief Complaint: Shortness of breath and abdominal pain Informant: patient and spouse/S.O. Narrative Narrative: Patient presents to the emergency department complaining of shortness of breath and abdominal pain. She was seen by her primary care physician 2 days ago and had a D-dimer obtained that was elevated. Apparently was scheduled to have an outpatient CTA of her chest to rule out PE however this morning checked her pulse ox and it was 82% so presents to the ER for evaluation. Patient denies any chest pain. She denies recent travel or surgery. She has had issueswith blood in her stool for 6 to 8 weeks and has had upper and lower scopes. She continues complain of some abdominal pain and does have history of ischemic colitis. 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 Patient with prior history ofstroke and has history of a pacer defibrillator. Currently on aspirin and used to be on Plavix but states she is not currently taking that. Patient also states she has had a hard time swallowing and nothing tastes good. Intermittent nausea and vomiting PFSH PFS Medical History Back pain History of Holter [...] (patent foramen ovale) Cardiac resynchronization therapy defibrillator (MILL OPERATOR HEAD-D) in place Myocarditis Hyperlipidemia Hypertension Home Medications ?Medication ?Instructions ?Recorded ?Last Taken ?Type clonazepam 1 mg tablet 1 mg PO QHS anxiety 11/18/14 06/01/25 History trazodone 50 mg tablet 50 mg PO DAILY Anxiety 11/1806/01/25 History aspirin 81 mg tablet,delayed 81 mg PO .COMPLEX heart 1 12/01/22 06/01/25 History release rosuvastatin 20 mg tablet 20 mg PO QHS cholesterol 12/1506/01/25 History furosemide 20 mg tablet 20 mg PO QDAY PRN for 2lb we ight 06/13/24 06/19/24 History gain escitalopram oxalate 5 mg tablet 5 mg PO QDAY Mood 06/1506/01/25 History polyethylene glycol 3350 17 17 g PO DAILY Constipation 11/28/24 06/01/25 History gram/dose oral powder (Miralax) lamotrigine 100 mg tablet 100 mg PO QDAY Anxiety 01/2306/02/25 History ferrous sulfate 325 mg (65 mg 325 mg PO QDAY Supplemen t 02/13/25 06/01/25 History iron) tablet (Feosol) linaclotide 145 mcg capsule 145 mcg PO QAM Constipatio n #60 02/14/25 Unknown Rx (Linzess) caps hyoscyamine sulfate 0.125 mg tablet 0.125 mg PO TID LA N dyspepsia #90 03/05/25 06/02/25 Rx tabs deutetrabenazine 6 mg 6 mg PO DAILY involuntary Mo vements 04/19/25 04/20/25 08:50 History tablet,extended release 24 hr (Austedo XR) oxycodone 5 mg tablet 5 mg PO Q6H PRN PRN Pain Sco re 04/30/25 Unknown Rx 6-10 7 days #28 tabs pantoprazole 40 mg tablet,delayed 40 mg PO DAILY 30 da ys #30 tabs 04/30/25 06/01/25 Rx release baclofen 5 mg tablet 5 mg PO DAILY SPASCITY 05/2906/01/25 History docusate sodium 100 mg capsule 100 mg PO DAILY CONSTIP ATION 05/29/25 Unknown History metformin 500 mg tablet 500 mg PO BID Diabetes 05/2906/01/25 History ondansetron 4 mg disintegrating 4 mg PO Q8H #30 tabs 0 05/30/25 06/01/25 Rx tablet phenazopyridine 100 mg tablet 100 mg PO TID PRN PRN pa in 06/02/25 06/02/25 History Allergy/AdvReac Type Severity Reaction Status Date / Time No Known Allergies Allergy Verified 06/02/25 10:33 Family History Father Heart disease Myocardial infarction [...] social history: - Song FUENTES ROS ED Review of Systems ROS Unobtainable: other Constitutional Constitutional ED: Reports lethargy; Denies chills, fever(s), sweats or weight loss Eyes Eyes: Denies blurry vision, change in vision or diplopia ENT ENT ED: Denies rhinorrhea or sore throat Cardiovascular Cardiovascular: Reports chest pain and racing heartbeat; Denies orthopnea Respiratory/Chest Respiratory/Chest: Reports cough, dyspnea and dyspnea on exertion; Denies orthopnea or sputum Gastrointestinal Gastrointestinal: Reports abdominal pain, nausea, vomiting and other Details: Black stool ; Denies diarrhea Genitourinary Genitourinary ED: Denies dysuria, hematuria or urinary frequency Musculoskeletal Musculoskeletal: Denies arthralgias, back pain, myalgias or neck pain Integumentary Denies abscess, Abrasions or rash Neurologic Neurologic: Denies headache(s) or weakness Psychiatric Psychiatric: Denies anxiety, depression or suicidal thoughts Endocrine Endocrinology: Denies polydipsia, polyphagia or polyuria Hematologic/Lymphatic Hematologic/Lymphatic: Denies easy bleeding, easy bruising or lymphadenopathy Allergic/Immunologic Allergic/Immunologic ED: Denies mouth swelling, tongue swelling or urticaria EXAM Physical Exam Const Vital Signs: 06/02/25 10:33 06/02/25 10:35 06/02/25 10:35 Temperature 97.0 F L 97.5 F L Temperature Source Temporal Oral Pulse Rate 102 H 87 Respiratory Rate 18 20 H Respiratory Effort Short of Breath Respiratory Depth Normal Respiratory Pattern Normal Blood Pressure 76/59 L 114/61 Blood Pressure Mean 64 78 Pulse Ox 93 95 Oxygen Delivery Method Room Air Room Air Nasal Cannula Oxygen Flow Rate (L/min) 2 06/02/25 11:35 06/02/25 11:35 Temperature 98.7 F Temperature Source Oral Pulse Rate 78 78 Respiratory Rate 18 18 Respiratory Effort Respiratory Depth Respiratory Pattern Blood Pressure 104/55 L 104/78 Blood Pressure Mean 71 86 Pulse Ox 95 94 Oxygen Delivery Method Nasal Cannula Nasal Cannula Oxygen Flow Rate (L/min) 2 2 MDM MDM MDM Narrative Medical decision making narrative: Patient presents with dyspnea and cough ongoing for 3 weeks. 2 days ago had COVID testing at home that was negative. Had blood work done in the office and had an elevated D-dimer so presents for CTA of her chest. states her O2sat at home was 82% this morning and she typically does not use home O2. Patient denies any chest pain. In the differential would be PE versus pneumoniaor less likely pneumothorax. IV line established. CBC with differential obtained showed white count of 9.0 with hemoglobin 11.2 and platelet count of 230. Chemistries unremarkable. Lactate normal at 1.3. LFTs were normal. 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 Lipase was normal. CTA of chest abdomen pelvis obtained showed inflammatory changes in the right middle and lower lobes as well as left lower lobe concerning for pneumonitis/pneumonia. Patient did have blood cultures ordered. She was started on Rocephin and Zithromax IV. I did ambulatepatient in the department and her O2 sat dropped down to 86% on room air. Case will be discussed with hospitalist to evaluate patient for admission. Patient also has been complaining of vomiting when attempting to eat and states nothing tastes good. 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 Lab Data Attestation: I reviewed the patient's lab results. Labs: Laboratory Results - last 24 hr 06/02/25 06/02/25 10:45 11:08 WBC 9.0 RBC 3.66 L Hgb 11.2 L Hct 34.6 L MCV 94.5 MCH 30.6 MCHC 32.4 RDW Std Deviation 46.7 H RDW Coeff of Edita 13.4 Plt Count 230 MPV 10.0 Sodium 137 Potassium 3.8 Chloride 102 Carbon Dioxide 24.0 Anion Gap 11 BUN 19 Creatinine 1.16 Estim Creat Clear Calc 42.38 L Est GFR (MDRD) Non-Af 50 L BUN/Creatinine Ratio 16.6 Glucose 140 H Lactic Acid 1.3 Calcium 8.7 Total Bilirubin 0.27 AST 24 ALT 6 Alkaline Phosphatase 70 NT pro BNP II 948 H Total Protein 6.9 Albumin 3.1 L Globulin 3.8 Albumin/Globulin Ratio 0.8 L Lipase 15 Radiography Diagnostic Testing: Clinical Impression(s) from Imaging Studies Chest/Abdomen/Pelvis CTA 06/02/25 10:55 IMPRESSION: Visualization of visceral organs is limited by coronal and sagittal MIP imaging. CTA chest: 1. Increased ground-glass opacities within the right middle and lower lobes, as well as left lower lobe tree-in-bud opacities, compatible with pneumonitis/pneumonia. 2. No traumatic thoracic aortic injury. CTA abdomen pelvis: No change since prior examination. Reading Location: [facility] [facility] E[facility] Initial EKG: Attestation: I personally reviewed and interpreted this EKG as follows: Comments: Paced rhythm with ventricular rate of 81 bpm Discharge Plan Triage Chief Complaint: Shortness of Breath ED Provider: Bossman Sanders Dx/Rx/DC Orders Clinical Impression: Dyspnea, Hypoxia, Pneumonia Prescriptions: No Action furosemide 20 mg tablet 20 mg PO QDAY PRN (Reason: for 2lb weight gain) metformin 500 mg tablet 500 mg PO BID lamotrigine 100 mg tablet 100 mg PO QDAY escitalopram oxalate 5 mg tablet 5 mg PO QDAY polyethylene glycol 3350 [Miralax] 17 gram/dose powder 17 g PO DAILY docusate sodium 100 mg capsule 100 mg PO DAILY Patient Comments: stopped 05/30/25 baclofen 5 mg tablet 5 mg PO DAILY Patient Comments: PRESCRIPTION FOR 4 TIMES DAILY ferrous sulfate [Feosol] 325 mg (65 mg iron) tablet 325 mg PO QDAY Linzess 145 mcg capsule 145 mcg PO QAM Qty: 60 2RF Patient Comments: stopped 05/30/25 ondansetron 4 mg tablet,disintegrating 4 mg PO Q8H Qty: 30 3RF trazodone 50 MG tablet 50 mg PO DAILY clonazepam 1 MG tablet 1 mg PO QHS aspirin 81 mg tablet,delayed release (DR/EC) 81 [...] release 24 hr 6 mg PO DAILY Patient Comments: stopped 06/02/25 phenazopyridine 100 mg tablet 100 mg PO TID PRN PRN (Reason: pain) hyoscyamine sulfate 0.125 mg tablet 0.125 mg PO TID PRN (Reason: dyspepsia) Qty: 90 2RF Primary Care Provider: Marci Nuñez Referrals: Marci Nuñez DO [Primary Care Provider] - Print Language: Togolese Disposition Disposition: Acute Care Hospital [facility] What to do if you have Problems For any increased pain, shortness of breath, bleeding, nausea or vomiting, chestpain, or any unexpected problems, contact your Primary Care Provider. Call [facility] ([phone]) or report to the closest Emergency Room. Call 911 if necessary. 06/02/252106 <Electronically signed by Bossman Sanders DO> Cosigner Signature (if applicable): CC: Marci Nuñez DO ~ Signed [facility] Work Phone: 1(877) 955-336507-12-2025 History and physical note Author Ben Paulinoaitkin hospitalesther [facility] Note Date/Time June 02, 2025 6:33 pm [facility] Medical Records Department [address] [place] [address] H&P Exam - Hospitalist 06/02/25 1801 MR#: [id number] Acct: [id number] Name: MANSI CARO Rep #:[id number] : 1955 70 From: Ben Johnson DO PCP: Marci Nuñez DO Status:ADM I N Location: [place] [address] HPI - General General Date of Admission: 06/02/25 Date of Service: 06/02/25 HPI Narrative MANSI CARO, is a 70 F who presents to the emergency room at [facility] after her physician sent her in due to an elevated D-dimer that he had collected as an outpatient. Patient also complained of shortness of breath, abdominal pain, and nausea. Complaints of abdominal pain and nausea were not new to this patient. She had recently undergone an EGD which did not show any abnormality except for a mild stenosis in the duodenum which was biopsied. Patient has a history of irritable bowel syndrome and ischemic colitis. Workup in the emergency room included a CTA of the chest which showed increased groundglass opacities within the right middle and lower lobes as well as left lower lobe tree-in-bud opacities compatible with pneumonitis or pneumonia. No evidence of pulmonary embolism was noted. CTA of the abdomen and pelvis showed no changes from her previous abdominal and pelvic CTA done on 05/22/2025 which showed no acute pathology. White blood cell count was normal at 9, hemoglobin was 11.2, and chemistry profile was unremarkable. Beta natruretic peptide was elevated at 948. Due to the patient's abnormal CT of the chest, it was felt that the patient probably had pneumonia. 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 Patient will be admitted to PCU for community-acquired pneumonia and diastolic congestive heart failure, I will place her on low-dose IV Lasix and she will receive IV Rocephin and Zithromax. Patient is on multiple psychiatric medications, she also has a history of cerebral palsy. [facility] Medical History Back pain History of Holter [...] (patent foramen ovale) Cardiac resynchronization therapy defibrillator (MILL OPERATOR HEAD-D) in place Myocarditis Hyperlipidemia Hypertension Home Medications ?Medication ?Instructions ?Recorded ?Last Taken ?Type clonazepam 1 mg tablet 1 mg PO QHS anxiety 11/18/14 06/01/25 History trazodone 50 mg tablet 50 mg PO DAILY Anxiety 11/1806/01/25 History aspirin 81 mg tablet,delayed 81 mg PO .COMPLEX heart 1 12/01/22 06/01/25 History release rosuvastatin 20 mg tablet 20 mg PO QHS cholesterol 12/1506/01/25 History furosemide 20 mg tablet 20 mg PO QDAY PRN for 2lb we ight 06/13/24 06/19/24 History gain escitalopram oxalate 5 mg tablet 5 mg PO QDAY Mood 06/1506/01/25 History polyethylene glycol 3350 17 17 g PO DAILY Constipation 11/28/24 06/01/25 History gram/dose oral powder (Miralax) lamotrigine 100 mg tablet 100 mg PO QDAY Anxiety 01/2306/02/25 History ferrous sulfate 325 mg (65 mg 325 mg PO QDAY Supplemen t 02/13/25 06/01/25 History iron) tablet (Feosol) linaclotide 145 mcg capsule 145 mcg PO QAM Constipatio n #60 02/14/25 Unknown Rx (Linzess) caps hyoscyamine sulfate 0.125 mg tablet 0.125 mg PO TID LA N dyspepsia #90 03/05/25 06/02/25 Rx tabs deutetrabenazine 6 mg 6 mg PO DAILY involuntary Mo vements 04/19/25 04/20/25 08:50 History tablet,extended release 24 hr (Austedo XR) oxycodone 5 mg tablet 5 mg PO Q6H PRN PRN Pain Sco re 04/30/25 Unknown Rx 6-10 7 days #28 tabs pantoprazole 40 mg tablet,delayed 40 mg PO DAILY 30 da ys #30 tabs 04/30/25 06/01/25 Rx release baclofen 5 mg tablet 5 mg PO DAILY SPASCITY 05/2906/01/25 History docusate sodium 100 mg capsule 100 mg PO DAILY CONSTIP ATION 05/29/25 Unknown History metformin 500 mg tablet 500 mg PO BID Diabetes 05/2906/01/25 History ondansetron 4 mg disintegrating 4 mg PO Q8H #30 tabs 0 05/30/25 06/01/25 Rx tablet phenazopyridine 100 mg tablet 100 mg PO TID PRN PRN pa in 06/02/25 06/02/25 History Allergy/AdvReac Type Severity Reaction Status Date / Time No Known Allergies Allergy Verified 06/02/25 10:33 Family History Father Heart disease Myocardial infarction [...] Yes additional social history: - Song FUENTES Narrative Review of systems was difficult to obtain from the patient due to the patient's psychiatric problems and her cerebral palsy, she is a poor informant. Information was obtained from the who is present at the time of my examination. Vital Signs Vital Signs Vital Signs: 06/02/25 10:33 06/02/25 10:35 06/02/25 10:35 Temperature 97.0 F L 97.5 F L Temperature Source Temporal Oral Pulse Rate 102 H 87 Respiratory Rate 18 20 H Respiratory Effort Short of Breath Respiratory Depth Normal Respiratory Pattern Normal Blood Pressure 76/59 L 114/61 Blood Pressure Mean 64 78 Pulse Ox 93 95 Oxygen Delivery Method Room Air Room Air Nasal Cannula Oxygen Flow Rate (L/min) 2 06/02/25 10:53 06/02/25 11:00 06/02/25 11:15 Temperature Temperature Source Pulse Rate 85 120 H Respiratory Rate 18 28 H Respiratory Effort Respiratory Depth Respiratory Pattern Blood Pressure 94/66 107/51 L Blood Pressure Mean 76 69 Pulse Ox 97 98 Oxygen Delivery Method Oxygen Flow Rate (L/min) 06/02/25 11:35 06/02/25 11:35 06/02/25 12:00 Temperature 98.7 F Temperature Source Oral Pulse Rate 78 78 Respiratory Rate 18 18 Respiratory Effort Respiratory Depth Respiratory Pattern Blood Pressure 104/55 L 104/78 104/55 L Blood Pressure Mean 71 86 71 Pulse Ox 95 94 98 Oxygen Delivery Method Nasal Cannula Nasal Cannula Oxygen Flow Rate (L/min) 2 2 06/02/25 12:15 06/02/25 12:30 06/02/25 12:45 Temperature Temperature Source Pulse Rate 71 64 72 Respiratory Rate 16 28 H 21 H Respiratory Effort Respiratory Depth Respiratory Pattern Blood Pressure 111/47 L 117/49 L 106/56 L Blood Pressure Mean 67 70 72 Pulse Ox 98 98 98 Oxygen Delivery Method Oxygen Flow Rate (L/min) 06/02/25 13:00 06/02/25 13:00 06/02/25 13:11 Temperature 98.4 F Temperature Source Oral Pulse Rate 86 66 71 Respiratory Rate 19 H 26 H 16 Respiratory Effort Respiratory Depth Respiratory Pattern Blood Pressure 110/53 L 110/53 L 116/52 L Blood Pressure Mean 72 71 68 Pulse Ox 94 99 97 Oxygen Delivery Method Nasal Cannula Nasal Cannula Oxygen Flow Rate (L/min) 2 2 06/02/25 13:15 06/02/25 13:46 06/02/25 14:00 Temperature 98.4 F 98.4 F Temperature Source Oral Pulse Rate 132 H 73 69 Respiratory Rate 27 H 18 12 Respiratory Effort Respiratory Depth Respiratory Pattern Blood Pressure 100/53 L 106/54 L 106/53 L Blood Pressure Mean 61 71 70 Pulse Ox 96 95 96 Oxygen Delivery Method Nasal Cannula Oxygen Flow Rate (L/min) 2 06/02/25 14:09 06/02/25 14:33 06/02/25 15:18 Temperature 98.4 F Temperature Source Oral Pulse Rate 64 Respiratory Rate 16 Respiratory Effort Respiratory Depth Respiratory Pattern Blood Pressure 108/60 Blood Pressure Mean 76 Pulse Ox 97 98 Oxygen Delivery Method Nasal Cannula Nasal Cannula Nasal Cannula Oxygen Flow Rate (L/min) 2 2 2 Weight Weight: 58.2 kg Body Mass Index (BMI) 19.5 Physical Exam Const alert and no apparent distress Constitutional Narrative: Patient appears disheveled and does not carry on a conversation with this examiner, she does follow commands. General Appearance: cooperative and well developed Orientation / Consciousness: awake [...] noted General Skin Exam: no breakdown Neuro CN's II-XII intact bilaterally, moves all extremities, no focal motor deficits and no sensory deficits noted Sensorium / Orientation: awake, alert, oriented to person and oriented to place Speech: speech normal Psych Psych Narrative: Patient has flat affect, he does not readily carry on conversations with this examiner Results Lab / Micro Data 06/02/25 10:45 06/02/25 10:45 Labs: Laboratory Results - last 24 hr 06/02/25 10:45: WBC 9.0, RBC 3.66 L, Hgb 11.2 L, Hct 34.6 L, MCV 94.5, MCH 30.6,MCHC 32.4, RDW Std Deviation 46.7 H, RDW Coeff of Edita 13.4, Plt Count 230, MPV 10.0, Sodium 137, Potassium 3.8, Chloride 102, Carbon Dioxide 24.0, Anion Gap 11, BUN 19, Creatinine 1.16, Estim Creat Clear Calc 42.38 L, Est GFR (MDRD) Non-Af 50 L, BUN/Creatinine Ratio 16.6, Glucose 140 H, Calcium 8.7, Total Bilirubin 0.27, AST 24, ALT 6, Alkaline Phosphatase 70, NT pro BNP II 948 H, Total Protein6.9, Albumin 3.1 L, Globulin 3.8, Albumin/Globulin Ratio 0.8 L, Lipase 15 06/02/25 11:08: Lactic Acid 1.3 Micro: Microbiology 06/02/25 13:03 Mucosa - Nose SARS-CoV-2, Influenza & RSV (PCR) - Final Imaging Radiology Impression Chest/Abdomen/Pelvis CTA 06/02/25 10:55 IMPRESSION: Visualization of visceral organs is limited by coronal and sagittal MIP imaging. CTA chest: 1. Increased ground-glass opacities within the right middle and lower lobes, as well as left lower lobe tree-in-bud opacities, compatible with pneumonitis/pneumonia. 2. No traumatic thoracic aortic injury. CTA abdomen pelvis: No change since prior examination. Reading Location: [place] Assessment & Plan Assessment/Plan (1) Dyspnea: PLAN: Plan 1. Community-acquired pneumonia-patient's chest CTA shows groundglass appearance into the areas of the right lung in particular. It is hard to determine whether this is pneumonia-she has a normal white blood cell count and is not having any symptoms of cough, fever, or chills. I have elected to treat the patient with IV Zithromax and Rocephin. #2 elevated beta natruretic peptide-possible mild congestive heart failure-I have elected to place the patient on a small dose of IV Lasix twice a day to seeif this would improve her oxygenation. She has a history of nonischemic dilatedcardiomyopathy in the past and has an ICD. #3 hypoxia secondary to #1 #2-pulse ox will be monitored #4 Beatties-patient will be placed on 1800-calorie diet, I do not feel the patient needs to be monitored with fingerstick blood sugars at this time, she isonly on metformin. #5 cerebral palsy-complicates care, management, recovery, and prognosis #6 chronic abdominal pain/irritable bowel syndrome/history of ischemic colitis Armando not feel the patient needs a workup for her complaints of abdominal pain, this seems to be a chronic problem #7 chronic anxiety/depression-patient will remain on her outpatient medications. Total clinical time spent by myself addressing the patient's medical issues, reviewing all of her data, and collaborating with the patient's care team: 75 minutes Charges/Coding Visit Charges Inpatient E&M: 60655 Init Hosp L3 06/02/25 1833 <Electronically signed by Ben Johnson DO> Cosigner Signature (if applicable): CC: Dr. Ben Johnson, DO; Marci Nuñez DO~ Signed [facility] Work Phone: 1(865) 808-808907-12-2025 Telephone encounter Note* Telephone Encounter - Donna Vail RN - 06/02/2025 3:16 PM EDT S: Song called the clinical access center B: He called to report Mansi was admitted to the hospital today A: He wanted to thank Dr. Nuñez for her advice. R: She is admitted at [facility]. Patient instructed to call back with worsening symptoms, concerns or questions. [id number] Miscellaneous Notes* Telephone Encounter - Donna Vail RN - 06/02/2025 3:16 PM EDT S: Song called the clinical access center B: He called to report Mansi was admitted to the hospital today A: He wanted to thank Dr. Nuñez for her advice. R: She is admitted at [facility]. Patient instructed to call back with worsening symptoms, concerns or questions. documented in this encounterSFirelands Regional Medical [id number] Radiology Diagnostic study [facility]07-12-2025 Telephone encounter Note* Telephone Encounter - Paige Vick - 06/02/2025 10:28 AM EDT Name of caller requesting page: Song Phone Number of caller: [phone] Facility requesting page: The patient Spouse Reason for Page: The patient states he is taking the patient to [facility] right now [er Dr. Nuñez orders. The patient O2 level this morning was 83 and her temperature is 99.1. Provider paged: Antonio Clay MD Practice Name of paged provider: [facility] Page Placed to #: Secure chat Time Page was sent or provider contacted: 10:35 am Page Content: PAGE: The patient Song, ; PT. Taylor Caro; The patient states he is taking the patient to [facility] right now per Dr. Nuñez orders. The patient O2 level this morning was 83 and her temperature is 99.1. Please call the patient to advise. [facility] [id number] Miscellaneous Notes* Telephone Encounter - Paige Vick - 06/02/2025 10:28 AM EDT Name of caller requesting page: Song Phone Number of caller: [phone] Facility requesting page: The patient Spouse Reason for Page: The patient states he is taking the patient to [facility] right now [er Dr. Nuñez orders. The patient O2 level this morning was 83 and her temperature is 99.1. Provider paged: Antonio Clay MD Practice Name of paged provider: [facility] Page Placed to #: Secure chat Time Page was sent or provider contacted: 10:35 am Page Content: PAGE: The patient Song, ; PTZeke Caro; The patient states he is taking the patient to [facility] right now per Dr. Nuñez orders. The patient O2 level this morning was 83 and her temperature is 99.1. Please call the patient to advise. documented in this [facility]07-01-2025 Radiology Diagnostic study [facility]07-01-2025 Discharge summary Author Fazal Heller [facility] Note Date/Time May 22, 2025 8:43p m [facility] Medical Records Department [address] [place] [address] Emergency Department Summary 05/22/25 MR#: [id number] Acct: [id number] Name: MIKHAILMANSI GILBERT Rep #:[id number] : 1955 70 From: Fazal Heller DO PCP: Marci Nuñez DO Status:REG E R Location: ED HPI [...] been having GI bleed in the past. [facility] Medical History Back pain History of Holter [...] (patent foramen ovale) Cardiac resynchronization therapy defibrillator (MILL OPERATOR HEAD-D) in place Myocarditis Hyperlipidemia Hypertension Home Medications [...] 0.125 mg tablet 0.125 mg PO TID LA N dyspepsia #90 03/05/25 Unknown Rx tabs [...] social history: - Song ROS ROS ED ROS Narrative Constitutional: Denies any [...] following commands knew that she was at [facility] years 2024 Skin: Warm, dry, intact no [...] Lymph % (Auto) 16.2 L 17.5 L [place] % (Auto) 10.4 H 12.5 H Eos [...] Sl. Cloudy Urine pH 7.0 Ur Specific [place] 1.005 Urine Protein 30 H Urine Glucose [...] Colonic diverticulosis. Atherosclerosis as above. Reading Location: [place] [address] Discharge Plan Triage Chief Complaint: Abd Pain [...] Marci Nuñez DO [Primary Care Provider] - Activity Restrictions/Additional Instructions: Follow-up your doctor in outpatient setting. Take antibiotics for your urinary tract infection as prescribed use other antibiotics as prescribed as well. Return with worsening symptoms or any concerns. Follow-up and urine culture with your doctor. Print Language: Togolese Disposition Disposition: Home, Self Care What to do if you have Problems For any increased pain, shortness of breath, bleeding, nausea or vomiting, chestpain, or any unexpected problems, contact your Primary Care Provider. Call [facility] ([phone]) or report to the closest Emergency Room. Call 911 if necessary. 05/22/252042 <Electronically signed by Fazal Heller DO> Cosigner Signature (if applicable): CC: Marci Nuñez DO ~ Signed [facility] Work Phone: 1(617) 162-288606-30-2025 NoteHNO ID: [id number] Author: DONOVAN LOUISE RPh Service: ? Author [...] been reviewed prior to dispensing the medication. 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 [facility] RX SPECIALTY CLINICAL ASSESSMENT - NEUROLOGY V7: [...] and monitor patients closely (more content not included)...[facility]06-09-2025 Discharge summary Author Alonso Marte [facility] Note Date/Time April 30, 2025 7:13p [facility] Medical Records Department [address] [place] [address] Discharge Summary 04/30/25 1901 MR#: [id number] Acct: [id number] Name: MANSI CARO Rep #:[id number] : 1955 70 From: Alonso Marte MD PCP: Marci Nuñez DO Status:ADM I N Location: [place] [address] Providers Date of Admission: 04/20/25 Primary Care Physician: Dr. Marci Nuñez DO Reason For Visit: GENERALIZED WEAKNESS Diagnosis [...] ___x_ GRD contraindicated. 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 The following psychotropic medication was present [...] __x__ GRD contraindicated. Reason contraindicated: stable chronic prison use. The following psychotropic medication was present [...] __x__ GRD contraindicated. Reason contraindicated: stable chronic prison use. Medications at Discharge Home Medications clonazepam [...] ileum was normal. Discharge home with 05/03/2025, [facility] PT. Physical Exam Const alert General [...] % (Auto) 55.4, Lymph % (Auto) 28.3, [place] % (Auto) 10.9 H, Eos % (Auto) [...] Alonso Marte Chi Primary Care Provider: Marci Nuñez Instructions Additional Instructions / Restrictions: Discharge home [...] severe pain) Referrals / Follow Up: Marci Nuñez DO [Primary Care Provider] - Friend,DO Shan [Med Staff - Active Staff] - Within 1 Month (Colitis.) Disposition Disposition (needs filled in before D/C Order can be placed): Home, Self Care 04/30/251912 <Electronically signed by Alonso Marte MD> Cosigner Signature (if applicable): CC: Dr. Alonso Marte MD; Marci Nuñez DO~ Signed [facility] Work Phone: 1(507) 535-719806-09-2025 Discharge summary [facility] Medical Records Department [address] [place] [address] Discharge Summary 04/30/251900 MR#: [id number] Acct: [id number] Name: MANSI CARO Rep #:[id number] : 1955 70 From: Alonso Marte MD PCP: Marci Nuñez DO Status:ADM I N Location: [place] [address] Providers Date of Admission: 04/20/25 Primary Care Physician: Dr. Marci Nuñez DO Reason For Visit: GENERALIZED WEAKNESS Diagnosis [...] ___x_ GRD contraindicated. Reason contraindicated: stable chronic prison use. The following psychotropic medication was present [...] __x__ GRD contraindicated. 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 The following psychotropic medication was present [...] __x__ GRD contraindicated. 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 Medications at Discharge Home Medications clonazepam [...] ileum was normal. Discharge home with 05/03/2025, [facility] PT. Physical Exam Const alert General [...] Neut% (Auto) 55.4, Lymph % (Auto) 28.3, [place] % (Auto) 10.9 H, Eos % (Auto) [...] Alonso Marte Chi Primary Care Provider: Marci Nuñez Instructions Additional Instructions / Restrictions: Discharge home [...] severe pain) Referrals / Follow Up: Marci Nuñez DO [Primary Care Provider] - Friend,DO Shan [Med Staff - Active Staff] - Within 1 Month (Colitis.) Disposition Disposition (needs filled in before D/C Order can be placed): Home, Self Care 04/30/251912 Cosigner Signature (if applicable): CC: Dr. Alonso Marte MD; Marci Nuñez DO~ Signed [facility]06-09-20[facility] Consult note Author Melanie Muñoz [facility] Note Date/Time April 25, 2025 8:26a m [facility] Medical Records Department [address] [place] [address] Anesthesia Postop Eval II 04/25/25 0823 MR#: [id number] Acct: [id number] Name: MANSI CARO Rep #:[id number] : 1955 70 From: Melanie Muñoz CRNA PCP: Marci Nuñez DO Status:REG S DC Y Race: C Location: [address] Anesthesia Postop Eval I Sum Postop Eval [...] Level: 0 nausea: No Vomiting: No 04/25/25 0878 <Electronically signed by Melanie garrido CRNA> Date _ Melanie Muñoz CRNA Cosigner Signature: Date CC: ~ Signed [facility] Work Phone: 1(532) 124-889706-04-2025 Consult note Author José Miguel Heller [facility] Note Date/Time April 25, 2025 7:57a [facility] Medical Records Department [address] [place] [address] Anesthesia Postop Eval I 04/25/25 0756 MR#: [id number] Acct: [id number] Name: MANSI CARO Rep #:[id number] : 1955 70 From: José Miguel Heller PCP: Marci Nuñez DO Status:REG S DC Y Race: C Location: [place] [address] Anesthesia: Postop Eval I Current Vital Signs [...] Anesthesia document: Postop Eval 1 completed: Yes 04/25/25756 <Electronically signed by José Miguel Heller > Date _ José Miguel Ortizigner Signature: Date CC: ~ Signed [facility] Work Phone: 1(500) 488-546006-04-2025 Consult note Author Palmer [facility] Note Date/Time April 25, 2025 7:06a [facility] Medical Records Department [address] [place] [address] Pre-Anesthesia Evaluation 04/25/25 0701 MR#: [id number] Acct: [id number] Name: MANSI CARO Rep #:[id number] : 1955 70 From: Palmer Gallo MD PCP: Marci Nuñez DO Status:REG S DC Y Race: C Location: [place] [address] ASA Classification* ASA Classification ASA Classification: 4 [...] 04/24/25 TSH 4.050 uIU/mL (0.300-4.200) 04/19/25 03:45 05/2 08/16 COAG PT 13.3 SECONDS (11.7-14.9) 09/09/24 14:50 Pre-Assessment Diagnosis/Proposed Procedure Planned Operative Procedure(s): COLONOSCOPY/EGD Anesthesia History Anesthesia History - assessment expert: Anesthesia History - assessment expert Hx Hospitalization Yes: IN TCU PRESENTLY 04/23/25 [...] take am of surgery PONV PONV - assessment expert: PONV - assessment expert Female Yes 04/23/25 16:09 HX of Motion [...] 04/25/25 06:48 Respiratory Assessment Respiratory Assessment - assessment expert: Respiratory Tract Infection Hx - assessment expert Hx Respiratory Tract Infection No 04/23/25 16:09 STOP Sleep Apnea STOP Sleep Apnea - assessment expert: STOP Sleep Apnea - assessment expert Hx Hypertension Yes: CONTROLLED ON MED 04/23/25 [...] Tobacco Use History Tobacco Use History - assessment expert: Tobacco Use History - assessment expert Tobacco Use Cigarettes 11/13/24 13:46 Smoking Status Former smoker 04/23/25 16:09 Hx Tobacco Use No 04/23/25 16:09 Years Smoking Packs Smoked per Day Smoking Cessation Date was Yes - quit smoking within 15 04/23/25 16:09 within the last 15 years years Hx Smoking Cessation Date 10/06/09 04/23/25 16:09 Hx Smoking Cessation No 04/23/25 16:09 Counseling Hematologic Medial History Hematologic Hx - assessment expert: 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 Hx of Blood Transfusion No 04/23/25 16:09 [...] confused, unrespo /Reproduction History /Reproductive History - assessment expert: /Reproductive Hx- assessment expert Hx Now No 04/23/25 16:09 Gestational Age [...] (patent foramen ovale) Cardiac resynchronization therapy defibrillator (MILL OPERATOR HEAD-D) in place Myocarditis Hyperlipidemia Hypertension Home Medications [...] 400 0.25 % eye 1 drp ophthalmic (santiago ye) .q1hr PRN 01/23/25 Unknown History gel drops (Blink Gel Tears) Dry eyes ferrous sulfate 325 mg (65 mg 325 mg PO QDAY Supplemen t 02/13/25 04/20/25 08:30 History iron) tablet (Feosol) linaclotide 145 mcg capsule 145 mcg PO QAM Constipatio n #60 02/14/25 Unknown Rx (Linzess) caps hyoscyamine sulfate 0.125 mg tablet 0.125 mg PO TID LA N dyspepsia #90 03/05/25 Unknown Rx tabs [...] MD Cosigner Signature: Date CC: ~ Signed [facility] Work Phone: 1(730) 569-428006-04-2025 History and physical note Author Shan Lockett [facility] Note Date/Time April 25, 2025 6:47a m [facility] Medical Records Department [address] [place] [address] History & Physical Exam 04/25/25 0645 MR#: [id number] Acct: [id number] Name: MANSI CARO Rep #:[id number] : 1955 70 From: Shan Lockett DO PCP: Marci Nuñez DO Status:REG S DC Location: [place] [address] HPI - General General Date of Admission: 04/25/25 Date of Service: 04/25/25 Chief Complaint: Anemia and abdominal pain HPI Narrative MANSI CARO, is a 70 F who presents for endoscopic evaluation [facility] established 8.30.34 after hospitalization for bloody diarrhea revealing ischemic colitis. Colonoscopy 8..24; - Preparation of the colon was fair. - Diverticulosis in the recto-sigmoid colon, in the sigmoid colon and in the descending colon. - No specimens collected. Biochemical work up 8..24; hgb 10.2 L, APTT 23.6, Iron 40 L , TIBC 239 Last OV 1.21.25 Pt with continues abd pain and constipation. Taking miralax daily. Pt referred to pain management and women's care. Start Linzess 72 mcg daily. OV 3.26.25; Pt recommended to f/u with GI for FOBT+. Women's care did not believe her pain to be medical csr in nature. She endorses some lower abd pain today. SHe is having a bm every two days while on Linzess 72 mcg and miralax. [facility] Medical History Back pain History of Holter [...] (patent foramen ovale) Cardiac resynchronization therapy defibrillator (MILL OPERATOR HEAD-D) in place Myocarditis Hyperlipidemia Hypertension Home Medications [...] 0.125 mg tablet 0.125 mg PO TID LA N dyspepsia #90 03/05/25 Unknown Rx tabs [...] smokin-1.5 ppd from teen until quit in 2009. alcohol intake: never substance use type: does [...] Cosigner Signature (if applicable): CC: Marci Nuñez DO; Shan Lockett, ~ Signed [facility] Work Phone: 1(743) 278-859206-04-2025 Procedure [facility] 04-25-2025 Procedure [facility]06-04-2025 Procedure note [facility]06-04-2025 Procedure [facility] 04-25-[address] [facility]06-02-2025 History of Present illness Narrative* [...] been reviewed prior to dispensing the medication. Accounting Manager Cpa Assessment Patient confirmed: Yes Med/dose confirmed: Yes Supplies needed: No supplies needed Missed doses: No Estimated days supply on hand: 10 Next cycle/dose due: 04/24/25 Copay amount: 0 Payment confirmed: Yes Delivery method: FedEx Signature required: No Delivery address: [address] [place] [address] Delivery date: 04/26/25 Questions or concerns for [...] facility-administered medications on file prior to visit. [facility] RX SPECIALTY CLINICAL ASSESSMENT - NEUROLOGY V7: [...] monitor patients closely for evidence of excessive TRANSPORTATION DRIVER depression (ie, respiratory depression, hypotension, sedation, or coma). Vaccines Est. Tx Plan Start Date: No information available Estimated Start Date Info: No information available Est. Estimated Treatment Duration: No information available Deisi Post CPhT [facility], Inflammatory P: [phone] F: [phone] [facility]25 NoteHNO ID: [id number] Author: WESLEY FISHER [facility]: ? Author Type: ? Type: Progress [...] reviewed prior to dispensing the medication. Wesley Fisher, PharmD, BCPS, CSP, MSCS Clinical Pharmacist [facility] P: ; F: Pool: P [facility] Accounting Manager Cpa Assessment Patient confirmed: Yes Med/dose confirmed: Yes Supplies needed: No supplies needed Missed doses: No Estimated days supply on hand: 10 Next cycle/dose due: 04/24/25 Copay amount: 0 Payment confirmed: Yes Delivery method: FedEx Signature required: No Delivery address: [address] [place] [address] Delivery date: 04/26/25 Questions or concerns for [...] facility-administered medications on file prior to visit. [facility] RX SPECIALTY CLINICAL ASSESSMENT - NEUROLOGY V7: [...] treatment options are inadequa (more content not included)...[facility] 04-21-2025 Progress note Author Talat Cameron [facility] Note Date/Time April 21, 2025 6:13p m [facility] Medical Records Department [address] [place] [address] Progress Note - Pharmacy 04/21/25 1122 MR#: [id number] Acct: [id number] Name: MANSI CARO Rep #:[id number] : 1955 70 From: Talat Cameron PCP: Marci Nuñez DO Status:ADM I N Location: TCU [place] [address] Documented by User: Talat Cameron 04/21/25 12:12 [...] Ferrous Sulfate 325 Mg Tablet PO DAILY@1200 VERONA Furosemide 20 mg 04/20/25 16:41 Furosemide 20 Mg Tablet PO DAILY PRN PRN for 2lb weight gain Protocol Glycerin/Hypromellose/Polyethylene 1 drp 04/20/25 18:04 Glycerin/Hypromellose/Onf422 15 Ml Bottle EACH EYE Q1H PRN PRN Dry eyes Hyoscyamine Sulfate 0.125 mg 04/20/25 18:01 Hyoscyamine Sulfate 0.125 Mg Tablet PO TID PRN dyspepsia Lamotrigine 100 mg 04/21/25 10:00 04/21/25 09:02 Lamotrigine 100 Mg Tablet PO 100 mg DAILY VERONA Administration Metformin HCl 500 mg 04/21/25 08:00 04/21/25 09:00 Metformin Hcl 500 Mg Tablet PO 500 mg DAILYCM VERONA Administration Metoprolol Succinate 25 mg 04/21/25 10:00 [...] PO daily. This is a stable chronic prison medication, GDR not recommended. Monitor for efficacy [...] Cameron> Talat Cameron Cosigner Signature (if applicable): 04/21/25 1813 <Electronically signed by Alonso Marte MD> CC: ~ Signed [facility] Work Phone: 1(269) 326-966605-31-2025 Progress note [facility] Medical Records Department [address] [place] [address] Progress Note - Pharmacy 04/21/25 1122 MR#: [id number] Acct: [id number] Name: MANSI CARO Rep #:[id number] : 1955 70 From: Talat Cameron PCP: Marci Nuñez DO Status:ADM I N Location: TCU [facility]- Documented by User: Talat Cameron 04/21/25 [...] Ferrous Sulfate 325 Mg Tablet PO DAILY@1200 [facility] Furosemide 20 mg 04/20/25 16:41 Furosemide 20 Mg Tablet PO DAILY PRN PRN for 2lb weight gain Protocol Glycerin/Hypromellose/Polyethylene 1 drp 04/20/25 18:04 Glycerin/Hypromellose/Iyt862 15 Ml Bottle EACH EYE Q1H PRN PRN Dry eyes Hyoscyamine Sulfate 0.125 mg 04/20/25 18:01 Hyoscyamine Sulfate 0.125 Mg Tablet PO TID PRN dyspepsia Lamotrigine 100 mg 04/21/25 10:00 04/21/25 09:02 Lamotrigine 100 Mg Tablet PO 100 mg DAILY VERONA Administration Metformin HCl 500 mg 04/21/25 08:00 04/21/25 09:00 Metformin Hcl 500 Mg Tablet PO 500 mg DAILYCM VERONA Administration Metoprolol Succinate 25 mg 04/21/25 10:00 04/21/25 09:03 Metoprolol(Xl)Succ 25 Mg Tablet PO 25 mg DAILY VERONA Administration Protocol Non-Formulary Medication 145 mcg 04/21/25 10:00 Linaclotide [Linzess] PO QAM [facility] Oxycodone HCl 5 mg 04/20/25 18:07 Oxycodone [...] PO daily. This is a stable chronic prison medication, GDR not recommended. Monitor for efficacy [...] Recommendations by Pharmacy Agree 04/21/25 1212 Talat Talhaannemarie Ortizignaudi Signature (if applicable): 04/21/25 1813 CC: ~ Signed [facility]05-30-2025 History and physical note Author Alonso Marte [facility] Note Date/Time April 20, 2025 4:53p m [facility] Medical Records Department [address] [place] [address] History & Physical Exam 04/20/25 1624 MR#: [id number] Acct: [id number] Name: MANSI CARO Rep #:[id number] : 1955 70 From: Alonso Marte MD PCP: Marci Nuñez DO Status:ADM I N Location: TCU [place] [address] HPI - General General Date of Admission: 04/20/25 Date of Service: 04/20/25 Chief Complaint: Here for rehabilitation. HPI Narrative MANSI CARO, is a 70 Female who presents with followin04/19/2025 [facility] ED weakness. Walks with walker at baseline. Not eating, not drinking for weeks. Too weak to get OOB. Patient concerned with urinary tract infection. Bloodwork okay, urinalysis okay. Normal saline 1 liter IV fluid bolus given. unable to care for her at home. PT/OT for placement. 04/19/2025 Admit [facility]. PT/OT/CM for SNF placement. No reversible etiology for weakness found. 04/20/2025 Resident vomited twice, vomitus appeared to be food, antiemetics givenwhich made her loopy. 04/20/2025 Admit to TCU with debility, here for rehabilitation, strengthening, prior to discharge home with . 04/25/2025 Dr. Lockett planning EGD/colonoscopy for anemia, +hemoccult, ischemic colitis. Dr. Garcia planning cystoscopy in office, date unknown. [facility] Medical History (Updated 04/20/25 @ 16:34 by [...] (patent foramen ovale) Cardiac resynchronization therapy defibrillator (MILL OPERATOR HEAD-D) in place Myocarditis Hyperlipidemia Hypertension Home Medications [...] 0.125 mg tablet 0.125 mg PO TID LA N dyspepsia #90 03/05/25 Unknown Rx tabs [...] history: - Song FUENTES Constitutional Constitutional: Reports weakness; Denies chills, fever(s) [...] ___x_ GRD contraindicated. Reason contraindicated: stable chronic prison use. The following psychotropic medication was present [...] __x__ GRD contraindicated. 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 The following psychotropic medication was present [...] __x__ GRD contraindicated. 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 04/20/25 1653 <Electronically signed by Alonso Marte MD> Cosigner Signature (if applicable): CC: Dr. Alonso Marte MD; Marci Nuñez DO~ Signed [facility] Work Phone: 1(428) 679-537805-30-2025 History and physical note [facility] Medical Records Department [address] [place] [address] History & Physical Exam 04/20/25 1624 MR#: [id number] Acct: [id number] Name: MANSI CARO Rep #:[id number] : 1955 70 From: Alonso Marte MD PCP: Marci Nuñez DO Status:ADM I N Location: TCU [facility] HPI - General General Date of Admission: 04/20/25 Date of Service: 04/20/25 Chief Complaint: Here for rehabilitation. HPI Narrative MANSI CARO, is a 70 Female who presents with followin04/19/2025 [facility] ED weakness. Walks with walker at baseline. Not eating, not drinking for weeks. Too weak to get OOB. Patient concerned with urinary tract infection. Bloodwork okay, urinalysis okay. Normal saline 1 liter IV fluid bolus given. unable to care for her at home. PT/OT for placement. 04/19/2025 Admit [facility]. PT/OT/CM for SNF placement. No reversible etiology for weakness found. 04/20/2025 Resident vomited twice, vomitus appeared to be food, antiemetics givenwhich made her loopy. 04/20/2025 Admit to TCU with debility, here for rehabilitation, strengthening, prior to discharge home with . 04/25/2025 Dr. Lockett planning EGD/colonoscopy for anemia, +hemoccult, ischemic colitis. Dr. Garcia planning cystoscopy in office, date unknown. [facility] Medical History (Updated 04/20/25 @ 16:34 by [...] (patent foramen ovale) Cardiac resynchronization therapy defibrillator (MILL OPERATOR HEAD-D) in place Myocarditis Hyperlipidemia Hypertension Home Medications [...] 0.125 mg tablet 0.125 mg PO TID LA N dyspepsia #90 03/05/25 Unknown Rx tabs [...] history: - Song FUENTES Constitutional Constitutional: Reports weakness; Denies chills, fever(s) [...] ___x_ GRD contraindicated. Reason contraindicated: stable chronic prison use. The following psychotropic medication was present [...] __x__ GRD contraindicated. 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 The following psychotropic medication was present [...] __x__ GRD contraindicated. 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 04/20/25 1653 Cosigner Signature (if applicable): CC: Dr. Alonso Marte MD; Marci Nuñez DO~ Signed [facility]05-30-[address] [facility]05-30-2025 Discharge summary [facility] Medical Records Department [address] [place] [address] Discharge Summary 04/20/25 1449 MR#: [id number] Acct: [id number] Name: MANSI CARO Rep #:[id number] : 1955 70 From: Maximo levin DO PCP: Marci Nuñez DO Status:ADM I NO [facility] Date of Admission: 04/19/25 Date of [...] PO Q6H PRN PRN Pain Score 1-10 07/23/24 docusate sodium 100 mg capsule 100 mg [...] is a 70-year-old female who presented to [facility] ED on 04/19/2025 with worsening weakness. [...] in before D/C Order can be placed): [facility] Facility Charges/Coding Visit Charges Inpatient E&M: 77307 Disch Hosp >30min 04/20/25 1455 Cosigner Signature (if applicable): CC: Dr. Maximo Orosco DO; Marci Nuñez DO~ Signed [facility]05-30-2025 Discharge summary [facility] Medical Records Department [address] [place] [address] Transfer to [facility] Care MR#: [id number] Acct: [id number] Name: MANSI CARO Rep #:[id number] : 1955 70 From: Maximo levin DO PCP: Marci Nuñez DO Status:ADM I NO Certification of patient admission REQUIRED AT TIME OF ADMISSION. I CERTIFY THAT POST-HOSPITAL ECF SERVICES ARE REQUIRED TO BE GIVEN ON AN IN-PATIENT BASIS BECAUSE OF THE ABOVE NAMED PATIENT'S NEED FOR SNF CARE ON A CONTINUING BASIS FOR THE CONDITION(S) FOR WHICH HE/SHE WAS RECEIVING IN-PATIENT HOSPITAL SERVICES PRIOR TO HIS/HER TRANSFER TO THE F. 04/20/25 1453 Diet Diet Order/Speech Therapy: INPATIENT Hospital Diet [...] is a 70-year-old female who presented to [facility] ED on 04/19/2025 with worsening weakness. [...] in before D/C Order can be placed): [facility] Facility 04/20/25 4 Cosigner Signature (if applicable): CC: Marci Nuñez DO ~ [facility]05-30-[address] [facility]05-29-2025 History and physical note Author Maximo Orosco [facility] Note Date/Time April 19, 2025 2:36p m [facility] Medical Records Department [address] [place] [address] H&P Exam - Hospitalist 04/19/25 1124 MR#: [id number] Acct: [id number] Name: MANSI CARO Rep #:[id number] : 1955 70 From: Maximo levin DO PCP: Marci Nuñez DO Status:ADM I NO [place] [facility] [id number] HPI - General General Date of Admission: 04/19/25 Date of Service: 04/19/25 Chief Complaint: Worsening weakness HPI Narrative MANSI CARO, is a 70 F who presented to [facility] ED on 04/19/2025 with worsening weakness. [...] No other concerns at thistime. [facility] Medical History Ischemic colitis History of left [...] (patent foramen ovale) Cardiac resynchronization therapy defibrillator (MILL OPERATOR HEAD-D) in place Myocarditis Hyperlipidemia Hypertension Home Medications [...] 0.125 mg tablet 0.125 mg PO TID LA N dyspepsia #90 03/05/25 Unknown Rx tabs [...] (Auto) 78.3 H, Lymph % (Auto) 10.4 L,[place] % (Auto) 8.2, Eos % (Auto) 2.5, [...] Clarity Clear, Urine pH 6.5, Ur Specific [place] 1.010, Urine Protein 15 H, Urine Glucose [...] is a 70-year-old female who presented to [facility] ED on 04/19/2025 with worsening weakness. 1. Acute on chronic debility ? Admit under observation status to [facility]. PT/OT/case management consulted. Patient with chronic [...] 55 minutes. Charges/Coding Visit Charges Inpatient E&M: 54144 Init Hosp L2 04/19/25 1436 <Electronically signed by Maximo Orosco DO> Cosigner Signature (if applicable): CC: Dr. Maximo Orosco DO; Marci Nuñez DO~ Signed [facility] Work Phone: 1(480) 472-558905-29-2025 History and physical note [facility] Medical Records Department [address] [place] [address] H&P Exam - Hospitalist 04/19/25 1124 MR#: [id number] Acct: [id number] Name: MANSI CARO Rep #:[id number] : 1955 70 From: Maximo levin DO PCP: Marci Nuñez DO Status:ADM I NO Location: [facility] [id number] HPI - General General Date of Admission: 04/19/25 Date of Service: 04/19/25 Chief Complaint: Worsening weakness HPI Narrative MANSI CARO, is a 70 F who presented to [facility] ED on 04/19/2025 with worseningweakness. Patient [...] No other concerns at thistime. [facility] Medical History Ischemic colitis History of left [...] (patent foramen ovale) Cardiac resynchronization therapy defibrillator (MILL OPERATOR HEAD-D) in place Myocarditis Hyperlipidemia Hypertension Home Medications [...] 0.125 mg tablet 0.125 mg PO TID LA N dyspepsia #90 03/05/25 Unknown Rx tabs [...] (Auto) 78.3 H, Lymph % (Auto) 10.4 L,[place] % (Auto) 8.2, Eos % (Auto) 2.5, [...] Clarity Clear, Urine pH 6.5, Ur Specific [place] 1.010, Urine Protein 15 H, Urine Glucose [...] is a 70-year-old female who presented to [facility] ED on 04/19/2025 with worsening weakness. 1. Acute on chronic debility ? Admit under observation status to [facility]. PT/OT/case management consulted. Patient with chronic [...] 55 minutes. Charges/Coding Visit Charges Inpatient E&M: 63044 Init Hosp L2 04/19/25 1436 Cosigner Signature (if applicable): CC: Dr. Maximo Orosco DO; Marci Nuñez DO~ Signed [facility]05-29-2025 Discharge summary Author Romeo Padron [facility] Note Date/Time April 19, 2025 11:06 am [facility] Medical Records Department [address] [place] [address] Emergency Department Summary 04/19/25 MR#: [id number] Acct: [id number] Name: MANSI CARO Rep #:[id number] : 1955 70 From: Romeo Padron DO PCP: Marci Nuñez DO Status:REG E R Location: ED ADDENDUM by Dr. Bossman Sanders DO on 04/19/25 at 1106 Patient care turned over to me awaiting evaluation by social work coordinator for placement to correction facility. Patient was evaluated by social work [...] infection she was brought in for evaluation [facility] Medical History Ischemic colitis History of [...] (patent foramen ovale) Cardiac resynchronization therapy defibrillator (MILL OPERATOR HEAD-D) in place Myocarditis Hyperlipidemia Hypertension Home Medications [...] 0.125 mg tablet 0.125 mg PO TID LA N dyspepsia #90 03/05/25 Unknown Rx tabs [...] Yes additional social history: - Song FUENTES [facility] ED Constitutional Constitutional ED: Denies chills or [...] to go home and is agreeable to [facility]/rehab placement. As it is a weekday and morning hours the patient will be evaluated by physical therapy/Occupational Therapy in the ER and social work will be consulted as well. There is hopes that the patient will be able to be sent directly from the ER to a [facility]/rehab center. The patient and family were informed [...] 78.3 H Lymph % (Auto) 10.4 L [place] % (Auto) 8.2 Eos % (Auto) 2.5 [...] Clarity Clear Urine pH 6.5 Ur Specific [place] 1.010 Urine Protein 15 H Urine Glucose (UA) 100 H Urine Ketones Negative Urine Occult Blood Negative Urine Nitrite Negative Urine Bilirubin Negative Urine Urobilinogen Normal Ur Leukocyte Esterase Negative Urine RBC 0 SEEN Urine WBC 0 SEEN Ur Squamous Epith Cells 0 SEEN Urine Bacteria 0 SEEN Urine Mucus 0 SEEN Management Discussion w/another healthcare provider: Hospitalist and odd jobs day worker/Case management Discharge Plan Triage Chief Complaint: [...] DO [Primary Care Provider] - Print Language: Togolese What to do if you have Problems For any increased pain, shortness of breath, bleeding, nausea or vomiting, chestpain, or any unexpected problems, contact your Primary Care Provider. Call [facility] ([phone]) or report to the closest Emergency Room. Call 911 if necessary. 04/19/25 0633 <Electronically signed by Romeo Padron DO> Cosigner Signature (if applicable): CC: Marci Nuñez DO ~ Signed [facility] Work Phone: 1(122) 949-874705-29-2025 Discharge summary [facility] Medical Records Department [address] [place] [address] Emergency Department Summary 04/19/25 MR#: [id number] Acct: [id number] Name: MANSI CARO Rep #:[id number] : 1955 70 From: Romeo Padron DO PCP: Marci Nuñez DO Status:REG E R Location: ED ADDENDUM by Dr. Bossman Sanders DO on 04/19/25 at 1106 Patient care turned over to me awaiting evaluation by social work coordinator for placement to correction facility. Patient was evaluated by social work coordinator and it was recommended that patient be admitted for precertification and admission to correction facility. Will discuss case with hospitalist to evaluate patient for admission. 04/19/25 1106 Cosigner Signature (if applicable): cc: Marci Nuñez [...] infection she was brought in for evaluation [facility] Medical History Ischemic colitis History of [...] (patent foramen ovale) Cardiac resynchronization therapy defibrillator (MILL OPERATOR HEAD-D) in place Myocarditis Hyperlipidemia Hypertension Home Medications [...] 0.125 mg tablet 0.125 mg PO TID LA N dyspepsia #90 03/05/25 Unknown Rx tabs [...] to go home and is agreeable to [facility]/rehab placement. As it is a weekday and morning hours the patient will be evaluated by physical therapy/Occupational Therapy in the ER and social work will be consulted as well. There is hopes that the patient will be able to be sent directly from the ER to a [facility]/rehab center. The patient and family were informed [...] 78.3 H Lymph % (Auto) 10.4 L [place] % (Auto) 8.2 Eos % (Auto) 2.5 [...] Clarity Clear Urine pH 6.5 Ur Specific [place] 1.010 Urine Protein 15 H Urine Glucose (UA) 100 H Urine Ketones Negative Urine Occult Blood Negative Urine Nitrite Negative Urine Bilirubin Negative Urine Urobilinogen Normal Ur Leukocyte Esterase Negative Urine RBC 0 SEEN Urine WBC 0 SEEN Ur Squamous Epith Cells 0 SEEN Urine Bacteria 0 SEEN Urine Mucus 0 SEEN Management Discussion w/another healthcare provider: Hospitalist and odd jobs day worker/Case management Discharge Plan Triage Chief Complaint: [...] DO [Primary Care Provider] - Print Language: Togolese What to do if you have Problems For any increased pain, shortness of breath, bleeding, nausea or vomiting, chestpain, or any unexpected problems, contact your Primary Care Provider. Call [facility] ([phone]) or report tothe closest Emergency Room. Call 911 if necessary. 04/19/25 0634 Cosigner Signature (if applicable): CC: Marci Nuñez DO ~ Signed [facility]05-14-2025 History of Present illness Narrative* Rubina [...] that CIED system is MR conditional: Yes, [email or web address] Remote programming PATIENT PRESENTS WITH AN IMPLANTABLE OR ATTACHED BULK MATERIALS HANDLING PLANT OPERATOR: No RADIOLOGY DEPARTMENT: MR; Exam(s) Completed: Head: Routine Brain. Lavender Administered: No PERIPHERAL IV DATA: Not applicable SIGNED BY: DIONNA Shipman April 04, 2025 12:27 PM documented in this encounterTrinity Health System05-14-2025 NoteHNO ID: [id number] Author: RUBIAN VALDOVINOS CT Service: Radiology Author Type: Technologist [...] that CIED system is MR conditional: Yes, [employer] Remote programming PATIENT PRESENTS WITH AN IMPLANTABLE OR ATTACHED BULK MATERIALS HANDLING PLANT OPERATOR: No RADIOLOGY DEPARTMENT: MR; Exam(s) Completed: Head: Routine Brain. Lavender Administered: No PERIPHERAL IV DATA: Not applicable SIGNED BY: DIONNA Shipman April 04, 2025 12:27 PMTrinity [facility] System [facility] [id number] Nurse Note* Ericka Tompkins RN - 04/04/2025 12:00 PM EDT [...] REVIEWED: YES PROCEDURE: MRI - Conditional Pacemaker [employer] Dairy Scientist Device - Settings: DOO 90 bpm Physiologic monitoring per standard operating procedure. See vital sign flowsheet. PERIPHERAL IV ACCESS: Not applicable PATIENT TOLERATED PROCEDURE: Without incident. PATIENT DISCHARGED TO: Home/Self Care SIGNED BY: TANIA Barnett Patient arrived here today for an MRI. Patients [employer] Pacemaker was placed in MRI safe mode by industrial technician & device. Vitals remained stable throughout - see flowsheet. MRI was completed and then pacemaker was taken out of MRI safe mode and tolerated well. Patient was discharged home with family. [facility]14[facility] Nurse Note* Ericka Tompkins RN - 04/04/2025 12:00 PM EDT [...] REVIEWED: YES PROCEDURE: MRI - Conditional Pacemaker [employer] Dairy Scientist Device - Settings: DOO 90 bpm Physiologic monitoring per standard operating procedure. See vital sign flowsheet. PERIPHERAL IV ACCESS: Not applicable PATIENT TOLERATED PROCEDURE: Without incident. PATIENT DISCHARGED TO: Home/Self Care SIGNED BY: TANIA Barnett Patient arrived here today for an MRI. Patients [employer] Pacemaker was placed in MRI safe mode by industrial technician & device. Vitals remained stable throughout - see flowsheet. MRI was completed and then pacemaker was taken out of MRI safe mode and tolerated well. Patient was discharged home with family. documented in this encounterTrinity Health System05-12-2025 History of Present illness Narrative* Jelly Kinney Tech - 04/02/2025 9:00 AM EDT Radiology [...] PATIENT PRESENTS WITH AN IMPLANTABLE OR ATTACHED BULK MATERIALS HANDLING PLANT OPERATOR: No RADIOLOGY DEPARTMENT: General X-ray: Exam(s) Completed: Chest X-Ray PERIPHERAL IV DATA: Not applicable SIGNED BY: Rayne Khoury April 02, 2025 9:34 AM documented in this encounterTrinity Health System05-12-2025 NoteHNO ID: [id number] Author: JELLY KINNEY Tech Service: ? Author Type: Accounting Manager Cpa Type: Progress Notes Filed: 04/02/2025 09:34 Note [...] PATIENT PRESENTS WITH AN IMPLANTABLE OR ATTACHED BULK MATERIALS HANDLING PLANT OPERATOR: No RADIOLOGY DEPARTMENT: General X-ray: Exam(s) Completed: Chest X-Ray PERIPHERAL IV DATA: Not applicable SIGNED BY: Rayne Khoury April 02, 2025 9:34 AMTrinity Health System [facility] City Medical [id number] Telephone encounter Note* Telephone Encounter - Soumya Moss RN - 03/28/2025 9:45 AM EDT Voicemail received March 27, 2025 1458 Spouse calling to check on status of Aust[facility]. Call to pharmacy, [facility] has been authorized. They will be reaching out to patient to discuss co-pay. [facility]05-07[facility] Miscellaneous Notes* Telephone Encounter - Soumya Moss RN - 03/28/2025 9:45 AM EDT Voicemail received March 27, 2025 1458 Spouse calling to check on status of Austedo. Call to pharmacy, Austedo has been authorized. They will be reaching out to patient to discuss co-pay. documented in this encounterTrinity Health System04-19-2025 Radiology Diagnostic study note [facility] Services [address] [place], [place] [address] HIP, UNI W/ Pelvis 2-3 Views MR#: [id number] Acct: [id number] Name: MANSI CARO Rep #: [id number] : 1955 F 70 From: Vickie Coles MD PCP: Marci Nuñez DO Status: REG E R Study:HIP, UNI W/ Pelvis 2-3 Views Date of Ex am: 03/10/25 Exam# [id number] Ordering Dr: Mellisa Taylor PROCEDURE: HIP, UNI [...] IMPRESSION: Negative left hip radiographs. Reading Location: [id number] CC: Marci Nuñez DO; AMRIK Harrison ~ Cash Posting Specialist: Signed [facility]04-19-2025 Telephone encounter Note* Telephone Encounter - Linda Valdez RN - 03/10/2025 8:02 AM EDT S-Patient and patient spouse calling in re: patient fell yesterday and has Left hip pain . B-Happened yesterday A-states having hard time walking due to pain, No COVID Symptoms. Has a brouis, no other sites withpain R-Scheduled Same Day After hours appt today @ 10:00a 03/10/25 @ [facility], address provided Reason for Disposition MILD weakness (i.e., does not interfere with ability to work, go to school, normal activities) (Exception: Mild weakness is a chronic symptom.) Answer Assessment - Initial Assessment Questions . Protocols used: Falls and Llsjtxn-ZTCXP-ME [facility] [id number] Miscellaneous Notes* Telephone Encounter - Linda Valdez RN - 03/10/2025 8:02 AM EDT S-Patient and patient spouse calling in re: patient fell yesterday and has Left hip pain . B-Happened yesterday A-states having hard time walking due to pain, No COVID Symptoms. Has a brouis, no other sites withpain R-Scheduled Same Day After hours appt today @ 10:00a 03/10/25 @ [facility], address provided Reason for Disposition MILD weakness (i.e., does not interfere with ability to work, go to school, normal activities) (Exception: Mild weakness is a chronic symptom.) Answer Assessment - Initial Assessment Questions . Protocols used: Falls and Rfxmxfq-QWCMT-LL documented in this [facility]04-18-2025 Telephone encounter Note* Telephone Encounter - Dipti Stewart - 03/09/2025 12:14 PM EDT Spouse called inquiring status of RX for valbenazine (INGREZZA) 40 mg capsule. Informed Spouse that order was signed on 02/27/2025. Order has been faxed to [facility]: [phone]. Spouse provided phone number for pharmacy ([phone]) to follow up on this request. Dipti Stewart [facility]04-18-2025 Miscellaneous Notes* Telephone Encounter - Dipti Stewart - 03/09/2025 12:14 PM EDT Spouse called inquiring status of RX for valbenazine (INGREZZA) 40 mg capsule. Informed Spouse that order was signed on 02/27/2025. Order has been faxed to [facility]: [phone]. Spouse provided phone number for pharmacy ([phone]) to follow up on this request. Dipti Stewart documented in this encounterTrinity Health System04-10-2025 Telephone encounter Note * Telephone Encounter - Jayda Casey RT(R) - 03/01/2025 3:27 PM EDT Kyra, You have ordered an MRI on this patient with an implanted cardiac device. To clear the patient, as per our policy, patient will need a 2 view CXR prior to MRI scan. CXR is used to confirm there are no broken or abandoned leads. Thank you, Jayda Hall(R)(MR),[facility] MRI Safety Team [facility]04-10-2025 Miscellaneous Notes* Telephone Encounter - Jayda Casey RT(R) - 03/01/2025 3:27 PM EDT Michaello, You have ordered an MRI on this patient with an implanted cardiac device. To clear the patient, as per our policy, patient will need a 2 view CXR prior to MRI scan. CXR is used to confirm there are no broken or abandoned leads. Thank you, Jayda Hall(Bairon)(MR),[facility] MRI Safety Team documented in this encounterTrinity Health System04-09-2025 NoteHNO ID: [id number] Author: LEYLA TSE MD Service: ? Author Type: Physician Type: Progress Notes Filed: 02/28/2025 09:12 Note Text: [facility] - FOLLOW UP EVALUATION The patient consented to the use of ambient AI software for draft documentation of the visit consistent with [facility]?s Notice of Privacy Practices. Jesus Manuel Martinez DO, [address] [facility] [address] Dear Jesus Manuel Martinez DO, DO: I had the pleasure of [...] reports minimal improvement. She follows with Dr. Mccord. She has been experiencing an intermittent postural [...] that cannabis use during a visit to [place] temporarily alleviated her symptoms. She reports difficulty [...] 02/27/2025 in N (more content not included)... [facility]04-09-2025 History of Present illness Narrative* Leyla Tse MD - 02/28/2025 8:58 AM EDT [facility] - FOLLOW UP EVALUATION The patient consented to the use of ambient AI software for draft documentation of the visit consistent with [facility] s Notice of Privacy Practices. Jesus Manuel Martinez DO, DO [address] [facility] [address] Dear Jesus Manuel Martinez DO, DO: I had the pleasure of [...] reports minimal improvement. She follows with Dr. Mccord. She has been experiencing an intermittent postural [...] that cannabis use during a visit to [place] temporarily alleviated her symptoms. She reports difficulty [...] Row Office Visit from 02/27/2025 in Neurology [facility] from 10/20/2023 in Neurological [facility] T Score 26.7 32.4 [...] reaction and is willing to rechallenge Jose MARIN Current Outpatient Medications Medication Sig Acetaminophen 500 [...] 2+ 2+ Achilles 1+ 1+ Coordination Right: Xapxth-dx-kygx normal. Rapid alternating movement normal. Hqoo-xm-nlxw normal.Left: Mqokke-xe-giyk normal. Rapid alternating movement normal. Ktgu-rl-apts normal. Gait Casual gait: Wide stance. Reduced [...] Ingrezza 40 mg daily; prescription sent to [facility] for processing. - Patient and family educated on potential side effects and the process of obtaining medication through a specialty pharmacy. The following are the current problems noted and addressed during this visit: Essential tremor (primary encounter diagnosis) Dyskinesia, tardive Plan 02/27/2025 Visit: - Start taking Ingrezza 40 mg daily for mouth movements; prescription sent to [facility]. Once this is controlled we [...] or around: 05/29/25 Level of service : 69360 (40-68 min). Time spent 67 min on the day of service, which included preparing to see the patient, bkav-oe-fmkh patient care, completing clinical documentation, obtaining and/or [...] to call with any questions. Sincerely, Leyla Tse MD documented in this encounterTrinity Health System04-09-2025 History of Present illness Narrative* Michel Ibrahim - 02/28/2025 7:32 AM EDT [facility] received prescription(s) for Ingrezza from Leyla Tse's office. Benefits investigation was conducted, indicating that a prior authorization is required by patient's insurance plan with [employer]. Encounter will be updated once prior authorization has been submitted by [facility]. Michel Ibrahim CPhT Neurology, Cardiology & Infectious Disease [facility] documented in this encounterTrinity Health System04-09-2025 NoteHNO ID: [id number] Author: WESLEY FISHER jose Service: ? Author Type: Pharmacist Type: Progress Notes Filed: 03/09/2025 16:31 Note Text: [facility] received prescription(s) for Ingrezza from Leyla Tse's office. Benefits investigation was conducted, indicating that a prior authorization is required by patient's insurance plan with [employer]. PA was denied with details listed below. Plan Name: [employer] Medicare Plan Agent/Rios: [id number] Case: [id number] Phone/ / [phone] Case: Denial reason: Full denial letter has been scanned into patients chart. [facility] will review and assess if appeal is appropriate. Note will be updated accordingly. Wesley Fisher [facility]04-09-2025 NoteHNO ID: [id number] Author: WESLEY FISHER [facility]: ? Author Type: Pharmacist Type: Progress Notes Filed: 03/29/2025 10:22 Note Text: [facility] received prescription(s) for Autedo from Leyla Tse's office. Benefits investigation was conducted, indicating that a prior authorization is required by patient's insurance plan with sones. PA was approved with details listed below: Plan Name: [employer] Medicare Approval Dates: 03/13/25 - 11/21/25 Pt's copay is $196. Shipment has been arranged, and pt will receive medication(s) on 03/30. Pt has been instructed to follow-up with clinic to confirm start date. A full drug interaction report was conducted, and risk of additive TRANSPORTATION DRIVER depression with Percocet was discussed with spouse. [...] reaction and is willing to rechallenge Jose MARIN Problem List Noted Noted By Resolved Resolved By Spastic hemiparesis (HCC) 05/13/2023 Ghazala Mccord MD No Parkinsonism (HCC) 06/25/2022 Sherif Ramirez MD No Cholelithiasis 12/26/2014 Jasper Jackson MD No Peripheral vertigo, unspecified 01/14/2010 Radha Ogden No Vertigo of central origin 01/14/2010 Radha Ogden No Acute, but ill-defined, cerebrovascular disease 08/14/2009 Florina Sharif (Rn)(Hist), RN No Personal history of colonic polyps 02/21/2015 Guy Mcgarry MD 02/21/2015 Accounting Manager Cpa Assessment Patient confirmed: Yes Med/dose confirmed: Yes Supplies needed: Welcome packet Copay amount: 196 Copay form of payment: Credit card on file Payment confirmed: Yes Delivery method: FedEx Signature required: Waived on patient request Delivery address: [address] [address] Delivery date: 03/30/25 Questions or concerns for the pharmacist?: Yes Patient questions/concerns: Medication cost, Medication dose, Medication route, Medication storage, Side effects, Delivery Did you have any side effects believed to be related to this medication, that resulted in hospitalization?: No [facility] SPECIALTY CLINICAL ASSESSMENT - NEUROLOGY V7: Assessment to use: Initial Vaccination status assessment at initiation as andra (more content not included)...[facility]04-09-2025 NoteHNO ID: [id number] Author: ?, ?, ? Service: ? Author Type: ? Type: Progress Notes Filed: 03/13/2025 08:39 Note Text: [facility] received prescription(s) for Autedo from Leyla Tse's office. Benefits investigation was conducted, indicating that a prior authorization is required by patient's insurance plan with sones. Note will be updated once prior authorization has been submitted. Jose Taveras CPhT (Dee) [facility] Neurology/Cardiology/Infections Disease [facility] P: F[facility] NoteHNO ID: [id number] Author: ?, ?, ? Service: ? Author Type: ? Type: Progress Notes Filed: 03/16/2025 15:10 Note Text: [facility] received prescription(s) for Austedo from Dr. Tse's office. Benefits investigation was conducted, indicating that a prior authorization is required. PA was approved with details listed below. Plan Name: [employer] Medicare Approval Dates: 03/13/25 - 11/21/25 Prescriptions will now be processed through [facility] for determination of next steps. Estefany Anguiano CPhT [facility] Specialty Pharmacy, Neurology, Cardiology, AND Infectious Disease P: [phone] F: [phone]04-09-2025 NoteHNO ID: [id number] Author: ?, ?, ? Service: ? Author Type: ? Type: Progress Notes Filed: 03/07/2025 10:28 Note Text: PA was initiated and pending review. Plan Name: [employer] Medicare Plan Agent/Rios: [id number] Case: [id number] Timeline: Standard Michel Ibrahim CPhT Neurology, Cardiology AND Infectious Disease [facility]04-09-2025 NoteHNO ID: [id number] Author: ?, ?, ? Service: ? Author Type: ? Type: Progress Notes Filed: 02/28/2025 07:34 Note Text: [facility] received prescription(s) for Ingrezza from Leyla Tse's office. Benefits investigation was conducted, indicating that a prior authorization is required by patient's insurance plan with [employer]. Encounter will be updated once prior authorization has been submitted by [facility]. Michel Ibrahim CPhT Neurology, Cardiology AND Infectious Disease [facility]04-08-2025 Telephone encounter Note* Telephone Encounter - Dipti Stewart - 02/27/2025 4:54 PM EDT Patient's spouse reports that Patient has a MILL OPERATOR HEAD-D implant (Cardiac Resynchronization Therapy with Defibrillator). Per scheduling protocol, staff message forwarded to [facility] to contact Patient for appointment coordination/scheduling. Patient/Spouse will be contacted within 4 business days. Dipti Stewart [facility]04-08-2025 Miscellaneous Notes* Telephone Encounter - Dipti Stewart - 02/27/2025 4:54 PM EDT Patient's spouse reports that Patient has a MILL OPERATOR HEAD-D implant (Cardiac Resynchronization Therapy with Defibrillator). Per scheduling protocol, staff message forwarded to [facility] [employer] battle ground to contact Patient for appointment coordination/scheduling. Patient/Spouse will be contacted within 4 business days. Dipti Stewart documented in this encounterTrinity Health System04-08-2025 Instructions* Patient Instructions* Leyla Tse MD - 02/27/2025 4:44 PM EDT It was a pleasure to see you today. We addressed the following diagnoses: Essential tremor (primary encounter diagnosis) Dyskinesia, tardive My recommendations are as follows: - Start taking Ingrezza 40 mg daily for mouth movements; prescription sent to [facility]. Once this is controlled we [...] or you can send a message through [employer]. You can also now schedule and select appointments through [employer]. Leyla Tse MD documented in this encounterTrinity Health System03-25-2025 Evaluation note* Diagnosis Onset Date Resolution Status [...] artery acute May 29, 2025 3 :08pm [facility] Work Phone: 1(898) 283-299703-25-2025 Evaluation note* Diagnosis Onset Date Resolution Status [...] April 25, 2025 6:41am Ischemic cardiomyopathy acute 2024 3:08pm Presence of biventricular implantable cardioverter-defibrillator acute May 29, 2025 3:08pm Presence of stent in coronar y artery acute May 29, 2025 3 :08pm Abdominal pain acute May 30, 2025 1:59pm [employer] Work Phone: 1(184) 888-330703-25-2025 Evaluation note* Diagnosis Onset Date Resolution Status [...] 25, 2025 6:41am Ischemic cardiomyopathy acute J antione2024 3:08pm Presence of biventricular implantable cardioverter-defibrillator acute May 29, 2025 3:08pm Presence of stent in coronar y artery acute May 29, 2025 3 :08pm Abdominal pain acute May 30, 2025 1:59pm Irritable bowel syndrome acute May 30, 2025 1:59pm Ischemic colitis acute May 1:59pm [facility] Work Phone: 1(150) 596-427503-25-2025 Evaluation note* Diagnosis Onset Date Resolution Status [...] 25, 2025 6:41am Ischemic cardiomyopathy acute J antione2024 3:08pm Presence of biventricular implantable cardioverter-defibrillator acute May 29, 2025 3:08pm Presence of stent in coronar y artery acute May 29, 2025 3 :08pm Abdominal pain acute May 30, 2025 1:59pm Irritable bowel syndrome acute May 30, 2025 1:59pm Ischemic colitis acute May 1:59pm Duodenal stenosis acute June 022024 1:36pm Dyspnea inactive June 02 1:36pm Pneumonia inactive June 02 1:36pm [facility] Work Phone: 1(976) 911-830703-09-2025 Telephone encounter Note* Telephone Encounter - Sari Parra RN - 01/28/2025 2:35 PM EDT S: Patient's spoke with [facility] nurse regarding medication concern B: Onset [...] pain is not improving Denies fevers. R: [facility] RN called the pharmacy Pharmacy states they have no questions the insurance didn't approve the Ciprofloxacin-dexamethasone suspension Neomycin - Polymyxin HC 4 drops into the affected ear 3 times a day was filled and picked up. [facility] RN relayed the message back to the . Patient's husbandunderstands care advice. No further needs at this time. Patient's instructed to call back with new or worsening symptoms. Reason for Disposition [1] Caller has NON-URGENT medicine question about med that PCP prescribed AND [2] triager unable toanswer question Protocols used: Medication Question Uyuv-IFTET-IM [facility] [id number] Miscellaneous Notes* Telephone Encounter - Sari Parra RN - 01/28/2025 2:35 PM EDT S: Patient's spoke with [facility] nurse regarding medication concern B: Onset [...] pain is not improving Denies fevers. R: [facility] RN called the pharmacy Pharmacy states they [...] unable toanswer question Protocols used: Medication Question Jecn-UATGU-IP documented in this [facility]03-04-2025 Evaluation note* Diagnosis Onset Date Resolution Status [...] Chronic anemia chronic April 25, 2025 6:41am [facility] Work Phone: 1(379) 970-730402-28-2025 Telephone encounter Note* Telephone Encounter - Dipti Stewart - 01/19/2025 1:57 PM EST Patient was inappropriately scheduled as an established patient with Dr. Tse on 05/15/2025. Patient has only seen Dr. Ramirez in the past, so they are a new patient to Dr. Tse. Appointment needs to be 60-minutes. For this reason Patient's appointment time has been rescheduled to 4:00 PM to allow adequate time for appointment. Patient has been notified of appt change via [employer] message. Dipti Stewart [facility]02-28-2025 Miscellaneous Notes* Telephone Encounter - Dipti Stewart - 01/19/2025 1:57 PM EST Patient was inappropriately scheduled as an established patient with Dr. Tse on 05/15/2025. Patient has only seen Dr. Ramirez in the past, so they are a new patient to Dr. Tse. Appointment needs to be 60-minutes. For this reason Patient's appointment time has been rescheduled to 4:00 PM to allow adequate time for appointment. Patient has been notified of appt change via [employer] message. Dipti Stewart documented in this encounterTrinity Health System02-28-2025 History of Present illness Narrative* Mellisa Coats TECHNOLOGIST - 01/19/2025 10:00 AM EST Radiology [...] PATIENT PRESENTS WITH AN IMPLANTABLE OR ATTACHED BULK MATERIALS HANDLING PLANT OPERATOR: No RADIOLOGY DEPARTMENT: CT; Exam(s) Completed: Chest PERIPHERAL IV DATA: Not applicable SIGNED BY: TECHNOLOGIST Bhavya January 19, 2025 10:06 AM documented in this encounterTrinity Health System02-28-2025 NoteHNO ID: [id number] Author: MELLISA COATS TECHNOLOGIST Service: ? Author [...] PATIENT PRESENTS WITH AN IMPLANTABLE OR ATTACHED BULK MATERIALS HANDLING PLANT OPERATOR: No RADIOLOGY DEPARTMENT: CT; Exam(s) Completed: Chest PERIPHERAL IV DATA: Not applicable SIGNED BY: Mellisa Coats, TECHNOLOGIST January 19, 2025 10:06 [facility]02-27-2025 Evaluation note* Diagnosis Onset Date Resolution Status [...] Chronic constipation chronic Nirmal h 2024 8:26am [facility] Work Phone: 1(383) 633-112002-27-2025 Evaluation note* Diagnosis Onset Date Resolution Status [...] Generalized weakness acute April 19, 2025 11:26am [facility] Work Phone: 1(638) 430-175802-27-2025 Evaluation note* Diagnosis Onset Date Resolution Status Admit Date Ischemic cardiomyopathy acute F 2024 1:19pm Presence of biventricular implantable cardioverter-defibrillator acute Febru 2024 1:19pm Anemia chronic January 23 1:02pm [...] Chronic anemia chronic April 25, 2025 6:41am [facility] Work Phone: 1(590) 330-286201-07-2025 Evaluation note* Diagnosis Onset Date Resolution Status [...] of biventricular implantable cardioverter-defibrillator acute Febru dl 2024 1:19pm Anemia chronic January 23 1:02pm Abdominal pain acute January 9:03am Pelvic pain acute February 13, 025 9:03am Chronic constipation chronic Nirmal h 2024 9:03am Abdominal pain acute January 8:26am Blood in stool acute January 8:26am Anemia chronic February 14 8:26am Chronic constipation chronic Nirmal h 2024 8:26am [facility] Work Phone: 1(314) 182-212201-03-2025 Telephone encounter Note* Telephone Encounter - Becky Diaz - 11/24/2024 12:43 PM EST Name of caller: Song Contact phone number: [phone] Relationship to Patient: spouse/SO Provider: Joaquin Practice: [facility] Chief Complaint/Reason for Call: Patient Beatrice, is calling to follow up with Dr. Nuñez after patient appointment with her Gasteoenterologist. He is requesting a call back to discuss what happened at her appointment regarding her colitis diagnosis. He can be reached at [phone]. Best time of day caller can be reached: Any Patient advised that office/PCP has 24-48 business hours to return their call: N/A [id number] Miscellaneous Notes* Telephone Encounter - Becky Diaz - 11/24/2024 12:43 PM EST Name of caller: Song Contact phone number: [phone] Relationship to Patient: spouse/SO Provider: Joaquin Practice: [facility] Chief Complaint/Reason for Call: Patient Beatrice, is calling to follow up with Dr. Nuñez after patient appointment with her Gasteoenterologist. He is requesting a call back to discuss what happened at her appointment regarding her colitis diagnosis. He can be reached at [phone]. Best time of day caller can be reached: Any Patient advised that office/PCP has 24-48 business hours to return their call: N/A documented in this [facility]01-02-2025 Evaluation note* Diagnosis Onset Date Resolution Status Admit Date Chronic abdominal pain inactive Ja nuary 2024 1:56pm Ischemic cardiomyopathy acute J anuary 2024 1:48pm Presence of biventricular implantable cardioverter-defibrillator acute Novua ry 2024 1:48pm Syncope and collapse acute 2024 [...] Chronic constipation chronic Nirmal h 2024 8:26am [facility] Work Phone: 1(446) 192-664912-26-2024 Telephone encounter Note* Telephone Encounter - Karis Radha Bodlen - 11/16/2024 10:17 AM EST Name of caller: Song Contact phone number: [phone] Relationship to Patient: spouse/SO Provider: Dr Marci Nuñez Practice[place] [facility] Chief Complaint/Reason for Call: Song called to let doctor know appointment is set for 12/19/24 with vascular surgeon, and is not sure if that's soon enough. Please advise Best time of day caller can be reached: PM [facility] [id number] Miscellaneous Notes* Telephone Encounter - Karis Bolden - 11/16/2024 10:17 AM EST Name of caller: Song Contact phone number: [phone] Relationship to Patient: spouse/SO Provider: Dr Marci Nuñez Practice: [facility] Chief Complaint/Reason for Call: Song called to let doctor know appointment is set for 12/19/24 with vascular surgeon, and is not sure if that's soon enough. Please advise Best time of day caller can be reached: PM documented in this [facility]12-24-2024 Telephone encounter Note* Telephone Encounter - Ghazala Mccord MD - 11/14/2024 4:08 PM EST Needs to come back in to reassess. In the meantime- can increase from 5mg qid to 10mg tid- messaged patient. [facility]12-24-2024 Miscellaneous Notes* Telephone Encounter - Ghazala Mccord MD - 11/14/2024 4:08 PM EST Needs to come back in to reassess. In the meantime- can increase from 5mg qid to 10mg tid- messaged patient. * Telephone Encounter - Janee Argueta RN - 11/14/2024 9:25 AM EST MELLISSA: 6/26/24 IMPRESSION and PLAN: 69 yo woman with [...] can prescribe to help with this? Pharmacy: [facility] in [place], [place] documented [facility] Telephone encounter Note * Telephone Encounter - [...] stable. F/u 12 months Janee Argueta RN [facility]12-23-2024 Telephone encounter Note* Telephone Encounter - Humaira [...] can prescribe to help with this? Pharmacy: [facility] in [place], [place] [facility]11-28-2024 Evaluation note* Diagnosis Chronic kidney disease, stage 3a (HCC)- Primary documented in this encounter [facility] [id number] Telephone encounter Note* Telephone Encounter - Antonio Lockhart - 10/06/2024 4:26 PM EST Name of caller: Song Contact phone number: [phone] Relationship to Patient: spouse/SO Provider: Dr. Nuñez Practice: [facility] Chief Complaint/Reason for Call: Song wanted to ask Dr. Nuñez to consider long covid for patient. States all the symptoms are there. Requesting a call back to discuss. Please advise. Best time of day caller can be reached: any Patient advised that office/PCP has 24-48 business hours to return their call: [facility] [id number] Miscellaneous Notes* Telephone Encounter - Antonio Lockhart - 10/06/2024 4:26 PM EST Name of caller: Song Contact phone number: [phone] Relationship to Patient: spouse/SO Provider: Dr. Nuñez Practice: [facility] Chief Complaint/Reason for Call: Song wanted to ask Dr. Nuñez to consider long covid for patient. States all the symptoms are there. Requesting a call back to discuss. Please advise. Best time of day caller can be reached: any Patient advised that office/PCP has 24-48 business hours to return their call: documented in this [facility]09-22-2024 NoteHNO ID: [id number] Author: ROXANNE BOO RT(Bairon) Service: ? Author Type: Accounting Manager Cpa Type: Progress Notes Filed: 08/13/2024 11:59 Note [...] PATIENT PRESENTS WITH AN IMPLANTABLE OR ATTACHED BULK MATERIALS HANDLING PLANT OPERATOR: NA CREATININE: Creatinine Date Value Ref Range [...] 1150 PATIENT DISCHARGED TO: Ambulatory patient, left [place] department area. A Diagnostic radioactive procedure has taken place, with no further precautions necessary other than routine body substance precautions. More information regarding radiation safety can be found using this link: [email or web address]-% 20Diagnostic%20Nuclear%20Medicine%20Procedures.pdf SIGNATURE: DIONI Sanchez) PATIENT NAME: Mansi Caro DATE: August 13, 2024 TIME: 11:58 AM PAGER/CONTACT #:[facility]09-22-2024 History of Present illness Narrative* Roxanne Boo [...] PATIENT PRESENTS WITH AN IMPLANTABLE OR ATTACHED BULK MATERIALS HANDLING PLANT OPERATOR: NA CREATININE: Creatinine Date Value Ref Range [...] radiation safety can be found usingthis link: [email or web address]%20Protection%20-% 20Diagnostic%20Nuclear%20Medicine%20Procedures.pdf SIGNATURE: DIONI Sanchez) PATIENT NAME: Mansi Caro DATE: August 13, 2024 TIME: 11:58 AM PAGER/CONTACT #: documented in this [facility]Tr[facility]09-14-2024 Telephone encounter Note * Telephone Encounter - [...] yesterday was 80, and oxygen level 99%, xmnbyaphe21%. States her weight was up 2 pounds from yesterday and will give her lasix 20mg prn per order. Eating and drinking as normal. Bowel as normal with Miralax, urine as normal. States that customer solutions supervisor states he thinks her left side pain [...] Protocols used: Information Only Call - No Odqymu-DDYPB-JC [facility] [id number] Miscellaneous Notes* Telephone Encounter - Dulce Maria [...] yesterday was 80, and oxygen level 99%, ndmiweihh11%. States her weight was up 2 pounds from yesterday and will give her lasix 20mg prn per order. Eating and drinking as normal. Bowel as normal with Miralax, urine as normal. States that customer solutions supervisor states he thinks her left side pain [...] Protocols used: Information Only Call - No Bwxfuf-HKNLF-VX documented in this [facility]09-13-2024 Telephone encounter Note* Telephone Encounter - Anna Zarco RN - 08/04/2024 12:52 PM EDT S: Patient , Song, spoke with CAC nurse regarding no improvement on weakness or fatigue B: Onset of symptoms/concern 08/04/24 A: States they wanted to give status update on patient. Song states no improvement of weakness or fatigue after seeing corrugated sheet material sheeter or vascular surgeon. States patient will be seeing customer solutions supervisor today at 230. Declined triage as they [...] Protocols used: Information Only Call - No Fesuny-TVWXX-VD [facility] [id number] Miscellaneous Notes* Telephone Encounter - Anna Zarco RN - 08/04/2024 12:52 PM EDT S: Patient , Song, spoke with CAC nurse regarding no improvement on weakness or fatigue B: Onset of symptoms/concern 08/04/24 A: States they wanted to give status update on patient. Song states no improvement of weakness or fatigue after seeing corrugated sheet material sheeter or vascular surgeon. States patient will be seeing customer solutions supervisor today at 230. Declined triage as they [...] Protocols used: Information Only Call - No Ovooml-XLZHW-AW documented in this [facility]08-30-2024 History of Present illness Narrative* Yi Rico RT(R) - 07/21/2024 11:30 AM EDT Radiology Service Progress Note PATIENT NAME: Mansi Crao DATE OF SERVICE: July 21, 2024 TIME: [...] PATIENT PRESENTS WITH AN IMPLANTABLE OR ATTACHED BULK MATERIALS HANDLING PLANT OPERATOR: N/A RADIOLOGY DEPARTMENT: CT; Exam(s) Completed: Chest PERIPHERAL IV DATA: Not applicable SIGNED BY: DIONI Mack) July 21, 2024 11:07 AM documented in this encounterTr[facility] Health System08-30-2024 NoteHNO ID: [id number] Author: YI RICO RT(R) Service: ? Author Type: Technologist Type: [...] PATIENT PRESENTS WITH AN IMPLANTABLE OR ATTACHED BULK MATERIALS HANDLING PLANT OPERATOR: N/A RADIOLOGY DEPARTMENT: CT; Exam(s) Completed: Chest PERIPHERAL IV DATA: Not applicable SIGNED BY: Yi Rico, RT(R) July 21, 2024 11:07 [facility]08-20-2024 Telephone encounter Note * Telephone Encounter - Deonna Lozanorichi - 07/11/2024 3:20 PM EDT Name of caller: Ashtyn Contact phone number: [phone] Relationship to Patient: [place] [facility] Provider: Dr. Nuñez Practice: [facility] Chief Complaint/Reason for Call: Ashtyn from [facility] called in regards to a message they received from the office and they are not sure what this was in regards to. Ashtyn is requesting a call back and they can be reached at #[phone]. Please advise. Best time of day caller can be reached: Any Patient advised that office/PCP has 24-48 business hours to return their call: No [facility] [id number] Miscellaneous Notes* Telephone Encounter - Deonna Kemal - 07/11/2024 3:20 PM EDT Name of caller: Ashtyn Contact phone number: [phone] Relationship to Patient: [facility] Provider: Dr. Nuñez Practice: [facility] Chief Complaint/Reason for Call: Ashtyn from [facility] called in regards to a message they received from the office and they are not sure what this was in regards to. Ashtyn is requesting a call back and they can be reached at #[phone]. Please advise. Best time of day caller can be reached: Any Patient advised that office/PCP has 24-48 business hours to return their call: No documented in this encounterSFirelands Regional Medical CenterDahcoi07-10-6600 NoteS: Patient's Song spoke with CAC nurse regarding patient's xray, and referral B: Onset of symptoms/concern today A: Song wants to discuss the result of the patient's xray, and state he with the patient's teacher dramatics and was advised to see a corrugated sheet material sheeter. R: Please call Song at his # [phone] to discuss these issues. Patient understands care advice. No further needs at this time. Patient instructed to call back with new or worsening symptoms. Reason for Disposition [1] Follow-up call from patient regarding patient's clinical status AND [2] information urgent Protocols used: PCP Call - No Nudfbr-ASVCR-VSExxsxV[facility]08-[facility]24 Telephone encounter Note* Telephone Encounter - Bill Deluca RN - 07/11/2024 12:14 PM EDT S: Patient's Song spoke with CAC nurse regarding patient's xray, and referral B: Onset of symptoms/concern today A: Song wants to discuss the result of the patient's xray, and state he with the patient's teacher dramatics and was advised to see a corrugated sheet material sheeter. R: Please call Song at his # [phone] to discuss these issues. Patient understands care advice. No further needs at this time. Patient instructed to call back with new or worsening symptoms. Reason for Disposition [1] Follow-up call from patient regarding patient's clinical status AND [2] information urgent Protocols used: PCP Call - No Dmhytx-JNDSX-UV [facility] [id number] Miscellaneous Notes* Telephone Encounter - Bill Deluca RN - 07/11/2024 12:14 PM EDT S: Patient's Song spoke with CAC nurse regarding patient's xray, and referral B: Onset of symptoms/concern today A: Song wants to discuss the result of the patient's xray, and state he with the patient's teacher dramatics and was advised to see a corrugated sheet material sheeter. R: Please call Song at his # [phone] to discuss these issues. Patient understands care advice. No further needs at this time. Patient instructed to call back with new or worsening symptoms. Reason for Disposition [1] Follow-up call from patient regarding patient's clinical status AND [2] information urgent Protocols used: PCP Call - No Eizkfr-PLNPJ-PV documented in this [facility]08-14-[address] [facility]08-07-2024 Telephone encounter Note* Telephone Encounter - Jennifer Garrido Jamiesantiago - 06/28/2024 8:08 AM EDT Name of caller: Song Contact phone number: [phone] Relationship to Patient: Spouse Provider: Practice: Chief Complaint/Reason for Call: Patients Spouse called in to cancel appointment today at 10 am forLab work. Spouse stated he just got home with the Patient from the Emergency Room. Spouse stated the Patient had some labs done in the [place] [facility] and wanted to inform the doctor. Please advise. Best time of day caller can be reached: N/A Patient advised that office/PCP has 24-48 business hours to return their call: N/A [facility] [id number] Miscellaneous Notes* Telephone Encounter - Jennifer Garrido Peggy - 06/28/2024 8:08 AM EDT Name of caller: Song Contact phone number: [phone] Relationship to Patient: Spouse Provider: Practice: Chief Complaint/Reason for Call: Patients Spouse called in to cancel appointment today at 10 am forLab work. Spouse stated he just got home with the Patient from the Emergency Room. Spouse stated the Patient had some labs done in the [place] [facility] and wanted to inform the doctor. Please advise. Best time of day caller can be reached: N/A Patient advised that office/PCP has 24-48 business hours to return their call: N/A documented in this [facility]06-26-2024 History of Present illness Narrative* Ghazala Mccord MD - 05/17/2024 2:26 PM EDT Rehabilitation [...] noted at rest but better with activity. MILL OPERATOR HEAD D placed on 05/12/22. Ongoing issues: Feeling [...] hypokalemia and dehydration with that hosptilzation at [facility] Recent cataract removal b/l No new N/T [...] which included preparing to see the patient, gwzd-sd-jlsz patient care, completing clinical documentation, performing a medically appropriate examination, counseling and educating the patient/family/caregiver, and ordering medications, tests,or procedures. documented in this encounterTr[facility] Health System04-22-2024 Discharge summary Author Alonso Marte [facility] March 13, 2024 5:55pm Note Date/Time March 13, 2024 5:5 0pm [facility] Medical Records Department [address] [place] [address] Discharge Summary 03/13/24 1747 MR#: [id number] Acct: [id number] Name: MANSI CARO Rep #:[id number] : 1955 69 From: Alonso Marte MD PCP: Dr. Adrienne Byers, DO Status:ADM IN Location: [facility] TCU08-1 Providers Date of Admission: 02/29/24 Primary Care [...] Depression - Escitalopram 10mg daily, stable chronic therapeutic recreation director use, GDR not recommended. * Diabetes Mellitus [...] dischargehome with . Discharge home with 03/15/2024, [facility] PT/OT/ST/SN. Physical Exam Const alert General Appearance: [...] pain Additional Instructions: Discharge home with 03/15/2024, [facility] PT/OT/ST/SN. Please Follow Up With: Shan Lockett [...] for Your Visit: Debility. Attending Provider: Alonso Maret Chi Primary Care Provider: Adrienne Byers Instructions Additional Instructions / Restrictions: Discharge home with 03/15/2024, [facility] PT/OT/ST/SN. Discharge Orders/Prescriptions Prescriptions: New acetaminophen 500 [...] can be placed): Home Health Service 03/13/24 3544 <Electronically signed by Alonso Marte MD> Cosigner Signature (if applicable): CC: Dr. Adrienne Byers DO; Dr. Alonso Marte MD~ Signed [facility] Work Phone: 1(325) 890-851904-10-2024 Progress note Author Alonso [facility] March 01, 2024 4:01pm Note Date/Time March 01, 2024 2:5 6pm [facility] Medical Records Department [address] [place] [address] Progress Note - Pharmacy 03/01/24 1452 MR#: [id number] Acct: [id number] Name: MANSI CARO Rep #:[id number] : 1955 69 From: Carlotta Singletary PCP: Dr. Adrienne Byers DO Status:ADM IN Location: [place] [address] Documented by User: Carlotta Singletary 03/01/24 15:37 [...] Aspirin E.C. 81 Mg Tablet PO DAILYCM [facility] Atorvastatin Calcium 40 mg 02/29/24 22:00 02/29/24 [...] 10 Mg Capsule PO 20 mg TIDAC [facility] Administration Empagliflozin 10 mg 03/01/24 10:00 03/01/24 08:51 Empagliflozin 10 Mg Tablet PO 10 mg DAILY [facility] Administration Escitalopram Oxalate 10 mg 03/01/24 10:00 03/01/24 08:54 Escitalopram Oxalate 10 Mg Tablet PO 10 mg DAILY [facility] Administration Metformin HCl 500 mg 03/07/24 08:00 Metformin (Xr) 500 Mg [facility] Metoprolol Succinate 12.5 mg 03/01/24 10:00 03/01/24 08:52 Metoprolol(Xl)Succ 25 Mg Tablet PO 12.5 mg DAILY VERONA Administration Protocol Multivitamins 1 tablet 03/01/24 08:00 03/01/24 08:49 Multivitamins,Therapeutic Tablet PO 1 [facility] Administration Nutritional Formula (Lactose Free) 120 ml 03/01/24 12:45 03/01/24 13:39 Glucerna Shake 120 Ml Liquid PO Not Given TIDCM [facility] Pantoprazole Sodium 40 mg 02/29/24 22:00 03/01/24 08:52 Pantoprazole Sodium 40 Mg Tablet PO 40 mg BID [facility] Administration Polyethylene Glycol 17 gm 03/01/24 10:00 03/01/24 08:48 Polyethylene Glycol 3350 17 Gm Packet PO 17 gm DAILY [facility] Administration Potassium Chloride 20 meq 03/01/24 08:00 03/01/24 09:08 Potassium Chloride Oral Tablet 20 Meq [facility] Administration Prochlorperazine Maleate 10 mg 03/01/24 13:07 03/01/24 13:38 Prochlorperazine 5 Mg Tablet PO 10 mg Q4H PRN PRN Administration NAUSEA/VOMITING Sacubitril/Valsartan 0.5 each 02/29/24 22:00 03/01/24 08:50 Sacubitril/Valsartan 24/26 Mg Tablet PO 0.5 each BID [facility] Administration Sodium Chloride 10 - 40 ml [...] 25 Mg Tablet PO 12.5 mg MOWEFR [facility] Administration Protocol Tolterodine Tartrate 2 mg 03/01/24 [...] User: Dr. Alonso Marte MD 03/01/24 16:01 TCU RX Drug Regimen Review Provider Comments Provider responsibility Provider Comments to Recommendations by Pharmacy: Agree 03/01/24 1537 <Electronically signed by Carlotta Singletary> Carlotta Singletary Cosigner Signature (if applicable): 03/01/24 1601 <Electronically signed by Alonso Marte MD> CC: ~ Signed [facility] Work Phone: 1(681) 602-732904-09-2024 History and physical note Author Alonso Estuardo [facility] February 29, 2024 8:00pm Note Date/Time February 29, 2024 7:43 pm [facility] Medical Records Department [address] [place] [address] History & Physical Exam 02/29/241933 MR#: [id number] Acct: [id number] Name: MANSI CARO Rep #:[id number] : 1955 69 From: Alonso Marte MD PCP: Dr. Adrienne Byers, DO Status:ADM IN Location: [place] [address] HPI - General General Date of Admission: 02/29/24 Date of Service: 02/29/24 Chief Complaint: Here for rehabilitation. HPI Narrative 02/21/2024 MANSI CARO, is a 69 Female who presents to [facility] ED with abdominal pain. Abdominal pain, nausea, [...] Morphine, Zofran, Unasyn given. 02/21/2024 Admit to [facility]. IV antibiotics, consult GI for colitis. Repeat [...] to discharge home with . [facility] Medical History (Updated 02/29/24 @ 19:[address] Alonso Marte MD) Anxiety and depression AV node dysfunction Cardiac resynchronization therapy defibrillator (MILL OPERATOR HEAD-D) in place Cerebral palsy Congestive heart failure [...] qhs, Trazodone 50mg qhs prn, stable chronic prison use, GDR not recommended. * Abdominal cramping - Dicyclomine 20mg tidac. * HFrEF - Metoprolol succinate 15mg daily, Entresto 24/26mg 1/2 tablet bid, Jardiance 10mg daily, Aldactone 12.5mg mwf. * Nutrition - Ensure 120ml 4x/day, MVI daily. * Depression - Escitalopram 10mg daily, stable chronic prison use, GDR not recommended. * Diabetes Mellitus II - Metformin XR 500mg daily. * GERD - Pantoprazole 40mg bid. * Overactive bladder - Tolterodine 2mg daily. 02/29/241999 <Electronically signed by Alonso Marte MD> Cosigner Signature (if applicable): CC: Dr. Adrienne Byers DO; Dr. Alonso Marte MD~ Signed [facility] Work Phone: 1(585) 503-393804-09-2024 Progress note Author Yoandy [facility] February 29, 2024 10:26am Note Date/Time February 29, 2024 10:2 6am [facility] Medical Records Department [address] [place] [address] Progress Note - Infect Disease 02/29/24 1025 MR#: [id number] Acct: [id number] Name: MANSI CARO Rep #:[id number] : 1955 69 From: Yoandy waddell MD PCP: Dr. Adrienne Byers DO Status:ADM IN Location: [facility] [id number] Physical Exam Narrative Feeling better, abd pain [...] Cosigner Signature (if applicable): CC: ~ Signed [facility] Work Phone: 1(774) 887-930804-09-2024 Discharge summary Author Ganesh Kiran [facility] February 29, 2024 11:33am Note Date/Time February 29, 2024 7:35 am [facility] Medical Records Department [address] [place] [address] Transfer to [facility] MR#: [id number] Acct: [id number] Name: MANSI CARO Rep #:[id number] : 1955 69 From: Ganesh Amaya PCP: Dr. Adrienne Byers, DO Status:ADM IN Certification of patient admission REQUIRED AT TIME OF ADMISSION. I CERTIFY THAT POST-HOSPITAL ECF SERVICES ARE REQUIRED TO BE GIVEN ON AN IN-PATIENT BASIS BECAUSE OF THE ABOVE NAMED PATIENT'S NEED FOR SNF CARE ON A CONTINUING BASIS FOR THE [...] to 6. * Patient was evaluated by teacher dramatics 02/27: Patient passing flatus but no bowel [...] required. DVT prophylaxis: SCDs. Discussed with the correctional casework specialist. Patient's wanted to go to TCU. Allergies/Procedures [...] PO Q4H PRN PRN (Reason: Fever, pain 1-10/10) Qty: 0 0RF budesonide 3 mg Capsule,Delayed,Extend.Release [...] in before D/C Order can be placed): [facility] 02/29/24 0553 <Electronically signed by Ganesh Kiran MD> Cosigner Signature (if applicable): CC: Dr. Ben Johnson DO; Dr. Adrienne Byers DO; Dr. Heike Horta MD; Dr.Robert Ariane MD ~ [facility] Work Phone: 1(677) 325-602104-08-2024 Progress note Author Shan Friend [facility] February 28, 2024 5:29pm Note Date/Time February 28, 2024 5:30 pm [facility] [facility] Medical [facility] Department [address] [place] [address] Progress Note - GI 02/28/24 1727 MR#: [id number] Acct: [id number] Name: MANSI CARO Rep #:[id number] : 1955 69 From: Shan Lockett DO PCP: Dr. Adrienne Byers DO Status:ADM IN Location: [place] [address]-1 Subjective Subjective Patient's diarrhea has subsided with [...] (Auto) 44.0 L, Lymph % (Auto) 44.4 H,[place] % (Auto) 6.9, Eos % (Auto) 4.3, [...] that plan. Charges/Coding Visit Charges Inpatient E&M: 02739 Subs Hosp L3 02/28/24 1729 <Electronically signed by Shan Friend DO> Cosigner Signature (if applicable): CC: ~ Signed [facility] Work Phone: 1(415) 783-406104-08-2024 Progress note Author Ganesh Kiran [facility] February 28, 2024 1:13pm Note Date/Time February 28, 2024 8:26 am [facility] Medical Records Department [address] [place] [address] Progress Note - Hospitalist 02/28/24822 MR#: [id number] Acct: [id number] Name: MANSI CARO Rep #:[id number] : 1955 69 From: Ganesh Amaya PCP: Dr. Adrienne Byers, Status:ADM IN Location: [address] Reason for Visit Reason for Visit: Diagnoses [...] (Auto) 44.0 L, Lymph % (Auto) 44.4 H,[place] % (Auto) 6.9, Eos % (Auto) 4.3, [...] to 6. * Patient was evaluated by teacher dramatics 02/27: Patient passing flatus but no bowel [...] required. DVT prophylaxis: SCDs. Discussed with the correctional casework specialist. Patient's wanted to go to TCU. Charges/Coding Visit Charges Inpatient E&M: 75045 Subs Hosp L2 02/28/24 1313 <Electronically signed by Ganesh Kiran MD> Cosigner Signature (if applicable): CC: ~ Signed [facility] Work Phone: 1(909) 454-803604-08-2024 Consult note Author Yoandy Thakkar [facility] February 28, 2024 1:02pm Note Date/Time February 28, 2024 1:02 pm [facility] Medical Records Department [address] [place] [address] Consultation - Infectious Dx 02/28/24 1258 MR#: [id number] Acct: [id number] Name: MANSI CARO Rep #:[id number] : 1955 69 From: Yoandy waddell MD PCP: Dr. Adrienne Byers, DO Status:ADM IN Location: [place] [address] Assessment & Plan Assessment/Plan (1) Colitis: PLAN: [...] neg except as noted above. [facility] Medical History Anxiety and depression AV node dysfunction Cardiac resynchronization therapy defibrillator (MILL OPERATOR HEAD-D) in place Cerebral palsy Congestive heart failure [...] mg tablet 20 mg PO QHS depression 12/28/14 [History Last Taken 10/06/23] clonazepam 1 mg [...] (Auto) 44.0 L, Lymph % (Auto) 44.4 H,[place] % (Auto) 6.9, Eos % (Auto) 4.3, [...] Heike Horta MD; Dr.Robert Ariane MD~ Signed [facility] Work Phone: 1(238) 315-833304-08-2024 Consult note Author Bill Victor [facility] February 28, 2024 2:46am Note Date/Time February 28, 2024 2:46 am [facility] Medical Records Department [address] [place] [address] Pharmacokinetic/Renal -Consult 02/28/24 0245 MR#: [id number] Acct: [id number] Name: MANSI CARO Rep #:[id number] : 1955 69 From: Bill Charlton od PCP: Dr. Adrienne Byers DO Status:ADM IN Location: [place] [address] Consult Antibiotic Management Pharmacy has been consulted [...] signed by Bill bassett> Date _ Bill Victor Cosigner Signature (if applicable): Date CC: ~ Signed [facility] Work Phone: 1(400) 216-294504-07-2024 Progress note Author Shan Friend [facility] February 27, 2024 2:30pm Note Date/Time February 27, 2024 2:30 pm [facility] Medical Records Department [address] [place] [address] Progress Note - GI 02/27/24 1429 MR#: [id number] Acct: [id number] Name: MANSI CARO Rep #:[id number] : 1955 69 From: Shan Lockett DO PCP: Dr. Adrienne Byers, DO Status:ADM IN Location: [facility]3 BP109-6 Subjective Subjective Patient states that her abdominal [...] Neut % (Auto) 69.4, Lymph % (Auto) 22.4,[place] % (Auto) 6.2, Eos % (Auto) 1.5, [...] medication regimen. Charges/Coding Visit Charges Inpatient E&M: 41668 Subs Hosp L3 02/27/24 1430 <Electronically signed by Shan Lockett DO> Cosigner Signature (if applicable): CC: ~ Signed [facility] Work Phone: 1([phone]) 409-146504-07-2024 Progress note Author Shan Lockett [facility] February 27, 2024 2:21pm Note Date/Time February 26, 2024 3:33 pm [facility] Medical Records Department [address] [place] [address] Progress Note - GI 02/26/24 1533 MR#: [id number] Acct: [id number] Name: MANSI CARO Rep #:[id number] : 1955 69 From: Shan Lockett DO PCP: Dr. Adrienne Byers DO Status:ADM IN Location: [place]3 WD813-0 Subjective Subjective She underwent CT scan abdomen [...] Clarity Clear, Urine pH 5.0, Ur Specific [place] 1.020, Urine Protein 15 H, Urine Glucose [...] 77.6 H, Lymph % (Auto) 15.8 L, [place] % (Auto) 5.7, Eos % (Auto) 0.2, [...] cramping. 02/27/24 1421 <Electronically signed by Shan Lockett DO> Cosigner Signature (if applicable): CC: ~ Signed [facility] Work Phone: 1([phone]) 933-534104-07-2024 Progress note Author Heike Horta [facility] February 27, 2024 11:22am Note Date/Time February 27, 2024 8:46 am [facility] Medical Records Department [address] [place] [address] Progress Note 02/27/24 0839 MR#: [id number] Acct: [id number] Name: MANSI CARO Rep #:[id number] : 1955 69 From: Heike Horta MD PCP: Dr. Adrienne Byers, DO Status:ADM IN [place] [facility] [place]643-[place] Subjective Subjective Patient seen and examined. She [...] Neut % (Auto) 69.4, Lymph % (Auto) 22.4,[place] % (Auto) 6.2, Eos % (Auto) 1.5, [...] awaiting placement Charges/Coding Visit Charges Inpatient E&M: 54233 Subs Hosp L2 02/27/24 1122 <Electronically signed by Heike Horta MD> Heike Horta MD Cosigner Signature (if applicable): CC: ~ Signed [facility] Work Phone: 1(781) 472-194804-06-2024 Progress note Author Heike [facility] February 26, 2024 2:42pm Note Date/Time February 26, 2024 9:13 am [facility] Medical Records Department [address] [facility] [place] [address] Progress Note 02/26/24911 MR#: [id number] Acct: [id number] Name: MANSI CARO Rep #:[id number] : 1955 69 From: Heike Horta MD PCP: Dr. Adrienne Byers, DO Status:ADM IN [place] [facility] [place] FY726-2 Subjective Subjective Patient seen and examined. was [...] Clarity Clear, Urine pH 5.0, Ur Specific [place] 1.020, Urine Protein 15 H, Urine Glucose [...] 77.6 H, Lymph % (Auto) 15.8 L, [place] % (Auto) 5.7, Eos % (Auto) 0.2, [...] awaiting placement Charges/Coding Visit Charges Inpatient E&M: 41993 [facility] Hosp 02/26/24 1442 <Electronically signed by Heike Horta MD> Heike Horta MD Cosigner Signature (if applicable): CC: ~ Signed [facility] Work Phone: 1(735) 997-443104-06-2024 Consult note Author Yoandy Finley [facility] February 26, 2024 11:30am Note Date/Time February 26, 2024 11:2 6am [facility] Medical Records Department [address] [place] [address] [place] [address] Pharmacokinetic/Renal -Consult 02/26/24 1126 MR#: [id number] Acct: [id number] Name: MANSI CARO Rep #:[id number] : 1955 69 From: Yoandy Finley PCP: Dr. Adrienne Byers, DO Status:ADM IN Y Location: [place] [address] Consult Antibiotic Management Pharmacy has been consulted [...] @2130) 02/26/24 1130 <Electronically signed by Yoandy Finley> Date _ Yoandy Ortizigner Signature (if applicable): Date CC: ~ Signed [facility] Work Phone: 1(758) 352-804704-05-2024 Progress note Author Shan Locektt [facility] February 25, 2024 5:51pm Note Date/Time February 25, 2024 5:51 pm [facility] Medical Records Department [address] [facility] [place] [address] Progress Note - GI 02/25/24 1749 MR#: [id number] Acct: [id number] Name: MANSI CARO Rep #:[id number] 07 : 1955 69 From: Shan Lockett DO PCP: Dr. Adrienne Byers, DO Status:ADM [facility] Subject[facility] Subjective Patient's appetite is poor and [...] 02/25/24 14:06 02/25/24 14:06 02/25/24 14:06 02/25/24 14:02/25/24 14:02/25/24 14:06 02/25/24 08:00 Oxygen Flow Rate (L/min) [...] (Auto) 82.7 H, Lymph % (Auto) 10.3 L,[place] % (Auto) 6.3, Eos % (Auto) 0.3, [...] poor appetite. Charges/Coding Visit Charges Inpatient E&M: 22592 Subs Hosp 02/25/24 9666 <Electronically signed by Shan Lockett DO> Cosigner Signature (if applicable): CC: ~ Signed [facility] Work Phone: 1(549) 798-768304-05-2024 Progress note Author Heike Horta [facility] February 25, 2024 4:51pm Note Date/Time February 25, 2024 10:4 1am [facility] Medical Records Department [address] [place] [address] Progress Note 02/25/24 1040 MR#: [id number] Acct: [id number] Name: MANSI CARO Rep #:[id number] : 1955 69 From: Heike Horta MD PCP: Dr. Adrienne Byers, DO Status:ADM IN Location: [place]3 KJ727-3 Subjective Subjective Patient seen and examined. was [...] (Auto) 82.7 H, Lymph % (Auto) 10.3 L,[place] % (Auto) 6.3, Eos % (Auto) 0.3, [...] awaiting placement Charges/Coding Visit Charges Inpatient E&M: 94318 [facility] Hosp 02/25/24 1525 <Electronically signed by Heike Horta MD> Heike [...] baca MD> Date _ Heike Horta MD Signature (if applicable): Date cc: ~* Signed [facility] Work Phone: 1(916) 292-899304-04-2024 Progress note Author Shan Friend [facility] February 24, 2024 5:08pm Note Date/Time February 24, 2024 5:07 pm [facility] Medical Records Department [address] [place] [address] Progress Note - GI 02/24/24 1705 MR#: [id number] Acct: [id number] Name: MANSI CARO Rep #:[id number] : 1955 69 From: Shan Lockett DO PCP: Dr. Adrienne Byers, DO Status:ADM IN [place] [facility] [place] VV837-8 Subjective Subjective Patient had 1 bowel movement. [...] Neut % (Auto) 54.1, Lymph % (Auto) 37.2,[place] % (Auto) 6.1, Eos % (Auto) 2.2, [...] Multi Select Codes Visit Charges Visit Charges: 08659 Subs Hosp L3 02/24/24 170<Electronically signed by Shan Lockett DO> Cosigner Signature (if applicable): cc: ~* Signed [facility] Work Phone: 1(847) 427-561204-04-2024 Progress note Author Heike Horta [facility] February 24, 2024 3:42pm Note Date/Time February 24, 2024 9:35 am [facility] Medical Records Department [address] [place] [address] Progress Note 02/24/24931 MR#: [id number] Acct: [id number] Name: MANSI CARO Rep #:[id number] : 1955 69 From: Heike Horta MD PCP: Dr. Adrienne Byers, Status:ADM IN Location: [place] [address]1 Subjective Subjective Patient seen and examined. She [...] Neut % (Auto) 54.1, Lymph % (Auto) 37.2,[place] % (Auto) 6.1, Eos % (Auto) 2.2, [...] awaiting placement Charges/Coding Visit Charges Inpatient E&M: 08079 Subs Hosp L2 02/24/24 1548 <Electronically signed by Heike Horta MD> Heike Horta MD Cosigner Signature (if applicable): CC: ~ Signed [facility] Work Phone: 1(204) 814-797204-03-2024 Consult note Author Shan Lockett [facility] February 23, 2024 5:03pm Note Date/Time February 21, 2024 5:48 pm [facility] Medical Records Department [address] [place] [address] Consultation - GI 02/21/24 1748 MR#: [id number] Acct: [id number] Name: MANSI CARO Rep #:[id number] : 1955 69 From: Shan Lockett DO PCP: Dr. Adrienne Byers DO Status:ADM IN [facility] H[facility] Consult Data Date of Consult: 02/21/24 [...] to worsening lower GI bleeding. [facility] Medical History Anxiety and depression AV node dysfunction Cardiac resynchronization therapy defibrillator (MILL OPERATOR HEAD-D) in place Cerebral palsy Congestive heart failure [...] (Auto) 88.4 H, Lymph % (Auto) 5.3L, [place] % (Auto) 5.5, Eos % (Auto) 0.0, [...] Clarity Clear, Urine pH 5.0, Ur Specific [place] 1.015, Urine Protein 15 H, Urine Glucose [...] reflux disease. Charges/Coding Visit Charges Inpatient E&M: 78520 SNF Init L2 02/23/24 1703 <Electronically signed by Shan Lockett DO> Cosigner Signature (if applicable): CC: Dr. Ben Johnson, DO; Dr. Adrienne Byers DO~ Signed [facility] Work Phone: 1(505) 460-843004-03-2024 Progress note Author Shan Friend [facility] February 23, 2024 4:56pm Note Date/Time February 23, 2024 4:56 pm [facility] Medical Records Department [address] [facility] [place] [address] Progress Note - GI 02/23/24 1655 MR#: [id number] Acct: [id number] Name: MANSI CARO Rep #:[id number] : 1955 69 From: Shan Lockett DO PCP: Dr. Adrienne Byers, DO Status:ADM IN Location: MS3 SZ139-6 Subjective Subjective She underwent colonoscopy yesterday for [...] Neut % (Auto) 58.7, Lymph % (Auto) 34.0,[place] % (Auto) 5.7, Eos % (Auto) 1.2, [...] bowel regimen. Charges/Coding Visit Charges Inpatient E&M: 34883 Subs Hosp L3 02/23/24 5586 <Electronically signed by Shan Friend DO> Cosigner Signature (if applicable): CC: ~ Signed [facility] Work Phone: 1(580) 525-222404-03-2024 Progress note [facility] February 23, 2024 3:33pm Note Date/Time February 23, 2024 10:0 1am [facility] Medical Records Department [address] [place] [address] Progress Note 02/23/24 0959 MR#: [id number] Acct: [id number] Name: MANSI CARO Rep #:[id number] : 1955 69 From: Heike Horta MD PCP: Dr. Adrienne Byers, DO Status:ADM IN [place] [facility] [place] SR137-7 Subjective Subjective Patient seen and examined. She [...] Neut % (Auto) 58.7, Lymph % (Auto) 34.0,[place] % (Auto) 5.7, Eos % (Auto) 1.2, [...] 24-48 hours. Charges/Coding Visit Charges Inpatient E&M: 70579 Subs Hosp L2 02/23/24 153 <Electronically signed by Heike Horta MD> Heike Horta MD Cosigner Signature (if applicable): CC: ~ Signed [facility] Work Phone: 1(376) 899-807204-02-2024 Procedure [facility] 02-22-2024 Procedure [facility]04-02-[address] [facility] February 22, 2024 2:23pm Note Date/Time February 22, 2024 2:15 pm [facility] Medical Records Department [address] [place] [address] Progress Note 02/22/24 1414 MR#: [id number] Acct: [id number] Name: MANSI CARO Rep #:[id number] : 1955 69 From: Heike Horta MD PCP: Dr. Adrienne Byers, DO Status:ADM IN [facility] Subjective Subjective Patient seen and examined. Her [...] 02/21/24 02/22/24 23:59 23:59 23:59 Intake Total 1111 1793.77 / 1793.77 Balance 1111 1793.77 / 1793.77 Lab / Micro Data [...] (Auto) 88.4 H, Lymph % (Auto) 5.3L, [place] % (Auto) 5.5, Eos % (Auto) 0.0, [...] Clarity Clear, Urine pH 5.0, Ur Specific [place] 1.015, Urine Protein 15 H, Urine Glucose [...] 76.2 H, Lymph % (Auto) 16.1 L, [place] % (Auto) 6.9, Eos % (Auto) 0.1, [...] Antonio Max MD at 18:54 EDT , Physical Exam Const alert and oriented [...] prophylaxis: SCDs. Charges/Coding Visit Charges Inpatient E&M: 74853 [facility] Hosp L3 02/22/24 1423 <Electronically signed by Heike Horta MD> Heike Horta MD Cosigner Signature (if applicable): CC: ~ Signed [facility] Work Phone: 1(861) 687-803904-02-2024 Discharge summary Author Jose Jaime [facility] February 21, 2024 11:34pm Note Date/Time February 21, 2024 2:31 pm [facility] Medical Records Department [address] [place] [address] Emergency Department Summary 02/21/24 MR#: [id number] Acct: [id number] Name: MANSI CARO Rep #:[id number] : 1955 69 From: Jose Liu PCP: Dr. Adrienne Byers, DO Status:ADM IN Location: [place] [address]-1 HPI HPI - GI History of Present [...] some subjective chills but denies any fevers. [facility] Medical History Anxiety and depression AV node dysfunction Cardiac resynchronization therapy defibrillator (MILL OPERATOR HEAD-D) in place Cerebral palsy Congestive heart failure [...] 88.4 H Lymph % (Auto) 5.3 L [place] % (Auto) 5.5 Eos % (Auto) 0.0 [...] Color Urine Clarity Urine pH Ur Specific [place] Urine Protein Urine Glucose (UA) Urine Ketones Urine Occult Blood Urine Nitrite Urine Bilirubin Urine Urobilinogen Ur Leukocyte Esterase Urine RBC Urine WBC Ur Squamous Epith Cells Urine Bacteria Urine Mucus 02/21/24 17:02 WBC RBC Hgb Hct MCV MCH MCHC RDW Std Deviation RDW Coeff of Edita Plt Count MPV Immature Gran % (Auto) Neut % (Auto) Lymph % (Auto) [place] % (Auto) Eos % (Auto) Baso % [...] Clarity Clear Urine pH 5.0 Ur Specific [place] 1.015 Urine Protein 15 H Urine Glucose [...] Provider] - Disposition Disposition: Acute Care Hospital [facility] What to do if you have Problems For any increased pain, shortness of breath, bleeding, nausea or vomiting, chestpain, or any unexpected problems, contact your Primary Care Provider. Call [facility] ([phone]) or report to the closest Emergency Room. Call 911 if necessary. 02/21/242333 <Electronically signed by Jose Jaime DO> Cosigner Signature (if applicable): CC: Dr. Adrienne Byers DO ~ Signed [facility] Work Phone: 1([phone]) 488-372604-01-2024 History and physical note Author Ben Johnson [facility] February 21, 2024 9:35pm Note Date/Time February 21, 2024 9:35 pm [facility] Medical Records Department [address] [place] [address] H&P Exam - Hospitalist 02/21/242124 MR#: [id number] Acct: [id number] Name: MANSI CARO Rep #:[id number] : 1955 69 From: Ben Johnson DO PCP: Dr. Adrienne Byers DO Status:ADM IN Location: [facility]3 RO978-5 HPI - General General Date of Admission: 02/21/24 Date of Service: 02/21/24 Chief Complaint: Abdominal pain, bright red blood in stool HPI Narrative MANSI CARO, is a 69 F who presents to the emergency room at [facility] for evaluation of right red rectal bleeding [...] neoplastic component. Patient will be admitted to [place] [address], she will be placed on IV antibiotics, shewill be seen by gastroenterology, she may need endoscopic procedures. Labs willbe monitored. [facility] Medical History Anxiety and depression AV node dysfunction Cardiac resynchronization therapy defibrillator (MILL OPERATOR HEAD-D) in place Cerebral palsy Congestive heart failure [...] (Auto) 88.4 H, Lymph % (Auto) 5.3L, [place] % (Auto) 5.5, Eos % (Auto) 0.0, [...] Clarity Clear, Urine pH 5.0, Ur Specific [place] 1.015, Urine Protein 15 H, Urine Glucose [...] Colitis-etiology unclear, patient will be admitted to [facility] 3, she was placed on IV [...] able to exclude underlying solid neoplastic component. [facility] need to [facility] this. Total clinical time spent by myself addressing the patient's medical issues, reviewing all of her data, and collaborating with patient's care team: 75 minutes Charges/Coding Visit Charges Inpatient E&M: 76221 Init Hosp L3 02/21/242134 <Electronically signed by Ben Johnson DO> Cosigner Signature (if applicable): CC: Dr. Ben Johnson, DO; Dr. Adrienne Byers DO~ Signed [facility] Work Phone: 1(842) 506-119802-05-2024 Note ORIGINAL EXAMINATION: BONE DENSITOMETRY 12/27/2023 2:34 [...] Date: 12/27/2023 3:14:57 PM [facility] Discharge summary Author Uday Orosco [facility] December 08, 2023 6:11pm Note Date/Time December 08, 2023 4 :37pm [facility] Medical Records Department [address] [place] [address] Emergency Department Summary 12/08/23 MR#: [id number] Acct: [id number] Name: AMNSI CARO Rep #:[id number] : 1955 68 [...] She has not been at her baseline. [facility] Medical History Anxiety and depression AV node dysfunction Cardiac resynchronization therapy defibrillator (MILL OPERATOR HEAD-D) in place Cerebral palsy Congestive heart failure [...] Disposition Disposition: Home, Self Care Capacity Legal Assessment Clinician Reflex Medical hold order details:: IF a medical hold is selected below, a suggested order for a MEDICAL HOLD will reflex upon signing the document. Next of kin: [place] law dictates a PRIORITY LIST for identifying [...] your Primary Care Provider. Call [facility] ([phone]) or report to the closest Emergency Room. Call 911 if necessary. 12/08/23 181 <Electronically signed by Uday Orosco DO> Cosigner Signature (if applicable): CC: Dr. Adrienne Byers DO ~ Signed [facility] Work Phone: [phone]) 792-464411-29-2023 History of Present illness Narrative* Sherif Ramirez MD - 10/20/2023 3:30 PM EST [facility] - FOLLOW UP EVALUATION Jesus Manuel Martinez DO, DO [address] [facility] [address] Dear Jesus Manuel Martinez DO, DO: I had the pleasure of [...] her . We had a visit using: [employer] I have communicated my name and active licensure. The patient's identity and physical location wereverified at the time of this visit. Either the patient or their legal client relations representative has been informed of the risks [...] Flowsheet Row Appointment from 10/20/2023 in [facility] Office Visit from 05/12/2023 in Rehab Medicine [...] Associate Staff Movement [facility] Discharge summary Author Camacho Aguilar [facility] October 12, 2023 11:27am Note Date/Time October 12, 2023 11:25am [facility] Medical Records Department [address] [place] [address] Instructions for Home/Discharge Instructions 10/12/23 1124 MR#: [id number] Acct: [id number] Name: MANSI CARO Rep #:[id number] : [...] MD; Dr. Adrienne Byers DO ~ Signed [facility] Work Phone: 1(937) 724-755411-20-2023 Progress note Author Camacho Aguilar [facility] October 11, 2023 10:04am Note Date/Time October 11, 2023 10:04am [facility] Medical Records Department [address] [place] [address] Progress Note - Hospitalist 10/11/23 1001 MR#: [id number] Acct: [id number] Name: MANSI CARO Rep #:[id number] : 1955 68 From: Camacho renner MD PCP: Dr. Adrienne Byers, Status:ADM [place] Location: [place] [address] Subjective Subjective Doing well, no issues overnight. [...] 33.5 L, Lymph % (Auto) 54.9 H, [place] % (Auto) 8.3, Eos % (Auto) 2.5, [...] DVT: Lovenox Charges/Coding Visit Charges Inpatient E&M: 24234 Subs Hosp L2 10/11/23 1004 <Electronically signed by Camacho Aguilar MD> Cosigner Signature (if applicable): CC: ~ Signed [facility] Work Phone: 1(240) 598-526811-19-2023 Progress note Author Tony Mayer [facility] October 10, 2023 10:13am Note Date/Time October 10, 2023 7:57am [facility] Medical Records Department [address] [place] [address] Progress Note - Hospitalist 10/10/23 0754 MR#: [id number] Acct: [id number] Name: MANSI CARO Rep #:[id number] : 1955 68 From: Tony aMyer MD PCP: Dr. Adrienne Byers, DO Status:ADM ANGELIA Location: [place] [address] Reason for Visit Reason for Visit: Diagnoses [...] 35 Minutes Charges/Coding Visit Charges Inpatient E&M: 26746 Subs Hosp L2 10/10/23 1013 <Electronically signed by Tony Mayer MD> Cosigner Signature (if applicable): CC: ~ Signed [facility] Work Phone: 1(620) 917-232311-18-2023 Progress [facility] October 09, 2023 9:43am Note Date/Time October 09, 2023 9:15am [facility] Medical Records Department [address] [place] [address] Progress Note - Hospitalist 10/09/23911 MR#: [id number] Acct: [id number] Name: MANSI CARO Rep #:[id number] : 1955 68 From: Tony Mayer MD PCP: Dr. Adrienne Byers, DO Status:ADM [place]ELIA Location: [place] [address] Reason for Visit Reason for Visit: Diagnoses [...] Signed: Moisés Ortega MD at 18:21 EST Reading Location ID and State: [address] [place] [address] Tel , Service support , Physical Exam Narrative GENERAL: cooperative HEENT: [...] 35 Minutes Charges/Coding Visit Charges Inpatient E&M: 34495 Subs Hosp L2 10/09/23 0943 <Electronically signed by Tony Mayer MD> Cosigner Signature (if applicable): CC: ~ Signed [facility] Work Phone: 1(641) 437-455511-17-2023 Progress note Author Tony Dewittsantiago [facility] October 08, 2023 12:45pm Note Date/Time October 08, 2023 8:45am [facility] Medical Records Department [address] [place] [address] Progress Note - Hospitalist 10/08/23 0844 MR#: [id number] Acct: [id number] Name: MANSI CARO Rep #:[id number] : 1955 68 From: Tony Mayer MD PCP: Dr. Adrienne Byers, DO Status:ADM ANGELIA Location: [place] [address] Reason for Visit Reason for Visit: Diagnoses [...] (Auto) 41.7 L, Lymph % (Auto) 47.6 H,[place] % (Auto) 9.0, Eos % (Auto) 0.9, [...] 41.9 L, Lymph % (Auto) 45.5 H, [place] % (Auto) 9.3, Eos % (Auto) 2.5, [...] Signed: Yousif Elena MD at 13:10 EST Reading Location ID and State: [facility] / [place] , Service support , ADDENDUM: 10/07/23 1317 IMPRESSION: Plaque formation [...] 50 Minutes Charges/Coding Visit Charges Inpatient E&M: 65079 [facility] Hosp 10/08/23 1245 <Electronically signed by Tony Mayer MD> Cosigner Signature (if applicable): CC: ~ Signed [facility] Work Phone: 1(201) 289-411111-16-2023 Discharge summary Author David Best [facility] October 07, 2023 4:57pm Note Date/Time October 07, 2023 1:03pm [facility] Medical Records Department [address] [place] [address] Emergency Department Summary 10/07/23 MR#: [id number] Acct: [id number] Name: MANSI CARO Rep #:[id number] : 1955 68 From: David Weller PCP: Dr. Adrienne Byers, DO Status:ADM ANGELIA Location: [place] [address] HPI History of Present Illness Chief Complaint: Stroke Alert Informant: patient, spouse/S.O. and SNF Narrative Narrative: Brought down from TCU initially seen in the hallway as a stroke alert starting 15 minutes prior to arrival at 12:15 PM. Patient reports right-sided weakness. History of stroke in the past. She was recently seen this past Wednesday for stroke work- up with similar presentation. Initial evaluation in [facility] had right arm drift, right leg drift [...] MCA infarct. Prior similar symptoms: Yes PFSH PFSH Medical History (Updated 10/07/23 @ 16:[address] David Best, DO) Anxiety and depression AV node dysfunction Cardiac resynchronization therapy defibrillator (MILL OPERATOR HEAD-D) in place Cerebral palsy Congestive heart failure [...] neurologist, hospitalist This note was generated with [employer] dictation software. It may contain incorrectwords, spelling, [...] 41.7 L Lymph % (Auto) 47.6 H [place] % (Auto) 9.0 Eos % (Auto) 0.9 [...] Back by Yousif Elena MD to Dr Le, DO, and understanding confirmed on 10/07/2023 12:53:48 (ET). Electronically Signed: Yousif Elena MD at 12:55 EST , Chest X-Ray 10/07/23 12:37 IMPRESSION: Normal x-ray examination of the chest. 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 Call [facility] ([phone]) or report to the closest Emergency Room. Call 911 if necessary. 10/07/23 1657 <Electronically signed by David Weller> Cosigner Signature (if applicable): CC: Dr. Adrienne Byers, ~ Signed [facility] Work Phone: 1([phone]) 246-181211-16-2023 History and physical note Author Jaci Greco [facility] October 07, 2023 2:38pm Note Date/Time October 07, 2023 1:59pm [facility] Medical Records Department [address] [place] [address] H&P Exam - Hospitalist 10/07/23 1355 MR#: [id number] Acct: [id number] Name: MANSI CARO Rep #:[id number] : [...] and Plavix who now re-presents to the [facility] ED on 10/07/23 with history of [...] patient administered baclofen 10 mg p.o. x1. [facility] Medical History (Updated 10/07/23 @ 14:[address] Jaci Greco MD) Anxiety and depression AV node dysfunction Cardiac resynchronization therapy defibrillator (MILL OPERATOR HEAD-D) in place Cerebral palsy Coronary artery disease [...] (Auto) 41.7 L, Lymph % (Auto) 47.6 H,[place] % (Auto) 9.0, Eos % (Auto) 0.9, [...] and Plavix who now re-presents to the [facility] ED on 10/07/23 with history of [...] 16 minutes. Charges/Coding Visit Charges Inpatient E&M: 52053 Init Hosp L3 Procedures Hospitalists Procedures: 70201 Advncd Care Plan 30 Min 10/07/23 1438 <Electronically signed by Jaci Greco MD> Cosigner Signature (if applicable): CC: Dr. Jaci Greco MD; Dr. Adrienne Byers, DO~ Signed [facility] Work Phone: 1(775) 652-508111-12-2023 Progress note Author Alonso Estuardo [facility] October 03, 2023 1:49pm Note Date/Time October 03, 2023 10:38am [facility] Medical Records Department [address] [place] [address] Progress Note - Pharmacy 10/03/23 1035 MR#: [id number] Acct: [id number] Name: MANSI CARO Rep #:[id number] : 1955 68 From: Talat Cameron PCP: Dr. Adrienne Byers, Status:ADM IN Location: [place] [address] Documented by User: Talat Cameron 10/03/23 11:16 TCU RX Drug Regimen Review Subjective/Objective Subjective/Objective: Subjective: 68 year old female with below past medical history hospitalized for TIA, admitted to TCU with debility, here for rehabilitation, strengthening, prior to discharge home with . Objective: Allergies No Known Allergies Allergy (Verified 09/28/23 20:19) Current Medications Generic Name Dose Route Start Last Admin Trade Name Ava PRN Reason Stop Dose Admin Acetaminophen 1,000 [...] Tablet (1,000 Units) PO 50 mcg QHS [facility] Administration Citalopram Hydrobromide 20 mg 10/01/23 22:00 10/02/23 21:38 Citalopram 20 Mg Tablet PO 20 mg QHS [facility] Administration Clonazepam 1 mg 10/01/23 22:00 10/02/23 21:37 Clonazepam 1 Mg Tablet PO 1 mg QHS [facility] Administration Clopidogrel Bisulfate 75 mg 10/01/23 22:00 10/02/23 21:37 Clopidogrel Bisulfate 75 Mg Tablet PO 75 mg QHS [facility] Administration Empagliflozin 10 mg 10/02/23 10:00 10/03/23 09:14 Empagliflozin 10 Mg Tablet PO 10 mg DAILY [facility] Administration Enoxaparin Sodium 40 mg 10/02/23 06:00 10/03/23 05:51 Enoxaparin 40 Mg/0.4 Ml Syringe SC 40 mg DAILY@0600 [facility] Administration Magnesium Citrate 300 ml 10/01/23 16:19 Magnesium Citrate 300 Ml PO DAILY PRN Constipation Metformin HCl 500 mg 10/02/23 08:00 10/03/23 09:13 Metformin Hcl 500 Mg Tablet PO 500 mg DAILYCM [facility] Administration Metoprolol Succinate 12.5 mg 10/02/23 10:00 10/03/23 09:15 Metoprolol(Xl)Succ 25 Mg Tablet PO 12.5 mg DAILY [facility] Administration Protocol Multivitamins 1 tablet 10/02/23 08:00 10/03/23 09:13 Multivitamins,Therapeutic Tablet PO 1 tablet DAILYCM [facility] Administration Multivitamins 1 cap 10/02/23 08:00 10/03/23 09:13 Vitamin B Comp W-C Capsule PO 1 cap DAILYCM [facility] Administration Nutritional Formula (Lactose Free) 120 ml [...] 25 Mg Tablet PO MOWEFR [facility] Tolterodine Tartrate 2 mg 10/01/23 15:17 Tolterodine [...] by Alonso Marte MD> CC: ~ Signed [facility] Work Phone: 1(544) 190-422111-10-2023 History and physical note Author Alonso Marte [facility] October 01, 2023 4:18pm Note Date/Time October 01, 2023 4:07pm [facility] Medical Records Department [address] [place] [address] History & Physical Exam 10/01/23 1558 MR#: [id number] Acct: [id number] Name: GORDOMANSI Hema Rep #:[id number] : 1955 68 From: Alonso Marte MD PCP: Dr. Adrienne Byers, DO Status:ADM IN Location: [address] HPI - General General Date of Admission: 10/01/23 Date of Service: 10/01/23 Chief Complaint: Here for rehabilitation. HPI Narrative 09/28/2023 MANSI CARO, is a 68 Female who presents to [facility] Emergency Department with neurologic signs/symptoms. Presents [...] to discharge home with . [facility] Medical History (Updated 10/01/23 @ 16:[address] Alonso Marte MD) Anxiety AV node dysfunction Cardiac resynchronization therapy defibrillator (MILL OPERATOR HEAD-D) in place Congestive heart failure (CHF) Coronary [...] EDEMA 09/28/23 [History Last Taken Unknown] vitamin S58-iszpz acid 1 tab PO DAILY vitamin 09/28/23 [...] Depression - Citalopram 20mg qhs, stable chronic prison use, GDR not recommended. 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 * Diabetes Mellitus [...] - Trazodone 50mg qhs prn, stable chronic prison use, GDR not recommended. * Leg cramp - Vitamin B complex 1 cap daily. 10/01/23 1618 <Electronically signed by Alonso Marte MD> Cosigner Signature (if applicable): CC: Dr. Adrienne Byers DO; Dr. Alonso Marte MD~ Signed [facility] Work Phone: 1(441) 412-683411-10-2023 Discharge summary Author Ben Johnson [facility] October 01, 2023 11:57am Note Date/Time October 01, 2023 11:57am [facility] Medical Records Department [address] [place] [address] Transfer to Extended [facility] MR#: [id number] Acct: [id number] Name: MANSI CARO Rep #:[id number] : 1955 68 From: Ben Johnson DO PCP: Dr. Adrienne Byers DO Status:ADM IN Certification of patient admission REQUIRED AT TIME OF ADMISSION. I CERTIFY THAT POST-HOSPITAL ECF SERVICES ARE REQUIRED TO BE GIVEN ON AN IN-PATIENT BASIS BECAUSE OF THE ABOVE NAMED PATIENT'S NEED FOR SNF CARE ON A CONTINUING BASIS FOR THE CONDITION(S) FOR WHICH HE/SHE WAS RECEIVING IN-PATIENT HOSPITAL SERVICES PRIOR TO HIS/HER TRANSFER TO THE [facility]. 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 Hx of word finding difficulty after CVA [...] patient reports may be inpatient rehab at [facility]. Discharge Plan Admission Admit Date/Time: 09/28/23 [...] water retention) Patient Comments: TAKING NEEDED vitamin F43-btvvo acid 1 tab PO DAILY pantoprazole 40 MG tablet 40 mg PO QHS Patient Comments: decrease stomach acid- pt states she takes prn Changed aspirin 81 mg tablet,delayed release (DR/EC) 81 mg PO 1XD Qty: 1 0RF Patient Comments: TAKE 1 TABLET BY MOUTH EVERY OTHER DAY Referrals / Follow Up: Lary Bhandari DO [Non-Staff] - Adrienne Byers DO [Primary Care Provider] - Disposition Disposition (needs filled in before D/C Order can be placed): Home, Self Care 10/01/23 1157 <Electronically signed by Ben Johnson DO> Cosigner Signature (if applicable): CC: Dr. Tony Corona DO; Dr. Adrienne Byers DO ~ [facility] Work Phone: 1(424) 884-995911-09-2023 Progress note Author Ben Johnson [facility] September 30, 2023 5:30pm Note Date/Time September 30, 2023 5 :30pm [facility] Medical Records Department [address] [place] [address] Progress Note - Hospitalist 09/30/23 1726 MR#: [id number] Acct: [id number] Name: MANSI CARO Rep #:[id number] : 1955 68 From: Ben Johnson DO PCP: Dr. Adrienne Byers, DO Status:ADM IN Location: [place] [address] Reason for Visit Reason for Visit: Diagnoses [...] 09/29/23 14:29 AG (Rec: 09/29/23 14:29 AG [id number]) Nutrition Malnutrition Evidence of Malnutrition Exists Yes [...] Ordering Physician: Tony Corona Referring Physician: Adrienne yBers Performed By: Estefany Ovalle, RVT Brain MRI 09/30/23 09:00 IMPRESSION: No evidence for acute infarct. Chronic cerebral infarcts. Chronic involutional and white matter changes. Electronically Signed: Vida Nails MD at 10:41 EST Reading Location ID and State: [facility] / [place] Tel , Service support , Physical Exam Narrative alert, oriented x3, [...] times a day will be given with [employer] Total clinical time spent by myself addressing patient's medical issues, reviewing all of her data, and collaborating with patient's care team: 35-minutes Charges/Coding Visit Charges Inpatient E&M: 53361 Subs Hosp L2 09/30/23 1730 <Electronically signed by Ben Johnson DO> Cosigner Signature (if applicable): CC: ~ Signed [facility] Work Phone: [phone]) 341-915411-09-2023 Discharge summary Author Ben Johnson [facility] September 30, 2023 11:55am Note Date/Time September 30, 2023 1 1:52am [facility] Medical Records Department [facility] [place] [address] Instructions for Home/Discharge Instructions 09/30/23 1151 MR#: [id number] Acct: [id number] Name: MANSI CARO Rep #:[id number] : 1955 68 From: Ben Johnson DO [...] Provider: Adrienne Byers Consulting Providers: Tony Corona Additional Instructions / Restrictions: Follow-up with your [...] water retention) Patient Comments: TAKING NEEDED vitamin J08-gezhf acid 1 tab PO DAILY pantoprazole 40 MG tablet 40 mg PO QHS Patient Comments: decrease stomach acid- pt states she takes prn Changed aspirin 81 mg tablet,delayed release (DR/EC) 81 mg PO 1XD Qty: 1 0RF Patient Comments: TAKE 1 TABLET BY MOUTH EVERY OTHER DAY Referrals / Follow Up: Lary Bhandari DO [Non-Staff] - Adrienne Byers DO [Primary Care Provider] - Disposition Disposition (needs filled in before D/C Order can be placed): Home, Self Care 09/30/23 1155<Electronically signed by Ben Johnson DO>Ben Johnson DO CC: Dr. Tony Corona, ; Dr. Adrienne Byers DO ~ Signed [facility] Work Phone: [phone]) 330-743711-08-2023 Progress note [facility] September 29, 2023 5:39pm Note Date/Time September 29, 2023 5 :25pm [facility] Medical Records Department [address] [place] [address] Progress Note - Hospitalist 09/29/237 MR#: [id number] Acct: [id number] Name: MANSI CARO Rep #:[id number] : 1955 68 From: Ben Johnson DO PCP: Dr. Adrienne Byers DO Status:ADM IN Location: [place] [address] Reason for Visit Reason for Visit: Diagnoses [...] 09/29/23 14:29 AG (Rec: 09/29/23 14:29 AG [id number]) Nutrition Malnutrition Evidence of Malnutrition Exists Yes [...] (Auto) 40.8 L, Lymph % (Auto) 49.7 H,[place] % (Auto) 7.6, Eos % (Auto) 1.0, [...] Clarity Clear, Urine pH 8.0, Ur Specific [place] 1.010, Urine Protein Negative, Urine Glucose (UA) [...] Physician: Adrienne Hatfield Performed By: Florina Baig, PRESLEY, RVT Physical Exam Const alert, oriented x3, [...] team: 35-minute Charges/Coding Visit Charges Inpatient E&M: 60698 Subs Hosp L2 09/29/23 1739 <Electronically signed by Ben Johnson DO> Cosigner Signature (if applicable): CC: ~ Signed [facility] Work Phone: [phone]) 166-158011-08-2023 History and physical note Author Tony Mejia [facility] September 29, 2023 7:10am Note Date/Time September 28, 2023 1 0:22pm [facility] Medical Records Department [address] [place] [address] H&P Exam - Hospitalist 09/28/232209 MR#: [id number] Acct: [id number] Name: MANSI CARO Rep #:[id number] : 1955 68 From: Tony Williamson DO PCP: Dr. Adrienne Byers DO Status:ADM IN Location: [address] HPI - General General Date of [...] place, depression and osteoarthritis who presents to [facility] ER complaining of strokelike symptoms with [...] that was negative for Parkinson's disease at [place], where she normally receives her care. She denies fever, chills, nausea, vomiting, diarrhea or constipation. Stroke alert was called in the ER with patient outside the window for tPA and already improving clinically with suspicion for a possible CVA due to her PFO and she was then admitted to the [facility] ongoing care for a stay that is expected to be greater than 48 hours. [facility] Medical History Anxiety Cardiac resynchronization therapy defibrillator (MILL OPERATOR HEAD-D) in place Congestive heart failure (CHF) Coronary [...] EDEMA 09/28/23 [History Last Taken Unknown] vitamin E49-rpqho acid 1 tab PO DAILY vitamin 09/28/23 [...] place andoriented to time Coordination / Balance: qahjqq-ow-tmju test normal and ncjm-xz-jcvj test normal Speech: speech normal Motor Exam: [...] (Auto) 40.8 L, Lymph % (Auto) 49.7 H,[place] % (Auto) 7.6, Eos % (Auto) 1.0, [...] Clarity Clear, Urine pH 8.0, Ur Specific [place] 1.010, Urine Protein Negative, Urine Glucose (UA) [...] 55 minutes. Charges/Coding Visit Charges Inpatient E&M: 55716 Init Hosp L2 09/29/23 0710 <Electronically signed by Tony Corona DO> Cosigner Signature (if applicable): CC: Dr. Tony Corona DO; Dr. Adrienne Byers DO~ Signed [facility] Work Phone: 1(153) [phone] Discharge summary Author Uday Orosco [facility] September 28, 2023 10:10pm Note Date/Time September 28, 2023 8 :55pm [facility] Medical Records Department [address] [place] [address] [place] [address] Emergency Department Summary 09/28/23 MR#: [id number] Acct: [id number] Name: MANSI CARO Rep #:[id number] : 1955 68 From: Uday Orosco DO PCP: Dr. Adrienne Byers DO Status:ADM IN Location: [address] History of Present Illness Chief Complaint: [...] spastic right lowerextremity. Patient is on Plavix. PFSH [facility] Medical History Cardiac resynchronization therapy defibrillator (MILL OPERATOR HEAD-D) in place Diabetes mellitus Hyperlipidemia Hypertension Myocarditis [...] EDEMA 09/28/23 [History Last Taken Unknown] vitamin Y80-lmeyk acid PO 09/28/23 [History Last Taken Unknown] [...] 40.8 L Lymph % (Auto) 49.7 H [place] % (Auto) 7.6 Eos % (Auto) 1.0 [...] Clarity Clear Urine pH 8.0 Ur Specific [place] 1.010 Urine Protein Negative Urine Glucose (UA) [...] your Primary Care Provider. Call [facility] ([phone]) or report to the closest Emergency Room. Call 911 if necessary. 09/28/232209 <Electronically signed by Uday Orosco DO> Cosigner Signature (if applicable): CC: Dr. Adrienne Byers DO ~ Signed [facility] Work Phone: 1([phone]) 328-867611-07-2023 Discharge summary Author Uday Orosco [facility] September 28, 2023 10:10pm Note Date/Time September 28, 2023 8 :55pm [facility] Medical Records Department [address] [place] [address] Emergency Department Summary 09/28/23 MR#: [id number] Acct: [id number] Name: MANSI CARO Rep #:[id number] : 1955 68 From: Uday Orosco DO PCP: Dr. Adrienne Byers DO Status:ADM IN Location: [address] History of Present Illness Chief Complaint: [...] spastic right lowerextremity. Patient is on Plavix. [facility] Medical History Cardiac resynchronization therapy defibrillator (MILL OPERATOR HEAD-D) in place Diabetes mellitus Hyperlipidemia Hypertension Myocarditis [...] EDEMA 09/28/23 [History Last Taken Unknown] vitamin K36-ormpz acid PO 09/28/23 [History Last Taken Unknown] [...] 40.8 L Lymph % (Auto) 49.7 H [place] % (Auto) 7.6 Eos % (Auto) 1.0 [...] Clarity Clear Urine pH 8.0 Ur Specific [place] 1.010 Urine Protein Negative Urine Glucose (UA) [...] your Primary Care Provider. Call [facility] ([phone]) or report to the closest Emergency Room. Call 911 if necessary. 09/28/232209 <Electronically signed by Uday Orosco DO> Cosigner Signature (if applicable): CC: Dr. dArienne Byers DO ~ Signed [facility] Work Phone: 1([phone]) 817-972210-31-2023 History of Present illness Narrative* Nirmal Carpio, [...] 1010 PATIENT DISCHARGED TO: Ambulatory patient, left [place] department area. A Diagnostic radioactive procedure has taken place, with no further precautions necessary other than routine body substance precautions. More information regarding radiation safety can be found usingthis link: [email or web address] 20Diagnostic%20Nuclear%20Medicine%20Procedures.[email or web address] SIGNATURE: RT Medina(R) PATIENT NAME: Mansi Caro DATE: September 21, 2023 TIME: 10:00 AM PAGER/CONTACT #: [facility]2023 Note ORIGINAL EXAMINATION: CT OF THE ABDOMEN [...] Sign Date: 09/07/2023 10:17:27 AM Ordering Provider: [facility]10-08-2023 Note . MICRO - Microbiology PROCEDURE: Urine [...] Locations *1: This test was performed at: [address], [facility] ([place])08-04-2023 Hospital Discharge instructions Patient Education 08/04/2023 12:31:44 [...] animal will probably be confined with its press machine feeder for 10 days. If the animal does [...] bats may notbe noticed, especially by children. 4919-0768 The [employer]. [address] [place] [address]. All rights reserved. This information is not intended as a substitute for professional medical care. Always follow yourhealthcare professional's instructions. 08/04/2023 12:31:41 9- AO ED Rabies Follow-up Vaccination ISAAK([facility] Rabies Follow-Up Vaccination Information Sheet SUMMARY After [...] your follow-up rabies vaccinations. OR Call the [facility] at to schedule your follow-up vaccination appointments. Hours: 8a-4:30p, Wednesday through Wednesday OR Call [facility] to schedule your follow-up vaccination appointments. Follow Up Care 08/04/2023 11:57:19 With:ADRIENNE BYERS Address: [address] [facility] [place] [address] [phone] Business (1) When:2-4 days [facility] 09-13-2023 Emergency department Discharge summary [...] BYERS When Within 2-4 days Where: [address] [facility] [place] [address]- [phone] Business (1) Allergies NKA Immunizations This Visit [...] animal will probably be confined with its press machine feeder for 10 days. If the animal does [...] bats may notbe noticed, especially by children. 4174-6826 [employer]. [address] [place] [address]. All rights reserved. This information is not intended as a substitute for professional medical care. Always follow yourhealthcare professional's instructions. [facility] Rabies Follow-Up Vaccination Information Sheet SUMMARY [...] your follow-up rabies vaccinations. OR Call the [facility] at to schedule your follow-up vaccination appointments. Hours: 8a-4:30p, Wednesday through Wednesday OR Call [facility] to schedule your follow-up vaccination appointments. Additional Information VACCINATE! IT SAVES LIVES! Members of the community who have not yet received the COVID-19 vaccine and would like to receive it can visit one of [facility] vaccine clinics. There are many vaccine clinic locations within the [facility]. For locations and available times, please visit www.[email or web address].[place].gov/. It is important to note that some COVID mobile vaccine clinics are held outdoors and may be canceled in rainy or stormy conditions. To learn more about pediatric vaccinations (ages 5-11), we invite you to visit the [facility] webpage. [email or web address]/[email or web address]-Mdsdl-[email or web address]-[email or web address]-[email or web address]-Gxm stions.htmlTo learn more about the COVID-19 vaccine, we invite you to visit the CDC website for a list of frequently asked questions. https://www.cdc.gov/coronavirus/2019-ncov/vaccines/faq.html [facility] Patient Portal Access Instructions: Stay connected with your healthcare team and access your personal medical information anytime with the [employer] Patient Portal. If you would like a full copy of your medical records please contact the [facility] Medical Records Department Wednesday through Wednesday between 8a.m. and 4:30p.m. Please follow the directions below to access the portal: 1.Access the email account you provided upon registration to the [facility].2.Look for an invitation email from [place].3.Open the email and access the invitation link: Accept Invitation to [employer]4.Fill in the required tirado to create your account. Sign into [email or web address] with your username and password that you [...] you will allow to register on the [employer] Patient Portal for access to your information. You can also access the [employer] Patient Portal on the [place] ricardo. Simply click on Health Records under BAUNATData and then click on the Parudi logo. HOW TO SAFELY DISPOSE OF PRESCRIPTION [...] Call your local pharmacy or go to http://bit.ly/3Q0Kf8k to find one close to you.3.Make use of household items: Use cat litter or old coffee grounds to dispose medications if other options arenot available. Mix your drugs with these household products, seal them in an airtight container andthrow it into the garbage. Call [facility]: [phone] to be sure your drugs can be [...] aware that I should contact my doctor. Patient/Assessment Clinician Signature: Date/Time: Relationship to Patient: Witness Name/Signature: Date/Time: [facility]08-10-2023 History of Present illness Narrative * Sherif Ramirez MD - 07/01/2023 9:03 AM EDT [facility] - FOLLOW UP EVALUATION Jesus Manuel Martinez DO [address] [facility] [address] Dear Jesus Manuel Martinez DO: I had the pleasure of seeing Ms. Caro for follow-up today. As you know she is a 68 year old right-handed female with a history of left hand tremor since 2021. She is seen alone. We had a visit using: CarFin I have communicated my name and active licensure. The patient's identity and physical location wereverified at the time of this visit. Either the patient or their legal client relations representative has been informed of the risks and benefits of -- and alternatives to -- treatment through a remote evaluation andconsents to proceed with the evaluation remotely. I have communicated my name and active licensure. The patient's identity and physical location wereverified at the time of this visit. Either the patient or their legal client relations representative has been informed of the risks [...] Office Visit from 05/12/2023 in Rehab [facility] from 10/12/2022 in [facility] T Score 32.4 39.8 [...] Associate Staff Movement disorders Center of Neurological [facility] documented in this encounterTrinity Health System07-19-2023 Note* Exam Date Time Procedure Performing Provider Status 06/09/23 12:53 PM Echocardiogram, Adult (AOH) Auth (Verified) [facility] 06-26-2023 Miscellaneous Notes* Telephone Encounter - Cheri Gill RN - 05/17/2023 3:27 PM EDT This was approved Called left message on identified VM jess Beatrice that this was approved and to check with [facility] pharmacy Called [facility] pharmacy, talked with Orquidea and iman Cespedes They did get it to go through [...] medication on Wed., 05/19/23 documented in this encounterTrinity Health System06-26-2023 Miscellaneous Notes* Telephone Encounter - Cheri Gill RN - 05/17/2023 11:16 AM EDT Images from the original note were not included. * Telephone Encounter - Janee Argueta RN - 05/14/2023 10:48 AM EDT A PA has been submitted via [employer] Name:[email or web address] Phone Number: Patient ID number: [id number] Medication: Baclofen Dosage: 5mg Rios:[id number] PA Janee Argueta RN documented in this encounterTrinity Health System06-23-2023 Miscellaneous Notes* Telephone Encounter - Janee Argueta RN - 05/14/2023 11:17 AM EDT PA submitted via covermymeds. Janee Argueta RN * Telephone Encounter - Ghazala Mccord MD - 05/14/2023 8:56 AM EDT I'll forward to Janee for PA * Telephone Encounter - Humaira Wetzel - 05/13/2023 4:43 PM EDT [facility] Pharmacy was called and the pharmacist suggested [...] and advise. Humaira Wetzel documented in this encounterTrinity Health System06-21-2023 History of Present illness Narrative* Ghazala Mccord [...] noted at rest but better with activity. MILL OPERATOR HEAD D placed on 05/12/22. Ongoing issues: Feeling [...] and is willing to rechallenge [facility]H RN PAST MEDICAL HISTORY Diagnosis Date Anxiety [...] which included preparing to see the patient, guzz-wd-getx patient care, completing clinical documentation, performing a medically appropriate examination, counseling and educating the patient/family/caregiver, and ordering medications, tests,or procedures. documented in this encounterTrinity Health System06-21-2023 Nurse Note* Janee Argueta RN - 05/12/2023 1:24 PM EDT Patient presents for spasticity on right side The following tests/records were reviewed:no Do you need any refills today from the doctor?yes Janee Argueta RN documented in this encounterTrinity Health System12-15-2022 Miscellaneous Notes* Telephone Encounter - Jelly Gomez [...] 6-12 months * Telephone Encounter - Humaira Rashard - 10/12/2022 2:09 PM EST Patient last [...] wait until she returns. documented in this encounterTrinity Health System11-21-2022 History of Present illness Narrative* Sherif Ramirez MD - 10/12/2022 1:45 PM EST [facility] - FOLLOW UP EVALUATION Jesus Manuel Martinez, DO, DO [address] [facility] [address] Martinez, I had the pleasure of seeing Ms. Caro for follow-up today. As you know she is a 67 year old right-handed female with a history of left hand tremor since 2021. She is seen alone. We had a visit using: CarFin I received consent from the patient to [...] Flowsheet Row Appointment from 10/12/2022 in [facility] from 08/10/2022 in [facility] T Score 39.8 37.4 [...] allergic reaction and is willing to rechallenge [facility] RN Current Outpatient Medications Medication Sig [...] research? Not currently Level of service : 26196 (10-19 min). Time spent 15 min on the day of service, which included preparing to see the patient, bwgy-ex-ccse patient care, completing clinical documentation, obtaining and/or [...] Associate Staff Movement disorders Center of Neurological [facility] documented in this encounterTrinity Health System09-29-2022 Hospital Discharge instructions Patient Education 08/19/2022 23:45:42 [...] swelling in the outer vaginal area (labia) 8270-9015 The [employer]. [address] [place] [address]. All rights reserved. This information is not [...] about: All medicines you take, including prescription, mexv-mjr-evaprcv, herbs, and supplements Any other symptoms you [...] Chest, arm, neck, back, or jaw pain 3179-9622 The [employer]. [address] [place] [address] 10283. All rights reserved. This information is not intended as a substitute for professional medical care. Always follow yourhealthcare professional's instructions. Follow Up Care 08/19/2022 14:59:40 With:LARY BHANDARI DO Address: [address] [place] [address] [phone] When:2-4 days [facility] 09-29-2022 Emergency department Discharge summary Discharge Instructions Thank you for allowing [facility] to assist you with your healthcare needs. The following is importantdischarge information regarding your hospital visit. Diagnosis from Today's Visit Generalized weakness Fatigue What to Do Next Instructions from Your Care Team No qualifying data available. Post Acute Orders No qualifying data available. You Need to Schedule the Following Appointments Follow Up with LARY BHANDARI DO When Within 2-4 days Where: [address] [place] [phone] Allergies NKA Medications Please ask your primary [...] swelling in the outer vaginal area (labia) 9585-9077 The [employer]. [address] [place] [address]267. All rights reserved. This information is not intended as a substitute for professional medical care. Always follow yourhealthcare professional's instructions. Dizziness (Uncertain Cause) Dizziness is a common symptom. It may be described as lightheadedness, spinning, or feeling like you are going to faint. Dizziness can have many causes. Be sure to tell the healthcare provider about: All medicines you take, including prescription, akxz-wxt-jeprgqa, herbs, and supplements Any other symptoms you [...] Chest, arm, neck, back, or jaw pain 3271-2854 The [employer]. [address] [place] [address]. All rights reserved. This information is not intended as a substitute for professional medical care. Always follow yourhealthcare professional's instructions. Additional Information VACCINATE! IT SAVES LIVES! Members of the community who have not yet received the COVID-19 vaccine and would like to receive it can visit one of [facility] vaccine clinics. There are many vaccine clinic locations within the [facility]. For locations and available times, please visit [email or web address]. It is important to note that some COVID mobile vaccine clinics are held outdoors and may be canceled in rainy orstormy conditions. To learn more about pediatric vaccinations (ages 5-11), we invite you to visit the [facility] webpage. https://www.[email or web address]/pages/9393-Rlrpc-Ifoytgqdvny-Uaorbmkbbs-Zuttw-Nky stions.htmlTo learn more about the COVID-19 vaccine, we invite you to visit the [facility] website for a list of frequently asked questions. [email or web address]/[email or web address]-[email or web address] _[email or web address].pdf [facility] Patient Portal Access Instructions: Stay connected with your healthcare team and access your personal medical information anytime with the [employer] Patient Portal. If you would like a full copy of your medical records please contact the [facility] Medical Records Department Wednesday through Wednesday between 8a.m. and 4:30p.m. Please follow the directions below to access the portal: 1.Access the email account you provided upon registration to the [facility].2.Look for an invitation email from [facility].3.Open the email and access the invitation link: Accept Invitation to [employer]4.Fill in the required tirado to create your account. Sign into [email or web address] with your username and password that you [...] you will allow to register on the [employer] Patient Portal for access to your information. You can also access the [employer] Patient Portal on the Oscar. Simply click on Health Records under Pheedota and then click on the Katie logo. [...] Call your local pharmacy or go to [email or web address] to find one close to you.3.Make use of household items: Use cat litter or old coffee grounds to dispose medications if other options arenot available. Mix your drugs with these household products, seal them in an airtight container andthrow it into the garbage. Call [facility]: [phone] to be sure your drugs can be [...] aware that I should contact my doctor. Patient/Assessment Clinician Signature: Date/Time: Relationship to Patient: Witness Name/Signature: Date/Time: [facility] [id number] Emergency department Discharge summary Discharge Instructions Thank [...] the Following Appointments Follow Up with LARY BHANDARI DO When Within 2-4 days Where: [address] [place] [phone] Allergies NKA Medications Please ask your primary [...] swelling in the outer vaginal area (labia) 9894-6270 The [employer]. [address] [place] [address], [place] [address]. All rights reserved. This information is not intended as a substitute for professional medical care. Always follow yourhealthcare professional's instructions. Dizziness (Uncertain Cause) Dizziness is a common symptom. It may be described as lightheadedness, spinning, or feeling like you are going to faint. Dizziness can have many causes. Be sure to tell the healthcare provider about: All medicines you take, including prescription, povr-fxl-mjblloq, herbs, and supplements Any other symptoms you [...] Chest, arm, neck, back, or jaw pain 3696-5371 The [employer]. [address] [place] [address]. All rights reserved. This information is not intended as a substitute for professional medical care. Always follow yourhealthcare professional's instructions. Additional Information VACCINATE! IT SAVES LIVES! Members of the community who have not yet received the COVID-19 vaccine and would like to receive it can visit one of [facility] vaccine clinics. There are many vaccine clinic locations within the [facility]. For locations and available times, please visit [email or web address]. It is important to note that some COVID mobile vaccine clinics are held outdoors and may be canceled in rainy orstormy conditions. To learn more about pediatric vaccinations (ages 5-11), we invite you to visit the [facility] webpage. https://www.[email or web address].org/pages/6931-Bgnca-Wkkuakzpdek-Skuvasldfw-Zewoi-Dcu stions.htmlTo learn more about the COVID-19 vaccine, we invite you to visit the [facility] website for a list of frequently asked questions. [email or web address]/slhgb-Vilgimf-Ueqistieay _Asked-Questions.pdf [facility] Patient Portal Access Instructions: Stay connected with your healthcare team and access your personal medical information anytime with the [facility] [employer] [facility] Patient Portal. If you would like a full copy of your medical records please contact the [facility] Medical Records Department Wednesday through Wednesday between 8a.m. and 4:30p.m. Please follow the directions below to access the portal: 1.Access the email account you provided upon registration to the [facility].2.Look for an invitation email from [facility].3.Open the email and access the invitation link: Accept Invitation to [employer]4.Fill in the required tirado to create your account. Sign into [email or web address] with your username and password that you [...] you will allow to register on the [employer] Patient Portal for access to your information. You can also access the [employer] Patient Portal on the Oscar. Simply click on Health Records under [employer] and then click on the Parudi logo. HOW TO SAFELY DISPOSE OF PRESCRIPTION [...] Call your local pharmacy or go to [email or web address].[email or web address] to find one close to you.3.Make use of household items: Use cat litter or old coffee grounds to dispose medications if other options arenot available. Mix your drugs with these household products, seal them in an airtight container andthrow it into the garbage. Call [facility]: [phone] to be sure your drugs can be [...] aware that I should contact my doctor. Patient/Assessment Clinician Signature: Date/Time: Relationship to Patient: Witness Name/Signature: Date/Time: [id number] HCoV 229E RNA ENRIQUE+non-probe Ql (Nph)Not Detected *NA* (08/19/22 4:45 PM)AH Auto Viro/Sero [id number] Note ORIGINAL EXAMINATION: ONE XRAY VIEW OF [...] 08/19/2022 4:42:10 PM Ordering Provider: MARTHA SHER [id number] Note ORIGINAL EXAMINATION: ONE XRAY VIEW OF [...] Sign Date: 08/19/2022 4:42:10 PM Ordering Provider: [facility]09-19-2022 History of Present illness Narrative* Sherif Ramirez MD - 08/10/2022 3:41 PM EDT [facility] - FOLLOW UP EVALUATION Jesus Manuel Martinez, DO, DO [address] [facility] [address] Martinez, I had the pleasure of seeing Ms. Caro for follow up today. she is a 67 year old right-handed female with a history of lef thand tremor since 2021. She is seen with her . We had a visit using: CarFin I received consent from the patient to perform the visit using this platform. Subjective HISTORY OF PRESENT ILLNESS: During her previous visit the following plan was made: Previous plan-06/23/2022 Visit: Tremor -patient will contact us via [employer] messaging should she wish to proceed with [...] Flowsheet Row Appointment from 08/10/2022 in [facility] from 10/30/2021in Spine Medicine [facility] Physical [...] allergic reaction and is willing to rechallenge [facility] RN Current Outpatient Medications Medication Sig [...] Medication Schedule: Medications Level of service : 21424 (20-29 min). Time spent 20 min on the day of service, which included preparing to see the patient, hhxi-uk-kade patient care, completing clinical documentation, obtaining and/or [...] Associate Staff Movement disorders Center of Neurological [facility] documented in this encounterTrinity Health System08-02-2022 Instructions* Patient Instructions* Carleen Denton MD - [...] scans like Clemencia scan. Discuss with your customer solutions supervisor starting Sinemet and send us a message via Credii if you'd like to start the medication Return in about 3 months (around 09/23/2022) for Virtual Visit. If there are any concerns before your next visit, please call or you can send a message through [employer]. You can also now schedule and select appointments through [employer]. Carleen Denton MD documented in this encounterTrinity Health System08-02-2022 History of Present illness Narrative* Sherif Ramirez MD - 06/23/2022 3:23 PM EDT [facility] - NEW PATIENT EVALUATION Ghazala Mccord [address] [facility] [address] Jesus Manuel Martinez, DO, DO [address] [facility] [address] Mccord: thank you for referring [...] EF and she eventually needed insertion of MILL OPERATOR HEAD-D in April. In addition to her new [...] keeping her appointments. She is independent in BAD's. Her grandmother may have had a tremor. [...] and is willing to rechallenge DAH RN Current Outpatient Medications Medication Sig clopidogrel [...] 3+ 2+ Patellar 3+ 2+ Coordination Right: Jzzxdk-rk-juou normal. Rapid alternating movement abnormality: Mild right-sided slowing of finger and hand movements in the context of spasticity. Moderate slowing of left finger and hand movements. Mild slowing is seen in left toe tapping and leg agility.. Left: Pyquxq-nn-uhfn normal. Rapid alternating movement abnormality: Gait Slow [...] the amplitude decrements starting after the 1st dlso-xon-pippx sequence. Arm Movements Right 2-Mild. a) 3 [...] to discuss the levodopa trial with her customer solutions supervisor to see if there is any cardiac [...] Visit: Tremor -patient will contact us via [employer] messaging should she wish to proceed with Sinemet trial. Virtual follow-up in 3 months Interested in clinical research? Not currently Level of service : 25150 (60-74) min). Time spent 60 min on the day of service, which included preparing to see the patient, evrn-lv-wlzx patient care, completing clinical documentation, obtaining and/or [...] Associate Staff Movement disorders Center of Neurological [facility] documented in this encounterTrinity Health System07-14-2022 History of Present illness Narrative* Ghazala Mccord [...] noted at rest but better with activity. MILL OPERATOR HEAD D placed on 05/12/22. No new N/T [...] reaction and is willing to rechallenge Jose MARIN PAST MEDICAL HISTORY Diagnosis Date Anxiety [...] which included preparing to see the patient, krtc-ye-eloj patient care, completing clinical documentation, performing a medically appropriate examination, counseling and educating the patient/family/caregiver and ordering medications, tests, or procedures. documented in this encounterTrinity Health System07-01-2022 Hospital Discharge instructions Patient Education 05/22/2022 15:09:45 [...] or a fever with an unknown cause. Cxli-yrn-sbjkses medicines will not shorten the duration of [...] your healthcare provider Feeling weak or dizzy 1079-6313 The [employer]. [address] [place] [address]. All rights reserved. This information is not [...] where infectious diseases are common. Many people scrap picker a cold or other virus while [...] you were there Where you stayed (hotel, chilkat house, tent) What you ate and drank If you were bitten by insects or other bugs If you swam in freshwater If you had sex or got a tattoo or piercing while you were there Check the [facility] to get more information about specific infectious diseases in the areas you have traveled. 2560-5006 The [employer]. [address] [place] [address]. All rights reserved. This information is not intended as a substitute for professional medical care. Always follow [facility] professional's instructions. 05/22/2022 15:07:47 Weakness (Uncertain [...] red color) Loss of consciousness Severe headache 4094-04[address] The [employer]. [address] [place] [address], [place] [address]. All rights reserved. This information is not intended as a substitute for professional medical care. Always follow yourhealthcare professional's instructions. Follow Up Care 05/22/2022 12:44:39 With:LARY BHANDARI DO Address: [address] [place] [phone] When:2-4 days Comments:Schedule appointment for close follow-up.Drink plenty of fluids and rest.Use Tylenol or Advil for fever as needed.Continue current medications.Return to the ED if symptoms worsen. [facility] 07-01-2022 Emergency department Discharge summary Discharge Instructions Thank you for allowing [facility] to assist you with your healthcare needs. The following is importantdischarge information regarding your hospital visit. Diagnosis from Today's Visit Fever Weakness or fatigue What to Do Next Instructions from Your Care Team No qualifying data available. Post Acute Orders No qualifying data available. You Need to Schedule the Following Appointments Follow Up with LARY BHANDARI DO When Within 2-4 days Why: Schedule appointment for close follow-up. Drink plenty of fluids and rest. Use Tylenol or Advil for fever as needed. Continue current medications. Return to the ED if symptoms worsen. Where: [address] [place] [phone] Allergies NKA Medications Please ask your primary doctor or pharmacist before taking any other medication not listed, including over the counter drugs, herbal medications, vitamins and or supplements as they may interact withut [facility] home medications. What How Much When Why [...] or a fever with an unknown cause. Dvjv-yud-qstjhar medicines will not shorten the duration of [...] your healthcare provider Feeling weak or dizzy 6000-1861 The [employer]. [address] [place] [address]. All rights reserved. This information is not [...] where infectious diseases are common. Many people scrap picker a cold or other virus while [...] you were there Where you stayed (hotel, chilkat house, tent) What you ate and drank If you were bitten by insects or other bugs If you swam in freshwater If you had sex or got a tattoo or piercing while you were there Check the [facility] to get more information about specific infectious diseases in the areas you have traveled. 7476-6756 The [employer]. [address] [place] [address]. All rights reserved. This information is not [...] red color) Loss of consciousness Severe headache 6004-2443 The [employer]. [address] [place] [address]. All rights reserved. This information is not intended as a substitute for professional medical care. Always follow yourhealthcare professional's instructions. Additional Information VACCINATE! IT SAVES LIVES! Members of the community who have not yet received the COVID-19 vaccine and would like to receive it can visit one of [facility] vaccine clinics. There are many vaccine clinic locations within the [facility]. For locations and available times, please visit www.gettheshot.coronavirus.[place].org. It is important to note that some COVID mobile vaccine clinics are held outdoors and may be canceled in rainy orstormy conditions. To learn more about pediatric vaccinations (ages 5-11), we invite you to visit the [employer] Childrens webpage. https://www.[facility].org/pages/2253-Syzrk-Jlvtuvmkycq-Zgbwtlrnel-Ykuxa-Fya stions.htmlTo learn more about the COVID-19 vaccine, we invite you to visit the [place] website for a list of frequently asked questions. [email or web address]://[email or web address]/assets/Wubsidxo-qlu-Crxqxxms/gviuc-Xnttprs-Drvmonhwrx _Asked-Questions.pdf [facility] Patient Portal Access Instructions: Stay connected with your healthcare team and access your personal medical information anytime with the [employer] Patient Portal. If you would like a full copy of your medical records please contact the [facility] Wednesday through Wednesday between 8a.m. and 4:30p.m. Please follow the directions below to access the portal: 1.Access the email account you provided upon registration to the [facility].2.Look for an invitation email from [facility].3.Open the email and access the invitation link: Accept Invitation to [employer]4.Fill in the required tirado to create your account. Sign into [email or web address] with your username and password that you [...] you will allow to register on the [employer] Patient Portal for access to your information. You can also access the [employer] Patient Portal on the [place] ricardo. Simply click on Health Records under Mobile-XL and then click on the [employer] logo. HOW TO SAFELY DISPOSE OF PRESCRIPTION [...] Call your local pharmacy or go to http://Next Caller.[employer]/6L0Zx2s to find one close to you.3.Make use of household items: Use cat litter or old coffee grounds to dispose medications if other options arenot available. Mix your drugs with these household products, seal them in an airtight container andthrow it into the garbage. Call [facility]: [phone] to be sure your drugs can be [...] aware that I should contact my doctor. Patient/Assessment Clinician Signature: Date/Time: Relationship to Patient: Witness Name/Signature: Date/Time: [id number] Emergency department Discharge summary Discharge Instructions Thank [...] the Following Appointments Follow Up with LARY BHANDARI DO When Within 2-4 days Why: Schedule appointment for close follow-up. Drink plenty of fluids and rest. Use Tylenol or Advil for fever as needed. Continue current medications. Return to the ED if symptoms worsen. Where: [address] [place] [phone] Allergies NKA Medications Please ask your primary [...] or a fever with an unknown cause. Lrdw-kkj-vasdfyh medicines will not shorten the duration of [...] your healthcare provider Feeling weak or dizzy [phone] The [employer]. [address] [place] [address]. All rights reserved. This information is not [...] where infectious diseases are common. Many people scrap picker a cold or other virus while [...] you were there Where you stayed (hotel, chilkat house, tent) What you ate and drank If you were bitten by insects or other bugs If you swam in freshwater If you had sex or got a tattoo or piercing while you were there Check the [facility] to get more information about specific infectious diseases in the areas you have traveled. 9769-2794 [employer]. [address] [place] [address]. All rights reserved. This information is not [...] red color) Loss of consciousness Severe headache 2813-7508 [employer]. [address] [place] [address]. All rights reserved. This information is not intended as a substitute for professional medical care. Always follow yourhealthcare professional's instructions. Additional Information VACCINATE! IT SAVES LIVES! Members of the community who have not yet received the COVID-19 vaccine and would like to receive it can visit one of [facility] vaccine clinics. There are many vaccine clinic locations within the [facility]. For locations and available times, please visit www.gettheshot.coronavirus.[place].org. It is important to note that some COVID mobile vaccine clinics are held outdoors and may be canceled in rainy orstormy conditions. To learn more about pediatric vaccinations (ages 5-11), we invite you to visit the [facility] webpage. https://www.[facility].org/pages/5578-Wkmdo-Mnltuknhpfq-Cxndhadtjn-Hhmjr-Sqb stions.htmlTo learn more about the COVID-19 vaccine, we invite you to visit the [facility] website for a list of frequently asked questions. https://[email or web address]/assets/Rvhpsggk-ejo-Rwfccjpe/gnqye-Eymoyxo-Yygaywjufa _Asked-Questions.pdf [facility] Patient Portal Access Instructions: Stay connected with your healthcare team and access your personal medical information anytime with the [employer] Patient Portal. If you would like a full copy of your medical records please contact the [facility] Wednesday through Wednesday between 8a.m. and 4:30p.m. Please follow the directions below to access the portal: 1.Access the email account you provided upon registration to the [facility].2.Look for an invitation email from [facility].3.Open the email and access the invitation link: Accept Invitation to [employer]4.Fill in the required tirado to create your account. Sign into [email or web address] with your username and password that you [...] you will allow to register on the [employer] Patient Portal for access to your information. You can also access the [employer] Patient Portal on the [place] [employer]. Simply click on Health Records under Mobile-XL and then click on the [employer] logo. HOW TO SAFELY DISPOSE OF PRESCRIPTION [...] Call your local pharmacy or go to http://Next Caller.[employer]/5P0Kv0p to find one close to you.3.Make use of household items: Use cat litter or old coffee grounds to dispose medications if other options arenot available. Mix your drugs with these household products, seal them in an airtight container andthrow it into the garbage. Call [facility]: [phone] to be sure your drugs can be [...] aware that I should contact my doctor. Patient/Assessment Clinician Signature: Date/Time: Relationship to Patient: Witness Name/Signature: Date/Time: [id number] Emergency department Discharge summary Discharge Instructions Thank [...] the Following Appointments Follow Up with LARY BHANDARI DO When Within 2-4 days Why: Schedule appointment for close follow-up. Drink plenty of fluids and rest. Use Tylenol or Advil for fever as needed. Continue current medications. Return to the ED if symptoms worsen. Where: [address] [place] [phone] Allergies NKA Medications Please ask your primary [...] or a fever with an unknown cause. Yerj-oym-lyvschg medicines will not shorten the duration of [...] your healthcare provider Feeling weak or dizzy 9198-5835 [employer]. [address] [place] [address]. All rights reserved. This information is not [...] where infectious diseases are common. Many people scrap picker a cold or other virus while [...] you were there Where you stayed (hotel, chilkat house, tent) What you ate and drank If you were bitten by insects or other bugs If you swam in freshwater If you had sex or got a tattoo or piercing while you were there Check the [facility] to get more information about specific infectious diseases in the areas you have traveled. 2672-8422 [employer]. [address] [place] [address]. All rights reserved. This information is not [...] red color) Loss of consciousness Severe headache 7509-1125 The [employer]. [address] [place] [address]. All rights reserved. This information is not intended as a substitute for professional medical care. Always follow yourhealthcare professional's instructions. Additional Information VACCINATE! IT SAVES LIVES! Members of the community who have not yet received the COVID-19 vaccine and would like to receive it can visit one of [facility] vaccine clinics. There are many vaccine clinic locations within the [facility]. For locations and available times, please visit www.gettheshot.coronavirus.[place].org. It is important to note that some COVID mobile vaccine clinics are held outdoors and may be canceled in rainy orstormy conditions. To learn more about pediatric vaccinations (ages 5-11), we invite you to visit the [facility] webpage. https://www.[facility].org/pages/9550-Mkofs-Vdypnpdjdbw-Zdnuuntptm-Hgaiq-Ngp stions.htmlTo learn more about the COVID-19 vaccine, we invite you to visit the [facility] website for a list of frequently asked questions. [email or web address]://[email or web address]/assets/Muyayfwf-yrz-Uaotmcxq/kezgq-Rfrqwwc-Qjdfsnegpd _Asked-Questions.pdf [employer] Patient Portal Access Instructions: Stay connected with your healthcare team and access your personal medical information anytime with the [employer] Patient Portal. If you would like a full copy of your medical records please contact the [facility] Wednesday through Wednesday between 8a.m. and 4:30p.m. Please follow the directions below to access the portal: 1.Access the email account you provided upon registration to the hospital.2.Look for an invitation email from [facility].3.Open the email and access the invitation link: Accept Invitation to [employer]4.Fill in the required tirado to create your account. Sign into [email or web address] with your username and password that you [...] you will allow to register on the [employer] Patient Portal for access to your information. You can also access the [employer] Patient Portal on the [employer]. Simply click on Health Records under Mobile-XL and then click on the [employer] logo. HOW TO SAFELY DISPOSE OF PRESCRIPTION [...] Call your local pharmacy or go to http://Next Caller.[employer]/7D7Vu1v to find one close to you.3.Make use of household items: Use cat litter or old coffee grounds to dispose medications if other options arenot available. Mix your drugs with these household products, seal them in an airtight container andthrow it into the garbage. Call [facility]: [phone] to be sure your drugs can be [...] aware that I should contact my doctor. Patient/Assessment Clinician Signature: Date/Time: Relationship to Patient: Witness Name/Signature: Date/Time: [id number] HCoV 229E RNA ENRIQUE+non-probe Ql (Nph)Not Detected *NA* (05/22/22 2:10 PM) Auto Viro[employer]Sero [id number] Note ORIGINAL EXAMINATION: ONE XRAY VIEW OF [...] Sign Date: 05/22/2022 1:15:33 PM Ordering Provider: [facility]07-01-2022 Note ORIGINAL EXAMINATION: ONE XRAY VIEW OF [...] Sign Date: 05/22/2022 1:15:33 PM Ordering Provider: [facility]06-10-2022 Miscellaneous Notes* Telephone Encounter - Humaira Wetzel - 05/01/2022 11:14 AM EDT Mr. Pena, of [facility] [facility] was called and he scheduled an appointment on 06/04/[address] Mccord at the [facility] for f2f appointment. Aware the Rx is only good for 1 month. Patient developed a heart condition in October 2021. * Telephone Encounter - Ghazala Mccord MD - 05/01/2022 9:26 AM EDT She will need to schedule F2F f/u. I will give her 1 month refill until make sure she sets up follow up * Telephone Encounter - Humaira Rashard - 05/01/2022 8:21 AM EDT Patient last visit [facility] on 10/30/2021; Last f2f on 07/10/2021. [...] and advise. Humaira Wetzel [facility] Hospital Discharge instructions Patient Education 04/25/2022 23:46:26 [...] action. To control pain, take prescription or mdkq-ebg-dgjxmef medicines as directed. Unless told not to, [...] Severe headache, neck pain, drowsiness, or confusion 9419-8007 The [employer]. [address] [place] [address]. All rights reserved. This information is not intended as a substitute for professional medical care. Always follow yourhealthcare professional's instructions. Follow Up Care 04/25/2022 23:32:02 With:Go to emergency room if symptoms worsen Address:Unknown When:2-4 days With:LARY BHANDARI DO Address: [address] [place] [address] [phone] When:2-4 days [facility] 03-17-2022 Miscellaneous Notes* Telephone Encounter - Pina Euceda - 02/05/2022 8:10 AM EDT Patient Song Chavez calling in stating him and the patient have questions about the medication Baclofen (Lioresal) that was prescribed. Please advise documented in this encounterTr[facility]02-[facility]-2022 Hospital Discharge instructions Patient Education 12/25/2021 14:06:01 Heart Failure, Diagnosis, Bvzn-ha-Gnqm Heart Failure, Diagnosis Heart failure means that [...] 08/17/2009 Document Revised: 01/26/2020 Document Reviewed: 01/26/2020 [employer] Patient Education 2019 [employer]. Follow Up Care 12/24/2021 01:51:28 With:JAC CHRISTENSEN MD Address: [address] [facility] [address] [facility] [place] [address]- [phone] When:12/30/2021 10:15:00 Comments:THIS APPOINTMENT WILL BE WITH REI SHARIF [facility] 02-02-2022 Evaluation + Plan noteExtracted from: [...] OV Appointment Date:2022 11:00:00 AM Scheduled Provider: Location:[facility] Appointment Type:CV OV Appointment Date:02/12/2022 11:00:00 AM Scheduled Provider:LARY BHANDARI DO Location:[facility] Appointment Type:PC OV Future Scheduled Tests Laboratory* Complete Blood Count 12/09/21 * Complete Metabolic Panel 12/09/21 [facility] 01-14-2022 Hospital Discharge instructions Patient Education 12/05/2021 [...] Slowly return to your usual activities. Take tefi-ohj-yvvzlxr and prescription medicines only as told by [...] 08/03/2002 Document Revised: 04/10/2019 Document Reviewed: 04/10/2019 [employer] Patient Education 2020 [employer]. Follow Up Care 11/22/2021 03:48:42 With:LARY BHANDARI DO Address: [address] [place] [phone]- [phone] When:1-2 days Comments:PLEASE CALL THIS OFFICE TO SCHEDULE A HOSPITAL FOLLOW UP APPOINTMENT. With:HARISH GIFFORD APRN-MONITOR WORKER Address: [address] [place] [address] [address] [place] [address]- [phone] When:12/12/2021 Comments:This is your heart failure appointment. An appointment with your customer solutions supervisor will be made at this visit. With:[facility] Address: [address] [place] [phone]- When: Unknown Comments:The Cardiac Rehab department will call you in 4-5 weeks to schedule you for phase 2. We left you a brochure with information about cardiac rehab. If you have any questions please call [phone]. With:JAC CHRISTENSEN MD [facility] [address] [facility] [place] [address]- [phone] When:2022 11:00:00 [facility] 01-06-2022 HCoV 229E RNA ENRIQUE+non-probe Ql (Nph)Not Detected *NA* (11/27/21 12:42 PM) Auto Viro/Sero [id number] Evaluation + Plan noteExtracted from: Title:Critical care [...] 1 L IV hydration, Rocephin, levofloxacin at [facility]. We will start patient on broad-spectrum antibiotic therapy and will escalate or de-escalate based on culture results IV hydration We will monitor CBC With the concern of Covid pneumonia we will place patient on isolation and repeat Covid test. #DM BS: 193 Glycemic protocol #CKD stage III BUN/CR: 14/, K: 3.6 GFR: 55 We will replete potassium and monitor BMP #DVT prophylaxis: Lovenox#Full code Addendum by MARTHA PILLAI MD on November 22, 2021 18:36:15 EST I independently examined the patient and agree with the statements above. I discussed the case with the patient's at bedside who reports that the patient went to [place] starting on 11/08 and began to develop [...] levofloxacin and ceftriaxone, which were continued from [facility] ED. Can de-escalate to levofloxacin Order brain natriuretic peptide Empiric dose of IV furosemide 40 mg Repeat Covid test negative We will follow up blood and respiratory culture data GI prophylaxis with famotidine DVT prophylaxis with Lovenox Full code 35 minutes of critical care time Future Appointments Appointment Date:02/12/2022 11:00:00 AM Scheduled Provider:LARY BHANDARI DO Location:[facility] Appointment Type:PC OV Diagnostic Tests Pending * Blood Culture (bacterial) 11/22/21 * Blood Culture (bacterial) 11/22/21 [facility] 04-02-2015 History of Past illness Narrative* Problem Noted Date Resolved Date Personal history of colonic polyps 02/21/2015 02/21/2015 documented as of this encounter (statuses as of 03/16/2022) [address]02[address]2015 History of Past illness Narrative* Problem Noted Date Resolved Date Personal history of colonic polyps 02/21/2015 02/21/2015 documented as of this encounter (statuses as of 05/01/2022) [address]02[address]2015 History of Past illness Narrative* Problem Noted Date Resolved Date Personal history of colonic polyps 02/21/2015 02/21/2015 documented as of this encounter (statuses as of 06/04/2022) [address]02[address]2015 History of Past illness Narrative* Problem Noted Date Resolved Date Personal history of colonic polyps 02/21/2015 02/21/2015 documented as of this encounter (statuses as of 06/25/2022) [address] History of Past illness Narrative* Problem Noted Date Resolved Date Personal history of colonic polyps 02/21/2015 02/21/2015 documented as of this encounter (statuses as of 07/02/2022) [address]02-2015 History of Past illness Narrative* Problem Noted Date Resolved Date Personal history of colonic polyps 02/21/2015 02/21/2015 documented as of this encounter (statuses as of 08/10/2022) [address]2015 History of Past illness Narrative* Problem Noted Date Resolved Date Personal history of colonic polyps 02/21/2015 02/21/2015 documented as of this encounter (statuses as of 10/12/2022) [address]2015 History of Past illness Narrative* Problem Noted Date Resolved Date Personal history of colonic polyps 02/21/2015 02/21/2015 documented as of this encounter (statuses as of 11/05/2022) [address]2015 History of Past illness Narrative* Problem Noted Date Resolved Date Personal history of colonic polyps 02/21/2015 02/21/2015 documented as of this encounter (statuses as of 05/14/2023) [address]2015 History of Past illness Narrative* Problem Noted Date Resolved Date Personal history of colonic polyps 02/21/2015 02/21/2015 documented as of this encounter (statuses as of 05/18/2023) [address]2015 History of Past illness Narrative* Problem Noted Date Diagnosed Date Resolved Date Personal history of colonic polyps 02/21/2015 02/21/2015 documented as of this encounter (statuses as of 07/01/2023) [address]2015 History of Past illness Narrative* Problem Noted Date Diagnosed Date Resolved Date Personal history of colonic polyps 02/21/2015 02/21/2015 documented as of this encounter (statuses as of 07/21/2023) [address] History of Past illness Narrative* Problem Noted Date Diagnosed Date Resolved Date Personal history of colonic polyps 02/21/2015 02/21/2015 documented as of this encounter (statuses as of 09/22/2023) [address]2015 History of Past illness Narrative* Problem Noted Date Diagnosed Date Resolved Date Personal history of colonic polyps 02/21/2015 02/21/2015 documented as of this encounter (statuses as of 09/22/2023) [address]2015 History of Past illness Narrative* Problem Noted Date Diagnosed Date Resolved Date Personal history of colonic polyps 02/21/2015 02/21/2015 documented as of this encounter (statuses as of 10/22/2023) [address] History of Past illness Narrative* Problem Noted Date Diagnosed Date Resolved Date Personal history of colonic polyps 02/21/2015 02/21/2015 documented as of this encounter (statuses as of 10/23/2023) [facility] Talat Cameron [facility] October 01, 2023 2:08pm Note Date/Time October 01, 2023 2:08pm [facility] Medical Records Department [address] [place] [address] Counseling Note - Pharmacy 10/01/231407 MR#: [id number] Acct: [id number] Name: MANSI CARO Rep #:[id number] : 1955 68 From: Talat Cameron PCP: Dr. Adrienne Byers, DO Status:ADM IN Y Location: [place] [address] [place] [facility] Recon[facility] Pharmacy Service has performed discharge medication reconciliation for this patient. The patient's discharge medication list was reviewed for discrepancies and discrepancies were resolved. 10/01/23 140 <Electronically signed by Talat waddell> Date _ Talat Gallo Signature (if applicable): Date CC: ~ Signed [facility] Work Phone: Consult note Author Carlotta Singletary [facility] October 12, 2023 11:48am Note Date/Time October 12, 2023 11:40am [facility] Medical Records Department [address] [place] [address] Counseling Note - Pharmacy 10/12/23 1139 MR#: [id number] Acct: [id number] Name: MANSI CARO Rep #:[id number] : 1955 68 From: Carlotta Singletary PCP: Dr. Adrienne Byers, DO Status:ADM ANGELIA Y Location: [place] [address] [place] Med Recon[place] Pharmacy Service has [...] Signature (if applicable): Date CC: ~ Signed [facility] Work Phone: Consult note Author Talat Cameron [facility] February 29, 2024 11:45am Note Date/Time February 29, 2024 11:4 5am [facility] Medical Records Department [address] [place] [address] Counseling Note - Pharmacy 02/29/24 1145 MR#: [id number] Acct: [id number] Name: MANSI CARO Rep #:[id number] : 1955 69 From: Talat Cameron PCP: Dr. Adrienne Byers, DO Status:ADM IN Y Location: [place] [address] [place]acy [place] Recon[place] Pharmacy Service has [...] 02/29/24 02/29/24 1145 <Electronically signed by Talat waddell> Date _ Talat Cameron Cosigner Signature (if applicable): Date CC: ~ Signed [facility] Work Phone: Consult note Author Carlotta Singletary [facility] Note Date/Time June 11, 2025 3:38 pm [facility] Medical Records Department [address] [facility] [place] [address] Counseling Note - Pharmacy 06/11/25 1506 MR#: [id number] Acct: [id number] Name: MANSI CARO Rep #:[id number] : 1955 70 From: Carlotta Singletary PCP: Marci Nuñez DO Status:ADM I N Y Location: [place] [address] Pharmacy [facility] Counseling Pharmacy Service has performed discharge medication reconciliation and counseling for this patient. 1. LISINOPRIL 5MG PO DAILY The patient's discharge medication list was reviewed for discrepancies and discrepancies were resolved. The patient was counseled on the following discharge medications and changes in medications for homegoing were reviewed. The Reason for Use, instructions for use, and potential side effects were reviewed for all new medications. The patient's questions regarding all of their medications were answered. The patient was able to verbally demonstrate an understanding of their dischargemedications. Medications at Discharge Home Medications clonazepam 1 mg tablet 1 mg PO QHS anxiety 11/18/14 trazodone 50 mg tablet 50 mg PO DAILY Anxiety 11/18/14 aspirin 81 mg tablet,delayed release 81 mg PO .COMPLEX heart 10/01/23 rosuvastatin 20 mg tablet 20 mg PO QHS cholesterol 02/21/24 furosemide 20 mg tablet 20 mg PO QDAY PRN for 2lb weight gain 06/13/24 escitalopram oxalate 5 mg tablet 5 mg PO QDAY Mood 11/28/24 polyethylene glycol 3350 17 gram/dose oral powder (Miralax) 17 g PO DAILY Constipation 11/28/24 lamotrigine 100 mg tablet 100 mg PO QDAY Anxiety 01/23/25 ferrous sulfate 325 mg (65 mg iron) tablet (Feosol) 325 mg PO QDAY Supplement 02/13/25 linaclotide 145 mcg capsule (Linzess) 145 mcg PO QAM Constipation #60 caps 02/14/25 deutetrabenazine 6 mg tablet,extended release 24 hr (Austedo XR) 6 mg PO DAILY involuntary Movements 04/19/25 oxycodone 5 mg tablet 5 mg PO Q6H PRN PRN Pain Score 6-10 7 days #28 tabs 04/30/25 pantoprazole 40 mg tablet,delayed release 40 mg PO DAILY 30 days #30 tabs 04/30/25 baclofen 5 mg tablet 5 mg PO DAILY SPASCITY 05/29/25 docusate sodium 100 mg capsule 100 mg PO DAILY CONSTIPATION 05/29/25 metformin 500 mg tablet 500 mg PO BID Diabetes 05/29/25 ondansetron 4 mg disintegrating tablet 4 mg PO Q8H #30 tabs 05/30/25 phenazopyridine 100 mg tablet 100 mg PO TID PRN PRN pain 06/02/25 hyoscyamine sulfate 0.125 mg tablet 0.125 mg PO TID PRN dyspepsia #90 tabs 06/04/25 lisinopril 10 mg tablet 5 mg (1/2 x 10 mg) PO DAILY #30 tabs 06/11/25 06/11/25 7136 <Electronically signed by Carlotta Singletary> Date _ Carlotta Gallo Signature (if applicable): Date CC: ~ Signed [facility] Work Phone: Discharge summary Author Romeo Padron [facility] Note Date/Time April 19, 2025 11:06 am [facility] Medical Records Department [address] [place] [address] Emergency Department Summary 04/19/25 MR#: [id number] Acct: [id number] Name: MANSI CARO Rep #:[id number] : 1955 70 From: Romeo Padron DO PCP: Marci Nuñez DO Status:REG E R Location: ED ADDENDUM by Dr. Bossman Sanders DO on 04/19/25 at 1106 Patient care turned over to [place] awaiting evaluation by social work coordinator for placement to correction facility. Patient was evaluated by social work [...] infection she was brought in for evaluation [facility] Medical History Ischemic colitis History of [...] (patent foramen ovale) Cardiac resynchronization therapy defibrillator (MILL OPERATOR HEAD-D) in place Myocarditis Hyperlipidemia Hypertension Home Medications [...] 0.125 mg tablet 0.125 mg PO TID LA N dyspepsia #90 03/05/25 Unknown Rx tabs [...] home: Yes additional social history: - Song GINA ROS ED Constitutional Constitutional ED: Denies chills [...] to go home and is agreeable to [facility]hab placement. As it is a weekday and morning hours the patient will be evaluated by physical therapy/Occupational Therapy in the ER and social work will be consulted as well. There is hopes that the patient will be able to be sent directly from the ER to a [facility]rehab center. The patient and family were informed [...] 78.3 H Lymph % (Auto) 10.4 L [place] % (Auto) 8.2 Eos % (Auto) 2.5 [...] Clarity Clear Urine pH 6.5 Ur Specific [place] 1.010 Urine Protein 15 H Urine Glucose (UA) 100 H Urine Ketones Negative Urine Occult Blood Negative Urine Nitrite Negative Urine Bilirubin Negative Urine Urobilinogen Normal Ur Leukocyte Esterase Negative Urine RBC 0 SEEN Urine WBC 0 SEEN Ur Squamous Epith Cells 0 SEEN Urine Bacteria 0 SEEN Urine Mucus 0 SEEN Management Discussion w/another healthcare provider: Hospitalist and odd jobs day worker/Case management Discharge Plan Triage Chief Complaint: [...] Primary Care Provider: Marci Nuñez Referrals: Marci Nuñez, [Primary Care Provider] - Print Language: Togolese What to do if you have Problems For any increased pain, shortness of breath, bleeding, nausea or vomiting, chestpain, or any unexpected problems, contact your Primary Care Provider. Call [facility] ([phone]) or report to the closest Emergency Room. Call 911 if necessary. 04/19/25 0633 <Electronically signed by Romeo Padron DO> Cosigner Signature (if applicable): CC: Marci Nuñez DO ~ Signed [facility] Work Phone: Discharge summary Author Maximo Orosco [facility] Note Date/Time April 20, 2025 2:54p m [facility] Medical Records Department [address] [place] [address] Transfer to [facility] MR#: [id number] Acct: [id number] Name: MANSI CARO Rep #:[id number] : 1955 70 From: Maximo levin DO PCP: Marci Nuñez DO Status:ADM I NO Certification of patient admission REQUIRED AT TIME OF ADMISSION. I CERTIFY THAT POST-HOSPITAL ECF SERVICES ARE REQUIRED TO BE GIVEN ON AN IN-PATIENT BASIS BECAUSE OF THE ABOVE NAMED PATIENT'S NEED FOR SNF CARE ON A CONTINUING BASIS FOR THE CONDITION(S) FOR WHICH HE/SHE WAS RECEIVING IN-PATIENT HOSPITAL SERVICES PRIOR TO HIS/HER TRANSFER TO THE F. 04/20/25 1454<Electronically signed by Maximo Kwesi > Diet Diet Order/Speech Therapy: INPATIENT Hospital Diet [...] is a 70-year-old female who presented to [facility] ED on 04/19/2025 with worsening weakness. Short hospital course as noted below. Patient discharged to TCU in stable condition on 04/20. . Acute on chronic debility ? PT/OT/case management [...] in before D/C Order can be placed): [facility] 04/20/25 0468 <Electronically signed by Maximo Orosco DO> Cosigner Signature (if applicable): CC: Marci Nuñez DO ~ [facility] Work Phone: Discharge summary Author Maximo Orosco [facility] Note Date/Time April 20, 2025 2:55p m [facility] Medical Records Department [address] [place] [address] Discharge Summary 04/20/25 1449 MR#: [id number] Acct: [id number] Name: MANSI CARO Rep #:[id number] : 1955 70 From: Maximo levin DO PCP: Marci Nuñez DO Status:ADM I NO [id number] Date of Admission: 04/19/25 Date of [...] is a 70-year-old female who presented to [facility] ED on 04/19/2025 with worsening weakness. [...] in before D/C Order can be placed): [facility] Charges/Coding Visit Charges Inpatient E&M: 13162 Disch Hosp >30min 04/20/25 1455 <Electronically signed by Maximo Orosco DO> Cosigner Signature (if applicable): CC: Dr. Maximo Orosco DO; Marci Nuñez DO~ Signed [facility] Work Phone: Evaluation + Plan note Future Appointments Appointment Date:10/08/2021 02:30:00 PM Scheduled Provider: Location:[facility] Appointment Type:MA Mammogram Screening Bilateral w/ Yoav Appointment Date:10/31/2021 02:00:00 PM Scheduled Provider:LARY BHANDARI DO Location:[facility] Appointment Type:PC OV Future Scheduled Tests Radiology* MA Mammo Screening Bilateral w/ Yoav 10/08/21 [place] Evaluation + Plan note Future Appointments Appointment Date:10/31/2021 02:00:00 PM Scheduled Provider:LARY BHANDARI DO Location:[facility] Appointment Type:PC OV [facility] Evaluation + Plan note Future Appointments Appointment Date:02/12/2022 11:00:00 AM Scheduled Provider:LARY BHANDARI DO Location:[facility] Appointment Type:PC OV [facility] Evaluation + Plan note Future Appointments Appointment Date:2022 11:00:00 AM Scheduled Provider: Location:[facility] Appointment Type:CV OV Appointment Date:02/12/2022 11:00:00 AM Scheduled Provider:LARY BHANDARI DO Location:[facility] Appointment Type:PC OV [place] Evaluation + Plan note Future Appointments Appointment Date:12/30/2021 10:15:00 AM Scheduled Provider:REI SHARIF Location:[facility] Appointment Type:CV OV Appointment Date:2022 11:00:00 AM Scheduled Provider: Location:[facility] Appointment Type:CV OV Appointment Date:02/12/2022 11:00:00 AM Scheduled Provider:LARY BHANDARI DO Location:[facility] Appointment Type:PC OV Future Scheduled Tests Laboratory* Complete Blood Count 12/09/21 * Complete Metabolic Panel 12/09/21 [facility] Evaluation + Plan note Future Appointments Appointment Date:2022 11:00:00 AM Scheduled Provider: Location:[facility] Appointment Type:CV OV Appointment Date:02/12/2022 11:00:00 AM Scheduled Provider:LARY BHANDARI DO Location:[facility] Appointment Type:PC OV Appointment Date:02/17/2022 03:45:00 PM Scheduled Provider: Location:[facility] Appointment Type:CV OV Appointment Date:03/30/2022 02:00:00 PM Scheduled Provider: Location:[facility] Appointment Type:CV Procedure - Echo (Adult) Future Scheduled Tests Laboratory* Complete Blood Count 12/09/21 * Complete Metabolic Panel 12/09/21 [facility] Evaluation + Plan note Future Appointments Appointment Date:02/12/2022 11:00:00 AM Scheduled Provider:LARY BHANDARI DO Location:[facility] Appointment Type:PC OV Appointment Date:02/17/2022 03:45:00 PM Scheduled Provider: Location:[facility] Appointment Type:CV OV Appointment Date:03/30/2022 02:00:00 PM Scheduled Provider: Location:[facility] Appointment Type:CV Procedure - Echo (Adult) [facility] Evaluation + Plan note Future Appointments Appointment Date:03/20/2022 08:45:00 AM Scheduled Provider: Location:[facility] Appointment Type:CV OV Appointment Date:03/30/2022 02:00:00 PM Scheduled Provider: Location:[facility] Appointment Type:CV Procedure - Echo (Adult) Appointment Date:05/15/2022 08:00:00 AM Scheduled Provider:LARY BHANDARI DO Location:[facility] Appointment Type:PC OV Future Scheduled Tests Laboratory* Basic Metabolic Panel 03/10/22 * A1C Hemoglobin 05/15/22 * Lipid Profile 03/10/22 * Vitamin D Level 05/15/22 * Complete Metabolic Panel 05/15/22 * N-Terminal proBNP 03/10/22 [facility] Evaluation + Plan note Future Appointments Appointment Date:03/09/2022 03:45:00 PM Scheduled Provider: Location:[facility] Appointment Type:CV OV Appointment Date:03/20/2022 08:45:00 AM Scheduled Provider: Location:[facility] Appointment Type:CV OV Appointment Date:03/30/2022 02:00:00 PM Scheduled Provider: Location:[facility] Appointment Type:CV Procedure - Echo (Adult) Appointment Date:05/15/2022 08:00:00 AM Scheduled Provider:LARY BHANDARI DO Location:[facility] Appointment Type:PC OV Future Scheduled Tests Laboratory* Basic Metabolic Panel 03/10/22 * A1C Hemoglobin 05/15/22 * Lipid Profile 03/10/22 * Vitamin D Level 05/15/22 * Complete Metabolic Panel 05/15/22 * N-Terminal proBNP 03/10/22 [facility] Evaluation + Plan note Future Appointments Appointment Date:03/09/2022 03:45:00 PM Scheduled Provider: Location:[facility] [place] Appointment Type:CV OV Appointment Date:03/20/2022 08:45:00 AM Scheduled Provider: Location:[facility] Appointment Type:CV OV Appointment Date:03/30/2022 02:00:00 PM Scheduled Provider: Location:[facility] Appointment Type:CV Procedure - Echo (Adult) Appointment Date:05/15/2022 08:00:00 AM Scheduled Provider:LARY BHANDARI DO Location:[facility] Appointment Type:PC OV Future Scheduled Tests Laboratory* A1C Hemoglobin 05/15/22 * Vitamin D Level 05/15/22 * Complete Metabolic Panel 05/15/22 [facility] Evaluation + Plan note Future Appointments Appointment Date:03/20/2022 08:45:00 AM Scheduled Provider: Location:[facility] Appointment Type:CV OV Appointment Date:03/30/2022 02:00:00 PM Scheduled Provider: Location:[facility] Appointment Type:CV Procedure - Echo (Adult) Appointment Date:05/15/2022 08:00:00 AM Scheduled Provider:LARY BHANDARI DO Location:[facility] Appointment Type:PC OV Future Scheduled Tests Laboratory* A1C Hemoglobin 05/15/22 * Vitamin D Level 05/15/22 * Complete Metabolic Panel 05/15/22 [facility] Evaluation + Plan note Future Appointments Appointment Date:03/30/2022 02:00:00 PM Scheduled Provider: Location:[facility] Appointment Type:CV Procedure - Echo (Adult) Appointment Date:05/01/2022 08:45:00 AM Scheduled Provider: Location:[facility] Appointment Type:CV OV Appointment Date:05/15/2022 08:00:00 AM Scheduled Provider:LARY BHANDARI DO Location:[facility] Appointment Type:PC OV Diagnostic Tests Pending * Ferritin 03/20/22 * Transferrin 03/20/22 Future Scheduled Tests Laboratory* A1C Hemoglobin 05/15/22 * Cortisol Drawn in AM 03/20/22 * Vitamin D Level 05/15/22 * Complete Metabolic Panel 05/15/22 * N-Terminal proBNP 04/10/22 Radiology* MRI Cardiac Morph W+W/O Cont Flow/Veloc 03/20/22 [facility] Evaluation + Plan note Future Appointments Appointment Date:03/30/2022 02:00:00 PM Scheduled Provider: Location:[facility] Appointment Type:CV Procedure - Echo (Adult) Appointment Date:04/21/2022 04:30:00 PM Scheduled Provider: Location:[facility] Appointment Type:MRI Cardiac Morph W+W/O Cont Flow/Veloc Appointment Date:05/01/2022 08:45:00 AM Scheduled Provider: Location:[facility] Appointment Type:CV OV Appointment Date:05/15/2022 08:00:00 AM Scheduled Provider:LARY BHANDARI DO Location:[facility] Appointment Type:PC OV Future Scheduled Tests Laboratory* A1C Hemoglobin 05/15/22 * Vitamin D Level 05/15/22 * Complete Metabolic Panel 05/15/22 * N-Terminal proBNP 04/10/22 Radiology* MRI Cardiac Morph W+W/O Cont Flow/Veloc 04/21/22 [facility] Evaluation + Plan note Future Appointments Appointment Date:04/03/2022 03:00:00 PM Scheduled Provider: Location:[facility] Appointment Type:INF Infusion: Venofer (1 Hour) Appointment Date:04/21/2022 04:30:00 PM Scheduled Provider: Location:[facility] Appointment Type:MRI Cardiac Morph W+W/O Cont Flow/Veloc Appointment Date:05/01/2022 08:45:00 AM Scheduled Provider: Location:[facility] Appointment Type:CV OV Appointment Date:05/15/2022 08:00:00 AM Scheduled Provider:LARY BHANDARI DO Location:[facility] Appointment Type:PC OV Future Scheduled Tests Laboratory* A1C Hemoglobin 05/15/22 * Vitamin D Level 05/15/22 * Complete Metabolic Panel 05/15/22 * N-Terminal proBNP 04/10/22 Radiology* MRI Cardiac Morph W+W/O Cont Flow/Veloc 04/21/22 [place] evaluation + Plan note Future Appointments Appointment Date:04/21/2022 04:30:00 PM Scheduled Provider: Location:[facility] Appointment Type:MRI Cardiac Morph W+W/O Cont Flow/Veloc Appointment Date:05/01/2022 08:45:00 AM Scheduled Provider: Location:[facility] Appointment Type:CV OV Appointment Date:05/15/2022 08:00:00 AM Scheduled Provider:LARY BHANDARI DO Location:[facility] Appointment Type:PC OV Future Scheduled Tests Laboratory* A1C Hemoglobin 05/15/22 * Vitamin D Level 05/15/22 * Complete Metabolic Panel 05/15/22 * N-Terminal proBNP 04/10/22 Radiology* MRI Cardiac Morph W+W/O Cont Flow/Veloc 04/21/22 [place] Evaluation + Plan note Future Appointments Appointment Date:05/01/2022 08:45:00 AM Scheduled Provider: Location:[facility] Appointment Type:CV OV Appointment Date:05/15/2022 08:00:00 AM Scheduled Provider:LARY BHANDARI DO Location:[facility] Appointment Type:PC OV Future Scheduled Tests Laboratory* A1C Hemoglobin 05/15/22 * Vitamin D Level 05/15/22 * Complete Metabolic Panel 05/15/22 [facility] Evaluation + Plan note Future Appointments Appointment Date:05/08/2022 12:45:00 PM Scheduled Provider: Location:[facility] Appointment Type:CV MACHINE CLEANER Appointment Date:05/15/2022 08:00:00 AM Scheduled Provider:LARY BHANDARI DO Location:[facility] Appointment Type:PC OV Appointment Date:06/09/2022 11:30:00 AM Scheduled Provider: Location:[facility] Appointment Type:CV OV Appointment Date:06/17/2022 02:30:00 PM Scheduled Provider: Location:[facility] Appointment Type:CV MACHINE CLEANER Future Scheduled Tests Laboratory* A1C Hemoglobin 05/15/22 * Vitamin D Level 05/15/22 * Complete Metabolic Panel 05/15/22 * N-Terminal proBNP 08/01/22 [facility] evaluation + Plan note Future Appointments Appointment Date:05/29/2022 03:00:00 PM Scheduled Provider: Location:[facility] Appointment Type:CV OV Incision Check Appointment Date:06/09/2022 11:30:00 AM Scheduled Provider: Location:[facility] Appointment Type:CV OV Appointment Date:06/09/2022 01:30:00 PM Scheduled Provider:LARY BHANDARI DO Location:[facility] Appointment Type:PC OV Appointment Date:06/17/2022 02:30:00 PM Scheduled Provider: Location:[facility] Appointment Type:CV MACHINE CLEANER Appointment Date:09/01/2022 03:30:00 PM Scheduled Provider: Location:[facility] Appointment Type:CV Office Procedure ICD Appointment Date:12/01/2022 08:00:00 AM Scheduled Provider: Location:[facility] Appointment Type:CV Remote Procedure HM Diagnostic Tests Pending * Urine Culture 05/22/22 Future Scheduled Tests Laboratory* A1C Hemoglobin 05/15/22 * Vitamin D Level 05/15/22 * Complete Metabolic Panel 05/15/22 * N-Terminal proBNP 08/01/22 [place] Evaluation + Plan note Future Appointments Appointment Date:06/09/2022 11:30:00 AM Scheduled Provider: Location:[facility] Appointment Type:CV OV Appointment Date:06/09/2022 01:30:00 PM Scheduled Provider:LARY BHANDARI DO Location:[facility] Appointment Type:PC OV Appointment Date:09/01/2022 03:30:00 PM Scheduled Provider: Location:[facility] Appointment Type:CV Office Procedure ICD Appointment Date:12/01/2022 08:00:00 AM Scheduled Provider: Location:[facility] Appointment Type:CV Remote Procedure HM Future Scheduled Tests Laboratory* Basic Metabolic Panel 06/01/22 * N-Terminal proBNP 06/01/22 * N-Terminal proBNP 08/01/22 [facility] Evaluation + Plan note Future Appointments Appointment Date:09/01/2022 03:30:00 PM Scheduled Provider: Location:[facility] Appointment Type:CV Office Procedure ICD Appointment Date:09/08/2022 02:00:00 PM Scheduled Provider:LARY BHANDARI DO Location:[facility] Appointment Type:PC OV Appointment Date:12/01/2022 08:00:00 AM Scheduled Provider: Location:[facility] Appointment Type:CV Remote Procedure HM Future Scheduled Tests Laboratory* Lipid Profile 12/10/22 * N-Terminal proBNP 08/01/22 * N-Terminal proBNP 09/09/22 * N-Terminal proBNP 12/10/22 [facility] Evaluation + Plan note Future Appointments Appointment Date:07/23/2022 03:00:00 PM Scheduled Provider:LARY BHANDARI DO Location:[facility] Appointment Type:PC OV Appointment Date:09/01/2022 03:30:00 PM Scheduled Provider: Location:[facility] Appointment Type:CV Office Procedure ICD Appointment Date:09/08/2022 02:00:00 PM Scheduled Provider:LARY BHANDARI DO Location:[facility] Appointment Type:PC OV Appointment Date:12/01/2022 [...] N-Terminal proBNP 09/09/22 * N-Terminal proBNP 12/10/22 [facility] Evaluation + Plan note Future Appointments Appointment Date:07/23/2022 03:00:00 PM Scheduled Provider:LARY BHANDARI DO Location:[facility] Appointment Type:PC OV Appointment Date:09/01/2022 03:30:00 PM Scheduled Provider: Location:[facility] Appointment Type:CV Office Procedure ICD Appointment Date:09/08/2022 02:00:00 PM Scheduled Provider:LARY BHANDARI DO Location:[facility] Appointment Type:PC OV Appointment Date:12/01/2022 08:00:00 [...] N-Terminal proBNP 09/09/22 * N-Terminal proBNP 12/10/22 [facility] Evaluation + Plan note Future Appointments Appointment Date:09/01/2022 03:30:00 PM Scheduled Provider: Location:[facility] Appointment Type:CV Office Procedure ICD Appointment Date:09/08/2022 02:00:00 PM Scheduled Provider:LARY BHANDARI DO Location:[facility] Appointment Type:PC OV Appointment Date:12/01/2022 08:00:00 [...] N-Terminal proBNP 09/09/22 * N-Terminal proBNP 12/10/22 [place] Evaluation + Plan note Future Appointments Appointment Date:12/01/2022 08:00:00 AM Scheduled Provider: Location:[facility] Appointment Type:CV Remote Procedure Appointment Date:12/08/2022 02:45:00 PM Scheduled Provider:LARY BHANDARI DO Location:[facility] Appointment Type:PC OV Future Scheduled [...] 12/10/22 Radiology* CT Thorax w/o Contrast 09/08/22 [facility] Evaluation + Plan note Future Appointments Appointment Date:12/01/2022 08:00:00 AM Scheduled Provider: Location:[facility] Appointment Type:CV Remote Procedure Appointment Date:12/08/2022 02:45:00 PM Scheduled Provider:LARY BHANDARI DO Location:[facility] Appointment Type:PC OV Future Scheduled [...] N-Terminal proBNP 12/09/22 * N-Terminal proBNP 12/10/22 [facility] Evaluation + Plan note Future Appointments Appointment Date:12/01/2022 08:00:00 AM Scheduled Provider: Location:[facility] Appointment Type:CV Remote Procedure Appointment Date:12/08/2022 02:45:00 PM Scheduled Provider:LARY BHANDARI DO Location:[facility] Appointment Type:PC OV Future Scheduled [...] N-Terminal proBNP 01/28/23 * N-Terminal proBNP 12/10/22 [facility] Evaluation + Plan note Future Appointments Appointment Date:11/30/2022 03:30:00 PM Scheduled Provider:ADRIENNE BYERS DO Location:[facility] Appointment Type:PC OV Appointment Date:12/01/2022 08:00:00 AM Scheduled Provider: Location:[facility] Appointment Type:CV Remote Procedure HM Appointment Date:12/08/2022 02:45:00 PM Scheduled Provider:LARY BHANDARI DO Location:[facility] Appointment Type:PC OV Diagnostic Tests [...] N-Terminal proBNP 01/28/23 * N-Terminal proBNP 12/10/22 [facility] Evaluation + Plan note Future Appointments Appointment Date:12/08/2022 03:00:00 PM Scheduled Provider:LARY BHANDARI DO Location:[facility] Appointment Type:PC OV Appointment Date:03/12/2023 11:45:00 [...] N-Terminal proBNP 01/28/23 * N-Terminal proBNP 12/10/22 [facility] Evaluation + Plan note Future Appointments Appointment Date:03/12/2023 11:45:00 AM Scheduled Provider: Location:[facility] Appointment Type:CV Remote Procedure Appointment Date:03/23/2023 02:30:00 PM Scheduled Provider:LARY BHANDARI DO Location:[facility] Appointment Type:PC OV Future Scheduled [...] N-Terminal proBNP 12/09/22 * N-Terminal proBNP 01/28/23 [facility] Evaluation + Plan note Future Appointments Appointment Date:03/12/2023 11:45:00 AM Scheduled Provider: Location:[facility] Appointment Type:CV Remote Procedure Appointment Date:03/24/2023 02:30:00 PM Scheduled Provider:ADRIENNE BYERS DO Location:[facility] Appointment Type:PC OV Future Scheduled Tests Laboratory* [...] N-Terminal proBNP 12/09/22 * N-Terminal proBNP 01/28/23 [facility] Evaluation + Plan note Future Appointments Appointment Date:05/18/2023 10:00:00 AM Scheduled Provider: Location:[facility] Appointment Type:CV OV Appointment Date:06/29/2023 09:45:00 AM Scheduled Provider: Location:[facility] Appointment Type:CV Remote Procedure HM Appointment Date:07/29/2023 02:45:00 PM Scheduled Provider:ADRIENNE BYERS DO Location:[facility] Appointment Type:PC Wellness Annual Future Scheduled [...] N-Terminal proBNP 12/09/22 * N-Terminal proBNP 01/28/23 [facility] Evaluation + Plan note Future Appointments Appointment Date:06/29/2023 09:45:00 AM Scheduled Provider: Location:[facility] Appointment Type:CV Remote Procedure Appointment Date:07/29/2023 02:45:00 PM Scheduled Provider:ADRIENNE BYERS DO [facility] Type:PC Wellness Annual Future Scheduled Tests [...] 01/28/23 Radiology* CT Thorax w/o Contrast 11/24/23 [facility] Evaluation + Plan note Future [...] Metabolic Panel 11/11/22 * Basic Metabolic Panel 1/4/23 * Basic Metabolic Panel 06/11/23 * Urinalysis [...] 01/28/23 Radiology* CT Thorax w/o Contrast 11/24/23 [facility] Evaluation + Plan note Future [...] 01/28/23 Radiology* CT Thorax w/o Contrast 11/24/23 [facility] Evaluation + Plan note Future [...] 01/28/23 Radiology* CT Thorax w/o Contrast 11/24/23 [facility] Evaluation + Plan note Future [...] 01/28/23 Radiology* CT Thorax w/o Contrast 11/24/23 [facility] Evaluation + Plan note Future Appointments Appointment Date:10/28/2023 01:00:00 PM Scheduled Provider: Location:[facility] Appointment Type:OT Outpatient Evaluation Appointment Date:10/29/2023 11:30:00 AM Scheduled Provider:ADRIENNE BYERS DO Location:[facility] Appointment Type:PC OV TCM 30 Appointment Date:11/02/2023 10:45:00 AM Scheduled Provider: Location:[facility] Appointment Type:CV OV Appointment Date:11/10/2023 10:30:00 [...] 01/28/23 Radiology* CT Thorax w/o Contrast 11/24/23 [facility] Evaluation + Plan note Future Appointments Appointment Date:12/30/2023 01:30:00 PM Scheduled Provider: Location:[facility] Appointment Type:OT Treatment Appointment Date:01/03/2024 01:30:00 PM Scheduled Provider: Location:[facility] Appointment Type:OT Treatment Appointment Date:02/21/2024 02:30:00 PM Scheduled Provider:ADRIENNE BYERS DO [facility] Appointment Type:PC OV Appointment Date:03/03/2024 02:45:00 PM Scheduled Provider: Location:[facility] Appointment Type:CV Remote Procedure HM Future [...] 01/28/23 Radiology* CT Thorax w/o Contrast 11/24/23 [facility] Evaluation + Plan note Future Appointments Appointment Date:02/21/2024 02:30:00 PM Scheduled Provider:ADRIENNE BYERS DO [facility] Appointment Type:PC OV Appointment Date:03/03/2024 02:45:00 PM Scheduled Provider: Location:[facility] Appointment Type:CV Remote Procedure Future Scheduled [...] 01/28/23 Radiology* CT Thorax w/o Contrast 11/24/23 [facility] Evaluation + Plan note Future Appointments Appointment Date:06/06/2024 08:30:00 AM Scheduled Provider: Location:[facility] Appointment Type:CV OV Appointment Date:06/16/2024 10:00:00 AM Scheduled Provider: Location:[facility] Appointment Type:CV Remote Procedure Appointment Date:06/23/2024 01:30:00 PM Scheduled Provider:ADRIENNE BYERS DO Location:[facility] Appointment Type:PC OV Future Scheduled Tests Laboratory* Basic Metabolic Panel 06/11/23 * Urinalysis 04/29/23 * Lipid Profile 05/03/24 * Albumin/Creatinine Ratio, Random Urine 04/29/23 * Albumin/Creatinine Ratio, Random Urine 02/25/24 * N-Terminal proBNP 05/03/24 Radiology* CT Thorax w/o Contrast 11/24/23 [facility] Evaluation + Plan note Future Appointments Appointment Date:06/06/2024 08:30:00 AM Scheduled Provider: Location:[facility] Appointment Type:CV OV Appointment Date:06/16/2024 10:00:00 AM Scheduled Provider: Location:[facility] Appointment Type:CV Remote Procedure Appointment Date:06/23/2024 01:30:00 PM Scheduled Provider:ADRIENNE BYERS DO Location:[facility] Appointment Type:PC OV Appointment Date:12/07/2024 03:00:00 PM Scheduled Provider:ADRIENNE BYERS DO Location:[facility] Appointment Type:PC Wellness Medicare Future Scheduled Tests Laboratory* Basic Metabolic Panel 06/11/23 * Albumin/Creatinine Ratio, Random Urine 02/25/24 Radiology* CT Thorax w/o Contrast 11/24/23 [facility] Evaluation note* Diagnosis Tremor of left hand- Primary [facility] Diagnosis Parkinsonism, unspecified Parkinsonism type (HCC)- Primary Tremor of left hand [facility] 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 Parkinson disease (HCC) Paralysis agitans Nocturnal muscle cramp Cramp of limb [facility] Tremor of left hand [facility]* Diagnosis History of stroke- Primary Transient ischemic attack (TIA), and cerebral infarction without residual deficits Spasticity Abnormal involuntary movements Spastic hemiparesis (HCC) Spastic hemiplegia affecting unspecified side [facility]* 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 Parkinsonism, unspecified Parkinsonism type (HCC) [facility] noteNo assessment information availableWCleveland Clinic [facility] Work Phone: Evaluation note* Diagnosis Onset Date Resolution Status Cerebrovascular disease acut e CVA (cerebral vascular accident) acute AV node dysfunction acute Ischemic cardiomyopathy acut e Presence of biventricular im plantable cardioverter-defibrillator acute [facility] Work Phone: Evaluation note* Diagnosis Onset Date Resolution Status Cerebrovascular disease acut e CVA (cerebral vascular accident) acute AV node dysfunction acute Ischemic cardiomyopathy acut e Presence of biventricular im plantable cardioverter-defibrillator acute Anxiety acute CVA (cerebral vascular accident) acute Debility acute Depression acute Diabetes mellitus acute GERD (gastroesophageal reflux disease) acute Muscle spasm acute Overactive bladder acute Transient ischemic attack ac nikolai Vitamin D deficiency acute HLD (hyperlipidemia) chronic HTN (hypertension) chronic CVA (cerebral vascular accident) acute [facility] Work Phone: Evaluation note* Diagnosis Onset Date Resolution Status Cerebrovascular disease acut e AV node dysfunction acute Ischemic cardiomyopathy acut e Presence of biventricular im plantable cardioverter-defibrillator acute Anxiety acute Debility acute Depression acute Diabetes mellitus acute GERD (gastroesophageal reflux disease) acute Muscle spasm acute Overactive bladder acute Transient ischemic attack ac nikolai Vitamin D deficiency acute HLD (hyperlipidemia) chronic HTN (hypertension) chronic Ischemic cardiomyopathy acut e Transient ischemic attack ac nikolai PFO (patent foramen ovale) c hronic [facility] Work Phone: Evaluation note* Diagnosis Essential tremor- Primary Essential and other specified forms of tremor Tremor of left hand documented in this encounter [facility] note* Diagnosis Onset Date Resolution Status Cerebrovascular [...] acut e PFO (patent foramen ovale) c hronic [facility] Work Phone: Evaluation note* Diagnosis Onset Date Resolution Status Colitis acute Gastrointestinal bleeding, lower acute [facility] Work Phone: Evaluation note* Diagnosis Onset [...] vascular accident) resolved Gastrointestinal bleeding, lower resolved [facility] Work Phone: Evaluation note* Diagnosis History of stroke- Primary Transient ischemic attack (TIA), and cerebral infarction without residual deficits Spasticity Abnormal involuntary movements [facility]* Diagnosis Other constipation [facility] Diagnosis Other constipation- Primary Other constipation [facility]* Diagnosis Dizziness and giddiness [facility]* Diagnosis Other forms of dyspnea [facility]* Diagnosis Other forms of dyspnea- Primary [facility]* Diagnosis Dizziness and giddiness- Primary Dizziness and giddiness [facility]* Diagnosis Tardive dyskinesia- Primary Subacute dyskinesia due to drugs [facility]* Diagnosis Essential tremor- Primary Essential and other specified forms of tremor Dyskinesia, tardive Subacute dyskinesia due to drugs [facility]* Diagnosis Presence of cardiac pacemaker Cardiac pacemaker in situ [facility] Diagnosis Essential tremor Essential and other specified forms of tremor Dyskinesia, tardive Subacute dyskinesia due to drugs documented [facility]* Diagnosis Tardive dyskinesia- Primary Subacute dyskinesia due to drugs [facility]* Diagnosis Chronic systolic (congestive) heart failure (HCC) [facility]* Diagnosis Tardive dyskinesia- Primary Subacute dyskinesia due to drugs documented [facility] encounter [facility] Author Jaci Greco [facility] October 07, 2023 2:38pm Note Date/Time October 07, 2023 1:59pm [facility] Medical Records Department [address] [place] [address] H&P Exam - Hospitalist 10/07/23 1355 MR#: [id number] Acct: [id number] Name: MANSI CARO Rep #:[id number] : [...] and Plavix who now re-presents to the [facility] ED on 10/07/23 with history of [...] History (Updated 10/07/23 @ 14:[address] Jcai Greco MD) Anxiety and depression AV node dysfunction Cardiac resynchronization therapy defibrillator (MILL OPERATOR HEAD-D) in place Cerebral palsy Coronary artery disease [...] (Auto) 41.7 L, Lymph % (Auto) 47.6 H,[place] % (Auto) 9.0, Eos % (Auto) 0.9, [...] and Plavix who now re-presents to the [facility] ED on 10/07/23 with history of [...] DVT prophylaxis: Lovenox. #13. CODE status: Patient HCPOA is her who is present and living will is currently in place. Discussed CODE status at length including difference between FULL code, DNR-CCA and DNR-CC status. Following discussions about the differences in these status, requested Full Code status. Advanced Care Planning Face to Face Time: 16 minutes. Charges/Coding Visit Charges Inpatient E&M: 83016 Init Hosp L3 Procedures Hospitalists Procedures: 37723 Advncd Care Plan 30 Min 10/07/23 1438 <Electronically signed by Jaci Greco MD> Cosigner Signature (if applicable): CC: Dr. Jaci Greco MD; Dr. Adrienne Byers, DO~ Signed [facility] Work Phone: History and physical note Author Ben Paulinoaitkin hospitalesther [facility] February 21, 2024 9:35pm Note Date/Time February 21, 2024 9:35 pm [facility] Medical Records Department [address] [place] [address] H&P Exam - Hospitalist 02/21/242124 MR#: [id number] Acct: [id number] Name: MANSI CARO Rep #:[id number] : 1955 69 From: Ben Johnson DO PCP: Dr. Adrienne Byers, Status:ADM IN [place] [facility] [id number] HPI - General General Date of Admission: 02/21/24 Date of Service: 02/21/24 Chief Complaint: Abdominal pain, bright red blood in stool HPI Narrative MANSI CARO, is a 69 F who presents to the emergency room at [facility] for evaluation of right red rectal bleeding [...] neoplastic component. Patient will be admitted to [place] [address], she will be placed on IV antibiotics, shewill be seen by gastroenterology, she may need endoscopic procedures. Labs willbe monitored. [facility] Medical History Anxiety and depression AV node dysfunction Cardiac resynchronization therapy defibrillator (MILL OPERATOR HEAD-D) in place Cerebral palsy Congestive heart failure [...] (Auto) 88.4 H, Lymph % (Auto) 5.3L, [place] % (Auto) 5.5, Eos % (Auto) 0.0, [...] Clarity Clear, Urine pH 5.0, Ur Specific [place] 1.015, Urine Protein 15 H, Urine Glucose [...] Colitis-etiology unclear, patient will be admitted to [facility] 3, she was placed on IV [...] able to exclude underlying solid neoplastic component. [facility] hospitalist will need to arrange this. Total clinical time spent by myself addressing the patient's medical issues, reviewing all of her data, and collaborating with patient's care team: 75 minutes Charges/Coding Visit Charges Inpatient E&M: 52308 Init Hosp L3 02/21/244 <Electronically signed by Ben Johnson DO> Cosigner Signature (if applicable): CC: Dr. Ben Johnson, ; Dr. Adrienne Byers DO~ Signed [facility] Work Phone: Hospital course Narrative No data available for this section [facility] Discharge instructions No data available for this section [facility] Discharge instructions Additional Instructions Follow-up at your PCP appointment on Wednesday and return for any worsening of your symptoms. Stay well-hydrated, you can take either MiraLAX or Dulcolax for your constipation. [facility] Work Phone: Hospital Discharge instructions Additional Instructions You can take [id number] pain relievers or your oxycodone as needed for breakthrough pain. Follow-up with your primary care doctorWCleveland Clinic [facility] Work Phone: Hospital Discharge instructionsAdditional Instructions Follow-up your doctor in outpatient setting. Take antibiotics for your urinary tract infection as prescribed use other antibiotics as prescribed as well. Return with worsening symptoms or any concerns. 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, unspecified Parkinsonism type (HCC) Procedures NM BRAIN TREMOR SPECT/CT RP LOCLZJ YASMANI SPECT W/CT 1 AREA 1 DAY IMAGING Sherif Ramirez MD [address] [place] [address] Molecular & Functional Imaging [address] [place] [address] Referral ID Status Reason Start Date Expiration Date Visits Requested Visits Authorized [id number] Authorized Auto-Generat ed Referral 07/01/2023 07/30/2024 1 1 [facility] for visit Narrative* Diagnostic Procedure Only (Routine) - Closed Specialty Diagnoses / Procedures Referred By Oni angel Referred To Contact MOLECULAR & FUNCTIONAL IMAGING 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, unspecified Parkinsonism type Procedures NM BRAIN TREMOR SPECT/CT RP LOCLZJ YASMANI SPECT W/CT 1 AREA 1 DAY IMAGING Sherif Ramirez MD [address] [place] [address] Molecular & Functional Imaging [address] [place] [address] Referral ID Status Reason Start Date Expiration Date V isits Requested Visits Authorized [id number] Closed Auto-Generate d Referral 07/01/2023 07/30/2024 1 1 [facility] for visit Narrative* Diagnostic Procedure Only (Routine) - Closed Specialty Diagnoses / Procedures Referred By Oni angel Referred To Contact Radiology / RADIO CT SCAN Diagnoses Solitary pulmonary nodule CT CHEST W/O CONTRAST R91.1 pulmonary nodule ORDER IN SCANNED DOCS AUTH # [id number] VALID 07.12.24 TO 09.10.24 Procedures DIAGNOSTIC COMPUTED TOMOGRAPHY THORAX W/O CNTRST CT WO CH 400 Martha Pillai V, MD [address] [facility] [address] [place] [address] Scan [facility] [address] [place] [address] Referral ID Status Reason Start Date Expiration Date Visits Re quested Visits Authorized [id number] Closed 07/12/2024 09/10/2024 1 1 [facility] for visit Narrative* Imaging (Routine) - Closed Specialty Diagnoses / Procedures Referred By Oni angel Referred To Contact Cardiology Diagnoses Dizziness and giddiness Procedures Vascular US carotid artery duplex [place] [address] Phone: tel: fax: Referral ID Status Reason Start Date Expiration Date Visits Re quested Visits Authorized [id number] Closed 11/07/2024 11/07/2025 1 1 [facility] for visit Narrative* (Routine) - Pending Review Specialty Diagnoses / Procedures Referred By Oni angel Referred To Contact Diagnoses Other forms of dyspnea Procedures Complete PFT pre and post bronchodilator [address]ci [address] [place] [address] Phone: tel: fax: Referral ID Status Reason Start Date Expiration Date V isits Requested Visits Authorized [id number] Pending Review 10/13/2024 10/08/2025 1 1 [facility] for visit Narrative* MRI/CT (Routine) - Authorized Specialty Diagnoses / Procedures Referred By Contac t Referred To Contact Radiology / RADIO CT SCAN Diagnoses Other nonspecific abnormal finding of lung field CT Chest wo contrast DX: R91.8 Auth# [id number] Order scanned into chart on 01/05/2025 Procedures DIAGNOSTIC COMPUTED TOMOGRAPHY THORAX W/O CNTRST CT WO CH 400 Kalen Izaguirre MD [address] [facility] [address] [place] [address] Phone: tel: fax: RADIO CT SCAN [facility] [address] [place] [address] Phone: tel: fax: Referral ID Status Reason Start Date Expiration Date V isits Requested Visits Authorized [id number] Authorized 01/02/2025 03/03/2025 2 2 [facility] for visit Narrative* MRI/CT (Routine) - Closed Specialty Diagnoses / Procedures [facility] Referred To Contact MR IMAGING Diagnoses Essential tremor Dyskinesia, tardive Procedures MRI BRAIN WO IVCON MRI BRAIN BRAIN STEM W/O CONTRAST MATERIAL Leyla Tse MD [address] [address] Phone: tel: fax: [place] [address] Referral ID Status Reason Start Date Expiration Date V isits Requested Visits Authorized [id number] Closed Auto-Generate d Referral 03/23/2025 05/22/2025 1 1 [facility] Summary Purpose Family History No Family History [...] Will Yes September 28 8:21pm Power of Punching Machine Operator Yes September 28, 2023 8:21pm Name of Medical Power of Punching Machine Operator BEATRICE PENA September 28, 2023 8:21pm Advance Directive Response Recorded Date/ Time Name of Medical Power of Punching Machine Operator Song mace September 28, 2023 10:25pm Advance Directives Yes May 18 7:27pm Living Will Yes September 28 10:25pm Power of Punching Machine Operator Yes September 28, 2023 10:25pm Advance Directive Response Recorded Date/ Time Name of Medical Power of Punching Machine Operator Song mace September 28, 2023 10:25pm Name of Medical Power of Punching Machine Operator jose Naqvi October 04, 2023 1:28pm Name of Medical Power of Punching Machine Operator spouse October 07, 2023 1:12pm Advance Directives Yes May 18 7:27pm Living Will Yes October 07, 2 023 1:12pm Power of Punching Machine Operator Yes October 07, 2023 1:12pm Advance Directive Response Recorded Date/ Time Name of Medical Power of Punching Machine Operator Song mace September 28, 2023 10:25pm Name of Medical Power of Punching Machine Operator jose Naqvi October 04, 2023 1:28pm Name of Medical Power of Punching Machine Operator spouse October 07, 2023 3:14pm Advance Directives Yes May 18 7:27pm Living Will Yes October 07, 2 023 3:14pm Power of Punching Machine Operator Yes October 07, 2023 3:14pm Advance Directive Response Recorded Date/ Time Name of Medical Power of Punching Machine Operator Song mace November 7th, 2023 10:25pm Name of Medical Power of Punching Machine Operator jose Naqvi October 04, 2023 1:28pm Name of Medical Power of Punching Machine Operator spouse October 07, 2023 3:14pm Name of Medical Power of Punching Machine Operator Song Ramírez December 08, 2023 3:46pm Advance Directives Yes May 18 7:27pm Living Will Yes December 08 3:46pm Power of Punching Machine Operator Yes December 08, 2023 3:46pm Advance Directive Response Recorded Date/ Time Name of Medical Power of Punching Machine Operator Song Ramírez December 08, 2023 4:46pm Advance Directives Yes May 18 8:27pm Living Will No February 19, 2024 4:09pm Power of Punching Machine Operator No February 18 4:09pm Advance Directive Response Recorded Date/ Time Name of Medical Power of Punching Machine Operator Song Ramírez December 08, 2023 4:46pm Advance Directives Yes May 18 8:27pm Living Will No February 21, 2024 3:03pm Power of Punching Machine Operator No February 20 3:03pm Advance Directive Response Recorded Date/ Time Name of Medical Power of Punching Machine Operator Song Ramírez December 08, 2023 4:46pm Name of Medical Power of Punching Machine Operator Song lAtmannatalia mace February 21, 2024 10:15pm Advance Directives Yes May 18 8:27pm Living Will Yes February 21, 2024 10:15pm Power of Punching Machine Operator Yes February 20 10:15pm Advance Directive Response Recorded Date/ Time Name of Medical Power of Punching Machine Operator Song Bronsonkatelynn December 08, 2023 4:46pm Name of Medical Power of Punching Machine Operator Song Ortizjeffery mace February 21, 2024 10:15pm Name of Medical Power of Punching Machine Operator eris Cuello March 08, 2024 4:39pm Advance Directives Yes May 18 8:27pm Living Will Yes March 08, 2024 4:39pm Power of Punching Machine Operator Yes March 08 4:39pm Advance Directive Response Recorded Date/ Time Living Will Yes July 03 7:58pm Do you have a Healthcare Power of Punching Machine Operator? Yes July 03, 2024 7:58pm Advance Directives Yes October 2:46pm Living Will Yes September 09 2:39pm Do you have a Healthcare Power of Punching Machine Operator? Yes September 09, 2024 2:39pm Living Will No November 18 3:39pm Do you have a Healthcare Power of Punching Machine Operator? No November 18, 2024 3:39pm Living Will No March 10, 2025 11:55am Do you have a Healthcare Power of Punching Machine Operator? No March 10, 2025 11:55am Advance Directive Response Recorded Date/ Time Living Will Yes July 03 7:58pm Do you have a Healthcare Power of Punching Machine Operator? Yes July 03, 2024 7:58pm Advance Directives Yes October 2:46pm Living Will No March 10, 2025 11:55am Do you have a Healthcare Power of Punching Machine Operator? No March 10, 2025 11:55am Advance Directive Response Recorded Date/ Time Living Will Yes July 03 7:58pm Do you have a Healthcare Power of Punching Machine Operator? Yes July 03, 2024 7:58pm Living Will No March 10, 2025 11:55am Do you have a Healthcare Power of Punching Machine Operator? No March 10, 2025 11:55am Do you have a Healthcare Power of Punching Machine Operator? Yes April 19, 2025 3:35am Advance Directives Yes October 2:46pm Advance Directive Response Recorded Date/ Time Living Will Yes July 03 7:58pm Do you have a Healthcare Power of Punching Machine Operator? Yes July 03, 2024 7:58pm Living Will No March 10, 2025 11:55am Do you have a Healthcare Power of Punching Machine Operator? No March 10, 2025 11:55am Do you have a Healthcare Power of Punching Machine Operator? Yes April 19, 2025 1:19pm Advance Directives Yes October 2:46pm Advance Directive Response Recorded Date/ Time Living Will Yes July 03 7:58pm Do you have a Healthcare Pow er of Punching Machine Operator? Yes July 03, 2024 7:58pm Do you have a Healthcare Pow er of Punching Machine Operator? No Fara 2nd, 2025 4:09pm Do you have a Healthcare Pow er of Punching Machine Operator? Yes April 24, 2025 3:39pm Name of Medical Power of Punching Machine Operator Song mace, April 24, 2025 3:39pm Living Will No March 10, 2025 11:55am Do you have a Healthcare Pow er of Punching Machine Operator? No March 10, 2025 11:55am Do you have a Healthcare Pow er of Punching Machine Operator? Yes April 19, 2025 1:19pm Advance Directives Yes October 2:46pm Advance Directive Response Recorded Date/ Time Living Will Yes July 03 7:58pm Do you have a Healthcare Pow er of Punching Machine Operator? Yes July 03, 2024 7:58pm Do you have a Healthcare Pow er of Punching Machine Operator? No April 23, 2025 4:09pm Do you have a Healthcare Pow er of Punching Machine Operator? Yes April 24, 2025 3:39pm Name of Medical Power of Punching Machine Operator Song mace, April 24, 2025 3:39pm Do you have a Healthcare Pow er of Punching Machine Operator? No May 22, 2025 4:39pm Living Will No March 10, 2025 11:55am Do you have a Healthcare Pow er of Punching Machine Operator? No March 10, 2025 11:55am Do you have a Healthcare Pow er of Punching Machine Operator? Yes April 19, 2025 1:19pm Advance Directives Yes October 2:46pm Advance Directive Response Recorded Date/ Time Do you have a Healthcare Pow er of Punching Machine Operator? No April 23, 2025 4:09pm Do you have a Healthcare Pow er of Punching Machine Operator? Yes April 24, 2025 3:39pm Name of Medical Power of Punching Machine Operator Song mace, April 24, 2025 3:39pm Do you have a Healthcare Pow er of Punching Machine Operator? No May 22, 2025 4:39pm Living Will No March 10, 2025 11:55am Do you have a Healthcare Pow er of Punching Machine Operator? No March 10, 2025 11:55am Do you have a Healthcare Pow er of Punching Machine Operator? Yes April 19, 2025 1:19pm Advance Directives Yes October 2:46pm Advance Directive Response Recorded Date/ Time Do you have a Healthcare Pow er of Punching Machine Operator? No April 23, 2025 4:09pm Do you have a Healthcare Pow er of Punching Machine Operator? Yes April 24, 2025 3:39pm Name of Medical Power of Punching Machine Operator Song mace, April 24, 2025 3:39pm Do you have a Healthcare Pow er of Punching Machine Operator? No May 22, 2025 4:39pm Living Will No March 10, 2025 11:55am Do you have a Healthcare Pow er of Punching Machine Operator? No March 10, 2025 11:55am Do you have a Healthcare Pow er of Punching Machine Operator? Yes April 19, 2025 1:19pm Do you have a Healthcare Pow er of Punching Machine Operator? No June 02, 2025 10:35am Advance Directives Yes October 2:46pm Advance Directive Response Recorded Date/ Time Do you have a Healthcare Pow er of Punching Machine Operator? No April 23, 2025 4:09pm Do you have a Healthcare Pow er of Punching Machine Operator? Yes April 24, 2025 3:39pm Name of Medical Power of Punching Machine Operator Song mace, April 24, 2025 3:39pm Do you have a Healthcare Pow er of Punching Machine Operator? No May 22, 2025 4:39pm Living Will No March 10, 2025 11:55am Do you have a Healthcare Pow er of Punching Machine Operator? No March 10, 2025 11:55am Do you have a Healthcare Pow er of Punching Machine Operator? Yes April 19, 2025 1:19pm Do you have a Healthcare Pow er of Punching Machine Operator? Yes June 02, 2025 2:27pm Advance Directives Yes October 2:46pm Reason for Referral Specialty Diagnoses / Procedures Referred By Oni angel Referred To Contact Diagnoses Tremor of left hand Essential tremor Procedures PROVIDER ORDERED FOLLOW UP OFFICE/OUTPATIENT [facility] 60-74 MINUTES Sherif Ramirez MD [address] [place] [address] Referral ID Status Reason Start Date Expiration Date Visits Requested Visits Authorized [id number] Pending Review PCP Requested Referral 3 01/18/2024 1 1 Specialty Diagnoses / Procedures Referred By Contac t Referred To Contact [facility] Diagnoses Tremor of left hand Essential tremor Procedures CONSULT TO AIRLINE LOUNGE RECEPTIONIST OCCUPATIONAL THERAPY EVAL HIGH COMPLEX 60 MINS Sherif Ramirez MD [address] [place] [address] [facility] [place] [address] [place] [address] Referral ID Status Reason Start Date Expiration Date Visits Requested Visits Authorized [id number] Pending Review Auto-Generat ed Referral 3 10/19/2024 1 1 Specialty Diagnoses / Procedures Referred By Contac t Referred To Contact Diagnoses Tremor of left hand Procedures PROVIDER ORDERED FOLLOW UP OFFICE/OUTPATIENT [facility] 60-74 MINUTES Sherif Ramirez MD [address] [place] [address] Referral ID Status Reason Start Date Expiration Date Visits Requested Visits Authorized [id number] Authorized PCP Requested Referral 06/23/2022 06/23/2023 1 1 Specialty Diagnoses / Procedures Referred By Contac t Referred To Contact Neurology Diagnoses Tremor of left hand Procedures CONSULT TO NEUROLOGY OFFICE/OUTPATIENT [facility] 60-74 MINUTES Ghazala Mccord MD [address] [place] [address] Referral ID Status Reason Start Date Expiration Date Visits Requested Visits Authorized [id number] Authorized PCP Requested Referral 06/04/2022 06/04/2023 1 [...] Complaint Admit Date 3 M FU/ S/P 12 ER November 28, 2024 1 :48pm Ongoing [...] Visit Admit Date Ischemic cardiomyopathy January 18, 025 1:19pm Presence of biventricular im plantable [...] Visit Admit Date Ischemic cardiomyopathy January 18 025 1:19pm Presence [...] Abdominal pain May 30, 2025 1:59p m Chief Complaint Admit Date PELVIC PAIN (SEE [...] Abdominal pain May 30, 2025 1:59p m PNEUMONIA, HYPOXIA June 02, 2025 1:36 pm Reason for Visit Admit Date Abdominal pain [...] Abdominal pain May 30, 2025 1:59p m Irritable bowel syndrome May 30, 2025 1:59pm Ischemic colitis May 30, 2025 1:59p m Chief Complaint Admit Date PELVIC PAIN (SEE [...] Abdominal pain May 30, 2025 1:59p m PNEUMONIA, HYPOXIA June 02, 2025 1:36 pm PNEUMONIA, HYPOXIA June 02, 2025 6:01 pm PNEUMONIA, HYPOXIA June 03, 2025 4:10 pm PNEUMONIA, HYPOXIA June 04, 2025 6:20 pm PNEUMONIA, HYPOXIA June 05, 2025 3:09 pm PNEUMONIA, HYPOXIA June 06, 2025 12:1 9pm PNEUMONIA, HYPOXIA June 07, 2025 1:00 pm PNEUMONIA, HYPOXIA June 07, 2025 3:33 pm PNEUMONIA, HYPOXIA June 08, 2025 4:24 pm PNEUMONIA, HYPOXIA June 09, 2025 1:09 pm PNEUMONIA, HYPOXIA June 10, 2025 3:44 pm PNEUMONIA, HYPOXIA June 11, 2025 12:0 6pm Reason for Visit Admit Date Abdominal pain [...] Abdominal pain May 30, 2025 1:59p m Irritable bowel syndrome May 30, 2025 1:59pm Ischemic colitis May 30, 2025 1:59p m Duodenal stenosis June 02, 2025 1:36 pm Dyspnea June 02, 2025 1:36 pm Pneumonia June 02, 2025 1:36 pm Additional Source Comments INFORMATION SOURCE (unrecogn ized section and content) DATE CREATED AUTHOR 01/17/2020 [facility] DATE CREATED AUTHOR AUTHOR'S ORGANIZ ATION 04/10/2020 [facility] DATE CREATED AUTHOR AUTHOR'S ORGANIZ ATION 05/21/2024 [facility] ([place] DATE CREATED AUTHOR AUTHOR'S ORGANIZ ATION 01/25/2025 [facility] DATE CREATED AUTHOR AUTHOR'S ORGANIZ ATION 03/03/2025 [facility] DATE CREATED AUTHOR AUTHOR'S ORGANIZ ATION 04/04/2025 [facility] DATE CREATED AUTHOR AUTHOR'S ORGANIZ ATION 06/17/2025 [facility] DATE CREATED AUTHOR AUTHOR'S ORGANIZ ATION 06/30/2025 [facility] DATE CREATED AUTHOR AUTHOR'S ORGANIZ ATION 07/01/2025 [facility] Care Team (unrecognized sect ion and content) Team Status: Active Member Role Status Dates Dr. Marci Nuñez , DO Primary Care Provider Ac tive Team Status: Inactive Member Role Status Dates Dr. Marci Nuñez DO Primary Care Provider Ac tive Start: November 28, 2024 End: November 28, 2024 Dr. Marci Nuñez , DO Referring Provider Activ e Start: November 28, 2024 End: November 28, 2024 Dr. Adrienne Christine MD Attending Provider Active Start: November 28, 2024 End: November 28, 2024 Team Status: Inactive Member Role Status Dates Dr. Marci Nuñez DO Primary Care Provider Ac tive Start: December 12, 2024 End: December 12, 2024 Dr. Marci Nuñez DO Referring Provider Activ e Start: December [...] End: December 19, 2024 Dr. Marci Nuñez DO Referring Provider Activ e Start: December 19, 2024 End: December 19, 2024 AMRIK Craig Attending Provider Active Star t: December 19, 2024 End: December 19, 2024 Team Status: Inactive Member Role Status Dates Dr. Marci Nuñez DO Primary Care Provider Ac tive Start: December 22, 2024 End: December 22, 2024 Dr. Marci Nuñez DO Attending Provider Activ e Start: December 22, 2024 End: December 22, 2024 Dr. Marci Nuñez DO Referring Provider Activ e Start: December [...] 2025 End: February 13, 2025 Mayte Burch MACHINE CLEANER, MACHINE CLEANER-C Attending Provider Active Start: February 13, 2025 [...] March 10, 2025 End: March 10, 2025 Weave Defect Charting Clerk Relationship Specialty Start Date End Date Jesus Manuel Martinez DO [address] [place] [address] PCP - General 02/21/15 Weave Defect Charting Clerk Relationship Specialty Start Date End Date Jesus Manuel Martinez DO [address] [place] [address] PCP - General 02/21/15 Weave Defect Charting Clerk Relationship Specialty Start Date End Date Jesus Manuel Martinez DO [address] [place] [address] PCP - General 02/21/15 Weave Defect Charting Clerk Relationship Specialty Start Date End Date Jesus Manuel Martinez DO [address] [place] [address] PCP - General 02/21/15 Weave Defect Charting Clerk Relationship Specialty Start Date End Date Jesus Manuel Martinez DO [address] [place] [address] PCP - General 02/21/15 Weave Defect Charting Clerk Relationship Specialty Start Date End Date Jesus Manuel Martinez DO [address] [place] [address] PCP - General 02/21/15 Kailyn Donald, E COMMERCE RETAILER.MONITOR WORKER [address] [place] [address] Specialty Cooler Room Worker Neurology 09/09/22 Weave Defect Charting Clerk Relationship Specialty Start Date End Date Jesus Manuel Martinez, DO [address] [place] [address] PCP - General 02/21/15 Kailyn Donald, E COMMERCE RETAILER.MONITOR WORKER [address] [place] [address] Specialty Cooler Room Worker Neurology 09/09/22 Weave Defect Charting Clerk Relationship Specialty Start Date End Date Fortino Jesus Manuel Bairon, DO [address] [place] [address] PCP - General 02/21/15 Kailyn Donald, E COMMERCE RETAILER.MONITOR WORKER [address] [place] [address] Specialty Cooler Room Worker Neurology 09/09/22 Gissell Hunt, E COMMERCE RETAILER.MONITOR WORKER [address] [place] [address] Specialty Cooler Room Worker Neurology 12/07/22 Weave Defect Charting Clerk Relationship Specialty Start Date End Date Jesus Manuel Martinez Bairon, DO [address] [place] [address] PCP - General 02/21/15 Kailyn Donald, E COMMERCE RETAILER.MONITOR WORKER [address] [place] [address] Specialty Cooler Room Worker Neurology 09/09/22 Gissell Hunt E COMMERCE RETAILER.MONITOR WORKER [address] [place] [address] Specialty Cooler Room Worker Neurology 12/07/22 Weave Defect Charting Clerk Relationship Specialty Start Date End Date Jesus Manuel Martinez, DO [address] [place] [address] PCP - General 02/21/15 Kailyn Donald, E COMMERCE RETAILER.MONITOR WORKER [address] [place] [address] Specialty Cooler Room Worker Neurology 09/09/22 Gissell Hunt E COMMERCE RETAILER.MONITOR WORKER [address] [place] [address] Specialty Cooler Room Worker Neurology 12/07/22 Weave Defect Charting Clerk Relationship Specialty Start Date End Date Jesus Manuel Martinez DO [address] [place] [address] PCP - General 02/21/15 Kailyn Donald, E COMMERCE RETAILER.MONITOR WORKER [address] [place] [address] Specialty Cooler Room Worker Neurology 09/09/22 Gissell Hunt, E COMMERCE RETAILER.MONITOR WORKER [address] [place] [address] Specialty Cooler Room Worker Neurology 12/07/22 Weave Defect Charting Clerk Relationship Specialty Start Date End Date Jesus Manuel Martinez DO [address] [place] [address] PCP - General 02/21/15 Kailyn Donald, E COMMERCE RETAILER.MONITOR WORKER [address] [place] [address] Specialty Cooler Room Worker Neurology 09/09/22 Gissell Hunt, E COMMERCE RETAILER.MONITOR WORKER [address] [place] [address] Specialty Cooler Room Worker Neurology 12/07/22 Weave Defect Charting Clerk Relationship Specialty Start Date End Date Jesus Manuel Martinez DO [address] [place] [address] PCP - General 02/21/15 Kailyn Donald, E COMMERCE RETAILER.MONITOR WORKER [address] [place], [place] [id number] Specialty Cooler Room Worker Neurology 09/09/22 Gissell Hunt, E COMMERCE RETAILER.MONITOR WORKER [address] [place], [place] [id number] Specialty Cooler Room Worker Neurology 12/07/22 Weave Defect Charting Clerk Relationship Specialty Start Date End Date Jesus Manuel Martinez, DO [address] [place] [address] PCP - General 02/21/15 Kailyn Donald, E COMMERCE RETAILER.MONITOR WORKER [address] [place], [place] [id number] Specialty Cooler Room Worker Neurology 09/09/22 Gissell Hunt, E COMMERCE RETAILER.MONITOR WORKER [address] [place], [place] [id number] Specialty Cooler Room Worker Neurology 12/07/22 Team Status: Active Member Role Status Dates Dr. Cathy Cherry , DO Family Provider Active Dr. Adrienne Byers , DO Primary Care Provider Active Team Status: Active Member Role Status Dates Dr. Uday Orosco , DO Emergency Provider Active Dr. Adrienne Byers , DO Primary Care Provider Active Dr. Tony Corona , DO Admit Provider, Attending Pr ovider Active Team Status: Active Member Role Status [...] Dr. Tony Mayer MD Other Provider Active Weave Defect Charting Clerk Relationship Specialty Start Date End Date Jesus Manuel Martinez, [address] [place] [address] PCP - General 02/21/15 Kailyn Donald, E COMMERCE RETAILER.MONITOR WORKER [address] [place], [place] [id number] Specialty Cooler Room Worker Neurology 09/09/22 Gissell Hunt, E COMMERCE RETAILER.MONITOR WORKER [address] [place], [place] [id number] Specialty Cooler Room Worker Neurology 12/07/22 Weave Defect Charting Clerk Relationship Specialty Start Date End Date Jesus Manuel Martinez, DO [address] [place] [address] PCP - General 02/21/15 Kailyn Donald, E COMMERCE RETAILER.MONITOR WORKER [address] [place], [place] [id number] Specialty Cooler Room Worker Neurology 09/09/22 Gissell Hunt, E COMMERCE RETAILER.MONITOR WORKER [address] [place] [address] Specialty Cooler Room Worker Neurology 12/07/22 Team Status: Active Member Role [...] Levin , DO Attending Provider, Emergency P rogilmar Active Team Status: Inactive Member Role Status [...] Role Status Dates Dr. Adrienne Byers , Primary Care Provider Active Dr. Alonso Marte MD Admit Provider, At tending Provider, Referring Provider Active Weave Defect Charting Clerk Relationship Specialty Start Date End Date Jesus Manuel Martinez, DO [address] [place] [address] PCP - General 02/21/15 Kailyn Donald, E COMMERCE RETAILER.MONITOR WORKER [address] [place] [address] Specialty Cooler Room Worker Neurology 09/09/22 Gissell Hunt, E COMMERCE RETAILER.MONITOR WORKER [address] [place] [address] Specialty Cooler Room Worker Neurology 12/07/22 Sherif Ramirez MD [address] [place] [address] Specialty Cooler Room Worker Neurology 11/10/23 Weave Defect Charting Clerk Relationship Specialty Start Date End Date Mily Rodas APRN - [facility] [address] [place] [address] PCP - General Nurse Practitioner 06/16/24 Weave Defect Charting Clerk Relationship Specialty Start Date End Date Mily Rodas APRN - [facility] [address] [place] [address] PCP - General Nurse Practitioner 06/16/24 Weave Defect Charting Clerk Relationship Specialty Start Date End Date Mily Rodas APRN - [facility] [address] [place] [address] PCP - General Nurse Practitioner 06/16/24 Weave Defect Charting Clerk Relationship Specialty Start [place] [address] [place] [address] PCP - General 02/21/15 Kailyn Donald, E COMMERCE RETAILER.MONITOR WORKER [address] [place] [address] Specialty Cooler Room Worker Neurology 09/09/22 Gissell Hunt, E COMMERCE RETAILER.MONITOR WORKER [address] [place] [address] Specialty Cooler Room Worker Neurology 12/07/22 Sherif Ramirez MD [address] [place] [address] Specialty Cooler Room Worker Neurology 11/10/23 Weave Defect Charting Clerk Relationship Specialty Start Date End Date Joaquin, Marci [address] [place] [address] PCP - General Family Medicine 07/20/24 Weave Defect Charting Clerk Relationship Specialty Start Date End Date Jesus Manuel Martinez DO [address] [place] [id number] PCP - General 02/21/15 Kailyn Donald, E COMMERCE RETAILER.MONITOR WORKER [address] [place] [address] Specialty Cooler Room Worker Neurology 09/09/22 Gissell Hunt APRN.MONITOR WORKER [address] [place] [address] Specialty Cooler Room Worker Neurology 12/07/22 Sherif Ramirez MD [address] [place] [address] Specialty Cooler Room Worker Neurology 11/10/23 Weave Defect Charting Clerk Relationship Specialty Start Date End Date Mily Rodas APRN - MONITOR WORKER [address] [place] [address] PCP - General Nurse Practitioner 06/16/24 07/19/24 Marci Nuñez [address] [place] [address] PCP - General Family Medicine 07/20/24 Weave Defect Charting Clerk Relationship Specialty Start Date End Date Marci Nuñez [address] [place] [address] PCP - General Family Medicine 07/20/24 Weave Defect Charting Clerk Relationship Specialty Start Date End Date Marci Nuñez [address] [place] [phone] PCP - General Family Medicine 07/20/24 Weave Defect Charting Clerk Relationship Specialty Start Date End Date Jesus Manuel Martinez DO [address] [place] [address] PCP - General 02/21/15 Kailyn Donald, E COMMERCE RETAILER.MONITOR WORKER [address] [place], [place] [id number] Specialty Cooler Room Worker Neurology 09/09/22 Gissell Hunt, DAYNE.MONITOR WORKER [address] [place], [place] [id number] Specialty Cooler Room Worker Neurology 12/07/22 Sherif Ramirez MD [address] [place], [place] [id number] Specialty Cooler Room Worker Neurology 11/10/23 Weave Defect Charting Clerk Relationship Specialty Start Date End Date Marci Nuñez [place] [place] [phone] PCP - General Family Medicine 07/20/24 Weave Defect Charting Clerk Relationship Specialty Start Date End Date Marci Nuñez [address] [place] [phone] PCP - General Family Medicine 07/20/24 Weave Defect Charting Clerk Relationship Specialty Start Date End Date Jesus Manuel Martinez DO [address] [place] [address] PCP - General 02/21/15 Kailyn Donald, E COMMERCE RETAILER.MONITOR WORKER [address] [place], [place] [id number] Specialty Cooler Room Worker Neurology 09/09/22 Gissell Hunt, E COMMERCE RETAILER.MONITOR WORKER [address] [place], [place] [id number] Specialty Cooler Room Worker Neurology 12/07/22 Sherif Ramirez MD [address] [place], [place] [id number] [phone] Specialty Cooler Room Worker Neurology 11/10/23 Weave Defect Charting Clerk Relationship Specialty Start Date End Date Jesus Manuel Martinez DO [address] [place] [address] PCP - General 02/21/15 Kailyn Donald, E COMMERCE RETAILER.MONITOR WORKER [address] [place] [address] Specialty Cooler Room Worker Neurology 09/09/22 Gissell Hunt, E COMMERCE RETAILER.MONITOR WORKER [address] [place] [address] Specialty Cooler Room Worker Neurology 12/07/22 Sherif Ramirez MD [address] [place], [place] [id number] [phone] Specialty Cooler Room Worker Neurology 11/10/23 Weave Defect Charting Clerk Relationship Specialty Start Date End Date Marci Nuñez [place] [phone] PCP - General Family Medicine 07/20/24 Weave Defect Charting Clerk Relationship Specialty Start Date End Date Jesus Manuel Martinez DO [address] [place] [address] PCP - General 02/21/15 Kailyn Donald, E COMMERCE RETAILER.MONITOR WORKER [address] [place] [address] Specialty Cooler Room Worker Neurology 09/09/22 Gissell Hunt, E COMMERCE RETAILER.MONITOR WORKER [address] [place] [address] Specialty Cooler Room Worker Neurology 12/07/22 Sherif Ramirez MD [address] [place] [address] Specialty Cooler Room Worker Neurology 11/10/23 Weave Defect Charting Clerk Relationship Specialty Start Date End Date Jesus Manuel Martinez DO [address] [place] [address] PCP - General 02/21/15 Kailyn Donald, E COMMERCE RETAILER.MONITOR WORKER [address] [place] [address] Specialty Cooler Room Worker Neurology 09/09/22 Gissell Hunt, E COMMERCE RETAILER.MONITOR WORKER [address] [place] [address] Specialty Cooler Room Worker Neurology 12/07/22 Sherif Ramirez MD [address] [place] [address] Specialty Cooler Room Worker Neurology 11/10/23 Weave Defect Charting Clerk Relationship Specialty Start Date End Date Jesus Manuel Martinez DO [address] [place] [address] PCP - General 02/21/15 Kailyn Donald, E COMMERCE RETAILER.MONITOR WORKER [address] [place] [address] Specialty Cooler Room Worker Neurology 09/09/22 Gissell Hunt E COMMERCE RETAILER.MONITOR WORKER [address] [place] [address] Specialty Cooler Room Worker Neurology 12/07/22 Sheirf Ramirez MD [address] [place] [address] Specialty Cooler Room Worker Neurology 11/10/23 Weave Defect Charting Clerk Relationship Specialty Start Date End Date Jesus Manuel Martinez DO [address] [place] [address] PCP - General 02/21/15 Kailyn Donald, E COMMERCE RETAILER.MONITOR WORKER [address] [place] [address] Specialty Cooler Room Worker Neurology 09/09/22 Gissell Hunt, E COMMERCE RETAILER.MONITOR WORKER [address] [place] [address] Specialty Cooler Room Worker Neurology 12/07/22 Sherif Ramirez MD [address] [place] [address] Specialty Cooler Room Worker Neurology 11/10/23 Weave Defect Charting Clerk Relationship Specialty Start Date End Date Jesus Manuel Martinez DO [address] [place] [address] PCP - General 02/21/15 Kailyn Donald, E COMMERCE RETAILER.MONITOR WORKER [address] [place] [address] Specialty Cooler Room Worker Neurology 09/09/22 Gissell Hunt, DAYNE.MONITOR WORKER [address] [place] [address] Specialty Cooler Room Worker Neurology 12/07/22 Sherif Ramirez MD [address] [place] [address] Specialty Cooler Room Worker Neurology 11/10/23 Team Status: Active Member Role Status Dates Dr. Marci Nuñez , DO Primary Care Provider Ac tive Start: November 14, 2024 Dr. Marci Nuñez , DO Attending Provider Activ e Start: November 14, 2024 Dr. Marci Nuñez , DO Referring Provider Activ e Start: November 14, 2024 Team Status: Inactive Member Role Status Dates Dr. Marci Nuñez DO Primary Care Provider Ac tive Start: November 18, 2024 End: November 18, 2024 Dr. Jose Jaime , Attending Provider Active Start: November 18, 2024 End: November 18, 2024 Dr. Jose Jaime , DO Emergency Provider Active Start: November 18, 2024 End: November 18, 2024 Team Status: Inactive Member Role Status Dates Dr. Marci Nuñez DO Primary Care Provider Ac tive Start: November 23, 2024 End: November 23, 2024 Dr. Marci Nuñez , DO Referring Provider Activ e Start: November [...] March 10, 2025 End: March 10, 2025 Weave Defect Charting Clerk Relationship Specialty Start Date End Date Jesus Manuel Martinez DO [address] [place] [address] PCP - General 02/21/15 Kailyn Donald, E COMMERCE RETAILER.MONITOR WORKER [address] [place] [address] Specialty Cooler Room Worker Neurology 09/09/22 Gissell Hunt, E COMMERCE RETAILER.MONITOR WORKER [address] [place] [address] Specialty Cooler Room Worker Neurology 12/07/22 Sherif Ramirez MD [address] [place] [address] Specialty Cooler Room Worker Neurology 11/10/23 Team Status: Inactive Member Role [...] 2025 End: February 13, 2025 Mayte Burch MACHINE CLEANER, MACHINE CLEANER-C Attending Provider Active Start: February 13, 2025 [...] April 20, 2025 Dr. Maximo Orosco DO Attending Provider Active Start: April 20, 2025 Dr. Maximo Orosco DO Other Provider Active Start: April 20, [...] 2025 End: February 13, 2025 Mayte Burch MACHINE CLEANER, MACHINE CLEANER-C Attending Provider Active Start: February 13, 2025 [...] April 20, 2025 Dr. Maximo Orosco , Attending Provider Active Start: April 20, 2025 Dr. Maximo Orosco , Other Provider Active Start: April 20, 2025 [...] 2025 End: February 13, 2025 Mayte Burch MACHINE CLEANER, MACHINE CLEANER-C Attending Provider Active Start: February 13, 2025 [...] April 20, 2025 Dr. Maximo Orosco DO Attending Provider Active Start: April 20, 2025 Dr. Maximo Orosco DO Other Provider Active Start: April 20, [...] May 30, 2025 End: May 30, 2025 Weave Defect Charting Clerk Relationship Specialty Start Date End Date Marci Nuñez [address] [place] [phone] PCP - General Family Medicine 07/20/24 Team Status: Active Member Role/Relationship Status Dates Dr. Marci Nuñez DO Primary Care Provider Ac tive Start: June 02, 2025 Dr. Bossman Sanders , Emergency Provider Active S tart: June 02, 2025 Dr. Ben Johnson , DO Admit Provider Active S tart: June 02, 2025 Dr. Ben Johnson , Attending Provider Active Start: June 02, 2025 Team Status: Inactive Member Role/Relationship Status Dates Dr. Marci Nuñez DO Primary Care Provider Ac tive Start: June 02, 2025 End: June 11, 2025 Dr. Bossman Sanders , DO Emergency Provider Active S tart: June 02, 2025 End: June 11, 2025 Dr. Ben Johnson , DO Admit Provider Active S tart: June 02, 2025 End: June 11, 2025 Dr. Ben Johnson , DO Other Provider Active S tart: June 02, 2025 End: June 11, 2025 Dr. Ganesh Kiran MD Attending Provider Active Start: June 02, 2025 End: June 11, 2025 Dr. Shan Lockett , DO Other Provider Active St art: June 02, 2025 End: June 11, 2025 Team Status: Active Member Role/Relationship Status Dates Dr. Marci Nuñez , DO Primary Care Provider Ac tive Start: June 02, 2025 Dr. Bossman Sanders , DO Emergency Provider Active S tart: June 02, 2025 Dr. Ben Johnson , DO Admit Provider Active S tart: June 02, 2025 Dr. Ben Johnson , DO Attending Provider Active Start: June 02, 2025 Dr. Ben Johnson , DO Other Provider Active S tart: June 02, 2025 Team Status: Active Member Role/Relationship Status Dates Dr. Marci Nuñez , DO Primary Care Provider Ac tive Start: June 03, 2025 Dr. Bossman Sanders , DO Emergency Provider Active S tart: June 03, 2025 Dr. Ben Johnson , DO Admit Provider Active S tart: June 03, 2025 Dr. Ben Johnson , DO Attending Provider Active Start: June 03, 2025 Dr. Ben Johnson , DO Other Provider Active S tart: June 03, 2025 Team Status: Active Member Role/Relationship Status Dates Dr. Marci Nuñez , DO Primary Care Provider Ac tive Start: June 04, 2025 Dr. Bossman Sanders , DO Emergency Provider Active S tart: June 04, 2025 Dr. Ben Johnson , DO Admit Provider Active S tart: June 04, 2025 Dr. Ben Johnson , DO Attending Provider Active Start: June 04, 2025 Dr. Ben Johnson , DO Other Provider Active S tart: June 04, 2025 Team Status: Active Member Role/Relationship Status Dates Dr. Marci Nuñez , DO Primary Care Provider Ac tive Start: June 05, 2025 Dr. Bossman Sanders , DO Emergency Provider Active S tart: June 05, 2025 Dr. Ben Johnson , DO Admit Provider Active S tart: June 05, 2025 Dr. Ben Johnson , DO Attending Provider Active Start: June 05, 2025 Dr. Ben Johnson , DO Other Provider Active S tart: June 05, 2025 Team Status: Active Member Role/Relationship Status Dates Dr. Marci Nuñez , DO Primary Care Provider Ac tive Start: June 06, 2025 Dr. Bossman Sanders , DO Emergency Provider Active S tart: June 06, 2025 Dr. Ben Johnson , DO Admit Provider Active S tart: June 06, 2025 Dr. Ben Johnson , DO Other Provider Active S tart: June 06, 2025 Dr. Ganesh Kiran MD Attending Provider Active Start: June 06, 2025 Dr. Ganesh Kiran MD Other Provider Active Sta rt: June 06, 2025 Team Status: Active Member Role/Relationship Status Dates Dr. Marci Nuñez , DO Primary Care Provider Ac tive Start: June 07, 2025 Dr. Bossman Sanders , DO Emergency Provider Active S tart: June 07, 2025 Dr. Ben Johnson , DO Admit Provider Active S tart: June 07, 2025 Dr. Ben Johnson , DO Other Provider Active S tart: June 07, 2025 Dr. Ganesh Kiran MD Other Provider Active Sta rt: June 07, 2025 Dr. Shan Lockett , DO Attending Provider Active Start: June 07, 2025 Dr. Shan Lockett , DO Other Provider Active St art: June 07, 2025 Team Status: Active Member Role/Relationship Status Dates Dr. Marci Nuñez , DO Primary Care Provider Ac tive Start: June 07, 2025 Dr. Bossman Sanders , DO Emergency Provider Active S tart: June 07, 2025 Dr. Ben Johnson , DO Admit Provider Active S tart: June 07, 2025 Dr. Ben Johnson , DO Other Provider Active S tart: June 07, 2025 Dr. Ganesh Kiran MD Attending Provider Active Start: June 07, 2025 Dr. Ganesh Kiran MD Other Provider Active Sta rt: June 07, 2025 Dr. Shan Lockett , DO Other Provider Active St art: June 07, 2025 Team Status: Active Member Role/Relationship Status Dates Dr. Marci Nuñez , DO Primary Care Provider Ac tive Start: June 08, 2025 Dr. Bossman Sanders , DO Emergency Provider Active S tart: June 08, 2025 Dr. Ben Johnson , DO Admit Provider Active S tart: June 08, 2025 Dr. Ben Johnson , DO Other Provider Active S tart: June 08, 2025 Dr. Ganesh Kiran MD Attending Provider Active Start: June 08, 2025 Dr. Ganesh Kiran MD Other Provider Active Sta rt: June 08, 2025 Dr. Shan Lockett , DO Other Provider Active St art: June 08, 2025 Team Status: Active Member Role/Relationship Status Dates Dr. Marci Nuñez , DO Primary Care Provider Ac tive Start: June 09, 2025 Dr. Bossman Sanders , DO Emergency Provider Active S tart: June 09, 2025 Dr. Ben Johnson , DO Admit Provider Active S tart: June 09, 2025 Dr. Ben Johnson , DO Other Provider Active S tart: June 09, 2025 Dr. Ganesh Kiran MD Attending Provider Active Start: June 09, 2025 Dr. Ganesh Kiran MD Other Provider Active Sta rt: June 09, 2025 Dr. Shan Lockett , DO Other Provider Active St art: June 09, 2025 Team Status: Active Member Role/Relationship Status Dates Dr. Marci Nuñez , DO Primary Care Provider Ac tive Start: June 10, 2025 Dr. Bossman Sanders , DO Emergency Provider Active S tart: June 10, 2025 Dr. Ben Johnson , DO Admit Provider Active S tart: June 10, 2025 Dr. Ben Johnson , DO Other Provider Active S tart: June 10, 2025 Dr. Ganesh Kiran MD Attending Provider Active Start: June 10, 2025 Dr. Ganesh Kiran MD Other Provider Active Sta rt: June 10, 2025 Dr. Shan Lockett , DO Other Provider Active St art: June 10, 2025 Team Status: Active Member Role/Relationship Status Dates Dr. Marci Nuñez , DO Primary Care Provider Ac tive Start: June 11, 2025 Dr. Bossman Sanders , DO Emergency Provider Active S tart: June 11, 2025 Dr. Ben Johnson , DO Admit Provider Active S tart: June 11, 2025 Dr. Ben Johnson , DO Other Provider Active S tart: June 11, 2025 Dr. Ganesh Kiran MD Attending Provider Active Start: June 11, 2025 Dr. Ganesh Kiran MD Other Provider Active Sta rt: June 11, 2025 Dr. Shan Lockett , DO Other Provider Active St art: June 11, 2025 Source Comments (unrecognize d section and content) In the event this informatio n is protected by the Federal Confidentiality of Alcohol and Drug Abuse Patient Records regulations: The Federal rules restrict any use of the information to criminally investigate or prosecute any alcohol or drug abuse patient.[facility] System[facility] the event this information is protected by the Federal Confidentiality of Alcohol and Drug Abuse Patient Records regulations: The Federal rules restrict any use of the information to criminally investigate or prosecute any alcohol or drug abuse patient.[facility] SystemIn the event this information is protected by the Federal Confidentiality of Alcohol and Drug Abuse Patient Records regulations: The Federal rules restrict any use of the information to criminally investigate or prosecute any alcohol or drug abuse patient.[facility] SystemIn the event this information is protected by the Federal Confidentiality of Alcohol and Drug Abuse Patient Records regulations: The Federal rules restrict any use of the information to criminally investigate or prosecute any alcohol or drug abuse patient.[facility] SystemIn the event this information is protected by the Federal Confidentiality of Alcohol and Drug Abuse Patient Records regulations: The Federal rules restrict any use of the information to criminally investigate or prosecute any alcohol or drug abuse patient.[facility] SystemIn the event this information is protected by the Federal Confidentiality of Alcohol and Drug Abuse Patient Records regulations: The Federal rules restrict any use of the information to criminally investigate or prosecute any alcohol or drug abuse patient.[facility] SystemIn the event this information is protected by the Federal Confidentiality of Alcohol and Drug Abuse Patient Records regulations: The Federal rules restrict any use of the information to criminally investigate or prosecute any alcohol or drug abuse patient.[facility] SystemIn the event this information is protected by the Federal Confidentiality of Alcohol and Drug Abuse Patient Records regulations: The Federal rules restrict any use of the information to criminally investigate or prosecute any alcohol or drug abuse patient.[facility] SystemIn the event this information is protected by the Federal Confidentiality of Alcohol and Drug Abuse Patient Records regulations: The Federal rules restrict any use of the information to criminally investigate or prosecute any alcohol or drug abuse patient.[facility] SystemIn the event this information is protected by the Federal Confidentiality of Alcohol and Drug Abuse Patient Records regulations: The Federal rules restrict any use of the information to criminally investigate or prosecute any alcohol or drug abuse patient.[facility] SystemIn the event this information is protected by the Federal Confidentiality of Alcohol and Drug Abuse Patient Records regulations: The Federal rules restrict any use of the information to criminally investigate or prosecute any alcohol or drug abuse patient.[facility] SystemIn the event this information is protected by the Federal Confidentiality of Alcohol and Drug Abuse Patient Records regulations: The Federal rules restrict any use of the information to criminally investigate or prosecute any alcohol or drug abuse patient.[facility] SystemIn the event this information is protected by the Federal Confidentiality of Alcohol and Drug Abuse Patient Records regulations: The Federal rules restrict any use of the information to criminally investigate or prosecute any alcohol or drug abuse patient.[facility] SystemIn the event this information is protected by the Federal Confidentiality of Alcohol and Drug Abuse Patient Records regulations: The Federal rules restrict any use of the information to criminally investigate or prosecute any alcohol or drug abuse patient.[facility] SystemIn the event this information is protected by the Federal Confidentiality of Alcohol and Drug Abuse Patient Records regulations: The Federal rules restrict any use of the information to criminally investigate or prosecute any alcohol or drug abuse patient.[facility] SystemIn the event this information is protected by the Federal Confidentiality of Alcohol and Drug Abuse Patient Records regulations: The Federal rules restrict any use of the information to criminally investigate or prosecute any alcohol or drug abuse patient.[facility] SystemIn the event this information is protected by the Federal Confidentiality of Alcohol and Drug Abuse Patient Records regulations: The Federal rules restrict any use of the information to criminally investigate or prosecute any alcohol or drug abuse patient.[facility] SystemIn the event this information is protected by the Federal Confidentiality of Alcohol and Drug Abuse Patient Records regulations: The Federal rules restrict any use of the information to criminally investigate or prosecute any alcohol or drug abuse patient.[facility] SystemIn the event this information is protected by the Federal Confidentiality of Alcohol and Drug Abuse Patient Records regulations: The Federal rules restrict any use of the information to criminally investigate or prosecute any alcohol or drug abuse patient.[facility] SystemIn the event this information is protected by the Federal Confidentiality of Alcohol and Drug Abuse Patient Records regulations: The Federal rules restrict any use of the information to criminally investigate or prosecute any alcohol or drug abuse patient.[facility] SystemIn the event this information is protected by the Federal Confidentiality of Alcohol and Drug Abuse Patient Records regulations: The Federal rules restrict any use of the information to criminally investigate or prosecute any alcohol or drug abuse patient.[facility] SystemIn the event this information is protected by the Federal Confidentiality of Alcohol and Drug Abuse Patient Records regulations: The Federal rules restrict any use of the information to criminally investigate or prosecute any alcohol or drug abuse patient.[facility] SystemIn the event this information is protected by the Federal Confidentiality of Alcohol and Drug Abuse Patient Records regulations: The Federal rules restrict any use of the information to criminally investigate or prosecute any alcohol or drug abuse patient.[facility] SystemIn the event this information is protected by the Federal Confidentiality of Alcohol and Drug Abuse Patient Records regulations: The Federal rules restrict any use of the information to criminally investigate or prosecute any alcohol or drug abuse patient.[facility] SystemIn the event this information is protected by the Federal Confidentiality of Alcohol and Drug Abuse Patient Records regulations: The Federal rules restrict any use of the information to criminally investigate or prosecute any alcohol or drug abuse patient.[facility] SystemIn the event this information is protected by the Federal Confidentiality of Alcohol and Drug Abuse Patient Records regulations: The Federal rules restrict any use of the information to criminally investigate or prosecute any alcohol or drug abuse patient.[facility] SystemIn the event this information is protected by the Federal Confidentiality of Alcohol and Drug Abuse Patient Records regulations: The Federal rules restrict any use of the information to criminally investigate or prosecute any alcohol or drug abuse patient.[facility] SystemIn the event this information is protected by the Federal Confidentiality of Alcohol and Drug Abuse Patient Records regulations: The Federal rules restrict any use of the information to criminally investigate or prosecute any alcohol or drug abuse patient.[facility] SystemIn the event this information is protected by the Federal Confidentiality of Alcohol and Drug Abuse Patient Records regulations: The Federal rules restrict any use of the information to criminally investigate or prosecute any alcohol or drug abuse patient.[facility] SystemIn the event this information is protected by the Federal Confidentiality of Alcohol and Drug Abuse Patient Records regulations: The Federal rules restrict any use of the information to criminally investigate or prosecute any alcohol or drug abuse patient.[facility] SystemIn the event this information is protected by the Federal Confidentiality of Alcohol and Drug Abuse Patient Records regulations: The Federal rules restrict any use of the information to criminally investigate or prosecute any alcohol or drug abuse patient.[facility] SystemIn the event this information is protected by the Federal Confidentiality of Alcohol and Drug Abuse Patient Records regulations: The Federal rules restrict any use of the information to criminally investigate or prosecute any alcohol or drug abuse patient.[facility] SystemIn the event this information is protected by the Federal Confidentiality of Alcohol and Drug Abuse Patient Records regulations: The Federal rules restrict any use of the information to criminally investigate or prosecute any alcohol or drug abuse patient.[facility] SystemIn the event this information is protected by the Federal Confidentiality of Alcohol and Drug Abuse Patient Records regulations: The Federal rules restrict any use of the information to criminally investigate or prosecute any alcohol or drug abuse patient.[facility] SystemIn the event this information is protected by the Federal Confidentiality of Alcohol and Drug Abuse Patient Records regulations: The Federal rules restrict any use of the information to criminally investigate or prosecute any alcohol or drug abuse patient.[facility] SystemIn the event this information is protected by the Federal Confidentiality of Alcohol and Drug Abuse Patient Records regulations: The Federal rules restrict any use of the information to criminally investigate or prosecute any alcohol or drug abuse patient.[facility] SystemIn the event this information is protected by the Federal Confidentiality of Alcohol and Drug Abuse Patient Records regulations: The Federal rules restrict any use of the information to criminally investigate or prosecute any alcohol or drug abuse patient.[facility] SystemIn the event this information is protected by the Federal Confidentiality of Alcohol and Drug Abuse Patient Records regulations: The Federal rules restrict any use of the information to criminally investigate or prosecute any alcohol or drug abuse patient.[facility] SystemIn the event this information is protected by the Federal Confidentiality of Alcohol and Drug Abuse Patient Records regulations: The Federal rules restrict any use of the information to criminally investigate or prosecute any alcohol or drug abuse patient.[facility] SystemIn the event this information is protected by the Federal Confidentiality of Alcohol and Drug Abuse Patient Records regulations: The Federal rules restrict any use of the information to criminally investigate or prosecute any alcohol or drug abuse patient.[facility] SystemIn the event this information is protected by the Federal Confidentiality of Alcohol and Drug Abuse Patient Records regulations: The Federal rules restrict any use of the information to criminally investigate or prosecute any alcohol or drug abuse patient.[facility] Reason for Visit (unrecogniz ed section and [...] HIGH MDM 60-74 MINUTES Ghazala Mccord MD [address] [id number] Referral ID Status Reason Start Date Expiration Date V isits Requested Visits Authorized [id number] Closed PCP Requested Referral 06/04/2022 06/04/2023 1 1 Reason Comments Established Patient Specialty Diagnoses / Procedures Referred By Oni angel Referred To Contact Diagnoses Tremor of left hand Procedures PROVIDER ORDERED FOLLOW UP OFFICE/OUTPATIENT [facility] MDM 60-74 MINUTES Sherif Ramirez MD [address] [id number] Referral ID Status Reason Start Date Expiration Date V isits Requested Visits Authorized [id number] Closed PCP Requested Referral 06/23/2022 06/23/2023 1 [...] AREA 1 DAY IMAGING Sherif Ramirez MD [address] [place] [address] [facility] [address] [place] [address] Referral ID Status Reason Start Date Expiration Date V isits Requested Visits Authorized [id number] Closed Auto-Generate d Referral 07/01/2023 07/30/2024 1 1 Reason Comments Established Patient Reason Onset Date Comments Other 06/28/2024 [place] Document ation Reason Onset Date Comments Release of Information 07/11/2024 Reason Onset Date Comments Other 07/11/2024 Needs call back from office Reason Onset Date Comments Other 08/04/2024 Reason Onset Date Comments Release of Information 08/05/2024 Specialty Diagnoses / Procedures Referred By Oni angel Referred To Contact Radiology / IMAGING Diagnoses Interstitial emphysema PET SCAN/CT INITIAL STAGING SKULL BASE TO MID THIGH J98.2 EMPHYSEMA,INTERSTITIAL ANIRUDH OFFICE SCHEDULED ORDER IN SCANNED DOCS AUTH# [id number] GOOD 08/01/24-09/30/[address] ATTENUATION SKULL BASE MID-THIGH PET CT Kalen Izaguirre MD [address] [facility] [address] [place] [address] [facility] [address] [facility] [address] Referral ID Status Reason Start Date Expiration Date Visits Re quested Visits Authorized [id number] Closed 08/01/2024 09/30/2024 1 1 Reason Onset [...] Neurology - Medication Refill 05/21/2025 [facility] X[facility] Reason Onset Date Comments Care Coordination 06/02/2025 Page Reason Onset Date Comments Release of Information 06/02/2025 Reason Onset Date Comments Other 06/09/2025 Update on patien t care Reason Onset Date Comments Abdominal Pain 06/16/2025 Reason Onset Date Comments SPP Neurology - Discontinuation Of Therapy 06/19 [facility] XR Care Team (unrecognized sect ion and content) Care Team Personnel Name: LARY BHANDARI DO Position: P4 Physician - Primary Care Med Service: Active Provider Member Role: Primary Care Physician Address: Address: [address] [place], [place] [address] [place] [address] Name: JAC CHRISTENSEN MD Position: P4 Physician - Cardiology Med Service: Active Provider Member Role: Buckle Wire Inserter Address: Address: [facility] [address] [id number]- Care Team Related Persons Name: SONG PENA Address: Home [address] [place], [place] [id number] Care Team Personnel Name: LARY BHANDARI DO Position: P4 Physician - Primary Care Med Service: Active Provider Member Role: Primary Care Physician Address: Address: [facility] [place], [place] [id number] [place] [address] Name: JAC CHRISTENSEN MD Position: P4 Physician - Cardiology Med Service: Active Provider Member Role: Buckle Wire Inserter Address: Address: [facility] [address] [place] [id number]- Care Team Related Persons Name: SONG PENA Address: Home [address] [place], [place] [id number] Care Team Personnel Name: LARY BHANDARI DO Position: P4 Physician - Primary Care Med Service: Active Provider Member Role: Primary Care Physician Address: Address: [facility] [place] [address] Name: JAC CHRISTENSEN MD Position: P4 Physician - Cardiology Med Service: Active Provider Member Role: Buckle Wire Inserter Address: Address: [address] [place] [id number]- Care Team Related Persons Name: SONG PENA Address: Home [address] [place], [place] [id number] Care Team Personnel Name: LARY BHANDARI DO Position: P4 Physician - Primary Care Med Service: Active Provider Member Role: Primary Care Physician Address: Address: [facility] [place] [id number] Name: JAC CHRISTENSEN MD Position: P4 Physician - Cardiology Med Service: Active Provider Member Role: Buckle Wire Inserter Address: Address: [address] [facility] [address] [place] [address]- Care Team Related Persons Name: CHINA PENANN Address: Home [address] [place], [place] [phone] Care Team Personnel Name: LARY BHANDARI DO Position: P4 Physician - Primary Care Member Role: Primary Care Physician Address: Address: [address] [place] [address]- Name: JAC CHRISTENSEN MD Position: P4 Physician - Cardiology Address: Address: [address] [facility] [address] [address]- Care Team Related Persons Name: SONG PENA Address: Home [address] [place], [place] [id number] Care Team Personnel Name: LARY BHANDARI DO Position: P4 Physician - Primary Care Med Service: Active Provider Member Role: Primary Care Physician Address: Address: [address] [place] [address]- Name: JAC CHRISTENSEN MD Position: P4 Physician - Cardiology Med Service: Active Provider Member Role: Buckle Wire Inserter Address: Address: [address] [facility] [address] [address]- Care Team Related Persons Name: SONG PENA Address: Home [address] [place], [place] [id number] Care Team Personnel Name: LARY BHANDARI DO Position: P4 Physician - Primary Care Med Service: Active Provider Member Role: Primary Care Physician Address: Address: [facility] [place] [address]- Name: JAC CHRISTENSEN MD Position: P4 Physician - Cardiology Med Service: Active Provider Member Role: Buckle Wire Inserter Address: Address: [address] [facility] [address] [id number]- [place] Care Team Related Persons Name: PENASONG MIJARES Address: Home [address] [place], [place] [id number] Care Team Personnel Name: LARY BHANDARI DO Position: P4 Physician - Primary Care Member Role: Primary Care Physician Address: Address: [address] [place] [address]- Name: JAC CHRISTENSEN MD Position: P4 Physician - Cardiology Member Role: Buckle Wire Inserter Address: Address: [address] [facility] [address] [place] [address]- Care Team Related Persons Name: SONG PENA Address: Home [address] [place], [place] [phone] Care Team Personnel Name: LARY BHANDARI DO Position: P4 Physician - Primary Care Member Role: Primary Care Physician Address: Address: [address] [place] [address]- Name: JAC CHRISTENSEN MD Position: P4 Physician - Cardiology Member Role: Buckle Wire Inserter Address: Address: [address] [facility] [address] [place] [address]- Care Team Related Persons Name: SONG PENA Address: Home [address] [place], [place] [id number] Care Team Personnel Name: LARY BHANDARI DO Position: P4 Physician - Primary Care Member Role: Primary Care Physician Address: Address: [address] [place] [address]- Name: JAC CHRISTENSEN MD Position: P4 Physician - Cardiology Member Role: Buckle Wire Inserter Address: Address: [address] [facility] [address] [place] [address]- Care Team Related Persons Name: SONG PENA Address: Home [address] [place], [place] [phone] Care Team Personnel Name: LARY BHANDARI DO Position: P4 Physician - Primary Care Member Role: Primary Care Physician Address: Address: [address] [place], [place] [address], [place] [address]- [place] Name: JAC CHRISTENSEN MD Position: P4 Physician - Cardiology Member Role: Buckle Wire Inserter Address: Address: [address] [facility] [address] [address] [place] Care Team Related Persons Name: SONG PENA Address: Home [address] [place], [place] [id number] Care Team Personnel Name: LARY BHANDARI DO Position: P4 Physician - Primary Care Member Role: Primary Care Physician Address: Address: [address] [place] [id number]- Name: JAC CHRISTENSEN MD Position: P4 Physician - Cardiology Member Role: Buckle Wire Inserter Address: Address: [address] [place] [address] [address]- [place] Care Team Related Persons Name: SONG PENA Address: Home [address] [place], [place] [id number] Care Team Personnel Name: LARY BHANDARI DO Position: P4 Physician - Primary Care Member Role: Primary Care Physician Address: Address: [address] [place] [id number]- Name: JAC CHRISTENSEN MD Position: P4 Physician - Cardiology Member Role: Buckle Wire Inserter Address: Address: [address] [place] [address] [address]- [place] Care Team Related Persons Name: SONG PENA Address: Home [address], [place] [id number] Care Team Personnel Name: ADRIENNE BYERS DO Position: P4 Physician - Primary Care Member Role: Primary Care Physician Address: Address: [address] [place] [id number]- Name: JAC CHRISTENSEN MD Position: P4 Physician - Cardiology Member Role: Buckle Wire Inserter Address: Address: [address] [facility] [address] [address]- [place] Care Team Related Persons Name: SONG PENA Address: Home [address] [place], [place] [id number] Goals (unrecognized section and content) Goals may [...] BE BASED ON THE PRIMARY CLINICAL RECORDS. [facility] [employer] [facility]. provides no warranty or guarantee of the accuracy or completeness of information in this document.
--- NOTE | 2025-07-01 19:27 | PCM.HP.STD ---
[facility] - General General Date of Service: 07/01/25 Chief Complaint: weakness. [facility] Narrative BETTY CARO, is a 70 F who presents with weakness and shortness of breath. Patient was admitted from the to 11 June. Patient was found to have pneumonia and was discharged with Levaquin. 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 Per the , patient was doing too well to go to [facility] facility so went home. While at home she has gradually regressed and is weaker. She has lost roughly 10 pounds. Over the past week. States that things do not taste good. She was checked for COVID last admission which was negative. The change in her taste and smell has happened recently after this most recent illness. But because of her weakness, and weight loss she was brought to the emergency room and the is exasperated and not able to safely care for her at this time. [facility] Medical History Duodenal stenosis Pneumonia Dyspnea Back pain History of Holter monitoring History of stress test History of echocardiogram Cardiology follow-up encounter Ischemic colitis History of left heart catheterization History of mechanical ventilation Cardiogenic pulmonary edema Acute hypoxic respiratory failure Multiple lung nodules Major depressive disorder Left bundle branch block NSTEMI (non-ST elevated myocardial infarction) Diabetic peripheral vascular disease Diabetic nephropathy Chronic kidney disease (CKD) Bleeding ulcer Dyslipidemia Chronic systolic heart failure Pacemaker Congestive heart failure (CHF) Cerebral palsy Anxiety and depression Heart failure with reduced ejection fraction GERD (gastroesophageal reflux disease) Insomnia Transient ischemic attack AV node dysfunction Ischemic cardiomyopathy Presence of biventricular implantable cardioverter-defibrillator Ulcer Restless legs High cholesterol Anxiety Former smoker ICD (implantable cardioverter-defibrillator) in place Coronary artery disease CVA (cerebral vascular accident) PFO (patent foramen ovale) Cardiac resynchronization therapy defibrillator ([employer]-D) in place Myocarditis Hyperlipidemia Hypertension Home Medications ?Medication ?Instructions ?Recorded ?Last Taken ?Type clonazepam 1 mg tablet 1 mg PO QHS anxiety 11/18/14 06/01/25 History trazodone 50 mg tablet 50 mg PO DAILY Anxiety 11/18/14 06/01/25 History aspirin 81 mg tablet,delayed 81 mg PO .COMPLEX heart 10/01/23 06/01/25 History release rosuvastatin 20 mg tablet 20 mg PO QHS cholesterol 02/21/24 06/01/25 History furosemide 20 mg tablet 20 mg PO QDAY PRN for 2lb weight 06/13/24 06/19/24 History gain escitalopram oxalate 5 mg tablet 5 mg PO QDAY Mood 11/28/24 06/01/25 History polyethylene glycol 3350 17 17 g PO DAILY Constipation 11/28/24 06/01/25 History gram/dose oral powder (Miralax) lamotrigine 100 mg tablet 100 mg PO QDAY Anxiety 01/23/25 06/02/25 History ferrous sulfate 325 mg (65 mg 325 mg PO QDAY Supplement 02/13/25 06/01/25 History iron) tablet (Feosol) linaclotide 145 mcg capsule 145 mcg PO QAM Constipation #60 02/14/25 Unknown Rx (Linzess) caps deutetrabenazine 6 mg 6 mg PO DAILY involuntary Movements 04/19/25 04/20/25 08:50 History tablet,extended release 24 hr (Austedo XR) oxycodone 5 mg tablet 5 mg PO Q6H PRN PRN Pain Score 04/30/25 Unknown Rx 6-10 7 days #28 tabs pantoprazole 40 mg tablet,delayed 40 mg PO DAILY 30 days #30 tabs 04/30/25 06/01/25 Rx release baclofen 5 mg tablet 5 mg PO DAILY SPASCITY 05/29/25 06/01/25 History docusate sodium 100 mg capsule 100 mg PO DAILY CONSTIPATION 05/29/25 Unknown History metformin 500 mg tablet 500 mg PO BID Diabetes 05/29/25 06/01/25 History ondansetron 4 mg disintegrating 4 mg PO Q8H #30 tabs 05/30/25 06/01/25 Rx tablet phenazopyridine 100 mg tablet 100 mg PO TID PRN PRN pain 06/02/25 06/02/25 History hyoscyamine sulfate 0.125 mg tablet 0.125 mg PO TID PRN dyspepsia #90 06/04/25 Unknown Rx tabs lisinopril 10 mg tablet 5 mg (1/2 x 10 mg) PO DAILY #30 06/11/25 Unknown Rx tabs albuterol sulfate 90 mcg/actuation 1 puff inhalation Q6H PRN PRN 07/01/25 Unknown History aerosol inhaler shortness of breath or wheezing Allergy/AdvReac Type Severity Reaction Status Date / Time No Known Allergies Allergy Verified 07/01/25 16:40 Family History Father Heart disease Myocardial infarction Mother Anxiety and depression Suicide and self-inflicted injury from suicide age 52. Surgical History History of cardiac catheterization Presence of stent in coronary artery History of bilateral cataract extraction History of skin surgery S/P colon polypectomy History of cardiac defibrillator placement History of cholecystectomy History of coronary artery stent placement Social History household members: spouse Smoking Status: Former smoker how long ago did patient quit smokin-1.5 ppd from teen until quit in 2008. alcohol intake: never substance use type: does not use caffeine: Yes seatbelt use: always do you feel safe at home: Yes additional social history: - [employer] Complains of short of breath but is on her percent on nasal cannula. All review of systems were negative except as mentioned above in the history of present illness and the other review of systems. Vital Signs Vital Signs Vital Signs: 07/01/25 16:38 07/01/25 16:38 07/01/25 17:05 Temperature 36.8 C Temperature Source Oral Pulse Rate 78 Respiratory Rate 18 Respiratory Effort Normal Non-Labored Respiratory Depth Normal Respiratory Pattern Normal Blood Pressure 149/72 H Blood Pressure Mean 97 Pulse Ox 98 Oxygen Delivery Method Nasal Cannula Room Air Room Air Oxygen Flow Rate (L/min) 3 07/01/25 17:16 07/01/25 17:58 07/01/25 18:00 Temperature Temperature Source Pulse Rate 71 103 H 87 Respiratory Rate 18 14 25 H Respiratory Effort Respiratory Depth Respiratory Pattern Normal Blood Pressure Blood Pressure Mean Pulse Ox Oxygen Delivery Method Oxygen Flow Rate (L/min) 07/01/25 19:00 07/01/25 19:16 Temperature 36.8 C 36.8 C Temperature Source Oral Pulse Rate 83 70 Respiratory Rate 22 H 22 H Respiratory Effort Respiratory Depth Respiratory Pattern Blood Pressure 172/67 H 172/67 H Blood Pressure Mean 102 102 Pulse Ox 100 100 Oxygen Delivery Method Nasal Cannula Oxygen Flow Rate (L/min) 3 Weight Weight: 56.699 kg Body Mass Index (BMI) 19.0 Physical Exam Const alert and no apparent distress Constitutional Narrative: No respiratory distress. No conversational dyspnea. No tachypnea. HEENT normocephalic and head/scalp atraumatic HEENT Narrative: Mucous membranes moist. No evidence of any thrush. No oropharyngeal lesions. Resp normal respiratory effort and no retractions Resp Narrative: Bibasilar crackles Cardio regular rate, regular rhythm, S1 normal heart sound and S2 normal heart sound GI normal to inspection, nondistended, normoactive bowel sounds and soft to palpation Extremity normal to inspection Neuro Sensorium / Orientation: awake and alert Psych affect normal Results Lab / Micro Data 07/01/25 17:12 07/01/25 17:12 Labs: Laboratory Results - last 24 hr 07/01/25 17:12: WBC 4.0 L, RBC 3.46 L, Hgb 10.3 L, Hct 31.8 L, MCV 91.9, MCH 29.8, MCHC 32.4, RDW Std Deviation 44.8 H, RDW Coeff of Edita 13.2, Plt Count 192, MPV 10.6, Immature Gran % (Auto) 0.200, Neut % (Auto) 49.2, Lymph % (Auto) 34.9, [place] % (Auto) 13.2 H, Eos % (Auto) 2.0, Baso % (Auto) 0.5, Absolute Neuts (auto) 2.0, Absolute Lymphs (auto) 1.40, Nucleated RBC % 0, D-Dimer Quant (PE/DVT) 1.39 H*, Sodium 140, Potassium 3.6, Chloride 108, Carbon Dioxide 24.6, Anion Gap 8, BUN 12, Creatinine 0.90, Estim Creat Clear Calc 50.57, Est GFR (MDRD) Non-Af 68, BUN/Creatinine Ratio 13.2, Glucose 100 H, Calcium 8.1, Troponin T High Sens 11, NT pro BNP II 948 H EKG Initial EKG: Attestation: I personally reviewed and interpreted this EKG as follows: Prior EKG tracings: available for review (Ventricular paced rhythm) Imaging Radiology Impression Chest X-Ray 07/01/25 17:37 IMPRESSION: Improvement in the bibasilar pulmonary opacities, compatible with pneumonitis/pneumonia. Reading Location: [facility] Chest CTA 07/01/25 18:03 IMPRESSION: 1. No evidence of pulmonary embolism. 2. Stable ground-glass opacities throughout the dependent and bibasilar lungs, compatible with pneumonitis/pneumonia. Clinical correlation recommended. Reading Location: [facility] Assessment & Plan Assessment/Plan (1) Failure to thrive: PLAN: Patient has declined since being discharged late last month. Plan is for PT OT evaluate and treat. Case management to assist on disposition. does not feel he can safely care for her at this time. (2) Protein calorie malnutrition: PLAN: Weight is down about a kilogram in half since last admission. Will start supplements. Consult nutrition for further recommendations. PLAN: Plan COPD: Not in exacerbation. Patient does feel short of breath but she is 100%. Anemia: Stable. Continue with ferrous sulfate. VTE prophylaxis with enoxaparin CODE STATUS: Addressed with the patient and her . Patient is to be full code. Charges/Coding Visit Charges Inpatient E&M: 76008 Init Hosp L2
--- OUTSIDE RECORDS SUMMARY | 2025-07-01 19:52 | XMS RPT_ITS | CCD ---
Author Organization [facility]ini[facility]ky Care Team Providers Care Rehab Liaison Name Role Phone DR LARY WHEAT DO Primary Care Physician [phone] Jesus Manuel Freitas DO Primary Care Provider Jesus Manuel Freitas DO Primary Care Provider Jesus Manuel Freitas DO Primary Care Provider DR LARY WHEAT DO Primary Care Physician [phone] DR LARY WHEAT DO Primary Care Physician [phone] Jesus Manuel Freitas DO Primary Care Provider Odilon ACCOUNT SERVICES REPRESENTATIVE.NIRMALA, Kailyn K Unavailable ADRIENNE BYERS DO Primary Care Physician [phone] Gilbert ACCOUNT SERVICES REPRESENTATIVE.NIRMALA, Gissell Unavailable Jesus Manuel Freitas DO Primary Care Provider Odilon ACCOUNT SERVICES REPRESENTATIVE.NIRMALA, Kailyn K Unavailable Gilbert ACCOUNT SERVICES REPRESENTATIVE.NIRMALA, Gissell Unavailable Dr. Adrienne Byers Primary Care Provider Dr. Alexsandra Vela Attending Provider Dr. Jose Turk Attending Provider Dr. Uday Orosco Emergency Provider Dr. Tony Corona Admit Provider Unavailabl e Dr. Tony Corona Other Provider Unavailabl e Dr. Ben Johnson Attending Provider Dr. Ben Johnson Other Provider Dr. Adrienne Byers Referring Provider [phone] Brisa Jennings Attending Provider Unavailable Le, Dr. [...] Provider Dr. Adrienne Christine Attending Provider [phone] Ben Johnson Referring Provider Dr. Heike Horta Referring Provider Jesus Manuel Freitas DO Primary Care Provider James MORENO, ar A Unavailable ADRIENNE BYERS DO Primary Care Unavailable ADRIENNE BYERS DO Attending Unavailable HALKO DO, ADRIENNE Primary Care Unavailable NANDINI GORMAN, ANIRUDH Yeboah Attending Unaniurka lable HALKO DO, ADRIENNE Primary Care Unavailable [...] DO, DR YORK Referring Unavailable JAMES MORENO, SHERIF HANSON Attending Unavailab le HALKO DO, ADRIENNE Primary Care Unavailable HALKO DO, ADRIENNE Attending Unavailable HALKO DO, ADRIENNE Primary Care Unavailable HALKO DO, ADRIENNE Primary Care Unavailable JAMES MORENO, CARLA HANSON Attending Unavailab le HALKO DO, ADRIENNE Primary Care Unavailable HALKO DO, ADRIENNE Attending Unavailable FERMIN MORENO, DR ANTHAN Attending Unavailab le HALKO DO, ADRIENNE Primary Care Unavailable GALO MAYERS Attending Unavailable HALKO DO, ADRIENNE Primary Care Unavailable Rick Mcdermott APRN, CNP Primary Care Pr ovider Marci Lopez Primary Care Provider [phone] Rick Mcdermott APRN, CNP Primary Care Pr [...] Garcia Emergency Provider Rosa Pabon Attending Provider Emmett MORENO, Dr. Ge Attending Provider Rosa Pabon Referring Provider Dipti Matt Attending Provider Kaykay Siegel Attending Provider Earnest MORENO, Dr. Meyers Attending Provider Earnest MORENO, Dr. Meyers Referring Provider Daysi MORENO, Dr. Peng Attending Provider Daysi MORENO, Dr. Peng Referring Provider Mayte De La O Attending Provider John FOWLER, Dr. Marci Baird Primary Care [facility] er John FOWLER, Dr. Marci Baird Referring Provider Rosa Pabon Attending Provider John FOWLER, Dr. Marci Baird Attending Provider Addison FOWLER, Dr. Garcia Attending Provider [phone] Addison FOWLER, Dr. Garcia Emergency Provider LEYLA MURPHY Referring Unavailable BROWNJESUS MANUEL R Primary Care Unavailable LEYLA MURPHY Referring Unavailable BROWN, JESUS MANUEL R Primary Care Unavailable John FOWLER, Dr. Marci Baird Primary Care [facility] er John FOWLER, Dr. Marci Baird Referring Provider Rosa Pabon Attending Provider Vito FOWLER, Dr. Walters Emergency Provider Andmain DO, Dr. Walters Emergency Provider Kwesi FOWLER, Dr. Marsh Admit Provider Kwesi FOWLER, Dr. Marsh Attending Provider Kwesi FOWLER, Dr. Marsh Other Provider John FOWLER, Dr. Marci Baird [facility] Care [facility] er John FOWLER, Dr. Marci Baird Referring Provider Kaykay Siegel Attending Provider Earnest MORENO, Dr. Meyers Attending Provider Earnest MORENO, Dr. Meyers Referring Provider Daysi MORENO, Dr. Peng Attending Provider Daysi MORENO, Dr. Peng Referring Provider Mayte De La O Attending Provider Rosa Pabon Attending Provider Addison FOWLER, Dr. Garcia Attending Provider Dr. Jose Jaime DO Emergency Provider Vito FOWLER, Dr. Walters Emergency Provider Kwesi FOWLER, Dr. Marsh Admit Provider Kwesi FOWLER, Dr. Marsh Attending Provider Kwesi FOWLER, Dr. Marsh Other Provider Estuardo MORENO, Dr. Alonso Carter Admit Provider Estuardo MORENO, Dr. Alonso Carter Attending Provider Estuardo MORENO, Dr. Alonso Carter Referring Provider Levy FOWLER, Dr. Torrez Attending Provider Levy FOWLER, Dr. Torrez Other Provider John FOWLER, Dr. Marci Baird [facility] er John FOWLER, Dr. Marci Baird Referring Provider Estuardo MORENO, Dr. Alonso Carter Admit Provider Estuardo MORENO, Dr. Alonso Carter Attending Provider Estuardo MORENO, Dr. Alonso Carter Referring Provider Levy FOWLER, Dr. Torrez Attending Provider Friend , Dr. Torrez Other Provider John DO, Dr. Marci Baird Primary Care [facility] er John FOWLER, Dr. Marci Baird Referring Provider Daysi MORENO, Dr. Peng Referring Provider Arron FOWLER, Dr. Diehl Emergency Provider John FOWLER, Dr. Marci Baird Primary Care [facility] er John FOWLER, Dr. Marci Baird Referring Provider Daysi MORENO, Dr. Peng Referring Provider Dr. Fazal Heller DO Attending Provider Arron FOWLER, Dr. Diehl Emergency Provider Kaykay Siegel Attending Provider John FOWLER, Dr. Marci Baird Primary Care [facility] er Dr. Danish Tavarez MD Attending Provider John FOWLER, Dr. Marci Baird Primary [facility] er John FOWLER, Dr. Marci Baird Referring Provider Daysi MORENO, Dr. Peng Attending Provider Dr. Fazal Heller DO Attending Provider Kaykay Siegel Attending Provider Marilyn FOWLER, Dr. Keita Emergency Provider Tereletsky , Dr. Contreras Admit Provider Tereletsky DO, Dr. Ben Attending Provider Fortino FOWLER Jesus Manuel Bairon Primary Care Provider Alex FOWLER, Dr. Contreras Other Provider Magno MORENO, Dr. Andersen Attending Provider Dr. Ben Johnson DO Attending Provider Magno MORENO, Dr. Andersen Other Provider JOHN, BIRNAMWOOD Primary Care Unavailable JOHN, BIRNAMWOOD Referring Unavailable JOHN, BIRNAMWOOD Attending [facility]available [facility] Unavailable MCCRORKPINA Referring Unavailable [facility] Henderson Attending Unavailable JOHN, BIRNAMWOOD Referring Unavailable JOHN, BIRNAMWOOD Attending Unavailable [facility] Primary Care Unavailable JOHN, BIRNAMWOOD Referring Unavailable JOHN, BIRNAMWOOD Attending Unavailable RICK MUÑOZ Primary Care Unavailable [facility] Care Unavailable JOHN, BIRNAMWOOD Referring Unavailable [facility], [place]IR[place] Attending Unavailable [facility] Primary Care UnavailMaximo Dunlap Admitting Unavailable Maximo Orosco Attending Unavailable [facility] UnavailMiya Bahena Admitting Unavailable Miya Thomas Consulting Unavailable Anabell Simms Attending Unavailable [facility] Care [facility]ailabl e [facility] Referring Unavailabl Jose Nunn Attending Unavailable [facility] Primary Care Unavailkalen e Ben Johnson Admitting Unavailable Ben Johnson Consulting Unavailable Ganesh Kiran Attending Unavailable Shan Lockett Consulting Unavailable [facility] Primary Care UnavailBen Chong Admitting Unavailable Ben Johnson Consulting Unavailable Ganesh Kiran Attending Unavailable Ganesh Kiran Consulting Unavailable FriendShan Attending Unavailable Shan Lockett Consulting Unavailable [facility] Primary Care [facility]availabl e [facility] Referring Unavailabl Rosa Bellamy Attending Unavailable [facility] Primary Care Unavailkalen e Miya Thomas Admitting Unavailable Miya Thomas Consulting Unavailable Miya Thomas Attending Unavailable Anabell Simms Attending Unavailable Anabell Simms Consulting Unavailable [facility] Unavailabl e Alexsandra Vela Attending Unavailabl e [facility] Unavailabl e Jose Jaime Attending Unavailable Rosa Rodriguez Attending Unavailable Rosa Rodriguez Referring Unavailable [facility]availabl e [facility] Unavailabl e Adrienne Christine Referring Unavailable Adrienne Christine Attending Unavailable [facility] Attending Unavailabl e [facility] Referring Unavailabl e [facility] Unavailabl e [facility] Referring Unavailabl e [facility] Attending Unavailabl e [facility] Unavailabl e [facility] Unavailabl e Luigi Tinoco Attending Unavailable Luigi Tinoco Referring Unavailable [facility] Unavailabl Maximo Hairston Admitting Unavailable Maximo Orosco Attending Unavailable Maximo Orosco Consulting Unavailable Ben Johnson Attending Unavailable [facility] Unavailabl e [facility] Referring Unavailabl Adrienne Sarabia Attending Unavailable Rosa Rodriguez Attending Unavailable [facility] Referring [facility]availabl e [facility] Unavailabl e [facility] Unavailabl e [facility] Referring Unavailabl Jose Nunn Attending Unavailable Danish Tavarez Attending Unavailable [facility] Unavailabl e Danish Tavarez Referring Unavailable Rosa Rodriguez Attending Unavailable [facility] Referring Unavailabl e [facility] Unavailabl Adrienne Sarabia Attending Unavailable [facility] Referring [facility]availabl e [facility] Unavailabl Rosa Bellamy Attending Unavailable [facility] Referring Unavailabl e [facility]availabl e [facility] Referring Unavailabl e [facility] Unavailabl Dipti Cervantes Attending Unavailable [facility] Referring Unavailabl e [facility] Unavailabl e Kaykay Siegel Attending Unavail able [facility] Referring Unavailabl e [facility] Unavailabl e OctavianokarLuigi whipple Attending Unavailable [facility] Unavailabl e [facility] Referring Unavailabl e Luigi Tinoco Attending Unavailable DaysiDanish washing[place] Attending Unavailable [facility] Unavailabl e Daysi, Danish Referring Unavailable [facility] Referring Unavailabl e [facility] Unavailabl e [address] EQUIPMENT OPERATOR, Mayte Attending Unavailable [facility] Unavailabl e [facility] Referring Unavailabl e Luigi Tinoco Attending Unavailable [facility] Unavailabl e Daysi, Mar[place] Referring Unavailable DaysiLisa washingtonl Attending Unavailable [facility] Unavailabl Adrienne Sarabia Attending Unavailable Adrienne Byers Referring Unavailable [facility] Unavailabl e Rosa Rodriguez Attending Unavailable [facility] Referring Unavailabl e [facility]availabl e [facility] Referring Unavailabl e Kaykay Siegel Attending Unavail able DaysiDanish [place] Attending Unavailable [facility] Unavailabl e Daysi, Mar[place] Referring Unavailable Daysi Danish Attending Unavailable [facility] Unavailabl e Daysi, [place]opa Referring Unavailable [facility] Referring Unavailabl e [facility] Unavailabl e Shan Lockett Attending Unavailable John, Marci Brie Primary Care Unavailabl e Estuardo, Alonso Chi Attending Unavailable Estuardo, Alonso Chi Referring Unavailable Estuardo, Alonso Chi Admitting Unavailable [facility] Unavailabl e Varun Morrell Attending Unavailable [facility] Unavailabl e Jose Jaime Attending Unavailable Rosa Rodriguez Attending Unavailable [facility] Referring Unavailabl e John, [facility] Primary Care Unavailabl e John, [facility] Care Unavailabl e Danish Tavarez Attending Unavailable Daysi Maricopa Referring Unavailable [facility] Care Unavailabl e Rosa Rodriguez Attending Unavailable [facility] Referring Unavailabl e [facility] Unavailabl e Fazal Heller Attending Unavailable [facility] Unavailabl e [address] EQUIPMENT OPERATORYuridia Attending Unavailable [facility] Unavailabl e [facility] Referring Unavailabl e Shan Lockett Consulting Unavailable Shan Lockett Attending Unavailable Shan Lockett Attending Unavailable Anabell Simms Referring Unavailable Rosa Rodriguez Attending Unavailable Rosa Rodriguez Referring Unavailable [facility] Unavailabl e John, [facility] Primary Care Unavailabl e Klusty-Vic Jeffrey Referring Unavailabl e Klusty-VicJosephel Attending Unavailabl e JESUS MANUEL FREITAS Primary Care Unavailable SELF Referring Unavailable CECILIA OWENS Attending Unavailable JESUS MANUEL FREITAS Primary Care Unavailable JESUS MANUEL FREITAS Primary Care Unavailable LEYLA MURPHY Attending Unavailable JESUS MANUEL FREITAS Primary Care Unavailable Allergies Allergy Classification Reported Allergen(s) Allergy Type Date of Onset Reaction(s) Facility HMG-CoA Reductase Inhibitors (statins) (1 source) atorvastatin Drug Allergy 04-03-2010 [facility] (20 sources) atorvastatin; Translations: [ATORVASTATIN CALCIUM] Drug Allergy 04-03-2010 [facility] Medications Current Medications Medication Drug Class(es) Dates Sig (Normalized) Sig (Original) acetaminophen 500 mg oral capsule (20 sources) Start: 03-22-2024 Acetaminophen 500 mg cap 500 mg. 03/22/2024 Active Start: 03-13-2024 End: 04-30-2025 Start: 03-13-2024 End: 06-13-2024 take 2 tablets [...] 13, 2024 12:00am Start: 02-29-2024 End: 03-13-2024 Start: 02-29-2024 End: 03-13-2024 take 650 mg by mouth every four hours as needed Acetaminophen Discontinued 650 MG PO EVERY 4 HOURS NEEDED 0 February 29, 2024 12:00am March 13, 2024 5:50pm ARIPiprazole 2 mg oral tablet (20 sources) [...] tab(s), 0 Refill(s), 11/25/21 10:33:00 EST, Pharmacy: [facility] [id number] [facility] [employer], 172, cm, 11/20/21 10:16:00 EST, Height, 72, kg, 11/20/21 10:16:00 EST, Dosing Weight Start Date: 11/20/21 Stop Date: 11/25/21 Status: Ordered baclofen 5 mg oral tablet (20 sources) gamma-Aminobutyric Acid-ergic Agonist Start: 05-29-2025 Start: 02-21-2024 End: 04-30-2025 Start: 10-29-2023 End: 06-13-2024 take 1 tablet by mouth twice daily Baclofen 5 mg tablet Discontinued 5 mg PO TWICE A DAY February 21, 2024 12:00am June 13, 2024 1:57pm muscle spasms Start: 10-07-2023 End: 02-21-2024 Start: 09-28-2023 End: 10-07-2023 Start: 05-12-2023 End: [...] withdrawal seizures. Take 2 tablets by mo [facility] three times daily. Do not abruptly stop [...] BID, # 30 tab(s), 6 Refill(s), Pharmacy: [facility]/pharmacy #[id number], 172.7, cm, 06/09/22 8:41:00 EDT, [...] BID, # 180 tab(s), 0 Refill(s), Pharmacy: [facility]/pharmacy #[id number], 172.7, cm, 05/12/22 12:20:00 EDT, [...] Start Date: 04/29/23 Status: Ordered Start: 04-29-2023 End: 05-29-2025 take 1 tablet by mouth once daily cholecalciferol (VITAMIN D3) 1,000 unit tab tablet Take 1,000 Units by mouth once daily. 04/29/2023 Active ciprofloxacin 3 mg/ml / dexamethasone 1 mg/ml otic suspension (2 sources) Corticosteroid, Quinolone Antimicrobial Start: 12-08-2022 Ciprodex 0.3%-0.1% otic suspension Dose = 4 drop(s), Ear, left, BID, # 7.5 mL, 0 Refill(s), Pharmacy: [facility]/pharmacy #[id number], 172.7, cm, 12/08/22 14:58:00 EST, [...] qDay, # 30 tab(s), 6 Refill(s), Pharmacy: [facility]/pharmacy #[id number], 172.7, cm, 02/17/22 15:57:00 EDT, [...] deutetrabenazine XR (AUSTEDO XR) 6 mg tablet (8 sources) Start: 03-12-2025 End: 09-08-2025 take 1 tablet by mouth once daily deutetrabenazine XR (AUSTEDO XR) 6 mg tablet Take 1 tablet by mouth once daily. 30 tablet 5 05/23/2025 10:33 AM EDT 03/12/2025 09/08/2025 Active Start: 03-12-2025 [...] mg oral capsule (20 sources) Start: 05-29-2025 Start: 06-13-2024 End: 04-30-2025 Start: 07-29-2023 docusate sodiu m 100 mg oral capsule Dose : 100 mg = 1 cap(s), Oral, BID, PRN as needed for constipation, # 60 cap(s), 2 Refill(s), Pharmacy: [facility]/pharmacy #[id number], 172.7, cm, 08/27/23 13:53:00 EDT, Height, kg, 08/27/23 13:53:00 EDT, Dosing Weight Start Date: 09/08/23 Status: Ordered Docusate Sodium 100 mg tab Take by mouth once daily. Active escitalopram 5 mg oral table t (20 sources) Serotonin Reuptake Inhibitor Start: 11-28-2024 Start: 04-29-2023 End: 02-27-2025 End: 06-23-2022 take 1 tablet by mouth [...] Instructions, 1 tab(s) Oral qDay on Wed, Th, Sat, Sun, # 30 tab(s), 6 Refill(s), Pharmacy: [facility]acy #[id number], 172.7, cm, 03/09/22 15:20:00 EDT, Height, [...] Wed/Wed/Wed, # 30 tab(s), 3 Refill(s), [id number] 172[facility]7, cm, 02/17/22 15:57:00 EDT, Height, kg, 02/17/22 15:57:00 EDT, Dosing Weight Start Date: 02/17/22 Status: Ordered Start: 12-05-2021 Lasix 20 mg or al tablet Dose : 20 mg = 1 tab(s), Oral, qDay, # 30 tab(s), 3 Refill(s), [id number] 172.7, cm, 12/24/21 2:11:00 EST, Height, kg, 12/24/21 2:11:00 EST, Dosing Weight Start Date: 12/25/21 Status: Ordered Comment on above: as needed. glipiZIDE er 2.5 mg 24 hr extended release oral tablet (20 sources) Sulfonylurea Start: 02-12-2022 glipiZIDE 2.5 mg oral tablet, extended release Dose : 2.5 mg = 1 tab(s), Oral, qDayM, # 90 tab(s), 1 Refill(s), Pharmacy: [facility], 172.7, cm, 12/30/21 10:10:00 EST, Height, kg, 02/12/22 11:01:00 EDT, Dosing Weight Start Date: 02/12/22 Status: Ordered Start: 07-18-2021 glipiZIDE 2.5 mg oral tablet, extended release Dose : 2.5 mg = 1 tab(s), Oral, qDayM, # 90 tab(s), 1 Refill(s), Pharmacy: [facility], 172, cm, 07/18/21 13:16:00 EDT, Height, kg, 07/18/21 13:16:00 EDT, Dosing Weight Start Date: 07/18/21 Status: Ordered hyoscyamine sulfate 0.125 mg oral tablet (20 sources) Start: 12-01-2024 End: 06-04-2025 take 0.125 mg by maida th three times daily hyoscyamine sulfate 0.125 mg ODT Take 0. 125 mg by mouth three times a day. Active Iron Chews (20 sources) Start: 05-01-2022 Iron Chews See Instructions, 18 mcg gummy daily, 0 Refill(s) Start Date: 05/01/22 Status: Ordered lamoTRIgine 100 mg oral tablet (20 sources) Mood Stabilizer, Anti-epileptic Agent Start: 01-23-2025 linaclotide 0.145 mg oral capsule (20 sources) Guanylate Cyclase-C Agonist Start: 02-14-2025 take 1 capsule by mouth once daily in the morning LINZESS 145 mcg capsule Take 145 mcg by mouth every morning. 02/14/2025 Active Start: 12-12-2024 End: 04-19-2025 lisinopril 10 mg oral tablet (9 sources) Angiotensin Converting Enzyme Inhibitor Start: 06-11-2025 Start: 02-13-2021 End: 06-23-2022 lisinopril 5 mg oral tablet Dose : 5 mg = 1 tab(s), Oral, qDay, X 90 day(s), # 90 tab(s), 3 Refill(s), 02/08/22 10:37:00 EDT, Pharmacy: [facility], 171, cm, 12/11/20 15:33:00 EST, Height, kg, 02/11/21 13:50:00 EDT, Dosing Weight Start Date: 02/13/21 Stop Date: 02/08/22 Status: Ordered Comment on above: Take 5 mg by mouth o nce daily. magnesium (as citrate)-melatonin 71.5 mg-1 mg oral tablet (2 sources) Start: 05-01-2022 take 1 tablet by mouth once daily magnesium (as citrate)-melatonin 71.5 mg-1 mg oral tablet See Instructions, [facility] Brand 84 mg gummy daily, 0 Refill(s) Start Date: 05/01/22 Status: Ordered metFORMIN hydrochloride 500 mg oral tablet (20 sources) Biguanide Start: 01-18-2025 End: 05-29-2025 Start: 02-21-2024 End: 11-23-2024 Start: 11-18-2014 End: 05-29-2025 take 1 tablet by mouth twice daily metFORMIN (GLUCOPHAGE) 500 mg tablet Take 1 tablet by mouth twice daily. 0 12/06/2014 Active Start: 11-18-2014 End: 02-21-2024 Comment on above: Take 1 tablet by maida twice daily. ondansetron 4 mg disintegrat ing oral tablet (20 sources) Serotonin-3 Receptor Antagonist Start: 05-22-2025 End: 05-29-2025 Start: 05-22-2025 End: 05-29-2025 take 1 tablet by mouth every six hours as needed for nausea and vomiting Ondansetron 4 mg tablet,disintegrating Discontinued 4 mg PO EVERY 6 HOURS as needed for nausea and vomiting 20 0 May 22, 2025 12:00am May 29, 2025 3:38pm Start: 11-02-2024 End: 11-28-2024 oxyCODONE hydrochloride 5 mg oral tablet (9 sources) Opioid Agonist Start: 04-30-2025 pantoprazole 40 mg delayed r elease oral tablet (20 sources) Proton Pump Inhibitor Start: 11-18-2014 End: 04-30-2025 Start: 11-18-2014 End: 04-30-2025 Comment on above: Take 1 tablet by [facility] twice daily. phenazopyridine hydrochlorid e 100 mg oral tablet (13 sources) Start: 04-19-2025 End: 06-02-2025 polyethylene glycol 3350 170 00 mg powder for oral solution (20 sources) Osmotic Laxative Start: 11-28-2024 Start: 11-28-2024 Polyethylene G lycol 3350 (Miralax) 17 gram/dose powder Active 17 g PO TWICE A DAY November 28, 2024 1:00am Start: 07-29-2023 End: 03-13-2024 Polyethylene Glycols (14 sources) polyethylene gly col 400 (BLINK TEARS [...] day, # 84 tab(s), 0 Refill(s), Pharmacy: [facility]/pharmacy #[id number], 172.7, cm, 11/02/22 16:36:00 EST, [...] qDay, # 90 cap(s), 1 Refill(s), Pharmacy: [facility], 172.7, cm, 12/30/21 10:10:00 EST, Height, kg, 02/12/22 11:01:00 EDT, Dosing Weight Start Date: 02/12/22 Status: Ordered Start: 02-04-2022 ramipril 2.5 m g oral capsule Dose : 2.5 mg = 1 cap(s), Oral, qDay, # 30 cap(s), 0 Refill(s), Pharmacy: [facility]/pharmacy #[id number], 172.7, cm, 12/30/21 10:10:00 EST, Height, kg, 12/30/21 10:10:00 EST, Dosing Weight Start Date: 02/04/22 Status: Ordered Start: 12-05-2021 End: 03-15-2022 ramipril 2.5 mg oral capsule Dose : 2.5 mg = 1 cap(s), Oral, qDay, # 30 cap(s), 1 Refill(s), Pharmacy: [facility]/pharmacy #[id number], 162, cm, 11/22/21 4:04:00 EST, Height, kg, 11/22/21 4:04:00 EST, Dosing Weight Start Date: 12/05/21 Stop Date: 02/03/22 Status: Ordered rosuvastatin calcium 20 mg o ral tablet (20 sources) HMG-CoA Reductase Inhibitor Start: 10-29-2023 Start: 09-24-2023 End: 10-07-2023 Start: 04-29-2023 rosuvastatin 2 0 mg oral tablet 0 Refill(s) Start Date: 04/29/23 Status: Ordered Start: 05-26-2022 take 1 tablet by maida th once daily rosuvastatin 20 mg oral tablet 1 tab(s), Oral, qDay, stop as of 11/27/22, # 90 tab(s), 3 Refill(s), Pharmacy: [facility], 172.7, cm, 05/12/22 12:20:00 EDT, Height, kg, 05/22/22 12:54:00 EDT, Dosing Weight Start Date: 05/26/22 Status: Ordered Start: 06-16-2021 rosuvastatin 2 0 mg oral tablet Dose : 20 mg = 1 tab(s), Oral, Daily, # 90 tab(s), 3 Refill(s), Pharmacy: [facility], 170.3, cm, 04/17/21 13:26:00 EDT, [...] mg oral capsule (6 sources) Start: 02-28-20 25 End: 02-28-20 26 take 1 capsule by mouth once daily valbenazine (INGREZZA) 40 mg capsule Take 1 capsule by mouth once daily. 30 capsule 11 02/27/2025 02/27/2026 Active 24 hr venlafaxine 75 mg extended release oral capsule (1 source) Serotonin and Norepinephrine Reuptake Inhibitor Start: 11-02-20 22 Effexor XR 75 mg oral capsule, extended [...] mg oral tablet (2 sources) Start: 03-22-20 24 Vitamin C 500 mg oral tablet Dose [...] Class(es) Dates Sig (Normalized) Sig (Original) acetaminophen 325 mg / oxyCODONE hydrochloride 5 mg oral tablet (20 sources) Opioid Agonist Start: 04-19-2025 End: 04-30-2025 Start: 02-05-2025 End: 04-30-2025 take 1 tablet by mouth every six hours as needed for pain oxyCODONE-acetaminophen (PERCOCET) 5-325 mg tablet 1 TABLET ORAL EVERY 6 HOURS NEEDED FOR SEVERE PAIN 30 DAYS 02/05/2025 Active Start: 11-18-2024 End: 11-28-2024 Start: 11-18-2024 End: 11-28-2024 Oxycodone-Acetaminophen (Per cocet) 5-325 mg tablet Discontinued 1 {tbl} PO EVERY 6 HOURS as needed for pain 8 2 0 November 18, 2024 November 28, 2024 3:07pm Pain Pain, unspecified Start: 06-28-2024 End: 07-03-2024 Start: 06-28-2024 End: 07-03-2024 Oxycodone-Acetaminophen (Per cocet) 5-325 mg tablet Discontinued 1 {tbl} PO EVERY 6 HOURS as needed for pain 12 3 0 June 28, 2024 July 03, 2024 6:47pm Colitis Noninfective gastroenteritis and colitis, unspecified [id number] 200 actuat albuterol 0.09 mg/actuat metered dose inhaler (20 sources) beta2-Adrenergic Agonist Start: 12-13-2024 End: 12-13-2024 take 4 puff(s) by inhalation once 4 puff, Inhalation, Once, On Wed12/13/24 at 1415, For 1 dose Start: 09-09-2024 End: 04-30-2025 Start: 09-09-2024 End: 04-30-2025 Albuterol Sulfate 90 mcg/act uation HFA aerosol inhaler Discontinued 1 NMA INHALATION EVERY 6 HOURS as needed for shortness of breath or wheezing 8.5 0 September 09, 2024 12:00am April 30, 2025 7:08pm Start: 02-21-2024 albuterol sulf ate 90 mcg/actuation aebs 02/21/2024 Active amLODIPine 5 mg / olmesartan medoxomil 20 mg oral tablet (20 sources) Dihydropyridine Calcium Channel Tomeka, Angiotensin 2 Receptor Tomeka Start: 11-18-2014 End: 09-28-2023 Start: 11-18-2014 End: 09-28-2023 Amlodipine-Olmesartan (Joaquín) 1 UDTAB tablet Discontinued 0.5 NMA PO EVERY OTHER DAY November 18, 2014 1:00am September 29, 2023 12:35am Start: 04-03-2010 End: 06-23-2022 amlodipine bes/olmesartan me d(JOAQUÍN 5 MG-20 MG TAB) Take 1/2 tablet daily 0 04/03/2010 06/23/2022 Discontinued (Other) Comment on above: Take 1/2 tablet edil y amoxicillin 875 mg / clavula devika 125 mg oral tablet (20 sources) Penicillin-class Antibacterial Start: 11-27-2024 End: 12-07-2024 Start: 11-27-2024 End: 12-07-2024 Amoxicillin-Pot Clavulanate 875-125 mg tablet Discontinued 1 {tbl} PO TWICE A DAY 20 10 0 November 27, 2024 1:00am December 06, 2024 1:00am December 07, 2024 1:12am Start: 06-28-2024 End: 07-05-2024 Start: 06-28-2024 End: 07-05-2024 Amoxicillin-Pot Clavulanate 875-125 mg tablet Discontinued 1 {tbl} PO TWICE A DAY 14 7 0 June 28, 2024 12:00am July 05, 2024 4:10pm ascorbic acid 500 mg oral tablet (20 sources) Vitamin C Start: 08-01-2024 End: 11-23-2024 Ascorbic Acid (Vitamin C) 50 0 mg tablet Discontinued 125 mg PO 1000 August 01, 2024 3:34pm November 23, 2024 3:26pm Start: 03-13-2024 End: 02-27-2025 aspirin 81 mg delayed release oral tablet (20 sources) Platelet Aggregation Inhibitor, Nonsteroidal Anti-inflammatory Drug Start: 09-28-2023 End: 10-01-2023 Start: 09-28-2023 End: 10-01-2023 take 1 tablet by mouth once daily Aspirin 81 mg tablet,delayed release (DR/EC) Discontinued 81 mg PO 1 time daily 1 0 September 30, 2023 12:54pm October 01, 2023 4:16pm Start: 01-08-2023 End: 04-08-2023 aspirin 81 mg oral delayed r elease tablet Dose : 81 mg = 1 tab(s), Oral, Every other day, # 45 tab(s), 0 Refill(s), Pharmacy: [facility]/pharmacy #[id number], 172.7, cm, 12/08/22 14:58:00 EST, Height, kg, 12/08/22 14:58:00 EST, Dosing Weight Start Date: 01/08/23 Stop Date: 04/08/23 Status: Ordered Start: 12-11-2022 aspirin 81 mg oral delayed release tablet Dose : 81 mg = 1 tab(s), Oral, Every other day, # 15 tab(s), 5 Refill(s), Pharmacy: [facility]/pharmacy #[id number], 172.7, cm, 12/08/22 14:58:00 EST, Height, kg, 12/08/22 14:58:00 EST, Dosing Weight Start Date: 12/11/22 Status: Ordered Start: 12-05-2021 End: 11-30-2022 aspirin 81 mg oral delayed r elease tablet Dose : 81 mg = 1 tab(s), Oral, Every other day, # 90 tab(s), 3 Refill(s), Pharmacy: [facility]/pharmacy #[id number], 162, cm, 11/22/21 4:04:00 EST, Height, kg, 11/22/21 4:04:00 EST, Dosing Weight Start Date: 12/05/21 Stop Date: 11/30/22 Status: Ordered Start: 12-05-2021 End: 11-30-2022 aspirin 81 mg oral delayed r elease tablet Dose : 81 mg = 1 tab(s), Oral, qDay, # 90 tab(s), 3 Refill(s), Pharmacy: [facility]/pharmacy #[id number], 162, cm, 11/22/21 4:04:00 EST, [...] every other day. atorvastatin 40 mg oral tabl et (20 sources) HMG-CoA Reductase Inhibitor Start: 10-07-2023 End: 02-21-2024 Start: 10-07-2023 End: 02-21-2024 take 1 tablet by mouth at bedtime Atorvastatin 40 mg tablet Discontinued 40 mg PO AT BEDTIME October 07, 2023 1:00am February 21, 2024 6:40pm CHOLESTEROL bisacodyl 5 mg delayed relea se oral tablet (16 sources) Stimulant Laxative Start: 02-29-2024 End: 03-13-2024 budesonide 3 mg delayed rele ase oral capsule (20 sources) Corticosteroid Start: 02-29-2024 End: 06-09-2024 Start: 02-29-2024 End: 03-13-2024 take 9 mg by mouth once daily Budesonide Active 9 MG P O DAILY 90 March 13, 2024 12:00am calcium carbonate 1500 mg / cholecalciferol 0.01 mg oral tablet (18 sources) Vitamin D Start: 02-21-2024 End: 05-23-2024 [...] IRON SUPPLEMENTS cephalexin 500 mg oral capsule (6 sources) Cephalosporin Antibacterial Start: 05-22-2025 End: 05-29-2025 Start: 08-19-2022 End: 08-26-2022 cephalexin 500 mg oral capsu le Dose : 500 mg = 1 cap(s), Oral, QID, Take with a probiotic, X 7 day(s), # 28 cap(s), 0 Refill(s), 08/26/22 23:45:00 EDT, Generalized weakness Fatigue, 71.5 Start Date: 08/19/22 Stop Date: 08/26/22 Status: Ordered citalopram 20 mg oral tablet (20 sources) Serotonin Reuptake Inhibitor Start: 11-18-2014 End: 03-13-2024 Comment on above: Take 1 tablet by maida once daily. clopidogrel 75 mg oral tablet (20 sources) [id number] Platelet Inhibitor Start: 05-18-2016 End: 03-13-2024 Clopidogrel 75 MG tablet Discontinued 1 {tbl} PO AT BEDTIME May 18, 2016 12:00am March 13, 2024 5:51pm anti platelet Start: 12-26-2009 End: 05-29-2025 Comment on above: Take one(1) tablet d aily. Take 75 mg by mouth once daily. dicyclomine hydrochloride 20 mg oral tablet (20 sources) Anticholinergic Start: 05-22-2025 End: 05-29-2025 Start: 03-22-2024 End: 04-21-2024 dicyclomine 10 mg oral capsu le Dose : 20 mg = 2 cap(s), Oral, BID, PRN abd cramping, 30 to 60 minutes before meals, # 60 cap(s), 5 Refill(s), Pharmacy: [facility]/pharmacy #[id number], 172.7, cm, 03/22/24 13:19:00 EDT, Height, kg, 03/22/24 13:19:00 EDT, Dosing Weight Start Date: 04/18/24 Status: Ordered Start: 02-29-2024 End: 01-18-2025 Start: 02-29-2024 End: 02-27-2025 Start: 02-29-2024 End: 03-13-2024 take 20 mg by mouth three times daily before mealtime Dicyclomine Active 20 MG PO THREE TIMES DAILY BEFORE MEALS 180 March 13, 2024 12:00am empagliflozin 10 mg oral tab let (20 sources) Sodium-Glucose Cotransporter 2 Inhibitor Start: 09-28-2023 End: 01-18-2025 Start: 02-23-2022 End: 02-27-2025 take 1 tablet by mouth once daily Empagliflozin (Jardiance) 10 mg tablet Discontinued 5 mg PO daily August 01, 2024 3:32pm January 18, 2025 2:30pm diabetes 0.4 ml enoxaparin sodium 100 mg/ml prefilled syringe (20 sources) Low Molecular Weight Heparin Start: 10-07-2023 End: 02-21-2024 Start: 10-07-2023 End: 02-21-2024 Enoxaparin 40 mg/0.4 mL syri nge Discontinued 40 mg SC 06October 07, 2023 1:00am February 21, 2024 6:39pm BLOOD THINNER ergocalciferol 1.25 mg oral capsule (20 sources) Provitamin D2 Compound Start: 11-18-2014 End: 09-28-2023 Start: 11-18-2014 End: 09-28-2023 take 1 capsule [...] by mouth. loratadine 10 mg oral tablet (18 sources) Start: 06-13-2024 End: 11-23-2024 Start: 03-22-2024 Claritin 10 mg oral tablet Dose : 10 mg = 1 tab(s), Oral, qDay, # 90 tab(s), 0 Refill(s) Start Date: 03/22/24 Status: Ordered Start: 11-02-2023 Claritin 5 mg oral tablet, chewable Dose : 5 mg = 1 tab(s), Chewed, qDay, # 30 tab(s), 0 Refill(s) Start Date: 11/02/23 Status: Ordered melatonin 10 mg oral tablet (18 sources) Start: 06-13-2024 End: 11-23-2024 Start: 06-13-2024 End: 11-23-2024 take 5 mg [...] tablet (20 sources) beta-Adrenergic Tomeka Start: 01-18-2025 End: 05-29-2025 Start: 09-28-2023 End: 11-23-2024 Start: 09-28-2023 take 12.5 mg by mouth once casper ly Metoprolol Succinate Active 12.5 MG PO DAILY September 28, 2023 1:00am Start: 05-18-2023 End: 05-29-2025 take 1 tablet by mouth once daily metoprolol succinate ER (TOPROL XL) 25 mg 24 hr tablet Take 25 mg by mouth once daily. 05/18/2023 Active Start: 10-30-2022 metoprolol suc cinate 25 mg oral TABLET extended release Dose : 12.5 mg = 0.5 tab(s), Oral, qDay, Do not crush or chew (controlled release), # 15 tab(s), 6 Refill(s), Pharmacy: [facility]/pharmacy #[id number], 172.7, cm, 10/30/22 10:04:00 EST, Height Start Date: 10/30/22 Status: Ordered Start: 02-12-2022 End: 03-14-2022 Toprol-XL 25 mg oral tablet, extended release Dose : 25 mg = 1 tab(s), Oral, qDay, # 90 tab(s), 1 Refill(s), Pharmacy: [facility], 172.7, cm, 12/30/21 10:10:00 EST, Height, kg, 02/12/22 11:01:00 EDT, Dosing Weight Start Date: 02/12/22 Stop Date: 03/14/22 Status: Ordered Start: 02-04-2022 End: 03-06-2022 Toprol-XL 25 mg oral tablet, extended release Dose : 25 mg = 1 tab(s), Oral, qDay, # 30 tab(s), 0 Refill(s), Pharmacy: [facility]/pharmacy #[id number], 172.7, cm, 12/30/21 10:10:00 EST, Height, kg, 12/30/21 10:10:00 EST, Dosing Weight Start Date: 02/04/22 Stop Date: 03/06/22 Status: Ordered Start: 12-05-2021 End: 02-03-2022 Toprol-XL 25 mg oral tablet, extended release Dose : 25 mg = 1 tab(s), Oral, qDay, # 30 tab(s), 1 Refill(s), Pharmacy: [facility]/pharmacy #[id number], 162, cm, 11/22/21 4:04:00 EST, [...] tablet (20 sources) Cholinergic Muscarinic Antagonist Start: 02-21-2024 End: 11-23-2024 Start: 02-21-2024 End: 11-23-2024 take 1 tablet [...] day, # 90 tab(s), 1 Refill(s), [id number] 172.7, cm, 10/29/23 11:29:00 EST, Height, kg, 10/29/23 11:29:00 EST, Dosing Weight Start Date: 10/29/23 Status: Ordered Start: 10-29-2023 take 1 tablet by maida th every hour, then take 0.5 tablet by mouth once daily oxybutynin 5 mg/24 hours oral tablet, extended release Dose : 2.5 mg = 0.5 tab(s), Oral, qDay, # 90 tab(s), 1 Refill(s), [id number] 172.7, cm, 10/29/23 11:29:00 EST, Height, kg, 10/29/23 11:29:00 EST, Dosing Weight Start Date: 10/29/23 Status: Ordered Start: 09-28-2023 End: 10-07-2023 Start: 06-15-2023 take 1 tablet by maida th every hour, then take 1 tablet by mouth once daily oxybutynin 5 mg/24 hours oral tablet, extended release Dose : 5 mg = 1 tab(s), Oral, qDay, # 90 tab(s), 0 Refill(s), [id number], 172.7, cm, 05/18/23 10:38:00 EDT, Height, kg, 05/18/23 10:38:00 EDT, Dosing Weight Start Date: 06/15/23 Status: Ordered Start: 02-12-2022 take 1 tablet by maida th every hour, then take 1 tablet by mouth once daily oxybutynin 5 mg/24 hours oral tablet, extended release Dose : 5 mg = 1 tab(s), Oral, qDay, stop as of 11/27/22, # 90 tab(s), 1 Refill(s), Pharmacy: [facility], 172.7, cm, 12/30/21 10:10:00 EST, Height, kg, 02/12/22 11:01:00 EDT, Dosing Weight Start Date: 02/12/22 Status: Ordered Start: 02-04-2022 take 1 tablet by maida th every hour, then take 1 tablet by mouth once daily oxybutynin 5 mg/24 hours oral tablet, extended release Dose : 5 mg = 1 tab(s), Oral, qDay, # 30 tab(s), 0 Refill(s), Pharmacy: [facility]/pharmacy #[id number], 172.7, cm, 12/30/21 10:10:00 EST, Height, kg, 12/30/21 10:10:00 EST, Dosing Weight Start Date: 02/04/22 Status: Ordered Start: 02-13-2021 take 1 tablet by maida th every hour, then take 1 tablet by mouth once daily oxybutynin 5 mg/24 hours oral tablet, extended release Dose : 5 mg = 1 tab(s), Oral, qDay, # 90 tab(s), 3 Refill(s), Pharmacy: [facility], 171, cm, 12/11/20 15:33:00 EST, [...] mg by mouth e very other day. polyethylene glycol 400 2.5 mg/ml ophthalmic solution (14 sources) Start: 01-23-2025 End: 06-02-2025 Start: 01-23-2025 apply 0.25 drop(s) i nto the eye(s) every hour as needed Polyethylene Glycol 400 (Blink Gel Tears) 0.25 % drops,gel Active 1 NMA OPHTHALMIC .q1hr as needed for Dry eyes January 23, 2025 1:00am Start: 01-23-2025 Polyethylene G lycol 400 (Blink Gel Tears) 0.25 % drops,gel Active NMA OPHTHALMIC January 23, 2025 1:00am polysaccharide iron complex 150 mg oral capsule (17 sources) Start: 03-13-2024 End: 05-23-2024 microencapsulated potassium chloride 20 meq extended release oral tablet (16 sources) Start: 03-13-2024 End: 05-23-2024 Start: 02-17-2022 potassium chlo ride 20 mEq oral tablet, extended release Dose : 20 mEq = 1 tab(s), Oral, qDay, Take with food, # 30 tab(s), 6 Refill(s), Pharmacy: [facility]/pharmacy #[id number], 172.7, cm, 02/17/22 15:57:00 EDT, Height, kg, 02/17/22 15:57:00 EDT, Dosing Weight Start Date: 02/17/22 Status: Ordered predniSONE 50 mg oral tablet (4 sources) Start: 11-27-2022 End: 12-02-2022 predniSONE 50 mg oral tablet Dose : 25 mg = 0.5 tab(s), Oral, qDayM, # 2.5 tab(s), 0 Refill(s), Pharmacy: [facility]/pharmacy #[id number], 172.7, cm, 11/27/22 14:14:00 EST, Height Start Date: 11/27/22 Stop Date: 12/02/22 Status: Ordered prochlorperazine 5 mg oral tablet (20 sources) Phenothiazine Start: 03-13-2024 End: 01-23-2025 Start: 03-13-2024 End: 02-27-2025 take 1 tablet [...] TABLET PO MOWEFR September 28, 2023 12:00am October 07, 2023 12:53pm Start: 09-28-2023 spironolactone Active 0.5 TABLET PO MOWEFR September 28, 2023 12:00am Start: 02-01-2023 End: 01-18-2025 Start: 04-13-2022 spironolactone 25 mg oral tablet Dose : 12.5 mg = 0.5 tab(s), Oral, Wed/Wed/Wed, # 30 tab(s), 3 Refill(s), Pharmacy: [id number], 172.7, cm, 03/20/22 8:38:00 EDT, Height, kg, [...] wed,wed,wed, # 15 tab(s), 3 Refill(s), Pharmacy: [facility]/pharmacy #[id number], 172.7, cm, 12/24/21 2:11:00 EST, Height, kg, 12/24/21 2:11:00 EST, Dosing Weight Start Date: 12/25/21 Status: Ordered Comment on above: 12.5 mg. 12.5 mg every other day. vancomycin 25 mg/ml oral solution (16 sources) Glycopeptide Antibacterial Start: 02-29-20 End: 03-13-20 vitamin B12 (20 sources) Vitamin B12 Start: [...] Refill(s) Start Date: 07/29/23 Status: Ordered vitamin E99-hhnkj acid (20 sources) Start: 09-28-2023 End: 10-07-2023 vitamin G69-cxyml acid Disco ntinued 1 {tbl} PO DAILY September 28, 2023 1:00am October 07, 2023 1:56pm vitamin Start: 09-28-2023 End: 10-07-2023 vitamin W14-oymlp acid Disco ntinued 1 {tbl} PO DAILY September 28, 2023 1:00am October 07, 2023 1:56pm Start: 09-28-2023 End: 10-07-2023 take 1 tablet by mouth once daily vitamin W11-fkius acid Discontinued 1 TABLET PO DAILY September 28, 2023 1:00am October 07, 2023 1:56pm Start: 09-28-2023 End: 10-07-2023 take 1 tablet by mouth once daily vitamin A65-hwyij acid Discontinued 1 TABLET PO DAILY September 28, 2023 12:00am October 07, 2023 12:56pm Start: 09-28-2023 take 1 tablet by maida th once daily vitamin P60-zhtqr acid Active 1 TABLET PO DAILY September 28, 2023 12:00am Start: 09-28-2023 vitamin B12-fo lic acid Active PO September 28, 2023 12:00am (20 sources) Start: 05-29-2025 End: 06-02-2025 Start: 04-19-2025 Start: 02-13-2025 Start: 08-01-2024 End: 11-28-2024 Start: 06-13-2024 End: 01-18-2025 Start: 06-13-2024 End: 11-23-2024 Start: 09-28-2023 End: 02-21-2024 Start: 09-28-2023 End: 10-07-2023 Start: 09-28-2023 End: 10-07-2023 Start: 11-18-2014 End: 06-13-2024 Problems Active Problems Problem Classification Problem Date Documented Date Episodic/Chronic Abdominal pain (20 sources) Inguinal pain; Translations: [Chronic abdominal pain] Onset: 3 08-27-2023 Episodic Comment on above: over bladder area Acute and unspecified renal failure (16 sources) Acute renal failure syndrome; Translations: [Acute [...] Chronic Coronary atherosclerosis and other heart disease (18 sources) Stented coronary artery; Translations: [Presence of coronary angioplasty implant and graft] 06-13-2024 Episodic Deficiency and other anemia (2 sources) Iron deficiency anemia secondary to blood loss (chronic); Translations: [Iron deficiency anemia secondary to blood loss (chronic)] Onset: 5 Chronic Deficiency and other anemia (20 sources) Anemia; Translations: [Anemia, unspecified] Onset: 2 Episodic Deficiency and other anemia (20 sources) Chronic anemia; Translations: [Anemia, unspecified] 04-19-2025 [...] 2 07-11-2019 Chronic Fluid and electrolyte disorders (13 sources) Hyperosmolality with hypernatremia; Translations: [Hyperosmolality and [...] [Hypertensive heart failure] 04-29-2023 Chronic Intestinal infection (16 sources) Clostridium difficile colitis; Translations: [Enterocolitis due to Clostridium difficile, not specified as recurrent] 02-29-2024 Episodic Malaise and fatigue (20 sources) Asthenia; Translations: [Weakness] Onset: 2 Episodic Mood disorders (20 sources) Seasonal affective disorder; Translations: [Severe major depression] 11-02-2022 Chronic Nausea and vomiting (5 sources) Nausea and vomiting; Translations: [Nausea with vomiting, unspecified] 05-22-2025 Episodic Nutritional deficiencies (20 sources) Vitamin D deficiency; Translations: [Vitamin D deficiency, unspecified] 10-03-2019 Chronic Nutritional deficiencies (20 sources) Calcium deficiency; Translations: [Dietary calcium deficiency] [...] muscle] 10-07-2023 Episodic Other connective tissue disease (15 sources) Cramp in lower limb; Translations: [Cramp and spasm] 02-29-2024 Episodic Other connective tissue disease (1 source) Cramp and spasm; Translations: [Cramp of limb] 03-15-2024 Episodic Other diseases of bladder and urethra (20 sources) Overactive bladder; Translations: [Overactive bladder] 10-01-2023 Chronic Other diseases of bladder and urethra (5 sources) Overactive bladder; Translations: [Hypertonicity of bladder] 10-07-2023 Chronic Other disorders of stomach and duodenum (2 sources) Stenosis of duodenum; Translations: [Obstruction of duodenum] 06-07-2025 Chronic Other disorders of stomach and duodenum (1 source) Obstruction of duodenum; Translations: [Obstruction of duodenum] Onset: 5 Chronic Other endocrine disorders (12 sources) 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 Other gastrointestinal disorders (20 sources) Irritable bowel syndrome; Translations: [Irritable bowel syndrome without diarrhea] 04-20-2025 Chronic Other gastrointestinal disorders (1 source) Irritable bowel syndrome without diarrhea; Translations: [Irritable bowel syndrome, unspecified] Onset: 5 Chronic Other gastrointestinal disorders (20 sources) Constipation; Translations: [Constipation, unspecified] 07-29-2023 Episodic Other gastrointestinal disorders (20 sources) Chronic constipation; Translations: [Other constipation] 02-13-2025 Episodic Other gastrointestinal disorders (14 sources) History of ischemic colitis; Translations: [Personal [...] Other hereditary and degenerative nervous system conditions (2 sources) Essential tremor; Translations: [Essential tremor] Onset: Chronic Other hereditary and degenerative nervous system conditions (9 sources) Tardive dyskinesia; Translations: [Drug induced subacute dyskinesia] 02-28-2025 Episodic Other hereditary and degenerative nervous system conditions (2 sources) Drug induced subacute dyskinesia; Translations: [Dyskinesia, tardive] Onset: Episodic Other infections; including parasitic (12 sources) Infestation by bed bug 11-27-2022 Episodic Other lower respiratory disease (20 sources) Multiple nodules of lung; Translations: [Other nonspecific abnormal finding of lung field] 04-17-2021 Episodic Other lower respiratory disease (18 sources) Cough; Translations: [Cough] 02-19-2024 Episodic Other lower respiratory disease (2 sources) Hypoxia; Translations: [Hypoxemia] 06-02-2025 Episodic Other lower respiratory disease (1 source) Shortness of breath; Translations: [Shortness of breath] Onset: Episodic Other lower respiratory disease (1 source) Dyspnea, unspecified; Translations: [Dyspnea, unspecified] Onset: 5 Episodic Other nervous system disorders (2 sources) Parkinsonism due to drug; 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 Other nervous system disorders (4 sources) Finding of hand region; Translations: [Tremor, unspecified] Episodic Other nervous system disorders (17 sources) Tremor 11-02-2022 Episodic Other nervous system disorders (16 sources) Abnormal gait 11-27-2022 Episodic Other non-traumatic joint disorders (20 sources) [...] 4 04-29-2023 Chronic Peripheral and visceral atherosclerosis (16 sources) Occlusion of superior mesenteric artery; Translations: [Acute infarction of intestine, part and extent unspecified] 09-14-2024 Episodic Pneumonia (except that caused by tuberculosis or sexually transmitted disease) (4 sources) Pneumonia; Translations: [Pneumonia, unspecified organism] Onset: 5 06-02-2025 Episodic Residual codes; unclassified (16 sources) Chill [...] dependence, cigarettes, uncomplicated] Chronic Superficial injury; contusion (14 sources) Contusion of hip; Translations: [Contusion of [...] pain; Translations: [Other low back pain] Onset: Urinary tract infections (5 sources) Urinary tract infectious disease; Translations: [Urinary [...] vertigo, unspecified ear] Onset: 01-14-2010 01-14-2010 Episodic Noninfectious gastroenteritis (20 sources) Colitis; Translations: [Noninfective gastroenteritis and colitis, unspecified] Onset: 07-12-2024 02-21-2024 Episodic Other and unspecified benign neoplasm (20 sources) History of polyp of colon; Translations: [Personal history of colonic polyps] Onset: 02-21-2015 Resolved: 02-21-2015 Episodic Other injuries and conditions due to external causes (1 source) Encounter for examination and observation following other accident; Translations: [Encounter for examination and observation following other accident] Onset: 03-14-2025 Episodic Other lower respiratory disease (20 sources) Dyspnea; Translations: [Other forms of dyspnea] Onset: 12-13-2024 12-13-2024 Episodic Other lower respiratory disease (1 source) Solitary pulmonary nodule; Translations: [Solitary pulmonary nodule] Onset: 07-21-2024 Episodic Other lower respiratory disease (1 source) Other forms of dyspnea; Translations: [Other forms of dyspnea] Onset: 12-13-2024 Episodic Other nervous system disorders (1 source) Other abnormalities of gait and mobility; Translations: [Other abnormalities of gait and mobility] Onset: 03-28-2025 Episodic Other screening for suspected conditions (not mental disorders or infectious disease) (20 sources) Partial thromboplastin time increased; Translations: [Abnormal coagulation profile] Onset: 08-01-2024 08-01-2024 Episodic Pleurisy; pneumothorax; pulmonary collapse (1 source) Interstitial emphysema; Translations: [Interstitial emphysema] Onset: 08-13-2024 Episodic Syncope (17 sources) Syncope and collapse; Translations: [Syncope and collapse] Onset: 12-04-2024 11-28-2024 Episodic Results Test Name Value Interpretation Reference Range Facility [facility] 06-29-2025 [facility] Office Visit (NRMDN) MANSI CARO ([id number]) 1955 F Date Time Provider Department 06/29/25 11:00 [address] 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 Caro for follow-up today. As you know she is a 70 year old right-handed female with a history of left hand tremor since 2021. She is seen with her . Subjective Previous Plan- 02/27/2025 Visit: - Start taking Ingrezza 40 mg daily for mouth movements; prescription sent to [facility]. Once this is controlled [...] today. She was in the hospital in [place] for pneumonia in February. Looking into long [...] Jose MARIN Current Outpatient Medications Medication Sig ondansetron [...] (LASIX) 20 mg tablet as needed. traZODone (more content not included)... Normal [facility] 06-29-2025 [facility] Telephone ([facility]) MANSI CARO ([id number]) 1955 F Date Time Provider Department 06/29/25 LEONEL HURTADO [facility] During your visit today, we recorded the following information about you: Lizet Alfonso RN 06/29/2025 3:13 PM Signed Did the patient have confirmed or presumed COVID-19 infection after December 2019 and are continuing to have symptoms for at least 90 days (antibody testing NOT accepted): Yes Date of positive test and/or presumed infection(s): end 2019/beginning 2020 twice in 2021 (asked to bring dates) Type of test (home test or PCR): home, home, home, home With which COVID infection(s) did your long COVID symptoms begin: 2020 COVID vaccine type and dates (if not already on file): on file Multiple episodes of pneumonia , no smell/taste, cognitive issues, weakness, lightheaded, dizziness, stomach issues. Is on home O2. Recently hospitalized for ischemic colitis We have a few questions about any ongoing symptoms to help prepare you and your provider for your visit. 2. Is the patient seeing us for taste/smell changes? Yes 2A. Are taste/smell changes a result of COVID infection? Meaning that symptoms started with COVID; not prior to COVID or after COVID for different reason. Yes 2B. Has the patient seen ENT for the altered taste and smell and have documentation stating taste/smell changes are a result of COVID infection? No 2C. Are taste/smell changes the patient's ONLY long-COVID complaints? Yes 3. Is patient traveling far (1 hour+) or coming from another state*: No 4. Please verify the following are on file in patient's chart, and enter if not found - medication list Yes - allergies Yes - preferred pharmacy Yes - PCP Yes 5. Please inform patient of the below information if they have not been sent Res[facility]et reminder: [facility] functions as a referral service. You will have an initial visit as well as follow-up virtual visit(s) as determined by your provider in which all [facility] testing, imaging, and labs will be discussed. From there on it is expected that you continue to follow up with your PCP and the specialist(s) established through this program. 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 COVID [facility] intake team is not able to assist with disability requests, including work restrictions or clearances as we do not do active treatment and management of long-COVID symptoms, and are not actively involved in long-term care after your scheduled visits. Your primary care provider and the consulted specialists we discuss during our visit(s) are better suited for assisting with disability requests. Those providers are welcome use our office note and testing to help support their plans of care. Patients will be expected to have labs, testing, and consults done through [facility]; we cannot fax orders to outside facilities, and do not have access to outside providers. Please be prepared that you may need to travel to [place] multiple times to get all testing done and see the consulted specialist(s). Please arrive 15 minutes early to your appointment. If you are more than 10 minutes late to your appointment you may be asked to reschedule. One week prior to your appointment you should pre-check in via [employer] to complete questionnaires that will provide valuable information to your provider to aid in your visit. You may receive a telephone call to remind you if we see they have not been completed in advance of your visit. If you have outside testing you would like to be entered into your chart, please fax it to [phone]. Records brought in same day of visit may not be reviewed until after the visit due to time constraints. *[facility] Current [facility] states are [place], [place], [place], and [place] as of 03/2025. This means patients can only be seen in-person for consults AND follow-ups due to state laws. Lizet Alfonso RN 06/29/2025 3:13 PM Signed Addended by: LIZET ALFONSO on: 06/29/2025 03:13 PM Modules accepted: Orders Allergies As of Date: 06/29/2025 Noted Allergy Reaction LIPITOR (ATORVASTATIN CALCIUM) 04/03/2010 Comments: Heart racing; 07/04/10 patient states that she had started a lot of medication at this time and the she did not have a true allergic reaction and is willing to rechallenge HERVE MARIN Date Reviewed: 06/29/2025 Reviewed by: Lizet Alfonso, TANIA - Fully Assessed Reason for Visit: Intake [[id number]] Cmt: [facility] pre-visit phone call Prescriptions as of 06/29/2025 - escitalopram oxalate (LEXAPRO) 5 mg tablet Take 5 mg by mouth once daily. - fluticasone (FLONASE ALLERGY RELIEF) 50 mcg/actuation nasal spray Use 1 spray in each nostril two times a day. - ondansetron orally disintegrating (ZOFRAN ODT) 4 mg disintegrating tablet Take 4 mg by mouth as needed for nausea/vomiting. - albuterol edmond (more content not included)... Normal [facility] 36on 06-16-2025 36 S: Patient's home he myra Potts [facility], [...] weeks) Protocols used: Abdominal Pain - ADULT-AH Normal [facility] Absolute lymphocyte countOrd ered By: Ganesh Kiran on 06-11-2025 Lymphocytes Auto (Unsp spec) [#/Vol] 0.89 10*3/uL 0.83-4.51 [facility] Anion gap in Serum or Plasma Ordered By: Ganesh Kiran on 06-11-2025 Anion gap [Moles/Vol] 8 mmol/L 5-15 [facility] Automated lymphocyte count a s percentage of total leukocytesOrdered By: Ganesh Kiran on 06-11-2025 Lymphocytes/100 WBC Auto (Unsp spec) 23.2 % 19-41 [facility] BUN/creatinine ratioOrdered By: Ganesh Kiran on 06-11-2025 Urea nitrogen/Creatinine [Mass ratio] 13.8 mg/mg 10- [facility] Basic Metabolic Profile (BMP )on 06-11-2025 BUN/CRE 13.8 RATIO Normal - [facility] Comment on above: Performed By: #### L 100.0100, L500.2500 ####[facility] [address] [place], [address] Calcium [Mass/Vol] 8.5 mg/dL Normal 7.6-11.0 [facility] Comment on above: Performed By: #### L 100.0100, L500.2500 ####[facility] [address] [place], [address] Chloride [Moles/Vol] 106 mmol/L Normal 98-108 [facility] Comment on above: Performed By: #### L 100.0100, L500.2500 ####[facility] [address] [place], [address] CO2 [Moles/Vol] 25.8 mmol/L Normal 21.0-32.0 [facility] Comment on above: Performed By: #### L 100.0100, L500.2500 ####[facility] [address] [place], [address] Creatinine [Mass/Vol] 0.97 mg/dL Normal 0.70-1.20 [facility] Comment on above: Performed By: #### L 100.0100, L500.2500 ####[facility] [address] [place], [address] ECRCL 48.17 ml/min Low 50-250 [facility] Comment on above: Performed By: #### L 100.0100, L500.2500 ####[facility] [address] [place], [address] GAP 8 Normal 5-15 [facility] Comment on above: Performed By: #### L 100.0100, L500.2500 ####[facility] [address] [place], [address] GFR/1.73 sq M.predicted among non-blacks MDRD (S/P/Bld) [Vol rate/Area] 62 mL/min/{1.73_m2} Normal >60 [facility] Comment on above: Result Comment: mL/m in/1.73m2 CKD-EPI Creatinine Equation (2020) Performed By: #### L 100.0100, L500.2500 ####[facility] [address] [place], [address] Glucose [Mass/Vol] 126 mg/dL High 70-99 [facility] Comment on above: Performed By: #### L 100.0100, L500.2500 ####[facility] [address] [place], [address] Potassium [Moles/Vol] 4.0 mmol/L Normal 3.3-5.1 [facility] Comment on above: Performed By: #### L 100.0100, L500.2500 ####[facility] [address] [place], [address] Sodium [Moles/Vol] 140 mmol/L Normal 133-145 [facility] Comment on above: Performed By: #### L 100.0100, L500.2500 ####[facility] [address] [place], [address] Urea nitrogen [Mass/Vol] 13 mg/dL Normal 4-19 [facility] Comment on above: Performed By: #### L 100.0100, L500.2500 ####[facility] [address] [place], [address] Basophil percentageOrdered B y: Ganesh Magno on 06-11-2025 Basophils/100 WBC (Bld) 0.3 % 0-1 [facility] CBC W/Diff, Automatedon 05-23 Absolute Lymph 0.89 X10 3/uL Normal 0.83-4.51 [facility] Comment on above: Performed By: #### L 100.0100, L500.2500 ####[facility] [address] [place], [address] Absolute Neut 2.3 X10 3/uL Normal 2.0-7.7 [facility] Comment on above: Performed By: #### L 100.0100, L500.2500 ####[facility] [address] [place], [address] Basophils/100 WBC (Bld) 0.3 % Normal 0-1 [facility] Comment on above: Performed By: #### L 100.0100, L500.2500 ####[facility] [address] [place], [address] Eosinophils/100 WBC (Bld) 4.7 % Normal 0-5 [facility] Comment on above: Performed By: #### L 100.0100, L500.2500 ####[facility] [address] [place], [address] Erythrocyte distribution width (RBC) [Ratio] 13.6 % Normal 11.6-14.6 [facility] Comment on above: Performed By: #### L 100.0100, L500.2500 ####[facility] [address] [place], [address] Hematocrit (Bld) [Volume fraction] 31.4 % Low 37-47 [facility] Comment on above: Performed By: #### L 100.0100, L500.2500 ####[facility] [address] [place], [address] Hemoglobin (Bld) [Mass/Vol] 9.8 g/dL Low 12.0-15.0 [facility] Comment on above: Performed By: #### L 100.0100, L500.2500 ####[facility] [address] [place], [address] IG% 0.300 Normal 0.0-0.9 [facility] Comment on above: Result Comment: IG% - Immature Granulocytes (promyelocytes, myelocytes andmetamyelocytes) > 1% indicates that a LEFT SHIFT is Present. Performed By: #### L 100.0100, L500.2500 ####[facility] [address] [place], [address] Lymphocytes/100 WBC (Bld) 23.2 % Normal 19-41 [facility] Comment on above: Performed By: #### L 100.0100, L500.2500 ####[facility] [address] [place], [address] MCH (RBC) [Entitic mass] 30.1 pg Normal 27.0-32.0 [facility] Comment on above: Performed By: #### L 100.0100, L500.2500 ####[facility] [address] [place], [address] MCHC (RBC) [Mass/Vol] 31.2 g/dL Low 32-36 [facility] Comment on above: Performed By: #### L 100.0100, L500.2500 ####[facility] [address] [place], [address] MCV (RBC) [Entitic vol] 96.3 fL Normal 81-99 [facility] Comment on above: Performed By: #### L 100.0100, L500.2500 ####[facility] [address] [place], [address] Monocytes/100 WBC (Bld) 11.5 % High 0-10 [facility] Comment on above: Performed By: #### L 100.0100, L500.2500 ####[facility] [address] [place], [address] Neutrophils/100 WBC (Bld) 60.0 % Normal 47-70 [facility] Comment on above: Performed By: #### L 100.0100, L500.2500 ####[facility] [address] [place], [address] Nucleated RBC (Bld) [#/Vol] 0 10*3/uL Normal 0-5 [facility] Comment on above: Performed By: #### L 100.0100, L500.2500 ####[facility] [address] [place], [address] Platelet mean volume (Bld) [Entitic vol] 10.1 fL Normal 6.2-12.0 [facility] Comment on above: Performed By: #### L 100.0100, L500.2500 ####[facility] [address] [place], [address] Platelets (Bld) [#/Vol] 186 10*3/uL Normal 150-450 [facility] Comment on above: Performed By: #### L 100.0100, L500.2500 ####[facility] [address] [place], [address] RBC (Bld) [#/Vol] 3.26 10*6/uL Low 4.2-5.4 [facility] Comment on above: Performed By: #### L 100.0100, L500.2500 ####[facility] [address] [place], [address] RDW SD 48.7 fl High 35.1-43.9 [facility] Comment on above: Performed By: #### L 100.0100, L500.2500 ####[facility] [address] [place], [address] WBC (Bld) [#/Vol] 3.8 10*3/uL Low 4.4-11.0 [facility] Comment on above: Performed By: #### L 100.0100, L500.2500 ####[facility] [address] [place], [address] Carbon dioxide, total [Moles /volume] in Central venous bloodOrdered By: Ganesh Kiran on 06-11-2025 CO2 [Moles/Vol] 25.8 mmol/L 21.0-32.0 [facility] Chloride assayOrdered By: Rick Kiran on 06-11-2025 Chloride [Moles/Vol] 106 mmol/L 98-108 [facility] Discharge Instructionon 05-23 Discharge Instruction Normal [facility] Eosinophil percentageOrdered By: Ganesh Kiran on 06-11-2025 Eosinophils/100 WBC (Bld) 4.7 % 0-5 [facility] Erythrocyte distribution wid th ratioOrdered By: Ganesh iKran on 06-11-2025 Erythrocyte distribution width (RBC) [Ratio] 13.6 % 11.6-14.6 [facility] Erythrocyte distribution wid th standard deviationOrdered By: Ganesh Kiran on 06-11-2025 Erythrocyte distribution width (RBC) [Ratio] 48.7 fl High 35.1-43.9 [facility] Glomerular filtration rate ( GFR) estimation/1.73 sq m using serum, plasma, or whole bOrdered By: Ganesh Kiran on 06-11-2025 GFR/1.73 sq M.predicted among non-blacks MDRD (S/P/Bld) [Vol rate/Area] 62 mL/min/{1.73_m2} >60 [facility] Hematocrit Auto (Bld) [Volum e fraction]Ordered By: Ganesh Kiran on 06-11-2025 Hematocrit (Bld) [Volume fraction] 31.4 % Low 37-47 [facility] Hemoglobin measurementOrdere d By: Ganesh Kiran on 06-11-2025 Hemoglobin (Bld) [Mass/Vol] 9.8 g/dL Low 12.0-15.0 [facility] Immature granulocytes/100 WB C Auto (Bld)Ordered By: Ganesh Kiran on 06-11-2025 Immature granulocytes/100 WBC (Bld) 0.300 % 0.0-0.9 [facility] MCV (mean corpuscular volume ) determinationOrdered By: Ganesh Kiran on 06-11-2025 MCV (RBC) [Entitic vol] 96.3 fL 81-99 [facility] Mean corpuscular hemoglobin (MCH) determinationOrdered By: Ganesh Kiran on 06-11-2025 MCH (RBC) [Entitic mass] 30.1 pg 27.0-32.0 [facility] Monocyte percentageOrdered B y: Ganesh Kiran on 06-11-2025 Monocytes/100 WBC (Bld) 11.5 % High 0-10 [facility] Neutrophil percentageOrdered By: Ganesh Kiran on 06-11-2025 Neutrophils/100 WBC (Bld) 60.0 % 47-70 [facility] Platelet countOrdered By: Rick Kiran on 06-11-2025 Platelets (Bld) [#/Vol] 186 10*3/uL 150-450 [facility] Potassium measurement (mass/ volume)Ordered By: Ganesh Kiran on 06-11-2025 Potassium (Unsp spec) [Mass/Vol] 4.0 mmol/L 3.3-5.1 [facility] RBC Auto (Bld) [#/Vol]Ordere d By: Ganesh Kiran on 06-11-2025 RBC (Bld) [#/Vol] 3.26 10*6/uL Low 4.2-5.4 [facility] Serum creatinine measurement (mass/volume)Ordered By: Ganesh Kiran on 06-11-2025 Creatinine [Mass/Vol] 0.97 mg/dL 0.70-1.20 [facility] Serum glucose measurement (m ass/volume)Ordered By: Ganesh Kiran on 06-11-2025 Glucose [Mass/Vol] 126 mg/dL High 70-99 [facility] Serum or plasma calcium loco urement (mass/volume)Ordered By: Ganesh Kiran on 06-11-2025 Calcium [Mass/Vol] 8.5 mg/dL 7.6-11.0 [facility] Serum or plasma urea nitroge n measurement (mass/volume)Ordered By: Ganesh Kiran on 06-11-2025 Urea nitrogen [Mass/Vol] 13 mg/dL 4-19 [facility] Sodium levelOrdered By: Pari Kiran on 06-11-2025 Sodium [Moles/Vol] 140 mmol/L 133-145 [facility] White blood cell (WBC) count Ordered By: Ganesh Kiran on 06-11-2025 WBC (Bld) [#/Vol] 3.8 10*3/uL Low 4.4-11.0 [facility] 36on 06-09-2025 36 Name of caller Mirlande Contact phone number: [phone] Relationship to Patient: spouse/SO Provider: Dr. Marci Lopez Practice: [facility] Chief Complaint/Reason for Call: The patient , Song, states his might be released from [facility] on 06-09-2025. Also, the covering doctor at the hospital states the patient might have psychiatrist issues with 8 other things wrong with her. The patient will be discharged to [facility] in [place]. Please call the patient at [phone] to advise Best time of day caller can be reached: Anytime Patient advised that office/PCP has 24-48 business hours to return their call: Yes Normal [facility] Basic Metabolic Profile (BMP )on 06-08-2025 BUN/CRE 13.6 RATIO Normal 10-20 [facility] Comment on above: Performed By: #### L 500.2500, L100.0100 ####[facility] [address] [place], [address] Calcium [Mass/Vol] 8.6 mg/dL Normal 7.6-11.0 [facility] Comment on above: Performed By: #### L 500.2500, L100.0100 ####[facility] [address] [place], [address] Chloride [Moles/Vol] 102 mmol/L Normal 98-108 [facility] Comment on above: Performed By: #### L 500.2500, L100.0100 ####[facility] [address] [place], [address] CO2 [Moles/Vol] 25.9 mmol/L Normal 21.0-32.0 [facility] Comment on above: Performed By: #### L 500.2500, L100.0100 ####[facility] [address] [place], [address] Creatinine [Mass/Vol] 0.98 mg/dL Normal 0.70-1.20 [facility] Comment on above: Performed By: #### L 500.2500, L100.0100 ####[facility] [address] [place], [address] ECRCL 47.68 ml/min Low 50-250 [facility] Comment on above: Performed By: #### L 500.2500, L100.0100 ####[facility] [address] [place], [address] GAP 9 Normal 5-15 [facility] Comment on above: Performed By: #### L 500.2500, L100.0100 ####[facility] [address] [place], [address] GFR/1.73 sq M.predicted among non-blacks MDRD (S/P/Bld) [Vol rate/Area] 61 mL/min/{1.73_m2} Normal >60 [facility] Comment on above: Result Comment: mL/m in/1.73m2 CKD-EPI Creatinine Equation (2020) Performed By: #### L 500.2500, L100.0100 ####[facility] [address] [place], [address] Glucose [Mass/Vol] 115 mg/dL High 70-99 [facility] Comment on above: Performed By: #### L 500.2500, L100.0100 ####[facility] [address] [place], [address] Potassium [Moles/Vol] 4.4 mmol/L Normal 3.3-5.1 [facility] Comment on above: Performed By: #### L 500.2500, L100.0100 ####[facility] [address] [place], [address] Sodium [Moles/Vol] 136 mmol/L Normal 133-145 [facility] Comment on above: Performed By: #### L 500.2500, L100.0100 ####[facility] [address] [place], [address] Urea nitrogen [Mass/Vol] 13 mg/dL Normal 4-19 [facility] Comment on above: Performed By: #### L 500.2500, L100.0100 ####[facility] [address] [place], [address] CBC W/Diff, Automatedon - Absolute Lymph 0.95 X10 3/uL Normal 0.83-4.51 [facility] Comment on above: Performed By: #### L 500.2500, L100.0100 ####[facility] [address] [place], [address] Absolute Neut 2.2 X10 3/uL Normal 2.0-7.7 [facility] Comment on above: Performed By: #### L 500.2500, L100.0100 ####[facility] [address] [place], [address] Basophils/100 WBC (Bld) 0.3 % Normal 0-1 [facility] Comment on above: Performed By: #### L 500.2500, L100.0100 ####[facility] [address] [place], [address] Eosinophils/100 WBC (Bld) 0.0 % Normal 0-5 [facility] Comment on above: Performed By: #### L 500.2500, L100.0100 ####[facility] [address] [place], [address] Erythrocyte distribution width (RBC) [Ratio] 13.3 % Normal 11.6-14.6 [facility] Comment on above: Performed By: #### L 500.2500, L100.0100 ####[facility] [address] [place], [address] Hematocrit (Bld) [Volume fraction] 30.5 % Low 37-47 [facility] Comment on above: Performed By: #### L 500.2500, L100.0100 ####[facility] [address] [place], [address] Hemoglobin (Bld) [Mass/Vol] 10.0 g/dL Low 12.0-15.0 [facility] Comment on above: Performed By: #### L 500.2500, L100.0100 ####[facility] [address] [place], [address] IG% 0.300 Normal 0.0-0.9 [facility] Comment on above: Result Comment: IG% - Immature Granulocytes (promyelocytes, myelocytes andmetamyelocytes) > 1% indicates that a LEFT SHIFT is Present. Performed By: #### L 500.2500, L100.0100 ####[facility] [address] [place], [address] Lymphocytes/100 WBC (Bld) 26.4 % Normal 19-41 [facility] Comment on above: Performed By: #### L 500.2500, L100.0100 ####[facility] [address] [place], [address] MCH (RBC) [Entitic mass] 30.5 pg Normal 27.0-32.0 [facility] Comment on above: Performed By: #### L 500.2500, L100.0100 ####[facility] [address] [place], [address] MCHC (RBC) [Mass/Vol] 32.8 g/dL Normal 32-36 [facility] Comment on above: Performed By: #### L 500.2500, L100.0100 ####[facility] [address] [place], [address] MCV (RBC) [Entitic vol] 93.0 fL Normal 81-99 [facility] Comment on above: Performed By: #### L 500.2500, L100.0100 ####[facility] [address] [place], [address] Monocytes/100 WBC (Bld) 11.9 % High 0-10 [facility] Comment on above: Performed By: #### L 500.2500, L100.0100 ####[facility] [address] [place], [address] Neutrophils/100 WBC (Bld) 61.1 % Normal 47-70 [facility] Comment on above: Performed By: #### L 500.2500, L100.0100 ####[facility] [address] [place], [address] Nucleated RBC (Bld) [#/Vol] 0 10*3/uL Normal 0-5 [facility] Comment on above: Performed By: #### L 500.2500, L100.0100 ####[facility] [address] [place], [address] Platelet mean volume (Bld) [Entitic vol] 10.3 fL Normal 6.2-12.0 [facility] Comment on above: Performed By: #### L 500.2500, L100.0100 ####[facility] [address] [place], [address] Platelets (Bld) [#/Vol] 232 10*3/uL Normal 150-450 [facility] Comment on above: Performed By: #### L 500.2500, L100.0100 ####[facility] [address] [place], [address] RBC (Bld) [#/Vol] 3.28 10*6/uL Low 4.2-5.4 [facility] Comment on above: Performed By: #### L 500.2500, L100.0100 ####[facility] [address] [place], [address] RDW SD 45.3 fl High 35.1-43.9 [facility] Comment on above: Performed By: #### L 500.2500, L100.0100 ####[facility] [address] [place], [address] WBC (Bld) [#/Vol] 3.6 10*3/uL Low 4.4-11.0 [facility] Comment on above: Performed By: #### L 500.2500, L100.0100 ####[facility] [address] [place], [address] Celiac Disease Profileon ENDOMYSIAL IGA Negative Normal Negative [facility] Comment on above: Performed By: #### L 3410.2400 ####[facility] [address] [place], [place], [address] IMMUNOGLOB A QN 350 mg/dL Normal 64-422 [facility] Comment on above: Result Comment: Perf ormed at: [facility] [place] [id number] Director: Bulmaro Nesbitt PhD, Phone: [phone] Performed By: #### L 3410.2400 ####[facility] [address] [place], [place], [id number] tTG IGA <2 Normal 0-3 [facility] Comment on above: Result Comment: Nega tive 0 - 3 Weak Positive 4 - 10 Positive >10 Tissue Transglutaminase (tTG) has been identified as the endomysial antigen. Studies have demonstr- ated that endomysial IgA antibodies have over 99% specificity for gluten sensitive enteropathy. Performed By: #### L 3410.2400 ####[facility] [address] [place], [place], [address] Bedside Glucoseon 06-07-2025 FINGERSTICK GLU 101 mg/dL Normal 74-106 [facility] Comment on above: Result Comment: TORRES FRANKLIN OF PATIENT CARE PER NURSING PROTOCOL Performed By: #### L 501.080 ####[facility] [address] [place], [place], [address] Culture, Blood (WB)on 2024 CUB Blood cultures x2, f rom two different sites No growth in 5 days. Normal [facility] Comment on above: Performed By: #### M 200.1000 ####[facility] [address] [place], [place], [id number] EGD Reporton 06-07-2025 EGD Report Normal [facility] Gl[facility] deOrdered By: Ganesh Kiran on 06-07-2025 Glucose [Mass/Vol] 101 mg/dL 74-106 [facility] MR/CON.PCM.GIon 06-07-2025 MR/CON.PCM.GI Normal [facility] MR/POSTOP.ANEon 06-07-2025 MR/POSTOP.ANE Normal [facility] MR/DHPCYAHM2en 06-07-2025 MR/POSTOPAN2 Normal [facility] Discharge Instructionon 05-22 Discharge Instruction Normal [facility] Serum or plasma IgA measurem ent (mass/volume)Ordered By: Ben Johnson on 06-05-2025 IgA [Mass/Vol] 350 mg/dL 64-422 [facility] Serum tissue transglutaminas e (tTG) IgA antibody assay (units/volume)Ordered By: Ben Johnson on 06-05-2025 tTG IgA Qn (S) <2 U/mL 0-3 [facility] Bedside Glucoseon 06-04-2025 FINGERSTICK GLU 140 mg/dL High 74-106 [facility] Comment on above: Result Comment: TORRES FRANKLIN OF PATIENT CARE PER NURSING PROTOCOL Performed By: #### L 501.080 ####[facility] [address] [place], [place], [id number] CBC W/Diff, Automatedon 05-22 Absolute Lymph 1.59 X10 3/uL Normal 0.83-4.51 [facility] Comment on above: Performed By: #### L 100.0100 ####[facility] [address] [place], [place], [phone] Absolute Neut 4.1 X10 3/uL Normal 2.0-7.7 [facility] Comment on above: Performed By: #### L 100.0100 ####[facility] [address] [place], [address] Basophils/100 WBC (Bld) 0.5 % Normal 0-1 [facility] Comment on above: Performed By: #### L 100.0100 ####[facility] [address] [place], [address] Eosinophils/100 WBC (Bld) 1.3 % Normal 0-5 [facility] Comment on above: Performed By: #### L 100.0100 ####[facility] [address] [place], [address] Erythrocyte distribution width (RBC) [Ratio] 13.6 % Normal 11.6-14.6 [facility] Comment on above: Performed By: #### L 100.0100 ####[facility] [address] [place], [address] Hematocrit (Bld) [Volume fraction] 31.4 % Low 37-47 [facility] Comment on above: Performed By: #### L 100.0100 ####[facility] [address] [place], [address] Hemoglobin (Bld) [Mass/Vol] 10.2 g/dL Low 12.0-15.0 [facility] Comment on above: Performed By: #### L 100.0100 ####[facility] [address] [place], [address] IG% 0.200 Normal 0.0-0.9 [facility] Comment on above: Result Comment: IG% - Immature Granulocytes (promyelocytes, myelocytes andmetamyelocytes) > 1% indicates that a LEFT SHIFT is Present. Performed By: #### L 100.0100 ####[facility] [address] [place], [address] Lymphocytes/100 WBC (Bld) 25.1 % Normal 19-41 [facility] Comment on above: Performed By: #### L 100.0100 ####[facility] [address] [place], [address] MCH (RBC) [Entitic mass] 30.9 pg Normal 27.0-32.0 [facility] Comment on above: Performed By: #### L 100.0100 ####[facility] [address] [place], [address] MCHC (RBC) [Mass/Vol] 32.5 g/dL Normal 32-36 [facility] Comment on above: Performed By: #### L 100.0100 ####[facility] [address] [place], [address] MCV (RBC) [Entitic vol] 95.2 fL Normal 81-99 [facility] Comment on above: Performed By: #### L 100.0100 ####[facility] [address] [place], [address] Monocytes/100 WBC (Bld) 8.2 % Normal 0-10 [facility] Comment on above: Performed By: #### L 100.0100 ####[facility] [address] [place], [address] Neutrophils/100 WBC (Bld) 64.7 % Normal 47-70 [facility] Comment on above: Performed By: #### L 100.0100 ####[facility] [address] [place], [address] Nucleated RBC (Bld) [#/Vol] 0 10*3/uL Normal 0-5 [facility] Comment on above: Performed By: #### L 100.0100 ####[facility] [address] [place], [address] Platelet mean volume (Bld) [Entitic vol] 10.2 fL Normal 6.2-12.0 [facility] Comment on above: Performed By: #### L 100.0100 ####[facility] [address] [place], [address] Platelets (Bld) [#/Vol] 232 10*3/uL Normal 150-450 [facility] Comment on above: Performed By: #### L 100.0100 ####[facility] [address] [place], [address] RBC (Bld) [#/Vol] 3.30 10*6/uL Low 4.2-5.4 [facility] Comment on above: Performed By: #### L 100.0100 ####[facility] [address] [place], [address] RDW SD 47.6 fl High 35.1-43.9 [facility] Comment on above: Performed By: #### L 100.0100 ####[facility] [address] [place], [address] WBC (Bld) [#/Vol] 6.3 10*3/uL Normal 4.4-11.0 [facility] Comment on above: Performed By: #### L 100.0100 ####[facility] [address] [place], [address] Electrocardiogram reportOrde red By: Danish Tavarez on 06-04-2025 EKG study [facility] Work Phone: CBC W/Diff, Automatedon 05-22 Absolute Lymph 1.36 X10 3/uL Normal 0.83-4.51 [facility] Comment on above: Performed By: #### L 100.0100 ####[facility] [address] [place], [address] Absolute Neut 4.7 X10 3/uL Normal 2.0-7.7 [facility] Comment on above: Performed By: #### L 100.0100 ####[facility] [address] [place], [address] Basophils/100 WBC (Bld) 0.3 % Normal 0-1 [facility] Comment on above: Performed By: #### L 100.0100 ####[facility] [address] [place], [address] Eosinophils/100 WBC (Bld) 1.6 % Normal 0-5 [facility] Comment on above: Performed By: #### L 100.0100 ####[facility] [address] [place], [address] Erythrocyte distribution width (RBC) [Ratio] 13.6 % Normal 11.6-14.6 [facility] Comment on above: Performed By: #### L 100.0100 ####[facility] [address] [place], [address] Hematocrit (Bld) [Volume fraction] 29.0 % Low 37-47 [facility] Comment on above: Performed By: #### L 100.0100 ####[facility] [address] [place], [address] Hemoglobin (Bld) [Mass/Vol] 9.5 g/dL Low 12.0-15.0 [facility] Comment on above: Performed By: #### L 100.0100 ####[facility] [address] [place], [address] IG% 0.100 Normal 0.0-0.9 [facility] Comment on above: Result Comment: IG% - Immature Granulocytes (promyelocytes, myelocytes andmetamyelocytes) > 1% indicates that a LEFT SHIFT is Present. Performed By: #### L 100.0100 ####[facility] [address] [place], [address] Lymphocytes/100 WBC (Bld) 19.2 % Normal 19-41 [facility] Comment on above: Performed By: #### L 100.0100 ####[facility] [address] [place], [address] MCH (RBC) [Entitic mass] 30.5 pg Normal 27.0-32.0 [facility] Comment on above: Performed By: #### L 100.0100 ####[facility] [address] [place], [address] MCHC (RBC) [Mass/Vol] 32.8 g/dL Normal 32-36 [facility] Comment on above: Performed By: #### L 100.0100 ####[facility] [address] [place], [address] MCV (RBC) [Entitic vol] 93.2 fL Normal 81-99 [facility] Comment on above: Performed By: #### L 100.0100 ####[facility] [address] [place], [address] Monocytes/100 WBC (Bld) 12.4 % High 0-10 [facility] Comment on above: Performed By: #### L 100.0100 ####[facility] [address] [place], [address] Neutrophils/100 WBC (Bld) 66.4 % Normal 47-70 [facility] Comment on above: Performed By: #### L 100.0100 ####[facility] [address] [place], [address] Nucleated RBC (Bld) [#/Vol] 0 10*3/uL Normal 0-5 [facility] Comment on above: Performed By: #### L 100.0100 ####[facility] [address] [place], [address] Platelet mean volume (Bld) [Entitic vol] 10.1 fL Normal 6.2-12.0 [facility] Comment on above: Performed By: #### L 100.0100 ####[facility] [address] [place], [address] Platelets (Bld) [#/Vol] 203 10*3/uL Normal 150-450 [facility] Comment on above: Performed By: #### L 100.0100 ####[facility] [address] [place], [address] RBC (Bld) [#/Vol] 3.11 10*6/uL Low 4.2-5.4 [facility] Comment on above: Performed By: #### L 100.0100 ####[facility] [address] [place], [address] RDW SD 46.3 fl High 35.1-43.9 [facility] Comment on above: Performed By: #### L 100.0100 ####[facility] [address] [place], [address] WBC (Bld) [#/Vol] 7.1 10*3/uL Normal 4.4-11.0 [facility] Comment on above: Performed By: #### L 100.0100 ####[facility] [address] [place], [address] 12 Lead EKGon 06-02-2025 12 Lead EKG Normal [facility] 36on 06-02-2025 36 S: Song called the clinical access center B: He called to report Mansi was admitted to the hospital today A: He wanted to thank Dr. Lopez for her advice. R: She is admitted at [facility]. Patient instructed to call back with worsening symptoms, concerns or questions. Normal [facility] 36 Name of caller reque sting page: Song Phone Number of caller: [phone] Facility requesting page: The patient Spouse Reason for Page: The patient states he is taking the patient to [facility] right now [er Dr. Lopez orders. The patient O2 level this morning was 83 and her temperature is 99.1. Provider paged: Antonio Clay MD Practice Name of paged provider: Morgan Asher Page Placed to #: Secure chat Time Page was sent or provider contacted: 10:35 am Page Content: PAGE: The patient Song, ; PT. Taylor Caro; The patient states he is taking the patient to [facility] right now per Dr. Lopez orders. The patient O2 level this morning was 83 and her temperature is 99.1. Please call the patient to advise. Normal [facility] Anion gap in Serum or Plasma Ordered By: Olds Marilyn on 06-02-2025 Anion gap [Moles/Vol] 11 mmol/L 5-15 [facility] BUN/creatinine ratioOrdered By: Olds Marilyn on 06-02-2025 Urea nitrogen/Creatinine [Mass ratio] 16.6 mg/mg 10-20 [facility] Bilirubin, totalOrdered By: Olds Marilyn on 06-02-2025 Bilirubin [Mass/Vol] 0.27 mg/dL 0.00-1.30 [facility] Blood cultureOrdered By: [facility] Marilyn on 06-02-2025 Bacteria identified Cx Nom (Bld) No growth in 5 days. [facility] Bacteria identified Cx Nom (Bld) No growth in 5 days. [facility] CBC-Complete Blood Cnt No Di ffon 06-02-2025 Erythrocyte distribution width (RBC) [Ratio] 13.4 % Normal 11.6-14.6 [facility] Comment on above: Performed By: #### L 503.7505, L100.0500, L503.6005, L500.4050, L501.2450 ####[facility] [address] [place], [address] Hematocrit (Bld) [Volume fraction] 34.6 % Low 37-47 [facility] Comment on above: Performed By: #### L 503.7505, L100.0500, L503.6005, L500.4050, L501.2450 ####[facility] [address] [place], [address] Hemoglobin (Bld) [Mass/Vol] 11.2 g/dL Low 12.0-15.0 [facility] Comment on above: Performed By: #### L 503.7505, L100.0500, L503.6005, L500.4050, L501.2450 ####[facility] [address] [place], [address] MCH (RBC) [Entitic mass] 30.6 pg Normal 27.0-32.0 [facility] Comment on above: Performed By: #### L 503.7505, L100.0500, L503.6005, L500.4050, L501.2450 ####[facility] [address] [place], [address] MCHC (RBC) [Mass/Vol] 32.4 g/dL Normal 32-36 [facility] Comment on above: Performed By: #### L 503.7505, L100.0500, L503.6005, L500.4050, L501.2450 ####[facility] [address] [place], [address] MCV (RBC) [Entitic vol] 94.5 fL Normal 81-99 [facility] Comment on above: Performed By: #### L 503.7505, L100.0500, L503.6005, L500.4050, L501.2450 ####[facility] [address] [place], [address] Platelet mean volume (Bld) [Entitic vol] 10.0 fL Normal 6.2-12.0 [facility] Comment on above: Performed By: #### L 503.7505, L100.0500, L503.6005, L500.4050, L501.2450 ####[facility] [address] [place], [address] Platelets (Bld) [#/Vol] 230 10*3/uL Normal 150-450 [facility] Comment on above: Performed By: #### L 503.7505, L100.0500, L503.6005, L500.4050, L501.2450 ####[facility] [address] [place], [address] RBC (Bld) [#/Vol] 3.66 10*6/uL Low 4.2-5.4 [facility] Comment on above: Performed By: #### L 503.7505, L100.0500, L503.6005, L500.4050, L501.2450 ####[facility] [address] [place], [address] RDW SD 46.7 fl High 35.1-43.9 [facility] Comment on above: Performed By: #### L 503.7505, L100.0500, L503.6005, L500.4050, L501.2450 ####[facility] [address] [place], [address] WBC (Bld) [#/Vol] 9.0 10*3/uL Normal 4.4-11.0 [facility] Comment on above: Performed By: #### L 503.7505, L100.0500, L503.6005, L500.4050, L501.2450 ####[facility] [address] [place], [address] CTA Chst, Abd, Pel W and/or WOon 06-02-2025 CTA Chst, Abd, Pel W and/or WO Normal [facility] Carbon dioxide, total [Moles /volume] in Central venous bloodOrdered By: Bossman Sanders on 06-02-2025 CO2 [Moles/Vol] 24.0 mmol/L 21.0-32.0 [facility] Chloride assayOrdered By: Sabino Sanders on 06-02-2025 Chloride [Moles/Vol] 102 mmol/L 98-108 [facility] Comprehensive Metabolic Prof ilon 06-02-2025 Albumin [Mass/Vol] 3.1 g/dL Low 3.4-4.8 [facility] Comment on above: Performed By: #### L 503.7505, L100.0500, L503.6005, L500.4050, L501.2450 ####[facility] [address] [place], [address] Albumin/Globulin [Mass ratio] 0.8 {ratio} Low 0.9-2.4 [facility] Comment on above: Performed By: #### L 503.7505, L100.0500, L503.6005, L500.4050, L501.2450 ####[facility] [address] [place], [address] ALK PHOS 70 U/L Normal 35-104 [facility] Comment on above: Performed By: #### L 503.7505, L100.0500, L503.6005, L500.4050, L501.2450 ####[facility] [address] [place], [address] ALT [Catalytic activity/Vol] 6 U/L Normal <=34 [facility] Comment on above: Performed By: #### L 503.7505, L100.0500, L503.6005, L500.4050, L501.2450 ####[facility] [address] [place], [address] AST [Catalytic activity/Vol] 24 U/L Normal <=31 [facility] Comment on above: Performed By: #### L 503.7505, L100.0500, L503.6005, L500.4050, L501.2450 ####[facility] [address] [place], [address] Bilirubin [Mass/Vol] 0.27 mg/dL Normal 0.00-1.30 [facility] Comment on above: Performed By: #### L 503.7505, L100.0500, L503.6005, L500.4050, L501.2450 ####[facility] [address] [place], [address] BUN/CRE 16.6 RATIO Normal 10-20 [facility] Comment on above: Performed By: #### L 503.7505, L100.0500, L503.6005, L500.4050, L501.2450 ####[facility] [address] [place], [address] Calcium [Mass/Vol] 8.7 mg/dL Normal 7.6-11.0 [facility] Comment on above: Performed By: #### L 503.7505, L100.0500, L503.6005, L500.4050, L501.2450 ####[facility] [address] [place], [address] Chloride [Moles/Vol] 102 mmol/L Normal 98-108 [facility] Comment on above: Performed By: #### L 503.7505, L100.0500, L503.6005, L500.4050, L501.2450 ####[facility] [address] [place], [address] CO2 [Moles/Vol] 24.0 mmol/L Normal 21.0-32.0 [facility] Comment on above: Performed By: #### L 503.7505, L100.0500, L503.6005, L500.4050, L501.2450 ####[facility] [address] [place], [address] Creatinine [Mass/Vol] 1.16 mg/dL Normal 0.70-1.20 [facility] Comment on above: Performed By: #### L 503.7505, L100.0500, L503.6005, L500.4050, L501.2450 ####[facility] [address] [place], [address] ECRCL 42.38 ml/min Low 50-250 [facility] Comment on above: Performed By: #### L 503.7505, L100.0500, L503.6005, L500.4050, L501.2450 ####[facility] [address] [place], [address] GAP 11 Normal 5-15 [facility] Comment on above: Performed By: #### L 503.7505, L100.0500, L503.6005, L500.4050, L501.2450 ####[facility] [address] [place], [address] GFR/1.73 sq M.predicted among non-blacks MDRD (S/P/Bld) [Vol rate/Area] 50 mL/min/{1.73_m2} Low >60 [facility] Comment on above: Result Comment: mL/m in/1.73m2 CKD-EPI Creatinine Equation (2020) Performed By: #### L 503.7505, L100.0500, L503.6005, L500.4050, L501.2450 ####[facility] [address] [place], [address] Globulin (S) [Mass/Vol] 3.8 g/dL Normal 2.2-4.2 [facility] Comment on above: Performed By: #### L 503.7505, L100.0500, L503.6005, L500.4050, L501.2450 ####[facility] [address] [place], [address] Glucose [Mass/Vol] 140 mg/dL High 70-99 [facility] Comment on above: Performed By: #### L 503.7505, L100.0500, L503.6005, L500.4050, L501.2450 ####[facility] [address] [place], [address] Potassium [Moles/Vol] 3.8 mmol/L Normal 3.3-5.1 [facility] Comment on above: Performed By: #### L 503.7505, L100.0500, L503.6005, L500.4050, L501.2450 ####[facility] [address] [place], [address] Sodium [Moles/Vol] 137 mmol/L Normal 133-145 [facility] Comment on above: Performed By: #### L 503.7505, L100.0500, L503.6005, L500.4050, L501.2450 ####[facility] [address] [place], [address] T PROT 6.9 g/dL Normal 5.9-8.4 [facility] Comment on above: Performed By: #### L 503.7505, L100.0500, L503.6005, L500.4050, L501.2450 ####[facility] [address] [place], [address] Urea nitrogen [Mass/Vol] 19 mg/dL Normal 4-19 [facility] Comment on above: Performed By: #### L 503.7505, L100.0500, L503.6005, L500.4050, L501.2450 ####[facility] [address] [place], [address] Emergency Department Summary on 06-02-2025 Emergency Department Summary Normal [facility] Erythrocyte distribution wid th ratioOrdered By: Bossman Sanders on 06-02-2025 Erythrocyte distribution width (RBC) [Ratio] 13.4 % 11.6-14.6 [facility] Erythrocyte distribution wid th standard deviationOrdered By: Bossman Sanders on 06-02-2025 Erythrocyte distribution width (RBC) [Ratio] 46.7 fl High 35.1-43.9 [facility] Glomerular filtration rate ( GFR) estimation/1.73 sq m using serum, plasma, or whole bOrdered By: Bossman Sanders on 06-02-2025 GFR/1.73 sq M.predicted among non-blacks MDRD (S/P/Bld) [Vol rate/Area] 50 mL/min/{1.73_m2} Low >60 [facility] H AND P Exam - Hospital[place] 06-02-2025 H&P Exam - Hospitalist Normal [facility] Hematocrit Auto (Bld) [Volum e fraction]Ordered By: Bossman Sanders on 06-02-2025 Hematocrit (Bld) [Volume fraction] 34.6 % Low 37-47 [facility] Hemoglobin measurementOrdere d By: Bossman Sanders on 06-02-2025 Hemoglobin (Bld) [Mass/Vol] 11.2 g/dL Low 12.0-15.0 [facility] Influenza virus A and B and SARS-CoV-2 (COVID-19) and Respiratory syncytial virus RNAOrdered By: Bossman Sanders on 06-02-2025 SARS-CoV-2 (COVID-19) RNA ENRIQUE+probe Ql (Unsp spec) [facility] L503.7505on 06-02-2025 Natriuretic peptide B (Bld) [Mass/Vol] 948 pg/mL High <=900 [facility] Comment on above: Result Comment: Hear t Failure Unlikely: < 300 pg/mLHeart Failure Likely< 50 Years: > 450 pg/mL50-75 Years: > 900 pg/mL>75 Years: > 1800 pg/mL Performed By: #### L 503.7505, L100.0500, L503.6005, L500.4050, L501.2450 ####[facility] [address] [place], [address] Lactic Acidon 06-02-2025 Lactate [Moles/Vol] 1.3 mmol/L Normal 0.0-2.0 [facility] Comment on above: Order Comment: Y Performed By: #### L 503.7505, L100.0500, L503.6005, L500.4050, L501.2450 ####[facility] [address] [place], [address] Lipaseon 06-02-2025 Lipase [Catalytic activity/Vol] 15 U/L Normal 13-75 [facility] Comment on above: Result Comment: Josy fay note:LIPASE revised reference range effective 23.New Lipase methodology. Expected to produce lower valuesthan the previous assay method.NEW Reference Range: 13 - 75 U/L Performed By: #### L 503.7505, L100.0500, L503.6005, L500.4050, L501.2450 ####[facility] [address] [place], [address] M100.678on 06-02-2025 M100.678 SARS-CoV-2 (COVID 19 ) Negative INFLUENZA A Negative INFLUENZA B Negative RSV PCR Negative Normal [facility] Comment on above: Performed By: #### M 100.678 ####[facility] [address] [place], [address] MCV (mean corpuscular volume ) determinationOrdered By: Bossman Sanders on 06-02-2025 MCV (RBC) [Entitic vol] 94.5 fL 81-99 [facility] Mean corpuscular hemoglobin (MCH) determinationOrdered By: Bossman Sanders on 06-02-2025 MCH (RBC) [Entitic mass] 30.6 pg 27.0-32.0 [facility] Natriuretic peptide.B prohor guillermina N-Terminal [Mass/volume] in Serum or PlasmaOrdered By: Bossman Sanders on 06-02-2025 Natriuretic peptide.B prohormone N-Terminal [Mass/Vol] 948 pg/mL High <900 [facility] No Panel InformationOrdered By: Bossman Sanders on 06-02-2025 24 U/L <32 [facility] Platelet countOrdered By: Sabino Sanders on 06-02-2025 Platelets (Bld) [#/Vol] 230 10*3/uL 150-450 [facility] Potassium measurement (mass/ volume)Ordered By: Bossman Sanders on 06-02-2025 Potassium (Unsp spec) [Mass/Vol] 3.8 mmol/L 3.3-5.1 [facility] RBC Auto (Bld) [#/Vol]Ordere d By: Bossman Sanders on 06-02-2025 RBC (Bld) [#/Vol] 3.66 10*6/uL Low 4.2-5.4 [facility] RESPIRATORY PANEL MOLECULARo n 06-02-2025 RP PANEL Normal [facility] Comment on above: Performed By: #### M 100.638 ####[facility] [address] [place], [address] Respiratory pathogens detect ion panel by molecular detection methodOrdered By: Bossman Sanders on 06-02-2025 Respiratory pathogens DNA and RNA panel ENRIQUE+probe (Resp) [facility] Serum creatinine measurement (mass/volume)Ordered By: Bossman Sanders on 06-02-2025 Creatinine [Mass/Vol] 1.16 mg/dL 0.70-1.20 [facility] Serum globulin measurementOr dered By: Bossman Sanders on 06-02-2025 Globulin (S) [Mass/Vol] 3.8 g/dL 2.2-4.2 [facility] Serum glucose measurement (m ass/volume)Ordered By: Bossman Sanders on 06-02-2025 Glucose [Mass/Vol] 140 mg/dL High 70-99 [facility] Serum or plasma alanine cisneros otransferase (ALT) measurementOrdered By: Bossman Sanders on 06-02-2025 ALT [Catalytic activity/Vol] 6 U/L <35 [facility] Serum or plasma albumin loco urement (mass/volume)Ordered By: Bossman Sanders on 06-02-2025 Albumin [Mass/Vol] 3.1 g/dL Low 3.4-4.8 [facility] Serum or plasma albumin/glob ulin mass ratioOrdered By: Bossman Sanders on 06-02-2025 Albumin/Globulin [Mass ratio] 0.8 {ratio} Low 0.9-2.4 [facility] Serum or plasma alkaline sergio sphatase measurementOrdered By: Bossman Sanders on 06-02-2025 ALP [Catalytic activity/Vol] 70 U/L 35-104 [facility] Serum or plasma calcium loco urement (mass/volume)Ordered By: Remus Marilyn on 06-02-2025 Calcium [Mass/Vol] 8.7 mg/dL 7.6-11.0 [facility] Serum or plasma urea nitroge n measurement (mass/volume)Ordered By: Remus Ungko on 06-02-2025 Urea nitrogen [Mass/Vol] 19 mg/dL 4-19 [facility] Sodium levelOrdered By: Remu s Ungko on 06-02-2025 Sodium [Moles/Vol] 137 mmol/L 133-145 [facility] Total proteinOrdered By: Rem us Ungko on 06-02-2025 Protein [Mass/Vol] 6.9 g/dL 5.9-8.4 [facility] White blood cell (WBC) count Ordered By: Remus Marilyn on 06-02-2025 WBC (Bld) [#/Vol] 9.0 10*3/uL 4.4-11.0 [facility] Gastroenterology Visit Repor ton 05-30-2025 Gastroenterology Visit Report Normal [facility] Cardiology Visit Reporton Cardiology Visit Report Normal [facility] Urine Cultureon 05-25-2025 URC Normal [facility] Comment on above: Performed By: #### M 100.2200 ####[facility] [address] [place], [address] Absolute lymphocyte countOrd ered By: Fazal Heller on 05-22-2025 Lymphocytes Auto (Unsp spec) [#/Vol] 1.30 10*3/uL 0.83-4.51 [facility] Absolute neutrophil countOrd ered By: Fazal Heller on 05-22-2025 Neutrophils (Bld) [#/Vol] 5.0 10*3/uL 2.0-7.7 [facility] Anion gap in Serum or Plasma Ordered By: Fazal Heller on 05-22-2025 Anion gap [Moles/Vol] 10 mmol/L 5-15 [facility] Automated blood erythrocyte countOrdered By: Fazal Heller on 05-22-2025 RBC (Bld) [#/Vol] 3.05 10*6/uL Low 4.2-5.4 [facility] Comment on above: Performed By: #### L 500.4050, L501.2450, L100.0100 ####[facility] [address] [place], [address] Automated blood hematocrit ( percentage)Ordered By: Fazal Heller on 05-22-2025 Hematocrit (Bld) [Volume fraction] 29.1 % Low 37-47 [facility] Comment on above: Performed By: #### L 500.4050, L501.2450, L100.0100 ####[facility] [address] [place], [address] Automated lymphocyte count a s percentage of total leukocytesOrdered By: Fazal Heller on 05-22-2025 Lymphocytes/100 WBC Auto (Unsp spec) 17.5 % Low 19-41 [facility] BUN/creatinine ratioOrdered By: Fazal Heller on 05-22-2025 Urea nitrogen/Creatinine [Mass ratio] 20.0 mg/mg 10-20 [facility] Basophil percentageOrdered B y: Fazal Heller on 05-22-2025 Basophils/100 WBC (Bld) 0.4 % Normal 0-1 [facility] Comment on above: Performed By: #### L 500.4050, L501.2450, L100.0100 ####[facility] [address] [place], [address] Bilirubin Test strip Ql (U)O rdered By: Fazal Heller on 05-22-2025 Bilirubin Ql (U) 6 mg/dL High Negative [facility] Comment on above: COLOR OF URINE MAY A FFECT DIPSTICK RESULTS. Bilirubin, totalOrdered By: Fazal Heller on 05-22-2025 Bilirubin [Mass/Vol] 0.27 mg/dL 0.00-1.30 [facility] CBC W/Diff, Automatedon Absolute Lymph 1.30 X10 3/uL Normal 0.83-4.51 [facility] Comment on above: Performed By: #### L 500.4050, L501.2450, L100.0100 ####[facility] [address] [place], [address] Absolute Neut 5.0 X10 3/uL Normal 2.0-7.7 [facility] Comment on above: Performed By: #### L 500.4050, L501.2450, L100.0100 ####[facility] [address] [place], [address] Lymphocytes/100 WBC (Bld) 17.5 % Low 19-41 [facility] Comment on above: Performed By: #### L 500.4050, L501.2450, L100.0100 ####[facility] [address] [place], [address] RDW SD 45.8 fl High 35.1-43.9 [facility] Comment on above: Performed By: #### L 500.4050, L501.2450, L100.0100 ####[facility] [address] [place], [address] Absolute Lymph 1.18 X10 3/uL Normal 0.83-4.51 [facility] Comment on above: Performed By: #### L 501.2450, L500.4050, L100.0100 ####[facility] [address] [place], [address] Absolute Neut 5.1 X10 3/uL Normal 2.0-7.7 [facility] Comment on above: Performed By: #### L 501.2450, L500.4050, L100.0100 ####[facility] [address] [place], [address] Basophils/100 WBC (Bld) 0.4 % Normal 0-1 [facility] Comment on above: Performed By: #### L 501.2450, L500.4050, L100.0100 ####[facility] [address] [place], [address] Eosinophils/100 WBC (Bld) 2.1 % Normal 0-5 [facility] Comment on above: Performed By: #### L 501.2450, L500.4050, L100.0100 ####[facility] [address] [place], [address] Erythrocyte distribution width (RBC) [Ratio] 13.2 % Normal 11.6-14.6 [facility] Comment on above: Performed By: #### L 501.2450, L500.4050, L100.0100 ####[facility] [address] [place], [address] Hematocrit (Bld) [Volume fraction] 32.8 % Low 37-47 [facility] Comment on above: Performed By: #### L 501.2450, L500.4050, L100.0100 ####[facility] [address] [place], [address] Hemoglobin (Bld) [Mass/Vol] 10.6 g/dL Low 12.0-15.0 [facility] Comment on above: Performed By: #### L 501.2450, L500.4050, L100.0100 ####[facility] [address] [place], [address] IG% 0.400 Normal 0.0-0.9 [facility] Comment on above: Result Comment: IG% - Immature Granulocytes (promyelocytes, myelocytes andmetamyelocytes) > 1% indicates that a LEFT SHIFT is Present. Performed By: #### L 500.4050, L501.2450, L100.0100 ####[facility] [address] [place], [address] Performed By: #### L 501.2450, L500.4050, L100.0100 ####[facility] [address] [place], [address] Lymphocytes/100 WBC (Bld) 16.2 % Low 19-41 [facility] Comment on above: Performed By: #### L 501.2450, L500.4050, L100.0100 ####[facility] [address] [place], [address] MCH (RBC) [Entitic mass] 30.9 pg Normal 27.0-32.0 [facility] Comment on above: Performed By: #### L 501.2450, L500.4050, L100.0100 ####[facility] [address] [place], [address] MCHC (RBC) [Mass/Vol] 32.3 g/dL Normal 32-36 [facility] Comment on above: Performed By: #### L 501.2450, L500.4050, L100.0100 ####[facility] [address] [place], [address] MCV (RBC) [Entitic vol] 95.6 fL Normal 81-99 [facility] Comment on above: Performed By: #### L 501.2450, L500.4050, L100.0100 ####[facility] [address] [place], [address] Monocytes/100 WBC (Bld) 10.4 % High 0-10 [facility] Comment on above: Performed By: #### L 501.2450, L500.4050, L100.0100 ####[facility] [address] [place], [address] Neutrophils/100 WBC (Bld) 70.5 % High 47-70 [facility] Comment on above: Performed By: #### L 501.2450, L500.4050, L100.0100 ####[facility] [address] [place], [address] Nucleated RBC (Bld) [#/Vol] 0 10*3/uL Normal 0-5 [facility] Comment on above: Performed By: #### L 500.4050, L501.2450, L100.0100 ####[facility] [address] [place], [address] Performed By: #### L 501.2450, L500.4050, L100.0100 ####[facility] [address] [place], [address] Platelet mean volume (Bld) [Entitic vol] 10.2 fL Normal 6.2-12.0 [facility] Comment on above: Performed By: #### L 501.2450, L500.4050, L100.0100 ####[facility] [address] [place], [address] Platelets (Bld) [#/Vol] 221 10*3/uL Normal 150-450 [facility] Comment on above: Performed By: #### L 501.2450, L500.4050, L100.0100 ####[facility] [address] [place], [address] RBC (Bld) [#/Vol] 3.43 10*6/uL Low 4.2-5.4 [facility] Comment on above: Performed By: #### L 501.2450, L500.4050, L100.0100 ####[facility] [address] [place], [address] RDW SD 46.4 fl High 35.1-43.9 [facility] Comment on above: Performed By: #### L 501.2450, L500.4050, L100.0100 ####[facility] [address] [place], [address] WBC (Bld) [#/Vol] 7.3 10*3/uL Normal 4.4-11.0 [facility] Comment on above: Performed By: #### L 501.2450, L500.4050, L100.0100 ####[facility] [address] [place], [address] CTA Abd/Pelvis W/WO Contrast on 05-22-2025 CTA Abd/Pelvis W/WO Contrast Normal [facility] Carbon dioxide, total [Moles /volume] in Central venous bloodOrdered By: Fazal Heller on 05-22-2025 CO2 [Moles/Vol] 25.3 mmol/L 21.0-32.0 [facility] Chloride assayOrdered By: Renny Heller on 05-22-2025 Chloride [Moles/Vol] 102 mmol/L 98-108 [facility] Comprehensive Metabolic Prof ilon 05-22-2025 Albumin [Mass/Vol] 3.1 g/dL Low 3.4-4.8 [facility] Comment on above: Performed By: #### L 500.4050, L501.2450, L100.0100 ####[facility] [address] [place], [address] Albumin/Globulin [Mass ratio] 0.9 {ratio} Normal 0.9-2.4 [facility] Comment on above: Performed By: #### L 500.4050, L501.2450, L100.0100 ####[facility] [address] [place], [address] ALK PHOS 67 U/L Normal 35-104 [facility] Comment on above: Performed By: #### L 500.4050, L501.2450, L100.0100 ####[facility] [address] [place], [address] ALT [Catalytic activity/Vol] 7 U/L Normal <=34 [facility] Comment on above: Performed By: #### L 500.4050, L501.2450, L100.0100 ####[facility] [address] [place], [address] AST [Catalytic activity/Vol] 28 U/L Normal <=31 [facility] Comment on above: Performed By: #### L 500.4050, L501.2450, L100.0100 ####[facility] [address] [place], [address] Bilirubin [Mass/Vol] 0.27 mg/dL Normal 0.00-1.30 [facility] Comment on above: Performed By: #### L 500.4050, L501.2450, L100.0100 ####[facility] [address] [place], [address] BUN/CRE 20.0 RATIO Normal 10-20 [facility] Comment on above: Performed By: #### L 500.4050, L501.2450, L100.0100 ####[facility] [address] [place], [address] Calcium [Mass/Vol] 8.7 mg/dL Normal 7.6-11.0 [facility] Comment on above: Performed By: #### L 500.4050, L501.2450, L100.0100 ####[facility] [address] [place], [address] Chloride [Moles/Vol] 102 mmol/L Normal 98-108 [facility] Comment on above: Performed By: #### L 500.4050, L501.2450, L100.0100 ####[facility] [address] [place], [address] CO2 [Moles/Vol] 25.3 mmol/L Normal 21.0-32.0 [facility] Comment on above: Performed By: #### L 500.4050, L501.2450, L100.0100 ####[facility] [address] [place], [address] Creatinine [Mass/Vol] 1.42 mg/dL High 0.70-1.20 [facility] Comment on above: Performed By: #### L 500.4050, L501.2450, L100.0100 ####[facility] [address] [place], [address] ECRCL 35.59 ml/min Low 50-250 [facility] Comment on above: Performed By: #### L 500.4050, L501.2450, L100.0100 ####[facility] [address] [place], [address] GAP 10 Normal 5-15 [facility] Comment on above: Performed By: #### L 500.4050, L501.2450, L100.0100 ####[facility] [address] [place], [address] GFR/1.73 sq M.predicted among non-blacks MDRD (S/P/Bld) [Vol rate/Area] 39 mL/min/{1.73_m2} Low >60 [facility] Comment on above: Result Comment: mL/m in/1.73m2 CKD-EPI Creatinine Equation (2020) Performed By: #### L 500.4050, L501.2450, L100.0100 ####[facility] [address] [place], [address] Globulin (S) [Mass/Vol] 3.3 g/dL Normal 2.2-4.2 [facility] Comment on above: Performed By: #### L 500.4050, L501.2450, L100.0100 ####[facility] [address] [place], [address] Glucose [Mass/Vol] 173 mg/dL High 70-99 [facility] Comment on above: Performed By: #### L 500.4050, L501.2450, L100.0100 ####[facility] [address] [place], [address] Potassium [Moles/Vol] 4.6 mmol/L Normal 3.3-5.1 [facility] Comment on above: Performed By: #### L 500.4050, L501.2450, L100.0100 ####[facility] [address] [place], [address] Sodium [Moles/Vol] 137 mmol/L Normal 133-145 [facility] Comment on above: Performed By: #### L 500.4050, L501.2450, L100.0100 ####[facility] [address] [place], [address] T PROT 6.4 g/dL Normal 5.9-8.4 [facility] Comment on above: Performed By: #### L 500.4050, L501.2450, L100.0100 ####[facility] [address] [place], [address] Urea nitrogen [Mass/Vol] 28 mg/dL High 4-19 [facility] Comment on above: Performed By: #### L 500.4050, L501.2450, L100.0100 ####[facility] [address] [place], [address] Albumin [Mass/Vol] 3.2 g/dL Low 3.4-4.8 [facility] Comment on above: Performed By: #### L 501.2450, L500.4050, L100.0100 ####[facility] [address] [place], [address] Albumin/Globulin [Mass ratio] 0.9 {ratio} Normal 0.9-2.4 [facility] Comment on above: Performed By: #### L 501.2450, L500.4050, L100.0100 ####[facility] [address] [place], [address] ALK PHOS 74 U/L Normal 35-104 [facility] Comment on above: Performed By: #### L 501.2450, L500.4050, L100.0100 ####[facility] [address] [place], [address] ALT [Catalytic activity/Vol] 6 U/L Normal <=34 [facility] Comment on above: Performed By: #### L 501.2450, L500.4050, L100.0100 ####[facility] [address] [place], [address] AST [Catalytic activity/Vol] 30 U/L Normal <=31 [facility] Comment on above: Performed By: #### L 501.2450, L500.4050, L100.0100 ####[facility] [address] [place], [address] Bilirubin [Mass/Vol] 0.33 mg/dL Normal 0.00-1.30 [facility] Comment on above: Performed By: #### L 501.2450, L500.4050, L100.0100 ####[facility] [address] [place], [address] BUN/CRE 19.7 RATIO Normal 10-20 [facility] Comment on above: Performed By: #### L 501.2450, L500.4050, L100.0100 ####[facility] [address] [place], [address] Calcium [Mass/Vol] 9.0 mg/dL Normal 7.6-11.0 [facility] Comment on above: Performed By: #### L 501.2450, L500.4050, L100.0100 ####[facility] [address] [place], [address] Chloride [Moles/Vol] 100 mmol/L Normal 98-108 [facility] Comment on above: Performed By: #### L 501.2450, L500.4050, L100.0100 ####[facility] [address] [place], [address] CO2 [Moles/Vol] 23.7 mmol/L Normal 21.0-32.0 [facility] Comment on above: Performed By: #### L 501.2450, L500.4050, L100.0100 ####[facility] [address] [place], [address] Creatinine [Mass/Vol] 1.39 mg/dL High 0.70-1.20 [facility] Comment on above: Performed By: #### L 501.2450, L500.4050, L100.0100 ####[facility] [address] [place], [address] ECRCL 36.36 ml/min Low 50-250 [facility] Comment on above: Performed By: #### L 501.2450, L500.4050, L100.0100 ####[facility] [address] [place], [address] GAP 12 Normal 5-15 [facility] Comment on above: Performed By: #### L 501.2450, L500.4050, L100.0100 ####[facility] [address] [place], [address] GFR/1.73 sq M.predicted among non-blacks MDRD (S/P/Bld) [Vol rate/Area] 40 mL/min/{1.73_m2} Low >60 [facility] Comment on above: Result Comment: mL/m in/1.73m2 CKD-EPI Creatinine Equation (2020) Performed By: #### L 501.2450, L500.4050, L100.0100 ####[facility] [address] [place], [address] Globulin (S) [Mass/Vol] 3.6 g/dL Normal 2.2-4.2 [facility] Comment on above: Performed By: #### L 501.2450, L500.4050, L100.0100 ####[facility] [address] [place], [address] Glucose [Mass/Vol] 236 mg/dL High 70-99 [facility] Comment on above: Performed By: #### L 501.2450, L500.4050, L100.0100 ####[facility] [address] [place], [address] Potassium [Moles/Vol] 4.4 mmol/L Normal 3.3-5.1 [facility] Comment on above: Performed By: #### L 501.2450, L500.4050, L100.0100 ####[facility] [address] [place], [address] Sodium [Moles/Vol] 136 mmol/L Normal 133-145 [facility] Comment on above: Performed By: #### L 501.2450, L500.4050, L100.0100 ####[facility] [address] [place], [address] T PROT 6.8 g/dL Normal 5.9-8.4 [facility] Comment on above: Performed By: #### L 501.2450, L500.4050, L100.0100 ####[facility] [address] [place], [address] Urea nitrogen [Mass/Vol] 27 mg/dL High 4-19 [facility] Comment on above: Performed By: #### L 501.2450, L500.4050, L100.0100 ####[facility] [address] [place], [address] Emergency Department Summary on 05-22-2025 Emergency Department Summary Normal [facility] Eosinophil percentageOrdered By: Fazal Heller on 05-22-2025 Eosinophils/100 WBC (Bld) 2.2 % Normal 0-5 [facility] Comment on above: Performed By: #### L 500.4050, L501.2450, L100.0100 ####[facility] [address] [place], [address] Erythrocyte distribution wid th ratioOrdered By: Fazal Heller on 05-22-2025 Erythrocyte distribution width (RBC) [Ratio] 13.2 % Normal 11.6-14.6 [facility] Comment on above: Performed By: #### L 500.4050, L501.2450, L100.0100 ####[facility] [address] [place], [address] Erythrocyte distribution wid th standard deviationOrdered By: Fazal Heller on 05-22-2025 Erythrocyte distribution width (RBC) [Ratio] 45.8 fl High 35.1-43.9 [facility] Glomerular filtration rate ( GFR) estimation/1.73 sq m using serum, plasma, or whole bOrdered By: Fazal Heller on 05-22-2025 GFR/1.73 sq M.predicted among non-blacks MDRD (S/P/Bld) [Vol rate/Area] 39 mL/min/{1.73_m2} Low >60 [facility] Comment on above: mL/min/1.73m2 CKD-EP I Creatinine Equation (2020) Hemoglobin measurementOrdere d By: Fazal Heller on 05-22-2025 Hemoglobin (Bld) [Mass/Vol] 9.4 g/dL Low 12.0-15.0 [facility] Comment on above: Performed By: #### L 500.4050, L501.2450, L100.0100 ####[facility] [address] [place], [address] Immature granulocytes/100 WB C Auto (Bld)Ordered By: Fazal Heller on 05-22-2025 Immature granulocytes/100 WBC (Bld) 0.400 % 0.0-0.9 [facility] Comment on above: IG% - Immature Granu locytes (promyelocytes, myelocytes and metamyelocytes) > 1% indicates that a LEFT SHIFT is Present. Ketones Test strip Ql (U)Ord ered By: Fazal Heller on 05-22-2025 Ketones Ql (U) Negative Negative [facility] Laboratory - Chemistry and C hemistry - challengeOrdered By: Fazal Heller on 05-22-2025 AST [Catalytic activity/Vol] 28 U/L <32 [facility] Lipaseon 05-22-2025 Lipase [Catalytic activity/Vol] 13 U/L Normal 13-75 [facility] Comment on above: Result Comment: Plehema fay note:LIPASE revised reference range effective 23.New Lipase methodology. Expected to produce lower valuesthan the previous assay method.NEW Reference Range: 13 - 75 U/L Performed By: #### L 500.4050, L501.2450, L100.0100 ####[facility] [address] [facility] [place], [place], [phone] Lipase [Catalytic activity/Vol] 15 U/L Normal 13-75 [facility] Comment on above: Result Comment: Plehema fay note:LIPASE revised reference range effective 23.New Lipase methodology. Expected to produce lower valuesthan the previous assay method.NEW Reference Range: 13 - 75 U/L Performed By: #### L 501.2450, L500.4050, L100.0100 ####[facility] [address] [place], [address] Lipase measurementOrdered By : Fazal Heller on 05-22-2025 Lipase [Catalytic activity/Vol] 13 U/L 13-75 [facility] Comment on above: Please note:LIPASE r evised reference range effective 23. New Lipase methodology. Expected to produce lower values than the previous assay method. NEW Reference Range: 13 - 75 U/L MCV (mean corpuscular volume ) determinationOrdered By: Fazal Heller on 05-22-2025 MCV (RBC) [Entitic vol] 95.4 fL Normal 81-99 [facility] Comment on above: Performed By: #### L 500.4050, L501.2450, L100.0100 ####[facility] [address] [place], [address] Mean corpuscular hemoglobin (MCH) determinationOrdered By: Fazal Heller on 05-22-2025 MCH (RBC) [Entitic mass] 30.8 pg Normal 27.0-32.0 [facility] Comment on above: Performed By: #### L 500.4050, L501.2450, L100.0100 ####[facility] [address] [place], [address] Mean corpuscular hemoglobin concentration (MCHC) determinationOrdered By: Fazal Heller on 05-22-2025 MCHC (RBC) [Mass/Vol] 32.3 g/dL Normal 32-36 [facility] Comment on above: Performed By: #### L 500.4050, L501.2450, L100.0100 ####[facility] [address] [place], [address] Mean platelet volume determi nationOrdered By: Fazal Heller on 05-22-2025 Platelet mean volume (Bld) [Entitic vol] 10.4 fL Normal 6.2-12.0 [facility] Comment on above: Performed By: #### L 500.4050, L501.2450, L100.0100 ####[facility] [address] [place], [address] Microscopic analysis of urin e for red blood cells (RBC)Ordered By: Fazal Heller on 05-22-2025 Microscopic analysis of urine for red blood cells (RBC) 0-5 SEEN /hpf 0-5 [facility] Monocyte percentageOrdered B y: Fazal Heller on 05-22-2025 Monocytes/100 WBC (Bld) 12.5 % High 0-10 [facility] Comment on above: Performed By: #### L 500.4050, L501.2450, L100.0100 ####[facility] [address] [place], [place], [id number] Mucus LM Ql (Urine sed)Order ed By: Fazal Heller on 05-22-2025 Mucus Ql (Urine sed) 0 SEEN /hpf [facility] Neutrophil percentageOrdered By: Fazal Heller on 05-22-2025 Neutrophils/100 WBC (Bld) 67.0 % Normal 47-70 [facility] Comment on above: Performed By: #### L 500.4050, L501.2450, L100.0100 ####[facility] [address] [place], [place], [phone] Nitrite Test strip Ql (U)Ord ered By: Fazal Heller on 05-22-2025 Nitrite Ql (U) Positive High Negative [facility] No Panel InformationOrdered By: Fazal Heller on 05-22-2025 28 U/L <32 [facility] Nucleated red blood cell per centageOrdered By: Fazal Heller on 05-22-2025 Nucleated RBC/100 WBC (Bld) [Ratio] 0 % 0-5 [facility] Platelet countOrdered By: Renny Heller on 05-22-2025 Platelets (Bld) [#/Vol] 193 10*3/uL Normal 150-450 [facility] Comment on above: Performed By: #### L 500.4050, L501.2450, L100.0100 ####[facility] [address] [place], [place], [phone] Potassium measurement (mass/ volume)Ordered By: Fazal Heller on 05-22-2025 Potassium (Unsp spec) [Mass/Vol] 4.6 mmol/L 3.3-5.1 [facility] Protein Test strip Ql (U)Ord ered By: Fazal Heller on 05-22-2025 Protein Ql (U) 30 mg/dl High Negative [facility] Serum creatinine measurement (mass/volume)Ordered By: Fazal Heller on 05-22-2025 Creatinine [Mass/Vol] 1.42 mg/dL High 0.70-1.20 [facility] Serum globulin measurementOr dered By: Fazal Heller on 05-22-2025 Globulin (S) [Mass/Vol] 3.3 g/dL 2.2-4.2 [facility] Serum glucose measurement (m ass/volume)Ordered By: Fazal Heller on 05-22-2025 Glucose [Mass/Vol] 173 mg/dL High 70-99 [facility] Serum or plasma alanine cisneros otransferase (ALT) measurementOrdered By: Fazal Heller on 05-22-2025 ALT [Catalytic activity/Vol] 7 U/L <35 [facility] Serum or plasma albumin loco urement (mass/volume)Ordered By: Fazal Heller on 05-22-2025 Albumin [Mass/Vol] 3.1 g/dL Low 3.4-4.8 [facility] Serum or plasma albumin/glob ulin mass ratioOrdered By: Fazal Heller on 05-22-2025 Albumin/Globulin [Mass ratio] 0.9 {ratio} 0.9-2.4 [facility] Serum or plasma alkaline sergio sphatase measurementOrdered By: Fazal Heller on 05-22-2025 ALP [Catalytic activity/Vol] 67 U/L 35-104 [facility] Serum or plasma calcium loco urement (mass/volume)Ordered By: Fazal Heller on 05-22-2025 Calcium [Mass/Vol] 8.7 mg/dL 7.6-11.0 [facility] Serum or plasma urea nitroge n measurement (mass/volume)Ordered By: Fazal Heller on 05-22-2025 Urea nitrogen [Mass/Vol] 28 mg/dL High 4-19 [facility] Sodium levelOrdered By: Nelly Heller on 05-22-2025 Sodium [Moles/Vol] 137 mmol/L 133-145 [facility] Squamous epithelial cells de tection in urine sediment by light microscopyOrdered By: Fazal Heller on 05-22-2025 Epithelial cells.squamous LM Ql (Urine sed) 0 SEEN /hpf 5-10 [facility] Total proteinOrdered By: Radha Heller on 05-22-2025 Protein [Mass/Vol] 6.4 g/dL 5.9-8.4 [facility] Urinalysis, Completeon 05-22 BACTERIA 1+ /hpf Normal None Seen [facility] Comment on above: Order Comment: COLOR OF URINE MAY AFFECT DIPSTICK RESULTS.CLEAN CATCH Performed By: #### L 400.0001 ####[facility] [address] [place], [address] RBC 0-5 SEEN Normal 0-5 [facility] Comment on above: Order Comment: COLOR OF URINE MAY AFFECT DIPSTICK RESULTS.CLEAN CATCH Performed By: #### L 400.0001 ####[facility] [address] [place], [address] WBC 25-50 SEEN Normal 0-5 [facility] Comment on above: Order Comment: COLOR OF URINE MAY AFFECT DIPSTICK RESULTS.CLEAN CATCH Performed By: #### L 400.0001 ####[facility] [address] [place], [address] EPI,SQUAMOUS 0 SEEN Normal 5-10 [facility] Comment on above: Order Comment: COLOR OF URINE MAY AFFECT DIPSTICK RESULTS.CLEAN CATCH Performed By: #### L 400.0001 ####[facility] [address] [place], [address] Mucus Ql (Urine sed) 0 SEEN Normal [facility] Comment on above: Order Comment: COLOR OF URINE MAY AFFECT DIPSTICK RESULTS.CLEAN CATCH Performed By: #### L 400.0001 ####[facility] [address] [place], [address] Urine clarityOrdered By: Radha Heller on 05-22-2025 Clarity (U) Sl. Cloudy Clear [facility] Urine color determinationOrd ered By: Fazal Heller on 05-22-2025 Color (U) Ena Yellow [facility] Urine cultureOrdered By: Radha Heller on 05-22-2025 Bacteria identified Cx Nom (U) Pseudomonas aeruginosa Abnormal [facility] Urine glucose detectionOrder ed By: Fazal Heller on 05-22-2025 Glucose Ql (U) Normal mg/dl Normal [facility] Urine leukocyte esterase det ection by dipstickOrdered By: Fazal Heller on 05-22-2025 Leukocyte esterase Test strip Ql (U) 100 /ul High Negative [facility] Urine pHOrdered By: Fazal reis on 05-22-2025 pH (U) 7.0 [pH] 5.0 - 8.0 [facility] Urine sediment bacteria coun t by microscopy (number/high power field)Ordered By: Fazal Heller on 05-22-2025 Bacteria LM.HPF (Urine sed) [#/Area] 1 /[HPF] None Seen [facility] Urine specific gravity measu rementOrdered By: Fazal Heller on 05-22-2025 Specific gravity (U) [Rel density] 1.005 1.002-1.03 0 [facility] Urine urobilinogen measureme ntOrdered By: Fazal Heller on 05-22-2025 Urobilinogen Ql (U) 8 mg/dl High Normal [facility] White blood cell (WBC) count Ordered By: Fazal Heller on 05-22-2025 WBC (Bld) [#/Vol] 7.4 10*3/uL Normal 4.4-11.0 [facility] Comment on above: Performed By: #### L 500.4050, L501.2450, L100.0100 ####[facility] [address] [place], [place], [phone] White blood cell countOrdere d By: Fazal Heller on 05-22-2025 White blood cell count 25-50 SEEN /hpf 0-5 [facility] Bedside Glucoseon 05-03-2025 FINGERSTICK GLU 136 mg/dL High 74-106 [facility] Comment on above: Result Comment: TORRES GEMENT OF PATIENT CARE PER NURSING PROTOCOL Performed By: #### L 501.080 ####[facility] [address] [place], [place], [phone] [facility] deOrdered By: Alonso Marte on 05-03-2025 Glucose [Mass/Vol] 136 mg/dL High 74-106 [facility] Comment on above: MANAGEMENT OF PATIEN T CARE PER NURSING PROTOCOL Bedside Glucoseon 05-02-2025 FINGERSTICK GLU 149 mg/dL High 74-106 [facility] Comment on above: Result Comment: TORRES GEMENT OF PATIENT CARE PER NURSING PROTOCOL Performed By: #### L 501.080 ####[facility] [address] [place], [address] FINGERSTICK GLU 136 mg/dL High 74-106 [facility] Comment on above: Result Comment: TORRES GEMENT OF PATIENT CARE PER NURSING PROTOCOL Performed By: #### L 501.080 ####[facility] [address] [place], [place], [phone] Absolute lymphocyte countOrd ered By: Alonso Marte on 05-01-2025 Lymphocytes Auto (Unsp spec) [#/Vol] 1.34 10*3/uL 0.83-4.51 [facility] Absolute neutrophil countOrd ered By: Alonso Marte on 05-01-2025 Neutrophils (Bld) [#/Vol] 3.0 10*3/uL 2.0-7.7 [facility] Anion gap in Serum or Plasma Ordered By: Alonso Marte on 05-01-2025 Anion gap [Moles/Vol] 9 mmol/L 5-15 [facility] Automated lymphocyte count a s percentage of total leukocytesOrdered By: Alonso Marte on 05-01-2025 Lymphocytes/100 WBC Auto (Unsp spec) 25.5 % 19-41 [facility] BUN/creatinine ratioOrdered By: Alonso Marte on 05-01-2025 Urea nitrogen/Creatinine [Mass ratio] 18.3 mg/mg - [facility] Basic Metabolic Profile (BMP )on 05-01-2025 BUN/CRE 18.3 RATIO Normal 09-10 [facility] Comment on above: Performed By: #### L 100.0100, L500.2500 ####[facility] [address] [place], [address] Calcium [Mass/Vol] 8.7 mg/dL Normal 7.6-11.0 [facility] Comment on above: Performed By: #### L 100.0100, L500.2500 ####[facility] [address] [place], [address] Chloride [Moles/Vol] 104 mmol/L Normal 98-108 [facility] Comment on above: Performed By: #### L 100.0100, L500.2500 ####[facility] [address] [place], [address] CO2 [Moles/Vol] 24.5 mmol/L Normal 21.0-32.0 [facility] Comment on above: Performed By: #### L 100.0100, L500.2500 ####[facility] [address] [place], [address] Creatinine [Mass/Vol] 0.88 mg/dL Normal 0.70-1.20 [facility] Comment on above: Performed By: #### L 100.0100, L500.2500 ####[facility] [address] [place], [address] ECRCL 55.61 ml/min Normal 50-250 [facility] Comment on above: Performed By: #### L 100.0100, L500.2500 ####[facility] [address] [place], [address] GAP 9 Normal 5-15 [facility] Comment on above: Performed By: #### L 100.0100, L500.2500 ####[facility] [address] [place], [address] GFR/1.73 sq M.predicted among non-blacks MDRD (S/P/Bld) [Vol rate/Area] 70 mL/min/{1.73_m2} Normal >60 [facility] Comment on above: Result Comment: mL/m in/1.73m2 CKD-EPI Creatinine Equation (2020) Performed By: #### L 100.0100, L500.2500 ####[facility] [address] [place], [address] Glucose [Mass/Vol] 148 mg/dL High 70-99 [facility] Comment on above: Performed By: #### L 100.0100, L500.2500 ####[facility] [address] [place], [address] Potassium [Moles/Vol] 4.1 mmol/L Normal 3.3-5.1 [facility] Comment on above: Performed By: #### L 100.0100, L500.2500 ####[facility] [address] [place], [address] Sodium [Moles/Vol] 138 mmol/L Normal 133-145 [facility] Comment on above: Performed By: #### L 100.0100, L500.2500 ####[facility] [address] [place], [address] Urea nitrogen [Mass/Vol] 16 mg/dL Normal 4-19 [facility] Comment on above: Performed By: #### L 100.0100, L500.2500 ####[facility] [address] [place], [address] Basophil percentageOrdered B y: Alonso Conteok on 05-01-2025 Basophils/100 WBC (Bld) 0.6 % 0-1 [facility] Bedside Glucoseon 05-01-2025 FINGERSTICK GLU 231 mg/dL High 74-106 [facility] Comment on above: Result Comment: TORRES GEMENT OF PATIENT CARE PER NURSING PROTOCOL Performed By: #### L 501.080 ####[facility] [address] [place], [address] FINGERSTICK GLU 213 mg/dL High 74-106 [facility] Comment on above: Result Comment: TORRES GEMENT OF PATIENT CARE PER NURSING PROTOCOL Performed By: #### L 501.080 ####[facility] [address] [place], [address] FINGERSTICK GLU 136 mg/dL High 74-106 [facility] Comment on above: Result Comment: TORRES FRANKLIN OF PATIENT CARE PER NURSING PROTOCOL Performed By: #### L 501.080 ####[facility] [address] [place], [address] CBC W/Diff, Automatedon 06- 0-2024 Absolute Lymph 1.34 X10 3/uL Normal 0.83-4.51 [facility] Comment on above: Performed By: #### L 100.0100, L500.2500 ####[facility] [address] [place], [address] Absolute Neut 3.0 X10 3/uL Normal 2.0-7.7 [facility] Comment on above: Performed By: #### L 100.0100, L500.2500 ####[facility] [address] [place], [address] Basophils/100 WBC (Bld) 0.6 % Normal 0-1 [facility] Comment on above: Performed By: #### L 100.0100, L500.2500 ####[facility] [address] [place], [address] Eosinophils/100 WBC (Bld) 4.0 % Normal 0-5 [facility] Comment on above: Performed By: #### L 100.0100, L500.2500 ####[facility] [address] [place], [address] Erythrocyte distribution width (RBC) [Ratio] 13.4 % Normal 11.6-14.6 [facility] Comment on above: Performed By: #### L 100.0100, L500.2500 ####[facility] [address] [place], [address] Hematocrit (Bld) [Volume fraction] 28.6 % Low 37-47 [facility] Comment on above: Performed By: #### L 100.0100, L500.2500 ####[facility] [address] [place], [address] Hemoglobin (Bld) [Mass/Vol] 9.5 g/dL Low 12.0-15.0 [facility] Comment on above: Performed By: #### L 100.0100, L500.2500 ####[facility] [address] [place], [address] IG% 0.400 Normal 0.0-0.9 [facility] Comment on above: Result Comment: IG% - Immature Granulocytes (promyelocytes, myelocytes andmetamyelocytes) > 1% indicates that a LEFT SHIFT is Present. Performed By: #### L 100.0100, L500.2500 ####[facility] [address] [place], [address] Lymphocytes/100 WBC (Bld) 25.5 % Normal 19-41 [facility] Comment on above: Performed By: #### L 100.0100, L500.2500 ####[facility] [address] [place], [address] MCH (RBC) [Entitic mass] 31.1 pg Normal 27.0-32.0 [facility] Comment on above: Performed By: #### L 100.0100, L500.2500 ####[facility] [address] [place], [address] MCHC (RBC) [Mass/Vol] 33.2 g/dL Normal 32-36 [facility] Comment on above: Performed By: #### L 100.0100, L500.2500 ####[facility] [address] [place], [address] MCV (RBC) [Entitic vol] 93.8 fL Normal 81-99 [facility] Comment on above: Performed By: #### L 100.0100, L500.2500 ####[facility] [address] [place], [address] Monocytes/100 WBC (Bld) 12.0 % High 0-10 [facility] Comment on above: Performed By: #### L 100.0100, L500.2500 ####[facility] [address] [place], [address] Neutrophils/100 WBC (Bld) 57.5 % Normal 47-70 [facility] Comment on above: Performed By: #### L 100.0100, L500.2500 ####[facility] [address] [place], [address] Nucleated RBC (Bld) [#/Vol] 0 10*3/uL Normal 0-5 [facility] Comment on above: Performed By: #### L 100.0100, L500.2500 ####[facility] [address] [place], [address] Platelet mean volume (Bld) [Entitic vol] 10.2 fL Normal 6.2-12.0 [facility] Comment on above: Performed By: #### L 100.0100, L500.2500 ####[facility] [address] [place], [address] Platelets (Bld) [#/Vol] 207 10*3/uL Normal 150-450 [facility] Comment on above: Performed By: #### L 100.0100, L500.2500 ####[facility] [address] [place], [address] RBC (Bld) [#/Vol] 3.05 10*6/uL Low 4.2-5.4 [facility] Comment on above: Performed By: #### L 100.0100, L500.2500 ####[facility] [address] [place], [address] RDW SD 45.9 fl High 35.1-43.9 [facility] Comment on above: Performed By: #### L 100.0100, L500.2500 ####[facility] [address] [place], [address] WBC (Bld) [#/Vol] 5.3 10*3/uL Normal 4.4-11.0 [facility] Comment on above: Performed By: #### L 100.0100, L500.2500 ####[facility] [address] [place], [address] Carbon dioxide, total [Moles /volume] in Central venous bloodOrdered By: Alonso Marte on 05-01-2025 CO2 [Moles/Vol] 24.5 mmol/L 21.0-32.0 [facility] Chloride assayOrdered By: Rm Marte on 05-01-2025 Chloride [Moles/Vol] 104 mmol/L 98-108 [facility] Eosinophil percentageOrdered By: Alonso Marte on 05-01-2025 Eosinophils/100 WBC (Bld) 4.0 % 0-5 [facility] Erythrocyte distribution wid th ratioOrdered By: Alonso Marte on 05-01-2025 Erythrocyte distribution width (RBC) [Ratio] 13.4 % 11.6-14.6 [facility] Erythrocyte distribution wid th standard deviationOrdered By: Alonso Marte on 05-01-2025 Erythrocyte distribution width (RBC) [Ratio] 45.9 fl High 35.1-43.9 [facility] Glomerular filtration rate ( GFR) estimation/1.73 sq m using serum, plasma, or whole bOrdered By: Alonso Marte on 05-01-2025 GFR/1.73 sq M.predicted among non-blacks MDRD (S/P/Bld) [Vol rate/Area] 70 mL/min/{1.73_m2} >60 [facility] Comment on above: mL/min/1.73m2 CKD-EP I Creatinine Equation (2020) Hematocrit Auto (Bld) [Volum e fraction]Ordered By: Alonso Marte on 05-01-2025 Hematocrit (Bld) [Volume fraction] 28.6 % Low 37-47 [facility] Hemoglobin measurementOrdere d By: Alonso Marte on 05-01-2025 Hemoglobin (Bld) [Mass/Vol] 9.5 g/dL Low 12.0-15.0 [facility] Immature granulocytes/100 WB C Auto (Bld)Ordered By: Alonso Marte on 05-01-2025 Immature granulocytes/100 WBC (Bld) 0.400 % 0.0-0.9 [facility] Comment on above: IG% - Immature Granu locytes (promyelocytes, myelocytes and metamyelocytes) > 1% indicates that a LEFT SHIFT is Present. MCV (mean corpuscular volume ) determinationOrdered By: Alonso Marte on 05-01-2025 MCV (RBC) [Entitic vol] 93.8 fL 81-99 [facility] Mean corpuscular hemoglobin (MCH) determinationOrdered By: Alonso Marte on 05-01-2025 MCH (RBC) [Entitic mass] 31.1 pg 27.0-32.0 [facility] Mean corpuscular hemoglobin concentration (MCHC) determinationOrdered By: Alonso Marte on 05-01-2025 MCHC (RBC) [Mass/Vol] 33.2 g/dL 32-36 [facility] Mean platelet volume determi nationOrdered By: Alonso Marte on 05-01-2025 Platelet mean volume (Bld) [Entitic vol] 10.2 fL 6.2-12.0 [facility] Monocyte percentageOrdered B y: Alonso Marte on 05-01-2025 Monocytes/100 WBC (Bld) 12.0 % High 0-10 [facility] Neutrophil percentageOrdered By: Alonso Marte on 05-01-2025 Neutrophils/100 WBC (Bld) 57.5 % 47-70 [facility] Nucleated red blood cell per centageOrdered By: Alonso Marte on 05-01-2025 Nucleated RBC/100 WBC (Bld) [Ratio] 0 % 0-5 [facility] Platelet countOrdered By: Rm Marte on 05-01-2025 Platelets (Bld) [#/Vol] 207 10*3/uL 150-450 [facility] Potassium measurement (mass/ volume)Ordered By: Alonso Marte on 05-01-2025 Potassium (Unsp spec) [Mass/Vol] 4.1 mmol/L 3.3-5.1 [facility] RBC Auto (Bld) [#/Vol]Ordere d By: Alonso Marte on 05-01-2025 RBC (Bld) [#/Vol] 3.05 10*6/uL Low 4.2-5.4 [facility] Serum creatinine measurement (mass/volume)Ordered By: Alonso Marte on 05-01-2025 Creatinine [Mass/Vol] 0.88 mg/dL 0.70-1.20 [facility] Serum glucose measurement (m ass/volume)Ordered By: Alonso Marte on 05-01-2025 Glucose [Mass/Vol] 148 mg/dL High 70-99 [facility] Serum or plasma calcium loco urement (mass/volume)Ordered By: Alonso Marte on 05-01-2025 Calcium [Mass/Vol] 8.7 mg/dL 7.6-11.0 [facility] Serum or plasma urea nitroge n measurement (mass/volume)Ordered By: Alonso Marte on 05-01-2025 Urea nitrogen [Mass/Vol] 16 mg/dL 4-19 [facility] Sodium levelOrdered By: Alonso Marte on 05-01-2025 Sodium [Moles/Vol] 138 mmol/L 133-145 [facility] White blood cell (WBC) count Ordered By: Alonso Estuardo on 05-01-2025 WBC (Bld) [#/Vol] 5.3 10*3/uL 4.4-11.0 [facility] Basic Metabolic Profile (BMP )on 04-30-2025 BUN/CRE 16.8 RATIO Normal 10-20 [facility] Comment on above: Performed By: #### L 500.2500, L100.0100 ####[facility] [address] [place], [address] Calcium [Mass/Vol] 8.7 mg/dL Normal 7.6-11.0 [facility] Comment on above: Performed By: #### L 500.2500, L100.0100 ####[facility] [address] [place], [address] Chloride [Moles/Vol] 105 mmol/L Normal 98-108 [facility] Comment on above: Performed By: #### L 500.2500, L100.0100 ####[facility] [address] [place], [address] CO2 [Moles/Vol] 25.1 mmol/L Normal 21.0-32.0 [facility] Comment on above: Performed By: #### L 500.2500, L100.0100 ####[facility] [address] [place], [address] Creatinine [Mass/Vol] 0.94 mg/dL Normal 0.70-1.20 [facility] Comment on above: Performed By: #### L 500.2500, L100.0100 ####[facility] [address] [place], [address] ECRCL 52.06 ml/min Normal 50-250 [facility] Comment on above: Performed By: #### L 500.2500, L100.0100 ####[facility] [address] [place], [address] GAP 9 Normal 5-15 [facility] Comment on above: Performed By: #### L 500.2500, L100.0100 ####[facility] [address] [place], [address] GFR/1.73 sq M.predicted among non-blacks MDRD (S/P/Bld) [Vol rate/Area] 65 mL/min/{1.73_m2} Normal >60 [facility] Comment on above: Result Comment: mL/m in/1.73m2 CKD-EPI Creatinine Equation (2020) Performed By: #### L 500.2500, L100.0100 ####[facility] [address] [place], [address] Glucose [Mass/Vol] 142 mg/dL High 70-99 [facility] Comment on above: Performed By: #### L 500.2500, L100.0100 ####[facility] [address] [place], [address] Potassium [Moles/Vol] 4.1 mmol/L Normal 3.3-5.1 [facility] Comment on above: Result Comment: Hemo lysis present, Results??could be affected.?? Performed By: #### L 500.2500, L100.0100 ####[facility] [address] [place], [address] Sodium [Moles/Vol] 139 mmol/L Normal 133-145 [facility] Comment on above: Performed By: #### L 500.2500, L100.0100 ####[facility] [address] [place], [address] Urea nitrogen [Mass/Vol] 16 mg/dL Normal 4-19 [facility] Comment on above: Performed By: #### L 500.2500, L100.0100 ####[facility] [address] [place], [address] Bedside Glucoseon 04-30-2025 FINGERSTICK GLU 188 mg/dL High 74-106 [facility] Comment on above: Result Comment: TORRES GEMENT OF PATIENT CARE PER NURSING PROTOCOL Performed By: #### L 501.080 ####[facility] [address] [place], [address] FINGERSTICK GLU 132 mg/dL High 74-106 [facility] Comment on above: Result Comment: TORRES GEMENT OF PATIENT CARE PER NURSING PROTOCOL Performed By: #### L 501.080 ####[facility] [address] [place], [address] CBC W/Diff, Automatedon 06-0 Absolute Lymph 1.82 X10 3/uL Normal 0.83-4.51 [facility] Comment on above: Performed By: #### L 500.2500, L100.0100 ####[facility] [address] [place], [address] Absolute Neut 3.6 X10 3/uL Normal 2.0-7.7 [facility] Comment on above: Performed By: #### L 500.2500, L100.0100 ####[facility] [address] [place], [address] Basophils/100 WBC (Bld) 0.5 % Normal 0-1 [facility] Comment on above: Performed By: #### L 500.2500, L100.0100 ####[facility] [address] [place], [address] Eosinophils/100 WBC (Bld) 4.4 % Normal 0-5 [facility] Comment on above: Performed By: #### L 500.2500, L100.0100 ####[facility] [address] [place], [address] Erythrocyte distribution width (RBC) [Ratio] 13.3 % Normal 11.6-14.6 [facility] Comment on above: Performed By: #### L 500.2500, L100.0100 ####[facility] [address] [place], [address] Hematocrit (Bld) [Volume fraction] 29.9 % Low 37-47 [facility] Comment on above: Performed By: #### L 500.2500, L100.0100 ####[facility] [address] [place], [address] Hemoglobin (Bld) [Mass/Vol] 9.8 g/dL Low 12.0-15.0 [facility] Comment on above: Performed By: #### L 500.2500, L100.0100 ####[facility] [address] [place], [address] IG% 0.500 Normal 0.0-0.9 [facility] Comment on above: Result Comment: IG% - Immature Granulocytes (promyelocytes, myelocytes andmetamyelocytes) > 1% indicates that a LEFT SHIFT is Present. Performed By: #### L 500.2500, L100.0100 ####[facility] [address] [place], [address] Lymphocytes/100 WBC (Bld) 28.3 % Normal 19-41 [facility] Comment on above: Performed By: #### L 500.2500, L100.0100 ####[facility] [address] [place], [address] MCH (RBC) [Entitic mass] 31.0 pg Normal 27.0-32.0 [facility] Comment on above: Performed By: #### L 500.2500, L100.0100 ####[facility] [address] [place], [address] MCHC (RBC) [Mass/Vol] 32.8 g/dL Normal 32-36 [facility] Comment on above: Performed By: #### L 500.2500, L100.0100 ####[facility] [address] [place], [address] MCV (RBC) [Entitic vol] 94.6 fL Normal 81-99 [facility] Comment on above: Performed By: #### L 500.2500, L100.0100 ####[facility] [address] [place], [address] Monocytes/100 WBC (Bld) 10.9 % High 0-10 [facility] Comment on above: Performed By: #### L 500.2500, L100.0100 ####[facility] [address] [place], [address] Neutrophils/100 WBC (Bld) 55.4 % Normal 47-70 [facility] Comment on above: Performed By: #### L 500.2500, L100.0100 ####[facility] [address] [place], [address] Nucleated RBC (Bld) [#/Vol] 0 10*3/uL Normal 0-5 [facility] Comment on above: Performed By: #### L 500.2500, L100.0100 ####[facility] [address] [place], [address] Platelet mean volume (Bld) [Entitic vol] 10.4 fL Normal 6.2-12.0 [facility] Comment on above: Performed By: #### L 500.2500, L100.0100 ####[facility] [address] [place], [address] Platelets (Bld) [#/Vol] 212 10*3/uL Normal 150-450 [facility] Comment on above: Performed By: #### L 500.2500, L100.0100 ####[facility] [address] [place], [address] RBC (Bld) [#/Vol] 3.16 10*6/uL Low 4.2-5.4 [facility] Comment on above: Performed By: #### L 500.2500, L100.0100 ####[facility] [address] [place], [address] RDW SD 46.4 fl High 35.1-43.9 [facility] Comment on above: Performed By: #### L 500.2500, L100.0100 ####[facility] [address] [place], [address] WBC (Bld) [#/Vol] 6.4 10*3/uL Normal 4.4-11.0 [facility] Comment on above: Performed By: #### L 500.2500, L100.0100 ####[facility] [address] [place], [address] Basic Metabolic Profile (BMP )on 04-29-2025 BUN/CRE 15.0 RATIO Normal 10-20 [facility] Comment on above: Performed By: #### L 100.0100, L500.2500 ####[facility] [address] [place], [address] Calcium [Mass/Vol] 8.8 mg/dL Normal 7.6-11.0 [facility] Comment on above: Performed By: #### L 100.0100, L500.2500 ####[facility] [address] [place], [address] Chloride [Moles/Vol] 108 mmol/L Normal 98-108 [facility] Comment on above: Performed By: #### L 100.0100, L500.2500 ####[facility] [address] [place], [address] CO2 [Moles/Vol] 26.7 mmol/L Normal 21.0-32.0 [facility] Comment on above: Performed By: #### L 100.0100, L500.2500 ####[facility] [address] [place], [address] Creatinine [Mass/Vol] 0.94 mg/dL Normal 0.70-1.20 [facility] Comment on above: Performed By: #### L 100.0100, L500.2500 ####[facility] [address] [place], [address] ECRCL 52.06 ml/min Normal 50-250 [facility] Comment on above: Performed By: #### L 100.0100, L500.2500 ####[facility] [address] [place], [address] GAP 7 Normal 5-15 [facility] Comment on above: Performed By: #### L 100.0100, L500.2500 ####[facility] [address] [place], [address] GFR/1.73 sq M.predicted among non-blacks MDRD (S/P/Bld) [Vol rate/Area] 64 mL/min/{1.73_m2} Normal >60 [facility] Comment on above: Result Comment: mL/m in/1.73m2 CKD-EPI Creatinine Equation (2020) Performed By: #### L 100.0100, L500.2500 ####[facility] [address] [place], [address] Glucose [Mass/Vol] 138 mg/dL High 70-99 [facility] Comment on above: Performed By: #### L 100.0100, L500.2500 ####[facility] [address] [place], [address] Potassium [Moles/Vol] 4.4 mmol/L Normal 3.3-5.1 [facility] Comment on above: Performed By: #### L 100.0100, L500.2500 ####[facility] [address] [place], [address] Sodium [Moles/Vol] 142 mmol/L Normal 133-145 [facility] Comment on above: Performed By: #### L 100.0100, L500.2500 ####[facility] [address] [place], [address] Urea nitrogen [Mass/Vol] 14 mg/dL Normal 4-19 [facility] Comment on above: Performed By: #### L 100.0100, L500.2500 ####[facility] [address] [place], [address] Bedside Glucoseon 04-29-2025 FINGERSTICK GLU 132 mg/dL High 74-106 [facility] Comment on above: Result Comment: TORRES FRANKLIN OF PATIENT CARE PER NURSING PROTOCOL Performed By: #### L 501.080 ####[facility] [address] [place], [address] CBC W/Diff, Automatedon 06-0 8-2024 Absolute Lymph 1.45 X10 3/uL Normal 0.83-4.51 [facility] Comment on above: Performed By: #### L 100.0100, L500.2500 ####[facility] [address] [place], [address] Absolute Neut 3.3 X10 3/uL Normal 2.0-7.7 [facility] Comment on above: Performed By: #### L 100.0100, L500.2500 ####[facility] [address] [place], [address] Basophils/100 WBC (Bld) 0.5 % Normal 0-1 [facility] Comment on above: Performed By: #### L 100.0100, L500.2500 ####[facility] [address] [place], [address] Eosinophils/100 WBC (Bld) 4.5 % Normal 0-5 [facility] Comment on above: Performed By: #### L 100.0100, L500.2500 ####[facility] [address] [place], [address] Erythrocyte distribution width (RBC) [Ratio] 13.5 % Normal 11.6-14.6 [facility] Comment on above: Performed By: #### L 100.0100, L500.2500 ####[facility] [address] [place], [address] Hematocrit (Bld) [Volume fraction] 28.7 % Low 37-47 [facility] Comment on above: Performed By: #### L 100.0100, L500.2500 ####[facility] [address] [place], [address] Hemoglobin (Bld) [Mass/Vol] 9.5 g/dL Low 12.0-15.0 [facility] Comment on above: Performed By: #### L 100.0100, L500.2500 ####[facility] [address] [place], [address] IG% 0.300 Normal 0.0-0.9 [facility] Comment on above: Result Comment: IG% - Immature Granulocytes (promyelocytes, myelocytes andmetamyelocytes) > 1% indicates that a LEFT SHIFT is Present. Performed By: #### L 100.0100, L500.2500 ####[facility] [address] [place], [address] Lymphocytes/100 WBC (Bld) 25.3 % Normal 19-41 [facility] Comment on above: Performed By: #### L 100.0100, L500.2500 ####[facility] [address] [place], [address] MCH (RBC) [Entitic mass] 31.5 pg Normal 27.0-32.0 [facility] Comment on above: Performed By: #### L 100.0100, L500.2500 ####[facility] [address] [place], [address] MCHC (RBC) [Mass/Vol] 33.1 g/dL Normal 32-36 [facility] Comment on above: Performed By: #### L 100.0100, L500.2500 ####[facility] [address] [place], [address] MCV (RBC) [Entitic vol] 95.0 fL Normal 81-99 [facility] Comment on above: Performed By: #### L 100.0100, L500.2500 ####[facility] [address] [place], [address] Monocytes/100 WBC (Bld) 11.2 % High 0-10 [facility] Comment on above: Performed By: #### L 100.0100, L500.2500 ####[facility] [address] [place], [address] Neutrophils/100 WBC (Bld) 58.2 % Normal 47-70 [facility] Comment on above: Performed By: #### L 100.0100, L500.2500 ####[facility] [address] [place], [address] Nucleated RBC (Bld) [#/Vol] 0 10*3/uL Normal 0-5 [facility] Comment on above: Performed By: #### L 100.0100, L500.2500 ####[facility] [address] [place], [address] Platelet mean volume (Bld) [Entitic vol] 9.9 fL Normal 6.2-12.0 [facility] Comment on above: Performed By: #### L 100.0100, L500.2500 ####[facility] [address] [place], [address] Platelets (Bld) [#/Vol] 193 10*3/uL Normal 150-450 [facility] Comment on above: Performed By: #### L 100.0100, L500.2500 ####[facility] [address] [place], [address] RBC (Bld) [#/Vol] 3.02 10*6/uL Low 4.2-5.4 [facility] Comment on above: Performed By: #### L 100.0100, L500.2500 ####[facility] [address] [place], [address] RDW SD 46.9 fl High 35.1-43.9 [facility] Comment on above: Performed By: #### L 100.0100, L500.2500 ####[facility] [address] [place], [address] WBC (Bld) [#/Vol] 5.7 10*3/uL Normal 4.4-11.0 [facility] Comment on above: Performed By: #### L 100.0100, L500.2500 ####[facility] [address] [place], [address] Basic Metabolic Profile (BMP )on 04-28-2025 BUN/CRE 15.9 RATIO Normal 10-20 [facility] Comment on above: Performed By: #### L 100.0100, L500.2500 ####[facility] [address] [place], [address] Calcium [Mass/Vol] 8.7 mg/dL Normal 7.6-11.0 [facility] Comment on above: Performed By: #### L 100.0100, L500.2500 ####[facility] [address] [place], [address] Chloride [Moles/Vol] 105 mmol/L Normal 98-108 [facility] Comment on above: Performed By: #### L 100.0100, L500.2500 ####[facility] [address] [place], [address] CO2 [Moles/Vol] 25.9 mmol/L Normal 21.0-32.0 [facility] Comment on above: Performed By: #### L 100.0100, L500.2500 ####[facility] [address] [place], [address] Creatinine [Mass/Vol] 0.97 mg/dL Normal 0.70-1.20 [facility] Comment on above: Performed By: #### L 100.0100, L500.2500 ####[facility] [address] [place], [address] ECRCL 50.45 ml/min Normal 50-250 [facility] Comment on above: Performed By: #### L 100.0100, L500.2500 ####[facility] [address] [place], [address] GAP 9 Normal 5-15 [facility] Comment on above: Performed By: #### L 100.0100, L500.2500 ####[facility] [address] [place], [address] GFR/1.73 sq M.predicted among non-blacks MDRD (S/P/Bld) [Vol rate/Area] 62 mL/min/{1.73_m2} Normal >60 [facility] Comment on above: Result Comment: mL/m in/1.73m2 CKD-EPI Creatinine Equation (2020) Performed By: #### L 100.0100, L500.2500 ####[facility] [address] [place], [address] Glucose [Mass/Vol] 140 mg/dL High 70-99 [facility] Comment on above: Performed By: #### L 100.0100, L500.2500 ####[facility] [address] [place], [address] Potassium [Moles/Vol] 3.8 mmol/L Normal 3.3-5.1 [facility] Comment on above: Performed By: #### L 100.0100, L500.2500 ####[facility] [address] [place], [address] Sodium [Moles/Vol] 140 mmol/L Normal 133-145 [facility] Comment on above: Performed By: #### L 100.0100, L500.2500 ####[facility] [address] [place], [address] Urea nitrogen [Mass/Vol] 15 mg/dL Normal 4-19 [facility] Comment on above: Performed By: #### L 100.0100, L500.2500 ####[facility] [address] [place], [address] Bedside Glucoseon 04-28-2025 FINGERSTICK GLU 155 mg/dL High 74-106 [facility] Comment on above: Result Comment: TORRES GEMENT OF PATIENT CARE PER NURSING PROTOCOL Performed By: #### L 501.080 ####[facility] [address] [place], [address] FINGERSTICK GLU 120 mg/dL High 74-106 [facility] Comment on above: Result Comment: TORRES GEMENT OF PATIENT CARE PER NURSING PROTOCOL Performed By: #### L 501.080 ####[facility] [address] [place], [address] CBC W/Diff, Automatedon Absolute Lymph 1.57 X10 3/uL Normal 0.83-4.51 [facility] Comment on above: Performed By: #### L 100.0100, L500.2500 ####[facility] [address] [place], [address] Absolute Neut 3.1 X10 3/uL Normal 2.0-7.7 [facility] Comment on above: Performed By: #### L 100.0100, L500.2500 ####[facility] [address] [place], [address] Basophils/100 WBC (Bld) 0.5 % Normal 0-1 [facility] Comment on above: Performed By: #### L 100.0100, L500.2500 ####[facility] [address] [place], [address] Eosinophils/100 WBC (Bld) 3.7 % Normal 0-5 [facility] Comment on above: Performed By: #### L 100.0100, L500.2500 ####[facility] [address] [place], [address] Erythrocyte distribution width (RBC) [Ratio] 13.3 % Normal 11.6-14.6 [facility] Comment on above: Performed By: #### L 100.0100, L500.2500 ####[facility] [address] [place], [address] Hematocrit (Bld) [Volume fraction] 27.9 % Low 37-47 [facility] Comment on above: Performed By: #### L 100.0100, L500.2500 ####[facility] [address] [place], [address] Hemoglobin (Bld) [Mass/Vol] 9.1 g/dL Low 12.0-15.0 [facility] Comment on above: Performed By: #### L 100.0100, L500.2500 ####[facility] [address] [place], [address] IG% 0.200 Normal 0.0-0.9 [facility] Comment on above: Result Comment: IG% - Immature Granulocytes (promyelocytes, myelocytes andmetamyelocytes) > 1% indicates that a LEFT SHIFT is Present. Performed By: #### L 100.0100, L500.2500 ####[facility] [address] [place], [address] Lymphocytes/100 WBC (Bld) 28.7 % Normal 19-41 [facility] Comment on above: Performed By: #### L 100.0100, L500.2500 ####[facility] [address] [place], [address] MCH (RBC) [Entitic mass] 30.8 pg Normal 27.0-32.0 [facility] Comment on above: Performed By: #### L 100.0100, L500.2500 ####[facility] [address] [place], [address] MCHC (RBC) [Mass/Vol] 32.6 g/dL Normal 32-36 [facility] Comment on above: Performed By: #### L 100.0100, L500.2500 ####[facility] [address] [place], [address] MCV (RBC) [Entitic vol] 94.6 fL Normal 81-99 [facility] Comment on above: Performed By: #### L 100.0100, L500.2500 ####[facility] [address] [place], [address] Monocytes/100 WBC (Bld) 10.1 % High 0-10 [facility] Comment on above: Performed By: #### L 100.0100, L500.2500 ####[facility] [address] [place], [address] Neutrophils/100 WBC (Bld) 56.8 % Normal 47-70 [facility] Comment on above: Performed By: #### L 100.0100, L500.2500 ####[facility] [address] [place], [address] Nucleated RBC (Bld) [#/Vol] 0 10*3/uL Normal 0-5 [facility] Comment on above: Performed By: #### L 100.0100, L500.2500 ####[facility] [address] [place], [address] Platelet mean volume (Bld) [Entitic vol] 10.3 fL Normal 6.2-12.0 [facility] Comment on above: Performed By: #### L 100.0100, L500.2500 ####[facility] [address] [place], [address] Platelets (Bld) [#/Vol] 199 10*3/uL Normal 150-450 [facility] Comment on above: Performed By: #### L 100.0100, L500.2500 ####[facility] [address] [place], [address] RBC (Bld) [#/Vol] 2.95 10*6/uL Low 4.2-5.4 [facility] Comment on above: Performed By: #### L 100.0100, L500.2500 ####[facility] [address] [place], [address] RDW SD 45.7 fl High 35.1-43.9 [facility] Comment on above: Performed By: #### L 100.0100, L500.2500 ####[facility] [address] [place], [address] WBC (Bld) [#/Vol] 5.5 10*3/uL Normal 4.4-11.0 [facility] Comment on above: Performed By: #### L 100.0100, L500.2500 ####[facility] [facility] [address] [place], [address] Basic Metabolic Profile (BMP )on 04-27-2025 BUN/CRE 12.8 RATIO Normal 10-20 [facility] Comment on above: Performed By: #### L 500.2500, L100.0100 ####[facility] [address] [place], [address] Calcium [Mass/Vol] 8.7 mg/dL Normal 7.6-11.0 [facility] Comment on above: Performed By: #### L 500.2500, L100.0100 ####[facility] [address] [place], [address] Chloride [Moles/Vol] 107 mmol/L Normal 98-108 [facility] Comment on above: Performed By: #### L 500.2500, L100.0100 ####[facility] [address] [place], [address] CO2 [Moles/Vol] 25.1 mmol/L Normal 21.0-32.0 [facility] Comment on above: Performed By: #### L 500.2500, L100.0100 ####[facility] [address] [place], [address] Creatinine [Mass/Vol] 0.95 mg/dL Normal 0.70-1.20 [facility] Comment on above: Performed By: #### L 500.2500, L100.0100 ####[facility] [address] [place], [address] ECRCL 51.52 ml/min Normal 50-250 [facility] Comment on above: Performed By: #### L 500.2500, L100.0100 ####[facility] [address] [place], [address] GAP 9 Normal 5-15 [facility] Comment on above: Performed By: #### L 500.2500, L100.0100 ####[facility] [address] [place], [address] GFR/1.73 sq M.predicted among non-blacks MDRD (S/P/Bld) [Vol rate/Area] 63 mL/min/{1.73_m2} Normal >60 [facility] Comment on above: Result Comment: mL/m in/1.73m2 CKD-EPI Creatinine Equation (2020) Performed By: #### L 500.2500, L100.0100 ####[facility] [address] [place], [address] Glucose [Mass/Vol] 139 mg/dL High 70-99 [facility] Comment on above: Performed By: #### L 500.2500, L100.0100 ####[facility] [address] [place], [address] Potassium [Moles/Vol] 3.9 mmol/L Normal 3.3-5.1 [facility] Comment on above: Performed By: #### L 500.2500, L100.0100 ####[facility] [address] [place], [address] Sodium [Moles/Vol] 141 mmol/L Normal 133-145 [facility] Comment on above: Performed By: #### L 500.2500, L100.0100 ####[facility] [address] [place], [address] Urea nitrogen [Mass/Vol] 12 mg/dL Normal 4-19 [facility] Comment on above: Performed By: #### L 500.2500, L100.0100 ####[facility] [address] [place], [address] Bedside Glucoseon --2024 FINGERSTICK GLU 134 mg/dL High 74-106 [facility] Comment on above: Result Comment: TORRES GEMENT OF PATIENT CARE PER NURSING PROTOCOL Performed By: #### L 501.080 ####[facility] [address] [place], [address] FINGERSTICK GLU 158 mg/dL High 74-106 [facility] Comment on above: Result Comment: TORRES GEMENT OF PATIENT CARE PER NURSING PROTOCOL Performed By: #### L 501.080 ####[facility] [address] [place], [address] CBC W/Diff, Automatedon 06-0 Absolute Lymph 1.65 X10 3/uL Normal 0.83-4.51 [facility] Comment on above: Performed By: #### L 500.2500, L100.0100 ####[facility] [address] [place], [address] Absolute Neut 2.8 X10 3/uL Normal 2.0-7.7 [facility] Comment on above: Performed By: #### L 500.2500, L100.0100 ####[facility] [address] [place], [address] Basophils/100 WBC (Bld) 0.4 % Normal 0-1 [facility] Comment on above: Performed By: #### L 500.2500, L100.0100 ####[facility] [address] [place], [address] Eosinophils/100 WBC (Bld) 3.2 % Normal 0-5 [facility] Comment on above: Performed By: #### L 500.2500, L100.0100 ####[facility] [address] [place], [address] Erythrocyte distribution width (RBC) [Ratio] 13.4 % Normal 11.6-14.6 [facility] Comment on above: Performed By: #### L 500.2500, L100.0100 ####[facility] [address] [place], [address] Hematocrit (Bld) [Volume fraction] 27.8 % Low 37-47 [facility] Comment on above: Performed By: #### L 500.2500, L100.0100 ####[facility] [address] [place], [address] Hemoglobin (Bld) [Mass/Vol] 9.0 g/dL Low 12.0-15.0 [facility] Comment on above: Performed By: #### L 500.2500, L100.0100 ####[facility] [address] [place], [address] IG% 0.400 Normal 0.0-0.9 [facility] Comment on above: Result Comment: IG% - Immature Granulocytes (promyelocytes, myelocytes andmetamyelocytes) > 1% indicates that a LEFT SHIFT is Present. Performed By: #### L 500.2500, L100.0100 ####[facility] [address] [place], [address] Lymphocytes/100 WBC (Bld) 31.1 % Normal 19-41 [facility] Comment on above: Performed By: #### L 500.2500, L100.0100 ####[facility] [address] [place], [address] MCH (RBC) [Entitic mass] 30.8 pg Normal 27.0-32.0 [facility] Comment on above: Performed By: #### L 500.2500, L100.0100 ####[facility] [address] [place], [address] MCHC (RBC) [Mass/Vol] 32.4 g/dL Normal 32-36 [facility] Comment on above: Performed By: #### L 500.2500, L100.0100 ####[facility] [address] [place], [address] MCV (RBC) [Entitic vol] 95.2 fL Normal 81-99 [facility] Comment on above: Performed By: #### L 500.2500, L100.0100 ####[facility] [address] [place], [address] Monocytes/100 WBC (Bld) 12.2 % High 0-10 [facility] Comment on above: Performed By: #### L 500.2500, L100.0100 ####[facility] [address] [place], [address] Neutrophils/100 WBC (Bld) 52.7 % Normal 47-70 [facility] Comment on above: Performed By: #### L 500.2500, L100.0100 ####[facility] [address] [place], [address] Nucleated RBC (Bld) [#/Vol] 0 10*3/uL Normal 0-5 [facility] Comment on above: Performed By: #### L 500.2500, L100.0100 ####[facility] [address] [place], [address] Platelet mean volume (Bld) [Entitic vol] 9.9 fL Normal 6.2-12.0 [facility] Comment on above: Performed By: #### L 500.2500, L100.0100 ####[facility] [address] [place], [address] Platelets (Bld) [#/Vol] 202 10*3/uL Normal 150-450 [facility] Comment on above: Performed By: #### L 500.2500, L100.0100 ####[facility] [address] [place], [address] RBC (Bld) [#/Vol] 2.92 10*6/uL Low 4.2-5.4 [facility] Comment on above: Performed By: #### L 500.2500, L100.0100 ####[facility] [address] [place], [address] RDW SD 46.8 fl High 35.1-43.9 [facility] Comment on above: Performed By: #### L 500.2500, L100.0100 ####[facility] [address] [place], [address] WBC (Bld) [#/Vol] 5.3 10*3/uL Normal 4.4-11.0 [facility] Comment on above: Performed By: #### L 500.2500, L100.0100 ####[facility] [address] [place], [address] Bedside Glucoseon 04-26-2025 FINGERSTICK GLU 163 mg/dL High 74-106 [facility] Comment on above: Result Comment: TORRES GEMENT OF PATIENT CARE PER NURSING PROTOCOL Performed By: #### L 501.080 ####[facility] [address] [place], [address] FINGERSTICK GLU 147 mg/dL High 74-106 [facility] Comment on above: Result Comment: TORRES GEMENT OF PATIENT CARE PER NURSING PROTOCOL Performed By: #### L 501.080 ####[facility] [address] [place], [address] Bedside Glucoseon 04-25-2025 FINGERSTICK GLU 200 mg/dL High 74-106 [facility] Comment on above: Result Comment: TORRES GEMENT OF PATIENT CARE PER NURSING PROTOCOL Performed By: #### L 501.080 ####[facility] [address] [place], [address] FINGERSTICK GLU 225 mg/dL High 74-106 [facility] Comment on above: Result Comment: TORRES GEMENT OF PATIENT CARE PER NURSING PROTOCOL Performed By: #### L 501.080 ####[facility] [address] [place], [place], [address] Colonoscopy Reporton Colonoscopy Report Normal [facility] EGD Reporton 04-25-2025 EGD Report Normal [facility] deOrdered By: Alonso Marte on 04-25-2025 Glucose [Mass/Vol] 200 mg/dL High 74-106 [facility] Glucose measurement at [facility] deOrdered By: Shan Lockett on 04-25-2025 Glucose [Mass/Vol] 225 mg/dL High 74-106 [facility] Comment on above: MANAGEMENT OF PATIEN T CARE PER NURSING PROTOCOL MR/POSTOP.ANEon 04-25-2025 MR/POSTOP.ANE Normal [facility] MR/HNSBSHOE8ul 04-25-2025 MR/POSTOPAN2 Normal [facility] Surgery Specimen Level Macrina 04-25-2025 Surgery Specimen Level IV Normal [facility] Comment on above: Performed By: #### P SUIV ####[facility] [address] [place], [address] Bedside Glucoseon 04-24-2025 FINGERSTICK GLU 128 mg/dL High -106 [facility] Comment on above: Result Comment: TORRES GEMENT OF PATIENT CARE PER NURSING PROTOCOL Performed By: #### L 501.080 ####[facility] [address] [place], [address] FINGERSTICK GLU 142 mg/dL High 74-106 [facility] Comment on above: Result Comment: TORRES GEMENT OF PATIENT CARE PER NURSING PROTOCOL Performed By: #### L 501.080 ####[facility] [address] [place], [address] Bedside Glucoseon 04-23-2025 FINGERSTICK GLU 166 mg/dL High -106 [facility] Comment on above: Result Comment: TORRES GEMENT OF PATIENT CARE PER NURSING PROTOCOL Performed By: #### L 501.080 ####[facility] [address] [place], [address] FINGERSTICK GLU 197 mg/dL High 74-106 [facility] Comment on above: Result Comment: TORRES GEMENT OF PATIENT CARE PER NURSING PROTOCOL Performed By: #### L 501.080 ####[facility] [address] [place], [address] MR/PAT.ANEon 04-23-2025 MR/PAT.ANE Normal [facility] Bedside Glucoseon 04-22-2025 FINGERSTICK GLU 191 mg/dL High -106 [facility] Comment on above: Result Comment: TORRES GEMENT OF PATIENT CARE PER NURSING PROTOCOL Performed By: #### L 501.080 ####[facility] [address] [place], [address] FINGERSTICK GLU 170 mg/dL High [address] [place] [address] Comment on above: Result Comment: TORRES GEMENT OF PATIENT CARE PER NURSING PROTOCOL Performed By: #### L 501.080 ####[facility] [address] [place], [address] Calculated very low density lipoprotein (VLDL) cholesterol measurementOrdered By: Alonso Marte on 04-22-2025 Calculated very low density lipoprotein (VLDL) cholesterol measurement 33 mg/dL 5-40 [facility] Hemoglobin A1con 04-22-2025 HbA1c (Bld) [Mass fraction] 7.6 % High <=5.6 [facility] Comment on above: Result Comment: Norm al < 5.7 % Prediabetic 5.7 - 6.4 % Diabetic >or= 6.5 % Please note range changes. Performed By: #### L 501.9985, L500.4100 ####[facility] [address] [place], [place], [address] Hemoglobin A1c percentageOrd ered By: Alonso Marte on 04-22-2025 HbA1c (Bld) [Mass fraction] 7.6 % High <5.7 [facility] Comment on above: Normal < 5.7 % Predi abetic 5.7 - 6.4 % Diabetic >or= 6.5 % Please note range changes. LDL calc ser/plasOrdered By: Alonso Marte on 04-22-2025 Cholesterol in LDL [Mass/Vol] 31 mg/dL [facility] Comment on above: Jdfoijdcqm=012-332 m g/dL & Higher Tqjj=009 mg/dL or greater Lipid Profileon 04-22-2025 CHOL:HDL 3.76 Normal [facility] Comment on above: Performed By: #### L 501.9985, L500.4100 ####[facility] [address] [place], [place], [id number] Cholesterol [Mass/Vol] 88 mg/dL Normal <=200 [facility] Comment on above: Result Comment: Chol esterol level, Desirable <200 mg/dLBorderline high cholesterol 200-239 mg/dLHigh cholesterol >=240 mg/dLRecommendations of the NCEP Adult Treatment Panel for thefollowing risk-cutoff thresholds for the [place] Americanb[facility] and[facility] cancer centerulation. Performed By: #### L 501.9985, L500.4100 ####[facility] [address] [place], [place], [address] Cholesterol in HDL [Mass/Vol] 23 mg/dL Low [facility] Comment on above: Result Comment: [place]etsy onal Cholesterol Education Program (NCEP) guidelines:<40 mg/dL: Low HDL-cholesterol (major risk factor for CHD)>= 60 mg/dL: High HDL-cholesterol (negative risk factor forCHD)HDL-cholesterol is affected by a number of factors, e.g.smoking, exercise, hormones, sex and age. Performed By: #### L 501.9985, L500.4100 ####[facility] [address] [place], [address] Cholesterol in LDL [Mass/Vol] 31 mg/dL Normal [facility] Comment on above: Result Comment: Bord npkscf=994-114 mg/dL Higher Ykdv=755 mg/dL or greater Performed By: #### L 501.9985, L500.4100 ####[facility] [address] [place], [address] Cholesterol in VLDL [Mass/Vol] 33 mg/dL Normal 5-40 [facility] Comment on above: Performed By: #### L 501.9985, L500.4100 ####[facility] [address] [place], [address] Triglyceride [Mass/Vol] 166 mg/dL Normal [facility] Comment on above: Result Comment: The drugs N-Acetylcysteine and Metamizole may falselydepress this assay.Normal range: <150 mg/dLBorderline High: 150-199 mg/dLHigh: 200-499 mg/dLVery High: >500 mg/dL Performed By: #### L 501.9985, L500.4100 ####[facility] [address] [place], [address] Screening total cholesterol/ high density lipoprotein (HDL) cholesterol ratioOrdered By: Alonso Marte on 04-22-2025 Cholesterol.total/Chol esterol in HDL [Mass ratio] 3.76 {ratio} [facility] Serum or plasma cholesterol in HDL measurement (mass/volume)Ordered By: Alonso Marte on 04-22-2025 Cholesterol in HDL [Mass/Vol] 23 mg/dL Low >40 [facility] Comment on above: National Cholesterol Education Program (NCEP) guidelines:<40 mg/dL: Low HDL-cholesterol (major risk factor for CHD)>= 60 mg/dL: High HDL-cholesterol (negative risk factor for CHD)HDL-cholesterol is affected by a number of factors, e.g. smoking, exercise, hormones, sex and age. Serum or plasma cholesterol measurement (mass/volume)Ordered By: Alonso Marte on 04-22-2025 Cholesterol [Mass/Vol] 88 mg/dL <201 [facility] Comment on above: Cholesterol level, D esirable <200 mg/dLBorderline high cholesterol 200-239 mg/dLHigh cholesterol >=240 mg/dLRecommendations of the NCEP Adult Treatment Panel for the following risk-cutoff thresholds for the [place] population. Triglycerides measurementOrd ered By: Alonso Marte on 04-22-2025 Triglyceride [Mass/Vol] 166 mg/dL <199 [facility] Comment on above: The drugs N-Acetylcy steine and Metamizole may falsely depress this assay. Normal range: <150 mg/dLBorderline High: 150-199 mg/dLHigh: 200-499 mg/dLVery High: >500 mg/dL Absolute lymphocyte countOrd ered By: Alonso Marte on 04-21-2025 Lymphocytes Auto (Unsp spec) [#/Vol] 1.10 10*3/uL 0.83-4.51 [facility] Anion gap in Serum or Plasma Ordered By: Alonso Marte on 04-21-2025 Anion gap [Moles/Vol] 8 mmol/L 5-15 [facility] Automated lymphocyte count a s percentage of total leukocytesOrdered By: Alonso Marte on 04-21-2025 Lymphocytes/100 WBC Auto (Unsp spec) 18.6 % Low 19-41 [facility] BUN/creatinine ratioOrdered By: Alonso Marte on 04-21-2025 Urea nitrogen/Creatinine [Mass ratio] 15.0 mg/mg 10- [facility] Basic Metabolic Profile (BMP )on 04-21-2025 BUN/CRE 15.0 RATIO Normal - [facility] Comment on above: Performed By: #### L 100.0100, L500.2500 ####[facility] [address] [place], [address] Calcium [Mass/Vol] 9.0 mg/dL Normal 7.6-11.0 [facility] Comment on above: Performed By: #### L 100.0100, L500.2500 ####[facility] [address] [place], [address] Chloride [Moles/Vol] 107 mmol/L Normal 98-108 [facility] Comment on above: Performed By: #### L 100.0100, L500.2500 ####[facility] [address] [place], [address] CO2 [Moles/Vol] 27.7 mmol/L Normal 21.0-32.0 [facility] Comment on above: Performed By: #### L 100.0100, L500.2500 ####[facility] [address] [place], [address] Creatinine [Mass/Vol] 0.95 mg/dL Normal 0.70-1.20 [facility] Comment on above: Performed By: #### L 100.0100, L500.2500 ####[facility] [address] [place], [address] ECRCL 51.79 ml/min Normal 50-250 [facility] Comment on above: Performed By: #### L 100.0100, L500.2500 ####[facility] [address] [place], [address] GAP 8 Normal 5-15 [facility] Comment on above: Performed By: #### L 100.0100, L500.2500 ####[facility] [address] [place], [address] GFR/1.73 sq M.predicted among non-blacks MDRD (S/P/Bld) [Vol rate/Area] 64 mL/min/{1.73_m2} Normal >60 [facility] Comment on above: Result Comment: mL/m in/1.73m2 CKD-EPI Creatinine Equation (2020) Performed By: #### L 100.0100, L500.2500 ####[facility] [address] [place], [address] Glucose [Mass/Vol] 185 mg/dL High 70-99 [facility] Comment on above: Performed By: #### L 100.0100, L500.2500 ####[facility] [address] [place], [address] Potassium [Moles/Vol] 4.3 mmol/L Normal 3.3-5.1 [facility] Comment on above: Performed By: #### L 100.0100, L500.2500 ####[facility] [address] [place], [address] Sodium [Moles/Vol] 142 mmol/L Normal 133-145 [facility] Comment on above: Performed By: #### L 100.0100, L500.2500 ####[facility] [address] [place], [address] Urea nitrogen [Mass/Vol] 14 mg/dL Normal 4-19 [facility] Comment on above: Performed By: #### L 100.0100, L500.2500 ####[facility] [address] [place], [address] Basophil percentageOrdered B y: Alonso Marte on 04-21-2025 Basophils/100 WBC (Bld) 0.3 % 0-1 [facility] Bedside Glucoseon 04-21-2025 FINGERSTICK GLU 139 mg/dL High 74-106 [facility] Comment on above: Result Comment: TORRES GEMENT OF PATIENT CARE PER NURSING PROTOCOL Performed By: #### L 501.080 ####[facility] [address] [place], [address] FINGERSTICK GLU 165 mg/dL High 74-106 [facility] Comment on above: Result Comment: TORRES GEMENT OF PATIENT CARE PER NURSING PROTOCOL Performed By: #### L 501.080 ####[facility] [address] [place], [address] CBC W/Diff, Automatedon 05-3 -2024 Absolute Lymph 1.10 X10 3/uL Normal 0.83-4.51 [facility] Comment on above: Performed By: #### L 100.0100, L500.2500 ####[facility] [address] [place], [address] Absolute Neut 4.2 X10 3/uL Normal 2.0-7.7 [facility] Comment on above: Performed By: #### L 100.0100, L500.2500 ####[facility] [address] [place], [address] Basophils/100 WBC (Bld) 0.3 % Normal 0-1 [facility] Comment on above: Performed By: #### L 100.0100, L500.2500 ####[facility] [address] [place], [address] Eosinophils/100 WBC (Bld) 2.7 % Normal 0-5 [facility] Comment on above: Performed By: #### L 100.0100, L500.2500 ####[facility] [address] [place], [address] Erythrocyte distribution width (RBC) [Ratio] 13.9 % Normal 11.6-14.6 [facility] Comment on above: Performed By: #### L 100.0100, L500.2500 ####[facility] [address] [place], [address] Hematocrit (Bld) [Volume fraction] 30.3 % Low 37-47 [facility] Comment on above: Performed By: #### L 100.0100, L500.2500 ####[facility] [address] [place], [address] Hemoglobin (Bld) [Mass/Vol] 9.7 g/dL Low 12.0-15.0 [facility] Comment on above: Performed By: #### L 100.0100, L500.2500 ####[facility] [address] [place], [address] IG% 0.300 Normal 0.0-0.9 [facility] Comment on above: Result Comment: IG% - Immature Granulocytes (promyelocytes, myelocytes andmetamyelocytes) > 1% indicates that a LEFT SHIFT is Present. Performed By: #### L 100.0100, L500.2500 ####[facility] [address] [place], [address] Lymphocytes/100 WBC (Bld) 18.6 % Low 19-41 [facility] Comment on above: Performed By: #### L 100.0100, L500.2500 ####[facility] [address] [place], [address] MCH (RBC) [Entitic mass] 31.1 pg Normal 27.0-32.0 [facility] Comment on above: Performed By: #### L 100.0100, L500.2500 ####[facility] [address] [place], [address] MCHC (RBC) [Mass/Vol] 32.0 g/dL Normal 32-36 [facility] Comment on above: Performed By: #### L 100.0100, L500.2500 ####[facility] [address] [place], [address] MCV (RBC) [Entitic vol] 97.1 fL Normal 81-99 [facility] Comment on above: Performed By: #### L 100.0100, L500.2500 ####[facility] [address] [place], [address] Monocytes/100 WBC (Bld) 7.5 % Normal 0-10 [facility] Comment on above: Performed By: #### L 100.0100, L500.2500 ####[facility] [address] [place], [address] Neutrophils/100 WBC (Bld) 70.6 % High 47-70 [facility] Comment on above: Performed By: #### L 100.0100, L500.2500 ####[facility] [address] [place], [address] Nucleated RBC (Bld) [#/Vol] 0 10*3/uL Normal 0-5 [facility] Comment on above: Performed By: #### L 100.0100, L500.2500 ####[facility] [address] [place], [address] Platelet mean volume (Bld) [Entitic vol] 10.3 fL Normal 6.2-12.0 [facility] Comment on above: Performed By: #### L 100.0100, L500.2500 ####[facility] [address] [place], [place], [address] Platelets (Bld) [#/Vol] 168 10*3/uL Normal 150-450 [facility] Comment on above: Performed By: #### L 100.0100, L500.2500 ####[facility] [address] [place], [address] RBC (Bld) [#/Vol] 3.12 10*6/uL Low 4.2-5.4 [facility] Comment on above: Performed By: #### L 100.0100, L500.2500 ####[facility] [address] [place], [address] RDW SD 49.7 fl High 35.1-43.9 [facility] Comment on above: Performed By: #### L 100.0100, L500.2500 ####[facility] [address] [place], [address] WBC (Bld) [#/Vol] 5.9 10*3/uL Normal 4.4-11.0 [facility] Comment on above: Performed By: #### L 100.0100, L500.2500 ####[facility] [address] [place], [address] Carbon dioxide, total [Moles /volume] in Central venous bloodOrdered By: Alonso Marte on 04-21-2025 CO2 [Moles/Vol] 27.7 mmol/L 21.0-32.0 [facility] Chloride assayOrdered By: Rm Marte on 04-21-2025 Chloride [Moles/Vol] 107 mmol/L 98-108 [facility] Eosinophil percentageOrdered By: Alonso Marte 04-21-2025 Eosinophils/100 WBC (Bld) 2.7 % 0-5 [facility] Erythrocyte distribution wid th ratioOrdered By: Alonso Marte 04-21-2025 Erythrocyte distribution width (RBC) [Ratio] 13.9 % 11.6-14.6 [facility] Erythrocyte distribution wid th standard deviationOrdered By: Alonso Marte 04-21-2025 Erythrocyte distribution width (RBC) [Ratio] 49.7 fl High 35.1-43.9 [facility] Glomerular filtration rate ( GFR) estimation/1.73 sq m using serum, plasma, or whole bOrdered By: Alonso Marte 04-21-2025 GFR/1.73 sq M.predicted among non-blacks MDRD (S/P/Bld) [Vol rate/Area] 64 mL/min/{1.73_m2} >60 [facility] Hematocrit Auto (Bld) [Volum e fraction]Ordered By: Alonso Marte 04-21-2025 Hematocrit (Bld) [Volume fraction] 30.3 % Low 37-47 [facility] Hemoglobin measurementOrdere d By: Alonso Marte 04-21-2025 Hemoglobin (Bld) [Mass/Vol] 9.7 g/dL Low 12.0-15.0 [facility] Immature granulocytes/100 WB C Auto (Bld)Ordered By: Alonso Marte 04-21-2025 Immature granulocytes/100 WBC (Bld) 0.300 % 0.0-0.9 [facility] MCV (mean corpuscular volume ) determinationOrdered By: Alonso Marte 04-21-2025 MCV (RBC) [Entitic vol] 97.1 fL 81-99 [facility] Mean corpuscular hemoglobin (MCH) determinationOrdered By: Alonso Marte on 04-21-2025 MCH (RBC) [Entitic mass] 31.1 pg 27.0-32.0 [facility] Monocyte percentageOrdered B y: Alonso Marte on 04-21-2025 Monocytes/100 WBC (Bld) 7.5 % 0-10 [facility] Neutrophil percentageOrdered By: Alonso Marte on 04-21-2025 Neutrophils/100 WBC (Bld) 70.6 % High 47-70 [facility] Platelet countOrdered By: Rm Marte on 04-21-2025 Platelets (Bld) [#/Vol] 168 10*3/uL 150-450 [facility] Potassium measurement (mass/ volume)Ordered By: Alonso Marte 04-21-2025 Potassium (Unsp spec) [Mass/Vol] 4.3 mmol/L 3.3-5.1 [facility] RBC Auto (Bld) [#/Vol]Ordere d By: Alonso Marte on 04-21-2025 RBC (Bld) [#/Vol] 3.12 10*6/uL Low 4.2-5.4 [facility] Serum creatinine measurement (mass/volume)Ordered By: Alonso Marte 04-21-2025 Creatinine [Mass/Vol] 0.95 mg/dL 0.70-1.20 [facility] Serum glucose measurement (m ass/volume)Ordered By: Alonso Marte 04-21-2025 Glucose [Mass/Vol] 185 mg/dL High 70-99 [facility] Serum or plasma calcium loco urement (mass/volume)Ordered By: Alonso Marte 04-21-2025 Calcium [Mass/Vol] 9.0 mg/dL 7.6-11.0 [facility] Serum or plasma urea nitroge n measurement (mass/volume)Ordered By: Alonso Marte 04-21-2025 Urea nitrogen [Mass/Vol] 14 mg/dL 4-19 [facility] Sodium levelOrdered By: Alonso Marte 04-21-2025 Sodium [Moles/Vol] 142 mmol/L 133-145 [facility] White blood cell (WBC) count Ordered By: Alonso Marte on 04-21-2025 WBC (Bld) [#/Vol] 5.9 10*3/uL 4.4-11.0 [facility] Anion gap in Serum or Plasma Ordered By: Maximo Orosco on 04-20-2025 Anion gap [Moles/Vol] 10 mmol/L 04-05 [facility] BUN/creatinine ratioOrdered By: Maximo Orosco on 04-20-2025 Urea nitrogen/Creatinine [Mass ratio] 13.4 mg/mg 09-10 [facility] Basic Metabolic Profile (BMP )on 04-20-2025 BUN/CRE 13.4 RATIO Normal 09-10 [facility] Comment on above: Performed By: #### L 100.0500, L500.2500 ####[facility] [address] [place], [address] Calcium [Mass/Vol] 8.7 mg/dL Normal 7.6-11.0 [facility] Comment on above: Performed By: #### L 100.0500, L500.2500 ####[facility] [address] [place], [address] Chloride [Moles/Vol] 105 mmol/L Normal 98-108 [facility] Comment on above: Performed By: #### L 100.0500, L500.2500 ####[facility] [address] [place], [address] CO2 [Moles/Vol] 23.8 mmol/L Normal 21.0-32.0 [facility] Comment on above: Performed By: #### L 100.0500, L500.2500 ####[facility] [address] [place], [address] Creatinine [Mass/Vol] 0.88 mg/dL Normal 0.70-1.20 [facility] Comment on above: Performed By: #### L 100.0500, L500.2500 ####[facility] [address] [place], [address] ECRCL 56.56 ml/min Normal 50-250 [facility] Comment on above: Performed By: #### L 100.0500, L500.2500 ####[facility] [address] [place], [address] GAP 10 Normal 5-15 [facility] Comment on above: Performed By: #### L 100.0500, L500.2500 ####[facility] [address] [place], [address] GFR/1.73 sq M.predicted among non-blacks MDRD (S/P/Bld) [Vol rate/Area] 70 mL/min/{1.73_m2} Normal >60 [facility] Comment on above: Result Comment: mL/m in/1.73m2 CKD-EPI Creatinine Equation (2020) Performed By: #### L 100.0500, L500.2500 ####[facility] [address] [place], [address] Glucose [Mass/Vol] 188 mg/dL High 70-99 [facility] Comment on above: Performed By: #### L 100.0500, L500.2500 ####[facility] [address] [place], [address] Potassium [Moles/Vol] 3.9 mmol/L Normal 3.3-5.1 [facility] Comment on above: Result Comment: Hemo lysis present, Results??could be affected.?? Performed By: #### L 100.0500, L500.2500 ####[facility] [address] [place], [address] Sodium [Moles/Vol] 138 mmol/L Normal 133-145 [facility] Comment on above: Performed By: #### L 100.0500, L500.2500 ####[facility] [address] [place], [address] Urea nitrogen [Mass/Vol] 12 mg/dL Normal 4-19 [facility] Comment on above: Performed By: #### L 100.0500, L500.2500 ####[facility] [address] [place], [address] Bedside Glucoseon 04-20-2025 FINGERSTICK GLU 177 mg/dL High 74-106 [facility] Comment on above: Result Comment: TORRES GEMENT OF PATIENT CARE PER NURSING PROTOCOL Performed By: #### L 501.080 ####[facility] [address] [place], [address] FINGERSTICK GLU 225 mg/dL High 74-106 [facility] Comment on above: Result Comment: TORRES GEMENT OF PATIENT CARE PER NURSING PROTOCOL Performed By: #### L 501.080 ####[facility] [address] [place], [address] FINGERSTICK GLU 197 mg/dL High 74-106 [facility] Comment on above: Result Comment: TORRES GEMENT OF PATIENT CARE PER NURSING PROTOCOL Performed By: #### L 501.080 ####[facility] [address] [place], [address] CBC-Complete Blood Cnt No Di ffon 04-20-2025 Erythrocyte distribution width (RBC) [Ratio] 13.7 % Normal 11.6-14.6 [facility] Comment on above: Performed By: #### L 100.0500, L500.2500 ####[facility] [address] [place], [address] Hematocrit (Bld) [Volume fraction] 28.7 % Low 37-47 [facility] Comment on above: Performed By: #### L 100.0500, L500.2500 ####[facility] [address] [place], [address] Hemoglobin (Bld) [Mass/Vol] 9.6 g/dL Low 12.0-15.0 [facility] Comment on above: Performed By: #### L 100.0500, L500.2500 ####[facility] [address] [place], [address] MCH (RBC) [Entitic mass] 31.3 pg Normal 27.0-32.0 [facility] Comment on above: Performed By: #### L 100.0500, L500.2500 ####[facility] [address] [place], [address] MCHC (RBC) [Mass/Vol] 33.4 g/dL Normal 32-36 [facility] Comment on above: Performed By: #### L 100.0500, L500.2500 ####[facility] [address] [place], [address] MCV (RBC) [Entitic vol] 93.5 fL Normal 81-99 [facility] Comment on above: Performed By: #### L 100.0500, L500.2500 ####[facility] [address] [place], [address] Platelet mean volume (Bld) [Entitic vol] 10.7 fL Normal 6.2-12.0 [facility] Comment on above: Performed By: #### L 100.0500, L500.2500 ####[facility] [address] [place], [address] Platelets (Bld) [#/Vol] 175 10*3/uL Normal 150-450 [facility] Comment on above: Performed By: #### L 100.0500, L500.2500 ####[facility] [address] [place], [address] RBC (Bld) [#/Vol] 3.07 10*6/uL Low 4.2-5.4 [facility] Comment on above: Performed By: #### L 100.0500, L500.2500 ####[facility] [address] [place], [address] RDW SD 46.6 fl High 35.1-43.9 [facility] Comment on above: Performed By: #### L 100.0500, L500.2500 ####[facility] [address] [place], [address] WBC (Bld) [#/Vol] 6.0 10*3/uL Normal 4.4-11.0 [facility] Comment on above: Performed By: #### L 100.0500, L500.2500 ####[facility] [address] [place], [address] Carbon dioxide, total [Moles /volume] in Central venous bloodOrdered By: Maximo Orosco on 04-20-2025 CO2 [Moles/Vol] 23.8 mmol/L 21.0-32.0 [facility] Chloride assayOrdered By: Sam Orosco on 04-20-2025 Chloride [Moles/Vol] 105 mmol/L 98-108 [facility] Erythrocyte distribution wid th ratioOrdered By: Maximo Orosco on 04-20-2025 Erythrocyte distribution width (RBC) [Ratio] 13.7 % 11.6-14.6 [facility] Erythrocyte distribution wid th standard deviationOrdered By: Maximo Orosco on 04-20-2025 Erythrocyte distribution width (RBC) [Ratio] 46.6 fl High 35.1-43.9 [facility] Glomerular filtration rate ( GFR) estimation/1.73 sq m using serum, plasma, or whole bOrdered By: Maximo Orosco on 04-20-2025 GFR/1.73 sq M.predicted among non-blacks MDRD (S/P/Bld) [Vol rate/Area] 70 mL/min/{1.73_m2} >60 [facility] Comment on above: mL/min/1.73m2 CKD-EP I Creatinine Equation (2020) [facility] deOrdered By: Maximo Orosco on 04-20-2025 Glucose [Mass/Vol] 225 mg/dL High 74-106 [facility] Comment on above: MANAGEMENT OF PATIEN T CARE PER NURSING PROTOCOL Hematocrit Auto (Bld) [Volum e fraction]Ordered By: Maximo Orosco on 04-20-2025 Hematocrit (Bld) [Volume fraction] 28.7 % Low 37-47 [facility] Hemoglobin measurementOrdere d By: Maximo Orosco on 04-20-2025 Hemoglobin (Bld) [Mass/Vol] 9.6 g/dL Low 12.0-15.0 [facility] MCV (mean corpuscular volume ) determinationOrdered By: Maximo Orosco on 04-20-2025 MCV (RBC) [Entitic vol] 93.5 fL 81-99 [facility] Mean corpuscular hemoglobin (MCH) determinationOrdered By: Maximo Orosco on 04-20-2025 MCH (RBC) [Entitic mass] 31.3 pg 27.0-32.0 [facility] Mean corpuscular hemoglobin concentration (MCHC) determinationOrdered By: Maximo Orosco on 04-20-2025 MCHC (RBC) [Mass/Vol] 33.4 g/dL 32-36 [facility] Mean platelet volume determi nationOrdered By: Maximo Orosco on 04-20-2025 Platelet mean volume (Bld) [Entitic vol] 10.7 fL 6.2-12.0 [facility] Platelet countOrdered By: Sam Orosco on 04-20-2025 Platelets (Bld) [#/Vol] 175 10*3/uL 150-450 [facility] Potassium measurement (mass/ volume)Ordered By: Maximo Orosco on 04-20-2025 Potassium (Unsp spec) [Mass/Vol] 3.9 mmol/L 3.3-5.1 [facility] Comment on above: Hemolysis present, R esults could be affected. RBC Auto (Bld) [#/Vol]Ordere d By: Maximo Orosco on 04-20-2025 RBC (Bld) [#/Vol] 3.07 10*6/uL Low 4.2-5.4 [facility] Serum creatinine measurement (mass/volume)Ordered By: Maximo Orosco on 04-20-2025 Creatinine [Mass/Vol] 0.88 mg/dL 0.70-1.20 [facility] Serum glucose measurement (m ass/volume)Ordered By: Maximo Orosco on 04-20-2025 Glucose [Mass/Vol] 188 mg/dL High 70-99 [facility] Serum or plasma calcium loco urement (mass/volume)Ordered By: Maximo Orosco on 04-20-2025 Calcium [Mass/Vol] 8.7 mg/dL 7.6-11.0 [facility] Serum or plasma urea nitroge n measurement (mass/volume)Ordered By: Maximo Orosco on 04-20-2025 Urea nitrogen [Mass/Vol] 12 mg/dL 4-19 [facility] Sodium levelOrdered By: Pasquale Orosco on 04-20-2025 Sodium [Moles/Vol] 138 mmol/L 133-145 [facility] White blood cell (WBC) count Ordered By: Maximo Orosco on 04-20-2025 WBC (Bld) [#/Vol] 6.0 10*3/uL 4.4-11.0 [facility] 12 Lead EKGon 04-19-2025 12 Lead EKG Normal [facility] Absolute lymphocyte countOrd ered By: Romeo Padron on 04-19-2025 Lymphocytes Auto (Unsp spec) [#/Vol] 0.90 10*3/uL 0.83-4.51 [facility] Absolute neutrophil countOrd ered By: Romeo Padron on 04-19-2025 Neutrophils (Bld) [#/Vol] 6.8 10*3/uL 2.0-7.7 [facility] Anion gap in Serum or Plasma Ordered By: Romeo Padron on 04-19-2025 Anion gap [Moles/Vol] 10 mmol/L 5-15 [facility] Automated lymphocyte count a s percentage of total leukocytesOrdered By: Romeo Padron on 04-19-2025 Lymphocytes/100 WBC Auto (Unsp spec) 10.4 % Low 19-41 [facility] BUN/creatinine ratioOrdered By: Romeo Padron on 04-19-2025 Urea nitrogen/Creatinine [Mass ratio] 19.3 mg/mg 10- [facility] Basic Metabolic Profile (BMP )on 04-19-2025 BUN/CRE 19.3 RATIO Normal - [facility] Comment on above: Performed By: #### L 501.9520, L501.5200, L500.2500, L100.0100 ####[facility] [address] [place], [address] Calcium [Mass/Vol] 9.0 mg/dL Normal 7.6-11.0 [facility] Comment on above: Performed By: #### L 501.9520, L501.5200, L500.2500, L100.0100 ####[facility] [address] [place], [address] Chloride [Moles/Vol] 99 mmol/L Normal 98-108 [facility] Comment on above: Performed By: #### L 501.9520, L501.5200, L500.2500, L100.0100 ####[facility] [address] [place], [address] CO2 [Moles/Vol] 25.9 mmol/L Normal 21.0-32.0 [facility] Comment on above: Performed By: #### L 501.9520, L501.5200, L500.2500, L100.0100 ####[facility] [address] [place], [address] Creatinine [Mass/Vol] 1.02 mg/dL Normal 0.70-1.20 [facility] Comment on above: Performed By: #### L 501.9520, L501.5200, L500.2500, L100.0100 ####[facility] [address] [place], [address] ECRCL 50.29 ml/min Normal 50-250 [facility] Comment on above: Performed By: #### L 501.9520, L501.5200, L500.2500, L100.0100 ####[facility] [address] [place], [address] GAP 10 Normal 5-15 [facility] Comment on above: Performed By: #### L 501.9520, L501.5200, L500.2500, L100.0100 ####[facility] [address] [place], [address] GFR/1.73 sq M.predicted among non-blacks MDRD (S/P/Bld) [Vol rate/Area] 58 mL/min/{1.73_m2} Low >60 [facility] Comment on above: Result Comment: mL/m in/1.73m2 CKD-EPI Creatinine Equation (2020) Performed By: #### L 501.9520, L501.5200, L500.2500, L100.0100 ####[facility] [address] [place], [address] Glucose [Mass/Vol] 229 mg/dL High 70-99 [facility] Comment on above: Performed By: #### L 501.9520, L501.5200, L500.2500, L100.0100 ####[facility] [address] [place], [address] Potassium [Moles/Vol] 4.4 mmol/L Normal 3.3-5.1 [facility] Comment on above: Result Comment: Hemo lysis present, Results??could be affected.?? Performed By: #### L 501.9520, L501.5200, L500.2500, L100.0100 ####[facility] [address] [place], [address] Sodium [Moles/Vol] 135 mmol/L Normal 133-145 [facility] Comment on above: Performed By: #### L 501.9520, L501.5200, L500.2500, L100.0100 ####[facility] [address] [place], [address] Urea nitrogen [Mass/Vol] 20 mg/dL High 4-19 [facility] Comment on above: Performed By: #### L 501.9520, L501.5200, L500.2500, L100.0100 ####[facility] [address] [place], [address] Basophil percentageOrdered B y: Romeo Padron on 04-19-2025 Basophils/100 WBC (Bld) 0.3 % 0-1 [facility] Bedside Glucoseon 04-19-2025 FINGERSTICK GLU 242 mg/dL High 74-106 [facility] Comment on above: Result Comment: TORRES GEMENT OF PATIENT CARE PER NURSING PROTOCOL Performed By: #### L 501.080 ####[facility] [address] [place], [address] FINGERSTICK GLU 260 mg/dL High 74-106 [facility] Comment on above: Result Comment: TORRES GEMENT OF PATIENT CARE PER NURSING PROTOCOL Performed By: #### L 501.080 ####[facility] [address] [place], [address] FINGERSTICK GLU 153 mg/dL High 74-106 [facility] Comment on above: Result Comment: TORRES GEMENT OF PATIENT CARE PER NURSING PROTOCOL Performed By: #### L 501.080 ####[facility] [address] [place], [address] Bilirubin Test strip Ql (U)O rdered By: Romeo Padron on 04-19-2025 Bilirubin Ql (U) Negative Negative [facility] CBC W/Diff, Automatedon 03-23 Absolute Lymph 0.90 X10 3/uL Normal 0.83-4.51 [facility] Comment on above: Performed By: #### L 501.9520, L501.5200, L500.2500, L100.0100 ####[facility] [address] [place], [address] Absolute Neut 6.8 X10 3/uL Normal 2.0-7.7 [facility] Comment on above: Performed By: #### L 501.9520, L501.5200, L500.2500, L100.0100 ####[facility] [address] [place], [address] Basophils/100 WBC (Bld) 0.3 % Normal 0-1 [facility] Comment on above: Performed By: #### L 501.9520, L501.5200, L500.2500, L100.0100 ####[facility] [address] [place], [address] Eosinophils/100 WBC (Bld) 2.5 % Normal 0-5 [facility] Comment on above: Performed By: #### L 501.9520, L501.5200, L500.2500, L100.0100 ####[facility] [address] [place], [address] Erythrocyte distribution width (RBC) [Ratio] 13.3 % Normal 11.6-14.6 [facility] Comment on above: Performed By: #### L 501.9520, L501.5200, L500.2500, L100.0100 ####[facility] [address] [place], [address] Hematocrit (Bld) [Volume fraction] 30.8 % Low 37-47 [facility] Comment on above: Performed By: #### L 501.9520, L501.5200, L500.2500, L100.0100 ####[facility] [address] [place], [address] Hemoglobin (Bld) [Mass/Vol] 10.4 g/dL Low 12.0-15.0 [facility] Comment on above: Performed By: #### L 501.9520, L501.5200, L500.2500, L100.0100 ####[facility] [address] [place], [address] IG% 0.300 Normal 0.0-0.9 [facility] Comment on above: Result Comment: IG% - Immature Granulocytes (promyelocytes, myelocytes andmetamyelocytes) > 1% indicates that a LEFT SHIFT is Present. Performed By: #### L 501.9520, L501.5200, L500.2500, L100.0100 ####[facility] [address] [place], [address] Lymphocytes/100 WBC (Bld) 10.4 % Low 19-41 [facility] Comment on above: Performed By: #### L 501.9520, L501.5200, L500.2500, L100.0100 ####[facility] [address] [place], [address] MCH (RBC) [Entitic mass] 31.3 pg Normal 27.0-32.0 [facility] Comment on above: Performed By: #### L 501.9520, L501.5200, L500.2500, L100.0100 ####[facility] [address] [place], [address] MCHC (RBC) [Mass/Vol] 33.8 g/dL Normal 32-36 [facility] Comment on above: Performed By: #### L 501.9520, L501.5200, L500.2500, L100.0100 ####[facility] [address] [place], [address] MCV (RBC) [Entitic vol] 92.8 fL Normal 81-99 [facility] Comment on above: Performed By: #### L 501.9520, L501.5200, L500.2500, L100.0100 ####[facility] [address] [place], [address] Monocytes/100 WBC (Bld) 8.2 % Normal 0-10 [facility] Comment on above: Performed By: #### L 501.9520, L501.5200, L500.2500, L100.0100 ####[facility] [address] [place], [address] Neutrophils/100 WBC (Bld) 78.3 % High 47-70 [facility] Comment on above: Performed By: #### L 501.9520, L501.5200, L500.2500, L100.0100 ####[facility] [address] [place], [address] Nucleated RBC (Bld) [#/Vol] 0 10*3/uL Normal 0-5 [facility] Comment on above: Performed By: #### L 501.9520, L501.5200, L500.2500, L100.0100 ####[facility] [address] [place], [address] Platelet mean volume (Bld) [Entitic vol] 10.8 fL Normal 6.2-12.0 [facility] Comment on above: Performed By: #### L 501.9520, L501.5200, L500.2500, L100.0100 ####[facility] [address] [place], [address] Platelets (Bld) [#/Vol] 189 10*3/uL Normal 150-450 [facility] Comment on above: Performed By: #### L 501.9520, L501.5200, L500.2500, L100.0100 ####[facility] [address] [place], [address] RBC (Bld) [#/Vol] 3.32 10*6/uL Low 4.2-5.4 [facility] Comment on above: Performed By: #### L 501.9520, L501.5200, L500.2500, L100.0100 ####[facility] [address] [place], [address] RDW SD 44.9 fl High 35.1-43.9 [facility] Comment on above: Performed By: #### L 501.9520, L501.5200, L500.2500, L100.0100 ####[facility] [address] [place], [address] WBC (Bld) [#/Vol] 8.7 10*3/uL Normal 4.4-11.0 [facility] Comment on above: Performed By: #### L 501.9520, L501.5200, L500.2500, L100.0100 ####[facility] [address] [place], [address] Carbon dioxide, total [Moles /volume] in Central venous bloodOrdered By: Romeo Padron on 04-19-2025 CO2 [Moles/Vol] 25.9 mmol/L 21.0-32.0 [facility] Chloride assayOrdered By: Lizeth Padron on 04-19-2025 Chloride [Moles/Vol] 99 mmol/L 98-108 [facility] Emergency Department Summary on 04-19-2025 Emergency Department Summary Normal [facility] Eosinophil percentageOrdered By: Romeo Padron on 04-19-2025 Eosinophils/100 WBC (Bld) 2.5 % 0-5 [facility] Erythrocyte distribution wid th ratioOrdered By: Romeo Padron on 04-19-2025 Erythrocyte distribution width (RBC) [Ratio] 13.3 % 11.6-14.6 [facility] Erythrocyte distribution wid th standard deviationOrdered By: Romeo Padron on 04-19-2025 Erythrocyte distribution width (RBC) [Ratio] 44.9 fl High 35.1-43.9 [facility] Glomerular filtration rate ( GFR) estimation/1.73 sq m using serum, plasma, or whole bOrdered By: Romeo Padron on 04-19-2025 GFR/1.73 sq M.predicted among non-blacks MDRD (S/P/Bld) [Vol rate/Area] 58 mL/min/{1.73_m2} Low >60 [facility] Comment on above: mL/min/1.73m2 CKD-EP I Creatinine Equation (2020) [facility] deOrdered By: Romeo Padron on 04-19-2025 Glucose [Mass/Vol] 153 mg/dL High 74-106 [facility] Comment on above: MANAGEMENT OF PATIEN T CARE PER NURSING PROTOCOL H AND P Exam - Hospital[place] 04-19-2025 H&P Exam - Hospitalist Normal [facility] Hematocrit Auto (Bld) [Volum e fraction]Ordered By: Romeo Padron on 04-19-2025 Hematocrit (Bld) [Volume fraction] 30.8 % Low 37-47 [facility] Hemoglobin measurementOrdere d By: Romeo Padron on 04-19-2025 Hemoglobin (Bld) [Mass/Vol] 10.4 g/dL Low 12.0-15.0 [facility] Immature granulocytes/100 WB C Auto (Bld)Ordered By: Romeo Padron on 04-19-2025 Immature granulocytes/100 WBC (Bld) 0.300 % 0.0-0.9 [facility] Comment on above: IG% - Immature Granu locytes (promyelocytes, myelocytes and metamyelocytes) > 1% indicates that a LEFT SHIFT is Present. Ketones Test strip Ql (U)Ord ered By: Romeo Padron on 04-19-2025 Ketones Ql (U) Negative Negative [facility] MCV (mean corpuscular volume ) determinationOrdered By: Romeo Padron on 04-19-2025 MCV (RBC) [Entitic vol] 92.8 fL 81-99 [facility] Magnesiumon 04-19-2025 Magnesium [Mass/Vol] 1.6 mg/dL Normal 1.5-2.2 [facility] Comment on above: Performed By: #### L 501.9533, L501.5200, L500.2500, L100.0100 ####[facility] [address] [place], [place], [id number] Magnesium measurement (mass/ volume)Ordered By: Romeo Padron on 04-19-2025 Magnesium (Unsp spec) [Mass/Vol] 1.6 mg/dL 1.5-2.2 [facility] Mean corpuscular hemoglobin (MCH) determinationOrdered By: Romeo Padron on 04-19-2025 MCH (RBC) [Entitic mass] 31.3 pg 27.0-32.0 [facility] Mean corpuscular hemoglobin concentration (MCHC) determinationOrdered By: Romeo Padron on 04-19-2025 MCHC (RBC) [Mass/Vol] 33.8 g/dL 32-36 [facility] Mean platelet volume determi nationOrdered By: Romeo Padron on 04-19-2025 Platelet mean volume (Bld) [Entitic vol] 10.8 fL 6.2-12.0 [facility] Microscopic analysis of urin e for red blood cells (RBC)Ordered By: Romeo Padron on 04-19-2025 Microscopic analysis of urine for red blood cells (RBC) 0 SEEN /hpf 0-5 [facility] Monocyte percentageOrdered B y: Romeo Padron on 04-19-2025 Monocytes/100 WBC (Bld) 8.2 % 0-10 [facility] Mucus LM Ql (Urine sed)Order ed By: Romeo Padron on 04-19-2025 Mucus Ql (Urine sed) 0 SEEN /hpf [facility] Neutrophil percentageOrdered By: Romeo Padron on 04-19-2025 Neutrophils/100 WBC (Bld) 78.3 % High 47-70 [facility] Nitrite Test strip Ql (U)Ord ered By: Romeo Padron on 04-19-2025 Nitrite Ql (U) Negative Negative [facility] Nucleated red blood cell per centageOrdered By: Romeo Padron on 04-19-2025 Nucleated RBC/100 WBC (Bld) [Ratio] 0 % 0-5 [facility] Platelet countOrdered By: Lizeth Padron on 04-19-2025 Platelets (Bld) [#/Vol] 189 10*3/uL 150-450 [facility] Potassium measurement (mass/ volume)Ordered By: Romeo Padron on 04-19-2025 Potassium (Unsp spec) [Mass/Vol] 4.4 mmol/L 3.3-5.1 [facility] Comment on above: Hemolysis present, R esults could be affected. Protein Test strip Ql (U)Ord ered By: Romeo Padron on 04-19-2025 Protein Ql (U) 15 mg/dl High Negative [facility] RBC Auto (Bld) [#/Vol]Ordere d By: Romeo Padron on 04-19-2025 RBC (Bld) [#/Vol] 3.32 10*6/uL Low 4.2-5.4 [facility] Serum creatinine measurement (mass/volume)Ordered By: Romeo Padron on 04-19-2025 Creatinine [Mass/Vol] 1.02 mg/dL 0.70-1.20 [facility] Serum glucose measurement (m ass/volume)Ordered By: Romeo Padron on 04-19-2025 Glucose [Mass/Vol] 229 mg/dL High 70-99 [facility] Serum or plasma calcium loco urement (mass/volume)Ordered By: Romeo Padron on 04-19-2025 Calcium [Mass/Vol] 9.0 mg/dL 7.6-11.0 [facility] Serum or plasma urea nitroge n measurement (mass/volume)Ordered By: Romeo Padron on 04-19-2025 Urea nitrogen [Mass/Vol] 20 mg/dL High 4-19 [facility] Sodium levelOrdered By: Aleksander Padron on 04-19-2025 Sodium [Moles/Vol] 135 mmol/L 133-145 [facility] Squamous epithelial cells de tection in urine sediment by light microscopyOrdered By: Romeo Padron on 04-19-2025 Epithelial cells.squamous LM Ql (Urine sed) 0 SEEN /hpf 5-10 [facility] TSH DL <= 0.005 mIU/L QnOrde red By: Romeo Padron on 04-19-2025 TSH Qn 4.050 uIU/mL 0.300-4.20 0 [facility] Thyroid Stim Hormone (TSH)on 04-19-2025 TSH 4.050 uIU/mL Normal 0.300-4.20 0 [facility] Comment on above: Performed By: #### L 501.6720, L501.5200, L500.2500, L100.0100 ####[facility] [address] [place], [address] Urinalysis, Completeon 04-19 BACTERIA 0 SEEN Normal None Seen [facility] Comment on above: Order Comment: COLLE CTOR TO SPECIFY Performed By: #### L 400.0001 ####[facility] [address] [place], [address] EPI,SQUAMOUS 0 SEEN Normal 5-10 [facility] Comment on above: Order Comment: HUNTER CTOR TO SPECIFY Performed By: #### L 400.0001 ####[facility] [address] [place], [address] Mucus Ql (Urine sed) 0 SEEN Normal [facility] Comment on above: Order Comment: HUNTER CTOR TO SPECIFY Performed By: #### L 400.0001 ####[facility] [address] [place], [address] RBC 0 SEEN Normal 0-5 [facility] Comment on above: Order Comment: HUNTER CTOR TO SPECIFY Performed By: #### L 400.0001 ####[facility] [address] [place], [address] WBC 0 SEEN Normal 0-5 [facility] Comment on above: Order Comment: HUNTER CTOR TO SPECIFY Performed By: #### L 400.0001 ####[facility] [address] [place], [address] Urine clarityOrdered By: Ryan Padron on 04-19-2025 Clarity (U) Clear Clear [facility] Urine color determinationOrd ered By: Romeo Padron on 04-19-2025 Color (U) Yellow Yellow [facility] Urine glucose detectionOrder ed By: Romeo Padron on 04-19-2025 Glucose Ql (U) 100 mg/dl High Normal [facility] Urine leukocyte esterase det ection by dipstickOrdered By: Romeo Padron on 04-19-2025 Leukocyte esterase Test strip Ql (U) Negative Negative [facility] Urine pHOrdered By: Romeo salas on 04-19-2025 pH (U) 6.5 [pH] 5.0 - 8.0 [facility] Urine sediment bacteria coun t by microscopy (number/high power field)Ordered By: Romeo Padron on 04-19-2025 Bacteria LM.HPF (Urine sed) [#/Area] 0 /[HPF] None Seen [facility] Urine specific gravity measu rementOrdered By: Romeo Padron on 04-19-2025 Specific gravity (U) [Rel density] 1.010 1.002-1.03 0 [facility] Urine urobilinogen measureme ntOrdered By: Romeo Padron on 04-19-2025 Urobilinogen Ql (U) Normal mg/dl Normal [facility] White blood cell (WBC) count Ordered By: Romeo Padron on 04-19-2025 WBC (Bld) [#/Vol] 8.7 10*3/uL 4.4-11.0 [facility] White blood cell countOrdere d By: Romeo Padron on 04-19-2025 White blood cell count 0 SEEN /hpf 0-5 [facility] MR Brain WO contraston 04-04 IMPRESSION: 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 Remainder of the brain shows relatively mild background chronic microvascular disease. No acute abnormalities. Network Contractor: [facility] Transcribe Date/Time: Apr 04 2025 12:45P Dictated by : BRITANY GASPAR MD This examination was interpreted and the report reviewed and electronically signed by: BRITANY GASPAR MD on Apr 04 2025 1:03PM [facility] * * *Final Report* * * DATE OF EXAM: Apr 04 2025 12:39PM [facility] 0294 - MRI BRAIN WO IVCON / PROCEDURE REASON: multiple diagnoses * * * * Physician Interpretation * * * * EXAMINATION: MRI BRAIN WO IVCON CLINICAL HISTORY: Essential tremor Dyskinesia, tardive. This information is taken directly from the back order clerk system. TECHNIQUE: Routine noncontrast MRI protocol including [...] Prior lens replacements. Orbits are otherwise unremarkable. [facility] Provider, [facility] - 04/04/2025 * * *Final Report* * * DATE OF EXAM: Apr 04 2025 12:39PM [facility] 0294 - MRI BRAIN WO IVCON / PROCEDURE REASON: multiple diagnoses * * * * Physician Interpretation * * * * EXAMINATION: MRI BRAIN WO IVCON CLINICAL HISTORY: Essential tremor Dyskinesia, tardive. This information is taken directly from the back order clerk system. TECHNIQUE: Routine noncontrast MRI protocol including [...] background chronic microvascular disease. No acute abnormalities. Network Contractor: [facility] Transcribe Date/Time: Apr 04 2025 12:45P Dictated by : BRITANY GASPAR MD This examination was interpreted and the report reviewed and electronically signed by: BRITANY GASPAR MD on Apr 04 2025 1:03PM EST [facility] Radiology Study observation (narrative) [facility] MR Brain WO contrastOrdered By: [facility] Provider on 04-04-2025 [facility] MRI BRAIN WO IVCONon 025 MRI BRAIN WO IVCON * * *Final Report* * * DATE OF EXAM: Apr 04 2025 12:39PM [facility] 0294 - MRI BRAIN WO IVCON / PROCEDURE REASON: multiple diagnoses * * * * Physician Interpretation * * * * EXAMINATION: MRI BRAIN WO IVCON CLINICAL HISTORY: Essential tremor Dyskinesia, tardive. This information is taken directly from the back order clerk system. TECHNIQUE: Routine noncontrast MRI protocol including [...] background chronic microvascular disease. No acute abnormalities. Network Contractor: [facility] Transcribe Date/Time: Apr 04 2025 12:45P Dictated by : BRITANY GASPAR MD This examination was interpreted and the report reviewed and electronically signed by: BRITANY GASPAR MD on Apr 04 2025 1:03PM EST [id number] Normal [facility] NURSING PROGon 04-04-2025 NURSING PROG HNO ID: [id number] Author: JANINE TOMPKINS RN Service: Nursing Author [...] REVIEWED: YES PROCEDURE: MRI - Conditional Pacemaker [employer] [address] [employer] Device - Settings: DOO 90 bpm Physiologic monitoring per standard operating procedure. See vital sign flowsheet. PERIPHERAL IV ACCESS: Not applicable PATIENT TOLERATED PROCEDURE: Without incident. PATIENT DISCHARGED TO: Home/Self Care SIGNED BY: TANIA Barnett Patient arrived here today for an MRI. Patients [employer] Pacemaker was placed in MRI safe mode by technical manager AND device. Vitals remained stable throughout - see flowsheet. MRI was completed and then pacemaker was taken out of MRI safe mode and tolerated well. Patient was discharged home with family. Normal [facility] XR CHEST 2V FRONTAL/LATon XR CHEST 2V [...] chest. No developing abnormality or acute process Network Contractor: [facility] Transcribe Date/Time: Apr 03 2025 3:49P Dictated by : MIRA HODGSON MD This examination was interpreted and the report reviewed and electronically signed by: MIRA HODGSON MD on Apr 03 2025 3:51PM EST [id number] [facility] 03-28-2025 CNPN Telephone (NRMDN) MANSI CARO ([id number]) 1955 F Date Time Provider Department 03/28/25 LEYLA MURPHY During your visit today, we recorded the following information about you: Soumya Moss RN 03/28/2025 9:48 AM Signed Voicemail received March 27, 2025 [id number] Spouse calling to check on status of [...] and is willing to rechallenge HERVE RN Date Reviewed: 02/27/2025 Reviewed by: Leyla Murphy MD - Fully Assessed Reason for Visit: Patient Question [3047] Prescriptions as of 03/28/2025 - deutetrabenazine XR [...] Encounter Status:Closed by SOUMYA MOSS on 03/28/25 [facility] PT D/C Summary (1)on 025 PT D/C Summary (1) Normal [facility] 12 Lead EKGon 03-10-2025 12 Lead EKG Normal [facility] 36on 03-10-2025 36 S-Patient and patien t spouse calling in re: patient fell yesterday and has Left hip pain . B-Happened yesterday A-states having hard time walking due to pain, No COVID Symptoms. Has a brouis, no other sites with pain R-Scheduled Same Day After hours appt today @ 10:00a 03/10/25 @ [facility], address provided Reason for Disposition MILD weakness (i.e., does not interfere with ability to work, go to school, normal activities) (Exception: Mild weakness is a chronic symptom.) Answer Assessment - Initial Assessment Questions . Protocols used: Falls and [place]-FAQEC-FA Normal [facility] Absolute lymphocyte countOrd ered By: Mellisa Cabrera on 03-10-2025 Lymphocytes Auto (Unsp spec) [#/Vol] 1.61 10*3/uL 0.83-4.51 [facility] Absolute neutrophil countOrd ered By: Mellisa Cabrera on 03-10-2025 Neutrophils (Bld) [#/Vol] 3.9 10*3/uL 2.0-7.7 [facility] Anion gap in Serum or Plasma Ordered By: Mellisa Cabrera on 03-10-2025 Anion gap [Moles/Vol] 11 mmol/L 5-15 [facility] Automated lymphocyte count a s percentage of total leukocytesOrdered By: Mellisa Cabrera on 03-10-2025 Lymphocytes/100 WBC Auto (Unsp spec) 25.4 % [facility] BUN/creatinine ratioOrdered By: Mellisa Cabrera on 03-10-2025 Urea nitrogen/Creatinine [Mass ratio] 20.1 mg/mg High 09-10 [facility] Basic Metabolic Profile (BMP )on 03-10-2025 BUN/CRE 20.1 RATIO High 09-10 [facility] Comment on above: Performed By: #### L 100.0100, L500.2500 ####[facility] [address] [place], [address] Calcium [Mass/Vol] 9.1 mg/dL Normal 7.6-11.0 [facility] Comment on above: Performed By: #### L 100.0100, L500.2500 ####[facility] [address] [place], [address] Chloride [Moles/Vol] 106 mmol/L Normal 98-108 [facility] Comment on above: Performed By: #### L 100.0100, L500.2500 ####[facility] [address] [place], [address] CO2 [Moles/Vol] 22.8 mmol/L Normal 21.0-32.0 [facility] Comment on above: Performed By: #### L 100.0100, L500.2500 ####[facility] [address] [place], [address] Creatinine [Mass/Vol] 0.97 mg/dL Normal 0.70-1.20 [facility] Comment on above: Performed By: #### L 100.0100, L500.2500 ####[facility] [address] [place], [address] ECRCL 51.73 ml/min Normal 50-250 [facility] Comment on above: Performed By: #### L 100.0100, L500.2500 ####[facility] [address] [place], [address] GAP 11 Normal 5-15 [facility] Comment on above: Performed By: #### L 100.0100, L500.2500 ####[facility] [address] [place], [address] GFR/1.73 sq M.predicted among non-blacks MDRD (S/P/Bld) [Vol rate/Area] 62 mL/min/{1.73_m2} Normal >60 [facility] Comment on above: Result Comment: mL/m in/1.73m2 CKD-EPI Creatinine Equation (2020) Performed By: #### L 100.0100, L500.2500 ####[facility] [address] [place], [address] Glucose [Mass/Vol] 139 mg/dL High 70-99 [facility] Comment on above: Performed By: #### L 100.0100, L500.2500 ####[facility] [address] [place], [address] Potassium [Moles/Vol] 4.3 mmol/L Normal 3.3-5.1 [facility] Comment on above: Performed By: #### L 100.0100, L500.2500 ####[facility] [address] [place], [address] Sodium [Moles/Vol] 140 mmol/L Normal 133-145 [facility] Comment on above: Performed By: #### L 100.0100, L500.2500 ####[facility] [address] [place], [address] Urea nitrogen [Mass/Vol] 20 mg/dL High -19 [facility] Comment on above: Performed By: #### L 100.0100, L500.2500 ####[facility] [address] [place], [address] Basophil percentageOrdered B y: Mellisa Cabrera on 03-10-2025 Basophils/100 WBC (Bld) 0.3 % 0-1 [facility] Bilirubin Test strip Ql (U)O rdered By: Mellisa Cabrera on 03-10-2025 Bilirubin Ql (U) Negative Negative [facility] CBC W/Diff, Automatedon 02-20 Absolute Lymph 1.61 X10 3/uL Normal 0.83-4.51 [facility] Comment on above: Performed By: #### L 100.0100, L500.2500 ####[facility] [address] [place], [address] Absolute Neut 3.9 X10 3/uL Normal 2.0-7.7 [facility] Comment on above: Performed By: #### L 100.0100, L500.2500 ####[facility] [address] [place], [address] Basophils/100 WBC (Bld) 0.3 % Normal 0-1 [facility] Comment on above: Performed By: #### L 100.0100, L500.2500 ####[facility] [address] [place], [address] Eosinophils/100 WBC (Bld) 3.8 % Normal 0-5 [facility] Comment on above: Performed By: #### L 100.0100, L500.2500 ####[facility] [address] [place], [address] Erythrocyte distribution width (RBC) [Ratio] 12.8 % Normal 11.6-14.6 [facility] Comment on above: Performed By: #### L 100.0100, L500.2500 ####[facility] [address] [place], [address] Hematocrit (Bld) [Volume fraction] 32.2 % Low 37-47 [facility] Comment on above: Performed By: #### L 100.0100, L500.2500 ####[facility] [address] [place], [address] Hemoglobin (Bld) [Mass/Vol] 11.0 g/dL Low 12.0-15.0 [facility] Comment on above: Performed By: #### L 100.0100, L500.2500 ####[facility] [address] [place], [address] IG% 0.300 Normal 0.0-0.9 [facility] Comment on above: Result Comment: IG% - Immature Granulocytes (promyelocytes, myelocytes andmetamyelocytes) > 1% indicates that a LEFT SHIFT is Present. Performed By: #### L 100.0100, L500.2500 ####[facility] [address] [place], [address] Lymphocytes/100 WBC (Bld) 25.4 % Normal 19-41 [facility] Comment on above: Performed By: #### L 100.0100, L500.2500 ####[facility] [address] [place], [address] MCH (RBC) [Entitic mass] 30.9 pg Normal 27.0-32.0 [facility] Comment on above: Performed By: #### L 100.0100, L500.2500 ####[facility] [address] [place], [address] MCHC (RBC) [Mass/Vol] 34.2 g/dL Normal 32-36 [facility] Comment on above: Performed By: #### L 100.0100, L500.2500 ####[facility] [address] [place], [address] MCV (RBC) [Entitic vol] 90.4 fL Normal 81-99 [facility] Comment on above: Performed By: #### L 100.0100, L500.2500 ####[facility] [address] [place], [address] Monocytes/100 WBC (Bld) 8.3 % Normal 0-10 [facility] Comment on above: Performed By: #### L 100.0100, L500.2500 ####[facility] [address] [place], [address] Neutrophils/100 WBC (Bld) 61.9 % Normal 47-70 [facility] Comment on above: Performed By: #### L 100.0100, L500.2500 ####[facility] [address] [place], [address] Nucleated RBC (Bld) [#/Vol] 0 10*3/uL Normal 0-5 [facility] Comment on above: Performed By: #### L 100.0100, L500.2500 ####[facility] [address] [place], [address] Platelet mean volume (Bld) [Entitic vol] 11.0 fL Normal 6.2-12.0 [facility] Comment on above: Performed By: #### L 100.0100, L500.2500 ####[facility] [address] [place], [address] Platelets (Bld) [#/Vol] 148 10*3/uL Low 150-450 [facility] Comment on above: Performed By: #### L 100.0100, L500.2500 ####[facility] [address] [place], [address] RBC (Bld) [#/Vol] 3.56 10*6/uL Low 4.2-5.4 [facility] Comment on above: Performed By: #### L 100.0100, L500.2500 ####[facility] [address] [place], [address] RDW SD 42.3 fl Normal 35.1-43.9 [facility] Comment on above: Performed By: #### L 100.0100, L500.2500 ####[facility] [address] [place], [address] WBC (Bld) [#/Vol] 6.4 10*3/uL Normal 4.4-11.0 [facility] Comment on above: Performed By: #### L 100.0100, L500.2500 ####[facility] [address] [place], [address] Carbon dioxide, total [Moles /volume] in Central venous bloodOrdered By: Mellisa Cabrera on 03-10-2025 CO2 [Moles/Vol] 22.8 mmol/L 21.0-32.0 [facility] Chloride assayOrdered By: Amparo Cabrera on 03-10-2025 Chloride [Moles/Vol] 106 mmol/L 98-108 [facility] Emergency Department Summary on 03-10-2025 Emergency Department Summary Normal [facility] Eosinophil percentageOrdered By: Mellisa Cabrera on 03-10-2025 Eosinophils/100 WBC (Bld) 3.8 % 0-5 [facility] Epithelial cells.squamous LM Ql (Urine sed)Ordered By: Mellisa Cabrera on 03-10-2025 Epithelial cells.squamous LM.HPF (Urine sed) [#/Area] 0 /[HPF] 5-10 [facility] Erythrocyte distribution wid th (RBC) [Ratio]Ordered By: Mellisa Cabrera on 03-10-2025 Erythrocyte distribution width (RBC) [Entitic vol] 42.3 fL 35.1-43.9 [facility] Erythrocyte distribution wid th ratioOrdered By: Mellisa Cabrera on 03-10-2025 Erythrocyte distribution width (RBC) [Ratio] 12.8 % 11.6-14.6 [facility] Erythrocyte distribution wid th standard deviationOrdered By: Mellisa Cabrera on 03-10-2025 Erythrocyte distribution width (RBC) [Ratio] 42.3 fl 35.1-43.9 [facility] Estimation of creatinine julio cesar aranceOrdered By: Mellisa Cabrera on 03-10-2025 Estimated Creatinine Clearance Calc 51.73 ml/min 50-250 [facility] GFR/1.73 sq M.predicted kwame g non-blacks MDRD (S/P/Bld) [Vol rate/Area]Ordered By: Mellisa Cabrera on 03-10-2025 Estimated GFR (MDRD) Non-Af Amer 62 >60 [facility] Comment on above: mL/min/1.73m2 CKD-EP I Creatinine Equation (2020) Glomerular filtration rate ( GFR) estimation/1.73 sq m using serum, plasma, or whole bOrdered By: Mellisa Cabrera on 03-10-2025 GFR/1.73 sq M.predicted among non-blacks MDRD (S/P/Bld) [Vol rate/Area] 62 mL/min/{1.73_m2} >60 [facility] Comment on above: mL/min/1.73m2 CKD-EP I Creatinine Equation (2020) Glucose Ql (U)Ordered By: Amparo Cabrera on 03-10-2025 Urine Glucose (UA) Normal mg/dl Normal [facility] HIP, UNI W/ Pelvis 2-3 Views on 03-10-2025 HIP, UNI W/ Pelvis 2-3 Views Normal [facility] Hematocrit Auto (Bld) [Volum e fraction]Ordered By: Mellisa Cabrera on 03-10-2025 Hematocrit (Bld) [Volume fraction] 32.2 % Low 37-47 [facility] Hemoglobin measurementOrdere d By: Mellisa Cabrera on 03-10-2025 Hemoglobin (Bld) [Mass/Vol] 11.0 g/dL Low 12.0-15.0 [facility] Immature granulocytes/100 WB C Auto (Bld)Ordered By: Mellisa Cabrera on 03-10-2025 Immature granulocytes/100 WBC (Bld) 0.300 % 0.0-0.9 [facility] Comment on above: IG% - Immature Granu locytes (promyelocytes, myelocytes and metamyelocytes) > 1% indicates that a LEFT SHIFT is Present. Ketones Test strip Ql (U)Ord ered By: Mellisa Cabrera on 03-10-2025 Ketones Ql (U) Negative Negative [facility] Lymphocytes Auto (Unsp spec) [#/Vol]Ordered By: Mellisa Cabrera on 03-10-2025 Lymphocytes (Bld) [#/Vol] 1.61 10*3/uL 0.83-4.51 [facility] Lymphocytes/100 WBC Auto (Un sp spec)Ordered By: Mellisa Cabrera on 03-10-2025 Lymphocytes/100 WBC (Bld) 25.4 % 19-41 [facility] MCV (mean corpuscular volume ) determinationOrdered By: Mellisa Cabrera on 03-10-2025 MCV (RBC) [Entitic vol] 90.4 fL 81-99 [facility] Mean corpuscular hemoglobin (MCH) determinationOrdered By: Mellisa Cabrera on 03-10-2025 MCH (RBC) [Entitic mass] 30.9 pg 27.0-32.0 [facility] Mean corpuscular hemoglobin concentration (MCHC) determinationOrdered By: Mellisa Cabrera on 03-10-2025 MCHC (RBC) [Mass/Vol] 34.2 g/dL 32-36 [facility] Mean platelet volume determi nationOrdered By: Mellisa Cabrera on 03-10-2025 Platelet mean volume (Bld) [Entitic vol] 11.0 fL 6.2-12.0 [facility] Microscopic analysis of urin e for red blood cells (RBC)Ordered By: Mellisa Cabrera on 03-10-2025 Microscopic analysis of urine for red blood cells (RBC) 0 SEEN /hpf 0-5 [facility] Urine RBC 0 SEEN /hpf 0-5 [facility] Monocyte percentageOrdered B y: Mellisa Cabrera on 03-10-2025 Monocytes/100 WBC (Bld) 8.3 % 0-10 [facility] Mucus LM Ql (Urine sed)Order ed By: Mellisa Cabrera on 03-10-2025 Mucus Ql (Urine sed) 0 SEEN /hpf [facility] Neutrophil percentageOrdered By: Mellisa Cabrera on 03-10-2025 Neutrophils/100 WBC (Bld) 61.9 % 47-70 [facility] Nitrite Test strip Ql (U)Ord ered By: Mellisa Cabrera on 03-10-2025 Nitrite Ql (U) Negative Negative [facility] Nucleated red blood cell per centageOrdered By: Mellisa Cabrera on 03-10-2025 Nucleated RBC/100 WBC (Bld) [Ratio] 0 % 0-5 [facility] Platelet countOrdered By: Amparo Cabrera on 03-10-2025 Platelets (Bld) [#/Vol] 148 10*3/uL Low 150-450 [facility] Potassium (Unsp spec) [Mass/ Vol]Ordered By: Mellisa Cabrera on 03-10-2025 Potassium [Moles/Vol] 4.3 mmol/L 3.3-5.1 [facility] Potassium measurement (mass/ volume)Ordered By: Mellisa Cabrera on 03-10-2025 Potassium (Unsp spec) [Mass/Vol] 4.3 mmol/L 3.3-5.1 [facility] Protein Test strip Ql (U)Ord ered By: Mellisahema Cabrera on 03-10-2025 Protein Ql (U) 15 mg/dl High Negative [facility] RBC Auto (Bld) [#/Vol]Ordere d By: Mellisa Cabrera on 03-10-2025 RBC (Bld) [#/Vol] 3.56 10*6/uL Low 4.2-5.4 [facility] Serum creatinine measurement (mass/volume)Ordered By: Mellisa Cabrera on 03-10-2025 Creatinine [Mass/Vol] 0.97 mg/dL 0.70-1.20 [facility] Serum glucose measurement (m ass/volume)Ordered By: Mellisa Cabrera on 03-10-2025 Glucose [Mass/Vol] 139 mg/dL High 70-99 [facility] Serum or plasma calcium loco urement (mass/volume)Ordered By: Mellisa Cabrera on 03-10-2025 Calcium [Mass/Vol] 9.1 mg/dL 7.6-11.0 [facility] Serum or plasma urea nitroge n measurement (mass/volume)Ordered By: Mellisa Cabrera on 03-10-2025 Urea nitrogen [Mass/Vol] 20 mg/dL High 4-19 [facility] Sodium levelOrdered By: Mellisa Cabrera on 03-10-2025 Sodium [Moles/Vol] 140 mmol/L 133-145 [facility] Squamous epithelial cells de tection in urine sediment by light microscopyOrdered By: Mellisa Cabrera on 03-10-2025 Epithelial cells.squamous LM Ql (Urine sed) 0 SEEN /hpf 5-10 [facility] Urinalysis, Completeon 03-10 WBC 0-5 SEEN Normal 0-5 [facility] Comment on above: Order Comment: HUNTER CTOR TO SPECIFY Performed By: #### L 400.0001 ####[facility] [address] [place], [address] BACTERIA 0 SEEN Normal None Seen [facility] Comment on above: Order Comment: HUNTER CTOR TO SPECIFY Performed By: #### L 400.0001 ####[facility] [address] [place], [address] EPI,SQUAMOUS 0 SEEN Normal 5-10 [facility] Comment on above: Order Comment: COLLE CTOR TO SPECIFY Performed By: #### L 400.0001 ####[facility] [address] [place], [address] Mucus Ql (Urine sed) 0 SEEN Normal [facility] Comment on above: Order Comment: COLLE CTOR TO SPECIFY Performed By: #### L 400.0001 ####[facility] [address] [place], [address] RBC 0 SEEN Normal 0-5 [facility] Comment on above: Order Comment: HUNTER CTOR TO SPECIFY Performed By: #### L 400.0001 ####[facility] [address] [place], [address] Urine blood detectionOrdered By: Mellisa Cabrera on 03-10-2025 Urine Occult Blood Negative Negative [facility] Urine clarityOrdered By: Pastora Cabrera on 03-10-2025 Clarity (U) Clear Clear [facility] Urine color determinationOrd ered By: Mellisa Cabrera on 03-10-2025 Color (U) Yellow Yellow [facility] Urine glucose detectionOrder ed By: Mellisa Cabrera on 03-10-2025 Glucose Ql (U) Normal mg/dl Normal [facility] Urine leukocyte esterase det ection by dipstickOrdered By: Mellisa Cabrera on 03-10-2025 Leukocyte esterase Test strip Ql (U) 500 /ul High Negative [facility] Urine pHOrdered By: Mellisa peng on 03-10-2025 pH (U) 6.0 [pH] 5.0 - 8.0 [facility] Urine sediment bacteria coun t by microscopy (number/high power field)Ordered By: Mellisa Cabrera on 03-10-2025 Bacteria LM.HPF (Urine sed) [#/Area] 0 /[HPF] None Seen [facility] Urine specific gravity measu rementOrdered By: Mellisa Finneganier on 03-10-2025 Specific gravity (U) [Rel density] 1.015 1.002-1.03 0 [facility] Urine urobilinogen measureme ntOrdered By: Mellisa Deborah on 03-10-2025 Urobilinogen Ql (U) Normal mg/dl Normal [facility] Urobilinogen Ql (U)Ordered B y: Mellisa Deborah on 03-10-2025 Urine Urobilinogen Normal mg/dl Normal [facility] White blood cell (WBC) count Ordered By: Mellisahema Cabrera on 03-10-2025 WBC (Bld) [#/Vol] 6.4 10*3/uL 4.4-11.0 [facility] White blood cell countOrdere d By: Mellsiahema Cabrera on 03-10-2025 Urine WBC 0-5 SEEN /hpf 0-5 [facility] White blood cell count 0-5 SEEN /hpf 0-5 [facility] CNPNon [facility]09[facility]2025 [facility] MANSI CARO ([id number]) 1955 F Date Time Provider Department 03/09/25 LEYLA MURPHY During your visit today, we recorded the following information about you: Dipti Stewart 03/09/2025 12:16 PM Signed Spouse called inquiring status of RX for valbenazine (INGREZZA) 40 mg capsule. Informed Spouse that order was signed on 02/27/2025. Order has been faxed to [facility]: [phone]. Spouse provided phone number for pharmacy ([phone]) to follow up on this request. Leyla Zamudio MD 03/12/2025 7:42 AM Signed Notified by [facility] spec pharmacy Ingrezza is not on her [...] and is willing to rechallenge [facility] RN Date Reviewed: 02/27/2025 Reviewed by: Leyla [...] Encounter Status:Closed by DIPTI STEWART on 03/09/25 [facility] Valerie 03-01-2025 [facility] Telephone ([facility]) MANSI CARO ([id number]) 1955 F Date Time Provider Department 03/01/25 KALEN CASEY During your visit today, we recorded the following information about you: Kalen Casey, RT(R) 03/01/2025 3:28 PM Signed Hello, You have ordered an MRI on this patient with an implanted cardiac device. To clear the patient, as per our policy, patient will need a 2 view CXR prior to MRI scan. CXR is used to confirm there are no broken or abandoned leads. Thank you, Kalen Hall(R)(MR),[facility] MRI Safety Team Leyla Murphy MD 03/02/2025 [...] and is willing to rechallenge [facility] RN Date Reviewed: 02/27/2025 Reviewed by: Leyla Murphy MD - Fully Assessed Primary Visit Diagnosis:Presence of cardiac pacemaker [Z95.0] Order(s):XR CHEST 2V FRONTAL/LAT [6659769] Order #: [id number] FUTURE Prescriptions as of 03/02/2025 - Acetaminophen [...] on 03/01/25 [facility] CNPN Telephone ([facility]) MANSI CARO ([id number]) 1955 F Date Time Provider Department 03/01/25 [...] and is willing to rechallenge [facility] RN Date Reviewed: 02/27/2025 Reviewed by: Leyla [...] by [facility] Office Visit (NRMDN) MANSI CARO ([id number]) 1955 F Date Time Provider Department 02/27/25 3:30 PM LEYLA MURPHY During your visit today, we recorded the following information about you: Weight 62 kg Leyla Murphy MD 02/27/2025 4:44 PM Addendum It was a pleasure to see you today. We addressed the following diagnoses: Essential tremor (primary encounter diagnosis) Dyskinesia, tardive My recommendations are as follows: - Start taking Ingrezza 40 mg daily for mouth movements; prescription sent to [facility]. Once this is controlled [...] or you can send a message through [email or web address]. You can also now schedule and select appointments through [email or web address]. MD Jeffrey Marquez Kristin, MD 02/28/2025 9:12 AM Signed [facility] - FOLLOW UP EVALUATION The patient consented to the use of ambient [employer] software for draft documentation of the visit consistent with [facility]?s Notice of Privacy Practices. Jesus Manuel Freitas DO DO [address] [facility] [address] Dear Jesus Manuel Freitas DO, DO: I [...] that cannabis use during a visit to [place] temporarily alleviated her symptoms. She reports difficulty [...] activities: Yes (more content not included)... 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 Per [...] and is willing to rechallenge [facility] RN Date Reviewed: 02/27/2025 Reviewed by: Leyla [...] Status:Closed by DIPTI STEWART on 02/27/25 Normal [facility] Gastroenterology Visit Repor ton 02-14-2025 Gastroenterology Visit Report Normal [facility] Internal Control Consultant Office Visit Reporton 02-13-2025 Internal Control Consultant Office Visit Report Normal [facility] 36on 01-28-2025 36 S: Patient's spoke [...] to answer question Protocols used: Medication Question Ebki-NEULC-AQ Normal [facility] Erythropoietinon 01-24-2025 ERYTHROPOIETIN 10.1 mIU/mL Normal 2.6-18.5 [facility] Comment on above: Result Comment: [employer] DxI 800 Immunoassay SystemValues obtained with different assay methods or kits cannotbe used interchangeably. Results cannot be interpreted asabsolute evidence of the presence or absence of malignantdisease.Performed at: [facility] [place] [id number] Director: Bulmaro Nesbitt PhD, Phone: [phone] Performed By: #### L 503.6030, L500.2500, L100.9950, L3100.1350, L503.6550, L100.0100 ####[facility] [address] [place], [address] Oncology Visit Reporton Oncology Visit Report Normal [facility] Absolute lymphocyte countOrd ered By: Luigi Tinoco on 01-22-2025 Lymphocytes Auto (Unsp spec) [#/Vol] 2.11 10*3/uL 0.83-4.51 [facility] Absolute neutrophil countOrd ered By: Luigi Tinoco on 01-22-2025 Neutrophils (Bld) [#/Vol] 4.9 10*3/uL 2.0-7.7 [facility] Automated lymphocyte count a s percentage of total leukocytesOrdered By: Luigi Tinoco on 01-22-2025 Lymphocytes/100 WBC Auto (Unsp spec) 27.6 % 19-41 [facility] BUN/creatinine ratioOrdered By: Luigi Tinoco on 01-22-2025 Urea nitrogen/Creatinine [Mass ratio] 16.9 mg/mg 10-20 [facility] Basic Metabolic Profile (BMP )on 01-22-2025 Anion gap [Moles/Vol] 9 mmol/L Normal 5-15 [facility] Comment on above: Performed By: #### L 503.6030, L500.2500, L100.9950, L3100.1350, L503.6550, L100.0100 ####[facility] [address] [place], [address] BUN/CRE 16.9 RATIO Normal 10-20 [facility] Comment on above: Performed By: #### L 503.6030, L500.2500, L100.9950, L3100.1350, L503.6550, L100.0100 ####[facility] [address] [place], [address] Calcium [Mass/Vol] 9.1 mg/dL Normal 7.6-11.0 [facility] Comment on above: Performed By: #### L 503.6030, L500.2500, L100.9950, L3100.1350, L503.6550, L100.0100 ####[facility] [address] [place], [address] Chloride [Moles/Vol] 103 mmol/L Normal 96-108 [facility] Comment on above: Performed By: #### L 503.6030, L500.2500, L100.9950, L3100.1350, L503.6550, L100.0100 ####[facility] [address] [place], [address] CO2 [Moles/Vol] 27.6 mmol/L Normal 22.0-29.0 [facility] Comment on above: Performed By: #### L 503.6030, L500.2500, L100.9950, L3100.1350, L503.6550, L100.0100 ####[facility] [address] [place], [address] Creatinine [Mass/Vol] 1.17 mg/dL Normal 0.70-1.20 [facility] Comment on above: Performed By: #### L 503.6030, L500.2500, L100.9950, L3100.1350, L503.6550, L100.0100 ####[facility] [address] [place], [address] ECRCL 40.81 ml/min Low 50-250 [facility] Comment on above: Performed By: #### L 503.6030, L500.2500, L100.9950, L3100.1350, L503.6550, L100.0100 ####[facility] [address] [place], [address] GFR/1.73 sq M.predicted among non-blacks MDRD (S/P/Bld) [Vol rate/Area] 50 mL/min/{1.73_m2} Low >60 [facility] Comment on above: Result Comment: mL/m in/1.73m2 CKD-EPI Creatinine Equation (2020) Performed By: #### L 503.6030, L500.2500, L100.9950, L3100.1350, L503.6550, L100.0100 ####[facility] [address] [place], [address] Glucose [Mass/Vol] 207 mg/dL High 70-99 [facility] Comment on above: Performed By: #### L 503.6030, L500.2500, L100.9950, L3100.1350, L503.6550, L100.0100 ####[facility] [address] [place], [address] Potassium [Moles/Vol] 4.3 mmol/L Normal 3.3-5.1 [facility] Comment on above: Performed By: #### L 503.6030, L500.2500, L100.9950, L3100.1350, L503.6550, L100.0100 ####[facility] [address] [place], [address] Sodium [Moles/Vol] 140 mmol/L Normal 133-145 [facility] Comment on above: Performed By: #### L 503.6030, L500.2500, L100.9950, L3100.1350, L503.6550, L100.0100 ####[facility] [address] [place], [address] Urea nitrogen [Mass/Vol] 20 mg/dL High 4-19 [facility] Comment on above: Performed By: #### L 503.6030, L500.2500, L100.9950, L3100.1350, L503.6550, L100.0100 ####[facility] [address] [place], [address] Basophil percentageOrdered B y: Luigi Tinoco on 01-22-2025 Basophils/100 WBC (Bld) 0.5 % 0-1 [facility] CBC W/Diff, Automatedon Absolute Lymph 2.11 X10 3/uL Normal 0.83-4.51 [facility] Comment on above: Performed By: #### L 503.6030, L500.2500, L100.9950, L3100.1350, L503.6550, L100.0100 ####[facility] [address] [place], [address] Absolute Neut 4.9 X10 3/uL Normal 2.0-7.7 [facility] Comment on above: Performed By: #### L 503.6030, L500.2500, L100.9950, L3100.1350, L503.6550, L100.0100 ####[facility] [address] [place], [address] Basophils/100 WBC (Bld) 0.5 % Normal 0-1 [facility] Comment on above: Performed By: #### L 503.6030, L500.2500, L100.9950, L3100.1350, L503.6550, L100.0100 ####[facility] [address] [place], [address] Eosinophils/100 WBC (Bld) 1.3 % Normal 0-5 [facility] Comment on above: Performed By: #### L 503.6030, L500.2500, L100.9950, L3100.1350, L503.6550, L100.0100 ####[facility] [address] [place], [address] Erythrocyte distribution width (RBC) [Ratio] 12.5 % Normal 11.6-14.6 [facility] Comment on above: Performed By: #### L 503.6030, L500.2500, L100.9950, L3100.1350, L503.6550, L100.0100 ####[facility] [address] [place], [address] Hematocrit (Bld) [Volume fraction] 36.8 % Low 37-47 [facility] Comment on above: Performed By: #### L 503.6030, L500.2500, L100.9950, L3100.1350, L503.6550, L100.0100 ####[facility] [address] [place], [address] Hemoglobin (Bld) [Mass/Vol] 11.8 g/dL Low 12.0-15.0 [facility] Comment on above: Performed By: #### L 503.6030, L500.2500, L100.9950, L3100.1350, L503.6550, L100.0100 ####[facility] [address] [place], [address] IG% 0.400 Normal 0.0-0.9 [facility] Comment on above: Result Comment: IG% - Immature Granulocytes (promyelocytes, myelocytes andmetamyelocytes) > 1% indicates that a LEFT SHIFT is Present. Performed By: #### L 503.6030, L500.2500, L100.9950, L3100.1350, L503.6550, L100.0100 ####[facility] [address] [place], [address] Lymphocytes/100 WBC (Bld) 27.6 % Normal 19-41 [facility] Comment on above: Performed By: #### L 503.6030, L500.2500, L100.9950, L3100.1350, L503.6550, L100.0100 ####[facility] [address] [place], [address] MCH (RBC) [Entitic mass] 30.3 pg Normal 27.0-32.0 [facility] Comment on above: Performed By: #### L 503.6030, L500.2500, L100.9950, L3100.1350, L503.6550, L100.0100 ####[facility] [address] [place], [address] MCHC (RBC) [Mass/Vol] 32.1 g/dL Normal 32-36 [facility] Comment on above: Performed By: #### L 503.6030, L500.2500, L100.9950, L3100.1350, L503.6550, L100.0100 ####[facility] [address] [place], [address] MCV (RBC) [Entitic vol] 94.4 fL Normal 81-99 [facility] Comment on above: Performed By: #### L 503.6030, L500.2500, L100.9950, L3100.1350, L503.6550, L100.0100 ####[facility] [address] [place], [address] Monocytes/100 WBC (Bld) 6.0 % Normal 0-10 [facility] Comment on above: Performed By: #### L 503.6030, L500.2500, L100.9950, L3100.1350, L503.6550, L100.0100 ####[facility] [address] [place], [address] Neutrophils/100 WBC (Bld) 64.2 % Normal 47-70 [facility] Comment on above: Performed By: #### L 503.6030, L500.2500, L100.9950, L3100.1350, L503.6550, L100.0100 ####[facility] [address] [place], [address] Nucleated RBC (Bld) [#/Vol] 0 10*3/uL Normal 0-5 [facility] Comment on above: Performed By: #### L 503.6030, L500.2500, L100.9950, L3100.1350, L503.6550, L100.0100 ####[facility] [address] [place], [address] Platelet mean volume (Bld) [Entitic vol] 10.8 fL Normal 6.2-12.0 [facility] Comment on above: Performed By: #### L 503.6030, L500.2500, L100.9950, L3100.1350, L503.6550, L100.0100 ####[facility] [address] [place], [address] Platelets (Bld) [#/Vol] 143 10*3/uL Low 150-450 [facility] Comment on above: Performed By: #### L 503.6030, L500.2500, L100.9950, L3100.1350, L503.6550, L100.0100 ####[facility] [address] [place], [address] RBC (Bld) [#/Vol] 3.90 10*6/uL Low 4.2-5.4 [facility] Comment on above: Performed By: #### L 503.6030, L500.2500, L100.9950, L3100.1350, L503.6550, L100.0100 ####[facility] [address] [place], [place], [phone](188) RDW SD 43.6 fl Normal 35.1-43.9 [facility] Comment on above: Performed By: #### L 503.6030, L500.2500, L100.9950, L3100.1350, L503.6550, L100.0100 ####[facility] [address] [place], [place], [id number](015) WBC (Bld) [#/Vol] 7.7 10*3/uL Normal 4.4-11.0 [facility] Comment on above: Performed By: #### L 503.6030, L500.2500, L100.9950, L3100.1350, L503.6550, L100.0100 ####[facility] [address] [place], [place], [address] Calculated total iron bindin g capacityOrdered By: Luigi Tinoco on 01-22-2025 Total Iron Binding Capacity 248 ug/dL Low 250-450 [facility] Carbon dioxide measurementOr dered By: Luigi Tinoco on 01-22-2025 CO2 [Moles/Vol] 27.6 mmol/L 22.0-29.0 [facility] Chloride measurementOrdered By: Luigi Tinoco on 01-22-2025 Chloride [Moles/Vol] 103 mmol/L 96-108 [facility] Eosinophil percentageOrdered By: Luigi Tinoco on 01-22-2025 Eosinophils/100 WBC (Bld) 1.3 % 0-5 [facility] Erythrocyte distribution wid th (RBC) [Ratio]Ordered By: Luigi Tinoco on 01-22-2025 Erythrocyte distribution width (RBC) [Entitic vol] 43.6 fL 35.1-43.9 [facility] Erythrocyte distribution wid th ratioOrdered By: Luigi Tinoco on 01-22-2025 Erythrocyte distribution width (RBC) [Ratio] 12.5 % 11.6-14.6 [facility] Erythrocyte distribution wid th standard deviationOrdered By: Luigi Tinoco on 01-22-2025 Erythrocyte distribution width (RBC) [Ratio] 43.6 fl 35.1-43.9 [facility] Erythropoietin (EPO) QnOrder ed By: Luigi Tinoco on 01-22-2025 Erythropoietin 10.1 mIU/mL 2.6-18.5 [facility] Comment on above: Curious Hat el DxI 800 Immunoassay SystemValues obtained with different assay methods or kits cannotbe used interchangeably. Results cannot be interpreted asabsolute evidence of the presence or absence of malignantdisease.Performed at: [facility] [id number] Director: Bulmaro Nesbitt PhD, Phone: [phone] Estimation of creatinine julio cesar aranceOrdered By: Luigi Tinoco on 01-22-2025 Estimated Creatinine Clearance Calc 40.81 ml/min Low 50-250 [facility] Ferritinon 01-22-2025 Ferritin [Mass/Vol] 95 ng/mL Normal 22-378 [facility] Comment on above: Performed By: #### L 503.6030, L500.2500, L100.9950, L3100.1350, L503.6550, L100.0100 ####[facility] [address] [place], [address] GFR/1.73 sq M.predicted kwame g non-blacks MDRD (S/P/Bld) [Vol rate/Area]Ordered By: Luigi Tinoco on 01-22-2025 Estimated GFR (MDRD) Non-Af Amer 50 Low >60 [facility] Comment on above: mL/min/1.73m2 CKD-EP I Creatinine Equation (2020) Glomerular filtration rate ( GFR) estimation/1.73 sq m using serum, plasma, or whole bOrdered By: Luigi Tinoco on 01-22-2025 GFR/1.73 sq M.predicted among non-blacks MDRD (S/P/Bld) [Vol rate/Area] 50 mL/min/{1.73_m2} Low >60 [facility] Comment on above: mL/min/1.73m2 CKD-EP I Creatinine Equation (2020) Hematocrit Auto (Bld) [Volum e fraction]Ordered By: Luigi Tinoco on 01-22-2025 Hematocrit (Bld) [Volume fraction] 36.8 % Low 37-47 [facility] Hemoglobin (Reticulocytes) [ Entitic mass]Ordered By: Luigi Tinoco on 01-22-2025 Reticulocyte Hemoglobin Equivalent 35.1 pg High 30-35 [facility] Hemoglobin measurementOrdere d By: Luigi Tinoco on 01-22-2025 Hemoglobin (Bld) [Mass/Vol] 11.8 g/dL Low 12.0-15.0 [facility] Immature granulocytes/100 WB C Auto (Bld)Ordered By: Luigi Tinoco on 01-22-2025 Immature granulocytes/100 WBC (Bld) 0.400 % 0.0-0.9 [facility] Comment on above: IG% - Immature Granu locytes (promyelocytes, myelocytes and metamyelocytes) > 1% indicates that a LEFT SHIFT is Present. Immature reticulocyte fracti onOrdered By: Luigi Tinoco on 01-22-2025 Immature Reticulocyte Fraction 8.80 % 3.00-15.90 [facility] Iron (Unsp spec) [Mass/Mass] Ordered By: Luigi Tinoco on 01-22-2025 Iron [Mass/Vol] 74 ug/dL 50-170 [facility] Iron measurement (mass/mass) Ordered By: Luigi Tinoco on 01-22-2025 Iron (Unsp spec) [Mass/Mass] 74 ug/dL 50-170 [facility] Iron saturation [Mass fracti on]Ordered By: Luigi Tinoco on 01-22-2025 Iron Saturation 30.0 % 15.0-55.0 [facility] Iron+Iron Binding Capacityon 01-22-2025 Iron [Mass/Vol] 74 ug/dL Normal 50-170 [facility] Comment on above: Performed By: #### L 503.6030, L500.2500, L100.9950, L3100.1350, L503.6550, L100.0100 ####[facility] [address] [place], [address] IRON SATURATION 30.0 Normal 15.0-55.0 [facility] Comment on above: Performed By: #### L 503.6030, L500.2500, L100.9950, L3100.1350, L503.6550, L100.0100 ####[facility] [address] [place], [address] TIBC 248 ug/dL Low 250-450 [facility] Comment on above: Performed By: #### L 503.6030, L500.2500, L100.9950, L3100.1350, L503.6550, L100.0100 ####[facility] [address] [place], [address] UIBC 174 ug/dL Low 228-428 [facility] Comment on above: Performed By: #### L 503.6030, L500.2500, L100.9950, L3100.1350, L503.6550, L100.0100 ####[facility] [address] [place], [address] Lymphocytes Auto (Unsp spec) [#/Vol]Ordered By: Luigi Tinoco on 01-22-2025 Lymphocytes (Bld) [#/Vol] 2.11 10*3/uL 0.83-4.51 [facility] Lymphocytes/100 WBC Auto (Un sp spec)Ordered By: Luigi Tinoco on 01-22-2025 Lymphocytes/100 WBC (Bld) 27.6 % 19-41 [facility] MCV (mean corpuscular volume ) determinationOrdered By: Luigi Tinoco on 01-22-2025 MCV (RBC) [Entitic vol] 94.4 fL 81-99 [facility] Mean corpuscular hemoglobin (MCH) determinationOrdered By: Luigi Tinoco on 01-22-2025 MCH (RBC) [Entitic mass] 30.3 pg 27.0-32.0 [facility] Mean corpuscular hemoglobin concentration (MCHC) determinationOrdered By: Luigi Tinoco on 01-22-2025 MCHC (RBC) [Mass/Vol] 32.1 g/dL 32-36 [facility] Mean platelet volume determi nationOrdered By: [facility] Tinoco on 01-22-2025 Platelet mean volume (Bld) [Entitic vol] 10.8 fL 6.2-12.0 [facility] Monocyte percentageOrdered B y: Luigi Tinoco on 01-22-2025 Monocytes/100 WBC (Bld) 6.0 % 0-10 [facility] Neutrophil percentageOrdered By: [facility] Tinoco on 01-22-2025 Neutrophils/100 WBC (Bld) 64.2 % 47-70 [facility] No Panel InformationOrdered By: Luigi Tinoco on 01-22-2025 Unsaturated Iron Binding Capacity 174 ug/dL Low 228-428 [facility] 174 ug/dL Low 228-428 [facility] Nucleated red blood cell per centageOrdered By: Luigi Tinoco on 01-22-2025 Nucleated RBC/100 WBC (Bld) [Ratio] 0 % 0-5 [facility] Platelet countOrdered By: Brian Tinoco on 01-22-2025 Platelets (Bld) [#/Vol] 143 10*3/uL Low 150-450 [facility] RBC Auto (Bld) [#/Vol]Ordere d By: Luigi Tinoco on 01-22-2025 RBC (Bld) [#/Vol] 3.90 10*6/uL Low 4.2-5.4 [facility] Retic Panelon 01-22-2025 IM RET FRACTION 8.80 Normal 3.00-15.90 [facility] Comment on above: Performed By: #### L 503.6030, L500.2500, L100.9950, L3100.1350, L503.6550, L100.0100 ####[facility] [address] [place], [address] RET-HE 35.1 pg High 30-35 [facility] Comment on above: Performed By: #### L 503.6030, L500.2500, L100.9950, L3100.1350, L503.6550, L100.0100 ####[facility] [address] [place], [address] Retic Count 1.22 Normal 0.5-1.5 [facility] Comment on above: Performed By: #### L 503.6030, L500.2500, L100.9950, L3100.1350, L503.6550, L100.0100 ####[facility] [address] [place], [place], [id number] Reticulocyte hemoglobin equi valent (RET-He) measurementOrdered By: Luigi Tinoco on 01-22-2025 Hemoglobin (Reticulocytes) [Entitic mass] 35.1 pg High 30-35 [facility] Reticulocytes Auto (Bld) [#/ Vol]Ordered By: Luigi Tinoco on 01-22-2025 Reticulocyte Count 1.22 % 0.5-1.5 [facility] Reticulocytes/100 RBC (Bld) 1.22 % 0.5-1.5 [facility] Serum creatinine measurement (mass/volume)Ordered By: Luigi Tinoco on 01-22-2025 Creatinine [Mass/Vol] 1.17 mg/dL 0.70-1.20 [facility] Serum glucose measurement (m ass/volume)Ordered By: Luigi Tinoco on 01-22-2025 Glucose [Mass/Vol] 207 mg/dL High 70-99 [facility] Serum or plasma anion gap de termination (moles/volume)Ordered By: Luigi Tinoco on 01-22-2025 Anion gap [Moles/Vol] 9 mmol/L 5-15 [facility] Serum or plasma calcium loco urement (mass/volume)Ordered By: Luigi Tinoco on 01-22-2025 Calcium [Mass/Vol] 9.1 mg/dL 7.6-11.0 [facility] Serum or plasma erythropoiet in (EPO) measurement (units/volume)Ordered By: Luigi Tinoco on 01-22-2025 Erythropoietin (EPO) Qn 10.1 mIU/mL 2.6-18.5 [facility] Comment on above: Paulo Ricebook UniC el DxI 800 Immunoassay SystemValues obtained with different assay methods or kits cannotbe used interchangeably. Results cannot be interpreted asabsolute evidence of the presence or absence of malignantdisease.Performed at: [facility] [id number] Director: Bulmaro Nesbitt PhD, Phone: [phone] Serum or plasma ferritin donald surement (mass/volume)Ordered By: Luigi Tinoco on 01-22-2025 Ferritin [Mass/Vol] 95 ng/mL 22-378 [facility] Serum or plasma iron saturat ion measurement (mass fraction)Ordered By: Luigi Tinoco on 01-22-2025 Iron saturation [Mass fraction] 30.0 % 15.0-55.0 [facility] Serum or plasma potassium me asurementOrdered By: [facility] on 01-22-2025 Potassium [Moles/Vol] 4.3 mmol/L 3.3-5.1 [facility] Serum or plasma sodium measu rement (moles/volume)Ordered By: Luigi Tinoco on 01-22-2025 Sodium [Moles/Vol] 140 mmol/L 133-145 [facility] Serum or plasma urea nitroge n measurement (mass/volume)Ordered By: Luigi Tinoco on 01-22-2025 Urea nitrogen [Mass/Vol] 20 mg/dL High 4-19 [facility] White blood cell (WBC) count Ordered By: Luigi Tinoco on 01-22-2025 WBC (Bld) [#/Vol] 7.7 10*3/uL 4.4-11.0 [facility] CNPNon 01-19-2025 CNPN Telephone (PASCALEN) MIKHAILOFELIAMANSI Garrido ([id number]) 1955 F Date Time Provider Department 01/19/25 [...] has been notified of appt change via [email or web address] message. Dipti Pat Allergies As of Date: 01/19/2025 Noted Allergy Reaction LIPITOR (ATORVASTATIN CALCIUM) 04/03/2010 Comments: Heart racing; 07/04/10 patient states that she had started a lot of medication at this time and the she did not have a true allergic reaction and is willing to rechallenge [facility] RN Date Reviewed: 05/17/2024 Reviewed by: Yadira [...] Status:Closed by DIPTI STEWART on 01/19/25 Normal [facility] CT CHEST WO IVCONon 01-19-20 CT CHEST WO IVCON * * *Final Report* * * DATE OF EXAM: Jan 19 2025 10:24AM [place] 0541 - CT CHEST WO IVCON / [...] significantly enlarged lymph nodes in the chest. Network Contractor: MARC Transcribe Date/Time: Jan 23 2025 7:44P Dictated by : MARIANELA WILSON MD This examination was interpreted and the report reviewed and electronically signed by: MARIANELA WILSON MD on Jan 23 2025 7:49PM EST [id number] Normal [facility] Cardiology Visit Reporton Cardiology Visit Report Normal [facility] MRA Neck WITH and W/O Contra ston 12-22-2024 MRA Neck WITH and W/O Contrast Normal [facility] Pelvic (Non )on 11-24 Pelvic (Non ) Normal [facility] Calprotectin, Stoolon [address] 190 ug/g Abnormal 0-120 [facility] Comment on above: Result Comment: Conc entration Interpretation Follow-Up< 5 - 50 ug/g Normal None>50 -120 ug/g Borderline Re-evaluate in 4-6 weeks >120 ug/g Abnormal Repeat as clinically indicatedPerformed at: [facility] [place] [id number] Director: Stanton Vargas MD, Phone: [phone] Performed By: #### L 7000.0700, L7000.0750 ####[facility] [address] [place], [address] MR/ELIE.BVSon 12-19-2024 MR/BMS.BVS Normal [facility] L7000.0750on 12-18-2024 P ELASTASE,FECA 416 Normal >200 [facility] Comment on above: Result Comment: Resu lt Units: ug Elast./g Severe Pancreatic Insufficiency: <100 Moderate Pancreatic Insufficiency: 100 - 200 Normal: >200Performed at: [facility] [place] [id number] Director: Stanton Vargas MD, Phone: [phone] Performed By: #### L 7000.0700, L7000.0750 ####[facility] [address] [place], [place], [address] 36on 12-16-2024 36 S: Patient spoke wit h CAC nurse regarding abdominal pain B: Onset of symptoms/concern few months A: Patient's concerned about 05/31 constant lower abdominal pain. He advises she was dx with ischemic colitis in June. They deny fever, deny n/v/d, deny constipation. He advises oxycodone worked but GI will not give them anymore. MRA scheduled first week of Dec. He states they saw an ROAD EQUIPMENT OPERATOR earlier this week who recommended pain mgmt. [...] Protocols used: Abdominal Pain - ADULT-AH Normal [facility] Calprotectin stoolOrdered By : Rosa Rodriguez on 12-15-2024 Calprotectin stool 190 ug/g High 0-120 [facility] Comment on above: Concentration Interp retation Follow-Up< 5 - 50 ug/g Normal None>50 -120 ug/g Borderline Re-evaluate in 4-6 weeks >120 ug/g Abnormal Repeat as clinically indicatedPerformed at: [facility] [id number] Director: Stanton Vargas MD, Phone: [phone] Stool Calprotectin 190 ug/g High 0-120 [facility] Comment on above: Concentration Interp retation Follow-Up< 5 - 50 ug/g Normal None>50 -120 ug/g Borderline Re-evaluate in 4-6 weeks >120 ug/g Abnormal Repeat as clinically indicatedPerformed at: [facility] [id number] Director: Stanton Vargas MD, Phone: [phone] Elastase.pancreatic (Stl) [M ass/Mass]Ordered By: Rosa Rodriguez on 12-15-2024 Stool Pancreatic Elastase 416 >200 [facility] Comment on above: Result Units: ug Stephanie st./g Severe Pancreatic Insufficiency: <100 Moderate Pancreatic Insufficiency: 100 - 200 Normal: >200Performed at: [facility] [id number] Director: Stanton Vargas MD, Phone: [phone] Stool pancreatic elastase me asurement (mass/mass)Ordered By: Roas Rodriguez on 12-15-2024 Elastase.pancreatic (Stl) [Mass/Mass] 416 >200 [facility] Comment on above: Result Units: ug Stephanie st./g Severe Pancreatic Insufficiency: <100 Moderate Pancreatic Insufficiency: 100 - 200 Normal: >200Performed at: [facility] [id number] Director: Stanton Vargas MD, Phone: [phone] No Panel Informationon 12-13 [facility] Gastroenterology Visit Repor ton 12-12-2024 Gastroenterology Visit Report Normal [facility] Cardiology Visit Reporton Cardiology Visit Report Normal [facility] 36on 11-24-2024 36 Name of caller: Beatrice lobo Contact phone number: [phone] Relationship to Patient: spouse/SO Provider: John Practice: [facility] Chief Complaint/Reason for Call: Patient , Beatrice, is calling to follow up with Dr. Lopez after patient appointment with her Gasteoenterologist. He is requesting a call back to discuss what happened at her appointment regarding her colitis diagnosis. He can be reached at [phone]. Best time of day caller can be reached: Any Patient advised that office/PCP has 24-48 business hours to return their call: N/A Normal [facility] Gastroenterology Visit Repor ton 11-23-2024 Gastroenterology Visit Report Normal [facility] Abdomen/Pelvis W IV Cont ONL Yon 11-18-2024 Abdomen/Pelvis W IV Cont ONLY Normal [facility] Absolute neutrophil countOrd ered By: Breann East on 11-18-2024 Neutrophils (Bld) [#/Vol] 3.3 10*3/uL 2.0-7.7 [facility] Albumin to globulin ratioOrd ered By: Breann East on 11-18-2024 Albumin/Globulin [Mass ratio] 0.9 {ratio} 0.9-2.4 [facility] Basophil percentageOrdered B y: Breann East on 11-18-2024 Basophils/100 WBC (Bld) 0.4 % 0-1 [facility] Bilirubin Test strip Ql (U)O rdered By: Breann East on 11-18-2024 Bilirubin Ql (U) Negative Negative [facility] Bilirubin, totalOrdered By: Breann East on 11-18-2024 Bilirubin [Mass/Vol] 0.30 mg/dL 0.20-1.00 [facility] Comment on above: For patients on eltr ombopag therapy, use of Dimension [place] TBIL is not recommended. Blood urea nitrogen (BUN)/cr eatinine ratioOrdered By: Breann East on 11-18-2024 Urea nitrogen/Creatinine [Mass ratio] 26.5 mg/mg High 09-10 [facility] CBC W/Diff, Automatedon 10-23 Absolute Lymph 2.93 X10 3/uL Normal 0.83-4.51 [facility] Comment on above: Performed By: #### L 100.0100, L500.4050, L501.2450 ####[facility] [address] [place], [address] Absolute Neut 3.3 X10 3/uL Normal 2.0-7.7 [facility] Comment on above: Performed By: #### L 100.0100, L500.4050, L501.2450 ####[facility] [address] [place], [address] Basophils/100 WBC (Bld) 0.4 % Normal 0-1 [facility] Comment on above: Performed By: #### L 100.0100, L500.4050, L501.2450 ####[facility] [address] [place], [address] Eosinophils/100 WBC (Bld) 2.0 % Normal 0-5 [facility] Comment on above: Performed By: #### L 100.0100, L500.4050, L501.2450 ####[facility] [address] [place], [address] Erythrocyte distribution width (RBC) [Ratio] 13.8 % Normal 11.6-14.6 [facility] Comment on above: Performed By: #### L 100.0100, L500.4050, L501.2450 ####[facility] [address] [place], [address] Hematocrit (Bld) [Volume fraction] 39.2 % Normal 37-47 [facility] Comment on above: Performed By: #### L 100.0100, L500.4050, L501.2450 ####[facility] [address] [place], [address] Hemoglobin (Bld) [Mass/Vol] 12.7 g/dL Normal 12.0-15.0 [facility] Comment on above: Performed By: #### L 100.0100, L500.4050, L501.2450 ####[facility] [address] [place], [address] IG% 0.100 Normal 0.0-0.9 [facility] Comment on above: Result Comment: IG% - Immature Granulocytes (promyelocytes, myelocytes andmetamyelocytes) > 1% indicates that a LEFT SHIFT is Present. Performed By: #### L 100.0100, L500.4050, L501.2450 ####[facility] [address] [place], [address] Lymphocytes/100 WBC (Bld) 42.7 % High 19-41 [facility] Comment on above: Performed By: #### L 100.0100, L500.4050, L501.2450 ####[facility] [address] [place], [address] MCH (RBC) [Entitic mass] 30.2 pg Normal 27.0-32.0 [facility] Comment on above: Performed By: #### L 100.0100, L500.4050, L501.2450 ####[facility] [address] [place], [address] MCHC (RBC) [Mass/Vol] 32.4 g/dL Normal 32-36 [facility] Comment on above: Performed By: #### L 100.0100, L500.4050, L501.2450 ####[facility] [address] [place], [address] MCV (RBC) [Entitic vol] 93.3 fL Normal 81-99 [facility] Comment on above: Performed By: #### L 100.0100, L500.4050, L501.2450 ####[facility] [address] [place], [address] Monocytes/100 WBC (Bld) 6.7 % Normal 0-10 [facility] Comment on above: Performed By: #### L 100.0100, L500.4050, L501.2450 ####[facility] [address] [place], [address] Neutrophils/100 WBC (Bld) 48.1 % Normal 47-70 [facility] Comment on above: Performed By: #### L 100.0100, L500.4050, L501.2450 ####[facility] [address] [place], [address] Nucleated RBC (Bld) [#/Vol] 0 10*3/uL Normal 0-5 [facility] Comment on above: Performed By: #### L 100.0100, L500.4050, L501.2450 ####[facility] [address] [place], [address] Platelet mean volume (Bld) [Entitic vol] 11.7 fL Normal 6.2-12.0 [facility] Comment on above: Performed By: #### L 100.0100, L500.4050, L501.2450 ####[facility] [address] [place], [address] Platelets (Bld) [#/Vol] 153 10*3/uL Normal 150-450 [facility] Comment on above: Performed By: #### L 100.0100, L500.4050, L501.2450 ####[facility] [address] [place], [address] RBC (Bld) [#/Vol] 4.20 10*6/uL Normal 4.2-5.4 [facility] Comment on above: Performed By: #### L 100.0100, L500.4050, L501.2450 ####[facility] [address] [place], [address] RDW SD 47.0 fl High 35.1-43.9 [facility] Comment on above: Performed By: #### L 100.0100, L500.4050, L501.2450 ####[facility] [address] [place], [address] WBC (Bld) [#/Vol] 6.9 10*3/uL Normal 4.4-11.0 [facility] Comment on above: Performed By: #### L 100.0100, L500.4050, L501.2450 ####[facility] [address] [place], [address] Carbon dioxide measurementOr dered By: Breann East on 11-18-2024 CO2 [Moles/Vol] 29.0 mmol/L 21.0-32.0 [facility] Chloride measurementOrdered By: Breann East on 11-18-2024 Chloride [Moles/Vol] 107 mmol/L 98-107 [facility] Comprehensive Metabolic Prof ilon 11-18-2024 Albumin [Mass/Vol] 3.6 g/dL Normal 3.2-5.0 [facility] Comment on above: Performed By: #### L 100.0100, L500.4050, L501.2450 ####[facility] [address] [place], [address] Albumin/Globulin [Mass ratio] 0.9 {ratio} Normal 0.9-2.4 [facility] Comment on above: Performed By: #### L 100.0100, L500.4050, L501.2450 ####[facility] [address] [place], [address] ALK P 52 U/L Normal 45-117 [facility] Comment on above: Performed By: #### L 100.0100, L500.4050, L501.2450 ####[facility] [address] [place], [address] ALT [Catalytic activity/Vol] 21 U/L Normal 13-56 [facility] Comment on above: Performed By: #### L 100.0100, L500.4050, L501.2450 ####[facility] [address] [place], [address] AST [Catalytic activity/Vol] 19 U/L Normal 15-37 [facility] Comment on above: Performed By: #### L 100.0100, L500.4050, L501.2450 ####[facility] [address] [place], [address] Bilirubin [Mass/Vol] 0.30 mg/dL Normal 0.20-1.00 [facility] Comment on above: Result Comment: For patients on eltrombopag therapy, use of Dimension [place] TBIL is not recommended. Performed By: #### L 100.0100, L500.4050, L501.2450 ####[facility] [address] [place], [address] BUN/CRE 26.5 RATIO High 10-20 [facility] Comment on above: Performed By: #### L 100.0100, L500.4050, L501.2450 ####[facility] [address] [place], [address] CA,Total 9.2 mg/dL Normal 8.5-10.1 [facility] Comment on above: Performed By: #### L 100.0100, L500.4050, L501.2450 ####[facility] [address] [place], [address] Chloride [Moles/Vol] 107 mmol/L Normal 98-107 [facility] Comment on above: Performed By: #### L 100.0100, L500.4050, L501.2450 ####[facility] [address] [place], [address] CO2 [Moles/Vol] 29.0 mmol/L Normal 21.0-32.0 [facility] Comment on above: Performed By: #### L 100.0100, L500.4050, L501.2450 ####[facility] [address] [place], [address] Creatinine [Mass/Vol] 1.02 mg/dL Normal 0.55-1.02 [facility] Comment on above: Result Comment: The validity of the calculated GFR GFRAA in patients over70 years has not been determined. Clinical correlation isessential. Performed By: #### L 100.0100, L500.4050, L501.2450 ####[facility] [facility] [address] [place], [address] EST GFR - AA 69 mL/min Normal >60 [facility] Comment on above: Result Comment: Afri can Cameroonian GFR Calc Performed By: #### L 100.0100, L500.4050, L501.2450 ####[facility] [address] [place], [address] GAP 3 Low 5-15 [facility] Comment on above: Performed By: #### L 100.0100, L500.4050, L501.2450 ####[facility] [address] [place], [address] GFR/1.73 sq M.predicted among non-blacks MDRD (S/P/Bld) [Vol rate/Area] 57 mL/min/{1.73_m2} Low >60 [facility] Comment on above: Result Comment: Non- GFR Calc Performed By: #### L 100.0100, L500.4050, L501.2450 ####[facility] [address] [place], [address] Globulin (S) [Mass/Vol] 3.8 g/dL Normal 2.2-4.2 [facility] Comment on above: Performed By: #### L 100.0100, L500.4050, L501.2450 ####[facility] [address] [place], [address] Glucose [Mass/Vol] 209 mg/dL High 74-106 [facility] Comment on above: Result Comment: Gluc ose result greater than or equal to 200 mg/dLsuggests DIABETES MELLITUS per A.D.A. criteria. Performed By: #### L 100.0100, L500.4050, L501.2450 ####[facility] [address] [place], [address] Potassium [Moles/Vol] 4.4 mmol/L Normal 3.5-5.1 [facility] Comment on above: Performed By: #### L 100.0100, L500.4050, L501.2450 ####[facility] [address] [place], [address] Sodium [Moles/Vol] 138 mmol/L Normal 136-145 [facility] Comment on above: Performed By: #### L 100.0100, L500.4050, L501.2450 ####[facility] [address] [place], [address] T PROT 7.4 g/dL Normal 6.4-8.2 [facility] Comment on above: Performed By: #### L 100.0100, L500.4050, L501.2450 ####[facility] [address] [place], [address] Urea nitrogen [Mass/Vol] 27 mg/dL High 7-18 [facility] Comment on above: Performed By: #### L 100.0100, L500.4050, L501.2450 ####[facility] [address] [place], [address] Emergency Department Summary on 11-18-2024 Emergency Department Summary Normal [facility] Eosinophil percentageOrdered By: Breann East on 11-18-2024 Eosinophils/100 WBC (Bld) 2.0 % 0-5 [facility] Epithelial cells.squamous LM Ql (Urine sed)Ordered By: Breann East on 11-18-2024 Epithelial cells.squamous LM.HPF (Urine sed) [#/Area] 0 /[HPF] 5-10 [facility] Erythrocyte distribution wid th (RBC) [Ratio]Ordered By: Breann East on 11-18-2024 Erythrocyte distribution width (RBC) [Entitic vol] 47.0 fL High 35.1-43.9 [facility] Erythrocyte distribution wid th ratioOrdered By: Breann East on 11-18-2024 Erythrocyte distribution width (RBC) [Ratio] 13.8 % 11.6-14.6 [facility] Estimated glomerular filtrat ion rate (GFR) AmericanOrdered By: Breann East on 11-18-2024 Estimated GFR (MDRD) Amer 69 mL/min >60 [facility] Comment on above: GFR Calc Glomerular filtration rate ( GFR) estimationOrdered By: Breann East on 11-18-2024 Estimated GFR (MDRD) Non-Af Amer 57 mL/min Low >60 [facility] Comment on above: Non- GFR Calc Glucose Ql (U)Ordered By: Tanya East on 11-18-2024 Glucose (U) [Mass/Vol] 1000 mg/dL High Normal [facility] Glucose measurementOrdered B y: Breann East on 11-18-2024 Glucose [Mass/Vol] 209 mg/dL High 74-106 [facility] Comment on above: Glucose result great er than or equal to 200 mg/dLsuggests DIABETES MELLITUS per A.D.A. criteria. Hematocrit Auto (Bld) [Volum e fraction]Ordered By: Breann East on 11-18-2024 Hematocrit (Bld) [Volume fraction] 39.2 % 37-47 [facility] Hemoglobin measurementOrdere d By: Breann East on 11-18-2024 Hemoglobin (Bld) [Mass/Vol] 12.7 g/dL 12.0-15.0 [facility] Immature granulocytes/100 WB C Auto (Bld)Ordered By: Breann East on 11-18-2024 Immature granulocytes/100 WBC (Bld) 0.100 % 0.0-0.9 [facility] Comment on above: IG% - Immature Granu locytes (promyelocytes, myelocytes and metamyelocytes) > 1% indicates that a LEFT SHIFT is Present. Ketones Test strip Ql (U)Ord ered By: Breann East on 11-18-2024 Ketones Ql (U) Negative Negative [facility] Laboratory - Chemistry and C hemistry - challengeOrdered By: Breann East on 11-18-2024 AST [Catalytic activity/Vol] 19 U/L 15-37 [facility] Lipaseon 11-18-2024 Lipase [Catalytic activity/Vol] 49 U/L Normal 13-75 [facility] Comment on above: Result Comment: Josy fay note:LIPASE revised reference range effective 23.New Lipase methodology. Expected to produce lower valuesthan the previous assay method.NEW Reference Range: 13 - 75 U/L Performed By: #### L 100.0100, L500.4050, L501.2450 ####[facility] [address] [place], [place], [id number] Lipase measurementOrdered By : Breann East on 11-18-2024 Lipase [Catalytic activity/Vol] 49 U/L 13-75 [facility] Comment on above: Please note:LIPASE r evised reference range effective 23. New Lipase methodology. Expected to produce lower values than the previous assay method. NEW Reference Range: 13 - 75 U/L Lymphocytes Auto (Unsp spec) [#/Vol]Ordered By: Breann East on 11-18-2024 Lymphocytes (Bld) [#/Vol] 2.93 10*3/uL 0.83-4.51 [facility] Lymphocytes/100 WBC Auto (Un sp spec)Ordered By: Breann East on 11-18-2024 Lymphocytes/100 WBC (Bld) 42.7 % High 19-41 [facility] MCV (mean corpuscular volume ) determinationOrdered By: Breann East on 11-18-2024 MCV (RBC) [Entitic vol] 93.3 fL 81-99 [facility] Mean corpuscular hemoglobin (MCH) determinationOrdered By: Breann East on 11-18-2024 MCH (RBC) [Entitic mass] 30.2 pg 27.0-32.0 [facility] Mean corpuscular hemoglobin concentration (MCHC) determinationOrdered By: Breann East on 11-18-2024 MCHC (RBC) [Mass/Vol] 32.4 g/dL 32-36 [facility] Mean platelet volume determi nationOrdered By: Breann East on 11-18-2024 Platelet mean volume (Bld) [Entitic vol] 11.7 fL 6.2-12.0 [facility] Microscopic analysis of urin e for red blood cells (RBC)Ordered By: Breann East on 11-18-2024 Urine RBC 0-5 SEEN /hpf 0-5 [facility] Monocyte percentageOrdered B y: Breann East on 11-18-2024 Monocytes/100 WBC (Bld) 6.7 % 0-10 [facility] Mucus LM Ql (Urine sed)Order ed By: Breann East on 11-18-2024 Mucus Ql (Urine sed) 0 SEEN /hpf [facility] Neutrophil percentageOrdered By: Breann East on 11-18-2024 Neutrophils/100 WBC (Bld) 48.1 % 47-70 [facility] Nitrite Test strip Ql (U)Ord ered By: Breann East on 11-18-2024 Nitrite Ql (U) Negative Negative [facility] Nucleated red blood cell per centageOrdered By: Breann East on 11-18-2024 Nucleated RBC/100 WBC (Bld) [Ratio] 0 % 0-5 [facility] Platelet countOrdered By: Tanya East on 11-18-2024 Platelets (Bld) [#/Vol] 153 10*3/uL 150-450 [facility] Potassium measurementOrdered By: Breann East on 11-18-2024 Potassium [Moles/Vol] 4.4 mmol/L 3.5-5.1 [facility] Protein Test strip Ql (U)Ord ered By: Breann East on 11-18-2024 Protein Ql (U) Negative Negative [facility] RBC Auto (Bld) [#/Vol]Ordere d By: Breann East on 11-18-2024 RBC (Bld) [#/Vol] 4.20 10*6/uL 4.2-5.4 [facility] Serum anion gap measurementO rdered By: Breann East on 11-18-2024 Anion gap [Moles/Vol] 3 mmol/L Low 5-15 [facility] Serum globulin measurementOr dered By: Breann East on 11-18-2024 Globulin (S) [Mass/Vol] 3.8 g/dL 2.2-4.2 [facility] Serum or plasma alanine cisneros otransferase (ALT) measurementOrdered By: Breann East on 11-18-2024 ALT [Catalytic activity/Vol] 21 U/L 13-56 [facility] Serum or plasma albumin loco urement (mass/volume)Ordered By: Breann East on 11-18-2024 Albumin [Mass/Vol] 3.6 g/dL 3.2-5.0 [facility] Serum or plasma alkaline sergio sphatase measurementOrdered By: Breann East on 11-18-2024 ALP [Catalytic activity/Vol] 52 U/L 45-117 [facility] Serum or plasma calcium loco urement (mass/volume)Ordered By: Breann East on 11-18-2024 Calcium [Mass/Vol] 9.2 mg/dL 8.5-10.1 [facility] Serum or plasma creatinine m easurement (mass/volume)Ordered By: Breann East on 11-18-2024 Creatinine [Mass/Vol] 1.02 mg/dL 0.55-1.02 [facility] Comment on above: The validity of the calculated GFR & GFRAA in patients over 70 years has not been determined. Clinical correlation is essential. Serum or plasma urea nitroge n measurement (mass/volume)Ordered By: Breann East on 11-18-2024 Urea nitrogen [Mass/Vol] 27 mg/dL High 7-18 [facility] Sodium levelOrdered By: Celestino East on 11-18-2024 Sodium [Moles/Vol] 138 mmol/L 136-145 [facility] Total proteinOrdered By: Chaz East on 11-18-2024 Protein [Mass/Vol] 7.4 g/dL 6.4-8.2 [facility] Transitional cells LM Ql (Ur ine sed)Ordered By: Breann East on 11-18-2024 Urine Transitional Epithelial Cells 0-5 SEEN /hpf 0-5 [facility] Urinalysis, Completeon 11-18 EPI,SQUAMOUS 0-5 SEEN Normal 5-10 [facility] Comment on above: Order Comment: CLEAN CATCH Performed By: #### L 400.0001 ####[facility] [address] [facility] [address] EPI,TRANSITION 0-5 SEEN Normal 0-5 [facility] Comment on above: Order Comment: CLEAN CATCH Performed By: #### L 400.0001 ####[facility] [address] [place], [address] WBC 0-5 SEEN Normal 0-5 [facility] Comment on above: Order Comment: CLEAN CATCH Performed By: #### L 400.0001 ####[facility] [address] [place], [address] BACTERIA 1+ /hpf Normal None Seen [facility] Comment on above: Order Comment: CLEAN CATCH Performed By: #### L 400.0001 ####[facility] [address] [place], [address] RBC 0-5 SEEN Normal 0-5 [facility] Comment on above: Order Comment: CLEAN CATCH Performed By: #### L 400.0001 ####[facility] [address] [place], [address] Mucus Ql (Urine sed) 0 SEEN Normal [facility] Comment on above: Order Comment: CLEAN CATCH Performed By: #### L 400.2333 ####[facility] [address] [place], [address] Urinalysis, Routine (Dipstic k)on 11-18-2024 BILIRUBIN URINE Normal Negative [facility] Comment on above: Order Comment: CLEAN CATCH Result Comment: Canc elled via OM: MD Ordered Performed By: #### L 400.2010 ####[facility] [address] [place], [address] Clarity (U) Normal Clear [facility] Comment on above: Order Comment: CLEAN CATCH Result Comment: Canc elled via OM: MD Ordered Performed By: #### L 400.2010 ####[facility] [address] [place], [address] Color (U) Normal Yellow [facility] Comment on above: Order Comment: CLEAN CATCH Result Comment: Canc elled via OM: MD Ordered Performed By: #### L 400.2010 ####[facility] [address] [place], [address] GLUCOSE, UR Normal Normal [facility] Comment on above: Order Comment: CLEAN CATCH Result Comment: Canc elled via OM: MD Ordered Performed By: #### L 400.2010 ####[facility] [address] [place], [address] KETONE UR Normal Negative [facility] Comment on above: Order Comment: CLEAN CATCH Result Comment: Canc elled via OM: MD Ordered Performed By: #### L 400.2010 ####[facility] [address] [place], [address] LEUK ESTERASE Normal Negative [facility] Comment on above: Order Comment: CLEAN CATCH Result Comment: Canc elled via OM: MD Ordered Performed By: #### L 400.2010 ####[facility] [address] [place], [address] Nitrite Ql (U) Normal Negative [facility] Comment on above: Order Comment: CLEAN CATCH Result Comment: Canc elled via OM: MD Ordered Performed By: #### L 400.2010 ####[facility] [address] [place], [address] OCCULT BLOOD-UR Normal Negative [facility] Comment on above: Order Comment: CLEAN CATCH Result Comment: Canc elled via OM: MD Ordered Performed By: #### L 400.2010 ####[facility] [address] [place], [address] pH UR Normal 5.0 - 8.0 [facility] Comment on above: Order Comment: CLEAN CATCH Result Comment: Canc elled via OM: MD Ordered Performed By: #### L 400.2010 ####[facility] [address] [place], [address] PROT DIPSTX Normal Negative [facility] Comment on above: Order Comment: CLEAN CATCH Result Comment: Canc elled via OM: MD Ordered Performed By: #### L 400.2010 ####[facility] [address] [place], [address] SP.GR. DIPSTX Normal 1.002-1.03 0 [facility] Comment on above: Order Comment: CLEAN CATCH Result Comment: Canc elled via OM: MD Ordered Performed By: #### L 400.2010 ####[facility] [address] [place], [address] UR Preservative Normal [facility] Comment on above: Order Comment: CLEAN CATCH Result Comment: Canc elled via OM: MD Ordered Performed By: #### L 400.2010 ####[facility] [address] [place], [address] UROBILI Normal Normal [facility] Comment on above: Order Comment: CLEAN CATCH Result Comment: Canc elled via OM: Ordered Performed By: #### L 400.2010 ####[facility] [address] [place], [address] Urine blood detectionOrdered By: Breann East on 11-18-2024 Urine Occult Blood 50 /ul High Negative [facility] Urine clarityOrdered By: Chaz East on 11-18-2024 Clarity (U) Clear Clear [facility] Urine color determinationOrd ered By: Breann East on 11-18-2024 Color (U) YELLOW Yellow [facility] Urine leukocyte esterase det ection by dipstickOrdered By: Breann East on 11-18-2024 Leukocyte esterase Test strip Ql (U) Negative Negative [facility] Urine pHOrdered By: Niurka East on 11-18-2024 pH (U) 7.0 [pH] 5.0 - 8.0 [facility] Urine sediment bacteria coun t by microscopy (number/high power field)Ordered By: Breann East on 11-18-2024 Bacteria LM.HPF (Urine sed) [#/Area] 1 /[HPF] None Seen [facility] Urine specific gravity measu rementOrdered By: Breann East on 11-18-2024 Specific gravity (U) [Rel density] 1.005 1.002-1.03 0 [facility] Urobilinogen Ql (U)Ordered B y: Breann East on 11-18-2024 Urine Urobilinogen Normal mg/dl Normal [facility] White blood cell (WBC) count Ordered By: Breann East on 11-18-2024 WBC (Bld) [#/Vol] 6.9 10*3/uL 4.4-11.0 [facility] White blood cell countOrdere d By: Breann East on 11-18-2024 Urine WBC 0-5 SEEN /hpf 0-5 [facility] 36on 11-16-2024 36 Name of caller: Beatrice lobo Contact phone number: [phone] Relationship to Patient: spouse/SO Provider: Dr Marci Lopez Practice: [facility] Chief Complaint/Reason for Call: Song called to let doctor know appointment is set for 12/19/24 with vascular surgeon, and is not sure if that's soon enough. Please advise Best time of day caller can be reached: [facility] C[facility] Tele[facility] ([id number]) MIKHAILMANSI GILBERT ([id number]) 1955 F Date Time Provider Department 11/13/24 [...] can prescribe to help with this? Pharmacy: [facility] in [place], [place] Janee Argueta RN 11/14/2024 9:27 AM [...] Status:Closed by GHAZALA GUSMAN on 11/14/24 Normal [facility] US CAROTID ARTERY DUPLE X BILATERALon 11-12-2024 [facility] US CAROTID ARTERY DUPLEX BILATERAL Patient Name: MANSI CARO : 1955 [facility]#: [id number] Exam Date/Time: 11/10/2024 15:39 Procedure: [facility] US CAROTID ARTERY DUPLEX BILATERAL Ordering Provider: [...] Electronically Signed Date/Time: 11/12/2024 4:33 PM EST [facility] US carotid artery d uplex bilateralon [...] PM [facility] RADIOLOGY SYSTEM Patient Name: MANSI CARO : 1955 Exam Date/Time: 11/10/2024 15:39 Procedure: VAS US [...] 50% ECA systolic: 105 cm/sec Vertebral: An[employer] [facility] RADIOLOGY SYSTEM Amadeo Hsu MD - 11/12/2024 Patient Name: MANSI CARO : 1955 Exam Date/Time: 11/10/2024 15:39 Procedure: VAS US [...] MD Electronically Signed Date/Time: 11/12/2024 4:33 PM [facility] Caliber Data 12 Lead EKGon 11-02-2024 12 Lead EKG Normal [facility] Abdomen/Pelvis without Conto n 11-02-2024 Abdomen/Pelvis without Cont Normal [facility] BNP,B-Type NATRIURETIC PEPTI Ingrid 11-02-2024 Natriuretic peptide B (Bld) [Mass/Vol] 52.4 pg/mL Normal 0-100 [facility] Comment on above: Performed By: #### L 501.5440, L503.6691, L100.0500, L500.5410, L501.8840 ####[facility] [address] [place], [place], [address] Brain/Head without Contrasto n 11-02-2024 Brain/Head without Contrast Normal [facility] CBC-Complete Blood Cnt No Di ffon 11-02-2024 Erythrocyte distribution width (RBC) [Ratio] 14.1 % Normal 11.6-14.6 [facility] Comment on above: Performed By: #### L 501.5425, L503.6620, L100.0500, L500.4050, L501.2450 ####[facility] [address] [place], [address] Hematocrit (Bld) [Volume fraction] 39.2 % Normal 37-47 [facility] Comment on above: Performed By: #### L 501.5425, L503.6620, L100.0500, L500.4050, L501.2450 ####[facility] [address] [place], [address] Hemoglobin (Bld) [Mass/Vol] 12.9 g/dL Normal 12.0-15.0 [facility] Comment on above: Performed By: #### L 501.5425, L503.6620, L100.0500, L500.4050, L501.2450 ####[facility] [address] [place], [address] MCH (RBC) [Entitic mass] 30.2 pg Normal 27.0-32.0 [facility] Comment on above: Performed By: #### L 501.5425, L503.6620, L100.0500, L500.4050, L501.2450 ####[facility] [address] [place], [address] MCHC (RBC) [Mass/Vol] 32.9 g/dL Normal 32-36 [facility] Comment on above: Performed By: #### L 501.5425, L503.6620, L100.0500, L500.4050, L501.2450 ####[facility] [address] [place], [address] MCV (RBC) [Entitic vol] 91.8 fL Normal 81-99 [facility] Comment on above: Performed By: #### L 501.5425, L503.6620, L100.0500, L500.4050, L501.2450 ####[facility] [address] [place], [address] Platelet mean volume (Bld) [Entitic vol] 11.2 fL Normal 6.2-12.0 [facility] Comment on above: Performed By: #### L 501.5425, L503.6620, L100.0500, L500.4050, L501.2450 ####[facility] [address] [place], [address] Platelets (Bld) [#/Vol] 138 10*3/uL Low 150-450 [facility] Comment on above: Performed By: #### L 501.5425, L503.6620, L100.0500, L500.4050, L501.2450 ####[facility] [address] [place], [address] RBC (Bld) [#/Vol] 4.27 10*6/uL Normal 4.2-5.4 [facility] Comment on above: Performed By: #### L 501.5425, L503.6620, L100.0500, L500.4050, L501.2450 ####[facility] [address] [place], [address] RDW SD 47.5 fl High 35.1-43.9 [facility] Comment on above: Performed By: #### L 501.5425, L503.6620, L100.0500, L500.4050, L501.2450 ####[facility] [address] [place], [address] WBC (Bld) [#/Vol] 12.7 10*3/uL High 4.4-11.0 [facility] Comment on above: Performed By: #### L 501.5425, L503.6620, L100.0500, L500.4050, L501.2450 ####[facility] [address] [place], [address] Chest 1 View (Portable)on Chest 1 View (Portable) Normal [facility] Comprehensive Metabolic Prof ilon 11-02-2024 Albumin [Mass/Vol] 4.0 g/dL Normal 3.2-5.0 [facility] Comment on above: Order Comment: 1Y Performed By: #### L 501.5425, L503.6620, L100.0500, L500.4050, L501.2450 ####[facility] [address] [place], [address] Albumin/Globulin [Mass ratio] 1.1 {ratio} Normal 0.9-2.4 [facility] Comment on above: Order Comment: 1Y Performed By: #### L 501.5425, L503.6620, L100.0500, L500.4050, L501.2450 ####[facility] [address] [place], [address] ALK P 64 U/L Normal 45-117 [facility] Comment on above: Order Comment: 1Y Performed By: #### L 501.5425, L503.6620, L100.0500, L500.4050, L501.2450 ####[facility] [address] [place], [address] ALT [Catalytic activity/Vol] 17 U/L Normal 13-56 [facility] Comment on above: Order Comment: 1Y Performed By: #### L 501.5425, L503.6620, L100.0500, L500.4050, L501.2450 ####[facility] [address] [place], [address] AST [Catalytic activity/Vol] 20 U/L Normal 15-37 [facility] Comment on above: Order Comment: 1Y Performed By: #### L 501.5425, L503.6620, L100.0500, L500.4050, L501.2450 ####[facility] [address] [place], [address] Bilirubin [Mass/Vol] 0.40 mg/dL Normal 0.20-1.00 [facility] Comment on above: Order Comment: 1Y Result Comment: For patients on eltrombopag therapy, use of Dimension [place] TBIL is not recommended. Performed By: #### L 501.5425, L503.6620, L100.0500, L500.4050, L501.2450 ####[facility] [address] [place], [address] BUN/CRE 23.1 RATIO High 10-20 [facility] Comment on above: Order Comment: 1Y Performed By: #### L 501.5425, L503.6620, L100.0500, L500.4050, L501.2450 ####[facility] [address] [place], [address] CA,Total 9.5 mg/dL Normal 8.5-10.1 [facility] Comment on above: Order Comment: 1Y Performed By: #### L 501.5425, L503.6620, L100.0500, L500.4050, L501.2450 ####[facility] [address] [place], [address] Chloride [Moles/Vol] 106 mmol/L Normal 98-107 [facility] Comment on above: Order Comment: 1Y Performed By: #### L 501.5425, L503.6620, L100.0500, L500.4050, L501.2450 ####[facility] [address] [place], [address] CO2 [Moles/Vol] 27.0 mmol/L Normal 21.0-32.0 [facility] Comment on above: Order Comment: 1Y Performed By: #### L 501.5425, L503.6620, L100.0500, L500.4050, L501.2450 ####[facility] [address] [place], [address] Creatinine [Mass/Vol] 1.30 mg/dL High 0.55-1.02 [facility] Comment on above: Order Comment: 1Y Result Comment: The validity of the calculated GFR GFRAA in patients over70 years has not been determined. Clinical correlation isessential. Performed By: #### L 501.5425, L503.6620, L100.0500, L500.4050, L501.2450 ####[facility] [address] [place], [address] ECRCL 38.97 ml/min Normal [facility] Comment on above: Order Comment: 1Y Performed By: #### L 501.5425, L503.6620, L100.0500, L500.4050, L501.2450 ####[facility] [address] [place], [address] EST GFR - AA 52 mL/min Low >60 [facility] Comment on above: Order Comment: 1Y Result Comment: Afri can Cameroonian GFR Calc Performed By: #### L 501.5425, L503.6620, L100.0500, L500.4050, L501.2450 ####[facility] [address] [place], [address] GAP 5 Normal 5-15 [facility] Comment on above: Order Comment: 1Y Performed By: #### L 501.5425, L503.6620, L100.0500, L500.4050, L501.2450 ####[facility] [address] [place], [address] GFR/1.73 sq M.predicted among non-blacks MDRD (S/P/Bld) [Vol rate/Area] 43 mL/min/{1.73_m2} Low >60 [facility] Comment on above: Order Comment: 1Y Result Comment: Non- GFR Calc Performed By: #### L 501.5425, L503.6620, L100.0500, L500.4050, L501.2450 ####[facility] [address] [place], [address] Globulin (S) [Mass/Vol] 3.6 g/dL Normal 2.2-4.2 [facility] Comment on above: Order Comment: 1Y Performed By: #### L 501.5425, L503.6620, L100.0500, L500.4050, L501.2450 ####[facility] [address] [place], [address] Glucose [Mass/Vol] 224 mg/dL High 74-106 [facility] Comment on above: Order Comment: 1Y Result Comment: Gluc ose result greater than or equal to 200 mg/dLsuggests DIABETES MELLITUS per A.D.A. criteria. Performed By: #### L 501.5425, L503.6620, L100.0500, L500.4050, L501.2450 ####[facility] [address] [place], [address] Potassium [Moles/Vol] 4.4 mmol/L Normal 3.5-5.1 [facility] Comment on above: Order Comment: 1Y Performed By: #### L 501.5425, L503.6620, L100.0500, L500.4050, L501.2450 ####[facility] [address] [place], [address] Sodium [Moles/Vol] 138 mmol/L Normal 136-145 [facility] Comment on above: Order Comment: 1Y Performed By: #### L 501.5425, L503.6620, L100.0500, L500.4050, L501.2450 ####[facility] [address] [place], [address] T PROT 7.6 g/dL Normal 6.4-8.2 [facility] Comment on above: Order Comment: 1Y Performed By: #### L 501.5425, L503.6620, L100.0500, L500.4050, L501.2450 ####[facility] [address] [place], [address] Urea nitrogen [Mass/Vol] 30 mg/dL High 7-18 [facility] Comment on above: Order Comment: 1Y Performed By: #### L 501.5425, L503.6620, L100.0500, L500.4050, L501.2450 ####[facility] [address] [place], [address] Emergency Department Summary on 11-02-2024 Emergency Department Summary Normal [facility] L501.4020on 11-02-2024 TROPONIN-I HS 22 pg/mL Normal 3.0-54.0 [facility] Comment on above: Result Comment: Plea se Note: New Test Units and Gender Specific Reference Ranges. For more information see Policy Stat Procedure [place] High Sensitivity Troponin (TNIH) and attachments. Performed By: #### L 501.4020 ####[facility] [address] [place], [address] L501.5425on 11-02-2024 TROPONIN-I HS 15 pg/mL Normal 3.0-54.0 [facility] Comment on above: Order Comment: 1Y Result Comment: Plea se Note: New Test Units and Gender Specific Reference Ranges. For more information see Policy Stat Procedure [place] High Sensitivity Troponin (TNIH) and attachments. Performed By: #### L 501.5425, L503.6620, L100.0500, L500.4050, L501.2450 ####[facility] [address] [place], [address] Lipaseon 11-02-2024 Lipase [Catalytic activity/Vol] 41 U/L Normal 13-75 [facility] Comment on above: Order Comment: 1Y Result Comment: Josy fay note:LIPASE revised reference range effective 23.New Lipase methodology. Expected to produce lower valuesthan the previous assay method.NEW Reference Range: 13 - 75 U/L Performed By: #### L 501.5425, L503.6620, L100.0500, L500.4050, L501.2450 ####[facility] [address] [place], [address] M100.678on 11-02-2024 M100.678 Pending SARS-CoV-2 (COVID 19) Negative INFLUENZA A Negative INFLUENZA B Negative RSV PCR Negative Normal [facility] Comment on above: Performed By: #### M 100.678, L400.0001 ####[facility] [address] [place], [address] Urinalysis, Completeon 11-02 BACTERIA 0 SEEN Normal None Seen [facility] Comment on above: Order Comment: CLEAN CATCH Performed By: #### M 100.678, L400.0001 ####[facility] [address] [place], [address] EPI,SQUAMOUS 0 SEEN Normal 5-10 [facility] Comment on above: Order Comment: CLEAN CATCH Performed By: #### M 100.678, L400.0001 ####[facility] [address] [place], [address] Mucus Ql (Urine sed) 0 SEEN Normal [facility] Comment on above: Order Comment: CLEAN CATCH Performed By: #### M 100.678, L400.0001 ####[facility] [address] [place], [address] RBC 0 SEEN Normal 0-5 [facility] Comment on above: Order Comment: CLEAN CATCH Performed By: #### M 100.678, L400.0001 ####[facility] [address] [place], [address] WBC 0 SEEN Normal 0-5 [facility] Comment on above: Order Comment: CLEAN CATCH Performed By: #### M 100.678, L400.0001 ####[facility] [address] [place], [address] Gastroenterology Visit Repor ton 10-17-2024 Gastroenterology Visit Report Normal [facility] 36on 10-06-2024 36 Name of caller: Beatrice lobo Contact phone number: [phone] Relationship to Patient: spouse/SO Provider: Dr. Lopez Practice: [facility] Chief Complaint/Reason for Call: Song wanted to ask Dr. Lopez to consider long covid for patient. States all the symptoms are there. Requesting a call back to discuss. Please advise. Best time of day caller can be reached: any Patient advised that office/PCP has 24-48 business hours to return their call: Normal [facility] Inital Evaluation (1) - PTon 09-27-2024 Inital Evaluation (1) - PT Normal [facility] MR/BMS.BVSon 09-14-2024 MR/BMS.BVS Normal [facility] 12 Lead EKGon 09-09-2024 12 Lead EKG Normal [facility] BNP,B-Type NATRIURETIC PEPTI Ingrid 09-09-2024 Natriuretic peptide B (Bld) [Mass/Vol] 40.9 pg/mL Normal 0-100 [facility] Comment on above: Performed By: #### L 503.6620, L300.3900, L300.4310, L300.8000 ####[facility] [address] [place], [address] Basic Metabolic Profile (BMP )on 09-09-2024 BUN/CRE 36.1 RATIO High 10-20 [facility] Comment on above: Performed By: #### L 100.0100, L500.2500 ####[facility] [address] [place], [address] CA,Total 9.4 mg/dL Normal 8.5-10.1 [facility] Comment on above: Performed By: #### L 100.0100, L500.2500 ####[facility] [address] [place], [address] Chloride [Moles/Vol] 106 mmol/L Normal 98-107 [facility] Comment on above: Performed By: #### L 100.0100, L500.2500 ####[facility] [address] [place], [address] CO2 [Moles/Vol] 28.0 mmol/L Normal 21.0-32.0 [facility] Comment on above: Performed By: #### L 100.0100, L500.2500 ####[facility] [address] [place], [address] Creatinine [Mass/Vol] 1.22 mg/dL High 0.55-1.02 [facility] Comment on above: Result Comment: The validity of the calculated GFR GFRAA in patients over70 years has not been determined. Clinical correlation isessential. Performed By: #### L 100.0100, L500.2500 ####[facility] [address] [place], [address] ECRCL 41.66 ml/min Normal [facility] Comment on above: Performed By: #### L 100.0100, L500.2500 ####[facility] [address] [place], [address] EST GFR - AA 56 mL/min Low >60 [facility] Comment on above: Result Comment: Afri can Cameroonian GFR Calc Performed By: #### L 100.0100, L500.2500 ####[facility] [address] [place], [address] GAP 5 Normal 5-15 [facility] Comment on above: Performed By: #### L 100.0100, L500.2500 ####[facility] [address] [place], [address] GFR/1.73 sq M.predicted among non-blacks MDRD (S/P/Bld) [Vol rate/Area] 46 mL/min/{1.73_m2} Low >60 [facility] Comment on above: Result Comment: Non- GFR Calc Performed By: #### L 100.0100, L500.2500 ####[facility] [address] [place], [address] Glucose [Mass/Vol] 231 mg/dL High 74-106 [facility] Comment on above: Result Comment: Gluc ose result greater than or equal to 200 mg/dLsuggests DIABETES MELLITUS per A.D.A. criteria. Performed By: #### L 100.0100, L500.2500 ####[facility] [address] [place], [address] Potassium [Moles/Vol] 4.8 mmol/L Normal 3.5-5.1 [facility] Comment on above: Performed By: #### L 100.0100, L500.2500 ####[facility] [address] [place], [address] Sodium [Moles/Vol] 139 mmol/L Normal 136-145 [facility] Comment on above: Performed By: #### L 100.0100, L500.2500 ####[facility] [address] [place], [address] Urea nitrogen [Mass/Vol] 44 mg/dL High 7-18 [facility] Comment on above: Performed By: #### L 100.0100, L500.2500 ####[facility] [address] [place], [address] CBC W/Diff, Automatedon 10- Absolute Neut Normal 2.0-7.7 [facility] Comment on above: Result Comment: DUPL ICATES Performed By: #### L 100.0100, L501.5425 ####[facility] [address] [place], [address] HCT Normal 37-47 [facility] Comment on above: Result Comment: DUPL ICATES Performed By: #### L 100.0100, L501.5425 ####[facility] [address] [place], [address] HGB Normal 12.0-15.0 [facility] Comment on above: Result Comment: DUPL ICATES Performed By: #### L 100.0100, L501.5425 ####[facility] [address] [place], [address] MCH Normal 27.0-32.0 [facility] Comment on above: Result Comment: DUPL ICATES Performed By: #### L 100.0100, L501.5425 ####[facility] [address] [place], [address] MCHC Normal 32-36 [facility] Comment on above: Result Comment: DUPL ICATES Performed By: #### L 100.0100, L501.5425 ####[facility] [address] [place], [address] MCV Normal 81-99 [facility] Comment on above: Result Comment: DUPL ICATES Performed By: #### L 100.0100, L501.5425 ####[facility] [address] [place], [address] NEUT% Normal 47-70 [facility] Comment on above: Result Comment: DUPL ICATES Performed By: #### L 100.0100, L501.5425 ####[facility] [address] [place], [address] PLT Normal 150-450 [facility] Comment on above: Result Comment: DUPL ICATES Performed By: #### L 100.0100, L501.5425 ####[facility] [address] [place], [address] RBC Normal 4.2-5.4 [facility] Comment on above: Result Comment: DUPL ICATES Performed By: #### L 100.0100, L501.5425 ####[facility] [address] [place], [address] RDW CV Normal 11.6-14.6 [facility] Comment on above: Result Comment: DUPL ICATES Performed By: #### L 100.0100, L501.5425 ####[facility] [address] [place], [address] RDW SD Normal 35.1-43.9 [facility] Comment on above: Result Comment: DUPL ICATES Performed By: #### L 100.0100, L501.5425 ####[facility] [address] [place], [address] WBC Normal 4.4-11.0 [facility] Comment on above: Result Comment: DUPL ICATES Performed By: #### L 100.0100, L501.5425 ####[facility] [address] [place], [address] Absolute Lymph 2.53 X10 3/uL Normal 0.83-4.51 [facility] Comment on above: Performed By: #### L 100.0100, L500.2500 ####[facility] [address] [place], [address] Absolute Neut 3.4 X10 3/uL Normal 2.0-7.7 [facility] Comment on above: Performed By: #### L 100.0100, L500.2500 ####[facility] [address] [place], [address] Basophils/100 WBC (Bld) 0.3 % Normal 0-1 [facility] Comment on above: Performed By: #### L 100.0100, L500.2500 ####[facility] [address] [place], [address] Eosinophils/100 WBC (Bld) 0.8 % Normal 0-5 [facility] Comment on above: Performed By: #### L 100.0100, L500.2500 ####[facility] [address] [place], [address] Erythrocyte distribution width (RBC) [Ratio] 13.8 % Normal 11.6-14.6 [facility] Comment on above: Performed By: #### L 100.0100, L500.2500 ####[facility] [address] [place], [address] Hematocrit (Bld) [Volume fraction] 37.4 % Normal 37-47 [facility] Comment on above: Performed By: #### L 100.0100, L500.2500 ####[facility] [address] [place], [address] Hemoglobin (Bld) [Mass/Vol] 12.0 g/dL Normal 12.0-15.0 [facility] Comment on above: Performed By: #### L 100.0100, L500.2500 ####[facility] [address] [place], [address] IG% 0.200 Normal 0.0-0.9 [facility] Comment on above: Result Comment: IG% - Immature Granulocytes (promyelocytes, myelocytes andmetamyelocytes) > 1% indicates that a LEFT SHIFT is Present. Performed By: #### L 100.0100, L500.2500 ####[facility] [address] [place], [address] Lymphocytes/100 WBC (Bld) 38.6 % Normal 19-41 [facility] Comment on above: Performed By: #### L 100.0100, L500.2500 ####[facility] [address] [place], [address] MCH (RBC) [Entitic mass] 30.0 pg Normal 27.0-32.0 [facility] Comment on above: Performed By: #### L 100.0100, L500.2500 ####[facility] [address] [place], [address] MCHC (RBC) [Mass/Vol] 32.1 g/dL Normal 32-36 [facility] Comment on above: Performed By: #### L 100.0100, L500.2500 ####[facility] [address] [place], [address] MCV (RBC) [Entitic vol] 93.5 fL Normal 81-99 [facility] Comment on above: Performed By: #### L 100.0100, L500.2500 ####[facility] [address] [place], [address] Monocytes/100 WBC (Bld) 8.5 % Normal 0-10 [facility] Comment on above: Performed By: #### L 100.0100, L500.2500 ####[facility] [address] [place], [address] Neutrophils/100 WBC (Bld) 51.6 % Normal 47-70 [facility] Comment on above: Performed By: #### L 100.0100, L500.2500 ####[facility] [address] [place], [address] Nucleated RBC (Bld) [#/Vol] 0 10*3/uL Normal 0-5 [facility] Comment on above: Performed By: #### L 100.0100, L500.2500 ####[facility] [address] [place], [address] Platelet mean volume (Bld) [Entitic vol] 10.4 fL Normal 6.2-12.0 [facility] Comment on above: Performed By: #### L 100.0100, L500.2500 ####[facility] [address] [place], [address] Platelets (Bld) [#/Vol] 167 10*3/uL Normal 150-450 [facility] Comment on above: Performed By: #### L 100.0100, L500.2500 ####[facility] [address] [place], [address] RBC (Bld) [#/Vol] 4.00 10*6/uL Low 4.2-5.4 [facility] Comment on above: Performed By: #### L 100.0100, L500.2500 ####[facility] [address] [place], [address] RDW SD 47.0 fl High 35.1-43.9 [facility] Comment on above: Performed By: #### L 100.0100, L500.2500 ####[facility] [address] [place], [address] WBC (Bld) [#/Vol] 6.6 10*3/uL Normal 4.4-11.0 [facility] Comment on above: Performed By: #### L 100.0100, L500.2500 ####[facility] [address] [place], [address] CTA Chest W/WO Contraston CTA Chest W/WO Contrast Normal [facility] Chest PA and Lateralon 09-09 Chest PA and Lateral Normal [facility] D-Dimer Quantitative (DVT/PE )on 09-09-2024 D-DIMER QUANT 0.72 FEU/ug/m Invalid Interpretation Code 0.27-0.49 [facility] Comment on above: Result Comment: CRIT ICAL VALUE CALLED TO ENEDELIA GARCIA RN ER09/09/24 1616 Adrienne Orozco.RESULTS READ BACK BY SAME .D-Dimer ELEVATED (>0.49): Additional studies and clinicalassessments are indicated to conclude diagnosis of:Deep Vein Thrombosis (DVT) or Pulmonary Embolism (PE) Performed By: #### L 503.6620, L300.3900, L300.4310, L300.8000 ####[facility] [address] [place], [address] Emergency Department Summary on 09-09-2024 Emergency Department Summary Normal [facility] L501.4020on 09-09-2024 TROPONIN-I HS 7 pg/mL Normal 3.0-54.0 [facility] Comment on above: Result Comment: Plea se Note: New Test Units and Gender Specific Reference Ranges. For more information see Policy Stat Procedure [place] High Sensitivity Troponin (TNIH) and attachments. Performed By: #### L 501.4020 ####[facility] [address] [place], [address] L501.5425on 09-09-2024 TROPONIN-I HS 5 pg/mL Normal 3.0-54.0 [facility] Comment on above: Order Comment: 1Y Result Comment: Plehema se Note: New Test Units and Gender Specific Reference Ranges. For more information see Policy Stat Procedure [place] High Sensitivity Troponin (TNIH) and attachments. Performed By: #### L 100.0100, L501.5425 ####[facility] [address] [place], [address] Partial Thromboplast Timeon 09-09-2024 aPTT Coag (Bld) [Time] 21.2 s Low 24.1-36.2 [facility] Comment on above: Performed By: #### L 503.6620, L300.3900, L300.4310, L300.8000 ####[facility] [address] [place], [address] Prothrombin Time w/INRon INR Coag (PPP) [Relative time] 1.0 {INR} Normal [facility] Comment on above: Performed By: #### L 503.6620, L300.3900, L300.4310, L300.8000 ####[facility] [address] [place], [address] PT Coag (PPP) [Time] 13.3 s Normal 11.7-14.9 [facility] Comment on above: Performed By: #### L 503.6620, L300.3900, L300.4310, L300.8000 ####[facility] [address] [place], [address] Echo Completeon 08-25-2024 Echo Complete Normal [facility] PET+CT Guidance for localiza tion of [...] cm. MUSCULOSKELETAL: * No metabolically active disease. Network Contractor: MARC Transcribe Date/Time: Aug 14 2024 12:13P Dictated by : RICK BOLAND MD This examination was interpreted and the report reviewed and electronically signed by: RICK BOLAND MD on Aug 14 2024 12:56PM [facility] * * *Final Report* * * DATE OF EXAM: Aug 13 2024 1:08PM [facility] 0060 - [place] PET/CT SKULL-THIGH INIT [...] * Uptake Time: 47 minutes * Radiopharmaceutical: Z10-Ykyocgjtvsxwbbcbzr (FDG) COMPARISON: No previous FDG PET/CT available [...] changes. Soft Tissues: No radiotracer avid lesion. [facility] Provider, Jeremias Cruz - 08/14/2024 * * *Final Report* * * DATE OF EXAM: Aug 13 2024 1:08PM [facility] 0060 - NM PET/CT SKULL-THIGH INIT [...] * Uptake Time: 47 minutes * Radiopharmaceutical: E01-Dpqsuobhfdkcyylgao (FDG) COMPARISON: No previous FDG PET/CT available [...] cm. MUSCULOSKELETAL: * No metabolically active disease. 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-- W 18F-FDG IVOrdered By: [facility] Provider on 08-14-2024 [facility] GLUCOSE, BLOOD (POC)on 08-13 Glucose [Mass/Vol] 149 mg/dL Abnormal 74 - 99 mg/dL [facility] Comment on above: Location:[facility], [address] [place] [address], [facility] The Accu-Chek Inform II glucose meter has [...] Interpretation and review of laboratory results Abnormal [facility] NM PET/CT SKULL-THIGH INITon 08-13-2024 NM PET/CT SKULL-THIGH INIT * * *Final Report* * * DATE OF EXAM: Aug 13 2024 1:08PM [facility] 0060 - NM PET/CT SKULL-THIGH INIT [...] * Uptake Time: 47 minutes * Radiopharmaceutical: T92-Mzwuobdopwqfsanfpr (FDG) COMPARISON: No previous FDG PET/CT available [...] cm. MUSCULOSKELETAL: * No metabolically active disease. 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 States that jewelry enameler states he thinks her left side pain [...] Protocols used: Information Only Call - No [facility] 36 S: Patient , Song, spoke with [facility] nurse regarding no improvement on weakness or fatigue B: Onset of symptoms/concern 08/04/24 A: States they wanted to give status update on patient. Song states no improvement of weakness or fatigue after seeing selvage machine operator or vascular surgeon. States patient will be seeing jewelry enameler today at 230. Declined triage as they [...] Protocols used: Information Only Call - No [facility] Reporton Cardiology Visit Report Normal [facility] MR/BMS.BVSon 08-03-2024 MR/BMS.BVS Normal [facility] Oncology Visit Reporton 07-23 Oncology Visit Report Normal [facility] CT Chest WO contrastOrdered By: Ccf Provider on 07-25-2024 Interpretation and review of laboratory results Abnormal [facility] Radiology Result ACTIONABLE Abnormal [facility] Comment on above: This report contains an [...] contact your provider for the next steps. [facility] CT Chest WO contraston 07-25 IMPRESSION: [...] Code: CT_1 Recommendation: NM PET/MR WHOLE BODY ([id number]) Time Frame: At the discretion of the clinical team. COMMUNICATION: Results will be communicated with the ordering provider via fabrik staff message or phone message by [facility] within 2 business days of report finalization. --END OF FINDING-- Network Contractor: PSCB Transcribe Date/Time: Jul 25 2024 7:50A Dictated by : LELA SCHULZ MD This examination was interpreted and the report reviewed and electronically signed by: LELA SCHULZ MD on Jul 25 2024 3:53PM [facility] RADIOLOGY * * *Final Report* * * DATE OF EXAM: Jul 21 2024 12:08PM [place] [facility] - CT CHEST WO IVCON / [...] left-sided hydronephrosis. Partially visualized left renal cyst. [facility] RADIOLOGY Provider, Jeremias Nance [facility] - 07/25/2024 * * *Final Report* * * DATE OF EXAM: Jul 21 2024 12:08PM [place] [facility] - CT CHEST WO IVCON / [...] Code: CT_1 Recommendation: NM PET/MR WHOLE BODY ([id number]) Time Frame: At the discretion of the clinical team. COMMUNICATION: Results will be communicated with the ordering provider via fabrik staff message or phone message by [facility] within 2 business days of report finalization. --END OF FINDING-- Network Contractor: MARC Transcribe Date/Time: Jul 25 2024 7:50A Dictated by : LELA SCHULZ MD This examination was interpreted and the report reviewed and electronically signed by: LELA SCHULZ MD on Jul 25 2024 3:53PM EST [facility] Pacemaker Checkon 07-25-2024 Pacemaker Check Normal [facility] CT CHEST WO IVCONon 07-21-20 CT CHEST WO IVCON * * *Final Report* * * DATE OF EXAM: Jul 21 2024 12:08PM [place] [facility] - CT CHEST WO IVCON / [...] Code: CT_1 Recommendation: NM PET/MR WHOLE BODY ([id number]) Time Frame: At the discretion of the clinical team. COMMUNICATION: Results will be communicated with the ordering provider via fabrik staff message or phone message by [facility] within 2 business days of report finalization. --END OF FINDING-- Network Contractor: MARC Transcribe Date/Time: Jul 25 2024 7:50A Dictated by : LELA SCHULZ MD This examination was interpreted and the report reviewed and electronically signed by: LELA SCHULZ MD on Jul 25 2024 3:53PM EST [id number] ACTIONABLE Invalid Interpretation Code [facility] CT Chest WO contraston 07-21 Radiology Study observation (narrative) [facility] Gastroenterology Visit Repor ton 07-21-2024 [facility]IC METABOLIC PANELon 08-2 Anion gap [Moles/Vol] 4 mmol/L Normal 3-13 [facility] Comment on above: Performed By: #### L [id number] ####Commercial Print Salesman: ANTOINE COOPER ([phone])[facility] [place] [address] (SWRLAB)[address] [place] [address] [place] Calcium [Mass/Vol] 9.1 mg/dL Normal 8.4-10.4 [facility] Comment on above: Performed By: #### L [id number] ####Commercial Print Salesman: ANTOINE COOPER ([phone])[facility] [address] (SW[address] [place] [address] [place] Chloride [Moles/Vol] 103 mmol/L Normal 98-107 [facility] Comment on above: Performed By: #### L [id number] ####Commercial Print Salesman: ANTOINE COOPER ([phone])[facility] [address] (SWRL[address] [place] [address] [place] CO2 [Moles/Vol] 30 mmol/L Normal 22-30 [facility] Comment on above: Performed By: #### L AB15 ####Commercial Print Salesman: ANTOINE COOPER ([phone])[facility] [address] (SW[address] [place] [address] [place] Creatinine [Mass/Vol] 1.01 mg/dL Normal 0.52-1.04 [facility] Comment on above: Performed By: #### L [id number] ####Commercial Print Salesman: ANTOINE COOPER ([phone])[facility] [place] [address] (SWRLAB)[address] [place] [address] [place] GLOMERULAR FILTRATION RATE ML/MIN/1.73 SQ M.PREDICTED 59.6 mL/min/1.73m*2 Low >60.0 [facility] Comment on above: Result Comment: Calc ulation based on the Chronic Kidney Disease Epidemiology Collaboration (CKD-EPI) equation refit without adjustment for race Performed By: #### L [id number] ####Commercial Print Salesman: ANTOINE COOPER ([phone])[facility] [place] [address] (SWRLAB)[address] [place], [place] [address] [place] Glucose [Mass/Vol] 191 mg/dL High 70-100 [facility] Comment on above: Performed By: #### L AB15 ####Commercial Print Salesman: ANTOINE COOPER ([phone])[facility] [address] (SWRLAB)[address] Potassium [Moles/Vol] 5.2 mmol/L High 3.5-5.1 [facility] Comment on above: Performed By: #### L [id number] ####Commercial Print Salesman: ANTOINE COOPER ([phone])[facility] [address] (SWRL[address] Sodium [Moles/Vol] 137 mmol/L Normal 135-145 [facility] Comment on above: Performed By: #### L AB15 ####Commercial Print Salesman: ANTOINE COOPER ([phone])[facility] [address] (SWRLAB)[address] Urea nitrogen [Mass/Vol] 31 mg/dL High 7-17 [facility] Comment on above: Performed By: #### L [id number] ####Commercial Print Salesman: ANTOINE COOPER ([phone])[facility] [address]TM[place] (SWRLAB)[address] [place] [address] Basic metabolic 1998 panelon 07-20-2024 Anion gap [Moles/Vol] 4 mmol/L 3 - 13 mmol/L [facility] Calcium [Mass/Vol] 9.1 mg/dL 8.4 - 10. 4 mg/dL [facility] Chloride [Moles/Vol] 103 mmol/L 98 - 10 7 mmol/L [facility] CO2 [Moles/Vol] 30 mmol/L 22 - 30 mmol/L [facility] Creatinine [Mass/Vol] 1.01 mg/dL 0.52 - 1.04 mg/dL [facility] GFR/1.73 sq M.predicted (S/P/Bld) [Vol rate/Area] 59.6 mL/min Low - PINF [facility] Comment on above: Calculation based on the Chronic Kidney Disease Epidemiology Collaboration (CKD-EPI) equation refit without adjustment for race Glucose [Mass/Vol] 191 mg/dL High 70 - 100 mg/dL [facility] Interpretation and review of laboratory results Abnormal [facility] Potassium [Moles/Vol] 5.2 mmol/L High 3.5 - 5.1 mmol/L [facility] Sodium [Moles/Vol] 137 mmol/L 135 - 145 mmol/L [facility] Urea nitrogen [Mass/Vol] 31 mg/dL High 7 - 17 mg/dL [facility] CBC W Auto Differential pane l (Bld)on 07-20-2024 Basophils (Bld) [#/Vol] 0 10*3/uL 0.0 - 0.2 10*3/uL [facility] Basophils/100 WBC (Bld) 0.5 % 0.0 - 2.0 % [facility] Eosinophils (Bld) [#/Vol] 0.1 10*3/uL 0.0 - 0.5 10*3/uL [facility] Eosinophils/100 WBC (Bld) 2.3 % 0.0 - 6.0 % [facility] Erythrocyte distribution width (RBC) [Ratio] 14.2 % 11.5 - 15.0 % [facility] Hematocrit (Bld) [Volume fraction] 32.9 % Low 35.0 - 47.0 % [facility] Hemoglobin (Bld) [Mass/Vol] 10.6 g/dL Low 11.7 - 16.0 g/dL [facility] Immature granulocytes (Bld) [#/Vol] 0 10*3/uL NINF - 0.1 10*3/uL [facility] Immature granulocytes/100 WBC (Bld) 0.2 % 0.0 - 2.0 % [facility] Interpretation and review of laboratory results Abnormal [facility] Lymphocytes (Bld) [#/Vol] 2.1 10*3/uL 1.0 - 4.3 10*3/uL [facility] Lymphocytes/100 WBC (Bld) 37 % 15.0 - 45.0 % [facility] MCH (RBC) [Entitic mass] 30.7 pg 26.0 - 34.0 pg [facility] MCHC (RBC) [Mass/Vol] 32.2 % 30.5 - 36.0 % [facility] MCV (RBC) [Entitic vol] 95.4 fL 77.0 - 99.0 fL [facility] Monocytes (Bld) [#/Vol] 0.5 10*3/uL 0.0 - 0.9 10*3/uL [facility] Monocytes/100 WBC (Bld) 8.4 % 5.0 - 13.0 % [facility] Neutrophils (Bld) [#/Vol] 3 10*3/uL 1.8 - 7.5 10*3/uL [facility] Neutrophils/100 WBC (Bld) 51.6 % 38.0 - 82.0 % [facility] Nucleated RBC/100 WBC (Bld) [Ratio] 0 % [facility] Platelet mean volume (Bld) [Entitic vol] 10.7 fL 9.0 - 12.7 fL [facility] Comment on above: MPV is a calculated measurement using platelet volume ratio Platelets (Bld) [#/Vol] 172 10*3/uL 140 - 440 10*3/uL [facility] RBC (Bld) [#/Vol] 3.45 10*6/uL Low 3.80 - 5.20 10*6/uL [facility] WBC (Bld) [#/Vol] 5.7 10*3/uL 3.6 - 10.7 10*3/uL [facility] CBC WITH AUTO DIFFERENTIALon 07-20-2024 Basophils (Bld) [#/Vol] 0.0 10*3/uL Normal 0.0-0.2 [facility] Comment on above: Performed By: #### L [id number] #### Commercial Print Salesman: ANTOINE COOPER ([id number]) [facility] NATHAN BedlooTMAN (SWRLAB) [address] [place] [address] Basophils/100 WBC (Bld) 0.5 % Normal 0.0-2.0 [facility] Comment on above: Performed By: #### L [id number] #### Commercial Print Salesman: ANTOINE COOPER ([phone]) [facility] NATHAN RITTMAN (SWRLAB) [address] [place] [address] Eosinophils (Bld) [#/Vol] 0.1 10*3/uL Normal 0.0-0.5 [facility] Comment on above: Performed By: #### L [id number] #### Commercial Print Salesman: ANTOINE COOPER ([phone]) JOSEMAN[facility] [place] (SWRLAB) [address] [place] [address] [place] Eosinophils/100 WBC (Bld) 2.3 % Normal 0.0-6.0 [facility] Comment on above: Performed By: #### L [id number] #### Commercial Print Salesman: ANTOINE COOPER ([phone]) [facility] [place] (SWRL[facility]) [address] [place] [address] Erythrocyte distribution width (RBC) [Ratio] 14.2 % Normal 11.5-15.0 [facility] Comment on above: Performed By: #### L [id number] #### Commercial Print Salesman: ANTOINE COOPER ([phone]) [facility] [place] (SWRL[place]) [address] [place] [address] Hematocrit (Bld) [Volume fraction] 32.9 % Low 35.0-47.0 [facility] Comment on above: Performed By: #### L [id number] #### Commercial Print Salesman: ANTOINE COOPER ([phone]) [facility] [place] (SWRL[place]) [address] [place] [address] Hemoglobin (Bld) [Mass/Vol] 10.6 g/dL Low 11.7-16.0 [facility] Comment on above: Performed By: #### L [id number] #### Commercial Print Salesman: ANTOINE COOPER ([phone]) [facility] [place] (SWRL[place]) [address] [place] [address] IMMATURE GRANS % 0.2 % Normal 0.0-2.0 [facility] Comment on above: Performed By: #### L [id number] #### Commercial Print Salesman: ANTOINE COOPER ([id number]) [facility] [place] (SWRL[place]) [address] [place] [address] IMMATURE GRANS ABSOLUTE 0.0 10*3/uL Normal <0.1 [facility] Comment on above: Performed By: #### L [id number] #### Commercial Print Salesman: ANTOINE COOPER ([phone]) [facility] [place] (SWRL[place]) [address] [place] [address] Lymphocytes (Bld) [#/Vol] 2.1 10*3/uL Normal 1.0-4.3 [facility] Comment on above: Performed By: #### L [id number] #### Commercial Print Salesman: ANTOINE COOPER ([phone]) [facility] [place] (SWRL[place]) [address] [place] [address] Lymphocytes/100 WBC (Bld) 37.0 % Normal 15.0-45.0 [facility] Comment on above: Performed By: #### L [id number] #### Commercial Print Salesman: ANTOINE COOPER ([phone]) [facility] [place] (SWRL[place]) [address] [place] [address] MCH (RBC) [Entitic mass] 30.7 pg Normal 26.0-34.0 [facility] Comment on above: Performed By: #### L [id number] #### Commercial Print Salesman: ANTOINE COOPER ([phone]) [facility] [place] (SWRL[place]) [address] [place] [address] MCHC 32.2 % Normal 30.5-36.0 [facility] Comment on above: Performed By: #### L [id number] #### Commercial Print Salesman: ANTOINE COOPER ([phone]) [facility] [place] (SWRL[place]) [address] [place] [address] MCV (RBC) [Entitic vol] 95.4 fL Normal 77.0-99.0 [facility] Comment on above: Performed By: #### L [id number] #### Commercial Print Salesman: ANTOINE COOPER ([phone]) [facility] [place] (SWRLAB) [address] [place] [address] Monocytes (Bld) [#/Vol] 0.5 10*3/uL Normal 0.0-0.9 [facility] Comment on above: Performed By: #### L [id number] #### Commercial Print Salesman: ANTOINE COOPER ([phone]) JOSEMANUEL [place] (SWRLAB) [address] [place] [address] [place] Monocytes/100 WBC (Bld) 8.4 % Normal 5.0-13.0 [facility] Comment on above: Performed By: #### L [id number] #### Commercial Print Salesman: ANTOINE COOPER ([id number]) [facility] [place] (SWRLAB) [address] [place] [address] [place] NEUTROPHILS ABSOLUTE 3.0 10*3/uL Normal 1.8-7.5 [facility] Comment on above: Performed By: #### L [id number] #### Commercial Print Salesman: ANTOINE COOPER ([phone]) [facility] [place] (SWRL[place]) [address] [place] [address] [place] Neutrophils/100 WBC (Bld) 51.6 % Normal 38.0-82.0 [facility] Comment on above: Performed By: #### L [id number] #### Commercial Print Salesman: ANTOINE COOPER ([phone]) [facility] [place] (SWRL[place]) [address] [place] [address] NRBC 0.0 /100 WBCs Normal 0.0-2.0 [facility] Comment on above: Performed By: #### L [id number] #### Commercial Print Salesman: ANTOINE COOPER ([phone]) [facility] [place] (SWRL[place]) [address] [place] [address] Platelet mean volume (Bld) [Entitic vol] 10.7 fL Normal 9.0-12.7 [facility] Comment on above: Result Comment: MPV is a calculated measurement using platelet volume ratio Performed By: #### L [id number] #### Commercial Print Salesman: ANTOINE COOPER ([id number]) [facility] NATHAN RITTMAN (SWRLAB) [address] [place] [address] [place] Platelets (Bld) [#/Vol] 172 10*3/uL Normal 140-440 [facility] Comment on above: Performed By: #### L [id number] #### Commercial Print Salesman: ANTOINE COOPER ([id number]) [facility] [place] (SWRLAB) [address] [place] [address] [place] RBC (Bld) [#/Vol] 3.45 10*6/uL Low 3.80-5.20 [facility] Comment on above: Performed By: #### L [id number] #### Commercial Print Salesman: ANTOINE COOPER ([id number]) [facility] VELAZQUEZNATHAN RITTMAN (SWRLAB) [address] [place] [address] WBC (Bld) [#/Vol] 5.7 10*3/uL Normal 3.6-10.7 [facility] Comment on above: Performed By: #### L [id number] #### Commercial Print Salesman: ANTOINE COOPER ([phone]) [facility] [place]IT[facility] (SWRLAB) [address] [place] [address] 12 Lead EKG performed by [facility] on 07-19-2024 12 Lead EKG performed by [facility] Normal [facility] Cardiology Visit Reporton Cardiology Visit Report Normal [facility] Activated partial thrombopla stin time (aPTT) in platelet poor plasma by coagulation aOrdered By: Luigi Tinoco on 07-17-2024 aPTT Coag (Bld) [Time] 23.6 s Low 24.1-36.2 [facility] Comment on above: Order Comment: SEND OUT NOT ORDERABLE TEST TO [facility] ANYMORE PER PATTIE WISE Performed By: #### L 300.3900, L100.0100, L503.6550, L300.4310, L503.6030, L503.0105, L100.9950 ####[facility] [address] [place], [address] aPTT Coag (PPP) [Time] 23.6 s Low 24.1-36.2 [facility] CBC W/Diff, Automatedon 08-2 -2023 Absolute Lymph 1.34 X10 3/uL Normal 0.83-4.51 [facility] Comment on above: Performed By: #### L 300.3900, L100.0100, L503.6550, L300.4310, L503.6030, L503.0105, L100.9950 ####[facility] [address] [place], [address] Absolute Neut 3.0 X10 3/uL Normal 2.0-7.7 [facility] Comment on above: Performed By: #### L 300.3900, L100.0100, L503.6550, L300.4310, L503.6030, L503.0105, L100.9950 ####[facility] [address] [place], [address] Basophils/100 WBC (Bld) 0.8 % Normal 0-1 [facility] Comment on above: Performed By: #### L 300.3900, L100.0100, L503.6550, L300.4310, L503.6030, L503.0105, L100.9950 ####[facility] [address] [place], [address] Eosinophils/100 WBC (Bld) 2.4 % Normal 0-5 [facility] Comment on above: Performed By: #### L 300.3900, L100.0100, L503.6550, L300.4310, L503.6030, L503.0105, L100.9950 ####[facility] [address] [place], [address] Erythrocyte distribution width (RBC) [Ratio] 14.1 % Normal 11.6-14.6 [facility] Comment on above: Performed By: #### L 300.3900, L100.0100, L503.6550, L300.4310, L503.6030, L503.0105, L100.9950 ####[facility] [address] [place], [address] Hematocrit (Bld) [Volume fraction] 33.4 % Low 37-47 [facility] Comment on above: Performed By: #### L 300.3900, L100.0100, L503.6550, L300.4310, L503.6030, L503.0105, L100.9950 ####[facility] [address] [place], [address] Hemoglobin (Bld) [Mass/Vol] 10.2 g/dL Low 12.0-15.0 [facility] Comment on above: Performed By: #### L 300.3900, L100.0100, L503.6550, L300.4310, L503.6030, L503.0105, L100.9950 ####[facility] [address] [place], [address] IG% 0.200 Normal 0.0-0.9 [facility] Comment on above: Result Comment: IG% - Immature Granulocytes (promyelocytes, myelocytes andmetamyelocytes) > 1% indicates that a LEFT SHIFT is Present. Performed By: #### L 300.3900, L100.0100, L503.6550, L300.4310, L503.6030, L503.0105, L100.9950 ####[facility] [address] [place], [address] Lymphocytes/100 WBC (Bld) 26.9 % Normal 19-41 [facility] Comment on above: Performed By: #### L 300.3900, L100.0100, L503.6550, L300.4310, L503.6030, L503.0105, L100.9950 ####[facility] [address] [place], [address] MCH (RBC) [Entitic mass] 29.7 pg Normal 27.0-32.0 [facility] Comment on above: Performed By: #### L 300.3900, L100.0100, L503.6550, L300.4310, L503.6030, L503.0105, L100.9950 ####[facility] [address] [place], [address] MCHC (RBC) [Mass/Vol] 30.5 g/dL Low 32-36 [facility] Comment on above: Performed By: #### L 300.3900, L100.0100, L503.6550, L300.4310, L503.6030, L503.0105, L100.9950 ####[facility] [address] [place], [address] MCV (RBC) [Entitic vol] 97.1 fL Normal 81-99 [facility] Comment on above: Performed By: #### L 300.3900, L100.0100, L503.6550, L300.4310, L503.6030, L503.0105, L100.9950 ####[facility] [address] [place], [address] Monocytes/100 WBC (Bld) 8.8 % Normal 0-10 [facility] Comment on above: Performed By: #### L 300.3900, L100.0100, L503.6550, L300.4310, L503.6030, L503.0105, L100.9950 ####[facility] [address] [place], [address] Neutrophils/100 WBC (Bld) 60.9 % Normal 47-70 [facility] Comment on above: Performed By: #### L 300.3900, L100.0100, L503.6550, L300.4310, L503.6030, L503.0105, L100.9950 ####[facility] [address] [place], [address] Nucleated RBC (Bld) [#/Vol] 0 10*3/uL Normal 0-5 [facility] Comment on above: Performed By: #### L 300.3900, L100.0100, L503.6550, L300.4310, L503.6030, L503.0105, L100.9950 ####[facility] [address] [place], [address] Platelet mean volume (Bld) [Entitic vol] 10.6 fL Normal 6.2-12.0 [facility] Comment on above: Performed By: #### L 300.3900, L100.0100, L503.6550, L300.4310, L503.6030, L503.0105, L100.9950 ####[facility] [address] [place], [address] Platelets (Bld) [#/Vol] 193 10*3/uL Normal 150-450 [facility] Comment on above: Performed By: #### L 300.3900, L100.0100, L503.6550, L300.4310, L503.6030, L503.0105, L100.9950 ####[facility] [address] [place], [address] RBC (Bld) [#/Vol] 3.44 10*6/uL Low 4.2-5.4 [facility] Comment on above: Performed By: #### L 300.3900, L100.0100, L503.6550, L300.4310, L503.6030, L503.0105, L100.9950 ####[facility] [address] [place], [address] RDW SD 50.0 fl High 35.1-43.9 [facility] Comment on above: Performed By: #### L 300.3900, L100.0100, L503.6550, L300.4310, L503.6030, L503.0105, L100.9950 ####[facility] [address] [place], [place], [phone] WBC (Bld) [#/Vol] 5.0 10*3/uL Normal 4.4-11.0 [facility] Comment on above: Performed By: #### L 300.3900, L100.0100, L503.6550, L300.4310, L503.6030, L503.0105, L100.9950 ####[facility] [address] [place], [place], [id number] Ferritinon 07-17-2024 Ferritin [Mass/Vol] 58 ng/mL Normal 8-252 [facility] Comment on above: Order Comment: SEND OUT NOT ORDERABLE TEST TO [facility] ANYMORE PER KELSEYNOTIFIED [facility] Performed By: #### L 300.3900, L100.0100, L503.6550, L300.4310, L503.6030, L503.0105, L100.9950 ####[facility] [address] [place], [place], [phone] International normalized rat io (INR) calculationOrdered By: Luigi Tinoco on 07-17-2024 INR Coag (Bld) [Relative time] 1.0 {INR} [facility] Iron+Iron Binding Capacityon 07-17-2024 Iron [Mass/Vol] 40 ug/dL Low 50-170 [facility] Comment on above: Order Comment: SEND OUT NOT ORDERABLE TEST TO [facility] ANYMORE PER KELSEYNOTIFIED [facility] Performed By: #### L 300.3900, L100.0100, L503.6550, L300.4310, L503.6030, L503.0105, L100.9950 ####[facility] [address] [place], [place], [phone] IRON SATURATION 16.7 Normal 15.0-55.0 [facility] Comment on above: Order Comment: SEND OUT NOT ORDERABLE TEST TO [facility] ANYMORE PER KELSEYNOTIFIED [facility] Performed By: #### L 300.3900, L100.0100, L503.6550, L300.4310, L503.6030, L503.0105, L100.9950 ####[facility] [address] [place], [place], [phone] TIBC 239 ug/dL Low 250-450 [facility] Comment on above: Order Comment: SEND OUT NOT ORDERABLE TEST TO [facility] ANYMORE PER KELSEYNOTIFIED [place] Performed By: #### L 300.3900, L100.0100, L503.6550, L300.4310, L503.6030, L503.0105, L100.9950 ####[facility] [address] [place], [place], [phone] Miscellaneous Lab Procedureo n 07-17-2024 MISC LAB TEST Normal [facility] Comment on above: Order Comment: Comme nts: [id number] BLUE, 5ML WB-TALL LAV, 1 SERUMhypercoagulable work up [id number] Result Comment: TEST RESULTS LIMITSVenous Thromb. Patients [...] was developed and its performancecharacteristics determined by [employer]. It has not been cleared orapproved by the Food and Drug Administration. Factor VII Antigen 124 % Reference Range: 7 months and older: 60 - 175 Results of this test are for research purposes only per the assay chief projectionist. The performance characteristicsof this assay have not been established. The result shouldnot be used as a diagnostic procedure without confirmation of the diagnosis by another medically established diagnostic product or procedure. Protein C Ag/FVII Ag Ratio 0.9 ratio Reference Range: 0.5 - 2.2 Results of this test are for research purposes only per the assay chief projectionist. The performance characteristicsof this assay have not been established. The result shouldnot be used as a diagnostic procedure without confirmation of the diagnosis by another medically established diagnostic product or procedure.Protein S Ag/FVII Ag Ratio 0.6 ratio Reference Range: 0.5 - 2.2 Results of this test are for research purposes only per the assay chief projectionist. The performance characteristicsof this assay have not [...] and older: 22.9 - 30.2 APTT 1:1 ROAD EQUIPMENT OPERATOR Testing Not Indicated This test was developed and its performancecharacteristics determined by [facility]. It has not been cleared orapproved by the [place] Food and Drug Administration. APTT 1:1 Saline Testing Not Indicated This test was developed and its performancecharacteristics determined by [facility]. It has not been cleared orapproved by the [place] Food and Drug Administration. LAC Interpretation A lupus anticoagulant is not detected. Allantiphospholipid antibodies evaluated are normal. As antibody titers may fluctuate with time, repeat testing may be indicated. Please contact [facility] if further clarification is needed. DRVVT Screen [...] Gene Mutation Result G-G (Normal-Normal) No prothrombin [id number] mutation present. Interpretation: While the patient does not possess this risk factor,other thrombotic risk factors may be detected throughsystematic clinical laboratory analysis. Methodology: Patient DNA was evaluated for the factor [place] [address] using PCR amplification followed by restriction analysis and gel electrophoresis. Comments: Simultaneous Risks: If a patient possesses two or more congenital or acquired thrombophilic risk factors, therisk of thrombosis may rise to more than the sum of the risk ratios for the individual risk factors. For instance, a combination of the prothrombin S50429I mutation and the factor V Leiden mutation [...] personnel. This assay detects only the prothrombin I29154S mutation and does not detect other genetic abnormalities. This test was developed and its performancecharacteristics determined by [employer]. It has not been cleared orapproved by the Food and Drug Administration. References: Fortino K, et al. Br J of Haem. 1997;98:907. Ellen AM, et al. Br J of Haem. 1997;98:353. Dony Barragan and Jovani Mol.Diagn. 2001;6(3):201. Greer Garcia, et al. Thromb Haemost. 2001;86:809-16. Grace Baca, et al. Thromb Haemost. 1999;82:1583. TESTING PERFORMED AT [facility]. ORIGINAL REPORT ON FILE IN LAB CONTAINS ADDITIONAL TEST SITE INFORMATION. Performed By: #### L 300.3900, L3410.2400, L2100.0000, L801.1541, L3100.5440, L3100.3425, L3300.1200, L500.4050 ####[facility] [address] [place], [address] Oncology Visit Reporton 06-23 Oncology Visit Report Normal [facility] Prothrombin Time w/INRon INR Coag (PPP) [Relative time] 1.0 {INR} Normal [facility] Comment on above: Order Comment: SEND OUT NOT ORDERABLE TEST TO [facility] ANYMORE PER KELSEYNOTIFIED [facility] Performed By: #### L 300.3900, L100.0100, L503.6550, L300.4310, L503.6030, L503.0105, L100.9950 ####[facility] [address] [place], [address] Prothrombin timeOrdered By: Luigi Tinoco on 07-17-2024 PT Coag (PPP) [Time] 13.3 s Normal 11.7-14.9 [facility] Comment on above: Order Comment: SEND OUT NOT ORDERABLE TEST [facility] Performed By: #### L 300.3900, L100.0100, L503.6550, L300.4310, L503.6030, L503.0105, L100.9950 ####[facility] [address] [place], [address] Retic Panelon 07-17-2024 IM RET FRACTION 22.20 High 3.00-15.90 [facility] Comment on above: Performed By: #### L 300.3900, L100.0100, L503.6550, L300.4310, L503.6030, L503.0105, L100.9950 ####[facility] [address] [place], [address] RET-HE 32.5 pg Normal 30-35 [facility] Comment on above: Performed By: #### L 300.3900, L100.0100, L503.6550, L300.4310, L503.6030, L503.0105, L100.9950 ####[facility] [address] [place], [address] Retic Count 2.71 High 0.5-1.5 [facility] Comment on above: Performed By: #### L 300.3900, L100.0100, L503.6550, L300.4310, L503.6030, L503.0105, L100.9950 ####[facility] [address] [place], [address] Vitamin B12 measurementOrder ed By: Luigi Tinoco on 07-17-2024 Cobalamin (Vitamin B12) [Mass/Vol] 1211 pg/mL High 211-911 [facility] Comment on above: Order Comment: SEND OUT NOT ORDERABLE TEST [facility] ANYMORE PER PATTIE WISE Performed By: #### L 300.3900, L100.0100, L503.6550, L300.4310, L503.6030, L503.0105, L100.9950 ####[facility] [address] [place], [address] Protein C Defic. Profileon 0 07-14-2024 PROTEIN C,FUNC TNP Normal [facility] Comment on above: Performed By: #### L 3100.8410, L4500.5000, L3410.2000, L3100.2300, L4500.2000, L3100.7325, L3100.7275, L3300.0450, L3100.3425 ####[facility] [address] [place], [address] AT III Func / Immunolon 06-23 AT3 AG, IMMUNOL 65 Abnormal 72-124 [facility] Comment on above: Result Comment: This test was developed and its performance characteristicsdetermined by [facility]. It has not been cleared orapproved by the Food and Drug Administration. Performed By: #### L 3100.8410, L4500.5000, L3410.2000, L3100.2300, L4500.2000, L3100.7325, L3100.7275, L3300.0450, L3100.3425 ####[facility] [address] [place], [address] AT3 FUNCTIONAL 89 Normal 75-135 [facility] Comment on above: Result Comment: Dire ct Xa inhibitor anticoagulants such as rivaroxaban,apixaban and edoxaban will lead to spuriously elevatedantithrombin activity levels possibly masking a deficiency. Performed By: #### L 3100.8410, L4500.5000, L3410.2000, L3100.2300, L4500.2000, L3100.7325, L3100.7275, L3300.0450, L3100.3425 ####[facility] [address] [place], [address](536) Anticardiolipin IgG, IgMon 0 07-13-2024 Anticardio.IgG < 9 Normal 0-14 [facility] Comment on above: Result Comment: Nega tive: <15 Indeterminate: 15 - 20 Low-Med Positive: >20 - 80 High Positive: >80 Performed By: #### L 3100.8410, L4500.5000, L3410.2000, L3100.2300, L4500.2000, L3100.7325, L3100.7275, L3300.0450, L3100.3425 ####[facility] [address] [place], [address] Anticardio.IgM < 9 Normal 0-12 [facility] Comment on above: Result Comment: Nega tive: <13 Indeterminate: 13 - 20 Low-Med Positive: >20 - 80 High Positive: >80 Performed By: #### L 3100.8410, L4500.5000, L3410.2000, L3100.2300, L4500.2000, L3100.7325, L3100.7275, L3300.0450, L3100.3425 ####[facility] [address] [place], [address] Beta-2 Glycoprot IgG, A, 07-13-2024 B2 GLYCO I IGA <9 Normal 0-25 [facility] Comment on above: Result Comment: Resu lt Units: GPI IgA unitsThe reference interval reflects a 3SD or 99th percentileinterval, which is thought to represent a potentiallyclinically significant result in accordance with theInternational Consensus Statement on the classificationcriteria for definitive antiphospholipid syndrome (APS). JThromb Haem 2006;4:295-306. Performed By: #### L 3100.8410, L4500.5000, L3410.2000, L3100.2300, L4500.2000, L3100.7325, L3100.7275, L3300.0450, L3100.3425 ####[facility] [address] [place], [place], [phone] B2 GLYCO I IGG <9 Normal 0-20 [facility] Comment on above: Result Comment: Resu lt Units: GPI IgG unitsThe reference interval reflects a 3SD or 99th percentileinterval, which is thought to represent a potentiallyclinically significant result in accordance with theInternational Consensus Statement on the classificationcriteria for definitive antiphospholipid syndrome (APS). JThromb Haem 2006;4:295-306. Performed By: #### L 3100.8410, L4500.5000, L3410.2000, L3100.2300, L4500.2000, L3100.7325, L3100.7275, L3300.0450, L3100.3425 ####[facility] [address] [place], [address] B2 GLYCO I IGM <9 Normal 0-32 [facility] Comment on above: Result Comment: Resu lt Units: GPI IgM unitsThe reference interval reflects a 3SD or 99th percentileinterval, which is thought to represent a potentiallyclinically significant result in accordance with theInternational Consensus Statement on the classificationcriteria for definitive antiphospholipid syndrome (APS). JThromb Haem 2006;4:295-306. Performed By: #### L 3100.8410, L4500.5000, L3410.2000, L3100.2300, L4500.2000, L3100.7325, L3100.7275, L3300.0450, L3100.3425 ####[facility] [address] [place], [place], [phone] Carcinoembryonic Antigenon 0 07-13-2024 CEA 2.3 ng/mL Normal 0.0-4.7 [facility] Comment on above: Result Comment: Nons mokers <3.9 Smokers <5.6Roche Diagnostics Electrochemiluminescence Immunoassay(ECLIA)Values obtained with different assay methods or kitscannot be used interchangeably. Results cannot beinterpreted as absolute evidence of the presence orabsence of malignant disease.Performed at: - [facility] [id number] Director: Bulmaro Nesbitt PhD, Phone: [phone] at: [facility] Lab[address] [id number] Director: Stanton Vargas MD, Phone: [phone] at: [facility] LabBarnes-Jewish West [facility] HospitalP[facility] [place], [place] [id number] Director: Jacki Amador [facility], Phone: [phone] Performed By: #### L 3100.8410, L4500.5000, L3410.2000, L3100.2300, L4500.2000, L3100.7325, L3100.7275, L3300.0450, L3100.3425 ####[facility] [address] [place], [address] Fact V Leiden Mutationon FACTOR V LEIDEN Comment Normal . [facility] Comment on above: Result Comment: Resu lt: c.1601G>A (p.Ntq603Oan) - Not DetectedThis result is not associated with an increased risk for venousthromboembolism. See Additional Clinical Information andComments.Additional Clinical Information:Venous thromboembolism is a multifactorial diseaseinfluenced by genetic, environmental, and circumstantialrisk factors. The c.1601G>A (p. Ojt199Bmy) variant in theF5 gene, commonly referred to [...] F2 c.*97G>Avariant and Factor V Leiden (PMID: 97429236). Additionalrisk factors include but are not limited [...] for health careproviders to discuss results at [phone] ([phone]).Test Details:Variant Analyzed: c.1601G>A (p. Czq608Zxs), referred toas Factor V LeidenMethods/Limitations:DNA analysis of [...] was developed and its performance characteristicsdetermined by [facility]. It has not been cleared orapproved by the Food and Drug Administration.References:Jalil S, Della AK, Everton R, Brian WW, Eric BELTRAN; ACProfessional Practice and Guidelines Committee. Addendum:[employer] [employer] consensus statement onfactor V Leiden mutation testing. Lyndsey Med. 2020Jan 24.doi: 10.1038/q72601-912-76471-v. PMID: 99617848.Ximena CARDENAS. Factor V Leiden Thrombophilia. 1998April 04(Updated 2017Nov 25). In: Eulogio MP, Brittney HH, Chantell RA,et al., editors. Gloria(Bairon) (Internet). [place]):[facility]; 3665-6650. Availablefrom: https://www.ncbi.nlm.nih.gov/books/WKL2393/Al S, Della AK, Wang X, Jeffery B, Desirae EB, Symone P,Timothy CS; ACMG Laboratory Lieutenant Ballistics Committee.Venous thromboembolism laboratory testing (factor V Leidenand factor II c.*97G>A), 2018 update: a technical standardof the [place] [employer] and Genomics(ACMG). Lydnsey Med. 2018 Oct;20(12):8772-3676. doi:10.1038/[id number]-d. Epub 2017Aug 26. PMID: 32811785. Performed By: #### L 3100.8410, L4500.5000, L3410.2000, L3100.2300, L4500.2000, L3100.7325, L3100.7275, L3300.0450, L3100.3425 ####[facility] [address] [place], [address] Reviewed By Comment Normal . [facility] Comment on above: Result Comment: Tech nical Component performed at [facility] RTPProfessional Component performed by:Dorothy Stahl, Ph.D., FACMGDirector, Molecular [address] [facility] [place] [address] Performed By: #### L 3100.8410, L4500.5000, L3410.2000, L3100.2300, L4500.2000, L3100.7325, L3100.7275, L3300.0450, L3100.3425 ####[facility] [address] [place], [address] Factor II, DNA Analysison FACTOR II, DNA Comment Normal . [facility] Comment on above: Result Comment: Resu [...] in theF2 gene and a c.1601G>A (p. Zwo179Whv) variant in the F5 gene(commonly referred to as Factor V Leiden) have an approximately 20-fold increased risk for venous thromboembolism. Risks are likely soren even higher in more complex genotype combinations involving theF2 c.*97G>A variant and Factor V Leiden (PMID: 46503017). Additionalrisk factors include but are not limited [...] for health care providers to discussresults at [phone] ([phone]).Test Details:Variant analyzed: c.*97G>A, previously referred to as Q80130VVjzomef/Limitations:DNA analysis of the F2 gene (NM_000506.5) was [...] was developed and its performance characteristics determinedby [employer]. It has not been cleared or approved by the Food and DrugAdministration.References:Jalil S, Della BURNHAM, Everton R, Brian WW, Eric JH; ACMG ProfessionalPractice and Guidelines Committee. Addendum: [place] [employer] of[employer] consensus statement on factor V Leiden mutationtesting. Lyndsey Med. 2020Jan 24. doi: 10.1038/[id number]-m.PMID: 38270769.Ximena CARDENAS. Prothrombin Thrombophilia. 2005Jun 15[Updated 2020Dec 26]. In: Eulogio MP, Brittney HH, Chantell RA, et al.,editors. Gloria(R) [Internet]. [place]): [facility]; 7664-4246. Available from:https://www.ncbi.nlm.nih.gov/books/DPM2018/Al S, Della BURNHAM, Wang X, Jeffery B, Desirae EB, Symone P, Timothy CS;ACMG Laboratory Lieutenant Ballistics Committee. Venous thromboembolismlaboratory testing (factor V Leiden and factor II c.*97G>A),2018 update: a technical standard of the [place] [employer] of MedicalGenetics and Genomics (ACMG). Lyndsey Med. 2018 Oct;20(12):6837-3326.doi: 10.1038/[id number]-a. Epub 2017Aug 26. PMID: 08339881. Performed By: #### L 3100.8410, L4500.5000, L3410.2000, L3100.2300, L4500.2000, L3100.7325, L3100.7275, L3300.0450, L3100.3425 ####[facility] [address] [place], [place], [phone] DARIANA + Protein Elect, Serumon 07-13-2024 Albumin [Mass/Vol] 3.1 g/dL Normal 2.9-4.4 [facility] Comment on above: Performed By: #### L 3100.8410, L4500.5000, L3410.2000, L3100.2300, L4500.2000, L3100.7325, L3100.7275, L3300.0450, L3100.3425 ####[facility] [address] [place], [place], [phone]) Albumin/Globulin [Mass ratio] 1.1 {ratio} Normal 0.7-1.7 [facility] Comment on above: Performed By: #### L 3100.8410, L4500.5000, L3410.2000, L3100.2300, L4500.2000, L3100.7325, L3100.7275, L3300.0450, L3100.3425 ####[facility] [address] [place], [address] UKGHK-0-ASQJ 0.3 g/dL Normal 0.0-0.4 [facility] Comment on above: Performed By: #### L 3100.8410, L4500.5000, L3410.2000, L3100.2300, L4500.2000, L3100.7325, L3100.7275, L3300.0450, L3100.3425 ####[facility] [address] [place], [place], [phone](732) FNZSC-5-HPRG 1.0 g/dL Normal 0.4-1.0 [facility] Comment on above: Performed By: #### L 3100.8410, L4500.5000, L3410.2000, L3100.2300, L4500.2000, L3100.7325, L3100.7275, L3300.0450, L3100.3425 ####[facility] [address] [place], [place], [phone] BETA GLOBULIN 0.7 g/dL Normal 0.7-1.3 [facility] Comment on above: Performed By: #### L 3100.8410, L4500.5000, L3410.2000, L3100.2300, L4500.2000, L3100.7325, L3100.7275, L3300.0450, L3100.3425 ####[facility] [address] [place], [address] GAMMA GLOBULIN 1.0 g/dL Normal 0.4-1.8 [facility] Comment on above: Performed By: #### L 3100.8410, L4500.5000, L3410.2000, L3100.2300, L4500.2000, L3100.7325, L3100.7275, L3300.0450, L3100.3425 ####[facility] [address] [place], [address] Globulin (S) [Mass/Vol] 3.0 g/dL Normal 2.2-3.9 [facility] Comment on above: Performed By: #### L 3100.8410, L4500.5000, L3410.2000, L3100.2300, L4500.2000, L3100.7325, L3100.7275, L3300.0450, L3100.3425 ####[facility] [address] [place], [address] DARIANA RESULT,S Comment Normal . [facility] Comment on above: Result Comment: No m onoclonality detected. Performed By: #### L 3100.8410, L4500.5000, L3410.2000, L3100.2300, L4500.2000, L3100.7325, L3100.7275, L3300.0450, L3100.3425 ####[facility] [address] [place], [address] IMMUNOGLOB A QN 197 mg/dL Normal 64-422 [facility] Comment on above: Performed By: #### L 3100.8410, L4500.5000, L3410.2000, L3100.2300, L4500.2000, L3100.7325, L3100.7275, L3300.0450, L3100.3425 ####[facility] [address] [place], [address] IMMUNOGLOB G QN 1037 mg/dL Normal 586-1602 [facility] Comment on above: Performed By: #### L 3100.8410, L4500.5000, L3410.2000, L3100.2300, L4500.2000, L3100.7325, L3100.7275, L3300.0450, L3100.3425 ####[facility] [address] [place], [address] IMMUNOGLOB M QN 52 mg/dL Normal 26-217 [facility] Comment on above: Performed By: #### L 3100.8410, L4500.5000, L3410.2000, L3100.2300, L4500.2000, L3100.7325, L3100.7275, L3300.0450, L3100.3425 ####[facility] [address] [place], [address] M-Bob Not Observed Normal Not Observed [facility] Comment on above: Performed By: #### L 3100.8410, L4500.5000, L3410.2000, L3100.2300, L4500.2000, L3100.7325, L3100.7275, L3300.0450, L3100.3425 ####[facility] [address] [place], [address] NOTE: Comment Normal . [facility] Comment on above: Result Comment: Prot ein electrophoresis scan will follow via computer,mail, or egg factory worker delivery. Performed By: #### L 3100.8410, L4500.5000, L3410.2000, L3100.2300, L4500.2000, L3100.7325, L3100.7275, L3300.0450, L3100.3425 ####[facility] [address] [place], [address] Protein [Mass/Vol] 6.1 g/dL Normal 6.0-8.5 [facility] Comment on above: Performed By: #### L 3100.8410, L4500.5000, L3410.2000, L3100.2300, L4500.2000, L3100.7325, L3100.7275, L3300.0450, L3100.3425 ####[facility] [address] [place], [address] Protein C, Functionalon 06-23 PROTEIN C,FUNC 89 Normal 73-180 [facility] Comment on above: Performed By: #### L 3100.8410, L4500.5000, L3410.2000, L3100.2300, L4500.2000, L3100.7325, L3100.7275, L3300.0450, L3100.3425 ####[facility] [address] [place], [address] 36on 07-11-2024 36 Name of caller: Ashtyn Contact phone number: [phone] Relationship to Patient: [facility] Provider: Dr. Lopez Practice: [facility] [place] Chief Complaint/Reason for Call: Ashtyn from [facility] called in regards to a message they received from the office and they are not sure what this was in regards to. Ashtny is requesting a call back and they can be reached at #[phone]. Please advise. Best time of day caller can be reached: Any Patient advised that office/PCP has 24-48 business hours to return their call: No Normal [facility] XR Abdomen Single viewon 1. Nonobstructive bowel gas pattern, and findings suggestive of constipation. 2. Possible cholelithiasis. Report Dictated on Electronically Signed By: Laurent Kaba MD Electronically Signed Date/Time: 07/11/2024 7:14 PM EDT [facility] EMERGENCY DEPARTMENT CNS Response SYSTEM Patient Name: MANSI CARO : 1955 [...] diffuse degenerative change in the lumbar spine. [facility] Laurent Kaba MD - 07/11/2024 Patient [...] Electronically Signed Date/Time: 07/11/2024 7:14 PM EDT [facility] XR Abdomen Single viewOrdere d By: Laurent Kaba on 07-11-2024 [facility] Work Phone: XR Abdomen Single viewon Radiology Study observation (narrative) [facility] ANCAon 07-07-2024 Atypical pANCA <1:20 Normal Neg:<1:20 [facility] Comment on above: Order Comment: [id number] Result Comment: The atypical pANCA pattern has been observed in asignificant percentage of patients with ulcerative colitis,primary sclerosing cholangitis and autoimmune hepatitis.Performed at: - [facility] [address] [place], [place] [id number] Director: Bulmaro Nesbitt PhD, Phone: [phone] at: [facility] [address]coJames [place] [place], [place] [id number] Director: Stanton Vargas MD, Phone: [phone] Performed By: #### L 300.3900, L3410.2400, L2100.0000, L801.1541, L3100.5440, L3100.3425, L3300.1200, L500.4050 ####[facility] [address] [place], [place], [phone] Cytoplasmic Ab <1:20 Normal Neg:<1:20 [facility] Comment on above: Order Comment: [id number] Performed By: #### L 300.3900, L3410.2400, L2100.0000, L801.1541, L3100.5440, L3100.3425, L3300.1200, L500.4050 ####[facility] [address] [place], [place], [address] Perinuclear Ab. <1:20 Normal Neg:<1:20 [facility] Comment on above: Order Comment: [id number] Result Comment: The presence of positive fluorescence exhibiting P-ANCA orC-ANCA patterns alone is not specific for the diagnosis ofWegener's Granulomatosis (WG) or microscopic polyangiitis.Decisions about treatment should not be based solely onANCA IFA results. The International ANCA Group Consensusrecommends follow up testing of positive sera with both KS-3 and MPO-ANCA enzyme immunoassays. As many as 5% serumsamples are positive only by EIA. Ref. AM J Clin Vhubat3932;111:507-513. Performed By: #### L 300.3900, L3410.2400, L2100.0000, L801.1541, L3100.5440, L3100.3425, L3300.1200, L500.4050 ####[facility] [address] [place], [address] Celiac Disease Profileon ENDOMYSIAL IGA Negative Normal Negative [facility] Comment on above: Order Comment: [id number] Performed By: #### L 300.3900, L3410.2400, L2100.0000, L801.1541, L3100.5440, L3100.3425, L3300.1200, L500.4050 ####[facility] [address] [place], [address] tTG IGA <2 Normal 0-3 [facility] Comment on above: Order Comment: [id number] Result Comment: Nega tive 0 - 3 Weak Positive 4 - 10 Positive >10 Tissue Transglutaminase (tTG) has been identified as the endomysial antigen. Studies have demonstr- ated that endomysial IgA antibodies have over 99% specificity for gluten sensitive enteropathy. Performed By: #### L 300.3900, L3410.2400, L2100.0000, L801.1541, L3100.5440, L3100.3425, L3300.1200, L500.4050 ####[facility] [address] [place], [address] DARIANA + Protein Elect, Serumon 07-07-2024 Albumin [Mass/Vol] 3.2 g/dL Normal 2.9-4.4 [facility] Comment on above: Order Comment: [id number] Performed By: #### L 300.3900, L3410.2400, L2100.0000, L801.1541, L3100.5440, L3100.3425, L3300.1200, L500.4050 ####[facility] [address] [place], [address] Albumin/Globulin [Mass ratio] 1.1 {ratio} Normal 0.7-1.7 [facility] Comment on above: Order Comment: [id number] Performed By: #### L 300.3900, L3410.2400, L2100.0000, L801.1541, L3100.5440, L3100.3425, L3300.1200, L500.4050 ####[facility] [address] [place], [address](154 MOMEY-7-AEIA 0.4 g/dL Normal 0.0-0.4 [facility] Comment on above: Order Comment: [id number] 68 Performed By: #### L 300.3900, L3410.2400, L2100.0000, L801.1541, L3100.5440, L3100.3425, L3300.1200, L500.4050 ####[facility] [address] [place], [address](621 PUJQA-6-RZAF 1.0 g/dL Normal 0.4-1.0 [facility] Comment on above: Order Comment: [id number] 68 Performed By: #### L 300.3900, L3410.2400, L2100.0000, L801.1541, L3100.5440, L3100.3425, L3300.1200, L500.4050 ####[facility] [address] [place], [address](462 BETA GLOBULIN 0.8 g/dL Normal 0.7-1.3 [facility] Comment on above: Order Comment: [id number] 68 Performed By: #### L 300.3900, L3410.2400, L2100.0000, L801.1541, L3100.5440, L3100.3425, L3300.1200, L500.4050 ####[facility] [address] [place], [address] GAMMA GLOBULIN 1.1 g/dL Normal 0.4-1.8 [facility] Comment on above: Order Comment: [id number] 68 Performed By: #### L 300.3900, L3410.2400, L2100.0000, L801.1541, L3100.5440, L3100.3425, L3300.1200, L500.4050 ####[facility] [address] [place], [address] Globulin (S) [Mass/Vol] 3.2 g/dL Normal 2.2-3.9 [facility] Comment on above: Order Comment: [id number] 68 Performed By: #### L 300.3900, L3410.2400, L2100.0000, L801.1541, L3100.5440, L3100.3425, L3300.1200, L500.4050 ####[facility] [address] [place], [address] DARIANA RESULT,S Comment Normal . [facility] Comment on above: Order Comment: [id number] Result Comment: No m onoclonality detected. Performed By: #### L 300.3900, L3410.2400, L2100.0000, L801.1541, L3100.5440, L3100.3425, L3300.1200, L500.4050 ####[facility] [address] [place], [address] IMMUNOGLOB A QN 204 mg/dL Normal 64-422 [facility] Comment on above: Order Comment: [id number] 68 Performed By: #### L 300.3900, L3410.2400, L2100.0000, L801.1541, L3100.5440, L3100.3425, L3300.1200, L500.4050 ####[facility] [address] [place], [address] IMMUNOGLOB G QN 1094 mg/dL Normal 586-1602 [facility] Comment on above: Order Comment: [id number] 68 Performed By: #### L 300.3900, L3410.2400, L2100.0000, L801.1541, L3100.5440, L3100.3425, L3300.1200, L500.4050 ####[facility] [address] [place], [address] IMMUNOGLOB M QN 53 mg/dL Normal 26-217 [facility] Comment on above: Order Comment: [id number] 68 Performed By: #### L 300.3900, L3410.2400, L2100.0000, L801.1541, L3100.5440, L3100.3425, L3300.1200, L500.4050 ####[facility] [address] [place], [address] M-Bob Not Observed Normal Not Observed [facility] Comment on above: Order Comment: [id number] 68 Performed By: #### L 300.3900, L3410.2400, L2100.0000, L801.1541, L3100.5440, L3100.3425, L3300.1200, L500.4050 ####[facility] [address] [place], [place], [id number] NOTE: Comment Normal . [facility] Comment on above: Order Comment: [id number] Result Comment: Prot ein electrophoresis scan will follow via computer,mail, or egg factory worker delivery. Performed By: #### L 300.3900, L3410.2400, L2100.0000, L801.1541, L3100.5440, L3100.3425, L3300.1200, L500.4050 ####[facility] [address] [place], [place], [phone]) Protein [Mass/Vol] 6.4 g/dL Normal 6.0-8.5 [facility] Comment on above: Order Comment: [id number] 68 Performed By: #### L 300.3900, L3410.2400, L2100.0000, L801.1541, L3100.5440, L3100.3425, L3300.1200, L500.4050 ####[facility] [address] [place], [address] L2100.0000on 07-07-2024 ACCA 18 units Normal 0-90 [facility] Comment on above: Order Comment: N50 Result Comment: Nega tive: <80 Equivocal: 80-90 Positive: >90 Performed By: #### L 300.3900, L3410.2400, L2100.0000, L801.1541, L3100.5440, L3100.3425, L3300.1200, L500.4050 ####[facility] [address] [place], [address](056) ALCA 7 units Normal 0-60 [facility] Comment on above: Order Comment: N50 Result Comment: Nega tive:<55 Equivocal: 55-60 Positive: >60 Performed By: #### L 300.3900, L3410.2400, L2100.0000, L801.1541, L3100.5440, L3100.3425, L3300.1200, L500.4050 ####[facility] [address] [place], [address](190) AMCA 34 units Normal 0-100 [facility] Comment on above: Order Comment: N50 Result Comment: Nega tive: <90 Equivocal: 90-100 Positive: >100 This test was developed and its performance characteristics determined by [employer]. It has not been cleared or approved by the Food and Drug Administration. The FDA has determined that such clearance or approval is not necessary. Performed By: #### L 300.3900, L3410.2400, L2100.0000, L801.1541, L3100.5440, L3100.3425, L3300.1200, L500.4050 ####[facility] [address] [place], [address] Atypical pANCA Negative Normal Negative [facility] Comment on above: Order Comment: [id number] Performed By: #### L 300.3900, L3410.2400, L2100.0000, L801.1541, L3100.5440, L3100.3425, L3300.1200, L500.4050 ####[facility] [address] [place], [address] COMMENT Comment Normal . [facility] Comment on above: Order Comment: [id number] 68 Result Comment: Jennifer riya is not suggestive of Inflammatory Bowel Disease Performed By: #### L 300.3900, L3410.2400, L2100.0000, L801.1541, L3100.5440, L3100.3425, L3300.1200, L500.4050 ####[facility] [address] [place], [address] Edson 28 units Normal 0-50 [facility] Comment on above: Order Comment: [id number] 68 Result Comment: Nega tive: <45 Equivocal: 45-50 Positive: >50 Performed By: #### L 300.3900, L3410.2400, L2100.0000, L801.1541, L3100.5440, L3100.3425, L3300.1200, L500.4050 ####[facility] [address] [place], [address] Lupus Anticoagulant Compon 0 8- aPTT Coag (Bld) [Time] 46.4 s High 0.0-43.5 [facility] Comment on above: Performed By: #### L 504.2610, L4500.0100 ####[facility] [address] [place], [address] aPTT Coag (Bld) [Time] 42.3 s High 0.0-40.5 [facility] Comment on above: Performed By: #### L 504.2610, L4500.0100 ####[facility] [address] [place], [address] DILUTE PT (dPT) 35.7 sec Normal 0.0-47.6 [facility] Comment on above: Performed By: #### L 504.2610, L4500.0100 ####[facility] [address] [place], [address] dPT Conf. Ratio 1.05 Ratio Normal 0.00-1.34 [facility] Comment on above: Performed By: #### L 504.2610, L4500.0100 ####[facility] [address] [place], [address] DRVVT 37.8 sec Normal 0.0-47.0 [facility] Comment on above: Performed By: #### L 504.2610, L4500.0100 ####[facility] [address] [place], [address] HEX PHAS PHOSPH 4 sec Normal 0-11 [facility] Comment on above: Performed By: #### L 504.2610, L4500.0100 ####[facility] [address] [place], [address] Interpretation Comment: Normal . [facility] Comment on above: Result Comment: No [...] performed in the absence ofanticoagulant therapy.Performed at: [address] [id number] Director: Stanton Vargas MD, Phone: [phone] Performed By: #### L 504.2610, L4500.0100 ####[facility] [address] [place], [address] THROMBIN TIME 17.3 sec Normal 0.0-23.0 [facility] Comment on above: Performed By: #### L 504.2610, L4500.0100 ####[facility] [address] [place], [address] AZALEA Comprehensive Panelon AZALEA TABLE Comment Normal . [facility] Comment on above: Result Comment: Auto antibody Disease Association -------- Condition Frequency ---------Antinuclear Antibody, SLE, mixed connectiveDirect (AZALEA-D) tissue diseases ---------dsDNA SLE 40 - 60% ---------Chromatin Drug induced SLE 90% SLE 48 - 97% ---------SSA (Ro) SLE 25 - 35% Sjogren's Syndrome 40 - 70% Lupus 100% ---------SSB (La) SLE 10% Sjogren's Syndrome 30% ---------Sm (anti-Castillo) SLE 15 - 30% ---------SERVICE TECH Mixed Connective Tissue Disease 95%(U1 nRNP, SLE 30 - 50%anti-ribonucleoprotein) Polymyositis and/or Dermatomyositis 20% ---------Scl-70 (antiDNA Scleroderma (diffuse) 20 - 35%topoisomerase) Crest 13% ---------Mary-1 Polymyositis and/or Dermatomyositis 20 - 40% ---------Centromere B Scleroderma - Crest variant 80%Performed at: [address] [id number] Director: Bulmaro Nesbitt PhD, Phone: [phone] Performed By: #### L 300.3900, L3410.2400, L2100.0000, L801.1541, L3100.5440, L3100.3425, L3300.1200, L500.5867 ####[facility] [address] [place], [address] ANTI-CENT B AB <0.2 Normal 0.0-0.9 [facility] Comment on above: Performed By: #### L 300.3900, L3410.2400, L2100.0000, L801.1541, L3100.5440, L3100.3425, L3300.1200, L500.4050 ####[facility] [address] [place], [address] ANTI-DNA (DS)AB 27 IU/mL Abnormal 0-9 [facility] Comment on above: Result Comment: Nega tive <5 Equivocal 5 - 9 Positive >9 Performed By: #### L 300.3900, L3410.2400, L2100.0000, L801.1541, L3100.5440, L3100.3425, L3300.1200, L500.4050 ####[facility] [address] [place], [address] ANTI-MARY-1 <0.2 Normal 0.0-0.9 [facility] Comment on above: Performed By: #### L 300.3900, L3410.2400, L2100.0000, L801.1541, L3100.5440, L3100.3425, L3300.1200, L500.4050 ####[facility] [address] [place], [address] ANTI-SS-A < 0.2 Normal 0.0-0.9 [facility] Comment on above: Performed By: #### L 300.3900, L3410.2400, L2100.0000, L801.1541, L3100.5440, L3100.3425, L3300.1200, L500.4050 ####[facility] [address] [place], [address] ANTI-SS-B < 0.2 Normal 0.0-0.9 [facility] Comment on above: Performed By: #### L 300.3900, L3410.2400, L2100.0000, L801.1541, L3100.5440, L3100.3425, L3300.1200, L500.4050 ####[facility] [address] [place], [address] ANTICHROMATIN <0.2 Normal 0.0-0.9 [facility] Comment on above: Performed By: #### L 300.3900, L3410.2400, L2100.0000, L801.1541, L3100.5440, L3100.3425, L3300.1200, L500.4050 ####[facility] [address] [place], [address] ANTISCLERODERM <0.2 Normal 0.0-0.9 [facility] Comment on above: Performed By: #### L 300.3900, L3410.2400, L2100.0000, L801.1541, L3100.5440, L3100.3425, L3300.1200, L500.4050 ####[facility] [address] [place], [address] SERVICE TECH Ab 0.2 AI Normal 0.0-0.9 [facility] Comment on above: Performed By: #### L 300.3900, L3410.2400, L2100.0000, L801.1541, L3100.5440, L3100.3425, L3300.1200, L500.4050 ####[facility] [address] [place], [address] CASTILLO Ab <0.2 Normal 0.0-0.9 [facility] Comment on above: Performed By: #### L 300.3900, L3410.2400, L2100.0000, L801.1541, L3100.5440, L3100.3425, L3300.1200, L500.4050 ####[facility] [address] [place], [address] Basic Metabolic Profile (BMP )on 07-05-2024 BUN/CRE 8.8 RATIO Low 10-20 [facility] Comment on above: Performed By: #### L 100.0500, L500.2500 ####[facility] [address] [place], [address] CA,Total 8.8 mg/dL Normal 8.5-10.1 [facility] Comment on above: Performed By: #### L 100.0500, L500.2500 ####[facility] [address] [place], [address] Chloride [Moles/Vol] 112 mmol/L High 98-107 [facility] Comment on above: Performed By: #### L 100.0500, L500.2500 ####[facility] [address] [place], [address] CO2 [Moles/Vol] 26.0 mmol/L Normal 21.0-32.0 [facility] Comment on above: Performed By: #### L 100.0500, L500.2500 ####[facility] [address] [place], [address] Creatinine [Mass/Vol] 0.79 mg/dL Normal 0.55-1.02 [facility] Comment on above: Result Comment: The validity of the calculated GFR GFRAA in patients over70 years has not been determined. Clinical correlation isessential. Performed By: #### L 100.0500, L500.2500 ####[facility] [address] [place], [address] ECRCL 64.05 ml/min Normal [facility] Comment on above: Performed By: #### L 100.0500, L500.2500 ####[facility] [address] [place], [address] EST GFR - AA 92 mL/min Normal >60 [facility] Comment on above: Result Comment: Afri can Cameroonian GFR Calc Performed By: #### L 100.0500, L500.2500 ####[facility] [address] [place], [address] GAP 6 Normal 5-15 [facility] Comment on above: Performed By: #### L 100.0500, L500.2500 ####[facility] [address] [place], [address] GFR/1.73 sq M.predicted among non-blacks MDRD (S/P/Bld) [Vol rate/Area] 76 mL/min/{1.73_m2} Normal >60 [facility] Comment on above: Result Comment: Non- GFR Calc Performed By: #### L 100.0500, L500.2500 ####[facility] [address] [place], [address] Glucose [Mass/Vol] 100 mg/dL Normal 74-106 [facility] Comment on above: Result Comment: Fast ing Glucose result from 100 to 125 mg/dLsuggests IMPAIRED HOMEOSTASIS per A.D.A. criteria. Performed By: #### L 100.0500, L500.2500 ####[facility] [address] [place], [address] Potassium [Moles/Vol] 3.8 mmol/L Normal 3.5-5.1 [facility] Comment on above: Performed By: #### L 100.0500, L500.2500 ####[facility] [address] [place], [address] Sodium [Moles/Vol] 144 mmol/L Normal 136-145 [facility] Comment on above: Performed By: #### L 100.0500, L500.2500 ####[facility] [address] [place], [address] Urea nitrogen [Mass/Vol] 7 mg/dL Normal 7-18 [facility] Comment on above: Performed By: #### L 100.0500, L500.2500 ####[facility] [address] [place], [address] Bedside Glucoseon 07-05-2024 FINGERSTICK GLU 155 mg/dL High 74-106 [facility] Comment on above: Result Comment: TORRES GEMENT OF PATIENT CARE PER NURSING PROTOCOL Performed By: #### L 501.080 ####[facility] [address] [place], [address] FINGERSTICK GLU 92 mg/dL Normal 74-106 [facility] Comment on above: Result Comment: TORRES GEMENT OF PATIENT CARE PER NURSING PROTOCOL Performed By: #### L 501.080 ####[facility] [address] [place], [address] CBC-Complete Blood Cnt No Di ffon 07-05-2024 Erythrocyte distribution width (RBC) [Ratio] 13.2 % Normal 11.6-14.6 [facility] Comment on above: Performed By: #### L 100.0500, L500.2500 ####[facility] [address] [place], [address] Hematocrit (Bld) [Volume fraction] 29.1 % Low 37-47 [facility] Comment on above: Performed By: #### L 100.0500, L500.2500 ####[facility] [address] [place], [address] Hemoglobin (Bld) [Mass/Vol] 9.4 g/dL Low 12.0-15.0 [facility] Comment on above: Performed By: #### L 100.0500, L500.2500 ####[facility] [address] [place], [address] MCH (RBC) [Entitic mass] 29.6 pg Normal 27.0-32.0 [facility] Comment on above: Performed By: #### L 100.0500, L500.2500 ####[facility] [address] [place], [address] MCHC (RBC) [Mass/Vol] 32.3 g/dL Normal 32-36 [facility] Comment on above: Performed By: #### L 100.0500, L500.2500 ####[facility] [address] [place], [address] MCV (RBC) [Entitic vol] 91.5 fL Normal 81-99 [facility] Comment on above: Performed By: #### L 100.0500, L500.2500 ####[facility] [address] [place], [address] Platelet mean volume (Bld) [Entitic vol] 10.2 fL Normal 6.2-12.0 [facility] Comment on above: Performed By: #### L 100.0500, L500.2500 ####[facility] [address] [place], [address] Platelets (Bld) [#/Vol] 205 10*3/uL Normal 150-450 [facility] Comment on above: Performed By: #### L 100.0500, L500.2500 ####[facility] [address] [place], [address] RBC (Bld) [#/Vol] 3.18 10*6/uL Low 4.2-5.4 [facility] Comment on above: Performed By: #### L 100.0500, L500.2500 ####[facility] [address] [place], [address] RDW SD 44.7 fl High 35.1-43.9 [facility] Comment on above: Performed By: #### L 100.0500, L500.2500 ####[facility] [address] [place], [address] WBC (Bld) [#/Vol] 4.8 10*3/uL Normal 4.4-11.0 [facility] Comment on above: Performed By: #### L 100.0500, L500.2500 ####[facility] [address] [place], [address] CTA Abd/Pelvis W/WO Contrast on 07-05-2024 CTA Abd/Pelvis W/WO Contrast Normal [facility] Colonoscopy Reporton 024 Colonoscopy Report Normal [facility] Discharge Instructionon 06-22 Discharge Instruction Normal [facility] MR/[id number] 07-05-2024 MR/POSTOPAN2 Normal [facility] Bedside Glucoseon 07-04-2024 FINGERSTICK GLU 147 mg/dL High 74-106 [facility] Comment on above: Result Comment: TORRES GEMENT OF PATIENT CARE PER NURSING PROTOCOL Performed By: #### L 501.080 ####[facility] [address] [place], [address] FINGERSTICK GLU 66 mg/dL Low 74-106 [facility] Comment on above: Result Comment: TORRES GEMENT OF PATIENT CARE PER NURSING PROTOCOL Performed By: #### L 501.080 ####[facility] [address] [place], [address] FINGERSTICK GLU 82 mg/dL Normal 74-106 [facility] Comment on above: Result Comment: TORRES GEMENT OF PATIENT CARE PER NURSING PROTOCOL Performed By: #### L 501.080 ####[facility] [address] [place], [address] FINGERSTICK GLU 98 mg/dL Normal 74-106 [facility] Comment on above: Result Comment: TORRES GEMENT OF PATIENT CARE PER NURSING PROTOCOL Performed By: #### L 501.080 ####[facility] [address] [place], [address] FINGERSTICK GLU 83 mg/dL Normal 74-106 [facility] Comment on above: Result Comment: TORRES GEMENT OF PATIENT CARE PER NURSING PROTOCOL Performed By: #### L 501.080 ####[facility] [address] [place], [address] FINGERSTICK GLU 76 mg/dL Normal 74-106 [facility] Comment on above: Result Comment: TORRES FRANKLIN OF PATIENT CARE PER NURSING PROTOCOL Performed By: #### L 501.080 ####[facility] [address] [place], [address] CBC W/Diff, Automatedon 06-22 Absolute Lymph 2.01 X10 3/uL Normal 0.83-4.51 [facility] Comment on above: Performed By: #### L 501.2300, L500.4050, L100.0100, L501.5200 ####[facility] [address] [place], [address] Absolute Neut 1.8 X10 3/uL Low 2.0-7.7 [facility] Comment on above: Performed By: #### L 501.2300, L500.4050, L100.0100, L501.5200 ####[facility] [address] [place], [address] Basophils/100 WBC (Bld) 0.7 % Normal 0-1 [facility] Comment on above: Performed By: #### L 501.2300, L500.4050, L100.0100, L501.5200 ####[facility] [address] [place], [address] Eosinophils/100 WBC (Bld) 3.8 % Normal 0-5 [facility] Comment on above: Performed By: #### L 501.2300, L500.4050, L100.0100, L501.5200 ####[facility] [address] [place], [address] Erythrocyte distribution width (RBC) [Ratio] 13.4 % Normal 11.6-14.6 [facility] Comment on above: Performed By: #### L 501.2300, L500.4050, L100.0100, L501.5200 ####[facility] [address] [place], [address] Hematocrit (Bld) [Volume fraction] 29.7 % Low 37-47 [facility] Comment on above: Performed By: #### L 501.2300, L500.4050, L100.0100, L501.5200 ####[facility] [address] [place], [address] Hemoglobin (Bld) [Mass/Vol] 9.5 g/dL Low 12.0-15.0 [facility] Comment on above: Performed By: #### L 501.2300, L500.4050, L100.0100, L501.5200 ####[facility] [address] [place], [address] IG% 0.700 Normal 0.0-0.9 [facility] Comment on above: Result Comment: IG% - Immature Granulocytes (promyelocytes, myelocytes andmetamyelocytes) > 1% indicates that a LEFT SHIFT is Present. Performed By: #### L 501.2300, L500.4050, L100.0100, L501.5200 ####[facility] [address] [place], [address] Lymphocytes/100 WBC (Bld) 45.3 % High 19-41 [facility] Comment on above: Performed By: #### L 501.2300, L500.4050, L100.0100, L501.5200 ####[facility] [address] [place], [address] MCH (RBC) [Entitic mass] 30.0 pg Normal 27.0-32.0 [facility] Comment on above: Performed By: #### L 501.2300, L500.4050, L100.0100, L501.5200 ####[facility] [address] [place], [address] MCHC (RBC) [Mass/Vol] 32.0 g/dL Normal 32-36 [facility] Comment on above: Performed By: #### L 501.2300, L500.4050, L100.0100, L501.5200 ####[facility] [address] [place], [address] MCV (RBC) [Entitic vol] 93.7 fL Normal 81-99 [facility] Comment on above: Performed By: #### L 501.2300, L500.4050, L100.0100, L501.5200 ####[facility] [address] [place], [address] Monocytes/100 WBC (Bld) 8.3 % Normal 0-10 [facility] Comment on above: Performed By: #### L 501.2300, L500.4050, L100.0100, L501.5200 ####[facility] [address] [place], [address] Neutrophils/100 WBC (Bld) 41.2 % Low 47-70 [facility] Comment on above: Performed By: #### L 501.2300, L500.4050, L100.0100, L501.5200 ####[facility] [address] [place], [address] Nucleated RBC (Bld) [#/Vol] 0 10*3/uL Normal 0-5 [facility] Comment on above: Performed By: #### L 501.2300, L500.4050, L100.0100, L501.5200 ####[facility] [address] [place], [address] Platelet mean volume (Bld) [Entitic vol] 9.7 fL Normal 6.2-12.0 [facility] Comment on above: Performed By: #### L 501.2300, L500.4050, L100.0100, L501.5200 ####[facility] [address] [place], [address] Platelets (Bld) [#/Vol] 181 10*3/uL Normal 150-450 [facility] Comment on above: Performed By: #### L 501.2300, L500.4050, L100.0100, L501.5200 ####[facility] [address] [place], [address] RBC (Bld) [#/Vol] 3.17 10*6/uL Low 4.2-5.4 [facility] Comment on above: Performed By: #### L 501.2300, L500.4050, L100.0100, L501.5200 ####[facility] [address] [place], [address] RDW SD 46.1 fl High 35.1-43.9 [facility] Comment on above: Performed By: #### L 501.2300, L500.4050, L100.0100, L501.5200 ####[facility] [address] [place], [address] WBC (Bld) [#/Vol] 4.4 10*3/uL Normal 4.4-11.0 [facility] Comment on above: Performed By: #### L 501.2300, L500.4050, L100.0100, L501.5200 ####[facility] [address] [place], [address] CD3 (initial)on 07-04-2024 CD3 (initial) Normal [facility] Comment on above: Performed By: #### P CD3 ####[facility] [address] [place], [address] Comprehensive Metabolic Prof ilon 07-04-2024 Albumin [Mass/Vol] 2.5 g/dL Low 3.2-5.0 [facility] Comment on above: Performed By: #### L 501.2300, L500.4050, L100.0100, L501.5200 ####[facility] [address] [place], [address] Albumin/Globulin [Mass ratio] 0.7 {ratio} Low 0.9-2.4 [facility] Comment on above: Performed By: #### L 501.2300, L500.4050, L100.0100, L501.5200 ####[facility] [address] [place], [address] ALK P 37 U/L Low 45-117 [facility] Comment on above: Performed By: #### L 501.2300, L500.4050, L100.0100, L501.5200 ####[facility] [address] [place], [address] ALT [Catalytic activity/Vol] 23 U/L Normal 13-56 [facility] Comment on above: Performed By: #### L 501.2300, L500.4050, L100.0100, L501.5200 ####[facility] [address] [place], [address] AST [Catalytic activity/Vol] 26 U/L Normal 15-37 [facility] Comment on above: Performed By: #### L 501.2300, L500.4050, L100.0100, L501.5200 ####[facility] [address] [place], [address] Bilirubin [Mass/Vol] 0.20 mg/dL Normal 0.20-1.00 [facility] Comment on above: Result Comment: For patients on eltrombopag therapy, use of Dimension [place] TBIL is not recommended. Performed By: #### L 501.2300, L500.4050, L100.0100, L501.5200 ####[facility] [address] [place], [address] BUN/CRE 11.0 RATIO Normal 10-20 [facility] Comment on above: Performed By: #### L 501.2300, L500.4050, L100.0100, L501.5200 ####[facility] [address] [place], [address] CA,Total 8.4 mg/dL Low 8.5-10.1 [facility] Comment on above: Performed By: #### L 501.2300, L500.4050, L100.0100, L501.5200 ####[facility] [address] [place], [address] Chloride [Moles/Vol] 112 mmol/L High 98-107 [facility] Comment on above: Performed By: #### L 501.2300, L500.4050, L100.0100, L501.5200 ####[facility] [address] [place], [address] CO2 [Moles/Vol] 25.0 mmol/L Normal 21.0-32.0 [facility] Comment on above: Performed By: #### L 501.2300, L500.4050, L100.0100, L501.5200 ####[facility] [address] [place], [address] Creatinine [Mass/Vol] 0.91 mg/dL Normal 0.55-1.02 [facility] Comment on above: Result Comment: The validity of the calculated GFR GFRAA in patients over70 years has not been determined. Clinical correlation isessential. Performed By: #### L 501.2300, L500.4050, L100.0100, L501.5200 ####[facility] [address] [place], [address] ECRCL 56.13 ml/min Normal [facility] Comment on above: Performed By: #### L 501.2300, L500.4050, L100.0100, L501.5200 ####[facility] [address] [place], [address] EST GFR - AA 78 mL/min Normal >60 [facility] Comment on above: Result Comment: Afri can Cameroonian GFR Calc Performed By: #### L 501.2300, L500.4050, L100.0100, L501.5200 ####[facility] [address] [place], [address] GAP 3 Low 5-15 [facility] Comment on above: Performed By: #### L 501.2300, L500.4050, L100.0100, L501.5200 ####[facility] [address] [place], [address] GFR/1.73 sq M.predicted among non-blacks MDRD (S/P/Bld) [Vol rate/Area] 65 mL/min/{1.73_m2} Normal >60 [facility] Comment on above: Result Comment: Non- GFR Calc Performed By: #### L 501.2300, L500.4050, L100.0100, L501.5200 ####[facility] [address] [place], [address] Globulin (S) [Mass/Vol] 3.4 g/dL Normal 2.2-4.2 [facility] Comment on above: Performed By: #### L 501.2300, L500.4050, L100.0100, L501.5200 ####[facility] [address] [place], [address] Glucose [Mass/Vol] 93 mg/dL Normal 74-106 [facility] Comment on above: Performed By: #### L 501.2300, L500.4050, L100.0100, L501.5200 ####[facility] [address] [place], [address] Potassium [Moles/Vol] 3.7 mmol/L Normal 3.5-5.1 [facility] Comment on above: Performed By: #### L 501.2300, L500.4050, L100.0100, L501.5200 ####[facility] [address] [place], [address] Sodium [Moles/Vol] 140 mmol/L Normal 136-145 [facility] Comment on above: Performed By: #### L 501.2300, L500.4050, L100.0100, L501.5200 ####[facility] [address] [place], [address] T PROT 5.9 g/dL Low 6.4-8.2 [facility] Comment on above: Performed By: #### L 501.2300, L500.4050, L100.0100, L501.5200 ####[facility] [address] [place], [address] Urea nitrogen [Mass/Vol] 10 mg/dL Normal 7-18 [facility] Comment on above: Performed By: #### L 501.2300, L500.4050, L100.0100, L501.5200 ####[facility] [address] [place], [address] HH, Hemoglobin AND Hematocri ton 07-04-2024 Hematocrit (Bld) [Volume fraction] 30.3 % Low 37-47 [facility] Comment on above: Performed By: #### L 100.0600 ####[facility] [address] [place], [address] Hemoglobin (Bld) [Mass/Vol] 9.7 g/dL Low 12.0-15.0 [facility] Comment on above: Performed By: #### L 100.0600 ####[facility] [address] [place], [address] HCT Normal 37-47 [facility] Comment on above: Result Comment: OVER LAPPING- CBCD ORDERED FOR MORNING RUN Performed By: #### L 100.0600 ####[facility] [address] [place], [address] HGB Normal 12.0-15.0 [facility] Comment on above: Result Comment: OVER LAPPING- CBCD ORDERED FOR MORNING RUN Performed By: #### L 100.0600 ####[facility] [address] [place], [address] Hematocrit (Bld) [Volume fraction] 30.4 % Low 37-47 [facility] Comment on above: Performed By: #### L 100.0600 ####[facility] [address] [place], [address] Hemoglobin (Bld) [Mass/Vol] 9.6 g/dL Low 12.0-15.0 [facility] Comment on above: Performed By: #### L 100.0600 ####[facility] [address] [place], [address] LDHon 07-04-2024 LDH 232 U/L Normal 84-246 [facility] Comment on above: Performed By: #### L 504.2610, L4500.0100 ####[facility] [address] [place], [address] Lactic Acidon 07-04-2024 Lactate [Moles/Vol] 0.6 mmol/L Normal 0.4-1.9 [facility] Comment on above: Order Comment: Y Performed By: #### L 503.6005 ####[facility] [address] [place], [address] MR/CON.PCM.GIon 07-04-2024 MR/CON.PCM.GI Normal [facility] MR/POSTOP.ANEon 07-04-2024 MR/POSTOP.ANE Normal [facility] Magnesiumon 07-04-2024 Magnesium [Mass/Vol] 1.9 mg/dL Normal 1.6-2.6 [facility] Comment on above: Performed By: #### L 501.2300, L500.4050, L100.0100, L501.5200 ####[facility] [address] [place], [address] Phosphoruson 07-04-2024 Phosphate [Mass/Vol] 3.4 mg/dL Normal 2.5-4.9 [facility] Comment on above: Performed By: #### L 501.2300, L500.4050, L100.0100, L501.5200 ####[facility] [address] [place], [address] Surgery Specimen Level Macrina 07-04-2024 Surgery Specimen Level IV Normal [facility] Comment on above: Performed By: #### P SUIV ####[facility] [address] [place], [address] Acute Abdomen Inc Cheston Acute Abdomen Inc Chest Normal [facility] CBC W/Diff, Automatedon 06-22 Absolute Lymph 1.44 X10 3/uL Normal 0.83-4.51 [facility] Comment on above: Performed By: #### L 100.0100, L300.4310, L504.2610, L501.6710, L500.4050, L101.9900, L300.3900 ####[facility] [address] [place], [address] Absolute Neut 3.1 X10 3/uL Normal 2.0-7.7 [facility] Comment on above: Performed By: #### L 100.0100, L300.4310, L504.2610, L501.6710, L500.4050, L101.9900, L300.3900 ####[facility] [address] [place], [address] Basophils/100 WBC (Bld) 0.4 % Normal 0-1 [facility] Comment on above: Performed By: #### L 100.0100, L300.4310, L504.2610, L501.6710, L500.4050, L101.9900, L300.3900 ####[facility] [address] [place], [address] Eosinophils/100 WBC (Bld) 1.8 % Normal 0-5 [facility] Comment on above: Performed By: #### L 100.0100, L300.4310, L504.2610, L501.6710, L500.4050, L101.9900, L300.3900 ####[facility] [address] [place], [address] Erythrocyte distribution width (RBC) [Ratio] 13.4 % Normal 11.6-14.6 [facility] Comment on above: Performed By: #### L 100.0100, L300.4310, L504.2610, L501.6710, L500.4050, L101.9900, L300.3900 ####[facility] [address] [place], [address] Hematocrit (Bld) [Volume fraction] 33.4 % Low 37-47 [facility] Comment on above: Performed By: #### L 100.0100, L300.4310, L504.2610, L501.6710, L500.4050, L101.9900, L300.3900 ####[facility] [address] [place], [address] Hemoglobin (Bld) [Mass/Vol] 10.9 g/dL Low 12.0-15.0 [facility] Comment on above: Performed By: #### L 100.0100, L300.4310, L504.2610, L501.6710, L500.4050, L101.9900, L300.3900 ####[facility] [address] [place], [address] IG% 0.600 Normal 0.0-0.9 [facility] Comment on above: Result Comment: IG% - Immature Granulocytes (promyelocytes, myelocytes andmetamyelocytes) > 1% indicates that a LEFT SHIFT is Present. Performed By: #### L 100.0100, L300.4310, L504.2610, L501.6710, L500.4050, L101.9900, L300.3900 ####[facility] [address] [place], [address] Lymphocytes/100 WBC (Bld) 28.6 % Normal 19-41 [facility] Comment on above: Performed By: #### L 100.0100, L300.4310, L504.2610, L501.6710, L500.4050, L101.9900, L300.3900 ####[facility] [address] [place], [address] MCH (RBC) [Entitic mass] 30.1 pg Normal 27.0-32.0 [facility] Comment on above: Performed By: #### L 100.0100, L300.4310, L504.2610, L501.6710, L500.4050, L101.9900, L300.3900 ####[facility] [address] [place], [address] MCHC (RBC) [Mass/Vol] 32.6 g/dL Normal 32-36 [facility] Comment on above: Performed By: #### L 100.0100, L300.4310, L504.2610, L501.6710, L500.4050, L101.9900, L300.3900 ####[facility] [address] [place], [address] MCV (RBC) [Entitic vol] 92.3 fL Normal 81-99 [facility] Comment on above: Performed By: #### L 100.0100, L300.4310, L504.2610, L501.6710, L500.4050, L101.9900, L300.3900 ####[facility] [address] [place], [address] Monocytes/100 WBC (Bld) 6.7 % Normal 0-10 [facility] Comment on above: Performed By: #### L 100.0100, L300.4310, L504.2610, L501.6710, L500.4050, L101.9900, L300.3900 ####[facility] [address] [place], [address] Neutrophils/100 WBC (Bld) 61.9 % Normal 47-70 [facility] Comment on above: Performed By: #### L 100.0100, L300.4310, L504.2610, L501.6710, L500.4050, L101.9900, L300.3900 ####[facility] [address] [place], [address] Nucleated RBC (Bld) [#/Vol] 0 10*3/uL Normal 0-5 [facility] Comment on above: Performed By: #### L 100.0100, L300.4310, L504.2610, L501.6710, L500.4050, L101.9900, L300.3900 ####[facility] [address] [place], [address] Platelet mean volume (Bld) [Entitic vol] 10.8 fL Normal 6.2-12.0 [facility] Comment on above: Performed By: #### L 100.0100, L300.4310, L504.2610, L501.6710, L500.4050, L101.9900, L300.3900 ####[facility] [address] [place], [address] Platelets (Bld) [#/Vol] 191 10*3/uL Normal 150-450 [facility] Comment on above: Performed By: #### L 100.0100, L300.4310, L504.2610, L501.6710, L500.4050, L101.9900, L300.3900 ####[facility] [address] [place], [address] RBC (Bld) [#/Vol] 3.62 10*6/uL Low 4.2-5.4 [facility] Comment on above: Performed By: #### L 100.0100, L300.4310, L504.2610, L501.6710, L500.4050, L101.9900, L300.3900 ####[facility] [address] [place], [address] RDW SD 45.6 fl High 35.1-43.9 [facility] Comment on above: Performed By: #### L 100.0100, L300.4310, L504.2610, L501.6710, L500.4050, L101.9900, L300.3900 ####[facility] [address] [place], [address] WBC (Bld) [#/Vol] 5.0 10*3/uL Normal 4.4-11.0 [facility] Comment on above: Performed By: #### L 100.0100, L300.4310, L504.2610, L501.6710, L500.4050, L101.9900, L300.3900 ####[facility] [address] [place], [address] CRPon 07-03-2024 C-REACTIVE PROT 90.10 mg/L High 0.0-3.0 [facility] Comment on above: Order Comment: [id number] Result Comment: C-Re active Protein (CRP) provides useful information for thediagnosis, therapy and monitoring of inflammatory processesand associated diseases. For the evaluation of Relative Riskfor Cardiovascular Disease, a High Sensitivity CRP (HSCRP)should be ordered. Performed By: #### L 100.0100, L300.4310, L504.2610, L501.6710, L500.4050, L101.9900, L300.3900 ####[facility] [address] [place], [address] Comprehensive Metabolic Prof ilon 07-03-2024 Albumin [Mass/Vol] 3.1 g/dL Low 3.2-5.0 [facility] Comment on above: Order Comment: [id number] 81 Performed By: #### L 100.0100, L300.4310, L504.2610, L501.6710, L500.4050, L101.9900, L300.3900 ####[facility] [address] [place], [address] Albumin/Globulin [Mass ratio] 0.7 {ratio} Low 0.9-2.4 [facility] Comment on above: Order Comment: [id number] 81 Performed By: #### L 100.0100, L300.4310, L504.2610, L501.6710, L500.4050, L101.9900, L300.3900 ####[facility] [address] [place], [address] ALK P 50 U/L Normal 45-117 [facility] Comment on above: Order Comment: [id number] 81 Performed By: #### L 100.0100, L300.4310, L504.2610, L501.6710, L500.4050, L101.9900, L300.3900 ####[facility] [address] [place], [address] ALT [Catalytic activity/Vol] 26 U/L Normal 13-56 [facility] Comment on above: Order Comment: [id number] 81 Performed By: #### L 100.0100, L300.4310, L504.2610, L501.6710, L500.4050, L101.9900, L300.3900 ####[facility] [address] [place], [address] AST [Catalytic activity/Vol] 28 U/L Normal 15-37 [facility] Comment on above: Order Comment: [id number] 81 Performed By: #### L 100.0100, L300.4310, L504.2610, L501.6710, L500.4050, L101.9900, L300.3900 ####[facility] [address] [place], [address] Bilirubin [Mass/Vol] 0.40 mg/dL Normal 0.20-1.00 [facility] Comment on above: Order Comment: [id number] 81 Result Comment: For patients on eltrombopag therapy, use of Dimension [place] TBIL is not recommended. Performed By: #### L 100.0100, L300.4310, L504.2610, L501.6710, L500.4050, L101.9900, L300.3900 ####[facility] [address] [place], [address] BUN/CRE 13.2 RATIO Normal 10-20 [facility] Comment on above: Order Comment: [id number] 81 Performed By: #### L 100.0100, L300.4310, L504.2610, L501.6710, L500.4050, L101.9900, L300.3900 ####[facility] [address] [place], [address] CA,Total 9.0 mg/dL Normal 8.5-10.1 [facility] Comment on above: Order Comment: [id number] 81 Performed By: #### L 100.0100, L300.4310, L504.2610, L501.6710, L500.4050, L101.9900, L300.3900 ####[facility] [address] [place], [address] Chloride [Moles/Vol] 109 mmol/L High 98-107 [facility] Comment on above: Order Comment: [id number] 81 Performed By: #### L 100.0100, L300.4310, L504.2610, L501.6710, L500.4050, L101.9900, L300.3900 ####[facility] [address] [place], [address] CO2 [Moles/Vol] 24.0 mmol/L Normal 21.0-32.0 [facility] Comment on above: Order Comment: [id number] 81 Performed By: #### L 100.0100, L300.4310, L504.2610, L501.6710, L500.4050, L101.9900, L300.3900 ####[facility] [address] [place], [address] Creatinine [Mass/Vol] 1.29 mg/dL High 0.55-1.02 [facility] Comment on above: Order Comment: [id number] Result Comment: The validity of the calculated GFR GFRAA in patients over70 years has not been determined. Clinical correlation isessential. Performed By: #### L 100.0100, L300.4310, L504.2610, L501.6710, L500.4050, L101.9900, L300.3900 ####[facility] [address] [place], [address] EST GFR - AA 52 mL/min Low >60 [facility] Comment on above: Order Comment: [id number] 60 Result Comment: Afri can Cameroonian GFR Calc Performed By: #### L 100.0100, L300.4310, L504.2610, L501.6710, L500.4050, L101.9900, L300.3900 ####[facility] [address] [place], [address] GAP 7 Normal 5-15 [facility] Comment on above: Order Comment: [id number] 81 Performed By: #### L 100.0100, L300.4310, L504.2610, L501.6710, L500.4050, L101.9900, L300.3900 ####[facility] [address] [place], [address] GFR/1.73 sq M.predicted among non-blacks MDRD (S/P/Bld) [Vol rate/Area] 43 mL/min/{1.73_m2} Low >60 [facility] Comment on above: Order Comment: [id number] 81 Result Comment: Non- GFR Calc Performed By: #### L 100.0100, L300.4310, L504.2610, L501.6710, L500.4050, L101.9900, L300.3900 ####[facility] [address] [place], [address] Globulin (S) [Mass/Vol] 4.3 g/dL High 2.2-4.2 [facility] Comment on above: Order Comment: [id number] 81 Performed By: #### L 100.0100, L300.4310, L504.2610, L501.6710, L500.4050, L101.9900, L300.3900 ####[facility] [address] [place], [address] Glucose [Mass/Vol] 166 mg/dL High 74-106 [facility] Comment on above: Order Comment: [id number] 81 Result Comment: Fast ing Glucose result greater than or equal to 126 mg/dLsuggests DIABETES MELLITUS per A.D.A. criteria. Performed By: #### L 100.0100, L300.4310, L504.2610, L501.6710, L500.4050, L101.9900, L300.3900 ####[facility] [address] [place], [place], [phone]) Potassium [Moles/Vol] 3.8 mmol/L Normal 3.5-5.1 [facility] Comment on above: Order Comment: [id number] 81 Performed By: #### L 100.0100, L300.4310, L504.2610, L501.6710, L500.4050, L101.9900, L300.3900 ####[facility] [address] [place], [address] Sodium [Moles/Vol] 140 mmol/L Normal 136-145 [facility] Comment on above: Order Comment: [id number] 81 Performed By: #### L 100.0100, L300.4310, L504.2610, L501.6710, L500.4050, L101.9900, L300.3900 ####[facility] [address] [place], [address] T PROT 7.4 g/dL Normal 6.4-8.2 [facility] Comment on above: Order Comment: [id number] 81 Performed By: #### L 100.0100, L300.4310, L504.2610, L501.6710, L500.4050, L101.9900, L300.3900 ####[facility] [address] [place], [address] Urea nitrogen [Mass/Vol] 17 mg/dL Normal 7-18 [facility] Comment on above: Order Comment: [id number] 81 Performed By: #### L 100.0100, L300.4310, L504.2610, L501.6710, L500.4050, L101.9900, L300.3900 ####[facility] [address] [place], [address] ALB Normal 3.2-5.0 [facility] Comment on above: Order Comment: [id number] 8 Result Comment: DUPL CIATE Performed By: #### L 300.3900, L3410.2400, L2100.0000, L801.1541, L3100.5440, L3100.3425, L3300.1200, L500.4050 ####[facility] [address] [place], [address] ALK P Normal 45-117 [facility] Comment on above: Order Comment: [id number] 8 Result Comment: DUPL CIATE Performed By: #### L 300.3900, L3410.2400, L2100.0000, L801.1541, L3100.5440, L3100.3425, L3300.1200, L500.4050 ####[facility] [address] [place], [address] ALT Normal 13-56 [facility] Comment on above: Order Comment: 13724 8 Result Comment: DUPL CIATE Performed By: #### L 300.3900, L3410.2400, L2100.0000, L801.1541, L3100.5440, L3100.3425, L3300.1200, L500.4050 ####[facility] [address] [place], [address] AST Normal 15-37 [facility] Comment on above: Order Comment: [id number] Result Comment: DUPL CIATE Performed By: #### L 300.3900, L3410.2400, L2100.0000, L801.1541, L3100.5440, L3100.3425, L3300.1200, L500.4050 ####[facility] [address] [place], [address] BUN Normal 7-18 [facility] Comment on above: Order Comment: [id number] Result Comment: DUPL CIATE Performed By: #### L 300.3900, L3410.2400, L2100.0000, L801.1541, L3100.5440, L3100.3425, L3300.1200, L500.4050 ####[facility] [address] [place], [place], [id number] BUN/CRE Normal 10-20 [facility] Comment on above: Order Comment: [id number] Result Comment: DUPL CIATE Performed By: #### L 300.3900, L3410.2400, L2100.0000, L801.1541, L3100.5440, L3100.3425, L3300.1200, L500.4050 ####[facility] [address] [place], [address] CA,Total Normal 8.5-10.1 [facility] Comment on above: Order Comment: [id number] Result Comment: DUPL CIATE Performed By: #### L 300.3900, L3410.2400, L2100.0000, L801.1541, L3100.5440, L3100.3425, L3300.1200, L500.4050 ####[facility] [address] [place], [address] CL Normal 98-107 [facility] Comment on above: Order Comment: [id number] Result Comment: DUPL CIATE Performed By: #### L 300.3900, L3410.2400, L2100.0000, L801.1541, L3100.5440, L3100.3425, L3300.1200, L500.4050 ####[facility] [address] [place], [address] CO2 Normal 21.0-32.0 [facility] Comment on above: Order Comment: [id number] Result Comment: DUPL CIATE Performed By: #### L 300.3900, L3410.2400, L2100.0000, L801.1541, L3100.5440, L3100.3425, L3300.1200, L500.4050 ####[facility] [address] [place], [address] CREAT,SERUM Normal 0.55-1.02 [facility] Comment on above: Order Comment: [id number] Result Comment: DUPL CIATE Performed By: #### L 300.3900, L3410.2400, L2100.0000, L801.1541, L3100.5440, L3100.3425, L3300.1200, L500.4050 ####[facility] [address] [place], [address] EST GFR Normal >60 [facility] Comment on above: Order Comment: [id number] Result Comment: DUPL CIATE Performed By: #### L 300.3900, L3410.2400, L2100.0000, L801.1541, L3100.5440, L3100.3425, L3300.1200, L500.4050 ####[facility] [address] [place], [address] EST GFR - AA Normal >60 [facility] Comment on above: Order Comment: [id number] Result Comment: DUPL CIATE Performed By: #### L 300.3900, L3410.2400, L2100.0000, L801.1541, L3100.5440, L3100.3425, L3300.1200, L500.4050 ####[facility] [address] [place], [address] GAP Normal 5-15 [facility] Comment on above: Order Comment: [id number] Result Comment: DUPL CIATE Performed By: #### L 300.3900, L3410.2400, L2100.0000, L801.1541, L3100.5440, L3100.3425, L3300.1200, L500.4050 ####[facility] [address] [place], [address] GLU Normal 74-106 [facility] Comment on above: Order Comment: [id number] Result Comment: DUPL CIATE Performed By: #### L 300.3900, L3410.2400, L2100.0000, L801.1541, L3100.5440, L3100.3425, L3300.1200, L500.4050 ####[facility] [address] [place], [address] Potassium Normal 3.5-5.1 [facility] Comment on above: Order Comment: [id number] Result Comment: DUPL CIATE Performed By: #### L 300.3900, L3410.2400, L2100.0000, L801.1541, L3100.5440, L3100.3425, L3300.1200, L500.4050 ####[facility] [address] [place], [address] T BILI Normal 0.20-1.00 [facility] Comment on above: Order Comment: [id number] Result Comment: DUPL CIATE Performed By: #### L 300.3900, L3410.2400, L2100.0000, L801.1541, L3100.5440, L3100.3425, L3300.1200, L500.4050 ####[facility] [address] [place], [address] T PROT Normal 6.4-8.2 [facility] Comment on above: Order Comment: [id number] Result Comment: DUPL CIATE Performed By: #### L 300.3900, L3410.2400, L2100.0000, L801.1541, L3100.5440, L3100.3425, L3300.1200, L500.4050 ####[facility] [address] [place], [address] Comprehensive Metabolic Profil Normal 136-145 [facility] Comment on above: Order Comment: [id number] Result Comment: DUPL CIATE Performed By: #### L 300.3900, L3410.2400, L2100.0000, L801.1541, L3100.5440, L3100.3425, L3300.1200, L500.4050 ####[facility] [address] [place], [address] Emergency Department Summary on 07-03-2024 Emergency Department Summary Normal [facility] Erythrocyte Sed Rateon 07-03 SED RATE 49 mm/hr High 0-30 [facility] Comment on above: Performed By: #### L 100.0100, L300.4310, L504.2610, L501.6710, L500.4050, L101.9900, L300.3900 ####[facility] [address] [place], [address] H AND P Exam - Hospitaliston 07-03-2024 H&P Exam - Hospitalist Normal [facility] HH, Hemoglobin AND Hematocri ton 07-03-2024 Hematocrit (Bld) [Volume fraction] 30.8 % Low 37-47 [facility] Comment on above: Performed By: #### L 100.0600 ####[facility] [address] [place], [address] Hemoglobin (Bld) [Mass/Vol] 9.8 g/dL Low 12.0-15.0 [facility] Comment on above: Performed By: #### L 100.0600 ####[facility] [address] [place], [address] LDHon 07-03-2024 LDH 199 U/L Normal 84-246 [facility] Comment on above: Order Comment: [id number] Performed By: #### L 100.0100, L300.4310, L504.2610, L501.6710, L500.4050, L101.9900, L300.3900 ####[facility] [address] [place], [address] Partial Thromboplast Timeon 07-03-2024 aPTT Coag (Bld) [Time] 28.2 s Normal 24.1-36.2 [facility] Comment on above: Performed By: #### L 100.0100, L300.4310, L504.2610, L501.6710, L500.4050, L101.9900, L300.3900 ####[facility] [address] [place], [address] Prothrombin Time w/INRon INR Coag (PPP) [Relative time] 1.2 {INR} Normal [facility] Comment on above: Performed By: #### L 100.0100, L300.4310, L504.2610, L501.6710, L500.4050, L101.9900, L300.3900 ####[facility] [address] [place], [address] PT Coag (PPP) [Time] 15.0 s High 11.7-14.9 [facility] Comment on above: Performed By: #### L 100.0100, L300.4310, L504.2610, L501.6710, L500.4050, L101.9900, L300.3900 ####[facility] [address] [place], [address] INR Normal [facility] Comment on above: Result Comment: DUPL ICATE Performed By: #### L 300.3900, L3410.2400, L2100.0000, L801.1541, L3100.5440, L3100.3425, L3300.1200, L500.4050 ####[facility] [address] [place], [address] PROTIME Normal 11.7-14.9 [facility] Comment on above: Result Comment: DUPL ICATE Performed By: #### L 300.3900, L3410.2400, L2100.0000, L801.1541, L3100.5440, L3100.3425, L3300.1200, L500.4050 ####[facility] [address] [place], [address] Stool Occult Blood iFOBon STOB Positive Normal [facility] Comment on above: Performed By: #### M 100.7900 ####[facility] [address] [place], [address] 36on 06-28-2024 36 Name of caller: Beatrice lobo Contact phone number: [phone] Relationship to Patient: Spouse Provider: Practice: [facility] Chief Complaint/Reason for Call: Patients Spouse called in to cancel appointment today at 10 am for Lab work. Spouse stated he just got home with the Patient from the Emergency Room. Spouse stated the Patient had some labs done in the [facility] and wanted to inform the doctor. Please advise. Best time of day caller can be reached: N/A Patient advised that office/PCP has 24-48 business hours to return their call: N/A Normal [facility] LABORATORYOrdered By: Cheli Kuo on 05-19-2024 Cholesterol [...] 05-19-2024 Cholesterol [Mass/Vol] 136 mg/dL Normal 0-200 [facility] ([place]) Comment on above: Result Comment: Chol esterol Reference Interval: Less than 200 Desirable 200-239 Borderline high risk 240 and above High risk Performed By: #### C RE, GFR #### [address] [address] Cholesterol in HDL [Mass/Vol] 42 mg/dL Normal 40-60 [facility] ([place]) Comment on above: Performed By: #### C RE, GFR #### [address] [address] Cholesterol in LDL [Mass/Vol] 69 mg/dL Normal 0-130 [facility] ([place]) Comment on above: Performed By: #### C RE, GFR #### [address] [address] Triglyceride [Mass/Vol] 123 mg/dL Normal 0-150 [facility] ([place]) Comment on above: Result Comment: Trig lyceride Reference Interval: Less than 150 Normal 150-199 Borderline high risk 200-499 High risk 500 or higher Very high risk Performed By: #### C RE, GFR #### [address] [address] PBNPon 05-19-2024 Natriuretic peptide B (Bld) [Mass/Vol] 578 pg/mL High 0-125 [facility] ([place]) Comment on above: Result Comment: NT-p roBNP results of less than 300 pg/mL effectively rules out acute congestive heart failure with 99% negative predictive value. Performed By: #### C RE, GFR #### [address] [address] [address] ANGIOGRAPHY ABD AORTA + I LIOFEMORALon [...] flow FINDINGS: Note: Study is submitted to [facility] for interpretation on April 24, 2024, 1:27 [...] 04/24/2024 1:31:15 PM Ordering Provider: ADRIENNE BYERS [facility] ([place]) .GFRon 04-07-2024 GFR 51 ml/min/1.73sqm [facility] ([place]) Comment on above: Result Comment: GFR Population [...] Performed By: #### C RE, GFR #### [address] [address] GFR Non- 42 ml/min/1.73sqm Normal [facility] ([place]) Comment on above: Result Comment: GFR Population [...] Performed By: #### C RE, GFR #### [address] [address] CREon 04-07-2024 Creatinine [Mass/Vol] 1.25 mg/dL High 0.55-1.02 [facility] ([place]) Comment on above: Performed By: #### C RE, GFR #### [address] [address] Absolute lymphocyte countOrd ered By: Alonso Marte on 03-15-2024 Lymphocytes Auto (Unsp spec) [#/Vol] 3.07 10*3/uL 0.83-4.51 [facility] Automated lymphocyte count a s percentage of total leukocytesOrdered By: Alonso Marte on 03-15-2024 Lymphocytes/100 WBC Auto (Unsp spec) 51.0 % 19-41 [facility] Basophil percentageOrdered B y: Alonso Marte on 03-15-2024 Basophils/100 WBC (Bld) 0.7 % 0-1 [facility] Chloride [Moles/Vol] 107 mmol/L 98-107 [facility] Eosinophils/100 WBC (Bld) 1.0 % 0-5 [facility] Glucose [Mass/Vol] 122 mg/dL 74-106 [facility] Comment on above: Fasting Glucose resu lt from 100 to 125 mg/dL suggests IMPAIRED HOMEOSTASIS per A.D.A. criteria. Hemoglobin (Bld) [Mass/Vol] 11.3 g/dL 12.0-15.0 [facility] Monocytes/100 WBC (Bld) 8.8 % 0-10 [facility] Neutrophils (Bld) [#/Vol] 2.3 10*3/uL 2.0-7.7 [facility] Neutrophils/100 WBC (Bld) 38.2 % 47-70 [facility] Potassium [Moles/Vol] 4.5 mmol/L 3.5-5.1 [facility] Sodium [Moles/Vol] 139 mmol/L 136-145 [facility] WBC (Bld) [#/Vol] 6.0 10*3/uL 4.4-11.0 [facility] Determination of erythrocyte mean corpuscular volume (MCV)Ordered By: Alonso Marte on 03-15-2024 MCV (RBC) [Entitic vol] 96.5 fL 81-99 [facility] Erythrocyte distribution wid th ratioOrdered By: Alonso Marte 03-15-2024 Erythrocyte distribution width (RBC) [Ratio] 14.6 % 11.6-14.6 [facility] Erythrocyte distribution wid th standard deviationOrdered By: Alonso Marte 03-15-2024 Erythrocyte distribution width (RBC) [Entitic vol] 52.5 fL 35.1-43.9 [facility] Hematocrit Auto (Bld) [Volum e fraction]Ordered By: Alonso Marte 03-15-2024 Hematocrit (Bld) [Volume fraction] 35.9 % 37-47 [facility] Immature granulocytes/100 WB C Auto (Bld)Ordered By: Alonso Marte 03-15-2024 Immature granulocytes/100 WBC (Bld) 0.300 % 0.0-0.9 [facility] Comment on above: IG% - Immature Granu locytes (promyelocytes, myelocytes and metamyelocytes) > 1% indicates that a LEFT SHIFT is Present. Laboratory - Chemistry and C hemistry - challengeOrdered By: Alonso Marte on 03-15-2024 CO2 [Moles/Vol] 28.0 mmol/L 21.0-32.0 [facility] Urea nitrogen/Creatinine [Mass ratio] 23.8 mg/mg 10-20 [facility] Laboratory - Hematology and Cell countsOrdered By: Alonso Marte on 03-15-2024 MCH (RBC) [Entitic mass] 30.4 pg 27.0-32.0 [facility] MCHC (RBC) [Mass/Vol] 31.5 g/dL 32-36 [facility] Nucleated RBC/100 WBC (Bld) [Ratio] 0 % 0-5 [facility] Platelet mean volume (Bld) [Entitic vol] 11.2 fL 6.2-12.0 [facility] Platelets (Bld) [#/Vol] 206 10*3/uL 150-450 [facility] No Panel InformationOrdered By: Alonso Marte on 03-15-2024 Estimated Creatinine Clearance Calc 45.89 ml/min [facility] Estimated GFR (MDRD) Amer 66 mL/min >60 [facility] Comment on above: GFR Calc Estimated GFR (MDRD) Non-Af Amer 55 mL/min >60 [facility] Comment on above: Non- GFR Calc RBC Auto (Bld) [#/Vol]Ordere d By: Alonso Marte on 03-15-2024 RBC (Bld) [#/Vol] 3.72 10*6/uL 4.2-5.4 [facility] Serum or plasma calcium loco urement (mass/volume)Ordered By: Alonso Marte on 03-15-2024 Calcium [Mass/Vol] 9.3 mg/dL 8.5-10.1 [facility] Serum or plasma creatinine m easurement (mass/volume)Ordered By: Alonso Marte on 03-15-2024 Creatinine [Mass/Vol] 1.05 mg/dL 0.55-1.02 [facility] Comment on above: The validity of the calculated GFR & GFRAA in patients over 70 years has not been determined. Clinical correlation is essential. Serum or plasma urea nitroge n measurement (mass/volume)Ordered By: Alonso Marte on 03-15-2024 Urea nitrogen [Mass/Vol] 25 mg/dL 7-18 [facility] Thin prep Papanicolaou smear with manual screeningOrdered By: Alonso Marte on 03-15-2024 Thin prep Papanicolaou smear with manual screening 116 mg/dL 74-106 [facility] Comment on above: MANAGEMENT OF PATIEN T CARE PER NURSING PROTOCOL Thin prep Papanicolaou smear with manual screening 4 5-15 [facility] No Panel InformationOrdered By: Alonso Marte on 03-02-2024 Vitamin D 25-Hydroxy 54.2 ng/mL [facility] Comment on above: Vitamin D 25(OH) Sta tus Range Deficiency <20 ng/mL (50nmol/L) Insufficiency 20 - 30 ng/mL (50 - 75 nmol/L) Sufficiency 30 - 100 ng/mL (75 - 250 nmol/L) Toxicity >100 ng/mL (>250 nmol/L) Absolute lymphocyte countOrd ered By: Heike Horta on 02-29-2024 Lymphocytes Auto (Unsp spec) [#/Vol] 1.82 10*3/uL 0.83-4.51 [facility] Automated lymphocyte count a s percentage of total leukocytesOrdered By: Heike Horta on 02-29-2024 Lymphocytes/100 WBC Auto (Unsp spec) 43.5 % 19-41 [facility] Basophil percentageOrdered B y: Heike Horta on 02-29-2024 Basophils/100 WBC (Bld) 0.5 % 0-1 [facility] Chloride [Moles/Vol] 115 mmol/L 98-107 [facility] Eosinophils/100 WBC (Bld) 3.3 % 0-5 [facility] Glucose [Mass/Vol] 119 mg/dL 74-106 [facility] Comment on above: Fasting Glucose resu lt from 100 to 125 mg/dL suggests IMPAIRED HOMEOSTASIS per A.D.A. criteria. Hemoglobin (Bld) [Mass/Vol] 8.8 g/dL 12.0-15.0 [facility] Monocytes/100 WBC (Bld) 10.0 % 0-10 [facility] Neutrophils (Bld) [#/Vol] 1.8 10*3/uL 2.0-7.7 [facility] Neutrophils/100 WBC (Bld) 42.5 % 47-70 [facility] Potassium [Moles/Vol] 3.3 mmol/L 3.5-5.1 [facility] Sodium [Moles/Vol] 144 mmol/L 136-145 [facility] WBC (Bld) [#/Vol] 4.2 10*3/uL 4.4-11.0 [facility] Blood manual differential co mment interpretation (narrative result)Ordered By: Heike Horta on 02-29-2024 Manual differential comment Jake (Bld) [Interp] SCANNED [facility] Determination of erythrocyte mean corpuscular volume (MCV)Ordered By: Heike Horta on 02-29-2024 MCV (RBC) [Entitic vol] 92.3 fL 81-99 [facility] Erythrocyte distribution wid th ratioOrdered By: Heike Horta on 02-29-2024 Erythrocyte distribution width (RBC) [Ratio] 14.3 % 11.6-14.6 [facility] Erythrocyte distribution wid th standard deviationOrdered By: Heike Horta on 02-29-2024 Erythrocyte distribution width (RBC) [Entitic vol] 48.5 fL 35.1-43.9 [facility] Hematocrit Auto (Bld) [Volum e fraction]Ordered By: Heike Horta on 02-29-2024 Hematocrit (Bld) [Volume fraction] 27.4 % 37-47 [facility] Immature granulocytes/100 WB C Auto (Bld)Ordered By: Heike Horta on 02-29-2024 Immature granulocytes/100 WBC (Bld) 0.200 % 0.0-0.9 [facility] Comment on above: IG% - Immature Granu locytes (promyelocytes, myelocytes and metamyelocytes) > 1% indicates that a LEFT SHIFT is Present. Laboratory - Chemistry and C hemistry - challengeOrdered By: Heike Horta on 02-29-2024 CO2 [Moles/Vol] 23.0 mmol/L 21.0-32.0 [facility] Urea nitrogen/Creatinine [Mass ratio] 5.5 mg/mg 10-20 [facility] Laboratory - Chemistry and C hemistry - challengeOrdered By: Ganesh Kiran on 02-29-2024 Magnesium [Mass/Vol] 1.6 mg/dL 1.6-2.6 [facility] Laboratory - Hematology and Cell countsOrdered By: Heike Horta on 02-29-2024 MCH (RBC) [Entitic mass] 29.6 pg 27.0-32.0 [facility] MCHC (RBC) [Mass/Vol] 32.1 g/dL 32-36 [facility] Nucleated RBC/100 WBC (Bld) [Ratio] 0 % 0-5 [facility] Platelet mean volume (Bld) [Entitic vol] 10.6 fL 6.2-12.0 [facility] Platelets (Bld) [#/Vol] 199 10*3/uL 150-450 [facility] No Panel InformationOrdered By: Heike Horta on 02-29-2024 Estimated Creatinine Clearance Calc 59.58 ml/min [facility] Estimated GFR (MDRD) Amer 102 mL/min >60 [facility] Comment on above: GFR Calc Estimated GFR (MDRD) Non-Af Amer 85 mL/min >60 [facility] Comment on above: Non- GFR Calc RBC Auto (Bld) [#/Vol]Ordere d By: Heike Horta on 02-29-2024 RBC (Bld) [#/Vol] 2.97 10*6/uL 4.2-5.4 [facility] Serum or plasma calcium loco urement (mass/volume)Ordered By: Heike Horta on 02-29-2024 Calcium [Mass/Vol] 7.6 mg/dL 8.5-10.1 [facility] Serum or plasma creatinine m easurement (mass/volume)Ordered By: Heike Horta on 02-29-2024 Creatinine [Mass/Vol] 0.72 mg/dL 0.55-1.02 [facility] Comment on above: The validity of the calculated GFR & GFRAA in patients over 70 years has not been determined. Clinical correlation is essential. Serum or plasma urea nitroge n measurement (mass/volume)Ordered By: Heike Horta on 02-29-2024 Urea nitrogen [Mass/Vol] 4 mg/dL 7-18 [facility] Thin prep Papanicolaou smear with manual screeningOrdered By: Heike Horta on 02-29-2024 Thin prep Papanicolaou smear with manual screening 6 5-15 [facility] Basophil percentageOrdered B y: Ganesh Magno on 02-28-2024 Basophil percentage 2.0 mg/dL 2.5-4.9 [facility] Serum or plasma trough vanco mycin levelOrdered By: Heike Horta on 02-27-2024 Vancomycin trough [Mass/Vol] 13.3 ug/mL 5.0-15.0 [facility] Comment on above: VANCOMYCIN STANDARED DRUG THERAPY TROUGH LEVEL: 5.0 - 15.0 mg/L VANCOMYCIN HIGH INTENSITY THERAPY TROUGH LEVEL: 15.0 - 20.0 mg/L High Intensity therapy recommended for serious lifethreatening infections include:- Rmeuybffrs-Wwdjbflhejls-Juxdiagji (Ventilator/Healtcare Associated)-Sepsis PLEASE CONTACT PHARMACY SERVICES (#[id number]) FOR INTERPRETATIONOF RESULTS. Culture, urineOrdered By: Allison Greco on 02-26-2024 Bacteria identified Cx Nom (U) Culture exhibits no growth. [facility] Basophil percentageOrdered B y: Heike Horta on 02-25-2024 Basophil percentage 0 SEEN /hpf 0-5 [facility] Bilirubin Test strip Ql (U)O rdered By: Heike Horta on 02-25-2024 Bilirubin Ql (U) Negative Negative [facility] Ketones Test strip Ql (U)Ord ered By: Heike Horta on 02-25-2024 Ketones Ql (U) 5 mg/dl Negative [facility] Laboratory - Microbiology an d Antimicrobial susceptibilityOrdered By: Heike Horta on 02-25-2024 Bacteria identified Cx Nom (Bld) No growth in 5 days. [facility] Mucus LM Ql (Urine sed)Order ed By: Heike Horta on 02-25-2024 Mucus Ql (Urine sed) 0 SEEN /hpf [facility] Nitrite Test strip Ql (U)Ord ered By: Heike Horta on 02-25-2024 Nitrite Ql (U) Negative Negative [facility] No Panel InformationOrdered By: Heike Horta on 02-25-2024 Urine RBC 0 SEEN /hpf 0-5 [facility] Protein Test strip Ql (U)Ord ered By: Heike Horta on 02-25-2024 Protein Ql (U) 15 mg/dl Negative [facility] Squamous epithelial cells de tection in urine sediment by light microscopyOrdered By: Heike Horta on 02-25-2024 Epithelial cells.squamous LM Ql (Urine sed) 0 SEEN /hpf 5-10 [facility] Urine blood detectionOrdered By: Heiek Horta on 02-25-2024 RBC Ql (U) Negative Negative [facility] Urine clarityOrdered By: Selina Horta on 02-25-2024 Clarity (U) Clear Clear [facility] Urine color determinationOrd ered By: Heike Horta on 02-25-2024 Color (U) Yellow Yellow [facility] Urine glucose detectionOrder ed By: Heike Horta on 02-25-2024 Glucose Ql (U) 1000 mg/dl Normal [facility] Urine leukocyte esterase det ection by dipstickOrdered By: Heike Horta on 02-25-2024 Leukocyte esterase Test strip Ql (U) Negative Negative [facility] Urine pHOrdered By: Heike Singh am on 02-25-2024 pH (U) 5.0 [pH] 5.0 - 8.0 [facility] Urine sediment bacteria coun t by microscopy (number/high power field)Ordered By: Heike Horta on 02-25-2024 Bacteria LM.HPF (Urine sed) [#/Area] 0 /[HPF] None Seen [facility] Urine specific gravity measu rementOrdered By: Heike Horta on 02-25-2024 Specific gravity (U) [Rel density] 1.020 1.002-1.03 0 [facility] Urine urobilinogen measureme ntOrdered By: Heike Horta on 02-25-2024 Urobilinogen Ql (U) Normal mg/dl Normal [facility] Thin prep Papanicolaou smear with manual screeningOrdered By: Heike Horta on 02-22-2024 Thin prep Papanicolaou smear with manual screening 183 mg/dL 74-106 [facility] Comment on above: MANAGEMENT OF PATIEN T CARE PER NURSING PROTOCOL Whole blood hemoglobin A1c/t otal hemoglobin ratio (mass fraction)Ordered By: Jose Sahni on 02-22-2024 HbA1c (Bld) [Mass fraction] 7.0 % 3.8-5.6 [facility] Comment on above: Normal < 5.7 % Predi abetic 5.7 - 6.4 % Diabetic >or= 6.5 % Please note range changes. Absolute lymphocyte countOrd ered By: Jose Jaime on 02-21-2024 Lymphocytes Auto (Unsp spec) [#/Vol] 1.08 10*3/uL 0.83-4.51 [facility] Activated partial thrombopla stin time (aPTT) in platelet poor plasma by coagulation aOrdered By: Jose Alemandarnell on 02-21-2024 aPTT Coag (PPP) [Time] 24.8 s 24.1-36.2 [facility] Automated lymphocyte count a s percentage of total leukocytesOrdered By: Jose Addison on 02-21-2024 Lymphocytes/100 WBC Auto (Unsp spec) 5.3 % 19-41 [facility] Basophil percentageOrdered B y: Jose Alemandarnell on 02-21-2024 Lactate [Moles/Vol] 1.5 mmol/L 0.4-2.0 [facility] Basophil percentage 0-5 SEEN /hpf 0-5 [facility] Basophils/100 WBC (Bld) 0.1 % 0-1 [facility] Bilirubin [Mass/Vol] 0.60 mg/dL 0.20-1.00 [facility] Comment on above: For patients on eltr ombopag therapy, use of [place] TBIL is not recommended. Chloride [Moles/Vol] 100 mmol/L 98-107 [facility] Eosinophils/100 WBC (Bld) 0.0 % 0-5 [facility] Glucose [Mass/Vol] 241 mg/dL 74-106 [facility] Comment on above: Glucose result great er than or equal to 200 mg/dLsuggests DIABETES MELLITUS per A.D.A. criteria. Hemoglobin (Bld) [Mass/Vol] 12.2 g/dL 12.0-15.0 [facility] Monocytes/100 WBC (Bld) 5.5 % 0-10 [facility] Neutrophils (Bld) [#/Vol] 18.1 10*3/uL 2.0-7.7 [facility] Neutrophils/100 WBC (Bld) 88.4 % 47-70 [facility] Potassium [Moles/Vol] 4.6 mmol/L 3.5-5.1 [facility] Protein [Mass/Vol] 7.8 g/dL 6.4-8.2 [facility] Sodium [Moles/Vol] 137 mmol/L 136-145 [facility] WBC (Bld) [#/Vol] 20.5 10*3/uL 4.4-11.0 [facility] Bilirubin Test strip Ql (U)O rdered By: Jose Jaime on 02-21-2024 Bilirubin Ql (U) 1 mg/dL Negative [facility] Comment on above: COLOR OF URINE MAY A FFECT DIPSTICK RESULTS. Determination of erythrocyte mean corpuscular volume (MCV)Ordered By: Jose Jaime on 02-21-2024 MCV (RBC) [Entitic vol] 91.5 fL 81-99 [facility] Erythrocyte distribution wid th ratioOrdered By: Jose Jaime on 02-21-2024 Erythrocyte distribution width (RBC) [Ratio] 13.3 % 11.6-14.6 [facility] Erythrocyte distribution wid th standard deviationOrdered By: Jose Jaime on 02-21-2024 Erythrocyte distribution width (RBC) [Entitic vol] 45.0 fL 35.1-43.9 [facility] Hematocrit Auto (Bld) [Volum e fraction]Ordered By: Jose Jaime on 02-21-2024 Hematocrit (Bld) [Volume fraction] 36.4 % 37-47 [facility] Immature granulocytes/100 WB C Auto (Bld)Ordered By: Jose Jaime on 02-21-2024 Immature granulocytes/100 WBC (Bld) 0.700 % 0.0-0.9 [facility] Comment on above: IG% - Immature Granu locytes (promyelocytes, myelocytes and metamyelocytes) > 1% indicates that a LEFT SHIFT is Present. Ketones Test strip Ql (U)Ord ered By: Jose Jaime on 02-21-2024 Ketones Ql (U) 5 mg/dl Negative [facility] Laboratory - Chemistry and C hemistry - challengeOrdered By: Jose Jaime on 02-21-2024 Albumin/Globulin [Mass ratio] 0.9 {ratio} 0.9-2.4 [facility] ALP [Catalytic activity/Vol] 58 U/L 45-117 [facility] ALT [Catalytic activity/Vol] 28 U/L 13-56 [facility] CO2 [Moles/Vol] 24.0 mmol/L 21.0-32.0 [facility] Globulin (S) [Mass/Vol] 4.1 g/dL 2.2-4.2 [facility] Lipase [Catalytic activity/Vol] 18 U/L 13-75 [facility] Comment on above: Please note:LIPASE r evised reference range effective 23. New Lipase methodology. Expected to produce lower values than the previous assay method. NEW Reference Range: 13 - 75 U/L Urea nitrogen/Creatinine [Mass ratio] 14.9 mg/mg 10-20 [facility] Laboratory - CoagulationOrde red By: Jose Jaime on 02-21-2024 INR Coag (Bld) [Relative time] 1.2 {INR} [facility] PT Coag (PPP) [Time] 15.1 s 11.7-14.9 [facility] Laboratory - Hematology and Cell countsOrdered By: Jose Jaime on 02-21-2024 MCH (RBC) [Entitic mass] 30.7 pg 27.0-32.0 [facility] MCHC (RBC) [Mass/Vol] 33.5 g/dL 32-36 [facility] Nucleated RBC/100 WBC (Bld) [Ratio] 0 % 0-5 [facility] Platelet mean volume (Bld) [Entitic vol] 11.3 fL 6.2-12.0 [facility] Platelets (Bld) [#/Vol] 198 10*3/uL 150-450 [facility] Lower GI hemoglobin IA Ql (S tl)Ordered By: Jose Jaime on 02-21-2024 Stool Occult Blood (EDUARDO) Positive [facility] Mucus LM Ql (Urine sed)Order ed By: Jose Jaime on 02-21-2024 Mucus Ql (Urine sed) 0 SEEN /hpf [facility] Nitrite Test strip Ql (U)Ord ered By: Jose Jaime on 02-21-2024 Nitrite Ql (U) Negative Negative [facility] No Panel InformationOrdered By: Jose Jaime on 02-21-2024 Urine RBC 0-5 SEEN /hpf 0-5 [facility] Estimated GFR (MDRD) Amer 30 mL/min >60 [facility] Comment on above: GFR Calc Estimated GFR (MDRD) Non-Af Amer 25 mL/min >60 [facility] Comment on above: Non- GFR Calc Protein Test strip Ql (U)Ord ered By: Jose Jaime on 02-21-2024 Protein Ql (U) 15 mg/dl Negative [facility] RBC Auto (Bld) [#/Vol]Ordere d By: Jose Jaime on 02-21-2024 RBC (Bld) [#/Vol] 3.98 10*6/uL 4.2-5.4 [facility] Serum or plasma calcium loco urement (mass/volume)Ordered By: Jose Jaime on 02-21-2024 Calcium [Mass/Vol] 9.4 mg/dL 8.5-10.1 [facility] Serum or plasma creatinine m easurement (mass/volume)Ordered By: Jose Jaime on 02-21-2024 Creatinine [Mass/Vol] 2.08 mg/dL 0.55-1.02 [facility] Comment on above: The validity of the calculated GFR & GFRAA in patients over 70 years has not been determined. Clinical correlation is essential. Serum or plasma urea nitroge n measurement (mass/volume)Ordered By: Jose Jaime on 02-21-2024 Urea nitrogen [Mass/Vol] 31 mg/dL 7-18 [facility] Squamous epithelial cells de tection in urine sediment by light microscopyOrdered By: Jose Jaime on 02-21-2024 Epithelial cells.squamous LM Ql (Urine sed) 0-5 SEEN /hpf 5-10 [facility] Stool enteric pathogen panel by probe and target amplification methodOrdered By: Dannie Hoyos on 02-21-2024 Gastrointestinal pathogens panel ENRIQUE+probe (Stl) [facility] Thin prep Papanicolaou smear with manual screeningOrdered By: Jose Jaime on 02-21-2024 Thin prep Papanicolaou smear with manual screening 3.7 g/dL 3.2-5.0 [facility] Thin prep Papanicolaou smear with manual screening 35 U/L 15-37 [facility] Thin prep Papanicolaou smear with manual screening 13 5-15 [facility] Urine blood detectionOrdered By: Jose Jaime on 02-21-2024 RBC Ql (U) 10 /ul Negative [facility] Urine clarityOrdered By: Ava Jaime on 02-21-2024 Clarity (U) Clear Clear [facility] Urine color determinationOrd ered By: Jose Jaime on 02-21-2024 Color (U) Yellow Yellow [facility] Urine glucose detectionOrder ed By: Jose Jaime on 02-21-2024 Glucose Ql (U) 1000 mg/dl Normal [facility] Urine leukocyte esterase det ection by dipstickOrdered By: Jose Jaime on 02-21-2024 Leukocyte esterase Test strip Ql (U) 25 /ul Negative [facility] Urine pHOrdered By: Jose navarrete on 02-21-2024 pH (U) 5.0 [pH] 5.0 - 8.0 [facility] Urine sediment bacteria coun t by microscopy (number/high power field)Ordered By: Jose Jaime on 02-21-2024 Bacteria LM.HPF (Urine sed) [#/Area] 0 /[HPF] None Seen [facility] Urine specific gravity measu rementOrdered By: Jose Jaime on 02-21-2024 Specific gravity (U) [Rel density] 1.015 1.002-1.03 0 [facility] Urine urobilinogen measureme ntOrdered By: Jose Jaime on 02-21-2024 Urobilinogen Ql (U) 1 mg/dl Normal [facility] Absolute lymphocyte countOrd ered By: Breann East on 02-19-2024 Lymphocytes Auto (Unsp spec) [#/Vol] 2.61 10*3/uL 0.83-4.51 [facility] Automated lymphocyte count a s percentage of total leukocytesOrdered By: Breann East on 02-19-2024 Lymphocytes/100 WBC Auto (Unsp spec) 33.5 % 19-41 [facility] Basophil percentageOrdered B y: Breann East on 02-19-2024 Basophils/100 WBC (Bld) 0.5 % 0-1 [facility] Bilirubin [Mass/Vol] 0.30 mg/dL 0.20-1.00 [facility] Comment on above: For patients on eltr ombopag therapy, use of [place] TBIL is not recommended. Chloride [Moles/Vol] 107 mmol/L 98-107 [facility] Eosinophils/100 WBC (Bld) 1.8 % 0-5 [facility] Glucose [Mass/Vol] 133 mg/dL 74-106 [facility] Comment on above: Fasting Glucose resu lt greater than or equal to 126 mg/dL suggests DIABETES MELLITUS per A.D.A. criteria. Hemoglobin (Bld) [Mass/Vol] 11.9 g/dL 12.0-15.0 [facility] Monocytes/100 WBC (Bld) 7.3 % 0-10 [facility] Neutrophils (Bld) [#/Vol] 4.4 10*3/uL 2.0-7.7 [facility] Neutrophils/100 WBC (Bld) 56.6 % 47-70 [facility] Potassium [Moles/Vol] 4.6 mmol/L 3.5-5.1 [facility] Protein [Mass/Vol] 7.6 g/dL 6.4-8.2 [facility] Sodium [Moles/Vol] 139 mmol/L 136-145 [facility] WBC (Bld) [#/Vol] 7.8 10*3/uL 4.4-11.0 [facility] Basophil percentage 0 SEEN /hpf 0-5 [facility] Bilirubin Test strip Ql (U)O rdered By: Breann East on 02-19-2024 Bilirubin Ql (U) Negative Negative [facility] Determination of erythrocyte mean corpuscular volume (MCV)Ordered By: Breann East on 02-19-2024 MCV (RBC) [Entitic vol] 93.8 fL 81-99 [facility] Erythrocyte distribution wid th ratioOrdered By: Breann East on 02-19-2024 Erythrocyte distribution width (RBC) [Ratio] 13.2 % 11.6-14.6 [facility] Erythrocyte distribution wid th standard deviationOrdered By: Breann East on 02-19-2024 Erythrocyte distribution width (RBC) [Entitic vol] 45.7 fL 35.1-43.9 [facility] Hematocrit Auto (Bld) [Volum e fraction]Ordered By: Breann East on 02-19-2024 Hematocrit (Bld) [Volume fraction] 36.6 % 37-47 [facility] Immature granulocytes/100 WB C Auto (Bld)Ordered By: Breann East on 02-19-2024 Immature granulocytes/100 WBC (Bld) 0.300 % 0.0-0.9 [facility] Comment on above: IG% - Immature Granu locytes (promyelocytes, myelocytes and metamyelocytes) > 1% indicates that a LEFT SHIFT is Present. Ketones Test strip Ql (U)Ord ered By: Breann East on 02-19-2024 Ketones Ql (U) Negative Negative [facility] Laboratory - Chemistry and C hemistry - challengeOrdered By: Breann East on 02-19-2024 Albumin/Globulin [Mass ratio] 0.9 {ratio} 0.9-2.4 [facility] ALP [Catalytic activity/Vol] 58 U/L 45-117 [facility] ALT [Catalytic activity/Vol] 20 U/L 13-56 [facility] CO2 [Moles/Vol] 29.0 mmol/L 21.0-32.0 [facility] Globulin (S) [Mass/Vol] 3.9 g/dL 2.2-4.2 [facility] Urea nitrogen/Creatinine [Mass ratio] 21.1 mg/mg 10-20 [facility] Laboratory - Hematology and Cell countsOrdered By: Breann East on 02-19-2024 MCH (RBC) [Entitic mass] 30.5 pg 27.0-32.0 [facility] MCHC (RBC) [Mass/Vol] 32.5 g/dL 32-36 [facility] Nucleated RBC/100 WBC (Bld) [Ratio] 0 % 0-5 [facility] Platelet mean volume (Bld) [Entitic vol] 11.0 fL 6.2-12.0 [facility] Platelets (Bld) [#/Vol] 172 10*3/uL 150-450 [facility] Mucus LM Ql (Urine sed)Order ed By: Breann East on 02-19-2024 Mucus Ql (Urine sed) 0 SEEN /hpf [facility] Nitrite Test strip Ql (U)Ord ered By: Breann East on 02-19-2024 Nitrite Ql (U) Negative Negative [facility] No Panel InformationOrdered By: Breann East on 02-19-2024 Estimated Creatinine Clearance Calc 36.28 ml/min [facility] Estimated GFR (MDRD) Amer 51 mL/min >60 [facility] Comment on above: GFR Calc Estimated GFR (MDRD) Non-Af Amer 42 mL/min >60 [facility] Comment on above: Non- GFR Calc Urine RBC 0 SEEN /hpf 0-5 [facility] Protein Test strip Ql (U)Ord ered By: Breann East on 02-19-2024 Protein Ql (U) Negative Negative [facility] RBC Auto (Bld) [#/Vol]Ordere d By: Breann East on 02-19-2024 RBC (Bld) [#/Vol] 3.90 10*6/uL 4.2-5.4 [facility] Serum or plasma calcium loco urement (mass/volume)Ordered By: Breann East on 02-19-2024 Calcium [Mass/Vol] 9.3 mg/dL 8.5-10.1 [facility] Serum or plasma creatinine m easurement (mass/volume)Ordered By: Breann East on 02-19-2024 Creatinine [Mass/Vol] 1.33 mg/dL 0.55-1.02 [facility] Comment on above: The validity of the calculated GFR & GFRAA in patients over 70 years has not been determined. Clinical correlation is essential. Serum or plasma urea nitroge n measurement (mass/volume)Ordered By: Breann East on 02-19-2024 Urea nitrogen [Mass/Vol] 28 mg/dL 7-18 [facility] Squamous epithelial cells de tection in urine sediment by light microscopyOrdered By: Breann East on 02-19-2024 Epithelial cells.squamous LM Ql (Urine sed) 0 SEEN /hpf 5-10 [facility] Thin prep Papanicolaou smear with manual screeningOrdered By: Breann East on 02-19-2024 Thin prep Papanicolaou smear with manual screening 3.7 g/dL 3.2-5.0 [facility] Thin prep Papanicolaou smear with manual screening 23 U/L 15-37 [facility] Thin prep Papanicolaou smear with manual screening 3 5-15 [facility] Urine blood detectionOrdered By: Breann East on 02-19-2024 RBC Ql (U) Negative Negative [facility] Urine clarityOrdered By: Chaz East on 02-19-2024 Clarity (U) Clear Clear [facility] Urine color determinationOrd ered By: Breann East on 02-19-2024 Color (U) Yellow Yellow [facility] Urine glucose detectionOrder ed By: Breann East on 02-19-2024 Glucose Ql (U) 1000 mg/dl Normal [facility] Urine leukocyte esterase det ection by dipstickOrdered By: Breann East on 02-19-2024 Leukocyte esterase Test strip Ql (U) 25 /ul Negative [facility] Urine pHOrdered By: Niurka East on 02-19-2024 pH (U) 6.0 [pH] 5.0 - 8.0 [facility] Urine sediment bacteria coun t by microscopy (number/high power field)Ordered By: Breann East on 02-19-2024 Bacteria LM.HPF (Urine sed) [#/Area] 0 /[HPF] None Seen [facility] Urine specific gravity measu rementOrdered By: Breann East on 02-19-2024 Specific gravity (U) [Rel density] 1.015 1.002-1.03 0 [facility] Urine urobilinogen measureme ntOrdered By: Breann East on 02-19-2024 Urobilinogen Ql (U) Normal mg/dl Normal [facility] .Auto Diffon 02-14-2024 Basophil, Absolute 0.0 10 3/mcL Normal 0.0-0.2 [facility] ([place]) Comment on above: Performed By: #### L IPID, FERR, GFR, ANEU, CBC, TSH, CMP, ADIFF, A1C, VIDH #### [id number] [place], [place] [address] Basophils/100 WBC (Bld) 0.5 % Normal 0.0-2.5 [facility] ([place]) Comment on above: Performed By: #### L IPID, FERR, GFR, ANEU, CBC, TSH, CMP, ADIFF, A1C, VIDH #### [address] [address] Eosinophil, Absolute 0.2 10 3/mcL Normal 0.0-0.4 [facility] ([place]) Comment on above: Performed By: #### L IPID, FERR, GFR, ANEU, CBC, TSH, CMP, ADIFF, A1C, VIDH #### [address] [address] Eosinophils/100 WBC (Bld) 2.5 % Normal 0.0-7.0 [facility] ([place] Comment on above: Performed By: #### L IPID, FERR, GFR, ANEU, CBC, TSH, CMP, ADIFF, A1C, VIDH #### [address] [address] Lymphocyte, Absolute 2.4 10 3/mcL Normal 0.8-3.9 [facility] ([place]) Comment on above: Performed By: #### L IPID, FERR, GFR, ANEU, CBC, TSH, CMP, ADIFF, A1C, VIDH #### [address] [address] Lymphocytes/100 WBC (Bld) 30.7 % Normal 10.0-50.0 [facility] ([place] Comment on above: Performed By: #### L IPID, FERR, GFR, ANEU, CBC, TSH, CMP, ADIFF, A1C, VIDH #### [address] [address] Monocyte, Absolute 0.5 10 3/mcL Normal 0.2-1.0 [facility] ([place] Comment on above: Performed By: #### L IPID, FERR, GFR, ANEU, CBC, TSH, CMP, ADIFF, A1C, VIDH #### [address] [address] Monocytes/100 WBC (Bld) 6.7 % Normal 1.7-13.0 [facility] ([place] Comment on above: Performed By: #### L IPID, FERR, GFR, ANEU, CBC, TSH, CMP, ADIFF, A1C, VIDH #### [address] [address] Neutrophils/100 WBC (Bld) 59.6 % Normal 37.0-80.0 [facility] ([place] Comment on above: Performed By: #### L IPID, FERR, GFR, ANEU, CBC, TSH, CMP, ADIFF, A1C, VIDH #### [id number] [place], [place] [address] .GFRon 02-14-2024 GFR 51 ml/min/1.73sqm Normal [facility] ([place]) Comment on above: Result Comment: GFR Population [...] ANEU, CBC, TSH, CMP, ADIFF, A1C, VIDH ####[address] [address] GFR Non- 42 ml/min/1.73sqm Normal [facility] ([place]) Comment on above: Result Comment: GFR Population [...] ANEU, CBC, TSH, CMP, ADIFF, A1C, VIDH ####[address] [address] .NEUABSon 02-14-2024 Neutrophil, Absolute 4.6 10 3/mcL Normal 2.9-6.2 [facility] ([place]) Comment on above: Performed By: #### L IPID, FERR, GFR, ANEU, CBC, TSH, CMP, ADIFF, A1C, VIDH #### [place] [address] A1Con 02-14-2024 HbA1c (Bld) [Mass fraction] 7.2 % High 4.3-6.4 [facility] ([place]) Comment on above: Performed By: #### L IPID, FERR, GFR, ANEU, CBC, TSH, CMP, ADIFF, A1C, VIDH #### [place] [address] CBCon 02-14-2024 Erythrocyte distribution width (RBC) [Ratio] 13.9 % Normal 11.5-14.5 [facility] ([place]) Comment on above: Performed By: #### L IPID, FERR, GFR, ANEU, CBC, TSH, CMP, ADIFF, A1C, VIDH #### [place] [address] Hematocrit (Bld) [Volume fraction] 34.7 % Low 37.0-47.0 [facility] ([place] Comment on above: Performed By: #### L IPID, FERR, GFR, ANEU, CBC, TSH, CMP, ADIFF, A1C, VIDH #### [address] [address] Hgb 11.9 G/dL Low 12.0-16.0 [facility] ([place] Comment on above: Performed By: #### L IPID, FERR, GFR, ANEU, CBC, TSH, CMP, ADIFF, A1C, VIDH #### [address] [address] MCH (RBC) [Entitic mass] 30.8 pg Normal 27.0-31.2 [facility] ([place] Comment on above: Performed By: #### L IPID, FERR, GFR, ANEU, CBC, TSH, CMP, ADIFF, A1C, VIDH #### [address] [address] MCHC 34.4 G/dL Normal 33.0-37.0 [facility] ([place] Comment on above: Performed By: #### L IPID, FERR, GFR, ANEU, CBC, TSH, CMP, ADIFF, A1C, VIDH #### [address] [address] MCV (RBC) [Entitic vol] 89.7 fL Normal 80.0-94.0 [facility] ([place] Comment on above: Performed By: #### L IPID, FERR, GFR, ANEU, CBC, TSH, CMP, ADIFF, A1C, VIDH #### [address] [address] Platelet 154 10 3/mcL Normal 130-400 [facility] ([place]) Comment on above: Performed By: #### L IPID, FERR, GFR, ANEU, CBC, TSH, CMP, ADIFF, A1C, VIDH #### [address] [address] Platelet mean volume (Bld) [Entitic vol] 9.1 fL Normal 7.4-10.4 [facility] ([place] Comment on above: Performed By: #### L IPID, FERR, GFR, ANEU, CBC, TSH, CMP, ADIFF, A1C, VIDH #### [place] [id number] RBC 3.87 10 6/mcL Low 4.20-5.40 [facility] ([place] Comment on above: Performed By: #### L IPID, FERR, GFR, ANEU, CBC, TSH, CMP, ADIFF, A1C, VIDH #### [address] [place], [place] [address] WBC 7.8 10 3/mcL Normal 4.6-10.8 [facility] ([place] Comment on above: Performed By: #### L IPID, FERR, GFR, ANEU, CBC, TSH, CMP, ADIFF, A1C, VIDH #### [address] [place], [place] [address] CMPon 02-14-2024 Albumin Level 3.7 G/dL Normal 3.4-4.8 [facility] ([place]) Comment on above: Performed By: #### L IPID, FERR, GFR, ANEU, CBC, TSH, CMP, ADIFF, A1C, VIDH ####[address] [place], [place] [address] Albumin/Globulin [Mass ratio] 1.1 {ratio} Normal 1.1-2.5 [facility] ([place]) Comment on above: Performed By: #### L IPID, FERR, GFR, ANEU, CBC, TSH, CMP, ADIFF, A1C, VIDH ####[address] [place], [place] [address] ALP [Catalytic activity/Vol] 61 U/L Normal 40-135 [facility] ([place]) Comment on above: Performed By: #### L IPID, FERR, GFR, ANEU, CBC, TSH, CMP, ADIFF, A1C, VIDH ####[address] [place], [place] [address] ALT [Catalytic activity/Vol] 21 U/L Normal 14-59 [facility] ([place]) Comment on above: Performed By: #### L IPID, FERR, GFR, ANEU, CBC, TSH, CMP, ADIFF, A1C, VIDH ####[address] [place], [place] [address] AST [Catalytic activity/Vol] 19 U/L Normal 10-40 [facility] ([place] Comment on above: Performed By: #### L IPID, FERR, GFR, ANEU, CBC, TSH, CMP, ADIFF, A1C, VIDH ####[address] [place], [place] [address] Bili Total 0.3 mg/dL Normal 0.2-1.0 [facility] ([place]) Comment on above: Result Comment: Use of this assay is not recommended for patients undergoing treatment with eltrombopag due to the potential for falsely elevated results. Performed By: #### L IPID, FERR, GFR, ANEU, CBC, TSH, CMP, ADIFF, A1C, VIDH ####[address] [place], [place] [address] BUN/Creatinine Ratio 23 ratio Normal 7-27 [facility] ([place]) Comment on above: Performed By: #### L IPID, FERR, GFR, ANEU, CBC, TSH, CMP, ADIFF, A1C, VIDH ####[address] [place], [place] [address] Calcium [Mass/Vol] 9.1 mg/dL Normal 8.4-10.2 [facility] ([place]) Comment on above: Performed By: #### L IPID, FERR, GFR, ANEU, CBC, TSH, CMP, ADIFF, A1C, VIDH ####[address] [place], [place] [address] Chloride [Moles/Vol] 103 mmol/L Normal 98-107 [facility] ([place]) Comment on above: Performed By: #### L IPID, FERR, GFR, ANEU, CBC, TSH, CMP, ADIFF, A1C, VIDH ####[address] [place], [place] [address] CO2 [Moles/Vol] 29 mmol/L Normal 23-31 [facility] ([place] Comment on above: Performed By: #### L IPID, FERR, GFR, ANEU, CBC, TSH, CMP, ADIFF, A1C, VIDH ####[address] [place], [place] [address] Creatinine [Mass/Vol] 1.26 mg/dL High 0.55-1.02 [facility] ([place]) Comment on above: Performed By: #### L IPID, FERR, GFR, ANEU, CBC, TSH, CMP, ADIFF, A1C, VIDH ####[facility] [place], [place] [address] Electrolyte Balance 8.0 mEq/L Normal 4.0-15.0 [facility] ([place]) Comment on above: Performed By: #### L IPID, FERR, GFR, ANEU, CBC, TSH, CMP, ADIFF, A1C, VIDH ####[address] [place], [place] [address] Globulin 3.3 G/dL Normal [facility] ([place]) Comment on above: Performed By: #### L IPID, FERR, GFR, ANEU, CBC, TSH, CMP, ADIFF, A1C, VIDH ####[address] [place], [place] [address] Glucose [Mass/Vol] 126 mg/dL High 83-110 [facility] ([place]) Comment on above: Performed By: #### L IPID, FERR, GFR, ANEU, CBC, TSH, CMP, ADIFF, A1C, VIDH ####[address] [place], [place] [address] Potassium [Moles/Vol] 4.6 mmol/L Normal 3.5-5.1 [facility] ([place]) Comment on above: Performed By: #### L IPID, FERR, GFR, ANEU, CBC, TSH, CMP, ADIFF, A1C, VIDH ####[address] [place], [place] [address] Sodium [Moles/Vol] 140 mmol/L Normal 136-145 [facility] ([place]) Comment on above: Performed By: #### L IPID, FERR, GFR, ANEU, CBC, TSH, CMP, ADIFF, A1C, VIDH ####[address] [place], [place] [address] Total Protein 7.0 G/dL Normal 6.4-8.2 [facility] ([place]) Comment on above: Performed By: #### L IPID, FERR, GFR, ANEU, CBC, TSH, CMP, ADIFF, A1C, VIDH ####[address] [place], [place] [address] Urea nitrogen [Mass/Vol] 29 mg/dL High 7-18 [facility] ([place]) Comment on above: Performed By: #### L IPID, FERR, GFR, ANEU, CBC, TSH, CMP, ADIFF, A1C, VIDH ####[address] [place], [place] [address] Joselyn 02-14-2024 Ferritin [Mass/Vol] 155.0 ng/mL Normal 8.0-252.0 [facility] ([place]) Comment on above: Performed By: #### L IPID, FERR, GFR, ANEU, CBC, TSH, CMP, ADIFF, A1C, VIDH #### Katie Mayo [address] [place], [place] [address] LIPIDon 02-14-2024 Cholesterol [Mass/Vol] 124 mg/dL Normal 0-200 [facility] ([place]) Comment on above: Result Comment: Chol esterol Reference Interval: Less than 200 Desirable 200-239 Borderline high risk 240 and above High risk Performed By: #### L IPID, FERR, GFR, ANEU, CBC, TSH, CMP, ADIFF, A1C, VIDH ####Katie [id number] [place], [place] [address] Cholesterol in HDL [Mass/Vol] 38 mg/dL Low 40-60 [facility] ([place]) Comment on above: Performed By: #### L IPID, FERR, GFR, ANEU, CBC, TSH, CMP, ADIFF, A1C, VIDH ####Katie [address] [place], [place] [address] Cholesterol in LDL [Mass/Vol] 37 mg/dL Normal 0-130 [facility] ([place]) Comment on above: Performed By: #### L IPID, FERR, GFR, ANEU, CBC, TSH, CMP, ADIFF, A1C, VIDH ####[facility] [place], [place] [address] Triglyceride [Mass/Vol] 246 mg/dL High 0-150 [facility] ([place]) Comment on above: Result Comment: Trig lyceride Reference Interval: Less than 150 Normal 150-199 Borderline high risk 200-499 High risk 500 or higher Very high risk Performed By: #### L IPID, FERR, GFR, ANEU, CBC, TSH, CMP, ADIFF, A1C, VIDH ####Katie [address] [place], [place] [address] TSHon 02-14-2024 TSH Qn 2.18 m[IU]/L Normal 0.36-3.74 [facility] ([place]) Comment on above: Performed By: #### L IPID, FERR, GFR, ANEU, CBC, TSH, CMP, ADIFF, A1C, VIDH #### Katie [address] [place], [place] [address] VIDHon 02-14-2024 Vit. D 25-Hydroxy 55.4 ng/mL Normal [facility] ([place]) Comment on above: Result Comment: Inte rpretive Values Based on Total 25(OH) Vitamin D: Deficient <20 ng/mL Insufficient 20 - <30 ng/mL Sufficient 30-100 ng/mL Performed By: #### L IPID, FERR, GFR, ANEU, CBC, TSH, CMP, ADIFF, A1C, VIDH ####Katie [address] [place], [place] [address] BD B[facility] BD BONE DENSITY DEXA AXIAL SKELETON [...] 12/27/2023 3:14:57 PM Ordering Provider: ADRIENNE Bassett [facility] ([place]) MA MAMMOGRAM SCREENING BILAT ERAL W/TOMOon 12-27-2023 MA MAMMOGRAM SCREENING BILATERAL W/YOAV ORIGINAL FROM: [place] [address] PROCEDURE FOR: MANSI CARO [address] [place] [id number] Home: PID#: [id number] Exam#: [id number] : 1955 Age: 68 TO: ADRIENNE BYERS DO [address] [place] [address] Fax: NO FAX EXAMINATION: SCREENING DIGITAL BILATERAL [...] addition to annual mammographic screening per the [employer]. BIRADS: MAMMOGRAM BI-RADS: 1: Negative RECALL: 1 year screening RECALL TYPE: mammo LETTER SENT: Normal BI-RADS 1 and 2 Interpreted by: Lesley Levine Preliminary Report By: Lesley Levine Electronically signed By Lesley Levine Dictated Date: 12/27/2023 8:56:06 PM Prelim Date: 12/27/2023 8:59:32 PM Sign Date: 12/27/2023 8:59:32 PM Ordering Provider: ADRIENNE BYERS Optometric Tech: CHARLEE BARCENAS RT(R)(M)(CT) letter sent: Normal BI-RADS 1 and 2 Mammogram BI-RADS: 1 Negative Normal [facility] ([place]) Thin prep Papanicolaou smear with manual screeningOrdered By: Uday Orosco on 12-08-2023 Thin prep Papanicolaou smear with manual screening 129 mg/dL 74-106 [facility] Comment on above: MANAGEMENT OF PATIEN [...] 10-25-2023 Cholesterol [Mass/Vol] 123 mg/dL Normal 0-200 [facility] ([place]) Comment on above: Result Comment: Chol esterol Reference Interval: Less than 200 Desirable 200-239 Borderline high risk 240 and above High risk Performed By: #### C RE, GFR #### [address] [address] Cholesterol in HDL [Mass/Vol] 44 mg/dL Normal 40-60 [facility] ([place]) Comment on above: Performed By: #### C RE, GFR #### [address] [address] Cholesterol in LDL [Mass/Vol] 51 mg/dL Normal 0-130 [facility] ([place]) Comment on above: Performed By: #### C RE, GFR #### [address] [address] Triglyceride [Mass/Vol] 139 mg/dL Normal 0-150 [facility] ([place]) Comment on above: Result Comment: Trig lyceride Reference Interval: Less than 150 Normal 150-199 Borderline high risk 200-499 High risk 500 or higher Very high risk Performed By: #### C RE, GFR #### [address] [address] PBNPon 10-25-2023 Natriuretic peptide B (Bld) [Mass/Vol] 297 pg/mL High 0-125 [facility] ([place]) Comment on above: Result Comment: NT-p roBNP results of less than 300 pg/mL effectively rules out acute congestive heart failure with 99% negative predictive value. Performed By: #### L IPID, PBNP ####[address] [address] Glucose Glucometer (BldC) [M ass/Vol]Ordered By: Camacho Aguilar on 10-12-2023 Glucose [Mass/Vol] 207 mg/dL 74-106 [facility] Comment on above: MANAGEMENT OF PATIEN T CARE PER NURSING PROTOCOL Absolute lymphocyte countOrd ered By: Tony Mayer on 10-11-2023 Lymphocytes Auto (Unsp spec) [#/Vol] 2.84 10*3/uL 0.83-4.51 [facility] Basophil percentageOrdered B y: Tony Mayer on 10-11-2023 Basophil percentage 3.6 mg/dL 2.5-4.9 [facility] Basophils/100 WBC (Bld) 0.8 % 0-1 [facility] Chloride [Moles/Vol] 111 mmol/L 98-107 [facility] Eosinophils/100 WBC (Bld) 2.5 % 0-5 [facility] Glucose [Mass/Vol] 123 mg/dL 74-106 [facility] Comment on above: Fasting Glucose resu lt from 100 to 125 mg/dL suggests IMPAIRED HOMEOSTASIS per A.D.A. criteria. Neutrophils (Bld) [#/Vol] 1.7 10*3/uL 2.0-7.7 [facility] Neutrophils/100 WBC (Bld) 33.5 % 47-70 [facility] Potassium [Moles/Vol] 4.0 mmol/L 3.5-5.1 [facility] Sodium [Moles/Vol] 142 mmol/L 136-145 [facility] WBC (Bld) [#/Vol] 5.2 10*3/uL 4.4-11.0 [facility] Blood erythrocytes count (nu mber/volume)Ordered By: Tony Mayer on 10-11-2023 RBC (Bld) [#/Vol] 3.75 10*6/uL 4.2-5.4 [facility] Blood hemoglobin measurement (mass/volume)Ordered By: Tony Mayer on 10-11-2023 Hemoglobin (Bld) [Mass/Vol] 11.5 g/dL 12.0-15.0 [facility] Blood lymphocytes/100 leukoc ytesOrdered By: Tony Mayer on 10-11-2023 Lymphocytes/100 WBC (Bld) 54.9 % 19-41 [facility] Blood monocytes/100 leukocyt esOrdered By: Tony Mayer on 10-11-2023 Monocytes/100 WBC (Bld) 8.3 % 0-10 [facility] Blood platelet mean volumeOr dered By: Tony Mayer on 10-11-2023 Platelet mean volume (Bld) [Entitic vol] 10.8 fL 6.2-12.0 [facility] Determination of erythrocyte mean corpuscular volume (MCV)Ordered By: Tony Mayer on 10-11-2023 MCV (RBC) [Entitic vol] 96.0 fL 81-99 [facility] Hematocrit Auto (Bld) [Volum e fraction]Ordered By: Tony Mayer on 10-11-2023 Hematocrit (Bld) [Volume fraction] 36.0 % 37-47 [facility] Laboratory - Chemistry and C hemistry - challengeOrdered By: Tony Mayer on 10-11-2023 CO2 [Moles/Vol] 25.0 mmol/L 21.0-32.0 [facility] Magnesium [Mass/Vol] 2.2 mg/dL 1.6-2.6 [facility] Urea nitrogen/Creatinine [Mass ratio] 27.2 mg/mg 10-20 [facility] Laboratory - Hematology and Cell countsOrdered By: Tony Mayer on 10-11-2023 Erythrocyte distribution width (RBC) [Entitic vol] 48.7 fL 35.1-43.9 [facility] Erythrocyte distribution width (RBC) [Ratio] 13.7 % 11.6-14.6 [facility] Immature granulocytes/100 WBC (Bld) 0.000 % 0.0-0.9 [facility] Comment on above: IG% - Immature Granu locytes (promyelocytes, myelocytes and metamyelocytes) > 1% indicates that a LEFT SHIFT is Present. MCH (RBC) [Entitic mass] 30.7 pg 27.0-32.0 [facility] Nucleated RBC/100 WBC (Bld) [Ratio] 0 % 0-5 [facility] MCHC Auto (RBC) [Mass/Vol]Or dered By: Tony Mayer on 10-11-2023 MCHC (RBC) [Mass/Vol] 31.9 g/dL 32-36 [facility] No Panel InformationOrdered By: Tony Mayer on 10-11-2023 Estimated Creatinine Clearance Calc 56.77 ml/min [facility] Estimated GFR (MDRD) Amer 78 mL/min >60 [facility] Comment on above: GFR Calc Estimated GFR (MDRD) Non-Af Amer 64 mL/min >60 [facility] Comment on above: Non- GFR Calc Platelets bldOrdered By: Jesu Mayer on 10-11-2023 Platelets (Bld) [#/Vol] 144 10*3/uL 150-450 [facility] Serum or plasma calcium loco urement (mass/volume)Ordered By: Tony Mayer on 10-11-2023 Calcium [Mass/Vol] 8.7 mg/dL 8.5-10.1 [facility] Serum or plasma creatinine m easurement (mass/volume)Ordered By: Tony Mayer on 10-11-2023 Creatinine [Mass/Vol] 0.92 mg/dL 0.55-1.02 [facility] Comment on above: The validity of the calculated GFR & GFRAA in patients over 70 years has not been determined. Clinical correlation is essential. Serum or plasma urea nitroge n measurement (mass/volume)Ordered By: Tony Mayer on 10-11-2023 Urea nitrogen [Mass/Vol] 25 mg/dL 7-18 [facility] Thin prep Papanicolaou smear with manual screeningOrdered By: Tony Mayer on 10-11-2023 Thin prep Papanicolaou smear with manual screening 6 5-15 [facility] Basophil percentageOrdered B y: Jaci Greco on 10-08-2023 Bilirubin [Mass/Vol] 0.30 mg/dL 0.20-1.00 [facility] Comment on above: For patients on eltr ombopag therapy, use of Dimension [place] TBIL is not recommended. Protein [Mass/Vol] 6.5 g/dL 6.4-8.2 [facility] Laboratory - Chemistry and C hemistry - challengeOrdered By: Jaci Greco on 10-08-2023 ALP [Catalytic activity/Vol] 48 U/L 45-117 [facility] ALT [Catalytic activity/Vol] 17 U/L 13-56 [facility] Globulin (S) [Mass/Vol] 3.2 g/dL 2.2-4.2 [facility] Serum or plasma albumin loco urement (mass/volume)Ordered By: Jaci Fannie on 10-08-2023 Albumin [Mass/Vol] 3.3 g/dL 3.2-5.0 [facility] Serum or plasma albumin/glob ulin mass ratioOrdered By: [facility] Fannie on 10-08-2023 Albumin/Globulin [Mass ratio] 1.0 {ratio} 0.9-2.4 [facility] Thin prep Papanicolaou smear with manual screeningOrdered By: [facility] Fannie on 10-08-2023 Thin prep Papanicolaou smear with manual screening 18 U/L 15-37 [facility] Whole blood hemoglobin A1c/t otal hemoglobin ratio (mass fraction)Ordered By: Jaci Fannie on 10-08-2023 HbA1c (Bld) [Mass fraction] 6.8 % 3.8-5.6 [facility] Comment on above: Normal < 5.7 % Predi abetic 5.7 - 6.4 % Diabetic >or= 6.5 % Please note range changes. Absolute lymphocyte countOrd ered By: David Best on 10-07-2023 Lymphocytes Auto (Unsp spec) [#/Vol] 3.02 10*3/uL 0.83-4.51 [facility] Basophil percentageOrdered B y: David Best on 10-07-2023 Basophils/100 WBC (Bld) 0.6 % 0-1 [facility] Chloride [Moles/Vol] 108 mmol/L 98-107 [facility] Eosinophils/100 WBC (Bld) 0.9 % 0-5 [facility] Glucose [Mass/Vol] 137 mg/dL 74-106 [facility] Comment on above: Fasting Glucose resu lt greater than or equal to 126 mg/dL suggests DIABETES MELLITUS per A.D.A. criteria. Neutrophils (Bld) [#/Vol] 2.7 10*3/uL 2.0-7.7 [facility] Neutrophils/100 WBC (Bld) 41.7 % 47-70 [facility] Potassium [Moles/Vol] 4.4 mmol/L 3.5-5.1 [facility] Sodium [Moles/Vol] 140 mmol/L 136-145 [facility] WBC (Bld) [#/Vol] 6.4 10*3/uL 4.4-11.0 [facility] Blood erythrocytes count (nu mber/volume)Ordered By: David Best on 10-07-2023 RBC (Bld) [#/Vol] 3.91 10*6/uL 4.2-5.4 [facility] Blood hemoglobin measurement (mass/volume)Ordered By: David Best on 10-07-2023 Hemoglobin (Bld) [Mass/Vol] 12.0 g/dL 12.0-15.0 [facility] Blood lymphocytes/100 leukoc ytesOrdered By: David Best on 10-07-2023 Lymphocytes/100 WBC (Bld) 47.6 % 19-41 [facility] Blood monocytes/100 leukocyt esOrdered By: David Best on 10-07-2023 Monocytes/100 WBC (Bld) 9.0 % 0-10 [facility] Blood platelet mean volumeOr dered By: David Best on 10-07-2023 Platelet mean volume (Bld) [Entitic vol] 11.7 fL 6.2-12.0 [facility] Determination of erythrocyte mean corpuscular volume (MCV)Ordered By: David Best on 10-07-2023 MCV (RBC) [Entitic vol] 96.7 fL 81-99 [facility] Glucose Glucometer (dC) [M ass/Vol]Ordered By: Alonso Marte on 10-07-2023 Glucose [Mass/Vol] 126 mg/dL 74-106 [facility] Comment on above: MANAGEMENT OF PATIEN T CARE PER NURSING PROTOCOL Hematocrit Auto (Bld) [Volum e fraction]Ordered By: David Best on 10-07-2023 Hematocrit (Bld) [Volume fraction] 37.8 % 37-47 [facility] INR in Blood by Coagulation assayOrdered By: David Best on 10-07-2023 INR Coag (Bld) [Relative time] 1.0 {INR} [facility] Laboratory - Chemistry and C hemistry - challengeOrdered By: David Best on 10-07-2023 CO2 [Moles/Vol] 26.0 mmol/L 21.0-32.0 [facility] Urea nitrogen/Creatinine [Mass ratio] 23.1 mg/mg 10-20 [facility] Laboratory - Chemistry and C hemistry - challengeOrdered By: Jaci Greco on 10-07-2023 Magnesium [Mass/Vol] 2.5 mg/dL 1.6-2.6 [facility] Laboratory - CoagulationOrde red By: David Best on 10-07-2023 aPTT Coag (Bld) [Time] 28.7 s 24.1-36.2 [facility] PT Coag (PPP) [Time] 12.9 s 11.7-14.9 [facility] Laboratory - Hematology and Cell countsOrdered By: David Best on 10-07-2023 Erythrocyte distribution width (RBC) [Entitic vol] 48.8 fL 35.1-43.9 [facility] Erythrocyte distribution width (RBC) [Ratio] 13.6 % 11.6-14.6 [facility] Immature granulocytes/100 WBC (Bld) 0.200 % 0.0-0.9 [facility] Comment on above: IG% - Immature Granu locytes (promyelocytes, myelocytes and metamyelocytes) > 1% indicates that a LEFT SHIFT is Present. MCH (RBC) [Entitic mass] 30.7 pg 27.0-32.0 [facility] Nucleated RBC/100 WBC (Bld) [Ratio] 0 % 0-5 [facility] MCHC Auto (RBC) [Mass/Vol]Or dered By: David Best on 10-07-2023 MCHC (RBC) [Mass/Vol] 31.7 g/dL 32-36 [facility] No Panel InformationOrdered By: David Best on 10-07-2023 Estimated Creatinine Clearance Calc 44.64 ml/min [facility] Estimated GFR (MDRD) Amer 59 mL/min >60 [facility] Comment on above: GFR Calc Estimated GFR (MDRD) Non-Af Amer 49 mL/min >60 [facility] Comment on above: Non- GFR Calc Troponin I High Sensitivity 8 pg/mL 3.0-54.0 [facility] Comment on above: Please Note: New Nasrin t Units and Gender Specific Reference Ranges. For more information see Policy Stat Procedure [place] High Sensitivity Troponin (TNIH) and attachments. Platelets bldOrdered By: Jefferson megan Best on 10-07-2023 Platelets (Bld) [#/Vol] 153 10*3/uL 150-450 [facility] Serum or plasma calcium loco urement (mass/volume)Ordered By: David Best on 10-07-2023 Calcium [Mass/Vol] 9.2 mg/dL 8.5-10.1 [facility] Serum or plasma creatinine m easurement (mass/volume)Ordered By: David Best on 10-07-2023 Creatinine [Mass/Vol] 1.17 mg/dL 0.55-1.02 [facility] Comment on above: The validity of the calculated GFR & GFRAA in patients over 70 years has not been determined. Clinical correlation is essential. Serum or plasma urea nitroge n measurement (mass/volume)Ordered By: David Best on 10-07-2023 Urea nitrogen [Mass/Vol] 27 mg/dL 7-18 [facility] Thin prep Papanicolaou smear with manual screeningOrdered By: David Best on 10-07-2023 Thin prep Papanicolaou smear with manual screening 6 5-15 [facility] Absolute lymphocyte countOrd ered By: Alonso Marte on 10-02-2023 Lymphocytes Auto (Unsp spec) [#/Vol] 2.34 10*3/uL 0.83-4.51 [facility] Basophil percentageOrdered B y: Alonso Marte on 10-02-2023 Basophils/100 WBC (Bld) 0.7 % 0-1 [facility] Chloride [Moles/Vol] 110 mmol/L 98-107 [facility] Eosinophils/100 WBC (Bld) 2.1 % 0-5 [facility] Glucose [Mass/Vol] 154 mg/dL 74-106 [facility] Comment on above: Fasting Glucose resu lt greater than or equal to 126 mg/dL suggests DIABETES MELLITUS per A.D.A. criteria. Neutrophils (Bld) [#/Vol] 2.4 10*3/uL 2.0-7.7 [facility] Neutrophils/100 WBC (Bld) 45.6 % 47-70 [facility] Potassium [Moles/Vol] 3.7 mmol/L 3.5-5.1 [facility] Sodium [Moles/Vol] 140 mmol/L 136-145 [facility] WBC (Bld) [#/Vol] 5.4 10*3/uL 4.4-11.0 [facility] Blood erythrocytes count (nu mber/volume)Ordered By: Alonso Marte on 10-02-2023 RBC (Bld) [#/Vol] 3.88 10*6/uL 4.2-5.4 [facility] Blood hemoglobin measurement (mass/volume)Ordered By: Alonso Marte on 10-02-2023 Hemoglobin (Bld) [Mass/Vol] 11.8 g/dL 12.0-15.0 [facility] Blood lymphocytes/100 leukoc ytesOrdered By: Alonso Marte on 10-02-2023 Lymphocytes/100 WBC (Bld) 43.7 % 19-41 [facility] Blood monocytes/100 leukocyt esOrdered By: Alonso Marte on 10-02-2023 Monocytes/100 WBC (Bld) 7.7 % 0-10 [facility] Blood platelet mean volumeOr dered By: Alonso Marte on 10-02-2023 Platelet mean volume (Bld) [Entitic vol] 11.4 fL 6.2-12.0 [facility] Determination of erythrocyte mean corpuscular volume (MCV)Ordered By: Alonso Marte on 10-02-2023 MCV (RBC) [Entitic vol] 96.6 fL 81-99 [facility] Hematocrit Auto (Bld) [Volum e fraction]Ordered By: Alosno Marte on 10-02-2023 Hematocrit (Bld) [Volume fraction] 37.5 % 37-47 [facility] Laboratory - Chemistry and C hemistry - challengeOrdered By: Alonso Marte on 10-02-2023 CO2 [Moles/Vol] 28.0 mmol/L 21.0-32.0 [facility] Urea nitrogen/Creatinine [Mass ratio] 17.6 mg/mg 10-20 [facility] Laboratory - Hematology and Cell countsOrdered By: Alonso Marte 10-02-2023 Erythrocyte distribution width (RBC) [Entitic vol] 47.2 fL 35.1-43.9 [facility] Erythrocyte distribution width (RBC) [Ratio] 13.3 % 11.6-14.6 [facility] Immature granulocytes/100 WBC (Bld) 0.200 % 0.0-0.9 [facility] Comment on above: IG% - Immature Granu locytes (promyelocytes, myelocytes and metamyelocytes) > 1% indicates that a LEFT SHIFT is Present. MCH (RBC) [Entitic mass] 30.4 pg 27.0-32.0 [facility] Nucleated RBC/100 WBC (Bld) [Ratio] 0 % 0-5 [facility] MCHC Auto (RBC) [Mass/Vol]Or dered By: Alonso Marte on 10-02-2023 MCHC (RBC) [Mass/Vol] 31.5 g/dL 32-36 [facility] No Panel InformationOrdered By: Alonso Marte on 10-02-2023 Estimated Creatinine Clearance Calc 52.60 ml/min [facility] Estimated GFR (MDRD) Amer 73 mL/min >60 [facility] Comment on above: GFR Calc Estimated GFR (MDRD) Non-Af Amer 61 mL/min >60 [facility] Comment on above: Non- GFR Calc Platelets bldOrdered By: Alonso Marte on 10-02-2023 Platelets (Bld) [#/Vol] 136 10*3/uL 150-450 [facility] Serum or plasma calcium looc urement (mass/volume)Ordered By: Alonso Marte on 10-02-2023 Calcium [Mass/Vol] 9.0 mg/dL 8.5-10.1 [facility] Serum or plasma creatinine m easurement (mass/volume)Ordered By: Alonso Marte on 10-02-2023 Creatinine [Mass/Vol] 0.96 mg/dL 0.55-1.02 [facility] Comment on above: The validity of the calculated GFR & GFRAA in patients over 70 years has not been determined. Clinical correlation is essential. Serum or plasma urea nitroge n measurement (mass/volume)Ordered By: Alonso Marte on 10-02-2023 Urea nitrogen [Mass/Vol] 17 mg/dL 7-18 [facility] Thin prep Papanicolaou smear with manual screeningOrdered By: Alonso Marte on 10-02-2023 Thin prep Papanicolaou smear with manual screening 2 5-15 [facility] Glucose Glucometer (BldC) [M ass/Vol]Ordered By: Ben Johnson on 10-01-2023 Glucose [Mass/Vol] 182 mg/dL 74-106 [facility] Comment on above: MANAGEMENT OF PATIEN T CARE PER NURSING PROTOCOL Basophil percentageOrdered B y: Tony Mejia on 09-29-2023 Cholesterol [Mass/Vol] 106 mg/dL <200 [facility] Comment on above: <200 mg/dL Desirable 200-240 mg/dL Borderline >240 mg/dL High Risk Triglyceride [Mass/Vol] 145 mg/dL <199 [facility] Comment on above: The drugs N-Acetylcy steine and Metamizole may falsely depress this assay.Serum Triglycerides Reference Interval Normal <150 mg/dL Borderline high 150 - 199 mg/dL High 200 - 499 mg/dL Very High > or = 500 mg/dL Serum or plasma cholesterol in HDL measurement (mass/volume)Ordered By: Tony Mejia on 09-29-2023 Cholesterol in HDL [Mass/Vol] 41 mg/dL >40 [facility] Comment on above: The drugs N-Acetylcy steine and Metamizole may falsely depress this assay. Reference Range HDL <40 mg/dL Low HDL Cholesterol HDL >or= 60 mg/dL High HDL Cholesterol Serum or plasma cholesterol in VLDL measurement (mass/volume)Ordered By: Tony Mejia on 09-29-2023 Cholesterol in VLDL [Mass/Vol] 29 mg/dL 5-40 [facility] Serum or plasma low density lipoprotein (LDL) cholesterol measurement (mass/volume)Ordered By: Tony Mejia on 09-29-2023 Cholesterol in LDL [Mass/Vol] 36 mg/dL 0-130 [facility] Absolute lymphocyte countOrd ered By: Uday Orosco on 09-28-2023 Lymphocytes Auto (Unsp spec) [#/Vol] 3.61 10*3/uL 0.83-4.51 [facility] Basophil percentageOrdered B y: Uday Orosco on 09-28-2023 Basophil percentage 0 SEEN /hpf 0-5 [facility] Basophils/100 WBC (Bld) 0.6 % 0-1 [facility] Chloride [Moles/Vol] 106 mmol/L 98-107 [facility] Eosinophils/100 WBC (Bld) 1.0 % 0-5 [facility] Glucose [Mass/Vol] 159 mg/dL 74-106 [facility] Comment on above: Fasting Glucose resu lt greater than or equal to 126 mg/dL suggests DIABETES MELLITUS per A.D.A. criteria. Neutrophils (Bld) [#/Vol] 3.0 10*3/uL 2.0-7.7 [facility] Neutrophils/100 WBC (Bld) 40.8 % 47-70 [facility] Potassium [Moles/Vol] 3.9 mmol/L 3.5-5.1 [facility] Sodium [Moles/Vol] 140 mmol/L 136-145 [facility] WBC (Bld) [#/Vol] 7.3 10*3/uL 4.4-11.0 [facility] Bilirubin Test strip Ql (U)O rdered By: Uday Orosco on 09-28-2023 Bilirubin Ql (U) Negative Negative [facility] Blood erythrocytes count (nu mber/volume)Ordered By: Uday Orosco on 09-28-2023 RBC (Bld) [#/Vol] 4.14 10*6/uL 4.2-5.4 [facility] Blood hemoglobin measurement (mass/volume)Ordered By: Uday Orosco on 09-28-2023 Hemoglobin (Bld) [Mass/Vol] 12.5 g/dL 12.0-15.0 [facility] Blood lymphocytes/100 leukoc ytesOrdered By: Uday Orosco on 09-28-2023 Lymphocytes/100 WBC (Bld) 49.7 % 19-41 [facility] Blood monocytes/100 leukocyt esOrdered By: Uday Orosco on 09-28-2023 Monocytes/100 WBC (Bld) 7.6 % 0-10 [facility] Blood platelet mean volumeOr dered By: Uday Orosco on 09-28-2023 Platelet mean volume (Bld) [Entitic vol] 11.1 fL 6.2-12.0 [facility] Determination of erythrocyte mean corpuscular volume (MCV)Ordered By: Uday Orosco on 09-28-2023 MCV (RBC) [Entitic vol] 95.7 fL 81-99 [facility] Hematocrit Auto (Bld) [Volum e fraction]Ordered By: Uday Orosco on 09-28-2023 Hematocrit (Bld) [Volume fraction] 39.6 % 37-47 [facility] INR in Blood by Coagulation assayOrdered By: Uday Orosco on 09-28-2023 INR Coag (Bld) [Relative time] 1.0 {INR} [facility] Ketones Test strip Ql (U)Ord ered By: Uday Orosco on 09-28-2023 Ketones Ql (U) Negative Negative [facility] Laboratory - Chemistry and C hemistry - challengeOrdered By: Uday Orosco on 09-28-2023 CO2 [Moles/Vol] 28.0 mmol/L 21.0-32.0 [facility] Urea nitrogen/Creatinine [Mass ratio] 24.5 mg/mg 10-20 [facility] Laboratory - CoagulationOrde red By: Uday Orosco on 09-28-2023 aPTT Coag (Bld) [Time] 24.8 s 24.1-36.2 [facility] Coag (PPP) [Time] 12.7 s 11.7-14.9 [facility] Laboratory - Hematology and Cell countsOrdered By: Uday Orosco on 09-28-2023 Erythrocyte distribution width (RBC) [Entitic vol] 47.4 fL 35.1-43.9 [facility] Erythrocyte distribution width (RBC) [Ratio] 13.3 % 11.6-14.6 [facility] Immature granulocytes/100 WBC (Bld) 0.300 % 0.0-0.9 [facility] Comment on above: IG% - Immature Granu locytes (promyelocytes, myelocytes and metamyelocytes) > 1% indicates that a LEFT SHIFT is Present. MCH (RBC) [Entitic mass] 30.2 pg 27.0-32.0 [facility] Nucleated RBC/100 WBC (Bld) [Ratio] 0 % 0-5 [facility] MCHC Auto (RBC) [Mass/Vol]Or dered By: Uday Orosco on 09-28-2023 MCHC (RBC) [Mass/Vol] 31.6 g/dL 32-36 [facility] Mucus LM Ql (Urine sed)Order ed By: Uday Orosco on 09-28-2023 Mucus Ql (Urine sed) 0 SEEN /hpf [facility] Nitrite Test strip Ql (U)Ord ered By: Uday Orosco on 09-28-2023 Nitrite Ql (U) Negative Negative [facility] No Panel InformationOrdered By: Uday Orosco on 09-28-2023 Estimated Creatinine Clearance Calc 46.28 ml/min [facility] Estimated GFR (MDRD) Amer 63 mL/min >60 [facility] Comment on above: GFR Calc Estimated GFR (MDRD) Non-Af Amer 52 mL/min >60 [facility] Comment on above: Non- GFR Calc Troponin I High Sensitivity 7 pg/mL 3.0-54.0 [facility] Comment on above: Please Note: New Nasrin t Units and Gender Specific Reference Ranges. For more information see Policy Stat Procedure [place] High Sensitivity Troponin (TNIH) and attachments. No Panel InformationOrdered By: Tony Mejia on 09-28-2023 Thyroid Stimulating Hormone (TSH) 2.94 uIU/mL 0.358-3.74 [facility] Platelets bldOrdered By: Chad Orosco on 09-28-2023 Platelets (Bld) [#/Vol] 157 10*3/uL 150-450 [facility] Protein Test strip Ql (U)Ord ered By: Uday Orosco on 09-28-2023 Protein Ql (U) Negative Negative [facility] Serum or plasma calcium loco urement (mass/volume)Ordered By: Uday Orosco on 09-28-2023 Calcium [Mass/Vol] 9.7 mg/dL 8.5-10.1 [facility] Serum or plasma creatinine m easurement (mass/volume)Ordered By: Uday Orosco on 09-28-2023 Creatinine [Mass/Vol] 1.10 mg/dL 0.55-1.02 [facility] Comment on above: The validity of the calculated GFR & GFRAA in patients over 70 years has not been determined. Clinical correlation is essential. Serum or plasma urea nitroge n measurement (mass/volume)Ordered By: Uday Orosco on 09-28-2023 Urea nitrogen [Mass/Vol] 27 mg/dL 7-18 [facility] Squamous epithelial cells de tection in urine sediment by light microscopyOrdered By: Uday Orosco on 09-28-2023 Epithelial cells.squamous LM Ql (Urine sed) 0 SEEN /hpf 5-10 [facility] Thin prep Papanicolaou smear with manual screeningOrdered By: Uday Orosco on 09-28-2023 Thin prep Papanicolaou smear with manual screening 6 5-15 [facility] Urine blood detectionOrdered By: Uday Orosco on 09-28-2023 RBC Ql (U) Negative Negative [facility] RBC Ql (U) 0 SEEN /hpf 0-5 [facility] Urine clarityOrdered By: Chad Orosco on 09-28-2023 Clarity (U) Clear Clear [facility] Urine color determinationOrd ered By: Uday Orosco on 09-28-2023 Color (U) Yellow Yellow [facility] Urine glucose detectionOrder ed By: Uday Orosco on 09-28-2023 Glucose Ql (U) 1000 mg/dl Normal [facility] Urine leukocyte esterase det ection by dipstickOrdered By: Uday Orosco on 09-28-2023 Leukocyte esterase Test strip Ql (U) 25 /ul Negative [facility] Urine pHOrdered By: Uday cai on 09-28-2023 pH (U) 8.0 [pH] 5.0 - 8.0 [facility] Urine sediment bacteria coun t by microscopy (number/high power field)Ordered By: Uday Orosco on 09-28-2023 Bacteria LM.HPF (Urine sed) [#/Area] 0 /[HPF] None Seen [facility] Urine specific gravity measu rementOrdered By: Uday Orosco on 09-28-2023 Specific gravity (U) [Rel density] 1.010 1.002-1.03 0 [facility] Urobilinogen Auto test strip Ql (U)Ordered By: Uday Orosco on 09-28-2023 Urobilinogen Ql (U) Normal mg/dl Normal [facility] .GFRon 09-07-2023 GFR 47 ml/min/1.73sqm Normal [facility] ([place]) Comment on above: Result Comment: GFR [...] By: #### Reginaldo SKELTON, CRE ####[address] [place], [place] [address] GFR Non- 39 ml/min/1.73sqm Normal [facility] ([place]) Comment on above: Result Comment: GFR Population [...] By: #### Reginaldo SKELTON, CRE ####[address] [place], [place] [address] CREon 09-07-2023 Creatinine [Mass/Vol] 1.35 mg/dL High 0.55-1.02 [facility] ([place]) Comment on above: Performed By: #### Reginaldo SKELTON, CRE ####[address] [place], [place] [address] CT ABD/PELVIS W/ IV CONTRAST ONLYon 09-07-2023 [...] Date: 09/07/2023 10:17:27 AM Ordering Provider: ADRIENNE Bassett [facility] ([place]) LABORATORYOrdered By: SYSTEM SYSTEM on 09-07-2023 Creatinine [...] 09/01/2023 8:23:28 AM Ordering Provider: ADRIENNE Bassett [facility] ([place]) ANCAon 07-19-2023 C-ANCA 1.1 Normal 0.0-20.0 [facility] ([place]) Comment on above: Result Comment: NEW REFERENCE RANGES FOR ANCA BY EIA: NEGATIVE <= 20 UNITS WEAK POSITIVE 21 - 30 UNITS MOD. TO STRONG POSITIVE > 30 UNITS A positive result indicates the presence of KS-3 antibodies and suggests the possibility of certain autoimmune vasculitides such as Naida?s granulomatosis. A negative result indicates no KS-3 antibody or levels below the negative cut-off of the assay. These results were obtained with the [employer] QUANTA Lite KS-3 IgG EDNA. KS-3 values obtained with different manufacturers? assay methods may not be used interchangeably. The magnitude of the reported IgG level cannot be correlated to an endpoint titer. Results of this assay should be used in conjunction with clinical findings. Performed By: #### L IPID, FERR, GFR, ANEU, CBC, TSH, CMP, ADIFF, A1C, VIDH #### [place] [address] Cytoplasmic Neutro. Ab. See Below Normal [facility] ([place]) Comment on above: Performed By: #### L IPID, FERR, GFR, ANEU, CBC, TSH, CMP, ADIFF, A1C, VIDH #### [place] [address] P-ANCA 10.8 Normal 0.0-20.0 [facility] ([place] Comment on above: Result Comment: REFE RENCE [...] assay. These results were obtained with the [employer] QUANTA Lite MPO IgG EDNA. MPO values obtained with different manufacturers? assay methods may not be used interchangeably. The magnitude of the reported IgG level cannot be correlated to an endpoint titer. Results of this assay should be used in conjunction with clinical findings. Performed By: #### L IPID, FERR, GFR, ANEU, CBC, TSH, CMP, ADIFF, A1C, VIDH #### [address] [address] RFon 07-15-2023 Rheumatoid Factor <6.0 Normal <=5.9 [facility] ([place]) Comment on above: Result Comment: RF I [...] tests. These results were obtained with the [employer] QUANTA Lite RF IgM EDNA. RF IgM values obtained with different manufacturers' assay methods may not be used interchangeably. The magnitude of the reported IgM levels cannot be correlated to an endpoint titer. Performed By: #### C RE, GFR #### [address] [address] ANAon 07-14-2023 Nuclear Ab IF (S) [Titer] 40 {titer} Normal Neg 40 [facility] ([place]) Comment on above: Result Comment: AZALEA Screen and Titer methodology is an immunofluorescent technique utilizing Hep2 Substrate. Performed By: #### C RE, GFR #### [place] [address] .Auto Diffon 07-13-2023 Basophil, Absolute 0.0 10 3/mcL Normal 0.0-0.2 [facility] ([place]) Comment on above: Performed By: #### C RE, GFR #### [address] [address] Basophils/100 WBC (Bld) 0.3 % Normal 0.0-2.5 [facility] ([place]) Comment on above: Performed By: #### C RE, GFR #### [address] [address] Eosinophil, Absolute 0.1 10 3/mcL Normal 0.0-0.4 [facility] ([place]) Comment on above: Performed By: #### C RE, GFR #### [address] [address] Eosinophils/100 WBC (Bld) 1.1 % Normal 0.0-7.0 [facility] ([place] Comment on above: Performed By: #### C RE, GFR #### [address] [address] Lymphocyte, Absolute 2.2 10 3/mcL Normal 0.8-3.9 [facility] ([place]) Comment on above: Performed By: #### C RE, GFR #### [address] [address] Lymphocytes/100 WBC (Bld) 28.8 % Normal 10.0-50.0 [facility] ([place]) Comment on above: Performed By: #### C RE, GFR #### [address] [address] Monocyte, Absolute 0.5 10 3/mcL Normal 0.2-1.0 [facility] ([place] Comment on above: Performed By: #### C RE, GFR #### [address] [address] Monocytes/100 WBC (Bld) 7.0 % Normal 1.7-13.0 [facility] ([place]) Comment on above: Performed By: #### C RE, GFR #### [address] [address] Neutrophils/100 WBC (Bld) 62.8 % Normal 37.0-80.0 [facility] ([place]) Comment on above: Performed By: #### C RE, GFR #### [address] [address] .GFRon 07-13-2023 GFR Non- 37 ml/min/1.73sqm Normal [facility] ([place]) Comment on above: Result Comment: GFR Population [...] Performed By: #### C RE, GFR #### [address] [address] GFR 45 ml/min/1.73sqm Normal [facility] ([place]) Comment on above: Result Comment: GFR Population [...] Performed By: #### C RE, GFR #### [address] [address] .NEUABSon 07-13-2023 Neutrophil, Absolute 4.8 10 3/mcL Normal 2.9-6.2 [facility] ([place]) Comment on above: Performed By: #### C RE, GFR #### [address] [address] B12on 07-13-2023 Cobalamin (Vitamin B12) [Mass/Vol] 1078 pg/mL High 211-911 [facility] ([place]) Comment on above: Performed By: #### C RE, GFR #### [address] [address] CBCon 07-13-2023 Erythrocyte distribution width (RBC) [Ratio] 14.5 % Normal 11.5-14.5 [facility] ([place]) Comment on above: Performed By: #### C RE, GFR #### [address] [address] Hematocrit (Bld) [Volume fraction] 37.6 % Normal 37.0-47.0 [facility] ([place]) Comment on above: Performed By: #### C RE, GFR #### [address] [address] Hgb 12.5 G/dL Normal 12.0-16.0 [facility] ([place] Comment on above: Performed By: #### C RE, GFR #### [address] [address] MCH (RBC) [Entitic mass] 30.0 pg Normal 27.0-31.2 [facility] ([place]) Comment on above: Performed By: #### C RE, GFR #### [address] [address] MCHC 33.2 G/dL Normal 33.0-37.0 [facility] ([place] Comment on above: Performed By: #### C RE, GFR #### [address] [address] MCV (RBC) [Entitic vol] 90.4 fL Normal 80.0-94.0 [facility] ([place]) Comment on above: Performed By: #### C RE, GFR #### [address] [address] Platelet 181 10 3/mcL Normal 130-400 [facility] ([place]) Comment on above: Performed By: #### C RE, GFR #### [address] [address] Platelet mean volume (Bld) [Entitic vol] 8.9 fL Normal 7.4-10.4 [facility] ([place]) Comment on above: Performed By: #### C RE, GFR #### [address] [address] RBC 4.16 10 6/mcL Low 4.20-5.40 [facility] ([place] Comment on above: Performed By: #### C RE, GFR #### [address] [address] WBC 7.7 10 3/mcL Normal 4.6-10.8 [facility] ([place]) Comment on above: Performed By: #### C RE, GFR #### [address] [address] CKon 07-13-2023 CK [Catalytic activity/Vol] 36 U/L Normal 26-192 [facility] ([place]) Comment on above: Performed By: #### C RE, GFR #### [address] [address] CMPon 07-13-2023 Albumin Level 3.7 G/dL Normal 3.4-4.8 [facility] ([place]) Comment on above: Performed By: #### C RE, GFR #### [address] [address] Albumin/Globulin [Mass ratio] 1.0 {ratio} Low 1.1-2.5 [facility] ([place]) Comment on above: Performed By: #### C RE, GFR #### [address] [address] ALP [Catalytic activity/Vol] 76 U/L Normal 40-135 [facility] ([place]) Comment on above: Performed By: #### C RE, GFR #### [address] [address] ALT [Catalytic activity/Vol] 17 U/L Normal 14-59 [facility] ([place]) Comment on above: Performed By: #### C RE, GFR #### [address] [address] AST [Catalytic activity/Vol] 15 U/L Normal 10-40 [facility] ([place]) Comment on above: Performed By: #### C RE, GFR #### [address] [address] Bili Total 0.3 mg/dL Normal 0.2-1.0 [facility] ([place]) Comment on above: Result Comment: Use of this assay is not recommended for patients undergoing treatment with eltrombopag due to the potential for falsely elevated results. Performed By: #### C RE, GFR #### [address] [address] BUN/Creatinine Ratio 20 ratio Normal 7-27 [facility] ([place] Comment on above: Performed By: #### C RE, GFR #### [address] [address] Calcium [Mass/Vol] 8.9 mg/dL Normal 8.4-10.2 [facility] ([place]) Comment on above: Performed By: #### C RE, GFR #### [address] [address] Chloride [Moles/Vol] 104 mmol/L Normal 98-107 [facility] ([place] Comment on above: Performed By: #### C RE, GFR #### [address] [address] CO2 [Moles/Vol] 30 mmol/L Normal 23-31 [facility] ([place]) Comment on above: Performed By: #### C RE, GFR #### [address] [address] Creatinine [Mass/Vol] 1.40 mg/dL High 0.55-1.02 [facility] ([place]) Comment on above: Performed By: #### C RE, GFR #### [address] [address] Electrolyte Balance 11.0 mEq/L Normal 4.0-15.0 [facility] ([place]) Comment on above: Performed By: #### C RE, GFR #### [address] [address] Globulin 3.6 G/dL Normal [facility] ([place]) Comment on above: Performed By: #### C RE, GFR #### [address] [address] Glucose [Mass/Vol] 205 mg/dL High 83-110 [facility] ([place]) Comment on above: Performed By: #### C RE, GFR #### [address] [address] Potassium [Moles/Vol] 4.6 mmol/L Normal 3.5-5.1 [facility] ([place] Comment on above: Performed By: #### C RE, GFR #### [address] [address] Sodium [Moles/Vol] 145 mmol/L Normal 136-145 [facility] ([place]) Comment on above: Performed By: #### C RE, GFR #### [address] [address] Total Protein 7.3 G/dL Normal 6.4-8.2 [facility] ([place]) Comment on above: Performed By: #### C RE, GFR #### [address] [address] Urea nitrogen [Mass/Vol] 28 mg/dL High 7-18 [facility] ([place] Comment on above: Performed By: #### C RE, GFR #### [address] [address] CRPon 07-13-2023 C-Reactive Protein 2.1 mg/dL High 0.0-0.3 [facility] ([place]) Comment on above: Performed By: #### C RE, GFR #### [address] [address] ESRon 07-13-2023 Erythrocyte Sed Rate 27 mm/hr Normal 0-30 [facility] ([place]) Comment on above: Performed By: #### C RE, GFR #### [address] [address] FOLon 07-13-2023 Folate >48.00 High 5.38-24.00 [facility] ([place]) Comment on above: Performed By: #### C RE, GFR #### [address] [address] FT4on 07-13-2023 Free T4 [Mass/Vol] 0.97 ng/dL Normal 0.76-1.46 [facility] ([place]) Comment on above: Performed By: #### C RE, GFR #### [address] [address] LIPIDon 07-13-2023 Cholesterol [Mass/Vol] 115 mg/dL Normal 0-200 [facility] ([place]) Comment on above: Result Comment: Chol esterol Reference Interval: Less than 200 Desirable 200-239 Borderline high risk 240 and above High risk Performed By: #### C RE, GFR #### [address] [address] Cholesterol in HDL [Mass/Vol] 42 mg/dL Normal 40-60 [facility] ([place] Comment on above: Performed By: #### C RE, GFR #### [address] [address] Cholesterol in LDL [Mass/Vol] 49 mg/dL Normal 0-130 [facility] ([place] Comment on above: Performed By: #### C RE, GFR #### [address] [address] Triglyceride [Mass/Vol] 120 mg/dL Normal 0-150 [facility] ([place]) Comment on above: Result Comment: Trig lyceride Reference Interval: Less than 150 Normal 150-199 Borderline high risk 200-499 High risk 500 or higher Very high risk Performed By: #### C RE, GFR #### [address] [address] PTHon 07-13-2023 PTH, Intact 60.7 pg/mL Normal 18.5-88.0 [facility] ([place]) Comment on above: Performed By: #### C RE, GFR #### [address] [address] TSHon 07-13-2023 TSH Qn 1.67 m[IU]/L Normal 0.36-3.74 [facility] ([place]) Comment on above: Performed By: #### C RE, GFR #### [address] [address] VIDHon 07-13-2023 Vit. D 25-Hydroxy 54.1 ng/mL Normal [facility] ([place]) Comment on above: Result Comment: Inte rpretive Values Based on Total 25(OH) Vitamin D: Deficient <20 ng/mL Insufficient 20 - <30 ng/mL Sufficient 30-100 ng/mL Performed By: #### C RE, GFR #### [facility] [address] [place], [place] [address] .GFRon 06-09-2023 GFR 44 ml/min/1.73sqm Normal [facility] ([place]) Comment on above: Result Comment: GFR Population [...] 15 mL/min/1.73 square meters Performed By: #### AUGUSTO OLSEN, BMP ####[address] [place], [place] [address] GFR Non- 37 ml/min/1.73sqm Normal [facility] ([place]) Comment on above: Result Comment: GFR Population [...] square meters Performed By: #### Reginaldo SKELTON, PBNP, BMP ####[address] [place], [place] [address] BMPon 06-09-2023 BUN/Creatinine Ratio 23 ratio Normal 7-27 [facility] ([place]) Comment on above: Performed By: #### Reginaldo SKELTON, PBNP, BMP ####[address] [place], [place] [address] Calcium [Mass/Vol] 9.3 mg/dL Normal 8.4-10.2 [facility] ([place]) Comment on above: Performed By: #### AUGUSTO OLSEN, MEDINA ####[address] [place], [place] [address] Chloride [Moles/Vol] 102 mmol/L Normal 98-107 [facility] ([place]) Comment on above: Performed By: #### AUGUSTO OLSEN, BMP ####[address] [place], [place] [address] CO2 [Moles/Vol] 28 mmol/L Normal 23-31 [facility] ([place] Comment on above: Performed By: #### AUGUSTO OLSEN, BMP ####[address] [place], [place] [address] Creatinine [Mass/Vol] 1.42 mg/dL High 0.55-1.02 [facility] ([place] Comment on above: Performed By: #### AUGUSTO OLSEN, BMP ####[address] [place], [place] [address] Electrolyte Balance 10.0 mEq/L Normal 4.0-15.0 [facility] ([place]) Comment on above: Performed By: #### AUGUSTO OLSEN, BMP ####[address] [place], [place] [address] Glucose [Mass/Vol] 239 mg/dL High 83-110 [facility] ([place]) Comment on above: Performed By: #### AUGUSTO OLSEN, BMP ####[address] [place], [place] [address] Potassium [Moles/Vol] 4.3 mmol/L Normal 3.5-5.1 [facility] ([place] Comment on above: Performed By: #### AUGUSTO OLSEN, BMP ####[address] [place], [place] [address] Sodium [Moles/Vol] 140 mmol/L Normal 136-145 [facility] ([place]) Comment on above: Performed By: #### G AUGUSTO SKELTON BMP ####[address] [place], [place] [address] Urea nitrogen [Mass/Vol] 33 mg/dL High 7-18 [facility] ([place] Comment on above: Performed By: #### G AUGUSTO SKELTON BMP ####[address] [place], [place] [address] LABORATORYOrdered By: SYSTEM SYSTEM on 06-09-2023 Calcium [...] B (Bld) [Mass/Vol] 588 pg/mL High 0-125 [facility] ([place] Comment on above: Result Comment: NT-p roBNP results of less than 300 pg/mL effectively rules out acute congestive heart failure with 99% negative predictive value. Performed By: #### G FR, PBNP, [facility] ####[address] [place] [address] LABORATORYOrdered By: SYSTEM SYSTEM on 12-10-2022 Calcium [...] Mixed growth consistent with normal urogenital demarco. [facility] Work Phone: LABORATORYOrdered By: SYSTEM SYSTEM [...] Code AH Auto Viro/Sero SS B. parapertussis [id number] DNA ENRIQUE+non-probe Ql (Nph) Not Detected *NA* [...] 3.5 - 5.0 mEq/L AH ADM SS Protein [Mass/Vol] 7.4 G/dL Invalid [...] Informationon 08-19 Culture Urine Culture results pending. [facility] Work Phone: Microscopic examination of blood, culture Culture has been received in lab and is no growth to date. Routine cultures are held for 5 days. [facility] Work Phone: LABORATORYOrdered By: Ju Griffin [...] 2.5 % AH Workflow SS Bilirubin [Mass/Vol] 0.50 mg/dL Invalid [...] AH ADM SS Urea nitrogen/Creatinine [Mass ratio] 16.9 ratio Invalid Interpretation Code 10.0 - 22.0 ratio AH ADM SS WBC 12.4 103/mcL Invalid Interpretation [...] Routine cultures are held for 5 days. [facility] Work Phone: LABORATORYOrdered By: Geoffrey Tellez [...] the ages of 18-89 years. LABORATORYOrdered By: Zopa SYSTEM on 03-24-2022 Cortisol [Mass/Vol] 25.0 ug/dL [...] 27 ratio AO ADM SS LABORATORYOrdered By: Zopa SYSTEM on 01-03-2022 GFR 57 ml/min/1.73sqm Invalid [...] Code AO Chemistry S LABORATORYOrdered By: Nick Bhatt on 12-25-2021 Blood Glucose Testing Reason Routine (12/25/21 10:58 AM) [facility] Work Phone: Glucose [Mass/Vol] 159 mg/dL Invalid Interpretation Code 82 - 115 mg/dL [facility] Work Phone: Blood Glucose Testing Reason Routine (12/25/21 6:53 AM) [facility] Work Phone: Glucose [Mass/Vol] 112 mg/dL Invalid Interpretation Code 82 - 115 mg/dL [facility] Work Phone: LABORATORYOrdered By: Zopa SYSTEM on 12-25-2021 Base excess Calc (BldMV) [...] Glucose Testing Reason Routine (12/24/21 9:09 PM) [facility] Work Phone: Glucose [Mass/Vol] 151 mg/dL Invalid Interpretation Code 82 - 115 mg/dL [facility] Work Phone: LABORATORYOrdered By: SYSTEM SYSTEM [...] % AH Remisol SS Hemoglobin (Bld) [Mass/Vol] 10.8 G/dL [...] Remisol SS Natriuretic peptide.B prohormone N-Terminal [Mass/Vol] [address] pg/mL Invalid Interpretation Code 0 - 900 [...] 27 ratio AO ADM SS LABORATORYOrdered By: Zopa SYSTEM on 12-09-2021 GFR 68 ml/min/1.73sqm Invalid Interpretation Code AO Chemistry S GFR Non- 56 ml/min/1.73sqm Invalid Interpretation Code AO Chemistry S LABORATORYOrdered By: Ivania Lott on 12-05-2021 Glucose [Mass/Vol] 169 mg/dL Invalid Interpretation Code 82 - 115 mg/dL [facility] Work Phone: Blood Glucose Testing Reason Routine (12/05/21 8:07 AM) [facility] Work Phone: Glucose [Mass/Vol] 160 mg/dL Invalid Interpretation Code 82 - 115 mg/dL [facility] Work Phone: LABORATORYOrdered By: SYSTEM SYSTEM [...] Glucose Testing Reason Routine (12/04/21 9:52 PM) [facility] Work Phone: Glucose [Mass/Vol] 112 mg/dL Invalid Interpretation Code 82 - 115 mg/dL [facility] [facility] Work Phone: LABORATORYOrdered By: Sanford Stlies on 12-04-2021 Blood Glucose Testing Reason Routine (12/04/21 4:08 PM) [facility] Work Phone: LABORATORYOrdered By: Zopa SYSTEM on 12-04-2021 Anisocytosis Ql (Bld) Slight [...] mg/dL ADM SS Hematocrit (Bld) [Volume fraction] 31.0 [...] 15.0 mEq/L ADM SS Eosinophils (Bld) [#/Vol] 0.10 103/mcL [...] 46.0 % Remisol SS Hemoglobin (Bld) [Mass/Vol] 10.4 G/dL [...] AH Auto Urine SS Color (U) Yellow (1/9/22 12:52 PM) Invalid Interpretation Code AH Auto [...] Blood Culture: No Growth at 5 days. [facility] Work Phone: LABORATORYOrdered By: SYSTEM SYSTEM on 11-28-2021 Cortisol [Mass/Vol] 34.6 ug/dL Invalid Interpretation Code 6.5 - 26.0 mcg/dL AH ADM SS Cortisol [Mass/Vol] 27.6 ug/dL Invalid Interpretation Code 6.5 - 26.0 mcg/dL AH ADM SS Cortisol [Mass/Vol] 4.8 ug/dL Invalid Interpretation Code 6.5 - 26.0 mcg/dL AH ADM SS LABORATORYOrdered By: Tnoy Rothman on 11-27-2021 ABO and Rh group Nom (Bld) Blood group A Rh(D) negative Invalid Interpretation Code AH BB Auto SS Blood group antibody screen Ql NEG (11/27/21 12:53 PM) Invalid Interpretation Code AH BB Auto SS Direct antiglobulin test.IgG specific reagent Ql (RBC) NEG (11/27/21 12:53 PM) Invalid Interpretation Code AH BB Auto SS LABORATORYOrdered By: Zopa SYSTEM on 11-27-2021 CRP [Mass/Vol] 5.2 mg/dL [...] IN A CONGREGATE CARE SETTING:FIND:PT:^JARETH NT:ORD: No (11/27/21 12:42 PM) Invalid Interpretation [...] Blood Culture: No Growth at 5 days. [facility] Work Phone: Culture Urine No growth at 48 hours. [facility] Work Phone: LABORATORYOrdered By: Yanna navarrete [...] AH Auto Chem SS HCO3 (Bld) [Moles/Vol] 29.8 [...] Coccidioides Ab, IgG 0.2 Invalid Interpretation Code [facility] Comment on above: Result Comment: [...] Coccidioides Ab, IgM 0.1 Invalid Interpretation Code [facility] Comment on above: Result Comment: [...] represented in the EDNA tests. Performed By: [facility] [address] [place] [id number] Senior Solutions Engineer: Nicolette Bolton MD LABORATORYOrdered By: Blue Perch on 11-22-2021 Natriuretic peptide.B prohormone N-Terminal [Mass/Vol] [...] - 8.5 G/dL ADM SS LABORATORYOrdered By: Tanya Skinner on [...] Comment on above: Result Comment: [place] [id number] FLU B PCR Negative 5 (11/22/21 6:28 AM) Invalid Interpretation Code Negative AH Auto Viro/Sero SS Comment on above: Result Comment: [place] [id number] Hospitalized Yes (11/22/21 6:28 AM) Invalid Interpretation [...] Comment on above: Result Comment: [place] [id number] SARS-CoV-2 (COVID-19) RNA ENRIQUE+probe Ql (Unsp spec) Negative 3 (11/22/21 6:28 AM) Invalid Interpretation Code Negative AH Auto Viro/Sero SS Comment on above: Result Comment: [place] [id number] Symptomatic as Defined by CDC Yes (11/22/21 [...] respiratory demarco present. Sensitivity testing not indicated. [facility] Work Phone: Comment on above: Requests for Mycopla sma, Legionella, Fungi, Mycobacteria, Chlamydia, and Viruses require ordering of those individual tests. GS Rare Epithelial cell s Rare Polymorphonuclear cells No organisms seen. [facility] Work Phone: Comment on above: Requests for Mycopla sma, Legionella, Fungi, Mycobacteria, Chlamydia, and Viruses require ordering of those individual tests. Culture Urine No growth at 48 hours. [facility] Work Phone: Legionella Urine Ag Presumptive negative for L. pneumophila serogroup 1 antigen in urine, suggesting no recent or current infection. Legionnaire's disease cannot be ruled out since other serogroups and species may also cause disease. [facility] Work Phone: Streptococcus Pneumoniae Urine Antig Presumptive negative for pneumococcal pneumonia, suggesting no current or recent pneumococcal infection. Infection due to Strep pneumoniae cannot be ruled out since the antigen present in the sample may be below the detection limit of the test. [facility] Work Phone: Comment on above: This test has not be en evaluated on patients taking antibiotics for greater than 24 hours or on patients who have recently completed an antibiotic regimen. The accuracy of this test has not been proven in young children. Microscopic examination of blood, culture Blood Culture: No Growth at 5 days. [facility] Work Phone: LABORATORYOrdered By: Ellie Alfonso [...] SURGICAL PATHOLOGYon 020 SURGICAL PATHOLOGY Specimen #: [id number] Submitting Physician: RADHA WEIR M.D. FINAL [...] biopsy - Actinic keratosis. - Stasis changes. Adriano 04/10/2020 Celi Bennett M.D. (Electronic Signature) SPECIMEN [...] in one cassette. Gross examination performed at [facility], [address] [place] [address] JT 04/09/2020 10:54:28 PM Date of Report: 04/10/2020 Date of Procedure: 04/09/2020 Date of Receipt: 04/09/2020 Submitted by: RADHA WEIR M.D. Location: Diagnostic interpretation performed at [facility], [address] [place] [address]. CLIA Number: [id number] Normal [facility] Comment on above: Performed By: #### S #### See report for performing lab information. SURGICAL PATHOLOGYon 020 SURGICAL PATHOLOGY Specimen #: [id number] Submitting Physician: DIPTI GONZALEZ FINAL DIAGNOSIS A. Skin, right shoulder, shave biopsy - Basal cell carcinoma, superficial type, see comment. SDB/lbtawana 01/17/2020 COMMENT The histologic features are compatible [...] in one cassette. Gross examination performed at [facility], [address] [place] [address] 01/16/2020 11:35:43 PM Date of Report: 01/17/2020 Date of Procedure: 01/16/2020 Date of Receipt: 01/16/2020 Submitted by: DIPTI GONZALEZ Location: Diagnostic interpretation performed at [place] [address]. CLIA Number: [id number] Normal [facility] Comment on above: Performed By: #### S #### See report for performing lab information. Vital Signs Date Time Vital Sign Value Performing Clinician Facility 06-11-2025 09:06-0400 Body temperature 98.1 [degF] Dr. Marci Lopez DO Work Phone: [facility] 06-11-2025 09:06-0400 Diastolic blood pressure 63 mm[Hg] Dr. Marci Lopez DO Work Phone: [facility] 06-11-2025 09:06-0400 Heart rate 77 /min Dr. Marci Lopez DO Work Phone: [facility] 06-11-2025 09:06-0400 Respiratory rate 18 /min Dr. Marci Lopez DO Work Phone: [facility] 06-11-2025 09:06-0400 SaO2% (BldA) [Mass fraction] 98 % Dr. Marci Lopez DO Work Phone: [facility] 06-11-2025 09:06-0400 Systolic blood pressure 113 mm[Hg] Dr. Marci Lopez DO Work Phone: [facility] 06-11-2025 08:00-0400 Inhaled oxygen flow rate 2 L/min Dr. Marci Lopez DO Work Phone: [facility] 06-07-2025 13:19-0400 Body height 172.[address] Marci Lopez DO Work Phone: [facility] 06-07-2025 13:19-0400 Body mass index (BMI) [Ratio] 19.5 kg/m2 Dr. Marci Lopez DO Work Phone: [facility] 06-07-2025 13:19-0400 Body weight 58.[address] Marci Lopez DO Work Phone: [facility] 06-02-2025 14:09-0400 Inhaled oxygen flow rate 2 L/min Dr. Marci Lopez DO Work Phone: [facility] 06-02-2025 14:09-0400 SaO2% (BldA) [Mass fraction] 97 % Dr. Marci Lopez DO Work Phone: [facility] 06-02-2025 14:00-0400 Body temperature 98.4 [degF] Dr. Marci Lopez DO Work Phone: [facility] 06-02-2025 14:00-0400 Diastolic blood pressure 53 mm[Hg] Dr. Marci Lopez DO Work Phone: [facility] 06-02-2025 14:00-0400 Heart rate 69 /min Dr. Marci Lopez DO Work Phone: [facility] 06-02-2025 14:00-0400 Respiratory rate 12 /min Dr. Marci Lopez DO Work Phone: [facility] 06-02-2025 14:00-0400 Systolic blood pressure 106 mm[Hg] Dr. Marci Lopez DO Work Phone: [facility] 06-02-2025 10:33-0400 Body height 172.[address] Marci Lopez DO Work Phone: [facility] 06-02-2025 10:33-0400 Body mass index (BMI) [Ratio] 20.5 kg/m2 Dr. Marci Lopez DO Work Phone: [facility] 06-02-2025 10:33-0400 Body weight 61.[address] Marci Lopez DO Work Phone: [facility] 05-29-2025 15:17-0400 Body height 172.[address] Marci Lopez DO Work Phone: [facility] 05-29-2025 15:17-0400 Body mass index (BMI) [Ratio] 19.9 kg/m2 Dr. Marci Lopez DO Work Phone: [facility] 05-29-2025 15:17-0400 Body weight 59.[address] Marci Lopez DO Work Phone: [facility] 05-29-2025 15:17-0400 Diastolic blood pressure 57 mm[Hg] Dr. Marci Lopez DO Work Phone: [facility] 05-29-2025 15:17-0400 Heart rate 80 /min Dr. Marci Lopez DO Work Phone: [facility] 05-29-2025 15:17-0400 Respiratory rate 18 /min Dr. Marci Lopez DO Work Phone: [facility] 05-29-2025 15:17-0400 Systolic blood pressure 99 mm[Hg] Dr. Marci Lopez DO Work Phone: [facility] 05-22-2025 20:53-0400 Body temperature 98.5 [degF] Dr. Marci Lopez DO Work Phone: [facility] 05-22-2025 20:53-0400 Diastolic blood pressure 56 mm[Hg] Dr. Marci Lopez DO Work Phone: [facility] 05-22-2025 20:53-0400 Heart rate 69 /min Dr. Marci Lopez DO Work Phone: [facility] 05-22-2025 20:53-0400 Respiratory rate 16 /min Dr. Marci Lopez DO Work Phone: [facility] 05-22-2025 20:53-0400 SaO2% (BldA) [Mass fraction] 94 % Dr. Marci Lopez DO Work Phone: [facility] 05-22-2025 20:53-0400 Systolic blood pressure 111 mm[Hg] Dr. Marci Lopez DO Work Phone: [facility] 05-22-2025 19:08-0400 Inhaled oxygen flow rate 2 L/min Dr. Marci Lopez DO Work Phone: [facility] 05-22-2025 14:39-0400 Body height 172.[address] Marci Lopez DO Work Phone: [facility] 05-22-2025 14:39-0400 Body mass index (BMI) [Ratio] 21.1 kg/m2 Dr. Marci Lopez DO Work Phone: [facility] 05-22-2025 14:39-0400 Body weight 62.[address] Marci Lopez DO Work Phone: [facility] 05-03-2025 10:08-0400 Heart rate 66 /min Dr. Marci Lopez DO Work Phone: [facility] 05-03-2025 10:07-0400 Diastolic blood pressure 59 mm[Hg] Dr. Marci Lopez DO Work Phone: [facility] 05-03-2025 10:07-0400 Systolic blood pressure 112 mm[Hg] Dr. Marci Lopez DO Work Phone: [facility] 05-03-2025 08:22-0400 Body temperature 98.4 [degF] Dr. Marci Lopez DO Work Phone: [facility] 05-03-2025 08:22-0400 Respiratory rate 16 /min Dr. Marci Lopez DO Work Phone: [facility] 05-03-2025 08:22-0400 SaO2% (BldA) [Mass fraction] 94 % Dr. Marci Lopez DO Work Phone: [facility] 05-01-2025 14:36-0400 Body mass index (BMI) [Ratio] 20.6 kg/m2 Dr. Marci Lopez DO Work Phone: [facility] 05-01-2025 14:36-0400 Body weight 61.[address] Marci Lopez DO Work Phone: [facility] 04-25-2025 20:00-0400 Heart rate 64 /min Dr. Marci Lopez DO Work Phone: [facility] 04-25-2025 16:36-0400 Body mass index (BMI) [Ratio] 20.4 kg/m2 Dr. Marci Lopez DO Work Phone: [facility] 04-25-2025 16:36-0400 Body weight 60.[address] Marci Lopez DO Work Phone: [facility] 04-25-2025 15:10-0400 Body height 172.[address] Marci Lopez DO Work Phone: [facility] 04-25-2025 09:01-0400 Body temperature 97.9 [degF] Dr. Marci Lopez DO Work Phone: [facility] 04-25-2025 09:01-0400 Diastolic blood pressure 51 mm[Hg] Dr. Marci Lopez DO Work Phone: [facility] 04-25-2025 09:01-0400 Respiratory rate 16 /min Dr. Marci Lopez DO Work Phone: [facility] 04-25-2025 09:01-0400 Systolic blood pressure 111 mm[Hg] Dr. Marci Lopez DO Work Phone: [facility] 04-25-2025 08:14-0400 Body temperature 97.4 [degF] Dr. Marci Lopez DO Work Phone: [facility] 04-25-2025 08:14-0400 Diastolic blood pressure 57 mm[Hg] Dr. Marci Lopez DO Work Phone: [facility] 04-25-2025 08:14-0400 Heart rate 63 /min Dr. Marci Lopez DO Work Phone: [facility] 04-25-2025 08:14-0400 Respiratory rate 14 /min Dr. Marci Lopez DO Work Phone: [facility] 04-25-2025 08:14-0400 SaO2% (BldA) [Mass fraction] 94 % Dr. Marci Lopez DO Work Phone: [facility] 04-25-2025 08:14-0400 Systolic blood pressure 108 mm[Hg] Dr. Marci Lopez DO Work Phone: [facility] 04-25-2025 06:48-0400 Body mass index (BMI) [Ratio] 45 kg/m2 Dr. Marci Lopez DO Work Phone: [facility] 04-25-2025 06:48-0400 Body weight 134.[address] Marci Lopez DO Work Phone: [facility] 04-20-2025 14:41-0400 Body temperature 98.7 [degF] Dr. Marci Lopez DO Work Phone: [facility] 04-20-2025 14:41-0400 Diastolic blood pressure 57 mm[Hg] Dr. Marci Lopez DO Work Phone: [facility] 04-20-2025 14:41-0400 Heart rate 60 /min Dr. Marci Lopez DO Work Phone: [facility] 04-20-2025 14:41-0400 Respiratory rate 16 /min Dr. Marci Lopez DO Work Phone: [facility] 04-20-2025 14:41-0400 SaO2% (BldA) [Mass fraction] 97 % Dr. Marci Lopez DO Work Phone: [facility] 04-20-2025 14:41-0400 Systolic blood pressure 136 mm[Hg] Dr. Marci Lopez DO Work Phone: [facility] 04-19-2025 13:18-0400 Body height 172.[address] Marci Lopez DO Work Phone: 4(440)[phone] [place] [address] 04-19-2025 13:18-0400 Body mass index (BMI) [Ratio] 20.7 kg/m2 Dr. Marci Lopez DO Work Phone: 3(324)[phone] [place] [address] 04-19-2025 13:18-0400 Body weight [address] Marci Lopez DO Work Phone: 6(111)[phone] [place] [address] 04-19-2025 12:00-0400 Diastolic blood pressure 75 mm[Hg] Dr. Marci Lopez DO Work Phone: [facility] 04-19-2025 12:00-0400 Heart rate 77 /min Dr. Marci Lopez DO Work Phone: [facility] 04-19-2025 12:00-0400 Respiratory rate 18 /min Dr. Marci Lopez DO Work Phone: [facility] 04-19-2025 12:00-0400 SaO2% (BldA) [Mass fraction] 96 % Dr. Marci Lopez DO Work Phone: [facility] 04-19-2025 12:00-0400 Systolic blood pressure 174 mm[Hg] Dr. Marci Lopez DO Work Phone: [facility] 04-19-2025 11:30-0400 Body temperature 98 [degF] Dr. Marci Lopez DO Work Phone: [facility] 04-19-2025 03:35-0400 Body height 172.[address] Marci Lopez DO Work Phone: [facility] 04-19-2025 03:35-0400 Body mass index (BMI) [Ratio] 21.6 kg/m2 Dr. Marci Lopez DO Work Phone: [facility] 04-19-2025 03:35-0400 Body weight 64.[address] Marci Lopez DO Work Phone: [facility] 04-04-2025 12:35-0400 Diastolic blood pressure 47 mm[Hg] Mri (1.5t) [facility] 04-04-2025 12:35-0400 Heart rate 90 /min Mri (1.5t) [facility] Comment on above: pacer taken out of MRI safe mode 04-04-2025 12:35-0400 Respiratory rate 18 /min Mri (1.5t) [facility] 04-04-2025 12:35-0400 SaO2% (BldA) [Mass fraction] 98 % Mri (1.5t) [facility] 04-04-2025 12:35-0400 Systolic blood pressure 125 mm[Hg] Mri (1.5t) [facility] 03-10-2025 14:00-0400 Diastolic blood pressure 70 mm[Hg] Dr. Marci Lopez DO Work Phone: [facility] 03-10-2025 14:00-0400 Heart rate 60 /min Dr. Marci Lopez DO Work Phone: [facility] 03-10-2025 14:00-0400 Respiratory rate 18 /min Dr. Marci Lopez DO Work Phone: [facility] 03-10-2025 14:00-0400 SaO2% (BldA) [Mass fraction] 97 % Dr. Marci Lopez DO Work Phone: [facility] 03-10-2025 14:00-0400 Systolic blood pressure 151 mm[Hg] Dr. Marci Lopez DO Work Phone: [facility] 03-10-2025 11:28-0400 Body mass index (BMI) [Ratio] 20.9 kg/m2 Dr. Marci Lopez DO Work Phone: [facility] 03-10-2025 11:28-0400 Body weight 62.[address] Marci Lopez DO Work Phone: [facility] 03-10-2025 11:27-0400 Body height 172.[address] Marci Lopez DO Work Phone: [facility] 03-10-2025 11:27-0400 Body temperature 97.8 [degF] Dr. Marci Lopez DO Work Phone: [facility] 02-27-2025 15:22-0400 Body mass index (BMI) [Ratio] 20.78 kg/m2 Leyla Murphy MD Work Phone: [facility] 02-27-2025 15:22-0400 Body weight 62 kg Leyla Murphy MD Work Phone: [facility] 02-27-2025 15:22-0400 SaO2% (BldA) [Mass fraction] 96 % Leyla Murphy MD Work Phone: [facility] 02-13-2025 09:10-0400 Body mass index (BMI) [Ratio] 20.7 kg/m2 Dr. Marci Lopez DO Work Phone: [facility] 02-13-2025 09:10-0400 Body weight 61.[address] Marci Lopez DO Work Phone: [facility] 02-13-2025 09:10-0400 Diastolic blood pressure 67 mm[Hg] Dr. Marci Lopez DO Work Phone: [facility] 02-13-2025 09:10-0400 Systolic blood pressure 107 mm[Hg] Dr. Marci Lopez DO Work Phone: [facility] 01-23-2025 13:16-0500 Body temperature 97.3 [degF] Dr. Marci Lopez DO Work Phone: [facility] 01-23-2025 13:16-0500 Diastolic blood pressure 66 mm[Hg] Dr. Marci Lopez DO Work Phone: [facility] 01-23-2025 13:16-0500 Heart rate 62 /min Dr. Marci Lopez DO Work Phone: [facility] 01-23-2025 13:16-0500 Respiratory rate 16 /min Dr. Marci Lopez DO Work Phone: [facility] 01-23-2025 13:16-0500 SaO2% (BldA) [Mass fraction] 95 % Dr. Marci Lopez DO Work Phone: [facility] 01-23-2025 13:16-0500 Systolic blood pressure 121 mm[Hg] Dr. Marci Lopez DO Work Phone: [facility] 01-18-2025 08:06-0500 Body mass index (BMI) [Ratio] 20 kg/m2 Dr. Marci Lopez DO Work Phone: [facility] 01-18-2025 08:06-0500 Body weight 59.[address] Marci Lopez DO Work Phone: [facility] 01-18-2025 08:06-0500 Diastolic blood pressure 73 mm[Hg] Dr. Marci Lopez DO Work Phone: [facility] 01-18-2025 08:06-0500 Heart rate 97 /min Dr. Marci Lopez DO Work Phone: [facility] 01-18-2025 08:06-0500 Respiratory rate 18 /min Dr. Marci Lopez DO Work Phone: [facility] 01-18-2025 08:06-0500 SaO2% (BldA) [Mass fraction] 97 % Dr. Marci Lopez DO Work Phone: [facility] 01-18-2025 08:06-0500 Systolic blood pressure 114 mm[Hg] Dr. Marci Lopez DO Work Phone: [facility] 12-22-2024 11:30-0500 Diastolic blood pressure 75 mm[Hg] Dr. Marci Lopez DO Work Phone: [facility] 12-22-2024 11:30-0500 Heart rate 85 /min Dr. Marci Lopez DO Work Phone: [facility] 12-22-2024 11:30-0500 Respiratory rate 16 /min Dr. Marci Lopez DO Work Phone: [facility] 12-22-2024 11:30-0500 SaO2% (BldA) [Mass fraction] 99 % Dr. Marci Lopez DO Work Phone: [facility] 12-22-2024 11:30-0500 Systolic blood pressure 117 mm[Hg] Dr. Marci Lopez DO Work Phone: [facility] 12-19-2024 15:14-0500 Body temperature 98 [degF] Dr. Marci Lopez DO Work Phone: [facility] 12-19-2024 15:14-0500 Body weight 60.[address] Marci Lopez DO Work Phone: [facility] 12-19-2024 15:14-0500 Diastolic blood pressure 67 mm[Hg] Dr. Marci Lopez DO Work Phone: [facility] 12-19-2024 15:14-0500 Heart rate 74 /min Dr. Marci Lopez DO Work Phone: [facility] 12-19-2024 15:14-0500 Respiratory rate 16 /min Dr. Marci Lopez DO Work Phone: [facility] 12-19-2024 15:14-0500 SaO2% (BldA) [Mass fraction] 96 % Dr. Marci Lopez DO Work Phone: [facility] 12-19-2024 15:14-0500 Systolic blood pressure 123 mm[Hg] Dr. Marci Lopez DO Work Phone: [facility] 11-28-2024 13:54-0500 Body mass index (BMI) [Ratio] 20 kg/m2 Dr. Marci Lopez DO Work Phone: [facility] 11-28-2024 13:54-0500 Body weight 59.[address] Marci Lopez DO Work Phone: [facility] 11-28-2024 13:54-0500 Diastolic blood pressure 57 mm[Hg] Dr. Marci Lopez DO Work Phone: [facility] 11-28-2024 13:54-0500 Heart rate 85 /min Dr. Marci Lopez DO Work Phone: [facility] 11-28-2024 13:54-0500 Respiratory rate 18 /min Dr. Marci Lopez DO Work Phone: [facility] 11-28-2024 13:54-0500 SaO2% (BldA) [Mass fraction] 96 % Dr. Marci Lopez DO Work Phone: [facility] 11-28-2024 13:54-0500 Systolic blood pressure 92 mm[Hg] Dr. Marci Lopez DO Work Phone: [facility] 11-18-2024 17:16-0500 Body temperature 98.7 [degF] Dr. Marci Lopez DO Work Phone: [facility] 11-18-2024 17:16-0500 Heart rate 62 /min Dr. Marci Lopez DO Work Phone: [facility] 11-18-2024 17:16-0500 Respiratory rate 18 /min Dr. Marci Lopez DO Work Phone: [facility] 11-18-2024 17:16-0500 SaO2% (BldA) [Mass fraction] 97 % Dr. Marci Lopez DO Work Phone: [facility] 11-18-2024 14:20-0500 Diastolic blood pressure 74 mm[Hg] Dr. Marci Lopez DO Work Phone: [facility] 11-18-2024 14:20-0500 Systolic blood pressure 122 mm[Hg] Dr. Marci Lopez DO Work Phone: [facility] 08-01-2024 15:26-0400 Body weight 59.[address] Marci Lopez DO Work Phone: [facility] 05-17-2024 14:39-0400 Body height 172.7 cm Ghazala Gusman MD Work Phone: [facility] 05-17-2024 14:39-0400 Body mass index (BMI) [Ratio] 19.52 kg/m2 Ghazala Gusman MD Work Phone: [facility] 05-17-2024 14:39-0400 Body weight 58.24 kg Ghazala Gusman MD Work Phone: [facility] 05-17-2024 14:39-0400 Diastolic blood pressure 58 mm[Hg] Ghazala Gusman MD Work Phone: [facility] 05-17-2024 14:39-0400 Heart rate 72 /min Ghazala Gusman MD Work Phone: [facility] 05-17-2024 14:39-0400 SaO2% (BldA) [Mass fraction] 97 % Ghazala Gusman MD Work Phone: [facility] 05-17-2024 14:39-0400 Systolic blood pressure 95 mm[Hg] Ghazala Gusman MD Work Phone: [facility] 03-15-2024 09:18-0400 Heart rate 62 /min Dr. Adrienne Byers Work Phone: [facility] 03-15-2024 09:12-0400 Body temperature 97.7 [degF] Dr. Adrienne Byers Work Phone: [facility] 03-15-2024 09:12-0400 Diastolic blood pressure 50 mm[Hg] Dr. Adrienne Byers Work Phone: [facility] 03-15-2024 09:12-0400 Respiratory rate 16 /min Dr. Adrienne Byers Work Phone: [facility] 03-15-2024 09:12-0400 SaO2% (BldA) [Mass fraction] 96 % Dr. Adrienne Byers Work Phone: [facility] 03-15-2024 09:12-0400 Systolic blood pressure 122 mm[Hg] Dr. Adrienne Byers Work Phone: [facility] 03-14-2024 14:00-0400 Body mass index (BMI) [Ratio] 19.8 kg/m2 Dr. Adrienne Byers Work Phone: [facility] 03-14-2024 14:00-0400 Body weight 59.[address] Adrienne Byers Work Phone: [facility] 03-08-2024 12:02-0400 Body height 172.[address] Adrienne Byers Work Phone: [facility] 02-29-2024 09:30-0400 Body temperature 98.5 [degF] Dr. Adrienne Byers Work Phone: [facility] 02-29-2024 09:30-0400 Diastolic blood pressure 63 mm[Hg] Dr. Adrienne Byers Work Phone: [facility] 02-29-2024 09:30-0400 Heart rate 73 /min Dr. Adrienne Byers Work Phone: [facility] 02-29-2024 09:30-0400 Respiratory rate 16 /min Dr. Adrienne Byers Work Phone: [facility] 02-29-2024 09:30-0400 SaO2% (BldA) [Mass fraction] 95 % Dr. Adrienne Byers Work Phone: [facility] 02-29-2024 09:30-0400 Systolic blood pressure 118 mm[Hg] Dr. Adrienne Byers Work Phone: [facility] 02-26-2024 22:00-0400 Inhaled oxygen flow rate 2 L/min Dr. Adrienne Byers Work Phone: [facility] 02-25-2024 13:30-0400 Body height 172.[address] Adrienne Byers Work Phone: [facility] 02-25-2024 13:30-0400 Body weight 58.[address] Adrienne Byers Work Phone: [facility] 02-22-2024 11:00-0400 Body mass index (BMI) [Ratio] 19.5 kg/m2 Dr. Adrienne Byers Work Phone: [facility] 02-21-2024 19:53-0400 Body temperature 98.2 [degF] Dr. Adrienne Byers Work Phone: [facility] 02-21-2024 19:53-0400 Diastolic blood pressure 45 mm[Hg] Dr. Adrienne Byers Work Phone: [facility] 02-21-2024 19:53-0400 Heart rate 66 /min Dr. Adrienne Byers Work Phone: [facility] 02-21-2024 19:53-0400 Respiratory rate 20 /min Dr. Adrienne Byers Work Phone: [facility] 02-21-2024 19:53-0400 SaO2% (BldA) [Mass fraction] 97 % Dr. Adrienne Byers Work Phone: [facility] 02-21-2024 19:53-0400 Systolic blood pressure 105 mm[Hg] Dr. Adrienne Byers Work Phone: [facility] 02-21-2024 15:33-0400 Body mass index (BMI) [Ratio] 20.2 kg/m2 Dr. Adrienne Byers Work Phone: [facility] 02-21-2024 15:33-0400 Body weight 60.[address] Adrienne Byers Work Phone: [facility] 02-21-2024 15:32-0400 Body height 172.[address] Adrienne Byers Work Phone: [facility] 02-19-2024 18:33-0400 Body temperature 98.3 [degF] [facility] 02-19-2024 18:33-0400 Diastolic blood pressure 74 mm[Hg] [facility] 02-19-2024 18:33-0400 Heart rate 76 /min [facility] 02-19-2024 18:33-0400 Respiratory rate 16 /min [facility] 02-19-2024 18:33-0400 SaO2% (BldA) [Mass fraction] 96 % [facility] 02-19-2024 18:33-0400 Systolic blood pressure 127 mm[Hg] [facility] 02-19-2024 15:07-0400 Body height 172.72 cm [facility] 02-19-2024 15:07-0400 Body mass index (BMI) [Ratio] 19.8 kg/m2 [facility] 02-19-2024 15:07-0400 Body weight 59.23 kg [facility] 12-08-2023 18:27-0500 Diastolic blood pressure 66 mm[Hg] Dr. Adrienne Byers Work Phone: [facility] 12-08-2023 18:27-0500 Heart rate 77 /min Dr. Adrienne Byers Work Phone: [facility] 12-08-2023 18:27-0500 Respiratory rate 16 /min Dr. Adrienne Byers Work Phone: [facility] 12-08-2023 18:27-0500 SaO2% (BldA) [Mass fraction] 99 % Dr. Adrienne Byers Work Phone: [facility] 12-08-2023 18:27-0500 Systolic blood pressure 118 mm[Hg] Dr. Adrienne Byers Work Phone: [facility] 12-08-2023 15:46-0500 Body mass index (BMI) [Ratio] 20.7 kg/m2 Dr. Adrienne Byers Work Phone: [facility] 12-08-2023 15:46-0500 Body weight 61.[address] Adrienne Byers Work Phone: [facility] 12-08-2023 13:03-0500 Body height 172.[address] Adrienne Byers Work Phone: [facility] 12-08-2023 13:03-0500 Body temperature 96.7 [degF] Dr. Adrienne Byers Work Phone: [facility] 10-12-2023 13:31-0500 Body mass index (BMI) [Ratio] 21.1 kg/m2 Dr. Adrienne Byers Work Phone: [facility] 10-12-2023 08:40-0500 Body temperature 97.8 [degF] Dr. Adrienne Byers Work Phone: [facility] 10-12-2023 08:40-0500 Diastolic blood pressure 67 mm[Hg] Dr. Adrienne Byers Work Phone: [facility] 10-12-2023 08:40-0500 Heart rate 60 /min Dr. Adrienne Byers Work Phone: [facility] 10-12-2023 08:40-0500 Respiratory rate 14 /min Dr. Adrienne Byers Work Phone: [facility] 10-12-2023 08:40-0500 SaO2% (BldA) [Mass fraction] 100 % Dr. Adrienne Byers Work Phone: [facility] 10-12-2023 08:40-0500 Systolic blood pressure 143 mm[Hg] Dr. Adrienne Byers Work Phone: [facility] 10-12-2023 06:00-0500 Body weight 63.[address] Adrienne Byers Work Phone: [facility] 10-07-2023 15:14-0500 Body height 172.[address] Adrienne Byers Work Phone: [facility] 10-07-2023 15:04-0500 Diastolic blood pressure 93 mm[Hg] Dr. Adrienne Byers Work Phone: [facility] 10-07-2023 15:04-0500 Heart rate 61 /min Dr. Adrienne Byers Work Phone: [facility] 10-07-2023 15:04-0500 Respiratory rate 18 /min Dr. Adrienne Byers Work Phone: [facility] 10-07-2023 15:04-0500 SaO2% (BldA) [Mass fraction] 97 % Dr. Adrienne Byers Work Phone: [facility] 10-07-2023 15:04-0500 Systolic blood pressure 107 mm[Hg] Dr. Adrienne Byers Work Phone: [facility] 10-07-2023 13:04-0500 Body height 172.[address] Adrienne Byers Work Phone: [facility] 10-07-2023 13:04-0500 Body mass index (BMI) [Ratio] 21.2 kg/m2 Dr. Adrienne Byers Work Phone: [facility] 10-07-2023 13:04-0500 Body weight 63.[address] Adrienne Byers Work Phone: [facility] 10-07-2023 12:35-0500 Body temperature 97.8 [degF] Dr. Adrienne Byers Work Phone: [facility] 10-07-2023 09:42-0500 Diastolic blood pressure 47 mm[Hg] Dr. Adrienne Byers Work Phone: [facility] 10-07-2023 09:42-0500 Heart rate 75 /min Dr. Adrienne Byers Work Phone: [facility] 10-07-2023 09:42-0500 Systolic blood pressure 103 mm[Hg] Dr. Adrienne Byers Work Phone: [facility] 10-06-2023 16:00-0500 Body temperature 97.7 [degF] Dr. Adrienne Byers Work Phone: [facility] 10-06-2023 16:00-0500 Respiratory rate 14 /min Dr. Adrienne Byers Work Phone: [facility] 10-06-2023 16:00-0500 SaO2% (BldA) [Mass fraction] 97 % Dr. Adrienne Byers Work Phone: [facility] 10-06-2023 15:02-0500 Body weight 61.[address] Adrienne Byers Work Phone: [facility] 10-05-2023 11:08-0500 Body mass index (BMI) [Ratio] 20.5 kg/m2 Dr. Adrienne Byers Work Phone: [facility] 10-01-2023 14:27-0500 Body mass index (BMI) [Ratio] 20.8 kg/m2 Dr. Adrienne Byers Work Phone: [facility] 10-01-2023 13:40-0500 Body temperature 98.1 [degF] Dr. Adrienne Byers Work Phone: [facility] 10-01-2023 13:40-0500 Diastolic blood pressure 68 mm[Hg] Dr. Adrienne Byers Work Phone: [facility] 10-01-2023 13:40-0500 Heart rate 65 /min Dr. Adrienne Byers Work Phone: [facility] 10-01-2023 13:40-0500 Respiratory rate 18 /min Dr. Adrienne Byers Work Phone: [facility] 10-01-2023 13:40-0500 SaO2% (BldA) [Mass fraction] 97 % Dr. Adrienne Byers Work Phone: [facility] 10-01-2023 13:40-0500 Systolic blood pressure 138 mm[Hg] Dr. Adrienne Byers Work Phone: [facility] 09-29-2023 14:06-0500 Body height 170.[address] Adrienne Byers Work Phone: [facility] 09-29-2023 14:06-0500 Body weight 60.[address] Adrienne Byers Work Phone: [facility] 09-28-2023 22:00-0500 Diastolic blood pressure 77 mm[Hg] [facility] 09-28-2023 22:00-0500 Heart rate 63 /min [facility] 09-28-2023 22:00-0500 Respiratory rate 18 /min [facility] 09-28-2023 22:00-0500 SaO2% (BldA) [Mass fraction] 99 % [facility] 09-28-2023 22:00-0500 Systolic blood pressure 152 mm[Hg] [facility] 09-28-2023 20:41-0500 Body height 170.18 cm [facility] 09-28-2023 20:41-0500 Body mass index (BMI) [Ratio] 21.4 kg/m2 [facility] 09-28-2023 20:41-0500 Body weight 61.9 kg [facility] 09-28-2023 20:00-0500 Body temperature 98.1 [degF] [facility] 08-18-2023 12:08-0400 Body temperature 98.6 [degF] JAXON KUHN MD [facility] 08-18-2023 12:08-0400 Diastolic Blood Pressure Non-Invasive 63 1 JAXON KUHN MD [facility] 08-18-2023 12:08-0400 Heart rate 73 /min JAXON KUHN MD [facility] 08-18-2023 12:08-0400 Respiratory rate 16 /min JAXON KUHN MD [facility] 08-18-2023 12:08-0400 Systolic Blood Pressure Non-Invasive 94 1 JAXON KUHN MD [facility] 08-11-2023 06:42-0400 Body temperature 98.24 [degF] JAXON KHUN MD [facility] 08-11-2023 06:42-0400 Diastolic Blood Pressure Non-Invasive 61 1 JAXON KUHN MD [facility] 08-11-2023 06:42-0400 Heart rate 61 /min JAXON KUHN MD [facility] 08-11-2023 06:42-0400 Respiratory rate 18 /min JAXON KUHN MD [facility] 08-11-2023 06:42-0400 Systolic Blood Pressure Non-Invasive 106 1 JAXON KUHN MD [facility] 08-04-2023 12:09-0400 Body height 172.7 cm JAXON KUHN MD [facility] 08-04-2023 12:09-0400 Body temperature 98.6 [degF] JAXON KUHN MD [facility] 08-04-2023 12:09-0400 Body weight 63 kg JAXON KUHN MD [facility] 08-04-2023 12:09-0400 Diastolic Blood Pressure Non-Invasive 60 1 JAXON KUHN MD [facility] 08-04-2023 12:09-0400 Heart rate 60 /min JAXON KUHN MD [facility] 08-04-2023 12:09-0400 Respiratory rate 18 /min JAXON KUHN MD [facility] 08-04-2023 12:09-0400 Systolic Blood Pressure Non-Invasive 104 1 JAXON KUHN MD [facility] 05-12-2023 13:28-0400 Body height 172.7 cm Ghazala Gusman MD Work Phone: [facility] 05-12-2023 13:28-0400 Body weight 62.14 kg Ghazala Gusman MD Work Phone: [facility] 05-12-2023 13:28-0400 Diastolic blood pressure 57 mm[Hg] Ghazala Gusman MD Work Phone: [facility] 05-12-2023 13:28-0400 Heart rate 73 /min Ghazala Gusman MD Work Phone: [facility] 05-12-2023 13:28-0400 Respiratory rate 20 /min Ghazala Gusman MD Work Phone: [facility] 05-12-2023 13:28-0400 SaO2% (BldA) [Mass fraction] 97 % Ghazala Gusman MD Work Phone: [facility] 05-12-2023 13:28-0400 Systolic blood pressure 102 mm[Hg] Ghazala Gusman MD Work Phone: [facility] 08-20-2022 00:26-0400 Diastolic blood pressure 33 mm[Hg] DR AKIN SALGUERO DO [facility] 08-20-2022 00:26-0400 Heart rate 60 /min DR AKIN SALGUERO DO [facility] 08-20-2022 00:26-0400 Respiratory rate 16 /min DR AKIN SALGUERO DO [facility] 08-20-2022 00:26-0400 Systolic blood pressure 102 mm[Hg] DR AKIN SALGUERO DO [facility] 08-20-2022 00:09-0400 Diastolic blood pressure 33 mm[Hg] DR AKIN SALGUERO DO [facility] 08-20-2022 00:09-0400 Heart rate 60 /min DR AKIN SALGUERO DO [facility] 08-20-2022 00:09-0400 Reason For Taking VItal Signs DR AKIN SALGUERO DO [facility] 08-20-2022 00:09-0400 Respiratory rate 16 /min DR AKIN SALGUERO DO [facility] 08-20-2022 00:09-0400 Systolic blood pressure 102 mm[Hg] DR AKIN SALGUERO DO [facility] 08-19-2022 23:40-0400 Diastolic blood pressure 70 mm[Hg] DR AKIN SALGUERO DO [facility] 08-19-2022 23:40-0400 Heart rate 60 /min DR AKIN SALGUERO DO [facility] 08-19-2022 23:40-0400 Mean blood pressure 79 mm[Hg] DR AKIN SALGUERO DO [facility] 08-19-2022 23:40-0400 Respiratory rate 12 /min DR AKIN SALGUERO DO [facility] 08-19-2022 23:40-0400 Systolic blood pressure 96 mm[Hg] DR AKIN SALGUERO DO [facility] 08-19-2022 15:07-0400 Body temperature 98.78 [degF] DR AKIN SALGUERO DO [facility] 06-23-2022 15:16-0400 Body height 172.7 cm Sherif Ramirez MD Work Phone: [facility] 06-23-2022 15:16-0400 Body weight 65.32 kg Sherif Ramirez MD Work Phone: [facility] 06-23-2022 15:16-0400 Diastolic blood pressure 64 mm[Hg] Sherif Ramirez MD Work Phone: [facility] 06-23-2022 15:16-0400 Heart rate 75 /min Sherif Ramirez MD Work Phone: [facility] 06-23-2022 15:16-0400 SaO2% (BldA) [Mass fraction] 97 % Sherif Ramirez MD Work Phone: [facility] 06-23-2022 15:16-0400 Systolic blood pressure 116 mm[Hg] Sherif Ramirez MD Work Phone: [facility] 06-04-2022 13:42-0400 Diastolic blood pressure 67 mm[Hg] Ghazala Gusman MD Work Phone: [facility] 06-04-2022 13:42-0400 Heart rate 77 /min Ghazala Gusman MD Work Phone: [facility] 06-04-2022 13:42-0400 SaO2% (BldA) [Mass fraction] 98 % Ghazala Gusman MD Work Phone: [facility] 06-04-2022 13:42-0400 Systolic blood pressure 115 mm[Hg] Ghazala Gusman MD Work Phone: [facility] 05-22-2022 15:55-0400 Diastolic blood pressure 60 mm[Hg] NOREEN HICKS MD [facility] 05-22-2022 15:55-0400 Heart rate 60 /min NOREEN HICKS MD [facility] 05-22-2022 15:55-0400 Respiratory rate 16 /min NOREEN HICKS MD [facility] 05-22-2022 15:55-0400 Systolic blood pressure 130 mm[Hg] NOREEN HICKS MD [facility] 05-22-2022 15:45-0400 Diastolic blood pressure 60 mm[Hg] NOREEN HICKS MD [facility] 05-22-2022 15:45-0400 Heart rate 60 /min NOREEN HICKS MD [address] 05-22-2022 15:45-0400 Respiratory rate 11 /min NOREEN HICKS MD [address] 05-22-2022 15:45-0400 Systolic blood pressure 130 mm[Hg] NOREEN HICKS MD [facility] 05-22-2022 15:30-0400 Diastolic blood pressure 50 mm[Hg] NOREEN HICKS MD [address] 05-22-2022 15:30-0400 Heart rate 60 /min NOREEN HICKS MD [address] [place] [address] 05-22-2022 15:30-0400 Respiratory rate 12 /min NOREEN HICKS MD [address] 05-22-2022 15:30-0400 Systolic blood pressure 135 mm[Hg] NOREEN HICKS MD [address] 05-22-2022 12:54-0400 Body weight 72.4 kg NOREEN HICKS MD [address] [place] [address] 05-22-2022 12:46-0400 Body temperature 100.22 [degF] NOREEN HICKS MD [facility] 05-22-2022 12:46-0400 Heart rate 89 /min NOREEN HICKS MD [facility] 04-25-2022 23:34-0400 Body temperature 98.24 [degF] [facility] 04-25-2022 23:34-0400 Diastolic blood pressure 66 mm[Hg] [facility] 04-25-2022 23:34-0400 Heart rate 71 /min [facility] 04-25-2022 23:34-0400 Systolic blood pressure 122 mm[Hg] [facility] 04-03-2022 15:58-0400 diastolic 56 mm[Hg] DR JAC CHRISTENSEN MD [facility] 04-03-2022 15:58-0400 Heart rate 53 /min DR JAC CHRISTENSEN MD [facility] 04-03-2022 15:58-0400 systolic 98 mm[Hg] DR JAC CHRISTENSEN MD [facility] 04-03-2022 14:50-0400 Body temperature 98.06 [degF] DR JAC CHRISTENSEN MD [facility] 04-03-2022 14:50-0400 diastolic 60 mm[Hg] DR JAC CHRISTENSEN MD [address] [place] [address] 04-03-2022 14:50-0400 Heart rate 62 /min DR JAC CHRISTENSEN MD [address] [place] [address] 04-03-2022 14:50-0400 Respiratory rate 18 /min DR JAC CHRISTENSEN MD [address] [place] [address] 04-03-2022 14:50-0400 systolic 105 mm[Hg] DR JAC CHRISTENSEN MD [address] [place] [address] 04-02-2022 16:13-0400 Diastolic blood pressure 56 mm[Hg] DR JAC CHRISTENSEN MD [address] [place] [address] 04-02-2022 16:13-0400 Heart rate 60 /min DR JAC CHRISTENSEN MD [address] 04-02-2022 16:13-0400 Mean blood pressure 72 mm[Hg] DR JAC CHRISTENSEN MD [address] 04-02-2022 16:13-0400 Respiratory rate 18 /min DR JAC CHRISTENSEN MD [address] [place] [address] 04-02-2022 16:13-0400 Systolic blood pressure 103 mm[Hg] DR JAC CHRISTENSEN MD [address] [place] [address] 04-02-2022 14:54-0400 diastolic 51 mm[Hg] DR JAC CHRISTENSEN MD [address] [place] [address] 04-02-2022 14:54-0400 Heart rate 67 /min DR JAC CHRISTENSEN MD [address] [place] [address] 04-02-2022 14:54-0400 Respiratory rate 18 /min DR JAC CHRISTENSEN MD [facility] 04-02-2022 14:54-0400 systolic 101 mm[Hg] DR JAC CHRISTENSEN MD [facility] 12-25-2021 16:07-0500 Body temperature 97.52 [degF] MITCHELL MARY MD [address] [place] [address] 12-25-2021 16:07-0500 Diastolic Blood Pressure NBP 46 1 MITCHELL MARY MD [address] [place] [address] 12-25-2021 16:07-0500 Heart rate 70 /min MITCHELL MARY MD [facility] 12-25-2021 16:07-0500 Mean blood pressure 58 mm[Hg] MITCHELL MARY MD [facility] 12-25-2021 16:07-0500 Reason For Taking VItal Signs MITCHELL MARY MD [facility] 12-25-2021 16:07-0500 Respiratory rate 16 /min MITCHELL MARY MD [facility] 12-25-2021 16:07-0500 Systolic Blood Pressure NBP 94 1 MITCHELL MARY MD [address] [place] [address] 12-25-2021 11:52-0500 Heart rate 75 /min MITCHELL MARY MD [facility] 12-25-2021 11:52-0500 Reason For Taking VItal Signs MITCHELL MARY MD [facility] 12-25-2021 11:43-0500 Heart rate 67 /min MITCHELL MARY MD [address] [place] [address] 12-25-2021 11:43-0500 Reason For Taking VItal Signs MITCHELL MARY MD [facility] 12-25-2021 10:58-0500 Body temperature 98.06 [degF] MITCHELL MARY MD [address] [place] [address] 12-25-2021 10:58-0500 Diastolic Blood Pressure NBP 52 1 MITCHELL MARY MD [address] [place] [address] 12-25-2021 10:58-0500 Systolic Blood Pressure NBP 115 1 MITCHELL MARY MD [address] [place] [address] 12-25-2021 08:44-0500 Heart rate 74 /min MITCHELL MARY MD [facility] 12-25-2021 06:53-0500 Body temperature 98.24 [degF] MITCHELL MARY MD [facility] 12-25-2021 06:53-0500 Diastolic Blood Pressure NBP 47 1 MITCHELL MARY MD [facility] 12-25-2021 06:53-0500 Systolic Blood Pressure NBP 118 1 MITCHELL MARY MD [address] [place] [address] 12-24-2021 23:39-0500 Mean blood pressure 67 mm[Hg] MITCHELL MARY MD [facility] 12-24-2021 23:10-0500 Body temperature 96.8 [degF] MITCHELL MARY MD [address] [place] [address] 12-24-2021 19:33-0500 Respiratory rate 20 /min MITCHELL MARY MD [address] [place] [address] 12-24-2021 18:43-0500 Diastolic blood pressure 54 mm[Hg] MITCHELL MARY MD [address] [place] [address] 12-24-2021 18:43-0500 Respiratory rate 20 /min MITCHELL MARY MD [facility] 12-24-2021 18:43-0500 Systolic blood pressure 110 mm[Hg] MITCHELL MARY MD [facility] 12-24-2021 14:39-0500 Diastolic blood pressure 58 mm[Hg] MITCHELL MARY MD [facility] 12-24-2021 14:39-0500 Systolic blood pressure 112 mm[Hg] MITCHELL MARY MD [facility] 12-24-2021 10:50-0500 Diastolic blood pressure 62 mm[Hg] MITCHELL MARY MD [address] [place] [address] 02-02-2022 10:50-0500 Systolic blood pressure 128 mm[Hg] MITCHELL MARY MD [address] [place] [address] 12-24-2021 08:09-0500 Heart rate 76 /min MITCHELL MARY MD [address] [place] [address] 12-24-2021 06:38-0500 Body temperature 97.52 [degF] MITCHELL MARY MD [address] [place] [address] 12-24-2021 04:49-0500 Body temperature 97.34 [degF] MITCHELL MARY MD [address] [place] [address] 12-24-2021 04:49-0500 Mean blood pressure 92 mm[Hg] MITCHELL MARY MD [address] [place] [address] 12-24-2021 02:11-0500 Body height 172.7 cm MITCHELL MARY MD [address] [place] [address] 12-24-2021 02:11-0500 Body weight 71.4 kg MITCHELL MARY MD [address] [place] [address] 12-24-2021 02:11-0500 Body weight 23.94 kg/m2 MITCHELL MARY MD [facility] 12-24-2021 02:10-0500 Body weight 71.4 kg MITCHELL MARY MD [address] [place] [address] 12-24-2021 01:58-0500 Mean blood pressure 116 mm[Hg] MITCHELL MARY MD [address] [place] [address] 12-23-2021 23:33-0500 Diastolic blood pressure 65 mm[Hg] CATHY FROMMELT DO [facility] 12-23-2021 23:33-0500 Heart rate 73 /min CATHY FROMMELT DO [facility] 12-23-2021 23:33-0500 Respiratory rate 24 /min CATHY FROMMELT DO [facility] 12-23-2021 23:33-0500 Systolic blood pressure 129 mm[Hg] CATHY FROMMELT DO [facility] 12-23-2021 23:00-0500 Diastolic blood pressure 96 mm[Hg] CATHY FROMMELT DO [facility] 12-23-2021 23:00-0500 Heart rate 75 /min CATHY FROMMELT DO [facility] 12-23-2021 23:00-0500 Respiratory rate 17 /min CATHY FROMMELT DO [facility] 12-23-2021 23:00-0500 Systolic blood pressure 136 mm[Hg] CATHY FROMMELT DO [facility] 12-23-2021 22:36-0500 Diastolic blood pressure 71 mm[Hg] CATHY FROMMELT DO [facility] 12-23-2021 22:36-0500 Heart rate 76 /min CATHY FROMMELT DO [facility] 12-23-2021 22:36-0500 Respiratory rate 24 /min CATHY MARQUEZ DO [facility] 12-23-2021 22:36-0500 Systolic blood pressure 137 mm[Hg] CATHY MARQUEZ DO [facility] 12-23-2021 19:16-0500 Body temperature 98.06 [degF] CATHY MARQUEZ DO [facility] 12-23-2021 19:16-0500 Heart rate 77 /min [facility] 12-05-2021 11:12-0500 Heart rate 66 /min MARTHA PILLAI MD [facility] 12-05-2021 10:59-0500 Body temperature 97.88 [degF] MARTHA PILLAI MD [facility] 12-05-2021 10:59-0500 Diastolic blood pressure 52 mm[Hg] MARTHA PILLAI MD [facility] 12-05-2021 10:59-0500 Heart rate 66 /min MARTHA PILLAI MD [facility] 12-05-2021 10:59-0500 Mean blood pressure 67 mm[Hg] MARTHA PILLAI MD [facility] 12-05-2021 10:59-0500 Systolic blood pressure 98 mm[Hg] MARTHA PILLAI MD [facility] 12-05-2021 08:51-0500 Heart rate 68 /min MARTHA PILLAI MD [facility] 12-05-2021 08:07-0500 Body temperature 97.34 [degF] MARTHA PILLAI MD [facility] 12-05-2021 08:07-0500 Diastolic blood pressure 56 mm[Hg] MARTHA PILLAI MD [facility] 12-05-2021 08:07-0500 Heart rate 63 /min MARTHA PILALI MD [facility] 12-05-2021 08:07-0500 Mean blood pressure 70 mm[Hg] MARTHA PILLAI MD [facility] 12-05-2021 08:07-0500 Reason For Taking VItal Signs MARTHA PILLAI MD [facility] 12-05-2021 08:07-0500 Respiratory rate 18 /min MARTHA PILLAI MD [facility] 12-05-2021 08:07-0500 Systolic blood pressure 98 mm[Hg] MARTHA PILLAI MD [facility] 12-05-2021 04:00-0500 Diastolic blood pressure 60 mm[Hg] MARTHA PILLAI MD [facility] 12-05-2021 04:00-0500 Mean blood pressure 71 mm[Hg] MARTHA PILLAI MD [facility] 12-05-2021 04:00-0500 Reason For Taking VItal Signs MARTHA PILLAI MD [facility] 12-05-2021 04:00-0500 Systolic blood pressure 94 mm[Hg] MARTHA PILLAI MD [facility] 12-04-2021 21:57-0500 Body temperature 98.24 [degF] MARTHA PILLAI MD [facility] 12-04-2021 21:57-0500 Reason For Taking VItal Signs MARTHA PILLAI MD [facility] 12-04-2021 21:57-0500 Respiratory rate 18 /min MARTHA PILLAI MD [facility] 12-04-2021 17:12-0500 Diastolic Blood Pressure NBP 44 1 MARTHA PILLAI MD [facility] 12-04-2021 17:12-0500 Mean blood pressure 60 mm[Hg] MARTHA PILLAI MD [facility] 12-04-2021 17:12-0500 Systolic Blood Pressure NBP 95 1 MARTHA PILLAI MD [facility] 12-04-2021 16:08-0500 Diastolic Blood Pressure NBP 47 1 MARTHA PILLAI MD [facility] 12-04-2021 16:08-0500 Systolic Blood Pressure NBP 100 1 MARTHA PILLAI MD [facility] 12-04-2021 02:01-0500 Diastolic Blood Pressure NBP 50 1 MARTHA PILLAI MD [facility] 12-04-2021 02:01-0500 Mean blood pressure 64 mm[Hg] MARTHA PILLAI MD [facility] 12-04-2021 02:01-0500 Systolic Blood Pressure NBP 96 1 MARTHA PILLAI MD [facility] 12-03-2021 19:51-0500 Mean blood pressure 62 mm[Hg] MARTHA PILLAI MD [facility] 12-03-2021 10:50-0500 Heart rate 67 /min MARTHA PILLAI MD [facility] 12-01-2021 13:15-0500 SaO2% (BldA) [Mass fraction] 93.7 % MARTHA PILLAI MD [facility] 11-29-2021 23:28-0500 Body temperature 97.7 [degF] MARTHA PILLAI MD [facility] 11-29-2021 11:04-0500 diastolic 40 mm[Hg] MARTHA PILLAI MD [facility] 11-29-2021 11:04-0500 systolic 82 mm[Hg] MARTHA PILLAI MD [facility] 11-29-2021 11:04-0500 systolic 80 mm[Hg] MARTHA PILLAI MD [facility] 11-26-2021 07:40-0500 SaO2% (BldA) [Mass fraction] 95.0 % MARTHA PILLAI MD [facility] 11-25-2021 04:06-0500 SaO2% (BldA) [Mass fraction] 95.9 % MARTHA PILLIA MD [facility] 11-22-2021 04:04-0500 Body height 162 cm MARTHA PILLAI MD [facility] 11-22-2021 04:04-0500 Body weight 76.8 kg MARTHA PILLAI MD [facility] 11-22-2021 04:04-0500 Body weight 29.26 kg/m2 MARTHA PILLAI MD [facility] 11-22-2021 02:05-0500 Diastolic blood pressure 55 mm[Hg] JAXON KUHN MD [facility] 11-22-2021 02:05-0500 Heart rate 74 /min JAXON KUHN MD [facility] 11-22-2021 02:05-0500 Respiratory rate 12 /min JAXON KUHN MD [facility] 11-22-2021 02:05-0500 Systolic blood pressure 88 mm[Hg] JAXON KUHN MD [facility] 11-22-2021 01:34-0500 Diastolic blood pressure 49 mm[Hg] JAXON KUHN MD [facility] 11-22-2021 01:34-0500 Systolic blood pressure 93 mm[Hg] JAXON KUHN MD [facility] 11-22-2021 01:30-0500 Heart rate 88 /min JAXON KUHN MD [facility] 11-22-2021 01:30-0500 Respiratory rate 16 /min JAXON KUHN MD [facility] 11-22-2021 01:15-0500 Diastolic blood pressure 58 mm[Hg] JAXON KUHN MD [facility] 11-22-2021 01:15-0500 Heart rate 101 /min JAXON KUHN MD [facility] 11-22-2021 01:15-0500 Respiratory rate 15 /min JAXON KUHN MD [facility] 11-22-2021 01:15-0500 Systolic blood pressure 100 mm[Hg] JAXON KUHN MD [facility] 11-22-2021 00:29-0500 SaO2% (BldA) [Mass fraction] 100 % JAXON KUHN MD [facility] 11-21-2021 21:58-0500 Body temperature 98.42 [degF] JAXON KUHN MD [facility] 11-21-2021 21:58-0500 Heart rate 130 /min JAXON KUHN MD [facility] Encounters Encounter Date Encounter Type Care Provider Facility Start: 07-04-2025 ambulatory Marci Lopez Facility:[facility] Start: 06-29-2025 End: 06-29-2025 ambulatory JESUS MANUEL FRETIAS Facility:[facility] Start: 06-19-2025 End: 06-19-2025 ambulatory Wesley Hayes [facility] Work Phone: [facility] Specialty Pharmacy Comment on above: SPP Neurology - Disc ontinuation Of Therapy ( Austedo XR) Start: 06-16-2025 End: 06-16-2025 ambulatory Dnanie Barros RN [facility] Clinical Communication Start: 06-16-2025 End: 06-16-2025 [facility] encounter [facility] Start: 06-11-2025 Dr. Ganesh Bradley and MD [facility] Work Phone: Start: 06-10-2025 Dr. Ganesh Bradley and MD [facility] Work Phone: Start: 06-09-2025 End: 06-09-2025 Telephone encounter Marci Lopez Work Phone: [facility] Clinical Communication Comment on above: Other ([facility] ) Start: 06-09-2025 Dr. Ganesh Bradley and MD [facility] Work Phone: Start: 06-08-2025 Dr. Ganesh Bradley and MD [facility] Work Phone: Start: 06-07-2025 Dr. Ganesh Bradley and MD [facility] Work Phone: Start: 06-06-2025 Dr. Ganesh Bradley and MD [facility] Work Phone: Start: 06-05-2025 Dr. [facility] Work Phone: Start: 06-04-2025 Dr. [facility] Work Phone: Start: 06-03-2025 Dr. Ben [facility] Work Phone: Start: 06-02-2025 Dr. Ben [facility] Work Phone: Start: 06-02-2025 End: 06-02-2025 Patient encounter procedure Donna Vail RN [facility] Clinical Communication Start: 06-02-2025 End: 06-02-2025 Telephone encounter Marci Lopez Work Phone: [facility] Clinical Communication Comment on above: Care Coordination (P age ) Start: 06-02-2025 End: 06-02-2025 ambulatory Donna Vail RN [facility] Clinical Communication Start: 06-02-2025 End: 06-11-2025 Evaluation and management of inpatient Dr. Marci Lopez DO Work Phone: -Medical Surgical 3 Start: 06-02-2025 End: 06-11-2025 Dr. Ben Johnson DO -Medical Surgical 3 Work Phone: Start: 06-01-2025 End: 06-01-2025 Subsequent hospital visit by physician Marci Lopez Work Phone: [facility] Radiology Comment on above: Chronic systolic (co ngestive) heart failure (HCC) Start: 06-01-2025 End: 06-01-2025 ambulatory MARCI LOPEZ [facility] Start: 05-30-2025 End: 05-30-2025 Patient encounter procedure Rosa ROWLEY -[facility] Work Phone: Start: 05-30-2025 End: 05-30-2025 [facility] Start: 05-30-2025 End: 05-30-[address] Marci Lopez DO Work Phone: -[facility] Start: 05-29-2025 End: 05-29-2025 Patient encounter procedure Kaykay ROWLEY -[facility] Work Phone: Start: 05-29-2025 End: 05-29-2025 Kaykay ROWLEY -[facility] Work Phone: Start: 05-29-2025 End: 05-29-[address] Marci Baird John DO Work Phone: -[facility] Start: 05-22-2025 End: 05-22-2025 Dr. Marci Lopez DO Work Phone: -Emergency Department Work Phone: Start: 05-22-2025 End: 05-22-2025 Emergency department patient visit Dr. Marci Lopez DO Work Phone: -Emergency Department Start: 05-21-2025 End: 05-21-2025 Specialty Pharmacy Wesley Hayes [facility] Work Phone: [facility] Specialty Pharmacy Comment on above: SPP Neurology - Medi cation Refill (Austedo XR) Start: 05-03-2025 End: 05-03-[address] Marci Lopez DO Work Phone: [facility] Work Phone: Start: 05-03-2025 End: 05-03-[address] Danish Tavarez MD -[facility] Work Phone: Start: 05-03-2025 End: 05-03-2025 Dr. Danish Tavarez MD -[facility] Work Phone: Start: 04-25-2025 Non-patient / Non-visit Shan Rivero nd DO -[facility] Start: 04-25-2025 End: 04-25-2025 Admission to same day surgery center Shan Lockett DO -Endoscopy Work Phone: Start: 04-25-2025 End: 04-25-2025 Shan Friend DO -Endoscopy Work Phone: Start: 04-25-2025 End: 04-25-[address] Marci Lopez DO Work Phone: [facility] Work Phone: Start: 04-23-2025 End: 04-23-2025 Specialty Pharmacy Wesley Hayes [facility] Work Phone: [facility] Specialty Pharmacy Comment on above: SPP Neurology - Medi cation Refill (Autedo ) Start: 04-20-2025 End: 05-03-2025 Evaluation and management of inpatient Dr. Alonso Marte MD -Transitional Care Unit Start: 04-20-2025 End: 05-03-2025 Dr. Alonso Marte MD -Transitional Care U nit Start: 04-20-2025 Non-patient / Non-visit Dr. Castro [facility] Work Phone: Start: 04-20-2025 Dr. Maximo Orosco [facility] Work Phone: Start: 04-19-2025 End: 04-20-2025 ambulatory Marci Lopez Facility:[facility] Start: 04-19-2025 End: 04-20-2025 Evaluation and management of inpatient Dr. Maximo Orosco DO -Medical Surgical 3 Work Phone: Start: 04-19-2025 End: 04-20-[address] Marci Lopez DO Work Phone: [facility] Work Phone: Start: 04-19-2025 End: 04-20-2025 Dr. Maximo Orosco DO -Medical Surgical 3 Work Phone: Start: 04-19-2025 End: 04-19-2025 Emergency department patient visit Dr. Marci Lopez DO Work Phone: -Emergency Department Work Phone: Start: 04-19-2025 End: 04-19-[address] Marci Lopez DO Work Phone: [facility] Work Phone: Start: 04-19-2025 End: 04-19-[address] Danish Tavarez MD -[facility] Work Phone: Start: 04-19-2025 End: 04-19-2025 Dr. Danish Tavarez MD [facility] Work Phone: Start: 04-06-2025 End: 06-06-2025 Follow-up encounter Leyla Murphy MD Work Phone: Neurology Start: 04-04-2025 ambulatory LEYLA MURPHY Facilit y:[facility] Start: 04-04-2025 End: 04-04-2025 Subsequent hospital visit by physician [facility] (1.5t) Radiology Comment on above: Essential tremor [G2 5.0] Start: 04-02-2025 End: 04-02-2025 Subsequent hospital visit by physician [facility] Work Phone: Radiology Comment on above: Presence of cardiac pacemaker [Z95.0] Start: 04-02-2025 End: 04-02-2025 ambulatory LEYLA MURPHY Facility:[facility] Start: 03-28-2025 End: 03-28-2025 ambulatory Trish Lyle [facility] Comment on above: Austedo XR approved Start: 03-28-2025 End: 03-28-2025 E-mail encounter from caregiver Trish Lyle [facility] Start: 03-28-2025 End: 03-28-2025 [...] Start: 02-28-2025 End: 02-28-2025 ambulatory Wesley Hayes [facility] Work Phone: [facility] Specialty Pharmacy Start: 02-28-2025 End: 02-28-2025 Patient encounter procedure Wesley Hayes [facility] Work Phone: [facility] Specialty Pharmacy Comment on above: SPP Neurology - Lina tment Referral (Ingrezza); Insurance Authorization ([place] Submission Pending) Start: 02-27-2025 End: 02-27-2025 ambulatory LEYLA MURPHY Facility:[facility] Start: 02-27-2025 End: 02-27-2025 Office outpatient visit 40 minutes Leyla Murphy MD Work Phone: Neurology Comment on above: Essential tremor (Pr imary Dx); Dyskinesia, tardive Start: 02-27-2025 End: 02-27-2025 Telephone encounter Leyla Murphy MD Work Phone: Neurology Comment on above: Appointment (MRI Bra in WO IVCON) Start: 02-14-2025 End: 02-14-2025 Patient encounter procedure Rosa ROWLEY -[facility] Work Phone: Start: 02-14-2025 End: 02-14-2025 Rosa ROWLEY -[facility] Work Phone: Start: 02-14-2025 End: 02-14-2025 ambulatory Rosa Rodriguez Facility:[facility] Start: 02-13-2025 End: 02-13-2025 Patient encounter procedure Mayte Burch [address] EQUIPMENT OPERATOR-C -[facility] Work Phone: Start: 02-13-2025 End: 02-13-[address] EQUIPMENT OPERATOR-C -[facility] Work Phone: Start: 02-13-2025 End: 02-13-2025 [facility] Start: 01-29-2025 End: 01-29-2025 Dr. Danish Tavarez MD -[facility] Work Phone: Start: 01-28-2025 End: 01-29-2025 ambulatory S[facility] Clinical [facility] Start: 01-28-2025 End: 01-29-2025 Patient encounter procedure Sari Parra [facility] Clinical [facility] Start: 01-23-2025 End: 01-23-[address] Luigi Tinoco MD -[facility] Work Phone: Start: 01-23-2025 End: 01-23-2025 Dr. Luigi Tinoco MD -[facility] Work Phone: Start: 01-23-2025 End: 01-23-2025 [facility]ulatory [facility] Facility[facility] Start: 01-22-2025 ambulatory [facility] Facility[facility] Start: 01-22-[address] Kristen Tinoco MD -[facility] Start: 01-22-2025 Dr. Luigi Tinoco MD [facility] Start: 01-19-2025 End: 01-19-2025 Telephone encounter Leyla Murphy MD Work Phone: Neurology Comment on above: Appointment (Time Ch kamilah: 05/15/2025) Start: 01-19-2025 ambulatory [facility] Facility:[id number] Start: 01-19-2025 End: 01-19-2025 Subsequent hospital visit by physician [facility] Work Phone: [facility] Comment on above: Solitary pulmonary n odule [R91.1] Start: 01-18-2025 End: 01-18-2025 Patient encounter procedure Kaykay ROWLEY -[facility] Work Phone: Start: 01-18-2025 End: 01-18-2025 Kaykay Pena [place] -[facility] Work Phone: Start: 01-18-2025 End: 01-18-20[facility] Start: 12-22-2024 ambulatory Rosa Cruzi ty:[facility] Start: 12-22-2024 End: 12-22-2024 Patient encounter procedure Marci Lopez -[facility] Work Phone: Start: 12-22-2024 End: 12-22-2024 ambulatory [facility] Start: 12-19-2024 End: 12-19-2024 Patient encounter procedure Dipti ROWLEY [facility] Vascular Surgery Work Phone: Start: 12-19-2024 End: 12-19-2024 [facility] Start: 12-15-2024 End: 12-15-2024 Patient encounter procedure Rosa ROWLEY -Laboratory, Specimen Work Phone: Start: 12-15-2024 End: 12-15-2024 ambulatory Rosa Rodriguez Facility:[facility] Start: 12-13-2024 End: 12-13-2024 Subsequent hospital visit by physician Marci Lopez Work Phone: [facility] Pulm Function Test Comment on above: Other forms of dyspn ea Start: 12-13-2024 End: 12-13-[facility] Start: 12-12-2024 End: 12-12-2024 Patient encounter procedure Rosa ROWLEY [facility] Gastroenterology Work Phone: Start: 12-12-2024 End: 12-12-2024 ambulatory Rosa Rodriguez Facility:[facility] Start: 11-28-2024 End: 11-28-[address] Adrienne Christine MD -[facility] Work Phone: Start: 11-28-2024 End: 11-28-2024 ambulatory Adrienne Christine Facility:[facility] Start: 11-24-2024 End: 11-24-2024 Telephone encounter Marci Lopez Work Phone: [facility] Clinical Communication Comment on above: Other (Discuss Apppo intment) Start: 11-23-2024 End: 11-23-2024 Patient encounter procedure Rosa ROWLEY -[facility] Work Phone: Start: 11-23-2024 End: 11-23-2024 ambulatory Rosa Rodriguez Facility:[facility] Start: 11-18-2024 End: 11-18-2024 Emergency department patient visit Dr. Jose Jaime DO -Emergency Department Work Phone: Start: 11-16-2024 End: 11-16-2024 Telephone encounter Marci Lopez Work Phone: [facility] Comment on above: Appointment Request Start: 11-14-2024 End: 11-14-2024 ambulatory Marci Baird John Facility:[facility] Start: 11-14-2024 Registered Recurring Marci Lopez DO -Physical Therapy Work Phone: Start: 11-13-2024 End: 11-14-2024 Telephone encounter Ghazala Gusman MD Work Phone: Rehab Medicine Comment on above: Requesting help with spasticity medication. Start: 11-10-2024 End: 11-10-2024 Subsequent hospital visit by physician Pina Isidro Work Phone: [facility] Comment on above: Dizziness and giddin ess Start: 11-10-2024 End: 11-10-2024 ambulatory MARCI LOPEZ [facility] Start: 11-07-2024 End: 02-06-2025 Transcribe Orders Pina Isidro RN [facility] Comment on above: Dizziness and giddin ess (Primary Dx) Start: 11-02-2024 End: 11-02-2024 [facility] Start: 10-30-2024 End: 10-30-2024 ambulatory Danish Tavarez Facility:[facility] Start: 10-17-2024 End: 10-17-2024 ambulatory Rosa Rodriguez Facility:[facility] Start: 10-13-2024 End: 01-12-2025 Transcribe Orders Marci John Work Phone: [facility] Comment on above: Other forms of dyspn ea (Primary Dx) Start: 10-06-2024 End: 10-06-2024 Telephone encounter Marci John Work Phone: [facility] Comment on above: Other Start: 09-14-2024 End: 09-14-2024 [facility]ulatory [facility] Start: 09-09-2024 End: 09-09-2024 [facility] Start: 08-28-2024 ambulatory [facility] Start: 08-25-2024 ambulatory [facility] Start: 08-25-2024 End: 08-25-2024 ambulatory [facility] Facility[facility] Start: 08-13-2024 End: 08-13-2024 Patient encounter [...] 08-04-2024 End: 08-04-2024 ambulatory Anna Zarco RN [facility] Start: 08-04-2024 End: 08-04-2024 Patient encounter procedure Anna Zarco RN [facility] Start: 08-03-2024 End: 08-03-2024 ambulatory Marci Lopez Facility:[facility] Start: 08-01-2024 End: 08-01-2024 ambulatory Marci Lopez Facility:[facility] Start: 07-25-2024 End: 07-25-2024 ambulatory Marci Lopez Facility:[facility] Start: 07-21-2024 End: 07-21-2024 ambulatory Marci Lopez Facility:[facility] Start: 07-21-2024 ambulatory MARTHA PILLAI Facility :[id number] Start: 07-21-2024 End: 07-21-2024 Subsequent hospital visit by physician [facility] Work Phone: [facility] Comment on above: Solitary pulmonary n odule [R91.1] Start: 07-20-2024 End: 10-19-2024 Transcribe Orders Marci Lopez Work Phone: [facility] Outaptient Lab Comment on above: Chronic kidney disea se, stage 3a (HCC) (Primary Dx) Start: 07-19-2024 End: 07-19-2024 ambulatory Marci Lopez Facility:[facility] Start: 07-17-2024 End: 07-17-2024 ambulatory Marci Lopez Facility:[facility] Start: 07-11-2024 End: 07-11-2024 ambulatory Bill [facility]ose[facility] Clinical Communication Start: 07-11-2024 End: 07-11-2024 Patient encounter procedure Bill [facility]ose[facility] Clinical Communication Start: 07-11-2024 End: 07-11-2024 Telephone encounter Marci Lopez Work Phone: [facility] Clinical Communication Comment on above: Other (Needs call jaci lora from office) Start: 07-10-2024 End: 07-10-2024 ambulatory MARCI LOPEZ [facility] Start: 07-10-2024 End: 10-09-2024 Subsequent hospital visit by physician Marci John Work Phone: [facility] Radiology Comment on above: Other constipation Other constipation ( Primary Dx) Start: 07-03-2024 End: 07-05-2024 ambulatory Marci Brie [facility] Facility:[facility] Start: 06-28-2024 End: 06-28-2024 Telephone encounter Rick Golud CNP Work Phone: [facility] Clinical Communication Comment on above: Other ([facility] ) Start: 05-19-2024 End: 05-19-2024 ambulatory ADRIENNE BYERS DO Facility:B Start: 05-19-2024 End: 05-19-[address] JAC CHRISTENSEN MD [facility] Start: 05-17-2024 End: 05-17-2024 Patient encounter procedure Ghazala Gusman MD Work Phone: Rehab Medicine Comment on above: History of stroke (P rimary Dx); Spasticity Start: 04-07-2024 End: 04-07-2024 Patient encounter procedure ADRIENNE BYERS DO [facility] Start: 04-07-2024 End: 04-07-2024 ambulatory ADRIENNE BYERS DO Facility:[facility] Start: 02-29-2024 End: 03-15-2024 Evaluation and management of inpatient Dr. Ardienne Byers Work Phone: [facility]-Transitional Care Unit Start: 02-29-2024 Non-patient / Non-visit Dr. Lauren Byers Work Phone: [facility]icians Work Phone: Start: 02-28-2024 Non-patient / Non-visit Dr. Lauren Byers Work Phone: [facility] Start: 02-28-2024 Non-patient / Non-visit Dr. Lauren Byers Work Phone: [facility] Work Phone: Start: 02-27-2024 Non-patient / Non-visit Dr. Lauren Byers Work Phone: [facility] Start: 02-27-2024 Non-patient / Non-visit Dr. Lauren Byers Work Phone: [facility] Work Phone: Start: 02-26-2024 Non-patient / Non-visit Dr. Lauren Byers Work Phone: [facility] Start: 02-26-2024 Non-patient / Non-visit Dr. Lauren Byers Work Phone: [facility] Work Phone: Start: 02-25-2024 Non-patient / Non-visit Dr. Lauren Byers Work Phone: [facility] Start: 02-25-2024 Non-patient / Non-visit Dr. Lauren Byers Work Phone: [facility] Work Phone: Start: 02-24-2024 Non-patient / Non-visit Dr. Lauren Byers Work Phone: [facility] Start: 02-24-2024 Non-patient / Non-visit Dr. Lauren Byers Work Phone: [facility] Work Phone: Start: 02-23-2024 Non-patient / Non-visit Dr. Lauren Byers Work Phone: [facility] Start: 02-23-2024 Non-patient / Non-visit Dr. Lauren Byers Work Phone: [facility] Work Phone: Start: 02-22-2024 Non-patient / Non-visit Dr. Lauren Byers Work Phone: [facility] Start: 02-22-2024 Non-patient / Non-visit Dr. Lauren Byers Work Phone: [facility] Work Phone: Start: 02-22-2024 End: 02-22-2024 Non-patient / Non-visit Dr. Adrienne Byers Work Phone: [facility] Work Phone: Start: 02-21-2024 Non-patient / Non-visit Dr. Lauren Byers Work Phone: [facility] Work Phone: Start: 02-21-2024 End: 02-29-2024 Evaluation and management of inpatient [facility]rienne [facility]ers [facility] Work Phone: Start: 02-19-2024 End: 02-19-2024 Emergency department patient visit [facility]-Emergency Department Work Phone: Start: 02-14-2024 End: 02-14-2024 ambulatory ADRIENNE BYERS DO Facility:[facility] Start: 12-27-2023 End: 12-27-2023 ambulatory ADRIENNE BYERS DO Facility:[facility] Start: 12-27-2023 End: 12-27-2023 Patient encounter procedure ADRIENNE BYERS DO [facility] Start: 12-08-2023 End: 12-08-2023 Emergency department patient visit Dr. [facility]rienne [facility]ers [facility] Start: 10-28-2023 End: 01-04-2024 ambulatory ADRIENNE BYERS DO Facility:[facility] Start: 10-25-2023 End: 10-25-2023 ambulatory ADRIENNE BYERS DO Facility:B Start: 10-25-2023 End: 10-25-[address] JAC CHRISTENSEN MD [facility] Start: 10-22-2023 ambulatory Sherif Ramirez MD Work Phone: [facility] Comment on above: Occupational Therapy Start: 10-20-2023 End: 10-20-2023 ambulatory Sherif Ramirez MD Work Phone: [facility] Comment on above: Essential tremor (Pr imary Dx); Tremor of left hand Start: 10-20-2023 End: 10-20-2023 Telemedicine consultation with patient Sherif Ramirez MD Work Phone: [facility] Start: 10-12-2023 Non-patient / Non-visit Dr. Lauren Byers Work Phone: [facility] Work Phone: Start: 10-11-2023 Non-patient / Non-visit Dr. Lauren Byers Work Phone: [facility] Work Phone: Start: 10-10-2023 Non-patient / Non-visit Dr. Lauren Byers Work Phone: [facility] Work Phone: Start: 10-09-2023 Non-patient / Non-visit Dr. Lauren Byers Work Phone: [facility] Work Phone: Start: 10-08-2023 Non-patient / Non-visit Dr. Lauren Byers Work Phone: [facility] Work Phone: Start: 10-07-2023 End: 10-12-2023 Evaluation and management of inpatient Dr. Adrienne Byers [facility] Work [facility]: Start: 10-07-2023 End: 10-12-[address] Adrienne Byers Work Phone: [facility] Work Phone: Start: 10-07-2023 Non-patient / Non-visit Dr. Lauren Byers Work Phone: [facility] Work Phone: Start: 10-01-2023 End: 10-07-2023 Evaluation and management of inpatient Dr. Adrienne Byers [facility] Start: 10-01-2023 Non-patient / Non-visit Dr. Lauren Byers Work Phone: [facility] Work Phone: Start: 09-30-2023 Non-patient / Non-visit Dr. Lauren Byers Work Phone: [facility] Work Phone: Start: 09-30-2023 End: 09-30-[address] Adrienne Byers Work Phone: [facility] Work Phone: Start: 09-29-2023 Non-patient / Non-visit Dr. Lauren Byers Work Phone: [facility] Work Phone: Start: 09-29-2023 Non-patient / Non-visit Dr. Lauren Byers Work Phone: [facility] Start: 09-29-2023 Non-patient / Non-visit Dr. 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] Start: 09-21-2023 End: 09-21-2023 Subsequent hospital visit by physician [facility] Start: 09-07-2023 End: 09-07-2023 ambulatory ADRIENNE GAXIOLA Facility:B Start: 09-07-2023 End: 09-07-2023 Patient encounter procedure ADRIENNE BYERS DO [facility] Start: 08-27-2023 ambulatory ADRIENNE BYERS DO Facili ty:B Start: 08-26-2023 End: 08-26-2023 ambulatory ADRIENNE BYERS DO Facility:B Start: 08-18-2023 End: 08-18-2023 ambulatory ADRIENNE BYERS DO Facility:B Start: 08-18-2023 End: 08-18-2023 SAME DAY STAY JAXON KUHN MD [facility] Start: 08-16-2023 ambulatory ADRIENNE BYERS DO Facili ty:B Start: 08-11-2023 End: 08-11-2023 ambulatory ADRIENNE BYERS DO Facility:B Start: 08-11-2023 End: 08-11-2023 SAME DAY STAY JAXON KUHN MD [facility] Start: 08-07-2023 End: 08-07-2023 ambulatory ADRIENNE BYERS DO Facility:B Start: 08-04-2023 End: 08-04-2023 Emergency department patient visit JAXON KUHN MD [facility] Start: 07-21-2023 Refill Sherif Ramirez MD Work Phone: [facility] Comment on above: Refill Request Start: 07-13-2023 End: 07-13-2023 ambulatory ADRIENNE BYERS DO Facility:B Start: 07-01-2023 End: 07-01-2023 Office outpatient visit 25 minutes Sherif Ramirez MD Work Phone: [facility] Comment on above: 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); Parkinsonism, unspecified Parkinsonism type (HCC) Start: 06-23-2023 ambulatory ADRIENNE BYERS Facili ty:B Start: 06-09-2023 End: 06-09-[address] JAC CHRISTENSEN MD Facility:B Start: 06-09-2023 End: 06-09-[address] JAC CHRISTENSEN MD [facility] Start: 05-17-2023 End: 05-17-2023 Patient encounter procedure ADRIENNE BYERS DO [facility] Start: 05-17-2023 Telephone encounter Ghazala davis MD [...] Patient encounter procedure DR JAC CHRISTENSEN MD [facility] Start: 11-30-2022 End: 12-04-2022 Outreach Lab ADRIENNE BYERS DO [facility] Start: 11-27-2022 End: 11-27-2022 Patient encounter procedure ADRIENNE BYERS DO [facility] Start: 11-02-2022 End: 11-06-2022 Outreach Lab ADRIENNE BYERS DO [facility] Start: 10-12-2022 Telephone encounter Ghazala davis MD Work Phone: Rehab Medicine Comment on above: Medication question Start: 10-12-2022 End: 10-12-2022 ambulatory Sherif Ramirez MD Work Phone: [facility] Comment on above: Tremor of left hand Start: 10-12-2022 End: 10-12-2022 Telemedicine consultation with patient Sherif Ramirez MD Work Phone: [facility] Start: 10-05-2022 End: 10-05-[address] LARY WHEAT DO [facility] Start: 09-09-2022 End: 09-09-[address] JAC CHRISTENSEN MD [facility] Start: 08-19-2022 End: 08-20-2022 Emergency department patient visit DR AKIN SALGUERO DO [facility] Start: 08-10-2022 End: 08-10-2022 ambulatory Sherif Ramirez MD Work Phone: [facility] Comment on above: 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); Parkinson disease (HCC); Nocturnal muscle cramp Start: 08-10-2022 End: 08-10-2022 Telemedicine consultation with patient Sherif Ramirez MD Work Phone: [facility] Start: 07-20-2022 End: 07-20-[address] JAC CHRISTENSEN MD [facility] Start: 07-14-2022 End: 01-03-2023 Lab-Standing Order QIANA BAKER MD [facility] Start: 07-08-2022 End: 10-19-2022 Cardiac Rehab MITCHELL MARY MD [facility] Start: 07-01-2022 End: 07-01-[address] JAC CHRISTENSEN MD [facility] Start: 06-29-2022 ambulatory Sherif Ramirez MD Work Phone: [facility] Comment on above: Parkinson Disease pr escription Start: 06-23-2022 End: 06-23-2022 Patient encounter procedure Sherif Ramirez MD Work Phone: [facility] Comment on above: Parkinsonism, unspec ified Parkinsonism type (HCC) (Primary Dx); Tremor of left hand Start: 06-09-2022 End: 06-09-[address] JAC CHRISTENSEN MD [facility] Start: 06-04-2022 End: 06-04-2022 Patient encounter procedure Ghazala Gusman MD Work Phone: Spine Medicine Comment on above: Tremor of left hand (Primary Dx) Start: 06-01-2022 End: 06-01-[address] LARY WHEAT DO [facility] Start: 05-22-2022 End: 05-22-2022 Emergency department patient visit NOREEN HICKS MD [facility] Start: 05-01-2022 Refill Ghazala Gusman MD Work Phone: Rehab Medicine Comment on above: Refill Request Start: 05-01-2022 End: 05-01-[address] JAC CHRISTENSEN MD [facility] Start: 04-25-2022 End: 04-26-2022 Emergency department patient visit NATAN ARRIETA DO [facility] Start: 04-03-2022 End: 04-03-[address] JAC CHRISTENSEN MD [facility] Start: 04-02-2022 End: 04-02-[address] JAC CHRISTENSEN MD [facility] Start: 03-24-2022 End: 03-24-[address] JAC CHRISTENSEN MD [facility] Start: 03-20-2022 End: 03-20-[address] JAC CHRISTENSEN MD [facility] Start: 03-17-2022 End: 03-17-[address] JCA CHRISTENSEN MD [facility] Start: 03-06-2022 End: 03-06-[address] JAC CHRISTENSEN MD [facility] Start: 03-03-2022 End: 03-03-2022 Patient encounter procedure HARISH GIFFORD ACCOUNT SERVICES REPRESENTATIVE-SALES CLERK FOOD [facility] Start: 02-24-2022 End: 02-24-[address] JAC CHRISTENSEN MD [facility] Start: 02-05-2022 Telephone encounter Ghazala davis MD Work Phone: Spine Medicine Comment on above: Question (medication ) Start: 02-04-2022 End: 02-04-2022 Patient encounter procedure REI ALFONSO ACCOUNT SERVICES REPRESENTATIVE-SALES CLERK [employer] [facility] Start: 01-03-2022 End: 01-03-2022 Patient encounter procedure REI ALFONSO ACCOUNT SERVICES REPRESENTATIVE-SALES CLERK [employer] [facility] Start: 12-29-2021 End: 12-29-[address] BHASKAR LEE MD [facility] Start: 12-24-2021 End: 12-25-2021 Evaluation and management of inpatient MITCHELL MARY MD [facility] Start: 12-23-2021 End: 12-24-2021 Emergency department patient visit CATHY NEWTONDANIELA FOWLER [facility] Start: 11-22-2021 End: 12-05-2021 Evaluation and management of inpatient CHRISTINA MARCIAL MD [facility] Start: 11-21-2021 End: 11-22-2021 Emergency department patient visit JAXON KUHN MD [facility] Start: 11-06-2021 End: 11-06-[address] LARY WHEAT DO [facility] Start: 10-08-2021 End: 10-08-[address] LARY WHEAT DO [facility] Start: 09-26-2021 End: 09-26-[address] LARY WHEAT DO [facility] Procedures Date Procedure Procedure Detail Performing Clinician Start: 06-11-2025 Blood count smear mcrscp w/mnl difrntl wbc count Dr. Marci Lopez DO Work Phone: Start: 06-11-[address] Saranya Lopez DO Work Phone: Start: 06-11-2025 Mean corpuscular hemoglobin concentration determination Dr. Marci Lopez DO Work Phone: Start: 06-11-2025 Nucleated red blood cell count procedure Dr. Marci Lopez DO Work Phone: Start: 06-11-2025 Platelet mean volume determination Dr. Jose Lopez DO Work Phone: Start: 06-07-[address] Marci magallanes DO Work Phone: Start: 06-05-2025 Endomysial antibody IgA level Dr. Marci Lopez DO Work Phone: Start: 06-02-[address] Marci Lopez DO Work Phone: Start: 06-02-[address] Marci Lopez DO Work Phone: Start: 06-02-2025 Dr. Marci Lopez DO Work Phone: Start: 06-02-[address] Marci Lopez DO Work Phone: Start: 06-02-2025 CT of thorax, abdomen and pelvis with contrast Dr. Marci Lopez DO Work Phone: Start: 06-02-[address] Saranya Lopez DO Work Phone: Start: 06-02-2025 Mean corpuscular hemoglobin concentration determination Dr. Marci Lopez DO Work Phone: Start: 06-02-2025 Platelet mean volume determination Dr. Jose Lopez DO Work Phone: Start: 06-02-[address] Jose Lopez DO Work Phone: Start: 05-22-2025 Urine microscopy: [...] Phone: Start: 01-22-[address] Saarnya Lopez DO Work Phone: Start: 01-22-2025 Mean corpuscular hemoglobin concentration determination Dr. Marci Lopez DO Work Phone: Start: 01-22-2025 Nucleated red blood cell count procedure Dr. Marci Lopez DO Work Phone: Start: 01-22-2025 Platelet mean volume determination Dr. Jose Lopez DO Work Phone: Start: 01-22-2025 Total iron binding capacity measurement Dr. Marci Lopez DO Work Phone: Start: 12-22-[address] Marci Lopez DO Work Phone: Start: 12-22-2024 MRI of neck vessels with contrast Dr. Pacheco Lopez DO Work Phone: Start: 12-13-2024 Brncdilat rspse spmtry pre&post-brncdilat neno Lopez Work Phone: Start: 11-18-2024 Computed tomography [...] x-ray of pelvis and lower extremity Dr. Adirenne Byers Work Phone: Start: 10-28-2023 End: 01-04-2024 [...] head without contrast Start: 06-09-2023 Echocardiography ADRIENNE GODWINTON DO Comment on above: 1. Left ventricle: [...] DO Comment on above: Implantation Biventricular ICD DRYWALL CONTRACTOR-D 04/23 Dr Ashley Evans Generator [employer] G247 VIGILANT X4 DRYWALL CONTRACTOR-D Serial [id number] RA Lead [employer] 7840 Ingevity + MRI Serial [id number] 05/12/2022 RV Lead [employer] 0675 Polo 4 Front Serial [id number] 05/12/2022 LV Lead [employer] 4674 Acuity X4 Spiral Short Serial [id number] 05/12/2022 Start: 04-21-2022 [facility] Comment on above: Dilated left ventricle [...] MD Comment on above: Implantation Biventricular ICD DRYWALL CONTRACTOR-D 04/23 Dr Ashley Evans Generator [employer] G247 VIGILANT X4 DRYWALL CONTRACTOR-D Serial [id number] RA Lead [employer] 7840 Ingevity + MRI Serial [id number] 05/12/2022 RV Lead [employer] 0675 Polo 4 Front Serial [id number] 05/12/2022 LV Lead [employer] 4674 Acuity X4 Spiral Short Serial [id number] 05/12/2022 Ophthalmic surgery ( qualifier value) DR LARY WHEAT DO Comment on above: CORRECTED CROSS EYES A CHILD Tonsillectomy DR LARY RUIZ DO Comment on above: A CHILD Plan of Treatment Date Care Activity Detail Author Start: 2028 RSV Vaccine (1 - 1-d ose 75+ series) RSV Vaccine (1 - 1-dose 75+ series) [facility] Start: 07-20-2027 Diabetes Screening Diabetes Screenin g [facility] Start: 07-23-2025 Influenza vaccination S [facility] Start: 07-20-2025 Creatinine measurement Creatinine Le jana [facility] Start: 07-20-2025 Diabetes: Estimated Glomerular Filtration Rate for Kidney Health Diabetes: Estimated Glomerular Filtration Rate for Kidney Health [facility] Start: 07-20-2025 Potassium measurement Potassium Leve l [facility] Start: 06-29-2025 End: 06-29-2025 Patient encounter procedure 06/29/2025 11:00 AM EDT Office Visit Neurology [address] [address] Cecilia Owens, ACCOUNT SERVICES REPRESENTATIVE.SALES CLERK FOOD [address] [place] [address] FOLLOW UP Neurology Comment on above: FOLLOW UP Start: 06-19-2025 End: 06-19-2025 Specialty Pharmacy 06/19/2025 7:45 AM EDT Specialty Pharmacy [facility] [address] [place] [address] [address] [place] [address] Pharmacist, Specialty[address] [place] [address] Refill - [place] - [facility] Comment on above: Refill - [place] - Start: 06-11-2025 Referral to service [facility] Start: 06-11-2025 Patient discharge [facility] Start: 06-07-2025 End: 06-07-2025 Patient encounter procedure 06/07/2025 10:00 AM EDT Office Visit Neurology [address] [facility] [address] [place] [phone] Leyla Murphy MD [address] [facility] [address] [place] [address] 3 month follow up - 60 minutes per KA Neurology Comment on above: 3 month follow up - 60 minutes per KA Start: 06-06-2025 Referral to occupati onal therapist [facility] Start: 06-06-2025 Referral to service [facility] Start: 06-06-2025 Speech therapy assessment [facility] Start: 06-06-2025 Referral to gastroenterology service [facility] Start: 06-06-2025 Consultation [facility] Start: 06-04-2025 [facility] Start: 06-03-2025 Following clinical p athway protocol [facility] Start: 06-02-2025 Following clinical p athway protocol [facility] Start: 06-02-2025 Ambulation without limitation [facility] Start: 06-02-2025 Assessment of risk o f venous thromboembolism [facility] Start: 06-02-2025 Catheterization of vein [facility] Start: 06-02-2025 Inhalation therapy procedure [facility] Start: 06-02-2025 Insertion of cathete r into peripheral vein [facility] Start: 06-02-2025 Providing care accor ding to standard [facility] Start: 06-02-2025 [facility] Start: 06-02-2025 Verification routine [facility] Start: 06-02-2025 Admission procedure [facility] Start: 06-02-2025 Hospital admission, emergency, from emergency room, medical nature [facility] Start: 06-02-2025 Taking nasal swab [facility] Start: 06-02-2025 Bacteria identified in Sputum by Culture [facility] Start: 06-02-2025 End: 06-02-2025 [facility] Start: 05-23-2025 End: 05-23-2025 Specialty Pharmacy 05/23/2025 7:45 AM EDT Specialty Pharmacy [facility] [address] [place] [id number] [place] [address] Pharmacist, Specialtygroup3 [address] [place] [address] [place] [address] Refill - [place] - No Answer/WAM 05/21 [facility] Comment on above: Refill - [place] - N o Answer/WAM 05/21 Start: 05-22-2025 End: 05-22-2025 [facility] Start: 05-21-2025 End: 05-21-2025 Specialty Pharmacy 05/21/2025 8:00 AM EDT Specialty Pharmacy [facility] [address] [place] [id number] [place] [address] Pharmacist, [facility] [address] [place] [address] [place] [address] Refill - [place] - [facility] Comment on above: Refill - [place] - Start: 05-15-2025 End: 05-15-2025 Patient encounter procedure 05/15/2025 4:00 PM EDT Office Visit Neurology [address] [phone] Leyla Murphy MD [address] [address] NEW PATIENT (previous patient of Dr. Ramirez) - Essential tremors Neurology Comment on above: NEW PATIENT (previou s patient of Dr. Ramirez) - Essential tremors Start: 05-04-2025 Development of care plan [facility] Start: 05-03-2025 [facility] Start: 05-03-2025 Patient discharge [facility] Start: 05-02-2025 [facility] Start: 05-02-2025 Speech therapy management [facility] Start: 04-27-2025 [facility] Start: 04-25-2025 Egd transoral biopsy single/multiple [facility] Start: 04-25-2025 Patient discharge [facility] Start: 04-24-2025 Preparation of bowel for procedure [facility] Start: 04-24-2025 [facility] Start: 04-24-2025 Speech therapy management [facility] Start: 04-24-2025 Speech therapy assessment [facility] Start: 04-24-2025 Verification routine [facility] Start: 04-23-2025 [facility] Start: 04-23-2025 End: 04-23-2025 Specialty Pharmacy 04/23/2025 7:00 AM EDT Specialty Pharmacy [facility] [facility] [address] [place] [address] Pharmacist, [facility]ty[facility] [address] [place] [address] Refill [facility] Comment on above: Refill [facility] Start: 04-22-2025 [facility] Start: 04-21-2025 Development of care plan [facility] Start: 04-21-2025 Developing a treatme nt plan [facility] Start: 04-20-2025 Admission procedure [facility] Start: 04-20-2025 Following clinical p athway protocol [facility] Start: 04-20-2025 Introduction of urin dl catheter [facility] Start: 04-20-2025 Measuring intake and output [facility] Start: 04-20-2025 Patient referral to dietitian [facility] Start: 04-20-2025 Referral to occupati onal therapist [facility] Start: 04-20-2025 Referral to service [facility] Start: 04-20-2025 Vital signs measurements [facility] Start: 04-20-2025 End: 04-20-2025 [facility] Start: 04-20-2025 Patient discharge [facility] Start: 04-20-2025 [facility] Start: 04-19-2025 Following clinical p athway protocol [facility] Start: 04-19-2025 Ambulation without limitation [facility] Start: 04-19-2025 Assessment of risk o f venous thromboembolism [facility] Start: 04-19-2025 Care regimes management [facility] Start: 04-19-2025 Incentive spirometry [facility] Start: 04-19-2025 Insertion of cathete r into peripheral vein [facility] Start: 04-19-2025 Notification of physician [facility] Start: 04-19-2025 Oxygen therapy [facility] Start: 04-19-2025 Providing care accor ding to standard [facility] Start: 04-19-2025 Referral to occupati onal therapist [facility] Start: 04-19-2025 Referral to service [facility] Start: 04-19-2025 End: 04-19-2025 [facility] Start: 04-19-2025 Hospital admission, emergency, from emergency room, medical nature [facility] Start: 04-19-2025 Admission procedure [facility] Start: 04-19-2025 Consultation [facility] Start: 04-19-2025 Referral to service [facility] Start: 04-19-2025 Inhalation therapy procedure [facility] Start: 04-04-2025 End: 04-04-2025 Patient encounter procedure 04/04/2025 12:00 PM EDT Appointment Radiology [facility] [place] [address] DUE TO PT IMPLANT- IF APPT NEEDS TO BE RESCHEDULED IT MUST BE SENT TO THE FOLLOWING STAFF MESSAGE ADDRESS: IMAGING IMPLANTS [[id number]]PACEMAKER approved to schedule by Radiology Comment on above: DUE TO PT IMPLANT- I F APPT NEEDS TO BE RESCHEDULED IT MUST BE SENT TO THE FOLLOWING STAFF MESSAGE ADDRESS: IMAGING IMPLANTS [[id number]]PACEMAKER approved to schedule by Start: 04-02-2025 End: 04-02-2025 Patient encounter procedure Cardiology Comment on above: DEVICE CHECK FOR MRI CLEARANCE CHEST XRAY FOR MRI C LEARANCE Start: 03-11-2025 DTaP/Tdap/Td Vaccine s (2 - Td or Tdap) DTaP/Tdap/Td Vaccines (2 - Td or Tdap) [facility] Start: 03-11-2025 Urine microalbumin profile DTa P,Tdap,Td Vaccine (2 - Td or Tdap) [facility] Start: 03-10-2025 [facility] Start: 02-13-2025 Patient referral [facility] Work Phone: Start: 12-13-2024 End: 12-13-2024 Patient encounter procedure 12/13/2024 8:30 AM EST Appointment [facility] [address] [place] [phone] Marci [place] [address] [facility] Start: 12-12-2024 Patient referral [facility] Work Phone: Start: 11-22-2024 Advance Directive Discussion Advance Directive Discussion [facility] Start: 11-22-2024 Medicare Advantage A nnual Wellness Visit Medicare Advantage Annual Wellness Visit [facility] Start: 11-18-2024 [facility] Start: 07-23-2024 Covid-19 Vaccine ( season) Covid-19 Vaccine ( season) [facility] [facility] Start: 07-23-2024 Covid-19 Vaccine ( season) Covid-19 Vaccine () [facility] Start: 07-23-2024 Influenza vaccination [facility] Start: 03-29-2024 Blood chemistry [facility] Start: 03-22-2024 Blood chemistry [facility] Start: 03-15-2024 Patient discharge [facility] Start: 03-14-2024 Referral to service [facility] Start: 03-14-2024 Development of care plan [facility] Start: 03-07-2024 Speech therapy management [facility] Start: 03-07-2024 Speech therapy assessment [facility] Start: 03-06-2024 [facility] Start: 03-02-2024 Fluid intake encouragement [facility] Start: 03-01-2024 Development of care plan [facility] Start: 03-01-2024 Developing a treatme nt plan [facility] Start: 02-29-2024 Verification routine [facility] Start: 02-29-2024 Admission procedure [facility] Start: 02-29-2024 Measuring intake and output [facility] Start: 02-29-2024 Patient referral to dietitian [facility] Start: 02-29-2024 Referral to occupati onal therapist [facility] Start: 02-29-2024 Referral to service [facility] Start: 02-29-2024 Vital signs measurements [facility] Start: 02-29-2024 [facility] Start: 02-29-2024 Patient discharge [facility] Start: 02-29-2024 Patient referral to [facility] Start: 02-26-2024 Consultation [facility] Start: 02-25-2024 End: 02-25-2024 Blood culture [facility] Start: 02-25-2024 [facility] Start: 02-25-2024 Bacteria identified in Blood by Culture Blood Culture [facility] Start: 02-22-2024 [facility] Start: 02-22-2024 Referral to occupati onal therapist [facility] Start: 02-22-2024 Referral to service [facility] Start: 02-21-2024 Application of intermittent pneumatic compression device [facility] Start: 02-21-2024 Ambulation without limitation [facility] Start: 02-21-2024 Assessment of risk o f venous thromboembolism [facility] Start: 02-21-2024 Insertion of cathete r into peripheral vein [facility] Start: 02-21-2024 Providing care accor ding to standard [facility] Start: 02-21-2024 Referral to gastroenterology service [facility] Start: 02-21-2024 [facility] Start: 02-21-2024 Following clinical p athway protocol [facility] Start: 02-21-2024 Verification routine [facility] Start: 02-21-2024 Admission procedure [facility] Start: 02-21-2024 Hospital admission, emergency, from emergency room, medical nature [facility] Start: 02-21-2024 [facility] Start: 02-21-2024 Patient referral to [facility] Start: 02-19-2024 [facility] Start: 02-19-2024 Emergency department visit moderate severity EMERGENCY DEPT VISIT LOW MDM [facility] Start: 02-19-2024 Iv infusion hydratio n each additional hour HYDRATE IV INFUSION ADD-ON [facility] Start: 02-19-2024 Iv infusion hydratio n initial 31 min-1 hour HYDRATION IV INFUSION INIT [facility] Start: 12-10-2023 [facility] Start: 12-08-2023 [facility] Start: 11-22-2023 Advance Directive Discussion Advance Directive Discussion [facility] Start: 11-22-2023 Behavioral Health Screening Behavioral Health Screening [facility] Start: 11-22-2023 Medicare Advantage A nnual Wellness Visit Medicare Advantage Annual Wellness Visit [facility] Start: 10-12-2023 Patient discharge [facility] Start: 10-08-2023 Development of care plan [facility] Start: 10-08-2023 [facility] Start: 10-07-2023 Following clinical p athway protocol [facility] Start: 10-07-2023 Aspiration precautions [facility] Start: 10-07-2023 Assessment of risk o f venous thromboembolism [facility] Start: 10-07-2023 Cardiac monitoring [facility] Start: 10-07-2023 Care regimes management [facility] Start: 10-07-2023 Catheterization of vein [facility] Start: 10-07-2023 Elevation of head of bed [facility] Start: 10-07-2023 Exercises [facility] Start: 10-07-2023 Fall prevention [facility] Start: 10-07-[address] anned interventions [facility] Start: 10-07-2023 Inhalation therapy procedure [facility] Start: 10-07-2023 Insertion of cathete r into peripheral vein [facility] Start: 10-07-2023 Introduction of urin dl catheter [facility] Start: 10-07-2023 Measuring intake and output [facility] Start: 10-07-2023 Notification of physician [facility] Start: 10-07-2023 Providing care accor ding to standard [facility] Start: 10-07-2023 Provision of activit y privileges [facility] Start: 10-07-2023 Referral to occupati onal therapist [facility] Start: 10-07-2023 Referral to service [facility] Start: 10-07-2023 Speech therapy assessment [facility] Start: 10-07-2023 Tobacco use cessatio n education [facility] Start: 10-07-2023 [facility] Start: 10-07-2023 Vital signs measurements [facility] Start: 10-07-2023 Verification routine [facility] Start: 10-07-2023 Hospital admission, emergency, from emergency room, medical nature [facility] Start: 10-07-2023 Admission procedure [facility] Start: 10-07-2023 Oxygen therapy [facility] Start: 10-07-2023 [facility] Start: 10-07-2023 Patient discharge [facility] Start: 10-02-2023 Speech therapy management [facility] Start: 10-02-2023 Developing a treatme nt plan [facility] Start: 10-02-2023 Development of care plan [facility] Start: 10-01-2023 Admission procedure [facility] Start: 10-01-2023 Measuring intake and output [facility] Start: 10-01-2023 Patient referral to dietitian [facility] Start: 10-01-2023 Referral to occupati onal therapist [facility] Start: 10-01-2023 Referral to service [facility] Start: 10-01-2023 Vital signs measurements [facility] Start: 10-01-2023 End: 10-01-2023 [facility] Start: 10-01-2023 Speech therapy assessment [facility] Start: 10-01-2023 Patient discharge [facility] Start: 09-29-2023 [facility] Start: 09-28-2023 Following clinical p athway protocol [facility] Start: 09-28-2023 Cardiac monitoring [facility] Start: 09-28-2023 Catheterization of vein [facility] Start: 09-28-2023 Elevation of head of bed [facility] Start: 09-28-2023 Exercises [facility] Start: 09-28-[address] anned interventions [facility] Start: 09-28-2023 Notification of physician [facility] Start: 09-28-2023 Oxygen therapy [facility] Start: 09-28-2023 Patient referral to dietitian [facility] Start: 09-28-2023 Referral to occupati onal therapist [facility] Start: 09-28-2023 Referral to service [facility] Start: 09-28-2023 Speech therapy assessment [facility] Start: 09-28-2023 Tobacco use cessatio n education [facility] Start: 09-28-2023 [facility] Start: 09-28-2023 Vital signs measurements [facility] Start: 09-28-2023 Admission procedure [facility] Start: 09-28-2023 Hospital admission, emergency, from emergency room, medical nature [facility] Start: 09-28-2023 Oxygen therapy [facility] Start: 09-28-2023 [facility] Start: 08-07-2023 Adult depression scr eening assessment DEPRESSION SCREENING [facility] Start: 07-23-2023 COVID-19 Vaccine ( season) COVID-19 Vaccine ( season) [facility] Start: 07-23-2023 Covid-19 Vaccine ( season) Covid-19 Vaccine ( season) [facility] Start: 07-23-2023 Influenza vaccination [facility] Start: 11-22-2022 ADVANCE DIRECTIVE DISCUSSION ADVANCE DIRECTIVE DISCUSSION [facility] Start: 11-22-2022 DEPRESSION ASSESSMENT DEPRESSION ASS ESSMENT [facility] Start: 10-23-2022 Adult depression scr eening assessment DEPRESSION SCREENING [facility] Start: 07-23-2022 Influenza vaccination INFLUENZA (#1) [facility] Start: 02-25-2022 COVID-19 VACCINE (4 - Booster for Moderna series) COVID-19 VACCINE (4 - Booster for Moderna series) [facility] Start: 12-22-2021 COVID-19 VACCINE (4 - Booster for Moderna series) COVID-19 VACCINE (4 - Booster for Moderna series) [facility] Start: 12-22-2021 COVID-19 VACCINE (5 - Booster for Moderna series) COVID-19 VACCINE (5 - Booster for Moderna series) [facility] Start: 12-22-2021 COVID-19 VACCINE (5 - Moderna series) COVID-19 VACCINE (5 - Moderna series) [facility] Start: 11-22-2021 ADVANCE DIRECTIVE DISCUSSION ADVANCE DIRECTIVE DISCUSSION [facility] Start: 11-22-2021 DEPRESSION ASSESSMENT DEPRESSION ASS ESSMENT [facility] Start: 02-22-2020 Colonoscopy COLONOSCOPY [facility] Start: 02-22-2020 COLORECTAL CANCER SCREENING COLORECTAL CANCER SCREENING [facility] Start: 02-22-2020 Screening for malign ant neoplasm of colon [facility] Start: 2018 BONE DENSITY BONE DENSITY [facility] Start: 2018 Bone Density Screening Bone Density Screening [facility] Start: 2018 Pneumococcal Vaccine : 65+ (1 - PCV) Pneumococcal Vaccine: 65+ (1 - PCV) [facility] Start: 2018 Pneumococcal Vaccine : 65+ (1 of 1 - PCV) Pneumococcal Vaccine: 65+ (1 of 1 - PCV) [facility] Start: 2018 Pneumococcal Vaccine : 65+ Years (1 of 1 - PCV) Pneumococcal Vaccine: 65+ Years (1 of 1 - PCV) [facility] Start: 2018 PNEUMOCOCCAL: 65+ (1 - PCV) PNEUMOCOCCAL: 65+ (1 - PCV) [facility] Start: 2018 PNEUMOVAX AGE 65 AND OVER WITH 5YR LOOKBACK (#1) PNEUMOVAX AGE 65 AND OVER WITH 5YR LOOKBACK (#1) [facility] Start: 2018 Screening for osteoporosis Bone Dens ity Screening [facility] Start: 06-18-2015 Lipid 1996 panel - S george or Plasma Lipid Screening [facility] Start: 06-18-2015 Lipid panel Lipid Screening [facility] Start: 06-18-2015 LIPID SCREEN LIPID SCREEN [facility] Start: 05-06-2015 Shingrix Vaccine (2 of 3) Moran grix Vaccine (2 of 3) [facility] Start: 2013 RSV Immunization age d 60 or older (1 - 1-dose 60+ series) RSV Immunization aged 60 or older (1 - 1-dose 60+ series) [facility] Start: 2013 RSV Immunization for Adults (1 - Risk 60-74 years 1-dose series) RSV Immunization for Adults (1 - Risk 60-74 years 1-dose series) [facility] Start: 2013 RSV Vaccine (1 - 1-d ose 60+ series) RSV Vaccine (1 - 1-dose 60+ series) [facility] Start: 2013 RSV Vaccine (1 - Ris k 60-74 years 1-dose series) RSV Vaccine (1 - Risk 60-74 years 1-dose series) [facility] Start: 2012 DIABETES SCREEN DIABETES SCREEN [facility] Start: 2012 Diabetes Screening Diabetes Screenin g [facility] Start: 2008 Influenza vaccination LUNG CANCER [facility] Start: 2003 Influenza vaccination LUNG CANCER [facility] Start: 2003 Pneumococcal Vaccine : 50+ (1 of 1 - PCV) Pneumococcal Vaccine: 50+ (1 of 1 - PCV) [facility] Start: 2003 SHINGRIX VACCINE (1 of 2) MORAN GRIX VACCINE (1 of 2) [facility] Start: 2003 Zoster Vaccines (1 of 2) Zoste r Vaccines (1 of 2) [facility] Start: 1998 COLOGUARD (FIT-DNA) COLOGUARD (FIT-D NA) [facility] Start: [address] COLONOGRAPHY [facility] Start: 1998 FECAL OCCULT BLOOD FECAL OCCULT BLOO D [facility] Start: 1998 Screening for malign ant neoplasm of colon [facility] Start: 1998 SIGMOIDOSCOPY SIGMOIDOSCOPY [facility] Start: 1993 Mammography [facility] Start: 1993 Screening for malign ant neoplasm of breast [facility] Start: 1972 DTaP/Tdap/Td Vaccine s (1 - Tdap) DTaP/Tdap/Td Vaccines (1 - Tdap) [facility] Start: 1972 Pneumococcal Vaccine : 50+ Years (1 of 2 - PCV) Pneumococcal Vaccine: 50+ Years (1 of 2 - PCV) [facility] Start: 1972 Urine microalbumin profile DTAP,TDAP ,TD (1 - Tdap) [facility] Start: 1971 Anxiety Screening Anxiety Screening [facility] Start: 1971 Depression Screening Depression Scre ening [facility] Start: 1971 Diabetes: Estimated Glomerular Filtration Rate for Kidney Health Diabetes: Estimated Glomerular Filtration Rate for Kidney Health [facility] Start: 1971 Diabetes: Urine Albumin-Creatinine Ratio for Kidney Health Diabetes: Urine Albumin-Creatinine Ratio for Kidney Health [facility] Start: 1971 HEPATITIS C SCREENING HEPATITIS C [facility] Start: 1971 Hepatitis C screening Hepatitis C [facility] Start: 1965 Depression Monitoring Depression Mon itoring [facility] Start: 1965 Depression Screening Depression Scre enlinda [facility] Start: 1963 Diabetic foot examination Diabetes: Foot Exam [facility] Start: 1963 Glaucoma screening Diabetes: R etinopathy Screening [facility] Start: 1963 Preventive dental service Diabetes: Dental Exam [facility] Start: 1959 Pneumococcal Vaccine : 65+ Years (1 of 2 - PCV) Pneumococcal Vaccine: 65+ Years (1 of 2 - PCV) [facility] Start: 1953 Creatinine measurement Creatinine Le jana [facility] Start: 1953 Echocardiography Echocardiogram [facility] Start: 1953 Hemoglobin A1c measurement Rylie betes: Hemoglobin A1C [facility] Start: 1953 Lipid panel Lipid Panel [facility] Start: 1953 Potassium measurement Potassium Leve l [facility] Start: 1953 Screening for malign ant neoplasm of colon [facility] Start: 1953 Screening for osteoporosis Bone Dens ity Scan [facility] Anion gap in Serum o r Plasma [facility] Anion gap in Serum o r Plasma [facility] Anion gap in Serum o r Plasma [facility] Anion gap in Serum o r Plasma [facility] Anion gap in Serum o r Plasma [facility] BUN/Creatinine ratio [facility] BUN/Creatinine ratio [facility] BUN/Creatinine ratio [facility] BUN/Creatinine ratio [facility] BUN/Creatinine ratio [facility] Calcium [Mass/volume ] in Serum or Plasma [facility] Calcium [Mass/volume ] in Serum or Plasma [facility] Calcium [Mass/volume ] in Serum or Plasma [facility] Calcium [Mass/volume ] in Serum or Plasma [facility] Calcium [Mass/volume ] in Serum or Plasma [facility] Carbon dioxide, tota l [Moles/volume] in Central venous blood [facility] Carbon dioxide, tota l [Moles/volume] in Central venous blood [facility] Carbon dioxide, tota l [Moles/volume] in Central venous blood [facility] Carbon dioxide, tota l [Moles/volume] in Central venous blood [facility] Carbon dioxide, tota l [Moles/volume] in Central venous blood [facility] Creatinine [Mass/vol ume] in Serum or Plasma [facility] Creatinine [Mass/vol ume] in Serum or Plasma [facility] Creatinine [Mass/vol ume] in Serum or Plasma [facility] Creatinine [Mass/vol ume] in Serum or Plasma [facility] Creatinine [Mass/vol ume] in Serum or Plasma [facility] Erythrocyte mean corpuscular volume determination [facility] Erythrocyte mean corpuscular volume determination [facility] Erythrocyte mean corpuscular volume determination [facility] Erythrocyte mean corpuscular volume determination [facility] Erythrocyte mean corpuscular volume determination [facility] Glucose [Mass/volume ] in Serum or Plasma [facility] Glucose [Mass/volume ] in Serum or Plasma [facility] Glucose [Mass/volume ] in Serum or Plasma [facility] Glucose [Mass/volume ] in Serum or Plasma [facility] Glucose [Mass/volume ] in Serum or Plasma [facility] Hematocrit [Volume Fraction] of Blood [facility] Hematocrit [Volume Fraction] of Blood [facility] Hematocrit [Volume Fraction] of Blood [facility] Hematocrit [Volume Fraction] of Blood [facility] Hematocrit [Volume Fraction] of Blood [facility] Hemoglobin [Mass/vol ume] in Blood [facility] Hemoglobin [Mass/vol ume] in Blood [facility] Hemoglobin [Mass/vol ume] in Blood [facility] Hemoglobin [Mass/vol ume] in Blood [facility] Hemoglobin [Mass/vol ume] in Blood [facility] Leukocytes [#/volume ] in Blood [facility] Leukocytes [#/volume ] in Blood [facility] Leukocytes [#/volume ] in Blood [facility] Leukocytes [#/volume ] in Blood [facility] Leukocytes [#/volume ] in Blood [facility] Mean corpuscular hemoglobin concentration determination [facility] Mean corpuscular hemoglobin concentration determination [facility] Mean corpuscular hemoglobin concentration determination [facility] Mean corpuscular hemoglobin concentration determination [facility] Mean corpuscular hemoglobin concentration determination [facility] Mean corpuscular hemoglobin determination [facility] Mean corpuscular hemoglobin determination [facility] Mean corpuscular hemoglobin determination [facility] Mean corpuscular hemoglobin determination [facility] Mean corpuscular hemoglobin determination [facility] Measurement of renal function [facility] Measurement of renal function [facility] Measurement of renal function [facility] Measurement of renal function [facility] Measurement of renal function [facility] End: 03-29-2026 MR Brain WO contrast MRI BRAIN [facility] Radiology Routine Essential tremor Dyskinesia, tardive 1 Occurrences starting 02/27/2025 until 03/29/2026 [facility] Work Phone: Comment on above: 1 Occurrences starti ng 02/27/2025 until 03/29/2026 Neutrophil count [facility] Neutrophil count [facility] Neutrophil count [facility] Neutrophil count [facility] Neutrophil count [facility] Neutrophil percent differential count [facility] Neutrophil percent differential count [facility] Neutrophil percent differential count [facility] Neutrophil percent differential count [facility] Neutrophil percent differential count [facility] End: 07-30-2024 NM BRAIN TREMOR SPECT/CT NM BRAIN TREMOR SPECT/CT Radiology Routine 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) Parkinsonism, unspecified Parkinsonism type (HCC) 1 Occurrences starting 07/01/2023 until 07/30/2024 [facility] Work Phone: Comment on above: 1 Occurrences starti ng 07/01/2023 until 07/30/2024 NM BRAIN TREMOR SPECT/CT NM BRAI N TREMOR SPECT/CT Radiology Routine 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) Parkinsonism, unspecified Parkinsonism type 09/21/2023 2:02 PM EDT [facility] Work Phone: OUTSIDE PROCEDURE SCAN OUTSIDE P ROCEDURE SCAN Procedures Ordered: 07/20/2024 [facility] Comment on above: Ordered: 07/20/2024 Patient Education [facility] Work Phone: Patient referral [facility] Work Phone: Platelets [#/volume] in Blood [facility] Platelets [#/volume] in Blood [facility] Platelets [#/volume] in Blood [facility] Platelets [#/volume] in Blood [facility] Platelets [#/volume] in Blood [facility] Potassium measurement [facility] Potassium measurement [facility] Potassium measurement [facility] Potassium measurement [facility] Potassium measurement [facility] Red blood cell count [facility] Red blood cell count [facility] Red blood cell count [facility] Red blood cell count [facility] Red blood cell count [facility] Red cell distributio n width determination [facility] Red cell distributio n width determination [facility] Red cell distributio n width determination [facility] Red cell distributio n width determination [facility] Red cell distributio n width determination [facility] Respiratory pathogen s DNA and RNA panel - Respiratory specimen by ENRIQUE with probe detection [facility] Serum chloride measurement [facility] Serum chloride measurement [facility] Serum chloride measurement [facility] Serum chloride measurement [facility] Serum chloride measurement [facility] Sodium measurement [facility] Sodium measurement [facility] Sodium measurement [facility] [facility] Sodium measurement [facility] Sodium measurement [facility] Urea nitrogen [Mass/volume] in Serum or Plasma [facility] Urea nitrogen [Mass/volume] in Serum or Plasma [facility] Urea nitrogen [Mass/volume] in Serum or Plasma [facility] Urea nitrogen [Mass/volume] in Serum or Plasma [facility] Urea nitrogen [Mass/volume] in Serum or Plasma [facility] Urine culture [facility] US carotid artery duplex bilateral Vascular US carotid artery duplex bilateral CV Vascular Ultrasound Routine Dizziness and giddiness 11/10/2024 3:39 PM EST [facility] Work Phone: End: 07-10-2024 XR Abdomen Single view [facility] Work Phone: Comment on above: Once for 1 Occurrenc es starting 07/10/2024 until 07/10/2024 End: 06-01-2025 XR Chest 2 Views [facility] Work Phone: Comment on above: Once for 1 Occurrenc es starting 06/01/2025 until 06/01/2025 XR Chest PA and Lateral XR CHEST 2V FRONTAL/LAT Radiology Routine Presence of cardiac pacemaker 04/02/2025 9:35 AM EDT [facility] Work Phone: [facility] Immunizations Immunization Date Immunization Notes Care Provider [facility] 01-19-[address] Adrienne Byers Work Phone: [facility] 10-25-[address] Adrienne Byers Work Phone: [facility] 08-18-2023 Human rabies vaccine from Chicken fibroblast culture JAXON KUHN MD [facility] 08-11-2023 Human rabies vaccine from Chicken fibroblast culture JAXON KUHN MD [facility] 08-07-2023 Human rabies vaccine from Chicken fibroblast culture JAXON KUHN MD [facility] 08-07-2023 rabies vaccine, unspecified formulation JAXON KUHN MD [facility] 08-04-2023 Human rabies vaccine from Chicken fibroblast culture JAXON KHUN MD [facility] 10-27-2021 influenza virus vaccine, unspecified formulation DR LARY WHEAT DO [facility] 10-27-2021 influenza, injectabl e, quadrivalent, preservative free Dr. Adrienne Byers Work Phone: [facility] 10-27-2021 SARS-CoV-2 (COVID-19 ) mRNA-[address] LARY WHEAT DO [facility] 02-27-2021 SARS-CoV-2 (COVID-19 ) mRNA-[address] LARY WHEAT DO [facility] 01-30-2021 SARS-CoV-2 (COVID-19 ) mRNA-[address] LARY WHEAT DO [facility] Comment on above: Result Comment: 2020: [id number] 11-22-2020 influenza, injectabl e, quadrivalent, preservative free Dr. Adrienne Byers Work Phone: [facility] 11-22-2020 SARS-CoV-2 (COVID-19 ) mRNA-1273 vaccine ADRIENNE BYERS DO [facility] 08-30-2020 influenza, injectabl e, quadrivalent, preservative free; Translations: [Fluarix PF Quadrivalent ] DR LARY WHEAT DO [facility] 08-03-2019 influenza virus vaccine, unspecified formulation DR LARY WHEAT DO [facility] Comment on above: Result Comment: [facility] 08-03-2019 Influenza, high dose seasonal Dr. Marci Lopez DO Work Phone: [facility] 08-03-2019 influenza, high dose seasonal, preservative-free Dr. Adrienne Byers Work Phone: [facility] 09-09-2018 influenza virus vaccine, unspecified formulation NOREEN HICKS MD [facility] 09-09-2018 influenza, injectabl e, quadrivalent, preservative free Dr. Adrienne Byers Work Phone: [facility] 09-03-2017 influenza virus vaccine, unspecified formulation NOREEN HICKS MD [facility] 09-03-2017 influenza, injectabl e, quadrivalent, preservative free Dr. Adrienne Byers Work Phone: [facility] 09-18-2016 influenza virus vaccine, unspecified formulation NOREEN HICKS MD [facility] 09-18-2016 influenza, injectabl e, quadrivalent, preservative free Dr. Adrienne Byers Work Phone: [facility] 03-11-2015 tetanus toxoid, redu son diphtheria toxoid, and acellular pertussis vaccine, adsorbed DR LARY WHEAT DO [facility] 03-11-2015 zoster vaccine, live DR ÁLVARO WHEAT DO [facility] 09-22-2014 Influenza virus vaccine W [facility] Payers Date Payer Category Payer Self-pay [id number] 2022 Medicare (Managed Care) [employer] G O[employer] PLUS [id number] 2022 Medicare HMO [id number] 1.13.680. [id number] 2021 Unknown [employer]M BLUE CARD PPO OOS [id number] 2021-Present [phone] [address] [place] [address] PPO [id number] 2019 Medicare HUMANA MEDICARE HU[employer]NA MEDICARE PPO [id number] 2019-Present [phone] [address] [address] [place] [address] PPO [id number]. [id number] 2019 Medicare 1.2.840.012396. 1.13.159. [id number] 2017 Unknown [id number] 1.2.840.335181.1.13.159. 2.7.3.854280.315 2015 Unknown [id number] 2013 Medicare [id number] 1955 Unknown [id number] .840.1.565620.3.579. 2. 1955 Unknown [id number] .840.1.218823.3.579. 2. 1955 Unknown [id number] 2.840.1.004517.3.579. 2. 1955 Unknown [id number] 2.840.1.456122.3.579. 2.7 1953 Unknown [id number] 2.840.1.769718.3.579. 2. 1955 Unknown [id number] 2.16.840.1.967111.3.579. 2. 1955 Unknown [id number] 2.16.840.1.106135.3.579. 2. 1955 Unknown [id number] 2.16.840.1.936452.3.579. 2. 1955 Unknown [id number] 2.16.840.1.089632.3.579. 2. 1955 Unknown [id number] 2.16.840.1.362937.3.579. 2. 1953 Unknown [id number] 2.16.840.1.399198.3.579. 2. 1955 Unknown [id number] 2.840.1.523774.3.579. 2. 1953 Unknown [id number] 2.16.840.1.166484.3.579. 2. 1955 Unknown [id number] 2.16.840.1.248610.3.579. 2. 1955 Unknown [id number] 2.16.840.1.942172.3.579. 2. 1955 Unknown [id number] 2.16.840.1.176499.3.579. 2. 1955 Unknown [id number] 2.16.840.1.880287.3.579. 2. 1955 Unknown [id number] 2.16.840.1.220341.3.579. 2. 1955 Unknown [id number] 2.16.840.1.325023.3.579. 2. 1955 Unknown [id number] 2.16.840.1.248560.3.579. 2 Unknown [id number] 2.16.840.1.482173.3.579. 2.462 Unknown [id number] 2.16.840.1.925780.3.579. 2.462 Unknown [id number] 2.16.840.1.116583.3.579. 2.462 Unknown [id number] 2.16.840.1.944217.3.579. 2.462 Unknown [id number] 2.16.840.1.874643.3.579. 2.462 Unknown [id number] 2.16.840.1.320730.3.579. 2.462 Unknown [id number] 2.16.840.1.631448.3.579. 2.462 Unknown [id number] 2.16.840.1.685261.3.579. 2.462 Unknown [id number] 2.16.840.1.334897.3.579. 2.462 Unknown [id number] 2.16.840.1.735827.3.579. 2.462 Unknown [id number] 2.16.840.1.239978.3.579. 2.462 Unknown [id number] 2.16.840.1.150927.3.579. 2.462 Unknown [id number] 2.16.840.1.024106.3.579. 2.462 Unknown [id number] 2.16.840.1.855059.3.579. 2.462 Unknown [id number] 2.16.840.1.862854.3.579. 2.462 Unknown [id number] 2.16.840.1.796866.3.579. 2.462 Unknown [id number] 2.16.840.1.575148.3.579. 2.462 Unknown [id number] 2.16.840.1.833464.3.579. 2.462 Unknown [id number] 2.16.840.1.539051.3.579. 2.462 Unknown [id number] 2.16.840.1.830978.3.579. 2.462 Unknown [id number] 2.16840.1.447686.3.579. 2.462 Unknown [id number] 2.16840.1.150685.3.579. 2.462 Unknown [id number] 2.16840.1.605743.3.579. 2.462 Unknown [id number] 2.16840.1.892081.3.579. 2.462 Unknown [id number] 2.840.1.287444.3.579. 2.462 Unknown [id number] 2.840.1.341678.3.579. 2.462 Unknown [id number] 2.840.1.096481.3.579. 2.462 Unknown [id number] 2.840.1.145221.3.579. 2.462 Unknown [id number] 2.840.1.140188.3.579. 2.462 Unknown [id number] 2.840.1.894525.3.579. 2.462 Unknown [id number] 2.840.1.072700.3.579. 2.462 Unknown [id number] 2.840.1.322788.3.579. 2.462 Unknown [id number] 2.840.1.588716.3.579. 2.462 Unknown [id number] 2.840.1.002343.3.579. 2.462 Unknown [id number] 2.840.1.655494.3.579. 2.462 Unknown [id number] 2.840.1.020556.3.579. 2.462 Unknown [id number] 2.840.1.725135.3.579. 2.462 Unknown [id number] 2.16.840.1.948975.3.579. 2.462 Unknown [id number] 2.16.840.1.642363.3.579. 2.462 Unknown [id number] 2.16.840.1.544137.3.579. 2.462 Unknown [id number] 2.16.840.1.828402.3.579. 2.462 Unknown [id number] 2.16840.1.549101.3.579. 2.462 Unknown [id number] 2.16.840.1.501888.3.579. 2.462 Unknown [id number] 2.840.1.266694.3.579. 2.462 Unknown [id number] 2.840.1.647167.3.579. 2.462 Unknown [id number] 2.840.1.963773.3.579. 2.462 Unknown [id number] 2.840.1.899310.3.579. 2.462 Unknown [id number] 2.840.1.568145.3.579. 2.462 Unknown [id number] 2..840.1.904891.3.579. 2.462 Unknown [id number] 2.16840.1.842801.3.579. 2.462 Unknown [id number] 2.840.1.312635.3.579. 2.462 Unknown [id number] 2.840.1.939948.3.579. 2.462 Unknown [id number] 2.840.1.593740.3.579. 2.462 Unknown [id number] 2.16.840.1.764491.3.579. 2.462 Unknown [id number] 2.16.840.1.425297.3.579. 2.462 Unknown [id number] 2.840.1.947620.3.579. 2.462 Unknown [id number] 2.16.840.1.770288.3.579. 2.462 Unknown [id number] 2.16.840.1.906348.3.579. 2.462 Unknown [id number] 2.16.840.1.901450.3.579. 2.462 Unknown [id number] 2.16.840.1.362917.3.579. 2.462 Unknown [id number] 2.16.840.1.896873.3.579. 2.462 Unknown [id number] 2.16.840.1.745195.3.579. 2.462 Social History Date Type Detail Facility Start: 10-04-2020 End: 02-27-2025 Ex-smoker (finding) [facility] Start: 1955 Sex Assigned At Female [facility] Start: 12-23-1963 End: 12-23-2008 History of tobacco use Current smoker [facility] Start: 12-23-1963 End: 12-23-2008 History of tobacco use Cigarette Smoker [facility] Start: 07-10-2021 End: 02-27-2025 Alcohol intake Current non-drinker of alcohol (finding) [facility] Start: 05-25-2022 End: 05-12-2023 Exposure to SARS-CoV-2 (event) Not sure [facility] Start: 07-10-2021 End: 05-12-2023 Cigarettes smoked current (pack per day) - Reported 1.5 [facility] Start: 07-10-2021 End: 02-27-2025 Tobacco use and exposure Smokeless tobacco non-user [facility] Start: 05-12-2023 End: 06-06-2025 Tobacco use panel [facility] Adult Depression Screening Assessment 3 [facility] Start: 10-23-2021 Gender identity Identifies as female gender (finding) [facility] Start: 10-23-2021 Sexual orientation Heterosexual (fin ding) [facility] Start: 09-28-2023 End: 02-29-2024 Tobacco smoking status NHIS Unknown if ever smoked [facility] Start: 11-18-2014 None [facility] Start: 11-18-2014 Spouse/ Signif icant Other [facility] Start: 11-18-2014 Non-smoker [facility] Start: 10-01-2023 Cigarettes [facility] Start: 1955 Sex assigned at Not on file S [facility] Start: 06-16-2024 End: 03-10-2025 Sex Female (finding) [facility] [employer] Data NEGATED: Highlighted row [facility] NEGATED: Highlighted row [facility] Medical Equipment Procedure Code Equipment Code Equipment Origin al Text Equipment Identifier Dates [employer] ICD G247 FDA Start: 05-12-2022 [employer] ICD G247 FDA Start: 05-12-2022 [employer] ICD G247 FDA Start: 05-12-2022 [employer] ICD G247 FDA Start: 05-12-2022 [employer] ICD G247 FDA Start: 05-12-2022 [employer] ICD G247 FDA Start: 05-12-2022 [employer] ICD G247 FDA Start: 05-12-2022 [employer] ICD G247 FDA Start: 05-12-2022 [employer] ICD G247 FDA Start: 05-12-2022 Icd-05/12/2022 [id number] Start: 05-12-2022 Comment on above: Description: [facility] G24 7 RA [id number] RV [id number] LV [id number] [employer] ICD G247 FDA Start: 05-12-2022 [employer] ICD G247 FDA Start: 05-12-2022 [id number] Start: 05-12-2022 [id number] [id number] Start : 05-12-2022 [id number] Start : 05-12-2022 [employer] ICD G247 FDA Start: 05-12-2022 [employer] ICD G247 FDA Start: 05-12-2022 FDA Start: 05-12-2022 [employer] ICD G247 FDA Start: 05-12-2022 [employer] ICD G247 FDA Start: 05-12-2022 [employer] ICD G247 FDA Start: 05-12-2022 [employer] ICD G247 FDA Start: 05-12-2022 FDA Start: 05-12-2022 [employer] ICD G247 FDA Start: 05-12-2022 [employer] ICD G247 FDA Start: 05-12-2022 FDA Start: 05-12-2022 FDA Start: 05-12-2022 Goals Date Patient Goal Desired Activity /State Functional Status Date Assessment Result Facility 06-11-2025 Functional status Bedrest [facility] Work Phone: 05-03-2025 Functional status Ambulates;Jose r;Bedside Commode [facility] Work Phone: 04-26-2025 Functional status Bedrest [facility] Work Phone: 04-25-2025 Functional status With Assist of 1 [facility] Work Phone: 04-20-2025 Functional status Ambulates;Bath room Privilege [facility] Work Phone: 04-19-2025 Functional status Standard Walker [facility] Work Phone: 03-15-2024 Functional status Ambulates;Up ad ann marie [facility] Work Phone: 02-29-2024 Functional status Chair [facility] Work Phone: 10-28-2023 Functional Status flight to bed [facility] 10-12-2023 Functional status Activity Abili ty Standby Assist [facility] Work Phone: 10-11-2023 Functional status Ambulates [facility] Work Phone: 10-07-2023 Functional status Ambulates [facility] Work Phone: 10-06-2023 Functional status Rolling Walker [facility] Work Phone: 10-01-2023 Functional status Ambulates [facility] Work Phone: 08-11-2023 Functional Status Room check performed [facility] 08-04-2023 Functional Status Standard Safet y ID band on, Call device within reach, Bed in low position, Wheels locked, Upper/Half-Length side-rails up, Bedside Cart Locked, Safety level maintained [facility] 08-20-2022 Functional Status Minimum assistance [facility] 08-19-2022 Functional Status 20 [facility] 08-19-2022 Functional Status Standard Safet y ID band on, Call device within reach, Bed in low position, Wheels locked, Upper/Half-Length side-rails up, Phone within reach, personal items within reach, Visitor at bedside, Safety level maintained [facility] 05-22-2022 Functional Status [facility]ing [facility] 04-26-2022 Functional Status Independent [facility] 04-03-2022 Functional Status [facility] 04-03-2022 Functional Status [facility] 04-02-2022 Functional Status [facility] 04-02-2022 Functional Status [facility] 02-05-2015 Are you deaf, or do you have serious difficulty hearing No 02/05/2015 4:06 PM ARONT Armida Ballard LPN No [facility] 02-05-2015 Are you blind, or do you have serious difficulty seeing, even when wearing glasses No 02/05/2015 4:06 PM ARONT Armida Ballard LPN No [facility] 02-05-2015 Do you have serious difficulty walking or climbing stairs No 02/05/2015 4:06 PM EDT Armida Ballard LPN No [facility] 02-05-2015 Do you have difficul ty dressing or bathing No 02/05/2015 4:06 PM EDT Armida Ballard LPN No [facility] 02-05-2015 Because of a physica l, mental, or emotional condition, do you have difficulty doing errands alone such as visiting a physician's office or shopping No 02/05/2015 4:06 PM EDArmida Sharma LPN No [facility] Mental Status Date Assessment Result Facility 06-11-2025 Cognitive function Voice/Name [facility] Work Phone: 05-03-2025 Cognitive function Voice/Name [facility] Work Phone: 04-25-2025 Cognitive function Voice/Name;Touch/Shaki ng [facility] Work Phone: 04-20-2025 Cognitive function Voice/Name [facility] Work Phone: 04-19-2025 Cognitive function Level Of Cons ciousness Awake;Alert;Follows Commands [facility] Work Phone: 03-15-2024 Cognitive function Voice/Name [facility] Work Phone: 03-13-2024 Cognitive function Cooperative [facility] Work Phone: 02-29-2024 Cognitive function Voice/Name [facility] Work Phone: 10-12-2023 Cognitive function Voice/Name [facility] Work Phone: 10-07-2023 Cognitive function Voice/Name [facility] Work Phone: 10-06-2023 Cognitive function Voice/Name [facility] Work Phone: 10-01-2023 Cognitive function Voice/Name [facility] Work Phone: 09-28-2023 Cognitive function Voice/Name [facility] Work Phone: 08-04-2023 Mental Status Orientation Oriented x 4 [facility] 08-20-2022 Mental Status Orientation Oriented x 4 [facility] 08-19-2022 Mental Status [facility] 05-22-2022 Mental Status Oriented x 4 [facility] 04-25-2022 Mental Status Oriented x 4 [facility] 04-03-2022 Mental Status [facility] 04-02-2022 Mental Status [facility] 02-05-2015 Because of a physica l, mental, or emotional condition, do you have serious difficulty concentrating, remembering, or making decisions No 02/05/2015 4:06 PM EDT Armida Ballard LPN No [facility] Clinical Notes 02-21-2015 to 06-29-2025 Michel Ibrahim - 06/19/2025 11:08 AM EDTTelephone Encounter - Dannie Barros RN - 06/16/2025 4:11 PM EDTTelephone Encounter - Dannie Barros RN - 06/16/2025 4:11 PM EDT Note Date & Type Note Facility 06-29-2025 Note HNO ID: [id number] Author: CECILIA OWENS APRN.SALES CLERK [employer] Service: ? Author Type: Nurse Practitioner Type: Progress Notes Filed: 06/29/2025 16:44 Note Text: [facility] - FOLLOW UP EVALUATION Primary Movement Disorders Neurologist: Leyla Murphy MD Primary Movement Disorders RICARDO: Marci Lopez DO [address] [facility] [address] Dear Marci Lopez DO: I had the pleasure of seeing Ms. Caro for follow-up today. As you know she is a 70 year old right-handed female with a history of left hand tremor since 2021. She is seen with her . Subjective Previous Plan- 02/27/2025 Visit: - Start taking Ingrezza 40 mg daily for mouth movements; prescription sent to [facility]. Once this is controlled [...] today. She was in the hospital in [place] for pneumonia in February. Looking into long [...] and is willing to rechallenge [facility] Current Outpatient Medications Medication Sig ondansetron orally [...] (Patient taking d (more content not included)... [facility] 06-19-2025 History of Presen t illness Narrative Discontinuation Assessment completed for the medication Austedo XR. Patient no longer requires [facility] Patient Management Program Services at this time for this medication. Michel Ibrahim CPhT Neurology, Cardiology & Infectious Disease [facility] documented in this encounter [facility] 06-19-2025 Note HNO ID: [id number] Author: ?, ?, ? Service: ? Author Type: ? Type: Progress Notes Filed: 06/19/2025 11:11 Note Text: Discontinuation Assessment completed for the medication Austedo XR. Patient no longer requires [facility] Patient Management Program Services at this time for this medication. Michel Ibrahim [facility] Neurology, Cardiology AND Infectious Disease [facility] 06-16-2025 Telephone encount er Note S: Patient's [...] weeks) Protocols used: Abdominal Pain - ADULT-AH [facility] 06-16-2025 Miscellaneous Notes Formattin g of this [...] Pain - ADULT-AH documented in this encounter [facility] 06-11-2025 Discharge summary Note Date/Time June 11, 2025 12:08pm [facility] Medical Records Department [address] [place] [id number] Discharge Summary 06/11/25 1206 MR#: [id number] Acct: [id number] Name: MANSI CARO Rep #:[id number] : 1955 70 From: Ganesh Amaya PCP: Marci Lopez DO Status:ADM I N Location: [facility] [id number] Providers Date of Admission: 06/02/25 Date of Discharge: 06/11/25 Primary Care Physician: Dr. Marci Lopez DO Consultations 06/06/25 13:36 Consult: Gastroenterology Routine Consulting Provider: Shan Lockett Reason for Consult: N/V, Duodenal stenosis, [...] further said she had outside PFT in [place] by dry cell tester. 06/07: On levofloxacin. 06/09: Discontinue levofloxacin. Had [...] of the bed: Discussed with the patient, telehealth case manager. Continue PT and OT 06/10 : She [...] well. Insurance company did not approve for long term. Patient has been agreed for home discharge. Discussed with the telehealth case manageroperations support manager exam General: Alert, Oriented x3, Cooperative [...] % (Auto) 60.0, Lymph % (Auto) 23.2, [place] % (Auto) 11.5 H, Eos % (Auto) [...] Provider: Ganesh Kiran Primary Care Provider: Marci Lopez Consulting Providers: Ben Johnson; Shan Lockett Discharge [...] Marci Lopez DO [Primary Care Provider] - Shan Lockett DO [Med Staff - Active Staff] - Within 1 Month Lluvia Kilpatrick NP-C [Med Staff - Adv Practice Prof] - Within 1 Month (For COPD evaluation) Disposition Disposition (needs filled in before D/C Order can be placed): Home Health Service Charges/Coding Visit Charges Inpatient E&M: 37373 Disch Hosp >30min 06/11/25 1208 <Electronically signed by Ganesh Kiran MD> Cosigner Signature (if applicable): CC: Dr. Ganesh Kiran MD; Marci Lopez, ~ Signed [facility] Work Phone: 1(954) 586-897207-21-2025 Discharge summary Author Ganesh Kiran [facility] Note Date/Time June 11, 2025 12:0 5pm [facility] Medical Records Department [address] [place] [address] Instructions for Home/Discharge Instructions 06/11/25 1001 MR#: [id number] Acct: [id number] Name: MANSI CARO Rep #:[id number] : 1955 70 From: Ganesh Amaya PCP: Marci Lopez DO Status:ADM I N Discharge Instructions DC [...] Provider: Ganesh Kiran Primary Care Provider: Marci Lopez Consulting Providers: Ben Johnson; Shan Lockett Discharge [...] Marci Lopez DO [Primary Care Provider] - Lluvia Kilpatrick ROAD EQUIPMENT OPERATOR-C [Med Staff - Adv Practice Prof] - Within 1 Month (For COPD evaluation) Shan Lockett DO [Med Staff - Active Staff] - Within 1 Month Disposition Disposition (needs filled in before D/C Order can be placed): Home Health Service 06/11/25 1202<Electronically signed by Ganesh Kiran MD>Ganesh Kiran MD CC: Dr. Ben Johnson DO; Marci Lopez DO; Shan Lockett DO ~ Signed [facility] Work Phone: 1(259) 163-923007-21-2025 Hospital Discharge instructionsAdditional Instructions Date of Discharge: 06/11/25[facility] Work Phone: 1(482) 864-503907-21-2025 [facility]07-20-2025 Progress note Author Ganesh Kiran [facility] Note Date/Time June 10, 2025 3:45 pm [facility] Medical Records Department [address] [place] [address] Progress Note - Hospitalist 06/10/25 1544 MR#: [id number] Acct: [id number] Name: MANSI CARO Rep #:[id number] : 1955 70 From: Gnaesh Amaya PCP: Marci Lopez DO Status:ADM I N Location: [place] [address] Objective Data Objective Data Vital Signs: Vital [...] further said she had outside PFT in [place] by dry cell tester. 06/07: On levofloxacin. 06/09: Discontinue levofloxacin. Had [...] of the bed: Discussed with the patient, telehealth case manager. Continue PT and OT 06/10 close he [...] Glucose 101 Charges/Coding Visit Charges Inpatient E&M: 50964 Subs Hosp L2 06/10/25 7821 <Electronically signed by Ganesh Kiran MD> Cosigner Signature (if applicable): CC: ~ Signed [facility] Work Phone: 1(785) 390-889307-19-2025 Progress note Author Ganesh Kiran [facility] Note Date/Time June 09, 2025 1:15 pm [facility] Medical Records Department [address] [place] [address] Progress Note - Hospitalist 06/09/25 1309 MR#: [id number] Acct: [id number] Name: MANSI CARO Rep #:[id number] 48 : 1955 70 From: Ganesh Amaya PCP: Marci Lopez DO Status:ADM I N Location: [place] [address] Objective Data Objective Data Vital Signs: Vital [...] further said she had outside PFT in [place] by dry cell tester. 06/07: On levofloxacin. 06/09: Discontinue levofloxacin. Had [...] of the bed: Discussed with the patient, telehealth case manager. Continue PT and OT Discharge plan: Patient [...] Glucose 101 Charges/Coding Visit Charges Inpatient E&M: 76072 Subs Hosp L2 06/09/25 1315 <Electronically signed by Ganesh Kiran MD> Cosigner Signature (if applicable): CC: ~ Signed [facility] Work Phone: 1(459) 525-916207-19-2025 Telephone encounter Note* Telephone Encounter - Paige Vick - 06/09/2025 7:46 AM EDT Name of caller Mirlande Contact phone number: [phone] Relationship to Patient: spouse/SO Provider: Dr. Marci Lopez Practice: [facility] Chief Complaint/Reason for Call: The patient , Song, states his might be released from [facility] on 06-09-2025. Also, the covering doctor at the hospital states the patient might have psychiatrist issues with 8 other things wrong with her. The patient will be discharged to [facility]. Please call the patient at [phone] to advise Best time of day caller can be reached: Anytime Patient advised that office/PCP has 24-48 business hours to return their call: Yes [id number] Miscellaneous Notes* Telephone Encounter - Paige Vick - 06/09/2025 7:46 AM EDT Name of caller Mirlande Contact phone number: [phone] Relationship to Patient: spouse/SO Provider: Dr. Marci Lopez Practice: [facility] Chief Complaint/Reason for Call: The patient , Song, states his might be released from [facility] on 06-09-2025. Also, the covering doctor at the hospital states the patient might have psychiatrist issues with 8 other things wrong with her. The patient will be discharged to [facility]. Please call the patient at [phone] to advise Best time of day caller can be reached: Anytime Patient advised that office/PCP has 24-48 business hours to return their call: Yes documented in this encounterSMercy [facility] Medical [id number] Progress note Author Ganesh Kiran [facility] Note Date/Time June 08, 2025 4:29 pm [facility] Medical Records Department [address] [place] [address] Progress Note - Hospitalist 06/08/25 1624 MR#: [id number] Acct: [id number] Name: MANSI CARO Rep #:[id number] 37 : 1955 70 From: Ganesh Amaya PCP: Marci Lopez DO Status:ADM I N Location: [place] [address] Objective Data Objective Data Vital Signs: Vital [...] Neut % (Auto) 61.1, Lymph % (Auto) 26.4,[place] % (Auto) 11.9 H, Eos % (Auto) [...] further said she had outside PFT in [place] by dry cell tester. 06/07: On levofloxacin. EGD 04/25/2025 Impression: - [...] of the bed: Discussed with the patient, telehealth case manager. Continue PT and OT Discharge plan: Patient [...] Glucose 101 Charges/Coding Visit Charges Inpatient E&M: 43405 Subs Hosp L2 06/08/251628 <Electronically signed by Ganesh Kiran MD> Cosigner Signature (if applicable): CC: ~ Signed [facility] Work Phone: 1(910) 811-289707-17-2025 Consult note Author Carlos Velázquez [facility] Note Date/Time June 11, 2025 3:38 pm [facility] Medical Records Department [address] [place] [address] Anesthesia Postop Eval II 06/07/251627 MR#: [id number] Acct: [id number] Name: MANSI CARO Rep #:[id number] 62 : 1955 70 From: Carlos Amaya PCP: Marci Lopez DO Status:ADM I N Y Race: C Location: [place] [address] Anesthesia Postop Eval I Sum Postop Eval [...] Pain Level: 1 nausea: No Vomiting: No 06/07/251627 <Electronically signed by Carlos Velázquez MD> Date _ Carlos Ortizignaudi Signature: Date CC: ~ Signed [facility] Work Phone: 1(899) 139-374507-17-2025 Progress note Author Ganesh Kiran [facility] Note Date/Time June 07, 2025 3:36 pm [facility] Medical Records Department [address] [place] [address] Progress Note - Hospitalist 06/07/25 1533 MR#: [id number] Acct: [id number] Name: MANSI CARO Rep #:[id number] 17 : 1955 70 From: Ganesh Amaya PCP: Marci Lopez DO Status:ADM I N Location: [place] [address] Objective Data Objective Data Vital Signs: Vital [...] further said she had outside PFT in [place] by dry cell tester. 06/07: On levofloxacin. EGD 04/25/2025 Impression: - [...] Glucose 101 Charges/Coding Visit Charges Inpatient E&M: 49716 Subs Hosp L2 06/07/25 1536 <Electronically signed by Ganesh Kiran MD> Cosigner Signature (if applicable): CC: ~ Signed [facility] Work Phone: 1(821) 814-555007-17-2025 Consult note Author José Miguel Heller [facility] Note Date/Time June 07, 2025 1:58 pm [facility] Medical Records Department [address] [place] [address] Anesthesia Postop Eval I 06/07/25 1357 MR#: [id number] Acct: [id number] Name: MANIS CARO Rep #:[id number] 07 : 1955 70 From: José Miguel Heller PCP: Marci Lopez DO Status:ADM I N Y Race: C Location: [place] [address] Anesthesia: Postop Eval I Current Vital Signs [...] document: Postop Eval 1 completed: Yes 06/07/25 1358 <Electronically signed by José Miguel Heller > Date _ José Miguel Gallo Signature: Date CC: ~ Signed [facility] Work Phone: [phone]) 167-744307-17-2025 Consult note Author [facility] Note Date/Time June 07, 2025 1:18 pm [facility] Medical Records Department [address] [place] [address] [place] [address] Pre-Anesthesia Evaluation 06/07/25 1310 MR#: [id number] Acct: [id number] Name: MANSI CARO Rep #:[id number] 58 : 1955 70 From: Carlos Amaya PCP: Marci Lopez DO Status:ADM I N Y Race: C Location: [place] [address] ASA Classification* ASA Classification ASA Classification: 3 [...] duodenal stent Anesthesia History 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 Hx Hospitalization Yes: IN TCU PRESENTLY 04/23/25 [...] take am of surgery PONV PONV - 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: PONV - 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 Female HX of Motion Sickness HX of N/V After Surgery Non-Smoker Duration of Surgery greater than 60 minutes Number of Risk Factors PONV Score Height & Weight Height & Weight: Anesthesia: Height & Weight Height 5 ft 8 in 06/07/25 10:08 Weight: 58.2 kg 06/07/25 10:08 Body Mass Index (BMI) 19.5 06/02/25 14:27 Respiratory Assessment Respiratory Assessment - 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: Respiratory Tract Infection Hx - 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 Hx Respiratory Tract Infection No 04/23/25 16:09 STOP Sleep Apnea STOP Sleep Apnea - 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: STOP Sleep Apnea - 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 Hx Hypertension No 06/06/25 16:07 Hx Sleep [...] Tobacco Use History Tobacco Use History - 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: Tobacco Use History - 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 Tobacco Use Cigarettes 11/13/24 13:46 Smoking Status Former smoker 06/02/25 14:27 Hx Tobacco Use No 06/02/25 14:27 Years Smoking Packs Smoked per Day Smoking Cessation Date was No - quit smoking greater 06/02/25 14:27 within the last 15 years than 15 years ago Hx Smoking Cessation Date 10/06/09 06/02/25 14:27 Hx Smoking Cessation No 06/02/25 14:27 Counseling Hematologic Medial History Hematologic Hx - 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: Hematologic Medical Hx - documentation spec Hx of Blood Transfusion Yes 06/02/25 14:27 [...] confused, unrespo /Reproduction History /Reproductive History - 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: /Reproductive Hx- 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 Hx Now Gestational Age (in weeks): EDC: Hx Hx Para Hx Section SAB No 04/23/25 16:09 Active Medications Active Medications: Current Medications Generic Name Dose Route Start Last Admin Trade Name Freq PRN Reason Stop Dose Admin Albuterol Sulfate 2.5 mg 06/02/25 14:27 Albuterol 2.5 Mg/3 Ml Vial.Neb. INHALATION Q2H PRN PRN SOB &/OR WHEEZING Albuterol/Ipratropium 3 ml 06/06/25 00:45 06/06/25 19:30 Ipratropium/Albuterol Sulfate 3 Ml Ampul.Neb INHALATION [...] Tablet PO Not Given DAILY@1200 [facility] Heparin Sodium (Porcine) 5,000 unit 06/02/25 22:00 06/07/25 10:47 Heparin Injection (Vial) 5,000 Unit/Ml Vial SC 5,000 unit Q12 VERONA Administration Hyoscyamine Sulfate 0.125 mg 06/02/25 14:54 06/05/25 09:51 Hyoscyamine Sulfate 0.125 Mg Tablet PO 0.125 mg TID PRN Administration dyspepsia Sodium Chloride 250 mls @ 15 mls/hr 06/02/25 15:17 IV .[id number] PRN Saline Flush Sodium Chloride 250 mls @ 15 mls/hr 06/02/25 15:17 IV .[id number] PRN Additional IVPB Infusion Sodium Chloride 250 mls @ 15 mls/hr 06/03/25 16:15 IV .[id number] PRN Saline Flush Sodium Chloride 250 mls @ 15 mls/hr 06/03/25 16:15 IV .[id number] PRN Additional IVPB Infusion Lactated Ringer's 1,000 mls @ 15 mls/hr 06/07/25 13:15 IV .Q48H VERONA Lamotrigine 100 mg 06/02/25 14:27 06/06/25 10:18 Lamotrigine 100 Mg Tablet PO 100 mg DAILY VERONA Administration Levofloxacin 500 mg 06/05/25 06:00 06/07/25 05:46 Levofloxacin 500 Mg Tablet PO 500 mg DAILY@0600 VERONA Administration Metformin HCl 500 mg 06/02/25 22:00 [...] 17 Gm Packet PO Not Given DAILY VERONA Trazodone HCl 50 mg 06/04/25 22:00 06/06/25 [...] (patent foramen ovale) Cardiac resynchronization therapy defibrillator (DRYWALL CONTRACTOR-D) in place Myocarditis Hyperlipidemia Hypertension Home Medications [...] 0.125 mg tablet 0.125 mg PO TID KS N dyspepsia #90 06/04/25 Unknown Rx tabs [...] no additional complaints, except as documented. 06/07/25 7246 <Electronically signed by Carlos Velázquez MD> Date _ Carlos Gallo Signature: Date CC: ~ Signed [facility] Work Phone: 1(166) 620-809507-17-2025 Consult note Author Shan Lockett [facility] Note Date/Time June 07, 2025 1:03 pm [facility] Medical Records Department [address] [place] [address] Consultation - GI 06/07/25 1300 MR#: [id number] Acct: [id number] Name: MANSI CARO Rep #:[id number] 39 : 1955 70 From: Shan Lockett DO PCP: Marci Lopez DO Status:ADM I N Location: [place] [address] HPI Consult Data Date of Consult: 06/07/25 HPI Narrative Reason for Consultation: Abdominal pain with nausea vomiting HPI Narrative: MANSI CARO, is a 70 F who presented to [facility] after her physician sent her in [...] 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 [facility] Medical History Pneumonia Dyspnea Back pain History [...] (patent foramen ovale) Cardiac resynchronization therapy defibrillator (DRYWALL CONTRACTOR-D) in place Myocarditis Hyperlipidemia Hypertension Home Medications [...] 0.125 mg tablet 0.125 mg PO TID KS N dyspepsia #90 06/04/25 Unknown Rx tabs [...] of 3. Charges/Coding Visit Charges Inpatient E&M: 48029 Init Hosp L3 06/07/25 1303 <Electronically signed by Shan Lockett DO> Cosigner Signature (if applicable): CC: Marci Lopez DO~ Signed [facility] Work Phone: 1(514) 718-895707-17-2025 Procedure [facility] 06-06-2025 Progress note Author Ganesh Kiran [facility] Note Date/Time June 06, 2025 4:53 pm [facility] Medical Records Department [address] [place] [address] Progress Note - Hospitalist 06/06/25 1339 MR#: [id number] Acct: [id number] Name: MANSI CARO Rep #:[id number] : 1955 70 From: Ganesh Amaya PCP: Marci Lopez DO Status:ADM I N Location: [place] [address] Objective Data Objective Data Vital Signs: Vital [...] further said she had outside PFT in [place] by dry cell tester. EGD 04/25/2025 Impression: - Normal esophagus. - [...] follow-up instructions. Charges/Coding Visit Charges Inpatient E&M: 32423 Subs Hosp L2 06/06/25 5875 <Electronically signed by Ganesh Kiran MD> Cosigner Signature (if applicable): CC: ~ Signed [facility] Work Phone: 1(290) 917-466507-16-2025 Discharge summary Author Ganesh Kiran [facility] Note Date/Time June 06, 2025 12:2 6pm [facility] Medical Records Department [address] [place] [address] Discharge Summary 06/06/25 1219 MR#: [id number] Acct: [id number] Name: MANSI CARO Rep #:[id number] 24 : 1955 70 From: Ganesh mAaya PCP: Marci Lopez DO Status:ADM I N Location: [place] [address]-1 Providers Date of Admission: 06/02/25 Date of Discharge: 06/06/25 Primary Care Physician: Dr. Marci Lopez DO Reason For Visit: PNEUMONIA, HYPOXIA Diagnosis [...] Provider: Ganesh Kiran Primary Care Provider: Marci Lopez Consulting Providers: Ben Johnson Discharge Orders/Prescriptions Prescriptions: [...] Marci Lopez DO [Primary Care Provider] - Lluvia Kilpatrick NP-C [Med Staff - [facility] Practice Prof] - Within 1 Month (For COPD evaluation) Disposition Disposition (needs filled in before D/C Order can be placed): Home, Self Care Charges/Coding Visit Charges Inpatient E&M: 83456 Disch Hosp >30min 06/06/25 1226 <Electronically signed by Ganesh Kiran MD> Cosigner Signature (if applicable): CC: Dr. Ganesh Kiran MD; Marci Lopez DO~ Signed [facility] Work Phone: 1(286) 875-708507-16-2025 Discharge summary Author Ganesh Kiran [facility] Note Date/Time June 06, 2025 12:1 9pm [facility] Medical Records Department [address] [place] [address] Instructions for Home/Discharge Instructions 06/06/25 0955 MR#: [id number] Acct: [id number] Name: MANSI CARO Rep #:[id number] 10 : 1955 70 From: Ganesh Amaya PCP: Marci Lopez DO Status:ADM I N Discharge Instructions DC [...] Provider: Ganesh Kiran Primary Care Provider: Marci Lopez Consulting Providers: Ben Johnson Discharge Orders/Prescriptions Prescriptions: [...] Marci Lopez DO [Primary Care Provider] - Lluvia Kilpatrick ROAD EQUIPMENT OPERATOR-C [Med Staff - [facility] Practice Prof] - Within 1 Month (For COPD evaluation) Disposition Disposition (needs filled in before D/C Order can be placed): Home, Self Care 06/06/25 1219<Electronically signed by Ganesh Kiran MD>Ganesh Kiran MD CC: Dr. Ben Johnson DO; Marci Lopez DO ~ Signed [facility] Work Phone: 1(339) 629-276407-16-2025 [facility]07-15-2025 Progress note Author Ben Johnson [facility] Note Date/Time June 05, 2025 3:12 pm [facility] Medical Records Department [address] [place] [address] Progress Note - Hospitalist 06/05/25 1509 MR#: [id number] Acct: [id number] Name: MANSI CARO Rep #:[id number] 23 : 1955 70 From: Ben Johnson DO PCP: Marci Lopez DO Status:ADM I N Location: [place] [address] Subjective Subjective Patient was seen and examined [...] 35 minutes Charges/Coding Visit Charges Inpatient E&M: 07539 Subs Hosp L2 06/05/25 1512 <Electronically signed by Ben Johnson DO> Cosigner Signature (if applicable): CC: ~ Signed [facility] Work Phone: 1(801) 768-608607-14-2025 Progress note Author Ben [facility] and clinicest[facility] Note Date/Time June 04, 2025 6:22 pm [facility] Medical Records Department [address] [place] [address] Progress Note - Hospitalist 06/04/25 1820 MR#: [id number] Acct: [id number] Name: MANSI CARO Rep #:[id number] 30 : 1955 70 From: Ben Johnson DO PCP: Marci Lopez DO Status:ADM I N Location: [address] Subjective Subjective Patient was seen and examined [...] % (Auto) 64.7, Lymph % (Auto) 25.1, [place] % (Auto) 8.2, Eos % (Auto) 1.3, [...] 35 minutes Charges/Coding Visit Charges Inpatient E&M: 47517 Subs Hosp L2 06/04/25 9401 <Electronically signed by Ben Tereletsky DO> Cosigner Signature (if applicable): CC: ~ Signed [facility] Work Phone: 1(316) 132-175607-13-2025 Progress note Author Ben Johnson [facility] Note Date/Time June 03, 2025 4:12 pm [facility] Medical Records Department [address] [place] [address] Progress Note - Hospitalist 06/03/25 1610 MR#: [id number] Acct: [id number] Name: MANSI CARO Rep #:[id number] : 1955 70 From: Ben Johnson DO PCP: Marci Lopez DO Status:ADM I N Location: [place] [address] Subjective Subjective Patient's white blood cell count [...] % (Auto) 66.4, Lymph % (Auto) 19.2, [place] % (Auto) 12.4 H, Eos % (Auto) [...] 35 minutes Charges/Coding Visit Charges Inpatient E&M: 44066 Subs Hosp L2 06/03/25 1612 <Electronically signed by Ben Johnson DO> Cosigner Signature (if applicable): CC: ~ Signed [facility] Work Phone: 1(748) 332-197507-12-2025 Discharge summary Author Bossman Sanders [facility] Note Date/Time June 02, 2025 9:07 pm [facility] Medical Records Department [address] [place] [address] Emergency Department Summary 06/02/25 MR#: [id number] Acct: [id number] Name: MANSI CARO Rep #:[id number] 17 : 1955 70 From: Bossman Sanders DO PCP: Marci Lopez DO Status:ADM I N Location: [place] [address] HPI History of Present Illness Chief Complaint: [...] of ischemic colitis. She sees Dr. Lockett buttonhole tacker. Patient with prior history ofstroke and has history of a pacer defibrillator. Currently on aspirin and used to be on Plavix but states she is not currently taking that. Patient also states she has had a hard time swallowing and nothing tastes good. Intermittent nausea and vomiting PFSH [facility] Medical History Back pain History of Holter [...] (patent foramen ovale) Cardiac resynchronization therapy defibrillator (DRYWALL CONTRACTOR-D) in place Myocarditis Hyperlipidemia Hypertension Home Medications [...] 0.125 mg tablet 0.125 mg PO TID KS N dyspepsia #90 03/05/25 06/02/25 Rx tabs [...] normal at 1.3. LFTs were normal. BT ROAD EQUIPMENT OPERATOR was elevated 948. Lipase was normal. CTA [...] No change since prior examination. Reading Location: [facility] EKG Initial EKG: Attestation: I personally reviewed and [...] Lopez, [Primary Care Provider] - Print Language: Tristanian Disposition Disposition: Acute Care Hospital [facility] What to do if you have Problems For any increased pain, shortness of breath, bleeding, nausea or vomiting, chestpain, or any unexpected problems, contact your Primary Care Provider. Call [facility] ([phone]) or report to the closest Emergency Room. Call 911 if necessary. 06/02/252106 <Electronically signed by Bossman Sanders DO> Cosigner Signature (if applicable): CC: Marci Lopez DO ~ Signed [facility] Work Phone: 1(532) 692-496707-12-2025 History and physical note Author Ben [facility] Note Date/Time June 02, 2025 6:33 pm [facility] Medical Records Department [address] [place] [address] H&P Exam - Hospitalist 06/02/25 1801 MR#: [id number] Acct: [id number] Name: MANSI CARO Rep #:[id number] 01 : 1955 70 From: Ben Johnson DO PCP: Marci Lopez DO Status:ADM I N Location: [facility] [id number] HPI - General General Date of Admission: 06/02/25 Date of Service: 06/02/25 HPI Narrative MANSI CARO, is a 70 F who presents to the emergency room at [facility] after her physician sent her in [...] also has a history of cerebral palsy. [facility] Medical History Back pain History of Holter [...] (patent foramen ovale) Cardiac resynchronization therapy defibrillator (DRYWALL CONTRACTOR-D) in place Myocarditis Hyperlipidemia Hypertension Home Medications [...] 0.125 mg tablet 0.125 mg PO TID KS N dyspepsia #90 03/05/25 06/02/25 Rx tabs [...] No change since prior examination. Reading Location: [facility] Assessment & Plan Assessment/Plan (1) Dyspnea: PLAN: [...] 75 minutes Charges/Coding Visit Charges Inpatient E&M: 34704 Init Hosp L3 06/02/25 0683 <Electronically signed by Ben Johnson DO> Cosigner Signature (if applicable): CC: Dr. Ben Johnson DO; Marci Lopez DO~ Signed [facility] Work Phone: 1(913) 944-467207-12-2025 Telephone encounter Note* Telephone Encounter - Donna Vail RN - 06/02/2025 3:16 PM EDT S: Song called the clinical access center B: He called to report Mansi was admitted to the hospital today A: He wanted to thank Dr. Lopez for her advice. R: She is admitted at [facility]. Patient instructed to call back with worsening symptoms, concerns or questions. [id number] Miscellaneous Notes* Telephone Encounter - Donna Vail RN - 06/02/2025 3:16 PM EDT S: Song called the clinical access center B: He called to report Mansi was admitted to the hospital today A: He wanted to thank Dr. Lopez for her advice. R: She is admitted at [facility]. Patient instructed to call back with worsening symptoms, concerns or questions. documented in this encounterSMer[facility] [id number] Radiology Diagnostic study [facility]07-12-2025 Telephone encounter Note* Telephone Encounter - Paige HZeke Vick - 06/02/2025 10:28 AM EDT Name of caller requesting page: Song Phone Number of caller: [phone] Facility requesting page: The patient Spouse Reason for Page: The patient states he is taking the patient to [facility] right now [er Dr. Lopez orders. The patient O2 level this morning was 83 and her temperature is 99.1. Provider paged: Antonio Clay MD Practice Name of paged provider: [facility] Page Placed to #: Secure chat Time Page was sent or provider contacted: 10:35 am Page Content: PAGE: The patient Song, ; PTZeke Caro; The patient states he is taking the patient to [facility] right now per Dr. Lopez orders. The patient O2 level this morning was 83 and her temperature is 99.1. Please call the patient to advise. [id number] Miscellaneous Notes* Telephone Encounter - Paige Vick - 06/02/2025 10:28 AM EDT Name of caller requesting page: Song Phone Number of caller: [phone] Facility requesting page: The patient Spouse Reason for Page: The patient states he is taking the patient to [facility] right now [er Dr. Lopez orders. The patient O2 level this morning was 83 and her temperature is 99.1. Provider paged: Antonio Clay MD Practice Name of paged provider: [facility] Page Placed to #: Secure chat Time Page was sent or provider contacted: 10:35 am Page Content: PAGE: The patient Song, ; PTZeke Caro; The patient states he is taking the patient to [facility] right now per Dr. Lopez orders. The patient O2 level this morning was 83 and her temperature is 99.1. Please call the patient to advise. documented in this encounterSMercy [facility] Medical [id number] Radiology Diagnostic study [facility]07-01-2025 Discharge summary Author Fazal Heller [facility] Note Date/Time May 22, 2025 8:43p m [facility] Medical Records Department [address] [place] [address] Emergency Department Summary 05/22/25 MR#: [id number] Acct: [id number] Name: MANSI CARO Rep #:[id number] : [...] been having GI bleed in the past. [facility] Medical History Back pain History [...] (patent foramen ovale) Cardiac resynchronization therapy defibrillator (DRYWALL CONTRACTOR-D) in place Myocarditis Hyperlipidemia Hypertension Home Medications [...] 0.125 mg tablet 0.125 mg PO TID KS N dyspepsia #90 03/05/25 Unknown Rx tabs [...] following commands knew that she was at [facility] years 2024 Skin: Warm, dry, intact no [...] Lymph % (Auto) 16.2 L 17.5 L [place] % (Auto) 10.4 H 12.5 H Eos [...] Sl. Cloudy Urine pH 7.0 Ur Specific [place] 1.005 Urine Protein 30 H Urine Glucose [...] Colonic diverticulosis. Atherosclerosis as above. Reading Location: [place] [address] Discharge Plan Triage Chief Complaint: Abd Pain [...] urine culture with your doctor. Print Language: Tristanian Disposition Disposition: Home, Self Care What to do if you have Problems For any increased pain, shortness of breath, bleeding, nausea or vomiting, chestpain, or any unexpected problems, contact your Primary Care Provider. Call [facility] ([phone]) or report to the closest Emergency Room. Call 911 if necessary. 05/22/252042 <Electronically signed by Fazal Heller DO> Cosigner Signature (if applicable): CC: Marci Lopez DO ~ Signed [facility] Work Phone: 1(160) 188-114206-30-2025 NoteHNO ID: [id number] Author: DONOVAN LOUISE RPh Service: ? Author [...] been reviewed prior to dispensing the medication. Computer Forensic Specialist Assessment Patient confirmed: Yes Med/dose confirmed: Yes Missed doses: No Estimated days supply on hand: 7 Next cycle/dose due: 05/23/25 Copay amount: 0 Delivery method: FedEx Signature required: Waived on patient request Delivery address: [address] [address] Delivery date: 05/24/25 Questions or concerns for [...] facility-administered medications on file prior to visit. [facility] [place] CLINICAL ASSESSMENT - NEUROLOGY V7: [...] and monitor patients closely (more content not included)...[facility]06-09-2025 Discharge summary Author Alonso Marte [facility] Note Date/Time April 30, 2025 7:13p [facility] Medical Records Department [address] [place] [address] Discharge Summary 04/30/25 1901 MR#: [id number] Acct: [id number] Name: MANSI CARO Rep #:[id number] : 1955 70 From: Alonso Marte MD PCP: Marci Lopez DO Status:ADM I N Location: [place] [address] Providers Date of Admission: 04/20/25 Primary Care [...] GRD contraindicated. 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 The following psychotropic medication was present [...] GRD contraindicated. 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 The following psychotropic medication was present [...] GRD contraindicated. 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 Medications at Discharge Home Medications clonazepam [...] ileum was normal. Discharge home with 05/03/2025, [facility] PT. Physical Exam Const alert General [...] % (Auto) 55.4, Lymph % (Auto) 28.3, [place] % (Auto) 10.9 H, Eos % (Auto) [...] Alonso Marte MD; Marci Lopez DO~ Signed [facility] Work Phone: 1(392) 458-772006-09-2025 Discharge summary [facility] Medical Records Department [address] [place] [address] Discharge Summary 04/30/25 190 MR#: [id number] Acct: [id number] Name: MANIS CARO Rep #:[id number] : 1955 70 From: Alonso Marte MD PCP: Marci Lopez DO Status:ADM I N Location: [place] [address] Providers Date of Admission: 04/20/25 Primary Care [...] ___x_ GRD contraindicated. Reason contraindicated: stable chronic longterm use. The following psychotropic medication was present [...] GRD contraindicated. 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 The following psychotropic medication was present [...] __x__ GRD contraindicated. Reason contraindicated: stable chronic longterm use. Medications at Discharge Home Medications clonazepam [...] ileum was normal. Discharge home with 05/03/2025, [facility] PT. Physical Exam Const alert General [...] Neut% (Auto) 55.4, Lymph % (Auto) 28.3, [place] % (Auto) 10.9 H, Eos % (Auto) [...] Alonso Marte MD; Marci Lopez DO~ Signed [facility]06-09-2025 [facility]06-04-2025 Consult note Author Melanie Muñoz [facility] Note Date/Time April 25, 2025 8:26a m [facility] Medical Records Department [address] [place] [address] Anesthesia Postop Eval II 04/25/25822 MR#: [id number] Acct: [id number] Name: MANSI CARO Rep #:[id number] : 1955 70 From: Melanie Muñoz CRNA PCP: Marci Lopez DO Status:REG S DC Y Race: C Location: [place] [address] Anesthesia Postop Eval I Sum Postop Eval [...] Pain Level: 0 nausea: No Vomiting: No 04/25/25822 <Electronically signed by Melanie garrido CRNA> Date _ Melanie Ortizignuadi Signature: Date CC: ~ Signed [facility] Work Phone: 1(140) 126-310706-04-2025 Consult note Author José [facility] Date/Time April 25, 2025 7:57a m [facility] Medical Records Department [address] [place] [address] Anesthesia Postop Eval I 04/25/25755 MR#: [id number] Acct: [id number] Name: MANSI CARO Rep #:[id number] : 1955 70 From: José Miguel Heller PCP: Marci Lopez DO Status:REG S DC Y Race: C Location: [address] Anesthesia: Postop Eval I Current Vital Signs [...] Miguel Heller > Date _ José Miguel Gallo Signature: Date CC: ~ Signed [facility] Work Phone: 1(191) 650-633306-04-2025 Consult note Author Palmer Gallo [facility] Note Date/Time April 25, 2025 7:06a m [facility] Medical Records Department [address] [place] [address] Pre-Anesthesia Evaluation 04/25/25 0701 MR#: [id number] Acct: [id number] Name: MANSI CARO Rep #:[id number] : 1955 70 From: Palmer Gallo MD PCP: Marci Lopez DO Status:REG S DC Y Race: C Location: AC AC05-1 ASA Classification* ASA Classification ASA Classification: 4 [...] Procedure(s): COLONOSCOPY/EGD Anesthesia History 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 Hx Hospitalization Yes: IN TCU PRESENTLY 04/23/25 [...] take am of surgery PONV PONV - 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: 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 - 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 Female Yes 04/23/25 16:09 HX of Motion [...] 04/25/25 06:48 Respiratory Assessment Respiratory Assessment - 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: Respiratory Tract Infection Hx - 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 Hx Respiratory Tract Infection No 04/23/25 16:09 STOP Sleep Apnea STOP Sleep Apnea - 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: STOP Sleep Apnea - 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 Hx Hypertension Yes: CONTROLLED ON MED 04/23/25 [...] Tobacco Use History Tobacco Use History - 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: Tobacco Use History - 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 Tobacco Use Cigarettes 11/13/24 13:46 Smoking Status Former smoker 04/23/25 16:09 Hx Tobacco Use No 04/23/25 16:09 Years Smoking Packs Smoked per Day Smoking Cessation Date was Yes - quit smoking within 15 04/23/25 16:09 within the last 15 years years Hx Smoking Cessation Date 10/06/09 04/23/25 16:09 Hx Smoking Cessation No 04/23/25 16:09 Counseling Hematologic Medial History Hematologic Hx - 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: Hematologic Medical Hx - documentation spec Hx of Blood Transfusion No 04/23/25 16:09 [...] confused, unrespo /Reproduction History /Reproductive History - 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: /Reproductive Hx- 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 Hx Now No 04/23/25 16:09 Gestational Age [...] (patent foramen ovale) Cardiac resynchronization therapy defibrillator (DRYWALL CONTRACTOR-D) in place Myocarditis Hyperlipidemia Hypertension Home Medications [...] 0.125 mg tablet 0.125 mg PO TID KS N dyspepsia #90 03/05/25 Unknown Rx tabs [...] MD Cosigner Signature: Date CC: ~ Signed [facility] Work Phone: 1(844) 576-796906-04-2025 History and physical note Author Shan Lockett [facility] Note Date/Time April 25, 2025 6:47a m [facility] Medical Records Department [address] [place] [address] History & Physical Exam 04/25/2545 MR#: [id number] Acct: [id number] Name: MANSI CARO Rep #:[id number] : 1955 70 From: Shan Lockett DO PCP: Marci Lopez DO Status:REG S DC Location: [place] [address] HPI - General General Date of Admission: 04/25/25 Date of Service: 04/25/25 Chief Complaint: Anemia and abdominal pain HPI Narrative MANSI CARO, is a 70 F who presents for endoscopic evaluation I established 8.30.34 after hospitalization for bloody diarrhea [...] care. Start Linzess 72 mcg daily. OV 3..25; Pt recommended to f/u with GI for FOBT+. 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 She endorses some lower abd pain today. SHe is having a bm every two days while on Linzess 72 mcg and miralax. [facility] Medical History Back pain History of Holter [...] (patent foramen ovale) Cardiac resynchronization therapy defibrillator (DRYWALL CONTRACTOR-D) in place Myocarditis Hyperlipidemia Hypertension Home Medications [...] 0.25 % eye 1 drp ophthalmic (santiago pierre) .q1hr PRN 01/23/25 Unknown History gel drops (Blink Gel Tears) Dry eyes ferrous sulfate 325 mg (65 mg 325 mg PO QDAY Supplemen t 02/13/25 04/20/25 08:30 History iron) tablet (Feosol) linaclotide 145 mcg capsule 145 mcg PO QAM Constipatio n #60 02/14/25 Unknown Rx (Linzess) caps hyoscyamine sulfate 0.125 mg tablet 0.125 mg PO TID KS N dyspepsia #90 03/05/25 Unknown Rx tabs [...] Marci Lopez DO; Shan Lockett DO~ Signed [facility] Work Phone: 1(383) 296-897606-04-2025 Procedure [facility] 04-25-2025 Procedure [facility]06-04-2025 Procedure note [facility]06-04-2025 Procedure [facility] 04-25-2025 [facility]06-02-2025 History of Present illness Narrative* Deisi Post [...] been reviewed prior to dispensing the medication. Computer Forensic Specialist Assessment Patient confirmed: Yes Med/dose confirmed: Yes Supplies needed: No supplies needed Missed doses: No Estimated days supply on hand: 10 Next cycle/dose due: 04/24/25 Copay amount: 0 Payment confirmed: Yes Delivery method: FedEx Signature required: No Delivery address: [address] [place] [address] Delivery date: 04/26/25 Questions or concerns for [...] facility-administered medications on file prior to visit. [facility] [place] CLINICAL ASSESSMENT - NEUROLOGY V7: [...] monitor patients closely for evidence of excessive CEPHALOMETRIC TECHNICIAN depression (ie, respiratory depression, hypotension, sedation, or coma). Vaccines Est. Tx Plan Start Date: No information available Estimated Start Date Info: No information available Est. Estimated Treatment Duration: No information available Deisi Post CPhT [facility] Infl[facility] P: [phone] F: [phone] [facility] NoteHNO ID: [id number] Author: WESLEY HAYES [facility] Service: ? Author Type: ? Type: Progress [...] Hayes, PharmD, BCPS, CSP, MSCS Clinical Pharmacist [facility] P: ; F: Pool: P [facility] Computer Forensic Specialist Assessment Patient confirmed: Yes Med/dose confirmed: Yes Supplies needed: No supplies needed Missed doses: No Estimated days supply on hand: 10 Next cycle/dose due: 04/24/25 Copay amount: 0 Payment confirmed: Yes Delivery method: FedEx Signature required: No Delivery address: [address] [place] [address] Delivery date: 04/26/25 Questions or concerns for [...] facility-administered medications on file prior to visit. [facility] [place] CLINICAL ASSESSMENT - NEUROLOGY V7: [...] treatment options are inadequa (more content not included)...[facility] 04-21-2025 Progress note Author Talat Cameron [facility] Note Date/Time April 21, 2025 6:13p m [facility] Medical Records Department [address] [place] [address] Progress Note - Pharmacy 04/21/25 1122 MR#: [id number] Acct: [id number] Name: MANSI CARO Rep #:[id number] : 1955 70 From: Talat Cameron PCP: Marci Lopez DO Status:ADM I N Location: TCU [facility]- Documented by User: Talat Cameron 04/21/25 [...] gain Protocol Glycerin/Hypromellose/Polyethylene 1 drp 04/20/25 18:04 Glycerin/Hypromellose/Qjd131 15 Ml Bottle EACH EYE Q1H PRN [...] daily. This is a stable chronic termite technician medication, GDR not recommended. Monitor for efficacy [...] Talat Cameron Cosigner Signature (if applicable): 04/21/25 181 <Electronically signed by Alonso Marte MD> CC: ~ Signed [facility] Work Phone: 1(498) 284-471605-31-2025 Progress note [facility] Medical Records Department [address] [place] [address] Progress Note - Pharmacy 04/21/25 1122 MR#: [id number] Acct: [id number] Name: MANSI CARO Rep #:[id number] : 1955 70 From: Talat Cameron PCP: Marci Lopez DO Status:ADM I N [facility] Documented by User: Talat Cameron 04/21/25 12:12 [...] Clopidogrel Bisulfate 75 Mg Tablet PO MoWeFr [facility] Escitalopram Oxalate 5 mg 04/21/25 10:00 04/21/25 09:02 Escitalopram Oxalate 10 Mg Tablet PO 5 mg DAILY VERONA Administration Ferrous Sulfate 325 mg 04/21/25 12:00 Ferrous Sulfate 325 Mg Tablet PO DAILY@1200 [facility] Furosemide 20 mg 04/20/25 16:41 Furosemide 20 Mg Tablet PO DAILY PRN PRN for 2lb weight gain Protocol Glycerin/Hypromellose/Polyethylene 1 drp 04/20/25 18:04 Glycerin/Hypromellose/Zrk842 15 Ml Bottle EACH EYE Q1H PRN PRN Dry eyes Hyoscyamine Sulfate 0.125 mg 04/20/25 18:01 Hyoscyamine Sulfate 0.125 Mg Tablet PO TID PRN dyspepsia Lamotrigine 100 mg 04/21/25 10:00 04/21/25 09:02 Lamotrigine 100 Mg Tablet PO 100 mg DAILY VERONA Administration Metformin HCl 500 mg 04/21/25 08:00 04/21/25 09:00 Metformin Hcl 500 Mg Tablet PO 500 mg DAILYCM [facility] Administration Metoprolol Succinate 25 mg 04/21/25 10:00 04/21/25 09:03 Metoprolol(Xl)Succ 25 Mg Tablet PO 25 mg DAILY VERONA Administration Protocol Non-Formulary Medication 145 mcg 04/21/25 10:00 Linaclotide [Linzess] PO QAM [facility] Oxycodone HCl 5 mg 04/20/25 18:07 Oxycodone 5 Mg Tablet PO Q6H PRN PRN Pain Score 6-10 Pantoprazole Sodium 40 mg 04/21/25 10:00 04/21/25 09:03 Pantoprazole Sodium 40 Mg Tablet PO 40 mg DAILY [facility] Administration Phenazopyridine HCl 95 mg 04/20/25 18:03 Phenazopyridine 95 Mg Tablet PO TID PRN PRN bladder pain Polyethylene Glycol 17 gm 04/21/25 10:00 04/21/25 09:02 Polyethylene Glycol 3350 17 Gm Packet PO 17 gm DAILY [facility] Administration Sodium Chloride 10 - [...] PO daily. This is a stable chronic longterm medication, GDR not recommended. Monitor for efficacy [...] (if applicable): 04/21/25 1813 CC: ~ Signed [facility]05-30-2025 History and physical note Author Alonso Estuardo [facility] Note Date/Time April 20, 2025 4:53p m [facility] Medical Records Department [address] [place] [address] History & Physical Exam 04/20/25 1624 MR#: [id number] Acct: [id number] Name: MANSI CARO Rep #:[id number] : 1955 70 From: Alonso Marte MD PCP: Marci Lopez DO Status:ADM I N Location: [facility]- HPI - General General Date of Admission: 04/20/25 Date of Service: 04/20/25 Chief Complaint: Here for rehabilitation. HPI Narrative MANSI CARO, is a 70 Female who presents with followin04/19/2025 [facility] ED weakness. Walks with walker at baseline. Not eating, not drinking for weeks. Too weak to get OOB. Patient concerned with urinary tract infection. Bloodwork okay, urinalysis okay. Normal saline 1 liter IV fluid bolus given. unable to care for her at home. PT/OT for placement. 04/19/2025 Admit [facility]. PT/OT/CM for SNF placement. No reversible etiology for weakness found. 04/20/2025 Resident vomited twice, vomitus appeared to be food, antiemetics givenwhich made her loopy. 04/20/2025 Admit to TCU with debility, here for rehabilitation, strengthening, prior to discharge home with . 04/25/2025 Dr. Lockett planning EGD/colonoscopy for anemia, +hemoccult, ischemic colitis. Dr. Garcia planning cystoscopy in office, date unknown. [facility] Medical History (Updated 04/20/25 @ 16:34 by [...] (patent foramen ovale) Cardiac resynchronization therapy defibrillator (DRYWALL CONTRACTOR-D) in place Myocarditis Hyperlipidemia Hypertension Home Medications [...] 0.125 mg tablet 0.125 mg PO TID KS N dyspepsia #90 03/05/25 Unknown Rx tabs [...] GRD contraindicated. 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 The following psychotropic medication was present [...] __x__ GRD contraindicated. Reason contraindicated: stable chronic longterm use. The following psychotropic medication was present [...] GRD contraindicated. 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 04/20/25 1653 <Electronically signed by Alonso Marte MD> Cosigner Signature (if applicable): CC: Dr. Alonso Marte MD; Marci Lopez DO~ Signed [facility] Work Phone: 1(310) 416-684605-30-2025 History and physical note [facility] Medical Records Department [address] [place] [address] History & Physical Exam 04/20/25 1624 MR#: [id number] Acct: [id number] Name: MANSI CARO Rep #:[id number] : 1955 70 From: Alonso Marte MD PCP: Marci Lopez DO Status:ADM I N Location: TCU [place] [address] HPI - General General Date of Admission: 04/20/25 Date of Service: 04/20/25 Chief Complaint: Here for rehabilitation. HPI Narrative MANSI CARO, is a 70 Female who presents with followin04/19/2025 [facility] ED weakness. Walks with walker at baseline. Not eating, not drinking for weeks. Too weak to get OOB. Patient concerned with urinary tract infection. Bloodwork okay, urinalysis okay. Normal saline 1 liter IV fluid bolus given. unable to care for her at home. PT/OT for placement. 04/19/2025 Admit [facility]. PT/OT/CM for SNF placement. No reversible etiology for weakness found. 04/20/2025 Resident vomited twice, vomitus appeared to be food, antiemetics givenwhich made her loopy. 04/20/2025 Admit to TCU with debility, here for rehabilitation, strengthening, prior to discharge home with . 04/25/2025 Dr. Lockett planning EGD/colonoscopy for anemia, +hemoccult, ischemic colitis. Dr. Garcia planning cystoscopy in office, date unknown. [facility] Medical History (Updated 04/20/25 @ 16:34 by [...] (patent foramen ovale) Cardiac resynchronization therapy defibrillator (DRYWALL CONTRACTOR-D) in place Myocarditis Hyperlipidemia Hypertension Home Medications [...] 0.25 % eye 1 drp ophthalmic (santiago pierre) .q1hr PRN 01/23/25 Unknown History gel drops (Blink Gel Tears) Dry eyes ferrous sulfate 325 mg (65 mg 325 mg PO QDAY Supplemen t 02/13/25 04/20/25 08:30 History iron) tablet (Feosol) linaclotide 145 mcg capsule 145 mcg PO QAM Constipatio n #60 02/14/25 Unknown Rx (Linzess) caps hyoscyamine sulfate 0.125 mg tablet 0.125 mg PO TID KS N dyspepsia #90 03/05/25 Unknown Rx tabs [...] GRD contraindicated. 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 The following psychotropic medication was present [...] GRD contraindicated. 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 The following psychotropic medication was present [...] __x__ GRD contraindicated. Reason contraindicated: stable chronic longterm use. 04/20/25 4725 [facility] Signature (if applicable): CC: Dr. Alonso Marte MD; Marci Lopez DO~ Signed [facility]05-30-20[facility] Discharge summary [facility] Medical Records Department [address] [place] [address] Discharge Summary 04/20/25 1449 MR#: [id number] Acct: [id number] Name: MANSI CARO Rep #:[id number] : 1955 70 From: Maximo levin DO PCP: Marci Lopez DO Status:ADM I NO Location: [place] [address] Providers Date of Admission: 04/19/25 Date of [...] is a 70-year-old female who presented to [facility] ED on 04/19/2025 with worsening weakness. [...] in before D/C Order can be placed): [facility] Facility Charges/Coding Visit Charges Inpatient E&M: 13641 Disch Hosp >30min 04/20/25 145 Cosigner Signature (if applicable): CC: Dr. Maximo Orosco DO; Marci Lopez DO~ Signed [facility]05-30-2025 Discharge summary [facility] Medical Records Department [address] [place] [address] Transfer to [facility] MR#: [id number] Acct: [id number] Name: MANSI CARO Rep #:[id number] : 1955 70 From: Maximo levin DO PCP: Marci Lopez DO Status:ADM I NO Certification of patient admission REQUIRED AT TIME OF ADMISSION. I CERTIFY THAT POST-HOSPITAL ECF SERVICES ARE REQUIRED TO BE GIVEN ON AN IN-PATIENT BASIS BECAUSE OF THE ABOVE NAMED PATIENT'S NEED FOR RESIDENTIAL CARE ON A CONTINUING BASIS FOR THE CONDITION(S) FOR WHICH HE/SHE WAS RECEIVING IN-PATIENT HOSPITAL SERVICES PRIOR TO HIS/HER TRANSFER TO THE F. 04/20/251453 Diet Diet Order/Speech Therapy: INPATIENT Hospital Diet [...] is a 70-year-old female who presented to [facility] ED on 04/19/2025 with worsening weakness. [...] in before D/C Order can be placed): [facility] Facility 04/20/25 8096 Cosigner Signature (if applicable): CC: Marci Lopez DO ~ [facility]05-30-2025 [facility]05-29-2025 History and physical note Author Maximo Orosco [facility] Note Date/Time April 19, 2025 2:36p m [facility] Medical Records Department [address] [place] [address] H&P Exam - Hospitalist 04/19/25 1124 MR#: [id number] Acct: [id number] Name: MANSI CARO Rep #:[id number] : 1955 70 From: Maximo levin DO PCP: Marci Lopez DO Status:ADM I NO Location: [facility] ON[facility]-7 HPI - General General Date of Admission: 04/19/25 Date of Service: 04/19/25 Chief Complaint: Worsening weakness HPI Narrative MANSI CARO, is a 70 F who presented to [facility] ED on 04/19/2025 with worsening weakness. [...] No other concerns at thistime. [facility] Medical History Ischemic colitis History of left [...] (patent foramen ovale) Cardiac resynchronization therapy defibrillator (DRYWALL CONTRACTOR-D) in place Myocarditis Hyperlipidemia Hypertension Home Medications [...] 0.125 mg tablet 0.125 mg PO TID KS N dyspepsia #90 03/05/25 Unknown Rx tabs [...] (Auto) 78.3 H, Lymph % (Auto) 10.4 L,[place] % (Auto) 8.2, Eos % (Auto) 2.5, [...] Clarity Clear, Urine pH 6.5, Ur Specific [place] 1.010, Urine Protein 15 H, Urine Glucose [...] is a 70-year-old female who presented to [facility] ED on 04/19/2025 with worsening weakness. 1. Acute on chronic debility ? Admit under observation status to [facility]. PT/OT/case management consulted. Patient with chronic [...] 55 minutes. Charges/Coding Visit Charges Inpatient E&M: 82333 Init Hosp L2 04/19/25 1436 <Electronically signed by Maximo Orosco DO> Cosigner Signature (if applicable): CC: Dr. Maximo Orosco DO; Marci Lopez DO~ Signed [facility] Work Phone: 1(770) 931-690705-29-2025 History and physical note [facility] Medical Records Department [address] [place] [address] [place] [address] H&P Exam - Hospitalist 04/19/25 1124 MR#: [id number] Acct: [id number] Name: MANSI CARO Rep #:[id number] : 1955 70 From: Maximo levin DO PCP: Marci Lopez DO Status:ADM I NO Location: [facility] VR465-3 HPI - General General Date of Admission: 04/19/25 Date of Service: 04/19/25 Chief Complaint: Worsening weakness HPI Narrative MANSI CARO, is a 70 F who presented to [facility] ED on 04/19/2025 with worseningweakness. Patient [...] No other concerns at thistime. [facility] Medical History Ischemic colitis History of left [...] (patent foramen ovale) Cardiac resynchronization therapy defibrillator (DRYWALL CONTRACTOR-D) in place Myocarditis Hyperlipidemia Hypertension Home Medications [...] 0.125 mg tablet 0.125 mg PO TID [place] N dyspepsia #90 03/05/25 Unknown Rx tabs [...] (Auto) 78.3 H, Lymph % (Auto) 10.4 L,Prince [place] % (Auto) 8.2, Eos % (Auto) 2.5, [...] Clarity Clear, Urine pH 6.5, Ur Specific [place] 1.010, Urine Protein 15 H, Urine Glucose [...] is a 70-year-old female who presented to [facility] ED on 04/19/2025 with worsening weakness. 1. Acute on chronic debility ? Admit under observation status to [facility]. PT/OT/case management consulted. Patient with chronic [...] 55 minutes. Charges/Coding Visit Charges Inpatient E&M: 16424 Init Hosp L2 04/19/25 1436 Cosigner Signature (if applicable): CC: Dr. Maximo Orosco DO; Marci Lopez DO~ Signed [facility]05-29-2025 Discharge summary Author Romeo Padron [facility] Note Date/Time April 19, 2025 11:06 am [facility] Medical Records Department [address] [place] [address] Emergency Department Summary 04/19/25 MR#: [id number] Acct: [id number] Name: MANSI CARO Rep #:[id number] 18 : 1955 70 From: Romeo Padron DO PCP: Marci Lopez DO Status:REG E R Location: ED ADDENDUM by Dr. Bossman Sanders DO on 04/19/25 at 1106 Patient care turned over to me awaiting evaluation by elementary school social worker for placement to half-way facility. Patient was evaluated by elementary school social worker and it was recommended that patient be admitted for precertification and admission to half-way facility. Will discuss case with hospitalist to [...] infection she was brought in for evaluation [facility] Medical History Ischemic colitis History [...] (patent foramen ovale) Cardiac resynchronization therapy defibrillator (DRYWALL CONTRACTOR-D) in place Myocarditis Hyperlipidemia Hypertension Home Medications [...] 0.125 mg tablet 0.125 mg PO TID KS N dyspepsia #90 03/05/25 Unknown Rx tabs [...] Yes additional social history: - Song [facility] ED Constitutional Constitutional ED: Denies [...] 78.3 H Lymph % (Auto) 10.4 L [place] % (Auto) 8.2 Eos % (Auto) 2.5 [...] Clarity Clear Urine pH 6.5 Ur Specific Moline 1.010 Urine Protein 15 H Urine Glucose (UA) 100 H Urine Ketones Negative Urine Occult Blood Negative Urine Nitrite Negative Urine Bilirubin Negative Urine Urobilinogen Normal Ur Leukocyte Esterase Negative Urine RBC 0 SEEN Urine WBC 0 SEEN Ur Squamous Epith Cells 0 SEEN Urine Bacteria 0 SEEN Urine Mucus 0 SEEN Management Discussion w/another healthcare provider: Hospitalist and production line worker/Case management Discharge Plan Triage Chief Complaint: [...] DO [Primary Care Provider] - Print Language: Tristanian What to do if you have Problems For any increased pain, shortness of breath, bleeding, nausea or vomiting, chestpain, or any unexpected problems, contact your Primary Care Provider. Call [facility] ([phone]) or report to the closest Emergency Room. Call 911 if necessary. 04/19/25 0633 <Electronically signed by Romeo Padron DO> Cosigner Signature (if applicable): CC: Marci Lopez DO ~ Signed [facility] Work Phone: 1(624) 917-958305-29-2025 Discharge summary [facility] Medical Records Department [address] [place] [address] Emergency Department Summary 04/19/25 MR#: [id number] Acct: [id number] Name: MANSI CARO Rep #:[id number] 18 : 1955 70 From: Romeo Padron DO PCP: Marci Lopez DO Status:REG E R Location: ED ADDENDUM by Dr. Bossman Sanders DO on 04/19/25 at 1106 Patient care turned over to me awaiting evaluation by elementary school social worker for placement to half-way facility. Patient was evaluated by elementary school social worker and it was recommended that patient be admitted for precertification and admission to half-way facility. Will discuss case with hospitalist to [...] infection she was brought in for evaluation [facility] Medical History Ischemic colitis History [...] (patent foramen ovale) Cardiac resynchronization therapy defibrillator (DRYWALL CONTRACTOR-D) in place Myocarditis Hyperlipidemia Hypertension Home Medications [...] 0.125 mg tablet 0.125 mg PO TID KS N dyspepsia #90 03/05/25 Unknown Rx tabs [...] Yes additional social history: - Song [facility] ED Constitutional Constitutional ED: Denies chills or [...] 78.3 H Lymph % (Auto) 10.4 L [place] % (Auto) 8.2 Eos % (Auto) 2.5 [...] Clarity Clear Urine pH 6.5 Ur Specific [place] 1.010 Urine Protein 15 H Urine Glucose (UA) 100 H Urine Ketones Negative Urine Occult Blood Negative Urine Nitrite Negative Urine Bilirubin Negative Urine Urobilinogen Normal Ur Leukocyte Esterase Negative Urine RBC 0 SEEN Urine WBC 0 SEEN Ur Squamous Epith Cells 0 SEEN Urine Bacteria 0 SEEN Urine Mucus 0 SEEN Management Discussion w/another healthcare provider: Hospitalist and production line worker/Case management Discharge Plan Triage Chief Complaint: [...] DO [Primary Care Provider] - Print Language: Tristanian What to do if you have Problems For any increased pain, shortness of breath, bleeding, nausea or vomiting, chestpain, or any unexpected problems, contact your Primary Care Provider. Call [facility] ([phone]) or report tothe closest Emergency Room. Call 911 if necessary. 04/19/25 0624 Cosigner Signature (if applicable): CC: Marci Lopez DO ~ Signed [facility]05-14-2025 History of Present illness Narrative* Rubina [...] that CIED system is MR conditional: Yes, [employer] Remote programming PATIENT PRESENTS WITH AN IMPLANTABLE OR ATTACHED CLIPPER COUNTERS: No RADIOLOGY DEPARTMENT: MR; Exam(s) Completed: Head: Routine Brain. Lavender Administered: No PERIPHERAL IV DATA: Not applicable SIGNED BY: DIONNA Shipman April 04, 2025 12:27 PM documented in this encounterBerger Hospital05-14-2025 NoteHNO ID: [id number] Author: RUBINA VALDOVINOS CT Service: Radiology Author [...] that CIED system is MR conditional: Yes, [employer] Remote programming PATIENT PRESENTS WITH AN IMPLANTABLE OR ATTACHED CLIPPER COUNTERS: No RADIOLOGY DEPARTMENT: MR; Exam(s) Completed: Head: Routine Brain. Lavender Administered: No PERIPHERAL IV DATA: Not applicable SIGNED BY: DIONNA Shipman April 04, 2025 12:27 PMMercy Health Willard [id number] Nurse Note* Janine Tompkins RN - 04/04/2025 [...] REVIEWED: YES PROCEDURE: MRI - Conditional Pacemaker [employer] [address] Justice Device - Settings: DOO 90 bpm Physiologic monitoring per standard operating procedure. See vital sign flowsheet. PERIPHERAL IV ACCESS: Not applicable PATIENT TOLERATED PROCEDURE: Without incident. PATIENT DISCHARGED TO: Home/Self Care SIGNED BY: TANIA Barnett Patient arrived here today for an MRI. Patients [employer] Pacemaker was placed in MRI safe mode by technical manager & device. Vitals remained stable throughout - see flowsheet. MRI was completed and then pacemaker was taken out of MRI safe mode and tolerated well. Patient was discharged home with family. [facility]05-14-[facility] Nurse Note* Janine Tompkins RN - [...] REVIEWED: YES PROCEDURE: MRI - Conditional Pacemaker [employer] [address] Justice Device - Settings: DOO 90 bpm Physiologic monitoring per standard operating procedure. See vital sign flowsheet. PERIPHERAL IV ACCESS: Not applicable PATIENT TOLERATED PROCEDURE: Without incident. PATIENT DISCHARGED TO: Home/Self Care SIGNED BY: TANIA Barnett Patient arrived here today for an MRI. Patients [employer] Pacemaker was placed in MRI safe mode by technical manager & device. Vitals remained stable throughout - see flowsheet. MRI was completed and then pacemaker was taken out of MRI safe mode and tolerated well. Patient was discharged home with family. documented in this encounterBerger Hospital05-12-2025 History of Present illness Narrative* Jelly [...] PATIENT PRESENTS WITH AN IMPLANTABLE OR ATTACHED CLIPPER COUNTERS: No RADIOLOGY DEPARTMENT: General X-ray: Exam(s) Completed: Chest X-Ray PERIPHERAL IV DATA: Not applicable SIGNED BY: Rayne Khoury April 02, 2025 9:34 AM documented in this encounterBerger Hospital05-12-2025 NoteHNO ID: [id number] Author: JELLY SANCHEZ Tech Service: ? Author Type: Computer Forensic Specialist Type: Progress Notes Filed: 04/02/2025 09:34 Note [...] PATIENT PRESENTS WITH AN IMPLANTABLE OR ATTACHED CLIPPER COUNTERS: No RADIOLOGY DEPARTMENT: General X-ray: Exam(s) Completed: Chest X-Ray PERIPHERAL IV DATA: Not applicable SIGNED BY: Rayne Khoury April 02, 2025 9:34 AMMercy Health Willard [id number] Telephone encounter Note* Telephone Encounter - Soumya Moss RN - 03/28/2025 9:45 AM EDT Voicemail received March 27, 2025 1458 Spouse calling to check on status of Austedo. Call to pharmacy, [employer]edo has been authorized. They will be reaching out to patient to discuss co-pay. [facility]05-07-2025 Miscellaneous Notes* Telephone Encounter - Soumya Moss RN - 03/28/2025 9:45 AM EDT Voicemail received March 27, 2025 1458 Spouse calling to check on status of Austedo. Call to pharmacy, [employer]edo has been authorized. They will be reaching out to patient to discuss co-pay. documented in this encounterBerger Hospital04-19-2025 Radiology Diagnostic study note [facility] Imaging Services [address] [place] [address] HIP, UNI W/ Pelvis 2-3 Views MR#: [id number] Acct: [id number] Name: MANSI CARO Rep #: [id number] 45 : 1955 F 70 From: Vickie Coles MD PCP: Marci Lopez DO Status: REG E R Study:HIP, UNI W/ Pelvis 2-3 Views Date of Ex am: 03/10/25 Exam# [id number] Ordering Dr: Mellisa Taylor PROCEDURE: HIP, UNI [...] IMPRESSION: Negative left hip radiographs. Reading Location: [id number] CC: Marci Lopez DO; AMRIK Harrison ~ Network Contractor: Signed [facility]04-19-2025 Telephone encounter Note* Telephone Encounter - Linda Valdez RN - 03/10/2025 8:02 AM EDT S-Patient and patient spouse calling in re: patient fell yesterday and has Left hip pain . B-Happened yesterday A-states having hard time walking due to pain, No COVID Symptoms. Has a brouis, no other sites withjayashree R-Scheduled Same Day After hours appt today @ 10:00a 03/10/25 @ [facility], address provided Reason for Disposition MILD weakness (i.e., does not interfere with ability to work, go to school, normal activities) (Exception: Mild weakness is a chronic symptom.) Answer Assessment - Initial Assessment Questions . Protocols used: Falls and Dntdbgc-BKNMX-WO [facility] [id number] Miscellaneous Notes* Telephone Encounter - Linda Valdez RN - 03/10/2025 8:02 AM EDT S-Patient and patient spouse calling in re: patient fell yesterday and has Left hip pain . B-Happened yesterday A-states having hard time walking due to pain, No COVID Symptoms. Has a brouis, no other sites withpain R-Scheduled Same Day After hours appt today @ 10:00a 03/10/25 @ [facility], address provided Reason for Disposition MILD weakness (i.e., does not interfere with ability to work, go to school, normal activities) (Exception: Mild weakness is a chronic symptom.) Answer Assessment - Initial Assessment Questions . Protocols used: Falls and Bzdwant-BEEBZ-BN documented in this encounterSMercy Health Springfield Regional Medical [id number] Telephone encounter Note* Telephone Encounter - Dipti Stewart - 03/09/2025 12:14 PM EDT Spouse called inquiring status of RX for valbenazine (INGREZZA) 40 mg capsule. Informed Spouse that order was signed on 02/27/2025. Order has been faxed to [facility]: [phone]. Spouse provided phone number for pharmacy ([phone]) to follow up on this request. Dipti Stewart [facility]04-18-2025 Miscellaneous Notes* Telephone Encounter - Dipti Stewart - 03/09/2025 12:14 PM EDT Spouse called inquiring status of RX for valbenazine (INGREZZA) 40 mg capsule. Informed Spouse that order was signed on 02/27/2025. Order has been faxed to [facility]: [phone]. Spouse provided phone number for pharmacy ([phone]) to follow up on this request. Dipti Stewart documented in this encounterBerger Hospital04-10-2025 Telephone encounter Note * Telephone Encounter [...] broken or abandoned leads. Thank you, Kalen Hall(R)(MR),[facility] MRI Safety Team [facility]04-10-2025 Miscellaneous Notes* Telephone Encounter - Kalen Casey RT(R) - 03/01/2025 3:27 PM EDT Hello, You have ordered an MRI on this patient with an implanted cardiac device. To clear the patient, as per our policy, patient will need a 2 view CXR prior to MRI scan. CXR is used to confirm there are no broken or abandoned leads. Thank you, Kalen Hall(R)(MR),[facility] MRI Safety Team documented in this encounterBerger Hospital04-09-2025 NoteHNO ID: [id number] Author: LEYLA MURPHY MD Service: ? Author Type: Physician Type: Progress Notes Filed: 02/28/2025 09:12 Note Text: [facility] - FOLLOW UP EVALUATION The patient consented to the use of Zymetis software for draft documentation of the visit consistent with [facility]?s Notice of Privacy Practices. Jesus Manuel Freitas DO, DO [address] [facility] [address] Dear Jesus Manuel Freitas DO, DO: I [...] that cannabis use during a visit to [place] temporarily alleviated her symptoms. She reports difficulty [...] 02/27/2025 in N (more content not included)... [facility]04-09-2025 History of Present illness Narrative* Leyla Murphy MD - 02/28/2025 8:58 AM EDT [facility] - FOLLOW UP EVALUATION The patient consented to the use of ambient AI software for draft documentation of the visit consistent with [facility] s Notice of Privacy Practices. Jesus Manuel Freitas DO, DO [address] [facility] [address] Dear Jesus Manuel Freitas, DO, DO: I had the pleasure of [...] that cannabis use during a visit to [place] temporarily alleviated her symptoms. She reports difficulty [...] Row Office Visit from 02/27/2025 in Neurology [facility] from 10/20/2023 in Neurological [facility] T Score 26.7 32.4 [...] HERVE MARIN Current Outpatient Medications Medication Sig Acetaminophen [...] 2+ 2+ Achilles 1+ 1+ Coordination Right: Nkudxq-fg-zgux normal. Rapid alternating movement normal. Cqmj-nc-bvee normal.Left: Hxddra-sv-drxw normal. Rapid alternating movement normal. Isec-kt-fdtt normal. Gait Casual gait: Wide stance. Reduced [...] Ingrezza 40 mg daily; prescription sent to [facility] for processing. - Patient and family educated on potential side effects and the process of obtaining medication through a specialty pharmacy. The following are the current problems noted and addressed during this visit: Essential tremor (primary encounter diagnosis) Dyskinesia, tardive Plan 02/27/2025 Visit: - Start taking Ingrezza 40 mg daily for mouth movements; prescription sent to [facility]. Once this is controlled [...] or around: 05/29/25 Level of service : 71732 (40-68 min). Time spent 67 min on the day of service, which included preparing to see the patient, hzin-jb-wqrq patient care, completing clinical documentation, obtaining and/or [...] Sincerely, Leyla Murphy MD documented in this encounterBerger Hospital04-09-2025 History of Present illness Narrative* Michel Ibrahim - 02/28/2025 7:32 AM EDT [facility] received prescription(s) for Ingrezza from Leyla Murphy's office. Benefits investigation was conducted, indicating that a prior authorization is required by patient's insurance plan with [employer]. Encounter will be updated once prior authorization has been submitted by [facility]. Michel Ibrahim CPhT Neurology, Cardiology & Infectious Disease [facility] documented in this encounterBerger Hospital04-09-2025 NoteHNO ID: [id number] Author: WESLEY HAYES RPh Service: ? Author Type: Pharmacist Type: Progress Notes Filed: 03/09/2025 16:31 Note Text: [facility] received prescription(s) for Ingrezza from Leyla Murphy's office. Benefits investigation was conducted, indicating that a prior authorization is required by patient's insurance plan with [employer]. PA was denied with details listed below. Plan Name: [employer] Medicare Plan Agent/Rios: [id number] Case: [id number] Phone/ / [phone] Case: Denial reason: Full denial letter has been scanned into patients chart. [facility] will review and assess if appeal is appropriate. Note will be updated accordingly. Wesley [facility]04-09-2025 NoteHNO ID: [id number] Author: WESLEY HAYES [facility] Service: ? Author Type: Pharmacist Type: Progress Notes Filed: 03/29/2025 10:22 Note Text: [facility] received prescription(s) for Autedo from Leyla Murphy's office. Benefits investigation was conducted, indicating that a prior authorization is required by patient's insurance plan with [employer]. PA was approved with details listed below: Plan Name: [employer] Medicare Approval Dates: 03/13/25 - 11/21/25 Pt's copay is $196. Shipment has been arranged, and pt will receive medication(s) on 03/30. Pt has been instructed to follow-up with clinic to confirm start date. 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 [...] and is willing to rechallenge [facility] RN Problem List Noted Noted By Resolved Resolved By Spastic hemiparesis (HCC) 05/13/2023 Ghazala Gusman MD No Parkinsonism (HCC) 06/25/2022 Sherif Ramirez MD No Cholelithiasis 12/26/2014 Jasper Jackson MD No Peripheral vertigo, unspecified 01/14/2010 Radha Ogden No Vertigo of central origin 01/14/2010 Radha Ogden No Acute, but ill-defined, cerebrovascular disease 08/14/2009 Florina Alfonso (Rn)(Hist), RN No Personal history of colonic polyps 02/21/2015 Guy Mcgarry MD 02/21/2015 Computer Forensic Specialist Assessment Patient confirmed: Yes Med/dose confirmed: Yes Supplies needed: Welcome packet Copay amount: 196 Copay form of payment: Credit card on file Payment confirmed: Yes Delivery method: FedEx Signature required: Waived on patient request Delivery address: [address] [place] [address] Delivery date: 03/30/25 Questions or concerns for the pharmacist?: Yes Patient questions/concerns: Medication cost, Medication dose, Medication route, Medication storage, Side effects, Delivery Did you have any side effects believed to be related to this medication, that resulted in hospitalization?: No [facility] [place] CLINICAL ASSESSMENT - NEUROLOGY V7: Assessment to use: Initial Vaccination status assessment at initiation as andra (more content not included)...[facility]04-09-2025 NoteHNO ID: [id number] Author: ?, ?, ? Service: ? Author Type: ? Type: Progress Notes Filed: 03/13/2025 08:39 Note Text: [facility] received prescription(s) for Autedo from Leyla Murphy's office. Benefits investigation was conducted, indicating that a prior authorization is required by patient's insurance plan with [employer]. Note will be updated once prior authorization has been submitted. Jose Taveras CPhT (Dee) [facility] Neurology/Cardiology/Infections Disease [facility] P: F: [facility]04-09-2025 NoteHNO ID: [id number] Author: ?, ?, ? Service: ? Author Type: ? Type: Progress Notes Filed: 03/16/2025 15:10 Note Text: [facility] received prescription(s) for Austedo from Dr. Murphy's office. Benefits investigation was conducted, indicating that a prior authorization is required. PA was approved with details listed below. Plan Name: [employer] Medicare Approval Dates: 03/13/25 - 11/21/25 Prescriptions will now be processed through [facility] for determination of next steps. Estefany Anguiano CPhT [facility], Neurology, Cardiology, AND Infectious Disease P: [phone] F: [phone]04-09-2025 NoteHNO ID: [id number] Author: ?, ?, ? Service: ? Author Type: ? Type: Progress Notes Filed: 03/07/2025 10:28 Note Text: PA was initiated and pending review. Plan Name: [employer] Medicare Plan Agent/Rios: [id number] Case: [id number] Timeline: Standard Michel Ibrahim CPhT Neurology, Cardiology AND Infectious Disease [facility]04-09-2025 NoteHNO ID: [id number] Author: ?, ?, ? Service: ? Author Type: ? Type: Progress Notes Filed: 02/28/2025 07:34 Note Text: [facility] received prescription(s) for Ingrezza from Leyla Murphy's office. Benefits investigation was conducted, indicating that a prior authorization is required by patient's insurance plan with [employer]. Encounter will be updated once prior authorization has been submitted by [facility]. Michel Ibrahim CPhT Neurology, Cardiology AND Infectious Disease [facility]04-08-2025 Telephone encounter Note* Telephone Encounter - Dipti Stewart - 02/27/2025 4:54 PM EDT Patient's spouse reports that Patient has a DRYWALL CONTRACTOR-D implant (Cardiac Resynchronization Therapy with Defibrillator). Per scheduling protocol, staff message forwarded to Imaging Implants pool to contact Patient for appointment coordination/scheduling. Patient/Spouse will be contacted within 4 business days. Dipti Stewart [facility]04-08-2025 Miscellaneous Notes* Telephone Encounter - Dipti Stewart - 02/27/2025 4:54 PM EDT Patient's spouse reports that Patient has a DRYWALL CONTRACTOR-D implant (Cardiac Resynchronization Therapy with Defibrillator). Per scheduling protocol, staff message forwarded to Imaging Implants pool to contact Patient for appointment coordination/scheduling. Patient/Spouse will be contacted within 4 business days. Dipti Stewart documented in this encounterBerger Hospital04-08-2025 Instructions* Patient Instructions* Leyla Murphy MD - 02/27/2025 4:44 PM EDT It was a pleasure to see you today. We addressed the following diagnoses: Essential tremor (primary encounter diagnosis) Dyskinesia, tardive My recommendations are as follows: - Start taking Ingrezza 40 mg daily for mouth movements; prescription sent to [facility]. Once this is controlled [...] or you can send a message through [email or web address]. You can also now schedule and select appointments through [email or web address]. Leyla Murphy MD documented in this encounterBerger Hospital03-25-2025 Evaluation note* Diagnosis Onset Date Resolution Status Admit Date Abdominal pain acute January 9:03am Pelvic pain acute February 13 025 9:03am Chronic constipation chronic Nirmal h [...] artery acute May 29, 2025 3 :08pm [facility] Work Phone: 1(697) 774-714603-25-2025 Evaluation note* Diagnosis Onset Date Resolution Status [...] Abdominal pain acute May 30, 2025 1:59pm [facility] Work Phone: 1(959) 763-459403-25-2025 Evaluation note* Diagnosis Onset Date Resolution Status [...] 2025 1:59pm Ischemic colitis acute May 1:59pm [facility] Work Phone: 1(962) 412-316803-25-2025 Evaluation note* Diagnosis Onset Date Resolution Status [...] 02 1:36pm Pneumonia inactive June 02 1:36pm [facility] Work Phone: [phone] [id number] Telephone encounter Note* Telephone Encounter - Sari Parra RN - 01/28/2025 2:35 PM EDT S: Patient's spoke with [facility] nurse regarding medication concern B: [...] unable toanswer question Protocols used: Medication Question [id number]-[id number] [id number] Miscellaneous Notes* Telephone Encounter - Sari Parra RN - 01/28/2025 2:35 PM EDT S: Patient's spoke with [facility] nurse regarding medication concern B: [...] unable toanswer question Protocols used: Medication Question [id number] documented in this [facility]03-04-2025 Evaluation note* Diagnosis Onset Date Resolution Status Admit Date Anemia chronic January 23 1:02pm Abdominal pain acute January 9:03am Pelvic pain acute February 13, 2 025 9:03am Chronic constipation chronic Nirmal 2024 9:03am Abdominal pain acute January 8:26am Blood in stool acute January 8:26am Anemia chronic February 14 8:26am Chronic constipation chronic Nirmal 2024 8:26am Generalized weakness acute April 19, [...] Chronic anemia chronic April 25, 2025 6:41am [facility] Work Phone: 1(271) 435-683202-28-2025 Telephone encounter Note* Telephone Encounter - Dipti [...] has been notified of appt change via [email or web address] message. Dipti Stewart [facility]02-28-2025 Miscellaneous Notes* Telephone Encounter - Dipti [...] has been notified of appt change via [email or web address] message. Dipti Stewart documented in [facility]Ber[facility]02-28-[facility] History of Present illness Narrative* Mellisa Coats [...] PATIENT PRESENTS WITH AN IMPLANTABLE OR ATTACHED CLIPPER COUNTERS: No RADIOLOGY DEPARTMENT: CT; Exam(s) Completed: Chest PERIPHERAL IV DATA: Not applicable SIGNED BY: TECHNOLOGIST Bhavya January 19, 2025 10:06 AM documented in this encounterBerger Hospital02-28-2025 NoteHNO ID: [id number] Author: MELLISA COATS TECHNOLOGIST Service: ? Author [...] PATIENT PRESENTS WITH AN IMPLANTABLE OR ATTACHED CLIPPER COUNTERS: No RADIOLOGY DEPARTMENT: CT; Exam(s) Completed: Chest PERIPHERAL IV DATA: Not applicable SIGNED BY: Mellisa Coats, TECHNOLOGIST January 19, 2025 10:06 [facility]02-27-2025 Evaluation note* Diagnosis Onset Date Resolution Status [...] Chronic constipation chronic Nirmal h 2024 8:26am [facility] Work Phone: 1(890) 646-608802-27-2025 Evaluation note* Diagnosis Onset Date Resolution Status [...] Generalized weakness acute April 19, 2025 11:26am [facility] Work Phone: 1(510) 691-368502-27-2025 Evaluation note* Diagnosis Onset Date Resolution Status [...] Chronic anemia chronic April 25, 2025 6:41am [facility] Work Phone: 1(773) 592-614501-07-2025 Evaluation note* Diagnosis Onset Date Resolution Status Admit Date Ischemic cardiomyopathy acute J anuary 2024 1:48pm Presence of biventricular implantable cardioverter-defibrillator acute Novua ry 2024 1:48pm Syncope and collapse acute Rogelio 2024 1:48pm Abdominal pain acute December 122024 [...] January 9:03am Pelvic pain acute February 13, 9:03am Chronic constipation chronic Nirmal h 2024 9:03am Abdominal pain acute January 8:26am Blood in stool acute January 8:26am Anemia chronic February 14 8:26am Chronic constipation chronic Nirmal h 2024 8:26am [facility] Work Phone: 1(983) 836-246801-03-2025 Telephone encounter Note* Telephone Encounter - Becky Diaz - 11/24/2024 12:43 PM EST Name of caller: Song Contact phone number: [phone] Relationship to Patient: spouse/SO Provider: John Practice: [facility] Chief Complaint/Reason for Call: Patient , Beatrice, is calling to follow up with Dr. Lopez after patient appointment with her Gasteoenterologist. He is requesting a call back to discuss what happened at her appointment regarding her colitis diagnosis. He can be reached at [phone]. Best time of day caller can be reached: Any Patient advised that office/PCP has 24-48 business hours to return their call: N/A [facility] [id number] Miscellaneous Notes* Telephone Encounter - Becky Diaz - 11/24/2024 12:43 PM EST Name of caller: Song Contact phone number: [phone] Relationship to Patient: spouse/SO Provider: John Practice: [facility] Chief Complaint/Reason for Call: Patient , Beatrice, is calling to follow up with Dr. Lopez after patient appointment with her Gasteoenterologist. He is requesting a call back to discuss what happened at her appointment regarding her colitis diagnosis. He can be reached at [phone]. Best time of day caller can be reached: Any Patient advised that office/PCP has 24-48 business hours to return their call: N/A documented in this [facility]01-02-2025 Evaluation note* Diagnosis Onset Date Resolution Status Admit Date Chronic abdominal pain inactive Ja 2024 1:56pm Ischemic cardiomyopathy acute J anuary [...] Chronic constipation chronic Nirmal h 2024 8:26am [facility] Work Phone: 1(227) 752-727412-26-2024 Telephone encounter Note* Telephone Encounter - Karis Bolden - 11/16/2024 10:17 AM EST Name of caller: Song Contact phone number: [phone] Relationship to Patient: spouse/SO Provider: Dr Marci Lopez Practice: [facility] Chief Complaint/Reason for Call: Song called to let doctor know appointment is set for 12/19/24 with vascular surgeon, and is not sure if that's soon enough. Please advise Best time of day caller can be reached: PM [facility] HospitalLfeqjx37-32-0345 Miscellaneous Notes* Telephone Encounter - Karis Bolden - 11/16/2024 10:17 AM EST Name of caller: Song Contact phone number: [phone] Relationship to Patient: spouse/SO Provider: Dr Marci Lopez Practice: [facility] Chief Complaint/Reason for Call: Song called to let doctor know appointment is set for 12/19/24 with vascular surgeon, and is not sure if that's soon enough. Please advise Best time of day caller can be reached: PM documented in this [facility]12-24-2024 Telephone encounter Note* Telephone Encounter - Ghazala Gusman MD - 11/14/2024 4:08 PM EST Needs to come back in to reassess. In the meantime- can increase from 5mg qid to 10mg tid- messaged patient. [facility]12-24-2024 Miscellaneous Notes* Telephone Encounter - Ghazala [...] can prescribe to help with this? Pharmacy: [facility] Pharmacy in [place], [place] documented in this encounterBerger Hospital12-24-2024 Telephone encounter Note * Telephone Encounter [...] stable. F/u 12 months Janee Argueta RN [facility]12-23-2024 Telephone encounter Note* Telephone Encounter - [...] can prescribe to help with this? Pharmacy: [facility] Pharmacy in [place], [place] [facility]11-28-2024 Evaluation note* Diagnosis Chronic kidney disease, stage 3a (HCC)- Primary documented in this encounter [facility] [id number] Telephone encounter Note* Telephone Encounter - Antonio Lockhart - 10/06/2024 4:26 PM EST Name of caller: Song Contact phone number: [phone] Relationship to Patient: spouse/SO Provider: Dr. Lopez Practice: [facility] Chief Complaint/Reason for Call: Song wanted to ask Dr. Lopez to consider long covid for patient. States all the symptoms are there. Requesting a call back to discuss. Please advise. Best time of day caller can be reached: any Patient advised that office/PCP has 24-48 business hours to return their call: [facility]11-15-2024 Miscellaneous Notes* Telephone Encounter - Antonio Lockhart - 10/06/2024 4:26 PM EST Name of caller: Song Contact phone number: [phone] Relationship to Patient: spouse/SO Provider: Dr. Lopez [...] to return their call: documented in this [facility]09-22-2024 NoteHNO ID: [id number] Author: ROXANNE BOO RT(R) Service: ? Author Type: Computer Forensic Specialist Type: Progress Notes Filed: 08/13/2024 11:59 Note [...] PATIENT PRESENTS WITH AN IMPLANTABLE OR ATTACHED CLIPPER COUNTERS: NA CREATININE: Creatinine Date Value Ref Range [...] safety can be found using this link: [email or web address]%[email or web address]-% 20Diagnostic%20Nuclear%20Medicine%20Procedures.pdf SIGNATURE: DIONI Sanchez) PATIENT NAME: Mansi Caro DATE: August 13, 2024 TIME: 11:58 AM PAGER/CONTACT #:[facility]09-22-2024 History of Present illness Narrative* Roxanne [...] PATIENT PRESENTS WITH AN IMPLANTABLE OR ATTACHED CLIPPER COUNTERS: NA CREATININE: Creatinine Date Value Ref Range [...] 1150 PATIENT DISCHARGED TO: Ambulatory patient, left OR department area. A Diagnostic radioactive procedure has taken place, with no further precautions necessary other than routine body substance precautions. More information regarding radiation safety can be found usingthis link: [email or web address]%20Protection%20-% 20Diagnostic%20Nuclear%20Medicine%20Procedures.pdf SIGNATURE: RT Daniel(Bairon) PATIENT NAME: Mansi Caro DATE: August 13, 2024 TIME: 11:58 AM PAGER/CONTACT #: documented in this encounterBerger Hospital09-14-2024 Telephone encounter Note * Telephone Encounter [...] yesterday was 80, and oxygen level 99%, %. States her weight was up 2 pounds from yesterday and will give her lasix 20mg prn per order. Eating and drinking as normal. Bowel as normal with Miralax, urine as normal. States that jewelry enameler states he thinks her left side pain [...] Protocols used: Information Only Call - No Vchuek-DQFEE-RY [facility] [id number] Miscellaneous Notes* Telephone Encounter - Dulce Maria Gibson RN - 08/05/2024 11:18 AM EDT S: Patient spoke with [facility] nurse regarding weakness and fatigue B: Onset of symptoms/concern ongoing A: States she seems to be getting weaker with time. She is now using a walker while a couple of weeks ago she was independent. Could she benefit from physical therapy? States today's blood pressure is 106/74 and yesterdays was 116/67, heart rate 74, yesterday was 80, and oxygen level 99%, mwpdtfhta28%. States her weight was up 2 pounds from yesterday and will give her lasix 20mg prn per order. Eating and drinking as normal. Bowel as normal with Miralax, urine as normal. States that jewelry enameler states he thinks her left side pain [...] Protocols used: Information Only Call - No Qbhsrl-BWCFK-RH documented in this [facility]09-13-2024 Telephone encounter Note* Telephone Encounter - Anna Zarco RN - 08/04/2024 12:52 PM EDT S: Patient , Song, spoke with [facility] nurse regarding no improvement on weakness or fatigue B: Onset of symptoms/concern 08/04/24 A: States they wanted to give status update on patient. Song states no improvement of weakness or fatigue after seeing selvage machine operator or vascular surgeon. States patient will be seeing jewelry enameler today at 230. Declined triage as they [...] Protocols used: Information Only Call - No Tbwgrb-JDFWZ-JR [facility] HospitalDxjjzm80-05-1016 Miscellaneous Notes* Telephone Encounter - Anna Zarco RN - 08/04/2024 12:52 PM EDT S: Patient , Song, spoke with [facility] nurse regarding no improvement on weakness or fatigue B: Onset of symptoms/concern 08/04/24 A: States they wanted to give status update on patient. Song states no improvement of weakness or fatigue after seeing selvage machine operator or vascular surgeon. States patient will be seeing jewelry enameler today at 230. Declined triage as they [...] Protocols used: Information Only Call - No Kpoubt-KIKMF-QQ documented in this [facility]08-30-2024 History of Present illness Narrative* Yi Caal RT(R) - 07/21/2024 11:30 AM EDT Radiology [...] PATIENT PRESENTS WITH AN IMPLANTABLE OR ATTACHED CLIPPER COUNTERS: N/A RADIOLOGY DEPARTMENT: CT; Exam(s) Completed: Chest PERIPHERAL IV DATA: Not applicable SIGNED BY: DIONI Mack) July 21, 2024 11:07 AM documented in this encounterBerger Hospital08-30-2024 NoteHNO ID: [id number] Author: YI CAAL RT(R) Service: ? Author [...] PATIENT PRESENTS WITH AN IMPLANTABLE OR ATTACHED CLIPPER COUNTERS: N/A RADIOLOGY DEPARTMENT: CT; Exam(s) Completed: Chest PERIPHERAL IV DATA: Not applicable SIGNED BY: RT Martina(R) July 21, 2024 11:07 [facility]08-20-2024 Telephone encounter Note * Telephone Encounter - Deonna Sommer - 07/11/2024 3:20 PM EDT Name of caller: Ashtyn Contact phone number: [phone] Relationship to Patient: [place] [facility] Provider: Dr. Lopez Practice: [facility] Chief Complaint/Reason for Call: Ashtyn from [facility] called in regards to a message they received from the office and they are not sure what this was in regards to. Ashtyn is requesting a call back and they can be reached at #[phone]. Please advise. Best time of day caller can be reached: Any Patient advised that office/PCP has 24-48 business hours to return their call: No [facility] HospitalQeyphy02-92-5092 Miscellaneous Notes* Telephone Encounter - Deonna Sommer - 07/11/2024 3:20 PM EDT Name of caller: Ashtyn Contact phone number: [phone] Relationship to Patient: [place] [facility] Provider: Dr. Lopez Practice: [facility] Chief Complaint/Reason for Call: Ashtyn from [facility] called in regards to a message they received from the office and they are not sure what this was in regards to. Ashtyn is requesting a call back and they can be reached at #[phone]. Please advise. Best time of day caller can be reached: Any Patient advised that office/PCP has 24-48 business hours to return their call: No documented in this encounterSMercy Health Springfield Regional Medical CenterUojzjt17-02-0931 NoteS: Patient's Song spoke with [facility] nurse regarding patient's xray, and referral B: Onset of symptoms/concern today A: Song wants to discuss the result of the patient's xray, and state he with the patient's buttonhole tacker and was advised to see a selvage machine operator. R: Please call Song at his # [phone] to discuss these issues. Patient understands care advice. No further needs at this time. Patient instructed to call back with new or worsening symptoms. Reason for Disposition [1] Follow-up call from patient regarding patient's clinical status AND [2] information urgent Protocols used: PCP Call - No Wlzwwx-FMNJN-CESydmaAltru Health System08-20-2024 Telephone encounter Note* Telephone Encounter - Bill Deluca RN - 07/11/2024 12:14 PM EDT S: Patient's Song spoke with [facility] nurse regarding patient's xray, and referral B: Onset of symptoms/concern today A: Song wants to discuss the result of the patient's xray, and state he with the patient's buttonhole tacker and was advised to see a selvage machine operator. R: Please call Song at his # [phone] to discuss these issues. Patient understands care advice. No further needs at this time. Patient instructed to call back with new or worsening symptoms. Reason for Disposition [1] Follow-up call from patient regarding patient's clinical status AND [2] information urgent Protocols used: PCP Call - No Qwcbmm-RCFQE-EP [facility] [id number] Miscellaneous Notes* Telephone Encounter - Bill Deluca RN - 07/11/2024 12:14 PM EDT S: Patient's Song spoke with [facility] nurse regarding patient's xray, and referral B: Onset of symptoms/concern today A: Song wants to discuss the result of the patient's xray, and state he with the patient's buttonhole tacker and was advised to see a selvage machine operator. R: Please call Song at his # [phone] to discuss these issues. Patient understands care advice. No further needs at this time. Patient instructed to call back with new or worsening symptoms. Reason for Disposition [1] Follow-up call from patient regarding patient's clinical status AND [2] information urgent Protocols used: PCP Call - No Vdjmgg-PQTAK-JA documented in this encounterSMercy Health Springfield Regional Medical CenterVldweb57-72-8849 [facility]08-07-2024 Telephone encounter Note* Telephone Encounter - Jennifer Garrido Peggy - 06/28/2024 8:08 AM EDT Name of caller: Song Contact phone number: [phone] Relationship to Patient: Spouse Provider: Practice: Chief Complaint/Reason for Call: Patients Spouse called in to cancel appointment today at 10 am forLab work. Spouse stated he just got home with the Patient from the Emergency Room. Spouse stated the Patient had some labs done in the [facility] and wanted to inform the doctor. Please advise. Best time of day caller can be reached: N/A Patient advised that office/PCP has 24-48 business hours to return their call: N/A [facility] HospitalQdappi74-79-5760 Miscellaneous Notes* Telephone Encounter - Jennifer Garrido Peggy - 06/28/2024 8:08 AM EDT Name of caller: Song Contact phone number: [phone] Relationship to Patient: Spouse Provider: Practice: Chief Complaint/Reason for Call: Patients Spouse called in to cancel appointment today at 10 am forLab work. Spouse stated he just got home with the Patient from the Emergency Room. Spouse stated the Patient had some labs done in the [facility] and wanted to inform the doctor. Please advise. Best time of day caller can be reached: N/A Patient advised that office/PCP has 24-48 business hours to return their call: N/A documented in this encounterSMercy Health Springfield Regional Medical CenterEmzlof65-86-7304 History of Present illness Narrative* Ghazala Gusman [...] noted at rest but better with activity. DRYWALL CONTRACTOR D placed on 05/12/22. Ongoing issues: Feeling [...] hypokalemia and dehydration with that hosptilzation at [facility] Recent cataract removal b/l No new [...] which included preparing to see the patient, ofrz-um-yrpv patient care, completing clinical documentation, performing a medically appropriate examination, counseling and educating the patient/family/caregiver, and ordering medications, tests,or procedures. documented in this encounterBerger Hospital04-22-2024 Discharge summary Author Alonso [facility] March 13, 2024 5:55pm Note Date/Time March 13, 2024 5:5 0pm [facility] Medical Records Department [address] [place] [address] Discharge Summary 03/13/24 1747 MR#: [id number] Acct: [id number] Name: MANSI CARO Rep #:[id number] : 1955 69 From: Alonso Marte MD PCP: Dr. 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 * Diabetes Mellitus [...] dischargehome with . Discharge home with 03/15/2024, [facility] PT/OT/ST/SN. Physical Exam Const alert General [...] pain Additional Instructions: Discharge home with 03/15/2024, [facility] PT/OT/ST/SN. Please Follow Up With: Shan [...] Instructions / Restrictions: Discharge home with 03/15/2024, [facility] PT/OT/ST/SN. Discharge Orders/Prescriptions Prescriptions: New acetaminophen [...] can be placed): Home Health Service 03/13/24 3283 <Electronically signed by Alonso Marte MD> Cosigner Signature (if applicable): CC: Dr. Adrienne Byers DO; Dr. Alonso Marte MD~ Signed [facility] Work Phone: 1(722) 998-241204-10-2024 Progress note Author Alonso [facility] March 01, 2024 4:01pm Note Date/Time March 01, 2024 2:5 6pm [facility] Medical Records Department [address] [place] [address] Progress Note - Pharmacy 03/01/24 1452 MR#: [id number] Acct: [id number] Name: MANSI CARO Rep #:[id number] : 1955 69 From: Carlotta Singletary PCP: Dr. Adrienne Byers DO Status:ADM [place] [address] Documented by User: Carlotta Singletary 03/01/24 15:37 [...] 81 Mg Tablet PO DAILYCM [facility] Atorvastatin Calcium 40 mg 02/29/24 22:00 02/29/24 [...] 08:00 Metformin (Xr) 500 Mg Tablet PO DAILYCM [facility] Metoprolol Succinate 12.5 mg 03/01/24 10:00 03/01/24 08:52 Metoprolol(Xl)Succ 25 Mg Tablet PO 12.5 mg DAILY [facility] Administration Protocol Multivitamins 1 tablet 03/01/24 08:00 03/01/24 08:49 Multivitamins,Therapeutic Tablet PO 1 tablet DAILYCM [facility] Administration Nutritional Formula (Lactose Free) 120 ml 03/01/24 12:45 03/01/24 13:39 Glucerna Shake 120 Ml Liquid PO Not Given TIDCM [facility] Pantoprazole Sodium 40 mg 02/29/24 22:00 03/01/24 08:52 Pantoprazole Sodium 40 Mg Tablet PO 40 mg BID [facility] Administration Polyethylene Glycol 17 gm 03/01/24 10:00 03/01/24 08:48 Polyethylene Glycol 3350 17 Gm Packet PO 17 gm DAILY [facility] Administration Potassium Chloride 20 meq 03/01/24 08:00 03/01/24 09:08 Potassium Chloride Oral Tablet 20 Meq PO 20 meq BIDCM [facility] Administration Prochlorperazine Maleate 10 mg 03/01/24 13:07 03/01/24 13:38 Prochlorperazine 5 Mg Tablet PO 10 mg Q4H PRN PRN Administration NAUSEA/VOMITING Sacubitril/Valsartan 0.5 each 02/29/24 22:00 03/01/24 08:50 Sacubitril/Valsartan 24/26 Mg Tablet PO 0.5 each BID [facility] Administration Sodium Chloride 10 - [...] by Alonso Marte MD> CC: ~ Signed [facility] Work Phone: 1(667) 117-396904-09-2024 History and physical note Author Alonso Marte [facility] February 29, 2024 8:00pm Note Date/Time February 29, 2024 7:43 pm [facility] Medical Records Department [address] [place], [place] [address] [place] [address] History & Physical Exam 02/29/241933 MR#: [id number] Acct: [id number] Name: MANSI CARO Rep #:[id number] : 1955 69 From: Alonso Marte MD PCP: Dr. Adrienne Byers, DO Status:ADM [facility] - General General Date of Admission: 02/29/24 Date of Service: 02/29/24 Chief Complaint: Here for rehabilitation. HPI Narrative 02/21/2024 MANSI CARO, is a 69 Female who presents to [facility] ED with abdominal pain. Abdominal pain, [...] Morphine, Zofran, Unasyn given. 02/21/2024 Admit to [facility]. IV antibiotics, consult GI for colitis. [...] to discharge home with . [facility] Medical History (Updated 02/29/24 @ 19:[address] Alonso Marte MD) Anxiety and depression AV node dysfunction Cardiac resynchronization therapy defibrillator (DRYWALL CONTRACTOR-D) in place Cerebral palsy Congestive heart failure [...] Fever, pain - 08/31 #0 tabs 02/29/24 [Rx Last Taken [...] 2mg daily. 02/29/241999 <Electronically signed by Alonso Mrate MD> Cosigner Signature (if applicable): CC: Dr. Adrienne Byers DO; Dr. Alonso Marte MD~ Signed [facility] Work Phone: 1(496) 197-921204-09-2024 Progress note Author Yoandy Thakkar [facility] February 29, 2024 10:26am Note Date/Time February 29, 2024 10:2 6am [facility] Medical Records Department [address] [place] [address] Progress Note - Infect Disease 02/29/24 1025 MR#: [id number] Acct: [id number] Name: MANSI CARO Rep #:[id number] : 1955 69 From: Yoandy knight MD PCP: Dr. Adrienne Byers DO Status:ADM IN Location: [facility] DF615-7 Physical Exam Narrative Feeling better, abd pain [...] Cosigner Signature (if applicable): CC: ~ Signed [facility] Work Phone: 1(666) 972-445304-09-2024 Discharge summary Author Ganesh Kiran [facility] February 29, 2024 11:33am Note Date/Time February 29, 2024 7:35 am [facility] Medical Records Department [address] [place] [address] Transfer to [facility] MR#: [id number] Acct: [id number] Name: MANSI CARO Rep #:[id number] : 1955 69 From: Ganesh Amaya PCP: Dr. Adrienne Byers, DO Status:ADM IN Certification of patient admission REQUIRED AT TIME OF ADMISSION. I CERTIFY THAT POST-HOSPITAL ECF SERVICES ARE REQUIRED TO BE GIVEN ON AN IN-PATIENT BASIS BECAUSE OF THE ABOVE NAMED PATIENT'S NEED FOR RESIDENTIAL CARE ON A CONTINUING BASIS FOR THE CONDITION(S) FOR WHICH HE/SHE WAS RECEIVING IN-PATIENT HOSPITAL SERVICES PRIOR TO HIS/HER TRANSFER TO THE ECF. 02/29/24 1133<Electronically signed by Ganesh Kiran MD> [...] to 6. * Patient was evaluated by buttonhole tacker 02/27: Patient passing flatus but no bowel [...] required. DVT prophylaxis: SCDs. Discussed with the telehealth case manager. Patient's wanted to go to [...] PO Q4H PRN PRN (Reason: Fever, pain 1-10/) Qty: 0 0RF budesonide 3 mg Capsule,Delayed,Extend.Release [...] in before D/C Order can be placed): [facility] 02/29/24 7413 <Electronically signed by Ganesh Kiran MD> Cosigner Signature (if applicable): CC: Dr. Ben Johnson DO; Dr. Adrienne Byers DO; Dr. Heike Horta MD; Dr.Robert Ariane MD ~ [facility] Work Phone: 1(709) 679-722504-08-2024 Progress note Author Shan Lockett [facility] February 28, 2024 5:29pm Note Date/Time February 28, 2024 5:30 pm [facility] Medical Records Department [address] [place] [address] Progress Note - GI 02/28/24 1727 MR#: [id number] Acct: [id number] Name: MANSI CARO Rep #:[id number] : 1955 69 From: Shan Lockett DO PCP: Dr. Adrienne Byers DO Status:ADM IN Location: [place] [address] Subjective Subjective Patient's diarrhea has subsided with [...] (Auto) 44.0 L, Lymph % (Auto) 44.4 H,[place] % (Auto) 6.9, Eos % (Auto) 4.3, [...] that plan. Charges/Coding Visit Charges Inpatient E&M: 00844 Subs Hosp L3 02/28/24 1729 <Electronically signed by Shan Friend DO> Cosigner Signature (if applicable): CC: ~ Signed [facility] Work Phone: 1(683) 707-939704-08-2024 Progress note Author Ganesh Kiran [facility] February 28, 2024 1:13pm Note Date/Time February 28, 2024 8:26 am [facility] Medical Records Department [address] [place] [address] Progress Note - Hospitalist 02/28/24 0823 MR#: [id number] Acct: [id number] Name: MANSI CARO Rep #:[id number] : 1955 69 From: Ganesh Amaya PCP: Dr. Adrienne Byers, DO Status:ADM IN Location: [place] [address]1 Reason for Visit Reason for Visit: Diagnoses [...] (Auto) 44.0 L, Lymph % (Auto) 44.4 H,[place] % (Auto) 6.9, Eos % (Auto) 4.3, [...] to 6. * Patient was evaluated by buttonhole tacker 02/27: Patient passing flatus but no bowel [...] required. DVT prophylaxis: SCDs. Discussed with the telehealth case manager. Patient's wanted to go to TCU. Charges/Coding Visit Charges Inpatient E&M: 82445 Subs Hosp L2 02/28/24 1313 <Electronically signed by Ganesh Kiran MD> Cosigner Signature (if applicable): CC: ~ Signed [facility] Work Phone: 1(427) 932-779504-08-2024 Consult note Author Yoandy Thakkar [facility] February 28, 2024 1:02pm Note Date/Time February 28, 2024 1:02 pm [facility] Medical Records Department [address] [place] [address] Consultation - Infectious Dx 02/28/24 1258 MR#: [id number] Acct: [id number] Name: MANSI CARO Rep #:[id number] : 1955 69 From: Yoandy knight MD PCP: Dr. Adrienne Byers, DO Status:ADM IN Location: [place] [address]1 Assessment & Plan Assessment/Plan (1) Colitis: PLAN: [...] neg except as noted above. [facility] Medical History Anxiety and depression AV node dysfunction Cardiac resynchronization therapy defibrillator (DRYWALL CONTRACTOR-D) in place Cerebral palsy Congestive heart failure [...] (Auto) 44.0 L, Lymph % (Auto) 44.4 H,[place] % (Auto) 6.9, Eos % (Auto) 4.3, [...] Heike Horta MD; Dr.Robert Ariane MD~ Signed [facility] Work Phone: 1(508) 281-754304-08-2024 Consult note Author Bill Victor [facility] February 28, 2024 2:46am Note Date/Time February 28, 2024 2:46 am [facility] Medical Records Department [address] [place] [address] Pharmacokinetic/Renal -Consult 02/28/24 0245 MR#: [id number] Acct: [id number] Name: MANSI CARO Rep #:[id number] : 1955 69 From: Bill Charlton od PCP: Dr. Adrienne Byers DO Status:ADM IN Location: [place] [address] Consult Antibiotic Management Pharmacy has been consulted [...] Signature (if applicable): Date CC: ~ Signed [facility] Work Phone: 1(632) 468-186904-07-2024 Progress note Author Shan Lockett [facility] February 27, 2024 2:30pm Note Date/Time February 27, 2024 2:30 pm [facility] Medical Records Department [address] [place] [address] Progress Note - GI 02/27/24 1429 MR#: [id number] Acct: [id number] Name: MANSI CARO Rep #:[id number] : 1955 69 From: Shan Lockett DO PCP: Dr. Adrienne Byers DO Status:ADM IN Location: [place] [address] Subjective Subjective Patient states that her abdominal [...] Neut % (Auto) 69.4, Lymph % (Auto) 22.4,[place] % (Auto) 6.2, Eos % (Auto) 1.5, [...] medication regimen. Charges/Coding Visit Charges Inpatient E&M: 40241 Subs Hosp 02/27/24 1430 <Electronically signed by Shan Lockett DO> Cosigner Signature (if applicable): CC: ~ Signed [facility] Work Phone: 1(540) 664-111104-07-2024 Progress note Author Shan Lockett [facility] February 27, 2024 2:21pm Note Date/Time February 26, 2024 3:33 pm [facility] Medical Records Department [address] [place] [address] Progress Note - GI 02/26/24 1533 MR#: [id number] Acct: [id number] Name: MANSI CARO Rep #:[id number] : 1955 69 From: Shan Friend DO PCP: Dr. Adrienne Byers, DO Status:ADM IN Location: [place] BD347-5 Subjective Subjective She underwent CT scan abdomen [...] Clarity Clear, Urine pH 5.0, Ur Specific [place] 1.020, Urine Protein 15 H, Urine Glucose [...] 77.6 H, Lymph % (Auto) 15.8 L, [place] % (Auto) 5.7, Eos % (Auto) 0.2, [...] on scheduled Bentyl for the cramping. 02/27/24 2374 <Electronically signed by Shan Friend > Cosigner Signature (if applicable): CC: ~ Signed [facility] Work Phone: 1(724) 247-556104-07-2024 Progress note Author Heike Horta [facility] February 27, 2024 11:22am Note Date/Time February 27, 2024 8:46 am [facility] Medical Records Department [address] [place] [address] Progress Note 02/27/24 0839 MR#: [id number] Acct: [id number] Name: MANSI CARO Rep #:[id number] : 1955 69 From: Heike Horta MD PCP: Dr. Adrienne Byers, DO Status:ADM IN Location: [place] HK943-1 Subjective Subjective Patient seen and examined. She [...] Neut % (Auto) 69.4, Lymph % (Auto) 22.4,[place] % (Auto) 6.2, Eos % (Auto) 1.5, [...] awaiting placement Charges/Coding Visit Charges Inpatient E&M: 62744 Subs Hosp L2 02/27/24 1122 <Electronically signed by Heike Horta MD> Heike Horta MD Cosigner Signature (if applicable): CC: ~ Signed [facility] Work Phone: 1(434) 600-200404-06-2024 Progress note Author [facility] February 26, 2024 2:42pm Note Date/Time February 26, 2024 9:13 am [facility] Medical Records Department [address] [place] [address] Progress Note 02/26/24911 MR#: [id number] Acct: [id number] Name: MANSI CARO Rep #:[id number] : 1955 69 From: Heike Horta MD PCP: Dr. Adrienne Byers, DO Status:ADM IN Location: [place] [address] Subjective Subjective Patient seen and examined. was [...] Clarity Clear, Urine pH 5.0, Ur Specific [place] 1.020, Urine Protein 15 H, Urine Glucose [...] 77.6 H, Lymph % (Auto) 15.8 L, [place] % (Auto) 5.7, Eos % (Auto) 0.2, [...] awaiting placement Charges/Coding Visit Charges Inpatient E&M: 77462 [facility] Hosp L3 02/26/24 1442 <Electronically signed by Heike Horta MD> Heike Horta MD Cosigner Signature (if applicable): CC: ~ Signed [facility] Work Phone: 1(389) 446-183904-06-2024 Consult note Author Yoandy Marcial [facility] February 26, 2024 11:30am Note Date/Time February 26, 2024 11:2 6am [facility] Medical Records Department [address] [place] [address] Pharmacokinetic/Renal -Consult 02/26/24 1126 MR#: [id number] Acct: [id number] Name: MANSI CARO Rep #:[id number] : 1955 69 From: Yoandy Marcial PCP: Dr. Adrienne Byers, DO Status:ADM IN Y Location: [place] [address] Consult Antibiotic Management Pharmacy has been consulted [...] signed by Yoandy Marcial> Date _ Yoandy Marcial Cosigner Signature (if applicable): Date CC: ~ Signed [facility] Work Phone: 1(895) 162-935304-05-2024 Progress note Author Shan Friend [facility] February 25, 2024 5:51pm Note Date/Time February 25, 2024 5:51 pm [facility] Medical Records Department [address] [place] [address] Progress Note - GI 02/25/24 1749 MR#: [id number] Acct: [id number] Name: MANSI CARO Rep #:[id number] : 1955 69 From: Shan Friend PCP: Dr. Adrienne Byers, DO Status:ADM IN Location: [place] RQ023-3 Subjective Subjective Patient's appetite is poor and [...] (Auto) 82.7 H, Lymph % (Auto) 10.3 L,[place] % (Auto) 6.3, Eos % (Auto) 0.3, [...] poor appetite. Charges/Coding Visit Charges Inpatient E&M: 77559 Subs Hosp L3 02/25/24 6563 <Electronically signed by Shan Lockett DO> Cosigner Signature (if applicable): CC: ~ Signed [facility] Work Phone: 1(949) 189-386204-05-2024 Progress note Author Heike Horta [facility] February 25, 2024 4:51pm Note Date/Time February 25, 2024 10:4 1am [facility] Medical Records Department [address] [place] [address] Progress Note 02/25/24 1040 MR#: [id number] Acct: [id number] Name: MANSI CARO Rep #:[id number] : 1955 69 From: Heike Horta MD PCP: Dr. Adrienne Byers, DO Status:ADM IN Location: [place] PT378-5 Subjective Subjective Patient seen and examined. was [...] (Auto) 82.7 H, Lymph % (Auto) 10.3 L,[place] % (Auto) 6.3, Eos % (Auto) 0.3, [...] awaiting placement Charges/Coding Visit Charges Inpatient E&M: 14460 [facility] Hosp L3 02/25/24 0089 <Electronically signed by Heike Horta MD> Heike [...] Signature (if applicable): Date cc: ~* Signed [facility] Work Phone: 1(519) 740-387004-04-2024 Progress note Author Shan Friend [facility] February 24, 2024 5:08pm Note Date/Time February 24, 2024 5:07 pm [facility] Medical Records Department [address] [facility] [address] Progress Note - GI 02/24/24 1705 MR#: [id number] Acct: [id number] Name: MANSI CARO Rep #:[id number] : 1955 69 From: Shan Lockett DO PCP: Dr. Adrienne Byers, DO Status:ADM IN Location: [place] [address]1 Subjective Subjective Patient had 1 bowel movement. [...] Neut % (Auto) 54.1, Lymph % (Auto) 37.2,[place] % (Auto) 6.1, Eos % (Auto) 2.2, [...] to add MiraLAX on a daily basis. 02/24/241706 <Electronically signed by Shan Lockett DO> Cosigner Signature (if applicable): CC: ~ Signed ADDENDUM by Shan Lockett DO on 02/24/24 at 1708 Multi Select Codes Visit Charges Visit Charges: 34623 Subs Hosp L3 02/24/241707<Electronically signed by Shan Lockett DO> Cosigner Signature (if applicable): cc: ~* Signed [facility] Work Phone: 1(905) 568-960004-04-2024 Progress note Author Heike Horta [facility] February 24, 2024 3:42pm Note Date/Time February 24, 2024 9:35 am [facility] Medical Records Department [address] [place] [address] Progress Note 02/24/24 0932 MR#: [id number] Acct: [id number] Name: MANSI CARO Rep #:[id number] : 1955 69 From: Heike Horta MD PCP: Dr. Adrienne Byers, Status:ADM IN Location: [place] [address]1 Subjective Subjective Patient seen and examined. She [...] Neut % (Auto) 54.1, Lymph % (Auto) 37.2,[place] % (Auto) 6.1, Eos % (Auto) 2.2, [...] awaiting placement Charges/Coding Visit Charges Inpatient E&M: 98418 Subs Hosp L2 02/24/24 6667 <Electronically signed by Heike Horta MD> Heike Horta MD Cosigner Signature (if applicable): CC: ~ Signed [facility] Work Phone: 1(648) 602-219304-03-2024 Consult note Author Shan Lockett [facility] February 23, 2024 5:03pm Note Date/Time February 21, 2024 5:48 pm [facility] Medical Records Department [address] [place] [address] Consultation - GI 02/21/24 1748 MR#: [id number] Acct: [id number] Name: MANSI CARO Rep #:[id number] : 1955 69 From: Shan Lockett DO PCP: Dr. Adrienne Byers, DO Status:ADM IN Location: [facility] BA786-6 HPI Consult Data Date of Consult: 02/21/24 [...] to worsening lower GI bleeding. [facility] Medical History Anxiety and depression AV node dysfunction Cardiac resynchronization therapy defibrillator (DRYWALL CONTRACTOR-D) in place Cerebral palsy Congestive heart failure [...] (Auto) 88.4 H, Lymph % (Auto) 5.3L, [place] % (Auto) 5.5, Eos % (Auto) 0.0, [...] Clarity Clear, Urine pH 5.0, Ur Specific [place] 1.015, Urine Protein 15 H, Urine Glucose [...] reflux disease. Charges/Coding Visit Charges Inpatient E&M: 17975 SNF Init L2 02/23/24 1703 <Electronically signed by Shan Lockett DO> Cosigner Signature (if applicable): CC: Dr. Ben Johnson, DO; Dr. Adrienne Byers, DO~ Signed [facility] Work Phone: 1(269) 659-696504-03-2024 Progress note Author Shan Lockett [facility] February 23, 2024 4:56pm Note Date/Time February 23, 2024 4:56 pm [facility] Medical Records Department [address] [place] [address] Progress Note - GI 02/23/24 1655 MR#: [id number] Acct: [id number] Name: MANSI CARO Rep #:[id number] : 1955 69 From: Shan Lockett DO PCP: Dr. Adrienne Byers, DO Status:ADM IN Location: [place] XC431-4 Subjective Subjective She underwent colonoscopy yesterday for [...] Neut % (Auto) 58.7, Lymph % (Auto) 34.0,[place] % (Auto) 5.7, Eos % (Auto) 1.2, [...] bowel regimen. Charges/Coding Visit Charges Inpatient E&M: 41700 [facility] Hosp 02/23/24 1656 <Electronically signed by Shan Lockett DO> Cosigner Signature (if applicable): CC: ~ Signed [facility] Work Phone: 1(464) 487-298504-03-2024 Progress note Author Heike Horta [facility] February 23, 2024 3:33pm Note Date/Time February 23, 2024 10:0 1am [facility] Medical Records Department [address] [place] [address] Progress Note 02/23/24 0959 MR#: [id number] Acct: [id number] Name: MANSI CARO Rep #:[id number] : 1955 69 From: Heike Horta MD PCP: Dr. Adrienne Byers DO Status:ADM IN Location: [facility] WA529-9 Subjective Subjective Patient seen and examined. She [...] Neut % (Auto) 58.7, Lymph % (Auto) 34.0,[place] % (Auto) 5.7, Eos % (Auto) 1.2, [...] 24-48 hours. Charges/Coding Visit Charges Inpatient E&M: 29987 Subs Hosp L2 02/23/24 1533 <Electronically signed by Heike Horta MD> Heike Horta MD Cosigner Signature (if applicable): CC: ~ Signed [facility] Work Phone: 1(213) 321-292704-02-2024 Procedure [facility] 02-22-2024 Procedure [facility]04-02-2024 Progress note Author [facility] February 22, 2024 2:23pm Note Date/Time February 22, 2024 2:15 pm [facility] Medical Records Department [address] [place] [address] Progress Note 02/22/24 1414 MR#: [id number] Acct: [id number] Name: MANSI CARO Rep #:[id number] : 1955 69 From: Heike Horta MD PCP: Dr. Adrienne Byers, DO Status:ADM IN Location: [place] [address]1 Subjective Subjective Patient seen and examined. Her [...] 02/21/24 02/22/24 23:59 23:59 23:59 Intake Total 111 / 1112 1793.77 / 1793.77 Balance 1111 / 1111 1793.77 / 1793.77 Lab / Micro [...] (Auto) 88.4 H, Lymph % (Auto) 5.3L, [place] % (Auto) 5.5, Eos % (Auto) 0.0, [...] Clarity Clear, Urine pH 5.0, Ur Specific [place] 1.015, Urine Protein 15 H, Urine Glucose [...] 76.2 H, Lymph % (Auto) 16.1 L, [place] % (Auto) 6.9, Eos % (Auto) 0.1, [...] prophylaxis: SCDs. Charges/Coding Visit Charges Inpatient E&M: 75566 [facility] Hosp 02/22/24 1423 <Electronically signed by Heike Horta MD> Heike Horta MD Cosigner Signature (if applicable): CC: ~ Signed [facility] Work Phone: 1(275) 620-214604-02-2024 Discharge summary Author Jose Jaime [facility] February 21, 2024 11:34pm Note Date/Time February 21, 2024 2:31 pm [facility] Medical Records Department [address] [place] [address] Emergency Department Summary 02/21/24 MR#: [id number] Acct: [id number] Name: MANSI CARO Rep #:[id number] : 1955 69 From: Jose Liu PCP: Dr. Adrienne Byers, DO Status:ADM IN [facility] H[facility] HPI - GI History of Present [...] some subjective chills but denies any fevers. [facility] Medical History Anxiety and depression AV node dysfunction Cardiac resynchronization therapy defibrillator (DRYWALL CONTRACTOR-D) in place Cerebral palsy Congestive heart failure [...] 88.4 H Lymph % (Auto) 5.3 L [place] % (Auto) 5.5 Eos % (Auto) 0.0 [...] Color Urine Clarity Urine pH Ur Specific [place] Urine Protein Urine Glucose (UA) Urine Ketones Urine Occult Blood Urine Nitrite Urine Bilirubin Urine Urobilinogen Ur Leukocyte Esterase Urine RBC Urine WBC Ur Squamous Epith Cells Urine Bacteria Urine Mucus 02/21/24 17:02 WBC RBC Hgb Hct MCV MCH MCHC RDW Std Deviation RDW Coeff of Edita Plt Count MPV Immature Gran % (Auto) Neut % (Auto) Lymph % (Auto) [place] % (Auto) Eos % (Auto) Baso % [...] Clarity Clear Urine pH 5.0 Ur Specific [place] 1.015 Urine Protein 15 H Urine Glucose [...] Provider] - Disposition Disposition: Acute Care Hospital [facility] What to do if you have Problems For any increased pain, shortness of breath, bleeding, nausea or vomiting, chestpain, or any unexpected problems, contact your Primary Care Provider. Call [facility] ([phone]) or report to the closest Emergency Room. Call 911 if necessary. 02/21/242333 <Electronically signed by Jose Jaime DO> Cosigner Signature (if applicable): CC: Dr. Adrienne Byers DO ~ Signed [facility] Work Phone: 1(311) 934-923104-01-2024 History and physical note Author Ben Johnson [facility] February 21, 2024 9:35pm Note Date/Time February 21, 2024 9:35 pm [facility] Medical Records Department [address] [place] [address] H&P Exam - Hospitalist 02/21/242124 MR#: [id number] Acct: [id number] Name: MANSI CARO Rep #:[id number] : 1955 69 From: Ben Johnson DO PCP: Dr. Adrienne Byers DO Status:ADM IN Location: [facility] RC893-7 HPI - General General Date of Admission: 02/21/24 Date of Service: 02/21/24 Chief Complaint: Abdominal pain, bright red blood in stool HPI Narrative MANSI CARO, is a 69 F who presents to the emergency room at [facility] for evaluation of right red rectal [...] neoplastic component. Patient will be admitted to [place] [address], she will be placed on IV antibiotics, shewill be seen by gastroenterology, she may need endoscopic procedures. Labs willbe monitored. [facility] Medical History Anxiety and depression AV node dysfunction Cardiac resynchronization therapy defibrillator (DRYWALL CONTRACTOR-D) in place Cerebral palsy Congestive heart failure [...] (Auto) 88.4 H, Lymph % (Auto) 5.3L, [place] % (Auto) 5.5, Eos % (Auto) 0.0, [...] Clarity Clear, Urine pH 5.0, Ur Specific [place] 1.015, Urine Protein 15 H, Urine Glucose [...] 18:54 EDT Reading Location ID and State: [facility] / [place] Tel , Service support , Assessment & Plan Assessment/Plan (1) Gastrointestinal bleeding, lower: PLAN: Plan 1. Colitis-etiology unclear, patient will be admitted to [facility] 3, she was placed on IV [...] 75 minutes Charges/Coding Visit Charges Inpatient E&M: 04696 Init Hosp L3 02/21/242134 <Electronically signed by Ben Johnson DO> Cosigner Signature (if applicable): CC: Dr. Ben Johnson, ; Dr. Adrienne Byers DO~ Signed [facility] Work Phone: 1(901) 215-829702-05-2024 Note ORIGINAL EXAMINATION: BONE DENSITOMETRY 12/27/2023 2:34 [...] Date: 12/27/2023 3:14:57 PM [facility] Discharge summary Author Uday Orosco [facility] December 08, 2023 6:11pm Note Date/Time December 08, 2023 4 :37pm [facility] Medical Records Department [address] [place] [address] Emergency Department Summary 12/08/23 MR#: [id number] Acct: [id number] Name: MANSI CARO Rep #:[id number] : [...] She has not been at her baseline. [facility] Medical History Anxiety and depression AV node dysfunction Cardiac resynchronization therapy defibrillator (DRYWALL CONTRACTOR-D) in place Cerebral palsy Congestive heart failure [...] Disposition Disposition: Home, Self Care Capacity [employer] Reflex Medical hold order details:: IF a medical hold is selected below, a suggested order for a MEDICAL HOLD will reflex upon signing the document. Next of kin: [place] law dictates a PRIORITY LIST for identifying [...] your Primary Care Provider. Call [facility] ([phone]) or report to the closest Emergency Room. Call 911 if necessary. 12/08/231810 <Electronically signed by Uday Orosco DO> Cosigner Signature (if applicable): CC: Dr. Adrienne Byers DO ~ Signed [facility] Work Phone: 1(898) 561-801011-29-2023 History of Present illness Narrative* Sherif Ramirez MD - 10/20/2023 3:30 PM EST [facility] - FOLLOW UP EVALUATION Jesus Manuel Freitas DO, DO [address] [facility] [address] Dear Jesus Manuel Freitas DO DO: I [...] her . We had a visit using: [employer] I have communicated my name and active licensure. The patient's identity and physical location wereverified at the time of this visit. Either the patient or their legal paper sales representative has been informed of the risks [...] Flowsheet Row Appointment from 10/20/2023 in Neurological [facility] Office Visit from 05/12/2023 in Rehab Medicine [...] Associate Staff Movement [facility] Discharge summary Author Camacho Aguilar [facility] October 12, 2023 11:27am Note Date/Time October 12, 2023 11:25am [facility] Medical Records Department [address] [place] [address] Instructions for Home/Discharge Instructions 10/12/23 1124 MR#: [id number] Acct: [id number] Name: MANSI CARO Rep #:[id number] : 1955 68 From: Camacho renner MD PCP: Dr. Adrienne Byers DO Status:ADM [place] Discharge Instructions Diet Discharge [...] MD; Dr. Tony Mayer MD; Dr. Adrienne Byers, DO ~ Signed [facility] Work Phone: 1(960) 458-594911-20-2023 Progress note Author Camacho Aguilar [facility] October 11, 2023 10:04am Note Date/Time October 11, 2023 10:04am [facility] Medical Records Department [address] [place] [address] Progress Note - Hospitalist 10/11/23 1001 MR#: [id number] Acct: [id number] Name: MANSI CARO Rep #:[id number] : 1955 68 From: Camacho renner MD PCP: Dr. Adrienne Byers, Status:ADM [place]GELIA Location: [place] [address] Subjective Subjective Doing well, no issues overnight. [...] 33.5 L, Lymph % (Auto) 54.9 H, [place] % (Auto) 8.3, Eos % (Auto) 2.5, [...] DVT: Lovenox Charges/Coding Visit Charges Inpatient E&M: 03778 Subs Hosp L2 10/11/23 1004 <Electronically signed by Camacho Aguilar MD> Cosigner Signature (if applicable): CC: ~ Signed [facility] Work Phone: 1(334) 276-752611-19-2023 Progress note Author Tony Mayer [facility] October 10, 2023 10:13am Note Date/Time October 10, 2023 7:57am [facility] Medical Records Department [address] [place] [address] Progress Note - Hospitalist 10/10/23 0754 MR#: [id number] Acct: [id number] Name: MANSI CARO Rep #:[id number] : 1955 68 From: Tony Mayer MD PCP: Dr. Adrienne Byers, DO Status:ADM ANGELIA Location: [place] [address] Reason for Visit Reason for Visit: Diagnoses [...] 35 Minutes Charges/Coding Visit Charges Inpatient E&M: 28980 Subs Hosp L2 10/10/23 1013 <Electronically signed by Tony Mayer MD> Cosigner Signature (if applicable): CC: ~ Signed [facility] Work Phone: 1(216) 658-340811-18-2023 Progress note Author Tony Mayer [facility] October 09, 2023 9:43am Note Date/Time October 09, 2023 9:15am [facility] Medical Records Department [address] [place] [address] Progress Note - Hospitalist 10/09/23911 MR#: [id number] Acct: [id number] Name: MANSI CARO Rep #:[id number] : 1955 68 From: Tony Mayer MD PCP: Dr. Adrienne Byers, DO Status:ADM ANGELIA Location: [place] [address] Reason for Visit Reason for Visit: Diagnoses [...] 35 Minutes Charges/Coding Visit Charges Inpatient E&M: 10678 Subs Hosp L2 10/09/23 0943 <Electronically signed by Tony Mayer MD> Cosigner Signature (if applicable): CC: ~ Signed [facility] Work Phone: 1(136) 932-771611-17-2023 Progress note Author Tony Mayer [facility] October 08, 2023 12:45pm Note Date/Time October 08, 2023 8:45am [facility] Medical Records Department [address] [place] [address] Progress Note - Hospitalist 10/08/23 0844 MR#: [id number] Acct: [id number] Name: MANSI CARO Rep #:[id number] : 1955 68 From: Tony Mayer MD PCP: Dr. Adrienne Byers, DO Status:ADM ANGELIA Location: [place] [address] Reason for Visit Reason for Visit: Diagnoses [...] (Auto) 41.7 L, Lymph % (Auto) 47.6 H,[place] % (Auto) 9.0, Eos % (Auto) 0.9, [...] 41.9 L, Lymph % (Auto) 45.5 H, [place] % (Auto) 9.3, Eos % (Auto) 2.5, [...] 14:14 EST Reading Location ID and State: [facility] / [place] , Service support , Head/Neck CTA 10/07/23 [...] 13:10 EST Reading Location ID and State: [address] [place] [address] , Service support , ADDENDUM: 10/07/23 1317 [...] 50 Minutes Charges/Coding Visit Charges Inpatient E&M: 40226 [facility] Hosp 10/08/23 1245 <Electronically signed by Tony Mayer MD> Cosigner Signature (if applicable): CC: ~ Signed [facility] Work Phone: 1(872) 896-535911-16-2023 Discharge summary Author David Best [facility] October 07, 2023 4:57pm Note Date/Time October 07, 2023 1:03pm [facility] Medical Records Department [address] [place] [address] [place] [address] Emergency Department Summary 10/07/23 MR#: [id number] Acct: [id number] Name: MANSI CARO Rep #:[id number] : 1955 68 From: David Weller PCP: Dr. Adrienne Byers, Status:ADM ANGELIA Location: [place] [address] HPI History of Present Illness Chief Complaint: Stroke Alert Informant: patient, spouse/S.O. and SNF Narrative Narrative: Brought down from TCU initially seen [facility] as a stroke alert starting 15 minutes prior to arrival at 12:15 PM. Patient reports right-sided weakness. History of stroke in the past. She was recently seen this past Wednesday for stroke work- up with similar presentation. Initial evaluation in [facility] had right arm drift, right leg drift [...] AV node dysfunction Cardiac resynchronization therapy defibrillator (DRYWALL CONTRACTOR-D) in place Cerebral palsy Congestive heart failure [...] neurologist, hospitalist This note was generated with VeraLight dictation software. It may contain incorrectwords, spelling, [...] 41.7 L Lymph % (Auto) 47.6 H [place] % (Auto) 9.0 Eos % (Auto) 0.9 [...] (excluding procedures): 30-74 minutes, Discussing w/Patient &/or Family/[place], Discussing w/Consultants, Arranging Admission or Transfer, Performing Direct Patient Care at Bedside and - (30 minutes) Discharge Plan Dx/Rx/DC Orders Clinical Impression: Transient ischemic attack, Ischemic cardiomyopathy, PFO (patent foramen ovale) Disposition Disposition: Acute Care Hospital [facility] Discharge Date/Time: 10/07/23 15:06 What to do if you have Problems For any increased pain, shortness of breath, bleeding, nausea or vomiting, chestpain, or any unexpected problems, contact your Primary Care Provider. Call [facility] ([phone]) or report to the closest Emergency Room. Call 911 if necessary. 10/07/23 165 <Electronically signed by David Weller> Cosigner Signature (if applicable): CC: Dr. Adrienne Byers DO ~ Signed [facility] Work Phone: 1(506) 514-176611-16-2023 History and physical note Author Jaci Greco [facility] October 07, 2023 2:38pm Note Date/Time October 07, 2023 1:59pm [facility] Medical Records Department [address] [place] [address] H&P Exam - Hospitalist 10/07/23 1355 MR#: [id number] Acct: [id number] Name: MANSI CARO Rep #:[id number] : [...] and Plavix who now re-presents to the [facility] ED on 10/07/23 with history of [...] baclofen 10 mg p.o. x1. [facility] Medical History (Updated 10/07/23 @ 14:[address] Jaci Greco MD) Anxiety and depression AV node dysfunction Cardiac resynchronization therapy defibrillator (DRYWALL CONTRACTOR-D) in place Cerebral palsy Coronary artery disease [...] PO MOWEFR FLUID 10/07/23 [History Last Taken 11/15/23] Allergy/AdvReac Type Severity Reaction Status Date / [...] (Auto) 41.7 L, Lymph % (Auto) 47.6 H,[place] % (Auto) 9.0, Eos % (Auto) 0.9, [...] and Plavix who now re-presents to the [facility] ED on 10/07/23 with history of [...] 16 minutes. Charges/Coding Visit Charges Inpatient E&M: 08027 Init Hosp L3 Procedures Hospitalists Procedures: 12396 Advncd Care Plan 30 Min 10/07/23 1438 <Electronically signed by Jaci Greco MD> Cosigner Signature (if applicable): CC: Dr. Jaci Greco MD; Dr. Adrienne Byers, DO~ Signed [facility] Work Phone: 1(408) 121-241111-12-2023 Progress note Author Alonso [facility] October 03, 2023 1:49pm Note Date/Time October 03, 2023 10:38am [facility] Medical Records Department [address] [place] [address] Progress Note - Pharmacy 10/03/23 1035 MR#: [id number] Acct: [id number] Name: MANSI CARO Rep #:[id number] : 1955 68 From: Talat Cameron PCP: Dr. Adrienne Byers, Status:ADM IN Location: TCU [facility] Documented by User: Talat Cameron 10/03/23 11:16 [...] 25 Mg Tablet PO MOWEFR [facility] Tolterodine Tartrate 2 mg 10/01/23 [...] by Alonso Marte MD> CC: ~ Signed [facility] Work Phone: 1(159) 572-760511-10-2023 History and physical note Author Alonso Marte [facility] October 01, 2023 4:18pm Note Date/Time October 01, 2023 4:07pm [facility] Medical Records Department [address] [place] [address] History & Physical Exam 10/01/23 1558 MR#: [id number] Acct: [id number] Name: MANSI CARO Rep #:[id number] : 1955 68 From: Alonso Marte MD PCP: Dr. Adrienne Byers, DO Status:ADM IN Location: [place] [address] HPI - General General Date of Admission: 10/01/23 Date of Service: 10/01/23 Chief Complaint: Here for rehabilitation. HPI Narrative 09/28/2023 MANSI CARO, is a 68 Female who presents to [facility] Emergency Department with neurologic signs/symptoms. Presents [...] to discharge home with . [facility] Medical History (Updated 10/01/23 @ 16:[address] 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 * Diabetes Mellitus [...] Byers DO; Dr. Alonso Marte MD~ Signed [facility] Work Phone: 1(888) 447-695311-10-2023 Discharge summary Author Ben Johnson [facility] October 01, 2023 11:57am Note Date/Time October 01, 2023 11:57am [facility] Medical Records Department [address] [place] [address] Transfer to [facility] MR#: [id number] Acct: [id number] Name: MANSI CARO Rep #:[id number] : 1955 68 From: Ben Johnson DO PCP: Dr. Adrienne Byers DO Status:ADM IN Certification of patient admission REQUIRED AT TIME OF ADMISSION. 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 Hx of word finding difficulty after [...] patient reports may be inpatient rehab at [facility]. Discharge Plan Admission Admit Date/Time: 09/28/23 [...] water retention) Patient Comments: TAKING NEEDED vitamin B09-skvih acid 1 tab PO DAILY pantoprazole 40 [...] Corona DO; Dr. Adrienne Byers DO ~ [facility] Work Phone: 1(372) 886-787911-09-2023 Progress note Author Ben Johnson [facility] September 30, 2023 5:30pm Note Date/Time September 30, 2023 5 :30pm [facility] Medical Records Department [address] [place] [address] Progress Note - Hospitalist 09/30/23 1726 MR#: [id number] Acct: [id number] Name: MANSI CARO Rep #:[id number] : 1955 68 From: Ben Johnson DO PCP: Dr. Adrienne Byers, DO Status:ADM IN Location: [place] [address] Reason for Visit Reason for Visit: Diagnoses [...] 09/29/23 14:29 AG (Rec: 09/29/23 14:29 AG [id number]) Nutrition Malnutrition Evidence of Malnutrition Exists Yes [...] times a day will be given with BoxC Total clinical time spent by myself addressing patient's medical issues, reviewing all of her data, and collaborating with patient's care team: 35-minutes Charges/Coding Visit Charges Inpatient E&M: 69656 Subs Hosp L2 09/30/23 1730 <Electronically signed by Ben Johnson DO> Cosigner Signature (if applicable): CC: ~ Signed [facility] Work Phone: 1(595) 521-998411-09-2023 Discharge summary Author Ben Johnson [facility] September 30, 2023 11:55am Note Date/Time September 30, 2023 1 1:52am [facility] Medical Records Department [address] [place] [address] Instructions for Home/Discharge Instructions 09/30/23 1151 MR#: [id number] Acct: [id number] Name: MANSI CARO Rep #:[id number] : 1955 68 From: Ben Johnson DO PCP: Dr. Adrienne Byers, DO Status:ADM IN Discharge Instructions Diet Discharge [...] water retention) Patient Comments: TAKING NEEDED vitamin V10-nbbwc acid 1 tab PO DAILY pantoprazole 40 [...] DO; Dr. Adrienne Byers DO ~ Signed [facility] Work Phone: 1(726) 119-432011-08-2023 Progress note Author Ben [facility] September 29, 2023 5:39pm Note Date/Time September 29, 2023 5 :25pm [facility] Medical Records Department [address] [place] [address] Progress Note - Hospitalist 09/29/237 MR#: [id number] Acct: [id number] Name: MANSI CARO Rep #:[id number] : 1955 68 From: Ben Johnson DO PCP: Dr. Adrienne Byers DO Status:ADM IN Location: [place] [address] 1 Reason for Visit Reason for Visit: [...] Document 09/29/23 14:29 AG (Rec: 09/29/23 14:29 [id number]) Nutrition Malnutrition Evidence of Malnutrition Exists Yes [...] (Auto) 40.8 L, Lymph % (Auto) 49.7 H,[place] % (Auto) 7.6, Eos % (Auto) 1.0, [...] Clarity Clear, Urine pH 8.0, Ur Specific [place] 1.010, Urine Protein Negative, Urine Glucose (UA) [...] Physician: Adrienne Hatfield Performed By: Florina Baig, CAMILLECS, RVT Physical Exam Const alert, oriented x3, [...] team: 35-minute Charges/Coding Visit Charges Inpatient E&M: 80923 Subs Hosp L2 09/29/23 0469 <Electronically signed by Ben Johnson DO> Cosigner Signature (if applicable): CC: ~ Signed [facility] Work Phone: 1(316) 752-468811-08-2023 History and physical note Author Tony Mejia [facility] September 29, 2023 7:10am Note Date/Time September 28, 2023 1 0:22pm [facility] Medical Records Department [address] [place] [address] H&P Exam - Hospitalist 09/28/230 MR#: [id number] Acct: [id number] Name: MANSI CARO Rep #:[id number] : 1955 68 From: Tony Williamson DO PCP: Dr. Adrienne Byers, Status:ADM IN Location: [place] [address] HPI - General General Date of Admission: [...] place, depression and osteoarthritis who presents to [facility] ER complaining of strokelike symptoms with [...] that was negative for Parkinson's disease at [place], where she normally receives her care. She denies fever, chills, nausea, vomiting, diarrhea or constipation. Stroke alert was called in the ER with patient outside the window for tPA and already improving clinically with suspicion for a possible CVA due to her PFO and she was then admitted to the [facility] ongoing care for a stay that is expected to be greater than 48 hours. [facility] Medical History Anxiety Cardiac resynchronization therapy defibrillator (DRYWALL CONTRACTOR-D) in place Congestive heart failure (CHF) Coronary [...] EDEMA 09/28/23 [History Last Taken Unknown] vitamin X31-wuwqq acid 1 tab PO DAILY vitamin 09/28/23 [...] place andoriented to time Coordination / Balance: ycoawj-de-zbmg test normal and ywwu-yc-bnll test normal Speech: speech normal Motor Exam: [...] (Auto) 40.8 L, Lymph % (Auto) 49.7 H,[place] % (Auto) 7.6, Eos % (Auto) 1.0, [...] Clarity Clear, Urine pH 8.0, Ur Specific M[place] 1.010, Urine Protein Negative, Urine Glucose (UA) [...] 55 minutes. Charges/Coding Visit Charges Inpatient E&M: 91018 Init Hosp L2 09/29/23 0710 <Electronically signed by Tony Corona DO> Cosigner Signature (if applicable): CC: Dr. Tony Corona DO; Dr. Adrienne Byers DO~ Signed [facility] Work Phone: 1(717) 725-751711-08-2023 Discharge summary Author Uday Orosco [facility] September 28, 2023 10:10pm Note Date/Time September 28, 2023 8 :55pm [facility] Medical Records Department [address] [place] [address] Emergency Department Summary 09/28/23 MR#: [id number] Acct: [id number] Name: MANSI CARO Rep #:[id number] : 1955 68 From: Uday Orosco DO PCP: Dr. Adrienne Byers DO Status:ADM IN Location: [address] History of Present Illness Chief Complaint: [...] spastic right lowerextremity. Patient is on Plavix. [facility] Medical History Cardiac resynchronization therapy defibrillator (DRYWALL CONTRACTOR-D) in place Diabetes mellitus Hyperlipidemia Hypertension Myocarditis PFO (patent foramen ovale) Home Medications amlodipine 5 mg-olmesartan 20 mg tablet (Joaqíun) 0.5 udtab PO QODAY 11/18/14 [History Last [...] EDEMA 09/28/23 [History Last Taken Unknown] vitamin Y91-nuncq acid PO 09/28/23 [History Last Taken Unknown] [...] 40.8 L Lymph % (Auto) 49.7 H [place] % (Auto) 7.6 Eos % (Auto) 1.0 [...] Clarity Clear Urine pH 8.0 Ur Specific Moline 1.010 Urine Protein Negative Urine Glucose (UA) [...] your Primary Care Provider. Call [facility] ([phone]) or report to the closest Emergency Room. Call 911 if necessary. 09/28/232209 <Electronically signed by Uday Orosco DO> Cosigner Signature (if applicable): CC: Dr. Adrienne Byers DO ~ Signed [facility] Work Phone: 1([phone]) 200-444111-07-2023 Discharge summary Author Uday Orosco [facility] September 28, 2023 10:10pm Note Date/Time September 28, 2023 8 :55pm [facility] Medical Records Department [address] [place] [address] Emergency Department Summary 09/28/23 MR#: [id number] Acct: [id number] Name: MANSI CARO Rep #:[id number] : 1955 68 From: Uday Orosco DO PCP: Dr. Adrienne Byers DO Status:ADM IN Location: [place] [address] HPI History of Present Illness Chief Complaint: [...] spastic right lowerextremity. Patient is on Plavix. [facility] Medical History Cardiac resynchronization therapy defibrillator (DRYWALL CONTRACTOR-D) in place Diabetes mellitus Hyperlipidemia Hypertension Myocarditis [...] EDEMA 09/28/23 [History Last Taken Unknown] vitamin N34-rinma acid PO 09/28/23 [History Last Taken Unknown] [...] 40.8 L Lymph % (Auto) 49.7 H [place] % (Auto) 7.6 Eos % (Auto) 1.0 [...] Clarity Clear Urine pH 8.0 Ur Specific M[place] 1.010 Urine Protein Negative Urine Glucose (UA) [...] your Primary Care Provider. Call [facility] ([phone]) or report to the closest Emergency Room. Call 911 if necessary. 09/28/232209 <Electronically signed by Uday Orosco DO> Cosigner Signature (if applicable): CC: Dr. Adrienne Byers DO ~ Signed [facility] Work Phone: 1(701) 958-182210-31-2023 History of Present illness Narrative* Nirmal Carpio, [...] 1010 PATIENT DISCHARGED TO: Ambulatory patient, left OR department area. A Diagnostic radioactive procedure has taken place, with no further precautions necessary other than routine body substance precautions. More information regarding radiation safety can be found usingLevel [employer] link: [email or web address]/Rad%20Protection%20-% 20Diagnostic%20Nuclear%20Medicine%20Procedures.pdf SIGNATURE: RT [place]) PATIENT NAME: Mansi Caro DATE: September 21, 2023 TIME: 10:00 AM PAGER/CONTACT #[facility]23 Note ORIGINAL EXAMINATION: CT OF THE [...] Sign Date: 09/07/2023 10:17:27 AM Ordering Provider: [facility]10-08-2023 Note . MICRO - Microbiology PROCEDURE: [...] Locations *1: This test was performed at: [facility], [address] [place] [address], [facility] , [facility] ([place])08-04-2023 Hospital Discharge instructions Patient Education 08/04/2023 12:31:44 [...] animal will probably be confined with its regional owner operator truck driver for 10 days. If the animal does [...] bats may notbe noticed, especially by children. 8115-4650 [employer]. [address] [place] [address], [place] [address]. All rights reserved. This information is not intended as a substitute for professional medical care. Always follow yourhealthcare professional's instructions. 08/04/2023 12:31:41 9- AO ED Rabies Follow-up Vaccination [facility] Rabies Follow-Up Vaccination Information Sheet SUMMARY After [...] your follow-up rabies vaccinations. OR Call the [facility] at to schedule your follow-up vaccination appointments. Hours: 8a-4:30p, Wednesday through Wednesday OR Call [facility] to schedule your follow-up vaccination appointments. Follow Up Care 08/04/2023 11:57:19 With:ADRIENNE BYERS Address: [address] [facility] [place] [address]- [phone] Business (1) When:2-4 days [facility] 09-13-2023 Emergency department Discharge summary Discharge Instructions Thank you for allowing [place] to assist you with your healthcare needs. The following is importantdischarge information regarding your hospital visit. Diagnosis from Today's Visit Bat exposure What to Do Next Instructions from Your Care Team No qualifying data available. Post Acute Orders No qualifying data available. You Need to Schedule the Following Appointments Follow Up with ADRIENNE BYERS When Within 2-4 days Where: [address] [facility] [place] [address]- [phone] Business (1) Allergies NKA Immunizations This Visit [...] animal will probably be confined with its regional owner operator truck driver for 10 days. If the animal does [...] bats may notbe noticed, especially by children. 5455-3975 [employer]. [address] [place] [address]. All rights reserved. This information is not intended as a substitute for professional medical care. Always follow yourhealthcare professional's instructions. [facility] Rabies Follow-Up Vaccination Information Sheet SUMMARY After [...] follow-up rabies vaccinations. OR Call the [facility] at to schedule your follow-up vaccination appointments. Hours: 8a-4:30p, Wednesday through Wednesday OR Call [facility] to schedule your follow-up vaccination appointments. Additional Information VACCINATE! IT SAVES LIVES! Members of the community who have not yet received the COVID-19 vaccine and would like to receive it can visit one of [facility] vaccine clinics. There are many vaccine clinic locations within the [facility]. For locations and available times, please visit www.[email or web address].[place].gov/. It is important to note that some COVID mobile vaccine clinics are held outdoors and may be canceled in rainy or stormy conditions. To learn more about pediatric vaccinations (ages 5-11), we invite you to visit the [facility] webpage. https://www.[facility].org/pages/6040-Nbtxk-Fgjqnzydpcc-Ueglvcebqb-Gebji-Cop stions.htmlTo learn more about the COVID-19 vaccine, we invite you to visit the CDC website for a list of frequently asked questions. https://www.cdc.gov/coronavirus/2019-ncov/vaccines/faq.html [facility] Patient Portal Access Instructions: Stay connected with your healthcare team and access your personal medical information anytime with the [facility] Patient Portal. If you would like a full copy of your medical records please contact the [facility] Medical Records Department Wednesday through Wednesday between 8a.m. and 4:30p.m. Please follow the directions below to access the portal: 1.Access the email account you provided upon registration to the [facility].2.Look for an invitation email from [facility].3.Open the email and access the invitation link: Accept Invitation to [facility].Fill in the required tirado to create your account. Sign into www.[email or web address] with your username and password that [...] you will allow to register on the [facility] Patient Portal for access to your information. You can also access the [facility] Patient Portal on the [employer]. Simply click on Health Records under Recensus and then click on the Above [employer] logo. HOW TO SAFELY DISPOSE OF PRESCRIPTION [...] Call your local pharmacy or go to http://bit.MagMe/0U4Fj4m to find one close to you.3.Make use of household items: Use cat litter or old coffee grounds to dispose medications if other options arenot available. Mix your drugs with these household products, seal them in an airtight container andthrow it into the garbage. Call [facility]: [phone] to be sure your drugs can be [...] aware that I should contact my doctor. 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 Caro for follow-up today. As you know she is a 68 year old right-handed female with a history of left hand tremor since 2021. She is seen alone. We had a visit using: [employer] I have communicated my name and active licensure. The patient's identity and physical location wereverified at the time of this visit. Either the patient or their legal paper sales representative has been informed of the risks and benefits of -- and alternatives to -- treatment through a remote evaluation andconsents to proceed with the evaluation remotely. I have communicated my name and active licensure. The patient's identity and physical location wereverified at the time of this visit. Either the patient or their legal paper sales representative has been informed of the risks [...] Office Visit from 05/12/2023 in Rehab Medicine [facility] from 10/12/2022 in Neurological Shinto [facility] T Score 32.4 39.8 [...] allergic reaction and is willing to rechallenge HEREV MARIN Current Outpatient Medications Medication Sig baclofen [...] Associate Staff Movement disorders [facility] documented in this encounterBerger Hospital07-19-2023 Note* Exam Date Time Procedure Performing Provider Status 06/09/23 12:53 PM Echocardiogram, Adult (AOH) Auth (Verified) [facility] 06-26-2023 Miscellaneous Notes* Telephone Encounter - Cheri Castillo RN - 05/17/2023 3:27 PM EDT This was approved Called left message on identified VM of Beatrice that this was approved and to check with [facility] pharmacy Called [facility] pharmacy, talked with Orquidea and iman Cespedes [...] medication on Wed., 05/19/23 documented in this encounterBerger Hospital06-26-2023 Miscellaneous Notes* Telephone Encounter - Cheri Castillo RN - 05/17/2023 11:16 AM EDT Images from the original note were not included. * Telephone Encounter - Janee Argueta RN - 05/14/2023 10:48 AM EDT A PA has been submitted via [employer] Name:[employer] Phone Number: Patient ID number: [id number] Medication: Baclofen Dosage: 5mg Iros:[id number] PA Janee Argueta RN documented in this encounterBerger Hospital06-23-2023 Miscellaneous Notes* Telephone Encounter - Janee Argueta RN - 05/14/2023 11:17 AM EDT PA submitted via [employer]. Janee Argueta RN * Telephone Encounter - Ghazala Gusman MD - 05/14/2023 8:56 AM EDT I'll forward to Janee for PA * Telephone Encounter - Humaira Wetzel - 05/13/2023 4:43 PM EDT [facility] Pharmacy was called and the pharmacist [...] and advise. Humaira Wetzel documented in this encounterBerger Hospital06-21-2023 History of Present illness Narrative* Ghazala [...] noted at rest but better with activity. DRYWALL CONTRACTOR D placed on 05/12/22. Ongoing issues: Feeling [...] which included preparing to see the patient, pjer-dg-vjkp patient care, completing clinical documentation, performing a medically appropriate examination, counseling and educating the patient/family/caregiver, and ordering medications, tests,or procedures. documented in this encounterBerger Hospital06-21-2023 Nurse Note* Janee Argueta RN - 05/12/2023 1:24 PM EDT Patient presents for spasticity on right side The following tests/records were reviewed:no Do you need any refills today from the doctor?yes Janee Argueta RN documented in this encounterBerger Hospital12-15-2022 Miscellaneous Notes* Telephone Encounter - Jelly Gomez RN - 11/05/2022 4:26 PM EST Called and spoke with Song, Mrs. aCro's , and went over Dr. Gusman's message [...] wait until she returns. documented in this encounterBerger Hospital11-21-2022 History of Present illness Narrative* Sherif Ramirez MD - 10/12/2022 1:45 PM EST [facility] - FOLLOW UP EVALUATION Jesus Manuel Freitas, DO, DO [address] [facility] [address] Freitas, I had the pleasure of seeing Ms. Caro for follow-up today. As you know she is a 67 year old right-handed female with a history of left hand tremor since 2021. She is seen alone. We had a visit using: [employer] I received consent from the patient to [...] Flowsheet Row Appointment from 10/12/2022 in Neurological Shinto [facility] from 08/10/2022 in Neurological Shinto Global Physical Health T Score 39.8 37.4 [...] Jose MARIN Current Outpatient Medications Medication Sig carbidopa-levodopa [...] research? Not currently Level of service : 60573 (10-19 min). Time spent 15 min on the day of service, which included preparing to see the patient, fqwm-ny-zucl patient care, completing clinical documentation, obtaining and/or [...] Associate Staff Movement disorders Center of Neurological [facility] documented in this encounterBerger Hospital09-29-2022 Hospital Discharge instructions Patient Education 08/19/2022 [...] swelling in the outer vaginal area (labia) 3789-6024 [employer]. [address] [place] [address]. All rights reserved. This information is not [...] about: All medicines you take, including prescription, izri-ztp-wgcqpak, herbs, and supplements Any other symptoms you [...] Chest, arm, neck, back, or jaw pain 9695-9788 [employer]. [address] [place] [address]. All rights reserved. This information is not intended as a substitute for professional medical care. Always follow yourhealthcare professional's instructions. Follow Up Care 08/19/2022 14:59:40 With:LARY WHEAT DO Address: [address] [place] [phone] When:2-4 days [facility] 09-29-2022 Emergency department Discharge summary Discharge Instructions Thank you for allowing [facility] to assist you with your healthcare needs. The following is importantdischarge information regarding your hospital visit. Diagnosis from Today's Visit Generalized weakness Fatigue What to Do Next Instructions from Your Care Team No qualifying data available. Post Acute Orders No qualifying data available. You Need to Schedule the Following Appointments Follow Up with LARY WHEAT DO When Within 2-4 days Where: [address] [place] [phone] Allergies NKA Medications Please ask your primary [...] swelling in the outer vaginal area (labia) 5130-0923 [employer]. [address] [place] [address], [place] [address]. All rights reserved. This information is not intended as a substitute for professional medical care. Always follow yourhealthcare professional's instructions. Dizziness (Uncertain Cause) Dizziness is a common symptom. It may be described as lightheadedness, spinning, or feeling like you are going to faint. Dizziness can have many causes. Be sure to tell the healthcare provider about: All medicines you take, including prescription, nfwa-vjh-oztrbcy, herbs, and supplements Any other symptoms you [...] Chest, arm, neck, back, or jaw pain 9210-3652 [employer]. [address] [facility], [place] [address]. All rights reserved. This information is not intended as a substitute for professional medical care. Always follow yourhealthcare professional's instructions. Additional Information VACCINATE! IT SAVES LIVES! Members of the community who have not yet received the COVID-19 vaccine and would like to receive it can visit one of [facility] vaccine clinics. There are many vaccine clinic locations within the [facility]. For locations and available times, please visit [email or web address]. It is important to note that some COVID mobile vaccine clinics are held outdoors and may be canceled in rainy orstormy conditions. To learn more about pediatric vaccinations (ages 5-11), we invite you to visit the [facility] webpage. https://www.akronDe[facility] [employer] Citys.org/pages/6245-Ekmxg-Nsuofnrupyg-Aqtuwsbgnd-Crrau-Jkf stions.htmlTo learn more about the COVID-19 vaccine, we invite you to visit the [facility] website for a list of frequently asked questions. [email or web address]/[email or web address]-dap-Qygeuxgo/ntihk-Mimdkbg-Ircwhvhfct _Asked-Questions.pdf [facility] Patient Portal Access Instructions: Stay connected with your healthcare team and access your personal medical information anytime with the [facility] Patient Portal. If you would like a full copy of your medical records please contact the [facility] Medical Records Department Wednesday through Wednesday between 8a.m. and 4:30p.m. Please follow the directions below to access the portal: 1.Access the email account you provided upon registration to the hospital.2.Look for an invitation email from [facility].3.Open the email and access the invitation link: Accept Invitation to [facility]4.Fill in the required tirado to create your account. Sign into [email or web address].[email or web address] with your username and password that [...] you will allow to register on the [facility] Patient Portal for access to your information. You can also access the [facility] Patient Portal on the [employer] ricardo. Simply click on Health Records under Recensus and then click on the Above Security logo. HOW TO SAFELY DISPOSE OF PRESCRIPTION [...] Call your local pharmacy or go to http://[employer].MagMe/1A0Ys4z to find one close to you.3.Make use of household items: Use cat litter or old coffee grounds to dispose medications if other options arenot available. Mix your drugs with these household products, seal them in an airtight container andthrow it into the garbage. Call [facility]: [phone] to be sure your drugs can be [...] aware that I should contact my doctor. 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 [address] [place] [address], [place] [address]. All rights reserved. This information is not intended as a substitute for professional medical care. Always follow yourhealthcare professional's instructions. Dizziness (Uncertain Cause) Dizziness is a common symptom. It may be described as lightheadedness, spinning, or feeling like you are going to faint. Dizziness can have many causes. Be sure to tell the healthcare provider about: All medicines you take, including prescription, fovh-xxh-qaprvul, herbs, and supplements Any other symptoms you [...] Chest, arm, neck, back, or jaw pain 0326-4540 [employer]. [address] [place] [address], [place] [address]. All rights reserved. This information is not intended as a substitute for professional medical care. Always follow yourhealthcare professional's instructions. Additional Information VACCINATE! IT SAVES LIVES! Members of the community who have not yet received the COVID-19 vaccine and would like to receive it can visit one of [facility] vaccine clinics. There are many vaccine clinic locations within the [facility]. For locations and available times, please visit [email or web address]. It is important to note that some COVID mobile vaccine clinics are held outdoors and may be canceled in rainy orstormy conditions. To learn more about pediatric vaccinations (ages 5-11), we invite you to visit the [facility] webpage. https://www.[facility].org/pages/1312-Dkcvr-Mlekrpxjkkn-Znxlynjrye-Scuol-Dkk stions.htmlTo learn more about the COVID-19 vaccine, we invite you to visit the [facility] website for a list of frequently asked questions. https://[employer]/assets/Qabzfhxr-dmh-Osphstwg/vlzvy-Fwbmgdq-Crfgmpmnzh _Asked-Questions.pdf [facility] Patient Portal Access Instructions: Stay connected with your healthcare team and access your personal medical information anytime with the [facility] Patient Portal. If you would like a full copy of your medical records please contact the [facility] Medical Records Department Wednesday through Wednesday between 8a.m. and 4:30p.m. Please follow the directions below to access the portal: 1.Access the email account you provided upon registration to the hospital.2.Look for an invitation email from [facility].3.Open the email and access the invitation link: Accept Invitation to [facility]4.Fill in the required tirado to create your account. Sign into www.[email or web address] with your username and password that [...] you will allow to register on the [facility] Patient Portal for access to your information. You can also access the [facility] Patient Portal on the [employer] ricardo. Simply click on Health Records under Recensus and then click on the Katie logo. [...] Call your local pharmacy or go to http://[employer].MagMe/2M7Oj5d to find one close to you.3.Make use of household items: Use cat litter or old coffee grounds to dispose medications if other options arenot available. Mix your drugs with these household products, seal them in an airtight container andthrow it into the garbage. Call [facility]: [phone] to be sure your drugs can be [...] aware that I should contact my doctor. 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/Chemical Engraver Signature: Date/Time: Relationship to Patient: Witness Name/Signature: Date/Time: [id number] HCoV 229E RNA ENRIQUE+non-probe Ql (Nph)Not Detected *NA* (08/19/22 4:45 PM)AH Auto Viro/Sero [id number] Note ORIGINAL EXAMINATION: ONE XRAY VIEW OF [...] 08/19/2022 4:42:10 PM Ordering Provider: MARTHA SHER [facility] [id number] Note ORIGINAL EXAMINATION: ONE XRAY VIEW OF [...] Date: 08/19/2022 4:42:10 PM Ordering Provider: [facility]09-19-2022 History of Present illness Narrative* Sherif Ramirez MD - 08/10/2022 3:41 PM EDT [facility] - FOLLOW UP EVALUATION Jesus Manuel Freitas, DO, DO [address] [facility] [address] Freitas, I had the pleasure of seeing Ms. Caro for follow up today. she is a 67 year old right-handed female with a history of lef thand tremor since 2021. She is seen with her . We had a visit using: [employer] I received consent from the patient to perform the visit using this platform. Subjective HISTORY OF PRESENT ILLNESS: During her previous visit the following plan was made: Previous plan-06/23/2022 Visit: Tremor -patient will contact us via [email or web address] messaging should she wish to proceed with [...] Flowsheet Row Appointment from 08/10/2022 in Neurological Shinto [facility] from 10/30/2021in Spine Medicine Global Physical [...] and is willing to rechallenge [facility] RN Current Outpatient Medications Medication Sig [...] Medication Schedule: Medications Level of service : 20372 (20-29 min). Time spent 20 min on the day of service, which included preparing to see the patient, pktd-fa-jtwn patient care, completing clinical documentation, obtaining and/or [...] Associate Staff Movement disorders Center [facility] documented in this encounterBerger Hospital08-02-2022 Instructions* Patient Instructions* Carleen Denton MD [...] scans like Clemencia scan. Discuss with your jewelry enameler starting Sinemet and send us a message via [employer] if you'd like to start the medication Return in about 3 months (around 09/23/2022) for Virtual Visit. If there are any concerns before your next visit, please call or you can send a message through [email or web address]. You can also now schedule and select appointments through [email or web address]. Carleen Denton MD documented in this encounterBerger Hospital08-02-2022 History of Present illness Narrative* Sherif Ramirez MD - 06/23/2022 3:23 PM EDT [facility] - NEW PATIENT EVALUATION Ghazala Gusman [address] [place] [address] Jesus Manuel Freitas, DO, DO [address] [facility] [address] Gusman: thank you for referring [...] EF and she eventually needed insertion of DRYWALL CONTRACTOR-D in April. In addition to her new [...] keeping her appointments. She is independent in [facility]'s. Her grandmother may have had a tremor. [...] and is willing to rechallenge [facility] RN Current Outpatient Medications Medication Sig [...] 3+ 2+ Patellar 3+ 2+ Coordination Right: Omiuhq-db-cern normal. Rapid alternating movement abnormality: Mild right-sided slowing of finger and hand movements in the context of spasticity. Moderate slowing of left finger and hand movements. Mild slowing is seen in left toe tapping and leg agility.. Left: Vpyjez-eg-tzho normal. Rapid alternating movement abnormality: Gait Slow [...] the amplitude decrements starting after the 1st fjee-evf-cvihg sequence. Arm Movements Right 2-Mild. a) 3 [...] to discuss the levodopa trial with her jewelry enameler to see if there is any cardiac [...] Visit: Tremor -patient will contact us via [email or web address] messaging should she wish to proceed with Sinemet trial. Virtual follow-up in 3 months Interested in clinical research? Not currently Level of service : 36777 (60-74) min). Time spent 60 min on the day of service, which included preparing to see the patient, ivxx-wn-pcou patient care, completing clinical documentation, obtaining and/or [...] Associate Staff Movement disorders Center of Neurological [facility]into [facility] documented in this encounterBerger Hospital07-14-2022 History of Present illness Narrative* Ghazala [...] noted at rest but better with activity. DRYWALL CONTRACTOR D placed on 05/12/22. No new N/T [...] which included preparing to see the patient, unvd-gb-dxrd patient care, completing clinical documentation, performing a medically appropriate examination, counseling and educating the patient/family/caregiver and ordering medications, tests, or procedures. documented in this encounterBerger Hospital07-01-2022 Hospital Discharge instructions Patient Education 05/22/2022 [...] or a fever with an unknown cause. Roho-xlr-dptfieq medicines will not shorten the duration of [...] your healthcare provider Feeling weak or dizzy 1913-4517 [employer]. [address] [place] [address], [place] [address]. All rights reserved. This information is not [...] where infectious diseases are common. Many people brass pickler a cold or other virus while traveling. [...] you were there Where you stayed (hotel, new [place] house, tent) What you ate and drank If you were bitten by insects or other bugs If you swam in freshwater If you had sex or got a tattoo or piercing while you were there Check the [facility] to get more information about specific infectious diseases in the areas you have traveled. 3616-7644 [employer]. [address] [place] [address]. All rights reserved. This information is not intended as a substitute for professional medical care. Always follow yourcity hospitalcare professional's instructions. 05/22/2022 15:07:47 Weakness (Uncertain [...] red color) Loss of consciousness Severe headache 2584-0357 [employer]. [address] [place] [address]. All rights reserved. This information is not intended as a substitute for professional medical care. Always follow yourhealthcare professional's instructions. Follow Up Care 05/22/2022 12:44:39 With:LARY WHEAT DO Address: [address] [place] [address] [place] [phone] When:2-4 days Comments:Schedule appointment for close follow-up.Drink plenty of fluids and rest.Use Tylenol or Advil for fever as needed.Continue current medications.Return to the ED if symptoms worsen. [facility] 07-01-2022 Emergency department Discharge summary Discharge Instructions Thank you for allowing [facility] to assist you with your healthcare needs. [...] the ED if symptoms worsen. Where: [address] [facility] [place] [phone] Allergies NKA Medications Please ask your primary [...] or a fever with an unknown cause. Diuk-xmb-szjqphh medicines will not shorten the duration of [...] your healthcare provider Feeling weak or dizzy 0796-6045 [employer]. [address] [place] [address]. All rights reserved. This information is not [...] where infectious diseases are common. Many people brass pickler a cold or other virus while traveling. [...] you were there Where you stayed (hotel, new [place] house, tent) What you ate and drank If you were bitten by insects or other bugs If you swam in freshwater If you had sex or got a tattoo or piercing while you were there Check the CDC to get more information about specific infectious diseases in the areas you have traveled. 1531-4866 [employer]. [address] [place], [place] [address]. All rights reserved. This information is not [...] red color) Loss of consciousness Severe headache 7990-6752 [employer]. [address] [place] [address]. All rights reserved. This information is not intended as a substitute for professional medical care. Always follow yourhealthcare professional's instructions. Additional Information VACCINATE! IT SAVES LIVES! Members of the community who have not yet received the COVID-19 vaccine and would like to receive it can visit one of [facility] vaccine clinics. There are many vaccine clinic locations within the [facility]. For locations and available times, please visit www.[email or web address]. It is important to note that some COVID mobile vaccine clinics are held outdoors and may be canceled in rainy orstormy conditions. To learn more about pediatric vaccinations (ages 5-11), we invite you to visit the [facility] webpage. https://www.[facility].org/pages/8392-Tlbis-Plpncvcjzlr-Qxrxidrblc-Kwjiu-Yls stions.htmlTo learn more about the COVID-19 vaccine, we invite you to visit the [facility] website for a list of frequently asked questions. https://[email or web address].Conductor/assets/Msvpszyr-ujf-Exddddcj/ovjqq-Gylgcru-Erajghawcw _Asked-Questions.pdf [facility] Patient Portal Access Instructions: Stay connected with your healthcare team and access your personal medical information anytime with the [facility] Patient Portal. If you would like a full copy of your medical records please contact the [facility] Medical Records Department Wednesday through Wednesday between 8a.m. and 4:30p.m. Please follow the directions below to access the portal: 1.Access the email account you provided upon registration to the [facility].2.Look for an invitation email from [facility].3.Open the email and access the invitation link: Accept Invitation to [facility]4.Fill in the required tirado to create your account. Sign into www.[email or web address] with your username and password that [...] you will allow to register on the [facility] Patient Portal for access to your information. You can also access the [facility] Patient Portal on the [employer]. Simply click on Health Records under Recensus and then click on the Above [employer] logo. HOW TO SAFELY DISPOSE OF PRESCRIPTION [...] Call your local pharmacy or go to http://[employer].MagMe/7P6Qf9f to find one close to you.3.Make use of household items: Use cat litter or old coffee grounds to dispose medications if other options arenot available. Mix your drugs with these household products, seal them in an airtight container andthrow it into the garbage. Call [facility]: [phone] to be sure your drugs can be [...] aware that I should contact my doctor. Patient/Chemical Engraver Signature: Date/Time: Relationship to Patient: Witness Name/Signature: [facility]/Time[id number] Emergency department Discharge summary Discharge Instructions Thank [...] the ED if symptoms worsen. Where: [address] [facility] [place] [address] [phone] Allergies NKA Medications Please ask your primary [...] or a fever with an unknown cause. Mgip-gjx-uffvtnq medicines will not shorten the duration of [...] your healthcare provider Feeling weak or dizzy 4863-2568 [employer]. [address] [place] [address], [place] [address]. All rights reserved. This information is not [...] where infectious diseases are common. Many people brass pickler a cold or other virus while traveling. [...] you were there Where you stayed (hotel, new [place] house, tent) What you ate and drank If you were bitten by insects or other bugs If you swam in freshwater If you had sex or got a tattoo or piercing while you were there Check the CDC to get more information about specific infectious diseases in the areas you have traveled. 6915-5082 [employer]. [address] [place], [place] [address]. All rights reserved. This information is not [...] red color) Loss of consciousness Severe headache 4539-2458 [employer]. [address] [place] [address]. All rights reserved. This information is not intended as a substitute for professional medical care. Always follow yourhealthcare professional's instructions. Additional Information VACCINATE! IT SAVES LIVES! Members of the community who have not yet received the COVID-19 vaccine and would like to receive it can visit one of [facility] vaccine clinics. There are many vaccine clinic locations within the [facility]. For locations and available times, please visit [email or web address]. It is important to note that some COVID mobile vaccine clinics are held outdoors and may be canceled in rainy orstormy conditions. To learn more about pediatric vaccinations (ages 5-11), we invite you to visit the [facility] webpage. https://www.[facility].org/pages/7877-Sprki-Higgspufurr-Btdqwyldaj-Losgy-Dud stions.htmlTo learn more about the COVID-19 vaccine, we invite you to visit the [place] website for a list of frequently asked questions. https://[email or web address]/assets/Ksfvdqzg-trk-Lultozok/cvyfr-Vyrfjgc-Tzvuuzzriq _Asked-Questions.pdf [facility] Patient Portal Access Instructions: Stay connected with your healthcare team and access your personal medical information anytime with the [facility] Patient Portal. If you would like a full copy of your medical records please contact the [facility] Medical Records Department Wednesday through Wednesday between 8a.m. and 4:30p.m. Please follow the directions below to access the portal: 1.Access the email account you provided upon registration to the [facility].2.Look for an invitation email from [facility].3.Open the email and access the invitation link: Accept Invitation to Katie[facility]4.Fill in the required tirado to create your account. Sign into www.Catchpoint Systems with your username and password that [...] you will allow to register on the [facility] Patient Portal for access to your information. You can also access the [facility] Patient Portal on the BakedCode. Simply click on Health Records under Recensus and then click on the Katie logo. [...] Call your local pharmacy or go to http://[employer].MagMe/3W0We9h to find one close to you.3.Make use of household items: Use cat litter or old coffee grounds to dispose medications if other options arenot available. Mix your drugs with these household products, seal them in an airtight container andthrow it into the garbage. Call [facility]: [phone] to be sure your drugs can be [...] aware that I should contact my doctor. Patient/Chemical Engraver Signature: Date/Time: Relationship to Patient: Witness Name/Signature: Date/Time: [id number] Emergency department Discharge summary Discharge Instructions Thank [...] the ED if symptoms worsen. [facility] [address] [facility] [place] [address]- [phone] Allergies NKA Medications Please ask your primary [...] or a fever with an unknown cause. Mhmz-dxj-ipjmmjl medicines will not shorten the duration of [...] healthcare provider Feeling weak or dizzy [employer]. [address] [place] [address], [place] [address]. All rights reserved. This information is not [...] where infectious diseases are common. Many people brass pickler a cold or other virus while traveling. [...] you were there Where you stayed (hotel, new [place] house, tent) What you ate and drank If you were bitten by insects or other bugs If you swam in freshwater If you had sex or got a tattoo or piercing while you were there Check the CDC to get more information about specific infectious diseases in the areas you have traveled. 6148-0534 [employer]. [address] [place], [place] [address]. All rights reserved. This information is not [...] red color) Loss of consciousness Severe headache 5821-7198 [employer]. [address] [place] [address]. All rights reserved. This information is not intended as a substitute for professional medical care. Always follow yourhealthcare professional's instructions. Additional Information VACCINATE! IT SAVES LIVES! Members of the community who have not yet received the COVID-19 vaccine and would like to receive it can visit one of [facility] vaccine clinics. There are many vaccine clinic locations within the [facility]. For locations and available times, please visit [email or web address]. It is important to note that some COVID mobile vaccine clinics are held outdoors and may be canceled in rainy orstormy conditions. To learn more about pediatric vaccinations (ages 5-11), we invite you to visit the [facility] webpage. https://www.[facility].org/pages/4369-Qjyzr-Mponmlkenpo-Rhamaegvty-Nyjcc-Zep stions.htmlTo learn more about the COVID-19 vaccine, we invite you to visit the [place] website for a list of frequently asked questions. https://[email or web address]/assets/Mzmvihgl-wth-Shidrhxa/ztelv-Vemenct-Omaxlwqtul _Asked-Questions.pdf [facility] Patient Portal Access Instructions: Stay connected with your healthcare team and access your personal medical information anytime with the [facility] Patient Portal. If you would like a full copy of your medical records please contact the [facility] Medical Records Department Wednesday through Wednesday between 8a.m. and 4:30p.m. Please follow the directions below to access the portal: 1.Access the email account you provided upon registration to the [facility].2.Look for an invitation email from [facility].3.Open the email and access the invitation link: Accept Invitation to KatieEtreasurebox4.Fill in the required tirado to create your [...] you will allow to register on the [facility] Patient Portal for access to your information. You can also access the [facility] Patient Portal on the Coinbase ricardo. Simply click on Health Records under Recensus and then click on the Katie logo. [...] Call your local pharmacy or go to http://[employer].MagMe/8O9Rs3z to find one close to you.3.Make use of household items: Use cat litter or old coffee grounds to dispose medications if other options arenot available. Mix your drugs with these household products, seal them in an airtight container andthrow it into the garbage. Call [facility]: [phone] to be sure your drugs can be [...] aware that I should contact my doctor. Patient/Chemical Engraver Signature: Date/Time: Relationship to Patient: Witness Name/Signature: Date/Time: [facility]20[facility] HCoV 229E RNA ENRIQUE+non-probe Ql (Nph)Not Detected *NA* (05/22/22 2:10 PM) Auto Viro/Sero [id number] Note ORIGINAL EXAMINATION: ONE XRAY VIEW OF [...] Sign Date: 05/22/2022 1:15:33 PM Ordering Provider: [facility]07-01-2022 Note ORIGINAL EXAMINATION: ONE XRAY VIEW [...] Sign Date: 05/22/2022 1:15:33 PM Ordering Provider: [facility]06-10-2022 Miscellaneous Notes* Telephone Encounter - Humaira Wetzel - 05/01/2022 11:14 AM EDT Mr. Pena, of [facility] was called and he scheduled an appointment on 06/04/[address] Gusman at the [facility] for f2f appointment. Aware the Rx [...] 05/01/2022 8:21 AM EDT [facility] 10[facility]30[facility]21; Last f2f on 07/10/2021. [...] and advise. Humaira Wetzel [facility] Hospital Discharge instructions Patient Education 04/25/2022 [...] action. To control pain, take prescription or xypd-yxq-jpseqhr medicines as directed. Unless told not to, [...] Severe headache, neck pain, drowsiness, or confusion 3654-9760 [employer]. [address] [place], [place] [address]. All rights reserved. This information is not intended as a substitute for professional medical care. Always follow yourhealthcare professional's instructions. Follow Up Care 04/25/2022 23:32:02 With:Go to emergency room if symptoms worsen Address:Unknown When:2-4 days With:LARY WHEAT DO Address: [address] [place] [address] Physicians [place], [place] [id number] [phone] When:2-4 days [facility] 03-17-2022 Miscellaneous Notes* Telephone Encounter - Pina Euceda - 02/05/2022 8:10 AM EDT Patient Song Chavez calling in stating him and the patient have questions about the medication Baclofen (Lioresal) that was prescribed. Please advise documented in [facility]22 Hospital Discharge instructions Patient Education 12/25/2021 14:06:01 Heart Failure, Diagnosis, Eqhc-gs-Btcx Heart Failure, Diagnosis Heart failure means that [...] 08/17/2009 Document Revised: 01/26/2020 Document Reviewed: 01/26/2020 [employer] Patient Education 2019 Quantros. Follow Up Care 12/24/2021 01:51:28 With:JAC CHRISTENSEN MD Address: [address] [facility] [address] [facility] [place] [address]- [phone] When:12/30/2021 10:15:00 Comments:THIS APPOINTMENT WILL BE WITH REI ALFONSO [facility] 02-02-2022 Evaluation + Plan noteExtracted from: [...] OV Appointment Date:2022 11:00:00 AM Scheduled Provider: [facility] Appoint[facility] Type:CV OV Appointment Date:02/12/2022 11:00:00 AM Scheduled Provider:LARY WHEAT DO Location[facility] Appointment Type:PC OV Future Scheduled Tests Laboratory* Complete Blood Count 12/09/21 * Complete Metabolic Panel 12/09/21 [facility] 01-14-2022 Hospital Discharge instructions Patient Education [...] Slowly return to your usual activities. Take fllh-xgj-rjqqmnk and prescription medicines only as told by [...] 08/03/2002 Document Revised: 04/10/2019 Document Reviewed: 04/10/2019 [employer] Patient Education 2020 Quantros. Follow Up Care 11/22/2021 03:48:42 With:LARY WHEAT DO Address: [address] [place] [address]- [phone] When:1-2 days Comments:PLEASE CALL THIS OFFICE TO SCHEDULE A HOSPITAL FOLLOW UP APPOINTMENT. With:HARISH GIFFORD APRN-SALES CLERK FOOD Address: [address] [place] [address] [address] [place] [address]- [phone] When:12/12/2021 Comments:This is your heart failure appointment. An appointment with your jewelry enameler will be made at this visit. With:Cardiac Rehab Address: [address] [facility] [place] [place] [address]- When: Unknown Comments:The Cardiac Rehab department will call you in 4-5 weeks to schedule you for phase 2. We left you a brochure with information about cardiac rehab. If you have any questions please call [phone]. With:JAC CHRISTENSEN MD Address: [address] [facility] [address] [facility] [place] [address]- [phone] When:2022 11:00:00 [facility] 01-06-2022 HCoV 229E RNA ENRIQUE+non-probe Ql (Nph)Not Detected *NA* (11/27/21 12:42 PM) Auto Viro/Sero [id number] Evaluation + Plan noteExtracted from: Title:Critical care [...] 1 L IV hydration, Rocephin, levofloxacin at [facility]. We will start patient on broad-spectrum antibiotic [...] levofloxacin and ceftriaxone, which were continued from [facility] ED. Can de-escalate to levofloxacin Order brain natriuretic peptide Empiric dose of IV furosemide 40 mg Repeat Covid test negative We will follow up blood and respiratory culture data GI prophylaxis with famotidine DVT prophylaxis with Lovenox Full code 35 minutes of critical care time Future Appointments Appointment Date:02/12/2022 11:00:00 AM Scheduled Provider:LARY WHEAT DO Location[facility] Appointment Type:PC OV Diagnostic Tests Pending * Blood Culture (bacterial) 11/22/21 * Blood Culture (bacterial) 11/22/21 [facility] 04-02-2015 History of Past illness Narrative* Problem Noted Date Resolved Date Personal history of colonic polyps 02/21/2015 02/21/2015 documented as of this encounter (statuses as of 03/16/2022) [address]02[address]2015 History of Past illness Narrative* Problem Noted Date Resolved Date Personal history of colonic polyps 02/21/2015 02/21/2015 documented as of this encounter (statuses as of 05/01/2022) [address]02[address]2015 History of Past illness Narrative* Problem Noted Date Resolved Date Personal history of colonic polyps 02/21/2015 02/21/2015 documented as of this encounter (statuses as of 06/04/2022) [address] History of Past illness Narrative* Problem Noted Date Resolved Date Personal history of colonic polyps 02/21/2015 02/21/2015 documented as of this encounter (statuses as of 06/25/2022) [address] History of Past illness Narrative* Problem Noted Date Resolved Date Personal history of colonic polyps 02/21/2015 02/21/2015 documented as of this encounter (statuses as of 07/02/2022) [address] History of Past illness Narrative* Problem Noted Date Resolved Date Personal history of colonic polyps 02/21/2015 02/21/2015 documented as of this encounter (statuses as of 08/10/2022) [address] History of Past illness Narrative* Problem Noted Date Resolved Date Personal history of colonic polyps 02/21/2015 02/21/2015 documented as of this encounter (statuses as of 10/12/2022) [address] History of Past illness Narrative* Problem Noted Date Resolved Date Personal history of colonic polyps 02/21/2015 02/21/2015 documented as of this encounter (statuses as of 11/05/2022) [address] History of Past illness Narrative* Problem Noted Date Resolved Date Personal history of colonic polyps 02/21/2015 02/21/2015 documented as of this encounter (statuses as of 05/14/2023) [address] History of Past illness Narrative* Problem Noted Date Resolved Date Personal history of colonic polyps 02/21/2015 02/21/2015 documented as of this encounter (statuses as of 05/18/2023) [address] History of Past illness Narrative* Problem Noted Date Diagnosed Date Resolved Date Personal history of colonic polyps 02/21/2015 02/21/2015 documented as of this encounter (statuses as of 07/01/2023) [address] History of Past illness Narrative* Problem Noted Date Diagnosed Date Resolved Date Personal history of colonic polyps 02/21/2015 02/21/2015 documented as of this encounter (statuses as of 07/21/2023) [address] History of Past illness Narrative* Problem Noted Date Diagnosed Date Resolved Date Personal history of colonic polyps 02/21/2015 02/21/2015 documented as of this encounter (statuses as of 09/22/2023) [address] History of Past illness Narrative* Problem Noted Date Diagnosed Date Resolved Date Personal history of colonic polyps 02/21/2015 02/21/2015 documented as of this encounter (statuses as of 09/22/2023) [address] History of Past illness Narrative* Problem Noted Date Diagnosed Date Resolved Date Personal history of colonic polyps 02/21/2015 02/21/2015 documented as of this encounter (statuses as of 10/22/2023) [address] History of Past illness Narrative* Problem Noted Date Diagnosed Date Resolved Date Personal history of colonic polyps 02/21/2015 02/21/2015 documented as of this encounter (statuses as of 10/23/2023) [facility] Talat Cameron [facility] October 01, 2023 2:08pm Note Date/Time October 01, 2023 2:08pm [facility] Medical Records Department [address] [place] [address] Counseling Note - Pharmacy 10/01/23 1408 MR#: [id number] Acct: [id number] Name: MANSI CARO Rep #:[id number] : 1955 68 From: Talat Cameron PCP: Dr. Adrienne Byers, DO Status:ADM IN Y Location: [place] [address] [place]acy [place] Med Reconciliation Pharmacy Service has performed discharge medication reconciliation for this patient. The patient's discharge medication list was reviewed for discrepancies and discrepancies were resolved. 10/01/23 1408 <Electronically signed by Talat knight> Date _ Talat Cameron Cosigner Signature (if applicable): Date CC: ~ Signed [facility] Work Phone: Consult note Author Carlotta Singletary [facility] October 12, 2023 11:48am Note Date/Time October 12, 2023 11:40am [facility] Medical Records Department [address] [place] [address] Counseling Note - Pharmacy 10/12/23 1139 MR#: [id number] Acct: [id number] Name: MANSI CARO Rep #:[id number] : 1955 68 From: Carlotta Singletary PCP: Dr. Adrienne Byers, DO Status:ADM ANGELIA Y Location: [place] [address] Pharmacy [place] Med Reconciliation Pharmacy Service has performed discharge [...] Signature (if applicable): Date CC: ~ Signed [facility] Work Phone: Consult note Author Talat Cameron [facility] February 29, 2024 11:45am Note Date/Time February 29, 2024 11:4 5am [facility] Medical Records Department [address] [place] [address] Counseling Note - Pharmacy 02/29/24 1145 MR#: [id number] Acct: [id number] Name: GORDOMANSI HILARIO Rep #:[id number] : 1955 69 From: Talat Cameron PCP: Dr. Adrienne Byers, DO Status:ADM IN Y Location: [place] [address] Pharmacy [place] Med Reconciliation Pharmacy Service has performed discharge [...] Signature (if applicable): Date CC: ~ Signed [facility] Work Phone: Consult note Author Carlotta Singletary [facility] Note Date/Time June 11, 2025 3:38 pm [facility] Medical Records Department [address] [place] [address] Counseling Note - Pharmacy 06/11/25 1506 MR#: [id number] Acct: [id number] Name: MANSI CARO Rep #:[id number] : 1955 70 From: Carlotta Singletary PCP: Marci Lopez DO Status:ADM I N Y Location: [place] [address] Pharmacy [facility] Counseling Pharmacy Service has performed discharge medication [...] mg) PO DAILY #30 tabs 06/11/25 06/11/25 1506 <Electronically signed by Carlotta Singletary> Date _ Carlotta Singletary Cosigner Signature (if applicable): Date CC: ~ Signed [facility] Work Phone: Discharge summary Author Romeo Padron [facility] Note Date/Time April 19, 2025 11:06 am [facility] Medical Records Department [address] [place] [address] Emergency Department Summary 04/19/25 MR#: [id number] Acct: [id number] Name: MANSI CARO Rep #:[id number] : 1955 70 From: Romeo Padron DO PCP: Marci Lopez DO Status:REG E R Location: ED ADDENDUM by Dr. Bossman Sanders DO on 04/19/25 at 1106 Patient care turned over to me awaiting evaluation by elementary school social worker for placement to half-way facility. Patient was evaluated by elementary school social worker and it was recommended that patient be admitted for precertification and admission to half-way facility. Will discuss case with hospitalist to [...] infection she was brought in for evaluation [facility] Medical History Ischemic colitis History [...] (patent foramen ovale) Cardiac resynchronization therapy defibrillator (DRYWALL CONTRACTOR-D) in place Myocarditis Hyperlipidemia Hypertension Home Medications [...] 0.125 mg tablet 0.125 mg PO TID [place] N dyspepsia #90 03/05/25 Unknown Rx tabs [...] 78.3 H Lymph % (Auto) 10.4 L [place] % (Auto) 8.2 Eos % (Auto) 2.5 [...] Clarity Clear Urine pH 6.5 Ur Specific [place] 1.010 Urine Protein 15 H Urine Glucose (UA) 100 H Urine Ketones Negative Urine Occult Blood Negative Urine Nitrite Negative Urine Bilirubin Negative Urine Urobilinogen Normal Ur Leukocyte Esterase Negative Urine RBC 0 SEEN Urine WBC 0 SEEN Ur Squamous Epith Cells 0 SEEN Urine Bacteria 0 SEEN Urine Mucus 0 SEEN Management Discussion w/another healthcare provider: Hospitalist and production line worker/Case management Discharge Plan Triage Chief Complaint: [...] Lopez, [Primary Care Provider] - Print Language: Tristanian What to do if you have Problems For any increased pain, shortness of breath, bleeding, nausea or vomiting, chestpain, or any unexpected problems, contact your Primary Care Provider. Call [facility] ([phone]) or report to the closest Emergency Room. Call 911 if necessary. 04/19/25 0633 <Electronically signed by Romeo Padron DO> Cosigner Signature (if applicable): CC: Marci Lopez DO ~ Signed [facility] Work Phone: Discharge summary Author Maximo Orosco [facility] Note Date/Time April 20, 2025 2:54p m [facility] Medical Records Department [address] [facility] [address] Transfer to [facility] MR#: [id number] Acct: [id number] Name: MANSI CARO Rep #:[id number] : 1955 70 From: Maximo levin DO PCP: Marci Lopez DO Status:ADM I NO Certification of patient admission REQUIRED AT TIME OF ADMISSION. I CERTIFY THAT POST-HOSPITAL ECF SERVICES ARE REQUIRED TO BE GIVEN ON AN IN-PATIENT BASIS BECAUSE OF THE ABOVE NAMED PATIENT'S NEED FOR RESIDENTIAL CARE ON A CONTINUING BASIS FOR THE [...] is a 70-year-old female who presented to [facility] ED on 04/19/2025 with worsening weakness. [...] in before D/C Order can be placed): [facility] 04/20/25 6218 <Electronically signed by Maximo Mosteller DO> Cosigner Signature (if applicable): CC: Marci Lopez DO ~ [facility] Work Phone: Discharge summary Author Maximo Orosco [facility] Note Date/Time April 20, 2025 2:55p m [facility] Medical Records Department [address] [place] [address] Discharge Summary 04/20/25 1449 MR#: [id number] Acct: [id number] Name: MANSI CARO Rep #:[id number] : 1955 70 From: Maximo levin DO PCP: Marci Lopez DO Status:ADM I NO [facility] Prov[facility] Date of Admission: 04/19/25 Date of [...] is a 70-year-old female who presented to [facility] ED on 04/19/2025 with worsening weakness. [...] in before D/C Order can be placed): [facility] Charges/Coding Visit Charges Inpatient E&M: 32975 Disch Hosp >30min 04/20/25 8532 <Electronically signed by Maximo Orosco DO> Cosigner Signature (if applicable): CC: Dr. Maximo Orosco DO; Marci Lopez DO~ Signed [facility] Work Phone: Evaluation + Plan note Future Appointments Appointment Date:10/08/2021 02:30:00 PM Scheduled Provider: Location:[facility] Appointment Type:MA Mammogram Screening Bilateral w/ Yoav Appointment Date:10/31/2021 02:00:00 PM Scheduled Provider:LARY WHEAT DO Location:[facility] Appointment Type:PC OV Future Scheduled Tests Radiology* MA Mammo Screening Bilateral w/ Yoav 10/08/21 [facility] Evaluation + Plan note Future Appointments Appointment Date:10/31/2021 02:00:00 PM Scheduled Provider:LARY WHEAT DO Location:[facility] [place] Appointment Type:PC OV [facility] Evaluation + Plan note Future Appointments Appointment Date:02/12/2022 11:00:00 AM Scheduled Provider:LARY WHEAT DO Location:[facility] [place] Appointment Type:PC OV [facility] Evaluation + Plan note Future Appointments Appointment Date:2022 11:00:00 AM Scheduled Provider: Location:[facility] Appointment Type:CV OV Appointment Date:02/12/2022 11:00:00 AM Scheduled Provider:LARY WHEAT DO Location:[facility] [place] Appointment Type:PC OV [facility] Evaluation + Plan note Future Appointments Appointment Date:12/30/2021 10:15:00 AM Scheduled Provider:REI ALFONSO Location:[facility] [place] Appointment Type:CV OV Appointment Date:2022 11:00:00 AM Scheduled Provider: Location:[facility] Appointment Type:CV OV Appointment Date:02/12/2022 11:00:00 AM Scheduled Provider:LARY WHEAT DO Location:[facility] [place] Appointment Type:PC OV Future Scheduled Tests Laboratory* Complete Blood Count 12/09/21 * Complete Metabolic Panel 12/09/21 [facility] evaluation + Plan note Future Appointments Appointment Date:2022 11:00:00 AM Scheduled Provider: Location:[facility] Appointment Type:CV OV Appointment Date:02/12/2022 11:00:00 AM Scheduled Provider:LARY WHEAT DO Location:[facility] Appointment Type:PC OV Appointment Date:02/17/2022 03:45:00 PM Scheduled Provider: Location:[facility] Appointment Type:CV OV Appointment Date:03/30/2022 02:00:00 PM Scheduled Provider: Location:[facility] Appointment Type:CV Procedure - Echo (Adult) Future Scheduled Tests Laboratory* Complete Blood Count 12/09/21 * Complete Metabolic Panel 12/09/21 [facility] Evaluation + Plan note Future Appointments Appointment Date:02/12/2022 11:00:00 AM Scheduled Provider:LARY WHEAT DO Location:[facility] Appointment Type:PC OV Appointment Date:02/17/2022 03:45:00 PM Scheduled Provider: Location:[facility] Appointment Type:CV OV Appointment Date:03/30/2022 02:00:00 PM Scheduled Provider: Location:[facility] Appointment Type:CV Procedure - Echo (Adult) [facility] Evaluation + Plan note Future Appointments Appointment Date:03/20/2022 08:45:00 AM Scheduled Provider: Location:[facility] Appointment Type:CV OV Appointment Date:03/30/2022 02:00:00 PM Scheduled Provider: Location:[facility] Appointment Type:CV Procedure - Echo (Adult) Appointment Date:05/15/2022 08:00:00 AM Scheduled Provider:LARY WHEAT DO Location:[facility] Appointment Type:PC OV Future Scheduled Tests Laboratory* Basic Metabolic Panel 03/10/22 * A1C Hemoglobin 05/15/22 * Lipid Profile 03/10/22 * Vitamin D Level 05/15/22 * Complete Metabolic Panel 05/15/22 * N-Terminal proBNP 03/10/22 [facility] evaluation + Plan note Future Appointments Appointment Date:03/09/2022 03:45:00 PM Scheduled Provider: Location:[facility] [place] Appointment Type:CV OV Appointment Date:03/20/2022 08:45:00 AM Scheduled Provider: Location:[facility] Appointment Type:CV OV Appointment Date:03/30/2022 02:00:00 PM Scheduled Provider: Location:[facility] Appointment Type:CV Procedure - Echo (Adult) Appointment Date:05/15/2022 08:00:00 AM Scheduled Provider:LARY WHEAT DO Location:[facility] Appointment Type:PC OV Future Scheduled Tests Laboratory* Basic Metabolic Panel 03/10/22 * A1C Hemoglobin 05/15/22 * Lipid Profile 03/10/22 * Vitamin D Level 05/15/22 * Complete Metabolic Panel 05/15/22 * N-Terminal proBNP 03/10/22 [facility] Evaluation + Plan note Future Appointments Appointment Date:03/09/2022 03:45:00 PM Scheduled Provider: Location:[facility] [place] Appointment Type:CV OV Appointment Date:03/20/2022 08:45:00 AM Scheduled Provider: Location:[facility] Appointment Type:CV OV Appointment Date:03/30/2022 02:00:00 PM Scheduled Provider: Location:[facility] Appointment Type:CV Procedure - Echo (Adult) Appointment Date:05/15/2022 08:00:00 AM Scheduled Provider:LARY WHEAT DO Location:[facility] Appointment Type:PC OV Future Scheduled Tests Laboratory* A1C Hemoglobin 05/15/22 * Vitamin D Level 05/15/22 * Complete Metabolic Panel 05/15/22 [facility] Evaluation + Plan note Future Appointments Appointment Date:03/20/2022 08:45:00 AM Scheduled Provider: Location:[facility] Appointment Type:CV OV Appointment Date:03/30/2022 02:00:00 PM Scheduled Provider: Location:[facility] Appointment Type:CV Procedure - Echo (Adult) Appointment Date:05/15/2022 08:00:00 AM Scheduled Provider:LARY WHEAT DO Location:[facility] Appointment Type:PC OV Future Scheduled Tests Laboratory* A1C Hemoglobin 05/15/22 * Vitamin D Level 05/15/22 * Complete Metabolic Panel 05/15/22 [facility] Evaluation + Plan note Future Appointments Appointment Date:03/30/2022 02:00:00 PM Scheduled Provider: Location:[facility] Appointment Type:CV Procedure - Echo (Adult) Appointment Date:05/01/2022 08:45:00 AM Scheduled Provider: Location:[facility] Appointment Type:CV OV Appointment Date:05/15/2022 08:00:00 AM Scheduled Provider:LARY WHEAT DO Location:[facility] Appointment Type:PC OV Diagnostic Tests Pending * Ferritin 03/20/22 * Transferrin 03/20/22 Future Scheduled Tests Laboratory* A1C Hemoglobin 05/15/22 * Cortisol Drawn in AM 03/20/22 * Vitamin D Level 05/15/22 * Complete Metabolic Panel 05/15/22 * N-Terminal proBNP 04/10/22 Radiology* MRI Cardiac Morph W+W/O Cont Flow/Veloc 03/20/22 [facility] Evaluation + Plan note Future Appointments Appointment Date:03/30/2022 02:00:00 PM Scheduled Provider: Location:[facility] Appointment Type:CV Procedure - Echo (Adult) Appointment Date:04/21/2022 04:30:00 PM Scheduled Provider: Location:[facility] Appointment Type:MRI Cardiac Morph W+W/O Cont Flow/Veloc Appointment Date:05/01/2022 08:45:00 AM Scheduled Provider: Location:[facility] Appointment Type:CV OV Appointment Date:05/15/2022 08:00:00 AM Scheduled Provider:LARY WHEAT DO Location:[facility] Appointment Type:PC OV Future Scheduled Tests Laboratory* A1C Hemoglobin 05/15/22 * Vitamin D Level 05/15/22 * Complete Metabolic Panel 05/15/22 * N-Terminal proBNP 04/10/22 Radiology* MRI Cardiac Morph W+W/O Cont Flow/Veloc 04/21/22 [facility] Evaluation + Plan note Future Appointments Appointment Date:04/03/2022 03:00:00 PM Scheduled Provider: Location:[facility] Appointment Type:INF Infusion: Venofer (1 Hour) Appointment Date:04/21/2022 04:30:00 PM Scheduled Provider: Location:[facility] Appointment Type:MRI Cardiac Morph W+W/O Cont Flow/Veloc Appointment Date:05/01/2022 08:45:00 AM Scheduled Provider: Location:[facility] Appointment Type:CV OV Appointment Date:05/15/2022 08:00:00 AM Scheduled Provider:LARY WHEAT DO Location:[facility] Appointment Type:PC OV Future Scheduled Tests Laboratory* A1C Hemoglobin 05/15/22 * Vitamin D Level 05/15/22 * Complete Metabolic Panel 05/15/22 * N-Terminal proBNP 04/10/22 Radiology* MRI Cardiac Morph W+W/O Cont Flow/Veloc 04/21/22 [facility] Evaluation + Plan note Future Appointments Appointment Date:04/21/2022 04:30:00 PM Scheduled Provider: Location:[facility] Appointment Type:MRI Cardiac Morph W+W/O Cont Flow/Veloc Appointment Date:05/01/2022 08:45:00 AM Scheduled Provider: Location:[facility] Appointment Type:CV OV Appointment Date:05/15/2022 08:00:00 AM Scheduled Provider:LARY WHEAT DO Location:[facility] Appointment Type:PC OV Future Scheduled Tests Laboratory* A1C Hemoglobin 05/15/22 * Vitamin D Level 05/15/22 * Complete Metabolic Panel 05/15/22 * N-Terminal proBNP 04/10/22 Radiology* MRI Cardiac Morph W+W/O Cont Flow/Veloc 04/21/22 [facility] Evaluation + Plan note Future Appointments Appointment Date:05/01/2022 08:45:00 AM Scheduled Provider: Location:[facility] Appointment Type:CV OV Appointment Date:05/15/2022 08:00:00 AM Scheduled Provider:LARY WHEAT DO Location:[facility] Appointment Type:PC OV Future Scheduled Tests Laboratory* A1C Hemoglobin 05/15/22 * Vitamin D Level 05/15/22 * Complete Metabolic Panel 05/15/22 [facility] Evaluation + Plan note Future Appointments Appointment Date:05/08/2022 12:45:00 PM Scheduled Provider: Location: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 Appointment Date:05/15/2022 08:00:00 AM Scheduled Provider:LARY WHEAT DO Location:[facility] Appointment Type:PC OV Appointment Date:06/09/2022 11:30:00 AM Scheduled Provider: Location:[facility] [place] Appointment Type:CV OV Appointment Date:06/17/2022 02:30:00 PM Scheduled Provider: Location:[facility] Appointment Type: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 OPERATOR Future Scheduled Tests Laboratory* A1C Hemoglobin 05/15/22 * Vitamin D Level 05/15/22 * Complete Metabolic Panel 05/15/22 * N-Terminal proBNP 08/01/22 [facility] Evaluation + Plan note Future Appointments Appointment Date:05/29/2022 03:00:00 PM Scheduled Provider: Location:[facility] Appointment Type:CV OV Incision Check Appointment Date:06/09/2022 11:30:00 AM Scheduled Provider: Location:[facility] [place] Appointment Type:CV OV Appointment Date:06/09/2022 01:30:00 PM Scheduled Provider:LARY WHEAT DO Location:[facility] [place] Appointment Type:PC OV Appointment Date:06/17/2022 02:30:00 PM Scheduled Provider: Location:[facility] Appointment 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: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 Appointment Date:09/01/2022 03:30:00 PM Scheduled Provider: Location:[facility] Appointment Type:CV Office Procedure ICD Appointment Date:12/01/2022 08:00:00 AM Scheduled Provider: Location:[facility] Appointment Type:CV Remote Procedure HM Diagnostic Tests Pending * Urine Culture 05/22/22 Future Scheduled Tests Laboratory* A1C Hemoglobin 05/15/22 * Vitamin D Level 05/15/22 * Complete Metabolic Panel 05/15/22 * N-Terminal proBNP 08/01/22 [facility] Evaluation + Plan note Future Appointments Appointment Date:06/09/2022 11:30:00 AM Scheduled Provider: Location:[facility] Appointment Type:CV OV Appointment Date:06/09/2022 01:30:00 PM Scheduled Provider:LARY WHEAT DO Location:[facility] [place] Appointment Type:PC OV Appointment Date:09/01/2022 03:30:00 PM Scheduled Provider: Location:[facility] Appointment Type:CV Office Procedure ICD Appointment Date:12/01/2022 08:00:00 AM Scheduled Provider: Location:[facility] Appointment Type:CV Remote Procedure HM Future Scheduled Tests Laboratory* Basic Metabolic Panel 06/01/22 * N-Terminal proBNP 06/01/22 * N-Terminal proBNP 08/01/22 [facility] Evaluation + Plan note Future Appointments Appointment Date:09/01/2022 03:30:00 PM Scheduled Provider: Location:[facility] Appointment Type:CV Office Procedure ICD Appointment Date:09/08/2022 02:00:00 PM Scheduled Provider:LARY WHEAT DO Location:[facility] Appointment Type:PC OV Appointment Date:12/01/2022 08:00:00 AM Scheduled Provider: Location:[facility] Appointment Type:CV Remote Procedure HM Future Scheduled Tests Laboratory* Lipid Profile 12/10/22 * N-Terminal proBNP 08/01/22 * N-Terminal proBNP 09/09/22 * N-Terminal proBNP 12/10/22 [facility] Evaluation + Plan note Future Appointments Appointment Date:07/23/2022 03:00:00 PM Scheduled Provider:LARY WHEAT DO Location:[facility] Appointment Type:PC OV Appointment Date:09/01/2022 03:30:00 PM Scheduled Provider: Location:[facility] Appointment Type:CV Office Procedure ICD Appointment Date:09/08/2022 02:00:00 PM Scheduled Provider:LARY WHEAT DO Location:[facility] Appointment Type:PC OV Appointment Date:12/01/2022 [...] N-Terminal proBNP 09/09/22 * N-Terminal proBNP 12/10/22 [facility] Evaluation + Plan note Future Appointments [...] N-Terminal proBNP 09/09/22 * N-Terminal proBNP 12/10/22 [facility] Evaluation + Plan note Future Appointments Appointment Date:09/01/2022 03:30:00 PM Scheduled Provider: Location:[facility] Appointment Type:CV Office Procedure ICD Appointment Date:09/08/2022 02:00:00 PM Scheduled Provider:LARY WHEAT DO Location:[facility] [place] Appointment Type:PC OV Appointment Date:12/01/2022 08:00:00 [...] N-Terminal proBNP 09/09/22 * N-Terminal proBNP 12/10/22 [facility] Evaluation + Plan note Future Appointments Appointment Date:12/01/2022 08:00:00 AM Scheduled Provider: Location:[facility] Appointment Type:CV Remote Procedure Appointment Date:12/08/2022 02:45:00 PM Scheduled Provider:LARY WHEAT DO Location:[facility] Appointment Type:PC OV Future Scheduled [...] 12/10/22 Radiology* CT Thorax w/o Contrast 09/08/22 [facility] Evaluation + Plan note Future Appointments Appointment Date:12/01/2022 08:00:00 AM Scheduled Provider: Location:[facility] Appointment Type:CV Remote Procedure Appointment Date:12/08/2022 02:45:00 PM Scheduled Provider:LARY WHEAT DO Location:[facility] Appointment Type:PC OV Future Scheduled [...] N-Terminal proBNP 12/09/22 * N-Terminal proBNP 12/10/22 [facility] Evaluation + Plan note Future Appointments Appointment Date:12/01/2022 08:00:00 AM Scheduled Provider: Location:[facility] Appointment Type:CV Remote Procedure Appointment Date:12/08/2022 02:45:00 PM Scheduled Provider:LARY WHEAT DO Location:[facility] Appointment Type:PC OV Future Scheduled Tests [...] N-Terminal proBNP 01/28/23 * N-Terminal proBNP 12/10/22 [facility] Evaluation + Plan note Future Appointments Appointment Date:11/30/2022 03:30:00 PM Scheduled Provider:ADRIENNE BYERS DO Location:[facility] [place] Appointment Type:PC OV Appointment Date:12/01/2022 08:00:00 AM Scheduled Provider: Location:[facility] Appointment Type:CV Remote Procedure HM Appointment Date:12/08/2022 02:45:00 PM Scheduled Provider:LARY WHEAT DO Location:[facility] Appointment Type:PC OV Diagnostic Tests [...] N-Terminal proBNP 01/28/23 * N-Terminal proBNP 12/10/22 [facility] Evaluation + Plan note Future Appointments Appointment Date:12/08/2022 03:00:00 PM Scheduled Provider:LARY WHEAT DO Location:[facility] Appointment Type:PC OV Appointment Date:03/12/2023 [...] N-Terminal proBNP 01/28/23 * N-Terminal proBNP 12/10/22 [facility] Evaluation + Plan note Future Appointments Appointment Date:03/12/2023 11:45:00 AM Scheduled Provider: Location:[facility] Appointment Type:CV Remote Procedure Appointment Date:03/23/2023 02:30:00 PM Scheduled Provider:LARY WHEAT DO Location:[facility] Appointment Type:PC OV Future Scheduled [...] N-Terminal proBNP 12/09/22 * N-Terminal proBNP 01/28/23 [facility] Evaluation + Plan note Future Appointments Appointment Date:03/12/2023 11:45:00 AM Scheduled Provider: Location:[facility] Appointment Type:CV Remote Procedure Appointment Date:03/24/2023 02:30:00 PM Scheduled Provider:ADRIENNE BYERS DO Location:[facility] [place] Appointment Type:PC OV Future Scheduled Tests [...] N-Terminal proBNP 12/09/22 * N-Terminal proBNP 01/28/23 [facility] Evaluation + Plan note Future Appointments Appointment Date:05/18/2023 10:00:00 AM Scheduled Provider: Location:[facility] Appointment Type:CV OV Appointment Date:06/29/2023 09:45:00 AM Scheduled Provider: Location:[facility] Appointment Type:CV Remote Procedure HM Appointment Date:07/29/2023 02:45:00 PM Scheduled Provider:ADRIENNE BYERS DO Location:[facility] Appointment Type:PC Wellness Annual Future Scheduled Tests [...] N-Terminal proBNP 12/09/22 * N-Terminal proBNP 01/28/23 [facility] Evaluation + Plan note Future Appointments Appointment Date:06/29/2023 09:45:00 AM Scheduled Provider: Location:[facility] Appointment Type:CV Remote Procedure Appointment Date:07/29/2023 02:45:00 PM Scheduled Provider:ADRIENNE BYERS DO Location:[facility] Appointment Type:PC Wellness Annual Future Scheduled Tests [...] 01/28/23 Radiology* CT Thorax w/o Contrast 11/24/23 [facility] Evaluation + Plan note Future Appointments [...] 01/28/23 Radiology* CT Thorax w/o Contrast 11/24/23 [facility] Evaluation + Plan note Future Appointments [...] 01/28/23 Radiology* CT Thorax w/o Contrast 11/24/23 [facility] Evaluation + Plan note Future Appointments [...] 01/28/23 Radiology* CT Thorax w/o Contrast 11/24/23 [facility] Evaluation + Plan note Future Appointments [...] 01/28/23 Radiology* CT Thorax w/o Contrast 11/24/23 [facility] Evaluation + Plan note Future Appointments Appointment Date:10/28/2023 01:00:00 PM Scheduled Provider: Location:[facility] Appointment Type:OT Outpatient Evaluation Appointment Date:10/29/2023 11:30:00 AM Scheduled Provider:ADRIENNE BYERS DO Location:[facility] [place] Appointment Type:PC OV TCM [...] 01/28/23 Radiology* CT Thorax w/o Contrast 11/24/23 [facility] Evaluation + Plan note Future Appointments Appointment Date:12/30/2023 01:30:00 PM Scheduled Provider: Location:[facility] Appointment Type:OT Treatment Appointment Date:01/03/2024 01:30:00 PM Scheduled Provider: Location:[facility] Appointment Type:OT Treatment Appointment Date:02/21/2024 02:30:00 PM Scheduled Provider:ADRIENNE BYERS DO Location:[facility] [place] Appointment Type:PC OV Appointment [...] 01/28/23 Radiology* CT Thorax w/o Contrast 11/24/23 [facility] Evaluation + Plan note Future Appointments Appointment Date:02/21/2024 02:30:00 PM Scheduled Provider:ADRIENNE BYERS DO Location:[facility] [place] Appointment Type:PC OV Appointment [...] 01/28/23 Radiology* CT Thorax w/o Contrast 11/24/23 [facility] Evaluation + Plan note Future Appointments Appointment Date:06/06/2024 08:30:00 AM Scheduled Provider: Location:[facility] Appointment Type:CV OV Appointment Date:06/16/2024 10:00:00 AM Scheduled Provider: Location:[facility] Appointment Type:CV Remote Procedure Appointment Date:06/23/2024 01:30:00 PM Scheduled Provider:ADRIENNE BYERS DO Location:[facility] [place] Appointment Type:PC OV Future Scheduled Tests Laboratory* Basic Metabolic Panel 06/11/23 * Urinalysis 04/29/23 * Lipid Profile 05/03/24 * Albumin/Creatinine Ratio, Random Urine 04/29/23 * Albumin/Creatinine Ratio, Random Urine 02/25/24 * N-Terminal proBNP 05/03/24 Radiology* CT Thorax w/o Contrast 11/24/23 [facility] Evaluation + Plan note Future Appointments Appointment Date:06/06/2024 08:30:00 AM Scheduled Provider: Location:[facility] Appointment Type:CV OV Appointment Date:06/16/2024 10:00:00 AM Scheduled Provider: Location:[facility] Appointment Type:CV Remote Procedure Appointment Date:06/23/2024 01:30:00 PM Scheduled Provider:ADRIENNE BYERS DO Location:[facility] [place] Appointment Type:PC OV Appointment Date:12/07/2024 03:00:00 PM Scheduled Provider:ADRIENNE BYERS DO Location:[facility] Appointment Type:PC Wellness Medicare Future Scheduled Tests Laboratory* Basic Metabolic Panel 06/11/23 * Albumin/Creatinine Ratio, Random Urine 02/25/24 Radiology* CT Thorax w/o Contrast 11/24/23 [facility] Evaluation note* Diagnosis Tremor of left hand- 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 Diagnosis Tremor of left hand 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 Parkinsonism, unspecified Parkinsonism type (HCC) documented in this encounter [facility] noteNo assessment information availableWThe [facility] Work Phone: Evaluation note* Diagnosis Onset Date Resolution Status Cerebrovascular disease acut e CVA (cerebral vascular accident) acute AV node dysfunction acute Ischemic cardiomyopathy acut e Presence of biventricular im plantable cardioverter-defibrillator acute [facility] Work Phone: Evaluation note* Diagnosis Onset Date Resolution Status Cerebrovascular disease acut e CVA (cerebral vascular accident) acute AV node dysfunction acute Ischemic cardiomyopathy acut e Presence of biventricular im plantable cardioverter-defibrillator acute Anxiety acute CVA (cerebral vascular accident) acute Debility acute Depression acute Diabetes mellitus acute GERD (gastroesophageal reflux disease) acute Muscle spasm acute Overactive bladder acute Transient ischemic attack ac [place] Vitamin D deficiency acute HLD (hyperlipidemia) chronic HTN (hypertension) chronic CVA (cerebral vascular accident) acute [facility] Work Phone: Evaluation note* Diagnosis Onset Date Resolution Status Cerebrovascular disease acut e AV node dysfunction acute Ischemic cardiomyopathy acut e Presence of biventricular im plantable cardioverter-defibrillator acute Anxiety acute Debility acute Depression acute Diabetes mellitus acute GERD (gastroesophageal reflux disease) acute Muscle spasm acute Overactive bladder acute Transient ischemic attack ac [place] Vitamin D deficiency acute HLD (hyperlipidemia) chronic HTN (hypertension) chronic Ischemic cardiomyopathy acut e Transient ischemic attack ac [place] PFO (patent foramen ovale) c hronic [facility] Work Phone: Evaluation note* Diagnosis Essential tremor- Primary Essential and other specified forms of tremor Tremor of left hand [facility]* Diagnosis Onset Date Resolution Status Cerebrovascular [...] e PFO (patent foramen ovale) c hronic [facility] Work Phone: Evaluation note* Diagnosis Onset Date Resolution Status Colitis acute Gastrointestinal bleeding, lower acute [facility] Work Phone: Evaluation note* Diagnosis Onset [...] vascular accident) resolved Gastrointestinal bleeding, lower resolved [facility] Work Phone: Evaluation note* Diagnosis History of stroke- Primary Transient ischemic attack (TIA), and cerebral infarction without residual deficits Spasticity Abnormal involuntary movements [facility] Diagnosis Other constipation [facility] Diagnosis Other constipation- Primary Other constipation [facility] Diagnosis Dizziness and giddiness documented [facility] Diagnosis Other forms of dyspnea [facility] Diagnosis Other forms of dyspnea- Primary [facility] Diagnosis Dizziness and giddiness- Primary Dizziness and giddiness documented [facility] Diagnosis Tardive dyskinesia- Primary Subacute dyskinesia due to drugs documented in this encounter [facility] note* Diagnosis Essential tremor- Primary Essential and other specified forms of tremor Dyskinesia, tardive Subacute dyskinesia due to drugs documented in this [facility]* Diagnosis Presence of cardiac pacemaker Cardiac pacemaker in situ documented in this encounter [facility] note* Diagnosis Essential tremor Essential and other specified forms of tremor Dyskinesia, tardive Subacute dyskinesia due to drugs [facility] Tardive dyskinesia- Primary Subacute dyskinesia due to drugs [facility] Diagnosis Chronic systolic (congestive) heart failure (HCC) [facility] Diagnosis Tardive dyskinesia- Primary Subacute dyskinesia due to drugs [facility] Author Jaci Greco [facility] October 07, 2023 2:38pm Note Date/Time October 07, 2023 1:59pm [facility] Medical Records Department [address] [place] [address] H&P Exam - Hospitalist 10/07/23 1355 MR#: [id number] Acct: [id number] Name: MANSI CARO Rep #:[id number] : [...] and Plavix who now re-presents to the [facility] ED on 10/07/23 with history of [...] patient administered baclofen 10 mg p.o. x1. [facility] History (Updated 10/07/23 @ 14:[address] Jaci Greco MD) Anxiety and depression AV node dysfunction Cardiac resynchronization therapy defibrillator (DRYWALL CONTRACTOR-D) in place Cerebral palsy Coronary artery disease [...] (Auto) 41.7 L, Lymph % (Auto) 47.6 H,[place] % (Auto) 9.0, Eos % (Auto) 0.9, [...] and Plavix who now re-presents to the [facility] ED on 10/07/23 with history of [...] 16 minutes. Charges/Coding Visit Charges Inpatient E&M: 35246 Init Hosp L3 Procedures Hospitalists Procedures: 63896 Advncd Care Plan 30 Min 10/07/23 1438 <Electronically signed by Jaci Greco MD> Cosigner Signature (if applicable): CC: Dr. Jaci Greco MD; Dr. Adrienne Byers DO~ Signed [facility] Work Phone: History and physical note Author Ben [facility] February 21, 2024 9:35pm Note Date/Time February 21, 2024 9:35 pm [facility] Medical Records Department [address] [place] [address] H&P Exam - Hospitalist 02/21/242124 MR#: [id number] Acct: [id number] Name: MANSI CARO Rep #:[id number] : 1955 69 From: Ben Johnson DO PCP: Dr. Adrienne Byers DO Status:ADM IN Location: [facility] [id number] HPI - General General Date of Admission: 02/21/24 Date of Service: 02/21/24 Chief Complaint: Abdominal pain, bright red blood in stool HPI Narrative MANSI CARO, is a 69 F who presents to the emergency room at [facility] for evaluation of right red rectal [...] neoplastic component. Patient will be admitted to [place] [address], she will be placed on IV antibiotics, shewill be seen by gastroenterology, she may need endoscopic procedures. Labs willbe monitored. [facility] Medical History Anxiety and depression AV node dysfunction Cardiac resynchronization therapy defibrillator (DRYWALL CONTRACTOR-D) in place Cerebral palsy Congestive heart failure [...] (Auto) 88.4 H, Lymph % (Auto) 5.3L, [place] % (Auto) 5.5, Eos % (Auto) 0.0, [...] Clarity Clear, Urine pH 5.0, Ur Specific [place] 1.015, Urine Protein 15 H, Urine Glucose [...] Colitis-etiology unclear, patient will be admitted to [facility], she was placed on IV [...] 75 minutes Charges/Coding Visit Charges Inpatient E&M: 52076 Init Hosp L3 02/21/24 8911 <Electronically signed by Ben Tereletsky DO> Cosigner Signature (if applicable): CC: Dr. Ben Johnson, DO; Dr. Adrienne Byers, DO~ Signed [facility] Work Phone: Hospital course Narrative No data available for this section [facility] Hospital Discharge instructions No data available for this section [facility] Hospital Discharge instructions Additional Instructions Follow-up at your PCP appointment on Wednesday and return for any worsening of your symptoms. Stay well-hydrated, you can take either MiraLAX or Dulcolax for your constipation. [facility] Work Phone: Hospital Discharge instructions Additional Instructions You can take [id number]-[id number] pain relievers or your oxycodone as needed for breakthrough pain. [facility] Work Phone: Hospital Discharge instructionsAdditional Instructions Follow-up your doctor in outpatient setting. Take antibiotics for your urinary tract infection as prescribed use other antibiotics as prescribed as well. Return with worsening symptoms or any concerns. 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, unspecified Parkinsonism type (HCC) Procedures NM BRAIN TREMOR SPECT/CT RP LOCLZJ YASMANI SPECT W/CT 1 AREA 1 DAY IMAGING Sherif Ramirez MD [address] [place] [address] Molecular & Functional Imaging [address] [place] [address] Referral ID Status Reason Start Date Expiration Date Visits Requested Visits Authorized [id number] Authorized Auto-Generat ed Referral 07/01/2023 07/30/2024 1 1 [facility] for visit Narrative* Diagnostic Procedure Only (Routine) - Closed Specialty Diagnoses / Procedures Referred By Oni angel Referred To Contact MOLECULAR & FUNCTIONAL IMAGING 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, unspecified Parkinsonism type Procedures NM BRAIN TREMOR SPECT/CT RP LOCLZJ YASMANI SPECT W/CT 1 AREA 1 DAY IMAGING Sherif Ramirez MD [address] [place] [address] Molecular [facility] Functional Imaging [address] [place] [id number] Referral ID Status Reason Start Date Expiration Date V isits Requested Visits Authorized [id number] Closed Auto-Generate d Referral 07/01/2023 07/30/2024 1 1 [facility] for visit Narrative* Diagnostic Procedure Only (Routine) - Closed Specialty Diagnoses / Procedures Referred By Oni angel Referred To Contact Radiology / RADIO CT SCAN Diagnoses Solitary pulmonary nodule CT CHEST W/O CONTRAST R91.1 pulmonary nodule ORDER IN SCANNED DOCS AUTH # [id number] VALID 07.12.24 TO 09.10.24 Procedures DIAGNOSTIC COMPUTED TOMOGRAPHY THORAX W/O CNTRST CT WO CH 400 Martha Pillai V, MD [address] Scan [facility] [address] [place] [address] Referral ID Status Reason Start Date Expiration Date Visits Re quested Visits Authorized [id number] Closed 07/12/2024 09/10/2024 1 1 [facility] for visit Narrative* Imaging (Routine) - Closed Specialty Diagnoses / Procedures Referred By Oni angel Referred To Contact Cardiology Diagnoses Dizziness and giddiness Procedures Vascular US carotid artery duplex bilateral Pina Isidro [address] [place] [address] Phone: tel: fax: Referral ID Status Reason Start Date Expiration Date Visits Re quested Visits Authorized [id number] Closed 11/07/2024 11/07/2025 1 1 [facility] for visit Narrative* (Routine) - Pending Review Specialty Diagnoses / Procedures [facility] Referred To Contact Diagnoses Other forms of dyspnea Procedures Complete PFT pre and post [place] [address] Phone: tel: fax: Referral ID Status Reason Start Date Expiration Date V isits Requested Visits Authorized [id number] Pending Review 10/13/2024 10/08/2025 1 1 [facility] for visit Narrative* MRI/CT (Routine) - Authorized Specialty Diagnoses / Procedures Referred By [facility] Referred To Contact Radiology / RADIO CT SCAN Diagnoses Other nonspecific abnormal finding of lung field CT Chest wo contrast DX: R91.8 Auth# [id number] Order scanned into chart on 01/05/2025 Procedures DIAGNOSTIC COMPUTED TOMOGRAPHY THORAX W/O CNTRST CT WO CH 400 Kalen Izaguirre MD [address] [address] Phone: tel: fax: RADIO CT SCAN [facility] [address] [place] [address] Phone: tel: fax: Referral ID Status Reason Start Date Expiration Date V isits Requested Visits Authorized [id number] Authorized 01/02/2025 03/03/2025 2 2 [facility] for visit Narrative* MRI/CT (Routine) - Closed Specialty Diagnoses / Procedures [facility] Referred To Contact MR IMAGING Diagnoses Essential tremor Dyskinesia, tardive Procedures MRI BRAIN WO IVCON MRI BRAIN BRAIN STEM W/O CONTRAST MATERIAL Leyla Murphy MD [address] [place] [address] Phone: tel: fax: [place] [address] Referral ID Status Reason Start Date Expiration Date V isits Requested Visits Authorized [id number] Closed Auto-Generate d Referral 03/23/2025 05/22/2025 1 1 [facility] Summary Purpose Family History No Family [...] Will Yes September 28 8:21pm Power of Animal Nursery Worker Yes September 28, 2023 8:21pm Name of Medical Power of Animal Nursery Worker BEATRICE PENA September 28, 2023 8:21pm Advance Directive Response Recorded Date/ Time Name of Medical Power of Animal Nursery Worker Song yeboah September 28, 2023 10:25pm Advance Directives Yes May 18 7:27pm Living Will Yes September 28 10:25pm Power of Animal Nursery Worker Yes September 28, 2023 10:25pm Advance Directive Response Recorded Date/ Time Name of Medical Power of Animal Nursery Worker Song yeboah September 28, 2023 10:25pm Name of Medical Power of Animal Nursery Worker jose Nqavi October 04, 2023 1:28pm Name of Medical Power of Animal Nursery Worker spouse October 07, 2023 1:12pm Advance Directives Yes May 18 7:27pm Living Will Yes October 07 2 023 1:12pm Power of Animal Nursery Worker Yes October 07, 2023 1:12pm Advance Directive Response Recorded Date/ Time Name of Medical Power of Animal Nursery Worker Song yeboah September 28, 2023 10:25pm Name of Medical Power of Animal Nursery Worker jose Naqvi October 04, 2023 1:28pm Name of Medical Power of Animal Nursery Worker spouse October 07, 2023 3:14pm Advance Directives Yes May 18 7:27pm Living Will Yes November 16th, 2 023 3:14pm Power of Animal Nursery Worker Yes October 07, 2023 3:14pm Advance Directive Response Recorded Date/ Time Name of Medical Power of Animal Nursery Worker Song Kathy yeboah September 28, 2023 10:25pm Name of Medical Power of Animal Nursery Worker jose Naqvi October 04, 2023 1:28pm Name of Medical Power of Animal Nursery Worker spouse October 07, 2023 3:14pm Name of Medical Power of Animal Nursery Worker Song Ramírez December 08, 2023 3:46pm Advance Directives Yes May 18 7:27pm Living Will Yes December 08 3:46pm Power of Animal Nursery Worker Yes December 08, 2023 3:46pm Advance Directive Response Recorded Date/ Time Name of Medical Power of Animal Nursery Worker Song Ramírez December 08, 2023 4:46pm Advance Directives Yes May 18 8:27pm Living Will No February 19, 2024 4:09pm Power of Animal Nursery Worker No February 18 4:09pm Advance Directive Response Recorded Date/ Time Name of Medical Power of Animal Nursery Worker Song Ramírez December 08, 2023 4:46pm Advance Directives Yes May 18 8:27pm Living Will No February 21, 2024 3:03pm Power of Animal Nursery Worker No February 20 3:03pm Advance Directive Response Recorded Date/ Time Name of Medical Power of Animal Nursery Worker Song Ramírez December 08, 2023 4:46pm Name of Medical Power of Animal Nursery Worker Song Chavez nakita February 21, 2024 10:15pm Advance Directives Yes May 18 8:27pm Living Will Yes February 21, 2024 10:15pm Power of Animal Nursery Worker Yes February 20 10:15pm Advance Directive Response Recorded Date/ Time Name of Medical Power of Animal Nursery Worker Song Bronsonkatelynn December 08, 2023 4:46pm Name of Medical Power of Animal Nursery Worker Song Ortiztamikanatalia nakita February 21, 2024 10:15pm Name of Medical Power of Animal Nursery Worker Song eris March 08, 2024 4:39pm Advance Directives Yes May 18 8:27pm Living Will Yes March 08, 2024 4:39pm Power of Animal Nursery Worker Yes March 08 4:39pm Advance Directive Response Recorded Date/ Time Living Will Yes July 03 7:58pm Do you have a Healthcare Power of Animal Nursery Worker? Yes July 03, 2024 7:58pm Advance Directives Yes October 2:46pm Living Will Yes September 09 2:39pm Do you have a Healthcare Power of Animal Nursery Worker? Yes September 09, 2024 2:39pm Living Will No November 18 3:39pm Do you have a Healthcare Power of Animal Nursery Worker? No November 18, 2024 3:39pm Living Will No March 10, 2025 11:55am Do you have a Healthcare Power of Animal Nursery Worker? No March 10, 2025 11:55am Advance Directive Response Recorded Date/ Time Living Will Yes July 03 7:58pm Do you have a Healthcare Power of Animal Nursery Worker? Yes July 03, 2024 7:58pm Advance Directives Yes October 2:46pm Living Will No March 10, 2025 11:55am Do you have a Healthcare Power of Animal Nursery Worker? No March 10, 2025 11:55am Advance Directive Response Recorded Date/ Time Living Will Yes July 03 7:58pm Do you have a Healthcare Power of Animal Nursery Worker? Yes July 03, 2024 7:58pm Living Will No March 10, 2025 11:55am Do you have a Healthcare Power of Animal Nursery Worker? No March 10, 2025 11:55am Do you have a Healthcare Power of Animal Nursery Worker? Yes April 19, 2025 3:35am Advance Directives Yes October 2:46pm Advance Directive Response Recorded Date/ Time Living Will Yes July 03 7:58pm Do you have a Healthcare Power of Animal Nursery Worker? Yes July 03, 2024 7:58pm Living Will No March 10, 2025 11:55am Do you have a Healthcare Power of Animal Nursery Worker? No March 10, 2025 11:55am Do you have a Healthcare Power of Animal Nursery Worker? Yes April 19, 2025 1:19pm Advance Directives Yes October 2:46pm Advance Directive Response Recorded Date/ Time Living Will Yes July 03 7:58pm Do you have a Healthcare Pow er of Animal Nursery Worker? Yes July 03, 2024 7:58pm Do you have a Healthcare Pow er of Animal Nursery Worker? No April 23, 2025 4:09pm Do you have a Healthcare Pow er of Animal Nursery Worker? Yes April 24, 2025 3:39pm Name of Medical Power of Animal Nursery Worker Song Kathy nakita, April 24, 2025 3:39pm Living Will No March 10, 2025 11:55am Do you have a Healthcare Pow er of Animal Nursery Worker? No March 10, 2025 11:55am Do you have a Healthcare Pow er of Animal Nursery Worker? Yes April 19, 2025 1:19pm Advance Directives Yes October 2:46pm Advance Directive Response Recorded Date/ Time Living Will Yes July 03 7:58pm Do you have a Healthcare Pow er of Animal Nursery Worker? Yes July 03, 2024 7:58pm Do you have a Healthcare Pow er of Animal Nursery Worker? No April 23, 2025 4:09pm Do you have a Healthcare Pow er of Animal Nursery Worker? Yes April 24, 2025 3:39pm Name of Medical Power of Animal Nursery Worker Songdhruv Chavez nakita, April 24, 2025 3:39pm Do you have a Healthcare Pow er of Animal Nursery Worker? No May 22, 2025 4:39pm Living Will No March 10, 2025 11:55am Do you have a Healthcare Pow er of Animal Nursery Worker? No March 10, 2025 11:55am Do you have a Healthcare Pow er of Animal Nursery Worker? Yes April 19, 2025 1:19pm Advance Directives Yes October 2:46pm Advance Directive Response Recorded Date/ Time Do you have a Healthcare Pow er of Animal Nursery Worker? No April 23, 2025 4:09pm Do you have a Healthcare Pow er of Animal Nursery Worker? Yes April 24, 2025 3:39pm Name of Medical Power of Animal Nursery Worker Songdhruv yeboah, April 24, 2025 3:39pm Do you have a Healthcare Pow er of Animal Nursery Worker? No May 22, 2025 4:39pm Living Will No March 10, 2025 11:55am Do you have a Healthcare Pow er of Animal Nursery Worker? No March 10, 2025 11:55am Do you have a Healthcare Pow er of Animal Nursery Worker? Yes April 19, 2025 1:19pm Advance Directives Yes October 2:46pm Advance Directive Response Recorded Date/ Time Do you have a Healthcare Pow er of Animal Nursery Worker? No April 23, 2025 4:09pm Do you have a Healthcare Pow er of Animal Nursery Worker? Yes April 24, 2025 3:39pm Name of Medical Power of Animal Nursery Worker Song yeboah, April 24, 2025 3:39pm Do you have a Healthcare Pow er of Animal Nursery Worker? No May 22, 2025 4:39pm Living Will No March 10, 2025 11:55am Do you have a Healthcare Pow er of Animal Nursery Worker? No March 10, 2025 11:55am Do you have a Healthcare Pow er of Animal Nursery Worker? Yes April 19, 2025 1:19pm Do you have a Healthcare Pow er of Animal Nursery Worker? No June 02, 2025 10:35am Advance Directives Yes October 2:46pm Advance Directive Response Recorded Date/ Time Do you have a Healthcare Pow er of Animal Nursery Worker? No April 23, 2025 4:09pm Do you have a Healthcare Pow er of Animal Nursery Worker? Yes April 24, 2025 3:39pm Name of Medical Power of Animal Nursery Worker Song yeboah, April 24, 2025 3:39pm Do you have a Healthcare Pow er of Animal Nursery Worker? No May 22, 2025 4:39pm Living Will No March 10, 2025 11:55am Do you have a Healthcare Pow er of Animal Nursery Worker? No March 10, 2025 11:55am Do you have a Healthcare Pow er of Animal Nursery Worker? Yes April 19, 2025 1:19pm Do you have a Healthcare Pow er of Animal Nursery Worker? Yes June 02, 2025 2:27pm Advance Directives Yes October 2:46pm Reason for Referral Specialty Diagnoses / Procedures Referred By Oni angel Referred To Contact Diagnoses Tremor of left hand Essential tremor Procedures PROVIDER ORDERED FOLLOW UP OFFICE/OUTPATIENT [facility] 60-74 MINUTES Sherif Ramirez MD [address] [place] [address] Referral ID Status Reason Start Date Expiration Date Visits Requested Visits Authorized [id number] Pending Review PCP Requested Referral 3 01/18/2024 1 1 Specialty Diagnoses / Procedures Referred By Oni angel Referred To Contact [facility] Diagnoses Tremor of left hand Essential tremor Procedures CONSULT TO MANAGER TRAFFIC OCCUPATIONAL THERAPY EVAL HIGH COMPLEX 60 MINS Sherif Ramirez MD [address] [place] [address] [facility] [place] [address] [place] [address] Referral ID Status Reason Start Date Expiration Date Visits Requested Visits Authorized [id number] Pending Review Auto-Generat ed Referral 3 10/19/2024 1 1 Specialty Diagnoses / Procedures Referred By Oni angel Referred To Contact Diagnoses Tremor of left hand Procedures PROVIDER ORDERED FOLLOW UP OFFICE/OUTPATIENT [facility] MDM 60-74 MINUTES Sherif Ramirez MD [address] [place] [address] Referral ID Status Reason Start Date Expiration Date Visits Requested Visits Authorized [id number] Authorized PCP Requested Referral 06/23/2022 06/23/2023 1 1 Specialty Diagnoses / Procedures Referred By Oni angel Referred To Contact Neurology Diagnoses Tremor of left hand Procedures CONSULT TO NEUROLOGY OFFICE/OUTPATIENT [facility] 60-74 MINUTES Ghazala Gusman MD [address] [place] [address] Referral ID Status Reason Start Date Expiration Date Visits Requested Visits Authorized [id number] Authorized PCP Requested Referral 06/04/2022 06/04/2023 1 [...] - LABS (DOING 1 DAY PRIOR) January 2024 1:02pm Pacer Check Remote January 29, 2025 [...] stool February 14, 2025 8:2 6am Anemia March 26th, 2025 8:2 6am Chronic constipation February 14, [...] section and content) DATE CREATED AUTHOR 01/17/2020 [facility] DATE CREATED AUTHOR AUTHOR'S ORGANIZ ATION 04/10/2020 [facility] DATE CREATED AUTHOR AUTHOR'S ORGANIZ ATION 05/21/2024 [facility] ([place]) DATE CREATED AUTHOR AUTHOR'S ORGANIZ ATION 01/25/2025 [facility] nter DATE CREATED AUTHOR AUTHOR'S ORGANIZ ATION 03/03/2025 [facility] DATE CREATED AUTHOR AUTHOR'S ORGANIZ ATION 04/04/2025 [facility] DATE CREATED AUTHOR AUTHOR'S ORGANIZ ATION 06/17/2025 [facility] DATE CREATED AUTHOR AUTHOR'S ORGANIZ ATION 06/30/2025 [facility] DATE CREATED AUTHOR AUTHOR'S ORGANIZ ATION 07/01/2025 [facility] Care Team (unrecognized sect ion and content) [...] 2025 End: February 13, [address] EQUIPMENT OPERATOR, ROAD EQUIPMENT OPERATOR-C Attending Provider Active Start: February 13, 2025 [...] Inactive Member Role Status Dates Dr. Marci Lpoez DO Primary Care Provider Ac tive Start: March 10, 2025 End: March 10, 2025 Dr. Jose Jaime DO Attending Provider Active Start: March 10, 2025 End: March 10, 2025 Dr. Jose Jaime , Emergency Provider Active Start: March 10, 2025 End: March 10, 2025 Rehab Liaison Relationship Specialty Start Date End Date Jesus Manuel Freitas DO [address] [place] [address] PCP - General 02/21/15 Rehab Liaison Relationship Specialty Start Date End Date Jesus Manuel Freitas DO [address] [place] [address] PCP - General 02/21/15 Rehab Liaison Relationship Specialty Start Date End Date Jesus Manuel Freitas DO [address] [place] [address] PCP - General 02/21/15 Rehab Liaison Relationship Specialty Start Date End Date Jesus Manuel Freitas DO [address] [place] [address] PCP - General 02/21/15 Rehab Liaison Relationship Specialty Start Date End Date Jesus Manuel Freitas DO [address] [place] [address] PCP - General 02/21/15 Rehab Liaison Relationship Specialty Start Date End Date Jesus Manuel Freitas DO [address] [place] [address] PCP - General 02/21/15 Kailyn Donald, ACCOUNT SERVICES REPRESENTATIVE.SALES CLERK FOOD [address] [facility] [place] [address] Specialty Supervisor Steel Division Neurology 09/09/22 Rehab Liaison Relationship Specialty Start Date End Date Jesus Manuel Freitas, DO [address] [place] [address] PCP - General 02/21/15 Kailyn Donald, ACCOUNT SERVICES REPRESENTATIVE.SALES CLERK FOOD [address] [place] [address] Specialty Supervisor Steel Division Neurology 09/09/22 Rehab Liaison Relationship Specialty Start Date End Date Jesus Manuel Freitas, DO [address] [place] [address] PCP - General 02/21/15 Kailyn Donald, ACCOUNT SERVICES REPRESENTATIVE.SALES CLERK FOOD [address] [place] [address] Specialty Supervisor Steel Division Neurology 09/09/22 Gissell Hunt, ACCOUNT SERVICES REPRESENTATIVE.SALES CLERK FOOD [address] [place] [address] Specialty Supervisor Steel Division Neurology 12/07/22 Rehab Liaison Relationship Specialty Start Date End Date Jesus Manuel Freitas, DO [address] [place] [address] PCP - General 02/21/15 Kailyn Donald, ACCOUNT SERVICES REPRESENTATIVE.SALES CLERK FOOD [address] [place] [address] Specialty Supervisor [employer] Neurology 09/09/22 Gissell Hunt, ACCOUNT SERVICES REPRESENTATIVE.SALES CLERK FOOD [address] [place] [address] Specialty Supervisor [employer] Neurology 12/07/22 Rehab Liaison Relationship Specialty Start Date End Date Jesus Manuel Freitas, DO [address] [place] [address] PCP - General 02/21/15 Kailyn Donald, ACCOUNT SERVICES REPRESENTATIVE.SALES CLERK FOOD [address] [place] [address] Specialty Supervisor [employer] Neurology 09/09/22 Gissell Hunt, ACCOUNT SERVICES REPRESENTATIVE.SALES CLERK FOOD [address] [place] [address] Specialty Supervisor [employer] Neurology 12/07/22 Rehab Liaison Relationship Specialty Start Date End Date Jesus Manuel Freitas DO [address] [place] [address] PCP - General 02/21/15 Kailyn Donald, ACCOUNT SERVICES REPRESENTATIVE.SALES CLERK FOOD [address] [place] [address] Specialty Supervisor [employer] Neurology 09/09/22 Gissell Hunt, ACCOUNT SERVICES REPRESENTATIVE.SALES CLERK FOOD [address] [place] [address] Specialty Supervisor [employer] Neurology 12/07/22 Rehab Liaison Relationship Specialty Start Date End Date Jesus Manuel Freitas DO [address] [place] [address] PCP - General 02/21/15 Kailyn Donald, ACCOUNT SERVICES REPRESENTATIVE.SALES CLERK FOOD [address] [place] [address] Specialty Supervisor [employer] Neurology 09/09/22 Gissell Hunt, ACCOUNT SERVICES REPRESENTATIVE.SALES CLERK FOOD [address] [place] [address] Specialty Supervisor [employer] Neurology 12/07/22 Rehab Liaison Relationship Specialty Start Date End Date Jesus Manuel Freitas DO [address] [place] [address] PCP - General 02/21/15 Kailyn Donald, ACCOUNT SERVICES REPRESENTATIVE.SALES CLERK FOOD [address] [place] [address] Specialty Supervisor [employer] Neurology 09/09/22 Gissell Hunt, ACCOUNT SERVICES REPRESENTATIVE.SALES CLERK FOOD [address] [place], [place] [id number] Specialty Supervisor [employer] Neurology 12/07/22 Rehab Liaison Relationship Specialty Start Date End Date Jesus Manuel Freitas Bairon DO [address] [place] [address] PCP - General 02/21/15 Kailyn Donald, ACCOUNT SERVICES REPRESENTATIVE.SALES CLERK FOOD [address] [place] [address] Specialty Supervisor [employer] Neurology 09/09/22 Gissell Hunt, ACCOUNT SERVICES REPRESENTATIVE.SALES CLERK FOOD [address] [place] [address] Specialty Supervisor [employer] Neurology 12/07/22 Team Status: Active Member Role [...] Dr. Tony Mayer MD Other Provider Active Rehab Liaison Relationship Specialty Start Date End Date Jesus Manuel Freitas, DO [address] [place] [address] PCP - General 02/21/15 Kailyn Donald, ACCOUNT SERVICES REPRESENTATIVE.SALES CLERK FOOD [address] [place] [address] Specialty Supervisor [employer] Neurology 09/09/22 Gissell Hunt, ACCOUNT SERVICES REPRESENTATIVE.SALES CLERK FOOD [address] [place], [place] [id number] Specialty Supervisor [employer] Neurology 12/07/22 Rehab Liaison Relationship Specialty Start Date End Date [place] Jesus Manuel Bairon DO [address] [place] [address] PCP - General 02/21/15 Kailyn Donald, ACCOUNT SERVICES REPRESENTATIVE.SALES CLERK FOOD [address] [place] [address] Specialty Supervisor [employer] Neurology 09/09/22 Gissell Hunt, ACCOUNT SERVICES REPRESENTATIVE.SALES CLERK FOOD [address] [place], [place] [address] Specialty Supervisor [employer] Neurology 12/07/22 Team Status: Active Member Role [...] Levin , DO Attending Provider, Emergency P roildader Active Team Status: Inactive Member Role Status [...] Provider, At tending Provider, Referring Provider Active Rehab Liaison Relationship Specialty Start Date End Date Jesus Manuel Freitas DO [address] [place] [address] PCP - General 02/21/15 Kailyn Donald, ACCOUNT SERVICES REPRESENTATIVE.SALES CLERK FOOD [address] [place] [address] Specialty Supervisor [employer] Neurology 09/09/22 Gissell Hunt, ACCOUNT SERVICES REPRESENTATIVE.SALES CLERK FOOD [address] [place], [place] [id number] Specialty Supervisor [employer] Neurology 12/07/22 Sherif Ramirez MD [address] [place] [address] Specialty Supervisor [employer] Neurology 11/10/23 Rehab Liaison Relationship Specialty Start Date End Date Rick Muñoz ACCOUNT SERVICES REPRESENTATIVE - SALES CLERK FOOD [address] [place] [address] PCP - General Nurse Practitioner 06/16/24 Rehab Liaison Relationship Specialty Start Date End Date Rick Muñoz APRN - SALES CLERK FOOD [facility] [place] [address] PCP - General Nurse Practitioner 06/16/24 Rehab Liaison Relationship Specialty Start Date End Date Rick Muñoz ACCOUNT SERVICES REPRESENTATIVE - SALES CLERK FOOD [address] [place] [address] PCP - General Nurse Practitioner 06/16/24 Rehab Liaison Relationship Specialty Start Date End Date Jesus Manuel Freitas DO [address] [place] [address] PCP - General 02/21/15 Kailyn Donald, ACCOUNT SERVICES REPRESENTATIVE.SALES CLERK FOOD [address] [place] [address] Specialty Supervisor [employer] Neurology 09/09/22 Gissell Hunt ACCOUNT SERVICES REPRESENTATIVE.SALES CLERK FOOD [address] [place] [address] Specialty Supervisor [employer] Neurology 12/07/22 Sherif Ramirez MD [address] [place], [place] [id number] Specialty Supervisor [employer] Neurology 11/10/23 Rehab Liaison Relationship Specialty Start Date End Date Marci Lopez [address] [place] [address] PCP - General Family Medicine 07/20/24 Rehab Liaison Relationship Specialty Start Date End Date Jesus Manuel Freitas DO [address] [place], [place] [id number] PCP - General 02/21/15 Kailyn Donald, ACCOUNT SERVICES REPRESENTATIVE.SALES CLERK FOOD [address] [place], [place] [id number] Specialty Supervisor [employer] Neurology 09/09/22 Gissell Hunt, ACCOUNT SERVICES REPRESENTATIVE.SALES CLERK FOOD [address] [place], [place] [id number] Specialty Supervisor [employer] Neurology 12/07/22 Sherif Ramirez MD [address] [place] [address] Specialty Supervisor [employer] Neurology 11/10/23 Rehab Liaison Relationship Specialty Start Date End Date Rick Muñoz ACCOUNT SERVICES REPRESENTATIVE - SALES CLERK FOOD [address] [place] [address] PCP - General Nurse Practitioner 06/16/24 07/19/24 Marci Lopez [address] [place] [address] PCP - General Family Medicine 07/20/24 Rehab Liaison Relationship Specialty Start Date End Date Marci Lopez [address] [place] [address] PCP - General Family Medicine 07/20/24 Rehab Liaison Relationship Specialty Start Date End Date Marci Lopez [address] [place] [address] PCP - General Family Medicine 07/20/24 Rehab Liaison Relationship Specialty Start [place] [address] [place] [id number] PCP - General 02/21/15 Kailyn Donald APRN.SALES CLERK FOOD [address] [place], [place] [id number] Specialty Supervisor [employer] Neurology 09/09/22 Gissell Hunt APRN.SALES CLERK FOOD [address] [place] [address] Specialty Supervisor [employer] Neurology 12/07/22 Sherif Ramirez MD [address] [place] [address] Specialty Supervisor [employer] Neurology 11/10/23 Rehab Liaison Relationship Specialty Start Date End Date Marci Lopez [address] [place] [address] PCP - General Family Medicine 07/20/24 Rehab Liaison Relationship Specialty Start Date End Date Marci Lopez [address] [place] [address] PCP - General Family Medicine 07/20/24 Rehab Liaison Relationship Specialty Start Date End Date Jesus Manuel Freitas DO [address] [place], [place] [id number] PCP - General 02/21/15 Kailyn Donald, ACCOUNT SERVICES REPRESENTATIVE.SALES CLERK FOOD [address] [place] [address] Specialty Supervisor [employer] Neurology 09/09/22 Gissell Hunt, ACCOUNT SERVICES REPRESENTATIVE.SALES CLERK FOOD [address] [place] [address] Specialty Supervisor [employer] Neurology 12/07/22 Sherif Ramirez MD [address] [place] [address] Specialty Supervisor [employer] Neurology 11/10/23 Rehab Liaison Relationship Specialty Start Date End Date Jesus Manuel Freitas DO [address] [place] [address] PCP - General 02/21/15 Kailyn Donald, ACCOUNT SERVICES REPRESENTATIVE.SALES CLERK FOOD [address] [place] [address] Specialty Supervisor [employer] Neurology 09/09/22 Gissell Hunt, ACCOUNT SERVICES REPRESENTATIVE.SALES CLERK FOOD [address] [place] [address] Specialty Supervisor [employer] Neurology 12/07/22 Sherif Ramirez MD [address] [place] [address] Specialty Supervisor [employer] Neurology 11/10/23 Rehab Liaison Relationship Specialty Start Date End Date Marci [place] [phone] PCP - General Family Medicine 07/20/24 Rehab Liaison Relationship Specialty Start Date End Date Jesus Manuel Freitas DO [address] [place], [place] [address] PCP - General 02/21/15 Kailyn Donald, ACCOUNT SERVICES REPRESENTATIVE.SALES CLERK FOOD [address] [place] [address] Specialty Supervisor [employer] Neurology 09/09/22 Gissell Hunt ACCOUNT SERVICES REPRESENTATIVE.SALES CLERK FOOD [address] [place] [address] Specialty Supervisor [employer] Division Neurology 12/07/22 Sherif Ramirez MD [address] [place] [address] Specialty Supervisor [employer] Neurology 11/10/23 Rehab Liaison Relationship Specialty Start Date End Date Jesus Manuel Freitas DO [address] [place] [address] PCP - General 02/21/15 Kailyn Donald, ACCOUNT SERVICES REPRESENTATIVE.SALES CLERK FOOD [address] [place] [address] Specialty Supervisor [employer] Neurology 09/09/22 Gissell Hunt ACCOUNT SERVICES REPRESENTATIVE.SALES CLERK FOOD [address] [place] [address] Specialty Supervisor [employer] Neurology 12/07/22 Sherif Ramirez MD [address] [place] [address] Specialty Supervisor [employer] Neurology 11/10/23 Rehab Liaison Relationship Specialty Start Date End Date Jesus Manuel Freitas DO [address] [place], [place] [address] PCP - General 02/21/15 Kailyn Donald, ACCOUNT SERVICES REPRESENTATIVE.SALES CLERK FOOD [address] [place] [address] Specialty Supervisor [employer] Division Neurology 09/09/22 Gissell Hunt, ACCOUNT SERVICES REPRESENTATIVE.SALES CLERK FOOD [address] [place] [address] Specialty Supervisor [employer] Division Neurology 12/07/22 Sherif Ramirez MD [address] [place] [address] Specialty Supervisor [employer] Division Neurology 11/10/23 Rehab Liaison Relationship Specialty Start Date End Date Jesus Manuel Freitas DO [address] [place] [address] PCP - General 02/21/15 Kailyn Donald, ACCOUNT SERVICES REPRESENTATIVE.SALES CLERK FOOD [address] [place] [address] Specialty Supervisor [employer] Division Neurology 09/09/22 Gissell Hunt, ACCOUNT SERVICES REPRESENTATIVE.SALES CLERK FOOD [address] [place] [address] Specialty Supervisor [employer] Neurology 12/07/22 Sherif Ramirez MD [address] [place] [address] Specialty Supervisor [employer] Division Neurology 11/10/23 Rehab Liaison Relationship Specialty Start Date End Date Jesus Manuel Freitas DO [address] [place] [address] PCP - General 02/21/15 Kailyn Donald, ACCOUNT SERVICES REPRESENTATIVE.SALES CLERK FOOD [address] [place] [address] Specialty Supervisor [employer] Division Neurology 09/09/22 Gissell Hunt, ACCOUNT SERVICES REPRESENTATIVE.SALES CLERK FOOD [address] [place] [address] Specialty Supervisor [employer] Neurology 12/07/22 Sherif Ramirez MD [address] [place] [address] Specialty Supervisor [employer] Neurology 11/10/23 Team Status: Active Member Role [...] March 10, 2025 End: March 10, 2025 Rehab Liaison Relationship Specialty Start Date End Date Jesus Manuel Freitas DO [address] [place] [address] PCP - General 02/21/15 Kailyn Donald, ACCOUNT SERVICES REPRESENTATIVE.SALES CLERK FOOD [address] [place], [place] [address] Specialty Supervisor [employer] Division Neurology 09/09/22 Gissell Hunt, ACCOUNT SERVICES REPRESENTATIVE.SALES CLERK FOOD [address] [place], [place] [id number] Specialty Supervisor [employer] Division Neurology 12/07/22 Sherif Ramirez MD [address] [place] [address] Specialty Supervisor [employer] Neurology 11/10/23 Team Status: Inactive Member Role [...] 2025 End: February 13, 2025 Dr. Marci Brie John , DO Referring Provider Activ e Start: February 13, 2025 End: February 13, 2025 Mayte Burch NP, ROAD EQUIPMENT OPERATOR-C Attending Provider Active Start: February 13, 2025 [...] 03, 2025 End: May 03, 2025 Dr. Dainsh Tavarez MD Referring Provider Active S tart: [...] End: February 13, 2025 Mayte Burch NP, ROAD EQUIPMENT OPERATOR-C Attending Provider Active Start: February 13, 2025 [...] 2025 End: February 13, 2025 Dr. Marci Brie John , DO Referring Provider Activ e Start: February 13, 2025 End: February 13, 2025 Mayte Burch NP, ROAD EQUIPMENT OPERATOR-C Attending Provider Active Start: February 13, 2025 [...] tive Start: April 25, 2025 Dr. Marci Lpoez DO Referring Provider Activ e Start: April [...] May 30, 2025 End: May 30, 2025 Rehab Liaison Relationship Specialty Start Date End Date Marci Lopez [address] [place] [id number] PCP - General Family Medicine 07/20/24 Team Status: Active Member Role/Relationship Status Dates Dr. Marci Lopez DO Primary Care Provider Ac tive Start: June 02, 2025 Dr. Bossman Sanders , Emergency Provider Active S tart: June 02, 2025 Dr. Ben Johnson , Admit Provider Active S tart: June 02, 2025 Dr. Ben Johnson , Attending Provider Active Start: June 02, 2025 Team Status: Inactive Member Role/Relationship Status Dates Dr. Marci Brie John , DO Primary Care Provider Ac tive [...] Active S tart: June 09, 2025 Dr. Ganehs Kiran MD Attending Provider Active Start: June 09, 2025 Dr. Ganesh Kiran MD Other Provider Active Sta rt: June 09, 2025 Dr. Shan Lockett , DO Other Provider Active St art: June 09, 2025 Team Status: Active Member Role/Relationship Status Dates Dr. Marci Lopez , DO Primary Care Provider Ac tive Start: June 10, 2025 Dr. Bossman aSnders , DO Emergency Provider Active S tart: [...] Provider Active Start: June 11, 2025 Dr. Gaensh Kiran MD Other Provider Active Sta rt: [...] or prosecute any alcohol or drug abuse patient.[facility] HospitalIn the event this information is protected by the Federal Confidentiality of Alcohol and Drug Abuse Patient Records regulations: The Federal rules restrict any use of the information to criminally investigate or prosecute any alcohol or drug abuse patient.[facility] HospitalIn the event this information is protected by the Federal Confidentiality of Alcohol and Drug Abuse Patient Records regulations: The Federal rules restrict any use of the information to criminally investigate or prosecute any alcohol or drug abuse patient.[facility] HospitalIn the event this information is protected by the Federal Confidentiality of Alcohol and Drug Abuse Patient Records regulations: The Federal rules restrict any use of the information to criminally investigate or prosecute any alcohol or drug abuse patient.[facility] HospitalIn the event this information is protected by the Federal Confidentiality of Alcohol and Drug Abuse Patient Records regulations: The Federal rules restrict any use of the information to criminally investigate or prosecute any alcohol or drug abuse patient.[facility] HospitalIn the event this information is protected by the Federal Confidentiality of Alcohol and Drug Abuse Patient Records regulations: The Federal rules restrict any use of the information to criminally investigate or prosecute any alcohol or drug abuse patient.[facility] HospitalIn the event this information is protected by the Federal Confidentiality of Alcohol and Drug Abuse Patient Records regulations: The Federal rules restrict any use of the information to criminally investigate or prosecute any alcohol or drug abuse patient.[facility] HospitalIn the event this information is protected by the Federal Confidentiality of Alcohol and Drug Abuse Patient Records regulations: The Federal rules restrict any use of the information to criminally investigate or prosecute any alcohol or drug abuse patient.[facility] HospitalIn the event this information is protected by the Federal Confidentiality of Alcohol and Drug Abuse Patient Records regulations: The Federal rules restrict any use of the information to criminally investigate or prosecute any alcohol or drug abuse patient.[facility] HospitalIn the event this information is protected by the Federal Confidentiality of Alcohol and Drug Abuse Patient Records regulations: The Federal rules restrict any use of the information to criminally investigate or prosecute any alcohol or drug abuse patient.[facility] HospitalIn the event this information is protected by the Federal Confidentiality of Alcohol and Drug Abuse Patient Records regulations: The Federal rules restrict any use of the information to criminally investigate or prosecute any alcohol or drug abuse patient.[facility] HospitalIn the event this information is protected by the Federal Confidentiality of Alcohol and Drug Abuse Patient Records regulations: The Federal rules restrict any use of the information to criminally investigate or prosecute any alcohol or drug abuse patient.[facility] HospitalIn the event this information is protected by the Federal Confidentiality of Alcohol and Drug Abuse Patient Records regulations: The Federal rules restrict any use of the information to criminally investigate or prosecute any alcohol or drug abuse patient.[facility] HospitalIn the event this information is protected by the Federal Confidentiality of Alcohol and Drug Abuse Patient Records regulations: The Federal rules restrict any use of the information to criminally investigate or prosecute any alcohol or drug abuse patient.[facility] HospitalIn the event this information is protected by the Federal Confidentiality of Alcohol and Drug Abuse Patient Records regulations: The Federal rules restrict any use of the information to criminally investigate or prosecute any alcohol or drug abuse patient.[facility] HospitalIn the event this information is protected by the Federal Confidentiality of Alcohol and Drug Abuse Patient Records regulations: The Federal rules restrict any use of the information to criminally investigate or prosecute any alcohol or drug abuse patient.[facility] HospitalIn the event this information is protected by the Federal Confidentiality of Alcohol and Drug Abuse Patient Records regulations: The Federal rules restrict any use of the information to criminally investigate or prosecute any alcohol or drug abuse patient.[facility] HospitalIn the event this information is protected by the Federal Confidentiality of Alcohol and Drug Abuse Patient Records regulations: The Federal rules restrict any use of the information to criminally investigate or prosecute any alcohol or drug abuse patient.[facility] HospitalIn the event this information is protected by the Federal Confidentiality of Alcohol and Drug Abuse Patient Records regulations: The Federal rules restrict any use of the information to criminally investigate or prosecute any alcohol or drug abuse patient.[facility] HospitalIn the event this information is protected by the Federal Confidentiality of Alcohol and Drug Abuse Patient Records regulations: The Federal rules restrict any use of the information to criminally investigate or prosecute any alcohol or drug abuse patient.[facility] HospitalIn the event this information is protected by the Federal Confidentiality of Alcohol and Drug Abuse Patient Records regulations: The Federal rules restrict any use of the information to criminally investigate or prosecute any alcohol or drug abuse patient.[facility] HospitalIn the event this information is protected by the Federal Confidentiality of Alcohol and Drug Abuse Patient Records regulations: The Federal rules restrict any use of the information to criminally investigate or prosecute any alcohol or drug abuse patient.[facility] HospitalIn the event this information is protected by the Federal Confidentiality of Alcohol and Drug Abuse Patient Records regulations: The Federal rules restrict any use of the information to criminally investigate or prosecute any alcohol or drug abuse patient.[facility] HospitalIn the event this information is protected by the Federal Confidentiality of Alcohol and Drug Abuse Patient Records regulations: The Federal rules restrict any use of the information to criminally investigate or prosecute any alcohol or drug abuse patient.[facility] HospitalIn the event this information is protected by the Federal Confidentiality of Alcohol and Drug Abuse Patient Records regulations: The Federal rules restrict any use of the information to criminally investigate or prosecute any alcohol or drug abuse patient.[facility] HospitalIn the event this information is protected by the Federal Confidentiality of Alcohol and Drug Abuse Patient Records regulations: The Federal rules restrict any use of the information to criminally investigate or prosecute any alcohol or drug abuse patient.[facility] HospitalIn the event this information is protected by the Federal Confidentiality of Alcohol and Drug Abuse Patient Records regulations: The Federal rules restrict any use of the information to criminally investigate or prosecute any alcohol or drug abuse patient.[facility] HospitalIn the event this information is protected by the Federal Confidentiality of Alcohol and Drug Abuse Patient Records regulations: The Federal rules restrict any use of the information to criminally investigate or prosecute any alcohol or drug abuse patient.[facility] HospitalIn the event this information is protected by the Federal Confidentiality of Alcohol and Drug Abuse Patient Records regulations: The Federal rules restrict any use of the information to criminally investigate or prosecute any alcohol or drug abuse patient.[facility] HospitalIn the event this information is protected by the Federal Confidentiality of Alcohol and Drug Abuse Patient Records regulations: The Federal rules restrict any use of the information to criminally investigate or prosecute any alcohol or drug abuse patient.[facility] HospitalIn the event this information is protected by the Federal Confidentiality of Alcohol and Drug Abuse Patient Records regulations: The Federal rules restrict any use of the information to criminally investigate or prosecute any alcohol or drug abuse patient.[facility] HospitalIn the event this information is protected by the Federal Confidentiality of Alcohol and Drug Abuse Patient Records regulations: The Federal rules restrict any use of the information to criminally investigate or prosecute any alcohol or drug abuse patient.[facility] HospitalIn the event this information is protected by the Federal Confidentiality of Alcohol and Drug Abuse Patient Records regulations: The Federal rules restrict any use of the information to criminally investigate or prosecute any alcohol or drug abuse patient.[facility] HospitalIn the event this information is protected by the Federal Confidentiality of Alcohol and Drug Abuse Patient Records regulations: The Federal rules restrict any use of the information to criminally investigate or prosecute any alcohol or drug abuse patient.[facility] HospitalIn the event this information is protected by the Federal Confidentiality of Alcohol and Drug Abuse Patient Records regulations: The Federal rules restrict any use of the information to criminally investigate or prosecute any alcohol or drug abuse patient.[facility] HospitalIn the event this information is protected by the Federal Confidentiality of Alcohol and Drug Abuse Patient Records regulations: The Federal rules restrict any use of the information to criminally investigate or prosecute any alcohol or drug abuse patient.[facility] HospitalIn the event this information is protected by the Federal Confidentiality of Alcohol and Drug Abuse Patient Records regulations: The Federal rules restrict any use of the information to criminally investigate or prosecute any alcohol or drug abuse patient.[facility] HospitalIn the event this information is protected by the Federal Confidentiality of Alcohol and Drug Abuse Patient Records regulations: The Federal rules restrict any use of the information to criminally investigate or prosecute any alcohol or drug abuse patient.[facility] HospitalIn the event this information is protected by the Federal Confidentiality of Alcohol and Drug Abuse Patient Records regulations: The Federal rules restrict any use of the information to criminally investigate or prosecute any alcohol or drug abuse patient.[facility] HospitalIn the event this information is protected by the Federal Confidentiality of Alcohol and Drug Abuse Patient Records regulations: The Federal rules restrict any use of the information to criminally investigate or prosecute any alcohol or drug abuse patient.[facility] HospitalIn the event this information is protected by the Federal Confidentiality of Alcohol and Drug Abuse Patient Records regulations: The Federal rules restrict any use of the information to criminally investigate or prosecute any alcohol or drug abuse patient.[facility] Reason for Visit (unrecogniz ed section and content) Reason Onset Date Comments Question 02/05/2022 medication Reason Onset Date Comments Refill Request 05/01/2022 Reason Comments Follow Up Reason Comments New Patient tremor of left hand Specialty Diagnoses / Procedures Referred By Contac t Referred To Contact Neurology Diagnoses Tremor of left hand Procedures CONSULT TO NEUROLOGY OFFICE/OUTPATIENT [facility] 60-74 MINUTES Ghazala Gusman MD [address] [id number] Referral ID Status Reason Start Date Expiration Date V isits Requested Visits Authorized [id number] Closed PCP Requested Referral 06/04/2022 06/04/2023 1 1 Reason Comments Established Patient Specialty Diagnoses / Procedures Referred By Contac t Referred To Contact Diagnoses Tremor of left hand Procedures PROVIDER ORDERED FOLLOW UP OFFICE/OUTPATIENT [facility] 60-74 MINUTES Sherif Ramirez MD [address] [id number] Referral ID Status Reason Start Date Expiration Date V isits Requested Visits Authorized [id number] Closed PCP Requested Referral 06/23/2022 06/23/2023 1 [...] AREA 1 DAY IMAGING Sherif Ramirez MD [address] [place] [address] Molecular & Functional Imaging [address] [place] [address] Referral ID Status Reason Start Date Expiration Date V isits Requested Visits Authorized [id number] Closed Auto-Generate d Referral 07/01/2023 07/30/2024 1 1 Reason Comments Established Patient Reason Onset Date Comments Other 06/28/2024 Morgan Document ation Reason Onset Date Comments Release [...] OFFICE SCHEDULED ORDER IN SCANNED DOCS AUTH# [id number] GOOD 08/01/24-09/30/[address] ATTENUATION SKULL BASE MID-THIGH PET CT Kalen Izaguirre MD [address] [facility] [address] [place] [address] [facility] [address] [facility] [place] [address] Referral ID Status Reason Start Date Expiration Date Visits Re quested Visits Authorized [id number] Closed 08/01/2024 09/30/2024 1 1 Reason Onset [...] Role: Primary Care Physician Address: Address: [address] [place] [address] Name: JAC CHRISTENSEN MD Position: P4 Physician - Cardiology Med Service: Active Provider Member Role: Aviation Survival Technician Address: Address: [address] [place] [address] Care Team Related Persons Name: SONG PENA Address: Home [address] [place], [place] [id number] Care Team Personnel Name: LARY WHEAT DO Position: P4 Physician - Primary Care Med Service: Active Provider Member Role: Primary Care Physician Address: Address: [address] [place] [address] Name: JAC CHRISTENSEN MD Position: P4 Physician - Cardiology Med Service: Active Provider Member Role: Aviation Survival Technician Address: Address: [address] [place] [address] Care Team Related Persons Name: SONG PENA Address: Home [address], [place] [id number] Care Team Personnel Name: LARY WHEAT DO Position: P4 Physician - Primary Care Med Service: Active Provider Member Role: Primary Care Physician Address: Address: [address] [place] [phone] [place] [address] Name: JAC CHRISTENSEN MD Position: P4 Physician - Cardiology Med Service: Active Provider Member Role: Aviation Survival Technician Address: Address: [address] [place] [address] Care Team Related Persons Name: SONG PENA Address: Home [address] [place], [place] [id number] Care Team Personnel Name: LARY WHEAT DO Position: P4 Physician - Primary Care Med Service: Active Provider Member Role: Primary Care Physician Address: Address: [facility] [place], [place] [phone] [place] [address] Name: JAC CHRISTENSEN MD Position: P4 Physician - Cardiology Med Service: Active Provider Member Role: Aviation Survival Technician Address: Address: [address] [place] [address] [address] [id number]- Care Team Related Persons Name: SONG PENA Address: Home [address] [place], [place] [id number] Care Team Personnel Name: LARY WHEAT DO Position: P4 Physician - Primary Care Member Role: Primary Care Physician Address: Address: [address] [place] [phone] [place] [address] Name: JAC CHRISTENSEN MD Position: P4 Physician - Cardiology Address: Address: [address] [place] [address] [address] [id number]- Care Team Related Persons Name: SONG PENA Address: Home [address] [place], [place] [phone] Care Team Personnel Name: LARY WHEAT DO Position: P4 Physician - Primary Care Med Service: Active Provider Member Role: Primary Care Physician Address: Address: [address] [place] [address] [place] Name: JAC CHRISTENSEN MD Position: P4 Physician - Cardiology Med Service: Active Provider Member Role: Aviation Survival Technician Address: Address: [address] [place] [address] [address] [id number]- Care Team Related Persons Name: SONG PENA Address: Home [address] [place], [place] [id number] Care Team Personnel Name: LARY WHEAT DO Position: P4 Physician - Primary Care Med Service: Active Provider Member Role: Primary Care Physician Address: Address: [address] [place] [phone] [place] [address] Name: JAC CHRISTENSEN MD Position: P4 Physician - Cardiology Med Service: Active Provider Member Role: Aviation Survival Technician Address: Address: [address] [facility] [address] [place] [address]- [place] Care Team Related Persons Name: SONG PENA Address: Home [address] [place], [place] [id number] Care Team Personnel Name: LARY WHETA DO Position: P4 Physician - Primary Care Member Role: Primary Care Physician Address: Address: [address] [place] [address]- [place] Name: JAC CHRISTENSEN MD Position: P4 Physician - Cardiology Member Role: Aviation Survival Technician Address: Address: [address] [facility] [place] [address] [address]- [place] Care Team Related Persons Name: SONG PENA Address: Home [address] [place], [place] [id number] Care Team Personnel Name: LARY WHEAT DO Position: P4 Physician - Primary Care Member Role: Primary Care Physician Address: Address: [address] [place] [address]- [place] Name: JAC CHRISTENSEN MD Position: P4 Physician - Cardiology Member Role: Aviation Survival Technician Address: Address: [address] [facility] [place] [address] [address]- [place] Care Team Related Persons Name: SONG PENA Address: Home [address] [place], [place] [id number] Care Team Personnel Name: LARY WHEAT DO Position: P4 Physician - Primary Care Member Role: Primary Care Physician Address: Address: [address] [place] [address]- Name: JAC CHRISTENSEN MD Position: P4 Physician - Cardiology Member Role: Aviation Survival Technician Address: Address: [address] [facility] [address] [place] [address] [place] Care Team Related Persons Name: SONG PENA Address: Home [address] [place], [place] [phone] Care Team Personnel Name: LARY WHEAT DO Position: P4 Physician - Primary Care Member Role: Primary Care Physician Address: Address: [address] [place] [address]- Name: JAC CHRISTENSEN MD Position: P4 Physician - Cardiology Member Role: Aviation Survival Technician Address: Address: [address] [place], [place] [phone]- Care Team Related Persons Name: JOSE SONG Address: Home [address] [place], [place] [phone] Care Team Personnel Name: LARY WHEAT DO Position: P4 Physician - Primary Care Member Role: Primary Care Physician Address: Address: [address] [place] [address]- Name: JAC CHRISTENSEN MD Position: P4 Physician - Cardiology Member Role: Aviation Survival Technician Address: Address: [address] [place], [place] [phone]- Care Team Related Persons Name: SONG PENA Address: Home [address] [place], [place] [phone] Care Team Personnel Name: LARY WHEAT DO Position: P4 Physician - Primary Care Member Role: Primary Care Physician Address: Address: [address] [place] [address]- Name: JAC CHRISTENSEN MD Position: P4 Physician - Cardiology Member Role: Aviation Survival Technician Address: Address: [address] [place] [address]- Care Team Related Persons Name: SONG PENA Address: Home [address], [place] [phone] Care Team Personnel Name: ADRIENNE BYERS DO Position: P4 Physician - Primary Care Member Role: Primary Care Physician Address: Address: [address] [place] [address]- Name: JAC CHRISTENSEN MD Position: P4 Physician - Cardiology Member Role: Aviation Survival Technician Address: Address: [facility] [address] [facility] [place] [address]- Care Team Related Persons Name: SONG PENA Address: Home [address] [place], [place] [phone] Goals (unrecognized section and content) Goals may [...] BE BASED ON THE PRIMARY CLINICAL RECORDS. [facility]. provides no warranty or guarantee of the accuracy or completeness of information in this document.
[2025-07-01 20:08] LABS: Troponin T High Sens 2 HR 12 ng/L (<=14)
[2025-07-01 22:24] LABS: Troponin T High Sens 4 HR 15 ng/L (<=14)
[2025-07-01] MEDS: 0.9% Normal Saline (1000mL) 1,000 ML 150 ML IV (22:29)
[2025-07-01] MEDS: 0.9% Saline Lock 10 ML Syringe IV ×2 (22:31→22:46)
[2025-07-02 04:00] VITALS: BP 146/57; PULSE 63; RESP 18; TEMP 36.6; O2SAT 97
[2025-07-02 07:58] VITALS: BP 113/59; PULSE 65; RESP 16; TEMP 37; O2SAT 95
[2025-07-02] MEDS: Glucerna Shake 120 ML LIQUID PO (08:29)
[2025-07-02] MEDS: Polyethylene Glycol 3350 17 GM PACKET PO (08:32)
--- NOTE | 2025-07-02 09:51 | PCM.PN.HOSP ---
Subjective Subjective Doing well, no issues overnight Objective Data Objective Data Vital Signs: Vital Signs Temp Pulse Resp BP Pulse Ox O2 Del Method O2 Flow Rate 98.6 F 65 16 113/59 L 95 Room Air 2 07/02/25 07:58 07/02/25 07:58 07/02/25 07:58 07/02/25 07:58 07/02/25 07:58 07/02/25 07:58 07/02/25 04:00 Oxygen Flow Rate (L/min) 2 Oxygen Delivery Method Room Air Weight: 118 lb 9.739 oz Body Mass Index (BMI) 18.0 Intake & Output: Intake and Output for Last 24 Hours 07/01/25 07/02/25 07/03/25 03:59 03:59 03:59 Intake Total 1000 / 1000 Balance 1000 / 1000 Lab / Micro Data 07/01/25 17:12 07/01/25 17:12 Labs: Laboratory Results - last 24 hr 07/01/25 17:12: WBC 4.0 L, RBC 3.46 L, Hgb 10.3 L, Hct 31.8 L, MCV 91.9, MCH 29.8, MCHC 32.4, RDW Std Deviation 44.8 H, RDW Coeff of Edita 13.2, Plt Count 192, MPV 10.6, Immature Gran % (Auto) 0.200, Neut % (Auto) 49.2, Lymph % (Auto) 34.9, [place] % (Auto) 13.2 H, Eos % (Auto) 2.0, Baso % (Auto) 0.5, Absolute Neuts (auto) 2.0, Absolute Lymphs (auto) 1.40, Nucleated RBC % 0, D-Dimer Quant (PE/DVT) 1.39 H*, Sodium 140, Potassium 3.6, Chloride 108, Carbon Dioxide 24.6, Anion Gap 8, BUN 12, Creatinine 0.90, Estim Creat Clear Calc 50.57, Est GFR (MDRD) Non-Af 68, BUN/Creatinine Ratio 13.2, Glucose 100 H, Calcium 8.1, Troponin T High Sens 11, NT pro BNP II 948 H 07/01/25 19:30: Troponin T Hi Sens 2 Hr 12 07/01/25 21:40: Troponin T Hi Sens 4Hr 15 H Radiography Diagnostic Testing: Radiology Impression Chest X-Ray 07/01/25 17:37 IMPRESSION: Improvement in the bibasilar pulmonary opacities, compatible with pneumonitis/pneumonia. Reading Location: [facility] Chest CTA 07/01/25 18:03 IMPRESSION: 1. No evidence of pulmonary embolism. 2. Stable ground-glass opacities throughout the dependent and bibasilar lungs, compatible with pneumonitis/pneumonia. Clinical correlation recommended. Reading Location: [facility] Physical Exam Narrative General: Alert, Oriented x3, Cooperative, No apparent distress HEENT: Atraumatic, PERRLA, EOMI, Normocephalic Oral: Moist Mucosa Neck: Supple, No JVD Lungs: Diminished, Normal air movement, scattered rhonchi, No wheeze, No rales Cardiovascular: Regular rate, Regular Rhythm, Normal S1, Normal S2, No murmurs Abdomen: Soft, Non Tender, Non-Distended, No Hepato-splenomegaly Extremities: No edema, Capillary Refill Less than 3 Seconds Skin: No rashes, No breakdown Musculoskeletal: No Tenderness to Palpation of Joints or Extremities Neurological: No focal neurological deficits, moves all extremities, sensation intact Psych/Mental Status: Normal Affect, Appropriate Assessment & Plan Assessment/Plan (1) Failure to thrive: (2) Protein calorie malnutrition: PLAN: Plan 1. Adult failure to thrive with protein calorie malnutrition ? PT/OT ? Case management for discharge planning 2. History of CVA involving the left MCA/CAD/essential HTN/HLD/chronic systolic CHF ? Continue with her home blood pressure medications ? Continue with her home Lasix ? Continue with her home Crestor ? 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 COPD ? Not in exacerbation ? Continue with inhalers 4. DM2 ? Continue with her home metformin ? Will monitor and make adjustments as necessary 5. Anxiety/depression ? Stable ? Continue with her home medications 6. GERD ? Stable ? Continue with PPI DVT: Lovenox Charges/Coding Visit Charges Inpatient E&M: 79663 Subs Hosp L2
[2025-07-02 11:11] VITALS: BP 121/49; PULSE 67; RESP 16; TEMP 36.8; O2SAT 95
[2025-07-02 15:19] VITALS: BP 138/63; PULSE 70; RESP 16; TEMP 36.9; O2SAT 97
--- NOTE | 2025-07-02 16:03 | CASEMGMT ---
Social Work- SW met with pt and pt to discuss discharge planning. Pt and pt decline a list at this time and would like referrals to [facility] and [facility]. KIKA notified of referral request. ROXANA remains available to follow. EDUARDO Iglesias
--- NOTE | 2025-07-02 16:28 | CASEMGMT ---
Addendum entered by Danielle Casey 07/03/25 10:18: [facility] is foc. Both snfs updated and [facility] asked to submit for precert. Danielle Casey DC Planning Asst. Addendum entered by Danielle Casey 07/03/25 09:18: [facility] has accepted. updated. Danielle Casey DC Planning Asst. Addendum entered by Danielle Casey 07/02/25 16:36: [facility] has accepted. Danielle Casey DC Planning Asst. Original Note: Discharge Planning Referral sent to [facility] and [facility]. Danielle Casey DC Planning Asst.
[2025-07-02 20:59] VITALS: BP 157/68; PULSE 75; RESP 15; TEMP 36.9; O2SAT 94
[2025-07-03 02:50] VITALS: BP 129/63; PULSE 65; RESP 15; TEMP 36.7; O2SAT 94
[2025-07-03 06:02] LABS: Hematocrit 28.7 % (37-47); Hemoglobin 9.3 g/dL (12.0-15.0); Immature Granulocytes Count 0.000 X10^3/uL (0.0-0.0); Mean Corp Hgb Conc 32.4 g/dL (32-36); Mean Corpuscular Volume 92.9 fL (81-99); Mean Platelet Vol. 11.1 fl (6.2-12.0); NRBC Flagged by Analyzer 0 % (0-5); Platelet Count 155 K/mm3 (150-450); RBC Distribution Width CV 13.4 % (11.6-14.6); RBC Distribution Width SD 45.5 fl (35.1-43.9); Red Blood Count 3.09 M/mm3 (4.2-5.4); White Blood Count 3.3 K/mm3 (4.4-11.0)
[2025-07-03 06:25] LABS: Anion Gap 7 (5-15); BUN 10 mg/dL (4-19); BUN/Creat Ratio 10.9 RATIO (10-20); Calcium,Total 8.2 mg/dL (7.6-11.0); Carbon Dioxide 25.8 mmol/L (21.0-32.0); Chloride 106 mmol/L (98-108); Estimated Creatinine Clearance 47.46 ml/min (50-250); Glucose 86 mg/dL (70-99); Potassium 3.7 mmol/L (3.3-5.1)
[2025-07-03] MEDS: Polyethylene Glycol 3350 17 GM PACKET PO (07:53)
[2025-07-03] MEDS: Aspirin E.C. 81 MG Tablet PO (07:54)
--- NOTE | 2025-07-03 10:11 | CASEMGMT ---
Social Work- SW received notice that [facility] accepted referral. SW followed up with spouse. SW shared that it is anticipated that pt will not qualify for skillable service long per SNF admissions. SW request private pay rates, which were shared with pt and pt spouse. Pt spouse selected [facility] as [facility]. Precert started. [facility] notified of FOC. SW remains available to follow. Plan: [facility]; pend precert EDUARDO Iglesias
--- NOTE | 2025-07-03 10:52 | PCM.PN.HOSP ---
Subjective Subjective Feels little better than when she came in but still fairly weak and has poor appetite as she says food does not taste good. is investigating complications from long COVID Objective Data Objective Data Vital Signs: Vital Signs Temp Pulse Resp BP Pulse Ox O2 Del Method O2 Flow Rate 98.1 F 65 15 129/63 H 94 Room Air 2 07/03/25 02:50 07/03/25 02:50 07/03/25 02:50 07/03/25 02:50 07/03/25 02:50 07/03/25 08:00 07/02/25 04:00 Oxygen Flow Rate (L/min) 2 Oxygen Delivery Method Room Air Weight: 118 lb 9.739 oz Body Mass Index (BMI) 18.0 Intake & Output: Intake and Output for Last 24 Hours 07/02/25 07/03/25 07/04/25 03:59 03:59 03:59 Intake Total 1700 / 1700 Balance 1700 / 1700 Medical Nutrition Assessment Dietitian: Malnutrition Criteria Met Start: 07/02/25 14:18 Freq: Status: Active Protocol: Document 07/02/25 14:18 SLA (Rec: 07/02/25 14:18 SLA [id number]) Nutrition Malnutrition Evidence of Yes Malnutrition Exists Malnutrition (severe Acute Illness/Injury ): Evidenced By Suboptimal Energy Intake (Severe),Weight Loss (Severe), Physical Changes (Moderate) Clinical Problem Acute Disease or Injury Related Malnutrition Etiology related to issues w/ confusion/weakness and inadequate energy intake Signs/Symptoms as evidenced by po intake meeting <75% of est nutritional needs, unplanned wt loss of 7.6% x 3 weeks and fat/muscle wasting throughout body Status Active Problem Recommendation Dietitian Will continue liberal Regular diet w/ Ensure Plus High Recommendations/ Protein tid w/ meals as ordered - consistency per MEMBER SERVICES COORDINATOR Changes Will provide fortified foods at meals as able to help increase calorie/protein density of foods being consumed. Rec appetite stimulant to help encourage increased po intake at meals May need to consider supplemental nutrition support if po intake fails to improve and/or wt loss continues if in accordance w/ pt/family wishes. Lab / Micro Data 07/03/25 04:49 07/03/25 04:49 Labs: Laboratory Results - last 24 hr 07/03/25 04:49: WBC 3.3 L, RBC 3.09 L, Hgb 9.3 L, Hct 28.7 L, MCV 92.9, MCH 30.1, MCHC 32.4, RDW Std Deviation 45.5 H, RDW Coeff of Edita 13.4, Plt Count 155, MPV 11.1, Immature Gran % (Auto) 0.000, Neut % (Auto) 39.9 L, Lymph % (Auto) 43.3 H, [place] % (Auto) 13.1 H, Eos % (Auto) 3.4, Baso % (Auto) 0.3, Absolute Neuts (auto) 1.3 L, Absolute Lymphs (auto) 1.42, Nucleated RBC % 0, Sodium 139, Potassium 3.7, Chloride 106, Carbon Dioxide 25.8, Anion Gap 7, BUN 10, Creatinine 0.91, Estim Creat Clear Calc 47.46 L, Est GFR (MDRD) Non-Af 67, BUN/Creatinine Ratio 10.9, Glucose 86, Calcium 8.2 Physical Exam Narrative General: Alert, Oriented x3, Cooperative, No apparent distress HEENT: Atraumatic, PERRLA, EOMI, Normocephalic Oral: Moist Mucosa Neck: Supple, No JVD Lungs: Diminished, Normal air movement, scattered rhonchi, No wheeze, No rales Cardiovascular: Regular rate, Regular Rhythm, Normal S1, Normal S2, No murmurs Abdomen: Soft, Non Tender, Non-Distended, No Hepato-splenomegaly Extremities: No edema, Capillary Refill Less than 3 Seconds Skin: No rashes, No breakdown Musculoskeletal: No Tenderness to Palpation of Joints or Extremities Neurological: No focal neurological deficits, moves all extremities, sensation intact Psych/Mental Status: Flat Assessment & Plan Assessment/Plan (1) Failure to thrive: (2) Protein calorie malnutrition: PLAN: Plan 1. Adult failure to thrive with protein calorie malnutrition ? PT/OT ? Case management for discharge planning ? Appreciate nutrition's assistance 2. History of CVA involving the left MCA/CAD/essential HTN/HLD/chronic systolic CHF ? Continue with her home blood pressure medications ? Continue with her home Lasix ? Continue with her home Crestor ? 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 COPD ? Not in exacerbation ? Continue with inhalers 4. DM2 ? Continue with her home metformin ? Will monitor and make adjustments as necessary 5. Anxiety/depression ? Stable ? Continue with her home medications 6. GERD ? Stable ? Continue with PPI DVT: Lovenox Charges/Coding Visit Charges Inpatient E&M: 85237 Subs Hosp L2
[2025-07-03 16:00] VITALS: BP 142/70; PULSE 70; RESP 16; TEMP 36.8; O2SAT 97
[2025-07-03 21:20] VITALS: BP 167/76; PULSE 72; RESP 15; TEMP 36.7; O2SAT 98
[2025-07-03 21:51] VITALS: RESP 15; O2SAT 95
--- NOTE | 2025-07-03 21:57 | NURSING ---
07/03/25 @ 1930: per dayshift RN, pt ambulated on room air and pulse ox dropped to 85%.
[2025-07-04 03:42] VITALS: BP 134/58; PULSE 63; RESP 15; TEMP 36.7; O2SAT 100
[2025-07-04 06:18] LABS: Hematocrit 30.5 % (37-47); Hemoglobin 9.9 g/dL (12.0-15.0); Immature Granulocytes Count 0.010 X10^3/uL (0.0-0.0); Mean Corp Hgb Conc 32.5 g/dL (32-36); Mean Corpuscular Volume 92.4 fL (81-99); Mean Platelet Vol. 11.0 fl (6.2-12.0); NRBC Flagged by Analyzer 0 % (0-5); Platelet Count 151 K/mm3 (150-450); RBC Distribution Width CV 13.4 % (11.6-14.6); RBC Distribution Width SD 45.9 fl (35.1-43.9); Red Blood Count 3.30 M/mm3 (4.2-5.4); White Blood Count 3.4 K/mm3 (4.4-11.0)
--- NOTE | 2025-07-04 08:57 | PN.HOSP_ITS ---
Subjective Subjective Doing well, started on a little bit of oxygen overnight. Objective Data Objective Data Vital Signs: Vital Signs Temp Pulse Resp BP Pulse Ox O2 Del Method O2 Flow Rate 98.0 F 63 15 134/58 H 100 Nasal Cannula 2 07/04/25 03:42 07/04/25 03:42 07/04/25 03:42 07/04/25 03:42 07/04/25 03:42 07/04/25 03:51 07/04/25 03:51 Oxygen Flow Rate (L/min) 2 Oxygen Delivery Method Nasal Cannula Weight: 118 lb 9.739 oz Body Mass Index (BMI) 18.0 Intake & Output: Intake and Output for Last 24 Hours 07/03/25 07/04/25 07/05/25 03:59 03:59 03:59 Intake Total 1700 / 1700 690 / 690 Balance 1700 / 1700 690 / 690 Medical Nutrition Assessment Dietitian: Malnutrition Criteria Met Start: 07/02/25 14:18 Freq: Status: Active Protocol: Document 07/02/25 14:18 SLA (Rec: 07/02/25 14:18 SLA [id number]) Nutrition Malnutrition Evidence of Yes Malnutrition Exists Malnutrition (severe Acute Illness/Injury ): Evidenced By Suboptimal Energy Intake (Severe),Weight Loss (Severe), Physical Changes (Moderate) Clinical Problem Acute Disease or Injury Related Malnutrition Etiology related to issues w/ confusion/weakness and inadequate energy intake Signs/Symptoms as evidenced by po intake meeting <75% of est nutritional needs, unplanned wt loss of 7.6% x 3 weeks and fat/muscle wasting throughout body Status Active Problem Recommendation Dietitian Will continue liberal Regular diet w/ Ensure Plus High Recommendations/ Protein tid w/ meals as ordered - consistency per BUILDING MAINTENANCE SUPERVISOR Changes Will provide fortified foods at meals as able to help increase calorie/protein density of foods being consumed. Rec appetite stimulant to help encourage increased po intake at meals May need to consider supplemental nutrition support if po intake fails to improve and/or wt loss continues if in accordance w/ pt/family wishes. Lab / Micro Data 07/04/25 05:25 07/03/25 04:49 Labs: Laboratory Results - last 24 hr 07/04/25 05:25: WBC 3.4 L, RBC 3.30 L, Hgb 9.9 L, Hct 30.5 L, MCV 92.4, MCH 30.0, MCHC 32.5, RDW Std Deviation 45.9 H, RDW Coeff of Edita 13.4, Plt Count 151, MPV 11.0, Immature Gran % (Auto) 0.300, Neut % (Auto) 38.0 L, Lymph % (Auto) 44.0 H, [place] % (Auto) 13.0 H, Eos % (Auto) 4.4, Baso % (Auto) 0.3, Absolute Neuts (auto) 1.3 L, Absolute Lymphs (auto) 1.49, Nucleated RBC % 0 Physical Exam Narrative General: Alert, Oriented x3, Cooperative, No apparent distress HEENT: Atraumatic, PERRLA, EOMI, Normocephalic Oral: Moist Mucosa Neck: Supple, No JVD Lungs: Diminished, Normal air movement, no rhonchi, No wheeze, No rales Cardiovascular: Regular rate, Regular Rhythm, Normal S1, Normal S2, No murmurs Abdomen: Soft, Non Tender, Non-Distended, No Hepato-splenomegaly Extremities: No edema, Capillary Refill Less than 3 Seconds Skin: No rashes, No breakdown Musculoskeletal: No Tenderness to Palpation of Joints or Extremities Neurological: No focal neurological deficits, moves all extremities, sensation intact Psych/Mental Status: Flat Assessment & Plan Assessment/Plan (1) Failure to thrive: (2) Protein calorie malnutrition: PLAN: Plan 1. Adult failure to thrive with protein calorie malnutrition ? PT/OT ? Case management for discharge planning ? Appreciate nutrition's assistance ? Awaiting pre-CERT, delaying discharge due to awaiting insurance approval and facility acceptance 2. History of CVA involving the left MCA/CAD/essential HTN/HLD/chronic systolic CHF ? Continue with her home blood pressure medications ? Continue with her home Lasix ? Continue with her home Crestor ? 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 COPD ? Not in exacerbation ? Continue with inhalers 4. DM2 ? Continue with her home metformin ? Will monitor and make adjustments as necessary 5. Anxiety/depression ? Stable ? Continue with her home medications 6. GERD ? Stable ? Continue with PPI DVT: Lovenox Charges/Coding Visit Charges Inpatient E&M: 71076 Subs Hosp L2
[2025-07-04 09:00] VITALS: BP 136/63; PULSE 67; RESP 16; TEMP 37; O2SAT 99
--- NOTE | 2025-07-04 09:12 | CASEMGMT ---
Discharge Planning Updates sent to [facility]. Precert remains pending. Danielle Casey DC Planning Asst.
[2025-07-04] MEDS: Polyethylene Glycol 3350 17 GM PACKET PO (09:28)
--- NOTE | 2025-07-04 09:40 | CASEMGMT ---
[facility] has obtained auth to admit. Danielle Casey DC Planning Asst.
--- NOTE | 2025-07-04 09:42 | TREXTCAR_ITS ---
Diet Diet Order/Speech Therapy: INPATIENT Hospital Diet / Speech Therapy Order(s) 07/01/25 21:12 Diet: Regular - General Food consistency:: Regular Liquid Consistency:: Regular/Thin Type of Dietary Supplement:: Ensure Plus High Protein Routine Orders/Code Status Routine Lab Work: CBC and BMP Code Status: Full Code DC O2, CPAP, BIPAP needs Home O2 Discharge instructions: No Therapies Physical Therapy: Eval and Treat Occupational Therapy: Eval and Treat Problem/Diagnosis (1) Failure to thrive: Status: Acute (2) Protein calorie malnutrition: Status: Acute Code(s): E46 - Unspecified protein-calorie malnutrition Plan 1. Adult failure to thrive with protein calorie malnutrition ? PT/OT ? Case management for discharge planning ? Appreciate nutrition's assistance ? Awaiting pre-CERT, delaying discharge due to awaiting insurance approval and facility acceptance 2. History of CVA involving the left MCA/CAD/essential HTN/HLD/chronic systolic CHF ? Continue with her home blood pressure medications ? Continue with her home Lasix ? Continue with her home Crestor ? 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 COPD ? Not in exacerbation ? Continue with inhalers 4. DM2 ? Continue with her home metformin ? Will monitor and make adjustments as necessary 5. Anxiety/depression ? Stable ? Continue with her home medications 6. GERD ? Stable ? Continue with PPI DVT: Lovenox Allergies/Procedures Done in Hospital Allergies No Known Allergies Allergy (Verified 07/01/25 16:40) Procedures: None Type of Care/Length of Stay Estimated LOS: Convalescent Care Less Than 30 days Type of Care Needed: Skilled Rehab Potential: Fair Prognosis: Fair Additional Orders/Day of Discharge Day of Discharge: 07/04/25 Dietary and Speech Recommendations Dietitian Recommendations/Changes: Will continue liberal Regular diet w/ Ensure Plus High Protein tid w/ meals as ordered - consistency per OUTSIDE SALES ACCOUNT REPRESENTATIVE Will provide fortified foods at meals as able to help increase calorie/protein density of foods being consumed. Rec appetite stimulant to help encourage increased po intake at meals May need to consider supplemental nutrition support if po intake fails to improve and/or wt loss continues if in accordance w/ pt/family wishes. Discharge Plan Admission Admit Date/Time: 07/01/25 19:22 Attending Provider: Camacho Aguilar Primary Care Provider: Marci Nuñez Consulting Providers: Jose Royal Discharge Orders/Prescriptions Prescriptions: Continued furosemide 20 mg tablet 20 mg PO QDAY PRN (Reason: for 2lb weight gain) metformin 500 mg tablet 500 mg PO BID lamotrigine 100 mg tablet 100 mg PO QDAY escitalopram oxalate 5 mg tablet 5 mg PO QDAY polyethylene glycol 3350 [Miralax] 17 gram/dose powder 17 g PO DAILY docusate sodium 100 mg capsule 100 mg PO DAILY Patient Comments: stopped 05/30/25 baclofen 5 mg tablet 5 mg PO DAILY Patient Comments: PRESCRIPTION FOR 4 TIMES DAILY ferrous sulfate [Feosol] 325 mg (65 mg iron) tablet 325 mg PO QDAY ondansetron 4 mg tablet,disintegrating 4 mg PO Q8H Qty: 30 3RF trazodone 50 MG tablet 50 mg PO DAILY clonazepam 1 MG tablet 1 mg PO QHS aspirin 81 mg tablet,delayed release (DR/EC) 81 mg PO .COMPLEX Rx Instructions: 81 mg orally EVERY OTHER DAY; rosuvastatin 20 mg tablet 20 mg PO QHS pantoprazole 40 mg Tablet,Delayed Release (Dr/Ec) 40 mg PO DAILY 30 Days Qty: 30 0RF phenazopyridine 100 mg tablet 100 mg PO TID PRN PRN (Reason: pain) lisinopril 10 mg Tablet 5 mg PO DAILY Qty: 30 0RF Rx Instructions: Hold for SBP less than 130 mmHg albuterol sulfate 90 mcg/actuation HFA aerosol inhaler 1 puff inhalation Q6H PRN PRN (Reason: shortness of breath or wheezing) hyoscyamine sulfate 0.125 mg tablet 0.125 mg PO TID PRN (Reason: dyspepsia) Qty: 90 2RF Discontinued Linzess 145 mcg capsule 145 mcg PO QAM Qty: 60 2RF Patient Comments: stopped 05/30/25 oxycodone 5 mg Tablet 5 mg PO Q6H PRN PRN (Reason: Pain Score 6-10) 7 Days Qty: 28 0RF Austedo XR 6 mg tablet extended release 24 hr 6 mg PO DAILY Patient Comments: stopped 06/02/25 Referrals / Follow Up: Marci Nuñez, [Primary Care Provider] - Disposition Disposition (needs filled in before D/C Order can be placed): [facility]
--- NOTE | 2025-07-04 10:06 | PHA.DC.MR.R ---
Pharmacy [place] Med Reconciliation Pharmacy Service has performed discharge medication reconciliation for this patient. The patient's discharge medication list was reviewed for discrepancies and discrepancies were resolved. Medications at Discharge Home Medications clonazepam 1 mg tablet 1 mg PO QHS anxiety 11/18/14 trazodone 50 mg tablet 50 mg PO DAILY Anxiety 11/18/14 aspirin 81 mg tablet,delayed release 81 mg PO .COMPLEX heart 10/01/23 rosuvastatin 20 mg tablet 20 mg PO QHS cholesterol 02/21/24 furosemide 20 mg tablet 20 mg PO QDAY PRN for 2lb weight gain 06/13/24 escitalopram oxalate 5 mg tablet 5 mg PO QDAY Mood 11/28/24 polyethylene glycol 3350 17 gram/dose oral powder (Miralax) 17 g PO DAILY Constipation 11/28/24 lamotrigine 100 mg tablet 100 mg PO QDAY Anxiety 01/23/25 ferrous sulfate 325 mg (65 mg iron) tablet (Feosol) 325 mg PO QDAY Supplement 02/13/25 pantoprazole 40 mg tablet,delayed release 40 mg PO DAILY 30 days #30 tabs 04/30/25 baclofen 5 mg tablet 5 mg PO DAILY SPASCITY 05/29/25 docusate sodium 100 mg capsule 100 mg PO DAILY CONSTIPATION 05/29/25 metformin 500 mg tablet 500 mg PO BID Diabetes 05/29/25 ondansetron 4 mg disintegrating tablet 4 mg PO Q8H #30 tabs 05/30/25 phenazopyridine 100 mg tablet 100 mg PO TID PRN PRN pain 06/02/25 hyoscyamine sulfate 0.125 mg tablet 0.125 mg PO TID PRN dyspepsia #90 tabs 06/04/25 lisinopril 10 mg tablet 5 mg (1/2 x 10 mg) PO DAILY #30 tabs 06/11/25 albuterol sulfate 90 mcg/actuation aerosol inhaler 1 puff inhalation Q6H PRN PRN shortness of breath or wheezing 07/01/25
--- NOTE | 2025-07-04 10:28 | CASEMGMT ---
Social Work Precert has been obtained.? Physician updated and pt is ready for discharge today.? 7000 convalescent form completed in [facility].?DCA and bedside nurse notified of discharge time. DCA to complete all final arrangements and notifications. Disposition:[facility], skilled level of care under convalescent stay. EDUARDO Iglesias
--- NOTE | 2025-07-04 11:18 | CASEMGMT ---
Discharge Planning Discharge orders, signed med list, and transport time sent to [facility]. Physicians will transport pt by wheelchair at 11:15a. Nursing, SW, pt, and her updated. Danielle Casey DC Planning Asst.
--- NOTE | 2025-07-04 14:10 | PCM.DC.SUM ---
Providers Date of Admission: 07/01/25 Primary Care Physician: Dr. Marci Nuñez, Reason For Visit: FAILURE TO THRIVE Diagnosis Discharge Diagnosis (1) Failure to thrive: Status: Acute (2) Protein calorie malnutrition: Status: Acute Code(s): E46 - Unspecified protein-calorie malnutrition Medications at Discharge Home Medications clonazepam 1 mg tablet 1 mg PO QHS anxiety 11/18/14 trazodone 50 mg tablet 50 mg PO DAILY Anxiety 11/18/14 aspirin 81 mg tablet,delayed release 81 mg PO .COMPLEX heart 10/01/23 rosuvastatin 20 mg tablet 20 mg PO QHS cholesterol 02/21/24 furosemide 20 mg tablet 20 mg PO QDAY PRN for 2lb weight gain 06/13/24 escitalopram oxalate 5 mg tablet 5 mg PO QDAY Mood 11/28/24 polyethylene glycol 3350 17 gram/dose oral powder (Miralax) 17 g PO DAILY Constipation 11/28/24 lamotrigine 100 mg tablet 100 mg PO QDAY Anxiety 01/23/25 ferrous sulfate 325 mg (65 mg iron) tablet (Feosol) 325 mg PO QDAY Supplement 02/13/25 pantoprazole 40 mg tablet,delayed release 40 mg PO DAILY 30 days #30 tabs 04/30/25 baclofen 5 mg tablet 5 mg PO DAILY SPASCITY 05/29/25 docusate sodium 100 mg capsule 100 mg PO DAILY CONSTIPATION 05/29/25 metformin 500 mg tablet 500 mg PO BID Diabetes 05/29/25 ondansetron 4 mg disintegrating tablet 4 mg PO Q8H #30 tabs 05/30/25 phenazopyridine 100 mg tablet 100 mg PO TID PRN PRN pain 06/02/25 hyoscyamine sulfate 0.125 mg tablet 0.125 mg PO TID PRN dyspepsia #90 tabs 06/04/25 lisinopril 10 mg tablet 5 mg (1/2 x 10 mg) PO DAILY #30 tabs 06/11/25 albuterol sulfate 90 mcg/actuation aerosol inhaler 1 puff inhalation Q6H PRN PRN shortness of breath or wheezing 07/01/25 Hospital Course Operations None Procedures None Summary of Care Provided Minutes Spent on Discharge: 37 Hospital Course: Per HPI: BETTY CARO, is a 70 F who presents with weakness and shortness of breath. Patient was admitted from the to 11 June. Patient was found to have pneumonia and was discharged with Levaquin. 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 Per the , patient was doing too well to go to assisted facility so went home. While at home she has gradually regressed and is weaker. She has lost roughly 10 pounds. Over the past week. States that things do not taste good. She was checked for COVID last admission which was negative. The change in her taste and smell has happened recently after this most recent illness. But because of her weakness, and weight loss she was brought to the emergency room and the is exasperated and not able to safely care for her at this time. Hospital Course: 1. Adult failure to thrive with protein calorie malnutrition?70-year-old female brought from home due to increased weakness and shortness of breath. She does have a groundglass opacities on CT scan but no signs of pneumonia or UTI. Workup initially does not show any reason for for her physical decline, she does have a history of severe mood disorders and has been on multiple medications in the past that has caused dyskinesia. She is also had a previous CVA that leads to spasticity so she is on baclofen. All of these medications has led to sort of a flat affect. says that he has been able to work with physicians to reduce her medication list from 25 down to about 12 or 13. She worked with physical therapy and they recommended placement, she was accepted to SNF today and I discussed with her the plan for discharge and expressed understanding of the risks and benefits of going to the [facility] and would like to go today. 2. History of left MCA stroke, coronary artery disease, essential hypertension, hyperlipidemia, chronic systolic CHF, COPD, type 2 diabetes, anxiety, depression, GERD are all chronic medical conditions which complicate her care. Her home medications were continued where appropriate Weight / BMI Weight Weight: 118 lb 9.739 oz Body Mass Index (BMI) 18.0 ABG / Lab / Microbiology Data 07/04/25 05:25 07/03/25 04:49 Laboratory: Laboratory Results - last 24 hr 07/04/25 05:25: WBC 3.4 L, RBC 3.30 L, Hgb 9.9 L, Hct 30.5 L, MCV 92.4, MCH 30.0, MCHC 32.5, RDW Std Deviation 45.9 H, RDW Coeff of Edita 13.4, Plt Count 151, MPV 11.0, Immature Gran % (Auto) 0.300, Neut % (Auto) 38.0 L, Lymph % (Auto) 44.0 H, [place] % (Auto) 13.0 H, Eos % (Auto) 4.4, Baso % (Auto) 0.3, Absolute Neuts (auto) 1.3 L, Absolute Lymphs (auto) 1.49, Nucleated RBC % 0 D/C Instructions DC O2, CPAP, BIPAP Needs Home O2 Discharge instructions: No Meaningful Use Info Meaningful Use Meaningful Use Diagnoses (Choose all that apply): None applicable Discharge Plan Admission Admit Date/Time: 07/01/25 19:22 Attending Provider: Camacho Aguilar Primary Care Provider: Marci Nuñez Consulting Providers: Jose Royal Discharge Orders/Prescriptions Prescriptions: Continued furosemide 20 mg tablet 20 mg PO QDAY PRN (Reason: for 2lb weight gain) metformin 500 mg tablet 500 mg PO BID lamotrigine 100 mg tablet 100 mg PO QDAY escitalopram oxalate 5 mg tablet 5 mg PO QDAY polyethylene glycol 3350 [Miralax] 17 gram/dose powder 17 g PO DAILY docusate sodium 100 mg capsule 100 mg PO DAILY Patient Comments: stopped 05/30/25 baclofen 5 mg tablet 5 mg PO DAILY Patient Comments: PRESCRIPTION FOR 4 TIMES DAILY ferrous sulfate [Feosol] 325 mg (65 mg iron) tablet 325 mg PO QDAY ondansetron 4 mg tablet,disintegrating 4 mg PO Q8H Qty: 30 3RF trazodone 50 MG tablet 50 mg PO DAILY clonazepam 1 MG tablet 1 mg PO QHS aspirin 81 mg tablet,delayed release (DR/EC) 81 mg PO .COMPLEX Rx Instructions: 81 mg orally EVERY OTHER DAY; rosuvastatin 20 mg tablet 20 mg PO QHS pantoprazole 40 mg Tablet,Delayed Release (Dr/Ec) 40 mg PO DAILY 30 Days Qty: 30 0RF phenazopyridine 100 mg tablet 100 mg PO TID PRN PRN (Reason: pain) lisinopril 10 mg Tablet 5 mg PO DAILY Qty: 30 0RF Rx Instructions: Hold for SBP less than 130 mmHg albuterol sulfate 90 mcg/actuation HFA aerosol inhaler 1 puff inhalation Q6H PRN PRN (Reason: shortness of breath or wheezing) hyoscyamine sulfate 0.125 mg tablet 0.125 mg PO TID PRN (Reason: dyspepsia) Qty: 90 2RF Discontinued Linzess 145 mcg capsule 145 mcg PO QAM Qty: 60 2RF Patient Comments: stopped 05/30/25 oxycodone 5 mg Tablet 5 mg PO Q6H PRN PRN (Reason: Pain Score 6-10) 7 Days Qty: 28 0RF Austedo XR 6 mg tablet extended release 24 hr 6 mg PO DAILY Patient Comments: stopped 06/02/25 Referrals / Follow Up: Marci Nuñez DO [Primary Care Provider] - Disposition Disposition (needs filled in before D/C Order can be placed): [facility] Charges/Coding Visit Charges Inpatient E&M: 58988 Disch Hosp >30min
== END 2025-07-04 11:43 | disposition skilled nursing facility (03) ==
LOC: ED 18:17 → MS3 19:47
PROVIDERS: Emergency Provider Emergency Medicine; PCP Family Medicine; Visit Provider Family Medicine
DX: E46 Unspecified protein-calorie malnutrition (principal); I13.0 Hypertensive heart and chronic kidney disease with heart failure and stage 1 through stage 4 chronic kidney disease, or unspecified chronic kidney disease; I50.22 Chronic systolic (congestive) heart failure; J44.9 Chronic obstructive pulmonary disease, unspecified; E11.43 Type 2 diabetes mellitus with diabetic autonomic (poly)neuropathy; E11.22 Type 2 diabetes mellitus with diabetic chronic kidney disease; R62.7 Adult failure to thrive; Z79.899 Other long term (current) drug therapy; Z79.891 Long term (current) use of opiate analgesic; I25.5 Ischemic cardiomyopathy; Z79.84 Long term (current) use of oral 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 drugs; N18.9 Chronic kidney disease, unspecified; F41.9 Anxiety disorder, unspecified; G47.00 Insomnia, unspecified; I25.10 Atherosclerotic heart disease of native coronary artery without angina pectoris; R53.1 Weakness; K21.9 Gastro-esophageal reflux disease without esophagitis; R41.0 Disorientation, unspecified; R10.9 Unspecified abdominal pain; Z87.891 Personal history of nicotine dependence; K31.84 Gastroparesis; D64.9 Anemia, unspecified; Z86.73 Personal history of transient ischemic attack (TIA), and cerebral infarction without residual deficits; I25.2 Old myocardial infarction; Z95.810 Presence of automatic (implantable) cardiac defibrillator; Z95.5 Presence of coronary angioplasty implant and graft; Z90.49 Acquired absence of other specified parts of digestive tract; Z87.01 Personal history of pneumonia (recurrent); E78.5 Hyperlipidemia, unspecified; F32.A Depression, unspecified; Z68.1 Body mass index [BMI] 19.9 or less, adult; R63.4 Abnormal weight loss
CPT/HCPCS: 36415; 71045; 71275; 80048; 83880; 84484; 85025; 85379; 93005; 94640; 96360; 96361; 96372; 97162; 97166; 97530; 97535; 97802; 99221; 99284; Q9967; A4216; G0378

== ENCOUNTER → 2025-07-16 | Outpatient (CLI) | payer MEDICARE, SELFPAY ==
[2025-07-16 12:41] VITALS: PULSE 106; PULSE 83; PULSE 84; PULSE 90; PULSE 92; PULSE 94; PULSE 96; O2SAT 86; O2SAT 89; O2SAT 91; O2SAT 92; O2SAT 93; O2SAT 94; O2SAT 95; O2SAT 99
--- NOTE | 2025-07-19 09:53 | PCM.PSN.6M ---
PSN 6 Minute Walk Test 6 Minute Walk Test 6 Minute Walk Test: 6 Minute Walk Test PSN:6-Minute Walk Test Start: 07/16/25 12:41 Freq: Status: Active Protocol: [id number] Document 07/16/25 12:41 PAVEL (Rec: 07/16/25 12:44 PAVEL [id number]) 6 Minute Walk Test Date Performed 07/16/25 Time Performed 12:30 Height 5 ft 8 in Weight: 121 lb Weight in Pounds 121.[address]: Saul Freitas Assistive device Walker used: Pre-test Oxygen Delivery Room Air Method Pulse Ox (%) 94 Pulse Rate (60-100 84 beats/min) Dyspnea Mu Scale ( 0 0-10) Exertion Mu Scale 6 (6-20) 1st minute Oxygen Delivery Room Air Method Pulse Ox (%) 92 Pulse Rate (60-100 90 beats/min) 2nd minute Oxygen Delivery Room Air Method Pulse Ox (%) 89 Pulse Rate (60-100 92 beats/min) 3rd minute Oxygen Delivery Room Air Method Pulse Ox (%) 86 Pulse Rate (60-100 106 H beats/min) 4th minute Oxygen Flow Rate (L/ 2 min) (L/min) Oxygen Delivery Nasal Cannula Method Pulse Ox (%) 95 Pulse Rate (60-100 94 beats/min) 5th minute Oxygen Flow Rate (L/ 2 min) (L/min) Oxygen Delivery Nasal Cannula Method Pulse Ox (%) 93 Pulse Rate (60-100 96 beats/min) 6th minute Oxygen Flow Rate (L/ 2 min) (L/min) Oxygen Delivery Nasal Cannula Method Pulse Ox (%) 91 Pulse Rate (60-100 106 H beats/min) Dyspnea Mu Scale ( 1 0-10) Exertion Mu Scale 13 (6-20) Post-test Oxygen Flow Rate (L/ 2 min) (L/min) Oxygen Delivery Nasal Cannula Method Pulse Ox (%) 99 Pulse Rate (60-100 83 beats/min) Full Laps Walked 10 Partial Lap, Number 11 of Tiles Walked Total Distance 601 Walked (ft) Interpretation Interpretation: The patient ambulated 601 feet over the course of 6 minutes beginning on room air with the use of a walker. Pretesting oxygen saturation was noted to be 94% on room air. With ambulation, the michael oxygen saturation was 86%, requiring the initiation of 2 L/min of supplemental oxygen to maintain appropriate saturations. Recommendations Recommendations: 2 L/min of supplemental oxygen should be utilized with exertion.
== END | disposition home or self-care (01) ==
LOC: PSN 12:13
PROVIDERS: PCP Family Medicine; Referring Provider Internal Medicine Critical Care Medicine; Visit Provider Internal Medicine Critical Care Medicine
DX: F17.211 Nicotine dependence, cigarettes, in remission (principal)
CPT/HCPCS: 94618

== ENCOUNTER → 2025-07-25 | Outpatient (CLI) | payer MEDICARE, SELFPAY | END | disposition home or self-care (01) | LOC: PSN 12:45 | PROVIDERS: PCP Family Medicine; Referring Provider Internal Medicine Critical Care Medicine; Visit Provider Internal Medicine Critical Care Medicine | DX: F17.211 Nicotine dependence, cigarettes, in remission (principal) | CPT/HCPCS: 94060; 94726; 94729 ==

== ENCOUNTER 2025-09-16 19:06 | Emergency (ER) | payer MEDICARE, SELFPAY ==
[2025-09-16 19:07] VITALS: BP 121/65; PULSE 78; RESP 18; TEMP 36.7; O2SAT 96
[2025-09-16 19:29] VITALS: BMI 19.7
--- NOTE | 2025-09-16 19:53 | RAD_ITS ---
PROCEDURE: CHEST PA AND LATERAL 09/16/2025 REASON FOR EXAM: GENERALIZED WEAKNESS, RULE OUT PNA TECHNIQUE: Procedure Code: RADCXR Modality: DX Procedure: CHEST PA AND LATERAL COMPARISON: 07/01/2025. FINDINGS: No significant interval change. Chronic-appearing interstitial markings are noted within the lungs. Stable appearance of the cardiac silhouette with a left-sided cardiac pacemaker/AICD. Mild dextro convex thoracic scoliosis. RAD/Chest PA and Lateral IMPRESSION: As above. Reading Location: [id number]
--- NOTE | 2025-09-16 19:55 | EX.ED.DYSGE1 ---
HPI History of Present Illness Chief Complaint: Weakness Narrative Narrative: Patient is a 70-year-old female presenting to the emergency department for right hip pain after a fall and generalized weakness for the past 2 to 3 days. History is very limited given patient is a poor historian. helps provide history. She has a past medical history of long COVID, failure to thrive, diabetes, chronic anemia, syncope, CVA, hypertension, hyperlipidemia, type 2 diabetes, CKD, heart failure, presence of ICD. states that about 3 days ago the patient was looking at photo albums while kneeling on the ground when she lost her balance causing her to fall on her right hip. She has been complaining of right hip pain since. She is also complaining of left lower quadrant abdominal pain that has been present for "years". States that has been worked up by [facility] and they have not found a cause for it. Today she was at [employer] and felt very weak almost causing her to fall. She denies any fever, chills, chest pain, shortness of breath, nausea, vomiting, dysuria or hematuria. She reports 1 episode of diarrhea yesterday. Denies any midline back pain, focal numbness or weakness, headache, visual changes, slurred speech, saddle anesthesia. [facility] Medical History Nocturia Long COVID Duodenal stenosis Pneumonia Dyspnea Back pain History of Holter monitoring History of stress test History of echocardiogram Cardiology follow-up encounter Ischemic colitis History of left heart catheterization History of mechanical ventilation Cardiogenic pulmonary edema Acute hypoxic respiratory failure Multiple lung nodules Major depressive disorder Left bundle branch block NSTEMI (non-ST elevated myocardial infarction) Diabetic peripheral vascular disease Diabetic nephropathy Chronic kidney disease (CKD) Bleeding ulcer Dyslipidemia Chronic systolic heart failure Pacemaker Congestive heart failure (CHF) Cerebral palsy Anxiety and depression Heart failure with reduced ejection fraction GERD (gastroesophageal reflux disease) Insomnia Transient ischemic attack AV node dysfunction Ischemic cardiomyopathy Presence of biventricular implantable cardioverter-defibrillator Ulcer Restless legs High cholesterol Anxiety Former smoker ICD (implantable cardioverter-defibrillator) in place Coronary artery disease CVA (cerebral vascular accident) PFO (patent foramen ovale) Cardiac resynchronization therapy defibrillator (SOFTWARE DEVELOPMENT TEST ENGINEER-D) in place Myocarditis Hyperlipidemia Hypertension Home Medications Medication Instructions Recorded Last Taken Type aspirin 81 mg tablet,delayed 81 mg PO .COMPLEX heart 10/01/23 06/01/25 History release rosuvastatin 20 mg tablet 20 mg PO QHS cholesterol 02/21/24 06/01/25 History furosemide 20 mg tablet 20 mg PO QDAY PRN for 2lb weight 06/13/24 06/19/24 History gain escitalopram oxalate 5 mg tablet 5 mg PO QDAY Mood 11/28/24 06/01/25 History polyethylene glycol 3350 17 17 g PO DAILY Constipation 11/28/24 06/01/25 History gram/dose oral powder (Miralax) lamotrigine 100 mg tablet 100 mg PO QDAY Anxiety 01/23/25 06/02/25 History ferrous sulfate 325 mg (65 mg 325 mg PO QDAY Supplement 02/13/25 06/01/25 History iron) tablet (Feosol) pantoprazole 40 mg tablet,delayed 40 mg PO DAILY 30 days #30 tabs 04/30/25 06/01/25 Rx release baclofen 5 mg tablet 5 mg PO DAILY SPASCITY 05/29/25 06/01/25 History albuterol sulfate 90 mcg/actuation 1 puff inhalation Q6H PRN PRN 07/01/25 Unknown History aerosol inhaler shortness of breath or wheezing metformin 500 mg tablet 500 mg PO QDAY Diabetes 07/12/25 Unknown History oxycodone-acetaminophen 5 mg-325 1 tab PO Q8H PRN severe pain 07/12/25 Unknown History mg tablet trazodone 50 mg tablet 25 mg PO DAILY Anxiety 07/12/25 Unknown History clonazepam 1 mg tablet 0.5 mg PO QHS anxiety 07/20/25 Unknown History linaclotide 145 mcg capsule 145 mcg PO QAM #30 caps 08/30/25 Unknown Rx (Linzess) fluticasone propionate 50 1 spray intranasal QDAY 09/03/25 Unknown History mcg/actuation nasal spray,suspension (Flonase Allergy Relief) phenazopyridine 100 mg tablet 100 mg PO TID PRN pain #90 tabs 09/07/25 Unknown Rx (Pyridium) levofloxacin 250 mg tablet 250 mg PO Q24H 3 days #3 tabs 09/17/25 Unknown Rx Allergy/AdvReac Type Severity Reaction Status Date / Time No Known Allergies Allergy Verified 09/16/25 19:09 Family History Father Heart disease Myocardial infarction Mother Anxiety and depression Suicide and self-inflicted injury from suicide age 52. Surgical History History of cardiac catheterization Presence of stent in coronary artery History of bilateral cataract extraction History of skin surgery S/P colon polypectomy History of cardiac defibrillator placement History of cholecystectomy History of coronary artery stent placement Social History household members: spouse Smoking Status: Former smoker how long ago did patient quit smokin-1.5 ppd from teen until quit in 2008. alcohol intake: never substance use type: does not use caffeine: Yes seatbelt use: always do you feel safe at home: Yes additional social history: - Cuate ROS ROS ED ROS Narrative See HPI EXAM Physical Exam Narrative Exam Narrative: Vital signs: Reviewed General: Alert and oriented x 3. No acute distress. Chronically ill-appearing. HEENT: Head is normocephalic and atraumatic.no cephalhematoma, lacerations or abrasions to the head or face. Sinuses nontender, pupils equal round and reactive. Nares are patent. Oropharynx and throat exams normal. Neck: Supple without lymphadenopathy nontender. No midline cervical spinal tenderness to palpation. No step-offs or deformities. Cardiovascular: Regular rate and rhythm, no murmurs. No rubs or gallops. Normal S1 and S2 Respiratory: Clear to auscultation bilaterally. No wheezes, rales, rhonchi Chest: Chest wall is atraumatic and nontender to palpation. No crepitus, erythema or ecchymosis. Abdominal: Soft and tender to palpation of the left lower quadrant. Normal bowel sounds. No guarding or rebound. Nonsurgical abdomen. No CVA tenderness to palpation. Extremities: There is some mild tenderness to palpation of the right posterior lateral hip. There is no midline thoracic or lumbar spinal tenderness to palpation. No step-offs or deformities. Extremities are atraumatic and nontender to palpation. Normal active range of motion. Normal range of motion. 5/5 strength in bilateral lower extremities. Normal sensation. Skin: No rash or redness. The rest of the physical exam is unremarkable Const Vital Signs: 09/16/25 19:07 09/16/25 19:32 09/16/25 21:07 Temperature 98.0 F Temperature Source Temporal Pulse Rate 78 66 Respiratory Rate 18 28 H Respiratory Effort Normal Non-Labored Respiratory Pattern Normal Blood Pressure 121/65 H 138/85 H Blood Pressure Mean 83 102 Pulse Ox 96 94 Oxygen Delivery Method Room Air Room Air 09/16/25 22:29 09/17/25 00:00 Temperature Temperature Source Pulse Rate 115 H 80 Respiratory Rate 14 21 H Respiratory Effort Respiratory Pattern Blood Pressure 118/93 H 144/75 H Blood Pressure Mean 101 98 Pulse Ox 99 97 Oxygen Delivery Method Room Air Room Air MDM MDM MDM Narrative Medical decision making narrative: Patient is a 70-year-old female presents to the emergency department for generalized weakness. Patient was seen and examined. Vitals are stable. Patient resting bed comfortably no acute distress. Differential includes but is not limited to: Anemia, dehydration, electrolyte imbalance, atypical ACS, UTI, pneumonia, intra-abdominal infection EKG shows atrial sensed ventricular paced rhythm. No ischemic changes. Troponin reflex within normal limits. CBC with no leukocytosis. Chronic anemia of 9.6, stable. BMP with no significant abnormalities, borderline elevated BUN of 22. Glucose of 172. Urinalysis with positive nitrites and 1+ bacteria, will treat for UTI. Reviewed prior urine cultures, grew Pseudomonas in the past which was susceptible to levofloxacin. Will prescribe this here as well as for home. Viral swab negative. Chest x-ray reviewed by myself, no acute findings seen. Radiology read with no significant interval change. Chronic-appearing interstitial markings are noted within the lungs. Stable appearance of the cardiac silhouette with a left-sided cardiac pacemaker/AICD. CT abdomen pelvis showed incompletely imaged ground-glass density in the right lung base could represent residual infiltrates, decreased since the previous study. Moderate amount of stool throughout the colon. Prominent dilatation of the 2nd portion of the duodenum, similar to the previous study. Narrow angle between the takeoff of the SMA and the aorta, which compresses the 3rd portion of the duodenum. 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 Sigmoid diverticulosis without CT evidence of overt diverticulitis. 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 Ground glass opacities are known and chronic per at bedside. No cough, fevers to suspect overlying pneumonia. Patient ambulated without difficulty. Will prescribe antibiotics for home. Updated and patient on the findings. Stable for outpatient management. Patient discharged from the Emergency Department. I do not feel that the patient's evaluation reveals any acute reason for admission at this time. I instructed them to either follow-up with their primary care physician or promptly return to the Emergency Department for reevaluation should symptoms worsen or new symptoms develop. I explained what symptoms would indicate the need to return to the emergency department. Shared decision making was used. The patient voiced understanding of the treatment plan and is agreeable with it. Clinical impression: generalized weakness UTI chronic anemia fall right hip pain History & Record Review Discussion w/independent historian: Patient and Significant other Additional record(s) reviewed:: Prior ED visit and Prior labs Lab Data Attestation: I reviewed the patient's lab results. Labs: Laboratory Results - last 24 hr 09/16/25 09/16/25 09/16/25 20:13 20:13 22:30 WBC 5.0 RBC 3.18 L Hgb 9.6 L Hct 29.7 L MCV 93.4 MCH 30.2 MCHC 32.3 RDW Std Deviation 46.6 H RDW Coeff of Edita 13.5 Plt Count 167 MPV 10.6 Immature Gran % (Auto) 0.400 Neut % (Auto) 64.0 Lymph % (Auto) 21.5 [place] % (Auto) 9.7 Eos % (Auto) 3.8 Baso % (Auto) 0.6 Absolute Neuts (auto) 3.2 Absolute Lymphs (auto) 1.07 Nucleated RBC % 0 Sodium 139 Potassium 4.6 Chloride 103 Carbon Dioxide 26.9 Anion Gap 9 BUN 22 H Creatinine 1.19 Estim Creat Clear Calc 39.73 L Est GFR (MDRD) Non-Af 49 L BUN/Creatinine Ratio 18.2 Glucose 172 H Calcium 9.0 Total Bilirubin 0.36 AST 18 ALT 6 Alkaline Phosphatase 67 Troponin T High Sens 9 D Cancelled Troponin T Hi Sens 2 Hr 9 Total Protein 6.9 Albumin 3.6 Globulin 3.3 Albumin/Globulin Ratio 1.1 Lipase 30 Urine Color Yellow Urine Clarity Cloudy Urine pH 5.0 Ur Specific [place] 1.015 Urine Protein 30 H Urine Glucose (UA) Normal Urine Ketones Negative Urine Occult Blood Negative Urine Nitrite Positive H Urine Bilirubin 3 H Urine Urobilinogen 4 H Ur Leukocyte Esterase Negative Urine RBC 0-5 SEEN Urine WBC 0-5 SEEN Ur Squamous Epith Cells 5-10 SEEN Ur Transition Epith Cell 0-5 SEEN Urine Bacteria 1+ Urine Mucus 0 SEEN Radiography Diagnostic Testing: Clinical Impression(s) from Imaging Studies Chest X-Ray 09/16/25 19:53 IMPRESSION: As above. Reading Location: [facility] Abdomen/Pelvis CT 09/16/25 22:10 IMPRESSION: 1. Incompletely imaged ground-glass density in the right lung base could represent residual infiltrates, decreased since the previous study. 2. Moderate amount of stool throughout the colon. 3. Prominent dilatation of the 2nd portion of the duodenum, similar to the previous study. Narrow angle between the takeoff of the SMA and the aorta, which compresses the 3rd portion of the duodenum. 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 4. Sigmoid diverticulosis without CT evidence of overt diverticulitis. 5. Additional nonacute findings, as described above. Reading Location: [facility] Discharge Plan Triage Chief Complaint: Weakness ED Provider: Tasia Etienne Dx/Rx/DC Orders Clinical Impression: Generalized weakness, Acute UTI, Chronic anemia Instructions: Anemia, UTIs Prescriptions: New levofloxacin 250 mg tablet 250 mg PO Q24H 3 Days Qty: 3 0RF No Action furosemide 20 mg tablet 20 mg PO QDAY PRN (Reason: for 2lb weight gain) metformin 500 mg tablet 500 mg PO QDAY lamotrigine 100 mg tablet 100 mg PO QDAY escitalopram oxalate 5 mg tablet 5 mg PO QDAY polyethylene glycol 3350 [Miralax] 17 gram/dose powder 17 g PO DAILY baclofen 5 mg tablet 5 mg PO DAILY Patient Comments: PRESCRIPTION FOR 4 TIMES DAILY ferrous sulfate [Feosol] 325 mg (65 mg iron) tablet 325 mg PO QDAY oxycodone-acetaminophen 5-325 mg tablet 1 tab PO Q8H PRN (Reason: severe pain) fluticasone propionate [Flonase Allergy Relief] 50 mcg/actuation spray,suspension 1 spray intranasal QDAY Rx Instructions: administer into each nostril trazodone 50 mg tablet 25 mg PO DAILY clonazepam 1 mg tablet 0.5 mg PO QHS aspirin 81 mg tablet,delayed release (DR/EC) 81 mg PO .COMPLEX Rx Instructions: 81 mg orally EVERY OTHER DAY; rosuvastatin 20 mg tablet 20 mg PO QHS pantoprazole 40 mg Tablet,Delayed Release (Dr/Ec) 40 mg PO DAILY 30 Days Qty: 30 0RF albuterol sulfate 90 mcg/actuation HFA aerosol inhaler 1 puff inhalation Q6H PRN PRN (Reason: shortness of breath or wheezing) Linzess 145 mcg capsule 145 mcg PO QAM Qty: 30 4RF phenazopyridine [Pyridium] 100 mg tablet 100 mg PO TID PRN (Reason: pain) Qty: 90 1RF Primary Care Provider: Marci Nuñez Referrals: Marci Nuñez, [Primary Care Provider, Family Practice] - As soon as possible Activity Restrictions/Additional Instructions: Follow-up with your urologist to soon as possible. Take the antibiotic as prescribed. Your evaluation in the Emergency Department did not reveal any acute reason for admission. However, I want to emphasize that you may be early in the course of a disease process or illness even if it is not present. For this reason you should follow-up within 24 hours for reevaluation with either your primary care physician or if necessary back here in the Emergency Department. You should return to the Emergency Department immediately if your symptoms worsen or new symptoms develop. Print Language: [place] Disposition Disposition: Home, Self Care
--- OUTSIDE RECORDS SUMMARY | 2025-09-16 20:16 | XMS RPT_ITS | CCD ---
Author Organization [facility] [employer] Care Team Providers Care Staff Genetic Counselor Name Role Phone DR LARY WHEAT DO Primary Care Physician [phone] Jesus Manuel Freitas DO Primary Care Provider Jesus Manuel Freitas DO Primary Care Provider Jesus Manuel Freitas DO Primary Care Provider DR LARY WHEAT DO Primary Care Physician [phone] DR LARY WHEAT DO Primary Care Physician [phone] Jesus Manuel Freitas DO Primary Care Provider Odilon CUSTOMER ADVOCACY MANAGER.NIRMALA, Kailyn K Unavailable ADRIENNE BYERS DO Primary Care Physician [phone] Gilbert CUSTOMER ADVOCACY MANAGER.NIRMALA, Gissell Unavailable Jessu Manuel Freitas DO Primary Care Provider Odilon CUSTOMER ADVOCACY MANAGER.NIRMALA, Kailyn K Unavailable Gilbert CUSTOMER ADVOCACY MANAGER.NIRMALA, Gissell Unavailable Dr. Adrienne Byers Primary Care Provider Dr. Alexsandra Vela Attending Provider Dr. Jose Turk Attending Provider Dr. Uday Orosco Emergency Provider [phone] Dr. Tony Corona Admit Provider Unavailabl e Dr. Tony Corona Other Provider Unavailabl e Dr. Ben Johnson Attending Provider Dr. Ben Johnson Other Provider Dr. Adrienne Byers Referring Provider [phone] Brisa Jennings Attending Provider Unavailable Le, Dr. [...] Provider Dr. Adrienne Christine Attending Provider [phone] Ben Johnson Referring Provider Dr. Heike [...] Pr ovider Marci Lopez Primary Care Provider [phone] Rick Mcdermott APRN, CNP Primary Care Pr [...] John FOWLER, Dr. Marci Baird Primary Care [facility] er John FOWLER, Dr. Marci Baird Referring Provider Rosa Pabon Attending Provider John FOWLER, Dr. Marci Baird Attending Provider Addison FOWLER, Dr. Garcia Attending Provider Addison FOWLER, Dr. Garcia Emergency Provider LEYLA MURPHY Referring Unavailable JESUS MANUEL FREITAS R Primary Care Unavailable LEYLA MURPHY Referring Unavailable BROWN, JESUS MANUEL R Primary Care Unavailable John DO, Dr. Marci Baird Primary Care [facility] er John FOWLER, Dr. Marci Baird Referring Provider Rosa Pabon Attending Provider Vito FOWLER, Dr. Walters Emergency Provider Andmain DO, Dr. Walters Emergency Provider Kwesi FOWLER, Dr. Marsh Admit Provider Kwesi FOWLER, Dr. Marsh Attending Provider Kwesi FOWLER, Dr. Marsh Other Provider John FOWLER, Dr. Marci Baird [facility] Care [facility] er John FOWLER, Dr. Marci Baird Referring Provider Kaykay Siegel Attending Provider Earnest MORENO, Dr. Meyers Attending Provider Earnest MORENO, Dr. Meyers Referring Provider Daysi MORENO, Dr. Peng Attending Provider Daysi MORENO, Dr. Peng Referring Provider Mayte De La O Attending Provider Rosa Pabon Attending Provider Addison FOWLER, Dr. Garcia Attending Provider Addison FOWLER, Dr. Garcia Emergency Provider Vito FOWLER, Dr. Walters Emergency Provider Kwesi FOWLER, Dr. Marsh Admit Provider Kwesi FOWLER, Dr. Marsh Attending Provider Kwesi FOWLER, Dr. Marsh Other Provider Estuardo MORENO, Dr. Alonso Carter Admit Provider Estuardo MORENO, Dr. Alonso Carter Attending Provider Estuardo MORENO, Dr. Alonso Carter Referring Provider Levy FOWLER, Dr. Torrez Attending Provider Levy FOWLER, Dr. Torrez Other Provider [phone] John FOWLER, Dr. Marci Baird [facility] er John FOWLER, Dr. Marci Baird Referring Provider Estuardo MORENO, Dr. Alonso Carter Admit Provider Estuardo MORENO, Dr. Alonso Carter Attending Provider Estuardo MORENO, Dr. Alonso Carter Referring Provider Levy FOWLER, Dr. Torrez Attending Provider Friend , Dr. Torrez Other Provider John DO, Dr. Marci Baird Primary Care [facility] er John FOWLER, Dr. Marci Baird Referring Provider Daysi MORENO, Dr. Peng Referring Provider Arron FOWLER, Dr. Diehl Emergency Provider John FOWLER, Dr. Marci Baird Primary Care [facility] er John FOWLER, Dr. Marci Baird Referring Provider Daysi MORENO, Dr. Peng Referring Provider Dr. Fazal Heller DO Attending Provider Arron FOWLER, Dr. Diehl Emergency Provider Kaykay Siegel Attending Provider John OFWLER, Dr. Marci Baird Primary Care [facility] er Dr. Danish Tavarez MD Attending Provider John FOWLER, Dr. Marci Baird Primary [facility] er John FOWLER, Dr. Marci Baird Referring Provider Daysi MORENO, Dr. Peng Attending Provider Dr. Fazal Heller DO Attending Provider Kaykay Siegel Attending Provider Marilyn FOWLER, Dr. Keita Emergency Provider Tergerardo FOWLER, Dr. Contreras Admit Provider Tereletsky DO, Dr. Contreras Attending Provider Jesus Manuel Freitas DO Primary Care Provider Alex FOWLER, Dr. Contreras Other Provider Magno MORENO, Dr. Andersen Attending Provider Alex FOWLER, Dr. Contreras Attending Provider Magno MORENO, Dr. Andersen Other Provider John FOWLER, Dr. Marci Baird Primary Care Provid er John FOWLER, Dr. Marci Baird Referring Provider Jose MORENO, Dr. Goldstein Attending Provider Rosa Pabon Attending Provider Genny FOWLER, Dr. Garcia Admit Provider Dr. Jose Royal DO Attending Provider Jose MORENO, Dr. Goldstein Attending Provider Magno MORENO, Dr. Andersen Referring Provider Genny FOWLER, Dr. Garcia Other Provider Lauren MORENO, Dr. Camacho Ramirez Attending Provider Dr. Jose Royal DO Attending Provider Lauren MORENO, Dr. Camacho Ramirez Other Provider Marci Lopez DO Primary Care Provider CECILIA OWESN Attending Unavailable SELF Referring Unavailable BROWN, JESUS MANUEL R Primary Care Unavailable LEONEL HURTADO Attending Unavaila ble MARCI LOPEZ L Primary Care Unavailable LEYLA MURPHY Attending Unavailable BROWN, JESUS MANUEL R Primary Care Unavailable BROWN, JESUS MANUEL R Primary Care Unavailable BROWN, JESUS MANUEL R Primary Care Unavailable John FOWLER, Dr. Marci Baird Primary Care Provid er Marlene MORENO, Mario Attending Provider Unavailable Fortino FOWLER, Dr. Hughes Attending Provider [phone] Fortino FOWLER, Dr. Hughes Referring Provider Fortino FOWLER, Dr. Hughes Other Provider Brisa Jennings Attending Provider Unavailable John DO, Dr. Marci Baird Primary Care Physic blaine Daysi MORENO, Dr. Peng Attending Physician Dr. Romeo Padron DO Emergency Department Physic blaine Kwesi FOWLER, Dr. Marsh Admitting Physician Kwesi FOWLER, Dr. Marsh Attending Physician Kwesi FOWLER, Dr. Marsh Nurse Practitioner Estuardo MORENO, Dr. Alonso Carter Admitting Physician Estuardo MORENO, Dr. Alonso Carter Attending Physician [phone] Levy FOWLER, Dr. Torrez Attending Physician [phone] Levy FOWLER, Dr. Torrez Nurse Practitioner Jose MORENO, Dr. Goldstein Attending Physician Arron FOWLER, Dr. Diehl Attending Physician Dr. Fazal Heller DO Emergency Department Physic blaine Kaykay Siegel Attending Physician Rosa Pabon Attending Physician Dr. Bossman Sanders DO Emergency Department Physici an Alex FOWLER, Dr. Contreras Admitting Physician Alex FOWLER, Dr. Contreras Nurse Practitioner Magon MORENO, Dr. Andersen Attending Physician Alex FOWLER, Dr. Contreras Attending Physician Magno MORENO, Dr. Andersen Nurse Practitioner Genny FOWLER, Dr. Garcia Admitting Physician Genny FOWLER, Dr. Garcia Nurse Practitioner Lauren MORENO, Dr. Camacho Ramirez Attending Physician Dr. Jose Royal DO Attending Physician Lauren MORENO, Dr. Camacho Ramirez Nurse Practitioner Marlene MORENO, Mario Attending Physician Unavailable Fortino FOWLER, Dr. Hughes Attending Physician Fortino FOWLER, Dr. Hughes Nurse Practitioner Brisa Jennings Attending Physician Unavailable PINA ISIDRO Attending Unavailable PINA ISIDRO Referring Unavailable JOHN, SCHLESWIG Primary Care Unavailable JOHNMARCI Attending Unavailable JOHN, MARCI Referring Unavailable JOHN, SCHLESWIG Primary Care Unavailable JOHNMARCI Attending Unavailable JOHN, SCHLESWIG Referring Unavailable JOHN, SCHLESWIG Primary Care Unavailable John DO, Dr. Marci Baird Primary Care Physic blaine Dr. Danish Tavarez MD Attending Physician Dr. Danish Tavarez MD Referring Provider John FOWLER, Dr. Marci Baird Referring Provider Dr. Shan Lockett DO Nurse Practitioner Dr. Shan Lockett DO Attending Physician [phone] Maximo Orosco Admitting Unavailable Maximo Orosco Attending Unavailable [facility] Care [facility] Unavail[facility] e Jose Royal Consulting Unavailable Jose Royal Admitting Unavailable Camacho Aguilar Attending Unavailable [facility] Care Unavailabl Rosa Bellamy Attending Unavailable [facility] Referring Unavailabl e [facility] Unavailabl e Ben Johnson Consulting Unavailable Ben Johnson Admitting Unavailable Ganesh Kiran Attending Unavailable Shan Lockett Consulting Unavailable [facility] Care Unavailabl e Ben Johnson Attending Unavailable Ben Johnson Admitting Unavailable Tereletsky, Ben Consulting Unavailable [facility] Unavailabl e [facility] Referring Unavailabl Dipti Cervantes Attending Unavailable [facility] Referring [facility]ailabl e [facility] Unavail[facility] e Kaykay Siegel Attending Unavail able Ganesh Kiran Attending Unavailable Levy, Shan Consulting Unavailable Ganesh Kiran Consulting Unavailable [facility] Unavailabl e Klusty-Vic, Jeffrey Referring Unavailabl e Klusty-VicJosephel Attending Unavailabl e [facility] Unavailabl e [facility] Attending Unavailabl e [facility] Referring Unavailabl e [facility] Unavailabl Saul Richardson Attending Unavailable Saul Freitas Referring Unavailable [facility] Unavailabl e [facility] Attending Unavailabl e [facility] Referring Unavailabl e [facility] Unavailabl e Mario Sutherland Attending Unavailable [facility] Unavailabl e Luigi Tinoco Attending Unavailable Luigi Tinoco Referring Unavailable [facility] Unavailabl Rosa Bellamy Referring Unavailable Rosa Rodriguez Attending Unavailable [facility] Unavailabl Fazal Garcia Attending Unavailable [facility] Unavailabl e Daysi, Danish Attending Unavailable Daysi, [place] Referring Unavailable [facility] Unavailabl e Lisa Tavarezl Attending Unavailable [facility] Unavailabl e [facility] Referring Unavailabl e Angelita Garcia Attending Unavailable [facility] Unavailabl e Daysi, [place] Attending Unavailable Daysi, [place] Referring Unavailable [facility] e [facility] Referring Unavailabl e Angelita Garcia Attending Unavailable [facility] Unavailabl e [facility] Referring Unavailabl e Luigi Tinoco Attending Unavailable [facility] Unavailabl e Daysi, [place] Attending Unavailable Daysi, Danish Referring Unavailable [facility] Referring Unavailabl e [facility] Care Unavailabl e Mayte Burch Attending Unavailable [facility] Unavailabl e Daysi, [place] Referring Unavailable Daysi, Danish Attending Unavailable [facility] Unavailabl e Jose Royal Consulting Unavailable Jose Royal Admitting Unavailable Camacho Aguilar Attending Unavailable Camacho Aguilar Consulting Unavailable [facility] Unavailabl e [facility] Referring Unavailabl e Kaykay Siegel Attending Unavail able Rosa Rodriguez Attending Unavailable [facility] Referring Unavailabl e [facility] Unavailabl e [facility] Unavailabl e Daysi, Danish Referring Unavailable DaysiArvin washingtonril Attending Unavailable Rosa Rodriguez Attending Unavailable [facility] Referring Unavailabl e [facility] Unavailabl e [facility] Unavailabl Rosa Bellamy Attending Unavailable [facility] Referring Unavailabl e [facility] Unavailabl e Daysi, Danish Referring Unavailable Daysi [place] Attending Unavailable [facility] Unavailabl e [facility] Referring Unavailabl Jose Nunn Attending Unavailable [facility] Unavailabl e [facility] Referring Unavailabl Saul Richardson Attending Unavailable [facility] Unavailabl e Rosa Rodriguez Attending Unavailable [facility] Referring [facility]abl e [facility] Unavail[facility] e Rosa Rodriguez Attending Unavailable [facility] Referring [facility]abl e [facility] Referring Unavailabl Adrienne Sarabia Attending Unavailable [facility] Unavailabl e Rosa Rodriguez Attending Unavailable [facility] Referring Unavailabl e Maximo Orosco Admitting Unavailable Maximo Orosco Consulting Unavailable Maximo Orosco Attending Unavailable [facility] Unavailabl e [facility] Referring Unavailabl e [facility] Unavailabl e Shan Lockett Attending Unavailable [facility] Unavailabl e Alonso Marte Chi Attending Unavailable Estuardo Alonso Chi Referring Unavailable Estuardo, Alonso Chi Admitting Unavailable [facility] Unavailabl e Rosa Rodriguez Referring Unavailable Rosa Rodriguez Attending Unavailable [facility] Unavailabl e [place] Referring Unavailable Saul Freitas Attending Unavailable Shan Lockett Attending Unavailable Ganesh Kiran Referring Unavailable [facility] Referring Unavailabl e [facility] Unavailabl e Shan Lockett Consulting Unavailable Shan Lockett Attending Unavailable [facility] Unavailabl e Brown, Saul Referring Unavailable Brown Saul Consulting Unavailable Saul Freitas Attending Unavailable [facility] Unavailabl e Jose Jaime Attending Unavailable [facility] Unavailabl e Angelita Garcia Attending Unavailable [facility] Unavailabl e Jose Royal Attending Unavailable [facility] Unavailabl e Rosa Rodriguez Attending Unavailable [facility] Referring Unavailabl e [facility] Unavailabl e Danish Tavarez Attending Unavailable Danish Tavarez Referring Unavailable [facility] Unavailabl e Varun Morrell Attending Unavailable Marci Lopez Primary Care UnavailJose Potts Attending Unavailable Allergies Allergy Classification Reported Allergen(s) Allergy Type Date of Onset Reaction(s) Facility HMG-CoA Reductase Inhibitors (statins) (1 source) atorvastatin Drug Allergy 04-03-2010 [facility] (20 sources) atorvastatin; Translations: [ATORVASTATIN CALCIUM] Drug Allergy 04-03-2010 [facility] Medications Current Medications Medication Drug Class(es) Dates Sig (Normalized) Sig (Original) acetaminophen 325 mg / oxyCODONE hydrochloride 5 mg oral tablet (20 sources) Opioid Agonist Start: 07-12-2025 Start: 04-19-2025 End: 04-30-2025 Start: 02-05-2025 End: [...] for pain 8 2 0 November 18, 2023November 28, 2024 3:07pm Pain Pain, unspecified Start: 06-28-2024 End: 07-03-2024 Start: 06-28-2024 End: 07-03-2024 Oxycodone-Acetaminophen (Per cocet) 5-325 mg tablet Discontinued 1 {tbl} PO EVERY 6 HOURS as needed for pain 12 3 0 June 28, 2024 July 03, 2024 6:47pm Colitis Noninfective gastroenteritis and colitis, unspecified [id number] 200 actuat albuter ol 0.09 mg/actuat metered dose inhaler (20 sources) beta2-Adrenergic Agonist Start: 07-01-2025 Start: 12-13-2024 End: 12-13-2024 take 4 puff(s) [...] sulf ate 90 mcg/actuation aebs 02/21/2024 Active ARIPiprazole 2 mg oral tablet (20 sources) [...] tab(s), 0 Refill(s), 11/25/21 10:33:00 EST, Pharmacy: [place] [id number] [facility], 172, cm, 11/20/21 10:16:00 EST, [...] (20 sources) alpha-Adrenergic Tomeka, beta-Adrenergic Tomeka Start: 2023 carvedilol 3.125 mg oral tablet Dose : 3.125 mg = 1 tab(s), Oral, BIDM, 0 Refill(s) Start Date: 11/30/22 Status: Ordered Start: 06-09-2022 carvedilol 3.1 25 mg oral tablet Dose : 1.563 mg = 0.5 tab(s), Oral, BID, # 30 tab(s), 6 Refill(s), Pharmacy: [facility]/pharmacy #[id number], 172.7, cm, 06/09/22 8:41:00 EDT, Height, [...] 180 tab(s), 0 Refill(s), Pharmacy: [facility]/pharmacy #[id number], 172.7, cm, 05/12/22 12:20:00 EDT, Height [...] 04/29/23 Status: Ordered Start: 04-29-2023 End: 05-29-2025 ciprofloxacin 3 mg/ml / dexamethasone 1 mg/ml otic suspension (2 sources) Corticosteroid, Quinolone Antimicrobial Start: 12-08-2022 Ciprodex 0.3%-0. 1% otic suspension Dose = 4 drop(s), Ear, left, BID, # 7.5 mL, 0 Refill(s), Pharmacy: [facility]/pharmacy #[id number], 172.7, cm, 12/08/22 14:58:00 EST, Height Start Date: 12/08/22 Status: Ordered clonazePAM 1 mg oral tablet (20 sources) Benzodiazepine Start: 11-18-2014 End: 07-20-2025 Start: 11-18-2014 End: 06-20-2024 Comment on above: Take 1 mg by mouth d aily at bedtime. dapagliflozin 5 mg oral tablet (1 source) Sodium-Glucose Cotransporter 2 Inhibitor Start: Farxiga 5 mg oral tablet Dose : 5 mg = 1 tab(s), Oral, qDay, # 30 tab(s), 6 Refill(s), Pharmacy: [facility]/pharmacy #[id number], 172.7, cm, 02/17/22 15:57:00 EDT, Height, kg, 02/17/22 15:57:00 EDT, Dosing Weight Start Date: 02/17/22 Status: Ordered Deutetrabenazine (Austedo Xr) 6 mg tablet extended release 24 hr (7 sources) Start: 025 take 1 tablet by mouth once daily [...] daily. 30 tablet 5 03/12/2025 09/08/2025 Active escitalopram 5 mg oral table t [...] mg oral tablet (20 sources) Start: 02-13-2025 Start: 08-01-2024 End: 11-28-2024 Ferrous Sulfate 325 mg (65 m g iron) capsule, extended release Discontinued mg PO August 01, 2024 12:00am November 28, 2024 3:09pm fluticasone propionate 0.05 mg/actuat metered dose nasal spray (12 sources) Corticosteroid Start: 07-12-2025 take 1 spray(s) nasal route twic e daily fluticasone (FLONASE ALLERGY RELIEF) 50 mcg/actuation nasal spray Use 1 spray in each nostril two times a day. Active furosemide 20 mg oral tablet (20 sources) Loop Diuretic Start: 03-20-2022 Start: 03-09-2022 take 1 tablet by maida th once daily Lasix 20 mg oral tablet See Instructions, 1 tab(s) Oral qDay on Wed, , Sat, Sun, # 30 tab(s), 6 Refill(s), Pharmacy: [facility]/pharmacy #[id number], 172.7, cm, 03/09/22 15:20:00 EDT, Height, [...] Mon/Wed/Wed, # 30 tab(s), 3 Refill(s), Pharmacy: [facility]/pharmacy #[id number], 172.7, cm, 02/17/22 15:57:00 EDT, Height, kg, 02/17/22 15:57:00 EDT, Dosing Weight Start Date: 02/17/22 Status: Ordered Start: 12-05-2021 Lasix 20 mg or al tablet Dose : 20 mg = 1 tab(s), Oral, qDay, # 30 tab(s), 3 Refill(s), Pharmacy: [facility]/pharmacy #[id number], 172.7, cm, 12/24/21 2:11:00 EST, Height, kg, 12/24/21 2:11:00 EST, Dosing Weight Start Date: 12/25/21 Status: Ordered Comment on above: as needed. glipiZIDE er 2.5 mg 24 hr extended release oral tablet (20 sources) Sulfonylurea Start: 02-12-2022 glipiZIDE 2.5 mg oral tablet, extended release Dose : 2.5 mg = 1 tab(s), Oral, qDayM, # 90 tab(s), 1 Refill(s), Pharmacy: [facility], 172.7, cm, 12/30/21 10:10:00 EST, Height, kg, 02/12/22 11:01:00 EDT, Dosing Weight Start Date: 02/12/22 Status: Ordered Start: 07-18-2021 glipiZIDE 2.5 mg oral tablet, extended release Dose : 2.5 mg = 1 tab(s), Oral, qDayM, # 90 tab(s), 1 Refill(s), Pharmacy: [facility], 172, cm, 07/18/21 13:16:00 EDT, Height, kg, 07/18/21 13:16:00 EDT, Dosing Weight Start Date: 07/18/21 Status: Ordered Iron Chews (20 sources) Start: 05-01-2022 Iron Chews See Instructions, 18 mcg gummy daily, 0 Refill(s) Start Date: 05/01/22 Status: Ordered lamoTRIgine 100 mg oral tablet (20 sources) Mood Stabilizer, Anti-epileptic Agent Start: 01-23-2025 magnesium (as citrate)-melatonin 71.5 mg-1 mg oral tablet (2 sources) Start: 05-01-2022 take 1 tablet by mouth once daily magnesium (as citrate)-melatonin 71.5 mg-1 mg oral tablet See Instructions, [facility] Brand 84 mg gummy daily, 0 Refill(s) Start Date: 05/01/22 Status: Ordered polyethylene glycol 3350 61104 mg powder for oral solution (20 sources) [...] 84 tab(s), 0 Refill(s), Pharmacy: [facility]/pharmacy #[id number], 172.7, cm, 11/02/22 16:36:00 EST, Height [...] qDay, # 90 cap(s), 1 Refill(s), Pharmacy: [facility], 172.7, cm, 12/30/21 10:10:00 EST, Height, kg, 02/12/22 11:01:00 EDT, Dosing Weight Start Date: 02/12/22 Status: Ordered Start: 02-04-2022 ramipril 2.5 m g oral capsule Dose : 2.5 mg = 1 cap(s), Oral, qDay, # 30 cap(s), 0 Refill(s), Pharmacy: [facility]/pharmacy #[id number], 172.7, cm, 12/30/21 10:10:00 EST, Height, kg, 12/30/21 10:10:00 EST, Dosing Weight Start Date: 02/04/22 Status: Ordered Start: 12-05-2021 End: 02-03-2022 ramipril 2.5 mg oral capsule Dose : 2.5 mg = 1 cap(s), Oral, qDay, # 30 cap(s), 1 Refill(s), Pharmacy: [facility]/pharmacy #[id number], 162, cm, 11/22/21 4:04:00 EST, Height, [...] 11/27/22, # 90 tab(s), 3 Refill(s), Pharmacy: [facility], 172.7, cm, 05/12/22 12:20:00 EDT, Height, kg, 05/22/22 12:54:00 EDT, Dosing Weight Start Date: 05/26/22 Status: Ordered Start: 06-16-2021 rosuvastatin 2 0 mg oral tablet Dose : 20 mg = 1 tab(s), Oral, Daily, # 90 tab(s), 3 Refill(s), Pharmacy: [facility], 170.3, cm, 04/17/21 13:26:00 EDT, Height, kg, 04/17/21 13:26:00 EDT, Dosing Weight Start Date: 06/16/21 Status: Ordered Start: 08-29-2010 rosuvastatin ( CRESTOR) 5 mg ORAL Tab Take by mouth as directed. Wednesday, Wednesday, Wednesday 0 o 08/29/2010 Active Comment on above: 1 qd tenapanor 50 mg oral tablet (2 sources) Start: 07-30-20 traZODone hydrochloride 50 mg oral tablet (20 sources) Serotonin Reuptake Inhibitor Start: 11-18-20 End: 07-12-20 Comment on above: Take 50 mg by mouth. Take 50 mg by mouth as needed. valbenazine 40 mg oral capsule (6 sources) Start: 02-28-20 End: 02-28-20 take 1 capsule by mouth once daily valbenazine (INGREZZA) 40 mg capsule Take 1 capsule by mouth once daily. 30 capsule 02/27/2025 02/27/2026 Active 24 hr venlafaxine 75 [...] 0 Refill(s) Start Date: 08/01/21 Status: Ordered (20 sources) Start: 07-30-20 Start: 05-29-2025 End: 06-02-2025 Start: 04-19-2025 End: 07-04-2025 Start: 04-19-2025 Start: 02-13-2025 Start: 08-01-2024 End: [...] 29, 2024 12:00am March 13, 2024 5:50pm amLODIPine 5 mg / olmesartan medoxomil 20 [...] 45 tab(s), 0 Refill(s), Pharmacy: [facility]/pharmacy #[id number], 172.7, cm, 12/08/22 14:58:00 EST, Height, kg, 12/08/22 14:58:00 EST, Dosing Weight Start Date: 01/08/23 Stop Date: 04/08/23 Status: Ordered Start: 12-11-2022 aspirin 81 mg oral delayed release tablet Dose : 81 mg = 1 tab(s), Oral, Every other day, # 15 tab(s), 5 Refill(s), Pharmacy: [facility]/pharmacy #[id number], 172.7, cm, 12/08/22 14:58:00 EST, Height, kg, 12/08/22 14:58:00 EST, Dosing Weight Start Date: 12/11/22 Status: Ordered Start: 12-05-2021 End: 11-30-2022 aspirin 81 mg oral delayed r elease tablet Dose : 81 mg = 1 tab(s), Oral, Every other day, # 90 tab(s), 3 Refill(s), Pharmacy: [facility]/pharmacy #[id number], 162, cm, 11/22/21 4:04:00 EST, Height, kg, 11/22/21 4:04:00 EST, Dosing Weight Start Date: 12/05/21 Stop Date: 11/30/22 Status: Ordered Start: 12-05-2021 End: 11-30-2022 aspirin 81 mg oral delayed r elease tablet Dose : 81 mg = 1 tab(s), Oral, qDay, # 90 tab(s), 3 Refill(s), Pharmacy: [facility]/pharmacy #[id number], 162, cm, 11/22/21 4:04:00 EST, Height, [...] 5 mg delayed relea se oral tablet (20 sources) Stimulant Laxative Start: 02-29-2024 End: 03-13-2024 budesonide 3 mg delayed rele ase oral capsule (20 sources) Corticosteroid Start: 02-29-2024 End: 06-09-2024 Start: 02-29-2024 End: 03-13-2024 take 9 mg by mouth once daily Budesonide Active 9 MG P O DAILY 90 March 13, 2024 12:00am calcium carbonate 1500 mg / cholecalciferol 0.01 mg oral tablet (20 sources) Vitamin D Start: 02-21-2024 End: 05-23-2024 Start: 02-21-2024 take 1 tablet by maida twice daily Calcium Carbonate-Vitamin D3 Active 1 [...] MEALS AND AVOID TAKING WITH IRON SUPPLEMENTS cefdinir 300 mg oral capsule (3 sources) Cephalosporin Antibacterial Start: 08-06-2025 End: 08-29-2025 cephalexin 500 mg oral capsule (19 sources) Cephalosporin Antibacterial Start: 05-22-2025 End: 05-29-2025 [...] Take 75 mg by mouth once daily. Deutetrabenazine (2 sources) Start: 04-19-2025 End: 07-04-2025 dicyclomine hydrochloride 20 mg oral tablet (20 sources) Anticholinergic Start: 05-22-2025 End: 05-29-2025 Start: 03-22-2024 End: 04-21-2024 dicyclomine 10 mg oral capsu le Dose : 20 mg = 2 cap(s), Oral, BID, PRN abd cramping, 30 to 60 minutes before meals, # 60 cap(s), 5 Refill(s), Pharmacy: [facility]/pharmacy #[id number], 172.7, cm, 03/22/24 13:19:00 EDT, Height, kg, 03/22/24 13:19:00 EDT, Dosing Weight Start Date: 04/18/24 Status: Ordered Start: 02-29-2024 End: 01-18-2025 Start: 02-29-2024 End: 02-27-2025 Start: 02-29-2024 End: 03-13-2024 take 20 mg by mouth three times daily before mealtime Dicyclomine Active 20 MG PO THREE TIMES DAILY BEFORE MEALS 180 30 March 13, 2024 12:00am docusate sodium 100 mg oral capsule (20 sources) Start: 05-29-2025 End: 07-12-2025 Start: 06-13-2024 End: 04-30-2025 Start: 07-29-2023 docusate sodiu m 100 mg oral capsule Dose : 100 mg = 1 cap(s), Oral, BID, PRN as needed for constipation, # 60 cap(s), 2 Refill(s), Pharmacy: [facility]/pharmacy #[id number], 172.7, cm, 08/27/23 13:53:00 EDT, Height, kg, 08/27/23 13:53:00 EDT, Dosing Weight Start Date: 09/08/23 Status: Ordered Docusate Sodium 100 mg tab Take by mouth once daily. Active empagliflozin 10 mg oral tab let (20 [...] mL syri nge Discontinued 40 mg SC 599October 07, 2023 [...] by maida th twice daily before meals. hyoscyamine sulfate 0.125 mg oral tablet (20 sources) Start: 12-01-2024 End: 07-12-2025 take 0.125 mg by maida th three times daily hyoscyamine sulfate 0.125 mg ODT Take 0. 125 mg by mouth three times a day. Active ibuprofen 200 mg oral tablet (4 sources) Nonsteroidal Anti-inflammatory Drug Start: 04-03-2010 End: 06-23-2022 IBUPROFEN 200 MG TAB as necessary 0 04/03/2010 06/23/2022 Discontinued (Other) Comment on above: as necessary Iron (15 sources) End: 10-20-2023 Iron 18 mg tab Take by mouth. 0 10/20/2023 Discontinued Iron 18 mg tab T quin by mouth. 0 Active Comment on above: Take by mouth. levoFLOXacin 500 mg oral tab let (1 source) Quinolone Antimicrobial Start: 08-15-2025 End: 08-20-2025 linaclotide 0.145 mg oral ca psule (20 sources) Guanylate Cyclase-C Agonist Start: 02-14-2025 End: 07-04-2025 Start: 12-12-2024 End: 04-19-2025 lisinopril 10 mg oral tablet (20 sources) Angiotensin Converting Enzyme Inhibitor Start: 06-11-2025 End: 07-12-2025 Start: 02-13-2021 End: 06-23-2022 lisinopril 5 mg oral tablet Dose : 5 mg = 1 tab(s), Oral, qDay, X 90 day(s), # 90 tab(s), 3 Refill(s), 02/08/22 10:37:00 EDT, Pharmacy: [facility], 171, cm, 12/11/20 15:33:00 EST, Height, kg, 02/11/21 13:50:00 EDT, Dosing Weight Start Date: 02/13/21 Stop Date: 02/08/22 Status: Ordered Comment on above: Take 5 mg by mouth o nce daily. loratadine 10 mg oral tablet (20 sources) Start: 06-13-2024 End: 11-23-2024 Start: 03-22-2024 Claritin 10 mg oral tablet Dose : 10 mg = 1 tab(s), Oral, qDay, # 90 tab(s), 0 Refill(s) Start Date: 03/22/24 Status: Ordered Start: 11-02-2023 Claritin 5 mg oral tablet, chewable Dose : 5 mg = 1 tab(s), Chewed, qDay, # 30 tab(s), 0 Refill(s) Start Date: 11/02/23 Status: Ordered melatonin 10 mg oral tablet (20 sources) Start: 06-13-2024 End: 11-23-2024 Start: 06-13-2024 End: 11-23-2024 take 5 mg by mouth at bedtime Melatonin 10 mg tablet Discontinued 5 mg PO BEDTIME June 13, 2024 12:00am November 23, 2024 3:24pm Start: 11-02-2023 melatonin 10 m g oral tablet, chewable Dose : 5 mg = 0.5 tab(s), Chewed, qHS, # 90 tab(s), 0 Refill(s) Start Date: 11/02/23 Status: Ordered 24 hr metFORMIN hydrochlorid e 500 mg extended release oral tablet (20 sources) Biguanide Start: 02-21-2024 End: 11-23-2024 Start: 11-18-2014 End: 07-12-2025 Start: 11-18-2014 End: 05-29-2025 take 1 tablet by mouth twice daily metFORMIN (GLUCOPHAGE) 500 mg tablet Take 1 tablet by mouth twice daily. 0 12/06/2014 Active Comment on above: Take 1 tablet by maida th twice daily. 24 hr metoprolol succinate 2 5 mg [...] release), # 15 tab(s), 6 Refill(s), [id number] 172.7, cm, 10/30/22 10:04:00 EST, Height Start Date: 10/30/22 Status: Ordered Start: 02-12-2022 End: 03-14-2022 Toprol-XL 25 mg oral tablet, extended release Dose : 25 mg = 1 tab(s), Oral, qDay, # 90 tab(s), 1 Refill(s), Pharmacy: [email or web address], 172.7, cm, 12/30/21 10:10:00 EST, Height, kg, 02/12/22 11:01:00 EDT, Dosing Weight Start Date: 02/12/22 Stop Date: 03/14/22 Status: Ordered Start: 02-04-2022 End: 03-06-2022 Toprol-XL 25 mg oral tablet, extended release Dose : 25 mg = 1 tab(s), Oral, qDay, # 30 tab(s), 0 Refill(s), [id number] 172.7, cm, 12/30/21 10:10:00 EST, Height, kg, 12/30/21 10:10:00 EST, Dosing Weight Start Date: 02/04/22 Stop Date: 03/06/22 Status: Ordered Start: 12-05-2021 End: 02-03-2022 Toprol-XL 25 mg oral tablet, extended release Dose : 25 mg = 1 tab(s), Oral, qDay, # 30 tab(s), 1 Refill(s), [id number], cm, 11/22/21 4:04:00 EST, Height, [...] on above: Take one(1) tablet d aily. ondansetron 4 mg disintegrat ing oral tablet (20 sources) Serotonin-3 Receptor Antagonist Start: 05-22-2025 End: 07-12-2025 Start: 05-22-2025 End: 05-29-2025 take 1 tablet by mouth every six hours as needed for nausea and vomiting Ondansetron 4 mg tablet,disintegrating Discontinued 4 mg PO EVERY 6 HOURS as needed for nausea and vomiting 20 0 May 22, 2025 12:00am May 29, 2025 3:38pm Start: 11-02-2024 End: 11-28-2024 24 hr oxybutynin chloride 5 mg extended [...] day, # 90 tab(s), 1 Refill(s), Pharmacy: [facility]/pharmacy #[id number], 172.7, cm, 10/29/23 11:29:00 EST, Height, kg, 10/29/23 11:29:00 EST, Dosing Weight Start Date: 10/29/23 Status: Ordered Start: 10-29-2023 take 1 tablet by maida th every hour, then take 0.5 tablet by mouth once daily oxybutynin 5 mg/24 hours oral tablet, extended release Dose : 2.5 mg = 0.5 tab(s), Oral, qDay, # 90 tab(s), 1 Refill(s), Pharmacy: [facility]/pharmacy #[id number], 172.7, cm, 10/29/23 11:29:00 EST, Height, kg, 10/29/23 11:29:00 EST, Dosing Weight Start Date: 10/29/23 Status: Ordered Start: 09-28-2023 End: 10-07-2023 Start: 06-15-2023 take 1 tablet by maida th every hour, then take 1 tablet by mouth once daily oxybutynin 5 mg/24 hours oral tablet, extended release Dose : 5 mg = 1 tab(s), Oral, qDay, # 90 tab(s), 0 Refill(s), Pharmacy: [facility]/pharmacy #[id number], 172.7, cm, 05/18/23 10:38:00 EDT, Height, kg, 05/18/23 10:38:00 EDT, Dosing Weight Start Date: 06/15/23 Status: Ordered Start: 02-12-2022 take 1 tablet by maida th every hour, then take 1 tablet by mouth once daily oxybutynin 5 mg/24 hours oral tablet, extended release Dose : 5 mg = 1 tab(s), Oral, qDay, stop as of 11/27/22, # 90 tab(s), 1 Refill(s), Pharmacy: [facility], 172.7, cm, 12/30/21 10:10:00 EST, Height, kg, 02/12/22 11:01:00 EDT, Dosing Weight Start Date: 02/12/22 Status: Ordered Start: 02-04-2022 take 1 tablet by madia th every hour, then take 1 tablet by mouth once daily oxybutynin 5 mg/24 hours oral tablet, extended release Dose : 5 mg = 1 tab(s), Oral, qDay, # 30 tab(s), 0 Refill(s), Pharmacy: [facility]/pharmacy #[id number], 172.7, cm, 12/30/21 10:10:00 EST, Height, kg, 12/30/21 10:10:00 EST, Dosing Weight Start Date: 02/04/22 Status: Ordered Start: 02-13-2021 take 1 tablet by maida th every hour, then take 1 tablet by mouth once daily oxybutynin 5 mg/24 hours oral tablet, extended release Dose : 5 mg = 1 tab(s), Oral, qDay, # 90 tab(s), 3 Refill(s), Pharmacy: [facility], 171, cm, 12/11/20 15:33:00 EST, [...] mg by mouth e very other day. oxyCODONE hydrochloride 5 mg oral tablet (20 sources) Opioid Agonist Start: 04-30-2025 End: 07-04-2025 pantoprazole 40 mg delayed r elease oral tablet (20 sources) Proton Pump Inhibitor Start: 11-18-2014 End: 04-30-2025 Start: 11-18-2014 End: 04-30-2025 Comment on above: Take 1 tablet by maida th twice daily. phenazopyridine hydrochlorid e 100 mg oral tablet (20 sources) Start: 04-19-2025 End: 07-12-2025 polyethylene glycol 400 2.5 mg/ml ophthalmic solution (20 sources) Start: 01-23-2025 End: 06-02-2025 Start: 01-23-2025 [...] polysaccharide iron complex 150 mg oral capsule (20 sources) Start: 03-13-2024 End: 05-23-2024 microencapsulated potassium chloride 20 meq extended release oral tablet (20 sources) Start: 03-13-2024 End: 05-23-2024 Start: 02-17-2022 potassium chlo ride 20 mEq oral tablet, extended release Dose : 20 mEq = 1 tab(s), Oral, qDay, Take with food, # 30 tab(s), 6 Refill(s), Pharmacy: [facility]/pharmacy #[id number], 172.7, cm, 02/17/22 15:57:00 EDT, Height, kg, 02/17/22 15:57:00 EDT, Dosing Weight Start Date: 02/17/22 Status: Ordered predniSONE 50 mg oral tablet (4 sources) Start: 11-27-2022 End: 12-02-2022 predniSONE 50 mg oral tablet Dose : 25 mg = 0.5 tab(s), Oral, qDayM, # 2.5 tab(s), 0 Refill(s), Pharmacy: [facility]/pharmacy #[id number], 172.7, cm, 11/27/22 14:14:00 EST, Height [...] Start: 09-28-2023 take 0.5 tablet by m out twice daily sacubitril-valsartan Active 0.5 TABLET PO [...] End: 10-07-2023 spironolactone Discontinued 0.5 {tbl} PO September 28, 2023 1:00am October 07, 2023 1:53pm EDEMA Start: 09-28-2023 End: 10-07-2023 spironolactone Discontinued 0.5 {tbl} PO MOFR September 28, 2023 1:00am October 07, 2023 1:53pm Start: 09-28-2023 End: 10-07-2023 spironolactone Discontinued 0.5 TABLET PO MOFR September 28, 2023 1:00am October 07, 2023 [...] 30 tab(s), 3 Refill(s), Pharmacy: [id number], 172.7, cm, 03/20/22 8:38:00 EDT, Height, kg, [...] tablet See Instructions, 1 tab(s) Oral qDay mon,wed,wed, # 15 tab(s), 3 Refill(s), Pharmacy: [facility]/pharmacy #[id number], 172.7, cm, 12/24/21 2:11:00 EST, Height, kg, 12/24/21 2:11:00 EST, Dosing Weight Start Date: 12/25/21 Status: Ordered Comment on above: 12.5 mg. 12.5 mg every other day. vancomycin 25 mg/ml oral solution (20 sources) Glycopeptide Antibacterial Start: 02-29-20 End: 03-13-20 vitamin b12 0.5 mg oral tablet (20 sources) Vitamin B12 Start: 06-13-20 End: 01-18-20 25 take 1 tablet by mouth once daily Cyanocobalamin (Vitamin B-12) 500 mcg tablet Discontinued 500 ug PO DAILY June 13, 2024 12:00am January 18, 2025 2:30pm Start: 07-29-2023 End: 02-27-2025 Start: 07-29-2023 Vitamin B12 Se e Instructions, 0 Refill(s) Start Date: 07/29/23 Status: Ordered vitamin O33-okern acid (20 sources) Start: 09-28-2023 End: 10-07-2023 vitamin F54-qyqzs acid Disco ntinued 1 {tbl} PO DAILY September 28, 2023 1:00am November 16th, 2023 1:56pm vitamin Start: 09-28-2023 End: 10-07-2023 vitamin L16-xrfcf acid Disco ntinued 1 {tbl} PO DAILY September 28, 2023 1:00am October 07, 2023 1:56pm Start: 09-28-2023 End: 10-07-2023 take 1 tablet by mouth once daily vitamin J25-pmele acid Discontinued 1 TABLET PO DAILY September 28, 2023 1:00am October 07, 2023 1:56pm Start: 09-28-2023 End: 10-07-2023 take 1 tablet by mouth once daily vitamin T40-ybtlj acid Discontinued 1 TABLET PO DAILY September 28, 2023 12:00am October 07, 2023 12:56pm Start: 09-28-2023 take 1 tablet by maida th once daily vitamin L69-clwlv acid Active 1 TABLET PO DAILY September 28, 2023 12:00am Start: 09-28-2023 vitamin B12-fo lic acid Active PO September 28, 2023 12:00am Problems Active Problems Problem Classification Problem Date Documented Date Episodic/Chronic Acute and unspecified renal failure (20 sources) Acute renal failure syndrome; Translations: [Acute [...] stage 3 (moderate)] Onset: 2 12-30-2019 Chronic Conditions associated with dizziness or vertigo (20 sources) Peripheral vertigo; Translations: [Other peripheral vertigo, unspecified ear] Onset: 0 01-14-2010 Episodic Conduction disorders (20 sources) Left bundle branch block; Translations: [Cardiac pacemaker in situ] Onset: 5 05-01-2022 Chronic Comment on above: 05/12/2022 Congestive heart failure; nonhypertensive (20 sources) Acute combined systolic and diastolic heart failure; Translations: [Acute combined systolic (congestive) and diastolic (congestive) heart failure] Onset: 2 Chronic Coronary atherosclerosis and other heart disease (20 sources) Calcification of coronary artery; Translations: [Coronary arteriosclerosis] 10-01-2020 Chronic Coronary atherosclerosis and other heart disease (20 sources) Stented coronary artery; Translations: [Presence of [...] and other anemia (1 source) Iron deficiency anemia; Translations: [Iron deficiency anemia, unspecified] 07-10-2025 Episodic Diabetes mellitus with complications (20 sources) [...] 2 07-11-2019 Chronic Fluid and electrolyte disorders (20 sources) Hyperosmolality with hypernatremia; Translations: [Hyperosmolality and hypernatremia] Episodic Gastroduodenal ulcer (except hemorrhage) (20 sources) Ulcer of duodenum 09-06-2019 Chronic Gastrointestinal hemorrhage (20 sources) Peptic ulcer with hemorrhage 07-11-2019 Chronic Genitourinary symptoms and ill-defined conditions (20 sources) Urge incontinence of urine; Translations: [Urge incontinence] Onset: 5 10-01-2020 Chronic Genitourinary symptoms and ill-defined conditions (17 sources) Microscopic hematuria; Translations: [Nocturia] Onset: 5 04-29-2023 Episodic Heart valve disorders (1 source) Non-rheumatic mitral regurgitation ; Translations: [Nonrheumatic mitral (valve) insufficiency] Onset: 2 Chronic Hypertension with complications and secondary hypertension (20 sources) Hypertensive heart disease with congestive heart failure; Translations: [Hypertensive heart failure] 04-29-2023 Chronic Intestinal infection (20 sources) Clostridium difficile colitis; Translations: [Enterocolitis due to Clostridium difficile, not specified as recurrent] 02-29-2024 Episodic Malaise and fatigue (2 sources) Malaise and fatigue; Translations: [Chronic fatigue, unspecified] Onset: 5 07-10-2025 Chronic Mood disorders (20 sources) Seasonal affective disorder; Translations: [Severe major depression] 11-02-2022 Chronic Nausea and vomiting (18 sources) Nausea and vomiting; Translations: [Nausea with vomiting, unspecified] 05-22-2025 Episodic Noninfectious gastroenteritis (20 sources) Colitis; Translations: [Noninfective gastroenteritis and colitis, unspecified] 02-21-2024 Episodic Nutritional deficiencies (20 sources) Vitamin D deficiency; Translations: [Vitamin D deficiency, unspecified] Onset: 5 10-03-2019 Chronic Nutritional deficiencies (20 sources) Calcium deficiency; Translations: [Dietary calcium deficiency] 04-20-2025 Episodic Occlusion or stenosis of precerebral arteries (1 source) Occlusion and stenosis of bilateral carotid arteries; Translations: [Occlusion and stenosis of bilateral carotid arteries] Onset: 5 Chronic Other aftercare (1 source) Long-term current use of oral 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 medication; Translations: [retirement (current) use of oral 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 drugs] Episodic Other aftercare (2 sources) Post-discharge follow-up 03-22-2024 Episodic Other and ill-defined cerebrovascular disease (20 sources) Cerebrovascular disease; Translations: [Other cerebrovascular disease] Onset: 9 08-14-2009 Chronic Other and ill-defined cerebrovascular disease (5 sources) Cerebrovascular disease, unspecified; Translations: [Unspecified cerebrovascular disease] 10-01-2023 Chronic Other circulatory disease (15 sources) History of cerebrovascular accident; Translations: [Personal history of transient ischemic attack (TIA), and cerebral infarction without residual deficits] Episodic Other circulatory disease (4 sources) Orthostatic hypotension 12-16-2023 Episodic Other circulatory disease (1 source) Personal history of transient ischemic attack (TIA), and cerebral infarction without residual deficits; Translations: [History of stroke] Onset: Episodic Other connective tissue disease (10 sources) [...] muscle] 10-07-2023 Episodic Other connective tissue disease (20 sources) Cramp in lower limb; Translations: [Cramp and spasm] 02-29-2024 Episodic Other connective tissue disease (1 source) Cramp and spasm; Translations: [Cramp of limb] 03-15-2024 Episodic Other diseases of bladder and urethra (20 sources) Overactive bladder; Translations: [Overactive bladder] 10-01-2023 Chronic Other diseases of bladder and urethra (5 sources) Overactive bladder; Translations: [Hypertonicity of bladder] 10-07-2023 Chronic Other disorders of stomach and duodenum (20 sources) Stenosis of duodenum; Translations: [Obstruction of duodenum] 06-07-2025 Chronic Other disorders of stomach and duodenum (1 source) Obstruction of duodenum; Translations: [Obstruction of duodenum] Onset: Chronic Other endocrine disorders (12 sources) Secondary [...] [Other constipation] 02-13-2025 Episodic Other gastrointestinal disorders (20 sources) History of ischemic colitis; Translations: [Personal history of other diseases of the digestive system] 10-17-2024 Episodic Other gastrointestinal disorders (13 sources) Diarrhea; Translations: [Diarrhea, unspecified] 06-19-2025 Episodic Other hematologic conditions (20 sources) RBC [...] Episodic Other infections; including parasitic (12 sources) Late effects of other and unspecified infectious and parasitic diseases; Translations: [Post-acute sequelae of COVID-19 (PASC)] 07-10-2025 Chronic Other infections; including parasitic (12 sources) Infestation by bed bug 11-27-2022 Episodic Other lower respiratory disease (20 sources) Multiple nodules of lung; Translations: [Other nonspecific abnormal finding of lung field] 04-17-2021 Episodic Other lower respiratory disease (20 sources) Cough; Translations: [Cough] 02-19-2024 Episodic Other lower respiratory disease (20 sources) Dyspnea; Translations: [Other forms of dyspnea] Onset: 5 12-13-2024 Episodic Other lower respiratory disease (15 sources) Hypoxia; Translations: [Hypoxemia] 06-02-2025 Episodic Other lower respiratory disease (20 sources) Dyspnea on exertion; Translations: [Other forms of dyspnea] 07-12-2025 Episodic Other lower respiratory disease (1 source) Shortness of breath; Translations: [Shortness of breath] Onset: Episodic Other lower respiratory disease (1 source) Dyspnea, unspecified; Translations: [Dyspnea, unspecified] Onset: Episodic Other nervous system disorders (2 sources) Parkinsonism due to drug; 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 Other nervous system disorders (1 source) Aphasia; Translations: [Aphasia] 07-10-2025 Chronic Other nervous system disorders (1 source) Aphasia; Translations: [Aphasia] Onset: Chronic Other nervous system disorders (4 sources) Finding of hand region; Translations: [Tremor, unspecified] Episodic Other nervous system disorders (18 sources) Tremor; Translations: [Tremor, unspecified] 11-02-2022 Episodic Other nervous system disorders (16 sources) Abnormal gait 11-27-2022 Episodic Other nervous system disorders (1 source) Impaired cognition; Translations: [Other symptoms and signs involving cognitive functions and awareness] 07-10-2025 Episodic Other nervous system disorders (1 source) Loss of sense of smell; Translations: [Anosmia] 07-10-2025 Episodic Other nervous system disorders (1 source) Loss of taste; Translations: [Parageusia] 07-10-2025 Episodic Other nervous system disorders (2 sources) Other disturbances of smell and taste; Translations: [Disturbances of sensation of smell and taste] Onset: 5 07-10-2025 Episodic Other nervous system disorders (1 source) Tremor, unspecified; Translations: [Tremor] Onset: Episodic Other nervous system disorders (1 source) Other symptoms and signs involving cognitive functions and awareness; Translations: [Brain fog] Onset: 5 Episodic Other nervous system disorders (1 source) Anosmia; Translations: [Anosmia] Onset: 5 Episodic Other nervous system disorders (1 source) Parageusia; Translations: [Ageusia] Onset: 5 Episodic Other non-traumatic joint disorders (20 sources) Ankle pain 04-04-2020 Episodic Other nutritional; endocrine; and metabolic disorders (1 source) Disorder of protein metabolism; Translations: [Other disorders of plasma-protein metabolism, not elsewhere classified] Onset: 2 Chronic Other nutritional; endocrine; and metabolic disorders (17 sources) History of iron deficiency 11-02-2022 Episodic Other nutritional; endocrine; and metabolic disorders (20 sources) Failure to thrive 07-01-2025 Episodic Other nutritional; endocrine; and metabolic disorders (1 source) Unintentional weight loss; Translations: [Abnormal weight loss] 07-10-2025 Episodic Other nutritional; endocrine; and metabolic disorders (1 source) Abnormal weight loss; Translations: [Unintentional weight loss] Onset: 5 Episodic Other screening for suspected conditions (not mental disorders or infectious disease) (20 sources) Partial thromboplastin time increased; Translations: [Abnormal coagulation profile] 08-01-2024 Episodic Paralysis (20 sources) Cerebral palsy; Translations: [Hemiparesis] Onset: 3 11-27-2022 Chronic Parkinson`s disease (20 sources) Parkinsonism; Translations: [Parkinson's disease] Onset: 2 Chronic Samantha-; endo-; and myocarditis; cardiomyopathy (except that caused by tuberculosis or sexually transmitted disease) (4 sources) Cardiomyopathy; Translations: [Cardiomyopathy, unspecified] Onset: 2 Chronic Peripheral and visceral atherosclerosis (20 sources) Peripheral vascular disease; Translations: [Atherosclerosis of aorta] Onset: 4 04-29-2023 Chronic Peripheral and visceral atherosclerosis (20 sources) Occlusion of superior mesenteric artery; Translations: [Acute infarction of intestine, part and extent unspecified] 09-14-2024 Episodic Pneumonia (except that caused by tuberculosis or sexually transmitted disease) (20 sources) Pneumonia; Translations: [Pneumonia, unspecified organism] Onset: 5 06-02-2025 Episodic Residual codes; unclassified (16 sources) Chill 11-27-2022 Episodic Residual codes; unclassified (20 sources) Insomnia; Translations: [Insomnia, unspecified] 10-07-2023 Episodic Residual codes; unclassified (4 sources) Screening due 11-26-2023 Episodic Residual codes; unclassified (1 source) Insomnia, unspecified; Translations: [Insomnia, unspecified] 03-15-2024 Episodic Respiratory failure; insufficiency; arrest (adult) (2 sources) Hypoxemic respiratory failure; Translations: [Respiratory failure, unspecified with hypoxia] Onset: 5 07-10-2025 Episodic Screening and history of mental health and substance abuse codes (20 sources) Tobacco use and exposure - finding 08-13-2020 Chronic Substance-related disorders (20 sources) Nicotine dependence; Translations: [Nicotine dependence, cigarettes, uncomplicated] Onset: Chronic Superficial injury; contusion (20 sources) Contusion of hip; Translations: [Contusion of [...] Pelvic and perineal pain Unclassified (1 source) 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; Translations: [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] Onset: 5 Unclassified (1 source) Post-acute sequelae of COVID-19 (PASC); Translations: [Post-acute sequelae of COVID-19 (PASC)] Onset: 5 Unclassified (1 source) Other low back pain; Translations: [Other low back pain] Onset: 5 Urinary tract infections (20 sources) Urinary tract infectious disease; Translations: [Urinary tract infection, site not specified] 05-22-2025 Episodic Past or Other Problems Problem Classification Problem Date Documented Da te Episodic/Chronic Abdominal pain (20 sources) Inguinal pain; Translations: [Chronic abdominal pain] Onset: 3 08-27-2023 Episodic Comment on above: over bladder area Biliary tract disease (20 sources) Biliary calculus; Translations: [Calculus of gallbladder without cholecystitis without obstruction] Onset: 5 12-26-2014 Episodic Deficiency and other anemia (2 sources) Iron deficiency anemia, unspecified; Translations: [Iron deficiency anemia, unspecified iron deficiency anemia type] Onset: 5 Episodic Deficiency and other anemia (1 source) Anemia, unspecified; Translations: [Anemia, unspecified] Onset: 5 Episodic Gastrointestinal hemorrhage (20 sources) Lower gastrointestinal hemorrhage; Translations: [Gastrointestinal hemorrhage, unspecified] Onset: 5 02-21-2024 Episodic Malaise and fatigue (20 sources) Asthenia; Translations: [Weakness] Onset: 2 Episodic Other and unspecified benign neoplasm (20 sources) History of polyp of colon; Translations: [Personal history of colonic polyps] Onset: 5 Resolved: 5 Episodic Other gastrointestinal disorders (1 source) Other constipation; Translations: [Other constipation] Onset: 5 Episodic Other injuries and conditions due to external causes (1 source) Encounter for examination and observation following other accident; Translations: [Encounter for examination and observation following other accident] Onset: 5 Episodic Other lower respiratory disease (1 source) Solitary pulmonary nodule; Translations: [Solitary pulmonary nodule] Onset: 4 Episodic Other lower respiratory disease (1 source) Other forms of dyspnea; Translations: [Other forms of dyspnea] Onset: 5 Episodic Other nervous system disorders (1 source) Other abnormalities of gait and mobility; Translations: [Other abnormalities of gait and mobility] Onset: 5 Episodic Pleurisy; pneumothorax; pulmonary collapse (1 source) Interstitial emphysema; Translations: [Interstitial emphysema] Onset: 4 Episodic Syncope (20 sources) Syncope and collapse; Translations: [Syncope and collapse] Onset: 5 11-28-2024 Episodic Results Test Name Value Interpretation Reference Range Facility /ELIE.BUSon 09-03-2025 /ANNIE Normal [facility] Gastroenterology Visit Repor ton 08-29-2025 Gastroenterology Visit Report Normal [facility] No Panel InformationOrdered By: Angelita Garcia on 08-14-2025 Negative [facility] 0.2 mg/dL [facility] 1.010 [facility] 6 [facility] Negatve [facility] Office Visit Reporton 2024 Office Visit Report Normal [facility] 36on 08-07-2025 36 Name of caller: Beatrice lobo Contact phone number: [phone] Relationship to Patient: spouse/SO Provider: Dr. Lopez Practice: [facility], [place], operated by [facility] Chief Complaint/Reason for Call: Patient Song to request refill for patient's oxyCODONE HCl (5 MG Tablet). Song stated patient is completley out and will need refill for tomorrow. Please contact Song and advise. Best time of day caller can be reached: any Patient advised that office/PCP has 24-48 business hours to return their call: Yes Normal [facility] MR/ELIE.BUSon 08-06-2025 /ELIE.BERT Normal [facility] No Panel InformationOrdered By: Angelita Garcia on 08-06-2025 Negative [facility] 1.010 [facility] 7.5 [facility] Trace [facility] Positive [facility] 36on 08-04-2025 36 S: Song spoke with [facility] nurse regarding medication refill B: Onset of symptoms/concern 08/04/25 A: States patient will need refill of Oxycodone 5 mg tablets on Wednesday. States they have 3 tablets left. Song confirmed no known drug allergies and pharmacy as [facility]. R: Song understands care advice that office is closed and a message will be sent to office for review during office hours. No further needs at this time. Patient spouse instructed to call back with new or worsening symptoms. Reason for Disposition Caller requesting a CONTROLLED substance prescription refill (e.g., narcotics, ADHD medicines) Protocols used: Medication Refill and Renewal Hrhz-IBIEI-DN Normal [facility] Pacemaker Checkon 07-26-2025 Pacemaker Check Normal [facility] Gastroenterology Visit Repor ton 07-20-2025 Gastroenterology Visit Report Normal [facility] 6 Minute Walk Teston 07-19- 025 6 Minute Walk Test Normal [facility] Pulmonary Visit Reporton Pulmonary Visit Report Normal [facility] CNOVon 07-10-2025 CNOV Office Visit (PUMBHT ) MANSI CARO ([id number]) 1955 F Date Time Provider Department 07/10/25 10:00 AM [facility] your visit today, we recorded the following information about you: Temperature Pulse Respiration Blood pressure 98.4 degrees 93/minute 20/minute 164/75 Leonel Hurtado APRN.FOUNDATION RELATIONS MANAGER 07/10/2025 10:52 AM Addendum Welcome to [facility]! The 'COV' represents SARS-CoV-2, also known as COVID-19. Our clinic's mission is to assess and guide individuals who are experiencing long-term effects of COVID-19 to care paths tailored to fit each person. We are a referral service. As a referral center for post-COVID related conditions, we cannot provide work, FMLA, disability or other forms, or surgical clearance. You will have an initial visit as well as follow-up virtual visit(s) as needed in which all [facility] testing, imaging, and labs will be discussed. From there on it is expected that you continue to follow up with your PCP and the specialists established through this program. You may receive follow-up calls every 3 months for 1 year to monitor your progress. You just had your initial visit with the [facility] clinic! Next, you will be undergoing additional tests to further assess your current symptoms. Once you have these tests completed, you will have another visit to review these results. We will then direct you down the appropriate care path with a specialist for further treatment based on those results and your current symptoms. ------ Fatigue resources: https://my.[facility].org/health/sympto ms/81242-npnagub https://[employer].[facility].org/health/diseas es/50736-fzwwwlq-lavam halomyelitis-- myoccrp-sabzcud-mirwkm me-me-cfs http://www.[facility].ca/a oqr-jgyy-fybs/Document s/post_covid-19_fatigu e.pdf https://www.[facility] .nhs.uk/wp-content/u ploads//OH-090. 82-Tmyb-WKNAD- -Leaflet.pdf https://[employer]/wp-content/uploads //Wakdm-ohwmf-q rczoh-hrl-wdh- igue.pdf ------ You may call [phone] to reach Wellness (Integrative medicine). We work with the following providers: Drs. Saba Fleming/Jose Luis Alvarez/Pina Lundberg/Antonio Seymour/Yoandy Staton. The providers work with LDN. ------ Olfactory Training for Smell Disruption What if you could train yourself to smell again? That's the thinking behind olfactory training. -This is a safe, self-driven treatment with no side effects that has been helpful, especially in post-viral cases. -It utilizes what's called the odor prism: using primary odors to retrain the nose, relying on memory and experience, to train those nerves to come back to life. -Just as there are primary colors (red, blue and yellow), there are primary smells and each has a corresponding example that is typically used to represent it: 1. flowery (raul) 2. fruity (lemon) 3. aromatic (cloves or lavender) 4. resinous (eucalyptus) -With these four primary smells, we ask the patient to take each smell, usually in the form of an oil or scent stick, put it under their nose and deeply inhale that scent for 15-20 seconds two to three times a day. -And while you're inhaling, you try to think about and remember what roses smell like. You want to picture roses. -You are combining that visual imagery with the stimulation of an isolated scent. -After going through the process with that flowery scent, you repeat the same steps with the other three scents. -The exercise is repeated tch-ac-ppwrk times a day and it is possible to get an improvement in both objective and subjective smell tests at three months, six months and even up to a year. -In some situations, steroid sprays might be used, too, to cause an even higher improvement. Consider trying Flonase (available zycx-nxa-mhknsnj) 1 spray in each nostril once daily. Technique for nasal spray administration: First, look slightly down, breathe normally, you do not need to sniff while you spray. To use the nose spray, place the tip in your nose with the opposite hand (left hand, right side of nose, right hand, left side of nose), and aim or point toward the outside of the nose. Do not sniff or snort medication afterwards as this can cause most of the medication to be swallowed. Rather, dab your nose with a tissue if any runs out. ------ Miracle Fruit Berries for Taste Disruption Taste changes in patients who have long COVID are common and can (more content not included)... Normal [facility] Anion gap in Serum or Plasma Ordered By: Mario Rosario on 07-09-2025 Anion gap [Moles/Vol] 7 mmol/L - [facility] BUN/creatinine ratioOrdered By: Mario Rosario on 07-09-2025 Urea nitrogen/Creatinine [Mass ratio] 17.3 mg/mg - [facility] Basic Metabolic Profile (BMP )on 07-09-2025 BUN/CRE 17.3 RATIO Normal - [facility] Comment on above: Order Comment: 310-1 Performed By: #### L 100.0500, L500.2500 ####[facility] [address] [place], [address] Calcium [Mass/Vol] 8.6 mg/dL Normal 7.6-11.0 [facility] Comment on above: Order Comment: 310-1 Performed By: #### L 100.0500, L500.2500 ####[facility] [address] [place], [address] Chloride [Moles/Vol] 108 mmol/L Normal 98-108 [facility] Comment on above: Order Comment: 310-1 Performed By: #### L 100.0500, L500.2500 ####[facility] [address] [place], [address] CO2 [Moles/Vol] 28.3 mmol/L Normal 21.0-32.0 [facility] Comment on above: Order Comment: 310-1 Performed By: #### L 100.0500, L500.2500 ####[facility] [address] [place], [address] Creatinine [Mass/Vol] 0.83 mg/dL Normal 0.70-1.20 [facility] Comment on above: Order Comment: 310-1 Performed By: #### L 100.0500, L500.2500 ####[facility] [address] [place], [address] GAP 7 Normal 5-15 [facility] Comment on above: Order Comment: 310-1 Performed By: #### L 100.0500, L500.2500 ####[facility] [address] [place], [address] GFR/1.73 sq M.predicted among non-blacks MDRD (S/P/Bld) [Vol rate/Area] 75 mL/min/{1.73_m2} Normal >60 [facility] Comment on above: Order Comment: 310-1 Result Comment: mL/m in/1.73m2 CKD-EPI Creatinine Equation (2020) Performed By: #### L 100.0500, L500.2500 ####[facility] [address] [place], [address] Glucose [Mass/Vol] 129 mg/dL High 70-99 [facility] Comment on above: Order Comment: 310-1 Performed By: #### L 100.0500, L500.2500 ####[facility] [address] [place], [address] Potassium [Moles/Vol] 3.7 mmol/L Normal 3.3-5.1 [facility] Comment on above: Order Comment: 310-1 Performed By: #### L 100.0500, L500.2500 ####[facility] [address] [place], [address] Sodium [Moles/Vol] 143 mmol/L Normal 133-145 [facility] Comment on above: Order Comment: 310-1 Performed By: #### L 100.0500, L500.2500 ####[facility] [address] [place], [address] Urea nitrogen [Mass/Vol] 14 mg/dL Normal 4-19 [facility] Comment on above: Order Comment: 310-1 Performed By: #### L 100.0500, L500.2500 ####[facility] [address] [place], [address] CBC-Complete Blood Cnt No Di ffon 07-09-2025 Erythrocyte distribution width (RBC) [Ratio] 14.0 % Normal 11.6-14.6 [facility] Comment on above: Order Comment: 310-1 Performed By: #### L 100.0500, L500.2500 ####[facility] [address] [place], [address] Hematocrit (Bld) [Volume fraction] 31.1 % Low 37-47 [facility] Comment on above: Order Comment: 310-1 Performed By: #### L 100.0500, L500.2500 ####[facility] [address] [place], [address] Hemoglobin (Bld) [Mass/Vol] 9.6 g/dL Low 12.0-15.0 [facility] Comment on above: Order Comment: 310-1 Performed By: #### L 100.0500, L500.2500 ####[facility] [address] [place], [address] MCH (RBC) [Entitic mass] 30.0 pg Normal 27.0-32.0 [facility] Comment on above: Order Comment: 310-1 Performed By: #### L 100.0500, L500.2500 ####[facility] [address] [place], [address] MCHC (RBC) [Mass/Vol] 30.9 g/dL Low 32-36 [facility] Comment on above: Order Comment: 310-1 Performed By: #### L 100.0500, L500.2500 ####[facility] [address] [place], [address] MCV (RBC) [Entitic vol] 97.2 fL Normal 81-[address] [facility] Comment on above: Order Comment: 310-1 Performed By: #### L 100.0500, L500.2500 ####[facility] [address] [place], [address] Platelet mean volume (Bld) [Entitic vol] 11.7 fL Normal 6.2-12.0 [facility] Comment on above: Order Comment: 310-1 Performed By: #### L 100.0500, L500.2500 ####[facility] [address] [place], [address] Platelets (Bld) [#/Vol] 169 10*3/uL Normal 150-450 [facility] Comment on above: Order Comment: 310-1 Performed By: #### L 100.0500, L500.2500 ####[facility] [address] [place], [address] RBC (Bld) [#/Vol] 3.20 10*6/uL Low 4.2-5.4 [facility] Comment on above: Order Comment: 310-1 Performed By: #### L 100.0500, L500.2500 ####[facility] [address] [place], [address] RDW SD 49.8 fl High 35.1-43.9 [facility] Comment on above: Order Comment: 310-1 Performed By: #### L 100.0500, L500.2500 ####[facility] [address] [place], [address] WBC (Bld) [#/Vol] 4.2 10*3/uL Low 4.4-11.0 [facility] Comment on above: Order Comment: 310-1 Performed By: #### L 100.0500, L500.2500 ####[facility] [address] [place], [address] Carbon dioxide, total [Moles /volume] in Central venous bloodOrdered By: Mario Rosario on 07-09-2025 CO2 [Moles/Vol] 28.3 mmol/L 21.0-32.0 [facility] Chloride assayOrdered By: Shelton on 07-09-2025 Chloride [Moles/Vol] 108 mmol/L 98-108 [facility] Erythrocyte distribution wid th ratioOrdered By: Mario Rosario on 07-09-2025 Erythrocyte distribution width (RBC) [Ratio] 14.0 % 11.6-14.6 [facility] Erythrocyte distribution wid th standard deviationOrdered By: Mario Rosario on 07-09-2025 Erythrocyte distribution width (RBC) [Ratio] 49.8 fl High 35.1-43.9 [facility] Glomerular filtration rate ( GFR) estimation/1.73 sq m using serum, plasma, or whole bOrdered By: Mario Rosario on 07-09-2025 GFR/1.73 sq M.predicted among non-blacks MDRD (S/P/Bld) [Vol rate/Area] 75 mL/min/{1.73_m2} >60 [facility] Hematocrit Auto (Bld) [Volum e fraction]Ordered By: Mario Rosario on 07-09-2025 Hematocrit (Bld) [Volume fraction] 31.1 % Low 37-47 [facility] Hemoglobin measurementOrdere d By: Mario Rosario on 07-09-2025 Hemoglobin (Bld) [Mass/Vol] 9.6 g/dL Low 12.0-15.0 [facility] MCV (mean corpuscular volume ) determinationOrdered By: Mario Rosario on 07-09-2025 MCV (RBC) [Entitic vol] 97.2 fL 81-[address] [facility] Mean corpuscular hemoglobin (MCH) determinationOrdered By: Mario Rosario on 07-09-2025 MCH (RBC) [Entitic mass] 30.0 pg 27.0-32.0 [facility] Platelet countOrdered By: Shelton on 07-09-2025 Platelets (Bld) [#/Vol] 169 10*3/uL 150-450 [facility] Potassium measurement (mass/ volume)Ordered By: Mario Rosario on 07-09-2025 Potassium (Unsp spec) [Mass/Vol] 3.7 mmol/L 3.3-5.1 [facility] RBC Auto (Bld) [#/Vol]Ordere d By: Mario Rosario on 07-09-2025 RBC (Bld) [#/Vol] 3.20 10*6/uL Low 4.2-5.4 [facility] Serum creatinine measurement (mass/volume)Ordered By: Mario Rosario on 07-09-2025 Creatinine [Mass/Vol] 0.83 mg/dL 0.70-1.20 [facility] Serum glucose measurement (m ass/volume)Ordered By: Mario Rosario on 07-09-2025 Glucose [Mass/Vol] 129 mg/dL High 70-99 [facility] Serum or plasma calcium loco urement (mass/volume)Ordered By: Mario Rosario on 07-09-2025 Calcium [Mass/Vol] 8.6 mg/dL 7.6-11.0 [facility] Serum or plasma urea nitroge n measurement (mass/volume)Ordered By: Mario Rosario on 07-09-2025 Urea nitrogen [Mass/Vol] 14 mg/dL 4-19 [facility] Sodium levelOrdered By: Mario Rosario on 07-09-2025 Sodium [Moles/Vol] 143 mmol/L 133-145 [facility] White blood cell (WBC) count Ordered By: Mario Rosario on 07-09-2025 WBC (Bld) [#/Vol] 4.2 10*3/uL Low 4.4-11.0 [facility] Absolute lymphocyte countOrd ered By: Camacho Aguilar on 07-04-2025 Lymphocytes Auto (Unsp spec) [#/Vol] 1.49 10*3/uL 0.83-4.51 [facility] Automated lymphocyte count a s percentage of total leukocytesOrdered By: Camacho Aguilar on 07-04-2025 Lymphocytes/100 WBC Auto (Unsp spec) 44.0 % High 19-41 [facility] Basophil percentageOrdered B y: Camacho Aguilar on 07-04-2025 Basophils/100 WBC (Bld) 0.3 % 0-[address] [facility] CBC W/Diff, Automatedon 06-22 Absolute Lymph 1.49 X10 3/uL Normal 0.83-4.51 [facility] Comment on above: Performed By: #### L 100.0100 ####[facility] [address] [place], [address] Absolute Neut 1.3 X10 3/uL Low 2.0-7.7 [facility] Comment on above: Performed By: #### L 100.0100 ####[facility] [address] [place], [address] Basophils/100 WBC (Bld) 0.3 % Normal 0-[address] [facility] Comment on above: Performed By: #### L 100.0100 ####[facility] [address] [place], [address] Eosinophils/100 WBC (Bld) 4.4 % Normal 0-5 [facility] Comment on above: Performed By: #### L 100.0100 ####[facility] [address] [place], [address] Erythrocyte distribution width (RBC) [Ratio] 13.4 % Normal 11.6-14.6 [facility] Comment on above: Performed By: #### L 100.0100 ####[facility] [address] [place], [address] Hematocrit (Bld) [Volume fraction] 30.5 % Low 37-47 [facility] Comment on above: Performed By: #### L 100.0100 ####[facility] [address] [place], [address] Hemoglobin (Bld) [Mass/Vol] 9.9 g/dL Low 12.0-15.0 [facility] Comment on above: Performed By: #### L 100.0100 ####[facility] [address] [place], [address] IG% 0.300 Normal 0.0-0.9 [facility] Comment on above: Result Comment: IG% - Immature Granulocytes (promyelocytes, myelocytes andmetamyelocytes) > 1% indicates that a LEFT SHIFT is Present. Performed By: #### L 100.0100 ####[facility] [address] [place], [address] Lymphocytes/100 WBC (Bld) 44.0 % High 19-41 [facility] Comment on above: Performed By: #### L 100.0100 ####[facility] [address] [place], [address] MCH (RBC) [Entitic mass] 30.0 pg Normal 27.0-32.0 [facility] Comment on above: Performed By: #### L 100.0100 ####[facility] [address] [place], [address] MCHC (RBC) [Mass/Vol] 32.5 g/dL Normal 32-36 [facility] Comment on above: Performed By: #### L 100.0100 ####[facility] [address] [place], [address] MCV (RBC) [Entitic vol] 92.4 fL Normal 81-[address] [facility] Comment on above: Performed By: #### L 100.0100 ####[facility] [address] [place], [address] Monocytes/100 WBC (Bld) 13.0 % High 0-[address] [facility] Comment on above: Performed By: #### L 100.0100 ####[facility] [address] [place], [address] Neutrophils/100 WBC (Bld) 38.0 % Low 47-70 [facility] Comment on above: Performed By: #### L 100.0100 ####[facility] [address] [place], [address] Nucleated RBC (Bld) [#/Vol] 0 10*3/uL Normal 0-5 [facility] Comment on above: Performed By: #### L 100.0100 ####[facility] [address] [place], [address] Platelet mean volume (Bld) [Entitic vol] 11.0 fL Normal 6.2-12.0 [facility] Comment on above: Performed By: #### L 100.0100 ####[facility] [address] [place], [address] Platelets (Bld) [#/Vol] 151 10*3/uL Normal 150-450 [facility] Comment on above: Performed By: #### L 100.0100 ####[facility] [address] [place], [address] RBC (Bld) [#/Vol] 3.30 10*6/uL Low 4.2-5.4 [facility] Comment on above: Performed By: #### L 100.0100 ####[facility] [address] [place], [address] RDW SD 45.9 fl High 35.1-43.9 [facility] Comment on above: Performed By: #### L 100.0100 ####[facility] [address] [place], [address] WBC (Bld) [#/Vol] 3.4 10*3/uL Low 4.4-11.0 [facility] Comment on above: Performed By: #### L 100.0100 ####[facility] [address] [place], [address] Eosinophil percentageOrdered By: Camacho Aguilar on 07-04-2025 Eosinophils/100 WBC (Bld) 4.4 % 0-5 [facility] Erythrocyte distribution wid th ratioOrdered By: Camacho Aguilar on 07-04-2025 Erythrocyte distribution width (RBC) [Ratio] 13.4 % 11.6-14.6 [facility] Erythrocyte distribution wid th standard deviationOrdered By: Camacho Aguilar on 07-04-2025 Erythrocyte distribution width (RBC) [Ratio] 45.9 fl High 35.1-43.9 [facility] Hematocrit Auto (Bld) [Volum e fraction]Ordered By: Camacho Aguilar on 07-04-2025 Hematocrit (Bld) [Volume fraction] 30.5 % Low 37-47 [facility] Hemoglobin measurementOrdere d By: Camacho Aguilar on 07-04-2025 Hemoglobin (Bld) [Mass/Vol] 9.9 g/dL Low 12.0-15.0 [facility] Immature granulocytes/100 WB C Auto (Bld)Ordered By: Camacho Aguilar on 07-04-2025 Immature granulocytes/100 WBC (Bld) 0.300 % 0.0-0.9 [facility] MCV (mean corpuscular volume ) determinationOrdered By: Camacho Aguilar on 07-04-2025 MCV (RBC) [Entitic vol] 92.4 fL 81-[address] [facility] Mean corpuscular hemoglobin (MCH) determinationOrdered By: Camacho Aguilar on 07-04-2025 MCH (RBC) [Entitic mass] 30.0 pg 27.0-32.0 [facility] Monocyte percentageOrdered B y: Camacho Aguilar on 07-04-2025 Monocytes/100 WBC (Bld) 13.0 % High 0-[address] [facility] Neutrophil percentageOrdered By: Camacho Aguilar on 07-04-2025 Neutrophils/100 WBC (Bld) 38.0 % Low 47-70 [facility] Platelet countOrdered By: Tanya Aguilar on 07-04-2025 Platelets (Bld) [#/Vol] 151 10*3/uL 150-450 [facility] RBC Auto (Bld) [#/Vol]Ordere d By: Camacho Aguilar on 07-04-2025 RBC (Bld) [#/Vol] 3.30 10*6/uL Low 4.2-5.4 [facility] White blood cell (WBC) count Ordered By: Camacho Aguilar on 07-04-2025 WBC (Bld) [#/Vol] 3.4 10*3/uL Low 4.4-11.0 [facility] Anion gap in Serum or Plasma Ordered By: Camacho Aguilar on 07-03-2025 Anion gap [Moles/Vol] 7 mmol/L - [facility] BUN/creatinine ratioOrdered By: Camacho Aguilar on 07-03-2025 Urea nitrogen/Creatinine [Mass ratio] 10.9 mg/mg - [facility] Basic Metabolic Profile (BMP )on 07-03-2025 BUN/CRE 10.9 RATIO Normal - [facility] Comment on above: Performed By: #### L 100.0100, L500.2500 ####[facility] [address] [place], [address] Calcium [Mass/Vol] 8.2 mg/dL Normal 7.6-11.0 [facility] Comment on above: Performed By: #### L 100.0100, L500.2500 ####[facility] [address] [place], [address] Chloride [Moles/Vol] 106 mmol/L Normal 98-108 [facility] Comment on above: Performed By: #### L 100.0100, L500.2500 ####[facility] [address] [place], [address] CO2 [Moles/Vol] 25.8 mmol/L Normal 21.0-32.0 [facility] Comment on above: Performed By: #### L 100.0100, L500.2500 ####[facility] [address] [place], [address] Creatinine [Mass/Vol] 0.91 mg/dL Normal 0.70-1.20 [facility] Comment on above: Performed By: #### L 100.0100, L500.2500 ####[facility] [address] [place], [address] ECRCL 47.46 ml/min Low 50-250 [facility] Comment on above: Performed By: #### L 100.0100, L500.2500 ####[facility] [address] [place], [address] GAP 7 Normal 5-15 [facility] Comment on above: Performed By: #### L 100.0100, L500.2500 ####[facility] [address] [place], [address] GFR/1.73 sq M.predicted among non-blacks MDRD (S/P/Bld) [Vol rate/Area] 67 mL/min/{1.73_m2} Normal >60 [facility] Comment on above: Result Comment: mL/m in/1.73m2 CKD-EPI Creatinine Equation (2020) Performed By: #### L 100.0100, L500.2500 ####[facility] [address] [place], [address] Glucose [Mass/Vol] 86 mg/dL Normal 70-99 [facility] Comment on above: Performed By: #### L 100.0100, L500.2500 ####[facility] [address] [place], [address] Potassium [Moles/Vol] 3.7 mmol/L Normal 3.3-5.1 [facility] Comment on above: Performed By: #### L 100.0100, L500.2500 ####[facility] [address] [place], [address] Sodium [Moles/Vol] 139 mmol/L Normal 133-145 [facility] Comment on above: Performed By: #### L 100.0100, L500.2500 ####[facility] [address] [place], [address] Urea nitrogen [Mass/Vol] 10 mg/dL Normal 4-19 [facility] Comment on above: Performed By: #### L 100.0100, L500.2500 ####[facility] [address] [place], [address] CBC W/Diff, Automatedon 06-22 Absolute Lymph 1.42 X10 3/uL Normal 0.83-4.51 [facility] Comment on above: Performed By: #### L 100.0100, L500.2500 ####[facility] [address] [place], [address] Absolute Neut 1.3 X10 3/uL Low 2.0-7.7 [facility] Comment on above: Performed By: #### L 100.0100, L500.2500 ####[facility] [address] [place], [address] Basophils/100 WBC (Bld) 0.3 % Normal 0-[address] [facility] Comment on above: Performed By: #### L 100.0100, L500.2500 ####[facility] [address] [place], [address] Eosinophils/100 WBC (Bld) 3.4 % Normal 0-5 [facility] Comment on above: Performed By: #### L 100.0100, L500.2500 ####[facility] [address] [place], [address] Erythrocyte distribution width (RBC) [Ratio] 13.4 % Normal 11.6-14.6 [facility] Comment on above: Performed By: #### L 100.0100, L500.2500 ####[facility] [address] [place], [address] Hematocrit (Bld) [Volume fraction] 28.7 % Low 37-47 [facility] Comment on above: Performed By: #### L 100.0100, L500.2500 ####[facility] [address] [place], [address] Hemoglobin (Bld) [Mass/Vol] 9.3 g/dL Low 12.0-15.0 [facility] Comment on above: Performed By: #### L 100.0100, L500.2500 ####[facility] [address] [place], [address] IG% 0.000 Normal 0.0-0.9 [facility] Comment on above: Result Comment: IG% - Immature Granulocytes (promyelocytes, myelocytes andmetamyelocytes) > 1% indicates that a LEFT SHIFT is Present. Performed By: #### L 100.0100, L500.2500 ####[facility] [address] [place], [address] Lymphocytes/100 WBC (Bld) 43.3 % High 19-41 [facility] Comment on above: Performed By: #### L 100.0100, L500.2500 ####[facility] [address] [place], [address] MCH (RBC) [Entitic mass] 30.1 pg Normal 27.0-32.0 [facility] Comment on above: Performed By: #### L 100.0100, L500.2500 ####[facility] [address] [place], [address] MCHC (RBC) [Mass/Vol] 32.4 g/dL Normal 32-36 [facility] Comment on above: Performed By: #### L 100.0100, L500.2500 ####[facility] [address] [place], [address] MCV (RBC) [Entitic vol] 92.9 fL Normal 81-99 [facility] Comment on above: Performed By: #### L 100.0100, L500.2500 ####[facility] [address] [place], [address] Monocytes/100 WBC (Bld) 13.1 % High 0-10 [facility] Comment on above: Performed By: #### L 100.0100, L500.2500 ####[facility] [address] [place], [address] Neutrophils/100 WBC (Bld) 39.9 % Low 47-70 [facility] Comment on above: Performed By: #### L 100.0100, L500.2500 ####[facility] [address] [place], [address] Nucleated RBC (Bld) [#/Vol] 0 10*3/uL Normal 0-5 [facility] Comment on above: Performed By: #### L 100.0100, L500.2500 ####[facility] [address] [place], [address] Platelet mean volume (Bld) [Entitic vol] 11.1 fL Normal 6.2-12.0 [facility] Comment on above: Performed By: #### L 100.0100, L500.2500 ####[facility] [address] [place], [address] Platelets (Bld) [#/Vol] 155 10*3/uL Normal 150-450 [facility] Comment on above: Performed By: #### L 100.0100, L500.2500 ####[facility] [address] [place], [address] RBC (Bld) [#/Vol] 3.09 10*6/uL Low 4.2-5.4 [facility] Comment on above: Performed By: #### L 100.0100, L500.2500 ####[facility] [address] [place], [address] RDW SD 45.5 fl High 35.1-43.9 [facility] Comment on above: Performed By: #### L 100.0100, L500.2500 ####[facility] [address] [place], [address] WBC (Bld) [#/Vol] 3.3 10*3/uL Low 4.4-11.0 [facility] Comment on above: Performed By: #### L 100.0100, L500.2500 ####[facility] [address] [place], [address] Carbon dioxide, total [Moles /volume] in Central venous bloodOrdered By: Camacho Aguilar on 07-03-2025 CO2 [Moles/Vol] 25.8 mmol/L 21.0-32.0 [facility] Chloride assayOrdered By: Tanya Aguilar on 07-03-2025 Chloride [Moles/Vol] 106 mmol/L 98-108 [facility] Glomerular filtration rate ( GFR) estimation/1.73 sq m using serum, plasma, or whole bOrdered By: Camacho Aguilar on 07-03-2025 GFR/1.73 sq M.predicted among non-blacks MDRD (S/P/Bld) [Vol rate/Area] 67 mL/min/{1.73_m2} >60 [facility] Potassium measurement (mass/ volume)Ordered By: Camacho Aguilar on 07-03-2025 Potassium (Unsp spec) [Mass/Vol] 3.7 mmol/L 3.3-5.1 [facility] Serum creatinine measurement (mass/volume)Ordered By: Camacho Aguilar on 07-03-2025 Creatinine [Mass/Vol] 0.91 mg/dL 0.70-1.20 [facility] Serum glucose measurement (m ass/volume)Ordered By: Camacho Aguilar on 07-03-2025 Glucose [Mass/Vol] 86 mg/dL 70-99 [facility] Serum or plasma calcium loco urement (mass/volume)Ordered By: Camacho Aguilar on 07-03-2025 Calcium [Mass/Vol] 8.2 mg/dL 7.6-11.0 [facility] Serum or plasma urea nitroge n measurement (mass/volume)Ordered By: Camacho Aguilar on 07-03-2025 Urea nitrogen [Mass/Vol] 10 mg/dL 4-19 [facility] Sodium levelOrdered By: Juan Aguilar on 07-03-2025 Sodium [Moles/Vol] 139 mmol/L 133-145 [facility] Electrocardiogram reportOrde red By: Danish Tavarez on 07-02-2025 EKG study [facility] Work Phone: 12 Lead EKGon 07-01-2025 12 Lead EKG Normal [facility] Absolute lymphocyte countOrd ered By: Bossman Sanders on 07-01-2025 Lymphocytes Auto (Unsp spec) [#/Vol] 1.40 10*3/uL 0.83-4.51 [facility] Anion gap in Serum or Plasma Ordered By: Ivanaus Marilyn on 07-01-2025 Anion gap [Moles/Vol] 8 mmol/L 5-15 [facility] Automated lymphocyte count a s percentage of total leukocytesOrdered By: Ivanaus Marilyn on 07-01-2025 Lymphocytes/100 WBC Auto (Unsp spec) 34.9 % 19- [facility] BUN/creatinine ratioOrdered By: Bossman Barahonako on 07-01-2025 Urea nitrogen/Creatinine [Mass ratio] 13.2 mg/mg 09-10 [facility] Basic Metabolic Profile (BMP )on 07-01-2025 BUN/CRE 13.2 RATIO Normal 09-10 [facility] Comment on above: Performed By: #### L 500.2500, L501.4021, L100.0100, L300.8000, L503.7505 ####[facility] [address] [place], [address] Calcium [Mass/Vol] 8.1 mg/dL Normal 7.6-11.0 [facility] Comment on above: Performed By: #### L 500.2500, L501.4021, L100.0100, L300.8000, L503.7505 ####[facility] [address] [place], [address] Chloride [Moles/Vol] 108 mmol/L Normal 98-108 [facility] Comment on above: Performed By: #### L 500.2500, L501.4021, L100.0100, L300.8000, L503.7505 ####[facility] [address] [place], [address] CO2 [Moles/Vol] 24.6 mmol/L Normal 21.0-32.0 [facility] Comment on above: Performed By: #### L 500.2500, L501.4021, L100.0100, L300.8000, L503.7505 ####[facility] [address] [place], [address] Creatinine [Mass/Vol] 0.90 mg/dL Normal 0.70-1.20 [facility] Comment on above: Performed By: #### L 500.2500, L501.4021, L100.0100, L300.8000, L503.7505 ####[facility] [address] [place], [address] ECRCL 50.57 ml/min Normal 50-250 [facility] Comment on above: Performed By: #### L 500.2500, L501.4021, L100.0100, L300.8000, L503.7505 ####[facility] [address] [place], [address] GAP 8 Normal 5-15 [facility] Comment on above: Performed By: #### L 500.2500, L501.4021, L100.0100, L300.8000, L503.7505 ####[facility] [address] [place], [address] GFR/1.73 sq M.predicted among non-blacks MDRD (S/P/Bld) [Vol rate/Area] 68 mL/min/{1.73_m2} Normal >60 [facility] Comment on above: Result Comment: mL/m in/1.73m2 CKD-EPI Creatinine Equation (2020) Performed By: #### L 500.2500, L501.4021, L100.0100, L300.8000, L503.7505 ####[facility] [address] [place], [address] Glucose [Mass/Vol] 100 mg/dL High 70-99 [facility] Comment on above: Performed By: #### L 500.2500, L501.4021, L100.0100, L300.8000, L503.7505 ####[facility] [address] [place], [address] Potassium [Moles/Vol] 3.6 mmol/L Normal 3.3-5.1 [facility] Comment on above: Performed By: #### L 500.2500, L501.4021, L100.0100, L300.8000, L503.7505 ####[facility] [address] [place], [address] Sodium [Moles/Vol] 140 mmol/L Normal 133-145 [facility] Comment on above: Performed By: #### L 500.2500, L501.4021, L100.0100, L300.8000, L503.7505 ####[facility] [address] [place], [address] Urea nitrogen [Mass/Vol] 12 mg/dL Normal 4-19 [facility] Comment on above: Performed By: #### L 500.2500, L501.4021, L100.0100, L300.8000, L503.7505 ####[facility] [address] [place], [address] Basophil percentageOrdered B y: Remus Ungur on 07-01-2024 Basophils/100 WBC (Bld) 0.5 % 0-[address] [facility] CBC W/Diff, Automatedon 06-22-2024 Absolute Lymph 1.40 X10 3/uL Normal 0.83-4.51 [facility] Comment on above: Performed By: #### L 500.2500, L501.4021, L100.0100, L300.8000, L503.7505 ####[facility] [address] [place], [address] Absolute Neut 2.0 X10 3/uL Normal 2.0-7.7 [facility] Comment on above: Performed By: #### L 500.2500, L501.4021, L100.0100, L300.8000, L503.7505 ####[facility] [address] [place], [address] Basophils/100 WBC (Bld) 0.5 % Normal 0-[address] [facility] Comment on above: Performed By: #### L 500.2500, L501.4021, L100.0100, L300.8000, L503.7505 ####[facility] [address] [place], [address] Eosinophils/100 WBC (Bld) 2.0 % Normal 0-5 [facility] Comment on above: Performed By: #### L 500.2500, L501.4021, L100.0100, L300.8000, L503.7505 ####[facility] [address] [place], [address] Erythrocyte distribution width (RBC) [Ratio] 13.2 % Normal 11.6-14.6 [facility] Comment on above: Performed By: #### L 500.2500, L501.4021, L100.0100, L300.8000, L503.7505 ####[facility] [address] [place], [address] Hematocrit (Bld) [Volume fraction] 31.8 % Low 37-47 [facility] Comment on above: Performed By: #### L 500.2500, L501.4021, L100.0100, L300.8000, L503.7505 ####[facility] [address] [place], [address] Hemoglobin (Bld) [Mass/Vol] 10.3 g/dL Low 12.0-15.0 [facility] Comment on above: Performed By: #### L 500.2500, L501.4021, L100.0100, L300.8000, L503.7505 ####[facility] [address] [place], [address] IG% 0.200 Normal 0.0-0.9 [facility] Comment on above: Result Comment: IG% - Immature Granulocytes (promyelocytes, myelocytes andmetamyelocytes) > 1% indicates that a LEFT SHIFT is Present. Performed By: #### L 500.2500, L501.4021, L100.0100, L300.8000, L503.7505 ####[facility] [address] [place], [address] Lymphocytes/100 WBC (Bld) 34.9 % Normal 19-41 [facility] Comment on above: Performed By: #### L 500.2500, L501.4021, L100.0100, L300.8000, L503.7505 ####[facility] [address] [place], [address] MCH (RBC) [Entitic mass] 29.8 pg Normal 27.0-32.0 [facility] Comment on above: Performed By: #### L 500.2500, L501.4021, L100.0100, L300.8000, L503.7505 ####[facility] [address] [place], [address] MCHC (RBC) [Mass/Vol] 32.4 g/dL Normal 32-36 [facility] Comment on above: Performed By: #### L 500.2500, L501.4021, L100.0100, L300.8000, L503.7505 ####[facility] [address] [place], [address] MCV (RBC) [Entitic vol] 91.9 fL Normal 81-99 [facility] Comment on above: Performed By: #### L 500.2500, L501.4021, L100.0100, L300.8000, L503.7505 ####[facility] [address] [place], [address] Monocytes/100 WBC (Bld) 13.2 % High 0-10 [facility] Comment on above: Performed By: #### L 500.2500, L501.4021, L100.0100, L300.8000, L503.7505 ####[facility] [address] [place], [address] Neutrophils/100 WBC (Bld) 49.2 % Normal 47-70 [facility] Comment on above: Performed By: #### L 500.2500, L501.4021, L100.0100, L300.8000, L503.7505 ####[facility] [address] [place], [address] Nucleated RBC (Bld) [#/Vol] 0 10*3/uL Normal 0-5 [facility] Comment on above: Performed By: #### L 500.2500, L501.4021, L100.0100, L300.8000, L503.7505 ####[facility] [address] [place], [address] Platelet mean volume (Bld) [Entitic vol] 10.6 fL Normal 6.2-12.0 [facility] Comment on above: Performed By: #### L 500.2500, L501.4021, L100.0100, L300.8000, L503.7505 ####[facility] [address] [place], [address] Platelets (Bld) [#/Vol] 192 10*3/uL Normal 150-450 [facility] Comment on above: Performed By: #### L 500.2500, L501.4021, L100.0100, L300.8000, L503.7505 ####[facility] [address] [place], [address] RBC (Bld) [#/Vol] 3.46 10*6/uL Low 4.2-5.4 [facility] Comment on above: Performed By: #### L 500.2500, L501.4021, L100.0100, L300.8000, L503.7505 ####[facility] [address] [place], [address] RDW SD 44.8 fl High 35.1-43.9 [facility] Comment on above: Performed By: #### L 500.2500, L501.4021, L100.0100, L300.8000, L503.7505 ####[facility] [address] [place], [address] WBC (Bld) [#/Vol] 4.0 10*3/uL Low 4.4-11.0 [facility] Comment on above: Performed By: #### L 500.2500, L501.4021, L100.0100, L300.8000, L503.7505 ####[facility] [address] [place], [place], [address] CTA Chest W/WO Contraston CTA Chest W/WO Contrast Normal [facility] Carbon dioxide, total [Moles /volume] in Central venous bloodOrdered By: Bossman Sanders on 07-01-2025 CO2 [Moles/Vol] 24.6 mmol/L 21.0-32.0 [facility] Chest 1 View (Portable)on Chest 1 View (Portable) Normal [facility] Chloride assayOrdered By: Sabino Sanders on 07-01-2025 Chloride [Moles/Vol] 108 mmol/L 98-108 [facility] D-Dimer Quantitative (DVT/PE )on 07-01-2025 D-DIMER QUANT 1.39 FEU/ug/m Invalid Interpretation Code 0.27-0.49 [facility] Comment on above: Result Comment: CRIT ICAL VALUE CALLED TO HORR07/01/25 1732 Bruna Ambrocio.RESULTS READ BACK BY SAME.D-Dimer ELEVATED (>0.49): Additional studies and clinicalassessments are indicated to conclude diagnosis of:Deep Vein Thrombosis (DVT) or Pulmonary Embolism (PE) Performed By: #### L 500.2500, L501.4021, L100.0100, L300.8000, L503.7505 ####[facility] [address] [place], [place], [id number] Emergency Department Summary on 07-01-2025 Emergency Department Summary Normal [facility] Eosinophil percentageOrdered By: Bossman Sanders on 07-01-2025 Eosinophils/100 WBC (Bld) 2.0 % 0-5 [facility] Erythrocyte distribution wid th ratioOrdered By: Ivanaus Marilyn on 07-01-2025 Erythrocyte distribution width (RBC) [Ratio] 13.2 % 11.6-14.6 [facility] Erythrocyte distribution wid th standard deviationOrdered By: Bossman Sanders on 07-01-2025 Erythrocyte distribution width (RBC) [Ratio] 44.8 fl High 35.1-43.9 [facility] Glomerular filtration rate ( GFR) estimation/1.73 sq m using serum, plasma, or whole bOrdered By: Bossman Sanders on 07-01-2025 GFR/1.73 sq M.predicted among non-blacks MDRD (S/P/Bld) [Vol rate/Area] 68 mL/min/{1.73_m2} >60 [facility] H AND P Exam - Hospitaliston 07-01-2025 H&P Exam - Hospitalist Normal [facility] Hematocrit Auto (Bld) [Volum e fraction]Ordered By: Bossman Sanders on 07-01-2025 Hematocrit (Bld) [Volume fraction] 31.8 % Low 37-47 [facility] Hemoglobin measurementOrdere d By: Bossman Sanders on 07-01-2025 Hemoglobin (Bld) [Mass/Vol] 10.3 g/dL Low 12.0-15.0 [facility] Immature granulocytes/100 WB C Auto (Bld)Ordered By: Bossman Sanders on 07-01-2025 Immature granulocytes/100 WBC (Bld) 0.200 % 0.0-0.9 [facility] L501.4021on 07-01-2025 Trop T High Sen 11 ng/L Normal <=14 [facility] Comment on above: Performed By: #### L 500.2500, L501.4021, L100.0100, L300.8000, L503.7505 ####[facility] [address] [place], [address] MCV (mean corpuscular volume ) determinationOrdered By: Bossman Sanders on 07-01-2025 MCV (RBC) [Entitic vol] 91.9 fL 81-[address] [facility] Mean corpuscular hemoglobin (MCH) determinationOrdered By: Bossman Sanders on 07-01-2025 MCH (RBC) [Entitic mass] 29.8 pg 27.0-32.0 [facility] Monocyte percentageOrdered B y: Ivana Marilyn on 07-01-2025 Monocytes/100 WBC (Bld) 13.2 % High 0-[address] [facility] Natriuretic peptide.B prohor guillermina N-Terminal [Mass/volume] in Serum or PlasmaOrdered By: Bossman Sanders on 07-01-2025 Natriuretic peptide.B prohormone N-Terminal [Mass/Vol] 948 pg/mL High <900 [facility] Neutrophil percentageOrdered By: Bossman Sanders on 07-01-2025 Neutrophils/100 WBC (Bld) 49.2 % 47-70 [facility] Platelet countOrdered By: Sabino Sanders on 07-01-2025 Platelets (Bld) [#/Vol] 192 10*3/uL 150-450 [facility] Potassium measurement (mass/ volume)Ordered By: Bossman Sanders on 07-01-2025 Potassium (Unsp spec) [Mass/Vol] 3.6 mmol/L 3.3-5.1 [facility] Pro- Brain NATRIURETIC PEPTI Ingrid 07-01-2025 Natriuretic peptide B (Bld) [Mass/Vol] 948 pg/mL High <=900 [facility] Comment on above: Result Comment: Hear t Failure Unlikely: < 300 pg/mLHeart Failure Likely< 50 Years: > 450 pg/mL50-75 Years: > 900 pg/mL>75 Years: > 1800 pg/mL Performed By: #### L 500.2500, L501.4021, L100.0100, L300.8000, L503.7505 ####[facility] [address] [place], [address] RBC Auto (Bld) [#/Vol]Ordere d By: Bossman Sanders on 07-01-2025 RBC (Bld) [#/Vol] 3.46 10*6/uL Low 4.2-5.4 [facility] Serum creatinine measurement (mass/volume)Ordered By: Bossman Sanders on 07-01-2025 Creatinine [Mass/Vol] 0.90 mg/dL 0.70-1.20 [facility] Serum glucose measurement (m ass/volume)Ordered By: Bossman Sanders on 07-01-2025 Glucose [Mass/Vol] 100 mg/dL High 70-99 [facility] Serum or plasma calcium loco urement (mass/volume)Ordered By: Remus Sanders on 07-01-2025 Calcium [Mass/Vol] 8.1 mg/dL 7.6-11.0 [facility] Serum or plasma urea nitroge n measurement (mass/volume)Ordered By: Bossman Sanders on 07-01-2025 Urea nitrogen [Mass/Vol] 12 mg/dL 4-19 [facility] Sodium levelOrdered By: Conrad Sanders on 07-01-2025 Sodium [Moles/Vol] 140 mmol/L 133-145 [facility] Troponin T HS 2 HRon 025 Trop T High Sen 12 ng/L Normal <=14 [facility] Comment on above: Performed By: #### L 499.0042 ####[facility] [address] [place], [place], [address] Troponin T HS 4 HRon 025 Trop T High Sen 15 ng/L High <=14 [facility] Comment on above: Performed By: #### L 499.0043 ####[facility] [address] [facility] [place], [place], [address] Troponin T.cardiac [Mass/vol ume] in Serum or Plasma by High sensitivity methodOrdered By: Bossman Sanders on 07-01-2025 Troponin T.cardiac High sensitivity method [Mass/Vol] 15 ng/L High <14 [facility] Troponin T.cardiac High sensitivity method [Mass/Vol] 12 ng/L <14 [facility] Troponin T.cardiac High sensitivity method [Mass/Vol] 11 ng/L <14 [facility] White blood cell (WBC) count Ordered By: Bossman Sanders on 07-01-2025 WBC (Bld) [#/Vol] 4.0 10*3/uL Low 4.4-11.0 [facility] CNOVon 06-29-2025 CNOV Office Visit (NRMDN) MANSI CARO ([id number]) 1955 F Date Time Provider Department 06/29/25 11:00 AM CECILIA OWENS During your visit today, we recorded the following information about you: Weight Height 55.9 kg 1.727 m Cecilia Owens APRN.[employer] MANAGER 06/29/2025 4:44 PM Signed CNR-[facility] - FOLLOW UP EVALUATION [facility] Neurologist: Leyla Murphy MD [facility] RICARDO: Marci Lopez DO [address] [place] [address] Dear Marci Lopez DO: I had the pleasure of seeing Ms. Caro for follow-up today. As you know she is a 70 year old right-handed female with a history of left hand tremor since 2021. She is seen with her . Subjective Previous Plan- 02/27/2025 Visit: - Start taking Ingrezza 40 mg daily for mouth movements; prescription sent to [facility]. Once this is controlled we [...] today. She was in the hospital in [place] for pneumonia in February. Looking into long [...] for nausea/vomiting. albuterol sulfate 90 mcg/actuation aebs oxyCODONE-acetaminophe n (PERCOCET) 5-325 mg tablet 1 TABLET ORAL [...] needed. traZODone (more content not included)... Normal [facility] 06-29-2025 [facility] Tele[facility] MANSI CARO ([id number]) 1955 F Date Time Provider Department 06/29/25 [facility] During your visit today, we recorded the following information about you: Lizet Alfonso, TANIA 06/29/2025 3:13 PM Signed Did the patient [...] prepare you and your provider for your visit." 2. 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 COVID [facility] intake team is not [...] that you may need to travel to [place] multiple times to get all testing done and see the consulted specialist(s). Please arrive 15 minutes early to your appointment. If you are more than 10 minutes late to your appointment you may be asked to reschedule. One week prior to your appointment you should pre-check in via [employer] to complete questionnaires that will provide valuable information to your provider to aid in your visit. You may receive a telephone call to remind you if we see they have not been completed in advance of your visit. If you have outside testing you would like to be entered into your chart, please fax it to [phone]. Records brought in same day of visit may not be reviewed until after the visit due to time constraints." *FYI Current [facility] states are [place], [place], [place], and [place] as of 03/2025. This means patients can [...] MARIN Date Reviewed: 06/29/2025 Reviewed by: Lizet Alfonso RN - Fully Assessed Reason for Visit: Intake [[id number]] Cmt: [facility] pre-visit phone call Prescriptions as of 06/29/2025 [...] albuterol edmond (more content not included)... Normal [facility] 36on 06-16-2025 36 S: Patient's home health Katlyn called the [...] Protocols used: Abdominal Pain - ADULT-AH Normal [facility] Absolute lymphocyte countOrd ered By: Ganesh Kiran on 06-11-2025 Lymphocytes Auto (Unsp spec) [#/Vol] 0.89 10*3/uL 0.83-4.51 [facility] Anion gap in Serum or Plasma Ordered By: Ganesh Kiran on 06-11-2025 Anion gap [Moles/Vol] 8 mmol/L 5- [facility] Automated lymphocyte count a s percentage of total leukocytesOrdered By: Ganesh Kiran on 06-11-2025 Lymphocytes/100 WBC Auto (Unsp spec) 23.2 % - [facility] BUN/creatinine ratioOrdered By: Ganesh Kiran on 06-11-2025 Urea nitrogen/Creatinine [Mass ratio] 13.8 mg/mg - [facility] Basic Metabolic Profile (BMP )on 06-11-2025 BUN/CRE 13.8 RATIO Normal - [facility] Comment on above: Performed By: #### L 500.2500, L100.0100 ####[facility] [address] [place], [address] Calcium [Mass/Vol] 8.5 mg/dL Normal 7.6-11.0 [facility] Comment on above: Performed By: #### L 500.2500, L100.0100 ####[facility] [address] [place], [address] Chloride [Moles/Vol] 106 mmol/L Normal 98-108 [facility] Comment on above: Performed By: #### L 500.2500, L100.0100 ####[facility] [address] [place], [address] CO2 [Moles/Vol] 25.8 mmol/L Normal 21.0-32.0 [facility] Comment on above: Performed By: #### L 500.2500, L100.0100 ####[facility] [address] [place], [address] Creatinine [Mass/Vol] 0.97 mg/dL Normal 0.70-1.20 [facility] Comment on above: Performed By: #### L 500.2500, L100.0100 ####[facility] [address] [place], [address] ECRCL 48.17 ml/min Low 50-250 [facility] Comment on above: Performed By: #### L 500.2500, L100.0100 ####[facility] [address] [place], [address] GAP 8 Normal 5-15 [facility] Comment on above: Performed By: #### L 500.2500, L100.0100 ####[facility] [address] [place], [address] GFR/1.73 sq M.predicted among non-blacks MDRD (S/P/Bld) [Vol rate/Area] 62 mL/min/{1.73_m2} Normal >60 [facility] Comment on above: Result Comment: mL/m in/1.73m2 CKD-EPI Creatinine Equation (2020) Performed By: #### L 500.2500, L100.0100 ####[facility] [address] [place], [address] Glucose [Mass/Vol] 126 mg/dL High 70-99 [facility] Comment on above: Performed By: #### L 500.2500, L100.0100 ####[facility] [address] [place], [address] Potassium [Moles/Vol] 4.0 mmol/L Normal 3.3-5.1 [facility] Comment on above: Performed By: #### L 500.2500, L100.0100 ####[facility] [address] [place], [address] Sodium [Moles/Vol] 140 mmol/L Normal 133-145 [facility] Comment on above: Performed By: #### L 500.2500, L100.0100 ####[facility] [address] [place], [address] Urea nitrogen [Mass/Vol] 13 mg/dL Normal 4-19 [facility] Comment on above: Performed By: #### L 500.2500, L100.0100 ####[facility] [address] [place], [address] Basophil percentageOrdered B y: Ganesh Magno on 06-11-2025 Basophils/100 WBC (Bld) 0.3 % 0-[address] [facility] CBC W/Diff, Automatedon 05-23 Absolute Lymph 0.89 X10 3/uL Normal 0.83-4.51 [facility] Comment on above: Performed By: #### L 500.2500, L100.0100 ####[facility] [address] [place], [address] Absolute Neut 2.3 X10 3/uL Normal 2.0-7.7 [facility] Comment on above: Performed By: #### L 500.2500, L100.0100 ####[facility] [address] [place], [address] Basophils/100 WBC (Bld) 0.3 % Normal 0-[address] [facility] Comment on above: Performed By: #### L 500.2500, L100.0100 ####[facility] [address] [place], [address] Eosinophils/100 WBC (Bld) 4.7 % Normal 0-5 [facility] Comment on above: Performed By: #### L 500.2500, L100.0100 ####[facility] [address] [place], [address] Erythrocyte distribution width (RBC) [Ratio] 13.6 % Normal 11.6-14.6 [facility] Comment on above: Performed By: #### L 500.2500, L100.0100 ####[facility] [address] [place], [address] Hematocrit (Bld) [Volume fraction] 31.4 % Low 37-47 [facility] Comment on above: Performed By: #### L 500.2500, L100.0100 ####[facility] [address] [place], [address] Hemoglobin (Bld) [Mass/Vol] 9.8 g/dL Low 12.0-15.0 [facility] Comment on above: Performed By: #### L 500.2500, L100.0100 ####[facility] [address] [place], [address] IG% 0.300 Normal 0.0-0.9 [facility] Comment on above: Result Comment: IG% - Immature Granulocytes (promyelocytes, myelocytes andmetamyelocytes) > 1% indicates that a LEFT SHIFT is Present. Performed By: #### L 500.2500, L100.0100 ####[facility] [address] [place], [address] Lymphocytes/100 WBC (Bld) 23.2 % Normal 19-41 [facility] Comment on above: Performed By: #### L 500.2500, L100.0100 ####[facility] [address] [place], [address] MCH (RBC) [Entitic mass] 30.1 pg Normal 27.0-32.0 [facility] Comment on above: Performed By: #### L 500.2500, L100.0100 ####[facility] [address] [place], [address] MCHC (RBC) [Mass/Vol] 31.2 g/dL Low 32-36 [facility] Comment on above: Performed By: #### L 500.2500, L100.0100 ####[facility] [address] [place], [address] MCV (RBC) [Entitic vol] 96.3 fL Normal 81-[address] [facility] Comment on above: Performed By: #### L 500.2500, L100.0100 ####[facility] [address] [place], [address] Monocytes/100 WBC (Bld) 11.5 % High 0-10 [facility] Comment on above: Performed By: #### L 500.2500, L100.0100 ####[facility] [address] [place], [address] Neutrophils/100 WBC (Bld) 60.0 % Normal 47-70 [facility] Comment on above: Performed By: #### L 500.2500, L100.0100 ####[facility] [address] [place], [address] Nucleated RBC (Bld) [#/Vol] 0 10*3/uL Normal 0-5 [facility] Comment on above: Performed By: #### L 500.2500, L100.0100 ####[facility] [address] [place], [address] Platelet mean volume (Bld) [Entitic vol] 10.1 fL Normal 6.2-12.0 [facility] Comment on above: Performed By: #### L 500.2500, L100.0100 ####[facility] [address] [place], [address] Platelets (Bld) [#/Vol] 186 10*3/uL Normal 150-450 [facility] Comment on above: Performed By: #### L 500.2500, L100.0100 ####[facility] [address] [place], [address] RBC (Bld) [#/Vol] 3.26 10*6/uL Low 4.2-5.4 [facility] Comment on above: Performed By: #### L 500.2500, L100.0100 ####[facility] [address] [place], [address] RDW SD 48.7 fl High 35.1-43.9 [facility] Comment on above: Performed By: #### L 500.2500, L100.0100 ####[facility] [address] [place], [address] WBC (Bld) [#/Vol] 3.8 10*3/uL Low 4.4-11.0 [facility] Comment on above: Performed By: #### L 500.2500, L100.0100 ####[facility] [address] [place], [address] Carbon dioxide, total [Moles /volume] in Central venous bloodOrdered By: Ganesh Kiran on 06-11-2025 CO2 [Moles/Vol] 25.8 mmol/L 21.0-32.0 [facility] Chloride assayOrdered By: Rcik Kiran on 06-11-2025 Chloride [Moles/Vol] 106 mmol/L 98-108 [facility] Discharge Instructionon 05-23 Discharge Instruction Normal [facility] Eosinophil percentageOrdered By: Ganesh Kiran on 06-11-2025 Eosinophils/100 WBC (Bld) 4.7 % 0-5 [facility] Erythrocyte distribution wid th ratioOrdered By: Ganesh Kiran on 06-11-2025 Erythrocyte distribution width (RBC) [Ratio] 13.6 % 11.6-14.6 [facility] Erythrocyte distribution wid th standard deviationOrdered By: Ganesh Kiran on 06-11-2025 Erythrocyte distribution width (RBC) [Ratio] 48.7 fl High 35.1-43.9 [facility] Glomerular filtration rate ( GFR) estimation/1.73 sq m using serum, plasma, or whole bOrdered By: Ganesh Kiran on 06-11-2025 GFR/1.73 sq M.predicted among non-blacks MDRD (S/P/Bld) [Vol rate/Area] 62 mL/min/{1.73_m2} >60 [facility] Hematocrit Auto (Bld) [Volum e fraction]Ordered By: Ganesh Kiran on 06-11-2025 Hematocrit (Bld) [Volume fraction] 31.4 % Low 37-47 [facility] Hemoglobin measurementOrdere d By: Ganesh Kiran on 06-11-2025 Hemoglobin (Bld) [Mass/Vol] 9.8 g/dL Low 12.0-15.0 [facility] Immature granulocytes/100 WB C Auto (Bld)Ordered By: Ganesh Kiran on 06-11-2025 Immature granulocytes/100 WBC (Bld) 0.300 % 0.0-0.9 [facility] MCV (mean corpuscular volume ) determinationOrdered By: Ganesh Kiran on 06-11-2025 MCV (RBC) [Entitic vol] 96.3 fL 81-[address] [facility] Mean corpuscular hemoglobin (MCH) determinationOrdered By: Ganesh Kiran on 06-11-2025 MCH (RBC) [Entitic mass] 30.1 pg 27.0-32.0 [facility] Monocyte percentageOrdered B y: Ganesh Kiran on 06-11-2025 Monocytes/100 WBC (Bld) 11.5 % High 0-[address] [facility] Neutrophil percentageOrdered By: Ganesh Kiran on 06-11-2025 Neutrophils/100 WBC (Bld) 60.0 % 47-70 [facility] Platelet countOrdered By: Rick Kiran on 06-11-2025 Platelets (Bld) [#/Vol] 186 10*3/uL 150-450 [facility] Potassium measurement (mass/ volume)Ordered By: Ganesh Kiran on 06-11-2025 Potassium (Unsp spec) [Mass/Vol] 4.0 mmol/L 3.3-5.1 [facility] RBC Auto (Bld) [#/Vol]Ordere d By: Ganesh Kiran on 06-11-2025 RBC (Bld) [#/Vol] 3.26 10*6/uL Low 4.2-5.4 [facility] Serum creatinine measurement (mass/volume)Ordered By: Ganesh Kiran on 06-11-2025 Creatinine [Mass/Vol] 0.97 mg/dL 0.70-1.20 [facility] Serum glucose measurement (m ass/volume)Ordered By: Ganesh Kiran on 06-11-2025 Glucose [Mass/Vol] 126 mg/dL High 70-99 [facility] Serum or plasma calcium loco urement (mass/volume)Ordered By: Ganesh Kiran on 06-11-2025 Calcium [Mass/Vol] 8.5 mg/dL 7.6-11.0 [facility] Serum or plasma urea nitroge n measurement (mass/volume)Ordered By: Ganesh Kiran on 06-11-2025 Urea nitrogen [Mass/Vol] 13 mg/dL 4-19 [facility] Sodium levelOrdered By: Pari Kiran on 06-11-2025 Sodium [Moles/Vol] 140 mmol/L 133-145 [facility] White blood cell (WBC) count Ordered By: Ganesh Kiran on 06-11-2025 WBC (Bld) [#/Vol] 3.8 10*3/uL Low 4.4-11.0 [facility] 36on 06-09-2025 36 Name of caller Mirlande Contact phone number: [phone] Relationship to Patient: spouse/SO Provider: Dr. Marci Lopez Practice: [facility] Chief Complaint/Reason for Call: The patient , Song, states his might be released from [facility] on 06-09-2025. Also, the covering doctor at the hospital states the patient might have psychiatrist issues with 8 other things wrong with her. The patient will be discharged to [facility] in [place]. Please call the patient at [phone] to advise Best time of day caller can be reached: Anytime Patient advised that office/PCP has 24-48 business hours to return their call: Yes Normal [facility] Basic Metabolic Profile (BMP )on 06-08-2025 BUN/CRE 13.6 RATIO Normal 10-20 [facility] Comment on above: Performed By: #### L 500.2500, L100.0100 ####[facility] [address] [place], [address] Calcium [Mass/Vol] 8.6 mg/dL Normal 7.6-11.0 [facility] Comment on above: Performed By: #### L 500.2500, L100.0100 ####[facility] [address] [place], [address] Chloride [Moles/Vol] 102 mmol/L Normal 98-108 [facility] Comment on above: Performed By: #### L 500.2500, L100.0100 ####[facility] [address] [place], [address] CO2 [Moles/Vol] 25.9 mmol/L Normal 21.0-32.0 [facility] Comment on above: Performed By: #### L 500.2500, L100.0100 ####[facility] [address] [place], [address] Creatinine [Mass/Vol] 0.98 mg/dL Normal 0.70-1.20 [facility] Comment on above: Performed By: #### L 500.2500, L100.0100 ####[facility] [address] [place], [address] ECRCL 47.68 ml/min Low 50-250 [facility] Comment on above: Performed By: #### L 500.2500, L100.0100 ####[facility] [address] [place], [address] GAP 9 Normal 5-15 [facility] Comment on above: Performed By: #### L 500.2500, L100.0100 ####[facility] [address] [place], [address] GFR/1.73 sq M.predicted among non-blacks MDRD (S/P/Bld) [Vol rate/Area] 61 mL/min/{1.73_m2} Normal >60 [facility] Comment on above: Result Comment: mL/m in/1.73m2 CKD-EPI Creatinine Equation (2020) Performed By: #### L 500.2500, L100.0100 ####[facility] [address] [place], [address] Glucose [Mass/Vol] 115 mg/dL High 70-99 [facility] Comment on above: Performed By: #### L 500.2500, L100.0100 ####[facility] [address] [place], [address] Potassium [Moles/Vol] 4.4 mmol/L Normal 3.3-5.1 [facility] Comment on above: Performed By: #### L 500.2500, L100.0100 ####[facility] [address] [place], [address] Sodium [Moles/Vol] 136 mmol/L Normal 133-145 [facility] Comment on above: Performed By: #### L 500.2500, L100.0100 ####[facility] [address] [place], [address] Urea nitrogen [Mass/Vol] 13 mg/dL Normal 4-19 [facility] Comment on above: Performed By: #### L 500.2500, L100.0100 ####[facility] [address] [place], [address] CBC W/Diff, Automatedon 05-22 Absolute Lymph 0.95 X10 3/uL Normal 0.83-4.51 [facility] Comment on above: Performed By: #### L 500.2500, L100.0100 ####[facility] [address] [place], [address] Absolute Neut 2.2 X10 3/uL Normal 2.0-7.7 [facility] Comment on above: Performed By: #### L 500.2500, L100.0100 ####[facility] [address] [place], [address] Basophils/100 WBC (Bld) 0.3 % Normal 0-[address] [facility] Comment on above: Performed By: #### L 500.2500, L100.0100 ####[facility] [address] [place], [address] Eosinophils/100 WBC (Bld) 0.0 % Normal 0-5 [facility] Comment on above: Performed By: #### L 500.2500, L100.0100 ####[facility] [address] [place], [address] Erythrocyte distribution width (RBC) [Ratio] 13.3 % Normal 11.6-14.6 [facility] Comment on above: Performed By: #### L 500.2500, L100.0100 ####[facility] [address] [place], [address] Hematocrit (Bld) [Volume fraction] 30.5 % Low 37-47 [facility] Comment on above: Performed By: #### L 500.2500, L100.0100 ####[facility] [address] [place], [address] Hemoglobin (Bld) [Mass/Vol] 10.0 g/dL Low 12.0-15.0 [facility] Comment on above: Performed By: #### L 500.2500, L100.0100 ####[facility] [address] [place], [address] IG% 0.300 Normal 0.0-0.9 [facility] Comment on above: Result Comment: IG% - Immature Granulocytes (promyelocytes, myelocytes andmetamyelocytes) > 1% indicates that a LEFT SHIFT is Present. Performed By: #### L 500.2500, L100.0100 ####[facility] [address] [place], [address] Lymphocytes/100 WBC (Bld) 26.4 % Normal 19-41 [facility] Comment on above: Performed By: #### L 500.2500, L100.0100 ####[facility] [address] [place], [address] MCH (RBC) [Entitic mass] 30.5 pg Normal 27.0-32.0 [facility] Comment on above: Performed By: #### L 500.2500, L100.0100 ####[facility] [address] [place], [address] MCHC (RBC) [Mass/Vol] 32.8 g/dL Normal 32-36 [facility] Comment on above: Performed By: #### L 500.2500, L100.0100 ####[facility] [address] [place], [address] MCV (RBC) [Entitic vol] 93.0 fL Normal 81-[address] [facility] Comment on above: Performed By: #### L 500.2500, L100.0100 ####[facility] [address] [place], [address] Monocytes/100 WBC (Bld) 11.9 % High 0-[address] [facility] Comment on above: Performed By: #### L 500.2500, L100.0100 ####[facility] [address] [place], [address] Neutrophils/100 WBC (Bld) 61.1 % Normal 47-70 [facility] Comment on above: Performed By: #### L 500.2500, L100.0100 ####[facility] [address] [place], [address] Nucleated RBC (Bld) [#/Vol] 0 10*3/uL Normal 0-5 [facility] Comment on above: Performed By: #### L 500.2500, L100.0100 ####[facility] [address] [place], [address] Platelet mean volume (Bld) [Entitic vol] 10.3 fL Normal 6.2-12.0 [facility] Comment on above: Performed By: #### L 500.2500, L100.0100 ####[facility] [address] [place], [address] Platelets (Bld) [#/Vol] 232 10*3/uL Normal 150-450 [facility] Comment on above: Performed By: #### L 500.2500, L100.0100 ####[facility] [address] [place], [address] RBC (Bld) [#/Vol] 3.28 10*6/uL Low 4.2-5.4 [facility] Comment on above: Performed By: #### L 500.2500, L100.0100 ####[facility] [address] [place], [address] RDW SD 45.3 fl High 35.1-43.9 [facility] Comment on above: Performed By: #### L 500.2500, L100.0100 ####[facility] [address] [place], [address] WBC (Bld) [#/Vol] 3.6 10*3/uL Low 4.4-11.0 [facility] Comment on above: Performed By: #### L 500.2500, L100.0100 ####[facility] [address] [place], [address] Celiac Disease Profileon ENDOMYSIAL IGA Negative Normal Negative [facility] Comment on above: Performed By: #### L 3410.2400 ####[facility] [address] [place], [place], [address] IMMUNOGLOB A QN 350 mg/dL Normal 64-422 [facility] Comment on above: Result Comment: Perf ormed at: [facility] [id number] Director: Bulmaro Nesbitt PhD, Phone: [phone] Performed By: #### L 3410.2400 ####[facility] [address] [place], [place], [address] tTG IGA <2 Normal 0-3 [facility] Comment on above: Result Comment: Nega tive 0 - 3 Weak Positive 4 - 10 Positive >10 Tissue Transglutaminase (tTG) has been identified as the endomysial antigen. Studies have demonstr- ated that endomysial IgA antibodies have over 99% specificity for gluten sensitive enteropathy. Performed By: #### L 3410.2400 ####[facility] [address] [place], [place], [address] Bedside Glucoseon 06-07-2025 FINGERSTICK GLU 101 mg/dL Normal 74-106 [facility] Comment on above: Result Comment: TORRES ANUENT OF PATIENT CARE PER NURSING PROTOCOL Performed By: #### L 501.080 ####[facility] [address] [place], [address] Culture, Blood (WB)on 2024 CUB Blood cultures x2, from two different sites No growth in 5 days. Normal [facility] Comment on above: Performed By: #### M 200.1000 ####[facility] [address] [place], [place], [address] EGD Reporton 06-07-2025 EGD Report Normal [facility] deOrdered By: Ganesh Kiran on 06-07-2025 Glucose [Mass/Vol] 101 mg/dL 74-106 [facility] MR/CON.PCM.GIon 06-07-2025 MR/CON.PCM.GI Normal [facility] MR/POSTOP.ANEon 06-07-2025 MR/POSTOP.ANE Normal [facility] MR/DKDXPSVL7oc 06-07-2025 MR/POSTOPAN2 Normal [facility] Discharge Instructionon 05-22 Discharge Instruction Normal [facility] Serum or plasma IgA measurem ent (mass/volume)Ordered By: Ben Johnson on 06-05-2025 IgA [Mass/Vol] 350 mg/dL 64-422 [facility] Serum tissue transglutaminas e (tTG) IgA antibody assay (units/volume)Ordered By: Ben Johnson on 06-05-2025 tTG IgA Qn (S) <2 U/mL 0-3 [facility] Bedside Glucoseon 06-04-2025 FINGERSTICK GLU 140 mg/dL High 74-106 [facility] Comment on above: Result Comment: TORRES FRANKLIN OF PATIENT CARE PER NURSING PROTOCOL Performed By: #### L 501.080 ####[facility] [address] [place], [address] CBC W/Diff, Automatedon 05-22 Absolute Lymph 1.59 X10 3/uL Normal 0.83-4.51 [facility] Comment on above: Performed By: #### L 100.0100 ####[facility] [address] [place], [address] Absolute Neut 4.1 X10 3/uL Normal 2.0-7.7 [facility] Comment on above: Performed By: #### L 100.0100 ####[facility] [address] [place], [address] Basophils/100 WBC (Bld) 0.5 % Normal 0-[address] [facility] Comment on above: Performed By: #### L 100.0100 ####[facility] [address] [place], [address] Eosinophils/100 WBC (Bld) 1.3 % Normal 0-5 [facility] Comment on above: Performed By: #### L 100.0100 ####[facility] [address] [place], [address] Erythrocyte distribution width (RBC) [Ratio] 13.6 % Normal 11.6-14.6 [facility] Comment on above: Performed By: #### L 100.0100 ####[facility] [address] [place], [address] Hematocrit (Bld) [Volume fraction] 31.4 % Low 37-47 [facility] Comment on above: Performed By: #### L 100.0100 ####[facility] [address] [place], [address] Hemoglobin (Bld) [Mass/Vol] 10.2 g/dL Low 12.0-15.0 [facility] Comment on above: Performed By: #### L 100.0100 ####[facility] [address] [place], [address] IG% 0.200 Normal 0.0-0.9 [facility] Comment on above: Result Comment: IG% - Immature Granulocytes (promyelocytes, myelocytes andmetamyelocytes) > 1% indicates that a LEFT SHIFT is Present. Performed By: #### L 100.0100 ####[facility] [address] [place], [address] Lymphocytes/100 WBC (Bld) 25.1 % Normal 19-41 [facility] Comment on above: Performed By: #### L 100.0100 ####[facility] [address] [place], [address] MCH (RBC) [Entitic mass] 30.9 pg Normal 27.0-32.0 [facility] Comment on above: Performed By: #### L 100.0100 ####[facility] [address] [place], [address] MCHC (RBC) [Mass/Vol] 32.5 g/dL Normal 32-36 [facility] Comment on above: Performed By: #### L 100.0100 ####[facility] [address] [place], [address] MCV (RBC) [Entitic vol] 95.2 fL Normal 81-99 [facility] Comment on above: Performed By: #### L 100.0100 ####[facility] [address] [place], [address] Monocytes/100 WBC (Bld) 8.2 % Normal 0-10 [facility] [facility] Comment on above: Performed By: #### L 100.0100 ####[facility] [address] [place], [address] Neutrophils/100 WBC (Bld) 64.7 % Normal 47-70 [facility] Comment on above: Performed By: #### L 100.0100 ####[facility] [address] [place], [address] Nucleated RBC (Bld) [#/Vol] 0 10*3/uL Normal 0-5 [facility] Comment on above: Performed By: #### L 100.0100 ####[facility] [address] [place], [address] Platelet mean volume (Bld) [Entitic vol] 10.2 fL Normal 6.2-12.0 [facility] Comment on above: Performed By: #### L 100.0100 ####[facility] [address] [place], [address] Platelets (Bld) [#/Vol] 232 10*3/uL Normal 150-450 [facility] Comment on above: Performed By: #### L 100.0100 ####[facility] [address] [place], [address] RBC (Bld) [#/Vol] 3.30 10*6/uL Low 4.2-5.4 [facility] Comment on above: Performed By: #### L 100.0100 ####[facility] [address] [place], [address] RDW SD 47.6 fl High 35.1-43.9 [facility] Comment on above: Performed By: #### L 100.0100 ####[facility] [address] [place], [address] WBC (Bld) [#/Vol] 6.3 10*3/uL Normal 4.4-11.0 [facility] Comment on above: Performed By: #### L 100.0100 ####[facility] [address] [place], [address] Electrocardiogram reportOrde red By: Danish Tavarez on 06-04-2025 EKG study [facility] Work Phone: XR Chest 2 Viewson 5 Right pleural effusion with multifocal opacification/consolid ation in the lower 1/2 the lungs. The left lung is clear. Report Dictated on Electronically Signed By: Michel York MD Electronically Signed Date/Time: 06/04/2025 7:44 AM [facility] 1955 [id number] Exam Date/Time: 06/01/2025 13:15 Procedure: XR CHEST 2 VIEWS Ordering Provider: LOPEZ HANNAH Reason For Exam: i50.22 CHEST X-RAY PA and lateral CLINICAL INDICATION: Chest pain PA and lateral radiographs of the chest were obtained. COMPARISON: None FINDINGS: The cardiac silhouette is within normal limits. A cardiac device overlies the left chest wall. Right pleural effusion with multifocal opacification/consolid ation in the lower 1/2 the lungs. The left lung is clear. No left pleural effusion or pneumothorax is identified. Degenerative changes of the thoracic spine are noted. [facility] Michel York MD - 06/04/2025 Patient Name: MAN[facility] CAR[facility] 1955 [id number] Exam Date/Time: 06/01/2025 13:15 Procedure: XR CHEST 2 VIEWS Ordering Provider: LOPEZ HANNAH Reason For Exam: i50.22 CHEST X-RAY PA and lateral CLINICAL INDICATION: Chest pain PA and lateral radiographs of the chest were obtained. COMPARISON: None FINDINGS: The cardiac silhouette is within normal limits. A cardiac device overlies the left chest wall. Right pleural effusion with multifocal opacification/consolid ation in the lower 1/2 the lungs. The left lung is clear. No left pleural effusion or pneumothorax is identified. Degenerative changes of the thoracic spine are noted. IMPRESSION: Right pleural effusion with multifocal opacification/consolid ation in the lower 1/2 the lungs. The left lung is clear. Report Dictated on Electronically Signed By: Michel York MD Electronically Signed Date/Time: 06/04/2025 7:[address] [facility] XR Chest 2 ViewsOrdered By: Michel York on 06-04-2025 [facility] Work Phone: CBC W/Diff, Automatedon 05-22 Absolute Lymph 1.36 X10 3/uL Normal 0.83-4.51 [facility] Comment on above: Performed By: #### L 100.0100 ####[facility] [address] [place], [address] Absolute Neut 4.7 X10 3/uL Normal 2.0-7.7 [facility] Comment on above: Performed By: #### L 100.0100 ####[facility] [address] [place], [address] Basophils/100 WBC (Bld) 0.3 % Normal 0-[address] [facility] Comment on above: Performed By: #### L 100.0100 ####[facility] [address] [place], [address] Eosinophils/100 WBC (Bld) 1.6 % Normal 0-5 [facility] Comment on above: Performed By: #### L 100.0100 ####[facility] [address] [place], [address] Erythrocyte distribution width (RBC) [Ratio] 13.6 % Normal 11.6-14.6 [facility] Comment on above: Performed By: #### L 100.0100 ####[facility] [address] [place], [address] Hematocrit (Bld) [Volume fraction] 29.0 % Low 37-47 [facility] Comment on above: Performed By: #### L 100.0100 ####[facility] [address] [place], [address] Hemoglobin (Bld) [Mass/Vol] 9.5 g/dL Low 12.0-15.0 [facility] Comment on above: Performed By: #### L 100.0100 ####[facility] [address] [place], [address] IG% 0.100 Normal 0.0-0.9 [facility] Comment on above: Result Comment: IG% - Immature Granulocytes (promyelocytes, myelocytes andmetamyelocytes) > 1% indicates that a LEFT SHIFT is Present. Performed By: #### L 100.0100 ####[facility] [address] [place], [address] Lymphocytes/100 WBC (Bld) 19.2 % Normal 19-41 [facility] Comment on above: Performed By: #### L 100.0100 ####[facility] [address] [place], [address] MCH (RBC) [Entitic mass] 30.5 pg Normal 27.0-32.0 [facility] Comment on above: Performed By: #### L 100.0100 ####[facility] [address] [place], [address] MCHC (RBC) [Mass/Vol] 32.8 g/dL Normal 32-36 [facility] Comment on above: Performed By: #### L 100.0100 ####[facility] [address] [place], [address] MCV (RBC) [Entitic vol] 93.2 fL Normal 81-99 [facility] Comment on above: Performed By: #### L 100.0100 ####[facility] [address] [place], [address] Monocytes/100 WBC (Bld) 12.4 % High 0-10 [facility] Comment on above: Performed By: #### L 100.0100 ####[facility] [address] [place], [address] Neutrophils/100 WBC (Bld) 66.4 % Normal 47-70 [facility] Comment on above: Performed By: #### L 100.0100 ####[facility] [address] [place], [address] Nucleated RBC (Bld) [#/Vol] 0 10*3/uL Normal 0-5 [facility] Comment on above: Performed By: #### L 100.0100 ####[facility] [address] [place], [address] Platelet mean volume (Bld) [Entitic vol] 10.1 fL Normal 6.2-12.0 [facility] Comment on above: Performed By: #### L 100.0100 ####[facility] [address] [place], [address] Platelets (Bld) [#/Vol] 203 10*3/uL Normal 150-450 [facility] Comment on above: Performed By: #### L 100.0100 ####[facility] [address] [place], [address] RBC (Bld) [#/Vol] 3.11 10*6/uL Low 4.2-5.4 [facility] Comment on above: Performed By: #### L 100.0100 ####[facility] [address] [place], [address] RDW SD 46.3 fl High 35.1-43.9 [facility] Comment on above: Performed By: #### L 100.0100 ####[facility] [address] [place], [address] WBC (Bld) [#/Vol] 7.1 10*3/uL Normal 4.4-11.0 [facility] Comment on above: Performed By: #### L 100.0100 ####[facility] [address] [place], [address] 12 Lead EKGon 06-02-2025 12 Lead EKG Normal [facility] 36on 06-02-2025 36 S: Song called the clinical access center B: He called to report Mansi was admitted to the hospital today A: He wanted to thank Dr. Lopez for her advice. R: She is admitted at [facility]. Patient instructed to call back with worsening symptoms, concerns or questions. Normal [facility] 36 Name of caller requesting page: Song Phone Number of caller: [phone] Facility requesting page: The patient Spouse Reason for Page: The patient states he is taking the patient to [facility] right now [er Dr. Lopez orders. The patient O2 level this morning was 83 and her temperature is 99.1. Provider paged: Antonio Clay MD Practice Name of paged provider: [facility] Page Placed to #: Secure chat Time Page was sent or provider contacted: 10:35 am Page Content: PAGE: The patient Song [phone]; PT. Taylor Caro; The patient states he is taking the patient to [facility] right now per Dr. Lopez orders. The patient O2 level this morning was 83 and her temperature is 99.1. Please call the patient to advise. [facility] Anion gap in Serum or Plasma Ordered By: [facility] Sanders on 06-02-2025 Anion gap [Moles/Vol] 11 mmol/L 5-15 [facility] BUN/creatinine ratioOrdered By: Bossman Sanders on 06-02-2025 Urea nitrogen/Creatinine [Mass ratio] 16.6 mg/mg 10-20 [facility] Bilirubin, totalOrdered By: [facility] Sanders on 06-02-2025 Bilirubin [Mass/Vol] 0.27 mg/dL 0.00-1.30 [facility] Blood cultureOrdered By: Ivana Sanders on 06-02-2025 Bacteria identified Cx Nom (Bld) No growth in 5 days. [facility] Bacteria identified Cx Nom (Bld) No growth in 5 days. [facility] CBC-Complete Blood Cnt No Di ffon 06-02-2025 Erythrocyte distribution width (RBC) [Ratio] 13.4 % Normal 11.6-14.6 [facility] Comment on above: Performed By: #### L 503.7505, L100.0500, L500.4050, L501.2450, L503.6005 ####[facility] [address] [place], [address] Hematocrit (Bld) [Volume fraction] 34.6 % Low 37-47 [facility] Comment on above: Performed By: #### L 503.7505, L100.0500, L500.4050, L501.2450, L503.6005 ####[facility] [address] [place], [address] Hemoglobin (Bld) [Mass/Vol] 11.2 g/dL Low 12.0-15.0 [facility] Comment on above: Performed By: #### L 503.7505, L100.0500, L500.4050, L501.2450, L503.6005 ####[facility] [address] [place], [address] MCH (RBC) [Entitic mass] 30.6 pg Normal 27.0-32.0 [facility] Comment on above: Performed By: #### L 503.7505, L100.0500, L500.4050, L501.2450, L503.6005 ####[facility] [address] [place], [address] MCHC (RBC) [Mass/Vol] 32.4 g/dL Normal 32-36 [facility] Comment on above: Performed By: #### L 503.7505, L100.0500, L500.4050, L501.2450, L503.6005 ####[facility] [address] [place], [address] MCV (RBC) [Entitic vol] 94.5 fL Normal 81-[address] [facility] Comment on above: Performed By: #### L 503.7505, L100.0500, L500.4050, L501.2450, L503.6005 ####[facility] [address] [place], [address] Platelet mean volume (Bld) [Entitic vol] 10.0 fL Normal 6.2-12.0 [facility] Comment on above: Performed By: #### L 503.7505, L100.0500, L500.4050, L501.2450, L503.6005 ####[facility] [address] [place], [address] Platelets (Bld) [#/Vol] 230 10*3/uL Normal 150-450 [facility] Comment on above: Performed By: #### L 503.7505, L100.0500, L500.4050, L501.2450, L503.6005 ####[facility] [address] [place], [address] RBC (Bld) [#/Vol] 3.66 10*6/uL Low 4.2-5.4 [facility] Comment on above: Performed By: #### L 503.7505, L100.0500, L500.4050, L501.2450, L503.6005 ####[facility] [address] [place], [address] RDW SD 46.7 fl High 35.1-43.9 [facility] Comment on above: Performed By: #### L 503.7505, L100.0500, L500.4050, L501.2450, L503.6005 ####[facility] [address] [place], [address] WBC (Bld) [#/Vol] 9.0 10*3/uL Normal 4.4-11.0 [facility] Comment on above: Performed By: #### L 503.7505, L100.0500, L500.4050, L501.2450, L503.6005 ####[facility] [address] [place], [address] CTA Chst, Abd, Pel W and/or WOon 06-02-2025 CTA Chst, Abd, Pel W and/or WO Normal [facility] Carbon dioxide, total [Moles /volume] in Central venous bloodOrdered By: Bossman Sanders on 06-02-2025 CO2 [Moles/Vol] 24.0 mmol/L 21.0-32.0 [facility] Chloride assayOrdered By: Sabino Sanders on 06-02-2025 Chloride [Moles/Vol] 102 mmol/L 98-108 [facility] Comprehensive Metabolic Prof ilon 06-02-2025 Albumin [Mass/Vol] 3.1 g/dL Low 3.4-4.8 [facility] Comment on above: Performed By: #### L 503.7505, L100.0500, L500.4050, L501.2450, L503.6005 ####[facility] [address] [place], [address] Albumin/Globulin [Mass ratio] 0.8 {ratio} Low 0.9-2.4 [facility] Comment on above: Performed By: #### L 503.7505, L100.0500, L500.4050, L501.2450, L503.6005 ####[facility] [address] [place], [address] ALK PHOS 70 U/L Normal 35-104 [facility] Comment on above: Performed By: #### L 503.7505, L100.0500, L500.4050, L501.2450, L503.6005 ####[facility] [address] [place], [address] ALT [Catalytic activity/Vol] 6 U/L Normal <=34 [facility] Comment on above: Performed By: #### L 503.7505, L100.0500, L500.4050, L501.2450, L503.6005 ####[facility] [address] [place], [address] AST [Catalytic activity/Vol] 24 U/L Normal <=31 [facility] Comment on above: Performed By: #### L 503.7505, L100.0500, L500.4050, L501.2450, L503.6005 ####[facility] [address] [place], [address] Bilirubin [Mass/Vol] 0.27 mg/dL Normal 0.00-1.30 [facility] Comment on above: Performed By: #### L 503.7505, L100.0500, L500.4050, L501.2450, L503.6005 ####[facility] [address] [place], [address] BUN/CRE 16.6 RATIO Normal 10-20 [facility] Comment on above: Performed By: #### L 503.7505, L100.0500, L500.4050, L501.2450, L503.6005 ####[facility] [address] [place], [address] Calcium [Mass/Vol] 8.7 mg/dL Normal 7.6-11.0 [facility] Comment on above: Performed By: #### L 503.7505, L100.0500, L500.4050, L501.2450, L503.6005 ####[facility] [address] [place], [address] Chloride [Moles/Vol] 102 mmol/L Normal 98-108 [facility] Comment on above: Performed By: #### L 503.7505, L100.0500, L500.4050, L501.2450, L503.6005 ####[facility] [address] [place], [address] CO2 [Moles/Vol] 24.0 mmol/L Normal 21.0-32.0 [facility] Comment on above: Performed By: #### L 503.7505, L100.0500, L500.4050, L501.2450, L503.6005 ####[facility] [address] [place], [address] Creatinine [Mass/Vol] 1.16 mg/dL Normal 0.70-1.20 [facility] Comment on above: Performed By: #### L 503.7505, L100.0500, L500.4050, L501.2450, L503.6005 ####[facility] [address] [place], [address] ECRCL 42.38 ml/min Low 50-250 [facility] Comment on above: Performed By: #### L 503.7505, L100.0500, L500.4050, L501.2450, L503.6005 ####[facility] [address] [place], [address] GAP 11 Normal 5-15 [facility] Comment on above: Performed By: #### L 503.7505, L100.0500, L500.4050, L501.2450, L503.6005 ####[facility] [address] [place], [address] GFR/1.73 sq M.predicted among non-blacks MDRD (S/P/Bld) [Vol rate/Area] 50 mL/min/{1.73_m2} Low >60 [facility] Comment on above: Result Comment: mL/m in/1.73m2 CKD-EPI Creatinine Equation (2020) Performed By: #### L 503.7505, L100.0500, L500.4050, L501.2450, L503.6005 ####[facility] [address] [place], [address] Globulin (S) [Mass/Vol] 3.8 g/dL Normal 2.2-4.2 [facility] Comment on above: Performed By: #### L 503.7505, L100.0500, L500.4050, L501.2450, L503.6005 ####[facility] [address] [place], [address] Glucose [Mass/Vol] 140 mg/dL High 70-99 [facility] Comment on above: Performed By: #### L 503.7505, L100.0500, L500.4050, L501.2450, L503.6005 ####[facility] [address] [place], [address] Potassium [Moles/Vol] 3.8 mmol/L Normal 3.3-5.1 [facility] Comment on above: Performed By: #### L 503.7505, L100.0500, L500.4050, L501.2450, L503.6005 ####[facility] [address] [place], [address] Sodium [Moles/Vol] 137 mmol/L Normal 133-145 [facility] Comment on above: Performed By: #### L 503.7505, L100.0500, L500.4050, L501.2450, L503.6005 ####[facility] [address] [place], [address] T PROT 6.9 g/dL Normal 5.9-8.4 [facility] Comment on above: Performed By: #### L 503.7505, L100.0500, L500.4050, L501.2450, L503.6005 ####[facility] [address] [place], [address] Urea nitrogen [Mass/Vol] 19 mg/dL Normal 4-19 [facility] Comment on above: Performed By: #### L 503.7505, L100.0500, L500.4050, L501.2450, L503.6005 ####[facility] [address] [place], [address] Emergency Department Summary on 06-02-2025 Emergency Department Summary Normal [facility] Erythrocyte distribution wid th ratioOrdered By: Bossman Sanders on 06-02-2025 Erythrocyte distribution width (RBC) [Ratio] 13.4 % 11.6-14.6 [facility] Erythrocyte distribution wid th standard deviationOrdered By: Bossman Sanders on 06-02-2025 Erythrocyte distribution width (RBC) [Ratio] 46.7 fl High 35.1-43.9 [facility] Glomerular filtration rate ( GFR) estimation/1.73 sq m using serum, plasma, or whole bOrdered By: Bossman Sanders on 06-02-2025 GFR/1.73 sq M.predicted among non-blacks MDRD (S/P/Bld) [Vol rate/Area] 50 mL/min/{1.73_m2} Low >60 [facility] H AND P Exam - Hospitaliston 06-02-2025 H&P Exam - Hospitalist Normal [facility] Hematocrit Auto (Bld) [Volum e fraction]Ordered By: Bossman Sanders on 06-02-2025 Hematocrit (Bld) [Volume fraction] 34.6 % Low 37-47 [facility] Hemoglobin measurementOrdere d By: Bossman Sanders on 06-02-2025 Hemoglobin (Bld) [Mass/Vol] 11.2 g/dL Low 12.0-15.0 [facility] Influenza virus A and B and SARS-CoV-2 (COVID-19) and Respiratory syncytial virus RNAOrdered By: Bossman Sanders on 06-02-2025 SARS-CoV-2 (COVID-19) RNA ENRIQUE+probe Ql (Unsp spec) [facility] L503.7505on 06-02-2025 Natriuretic peptide B (Bld) [Mass/Vol] 948 pg/mL High <=900 [facility] Comment on above: Result Comment: Hear t Failure Unlikely: < 300 pg/mLHeart Failure Likely< 50 Years: > 450 pg/mL50-75 Years: > 900 pg/mL>75 Years: > 1800 pg/mL Performed By: #### L 503.7505, L100.0500, L500.4050, L501.2450, L503.6005 ####[facility] [address] [place], [place], [address] Lactic Acidon 06-02-2025 Lactate [Moles/Vol] 1.3 mmol/L Normal 0.0-2.0 [facility] Comment on above: Order Comment: Y Performed By: #### L 503.7505, L100.0500, L500.4050, L501.2450, L503.6005 ####[facility] [address] [place], [place], [address] Lipaseon 06-02-2025 Lipase [Catalytic activity/Vol] 15 U/L Normal 13-75 [facility] Comment on above: Result Comment: Josy fay note:LIPASE revised reference range effective 23.New Lipase methodology. Expected to produce lower valuesthan the previous assay method.NEW Reference Range: 13 - 75 U/L Performed By: #### L 503.7505, L100.0500, L500.4050, L501.2450, L503.6005 ####[facility] [address] [place], [address] M100.678on 06-02-2025 M100.678 SARS-CoV-2 (COVID 19 ) Negative INFLUENZA A Negative INFLUENZA B Negative RSV PCR Negative Normal [facility] Comment on above: Performed By: #### M 100.678 ####[facility] [address] [place], [address] MCV (mean corpuscular volume ) determinationOrdered By: Bossman Sanders on 06-02-2025 MCV (RBC) [Entitic vol] 94.5 fL 81-99 [facility] Mean corpuscular hemoglobin (MCH) determinationOrdered By: Bossman Sanders on 06-02-2025 MCH (RBC) [Entitic mass] 30.6 pg 27.0-32.0 [facility] Natriuretic peptide.B prohor guillermina N-Terminal [Mass/volume] in Serum or PlasmaOrdered By: Bossman Sanders on 06-02-2025 Natriuretic peptide.B prohormone N-Terminal [Mass/Vol] 948 pg/mL High <900 [facility] No Panel InformationOrdered By: Bossman Sanders on 06-02-2025 24 U/L <32 [facility] Platelet countOrdered By: Sabino Sanders on 06-02-2025 Platelets (Bld) [#/Vol] 230 10*3/uL 150-450 [facility] Potassium measurement (mass/ volume)Ordered By: Bossman Sanders on 06-02-2025 Potassium (Unsp spec) [Mass/Vol] 3.8 mmol/L 3.3-5.1 [facility] RBC Auto (Bld) [#/Vol]Ordere d By: Bossman Sanders on 06-02-2025 RBC (Bld) [#/Vol] 3.66 10*6/uL Low 4.2-5.4 [facility] RESPIRATORY PANEL MOLECULARo n 06-02-2025 RP PANEL Normal [facility] Comment on above: Performed By: #### M 100.638 ####[facility] [address] [place], [address] Respiratory pathogens detect ion panel by molecular detection methodOrdered By: Bossman Sanders on 06-02-2025 Respiratory pathogens DNA and RNA panel ENRIQUE+probe (Resp) [facility] Serum creatinine measurement (mass/volume)Ordered By: Bossman Sanders on 06-02-2025 Creatinine [Mass/Vol] 1.16 mg/dL 0.70-1.20 [facility] Serum globulin measurementOr dered By: Bossman Sanders on 06-02-2025 Globulin (S) [Mass/Vol] 3.8 g/dL 2.2-4.[address] [facility] Serum glucose measurement (m ass/volume)Ordered By: Bossman Sanders on 06-02-2025 Glucose [Mass/Vol] 140 mg/dL High 70-99 [facility] Serum or plasma alanine cisneros otransferase (ALT) measurementOrdered By: Bossman Sanders on 06-02-2025 ALT [Catalytic activity/Vol] 6 U/L <35 [facility] Serum or plasma albumin loco urement (mass/volume)Ordered By: Bossman Sanders on 06-02-2025 Albumin [Mass/Vol] 3.1 g/dL Low 3.4-4.8 [facility] Serum or plasma albumin/glob ulin mass ratioOrdered By: [facility] Sanders on 06-02-2025 Albumin/Globulin [Mass ratio] 0.8 {ratio} Low 0.9-2.4 [facility] Serum or plasma alkaline sergio sphatase measurementOrdered By: Bossman Sanders on 06-02-2025 ALP [Catalytic activity/Vol] 70 U/L 35-104 [facility] Serum or plasma calcium loco urement (mass/volume)Ordered By: Bossman Sanders on 07-12-2025 Calcium [Mass/Vol] 8.7 mg/dL 7.6-11.0 [facility] Serum or plasma urea nitroge n measurement (mass/volume)Ordered By: Remus Marilyn on 06-02-2025 Urea nitrogen [Mass/Vol] 19 mg/dL 4-19 [facility] Sodium levelOrdered By: Remu s Marilyn on 06-02-2025 Sodium [Moles/Vol] 137 mmol/L 133-145 [facility] Total proteinOrdered By: Rem us Ungur on 06-02-2025 Protein [Mass/Vol] 6.9 g/dL 5.9-8.4 [facility] White blood cell (WBC) count Ordered By: Remus Marilyn on 06-02-2025 WBC (Bld) [#/Vol] 9.0 10*3/uL 4.4-11.0 [facility] XR Chest 2 Viewson Radiology Study observation (narrative) [facility] Gastroenterology Visit Repor ton 05-30-2025 Gastroenterology Visit Report Normal [facility] Cardiology Visit Reporton Cardiology Visit Report Normal [facility] Urine Cultureon 05-25-2025 URC Normal [facility] Comment on above: Performed By: #### M 100.9206 ####[facility] [address] [place], [address] Absolute lymphocyte countOrd ered By: Fazal Heller on 05-22-2025 Lymphocytes Auto (Unsp spec) [#/Vol] 1.30 10*3/uL 0.83-4.51 [facility] Absolute neutrophil countOrd ered By: Fazal Heller on 05-22-2025 Neutrophils (Bld) [#/Vol] 5.0 10*3/uL 2.0-7.7 [facility] Anion gap in Serum or Plasma Ordered By: Fazal Heller on 05-22-2025 Anion gap [Moles/Vol] 10 mmol/L 5-15 [facility] Automated blood erythrocyte countOrdered By: Fazal Heller on 05-22-2025 RBC (Bld) [#/Vol] 3.05 10*6/uL Low 4.2-5.4 [facility] Comment on above: Performed By: #### L 500.4050, L501.2450, L100.0100 ####[place] [facility] [address] [place], [address] Automated blood hematocrit ( percentage)Ordered By: Fazal Heller on 05-22-2025 Hematocrit (Bld) [Volume fraction] 29.1 % Low 37-47 [facility] Comment on above: Performed By: #### L 500.4050, L501.2450, L100.0100 ####[facility] [address] [place], [address] Automated lymphocyte count a s percentage of total leukocytesOrdered By: Fazal Heller on 05-22-2025 Lymphocytes/100 WBC Auto (Unsp spec) 17.5 % Low 19-41 [facility] BUN/creatinine ratioOrdered By: Fazal Heller on 05-22-2025 Urea nitrogen/Creatinine [Mass ratio] 20.0 mg/mg 10-20 [facility] Basophil percentageOrdered B y: Fazal Heller on 05-22-2025 Basophils/100 WBC (Bld) 0.4 % Normal 0-[address] [facility] Comment on above: Performed By: #### L 500.4050, L501.2450, L100.0100 ####[facility] [address] [place], [place], [address] Bilirubin Test strip Ql (U)O rdered By: Fazal Heller on 05-22-2025 Bilirubin Ql (U) 6 mg/dL High Negative [facility] Comment on above: COLOR OF URINE MAY A FFECT DIPSTICK RESULTS. Bilirubin, totalOrdered By: Fazal Heller on 05-22-2025 Bilirubin [Mass/Vol] 0.27 mg/dL 0.00-1.30 [facility] CBC W/Diff, Automatedon Absolute Lymph 1.30 X10 3/uL Normal 0.83-4.51 [facility] Comment on above: Performed By: #### L 500.4050, L501.2450, L100.0100 ####[facility] [address] [place], [address] Absolute Neut 5.0 X10 3/uL Normal 2.0-7.7 [facility] Comment on above: Performed By: #### L 500.4050, L501.2450, L100.0100 ####[facility] [address] [place], [address] Lymphocytes/100 WBC (Bld) 17.5 % Low 19-41 [facility] Comment on above: Performed By: #### L 500.4050, L501.2450, L100.0100 ####[facility] [address] [place], [address] RDW SD 45.8 fl High 35.1-43.9 [facility] Comment on above: Performed By: #### L 500.4050, L501.2450, L100.0100 ####[facility] [address] [place], [address] Absolute Lymph 1.18 X10 3/uL Normal 0.83-4.51 [facility] Comment on above: Performed By: #### L 501.2450, L500.4050, L100.0100 ####[facility] [address] [place], [address] Absolute Neut 5.1 X10 3/uL Normal 2.0-7.7 [facility] Comment on above: Performed By: #### L 501.2450, L500.4050, L100.0100 ####[facility] [address] [place], [address] Basophils/100 WBC (Bld) 0.4 % Normal 0-[address] [facility] Comment on above: Performed By: #### L 501.2450, L500.4050, L100.0100 ####[facility] [address] [place], [address] Eosinophils/100 WBC (Bld) 2.1 % Normal 0-5 [facility] Comment on above: Performed By: #### L 501.2450, L500.4050, L100.0100 ####[facility] [address] [place], [address] Erythrocyte distribution width (RBC) [Ratio] 13.2 % Normal 11.6-14.6 [facility] Comment on above: Performed By: #### L 501.2450, L500.4050, L100.0100 ####[facility] [address] [place], [address] Hematocrit (Bld) [Volume fraction] 32.8 % Low 37-47 [facility] Comment on above: Performed By: #### L 501.2450, L500.4050, L100.0100 ####[facility] [address] [place], [address] Hemoglobin (Bld) [Mass/Vol] 10.6 g/dL Low 12.0-15.0 [facility] Comment on above: Performed By: #### L 501.2450, L500.4050, L100.0100 ####[facility] [address] [place], [address] IG% 0.400 Normal 0.0-0.9 [facility] Comment on above: Result Comment: IG% - Immature Granulocytes (promyelocytes, myelocytes andmetamyelocytes) > 1% indicates that a LEFT SHIFT is Present. Performed By: #### L 500.4050, L501.2450, L100.0100 ####[facility] [address] [place], [address] Performed By: #### L 501.2450, L500.4050, L100.0100 ####[facility] [address] [place], [address] Lymphocytes/100 WBC (Bld) 16.2 % Low 19-41 [facility] Comment on above: Performed By: #### L 501.2450, L500.4050, L100.0100 ####[facility] [address] [place], [address] MCH (RBC) [Entitic mass] 30.9 pg Normal 27.0-32.0 [facility] Comment on above: Performed By: #### L 501.2450, L500.4050, L100.0100 ####[facility] [address] [place], [address] MCHC (RBC) [Mass/Vol] 32.3 g/dL Normal 32-36 [facility] Comment on above: Performed By: #### L 501.2450, L500.4050, L100.0100 ####[facility] [address] [place], [address] MCV (RBC) [Entitic vol] 95.6 fL Normal 81-99 [facility] Comment on above: Performed By: #### L 501.2450, L500.4050, L100.0100 ####[facility] [address] [place], [address] Monocytes/100 WBC (Bld) 10.4 % High 0-[address] [facility] Comment on above: Performed By: #### L 501.2450, L500.4050, L100.0100 ####[facility] [address] [place], [address] Neutrophils/100 WBC (Bld) 70.5 % High 47-70 [facility] Comment on above: Performed By: #### L 501.2450, L500.4050, L100.0100 ####[facility] [address] [place], [address] Nucleated RBC (Bld) [#/Vol] 0 10*3/uL Normal 0-5 [facility] Comment on above: Performed By: #### L 500.4050, L501.2450, L100.0100 ####[facility] [address] [place], [address] Performed By: #### L 501.2450, L500.4050, L100.0100 ####[facility] [address] [place], [address] Platelet mean volume (Bld) [Entitic vol] 10.2 fL Normal 6.2-12.0 [facility] Comment on above: Performed By: #### L 501.2450, L500.4050, L100.0100 ####[facility] [address] [place], [address] Platelets (Bld) [#/Vol] 221 10*3/uL Normal 150-450 [facility] Comment on above: Performed By: #### L 501.2450, L500.4050, L100.0100 ####[facility] [address] [place], [address] RBC (Bld) [#/Vol] 3.43 10*6/uL Low 4.2-5.4 [facility] Comment on above: Performed By: #### L 501.2450, L500.4050, L100.0100 ####[facility] [address] [place], [address] RDW SD 46.4 fl High 35.1-43.9 [facility] Comment on above: Performed By: #### L 501.2450, L500.4050, L100.0100 ####[facility] [address] [place], [address] WBC (Bld) [#/Vol] 7.3 10*3/uL Normal 4.4-11.0 [facility] Comment on above: Performed By: #### L 501.2450, L500.4050, L100.0100 ####[facility] [address] [place], [address] CTA Abd/Pelvis W/WO Contrast on 05-22-2025 CTA Abd/Pelvis W/WO Contrast Normal [facility] Carbon dioxide, total [Moles /volume] in Central venous bloodOrdered By: Fazal Heller on 05-22-2025 CO2 [Moles/Vol] 25.3 mmol/L 21.0-32.0 [facility] Chloride assayOrdered By: Renny Heller on 05-22-2025 Chloride [Moles/Vol] 102 mmol/L 98-108 [facility] Comprehensive Metabolic Prof ilon 05-22-2025 Albumin [Mass/Vol] 3.1 g/dL Low 3.4-4.8 [facility] Comment on above: Performed By: #### L 500.4050, L501.2450, L100.0100 ####[facility] [address] [place], [address] Albumin/Globulin [Mass ratio] 0.9 {ratio} Normal 0.9-2.4 [facility] Comment on above: Performed By: #### L 500.4050, L501.2450, L100.0100 ####[facility] [address] [place], [address] ALK PHOS 67 U/L Normal 35-104 [facility] Comment on above: Performed By: #### L 500.4050, L501.2450, L100.0100 ####[facility] [address] [place], [address] ALT [Catalytic activity/Vol] 7 U/L Normal <=34 [facility] Comment on above: Performed By: #### L 500.4050, L501.2450, L100.0100 ####[facility] [address] [place], [address] AST [Catalytic activity/Vol] 28 U/L Normal <=31 [facility] Comment on above: Performed By: #### L 500.4050, L501.2450, L100.0100 ####[facility] [address] [place], [address] Bilirubin [Mass/Vol] 0.27 mg/dL Normal 0.00-1.30 [facility] Comment on above: Performed By: #### L 500.4050, L501.2450, L100.0100 ####[facility] [address] [place], [address] BUN/CRE 20.0 RATIO Normal 10-20 [facility] Comment on above: Performed By: #### L 500.4050, L501.2450, L100.0100 ####[facility] [address] [place], [address] Calcium [Mass/Vol] 8.7 mg/dL Normal 7.6-11.0 [facility] Comment on above: Performed By: #### L 500.4050, L501.2450, L100.0100 ####[facility] [address] [place], [address] Chloride [Moles/Vol] 102 mmol/L Normal 98-108 [facility] Comment on above: Performed By: #### L 500.4050, L501.2450, L100.0100 ####[facility] [address] [place], [address] CO2 [Moles/Vol] 25.3 mmol/L Normal 21.0-32.0 [facility] Comment on above: Performed By: #### L 500.4050, L501.2450, L100.0100 ####[facility] [address] [place], [address] Creatinine [Mass/Vol] 1.42 mg/dL High 0.70-1.20 [facility] Comment on above: Performed By: #### L 500.4050, L501.2450, L100.0100 ####[facility] [address] [place], [address] ECRCL 35.59 ml/min Low 50-250 [facility] Comment on above: Performed By: #### L 500.4050, L501.2450, L100.0100 ####[facility] [address] [place], [address] GAP 10 Normal 5-15 [facility] Comment on above: Performed By: #### L 500.4050, L501.2450, L100.0100 ####[facility] [address] [place], [address] GFR/1.73 sq M.predicted among non-blacks MDRD (S/P/Bld) [Vol rate/Area] 39 mL/min/{1.73_m2} Low >60 [facility] Comment on above: Result Comment: mL/m in/1.73m2 CKD-EPI Creatinine Equation (2020) Performed By: #### L 500.4050, L501.2450, L100.0100 ####[facility] [address] [place], [address] Globulin (S) [Mass/Vol] 3.3 g/dL Normal 2.2-4.2 [facility] Comment on above: Performed By: #### L 500.4050, L501.2450, L100.0100 ####[facility] [address] [place], [address] Glucose [Mass/Vol] 173 mg/dL High 70-99 [facility] Comment on above: Performed By: #### L 500.4050, L501.2450, L100.0100 ####[facility] [address] [place], [address] Potassium [Moles/Vol] 4.6 mmol/L Normal 3.3-5.1 [facility] Comment on above: Performed By: #### L 500.4050, L501.2450, L100.0100 ####[facility] [address] [place], [address] Sodium [Moles/Vol] 137 mmol/L Normal 133-145 [facility] Comment on above: Performed By: #### L 500.4050, L501.2450, L100.0100 ####[facility] [address] [place], [address] T PROT 6.4 g/dL Normal 5.9-8.4 [facility] Comment on above: Performed By: #### L 500.4050, L501.2450, L100.0100 ####[facility] [address] [place], [address] Urea nitrogen [Mass/Vol] 28 mg/dL High 4-19 [facility] Comment on above: Performed By: #### L 500.4050, L501.2450, L100.0100 ####[facility] [address] [place], [address] Albumin [Mass/Vol] 3.2 g/dL Low 3.4-4.8 [facility] Comment on above: Performed By: #### L 501.2450, L500.4050, L100.0100 ####[facility] [address] [place], [address] Albumin/Globulin [Mass ratio] 0.9 {ratio} Normal 0.9-2.4 [facility] Comment on above: Performed By: #### L 501.2450, L500.4050, L100.0100 ####[facility] [address] [place], [address] ALK PHOS 74 U/L Normal 35-104 [facility] Comment on above: Performed By: #### L 501.2450, L500.4050, L100.0100 ####[facility] [address] [place], [address] ALT [Catalytic activity/Vol] 6 U/L Normal <=34 [facility] Comment on above: Performed By: #### L 501.2450, L500.4050, L100.0100 ####[facility] [address] [place], [address] AST [Catalytic activity/Vol] 30 U/L Normal <=31 [facility] Comment on above: Performed By: #### L 501.2450, L500.4050, L100.0100 ####[facility] [address] [place], [address] Bilirubin [Mass/Vol] 0.33 mg/dL Normal 0.00-1.30 [facility] Comment on above: Performed By: #### L 501.2450, L500.4050, L100.0100 ####[facility] [address] [place], [address] BUN/CRE 19.7 RATIO Normal 10-20 [facility] Comment on above: Performed By: #### L 501.2450, L500.4050, L100.0100 ####[facility] [address] [place], [address] Calcium [Mass/Vol] 9.0 mg/dL Normal 7.6-11.0 [facility] Comment on above: Performed By: #### L 501.2450, L500.4050, L100.0100 ####[facility] [address] [place], [address] Chloride [Moles/Vol] 100 mmol/L Normal 98-108 [facility] Comment on above: Performed By: #### L 501.2450, L500.4050, L100.0100 ####[facility] [address] [place], [address] CO2 [Moles/Vol] 23.7 mmol/L Normal 21.0-32.0 [facility] Comment on above: Performed By: #### L 501.2450, L500.4050, L100.0100 ####[facility] [address] [place], [address] Creatinine [Mass/Vol] 1.39 mg/dL High 0.70-1.20 [facility] Comment on above: Performed By: #### L 501.2450, L500.4050, L100.0100 ####[facility] [address] [place], [address] ECRCL 36.36 ml/min Low 50-250 [facility] Comment on above: Performed By: #### L 501.2450, L500.4050, L100.0100 ####[facility] [address] [place], [address] GAP 12 Normal 5-15 [facility] Comment on above: Performed By: #### L 501.2450, L500.4050, L100.0100 ####[facility] [address] [place], [address] GFR/1.73 sq M.predicted among non-blacks MDRD (S/P/Bld) [Vol rate/Area] 40 mL/min/{1.73_m2} Low >60 [facility] Comment on above: Result Comment: mL/m in/1.73m2 CKD-EPI Creatinine Equation (2020) Performed By: #### L 501.2450, L500.4050, L100.0100 ####[facility] [address] [place], [address] Globulin (S) [Mass/Vol] 3.6 g/dL Normal 2.2-4.2 [facility] Comment on above: Performed By: #### L 501.2450, L500.4050, L100.0100 ####[facility] [address] [place], [address] Glucose [Mass/Vol] 236 mg/dL High 70-99 [facility] Comment on above: Performed By: #### L 501.2450, L500.4050, L100.0100 ####[facility] [address] [place], [address] Potassium [Moles/Vol] 4.4 mmol/L Normal 3.3-5.1 [facility] Comment on above: Performed By: #### L 501.2450, L500.4050, L100.0100 ####[facility] [address] [place], [address] Sodium [Moles/Vol] 136 mmol/L Normal 133-145 [facility] Comment on above: Performed By: #### L 501.2450, L500.4050, L100.0100 ####[facility] [address] [place], [address] T PROT 6.8 g/dL Normal 5.9-8.4 [facility] Comment on above: Performed By: #### L 501.2450, L500.4050, L100.0100 ####[facility] [address] [place], [address] Urea nitrogen [Mass/Vol] 27 mg/dL High 4-19 [facility] Comment on above: Performed By: #### L 501.2450, L500.4050, L100.0100 ####[facility] [address] [place], [address] Emergency Department Summary on 05-22-2025 Emergency Department Summary Normal [facility] Eosinophil percentageOrdered By: Fazal Heller on 05-22-2025 Eosinophils/100 WBC (Bld) 2.2 % Normal 0-5 [facility] Comment on above: Performed By: #### L 500.4050, L501.2450, L100.0100 ####[facility] [address] [place], [address] Erythrocyte distribution wid th ratioOrdered By: Fazal Heller on 05-22-2025 Erythrocyte distribution width (RBC) [Ratio] 13.2 % Normal 11.6-14.6 [facility] Comment on above: Performed By: #### L 500.4050, L501.2450, L100.0100 ####[facility] [address] [place], [address] Erythrocyte distribution wid th standard deviationOrdered By: Fazal Heller on 05-22-2025 Erythrocyte distribution width (RBC) [Ratio] 45.8 fl High 35.1-43.9 [facility] Glomerular filtration rate ( GFR) estimation/1.73 sq m using serum, plasma, or whole bOrdered By: Fazal Heller on 05-22-2025 GFR/1.73 sq M.predicted among non-blacks MDRD (S/P/Bld) [Vol rate/Area] 39 mL/min/{1.73_m2} Low >60 [facility] Comment on above: mL/min/1.73m2 CKD-EP I Creatinine Equation (2020) Hemoglobin measurementOrdere d By: Fazal Heller on 05-22-2025 Hemoglobin (Bld) [Mass/Vol] 9.4 g/dL Low 12.0-15.0 [facility] Comment on above: Performed By: #### L 500.4050, L501.2450, L100.0100 ####[facility] [address] [place], [address] Immature granulocytes/100 WB C Auto (Bld)Ordered By: Fazal Heller on 05-22-2025 Immature granulocytes/100 WBC (Bld) 0.400 % 0.0-0.9 [facility] Comment on above: IG% - Immature Granu locytes (promyelocytes, myelocytes and metamyelocytes) > 1% indicates that a LEFT SHIFT is Present. Ketones Test strip Ql (U)Ord ered By: Fazal Heller on 05-22-2025 Ketones Ql (U) Negative Negative [facility] - Chemistry and C hemistry - challengeOrdered By: Fazal Heller on 05-22-2025 AST [Catalytic activity/Vol] 28 U/L <32 [facility] Lipaseon 05-22-2025 Lipase [Catalytic activity/Vol] 13 U/L Normal 13-75 [facility] Comment on above: Result Comment: Plea se note:LIPASE revised reference range effective 23.New Lipase methodology. Expected to produce lower valuesthan the previous assay method.NEW Reference Range: 13 - 75 U/L Performed By: #### L 500.4050, L501.2450, L100.0100 ####[facility] [address] [place], [place], [id number]) Lipase [Catalytic activity/Vol] 15 U/L Normal 13-75 [facility] Comment on above: Result Comment: Plehema se note:LIPASE revised reference range effective 23.New Lipase methodology. Expected to produce lower valuesthan the previous assay method.NEW Reference Range: 13 - 75 U/L Performed By: #### L 501.2450, L500.4050, L100.0100 ####[facility] [address] [place], [address] Lipase measurementOrdered By : Fazal Heller on 05-22-2025 Lipase [Catalytic activity/Vol] 13 U/L 13-75 [facility] Comment on above: Please note:LIPASE r evised reference range effective 23. New Lipase methodology. Expected to produce lower values than the previous assay method. NEW Reference Range: 13 - 75 U/L MCV (mean corpuscular volume ) determinationOrdered By: Fazal Heller on 05-22-2025 MCV (RBC) [Entitic vol] 95.4 fL Normal 81-[address] [facility] Comment on above: Performed By: #### L 500.4050, L501.2450, L100.0100 ####[facility] [address] [place], [place], [id number] Mean corpuscular hemoglobin (MCH) determinationOrdered By: Fazal Heller on 05-22-2025 MCH (RBC) [Entitic mass] 30.8 pg Normal 27.0-32.0 [facility] Comment on above: Performed By: #### L 500.4050, L501.2450, L100.0100 ####[facility] [address] [place], [place], [id number] Mean corpuscular hemoglobin concentration (MCHC) determinationOrdered By: Fazal Heller on 05-22-2025 MCHC (RBC) [Mass/Vol] 32.3 g/dL Normal 32-36 [facility] Comment on above: Performed By: #### L 500.4050, L501.2450, L100.0100 ####[facility] [address] [place], [address] Mean platelet volume determi nationOrdered By: Fazal Heller on 05-22-2025 Platelet mean volume (Bld) [Entitic vol] 10.4 fL Normal 6.2-12.0 [facility] Comment on above: Performed By: #### L 500.4050, L501.2450, L100.0100 ####[facility] [address] [place], [address] Microscopic analysis of urin e for red blood cells (RBC)Ordered By: Fazal Heller on 05-22-2025 Microscopic analysis of urine for red blood cells (RBC) 0-5 SEEN /hpf 0-5 [facility] Monocyte percentageOrdered B y: Fazal Heller on 05-22-2025 Monocytes/100 WBC (Bld) 12.5 % High 0-[address] [facility] Comment on above: Performed By: #### L 500.4050, L501.2450, L100.0100 ####[facility] [address] [place], [place], [address] Mucus LM Ql (Urine sed)Order ed By: Fazal Heller on 05-22-2025 Mucus Ql (Urine sed) 0 SEEN /hpf [facility] Neutrophil percentageOrdered By: Fazal Heller on 05-22-2025 Neutrophils/100 WBC (Bld) 67.0 % Normal 47-70 [facility] Comment on above: Performed By: #### L 500.4050, L501.2450, L100.0100 ####[facility] [address] [place], [place], [address] Nitrite Test strip Ql (U)Ord ered By: Fazal Heller on 05-22-2025 Nitrite Ql (U) Positive High Negative [facility] No Panel InformationOrdered By: Fazal Heller on 05-22-2025 28 U/L <32 [facility] Nucleated red blood cell per centageOrdered By: Fazal Heller on 05-22-2025 Nucleated RBC/100 WBC (Bld) [Ratio] 0 % 0-5 [facility] Platelet countOrdered By: Renny Heller on 05-22-2025 Platelets (Bld) [#/Vol] 193 10*3/uL Normal 150-450 [facility] Comment on above: Performed By: #### L 500.4050, L501.2450, L100.0100 ####[facility] [address] [place], [address] Potassium measurement (mass/ volume)Ordered By: Fazal Heller on 05-22-2025 Potassium (Unsp spec) [Mass/Vol] 4.6 mmol/L 3.3-5.1 [facility] Protein Test strip Ql (U)Ord ered By: Fazal Heller on 05-22-2025 Protein Ql (U) 30 mg/dl High Negative [facility] Serum creatinine measurement (mass/volume)Ordered By: Fazal Heller on 05-22-2025 Creatinine [Mass/Vol] 1.42 mg/dL High 0.70-1.20 [facility] Serum globulin measurementOr dered By: Fazal Heller on 05-22-2025 Globulin (S) [Mass/Vol] 3.3 g/dL 2.2-4.[address] [facility] Serum glucose measurement (m ass/volume)Ordered By: Fazal Heller on 05-22-2025 Glucose [Mass/Vol] 173 mg/dL High 70-99 [facility] Serum or plasma alanine cisneros otransferase (ALT) measurementOrdered By: Fazal Heller on 05-22-2025 ALT [Catalytic activity/Vol] 7 U/L <35 [facility] Serum or plasma albumin loco urement (mass/volume)Ordered By: Fazal Heller on 05-22-2025 Albumin [Mass/Vol] 3.1 g/dL Low 3.4-4.8 [facility] Serum or plasma albumin/glob ulin mass ratioOrdered By: Fazal Heller on 05-22-2025 Albumin/Globulin [Mass ratio] 0.9 {ratio} 0.9-2.4 [facility] Serum or plasma alkaline sergio sphatase measurementOrdered By: Fazal Heller on 05-22-2025 ALP [Catalytic activity/Vol] 67 U/L 35-104 [facility] Serum or plasma calcium loco urement (mass/volume)Ordered By: Fazal Heller on 05-22-2025 Calcium [Mass/Vol] 8.7 mg/dL 7.6-11.0 [facility] Serum or plasma urea nitroge n measurement (mass/volume)Ordered By: Fazal Heller on 05-22-2025 Urea nitrogen [Mass/Vol] 28 mg/dL High 4-19 [facility] Sodium levelOrdered By: Nelly Heller on 05-22-2025 Sodium [Moles/Vol] 137 mmol/L 133-145 [facility] Squamous epithelial cells de tection in urine sediment by light microscopyOrdered By: Fazal Heller on 05-22-2025 Epithelial cells.squamous LM Ql (Urine sed) 0 SEEN /hpf 5-10 [facility] Total proteinOrdered By: Radha Heller on 05-22-2025 Protein [Mass/Vol] 6.4 g/dL 5.9-8.4 [facility] Urinalysis, Completeon 05-22 BACTERIA 1+ /hpf Normal None Seen [facility] Comment on above: Order Comment: COLOR OF URINE MAY AFFECT DIPSTICK RESULTS.CLEAN CATCH Performed By: #### L [id number] ####[facility] [id number] [place], [address] RBC 0-5 SEEN Normal 0-5 [facility] Comment on above: Order Comment: COLOR OF URINE MAY AFFECT DIPSTICK RESULTS.CLEAN CATCH Performed By: #### L [id number] ####[facility] [id number] [place], [address] WBC 25-50 SEEN Normal 0-5 [facility] Comment on above: Order Comment: COLOR OF URINE MAY AFFECT DIPSTICK RESULTS.CLEAN CATCH Performed By: #### L [id number] ####[facility] [address] [place], [address] EPI,SQUAMOUS 0 SEEN Normal 5-10 [facility] Comment on above: Order Comment: COLOR OF URINE MAY AFFECT DIPSTICK RESULTS.CLEAN CATCH Performed By: #### L 400.0001 ####[facility] [address] [place], [address] Mucus Ql (Urine sed) 0 SEEN Normal [facility] Comment on above: Order Comment: COLOR OF URINE MAY AFFECT DIPSTICK RESULTS.CLEAN CATCH Performed By: #### L 400.0001 ####[facility] [address] [place], [address] Urine clarityOrdered By: Radha Heller on 05-22-2025 Clarity (U) Sl. Cloudy Clear [facility] Urine color determinationOrd ered By: Fazal Heller on 05-22-2025 Color (U) Ena Yellow [facility] Urine cultureOrdered By: Radha Heller on 05-22-2025 Bacteria identified Cx Nom (U) Pseudomonas aeruginosa Abnormal [facility] Urine glucose detectionOrder ed By: Fazal Heller on 07-01-2025 Glucose Ql (U) Normal mg/dl Normal [facility] Urine leukocyte esterase det ection by dipstickOrdered By: Fazal Heller on 05-22-2025 Leukocyte esterase Test strip Ql (U) 100 /ul High Negative [facility] Urine pHOrdered By: Fazal reis on 05-22-2025 pH (U) 7.0 [pH] 5.0 - 8.0 [facility] Urine sediment bacteria coun t by microscopy (number/high power field)Ordered By: Fazal Heller on 05-22-2025 Bacteria LM.HPF (Urine sed) [#/Area] 1 /[HPF] None Seen [facility] Urine specific gravity measu rementOrdered By: Fazal Heller on 05-22-2025 Specific gravity (U) [Rel density] 1.005 1.002-1.030 [facility] Urine urobilinogen measureme ntOrdered By: Fazal Heller on 05-22-2025 Urobilinogen Ql (U) 8 mg/dl High Normal [facility] White blood cell (WBC) count Ordered By: Fazal Heller on 05-22-2025 WBC (Bld) [#/Vol] 7.4 10*3/uL Normal 4.4-11.0 [facility] Comment on above: Performed By: #### L 500.4050, L501.2450, L100.0100 ####[facility] [address] [place], [place], [id number] White blood cell countOrdere d By: Fazal Heller on 05-22-2025 White blood cell count 25-50 SEEN /hpf 0-5 [facility] Bedside Glucoseon 05-03-2025 FINGERSTICK GLU 136 mg/dL High 74-106 [facility] Comment on above: Result Comment: TORRES GEMENT OF PATIENT CARE PER NURSING PROTOCOL Performed By: #### L 501.080 ####[facility] [address] [place], [place], [id number] [facility] deOrdered By: Alonso Marte on 05-03-2025 Glucose [Mass/Vol] 136 mg/dL High 74-106 [facility] Comment on above: MANAGEMENT OF PATIEN T CARE PER NURSING PROTOCOL Bedside Glucoseon 05-02-2025 FINGERSTICK GLU 149 mg/dL High 74-106 [facility] Comment on above: Result Comment: TORRES GEMENT OF PATIENT CARE PER NURSING PROTOCOL Performed By: #### L 501.080 ####[facility] [address] [place], [address] FINGERSTICK GLU 136 mg/dL High 74-106 [facility] Comment on above: Result Comment: TORRES GEMENT OF PATIENT CARE PER NURSING PROTOCOL Performed By: #### L 501.080 ####[facility] [address] [place], [address] Absolute lymphocyte countOrd ered By: Alonso Marte on 05-01-2025 Lymphocytes Auto (Unsp spec) [#/Vol] 1.34 10*3/uL 0.83-4.51 [facility] Absolute neutrophil countOrd ered By: Alonso Marte on 05-01-2025 Neutrophils (Bld) [#/Vol] 3.0 10*3/uL 2.0-7.7 [facility] Anion gap in Serum or Plasma Ordered By: Alonso Marte on 05-01-2025 Anion gap [Moles/Vol] 9 mmol/L 5- [facility] Automated lymphocyte count a s percentage of total leukocytesOrdered By: Alonso Marte on 05-01-2025 Lymphocytes/100 WBC Auto (Unsp spec) 25.5 % - [facility] BUN/creatinine ratioOrdered By: Alonso Marte on 05-01-2025 Urea nitrogen/Creatinine [Mass ratio] 18.3 mg/mg 09-10 [facility] Basic Metabolic Profile (BMP )on 05-01-2025 BUN/CRE 18.3 RATIO Normal 09-10 [facility] Comment on above: Performed By: #### L 100.0100, L500.2500 ####[facility] [address] [place], [address] Calcium [Mass/Vol] 8.7 mg/dL Normal 7.6-11.0 [facility] Comment on above: Performed By: #### L 100.0100, L500.2500 ####[facility] [address] [place], [address] Chloride [Moles/Vol] 104 mmol/L Normal 98-108 [facility] Comment on above: Performed By: #### L 100.0100, L500.2500 ####[facility] [address] [place], [address] CO2 [Moles/Vol] 24.5 mmol/L Normal 21.0-32.0 [facility] Comment on above: Performed By: #### L 100.0100, L500.2500 ####[facility] [address] [place], [address] Creatinine [Mass/Vol] 0.88 mg/dL Normal 0.70-1.20 [facility] Comment on above: Performed By: #### L 100.0100, L500.2500 ####[facility] [address] [place], [address] ECRCL 55.61 ml/min Normal 50-250 [facility] Comment on above: Performed By: #### L 100.0100, L500.2500 ####[facility] [address] [place], [address] GAP 9 Normal 5-15 [facility] Comment on above: Performed By: #### L 100.0100, L500.2500 ####[facility] [address] [place], [address] GFR/1.73 sq M.predicted among non-blacks MDRD (S/P/Bld) [Vol rate/Area] 70 mL/min/{1.73_m2} Normal >60 [facility] Comment on above: Result Comment: mL/m in/1.73m2 CKD-EPI Creatinine Equation (2020) Performed By: #### L 100.0100, L500.2500 ####[facility] [address] [place], [address] Glucose [Mass/Vol] 148 mg/dL High 70-99 [facility] Comment on above: Performed By: #### L 100.0100, L500.2500 ####[facility] [address] [place], [address] Potassium [Moles/Vol] 4.1 mmol/L Normal 3.3-5.1 [facility] Comment on above: Performed By: #### L 100.0100, L500.2500 ####[facility] [address] [place], [address] Sodium [Moles/Vol] 138 mmol/L Normal 133-145 [facility] Comment on above: Performed By: #### L 100.0100, L500.2500 ####[facility] [address] [place], [address] Urea nitrogen [Mass/Vol] 16 mg/dL Normal 4-19 [facility] Comment on above: Performed By: #### L 100.0100, L500.2500 ####[facility] [address] [place], [address] Basophil percentageOrdered B y: Alonso Estuardo on 05-01-2025 Basophils/100 WBC (Bld) 0.6 % 0-[address] [facility] Bedside Glucoseon 05-01-2025 FINGERSTICK GLU 231 mg/dL High 74-106 [facility] Comment on above: Result Comment: TORRES GEMENT OF PATIENT CARE PER NURSING PROTOCOL Performed By: #### L 501.080 ####[facility] [address] [place], [address] FINGERSTICK GLU 213 mg/dL High 74-106 [facility] Comment on above: Result Comment: TORRES GEMENT OF PATIENT CARE PER NURSING PROTOCOL Performed By: #### L 501.080 ####[facility] [address] [place], [address] FINGERSTICK GLU 136 mg/dL High 74-106 [facility] Comment on above: Result Comment: TORRES FRANKLIN OF PATIENT CARE PER NURSING PROTOCOL Performed By: #### L 501.080 ####[facility] [address] [place], [address] CBC W/Diff, Automatedon 06- 0-2024 Absolute Lymph 1.34 X10 3/uL Normal 0.83-4.51 [facility] Comment on above: Performed By: #### L 100.0100, L500.2500 ####[facility] [address] [place], [address] Absolute Neut 3.0 X10 3/uL Normal 2.0-7.7 [facility] Comment on above: Performed By: #### L 100.0100, L500.2500 ####[facility] [address] [place], [address] Basophils/100 WBC (Bld) 0.6 % Normal 0-[address] [facility] Comment on above: Performed By: #### L 100.0100, L500.2500 ####[facility] [address] [place], [address] Eosinophils/100 WBC (Bld) 4.0 % Normal 0-5 [facility] Comment on above: Performed By: #### L 100.0100, L500.2500 ####[facility] [address] [place], [address] Erythrocyte distribution width (RBC) [Ratio] 13.4 % Normal 11.6-14.6 [facility] Comment on above: Performed By: #### L 100.0100, L500.2500 ####[facility] [address] [place], [address] Hematocrit (Bld) [Volume fraction] 28.6 % Low 37-47 [facility] Comment on above: Performed By: #### L 100.0100, L500.2500 ####[facility] [address] [place], [address] Hemoglobin (Bld) [Mass/Vol] 9.5 g/dL Low 12.0-15.0 [facility] Comment on above: Performed By: #### L 100.0100, L500.2500 ####[facility] [address] [place], [address] IG% 0.400 Normal 0.0-0.9 [facility] Comment on above: Result Comment: IG% - Immature Granulocytes (promyelocytes, myelocytes andmetamyelocytes) > 1% indicates that a LEFT SHIFT is Present. Performed By: #### L 100.0100, L500.2500 ####[facility] [address] [place], [address] Lymphocytes/100 WBC (Bld) 25.5 % Normal 19-41 [facility] Comment on above: Performed By: #### L 100.0100, L500.2500 ####[facility] [address] [place], [address] MCH (RBC) [Entitic mass] 31.1 pg Normal 27.0-32.0 [facility] Comment on above: Performed By: #### L 100.0100, L500.2500 ####[facility] [address] [place], [address] MCHC (RBC) [Mass/Vol] 33.2 g/dL Normal 32-36 [facility] Comment on above: Performed By: #### L 100.0100, L500.2500 ####[facility] [address] [place], [address] MCV (RBC) [Entitic vol] 93.8 fL Normal 81-[address] [facility] Comment on above: Performed By: #### L 100.0100, L500.2500 ####[facility] [address] [place], [address] Monocytes/100 WBC (Bld) 12.0 % High 0-[address] [facility] Comment on above: Performed By: #### L 100.0100, L500.2500 ####[facility] [address] [place], [address] Neutrophils/100 WBC (Bld) 57.5 % Normal 47-70 [facility] Comment on above: Performed By: #### L 100.0100, L500.2500 ####[facility] [address] [place], [address] Nucleated RBC (Bld) [#/Vol] 0 10*3/uL Normal 0-5 [facility] Comment on above: Performed By: #### L 100.0100, L500.2500 ####[facility] [address] [place], [address] Platelet mean volume (Bld) [Entitic vol] 10.2 fL Normal 6.2-12.0 [facility] Comment on above: Performed By: #### L 100.0100, L500.2500 ####[facility] [address] [place], [address] Platelets (Bld) [#/Vol] 207 10*3/uL Normal 150-450 [facility] Comment on above: Performed By: #### L 100.0100, L500.2500 ####[facility] [address] [place], [address] RBC (Bld) [#/Vol] 3.05 10*6/uL Low 4.2-5.4 [facility] Comment on above: Performed By: #### L 100.0100, L500.2500 ####[facility] [address] [place], [address] RDW SD 45.9 fl High 35.1-43.9 [facility] Comment on above: Performed By: #### L 100.0100, L500.2500 ####[facility] [address] [place], [address] WBC (Bld) [#/Vol] 5.3 10*3/uL Normal 4.4-11.0 [facility] Comment on above: Performed By: #### L 100.0100, L500.2500 ####[facility] [address] [place], [address] Carbon dioxide, total [Moles /volume] in Central venous bloodOrdered By: Alonso Marte on 05-01-2025 CO2 [Moles/Vol] 24.5 mmol/L 21.0-32.0 [facility] Chloride assayOrdered By: Rm Marte on 05-01-2025 Chloride [Moles/Vol] 104 mmol/L 98-108 [facility] Eosinophil percentageOrdered By: Alonso Marte on 05-01-2025 Eosinophils/100 WBC (Bld) 4.0 % 0-5 [facility] Erythrocyte distribution wid th ratioOrdered By: Alonso Marte on 05-01-2025 Erythrocyte distribution width (RBC) [Ratio] 13.4 % 11.6-14.6 [facility] Erythrocyte distribution wid th standard deviationOrdered By: Alonso Marte on 05-01-2025 Erythrocyte distribution width (RBC) [Ratio] 45.9 fl High 35.1-43.9 [facility] Glomerular filtration rate ( GFR) estimation/1.73 sq m using serum, plasma, or whole bOrdered By: Alonso Marte on 05-01-2025 GFR/1.73 sq M.predicted among non-blacks MDRD (S/P/Bld) [Vol rate/Area] 70 mL/min/{1.73_m2} >60 [facility] Comment on above: mL/min/1.73m2 CKD-EP I Creatinine Equation (2020) Hematocrit Auto (Bld) [Volum e fraction]Ordered By: Alonso Marte on 05-01-2025 Hematocrit (Bld) [Volume fraction] 28.6 % Low 37-47 [facility] Hemoglobin measurementOrdere d By: Alonso Marte on 05-01-2025 Hemoglobin (Bld) [Mass/Vol] 9.5 g/dL Low 12.0-15.0 [facility] Immature granulocytes/100 WB C Auto (Bld)Ordered By: Alonso Marte on 05-01-2025 Immature granulocytes/100 WBC (Bld) 0.400 % 0.0-0.9 [facility] Comment on above: IG% - Immature Granu locytes (promyelocytes, myelocytes and metamyelocytes) > 1% indicates that a LEFT SHIFT is Present. MCV (mean corpuscular volume ) determinationOrdered By: Alonso Marte on 05-01-2025 MCV (RBC) [Entitic vol] 93.8 fL 81-99 [facility] Mean corpuscular hemoglobin (MCH) determinationOrdered By: Alonso Marte on 05-01-2025 MCH (RBC) [Entitic mass] 31.1 pg 27.0-32.0 [facility] Mean corpuscular hemoglobin concentration (MCHC) determinationOrdered By: Alonso Marte on 05-01-2025 MCHC (RBC) [Mass/Vol] 33.2 g/dL 32-36 [facility] Mean platelet volume determi nationOrdered By: Alonso Marte on 05-01-2025 Platelet mean volume (Bld) [Entitic vol] 10.2 fL 6.2-12.0 [facility] Monocyte percentageOrdered B y: Alonso Marte on 05-01-2025 Monocytes/100 WBC (Bld) 12.0 % High 0-[address] [facility] Neutrophil percentageOrdered By: Alonso Marte on 05-01-2025 Neutrophils/100 WBC (Bld) 57.5 % 47-70 [facility] Nucleated red blood cell per centageOrdered By: Alonso Marte on 05-01-2025 Nucleated RBC/100 WBC (Bld) [Ratio] 0 % 0-5 [facility] Platelet countOrdered By: Rm Marte on 05-01-2025 Platelets (Bld) [#/Vol] 207 10*3/uL 150-450 [facility] Potassium measurement (mass/ volume)Ordered By: Alonso Marte on 05-01-2025 Potassium (Unsp spec) [Mass/Vol] 4.1 mmol/L 3.3-5.1 [facility] RBC Auto (Bld) [#/Vol]Ordere d By: Alonso Conteok on 05-01-2025 RBC (Bld) [#/Vol] 3.05 10*6/uL Low 4.2-5.4 [facility] Serum creatinine measurement (mass/volume)Ordered By: Alonso Marte on 05-01-2025 Creatinine [Mass/Vol] 0.88 mg/dL 0.70-1.20 [facility] Serum glucose measurement (m ass/volume)Ordered By: Alonso Marte on 05-01-2025 Glucose [Mass/Vol] 148 mg/dL High 70-99 [facility] Serum or plasma calcium loco urement (mass/volume)Ordered By: Alonso Marte on 05-01-2025 Calcium [Mass/Vol] 8.7 mg/dL 7.6-11.0 [facility] Serum or plasma urea nitroge n measurement (mass/volume)Ordered By: Alonso Marte on 05-01-2025 Urea nitrogen [Mass/Vol] 16 mg/dL 4-19 [facility] Sodium levelOrdered By: Alonso Marte on 05-01-2025 Sodium [Moles/Vol] 138 mmol/L 133-145 [facility] White blood cell (WBC) count Ordered By: Alonso Marte on 05-01-2025 WBC (Bld) [#/Vol] 5.3 10*3/uL 4.4-11.0 [facility] Basic Metabolic Profile (BMP )on 04-30-2025 BUN/CRE 16.8 RATIO Normal 10-20 [facility] Comment on above: Performed By: #### L 500.2500, L100.0100 ####[facility] [address] [place], [address] Calcium [Mass/Vol] 8.7 mg/dL Normal 7.6-11.0 [facility] Comment on above: Performed By: #### L 500.2500, L100.0100 ####[facility] [address] [place], [address] Chloride [Moles/Vol] 105 mmol/L Normal 98-108 [facility] Comment on above: Performed By: #### L 500.2500, L100.0100 ####[facility] [address] [place], [address] CO2 [Moles/Vol] 25.1 mmol/L Normal 21.0-32.0 [facility] Comment on above: Performed By: #### L 500.2500, L100.0100 ####[facility] [address] [place], [address] Creatinine [Mass/Vol] 0.94 mg/dL Normal 0.70-1.20 [facility] Comment on above: Performed By: #### L 500.2500, L100.0100 ####[facility] [address] [place], [address] ECRCL 52.06 ml/min Normal 50-250 [facility] Comment on above: Performed By: #### L 500.2500, L100.0100 ####[facility] [address] [place], [address] GAP 9 Normal 5-15 [facility] Comment on above: Performed By: #### L 500.2500, L100.0100 ####[facility] [address] [place], [address] GFR/1.73 sq M.predicted among non-blacks MDRD (S/P/Bld) [Vol rate/Area] 65 mL/min/{1.73_m2} Normal >60 [facility] Comment on above: Result Comment: mL/m in/1.73m2 CKD-EPI Creatinine Equation (2020) Performed By: #### L 500.2500, L100.0100 ####[facility] [address] [place], [address] Glucose [Mass/Vol] 142 mg/dL High 70-99 [facility] Comment on above: Performed By: #### L 500.2500, L100.0100 ####[facility] [address] [place], [address] Potassium [Moles/Vol] 4.1 mmol/L Normal 3.3-5.1 [facility] Comment on above: Result Comment: Hemo lysis present, Results??could be affected.?? Performed By: #### L 500.2500, L100.0100 ####[facility] [address] [place], [address] Sodium [Moles/Vol] 139 mmol/L Normal 133-145 [facility] Comment on above: Performed By: #### L 500.2500, L100.0100 ####[facility] [address] [place], [address] Urea nitrogen [Mass/Vol] 16 mg/dL Normal 4-19 [facility] Comment on above: Performed By: #### L 500.2500, L100.0100 ####[facility] [address] [place], [address] Bedside Glucoseon --2024 FINGERSTICK GLU 188 mg/dL High 74-106 [facility] Comment on above: Result Comment: TORRES GEMENT OF PATIENT CARE PER NURSING PROTOCOL Performed By: #### L 501.080 ####[facility] [address] [place], [address] FINGERSTICK GLU 132 mg/dL High 74-106 [facility] Comment on above: Result Comment: TORRES GEMENT OF PATIENT CARE PER NURSING PROTOCOL Performed By: #### L 501.080 ####[facility] [address] [place], [address] CBC W/Diff, Automatedon 06-0 Absolute Lymph 1.82 X10 3/uL Normal 0.83-4.51 [facility] Comment on above: Performed By: #### L 500.2500, L100.0100 ####[facility] [address] [place], [address] Absolute Neut 3.6 X10 3/uL Normal 2.0-7.7 [facility] Comment on above: Performed By: #### L 500.2500, L100.0100 ####[facility] [address] [place], [address] Basophils/100 WBC (Bld) 0.5 % Normal 0-[address] [facility] Comment on above: Performed By: #### L 500.2500, L100.0100 ####[facility] [address] [place], [address] Eosinophils/100 WBC (Bld) 4.4 % Normal 0-5 [facility] Comment on above: Performed By: #### L 500.2500, L100.0100 ####[facility] [address] [place], [address] Erythrocyte distribution width (RBC) [Ratio] 13.3 % Normal 11.6-14.6 [facility] Comment on above: Performed By: #### L 500.2500, L100.0100 ####[facility] [address] [place], [address] Hematocrit (Bld) [Volume fraction] 29.9 % Low 37-47 [facility] Comment on above: Performed By: #### L 500.2500, L100.0100 ####[facility] [address] [place], [address] Hemoglobin (Bld) [Mass/Vol] 9.8 g/dL Low 12.0-15.0 [facility] Comment on above: Performed By: #### L 500.2500, L100.0100 ####[facility] [address] [place], [address] IG% 0.500 Normal 0.0-0.9 [facility] Comment on above: Result Comment: IG% - Immature Granulocytes (promyelocytes, myelocytes andmetamyelocytes) > 1% indicates that a LEFT SHIFT is Present. Performed By: #### L 500.2500, L100.0100 ####[facility] [address] [place], [address] Lymphocytes/100 WBC (Bld) 28.3 % Normal 19-41 [facility] Comment on above: Performed By: #### L 500.2500, L100.0100 ####[facility] [address] [place], [address] MCH (RBC) [Entitic mass] 31.0 pg Normal 27.0-32.0 [facility] Comment on above: Performed By: #### L 500.2500, L100.0100 ####[facility] [address] [place], [address] MCHC (RBC) [Mass/Vol] 32.8 g/dL Normal 32-36 [facility] Comment on above: Performed By: #### L 500.2500, L100.0100 ####[facility] [address] [place], [address] MCV (RBC) [Entitic vol] 94.6 fL Normal 81-99 [facility] Comment on above: Performed By: #### L 500.2500, L100.0100 ####[facility] [address] [place], [address] Monocytes/100 WBC (Bld) 10.9 % High 0-[address] [facility] Comment on above: Performed By: #### L 500.2500, L100.0100 ####[facility] [address] [place], [address] Neutrophils/100 WBC (Bld) 55.4 % Normal 47-70 [facility] Comment on above: Performed By: #### L 500.2500, L100.0100 ####[facility] [address] [place], [address] Nucleated RBC (Bld) [#/Vol] 0 10*3/uL Normal 0-5 [facility] Comment on above: Performed By: #### L 500.2500, L100.0100 ####[facility] [address] [place], [address] Platelet mean volume (Bld) [Entitic vol] 10.4 fL Normal 6.2-12.0 [facility] Comment on above: Performed By: #### L 500.2500, L100.0100 ####[facility] [address] [place], [address] Platelets (Bld) [#/Vol] 212 10*3/uL Normal 150-450 [facility] Comment on above: Performed By: #### L 500.2500, L100.0100 ####[facility] [address] [place], [address] RBC (Bld) [#/Vol] 3.16 10*6/uL Low 4.2-5.4 [facility] Comment on above: Performed By: #### L 500.2500, L100.0100 ####[facility] [address] [place], [address] RDW SD 46.4 fl High 35.1-43.9 [facility] Comment on above: Performed By: #### L 500.2500, L100.0100 ####[facility] [address] [place], [address] WBC (Bld) [#/Vol] 6.4 10*3/uL Normal 4.4-11.0 [facility] Comment on above: Performed By: #### L 500.2500, L100.0100 ####[facility] [address] [place], [address] Basic Metabolic Profile (BMP )on 04-29-2025 BUN/CRE 15.0 RATIO Normal 10-20 [facility] Comment on above: Performed By: #### L 500.2500, L100.0100 ####[facility] [address] [place], [address] Calcium [Mass/Vol] 8.8 mg/dL Normal 7.6-11.0 [facility] Comment on above: Performed By: #### L 500.2500, L100.0100 ####[facility] [address] [place], [address] Chloride [Moles/Vol] 108 mmol/L Normal 98-108 [facility] Comment on above: Performed By: #### L 500.2500, L100.0100 ####[facility] [address] [place], [address] CO2 [Moles/Vol] 26.7 mmol/L Normal 21.0-32.0 [facility] Comment on above: Performed By: #### L 500.2500, L100.0100 ####[facility] [address] [place], [address] Creatinine [Mass/Vol] 0.94 mg/dL Normal 0.70-1.20 [facility] Comment on above: Performed By: #### L 500.2500, L100.0100 ####[facility] [address] [place], [address] ECRCL 52.06 ml/min Normal 50-250 [facility] Comment on above: Performed By: #### L 500.2500, L100.0100 ####[facility] [id number] [place], [address] GAP 7 Normal 5-15 [facility] Comment on above: Performed By: #### L 500.2500, L100.0100 ####[facility] [address] [place], [address] GFR/1.73 sq M.predicted among non-blacks MDRD (S/P/Bld) [Vol rate/Area] 64 mL/min/{1.73_m2} Normal >60 [facility] Comment on above: Result Comment: mL/m in/1.73m2 CKD-EPI Creatinine Equation (2020) Performed By: #### L 500.2500, L100.0100 ####[facility] [address] [place], [address] Glucose [Mass/Vol] 138 mg/dL High 70-99 [facility] Comment on above: Performed By: #### L 500.2500, L100.0100 ####[facility] [address] [place], [address] Potassium [Moles/Vol] 4.4 mmol/L Normal 3.3-5.1 [facility] [facility] Comment on above: Performed By: #### L 500.2500, L100.0100 ####[facility] [address] [place], [address] Sodium [Moles/Vol] 142 mmol/L Normal 133-145 [facility] Comment on above: Performed By: #### L 500.2500, L100.0100 ####[facility] [address] [place], [address] Urea nitrogen [Mass/Vol] 14 mg/dL Normal 4-19 [facility] Comment on above: Performed By: #### L 500.2500, L100.0100 ####[facility] [address] [place], [address] Bedside Glucoseon 04-29-2025 FINGERSTICK GLU 132 mg/dL High 74-106 [facility] Comment on above: Result Comment: TORRES RIGOBERTO OF PATIENT CARE PER NURSING PROTOCOL Performed By: #### L 501.080 ####[facility] [address] [place], [address] CBC W/Diff, Automatedon 06-0 8-2024 Absolute Lymph 1.45 X10 3/uL Normal 0.83-4.51 [facility] Comment on above: Performed By: #### L 500.2500, L100.0100 ####[facility] [address] [place], [address] Absolute Neut 3.3 X10 3/uL Normal 2.0-7.7 [facility] Comment on above: Performed By: #### L 500.2500, L100.0100 ####[facility] [address] [place], [address] Basophils/100 WBC (Bld) 0.5 % Normal 0-[address] [facility] Comment on above: Performed By: #### L 500.2500, L100.0100 ####[facility] [address] [place], [address] Eosinophils/100 WBC (Bld) 4.5 % Normal 0-5 [facility] Comment on above: Performed By: #### L 500.2500, L100.0100 ####[facility] [address] [place], [address] Erythrocyte distribution width (RBC) [Ratio] 13.5 % Normal 11.6-14.6 [facility] Comment on above: Performed By: #### L 500.2500, L100.0100 ####[facility] [address] [place], [address] Hematocrit (Bld) [Volume fraction] 28.7 % Low 37-47 [facility] Comment on above: Performed By: #### L 500.2500, L100.0100 ####[facility] [address] [place], [address] Hemoglobin (Bld) [Mass/Vol] 9.5 g/dL Low 12.0-15.0 [facility] Comment on above: Performed By: #### L 500.2500, L100.0100 ####[facility] [address] [place], [address] IG% 0.300 Normal 0.0-0.9 [facility] Comment on above: Result Comment: IG% - Immature Granulocytes (promyelocytes, myelocytes andmetamyelocytes) > 1% indicates that a LEFT SHIFT is Present. Performed By: #### L 500.2500, L100.0100 ####[facility] [address] [place], [address] Lymphocytes/100 WBC (Bld) 25.3 % Normal 19-41 [facility] Comment on above: Performed By: #### L 500.2500, L100.0100 ####[facility] [address] [place], [address] MCH (RBC) [Entitic mass] 31.5 pg Normal 27.0-32.0 [facility] Comment on above: Performed By: #### L 500.2500, L100.0100 ####[facility] [address] [place], [address] MCHC (RBC) [Mass/Vol] 33.1 g/dL Normal 32-36 [facility] Comment on above: Performed By: #### L 500.2500, L100.0100 ####[facility] [address] [place], [address] MCV (RBC) [Entitic vol] 95.0 fL Normal 81-[address] [facility] Comment on above: Performed By: #### L 500.2500, L100.0100 ####[facility] [address] [place], [address] Monocytes/100 WBC (Bld) 11.2 % High 0-[address] [facility] Comment on above: Performed By: #### L 500.2500, L100.0100 ####[facility] [address] [place], [address] Neutrophils/100 WBC (Bld) 58.2 % Normal 47-70 [facility] Comment on above: Performed By: #### L 500.2500, L100.0100 ####[facility] [address] [place], [address] Nucleated RBC (Bld) [#/Vol] 0 10*3/uL Normal 0-5 [facility] Comment on above: Performed By: #### L 500.2500, L100.0100 ####[facility] [address] [place], [address] Platelet mean volume (Bld) [Entitic vol] 9.9 fL Normal 6.2-12.0 [facility] Comment on above: Performed By: #### L 500.2500, L100.0100 ####[facility] [address] [place], [address] Platelets (Bld) [#/Vol] 193 10*3/uL Normal 150-450 [facility] Comment on above: Performed By: #### L 500.2500, L100.0100 ####[facility] [address] [place], [address] RBC (Bld) [#/Vol] 3.02 10*6/uL Low 4.2-5.4 [facility] Comment on above: Performed By: #### L 500.2500, L100.0100 ####[facility] [address] [place], [address] RDW SD 46.9 fl High 35.1-43.9 [facility] Comment on above: Performed By: #### L 500.2500, L100.0100 ####[facility] [address] [place], [address] WBC (Bld) [#/Vol] 5.7 10*3/uL Normal 4.4-11.0 [facility] Comment on above: Performed By: #### L 500.2500, L100.0100 ####[facility] [address] [place], [address] Basic Metabolic Profile (BMP )on 04-28-2025 BUN/CRE 15.9 RATIO Normal 10-20 [facility] Comment on above: Performed By: #### L 100.0100, L500.2500 ####[facility] [address] [place], [address] Calcium [Mass/Vol] 8.7 mg/dL Normal 7.6-11.0 [facility] Comment on above: Performed By: #### L 100.0100, L500.2500 ####[facility] [address] [place], [address] Chloride [Moles/Vol] 105 mmol/L Normal 98-108 [facility] Comment on above: Performed By: #### L 100.0100, L500.2500 ####[facility] [address] [place], [address] CO2 [Moles/Vol] 25.9 mmol/L Normal 21.0-32.0 [facility] Comment on above: Performed By: #### L 100.0100, L500.2500 ####[facility] [address] [place], [address] Creatinine [Mass/Vol] 0.97 mg/dL Normal 0.70-1.20 [facility] Comment on above: Performed By: #### L 100.0100, L500.2500 ####[facility] [address] [place], [address] ECRCL 50.45 ml/min Normal 50-250 [facility] Comment on above: Performed By: #### L 100.0100, L500.2500 ####[facility] [address] [place], [address] GAP 9 Normal 5-15 [facility] Comment on above: Performed By: #### L 100.0100, L500.2500 ####[facility] [address] [place], [address] GFR/1.73 sq M.predicted among non-blacks MDRD (S/P/Bld) [Vol rate/Area] 62 mL/min/{1.73_m2} Normal >60 [facility] Comment on above: Result Comment: mL/m in/1.73m2 CKD-EPI Creatinine Equation (2020) Performed By: #### L 100.0100, L500.2500 ####[facility] [address] [place], [address] Glucose [Mass/Vol] 140 mg/dL High 70-99 [facility] Comment on above: Performed By: #### L 100.0100, L500.2500 ####[facility] [address] [place], [address] Potassium [Moles/Vol] 3.8 mmol/L Normal 3.3-5.1 [facility] Comment on above: Performed By: #### L 100.0100, L500.2500 ####[facility] [address] [place], [address] Sodium [Moles/Vol] 140 mmol/L Normal 133-145 [facility] Comment on above: Performed By: #### L 100.0100, L500.2500 ####[facility] [address] [place], [address] Urea nitrogen [Mass/Vol] 15 mg/dL Normal 4-19 [facility] Comment on above: Performed By: #### L 100.0100, L500.2500 ####[facility] [address] [place], [address] Bedside Glucoseon 04-28-2025 FINGERSTICK GLU 155 mg/dL High 74-106 [facility] Comment on above: Result Comment: TORRES GEMENT OF PATIENT CARE PER NURSING PROTOCOL Performed By: #### L 501.080 ####[facility] [address] [place], [address] FINGERSTICK GLU 120 mg/dL High 74-106 [facility] Comment on above: Result Comment: TORRES GEMENT OF PATIENT CARE PER NURSING PROTOCOL Performed By: #### L 501.080 ####[facility] [address] [place], [address] CBC W/Diff, Automatedon Absolute Lymph 1.57 X10 3/uL Normal 0.83-4.51 [facility] Comment on above: Performed By: #### L 100.0100, L500.2500 ####[facility] [address] [place], [address] Absolute Neut 3.1 X10 3/uL Normal 2.0-7.7 [facility] Comment on above: Performed By: #### L 100.0100, L500.2500 ####[facility] [address] [place], [address] Basophils/100 WBC (Bld) 0.5 % Normal 0-[address] [facility] Comment on above: Performed By: #### L 100.0100, L500.2500 ####[facility] [address] [place], [address] Eosinophils/100 WBC (Bld) 3.7 % Normal 0-5 [facility] Comment on above: Performed By: #### L 100.0100, L500.2500 ####[facility] [address] [place], [address] Erythrocyte distribution width (RBC) [Ratio] 13.3 % Normal 11.6-14.6 [facility] Comment on above: Performed By: #### L 100.0100, L500.2500 ####[facility] [address] [place], [address] Hematocrit (Bld) [Volume fraction] 27.9 % Low 37-47 [facility] Comment on above: Performed By: #### L 100.0100, L500.2500 ####[facility] [address] [place], [address] Hemoglobin (Bld) [Mass/Vol] 9.1 g/dL Low 12.0-15.0 [facility] Comment on above: Performed By: #### L 100.0100, L500.2500 ####[facility] [address] [place], [address] IG% 0.200 Normal 0.0-0.9 [facility] Comment on above: Result Comment: IG% - Immature Granulocytes (promyelocytes, myelocytes andmetamyelocytes) > 1% indicates that a LEFT SHIFT is Present. Performed By: #### L 100.0100, L500.2500 ####[facility] [address] [place], [address] Lymphocytes/100 WBC (Bld) 28.7 % Normal 19-41 [facility] Comment on above: Performed By: #### L 100.0100, L500.2500 ####[facility] [address] [place], [address] MCH (RBC) [Entitic mass] 30.8 pg Normal 27.0-32.0 [facility] Comment on above: Performed By: #### L 100.0100, L500.2500 ####[facility] [address] [place], [address] MCHC (RBC) [Mass/Vol] 32.6 g/dL Normal 32-36 [facility] Comment on above: Performed By: #### L 100.0100, L500.2500 ####[facility] [address] [place], [address] MCV (RBC) [Entitic vol] 94.6 fL Normal 81-[address] [facility] Comment on above: Performed By: #### L 100.0100, L500.2500 ####[facility] [address] [place], [address] Monocytes/100 WBC (Bld) 10.1 % High 0-10 [facility] Comment on above: Performed By: #### L 100.0100, L500.2500 ####[facility] [address] [place], [address] Neutrophils/100 WBC (Bld) 56.8 % Normal 47-70 [facility] Comment on above: Performed By: #### L 100.0100, L500.2500 ####[facility] [address] [place], [address] Nucleated RBC (Bld) [#/Vol] 0 10*3/uL Normal 0-5 [facility] Comment on above: Performed By: #### L 100.0100, L500.2500 ####[facility] [address] [place], [address] Platelet mean volume (Bld) [Entitic vol] 10.3 fL Normal 6.2-12.0 [facility] Comment on above: Performed By: #### L 100.0100, L500.2500 ####[facility] [address] [place], [address] Platelets (Bld) [#/Vol] 199 10*3/uL Normal 150-450 [facility] Comment on above: Performed By: #### L 100.0100, L500.2500 ####[facility] [address] [place], [address] RBC (Bld) [#/Vol] 2.95 10*6/uL Low 4.2-5.4 [facility] Comment on above: Performed By: #### L 100.0100, L500.2500 ####[facility] [address] [place], [address] RDW SD 45.7 fl High 35.1-43.9 [facility] Comment on above: Performed By: #### L 100.0100, L500.2500 ####[facility] [address] [place], [address] WBC (Bld) [#/Vol] 5.5 10*3/uL Normal 4.4-11.0 [facility] Comment on above: Performed By: #### L 100.0100, L500.2500 ####[facility] [address] [place], [address] Basic Metabolic Profile (BMP )on 04-27-2025 BUN/CRE 12.8 RATIO Normal 10-20 [facility] Comment on above: Performed By: #### L 500.2500, L100.0100 ####[facility] [address] [place], [address] Calcium [Mass/Vol] 8.7 mg/dL Normal 7.6-11.0 [facility] Comment on above: Performed By: #### L 500.2500, L100.0100 ####[facility] [address] [place], [address] Chloride [Moles/Vol] 107 mmol/L Normal 98-108 [facility] Comment on above: Performed By: #### L 500.2500, L100.0100 ####[facility] [address] [place], [address] CO2 [Moles/Vol] 25.1 mmol/L Normal 21.0-32.0 [facility] Comment on above: Performed By: #### L 500.2500, L100.0100 ####[facility] [address] [place], [address] Creatinine [Mass/Vol] 0.95 mg/dL Normal 0.70-1.20 [facility] Comment on above: Performed By: #### L 500.2500, L100.0100 ####[facility] [address] [place], [address] ECRCL 51.52 ml/min Normal 50-250 [facility] Comment on above: Performed By: #### L 500.2500, L100.0100 ####[facility] [address] [place], [address] GAP 9 Normal 5-15 [facility] Comment on above: Performed By: #### L 500.2500, L100.0100 ####[facility] [address] [place], [address] GFR/1.73 sq M.predicted among non-blacks MDRD (S/P/Bld) [Vol rate/Area] 63 mL/min/{1.73_m2} Normal >60 [facility] Comment on above: Result Comment: mL/m in/1.73m2 CKD-EPI Creatinine Equation (2020) Performed By: #### L 500.2500, L100.0100 ####[facility] [address] [place], [address] Glucose [Mass/Vol] 139 mg/dL High 70-99 [facility] Comment on above: Performed By: #### L 500.2500, L100.0100 ####[facility] [address] [place], [address] Potassium [Moles/Vol] 3.9 mmol/L Normal 3.3-5.1 [facility] Comment on above: Performed By: #### L 500.2500, L100.0100 ####[facility] [address] [place], [address] Sodium [Moles/Vol] 141 mmol/L Normal 133-145 [facility] Comment on above: Performed By: #### L 500.2500, L100.0100 ####[facility] [address] [place], [address] Urea nitrogen [Mass/Vol] 12 mg/dL Normal 4-19 [facility] Comment on above: Performed By: #### L 500.2500, L100.0100 ####[facility] [address] [place], [address] Bedside Glucoseon --2024 FINGERSTICK GLU 134 mg/dL High 74-106 [facility] Comment on above: Result Comment: TORRES GEMENT OF PATIENT CARE PER NURSING PROTOCOL Performed By: #### L 501.080 ####[facility] [address] [place], [address] FINGERSTICK GLU 158 mg/dL High 74-106 [facility] Comment on above: Result Comment: TORRES GEMENT OF PATIENT CARE PER NURSING PROTOCOL Performed By: #### L 501.080 ####[facility] [address] [place], [address] CBC W/Diff, Automatedon 06-0 Absolute Lymph 1.65 X10 3/uL Normal 0.83-4.51 [facility] Comment on above: Performed By: #### L 500.2500, L100.0100 ####[facility] [address] [place], [address] Absolute Neut 2.8 X10 3/uL Normal 2.0-7.7 [facility] Comment on above: Performed By: #### L 500.2500, L100.0100 ####[facility] [address] [place], [address] Basophils/100 WBC (Bld) 0.4 % Normal 0-[address] [facility] Comment on above: Performed By: #### L 500.2500, L100.0100 ####[facility] [address] [place], [address] Eosinophils/100 WBC (Bld) 3.2 % Normal 0-5 [facility] Comment on above: Performed By: #### L 500.2500, L100.0100 ####[facility] [address] [place], [address] Erythrocyte distribution width (RBC) [Ratio] 13.4 % Normal 11.6-14.6 [facility] Comment on above: Performed By: #### L 500.2500, L100.0100 ####[facility] [address] [place], [address] Hematocrit (Bld) [Volume fraction] 27.8 % Low 37-47 [facility] Comment on above: Performed By: #### L 500.2500, L100.0100 ####[facility] [address] [place], [address] Hemoglobin (Bld) [Mass/Vol] 9.0 g/dL Low 12.0-15.0 [facility] Comment on above: Performed By: #### L 500.2500, L100.0100 ####[facility] [address] [place], [address] IG% 0.400 Normal 0.0-0.9 [facility] Comment on above: Result Comment: IG% - Immature Granulocytes (promyelocytes, myelocytes andmetamyelocytes) > 1% indicates that a LEFT SHIFT is Present. Performed By: #### L 500.2500, L100.0100 ####[facility] [address] [place], [address] Lymphocytes/100 WBC (Bld) 31.1 % Normal 19-41 [facility] Comment on above: Performed By: #### L 500.2500, L100.0100 ####[facility] [address] [place], [address] MCH (RBC) [Entitic mass] 30.8 pg Normal 27.0-32.0 [facility] Comment on above: Performed By: #### L 500.2500, L100.0100 ####[facility] [address] [place], [address] MCHC (RBC) [Mass/Vol] 32.4 g/dL Normal 32-36 [facility] Comment on above: Performed By: #### L 500.2500, L100.0100 ####[facility] [address] [place], [address] MCV (RBC) [Entitic vol] 95.2 fL Normal 81-99 [facility] Comment on above: Performed By: #### L 500.2500, L100.0100 ####[facility] [address] [place], [address] Monocytes/100 WBC (Bld) 12.2 % High 0-10 [facility] Comment on above: Performed By: #### L 500.2500, L100.0100 ####[facility] [address] [place], [address] Neutrophils/100 WBC (Bld) 52.7 % Normal 47-70 [facility] Comment on above: Performed By: #### L 500.2500, L100.0100 ####[facility] [address] [place], [address] Nucleated RBC (Bld) [#/Vol] 0 10*3/uL Normal 0-5 [facility] Comment on above: Performed By: #### L 500.2500, L100.0100 ####[facility] [address] [place], [address] Platelet mean volume (Bld) [Entitic vol] 9.9 fL Normal 6.2-12.0 [facility] Comment on above: Performed By: #### L 500.2500, L100.0100 ####[facility] [address] [place], [address] Platelets (Bld) [#/Vol] 202 10*3/uL Normal 150-450 [facility] Comment on above: Performed By: #### L 500.2500, L100.0100 ####[facility] [address] [place], [address] RBC (Bld) [#/Vol] 2.92 10*6/uL Low 4.2-5.4 [facility] Comment on above: Performed By: #### L 500.2500, L100.0100 ####[facility] [address] [place], [address] RDW SD 46.8 fl High 35.1-43.9 [facility] Comment on above: Performed By: #### L 500.2500, L100.0100 ####[facility] [address] [place], [address] WBC (Bld) [#/Vol] 5.3 10*3/uL Normal 4.4-11.0 [facility] Comment on above: Performed By: #### L 500.2500, L100.0100 ####[facility] [address] [place], [address] Bedside Glucoseon 04-26-2025 FINGERSTICK GLU 163 mg/dL High 74-106 [facility] Comment on above: Result Comment: TORRES GEMENT OF PATIENT CARE PER NURSING PROTOCOL Performed By: #### L 501.080 ####[facility] [address] [place], [address] FINGERSTICK GLU 147 mg/dL High 74-106 [facility] Comment on above: Result Comment: TORRES GEMENT OF PATIENT CARE PER NURSING PROTOCOL Performed By: #### L 501.080 ####[facility] [address] [place], [address] Bedside Glucoseon 04-25-2025 FINGERSTICK GLU 200 mg/dL High 74-106 [facility] Comment on above: Result Comment: TORRES GEMENT OF PATIENT CARE PER NURSING PROTOCOL Performed By: #### L 501.080 ####[facility] [address] [place], [address] FINGERSTICK GLU 225 mg/dL High 74-106 [facility] Comment on above: Result Comment: TORRES GEMENT OF PATIENT CARE PER NURSING PROTOCOL Performed By: #### L 501.080 ####[facility] [address] [place], [address] Colonoscopy Reporton 025 Colonoscopy Report Normal [facility] EGD Reporton 04-25-2025 EGD Report Normal [facility] deOrdered By: Alonso Marte on 04-25-2025 Glucose [Mass/Vol] 200 mg/dL High 74-106 [facility] Gl[facility] at [facility] deOrdered By: Shan Lockett on 04-25-2025 Glucose [Mass/Vol] 225 mg/dL High 74-106 [facility] Comment on above: MANAGEMENT OF PATIEN T CARE PER NURSING PROTOCOL MR/POSTOP.ANEon 04-25-2025 MR/POSTOP.ANE Normal [facility] MR/[id number] 04-25-2025 MR/POSTOPAN2 Normal [facility] Surgery Specimen Level Macrina 04-25-2025 Surgery Specimen Level IV Normal [facility] Comment on above: Performed By: #### P SUIV ####[facility] [address] [facility] [address] Bedside Glucoseon 04-24-2025 FINGERSTICK GLU 128 mg/dL High 74-106 [facility] Comment on above: Result Comment: TORRES GEMENT OF PATIENT CARE PER NURSING PROTOCOL Performed By: #### L 501.080 ####[facility] [address] [place], [address] FINGERSTICK GLU 142 mg/dL High 74-106 [facility] Comment on above: Result Comment: TORRES GEMENT OF PATIENT CARE PER NURSING PROTOCOL Performed By: #### L 501.080 ####[facility] [address] [place], [address] Bedside Glucoseon 04-23-2025 FINGERSTICK GLU 166 mg/dL High -106 [facility] Comment on above: Result Comment: TORRES GEMENT OF PATIENT CARE PER NURSING PROTOCOL Performed By: #### L 501.080 ####[facility] [address] [place], [address] FINGERSTICK GLU 197 mg/dL High -106 [facility] Comment on above: Result Comment: TORRES GEMENT OF PATIENT CARE PER NURSING PROTOCOL Performed By: #### L 501.080 ####[facility] [address] [place], [address] MR/PAT.ANEon 04-23-2025 MR/PAT.ANE Normal [facility] Bedside Glucoseon 04-22-2025 FINGERSTICK GLU 191 mg/dL High -106 [facility] Comment on above: Result Comment: TORRES GEMENT OF PATIENT CARE PER NURSING PROTOCOL Performed By: #### L 501.080 ####[facility] [address] [place], [address] FINGERSTICK GLU 170 mg/dL High [facility]106 [facility] Comment on above: Result Comment: TORRES GEMENT OF PATIENT CARE PER NURSING PROTOCOL Performed By: #### L 501.080 ####[facility] [address] [place], [address] Calculated very low density lipoprotein (VLDL) cholesterol measurementOrdered By: Alonso Marte on 04-22-2025 Calculated very low density lipoprotein (VLDL) cholesterol measurement 33 mg/dL 5-40 [facility] Hemoglobin A1con 04-22-2025 HbA1c (Bld) [Mass fraction] 7.6 % High <=5.6 [facility] Comment on above: Result Comment: Norm al < 5.7 % Prediabetic 5.7 - 6.4 % Diabetic >or= 6.5 % Please note range changes. Performed By: #### L 500.4100, L501.9985 ####[facility] [address] [place], [place], [id number] Hemoglobin A1c percentageOrd ered By: Alonso Marte on 04-22-2025 HbA1c (Bld) [Mass fraction] 7.6 % High <5.7 [facility] Comment on above: Normal < 5.7 % Predi abetic 5.7 - 6.4 % Diabetic >or= 6.5 % Please note range changes. LDL calc ser/plasOrdered By: Alonso Marte on 04-22-2025 Cholesterol in LDL [Mass/Vol] 31 mg/dL [facility] Comment on above: Uofvjwdoay=945-555 m g/dL & Higher Gaod=689 mg/dL or greater Lipid Profileon 04-22-2025 CHOL:HDL 3.76 Normal [facility] Comment on above: Performed By: #### L 500.4100, [id number] ####[facility] [id number] [place], [place], [phone] Cholesterol [Mass/Vol] 88 mg/dL Normal <=200 [facility] Comment on above: Result Comment: Chol esterol level, Desirable <200 mg/dLBorderline high cholesterol 200-239 mg/dLHigh cholesterol >=240 mg/dLRecommendations of the NCEP Adult Treatment Panel for thefollowing risk-cutoff thresholds for the [place] Americanpulation. Performed By: #### L 500.4100, L501.9985 ####[facility] [address] [place], [place], [id number] Cholesterol in HDL [Mass/Vol] 23 mg/dL Low [facility] Comment on above: Result Comment: Betsy onal Cholesterol Education Program (NCEP) guidelines:<40 mg/dL: Low HDL-cholesterol (major risk factor for CHD)>= 60 mg/dL: High HDL-cholesterol (negative risk factor forCHD)HDL-cholesterol is affected by a number of factors, e.g.smoking, exercise, hormones, sex and age. Performed By: #### L 500.4100, L501.9985 ####[facility] [address] [place], [address] Cholesterol in LDL [Mass/Vol] 31 mg/dL Normal [facility] Comment on above: Result Comment: Bord thorpj=911-787 mg/dL Higher Jgmy=115 mg/dL or greater Performed By: #### L 500.4100, L501.9985 ####[facility] [address] [place], [address] Cholesterol in VLDL [Mass/Vol] 33 mg/dL Normal 5-40 [facility] Comment on above: Performed By: #### L 500.4100, L501.9985 ####[facility] [address] [place], [address] Triglyceride [Mass/Vol] 166 mg/dL Normal [facility] Comment on above: Result Comment: The drugs N-Acetylcysteine and Metamizole may falselydepress this assay.Normal range: <150 mg/dLBorderline High: 150-199 mg/dLHigh: 200-499 mg/dLVery High: >500 mg/dL Performed By: #### L 500.4100, L501.9985 ####[facility] [address] [place], [address] Screening total cholesterol/ high density lipoprotein (HDL) cholesterol ratioOrdered By: Alonso Marte on 04-22-2025 Cholesterol.total/Choles terol in HDL [Mass ratio] 3.76 {ratio} [facility] Serum or plasma cholesterol in HDL measurement (mass/volume)Ordered By: Alonso Marte on 04-22-2025 Cholesterol in HDL [Mass/Vol] 23 mg/dL Low >40 [facility] Comment on above: National Cholesterol Education Program (NCEP) guidelines:<40 mg/dL: Low HDL-cholesterol (major risk factor for CHD)>= 60 mg/dL: High HDL-cholesterol (negative risk factor for CHD)HDL-cholesterol is affected by a number of factors, e.g. smoking, exercise, hormones, sex and age. Serum or plasma cholesterol measurement (mass/volume)Ordered By: Alonso Marte on 04-22-2025 Cholesterol [Mass/Vol] 88 mg/dL <201 [facility] Comment on above: Cholesterol level, D esirable <200 mg/dLBorderline high cholesterol 200-239 mg/dLHigh cholesterol >=240 mg/dLRecommendations of the NCEP Adult Treatment Panel for the following risk-cutoff thresholds for the [place] population. Triglycerides measurementOrd ered By: Alonso Marte on 04-22-2025 Triglyceride [Mass/Vol] 166 mg/dL <[address] [facility] Comment on above: The drugs N-Acetylcy steine and Metamizole may falsely depress this assay. Normal range: <150 mg/dLBorderline High: 150-199 mg/dLHigh: 200-499 mg/dLVery High: >500 mg/dL Absolute lymphocyte countOrd ered By: Alonso Marte on 04-21-2025 Lymphocytes Auto (Unsp spec) [#/Vol] 1.10 10*3/uL 0.83-4.51 [facility] Anion gap in Serum or Plasma Ordered By: Alonso Marte on 04-21-2025 Anion gap [Moles/Vol] 8 mmol/L 5-15 [facility] Automated lymphocyte count a s percentage of total leukocytesOrdered By: Alonso Marte on 04-21-2025 Lymphocytes/100 WBC Auto (Unsp spec) 18.6 % Low 19-41 [facility] BUN/creatinine ratioOrdered By: Alonso Marte on 04-21-2025 Urea nitrogen/Creatinine [Mass ratio] 15.0 mg/mg 10- [facility] Basic Metabolic Profile (BMP )on 04-21-2025 BUN/CRE 15.0 RATIO Normal - [facility] Comment on above: Performed By: #### L 500.2500, L100.0100 ####[facility] [address] [place], [address] Calcium [Mass/Vol] 9.0 mg/dL Normal 7.6-11.0 [facility] Comment on above: Performed By: #### L 500.2500, L100.0100 ####[facility] [address] [place], [address] Chloride [Moles/Vol] 107 mmol/L Normal 98-108 [facility] Comment on above: Performed By: #### L 500.2500, L100.0100 ####[facility] [address] [place], [address] CO2 [Moles/Vol] 27.7 mmol/L Normal 21.0-32.0 [facility] Comment on above: Performed By: #### L 500.2500, L100.0100 ####[facility] [address] [place], [address] Creatinine [Mass/Vol] 0.95 mg/dL Normal 0.70-1.20 [facility] Comment on above: Performed By: #### L 500.2500, L100.0100 ####[facility] [address] [place], [address] ECRCL 51.79 ml/min Normal 50-250 [facility] Comment on above: Performed By: #### L 500.2500, L100.0100 ####[facility] [address] [place], [address] GAP 8 Normal 5-15 [facility] Comment on above: Performed By: #### L 500.2500, L100.0100 ####[facility] [address] [place], [address] GFR/1.73 sq M.predicted among non-blacks MDRD (S/P/Bld) [Vol rate/Area] 64 mL/min/{1.73_m2} Normal >60 [facility] Comment on above: Result Comment: mL/m in/1.73m2 CKD-EPI Creatinine Equation (2020) Performed By: #### L 500.2500, L100.0100 ####[facility] [address] [place], [address] Glucose [Mass/Vol] 185 mg/dL High 70-99 [facility] Comment on above: Performed By: #### L 500.2500, L100.0100 ####[facility] [address] [place], [address] Potassium [Moles/Vol] 4.3 mmol/L Normal 3.3-5.1 [facility] Comment on above: Performed By: #### L 500.2500, L100.0100 ####[facility] [address] [place], [address] Sodium [Moles/Vol] 142 mmol/L Normal 133-145 [facility] Comment on above: Performed By: #### L 500.2500, L100.0100 ####[facility] [address] [place], [address] Urea nitrogen [Mass/Vol] 14 mg/dL Normal 4-19 [facility] Comment on above: Performed By: #### L 500.2500, L100.0100 ####[facility] [address] [place], [address] Basophil percentageOrdered B y: Alonso Estuardo on 04-21-2025 Basophils/100 WBC (Bld) 0.3 % 0-[address] [facility] Bedside Glucoseon 04-21-2025 FINGERSTICK GLU 139 mg/dL High 74-106 [facility] Comment on above: Result Comment: TORRES GEMENT OF PATIENT CARE PER NURSING PROTOCOL Performed By: #### L 501.080 ####[facility] [address] [place], [address] FINGERSTICK GLU 165 mg/dL High 74-106 [facility] Comment on above: Result Comment: TORRES GEMENT OF PATIENT CARE PER NURSING PROTOCOL Performed By: #### L 501.080 ####[facility] [address] [place], [address] CBC W/Diff, Automatedon 05-3 -2024 Absolute Lymph 1.10 X10 3/uL Normal 0.83-4.51 [facility] Comment on above: Performed By: #### L 500.2500, L100.0100 ####[facility] [address] [place], [address] Absolute Neut 4.2 X10 3/uL Normal 2.0-7.7 [facility] Comment on above: Performed By: #### L 500.2500, L100.0100 ####[facility] [address] [place], [address] Basophils/100 WBC (Bld) 0.3 % Normal 0-[address] [facility] Comment on above: Performed By: #### L 500.2500, L100.0100 ####[facility] [address] [place], [address] Eosinophils/100 WBC (Bld) 2.7 % Normal 0-5 [facility] Comment on above: Performed By: #### L 500.2500, L100.0100 ####[facility] [address] [place], [address] Erythrocyte distribution width (RBC) [Ratio] 13.9 % Normal 11.6-14.6 [facility] Comment on above: Performed By: #### L 500.2500, L100.0100 ####[facility] [address] [place], [address] Hematocrit (Bld) [Volume fraction] 30.3 % Low 37-47 [facility] Comment on above: Performed By: #### L 500.2500, L100.0100 ####[facility] [address] [place], [address] Hemoglobin (Bld) [Mass/Vol] 9.7 g/dL Low 12.0-15.0 [facility] Comment on above: Performed By: #### L 500.2500, L100.0100 ####[facility] [address] [place], [address] IG% 0.300 Normal 0.0-0.9 [facility] Comment on above: Result Comment: IG% - Immature Granulocytes (promyelocytes, myelocytes andmetamyelocytes) > 1% indicates that a LEFT SHIFT is Present. Performed By: #### L 500.2500, L100.0100 ####[facility] [address] [place], [address] Lymphocytes/100 WBC (Bld) 18.6 % Low 19-41 [facility] Comment on above: Performed By: #### L 500.2500, L100.0100 ####[facility] [address] [place], [address] MCH (RBC) [Entitic mass] 31.1 pg Normal 27.0-32.0 [facility] Comment on above: Performed By: #### L 500.2500, L100.0100 ####[facility] [address] [place], [address] MCHC (RBC) [Mass/Vol] 32.0 g/dL Normal 32-36 [facility] Comment on above: Performed By: #### L 500.2500, L100.0100 ####[facility] [address] [place], [address] MCV (RBC) [Entitic vol] 97.1 fL Normal 81-[address] [facility] Comment on above: Performed By: #### L 500.2500, L100.0100 ####[facility] [address] [place], [address] Monocytes/100 WBC (Bld) 7.5 % Normal 0-[address] [facility] Comment on above: Performed By: #### L 500.2500, L100.0100 ####[facility] [address] [place], [address] Neutrophils/100 WBC (Bld) 70.6 % High 47-70 [facility] Comment on above: Performed By: #### L 500.2500, L100.0100 ####[facility] [address] [place], [address] Nucleated RBC (Bld) [#/Vol] 0 10*3/uL Normal 0-5 [facility] Comment on above: Performed By: #### L 500.2500, L100.0100 ####[facility] [address] [place], [address] Platelet mean volume (Bld) [Entitic vol] 10.3 fL Normal 6.2-12.0 [facility] Comment on above: Performed By: #### L 500.2500, L100.0100 ####[facility] [address] [place], [address] Platelets (Bld) [#/Vol] 168 10*3/uL Normal 150-450 [facility] Comment on above: Performed By: #### L 500.2500, L100.0100 ####[facility] [address] [place], [address] RBC (Bld) [#/Vol] 3.12 10*6/uL Low 4.2-5.4 [facility] Comment on above: Performed By: #### L 500.2500, L100.0100 ####[facility] [address] [place], [address] RDW SD 49.7 fl High 35.1-43.9 [facility] Comment on above: Performed By: #### L 500.2500, L100.0100 ####[facility] [address] [place], [address] WBC (Bld) [#/Vol] 5.9 10*3/uL Normal 4.4-11.0 [facility] Comment on above: Performed By: #### L 500.2500, L100.0100 ####[facility] [address] [place], [address] Carbon dioxide, total [Moles /volume] in Central venous bloodOrdered By: Alonso Marte on 04-21-2025 CO2 [Moles/Vol] 27.7 mmol/L 21.0-32.0 [facility] Chloride assayOrdered By: Rm Marte on 04-21-2025 Chloride [Moles/Vol] 107 mmol/L 98-108 [facility] Eosinophil percentageOrdered By: Alonso Marte 04-21-2025 Eosinophils/100 WBC (Bld) 2.7 % 0-5 [facility] Erythrocyte distribution wid th ratioOrdered By: Alonso Estuardo 04-21-2025 Erythrocyte distribution width (RBC) [Ratio] 13.9 % 11.6-14.6 [facility] Erythrocyte distribution wid th standard deviationOrdered By: Alonso Estuardo 04-21-2025 Erythrocyte distribution width (RBC) [Ratio] 49.7 fl High 35.1-43.9 [facility] Glomerular filtration rate ( GFR) estimation/1.73 sq m using serum, plasma, or whole bOrdered By: Alonso Marte on 04-21-2025 GFR/1.73 sq M.predicted among non-blacks MDRD (S/P/Bld) [Vol rate/Area] 64 mL/min/{1.73_m2} >60 [facility] Hematocrit Auto (Bld) [Volum e fraction]Ordered By: Alonso Marte 04-21-2025 Hematocrit (Bld) [Volume fraction] 30.3 % Low 37-47 [facility] Hemoglobin measurementOrdere d By: Alonso Marte 04-21-2025 Hemoglobin (Bld) [Mass/Vol] 9.7 g/dL Low 12.0-15.0 [facility] Immature granulocytes/100 WB C Auto (Bld)Ordered By: Alonso Marte 04-21-2025 Immature granulocytes/100 WBC (Bld) 0.300 % 0.0-0.9 [facility] MCV (mean corpuscular volume ) determinationOrdered By: Alonso Marte on 04-21-2025 MCV (RBC) [Entitic vol] 97.1 fL 81-[address] [facility] Mean corpuscular hemoglobin (MCH) determinationOrdered By: Alonso Marte on 04-21-2025 MCH (RBC) [Entitic mass] 31.1 pg 27.0-32.0 [facility] Monocyte percentageOrdered B y: Alonso Marte on 04-21-2025 Monocytes/100 WBC (Bld) 7.5 % 0-[address] [facility] Neutrophil percentageOrdered By: Alonso Marte on 04-21-2025 Neutrophils/100 WBC (Bld) 70.6 % High 47-70 [facility] Platelet countOrdered By: Rm Marte on 04-21-2025 Platelets (Bld) [#/Vol] 168 10*3/uL 150-450 [facility] Potassium measurement (mass/ volume)Ordered By: Alonso Marte 04-21-2025 Potassium (Unsp spec) [Mass/Vol] 4.3 mmol/L 3.3-5.1 [facility] RBC Auto (Bld) [#/Vol]Ordere d By: Alonso Marte on 04-21-2025 RBC (Bld) [#/Vol] 3.12 10*6/uL Low 4.2-5.4 [facility] Serum creatinine measurement (mass/volume)Ordered By: Alonso Marte 04-21-2025 Creatinine [Mass/Vol] 0.95 mg/dL 0.70-1.20 [facility] Serum glucose measurement (m ass/volume)Ordered By: Alonso Marte on 04-21-2025 Glucose [Mass/Vol] 185 mg/dL High 70-99 [facility] Serum or plasma calcium loco urement (mass/volume)Ordered By: Alonso Marte 04-21-2025 Calcium [Mass/Vol] 9.0 mg/dL 7.6-11.0 [facility] Serum or plasma urea nitroge n measurement (mass/volume)Ordered By: Alonso Marte 04-21-2025 Urea nitrogen [Mass/Vol] 14 mg/dL 4-19 [facility] Sodium levelOrdered By: Alonso Marte 04-21-2025 Sodium [Moles/Vol] 142 mmol/L 133-145 [facility] White blood cell (WBC) count Ordered By: Alonso Marte on 04-21-2025 WBC (Bld) [#/Vol] 5.9 10*3/uL 4.4-11.0 [facility] Anion gap in Serum or Plasma Ordered By: Maximo Orosco on 04-20-2025 Anion gap [Moles/Vol] 10 mmol/L 04-05 [facility] BUN/creatinine ratioOrdered By: Maximo Orosco on 04-20-2025 Urea nitrogen/Creatinine [Mass ratio] 13.4 mg/mg 09-10 [facility] Basic Metabolic Profile (BMP )on 04-20-2025 BUN/CRE 13.4 RATIO Normal 09-10 [facility] Comment on above: Performed By: #### L 100.0500, L500.2500 ####[facility] [address] [place], [address] Calcium [Mass/Vol] 8.7 mg/dL Normal 7.6-11.0 [facility] Comment on above: Performed By: #### L 100.0500, L500.2500 ####[facility] [address] [place], [address] Chloride [Moles/Vol] 105 mmol/L Normal 98-108 [facility] Comment on above: Performed By: #### L 100.0500, L500.2500 ####[facility] [address] [place], [address] CO2 [Moles/Vol] 23.8 mmol/L Normal 21.0-32.0 [facility] Comment on above: Performed By: #### L 100.0500, L500.2500 ####[facility] [address] [place], [address] Creatinine [Mass/Vol] 0.88 mg/dL Normal 0.70-1.20 [facility] Comment on above: Performed By: #### L 100.0500, L500.2500 ####[facility] [address] [place], [address] ECRCL 56.56 ml/min Normal 50-250 [facility] Comment on above: Performed By: #### L 100.0500, L500.2500 ####[facility] [address] [place], [address] GAP 10 Normal 5-15 [facility] Comment on above: Performed By: #### L 100.0500, L500.2500 ####[facility] [address] [place], [address] GFR/1.73 sq M.predicted among non-blacks MDRD (S/P/Bld) [Vol rate/Area] 70 mL/min/{1.73_m2} Normal >60 [facility] Comment on above: Result Comment: mL/m in/1.73m2 CKD-EPI Creatinine Equation (2020) Performed By: #### L 100.0500, L500.2500 ####[facility] [address] [place], [address] Glucose [Mass/Vol] 188 mg/dL High 70-99 [facility] Comment on above: Performed By: #### L 100.0500, L500.2500 ####[facility] [address] [place], [address] Potassium [Moles/Vol] 3.9 mmol/L Normal 3.3-5.1 [facility] Comment on above: Result Comment: Hemo lysis present, Results??could be affected.?? Performed By: #### L 100.0500, L500.2500 ####[facility] [address] [place], [address] Sodium [Moles/Vol] 138 mmol/L Normal 133-145 [facility] Comment on above: Performed By: #### L 100.0500, L500.2500 ####[facility] [address] [place], [address] Urea nitrogen [Mass/Vol] 12 mg/dL Normal 4-19 [facility] Comment on above: Performed By: #### L 100.0500, L500.2500 ####[facility] [address] [place], [address] Bedside Glucoseon 04-20-2025 FINGERSTICK GLU 177 mg/dL High 74-106 [facility] Comment on above: Result Comment: TORRES GEMENT OF PATIENT CARE PER NURSING PROTOCOL Performed By: #### L 501.080 ####[facility] [address] [place], [address] FINGERSTICK GLU 225 mg/dL High 74-106 [facility] Comment on above: Result Comment: TORRES GEMENT OF PATIENT CARE PER NURSING PROTOCOL Performed By: #### L 501.080 ####[facility] [address] [place], [address] FINGERSTICK GLU 197 mg/dL High 74-106 [facility] Comment on above: Result Comment: TORRES GEMENT OF PATIENT CARE PER NURSING PROTOCOL Performed By: #### L 501.080 ####[facility] [address] [place], [address] CBC-Complete Blood Cnt No Di ffon 04-20-2025 Erythrocyte distribution width (RBC) [Ratio] 13.7 % Normal 11.6-14.6 [facility] Comment on above: Performed By: #### L 100.0500, L500.2500 ####[facility] [address] [place], [address] Hematocrit (Bld) [Volume fraction] 28.7 % Low 37-47 [facility] Comment on above: Performed By: #### L 100.0500, L500.2500 ####[facility] [address] [place], [address] Hemoglobin (Bld) [Mass/Vol] 9.6 g/dL Low 12.0-15.0 [facility] Comment on above: Performed By: #### L 100.0500, L500.2500 ####[facility] [address] [place], [address] MCH (RBC) [Entitic mass] 31.3 pg Normal 27.0-32.0 [facility] Comment on above: Performed By: #### L 100.0500, L500.2500 ####[facility] [address] [place], [address] MCHC (RBC) [Mass/Vol] 33.4 g/dL Normal 32-36 [facility] Comment on above: Performed By: #### L 100.0500, L500.2500 ####[facility] [address] [place], [address] MCV (RBC) [Entitic vol] 93.5 fL Normal 81-99 [facility] Comment on above: Performed By: #### L 100.0500, L500.2500 ####[facility] [address] [place], [address] Platelet mean volume (Bld) [Entitic vol] 10.7 fL Normal 6.2-12.0 [facility] Comment on above: Performed By: #### L 100.0500, L500.2500 ####[facility] [address] [place], [address] Platelets (Bld) [#/Vol] 175 10*3/uL Normal 150-450 [facility] Comment on above: Performed By: #### L 100.0500, L500.2500 ####[facility] [address] [place], [address] RBC (Bld) [#/Vol] 3.07 10*6/uL Low 4.2-5.4 [facility] Comment on above: Performed By: #### L 100.0500, L500.2500 ####[facility] [address] [place], [address] RDW SD 46.6 fl High 35.1-43.9 [facility] Comment on above: Performed By: #### L 100.0500, L500.2500 ####[facility] [address] [place], [address] WBC (Bld) [#/Vol] 6.0 10*3/uL Normal 4.4-11.0 [facility] Comment on above: Performed By: #### L 100.0500, L500.2500 ####[facility] [address] [place], [address] Carbon dioxide, total [Moles /volume] in Central venous bloodOrdered By: Maximo Orosco on 04-20-2025 CO2 [Moles/Vol] 23.8 mmol/L 21.0-32.0 [facility] Chloride assayOrdered By: Sam Orosco on 04-20-2025 Chloride [Moles/Vol] 105 mmol/L 98-108 [facility] Erythrocyte distribution wid th ratioOrdered By: Maximo Orosco on 04-20-2025 Erythrocyte distribution width (RBC) [Ratio] 13.7 % 11.6-14.6 [facility] Erythrocyte distribution wid th standard deviationOrdered By: Maximo rOosco on 04-20-2025 Erythrocyte distribution width (RBC) [Ratio] 46.6 fl High 35.1-43.9 [facility] Glomerular filtration rate ( GFR) estimation/1.73 sq m using serum, plasma, or whole bOrdered By: Maximo Orosco on 04-20-2025 GFR/1.73 sq M.predicted among non-blacks MDRD (S/P/Bld) [Vol rate/Area] 70 mL/min/{1.73_m2} >60 [facility] Comment on above: mL/min/1.73m2 CKD-EP I Creatinine Equation (2020) [facility] deOrdered By: Maximo Orosco on 04-20-2025 Glucose [Mass/Vol] 225 mg/dL High 74-106 [facility] Comment on above: MANAGEMENT OF PATIEN T CARE PER NURSING PROTOCOL Hematocrit Auto (Bld) [Volum e fraction]Ordered By: Maximo Orosco on 04-20-2025 Hematocrit (Bld) [Volume fraction] 28.7 % Low 37-47 [facility] Hemoglobin measurementOrdere d By: Maximo Orosco on 04-20-2025 Hemoglobin (Bld) [Mass/Vol] 9.6 g/dL Low 12.0-15.0 [facility] MCV (mean corpuscular volume ) determinationOrdered By: Maximo Orosco on 04-20-2025 MCV (RBC) [Entitic vol] 93.5 fL 81-[address] [facility] Mean corpuscular hemoglobin (MCH) determinationOrdered By: Maximo Orosco on 04-20-2025 MCH (RBC) [Entitic mass] 31.3 pg 27.0-32.0 [facility] Mean corpuscular hemoglobin concentration (MCHC) determinationOrdered By: Maximo Orosco on 04-20-2025 MCHC (RBC) [Mass/Vol] 33.4 g/dL 32-36 [facility] Mean platelet volume determi nationOrdered By: Maximo Orosco on 04-20-2025 Platelet mean volume (Bld) [Entitic vol] 10.7 fL 6.2-12.0 [facility] Platelet countOrdered By: Sam Orosco on 04-20-2025 Platelets (Bld) [#/Vol] 175 10*3/uL 150-450 [facility] Potassium measurement (mass/ volume)Ordered By: Maximo Orosco on 04-20-2025 Potassium (Unsp spec) [Mass/Vol] 3.9 mmol/L 3.3-5.1 [facility] Comment on above: Hemolysis present, R esults could be affected. RBC Auto (Bld) [#/Vol]Ordere d By: Maximo Orosco on 04-20-2025 RBC (Bld) [#/Vol] 3.07 10*6/uL Low 4.2-5.4 [facility] Serum creatinine measurement (mass/volume)Ordered By: Maximo Orosco on 04-20-2025 Creatinine [Mass/Vol] 0.88 mg/dL 0.70-1.20 [facility] Serum glucose measurement (m ass/volume)Ordered By: Maximo rOosco on 04-20-2025 Glucose [Mass/Vol] 188 mg/dL High 70-99 [facility] Serum or plasma calcium loco urement (mass/volume)Ordered By: Maximo Orosco on 04-20-2025 Calcium [Mass/Vol] 8.7 mg/dL 7.6-11.0 [facility] Serum or plasma urea nitroge n measurement (mass/volume)Ordered By: Maximo Orosco on 04-20-2025 Urea nitrogen [Mass/Vol] 12 mg/dL 4-19 [facility] Sodium levelOrdered By: Pasquale Orosco on 04-20-2025 Sodium [Moles/Vol] 138 mmol/L 133-145 [facility] White blood cell (WBC) count Ordered By: Maximo Orosco on 04-20-2025 WBC (Bld) [#/Vol] 6.0 10*3/uL 4.4-11.0 [facility] 12 Lead EKGon 04-19-2025 12 Lead EKG Normal [facility] Absolute lymphocyte countOrd ered By: Romeo Padron on 04-19-2025 Lymphocytes Auto (Unsp spec) [#/Vol] 0.90 10*3/uL 0.83-4.51 [facility] Absolute neutrophil countOrd ered By: Romeo Padron on 04-19-2025 Neutrophils (Bld) [#/Vol] 6.8 10*3/uL 2.0-7.7 [facility] Anion gap in Serum or Plasma Ordered By: Romeo Padron on 04-19-2025 Anion gap [Moles/Vol] 10 mmol/L 5-15 [facility] Automated lymphocyte count a s percentage of total leukocytesOrdered By: Romeo Padron on 04-19-2025 Lymphocytes/100 WBC Auto (Unsp spec) 10.4 % Low 19-41 [facility] BUN/creatinine ratioOrdered By: Romeo Padron on 04-19-2025 Urea nitrogen/Creatinine [Mass ratio] 19.3 mg/mg 10- [facility] Basic Metabolic Profile (BMP )on 04-19-2025 BUN/CRE 19.3 RATIO Normal - [facility] Comment on above: Performed By: #### L [id number], L501.5200, L100.0100, L500.2500 ####[facility] [id number] [place], [address] Calcium [Mass/Vol] 9.0 mg/dL Normal 7.6-11.0 [facility] Comment on above: Performed By: #### L 501.9520, L501.5200, L100.0100, L500.2500 ####[facility] [address] [place], [address] Chloride [Moles/Vol] 99 mmol/L Normal 98-108 [facility] Comment on above: Performed By: #### L 501.9520, L501.5200, L100.0100, L500.2500 ####[facility] [address] [place], [address] CO2 [Moles/Vol] 25.9 mmol/L Normal 21.0-32.0 [facility] Comment on above: Performed By: #### L 501.9520, L501.5200, L100.0100, L500.2500 ####[facility] [address] [place], [address] Creatinine [Mass/Vol] 1.02 mg/dL Normal 0.70-1.20 [facility] Comment on above: Performed By: #### L 501.9520, L501.5200, L100.0100, L500.2500 ####[facility] [address] [place], [address] ECRCL 50.29 ml/min Normal 50-250 [facility] Comment on above: Performed By: #### L 501.9520, L501.5200, L100.0100, L500.2500 ####[facility] [address] [place], [address] GAP 10 Normal 5-15 [facility] Comment on above: Performed By: #### L 501.9520, L501.5200, L100.0100, L500.2500 ####[facility] [address] [place], [address] GFR/1.73 sq M.predicted among non-blacks MDRD (S/P/Bld) [Vol rate/Area] 58 mL/min/{1.73_m2} Low >60 [facility] Comment on above: Result Comment: mL/m in/1.73m2 CKD-EPI Creatinine Equation (2020) Performed By: #### L 501.9520, L501.5200, L100.0100, L500.2500 ####[facility] [address] [place], [address] Glucose [Mass/Vol] 229 mg/dL High 70-99 [facility] Comment on above: Performed By: #### L 501.9520, L501.5200, L100.0100, L500.2500 ####[facility] [address] [place], [address] Potassium [Moles/Vol] 4.4 mmol/L Normal 3.3-5.1 [facility] Comment on above: Result Comment: Hemo lysis present, Results??could be affected.?? Performed By: #### L 501.9520, L501.5200, L100.0100, L500.2500 ####[facility] [address] [place], [address] Sodium [Moles/Vol] 135 mmol/L Normal 133-145 [facility] Comment on above: Performed By: #### L 501.9520, L501.5200, L100.0100, L500.2500 ####[facility] [address] [place], [address] Urea nitrogen [Mass/Vol] 20 mg/dL High 4-19 [facility] Comment on above: Performed By: #### L 501.9520, L501.5200, L100.0100, L500.2500 ####[facility] [address] [place], [address] Basophil percentageOrdered B y: Romeo Parikhmain on 04-19-2025 Basophils/100 WBC (Bld) 0.3 % 0-[address] [facility] Bedside Glucoseon 04-19-2025 FINGERSTICK GLU 242 mg/dL High 74-106 [facility] Comment on above: Result Comment: TORRES GEMENT OF PATIENT CARE PER NURSING PROTOCOL Performed By: #### L 501.080 ####[facility] [address] [place], [address] FINGERSTICK GLU 260 mg/dL High 74-106 [facility] Comment on above: Result Comment: TORRES GEMENT OF PATIENT CARE PER NURSING PROTOCOL Performed By: #### L 501.080 ####[facility] [address] [place], [address] FINGERSTICK GLU 153 mg/dL High 74-106 [facility] Comment on above: Result Comment: TORRES GEMENT OF PATIENT CARE PER NURSING PROTOCOL Performed By: #### L 501.080 ####[facility] [address] [place], [address] Bilirubin Test strip Ql (U)O rdered By: Romeo Padron on 04-19-2025 Bilirubin Ql (U) Negative Negative [facility] CBC W/Diff, Automatedon 03-23 Absolute Lymph 0.90 X10 3/uL Normal 0.83-4.51 [facility] Comment on above: Performed By: #### L 501.9520, L501.5200, L100.0100, L500.2500 ####[facility] [address] [place], [address] Absolute Neut 6.8 X10 3/uL Normal 2.0-7.7 [facility] Comment on above: Performed By: #### L 501.9520, L501.5200, L100.0100, L500.2500 ####[facility] [address] [place], [address] Basophils/100 WBC (Bld) 0.3 % Normal 0-[address] [facility] Comment on above: Performed By: #### L 501.9520, L501.5200, L100.0100, L500.2500 ####[facility] [address] [place], [address] Eosinophils/100 WBC (Bld) 2.5 % Normal 0-5 [facility] Comment on above: Performed By: #### L 501.9520, L501.5200, L100.0100, L500.2500 ####[facility] [address] [place], [address] Erythrocyte distribution width (RBC) [Ratio] 13.3 % Normal 11.6-14.6 [facility] Comment on above: Performed By: #### L 501.9520, L501.5200, L100.0100, L500.2500 ####[facility] [address] [place], [address] Hematocrit (Bld) [Volume fraction] 30.8 % Low 37-47 [facility] Comment on above: Performed By: #### L 501.9520, L501.5200, L100.0100, L500.2500 ####[facility] [address] [place], [address] Hemoglobin (Bld) [Mass/Vol] 10.4 g/dL Low 12.0-15.0 [facility] Comment on above: Performed By: #### L 501.9520, L501.5200, L100.0100, L500.2500 ####[facility] [address] [place], [address] IG% 0.300 Normal 0.0-0.9 [facility] Comment on above: Result Comment: IG% - Immature Granulocytes (promyelocytes, myelocytes andmetamyelocytes) > 1% indicates that a LEFT SHIFT is Present. Performed By: #### L 501.9520, L501.5200, L100.0100, L500.2500 ####[facility] [address] [place], [address] Lymphocytes/100 WBC (Bld) 10.4 % Low 19-41 [facility] Comment on above: Performed By: #### L 501.9520, L501.5200, L100.0100, L500.2500 ####[facility] [address] [place], [address] MCH (RBC) [Entitic mass] 31.3 pg Normal 27.0-32.0 [facility] Comment on above: Performed By: #### L 501.9520, L501.5200, L100.0100, L500.2500 ####[facility] [address] [place], [address] MCHC (RBC) [Mass/Vol] 33.8 g/dL Normal 32-36 [facility] Comment on above: Performed By: #### L 501.9520, L501.5200, L100.0100, L500.2500 ####[facility] [address] [place], [address] MCV (RBC) [Entitic vol] 92.8 fL Normal 81-[address] [facility] Comment on above: Performed By: #### L 501.9520, L501.5200, L100.0100, L500.2500 ####[facility] [address] [place], [address] Monocytes/100 WBC (Bld) 8.2 % Normal 0-[address] [facility] Comment on above: Performed By: #### L 501.9520, L501.5200, L100.0100, L500.2500 ####[facility] [address] [place], [address] Neutrophils/100 WBC (Bld) 78.3 % High 47-70 [facility] Comment on above: Performed By: #### L 501.9520, L501.5200, L100.0100, L500.2500 ####[facility] [address] [place], [address] Nucleated RBC (Bld) [#/Vol] 0 10*3/uL Normal 0-5 [facility] Comment on above: Performed By: #### L 501.9520, L501.5200, L100.0100, L500.2500 ####[facility] [address] [place], [address] Platelet mean volume (Bld) [Entitic vol] 10.8 fL Normal 6.2-12.0 [facility] Comment on above: Performed By: #### L 501.9520, L501.5200, L100.0100, L500.2500 ####[facility] [address] [place], [address] Platelets (Bld) [#/Vol] 189 10*3/uL Normal 150-450 [facility] Comment on above: Performed By: #### L 501.9520, L501.5200, L100.0100, L500.2500 ####[facility] [address] [place], [address] RBC (Bld) [#/Vol] 3.32 10*6/uL Low 4.2-5.4 [facility] Comment on above: Performed By: #### L 501.9520, L501.5200, L100.0100, L500.2500 ####[facility] [address] [place], [address] RDW SD 44.9 fl High 35.1-43.9 [facility] Comment on above: Performed By: #### L 501.9520, L501.5200, L100.0100, L500.2500 ####[facility] [address] [place], [address] WBC (Bld) [#/Vol] 8.7 10*3/uL Normal 4.4-11.0 [facility] Comment on above: Performed By: #### L 501.9520, L501.5200, L100.0100, L500.2500 ####[facility] [address] [place], [address] Carbon dioxide, total [Moles /volume] in Central venous bloodOrdered By: Romeo Padron on 04-19-2025 CO2 [Moles/Vol] 25.9 mmol/L 21.0-32.0 [facility] Chloride assayOrdered By: Lizeth Padron on 04-19-2025 Chloride [Moles/Vol] 99 mmol/L 98-108 [facility] Emergency Department Summary on 04-19-2025 Emergency Department Summary Normal [facility] Eosinophil percentageOrdered By: Romeo Padron on 04-19-2025 Eosinophils/100 WBC (Bld) 2.5 % 0-5 [facility] Erythrocyte distribution wid th ratioOrdered By: Romeo Padron on 04-19-2025 Erythrocyte distribution width (RBC) [Ratio] 13.3 % 11.6-14.6 [facility] Erythrocyte distribution wid th standard deviationOrdered By: Romeo Padron on 04-19-2025 Erythrocyte distribution width (RBC) [Ratio] 44.9 fl High 35.1-43.9 [facility] Glomerular filtration rate ( GFR) estimation/1.73 sq m using serum, plasma, or whole bOrdered By: Romeo Padron on 04-19-2025 GFR/1.73 sq M.predicted among non-blacks MDRD (S/P/Bld) [Vol rate/Area] 58 mL/min/{1.73_m2} Low >60 [facility] Comment on above: mL/min/1.73m2 CKD-EP I Creatinine Equation (2020) [facility] deOrdered By: Romeo Padron on 04-19-2025 Glucose [Mass/Vol] 153 mg/dL High 74-106 [facility] Comment on above: MANAGEMENT OF PATIEN T CARE PER NURSING PROTOCOL H AND P Exam - Hospitaliston 04-19-2025 H&P Exam - Hospitalist Normal [facility] Hematocrit Auto (Bld) [Volum e fraction]Ordered By: Romeo Padron on 04-19-2025 Hematocrit (Bld) [Volume fraction] 30.8 % Low 37-47 [facility] Hemoglobin measurementOrdere d By: Romeo Padron on 04-19-2025 Hemoglobin (Bld) [Mass/Vol] 10.4 g/dL Low 12.0-15.0 [facility] Immature granulocytes/100 WB C Auto (Bld)Ordered By: Romeo Padron on 04-19-2025 Immature granulocytes/100 WBC (Bld) 0.300 % 0.0-0.9 [facility] Comment on above: IG% - Immature Granu locytes (promyelocytes, myelocytes and metamyelocytes) > 1% indicates that a LEFT SHIFT is Present. Ketones Test strip Ql (U)Ord ered By: Romeo Padron on 04-19-2025 Ketones Ql (U) Negative Negative [facility] MCV (mean corpuscular volume ) determinationOrdered By: Romeo Padron on 04-19-2025 MCV (RBC) [Entitic vol] 92.8 fL 81-[address] [facility] Magnesiumon 04-19-2025 Magnesium [Mass/Vol] 1.6 mg/dL Normal 1.5-2.2 [facility] Comment on above: Performed By: #### L 501.9547, L501.5200, L100.0100, L500.2500 ####[facility] [address] [place], [address] Magnesium measurement (mass/ volume)Ordered By: Romeo Padron on 04-19-2025 Magnesium (Unsp spec) [Mass/Vol] 1.6 mg/dL 1.5-2.2 [facility] Mean corpuscular hemoglobin (MCH) determinationOrdered By: Romeo Padron on 04-19-2025 MCH (RBC) [Entitic mass] 31.3 pg 27.0-32.0 [facility] Mean corpuscular hemoglobin concentration (MCHC) determinationOrdered By: Romeo Padron on 04-19-2025 MCHC (RBC) [Mass/Vol] 33.8 g/dL 32-36 [facility] Mean platelet volume determi nationOrdered By: Romeo Padron on 04-19-2025 Platelet mean volume (Bld) [Entitic vol] 10.8 fL 6.2-12.0 [facility] Microscopic analysis of urin e for red blood cells (RBC)Ordered By: Romeo Padron on 04-19-2025 Microscopic analysis of urine for red blood cells (RBC) 0 SEEN /hpf 0-5 [facility] Monocyte percentageOrdered B y: Romeo Padron on 04-19-2025 Monocytes/100 WBC (Bld) 8.2 % 0-[address] [facility] Mucus LM Ql (Urine sed)Order ed By: Romeo Padron on 04-19-2025 Mucus Ql (Urine sed) 0 SEEN /hpf [facility] Neutrophil percentageOrdered By: Romeo Padron on 04-19-2025 Neutrophils/100 WBC (Bld) 78.3 % High 47-70 [facility] Nitrite Test strip Ql (U)Ord ered By: Romeo Padron on 04-19-2025 Nitrite Ql (U) Negative Negative [facility] Nucleated red blood cell per centageOrdered By: Romeo Padron on 04-19-2025 Nucleated RBC/100 WBC (Bld) [Ratio] 0 % 0-5 [facility] Platelet countOrdered By: Lizeth Padron on 04-19-2025 Platelets (Bld) [#/Vol] 189 10*3/uL 150-450 [facility] Potassium measurement (mass/ volume)Ordered By: Romeo Padron on 04-19-2025 Potassium (Unsp spec) [Mass/Vol] 4.4 mmol/L 3.3-5.1 [facility] Comment on above: Hemolysis present, R esults could be affected. Protein Test strip Ql (U)Ord ered By: Romeo Padron on 04-19-2025 Protein Ql (U) 15 mg/dl High Negative [facility] RBC Auto (Bld) [#/Vol]Ordere d By: Romeo Padron on 04-19-2025 RBC (Bld) [#/Vol] 3.32 10*6/uL Low 4.2-5.4 [facility] Serum creatinine measurement (mass/volume)Ordered By: Romeo Padron on 04-19-2025 Creatinine [Mass/Vol] 1.02 mg/dL 0.70-1.20 [facility] Serum glucose measurement (m ass/volume)Ordered By: Romeo Padron on 04-19-2025 Glucose [Mass/Vol] 229 mg/dL High 70-99 [facility] Serum or plasma calcium loco urement (mass/volume)Ordered By: Romeo Padron on 04-19-2025 Calcium [Mass/Vol] 9.0 mg/dL 7.6-11.0 [facility] Serum or plasma urea nitroge n measurement (mass/volume)Ordered By: Romeo Padron on 04-19-2025 Urea nitrogen [Mass/Vol] 20 mg/dL High 4-19 [facility] Sodium levelOrdered By: Aleksander Padron on 04-19-2025 Sodium [Moles/Vol] 135 mmol/L 133-145 [facility] Squamous epithelial cells de tection in urine sediment by light microscopyOrdered By: Romeo Padron on 04-19-2025 Epithelial cells.squamous LM Ql (Urine sed) 0 SEEN /hpf 5-10 [facility] TSH DL <= 0.005 mIU/L QnOrde red By: Romeo Padron on 04-19-2025 TSH Qn 4.050 uIU/mL 0.300-4.200 [facility] Thyroid Stim Hormone (TSH)on 04-19-2025 TSH 4.050 uIU/mL Normal 0.300-4.200 [facility] Comment on above: Performed By: #### L 501.5220, L501.5200, L100.0100, L500.2500 ####[facility] [address] [place], [place], [id number] Urinalysis, Completeon 04-19 BACTERIA 0 SEEN Normal None Seen [facility] Comment on above: Order Comment: HUNTER CTOR TO SPECIFY Performed By: #### L 400.0001 ####[facility] [address] [place], [address] EPI,SQUAMOUS 0 SEEN Normal 5-10 [facility] Comment on above: Order Comment: HUNTER CTOR TO SPECIFY Performed By: #### L 400.0001 ####[facility] [address] [place], [address] Mucus Ql (Urine sed) 0 SEEN Normal [facility] Comment on above: Order Comment: HUNTER CTOR TO SPECIFY Performed By: #### L 400.0001 ####[facility] [address] [place], [address] RBC 0 SEEN Normal 0-5 [facility] Comment on above: Order Comment: HUNTER CTOR TO SPECIFY Performed By: #### L 400.0001 ####[facility] [address] [place], [address] WBC 0 SEEN Normal 0-5 [facility] Comment on above: Order Comment: HUNTER CTOR TO SPECIFY Performed By: #### L 400.0001 ####[facility] [address] [place], [address] Urine clarityOrdered By: Ryan Padron on 04-19-2025 Clarity (U) Clear Clear [facility] Urine color determinationOrd ered By: Romeo Padron on 04-19-2025 Color (U) Yellow Yellow [facility] Urine glucose detectionOrder ed By: Romeo aPdron on 04-19-2025 Glucose Ql (U) 100 mg/dl High Normal [facility] Urine leukocyte esterase det ection by dipstickOrdered By: Romeo Padron on 04-19-2025 Leukocyte esterase Test strip Ql (U) Negative Negative [facility] Urine pHOrdered By: Romeo salas on 04-19-2025 pH (U) 6.5 [pH] 5.0 - 8.0 [facility] Urine sediment bacteria coun t by microscopy (number/high power field)Ordered By: Romeo Padron on 04-19-2025 Bacteria LM.HPF (Urine sed) [#/Area] 0 /[HPF] None Seen [facility] Urine specific gravity measu rementOrdered By: Romeo Pdaron on 04-19-2025 Specific gravity (U) [Rel density] 1.010 1.002-1.030 [facility] Urine urobilinogen measureme ntOrdered By: Romeo Padron on 04-19-2025 Urobilinogen Ql (U) Normal mg/dl Normal [facility] White blood cell (WBC) count Ordered By: Romeo Padron on 04-19-2025 WBC (Bld) [#/Vol] 8.7 10*3/uL 4.4-11.0 [facility] White blood cell countOrdere d By: Romeo Padron on 04-19-2025 White blood cell count 0 SEEN /hpf 0-[address] 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 Remainder of the brain shows relatively mild background chronic microvascular disease. No acute abnormalities. Marketing Technology Specialist: PSCB Transcribe Date/Time: Apr 04 2025 12:45P Dictated by : BRITANY GASPAR MD This examination was interpreted and the report reviewed and electronically signed by: BRITANY GASPAR MD on Apr 04 2025 1:03PM [facility] * * *Final Report* * * DATE OF EXAM: Apr 04 2025 12:39PM [facility] 0294 - MRI BRAIN WO IVCON / [...] Prior lens replacements. Orbits are otherwise unremarkable. [facility] Provider, [facility] - 04/04/2025 * * *Final Report* * * DATE OF EXAM: Apr 04 2025 12:39PM [facility] 0294 - MRI BRAIN WO IVCON / [...] background chronic microvascular disease. No acute abnormalities. Marketing Technology Specialist: MARC Transcribe Date/Time: Apr 04 2025 12:45P Dictated by : BRITANY GASPAR MD This examination was interpreted and the report reviewed and electronically signed by: BRITANY GASPAR MD on Apr 04 2025 1:03PM [facility] Radiology Study observation (narrative) [facility] MR Brain WO contrastOrdered By: [facility] Provider on 04-04-2025 [facility] MRI BRAIN WO IVCONon 025 MRI BRAIN WO IVCON * * *Final Report* * * DATE OF EXAM: Apr 04 2025 12:39PM [facility] 0294 - MRI BRAIN WO IVCON / [...] background chronic microvascular disease. No acute abnormalities. Marketing Technology Specialist: MARC Transcribe Date/Time: Apr 04 2025 12:45P Dictated by : BRITANY GASPAR MD This examination was interpreted and the report reviewed and electronically signed by: BRITANY GASPAR MD on Apr 04 2025 1:03PM EST [id number] [facility] NURSING PROGon 04-04-2025 NURSING PROG HNO ID: [id number] Author: JANINE TOMPKINS RN Service: Nursing Author [...] REVIEWED: YES PROCEDURE: MRI - Conditional Pacemaker [employer] Silo Filler Device - Settings: DOO 90 bpm Physiologic monitoring per standard operating procedure. See vital sign flowsheet. PERIPHERAL IV ACCESS: Not applicable PATIENT TOLERATED PROCEDURE: Without incident. PATIENT DISCHARGED TO: Home/Self Care SIGNED BY: TANIA Barnett Patient arrived here today for an MRI. Patients [employer] Pacemaker was placed in MRI safe mode by injection mold tooling technician AND device. Vitals remained stable throughout - see flowsheet. MRI was completed and then pacemaker was taken out of MRI safe mode and tolerated well. Patient was discharged home with family. [facility] XR CHEST 2V FRONTAL/LATon XR CHEST 2V FRONTAL/LAT * * *Final Repor t* * * DATE OF EXAM: Apr 02 [...] chest. No developing abnormality or acute process Marketing Technology Specialist: MARC Transcribe Date/Time: Apr 03 2025 3:49P Dictated by : MIRA HODGSON MD This examination was interpreted and the report reviewed and electronically signed by: MIRA HODGSON MD on Apr 03 2025 3:51PM EST [id number] [facility] 03-28-2025 CNPN Telephone (NRMDN) MANSI CARO ([id number]) 1955 F Date Time Provider Department 03/28/25 LEYLA MURPHY During your visit today, we recorded the following information about you: Soumya Moss RN 03/28/2025 9:48 AM Signed Voicemail received March 27, 2025 [id number] Spouse calling to check on status of [...] and is willing to rechallenge Jose RN Date Reviewed: 02/27/2025 Reviewed by: Leyla Murphy MD - Fully Assessed Reason for Visit: Patient Question [4017] Prescriptions as of 03/28/2025 - deutetrabenazine XR (AUSTEDO XR) 6 mg tablet Take 1 tablet by mouth once daily. - Acetaminophen 500 mg cap 500 mg. - albuterol sulfate 90 mcg/actuation aebs - oxyCODONE-acetaminophe n (PERCOCET) 5-325 mg tablet 1 TABLET ORAL [...] Status:Closed by SOUMYA MOSS on 03/28/25 Normal [facility] PT D/C Summary (1)on 025 PT D/C Summary (1) Normal [facility] 12 Lead EKGon 03-10-2025 12 Lead EKG Normal [facility] 36on 03-10-2025 36 S-Patient and patien t spouse calling in re: patient fell yesterday and has Left hip pain . B-Happened yesterday A-states having hard time walking due to pain, No COVID Symptoms. Has a brouis, no other sites with pain R-Scheduled Same Day After hours appt today @ 10:00a 03/10/25 @ [facility], address provided Reason for Disposition MILD weakness (i.e., does not interfere with ability to work, go to school, normal activities) (Exception: Mild weakness is a chronic symptom.) Answer Assessment - Initial Assessment Questions . Protocols used: Falls and Iozfhsd-OCLCE-UQ Normal [facility] Absolute lymphocyte countOrd ered By: Mellisa Cabrera on 03-10-2025 Lymphocytes Auto (Unsp spec) [#/Vol] 1.61 10*3/uL 0.83-4.51 [facility] Absolute neutrophil countOrd ered By: Mellisa Cabrera on 03-10-2025 Neutrophils (Bld) [#/Vol] 3.9 10*3/uL 2.0-7.7 [facility] Anion gap in Serum or Plasma Ordered By: Mellisa Cabrera on 03-10-2025 Anion gap [Moles/Vol] 11 mmol/L 5-15 [facility] Automated lymphocyte count a s percentage of total leukocytesOrdered By: Mellisa Cabrera on 03-10-2025 Lymphocytes/100 WBC Auto (Unsp spec) 25.4 % - [facility] BUN/creatinine ratioOrdered By: Mellisa Cabrera on 03-10-2025 Urea nitrogen/Creatinine [Mass ratio] 20.1 mg/mg High 10- [facility] Basic Metabolic Profile (BMP )on 03-10-2025 BUN/CRE 20.1 RATIO High 09-10 [facility] Comment on above: Performed By: #### L 100.0100, L500.2500 ####[facility] [address] [place], [address] Calcium [Mass/Vol] 9.1 mg/dL Normal 7.6-11.0 [facility] Comment on above: Performed By: #### L 100.0100, L500.2500 ####[facility] [address] [place], [address] Chloride [Moles/Vol] 106 mmol/L Normal 98-108 [facility] Comment on above: Performed By: #### L 100.0100, L500.2500 ####[facility] [address] [place], [address] CO2 [Moles/Vol] 22.8 mmol/L Normal 21.0-32.0 [facility] Comment on above: Performed By: #### L 100.0100, L500.2500 ####[facility] [address] [place], [address] Creatinine [Mass/Vol] 0.97 mg/dL Normal 0.70-1.20 [facility] Comment on above: Performed By: #### L 100.0100, L500.2500 ####[facility] [address] [place], [address] ECRCL 51.73 ml/min Normal 50-250 [facility] Comment on above: Performed By: #### L 100.0100, L500.2500 ####[facility] [address] [place], [address] GAP 11 Normal 5-15 [facility] Comment on above: Performed By: #### L 100.0100, L500.2500 ####[facility] [address] [place], [address] GFR/1.73 sq M.predicted among non-blacks MDRD (S/P/Bld) [Vol rate/Area] 62 mL/min/{1.73_m2} Normal >60 [facility] Comment on above: Result Comment: mL/m in/1.73m2 CKD-EPI Creatinine Equation (2020) Performed By: #### L 100.0100, L500.2500 ####[facility] [address] [place], [address] Glucose [Mass/Vol] 139 mg/dL High 70-99 [facility] Comment on above: Performed By: #### L 100.0100, L500.2500 ####[facility] [address] [place], [address] Potassium [Moles/Vol] 4.3 mmol/L Normal 3.3-5.1 [facility] Comment on above: Performed By: #### L 100.0100, L500.2500 ####[facility] [address] [place], [address] Sodium [Moles/Vol] 140 mmol/L Normal 133-145 [facility] Comment on above: Performed By: #### L 100.0100, L500.2500 ####[facility] [address] [place], [address] Urea nitrogen [Mass/Vol] 20 mg/dL High -19 [facility] Comment on above: Performed By: #### L 100.0100, L500.2500 ####[facility] [address] [place], [address] Basophil percentageOrdered B y: Mellisa Cabrera on 03-10-2025 Basophils/100 WBC (Bld) 0.3 % 0-[address] [facility] Bilirubin Test strip Ql (U)O rdered By: Mellisa Cabrera on 03-10-2025 Bilirubin Ql (U) Negative Negative [facility] CBC W/Diff, Automatedon - Absolute Lymph 1.61 X10 3/uL Normal 0.83-4.51 [facility] Comment on above: Performed By: #### L 100.0100, L500.2500 ####[facility] [address] [place], [address] Absolute Neut 3.9 X10 3/uL Normal 2.0-7.7 [facility] Comment on above: Performed By: #### L 100.0100, L500.2500 ####[facility] [address] [place], [address] Basophils/100 WBC (Bld) 0.3 % Normal 0-[address] [facility] Comment on above: Performed By: #### L 100.0100, L500.2500 ####[facility] [address] [place], [address] Eosinophils/100 WBC (Bld) 3.8 % Normal 0-5 [facility] Comment on above: Performed By: #### L 100.0100, L500.2500 ####[facility] [address] [place], [address] Erythrocyte distribution width (RBC) [Ratio] 12.8 % Normal 11.6-14.6 [facility] Comment on above: Performed By: #### L 100.0100, L500.2500 ####[facility] [address] [place], [address] Hematocrit (Bld) [Volume fraction] 32.2 % Low 37-47 [facility] Comment on above: Performed By: #### L 100.0100, L500.2500 ####[facility] [address] [place], [address] Hemoglobin (Bld) [Mass/Vol] 11.0 g/dL Low 12.0-15.0 [facility] Comment on above: Performed By: #### L 100.0100, L500.2500 ####[facility] [address] [place], [address] IG% 0.300 Normal 0.0-0.9 [facility] Comment on above: Result Comment: IG% - Immature Granulocytes (promyelocytes, myelocytes andmetamyelocytes) > 1% indicates that a LEFT SHIFT is Present. Performed By: #### L 100.0100, L500.2500 ####[facility] [address] [place], [address] Lymphocytes/100 WBC (Bld) 25.4 % Normal 19-41 [facility] Comment on above: Performed By: #### L 100.0100, L500.2500 ####[facility] [address] [place], [address] MCH (RBC) [Entitic mass] 30.9 pg Normal 27.0-32.0 [facility] Comment on above: Performed By: #### L 100.0100, L500.2500 ####[facility] [address] [place], [address] MCHC (RBC) [Mass/Vol] 34.2 g/dL Normal 32-36 [facility] Comment on above: Performed By: #### L 100.0100, L500.2500 ####[facility] [address] [place], [address] MCV (RBC) [Entitic vol] 90.4 fL Normal 81-[address] [facility] Comment on above: Performed By: #### L 100.0100, L500.2500 ####[facility] [address] [place], [address] Monocytes/100 WBC (Bld) 8.3 % Normal 0-[address] [facility] Comment on above: Performed By: #### L 100.0100, L500.2500 ####[facility] [address] [place], [address] Neutrophils/100 WBC (Bld) 61.9 % Normal 47-70 [facility] Comment on above: Performed By: #### L 100.0100, L500.2500 ####[facility] [address] [place], [address] Nucleated RBC (Bld) [#/Vol] 0 10*3/uL Normal 0-5 [facility] Comment on above: Performed By: #### L 100.0100, L500.2500 ####[facility] [address] [place], [address] Platelet mean volume (Bld) [Entitic vol] 11.0 fL Normal 6.2-12.0 [facility] Comment on above: Performed By: #### L 100.0100, L500.2500 ####[facility] [address] [place], [address] Platelets (Bld) [#/Vol] 148 10*3/uL Low 150-450 [facility] Comment on above: Performed By: #### L 100.0100, L500.2500 ####[facility] [address] [place], [address] RBC (Bld) [#/Vol] 3.56 10*6/uL Low 4.2-5.4 [facility] Comment on above: Performed By: #### L 100.0100, L500.2500 ####[facility] [address] [place], [address] RDW SD 42.3 fl Normal 35.1-43.9 [facility] Comment on above: Performed By: #### L 100.0100, L500.2500 ####[facility] [address] [place], [address] WBC (Bld) [#/Vol] 6.4 10*3/uL Normal 4.4-11.0 [facility] Comment on above: Performed By: #### L 100.0100, L500.2500 ####[facility] [address] [place], [address] Carbon dioxide, total [Moles /volume] in Central venous bloodOrdered By: Mellisa Cabrera on 03-10-2025 CO2 [Moles/Vol] 22.8 mmol/L 21.0-32.0 [facility] Chloride assayOrdered By: Amparo Cabrera on 03-10-2025 Chloride [Moles/Vol] 106 mmol/L 98-108 [facility] Emergency Department Summary on 03-10-2025 Emergency Department Summary Normal [facility] Eosinophil percentageOrdered By: Mellisa Cabrrea on 03-10-2025 Eosinophils/100 WBC (Bld) 3.8 % 0-5 [facility] Epithelial cells.squamous LM Ql (Urine sed)Ordered By: Mellisa Cabrera on 03-10-2025 Epithelial cells.squamous LM.HPF (Urine sed) [#/Area] 0 /[HPF] 5-10 [facility] Erythrocyte distribution wid th (RBC) [Ratio]Ordered By: Mellisa Cabrera on 03-10-2025 Erythrocyte distribution width (RBC) [Entitic vol] 42.3 fL 35.1-43.9 [facility] Erythrocyte distribution wid th ratioOrdered By: Mellisa Cabrera on 03-10-2025 Erythrocyte distribution width (RBC) [Ratio] 12.8 % 11.6-14.6 [facility] Erythrocyte distribution wid th standard deviationOrdered By: Mellisa Cabrera on 03-10-2025 Erythrocyte distribution width (RBC) [Ratio] 42.3 fl 35.1-43.9 [facility] Estimation of creatinine julio cesar aranceOrdered By: Mellisa Cabrera on 03-10-2025 Estimated Creatinine Clearance Calc 51.73 ml/min 50-250 [facility] GFR/1.73 sq M.predicted kwame g non-blacks MDRD (S/P/Bld) [Vol rate/Area]Ordered By: Mellisa Cabrera on 03-10-2025 Estimated GFR (MDRD) Non-Af Amer 62 >60 [facility] Comment on above: mL/min/1.73m2 CKD-EP I Creatinine Equation (2020) Glomerular filtration rate ( GFR) estimation/1.73 sq m using serum, plasma, or whole bOrdered By: Mellisa Cabrera on 03-10-2025 GFR/1.73 sq M.predicted among non-blacks MDRD (S/P/Bld) [Vol rate/Area] 62 mL/min/{1.73_m2} >60 [facility] Comment on above: mL/min/1.73m2 CKD-EP I Creatinine Equation (2020) Glucose Ql (U)Ordered By: Amparo Cabrera on 03-10-2025 Urine Glucose (UA) Normal mg/dl Normal [facility] HIP, UNI W/ Pelvis 2-3 Views on 03-10-2025 HIP, UNI W/ Pelvis 2-3 Views Normal [facility] Hematocrit Auto (Bld) [Volum e fraction]Ordered By: Mellisa Cabrera on 03-10-2025 Hematocrit (Bld) [Volume fraction] 32.2 % Low 37-47 [facility] Hemoglobin measurementOrdere d By: Mellisa Cabrera on 03-10-2025 Hemoglobin (Bld) [Mass/Vol] 11.0 g/dL Low 12.0-15.0 [facility] Immature granulocytes/100 WB C Auto (Bld)Ordered By: Mellisa Cabrera on 03-10-2025 Immature granulocytes/100 WBC (Bld) 0.300 % 0.0-0.9 [facility] Comment on above: IG% - Immature Granu locytes (promyelocytes, myelocytes and metamyelocytes) > 1% indicates that a LEFT SHIFT is Present. Ketones Test strip Ql (U)Ord ered By: Mellisa Cabrera on 03-10-2025 Ketones Ql (U) Negative Negative [facility] Lymphocytes Auto (Unsp spec) [#/Vol]Ordered By: Mellisa Cabrera on 03-10-2025 Lymphocytes (Bld) [#/Vol] 1.61 10*3/uL 0.83-4.51 [facility] Lymphocytes/100 WBC Auto (Un sp spec)Ordered By: Mellisa Cabrera on 03-10-2025 Lymphocytes/100 WBC (Bld) 25.4 % 19-41 [facility] MCV (mean corpuscular volume ) determinationOrdered By: Mellisa Cabrera on 03-10-2025 MCV (RBC) [Entitic vol] 90.4 fL 81-[address] [facility] Mean corpuscular hemoglobin (MCH) determinationOrdered By: Mellisa Cabrera on 03-10-2025 MCH (RBC) [Entitic mass] 30.9 pg 27.0-32.0 [facility] Mean corpuscular hemoglobin concentration (MCHC) determinationOrdered By: Mellisa Cabrera on 03-10-2025 MCHC (RBC) [Mass/Vol] 34.2 g/dL 32-36 [facility] Mean platelet volume determi nationOrdered By: Mellisa Cabrera on 03-10-2025 Platelet mean volume (Bld) [Entitic vol] 11.0 fL 6.2-12.0 [facility] Microscopic analysis of urin e for red blood cells (RBC)Ordered By: Mellisa Cabrera on 03-10-2025 Microscopic analysis of urine for red blood cells (RBC) 0 SEEN /hpf 0-5 [facility] Urine RBC 0 SEEN /hpf 0-5 [facility] Monocyte percentageOrdered B y: Mellisa Cabrera on 03-10-2025 Monocytes/100 WBC (Bld) 8.3 % 0-[address] [facility] Mucus LM Ql (Urine sed)Order ed By: Mellisa Cabrera on 03-10-2025 Mucus Ql (Urine sed) 0 SEEN /hpf [facility] Neutrophil percentageOrdered By: Mellisa Cabrera on 03-10-2025 Neutrophils/100 WBC (Bld) 61.9 % 47-70 [facility] Nitrite Test strip Ql (U)Ord ered By: Mellisa Cabrera on 03-10-2025 Nitrite Ql (U) Negative Negative [facility] Nucleated red blood cell per centageOrdered By: Mellisa Cabrera on 03-10-2025 Nucleated RBC/100 WBC (Bld) [Ratio] 0 % 0-5 [facility] Platelet countOrdered By: Amparo Cabrera on 03-10-2025 Platelets (Bld) [#/Vol] 148 10*3/uL Low 150-450 [facility] Potassium (Unsp spec) [Mass/ Vol]Ordered By: Mellisa Cabrera on 03-10-2025 Potassium [Moles/Vol] 4.3 mmol/L 3.3-5.1 [facility] Potassium measurement (mass/ volume)Ordered By: Mellisa Cabrera on 03-10-2025 Potassium (Unsp spec) [Mass/Vol] 4.3 mmol/L 3.3-5.1 [facility] Protein Test strip Ql (U)Ord ered By: Mellisa Cabrera on 03-10-2025 Protein Ql (U) 15 mg/dl High Negative [facility] RBC Auto (Bld) [#/Vol]Ordere d By: Mellisa Cabrera on 03-10-2025 RBC (Bld) [#/Vol] 3.56 10*6/uL Low 4.2-5.4 [facility] Serum creatinine measurement (mass/volume)Ordered By: Mellisa Cabrera on 03-10-2025 Creatinine [Mass/Vol] 0.97 mg/dL 0.70-1.20 [facility] Serum glucose measurement (m ass/volume)Ordered By: Mellisa Cabrera on 03-10-2025 Glucose [Mass/Vol] 139 mg/dL High 70-99 [facility] Serum or plasma calcium loco urement (mass/volume)Ordered By: Mellisa Cabrera on 03-10-2025 Calcium [Mass/Vol] 9.1 mg/dL 7.6-11.0 [facility] Serum or plasma urea nitroge n measurement (mass/volume)Ordered By: Mellisa Cabrera on 03-10-2025 Urea nitrogen [Mass/Vol] 20 mg/dL High 4-19 [facility] Sodium levelOrdered By: Mellisa Cabrera on 03-10-2025 Sodium [Moles/Vol] 140 mmol/L 133-145 [facility] Squamous epithelial cells de tection in urine sediment by light microscopyOrdered By: Mellisa Cabrera on 03-10-2025 Epithelial cells.squamous LM Ql (Urine sed) 0 SEEN /hpf 5-10 [facility] Urinalysis, Completeon 03-10 WBC 0-5 SEEN Normal 0-5 [facility] Comment on above: Order Comment: COLLE CTOR TO SPECIFY Performed By: #### L 400.0001 ####[facility] [address] [place], [address] BACTERIA 0 SEEN Normal None Seen [facility] Comment on above: Order Comment: HUNTER CTOR TO SPECIFY Performed By: #### L 400.0001 ####[facility] [address] [place], [address] EPI,SQUAMOUS 0 SEEN Normal 5-10 [facility] Comment on above: Order Comment: HUNTER CTOR TO SPECIFY Performed By: #### L 400.0001 ####[facility] [address] [place], [address] Mucus Ql (Urine sed) 0 SEEN Normal [facility] Comment on above: Order Comment: HUNTER CTOR TO SPECIFY Performed By: #### L 400.0001 ####[facility] [address] [place], [address] RBC 0 SEEN Normal 0-5 [facility] Comment on above: Order Comment: HUNTER CTOR TO SPECIFY Performed By: #### L 400.0001 ####[facility] [address] [place], [address] Urine blood detectionOrdered By: Mellisa Cabrera on 03-10-2025 Urine Occult Blood Negative Negative [facility] Urine clarityOrdered By: Pastora Cabrera on 03-10-2025 Clarity (U) Clear Clear [facility] Urine color determinationOrd ered By: Mellisa Cabrera on 03-10-2025 Color (U) Yellow Yellow [facility] Urine glucose detectionOrder ed By: Mellisa Cabrera on 03-10-2025 Glucose Ql (U) Normal mg/dl Normal [facility] Urine leukocyte esterase det ection by dipstickOrdered By: Mellisa Cabrera on 03-10-2025 Leukocyte esterase Test strip Ql (U) 500 /ul High Negative [facility] Urine pHOrdered By: Mellisa peng on 03-10-2025 pH (U) 6.0 [pH] 5.0 - 8.0 [facility] Urine sediment bacteria coun t by microscopy (number/high power field)Ordered By: Mellisa Cabrera on 03-10-2025 Bacteria LM.HPF (Urine sed) [#/Area] 0 /[HPF] None Seen [facility] Urine specific gravity measu rementOrdered By: Mellisa Tinsleydanish on 03-10-2025 Specific gravity (U) [Rel density] 1.015 1.002-1.030 [facility] Urine urobilinogen measureme ntOrdered By: Mellisa Deborah on 03-10-2025 Urobilinogen Ql (U) Normal mg/dl Normal [facility] Urobilinogen Ql (U)Ordered B y: Mellisa Tinsleydanish on 03-10-2025 Urine Urobilinogen Normal mg/dl Normal [facility] White blood cell (WBC) count Ordered By: Mellisa Deborah on 03-10-2025 WBC (Bld) [#/Vol] 6.4 10*3/uL 4.4-11.0 [facility] White blood cell countOrdere d By: Mellisa Tinsleydanish on 03-10-2025 Urine WBC 0-5 SEEN /hpf 0-5 [facility] White blood cell count 0-5 SEEN /hpf 0-5 [facility] CNPNon 03-09-2025 CNPN Telephone (NRMDN) MANSI CARO ([id number]) 1955 F Date Time Provider Department 03/09/25 LEYLA MURPHY LAKIA During your visit today, we recorded the following information about you: Dipti Stewart 03/09/2025 12:16 PM Signed Spouse called inquiring status of RX for valbenazine (INGREZZA) 40 mg capsule. Informed Spouse that order was signed on 02/27/2025. Order has been faxed to [facility]: [phone]. Spouse provided phone number for pharmacy ([phone]) to follow up on this request. DiptiLeyla Nam MD 03/12/2025 7:42 AM Signed Notified by [facility] spec pharmacy [facility] is not on her formulary. Going to [...] and is willing to rechallenge [facility] RN Date Reviewed: 02/27/2025 Reviewed by: Leyla Murphy MD - Fully Assessed Reason for Visit: Orders [681] Cmt: valbenazine (INGREZZA) 40 mg capsule Order(s):deutetrabenaz ine XR (AUSTEDO XR) 6 mg tabletTake 1 tablet by mouth once daily.Disp: 30 tabletRfl: 5 Prescriptions as of 03/12/2025 - deutetrabenazine XR (AUSTEDO XR) 6 mg tablet Take 1 tablet by mouth once daily. - Acetaminophen 500 mg cap 500 mg. - albuterol sulfate 90 mcg/actuation aebs - oxyCODONE-acetaminophe n (PERCOCET) 5-325 mg tablet 1 TABLET ORAL [...] Encounter Status:Closed by DIPTI STEWART on 03/09/25 Normal [facility] Valerie 03-01-2025 CNPN Telephone (AKMRI) MANSI CARO ([id number]) 1955 F Date Time Provider Department 03/01/25 KALEN CASEY AKI During your visit today, we recorded the following information about you: Kalen Casey RT(R) 03/01/2025 3:28 PM Signed Kyra, You have ordered an MRI on this patient with an implanted cardiac device. To clear the patient, as per our policy, patient will need a 2 view CXR prior to MRI scan. CXR is used to confirm there are no broken or abandoned leads. Thank you, Kalen Hall(Bairon)(MR),[facility] MRI Safety Team Leyla Murphy MD 03/02/2025 [...] and is willing to rechallenge [facility] RN Date Reviewed: 02/27/2025 Reviewed by: Leyla Murphy MD - Fully Assessed Primary Visit Diagnosis:Presence of cardiac pacemaker [Z95.0] Order(s):XR CHEST 2V FRONTAL/LAT [6154801] Order #: [id number] FUTURE Prescriptions as of 03/02/2025 - Acetaminophen 500 mg cap 500 mg. - albuterol sulfate 90 mcg/actuation aebs - oxyCODONE-acetaminophe n (PERCOCET) 5-325 mg tablet 1 TABLET ORAL [...] Encounter Status:Closed by KALEN CASEY on 03/01/25 [facility] CNPN Telephone (AKMRI) MANSI CARO ([id number]) 1955 F Date Time Provider Department 03/01/25 [...] and is willing to rechallenge [facility] RN Date Reviewed: 02/27/2025 Reviewed by: Leyla Murphy MD - Fully Assessed Prescriptions as of 03/01/2025 - Acetaminophen 500 mg cap 500 mg. - albuterol sulfate 90 mcg/actuation aebs - oxyCODONE-acetaminophe n (PERCOCET) 5-325 mg tablet 1 TABLET ORAL [...] Encounter Status:Closed by KALEN CASEY on 03/01/25 [facility] CNOVdevon 02-27-2025 CNOV Office Visit (NRMDN) MANSI CARO ([id number]) 1955 F Date Time Provider Department 02/27/25 [...] daily for mouth movements; prescription sent to [facility]. Once this is controlled we [...] or you can send a message through [employer]. You can also now schedule and select appointments through [employer]. MD Jeffrey Marquez Kristin, MD 02/28/2025 9:12 AM Signed [facility] - FOLLOW UP EVALUATION The patient consented to the use of [address] software for draft documentation of the visit consistent with [facility]?s Notice of Privacy Practices. Jesus Manuel Freitas DO, DO [address] [facility] [address] Dear Jesus Manuel Freitas DO DO: I [...] that cannabis use during a visit to [place] temporarily alleviated her symptoms. She reports difficulty [...] activities: Yes (more content not included)... Normal [facility] Valerie 02-27-2025 NIRMALAN Telephone (NRMDN) GORDOMANSI Garrido ([id number]) 1955 F Date Time Provider Department 02/27/25 LEYLA MURPHY During your visit today, we recorded the following information about you: Dipti Stewart 02/27/2025 5:05 PM Addendum Patient's spouse reports that Patient has a [employer]P-D implant (Cardiac Resynchronization Therapy with Defibrillator). Per scheduling protocol, staff message forwarded to Imaging Implants pool to contact Patient for appointment coordination/schedulin g. Patient/Spouse will be contacted within 4 business days. Dipti Stewart Allergies As of Date: 02/27/2025 Noted Allergy Reaction LIPITOR (ATORVASTATIN CALCIUM) 04/03/2010 Comments: Heart racing; 07/04/10 patient states that she had started a lot of medication at this time and the she did not have a true allergic reaction and is willing to rechallenge [facility] RN Date Reviewed: 02/27/2025 Reviewed by: Leyla Murphy MD - Fully Assessed Reason for Visit: Appointment [186] Cmt: MRI Brain WO IVCON Prescriptions as of 02/27/2025 - Acetaminophen 500 mg cap 500 mg. - albuterol sulfate 90 mcg/actuation aebs - oxyCODONE-acetaminophe n (PERCOCET) 5-325 mg tablet 1 TABLET ORAL [...] Status:Closed by DIPTI STEWART on 02/27/25 Normal [facility] Gastroenterology Visit Repor ton 02-14-2025 Gastroenterology Visit Report Normal [facility] Stand In Office Visit Reporton 02-13-2025 Stand In Office Visit Report Normal [facility] 36on 01-28-2025 36 S: Patient's spoke [...] no questions the insurance didn't approve the Ciprofloxacin-dexameth asone suspension Neomycin -Polymyxin HC 4 drops into [...] to answer question Protocols used: Medication [facility] Erythropoietinon 01-24-2025 ERYTHROPOIETIN 10.1 mIU/mL Normal 2.6-18.5 [facility] Comment on above: Result Comment: [employer] DxI 800 Immunoassay SystemValues obtained with different assay methods or kits cannotbe used interchangeably. Results cannot be interpreted asabsolute evidence of the presence or absence of malignantdisease.Performed at: [facility] [place] [id number] Director: Bulmaro Nesbitt PhD, Phone: [phone] Performed By: #### L 500.2500, L100.9950, L3100.1350, L503.6030, L100.0100, L503.6550 ####[facility] [address] [place], [address] Oncology Visit Reporton Oncology Visit Report Normal [facility] Absolute lymphocyte countOrd ered By: Luigi Tinoco on 01-22-2025 Lymphocytes Auto (Unsp spec) [#/Vol] 2.11 10*3/uL 0.83-4.51 [facility] Absolute neutrophil countOrd ered By: Luigi Tinoco on 01-22-2025 Neutrophils (Bld) [#/Vol] 4.9 10*3/uL 2.0-7.7 [facility] Automated lymphocyte count a s percentage of total leukocytesOrdered By: Luigi Tinoco on 01-22-2025 Lymphocytes/100 WBC Auto (Unsp spec) 27.6 % 19-41 [facility] BUN/creatinine ratioOrdered By: Luigi Tinoco on 01-22-2025 Urea nitrogen/Creatinine [Mass ratio] 16.9 mg/mg 10-20 [facility] Basic Metabolic Profile (BMP )on 01-22-2025 Anion gap [Moles/Vol] 9 mmol/L Normal 5-15 [facility] Comment on above: Performed By: #### L 500.2500, L100.9950, L3100.1350, L503.6030, L100.0100, L503.6550 ####[facility] [address] [place], [address] BUN/CRE 16.9 RATIO Normal 10-20 [facility] Comment on above: Performed By: #### L 500.2500, L100.9950, L3100.1350, L503.6030, L100.0100, L503.6550 ####[facility] [address] [place], [address] Calcium [Mass/Vol] 9.1 mg/dL Normal 7.6-11.0 [facility] Comment on above: Performed By: #### L 500.2500, L100.9950, L3100.1350, L503.6030, L100.0100, L503.6550 ####[facility] [address] [place], [address] Chloride [Moles/Vol] 103 mmol/L Normal 96-108 [facility] Comment on above: Performed By: #### L 500.2500, L100.9950, L3100.1350, L503.6030, L100.0100, L503.6550 ####[facility] [address] [place], [address] CO2 [Moles/Vol] 27.6 mmol/L Normal 22.0-29.0 [facility] Comment on above: Performed By: #### L 500.2500, L100.9950, L3100.1350, L503.6030, L100.0100, L503.6550 ####[facility] [address] [place], [address] Creatinine [Mass/Vol] 1.17 mg/dL Normal 0.70-1.20 [facility] Comment on above: Performed By: #### L 500.2500, L100.9950, L3100.1350, L503.6030, L100.0100, L503.6550 ####[facility] [address] [place], [address] ECRCL 40.81 ml/min Low 50-250 [facility] Comment on above: Performed By: #### L 500.2500, L100.9950, L3100.1350, L503.6030, L100.0100, L503.6550 ####[facility] [address] [place], [address] GFR/1.73 sq M.predicted among non-blacks MDRD (S/P/Bld) [Vol rate/Area] 50 mL/min/{1.73_m2} Low >60 [facility] Comment on above: Result Comment: mL/m in/1.73m2 CKD-EPI Creatinine Equation (2020) Performed By: #### L 500.2500, L100.9950, L3100.1350, L503.6030, L100.0100, L503.6550 ####[facility] [address] [place], [address] Glucose [Mass/Vol] 207 mg/dL High 70-99 [facility] Comment on above: Performed By: #### L 500.2500, L100.9950, L3100.1350, L503.6030, L100.0100, L503.6550 ####[facility] [address] [place], [address] Potassium [Moles/Vol] 4.3 mmol/L Normal 3.3-5.1 [facility] Comment on above: Performed By: #### L 500.2500, L100.9950, L3100.1350, L503.6030, L100.0100, L503.6550 ####[facility] [address] [place], [address] Sodium [Moles/Vol] 140 mmol/L Normal 133-145 [facility] Comment on above: Performed By: #### L 500.2500, L100.9950, L3100.1350, L503.6030, L100.0100, L503.6550 ####[facility] [address] [place], [address] Urea nitrogen [Mass/Vol] 20 mg/dL High 4-19 [facility] Comment on above: Performed By: #### L 500.2500, L100.9950, L3100.1350, L503.6030, L100.0100, L503.6550 ####[facility] [address] [place], [address] Basophil percentageOrdered B y: Luigi Tinoco on 01-22-2025 Basophils/100 WBC (Bld) 0.5 % 0-[address] [facility] CBC W/Diff, Automatedon Absolute Lymph 2.11 X10 3/uL Normal 0.83-4.51 [facility] Comment on above: Performed By: #### L 500.2500, L100.9950, L3100.1350, L503.6030, L100.0100, L503.6550 ####[facility] [address] [place], [address] Absolute Neut 4.9 X10 3/uL Normal 2.0-7.7 [facility] Comment on above: Performed By: #### L 500.2500, L100.9950, L3100.1350, L503.6030, L100.0100, L503.6550 ####[facility] [address] [place], [address] Basophils/100 WBC (Bld) 0.5 % Normal 0-[address] [facility] Comment on above: Performed By: #### L 500.2500, L100.9950, L3100.1350, L503.6030, L100.0100, L503.6550 ####[facility] [address] [place], [address] Eosinophils/100 WBC (Bld) 1.3 % Normal 0-5 [facility] Comment on above: Performed By: #### L 500.2500, L100.9950, L3100.1350, L503.6030, L100.0100, L503.6550 ####[facility] [address] [place], [address] Erythrocyte distribution width (RBC) [Ratio] 12.5 % Normal 11.6-14.6 [facility] Comment on above: Performed By: #### L 500.2500, L100.9950, L3100.1350, L503.6030, L100.0100, L503.6550 ####[facility] [address] [place], [address] Hematocrit (Bld) [Volume fraction] 36.8 % Low 37-47 [facility] Comment on above: Performed By: #### L 500.2500, L100.9950, L3100.1350, L503.6030, L100.0100, L503.6550 ####[facility] [address] [place], [address] Hemoglobin (Bld) [Mass/Vol] 11.8 g/dL Low 12.0-15.0 [facility] Comment on above: Performed By: #### L 500.2500, L100.9950, L3100.1350, L503.6030, L100.0100, L503.6550 ####[facility] [address] [place], [address] IG% 0.400 Normal 0.0-0.9 [facility] Comment on above: Result Comment: IG% - Immature Granulocytes (promyelocytes, myelocytes andmetamyelocytes) > 1% indicates that a LEFT SHIFT is Present. Performed By: #### L 500.2500, L100.9950, L3100.1350, L503.6030, L100.0100, L503.6550 ####[facility] [address] [place], [address] Lymphocytes/100 WBC (Bld) 27.6 % Normal 19-41 [facility] Comment on above: Performed By: #### L 500.2500, L100.9950, L3100.1350, L503.6030, L100.0100, L503.6550 ####[facility] [address] [place], [address] MCH (RBC) [Entitic mass] 30.3 pg Normal 27.0-32.0 [facility] Comment on above: Performed By: #### L 500.2500, L100.9950, L3100.1350, L503.6030, L100.0100, L503.6550 ####[facility] [address] [place], [address] MCHC (RBC) [Mass/Vol] 32.1 g/dL Normal 32-36 [facility] Comment on above: Performed By: #### L 500.2500, L100.9950, L3100.1350, L503.6030, L100.0100, L503.6550 ####[facility] [address] [place], [address] MCV (RBC) [Entitic vol] 94.4 fL Normal 81-[address] [facility] Comment on above: Performed By: #### L 500.2500, L100.9950, L3100.1350, L503.6030, L100.0100, L503.6550 ####[facility] [address] [place], [address] Monocytes/100 WBC (Bld) 6.0 % Normal 0-[address] [facility] Comment on above: Performed By: #### L 500.2500, L100.9950, L3100.1350, L503.6030, L100.0100, L503.6550 ####[facility] [address] [place], [address] Neutrophils/100 WBC (Bld) 64.2 % Normal 47-70 [facility] Comment on above: Performed By: #### L 500.2500, L100.9950, L3100.1350, L503.6030, L100.0100, L503.6550 ####[facility] [address] [place], [address] Nucleated RBC (Bld) [#/Vol] 0 10*3/uL Normal 0-5 [facility] Comment on above: Performed By: #### L 500.2500, L100.9950, L3100.1350, L503.6030, L100.0100, L503.6550 ####[facility] [address] [place], [address] Platelet mean volume (Bld) [Entitic vol] 10.8 fL Normal 6.2-12.0 [facility] Comment on above: Performed By: #### L 500.2500, L100.9950, L3100.1350, L503.6030, L100.0100, L503.6550 ####[facility] [address] [place], [address] Platelets (Bld) [#/Vol] 143 10*3/uL Low 150-450 [facility] Comment on above: Performed By: #### L 500.2500, L100.9950, L3100.1350, L503.6030, L100.0100, L503.6550 ####[facility] [address] [place], [place], [id number]([phone] RBC (Bld) [#/Vol] 3.90 10*6/uL Low 4.2-5.4 [facility] Comment on above: Performed By: #### L 500.2500, L100.9950, L3100.1350, L503.6030, L100.0100, L503.6550 ####[facility] [address] [place], [address] RDW SD 43.6 fl Normal 35.1-43.9 [facility] Comment on above: Performed By: #### L 500.2500, L100.9950, L3100.1350, L503.6030, L100.0100, L503.6550 ####[facility] [address] [place], [place], [phone] WBC (Bld) [#/Vol] 7.7 10*3/uL Normal 4.4-11.0 [facility] Comment on above: Performed By: #### L 500.2500, L100.9950, L3100.1350, L503.6030, L100.0100, L503.6550 ####[facility] [address] [place], [place], [id number] Calculated total iron bindin g capacityOrdered By: Luigi Tinoco on 01-22-2025 Total Iron Binding Capacity 248 ug/dL Low 250-450 [facility] Carbon dioxide measurementOr dered By: Luigi Tinoco on 01-22-2025 CO2 [Moles/Vol] 27.6 mmol/L 22.0-29.0 [facility] Chloride measurementOrdered By: Luigi Tinoco on 01-22-2025 Chloride [Moles/Vol] 103 mmol/L 96-108 [facility] Eosinophil percentageOrdered By: Afiatamir Tinoco on 01-22-2025 Eosinophils/100 WBC (Bld) 1.3 % 0-5 [facility] Erythrocyte distribution wid th (RBC) [Ratio]Ordered By: [facility] Tinoco on 01-22-2025 Erythrocyte distribution width (RBC) [Entitic vol] 43.6 fL 35.1-43.9 [facility] Erythrocyte distribution wid th ratioOrdered By: [facility] Earnest on 01-22-2025 Erythrocyte distribution width (RBC) [Ratio] 12.5 % 11.6-14.6 [facility] Erythrocyte distribution wid th standard deviationOrdered By: [facility] Hospitalambroc[facility] on 01-22-2025 Erythrocyte distribution width (RBC) [Ratio] 43.6 fl 35.1-43.9 [facility] Erythropoietin (EPO) QnOrder ed By: [facility] Tinoco on 01-22-2025 Erythropoietin 10.1 mIU/mL 2.6-18.5 [facility] Comment on above: BookNow el DxI 800 Immunoassay SystemValues obtained with different assay methods or kits cannotbe used interchangeably. Results cannot be interpreted asabsolute evidence of the presence or absence of malignantdisease.Performed at: [facility] [place] [id number] Director: Bulmaro Nesbitt PhD, Phone: [phone] Estimation of creatinine julio cesar aranceOrdered By: Luigi Tinoco on 01-22-2025 Estimated Creatinine Clearance Calc 40.81 ml/min Low 50-250 [facility] Ferritinon 01-22-2025 Ferritin [Mass/Vol] 95 ng/mL Normal 22-378 [facility] Comment on above: Performed By: #### L 500.2500, L100.9950, L3100.1350, L503.6030, L100.0100, L503.6550 ####[facility] [address] [place], [address] GFR/1.73 sq M.predicted kwame g non-blacks MDRD (S/P/Bld) [Vol rate/Area]Ordered By: Luigi Tinoco on 01-22-2025 Estimated GFR (MDRD) Non-Af Amer 50 Low >60 [facility] Comment on above: mL/min/1.73m2 CKD-EP I Creatinine Equation (2020) Glomerular filtration rate ( GFR) estimation/1.73 sq m using serum, plasma, or whole bOrdered By: Luigi Tinoco on 01-22-2025 GFR/1.73 sq M.predicted among non-blacks MDRD (S/P/Bld) [Vol rate/Area] 50 mL/min/{1.73_m2} Low >60 [facility] Comment on above: mL/min/1.73m2 CKD-EP I Creatinine Equation (2020) Hematocrit Auto (Bld) [Volum e fraction]Ordered By: Luigi Tinoco on 01-22-2025 Hematocrit (Bld) [Volume fraction] 36.8 % Low 37-47 [facility] Hemoglobin (Reticulocytes) [ Entitic mass]Ordered By: Luigi Tinoco on 01-22-2025 Reticulocyte Hemoglobin Equivalent 35.1 pg High 30-35 [facility] Hemoglobin measurementOrdere d By: Luigi Tinoco on 01-22-2025 Hemoglobin (Bld) [Mass/Vol] 11.8 g/dL Low 12.0-15.0 [facility] Immature granulocytes/100 WB C Auto (Bld)Ordered By: Luigi Tinoco on 01-22-2025 Immature granulocytes/100 WBC (Bld) 0.400 % 0.0-0.9 [facility] Comment on above: IG% - Immature Granu locytes (promyelocytes, myelocytes and metamyelocytes) > 1% indicates that a LEFT SHIFT is Present. Immature reticulocyte fracti onOrdered By: Luigi Tinoco on 01-22-2025 Immature Reticulocyte Fraction 8.80 % 3.00-15.90 [facility] Iron (Unsp spec) [Mass/Mass] Ordered By: Luigi Tinoco on 01-22-2025 Iron [Mass/Vol] 74 ug/dL 50-170 [facility] Iron measurement (mass/mass) Ordered By: Luigi Tinoco on 01-22-2025 Iron (Unsp spec) [Mass/Mass] 74 ug/dL 50-170 [facility] Iron saturation [Mass fracti on]Ordered By: Luigi Tinoco on 01-22-2025 Iron Saturation 30.0 % 15.0-55.0 [facility] Iron+Iron Binding Capacityon 01-22-2025 Iron [Mass/Vol] 74 ug/dL Normal 50-170 [facility] Comment on above: Performed By: #### L 500.2500, L100.9950, L3100.1350, L503.6030, L100.0100, L503.6550 ####[facility] [address] [place], [address] IRON SATURATION 30.0 Normal 15.0-55.0 [facility] Comment on above: Performed By: #### L 500.2500, L100.9950, L3100.1350, L503.6030, L100.0100, L503.6550 ####[facility] [address] [place], [address] TIBC 248 ug/dL Low 250-450 [facility] Comment on above: Performed By: #### L 500.2500, L100.9950, L3100.1350, L503.6030, L100.0100, L503.6550 ####[facility] [address] [place], [address] UIBC 174 ug/dL Low 228-428 [facility] Comment on above: Performed By: #### L 500.2500, L100.9950, L3100.1350, L503.6030, L100.0100, L503.6550 ####[facility] [address] [place], [address] Lymphocytes Auto (Unsp spec) [#/Vol]Ordered By: Luigi Tinoco on 01-22-2025 Lymphocytes (Bld) [#/Vol] 2.11 10*3/uL 0.83-4.51 [facility] Lymphocytes/100 WBC Auto (Un sp spec)Ordered By: Luigi Tinoco on 01-22-2025 Lymphocytes/100 WBC (Bld) 27.6 % 19-41 [facility] MCV (mean corpuscular volume ) determinationOrdered By: Luigi Tinoco on 01-22-2025 MCV (RBC) [Entitic vol] 94.4 fL 81-99 [facility] Mean corpuscular hemoglobin (MCH) determinationOrdered By: Luigi Tinoco on 01-22-2025 MCH (RBC) [Entitic mass] 30.3 pg 27.0-32.0 [facility] Mean corpuscular hemoglobin concentration (MCHC) determinationOrdered By: Luigi Tinoco on 01-22-2025 MCHC (RBC) [Mass/Vol] 32.1 g/dL 32-36 [facility] Mean platelet volume determi nationOrdered By: Luigi Tinoco on 01-22-2025 Platelet mean volume (Bld) [Entitic vol] 10.8 fL 6.2-12.0 [facility] Monocyte percentageOrdered B y: Luigi Tinoco on 01-22-2025 Monocytes/100 WBC (Bld) 6.0 % 0-[address] [facility] Neutrophil percentageOrdered By: [facility] Tinoco on 01-22-2025 Neutrophils/100 WBC (Bld) 64.2 % 47-70 [facility] No Panel InformationOrdered By: Luigi Tinoco on 01-22-2025 Unsaturated Iron Binding Capacity 174 ug/dL Low 228-428 [facility] 174 ug/dL Low 228-428 [facility] Nucleated red blood cell per centageOrdered By: Luigi Tinoco on 01-22-2025 Nucleated RBC/100 WBC (Bld) [Ratio] 0 % 0-5 [facility] Platelet countOrdered By: Chase Tinoco on 01-22-2025 Platelets (Bld) [#/Vol] 143 10*3/uL Low 150-450 [facility] RBC Auto (Bld) [#/Vol]Ordere d By: Luigi Tinoco on 01-22-2025 RBC (Bld) [#/Vol] 3.90 10*6/uL Low 4.2-5.4 [facility] Retic Panelon 01-22-2025 IM RET FRACTION 8.80 Normal 3.00-15.90 [facility] Comment on above: Performed By: #### L 500.2500, L100.9950, L3100.1350, L503.6030, L100.0100, L503.6550 ####[facility] [address] [place], [address] RET-HE 35.1 pg High 30-35 [facility] Comment on above: Performed By: #### L 500.2500, L100.9950, L3100.1350, L503.6030, L100.0100, L503.6550 ####[facility] [address] [place], [address] Retic Count 1.22 Normal 0.5-1.5 [facility] Comment on above: Performed By: #### L 500.2500, L100.9950, L3100.1350, L503.6030, L100.0100, L503.6550 ####[facility] [address] [place], [address] Reticulocyte hemoglobin equi valent (RET-He) measurementOrdered By: Luigi Tinoco on 01-22-2025 Hemoglobin (Reticulocytes) [Entitic mass] 35.1 pg High 30-35 [facility] Reticulocytes Auto (Bld) [#/ Vol]Ordered By: Luigi Tinoco on 01-22-2025 Reticulocyte Count 1.22 % 0.5-1.5 [facility] Reticulocytes/100 RBC (Bld) 1.22 % 0.5-1.5 [facility] Serum creatinine measurement (mass/volume)Ordered By: Luigi Tinoco on 01-22-2025 Creatinine [Mass/Vol] 1.17 mg/dL 0.70-1.20 [facility] Serum glucose measurement (m ass/volume)Ordered By: Luigi Tinoco on 01-22-2025 Glucose [Mass/Vol] 207 mg/dL High 70-99 [facility] Serum or plasma anion gap de termination (moles/volume)Ordered By: Luigi Tinoco on 01-22-2025 Anion gap [Moles/Vol] 9 mmol/L 5-15 [facility] Serum or plasma calcium olco urement (mass/volume)Ordered By: Luigi Tinoco on 01-22-2025 Calcium [Mass/Vol] 9.1 mg/dL 7.6-11.0 [facility] Serum or plasma erythropoiet in (EPO) measurement (units/volume)Ordered By: Luigi Tinoco on 01-22-2025 Erythropoietin (EPO) Qn 10.1 mIU/mL 2.6-18.5 [facility] Comment on above: BookNow el DxI 800 Immunoassay SystemValues obtained with different assay methods or kits cannotbe used interchangeably. Results cannot be interpreted asabsolute evidence of the presence or absence of malignantdisease.Performed at: [facility] [id number] Director: Bulmaro Nesbitt PhD, Phone: [phone] Serum or plasma ferritin donald surement (mass/volume)Ordered By: Luigi Tinoco on 01-22-2025 Ferritin [Mass/Vol] 95 ng/mL 22-378 [facility] Serum or plasma iron saturat ion measurement (mass fraction)Ordered By: Luigi Tinoco on 01-22-2025 Iron saturation [Mass fraction] 30.0 % 15.0-55.0 [facility] Serum or plasma potassium me asurementOrdered By: Luigi Tinoco on 01-22-2025 Potassium [Moles/Vol] 4.3 mmol/L 3.3-5.1 [facility] Serum or plasma sodium measu rement (moles/volume)Ordered By: Luigi Tinoco on 01-22-2025 Sodium [Moles/Vol] 140 mmol/L 133-145 [facility] Serum or plasma urea nitroge n measurement (mass/volume)Ordered By: Luigi Tinoco on 01-22-2025 Urea nitrogen [Mass/Vol] 20 mg/dL High 4-19 [facility] White blood cell (WBC) count Ordered By: Luigi Tinoco on 01-22-2025 WBC (Bld) [#/Vol] 7.7 10*3/uL 4.4-11.0 [facility] CNPN Telephone (NRMDN) MANSI CARO ([id number]) 1955 F Date Time Provider Department 01/19/25 LEYAL MURPHY During your visit today, we recorded [...] has been notified of appt change via [employer] message. Dipti Stewart Allergies As of Date: 01/19/2025 Noted Allergy Reaction LIPITOR (ATORVASTATIN CALCIUM) 04/03/2010 Comments: Heart racing; 07/04/10 patient states that she had started a lot of medication at this time and the she did not have a true allergic reaction and is willing to rechallenge [facility] RN Date Reviewed: 05/17/2024 Reviewed by: Yadira [...] Status:Closed by DIPTI STEWART on 01/19/25 Normal [facility] CT CHEST WO IVCONon 01-19-[address] CHEST WO IVCON * * *Final Report* * * DATE OF EXAM: Jan 19 2025 10:24AM [facility] 0541 - CT CHEST WO IVCON / [...] significantly enlarged lymph nodes in the chest. Marketing Technology Specialist: MARC Transcribe Date/Time: Jan 23 2025 7:44P Dictated by : MARIANELA WILSON MD This examination was interpreted and the report reviewed and electronically signed by: MARIANELA WILSON MD on Jan 23 2025 7:49PM EST [id number] Normal [facility] Cardiology Visit Reporton Cardiology Visit Report Normal [facility] MRA Neck WITH and W/O Contra ston 12-22-2024 MRA Neck WITH and W/O Contrast Normal [facility] Pelvic (Non )on 11-24 Pelvic (Non ) Normal [facility] Calprotectin, Stoolon [address] 190 ug/g Abnormal 0-120 [facility] Comment on above: Result Comment: Conc entration Interpretation Follow-Up< 5 - 50 ug/g Normal None>50 -120 ug/g Borderline Re-evaluate in 4-6 weeks >120 ug/g Abnormal Repeat as clinically indicatedPerformed at: [employer] [id number] Director: Stanton Vargas MD, Phone: [phone] Performed By: #### L 7000.0700, L7000.0750 ####[facility] [address], [place], [id number] MR/BMS.BVSon 12-19-2024 MR/BMS.BVS Normal [facility] L7000.0750on 12-18-2024 P ELASTASE,FECA 416 Normal >200 [facility] Comment on above: Result Comment: Resu lt Units: ug Elast./g Severe Pancreatic Insufficiency: <100 Moderate Pancreatic Insufficiency: 100 - 200 Normal: >200Performed at: [employer] [id number] Director: Stanton Vargas MD, Phone: [phone] Performed By: #### L 7000.0700, L7000.0750 ####[facility] [address] [place], [address] 36on 12-16-2024 36 S: Patient spoke solomon h [facility] nurse regarding abdominal pain B: Onset of symptoms/concern few months A: Patient's concerned about 05/31 constant lower abdominal pain. He advises she was dx with ischemic colitis in June. They deny fever, deny n/v/d, deny constipation. He advises oxycodone worked but GI will not give them anymore. MRA scheduled first week of Dec. He states they saw an DUTY OFFICER earlier this week who recommended pain mgmt. Bentyl and hyoscyamine sulfate are not helping. R: Paged on-call provider Dr. De Luna who advises "Dr Lopez filled her Percocet prescription recently and it doesn't appear that anyone else has per her PDMP report. I will send a refill to her pharmacy but if symptoms worsen then ER is where she needs to go. She has follow up in the office 2/3 so I would recommend making the Percocet last until she is seen." Patient's understands care advice. No further needs at this time. Patient's instructed to call back with new or worsening symptoms. Reason for Disposition [1] MILD-MODERATE pain AND [2] constant AND [3] present > 2 hours Answer Assessment - Initial Assessment Questions 1. LOCATION: "Where does it hurt?" Lower abdomen, below belly button 2. RADIATION: "Does the pain shoot anywhere else?" (e.g., chest, back) no 3. ONSET: "When did the pain begin?" (e.g., minutes, hours or days ago) Few months ago 4. SUDDEN: "Gradual or sudden onset?" Sudden onset 5. PATTERN "Does the pain come and go, or is it constant?" Constant 6. SEVERITY: "How bad is the pain?" (e.g., Scale 1-10; mild, moderate, or severe) 05/31 7. RECURRENT SYMPTOM: Have you ever had this type of stomach pain before?" If Yes, ask: "When was the last time?" and What happened that time?" no 8. CAUSE: "What do you think is causing the stomach pain?" They do not know, hospital in June with ischemic colitis, diverticulitis 9. RELIEVING/AGGRAVATING FACTORS: "What makes it better or worse?" (e.g., antacids, bending or twisting motion, bowel movement) Nothing helps 10. OTHER SYMPTOMS: Do you have any other symptoms?" (e.g., back pain, diarrhea, fever, urination pain, vomiting) Denies n/v/d, denies dysuria 11. : "Is there any chance you are ?" "When was your last menstrual period?" no Protocols used: Abdominal Pain - ADULT-[facility] Calprotectin stoolOrdered By : Rosa Rodriguez on 12-15-2024 Calprotectin stool 190 ug/g High 0-120 [facility] Comment on above: Concentration Interp retation Follow-Up< 5 - 50 ug/g Normal None>50 -120 ug/g Borderline Re-evaluate in 4-6 weeks >120 ug/g Abnormal Repeat as clinically indicatedPerformed at: [facility] [place] [id number] Director: Stanton Vargas MD, Phone: [phone] Stool Calprotectin 190 ug/g High 0-120 [facility] Comment on above: Concentration Interp retation Follow-Up< 5 - 50 ug/g Normal None>50 -120 ug/g Borderline Re-evaluate in 4-6 weeks >120 ug/g Abnormal Repeat as clinically indicatedPerformed at: [employer] [place] [id number] Director: Stanton Vargas MD, Phone: [phone] Elastase.pancreatic (Stl) [M ass/Mass]Ordered By: Rosa Rodriguez on 12-15-2024 Stool Pancreatic Elastase 416 >200 [facility] Comment on above: Result Units: ug Stephanie st./g Severe Pancreatic Insufficiency: <100 Moderate Pancreatic Insufficiency: 100 - 200 Normal: >200Performed at: [employer] [place] [id number] Director: Stanton Vargas MD, Phone: [phone] Stool pancreatic elastase me asurement (mass/mass)Ordered By: Rosa Rodriguez on 12-15-2024 Elastase.pancreatic (Stl) [Mass/Mass] 416 >200 [facility] Comment on above: Result Units: ug Stephanie st./g Severe Pancreatic Insufficiency: <100 Moderate Pancreatic Insufficiency: 100 - 200 Normal: >200Performed at: [facility] [id number] Director: Stanton Vargas MD, Phone: [phone] No Panel Informationon 12-13 [facility] Gastroenterology Visit Repor ton 12-12-2024 Gastroenterology Visit Report Normal [facility] Cardiology Visit Reporton Cardiology Visit Report Normal [facility] 36on 11-24-2024 36 Name of caller: Beatrice lobo Contact phone number: [phone] Relationship to Patient: spouse/SO Provider: John Practice: [facility] [place], operated by [facility] Chief Complaint/Reason for Call: Patient , Beatrice, is calling to follow up with Dr. Lopez after patient appointment with her Gasteoenterologist. He is requesting a call back to discuss what happened at her appointment regarding her colitis diagnosis. He can be reached at [phone]. Best time of day caller can be reached: Any Patient advised that office/PCP has 24-48 business hours to return their call: N/A Normal [facility] Gastroenterology Visit Repor ton 11-23-2024 Gastroenterology Visit Report Normal [facility] Abdomen/Pelvis W IV Cont ONL Yon 11-18-2024 Abdomen/Pelvis W IV Cont ONLY Normal [facility] Absolute neutrophil countOrd ered By: Breann East on 11-18-2024 Neutrophils (Bld) [#/Vol] 3.3 10*3/uL 2.0-7.7 [facility] Albumin to globulin ratioOrd ered By: Breann East on 11-18-2024 Albumin/Globulin [Mass ratio] 0.9 {ratio} 0.9-2.4 [facility] Basophil percentageOrdered B y: Breann East on 11-18-2024 Basophils/100 WBC (Bld) 0.4 % 0-[address] [facility] Bilirubin Test strip Ql (U)O rdered By: Breann East on 11-18-2024 Bilirubin Ql (U) Negative Negative [facility] Bilirubin, totalOrdered By: Breann East on 11-18-2024 Bilirubin [Mass/Vol] 0.30 mg/dL 0.20-1.00 [facility] Comment on above: For patients on eltr ombopag therapy, use of Dimension [place] TBIL is not recommended. Blood urea nitrogen (BUN)/cr eatinine ratioOrdered By: Breann East on 11-18-2024 Urea nitrogen/Creatinine [Mass ratio] 26.5 mg/mg High 10-20 [facility] CBC W/Diff, Automatedon 10-23 Absolute Lymph 2.93 X10 3/uL Normal 0.83-4.51 [facility] Comment on above: Performed By: #### L 100.0100, L500.4050, L501.2450 ####[facility] [address] [place], [address] Absolute Neut 3.3 X10 3/uL Normal 2.0-7.7 [facility] Comment on above: Performed By: #### L 100.0100, L500.4050, L501.2450 ####[facility] [address] [place], [address] Basophils/100 WBC (Bld) 0.4 % Normal 0-[address] [facility] Comment on above: Performed By: #### L 100.0100, L500.4050, L501.2450 ####[facility] [address] [place], [address] Eosinophils/100 WBC (Bld) 2.0 % Normal 0-5 [facility] Comment on above: Performed By: #### L 100.0100, L500.4050, L501.2450 ####[facility] [address] [place], [address] Erythrocyte distribution width (RBC) [Ratio] 13.8 % Normal 11.6-14.6 [facility] Comment on above: Performed By: #### L 100.0100, L500.4050, L501.2450 ####[facility] [address] [place], [address] Hematocrit (Bld) [Volume fraction] 39.2 % Normal 37-47 [facility] Comment on above: Performed By: #### L 100.0100, L500.4050, L501.2450 ####[facility] [address] [place], [address] Hemoglobin (Bld) [Mass/Vol] 12.7 g/dL Normal 12.0-15.0 [facility] Comment on above: Performed By: #### L 100.0100, L500.4050, L501.2450 ####[facility] [address] [place], [address] IG% 0.100 Normal 0.0-0.9 [facility] Comment on above: Result Comment: IG% - Immature Granulocytes (promyelocytes, myelocytes andmetamyelocytes) > 1% indicates that a LEFT SHIFT is Present. Performed By: #### L 100.0100, L500.4050, L501.2450 ####[facility] [address] [place], [address] Lymphocytes/100 WBC (Bld) 42.7 % High 19-41 [facility] Comment on above: Performed By: #### L 100.0100, L500.4050, L501.2450 ####[facility] [address] [place], [address] MCH (RBC) [Entitic mass] 30.2 pg Normal 27.0-32.0 [facility] Comment on above: Performed By: #### L 100.0100, L500.4050, L501.2450 ####[facility] [address] [place], [address] MCHC (RBC) [Mass/Vol] 32.4 g/dL Normal 32-36 [facility] Comment on above: Performed By: #### L 100.0100, L500.4050, L501.2450 ####[facility] [address] [place], [address] MCV (RBC) [Entitic vol] 93.3 fL Normal 81-99 [facility] Comment on above: Performed By: #### L 100.0100, L500.4050, L501.2450 ####[facility] [address] [place], [address] Monocytes/100 WBC (Bld) 6.7 % Normal 0-10 [facility] Comment on above: Performed By: #### L 100.0100, L500.4050, L501.2450 ####[facility] [address] [place], [address] Neutrophils/100 WBC (Bld) 48.1 % Normal 47-70 [facility] Comment on above: Performed By: #### L 100.0100, L500.4050, L501.2450 ####[facility] [address] [place], [address] Nucleated RBC (Bld) [#/Vol] 0 10*3/uL Normal 0-5 [facility] Comment on above: Performed By: #### L 100.0100, L500.4050, L501.2450 ####[facility] [address] [place], [address] Platelet mean volume (Bld) [Entitic vol] 11.7 fL Normal 6.2-12.0 [facility] Comment on above: Performed By: #### L 100.0100, L500.4050, L501.2450 ####[facility] [address] [place], [address] Platelets (Bld) [#/Vol] 153 10*3/uL Normal 150-450 [facility] Comment on above: Performed By: #### L 100.0100, L500.4050, L501.2450 ####[facility] [address] [place], [address] RBC (Bld) [#/Vol] 4.20 10*6/uL Normal 4.2-5.4 [facility] Comment on above: Performed By: #### L 100.0100, L500.4050, L501.2450 ####[facility] [address] [place], [address] RDW SD 47.0 fl High 35.1-43.9 [facility] Comment on above: Performed By: #### L 100.0100, L500.4050, L501.2450 ####[facility] [address] [place], [address] WBC (Bld) [#/Vol] 6.9 10*3/uL Normal 4.4-11.0 [facility] Comment on above: Performed By: #### L 100.0100, L500.4050, L501.2450 ####[facility] [address] [place], [address] Carbon dioxide measurementOr dered By: Breann East on 11-18-2024 CO2 [Moles/Vol] 29.0 mmol/L 21.0-32.0 [facility] Chloride measurementOrdered By: Breann East on 11-18-2024 Chloride [Moles/Vol] 107 mmol/L 98-107 [facility] Comprehensive Metabolic Prof ilon 11-18-2024 Albumin [Mass/Vol] 3.6 g/dL Normal 3.2-5.0 [facility] Comment on above: Performed By: #### L 100.0100, L500.4050, L501.2450 ####[facility] [address] [place], [address] Albumin/Globulin [Mass ratio] 0.9 {ratio} Normal 0.9-2.4 [facility] Comment on above: Performed By: #### L 100.0100, L500.4050, L501.2450 ####[facility] [address] [place], [address] ALK P 52 U/L Normal 45-117 [facility] Comment on above: Performed By: #### L 100.0100, L500.4050, L501.2450 ####[facility] [address] [place], [address] ALT [Catalytic activity/Vol] 21 U/L Normal 13-56 [facility] Comment on above: Performed By: #### L 100.0100, L500.4050, L501.2450 ####[facility] [address] [place], [address] AST [Catalytic activity/Vol] 19 U/L Normal 15-37 [facility] Comment on above: Performed By: #### L 100.0100, L500.4050, L501.2450 ####[facility] [address] [place], [address] Bilirubin [Mass/Vol] 0.30 mg/dL Normal 0.20-1.00 [facility] Comment on above: Result Comment: For patients on eltrombopag therapy, use of Dimension [place] TBIL is not recommended. Performed By: #### L 100.0100, L500.4050, L501.2450 ####[facility] [address] [place], [address] BUN/CRE 26.5 RATIO High 10-20 [facility] Comment on above: Performed By: #### L 100.0100, L500.4050, L501.2450 ####[facility] [address] [place], [address] CA,Total 9.2 mg/dL Normal 8.5-10.1 [facility] Comment on above: Performed By: #### L 100.0100, L500.4050, L501.2450 ####[facility] [address] [place], [address] Chloride [Moles/Vol] 107 mmol/L Normal 98-107 [facility] Comment on above: Performed By: #### L 100.0100, L500.4050, L501.2450 ####[facility] [address] [place], [address] CO2 [Moles/Vol] 29.0 mmol/L Normal 21.0-32.0 [facility] Comment on above: Performed By: #### L 100.0100, L500.4050, L501.2450 ####[facility] [address] [place], [address] Creatinine [Mass/Vol] 1.02 mg/dL Normal 0.55-1.02 [facility] Comment on above: Result Comment: The validity of the calculated GFR GFRAA in patients over70 years has not been determined. Clinical correlation isessential. Performed By: #### L 100.0100, L500.4050, L501.2450 ####[facility] [address] [place], [address] EST GFR - AA 69 mL/min Normal >60 [facility] Comment on above: Result Comment: Afri can [place] GFR Calc Performed By: #### L 100.0100, L500.4050, L501.2450 ####[facility] [address] [place], [address] GAP 3 Low 5-15 [facility] Comment on above: Performed By: #### L 100.0100, L500.4050, L501.2450 ####[facility] [address] [place], [address] GFR/1.73 sq M.predicted among non-blacks MDRD (S/P/Bld) [Vol rate/Area] 57 mL/min/{1.73_m2} Low >60 [facility] Comment on above: Result Comment: Non- GFR Calc Performed By: #### L 100.0100, L500.4050, L501.2450 ####[facility] [address] [place], [address] Globulin (S) [Mass/Vol] 3.8 g/dL Normal 2.2-4.[address] [facility] Comment on above: Performed By: #### L 100.0100, L500.4050, L501.2450 ####[facility] [address] [place], [address] Glucose [Mass/Vol] 209 mg/dL High 74-106 [facility] Comment on above: Result Comment: Gluc ose result greater than or equal to 200 mg/dLsuggests DIABETES MELLITUS per A.D.A. criteria. Performed By: #### L 100.0100, L500.4050, L501.2450 ####[facility] [address] [place], [address] Potassium [Moles/Vol] 4.4 mmol/L Normal 3.5-5.1 [facility] Comment on above: Performed By: #### L 100.0100, L500.4050, L501.2450 ####[facility] [address] [place], [address] Sodium [Moles/Vol] 138 mmol/L Normal 136-145 [facility] Comment on above: Performed By: #### L 100.0100, L500.4050, L501.2450 ####[facility] [address] [place], [address] T PROT 7.4 g/dL Normal 6.4-8.2 [facility] Comment on above: Performed By: #### L 100.0100, L500.4050, L501.2450 ####[facility] [address] [place], [address] Urea nitrogen [Mass/Vol] 27 mg/dL High 7-18 [facility] Comment on above: Performed By: #### L 100.0100, L500.4050, L501.2450 ####[facility] [address] [place], [address] Emergency Department Summary on 11-18-2024 Emergency Department Summary Normal [facility] Eosinophil percentageOrdered By: Breann East on 11-18-2024 Eosinophils/100 WBC (Bld) 2.0 % 0-5 [facility] Epithelial cells.squamous LM Ql (Urine sed)Ordered By: Breann East on 11-18-2024 Epithelial cells.squamous LM.HPF (Urine sed) [#/Area] 0 /[HPF] 5-10 [facility] Erythrocyte distribution wid th (RBC) [Ratio]Ordered By: Breann East on 11-18-2024 Erythrocyte distribution width (RBC) [Entitic vol] 47.0 fL High 35.1-43.9 [facility] Erythrocyte distribution wid th ratioOrdered By: Breann East on 11-18-2024 Erythrocyte distribution width (RBC) [Ratio] 13.8 % 11.6-14.6 [facility] Estimated glomerular filtrat ion rate (GFR) AmericanOrdered By: Breann East on 11-18-2024 Estimated GFR (MDRD) Amer 69 mL/min >60 [facility] Comment on above: GFR Calc Glomerular filtration rate ( GFR) estimationOrdered By: Breann East on 11-18-2024 Estimated GFR (MDRD) Non-Af Amer 57 mL/min Low >60 [facility] Comment on above: Non- GFR Calc Glucose Ql (U)Ordered By: Tanya East on 11-18-2024 Glucose (U) [Mass/Vol] 1000 mg/dL High Normal [facility] Glucose measurementOrdered B y: Breann East on 11-18-2024 Glucose [Mass/Vol] 209 mg/dL High 74-106 [facility] Comment on above: Glucose result great er than or equal to 200 mg/dLsuggests DIABETES MELLITUS per A.D.A. criteria. Hematocrit Auto (Bld) [Volum e fraction]Ordered By: Breann East on 11-18-2024 Hematocrit (Bld) [Volume fraction] 39.2 % 37-47 [facility] Hemoglobin measurementOrdere d By: Breann East on 11-18-2024 Hemoglobin (Bld) [Mass/Vol] 12.7 g/dL 12.0-15.0 [facility] Immature granulocytes/100 WB C Auto (Bld)Ordered By: Breann East on 11-18-2024 Immature granulocytes/100 WBC (Bld) 0.100 % 0.0-0.9 [facility] Comment on above: IG% - Immature Granu locytes (promyelocytes, myelocytes and metamyelocytes) > 1% indicates that a LEFT SHIFT is Present. Ketones Test strip Ql (U)Ord ered By: Breann East on 11-18-2024 Ketones Ql (U) Negative Negative [facility] Laboratory - Chemistry and C hemistry - challengeOrdered By: Breann East on 11-18-2024 AST [Catalytic activity/Vol] 19 U/L 15-37 [facility] Lipaseon 11-18-2024 Lipase [Catalytic activity/Vol] 49 U/L Normal [facility] Comment on above: Result Comment: Josy fay note:LIPASE revised reference range effective 23.New Lipase methodology. Expected to produce lower valuesthan the previous assay method.NEW Reference Range: 13 - 75 U/L Performed By: #### L 100.0100, L500.4050, L501.2450 ####[facility] [address] [place], [address] Lipase measurementOrdered By : Breann East on 11-18-2024 Lipase [Catalytic activity/Vol] 49 U/L - [facility] Comment on above: Please note:LIPASE r evised reference range effective 23. New Lipase methodology. Expected to produce lower values than the previous assay method. NEW Reference Range: 13 - 75 U/L Lymphocytes Auto (Unsp spec) [#/Vol]Ordered By: Breann East on 11-18-2024 Lymphocytes (Bld) [#/Vol] 2.93 10*3/uL 0.83-4.51 [facility] Lymphocytes/100 WBC Auto (Un sp spec)Ordered By: Breann East on 11-18-2024 Lymphocytes/100 WBC (Bld) 42.7 % High 19-41 [facility] MCV (mean corpuscular volume ) determinationOrdered By: Breann East on 11-18-2024 MCV (RBC) [Entitic vol] 93.3 fL 81-[address] [facility] Mean corpuscular hemoglobin (MCH) determinationOrdered By: Breann East on 11-18-2024 MCH (RBC) [Entitic mass] 30.2 pg 27.0-32.0 [facility] Mean corpuscular hemoglobin concentration (MCHC) determinationOrdered By: Breann East on 11-18-2024 MCHC (RBC) [Mass/Vol] 32.4 g/dL 32-36 [facility] Mean platelet volume determi nationOrdered By: Breann East on 11-18-2024 Platelet mean volume (Bld) [Entitic vol] 11.7 fL 6.2-12.0 [facility] Microscopic analysis of urin e for red blood cells (RBC)Ordered By: Breann East on 11-18-2024 Urine RBC 0-5 SEEN /hpf 0-5 [facility] Monocyte percentageOrdered B y: Breann East on 11-18-2024 Monocytes/100 WBC (Bld) 6.7 % 0-[address] [facility] Mucus LM Ql (Urine sed)Order ed By: Breann East on 11-18-2024 Mucus Ql (Urine sed) 0 SEEN /hpf [facility] Neutrophil percentageOrdered By: Breann East on 11-18-2024 Neutrophils/100 WBC (Bld) 48.1 % 47-70 [facility] Nitrite Test strip Ql (U)Ord ered By: Breann East on 11-18-2024 Nitrite Ql (U) Negative Negative [facility] Nucleated red blood cell per centageOrdered By: Breann East on 11-18-2024 Nucleated RBC/100 WBC (Bld) [Ratio] 0 % 0-5 [facility] Platelet countOrdered By: Tanya East on 11-18-2024 Platelets (Bld) [#/Vol] 153 10*3/uL 150-450 [facility] Potassium measurementOrdered By: Breann East on 11-18-2024 Potassium [Moles/Vol] 4.4 mmol/L 3.5-5.1 [facility] Protein Test strip Ql (U)Ord ered By: Breann East on 11-18-2024 Protein Ql (U) Negative Negative [facility] RBC Auto (Bld) [#/Vol]Ordere d By: Breann East on 11-18-2024 RBC (Bld) [#/Vol] 4.20 10*6/uL 4.2-5.4 [facility] Serum anion gap measurementO rdered By: Breann East on 11-18-2024 Anion gap [Moles/Vol] 3 mmol/L Low 5-15 [facility] Serum globulin measurementOr dered By: Breann East on 11-18-2024 Globulin (S) [Mass/Vol] 3.8 g/dL 2.2-4.[address] [facility] Serum or plasma alanine cisneros otransferase (ALT) measurementOrdered By: Breann East on 11-18-2024 ALT [Catalytic activity/Vol] 21 U/L 13-56 [facility] Serum or plasma albumin loco urement (mass/volume)Ordered By: Breann East on 11-18-2024 Albumin [Mass/Vol] 3.6 g/dL 3.2-5.0 [facility] Serum or plasma alkaline sergio sphatase measurementOrdered By: Breann East on 11-18-2024 ALP [Catalytic activity/Vol] 52 U/L 45-117 [facility] Serum or plasma calcium loco urement (mass/volume)Ordered By: Breann East on 11-18-2024 Calcium [Mass/Vol] 9.2 mg/dL 8.5-10.1 [facility] Serum or plasma creatinine m easurement (mass/volume)Ordered By: Breann East on 11-18-2024 Creatinine [Mass/Vol] 1.02 mg/dL 0.55-1.02 [facility] Comment on above: The validity of the calculated GFR & GFRAA in patients over 70 years has not been determined. Clinical correlation is essential. Serum or plasma urea nitroge n measurement (mass/volume)Ordered By: Breann East on 11-18-2024 Urea nitrogen [Mass/Vol] 27 mg/dL High 7-18 [facility] Sodium levelOrdered By: Celestino East on 11-18-2024 Sodium [Moles/Vol] 138 mmol/L 136-145 [facility] Total proteinOrdered By: Chaz East on 11-18-2024 Protein [Mass/Vol] 7.4 g/dL 6.4-8.2 [facility] Transitional cells LM Ql (Ur ine sed)Ordered By: Breann East on 11-18-2024 Urine Transitional Epithelial Cells 0-5 SEEN /hpf 0-5 [facility] Urinalysis, Completeon 11-18 EPI,SQUAMOUS 0-5 SEEN Normal 5-10 [facility] Comment on above: Order Comment: CLEAN CATCH Performed By: #### L 400.0001 ####[facility] [address] [place], [place], [address] EPI,TRANSITION 0-5 SEEN Normal 0-5 [facility] Comment on above: Order Comment: CLEAN CATCH Performed By: #### L 400.0001 ####[facility] [address] [place], [address] WBC 0-5 SEEN Normal 0-5 [facility] Comment on above: Order Comment: CLEAN CATCH Performed By: #### L 400.0001 ####[facility] [address] [place], [place], [id number] BACTERIA 1+ /hpf Normal None Seen [facility] Comment on above: Order Comment: CLEAN CATCH Performed By: #### L 400.0001 ####[facility] [address] [place], [address] RBC 0-5 SEEN Normal 0-5 [facility] Comment on above: Order Comment: CLEAN CATCH Performed By: #### L 400.0001 ####[facility] [address] [place], [address] Mucus Ql (Urine sed) 0 SEEN Normal [facility] Comment on above: Order Comment: CLEAN CATCH Performed By: #### L 400.0001 ####[facility] [address] [place], [address] Urinalysis, Routine (Dipstic k)on 11-18-2024 BILIRUBIN URINE Normal Negative [facility] Comment on above: Order Comment: CLEAN CATCH Result Comment: Canc elled via OM: MD Ordered Performed By: #### L 400.2010 ####[facility] [address] [place], [address] Clarity (U) Normal Clear [facility] Comment on above: Order Comment: CLEAN CATCH Result Comment: Canc elled via OM: MD Ordered Performed By: #### L 400.2010 ####[facility] [address] [place], [address] Color (U) Normal Yellow [facility] Comment on above: Order Comment: CLEAN CATCH Result Comment: Lowellc elled via OM: Ordered Performed By: #### L 400.2010 ####[facility] [address] [place], [address] GLUCOSE, UR Normal Normal [facility] Comment on above: Order Comment: CLEAN CATCH Result Comment: Canc elled via OM: MD Ordered Performed By: #### L 400.2010 ####[facility] [address] [place], [address] KETONE UR Normal Negative [facility] Comment on above: Order Comment: CLEAN CATCH Result Comment: Canc elled via OM: MD Ordered Performed By: #### L 400.2010 ####[facility] [address] [place], [address] LEUK ESTERASE Normal Negative [facility] Comment on above: Order Comment: CLEAN CATCH Result Comment: Canc elled via OM: MD Ordered Performed By: #### L 400.2010 ####[facility] [address] [place], [address] Nitrite Ql (U) Normal Negative [facility] Comment on above: Order Comment: CLEAN CATCH Result Comment: Canc elled via OM: MD Ordered Performed By: #### L 400.2010 ####[facility] [address] [place], [address] OCCULT BLOOD-UR Normal Negative [facility] Comment on above: Order Comment: CLEAN CATCH Result Comment: Canc elled via OM: MD Ordered Performed By: #### L 400.2010 ####[facility] [address] [place], [address] pH UR Normal 5.0 - 8.0 [facility] Comment on above: Order Comment: CLEAN CATCH Result Comment: Canc elled via OM: MD Ordered Performed By: #### L 400.2010 ####[facility] [address] [place], [address] PROT DIPSTX Normal Negative [facility] Comment on above: Order Comment: CLEAN CATCH Result Comment: Canc elled via OM: MD Ordered Performed By: #### L 400.2010 ####[facility] [address] [place], [address] SP.GR. DIPSTX Normal 1.002-1.030 [facility] Comment on above: Order Comment: CLEAN CATCH Result Comment: Canc elled via OM: MD Ordered Performed By: #### L 400.2010 ####[facility] [address] [place], [place], [address] UR Preservative Normal [facility] Comment on above: Order Comment: CLEAN CATCH Result Comment: Tori elled via OM: Ordered Performed By: #### L 400.2010 ####[facility] [address] [place], [place], [address] UROBILI Normal Normal [facility] Comment on above: Order Comment: CLEAN CATCH Result Comment: Tori elled via OM: Ordered Performed By: #### L 400.2010 ####[facility] [address] [place], [place], [address] Urine blood detectionOrdered By: Breann East on 11-18-2024 Urine Occult Blood 50 /ul High Negative [facility] Urine clarityOrdered By: Chaz East on 11-18-2024 Clarity (U) Clear Clear [facility] Urine color determinationOrd ered By: Breann East on 11-18-2024 Color (U) YELLOW Yellow [facility] Urine leukocyte esterase det ection by dipstickOrdered By: Breann East on 11-18-2024 Leukocyte esterase Test strip Ql (U) Negative Negative [facility] Urine pHOrdered By: Niurka East on 11-18-2024 pH (U) 7.0 [pH] 5.0 - 8.0 [facility] Urine sediment bacteria coun t by microscopy (number/high power field)Ordered By: Breann East on 11-18-2024 Bacteria LM.HPF (Urine sed) [#/Area] 1 /[HPF] None Seen [facility] Urine specific gravity measu rementOrdered By: Breann East on 11-18-2024 Specific gravity (U) [Rel density] 1.005 1.002-1.030 [facility] Urobilinogen Ql (U)Ordered B y: Breann East on 11-18-2024 Urine Urobilinogen Normal mg/dl Normal [facility] White blood cell (WBC) count Ordered By: Breann East on 11-18-2024 WBC (Bld) [#/Vol] 6.9 10*3/uL 4.4-11.0 [facility] White blood cell countOrdere d By: Breannemmett East on 11-18-2024 Urine WBC 0-5 SEEN /hpf 0-5 [facility] 36on 11-16-2024 36 Name of caller: Beatrice lobo Contact phone number: [phone] Relationship to Patient: spouse/[place] Provider: Dr Marci Lopez [place] [facility] [place]Reason for Call: Song called to let doctor know appointment is set for 12/19/24 with vascular surgeon, and is not sure if that's soon enough. Please advise Best time of day caller can be reached: [facility] 11-13-2024 NIRMALAN Telephone ([id number]) MANSI CARO ([id number]) 1955 F Date Time Provider Department 11/13/24 [...] to help with this? Pharmacy: [facility] Pharmacy in [place], [place] Janee Argueta RN 11/14/2024 9:27 AM [...] and is willing to rechallenge [facility] Date Reviewed: 05/17/2024 Reviewed by: Yadira Sanabria [...] Status:Closed by GHAZALA GUSMAN on 11/14/24 Normal [facility] US CAROTID ARTERY DUPLE X BILATERALon 11-12-2024 [facility] US CAROTID ARTERY DUPLEX BILATERAL Patient Name: MANSI CARO : 1955 Exam Date/Time: 11/10/2024 15:39 Procedure: [facility] US CAROTID ARTERY DUPLEX BILATERAL Ordering [...] Signed Date/Time: 11/12/2024 4:33 PM EST Normal [facility] US carotid artery d uplex bilateralon 11-12-2024 1. Probable significant stenosis left internal carotid [...] MD Electronically Signed Date/Time: 11/12/2024 4:33 PM [facility] 1955 [id number] Exam Date/Time: 11/10/2024 15:39 Procedure: VASC US [...] 50% ECA systolic: 105 cm/sec Vertebral: Antegrade [facility] Amadeo Hsu MD - 11/12/2024 [facility] 1955 [id number] Exam Date/Time: 11/10/2024 15:39 Procedure: VASC US [...] MD Electronically Signed Date/Time: 11/12/2024 4:33 PM [facility] Melodigram 12 Lead EKGon 11-02-2024 12 Lead EKG Normal [facility] Abdomen/Pelvis without Conto n 11-02-2024 Abdomen/Pelvis without Cont Normal [facility] BNP,B-Type NATRIURETIC PEPTI Ingrid 11-02-2024 Natriuretic peptide B (Bld) [Mass/Vol] 52.4 pg/mL Normal 0-100 [facility] Comment on above: Performed By: #### L 503.6672, L100.0500, L500.4050, L501.2450, L501.5425 ####[facility] [address] [place], [address] Brain/Head without Contrasto n 11-02-2024 Brain/Head without Contrast Normal [facility] CBC-Complete Blood Cnt No Di ffon 11-02-2024 Erythrocyte distribution width (RBC) [Ratio] 14.1 % Normal 11.6-14.6 [facility] Comment on above: Performed By: #### L 503.6620, L100.0500, L500.4050, L501.2450, L501.5425 ####[facility] [address] [place], [address] Hematocrit (Bld) [Volume fraction] 39.2 % Normal 37-47 [facility] Comment on above: Performed By: #### L 503.6620, L100.0500, L500.4050, L501.2450, L501.5425 ####[facility] [address] [place], [address] Hemoglobin (Bld) [Mass/Vol] 12.9 g/dL Normal 12.0-15.0 [facility] Comment on above: Performed By: #### L 503.6620, L100.0500, L500.4050, L501.2450, L501.5425 ####[facility] [address] [place], [address] MCH (RBC) [Entitic mass] 30.2 pg Normal 27.0-32.0 [facility] Comment on above: Performed By: #### L 503.6620, L100.0500, L500.4050, L501.2450, L501.5425 ####[facility] [address] [place], [address] MCHC (RBC) [Mass/Vol] 32.9 g/dL Normal 32-36 [facility] Comment on above: Performed By: #### L 503.6620, L100.0500, L500.4050, L501.2450, L501.5425 ####[facility] [address] [place], [address] MCV (RBC) [Entitic vol] 91.8 fL Normal 81-[address] [facility] Comment on above: Performed By: #### L 503.6620, L100.0500, L500.4050, L501.2450, L501.5425 ####[facility] [address] [place], [address] Platelet mean volume (Bld) [Entitic vol] 11.2 fL Normal 6.2-12.0 [facility] Comment on above: Performed By: #### L 503.6620, L100.0500, L500.4050, L501.2450, L501.5425 ####[facility] [address] [place], [address] Platelets (Bld) [#/Vol] 138 10*3/uL Low 150-450 [facility] Comment on above: Performed By: #### L 503.6620, L100.0500, L500.4050, L501.2450, L501.5425 ####[facility] [address] [place], [address] RBC (Bld) [#/Vol] 4.27 10*6/uL Normal 4.2-5.4 [facility] Comment on above: Performed By: #### L 503.6620, L100.0500, L500.4050, L501.2450, L501.5425 ####[facility] [address] [place], [address] RDW SD 47.5 fl High 35.1-43.9 [facility] Comment on above: Performed By: #### L 503.6620, L100.0500, L500.4050, L501.2450, L501.5425 ####[facility] [address] [place], [address] WBC (Bld) [#/Vol] 12.7 10*3/uL High 4.4-11.0 [facility] Comment on above: Performed By: #### L 503.6620, L100.0500, L500.4050, L501.2450, L501.5425 ####[facility] [address] [place], [address] Chest 1 View (Portable)on Chest 1 View (Portable) Normal [facility] Comprehensive Metabolic Prof ilon 11-02-2024 Albumin [Mass/Vol] 4.0 g/dL Normal 3.2-5.0 [facility] Comment on above: Order Comment: 1Y Performed By: #### L 503.6620, L100.0500, L500.4050, L501.2450, L501.5425 ####[facility] [address] [place], [address] Albumin/Globulin [Mass ratio] 1.1 {ratio} Normal 0.9-2.4 [facility] Comment on above: Order Comment: 1Y Performed By: #### L 503.6620, L100.0500, L500.4050, L501.2450, L501.5425 ####[facility] [address] [place], [address] ALK P 64 U/L Normal 45-117 [facility] Comment on above: Order Comment: 1Y Performed By: #### L 503.6620, L100.0500, L500.4050, L501.2450, L501.5425 ####[facility] [address] [place], [address] ALT [Catalytic activity/Vol] 17 U/L Normal 13-56 [facility] Comment on above: Order Comment: 1Y Performed By: #### L 503.6620, L100.0500, L500.4050, L501.2450, L501.5425 ####[facility] [address] [place], [address] AST [Catalytic activity/Vol] 20 U/L Normal 15-37 [facility] Comment on above: Order Comment: 1Y Performed By: #### L 503.6620, L100.0500, L500.4050, L501.2450, L501.5425 ####[facility] [address] [place], [address] Bilirubin [Mass/Vol] 0.40 mg/dL Normal 0.20-1.00 [facility] Comment on above: Order Comment: 1Y Result Comment: For patients on eltrombopag therapy, use of Dimension [place] TBIL is not recommended. Performed By: #### L 503.6620, L100.0500, L500.4050, L501.2450, L501.5425 ####[facility] [address] [place], [address] BUN/CRE 23.1 RATIO High 10-20 [facility] Comment on above: Order Comment: 1Y Performed By: #### L 503.6620, L100.0500, L500.4050, L501.2450, L501.5425 ####[facility] [address] [place], [address] CA,Total 9.5 mg/dL Normal 8.5-10.1 [facility] Comment on above: Order Comment: 1Y Performed By: #### L 503.6620, L100.0500, L500.4050, L501.2450, L501.5425 ####[facility] [address] [place], [address] Chloride [Moles/Vol] 106 mmol/L Normal 98-107 [facility] Comment on above: Order Comment: 1Y Performed By: #### L 503.6620, L100.0500, L500.4050, L501.2450, L501.5425 ####[facility] [address] [place], [address] CO2 [Moles/Vol] 27.0 mmol/L Normal 21.0-32.0 [facility] Comment on above: Order Comment: 1Y Performed By: #### L 503.6620, L100.0500, L500.4050, L501.2450, L501.5425 ####[facility] [address] [place], [address] Creatinine [Mass/Vol] 1.30 mg/dL High 0.55-1.02 [facility] Comment on above: Order Comment: 1Y Result Comment: The validity of the calculated GFR GFRAA in patients over70 years has not been determined. Clinical correlation isessential. Performed By: #### L 503.6620, L100.0500, L500.4050, L501.2450, L501.5425 ####[facility] [address] [place], [address] ECRCL 38.97 ml/min Normal [facility] Comment on above: Order Comment: 1Y Performed By: #### L 503.6620, L100.0500, L500.4050, L501.2450, L501.5425 ####[facility] [address] [place], [address] EST GFR - AA 52 mL/min Low >60 [facility] Comment on above: Order Comment: 1Y Result Comment: Afri can [place] GFR Calc Performed By: #### L 503.6620, L100.0500, L500.4050, L501.2450, L501.5425 ####[facility] [address] [place], [address] GAP 5 Normal 5-15 [facility] Comment on above: Order Comment: 1Y Performed By: #### L 503.6620, L100.0500, L500.4050, L501.2450, L501.5425 ####[facility] [address] [place], [address] GFR/1.73 sq M.predicted among non-blacks MDRD (S/P/Bld) [Vol rate/Area] 43 mL/min/{1.73_m2} Low >60 [facility] Comment on above: Order Comment: 1Y Result Comment: Non- GFR Calc Performed By: #### L 503.6620, L100.0500, L500.4050, L501.2450, L501.5425 ####[facility] [address] [place], [address] Globulin (S) [Mass/Vol] 3.6 g/dL Normal 2.2-4.2 [facility] Comment on above: Order Comment: 1Y Performed By: #### L 503.6620, L100.0500, L500.4050, L501.2450, L501.5425 ####[facility] [address] [place], [address] Glucose [Mass/Vol] 224 mg/dL High 74-106 [facility] Comment on above: Order Comment: 1Y Result Comment: Gluc ose result greater than or equal to 200 mg/dLsuggests DIABETES MELLITUS per A.D.A. criteria. Performed By: #### L 503.6620, L100.0500, L500.4050, L501.2450, L501.5425 ####[facility] [address] [place], [address] Potassium [Moles/Vol] 4.4 mmol/L Normal 3.5-5.1 [facility] Comment on above: Order Comment: 1Y Performed By: #### L 503.6620, L100.0500, L500.4050, L501.2450, L501.5425 ####[facility] [address] [place], [address] Sodium [Moles/Vol] 138 mmol/L Normal 136-145 [facility] Comment on above: Order Comment: 1Y Performed By: #### L 503.6620, L100.0500, L500.4050, L501.2450, L501.5425 ####[facility] [address] [place], [address] T PROT 7.6 g/dL Normal 6.4-8.2 [facility] Comment on above: Order Comment: 1Y Performed By: #### L 503.6620, L100.0500, L500.4050, L501.2450, L501.5425 ####[facility] [address] [place], [address] Urea nitrogen [Mass/Vol] 30 mg/dL High 7-18 [facility] Comment on above: Order Comment: 1Y Performed By: #### L 503.6620, L100.0500, L500.4050, L501.2450, L501.5425 ####[facility] [address] [place], [address] Emergency Department Summary on 11-02-2024 Emergency Department Summary Normal [facility] L501.4020on 11-02-2024 TROPONIN-I HS 22 pg/mL Normal 3.0-54.0 [facility] Comment on above: Result Comment: Plea se Note: New Test Units and Gender Specific Reference Ranges. For more information see Policy Stat Procedure [place] High Sensitivity Troponin (TNIH) and attachments. Performed By: #### L 501.4020 ####[facility] [address] [place], [address] L501.5425on 11-02-2024 TROPONIN-I HS 15 pg/mL Normal 3.0-54.0 [facility] Comment on above: Order Comment: 1Y Result Comment: Plea se Note: New Test Units and Gender Specific Reference Ranges. For more information see Policy Stat Procedure [place] High Sensitivity Troponin (TNIH) and attachments. Performed By: #### L 503.6620, L100.0500, L500.4050, L501.2450, L501.5425 ####[facility] [address] [place], [address] Lipaseon 11-02-2024 Lipase [Catalytic activity/Vol] 41 U/L Normal 13-75 [facility] Comment on above: Order Comment: 1Y Result Comment: Plea se note:LIPASE revised reference range effective 23.New Lipase methodology. Expected to produce lower valuesthan the previous assay method.NEW Reference Range: 13 - 75 U/L Performed By: #### L 503.6620, L100.0500, L500.4050, L501.2450, L501.5425 ####[facility] [address] [place], [address] M100.678on 11-02-2024 M100.678 Pending SARS-CoV-2 (COVID 19) Negative INFLUENZA A Negative INFLUENZA B Negative RSV PCR Negative Normal [facility] Comment on above: Performed By: #### M 100678, L400.0001 ####[facility] [address] [place], [address] Urinalysis, Completeon 11-02 BACTERIA 0 SEEN Normal None Seen [facility] Comment on above: Order Comment: CLEAN CATCH Performed By: #### M 100678, L400.0001 ####[facility] [address] [place], [address] EPI,SQUAMOUS 0 SEEN Normal 5-10 [facility] Comment on above: Order Comment: CLEAN CATCH Performed By: #### M 100678, L400.0001 ####[facility] [address] [place], [address] Mucus Ql (Urine sed) 0 SEEN Normal [facility] Comment on above: Order Comment: CLEAN CATCH Performed By: #### M 100.678, L400.0001 ####[facility] [address] [place], [address] RBC 0 SEEN Normal 0-5 [facility] Comment on above: Order Comment: CLEAN CATCH Performed By: #### M 100.678, L400.0001 ####[facility] [address] [place], [address] WBC 0 SEEN Normal 0-5 [facility] Comment on above: Order Comment: CLEAN CATCH Performed By: #### M 100.678, L400.0001 ####[facility] [address] [place], [address] Gastroenterology Visit Repor ton 10-17-2024 Gastroenterology Visit Report Normal [facility] 36on 10-06-2024 36 Name of caller: Beatrice lobo Contact phone number: [phone] Relationship to Patient: spouse/SO Provider: Dr. Lopez Practice: [facility] Chief Complaint/Reason for Call: Song wanted to ask Dr. Lopez to consider long covid for patient. States all the symptoms are there. Requesting a call back to discuss. Please advise. Best time of day caller can be reached: any Patient advised that office/PCP has 24-48 business hours to return their call: Normal [facility] Inital Evaluation (1) - PTon 09-27-2024 Inital Evaluation (1) - PT Normal [facility] MR/BMS.BVSon 09-14-2024 MR/BMS.BVS Normal [facility] 12 Lead EKGon 09-09-2024 12 Lead EKG Normal [facility] BNP,B-Type NATRIURETIC PEPTI Ingrid 09-09-2024 Natriuretic peptide B (Bld) [Mass/Vol] 40.9 pg/mL Normal 0-100 [facility] Comment on above: Performed By: #### L 300.4310, L503.6620, L300.3900, L300.8000 ####[facility] [address] [place], [address] Basic Metabolic Profile (BMP )on 09-09-2024 BUN/CRE 36.1 RATIO High - [facility] Comment on above: Performed By: #### L 100.0100, L500.2500 ####[facility] [address] [place], [address] CA,Total 9.4 mg/dL Normal 8.5-10.1 [facility] Comment on above: Performed By: #### L 100.0100, L500.2500 ####[facility] [address] [place], [address] Chloride [Moles/Vol] 106 mmol/L Normal 98-107 [facility] Comment on above: Performed By: #### L 100.0100, L500.2500 ####[facility] [address] [place], [address] CO2 [Moles/Vol] 28.0 mmol/L Normal 21.0-32.0 [facility] Comment on above: Performed By: #### L 100.0100, L500.2500 ####[facility] [address] [place], [address] Creatinine [Mass/Vol] 1.22 mg/dL High 0.55-1.02 [facility] Comment on above: Result Comment: The validity of the calculated GFR GFRAA in patients over70 years has not been determined. Clinical correlation isessential. Performed By: #### L 100.0100, L500.2500 ####[facility] [address] [place], [address] ECRCL 41.66 ml/min Normal [facility] Comment on above: Performed By: #### L 100.0100, L500.2500 ####[facility] [address] [place], [address] EST GFR - AA 56 mL/min Low >60 [facility] Comment on above: Result Comment: Afri can [place] GFR Calc Performed By: #### L 100.0100, L500.2500 ####[facility] [address] [place], [address] GAP 5 Normal 5-15 [facility] Comment on above: Performed By: #### L 100.0100, L500.2500 ####[facility] [address] [place], [address] GFR/1.73 sq M.predicted among non-blacks MDRD (S/P/Bld) [Vol rate/Area] 46 mL/min/{1.73_m2} Low >60 [facility] Comment on above: Result Comment: Non- GFR Calc Performed By: #### L 100.0100, L500.2500 ####[facility] [address] [place], [address] Glucose [Mass/Vol] 231 mg/dL High 74-106 [facility] Comment on above: Result Comment: Gluc ose result greater than or equal to 200 mg/dLsuggests DIABETES MELLITUS per A.D.A. criteria. Performed By: #### L 100.0100, L500.2500 ####[facility] [address] [place], [address] Potassium [Moles/Vol] 4.8 mmol/L Normal 3.5-5.1 [facility] Comment on above: Performed By: #### L 100.0100, L500.2500 ####[facility] [address] [place], [address] Sodium [Moles/Vol] 139 mmol/L Normal 136-145 [facility] Comment on above: Performed By: #### L 100.0100, L500.2500 ####[facility] [address] [place], [address] Urea nitrogen [Mass/Vol] 44 mg/dL High 7-18 [facility] Comment on above: Performed By: #### L 100.0100, L500.2500 ####[facility] [address] [place], [address] CBC W/Diff, Automatedon - Absolute Neut Normal 2.0-7.7 [facility] Comment on above: Result Comment: DUPL ICATES Performed By: #### L 100.0100, L501.5425 ####[facility] [address] [place], [address] HCT Normal 37-47 [facility] Comment on above: Result Comment: DUPL ICATES Performed By: #### L 100.0100, L501.5425 ####[facility] [address] [place], [address] HGB Normal 12.0-15.0 [facility] Comment on above: Result Comment: DUPL ICATES Performed By: #### L 100.0100, L501.5425 ####[facility] [address] [place], [address] MCH Normal 27.0-32.0 [facility] Comment on above: Result Comment: DUPL ICATES Performed By: #### L 100.0100, L501.5425 ####[facility] [address] [place], [address] MCHC Normal 32-36 [facility] Comment on above: Result Comment: DUPL ICATES Performed By: #### L 100.0100, L501.5425 ####[facility] [address] [place], [address] MCV Normal 81-99 [facility] Comment on above: Result Comment: DUPL ICATES Performed By: #### L 100.0100, L501.5425 ####[facility] [address] [place], [address] NEUT% Normal 47-70 [facility] Comment on above: Result Comment: DUPL ICATES Performed By: #### L 100.0100, L501.5425 ####[facility] [address] [place], [address] PLT Normal 150-450 [facility] Comment on above: Result Comment: DUPL ICATES Performed By: #### L 100.0100, L501.5425 ####[facility] [address] [place], [address] RBC Normal 4.2-5.4 [facility] Comment on above: Result Comment: DUPL ICATES Performed By: #### L 100.0100, L501.5425 ####[facility] [address] [place], [address] RDW CV Normal 11.6-14.6 [facility] Comment on above: Result Comment: DUPL ICATES Performed By: #### L 100.0100, L501.5425 ####[facility] [address] [place], [address] RDW SD Normal 35.1-43.9 [facility] Comment on above: Result Comment: DUPL ICATES Performed By: #### L 100.0100, L501.5425 ####[facility] [address] [place], [address] WBC Normal 4.4-11.0 [facility] Comment on above: Result Comment: DUPL ICATES Performed By: #### L 100.0100, L501.5425 ####[facility] [address] [place], [address] Absolute Lymph 2.53 X10 3/uL Normal 0.83-4.51 [facility] Comment on above: Performed By: #### L 100.0100, L500.2500 ####[facility] [address] [place], [address] Absolute Neut 3.4 X10 3/uL Normal 2.0-7.7 [facility] Comment on above: Performed By: #### L 100.0100, L500.2500 ####[facility] [address] [place], [address] Basophils/100 WBC (Bld) 0.3 % Normal 0-[address] [facility] Comment on above: Performed By: #### L 100.0100, L500.2500 ####[facility] [address] [place], [address] Eosinophils/100 WBC (Bld) 0.8 % Normal 0-5 [facility] Comment on above: Performed By: #### L 100.0100, L500.2500 ####[facility] [address] [place], [address] Erythrocyte distribution width (RBC) [Ratio] 13.8 % Normal 11.6-14.6 [facility] Comment on above: Performed By: #### L 100.0100, L500.2500 ####[facility] [address] [place], [address] Hematocrit (Bld) [Volume fraction] 37.4 % Normal 37-47 [facility] Comment on above: Performed By: #### L 100.0100, L500.2500 ####[facility] [address] [place], [address] Hemoglobin (Bld) [Mass/Vol] 12.0 g/dL Normal 12.0-15.0 [facility] Comment on above: Performed By: #### L 100.0100, L500.2500 ####[facility] [address] [place], [address] IG% 0.200 Normal 0.0-0.9 [facility] Comment on above: Result Comment: IG% - Immature Granulocytes (promyelocytes, myelocytes andmetamyelocytes) > 1% indicates that a LEFT SHIFT is Present. Performed By: #### L 100.0100, L500.2500 ####[facility] [address] [place], [address] Lymphocytes/100 WBC (Bld) 38.6 % Normal 19-41 [facility] Comment on above: Performed By: #### L 100.0100, L500.2500 ####[facility] [address] [place], [address] MCH (RBC) [Entitic mass] 30.0 pg Normal 27.0-32.0 [facility] Comment on above: Performed By: #### L 100.0100, L500.2500 ####[facility] [address] [place], [address] MCHC (RBC) [Mass/Vol] 32.1 g/dL Normal 32-36 [facility] Comment on above: Performed By: #### L 100.0100, L500.2500 ####[facility] [address] [place], [address] MCV (RBC) [Entitic vol] 93.5 fL Normal 81-99 [facility] Comment on above: Performed By: #### L 100.0100, L500.2500 ####[facility] [address] [place], [address] Monocytes/100 WBC (Bld) 8.5 % Normal 0-10 [facility] Comment on above: Performed By: #### L 100.0100, L500.2500 ####[facility] [address] [place], [address] Neutrophils/100 WBC (Bld) 51.6 % Normal 47-70 [facility] Comment on above: Performed By: #### L 100.0100, L500.2500 ####[facility] [address] [place], [address] Nucleated RBC (Bld) [#/Vol] 0 10*3/uL Normal 0-5 [facility] Comment on above: Performed By: #### L 100.0100, L500.2500 ####[facility] [address] [place], [address] Platelet mean volume (Bld) [Entitic vol] 10.4 fL Normal 6.2-12.0 [facility] Comment on above: Performed By: #### L 100.0100, L500.2500 ####[facility] [address] [place], [address] Platelets (Bld) [#/Vol] 167 10*3/uL Normal 150-450 [facility] Comment on above: Performed By: #### L 100.0100, L500.2500 ####[facility] [address] [place], [address] RBC (Bld) [#/Vol] 4.00 10*6/uL Low 4.2-5.4 [facility] Comment on above: Performed By: #### L 100.0100, L500.2500 ####[facility] [address] [place], [address] RDW SD 47.0 fl High 35.1-43.9 [facility] Comment on above: Performed By: #### L 100.0100, L500.2500 ####[facility] [address] [place], [address] WBC (Bld) [#/Vol] 6.6 10*3/uL Normal 4.4-11.0 [facility] Comment on above: Performed By: #### L 100.0100, L500.2500 ####[facility] [address] [place], [address] CTA Chest W/WO Contraston CTA Chest W/WO Contrast Normal [facility] Chest PA and Lateralon 09-09 Chest PA and Lateral Normal [facility] D-Dimer Quantitative (DVT/PE )on 09-09-2024 D-DIMER QUANT 0.72 FEU/ug/m Invalid Interpretation Code 0.27-0.49 [facility] Comment on above: Result Comment: CRIT ICAL VALUE CALLED TO ENEDELIA GARCIA RN ER09/09/24 1616 Adrienne Orozco.RESULTS READ BACK BY SAME .D-Dimer ELEVATED (>0.49): Additional studies and clinicalassessments are indicated to conclude diagnosis of:Deep Vein Thrombosis (DVT) or Pulmonary Embolism (PE) Performed By: #### L 300.4310, L503.6620, L300.3900, L300.8000 ####[facility] [address] [place], [address] Emergency Department Summary on 09-09-2024 Emergency Department Summary Normal [facility] L501.4020on 09-09-2024 TROPONIN-I HS 7 pg/mL Normal 3.0-54.0 [facility] Comment on above: Result Comment: Plea se Note: New Test Units and Gender Specific Reference Ranges. For more information see Policy Stat Procedure [place] High Sensitivity Troponin (TNIH) and attachments. Performed By: #### L 501.4020 ####[facility] [address] [place], [address] L501.5425on 09-09-2024 TROPONIN-I HS 5 pg/mL Normal 3.0-54.0 [facility] Comment on above: Order Comment: 1Y Result Comment: Plea se Note: New Test Units and Gender Specific Reference Ranges. For more information see Policy Stat Procedure [place] High Sensitivity Troponin (TNIH) and attachments. Performed By: #### L 100.0100, L501.5425 ####[facility] [address] [place], [address] Partial Thromboplast Timeon 09-09-2024 aPTT Coag (Bld) [Time] 21.2 s Low 24.1-36.2 [facility] Comment on above: Performed By: #### L 300.4310, L503.6620, L300.3900, L300.8000 ####[facility] [address] [place], [address] Prothrombin Time w/INRon INR Coag (PPP) [Relative time] 1.0 {INR} Normal [facility] Comment on above: Performed By: #### L 300.4310, L503.6620, L300.3900, L300.8000 ####[facility] [address] [place], [address] PT Coag (PPP) [Time] 13.3 s Normal 11.7-14.9 [facility] Comment on above: Performed By: #### L 300.4310, L503.6620, L300.3900, L300.8000 ####[facility] [address] [place], [address] PET+CT Guidance for localiza tion of tumor [...] cm. MUSCULOSKELETAL: * No metabolically active disease. Marketing Technology Specialist: MARC Transcribe Date/Time: Aug 14 2024 12:13P Dictated by : RICK BOLAND MD This examination was interpreted and the report reviewed and electronically signed by: RICK BOLAND MD on Aug 14 2024 12:56PM [facility] * * *Final Report* * * DATE OF EXAM: Aug 13 2024 1:08PM [facility] 0060 - [place] PET/CT SKULL-THIGH INIT [...] designed to produce diagnostic CT scan quality. Physiologic/non-pathol ogic uptake in some body regions could confound or obscure some pathology. * CT Dose-Length Product (DLP): 258 mGy*cm * CT Dose Reduction Employed: Yes * Blood glucose: 149 mg/dL * Injected activity: 6.4 mCi * Uptake Time: 47 minutes * Radiopharmaceutical: R33-Ikwraobzybmgmwbafn (FDG) COMPARISON: No previous FDG PET/CT available [...] changes. Soft Tissues: No radiotracer avid lesion. [facility] RADIOLOG[facility] Provider, [facility] - 08/14/2024 * * *Final Report* * * DATE OF EXAM: Aug 13 2024 1:08PM [facility] 0060 - NM PET/CT SKULL-THIGH INIT [...] designed to produce diagnostic CT scan quality. Physiologic/non-pathol ogic uptake in some body regions could confound or obscure some pathology. * CT Dose-Length Product (DLP): 258 mGy*cm * CT Dose Reduction Employed: Yes * Blood glucose: 149 mg/dL * Injected activity: 6.4 mCi * Uptake Time: 47 minutes * Radiopharmaceutical: [id number] (FDG) COMPARISON: No previous FDG PET/CT available [...] cm. MUSCULOSKELETAL: * No metabolically active disease. Marketing Technology Specialist: MARC Transcribe Date/Time: Aug 14 2024 12:13P Dictated by : RICK BOLAND MD This examination was interpreted and the report reviewed and electronically signed by: RICK BOLAND MD on Aug 14 2024 12:56PM EST [facility] PET+CT Guidance for localiza tion of tumor of Skull base to mid-thigh-- W 18F-FDG IVOrdered By: Ccf Provider on 08-14-2024 [facility] GLUCOSE, BLOOD (POC)on 08-13 Glucose [Mass/Vol] 149 mg/dL Abnormal 74 - 99 mg/dL [facility] Comment on above: Location:[facility], [address] [place] [address], [facility] The Accu-Chek Inform II glucose meter has [...] Interpretation and review of laboratory results Abnormal [facility] NM PET/CT SKULL-THIGH INITon 08-13-2024 AL PET/CT SKULL-THIGH INIT * * *Final Report* * * DATE OF EXAM: Aug 13 2024 1:08PM [facility] 0060 - AL PET/CT SKULL-THIGH INIT / PROCEDURE REASON: EMPHYSEMA [...] designed to produce diagnostic CT scan quality. Physiologic/non-pathol ogic uptake in some body regions could confound or obscure some pathology. * CT Dose-Length Product (DLP): 258 mGy*cm * CT Dose Reduction Employed: Yes * Blood glucose: 149 mg/dL * Injected activity: 6.4 mCi * Uptake Time: 47 minutes * Radiopharmaceutical: N40-Lvrupcjywxsjiceerc (FDG) COMPARISON: No previous FDG PET/CT available [...] cm. MUSCULOSKELETAL: * No metabolically active disease. Marketing Technology Specialist: MARC Transcribe Date/Time: Aug 14 2024 12:13P Dictated by : RICK BOLAND MD This examination was interpreted and the report reviewed and electronically signed by: RICK BOLAND MD on Aug 14 2024 12:56PM EST [id number] Normal [facility] PET+CT Guidance for localiza tion of tumor of Skull base to mid-thigh-- W 18F-FDG Macrina 08-13-2024 Radiology Study observation (narrative) [facility] CT Chest WO contrastOrdered By: Ccf Provider on 07-25-2024 Interpretation and review of laboratory results Abnormal [facility] Radiology Result ACTIONABLE Abnormal [facility] Comment on above: This report contains an [...] contact your provider for the next steps. [facility] CT Chest WO contraston 07-25 IMPRESSION: Emphysem [...] Code: CT_1 Recommendation: NM PET/MR WHOLE BODY ([id number]) Time Frame: At the discretion of the clinical team. COMMUNICATION: Results will be communicated with the ordering provider via [employer] staff message or phone message by [facility] within 2 business days of report finalization. --END OF FINDING-- Marketing Technology Specialist: PSCB Transcribe Date/Time: Jul 25 2024 7:50A Dictated by : LELA SCHULZ MD This examination was interpreted and the report reviewed and electronically signed by: LELA SCHULZ MD on Jul 25 2024 3:53PM [facility] RADIOLOGY * * *Final Report* * * DATE OF EXAM: Jul 21 2024 12:08PM [facility] 0541 - CT CHEST WO IVCON / [...] left-sided hydronephrosis. Partially visualized left renal cyst. [facility] RADIOLOGY Provider, Jeremias Cruz - 07/25/2024 * * *Final Report* * * DATE OF EXAM: Jul 21 2024 12:08PM [facility] 0541 - CT CHEST WO IVCON / [...] Code: CT_1 Recommendation: NM PET/MR WHOLE BODY ([id number]) Time Frame: At the discretion of the clinical team. COMMUNICATION: Results will be communicated with the ordering provider via [employer] staff message or phone message by [facility] within 2 business days of report finalization. --END OF FINDING-- Marketing Technology Specialist: PSCArchana Transcribe Date/Time: Jul 25 2024 7:50A Dictated by : LELA SCHULZ MD This examination was interpreted and the report reviewed and electronically signed by: LELA SCHULZ MD on Jul 25 2024 3:53PM [facility] CT CHEST WO IVCONon 07-21-[address] CHEST WO IVCON * * *Final Report* * * DATE OF EXAM: Jul 21 2024 12:08PM [facility] 0541 - CT CHEST WO IVCON / [...] Code: CT_1 Recommendation: NM PET/MR WHOLE BODY ([id number]) Time Frame: At the discretion of the clinical team. COMMUNICATION: Results will be communicated with the ordering provider via [employer] staff message or phone message by [facility] within 2 business days of report finalization. --END OF FINDING-- Marketing Technology Specialist: MARC Transcribe Date/Time: Jul 25 2024 7:50A Dictated by : LELA SCHULZ MD This examination was interpreted and the report reviewed and electronically signed by: LELA SCHULZ MD on Jul 25 2024 3:53PM EST [id number] ACTIONABLE Invalid Interpretation Code [facility] CT Chest WO contraston 07-21 Radiology Study observation (narrative) Onelia mera [facility] Basic metabolic 1998 panelon 07-20-2024 Anion gap [Moles/Vol] 4 mmol/L 3 - 13 mmol/L [facility] Calcium [Mass/Vol] 9.1 mg/dL 8.4 - 10. 4 mg/dL [facility] Chloride [Moles/Vol] 103 mmol/L 98 - 10 7 mmol/L [facility] CO2 [Moles/Vol] 30 mmol/L 22 - 30 mmol/L [facility] Creatinine [Mass/Vol] 1.01 mg/dL 0.52 - 1.04 mg/dL [facility] GFR/1.73 sq M.predicted (S/P/Bld) [Vol rate/Area] 59.6 mL/min Low - PINF [facility] Comment on above: Calculation based on the Chronic Kidney Disease Epidemiology Collaboration (CKD-EPI) equation refit without adjustment for race Glucose [Mass/Vol] 191 mg/dL High 70 - 100 mg/dL [facility] Interpretation and review of laboratory results Abnormal [facility] Potassium [Moles/Vol] 5.2 mmol/L High 3.5 - 5.1 mmol/L [facility] Sodium [Moles/Vol] 137 mmol/L 135 - 145 mmol/L [facility] Urea nitrogen [Mass/Vol] 31 mg/dL High 7 - 17 mg/dL [facility] CBC W Auto Differential pane l (Bld)on 07-20-2024 Basophils (Bld) [#/Vol] 0 10*3/uL 0.0 - 0.2 10*3/uL [facility] Basophils/100 WBC (Bld) 0.5 % 0.0 - 2.0 % [facility] Eosinophils (Bld) [#/Vol] 0.1 10*3/uL 0.0 - 0.5 10*3/uL [facility] Eosinophils/100 WBC (Bld) 2.3 % 0.0 - 6.0 % [facility] Erythrocyte distribution width (RBC) [Ratio] 14.2 % 11.5 - 15.0 % [facility] Hematocrit (Bld) [Volume fraction] 32.9 % Low 35.0 - 47.0 % [facility] Hemoglobin (Bld) [Mass/Vol] 10.6 g/dL Low 11.7 - 16.0 g/dL [facility] Immature granulocytes (Bld) [#/Vol] 0 10*3/uL NINF - 0.1 10*3/uL [facility] Immature granulocytes/100 WBC (Bld) 0.2 % 0.0 - 2.0 % [facility] Interpretation and review of laboratory results Abnormal [facility] Lymphocytes (Bld) [#/Vol] 2.1 10*3/uL 1.0 - 4.3 10*3/uL [facility] Lymphocytes/100 WBC (Bld) 37 % 15.0 - 45.0 % [facility] MCH (RBC) [Entitic mass] 30.7 pg 26. 0 - 34.0 pg [facility] MCHC (RBC) [Mass/Vol] 32.2 % 30.5 - 36.0 % [facility] MCV (RBC) [Entitic vol] 95.4 fL 77.0 - 99.0 fL [facility] Monocytes (Bld) [#/Vol] 0.5 10*3/uL 0.0 - 0.9 10*3/uL [facility] Monocytes/100 WBC (Bld) 8.4 % 5.0 - 13.0 % [facility] Neutrophils (Bld) [#/Vol] 3 10*3/uL 1.8 - 7.5 10*3/uL [facility] Neutrophils/100 WBC (Bld) 51.6 % 38.0 - 82.0 % [facility] Nucleated RBC/100 WBC (Bld) [Ratio] 0 % [facility] Platelet mean volume (Bld) [Entitic vol] 10.7 fL 9.0 - 12.7 fL [facility] Comment on above: MPV is a calculated measurement using platelet volume ratio Platelets (Bld) [#/Vol] 172 10*3/uL 140 - 440 10*3/uL [facility] RBC (Bld) [#/Vol] 3.45 10*6/uL Low 3.80 - 5.2 0 10*6/uL [facility] WBC (Bld) [#/Vol] 5.7 10*3/uL 3.6 - 10.7 10*3/uL [facility] Activated partial thrombopla stin time (aPTT) in platelet poor plasma by coagulation aOrdered By: Luigi Tinoco on 07-17-2024 aPTT Coag (PPP) [Time] 23.6 s Low 24.1-36.2 [facility] normalized rat io (INR) calculationOrdered By: Luigi Tinoco on 07-17-2024 INR Coag (Bld) [Relative time] 1.0 {INR} [facility] Prothrombin timeOrdered By: Luigi Tinoco on 07-17-2024 PT Coag (PPP) [Time] 13.3 s 11.7-14.9 [facility] Vitamin B12 measurementOrder ed By: Luigi Tinoco on 07-17-2024 Cobalamin (Vitamin B12) [Mass/Vol] 1211 pg/mL High 211-911 [facility] aPTT Coag (PPP) [Time]Ordere d By: Luigi Tinoco on 07-17-2024 aPTT Coag (Bld) [Time] 23.6 s Low 24.1-36.2 [facility] XR Abdomen Single viewon 1. Nonobstructive bowel gas pattern, and findings suggestive of constipation. 2. Possible cholelithiasis. Report Dictated on Electronically Signed By: Laurent Kaba MD Electronically Signed Date/Time: 07/11/2024 7:14 PM EDT [facility] [employer] Patient Name: MANSI CARO : 1955 [...] diffuse degenerative change in the lumbar spine. [facility] [employer] Laurent Kaba MD - 07/11/2024 [facility] 1955 [id number] Exam Date/Time: 07/10/2024 16:17 Procedure: XR ABDOMEN [...] Electronically Signed Date/Time: 07/11/2024 7:14 PM EDT [facility] XR Abdomen Single viewOrdere d By: Laurent Kaba on 07-11-2024 [facility] Work Phone: XR Abdomen Single viewon Radiology Study observation (narrative) [facility] LABORATORYOrdered By: Cheli Kuo on 05-19-2024 Cholesterol [...] 05-19-2024 Cholesterol [Mass/Vol] 136 mg/dL Normal 0-200 [facility] ([place]) Comment on above: Result Comment: Chol esterol Reference Interval: Less than 200 Desirable 200-239 Borderline high risk 240 and above High risk Performed By: #### C RE, GFR #### [place] [address] Cholesterol in HDL [Mass/Vol] 42 mg/dL Normal 40-60 [facility] ([place]) Comment on above: Performed By: #### C RE, GFR #### [place] [address] Cholesterol in LDL [Mass/Vol] 69 mg/dL Normal 0-130 [facility] ([place]) Comment on above: Performed By: #### C RE, GFR #### [place] [address] Triglyceride [Mass/Vol] 123 mg/dL Normal 0-150 [facility] ([place]) Comment on above: Result Comment: Trig lyceride Reference Interval: Less than 150 Normal 150-199 Borderline high risk 200-499 High risk 500 or higher Very high risk Performed By: #### C RE, GFR #### [address] [address] PBNPon 05-19-2024 Natriuretic peptide B (Bld) [Mass/Vol] 578 pg/mL High 0-125 [facility] ([place]) Comment on above: Result Comment: NT-p roBNP results of less than 300 pg/mL effectively rules out acute congestive heart failure with 99% negative predictive value. Performed By: #### C RE, GFR #### [place] [id number] CT ANGIOGRAPHY ABD AORTA + I LIOFEMORALon [...] flow FINDINGS: Note: Study is submitted to nh for interpretation on April 24, 2024, 1:27 [...] Date: 04/24/2024 1:31:15 PM Ordering Provider: ADRIENNE Bassett [facility] ([place]) .GFRon 04-07-2024 GFR 51 ml/min/1.73sqm Normal [facility] ([place]) Comment on above: Result Comment: GFR Population [...] Performed By: #### C RE, GFR #### [address] [address] GFR Non- 42 ml/min/1.73sqm Normal [facility] ([place]) Comment on above: Result Comment: GFR Population [...] Performed By: #### C RE, GFR #### [address] [address] CREon 04-07-2024 Creatinine [Mass/Vol] 1.25 mg/dL High 0.55-1.02 [facility] ([place]) Comment on above: Performed By: #### C RE, GFR #### [address] [address] Absolute lymphocyte countOrd ered By: Alonso Marte on 03-15-2024 Lymphocytes Auto (Unsp spec) [#/Vol] 3.07 10*3/uL 0.83-4.51 [facility] Automated lymphocyte count a s percentage of total leukocytesOrdered By: Alonso Marte on 03-15-2024 Lymphocytes/100 WBC Auto (Unsp spec) 51.0 % 19-41 [facility] Basophil percentageOrdered B y: Alonso Marte on 03-15-2024 Basophils/100 WBC (Bld) 0.7 % 0-[address] [facility] Chloride [Moles/Vol] 107 mmol/L 98-107 [facility] Eosinophils/100 WBC (Bld) 1.0 % 0-5 [facility] Glucose [Mass/Vol] 122 mg/dL 74-106 [facility] Comment on above: Fasting Glucose resu lt from 100 to 125 mg/dL suggests IMPAIRED HOMEOSTASIS per A.D.A. criteria. Hemoglobin (Bld) [Mass/Vol] 11.3 g/dL 12.0-15.0 [facility] Monocytes/100 WBC (Bld) 8.8 % 0-[address] [facility] Neutrophils (Bld) [#/Vol] 2.3 10*3/uL 2.0-7.7 [facility] Neutrophils/100 WBC (Bld) 38.2 % 47-70 [facility] Potassium [Moles/Vol] 4.5 mmol/L 3.5-5.1 [facility] Sodium [Moles/Vol] 139 mmol/L 136-145 [facility] WBC (Bld) [#/Vol] 6.0 10*3/uL 4.4-11.0 [facility] Determination of erythrocyte mean corpuscular volume (MCV)Ordered By: Alonso Marte on 03-15-2024 MCV (RBC) [Entitic vol] 96.5 fL 81-[address] [facility] Erythrocyte distribution wid th ratioOrdered By: [facility] 03-15-2024 Erythrocyte distribution width (RBC) [Ratio] 14.6 % 11.6-14.6 [facility] Erythrocyte distribution wid th standard deviationOrdered By: Alonso Marte on 03-15-2024 Erythrocyte distribution width (RBC) [Entitic vol] 52.5 fL 35.1-43.9 [facility] Hematocrit Auto (Bld) [Volum e fraction]Ordered By: Alonso Marte on 03-15-2024 Hematocrit (Bld) [Volume fraction] 35.9 % 37-47 [facility] Immature granulocytes/100 WB C Auto (Bld)Ordered By: Alonso Marte on 03-15-2024 Immature granulocytes/100 WBC (Bld) 0.300 % 0.0-0.9 [facility] Comment on above: IG% - Immature Granu locytes (promyelocytes, myelocytes and metamyelocytes) > 1% indicates that a LEFT SHIFT is Present. Laboratory - Chemistry and C hemistry - challengeOrdered By: Alonso Marte on 03-15-2024 CO2 [Moles/Vol] 28.0 mmol/L 21.0-32.0 [facility] Urea nitrogen/Creatinine [Mass ratio] 23.8 mg/mg 10-20 [facility] Laboratory - Hematology and Cell countsOrdered By: Alonso Marte on 03-15-2024 MCH (RBC) [Entitic mass] 30.4 pg 27.0-32.0 [facility] MCHC (RBC) [Mass/Vol] 31.5 g/dL 32-36 [facility] Nucleated RBC/100 WBC (Bld) [Ratio] 0 % 0-5 [facility] Platelet mean volume (Bld) [Entitic vol] 11.2 fL 6.2-12.0 [facility] Platelets (Bld) [#/Vol] 206 10*3/uL 150-450 [facility] No Panel InformationOrdered By: Alonso Marte on 03-15-2024 Estimated Creatinine Clearance Calc 45.89 ml/min [facility] Estimated GFR (MDRD) Amer 66 mL/min >60 [facility] Comment on above: GFR Calc Estimated GFR (MDRD) Non-Af Amer 55 mL/min >60 [facility] Comment on above: Non- GFR Calc RBC Auto (Bld) [#/Vol]Ordere d By: Alonso Marte on 03-15-2024 RBC (Bld) [#/Vol] 3.72 10*6/uL 4.2-5.4 [facility] Serum or plasma calcium loco urement (mass/volume)Ordered By: Alonso Marte on 03-15-2024 Calcium [Mass/Vol] 9.3 mg/dL 8.5-10.1 [facility] Serum or plasma creatinine m easurement (mass/volume)Ordered By: Alonso Marte on 03-15-2024 Creatinine [Mass/Vol] 1.05 mg/dL 0.55-1.02 [facility] Comment on above: The validity of the calculated GFR & GFRAA in patients over 70 years has not been determined. Clinical correlation is essential. Serum or plasma urea nitroge n measurement (mass/volume)Ordered By: Alonso Marte on 03-15-2024 Urea nitrogen [Mass/Vol] 25 mg/dL 7-18 [facility] Thin prep Papanicolaou smear with manual screeningOrdered By: Alonso Marte on 03-15-2024 Thin prep Papanicolaou smear with manual screening 116 mg/dL 74-106 [facility] Comment on above: MANAGEMENT OF PATIEN T CARE PER NURSING PROTOCOL Thin prep Papanicolaou smear with manual screening 4 5-15 [facility] No Panel InformationOrdered By: Alonso Marte on 03-02-2024 Vitamin D 25-Hydroxy 54.2 ng/mL [facility] Comment on above: Vitamin D 25(OH) Sta tus Range Deficiency <20 ng/mL (50nmol/L) Insufficiency 20 - 30 ng/mL (50 - 75 nmol/L) Sufficiency 30 - 100 ng/mL (75 - 250 nmol/L) Toxicity >100 ng/mL (>250 nmol/L) Absolute lymphocyte countOrd ered By: Heike Horta on 02-29-2024 Lymphocytes Auto (Unsp spec) [#/Vol] 1.82 10*3/uL 0.83-4.51 [facility] Automated lymphocyte count a s percentage of total leukocytesOrdered By: Heike Horta on 02-29-2024 Lymphocytes/100 WBC Auto (Unsp spec) 43.5 % 19-41 [facility] Basophil percentageOrdered B y: Heike Horta on 02-29-2024 Basophils/100 WBC (Bld) 0.5 % 0-1 [facility] Chloride [Moles/Vol] 115 mmol/L 98-107 [facility] Eosinophils/100 WBC (Bld) 3.3 % 0-5 [facility] Glucose [Mass/Vol] 119 mg/dL 74-106 [facility] Comment on above: Fasting Glucose resu lt from 100 to 125 mg/dL suggests IMPAIRED HOMEOSTASIS per A.D.A. criteria. Hemoglobin (Bld) [Mass/Vol] 8.8 g/dL 12.0-15.0 [facility] Monocytes/100 WBC (Bld) 10.0 % 0-[address] [facility] Neutrophils (Bld) [#/Vol] 1.8 10*3/uL 2.0-7.7 [facility] Neutrophils/100 WBC (Bld) 42.5 % 47-70 [facility] Potassium [Moles/Vol] 3.3 mmol/L 3.5-5.1 [facility] Sodium [Moles/Vol] 144 mmol/L 136-145 [facility] WBC (Bld) [#/Vol] 4.2 10*3/uL 4.4-11.0 [facility] Blood manual differential co mment interpretation (narrative result)Ordered By: Heike Horta on 02-29-2024 Manual differential comment Jake (Bld) [Interp] SCANNED [facility] Determination of erythrocyte mean corpuscular volume (MCV)Ordered By: Heike Horta on 02-29-2024 MCV (RBC) [Entitic vol] 92.3 fL 81-[address] [facility] Erythrocyte distribution wid th ratioOrdered By: Heike Horta on 02-29-2024 Erythrocyte distribution width (RBC) [Ratio] 14.3 % 11.6-14.6 [facility] Erythrocyte distribution wid th standard deviationOrdered By: [facility] Rula on 02-29-2024 Erythrocyte distribution width (RBC) [Entitic vol] 48.5 fL 35.1-43.9 [facility] Hematocrit Auto (Bld) [Volum e fraction]Ordered By: Heike Horta on 02-29-2024 Hematocrit (Bld) [Volume fraction] 27.4 % 37-47 [facility] Immature granulocytes/100 WB C Auto (Bld)Ordered By: Heike Horta on 02-29-2024 Immature granulocytes/100 WBC (Bld) 0.200 % 0.0-0.9 [facility] Comment on above: IG% - Immature Granu locytes (promyelocytes, myelocytes and metamyelocytes) > 1% indicates that a LEFT SHIFT is Present. Laboratory - Chemistry and C hemistry - challengeOrdered By: Heike Horta on 02-29-2024 CO2 [Moles/Vol] 23.0 mmol/L 21.0-32.0 [facility] Urea nitrogen/Creatinine [Mass ratio] 5.5 mg/mg 10-20 [facility] Laboratory - Chemistry and C hemistry - challengeOrdered By: Ganesh Kiran on 02-29-2024 Magnesium [Mass/Vol] 1.6 mg/dL 1.6-2.6 [facility] Laboratory - Hematology and Cell countsOrdered By: Heike Horta on 02-29-2024 MCH (RBC) [Entitic mass] 29.6 pg 27.0-32.0 [facility] MCHC (RBC) [Mass/Vol] 32.1 g/dL 32-36 [facility] Nucleated RBC/100 WBC (Bld) [Ratio] 0 % 0-5 [facility] Platelet mean volume (Bld) [Entitic vol] 10.6 fL 6.2-12.0 [facility] Platelets (Bld) [#/Vol] 199 10*3/uL 150-450 [facility] No Panel InformationOrdered By: Heike Horta on 02-29-2024 Estimated Creatinine Clearance Calc 59.58 ml/min [facility] Estimated GFR (MDRD) Amer 102 mL/min >60 [facility] Comment on above: GFR Calc Estimated GFR (MDRD) Non-Af Amer 85 mL/min >60 [facility] Comment on above: Non- GFR Calc RBC Auto (Bld) [#/Vol]Ordere d By: Heike Horta on 02-29-2024 RBC (Bld) [#/Vol] 2.97 10*6/uL 4.2-5.4 [place] [facility] Serum or plasma calcium loco urement (mass/volume)Ordered By: Heike Horta on 02-29-2024 Calcium [Mass/Vol] 7.6 mg/dL 8.5-10.1 oste r [facility] Serum or plasma creatinine m easurement (mass/volume)Ordered By: Heike Horta on 02-29-2024 Creatinine [Mass/Vol] 0.72 mg/dL 0.55-1.02 [facility] Comment on above: The validity of the calculated GFR & GFRAA in patients over 70 years has not been determined. Clinical correlation is essential. Serum or plasma urea nitroge n measurement (mass/volume)Ordered By: Heike Horta on 02-29-2024 Urea nitrogen [Mass/Vol] 4 mg/dL 7-18 [facility] Thin prep Papanicolaou smear with manual screeningOrdered By: Heike Horta on 02-29-2024 Thin prep Papanicolaou smear with manual screening 6 5-15 [facility] Basophil percentageOrdered B y: Ganesh Magno on 02-28-2024 Basophil percentage 2.0 mg/dL 2.5-4.9 [facility] Serum or plasma trough vanco mycin levelOrdered By: Heike Horta on 02-27-2024 Vancomycin trough [Mass/Vol] 13.3 ug/mL 5.0-15.0 [facility] Comment on above: VANCOMYCIN STANDARED DRUG THERAPY TROUGH LEVEL: 5.0 - 15.0 mg/L VANCOMYCIN HIGH INTENSITY THERAPY TROUGH LEVEL: 15.0 - 20.0 mg/L High Intensity therapy recommended for serious lifethreatening infections include:- Nfxmesqlgt-Vdjbrtrfjysh-Phuorstkt (Ventilator/Healtcare Associated)-Sepsis PLEASE CONTACT PHARMACY SERVICES (#[id number]) FOR INTERPRETATIONOF RESULTS. Culture, urineOrdered By: Allison Greco on 02-26-2024 Bacteria identified Cx Nom (U) Culture exhibits no growth. [facility] Basophil percentageOrdered B y: Heike Horta on 02-25-2024 Basophil percentage 0 SEEN /hpf 0-5 [facility] Bilirubin Test strip Ql (U)O rdered By: Heike Horta on 02-25-2024 Bilirubin Ql (U) Negative Negative [facility] Ketones Test strip Ql (U)Ord ered By: Heike Horta on 02-25-2024 Ketones Ql (U) 5 mg/dl Negative [facility] Laboratory - Microbiology an d Antimicrobial susceptibilityOrdered By: Heike Horta on 02-25-2024 Bacteria identified Cx Nom (Bld) No growth in 5 days. [facility] Mucus LM Ql (Urine sed)Order ed By: Heike Horta on 02-25-2024 Mucus Ql (Urine sed) 0 SEEN /hpf [facility] Nitrite Test strip Ql (U)Ord ered By: Heike Horta on 02-25-2024 Nitrite Ql (U) Negative Negative [facility] No Panel InformationOrdered By: Heike Horta on 02-25-2024 Urine RBC 0 SEEN /hpf 0-5 [facility] Protein Test strip Ql (U)Ord ered By: Heike Horta on 02-25-2024 Protein Ql (U) 15 mg/dl Negative [facility] Squamous epithelial cells de tection in urine sediment by light microscopyOrdered By: Heike Horta on 02-25-2024 Epithelial cells.squamous LM Ql (Urine sed) 0 SEEN /hpf 5-10 [facility] Urine blood detectionOrdered By: Heike Horta on 02-25-2024 RBC Ql (U) Negative Negative [facility] Urine clarityOrdered By: Selina Horta on 02-25-2024 Clarity (U) Clear Clear [facility] Urine color determinationOrd ered By: Heike Horta on 02-25-2024 Color (U) Yellow Yellow [facility] Urine glucose detectionOrder ed By: Heike Horta on 02-25-2024 Glucose Ql (U) 1000 mg/dl Normal [facility] Urine leukocyte esterase det ection by dipstickOrdered By: Heike Horta on 02-25-2024 Leukocyte esterase Test strip Ql (U) Negative Negative [facility] Urine pHOrdered By: Heike Singh am on 02-25-2024 pH (U) 5.0 [pH] 5.0 - 8.0 [facility] Urine sediment bacteria coun t by microscopy (number/high power field)Ordered By: Heike Horta on 02-25-2024 Bacteria LM.HPF (Urine sed) [#/Area] 0 /[HPF] None Seen [facility] Urine specific gravity measu rementOrdered By: Heike Horta on 02-25-2024 Specific gravity (U) [Rel density] 1.020 1.002-1.030 [facility] Urine urobilinogen measureme ntOrdered By: Heike Horta on 02-25-2024 Urobilinogen Ql (U) Normal mg/dl Normal [facility] Thin prep Papanicolaou smear with manual screeningOrdered By: Heike Horta on 02-22-2024 Thin prep Papanicolaou smear with manual screening 183 mg/dL 74-106 [facility] Comment on above: MANAGEMENT OF PATIEN T CARE PER NURSING PROTOCOL Whole blood hemoglobin A1c/t otal hemoglobin ratio (mass fraction)Ordered By: Jose Sahni on 02-22-2024 HbA1c (Bld) [Mass fraction] 7.0 % 3.8-5.6 [facility] Comment on above: Normal < 5.7 % Predi abetic 5.7 - 6.4 % Diabetic >or= 6.5 % Please note range changes. Absolute lymphocyte countOrd ered By: Jose Jaime on 02-21-2024 Lymphocytes Auto (Unsp spec) [#/Vol] 1.08 10*3/uL 0.83-4.51 [facility] Activated partial thrombopla stin time (aPTT) in platelet poor plasma by coagulation aOrdered By: Jose Jaime on 02-21-2024 aPTT Coag (PPP) [Time] 24.8 s 24.1-36.2 [facility] Automated lymphocyte count a s percentage of total leukocytesOrdered By: Jose Jaime on 02-21-2024 Lymphocytes/100 WBC Auto (Unsp spec) 5.3 % 19-41 [facility] Basophil percentageOrdered B y: Jose Jaime on 02-21-2024 Lactate [Moles/Vol] 1.5 mmol/L 0.4-2.0 [facility] Basophil percentage 0-5 SEEN /hpf 0-5 [facility] Basophils/100 WBC (Bld) 0.1 % 0-1 [facility] Bilirubin [Mass/Vol] 0.60 mg/dL 0.20-1.00 [facility] Comment on above: For patients on eltr ombopag therapy, use of Dimension [place] TBIL is not recommended. Chloride [Moles/Vol] 100 mmol/L 98-107 [facility] Eosinophils/100 WBC (Bld) 0.0 % 0-5 [facility] Glucose [Mass/Vol] 241 mg/dL 74-106 [facility] Comment on above: Glucose result great er than or equal to 200 mg/dLsuggests DIABETES MELLITUS per A.D.A. criteria. Hemoglobin (Bld) [Mass/Vol] 12.2 g/dL 12.0-15.0 [facility] Monocytes/100 WBC (Bld) 5.5 % 0-[address] [facility] Neutrophils (Bld) [#/Vol] 18.1 10*3/uL 2.0-7.7 [facility] Neutrophils/100 WBC (Bld) 88.4 % 47-70 [facility] Potassium [Moles/Vol] 4.6 mmol/L 3.5-5.1 [facility] Protein [Mass/Vol] 7.8 g/dL 6.4-8.2 [facility] Sodium [Moles/Vol] 137 mmol/L 136-145 [facility] WBC (Bld) [#/Vol] 20.5 10*3/uL 4.4-11.0 [facility] Bilirubin Test strip Ql (U)O rdered By: oJse Jaime on 02-21-2024 Bilirubin Ql (U) 1 mg/dL Negative [facility] Comment on above: COLOR OF URINE MAY A FFECT DIPSTICK RESULTS. Determination of erythrocyte mean corpuscular volume (MCV)Ordered By: Jose Jaime on 02-21-2024 MCV (RBC) [Entitic vol] 91.5 fL 81-[address] [facility] Erythrocyte distribution wid th ratioOrdered By: Jose Jaime on 02-21-2024 Erythrocyte distribution width (RBC) [Ratio] 13.3 % 11.6-14.6 [facility] Erythrocyte distribution wid th standard deviationOrdered By: Jose Jaime on 02-21-2024 Erythrocyte distribution width (RBC) [Entitic vol] 45.0 fL 35.1-43.9 [facility] Hematocrit Auto (Bld) [Volum e fraction]Ordered By: Jose Jaime on 02-21-2024 Hematocrit (Bld) [Volume fraction] 36.4 % 37-47 [facility] Immature granulocytes/100 WB C Auto (Bld)Ordered By: Jose Jaime on 02-21-2024 Immature granulocytes/100 WBC (Bld) 0.700 % 0.0-0.9 [facility] Comment on above: IG% - Immature Granu locytes (promyelocytes, myelocytes and metamyelocytes) > 1% indicates that a LEFT SHIFT is Present. Ketones Test strip Ql (U)Ord ered By: Jose Jaime on 02-21-2024 Ketones Ql (U) 5 mg/dl Negative [facility] Laboratory - Chemistry and C hemistry - challengeOrdered By: Jose Jaime on 02-21-2024 Albumin/Globulin [Mass ratio] 0.9 {ratio} 0.9-2.4 [facility] ALP [Catalytic activity/Vol] 58 U/L 45-117 [facility] ALT [Catalytic activity/Vol] 28 U/L 13-56 [facility] CO2 [Moles/Vol] 24.0 mmol/L 21.0-32.0 [facility] Globulin (S) [Mass/Vol] 4.1 g/dL 2.2-4.[address] [facility] Lipase [Catalytic activity/Vol] 18 U/L 13-75 [facility] Comment on above: Please note:LIPASE r evised reference range effective 23. New Lipase methodology. Expected to produce lower values than the previous assay method. NEW Reference Range: 13 - 75 U/L Urea nitrogen/Creatinine [Mass ratio] 14.9 mg/mg 10-20 [facility] Laboratory - CoagulationOrde red By: Jose Jaime on 02-21-2024 INR Coag (Bld) [Relative time] 1.2 {INR} [facility] PT Coag (PPP) [Time] 15.1 s 11.7-14.9 [facility] Laboratory - Hematology and Cell countsOrdered By: Jose Jaime on 02-21-2024 MCH (RBC) [Entitic mass] 30.7 pg 27.0-32.0 [facility] MCHC (RBC) [Mass/Vol] 33.5 g/dL 32-36 [facility] Nucleated RBC/100 WBC (Bld) [Ratio] 0 % 0-5 [facility] Platelet mean volume (Bld) [Entitic vol] 11.3 fL 6.2-12.0 [facility] Platelets (Bld) [#/Vol] 198 10*3/uL 150-450 [facility] Lower GI hemoglobin IA Ql (S tl)Ordered By: Jose Jaime on 02-21-2024 Stool Occult Blood (EDUARDO) Positive [facility] Mucus LM Ql (Urine sed)Order ed By: Jose Jaime on 02-21-2024 Mucus Ql (Urine sed) 0 SEEN /hpf [facility] Nitrite Test strip Ql (U)Ord ered By: Jose Jaime on 02-21-2024 Nitrite Ql (U) Negative Negative [facility] No Panel InformationOrdered By: Jose Jaime on 02-21-2024 Urine RBC 0-5 SEEN /hpf 0-5 [facility] Estimated GFR (MDRD) Amer 30 mL/min >60 [facility] Comment on above: GFR Calc Estimated GFR (MDRD) Non-Af Amer 25 mL/min >60 [facility] Comment on above: Non- GFR Calc Protein Test strip Ql (U)Ord ered By: Jose Jaime on 02-21-2024 Protein Ql (U) 15 mg/dl Negative [facility] RBC Auto (Bld) [#/Vol]Ordere d By: Jose Jaime on 02-21-2024 RBC (Bld) [#/Vol] 3.98 10*6/uL 4.2-5.4 [facility] Serum or plasma calcium loco urement (mass/volume)Ordered By: Jose Jaime on 02-21-2024 Calcium [Mass/Vol] 9.4 mg/dL 8.5-10.1 [facility] Serum or plasma creatinine m easurement (mass/volume)Ordered By: Jose Jaime on 02-21-2024 Creatinine [Mass/Vol] 2.08 mg/dL 0.55-1.02 [facility] Comment on above: The validity of the calculated GFR & GFRAA in patients over 70 years has not been determined. Clinical correlation is essential. Serum or plasma urea nitroge n measurement (mass/volume)Ordered By: Jose Jaime on 02-21-2024 Urea nitrogen [Mass/Vol] 31 mg/dL 7-18 [facility] Squamous epithelial cells de tection in urine sediment by light microscopyOrdered By: Jose Jaime on 02-21-2024 Epithelial cells.squamous LM Ql (Urine sed) 0-5 SEEN /hpf 5-10 [facility] Stool enteric pathogen panel by probe and target amplification methodOrdered By: Dannie Hoyos on 02-21-2024 Gastrointestinal pathogens panel ENRIQUE+probe (Stl) [facility] Thin prep Papanicolaou smear with manual screeningOrdered By: Jose Jaime on 02-21-2024 Thin prep Papanicolaou smear with manual screening 3.7 g/dL 3.2-5.0 [facility] Thin prep Papanicolaou smear with manual screening 35 U/L 15-37 [facility] Thin prep Papanicolaou smear with manual screening 13 5-15 [facility] Urine blood detectionOrdered By: Jose Jaime on 02-21-2024 RBC Ql (U) 10 /ul Negative [facility] Urine clarityOrdered By: Ava Jaime on 02-21-2024 Clarity (U) Clear Clear [facility] Urine color determinationOrd ered By: Jose Jaime on 02-21-2024 Color (U) Yellow Yellow [facility] Urine glucose detectionOrder ed By: Jose Jaime on 02-21-2024 Glucose Ql (U) 1000 mg/dl Normal [facility] Urine leukocyte esterase det ection by dipstickOrdered By: Jose Jaime on 02-21-2024 Leukocyte esterase Test strip Ql (U) 25 /ul Negative [facility] Urine pHOrdered By: Jose navarrete on 02-21-2024 pH (U) 5.0 [pH] 5.0 - 8.0 [facility] Urine sediment bacteria coun t by microscopy (number/high power field)Ordered By: Jose Jaime on 02-21-2024 Bacteria LM.HPF (Urine sed) [#/Area] 0 /[HPF] None Seen [facility] Urine specific gravity measu rementOrdered By: Jose Jaime on 02-21-2024 Specific gravity (U) [Rel density] 1.015 1.002-1.030 [facility] Urine urobilinogen measureme ntOrdered By: Jose Jaime on 02-21-2024 Urobilinogen Ql (U) 1 mg/dl Normal [facility] Absolute lymphocyte countOrd ered By: Breann East on 02-19-2024 Lymphocytes Auto (Unsp spec) [#/Vol] 2.61 10*3/uL 0.83-4.51 [facility] Automated lymphocyte count a s percentage of total leukocytesOrdered By: Breann East on 02-19-2024 Lymphocytes/100 WBC Auto (Unsp spec) 33.5 % 19-41 [facility] Basophil percentageOrdered B y: Breann East on 02-19-2024 Basophils/100 WBC (Bld) 0.5 % 0-[address] [facility] Bilirubin [Mass/Vol] 0.30 mg/dL 0.20-1.00 [facility] Comment on above: For patients on eltr ombopag therapy, use of Dimension [place] TBIL is not recommended. Chloride [Moles/Vol] 107 mmol/L 98-107 [facility] Eosinophils/100 WBC (Bld) 1.8 % 0-5 [facility] Glucose [Mass/Vol] 133 mg/dL 74-106 [facility] Comment on above: Fasting Glucose resu lt greater than or equal to 126 mg/dL suggests DIABETES MELLITUS per A.D.A. criteria. Hemoglobin (Bld) [Mass/Vol] 11.9 g/dL 12.0-15.0 [facility] Monocytes/100 WBC (Bld) 7.3 % 0-10 [facility] Neutrophils (Bld) [#/Vol] 4.4 10*3/uL 2.0-7.7 [facility] Neutrophils/100 WBC (Bld) 56.6 % 47-70 [facility] Potassium [Moles/Vol] 4.6 mmol/L 3.5-5.1 [facility] Protein [Mass/Vol] 7.6 g/dL 6.4-8.2 [facility] Sodium [Moles/Vol] 139 mmol/L 136-145 [facility] WBC (Bld) [#/Vol] 7.8 10*3/uL 4.4-11.0 [facility] Basophil percentage 0 SEEN /hpf 0-5 [facility] Bilirubin Test strip Ql (U)O rdered By: Breann East on 02-19-2024 Bilirubin Ql (U) Negative Negative [facility] Determination of erythrocyte mean corpuscular volume (MCV)Ordered By: Breann East on 02-19-2024 MCV (RBC) [Entitic vol] 93.8 fL 81-[address] [facility] Erythrocyte distribution wid th ratioOrdered By: Breann East on 02-19-2024 Erythrocyte distribution width (RBC) [Ratio] 13.2 % 11.6-14.6 [facility] Erythrocyte distribution wid th standard deviationOrdered By: Breann East on 02-19-2024 Erythrocyte distribution width (RBC) [Entitic vol] 45.7 fL 35.1-43.9 [facility] Hematocrit Auto (Bld) [Volum e fraction]Ordered By: Breann East on 02-19-2024 Hematocrit (Bld) [Volume fraction] 36.6 % 37-47 [facility] Immature granulocytes/100 WB C Auto (Bld)Ordered By: Breann East on 02-19-2024 Immature granulocytes/100 WBC (Bld) 0.300 % 0.0-0.9 [facility] Comment on above: IG% - Immature Granu locytes (promyelocytes, myelocytes and metamyelocytes) > 1% indicates that a LEFT SHIFT is Present. Ketones Test strip Ql (U)Ord ered By: Breann East on 02-19-2024 Ketones Ql (U) Negative Negative [facility] Laboratory - Chemistry and C hemistry - challengeOrdered By: Breann East on 02-19-2024 Albumin/Globulin [Mass ratio] 0.9 {ratio} 0.9-2.4 [facility] ALP [Catalytic activity/Vol] 58 U/L 45-117 [facility] ALT [Catalytic activity/Vol] 20 U/L 13-56 [facility] CO2 [Moles/Vol] 29.0 mmol/L 21.0-32.0 [facility] Globulin (S) [Mass/Vol] 3.9 g/dL 2.2-4.[address] [facility] Urea nitrogen/Creatinine [Mass ratio] 21.1 mg/mg 10-20 [facility] - Hematology and Cell countsOrdered By: Breann East on 02-19-2024 MCH (RBC) [Entitic mass] 30.5 pg 27.0-32.0 [facility] MCHC (RBC) [Mass/Vol] 32.5 g/dL 32-36 [facility] Nucleated RBC/100 WBC (Bld) [Ratio] 0 % 0-5 [facility] Platelet mean volume (Bld) [Entitic vol] 11.0 fL 6.2-12.0 [facility] Platelets (Bld) [#/Vol] 172 10*3/uL 150-450 [facility] Mucus LM Ql (Urine sed)Order ed By: Breann East on 02-19-2024 Mucus Ql (Urine sed) 0 SEEN /hpf [facility] Nitrite Test strip Ql (U)Ord ered By: Breann East on 02-19-2024 Nitrite Ql (U) Negative Negative [facility] No Panel InformationOrdered By: Breann East on 02-19-2024 Estimated Creatinine Clearance Calc 36.28 ml/min [facility] Estimated GFR (MDRD) Amer 51 mL/min >60 [facility] Comment on above: GFR Calc Estimated GFR (MDRD) Non-Af Amer 42 mL/min >60 [facility] Comment on above: Non- GFR Calc Urine RBC 0 SEEN /hpf 0-5 [facility] Protein Test strip Ql (U)Ord ered By: Breann East on 02-19-2024 Protein Ql (U) Negative Negative [facility] RBC Auto (Bld) [#/Vol]Ordere d By: Breann East on 02-19-2024 RBC (Bld) [#/Vol] 3.90 10*6/uL 4.2-5.4 [facility] Serum or plasma calcium loco urement (mass/volume)Ordered By: Breann East on 02-19-2024 Calcium [Mass/Vol] 9.3 mg/dL 8.5-10.1 [facility] Serum or plasma creatinine m easurement (mass/volume)Ordered By: Breann East on 02-19-2024 Creatinine [Mass/Vol] 1.33 mg/dL 0.55-1.02 [facility] Comment on above: The validity of the calculated GFR & GFRAA in patients over 70 years has not been determined. Clinical correlation is essential. Serum or plasma urea nitroge n measurement (mass/volume)Ordered By: Breann East on 02-19-2024 Urea nitrogen [Mass/Vol] 28 mg/dL 7-18 [facility] Squamous epithelial cells de tection in urine sediment by light microscopyOrdered By: Breann East on 02-19-2024 Epithelial cells.squamous LM Ql (Urine sed) 0 SEEN /hpf 5-10 [facility] Thin prep Papanicolaou smear with manual screeningOrdered By: Breann East on 02-19-2024 Thin prep Papanicolaou smear with manual screening 3.7 g/dL 3.2-5.0 [facility] Thin prep Papanicolaou smear with manual screening 23 U/L 15-37 [facility] Thin prep Papanicolaou smear with manual screening 3 5-15 [facility] Urine blood detectionOrdered By: Breann East on 02-19-2024 RBC Ql (U) Negative Negative [facility] Urine clarityOrdered By: Chaz East on 02-19-2024 Clarity (U) Clear Clear [facility] Urine color determinationOrd ered By: Breann East on 02-19-2024 Color (U) Yellow Yellow [facility] Urine glucose detectionOrder ed By: Breann East on 02-19-2024 Glucose Ql (U) 1000 mg/dl Normal [facility] Urine leukocyte esterase det ection by dipstickOrdered By: Breann East on 02-19-2024 Leukocyte esterase Test strip Ql (U) 25 /ul Negative [facility] Urine pHOrdered By: Niurka East on 02-19-2024 pH (U) 6.0 [pH] 5.0 - 8.0 [facility] Urine sediment bacteria coun t by microscopy (number/high power field)Ordered By: Breann East on 02-19-2024 Bacteria LM.HPF (Urine sed) [#/Area] 0 /[HPF] None Seen [facility] Urine specific gravity measu rementOrdered By: Breann East on 02-19-2024 Specific gravity (U) [Rel density] 1.015 1.002-1.030 [facility] Urine urobilinogen measureme ntOrdered By: Breann East on 02-19-2024 Urobilinogen Ql (U) Normal mg/dl Normal [facility] .Auto Diffon 02-14-2024 Basophil, Absolute 0.0 10 3/mcL Normal 0.0-0.2 [facility] ([place]) Comment on above: Performed By: #### L IPID, FERR, GFR, ANEU, CBC, TSH, CMP, ADIFF, A1C, VIDH #### [address] [address] Basophils/100 WBC (Bld) 0.5 % Normal 0.0-2.5 [facility] ([place]) Comment on above: Performed By: #### L IPID, FERR, GFR, ANEU, CBC, TSH, CMP, ADIFF, A1C, VIDH #### [address] [address] Eosinophil, Absolute 0.2 10 3/mcL Normal 0.0-0.4 [facility] ([place]) Comment on above: Performed By: #### L IPID, FERR, GFR, ANEU, CBC, TSH, CMP, ADIFF, A1C, VIDH #### [address] [address] Eosinophils/100 WBC (Bld) 2.5 % Normal 0.0-7.0 [facility] ([place]) Comment on above: Performed By: #### L IPID, FERR, GFR, ANEU, CBC, TSH, CMP, ADIFF, A1C, VIDH #### [address] [address] Lymphocyte, Absolute 2.4 10 3/mcL Normal 0.8-3.9 [facility] ([place]) Comment on above: Performed By: #### L IPID, FERR, GFR, ANEU, CBC, TSH, CMP, ADIFF, A1C, VIDH #### [address] [address] Lymphocytes/100 WBC (Bld) 30.7 % Normal 10.0-50.0 [facility] ([place]) Comment on above: Performed By: #### L IPID, FERR, GFR, ANEU, CBC, TSH, CMP, ADIFF, A1C, VIDH #### [address] [address] Monocyte, Absolute 0.5 10 3/mcL Normal 0.2-1.0 [facility] ([place]) Comment on above: Performed By: #### L IPID, FERR, GFR, ANEU, CBC, TSH, CMP, ADIFF, A1C, VIDH #### [address] [address] Monocytes/100 WBC (Bld) 6.7 % Normal 1.7-13.0 [facility] ([place]) Comment on above: Performed By: #### L IPID, FERR, GFR, ANEU, CBC, TSH, CMP, ADIFF, A1C, VIDH #### [address] [address] Neutrophils/100 WBC (Bld) 59.6 % Normal 37.0-80.0 [facility] ([place]) Comment on above: Performed By: #### L IPID, FERR, GFR, ANEU, CBC, TSH, CMP, ADIFF, A1C, VIDH #### [address] [address] .GFRon 02-14-2024 GFR 51 ml/min/1.73sqm Normal [facility] ([place]) Comment on above: Result Comment: GFR Population [...] ANEU, CBC, TSH, CMP, ADIFF, A1C, VIDH ####[address] [address] GFR Non- 42 ml/min/1.73sqm Normal [facility] ([place]) Comment on above: Result Comment: GFR Population [...] ANEU, CBC, TSH, CMP, ADIFF, A1C, VIDH ####[place] [id number] [id number] .NEUABSon 02-14-2024 Neutrophil, Absolute 4.6 10 3/mcL Normal 2.9-6.2 [facility] ([place]) Comment on above: Performed By: #### L IPID, FERR, GFR, ANEU, CBC, TSH, CMP, ADIFF, A1C, VIDH #### [address] [address] A1Con 02-14-2024 HbA1c (Bld) [Mass fraction] 7.2 % High 4.3-6.4 [facility] ([place]) Comment on above: Performed By: #### L IPID, FERR, GFR, ANEU, CBC, TSH, CMP, ADIFF, A1C, VIDH #### [address] [address] CBCon 02-14-2024 Erythrocyte distribution width (RBC) [Ratio] 13.9 % Normal 11.5-14.5 [facility] ([place]) Comment on above: Performed By: #### L IPID, FERR, GFR, ANEU, CBC, TSH, CMP, ADIFF, A1C, VIDH #### [address] [address] Hematocrit (Bld) [Volume fraction] 34.7 % Low 37.0-47.0 [facility] ([place]) Comment on above: Performed By: #### L IPID, FERR, GFR, ANEU, CBC, TSH, CMP, ADIFF, A1C, VIDH #### [address] [address] Hgb 11.9 G/dL Low 12.0-16.0 [facility] ([place]) Comment on above: Performed By: #### L IPID, FERR, GFR, ANEU, CBC, TSH, CMP, ADIFF, A1C, VIDH #### [address] [address] MCH (RBC) [Entitic mass] 30.8 pg Normal 27.0-31.2 [facility] ([place]) Comment on above: Performed By: #### L IPID, FERR, GFR, ANEU, CBC, TSH, CMP, ADIFF, A1C, VIDH #### [address] [address] MCHC 34.4 G/dL Normal 33.0-37.0 [facility] ([place]) Comment on above: Performed By: #### L IPID, FERR, GFR, ANEU, CBC, TSH, CMP, ADIFF, A1C, VIDH #### [address] [address] MCV (RBC) [Entitic vol] 89.7 fL Normal 80.0-94.0 [facility] ([place]) Comment on above: Performed By: #### L IPID, FERR, GFR, ANEU, CBC, TSH, CMP, ADIFF, A1C, VIDH #### [address] [address] Platelet 154 10 3/mcL Normal 130-400 [facility] ([place]) Comment on above: Performed By: #### L IPID, FERR, GFR, ANEU, CBC, TSH, CMP, ADIFF, A1C, VIDH #### [address] [address] Platelet mean volume (Bld) [Entitic vol] 9.1 fL Normal 7.4-10.4 [facility] ([place]) Comment on above: Performed By: #### L IPID, FERR, GFR, ANEU, CBC, TSH, CMP, ADIFF, A1C, VIDH #### [address] [address] RBC 3.87 10 6/mcL Low 4.20-5.40 [facility] ([place]) Comment on above: Performed By: #### L IPID, FERR, GFR, ANEU, CBC, TSH, CMP, ADIFF, A1C, VIDH #### [place] [address] [place], [place] [address] WBC 7.8 10 3/mcL Normal 4.6-10.8 [facility] ([place]) Comment on above: Performed By: #### L IPID, FERR, GFR, ANEU, CBC, TSH, CMP, ADIFF, A1C, VIDH #### [address] [address] CMPon 02-14-2024 Albumin Level 3.7 G/dL Normal 3.4-4.8 [facility] ([place]) Comment on above: Performed By: #### L IPID, FERR, GFR, ANEU, CBC, TSH, CMP, ADIFF, A1C, VIDH ####[place] [address] [place], [place] [address] Albumin/Globulin [Mass ratio] 1.1 {ratio} Normal 1.1-2.5 [facility] ([place]) Comment on above: Performed By: #### L IPID, FERR, GFR, ANEU, CBC, TSH, CMP, ADIFF, A1C, VIDH ####[address] [place], [place] [address] ALP [Catalytic activity/Vol] 61 U/L Normal 40-135 [facility] ([place]) Comment on above: Performed By: #### L IPID, FERR, GFR, ANEU, CBC, TSH, CMP, ADIFF, A1C, VIDH ####[address] [place], [place] [address] ALT [Catalytic activity/Vol] 21 U/L Normal 14-59 [facility] ([place]) Comment on above: Performed By: #### L IPID, FERR, GFR, ANEU, CBC, TSH, CMP, ADIFF, A1C, VIDH ####[address] [place], [place] [address] AST [Catalytic activity/Vol] 19 U/L Normal 10-40 [facility] ([place]) Comment on above: Performed By: #### L IPID, FERR, GFR, ANEU, CBC, TSH, CMP, ADIFF, A1C, VIDH ####[address] [place], [place] [address] Bili Total 0.3 mg/dL Normal 0.2-1.0 [facility] ([place]) Comment on above: Result Comment: Use of this assay is not recommended for patients undergoing treatment with eltrombopag due to the potential for falsely elevated results. Performed By: #### L IPID, FERR, GFR, ANEU, CBC, TSH, CMP, ADIFF, A1C, VIDH ####[address] [place], [place] [address] BUN/Creatinine Ratio 23 ratio Normal 7-27 [facility] ([place]) Comment on above: Performed By: #### L IPID, FERR, GFR, ANEU, CBC, TSH, CMP, ADIFF, A1C, VIDH ####[address] [place], [place] [address] Calcium [Mass/Vol] 9.1 mg/dL Normal 8.4-10.2 [facility] ([place]) Comment on above: Performed By: #### L IPID, FERR, GFR, ANEU, CBC, TSH, CMP, ADIFF, A1C, VIDH ####[address] [place], [place] [address] Chloride [Moles/Vol] 103 mmol/L Normal 98-107 [facility] ([place]) Comment on above: Performed By: #### L IPID, FERR, GFR, ANEU, CBC, TSH, CMP, ADIFF, A1C, VIDH ####[address] [place], [place] [address] CO2 [Moles/Vol] 29 mmol/L Normal 23-31 [facility] ([place]) Comment on above: Performed By: #### L IPID, FERR, GFR, ANEU, CBC, TSH, CMP, ADIFF, A1C, VIDH ####[address] [place], [place] [address] Creatinine [Mass/Vol] 1.26 mg/dL High 0.55-1.02 [facility] ([place]) Comment on above: Performed By: #### L IPID, FERR, GFR, ANEU, CBC, TSH, CMP, ADIFF, A1C, VIDH ####[address] [place], [place] [address] Electrolyte Balance 8.0 mEq/L Normal 4.0-15.0 [facility] ([place]) Comment on above: Performed By: #### L IPID, FERR, GFR, ANEU, CBC, TSH, CMP, ADIFF, A1C, VIDH ####[address] [place], [place] [address] Globulin 3.3 G/dL Normal [facility] ([place]) Comment on above: Performed By: #### L IPID, FERR, GFR, ANEU, CBC, TSH, CMP, ADIFF, A1C, VIDH ####[address] [place], [place] [address] Glucose [Mass/Vol] 126 mg/dL High 83-110 [facility] ([place]) Comment on above: Performed By: #### L IPID, FERR, GFR, ANEU, CBC, TSH, CMP, ADIFF, A1C, VIDH ####[address] [place], [place] [address] Potassium [Moles/Vol] 4.6 mmol/L Normal 3.5-5.1 [facility] ([place]) Comment on above: Performed By: #### L IPID, FERR, GFR, ANEU, CBC, TSH, CMP, ADIFF, A1C, VIDH ####[address] [place], [place] [address] Sodium [Moles/Vol] 140 mmol/L Normal 136-145 [facility] ([place]) Comment on above: Performed By: #### L IPID, FERR, GFR, ANEU, CBC, TSH, CMP, ADIFF, A1C, VIDH ####[place] [address] [place], [place] [address] Total Protein 7.0 G/dL Normal 6.4-8.2 [facility] ([place]) Comment on above: Performed By: #### L IPID, FERR, GFR, ANEU, CBC, TSH, CMP, ADIFF, A1C, VIDH ####[id number] [place], [place] [address] Urea nitrogen [Mass/Vol] 29 mg/dL High 7-18 [facility] ([place]) Comment on above: Performed By: #### L IPID, FERR, GFR, ANEU, CBC, TSH, CMP, ADIFF, A1C, VIDH ####[address] [place], [place] [address] Joselyn 02-14-2024 Ferritin [Mass/Vol] 155.0 ng/mL Normal 8.0-252.0 [facility] ([place]) Comment on above: Performed By: #### L IPID, FERR, GFR, ANEU, CBC, TSH, CMP, ADIFF, A1C, VIDH #### [place] [address] [place], [place] [address] LIPIDon 02-14-2024 Cholesterol [Mass/Vol] 124 mg/dL Normal 0-200 [facility] ([place]) Comment on above: Result Comment: Chol esterol Reference Interval: Less than 200 Desirable 200-239 Borderline high risk 240 and above High risk Performed By: #### L IPID, FERR, GFR, ANEU, CBC, TSH, CMP, ADIFF, A1C, VIDH ####[id number] [place], [place] [address] Cholesterol in HDL [Mass/Vol] 38 mg/dL Low 40-60 [facility] ([place]) Comment on above: Performed By: #### L IPID, FERR, GFR, ANEU, CBC, TSH, CMP, ADIFF, A1C, VIDH ####[id number] [place], [place] [address] Cholesterol in LDL [Mass/Vol] 37 mg/dL Normal 0-130 [facility] ([place]) Comment on above: Performed By: #### L IPID, FERR, GFR, ANEU, CBC, TSH, CMP, ADIFF, A1C, VIDH ####[address] [place], [place] [address] Triglyceride [Mass/Vol] 246 mg/dL High 0-150 [facility] ([place]) Comment on above: Result Comment: Trig lyceride Reference Interval: Less than 150 Normal 150-199 Borderline high risk 200-499 High risk 500 or higher Very high risk Performed By: #### L IPID, FERR, GFR, ANEU, CBC, TSH, CMP, ADIFF, A1C, VIDH ####Katie [id number] [place], [place] [address] TSHon 02-14-2024 TSH Qn 2.18 m[IU]/L Normal 0.36-3.74 [facility] ([place]) Comment on above: Performed By: #### L IPID, FERR, GFR, ANEU, CBC, TSH, CMP, ADIFF, A1C, VIDH #### Katie [address] [place], [place] [address] VIDHon 02-14-2024 Vit. D 25-Hydroxy 55.4 ng/mL Normal [facility] ([place]) Comment on above: Result Comment: Inte rpretive Values Based on Total 25(OH) Vitamin D: Deficient <20 ng/mL Insufficient 20 - <30 ng/mL Sufficient 30-100 ng/mL Performed By: #### L IPID, FERR, GFR, ANEU, CBC, TSH, CMP, ADIFF, A1C, VIDH ####[id number] [place], [place] [address] BD BONE DENSITY DEXA AXIAL S KELETONon [...] 12/27/2023 3:14:57 PM Ordering Provider: ADRIENNE Bassett [facility] ([place]) MA MAMMOGRAM SCREENING BILAT ERAL W/TOMOon 12-27-2023 MA MAMMOGRAM SCREENING BILATERAL W/YOAV ORIGINAL FROM: [facility] [address] [place], [place] [address] PROCEDURE FOR: MANSI CARO [address] [place] [address] Home: PID#: [id number] Exam#: [id number] : 1955 Age: 68 TO: ADRIENNE BYERS DO [address] [place] [address] Fax: NO FAX EXAMINATION: SCREENING DIGITAL BILATERAL [...] addition to annual mammographic screening per the [employer]. BIRADS: MAMMOGRAM BI-RADS: 1: Negative RECALL: 1 year screening RECALL TYPE: mammo LETTER SENT: Normal BI-RADS 1 and 2 Interpreted by: Lesley Levine Preliminary Report By: Lesley Levine Electronically signed By Lesley Levine Dictated Date: 12/27/2023 8:56:06 PM Prelim Date: 12/27/2023 8:59:32 PM Sign Date: 12/27/2023 8:59:32 PM Ordering Provider: ADRIENNE BYERS Repairer Pump: CHARLEE BARCENAS RT(R)(M)(CT) letter sent: Normal BI-RADS 1 and 2 Mammogram BI-RADS: 1 Negative Normal [facility] ([place]) Thin prep Papanicolaou smear with manual screeningOrdered By: Uday Orosco on 12-08-2023 Thin prep Papanicolaou smear with manual screening 129 mg/dL 74-106 [facility] Comment on above: MANAGEMENT OF PATIEN [...] 10-25-2023 Cholesterol [Mass/Vol] 123 mg/dL Normal 0-200 [facility] ([place]) Comment on above: Result Comment: Chol esterol Reference Interval: Less than 200 Desirable 200-239 Borderline high risk 240 and above High risk Performed By: #### C RE, GFR #### [address] [address] Cholesterol in HDL [Mass/Vol] 44 mg/dL Normal 40-60 [facility] ([place]) Comment on above: Performed By: #### C RE, GFR #### [address] [address] Cholesterol in LDL [Mass/Vol] 51 mg/dL Normal 0-130 [facility] ([place]) Comment on above: Performed By: #### C RE, GFR #### [address] [address] Triglyceride [Mass/Vol] 139 mg/dL Normal 0-150 [facility] ([place]) Comment on above: Result Comment: Trig lyceride Reference Interval: Less than 150 Normal 150-199 Borderline high risk 200-499 High risk 500 or higher Very high risk Performed By: #### C RE, GFR #### Katie [address] [place], [place] [address] PBNPon 10-25-2023 Natriuretic peptide B (Bld) [Mass/Vol] 297 pg/mL High 0-125 [facility] ([place]) Comment on above: Result Comment: NT-p roBNP results of less than 300 pg/mL effectively rules out acute congestive heart failure with 99% negative predictive value. Performed By: #### L IPID, PBNP ####[address] [place], [place] [address] Glucose Glucometer (BldC) [M ass/Vol]Ordered By: Camacho Aguilar on 10-12-2023 Glucose [Mass/Vol] 207 mg/dL 74-106 [facility] Comment on above: MANAGEMENT OF PATIEN T CARE PER NURSING PROTOCOL Absolute lymphocyte countOrd ered By: Tony Mayer on 10-11-2023 Lymphocytes Auto (Unsp spec) [#/Vol] 2.84 10*3/uL 0.83-4.51 [facility] Basophil percentageOrdered B y: Tony Mayer on 10-11-2023 Basophil percentage 3.6 mg/dL 2.5-4.9 [facility] Basophils/100 WBC (Bld) 0.8 % 0-[address] [facility] Chloride [Moles/Vol] 111 mmol/L 98-107 [facility] Eosinophils/100 WBC (Bld) 2.5 % 0-5 [facility] Glucose [Mass/Vol] 123 mg/dL 74-106 [facility] Comment on above: Fasting Glucose resu lt from 100 to 125 mg/dL suggests IMPAIRED HOMEOSTASIS per A.D.A. criteria. Neutrophils (Bld) [#/Vol] 1.7 10*3/uL 2.0-7.7 [facility] Neutrophils/100 WBC (Bld) 33.5 % 47-70 [facility] Potassium [Moles/Vol] 4.0 mmol/L 3.5-5.1 [facility] Sodium [Moles/Vol] 142 mmol/L 136-145 [facility] WBC (Bld) [#/Vol] 5.2 10*3/uL 4.4-11.0 [facility] Blood erythrocytes count (nu mber/volume)Ordered By: Tony Mayer on 10-11-2023 RBC (Bld) [#/Vol] 3.75 10*6/uL 4.2-5.4 [facility] Blood hemoglobin measurement (mass/volume)Ordered By: Tony Mayer on 10-11-2023 Hemoglobin (Bld) [Mass/Vol] 11.5 g/dL 12.0-15.0 [facility] Blood lymphocytes/100 leukoc ytesOrdered By: Tony Mayer on 10-11-2023 Lymphocytes/100 WBC (Bld) 54.9 % 19-41 [facility] Blood monocytes/100 leukocyt esOrdered By: Tony Mayer on 10-11-2023 Monocytes/100 WBC (Bld) 8.3 % 0-[address] [facility] Blood platelet mean volumeOr dered By: Tony Mayer on 10-11-2023 Platelet mean volume (Bld) [Entitic vol] 10.8 fL 6.2-12.0 [facility] Determination of erythrocyte mean corpuscular volume (MCV)Ordered By: Tony Mayer on 10-11-2023 MCV (RBC) [Entitic vol] 96.0 fL 81-[address] [facility] Hematocrit Auto (Bld) [Volum e fraction]Ordered By: Tony Mayer on 10-11-2023 Hematocrit (Bld) [Volume fraction] 36.0 % 37-47 [facility] - Chemistry and C hemistry - challengeOrdered By: Tony Mayer on 10-11-2023 CO2 [Moles/Vol] 25.0 mmol/L 21.0-32.0 [facility] Magnesium [Mass/Vol] 2.2 mg/dL 1.6-2.6 [facility] Urea nitrogen/Creatinine [Mass ratio] 27.2 mg/mg -20 [facility] - Hematology and Cell countsOrdered By: Tony Mayer on 10-11-2023 Erythrocyte distribution width (RBC) [Entitic vol] 48.7 fL 35.1-43.9 [facility] Erythrocyte distribution width (RBC) [Ratio] 13.7 % 11.6-14.6 [facility] Immature granulocytes/100 WBC (Bld) 0.000 % 0.0-0.9 [facility] Comment on above: IG% - Immature Granu locytes (promyelocytes, myelocytes and metamyelocytes) > 1% indicates that a LEFT SHIFT is Present. MCH (RBC) [Entitic mass] 30.7 pg 27.0-32.0 [facility] Nucleated RBC/100 WBC (Bld) [Ratio] 0 % 0-5 [facility] MCHC Auto (RBC) [Mass/Vol]Or dered By: Tony Mayer on 10-11-2023 MCHC (RBC) [Mass/Vol] 31.9 g/dL 32-36 [facility] No Panel InformationOrdered By: Tony Mayer on 10-11-2023 Estimated Creatinine Clearance Calc 56.77 ml/min [facility] Estimated GFR (MDRD) Amer 78 mL/min >60 [facility] Comment on above: GFR Calc Estimated GFR (MDRD) Non-Af Amer 64 mL/min >60 [facility] Comment on above: Non- GFR Calc Platelets bldOrdered By: Jesu Mayer on 10-11-2023 Platelets (Bld) [#/Vol] 144 10*3/uL 150-450 [facility] Serum or plasma calcium loco urement (mass/volume)Ordered By: Tony Mayer on 10-11-2023 Calcium [Mass/Vol] 8.7 mg/dL 8.5-10.1 [facility] Serum or plasma creatinine m easurement (mass/volume)Ordered By: Tony Mayer on 10-11-2023 Creatinine [Mass/Vol] 0.92 mg/dL 0.55-1.02 [facility] Comment on above: The validity of the calculated GFR & GFRAA in patients over 70 years has not been determined. Clinical correlation is essential. Serum or plasma urea nitroge n measurement (mass/volume)Ordered By: Tony Mayer on 10-11-2023 Urea nitrogen [Mass/Vol] 25 mg/dL 7-18 [facility] Thin prep Papanicolaou smear with manual screeningOrdered By: Tony Mayer on 11-20-2023 Thin prep Papanicolaou smear with manual screening 6 5-15 [facility] Basophil percentageOrdered B y: Jaci Greco on 10-08-2023 Bilirubin [Mass/Vol] 0.30 mg/dL 0.20-1.00 [facility] Comment on above: For patients on eltr ombopag therapy, use of Dimension [place] TBIL is not recommended. Protein [Mass/Vol] 6.5 g/dL 6.4-8.2 [facility] Laboratory - Chemistry and C hemistry - challengeOrdered By: Jaci Greco on 10-08-2023 ALP [Catalytic activity/Vol] 48 U/L 45-117 [facility] ALT [Catalytic activity/Vol] 17 U/L 13-56 [facility] Globulin (S) [Mass/Vol] 3.2 g/dL 2.2-4.[address] [facility] Serum or plasma albumin loco urement (mass/volume)Ordered By: [facility] Fannie on 10-08-2023 Albumin [Mass/Vol] 3.3 g/dL 3.2-5.0 [facility] Serum or plasma albumin/glob ulin mass ratioOrdered By: [facility] Fannie on 10-08-2023 Albumin/Globulin [Mass ratio] 1.0 {ratio} 0.9-2.4 [facility] Thin prep Papanicolaou smear with manual screeningOrdered By: [facility] Fannie on 10-08-2023 Thin prep Papanicolaou smear with manual screening 18 U/L 15-37 [facility] Whole blood hemoglobin A1c/t otal hemoglobin ratio (mass fraction)Ordered By: Jaci Greco on 10-08-2023 HbA1c (Bld) [Mass fraction] 6.8 % 3.8-5.6 [facility] Comment on above: Normal < 5.7 % Predi abetic 5.7 - 6.4 % Diabetic >or= 6.5 % Please note range changes. Absolute lymphocyte countOrd ered By: David Le on 10-07-2023 Lymphocytes Auto (Unsp spec) [#/Vol] 3.02 10*3/uL 0.83-4.51 [facility] Basophil percentageOrdered B y: David Best on 10-07-2023 Basophils/100 WBC (Bld) 0.6 % 0-[address] [facility] Chloride [Moles/Vol] 108 mmol/L 98-107 [facility] Eosinophils/100 WBC (Bld) 0.9 % 0-5 [facility] Glucose [Mass/Vol] 137 mg/dL 74-106 [facility] Comment on above: Fasting Glucose resu lt greater than or equal to 126 mg/dL suggests DIABETES MELLITUS per A.D.A. criteria. Neutrophils (Bld) [#/Vol] 2.7 10*3/uL 2.0-7.7 [facility] Neutrophils/100 WBC (Bld) 41.7 % 47-70 [facility] Potassium [Moles/Vol] 4.4 mmol/L 3.5-5.1 [facility] Sodium [Moles/Vol] 140 mmol/L 136-145 [facility] WBC (Bld) [#/Vol] 6.4 10*3/uL 4.4-11.0 [facility] Blood erythrocytes count (nu mber/volume)Ordered By: David Best on 10-07-2023 RBC (Bld) [#/Vol] 3.91 10*6/uL 4.2-5.4 [facility] Blood hemoglobin measurement (mass/volume)Ordered By: David Best on 10-07-2023 Hemoglobin (Bld) [Mass/Vol] 12.0 g/dL 12.0-15.0 [facility] Blood lymphocytes/100 leukoc ytesOrdered By: David Best on 10-07-2023 Lymphocytes/100 WBC (Bld) 47.6 % 19-41 [facility] Blood monocytes/100 leukocyt esOrdered By: David Best on 10-07-2023 Monocytes/100 WBC (Bld) 9.0 % 0-10 [facility] Blood platelet mean volumeOr dered By: David Best on 10-07-2023 Platelet mean volume (Bld) [Entitic vol] 11.7 fL 6.2-12.0 [facility] Determination of erythrocyte mean corpuscular volume (MCV)Ordered By: David Best on 10-07-2023 MCV (RBC) [Entitic vol] 96.7 fL 81-99 [facility] Glucose Glucometer (BldC) [M ass/Vol]Ordered By: Alonso Marte on 10-07-2023 Glucose [Mass/Vol] 126 mg/dL 74-106 [facility] Comment on above: MANAGEMENT OF PATIEN T CARE PER NURSING PROTOCOL Hematocrit Auto (Bld) [Volum e fraction]Ordered By: David Best on 10-07-2023 Hematocrit (Bld) [Volume fraction] 37.8 % 37-47 [facility] INR in Blood by Coagulation assayOrdered By: David Best on 10-07-2023 INR Coag (Bld) [Relative time] 1.0 {INR} [facility] - Chemistry and C hemistry - challengeOrdered By: David Best on 10-07-2023 CO2 [Moles/Vol] 26.0 mmol/L 21.0-32.0 [facility] Urea nitrogen/Creatinine [Mass ratio] 23.1 mg/mg 10-20 [facility] - Chemistry and C hemistry - challengeOrdered By: Jaci White on 10-07-2023 Magnesium [Mass/Vol] 2.5 mg/dL 1.6-2.6 [facility] Laboratory - CoagulationOrde red By: David Best on 10-07-2023 aPTT Coag (Bld) [Time] 28.7 s 24.1-36.2 [facility] PT Coag (PPP) [Time] 12.9 s 11.7-14.9 [facility] Laboratory - Hematology and Cell countsOrdered By: David Best on 10-07-2023 Erythrocyte distribution width (RBC) [Entitic vol] 48.8 fL 35.1-43.9 [facility] Erythrocyte distribution width (RBC) [Ratio] 13.6 % 11.6-14.6 [facility] Immature granulocytes/100 WBC (Bld) 0.200 % 0.0-0.9 [facility] Comment on above: IG% - Immature Granu locytes (promyelocytes, myelocytes and metamyelocytes) > 1% indicates that a LEFT SHIFT is Present. MCH (RBC) [Entitic mass] 30.7 pg 27.0-32.0 [facility] Nucleated RBC/100 WBC (Bld) [Ratio] 0 % 0-5 [facility] MCHC Auto (RBC) [Mass/Vol]Or dered By: David Best on 10-07-2023 MCHC (RBC) [Mass/Vol] 31.7 g/dL 32-36 [facility] No Panel InformationOrdered By: David Best on 10-07-2023 Estimated Creatinine Clearance Calc 44.64 ml/min [facility] Estimated GFR (MDRD) Amer 59 mL/min >60 [facility] Comment on above: GFR Calc Estimated GFR (MDRD) Non-Af Amer 49 mL/min >60 [facility] Comment on above: Non- GFR Calc Troponin I High Sensitivity 8 pg/mL 3.0-54.0 [facility] Comment on above: Please Note: New Nasrin t Units and Gender Specific Reference Ranges. For more information see Policy Stat Procedure [place] High Sensitivity Troponin (TNIH) and attachments. Platelets bldOrdered By: Jefferson Best on 10-07-2023 Platelets (Bld) [#/Vol] 153 10*3/uL 150-450 [facility] Serum or plasma calcium loco urement (mass/volume)Ordered By: David Best on 10-07-2023 Calcium [Mass/Vol] 9.2 mg/dL 8.5-10.1 [facility] Serum or plasma creatinine m easurement (mass/volume)Ordered By: David Best on 10-07-2023 Creatinine [Mass/Vol] 1.17 mg/dL 0.55-1.02 [facility] Comment on above: The validity of the calculated GFR & GFRAA in patients over 70 years has not been determined. Clinical correlation is essential. Serum or plasma urea nitroge n measurement (mass/volume)Ordered By: David Best on 10-07-2023 Urea nitrogen [Mass/Vol] 27 mg/dL 7-18 [facility] Thin prep Papanicolaou smear with manual screeningOrdered By: David Best on 10-07-2023 Thin prep Papanicolaou smear with manual screening 6 5-15 [facility] Absolute lymphocyte countOrd ered By: Alonso Marte on 10-02-2023 Lymphocytes Auto (Unsp spec) [#/Vol] 2.34 10*3/uL 0.83-4.51 [facility] Basophil percentageOrdered B y: Alonso Marte on 10-02-2023 Basophils/100 WBC (Bld) 0.7 % 0-[address] [facility] Chloride [Moles/Vol] 110 mmol/L 98-107 [facility] Eosinophils/100 WBC (Bld) 2.1 % 0-5 [facility] Glucose [Mass/Vol] 154 mg/dL 74-106 [facility] Comment on above: Fasting Glucose resu lt greater than or equal to 126 mg/dL suggests DIABETES MELLITUS per A.D.A. criteria. Neutrophils (Bld) [#/Vol] 2.4 10*3/uL 2.0-7.7 [facility] Neutrophils/100 WBC (Bld) 45.6 % 47-70 [facility] Potassium [Moles/Vol] 3.7 mmol/L 3.5-5.1 [facility] Sodium [Moles/Vol] 140 mmol/L 136-145 [facility] WBC (Bld) [#/Vol] 5.4 10*3/uL 4.4-11.0 [facility] Blood erythrocytes count (nu mber/volume)Ordered By: Alonso Marte on 10-02-2023 RBC (Bld) [#/Vol] 3.88 10*6/uL 4.2-5.4 [facility] Blood hemoglobin measurement (mass/volume)Ordered By: Alonso Marte on 10-02-2023 Hemoglobin (Bld) [Mass/Vol] 11.8 g/dL 12.0-15.0 [facility] Blood lymphocytes/100 leukoc ytesOrdered By: Alonso Marte on 10-02-2023 Lymphocytes/100 WBC (Bld) 43.7 % 19-41 [facility] Blood monocytes/100 leukocyt esOrdered By: Alonso Marte on 10-02-2023 Monocytes/100 WBC (Bld) 7.7 % 0-[address] [facility] Blood platelet mean volumeOr dered By: Alonso Marte on 10-02-2023 Platelet mean volume (Bld) [Entitic vol] 11.4 fL 6.2-12.0 [facility] Determination of erythrocyte mean corpuscular volume (MCV)Ordered By: Alonso Marte on 10-02-2023 MCV (RBC) [Entitic vol] 96.6 fL 81-[address] [facility] Hematocrit Auto (Bld) [Volum e fraction]Ordered By: Alonso Marte on 10-02-2023 Hematocrit (Bld) [Volume fraction] 37.5 % 37-47 [facility] - Chemistry and C hemistry - challengeOrdered By: Alonso Marte on 10-02-2023 CO2 [Moles/Vol] 28.0 mmol/L 21.0-32.0 [facility] Urea nitrogen/Creatinine [Mass ratio] 17.6 mg/mg 10-20 [facility] - Hematology and Cell countsOrdered By: Alonso Marte on 10-02-2023 Erythrocyte distribution width (RBC) [Entitic vol] 47.2 fL 35.1-43.9 [facility] Erythrocyte distribution width (RBC) [Ratio] 13.3 % 11.6-14.6 [facility] Immature granulocytes/100 WBC (Bld) 0.200 % 0.0-0.9 [facility] Comment on above: IG% - Immature Granu locytes (promyelocytes, myelocytes and metamyelocytes) > 1% indicates that a LEFT SHIFT is Present. MCH (RBC) [Entitic mass] 30.4 pg 27.0-32.0 [facility] Nucleated RBC/100 WBC (Bld) [Ratio] 0 % 0-5 [facility] MCHC Auto (RBC) [Mass/Vol]Or dered By: Alonso Marte on 10-02-2023 MCHC (RBC) [Mass/Vol] 31.5 g/dL 32-36 [facility] No Panel InformationOrdered By: Alonso Marte on 10-02-2023 Estimated Creatinine Clearance Calc 52.60 ml/min [facility] Estimated GFR (MDRD) Amer 73 mL/min >60 [facility] Comment on above: GFR Calc Estimated GFR (MDRD) Non-Af Amer 61 mL/min >60 [facility] Comment on above: Non- GFR Calc Platelets bldOrdered By: Alonso Marte on 10-02-2023 Platelets (Bld) [#/Vol] 136 10*3/uL 150-450 [facility] Serum or plasma calcium loco urement (mass/volume)Ordered By: Alonso Marte on 10-02-2023 Calcium [Mass/Vol] 9.0 mg/dL 8.5-10.1 [facility] Serum or plasma creatinine m easurement (mass/volume)Ordered By: Alonso Marte on 10-02-2023 Creatinine [Mass/Vol] 0.96 mg/dL 0.55-1.02 [facility] Comment on above: The validity of the calculated GFR & GFRAA in patients over 70 years has not been determined. Clinical correlation is essential. Serum or plasma urea nitroge n measurement (mass/volume)Ordered By: Alonso Marte on 10-02-2023 Urea nitrogen [Mass/Vol] 17 mg/dL 7-18 [facility] Thin prep Papanicolaou smear with manual screeningOrdered By: Alonso Marte on 10-02-2023 Thin prep Papanicolaou smear with manual screening 2 5-15 [facility] Glucose Glucometer (BldC) [M ass/Vol]Ordered By: Ben Johnson on 10-01-2023 Glucose [Mass/Vol] 182 mg/dL 74-106 [facility] Comment on above: MANAGEMENT OF PATIEN T CARE PER NURSING PROTOCOL Basophil percentageOrdered B y: Tony Mejia on 09-29-2023 Cholesterol [Mass/Vol] 106 mg/dL <200 [facility] Comment on above: <200 mg/dL Desirable 200-240 mg/dL Borderline >240 mg/dL High Risk Triglyceride [Mass/Vol] 145 mg/dL <[address] [facility] Comment on above: The drugs N-Acetylcy steine and Metamizole may falsely depress this assay.Serum Triglycerides Reference Interval Normal <150 mg/dL Borderline high 150 - 199 mg/dL High 200 - 499 mg/dL Very High > or = 500 mg/dL Serum or plasma cholesterol in HDL measurement (mass/volume)Ordered By: Tony Mejia on 09-29-2023 Cholesterol in HDL [Mass/Vol] 41 mg/dL >40 [facility] Comment on above: The drugs N-Acetylcy steine and Metamizole may falsely depress this assay. Reference Range HDL <40 mg/dL Low HDL Cholesterol HDL >or= 60 mg/dL High HDL Cholesterol Serum or plasma cholesterol in VLDL measurement (mass/volume)Ordered By: Tony Mejia on 09-29-2023 Cholesterol in VLDL [Mass/Vol] 29 mg/dL 5-40 [facility] Serum or plasma low density lipoprotein (LDL) cholesterol measurement (mass/volume)Ordered By: Tony Mejia on 09-29-2023 Cholesterol in LDL [Mass/Vol] 36 mg/dL 0-130 [facility] Absolute lymphocyte countOrd ered By: Uday Orosco on 09-28-2023 Lymphocytes Auto (Unsp spec) [#/Vol] 3.61 10*3/uL 0.83-4.51 [facility] Basophil percentageOrdered B y: Uday Orosco on 09-28-2023 Basophil percentage 0 SEEN /hpf 0-5 [facility] Basophils/100 WBC (Bld) 0.6 % 0-[address] [facility] Chloride [Moles/Vol] 106 mmol/L 98-107 [facility] Eosinophils/100 WBC (Bld) 1.0 % 0-5 [facility] Glucose [Mass/Vol] 159 mg/dL 74-106 [facility] Comment on above: Fasting Glucose resu lt greater than or equal to 126 mg/dL suggests DIABETES MELLITUS per A.D.A. criteria. Neutrophils (Bld) [#/Vol] 3.0 10*3/uL 2.0-7.7 [facility] Neutrophils/100 WBC (Bld) 40.8 % 47-70 [facility] Potassium [Moles/Vol] 3.9 mmol/L 3.5-5.1 [facility] Sodium [Moles/Vol] 140 mmol/L 136-145 [facility] WBC (Bld) [#/Vol] 7.3 10*3/uL 4.4-11.0 [facility] Bilirubin Test strip Ql (U)O rdered By: Uday Orosco on 09-28-2023 Bilirubin Ql (U) Negative Negative [facility] Blood erythrocytes count (nu mber/volume)Ordered By: Uday Orosco on 09-28-2023 RBC (Bld) [#/Vol] 4.14 10*6/uL 4.2-5.4 [facility] Blood hemoglobin measurement (mass/volume)Ordered By: Uday Orosco on 09-28-2023 Hemoglobin (Bld) [Mass/Vol] 12.5 g/dL 12.0-15.0 [facility] Blood lymphocytes/100 leukoc ytesOrdered By: Uday Orosco on 09-28-2023 Lymphocytes/100 WBC (Bld) 49.7 % 19-41 [facility] Blood monocytes/100 leukocyt esOrdered By: Uday Orosco on 09-28-2023 Monocytes/100 WBC (Bld) 7.6 % 0-[address] [facility] Blood platelet mean volumeOr dered By: Uday Orosco on 09-28-2023 Platelet mean volume (Bld) [Entitic vol] 11.1 fL 6.2-12.0 [facility] Determination of erythrocyte mean corpuscular volume (MCV)Ordered By: Uday Orosco on 09-28-2023 MCV (RBC) [Entitic vol] 95.7 fL 81-[address] [facility] Hematocrit Auto (Bld) [Volum e fraction]Ordered By: Uday Orosco on 09-28-2023 Hematocrit (Bld) [Volume fraction] 39.6 % 37-47 [facility] INR in Blood by Coagulation assayOrdered By: Uday Orosco on 09-28-2023 INR Coag (Bld) [Relative time] 1.0 {INR} [facility] Ketones Test strip Ql (U)Ord ered By: Uday Orosco on 09-28-2023 Ketones Ql (U) Negative Negative [facility] - Chemistry and C hemistry - challengeOrdered By: Uday Orosco on 09-28-2023 CO2 [Moles/Vol] 28.0 mmol/L 21.0-32.0 [facility] Urea nitrogen/Creatinine [Mass ratio] 24.5 mg/mg 10-20 [facility] - CoagulationOrde red By: Uday Orosco on 09-28-2023 aPTT Coag (Bld) [Time] 24.8 s 24.1-36.2 [facility] PT Coag (PPP) [Time] 12.7 s 11.7-14.9 [facility] Laboratory - Hematology and Cell countsOrdered By: Uday Orosco on 09-28-2023 Erythrocyte distribution width (RBC) [Entitic vol] 47.4 fL 35.1-43.9 [facility] Erythrocyte distribution width (RBC) [Ratio] 13.3 % 11.6-14.6 [facility] Immature granulocytes/100 WBC (Bld) 0.300 % 0.0-0.9 [facility] Comment on above: IG% - Immature Granu locytes (promyelocytes, myelocytes and metamyelocytes) > 1% indicates that a LEFT SHIFT is Present. MCH (RBC) [Entitic mass] 30.2 pg 27.0-32.0 [facility] Nucleated RBC/100 WBC (Bld) [Ratio] 0 % 0-5 [facility] MCHC Auto (RBC) [Mass/Vol]Or dered By: Uday Orosco on 09-28-2023 MCHC (RBC) [Mass/Vol] 31.6 g/dL 32-36 [facility] Mucus LM Ql (Urine sed)Order ed By: Uday Orosco on 09-28-2023 Mucus Ql (Urine sed) 0 SEEN /hpf [facility] Nitrite Test strip Ql (U)Ord ered By: Uday Orosco on 09-28-2023 Nitrite Ql (U) Negative Negative [facility] No Panel InformationOrdered By: Uday Orosco on 09-28-2023 Estimated Creatinine Clearance Calc 46.28 ml/min [facility] Estimated GFR (MDRD) Amer 63 mL/min >60 [facility] Comment on above: GFR Calc Estimated GFR (MDRD) Non-Af Amer 52 mL/min >60 [facility] Comment on above: Non- GFR Calc Troponin I High Sensitivity 7 pg/mL 3.0-54.0 [facility] Comment on above: Please Note: New Nasrin t Units and Gender Specific Reference Ranges. For more information see Policy Stat Procedure [place] High Sensitivity Troponin (TNIH) and attachments. No Panel InformationOrdered By: Tony Mejia on 09-28-2023 Thyroid Stimulating Hormone (TSH) 2.94 uIU/mL 0.358-3.74 [facility] Platelets bldOrdered By: Chad Orosco on 09-28-2023 Platelets (Bld) [#/Vol] 157 10*3/uL 150-450 [facility] Protein Test strip Ql (U)Ord ered By: Uday Orosco on 09-28-2023 Protein Ql (U) Negative Negative [facility] Serum or plasma calcium loco urement (mass/volume)Ordered By: Uday Orosco on 09-28-2023 Calcium [Mass/Vol] 9.7 mg/dL 8.5-10.1 [facility] Serum or plasma creatinine m easurement (mass/volume)Ordered By: Uday Orosco on 09-28-2023 Creatinine [Mass/Vol] 1.10 mg/dL 0.55-1.02 [facility] Comment on above: The validity of the calculated GFR & GFRAA in patients over 70 years has not been determined. Clinical correlation is essential. Serum or plasma urea nitroge n measurement (mass/volume)Ordered By: Uday Orosco on 09-28-2023 Urea nitrogen [Mass/Vol] 27 mg/dL 7-18 [facility] Squamous epithelial cells de tection in urine sediment by light microscopyOrdered By: Uday Orosco on 09-28-2023 Epithelial cells.squamous LM Ql (Urine sed) 0 SEEN /hpf 5-10 [facility] Thin prep Papanicolaou smear with manual screeningOrdered By: Uday Orosco on 09-28-2023 Thin prep Papanicolaou smear with manual screening 6 5-15 [facility] Urine blood detectionOrdered By: Uday Orosco on 09-28-2023 RBC Ql (U) Negative Negative [facility] RBC Ql (U) 0 SEEN /hpf 0-5 [facility] Urine clarityOrdered By: Chad Orosco on 09-28-2023 Clarity (U) Clear Clear [facility] Urine color determinationOrd ered By: Uday Orosco on 09-28-2023 Color (U) Yellow Yellow [facility] Urine glucose detectionOrder ed By: Uday Orosco on 09-28-2023 Glucose Ql (U) 1000 mg/dl Normal [facility] Urine leukocyte esterase det ection by dipstickOrdered By: Uday Orosco on 09-28-2023 Leukocyte esterase Test strip Ql (U) 25 /ul Negative [facility] Urine pHOrdered By: Uday cai on 09-28-2023 pH (U) 8.0 [pH] 5.0 - 8.0 [facility] Urine sediment bacteria coun t by microscopy (number/high power field)Ordered By: Uday Orosco on 09-28-2023 Bacteria LM.HPF (Urine sed) [#/Area] 0 /[HPF] None Seen [facility] Urine specific gravity measu rementOrdered By: Uday Orosco on 09-28-2023 Specific gravity (U) [Rel density] 1.010 1.002-1.030 [facility] Urobilinogen Auto test strip Ql (U)Ordered By: Uday Orosco on 09-28-2023 Urobilinogen Ql (U) Normal mg/dl Normal [facility] .GFRon 09-07-2023 GFR 47 ml/min/1.73sqm Normal [facility] ([place]) Comment on above: Result [...] Performed By: #### Reginaldo SKELTON, CRE ####[address] [place], [place] [address] GFR Non- 39 ml/min/1.73sqm Normal [facility] ([place]) Comment on above: Result [...] mL/min/1.73 square meters Performed By: #### G , CRE ####[address] [place], [place] [address] CREon 09-07-2023 Creatinine [Mass/Vol] 1.35 mg/dL High 0.55-1.02 [facility] ([place]) Comment on above: Performed By: #### G FR, CRE ####[address] [place], [place] [address] CT ABD/PELVIS W/ IV CONTRAST ONLYon 09-07-2023 [...] 09/07/2023 10:17:27 AM Ordering Provider: ADRIENNE Bassett [facility] ([place]) LABORATORYOrdered By: SYSTEM SYSTEM on 09-07-2023 Creatinine [...] 09/01/2023 8:23:28 AM Ordering Provider: ADRIENNE Bassett [facility]) ANCAon 07-19-2023 C-ANCA 1.1 Normal 0.0-20.0 [facility]) Comment on above: Result Comment: NEW REFERENCE RANGES FOR ANCA BY EIA: NEGATIVE <= 20 UNITS WEAK POSITIVE 21 - 30 UNITS MOD. TO STRONG POSITIVE > 30 UNITS A positive result indicates the presence of DE-3 antibodies and suggests the possibility of certain autoimmune vasculitides such as Naida?s granulomatosis. A negative result indicates no DE-3 antibody or levels below the negative cut-off of the assay. These results were obtained with the [employer] QUANTA Lite DE-3 IgG EDNA. DE-3 values obtained with different manufacturers? assay methods may not be used interchangeably. The magnitude of the reported IgG level cannot be correlated to an endpoint titer. Results of this assay should be used in conjunction with clinical findings. Performed By: #### L IPID, FERR, GFR, ANEU, CBC, TSH, CMP, ADIFF, A1C, VIDH #### [address] [address] Cytoplasmic Neutro. Ab. See Below Normal [facility]) Comment on above: Performed By: #### L IPID, FERR, GFR, ANEU, CBC, TSH, CMP, ADIFF, A1C, VIDH #### [address] [address] P-ANCA 10.8 Normal 0.0-20.0 [facility]) Comment on above: Result Comment: REFE RENCE [...] assay. These results were obtained with the Planitax QUANTA Lite MPO IgG EDNA. MPO values obtained with different manufacturers? assay methods may not be used interchangeably. The magnitude of the reported IgG level cannot be correlated to an endpoint titer. Results of this assay should be used in conjunction with clinical findings. Performed By: #### L IPID, FERR, GFR, ANEU, CBC, TSH, CMP, ADIFF, A1C, VIDH #### [address] [address] RFon 07-15-2023 Rheumatoid Factor <6.0 Normal <=5.9 [facility] ([place]) Comment on above: Result Comment: RF I [...] tests. These results were obtained with the [employer] QUANTA Lite RF IgM EDNA. RF IgM values obtained with different manufacturers' assay methods may not be used interchangeably. The magnitude of the reported IgM levels cannot be correlated to an endpoint titer. Performed By: #### C RE, GFR #### [address] [address] ANAon 07-14-2023 Nuclear Ab IF (S) [Titer] 40 {titer} Normal Neg 40 [facility] ([place]) Comment on above: Result Comment: AZALEA Screen and Titer methodology is an immunofluorescent technique utilizing Hep2 Substrate. Performed By: #### C RE, GFR #### [address] [address] .Auto Diffon 07-13-2023 Basophil, Absolute 0.0 10 3/mcL Normal 0.0-0.2 [facility] ([place]) Comment on above: Performed By: #### C RE, GFR #### [address] [address] Basophils/100 WBC (Bld) 0.3 % Normal 0.0-2.5 [facility] ([place]) Comment on above: Performed By: #### C RE, GFR #### [address] [address] Eosinophil, Absolute 0.1 10 3/mcL Normal 0.0-0.4 [facility] ([place]) Comment on above: Performed By: #### C RE, GFR #### [address] [address] Eosinophils/100 WBC (Bld) 1.1 % Normal 0.0-7.0 [facility] ([place]) Comment on above: Performed By: #### C RE, GFR #### [address] [address] Lymphocyte, Absolute 2.2 10 3/mcL Normal 0.8-3.9 [facility] ([place]) Comment on above: Performed By: #### C RE, GFR #### [address] [address] Lymphocytes/100 WBC (Bld) 28.8 % Normal 10.0-50.0 [facility] ([place]) Comment on above: Performed By: #### C RE, GFR #### [address] [address] Monocyte, Absolute 0.5 10 3/mcL Normal 0.2-1.0 [facility] ([place]) Comment on above: Performed By: #### C RE, GFR #### [address] [address] Monocytes/100 WBC (Bld) 7.0 % Normal 1.7-13.0 [facility] ([place]) Comment on above: Performed By: #### C RE, GFR #### [address] [address] Neutrophils/100 WBC (Bld) 62.8 % Normal 37.0-80.0 [facility] ([place]) Comment on above: Performed By: #### C RE, GFR #### [address] [address] .GFRon 07-13-2023 GFR Non- 37 ml/min/1.73sqm Normal [facility] ([place]) Comment on above: Result Comment: GFR Population [...] Performed By: #### C RE, GFR #### [address] [address] GFR 45 ml/min/1.73sqm Normal [facility] ([place]) Comment on above: Result Comment: GFR Population [...] Performed By: #### C RE, GFR #### [address] [address] .NEUABSon 07-13-2023 Neutrophil, Absolute 4.8 10 3/mcL Normal 2.9-6.2 [facility] ([place]) Comment on above: Performed By: #### C RE, GFR #### [address] [address] B12on 07-13-2023 Cobalamin (Vitamin B12) [Mass/Vol] 1078 pg/mL High 211-911 [facility] ([place]) Comment on above: Performed By: #### C RE, GFR #### [address] [address] CBCon 07-13-2023 Erythrocyte distribution width (RBC) [Ratio] 14.5 % Normal 11.5-14.5 [facility] ([place]) Comment on above: Performed By: #### C RE, GFR #### [address] [address] Hematocrit (Bld) [Volume fraction] 37.6 % Normal 37.0-47.0 [facility] ([place]) Comment on above: Performed By: #### C RE, GFR #### [address] [address] Hgb 12.5 G/dL Normal 12.0-16.0 [facility] ([place]) Comment on above: Performed By: #### C RE, GFR #### [address] [address] MCH (RBC) [Entitic mass] 30.0 pg Normal 27.0-31.2 [facility] ([place]) Comment on above: Performed By: #### C RE, GFR #### [address] [address] MCHC 33.2 G/dL Normal 33.0-37.0 [facility] ([place]) Comment on above: Performed By: #### C RE, GFR #### [address] [address] MCV (RBC) [Entitic vol] 90.4 fL Normal 80.0-94.0 [facility] ([place]) Comment on above: Performed By: #### C RE, GFR #### [address] [address] Platelet 181 10 3/mcL Normal 130-400 [facility] ([place]) Comment on above: Performed By: #### C RE, GFR #### [address] [address] Platelet mean volume (Bld) [Entitic vol] 8.9 fL Normal 7.4-10.4 [facility] ([place]) Comment on above: Performed By: #### C RE, GFR #### [address] [address] RBC 4.16 10 6/mcL Low 4.20-5.40 [facility] ([place]) Comment on above: Performed By: #### C RE, GFR #### [address] [address] WBC 7.7 10 3/mcL Normal 4.6-10.8 [facility] ([place]) Comment on above: Performed By: #### C RE, GFR #### [address] [address] CKon 07-13-2023 CK [Catalytic activity/Vol] 36 U/L Normal 26-192 [facility] ([place]) Comment on above: Performed By: #### C RE, GFR #### [address] [address] CMPon 07-13-2023 Albumin Level 3.7 G/dL Normal 3.4-4.8 [facility] ([place]) Comment on above: Performed By: #### C RE, GFR #### [address] [address] Albumin/Globulin [Mass ratio] 1.0 {ratio} Low 1.1-2.5 [facility] ([place]) Comment on above: Performed By: #### C RE, GFR #### [address] [address] ALP [Catalytic activity/Vol] 76 U/L Normal 40-135 [facility] ([place]) Comment on above: Performed By: #### C RE, GFR #### [address] [address] ALT [Catalytic activity/Vol] 17 U/L Normal 14-59 [facility] ([place]) Comment on above: Performed By: #### C RE, GFR #### [address] [address] AST [Catalytic activity/Vol] 15 U/L Normal 10-40 [facility] ([place]) Comment on above: Performed By: #### C RE, GFR #### [address] [address] Bili Total 0.3 mg/dL Normal 0.2-1.0 [facility] ([place]) Comment on above: Result Comment: Use of this assay is not recommended for patients undergoing treatment with eltrombopag due to the potential for falsely elevated results. Performed By: #### C RE, GFR #### [address] [address] BUN/Creatinine Ratio 20 ratio Normal 7-27 [facility] ([place]) Comment on above: Performed By: #### C RE, GFR #### [address] [address] Calcium [Mass/Vol] 8.9 mg/dL Normal 8.4-10.2 [facility] ([place]) Comment on above: Performed By: #### C RE, GFR #### [address] [address] Chloride [Moles/Vol] 104 mmol/L Normal 98-107 [facility] ([place]) Comment on above: Performed By: #### C RE, GFR #### [address] [address] CO2 [Moles/Vol] 30 mmol/L Normal 23-31 [facility] ([place]) Comment on above: Performed By: #### C RE, GFR #### [address] [address] Creatinine [Mass/Vol] 1.40 mg/dL High 0.55-1.02 [facility] ([place]) Comment on above: Performed By: #### C RE, GFR #### [address] [address] Electrolyte Balance 11.0 mEq/L Normal 4.0-15.0 [facility] ([place]) Comment on above: Performed By: #### C RE, GFR #### [address] [address] Globulin 3.6 G/dL Normal [facility] ([place]) Comment on above: Performed By: #### C RE, GFR #### [address] [address] Glucose [Mass/Vol] 205 mg/dL High 83-110 [facility] ([place]) Comment on above: Performed By: #### C RE, GFR #### [address] [address] Potassium [Moles/Vol] 4.6 mmol/L Normal 3.5-5.1 [facility] ([place]) Comment on above: Performed By: #### C RE, GFR #### [address] [address] Sodium [Moles/Vol] 145 mmol/L Normal 136-145 [facility] ([place]) Comment on above: Performed By: #### C RE, GFR #### [address] [address] Total Protein 7.3 G/dL Normal 6.4-8.2 [facility] ([place]) Comment on above: Performed By: #### C RE, GFR #### [address] [address] Urea nitrogen [Mass/Vol] 28 mg/dL High 7-18 [facility] ([place]) Comment on above: Performed By: #### C RE, GFR #### [address] [address] CRPon 07-13-2023 C-Reactive Protein 2.1 mg/dL High 0.0-0.3 [facility] ([place]) Comment on above: Performed By: #### C RE, GFR #### [address] [address] ESRon 07-13-2023 Erythrocyte Sed Rate 27 mm/hr Normal 0-30 [facility] ([place]) Comment on above: Performed By: #### C RE, GFR #### [address] [address] FOLon 07-13-2023 Folate >48.00 High 5.38-24.00 [facility] ([place]) Comment on above: Performed By: #### C RE, GFR #### [address] [address] FT4on 07-13-2023 Free T4 [Mass/Vol] 0.97 ng/dL Normal 0.76-1.46 [facility] ([place]) Comment on above: Performed By: #### C RE, GFR #### [address] [address] LIPIDon 07-13-2023 Cholesterol [Mass/Vol] 115 mg/dL Normal 0-200 [facility] ([place]) Comment on above: Result Comment: Chol esterol Reference Interval: Less than 200 Desirable 200-239 Borderline high risk 240 and above High risk Performed By: #### C RE, GFR #### [address] [address] Cholesterol in HDL [Mass/Vol] 42 mg/dL Normal 40-60 [facility] ([place]) Comment on above: Performed By: #### C RE, GFR #### [address] [address] Cholesterol in LDL [Mass/Vol] 49 mg/dL Normal 0-130 [facility] ([place]) Comment on above: Performed By: #### C RE, GFR #### [address] [address] Triglyceride [Mass/Vol] 120 mg/dL Normal 0-150 [facility] ([place]) Comment on above: Result Comment: Trig lyceride Reference Interval: Less than 150 Normal 150-199 Borderline high risk 200-499 High risk 500 or higher Very high risk Performed By: #### C RE, GFR #### [address] [address] PTHon 07-13-2023 PTH, Intact 60.7 pg/mL Normal 18.5-88.0 [facility] ([place]) Comment on above: Performed By: #### C RE, GFR #### [address] [address] TSHon 07-13-2023 TSH Qn 1.67 m[IU]/L Normal 0.36-3.74 [facility] ([place]) Comment on above: Performed By: #### C RE, GFR #### [address] [place], [place] [address] VIDHon 07-13-2023 Vit. D 25-Hydroxy 54.1 ng/mL Normal [facility] ([place]) Comment on above: Result Comment: Inte rpretive Values Based on Total 25(OH) Vitamin D: Deficient <20 ng/mL Insufficient 20 - <30 ng/mL Sufficient 30-100 ng/mL Performed By: #### C RE, GFR #### Katie [address] [address] .GFRon 06-09-2023 GFR 44 ml/min/1.73sqm Normal [facility] ([place]) Comment on above: Result Comment: GFR Population [...] #### G FR, PBNP, BMP ####[address] [place], [place] [address] GFR Non- 37 ml/min/1.73sqm Normal [facility] ([place]) Comment on above: Result Comment: GFR Population [...] By: #### AUGUSTO OLSEN, BMP ####[address] [place], [place] [address] BMPon 06-09-2023 BUN/Creatinine Ratio 23 ratio Normal 7-27 [facility] ([place]) Comment on above: Performed By: #### AUGUSTO OLSEN, BMP ####[address] [place], [place] [address] Calcium [Mass/Vol] 9.3 mg/dL Normal 8.4-10.2 [facility] ([place]) Comment on above: Performed By: #### AUGUSTO OLSEN, BMP ####[address] [place], [place] [address] Chloride [Moles/Vol] 102 mmol/L Normal 98-107 [facility] ([place]) Comment on above: Performed By: #### AUGUSTO OLSEN, BMP ####[address] [place], [place] [address] CO2 [Moles/Vol] 28 mmol/L Normal 23-31 [facility] ([place]) Comment on above: Performed By: #### AUGUSTO OLSEN, BMP ####[address] [place], [place] [address] Creatinine [Mass/Vol] 1.42 mg/dL High 0.55-1.02 [facility] ([place]) Comment on above: Performed By: #### AUGUSTO OLSEN, BMP ####[address] [place], [place] [address] Electrolyte Balance 10.0 mEq/L Normal 4.0-15.0 [facility] ([place]) Comment on above: Performed By: #### Reginaldo SKELTON PBAUGUST, BMP ####[address] [place], [place] [address] Glucose [Mass/Vol] 239 mg/dL High 83-110 [facility] ([place]) Comment on above: Performed By: #### G AUGUSTO SKELTON BMP ####[address] [place], [place] [address] Potassium [Moles/Vol] 4.3 mmol/L Normal 3.5-5.1 [facility] ([place]) Comment on above: Performed By: #### AUGUSTO OLSEN BMP ####[address] [place], [place] [address] Sodium [Moles/Vol] 140 mmol/L Normal 136-145 [facility] ([place]) Comment on above: Performed By: #### AUGUSTO OLSEN BMP ####[address] [place], [place] [address] Urea nitrogen [Mass/Vol] 33 mg/dL High 7-18 [facility] ([place]) Comment on above: Performed By: #### AUGUSTO OLSEN BMP ####[address] [place], [place] [address] LABORATORYOrdered By: SYSTEM SYSTEM on 06-09-2023 Calcium [...] B (Bld) [Mass/Vol] 588 pg/mL High 0-125 [facility] ([place]) Comment on above: Result Comment: NT-p roBNP results of less than 300 pg/mL effectively rules out acute congestive heart failure with 99% negative predictive value. Performed By: #### G , AUGUSTO, BMP ####[address] [place], [place] [address] LABORATORYOrdered By: [employer] SYSTEM on 12-10-2022 Calcium [Mass/Vol] 8.7 mg/dL [...] AO Chemistry S GFR Non- 63 ml/min/1.73sqm Inval id Interpretation Code AO Chemistry S Glucose [Mass/Vol] [...] (U) [Mass/Vol] >=1000 mg/dL Invalid Interpretation Code Negativemg/ dL AO Auto Urine SS Hemoglobin Auto test strip (U) [Mass/Vol] Trace *ABN* (11/30/22 8:43 AM) Invalid Interpretation Code Negative AO Auto Urine SS Ketones Ql (U) Negative Invalid Interpretation Code Negativemg/ dL AO Auto Urine SS UA Leuk Est Trace *ABN* (11/30/22 8:43 AM) Invalid Interpretation Code Negative AO Auto Urine SS UA Nitrite Negative (11/30/22 8:43 AM) Invalid Interpretation Code Negative AO Auto Urine SS UA pH 5.5 (11/30/22 8:43 AM) Invalid Interpretation Code 5.0 - 8.0 AO Auto Urine SS UA Protein Negative Invalid Interpretation Code Negativemg/ dL AO Auto Urine SS UA RBC 0-5 /HPF Invalid Interpretation Code None Seen/HPF AO Auto Urine SS UA Spec Grav 1.015 (11/30/22 8:43 AM) Invalid Interpretation Code 1.015-1.025 AO Auto Urine SS UA Specimen Type Clean Catch (11/30/22 8:43 AM) Invalid Interpretation Code AO Auto Urine SS UA Squam Epithelial 0-5 /HPF Invalid Interpretation Code None Seen/HPF AO Auto Urine SS UA Urobilinogen 0.2 E.U./dL Invalid Interpretation Code 0.2-1.0E.U. /dL AO Auto Urine SS WBC LM.HPF (Urine sed) [#/Area] 0-5 /HPF Invalid Interpretation Code None Seen/HPF AO Auto Urine SS No Panel Informationon 11-30 Culture Urine 10,000 - 50,000 cfu/ ml Mixed growth consistent with normal urogenital demarco. [facility] Work Phone: LABORATORYOrdered By: SYSTEM SYSTEM [...] AO Chemistry S GFR Non- 42 ml/min/1.73sqm Inval id Interpretation Code AO Chemistry S Globulin 3.5 [...] (U) [Mass/Vol] >=1000 mg/dL Invalid Interpretation Code Negativemg/ dL AH Auto Urine SS Hemoglobin Auto test strip (U) [Mass/Vol] Negative (08/19/22 9:25 PM) Invalid Interpretation Code Neg-Trace AH Auto Urine SS Ketones Ql (U) Negative Invalid Interpretation Code Neg-Tracemg /dL AH Auto Urine SS UA Leuk Est Trace *NA* (08/19/22 9:25 PM) Invalid Interpretation Code Negative AH Auto Urine SS UA Nitrite Negative (08/19/22 9:25 PM) Invalid Interpretation Code Negative AH Auto Urine SS UA pH 5.5 (08/19/22 9:25 PM) Invalid Interpretation Code 5.0 - 8.0 AH Auto Urine SS UA Protein Negative Invalid Interpretation Code Negativemg/ dL AH Auto Urine SS UA Spec Grav >=1.030 *ABN* (08/19/22 9:25 PM) Invalid Interpretation Code 1.006-1.029 AH Auto Urine SS UA Specimen Type Clean Catch (08/19/22 9:25 PM) Invalid Interpretation Code AH Auto Urine SS UA Urobilinogen 0.2 E.U./dL Invalid Interpretation Code 0.2-1.0E.U. /dL AH Auto Urine SS LABORATORYOrdered By: Pamela Crystal on 08-19-2022 Bacteria LM.HPF (Urine sed) [#/Area] 2 /[HPF] Invalid Interpretation Code Negative/HP F AH Auto Urine SS UA RBC Negative [...] TO INTENSIVE CARE UNIT FOR CONDITION OF INTEREST:FIND:PT:^PATIEN T:ORD: No (08/19/22 4:45 PM) Invalid Interpretation Code AH Auto Viro/Sero SS B. parapertussis [id number] DNA ENRIQUE+non-probe Ql (Nph) Not Detected *NA* [...] Auto Viro/Sero SS EMPLOYED IN A HEALTHCARE SETTING:FIND:PT:^PATIENT :ORD: No (08/19/22 4:45 PM) Invalid Interpretation Code AH Auto Viro/Sero SS FIRST TEST FOR CONDITION OF INTEREST:FIND:PT:^PATIEN T:ORD: No (08/19/22 4:45 PM) Invalid Interpretation Code AH Auto Viro/Sero SS FLUAV RNA ENRIQUE+non-probe Ql (Nph) Not Detected *NA* (08/19/22 4:45 PM) Invalid Interpretation Code Not Detected AH Auto Viro/Sero SS FLUBV RNA ENRIQUE+non-probe Ql (Nph) Not Detected *NA* (08/19/22 4:45 PM) Invalid Interpretation Code Not Detected AH Auto Viro/Sero SS HAS SYMPTOMS RELATED TO CONDITION OF INTEREST:FIND:PT:^PATIEN T:ORD: No (08/19/22 4:45 PM) Invalid Interpretation Code AH Auto Viro/Sero SS hMPV RNA ENRIQUE+non-probe Ql (Nph) Not Detected *NA* (08/19/22 4:45 PM) Invalid Interpretation Code Not Detected Auto Viro/Sero SS Illness or injury onset date and time [id number] Invalid Interpretation Code AH Auto Viro/Sero SS [...] Viro/Sero SS RESIDES IN A CONGREGATE CARE SETTING:FIND:PT:^PATIENT :ORD: No (08/19/22 4:45 PM) Invalid Interpretation Code [...] - 1.20 mg/dL ADM SS Calcium [Mass/Vol] 9.6 mg/dL Invalid Interpretation Code 8.7 - 10.4 mg/dL ADM SS Chloride [Moles/Vol] 104 mmol/L Invalid Interpretation Code 98 - 110 mEq/L ADM SS CO2 [Moles/Vol] 30 mmol/L Invalid Interpretation Code 22 - 32 mEq/L ADM SS Creatinine [Mass/Vol] 1.15 mg/dL Invalid Interpretation Code 0.50 - 1.20 mg/dL ADM SS Electrolyte Balance 5.0 mEq/L Invalid Interpretation Code 4.0 - 15.0 mEq/L ADM SS Eosinophils (Bld) [#/Vol] 0.0 103/mcL Invalid Interpretation Code 0.0 - 0.7 10^3/mcL Workflow SS Eosinophils/100 WBC (Bld) 0.1 % Invalid Interpretation Code 0.0 - 6.0 % Workflow SS Erythrocyte distribution width (RBC) [Ratio] 13.5 % Invalid Interpretation Code 11.5 - 15.5 % Workflow SS GFR/1.73 sq M.predicted among blacks MDRD (S/P/Bld) [Vol rate/Area] 57 ml/min/1.73sqm Invalid Interpretation Code ADM SS GFR/1.73 [...] 46.0 % Workflow SS Hemoglobin (Bld) [Mass/Vol] 12.3 G/dL Invalid Interpretation Code 12.0 - 16.0 G/dL Workflow SS Lymphocytes (Bld) [#/Vol] 3.7 103/mcL Invalid Interpretation Code 0.9 - 4.3 10^3/mcL Workflow SS Lymphocytes/100 WBC (Bld) 22.4 % Invalid Interpretation Code 20.0 - 40.0 % Workflow SS MCH (RBC) [Entitic mass] 30.7 [...] G/dL AH ADM SS RBC (Bld) [#/Vol] 4.00 106/mcL Invalid Interpretation Code 4.10 - 5.30 10^6/mcL AH Workflow SS Sodium [Moles/Vol] 139 mmol/L Invalid Interpretation Code 136 - 145 mEq/L ADM SS Troponin I.cardiac DL <= 0.01 ng/mL [Mass/Vol] 8.52 ng/L Invalid Interpretation Code 0.00 - 34.00 ng/L ADM SS Urea nitrogen [Mass/Vol] 19.0 mg/dL [...] mmol/L AH Auto Chem SS LABORATORYOrdered By: Yoly Cortes on 08-19-2022 Natriuretic peptide.B prohormone N-Terminal [Mass/Vol] 924 pg/mL Invalid Interpretation Code 0 - 900 pg/mL AH Auto Chem SS No Panel Informationon 08-19 Culture Urine Culture results pending. [facility] Work Phone: Microscopic examination of blood, culture Culture has been received in lab and is no growth to date. Routine cultures are held for 5 days. [facility] Work Phone: LABORATORYOrdered By: Ju Griffin on [...] AO Chemistry S GFR Non- 40 ml/min/1.73sqm Inval id Interpretation Code AO Chemistry S LABORATORYOrdered By: Cheli Kuo on 06-01-2022 HbA1c (Bld) [Mass fraction] 7.3 % Invalid Interpretation Code 4.3 - 6.4 % AO ADM SS LABORATORYOrdered By: Rob Tam on 05-22-2022 Adenovirus DNA ENRIQUE+non-probe Ql (Nph) Not Detected *NA* (05/22/22 2:10 PM) Invalid Interpretation Code Not Detected AH Auto Viro/Sero SS ADMITTED TO INTENSIVE CARE UNIT FOR CONDITION OF INTEREST:FIND:PT:^PATIJERRY T:ORD: No (05/22/22 2:10 PM) Invalid Interpretation Code [...] Auto Viro/Sero SS EMPLOYED IN A HEALTHCARE SETTING:FIND:PT:^PATIENT :ORD: No (05/22/22 2:10 PM) Invalid Interpretation Code AH Auto Viro/Sero SS FIRST TEST FOR CONDITION OF INTEREST:FIND:PT:^PATIEN T:ORD: No (05/22/22 2:10 PM) Invalid Interpretation Code AH Auto Viro/Sero SS FLUAV RNA ENRIQUE+non-probe Ql (Nph) Not Detected *NA* (05/22/22 2:10 PM) Invalid Interpretation Code Not Detected AH Auto Viro/Sero SS FLUBV RNA ENRIQUE+non-probe Ql (Nph) Not Detected *NA* (05/22/22 2:10 PM) Invalid Interpretation Code Not Detected Auto Viro/Sero SS HAS SYMPTOMS RELATED TO CONDITION OF INTEREST:FIND:PT:^PATIEN T:ORD: No (05/22/22 2:10 PM) Invalid Interpretation Code [...] Viro/Sero SS RESIDES IN A CONGREGATE CARE SETTING:FIND:PT:^PATIENT :ORD: No (05/22/22 2:10 PM) Invalid Interpretation Code [...] strip (U) [Mass/Vol] Negative Invalid Interpretation Code Negativemg/ dL AH Auto Urine SS Hemoglobin Auto test strip (U) [Mass/Vol] Negative (05/22/22 2:10 PM) Invalid Interpretation Code Neg-Trace AH Auto Urine SS Ketones Ql (U) Negative Invalid Interpretation Code Neg-Tracemg /dL AH Auto Urine SS UA Leuk Est Trace *NA* (05/22/22 2:10 PM) Invalid Interpretation Code Negative AH Auto Urine SS UA Nitrite Negative (05/22/22 2:10 PM) Invalid Interpretation Code Negative AH Auto Urine SS UA pH 7.5 (05/22/22 2:10 PM) Invalid Interpretation Code 5.0 - 8.0 AH Auto Urine SS UA Protein Negative Invalid Interpretation Code Negativemg/ dL AH Auto Urine SS UA Spec Grav 1.010 (05/22/22 2:10 PM) Invalid Interpretation Code 1.006-1.029 AH Auto Urine SS UA Specimen Type Clean Catch (05/22/22 2:10 PM) Invalid Interpretation Code AH Auto Urine SS UA Urobilinogen 0.2 E.U./dL Invalid Interpretation Code 0.2-1.0E.U. /dL AH Auto Urine SS LABORATORYOrdered By: SYSTEM [...] Code 8 - 34 U/L ADM SS Basophils (Bld) [#/Vol] 0.1 103/mcL [...] 10^3/mcL AH Workflow SS Eosinophils/100 WBC (Bld) 0.8 % [...] 3.8 G/dL AH ADM SS Glucose [Mass/Vol] 175 mg/dL Invalid Interpretation Code 82 - 115 mg/dL AH ADM SS Hematocrit (Bld) [Volume fraction] 32.4 % Invalid Interpretation Code 34.0 - 46.0 % AH Workflow SS Hemoglobin (Bld) [Mass/Vol] 11.2 G/dL Invalid Interpretation Code 12.0 - 16.0 G/dL AH Workflow SS Lymphocytes (Bld) [#/Vol] 2.2 103/mcL [...] ng/L AH ADM SS Urea nitrogen [Mass/Vol] 20.0 mg/dL [...] Routine cultures are held for 5 days. [facility] Work Phone: LABORATORYOrdered By: Geoffrey Tellez on [...] 27 ratio AO ADM SS LABORATORYOrdered By: AgilOne on 05-01-2022 GFR 48 ml/min/1.73sqm Invalid Interpretation Code AO Chemistry S GFR Non- 39 ml/min/1.73sqm Inval id Interpretation Code AO Chemistry S Monocyte distribution width Auto (Bld) [Entitic vol] Not Performed 1 *NA* (05/01/22 10:09 AM) Invalid Interpretation Code 0.00 - 20.00 AO Hematology S Comment on above: Result Comment: MDW testing performed only on adult ER patients between the ages of 18-89 years. LABORATORYOrdered By: AgilOne on 03-24-2022 Cortisol [Mass/Vol] 25.0 ug/dL Invalid [...] AO Chemistry S GFR Non- 39 ml/min/1.73sqm Inval id Interpretation Code AO Chemistry S LABORATORYOrdered By: [...] AO Chemistry S GFR Non- 45 ml/min/1.73sqm Inval id Interpretation Code AO Chemistry S LABORATORYOrdered By: [...] AO Chemistry S GFR Non- 42 ml/min/1.73sqm Inval id Interpretation Code AO Chemistry S LABORATORYOrdered By: [...] AO Chemistry S GFR Non- 45 ml/min/1.73sqm Inval id Interpretation Code AO Chemistry S LABORATORYOrdered By: [...] AO Chemistry S GFR Non- 30 ml/min/1.73sqm Inval id Interpretation Code AO Chemistry S LABORATORYOrdered By: [...] AO Chemistry S GFR Non- 39 ml/min/1.73sqm Inval id Interpretation Code AO Chemistry S LABORATORYOrdered By: [...] AO Chemistry S GFR Non- 47 ml/min/1.73sqm Inval id Interpretation Code AO Chemistry S LABORATORYOrdered By: [...] AO Chemistry S GFR Non- 47 ml/min/1.73sqm Inval id Interpretation Code AO Chemistry S LABORATORYOrdered By: Pinedale Money on 12-25-2021 Blood Glucose Testing Reason Routine (12/25/21 10:58 AM) [facility] Work Phone: Glucose [Mass/Vol] 159 mg/dL Invalid Interpretation Code 82 - 115 mg/dL [facility] Work Phone: Blood Glucose Testing Reason Routine (12/25/21 6:53 AM) [facility] Work Phone: Glucose [Mass/Vol] 112 mg/dL Invalid Interpretation Code 82 - 115 mg/dL [facility] Work Phone: LABORATORYOrdered By: SYSTEM SYSTEM on 12-25-2021 Base excess Calc (BldMV) [...] Invalid Interpretation Code 3 - 149 mg/dL ADM SS LABORATORYOrdered By: Shanika Malave on 12-24-2021 Blood Glucose Testing Reason Routine (12/24/21 9:09 PM) [facility] Work Phone: Glucose [Mass/Vol] 151 mg/dL Invalid Interpretation Code 82 - 115 mg/dL [facility] Work Phone: LABORATORYOrdered By: SYSTEM [...] Invalid Interpretation Code 0.0 - 6.0 % Remisol SS Erythrocyte distribution width (RBC) [Ratio] 14.9 % Invalid Interpretation Code 11.5 - 15.5 % Remisol SS GFR/1.73 sq M.predicted among blacks [...] Invalid Interpretation Code 0.90 - 4.32 10^3/mcL Remisol SS Lymphocytes/100 WBC (Bld) 14.4 % Invalid Interpretation Code 20.0 - 40.0 % AH Remisol SS Magnesium [Mass/Vol] 1.7 mg/dL Invalid [...] Remisol SS Natriuretic peptide.B prohormone N-Terminal [Mass/Vol] 59719 pg/mL Invalid Interpretation Code 0 - 900 [...] strip (U) [Mass/Vol] Negative Invalid Interpretation Code Negativemg/ dL AH Auto Urine SS Hemoglobin Auto test strip (U) [Mass/Vol] Negative (12/24/21 2:54 AM) Invalid Interpretation Code Neg-Trace AH Auto Urine SS Ketones Ql (U) Negative Invalid Interpretation Code Neg-Tracemg /dL AH Auto Urine SS UA Leuk Est Negative (12/24/21 2:54 AM) Invalid Interpretation Code Negative AH Auto Urine SS UA Nitrite Negative (12/24/21 2:54 AM) Invalid Interpretation Code Negative AH Auto Urine SS UA pH 6.0 (12/24/21 2:54 AM) Invalid Interpretation Code 5.0 - 8.0 AH Auto Urine SS UA Protein Negative Invalid Interpretation Code Negativemg/ dL AH Auto Urine SS UA Spec Grav >=1.030 *ABN* (12/24/21 2:54 AM) Invalid Interpretation Code 1.006-1.029 Auto Urine SS UA Specimen Type Clean Catch (12/24/21 2:54 AM) Invalid Interpretation Code Auto Urine SS UA Urobilinogen 0.2 E.U./dL Invalid Interpretation Code 0.2-1.0E.U. /dL Auto Urine SS LABORATORYOrdered By: Ellie Alfonso on 12-23-2021 ADMITTED TO INTENSIVE CARE UNIT FOR CONDITION OF INTEREST:FIND:PT:^KAROL T:ORD: No (12/23/21 9:48 PM) Invalid Interpretation Code AO Auto Urine SS EMPLOYED IN A HEALTHCARE SETTING:FIND:PT:^PATIENT :ORD: No (12/23/21 9:48 PM) Invalid Interpretation Code AO Auto Urine SS Fibrin D-dimer DDU (PPP) [Mass/Vol] 583 ng/mL D-DU Invalid Interpretation Code 0 - 230 ng/mL D-DU AO Coag SS FIRST TEST FOR CONDITION OF INTEREST:FIND:PT:^KAROL T:ORD: No (12/23/21 9:48 PM) Invalid Interpretation Code AO Auto Urine SS HAS SYMPTOMS RELATED TO CONDITION OF INTEREST:FIND:PT:^KAROL T:ORD: Yes (12/23/21 9:48 PM) Invalid Interpretation Code AO Auto Urine SS Illness or injury onset date and time [id number] Invalid Interpretation Code AO Auto Urine SS Patient was hospitalized because of this condition Yes (12/23/21 9:48 PM) Invalid Interpretation Code AO Auto Urine SS status Not (12/23/21 9:48 PM) Invalid Interpretation Code AO Auto Urine SS RESIDES IN A CONGREGATE CARE SETTING:FIND:PT:^PATIENT :ORD: No (12/23/21 9:48 PM) Invalid Interpretation Code [...] AO Chemistry S GFR Non- 49 ml/min/1.73sqm Inval id Interpretation Code AO Chemistry S LABORATORYOrdered By: [...] AO Chemistry S GFR Non- 52 ml/min/1.73sqm Inval id Interpretation Code AO Chemistry S LABORATORYOrdered By: [...] AO Chemistry S GFR Non- 55 ml/min/1.73sqm Inval id Interpretation Code AO Chemistry S LABORATORYOrdered By: [...] AO Chemistry S GFR Non- 56 ml/min/1.73sqm Inval id Interpretation Code AO Chemistry S LABORATORYOrdered By: Ivania Lott on 12-05-2021 Glucose [Mass/Vol] 169 mg/dL Invalid Interpretation Code 82 - 115 mg/dL [facility] Work Phone: Blood Glucose Testing Reason Routine (12/05/21 8:07 AM) [facility] Work Phone: Glucose [Mass/Vol] 160 mg/dL Invalid Interpretation Code 82 - 115 mg/dL [facility] Work Phone: LABORATORYOrdered By: SYSTEM [...] Glucose Testing Reason Routine (12/04/21 9:52 PM) [facility] Work Phone: Glucose [Mass/Vol] 112 mg/dL Invalid Interpretation Code 82 - 115 mg/dL [facility] Work Phone: LABORATORYOrdered By: Sanford Stiles on 12-04-2021 Blood Glucose Testing Reason Routine (12/04/21 4:08 PM) [facility] Work Phone: LABORATORYOrdered By: [employer]One on 12-04-2021 Anisocytosis Ql (Bld) Slight *NA* [...] Code AH Auto Coag SS LABORATORYOrdered By: [employer] SYSTEM on 12-02-2021 Basophils (Bld) [#/Vol] 0.00 [...] [Mass fraction] 18 1 Invalid Interpretation Code AH ADM SS 25-hydroxyvitamin D3 [Mass/Vol] 38.4 ng/mL Invalid Interpretation Code ADM SS Iron [Mass/Vol] 47 ug/dL Invalid Interpretation Code 50 - 170 mcg/dL ADM SS LABORATORYOrdered By: Linda Oliveros on 11-30-2021 Appearance (U) Cloudy *ABN* (11/30/21 12:52 PM) Invalid Interpretation Code Clear AH Auto Urine SS Bacteria LM.HPF (Urine sed) [#/Area] Trace /HPF Invalid Interpretation Code Negative/HP F AH Auto Urine SS Bilirubin Ql (U) Negative (11/30/21 12:52 PM) Invalid Interpretation Code Neg-Trace AH Auto Urine SS Color (U) Yellow (11/30/21 12:52 PM) Invalid Interpretation Code AH Auto Urine SS Glucose Test strip (U) [Mass/Vol] Negative Invalid Interpretation Code Negativemg/ dL AH Auto Urine SS Hemoglobin Auto test strip (U) [Mass/Vol] Large *ABN* (11/30/21 12:52 PM) Invalid Interpretation Code Neg-Trace AH Auto Urine SS Ketones Ql (U) Negative Invalid Interpretation Code Neg-Tracemg /dL AH Auto Urine SS UA Leuk Est Negative (11/30/21 12:52 PM) Invalid Interpretation Code Negative AH Auto Urine SS UA Nitrite Negative (11/30/21 12:52 PM) Invalid Interpretation Code Negative AH Auto Urine SS UA pH 8.5 *ABN* (11/30/21 12:52 PM) Invalid Interpretation Code 5.0 - 8.0 AH Auto Urine SS UA Protein Trace mg/dL Invalid Interpretation Code Negativemg/ dL Auto Urine SS UA RBC LOADED /HPF Invalid Interpretation Code 0-2/HPF AH Auto Urine SS UA Spec Grav 1.015 (11/30/21 12:52 PM) Invalid Interpretation Code 1.006-1.029 AH Auto Urine SS UA Specimen Type Catheter (11/30/21 12:52 PM) Invalid Interpretation Code AH Auto Urine SS UA Squam Epithelial Rare /HPF Invalid Interpretation Code 0-20/HPF AH Auto Urine SS UA Urobilinogen 0.2 E.U./dL Invalid Interpretation Code 0.2-1.0E.U. /dL AH Auto Urine SS WBC LM.HPF (Urine sed) [#/Area] Rare /HPF Invalid Interpretation Code 0-5/HPF AH Auto Urine SS No Panel Informationon 11-30 Microscopic examination of blood, culture Blood Culture: No Growth at 5 days. [facility] Work Phone: LABORATORYOrdered By: SYSTEM [...] TO INTENSIVE CARE UNIT FOR CONDITION OF INTEREST:FIND:PT:^PATIEN T:ORD: No (11/27/21 12:42 PM) Invalid Interpretation Code AH Auto Viro/Sero SS B. pertussis toxin promoter region ENRIQUE+non-probe Ql (Nph) Not Detected *NA* (11/27/21 12:42 PM) Invalid Interpretation Code Not Detected Auto Viro/Sero SS Bordetella Parapertussis Not Detected *NA* (11/27/21 12:42 PM) Invalid Interpretation Code Not Detected Auto Viro/Sero SS C. pneumoniae DNA ENRIQUE+non-probe Ql (Nph) Not Detected *NA* (11/27/21 12:42 PM) Invalid Interpretation Code Not Detected AH Auto Viro/Sero SS EMPLOYED IN A HEALTHCARE SETTING:FIND:PT:^PATIENT :ORD: No (11/27/21 12:42 PM) Invalid Interpretation Code AH Auto Viro/Sero SS FIRST TEST FOR CONDITION OF INTEREST:FIND:PT:^PATIEN T:ORD: No (11/27/21 12:42 PM) Invalid Interpretation Code Auto Viro/Sero SS FLUAV RNA ENRIQUE+non-probe Ql (Nph) Not Detected *NA* (11/27/21 12:42 PM) Invalid Interpretation Code Not Detected Auto Viro/Sero SS FLUBV RNA ENRIQUE+non-probe Ql (Nph) Not Detected *NA* (11/27/21 12:42 PM) Invalid Interpretation Code Not Detected Auto Viro/Sero SS HAS SYMPTOMS RELATED TO CONDITION OF INTEREST:FIND:PT:^PATIEN T:ORD: No (11/27/21 12:42 PM) Invalid Interpretation Code [...] Viro/Sero SS RESIDES IN A CONGREGATE CARE SETTING:FIND:PT:^PATIENT :ORD: No (11/27/21 12:42 PM) Invalid Interpretation Code [...] Blood Culture: No Growth at 5 days. [facility] Work Phone: Culture Urine No growth at 48 hours. [facility] Work Phone: LABORATORYOrdered By: Yanna navarrete on [...] - 7.460 Auto Chem SS LABORATORYOrdered By: Libertad Corral [...] Hg AH Auto Chem SS pH (Bld) 7.485 [pH] [...] 1.5 - 3.8 G/dL AH ADM SS Protein [Mass/Vol] 7.1 G/dL Invalid [...] [Relative time] 1.1 {INR} Invalid Interpretation Code AH Auto Coag SS PT Coag (PPP) [Time] 13.2 s Invalid Interpretation Code 9.0 - 14.8 seconds AH Auto Coag SS LABORATORYOrdered By: SYSTEM SYSTEM on 11-23-2021 Troponin I.cardiac DL <= 0.01 ng/mL [Mass/Vol] 359.91 ng/L Invalid Interpretation Code 0.00 - 34.00 ng/L ADM SS LABORATORYOrdered By: VIVIAN_Venkat FLEMING CONTRIBUTOR_SYSTEM on 11-22-2021 Coccidioides Ab, IgG 0.2 Invalid Interpretation Code [facility] Comment on above: Result Comment: Refe [...] Coccidioides Ab, IgM 0.1 Invalid Interpretation Code [facility] Comment on above: Result Comment: [...] represented in the EDNA tests. Performed By: [employer] [address] [place] [id number] Associate Director Career Services: Nicolette Bolton MD LABORATORYOrdered By: SYSTEM SYSTEM on 11-22-2021 Natriuretic peptide.B prohormone N-Terminal [Mass/Vol] [...] No (11/22/21 6:28 AM) Invalid Interpretation Code Auto Viro/Sero SS FLU A PCR Negative 4 (11/22/21 6:28 AM) Invalid Interpretation Code Negative AH Auto Viro/Sero SS Comment on above: Result Comment: [place] [id number] FLU B PCR Negative 5 (11/22/21 6:28 AM) Invalid Interpretation Code Negative AH Auto Viro/Sero SS Comment on above: Result Comment: [place] [id number] Hospitalized Yes (11/22/21 6:28 AM) Invalid Interpretation [...] Comment on above: Result Comment: Note s [id number] SARS-CoV-2 (COVID-19) RNA ENRIQUE+probe Ql (Unsp spec) Negative 3 (11/22/21 6:28 AM) Invalid Interpretation Code Negative AH Auto Viro/Sero SS Comment on above: Result Comment: [place] [id number] Symptomatic as Defined by CDC Yes (11/22/21 6:28 AM) Invalid Interpretation Code AH Auto Viro/Sero SS LABORATORYOrdered By: Kiran Pena on 11-22-2021 Appearance (U) Clear (11/22/21 5:28 AM) Invalid Interpretation Code Clear AH Auto Urine SS Bacteria LM.HPF (Urine sed) [#/Area] Trace /HPF Invalid Interpretation Code Negative/HP F AH Auto Urine SS Bilirubin Ql (U) Negative (11/22/21 5:28 AM) Invalid Interpretation Code Neg-Trace AH Auto Urine SS Color (U) Yellow (11/22/21 5:28 AM) Invalid Interpretation Code AH Auto Urine SS Glucose Test strip (U) [Mass/Vol] Negative Invalid Interpretation Code Negativemg/ dL AH Auto Urine SS Hemoglobin Auto test strip (U) [Mass/Vol] Small *ABN* (11/22/21 5:28 AM) Invalid Interpretation Code Neg-Trace AH Auto Urine SS Ketones Ql (U) Negative Invalid Interpretation Code Neg-Tracemg /dL AH Auto Urine SS UA Leuk Est Negative (11/22/21 5:28 AM) Invalid Interpretation Code Negative AH Auto Urine SS UA Nitrite Negative (11/22/21 5:28 AM) Invalid Interpretation Code Negative AH Auto Urine SS UA pH 5.5 (11/22/21 5:28 AM) Invalid Interpretation Code 5.0 - 8.0 AH Auto Urine SS UA Protein 30 mg/dL Invalid Interpretation Code Negativemg/ dL AH Auto Urine SS UA RBC 0-2 /HPF Invalid Interpretation Code 0-2/HPF AH Auto Urine SS UA Spec Grav >=1.030 *ABN* (11/22/21 5:28 AM) Invalid Interpretation Code 1.006-1.029 AH Auto Urine SS UA Specimen Type Catheter (11/22/21 5:28 AM) Invalid Interpretation Code Auto Urine SS UA Squam Epithelial Rare /HPF Invalid Interpretation Code 0-20/HPF Auto Urine SS UA Urobilinogen 1.0 E.U./dL Invalid Interpretation Code 0.2-1.0E.U. /dL Auto Urine SS WBC LM.HPF (Urine sed) [#/Area] 3-5 /HPF Invalid Interpretation Code 0-5/HPF Auto Urine SS LABORATORYOrdered By: Libertad Corral [...] respiratory demarco present. Sensitivity testing not indicated. [facility] Work Phone: Comment on above: Requests for Mycopla sma, Legionella, Fungi, Mycobacteria, Chlamydia, and Viruses require ordering of those individual tests. GS Rare Epithelial cell s Rare Polymorphonuclear cells No organisms seen. [facility] Work Phone: Comment on above: Requests for Mycopla sma, Legionella, Fungi, Mycobacteria, Chlamydia, and Viruses require ordering of those individual tests. Culture Urine No growth at 48 hours. [facility] Work Phone: Legionella Urine Ag Presumptive negative for L. pneumophila serogroup 1 antigen in urine, suggesting no recent or current infection. Legionnaire's disease cannot be ruled out since other serogroups and species may also cause disease. [facility] Work Phone: Streptococcus Pneumoniae Urine Antig Presumptive negative for pneumococcal pneumonia, suggesting no current or recent pneumococcal infection. Infection due to Strep pneumoniae cannot be ruled out since the antigen present in the sample may be below the detection limit of the test. [facility] Work Phone: Comment on above: This test has not be en evaluated on patients taking antibiotics for greater than 24 hours or on patients who have recently completed an antibiotic regimen. The accuracy of this test has not been proven in young children. Microscopic examination of blood, culture Blood Culture: No Growth at 5 days. [facility] Work Phone: LABORATORYOrdered By: Ellie Alfonso on 11-21-2021 ADMITTED TO INTENSIVE CARE UNIT FOR CONDITION OF INTEREST:FIND:PT:^KAROL T:ORD: No (11/21/21 9:56 PM) Invalid Interpretation Code [...] AO ADM SS EMPLOYED IN A HEALTHCARE SETTING:FIND:PT:^PATIENT :ORD: No (11/21/21 9:56 PM) Invalid Interpretation Code [...] Heme SS FIRST TEST FOR CONDITION OF INTEREST:FIND:PT:^PATIEN T:ORD: No (11/21/21 9:56 PM) Invalid Interpretation Code [...] SS HAS SYMPTOMS RELATED TO CONDITION OF INTEREST:FIND:PT:^PATIEN T:ORD: No (11/21/21 9:56 PM) Invalid Interpretation Code [...] Heme SS RESIDES IN A CONGREGATE CARE SETTING:FIND:PT:^PATIENT :ORD: No (11/21/21 9:56 PM) Invalid Interpretation Code [...] AO Chemistry S GFR Non- 55 ml/min/1.73sqm Inval id Interpretation Code AO Chemistry S LABORATORYOrdered By: [...] AO Chemistry S GFR Non- 46 ml/min/1.73sqm Inval id Interpretation Code AO Chemistry S SURGICAL PATHOLOGYon 2 020 SURGICAL PATHOLOGY Specimen #: [id number] Submitting Physician: RADHA WEIR M.D. FINAL [...] ALVARO/ROSITA/marlene 04/10/2020 Celi Bennett M.D. (Electronic Signature) _ SPECIMEN SUBMITTED A: SKIN, LEFT SUPERIOR PARIETAL [...] in one cassette. Gross examination performed at [facility], [address] [place] [address] J 04/09/2020 10:54:28 PM Date of Report: 04/10/2020 Date of Procedure: 04/09/2020 Date of Receipt: 04/09/2020 Submitted by: RADHA WEIR M.D. Location: Diagnostic interpretation performed at [facility], [address] [place] [address]. [place] Number: [id number] Normal [facility] Comment on above: Performed By: #### S #### See report for performing lab information. SURGICAL PATHOLOGYon 01-16- 020 SURGICAL PATHOLOGY Specimen #: [id number] Submitting Physician: DIPTI GONZALEZ FINAL DIAGNOSIS A. Skin, right shoulder, shave biopsy - Basal cell carcinoma, superficial type, see comment. SDB/lbk 01/17/2020 COMMENT The histologic features are compatible with a recurrent basal cell carcinoma. Fadi Solis M.D. (Electronic Signature) _ SPECIMEN SUBMITTED A: SKIN, RIGHT SHOULDER, SHAVE [...] in one cassette. Gross examination performed at [facility], [address] [place] [address] 01/16/2020 11:35:43 PM Date of Report: 01/17/2020 Date of Procedure: 01/16/2020 Date of Receipt: 01/16/2020 Submitted by: DIPTI GONZALEZ Location: Diagnostic interpretation performed at [place] [address]. CLIA Number: [id number] Normal [facility] Comment on above: Performed By: #### S #### See report for performing lab information. Vital Signs Date Time Vital Sign Value Performing Clinician Facility 08-06-2025 15:22-040 Body height 172.[address] Marci Lopez DO Work Phone: [facility] 08-06-2025 15:22-0400 Body mass index (BMI) [Ratio] 18.8 kg/m2 Dr. Marci Lopez DO Work Phone: [facility] 08-06-2025 15:22-0400 Body weight 56.[address] Marci Lopez DO Work Phone: [facility] 08-06-2025 15:22-0400 Diastolic blood pressure 87 mm[Hg] Dr. Marci Lopez DO Work Phone: [facility] 08-06-2025 15:22-0400 Heart rate 76 /min Dr. Marci Lopez DO Work Phone: [facility] 08-06-2025 15:22-0400 Systolic blood pressure 130 mm[Hg] Dr. Marci Lopez DO Work Phone: [facility] 07-16-2025 12:41-0400 Body weight 54.[address] Marci Lopez DO Work Phone: [phone] [address] 07-16-2025 12:41-0400 Heart rate 84 /min Dr. Marci Lopez DO Work Phone: [phone] [address] 07-16-2025 12:41-0400 Inhaled oxygen flow rate 2 L/min Dr. Marci Lopez DO Work Phone: [facility] 07-16-2025 12:41-0400 SaO2% (BldA) [Mass fraction] 94 % Dr. Marci Lopez DO Work Phone: [facility] 07-12-2025 07:05-0400 Body mass index (BMI) [Ratio] 18.8 kg/m2 Dr. Marci Lopez DO Work Phone: [facility] 07-12-2025 07:05-0400 Body temperature 97.7 [degF] Dr. Marci Lopez DO Work Phone: [facility] 07-12-2025 07:05-0400 Body weight 56.[address] Marci Lopez DO Work Phone: [facility] 07-12-2025 07:05-0400 Diastolic blood pressure 75 mm[Hg] Dr. Marci Lopez DO Work Phone: [facility] 07-12-2025 07:05-0400 Heart rate 85 /min Dr. Marci Lopez DO Work Phone: [facility] 07-12-2025 07:05-0400 Respiratory rate 18 /min Dr. Marci Lopez DO Work Phone: [facility] 07-12-2025 07:05-0400 SaO2% (BldA) [Mass fraction] 95 % Dr. Marci Lopez DO Work Phone: [facility] 07-12-2025 07:05-0400 Systolic blood pressure 132 mm[Hg] Dr. Marci Lopez DO Work Phone: [facility] 07-10-2025 09:37-0400 Body temperature 98.4 [degF] Leonel Lochan CUSTOMER ADVOCACY MANAGER.FOUNDATION RELATIONS MANAGER Work Phone: [facility] 07-10-2025 09:37-0400 Diastolic blood pressure 75 mm[Hg] Leonel Lochan CUSTOMER ADVOCACY MANAGER.FOUNDATION RELATIONS MANAGER Work Phone: [facility] 07-10-2025 09:37-0400 Heart rate 93 /min Leonel Lochan CUSTOMER ADVOCACY MANAGER.FOUNDATION RELATIONS MANAGER Work Phone: [facility] 07-10-2025 09:37-0400 Respiratory rate 20 /min Leonel Lochan CUSTOMER ADVOCACY MANAGER.FOUNDATION RELATIONS MANAGER Work Phone: [facility] 07-10-2025 09:37-0400 SaO2% (BldA) [Mass fraction] 97 % Leonel Lochan CUSTOMER ADVOCACY MANAGER.FOUNDATION RELATIONS MANAGER Work Phone: [facility] 07-10-2025 09:37-0400 Systolic blood pressure 164 mm[Hg] Leonel Lochan CUSTOMER ADVOCACY MANAGER.FOUNDATION RELATIONS MANAGER Work Phone: [facility] 07-04-2025 09:00-0400 Body temperature 98.6 [degF] Dr. Marci Lopez DO Work Phone: [facility] 07-04-2025 09:00-0400 Diastolic blood pressure 63 mm[Hg] Dr. Marci Lopez DO Work Phone: [facility] 07-04-2025 09:00-0400 Heart rate 67 /min Dr. Marci Lopez DO Work Phone: [facility] 07-04-2025 09:00-0400 Inhaled oxygen flow rate 2 L/min Dr. Marci Lopez DO Work Phone: [facility] 07-04-2025 09:00-0400 Respiratory rate 16 /min Dr. Marci Lopez DO Work Phone: [facility] 07-04-2025 09:00-0400 SaO2% (BldA) [Mass fraction] 99 % Dr. Marci Lopez DO Work Phone: [facility] 07-04-2025 09:00-0400 Systolic blood pressure 136 mm[Hg] Dr. Marci Lopez DO Work Phone: [facility] 07-02-2025 14:04-0400 Body height 172.[address] Marci Lopez DO Work Phone: [facility] 07-02-2025 14:04-0400 Body weight 53.[address] Marci Lopez DO Work Phone: [facility] 07-01-2025 21:16-0400 Body mass index (BMI) [Ratio] 18 kg/m2 Dr. Marci Lopez DO Work Phone: [facility] 07-01-2025 20:00-0400 Diastolic blood pressure 70 mm[Hg] Dr. Marci Lopez DO Work Phone: [facility] 07-01-2025 20:00-0400 Heart rate 65 /min Dr. Marci Lopez DO Work Phone: [facility] 07-01-2025 20:00-0400 Respiratory rate 16 /min Dr. Marci Lopez DO Work Phone: [facility] 07-01-2025 20:00-0400 SaO2% (BldA) [Mass fraction] 98 % Dr. Marci Lopez DO Work Phone: [facility] 07-01-2025 20:00-0400 Systolic blood pressure 165 mm[Hg] Dr. Marci Lopez DO Work Phone: [facility] 07-01-2025 19:16-0400 Body temperature 98.3 [degF] Dr. Marci Lopez DO Work Phone: [facility] 07-01-2025 19:00-0400 Inhaled oxygen flow rate 3 L/min Dr. Marci Lopez DO Work Phone: [facility] 07-01-2025 16:38-0400 Body height 172.[address] Marci Lopez DO Work Phone: [facility] 07-01-2025 16:38-0400 Body mass index (BMI) [Ratio] 19 kg/m2 Dr. Marci Lopez DO Work Phone: [facility] 07-01-2025 16:38-0400 Body weight 56.[address] Marci Lopez DO Work Phone: [facility] 06-11-2025 15:40-0400 Body temperature 98.6 [degF] Dr. Marci Lopez DO Work Phone: [facility] 06-11-2025 15:40-0400 Diastolic blood pressure 59 mm[Hg] Dr. Marci Lopez DO Work Phone: [facility] 06-11-2025 15:40-0400 Heart rate 66 /min Dr. Marci Lopez DO Work Phone: [facility] 06-11-2025 15:40-0400 Respiratory rate 18 /min Dr. Marci Lopez DO Work Phone: [facility] 06-11-2025 15:40-0400 SaO2% (BldA) [Mass fraction] 98 % Dr. Marci Lopez DO Work Phone: [facility] 06-11-2025 15:40-0400 Systolic blood pressure 130 mm[Hg] Dr. Marci Lopez DO Work Phone: [facility] 06-11-2025 09:06-0400 Body temperature 98.1 [degF] Dr. Marci Lopez DO Work Phone: [facility] 06-11-2025 09:06-0400 Diastolic blood pressure 63 mm[Hg] Dr. Marci Lopez DO Work Phone: [facility] 06-11-2025 09:06-0400 Heart rate 77 /min Dr. Marci Lopez DO Work Phone: [facility] 06-11-2025 09:06-0400 Respiratory rate 18 /min Dr. Marci Lopez DO Work Phone: [facility] 06-11-2025 09:06-0400 SaO2% (BldA) [Mass fraction] 98 % Dr. Marci Lopez DO Work Phone: [facility] 06-11-2025 09:06-0400 Systolic blood pressure 113 mm[Hg] Dr. Marci Lopez DO Work Phone: [facility] 06-11-2025 08:00-0400 Inhaled oxygen flow rate 2 L/min Dr. Marci Lopez DO Work Phone: [facility] 06-07-2025 13:19-0400 Body height 172.[address] Marci Lopez DO Work Phone: [facility] 06-07-2025 13:19-0400 Body mass index (BMI) [Ratio] 19.5 kg/m2 Dr. Marci Lopez DO Work Phone: [facility] 06-07-2025 13:19-0400 Body weight 58.[address] Marci Lopez DO Work Phone: [facility] 06-02-2025 14:09-0400 Inhaled oxygen flow rate 2 L/min Dr. Marci Lopez DO Work Phone: [facility] 06-02-2025 14:09-0400 SaO2% (BldA) [Mass fraction] 97 % Dr. Marci Lopez DO Work Phone: [facility] 06-02-2025 14:00-0400 Body temperature 98.4 [degF] Dr. Marci Lopez DO Work Phone: [facility] 06-02-2025 14:00-0400 Diastolic blood pressure 53 mm[Hg] Dr. Marci Lopez DO Work Phone: [facility] 06-02-2025 14:00-0400 Heart rate 69 /min Dr. Marci Lopez DO Work Phone: [facility] 06-02-2025 14:00-0400 Respiratory rate 12 /min Dr. Marci Lopez DO Work Phone: [facility] 06-02-2025 14:00-0400 Systolic blood pressure 106 mm[Hg] Dr. Marci Lopez DO Work Phone: [facility] 06-02-2025 10:33-0400 Body height 172.[address] Marci Lopez DO Work Phone: [facility] 06-02-2025 10:33-0400 Body mass index (BMI) [Ratio] 20.5 kg/m2 Dr. Marci Lopez DO Work Phone: [facility] 06-02-2025 10:33-0400 Body weight 61.[address] Marci Lopez DO Work Phone: [facility] 05-29-2025 15:17-0400 Body height 172.[address] Marci Lopez DO Work Phone: [facility] 05-29-2025 15:17-0400 Body mass index (BMI) [Ratio] 19.9 kg/m2 Dr. Marci Lopez DO Work Phone: [facility] 05-29-2025 15:17-0400 Body weight 59.[address] Marci Lopez DO Work Phone: [facility] 05-29-2025 15:17-0400 Diastolic blood pressure 57 mm[Hg] Dr. Marci Lopez DO Work Phone: [facility] 05-29-2025 15:17-0400 Heart rate 80 /min Dr. Marci Lopez DO Work Phone: [facility] 05-29-2025 15:17-0400 Respiratory rate 18 /min Dr. Marci Lopez DO Work Phone: [facility] 05-29-2025 15:17-0400 Systolic blood pressure 99 mm[Hg] Dr. Marci Lopez DO Work Phone: [facility] 05-22-2025 20:53-0400 Body temperature 98.5 [degF] Dr. Marci Lopez DO Work Phone: [facility] 05-22-2025 20:53-0400 Diastolic blood pressure 56 mm[Hg] Dr. Marci Lopez DO Work Phone: [facility] 05-22-2025 20:53-0400 Heart rate 69 /min Dr. Marci Lopez DO Work Phone: [facility] 05-22-2025 20:53-0400 Respiratory rate 16 /min Dr. Marci Lopez DO Work Phone: [facility] 05-22-2025 20:53-0400 SaO2% (BldA) [Mass fraction] 94 % Dr. Marci Lopez DO Work Phone: [facility] 05-22-2025 20:53-0400 Systolic blood pressure 111 mm[Hg] Dr. Marci Lopez DO Work Phone: [facility] 05-22-2025 19:08-0400 Inhaled oxygen flow rate 2 L/min Dr. Marci Lopez DO Work Phone: [facility] 05-22-2025 14:39-0400 Body height 172.[address] Marci Lopez DO Work Phone: [facility] 05-22-2025 14:39-0400 Body mass index (BMI) [Ratio] 21.1 kg/m2 Dr. Marci Lopez DO Work Phone: [facility] 05-22-2025 14:39-0400 Body weight 62.[address] Marci Lopez DO Work Phone: [facility] 05-03-2025 10:08-0400 Heart rate 66 /min Dr. Marci Lopez DO Work Phone: [facility] 05-03-2025 10:07-0400 Diastolic blood pressure 59 mm[Hg] Dr. Marci Lopez DO Work Phone: [facility] 05-03-2025 10:07-0400 Systolic blood pressure 112 mm[Hg] Dr. Marci Lopez DO Work Phone: [facility] 05-03-2025 08:22-0400 Body temperature 98.4 [degF] Dr. Marci Lopez DO Work Phone: [facility] 05-03-2025 08:22-0400 Respiratory rate 16 /min Dr. Marci Lopez DO Work Phone: [facility] 05-03-2025 08:22-0400 SaO2% (BldA) [Mass fraction] 94 % Dr. Marci Lopez DO Work Phone: [facility] 05-01-2025 14:36-0400 Body mass index (BMI) [Ratio] 20.6 kg/m2 Dr. Marci Lopez DO Work Phone: [facility] 05-01-2025 14:36-0400 Body weight 61.[address] Marci Lopez DO Work Phone: [facility] 04-25-2025 20:00-0400 Heart rate 64 /min Dr. Marci Lopez DO Work Phone: [facility] 04-25-2025 16:36-0400 Body mass index (BMI) [Ratio] 20.4 kg/m2 Dr. Marci Lopez DO Work Phone: [facility] 04-25-2025 16:36-0400 Body weight 60.[address] Marci Lopez DO Work Phone: 0(597)524-5636[address] [place] [address] 04-25-2025 15:10-0400 Body height 172.[address] Marci Lopez DO Work Phone: [facility] 04-25-2025 09:01-0400 Body temperature 97.9 [degF] Dr. Marci Lopez DO Work Phone: [facility] 04-25-2025 09:01-0400 Diastolic blood pressure 51 mm[Hg] Dr. Marci Lopez DO Work Phone: [facility] 04-25-2025 09:01-0400 Respiratory rate 16 /min Dr. Marci Lopez DO Work Phone: [facility] 04-25-2025 09:01-0400 Systolic blood pressure 111 mm[Hg] Dr. Marci Lopez DO Work Phone: [facility] 04-25-2025 08:14-0400 Body temperature 97.4 [degF] Dr. Marci Lopez DO Work Phone: [facility] 04-25-2025 08:14-0400 Diastolic blood pressure 57 mm[Hg] Dr. Marci Lopez DO Work Phone: [facility] 04-25-2025 08:14-0400 Heart rate 63 /min Dr. Marci Lopez DO Work Phone: [facility] 04-25-2025 08:14-0400 Respiratory rate 14 /min Dr. Marci Lopez DO Work Phone: [facility] 04-25-2025 08:14-0400 SaO2% (BldA) [Mass fraction] 94 % Dr. Marci Lopez DO Work Phone: [facility] 04-25-2025 08:14-0400 Systolic blood pressure 108 mm[Hg] Dr. Marci Lopez DO Work Phone: [facility] 04-25-2025 06:48-0400 Body mass index (BMI) [Ratio] 45 kg/m2 Dr. Marci Lopez DO Work Phone: [facility] 04-25-2025 06:48-0400 Body weight 134.[address] Marci Lopez DO Work Phone: [facility] 04-20-2025 14:41-0400 Body temperature 98.7 [degF] Dr. Marci Lopez DO Work Phone: [facility] 04-20-2025 14:41-0400 Diastolic blood pressure 57 mm[Hg] Dr. Marci Lopez DO Work Phone: [facility] 04-20-2025 14:41-0400 Heart rate 60 /min Dr. Marci Lopez DO Work Phone: [facility] 04-20-2025 14:41-0400 Respiratory rate 16 /min Dr. Marci Lopez DO Work Phone: [facility] 04-20-2025 14:41-0400 SaO2% (BldA) [Mass fraction] 97 % Dr. Marci Lopez DO Work Phone: [facility] 04-20-2025 14:41-0400 Systolic blood pressure 136 mm[Hg] Dr. Marci Lopez DO Work Phone: [facility] 04-19-2025 13:18-0400 Body height 172.[address] Marci Lopez DO Work Phone: [facility] 04-19-2025 13:18-0400 Body mass index (BMI) [Ratio] 20.7 kg/m2 Dr. Marci Lopez DO Work Phone: [facility] 04-19-2025 13:18-0400 Body weight [address] Marci Lopez DO Work Phone: [facility] 04-19-2025 12:00-0400 Diastolic blood pressure 75 mm[Hg] Dr. Marci Lopez DO Work Phone: [facility] 04-19-2025 12:00-0400 Heart rate 77 /min Dr. Marci Lopez DO Work Phone: [facility] 04-19-2025 12:00-0400 Respiratory rate 18 /min Dr. Marci Lopez DO Work Phone: [facility] 04-19-2025 12:00-0400 SaO2% (BldA) [Mass fraction] 96 % Dr. Marci Lopez DO Work Phone: [facility] 04-19-2025 12:00-0400 Systolic blood pressure 174 mm[Hg] Dr. Marci Lopez DO Work Phone: [facility] 04-19-2025 11:30-0400 Body temperature 98 [degF] Dr. Marci Lopez DO Work Phone: [facility] 04-19-2025 03:35-0400 Body height 172.[address] Marci Lopez DO Work Phone: [facility] 04-19-2025 03:35-0400 Body mass index (BMI) [Ratio] 21.6 kg/m2 Dr. Marci Lopez DO Work Phone: [facility] 04-19-2025 03:35-0400 Body weight 64.[address] Marci Lopez DO Work Phone: [facility] 04-04-2025 12:35-0400 Diastolic blood pressure 47 mm[Hg] Mri (1.5t) [facility] 04-04-2025 12:35-0400 Heart rate 90 /min Mri (1.5t) [facility] Comment on above: pacer taken out of MRI safe mode 04-04-2025 12:35-0400 Respiratory rate 18 /min [facility] 04-04-2025 12:35-0400 SaO2% (BldA) [Mass fraction] 98 % Mri (1.5t) [facility] 04-04-2025 12:35-0400 Systolic blood pressure 125 mm[Hg] Mri (1.5t) [facility] 03-10-2025 14:00-0400 Diastolic blood pressure 70 mm[Hg] Dr. Marci Lopez DO Work Phone: [facility] 03-10-2025 14:00-0400 Heart rate 60 /min Dr. Marci Lopez DO Work Phone: [facility] 03-10-2025 14:00-0400 Respiratory rate 18 /min Dr. Marci Lopez DO Work Phone: [facility] 03-10-2025 14:00-0400 SaO2% (BldA) [Mass fraction] 97 % Dr. Marci Lopez DO Work Phone: [facility] 03-10-2025 14:00-0400 Systolic blood pressure 151 mm[Hg] Dr. Marci Lopez DO Work Phone: [facility] 03-10-2025 11:28-0400 Body mass index (BMI) [Ratio] 20.9 kg/m2 Dr. Marci Lopez DO Work Phone: [facility] 03-10-2025 11:28-0400 Body weight 62.[address] Marci Lopez DO Work Phone: [facility] 03-10-2025 11:27-0400 Body height 172.[address] Marci Lopez DO Work Phone: [facility] 03-10-2025 11:27-0400 Body temperature 97.8 [degF] Dr. Marci Lopez DO Work Phone: [facility] 02-27-2025 15:22-0400 Body mass index (BMI) [Ratio] 20.78 kg/m2 Leyla Murphy MD Work Phone: [facility] 02-27-2025 15:22-0400 Body weight 62 kg Leyla Murphy MD Work Phone: [facility] 02-27-2025 15:22-0400 SaO2% (BldA) [Mass fraction] 96 % Leyla Murphy MD Work Phone: [facility] 02-13-2025 09:10-0400 Body mass index (BMI) [Ratio] 20.7 kg/m2 Dr. Marci Lopez DO Work Phone: [facility] 02-13-2025 09:10-0400 Body weight 61.[address] Marci Lopez DO Work Phone: [facility] 02-13-2025 09:10-0400 Diastolic blood pressure 67 mm[Hg] Dr. Marci Lopez DO Work Phone: [facility] 02-13-2025 09:10-0400 Systolic blood pressure 107 mm[Hg] Dr. Marci Lopez DO Work Phone: [facility] 01-23-2025 13:16-0500 Body temperature 97.3 [degF] Dr. Marci Lopez DO Work Phone: [facility] 01-23-2025 13:16-0500 Diastolic blood pressure 66 mm[Hg] Dr. Marci Lopez DO Work Phone: 2(007)614-700340 [place] [address] 01-23-2025 13:16-0500 Heart rate 62 /min Dr. Marci Lopez DO Work Phone: [facility] 01-23-2025 13:16-0500 Respiratory rate 16 /min Dr. Marci Lopez DO Work Phone: [facility] 01-23-2025 13:16-0500 SaO2% (BldA) [Mass fraction] 95 % Dr. Marci Lopez DO Work Phone: [facility] 01-23-2025 13:16-0500 Systolic blood pressure 121 mm[Hg] Dr. Marci Lopez DO Work Phone: 3(574)866-721040 [place] [address] 01-18-2025 08:06-0500 Body mass index (BMI) [Ratio] 20 kg/m2 Dr. Marci Lopez DO Work Phone: 2(596)[phone] [place] [address] 01-18-2025 08:06-0500 Body weight 59.[address] Marci Lopez DO Work Phone: [facility] 01-18-2025 08:06-0500 Diastolic blood pressure 73 mm[Hg] Dr. Marci Lopez DO Work Phone: [facility] 01-18-2025 08:06-0500 Heart rate 97 /min Dr. Marci Lopez DO Work Phone: [facility] 01-18-2025 08:06-0500 Respiratory rate 18 /min Dr. Marci Lopez DO Work Phone: [facility] 01-18-2025 08:06-0500 SaO2% (BldA) [Mass fraction] 97 % Dr. Marci Lopez DO Work Phone: [facility] 01-18-2025 08:06-0500 Systolic blood pressure 114 mm[Hg] Dr. Marci Lopez DO Work Phone: [facility] 12-22-2024 11:30-0500 Diastolic blood pressure 75 mm[Hg] Dr. Marci Lopez DO Work Phone: [facility] 12-22-2024 11:30-0500 Heart rate 85 /min Dr. Marci Lopez DO Work Phone: [facility] 12-22-2024 11:30-0500 Respiratory rate 16 /min Dr. Marci Lopez DO Work Phone: [facility] 12-22-2024 11:30-0500 SaO2% (BldA) [Mass fraction] 99 % Dr. Marci Lopez DO Work Phone: [facility] 12-22-2024 11:30-0500 Systolic blood pressure 117 mm[Hg] Dr. Marci Lopez DO Work Phone: [facility] 12-19-2024 15:14-0500 Body temperature 98 [degF] Dr. Marci Lopez DO Work Phone: [facility] 12-19-2024 15:14-0500 Body weight 60.[address] Marci oLpez DO Work Phone: [facility] 12-19-2024 15:14-0500 Diastolic blood pressure 67 mm[Hg] Dr. Marci Lopez DO Work Phone: [facility] 12-19-2024 15:14-0500 Heart rate 74 /min Dr. Marci Lopez DO Work Phone: [facility] 12-19-2024 15:14-0500 Respiratory rate 16 /min Dr. Marci Lopez DO Work Phone: [facility] 12-19-2024 15:14-0500 SaO2% (BldA) [Mass fraction] 96 % Dr. Marci Lopez DO Work Phone: [facility] 12-19-2024 15:14-0500 Systolic blood pressure 123 mm[Hg] Dr. Marci Lopez DO Work Phone: [facility] 11-28-2024 13:54-0500 Body mass index (BMI) [Ratio] 20 kg/m2 Dr. Marci Lopez DO Work Phone: [facility] 11-28-2024 13:54-0500 Body weight 59.[address] Marci Lopez DO Work Phone: 3(608)148-918940 [place] [address] 11-28-2024 13:54-0500 Diastolic blood pressure 57 mm[Hg] Dr. Marci Lopez DO Work Phone: [facility] 11-28-2024 13:54-0500 Heart rate 85 /min Dr. Marci Lopez DO Work Phone: 3(744)[phone] [address] 11-28-2024 13:54-0500 Respiratory rate 18 /min Dr. Marci Lopez DO Work Phone: [facility] 11-28-2024 13:54-0500 SaO2% (BldA) [Mass fraction] 96 % Dr. Marci Lopez DO Work Phone: [facility] 11-28-2024 13:54-0500 Systolic blood pressure 92 mm[Hg] Dr. Marci Lopez DO Work Phone: 4(924)[phone] [place] [address] 11-18-2024 17:16-0500 Body temperature 98.7 [degF] Dr. Marci Lopez DO Work Phone: [facility] 11-18-2024 17:16-0500 Heart rate 62 /min Dr. Marci Lopez DO Work Phone: [facility] 11-18-2024 17:16-0500 Respiratory rate 18 /min Dr. Marci Lopez DO Work Phone: [facility] 11-18-2024 17:16-0500 SaO2% (BldA) [Mass fraction] 97 % Dr. Marci Lopez DO Work Phone: [facility] 11-18-2024 14:20-0500 Diastolic blood pressure 74 mm[Hg] Dr. Marci Lopez DO Work Phone: [facility] 11-18-2024 14:20-0500 Systolic blood pressure 122 mm[Hg] Dr. Marci Lopez DO Work Phone: [facility] 08-01-2024 15:26-0400 Body weight 59.[address] Marci Lopez DO Work Phone: [facility] 05-17-2024 14:39-0400 Body height 172.7 cm Ghazala Gusman MD Work Phone: [facility] 05-17-2024 14:39-0400 Body mass index (BMI) [Ratio] 19.52 kg/m2 Ghazala Gusman MD Work Phone: [facility] 05-17-2024 14:39-0400 Body weight 58.24 kg Ghazala Gusman MD Work Phone: [facility] 05-17-2024 14:39-0400 Diastolic blood pressure 58 mm[Hg] Ghazala Gusman MD Work Phone: [facility] 05-17-2024 14:39-0400 Heart rate 72 /min Ghazala Gusman MD Work Phone: [facility] 05-17-2024 14:39-0400 SaO2% (BldA) [Mass fraction] 97 % Ghazala Gusman MD Work Phone: [facility] 05-17-2024 14:39-0400 Systolic blood pressure 95 mm[Hg] Ghazala Gusman MD Work Phone: [facility] 03-15-2024 09:18-0400 Heart rate 62 /min Dr. Adrienne Byers Work Phone: [facility] 03-15-2024 09:12-0400 Body temperature 97.7 [degF] Dr. Adrienne Byers Work Phone: [facility] 03-15-2024 09:12-0400 Diastolic blood pressure 50 mm[Hg] Dr. Adrienne yBers Work Phone: [facility] 03-15-2024 09:12-0400 Respiratory rate 16 /min Dr. Adrienne Byers Work Phone: [facility] 03-15-2024 09:12-0400 SaO2% (BldA) [Mass fraction] 96 % Dr. Adrienne Byers Work Phone: [facility] 03-15-2024 09:12-0400 Systolic blood pressure 122 mm[Hg] Dr. Adrienne Byers Work Phone: [facility] 03-14-2024 14:00-0400 Body mass index (BMI) [Ratio] 19.8 kg/m2 Dr. Adrienne Byers Work Phone: [facility] 03-14-2024 14:00-0400 Body weight 59.[address] Adrienne Byers Work Phone: [facility] 03-08-2024 12:02-0400 Body height 172.[address] Adrienne Byers Work Phone: [facility] 02-29-2024 09:30-0400 Body temperature 98.5 [degF] Dr. Adrienne Byers Work Phone: [facility] 02-29-2024 09:30-0400 Diastolic blood pressure 63 mm[Hg] Dr. Adrienne Byers Work Phone: [facility] 02-29-2024 09:30-0400 Heart rate 73 /min Dr. Adrienne Byers Work Phone: [facility] 02-29-2024 09:30-0400 Respiratory rate 16 /min Dr. Adrienne Byers Work Phone: [facility] 02-29-2024 09:30-0400 SaO2% (BldA) [Mass fraction] 95 % Dr. Adrienne Byers Work Phone: [facility] 02-29-2024 09:30-0400 Systolic blood pressure 118 mm[Hg] Dr. Adrienne Byers Work Phone: [facility] 02-26-2024 22:00-0400 Inhaled oxygen flow rate 2 L/min Dr. Adrienne Byers Work Phone: [facility] 02-25-2024 13:30-0400 Body height 172.[address] Adrienne Byers Work Phone: [facility] 02-25-2024 13:30-0400 Body weight 58.[address] Adrienne Byers Work Phone: [facility] 02-22-2024 11:00-0400 Body mass index (BMI) [Ratio] 19.5 kg/m2 Dr. Adrienne Byers Work Phone: [facility] 02-21-2024 19:53-0400 Body temperature 98.2 [degF] Dr. Adrienne Byers Work Phone: [facility] 02-21-2024 19:53-0400 Diastolic blood pressure 45 mm[Hg] Dr. Adrienne Byers Work Phone: [facility] 02-21-2024 19:53-0400 Heart rate 66 /min Dr. Adrienne Byers Work Phone: [facility] 02-21-2024 19:53-0400 Respiratory rate 20 /min Dr. Adrienne Byers Work Phone: [facility] 02-21-2024 19:53-0400 SaO2% (BldA) [Mass fraction] 97 % Dr. Adrienne Byers Work Phone: [facility] 02-21-2024 19:53-0400 Systolic blood pressure 105 mm[Hg] Dr. Adrienne Byers Work Phone: [facility] 02-21-2024 15:33-0400 Body mass index (BMI) [Ratio] 20.2 kg/m2 Dr. Adrienne yBers Work Phone: [facility] 02-21-2024 15:33-0400 Body weight 60.[address] Adrienne Byers Work Phone: [facility] 02-21-2024 15:32-0400 Body height 172.[address] Adrienne Byers Work Phone: [facility] 02-19-2024 18:33-0400 Body temperature 98.3 [degF] [facility] 02-19-2024 18:33-0400 Diastolic blood pressure 74 mm[Hg] [facility] 02-19-2024 18:33-0400 Heart rate 76 /min [facility] 02-19-2024 18:33-0400 Respiratory rate 16 /min [facility] 02-19-2024 18:33-0400 SaO2% (BldA) [Mass fraction] 96 % [facility] 02-19-2024 18:33-0400 Systolic blood pressure 127 mm[Hg] [facility] 02-19-2024 15:07-0400 Body height 172.72 cm [facility] 02-19-2024 15:07-0400 Body mass index (BMI) [Ratio] 19.8 kg/m2 [facility] 02-19-2024 15:07-0400 Body weight 59.23 kg [facility] 12-08-2023 18:27-0500 Diastolic blood pressure 66 mm[Hg] Dr. Adrienne Byers Work Phone: [facility] 12-08-2023 18:27-0500 Heart rate 77 /min Dr. Adrienne Byers Work Phone: [facility] 12-08-2023 18:27-0500 Respiratory rate 16 /min Dr. Adrienne Byers Work Phone: [facility] 12-08-2023 18:27-0500 SaO2% (BldA) [Mass fraction] 99 % Dr. Adrienne Byers Work Phone: [facility] 12-08-2023 18:27-0500 Systolic blood pressure 118 mm[Hg] Dr. Adrienne Byers Work Phone: [facility] 12-08-2023 15:46-0500 Body mass index (BMI) [Ratio] 20.7 kg/m2 Dr. Adrienne Byers Work Phone: [facility] 12-08-2023 15:46-0500 Body weight 61.[address] Adrienne Byers Work Phone: [facility] 12-08-2023 13:03-0500 Body height 172.[address] Adrienne Byers Work Phone: [facility] 12-08-2023 13:03-0500 Body temperature 96.7 [degF] Dr. Adrienne Byers Work Phone: [facility] 10-12-2023 13:31-0500 Body mass index (BMI) [Ratio] 21.1 kg/m2 Dr. Adrienne Byers Work Phone: [facility] 10-12-2023 08:40-0500 Body temperature 97.8 [degF] Dr. Adrienne Byers Work Phone: [facility] 10-12-2023 08:40-0500 Diastolic blood pressure 67 mm[Hg] Dr. Adrienne Byers Work Phone: [facility] 10-12-2023 08:40-0500 Heart rate 60 /min Dr. Adrienne Byers Work Phone: [facility] 10-12-2023 08:40-0500 Respiratory rate 14 /min Dr. Adrienne Byers Work Phone: [facility] 10-12-2023 08:40-0500 SaO2% (BldA) [Mass fraction] 100 % Dr. Adrienne Byers Work Phone: [facility] 10-12-2023 08:40-0500 Systolic blood pressure 143 mm[Hg] Dr. Adrienne Byers Work Phone: [facility] 10-12-2023 06:00-0500 Body weight 63.[address] Adrienne Byers Work Phone: [facility] 10-07-2023 15:14-0500 Body height 172.[address] Adrienne Byers Work Phone: [facility] 10-07-2023 15:04-0500 Diastolic blood pressure 93 mm[Hg] Dr. Adrienne Byers Work Phone: [facility] 10-07-2023 15:04-0500 Heart rate 61 /min Dr. Adrienne Byers Work Phone: [facility] 10-07-2023 15:04-0500 Respiratory rate 18 /min Dr. Adrienne Byers Work Phone: [facility] 10-07-2023 15:04-0500 SaO2% (BldA) [Mass fraction] 97 % Dr. Adrienne Byers Work Phone: [facility] 10-07-2023 15:04-0500 Systolic blood pressure 107 mm[Hg] Dr. Adrienne Byers Work Phone: [facility] 10-07-2023 13:04-0500 Body height 172.[address] Adrienne Byers Work Phone: [facility] 10-07-2023 13:04-0500 Body mass index (BMI) [Ratio] 21.2 kg/m2 Dr. Adrienne Byers Work Phone: [facility] 10-07-2023 13:04-0500 Body weight 63.[address] Adrienne Byers Work Phone: [facility] 10-07-2023 12:35-0500 Body temperature 97.8 [degF] Dr. Adrienne Byers Work Phone: [facility] 10-07-2023 09:42-0500 Diastolic blood pressure 47 mm[Hg] Dr. Adrienne Byers Work Phone: [facility] 10-07-2023 09:42-0500 Heart rate 75 /min Dr. Adrienne Byers Work Phone: [facility] 10-07-2023 09:42-0500 Systolic blood pressure 103 mm[Hg] Dr. Adrienne Byers Work Phone: [facility] 10-06-2023 16:00-0500 Body temperature 97.7 [degF] Dr. Adrienne Byers Work Phone: [facility] 10-06-2023 16:00-0500 Respiratory rate 14 /min Dr. Adrienne Byers Work Phone: [facility] 10-06-2023 16:00-0500 SaO2% (BldA) [Mass fraction] 97 % Dr. Adrienne Byers Work Phone: [facility] 10-06-2023 15:02-0500 Body weight 61.[address] Adrienne Byers Work Phone: [facility] 10-05-2023 11:08-0500 Body mass index (BMI) [Ratio] 20.5 kg/m2 Dr. Adrienne Byers Work Phone: [facility] 10-01-2023 14:27-0500 Body mass index (BMI) [Ratio] 20.8 kg/m2 Dr. Adrienne Byers Work Phone: [facility] 10-01-2023 13:40-0500 Body temperature 98.1 [degF] Dr. Adrienne Byers Work Phone: [facility] 10-01-2023 13:40-0500 Diastolic blood pressure 68 mm[Hg] Dr. Adrienne Byers Work Phone: [facility] 10-01-2023 13:40-0500 Heart rate 65 /min Dr. Adrienne Byers Work Phone: [facility] 10-01-2023 13:40-0500 Respiratory rate 18 /min Dr. Adrienne Byers Work Phone: [facility] 10-01-2023 13:40-0500 SaO2% (BldA) [Mass fraction] 97 % Dr. Adrienne Byers Work Phone: [facility] 10-01-2023 13:40-0500 Systolic blood pressure 138 mm[Hg] Dr. Adrienne Byers Work Phone: [facility] 09-29-2023 14:06-0500 Body height 170.[address] Adrienne Byers Work Phone: [facility] 09-29-2023 14:06-0500 Body weight 60.[address] Adrienne Byers Work Phone: [facility] 09-28-2023 22:00-0500 Diastolic blood pressure 77 mm[Hg] [facility] 09-28-2023 22:00-0500 Heart rate 63 /min [facility] 09-28-2023 22:00-0500 Respiratory rate 18 /min [facility] 09-28-2023 22:00-0500 SaO2% (BldA) [Mass fraction] 99 % [facility] 09-28-2023 22:00-0500 Systolic blood pressure 152 mm[Hg] [facility] 09-28-2023 20:41-0500 Body height 170.18 cm [facility] 09-28-2023 20:41-0500 Body mass index (BMI) [Ratio] 21.4 kg/m2 [facility] 09-28-2023 20:41-0500 Body weight 61.9 kg [facility] 09-28-2023 20:00-0500 Body temperature 98.1 [degF] [facility] 08-18-2023 12:08-0400 Body temperature 98.6 [degF] JAXON KUHN MD [facility] 08-18-2023 12:08-0400 Diastolic Blood Pressure Non-Invasive 63 1 JAXON KUHN MD [facility] 08-18-2023 12:08-0400 Heart rate 73 /min JAXON KUHN MD [facility] 08-18-2023 12:08-0400 Respiratory rate 16 /min JAXON KUHN MD [facility] 08-18-2023 12:08-0400 Systolic Blood Pressure Non-Invasive 94 1 JAXON KUHN MD [facility] 08-11-2023 06:42-0400 Body temperature 98.24 [degF] JAXON KUHN MD [facility] 08-11-2023 06:42-0400 Diastolic Blood Pressure Non-Invasive 61 1 JAXON KUHN MD [facility] 08-11-2023 06:42-0400 Heart rate 61 /min JAXON KUHN MD [facility] 08-11-2023 06:42-0400 Respiratory rate 18 /min JAXON KUHN MD [facility] 08-11-2023 06:42-0400 Systolic Blood Pressure Non-Invasive 106 1 JAXON KUHN MD [facility] 08-04-2023 12:09-0400 Body height 172.7 cm JAXON KUHN MD [facility] 08-04-2023 12:09-0400 Body temperature 98.6 [degF] JAXON KUHN MD [facility] 08-04-2023 12:09-0400 Body weight 63 kg JAXON KUHN MD [facility] 08-04-2023 12:09-0400 Diastolic Blood Pressure Non-Invasive 60 1 JAXON KUHN MD [facility] 08-04-2023 12:09-0400 Heart rate 60 /min JAXON KUHN MD [facility] 08-04-2023 12:09-0400 Respiratory rate 18 /min JAXON KUHN MD [facility] 08-04-2023 12:09-0400 Systolic Blood Pressure Non-Invasive 104 1 JAXON KUHN MD [facility] 05-12-2023 13:28-0400 Body height 172.7 cm Ghazala Gusman MD Work Phone: [facility] 05-12-2023 13:28-0400 Body weight 62.14 kg Ghazala Gusman MD Work Phone: [facility] 05-12-2023 13:28-0400 Diastolic blood pressure 57 mm[Hg] Ghazala Gusman MD Work Phone: [facility] 05-12-2023 13:28-0400 Heart rate 73 /min Ghazala Gusman MD Work Phone: [facility] 05-12-2023 13:28-0400 Respiratory rate 20 /min Ghazala Gusman MD Work Phone: [facility] 05-12-2023 13:28-0400 SaO2% (BldA) [Mass fraction] 97 % Ghazala Gusman MD Work Phone: [facility] 05-12-2023 13:28-0400 Systolic blood pressure 102 mm[Hg] Ghazala Gusman MD Work Phone: [facility] 08-20-2022 00:26-0400 Diastolic blood pressure 33 mm[Hg] DR AKIN SALGUERO DO [facility] 08-20-2022 00:26-0400 Heart rate 60 /min DR AKIN SALGUERO DO [facility] 08-20-2022 00:26-0400 Respiratory rate 16 /min DR AKIN SALGUERO DO [facility] 08-20-2022 00:26-0400 Systolic blood pressure 102 mm[Hg] DR GERARDO MARLONAUDI DO [facility] 08-20-2022 00:09-0400 Diastolic blood pressure 33 mm[Hg] DR GERARDO MARLONAUDI DO [facility] 08-20-2022 00:09-0400 Heart rate 60 /min DR GERARDO MARLONAUDI DO [facility] 08-20-2022 00:09-0400 Reason For Taking VItal Signs DR AKIN SALGUERO DO [facility] 08-20-2022 00:09-0400 Respiratory rate 16 /min DR GERARDO MARLONAUDI DO [facility] 08-20-2022 00:09-0400 Systolic blood pressure 102 mm[Hg] DR AKIN SALGUERO DO [facility] 08-19-2022 23:40-0400 Diastolic blood pressure 70 mm[Hg] DR GERARDO MARLONAUDI DO [facility] 08-19-2022 23:40-0400 Heart rate 60 /min DR GERARDO MARLONAUDI DO [facility] 08-19-2022 23:40-0400 Mean blood pressure 79 mm[Hg] DR AKIN SALGUERO DO [facility] 08-19-2022 23:40-0400 Respiratory rate 12 /min DR AKIN SALGUERO DO [facility] 08-19-2022 23:40-0400 Systolic blood pressure 96 mm[Hg] DR AKIN SALGUERO DO [facility] 08-19-2022 15:07-0400 Body temperature 98.78 [degF] DR AKIN SALGUERO DO [facility] 06-23-2022 15:16-0400 Body height 172.7 cm Sherif Ramirez MD Work Phone: [facility] 06-23-2022 15:16-0400 Body weight 65.32 kg Sherif Ramirez MD Work Phone: [facility] 06-23-2022 15:16-0400 Diastolic blood pressure 64 mm[Hg] Sherif Ramirez MD Work Phone: [facility] 06-23-2022 15:16-0400 Heart rate 75 /min Sherif Ramirez MD Work Phone: [facility] 06-23-2022 15:16-0400 SaO2% (BldA) [Mass fraction] 97 % Sherif Ramirez MD Work Phone: [facility] 06-23-2022 15:16-0400 Systolic blood pressure 116 mm[Hg] Sherif Ramirez MD Work Phone: [facility] 06-04-2022 13:42-0400 Diastolic blood pressure 67 mm[Hg] Ghazala Gusman MD Work Phone: [facility] 06-04-2022 13:42-0400 Heart rate 77 /min Ghazala Gusman MD Work Phone: [facility] 06-04-2022 13:42-0400 SaO2% (BldA) [Mass fraction] 98 % Ghazala Gusman MD Work Phone: [facility] 06-04-2022 13:42-0400 Systolic blood pressure 115 mm[Hg] Ghazala Gusman MD Work Phone: [facility] 05-22-2022 15:55-0400 Diastolic blood pressure 60 mm[Hg] NOREEN HICKS MD [facility] 05-22-2022 15:55-0400 Heart rate 60 /min NOREEN HICKS MD [facility] 05-22-2022 15:55-0400 Respiratory rate 16 /min NOREEN HICKS MD [facility] 05-22-2022 15:55-0400 Systolic blood pressure 130 mm[Hg] NOREEN HICKS MD [facility] 05-22-2022 15:45-0400 Diastolic blood pressure 60 mm[Hg] NOREEN HICKS MD [facility] 05-22-2022 15:45-0400 Heart rate 60 /min NOREEN HICKS MD [facility] 05-22-2022 15:45-0400 Respiratory rate 11 /min NOREEN HICKS MD [facility] 05-22-2022 15:45-0400 Systolic blood pressure 130 mm[Hg] NOREEN HICKS MD [facility] 05-22-2022 15:30-0400 Diastolic blood pressure 50 mm[Hg] NOREEN HICKS MD [facility] 05-22-2022 15:30-0400 Heart rate 60 /min NOREEN HICKS MD [facility] 05-22-2022 15:30-0400 Respiratory rate 12 /min NOREEN HICKS MD [facility] 05-22-2022 15:30-0400 Systolic blood pressure 135 mm[Hg] NOREEN HICKS MD [facility] 05-22-2022 12:54-0400 Body weight 72.4 kg NOREEN HICKS MD [facility] 05-22-2022 12:46-0400 Body temperature 100.22 [degF] NROEEN HICKS MD [facility] 05-22-2022 12:46-0400 Heart rate 89 /min NOREEN HICKS MD [facility] 04-25-2022 23:34-0400 Body temperature 98.24 [degF] NATAN ARRIETA DO [facility] 04-25-2022 23:34-0400 Diastolic blood pressure 66 mm[Hg] [facility] 04-25-2022 23:34-0400 Heart rate 71 /min [facility] 04-25-2022 23:34-0400 Systolic blood pressure 122 mm[Hg] [facility] 04-03-2022 15:58-0400 diastolic 56 mm[Hg] DR JAC CHRISTENSEN MD [facility] 04-03-2022 15:58-0400 Heart rate 53 /min DR JAC CHRISTENSEN MD [facility] 04-03-2022 15:58-0400 systolic 98 mm[Hg] DR JAC CHRISTENSEN MD [facility] 04-03-2022 14:50-0400 Body temperature 98.06 [degF] DR JAC CHRISTENSEN MD [facility] 04-03-2022 14:50-0400 diastolic 60 mm[Hg] DR JAC CHRISTENSEN MD [facility] 04-03-2022 14:50-0400 Heart rate 62 /min DR JAC CHRISTENSEN MD [facility] 04-03-2022 14:50-0400 Respiratory rate 18 /min DR JAC CHRISTENSEN MD [address] [place] [address] 04-03-2022 14:50-0400 systolic 105 mm[Hg] DR JAC CHRISTENSEN MD [address] [place] [address] 04-02-2022 16:13-0400 Diastolic blood pressure 56 mm[Hg] DR JAC CHRISTENSEN MD [address] 04-02-2022 16:13-0400 Heart rate 60 /min DR JAC CHRISTENSEN MD [address] [place] [address] 04-02-2022 16:13-0400 Mean blood pressure 72 mm[Hg] DR JAC CHRISTENSEN MD [address] [place] [address] 04-02-2022 16:13-0400 Respiratory rate 18 /min DR JAC CHRISTENSEN MD [address] 04-02-2022 16:13-0400 Systolic blood pressure 103 mm[Hg] DR JAC CHRISTENSEN MD [address] 04-02-2022 14:54-0400 diastolic 51 mm[Hg] DR JAC CHRISTENSEN MD [address] [place] [address] 04-02-2022 14:54-0400 Heart rate 67 /min DR JAC CHRISTENSEN MD [address] [place] [address] 04-02-2022 14:54-0400 Respiratory rate 18 /min DR JAC CHRISTENSEN MD [address] [place] [address] 04-02-2022 14:54-0400 systolic 101 mm[Hg] DR JAC CHRISTENSEN MD [facility] 12-25-2021 16:07-0500 Body temperature 97.52 [degF] MITCHELL MARY MD [facility] 12-25-2021 16:07-0500 Diastolic Blood Pressure NBP 46 1 MITCHELL MARY MD [address] [place] [address] 12-25-2021 16:07-0500 Heart rate 70 /min MITCHELL MARY MD [facility] 12-25-2021 16:07-0500 Mean blood pressure 58 mm[Hg] MITCHELL MARY MD [address] [place] [address] 12-25-2021 16:07-0500 Reason For Taking VItal Signs MITCHELL MARY MD [facility] 12-25-2021 16:07-0500 Respiratory rate 16 /min MITCHELL MARY MD [facility] 12-25-2021 16:07-0500 Systolic Blood Pressure NBP 94 1 MITCHELL MARY MD [facility] 12-25-2021 11:52-0500 Heart rate 75 /min MITCHELL MARY MD [facility] 12-25-2021 11:52-0500 Reason For Taking VItal Signs MITCHELL MARY MD [facility] 12-25-2021 11:43-0500 Heart rate 67 /min MITCHELL MARY MD [facility] 12-25-2021 11:43-0500 Reason For Taking VItal Signs MITCHELL MARY MD [facility] 12-25-2021 10:58-0500 Body temperature 98.06 [degF] MITCHELL MARY MD [address] [place] [address] 12-25-2021 10:58-0500 Diastolic Blood Pressure NBP 52 1 MITCHELL MARY MD [address] [place] [address] 12-25-2021 10:58-0500 Systolic Blood Pressure NBP 115 1 MITCHELL MARY MD [facility] 12-25-2021 08:44-0500 Heart rate 74 /min MITCHELL MARY MD [facility] 12-25-2021 06:53-0500 Body temperature 98.24 [degF] MITCHELL MARY MD [facility] 12-25-2021 06:53-0500 Diastolic Blood Pressure NBP 47 1 MITCHELL MARY MD [facility] 12-25-2021 06:53-0500 Systolic Blood Pressure NBP 118 1 MITCHELL MARY MD [facility] 12-24-2021 23:39-0500 Mean blood pressure 67 mm[Hg] MITCHELL MARY MD [facility] 12-24-2021 23:10-0500 Body temperature 96.8 [degF] MITCHELL MARY MD [facility] 12-24-2021 19:33-0500 Respiratory rate 20 /min MITCHELL MARY MD [facility] 12-24-2021 18:43-0500 Diastolic blood pressure 54 mm[Hg] MITCHELL MARY MD [address] [place] [address] 12-24-2021 18:43-0500 Respiratory rate 20 /min MITCHELL MARY MD [address] [place] [address] 12-24-2021 18:43-0500 Systolic blood pressure 110 mm[Hg] MITCHELL MARY MD [address] [place] [address] 12-24-2021 14:39-0500 Diastolic blood pressure 58 mm[Hg] MITCHELL MARY MD [facility] 12-24-2021 14:39-0500 Systolic blood pressure 112 mm[Hg] MITCHELL MARY MD [facility] 12-24-2021 10:50-0500 Diastolic blood pressure 62 mm[Hg] MITCHELL MARY MD [address] [place] [address] 12-24-2021 10:50-0500 Systolic blood pressure 128 mm[Hg] MITCHELL MARY MD [facility] 12-24-2021 08:09-0500 Heart rate 76 /min MITCHELL MARY MD [facility] 12-24-2021 06:38-0500 Body temperature 97.52 [degF] MITCHELL MARY MD [facility] 12-24-2021 04:49-0500 Body temperature 97.34 [degF] MITCHELL MARY MD [facility] 12-24-2021 04:49-0500 Mean blood pressure 92 mm[Hg] MITCHELL MARY MD [facility] 12-24-2021 02:11-0500 Body height 172.7 cm MITCHELL MARY MD [facility] 12-24-2021 02:11-0500 Body weight 71.4 kg MITCHELL MARY MD [facility] 12-24-2021 02:11-0500 Body weight 23.94 kg/m2 MITCHELL MARY MD [facility] 12-24-2021 02:10-0500 Body weight 71.4 kg MITCHELL MARY MD [facility] 12-24-2021 01:58-0500 Mean blood pressure 116 mm[Hg] MITCHELL MARY MD [facility] 12-23-2021 23:33-0500 Diastolic blood pressure 65 mm[Hg] CATHY ALMA [facility] 12-23-2021 23:33-0500 Heart rate 73 /min CATHY NEWTONDANIELA [facility] 12-23-2021 23:33-0500 Respiratory rate 24 /min CATHY FROMMELT DO [facility] 12-23-2021 23:33-0500 Systolic blood pressure 129 mm[Hg] CATHY FROMMELT DO [facility] 12-23-2021 23:00-0500 Diastolic blood pressure 96 mm[Hg] CATHY FROMMELT DO [facility] 12-23-2021 23:00-0500 Heart rate 75 /min CATHY FROMMELT DO [facility] 12-23-2021 23:00-0500 Respiratory rate 17 /min CATHY FROMMELT DO [facility] 12-23-2021 23:00-0500 Systolic blood pressure 136 mm[Hg] CATHY FROMMELT DO [facility] 12-23-2021 22:36-0500 Diastolic blood pressure 71 mm[Hg] CATHY FROMMELT DO [facility] 12-23-2021 22:36-0500 Heart rate 76 /min CATHY FROMMELT DO [facility] 12-23-2021 22:36-0500 Respiratory rate 24 /min CATHY FROMMELT DO [facility] 12-23-2021 22:36-0500 Systolic blood pressure 137 mm[Hg] CATHY FROMMELT DO [facility] 12-23-2021 19:16-0500 Body temperature 98.06 [degF] CATHY MARQUEZ DO [facility] 12-23-2021 19:16-0500 Heart rate 77 /min [facility] 12-05-2021 11:12-0500 Heart rate 66 /min MARTHA PILLAI MD [facility] 12-05-2021 10:59-0500 Body temperature 97.88 [degF] MARTHA PILLAI MD [facility] 12-05-2021 10:59-0500 Diastolic blood pressure 52 mm[Hg] MARTHA PILLAI MD [facility] 12-05-2021 10:59-0500 Heart rate 66 /min MARTHA PILLAI MD [facility] 12-05-2021 10:59-0500 Mean blood pressure 67 mm[Hg] MARTHA PILLAI MD [facility] 12-05-2021 10:59-0500 Systolic blood pressure 98 mm[Hg] MARTHA PILLAI MD [facility] 12-05-2021 08:51-0500 Heart rate 68 /min MARTHA PILLAI MD [facility] 12-05-2021 08:07-0500 Body temperature 97.34 [degF] MARTHA PILLAI MD [facility] 12-05-2021 08:07-0500 Diastolic blood pressure 56 mm[Hg] MARTHA PILLAI MD [facility] 12-05-2021 08:07-0500 Heart rate 63 /min MARTHA PILLAI MD [facility] 12-05-2021 08:07-0500 Mean blood pressure 70 mm[Hg] MARTHA PILLAI MD [facility] 12-05-2021 08:07-0500 Reason For Taking VItal Signs MARTHA PILLAI MD [facility] 12-05-2021 08:07-0500 Respiratory rate 18 /min MARTHA PILLAI MD [facility] 12-05-2021 08:07-0500 Systolic blood pressure 98 mm[Hg] MARTHA PILLAI MD [facility] 12-05-2021 04:00-0500 Diastolic blood pressure 60 mm[Hg] MARTHA PILLAI MD [facility] 12-05-2021 04:00-0500 Mean blood pressure 71 mm[Hg] MARTHA PILLAI MD [facility] 12-05-2021 04:00-0500 Reason For Taking VItal Signs MARTHA PILLAI MD [facility] 12-05-2021 04:00-0500 Systolic blood pressure 94 mm[Hg] MARTHA PILLAI MD [facility] 12-04-2021 21:57-0500 Body temperature 98.24 [degF] MARTHA PILLAI MD [facility] 12-04-2021 21:57-0500 Reason For Taking VItal Signs MARTHA PILLAI MD [facility] 12-04-2021 21:57-0500 Respiratory rate 18 /min MARTHA PILLAI MD [facility] 12-04-2021 17:12-0500 Diastolic Blood Pressure NBP 44 1 MARTHA PILLAI MD [facility] 12-04-2021 17:12-0500 Mean blood pressure 60 mm[Hg] MARTHA PILLAI MD [facility] 12-04-2021 17:12-0500 Systolic Blood Pressure NBP 95 1 MARTHA PILLAI MD [facility] 12-04-2021 16:08-0500 Diastolic Blood Pressure NBP 47 1 MARTHA PILLAI MD [facility] 12-04-2021 16:08-0500 Systolic Blood Pressure NBP 100 1 MARTHA PILLAI MD [facility] 12-04-2021 02:01-0500 Diastolic Blood Pressure NBP 50 1 MARTHA PILLAI MD [facility] 12-04-2021 02:01-0500 Mean blood pressure 64 mm[Hg] MARTHA PILLAI MD [facility] 12-04-2021 02:01-0500 Systolic Blood Pressure NBP 96 1 MARTHA PILLAI MD [facility] 12-03-2021 19:51-0500 Mean blood pressure 62 mm[Hg] MARTHA PILLAI MD [facility] 12-03-2021 10:50-0500 Heart rate 67 /min MARTHA PILLAI MD [facility] 12-01-2021 13:15-0500 SaO2% (BldA) [Mass fraction] 93.7 % MARTHA PILLAI MD [facility] 11-29-2021 23:28-0500 Body temperature 97.7 [degF] MARTHA PILLAI MD [facility] 11-29-2021 11:04-0500 diastolic 40 mm[Hg] MARTHA PILLAI MD [facility] 11-29-2021 11:04-0500 systolic 82 mm[Hg] MARTHA PILLAI MD [facility] 11-29-2021 11:04-0500 systolic 80 mm[Hg] MARTHA PILLAI MD [facility] 11-26-2021 07:40-0500 SaO2% (BldA) [Mass fraction] 95.0 % MARTHA PILLAI MD [facility] 11-25-2021 04:06-0500 SaO2% (BldA) [Mass fraction] 95.9 % MARTHA PILLAI MD [facility] 11-22-2021 04:04-0500 Body height 162 cm MARTHA PILLAI MD [facility] 11-22-2021 04:04-0500 Body weight 76.8 kg MARTHA PILLAI MD [facility] 11-22-2021 04:04-0500 Body weight 29.26 kg/m2 MARTHA PILLAI MD [facility] 11-22-2021 02:05-0500 Diastolic blood pressure 55 mm[Hg] JAXON KUHN MD [facility] 11-22-2021 02:05-0500 Heart rate 74 /min JAXON KUHN MD [facility] 11-22-2021 02:05-0500 Respiratory rate 12 /min JAXON KUHN MD [facility] 11-22-2021 02:05-0500 Systolic blood pressure 88 mm[Hg] JAXON KUHN MD [facility] 11-22-2021 01:34-0500 Diastolic blood pressure 49 mm[Hg] JAXON KUHN MD [facility] 11-22-2021 01:34-0500 Systolic blood pressure 93 mm[Hg] JAXON KUHN MD [facility] 11-22-2021 01:30-0500 Heart rate 88 /min JAXON KUHN MD [facility] 11-22-2021 01:30-0500 Respiratory rate 16 /min JAXON KUHN MD [facility] 11-22-2021 01:15-0500 Diastolic blood pressure 58 mm[Hg] JAXON KUHN MD [facility] 11-22-2021 01:15-0500 Heart rate 101 /min JAXON KUHN MD [facility] 11-22-2021 01:15-0500 Respiratory rate 15 /min JAXON KUHN MD [facility] 11-22-2021 01:15-0500 Systolic blood pressure 100 mm[Hg] JAXON KUHN MD [facility] 11-22-2021 00:29-0500 SaO2% (BldA) [Mass fraction] 100 % JAXON KUHN MD [facility] 11-21-2021 21:58-0500 Body temperature 98.42 [degF] JAXON KUHN MD [facility] 11-21-2021 21:58-0500 Heart rate 130 /min JAXON KUHN MD [facility] Encounters Encounter Date Encounter Type Care Provider Facility Start: 09-03-2025 End: 09-03-2025 ambulatory Marci Jiménezon Facility:[facility] Start: 08-29-2025 End: 08-29-2025 Rosa ROWLEY -[facility] Work Phone: Start: 08-29-2025 End: 08-29-[address] Marci Baird John DO Work Phone: -[facility] Start: 08-14-2025 ambulatory Marci Baird John Facility:[facility] Start: 08-14-2025 Dr. Angelita doyle MD -[facility] Work Phone: Start: 08-07-2025 End: 08-07-2025 Telephone encounter Marcirajni Lopez Work Phone: [facility] Clinical Communication Comment on above: Med Refill Start: 08-06-2025 End: 08-06-2025 Dr. Angelita Garcia MD -[facility] Work Phone: Start: 08-06-2025 End: 08-06-[address] Marci Baird John DO Work Phone: -[facility] Start: 08-06-2025 End: 08-06-[address] Marci Lopez DO Work Phone: [facility] Start: 08-06-2025 End: 08-06-2025 Dr. Danish Tavarez MD -[facility] Work Phone: Start: 08-04-2025 End: 08-04-2025 ambulatory Anna Zarco RN [facility] Start: 08-04-2025 End: 08-04-2025 Patient encounter procedure Anna Zarco RN [facility] Start: 07-30-2025 End: 07-30-[address] Marci Baird John DO Work Phone: [facility] Start: 07-30-2025 End: 07-30-2025 Dr. Danish Tavarez MD -[facility] Work Phone: Start: 07-26-2025 End: 07-26-[address] Marci Lopez DO Work Phone: -[facility] Start: 07-26-2025 End: 07-26-2025 Brisa Jennings [facility] Work Phone: Start: 07-25-2025 End: 07-25-[address] Marci Lopez DO Work Phone: -[facility] Services[facility]rology Start: 07-25-2025 End: 07-25-2025 Dr. Saul Freitas DO -[facility] Work Phone: Start: 07-25-2025 End: 07-25-2025 ambulatory Marci Lopez Facility:[facility] Start: 07-20-2025 End: 07-20-2025 Rosa Rodriguez [place] -[facility] Work Phone: Start: 07-20-2025 End: 07-20-[address] Marci Lopez DO Work Phone: -[facility] Start: 07-19-2025 ambulatory Marci Lopez Facility:[facility] Start: 07-19-2025 Dr. Saul Freitas DO -[facility] Start: 07-16-2025 End: 07-16-[address] Marci Lopez DO Work Phone: -[facility] Start: 07-16-2025 End: 07-16-2025 Dr. Saul Freitas DO -[facility] Work Phone: Start: 07-16-2025 End: 07-16-2025 ambulatory Marci Lopez Facility:[facility] Start: 07-12-2025 End: 07-12-2025 Dr. Saul Freitas DO -[facility] Work Phone: Start: 07-12-2025 End: 07-12-[address] 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 Camacho Aguilar MD -[facility] Work Phone: Start: 07-03-2025 Dr. Camacho Aguilar MD -[facility] Work Phone: Start: 07-02-2025 Dr. Camacho Aguilar MD -[facility] Work Phone: Start: 07-01-2025 End: 07-04-2025 ambulatory [facility] Facility:[facility] Start: 07-01-2025 End: 07-04-[address] Marci Lopez DO Work Phone: -Medical Surgical 3 Start: 07-01-2025 End: 07-04-2025 Dr. Jose Royal DO -[facility] Work Phone: Start: 06-29-2025 End: 06-29-2025 ambulatory CECILIA OWENS Facility:[facility] Start: 06-19-2025 End: 06-19-2025 ambulatory Wesley Hayes [facility] Work Phone: [facility] Specialty Pharmacy Comment on above: SPP Neurology - Disc ontinuation Of Therapy ( [place] XR) Start: 06-16-2025 End: 06-16-2025 ambulatory Dannie Barros RN [facility] Clinical Communication Start: 06-16-2025 End: 06-16-2025 Patient encounter procedure Dannie Barros RN [facility] Clinical Communication Start: 06-11-2025 Dr. Ganesh Bradley and MD [facility] Work Phone: Start: 06-10-2025 Dr. Ganesh Bradley and MD [facility] Work Phone: Start: 06-09-2025 End: 06-09-2025 Telephone encounter Marci Lopez Work Phone: [facility] Clinical Communication Comment on above: Other [...] Physicians Work Phone: Start: 06-03-2025 Dr. Ben kowalski DO [facility] Work Phone: Start: 06-02-2025 Dr. Ben kowalski DO [facility] Work Phone: Start: 06-02-2025 End: 06-02-2025 Patient encounter procedure [facility]ail [facility] Clinical [facility] Start: 06-02-2025 End: 06-02-2025 Telephone encounter Marci Lopez Work Phone: [facility] Clinical Communication Comment on above: Care Coordination (P age ) Start: 06-02-2025 End: 06-02-2025 ambulatory Donna Vail [facility] Clinical [facility] Start: 06-02-2025 End: 06-11-2025 Evaluation and management of inpatient Dr. Marci Lopez DO Work Phone: -Medical Surgical 3 Start: 06-02-2025 End: 06-11-2025 Dr. Ben Johnson DO -Medical Surgical 3 Work Phone: Start: 06-01-2025 End: 06-01-2025 Subsequent hospital visit by physician Marci Lopez Work Phone: [facility] Radiology Comment on above: Chronic systolic (co ngestive) heart failure (HCC) Start: 06-01-2025 End: 08-31-2025 ambulatory MARCI JOHN [facility] Comment on above: Chronic systolic (co ngestive) heart failure (HCC) (Primary Dx) Start: 05-30-2025 End: 05-30-2025 Patient encounter procedure Rosa ROWLEY -[facility] Work Phone: Start: 05-30-2025 End: 05-30-2025 Rosa ROWLEY -[facility] Work Phone: Start: 05-30-2025 End: 05-30-[address] Marci Lopez DO Work Phone: -[facility] Start: 05-29-2025 End: 05-29-2025 Patient encounter procedure Kaykay [facility] Work Phone: Start: 05-29-2025 End: 05-29-2025 Kaykay [facility] Work Phone: Start: 05-29-2025 End: 05-29-[address] Marci Lopez DO Work Phone: -[facility] Start: 05-22-2025 End: 05-22-2025 Dr. Marci Lopez DO Work Phone: -Emergency Department Work Phone: Start: 05-22-2025 End: 05-22-2025 Emergency department patient visit Dr. Marci Lopez DO Work Phone: -Emergency Department Start: 05-22-2025 Dr. Angelita doyle MD -[facility] Work Phone: Start: 05-21-2025 End: 05-21-2025 Specialty Pharmacy Wesley Hayes [facility] Work Phone: [facility] Specialty Pharmacy Comment on above: SPP Neurology - Medi cation Refill (Austedo XR) Start: 05-03-2025 End: 05-03-[address] Marci Lopez DO Work Phone: [facility] Work Phone: Start: 05-03-2025 End: 05-03-[address] Danish Tavarez MD -[facility] Work Phone: Start: 05-03-2025 End: 05-03-2025 Dr. Danish Tavarez MD -[facility] Work Phone: Start: 04-25-2025 Non-patient / Non-visit Shan Rivero nd DO -[facility] Start: 04-25-2025 End: 04-25-2025 Admission to same day surgery center Shan Lockett DO -Endoscopy Work Phone: Start: 04-25-2025 End: 04-25-2025 Shan Lockett DO -Endoscopy Work Phone: Start: 04-25-2025 End: 04-25-[address] Marci Lopez DO Work Phone: [facility] Work Phone: Start: 04-23-2025 End: 04-23-2025 Specialty Pharmacy Wesley Hayes [facility] Work Phone: [facility] Specialty Pharmacy Comment on above: SPP Neurology - Medi cation Refill (Autedo ) Start: 04-20-2025 End: 05-03-2025 Evaluation and management of inpatient Dr. Alonso Marte MD -Transitional Care Unit Start: 04-20-2025 End: 05-03-2025 Dr. Alonso Marte MD -Transitional Care U nit Start: 04-20-2025 Non-patient / Non-visit Dr. Matthew FOWLER [facility] Work Phone: Start: 04-20-2025 Dr. Maximo Orosco DO [facility] Work Phone: Start: 04-19-2025 End: 04-20-2025 ambulatory Maxiom Orosco Facility:[facility] Start: 04-19-2025 End: 04-20-2025 Evaluation and management of inpatient Dr. Maximo Orosco DO -Medical Surgical 3 Work Phone: Start: 04-19-2025 End: 04-20-[address] Marci Lopez DO Work Phone: [facility] Work Phone: Start: 04-19-2025 End: 04-20-2025 Dr. Maximo Orosco DO -Medical Surgical 3 Work Phone: Start: 04-19-2025 End: 04-19-2025 Emergency department patient visit Dr. Marci Lopez DO Work Phone: -Emergency Department Work Phone: Start: 04-19-2025 End: 04-19-[address] Marci Lopez DO Work Phone: [facility] Work Phone: Start: 04-19-2025 End: 04-19-[address] Danish Tavarez MD -[facility] Work Phone: Start: 04-19-2025 End: 04-19-2025 Dr. Danish Tavarez MD -[facility] Work Phone: Start: 04-06-2025 End: 06-06-2025 Follow-up encounter Leyla Murphy MD Work Phone: Neurology Start: 04-04-2025 ambulatory LEYLA MURPHY Facilit y:[facility] Start: 04-04-2025 End: 04-04-2025 Subsequent hospital visit by physician [facility] (1.5t) Radiology Comment on above: Essential tremor [G2 5.0] Start: 04-02-2025 End: 04-02-2025 Subsequent hospital visit by physician [facility] Work Phone: Radiology Comment on above: Presence of cardiac pacemaker [Z95.0] Start: 04-02-2025 End: 04-02-2025 ambulatory LEYLA MURPHY Facility:[facility] Start: 03-28-2025 End: 03-28-2025 ambulatory Trish Lyle [facility] Comment on above: [place]edo XR approved Start: 03-28-2025 End: 03-28-2025 E-mail encounter from caregiver Trish Dariela [facility] Start: 03-28-2025 End: 03-28-2025 Telephone [...] HOSP Start: 02-28-2025 End: 02-28-2025 ambulatory Wesley Viieraz [facility] Work Phone: [facility] Specialty Pharmacy Start: 02-28-2025 End: 02-28-2025 Patient encounter procedure Wesley Natalia [facility] Work Phone: [facility] Specialty Pharmacy Comment on above: SPP Neurology - Lina tment Referral (Ingrezza); Insurance Authorization ([place] Submission Pending) Start: 02-27-2025 End: 02-27-2025 ambulatory LEYLA MURPHY Facility:[facility] Start: 02-27-2025 End: 02-27-2025 Office outpatient visit 40 minutes Leyla Murphy MD Work Phone: Neurology Comment on above: Essential tremor (Pr imary Dx); Dyskinesia, tardive Start: 02-27-2025 End: 02-27-2025 Telephone encounter Leyla Murphy MD Work Phone: Neurology Comment on above: Appointment (MRI Bra in WO IVCON) Start: 02-14-2025 End: 02-14-2025 Patient encounter procedure Rosa ROWLEY -[facility] Work Phone: Start: 02-14-2025 End: 02-14-2025 Rosa ROWLEY -[facility] Work Phone: Start: 02-14-2025 End: 02-14-2025 ambulatory Rosa Rodriguez Facility:[facility] Start: 02-13-2025 End: 02-13-2025 Patient encounter procedure Mayte COHEN -[facility] Work Phone: Start: 02-13-2025 End: 02-13-2025 Mayte COHEN -[facility] Work Phone: Start: 02-13-2025 End: 02-13-2025 ambulatory [facility] Facility:[facility] Start: 01-29-2025 End: 01-29-2025 Dr. Danish Tavarez MD -[facility] Work Phone: Start: 01-28-2025 End: 01-29-2025 ambulatory Sari [facility] Clinical [facility] Start: 01-28-2025 End: 01-29-2025 Patient encounter procedure Sari Parra RN [facility] Clinical Communication Start: 01-23-2025 End: 01-23-[address] Luigi Tinoco MD -[facility] Work Phone: Start: 01-23-2025 End: 01-23-2025 Dr. Luigi Tinoco MD -[facility] Work Phone: Start: 01-23-2025 End: 01-23-2025 ambulatory [facility] Facility:[facility] Start: 01-22-2025 ambulatory [facility] Facility:[facility] Start: 01-22-[address] Kristen Tinoco MD -[facility] Start: 01-22-2025 Dr. Luigi Tinoco MD -[facility] Start: 01-19-2025 End: 01-19-2025 Telephone encounter Leyla Murphy MD Work Phone: Neurology Comment on above: Appointment (Time Ch kamilah: 05/15/2025) Start: 01-19-2025 ambulatory [facility] Facility:[id number] Start: 01-19-2025 End: 01-19-2025 Subsequent hospital visit by physician [facility] Work Phone: [facility] Comment on above: Solitary pulmonary n odule [R91.1] Start: 01-18-2025 End: 01-18-2025 Patient encounter procedure Kaykay ROWLEY -[facility] Work Phone: Start: 01-18-2025 End: 01-18-2025 Kaykay Pena PA -[facility] Work Phone: Start: 01-18-2025 End: 01-18-2025 ambulatory Marci Baird John Facility:[facility] Start: 12-22-2024 ambulatory [facility] Facility:[facility] Start: 12-22-2024 End: 12-22-2024 Patient encounter procedure Marci Lopez -[facility] Work Phone: Start: 12-22-2024 End: 12-22-2024 ambulatory [facility] Facility:[facility] Start: 12-19-2024 End: 12-19-2024 Patient encounter procedure Dipti ROWLEY -[facility] Work Phone: Start: 12-19-2024 End: 12-19-2024 ambulatory [facility] Facility:[facility] Start: 12-15-2024 End: 12-15-2024 Patient encounter procedure Rosa ROWLEY -Laboratory, Specimen Work Phone: Start: 12-15-2024 End: 12-15-2024 ambulatory [facility] Facility:[facility] Start: 12-13-2024 End: 12-13-2024 Subsequent hospital visit by physician Marci Pintosdon Work Phone: [facility] Pulm Function Test Comment on above: Other forms of dyspn ea Start: 12-13-2024 End: 12-13-2024 ambulatory [facility] Start: 12-12-2024 End: 12-12-2024 Patient encounter procedure Rosa ROWLEY -[facility] Work Phone: Start: 12-12-2024 End: 12-12-20[facility] Start: 11-28-2024 End: 11-28-[address] Adrienne Christine MD -[facility] Work Phone: Start: 11-28-2024 End: 11-28-2024 ambulatory Marci Lopez Facility:[facility] Start: 11-24-2024 End: 11-24-2024 Telephone encounter Marci Lopez Work Phone: [facility] Clinical Communication Comment on above: Other (Discuss Apppo intment) Start: 11-23-2024 End: 11-23-2024 Patient encounter procedure Rosa ROWLEY -[facility] Work Phone: Start: 11-23-2024 End: 11-23-2024 ambulatory Marci Lopez Facility:[facility] Start: 11-18-2024 End: 11-18-2024 Emergency department patient visit Dr. Jose Jaime DO -Emergency Department Work Phone: Start: 11-16-2024 End: 11-16-2024 Telephone encounter Marci Lopez Work Phone: [facility] Comment on above: Appointment Request Start: 11-14-2024 End: 11-14-2024 ambulatory Marci Lopez Facility:[facility] Start: 11-14-2024 Registered Recurring Marci Lopez DO -Physical Therapy Work Phone: Start: 11-13-2024 End: 11-14-2024 Telephone encounter Ghazala Gusman MD Work Phone: Rehab Medicine Comment on above: Requesting help with spasticity medication. Start: 11-10-2024 End: 11-10-2024 Subsequent hospital visit by physician Pina Isidro Work Phone: [facility] Comment on above: Dizziness and giddin ess Start: 11-10-2024 End: 11-10-2024 ambulatory PINA ISIDRO [facility] Start: 11-07-2024 End: 02-06-2025 Transcribe Orders Pina Isidro RN [facility] Central Scheduling Comment on above: Dizziness and giddin ess (Primary Dx) Start: 11-02-2024 End: 11-02-2024 Emergency department patient visit Marci [facility] Facility:[facility] Start: 10-30-2024 End: 10-30-2024 [facility] Start: 10-17-2024 End: 10-17-2024 [facility] Start: 10-13-2024 End: 01-12-2025 Transcribe Orders Marci Lopez Work Phone: [facility] Comment on above: Other forms of dyspn ea (Primary Dx) Start: 10-06-2024 End: 10-06-2024 Telephone encounter Marci Lopez Work Phone: [facility] Clinical Communication Comment on above: Other Start: 09-14-2024 End: 09-14-2024 [facility] Start: 09-09-2024 End: 09-09-2024 Emergency department patient visit [facility] Facility:[facility] Start: 08-13-2024 End: 08-13-2024 Patient encounter procedure Roxanne Boo RT(R) Nuclear Medicine Start: 08-13-2024 End: 08-13-2024 ambulatory Roxanne Boo RT(R) Nuclear Medicine Comment on above: Radiology NM Start: 08-13-2024 End: 08-13-2024 Subsequent [facility] Work [facility]: Nuclear Medicine Comment on above: 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] Start: 08-05-2024 End: 08-05-2024 ambulatory Dulce Maria Gibson RN [facility] Clinical Communication Start: 08-05-2024 End: 08-05-2024 Patient encounter procedure Dulce Maria Gibson RN [facility] Clinical [facility] Start: 08-04-2024 End: 08-04-2024 ambulatory Anna Zarco RN [facility] Clinical [facility] Start: 08-04-2024 End: 08-04-2024 Patient encounter procedure Anna Zarco RN [facility] Clinical [facility] Start: 07-21-2024 ambulatory MARTHA FREYA Facility :[id number] Start: 07-21-2024 End: 07-21-2024 Subsequent hospital visit by physician [facility] Work Phone: RADIO CT SCAN [facility] Comment on above: Solitary pulmonary n odule [R91.1] Start: 07-20-2024 End: 10-19-2024 Transcribe Orders Marcirajni Lopez Work Phone: [facility] Outaptient Lab Comment on above: Chronic kidney disea se, stage 3a (HCC) (Primary Dx) Start: 07-11-2024 End: 07-11-2024 ambulatory [facility] Deluca [facility] Start: 07-11-2024 End: 07-11-2024 Patient encounter procedure Bill Deluca [facility] Start: 07-11-2024 End: 07-11-2024 Telephone encounter Marci John Work Phone: [employer] Clinical Communication Comment on above: Other (Needs call jaci lora from office) Start: 07-10-2024 End: 10-09-2024 Subsequent hospital visit by physician Marci Lopez Work Phone: [facility] Radiology Comment on above: Other constipation Other constipation ( Primary Dx) Start: 06-28-2024 End: 06-28-2024 Telephone encounter Rick Gould CNP Work Phone: [facility] Clinical Communication Comment on above: Other ([place] [facility] ) Start: 05-19-2024 End: 05-19-2024 ambulatory ADRIENNE GODWINTON FOWLER Facility:B Start: 05-19-2024 End: 05-19-[address] JAC CHRISTENSEN MD [facility] Start: 05-17-2024 End: 05-17-2024 Patient encounter procedure Ghazala Gusman MD Work Phone: Rehab Medicine Comment on above: History of stroke (P rimary Dx); Spasticity Start: 04-07-2024 End: 04-07-2024 Patient encounter procedure ADRIENNE GOWDINTON FOWLER [facility] Start: 04-07-2024 End: 04-07-2024 ambulatory ADRIENNE BYERS DO Facility:B Start: 02-29-2024 End: 03-15-2024 Evaluation and management of inpatient Dr. [facility]rienne [facility]ers [facility] Start: 02-29-2024 Non-patient / Non-visit Dr. Lauren Byers Work Phone: [facility] Work Phone: Start: 02-28-2024 Non-patient / Non-visit Dr. Lauren Byers Work Phone: [facility] Start: 02-28-2024 Non-patient / Non-visit Dr. Lauren Byers Work Phone: [facility] Work Phone: Start: 02-27-2024 Non-patient / Non-visit [facility]. Lauren Byers [facility] Start: 02-27-2024 Non-patient / Non-visit Dr. Lauren Byers Work Phone: [facility] Work Phone: Start: 02-26-2024 Non-patient / Non-visit Dr. Lauren Byers Work Phone: [facility] Start: 02-26-2024 Non-patient / Non-visit Dr. Lauren Byers Work Phone: [facility] Work Phone: Start: 02-25-2024 Non-patient / Non-visit [facility] Start: 02-25-2024 Non-patient / Non-visit Dr. Lauren Byers Work Phone: [facility] Work Phone: Start: 02-24-2024 Non-patient / Non-visit Dr. Lauren Byers Work Phone: [facility] Start: 02-24-2024 Non-patient / Non-visit Dr. Lauren Byers Work Phone: [facility] Work Phone: Start: 02-23-2024 Non-patient / Non-visit Dr. Lauren Byers Work Phone: [facility] Start: 02-23-2024 Non-patient / Non-visit Dr. Lauren Byers Work Phone: [facility] Work Phone: Start: 02-22-2024 Non-patient / Non-visit Dr. Lauren Byers Work Phone: [facility] Start: 02-22-2024 Non-patient / Non-visit Dr. Lauren Byers Work Phone: [facility] Work Phone: Start: 02-22-2024 End: 02-22-2024 Non-patient / Non-visit Dr. Adrienne Byers Work Phone: [facility] Work Phone: Start: 02-21-2024 Non-patient / Non-visit Dr. Lauren Byers Work Phone: [facility] Work Phone: Start: 02-21-2024 End: 02-29-2024 Evaluation and management of inpatient Dr. Adrienne Byers Work Phone: [facility]-Medical Surgical 3 Work Phone: Start: 02-19-2024 End: 02-19-2024 Emergency department patient visit [facility] Work Phone: Start: 02-14-2024 End: 02-14-2024 ambulatory ADRIENNE BYERS DO Facility:B Start: 12-27-2023 End: 12-27-2023 ambulatory ADRIENNE BYERS DO Facility:B Start: 12-27-2023 End: 12-27-2023 Patient encounter procedure ADRIENNE ZEESHAN [facility] Start: 12-08-2023 End: 12-08-2023 Emergency department patient visit Dr. Adrienne Byers Work Phone: [facility]-Emergency Department Work Phone: Start: 10-28-2023 End: 01-04-2024 ambulatory ADRIENNE BYERS DO Facility:B Start: 10-25-2023 End: 10-25-2023 ambulatory ADRIENNE BYERS DO Facility:B Start: 10-25-2023 End: 10-25-[address] JCA CHRISTENSEN MD [facility] Start: 10-22-2023 ambulatory Sherif Ramirez MD Work Phone: [facility] Comment on above: Occupational Therapy Start: 10-20-2023 End: 10-20-2023 ambulatory Sherif Ramirez MD Work Phone: [facility] Comment on above: Essential tremor (Pr imary Dx); Tremor of left hand Start: 10-20-2023 End: 10-20-2023 Telemedicine consultation with patient Sherif Ramirez MD Work Phone: [facility] Start: 10-12-2023 Non-patient / Non-visit Dr. Lauren Byers Work Phone: [facility] Work Phone: Start: 10-11-2023 Non-patient / Non-visit Dr. Lauren Byers Work Phone: [facility] Work Phone: Start: 10-10-2023 Non-patient / Non-visit Dr. Lauren Byers Work Phone: [facility] Work Phone: Start: 10-09-2023 Non-patient / Non-visit Dr. Lauren Byers Work Phone: [facility] Work Phone: Start: 10-08-2023 Non-patient / Non-visit Dr. Lauren Byers Work Phone: [facility] Work Phone: Start: 10-07-2023 End: 10-12-2023 Evaluation and management of inpatient Dr. Adrienne Byers [facility] Work Phone: Start: 10-07-2023 End: 10-12-[address] Adrienne Byers Work Phone: [facility] Work Phone: Start: 10-07-2023 Non-patient / Non-visit Dr. Lauren Byers Work Phone: [facility] Work Phone: Start: 10-01-2023 End: 10-07-2023 Evaluation and management of inpatient Dr. Adrienne Byers [facility] Start: 10-01-2023 Non-patient / Non-visit Dr. Lauren Byers Work Phone: [facility] Work Phone: Start: 09-30-2023 Non-patient / Non-visit Dr. Lauren Byers Work Phone: [facility] Work Phone: Start: 09-30-2023 End: 09-30-[address] Adrienne Byers Work Phone: [facility] Work Phone: Start: 09-29-2023 Non-patient / Non-visit Dr. Lauren Byers Work Phone: [facility] Work Phone: Start: 09-29-2023 Non-patient / Non-visit Dr. Lauren Byers Work Phone: [facility] Start: 09-29-2023 Non-patient / Non-visit Dr. 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] Start: 09-21-2023 End: 09-21-2023 Subsequent hospital visit by physician [facility] Start: 09-07-2023 End: 09-07-2023 ambulatory ADRIENNE GAXIOLA Facility:B Start: 09-07-2023 End: 09-07-2023 Patient encounter procedure ADRIENNE GODWINTON FOWLER [facility] Start: 08-27-2023 ambulatory ADRIENNE GODWINTON FOWLER Facili ty:B Start: 08-26-2023 End: 08-26-2023 ambulatory ADRIENNE GODWINTON FOWLER Facility:B Start: 08-18-2023 End: 08-18-2023 ambulatory ADRIENNE CONNELLYKO Facility:B Start: 08-18-2023 End: 08-18-2023 SAME DAY STAY JAXON KUHN MD [facility] Start: 08-16-2023 ambulatory ADRIENNE BYERS DO Facili ty:B Start: 08-11-2023 End: 08-11-2023 ambulatory ADRIENNE BYERS DO Facility:B Start: 08-11-2023 End: 08-11-2023 SAME DAY STAY JAXON KUHN MD [facility] Start: 08-07-2023 End: 08-07-2023 ambulatory ADRIENNE BYERS DO Facility:B Start: 08-04-2023 End: 08-04-2023 Emergency department patient visit JAXON KUHN MD [facility] Start: 07-21-2023 Refill Sherif Ramirez MD Work Phone: [facility] Comment on above: Refill Request Start: 07-13-2023 End: 07-13-2023 ambulatory ADRIENNE BYERS DO Facility:B Start: 07-01-2023 End: 07-01-2023 Office outpatient visit 25 minutes Sherif Ramirez MD Work Phone: [facility] Comment on above: 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); Parkinsonism, unspecified Parkinsonism type (HCC) Start: 06-23-2023 ambulatory ADRIENNE BYERS DO Facili ty:B Start: 06-09-2023 End: 06-09-[address] JAC CHRISTENSEN MD Facility:B Start: 06-09-2023 End: 06-09-[address] JAC CHRISTENSEN MD [facility] Start: 05-17-2023 End: 05-17-2023 Patient encounter procedure ADRIENNE BYERS DO [facility] Start: 05-17-2023 Telephone encounter Ghazala davis [...] Patient encounter procedure DR JAC CHRISTENSEN MD [facility] Start: 11-30-2022 End: 12-04-2022 Outreach Lab ADRIENNE BYERS DO [facility] Start: 11-27-2022 End: 11-27-2022 Patient encounter procedure ADRIENNE GODWINTON DO [facility] Start: 11-02-2022 End: 11-06-2022 Outreach Lab ADRIENNE BYERS DO [facility] Start: 10-12-2022 Telephone encounter Ghazala davis MD Work Phone: Rehab Medicine Comment on above: Medication question Start: 10-12-2022 End: 10-12-2022 ambulatory Sherif Ramirez MD Work Phone: [facility] Comment on above: Tremor of left hand Start: 10-12-2022 End: 10-12-2022 Telemedicine consultation with patient Sherif Ramirez MD Work Phone: [facility] Start: 10-05-2022 End: 10-05-[address] LARY WHEAT DO [facility] Start: 09-09-2022 End: 09-09-[address] JAC CHRISTENSEN MD [facility] Start: 08-19-2022 End: 08-20-2022 Emergency department patient visit DR AKIN SALGUERO DO [facility] Start: 08-10-2022 End: 08-10-2022 ambulatory Sherif Ramirez MD Work Phone: [facility] Comment on above: 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); Parkinson disease (HCC); Nocturnal muscle cramp Start: 08-10-2022 End: 08-10-2022 Telemedicine consultation with patient Sherif Ramirez MD Work Phone: [facility] Start: 07-20-2022 End: 07-20-[address] JAC CHRISTENSEN MD [facility] Start: 07-14-2022 End: 01-03-2023 Lab-Standing Order QIANA BAKER MD [facility] Start: 07-08-2022 End: 10-19-2022 Cardiac Rehab MITCHELL MARY MD [facility] Start: 07-01-2022 End: 07-01-[address] JAC CHRISTENSEN MD [facility] Start: 06-29-2022 ambulatory Sherif Ramirez MD Work Phone: [facility] Comment on above: Parkinson Disease pr escription Start: 06-23-2022 End: 06-23-2022 Patient encounter procedure Sherif Ramirez MD Work Phone: [facility] Comment on above: Parkinsonism, unspec ified Parkinsonism type (HCC) (Primary Dx); Tremor of left hand Start: 06-09-2022 End: 06-09-[address] JAC CHRISTENSEN MD [facility] Start: 06-04-2022 End: 06-04-2022 Patient encounter procedure Ghazala Gusman MD Work Phone: Spine Medicine Comment on above: Tremor of left hand (Primary Dx) Start: 06-01-2022 End: 06-01-[address] LARY WHEAT DO [facility] Start: 05-22-2022 End: 05-22-2022 Emergency department patient visit NOREEN HICKS MD [facility] Start: 05-01-2022 Refill Ghazala Gusman MD Work Phone: Rehab Medicine Comment on above: Refill Request Start: 05-01-2022 End: 05-01-[address] JAC CHRISTENSEN MD [facility] Start: 04-25-2022 End: 04-26-2022 Emergency department patient visit NATAN ARRIETA DO [facility] Start: 04-03-2022 End: 04-03-[address] JAC CHRISTENSEN MD [facility] Start: 04-02-2022 End: 04-02-[address] JAC CHRISTENSEN MD [facility] Start: 03-24-2022 End: 03-24-[address] JAC CHRISTENSEN MD [facility] Start: 03-20-2022 End: 03-20-[address] JAC CHRISTENSEN MD [facility] Start: 03-17-2022 End: 03-17-[address] JAC CHRISTENSEN MD [facility] Start: 03-06-2022 End: 03-06-[address] JAC CHRISTENSEN MD [facility] Start: 03-03-2022 End: 03-03-2022 Patient encounter procedure HARISH GIFFORD CUSTOMER ADVOCACY MANAGER-FOUNDATION RELATIONS MANAGER [facility] Start: 02-24-2022 End: 02-24-[address] JAC CHRISTENSEN MD [facility] Start: 02-05-2022 Telephone encounter Ghazala davis MD Work Phone: Spine Medicine Comment on above: Question (medication ) Start: 02-04-2022 End: 02-04-2022 Patient encounter procedure REI ALFONSO CUSTOMER ADVOCACY MANAGER-FOUNDATION RELATIONS MANAGER [facility] Start: 01-03-2022 End: 01-03-2022 Patient encounter procedure REI ALFONSO CUSTOMER ADVOCACY MANAGER-FOUNDATION RELATIONS MANAGER [facility] Start: 12-29-2021 End: 12-29-[address] BHASKAR LEE MD [facility] Start: 12-24-2021 End: 12-25-2021 Evaluation and management of inpatient MITCHELL MARY MD [facility] Start: 12-23-2021 End: 12-24-2021 Emergency department patient visit CATHY MARQUEZ DO [facility] Start: 11-22-2021 End: 12-05-2021 Evaluation and management of inpatient CHRISTINA MARCIAL MD [facility] Start: 11-21-2021 End: 11-22-2021 Emergency department patient visit JAXON KUHN MD [facility] Start: 11-06-2021 End: 11-06-[address] LARY WHEAT DO [facility] Start: 10-08-2021 End: 10-08-[address] LARY WHEAT DO [facility] Start: 09-26-2021 End: 09-26-[address] LARY WHEAT DO [facility] Procedures Date Procedure Procedure Detail Performing Clinician Start: 07-09-2025 Mean corpuscular hemoglobin concentration determination Dr. Marci Lopez DO Work Phone: Start: 07-09-2025 Platelet mean volume determination Dr. Jose Lopez DO Work Phone: Start: 07-04-2025 Blood count smear mcrscp w/mnl difrntl wbc count Dr. Marci Lopez DO Work Phone: Start: 07-04-2025 Mean corpuscular hemoglobin concentration determination Dr. Marci Lopez DO Work Phone: Start: 07-04-[address] Marci Lopez DO Work Phone: Start: 07-04-2025 Nucleated red blood cell count procedure Dr. Marci Lopez DO Work Phone: Start: 07-04-2025 Platelet mean volume determination Dr. Jose Lopez DO Work Phone: Start: 07-03-[address] Saranya Lopez DO Work Phone: Start: 07-01-2025 CT angiography of chest with contrast Dr. Marci Lopez DO Work Phone: Start: 07-01-2025 Plain chest X-ray Dr. Marci Lopez DO Work Phone: Start: 07-01-2025 Blood count smear mcrscp w/mnl difrntl wbc count Dr. Marci Lopez DO Work Phone: Start: 07-01-2025 D-dimer assay, quantitative Dr. Marci beard DO Work Phone: Start: 07-01-[address] Saranya Lopez DO Work Phone: Start: 07-01-2025 Mean corpuscular hemoglobin concentration determination Dr. Marci Lopez DO Work Phone: Start: 07-01-2025 Nucleated red blood cell count procedure Dr. Marci Lopez DO Work Phone: Start: 07-01-2025 Platelet mean volume determination Dr. Jose Lopez DO Work Phone: Start: 06-11-2025 Blood count smear mcrscp w/mnl difrntl wbc count Dr. Marci Lopez DO Work Phone: Start: 06-11-[address] Saranya Lopez DO Work Phone: Start: 06-11-2025 Mean corpuscular hemoglobin concentration determination Dr. Marci Lopez DO Work Phone: Start: 06-11-[address] Marci Lopez DO Work Phone: [...] Marci Lopez DO Work Phone: Start: 06-02-[address] Marci osorio DO Work Phone: Start: 06-02-2025 CT of [...] Marci Lopez DO Work Phone: Start: 05-22-[address] Marci Lopez DO Work Phone: [...] Marci Lopez DO Work Phone: Start: 05-01-[address] Marci Lopez DO Work Phone: Start: 05-01-2025 Nucleated red blood cell count procedure Dr. Marci Lopez DO Work Phone: Start: 05-01-2025 Platelet mean volume determination Dr. Jose Lopez DO Work Phone: Start: 04-25-[address] Marci Lopez DO Work Phone: Start: 04-22-[address] Marci Santamaria n DO Work Phone: Start: 04-22-2025 Total cholesterol:HDL ratio measurement Dr. Marci Lopez DO Work Phone: Start: 04-22-[address] Marci soto DO Work Phone: Start: 04-21-2025 Blood count [...] Start: 03-10-2025 Urine microscopy: red cells Dr. Maric beard DO Work Phone: Start: 03-10-2025 Urnls [...] DO Comment on above: Implantation Biventricular ICD DEALER SALES REP-D 04/23 Dr Ashley Evans Generator [employer] G247 VIGILANT X4 DEALER SALES REP-D Serial [id number] RA Lead [employer] 7840 Ingevity + MRI Serial [id number] 05/12/2022 RV Lead [employer] 0675 Stevenson 4 Front Serial [id number] 05/12/2022 LV Lead [employer] 4674 Acuity X4 Spiral Short Serial [id number] 05/12/2022 Start: 04-21-[address] [facility] [employer] Comment on above: Dilated left ventricle with global hypok inesia, relative septal wall hypokinesia/akinesia, and mild lateral free wall dyskinesia associated with curvilinear mesocardial LGE of the inferoseptal wall, suggesting nonischemic dilated cardiomyopathy. diminished LVEF 31.2% Start: 03-30-2022 [facility] [employer] Comment on above: EF 35-40%. Start: 12-03-2021 [...] The lesion presents an ACC/AHA type C "high risk" lesion for intervention. Stent placement was performed, [...] MD Comment on above: Implantation Biventricular ICD DEALER SALES REP-D 04/23 Dr Ashley Evans Generator [employer] G247 VIGILANT X4 DEALER SALES REP-D Serial [id number] RA Lead [employer] 7840 Ingevity + MRI Serial [id number] 05/12/2022 RV Lead [employer] 0675 Stevenson 4 Front Serial [id number] 05/12/2022 LV Lead [employer] 4674 Acuity X4 Spiral Short Serial [id number] 05/12/2022 Ophthalmic surgery ( qualifier value) DR LRAY WHEAT DO Comment on above: CORRECTED CROSS EYES A CHILD Tonsillectomy DR LARY RUIZ DO Comment on above: A CHILD Plan of Treatment Date Care Activity Detail Author Start: 2028 RSV Vaccine (1 - 1-d ose 75+ series) RSV Vaccine (1 - -dose 75+ series) [facility] Start: 07-20-2027 Diabetes Screening Diabetes Screenin g [facility] Start: 12-31-2025 End: 12-31-2025 Follow-up encounter 12/31/2025 11:30 AM [facility] [address] [facility] [address] [place] [phone] Leyla Murphy MD [address] [facility] [address] [place] [address] follow up on meds for tardive Neurology Comment on above: follow up on meds fo r tardive Start: 07-25-2025 Measurement of respi ratory function [facility] Start: 07-23-2025 COVID-19 Vaccine ( season) COVID-19 Vaccine ( season) [facility] Start: 07-23-2025 Influenza vaccination [facility] Start: 07-20-2025 Creatinine measurement Creatinine Le jana [facility] Start: 07-20-2025 Diabetes: Estimated Glomerular Filtration Rate for [facility] Diabetes: Estimated Glomerular Filtration Rate for [facility] Start: 07-20-2025 Potassium measurement Potassium Leve l [facility] Start: 07-04-2025 Patient discharge [facility] Start: 07-01-2025 Following clinical p athway protocol [facility] Start: 07-01-2025 Assessment of risk o f venous thromboembolism [facility] Start: 07-01-2025 Inhalation therapy procedure [facility] Start: 07-01-2025 Insertion of cathete r into peripheral vein [facility] Start: 07-01-2025 Patient referral to dietitian [facility] Start: 07-01-2025 Providing care accor ding to standard [facility] Start: 07-01-2025 Provision of activit y privileges [facility] Start: 07-01-2025 Referral for physica l therapy [facility] Start: 07-01-2025 Referral to occupati onal therapist [facility] Start: 07-01-2025 Referral to service [facility] Start: 07-01-2025 [facility] Start: 07-01-2025 Hospital admission, emergency, from emergency room, medical nature [facility] Start: 07-01-2025 Verification routine [facility] Start: 07-01-2025 Admission procedure [facility] Start: 07-01-2025 [facility] Start: 07-01-2025 Patient referral to dietitian [facility] Start: 06-29-2025 End: 06-29-2025 Patient encounter procedure 06/29/2025 11:00 AM EDT Office Visit Neurology [address] [phone] Cecilia Owens, DAYNE.FOUNDATION RELATIONS MANAGER [address] [facility] [place] [address] FOLLOW UP Neurology Comment on above: FOLLOW UP Start: 06-19-2025 End: 06-19-2025 Specialty Pharmacy 06/19/2025 7:45 AM EDT Specialty Pharmacy [facility] [address] [place], [place] [id number] [place] [address] Pharmacist, [facility] [address] [place] [address] [place] [address] Refill - [facility] - [facility] Comment on above: Refill - [facility] - Start: 06-11-2025 Referral to service [facility] Start: 06-11-2025 Patient discharge [facility] Start: 06-07-2025 End: 06-07-2025 Patient encounter procedure 06/07/2025 10:00 AM EDT Office Visit Neurology [address] [phone] Leyla Murphy MD [address] [phone] 3 month follow up - 60 minutes per [facility] Neu[facility] Comment on above: 3 month follow up - 60 minutes per [facility] Start: 06-06-2025 Referral for physica l therapy [facility] Start: 06-06-2025 Referral to occupati onal therapist [facility] Start: 06-06-2025 Referral to service [facility] Start: 06-06-2025 Speech therapy assessment [facility] Start: 06-06-2025 Referral to gastroenterology service [facility] Start: 06-06-2025 Consultation [facility] Start: 06-04-2025 [facility] Start: 06-03-2025 Following clinical p athway protocol [facility] Start: 06-02-2025 Following clinical p athway protocol [facility] Start: 06-02-2025 Ambulation without limitation [facility] Start: 06-02-2025 Assessment of risk o f venous thromboembolism [facility] Start: 06-02-2025 Catheterization of vein [facility] Start: 06-02-2025 Inhalation therapy procedure [facility] Start: 06-02-2025 Insertion of cathete r into peripheral vein [facility] Start: 06-02-2025 Providing care accor ding to standard [facility] Start: 06-02-2025 [facility] Start: 06-02-2025 Verification routine [facility] Start: 06-02-2025 Admission procedure [facility] Start: 06-02-2025 Hospital admission, emergency, from emergency room, medical nature [facility] Start: 06-02-2025 Taking nasal swab [facility] Start: 06-02-2025 Bacteria identified in Sputum by Culture [facility] Start: 06-02-2025 End: 06-02-2025 [facility] Start: 05-23-2025 End: 05-23-2025 Specialty Pharmacy 05/23/2025 7:45 AM EDT Specialty Pharmacy [facility] [address] [place] [address] [id number] [place] [address] Pharmacist, [facility] [address] [place], [place] [id number] Refill - [facility] - No Answer/WAM 05/21 [facility] Comment on above: Refill - [facility] - N o Answer/WAM 05/21 Start: 05-22-2025 End: 05-22-2025 [facility] Start: 05-21-2025 End: 05-21-2025 Specialty Pharmacy 05/21/2025 8:00 AM EDT Specialty Pharmacy [facility] [address] [place] [address]100 [place] [address] [facility]ist, [facility] [address] [place] [address] [place] [address] Refill - [facility] - [facility] Comment on above: Refill - [facility] - Start: 05-15-2025 End: 05-15-2025 Patient encounter procedure 05/15/2025 4:00 PM EDT Office Visit Neurology [address] [place] [phone] Leyla Murphy MD [address] [place] [phone] NEW PATIENT (previous patient of Dr. Ramirez) - Essential tremors Neurology Comment on above: NEW PATIENT (previou s patient of Dr. Ramirez) - Essential tremors Start: 05-04-2025 Development of care plan [facility] Start: 05-03-2025 [facility] Start: 05-03-2025 Patient discharge [facility] Start: 05-02-2025 [facility] Start: 05-02-2025 Speech therapy management [facility] Start: 04-27-2025 [facility] Start: 04-25-2025 Egd transoral biopsy single/multiple [facility] Start: 04-25-2025 Patient discharge [facility] Start: 04-24-2025 Preparation of bowel for procedure [facility] Start: 04-24-2025 [facility] Start: 04-24-2025 Speech therapy management [facility] Start: 04-24-2025 Speech therapy assessment [facility] Start: 04-24-2025 Verification routine [facility] Start: 04-23-2025 [facility] Start: 04-23-2025 End: 04-23-2025 Specialty Pharmacy 04/23/2025 7:00 AM EDT Specialty Pharmacy [facility] [address] [place] [address] [id number] [place] [address] [facility]ist, [facility] [address] [facility] [place] [address] Refill [facility] Comment on above: Refill [facility] Start: 04-22-2025 [facility] Start: 04-21-2025 Development of care plan [facility] Start: 04-21-2025 Developing a treatme nt plan [facility] Start: 04-20-2025 Admission procedure [facility] Start: 04-20-2025 Following clinical p athway protocol [facility] Start: 04-20-2025 Introduction of urin dl catheter [facility] Start: 04-20-2025 Measuring intake and output [facility] Start: 04-20-2025 Patient referral to dietitian [facility] Start: 04-20-2025 Referral for physica l therapy [facility] Start: 04-20-2025 Referral to occupati onal therapist [facility] Start: 04-20-2025 Referral to service [facility] Start: 04-20-2025 Vital signs measurements [facility] Start: 04-20-2025 End: 04-20-2025 [facility] Start: 04-20-2025 Patient discharge [facility] Start: 04-20-2025 [facility] Start: 04-19-2025 Following clinical p athway protocol [facility] Start: 04-19-2025 Ambulation without limitation [facility] Start: 04-19-2025 Assessment of risk o f venous thromboembolism [facility] Start: 04-19-2025 Care regimes management [facility] Start: 04-19-2025 Incentive spirometry [facility] Start: 04-19-2025 Insertion of cathete r into peripheral vein [facility] Start: 04-19-2025 Notification of physician [facility] Start: 04-19-2025 Oxygen therapy [facility] Start: 04-19-2025 Providing care accor ding to standard [facility] Start: 04-19-2025 Referral to occupati onal therapist [facility] Start: 04-19-2025 Referral to service [facility] Start: 04-19-2025 End: 04-19-2025 [facility] Start: 04-19-2025 Hospital admission, emergency, from emergency room, medical nature [facility] Start: 04-19-2025 Admission procedure [facility] Start: 04-19-2025 Consultation [facility] Start: 04-19-2025 Referral for physica l therapy [facility] Start: 04-19-2025 Referral to service [facility] Start: 04-19-2025 Inhalation therapy procedure [facility] Start: 04-04-2025 End: 04-04-2025 Patient encounter procedure 04/04/2025 12:00 PM EDT Appointment Radiology [address] [place] [address] DUE TO PT IMPLANT- IF APPT NEEDS TO BE RESCHEDULED IT MUST BE SENT TO THE FOLLOWING STAFF MESSAGE ADDRESS: IMAGING IMPLANTS [[id number]]PACEMAKER approved to schedule by Radiology Comment on above: DUE TO PT IMPLANT- I F APPT NEEDS TO BE RESCHEDULED IT MUST BE SENT TO THE FOLLOWING STAFF MESSAGE ADDRESS: IMAGING IMPLANTS [[id number]]PACEMAKER approved to schedule by Start: 04-02-2025 End: 04-02-2025 Patient encounter procedure Cardiology Comment on above: DEVICE CHECK FOR MRI CLEARANCE CHEST XRAY FOR MRI C LEARANCE Start: 03-11-2025 DTaP/Tdap/Td Vaccine s (2 - Td or Tdap) DTaP/Tdap/Td Vaccines (2 - Td or Tdap) [facility] Start: 03-11-2025 Urine microalbumin profile DTa P,Tdap,Td Vaccine (2 - Td or Tdap) [facility] Start: 03-10-2025 [facility] Start: 02-13-2025 Patient referral [facility] Work Phone: Start: 12-13-2024 End: 12-13-2024 Patient encounter procedure 12/13/2024 8:30 AM EST Appointment [facility] [address] [place] [phone] Marci Lopez [address] [place] [address] [facility] Start: 12-12-2024 Patient referral [facility] Work Phone: Start: 11-22-2024 Advance Directive Discussion Advance Directive Discussion [facility] Start: 11-22-2024 Medicare Advantage A nnual Wellness Visit Medicare Advantage Annual Wellness Visit [facility] Start: 11-18-2024 [facility] Start: 07-23-2024 Covid-19 Vaccine () Covid-19 Vaccine () [facility] Start: 07-23-2024 Covid-19 Vaccine () Covid-19 Vaccine () [facility] Start: 07-23-2024 Influenza vaccination C [facility] Start: 03-29-2024 Blood chemistry [facility] Start: 03-22-2024 Blood chemistry [facility] Start: 03-15-2024 Patient discharge [facility] Start: 03-14-2024 Referral to service [facility] Start: 03-14-2024 Development of care plan [facility] Start: 03-07-2024 Speech therapy management [facility] Start: 03-07-2024 Speech therapy assessment [facility] Start: 03-06-2024 [facility] Start: 03-02-2024 Fluid intake encouragement [facility] Start: 03-01-2024 Development of care plan [facility] Start: 03-01-2024 Developing a treatme nt plan [facility] Start: 02-29-2024 Verification routine [facility] Start: 02-29-2024 Admission procedure [facility] Start: 02-29-2024 Measuring intake and output [facility] Start: 02-29-2024 Patient referral to dietitian [facility] Start: 02-29-2024 Referral to occupati onal therapist [facility] Start: 02-29-2024 Referral to service [facility] Start: 02-29-2024 Vital signs measurements [facility] Start: 02-29-2024 [facility] Start: 02-29-2024 Patient discharge [facility] Start: 02-29-2024 Patient referral to dietitian [facility] Start: 02-26-2024 Consultation [facility] Start: 02-25-2024 End: 02-25-2024 Blood culture [facility] Start: 02-25-2024 [facility] Start: 02-25-2024 Bacteria identified in Blood by Culture Blood Culture [facility] Start: 02-22-2024 [facility] Start: 02-22-2024 Referral to occupati onal therapist [facility] Start: 02-22-2024 Referral to service [facility] Start: 02-21-2024 Application of intermittent pneumatic compression device [facility] Start: 02-21-2024 Ambulation without limitation [facility] Start: 02-21-2024 Assessment of risk o f venous thromboembolism [facility] Start: 02-21-2024 Insertion of cathete r into peripheral vein [facility] Start: 02-21-2024 Providing care accor ding to standard [facility] Start: 02-21-2024 Referral to gastroenterology service [facility] Start: 02-21-2024 [facility] Start: 02-21-2024 Following clinical p athway protocol [facility] Start: 02-21-2024 Verification routine [facility] Start: 02-21-2024 Admission procedure [facility] Start: 02-21-2024 Hospital admission, emergency, from emergency room, medical nature [facility] Start: 02-21-2024 [facility] Start: 02-21-2024 Patient referral to dietitian [facility] Start: 02-19-2024 [facility] Start: 02-19-2024 Emergency department visit moderate severity EMERGENCY DEPT VISIT LOW MDM [facility] Start: 02-19-2024 Iv infusion hydratio n each additional hour HYDRATE IV INFUSION ADD-ON [facility] Start: 02-19-2024 Iv infusion hydratio n initial 31 min-1 hour HYDRATION IV INFUSION INIT [facility] Start: 12-10-2023 [facility] Start: 12-08-2023 [facility] Start: 11-22-2023 Advance Directive Discussion Advance Directive Discussion [facility] Start: 11-22-2023 Behavioral Health Screening Behavioral Health Screening [facility] Start: 11-22-2023 Medicare Advantage A nnual Wellness Visit Medicare Advantage Annual Wellness Visit [facility] Start: 10-12-2023 Patient discharge [facility] Start: 10-08-2023 Development of care plan [facility] Start: 10-08-2023 [facility] Start: 10-07-2023 Following clinical p athway protocol [facility] Start: 10-07-2023 Aspiration precautions [facility] Start: 10-07-2023 Assessment of risk o f venous thromboembolism [facility] Start: 10-07-2023 Cardiac monitoring [facility] Start: 10-07-2023 Care regimes management [facility] Start: 10-07-2023 Catheterization of vein [facility] Start: 10-07-2023 Elevation of head of bed [facility] Start: 10-07-2023 Exercises [facility] Start: 10-07-2023 Fall prevention [facility] Start: 10-07-[address] anned interventions [facility] Start: 10-07-2023 Inhalation therapy procedure [facility] Start: 10-07-2023 Insertion of cathete r into peripheral vein [facility] Start: 10-07-2023 Introduction of urin dl catheter [facility] Start: 10-07-2023 Measuring intake and output [facility] Start: 10-07-2023 Notification of physician [facility] Start: 10-07-2023 Providing care accor ding to standard [facility] Start: 10-07-2023 Provision of activit y privileges [facility] Start: 10-07-2023 Referral to occupati onal therapist [facility] Start: 10-07-2023 Referral to service [facility] Start: 10-07-2023 Speech therapy assessment [facility] Start: 10-07-2023 Tobacco use cessatio n education [facility] Start: 10-07-2023 [facility] Start: 10-07-2023 Vital signs measurements [facility] Start: 10-07-2023 Verification routine [facility] Start: 10-07-2023 Hospital admission, emergency, from emergency room, medical nature [facility] Start: 10-07-2023 Admission procedure [facility] Start: 10-07-2023 Oxygen therapy [facility] Start: 10-07-2023 [facility] Start: 10-07-2023 Patient discharge [facility] Start: 10-02-2023 Speech therapy management [facility] Start: 10-02-2023 Developing a treatme nt plan [facility] Start: 10-02-2023 Development of care plan [facility] Start: 10-01-2023 Admission procedure [facility] Start: 10-01-2023 Measuring intake and output [facility] Start: 10-01-2023 Patient referral to dietitian [facility] Start: 10-01-2023 Referral to occupati onal therapist [facility] Start: 10-01-2023 Referral to service [facility] Start: 10-01-2023 Vital signs measurements [facility] Start: 10-01-2023 End: 10-01-2023 [facility] Start: 10-01-2023 Speech therapy assessment [facility] Start: 10-01-2023 Patient discharge [facility] Start: 09-29-2023 [facility] Start: 09-28-2023 Following clinical p athway protocol [facility] Start: 09-28-2023 Cardiac monitoring [facility] Start: 09-28-2023 Catheterization of vein [facility] Start: 09-28-2023 Elevation of head of bed [facility] Start: 09-28-2023 Exercises [facility] Start: 09-28-[address] anned interventions [facility] Start: 09-28-2023 Notification of physician [facility] Start: 09-28-2023 Oxygen therapy [facility] Start: 09-28-2023 Patient referral to dietitian [facility] Start: 09-28-2023 Referral to occupati onal therapist [facility] Start: 09-28-2023 Referral to service [facility] Start: 09-28-2023 Speech therapy assessment [facility] Start: 09-28-2023 Tobacco use cessatio n education [facility] Start: 09-28-2023 [facility] Start: 09-28-2023 Vital signs measurements [facility] Start: 09-28-2023 Admission procedure [facility] Start: 09-28-2023 Hospital admission, emergency, from emergency room, medical nature [facility] Start: 09-28-2023 Oxygen therapy [facility] Start: 09-28-2023 [facility] Start: 08-07-2023 Adult depression scr eening assessment DEPRESSION SCREENING [facility] Start: 07-23-2023 COVID-19 Vaccine () COVID-19 Vaccine () [facility] Start: 07-23-2023 Covid-19 Vaccine () Covid-19 Vaccine () [facility] Start: 07-23-2023 Influenza vaccination C [facility] Start: 11-22-2022 ADVANCE DIRECTIVE DISCUSSION ADVANCE DIRECTIVE DISCUSSION [facility] Start: 11-22-2022 DEPRESSION ASSESSMENT DEPRESSION ASS ESSMENT [facility] Start: 10-23-2022 Adult depression scr eening assessment DEPRESSION SCREENING [facility] Start: 07-23-2022 Influenza vaccination INFLUENZA (#1) [facility] Start: 02-25-2022 COVID-19 VACCINE (4 - Booster for Moderna series) COVID-19 VACCINE (4 - Booster for Moderna series) [facility] Start: 12-22-2021 COVID-19 VACCINE (4 - Booster for Moderna series) COVID-19 VACCINE (4 - Booster for Moderna series) [facility] Start: 12-22-2021 COVID-19 VACCINE (5 - Booster for Moderna series) COVID-19 VACCINE (5 - Booster for Moderna series) [facility] Start: 12-22-2021 COVID-19 VACCINE (5 - Moderna series) COVID-19 VACCINE (5 - Moderna series) [facility] Start: 11-22-2021 ADVANCE DIRECTIVE DISCUSSION ADVANCE DIRECTIVE DISCUSSION [facility] Start: 11-22-2021 DEPRESSION ASSESSMENT DEPRESSION ASS ESSMENT [facility] Start: 02-22-2020 Colonoscopy COLONOSCOPY [facility] Start: 02-22-2020 COLORECTAL CANCER SCREENING COLORECTAL CANCER SCREENING [facility] Start: 02-22-2020 Screening for malign ant neoplasm of colon [facility] Start: 2018 BONE DENSITY BONE DENSITY [facility] Start: 2018 Bone Density Screening Bone Density Screening [facility] Start: 2018 Pneumococcal Vaccine : 65+ (1 - PCV) Pneumococcal Vaccine: 65+ (1 - PCV) [facility] Start: 2018 Pneumococcal Vaccine : 65+ (1 of 1 - PCV) Pneumococcal Vaccine: 65+ (1 of 1 - PCV) [facility] Start: 2018 Pneumococcal Vaccine : 65+ Years (1 of 1 - PCV) Pneumococcal Vaccine: 65+ Years (1 of 1 - PCV) [facility] Start: 2018 PNEUMOCOCCAL: 65+ (1 - PCV) PNEUMOCOCCAL: 65+ (1 - PCV) [facility] Start: 2018 PNEUMOVAX AGE 65 AND OVER WITH 5YR LOOKBACK (#1) PNEUMOVAX AGE 65 AND OVER WITH 5YR LOOKBACK (#1) [facility] Start: 2018 Screening for osteoporosis Bone Dens ity Screening [facility] Start: 06-18-2015 Lipid 1996 panel - S george or Plasma Lipid Screening [facility] Start: 06-18-2015 Lipid panel Lipid Screening [facility] Start: 06-18-2015 LIPID SCREEN LIPID SCREEN [facility] Start: 05-06-2015 Shingrix Vaccine (2 of 3) Moran grix Vaccine (2 of 3) [facility] Start: 2013 RSV Immunization age d 60 or older (1 - 1-dose 60+ series) RSV Immunization aged 60 or older (1 - 1-dose 60+ series) [facility] Start: 2013 RSV Immunization for Adults (1 - Risk 60-74 years 1-dose series) RSV Immunization for Adults (1 - Risk 60-74 years 1-dose series) [facility] Start: 2013 RSV Vaccine (1 - 1-d ose 60+ series) RSV Vaccine (1 - 1-dose 60+ series) [facility] Start: 2013 RSV Vaccine (1 - Ris k 60-74 years 1-dose series) RSV Vaccine (1 - Risk 60-74 years 1-dose series) [facility] Start: 2012 DIABETES SCREEN DIABETES SCREEN [facility] Start: 2012 Diabetes Screening Diabetes Screenin g [facility] Start: 06-18-2011 Lipid panel Lipid Panel [facility] Start: 2008 Influenza vaccination LUNG CANCER [facility] Start: 2003 Influenza vaccination LUNG CANCER [facility] Start: 2003 Pneumococcal Vaccine : 50+ (1 of 1 - PCV) Pneumococcal Vaccine: 50+ (1 of 1 - PCV) [facility] Start: 2003 SHINGRIX VACCINE (1 of 2) MORAN GRIX VACCINE (1 of 2) [facility] Start: 2003 Zoster Vaccines (1 of 2) Zoste r Vaccines (1 of 2) [facility] Start: 1998 COLOGUARD (FIT-DNA) COLOGUARD (FIT-D NA) [facility] Start: [address] COLONOGRAPHY [facility] Start: 1998 FECAL OCCULT BLOOD FECAL OCCULT BLOO D [facility] Start: 1998 Screening for malign ant neoplasm of colon [facility] Start: 1998 SIGMOIDOSCOPY SIGMOIDOSCOPY [facility] Start: 1993 Mammography [facility] Start: 1993 Screening for malign ant neoplasm of breast [facility] Start: 1972 DTaP/Tdap/Td Vaccine s (1 - Tdap) DTaP/Tdap/Td Vaccines (1 - Tdap) [facility] Start: 1972 Pneumococcal Vaccine : 50+ Years (1 of 2 - PCV) Pneumococcal Vaccine: 50+ Years (1 of 2 - PCV) [facility] Start: 1972 Urine microalbumin profile DTAP,TDAP ,TD (1 - Tdap) [facility] Start: 1971 Anxiety Screening Anxiety Screening [facility] Start: 1971 Depression Screening Depression Scre ening [facility] Start: 1971 Diabetes: Estimated Glomerular Filtration Rate for Kidney Health Diabetes: Estimated Glomerular Filtration Rate for Kidney Health [facility] Start: 1971 Diabetes: Urine Albumin-Creatinine Ratio for Kidney Health Diabetes: Urine Albumin-Creatinine Ratio for Kidney Health [facility] Start: 1971 HEPATITIS C SCREENING HEPATITIS C [facility] Start: 1971 Hepatitis C screening Hepatitis C [facility] Start: 1965 Depression Monitoring Depression Gopal stevenson [facility] Start: 1965 Depression Screening Depression Scre ening [facility] Start: 1963 Diabetic foot examination Diabetes: Foot Exam [facility] Start: 1963 Glaucoma screening Diabetes: R etinopathy Screening [facility] Start: 1963 Preventive dental service Diabetes: Dental Exam [facility] Start: 1959 Pneumococcal Vaccine : 65+ Years (1 of 2 - PCV) Pneumococcal Vaccine: 65+ Years (1 of 2 - PCV) [facility] Start: 1953 Creatinine measurement Creatinine Le jana [facility] Start: 1953 Echocardiography Echocardiogram [facility] Start: 1953 Hemoglobin A1c measurement Rylie betes: Hemoglobin A1C [facility] Start: 1953 Lipid panel Lipid Panel [facility] Start: 1953 Potassium measurement Potassium Leve l [facility] Start: 1953 Screening for malign ant neoplasm of colon [facility] Start: 1953 Screening for osteoporosis Bone Dens ity Scan [facility] Anion gap in Serum o r Plasma [facility] Anion gap in Serum o r Plasma [facility] Anion gap in Serum o r Plasma [facility] Anion gap in Serum o r Plasma [facility] Anion gap in Serum o r Plasma [facility] BUN/Creatinine ratio [facility] BUN/Creatinine ratio [facility] BUN/Creatinine ratio [facility] BUN/Creatinine ratio [facility] BUN/Creatinine ratio [facility] Calcium [Mass/volume ] in Serum or Plasma [facility] Calcium [Mass/volume ] in Serum or Plasma [facility] Calcium [Mass/volume ] in Serum or Plasma [facility] Calcium [Mass/volume ] in Serum or Plasma [facility] Calcium [Mass/volume ] in Serum or Plasma [facility] Carbon dioxide, tota l [Moles/volume] in Central venous blood [facility] Carbon dioxide, tota l [Moles/volume] in Central venous blood [facility] Carbon dioxide, tota l [Moles/volume] in Central venous blood [facility] Carbon dioxide, tota l [Moles/volume] in Central venous blood [facility] Carbon dioxide, tota l [Moles/volume] in Central venous blood [facility] Creatinine [Mass/vol ume] in Serum or Plasma [facility] Creatinine [Mass/vol ume] in Serum or Plasma [facility] Creatinine [Mass/vol ume] in Serum or Plasma [facility] Creatinine [Mass/vol ume] in Serum or Plasma [facility] Creatinine [Mass/vol ume] in Serum or Plasma [facility] Erythrocyte mean corpuscular volume determination [facility] Erythrocyte mean corpuscular volume determination [facility] Erythrocyte mean corpuscular volume determination [facility] Erythrocyte mean corpuscular volume determination [facility] Erythrocyte mean corpuscular volume determination [facility] Glucose [Mass/volume ] in Serum or Plasma [facility] Glucose [Mass/volume ] in Serum or Plasma [facility] Glucose [Mass/volume ] in Serum or Plasma [facility] Glucose [Mass/volume ] in Serum or Plasma [facility] Glucose [Mass/volume ] in Serum or Plasma [facility] Hematocrit [Volume Fraction] of Blood [facility] Hematocrit [Volume Fraction] of Blood [facility] Hematocrit [Volume Fraction] of Blood [facility] Hematocrit [Volume Fraction] of Blood [facility] Hematocrit [Volume Fraction] of Blood [facility] Hemoglobin [Mass/vol ume] in Blood [facility] Hemoglobin [Mass/vol ume] in Blood [facility] Hemoglobin [Mass/vol ume] in Blood [facility] Hemoglobin [Mass/vol ume] in Blood [facility] Hemoglobin [Mass/vol ume] in Blood [facility] Leukocytes [#/volume ] in Blood [facility] Leukocytes [#/volume ] in Blood [facility] Leukocytes [#/volume ] in Blood [facility] Leukocytes [#/volume ] in Blood [facility] Leukocytes [#/volume ] in Blood [facility] Mean corpuscular hemoglobin concentration determination [facility] Mean corpuscular hemoglobin concentration determination [facility] Mean corpuscular hemoglobin concentration determination [facility] Mean corpuscular hemoglobin concentration determination [facility] Mean corpuscular hemoglobin concentration determination [facility] Mean corpuscular hemoglobin determination [facility] Mean corpuscular hemoglobin determination [facility] Mean corpuscular hemoglobin determination [facility] Mean corpuscular hemoglobin determination [facility] Mean corpuscular hemoglobin determination [facility] Measurement of renal function [facility] Measurement of renal function [facility] Measurement of renal function [facility] Measurement of renal function [facility] Measurement of renal function [facility] Measurement of respi ratory function [facility] End: 03-29-2026 MR Brain WO contrast MRI BRAIN WO IVCON Radiology Routine Essential tremor Dyskinesia, tardive 1 Occurrences starting 02/27/2025 until 03/29/2026 [facility] Work Phone: Comment on above: 1 Occurrences starti ng 02/27/2025 until 03/29/2026 Neutrophil count [facility] Neutrophil count [facility] Neutrophil count [facility] Neutrophil count [facility] Neutrophil count [facility] Neutrophil percent differential count [facility] Neutrophil percent differential count [facility] Neutrophil percent differential count [facility] Neutrophil percent differential count [facility] Neutrophil percent differential count [facility] End: 07-30-2024 NM BRAIN TREMOR SPECT/CT NM BRAIN TREMOR SPECT/CT Radiology Routine 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) Parkinsonism, unspecified Parkinsonism type (HCC) 1 Occurrences starting 07/01/2023 until 07/30/2024 [facility] Work Phone: Comment on above: 1 Occurrences starti ng 07/01/2023 until 07/30/2024 NM BRAIN TREMOR SPECT/CT NM BRAI N TREMOR SPECT/CT Radiology Routine 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) Parkinsonism, unspecified Parkinsonism type 09/21/2023 2:02 PM EDT [facility] Work Phone: OUTSIDE PROCEDURE SCAN OUTSIDE P ROCEDURE SCAN Procedures Ordered: 07/20/2024 [facility] Comment on above: Ordered: 07/20/2024 OUTSIDE PROCEDURE SCAN OUTSIDE P ROCEDURE SCAN Procedures Ordered: 06/01/2025 [facility] Comment on above: Ordered: 06/01/2025 Patient Education [facility] Work Phone: Patient referral [facility] Work Phone: Platelets [#/volume] in Blood [facility] Platelets [#/volume] in Blood [facility] Platelets [#/volume] in Blood [facility] Platelets [#/volume] in Blood [facility] Platelets [#/volume] in Blood [facility] Potassium measurement [facility] Potassium measurement [facility] Potassium measurement [facility] Potassium measurement [facility] Potassium measurement [facility] Red blood cell count [facility] Red blood cell count [facility] Red blood cell count [facility] Red blood cell count [facility] Red blood cell count [facility] Red cell distributio n width determination [facility] Red cell distributio n width determination [facility] Red cell distributio n width determination [facility] Red cell distributio n width determination [facility] Red cell distributio n width determination [facility] Respiratory pathogen s DNA and RNA panel - Respiratory specimen by ENRIQUE with probe detection [facility] Serum chloride measurement [facility] Serum chloride measurement [facility] Serum chloride measurement [facility] Serum chloride measurement [facility] Serum chloride measurement [facility] Sodium measurement [facility] Sodium measurement [facility] Sodium measurement [facility] Sodium measurement [facility] Sodium measurement [facility] Troponin T.cardiac [Mass/volume] in Serum or Plasma by High sensitivity method [facility] Urea nitrogen [Mass/volume] in Serum or Plasma [facility] Urea nitrogen [Mass/volume] in Serum or Plasma [facility] Urea nitrogen [Mass/volume] in Serum or Plasma [facility] Urea nitrogen [Mass/volume] in Serum or Plasma [facility] Urea nitrogen [Mass/volume] in Serum or Plasma [facility] Urine culture [facility] Vascular US carotid artery duplex bilateral Vascular US carotid artery duplex bilateral CV Vascular Ultrasound Routine Dizziness and giddiness 11/10/2024 3:39 PM EST [facility] Work Phone: Walking distance 6 minutes [facility] End: 07-10-2024 XR Abdomen Single view [facility] Work Phone: Comment on above: Once for 1 Occurrenc es starting 07/10/2024 until 07/10/2024 End: 06-01-2025 XR Chest 2 Views [facility] Work Phone: Comment on above: Once for 1 Occurrenc es starting 06/01/2025 until 06/01/2025 XR Chest PA and Lateral XR CHEST 2V FRONTAL/LAT Radiology Routine Presence of cardiac pacemaker 04/02/2025 9:35 AM EDT [facility] Work Phone: [facility] Immunizations Immunization Date Immunization Notes Care Provider Fa [facility] 01-19-[address] Adrienne Byers Work Phone: [facility] 10-25-[address] Adrienne Byers Work Phone: [facility] 08-18-2023 Human rabies vaccine from Chicken fibroblast culture JAXON KUHN MD [facility] 08-11-2023 Human rabies vaccine from Chicken fibroblast culture JAXON KUHN MD [facility] 08-07-2023 Human rabies vaccine from Chicken fibroblast culture JAXON KUHN MD [facility] 08-07-2023 rabies vaccine, unspecified formulation JAXON KUHN MD [facility] 08-04-2023 Human rabies vaccine from Chicken fibroblast culture JAXON KUHN MD [facility] 10-27-2021 influenza virus vaccine, unspecified formulation DR LARY WHEAT DO [facility] 10-27-2021 influenza, injectabl e, quadrivalent, preservative free Dr. Adrienne Byers Work Phone: [facility] 10-27-2021 SARS-CoV-2 (COVID-19 ) mRNA-[address] LARY WHEAT DO [facility] 02-27-2021 SARS-CoV-2 (COVID-19 ) mRNA-[address] LARY WHEAT DO [facility] 01-30-2021 SARS-CoV-2 (COVID-19 ) mRNA-[address] LARY WHEAT DO [facility] Comment on above: Result Comment: 2020: [id number] 11-22-2020 influenza, injectabl e, quadrivalent, preservative free Dr. Adrienne Byers Work Phone: [facility] 11-22-2020 SARS-CoV-2 (COVID-19 ) mRNA-1273 vaccine ADRIENNE BYERS DO [facility] 08-30-2020 influenza, injectabl e, quadrivalent, preservative free; Translations: [Fluarix PF Quadrivalent ] DR LARY WHEAT DO [facility] 08-03-2019 influenza virus vaccine, unspecified formulation DR LARY WHEAT DO [facility] Comment on above: Result Comment: [facility] 08-03-2019 Influenza, high dose seasonal Dr. Marci Lopez DO Work Phone: [facility] 08-03-2019 influenza, high dose seasonal, preservative-free Dr. Adrienne Byers Work Phone: [facility] 08-03-2019 Dr. Marci navarro DO Work Phone: [facility] 09-09-2018 influenza virus vaccine, unspecified formulation NOREEN FABIOLA MD [facility] [facility] 09-09-2018 influenza, injectabl e, quadrivalent, preservative free Dr. Adrienne Byers Work Phone: [facility] 09-03-2017 influenza virus vaccine, unspecified formulation NOREEN HICKS MD [facility] 09-03-2017 influenza, injectabl e, quadrivalent, preservative free Dr. Adrienne Byers Work Phone: [facility] 09-18-2016 influenza virus vaccine, unspecified formulation NOREEN HICKS MD [facility] 09-18-2016 influenza, injectabl e, quadrivalent, preservative free Dr. Adrienne Byers Work Phone: [facility] 03-11-2015 tetanus toxoid, redu son diphtheria toxoid, and acellular pertussis vaccine, adsorbed DR LARY WHEAT DO [facility] 03-11-2015 zoster vaccine, live DR ÁLVARO WHEAT DO [facility] 09-22-2014 Influenza virus vaccine [facility] 09-22-2014 Dr. Covarrubias Logs don DO Work Phone: [facility] Payers Date Payer Category Payer Self-pay [id number] 2022 Medicare (Managed Care) [employer] G O[employer] PLUS [id number] 2022 Medicare HMO [id number] 2021 Unknown [employer] BLUE CARD PPO OOS [id number] 2021-Present [phone] [address] [place] [address] PPO [id number] 2019 Medicare HUMANA MEDICARE HU[employer]NA MEDICARE PPO [id number] 2019-Present [phone] [address] [address] [place] [address] PPO [id number] 2019 Medicare 1.2.840.203484. 1.13.159. [id number] 2017 Unknown [id number]. 2.7.3.276800.315 2015 Unknown [id number] 2013 Medicare [id number] 1953 Unknown [id number] 2.16.840.1.984403.3.579. 2.627 1953 Unknown [id number] 2.16.840.1.519360.3.579. 2.627 1953 Unknown [id number] 2.16.840.1.066355.3.579. 2.627 1953 Unknown [id number] 2.16.840.1.252172.3.579. 2.627 1953 Unknown [id number] 2.16.840.1.139973.3.579. 2. 1953 Unknown [id number] 2.16.840.1.962789.3.579. 2. 1953 Unknown [id number] 2.16.840.1.845610.3.579. 2. 1953 Unknown [id number] 2.16.840.1.236187.3.579. 2. 1953 Unknown [id number] 2.16.840.1.088031.3.579. 2. 1953 Unknown [id number] 2.16.840.1.109029.3.579. 2. 1953 Unknown [id number] 2.16.840.1.968072.3.579. 2. 1953 Unknown [id number] 2.16.840.1.931207.3.579. 2. 1953 Unknown [id number] 2.16.840.1.501613.3.579. 2. 1953 Unknown [id number] 2.16.840.1.177205.3.579. 2. 1953 Unknown [id number] 2.16.840.1.231574.3.579. 2. 1953 Unknown [id number] 2.16.840.1.291242.3.579. 2. 1953 Unknown [id number] 2.16.840.1.764705.3.579. 2. 1953 Unknown [id number] 2.16.840.1.204006.3.579. 2. 1953 Unknown [id number] 2.16.840.1.270093.3.579. 2. 1955 Unknown [id number] 2.16.840.1.095424.3.579. 2.627 Unknown [id number] 2.16.840.1.345321.3.579. 2.462 Unknown [id number] 2.16.840.1.190828.3.579. 2.462 Unknown [id number] 2.16.840.1.161787.3.579. 2.462 Unknown [id number] 2.16.840.1.379819.3.579. 2.462 Unknown [id number] 2.16.840.1.268499.3.579. 2.462 Unknown [id number] 2.16.840.1.228585.3.579. 2.462 Unknown [id number] 2..840.1.543440.3.579. 2.462 Unknown [id number] 2.840.1.460153.3.579. 2.462 Unknown [id number] 2..840.1.131851.3.579. 2.462 Unknown [id number] 2.16.840.1.273021.3.579. 2.462 Unknown [id number] 2.16.840.1.104155.3.579. 2.462 Unknown [id number] 2.16.840.1.639921.3.579. 2.462 Unknown [id number] 2.16.840.1.413553.3.579. 2.462 Unknown [id number] 2.16.840.1.197335.3.579. 2.462 Unknown [id number] 2.16.840.1.078461.3.579. 2.462 Unknown [id number] 2.16.840.1.339070.3.579. 2.462 Unknown [id number] 2.16.840.1.103570.3.579. 2.462 Unknown [id number] 2.16.840.1.769615.3.579. 2.462 Unknown [id number] 2.16.840.1.714123.3.579. 2.462 Unknown [id number] 2.16.840.1.273853.3.579. 2.462 Unknown [id number] 2.16.840.1.118955.3.579. 2.462 Unknown [id number] 2.16.840.1.218419.3.579. 2.462 Unknown [id number] 2.16.840.1.834518.3.579. 2.462 Unknown [id number] 2.16.840.1.740575.3.579. 2.462 Unknown [id number] 2.16.840.1.521659.3.579. 2.462 Unknown [id number] 2.16.840.1.609377.3.579. 2.462 Unknown [id number] 2.16.840.1.926586.3.579. 2.462 Unknown [id number] 2.16.840.1.811617.3.579. 2.462 Unknown [id number] 2.16.840.1.847281.3.579. 2.462 Unknown [id number] 2.16.840.1.359466.3.579. 2.462 Unknown [id number] 2.16.840.1.921613.3.579. 2.462 Unknown [id number] 2.16.840.1.649326.3.579. 2.462 Unknown [id number] 2.16.840.1.001134.3.579. 2.462 Unknown [id number] 2.16.840.1.003921.3.579. 2.462 Unknown [id number] 2.16.840.1.412202.3.579. 2.462 Unknown [id number] 2.16.840.1.334137.3.579. 2.462 Unknown [id number] 2.16.840.1.582997.3.579. 2.462 Unknown [id number] 2.16840.1.181226.3.579. 2.462 Unknown [id number] 2.16.840.1.817637.3.579. 2.462 Unknown [id number] 2.16.840.1.203819.3.579. 2.462 Unknown [id number] 2.16840.1.384837.3.579. 2.462 Unknown [id number] 2.840.1.288136.3.579. 2.462 Unknown [id number] 2.840.1.138931.3.579. 2.462 Unknown [id number] 2.840.1.491728.3.579. 2.462 Unknown [id number] 2.840.1.150159.3.579. 2.462 Unknown [id number] 2.840.1.737505.3.579. 2.462 Unknown [id number] 2.840.1.705297.3.579. 2.462 Unknown [id number] 2.840.1.196389.3.579. 2.462 Unknown [id number] 2.840.1.795040.3.579. 2.462 Unknown [id number] 2.840.1.049545.3.579. 2.462 Unknown [id number] 2.840.1.139775.3.579. 2.462 Unknown [id number] 2.840.1.979779.3.579. 2.462 Unknown [id number] 2.840.1.862361.3.579. 2.462 Unknown [id number] 2.840.1.802972.3.579. 2.462 Unknown [id number] 2.840.1.535291.3.579. 2.462 Unknown [id number] 2.16.840.1.237009.3.579. 2.462 Unknown [id number] 2.16.840.1.016493.3.579. 2.462 Unknown [id number] 2.16.840.1.363599.3.579. 2.462 Unknown [id number] 2.16.840.1.536275.3.579. 2.462 Unknown [id number] 2.16.840.1.006346.3.579. 2.462 Unknown [id number] 2.16.840.1.517218.3.579. 2.462 Unknown [id number] 2.16.840.1.426796.3.579. 2.462 Unknown [id number] 2.16.840.1.097517.3.579. 2.462 Unknown [id number] 2.16.840.1.857781.3.579. 2.462 Unknown [id number] 2.16.840.1.246350.3.579. 2.462 Social History Date Type Detail Facility Start: 10-04-2020 End: 12-13-2024 Ex-smoker (finding) [facility] Start: 1955 Sex Assigned At Female A [facility] Start: 12-23-1963 End: 12-23-2008 History of tobacco use Current smoker [facility] Start: 12-23-1963 End: 12-23-2008 History of tobacco use Cigarette Smoker [facility] Start: 07-10-2021 End: 07-10-2025 Alcohol intake Current non-drinker of alcohol (finding) [facility] Start: 05-25-2022 End: 05-12-2023 Exposure to SARS-CoV-2 (event) Not sure [facility] Start: 07-10-2021 End: 12-13-2024 Cigarettes smoked current (pack per day) - Reported 1.5 [facility] Start: 07-10-2021 End: 12-13-2024 Tobacco use and exposure Smokeless tobacco non-user [facility] Start: 05-12-2023 End: 12-13-2024 Tobacco use panel [facility] Start: 10-23-2012 Adult Depression Screening Assessment 3 [facility] Start: 10-23-2021 Gender identity Identifies as female gender (finding) [facility] Start: 10-23-2021 Sexual orientation Heterosexual (fin ding) [facility] Start: 09-28-2023 End: 02-29-2024 Tobacco smoking status NHIS Unknown if ever smoked [facility] Start: 11-18-2014 None [facility] Start: 11-18-2014 Spouse/ Signif icant Other [facility] Start: 11-18-2014 Non-smoker [facility] Start: 10-01-2023 Cigarettes [facility] Start: 1955 Sex assigned at Not on file S [facility] Start: 06-16-2024 End: 03-10-2025 Sex Female (finding) [facility] NEGATED: Highlighted row [facility] NEGATED: Highlighted row [facility] Medical Equipment Procedure Code Equipment Code Equipment Origin al Text Equipment Identifier Dates Arvin [employer] Vigilant ICD G247 FDA Start: 05-12-2022 Arvin Scient[employer] Vigilant ICD G247 FDA Start: 05-12-2022 Arvin Scient[employer] Vigilant ICD G247 FDA Start: 05-12-2022 Arvin Scientifi [employer] Vigilant ICD G247 FDA Start: 05-12-2022 Arvin Scientifi c Vigilant ICD G247 FDA Start: 05-12-2022 Arvin Scientifi c Vigilant ICD G247 FDA Start: 05-12-2022 Arvin Scientifi c Vigilant ICD G247 FDA Start: 05-12-2022 Arvin Scientifi c Vigilant ICD G247 FDA Start: 05-12-2022 Arvin Scientifi c Vigilant ICD G247 FDA Start: 05-12-2022 Icd-05/12/2022 [id number] Start: 05-12-2022 Comment on above: Description: [facility] G24 7 RA [id number] RV [id number] LV [id number] Arvin [employer] Vigilant ICD G247 FDA Start: 05-12-2022 Arvin Scient[employer] Vigilant ICD G247 FDA Start: 05-12-2022 [id number] Start: 05-12-2022 [id number] Start : 05-12-2022 [id number] Start : 05-12-2022 Arvin Scientifi [employer] Vigilant ICD G247 FDA Start: 05-12-2022 Arvin Scientifi [employer] Vigilant ICD G247 FDA Start: 05-12-2022 FDA Start: 05-12-2022 Arvin Scientifi c Vigilant ICD G247 FDA Start: 05-12-2022 Arvin Scientifi c Vigilant ICD G247 FDA Start: 05-12-2022 Arvin Scientifi c Vigilant ICD G247 FDA Start: 05-12-2022 Arvin Scientifi c Vigilant ICD G247 FDA Start: 05-12-2022 FDA Start: 05-12-2022 Arvin Scientifi c Vigilant ICD G247 FDA Start: 05-12-2022 Arvin Scientifi c Vigilant ICD G247 FDA Start: 05-12-2022 FDA Start: 05-12-2022 FDA Start: 05-12-2022 FDA Start: 05-12-2022 FDA Start: 05-12-2022 FDA Start: 05-12-2022 FDA Start: 05-12-2022 FDA Start: 05-12-2022 FDA Start: 05-12-2022 FDA Start: 05-12-2022 FDA Start: 05-12-2022 FDA Start: 05-12-2022 FDA Start: 05-12-2022 FDA Start: 05-12-2022 FDA Start: 05-12-2022 FDA Start: 05-12-2022 Goals Date Patient Goal Desired Activity /State Functional Status Date Assessment Result Facility 07-04-2025 Functional status Ambulates;Bath room Privilege [facility] Work Phone: 06-11-2025 Functional status Bedrest [facility] Work Phone: 05-03-2025 Functional status Ambulates;Jose r;Bedside Commode [facility] Work Phone: 04-26-2025 Functional status Bedrest [facility] Work Phone: 04-25-2025 Functional status With Assist of 1 [facility] Work Phone: 04-20-2025 Functional status Ambulates;Bath room Privilege [facility] Work Phone: 04-19-2025 Functional status Standard Walker [facility] Work Phone: 03-15-2024 Functional status Ambulates;Up ad ann marie [facility] Work Phone: 02-29-2024 Functional status Chair [facility] Work Phone: 10-28-2023 Functional Status flight to bed [facility] Functional status Activity Abili ty Standby Assist [facility] Work Phone: 10-11-2023 Functional status Ambulates [facility] Work Phone: 10-07-2023 Functional status Ambulates [facility] Work Phone: 10-06-2023 Functional status Rolling Walker [facility] Work Phone: 10-01-2023 Functional status Ambulates [facility] Work Phone: 08-11-2023 Functional Status Room check performed [facility] 08-04-2023 Functional Status Standard Safet y ID band on, Call device within reach, Bed in low position, Wheels locked, Upper/Half-Length side-rails up, Bedside Cart Locked, Safety level maintained [facility] 08-20-2022 Functional Status Minimum assistance [facility] 08-19-2022 Functional Status 20 [facility] 08-19-2022 Functional Status Standard Safet y ID band on, Call device within reach, Bed in low position, Wheels locked, Upper/Half-Length side-rails up, Phone within reach, personal items within reach, Visitor at bedside, Safety level maintained [facility] 05-22-2022 Functional Status Resting Katie alfaro 04-26-2022 Functional Status Independent [place] Daniel alfaro [facility] 04-03-2022 Functional Status Katie alfaro 04-03-2022 Functional Status Katie alfaro 04-02-2022 [facility] Functional Status Katierosie alfaro 02-05-2015 Are you deaf, or do you have serious difficulty hearing No 02/05/2015 4:06 PM EDT Armiad Ballard LPN No [facility] 02-05-2015 Are you blind, or do you have serious difficulty seeing, even when wearing glasses No 02/05/2015 4:06 PM Armida Lowe LPN No [facility] 02-05-2015 Do you have serious difficulty walking or climbing stairs No 02/05/2015 4:06 PM Armida Lowe LPN No [facility] 02-05-2015 Do you have difficul ty dressing or bathing No 02/05/2015 4:06 PM EDT Armida Ballard LPN No [facility] 02-05-2015 Because of a physica l, mental, or emotional condition, do you have difficulty doing errands alone such as visiting a physician's office or shopping No 02/05/2015 4:06 PM EDT Armida Ballard LPN No [facility] Mental Status Date Assessment Result Facility 07-04-2025 Cognitive function Voice/Name [facility] Work Phone: 06-11-2025 Cognitive function Voice/Name [facility] Work Phone: 05-03-2025 Cognitive function Voice/Name [facility] Work Phone: 04-25-2025 Cognitive function Voice/Name;Touch/Huma carson [facility] Work Phone: 04-20-2025 Cognitive function Voice/Name [facility] Work Phone: 04-19-2025 Cognitive function Level Of Cons ciousness Awake;Alert;Follows Commands [facility] Work Phone: 03-15-2024 Cognitive function Voice/Name [facility] Work Phone: 03-13-2024 Cognitive function Cooperative [facility] Work Phone: 02-29-2024 Cognitive function Voice/Name [facility] Work Phone: 10-12-2023 Cognitive function Voice/Name [facility] Work Phone: 10-07-2023 Cognitive function Voice/Name [facility] Work Phone: 10-06-2023 Cognitive function Voice/Name [facility] Work Phone: 10-01-2023 Cognitive function Voice/Name [facility] Work Phone: 09-28-2023 Cognitive function Voice/Name [facility] Work Phone: 08-04-2023 Mental Status Orientation Oriented x 4 [facility] 08-20-2022 Mental Status Orientation Oriented x [address] [facility] 08-19-2022 Mental Status [facility] 05-22-2022 Mental Status Oriented x 4 [facility] 04-25-2022 Mental Status Oriented x 4 [facility] 04-03-2022 Mental Status [facility] 04-02-2022 Mental Status [facility] 02-05-2015 Because of a physica l, mental, or emotional condition, do you have serious difficulty concentrating, remembering, or making decisions No 02/05/2015 4:06 PM EDT Armida Ballard LPN No [facility] Clinical Notes 02-21-2015 to 08-07-2025 Telephone Encounter - Xiomara Perea - 08/07/2025 6:03 PM EDTTelephone Encounter - Xiomara Perea - 08/07/2025 6:03 PM EDTTelephone Encounter - Anna Zarco RN - 08/04/2025 1:33 PM EDT Note Date & Type Note Facility 08-07-2025 Telephone encounter Note Name of caller: Song Contact phone number: [phone] Relationship to Patient: spouse/SO Provider: Dr. Lopez Practice: [facility], [place], operated by [facility] Chief Complaint/Reason for Call: Patient Song to request refill for patient's oxyCODONE HCl (5 MG Tablet). Song stated patient is completley out and will need refill for tomorrow. Please contact Song and advise. Best time of day caller can be reached: any Patient advised that office/PCP has 24-48 business hours to return their call: Yes [facility] 08-07-2025 Miscellaneous Notes Name of caller: Song Contact phone number: [phone] Relationship to Patient: spouse/SO Provider: Dr. Lopez Practice: [facility], [place], operated [facility] Chief Complaint/Reason for Call: Patient Song to request refill for patient's oxyCODONE HCl (5 MG Tablet). Song stated patient is completley out and will need refill for tomorrow. Please contact Song and advise. Best time of day caller can be reached: any Patient advised that office/PCP has 24-48 business hours to return their call: Yes documented in this encounter [facility] 08-04-2025 Telephone encounter Note S: Song spoke with [facility] nurse regarding medication refill B: Onset of symptoms/concern 08/04/25 A: States patient will need refill of Oxycodone 5 mg tablets on Wednesday. States they have 3 tablets left. Song confirmed no known drug allergies and pharmacy as [facility]. R: Song understands care advice that office is closed and a message will be sent to office for review during office hours. No further needs at this time. Patient spouse instructed to call back with new or worsening symptoms. Reason for Disposition Caller requesting a CONTROLLED substance prescription refill (e.g., narcotics, ADHD medicines) Protocols used: Medication Refill and Renewal [id number] [facility] 08-04-2025 Miscellaneous Notes S: Song spoke with [facility] nurse regarding medication refill B: Onset of symptoms/concern 08/04/25 A: [facility] patient will need refill of Oxycodone 5 mg tablets on Wednesday. States they have 3 tablets left. Song confirmed no known drug allergies and pharmacy as [facility]. R: Song understands care advice that office is closed and a message will be sent to office for review during office hours. No further needs at this time. Patient spouse instructed to call back with new or worsening symptoms. Reason for Disposition Caller requesting a CONTROLLED substance prescription refill (e.g., narcotics, ADHD medicines) Protocols used: Medication Refill and Renewal [id number] documented in this encounter [facility] 07-26-2025 Procedure note [facility] 07-19-2025 Procedure note [facility] 07-10-2025 History of Present illness Narrative Images from the original note were not included. [facility] Initial Evaluation Recording using [address] software for draft documentation of the visit was discussed with the patient/authorized help desk representative; all questions welcomed and answered. Patient/authorized help desk representative agreed to proceed Mansi Caro presents to [facility] at the request of No ref. provider found for evaluation of prolonged, > 28 days, symptoms attributed to COVID-19 infection. They have requested this consultation via eConsult and will be communicated to via the EMR or [place] Post Office Correspondence. HPI: Mansi Caro is a 70 year old female, accompanied by her (who is providing most of the history today) with primary symptoms as below Positive COVID-19 Test: yes Date of Positive Test: end of 2019/beginning of 2020, 2021 x 2, January 2025 Description of their course of COVID-19 illness 1. Symptoms began on , 2024 2. Hospitalization? No 3. Was the patient on oxygen? No 4. Was patient discharged on oxygen? No 5. Was there an ICU stay? No 6. Was the patient intubated? No 7. Were there any COVID-19 medications given? Not reported 8. Were there significant complications from the patients COVID-19 Illness? No 9. Has the patient received the COVID Vaccine? YES. Which vaccine? MODERNA COVID-19 Symptom Review Most significant symptoms: COVID-19 Infections: - Multiple COVID-19 infections: late 2019, early 2020, twice in 2021, and most recently in January 2025. 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 - attributes current symptoms to the most recent infection and some to past infections. Anosmia and Ageusia: - Onset in 2024. - Described as "mostly" complete loss of taste and smell. - Recent improvement in taste; some foods now taste "okay." - Significant weight loss (15 lbs) due to lack of appetite; current weight 118 lbs, down from 135 lbs. Cognitive Impairment: - Difficulty understanding speech and making decisions. - Short-term memory and recall issues; requires reminders to take medications. - History of CVA in 2008, resulting in aphasia and right-sided spasticity. - No recent formal cognitive rehabilitation or speech therapy. Fatigue: - Chronic fatigue exacerbated by recent pneumonia. - Nocturnal sleep described as "pretty good" with medication; no daytime naps. - Nocturnal oxygen use denied; no recent sleep study. Gastrointestinal Issues: - History of ischemic colitis; reports this is a recent developement and unsure if related to long COVID. - Recent upper and lower endoscopy revealed stenosis between stomach and small intestine; biopsy results pending. - Recent hospitalization for abdominal pain and constipation; required dilation of stenosis. - Taking iron supplements for anemia; prescribed by buckle sorter. Tremor: - Pre-existing tremor worsened recently; no tremor in right hand. - Neurologist prescribed medication for Parkinson's disease with no improvement. - History of nystagmus and spasticity; taking Baclofen and Clonazepam. Pulmonary Issues: - Recent pneumonia with ground-glass opacities on imaging. - Oxygen saturation drops to 83% with exertion; improving with physical therapy and breathing exercises. - Follow-up with oven stripper scheduled. Polypharmacy: - Previously on 25 medications; reduced to 13 with the help of a pharmacist. - Concerns about medication interactions contributing to cognitive impairment. Recent/previously completed testing since COVID-19 infection(s): EKG none on file ECHO none on file PFT 12/13/2024 (Care Everywhere) CXR 06/01/2025 (Care Everywhere) Established with the following specialists: Neuro CNR - Dr. Leyla Murphy/Cecilia Owens APRN.NIRMALA, last seen 06/29/2025 PM&R - Dr. Ghazala Gusman, last seen 05/17/2024 Psychiatry - [facility] Pulmonology - non-[facility] Review of Systems Constitutional: (+) fatigue, (+) weight loss, (-) insomnia Ears/Nose/Mouth/Throat: (+) anosmia, (+) ageusia Respiratory: (+) cough Gastrointestinal: (+) constipation Neurological: (+) brain fog, (+) tremor PAST MEDICAL HISTORY Diagnosis Date Anxiety state, unspecified Chronic depressive personality disorder Depression Hyperlipidemia PMH - PAST MEDICAL HISTORY OF ? epilepsy Smoking Stroke (HCC) Unspecified essential hypertension Essential hypertension Medication Review: Current Outpatient Medications Medication Sig escitalopram oxalate (LEXAPRO) 5 mg tablet Take 5 mg by mouth once daily. fluticasone (FLONASE ALLERGY RELIEF) 50 mcg/actuation nasal spray Use 1 spray in each nostril two times a day. ondansetron orally disintegrating (ZOFRAN ODT) 4 mg [...] mouth twice daily. (Patient taking differently: Take 40 mg by mouth once daily.) metFORMIN (GLUCOPHAGE) 500 mg tablet Take 500 mg by mouth once daily. rosuvastatin (CRESTOR) 5 mg ORAL Tab Take by mouth as directed. Wednesday, Wednesday, Wednesday No current facility-administered medications for this visit. Objective Findings: Vitals: BP 164/75 (BP Site: Right Arm, BP Position: Sitting, BP Cuff Size: Regular Adult) Pulse 93 Temp 36.9 C (98.4 F) (Temporal) Resp 20 SpO2 97% Initial Screening Questionaires review: 07/03/2025 COVID Symptoms Onset: 01/22/2025 PROMIS/NeuroQoL Score Percentiles 07/03/2025 10/23/2021 Physical Health Fatigue Percentile 3 10 Sleep Percentile 42 54 06/24/2025 06/06/2025 02/23/2025 PROMIS Global Health Scale Physical Health Percentile 1 2 1 Mental Health Percentile 0 2 5 Patient-reported Percentiles provide an indication of how a patient s score ranks in relation to the [place] general population. > 31st percentile is within normal limits or better * < 31st percentile is at least SD worse than population, which may be clinically relevant < 16th percentile is at least 1 SD worse than population and warrants attention 07/03/2025 06/06/2025 02/23/2025 PHQ-9 PHQ-2 Score 5 0 5 PHQ-9 Score 25 16 17 07/03/2025 06/06/2025 02/23/2025 JENNY - 2/7 SCORES JENNY-2 Score 6 5 4 JENNY-7 Score 10 10 Physical Examination: Physical Exam Vitals reviewed. Constitutional: General: She is not in acute distress. Appearance: Normal appearance. She is not ill-appearing, toxic-appearing or diaphoretic. HENT: Head: Normocephalic and atraumatic. Right Ear: External ear normal. Left Ear: External ear normal. Eyes: Conjunctiva/sclera: Conjunctivae normal. Cardiovascular: Rate and Rhythm: Regular rhythm. Heart sounds: Normal heart sounds. Pulmonary: Effort: Pulmonary effort is normal. No respiratory distress. Breath sounds: Normal breath sounds. No stridor. No wheezing, rhonchi or rales. Comments: Nasal cannula in place Chest: Chest wall: No tenderness. Skin: Coloration: Skin is not jaundiced or pale. Findings: No bruising or rash. Neurological: Mental Status: She is alert. Psychiatric: Mood and Affect: Mood normal. Behavior: Behavior normal. Assessment and Plan: 1. Chronic fatigue and malaise (R53.82) 2. Brain fog (R41.89) 3. 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 - Educated on multifactorial nature of post-viral fatigue and cognitive symptoms; discussed potential for exacerbation of pre-existing neurological deficits. - Recommended continuation of physical therapy and occupational therapy for deconditioning and endurance. - Advised formal cognitive screening with neurology or primary care to rule out other causes of cognitive impairment. - Discussed importance of sleep quality; advised follow-up with pulmonology to reassess nocturnal oxygenation and consider sleep study. - Reviewed potential impact of vitamin deficiencies; recommended lab evaluation for B12, D, folate, copper, zinc, chromium, manganese, omega levels, and thyroid function if not recently completed -- patient defers at this time. - Encouraged anti-inflammatory dietary measures and consideration of integrative medicine for holistic management. - Provided educational materials on energy conservation and pacing techniques. 4. Iron deficiency anemia, unspecified iron deficiency anemia type (D50.9) - Known iron deficiency anemia; currently managed with oral iron supplementation. - Advised coordination with gastroenterology and hematology to optimize iron therapy and minimize GI side effects. 5. History of stroke (Z86.73) 6. Aphasia (R47.01) - History of CVA in 2008 with residual aphasia and right-sided spasticity. - Advised continuation of speech therapy as part of cognitive rehabilitation program. 7. Tremor (R25.1) - Chronic tremor with recent worsening; currently under evaluation by neurology. - Advised continuation of neurology follow-up for further assessment and management. 8. Ischemic colitis (HCC) (K55.9) - Recent diagnosis of ischemic colitis with ongoing GI symptoms. - Advised continuation of GI follow-up for management of colitis and related symptoms. 9. Myocarditis, unspecified chronicity, unspecified myocarditis type ([facility]) (I51.4) - History of myocarditis following COVID-19 vaccination in 2019; currently stable with cardiac implant in place. - Advised continuation of cardiology follow-up for ongoing management. 10. Anosmia (R43.0) 11. Ageusia (R43.2) 12. 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 - Advised essential oil smell training protocol to stimulate olfactory nerve recovery. - Discussed use of miracle fruit graham to temporarily enhance taste perception and stimulate appetite. - Advised against stellate ganglion block at this time due to current respiratory status and oxygen dependence. - Provided educational materials on smell training and miracle fruit graham use. 13. Unintentional weight loss (R63.4) - Significant unintentional weight loss (15+ lbs) since most recent COVID-19 infection, likely multifactorial due to anosmia, ageusia, and deconditioning. - Advised nutritional support and monitoring to prevent further weight loss and promote recovery. 14. Respiratory failure with hypoxia, unspecified chronicity ([facility]) (J96.91) - Recent pneumonia with ongoing hypoxia requiring supplemental oxygen; improving with rehabilitation. - Advised continuation of respiratory therapy and consideration of pulmonary rehabilitation. - Encouraged deep breathing exercises to promote lung recovery and improvement of ground-glass opacities. - Advised follow-up with pulmonology for ongoing management of hypoxia and respiratory status. Patient presents with long COVID syndrome due to symptoms starting within 3 months of acute COVID infection and persisting since that time; discussed current understanding of long COVID in medical community is limited and or goal is symptom management. This means there is no approved curative treatment for long COVID and instead we will focus on providing tools and resources aimed towards symptom mitigation. - The patient and I reviewed available [facility] testing in detail. We discussed indications for testing and the benefits of results in directing the plan of care -- patient defers labs through our clinic at this time - The patient will follow up with consulted specialists and their PCP - Patient encouraged to continue following with established specialists - Discussed consults to Wellness, Geriatric medicine -- deferred at this time. The patient was informed of how [facility] functions. We are a referral service. As a referral service, we cannot determine work restrictions, complete FMLA/disability forms, or provide surgical clearance. The patient will have an initial visit as well as follow-up virtual visit(s) on an as needed basis in which all testing, imaging, and labs will be discussed. From there on it is expected that they continue to follow up with their PCP and the specialists established through this program. Patient may receive a follow-up call every 3 months for 1 year to monitor their progress. Return if symptoms worsen or fail to improve. Plan reviewed with patient, who verbalized understanding and is in agreement. I spent a total of 80 minutes on the date of the service which included preparing to see the patient, znve-vj-qtax patient care, completing clinical documentation, obtaining and/or reviewing separately obtained history, performing a medically appropriate examination, counseling and educating the patient/family/caregiver, communicating with other HCPs (not separately reported), independently interpreting results (not separately reported), and care coordination (not separately reported). Brendon Hurtado APRN.CNP July 10, 2025 10:00 AM CC: Marci Lopez DO (PCP) via [employer] fax. No referring provider defined for this encounter. documented in this encounter [facility] 07-10-2025 Note HNO ID: [id number] Author: LEONEL HURTADO APRN.CNP Service: ? Author Type: Nurse Practitioner Type: Progress Notes Filed: 07/10/2025 13:03 Note Text: COVID [facility] Initial Evaluation Recording using [address] software for draft documentation of the visit was discussed with the patient/authorized help desk representative; all questions welcomed and answered. Patient/authorized help desk representative agreed to proceed Mansi Caro presents to [facility] at the request of No ref. provider found for evaluation of prolonged, > 28 days, symptoms attributed to COVID-19 infection. They have requested this consultation via [employer] and will be communicated to via the EMR or [place] [employer] Correspondence. HPI: Mansi Caro is a 70 year old female, accompanied by her (who is providing most of the history today) with primary symptoms as below Positive COVID-19 Test: yes Date of Positive Test: end of 2019/beginning of 2020, 2021 x 2, January 2025 Description of their course of COVID-19 illness 1. Symptoms began on , 2024 2. Hospitalization? No 3. Was the patient on oxygen? No 4. Was patient discharged on oxygen? No 5. Was there an ICU stay? No 6. Was the patient intubated? No 7. Were there any COVID-19 medications given? Not reported 8. Were there significant complications from the patients COVID-19 Illness? No 9. Has the patient received the COVID Vaccine? YES. Which vaccine? MODERNA COVID-19 Symptom Review Most significant symptoms: COVID-19 Infections: - Multiple COVID-19 infections: late 2019, early 2020, twice in 2021, and most recently in January 2025. 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 - attributes current symptoms to the most recent infection and some to past infections. Anosmia and Ageusia: - Onset in 2024. - Described as "mostly" complete loss of taste and smell. - Recent improvement in taste; some foods now taste "okay." - Significant weight loss (15 lbs) due to lack of appetite; current weight 118 lbs, down from 135 lbs. Cognitive Impairment: - Difficulty understanding speech and making decisions. - Short-term memory and recall issues; requires reminders to take medications. - History of CVA in 2008, resulting in aphasia and right-sided spasticity. - No recent formal cognitive rehabilitation or speech therapy. Fatigue: - Chronic fatigue exacerbated by recent pneumonia. - Nocturnal sleep described as "pretty good" with medication; no daytime naps. - Nocturnal oxygen use denied; no recent sleep study. Gastrointestinal Issues: - History of ischemic colitis; reports this is a recent developement and unsure if related to long COVID. - Recent upper and lower endoscopy revealed stenosis between stomach and small intestine; biopsy results pending. - Recent hospitalization for abdominal pain and constipation; required dilation of stenosis. - Taking iron supplements for anemia; prescribed by buckle sorter. Tremor: - Pre-existing tremor worsened recently; no tremor in right hand. - Neurologist prescribed medication for Parkinson's disease with no improvement. - History of nystagmus and spasticity; taking Baclofen and Clonazepam. Pulmonary Issues: - Recent pneumonia with ground-glass opacities on imaging. - Oxygen saturation drops to 83% with exertion; improving with physical therapy and breathing exercises. - Follow-up with oven stripper scheduled. Polypharmacy: - Previously on 25 medications; reduced to 13 with the help of a pharmacist. - Concerns about medication interactions contributing to cognitive impairment. Recent/previously completed testing since COVID-19 infection(s): EKG none on file ECHO none on file PFT 12/13/2024 (Care Everywhere) CXR 06/01/2025 (Care Everywhere) Established with the following specialists: Neuro CNR - Dr. Leyla Murphy/Cecilia Owens APRN.FOUNDATION RELATIONS MANAGER, last seen 06/29/2025 PMANDR - Dr. Ghazala Gusman, last seen 05/17/2024 Psychiatry - non-[facility] Pulmonology - non-[facility] Review of Systems Constitutional: (+) fatigue, (+) weight loss, (-) insomnia Ears/Nose/Mouth/Throat: (+) anosmia, (+) ageusia Respiratory: (+) cough Gastrointestinal: (+) constipation Neurological: (+) brain fog, (+) tremor PAST MEDICAL HISTORY Diagnosis Date Anxiety state, unspecified Chronic depressive personality disorder Depression Hyperlipidemia PMH - PAST MEDICAL HISTORY OF ? epilepsy Smoking Stroke (HCC) Unspecified essential hypertension Essential hypertension Medication Review: Current Outpatient Medications Medication Sig escitalopram oxalate (LEXAPRO) 5 mg tablet Take 5 mg by mouth once daily. fluticasone (FLONASE ALLERGY RELIEF) 50 mcg/actuation nasal spray Use 1 spray in each nostril two times a day. ondansetron orally disintegrating (ZOFRAN ODT) 4 mg disintegrating tablet Take 4 mg by mouth as needed for nausea/vomiting. albuterol sulfate 90 mcg/ac (more content not included)... [facility] 07-10-2025 Instructions Leonel Hurtado APRN.FOUNDATION RELATIONS MANAGER - 07/10/2025 9:41 AM EDT Welcome to [facility]! The 'COV' represents SARS-CoV-2, also known as COVID-19. Our clinic's mission is to assess and guide individuals who are experiencing long-term effects of COVID-19 to care paths tailored to fit each person. We are a referral service. As a referral center for post-COVID related conditions, we cannot provide work, FMLA, disability or other forms, or surgical clearance. You will have an initial visit as well as follow-up virtual visit(s) as needed in which all [facility] testing, imaging, and labs will be discussed. From there on it is expected that you continue to follow up with your PCP and the specialists established through this program. You may receive follow-up calls every 3 months for 1 year to monitor your progress. You just had your initial visit with the [facility]! Next, you will be undergoing additional tests to further assess your current symptoms. Once you have these tests completed, you will have another visit to review these results. We will then direct you down the appropriate care path with a specialist for further treatment based on those results and your current symptoms. Fatigue resources: https://my.[facility].org/h ealt/symptoms/03884-llefzhr https://my.[facility].org/h ealt/diseases/51182-evjftrv-anl ybafqtxniegawf-ptngdea-qabgzsy-s pyxrbos-hg-ijl http://www.phsa.ca/mqxiyl-svky-f ite/Documents/post_covid-19_fati chelsie.pdf https://www.oxford[facility].nhs.uk/ wp-content/uploads//OH-09 0.14-Rhmw-RCQXX-Leaflet.pdf https://[employer]/wp-con tent/uploads//Using-spoon -imgbog-nsp-ehvztfo.pdf You may call [phone] to reach Wellness (Integrative medicine). We work with the following providers: Drs. Saba Fleming/Jose Luis Alvarez/Pina Lundberg/Antonio Seymour/Yoandy Staton. The providers work with LDN. Olfactory Training for Smell Disruption What if you could train yourself to smell again? That's the thinking behind olfactory training. -This is a safe, self-driven treatment with no side effects that has been helpful, especially in post-viral cases. -It utilizes what's called the odor prism: using primary odors to retrain the nose, relying on memory and experience, to train those nerves to come back to life. -Just as there are primary colors (red, blue and yellow), there are primary smells and each has a corresponding example that is typically used to represent it: 1. flowery (raul) 2. fruity (lemon) 3. aromatic (cloves or lavender) 4. resinous (eucalyptus) -With these four primary smells, we ask the patient to take each smell, usually in the form of an oil or scent stick, put it under their nose and deeply inhale that scent for 15-20 seconds two to three times a day. -And while you're inhaling, you try to think about and remember what roses smell like. You want to picture roses. -You are combining that visual imagery with the stimulation of an isolated scent. -After going through the process with that flowery scent, you repeat the same steps with the other three scents. -The exercise is repeated sbv-cn-nypuf times a day and it is possible to get an improvement in both objective and subjective smell tests at three months, six months and even up to a year. -In some situations, steroid sprays might be used, too, to cause an even higher improvement. Consider trying Flonase (available gmkh-ydr-xijjzue) 1 spray in each nostril once daily. Technique for nasal spray administration: First, look slightly down, breathe normally, you do not need to sniff while you spray. To use the nose spray, place the tip in your nose with the opposite hand (left hand, right side of nose, right hand, left side of nose), and aim or point toward the outside of the nose. Do not sniff or snort medication afterwards as this can cause most of the medication to be swallowed. Rather, dab your nose with a tissue if any runs out. Miracle Fruit Berries for Taste Disruption Taste changes in patients who have long COVID are common and can reduce quality of life. So what if you could change your taste receptors and potentially increase the palatability of certain foods? Jamalum yanci is a [place] plant that produces red berries commonly known as miracle fruit. A protein (Miraculin) found in these berries binds to the sweet taste receptors of the tongue. When this occurs it profoundly changes food taste profiles for a short duration, masking unpleasant tastes, and increasing the palatability of certain foods. This causes many sour, acidic foods to taste sweet. The effects of this fruit are short lived and last anywhere from 30 minutes to 2 hours at a time before wearing off. While there are no studies in the effectiveness of this in long COVID patients, In a small study of cancer patients with altered taste from chemotherapy, all participants reported improvements in taste after consuming miracle fruit. Specifically in foods that tasted metallic or "bland". Miracle fruit berries can be bought on [employer]. Stomach ache and throat discomfort have been reported from taking the berries. If this occurs stop taking the miracle fruit. Do not take if you are allergic to this fruit. Stellate Ganglion Block for Taste/Smell Disruption The stellate ganglion block has been found to improve the sense of smell and taste as well as a number of other Long COVID symptoms in some patients. This has been studied and documented in a case series (Jer et al. Stellate ganglion block reduces symptoms of Long COVID: A case series. J Neuroimmunology, 2021). [facility]'s Pain Management office is offering this intervention to patients who meet certain criteria, including completing an evaluation with ENT to rule out and treat other possible causes of taste/smell changes (polyps, lesions, severe chronic sinus congestion/inflammation, etc). [facility] specifically requests at minimum a nasal endoscopy (UPSIT test also preferred if available in ENT office). For more information on this intervention: https://www.[employer]/health/h ealth-news/cbsq-upuyr-djvg-taste -uxrvo-qdmqzunhk-pckylzuyt-rcna7 5034 https://my.[facility].org/ ealt/treatments/83363-zjskgxti- ganglion-block You will need at minimum a nasal endoscopy, plus UPSIT test if available from your evaluation with ENT. If seeing ENT outside of [facility], we will need a copy of their notes/assessment with details of requested testing (ok to send via [employer] of fax to [phone]). YOU MUST COMPLETE ENT EVALUATION BEFORE YOU CAN BE REFERRED TO PAIN MANAGEMENT. Overall: - Continue your outpatient physical therapy program focusing on endurance, conditioning, gait training, and balance exercises to rebuild strength after pneumonia and deconditioning. - Arrange for ongoing speech therapy in your rehab facility and at home to support cognitive rehabilitation; ask your rehab team to include speech/cognitive exercises in your daily plan. - Request a formal cognitive screening (e.g., MoCA or similar) through your neurologist or primary care provider to assess and monitor any changes in memory, decision-making, and word finding. - Practice cognitive rehabilitation exercises and pacing techniques from the printed materials provided to help manage your brain fog and fatigue--use energy-conservation strategies throughout your day. - Discuss your sleep and nighttime oxygen needs with your oven stripper; consider a sleep study or overnight oximetry to ensure you re getting adequate rest and oxygen support while sleeping. - Continue your current iron and vitamin B12 supplements as prescribed; before adding vitamin D or other mineral supplements (copper, zinc, chromium, manganese, omega-3), confirm approval and dosage with your community outreach worker to avoid GI side effects. - At your next lab draw, share the provided vitamin/mineral panel list with your primary care or hematology team and ask them to include checks for B12, D, ferritin, CBC, kidney and liver function, thyroid, and the other nutrients listed. - Perform smell-training daily using essential oils per the protocol in your packet; you may also try miracle-fruit berries before meals to enhance taste and support appetite and weight recovery. - If taste and smell do not improve after essential-oil training and ENT clearance, discuss a stellate ganglion block with a pain-utilization management rn once your breathing is stable and you no longer require oxygen at rest. - Consider a referral to Integrative Medicine through our office if you wish to explore low-dose naltrexone (LDN) or other anti-inflammatory, holistic approaches--contact us to initiate that referral. - If you d like a specialist review of your medications (polypharmacy) and further cognitive assessment, let us know and we can coordinate a referral to a geriatric medicine provider. - Keep all your scheduled specialty appointments (neurology for tremor, GI for stenosis follow-up, hematology for iron management, pulmonology, and psychiatry). - Use the pacing and energy-management tips in your packet to balance activity and rest and reduce the impact of post-viral fatigue on your daily life. - The [facility] Team documented in this encounter [facility] 07-04-2025 Note [facility] 07-04-2025 Progress note Note Date/Time July 04, 2025 9:00am [facility] Medical Records Department [address] [place] [id number] Progress Note - Hospitalist 07/04/25 0857 MR#: [id number] Acct: [id number] Name: MANSI CARO Rep #:[id number] : [id number] 70 From: Camacho renner MD PCP: Marci Lopez DO Status:ADM I NO Location: MS3 WX639-0 Subjective Subjective Doing well, started on a little bit of oxygen overnight. Objective Data Objective Data Vital Signs: Vital Signs Temp Pulse Resp BP Pulse Ox O2 Del Method O2 Flow Rate 98.0 F 63 15 134/58 H 100 Nasal Cannula 2 07/04/25 03:42 07/04/25 03:42 07/04/25 03:42 07/04/25 03:42 07/04/25 03:42 07/04/25 03:51 07/04/25 03:51 Oxygen Flow Rate (L/min) 2 Oxygen Delivery Method Nasal Cannula Weight: 118 lb 9.739 oz Body Mass Index (BMI) 18.0 Intake & Output: Intake and Output for Last 24 Hours 07/03/25 07/04/25 07/05/25 03:59 03:59 03:59 Intake Total 1700 / 1700 690 / 690 Balance 1700 / 1700 690 / 690 Medical Nutrition Assessment Dietitian: Malnutrition Criteria Met Start: 07/02/25 14:18 Freq: Status: Active Protocol: Document 07/02/25 14:18 SLA (Rec: 07/02/25 14:18 SLA [id number]) Nutrition Malnutrition Evidence of Yes Malnutrition Exists Malnutrition (severe Acute Illness/Injury ): Evidenced By Suboptimal Energy Intake (Severe),Weight Loss (Severe), Physical Changes (Moderate) Clinical Problem Acute Disease or Injury Related Malnutrition Etiology related to issues w/ confusion/weakness and inadequate energy intake Signs/Symptoms as evidenced by po intake meeting <75% of est nutritional needs, unplanned wt loss of 7.6% x 3 weeks and fat/muscle wasting throughout body Status Active Problem Recommendation Dietitian Will continue liberal Regular diet w/ Ensure Plus High Recommendations/ Protein tid w/ meals as ordered - consistency per DATA WAREHOUSE MANAGER Changes Will provide fortified foods at meals as able to help increase calorie/protein density of foods being consumed. Rec appetite stimulant to help encourage increased po intake at meals May need to consider supplemental nutrition supportif po intake fails to improve and/or wt loss continuesif in accordance w/ pt/family wishes. Lab / Micro Data 07/04/25 05:25 07/03/25 04:49 Labs: Laboratory Results - last 24 hr 07/04/25 05:25: WBC 3.4 L, RBC 3.30 L, Hgb 9.9 L, Hct 30.5 L, MCV 92.4, MCH 30.0, MCHC 32.5, RDW Std Deviation 45.9 H, RDW Coeff of Edita 13.4, Plt Count 151,MPV 11.0, Immature Gran % (Auto) 0.300, Neut % (Auto) 38.0 L, Lymph % (Auto) 44.0 H, Ogle % (Auto) 13.0 H, Eos % (Auto) 4.4, Baso % (Auto) 0.3, Absolute Neuts (auto) 1.3 L, Absolute Lymphs (auto) 1.49, Nucleated RBC % 0 Physical Exam Narrative General: Alert, Oriented x3, Cooperative, No apparent distress HEENT: Atraumatic, PERRLA, EOMI, Normocephalic Oral: Moist Mucosa Neck: Supple, No JVD Lungs: Diminished, Normal air movement, no rhonchi, No wheeze, No rales Cardiovascular: Regular rate, Regular Rhythm, Normal S1, Normal S2, No murmurs Abdomen: Soft, Non Tender, Non-Distended, No Hepato-splenomegaly Extremities: No edema, Capillary Refill Less than 3 Seconds Skin: No rashes, No breakdown Musculoskeletal: No Tenderness to Palpation of Joints or Extremities Neurological: No focal neurological deficits, moves all extremities, sensation intact Psych/Mental Status: Flat Assessment & Plan Assessment/Plan (1) Failure to thrive: (2) Protein calorie malnutrition: PLAN: Plan 1. Adult failure to thrive with protein calorie malnutrition ? PT/OT ? Case management for discharge planning ? Appreciate nutrition's assistance ? Awaiting pre-CERT, delaying discharge due to awaiting insurance approval and facility acceptance 2. History of CVA involving the left MCA/CAD/essential HTN/HLD/chronic systolicCHF ? Continue with her home blood pressure medications ? Continue with her home Lasix ? Continue with her home Crestor ? 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 COPD ? Not in exacerbation ? Continue with inhalers 4. DM2 ? Continue with her home metformin ? Will monitor and make adjustments as necessary 5. Anxiety/depression ? Stable ? Continue with her home medications 6. GERD ? Stable ? Continue with PPI DVT: Lovenox Charges/Coding Visit Charges Inpatient E&M: 94530 Subs Hosp L2 07/04/25 0900 <Electronically signed by Camacho Aguilar MD> Cosigner Signature (if applicable): CC: ~ Signed [facility] Work Phone: 1(387) 118-995308-12-2025 Progress note Author Camacho Aguilar [facility] Note Date/Time July 03, 2025 10 :54am [facility] Medical Records Department [address] [place] [address] Progress Note - Hospitalist 07/03/25 1052 MR#: [id number] Acct: [id number] Name: MANSI CARO Rep #:[id number] : 1955 70 From: Camacho renner MD PCP: Marci Lopez DO Status:ADM I NO Location: MS3 PT793-1 Subjective Subjective Feels little better than when she came in but still fairly weak and has poor appetite as she says food does not taste good. is investigating complications from long COVID Objective Data Objective Data Vital Signs: Vital Signs Temp Pulse Resp BP Pulse Ox O2 Del Method O2 Flow Rate 98.1 F 65 15 129/63 H 94 Room Air 2 07/03/25 02:50 07/03/25 02:50 07/03/25 02:50 07/03/25 02:50 07/03/25 02:50 07/03/25 08:00 07/02/25 04:00 Oxygen Flow Rate (L/min) 2 Oxygen Delivery Method Room Air Weight: 118 lb 9.739 oz Body Mass Index (BMI) 18.0 Intake & Output: Intake and Output for Last 24 Hours 07/02/25 07/03/25 07/04/25 03:59 03:59 03:59 Intake Total 1700 / 1700 Balance 1700 / 1700 Medical Nutrition Assessment Dietitian: Malnutrition Criteria Met Start: 07/02/25 14:18 Freq: Status: Active Protocol: Document 07/02/25 14:18 SLA (Rec: 07/02/25 14:18 [id number]) Nutrition Malnutrition Evidence of Yes Malnutrition Exists Malnutrition (severe Acute Illness/Injury ): Evidenced By Suboptimal Energy Intake (Severe),Weight Loss (Severe), Physical Changes (Moderate) Clinical Problem Acute Disease or Injury Related Malnutrition Etiology related to issues w/ confusion/weakness and inadequate energy intake Signs/Symptoms as evidenced by po intake meeting <75% of est nutritional needs, unplanned wt loss of 7.6% x 3 weeks and fat/muscle wasting throughout body Status Active Problem Recommendation Dietitian Will continue liberal Regular diet w/ Ensure Plus High Recommendations/ Protein tid w/ meals as ordered - consistency per DATA WAREHOUSE MANAGER Changes Will provide fortified foods at meals as able to help increase calorie/protein density of foods being consumed. Rec appetite stimulant to help encourage increased po intake at meals May need to consider supplemental nutrition supportif po intake fails to improve and/or wt loss continuesif in accordance w/ pt/family wishes. Lab / Micro Data 07/03/25 04:49 07/03/25 04:49 Labs: Laboratory Results - last 24 hr 07/03/25 04:49: WBC 3.3 L, RBC 3.09 L, Hgb 9.3 L, Hct 28.7 L, MCV 92.9, MCH 30.1, MCHC 32.4, RDW Std Deviation 45.5 H, RDW Coeff of Edita 13.4, Plt Count 155,MPV 11.1, Immature Gran % (Auto) 0.000, Neut % (Auto) 39.9 L, Lymph % (Auto) 43.3 H, Ogle % (Auto) 13.1 H, Eos % (Auto) 3.4, Baso % (Auto) 0.3, Absolute Neuts (auto) 1.3 L, Absolute Lymphs (auto) 1.42, Nucleated RBC % 0, Sodium 139, Potassium 3.7, Chloride 106, Carbon Dioxide 25.8, Anion Gap 7, BUN 10, Creatinine 0.91, Estim Creat Clear Calc 47.46 L, Est GFR (MDRD) Non-Af 67, BUN/Creatinine Ratio 10.9, Glucose 86, Calcium 8.2 Physical Exam Narrative General: Alert, Oriented x3, Cooperative, No apparent distress HEENT: Atraumatic, PERRLA, EOMI, Normocephalic Oral: Moist Mucosa Neck: Supple, No JVD Lungs: Diminished, Normal air movement, scattered rhonchi, No wheeze, No rales Cardiovascular: Regular rate, Regular Rhythm, Normal S1, Normal S2, No murmurs Abdomen: Soft, Non Tender, Non-Distended, No Hepato-splenomegaly Extremities: No edema, Capillary Refill Less than 3 Seconds Skin: No rashes, No breakdown Musculoskeletal: No Tenderness to Palpation of Joints or Extremities Neurological: No focal neurological deficits, moves all extremities, sensation intact Psych/Mental Status: Flat Assessment & Plan Assessment/Plan (1) Failure to thrive: (2) Protein calorie malnutrition: PLAN: Plan 1. Adult failure to thrive with protein calorie malnutrition ? PT/OT ? Case management for discharge planning ? Appreciate nutrition's assistance 2. History of CVA involving the left MCA/CAD/essential HTN/HLD/chronic systolicCHF ? Continue with her home blood pressure medications ? Continue with her home Lasix ? Continue with her home Crestor ? 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 COPD ? Not in exacerbation ? Continue with inhalers 4. DM2 ? Continue with her home metformin ? Will monitor and make adjustments as necessary 5. Anxiety/depression ? Stable ? Continue with her home medications 6. GERD ? Stable ? Continue with PPI DVT: Lovenox Charges/Coding Visit Charges Inpatient E&M: 94939 Subs Hosp L2 07/03/25 1054 <Electronically signed by Camacho Aguilar MD> Cosigner Signature (if applicable): CC: ~ Signed [facility] Work Phone: 1(423) 893-373208-11-2025 Progress note Author Camacho Aguilar [facility] Note Date/Time July 02, 2025 10 :07am [facility] Medical Records Department [address] [place] [address] Progress Note - Hospitalist 07/02/25 0951 MR#: [id number] Acct: [id number] Name: MANSI CARO Rep #:[id number] : 1955 70 From: Camacho renner MD PCP: Marci Lopez DO Status:ADM I NO Location: [place] [address] Subjective Subjective Doing well, no issues overnight Objective Data Objective Data Vital Signs: Vital Signs Temp Pulse Resp BP Pulse Ox O2 Del Method O2 Flow Rate 98.6 F 65 16 113/59 L 95 Room Air 2 07/02/25 07:58 07/02/25 07:58 07/02/25 07:58 07/02/25 07:58 07/02/25 07:58 07/02/25 07:58 07/02/25 04:00 Oxygen Flow Rate (L/min) 2 Oxygen Delivery Method Room Air Weight: 118 lb 9.739 oz Body Mass Index (BMI) 18.0 Intake & Output: Intake and Output for Last 24 Hours 07/01/25 07/02/25 07/03/25 03:59 03:59 03:59 Intake Total 1000 / 1000 Balance 1000 / 1000 Lab / Micro Data 07/01/25 17:12 07/01/25 17:12 Labs: Laboratory Results - last 24 hr 07/01/25 17:12: WBC 4.0 L, RBC 3.46 L, Hgb 10.3 L, Hct 31.8 L, MCV 91.9, MCH 29.8, MCHC 32.4, RDW Std Deviation 44.8 H, RDW Coeff of Edita 13.2, Plt Count 192,MPV 10.6, Immature Gran % (Auto) 0.200, Neut % (Auto) 49.2, Lymph % (Auto) 34.9,Ogle % (Auto) 13.2 H, Eos % (Auto) 2.0, Baso % (Auto) 0.5, Absolute Neuts (auto)2.0, Absolute Lymphs (auto) 1.40, Nucleated RBC % 0, D-Dimer Quant (PE/DVT) 1.39H*, Sodium 140, Potassium 3.6, Chloride 108, Carbon Dioxide 24.6, Anion Gap 8, BUN 12, Creatinine 0.90, Estim Creat Clear Calc 50.57, Est GFR (MDRD) Non-Af 68,BUN/Creatinine Ratio 13.2, Glucose 100 H, Calcium 8.1, Troponin T High Sens 11, NT pro BNP II 948 H 07/01/25 19:30: Troponin T Hi Sens 2 Hr 12 07/01/25 21:40: Troponin T Hi Sens 4Hr 15 H Radiography Diagnostic Testing: Radiology Impression Chest X-Ray 07/01/25 17:37 IMPRESSION: Improvement in the bibasilar pulmonary opacities, compatible with pneumonitis/pneumonia. Reading Location: [facility] Chest CTA 07/01/25 18:03 IMPRESSION: 1. No evidence of pulmonary embolism. 2. Stable ground-glass opacities throughout the dependent and bibasilar lungs, compatible with pneumonitis/pneumonia. Clinical correlation recommended. Reading Location: [facility] Physical Exam Narrative General: Alert, Oriented x3, Cooperative, No apparent distress HEENT: Atraumatic, PERRLA, EOMI, Normocephalic Oral: Moist Mucosa Neck: Supple, No JVD Lungs: Diminished, Normal air movement, scattered rhonchi, No wheeze, No rales Cardiovascular: Regular rate, Regular Rhythm, Normal S1, Normal S2, No murmurs Abdomen: Soft, Non Tender, Non-Distended, No Hepato-splenomegaly Extremities: No edema, Capillary Refill Less than 3 Seconds Skin: No rashes, No breakdown Musculoskeletal: No Tenderness to Palpation of Joints or Extremities Neurological: No focal neurological deficits, moves all extremities, sensation intact Psych/Mental Status: Normal Affect, Appropriate Assessment & Plan Assessment/Plan (1) Failure to thrive: (2) Protein calorie malnutrition: PLAN: Plan 1. Adult failure to thrive with protein calorie malnutrition ? PT/OT ? Case management for discharge planning 2. History of CVA involving the left MCA/CAD/essential HTN/HLD/chronic systolicCHF ? Continue with her home blood pressure medications ? Continue with her home Lasix ? Continue with her home Crestor ? 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 COPD ? Not in exacerbation ? Continue with inhalers 4. DM2 ? Continue with her home metformin ? Will monitor and make adjustments as necessary 5. Anxiety/depression ? Stable ? Continue with her home medications 6. GERD ? Stable ? Continue with PPI DVT: Lovenox Charges/Coding Visit Charges Inpatient E&M: 18862 Subs Hosp L2 07/02/25 1007 <Electronically signed by Camacho Aguilar MD> Cosigner Signature (if applicable): CC: ~ Signed [facility] Work Phone: 1(319) 631-615208-10-2025 Discharge summary Author Bossman Sanders [facility] Note Date/Time July 01, 2025 9: 54pm [facility] Medical Records Department [address] [address] Emergency Department Summary 07/01/25 MR#: [id number] Acct: [id number] Name: MANSI CARO Rep #:[id number] : 1955 70 From: Bossman Sanedrs DO PCP: John,Marci L. DO Status:ADM I NO Location: MS3 [id number] HPI History of Present Illness Chief Complaint: Shortness of Breath Detail of Chief Complaint: Shortness of breath Informant: patient Narrative Narrative: Patient presents with shortness of breath that started about an hour ago but hasbeen chronic. She normally wears home O2. Normally wears 2 L. Patient had recent admission in May for 8 days for pneumonia. She was told on CT scan at that time she may have a touch of COPD. She is not currently a smoker but she did have remote history of smoking. Patient denies chest pain. She has an occasional cough that at times will bring up some yellow phlegm. She has had nofever. Denies recent travel or surgery. Currently not anticoagulated. [facility] Medical History Pneumonia Dyspnea Back pain History [...] (patent foramen ovale) Cardiac resynchronization therapy defibrillator ([employer] RE[employer]-D) in place Myocarditis Hyperlipidemia Hypertension Home Medications [...] 0.125 mg tablet 0.125 mg PO TID DE N dyspepsia #90 06/04/25 Unknown Rx tabs lisinopril 10 mg tablet 5 mg (1/2 x 10 mg) PO DAILY #30 06/11/25 Unknown Rx tabs Allergy/AdvReac Type Severity Reaction Status Date / Time No Known Allergies Allergy Verified 07/01/25 16:40 Family History Father Heart disease Myocardial infarction [...] social history: - Song ROS ROS ED Review of Systems ROS Unobtainable: other Constitutional Constitutional ED: Reports lethargy; Denies chills, fever(s), sweats or weight loss Eyes Eyes: Denies blurry vision, change in vision or diplopia ENT ENT ED: Denies rhinorrhea or sore throat Cardiovascular Cardiovascular: Denies chest pain, orthopnea or racing heartbeat Respiratory/Chest Respiratory/Chest: Reports cough, dyspnea and dyspnea on exertion; Denies orthopnea or sputum Gastrointestinal Gastrointestinal: Denies abdominal pain, diarrhea, nausea [...] urticaria EXAM Physical Exam Const Vital Signs: 07/01/25 16:38 Temperature 98.3 F Temperature Source Oral Pulse Rate 78 Respiratory Rate 18 Blood Pressure 149/72 H Blood Pressure Mean 97 Pulse Ox 98 Oxygen Delivery Method Nasal Cannula Oxygen Flow Rate (L/min) 3 Positive well nourished and well developed General Appearance ED: well developed and NAD HEENT Reports TM's clear and moist mucous membranes normocephalic and atraumatic; Negative for trauma or tenderness Tympanic Membrane ED: Yes TM's clear Eyes PERRL and EOMs intact bilaterally General Eye ED: Negative for pale conjunctiva or scleral icterus Neck no lymphadenopathy, supple and no JVD General: Negative for tenderness Chest Wall inspection of chest normal and palpation of chest normal Chest: Negative for tenderness Resp normal respiratory effort and clear to auscultation bilaterally Resp Narrative: Occasional faint wheeze on exam. There is no conversational dyspnea. No significant tachypnea. No accessory muscle use or retractions. Effort and Inspection: Negative for respiratory distress or pain with movement Auscultation: wheezes; Negative for rhonchi or diminished lung sounds Cardio regular rate, regular rhythm, S1 normal heart sound, S2 normal heart sound and no murmurs Peripheral Pulses: pulses 2+ throughout GI normal to inspection, nondistended, normoactive bowel sounds, soft to palpation,non-tender, non-distended and no masses Back/Spine no CVA tenderness and no thoracic nor lumbar tenderness Extremity normal to inspection General Extremety ED: Negative for edema General Extremity: Negative for edema Neuro oriented x3, CN's II-XII intact bilaterally, no sensory deficits noted and gait normal Sensorium / Orientation: awake, alert, oriented to person, oriented to place andoriented to time Motor Exam: strength 5/5 throughout and strength abnormal Psych mental status grossly normal Skin no rashes or lesions noted and no wounds Discharge Plan Triage Chief Complaint: Shortness of Breath ED Provider: Bossman Sanders Dx/Rx/DC Orders Prescriptions: No Action furosemide 20 mg tablet [...] mg PO TID PRN PRN (Reason: pain) lisinopril 10 mg Tablet 5 mg PO DAILY Qty: 30 0RF Rx Instructions: Hold for SBP less than 130 mmHg hyoscyamine sulfate 0.125 mg tablet 0.125 mg PO TID PRN (Reason: dyspepsia) Qty: 90 2RF Primary Care Provider: Marci Lopez Referrals: Marci Lopez DO [Primary Care Provider] - Print Language: Puerto Rican What to do if you have Problems For any increased pain, shortness of breath, bleeding, nausea or vomiting, chestpain, or any unexpected problems, contact your Primary Care Provider. Call [facility] ([phone]) or report to the closest Emergency Room. Call 911 if necessary. 07/01/252153 <Electronically signed by Bossman Sanders DO> Cosigner Signature (if applicable): CC: Marci Lopez DO ~ Signed [facility] Work Phone: [phone]) 789-841508-10-2025 History and physical note Author Jose Royal [facility] Note Date/Time July 01, 2025 7: 33pm [facility] Medical Records Department [address] [place] [address] H&P Exam - Hospitalist 07/01/251926 MR#: [id number] Acct: [id number] Name: MANSI CARO Rep #:[id number] : 1955 70 From: Jose Royal DO PCP: Marci Lopez DO Status:REG E R Location: ED [facility] Date of Service: 07/01/25 Chief Complaint: weakness. HPI Narrative MANSI CARO, is a 70 F who presents with weakness and shortness of breath. Patient was admitted from the to 11 June. Patient was found to have pneumonia and was discharged with Levaquin. 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 Per the , patient was doingtoo well to go to longterm facility so went home. While at home she has gradually regressed and is weaker. She has lost roughly 10 pounds. Over the past week. States that things do not taste good. She was checked for COVID last admission which was negative. The change in her taste and smell has happened recently after this most recent illness. But because of her weakness, and weight loss she was brought to the emergency room and the is exasperated and not able to safely care for her at this time. [facility] Medical History Duodenal stenosis Pneumonia Dyspnea Back pain History of Holter [...] (patent foramen ovale) Cardiac resynchronization therapy defibrillator ([employer]P-D) in place Myocarditis Hyperlipidemia Hypertension Home Medications [...] 0.125 mg tablet 0.125 mg PO TID DE N dyspepsia #90 06/04/25 Unknown Rx tabs lisinopril 10 mg tablet 5 mg (1/2 x 10 mg) PO DAILY #30 06/11/25 Unknown Rx tabs albuterol sulfate 90 mcg/actuation 1 puff inhalation Q 6H PRN PRN 07/01/25 Unknown History aerosol inhaler shortness of breath or wheez ing Allergy/AdvReac Type Severity Reaction Status Date / Time No Known Allergies Allergy Verified 07/01/25 16:40 Family History Father Heart disease Myocardial infarction [...] home: Yes additional social history: - Song Felix Complains of short of breath but is on her percent on nasal cannula. All reviewof systems were negative except as mentioned above in the history of present illness and the other review of systems. Vital Signs Vital Signs Vital Signs: 07/01/25 16:38 07/01/25 16:38 07/01/25 17:05 Temperature 36.8 C Temperature Source Oral Pulse Rate 78 Respiratory Rate 18 Respiratory Effort Normal Non-Labored Respiratory Depth Normal Respiratory Pattern Normal Blood Pressure 149/72 H Blood Pressure Mean 97 Pulse Ox 98 Oxygen Delivery Method Nasal Cannula Room Air Room Air Oxygen Flow Rate (L/min) 3 07/01/25 17:16 07/01/25 17:58 07/01/25 18:00 Temperature Temperature Source Pulse Rate 71 103 H 87 Respiratory Rate 18 14 25 H Respiratory Effort Respiratory Depth Respiratory Pattern Normal Blood Pressure Blood Pressure Mean Pulse Ox Oxygen Delivery Method Oxygen Flow Rate (L/min) 07/01/25 19:00 07/01/25 19:16 Temperature 36.8 C 36.8 C Temperature Source Oral Pulse Rate 83 70 Respiratory Rate 22 H 22 H Respiratory Effort Respiratory Depth Respiratory Pattern Blood Pressure 172/67 H 172/67 H Blood Pressure Mean 102 102 Pulse Ox 100 100 Oxygen Delivery Method Nasal Cannula Oxygen Flow Rate (L/min) 3 Weight Weight: 56.699 kg Body Mass Index (BMI) 19.0 Physical Exam Const alert and no apparent distress Constitutional Narrative: No respiratory distress. No conversational dyspnea. No tachypnea. HEENT normocephalic and head/scalp atraumatic HEENT Narrative: Mucous membranes moist. No evidence of any thrush. No oropharyngeal lesions. Resp normal respiratory effort and no retractions Resp Narrative: Bibasilar crackles Cardio regular rate, regular rhythm, S1 normal heart sound and S2 normal heart sound GI normal to inspection, nondistended, normoactive bowel sounds and soft to palpation Extremity normal to inspection Neuro Sensorium / Orientation: awake and alert Psych affect normal Results Lab / Micro Data 07/01/25 17:12 07/01/25 17:12 Labs: Laboratory Results - last 24 hr 07/01/25 17:12: WBC 4.0 L, RBC 3.46 L, Hgb 10.3 L, Hct 31.8 L, MCV 91.9, MCH 29.8, MCHC 32.4, RDW Std Deviation 44.8 H, RDW Coeff of Edita 13.2, Plt Count 192,MPV 10.6, Immature Gran % (Auto) 0.200, Neut % (Auto) 49.2, Lymph % (Auto) 34.9,Ogle % (Auto) 13.2 H, Eos % (Auto) 2.0, Baso % (Auto) 0.5, Absolute Neuts (auto)2.0, Absolute Lymphs (auto) 1.40, Nucleated RBC % 0, D-Dimer Quant (PE/DVT) 1.39H*, Sodium 140, Potassium 3.6, Chloride 108, Carbon Dioxide 24.6, Anion Gap 8, BUN 12, Creatinine 0.90, Estim Creat Clear Calc 50.57, Est GFR (MDRD) Non-Af 68,BUN/Creatinine Ratio 13.2, Glucose 100 H, Calcium 8.1, Troponin T High Sens 11, NT pro BNP II 948 H EKG Initial EKG: Attestation: I personally reviewed and interpreted this EKG as follows: Prior EKG tracings: available for review (Ventricular paced rhythm) Imaging Radiology Impression Chest X-Ray 07/01/25 17:37 IMPRESSION: Improvement in the bibasilar pulmonary opacities, compatible with pneumonitis/pneumonia. Reading Location: [facility] Chest CTA 07/01/25 18:03 IMPRESSION: 1. No evidence of pulmonary embolism. 2. Stable ground-glass opacities throughout the dependent and bibasilar lungs, compatible with pneumonitis/pneumonia. Clinical correlation recommended. Reading Location: [facility] Assessment & Plan Assessment/Plan (1) Failure to thrive: PLAN: Patient has declined since being discharged late last month. Plan is for PT OT evaluate and treat. Case management to assist on disposition. does not feel he can safely care for her at this time. (2) Protein calorie malnutrition: PLAN: Weight is down about a kilogram in half since last admission. Will start supplements. Consult nutrition for further recommendations. PLAN: Plan COPD: Not in exacerbation. Patient does feel short of breath but she is 100%. Anemia: Stable. Continue with ferrous sulfate. VTE prophylaxis with enoxaparin CODE STATUS: Addressed with the patient and her . Patient is to be full code. Charges/Coding Visit Charges Inpatient E&M: 48912 Init Hosp L2 07/01/251932 <Electronically signed by Jose Royal DO> Cosigner Signature (if applicable): CC: Dr. Jose Royal DO; Marci Lopez DO~ Signed [facility] Work Phone: 1(176) 248-394508-10-2025 Radiology Diagnostic study [facility]08-10-2025 Radiology Diagnostic study [facility]08-08-2025 NoteHNO ID: [id number] Author: CECILIA OWENS APRN.FOUNDATION RELATIONS MANAGER Service: ? Author Type: Nurse Practitioner Type: Progress Notes Filed: 06/29/2025 16:44 Note Text: [facility] - FOLLOW UP EVALUATION Primary Movement Disorders Neurologist: Leyla Murphy MD Primary Movement Disorders RICARDO: Marci Lopez DO [address] [facility] [id number] Dear Marci Lopez, DO: I had the pleasure of seeing Ms. Caro for follow-up today. As you know she is a 70 year old right-handed female with a history of left hand tremor since 2021. She is seen with her . Subjective Previous Plan- 02/27/2025 Visit: - Start taking Ingrezza 40 mg daily for mouth movements; prescription sent to [facility]. Once this is controlled we [...] today. She was in the hospital in [place] for pneumonia in February. Looking into long [...] daily. (Patient taking d (more content not included)...[facility] 06-19-2025 History of Present illness Narrative* Michel Ibrahim - 06/19/2025 11:08 AM EDT Discontinuation Assessment completed for the medication Austedo XR. Patient no longer requires [facility] Patient Management Program Services at this time for this medication. Michel Ibrahim [facility] Neurology, Cardiology & Infectious Disease [facility]2025 NoteHNO ID: [id number] Author: ?, ?, ? Service: ? Author Type: ? Type: Progress Notes Filed: 06/19/2025 11:11 Note Text: Discontinuation Assessment completed for the medication Austedo XR. Patient no longer requires [facility] Patient Management Program Services at this time for this medication. Michel Ibrahim CPhT Neurology, Cardiology AND Infectious Disease [facility] Telephone encounter Note* Telephone Encounter - Dannie Barros RN - 06/16/2025 4:11 PM EDT S: Patient's home health Katlyn called the [...] weeks) Protocols used: Abdominal Pain - ADULT-AH [facility] [id number] Miscellaneous Notes* Telephone Encounter - Dannie Barros RN - 06/16/2025 4:11 PM EDT S: Patient's home health Katlyn called the [...] Abdominal Pain - ADULT-AH documented in this [id number] Discharge summary Author Ganesh Kiran [facility] Note Date/Time June 11, 2025 12:0 8pm [facility] Medical Records Department [address] [place] [address] Discharge Summary 06/11/25 1206 MR#: [id number] Acct: [id number] Name: MANSI CARO Rep #:[id number] 40 : 1955 70 From: Ganesh Mera PCP: Marci Lopez DO Status:ADM I N Location: [place] [address]-1 Providers Date of Admission: 06/02/25 Date of Discharge: 06/11/25 Primary Care Physician: Dr. Marci Lopez, Consultations 06/06/25 13:36 Consult: Gastroenterology Routine Consulting Provider: Friend,Shan Reason for Consult: N/V, Duodenal stenosis, last [...] further said she had outside PFT in [place] by oven stripper. 06/07: On levofloxacin. 06/09: Discontinue levofloxacin. Had [...] of the bed: Discussed with the patient, welfare case worker. Continue PT and OT 06/10 : She [...] well. Insurance company did not approve for residential. Patient has been agreed for home discharge. Discussed with the welfare case workermanager of allied health services exam General: Alert, Oriented x3, Cooperative HEENT: [...] % (Auto) 60.0, Lymph % (Auto) 23.2, Ogle % (Auto) 11.5 H, Eos % (Auto) [...] Provider: Marci Lopez Consulting Providers: Ben Johnson; Friend,Shan Discharge Orders/Prescriptions [...] Health Service Charges/Coding Visit Charges Inpatient E&M: 42045 Disch Hosp >30min 06/11/25 1208 <Electronically signed by Ganesh Kiran MD> Cosigner Signature (if applicable): CC: Dr. Ganesh Kiran MD; Marci Lopez DO~ Signed [facility] Work Phone: 1(927) 863-947807-21-2025 Discharge summary Author Ganesh Kiran [facility] Note Date/Time June 11, 2025 12:0 5pm [facility] Medical Records Department [address] [place] [address] Instructions for Home/Discharge Instructions 06/11/25 1001 MR#: [id number] Acct: [id number] Name: MANSI CARO Rep #:[id number] 36 : 1955 70 From: Ganesh Mera PCP: Marci Lopez DO Status:ADM I N [...] Provider: Marci Lopez Consulting Providers: Ben Johnson; Friend,Shan Discharge Orders/Prescriptions [...] Kiran MD>Ganesh Kiran MD CC: Dr. Ben Johnson, ; Marci Lopez DO; Shan Lockett DO ~ Signed [facility] Work Phone: 1(376) 295-896407-21-2025 Hospital Discharge instructionsAdditional Instructions Date of Discharge: 06/11/25[facility] Work Phone: 1(861) 900-569507-21-2025 [facility]07-20-2025 Progress note Author Ganesh Kiran [facility] Note Date/Time June 10, 2025 3:45 pm [facility] Medical Records Department [address] [place] [address] Progress Note - Hospitalist 06/10/25 1544 MR#: [id number] Acct: [id number] Name: MANSI CARO Rep #:[id number] : 1955 70 From: Ganesh Mera PCP: Marci Lopez DO Status:ADM I N Location: [place] [address] Objective Data Objective Data Vital Signs: Vital [...] further said she had outside PFT in [place] by oven stripper. 06/07: On levofloxacin. 06/09: Discontinue levofloxacin. Had [...] of the bed: Discussed with the patient, welfare case worker. Continue PT and OT 06/10 close he [...] Glucose 101 Charges/Coding Visit Charges Inpatient E&M: 82644 Subs Hosp L2 06/10/25 1545 <Electronically signed by Ganesh Kiran MD> Cosigner Signature (if applicable): CC: ~ Signed [facility] Work Phone: 1(772) 259-115807-19-2025 Progress note Author Ganesh Kiran [facility] Note Date/Time June 09, 2025 1:15 pm [facility] Medical Records Department [address] [place] [address] Progress Note - Hospitalist 06/09/25 1309 MR#: [id number] Acct: [id number] Name: MANSI CARO Rep #:[id number] : 1955 70 From: Ganesh Mera PCP: Marci Lopez DO Status:ADM I N Location: [place] [address] Objective Data Objective Data Vital Signs: Vital [...] further said she had outside PFT in [place] by oven stripper. 06/07: On levofloxacin. 06/09: Discontinue levofloxacin. Had [...] of the bed: Discussed with the patient, welfare case worker. Continue PT and OT Discharge plan: Patient [...] Glucose 101 Charges/Coding Visit Charges Inpatient E&M: 82138 Subs Hosp L2 06/09/25 1315 <Electronically signed by Ganesh Kiran MD> Cosigner Signature (if applicable): CC: ~ Signed [facility] Work Phone: 1(384) 981-691307-19-2025 Telephone encounter Note* Telephone Encounter - Paige Vick - 06/09/2025 7:46 AM EDT Name of caller Mirlande Contact phone number: [phone] Relationship to Patient: spouse/SO Provider: Dr. Marci Lopez [place] [facility] Chief Complaint/Reason for Call: The patient , Song, states his might be released from [facility] on 06-09-2025. Also, the covering doctor at the [facility] states the patient might have psychiatrist issues with 8 other things wrong with her. The patient will be discharged to [facility]. Please call the patient at [phone] to advise Best time of day caller can be reached: Anytime Patient advised that office/PCP has 24-48 business hours to return their call: Yes [facility]iv[facility]270 Miscellaneous Notes* Telephone Encounter - Paige Vick - 06/09/2025 7:46 AM EDT Name of caller Mirlande Contact phone number: [phone] Relationship to Patient: spouse/SO Provider: Dr. Marci Lopez Practice: Chief Complaint/Reason for Call: The patient , Song, states his might be released from [facility] on 06-09-2025. Also, the covering doctor at [facility] states the patient might have psychiatrist issues with 8 other things wrong with her. The patient will be discharged to [facility]. Please call the patient at [phone] to advise Best time of day caller can be reached: Anytime Patient advised that office/PCP has 24-48 business hours to return their call: Yes documented in this [facility]07-18-2025 Progress note Author Ganesh Kiran [facility] Note Date/Time June 08, 2025 4:29 pm [facility] Medical Records Department [address] [facility] [place] [address] Progress Note - Hospitalist 06/08/25 1624 MR#: [id number] Acct: [id number] Name: MANSI CARO Rep #:[id number] 37 : 1955 70 From: Ganesh Mera PCP: Marci Lopez DO Status:ADM I N Location: [place] [address] Objective Data Objective Data Vital Signs: Vital [...] Neut % (Auto) 61.1, Lymph % (Auto) 26.4,Ogle % (Auto) 11.9 H, Eos % (Auto) [...] further said she had outside PFT in [place] by oven stripper. 06/07: On levofloxacin. EGD 04/25/2025 Impression: - [...] ischemic colitis, chronic problem: Patient follows Dr. Friend in GI office. Celiac test ordered at time of admission is still pending. Follow-up in GI office Persistent nausea and vomiting. 06/08: Celiac test negative and reported normal IgA and normal distal transglutaminase IgA. #7 chronic anxiety/depression-patient will remain on her outpatient medications. 06/08: Physical deconditioning/low motivation for moving out of the bed: Discussed with the patient, welfare case worker. Continue PT and OT Discharge plan: Patient [...] Glucose 101 Charges/Coding Visit Charges Inpatient E&M: 58152 Subs Hosp L2 06/08/251628 <Electronically signed by Ganesh Kiran MD> Cosigner Signature (if applicable): CC: ~ Signed [facility] Work Phone: 1(773) 266-347607-17-2025 Consult note Author Carlos Velázquez [facility] Note Date/Time June 11, 2025 3:38 pm [facility] Medical Records Department [address] [place] [address] Anesthesia Postop Eval II 06/07/251627 MR#: [id number] Acct: [id number] Name: MANSI CARO Rep #:[id number] : 1955 70 From: Carlos Mera PCP: Marci Lopez DO Status:ADM I N Y Race: C Location: [facility] MS321 -1 Anesthesia Postop Eval I Sum Postop Eval [...] Pain Level: 1 nausea: No Vomiting: No 06/07/25 1628 <Electronically signed by Carlos Velázquez MD> Date _ Carlos Velázquez MD Cosigner Signature: Date CC: ~ Signed [facility] Work Phone: [phone]) 230-491607-17-2025 Progress note Author Ganesh Kiran [facility] Note Date/Time June 07, 2025 3:36 pm [facility] Medical Records Department [address] [place] [address] Progress Note - Hospitalist 06/07/25 1533 MR#: [id number] Acct: [id number] Name: MANSI CARO Rep #:[id number] 17 : 1955 70 From: Ganesh Mera PCP: Marci Lopez DO Status:ADM I N Location: [place] [address] Objective Data Objective Data Vital Signs: Vital [...] further said she had outside PFT in [place] by oven stripper. 06/07: On levofloxacin. EGD 04/25/2025 Impression: - [...] Glucose 101 Charges/Coding Visit Charges Inpatient E&M: 82631 Subs Hosp L2 06/07/25 1536 <Electronically signed by Ganesh Kiran MD> Cosigner Signature (if applicable): CC: ~ Signed [facility] Work Phone: 1(705) 657-619607-17-2025 Consult note Author José Miguel Heller [facility] Note Date/Time June 07, 2025 1:58 pm [facility] Medical Records Department [address] [place] [address] Anesthesia Postop Eval I 06/07/25 1357 MR#: [id number] Acct: [id number] Name: MANSI CARO Rep #:[id number] 07 : 1955 70 From: José Miguel Heller PCP: Marci Lopez DO Status:ADM I N Y Race: C Location: [place] [address] Anesthesia: Postop Eval I Current Vital Signs [...] Miguel Gallo Signature: Date CC: ~ Signed [facility] Work Phone: 1(850) 534-939007-17-2025 Consult note Author Carlos Velázquez [facility] Note Date/Time June 07, 2025 1:18 pm [facility] Medical Records Department [address] [place] [address] Pre-Anesthesia Evaluation 06/07/25 1310 MR#: [id number] Acct: [id number] Name: MANSI CARO Rep #:[id number] : 1955 70 From: Carlos Mera PCP: Marci Lopez DO Status:ADM I N Y Race: C Location: [place] [address] 1 ASA Classification* ASA Classification ASA Classification: 3 [...] present inpreop and assures that patient took "only 1 eye drop of chocolate mild around 9:3 am" ) Anesthesia Focused Assessment* Temperature: 98 F [...] 06/07/25 TSH 4.050 uIU/mL (0.300-4.200) 04/19/25 03:45 03/23 08/16 COAG PT 13.3 SECONDS (11.7-14.9) 09/09/24 14:50 Pre-Assessment Diagnosis/Proposed Procedure Planned Operative Procedure(s): EGD with duodenal stent Anesthesia History 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: 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 Hx Hospitalization Yes: IN TCU PRESENTLY 04/23/25 [...] take am of surgery PONV PONV - wire mill rover: PONV - wire mill rover Female HX of Motion Sickness HX of N/V After Surgery Non-Smoker Duration of Surgery greater than 60 minutes Number of Risk Factors PONV Score Height & Weight Height & Weight: Anesthesia: Height & Weight Height 5 ft 8 in 06/07/25 10:08 Weight: 58.2 kg 06/07/25 10:08 Body Mass Index (BMI) 19.5 06/02/25 14:27 Respiratory Assessment Respiratory Assessment - wire mill rover: Respiratory Tract Infection Hx - wire mill rover Hx Respiratory Tract Infection No 04/23/25 16:09 STOP Sleep Apnea STOP Sleep Apnea - wire mill rover: STOP Sleep Apnea - wire mill rover Hx Hypertension No 06/06/25 16:07 Hx Sleep [...] Tobacco Use History Tobacco Use History - wire mill rover: Tobacco Use History - wire mill rover Tobacco Use Cigarettes 11/13/24 13:46 Smoking Status Former smoker 06/02/25 14:27 Hx Tobacco Use No 06/02/25 14:27 Years Smoking Packs Smoked per Day Smoking Cessation Date was No - quit smoking greater 06/02/25 14:27 within the last 15 years than 15 years ago Hx Smoking Cessation Date 10/06/09 06/02/25 14:27 Hx Smoking Cessation No 06/02/25 14:27 Counseling Hematologic Medial History Hematologic Hx - wire mill rover: Hematologic Medical Hx - screen roller Hx of Blood Transfusion Yes 06/02/25 14:27 [...] confused, unrespo /Reproduction History /Reproductive History - wire mill rover: /Reproductive Hx- wire mill rover Hx Now Gestational Age (in weeks): EDC: [...] 325 Mg Tablet PO Not Given DAILY@1200 [place] Heparin Sodium (Porcine) 5,000 unit 06/02/25 22:00 06/07/25 10:47 Heparin Injection (Vial) 5,000 Unit/Ml Vial SC 5,000 unit Q12 [place] Administration Hyoscyamine Sulfate 0.125 mg 06/02/25 14:54 06/05/25 09:51 Hyoscyamine Sulfate 0.125 Mg Tablet PO 0.125 mg TID PRN Administration dyspepsia Sodium Chloride 250 mls @ 15 mls/hr 06/02/25 15:17 IV .[id number] PRN Saline Flush Sodium Chloride 250 mls @ 15 mls/hr 06/02/25 15:17 IV .H28O91H PRN Additional IVPB Infusion Sodium Chloride 250 mls @ 15 mls/hr 06/03/25 16:15 IV .A48T78R PRN Saline Flush Sodium Chloride 250 mls @ 15 mls/hr 06/03/25 16:15 IV .S20Z73P PRN Additional IVPB Infusion Lactated Ringer's 1,000 [...] (patent foramen ovale) Cardiac resynchronization therapy defibrillator ([employer] REP-D) in place Myocarditis Hyperlipidemia Hypertension Home Medications [...] 0.125 mg tablet 0.125 mg PO TID DE N dyspepsia #90 06/04/25 Unknown Rx tabs [...] no additional complaints, except as documented. 06/07/25 1318 <Electronically signed by Carlos Velázquez MD> Date _ Carlos Velázquez MD Cosigner Signature: Date CC: ~ Signed [facility] Work Phone: 1(775) 732-258007-17-2025 Consult note Author Shan Friend [facility] Note Date/Time June 07, 2025 1:03 pm [facility] Medical Records Department [address] [place] [address] Consultation - GI 06/07/25 1300 MR#: [id number] Acct: [id number] Name: MANSI CARO Rep #:[id number] : 1955 70 From: Shan Lockett DO PCP: Marci Lopez DO Status:ADM I N Location: [place] [address] HPI Consult Data Date of Consult: 06/07/25 HPI Narrative Reason for Consultation: Abdominal pain with nausea vomiting HPI Narrative: MANSI CARO, is a 70 F who presented to [facility] after her physician sent her in [...] 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 [facility] Medical History Pneumonia Dyspnea Back pain History [...] (patent foramen ovale) Cardiac resynchronization therapy defibrillator ([employer] REP-D) in place Myocarditis Hyperlipidemia Hypertension Home Medications [...] 0.125 mg tablet 0.125 mg PO TID DE N dyspepsia #90 06/04/25 Unknown Rx tabs [...] of 3. Charges/Coding Visit Charges Inpatient E&M: 61964 Init Hosp L3 06/07/25 1303 <Electronically signed by Shan Lockett DO> Cosigner Signature (if applicable): CC: Marci Lopez DO~ Signed [facility] Work Phone: [phone]) 342-542407-17-2025 Procedure [facility] 06-06-2025 Progress note Author Ganesh Kiran [facility] Note Date/Time June 06, 2025 4:53 pm [facility] Medical Records Department [address] [place] [address] Progress Note - Hospitalist 06/06/25 1339 MR#: [id number] Acct: [id number] Name: MANSI CARO Rep #:[id number] : 1955 70 From: Ganesh Mera PCP: Marci Lopez DO Status:ADM I N Location: [place] [address] Objective Data Objective Data Vital Signs: Vital [...] further said she had outside PFT in [place] by oven stripper. EGD 04/25/2025 Impression: - Normal esophagus. - [...] follow-up instructions. Charges/Coding Visit Charges Inpatient E&M: 12174 Subs Hosp L2 06/06/25 0698 <Electronically signed by Ganesh Kiran MD> Cosigner Signature (if applicable): CC: ~ Signed [facility] Work Phone: 1(805) 228-654107-16-2025 Discharge summary Author Ganesh Kiran [facility] Note Date/Time June 06, 2025 12:2 6pm [facility] Medical Records Department [address] [place] [address] Discharge Summary 06/06/25 1219 MR#: [id number] Acct: [id number] Name: MANSI CARO Rep #:[id number] 24 : 1955 70 From: Ganesh Mera PCP: Marci Lopez DO Status:ADM I N Location: [place] [address] Providers Date of Admission: 06/02/25 Date of [...] DO [Primary Care Provider] - Lluvia Kilpatrick DUTY OFFICER-C [Med Staff - [facility] Practice Prof] - Within 1 Month (For COPD evaluation) Disposition Disposition (needs filled in before D/C Order can be placed): Home, Self Care Charges/Coding Visit Charges Inpatient E&M: 59222 Disch Hosp >30min 06/06/25 1226 <Electronically signed by Ganesh Kiran MD> Cosigner Signature (if applicable): CC: Dr. Ganesh Kiran MD; Marci Lopez DO~ Signed [facility] Work Phone: 1(356) 758-259507-16-2025 Discharge summary Author Ganesh Kiran [facility] Note Date/Time June 06, 2025 12:1 9pm [facility] Medical Records Department [address] [place] [address] Instructions for Home/Discharge Instructions 06/06/25 0955 MR#: [id number] Acct: [id number] Name: MANSI CARO Rep #:[id number] 10 : 1955 70 From: Ganesh Mera PCP: Marci Lopez DO Status:ADM I N [...] Provider: Marci Lopez Consulting Providers: Ben Johnson Orders/Prescriptions Prescriptions: New levofloxacin 500 mg Tablet [...] DO [Primary Care Provider] - Lluvia Kilpatrick DUTY OFFICER-C [Med Staff - [facility] Practice Prof] - Within 1 Month (For COPD evaluation) Disposition Disposition (needs filled in before D/C Order can be placed): Home, Self Care 06/06/25 1219<Electronically signed by Ganesh Kiran MD>Ganesh Kiran MD CC: Dr. Ben Johnson DO; Marci Lopez DO ~ Signed [facility] Work Phone: 1(231) 682-301507-16-2025 [facility]07-15-2025 Progress note Author Ben Paulinored [facility] Note Date/Time June 05, 2025 3:12 pm [facility] Medical Records Department [address] [place] [address] Progress Note - Hospitalist 06/05/25 1509 MR#: [id number] Acct: [id number] Name: MANSI CARO Rep #:[id number] 23 : 1955 70 From: Ben Johnson DO PCP: Marci Lopez DO Status:ADM I N Location: [address] Subjective Subjective Patient was seen and [...] 35 minutes Charges/Coding Visit Charges Inpatient E&M: 15745 Subs Hosp L2 06/05/25 1512 <Electronically signed by Ben Johnson DO> Cosigner Signature (if applicable): CC: ~ Signed [facility] Work Phone: 1(228) 816-674207-14-2025 Progress note Author Ben Johnson [facility] Note Date/Time June 04, 2025 6:22 pm [facility] Medical Records Department [address] [place] [address] Progress Note - Hospitalist 06/04/25 1820 MR#: [id number] Acct: [id number] Name: GORDOMANSI HAINESE Rep #:[id number] 30 : 1955 70 From: Ben Johnson DO PCP: Maric Lopez DO Status:ADM I N Location: [place]3 SZ430-4 Subjective Subjective Patient was seen and examined [...] % (Auto) 64.7, Lymph % (Auto) 25.1, Ogle % (Auto) 8.2, Eos % (Auto) 1.3, [...] 35 minutes Charges/Coding Visit Charges Inpatient E&M: 41492 Subs Hosp L2 06/04/25 182 <Electronically signed by Ben Johnson DO> Cosigner Signature (if applicable): CC: ~ Signed [facility] Work Phone: 1(112) 606-667807-13-2025 Progress note Author Ben Johnson [facility] Note Date/Time June 03, 2025 4:12 pm [facility] Medical Records Department [address] [place] [address] Progress Note - Hospitalist 06/03/25 1610 MR#: [id number] Acct: [id number] Name: MANSI CARO Rep #:[id number] : 1955 70 From: Ben Johnson DO PCP: Marci Lopez DO Status:ADM I N Location: [place] [address] Subjective Subjective Patient's white blood cell count [...] % (Auto) 66.4, Lymph % (Auto) 19.2, Ogle % (Auto) 12.4 H, Eos % (Auto) [...] 35 minutes Charges/Coding Visit Charges Inpatient E&M: 17745 Subs Hosp L2 06/03/25 1612 <Electronically signed by Ben Johnson DO> Cosigner Signature (if applicable): CC: ~ Signed [facility] Work Phone: 1(221) 655-496907-12-2025 Discharge summary Author Bossman Sanders [facility] Note Date/Time June 02, 2025 9:07 pm [facility] Medical Records Department [address] [place] [address] Emergency Department Summary 06/02/25 MR#: [id number] Acct: [id number] Name: MANSI CARO Rep #:[id number] : 1955 70 From: Bossman Sanders DO PCP: Marci Lopez DO Status:ADM I N Location: [place] [address] HPI History of Present Illness Chief Complaint: [...] of ischemic colitis. She sees Dr. Lockett community outreach worker. Patient with prior history ofstroke and has history of a pacer defibrillator. Currently on aspirin and used to be on Plavix but states she is not currently taking that. Patient also states she has had a hard time swallowing and nothing tastes good. Intermittent nausea and vomiting [facility] Medical History Back pain History of [...] (patent foramen ovale) Cardiac resynchronization therapy defibrillator ([employer] REP-D) in place Myocarditis Hyperlipidemia Hypertension Home Medications [...] 0.125 mg tablet 0.125 mg PO TID DE N dyspepsia #90 03/05/25 06/02/25 Rx tabs [...] social history: - Song ROS ROS ED Review of Systems ROS [...] normal at 1.3. LFTs were normal. BT DUTY OFFICER was elevated 948. Lipase was normal. CTA [...] No change since prior examination. Reading Location: [facility] EKG Initial EKG: Attestation: I [...] DO [Primary Care Provider] - Print Language: Puerto Rican Disposition Disposition: Acute Care Hospital [facility] What to do if you have Problems For any increased pain, shortness of breath, bleeding, nausea or vomiting, chestpain, or any unexpected problems, contact your Primary Care Provider. Call [facility] ([phone]) or report to the closest Emergency Room. Call 911 if necessary. 06/02/252106 <Electronically signed by Bossman Sanders DO> Cosigner Signature (if applicable): CC: Marci Lopez DO ~ Signed [facility] Work Phone: 1(268) 528-123707-12-2025 History and physical note Author Ben Johnson [facility] Note Date/Time June 02, 2025 6:33 pm [facility] Medical Records Department [address] [place] [address] [place] [address] H&P Exam - Hospitalist 06/02/25 1801 MR#: [id number] Acct: [id number] Name: MANSI CARO Rep #:[id number] 01 : 1955 70 From: Ben Johnson DO PCP: Marci Lopez DO Status:ADM I N Location: [facility] VR444-5 HPI - General General Date of Admission: 06/02/25 Date of Service: 06/02/25 HPI Narrative MANSI CARO, is a 70 F who presents to the emergency room at [facility] after her physician sent her [...] also has a history of cerebral palsy. [facility] Medical History Back pain [...] (patent foramen ovale) Cardiac resynchronization therapy defibrillator ([employer] REP-D) in place Myocarditis Hyperlipidemia Hypertension Home Medications [...] 0.125 mg tablet 0.125 mg PO TID DE N dyspepsia #90 03/05/25 06/02/25 Rx tabs [...] No change since prior examination. Reading Location: [facility] Assessment & Plan Assessment/Plan (1) [...] 75 minutes Charges/Coding Visit Charges Inpatient E&M: 04361 Init Hosp L3 06/02/25 1833 <Electronically signed by Ben Johnson DO> Cosigner Signature (if applicable): CC: Dr. Ben Johnson, ; Marci Lopez DO~ Signed [facility] Work Phone: 1(494) 137-852207-12-2025 Telephone encounter Note* Telephone Encounter - Donna Vail RN - 06/02/2025 3:16 PM EDT S: Song called the clinical access center B: He called to report Mansi was admitted to the hospital today A: He wanted to thank Dr. Lopez for her advice. R: She is admitted at [facility]. Patient instructed to call back with worsening symptoms, concerns or questions. [id number] Miscellaneous Notes* Telephone Encounter - Donna Vail RN - 06/02/2025 3:16 PM EDT S: Song called the clinical access center B: He called to report Mansi was admitted to the hospital today A: He wanted to thank Dr. Lopez for her advice. R: She is admitted at [facility]. Patient instructed to call back with worsening symptoms, concerns or questions. documented in this [facility]07-12-2025 Radiology Diagnostic study [facility]07-12-2025 Telephone encounter Note* Telephone Encounter - Paige Vick - 06/02/2025 10:28 AM EDT Name of caller requesting page: Song Phone Number of caller: [phone] Facility requesting page: The patient Spouse Reason for Page: The patient states he is taking the patient to [facility] right now [er Dr. Lopez orders. The patient O2 level this morning was 83 and her temperature is 99.1. Provider paged: Antonio Clay MD Practice Name of paged provider: [facility] Page Placed to #: Secure chat Time Page was sent or provider contacted: 10:35 am Page Content: PAGE: The patient Song, ; PT. Taylor Caro; The patient states he is taking the patient to [facility] right now per Dr. Lopez orders. The patient O2 level this morning was 83 and her temperature is 99.1. Please call the patient to advise. [id number] Miscellaneous Notes* Telephone Encounter - Paige Vick - 06/02/2025 10:28 AM EDT Name of caller requesting page: Song Phone Number of caller: [phone] Facility requesting page: The patient Spouse Reason for Page: The patient states he is taking the patient to [facility] right now [er Dr. Lopez orders. The patient O2 level this morning was 83 and her temperature is 99.1. Provider paged: Antonio Clay MD Practice Name of paged provider: [facility] Page Placed to #: Secure chat Time Page was sent or provider contacted: 10:35 am Page Content: PAGE: The patient Song, ; PT. Taylor Caro; The patient states he is taking the patient to [facility] right now per Dr. Lopez orders. The patient O2 level this morning was 83 and her temperature is 99.1. Please call the patient to advise. documented in this [facility]07-01-2025 Radiology Diagnostic study [facility]07-01-2025 Discharge summary Author Fazal Heller [facility] Note Date/Time May 22, 2025 8:43p m [facility] Medical Records Department [address] [place] [address] Emergency Department Summary 05/22/25 MR#: [id number] Acct: [id number] Name: MANSI CARO Rep #:[id number] : [...] been having GI bleed in the past. [facility] Medical History Back pain History of [...] (patent foramen ovale) Cardiac resynchronization therapy defibrillator (DE[employer]ER SAL[employer] REP-D) in place Myocarditis Hyperlipidemia Hypertension Home Medications [...] 0.125 mg tablet 0.125 mg PO TID DE N dyspepsia #90 03/05/25 Unknown Rx tabs [...] following commands knew that she was at [facility] years 2024 Skin: Warm, dry, intact [...] Lymph % (Auto) 16.2 L 17.5 L Ogle % (Auto) 10.4 H 12.5 H Eos [...] Sl. Cloudy Urine pH 7.0 Ur Specific [place] 1.005 Urine Protein 30 H Urine Glucose [...] Colonic diverticulosis. Atherosclerosis as above. Reading Location: [place] [address] Discharge Plan Triage Chief Complaint: Abd Pain [...] urine culture with your doctor. Print Language: Puerto Rican Disposition Disposition: Home, Self Care What to do if you have Problems For any increased pain, shortness of breath, bleeding, nausea or vomiting, chestpain, or any unexpected problems, contact your Primary Care Provider. Call [facility] ([phone]) or report to the closest Emergency Room. Call 911 if necessary. 05/22/252042 <Electronically signed by Fazal Heller DO> Cosigner Signature (if applicable): CC: Marci Lopez DO ~ Signed [facility] Work Phone: 1(660) 883-694006-30-2025 NoteHNO ID: [id number] Author: DONOVAN LOUISE jose Service: ? Author Type: ? Type: Progress [...] been reviewed prior to dispensing the medication. Automotive Technician Instructor Assessment Patient confirmed: Yes Med/dose confirmed: Yes Missed doses: No Estimated days supply on hand: 7 Next cycle/dose due: 05/23/25 Copay amount: 0 Delivery method: FedEx Signature required: Waived on patient request Delivery address: [address] [place] [address] Delivery date: 05/24/25 Questions or concerns for [...] facility-administered medications on file prior to visit. [facility] RX SPECIALTY CLINICAL ASSESSMENT - NEUROLOGY [...] and monitor patients closely (more content not included)...[facility]06-09-2025 Discharge summary Author Alonso Estuardo [facility] Note Date/Time April 30, 2025 7:13p m [facility] Medical Records Department [address] [place] [address] Discharge Summary 04/30/25 1901 MR#: [id number] Acct: [id number] Name: MANSI CARO Rep #:[id number] : 1955 70 From: Alonso Marte MD PCP: Marci Lopez DO Status:ADM I N Location: [place] [address] Providers Date of Admission: 04/20/25 Primary Care [...] ___x_ GRD contraindicated. 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 The following psychotropic medication was present [...] __x__ GRD contraindicated. 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 The following psychotropic medication was present [...] __x__ GRD contraindicated. Reason contraindicated: stable chronic nursing home use. Medications at Discharge Home Medications clonazepam [...] % (Auto) 55.4, Lymph % (Auto) 28.3, Ogle % (Auto) 10.9 H, Eos % (Auto) [...] [facility] PT. Please Follow Up With: JOSE When: As scheduled. Meaningful Use Info Meaningful [...] Instructions / Restrictions: Discharge home with 05/03/2025, Kiok Rossi PT. Discharge Orders/Prescriptions Prescriptions: New pantoprazole [...] Marci Lopez DO [Primary Care Provider] - FriendShan DO [Med Staff - Active Staff] - Within 1 Month (Colitis.) Disposition Disposition (needs filled in before D/C Order can be placed): Home, Self Care 04/30/251912 <Electronically signed by Alonso Marte MD> Cosigner Signature (if applicable): CC: Dr. Alonso Marte MD; Marci Lopez DO~ Signed [facility] Work Phone: [phone] Discharge summary [facility] Medical Records Department [address] [place] [address] Discharge Summary 04/30/25 1901 MR#: [id number] Acct: [id number] Name: MANSI CARO Rep #:[id number] : 1955 70 From: Alonso Marte MD PCP: Marci Lopez DO Status:ADM I N Location: [place] [address] Providers Date of Admission: 04/20/25 Primary Care Physician: Dr. Marci Lopez, Reason For Visit: GENERALIZED WEAKNESS Diagnosis Discharge [...] ___x_ GRD contraindicated. 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 The following psychotropic medication was present [...] __x__ GRD contraindicated. 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 The following psychotropic medication was present [...] __x__ GRD contraindicated. 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 Medications at Discharge Home Medications clonazepam [...] ileum was normal. Discharge home with 05/03/2025, [facility] PT. Physical Exam Const alert General [...] Neut% (Auto) 55.4, Lymph % (Auto) 28.3, Ogle % (Auto) 10.9 H, Eos % (Auto) [...] [facility] PT. Please Follow Up With: JOSE When: As scheduled. Meaningful Use Info Meaningful [...] Alonso Marte MD; Marci Lopez DO~ Signed [facility]06-09-2025 [facility] Consult note Author Melanie Muñoz [facility] Note Date/Time April 25, 2025 8:26a [facility] Medical Records Department [address] [place] [address] Anesthesia Postop Eval II 04/25/25 0823 MR#: [id number] Acct: [id number] Name: MANSI CARO Rep #:[id number] : 1955 70 From: Melanie Muñoz CRNA PCP: Marci Lopez DO Status:REG S DC Y Race: C Location: [place] [address] Anesthesia Postop Eval I Sum Postop Eval [...] No 04/25/25822 <Electronically signed by Melanie garrido COMPUTER OPERATIONS TECHNICIAN> Date _ Melanie Muñoz COMPUTER OPERATIONS TECHNICIAN Cosigner Signature: Date CC: ~ Signed [facility] Work Phone: 1(262) 777-396106-04-2025 Consult note Author José Miguel Heller [facility] Note Date/Time April 25, 2025 7:57a m [facility] Medical Records Department [address] [place] [address] Anesthesia Postop Eval I 04/25/25755 MR#: [id number] Acct: [id number] Name: MANSI CARO Rep #:[id number] : 1955 70 From: José Miguel Heller PCP: Marci Lopez DO Status:REG S DC Y Race: C Location: [place] [address] Anesthesia: Postop Eval I Current Vital Signs [...] Heller > Date _ José Miguel Heller Cosignaudi Signature: Date CC: ~ Signed [facility] Work Phone: [phone] 222-321706-04-2025 Consult note Author Palmer Gallo [facility] Note Date/Time April 25, 2025 7:06a m [facility] Medical Records Department [address] [place] [address] Pre-Anesthesia Evaluation 04/25/25 0701 MR#: [id number] Acct: [id number] Name: MANSI CARO Rep #:[id number] : 1955 70 From: Palmer Gallo MD PCP: Marci Lopez DO Status:REG S DC Y Race: C Location: [place] [address] ASA Classification* ASA Classification ASA Classification: 4 [...] 04/24/25 TSH 4.050 uIU/mL (0.300-4.200) 04/19/25 03:45 03/23 08/16 COAG PT 13.3 SECONDS (11.7-14.9) 09/09/24 14:50 Pre-Assessment Diagnosis/Proposed Procedure Planned Operative Procedure(s): COLONOSCOPY/EGD Anesthesia History 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: 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 Hx Hospitalization Yes: IN TCU PRESENTLY 04/23/25 [...] take am of surgery PONV PONV - wire mill rover: PONV - wire mill rover Female Yes 04/23/25 16:09 HX of Motion [...] 04/25/25 06:48 Respiratory Assessment Respiratory Assessment - wire mill rover: Respiratory Tract Infection Hx - wire mill rover Hx Respiratory Tract Infection No 04/23/25 16:09 STOP Sleep Apnea STOP Sleep Apnea - wire mill rover: STOP Sleep Apnea - wire mill rover Hx Hypertension Yes: CONTROLLED ON MED 04/23/25 [...] Tobacco Use History Tobacco Use History - wire mill rover: Tobacco Use History - wire mill rover Tobacco Use Cigarettes 11/13/24 13:46 Smoking Status Former smoker 04/23/25 16:09 Hx Tobacco Use No 04/23/25 16:09 Years Smoking Packs Smoked per Day Smoking Cessation Date was Yes - quit smoking within 15 04/23/25 16:09 within the last 15 years years Hx Smoking Cessation Date 10/06/09 04/23/25 16:09 Hx Smoking Cessation No 04/23/25 16:09 Counseling Hematologic Medial History Hematologic Hx - wire mill rover: Hematologic Medical Hx - screen roller Hx of Blood Transfusion No 04/23/25 16:09 [...] confused, unrespo /Reproduction History /Reproductive History - wire mill rover: /Reproductive Hx- wire mill rover Hx Now No 04/23/25 16:09 Gestational Age [...] (patent foramen ovale) Cardiac resynchronization therapy defibrillator (DE[employer]ER SAL[employer] REP-D) in place Myocarditis Hyperlipidemia Hypertension Home Medications [...] 0.125 mg tablet 0.125 mg PO TID DE N dyspepsia #90 03/05/25 Unknown Rx tabs [...] MD Cosigner Signature: Date CC: ~ Signed [facility] Work Phone: [phone] History and physical note Author Shan Friend [facility] Note Date/Time April 25, 2025 6:47a m [facility] Medical Records Department [address] [place] [address] History & Physical Exam 04/25/25 0645 MR#: [id number] Acct: [id number] Name: MANSI CARO Rep #:[id number] : 1955 70 From: Shan Lockett DO PCP: Marci Lopez DO Status:REG S DC Location: [place] [address] HPI - General General Date of Admission: 04/25/25 Date of Service: 04/25/25 Chief Complaint: Anemia and abdominal pain HPI Narrative MANSI CARO, is a 70 F who presents for endoscopic evaluation I established 07.21.34 after hospitalization for bloody diarrhea revealing ischemic colitis. Colonoscopy 07.05.24; - Preparation of the colon was fair. - Diverticulosis in the recto-sigmoid colon, in the sigmoid colon and in the descending colon. - No specimens collected. Biochemical work up 07.17.24; hgb 10.2 L, APTT 23.6, Iron 40 L , TIBC 239 Last OV 1..25 Pt with continues abd pain and constipation. Taking miralax daily. Pt referred to pain management and women's care. Start Linzess 72 mcg daily. OV 3..25; Pt recommended to f/u with GI for FOBT+. Women's care did not believe her pain to be junior systems administrator in nature. She endorses some lower abd pain today. SHe is having a bm every two days while on Linzess 72 mcg and miralax. [facility] Medical History Back pain [...] (patent foramen ovale) Cardiac resynchronization therapy defibrillator (DE[employer] SALES REP-D) in place Myocarditis Hyperlipidemia Hypertension Home Medications [...] 0.125 mg tablet 0.125 mg PO TID DE N dyspepsia #90 03/05/25 Unknown Rx tabs [...] Marci Lopez DO; Shan Lockett DO~ Signed [facility] Work Phone: 1([phone]) 341-111206-04-2025 Procedure [facility] 04-25-2025 Procedure [facility]06-04-2025 Procedure note [facility]06-04-2025 Procedure [facility] 04-25-2025 [facility]06-02-2025 History of Present illness Narrative* [...] been reviewed prior to dispensing the medication. Automotive Technician Instructor Assessment Patient confirmed: Yes Med/dose confirmed: Yes Supplies needed: No supplies needed Missed doses: No Estimated days supply on hand: 10 Next cycle/dose due: 04/24/25 Copay amount: 0 Payment confirmed: Yes Delivery method: FedEx Signature required: No Delivery address: [address] [place] [address] Delivery date: 04/26/25 Questions or concerns for [...] facility-administered medications on file prior to visit. [facility] RX SPECIALTY CLINICAL ASSESSMENT - NEUROLOGY [...] monitor patients closely for evidence of excessive COMBAT RIFLE CREWMEMBER depression (ie, respiratory depression, hypotension, sedation, or coma). Vaccines Est. Tx Plan Start Date: No information available Estimated Start Date Info: No information available Est. Estimated Treatment Duration: No information available Deisi Post CPhT [facility], Inflammatory P: [phone] F: [phone] [facility] NoteHNO ID: [id number] Author: WESLEY HAYES RPh Service: ? Author [...] Hayes, PharmD, BCPS, CSP, MSCS Clinical Pharmacist [facility] P: ; F: Pool: P [facility] Automotive Technician Instructor Assessment Patient confirmed: Yes Med/dose confirmed: Yes Supplies needed: No supplies needed Missed doses: No Estimated days supply on hand: 10 Next cycle/dose due: 04/24/25 Copay amount: 0 Payment confirmed: Yes Delivery method: FedEx Signature required: No Delivery address: [address] [place] [address] Delivery date: 04/26/25 Questions or concerns for [...] facility-administered medications on file prior to visit. [facility] RX SPECIALTY CLINICAL ASSESSMENT - NEUROLOGY [...] treatment options are inadequa (more content not included)...[facility] 04-21-2025 Progress note Author Talat Cameron [facility] Note Date/Time April 21, 2025 6:13p m [facility] Medical Records Department [address] [place] [address] Progress Note - Pharmacy 04/21/25 1122 MR#: [id number] Acct: [id number] Name: MANSI CARO Rep #:[id number] : 1955 70 From: Talat Cameron PCP: Marci Lopez DO Status:ADM I N Location: TCU [facility]- Documented by User: Talat Cameron 04/21/25 [...] 40 Mg Tablet PO 40 mg QHS [facility] Administration Baclofen 5 mg 04/21/25 08:00 04/21/25 09:00 Baclofen 10 Mg Tablet PO 5 mg DAILYCM [facility] Administration Cholecalciferol 50 mcg 04/20/25 22:00 04/20/25 21:32 Cholecalciferol (Vit D3) 25 Mcg Tablet (1,000 Units) PO 50 mcg QHS [facility] Administration Clonazepam 1 mg 04/20/25 22:00 04/20/25 21:32 Clonazepam 1 Mg Tablet PO 1 mg QHS [facility] Administration Clopidogrel Bisulfate 75 mg 04/23/25 10:00 Clopidogrel Bisulfate 75 Mg Tablet PO MoWeFr [facility] Escitalopram Oxalate 5 mg 04/21/25 10:00 04/21/25 09:02 Escitalopram Oxalate 10 Mg Tablet PO 5 mg DAILY [facility] Administration Ferrous Sulfate 325 mg 04/21/25 12:00 Ferrous Sulfate 325 Mg Tablet PO DAILY@1200 [facility] Furosemide 20 mg 04/20/25 16:41 Furosemide 20 Mg Tablet PO DAILY PRN PRN for 2lb weight gain Protocol Glycerin/Hypromellose/Polyethylene 1 drp 04/20/25 18:04 Glycerin/Hypromellose/Pti779 15 Ml Bottle EACH EYE Q1H PRN PRN Dry eyes Hyoscyamine Sulfate 0.125 mg 04/20/25 18:01 Hyoscyamine Sulfate 0.125 Mg Tablet PO TID PRN dyspepsia Lamotrigine 100 mg 04/21/25 10:00 04/21/25 09:02 Lamotrigine 100 Mg Tablet PO 100 mg DAILY [facility] Administration Metformin HCl 500 mg 04/21/25 08:00 04/21/25 09:00 Metformin Hcl 500 Mg Tablet PO 500 mg DAILYCM [facility] Administration Metoprolol Succinate 25 mg 04/21/25 10:00 04/21/25 09:03 Metoprolol(Xl)Succ 25 Mg Tablet PO 25 mg DAILY [facility] Administration Protocol Non-Formulary Medication 145 mcg 04/21/25 10:00 Linaclotide [Linzess] PO QAM [facility] Oxycodone HCl 5 mg 04/20/25 [...] PO daily. This is a stable chronic nursing home medication, GDR not recommended. Monitor for efficacy [...] Talat Cameron Cosigner Signature (if applicable): 04/21/25 1817 <Electronically signed by Alonso Marte MD> CC: ~ Signed [facility] Work Phone: 1(874) 428-885905-31-2025 Progress note [facility] Medical Records Department [address] [place] [address] Progress Note - Pharmacy 04/21/25 1122 MR#: [id number] Acct: [id number] Name: MANSI CARO Rep #:[id number] : 1955 70 From: Talat Cameron PCP: Marci Lopez DO Status:ADM I N Location: [facility] Documented by User: Talat Cameron 04/21/25 12:12 [...] 10 Mg Tablet PO 5 mg DAILYCM [facility] Administration Cholecalciferol 50 mcg 04/20/25 22:00 04/20/25 21:32 Cholecalciferol (Vit D3) 25 Mcg Tablet (1,000 Units) PO 50 mcg QHS [facility] Administration Clonazepam 1 mg 04/20/25 22:00 04/20/25 21:32 Clonazepam 1 Mg Tablet PO 1 mg QHS [facility] Administration Clopidogrel Bisulfate 75 mg 04/23/25 10:00 Clopidogrel Bisulfate 75 Mg Tablet PO MoWeFr [facility] Escitalopram Oxalate 5 mg 04/21/25 10:00 04/21/25 09:02 Escitalopram Oxalate 10 Mg Tablet PO 5 mg DAILY [facility] Administration Ferrous Sulfate 325 mg 04/21/25 12:00 Ferrous Sulfate 325 Mg Tablet PO DAILY@1200 [facility] Furosemide 20 mg 04/20/25 16:41 Furosemide 20 Mg Tablet PO DAILY PRN PRN for 2lb weight gain Protocol Glycerin/Hypromellose/Polyethylene 1 drp 04/20/25 18:04 Glycerin/Hypromellose/Pcw813 15 Ml Bottle EACH EYE Q1H PRN PRN Dry eyes Hyoscyamine Sulfate 0.125 mg 04/20/25 18:01 Hyoscyamine Sulfate 0.125 Mg Tablet PO TID PRN dyspepsia Lamotrigine 100 mg 04/21/25 10:00 04/21/25 09:02 Lamotrigine 100 Mg Tablet PO 100 mg DAILY [facility] Administration Metformin HCl 500 mg 04/21/25 08:00 04/21/25 09:00 Metformin Hcl 500 Mg Tablet PO 500 mg DAILYCM [facility] Administration Metoprolol Succinate 25 mg 04/21/25 10:00 04/21/25 09:03 Metoprolol(Xl)Succ 25 Mg Tablet PO 25 mg DAILY [facility] Administration Protocol Non-Formulary Medication 145 mcg 05/31/25 10:00 Linaclotide [Linzess] PO QAM [facility] Oxycodone [...] PO daily. This is a stable chronic long lines operator medication, GDR not recommended. Monitor for efficacy [...] User: Dr. Alonso Marte MD 04/21/25 18:13 [facility] RX Drug Regimen Review Provider Comments Provider responsibility Provider Comments to Recommendations by Pharmacy Agree 04/21/25 1212 Talat Ortizigner Signature (if applicable): 04/21/25 1813 CC: ~ Signed [facility]05-30-2025 History and physical note Author [facility] Note Date/Time April 20, 2025 4:53p m [facility] Medical Records Department [address] [place] [address] History & Physical Exam 04/20/25 1624 MR#: [id number] Acct: [id number] Name: MANSI CARO Rep #:[id number] : 1955 70 From: Alonso Marte MD PCP: Macri Lopez DO Status:ADM I N [facility] HPI - General General Date of Admission: 04/20/25 Date of Service: 04/20/25 Chief Complaint: Here for rehabilitation. HPI Narrative MANSI CARO, is a 70 Female who presents with followin04/19/2025 [facility] ED weakness. Walks with walker at baseline. Not eating, not drinking for weeks. Too weak to get OOB. Patient concerned with urinary tract infection. Bloodwork okay, urinalysis okay. Normal saline 1 liter IV fluid bolus given. unable to care for her at home. PT/OT for placement. 04/19/2025 Admit [facility]. PT/OT/CM for SNF placement. No reversible etiology for weakness found. 04/20/2025 Resident vomited twice, vomitus appeared to be food, antiemetics givenwhich made her loopy. 04/20/2025 Admit to TCU with debility, here for rehabilitation, strengthening, prior to discharge home with . 04/25/2025 Dr. Lockett planning EGD/colonoscopy for anemia, +hemoccult, ischemic colitis. Dr. Garcia planning cystoscopy in office, date unknown. [facility] Medical History (Updated 04/20/25 @ 16:[address] Alonso aMrte MD) CVA (cerebral vascular accident) Ischemic colitis [...] (patent foramen ovale) Cardiac resynchronization therapy defibrillator (DE[employer] SAL[employer] REP-D) in place Myocarditis Hyperlipidemia Hypertension Home Medications [...] 0.25 % eye 1 drp ophthalmic (e gabby) .q1hr PRN 01/23/25 Unknown History gel drops (Blink Gel Tears) Dry eyes ferrous sulfate 325 mg (65 mg 325 mg PO QDAY Supplemen t 02/13/25 04/20/25 08:30 History iron) tablet (Feosol) linaclotide 145 mcg capsule 145 mcg PO QAM Constipatio n #60 02/14/25 Unknown Rx (Linzess) caps hyoscyamine sulfate 0.125 mg tablet 0.125 mg PO TID DE N dyspepsia #90 03/05/25 Unknown Rx tabs [...] ___x_ GRD contraindicated. Reason contraindicated: stable chronic nursing home use. The following psychotropic medication was present [...] __x__ GRD contraindicated. Reason contraindicated: stable chronic nursing home use. The following psychotropic medication was present [...] __x__ GRD contraindicated. Reason contraindicated: stable chronic nursing home use. 04/20/25 1653 <Electronically signed by Alonso Marte MD> Cosigner Signature (if applicable): CC: Dr. Alonso Marte MD; Marci Lopez DO~ Signed [facility] Work Phone: 1(990) 274-902205-30-2025 Evaluation note* Diagnosis Onset Date Resolution Status Admit Date Calcium deficiency acute April 202024 4:10pm CVA [...] HLD (hyperlipidemia) chronic April 20, 2025 4:10pm Ischemic cardiomyopathy acute J antione2024 3:08pm Presence of biventricular implantable cardioverter-defibrillator acute May 29, 2025 3:08pm Presence of stent in coronar y artery acute May 29, 2025 3 :08pm Abdominal pain acute May 30, 2025 1:59pm Irritable bowel syndrome acute May 30, 2025 1:59pm Ischemic colitis acute May 1:59pm Duodenal stenosis inactive June 022024 1:36pm Dyspnea inactive June 02 1:36pm Pneumonia inactive June 02 1:36pm Failure to thrive acute July 01, 2025 7:22pm Protein calorie malnutrition acute July 01, 2025 7:22pm SHORE (dyspnea on exertion) chronic July 12, 2025 9:34am Nicotine dependence, cigarettes, in remission chronic July 12, 2025 9:34am Abdominal pain acute June 12:48pm AV node dysfunction acute 2024 1:47pm Cardiac defibrillator in place acute July 26, 2025 1:47pm Heart failure with reduced ejection fraction acute July 26, 2025 1:47pm Presence of biventricular implantable cardioverter-defibrillator acute 2024 1:47pm Abdominal pain acute August 06, 2025 2:41pm Nocturia acute July 2:41pm Overactive bladder acute gabbie 2024 2:41pm Urge incontinence acute Julemb er 2024 2:41pm Chronic constipation chronic Jul 2:41pm Urinary tract infection inactive S epteer 2024 2:41pm [facility] Work Phone: 1(665) 942-618905-30-2025 History and physical note [facility] Medical Records [place] [address] History & Physical Exam 04/20/25 1624 MR#: [id number] Acct: [id number] Name: MANSI CARO Rep #:[id number] : 1955 70 From: Alonso Marte MD PCP: Marci Lopez DO Status:ADM I N Location: TCU [place] [address] HPI - General General Date of Admission: 04/20/25 Date of Service: 04/20/25 Chief Complaint: Here for rehabilitation. HPI Narrative MANSI CARO, is a 70 Female who presents with followin04/19/2025 [facility] ED weakness. Walks with walker at baseline. Not eating, not drinking for weeks. Too weak to get OOB. Patient concerned with urinary tract infection. Bloodwork okay, urinalysis okay. Normal saline 1 liter IV fluid bolus given. unable to care for her at home. PT/OT for placement. 04/19/2025 Admit [facility]. PT/OT/CM for SNF placement. No reversible etiology for weakness found. 04/20/2025 Resident vomited twice, vomitus appeared to be food, antiemetics givenwhich made her loopy. 04/20/2025 Admit to TCU with debility, here for rehabilitation, strengthening, prior to discharge home with . 04/25/2025 Dr. Lockett planning EGD/colonoscopy for anemia, +hemoccult, ischemic colitis. Dr. Garcia planning cystoscopy in office, date unknown. [facility] Medical History (Updated 04/20/25 @ 16:34 by [...] (patent foramen ovale) Cardiac resynchronization therapy defibrillator ([employer] REP-D) in place Myocarditis Hyperlipidemia Hypertension Home Medications [...] 400 0.25 % eye 1 drp ophthalmic (emmett pierre) .q1hr PRN 01/23/25 Unknown History gel drops (Blink Gel Tears) Dry eyes ferrous sulfate 325 mg (65 mg 325 mg PO QDAY Supplemen t 02/13/25 04/20/25 08:30 History iron) tablet (Feosol) linaclotide 145 mcg capsule 145 mcg PO QAM Constipatio n #60 02/14/25 Unknown Rx (Linzess) caps hyoscyamine sulfate 0.125 mg tablet 0.125 mg PO TID DE N dyspepsia #90 03/05/25 Unknown Rx tabs [...] ___x_ GRD contraindicated. Reason contraindicated: stable chronic nursing home use. The following psychotropic medication was present [...] __x__ GRD contraindicated. 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 The following psychotropic medication was present [...] __x__ GRD contraindicated. 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 04/20/25 5797 Cosigner Signature (if applicable): CC: Dr. Alonso Marte MD; Marci Lopez DO~ Signed [facility]05-30-2025 [facility] Discharge summary [facility] Medical Records Department [address] [place] [address] Discharge Summary 04/20/25 1449 MR#: [id number] Acct: [id number] Name: MANSI CARO Rep #:[id number] : 1955 70 From: Maximo levin DO PCP: Marci Lopez DO Status:ADM I NO Location: [facility] [id number] Providers Date of Admission: 04/19/25 Date of [...] is a 70-year-old female who presented to [facility] ED on 04/19/2025 with worsening weakness. [...] in before D/C Order can be placed): [facility]way Facility Charges/Coding Visit Charges Inpatient E&M: 09390 Disch Hosp >30min 04/20/25 9415 Cosigner Signature (if applicable): CC: Dr. Maximo Orosco DO; Marci Lopez DO~ Signed [facility]05-30-2025 Discharge summary [facility] Medical Records Department [address] [place] [address] Transfer to [facility] MR#: [id number] Acct: [id number] Name: MANSI CARO Rep #:[id number] : 1955 70 From: Maximo levin DO PCP: John,Marci L. DO Status:ADM I NO Certification of patient admission REQUIRED AT TIME OF ADMISSION. I CERTIFY THAT POST-HOSPITAL ECF SERVICES ARE REQUIRED TO BE GIVEN ON AN IN-PATIENT BASIS BECAUSE OF THE ABOVE NAMED PATIENT'S NEED FOR FDC CARE ON A CONTINUING BASIS FOR THE CONDITION(S) FOR WHICH HE/SHE WAS RECEIVING IN-PATIENT HOSPITAL SERVICES PRIOR TO HIS/HER TRANSFER TO THE ECF. 04/20/25 1454 Diet Diet Order/Speech Therapy: INPATIENT [...] is a 70-year-old female who presented to [facility] ED on 04/19/2025 with worsening weakness. [...] in before D/C Order can be placed): Halfway Facility 04/20/25 1454 Cosigner Signature (if applicable): CC: Marci Lopez DO ~ [facility]05-30-2025 [facility]05-29-2025 History and physical note Author Maximo Orosco [facility] Note Date/Time April 19, 2025 2:36p m [facility] Medical Records Department [address] [place] [address] H&P Exam - Hospitalist 04/19/25 1124 MR#: [id number] Acct: [id number] Name: MANSI CARO Rep #:[id number] : 1955 70 From: Maximo levin DO PCP: Marci Lopez DO Status:ADM I NO Location: [facility] NE153-4 HPI - General General Date of Admission: 04/19/25 Date of Service: 04/19/25 Chief Complaint: Worsening weakness HPI Narrative MANSI CARO, is a 70 F who presented to [facility] ED on 04/19/2025 with worsening weakness. [...] this morning. No other concerns at thistime. [facility] Medical History Ischemic colitis [...] (patent foramen ovale) Cardiac resynchronization therapy defibrillator ([employer] REP-D) in place Myocarditis Hyperlipidemia Hypertension Home Medications [...] 0.125 mg tablet 0.125 mg PO TID DE N dyspepsia #90 03/05/25 Unknown Rx tabs [...] (Auto) 78.3 H, Lymph % (Auto) 10.4 L,Ogle % (Auto) 8.2, Eos % (Auto) 2.5, [...] Clarity Clear, Urine pH 6.5, Ur Specific [place] 1.010, Urine Protein 15 H, Urine Glucose [...] is a 70-year-old female who presented to [facility] ED on 04/19/2025 with worsening weakness. 1. Acute on chronic debility ? Admit under observation status to [facility]. PT/OT/case management consulted. Patient with chronic [...] 55 minutes. Charges/Coding Visit Charges Inpatient E&M: 89634 Init Hosp L2 04/19/25 1436 <Electronically signed by Maximo Orosco DO> Cosigner Signature (if applicable): CC: Dr. Maximo Orosco DO; Marci Lopez DO~ Signed [facility] Work Phone: 1(438) 145-766005-29-2025 History and physical note [facility] Medical Records Department [address] [place] [address] H&P Exam - Hospitalist 04/19/25 1124 MR#: [id number] Acct: [id number] Name: MANSI CARO Rep #:[id number] : 1955 70 From: Maximo levin DO PCP: Marci Lopez DO Status:ADM I NO Location: [facility] [id number] HPI - General General Date of Admission: 04/19/25 Date of Service: 04/19/25 Chief Complaint: Worsening weakness HPI Narrative MANSI CARO, is a 70 F who presented to [facility] ED on 04/19/2025 with worseningweakness. Patient [...] this morning. No other concerns at thistime. [facility] Medical History Ischemic colitis [...] (patent foramen ovale) Cardiac resynchronization therapy defibrillator ([employer] REP-D) in place Myocarditis Hyperlipidemia Hypertension Home Medications [...] 0.125 mg tablet 0.125 mg PO TID DE N dyspepsia #90 03/05/25 Unknown Rx tabs [...] (Auto) 78.3 H, Lymph % (Auto) 10.4 L,Ogle % (Auto) 8.2, Eos % (Auto) 2.5, [...] Clarity Clear, Urine pH 6.5, Ur Specific [place] 1.010, Urine Protein 15 H, Urine Glucose [...] is a 70-year-old female who presented to [facility] ED on 04/19/2025 with worsening weakness. 1. Acute on chronic debility ? Admit under observation status to [facility]. PT/OT/case management consulted. Patient with chronic [...] 55 minutes. Charges/Coding Visit Charges Inpatient E&M: 97015 Init Hosp L2 04/19/25 1436 Cosigner Signature (if applicable): CC: Dr. Maximo Orosco, DO; Marci Lopez DO~ Signed [facility]05-29-2025 Evaluation note* Diagnosis Onset Date Resolution Status Admit Date Generalized weakness acute April 19, 2025 11:26am [...] Ischemic colitis acute May 1:59pm Duodenal stenosis inactive June 022024 1:36pm Dyspnea inactive June 02 1:36pm Pneumonia inactive June 02 1:36pm Failure to thrive acute July 01, 2025 7:22pm Protein calorie malnutrition acute July 01, 2025 7:22pm [facility] Work Phone: 1(158) 873-403005-29-2025 Evaluation note* Diagnosis Onset Date Resolution Status Admit Date Generalized weakness acute April 19, 2025 11:26am [...] Ischemic colitis acute May 1:59pm Duodenal stenosis inactive June 022024 1:36pm Dyspnea inactive June 02 1:36pm Pneumonia inactive June 02 1:36pm Failure to thrive acute July 01, 2025 7:22pm Protein calorie malnutrition acute July 01, 2025 7:22pm SHORE (dyspnea on exertion) acute July 12, 2025 9:34am Nicotine dependence, cigarettes, in remission acute July 12, 2025 9:34am [facility] Work Phone: 1(522) 509-483105-29-2025 Evaluation note* Diagnosis Onset Date Resolution Status Admit Date Generalized weakness acute April 19, 2025 11:26am [...] Ischemic colitis acute May 1:59pm Duodenal stenosis inactive June 022024 1:36pm Dyspnea inactive June 02 1:36pm Pneumonia inactive June 02 1:36pm Failure to thrive acute July 01, 2025 7:22pm Protein calorie malnutrition acute July 01, 2025 7:22pm SHORE (dyspnea on exertion) chronic July 12, 2025 9:34am Nicotine dependence, cigarettes, in remission chronic July 12, 2025 9:34am Abdominal pain acute June 12:48pm [facility] Work Phone: 1(606) 636-112205-29-2025 Evaluation note* Diagnosis Onset Date Resolution Status Admit Date Generalized weakness acute April 19, 2025 11:26am [...] Ischemic colitis acute May 1:59pm Duodenal stenosis inactive June 022024 1:36pm Dyspnea inactive June 02 1:36pm Pneumonia inactive June 02 1:36pm Failure to thrive acute July 01, 2025 7:22pm Protein calorie malnutrition acute July 01, 2025 7:22pm SHORE (dyspnea on exertion) chronic July 12, 2025 9:34am Nicotine dependence, cigarettes, in remission chronic July 12, 2025 9:34am Abdominal pain acute June 12:48pm AV node dysfunction acute 2024 1:47pm Cardiac defibrillator in place acute July 26, 2025 1:47pm Heart failure with reduced ejection fraction acute July 26, 2025 1:47pm Presence of biventricular implantable cardioverter-defibrillator acute 2024 1:47pm [facility] Work Phone: 1([phone]) 884-457605-29-2025 Evaluation note* Diagnosis Onset Date Resolution Status Admit Date Generalized weakness acute April 19, 2025 11:26am [...] Ischemic colitis acute May 1:59pm Duodenal stenosis inactive June 022024 1:36pm Dyspnea inactive June 02 1:36pm Pneumonia inactive June 02 1:36pm Failure to thrive acute July 01, 2025 7:22pm Protein calorie malnutrition acute July 01, 2025 7:22pm SHORE (dyspnea on exertion) chronic July 12, 2025 9:34am Nicotine dependence, cigarettes, in remission chronic July 12, 2025 9:34am Abdominal pain acute June 12:48pm AV node dysfunction acute 2024 1:47pm Cardiac defibrillator in place acute July 26, 2025 1:47pm Heart failure with reduced ejection fraction acute July 26, 2025 1:47pm Presence of biventricular implantable cardioverter-defibrillator acute 2024 1:47pm Abdominal pain acute August 06, 2025 2:41pm Nocturia acute July 2:41pm Overactive bladder acute gabbie 2024 2:41pm [facility] 2:41pm Chronic constipation chronic Jul [facility]2024 2:41pm Urinary tract infection inactive [facility] 2024 2:41pm [facility] Work Phone: 1(634) 373-293205-29-2025 Discharge summary Author Romeo Padron [facility] Note Date/Time April 19, 2025 11:06 am [facility] Medical Records Department [address] [place] [address] Emergency Department Summary 04/19/25 MR#: [id number] Acct: [id number] Name: MANSI CARO Rep #:[id number] : 1955 70 From: Romeo Padron DO PCP: Marci Lopez DO Status:REG E R Location: ED ADDENDUM by Dr. Bossman Sanders DO on 04/19/25 at 1106 Patient care turned over to nh awaiting evaluation by family welfare social work professor for placement to longterm facility. Patient was evaluated by family welfare social work professor and it was recommended that patient be admitted for precertification and admission to longterm facility. Will discuss case with hospitalist to [...] infection she was brought in for evaluation [facility] Medical History Ischemic colitis History of [...] (patent foramen ovale) Cardiac resynchronization therapy defibrillator ([employer] REP-D) in place Myocarditis Hyperlipidemia Hypertension Home Medications [...] 0.125 mg tablet 0.125 mg PO TID DE N dyspepsia #90 03/05/25 Unknown Rx tabs [...] Oxygen Delivery Method Room Air Room Air 05/29/25 04:40 04/19/25 05:00 04/19/25 06:00 Temperature 98.4 [...] to go home and is agreeable to residential/rehab placement. As it is a weekday and morning hours the patient will be evaluated by physical therapy/Occupational Therapy in the ER and social work will be consulted as well. There is hopes that the patient will be able to be sent directly from the ER to a residential/rehab center. The patient and family were informed [...] 78.3 H Lymph % (Auto) 10.4 L Ogle % (Auto) 8.2 Eos % (Auto) 2.5 [...] Clarity Clear Urine pH 6.5 Ur Specific [place] 1.010 Urine Protein 15 H Urine Glucose (UA) 100 H Urine Ketones Negative Urine Occult Blood Negative Urine Nitrite Negative Urine Bilirubin Negative Urine Urobilinogen Normal Ur Leukocyte Esterase Negative Urine RBC 0 SEEN Urine WBC 0 SEEN Ur Squamous Epith Cells 0 SEEN Urine Bacteria 0 SEEN Urine Mucus 0 SEEN Management Discussion w/another healthcare provider: Hospitalist and community outreach worker/Case management Discharge Plan Triage Chief Complaint: [...] DO [Primary Care Provider] - Print Language: Puerto Rican What to do if you have Problems For any increased pain, shortness of breath, bleeding, nausea or vomiting, chestpain, or any unexpected problems, contact your Primary Care Provider. Call [facility] ([phone]) or report to the closest Emergency Room. Call 911 if necessary. 04/19/25 0633 <Electronically signed by Romeo Padron DO> Cosigner Signature (if applicable): CC: Marci Lopez DO ~ Signed [facility] Work Phone: 1(112) 967-282005-29-2025 Discharge summary [facility] Medical Records Department [address] [place] [address] Emergency Department Summary 04/19/25 MR#: [id number] Acct: [id number] Name: MANSI CARO Rep #:[id number] : 1955 70 From: Romeo Padron DO PCP: Marci Lopez DO Status:REG E R Location: ED ADDENDUM by Dr. Bossman Sanders DO on 04/19/25 at 1106 Patient care turned over to me awaiting evaluation by family welfare social work professor for placement to longterm facility. Patient was evaluated by family welfare social work professor and it was recommended that patient be admitted for precertification and admission to longterm facility. Will discuss case with hospitalist to [...] infection she was brought in for evaluation [facility] Medical History Ischemic colitis History of [...] (patent foramen ovale) Cardiac resynchronization therapy defibrillator ([employer] REP-D) in place Myocarditis Hyperlipidemia Hypertension Home Medications [...] 0.125 mg tablet 0.125 mg PO TID DE N dyspepsia #90 03/05/25 Unknown Rx tabs [...] Yes additional social history: - Song [facility] ED Constitutional Constitutional ED: Denies chills [...] to go home and is agreeable to residential/rehab placement. As it is a weekday and morning hours the patient will be evaluated by physical therapy/Occupational Therapy in the ER and social work will be consulted as well. There is hopes that the patient will be able to be sent directly from the ER to a residential/rehab center. The patient and family were informed [...] 78.3 H Lymph % (Auto) 10.4 L Ogle % (Auto) 8.2 Eos % (Auto) 2.5 [...] Clarity Clear Urine pH 6.5 Ur Specific [place] 1.010 Urine Protein 15 H Urine Glucose (UA) 100 H Urine Ketones Negative Urine Occult Blood Negative Urine Nitrite Negative Urine Bilirubin Negative Urine Urobilinogen Normal Ur Leukocyte Esterase Negative Urine RBC 0 SEEN Urine WBC 0 SEEN Ur Squamous Epith Cells 0 SEEN Urine Bacteria 0 SEEN Urine Mucus 0 SEEN Management Discussion w/another healthcare provider: Hospitalist and community outreach worker/Case management Discharge Plan Triage Chief Complaint: [...] DO [Primary Care Provider] - Print Language: Puerto Rican What to do if you have Problems For any increased pain, shortness of breath, bleeding, nausea or vomiting, chestpain, or any unexpected problems, contact your Primary Care Provider. Call [facility] ([phone]) or report tothe closest Emergency Room. Call 911 if necessary. 04/19/25 4852 Cosigner Signature (if applicable): CC: Marci Lopez DO ~ Signed [facility]05-14-2025 History of Present illness Narrative* Rubina [...] that CIED system is MR conditional: Yes, [employer] Remote programming PATIENT PRESENTS WITH AN IMPLANTABLE OR ATTACHED SOLAR CREW MEMBER: No RADIOLOGY DEPARTMENT: MR; Exam(s) Completed: Head: Routine Brain. Lavender Administered: No PERIPHERAL IV DATA: Not applicable SIGNED BY: DIONNA Shipman April 04, 2025 12:27 PM documented in this encounterSy[facility]05-14-2025 NoteHNO ID: [id number] Author: RUBINA VALDOVINOS CT Service: Radiology Author [...] that CIED system is MR conditional: Yes, [employer] Remote programming PATIENT PRESENTS WITH AN IMPLANTABLE OR ATTACHED SOLAR CREW MEMBER: No RADIOLOGY DEPARTMENT: MR; Exam(s) Completed: Head: Routine Brain. Lavender Administered: No PERIPHERAL IV DATA: Not applicable SIGNED BY: DIONNA Shipman April 04, 2025 12:27 PMSamaritan North Health [id number] Nurse Note* Janine Tompkins RN - 04/04/2025 [...] REVIEWED: YES PROCEDURE: MRI - Conditional Pacemaker [employer] Silo Filler Device - Settings: DOO 90 bpm Physiologic monitoring per standard operating procedure. See vital sign flowsheet. PERIPHERAL IV ACCESS: Not applicable PATIENT TOLERATED PROCEDURE: Without incident. PATIENT DISCHARGED TO: Home/Self Care SIGNED BY: TANIA Barnett Patient arrived here today for an MRI. Patients [employer] Pacemaker was placed in MRI safe mode by injection mold tooling technician & device. Vitals remained stable throughout - see flowsheet. MRI was completed and then pacemaker was taken out of MRI safe mode and tolerated well. Patient was discharged home with family. [facility]05-14-20[facility] Nurse Note* Janine Tompkins RN - 04/04/2025 [...] REVIEWED: YES PROCEDURE: MRI - Conditional Pacemaker [employer] Silo Filler Device - Settings: DOO 90 bpm Physiologic monitoring per standard operating procedure. See vital sign flowsheet. PERIPHERAL IV ACCESS: Not applicable PATIENT TOLERATED PROCEDURE: Without incident. PATIENT DISCHARGED TO: Home/Self Care SIGNED BY: TANIA Barnett Patient arrived here today for an MRI. Patients [employer] Pacemaker was placed in MRI safe mode by injection mold tooling technician & device. Vitals remained stable throughout - see flowsheet. MRI was completed and then pacemaker was taken out of MRI safe mode and tolerated well. Patient was discharged home with family. documented in this encounterSycamore Medical Center05-12-2025 History of Present illness Narrative* Jelly Sanchez [...] PATIENT PRESENTS WITH AN IMPLANTABLE OR ATTACHED SOLAR CREW MEMBER: No RADIOLOGY DEPARTMENT: General X-ray: Exam(s) Completed: Chest X-Ray PERIPHERAL IV DATA: Not applicable SIGNED BY: Rayne Khoury April 02, 2025 9:34 AM documented in this encounterSycamore Medical Center05-12-2025 NoteHNO ID: [id number] Author: JELLY SANCHEZ Tech Service: ? Author Type: Automotive Technician Instructor Type: Progress Notes Filed: 04/02/2025 09:34 Note [...] PATIENT PRESENTS WITH AN IMPLANTABLE OR ATTACHED SOLAR CREW MEMBER: No RADIOLOGY DEPARTMENT: General X-ray: Exam(s) Completed: Chest X-Ray PERIPHERAL IV DATA: Not applicable SIGNED BY: Rayne Khoury April 02, 2025 9:34 AMSamaritan North Health [id number] Telephone encounter Note* Telephone Encounter - Soumya Moss RN - 03/28/2025 9:45 AM EDT Voicemail received March 27, 2025 1458 Spouse calling to check on status of [place]. Call to pharmacy, [facility] has been authorized. They will be reaching out to patient to discuss co-pay. [facility]05-07-2025 Miscellaneous Notes* Telephone Encounter - Soumya Moss RN - 03/28/2025 9:45 AM EDT Voicemail received March 27, 2025 1458 Spouse calling to check on status of [place]. Call to pharmacy, [facility] has been authorized. They will be reaching out to patient to discuss co-pay. documented in this encounterSycamore Medical Center04-19-2025 Radiology Diagnostic study note [facility] Imaging Services [address] [place] [address] [id number] HIP, UNI W/ Pelvis 2-3 Views MR#: [id number] Acct: [id number] Name: MANSI CARO Rep #: [id number] : 1955 F 70 From: Vickie Coles MD PCP: Marci Lopez DO Status: REG E R Study:HIP, UNI W/ Pelvis 2-3 Views Date of Ex am: 03/10/25 Exam# [id number] Ordering Dr: Mellisa Taylor PROCEDURE: HIP, UNI [...] IMPRESSION: Negative left hip radiographs. Reading Location: [id number] CC: Marci Lopez DO; AMRIK Harrison ~ Marketing Technology Specialist: Signed [facility]04-19-2025 Telephone encounter Note* Telephone Encounter - Linda Valdez RN - 03/10/2025 8:02 AM EDT S-Patient and patient spouse calling in re: patient fell yesterday and has Left hip pain . B-Happened yesterday A-states having hard time walking due to pain, No COVID Symptoms. Has a brouis, no other sites withpain R-Scheduled Same Day After hours appt today @ 10:00a 03/10/25 @ [facility], address provided Reason for Disposition MILD weakness (i.e., does not interfere with ability to work, go to school, normal activities) (Exception: Mild weakness is a chronic symptom.) Answer Assessment - Initial Assessment Questions . Protocols used: Falls and Pwzqlyc-AFTCD-VM [facility] [id number] Miscellaneous Notes* Telephone Encounter - Linda Valdez RN - 03/10/2025 8:02 AM EDT S-Patient and patient spouse calling in re: patient fell yesterday and has Left hip pain . B-Happened yesterday A-states having hard time walking due to pain, No COVID Symptoms. Has a brouis, no other sites withpain R-Scheduled Same Day After hours appt today @ 10:00a 03/10/25 @ [facility], address provided Reason for Disposition MILD weakness (i.e., does not interfere with ability to work, go to school, normal activities) (Exception: Mild weakness is a chronic symptom.) Answer Assessment - Initial Assessment Questions . Protocols used: Falls and Ztwgroo-KKFYR-IZ documented in this [facility]04-18-2025 Telephone encounter Note* Telephone Encounter - Dipti Stewart - 03/09/2025 12:14 PM EDT Spouse called inquiring status of RX for valbenazine (INGREZZA) 40 mg capsule. Informed Spouse that order was signed on 02/27/2025. Order has been faxed to [facility] Special[facility]: [phone]. Spouse provided phone number for pharmacy ([phone]) to follow up on this request. Dipti Stewart [facility]04-18-2025 Miscellaneous Notes* Telephone Encounter - Dipti Stewart - 03/09/2025 12:14 PM EDT Spouse called inquiring status of RX for valbenazine (INGREZZA) 40 mg capsule. Informed Spouse that order was signed on 02/27/2025. Order has been faxed to [facility] Specialty Pharmacy: [phone]. Spouse provided phone number for pharmacy ([phone]) to follow up on this request. Dipti Stewart documented in this encounterCleveland [id number] Telephone encounter Note * Telephone Encounter - Kalen Casey RT(R) - 03/01/2025 3:27 PM EDT Kyra, You have ordered an MRI on this patient with an implanted cardiac device. To clear the patient, as per our policy, patient will need a 2 view CXR prior to MRI scan. CXR is used to confirm there are no broken or abandoned leads. Thank you, Kalen Hall(R)(MR),[facility] MRI Safety Team [facility]04-10-2025 Miscellaneous Notes* Telephone Encounter - Kalen Casey RT(R) - 03/01/2025 3:27 PM EDT Kyra, You have ordered an MRI on this patient with an implanted cardiac device. To clear the patient, as per our policy, patient will need a 2 view CXR prior to MRI scan. CXR is used to confirm there are no broken or abandoned leads. Thank you, Kalen Hall(Bairon)(MR),[facility] MRI Safety Team documented in this encounterSycamore Medical Center04-09-2025 NoteHNO ID: [id number] Author: LEYLA MURPHY MD Service: ? Author Type: Physician Type: Progress Notes Filed: 02/28/2025 09:12 Note Text: [facility] - FOLLOW UP EVALUATION The patient consented to the use of ambient AI software for draft documentation of the visit consistent with [facility]?s Notice of Privacy Practices. Jesus Manuel Freitas DO, DO [address] [facility] [address] Dear Jesus Manuel Freitas DO, DO: I [...] that cannabis use during a visit to [place] temporarily alleviated her symptoms. She reports difficulty [...] 02/27/2025 in N (more content not included)... [facility]04-09-2025 History of Present illness Narrative* Leyla Murphy MD - 02/28/2025 8:58 AM EDT [facility] - FOLLOW UP EVALUATION The patient consented to the use of ambient AI software for draft documentation of the visit consistent with [facility] s Notice of Privacy Practices. Jesus Manuel Freitas DO, DO [address] [facility] [address] Dear Jesus Manuel Freitas DO, DO: I [...] that cannabis use during a visit to [place] temporarily alleviated her symptoms. She reports difficulty [...] Row Office Visit from 02/27/2025 in Neurology [facility] from 10/20/2023 in Neurological [facility] T Score 26.7 32.4 [...] and is willing to rechallenge [facility] TANIA Current Outpatient Medications Medication Sig Acetaminophen 500 [...] 2+ 2+ Achilles 1+ 1+ Coordination Right: Aajbda-ak-nzin normal. Rapid alternating movement normal. Mmco-cc-jrdd normal.Left: Neutob-hr-qxhm normal. Rapid alternating movement normal. Tapz-du-ubsr normal. Gait Casual gait: Wide stance. Reduced [...] Ingrezza 40 mg daily; prescription sent to [facility] for processing. - Patient and family educated on potential side effects and the process of obtaining medication through a specialty pharmacy. The following are the current problems noted and addressed during this visit: Essential tremor (primary encounter diagnosis) Dyskinesia, tardive Plan 02/27/2025 Visit: - Start taking Ingrezza 40 mg daily for mouth movements; prescription sent to [facility]. Once this is controlled we [...] or around: 05/29/25 Level of service : 04670 (40-68 min). Time spent 67 min on the day of service, which included preparing to see the patient, clef-co-iuvi patient care, completing clinical documentation, obtaining and/or [...] Sincerely, Leyla Murphy MD documented in this encounterSycamore Medical Center04-09-2025 History of Present illness Narrative* Michel Ibrahim - 02/28/2025 7:32 AM EDT [facility] received prescription(s) for Ingrezza from Leyla Murphy's office. Benefits investigation was conducted, indicating that a prior authorization is required by patient's insurance plan with [employer]. Encounter will be updated once prior authorization has been submitted by [facility]. Michel Ibrahim CPhT Neurology, Cardiology & Infectious Disease [facility] documented in this encounterSycamore Medical Center04-09-2025 NoteHNO ID: [id number] Author: WESLEY HAYES jose Service: ? Author Type: Pharmacist Type: Progress Notes Filed: 03/29/2025 10:22 Note Text: [facility] received prescription(s) for Autedo from Leyla Murphy's office. Benefits investigation was conducted, indicating that a prior authorization is required by patient's insurance plan with [email or web address]. PA was approved with details listed below: Plan Name: [employer] Approval Dates: 03/13/25 - 11/21/25 Pt's copay is $196. Shipment has been arranged, and pt will receive medication(s) on 03/30. Pt has been instructed to follow-up with clinic to confirm start date. A full drug interaction report was conducted, and risk of additive COMBAT RIFLE CREWMEMBER depression with Percocet was discussed with spouse. [...] and is willing to rechallenge [facility] RN Problem List Noted Noted By Resolved [...] colonic polyps 02/21/2015 Guy Mcgarry MD 02/21/2015 Automotive Technician Instructor Assessment Patient confirmed: Yes Med/dose confirmed: Yes Supplies needed: Welcome packet Copay amount: 196 Copay form of payment: Credit card on file Payment confirmed: Yes Delivery method: FedEx Signature required: Waived on patient request Delivery address: [address] [place] [address] Delivery date: 03/30/25 Questions or concerns for the pharmacist?: Yes Patient questions/concerns: Medication cost, Medication dose, Medication route, Medication storage, Side effects, Delivery Did you have any side effects believed to be related to this medication, that resulted in hospitalization?: No [facility] CLINICAL ASSESSMENT - NEUROLOGY V7: Assessment to use: Initial Vaccination status assessment at initiation as andra (more content not included)...[facility]04-09-2025 NoteHNO ID: [id number] Author: ?, ?, ? Service: ? Author Type: ? Type: Progress Notes Filed: 03/13/2025 08:39 Note Text: [facility] received prescription(s) for Autedo from Leyla Murphy's office. Benefits investigation was conducted, indicating that a prior authorization is required by patient's insurance plan with [email or web address]. Note will be updated once prior authorization has been submitted. Jose Taveras CPhT (Dee) [facility] Neurology/Cardiology/Infections Disease [facility]25 NoteHNO ID: [id number] Author: ?, ?, ? Service: ? Author Type: ? Type: Progress Notes Filed: 03/16/2025 15:10 Note Text: [facility] received prescription(s) for Austedo from Dr. Murphy's office. Benefits investigation was conducted, indicating that a prior authorization is required. PA was approved with details listed below. Plan Name: [email or web address] Medicare Approval Dates: 03/13/25 - 11/21/25 Prescriptions will now be processed through [facility] for determination of next steps. Estefany Anguiano CPhT F Specialty Pharmacy, Neurology, Cardiology, AND Infectious Disease P: [phone] F: [phone]04-09-2025 NoteHNO ID: [id number] Author: ?, ?, ? Service: ? Author Type: ? Type: Progress Notes Filed: 03/07/2025 10:28 Note Text: PA was initiated and pending review. Plan Name: [email or web address] Medicare Plan Agent/Rios: [id number] Case: [id number] Timeline: Linda Ibrahim CPhT Neurology, Cardiology AND Infectious Disease [facility]04-09-2025 NoteHNO ID: [id number] Author: ?, ?, ? Service: ? Author Type: ? Type: Progress Notes Filed: 02/28/2025 07:34 Note Text: [facility] received prescription(s) for Ingrezza from Leyla Murphy's office. Benefits investigation was conducted, indicating that a prior authorization is required by patient's insurance plan with [employer]. Encounter will be updated once prior authorization has been submitted by [facility]. Michel Ibrahim CPhT Neurology, Cardiology AND Infectious Disease [facility]04-[facility]-2025 NoteHNO ID: [id number] Author: WESLEY HAYES RP Service: ? Author Type: Pharmacist Type: Progress Notes Filed: 03/09/2025 16:31 Note Text: [facility] received prescription(s) for Ingrezza from Leyla Murphy's office. Benefits investigation was conducted, indicating that a prior authorization is required by patient's insurance plan with [employer]. PA was denied with details listed below. Plan Name: [employer] Medicare Plan Agent/Rios: [id number] Case: [id number] Phone/ / [phone] Case: Denial reason: Full denial letter has been scanned into patients chart. [facility] will review and assess if appeal is appropriate. Note will be updated accordingly. Wesley Hayes [facility]04-08-2025 Telephone encounter Note * Telephone Encounter - Dipti Stewart - 02/27/2025 4:54 PM EDT Patient's spouse reports that Patient has a DEALER SALES REP-D implant (Cardiac Resynchronization Therapy with Defibrillator). Per scheduling protocol, staff message forwarded to Imaging [employer]plants pool to contact Patient for appointment coordination/scheduling. Patient/Spouse will be contacted within 4 business days. Dipti Stewart [facility]04-08-2025 Miscellaneous Notes* Telephone Encounter - Dipti Stewart - 02/27/2025 4:54 PM EDT Patient's spouse reports that Patient has a DEALER SALES REP-D implant (Cardiac Resynchronization Therapy with Defibrillator). Per scheduling protocol, staff message forwarded to Imaging Implants pool to contact Patient for appointment coordination/scheduling. Patient/Spouse will be contacted within 4 business days. Dipti Stewart documented in this encounterSycamore Medical Center04-08-2025 Instructions* Patient Instructions* Leyla Murphy MD - 02/27/2025 4:44 PM EDT It was a pleasure to see you today. We addressed the following diagnoses: Essential tremor (primary encounter diagnosis) Dyskinesia, tardive My recommendations are as follows: - Start taking Ingrezza 40 mg daily for mouth movements; prescription sent to [facility]. Once this is controlled we [...] or you can send a message through [employer]. You can also now schedule and select appointments through [employer]. Leyla Murphy MD documented in this encounterSycamore Medical Center03-25-2025 Evaluation note* Diagnosis Onset Date Resolution Status [...] artery acute May 29, 2025 3 :08pm [facility] [employer] [facility] Work Phone: 1(631) 201-669903-25-2025 Evaluation note* Diagnosis Onset Date Resolution Status [...] Abdominal pain acute May 30, 2025 1:59pm [facility] Work Phone: 1(439) 155-858103-25-2025 Evaluation note* Diagnosis Onset Date Resolution Status [...] 2025 1:59pm Ischemic colitis acute May 1:59pm [facility] Work Phone: 1(670) 575-220303-25-2025 Evaluation note* Diagnosis Onset Date Resolution Status [...] 02 1:36pm Pneumonia inactive June 02 1:36pm [facility] Work Phone: 1(541) 392-985903-09-2025 Telephone encounter Note* Telephone Encounter - Sari Parra RN - 01/28/2025 2:35 PM EDT S: Patient's spoke with [facility] nurse regarding medication concern B: Onset [...] unable toanswer question Protocols used: Medication Question Eehm-APNTI-PN [facility] [id number] Miscellaneous Notes* Telephone Encounter - Sari Parra RN - 01/28/2025 2:35 PM EDT S: Patient's spoke with [facility] nurse regarding medication concern B: Onset [...] a day was filled and picked up. [facility] RN relayed the message back to the . Patient's husbandunderstands care advice. No further needs at this time. Patient's instructed to call back with new or worsening symptoms. Reason for Disposition [1] Caller has NON-URGENT medicine question about med that PCP prescribed AND [2] triager unable toanswer question Protocols used: Medication Question [id number]-[id number]-ZN documented in this encounterSACMC Healthcare System [id number] Evaluation note* Diagnosis Onset Date Resolution Status [...] Chronic anemia chronic April 25, 2025 6:41am [facility] Work Phone: 1(895) 340-349802-28-2025 Telephone encounter Note* Telephone Encounter - Dipti [...] has been notified of appt change via [employer] message. Dipti Stewart [facility]02-28-2025 Miscellaneous Notes* Telephone Encounter - Dipti Stewart [...] has been notified of appt change via [employer] message. Dipti Stewart documented in this encounterSycamore Medical Center02-28-2025 History of Present illness Narrative* Mellisa Coats [...] PATIENT PRESENTS WITH AN IMPLANTABLE OR ATTACHED SOLAR CREW MEMBER: No RADIOLOGY DEPARTMENT: CT; Exam(s) Completed: Chest PERIPHERAL IV DATA: Not applicable SIGNED BY: TECHNOLOGIST Bhavya January 19, 2025 10:06 AM documented in this encounterSycamore Medical Center02-28-2025 NoteHNO ID: [id number] Author: MELLISA COATS TECHNOLOGIST Service: ? Author [...] PATIENT PRESENTS WITH AN IMPLANTABLE OR ATTACHED SOLAR CREW MEMBER: No RADIOLOGY DEPARTMENT: CT; Exam(s) Completed: Chest PERIPHERAL IV DATA: Not applicable SIGNED BY: Mellisa Coats, TECHNOLOGIST January 19, 2025 10:06 [facility]02-27-2025 Evaluation note* Diagnosis Onset Date Resolution Status [...] Chronic constipation chronic Nirmal h 2024 8:26am [facility] Work Phone: 1(192) 268-568002-27-2025 Evaluation note* Diagnosis Onset Date Resolution Status Admit Date Ischemic cardiomyopathy acute 2024 1:19pm Presence of biventricular implantable cardioverter-defibrillator [...] Generalized weakness acute April 19, 2025 11:26am [facility] Work Phone: 1(760) 729-958702-27-2025 Evaluation note* Diagnosis Onset Date Resolution Status [...] Chronic anemia chronic April 25, 2025 6:41am [facility] Work Phone: 1([phone]) 701-672101-07-2025 Evaluation note* Diagnosis Onset Date Resolution Status [...] Chronic constipation chronic Nirmal h 2024 8:26am [facility] Work Phone: 1(769) 196-246901-03-2025 Telephone encounter Note* Telephone Encounter - Becky Diaz - 11/24/2024 12:43 PM EST Name of caller: Song Contact phone number: [phone] Relationship to Patient: spouse/SO Provider: John Practice: [facility] [place], operated [facility] Chief Complaint/Reason for Call: Patient , Beatrice, is calling to follow up with Dr. Lopez after patient appointment with her Gasteoenterologist. He is requesting a call back to discuss what happened at her appointment regarding her colitis diagnosis. He can be reached at [phone]. Best time of day caller can be reached: Any Patient advised that office/PCP has 24-48 business hours to return their call: N/A [facility] [id number] Miscellaneous Notes* Telephone Encounter - Becky Diaz - 11/24/2024 12:43 PM EST Name of caller: Song Contact phone number: [phone] Relationship to Patient: spouse/SO Provider: John Practice: [facility] [place], [facility] Chief Complaint/Reason for Call: Patient , Beatrice, is calling to follow up with Dr. Lopez after patient appointment with her Gasteoenterologist. He is requesting a call back to discuss what happened at her appointment regarding her colitis diagnosis. He can be reached at [phone]. Best time of day caller can be reached: Any Patient advised that office/PCP has 24-48 business hours to return their call: N/A documented in this [facility]01-02-2025 Evaluation note* Diagnosis Onset Date Resolution Status Admit Date Chronic abdominal pain inactive Ja nuary 2024 1:56pm Ischemic cardiomyopathy acute J anuary 2024 1:48pm Presence of biventricular implantable cardioverter-defibrillator acute ry 2024 1:48pm Syncope and collapse acute [...] Chronic constipation chronic Nirmal h 2024 8:26am [facility] Work Phone: 1(395) 258-797612-26-2024 Telephone encounter Note* Telephone Encounter - Karis Bolden - 11/16/2024 10:17 AM EST Name of caller: Song Contact phone number: [phone] Relationship to Patient: spouse/SO Provider: Dr Marci Lopez [place] [facility] [place] Complaint/Reason for Call: Song called to let doctor know appointment is set for 12/19/24 with vascular surgeon, and is not sure if that's soon enough. Please advise Best time of day caller can be reached: PM [facility] CenterVmhdjj18-77-8524 Miscellaneous Notes* Telephone Encounter - Karis Bolden - 11/16/2024 10:17 AM EST Name of caller: Song Contact phone number: [phone] Relationship to Patient: spouse/SO Provider: Dr Marci Lopez Practice[place] [facility] Chief Complaint/Reason for Call: Song called to let doctor know appointment is set for 12/19/24 with vascular surgeon, and is not sure if that's soon enough. Please advise Best time of day caller can be reached: PM documented in this [facility]12-24-2024 Telephone encounter Note* Telephone Encounter - Ghazala Gusman MD - 11/14/2024 4:08 PM EST Needs to come back in to reassess. In the meantime- can increase from 5mg qid to 10mg tid- messaged patient. [facility]12-24-2024 Miscellaneous Notes* Telephone Encounter - Ghazala Gusman [...] to help with this? Pharmacy: [facility] Pharmacy in [place], [place] documented in this encounterSycamore Medical Center12-24-2024 Telephone encounter Note * Telephone Encounter - [...] stable. F/u 12 months Janee Argueta RN [facility]12-23-2024 Telephone encounter Note* Telephone Encounter - Humaira [...] to help with this? Pharmacy: [facility] Pharmacy in [place], [place] [facility]11-28-2024 Evaluation note* Diagnosis Chronic kidney disease, stage 3a (HCC)- Primary documented in this encounter [facility] [id number] Telephone encounter Note* Telephone Encounter - Antonio Lockhart - 10/06/2024 4:26 PM EST Name of caller: Song Contact phone number: [phone] Relationship to Patient: spouse/SO Provider: Dr. Lopez Practice: [facility] Chief Complaint/Reason for Call: Song wanted to ask Dr. Lopez to consider long covid for patient. States all the symptoms are there. Requesting a call back to discuss. Please advise. Best time of day caller can be reached: any Patient advised that office/PCP has 24-48 business hours to return their call: [facility]11-15-2024 Miscellaneous Notes* Telephone Encounter - Antonio Lockhart - 10/06/2024 4:26 PM EST Name of caller: Song Contact phone number: [phone] Relationship to Patient: spouse/SO Provider: Dr. Lopez [...] to return their call: documented in this [facility]09-22-2024 NoteHNO ID: [id number] Author: ROXANNE BOO RT(R) Service: ? Author Type: Automotive Technician Instructor Type: Progress Notes Filed: 08/13/2024 11:59 Note [...] PATIENT PRESENTS WITH AN IMPLANTABLE OR ATTACHED SOLAR CREW MEMBER: NA CREATININE: Creatinine Date Value Ref Range [...] 1150 PATIENT DISCHARGED TO: Ambulatory patient, left [place] department area. A Diagnostic radioactive procedure has [...] PATIENT PRESENTS WITH AN IMPLANTABLE OR ATTACHED SOLAR CREW MEMBER: NA CREATININE: Creatinine Date Value Ref Range [...] be found usingthis link: [email or web address] 20Diagnostic%20Nuclear%20Medicine%20Procedures.pdf SIGNATURE: RT Daniel(Bairon) PATIENT NAME: Mansi Caro DATE: August 13, 2024 TIME: 11:58 AM PAGER/CONTACT #: documented in this encounterSycamore Medical Center09-14-2024 Telephone encounter Note * Telephone Encounter - [...] yesterday was 80, and oxygen level 99%, bvgzobfnl17%. States her weight was up 2 pounds from yesterday and will give her lasix 20mg prn per order. Eating and drinking as normal. Bowel as normal with Miralax, urine as normal. States that senior physician states he thinks her left side pain [...] Protocols used: Information Only Call - No Vlaqra-JWSGB-JF [facility] [id number] Miscellaneous Notes* Telephone Encounter - Dulce Maria [...] yesterday was 80, and oxygen level 99%, bzbibwjnw57%. States her weight was up 2 pounds from yesterday and will give her lasix 20mg prn per order. Eating and drinking as normal. Bowel as normal with Miralax, urine as normal. States that senior physician states he thinks her left side pain [...] Protocols used: Information Only Call - No Dckiwp-WOHBD-HG documented in this [facility]09-13-2024 Telephone encounter Note* Telephone Encounter - Anna Zarco RN - 08/04/2024 12:52 PM EDT S: Patient , Song, spoke with [facility] nurse regarding no improvement on weakness or fatigue B: Onset of symptoms/concern 08/04/24 A: States they wanted to give status update on patient. Song states no improvement of weakness or fatigue after seeing buckle sorter or vascular surgeon. States patient will be seeing senior physician today at 230. Declined triage as they [...] Protocols used: Information Only Call - No Nnmicf-WPEHZ-JV [facility] CenterHlcqdh78-10-1394 Miscellaneous Notes* Telephone Encounter - Anna Zarco RN - 08/04/2024 12:52 PM EDT S: Patient , Song, spoke with [facility] nurse regarding no improvement on weakness or fatigue B: Onset of symptoms/concern 08/04/24 A: States they wanted to give status update on patient. Song states no improvement of weakness or fatigue after seeing buckle sorter or vascular surgeon. States patient will be seeing senior physician today at 230. Declined triage as they [...] Protocols used: Information Only Call - No Qerjeb-GQJFG-TB documented in this [facility]08-30-2024 History of Present illness Narrative* Yi Caal [...] PATIENT PRESENTS WITH AN IMPLANTABLE OR ATTACHED SOLAR CREW MEMBER: N/A RADIOLOGY DEPARTMENT: CT; Exam(s) Completed: Chest PERIPHERAL IV DATA: Not applicable SIGNED BY: DIONI Mack) July 21, 2024 11:07 AM documented in this encounterSycamore Medical Center08-30-2024 NoteHNO ID: [id number] Author: YI CAAL RT(R) Service: ? Author [...] PATIENT PRESENTS WITH AN IMPLANTABLE OR ATTACHED SOLAR CREW MEMBER: N/A RADIOLOGY DEPARTMENT: CT; Exam(s) Completed: Chest PERIPHERAL IV DATA: Not applicable SIGNED BY: Yi Caal, RT(R) July 21, 2024 11:07 [facility] Telephone encounter Note * Telephone Encounter - Deonna Sommer - 07/11/2024 3:20 PM EDT Name of caller: Ashtyn Contact phone number: [phone] Relationship to Patient: [place] Radiology Provider: Dr. Lopez Practice: [facility] Chief Complaint/Reason for Call: Ashtyn from [facility] called in regards to a message they received from the office and they are not sure what this was in regards to. Ashtyn is requesting a call back and they can be reached at #[phone]. Please advise. Best time of day caller can be reached: Any Patient advised that office/PCP has 24-48 business hours to return their call: No [facility] [id number] Miscellaneous Notes* Telephone Encounter - Deonna Sommer - 07/11/2024 3:20 PM EDT Name of caller: Ashtyn Contact phone number: [phone] Relationship to Patient: [place] Radiology Provider: Dr. Lopez Practice: [facility] Chief Complaint/Reason for Call: Ashtyn from [facility] called in regards to a message they received from the office and they are not sure what this was in regards to. Ashtyn is requesting a call back and they can be reached at #[phone]. Please advise. Best time of day caller can be reached: Any Patient advised that office/PCP has 24-48 business hours to return their call: No documented in this encounterSACMC Healthcare System [id number] Telephone encounter Note* Telephone Encounter - Bill Deluca RN - 07/11/2024 12:14 PM EDT S: Patient's Song spoke with [facility] nurse regarding patient's xray, and referral B: Onset of symptoms/concern today A: Song wants to discuss the result of the patient's xray, and state he with the patient's community outreach worker and was advised to see a buckle sorter. R: Please call Song at his # [phone] to discuss these issues. Patient understands care advice. No further needs at this time. Patient instructed to call back with new or worsening symptoms. Reason for Disposition [1] Follow-up call from patient regarding patient's clinical status AND [2] information urgent Protocols used: PCP Call - No [id number] [id number] Miscellaneous Notes* Telephone Encounter - Bill Deluca RN - 07/11/2024 12:14 PM EDT S: Patient's Song spoke with CAC nurse regarding patient's xray, and referral B: Onset of symptoms/concern today A: Song wants to discuss the result of the patient's xray, and state he with the patient's community outreach worker and was advised to see a buckle sorter. R: Please call Song at his # [phone] to discuss these issues. Patient understands care advice. No further needs at this time. Patient instructed to call back with new or worsening symptoms. Reason for Disposition [1] Follow-up call from patient regarding patient's clinical status AND [2] information urgent Protocols used: PCP Call - No [id number] documented in this encounterSAC[facility] [id number] Telephone encounter Note* Telephone Encounter - Jennifer Woods - 06/28/2024 8:08 AM EDT Name of caller: Song Contact phone number: [phone] Relationship to Patient: Spouse Provider: Practice: Chief Complaint/Reason for Call: Patients Spouse called in to cancel appointment today at 10 am forLab work. Spouse stated he just got home with the Patient from the Emergency Room. Spouse stated the Patient had some labs done in the [place] [facility] and wanted to inform the doctor. Please advise. Best time of day caller can be reached: N/A Patient advised that office/PCP has 24-48 business hours to return their call: N/A [id number] Miscellaneous Notes* Telephone Encounter - Jennifer Woods - 06/28/2024 8:08 AM EDT Name of caller: Song Contact phone number: [phone] Relationship to Patient: Spouse Provider: Practice: Chief Complaint/Reason for Call: Patients Spouse called in to cancel appointment today at 10 am forLab work. Spouse stated he just got home with the Patient from the Emergency Room. Spouse stated the Patient had some labs done in the [place] [facility] and wanted to inform the doctor. Please advise. Best time of day caller can be reached: N/A Patient advised that office/PCP has 24-48 business hours to return their call: N/A documented in this [facility]06-26-2024 History of Present illness Narrative* Ghazala Gusman [...] noted at rest but better with activity. DEALER SALES REP D placed on 05/12/22. Ongoing issues: Feeling loopy with baclofen with dose increase but helped with hand . Was on 10mg tid, just reduced to 5mg bid and 10mg hs. And going to see how reacts. Seen recently by PCP TFTs are going to be checked d/t fatigue Recent dentist and eye doctor visits. She is doing baclofen 5mg qid and aib. 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 Fall 2 years ago and tooth fx- new implants working on over time. ER visit 09/2023 and dx with TIA x 2 H/o ischemic colitis and diverticulitis in about 03/2024- now on daily miralax Had issues with hypokalemia and dehydration with that hosptilzation at [facility] Recent cataract removal b/l No new [...] 95/58 Pulse 72 Ht 172.7 cm (5' 8") Wt 58.2 kg (128 lb 6.4 oz) [...] which included preparing to see the patient, pwzi-kq-pmnl patient care, completing clinical documentation, performing a medically appropriate examination, counseling and educating the patient/family/caregiver, and ordering medications, tests,or procedures. documented in this [facility] Discharge summary Author [facility] March 13, 2024 5:55pm Note Date/Time March 13, 2024 5:5 0pm [facility] Medical Records Department [address] [place] [address] Discharge Summary 03/13/24 1747 MR#: [id number] Acct: [id number] Name: MANSI CARO Rep #:[id number] : 1955 69 From: Alonso Marte MD PCP: Dr. Adrienne Byers DO Status:ADM IN Location: [place] [address] Providers Date of Admission: 02/29/24 Primary Care [...] Depression - Escitalopram 10mg daily, stable chronic nursing home use, GDR not recommended. * Diabetes Mellitus [...] dischargehome with . Discharge home with 03/15/2024, [facility] PT/OT/ST/SN. Physical Exam Const alert [...] pain Additional Instructions: Discharge home with 03/15/2024, [facility] PT/OT/ST/SN. Please Follow Up With: FriendShan DO When: 4 weeks. Meaningful Use Info [...] Instructions / Restrictions: Discharge home with 03/15/2024, [facility] PT/OT/ST/SN. Discharge Orders/Prescriptions Prescriptions: New [...] can be placed): Home Health Service 03/13/24 9163 <Electronically signed by Alonso Marte MD> Cosigner Signature (if applicable): CC: Dr. Adrienne Byers DO; Dr. Alonso Marte MD~ Signed [facility] Work Phone: 1(957) 180-376904-10-2024 Progress note Author [facility] March 01, 2024 4:01pm Note Date/Time March 01, 2024 2:5 6pm [facility] Medical Records Department [address] [place] [address] Progress Note - Pharmacy 03/01/24 1452 MR#: [id number] Acct: [id number] Name: MANSI CARO Rep #:[id number] : 1955 69 From: Carlotta Singletary PCP: Dr. Adrienne Byers DO Status:ADM IN Location: [place] [address] Documented by User: Carlotta Singletary 03/01/24 15:37 [...] 10 Mg Tablet PO 5 mg BID [facility] Administration Bisacodyl 5 mg 03/01/24 07:50 Bisacodyl 5 Mg Tablet PO BID PRN Constipation Budesonide 9 mg 03/01/24 10:00 03/01/24 08:47 Budesonide 3 Mg Capsule.Ec PO 9 mg DAILY [facility] Administration Calcium/Vitamin D 1 tablet 02/29/24 17:00 03/01/24 08:49 Calcium Carb/Vitamin D 1 Tablet Tablet PO 1 tablet BIDCM [facility] Administration Cholecalciferol 50 mcg 02/29/24 22:00 02/29/24 22:02 Cholecalciferol (Vit D3) 25 Mcg Tablet (1,000 Units) [facility] Clonazepam 1 mg 02/29/24 22:00 02/29/24 21:57 Clonazepam 1 Mg Tablet PO 1 mg QHS [facility] Administration Clopidogrel Bisulfate 75 mg 03/01/24 10:00 03/01/24 08:53 Clopidogrel Bisulfate 75 Mg Tablet PO 75 mg DAILY [facility] Administration Dicyclomine HCl 20 mg 02/29/24 16:45 03/01/24 11:27 Dicyclomine 10 Mg Capsule PO 20 mg TIDAC [facility] Administration Empagliflozin 10 mg 03/01/24 10:00 03/01/24 08:51 Empagliflozin 10 Mg Tablet PO 10 mg DAILY [facility] Administration Escitalopram Oxalate 10 mg 03/01/24 10:00 03/01/24 08:54 Escitalopram Oxalate 10 Mg Tablet PO 10 mg DAILY [facility] Administration Metformin HCl 500 mg 03/07/24 08:00 Metformin (Xr) 500 Mg [facility] Metoprolol Succinate 12.5 mg 03/01/24 10:00 03/01/24 08:52 Metoprolol(Xl)Succ 25 Mg Tablet PO 12.5 mg DAILY [facility] Administration Protocol Multivitamins 1 tablet 03/01/24 08:00 03/01/24 08:49 Multivitamins,Therapeutic Tablet PO 1 tablet [facility] Administration Nutritional Formula (Lactose Free) 120 ml 03/01/24 12:45 03/01/24 13:39 Glucerna Shake 120 Ml Liquid PO Not Given [facility] Pantoprazole Sodium 40 mg 02/29/24 22:00 03/01/24 08:52 Pantoprazole Sodium 40 Mg Tablet PO 40 mg BID [place] Administration Polyethylene Glycol 17 gm 03/01/24 10:00 03/01/24 08:48 Polyethylene Glycol 3350 17 Gm Packet PO 17 gm DAILY [place] Administration Potassium Chloride 20 meq 03/01/24 08:00 03/01/24 09:08 Potassium Chloride Oral Tablet 20 Meq PO 20 meq BIDCM [place] Administration Prochlorperazine Maleate 10 mg 03/01/24 13:07 [...] by Alonso Marte MD> CC: ~ Signed [facility] Work Phone: 1(716) 389-245904-09-2024 History and physical note Author Alonso Marte [facility] February 29, 2024 8:00pm Note Date/Time February 29, 2024 7:43 pm [facility] Medical Records Department [address] [place] [address] History & Physical Exam 02/29/241933 MR#: [id number] Acct: [id number] Name: MANSI CARO Rep #:[id number] : 1955 69 From: Alonso Marte MD PCP: Dr. Adrienne Byers, DO Status:ADM IN Location: [facility] TCU08-1 HPI - General General Date of Admission: 02/29/24 Date of Service: 02/29/24 Chief Complaint: Here for rehabilitation. HPI Narrative 02/21/2024 MANSI CARO, is a 69 Female who presents to [facility] ED with abdominal pain. Abdominal pain, [...] Morphine, Zofran, Unasyn given. 02/21/2024 Admit to [facility]. IV antibiotics, consult GI for colitis. [...] strengthening, prior to discharge home with . [facility] Medical History (Updated 02/29/24 @ 19:[address] 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 * Abdominal cramping - Dicyclomine 20mg tidac. * HFrEF - Metoprolol succinate 15mg daily, Entresto 24/26mg 1/2 tablet bid, Jardiance 10mg daily, Aldactone 12.5mg mwf. * Nutrition - Ensure 120ml 4x/day, MVI daily. 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 * Diabetes Mellitus II - Metformin XR 500mg daily. * GERD - Pantoprazole 40mg bid. * Overactive bladder - Tolterodine 2mg daily. 02/29/241999 <Electronically signed by Alonso Marte MD> Cosigner Signature (if applicable): CC: Dr. Adrienne Byers, DO; Dr. Alonso Marte MD~ Signed [facility] Work Phone: 1(943) 511-147604-09-2024 Progress note Author Yoandy Thakkar [facility] February 29, 2024 10:26am Note Date/Time February 29, 2024 10:2 6am [facility] Medical Records Department [address] [address] Progress Note - Infect Disease 02/29/24 1025 MR#: [id number] Acct: [id number] Name: MANSI CARO Rep #:[id number] : 1955 69 From: Yoandy knight MD PCP: Dr. Adrienne Byers, Status:ADM IN Location: [place] [address]-1 Physical Exam Narrative Feeling better, abd pain [...] Cosigner Signature (if applicable): CC: ~ Signed [facility] Work Phone: 1(904) 385-972604-09-2024 Discharge summary Author Ganesh Kiran [facility] February 29, 2024 11:33am Note Date/Time February 29, 2024 7:35 am [facility] Medical Records Department [address] [place] [address] Transfer to [facility] Care MR#: [id number] Acct: [id number] Name: MANSI CARO Rep #:[id number] : 1955 69 From: Ganesh Mera PCP: Dr. Adrienne Byers, DO Status:ADM IN Certification of patient admission REQUIRED AT TIME OF ADMISSION. I CERTIFY THAT POST-HOSPITAL ECF SERVICES ARE REQUIRED TO BE GIVEN ON AN IN-PATIENT BASIS BECAUSE OF THE ABOVE NAMED PATIENT'S NEED FOR FDC CARE ON A CONTINUING BASIS FOR THE [...] to 6. * Patient was evaluated by community outreach worker 02/27: Patient passing flatus but no bowel [...] required. DVT prophylaxis: SCDs. Discussed with the welfare case worker. Patient's wanted to go to TCU. Allergies/Procedures [...] in before D/C Order can be placed): [facility] 02/29/24 1133 <Electronically signed by Ganesh Kiran MD> Cosigner Signature (if applicable): CC: Dr. Ben Johnson DO; Dr. Adrienne Byers DO; Dr. Heike Horta MD; Dr.Robert Ariane MD ~ [facility] Work Phone: 1(670) 842-816904-08-2024 Progress note Author Shan Lockett [facility] February 28, 2024 5:29pm Note Date/Time February 28, 2024 5:30 pm [facility] Medical Records Department [address] [place] [address] Progress Note - GI 02/28/24 1727 MR#: [id number] Acct: [id number] Name: MANSI CARO Rep #:[id number] : 1955 69 From: Shan Lockett DO PCP: Dr. Adrienne Halko, DO Status:ADM IN Location: [place] LE612-5 Subjective Subjective Patient's diarrhea has subsided with [...] (Auto) 44.0 L, Lymph % (Auto) 44.4 H,Ogle % (Auto) 6.9, Eos % (Auto) 4.3, [...] that plan. Charges/Coding Visit Charges Inpatient E&M: 12633 Subs Hosp L3 02/28/24 1729 <Electronically signed by Shan Friend DO> Cosigner Signature (if applicable): CC: ~ Signed [facility] Work Phone: 1(406) 674-983204-08-2024 Progress note Author Ganesh Kiran [facility] February 28, 2024 1:13pm Note Date/Time February 28, 2024 8:26 am [facility] Medical Records Department [address] [place] [address] Progress Note - Hospitalist 02/28/24822 MR#: [id number] Acct: [id number] Name: MANSI CARO Rep #:[id number] : 1955 69 From: Ganesh Mera PCP: Dr. Adrienne Byers, Status:ADM IN Location: [facility] DP341-3 Reason for Visit Reason for Visit: Diagnoses [...] (Auto) 44.0 L, Lymph % (Auto) 44.4 H,Ogle % (Auto) 6.9, Eos % (Auto) 4.3, [...] to 6. * Patient was evaluated by community outreach worker 02/27: Patient passing flatus but no bowel [...] required. DVT prophylaxis: SCDs. Discussed with the welfare case worker. Patient's wanted to go to TCU. Charges/Coding Visit Charges Inpatient E&M: 36699 Subs Hosp L2 02/28/24 1313 <Electronically signed by Ganesh Kiran MD> Cosigner Signature (if applicable): CC: ~ Signed [facility] Work Phone: 1(966) 290-824904-08-2024 Consult note Author Yoandy Thakkar [facility] February 28, 2024 1:02pm Note Date/Time February 28, 2024 1:02 pm [facility] Medical Records Department [address] [place] [address] Consultation - Infectious Dx 02/28/24 1258 MR#: [id number] Acct: [id number] Name: GORDOMANSI YANELIS Rep #:[id number] : 1955 69 From: Yoandy knight MD PCP: Dr. Adrienne Byers, DO Status:ADM IN Location: [place] OH077-5 Assessment & Plan Assessment/Plan (1) Colitis: PLAN: [...] performed and neg except as noted above. [facility] Medical History Anxiety and depression AV node dysfunction Cardiac resynchronization therapy defibrillator (DE[employer] REP-D) in place Cerebral palsy Congestive heart failure [...] (Auto) 44.0 L, Lymph % (Auto) 44.4 H,Ogle % (Auto) 6.9, Eos % (Auto) 4.3, [...] Heike Horta MD; Dr.Robert Ariane MD~ Signed [facility] Work Phone: 1(424) 551-216804-08-2024 Consult note Author Bill Victor [facility] February 28, 2024 2:46am Note Date/Time February 28, 2024 2:46 am [facility] Medical Records Department [address] [place] [address] Pharmacokinetic/Renal -Consult 02/28/24 0245 MR#: [id number] Acct: [id number] Name: MANSI CARO Rep #:[id number] : 1955 69 From: Bill Charlton od PCP: Dr. Adrienne Byers DO Status:ADM IN Location: [place] [address] Consult Antibiotic Management Pharmacy has been consulted [...] Signature (if applicable): Date CC: ~ Signed [facility] Work Phone: 1(138) 681-789604-07-2024 Progress note Author Shan Friend [facility] February 27, 2024 2:30pm Note Date/Time February 27, 2024 2:30 pm [facility] Medical Records Department [address] [place] [address] Progress Note - GI 02/27/24 1429 MR#: [id number] Acct: [id number] Name: MANSI CARO Rep #:[id number] : 1955 69 From: Shan Lockett DO PCP: Dr. Adrienne Byers DO Status:ADM IN Location: [place] [address]-1 Subjective Subjective Patient states that her abdominal [...] Neut % (Auto) 69.4, Lymph % (Auto) 22.4,Ogle % (Auto) 6.2, Eos % (Auto) 1.5, [...] medication regimen. Charges/Coding Visit Charges Inpatient E&M: 20096 Subs Hosp L3 02/27/24 1430 <Electronically signed by Shan Lockett DO> Cosigner Signature (if applicable): CC: ~ Signed [facility] Work Phone: 1(437) 132-442004-07-2024 Progress note Author Shan Lockett [facility] February 27, 2024 2:21pm Note Date/Time February 26, 2024 3:33 pm [facility] Medical Records Department [address] [place] [address] Progress Note - GI 02/26/24 1533 MR#: [id number] Acct: [id number] Name: MANSI CARO Rep #:[id number] : 1955 69 From: Shan Lockett DO PCP: Dr. Adrienne Byers, Status:ADM IN Location: [place] OE113-0 Subjective Subjective She underwent CT scan abdomen [...] Clarity Clear, Urine pH 5.0, Ur Specific [place] 1.020, Urine Protein 15 H, Urine Glucose [...] 77.6 H, Lymph % (Auto) 15.8 L, Ogle % (Auto) 5.7, Eos % (Auto) 0.2, [...] 13:20 EDT Reading Location ID and State: [address] [place] [address] , Service support , Physical Exam Const [...] 02/27/24 1421 <Electronically signed by Shan Friend > Cosigner Signature (if applicable): CC: ~ Signed [facility] Work Phone: 1(865) 774-711904-07-2024 Progress note Author Heike Horta [facility] February 27, 2024 11:22am Note Date/Time February 27, 2024 8:46 am [facility] Medical Records Department [address] [place] [address] Progress Note 02/27/24 0839 MR#: [id number] Acct: [id number] Name: MANSI CARO Rep #:[id number] : 1955 69 From: Heike Horta MD PCP: Dr. Adrienne Byers DO Status:ADM IN Location: [facility] PD706-9 Subjective Subjective Patient seen and examined. She [...] Neut % (Auto) 69.4, Lymph % (Auto) 22.4,Ogle % (Auto) 6.2, Eos % (Auto) 1.5, [...] awaiting placement Charges/Coding Visit Charges Inpatient E&M: 60907 Subs Hosp L2 02/27/24 1122 <Electronically signed by Heike Horta MD> Heike Horta MD Cosigner Signature (if applicable): CC: ~ Signed [facility] Work Phone: 1(564) 861-844604-06-2024 Progress note Author Heike Horta [facility] February 26, 2024 2:42pm Note Date/Time February 26, 2024 9:13 am [facility] Medical Records Department [address] [place] [address] Progress Note 02/26/24911 MR#: [id number] Acct: [id number] Name: MANSI CARO Rep #:[id number] : 1955 69 From: Heike Horta MD PCP: Dr. Adrienne Byers, DO Status:ADM IN Location: [place] VX979-3 Subjective Subjective Patient seen and examined. was [...] Clarity Clear, Urine pH 5.0, Ur Specific [place] 1.020, Urine Protein 15 H, Urine Glucose [...] 77.6 H, Lymph % (Auto) 15.8 L, Ogle % (Auto) 5.7, Eos % (Auto) 0.2, [...] awaiting placement Charges/Coding Visit Charges Inpatient E&M: 12030 [facility] Hosp 02/26/24 1442 <Electronically signed by Heike Horta MD> Heike Horta MD Cosigner Signature (if applicable): CC: ~ Signed [facility] Work Phone: 1(635) 446-256704-06-2024 Consult note Author Yoandy Marcial [facility] February 26, 2024 11:30am Note Date/Time February 26, 2024 11:2 6am [facility] Medical Records Department [address] [place] [address] Pharmacokinetic/Renal -Consult 02/26/24 1126 MR#: [id number] Acct: [id number] Name: MANSI CARO Rep #:[id number] : 1955 69 From: Yoandy Marcial PCP: Dr. Adrienne Byers, DO Status:ADM IN Y Location: [place] [address]-1 Consult Antibiotic Management Pharmacy has been consulted [...] signed by Yoandy Marcial> Date _ Yoandy Ortizroryaudi Signature (if applicable): Date CC: ~ Signed [facility] Work Phone: 1(247) 192-434804-05-2024 Progress note Author Shan Lockett [facility] February 25, 2024 5:51pm Note Date/Time February 25, 2024 5:51 pm [facility] Medical Records Department [address] [place] [address] Progress Note - GI 02/25/24 1749 MR#: [id number] Acct: [id number] Name: MANSI CARO Rep #:[id number] : 1955 69 From: Shan Lockett DO PCP: Dr. Adrienne Byers, Status:ADM IN Location: [place] [address] Subjective Subjective Patient's appetite is poor and [...] (Auto) 82.7 H, Lymph % (Auto) 10.3 L,Ogle % (Auto) 6.3, Eos % (Auto) 0.3, [...] poor appetite. Charges/Coding Visit Charges Inpatient E&M: 42314 Subs Hosp L3 02/25/24 5398 <Electronically signed by Shan Friend DO> Cosigner Signature (if applicable): CC: ~ Signed [facility] Work Phone: 1(625) 183-901904-05-2024 Progress note [facility] February 25, 2024 4:51pm Note Date/Time February 25, 2024 10:4 1am [facility] Medical Records Department [address] [place] [address] Progress Note 02/25/24 1040 MR#: [id number] Acct: [id number] Name: MANSI CARO Rep #:[id number] : 1955 69 From: Heike Horta MD PCP: Dr. Adrienne Byers, Status:ADM IN Location: [place] KI883-4 Subjective Subjective Patient seen and examined. was [...] (Auto) 82.7 H, Lymph % (Auto) 10.3 L,Ogle % (Auto) 6.3, Eos % (Auto) 0.3, [...] awaiting placement Charges/Coding Visit Charges Inpatient E&M: [address] [place] [address] 02/25/24 1525 <Electronically signed by Heike Horta [...] Signature (if applicable): Date cc: ~* Signed [facility] Work Phone: 1(327) 165-452204-04-2024 Progress note Author Shan Friend [facility] February 24, 2024 5:08pm Note Date/Time February 24, 2024 5:07 pm [facility] Medical Records Department [facility] [place] [address] Progress Note - GI 02/24/24 1705 MR#: [id number] Acct: [id number] Name: MANSI CARO Rep #:[id number] : 1955 69 From: Shan Friend DO PCP: Dr. Adrienne Byers, DO Status:ADM IN Location: [place] BX405-1 Subjective Subjective Patient had 1 bowel movement. [...] Neut % (Auto) 54.1, Lymph % (Auto) 37.2,Ogle % (Auto) 6.1, Eos % (Auto) 2.2, [...] add MiraLAX on a daily basis. 02/24/24 170 <Electronically signed by Shan Lockett DO> Cosigner Signature (if applicable): CC: ~ Signed ADDENDUM by Shan Lockett DO on 02/24/24 at 1708 Multi Select Codes Visit Charges Visit Charges: 13123 Subs Hosp L3 02/24/241707<Electronically signed by Shan Lockett DO> Cosigner Signature (if applicable): cc: ~* Signed [facility] Work Phone: 1(708) 369-991504-04-2024 Progress note Author Heike Horta [facility] February 24, 2024 3:42pm Note Date/Time February 24, 2024 9:35 am [facility] Medical Records Department [address] [place] [address] Progress Note 02/24/24 0932 MR#: [id number] Acct: [id number] Name: MANSI CARO Rep #:[id number] : 1955 69 From: Heike Horta MD PCP: Dr. Adrienne Byers, DO Status:ADM IN Location: [place] LL706-9 Subjective Subjective Patient seen and examined. She [...] Neut % (Auto) 54.1, Lymph % (Auto) 37.2,Ogle % (Auto) 6.1, Eos % (Auto) 2.2, [...] awaiting placement Charges/Coding Visit Charges Inpatient E&M: 28989 Subs Hosp L2 02/24/24 1542 <Electronically signed by Heike Horta MD> Heike Horta MD Cosigner Signature (if applicable): CC: ~ Signed [facility] Work Phone: 1(929) 966-931304-03-2024 Consult note Author Shan Lockett [facility] February 23, 2024 5:03pm Note Date/Time February 21, 2024 5:48 pm [facility] Medical Records Department [address] [place] [address] Consultation - GI 02/21/24 1748 MR#: [id number] Acct: [id number] Name: MANSI CARO Rep #:[id number] : 1955 69 From: Shan Lockett DO PCP: Dr. Adrienne Byers, DO Status:ADM IN Location: [place] [address] HPI Consult Data Date of Consult: 02/21/24 [...] also progressed to worsening lower GI bleeding. [facility] Medical History Anxiety and depression AV node dysfunction Cardiac resynchronization therapy defibrillator (DE[employer] SAL[employer] REP-D) in place Cerebral palsy Congestive heart failure [...] (Auto) 88.4 H, Lymph % (Auto) 5.3L, Ogle % (Auto) 5.5, Eos % (Auto) 0.0, [...] Clarity Clear, Urine pH 5.0, Ur Specific [place] 1.015, Urine Protein 15 H, Urine Glucose [...] reflux disease. Charges/Coding Visit Charges Inpatient E&M: 28333 SNF Init L2 02/23/24 1703 <Electronically signed by Shan Lockett DO> Cosigner Signature (if applicable): CC: Dr. Ben Johnson, ; Dr. Adrienne Byers DO~ Signed [facility] Work Phone: 1(132) 611-125204-03-2024 Progress note Author Shan Lockett [facility] February 23, 2024 4:56pm Note Date/Time February 23, 2024 4:56 pm [facility] Medical Records Department [address] [place] [address] Progress Note - GI 02/23/24 1655 MR#: [id number] Acct: [id number] Name: MANSI CARO Rep #:[id number] : 1955 69 From: Shan Lockett DO PCP: Dr. Adrienne Byers DO Status:ADM IN Location: [place] WP749-4 Subjective Subjective She underwent colonoscopy yesterday for lower GI bleeding. Had a long talk withher after procedure and explained to him the diagnosis and treatment recommendations. Objective Data Objective Data Vital Signs: Vital Signs Temp Pulse Resp BP Pulse Ox O2 Del Method 98.4 F 65 18 126/56 H 99 Room Air 02/23/24 13:37 02/23/24 13:37 04/03/24 13:37 02/23/24 13:37 02/23/24 13:37 02/23/24 13:37 [...] Neut % (Auto) 58.7, Lymph % (Auto) 34.0,Ogle % (Auto) 5.7, Eos % (Auto) 1.2, [...] bowel regimen. Charges/Coding Visit Charges Inpatient E&M: 15530 Subs Hosp L3 02/23/24 1656 <Electronically signed by Shan Friend DO> Cosigner Signature (if applicable): CC: ~ Signed [facility] Work Phone: 1(143) 214-752804-03-2024 Progress note Author [facility] February 23, 2024 3:33pm Note Date/Time February 23, 2024 10:0 1am [facility] Medical Records Department [address] [place] [address] Progress Note 02/23/24 0959 MR#: [id number] Acct: [id number] Name: MANSI CARO Rep #:[id number] : 1955 69 From: Heike Horta MD PCP: Dr. Adrienne Byers, Status:ADM IN Location: [place] [address] Subjective Subjective Patient seen and examined. She [...] Neut % (Auto) 58.7, Lymph % (Auto) 34.0,Ogle % (Auto) 5.7, Eos % (Auto) 1.2, [...] 24-48 hours. Charges/Coding Visit Charges Inpatient E&M: 28327 Subs Hosp L2 02/23/24 1533 <Electronically signed by Heike Horta MD> Heike Horta MD Cosigner Signature (if applicable): CC: ~ Signed [facility] Work Phone: 1(770) 545-538704-02-2024 Procedure [facility] 02-22-2024 Procedure [facility]04-02-2024 Progress note Author Heike [facility] February 22, 2024 2:23pm Note Date/Time February 22, 2024 2:15 pm [facility] Medical Records Department [address] [place] [address] Progress Note 02/22/24 1414 MR#: [id number] Acct: [id number] Name: MANSI CARO Rep #:[id number] : 1955 69 From: Heike Horta MD PCP: Dr. Adrienne Byers, DO Status:ADM IN Location: [place] [address]1 Subjective Subjective Patient seen and examined. Her [...] (Auto) 88.4 H, Lymph % (Auto) 5.3L, Ogle % (Auto) 5.5, Eos % (Auto) 0.0, [...] Clarity Clear, Urine pH 5.0, Ur Specific [place] 1.015, Urine Protein 15 H, Urine Glucose [...] 76.2 H, Lymph % (Auto) 16.1 L, Ogle % (Auto) 6.9, Eos % (Auto) 0.1, [...] 18:54 EDT Reading Location ID and State: [facility] / [place] Tel , Service support , Physical Exam [...] prophylaxis: SCDs. Charges/Coding Visit Charges Inpatient E&M: 19245 Subs Hosp L3 02/22/24 1423 <Electronically signed by Heike Horta MD> Heike Horta MD Cosigner Signature (if applicable): CC: ~ Signed [facility] Work Phone: 1(970) 306-285404-02-2024 Discharge summary Author Jose Jaime [facility] February 21, 2024 11:34pm Note Date/Time February 21, 2024 2:31 pm [facility] Medical Records Department [address] [place] [address] Emergency Department Summary 02/21/24 MR#: [id number] Acct: [id number] Name: MANSI CARO Rep #:[id number] : 1955 69 From: Jose Liu PCP: Dr. Adrienne Byers, DO Status:ADM IN Location: [place] [address]1 HPI HPI - GI History of Present [...] subjective chills but denies any fevers. PFSH [facility] Medical History Anxiety and depression AV node dysfunction Cardiac resynchronization therapy defibrillator ([employer] REP-D) in place Cerebral palsy Congestive heart failure [...] 88.4 H Lymph % (Auto) 5.3 L Ogle % (Auto) 5.5 Eos % (Auto) 0.0 [...] Color Urine Clarity Urine pH Ur Specific [place] Urine Protein Urine Glucose (UA) Urine Ketones Urine Occult Blood Urine Nitrite Urine Bilirubin Urine Urobilinogen Ur Leukocyte Esterase Urine RBC Urine WBC Ur Squamous Epith Cells Urine Bacteria Urine Mucus 02/21/24 17:02 WBC RBC Hgb Hct MCV MCH MCHC RDW Std Deviation RDW Coeff of Edita Plt Count MPV Immature Gran % (Auto) Neut % (Auto) Lymph % (Auto) Ogle % (Auto) Eos % (Auto) Baso % [...] Clarity Clear Urine pH 5.0 Ur Specific [place] 1.015 Urine Protein 15 H Urine Glucose [...] Provider] - Disposition Disposition: Acute Care Hospital [facility] What to do if you have Problems For any increased pain, shortness of breath, bleeding, nausea or vomiting, chestpain, or any unexpected problems, contact your Primary Care Provider. Call [facility] ([phone]) or report to the closest Emergency Room. Call 911 if necessary. 02/21/24 2334 <Electronically signed by Jose Jaime DO> Cosigner Signature (if applicable): CC: Dr. Adrienne Byers, ~ Signed [facility] Work Phone: 1([phone]) 375-640804-01-2024 History and physical note Author Ben [facility] February 21, 2024 9:35pm Note Date/Time February 21, 2024 9:35 pm [facility] Medical Records Department [address] [place] [address] H&P Exam - Hospitalist 02/21/242124 MR#: [id number] Acct: [id number] Name: MANSI CARO Rep #:[id number] : 1955 69 From: Ben Johnson DO PCP: Dr. Adrienne Byers DO Status:ADM IN Location: [facility] PC210-9 HPI - General General Date of Admission: 02/21/24 Date of Service: 02/21/24 Chief Complaint: Abdominal pain, bright red blood in stool HPI Narrative MANSI CARO, is a 69 F who presents to the emergency room at [facility] for evaluation of right red [...] neoplastic component. Patient will be admitted to [place] [address], she will be placed on IV antibiotics, shewill be seen by gastroenterology, she may need endoscopic procedures. Labs willbe monitored. [facility] Medical History Anxiety and depression AV node dysfunction Cardiac resynchronization therapy defibrillator (DE[employer] SAL[employer] REP-D) in place Cerebral palsy Congestive heart failure [...] (Auto) 88.4 H, Lymph % (Auto) 5.3L, Ogle % (Auto) 5.5, Eos % (Auto) 0.0, [...] Clarity Clear, Urine pH 5.0, Ur Specific [place] 1.015, Urine Protein 15 H, Urine Glucose [...] Colitis-etiology unclear, patient will be admitted to [facility] 3, she was placed on IV [...] able to exclude underlying solid neoplastic component. [facility] will need to arrange this. Total clinical time spent by myself addressing the patient's medical issues, reviewing all of her data, and collaborating with patient's care team: 75 minutes Charges/Coding Visit Charges Inpatient E&M: 17380 Init Hosp L3 02/21/24 8357 <Electronically signed by Ben Johnson DO> Cosigner Signature (if applicable): CC: Dr. Ben Johnson DO; Dr. Adrienne Byers DO~ Signed [facility] Work Phone: 1(538) 586-187902-05-2024 Note ORIGINAL EXAMINATION: BONE DENSITOMETRY 12/27/2023 2:34 [...] Sign Date: 12/27/2023 3:14:57 PM Ordering Provider: [facility]01-17-2024 Discharge summary Author Uday Orosco [facility] December 08, 2023 6:11pm Note Date/Time December 08, 2023 4 :37pm [facility] Medical Records Department [address] [place] [address] Emergency Department Summary 12/08/23 MR#: [id number] Acct: [id number] Name: MANSI CARO Rep #:[id number] : [...] She has not been at her baseline. 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 Call [facility] ([phone]) or report to the closest Emergency Room. Call 911 if necessary. 12/08/231810 <Electronically signed by Uday Orosco DO> Cosigner Signature (if applicable): CC: Dr. Adrienne Byers DO ~ Signed [facility] Work Phone: [phone]) 453-433611-29-2023 History of Present illness Narrative* Sherif Ramirez MD - 10/20/2023 3:30 PM EST [facility] - FOLLOW UP EVALUATION Jesus Manuel Freitas DO, DO [address] [facility] [address] Dear Jesus Manuel Freitas DO, DO: I [...] her . We had a visit using: [employer] I have communicated my name and active licensure. The patient's identity and physical location wereverified at the time of this visit. Either the patient or their legal help desk representative has been informed of the risks [...] Flowsheet Row Appointment from 10/20/2023 in Neurological [facility] Office Visit from 05/12/2023 in Rehab Medicine [...] Associate Staff Movement disorders [facility] Discharge summary Author Camacho Aguilar [facility] October 12, 2023 11:27am Note Date/Time October 12, 2023 11:25am [facility] Medical Records Department [address] [place] [address] Instructions for Home/Discharge Instructions 10/12/23 1124 MR#: [id number] Acct: [id number] Name: MANSI CARO Rep #:[id number] : [...] Order can be placed): Home, Self Care 10/12/237<Electronically signed by Camacho Aguilar MD>Camacho Aguilar MD CC: Dr. Jaci Greco MD; Dr. Tony Mayer MD; Dr. Adrienne Byers DO ~ Signed [facility] Work Phone: [phone]) 847-102311-20-2023 Progress note Author Camacho Aguilar [facility] October 11, 2023 10:04am Note Date/Time October 11, 2023 10:04am [facility] Medical Records Department [address] [place] [address] Progress Note - Hospitalist 10/11/23 1001 MR#: [id number] Acct: [id number] Name: MANSI CARO Rep #:[id number] : 1955 68 From: Camacho renner MD PCP: Dr. Adrienne Byers DO Status:ADM ANGELIA Location: [place] [id number]- 1 Subjective Subjective Doing well, no issues overnight. [...] 33.5 L, Lymph % (Auto) 54.9 H, Ogle % (Auto) 8.3, Eos % (Auto) 2.5, [...] DVT: Lovenox Charges/Coding Visit Charges Inpatient E&M: 93888 Subs Hosp L2 10/11/23 1004 <Electronically signed by Camacho Aguilar MD> Cosigner Signature (if applicable): CC: ~ Signed [facility] Work Phone: 1(832) 229-470111-19-2023 Progress note Author Tony Mayer [facility] October 10, 2023 10:13am Note Date/Time October 10, 2023 7:57am [facility] Medical Records Department [address] [place] [address] Progress Note - Hospitalist 10/10/23 0754 MR#: [id number] Acct: [id number] Name: MANSI CARO Rep #:[id number] : 1955 68 From: Tony Mayer MD PCP: Dr. Adrienne Byers, DO Status:ADM ANGELIA Location: [place] [address] Reason for Visit Reason for Visit: Diagnoses [...] 23:59 23:59 23:59 Intake Total 2019 / 1079 Balance 2019 / 1079 Lab / Micro Data 10/08/23 05:45 10/08/23 [...] 35 Minutes Charges/Coding Visit Charges Inpatient E&M: 54776 Subs Hosp L2 10/10/23 1013 <Electronically signed by Tony Mayer MD> Cosigner Signature (if applicable): CC: ~ Signed [facility] Work Phone: 1(108) 289-380911-18-2023 Progress note Author Tony Mayer [facility] October 09, 2023 9:43am Note Date/Time October 09, 2023 9:15am [facility] Medical Records Department [address] [facility] [place] [address] Progress Note - Hospitalist 10/09/23911 MR#: [id number] Acct: [id number] Name: MANSI CARO Rep #:[id number] : 1955 68 From: Tony Mayer MD PCP: Dr. Adrienne Byers, DO Status:ADM ANGELIA Location: [place] [address] Reason for Visit Reason for Visit: Diagnoses [...] 23:59 Intake Total 200 / 200 2019 2170 270 / 270 Balance 200 / [...] 35 Minutes Charges/Coding Visit Charges Inpatient E&M: 13945 Subs Hosp L2 10/09/23 0943 <Electronically signed by Tony Mayer MD> Cosigner Signature (if applicable): CC: ~ Signed [facility] Work Phone: 1(181) 625-965311-17-2023 Progress note Author Tony Mayer [facility] October 08, 2023 12:45pm Note Date/Time October 08, 2023 8:45am [facility] Medical Records Department [address] [place] [address] Progress Note - Hospitalist 10/08/23 0844 MR#: [id number] Acct: [id number] Name: MANSI CARO Rep #:[id number] : 1955 68 From: Tony Mayer MD PCP: Dr. Adrienne Byers, DO Status:ADM ANGELIA Location: [place] [address] Reason for Visit Reason for Visit: Diagnoses [...] (Auto) 41.7 L, Lymph % (Auto) 47.6 H,Ogle % (Auto) 9.0, Eos % (Auto) 0.9, [...] 41.9 L, Lymph % (Auto) 45.5 H, Ogle % (Auto) 9.3, Eos % (Auto) 2.5, [...] on 10/07/2023 13:09:24 (ET). Electronically Signed: Yousif Eelna MD at 13:10 EST , ADDENDUM: 10/07/23 [...] 50 Minutes Charges/Coding Visit Charges Inpatient E&M: 38610 [facility] Hosp 10/08/23 1245 <Electronically signed by Tony Mayer MD> Cosigner Signature (if applicable): CC: ~ Signed [facility] Work Phone: 1(297) 692-403911-16-2023 Discharge summary Author David Best [facility] October 07, 2023 4:57pm Note Date/Time October 07, 2023 1:03pm [facility] Medical Records Department [address] [place] [address] Emergency Department Summary 10/07/23 MR#: [id number] Acct: [id number] Name: MANSI CARO Rep #:[id number] : 1955 68 From: David Weller PCP: Dr. Adrienne Byers, DO Status:ADM ANGELIA Location: [place] [address] HPI History of Present Illness Chief Complaint: Stroke Alert Informant: patient, spouse/S.O. and SNF Narrative Narrative: Brought down from TCU initially seen in the [facility] as a stroke alert starting 15 minutes prior to arrival at 12:15 PM. Patient reports right-sided weakness. History of stroke in the past. She was recently seen this past Wednesday for stroke work- up with similar presentation. Initial evaluation in [facility] had right arm drift, right leg drift hitting the bed. Patient on aspirin and Plavix. She is at [facility] for [facility]. After patient being sent for [...] AV node dysfunction Cardiac resynchronization therapy defibrillator (DE[employer]ER SAL[employer] REP-D) in place Cerebral palsy Congestive heart failure [...] neurologist, hospitalist This note was generated with [employer] dictation software. It may contain incorrectwords, spelling, [...] 41.7 L Lymph % (Auto) 47.6 H Ogle % (Auto) 9.0 Eos % (Auto) 0.9 [...] (excluding procedures): 30-74 minutes, Discussing w/Patient &/or Family/Director Of Radio Services, Discussing w/Consultants, Arranging Admission or Transfer, Performing Direct Patient Care at Bedside and - (30 minutes) Discharge Plan Dx/Rx/DC Orders Clinical Impression: Transient ischemic attack, Ischemic cardiomyopathy, PFO (patent foramen ovale) Disposition Disposition: Acute Care Hospital [facility] Discharge Date/Time: 10/07/23 15:06 What to do if you have Problems For any increased pain, shortness of breath, bleeding, nausea or vomiting, chestpain, or any unexpected problems, contact your Primary Care Provider. Call [employer] [facility] ([phone]) or report to the closest Emergency Room. Call 911 if necessary. 10/07/23 1708 <Electronically signed by David Weller> Cosigner Signature (if applicable): CC: Dr. Adrienne Byers, DO ~ Signed [facility] Work Phone: [phone]) 835-976111-16-2023 History and physical note Author Jaci Greco [facility] October 07, 2023 2:38pm Note Date/Time October 07, 2023 1:59pm [facility] Medical Records Department [address] [place] [address] H&P Exam - Hospitalist 10/07/23 1355 MR#: [id number] Acct: [id number] Name: MANSI CARO Rep #:[id number] : [...] and Plavix who now re-presents to the [facility] ED on 10/07/23 with history of [...] AV node dysfunction Cardiac resynchronization therapy defibrillator (DE[employer]ER SAL[employer] REP-D) in place Cerebral palsy Coronary artery disease [...] (Auto) 41.7 L, Lymph % (Auto) 47.6 H,Ogle % (Auto) 9.0, Eos % (Auto) 0.9, [...] Back by Yousif Elena MD to David Le and understanding confirmed on 10/07/2023 13:09:24 (ET). [...] and Plavix who now re-presents to the [facility] ED on 10/07/23 with history of [...] 16 minutes. Charges/Coding Visit Charges Inpatient E&M: 13071 Init Hosp L3 Procedures Hospitalists Procedures: 50524 Advncd Care Plan 30 Min 10/07/23 1438 <Electronically signed by Jaci Greco MD> Cosigner Signature (if applicable): CC: Dr. Jaci Greco MD; Dr. Adrienne Byers, DO~ Signed [facility] Work Phone: 1([phone]) 850-797311-12-2023 Progress note Author Alonso Marte [facility] October 03, 2023 1:49pm Note Date/Time October 03, 2023 10:38am [facility] Medical Records Department [address] [place] [address] Progress Note - Pharmacy 10/03/23 1035 MR#: [id number] Acct: [id number] Name: MANSI CARO Rep #:[id number] : 1955 68 From: Talat Cameron PCP: Dr. Adrienne Byers, Status:ADM IN Location: [place] [address] Documented by User: Talat Cameron 10/03/23 11:16 [...] Tablet (1,000 Units) PO 50 mcg QHS [facility] Administration Citalopram Hydrobromide 20 mg 10/01/23 22:00 10/02/23 21:38 Citalopram 20 Mg Tablet PO 20 mg QHS [facility] Administration Clonazepam 1 mg 10/01/23 22:00 10/02/23 21:37 Clonazepam 1 Mg Tablet PO 1 mg QHS [facility] Administration Clopidogrel Bisulfate 75 mg 10/01/23 22:00 10/02/23 21:37 Clopidogrel [facility]ulfate 75 Mg [facility] Empagliflozin 10 mg 10/02/23 10:00 10/03/23 09:14 Empagliflozin 10 Mg Tablet PO 10 mg DAILY [facility] Administration Enoxaparin Sodium 40 mg 10/02/23 06:00 10/03/23 05:51 Enoxaparin 40 Mg/0.4 Ml Syringe SC 40 mg DAILY@0600 [facility] Administration Magnesium Citrate 300 ml 10/01/23 16:19 Magnesium Citrate 300 Ml PO DAILY PRN Constipation Metformin HCl 500 mg 10/02/23 08:00 10/03/23 09:13 Metformin Hcl 500 Mg Tablet PO [facility] Administration Metoprolol Succinate 12.5 mg 10/02/23 10:00 10/03/23 09:15 Metoprolol(Xl)Succ 25 Mg Tablet PO 12.5 mg DAILY [facility] Administration Protocol Multivitamins 1 tablet 10/02/23 08:00 10/03/23 09:13 Multivitamins,Therapeutic Tablet PO [facility] Administration Multivitamins 1 cap 10/02/23 08:00 10/03/23 09:13 Vitamin B Comp W-C Capsule PO 1 [facility] Administration Nutritional Formula (Lactose Free) 120 ml 10/01/23 17:00 10/03/23 05:52 Glucerna Shake 120 Ml Liquid PO 120 ml 4X/DAY [facility] Administration Pantoprazole Sodium 40 mg 10/01/23 22:00 10/03/23 09:13 Pantoprazole Sodium 40 Mg Tablet PO 40 mg BID [facility] Administration Sacubitril/Valsartan 0.5 each 10/01/23 22:00 10/03/23 09:14 Sacubitril/Valsartan 24/26 Mg Tablet PO 0.5 each BID [place] Administration Senna/Docusate Sodium 1 tablet 10/01/23 22:00 10/03/23 09:15 Senna/Docusate Sodium 1 Tablet PO 1 tablet BID [place] Administration Spironolactone 12.5 mg 10/04/23 10:00 Spironolactone 25 Mg Tablet PO MOWEFR [place] Tolterodine Tartrate 2 mg 10/01/23 15:17 Tolterodine [...] User: Dr. Alonso Marte MD 10/03/23 13:49 U RX Drug Regimen Review Provider Comments Provider responsibility Provider Comments to Recommendations by Pharmacy: Agree 10/03/23 1116 <Electronically signed by Talat Cameron> Talat Ortizigner Signature (if applicable): 10/03/23 1349 <Electronically signed by Alonso Marte MD> CC: ~ Signed [facility] Work Phone: 1(327) 463-587911-10-2023 History and physical note Author Alonso Estuardo [facility] October 01, 2023 4:18pm Note Date/Time October 01, 2023 4:07pm [facility] Medical Records Department [address] [place] [address] History & Physical Exam 10/01/23 1558 MR#: [id number] Acct: [id number] Name: MANSI CARO Rep #:[id number] : 1955 68 From: Alonso Marte MD PCP: Dr. Adrienne Byers, DO Status:ADM IN Location: [facility] TCU05-1 HPI - General General Date of Admission: 10/01/23 Date of Service: 10/01/23 Chief Complaint: Here for rehabilitation. HPI Narrative 09/28/2023 MANSI CARO, is a 68 Female who presents to [facility] Emergency Department with neurologic signs/symptoms. Presents [...] strengthening, prior to discharge home with . [facility] Medical History (Updated 10/01/23 @ 16:[address] 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 * Anxiety - Clonazepam 1mg qhs, stable chronic nursing home use, GDR not recommended. * Diabetes Mellitus [...] - Trazodone 50mg qhs prn, stable chronic nursing home use, GDR not recommended. * Leg cramp - Vitamin B complex 1 cap daily. 10/01/23 1618 <Electronically signed by Alonso Marte MD> Cosigner Signature (if applicable): CC: Dr. Adrienne Byers DO; Dr. Alonso Marte MD~ Signed [facility] Work Phone: 1([phone]) 986-302311-10-2023 Discharge summary Author Ben [facility]ored [facility] October 01, 2023 11:57am Note Date/Time October 01, 2023 11:57am [facility] Medical Records Department [address] [place] [address] Transfer to [facility] MR#: [id number] Acct: [id number] Name: MANSI CARO Rep #:[id number] : 1955 68 From: Ben Johnson DO PCP: Dr. Adrienne Byers DO Status:ADM IN Certification of patient admission REQUIRED AT TIME OF ADMISSION. I CERTIFY THAT [facility] SERVICES ARE REQUIRED TO BE GIVEN ON AN IN-PATIENT BASIS BECAUSE OF THE ABOVE NAMED PATIENT'S NEED FOR FDC CARE ON A CONTINUING BASIS FOR THE CONDITION(S) FOR WHICH HE/SHE WAS RECEIVING IN-PATIENT HOSPITAL SERVICES PRIOR TO HIS/HER TRANSFER TO [facility]. 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 Discharge Plan Admission Admit Date/Time: 09/28/23 [...] water retention) Patient Comments: TAKING NEEDED vitamin P64-zipjt acid 1 tab PO DAILY pantoprazole 40 [...] Corona DO; Dr. Adrienne Byers DO ~ [facility] Work Phone: 1(492) 257-396711-09-2023 Progress note Author Ben [facility]ored [facility] September 30, 2023 5:30pm Note Date/Time September 30, 2023 5 :30pm [facility] Medical Records Department [address] [place] [address] Progress Note - Hospitalist 09/30/23 1726 MR#: [id number] Acct: [id number] Name: MANSI CARO Rep #:[id number] : 1955 68 From: Ben Johnson DO PCP: Dr. Adrienne Byers DO Status:ADM IN Location: [place] [address] Reason for Visit Reason for Visit: Diagnoses [...] Protocol: Document 09/29/23 14:29 (Rec: 09/29/23 14:29 [id number]) Nutrition Malnutrition Evidence of Malnutrition Exists Yes [...] Referring Physician: Adrienne Byers Performed By: Estefany Ovalle, RINAT Brain MRI 09/30/23 09:00 IMPRESSION: No evidence [...] times a day will be given with modulR Total clinical time spent by myself addressing patient's medical issues, reviewing all of her data, and collaborating with patient's care team: 35-minutes Charges/Coding Visit Charges Inpatient E&M: 35079 Subs Hosp L2 09/30/23 1730 <Electronically signed by Ben Johnson DO> Cosigner Signature (if applicable): CC: ~ Signed [facility] Work Phone: 1(512) 766-688811-09-2023 Discharge summary Author Ben Johnson [facility] September 30, 2023 11:55am Note Date/Time September 30, 2023 1 1:52am [facility] Medical Records Department [address] [place] [address] Instructions for Home/Discharge Instructions 09/30/23 1151 MR#: [id number] Acct: [id number] Name: MANSI CARO Rep #:[id number] : 1955 68 From: Ben Johnson DO [...] water retention) Patient Comments: TAKING NEEDED vitamin M78-xvxsi acid 1 tab PO DAILY pantoprazole 40 [...] can be placed): Home, Self Care 09/30/23 3153<Electronically signed by Ben Johnson DO>Ben Johnson DO CC: Dr. Tony Corona DO; Dr. Adrienne Byers DO ~ Signed [facility] Work Phone: 1(491) 102-392511-08-2023 Progress note Author Ben Johnson [facility] September 29, 2023 5:39pm Note Date/Time September 29, 2023 5 :25pm [facility] Medical Records Department [address] [place] [address] Progress Note - Hospitalist 09/29/23 1717 MR#: [id number] Acct: [id number] Name: MANSI CARO Rep #:[id number] : 1955 68 From: Ben Johnson DO PCP: Dr. Adrienne Byers, DO Status:ADM IN Location: [place] [address] Reason for Visit Reason for Visit: Diagnoses [...] Protocol: Document 09/29/23 14:29 (Rec: 09/29/23 14:29 AG [id number]) Nutrition Malnutrition Evidence of Malnutrition Exists Yes [...] (Auto) 40.8 L, Lymph % (Auto) 49.7 H,Ogle % (Auto) 7.6, Eos % (Auto) 1.0, [...] Clarity Clear, Urine pH 8.0, Ur Specific Fairbanks 1.010, Urine Protein Negative, Urine Glucose (UA) [...] team: 35-minute Charges/Coding Visit Charges Inpatient E&M: 09134 Subs Hosp L2 09/29/23 6540 <Electronically signed by Ben Johnson DO> Cosigner Signature (if applicable): CC: ~ Signed [facility] Work Phone: 1(223) 237-286111-08-2023 History and physical note Author Tony Mejia [facility] September 29, 2023 7:10am Note Date/Time September 28, 2023 1 0:22pm [facility] Medical Records Department [facility] [place] [address] H&P Exam - Hospitalist 09/28/23 2210 MR#: [id number] Acct: [id number] Name: MANSI CARO Rep #:[id number] : 1955 68 From: Tony Williamson DO PCP: Dr. Adrienne Byers, DO Status:ADM IN Location: [place] [address] HPI - General General Date of Admission: [...] place, depression and osteoarthritis who presents to [facility] ER complaining of strokelike symptoms with fragmented sentences and confusion. Mrs. Caro is accompanied to the ER by her beloved who is helped augment the history and he reports that she was fine all day after eating breakfast and they went out to vote and then at approximately 4 PM she abruptly became confused and was not "acting right". She complained of not "feeling right" and immediately beganto talk in fragmented sentences [...] that was negative for Parkinson's disease at [place], where she normally receives her care. She denies fever, chills, nausea, vomiting, diarrhea or constipation. Stroke alert was called in the ER with patient outside the window for tPA and already improving clinically with suspicion for a possible CVA due to her PFO and [facility] for a stay that is expected to be greater than 48 hours. [facility] Medical History Anxiety Cardiac resynchronization therapy defibrillator (DEALER SAL[employer] REP-D) in place Congestive heart failure (CHF) Coronary [...] EDEMA 09/28/23 [History Last Taken Unknown] vitamin Y57-ecvmq acid 1 tab PO DAILY vitamin 09/28/23 [...] place andoriented to time Coordination / Balance: rqqnho-jb-lszs test normal and oolc-kt-erdo test normal Speech: speech normal Motor Exam: [...] (Auto) 40.8 L, Lymph % (Auto) 49.7 H,Ogle % (Auto) 7.6, Eos % (Auto) 1.0, [...] Clarity Clear, Urine pH 8.0, Ur Specific Fair[place] 1.010, Urine Protein Negative, Urine Glucose (UA) [...] 55 minutes. Charges/Coding Visit Charges Inpatient E&M: 75094 Init Hosp L2 09/29/23 0710 <Electronically signed by Tony Corona DO> Cosigner Signature (if applicable): CC: Dr. Tony Corona DO; Dr. Adrienne Byers DO~ Signed [facility] Work Phone: 1(355) 676-251911-08-2023 Discharge summary Author Uday Orosco [facility] September 28, 2023 10:10pm Note Date/Time September 28, 2023 8 :55pm [facility] Medical Records Department [address] [place] [address] Emergency Department Summary 09/28/23 MR#: [id number] Acct: [id number] Name: MANSI CARO Rep #:[id number] : 1955 68 From: Uday Orosco DO PCP: Dr. Adrienne Byers DO Status:ADM IN Location: [address] History of Present Illness Chief Complaint: [...] right lowerextremity. Patient is on Plavix. PFSH PFS Medical History Cardiac resynchronization therapy defibrillator (DEALER SALES REP-D) in place Diabetes mellitus Hyperlipidemia Hypertension Myocarditis [...] EDEMA 09/28/23 [History Last Taken Unknown] vitamin H62-vuosq acid PO 09/28/23 [History Last Taken Unknown] [...] 40.8 L Lymph % (Auto) 49.7 H Ogle % (Auto) 7.6 Eos % (Auto) 1.0 [...] Clarity Clear Urine pH 8.0 Ur Specific Fairbanks 1.010 Urine Protein Negative Urine Glucose (UA) [...] your Primary Care Provider. Call [facility] ([phone]) or report to the closest Emergency Room. Call 911 if necessary. 09/28/23 2210 <Electronically signed by Uday Orosco DO> Cosigner Signature (if applicable): CC: Dr. Adrienne Byers DO ~ Signed [facility] Work Phone: 1(550) 824-320311-07-2023 Discharge summary Author Uday Orosco [facility] September 28, 2023 10:10pm Note Date/Time September 28, 2023 8 :55pm [facility] Medical Records Department [address] [place] [address] Emergency Department Summary 09/28/23 MR#: [id number] Acct: [id number] Name: MANSI CARO Rep #:[id number] : 1955 68 From: Uday Orosco DO PCP: Dr. Adrienne Byers DO Status:ADM IN Location: [address] History of Present Illness Chief Complaint: [...] spastic right lowerextremity. Patient is on Plavix. [facility] Medical History Cardiac resynchronization therapy defibrillator (DEALER SALES REP-D) in place Diabetes mellitus Hyperlipidemia Hypertension Myocarditis [...] EDEMA 09/28/23 [History Last Taken Unknown] vitamin C69-uprnz acid PO 09/28/23 [History Last Taken Unknown] [...] 40.8 L Lymph % (Auto) 49.7 H Ogle % (Auto) 7.6 Eos % (Auto) 1.0 [...] Clarity Clear Urine pH 8.0 Ur Specific [place] 1.010 Urine Protein Negative Urine Glucose (UA) [...] your Primary Care Provider. Call [facility] ([phone]) or report to the closest Emergency Room. Call 911 if necessary. 09/28/230 <Electronically signed by Uday Orosco DO> Cosigner Signature (if applicable): CC: Dr. Adrienne Byers DO ~ Signed [facility] Work Phone: 1(346) 732-739810-31-2023 History of Present illness Narrative* Nirmal Carpio RT(R) - 09/21/2023 10:00 AM EDT RADIOLOGY [...] 1010 PATIENT DISCHARGED TO: Ambulatory patient, left [place] department area. A Diagnostic radioactive procedure has taken place, with no further precautions necessary other than routine body substance precautions. More information regarding radiation safety can be found usingthis link: [email or web address]%20Nuclear%20Medicine%20Procedures.[email or web address] SIGNATURE: RT [place]) PATIENT NAME: Mansi Caro DATE: September 21, 2023 TIME: 10:00 AM PAGER/CONTACT #: documented in this encounterSy[facility]10-[facility]-2023 Note ORIGINAL EXAMINATION: CT OF THE ABDOMEN [...] Sign Date: 09/07/2023 10:17:27 AM Ordering Provider: [facility]10-08-2023 Note . MICRO - Microbiology PROCEDURE: Urine [...] Locations *1: This test was performed at: [facility], [address] [place] [address], [address]- , [facility] ([place])08-04-2023 Hospital Discharge instructions Patient Education 08/04/2023 12:31:44 [...] animal will probably be confined with its canoe inspector for 10 days. If the animal does [...] bats may notbe noticed, especially by children. 9541-4957 [employer]. [address] [place] [address], [place] [address]. All rights reserved. This information is not intended as a substitute for professional medical care. Always follow yourhealthcare professional's instructions. 08/04/2023 12:31:41 9- AO ED Rabies Follow-up Vaccination ISAAK([facility] Rabies Follow-Up Vaccination Information Sheet SUMMARY After [...] your follow-up rabies vaccinations. OR Call the [facility] at to schedule your follow-up vaccination appointments. Hours: 8a-4:30p, Wednesday through Wednesday OR Call [facility] to schedule your follow-up vaccination appointments. Follow Up Care 08/04/2023 11:57:19 With:ADRIENNE BYERS Address: [address] [place] [phone] Business (1) When:2-4 days [facility] 09-13-2023 Emergency department Discharge summary Discharge Instructions Thank you for allowing [place] to assist you with your healthcare needs. The following is importantdischarge information regarding your hospital visit. Diagnosis from Today's Visit Bat exposure What to Do Next Instructions from Your Care Team No qualifying data available. Post Acute Orders No qualifying data available. You Need to Schedule the Following Appointments Follow Up with ADRIENNE BYERS When Within 2-4 days Where: [address] [place] [phone] Business (1) Allergies NKA Immunizations This Visit [...] animal will probably be confined with its canoe inspector for 10 days. If the animal does [...] bats may notbe noticed, especially by children. 2864-0643 [employer]. [address] [place] [address], [place] [address]. All rights reserved. This information is not intended as a substitute for professional medical care. Always follow yourhealthcare professional's instructions. [facility] Rabies Follow-Up Vaccination Information Sheet SUMMARY [...] your follow-up rabies vaccinations. OR Call the [facility] at to schedule your follow-up vaccination appointments. Hours: 8a-4:30p, Wednesday through Wednesday OR Call [facility] to schedule your follow-up vaccination appointments. Additional Information VACCINATE! IT SAVES LIVES! Members of the community who have not yet received the COVID-19 vaccine and would like to receive it can visit one of [facility] vaccine clinics. There are many vaccine clinic locations within the [facility]. For locations and available times, please visit www.[email or web address].[place].gov/. It is important to note that some COVID mobile vaccine clinics are held outdoors and may be canceled in rainy or stormy conditions. To learn more about pediatric vaccinations (ages 5-11), we invite you to visit the [facility] webpage. https://www.[facility].org/pages/0406-Arivf-Kukyjvrcfwq-Gcotfwvlqe-Mqjgi-Jay stions.htmlTo learn more about the COVID-19 vaccine, we invite you to visit the CDC website for a list of frequently asked questions. https://www.cdc.gov/coronavirus/2019-ncov/vaccines/faq.html [facility] Patient Portal Access Instructions: Stay connected with your healthcare team and access your personal medical information anytime with the [facility] Patient Portal. If you would like a full copy of your medical records please contact the [facility] Medical Records Department Wednesday through Wednesday between 8a.m. and 4:30p.m. Please follow the directions below to access the portal: 1.Access the email account you provided upon registration to the hospital.2.Look for an invitation email from [facility].3.Open the email and access the invitation link: Accept Invitation to [email or web address].Fill in the required tirado to create your [...] you will allow to register on the [place] [facility] Patient Portal for access to your information. You can also access the [email or web address] Patient Portal on the [employer]. Simply click on "Health Records" under "HealthDaTransactionTree" and then click on the Katie logo. [...] Call your local pharmacy or go to http://YogiPlay.Departing/8D4Gz6a to find one close to you.3.Make use of household items: Use cat litter or old coffee grounds to dispose medications if other options arenot available. Mix your drugs with these household products, seal them in an airtight container andthrow it into the garbage. Call [facility]: [phone] to be sure your drugs can be [...] been reviewed and explained to me and I,GORDO MANSI Garrido understand my current condition and have read and understand these discharge instructions. I have received a written copy of the plan/instructions. If I have questions, I am aware that I should contact my doctor. Patient/Autotransfusionist Signature: Date/Time: Relationship to Patient: Witness Name/Signature: Date/Time: [facility]08-10-2023 History of Present illness Narrative * Sherif Ramirez MD - 07/01/2023 9:03 AM EDT [facility] - FOLLOW UP EVALUATION Jesus Manuel Freitas DO [address] [place] [address] Dear Jesus Manuel Freitas DO: I had the pleasure of seeing Ms. Caro for follow-up today. As you know she is a 68 year old right-handed female with a history of left hand tremor since 2021. She is seen alone. We had a visit using: [employer] I have communicated my name and active licensure. The patient's identity and physical location wereverified at the time of this visit. Either the patient or their legal help desk representative has been informed of the risks and benefits of -- and alternatives to -- treatment through a remote evaluation andconsents to proceed with the evaluation remotely. I have communicated my name and active licensure. The patient's identity and physical location wereverified at the time of this visit. Either the patient or their legal help desk representative has been informed of the risks [...] Office Visit from 05/12/2023 in Rehab Medicine [facility] from 10/12/2022 in [facility] T Score 32.4 39.8 [...] Associate Staff Movement disorders [facility] documented in this encounterSycamore [facility] Center07-19-2023 Note* Exam Date Time Procedure Performing Provider Status 06/09/23 12:53 PM Echocardiogram, Adult ([facility]) Auth (Verified) [facility] 06-26-2023 Miscellaneous Notes* Telephone Encounter - Cheri Gill RN - 05/17/2023 3:27 PM EDT This was approved Called left message on identified VM of Beatrice that this was approved and to check with [facility] pharmacy Called [facility] pharmacy, talked with Orquidea and [...] medication on Wed., 05/19/23 documented in this encounterSycamore Medical Center06-26-2023 Miscellaneous Notes* Telephone Encounter - Cheri Gill RN - 05/17/2023 11:16 AM EDT Images from the original note were not included. * Telephone Encounter - Janee Argueta RN - 05/14/2023 10:48 AM EDT A PA has been submitted via [employer] Insurance Company Name:[employer] Phone Number: Patient ID number: [id number] Medication: Baclofen Dosage: 5mg Rios:[id number] PA Janee Argueta RN documented in this encounterSycamore Medical Center06-23-2023 Miscellaneous Notes* Telephone Encounter - Janee Argueta RN - 05/14/2023 11:17 AM EDT PA submitted via covermymeds. Janee Argueta RN * Telephone Encounter - Ghazala Gusman MD - 05/14/2023 8:56 AM EDT I'll forward to [facility] for PA * Telephone Encounter - Humaira Wetzel - 05/13/2023 4:43 PM EDT [facility] Pharmacy was called and the [...] and advise. Humaira Wetzel documented in this encounterSycamore Medical Center06-21-2023 History of Present illness Narrative* Ghazala Gusman [...] noted at rest but better with activity. DEALER SALES REP D placed on 05/12/22. Ongoing issues: Feeling [...] Pulse 73 Resp20 Ht 172.7 cm (5' 8") Wt 62.1 kg (137 lb) SpO2 97% [...] which included preparing to see the patient, chyh-bd-uprn patient care, completing clinical documentation, performing a medically appropriate examination, counseling and educating the patient/family/caregiver, and ordering medications, tests,or procedures. documented in this encounterSycamore Medical Center06-21-2023 Nurse Note* Janee Argueta RN - 05/12/2023 1:24 PM EDT Patient presents for spasticity on right side The following tests/records were reviewed:no Do you need any refills today from the doctor?yes Janee Argueta RN documented in this encounterSycamore Medical Center12-15-2022 Miscellaneous Notes* Telephone Encounter - Jelly Gomez [...] wait until she returns. documented in this encounterSycamore Medical Center11-21-2022 History of Present illness Narrative* Sherif Ramirez MD - 10/12/2022 1:45 PM EST [facility] - FOLLOW UP EVALUATION Jesus Manuel Freitas, DO, DO [address] [facility] [address] Freitas, I had the pleasure of seeing Ms. Caro for follow-up today. As you know she is a 67 year old right-handed female with a history of left hand tremor since 2021. She is seen alone. We had a visit using: [employer] I received consent from the patient to [...] Flowsheet Row Appointment from 10/12/2022 in [facility] from 08/10/2022 in [facility] T Score 39.8 37.4 [...] and is willing to rechallenge [facility] RN Current Outpatient Medications Medication Sig carbidopa-levodopa [...] research? Not currently Level of service : 79990 (10-19 min). Time spent 15 min on the day of service, which included preparing to see the patient, xvgh-xy-xffc patient care, completing clinical documentation, obtaining and/or [...] Associate Staff Movement disorders [facility] documented in this encounterSycamore Medical Center09-29-2022 Hospital Discharge instructions Patient Education 08/19/2022 23:45:42 [...] infection spreads to the kidney. The phrases "bladder infection," "UTI," and "cystitis" are often used to describe the same [...] swelling in the outer vaginal area (labia) 4567-7422 [employer]. [address] [place] [address], [place] [address]. All rights reserved. This information is not [...] about: All medicines you take, including prescription, hbpa-tst-amveula, herbs, and supplements Any other symptoms you [...] Chest, arm, neck, back, or jaw pain 7591-4312 [employer]. [address] [place] [address]. All rights reserved. This information is not intended as a substitute for professional medical care. Always follow yourhealthcare professional's instructions. Follow Up Care 08/19/2022 14:59:40 With:LARY WHEAT DO Address: [address] [place] [phone] When:2-4 days [facility] 09-29-2022 Emergency department Discharge summary Discharge Instructions Thank you for allowing [facility] to assist you with your healthcare needs. The following is importantdischarge information regarding your hospital visit. Diagnosis from Today's Visit Generalized weakness Fatigue What to Do Next Instructions from Your Care Team No qualifying data available. Post Acute Orders No qualifying data available. You Need to Schedule the Following Appointments Follow Up with LARY WHEAT DO When Within 2-4 days Where: [address] [place] [phone] Allergies NKA Medications Please ask your primary [...] infection spreads to the kidney. The phrases "bladder infection," "UTI," and "cystitis" are often used to describe the same [...] swelling in the outer vaginal area (labia) 5032-4799 [employer]. [address] [place] [address]. All rights reserved. This information is not intended as a substitute for professional medical care. Always follow yourhealthcare professional's instructions. Dizziness (Uncertain Cause) Dizziness is a common symptom. It may be described as lightheadedness, spinning, or feeling like you are going to faint. Dizziness can have many causes. Be sure to tell the healthcare provider about: All medicines you take, including prescription, ubbk-sue-gvjcvua, herbs, and supplements Any other symptoms you [...] Chest, arm, neck, back, or jaw pain 5763-7512 [employer]. [address] [place] [address]. All rights reserved. This information is not intended as a substitute for professional medical care. Always follow yourhealthcare professional's instructions. Additional Information VACCINATE! IT SAVES LIVES! Members of the community who have not yet received the COVID-19 vaccine and would like to receive it can visit one of [facility] vaccine clinics. There are many vaccine clinic locations within the [facility]. For locations and available times, please visit www.[email or web address].org. It is important to note that some COVID mobile vaccine clinics are held outdoors and may be canceled in rainy orstormy conditions. To learn more about pediatric vaccinations (ages 5-11), we invite you to visit the [facility] webpage. https://www.[facility].org/pages/3353-Webcc-Grulxueiaox-Tvtoxlhmph-Furta-Bwy stions.htmlTo learn more about the COVID-19 vaccine, we invite you to visit the [employer] website for a list of frequently asked questions. https://Wit studio.Samba.me/assets/Cuxtxmgp-ixe-Cyfuireq/yxebd-Rpevayi-Jdpgoczzjw _Asked-Questions.pdf [facility] Patient Portal Access Instructions: Stay connected with your healthcare team and access your personal medical information anytime with the [facility] [facility] Patient Portal. If you would like a full copy of your medical records please contact the [facility] Medical Records Department Wednesday through Wednesday between 8a.m. and 4:30p.m. Please follow the directions below to access the portal: 1.Access the email account you provided upon registration to the [facility].2.Look for an invitation email from [facility].3.Open the email and access the invitation link: Accept Invitation to [facility]4.Fill in the required tirado to create your account. Sign into [email or web address] with your username and password that you [...] you will allow to register on the [place] [facility] Patient Portal for access to your information. You can also access the [place] [facility] Patient Portal on the [employer]. Simply click on "Health Records" under "HealthDaTransactionTree" and then click on the Katie logo. [...] Call your local pharmacy or go to http://bit.Departing/1Z1Rh2k to find one close to you.3.Make use of household items: Use cat litter or old coffee grounds to dispose medications if other options arenot available. Mix your drugs with these household products, seal them in an airtight container andthrow it into the garbage. Call [facility]: [phone] to be sure your drugs can be [...] aware that I should contact my doctor. Patient/Autotransfusionist Signature: Date/Time: Relationship to Patient: Witness Name/Signature: Date/Time: [id number] Emergency department Discharge summary Discharge Instructions Thank you for allowing [facility] to assist you with your healthcare needs. The following is importantdischarge information regarding your hospital visit. Diagnosis from Today's Visit Generalized weakness Fatigue What to Do Next Instructions from Your Care Team No qualifying data available. Post Acute Orders No qualifying data available. You Need to Schedule the Following Appointments Follow Up with LARY WHEAT DO When Within 2-4 days Where: [address] [place] [phone] [phone] Allergies NKA Medications Please ask your primary [...] infection spreads to the kidney. The phrases "bladder infection," "UTI," and "cystitis" are often used to describe the same [...] swelling in the outer vaginal area (labia) 2746-4730 [employer]. [address] [place] [address], [place] [address]. All rights reserved. This information is not intended as a substitute for professional medical care. Always follow yourhealthcare professional's instructions. Dizziness (Uncertain Cause) Dizziness is a common symptom. It may be described as lightheadedness, spinning, or feeling like you are going to faint. Dizziness can have many causes. Be sure to tell the healthcare provider about: All medicines you take, including prescription, wafv-qix-samrviv, herbs, and supplements Any other symptoms you [...] Chest, arm, neck, back, or jaw pain [id number] [employer]. [address] [place] [address]. All rights reserved. This information is not intended as a substitute for professional medical care. Always follow yourhealthcare professional's instructions. Additional Information VACCINATE! IT SAVES LIVES! Members of the community who have not yet received the COVID-19 vaccine and would like to receive it can visit one of [facility] vaccine clinics. There are many vaccine clinic locations within the [facility]. For locations and available times, please visit [email or web address]. It is important to note that some COVID mobile vaccine clinics are held outdoors and may be canceled in rainy orstormy conditions. To learn more about pediatric vaccinations (ages 5-11), we invite you to visit the [facility] webpage. https://www.[facility].org/pages/8012-Srewz-Dknngvpuhcb-Papytcczud-Jlfvi-Uaw stions.htmlTo learn more about the COVID-19 vaccine, we invite you to visit the [employer] website for a list of frequently asked questions. https://[email or web address]/assets/Dzcrdvgf-xqp-Dvouyukr/ytvvu-Gpkvmkz-Winvbxpjhk _Asked-Questions.pdf [facility] Patient Portal Access Instructions: Stay connected with your healthcare team and access your personal medical information anytime with the [facility] Patient Portal. If you would like a full copy of your medical records please contact the [facility] Medical Records Department Wednesday through Wednesday between 8a.m. and 4:30p.m. Please follow the directions below to access the portal: 1.Access the email account you provided upon registration to the hospital.2.Look for an invitation email from [facility].3.Open the email and access the invitation link: Accept Invitation to [facility]4.Fill in the required tirado to create your account. Sign into [email or web address] with your username and password that you [...] you will allow to register on the [email or web address] Patient Portal for access to your information. You can also access the [facility] Patient Portal on the [employer] ricardo. Simply click on "Health Records" under "HealthData" and then click on the [facility] logo. HOW TO SAFELY DISPOSE OF PRESCRIPTION [...] Call your local pharmacy or go to http://bit.Departing/2H9Ss2x to find one close to you.3.Make use of household items: Use cat litter or old coffee grounds to dispose medications if other options arenot available. Mix your drugs with these household products, seal them in an airtight container andthrow it into the garbage. Call [facility]: [phone] to be sure your drugs can be [...] aware that I should contact my doctor. Patient/Autotransfusionist Signature: Date/Time: Relationship to Patient: Witness Name/Signature: Date/Time: [id number] HCoV 229E RNA ENRIQUE+non-probe Ql (Nph)Not Detected *NA* (08/19/22 4:45 PM)AH Auto Viro/Sero [id number] Note ORIGINAL EXAMINATION: ONE XRAY VIEW OF [...] Date: 08/19/2022 4:42:10 PM Ordering Provider: [facility]09-28-2022 Note ORIGINAL EXAMINATION: ONE XRAY VIEW OF [...] Sign Date: 08/19/2022 4:42:10 PM Ordering Provider: [facility]09-19-2022 History of Present illness Narrative* Sherif Ramirez MD - 08/10/2022 3:41 PM EDT [facility] - FOLLOW UP EVALUATION Jesus Manuel Freitas, , DO [address] [facility] [address] Freitas, I had the pleasure of seeing Ms. Caro for follow up today. she is a 67 year old right-handed female with a history of lef thand tremor since 2021. She is seen with her . We had a visit using: [employer] I received consent from the patient to perform the visit using this platform. Subjective HISTORY OF PRESENT ILLNESS: During her previous visit the following plan was made: Previous plan-06/23/2022 Visit: Tremor -patient will contact us via [employer] messaging should she wish to proceed with [...] Flowsheet Row Appointment from 08/10/2022 in [facility] from 10/30/2021in [facility] [...] Medication Schedule: Medications Level of service : 51181 (20-29 min). Time spent 20 min on the day of service, which included preparing to see the patient, mpty-mc-sneh patient care, completing clinical documentation, obtaining and/or [...] Associate Staff [facility] documented in this encounterSy[facility]08-[facility]22 Instructions* Patient Instructions* Carleen Denton MD - [...] scans like Clemencia scan. Discuss with your senior physician starting Sinemet and send us a message via Tomveyi Bidamon if you'd like to start the medication Return in about 3 months (around 09/23/2022) for Virtual Visit. If there are any concerns before your next visit, please call or you can send a message through [employer]. You can also now schedule and select appointments through [employer]. Carleen Denton MD documented in this encounterSycamore Medical Center08-02-2022 History of Present illness Narrative* Sherif Ramirez MD - 06/23/2022 3:23 PM EDT [facility] - NEW PATIENT EVALUATION Ghazala Gusman [address] [facility] [address] Jesus Manuel Freitas DO, DO [address] [facility] [address] Gusman: thank you for referring Ms. Dowler in our clinic today. As you know [...] EF and she eventually needed insertion of DEALER SALES REP-D in April. In addition to her new [...] keeping her appointments. She is independent in BADL's. Her grandmother may have had a tremor. [...] and is willing to rechallenge [facility] RN Current Outpatient Medications Medication Sig clopidogrel [...] Adult) Pulse 75 Ht 172.7 cm (5' 8") Wt 65.3 kg (144 lb) SpO2 97% [...] 3+ 2+ Patellar 3+ 2+ Coordination Right: Csjfzw-rz-zvnu normal. Rapid alternating movement abnormality: Mild right-sided slowing of finger and hand movements in the context of spasticity. Moderate slowing of left finger and hand movements. Mild slowing is seen in left toe tapping and leg agility.. Left: Zpusnr-xi-gyko normal. Rapid alternating movement abnormality: Gait Slow [...] the amplitude decrements starting after the 1st daqr-kwt-ndytn sequence. Arm Movements Right 2-Mild. a) 3 [...] to discuss the levodopa trial with her senior physician to see if there is any cardiac [...] Visit: Tremor -patient will contact us via [employer] messaging should she wish to proceed with Sinemet trial. Virtual follow-up in 3 months Interested in clinical research? Not currently Level of service : 95415 (60-74) min). Time spent 60 min on the day of service, which included preparing to see the patient, alxf-am-mpgu patient care, completing clinical documentation, obtaining and/or [...] Associate Staff Movement disorders [facility] documented in this encounterSycamore [facility] Center07-14-2022 History of Present illness Narrative* Ghazala Gusman [...] noted at rest but better with activity. DEALER SALES REP D placed on 05/12/22. No new N/T [...] which included preparing to see the patient, uorh-ka-viso patient care, completing clinical documentation, performing a medically appropriate examination, counseling and educating the patient/family/caregiver and ordering medications, tests, or procedures. documented in this encounterSycamore Medical Center07-01-2022 Hospital Discharge instructions Patient Education 05/22/2022 15:09:45 [...] or a fever with an unknown cause. Xmcr-tuj-cokqenv medicines will not shorten the duration of [...] your healthcare provider Feeling weak or dizzy 8921-1288 [employer]. [address] [place] [address]. All rights reserved. This information is not [...] where infectious diseases are common. Many people clam picker a cold or other virus while [...] you were there Where you stayed (hotel, orutsararmiut house, tent) What you ate and drank If you were bitten by insects or other bugs If you swam in freshwater If you had sex or got a tattoo or piercing while you were there Check the [facility] to get more information about specific infectious diseases in the areas you have traveled. 2101-8793 [employer]. [address] [place] [address]. All rights reserved. This information is not intended as a substitute for professional medical care. Always follow [facility] hospital[facility] professional's instructions. 05/22/2022 15:07:47 Weakness (Uncertain [...] red color) Loss of consciousness Severe headache 8947-1405 [employer]. [address] [place] [address], [place] [address]. All rights reserved. This information is not intended as a substitute for professional medical care. Always follow yourhealthcare professional's instructions. Follow Up Care 05/22/2022 12:44:39 With:LARY WHEAT DO Address: [address] [place] [phone] When:2-4 days Comments:Schedule appointment for close follow-up.Drink plenty of fluids and rest.Use Tylenol or Advil for fever as needed.Continue current medications.Return to the ED if symptoms worsen. [facility] 07-01-2022 Emergency department Discharge summary Discharge Instructions Thank you for allowing [facility] to assist you with your healthcare needs. [...] to the ED if symptoms worsen. Where: [address] [place] [phone] Allergies NKA Medications Please ask your primary [...] or a fever with an unknown cause. Ylos-tyg-gzkxzri medicines will not shorten the duration of [...] your healthcare provider Feeling weak or dizzy 6954-0699 [employer]. [address] [place] [address]. All rights reserved. This information is not [...] where infectious diseases are common. Many people clam picker a cold or other virus while [...] you were there Where you stayed (hotel, orutsararmiut house, tent) What you ate and drank If you were bitten by insects or other bugs If you swam in freshwater If you had sex or got a tattoo or piercing while you were there Check the [facility] to get more information about specific infectious diseases in the areas you have traveled. 2742-5486 [employer]. [address] [place] [address]. All rights reserved. This information is not [...] red color) Loss of consciousness Severe headache 9323-6592 [employer]. [address] [place] [address]. All rights reserved. This information is not intended as a substitute for professional medical care. Always follow yourhealthcare professional's instructions. Additional Information VACCINATE! IT SAVES LIVES! Members of the community who have not yet received the COVID-19 vaccine and would like to receive it can visit one of [facility] vaccine clinics. There are many vaccine clinic locations within the [facility]. For locations and available times, please visit [email or web address]. It is important to note that some COVID mobile vaccine clinics are held outdoors and may be canceled in rainy orstormy conditions. To learn more about pediatric vaccinations (ages 5-11), we invite you to visit the [facility] webpage. https://www.[facility].org/pages/4861-Ciwcc-Jksgultbayg-Kxwlrsnbzb-Gaiun-Oaz stions.htmlTo learn more about the COVID-19 vaccine, we invite you to visit the [facility] website for a list of frequently asked questions. [email or web address]://[email or web address]/assets/Ujkiiaup-zmr-[email or web address]/pvkzn-Okbjkma-Ryymdrwgdu _Asked-Questions.pdf [facility] Patient Portal Access Instructions: Stay connected with your healthcare team and access your personal medical information anytime with the [email or web address] Patient Portal. If you would like a full copy of your medical records please contact the [facility] Medical Records Department Wednesday through Wednesday between 8a.m. and 4:30p.m. Please follow the directions below to access the portal: 1.Access the email account you provided upon registration to the hospital.2.Look for an invitation email from [facility].3.Open the email and access the invitation link: Accept Invitation to [email or web address]4.Fill in the required tirado to create your account. Sign into [email or web address] with your username and password that you [...] you will allow to register on the [email or web address] Patient Portal for access to your information. You can also access the [email or web address] Patient Portal on the [employer]. Simply click on "Health Records" under "HealthData" and then click on the [employer] logo. HOW TO SAFELY DISPOSE OF PRESCRIPTION [...] Call your local pharmacy or go to http://YogiPlay.Departing/3M6Ww2z to find one close to you.3.Make use of household items: Use cat litter or old coffee grounds to dispose medications if other options arenot available. Mix your drugs with these household products, seal them in an airtight container andthrow it into the garbage. Call [facility]: [phone] to be sure your drugs can be [...] been reviewed and explained to me and I,GORDO MANSI Hema understand my current condition and have read and understand these discharge instructions. I have received a written copy of the plan/instructions. If I have questions, I am aware that I should contact my doctor. Patient/Autotransfusionist Signature: Date/Time: Relationship to Patient: Witness Name/Signature: Date/Time: [facility] [id number] Emergency department Discharge summary Discharge Instructions Thank [...] to the ED if symptoms worsen. Where: [address] [place] [address] [place] [phone] Allergies NKA Medications Please ask your primary [...] or a fever with an unknown cause. Rttg-gkb-huutxdz medicines will not shorten the duration of [...] your healthcare provider Feeling weak or dizzy 1557-8395 [employer]. [address] [place] [address]. All rights reserved. This information is not [...] where infectious diseases are common. Many people clam picker a cold or other virus while [...] you were there Where you stayed (hotel, orutsararmiut house, tent) What you ate and drank If you were bitten by insects or other bugs If you swam in freshwater If you had sex or got a tattoo or piercing while you were there Check the [facility] to get more information about specific infectious diseases in the areas you have traveled. 6069-6059 [employer]. [address] [place] [address]. All rights reserved. This information is not [...] red color) Loss of consciousness Severe headache 4478-2329 [employer]. [address] [place], [place] [address]. All rights reserved. This information is not intended as a substitute for professional medical care. Always follow yourhealthcare professional's instructions. Additional Information VACCINATE! IT SAVES LIVES! Members of the community who have not yet received the COVID-19 vaccine and would like to receive it can visit one of [facility] vaccine clinics. There are many vaccine clinic locations within the [facility]. For locations and available times, please visit [email or web address]. It is important to note that some COVID mobile vaccine clinics are held outdoors and may be canceled in rainy orstormy conditions. To learn more about pediatric vaccinations (ages 5-11), we invite you to visit the [facility] webpage. https://www.[facility].org/pages/8126-Xuwdy-Flranpckzhz-Xlhpkayhtw-Ckahn-Yrr stions.htmlTo learn more about the COVID-19 vaccine, we invite you to visit the [facility] website for a list of frequently asked questions. [email or web address]://[email or web address]/Zbgkqhxm-gfc-[email or web address]/wngpk-Blenvgo-Einpafpazk _Asked-Questions.pdf [facility] Patient Portal Access Instructions: Stay connected with your healthcare team and access your personal medical information anytime with the [email or web address] Patient Portal. If you would like a full copy of your medical records please contact the [facility] Medical Records Department Wednesday through Wednesday between 8a.m. and 4:30p.m. Please follow the directions below to access the portal: 1.Access the email account you provided upon registration to the hospital.2.Look for an invitation email from [facility].3.Open the email and access the invitation link: Accept Invitation to [email or web address]4.Fill in the required tirado to create your account. Sign into [email or web address] with your username and password that you [...] you will allow to register on the [email or web address] Patient Portal for access to your information. You can also access the [email or web address] Patient Portal on the [employer]. Simply click on "Health Records" under "HealthData" and then click on the [employer] logo. HOW TO SAFELY DISPOSE OF PRESCRIPTION [...] Call your local pharmacy or go to http://YogiPlay.Departing/9G6Kj8i to find one close to you.3.Make use of household items: Use cat litter or old coffee grounds to dispose medications if other options arenot available. Mix your drugs with these household products, seal them in an airtight container andthrow it into the garbage. Call [facility]: [phone] to be sure your drugs can be [...] aware that I should contact my doctor. Patient/Autotransfusionist Signature: Date/Time: Relationship to Patient: Witness Name/Signature: Date/Time: [facility] [id number] Emergency department Discharge summary Discharge Instructions Thank you for allowing [facility] to assist you with your healthcare needs. [...] to the ED if symptoms worsen. Where: [address] [place] [address] [place] [phone] Allergies NKA Medications Please ask your primary [...] or a fever with an unknown cause. Uqjs-pjv-aphwgmr medicines will not shorten the duration of [...] your healthcare provider Feeling weak or dizzy 6936-8472 [employer]. [address] [place] [address]. All rights reserved. This information is not [...] where infectious diseases are common. Many people clam picker a cold or other virus while [...] you were there Where you stayed (hotel, orutsararmiut house, tent) What you ate and drank If you were bitten by insects or other bugs If you swam in freshwater If you had sex or got a tattoo or piercing while you were there Check the [facility] to get more information about specific infectious diseases in the areas you have traveled. 5615-3922 [employer]. [address] [place] [address]. All rights reserved. This information is not [...] red color) Loss of consciousness Severe headache 3796-6460 [employer]. [address] [place] [address]. All rights reserved. This information is not intended as a substitute for professional medical care. Always follow yourhealthcare professional's instructions. Additional Information VACCINATE! IT SAVES LIVES! Members of the community who have not yet received the COVID-19 vaccine and would like to receive it can visit one of [facility] vaccine clinics. There are many vaccine clinic locations within the [facility]. For locations and available times, please visit [email or web address]. It is important to note that some COVID mobile vaccine clinics are held outdoors and may be canceled in rainy orstormy conditions. To learn more about pediatric vaccinations (ages 5-11), we invite you to visit the [facility] webpage. https://www.[facility].org/pages/2852-Kfmpu-Wwlopikmabf-Yfndiopvhz-Zeoaa-Hfk stions.htmlTo learn more about the COVID-19 vaccine, we invite you to visit the [facility] website for a list of frequently asked questions. [email or web address]://[email or web address]/[email or web address]-yzp-Rzkjkpua/ihsuk-Myjphte-Vrnbdwahzh _Asked-Questions.pdf [email or web address] Patient Portal Access Instructions: Stay connected with your healthcare team and access your personal medical information anytime with the [email or web address] Patient Portal. If you would like a full copy of your medical records please contact the [facility] Medical Records Department Wednesday through Wednesday between 8a.m. and 4:30p.m. Please follow the directions below to access the portal: 1.Access the email account you provided upon [facility] the [facility].2.Look for an invitation email from [facility].3.Open the email and access the invitation link: Accept Invitation to [email or web address]4.Fill in the required tirado to create your account. Sign into [email or web address] with your username and password that you [...] you will allow to register on the [facility] Patient Portal for access to your information. You can also access the [email or web address] Patient Portal on the [employer]. Simply click on "Health Records" under "HealthData" and then click on the [employer] logo. HOW TO SAFELY DISPOSE OF PRESCRIPTION [...] Call your local pharmacy or go to http://YogiPlay.Departing/5S2Ja3c to find one close to you.3.Make use of household items: Use cat litter or old coffee grounds to dispose medications if other options arenot available. Mix your drugs with these household products, seal them in an airtight container andthrow it into the garbage. Call [facility]: [phone] to be sure your drugs can be [...] aware that I should contact my doctor. Patient/Autotransfusionist Signature: Date/Time: Relationship to Patient: Witness Name/Signature: Date/Time: [facility] [id number] HCoV 229E RNA ENRIQUE+non-probe Ql (Nph)Not Detected *NA* (05/22/22 2:10 PM) Auto Viro/Sero [id number] Note ORIGINAL EXAMINATION: ONE XRAY VIEW OF [...] Date: 05/22/2022 1:15:33 PM Ordering Provider: MARTHA [facility]07-01-2022 Note ORIGINAL EXAMINATION: ONE XRAY VIEW [...] Sign Date: 05/22/2022 1:15:33 PM Ordering Provider: [facility]06-10-2022 Miscellaneous Notes* Telephone Encounter - Humaira Wetzel - 05/01/2022 11:14 AM EDT Mr. Pena, of Ms. Caro was called and he scheduled an appointment on 06/04/[address] Gusman at the [facility] for f2f appointment. Aware the Rx is [...] 05/01/2022 8:21 AM EDT Patient [facility] visit [facility] on 10/30/2021; Last f2f on 07/10/2021. [...] and advise. Humaira Wetzel documented in this encounterSycamore [facility] Center06-05-2022 Hospital Discharge instructions Patient Education 04/25/2022 23:46:26 [...] action. To control pain, take prescription or tjtz-nts-tichjyq medicines as directed. Unless told not to, [...] Severe headache, neck pain, drowsiness, or confusion 7212-1471 [employer]. [address] [place] [address]. All rights reserved. This information is not intended as a substitute for professional medical care. Always follow yourhealthcare professional's instructions. Follow Up Care 04/25/2022 23:32:02 With:Go to emergency room if symptoms worsen Address:Unknown When:2-4 days With:LARY WHEAT DO Address: [address] [place] [phone] When:2-4 days [facility] 03-17-2022 Miscellaneous Notes* Telephone Encounter - Pina Euceda - 02/05/2022 8:10 AM EDT Patient Song Chavez calling in stating him and the patient have questions about the medication "Baclofen (Lioresal)" that was prescribed. Please advise [facility] Discharge instructions Patient Education 12/25/2021 14:06:01 Heart Failure, Diagnosis, Ydlh-sd-Zvlb Heart Failure, Diagnosis Heart failure means that [...] 08/17/2009 Document Revised: 01/26/2020 Document Reviewed: 01/26/2020 Pathful Patient Education 2020 Vaughn Burton. Follow Up Care 12/24/2021 01:51:28 With:JAC CHRISTENSEN MD Address: [address] [facility] [address] [facility] [place] [address]- [phone] When:12/30/2021 10:15:00 Comments:THIS APPOINTMENT WILL BE WITH REI ALFONSO CNP [facility] 02-02-2022 Evaluation + Plan noteExtracted from: Title:History [...] OV Appointment Date:2022 11:00:00 AM Scheduled Provider: Location:[facility] Appointment Type:CV OV Appointment Date:02/12/2022 11:00:00 AM Scheduled Provider:LARY WHEAT DO Location:[facility] Appointment Type:PC OV Future Scheduled Tests Laboratory* Complete Blood Count 12/09/21 * Complete Metabolic Panel 12/09/21 [facility] 01-14-2022 Hospital Discharge instructions Patient Education 12/05/2021 [...] Slowly return to your usual activities. Take hufh-asj-lyyduyc and prescription medicines only as told by [...] 08/03/2002 Document Revised: 04/10/2019 Document Reviewed: 04/10/2019 Pathful Patient Education 2020 Vaughn Burton. Follow Up Care 11/22/2021 03:48:42 With:LARY WHEAT DO Address: [address] [place] [address]- [phone] When:1-2 days Comments:PLEASE CALL THIS OFFICE TO SCHEDULE A HOSPITAL FOLLOW UP APPOINTMENT. With:HARISH GIFFORD APRN-FOUNDATION RELATIONS MANAGER Address: [address] [place] [address] [address] [place] [address]- [phone] When:12/12/2021 Comments:This is your heart failure appointment. An appointment with your senior physician will be made at this visit. With:Cardiac Rehab Address: [address] [place] [address]- When: Unknown Comments:The Cardiac Rehab department will call you in 4-5 weeks to schedule you for phase 2. We left you a brochure with information about cardiac rehab. If you have any questions please call [phone]. With:JAC CHRISTENSEN MD Address: [address] [place] [address] [address] [place] [address]- [phone] When:2022 11:00:00 [facility] 01-06-2022 HCoV 229E RNA ENRIQUE+non-probe Ql (Nph)Not Detected *NA* (11/27/21 12:42 PM)AH Auto Viro/Sero [id number] Evaluation + Plan noteExtracted from: Title:Critical care [...] 1 L IV hydration, Rocephin, levofloxacin at [facility]. We will start patient on broad-spectrum antibiotic [...] who reports that the patient went to [place] starting on 11/08 and began to develop [...] levofloxacin and ceftriaxone, which were continued from [facility] ED. Can de-escalate to levofloxacin Order brain natriuretic peptide Empiric dose of IV furosemide 40 mg Repeat Covid test negative We will follow up blood and respiratory culture data GI prophylaxis with famotidine DVT prophylaxis with Lovenox Full code 35 minutes of critical care time Future Appointments Appointment Date:02/12/2022 11:00:00 AM Scheduled Provider:LARY WHEAT DO Location:[facility] Appointment Type:PC OV Diagnostic Tests Pending * Blood Culture (bacterial) 11/22/21 * Blood Culture (bacterial) 11/22/21 [facility] 04-02-2015 History of Past illness Narrative* Problem Noted Date Resolved Date Personal history of colonic polyps 02/21/2015 02/21/2015 documented as of this encounter (statuses as of 03/16/2022) [facility] of [facility] illness Narrative* Problem Noted Date Resolved Date Personal history of colonic polyps 02/21/2015 02/21/2015 documented as of this encounter (statuses as of 05/01/2022) [facility] of [facility] illness Narrative* Problem Noted Date Resolved Date Personal history of colonic polyps 02/21/2015 02/21/2015 documented as of this encounter (statuses as of 06/04/2022) [address]2015 History of Past illness Narrative* Problem Noted Date Resolved Date Personal history of colonic polyps 02/21/2015 02/21/2015 documented as of this encounter (statuses as of 06/25/2022) [address]2015 History of Past illness Narrative* Problem Noted Date Resolved Date Personal history of colonic polyps 02/21/2015 02/21/2015 documented as of this encounter (statuses as of 07/02/2022) [address]2015 History of Past illness Narrative* Problem Noted Date Resolved Date Personal history of colonic polyps 02/21/2015 02/21/2015 documented as of this encounter (statuses as of 08/10/2022) [address]2015 History of Past illness Narrative* Problem Noted Date Resolved Date Personal history of colonic polyps 02/21/2015 02/21/2015 documented as of this encounter (statuses as of 10/12/2022) [address] History of Past illness Narrative* Problem Noted Date Resolved Date Personal history of colonic polyps 02/21/2015 02/21/2015 documented as of this encounter (statuses as of 11/05/2022) [address] History of Past illness Narrative* Problem Noted Date Resolved Date Personal history of colonic polyps 02/21/2015 02/21/2015 documented as of this encounter (statuses as of 05/14/2023) [address] History of Past illness Narrative* Problem Noted Date Resolved Date Personal history of colonic polyps 02/21/2015 02/21/2015 documented as of this encounter (statuses as of 05/18/2023) [address] History of Past illness Narrative* Problem Noted Date Diagnosed Date Resolved Date Personal history of colonic polyps 02/21/2015 02/21/2015 documented as of this encounter (statuses as of 07/01/2023) [address] History of Past illness Narrative* Problem Noted Date Diagnosed Date Resolved Date Personal history of colonic polyps 02/21/2015 02/21/2015 documented as of this encounter (statuses as of 07/21/2023) [address] History of Past illness Narrative* Problem Noted Date Diagnosed Date Resolved Date Personal history of colonic polyps 02/21/2015 02/21/2015 documented as of this encounter (statuses as of 09/22/2023) [facility] Narrative* Problem Noted Date Diagnosed Date Resolved Date Personal history of colonic polyps 02/21/2015 02/21/2015 documented as of this encounter (statuses as of 09/22/2023) [facility] of [facility] illness Narrative* Problem Noted Date Diagnosed Date Resolved Date Personal history of colonic polyps 02/21/2015 02/21/2015 documented as of this encounter (statuses as of 10/22/2023) [facility] Narrative* Problem Noted Date Diagnosed Date Resolved Date Personal history of colonic polyps 02/21/2015 02/21/2015 documented as of this encounter (statuses as of 10/23/2023) [facility] Author Talat Cameron [facility] October 01, 2023 2:08pm Note Date/Time October 01, 2023 2:08pm [facility] Medical Records Department [address] [place] [address] [place] [address] Counseling Note - Pharmacy 10/01/231407 MR#: [id number] Acct: [id number] Name: MANSI CARO Rep #:[id number] : 1955 68 From: Talat Cameron PCP: Dr. Adrienne Byers, DO Status:ADM IN Location: [place] [address] Pharmacy [place] Med Reconciliation Pharmacy Service has performed discharge medication reconciliation for this patient. The patient's discharge medication list was reviewed for discrepancies and discrepancies were resolved. 10/01/23 1408 <Electronically signed by Talat knight> Date _ Talat Gallo Signature (if applicable): Date CC: ~ Signed [facility] Work Phone: Consult note Author Carlotta Singletary [facility] October 12, 2023 11:48am Note Date/Time October 12, 2023 11:40am [facility] Medical Records Department [address] [place] [address] Counseling Note - Pharmacy 10/12/23 1139 MR#: [id number] Acct: [id number] Name: MANSI CARO Rep #:[id number] : 1955 68 From: Carlotta Singletary PCP: Dr. Adrienne Byers, DO Status:ADM ANGELIA Y Location: [place] [address] Pharmacy [place] Med Reconciliation Pharmacy Service has performed discharge [...] Signature (if applicable): Date CC: ~ Signed [facility] Work Phone: Consult note Author Talat Cameron [facility] February 29, 2024 11:45am Note Date/Time February 29, 2024 11:4 5am [facility] Medical Records Department [address] [facility] [place] [address] Counseling Note - Pharmacy 02/29/24 1145 MR#: [id number] Acct: [id number] Name: MANSI CARO Rep #:[id number] : 1955 69 From: Talat Cameron PCP: Dr. Adrienne Byers, DO Status:ADM IN Location: [address] Pharmacy [place] Med Reconciliation Pharmacy Service has performed discharge [...] Signature (if applicable): Date CC: ~ Signed [facility] Work Phone: Consult note Author Carlotta Singletary [facility] Note Date/Time June 11, 2025 3:38 pm [facility] Medical Records Department [address] [place] [address] Counseling Note - Pharmacy 06/11/25 1506 MR#: [id number] Acct: [id number] Name: MANSI CARO Rep #:[id number] : 1955 70 From: Carltota Singletary PCP: Marci Lopez DO Status:ADM I N Y Location: [facility] [id number] Pharmacy [facility] Counseling Pharmacy Service has performed discharge [...] Signature (if applicable): Date CC: ~ Signed [facility] Work Phone: Consult note Author Carlotta Singletary [facility] Note Date/Time July 04, 2025 11 :43am [facility] Medical Records Department [address] [place] [address] Counseling Note - Pharmacy 07/04/25 1006 MR#: [id number] Acct: [id number] Name: MANSI CARO Rep #:[id number] : 1955 70 From: Carlotta Singletary PCP: Marci Lopez DO Status:ADM I NO Y Location: MS3 [id number] Pharmacy [place] Med Reconciliation Pharmacy Service has performed discharge medication reconciliation for this patient. The patient's discharge medication list was reviewed for discrepancies and discrepancies were resolved. Medications at Discharge Home Medications clonazepam 1 [...] (Feosol) 325 mg PO QDAY Supplement 02/13/25 pantoprazole 40 mg tablet,delayed release 40 mg [...] 10 mg) PO DAILY #30 tabs 06/11/25 albuterol sulfate 90 mcg/actuation aerosol inhaler 1 puff inhalation Q6H PRN PRNshortness of breath or wheezing 07/01/25 07/04/25 1006 <Electronically signed by Carlotta Singletary> Date _ Carlotta Singletary Cosigner Signature (if applicable): Date CC: ~ Signed [facility] Work Phone: Discharge summary Author Romeo Padron [facility] Note Date/Time April 19, 2025 11:06 am [facility] Medical Records Department [address] [place] [address] Emergency Department Summary 04/19/25 MR#: [id number] Acct: [id number] Name: MANSI CARO Rep #:[id number] : 1955 70 From: Romeo Padron DO PCP: Marci Lopez DO Status:REG E R Location: ED ADDENDUM by Dr. Bossman Sanders DO on 04/19/25 at 1106 Patient care turned over to nh awaiting evaluation by family welfare social work professor for placement to longterm facility. Patient was evaluated by family welfare social work professor and it was recommended that patient be admitted for precertification and admission to longterm facility. Will discuss case with hospitalist to [...] infection she was brought in for evaluation [facility] Medical History Ischemic colitis History of [...] (patent foramen ovale) Cardiac resynchronization therapy defibrillator ([employer] REP-D) in place Myocarditis Hyperlipidemia Hypertension Home Medications [...] 0.125 mg tablet 0.125 mg PO TID DE N dyspepsia #90 03/05/25 Unknown Rx tabs [...] to go home and is agreeable to residential/rehab placement. As it is a weekday and morning hours the patient will be evaluated by physical therapy/Occupational Therapy in the ER and social work will be consulted as well. There is hopes that the patient will be able to be sent directly from the ER to a residential/rehab center. The patient and family were informed [...] 78.3 H Lymph % (Auto) 10.4 L Ogle % (Auto) 8.2 Eos % (Auto) 2.5 [...] Clarity Clear Urine pH 6.5 Ur Specific [place] 1.010 Urine Protein 15 H Urine Glucose (UA) 100 H Urine Ketones Negative Urine Occult Blood Negative Urine Nitrite Negative Urine Bilirubin Negative Urine Urobilinogen Normal Ur Leukocyte Esterase Negative Urine RBC 0 SEEN Urine WBC 0 SEEN Ur Squamous Epith Cells 0 SEEN Urine Bacteria 0 SEEN Urine Mucus 0 SEEN Management Discussion w/another healthcare provider: Hospitalist and community outreach worker/Case management Discharge Plan Triage Chief Complaint: [...] DO [Primary Care Provider] - Print Language: Puerto Rican What to do if you have Problems For any increased pain, shortness of breath, bleeding, nausea or vomiting, chestpain, or any unexpected problems, contact your Primary Care Provider. Call [facility] ([phone]) or report to the closest Emergency Room. Call 911 if necessary. 04/19/25 0633 <Electronically signed by Romeo Padron DO> Cosigner Signature (if applicable): CC: Marci Lopez DO ~ Signed [facility] Work Phone: Discharge summary Author Maximo Orosco [facility] Note Date/Time April 20, 2025 2:54p m [facility] Medical Records Department [address] [facility] [place] [address] Transfer to [facility] MR#: [id number] Acct: [id number] Name: MANSI CARO Rep #:[id number] : 1955 70 From: Maximo levin DO PCP: Marci Lopez DO Status:ADM I NO Certification of patient admission REQUIRED AT TIME OF ADMISSION. I CERTIFY THAT POST-HOSPITAL ECF SERVICES ARE REQUIRED TO BE GIVEN ON AN IN-PATIENT BASIS BECAUSE OF THE ABOVE NAMED PATIENT'S NEED FOR FDC CARE ON A CONTINUING BASIS FOR THE CONDITION(S) FOR WHICH HE/SHE WAS RECEIVING IN-PATIENT HOSPITAL SERVICES PRIOR TO HIS/HER TRANSFER TO [facility]. 04/20/25 1454<Electronically signed by Maximo Orosco [...] is a 70-year-old female who presented to [facility] ED on 04/19/2025 with worsening weakness. [...] 90 2RF Referrals / Follow Up: Marci Lopez, [Primary Care Provider] - Disposition Disposition (needs filled in before D/C Order can be placed): [facility] 04/20/25 9404 <Electronically signed by Maximo Orosco DO> Cosigner Signature (if applicable): CC: Marci Lopez DO ~ [facility] Work Phone: Discharge summary Author Maximo Orosco [facility] Note Date/Time April 20, 2025 2:55p m [facility] Medical Records Department [address] [facility] [place] [address] Discharge Summary 04/20/25 1449 MR#: [id number] Acct: [id number] Name: MANSI CARO Rep #:[id number] : 1955 70 From: Maximo levin DO PCP: Marci Lopez DO Status:ADM I NO Location: [place] [address] Providers Date of Admission: 04/19/25 Date of [...] is a 70-year-old female who presented to [facility] ED on 04/19/2025 with worsening weakness. [...] in before D/C Order can be placed): [facility] Charges/Coding Visit Charges Inpatient E&M: 93076 Disch Hosp >30min 04/20/25 9145 <Electronically signed by Maximo Orosco DO> Cosigner Signature (if applicable): CC: Dr. Maximo Orosco DO; Marci Lopez DO~ Signed [facility] Work Phone: Discharge summary Author Camacho Aguilar [facility] Note Date/Time July 04, 2025 9: 47am [facility] Medical Records Department [address] [place] [address] Transfer to Extended Care MR#: [id number] Acct: [id number] Name: MANSI CARO Rep #:[id number] : 1955 70 From: Camacho renner MD PCP: Marci Lopez DO Status:ADM I NO Certification of patient admission REQUIRED AT TIME OF ADMISSION. I CERTIFY THAT POST-HOSPITAL ECF SERVICES ARE REQUIRED TO BE GIVEN ON AN IN-PATIENT BASIS BECAUSE OF THE ABOVE NAMED PATIENT'S NEED FOR FDC CARE ON A CONTINUING BASIS FOR THE CONDITION(S) FOR WHICH HE/SHE WAS RECEIVING IN-PATIENT HOSPITAL SERVICES PRIOR TO HIS/HER TRANSFER TO THE ECF. 07/04/25 0947<Electronically signed by Camacho Aguilar MD> Diet Diet Order/Speech Therapy: INPATIENT Hospital Diet / Speech Therapy Order(s) 07/01/25 21:12 Diet: Regular - General Food consistency:: Regular Liquid Consistency:: Regular/Thin Type of Dietary Supplement:: Ensure Plus High Protein Routine Orders/Code Status Routine Lab Work: CBC and BMP Code Status: Full Code DC O2, CPAP, BIPAP needs Home O2 Discharge instructions: No Therapies Physical Therapy: Eval and Treat Occupational Therapy: Eval and Treat Problem/Diagnosis (1) Failure to thrive: Status: Acute (2) Protein calorie malnutrition: Status: Acute Code(s): E46 - Unspecified protein-calorie malnutrition Plan 1. Adult failure to thrive with protein calorie malnutrition ? PT/OT ? Case management for discharge planning ? Appreciate nutrition's assistance ? Awaiting pre-CERT, delaying discharge due to awaiting insurance approval and facility acceptance 2. History of CVA involving the left MCA/CAD/essential HTN/HLD/chronic systolicCHF ? Continue with her home blood pressure medications ? Continue with her home Lasix ? Continue with her home Crestor ? 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 COPD ? Not in exacerbation ? Continue with inhalers 4. DM2 ? Continue with her home metformin ? Will monitor and make adjustments as necessary 5. Anxiety/depression ? Stable ? Continue with her home medications 6. GERD ? Stable ? 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 Rec appetite stimulant to help encourage increased po intake at meals May need to consider supplemental nutrition support if po intake fails to improve and/or wt loss continues if in accordance w/ pt/family wishes. Discharge Plan Admission Admit Date/Time: 07/01/25 19:22 Attending Provider: Camacho Aguilar Primary Care Provider: Marci Lopez Consulting Providers: Jose Royal Discharge Orders/Prescriptions Prescriptions: Continued furosemide 20 mg [...] mg iron) tablet 325 mg PO QDAY ondansetron 4 mg tablet,disintegrating 4 mg PO [...] PO DAILY 30 Days Qty: 30 0RF phenazopyridine 100 mg tablet 100 mg PO TID PRN PRN (Reason: pain) lisinopril 10 mg Tablet 5 mg PO DAILY Qty: 30 0RF Rx Instructions: Hold for SBP less than 130 mmHg albuterol sulfate 90 mcg/actuation HFA aerosol inhaler 1 puff inhalation Q6H PRN PRN (Reason: shortness of breath or wheezing) hyoscyamine sulfate 0.125 mg tablet 0.125 mg PO TID PRN (Reason: dyspepsia) Qty: 90 2RF Discontinued Linzess 145 mcg capsule 145 mcg PO QAM Qty: 60 2RF Patient Comments: stopped 05/30/25 oxycodone 5 mg Tablet 5 mg PO Q6H PRN PRN (Reason: Pain Score 6-10) 7 Days Qty: 28 0RF [place] XR 6 mg tablet extended release 24 hr 6 mg PO DAILY Patient Comments: stopped 06/02/25 Referrals / Follow Up: Marci Lopez DO [Primary Care Provider] - Disposition Disposition (needs filled in before D/C Order can be placed): [facility] Facility 07/04/25 0947 <Electronically signed by Camacho Aguilar MD> Cosigner Signature (if applicable): CC: Dr. Jose Royal DO; Marci Lopez DO ~ [facility] Work Phone: Evaluation + Plan note Future Appointments Appointment Date:10/08/2021 02:30:00 PM Scheduled Provider: Location:[facility] Appointment Type:MA Mammogram Screening Bilateral w/ Yoav Appointment Date:10/31/2021 02:00:00 PM Scheduled Provider:LARY WHEAT DO Location:[facility] Appointment Type:[facility] Future Scheduled Tests Radiology* MA Mammo Screening Bilateral w/ Yoav 10/08/21 [facility] Evaluation + Plan note Future Appointments Appointment Date:10/31/2021 02:00:00 PM Scheduled Provider:LARY WHEAT DO Location:[facility] Appointment Type:[facility] Evaluation + Plan note Future Appointments Appointment Date:02/12/2022 11:00:00 AM Scheduled Provider:LARY WHEAT DO Location:[facility] Appointment Type:PC OV [facility] Evaluation + Plan note Future Appointments Appointment Date:2022 11:00:00 AM Scheduled Provider: Location:[facility] Appointment Type:CV OV Appointment Date:02/12/2022 11:00:00 AM Scheduled Provider:LARY WHEAT DO Location:[facility] Appointment Type:PC OV [facility] Evaluation + Plan note Future Appointments Appointment Date:12/30/2021 10:15:00 AM Scheduled Provider:REI ALFONSO Location:[facility] Appointment Type:CV OV Appointment Date:2022 11:00:00 AM Scheduled Provider: Location:[facility] Appointment Type:CV OV Appointment Date:02/12/2022 11:00:00 AM Scheduled Provider:LARY WHEAT DO Location:[facility] Appointment Type:PC OV Future Scheduled Tests Laboratory* Complete Blood Count 12/09/21 * Complete Metabolic Panel 12/09/21 [facility] Evaluation + Plan note Future Appointments Appointment Date:2022 11:00:00 AM Scheduled Provider: Location:[facility] Appointment Type:CV OV Appointment Date:02/12/2022 11:00:00 AM Scheduled Provider:LARY WHEAT DO Location:[facility] Appointment Type:PC OV Appointment Date:02/17/2022 03:45:00 PM Scheduled Provider: Location:[facility] [place] Appointment Type:CV OV Appointment Date:03/30/2022 02:00:00 PM Scheduled Provider: Location:[facility] Appointment Type:CV Procedure - Echo (Adult) Future Scheduled Tests Laboratory* Complete Blood Count 12/09/21 * Complete Metabolic Panel 12/09/21 [facility] Evaluation + Plan note Future Appointments Appointment Date:02/12/2022 11:00:00 AM Scheduled Provider:ALRY WHEAT DO Location:[facility] Appointment Type:PC OV Appointment Date:02/17/2022 03:45:00 PM Scheduled Provider: Location:[facility] Appointment Type:CV OV Appointment Date:03/30/2022 02:00:00 PM Scheduled Provider: Location:[facility] Appointment Type:CV Procedure - Echo (Adult) [facility] Evaluation + Plan note Future Appointments Appointment Date:03/20/2022 08:45:00 AM Scheduled Provider: Location:[facility] Appointment Type:CV OV Appointment Date:03/30/2022 02:00:00 PM Scheduled Provider: Location:[facility] Appointment Type:CV Procedure - Echo (Adult) Appointment Date:05/15/2022 08:00:00 AM Scheduled Provider:LARY WHEAT DO Location:[facility] Appointment Type:PC OV Future Scheduled Tests Laboratory* Basic Metabolic Panel 03/10/22 * A1C Hemoglobin 05/15/ * Lipid Profile 03/10/22 * Vitamin D Level 05/15/ * Complete Metabolic Panel 05/15/22 * N-Terminal proBNP 03/10/22 [facility] Evaluation + Plan note Future Appointments Appointment Date:03/09/2022 03:45:00 PM Scheduled Provider: Location:[facility] [place] Appointment Type:CV OV Appointment Date:03/20/2022 08:45:00 AM Scheduled Provider: Location:[facility] Appointment Type:CV OV Appointment Date:03/30/2022 02:00:00 PM Scheduled Provider: Location:[facility] Appointment Type:CV Procedure - Echo (Adult) Appointment Date:05/15/2022 08:00:00 AM Scheduled Provider:LARY WHEAT DO Location:[facility] [place] Appointment Type:PC OV Future Scheduled Tests Laboratory* Basic Metabolic Panel 03/10/22 * A1C Hemoglobin 05/15/22 * Lipid Profile 03/10/22 * Vitamin D Level 05/15/22 * Complete Metabolic Panel 22 * N-Terminal proBNP 03/10/22 [facility] Evaluation + Plan note Future Appointments Appointment Date:03/09/2022 03:45:00 PM Scheduled Provider: Location:[facility] [place] Appointment Type:CV OV Appointment Date:03/20/2022 08:45:00 AM Scheduled Provider: Location:[facility] [place] Appointment Type:CV OV Appointment Date:03/30/2022 02:00:00 PM Scheduled Provider: Location:[facility] Appointment Type:CV Procedure - Echo (Adult) Appointment Date:05/15/2022 08:00:00 AM Scheduled Provider:LARY WHEAT DO Location:[facility] [place] Appointment Type:PC OV Future Scheduled Tests Laboratory* A1C Hemoglobin 05/15/22 * Vitamin D Level 05/15/22 * Complete Metabolic Panel 05/15/22 [facility] Evaluation + Plan note Future Appointments Appointment Date:03/20/2022 08:45:00 AM Scheduled Provider: Location:[facility] [place] Appointment Type:CV OV Appointment Date:03/30/2022 02:00:00 PM Scheduled Provider: Location:[facility] Appointment Type:CV Procedure - Echo (Adult) Appointment Date:05/15/2022 08:00:00 AM Scheduled Provider:LARY WHEAT DO Location:[facility] [place] Appointment Type:PC OV Future Scheduled Tests Laboratory* A1C Hemoglobin 05/15/22 * Vitamin D Level 05/15/22 * Complete Metabolic Panel 05/15/22 [facility] Evaluation + Plan note Future Appointments Appointment Date:03/30/2022 02:00:00 PM Scheduled Provider: Location:[facility] Appointment Type:CV Procedure - Echo (Adult) Appointment Date:05/01/2022 08:45:00 AM Scheduled Provider: Location:[facility] [place] Appointment Type:CV OV Appointment Date:05/15/2022 [...] MRI Cardiac Morph W+W/O Cont Flow/Veloc 03/20/22 [facility] Evaluation + Plan note Future Appointments Appointment Date:03/30/2022 02:00:00 PM Scheduled Provider: Location:[facility] Appointment Type:CV Procedure - Echo (Adult) Appointment Date:04/21/2022 04:30:00 PM Scheduled Provider: Location:[facility] Appointment Type:MRI Cardiac Morph W+W/O Cont Flow/Veloc Appointment Date:05/01/2022 08:45:00 AM Scheduled Provider: Location:[facility] [place] Appointment Type:CV OV Appointment Date:05/15/2022 08:00:00 AM Scheduled Provider:LARY WHEAT DO Location:[facility] [place] Appointment Type:PC OV Future Scheduled Tests Laboratory* A1C Hemoglobin 05/15/22 * Vitamin D Level 05/15/22 * Complete Metabolic Panel 05/15/22 * N-Terminal proBNP 04/10/22 Radiology* MRI Cardiac Morph W+W/O Cont Flow/Veloc 04/21/22 [facility] Evaluation + Plan note Future Appointments Appointment Date:04/03/2022 03:00:00 PM Scheduled Provider: Location:[facility] Appointment Type:INF Infusion: Venofer (1 Hour) Appointment Date:04/21/2022 04:30:00 PM Scheduled Provider: Location:[facility] Appointment Type:MRI Cardiac Morph W+W/O Cont Flow/Veloc Appointment Date:05/01/2022 08:45:00 AM Scheduled Provider: Location:[facility] [place] Appointment Type:CV OV Appointment Date:05/15/2022 08:00:00 AM Scheduled Provider:LARY WHEAT DO Location:[facility] [place] Appointment Type:PC OV Future Scheduled Tests Laboratory* A1C Hemoglobin 05/15/22 * Vitamin D Level 05/15/22 * Complete Metabolic Panel 05/15/22 * N-Terminal proBNP 04/10/22 Radiology* MRI Cardiac Morph W+W/O Cont Flow/Veloc 04/21/22 [facility] evaluation + Plan note Future Appointments Appointment Date:04/21/2022 04:30:00 PM Scheduled Provider: Location:[facility] Appointment Type:MRI Cardiac Morph W+W/O Cont Flow/Veloc Appointment Date:05/01/2022 08:45:00 AM Scheduled Provider: Location:[facility] [place] Appointment Type:CV OV Appointment Date:05/15/2022 08:00:00 AM Scheduled Provider:LARY WHEAT DO Location:[facility] [place] Appointment Type:PC OV Future Scheduled Tests Laboratory* A1C Hemoglobin 05/15/22 * Vitamin D Level 05/15/22 * Complete Metabolic Panel 05/15/22 * N-Terminal proBNP 04/10/22 Radiology* MRI Cardiac Morph W+W/O Cont Flow/Veloc 04/21/22 [facility] Evaluation + Plan note Future Appointments Appointment Date:05/01/2022 08:45:00 AM Scheduled Provider: Location:[facility] [place] Appointment Type:CV OV Appointment Date:05/15/2022 08:00:00 AM Scheduled Provider:LARY WHEAT DO Location:[facility] [place] Appointment Type:PC OV Future Scheduled Tests Laboratory* A1C Hemoglobin 05/15/22 * Vitamin D Level 05/15/22 * Complete Metabolic Panel 05/15/22 [facility] Evaluation + Plan note Future Appointments Appointment Date:05/08/2022 12:45:00 PM Scheduled Provider: Location:[facility] Appointment Type:CV DUTY OFFICER Appointment Date:05/15/2022 08:00:00 AM Scheduled Provider:LARY HWEAT DO Location:[facility] [place] Appointment Type:PC OV Appointment Date:06/09/2022 11:30:00 AM Scheduled Provider: Location:[facility] [place] Appointment Type:CV OV Appointment Date:06/17/2022 02:30:00 PM Scheduled Provider: Location:[facility] Appointment Type:CV DUTY OFFICER Future Scheduled Tests Laboratory* A1C Hemoglobin 05/15/22 * Vitamin D Level 05/15/22 * Complete Metabolic Panel 05/15/22 * N-Terminal proBNP 08/01/22 [facility] Evaluation + Plan note Future Appointments Appointment Date:05/29/2022 03:00:00 PM Scheduled Provider: Location:[facility] Appointment Type:CV OV Incision Check Appointment Date:06/09/2022 11:30:00 AM Scheduled Provider: Location:[facility] [place] Appointment Type:CV OV Appointment Date:06/09/2022 01:30:00 PM Scheduled Provider:LARY WHEAT DO Location:[facility] [place] Appointment Type:PC OV Appointment Date:06/17/2022 02:30:00 PM Scheduled Provider: Location:[facility] Appointment Type:CV DUTY OFFICER Appointment Date:09/01/2022 03:30:00 PM Scheduled Provider: Location:[facility] Appointment Type:CV Office Procedure ICD Appointment Date:12/01/2022 08:00:00 AM Scheduled Provider: Location:[facility] Appointment Type:CV Remote Procedure HM Diagnostic Tests Pending * Urine Culture 05/22/22 Future Scheduled Tests Laboratory* A1C Hemoglobin 05/15/22 * Vitamin D Level 05/15/22 * Complete Metabolic Panel 05/15/22 * N-Terminal proBNP 08/01/22 [facility] Evaluation + Plan note Future [...] N-Terminal proBNP 06/01/22 * N-Terminal proBNP 08/01/22 [facility] Evaluation + Plan note Future Appointments Appointment Date:09/01/2022 03:30:00 PM Scheduled Provider: Location:[facility] Appointment Type:CV Office Procedure ICD Appointment Date:09/08/2022 02:00:00 PM Scheduled Provider:LARY WHEAT DO Location:[facility] [place] Appointment Type:PC OV Appointment Date:12/01/2022 08:00:00 AM Scheduled Provider: Location:[facility] Appointment Type:CV Remote Procedure HM Future Scheduled Tests Laboratory* Lipid Profile 1/19/23 * N-Terminal proBNP 08/01/22 * N-Terminal proBNP 09/09/22 * N-Terminal proBNP 12/10/22 [facility] Evaluation + Plan note Future Appointments Appointment Date:07/23/2022 03:00:00 PM Scheduled Provider:LARY WHEAT DO Location:[facility] [place] Appointment Type:PC OV Appointment Date:09/01/2022 03:30:00 PM Scheduled Provider: Location:[facility] Appointment Type:CV Office Procedure ICD Appointment Date:09/08/2022 02:00:00 PM Scheduled Provider:LARY WHEAT DO Location:[facility] [place] Appointment Type:PC OV Appointment Date:12/01/2022 08:00:00 [...] N-Terminal proBNP 09/09/22 * N-Terminal proBNP 12/10/22 [facility] Evaluation + Plan note Future Appointments [...] N-Terminal proBNP 09/09/22 * N-Terminal proBNP 12/10/22 [facility] Evaluation + Plan note Future Appointments [...] N-Terminal proBNP 09/09/22 * N-Terminal proBNP 12/10/22 [facility] Evaluation + Plan note Future [...] 12/10/22 Radiology* CT Thorax w/o Contrast 09/08/22 [facility] Evaluation + Plan note Future Appointments [...] N-Terminal proBNP 12/09/22 * N-Terminal proBNP 12/10/22 [facility] Evaluation + Plan note Future Appointments [...] N-Terminal proBNP 01/28/23 * N-Terminal proBNP 12/10/22 [facility] Evaluation + Plan note Future Appointments [...] N-Terminal proBNP 01/28/23 * N-Terminal proBNP 12/10/22 [facility] Evaluation + Plan note Future Appointments Appointment Date:12/08/2022 03:00:00 PM Scheduled Provider:ALRY WHEAT DO Location:[facility] [place] [...] N-Terminal proBNP 01/28/23 * N-Terminal proBNP 12/10/22 [facility] Evaluation + Plan note Future Appointments [...] N-Terminal proBNP 12/09/22 * N-Terminal proBNP 01/28/23 [facility] Evaluation + Plan note Future Appointments [...] N-Terminal proBNP 12/09/22 * N-Terminal proBNP 01/28/23 [facility] Evaluation + Plan note Future Appointments Appointment Date:05/18/2023 10:00:00 AM Scheduled Provider: Location:[facility] [place] Appointment Type:CV OV Appointment Date:06/29/2023 09:45:00 AM Scheduled Provider: Location:[facility] Appointment Type:CV Remote Procedure HM Appointment Date:07/29/2023 02:45:00 PM Scheduled Provider:ADRIENNE BYERS DO Location:[facility] Appointment Type:PC Wellness Annual Future Scheduled [...] N-Terminal proBNP 12/09/22 * N-Terminal proBNP 01/28/23 [facility] Evaluation + Plan note Future Appointments Appointment Date:06/29/2023 09:45:00 AM Scheduled Provider: Location:[facility] Appointment Type:CV Remote Procedure Appointment Date:07/29/2023 02:45:00 PM Scheduled Provider:ADRIENNE BYERS DO Location:[facility] [place] Appointment Type:PC Wellness Annual Future Scheduled [...] 01/28/23 Radiology* CT Thorax w/o Contrast 11/24/23 [facility] Evaluation + Plan note Future Appointments [...] 01/28/23 Radiology* CT Thorax w/o Contrast 11/24/23 [facility] Evaluation + Plan note Future Appointments [...] 01/28/23 Radiology* CT Thorax w/o Contrast 11/24/23 [facility] Evaluation + Plan note Future Appointments [...] 01/28/23 Radiology* CT Thorax w/o Contrast 11/24/23 [facility] Evaluation + Plan note Future Appointments [...] 01/28/23 Radiology* CT Thorax w/o Contrast 11/24/23 [facility] Evaluation + Plan note Future Appointments Appointment Date:10/28/2023 01:00:00 PM Scheduled Provider: Location:[facility] Appointment Type:OT Outpatient Evaluation Appointment Date:10/29/2023 11:30:00 AM Scheduled Provider:ADRIENNE BYERS DO Location:[facility] Appointment Type:PC OV TCM 30 Appointment [...] 01/28/23 Radiology* CT Thorax w/o Contrast 11/24/23 [facility] Evaluation + Plan note Future Appointments Appointment Date:12/30/2023 01:30:00 PM Scheduled Provider: Location:[facility] Appointment Type:OT Treatment Appointment Date:01/03/2024 01:30:00 PM Scheduled Provider: Location:[facility] Appointment Type:OT Treatment Appointment Date:02/21/2024 02:30:00 PM Scheduled Provider:ADRIENNE BYERS DO Location:[facility] Appointment Type:PC OV Appointment Date:03/03/2024 02:45:00 [...] 01/28/23 Radiology* CT Thorax w/o Contrast 11/24/23 [facility] Evaluation + Plan note Future Appointments Appointment Date:02/21/2024 02:30:00 PM Scheduled Provider:ADRIENNE BYERS DO [facility] Appoint[facility] Type:PC OV Appointment Date:03/03/2024 02:45:00 PM Scheduled Provider: Location:[facility] Appointment Type:CV Remote Procedure Future Scheduled Tests [...] 01/28/23 Radiology* CT Thorax w/o Contrast 11/24/23 [facility] Evaluation + Plan note Future Appointments Appointment Date:06/06/2024 08:30:00 AM Scheduled Provider: Location:[facility] Appointment Type:CV OV Appointment Date:06/16/2024 10:00:00 AM Scheduled Provider: Location:[facility] Appointment Type:CV Remote Procedure HM Appointment Date:06/23/2024 01:30:00 PM Scheduled Provider:ADRIENNE BYERS DO Location:[facility] Appointment Type:PC OV Future Scheduled Tests Laboratory* Basic Metabolic Panel 06/11/23 * Urinalysis 04/29/23 * Lipid Profile 05/03/24 * Albumin/Creatinine Ratio, Random Urine 04/29/23 * Albumin/Creatinine Ratio, Random Urine 02/25/24 * N-Terminal proBNP 05/03/24 Radiology* CT Thorax w/o Contrast 11/24/23 [facility] Evaluation + Plan note Future Appointments Appointment Date:06/06/2024 08:30:00 AM Scheduled Provider: Location:[facility] [place] Appointment Type:CV OV Appointment Date:06/16/2024 10:00:00 AM Scheduled Provider: Location:[facility] Appointment Type:CV Remote Procedure HM Appointment Date:06/23/2024 01:30:00 PM Scheduled Provider:ADRIENNE BYERS DO Location:[facility] Appointment Type:PC OV Appointment Date:12/07/2024 03:00:00 PM Scheduled Provider:ADRIENNE BYERS DO Location:[facility] [place] Appointment Type:PC Wellness Medicare Future Scheduled Tests Laboratory* Basic Metabolic Panel 06/11/23 * Albumin/Creatinine Ratio, Random Urine 02/25/24 Radiology* CT Thorax w/o Contrast 11/24/23 [facility] Evaluation note* Diagnosis Tremor of left hand- Primary [facility] Diagnosis Parkinsonism, unspecified Parkinsonism type (HCC)- Primary Tremor of left hand [facility] 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 Parkinson disease (HCC) Paralysis agitans Nocturnal muscle cramp Cramp of limb [facility] Diagnosis Tremor of left hand [facility] Diagnosis History of stroke- Primary Transient ischemic attack (TIA), and cerebral infarction without residual deficits Spasticity Abnormal involuntary movements Spastic hemiparesis (HCC) Spastic hemiplegia affecting unspecified side [facility] 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 Rita[facility] Work Phone: Evaluation note* Diagnosis Onset Date Resolution Status Cerebrovascular disease acut e CVA (cerebral vascular accident) acute AV node dysfunction acute Ischemic cardiomyopathy acut e Presence of biventricular im plantable cardioverter-defibrillator acute [facility] Work Phone: Evaluation note* Diagnosis Onset Date Resolution Status Cerebrovascular disease acut e CVA (cerebral vascular accident) acute AV node dysfunction acute Ischemic cardiomyopathy acut e Presence of biventricular im plantable cardioverter-defibrillator acute Anxiety acute CVA (cerebral vascular accident) acute Debility acute Depression acute Diabetes mellitus acute GERD (gastroesophageal reflux disease) acute Muscle spasm acute Overactive bladder acute Transient ischemic attack ac resighini Vitamin D deficiency acute HLD (hyperlipidemia) chronic HTN (hypertension) chronic CVA (cerebral vascular accident) acute [facility] Work Phone: Evaluation note* Diagnosis Onset Date Resolution Status Cerebrovascular disease acut e AV node dysfunction acute Ischemic cardiomyopathy acut e Presence of biventricular im plantable cardioverter-defibrillator acute Anxiety acute Debility acute Depression acute Diabetes mellitus acute GERD (gastroesophageal reflux disease) acute Muscle spasm acute Overactive bladder acute Transient ischemic attack ac resighini Vitamin D deficiency acute HLD (hyperlipidemia) chronic HTN (hypertension) chronic Ischemic cardiomyopathy acut e Transient ischemic attack ac resighini PFO (patent foramen ovale) c [facility] Work Phone: Evaluation note* Diagnosis Essential tremor- Primary Essential and other specified forms of tremor Tremor of left hand [facility] Diagnosis Onset Date Resolution Status Cerebrovascular [...] Status Colitis acute Gastrointestinal bleeding, lower acute [facility] Work Phone: Evaluation note* Diagnosis Onset [...] vascular accident) resolved Gastrointestinal bleeding, lower resolved [facility] Work Phone: Evaluation note* Diagnosis History of stroke- Primary Transient ischemic attack (TIA), and cerebral infarction without residual deficits Spasticity Abnormal involuntary movements [facility] Diagnosis Other constipation [facility] Diagnosis Other constipation- Primary Other constipation [facility]* Diagnosis Dizziness and giddiness [facility]* Diagnosis Other forms of dyspnea [facility] Diagnosis Other forms of dyspnea- Primary [facility]* Diagnosis Dizziness and giddiness- Primary Dizziness and giddiness documented [facility]* Diagnosis Tardive dyskinesia- Primary Subacute dyskinesia due to drugs [facility]* Diagnosis Essential tremor- Primary Essential and other specified forms of tremor Dyskinesia, tardive Subacute dyskinesia due to drugs [facility]* Diagnosis Presence of cardiac pacemaker Cardiac pacemaker in situ documented [facility] this [facility]* Diagnosis Essential tremor Essential and other specified forms of tremor Dyskinesia, tardive Subacute dyskinesia due to drugs [facility]* Diagnosis Tardive dyskinesia- Primary Subacute dyskinesia due to drugs [facility]* Diagnosis Chronic systolic (congestive) heart failure (HCC) [facility] Diagnosis Tardive dyskinesia- Primary Subacute dyskinesia due to drugs [facility]* Diagnosis Chronic fatigue and malaise- Primary Chronic fatigue syndrome Iron deficiency anemia, unspecified iron deficiency anemia type History of stroke Transient ischemic attack (TIA), and cerebral infarction without residual deficits Aphasia Tremor Abnormal involuntary movements Ischemic colitis (HCC) Unspecified vascular insufficiency of intestine Myocarditis, unspecified chronicity, unspecified myocarditis type (HCC) Brain fog Anosmia Disturbances of sensation of smell and taste [place] Disturbances of sensation of smell and taste 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 Unintentional weight loss Loss of weight Respiratory failure with hypoxia, unspecified chronicity (HCC) Post-acute sequelae of COVID-19 (PASC) [facility]* Diagnosis Chronic systolic (congestive) heart failure (HCC)- Primary Chronic systolic (congestive) heart failure (HCC) [facility] Author Jaci Greco [facility] October 07, 2023 2:38pm Note Date/Time October 07, 2023 1:59pm [facility] Medical Records Department [address] [place] [address] H&P Exam - Hospitalist 10/07/23 1355 MR#: [id number] Acct: [id number] Name: MANSI CARO Rep #:[id number] 19 : [...] and Plavix who now re-presents to the [facility] ED on 10/07/23 with history of [...] patient administered baclofen 10 mg p.o. x1. [facility] Medical History (Updated 10/07/23 @ 14:[address] Jaci Greco MD) Anxiety and depression AV node dysfunction Cardiac resynchronization therapy defibrillator ([employer] REP-D) in place Cerebral palsy Coronary artery disease [...] (Auto) 41.7 L, Lymph % (Auto) 47.6 H,Ogle % (Auto) 9.0, Eos % (Auto) 0.9, [...] and Plavix who now re-presents to the [facility] ED on 10/07/23 with history of [...] 16 minutes. Charges/Coding Visit Charges Inpatient E&M: 44809 Init Hosp L3 Procedures Hospitalists Procedures: 13070 Advncd Care Plan 30 Min 10/07/23 1438 <Electronically signed by Jaci Greco MD> Cosigner Signature (if applicable): CC: Dr. Jaci Greco MD; Dr. Adrienne Byers DO~ Signed [facility] Work Phone: History and physical note Author Ben Paulinored [facility] February 21, 2024 9:35pm Note Date/Time February 21, 2024 9:35 pm [facility] Medical Records Department [address] [place] [id number] H&P Exam - Hospitalist 02/21/242124 MR#: [id number] Acct: [id number] Name: MANSI CARO Rep #:[id number] : 1955 69 From: Ben Johnson DO PCP: Dr. Adrienne Byers DO Status:ADM IN Location: [facility] [id number] HPI - General General Date of Admission: 02/21/24 Date of Service: 02/21/24 Chief Complaint: Abdominal pain, bright red blood in stool HPI Narrative MANSI CARO, is a 69 F who presents to the emergency room at [facility] for evaluation of right red [...] neoplastic component. Patient will be admitted to [place] [address], she will be placed on IV antibiotics, shewill be seen by gastroenterology, she may need endoscopic procedures. Labs willbe monitored. [facility] Medical History Anxiety and depression AV node dysfunction Cardiac resynchronization therapy defibrillator ([employer] REP-D) in place Cerebral palsy Congestive heart failure [...] (Auto) 88.4 H, Lymph % (Auto) 5.3L, Ogle % (Auto) 5.5, Eos % (Auto) 0.0, [...] Clarity Clear, Urine pH 5.0, Ur Specific [place] 1.015, Urine Protein 15 H, Urine Glucose [...] Colitis-etiology unclear, patient will be admitted to [facility], she was placed on IV [...] 75 minutes Charges/Coding Visit Charges Inpatient E&M: 41096 Init Hosp L3 02/21/242134 <Electronically signed by Ben Johnson DO> Cosigner Signature (if applicable): CC: Dr. eBn Johnson DO; Dr. Adrienne Byers DO~ Signed [facility] Work Phone: History and physical note Author Jose Royal [facility] Note Date/Time July 01, 2025 7: 33pm [facility] Medical Records Department [address] [facility] [place] [address] H&P Exam - Hospitalist 07/01/251926 MR#: [id number] Acct: [id number] Name: MANSI CARO Rep #:[id number] : 1955 70 From: Jose Royal DO PCP: Marci Lopez DO Status:REG E R Location: ED HPI - General General Date of Service: 07/01/25 Chief Complaint: weakness. HPI Narrative MANSI CARO, is a 70 F who presents with weakness and shortness of breath. Patient was admitted from the to 11 June. Patient was found to have pneumonia and was discharged with Levaquin. 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 Per the , patient was doingtoo well to go to longterm facility so went home. While at home she has gradually regressed and is weaker. She has lost roughly 10 pounds. Over the past week. States that things do not taste good. She was checked for COVID last admission which was negative. The change in her taste and smell has happened recently after this most recent illness. But because of her weakness, and weight loss she was brought to the emergency room and the is exasperated and not able to safely care for her at this time. [facility] Medical History Duodenal stenosis Pneumonia Dyspnea Back pain History of Holter [...] (patent foramen ovale) Cardiac resynchronization therapy defibrillator ([employer] REP-D) in place Myocarditis Hyperlipidemia Hypertension Home Medications [...] 0.125 mg tablet 0.125 mg PO TID DE N dyspepsia #90 06/04/25 Unknown Rx tabs lisinopril 10 mg tablet 5 mg (1/2 x 10 mg) PO DAILY #30 06/11/25 Unknown Rx tabs albuterol sulfate 90 mcg/actuation 1 puff inhalation Q 6H PRN PRN 07/01/25 Unknown History aerosol inhaler shortness of breath or wheez ing Allergy/AdvReac Type Severity Reaction Status Date / Time No Known Allergies Allergy Verified 07/01/25 16:40 Family History Father Heart disease Myocardial infarction [...] home: Yes additional social history: - Song Felix Complains of short of breath but is on her percent on nasal cannula. All reviewof systems were negative except as mentioned above in the history of present illness and the other review of systems. Vital Signs Vital Signs Vital Signs: 07/01/25 16:38 07/01/25 16:38 07/01/25 17:05 Temperature 36.8 C Temperature Source Oral Pulse Rate 78 Respiratory Rate 18 Respiratory Effort Normal Non-Labored Respiratory Depth Normal Respiratory Pattern Normal Blood Pressure 149/72 H Blood Pressure Mean 97 Pulse Ox 98 Oxygen Delivery Method Nasal Cannula Room Air Room Air Oxygen Flow Rate (L/min) 3 07/01/25 17:16 07/01/25 17:58 07/01/25 18:00 Temperature Temperature Source Pulse Rate 71 103 H 87 Respiratory Rate 18 14 25 H Respiratory Effort Respiratory Depth Respiratory Pattern Normal Blood Pressure Blood Pressure Mean Pulse Ox Oxygen Delivery Method Oxygen Flow Rate (L/min) 07/01/25 19:00 07/01/25 19:16 Temperature 36.8 C 36.8 C Temperature Source Oral Pulse Rate 83 70 Respiratory Rate 22 H 22 H Respiratory Effort Respiratory Depth Respiratory Pattern Blood Pressure 172/67 H 172/67 H Blood Pressure Mean 102 102 Pulse Ox 100 100 Oxygen Delivery Method Nasal Cannula Oxygen Flow Rate (L/min) 3 Weight Weight: 56.699 kg Body Mass Index (BMI) 19.0 Physical Exam Const alert and no apparent distress Constitutional Narrative: No respiratory distress. No conversational dyspnea. No tachypnea. HEENT normocephalic and head/scalp atraumatic HEENT Narrative: Mucous membranes moist. No evidence of any thrush. No oropharyngeal lesions. Resp normal respiratory effort and no retractions Resp Narrative: Bibasilar crackles Cardio regular rate, regular rhythm, S1 normal heart sound and S2 normal heart sound GI normal to inspection, nondistended, normoactive bowel sounds and soft to palpation Extremity normal to inspection Neuro Sensorium / Orientation: awake and alert Psych affect normal Results Lab / Micro Data 07/01/25 17:12 07/01/25 17:12 Labs: Laboratory Results - last 24 hr 07/01/25 17:12: WBC 4.0 L, RBC 3.46 L, Hgb 10.3 L, Hct 31.8 L, MCV 91.9, MCH 29.8, MCHC 32.4, RDW Std Deviation 44.8 H, RDW Coeff of Edita 13.2, Plt Count 192,MPV 10.6, Immature Gran % (Auto) 0.200, Neut % (Auto) 49.2, Lymph % (Auto) 34.9,Ogle % (Auto) 13.2 H, Eos % (Auto) 2.0, Baso % (Auto) 0.5, Absolute Neuts (auto)2.0, Absolute Lymphs (auto) 1.40, Nucleated RBC % 0, D-Dimer Quant (PE/DVT) 1.39H*, Sodium 140, Potassium 3.6, Chloride 108, Carbon Dioxide 24.6, Anion Gap 8, BUN 12, Creatinine 0.90, Estim Creat Clear Calc 50.57, Est GFR (MDRD) Non-Af 68,BUN/Creatinine Ratio 13.2, Glucose 100 H, Calcium 8.1, Troponin T High Sens 11, NT pro BNP II 948 H EKG Initial EKG: Attestation: I personally reviewed and interpreted this EKG as follows: Prior EKG tracings: available for review (Ventricular paced rhythm) Imaging Radiology Impression Chest X-Ray 07/01/25 17:37 IMPRESSION: Improvement in the bibasilar pulmonary opacities, compatible with pneumonitis/pneumonia. Reading Location: [facility] Chest CTA 07/01/25 18:03 IMPRESSION: 1. No evidence of pulmonary embolism. 2. Stable ground-glass opacities throughout the dependent and bibasilar lungs, compatible with pneumonitis/pneumonia. Clinical correlation recommended. Reading Location: [facility] Assessment & Plan Assessment/Plan (1) Failure to thrive: PLAN: Patient has declined since being discharged late last month. Plan is for PT OT evaluate and treat. Case management to assist on disposition. does not feel he can safely care for her at this time. (2) Protein calorie malnutrition: PLAN: Weight is down about a kilogram in half since last admission. Will start supplements. Consult nutrition for further recommendations. PLAN: Plan COPD: Not in exacerbation. Patient does feel short of breath but she is 100%. Anemia: Stable. Continue with ferrous sulfate. VTE prophylaxis with enoxaparin CODE STATUS: Addressed with the patient and her . Patient is to be full code. Charges/Coding Visit Charges Inpatient E&M: 64512 Init Hosp L2 07/01/251932 <Electronically signed by Jose Royal DO> Cosigner Signature (if applicable): CC: Dr. Jose Royal, DO; Marci Lopez DO~ Signed [facility] Work Phone: Hospital course Narrative No data available for this section [facility] Hospital Discharge instructions No data available for this section [facility] Hospital Discharge instructions Additional Instructions Follow-up at your PCP appointment on Wednesday and return for any worsening of your symptoms. Stay well-hydrated, you can take either MiraLAX or Dulcolax for your constipation. [facility] Work Phone: Hospital Discharge instructions Additional Instructions You can take [id number] pain relievers or your oxycodone as needed for breakthrough pain. [facility] Work [facility]: Hospital Discharge instructionsAdditional Instructions Follow-up your doctor in outpatient setting. Take antibiotics for your urinary tract infection as prescribed use other antibiotics as prescribed as well. Return with worsening symptoms or any concerns. 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, unspecified Parkinsonism type (HCC) Procedures NM BRAIN TREMOR SPECT/CT RP LOCLZJ YASMANI SPECT W/CT 1 AREA 1 DAY IMAGING Sherif Ramirez MD [address] [place] [address] [facility] [address] [place] [address] Referral ID Status Reason Start Date Expiration Date Visits Requested Visits Authorized [id number] Authorized Auto-Generat ed Referral 07/01/2023 07/30/2024 1 1 [facility] for visit Narrative* Diagnostic Procedure Only (Routine) - Closed Specialty Diagnoses / Procedures Referred By Oni angel Referred To Contact [facility]LECULAR [facility] FUNCTIONAL IMAGING 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, unspecified Parkinsonism type Procedures NM BRAIN TREMOR SPECT/CT RP LOCLZJ YASMANI SPECT W/CT 1 AREA 1 DAY IMAGING Sherif Ramirez MD [address] [place] [address] [facility] [address] [place] [address] Referral ID Status Reason Start Date Expiration Date V isits Requested Visits Authorized [id number] Closed Auto-Generate d Referral 07/01/2023 07/30/2024 1 1 [facility] for visit Narrative* Diagnostic Procedure Only (Routine) - Closed Specialty Diagnoses / Procedures Referred By Oni angel Referred To Contact Radiology / RADIO CT SCAN Diagnoses Solitary pulmonary nodule CT CHEST W/O CONTRAST R91.1 pulmonary nodule ORDER IN SCANNED DOCS AUTH # [id number] VALID 07.12.24 TO 09.10.24 Procedures DIAGNOSTIC COMPUTED TOMOGRAPHY THORAX W/O CNTRST CT WO CH 400 Martha Pillai V, MD [address] [facility] [address] [place] [address] Referral ID Status Reason Start Date Expiration Date Visits Re quested Visits Authorized [id number] Closed 07/12/2024 09/10/2024 1 1 [facility] for visit Narrative* Imaging (Routine) - Closed Specialty Diagnoses / Procedures Referred By Oni angel Referred To Contact Cardiology Diagnoses Dizziness and giddiness Procedures Vascular US carotid artery [place] [address] Phone: tel: fax: Referral ID Status Reason Start Date Expiration Date Visits Re quested Visits Authorized [id number] Closed 11/07/2024 11/07/2025 1 1 [facility] for visit Narrative* (Routine) - Pending Review Specialty Diagnoses / Procedures Referred By Oni t Referred To Contact Diagnoses Other forms of dyspnea Procedures Complete PFT pre and post bronchodilator Saranya [place] [address] Phone: tel: fax: Referral ID Status Reason Start Date Expiration Date V isits Requested Visits Authorized [id number] Pending Review 10/13/2024 10/08/2025 1 1 [facility] for visit Narrative* MRI/CT (Routine) - Authorized Specialty Diagnoses / Procedures Referred By Oni t Referred To Contact Radiology / RADIO CT SCAN Diagnoses Other nonspecific abnormal finding of lung field CT Chest wo contrast DX: R91.8 Auth# [id number] Order scanned into chart on 01/05/2025 Procedures DIAGNOSTIC COMPUTED TOMOGRAPHY THORAX W/O CNTRST CT WO CH 400 Kalen Izaguirre MD [address] [address] Phone: tel: fax: RADIO CT SCAN [facility] [address] [place] [address] Phone: tel: fax: Referral ID Status Reason Start Date Expiration Date V isits Requested Visits Authorized [id number] Authorized 01/02/2025 03/03/2025 2 2 [facility] for visit Narrative* MRI/CT (Routine) - Closed Specialty Diagnoses / Procedures Referred By Oni t Referred To Contact MR IMAGING Diagnoses Essential tremor Dyskinesia, tardive Procedures MRI BRAIN WO IVCON MRI BRAIN BRAIN STEM W/O CONTRAST MATERIAL Leyla Murphy MD [address] [facility] [address] [place] [address] Phone: tel: fax: [place] [address] Referral ID Status Reason Start Date Expiration Date V isits Requested Visits Authorized [id number] Closed Auto-Generate d Referral 03/23/2025 05/22/2025 1 1 [facility] Summary Purpose Family History No Family History [...] Will Yes September 28 8:21pm Power of Metallographer Yes September 28, 2023 8:21pm Name of Medical Power of Metallographer BEATRICE PENA September 28, 2023 8:21pm Advance Directive Response Recorded Date/ Time Name of Medical Power of Metallographer Song yeboah September 28, 2023 10:25pm Advance Directives Yes May 18 7:27pm Living Will Yes September 28 10:25pm Power of Metallographer Yes September 28, 2023 10:25pm Advance Directive Response Recorded Date/ Time Name of Medical Power of Metallographer Song yeboah September 28, 2023 10:25pm Name of Medical Power of Metallographer jose Naqvi October 04, 2023 1:28pm Name of Medical Power of Metallographer spouse October 07, 2023 1:12pm Advance Directives Yes May 18 7:27pm Living Will Yes October 07 023 1:12pm Power of Metallographer Yes October 07, 2023 1:12pm Advance Directive Response Recorded Date/ Time Name of Medical Power of Metallographer Song yeboah September 28, 2023 10:25pm Name of Medical Power of Metallographer jose Naqvi October 04, 2023 1:28pm Name of Medical Power of Metallographer spouse October 07, 2023 3:14pm Advance Directives Yes May 18 7:27pm Living Will Yes October 07, 2 023 3:14pm Power of Metallographer Yes October 07, 2023 3:14pm Advance Directive Response Recorded Date/ Time Name of Medical Power of Metallographer Song yeboah September 28, 2023 10:25pm Name of Medical Power of Metallographer Beatrice jose Caro October 04, 2023 1:28pm Name of Medical Power of Metallographer spouse October 07, 2023 3:14pm Name of Medical Power of Metallographer Song Dianasherlynkatelynn December 08, 2023 3:46pm Advance Directives Yes May 18 7:27pm Living Will Yes December 08 3:46pm Power of Metallographer Yes December 08, 2023 3:46pm Advance Directive Response Recorded Date/ Time Name of Medical Power of Metallographer Songdhruv Ortizsherlynkatelynn December 08, 2023 4:46pm Advance Directives Yes May 18 8:27pm Living Will No February 19, 2024 4:09pm Power of Metallographer No February 18 4:09pm Advance Directive Response Recorded Date/ Time Name of Medical Power of Metallographer Songdhruv Ortizsherlynkatelynn December 08, 2023 4:46pm Advance Directives Yes May 18 8:27pm Living Will No February 21, 2024 3:03pm Power of Metallographer No February 20 3:03pm Advance Directive Response Recorded Date/ Time Name of Medical Power of Metallographer Song Dianasherlynkatelynn December 08, 2023 4:46pm Name of Medical Power of Metallographer Song yeboah February 21, 2024 10:15pm Advance Directives Yes May 18 8:27pm Living Will Yes February 21, 2024 10:15pm Power of Metallographer Yes February 20 10:15pm Advance Directive Response Recorded Date/ Time Name of Medical Power of Metallographer Song Ramírez December 08, 2023 4:46pm Name of Medical Power of Metallographer Song yeboah February 21, 2024 10:15pm Name of Medical Power of Metallographer eris Cuello March 08, 2024 4:39pm Advance Directives Yes May 18 8:27pm Living Will Yes March 08, 2024 4:39pm Power of Metallographer Yes March 08 4:39pm Advance Directive Response Recorded Date/ Time Living Will Yes July 03 7:58pm Do you have a Healthcare Power of Metallographer? Yes July 03, 2024 7:58pm Advance Directives Yes October 2:46pm Living Will Yes September 09 2:39pm Do you have a Healthcare Power of Metallographer? Yes September 09, 2024 2:39pm Living Will No November 18 3:39pm Do you have a Healthcare Power of Metallographer? No November 18, 2024 3:39pm Living Will No March 10, 2025 11:55am Do you have a Healthcare Power of Metallographer? No March 10, 2025 11:55am Advance Directive Response Recorded Date/ Time Living Will Yes July 03 7:58pm Do you have a Healthcare Power of Metallographer? Yes July 03, 2024 7:58pm Advance Directives Yes October 2:46pm Living Will No March 10, 2025 11:55am Do you have a Healthcare Power of Metallographer? No March 10, 2025 11:55am Advance Directive Response Recorded Date/ Time Living Will Yes July 03 7:58pm Do you have a Healthcare Power of Metallographer? Yes July 03, 2024 7:58pm Living Will No March 10, 2025 11:55am Do you have a Healthcare Power of Metallographer? No March 10, 2025 11:55am Do you have a Healthcare Power of Metallographer? Yes April 19, 2025 3:35am Advance Directives Yes October 2:46pm Advance Directive Response Recorded Date/ Time Living Will Yes July 03 7:58pm Do you have a Healthcare Power of Metallographer? Yes July 03, 2024 7:58pm Living Will No March 10, 2025 11:55am Do you have a Healthcare Power of Metallographer? No March 10, 2025 11:55am Do you have a Healthcare Power of Metallographer? Yes April 19, 2025 1:19pm Advance Directives Yes October 2:46pm Advance Directive Response Recorded Date/ Time Living Will Yes July 03 7:58pm Do you have a Healthcare Pow er of Metallographer? Yes July 03, 2024 7:58pm Do you have a Healthcare Pow er of Metallographer? No April 23, 2025 4:09pm Do you have a Healthcare Pow er of Metallographer? Yes April 24, 2025 3:39pm Name of Medical Power of Metallographer Song yeboah, April 24, 2025 3:39pm Living Will No March 10, 2025 11:55am Do you have a Healthcare Pow er of Metallographer? No March 10, 2025 11:55am Do you have a Healthcare Pow er of Metallographer? Yes April 19, 2025 1:19pm Advance Directives Yes October 2:46pm Advance Directive Response Recorded Date/ Time Living Will Yes July 03 7:58pm Do you have a Healthcare Pow er of Metallographer? Yes July 03, 2024 7:58pm Do you have a Healthcare Pow er of Metallographer? No April 23, 2025 4:09pm Do you have a Healthcare Pow er of Metallographer? Yes April 24, 2025 3:39pm Name of Medical Power of Metallographer Song yeboah, April 24, 2025 3:39pm Do you have a Healthcare Pow er of Metallographer? No May 22, 2025 4:39pm Living Will No March 10, 2025 11:55am Do you have a Healthcare Pow er of Metallographer? No March 10, 2025 11:55am Do you have a Healthcare Pow er of Metallographer? Yes April 19, 2025 1:19pm Advance Directives Yes October 2:46pm Advance Directive Response Recorded Date/ Time Do you have a Healthcare Pow er of Metallographer? No April 23, 2025 4:09pm Do you have a Healthcare Pow er of Metallographer? Yes April 24, 2025 3:39pm Name of Medical Power of Metallographer Song yeboah, April 24, 2025 3:39pm Do you have a Healthcare Pow er of Metallographer? No May 22, 2025 4:39pm Living Will No March 10, 2025 11:55am Do you have a Healthcare Pow er of Metallographer? No March 10, 2025 11:55am Do you have a Healthcare Pow er of Metallographer? Yes April 19, 2025 1:19pm Advance Directives Yes October 2:46pm Advance Directive Response Recorded Date/ Time Do you have a Healthcare Pow er of Metallographer? No April 23, 2025 4:09pm Do you have a Healthcare Pow er of Metallographer? Yes April 24, 2025 3:39pm Name of Medical Power of Metallographer Song Ortiztamikanatalia yeboah, April 24, 2025 3:39pm Do you have a Healthcare Pow er of Metallographer? No May 22, 2025 4:39pm Living Will No March 10, 2025 11:55am Do you have a Healthcare Pow er of Metallographer? No March 10, 2025 11:55am Do you have a Healthcare Pow er of Metallographer? Yes April 19, 2025 1:19pm Do you have a Healthcare Pow er of Metallographer? No June 02, 2025 10:35am Advance Directives Yes October 2:46pm Advance Directive Response Recorded Date/ Time Do you have a Healthcare Pow er of Metallographer? No April 23, 2025 4:09pm Do you have a Healthcare Pow er of Metallographer? Yes April 24, 2025 3:39pm Name of Medical Power of Metallographer Song Ortiztamikanatalia yeboah, April 24, 2025 3:39pm Do you have a Healthcare Pow er of Metallographer? No May 22, 2025 4:39pm Living Will No March 10, 2025 11:55am Do you have a Healthcare Pow er of Metallographer? No March 10, 2025 11:55am Do you have a Healthcare Pow er of Metallographer? Yes April 19, 2025 1:19pm Do you have a Healthcare Pow er of Metallographer? Yes June 02, 2025 2:27pm Advance Directives Yes October 2:46pm Advance Directive Response Recorded Date/ Time Do you have a Healthcare Pow er of Metallographer? No April 23, 2025 4:09pm Do you have a Healthcare Pow er of Metallographer? Yes Fara 3rd, 2025 3:39pm Name of Medical Power of Metallographer Songdhruv yeboah, April 24, 2025 3:39pm Do you have a Healthcare Pow er of Metallographer? No May 22, 2025 4:39pm Living Will No March 10, 2025 11:55am Do you have a Healthcare Pow er of Metallographer? No March 10, 2025 11:55am Do you have a Healthcare Pow er of Metallographer? Yes April 19, 2025 1:19pm Do you have a Healthcare Pow er of Metallographer? Yes June 02, 2025 2:27pm Do you have a Healthcare Pow er of Metallographer? Yes July 01, 2025 4:38pm Advance Directives Yes October 2:46pm Advance Directive Response Recorded Date/ Time Do you have a Healthcare Pow er of Metallographer? No April 23, 2025 4:09pm Do you have a Healthcare Pow er of Metallographer? Yes April 24, 2025 3:39pm Name of Medical Power of Metallographer Songdhruv yeboah, April 24, 2025 3:39pm Do you have a Healthcare Pow er of Metallographer? No May 22, 2025 4:39pm Living Will No March 10, 2025 11:55am Do you have a Healthcare Pow er of Metallographer? No March 10, 2025 11:55am Do you have a Healthcare Pow er of Metallographer? Yes April 19, 2025 1:19pm Do you have a Healthcare Pow er of Metallographer? Yes June 02, 2025 2:27pm Do you have a Healthcare Pow er of Metallographer? Yes July 01, 2025 9:16pm Advance Directives Yes October 2:46pm Advance Directive Response Recorded Date/ Time Do you have a Healthcare Pow er of Metallographer? No April 23, 2025 4:09pm Do you have a Healthcare Pow er of Metallographer? Yes April 24, 2025 3:39pm Name of Medical Power of Metallographer Song Agapitonatalia yeboah, April 24, 2025 3:39pm Do you have a Healthcare Pow er of Metallographer? No May 22, 2025 4:39pm Do you have a Healthcare Pow er of Metallographer? Yes May 29th, 2025 1:19pm Do you have a Healthcare Pow er of Metallographer? Yes June 02, 2025 2:27pm Do you have a Healthcare Pow er of Metallographer? Yes July 01, 2025 9:16pm Advance Directives Yes October 2:46pm Advance Directive Response Recorded Date/ Time Do you have a Healthcare Pow er of Metallographer? No April 23, 2025 4:09pm Do you have a Healthcare Pow er of Metallographer? Yes April 24, 2025 3:39pm Name of Medical Power of Metallographer Song yeboah, April 24, 2025 3:39pm Do you have a Healthcare Pow er of Metallographer? No May 22, 2025 4:39pm Do you have a Healthcare Pow er of Metallographer? Yes April 19, 2025 1:19pm Do you have a Healthcare Pow er of Metallographer? Yes June 02, 2025 2:27pm Do you have a Healthcare Pow er of Metallographer? Yes July 01, 2025 9:16pm Advance Directives Yes July 17, 2025 10:59am Advance Directive Response Recorded Date/ Time Living Will Yes July 03 7:58pm Do you have a Healthcare Pow er of Metallographer? Yes July 03, 2024 7:58pm Do you have a Healthcare Pow er of Metallographer? No April 23, 2025 4:09pm Do you have a Healthcare Pow er of Metallographer? Yes April 24, 2025 3:39pm Name of Medical Power of Metallographer Song yeboah, April 24, 2025 3:39pm Do you have a Healthcare Pow er of Metallographer? No May 22, 2025 4:39pm Do you have a Healthcare Pow er of Metallographer? Yes April 19, 2025 1:19pm Do you have a Healthcare Pow er of Metallographer? Yes June 02, 2025 2:27pm Do you have a Healthcare Pow er of Metallographer? Yes July 01, 2025 9:16pm Advance Directives Yes July 17, 2025 10:59am Advance Directive Response Recorded Date/ Time Living Will Yes July 03 7:58pm Do you have a Healthcare Pow er of Metallographer? Yes July 03, 2024 7:58pm Advance Directives Yes July 17, 2025 10:59am Do you have a Healthcare Pow er of Metallographer? No April 23, 2025 4:09pm Do you have a Healthcare Pow er of Metallographer? Yes April 24, 2025 3:39pm Name of Medical Power of Metallographer Song yeboah, April 24, 2025 3:39pm Do you have a Healthcare Pow er of Metallographer? No May 22, 2025 4:39pm Do you have a Healthcare Pow er of Metallographer? Yes April 19, 2025 1:19pm Do you have a Healthcare Pow er of Metallographer? Yes June 02, 2025 2:27pm Do you have a Healthcare Pow er of Metallographer? Yes July 01, 2025 9:16pm Advance Directive Response Recorded Date/ Time Living Will Yes July 03 7:58pm Do you have a Healthcare Pow er of Metallographer? Yes July 03, 2024 7:58pm Advance Directives Yes July 17, 2025 10:59am Do you have a Healthcare Pow er of Metallographer? Yes April 24, 2025 3:39pm Name of Medical Power of Metallographer Song yeboah, April 24, 2025 3:39pm Do you have a Healthcare Pow er of Metallographer? No May 22, 2025 4:39pm Do you have a Healthcare Pow er of Metallographer? Yes June 02, 2025 2:27pm Do you have a Healthcare Pow er of Metallographer? Yes July 01, 2025 9:16pm Reason for Referral Specialty Diagnoses / Procedures Referred By Oni angel Referred To Contact Diagnoses Tremor of left hand Essential tremor Procedures PROVIDER ORDERED FOLLOW UP OFFICE/OUTPATIENT [facility] 60-74 MINUTES Sherif Ramirez MD [address] [place] [address] Referral ID Status Reason Start Date Expiration Date Visits Requested Visits Authorized [id number] Pending Review PCP Requested Referral 3 01/18/2024 1 1 Specialty Diagnoses / Procedures Referred By Oni angel Referred To Contact [facility] Diagnoses Tremor of left hand Essential tremor Procedures CONSULT TO BELT FIXER [facility]ATIONAL [facility] Sherif Ramirez MD [address] [place] [address] [facility] [address] [place] [address] Referral ID Status Reason Start Date Expiration Date Visits Requested Visits Authorized [id number] Pending Review Auto-Generat ed Referral 3 10/19/2024 1 1 Specialty Diagnoses / Procedures Referred By Contac t Referred To Contact Diagnoses Tremor of left hand Procedures PROVIDER ORDERED FOLLOW UP OFFICE/OUTPATIENT [facility] 60-74 MINUTES Sherif Ramirez MD [address] [place] [address] Referral ID Status Reason Start Date Expiration Date Visits Requested Visits Authorized [id number] Authorized PCP Requested Referral 06/23/2022 06/23/2023 1 1 Specialty Diagnoses / Procedures Referred By Contac t Referred To Contact Neurology Diagnoses Tremor of left hand Procedures CONSULT TO NEUROLOGY OFFICE/OUTPATIENT [facility] 60-74 MINUTES Ghazala Gusman MD [address] [place] [address] Referral ID Status Reason Start Date Expiration Date Visits Requested Visits Authorized [id number] Authorized PCP Requested Referral 06/04/2022 06/04/2023 1 [...] pm Pneumonia June 02, 2025 1:36 pm Chief Complaint Admit Date Fall March 10, 2025 11: 27am Pacer [...] PNEUMONIA, HYPOXIA June 11, 2025 12:0 6pm FAILURE TO THRIVE July 01, 2025 7: 22pm Shortness of breath July 01, 2025 7: 27pm Reason for Visit Admit Date Generalized weakness April 19, 2025 11:2 6am [...] of stent in coronary artery May 3:08pm Abdominal pain May 30, 2025 1:59p m Irritable bowel syndrome May 30, 2025 1:59pm Ischemic colitis May 30, 2025 1:59p m Duodenal stenosis June 02, 2025 1:36 pm Dyspnea June 02, 2025 1:36 pm Pneumonia June 02, 2025 1:36 pm Failure to thrive July 01, 2025 7: 22pm Protein calorie malnutrition June 7:22pm Chief Complaint Admit Date Fall March 10, 2025 11: 27am Pacer [...] PNEUMONIA, HYPOXIA June 11, 2025 12:0 6pm FAILURE TO THRIVE July 01, 2025 7: 22pm Shortness of breath July 01, 2025 7: 27pm FAILURE TO THRIVE July 02, 2025 9: 51am FAILURE TO THRIVE July 03, 2025 10 :52am FAILURE TO THRIVE July 04, 2025 8: 57am Chief Complaint Admit Date Pacer Check Remote April 19, 2025 12:22 [...] PNEUMONIA, HYPOXIA June 11, 2025 12:0 6pm FAILURE TO THRIVE July 01, 2025 7: 22pm Shortness of breath July 01, 2025 7: 27pm FAILURE TO THRIVE July 02, 2025 9: 51am FAILURE TO THRIVE July 03, 2025 10 :52am FAILURE TO THRIVE July 04, 2025 8: 57am [facility] FU- COPD July 12, 2025 9: 34am Reason for Visit Admit Date Generalized weakness April 19, 2025 11:2 6am [...] pm Pneumonia June 02, 2025 1:36 pm Failure to thrive July 01, 2025 7: 22pm Protein calorie malnutrition June 7:22pm SHORE (dyspnea on exertion) July 12, 025 9:34am Nicotine dependence, cigarettes, in adama ssion July 12, 2025 9:34am Chief Complaint Admit Date Pacer Check Remote April 19, 2025 12:22 [...] PNEUMONIA, HYPOXIA June 11, 2025 12:0 6pm FAILURE TO THRIVE July 01, 2025 7: 22pm Shortness of breath July 01, 2025 7: 27pm FAILURE TO THRIVE July 02, 2025 9: 51am FAILURE TO THRIVE July 03, 2025 10 :52am FAILURE TO THRIVE July 04, 2025 8: 57am LABWORK July 09, 2025 5: 00am Hospital FU- COPD July 12, 2025 9: 34am F17.211 - Nicotine dependence, cigarette s, in adama July 16, 2025 12:12pm F17.211 - Nicotine dependence, cigarette s, in adama July 19, 2025 9:53am Abdominal pain July 20, 2025 12 :48pm Reason for Visit Admit Date Generalized weakness April 19, 2025 11:2 6am [...] pm Pneumonia June 02, 2025 1:36 pm Failure to thrive July 01, 2025 7: 22pm Protein calorie malnutrition June 7:22pm SHORE (dyspnea on exertion) July 12, 2 025 9:34am Nicotine dependence, cigarettes, in adama ssion July 12, 2025 9:34am Abdominal pain July 20, 2025 12 :48pm Chief Complaint Admit Date Pacer Check Remote April 19, 2025 12:22 [...] PNEUMONIA, HYPOXIA June 11, 2025 12:0 6pm FAILURE TO THRIVE July 01, 2025 7: 22pm Shortness of breath July 01, 2025 7: 27pm FAILURE TO THRIVE July 02, 2025 9: 51am FAILURE TO THRIVE July 03, 2025 10 :52am FAILURE TO THRIVE July 04, 2025 8: 57am LABWORK July 09, 2025 5: 00am Hospital FU- COPD July 12, 2025 9: 34am F17.211 - Nicotine dependence, cigarette s, in adama July 16, 2025 12:12pm F17.211 - Nicotine dependence, cigarette s, in adama July 19, 2025 9:53am Abdominal pain July 20, 2025 12 :48pm F17.211 - Nicotine dependence, cigarette s, in adama July 25, 2025 12:44pm Annual DEALER SALES REP-D check July 26, 2025 1:47pm Reason for Visit Admit Date Generalized weakness April 19, 2025 11:2 6am Calcium deficiency April 20, 2025 4:10p m CVA (cerebral vascular accident) March 4:10pm Debility April 20, 2025 4:10p m Depression April 20, 2025 4:10p m Diabetes mellitus April 20, 2025 4:10p m GERD (gastroesophageal reflux disease) [facility] 2024 4:10pm Insomnia April 20, 2025 4:10p [...] pm Pneumonia June 02, 2025 1:36 pm Failure to thrive July 01, 2025 7: 22pm Protein calorie malnutrition June 7:22pm SHORE (dyspnea on exertion) July 12, 2 025 9:34am Nicotine dependence, cigarettes, in adama ssion July 12, 2025 9:34am Abdominal pain July 20, 2025 12 :48pm AV node dysfunction July 26, 2025 1:47pm Cardiac defibrillator in place July 26, 2025 1:47pm Heart failure with reduced ejection frac tion July 26, 2025 1:47pm Presence of biventricular im plantable cardioverter-defibrillator July 26, 2025 1:47pm Chief Complaint Admit Date Pacer Check Remote April 19, 2025 12:22 [...] PNEUMONIA, HYPOXIA June 11, 2025 12:0 6pm FAILURE TO THRIVE July 01, 2025 7: 22pm Shortness of breath July 01, 2025 7: 27pm FAILURE TO THRIVE July 02, 2025 9: 51am FAILURE TO THRIVE July 03, 2025 10 :52am FAILURE TO THRIVE July 04, 2025 8: 57am LABWORK July 09, 2025 5: 00am Hospital FU- COPD July 12, 2025 9: 34am F17.211 - Nicotine dependence, cigarette s, in adama July 16, 2025 12:12pm F17.211 - Nicotine dependence, cigarette s, in adama July 19, 2025 9:53am Abdominal pain July 20, 2025 12 :48pm F17.211 - Nicotine dependence, cigarette s, in adama July 25, 2025 12:44pm Pacer Check Remote July 26, 2025 9:00am Annual DEALER SALES REP-D check July 26, 2025 1:47pm Pacer Check Remote July 30, 2025 12:20am Chief Complaint Admit Date Pacer Check Remote April 19, 2025 12:22 [...] PNEUMONIA, HYPOXIA June 11, 2025 12:0 6pm FAILURE TO THRIVE July 01, 2025 7: 22pm Shortness of breath July 01, 2025 7: 27pm FAILURE TO THRIVE July 02, 2025 9: 51am FAILURE TO THRIVE July 03, 2025 10 :52am FAILURE TO THRIVE July 04, 2025 8: 57am LABWORK July 09, 2025 5: 00am Hospital FU- COPD July 12, 2025 9: 34am F17.211 - Nicotine dependence, cigarette s, in adama July 16, 2025 12:12pm F17.211 - Nicotine dependence, cigarette s, in adama July 19, 2025 9:53am Abdominal pain July 20, 2025 12 :48pm F17.211 - Nicotine dependence, cigarette s, in adama July 25, 2025 12:44pm Pacer Check Remote July 26, 2025 9:00am Annual DEALER SALES REP-D check July 26, 2025 1:47pm Pacer Check Remote July 30, 2025 12:20am Rescheduled MED f/u August 06, 2025 2:41pm Chief Complaint Admit Date Pacer Check Remote April 19, 2025 12:22 [...] PNEUMONIA, HYPOXIA June 11, 2025 12:0 6pm FAILURE TO THRIVE July 01, 2025 7: 22pm Shortness of breath July 01, 2025 7: 27pm FAILURE TO THRIVE July 02, 2025 9: 51am FAILURE TO THRIVE July 03, 2025 10 :52am FAILURE TO THRIVE July 04, 2025 8: 57am LABWORK July 09, 2025 5: 00am Hospital FU- COPD July 12, 2025 9: 34am F17.211 - Nicotine dependence, cigarette s, in adama July 16, 2025 12:12pm F17.211 - Nicotine dependence, cigarette s, in adama July 19, 2025 9:53am Abdominal pain July 20, 2025 12 :48pm F17.211 - Nicotine dependence, cigarette s, in adama July 25, 2025 12:44pm Pacer Check Remote July 26, 2025 9:00am Annual DEALER SALES REP-D check July 26, 2025 1:47pm Pacer Check Remote July 30, 2025 12:20am Pacer Check Remote August 06, 2025 12:22am Rescheduled MED f/u August 06, 2025 2:41pm Reason for Visit Admit Date Generalized weakness April 19, 2025 11:2 6am [...] pm Pneumonia June 02, 2025 1:36 pm Failure to thrive July 01, 2025 7: 22pm Protein calorie malnutrition June 7:22pm SHORE (dyspnea on exertion) July 12, 2 025 9:34am Nicotine dependence, cigarettes, in adama ssion July 12, 2025 9:34am Abdominal pain July 20, 2025 12 :48pm AV node dysfunction July 26, 2025 1:47pm Cardiac defibrillator in place July 26, 2025 1:47pm Heart failure with reduced ejection frac tion July 26, 2025 1:47pm Presence of biventricular im plantable cardioverter-defibrillator July 26, 2025 1:47pm Abdominal pain August 06, 2025 2:41pm Nocturia August 06, 2025 2:41pm Overactive bladder August 06, 2025 2:41pm Urge incontinence August 06, 2025 2:41pm Chronic constipation August 06 2:41pm Urinary tract infection August 06, 2025 2:41pm Chief Complaint Admit Date GENERALIZED WEAKNESS April 20, 2025 4:10 pm [...] PNEUMONIA, HYPOXIA June 11, 2025 12:0 6pm FAILURE TO THRIVE July 01, 2025 7: 22pm Shortness of breath July 01, 2025 7: 27pm FAILURE TO THRIVE July 02, 2025 9: 51am FAILURE TO THRIVE July 03, 2025 10 :52am FAILURE TO THRIVE July 04, 2025 8: 57am LABWORK July 09, 2025 5: 00am Hospital FU- COPD July 12, 2025 9: 34am F17.211 - Nicotine dependence, cigarette s, in adama July 16, 2025 12:12pm F17.211 - Nicotine dependence, cigarette s, in adama July 19, 2025 9:53am Abdominal pain July 20, 2025 12 :48pm F17.211 - Nicotine dependence, cigarette s, in adama July 25, 2025 12:44pm Pacer Check Remote July 26, 2025 9:00am Annual DEALER SALES REP-D check July 26, 2025 1:47pm Pacer Check Remote July 30, 2025 12:20am Pacer Check Remote August 06, 2025 12:22am Rescheduled MED f/u August 06, 2025 2:41pm 3 M FU/ Abd Pain August 29, 2025 2: 03pm Reason for Visit Admit Date Calcium deficiency April 20, 2025 4:10p m [...] HLD (hyperlipidemia) April 20, 2025 4:10 pm Ischemic cardiomyopathy May 29, 2025 3 :08pm [...] pm Pneumonia June 02, 2025 1:36 pm Failure to thrive July 01, 2025 7: 22pm Protein calorie malnutrition June 7:22pm SHORE (dyspnea on exertion) July 12, 2 025 9:34am Nicotine dependence, cigarettes, in adama ssion July 12, 2025 9:34am Abdominal pain July 20, 2025 12 :48pm AV node dysfunction July 26, 2025 1:47pm Cardiac defibrillator in place July 26, 2025 1:47pm Heart failure with reduced ejection frac tion July 26, 2025 1:47pm Presence of biventricular im plantable cardioverter-defibrillator July 26, 2025 1:47pm Abdominal pain August 06, 2025 2:41pm Nocturia August 06, 2025 2:41pm Overactive bladder August 06, 2025 2:41pm Urge incontinence August 06, 2025 2:41pm Chronic constipation August 06 2:41pm Urinary tract infection August 06, 2025 2:41pm Additional Source Comments INFORMATION SOURCE (unrecogn ized section and content) DATE CREATED AUTHOR 01/17/2020 [facility] DATE CREATED AUTHOR AUTHOR'S ORGANIZ ATION 04/10/2020 [facility] DATE CREATED AUTHOR AUTHOR'S ORGANIZ ATION 05/21/2024 [facility] ([place]) DATE CREATED AUTHOR AUTHOR'S ORGANIZ ATION 01/25/2025 [facility] DATE CREATED AUTHOR AUTHOR'S ORGANIZ ATION 03/03/2025 [facility] DATE CREATED AUTHOR AUTHOR'S ORGANIZ ATION 04/04/2025 [facility] DATE CREATED AUTHOR AUTHOR'S ORGANIZ ATION 07/11/2025 [facility] DATE CREATED AUTHOR AUTHOR'S ORGANIZ ATION 08/09/2025 [facility] DATE CREATED AUTHOR AUTHOR'S ORGANIZ ATION 09/06/2025 [facility] Care Team (unrecognized sect ion and content) [...] End: February 13, 2025 Mayte Burch NP, DUTY OFFICER-C Attending Provider Active Start: February 13, 2025 [...] March 10, 2025 End: March 10, 2025 Staff Genetic Counselor Relationship Specialty Start Date End Date Jesus Manuel Freitas DO [address] [place], [place] [address] [id number] PCP - General 02/21/15 Staff Genetic Counselor Relationship Specialty Start Date End Date Jesus Manuel Freitas DO [address] [place], [place] [id number] PCP - General 02/21/15 Staff Genetic Counselor Relationship Specialty Start Date End Date Jesus Manuel Freitas, DO [address] [place] [address] PCP - General 02/21/15 Staff Genetic Counselor Relationship Specialty Start Date End Date Jesus Manuel Freitas, DO [address] [place] [address] PCP - General 02/21/15 Staff Genetic Counselor Relationship Specialty Start Date End Date Jesus Manuel Freitas, DO [address] [place] [address] PCP - General 02/21/15 Staff Genetic Counselor Relationship Specialty Start Date End Date Jesus Manuel Freitas, DO [address] [place] [address] PCP - General 02/21/15 Kailyn Donald, CUSTOMER ADVOCACY MANAGER.FOUNDATION RELATIONS MANAGER [address] [place] [address] Specialty Service Observer Neurology 09/09/22 Staff Genetic Counselor Relationship Specialty Start Date End Date Jesus Manuel Freitas, DO [address] [place] [address] PCP - General 02/21/15 Kailyn Donald, CUSTOMER ADVOCACY MANAGER.FOUNDATION RELATIONS MANAGER [address] [place] [address] Specialty Service Observer Neurology 09/09/22 Staff Genetic Counselor Relationship Specialty Start Date End Date Jesus Manuel Freitas, DO [address] [place] [address] PCP - General 02/21/15 Kailyn Donald, CUSTOMER ADVOCACY MANAGER.FOUNDATION RELATIONS MANAGER [address] [place] [address] Specialty Service Observer Neurology 09/09/22 Gissell Hunt, CUSTOMER ADVOCACY MANAGER.FOUNDATION RELATIONS MANAGER [address] [place] [address] Specialty Service Observer Neurology 12/07/22 Staff Genetic Counselor Relationship Specialty Start Date End Date Jesus Manuel Freitas, DO [address] [place] [address] PCP - General 02/21/15 Kailyn Donald, CUSTOMER ADVOCACY MANAGER.FOUNDATION RELATIONS MANAGER [address] [place] [address] Specialty Service Observer Neurology 09/09/22 Gissell Hunt, CUSTOMER ADVOCACY MANAGER.FOUNDATION RELATIONS MANAGER [address] [place] [address] Specialty Service Observer Neurology 12/07/22 Staff Genetic Counselor Relationship Specialty Start Date End Date Jesus Manuel Freitas, [address] [place] [address] PCP - General 02/21/15 Kailyn Donald, CUSTOMER ADVOCACY MANAGER.FOUNDATION RELATIONS MANAGER [address] [place] [address] Specialty Service Observer Neurology 09/09/22 Gissell Hunt, CUSTOMER ADVOCACY MANAGER.FOUNDATION RELATIONS MANAGER [address] [place] [address] Specialty Service Observer Neurology 12/07/22 Staff Genetic Counselor Relationship Specialty Start Date End Date Jesus Manuel Freitas DO [address] [place] [address] PCP - General 02/21/15 Kailyn Donald, CUSTOMER ADVOCACY MANAGER.FOUNDATION RELATIONS MANAGER [address] [place] [address] Specialty Service Observer Neurology 09/09/22 Gissell Hunt, CUSTOMER ADVOCACY MANAGER.FOUNDATION RELATIONS MANAGER [address] [place] [address] Specialty Service Observer Neurology 12/07/22 Staff Genetic Counselor Relationship Specialty Start Date End Date Jesus Manuel Freitas DO [address] [place] [address] PCP - General 02/21/15 Kailyn Donald, CUSTOMER ADVOCACY MANAGER.FOUNDATION RELATIONS MANAGER [address] [place] [address] Specialty Service Observer Neurology 09/09/22 Gissell Hunt CUSTOMER ADVOCACY MANAGER.FOUNDATION RELATIONS MANAGER [address] [place] [address] Specialty Service Observer Neurology 12/07/22 Staff Genetic Counselor Relationship Specialty Start Date End Date Jesus Manuel Freitas DO [address] [place] [address] PCP - General 02/21/15 Kailyn Donald, CUSTOMER ADVOCACY MANAGER.FOUNDATION RELATIONS MANAGER [address] [place] [address] Specialty Service Observer Neurology 09/09/22 Gissell Hunt, CUSTOMER ADVOCACY MANAGER.FOUNDATION RELATIONS MANAGER [address] [place] [address] Specialty Service Observer Neurology 12/07/22 Staff Genetic Counselor Relationship Specialty Start Date End Date Jesus Manuel Freitas DO [address] [place] [address] PCP - General 02/21/15 Kailyn Donald, CUSTOMER ADVOCACY MANAGER.FOUNDATION RELATIONS MANAGER [address] [place] [address] Specialty Service Observer Neurology 09/09/22 Gissell Hunt CUSTOMER ADVOCACY MANAGER.FOUNDATION RELATIONS MANAGER [address] [place] [address] Specialty Service Observer Neurology 12/07/22 Team Status: Active Member Role [...] Dr. Tony Mayer MD Other Provider Active Staff Genetic Counselor Relationship Specialty Start Date End Date Jesus Manuel Freitas DO [address] [place], [place] [address] PCP - General 02/21/15 Kailyn Donald, CUSTOMER ADVOCACY MANAGER.FOUNDATION RELATIONS MANAGER [address] [place], [place] [id number] Specialty Service Observer Neurology 09/09/22 Gissell Hunt, CUSTOMER ADVOCACY MANAGER.FOUNDATION RELATIONS MANAGER [address] [place], [place] [id number] Specialty Service Observer Neurology 12/07/22 Staff Genetic Counselor Relationship Specialty Start Date End Date Jesus Manuel Freitas DO [address] [place], [place] [id number] PCP - General 02/21/15 Kailyn Donald, CUSTOMER ADVOCACY MANAGER.FOUNDATION RELATIONS MANAGER [address] [place], [place] [id number] Specialty Service Observer Neurology 09/09/22 Gissell Hunt CUSTOMER ADVOCACY MANAGER.FOUNDATION RELATIONS MANAGER [address] [place] [address] Specialty Service Observer Neurology 12/07/22 Team Status: Active Member Role [...] Byers DO Primary Care Provider Active Dr. Jose Jaime , DO Emergency Provider Active Dr. Ben Johnson , DO Admit Provider, Other Provide r Active Dr. Heike Horta MD Attending Provider, Other Prov ider Active Team Status: Active Member Role Status Dates Dr. Adrienne Byers DO Primary Care Provider Active Dr. Shan [...] Care Provider Active Dr. Shan Lockett , Attending Provider Active Dr. Heike Horta MD [...] Provider, At tending Provider, Referring Provider Active Staff Genetic Counselor Relationship Specialty Start Date End Date Fortino Jesus Manuel DO [place] [address] [place] [address] PCP - General 02/21/15 Kailyn Donald, CUSTOMER ADVOCACY MANAGER.FOUNDATION RELATIONS MANAGER [address] [place] [address] Specialty Service Observer Neurology 09/09/22 Gissell Hunt APRN.FOUNDATION RELATIONS MANAGER [address] [place] [address] Specialty Service Observer Neurology 12/07/22 Sherif Ramirez MD [address] [place] [address] Specialty Service Observer Neurology 11/10/23 Staff Genetic Counselor Relationship Specialty Start Date End Date Rick Rodas CUSTOMER ADVOCACY MANAGER - FOUNDATION RELATIONS MANAGER [address] [place] [address] PCP - General Nurse Practitioner 06/16/24 Staff Genetic Counselor Relationship Specialty Start Date End Date Rick Rodas CUSTOMER ADVOCACY MANAGER - FOUNDATION RELATIONS MANAGER [address] [place] [address] PCP - General Nurse Practitioner 06/16/24 Staff Genetic Counselor Relationship Specialty Start Date End Date Rick Rodas APRN - FOUNDATION RELATIONS MANAGER [address] [place] [phone] PCP - General Nurse Practitioner 06/16/24 Staff Genetic Counselor Relationship Specialty Start Date End Date Jesus Manuel Freitas DO [address] [place], [place] [address] PCP - General 02/21/15 Kailyn Donald, CUSTOMER ADVOCACY MANAGER.FOUNDATION RELATIONS MANAGER [address] [place], [place] [id number] Specialty Service Observer Neurology 09/09/22 Gissell Hunt APRN.FOUNDATION RELATIONS MANAGER [address] [place], [place] [phone] Specialty Service Observer Neurology 12/07/22 Sherif Ramirez MD [address] [place] [address] Specialty Service Observer Neurology 11/10/23 Staff Genetic Counselor Relationship Specialty Start Date End Date John Marci [facility] [place] [phone] PCP - General Family Medicine 07/20/24 Staff Genetic Counselor Relationship Specialty Start Date End Date Jesus Manuel Freitas DO [address] [place] [address] PCP - General 02/21/15 Kailyn Donald, CUSTOMER ADVOCACY MANAGER.FOUNDATION RELATIONS MANAGER [address] [place], [place] [id number] Specialty Service Observer Neurology 09/09/22 Gissell Hunt CUSTOMER ADVOCACY MANAGER.FOUNDATION RELATIONS MANAGER [address] [place], [place] [phone] Specialty Service Observer Neurology 12/07/22 Sherif Ramirez MD [address] [place] [address] Specialty Service Observer Neurology 11/10/23 Staff Genetic Counselor Relationship Specialty Start Date End Date Rick Rodas APRN - FOUNDATION RELATIONS MANAGER [address] [place] [address] PCP - General Nurse Practitioner 06/16/24 07/19/24 JohnMarci soto [address] [place] [address] PCP - General Family Medicine 07/20/24 Staff Genetic Counselor Relationship Specialty Start Date End Date Marci Lopez [address] [place] [address] PCP - General Family Medicine 07/20/24 Staff Genetic Counselor Relationship Specialty Start Date End Date Marci Lopez [address] [place] [address] PCP - General Family Medicine 07/20/24 Staff Genetic Counselor Relationship Specialty Start Date End Date Jesus Manuel Freitas DO [address] [place] [address] PCP - General 02/21/15 Kailyn Donald, CUSTOMER ADVOCACY MANAGER.FOUNDATION RELATIONS MANAGER [address] [place] [address] Specialty Service Observer Neurology 09/09/22 Gissell Hunt, CUSTOMER ADVOCACY MANAGER.FOUNDATION RELATIONS MANAGER [address] [place] [address] Specialty Service Observer Neurology 12/07/22 Sherif Ramirez MD [address] [place] [address] Specialty Service Observer Neurology 11/10/23 Staff Genetic Counselor Relationship Specialty Start Date End Date Marci Lopez [place] [address] PCP - General Family Medicine 07/20/24 Staff Genetic Counselor Relationship Specialty Start Date End Date Marci Lopez [address] [place] [address] PCP - General Family Medicine 07/20/24 Staff Genetic Counselor Relationship Specialty Start Date End Date Jesus Manuel Freitas DO [address] [place] [address] PCP - General 02/21/15 Kailyn Donald, CUSTOMER ADVOCACY MANAGER.FOUNDATION RELATIONS MANAGER [address] [place] [address] Specialty Service Observer Neurology 09/09/22 Gissell Hunt, DAYNE.FOUNDATION RELATIONS MANAGER [address] [place] [address] Specialty Service Observer Neurology 12/07/22 Sherif Ramirez MD [address] [place] [address] Specialty Service Observer Neurology 11/10/23 Staff Genetic Counselor Relationship Specialty Start Date End Date Jesus Manuel Freitas DO [address] [place] [address] PCP - General 02/21/15 Kailyn Donald, CUSTOMER ADVOCACY MANAGER.FOUNDATION RELATIONS MANAGER [address] [place] [address] Specialty Service Observer Neurology 09/09/22 Gissell Hunt, CUSTOMER ADVOCACY MANAGER.FOUNDATION RELATIONS MANAGER [address] [place], [place] [phone] Specialty Service Observer Neurology 12/07/22 Sherif Ramirez MD [address] [place] [address] Specialty Service Observer Neurology 11/10/23 Staff Genetic Counselor Relationship Specialty Start Date End Date Marci Lopez [address] [place] [phone] PCP - General Family Medicine 07/20/24 Staff Genetic Counselor Relationship Specialty Start Date End Date Jesus Manuel Freitas DO [address] [place] [address] PCP - General 02/21/15 Kailyn Donald, CUSTOMER ADVOCACY MANAGER.FOUNDATION RELATIONS MANAGER [address] [place] [address] Specialty Service Observer Neurology 09/09/22 Gissell Hunt, CUSTOMER ADVOCACY MANAGER.FOUNDATION RELATIONS MANAGER [address] [place] [address] Specialty Service Observer Neurology 12/07/22 Sherif Ramirez MD [address] [place] [address] Specialty Service Observer Neurology 11/10/23 Staff Genetic Counselor Relationship Specialty Start Date End Date Jesus Manuel Freitas DO [address] [place] [address] PCP - General 02/21/15 Kailyn Donald, CUSTOMER ADVOCACY MANAGER.FOUNDATION RELATIONS MANAGER [address] [place] [address] Specialty Service Observer Neurology 09/09/22 Gissell Hunt, CUSTOMER ADVOCACY MANAGER.FOUNDATION RELATIONS MANAGER [address] [place] [address] Specialty Service Observer Neurology 12/07/22 Sherif Ramirez MD [address] [place] [address] Specialty Service Observer Neurology 11/10/23 Staff Genetic Counselor Relationship Specialty Start Date End Date Jesus Manuel Freitas DO [address] [place] [address] PCP - General 02/21/15 Kailyn Donald, CUSTOMER ADVOCACY MANAGER.FOUNDATION RELATIONS MANAGER [address] [place] [address] Specialty Service Observer Neurology 09/09/22 Gissell Hunt, CUSTOMER ADVOCACY MANAGER.FOUNDATION RELATIONS MANAGER [address] [place] [address] Specialty Service Observer Neurology 12/07/22 Sherif Ramirez MD [address] [place] [address] Specialty Service Observer Neurology 11/10/23 Staff Genetic Counselor Relationship Specialty Start Date End Date Jesus Manuel Freitas DO [address] [place] [address] PCP - General 02/21/15 Kailyn Donald, CUSTOMER ADVOCACY MANAGER.FOUNDATION RELATIONS MANAGER [address] [place], [place] [phone] Specialty Service Observer Neurology 09/09/22 Gissell Hunt, CUSTOMER ADVOCACY MANAGER.FOUNDATION RELATIONS MANAGER [address] [place], [place] [phone] Specialty Service Observer Neurology 12/07/22 Sherif Ramirez MD [address] [place], [place] [phone] Specialty Service Observer Neurology 11/10/23 Staff Genetic Counselor Relationship Specialty [place] [address] [place] [address] PCP - General 02/21/15 Kailyn Donald, CUSTOMER ADVOCACY MANAGER.FOUNDATION RELATIONS MANAGER [address] [place], [place] [id number] Specialty Service Observer Neurology 09/09/22 Gissell Hunt, CUSTOMER ADVOCACY MANAGER.FOUNDATION RELATIONS MANAGER [address] [place] [address] Specialty Service Observer Neurology 12/07/22 Sherif Ramirez MD [address] [place] [address] Specialty Service Observer Neurology 11/10/23 Team Status: Active Member Role [...] March 10, 2025 End: March 10, 2025 Staff Genetic Counselor Relationship Specialty Start Date End Date Jesus Manuel Freitas DO [address] [place] [address] PCP - General 02/21/15 Kailyn Donald, CUSTOMER ADVOCACY MANAGER.FOUNDATION RELATIONS MANAGER [facility] [place] [address] Specialty Service Observer Neurology 09/09/22 Gissell Hunt, CUSTOMER ADVOCACY MANAGER.FOUNDATION RELATIONS MANAGER [address] [place] [address] Specialty Service Observer Neurology 12/07/22 Sherif Ramirez MD [address] [place] [address] Specialty Service Observer Neurology 11/10/23 Team Status: Inactive Member Role [...] End: April 25, 2025 Dr. Marci Lopez , DO Referring Provider Activ e Start: April [...] 2025 End: January 29, 2025 Dr. Danish Tavraez MD Referring Provider Active S tart: January 29, 2025 End: January 29, 2025 Team Status: Inactive Member Role/Relationship Status Dates Dr. Marci Lopez DO Primary Care Provider Ac tive Start: February 13, 2025 End: February 13, 2025 Dr. Marci Lopez DO Referring Provider Activ e Start: February 13, 2025 End: February 13, 2025 Mayte Burch NP, DUTY OFFICER-C Attending Provider Active Start: February 13, 2025 [...] 2025 End: April 20, 2025 Dr. Maximo Oorsco , DO Admit Provider Active Start: April [...] End: February 13, 2025 Mayte Burch NP, DUTY OFFICER-C Attending Provider Active Start: February 13, 2025 End: February 13, 2025 Team Status: Inactive Member Role/Relationship Status Dates Dr. Marci Lopez , DO Primary Care Provider Ac tive Start: February 14, 2025 End: February 14, 2025 Dr. Marci Lopez , DO Referring [...] 2025 End: February 13, 2025 Mayte Burch DUTY OFFICER, DUTY OFFICER-C Attending Provider Active Start: February 13, 2025 [...] May 30, 2025 End: May 30, 2025 Staff Genetic Counselor Relationship Specialty Start Date End Date Marci Lopez [place] [id number] PCP - General Family Medicine 07/20/24 Team [...] Provider Active St art: June 11, 2025 Team Status: Inactive Member Role/Relationship Status [...] Orosco , Attending Provider Active Start: April 19, 2025 [...] Provider Ac tive Start: May 22, 2025 Dr. Angelita Garcia MD Attending Provider Active Start: May 22, 2025 Team Status: Inactive Member [...] End: May 30, 2025 Dr. Marci Lopez , DO Referring Provider Activ e Start: May 30, 2025 End: May 30, 2025 AMRIK Sanford Attending Provider Active Start: May 30, 2025 End: May 30, 2025 Team Status: Inactive Member Role/Relationship Status [...] Provider Active St art: June 11, 2025 Team Status: Active Member Role/Relationship Status Dates Dr. Marci Lopez DO Primary Care Provider Ac tive Start: July 01, 2025 Dr. Bossman Sanders , DO Emergency Provider Active S tart: July 01, 2025 Dr. Jose Royla , DO Admit Provider Active Star t: July 01, 2025 Dr. Jose Royal , DO Attending Provider Active Start: July 01, 2025 Team Status: Active Member Role/Relationship Status Dates Dr. Marci Lopez DO Primary Care Provider Ac tive Start: July 01, 2025 Dr. Bossman Sanders , DO Emergency Provider Active S tart: July 01, 2025 Dr. Jose Royal DO Attending Provider Active Start: July 01, 2025 Team Status: Active Member Role/Relationship Status Dates Dr. Marci Lopez DO Primary Care Provider Ac tive Start: June 07, 2025 Dr. Bossman Sanders DO Emergency Provider Active S tart: June 07, 2025 Dr. Ben Johnson , DO Admit Provider Active S tart: June 07, 2025 Dr. Ben Johnson , DO Other Provider Active S tart: June 07, 2025 Dr. Ganesh Kiran MD Referring Provider Active Start: June 07, 2025 Dr. Ganesh Kiran MD Other Provider Active Sta rt: June 07, 2025 Dr. Shan Lockett DO Attending Provider Active Start: June 07, 2025 Dr. Shan Lockett DO Other Provider Active St art: June 07, 2025 Team Status: Inactive Member Role/Relationship Status Dates Dr. Marci Lopez DO Primary Care Provider Ac tive Start: July 01, 2025 End: July 04, 2025 Dr. Bossman Sanders DO Emergency Provider Active S tart: July 01, 2025 End: July 04, 2025 Dr. Jose Royal DO Admit Provider Active Star t: July 01, 2025 End: July 04, 2025 Dr. Jose Royal DO Other Provider Active Star t: July 01, 2025 End: July 04, 2025 Dr. Camacho Aguilar MD Attending Provider Active Start: July 01, 2025 End: July 04, 2025 Team Status: Active Member Role/Relationship Status Dates Dr. Marci Lopez DO Primary Care Provider Ac tive Start: July 02, 2025 Dr. Bossman Sanders , DO Emergency Provider Active S tart: July 02, 2025 Dr. Jose Royal DO Admit Provider Active Star t: July 02, 2025 Dr. Jose Royal DO Other Provider Active Star t: July 02, 2025 Dr. Camacho Aguilar MD Attending Provider Active Start: July 02, 2025 Dr. Camacho Aguilar MD Other Provider Active Start: July 02, 2025 Team Status: Active Member Role/Relationship Status Dates Dr. Marci Lopez DO Primary Care Provider Ac tive Start: July 03, 2025 Dr. Bossman Sanders DO Emergency Provider Active S tart: July 03, 2025 Dr. Jose Royal DO Admit Provider Active Star t: July 03, 2025 Dr. Jose Royal DO Other Provider Active Star t: July 03, 2025 Dr. Camacho Aguilar MD Attending Provider Active Start: July 03, 2025 Dr. Camacho Aguilar MD Other Provider Active Start: July 03, 2025 Team Status: Active Member Role/Relationship Status Dates Dr. Marci Lopez DO Primary Care Provider Ac tive Start: July 04, 2025 Dr. Bossman Sanders DO Emergency Provider Active S tart: July 04, 2025 Dr. Jose Royal DO Admit Provider Active Star t: July 04, 2025 Dr. Jose Royal DO Other Provider Active Star t: July 04, 2025 Dr. Camacho Aguilar MD Attending Provider Active Start: July 04, 2025 Dr. Camacho Aguilar MD Other Provider Active Start: July 04, 2025 Staff Genetic Counselor Relationship Specialty Start Date End Date Marci [place] [address] PCP - General Family Medicine 06/29/25 Kailyn Donald, CUSTOMER ADVOCACY MANAGER.FOUNDATION RELATIONS MANAGER [address] [place] [address] Specialty Service Observer Neurology 09/09/22 Gissell Hunt, CUSTOMER ADVOCACY MANAGER.FOUNDATION RELATIONS MANAGER [address] [place] [address] Specialty Service Observer Neurology 12/07/22 Sherif Ramirez MD [address] [place] [address] Specialty Service Observer Neurology 11/10/23 Team Status: Inactive Member Role/Relationship Status Dates [...] Provider Ac tive Start: May 22, 2025 Dr. Angelita Garcia MD Attending Provider Active Start: May 22, 2025 Team Status: Inactive Member [...] End: May 29, 2025 Dr. Marci Lopez , DO Referring Provider Activ e Start: May 29, 2025 End: May 29, 2025 Kaykay ROWLEY, PA Attending Provider Active Start: May 29, 2025 End: May 29, 2025 Team Status: Inactive Member Role/Relationship Status Dates Dr. Marci Lopez , DO Primary Care Provider Ac tive Start: May 30, 2025 End: May 30, 2025 Dr. Marci Lopez , DO Referring Provider Activ e Start: May 30, 2025 End: May 30, 2025 AMRIK Sanford Attending Provider Active Start: May 30, 2025 End: May 30, 2025 Team Status: Inactive Member Role/Relationship Status [...] June 07, 2025 Dr. Ganesh Kiran MD Referring Provider Active Start: June 07, 2025 Dr. Ganesh Kiran MD Other Provider Active Sta rt: June 07, 2025 Dr. Shan Lockett , Attending Provider Active Start: June 07, 2025 [...] Provider Active St art: June 11, 2025 Team Status: Inactive Member Role/Relationship Status Dates Dr. Marci Lopez , DO Primary Care Provider Ac tive Start: July 01, 2025 End: July 04, 2025 Dr. Bossman Sanders , DO Emergency Provider Active S tart: July 01, 2025 End: July 04, 2025 Dr. Jose Royal , DO Admit Provider Active Star t: July 01, 2025 End: July 04, 2025 Dr. Jose Royal DO Other Provider Active Star t: July 01, 2025 End: July 04, 2025 Dr. Camacho Aguilar MD Attending Provider Active Start: July 01, 2025 End: July 04, 2025 Team Status: Active Member Role/Relationship Status Dates Dr. Marci Lopez DO Primary Care Provider Ac tive Start: July 01, 2025 Dr. Bossman Sanders DO Emergency Provider Active S tart: July 01, 2025 Dr. Jose Royal DO Attending Provider Active Start: July 01, 2025 Team Status: Active Member Role/Relationship Status Dates Dr. Marci Lopez DO Primary Care Provider Ac tive Start: July 02, 2025 Dr. Bossman Sanders DO Emergency Provider Active S tart: July 02, 2025 Dr. Jose Royal DO Admit Provider Active Star t: July 02, 2025 Dr. Jose Royal DO Other Provider Active Star t: July 02, 2025 Dr. Camacho Aguilar MD Attending Provider Active Start: July 02, 2025 Dr. Camacho Aguilar MD Other Provider Active Start: July 02, 2025 Team Status: Active Member Role/Relationship Status Dates Dr. Marci Lopez DO Primary Care Provider Ac tive Start: July 03, 2025 Dr. Bossman Sanders DO Emergency Provider Active S tart: July 03, 2025 Dr. Jose Royal DO Admit Provider Active Star t: July 03, 2025 Dr. Jose Royal DO Other Provider Active Star t: July 03, 2025 Dr. Camacho Aguilar MD Attending Provider Active Start: July 03, 2025 Dr. Camacho Aguilar MD Other Provider Active Start: July 03, 2025 Team Status: Active Member Role/Relationship Status Dates Dr. Marci Lopez DO Primary Care Provider Ac tive Start: July 04, 2025 Dr. Bossman Sanders DO Emergency Provider Active S tart: July 04, 2025 Dr. Jose Royal DO Admit Provider Active Star t: July 04, 2025 Dr. Jose Royal , DO Other Provider Active Star t: July 04, 2025 Dr. Camacho Aguilar MD Attending Provider Active Start: July 04, 2025 Dr. Camacho Aguilar MD Other Provider Active Start: July 04, 2025 Team Status: Active Member Role/Relationship Status Dates Dr. Marci Lopez DO Primary Care Provider Ac tive Start: July 09, 2025 Mario Marlene SAGE MD Attending Provider Active S tart: July 09, 2025 Team Status: Inactive Member Role/Relationship Status Dates Dr. Marci Lopez DO Primary Care Provider Ac tive Start: July 12, 2025 End: July 12, 2025 Dr. Marci Lopez DO Referring Provider Activ e Start: July 12, 2025 End: July 12, 2025 Dr. Saul Freitas , Attending Provider Active S tart: July 12, 2025 End: July 12, 2025 Team Status: Active Member Role/Relationship Status Dates Dr. Marci Lopez DO Primary Care Provider Ac tive Start: July 16, 2025 Dr. Saul Freitas , Attending Provider Active S tart: July 16, 2025 Dr. Saul Freitas , Referring Provider Active S tart: July 16, 2025 Team Status: Active Member Role/Relationship Status Dates Dr. Marci Lopez DO Primary Care Provider Ac tive Start: July 19, 2025 Dr. Saul Freitas , Attending Provider Active S tart: July 19, 2025 Dr. Saul Freitas , Referring Provider Active S tart: July 19, 2025 Dr. Saul Freitas , Other Provider Active Start : July 19, 2025 Team Status: Inactive Member Role/Relationship Status Dates Dr. Marci Lopez DO Primary Care Provider Ac tive Start: July 20, 2025 End: July 20, 2025 Dr. Marci Lopez DO Referring Provider Activ e Start: July 20, 2025 End: July 20, 2025 AMRIK Sanford Attending Provider Active Start: July 20, 2025 End: July 20, 2025 Team Status: Inactive Member Role/Relationship Status Dates Dr. Marci Lopez DO Primary Care Provider Ac tive Start: July 16, 2025 End: July 16, 2025 Dr. Saul Freitas , Attending Provider Active S tart: July 16, 2025 End: July 16, 2025 Dr. Saul Freitas , DO Referring Provider Active S tart: July 16, 2025 End: July 16, 2025 Team Status: Active Member Role/Relationship Status Dates Dr. Marci Lopez DO Primary Care Provider Ac tive Start: July 25, 2025 Dr. Saul Freitas , Attending Provider Active S tart: July 25, 2025 Dr. Saul Freitas , DO Referring Provider Active S tart: July 25, 2025 Team Status: Inactive Member Role/Relationship Status Dates Dr. Marci Lopez DO Primary Care Provider Ac tive Start: July 26, 2025 End: July 26, 2025 Dr. Marci Lopez DO Referring Provider Activ e Start: July 26, 2025 End: July 26, 2025 Brisa Jennings Attending Provider Active Start: S ep2024 End: July 26, 2025 Team Status: Inactive Member Role/Relationship Status Dates Dr. Marci Lopez DO Primary Care Provider Ac tive Start: July 26, 2025 End: July 26, 2025 Dr. Danish Tavarez MD Attending Provider Active S tart: July 26, 2025 End: July 26, 2025 Team Status: Inactive Member Role/Relationship Status Dates Dr. Marci Lopez DO Primary Care Provider Ac tive Start: July 26, 2025 End: July 26, 2025 Dr. Marci Lopez DO Referring Provider Activ e Start: July 26, 2025 End: July 26, 2025 Brisa Jennings Attending Provider Active Start: S eptember 2024 End: July 26, 2025 Team Status: Inactive Member Role/Relationship Status Dates Dr. Marci Lopez DO Primary Care Provider Ac tive Start: July 30, 2025 End: July 30, 2025 Dr. Danish Tavarez MD Attending Provider Active S tart: July 30, 2025 End: July 30, 2025 Team Status: Inactive Member Role/Relationship Status Dates Dr. Marci Lopez DO Primary Care Provider Ac tive Start: July 25, 2025 End: July 25, 2025 Dr. Saul Freitas DO Attending Provider Active S tart: July 25, 2025 End: July 25, 2025 Dr. Saul Freitas DO Referring Provider Active S tart: July 25, 2025 End: July 25, 2025 Team Status: Inactive Member Role/Relationship Status Dates Dr. Marci Lopez DO Primary Care Provider Active Start: July 232024 End: August 06, 2025 Dr. Marci Lopez DO Referring Provider Active Start: July End: August 06, 2025 Dr. Angelita Garcia MD Attending Provider Active Start: August 06, 2025 End: August 06, 2025 Team Status: Active Member Role/Relationship Status Dates Dr. Marci Lopez DO Primary care physician A ctive Team Status: Inactive Member Role/Relationship Status Dates Dr. Marci Lopez DO Primary care physician A ctive Start: April 19, 2025 End: April 19, 2025 Dr. Danish Tavarez MD Attending physician Active Start: April 19, 2025 End: April 19, 2025 Dr. Danish Tavarez MD Referring Provider Active S tart: April 19, 2025 End: April 19, 2025 Team Status: Inactive Member Role/Relationship Status Dates Dr. Marci Lopez DO Primary care physician Active Start: April 19, 2025 End: April 20, 2025 Dr. Romeo Padron , Emergency Departme nt Physician Active Start: April 19, 2025 End: April 20, 2025 Dr. Maximo Orosco , DO Admitting physician Active Start: April 19 End: April 20, 2025 Dr. Maximo Orosco DO Attending physician Active Start: April 19 End: April 20, 2025 Dr. Maximo Orosco , DO Nurse Practitioner Active Start: April 19 Team Status: Active Member Role/Relationship Status Dates Dr. Marci Lopez DO Primary care physician Active Start: April 20, 2025 Dr. Romeo Padron DO Emergency Departme nt Physician Active Start: April 20, 2025 Dr. Maximo Orosco , DO Admitting physician Active Start: April 20 Dr. Maximo Orosco , DO Attending physician Active Start: April 20 Dr. Maximo Orosco , DO Nurse Practitioner Active Start: April 20 Team Status: Inactive Member Role/Relationship Status Dates Dr. Marci Lopez DO Primary care physician A ctive Start: April 20, 2025 End: May 03, 2025 Dr. Alonso Marte MD Admitting physician Active Start: April 20, 2025 End: May 03, 2025 Dr. Alonso Marte MD Attending physician Active Start: April 20, 2025 End: May 03, 2025 Dr. Alonso Marte MD Referring Provider Active Start: April 20, 2025 End: May 03, 2025 Team Status: Inactive Member Role/Relationship Status Dates Dr. Marci Lopez DO Primary care physician A ctive Start: April 25, 2025 End: April 25, 2025 Dr. Marci Lopez DO Referring Provider Activ e Start: April 25, 2025 End: April 25, 2025 Dr. Shan Lockett DO Attending physician Active Start: April 25, 2025 End: April 25, 2025 Team Status: Active Member Role/Relationship Status Dates Dr. Marci Lopez DO Primary care physician A ctive Start: April 25, 2025 Dr. Marci Lopez DO Referring Provider Activ e Start: April 25, 2025 Dr. Shan Lockett DO Attending physician Active Start: April 25, 2025 Dr. Shan Lockett DO Nurse Practitioner Active Start: April 25, 2025 Team Status: Inactive Member Role/Relationship Status Dates Dr. Marci Lopez DO Primary care physician A ctive Start: May 03, 2025 End: May 03, 2025 Dr. Danish Tavarez MD Attending physician Active Start: May 03, 2025 End: May 03, 2025 Dr. Danish Tavarez MD Referring Provider Active S tart: May 03, 2025 End: May 03, 2025 Team Status: Inactive Member Role/Relationship Status Dates Dr. Marci Lopez DO Primary care physician A ctive Start: May 22, 2025 Dr. Angelita Garcia MD Attending physician Active Start: May 22, 2025 Team Status: Inactive Member Role/Relationship Status Dates Dr. Marci Lopez DO Primary care physician Active Start: May 22, 2025 End: May 22, 2025 Dr. Fazal Heller , DO Attending physician Active Start: May 22, 2025 End: May 22, 2025 Dr. Fazal Heller , DO Emergency Departme nt Physician Active Start: May 22, 2025 End: May 22, 2025 Team Status: Inactive Member Role/Relationship Status Dates Dr. Marci Lopez DO Primary care physician A ctive Start: May 29, 2025 End: May 29, 2025 Dr. Marci Lopez DO Referring Provider Activ e Start: May 29, 2025 End: May 29, 2025 Kaykay ROWLEY, PA Attending physician Active Start: May 29, 2025 End: May 29, 2025 Team Status: Inactive Member Role/Relationship Status Dates Dr. Marci Lopez DO Primary care physician A ctive Start: May 30, 2025 End: May 30, 2025 Dr. Marci Lopez DO Referring Provider Activ e Start: May 30, 2025 End: May 30, 2025 AMRIK Sanford Attending physician Active Start: May 30, 2025 End: May 30, 2025 Team Status: Inactive Member Role/Relationship Status Dates Dr. Marci Lopez DO Primary care physician Active Start: June 02, 2025 End: June 11, 2025 Dr. Bossman Sanders , DO Emergency Departmen t Physician Active Start: June 02, 2025 End: June 11, 2025 Dr. Ben Johnson , DO Admitting physician Active Start: June 02, 2025 End: June 11, 2025 Dr. Ben Johnson , DO Nurse Practitioner Active Start: June 02, 2025 End: June 11, 2025 Dr. Ganesh Kiran MD Attending physician Active Start: June 02, 2025 End: June 11, 2025 Dr. Shan Lockett , DO Nurse Practitioner Active Start: June 02, 2025 End: June 11, 2025 Team Status: Active Member Role/Relationship Status Dates Dr. Marci Lopez , DO Primary care physician Active Start: June 02, 2025 Dr. Bossman Sanders , DO Emergency Departmen t Physician Active Start: June 02, 2025 Dr. Ben Johnson , DO Admitting physician Active Start: June 02, 2025 Dr. Ben Johnson , DO Attending physician Active Start: June 02, 2025 Dr. Ben Johnson , DO Nurse Practitioner Active Start: June 02, 2025 Team Status: Active Member Role/Relationship Status Dates Dr. Marci Lopez , DO Primary care physician Active Start: June 03, 2025 Dr. Bossman Sanders , DO Emergency Departmen t Physician Active Start: June 03, 2025 Dr. Ben Johnson , DO Admitting physician Active Start: June 03, 2025 Dr. Ben Johnson , DO Attending physician Active Start: June 03, 2025 Dr. Ben Johnson , DO Nurse Practitioner Active Start: June 03, 2025 Team Status: Active Member Role/Relationship Status Dates Dr. Marci Lopez DO Primary care physician Active Start: June 04, 2025 Dr. Bossman Sanders , DO Emergency Departmen t Physician Active Start: June 04, 2025 Dr. Ben Johnson , DO Admitting physician Active Start: June 04, 2025 Dr. Ben Johnson , DO Attending physician Active Start: June 04, 2025 Dr. Ben Johnson , DO Nurse Practitioner Active Start: June 04, 2025 Team Status: Active Member Role/Relationship Status Dates Dr. Marci Lopez , DO Primary care physician Active Start: June 05, 2025 Dr. Bossman Sanders , DO Emergency Departmen t Physician Active Start: June 05, 2025 Dr. Ben Johnson , Admitting physician Active Start: June 05, 2025 Dr. Ben Johnson , DO Attending physician Active Start: June 05, 2025 Dr. Ben Johnson , DO Nurse Practitioner Active Start: June 05, 2025 Team Status: Active Member Role/Relationship Status Dates Dr. Marci Lopez DO Primary care physician Active Start: June 06, 2025 Dr. Bossman Sanders , DO Emergency Departmen t Physician Active Start: June 06, 2025 Dr. Ben Johnson , Admitting physician Active Start: June 06, 2025 Dr. Ben Johnson , DO Nurse Practitioner Active Start: June 06, 2025 Dr. Ganesh Kiran MD Attending physician Active Start: June 06, 2025 Dr. Ganesh Kiran MD Nurse Practitioner Active Start: June 06, 2025 Team Status: Active Member Role/Relationship Status Dates Dr. Marci Lopez , DO Primary care physician Active Start: June 07, 2025 Dr. Bossman Sanders , DO Emergency Departmen t Physician Active Start: June 07, 2025 Dr. Ben Johnson DO Admitting physician Active Start: June 07, 2025 Dr. Ben Johnson DO Nurse Practitioner Active Start: June 07, 2025 Dr. Ganesh Kiran MD Referring Provider Active Start: June 07, 2025 Dr. Ganesh Kiran MD Nurse Practitioner Active Start: June 07, 2025 Dr. Shan Lockett DO Attending physician Active Start: June 07, 2025 Dr. Shan Lockett , Nurse Practitioner Active Start: June 07, 2025 Team Status: Active Member Role/Relationship Status Dates Dr. Marci Lopez DO Primary care physician Active Start: June 07, 2025 Dr. Bossman Sanders , DO Emergency Departmen t Physician Active Start: June 07, 2025 Dr. Ben Johnson DO Admitting physician Active Start: June 07, 2025 Dr. Ben Johnson DO Nurse Practitioner Active Start: June 07, 2025 Dr. Ganesh Kiran MD Attending physician Active Start: June 07, 2025 Dr. Ganesh Kiran MD Nurse Practitioner Active Start: June 07, 2025 Dr. Shan Lockett DO Nurse Practitioner Active Start: June 07, 2025 Team Status: Active Member Role/Relationship Status Dates Dr. Marci Lopez DO Primary care physician Active Start: June 08, 2025 Dr. Bossman Sanders , DO Emergency Departmen t Physician Active Start: June 08, 2025 Dr. Ben Johnson DO Admitting physician Active Start: June 08, 2025 Dr. Ben Tereletsky , DO Nurse Practitioner Active Start: June 08, 2025 Dr. Ganesh Kiran MD Attending physician Active Start: June 08, 2025 Dr. Ganesh Kiran MD Nurse Practitioner Active Start: June 08, 2025 Dr. Shan Lockett DO Nurse Practitioner Active Start: June 08, 2025 Team Status: Active Member Role/Relationship Status Dates Dr. Marci Lopez DO Primary care physician Active Start: June 09, 2025 Dr. Bossman Sanders , DO Emergency Departmen t Physician Active Start: June 09, 2025 Dr. Ben Johnson DO Admitting physician Active Start: June 09, 2025 Dr. Ben Johnson , Nurse Practitioner Active Start: June 09, 2025 Dr. Ganesh Kiran MD Attending physician Active Start: June 09, 2025 Dr. Ganesh Kiran MD Nurse Practitioner Active Start: June 09, 2025 Dr. Shan Lockett DO Nurse Practitioner Active Start: June 09, 2025 Team Status: Active Member Role/Relationship Status Dates Dr. Marci Lopez DO Primary care physician Active Start: June 10, 2025 Dr. Bossman Sanders DO Emergency Departmen t Physician Active Start: June 10, 2025 Dr. Ben Johnson DO Admitting physician Active Start: June 10, 2025 Dr. Ben Johnson DO Nurse Practitioner Active Start: June 10, 2025 Dr. Ganesh Kiran MD Attending physician Active Start: June 10, 2025 Dr. Ganesh Kiran MD Nurse Practitioner Active Start: June 10, 2025 Dr. Shan Lockett DO Nurse Practitioner Active Start: June 10, 2025 Team Status: Active Member Role/Relationship Status Dates Dr. Marci Lopez DO Primary care physician Active Start: June 11, 2025 Dr. Bossman Sanders DO Emergency Departmen t Physician Active Start: June 11, 2025 Dr. Ben Johnson DO Admitting physician Active Start: June 11, 2025 Dr. Ben Johnson DO Nurse Practitioner Active Start: June 11, 2025 Dr. Ganesh Kiran MD Attending physician Active Start: June 11, 2025 Dr. Ganesh Kiran MD Nurse Practitioner Active Start: June 11, 2025 Dr. Shan Friend , DO Nurse Practitioner Active Start: June 11, 2025 Team Status: Inactive Member Role/Relationship Status Dates Dr. Marci Lopez DO Primary care physician Active Start: June End: July 04, 2025 Dr. Bossman Sanders DO Emergency Departmen t Physician Active Start: July 01, 2025 End: July 04, 2025 Dr. Jose Royal DO Admitting physician Active Start: July 01, 2025 End: July 04, 2025 Dr. Jose Royal DO Nurse Practitioner Active Start: July 01, 2025 End: July 04, 2025 Dr. Camacho Aguilar MD Attending physician Active Start: July 01, 2025 End: July 04, 2025 Team Status: Active Member Role/Relationship Status Dates Dr. Marci Lopez DO Primary care physician Active Start: June Dr. Bossman Sanders DO Emergency Departmen t Physician Active Start: July 01, 2025 Dr. Jose Royal DO Attending physician Active Start: July 01, 2025 Team Status: Active Member Role/Relationship Status Dates Dr. Marci Lopez DO Primary care physician Active Start: June Dr. Bossman Sanders DO Emergency Departmen t Physician Active Start: July 02, 2025 Dr. Jose Royal DO Admitting physician Active Start: July 02, 2025 Dr. Jose Royal DO Nurse Practitioner Active Start: July 02, 2025 Dr. Camacho Aguilar MD Attending physician Active Start: July 02, 2025 Dr. Camacho Aguilar MD Nurse Practitioner Active Start: July 02, 2025 Team Status: Active Member Role/Relationship Status Dates Dr. Marci Lopez DO Primary care physician Active Start: June Dr. Bossman Sanders DO Emergency Departmen t Physician Active Start: July 03, 2025 Dr. Jose Royal DO Admitting physician Active Start: July 03, 2025 Dr. Jose Royal DO Nurse Practitioner Active Start: July 03, 2025 Dr. Camacho Aguilar MD Attending physician Active Start: July 03, 2025 Dr. Camacho Aguilar MD Nurse Practitioner Active Start: July 03, 2025 Team Status: Active Member Role/Relationship Status Dates Dr. Marci Lopez DO Primary care physician Active Start: June Dr. Bossman Sanders DO Emergency Departmen t Physician Active Start: July 04, 2025 Dr. Jose Royal DO Admitting physician Active Start: July 04, 2025 Dr. Jose Royal DO Nurse Practitioner Active Start: July 04, 2025 Dr. Camacho Aguilar MD Attending physician Active Start: July 04, 2025 Dr. Camacho Aguilar MD Nurse Practitioner Active Start: July 04, 2025 Team Status: Active Member Role/Relationship Status Dates Dr. Marci Lopez DO Primary care physician A ctive Start: July 09, 2025 Mario Marlene SAGE MD Attending physician Active Start: July 09, 2025 Team Status: Inactive Member Role/Relationship Status Dates Dr. Marci Lopez DO Primary care physician A ctive Start: July 12, 2025 End: July 12, 2025 Dr. Marci Lopez DO Referring Provider Activ e Start: July 12, 2025 End: July 12, 2025 Dr. Saul Freitas DO Attending physician Active Start: July 12, 2025 End: July 12, 2025 Team Status: Inactive Member Role/Relationship Status Dates Dr. Marci Lopez DO Primary care physician A ctive Start: July 16, 2025 End: July 16, 2025 Dr. Saul Freitas DO Attending physician Active Start: July 16, 2025 End: July 16, 2025 Dr. Saul Freitas DO Referring Provider Active S tart: July 16, 2025 End: July 16, 2025 Team Status: Active Member Role/Relationship Status Dates Dr. Marci Lopez DO Primary care physician A ctive Start: July 19, 2025 Dr. Saul Freitas DO Attending physician Active Start: July 19, 2025 Dr. Saul Freitas DO Referring Provider Active S tart: July 19, 2025 Dr. Saul Freitas DO Nurse Practitioner Active S tart: July 19, 2025 Team Status: Inactive Member Role/Relationship Status Dates Dr. Marci Lopez DO Primary care physician A ctive Start: July 20, 2025 End: July 20, 2025 Dr. Marci Lopez DO Referring Provider Activ e Start: July 20, 2025 End: July 20, 2025 AMRIK Sanford Attending physician Active Start: July 20, 2025 End: July 20, 2025 Team Status: Inactive Member Role/Relationship Status Dates Dr. Marci Lopez DO Primary care physician Active Start: July 25, 2025 End: July 25, 2025 Dr. Saul Freitas DO Attending physician Active Start: July 25, 2025 End: July 25, 2025 Dr. Saul Freitas DO Referring Provider Active S tart: July 25, 2025 End: July 25, 2025 Team Status: Inactive Member Role/Relationship Status Dates Dr. Marci Lopez DO Primary care physician Active Start: July 26, 2025 End: July 26, 2025 Dr. Danish Tavarez MD Attending physician Active Start: July 26, 2025 End: July 26, 2025 Team Status: Inactive Member Role/Relationship Status Dates Dr. Marci Lopez DO Primary care physician Active Start: July 26, 2025 End: July 26, 2025 Dr. Marci Lopez DO Referring Provider Active Start: July End: July 26, 2025 Brisa Jennings Attending physician Active Start: July 26, 2025 End: July 26, 2025 Team Status: Inactive Member Role/Relationship Status Dates Dr. Marci Lopez DO Primary care physician Active Start: July 30, 2025 End: July 30, 2025 Dr. Danish Tavarez MD Attending physician Active Start: July 30, 2025 End: July 30, 2025 Team Status: Inactive Member Role/Relationship Status Dates Dr. Marci Lopez DO Primary care physician Active Start: August 06, 2025 End: August 06, 2025 Dr. Danish Tavarez MD Attending physician Active Start: August 06, 2025 End: August 06, 2025 Team Status: Inactive Member Role/Relationship Status Dates Dr. Marci Lopez DO Primary care physician Active Start: August 06, 2025 End: August 06, 2025 Dr. Marci Lopez DO Referring Provider Active Start: July End: August 06, 2025 Dr. Angelita Garcia MD Attending physician Active Start: August 06, 2025 End: August 06, 2025 Team Status: Inactive Member Role/Relationship Status Dates Dr. Marci Lopez DO Primary care physician A ctive Start: April 20, 2025 End: May 03, 2025 Dr. Alonso Marte MD Admitting physician Active Start: April 20, 2025 End: May 03, 2025 Dr. Alonso Marte MD Attending physician Active Start: April 20, 2025 End: May 03, 2025 Dr. Alonso Marte MD Referring Provider Active Start: April 20, 2025 End: May 03, 2025 Team Status: Inactive Member Role/Relationship Status Dates Dr. Marci Lopez DO Primary care physician A ctive Start: May 03, 2025 End: May 03, 2025 Dr. Danish Tavarez MD Attending physician Active Start: May 03, 2025 End: May 03, 2025 Dr. Danish Tavarez MD Referring Provider Active S tart: May 03, 2025 End: May 03, 2025 Team Status: Inactive Member Role/Relationship Status Dates Dr. Marci Lopez DO Primary care physician A ctive Start: May 22, 2025 Dr. Angelita Garcia MD Attending physician Active Start: May 22, 2025 Team Status: Inactive Member Role/Relationship Status Dates Dr. Marci Loepz DO Primary care physician Active Start: May 22, 2025 End: May 22, 2025 Dr. Fazal Heller DO Attending physician Active Start: May 22, 2025 End: May 22, 2025 Dr. Fazal Heller DO Emergency Departme nt Physician Active Start: May 22, 2025 End: May 22, 2025 Team Status: Inactive Member Role/Relationship Status Dates Dr. Marci Lopez DO Primary care physician A ctive Start: May 29, 2025 End: May 29, 2025 Dr. Marci Lopez DO Referring Provider Activ e Start: May 29, 2025 End: May 29, 2025 Kaykay ROWLEY, PA Attending physician Active Start: May 29, 2025 End: May 29, 2025 Team Status: Inactive Member Role/Relationship Status Dates Dr. Marci Lopez DO Primary care physician A ctive Start: May 30, 2025 End: May 30, 2025 Dr. Marci Lopez DO Referring Provider Activ e Start: May 30, 2025 End: May 30, 2025 AMRIK Sanford Attending physician Active Start: May 30, 2025 End: May 30, 2025 Team Status: Inactive Member Role/Relationship Status Dates Dr. Marci Lopez DO Primary care physician Active Start: June 02, 2025 End: June 11, 2025 Dr. Bossman Sanders , DO Emergency Departmen t Physician Active Start: June 02, 2025 End: June 11, 2025 Dr. Ben Johnson , Admitting physician Active Start: June 02, 2025 End: June 11, 2025 Dr. Ben Johnson , DO Nurse Practitioner Active Start: June 02, 2025 End: June 11, 2025 Dr. Ganesh Kiran MD Attending physician Active Start: June 02, 2025 End: June 11, 2025 Dr. Shan Lockett , DO Nurse Practitioner Active Start: June 02, 2025 End: June 11, 2025 Team Status: Active Member Role/Relationship Status Dates Dr. Marci Lopez DO Primary care physician Active Start: June 02, 2025 Dr. Bossman Sanders , DO Emergency Departmen t Physician Active Start: June 02, 2025 Dr. Ben Johnson DO Admitting physician Active Start: June 02, 2025 Dr. Ben Johnson DO Attending physician Active Start: June 02, 2025 Dr. Ben Johnson , Nurse Practitioner Active Start: June 02, 2025 Team Status: Active Member Role/Relationship Status Dates Dr. Marci Lopez DO Primary care physician Active Start: June 03, 2025 Dr. Bossman Sanders , DO Emergency Departmen t Physician Active Start: June 03, 2025 Dr. Ben Tereletsky , DO Admitting physician Active Start: June 03, 2025 Dr. Ben Johnson , DO Attending physician Active Start: June 03, 2025 Dr. Ben Johnson , DO Nurse Practitioner Active Start: June 03, 2025 Team Status: Active Member Role/Relationship Status Dates Dr. Marci Lopez DO Primary care physician Active Start: June 04, 2025 Dr. Bossman Sanders , DO Emergency Departmen t Physician Active Start: June 04, 2025 Dr. Ben Johnson , DO Admitting physician Active Start: June 04, 2025 Dr. Ben Johnson , DO Attending physician Active Start: June 04, 2025 Dr. Ben Johnson , DO Nurse Practitioner Active Start: June 04, 2025 Team Status: Active Member Role/Relationship Status Dates Dr. Marci Lopez , DO Primary care physician Active Start: June 05, 2025 Dr. Bossman Sanders , DO Emergency Departmen t Physician Active Start: June 05, 2025 Dr. Ben Johnson , Admitting physician Active Start: June 05, 2025 Dr. Ben Johnson , DO Attending physician Active Start: June 05, 2025 Dr. Ben Johnson , DO Nurse Practitioner Active Start: June 05, 2025 Team Status: Active Member Role/Relationship Status Dates Dr. Marci Lopez , DO Primary care physician Active Start: June 06, 2025 Dr. Bossman Sanders , DO Emergency Departmen t Physician Active Start: June 06, 2025 Dr. Ben Johnson DO Admitting physician Active Start: June 06, 2025 Dr. Ben Johnson , Nurse Practitioner Active Start: June 06, 2025 Dr. Ganesh Kiran MD Attending physician Active Start: June 06, 2025 Dr. Ganesh Kiran MD Nurse Practitioner Active Start: June 06, 2025 Team Status: Active Member Role/Relationship Status Dates Dr. Marci Lopez , Primary care physician Active Start: June 07, 2025 Dr. Bossman Sanders , DO Emergency Departmen t Physician Active Start: June 07, 2025 Dr. Ben Johnson , Admitting physician Active Start: June 07, 2025 Dr. Ben Johnson , DO Nurse Practitioner Active Start: June 07, 2025 Dr. Ganesh Kiran MD Referring Provider Active Start: June 07, 2025 Dr. Ganesh Kiran MD Nurse Practitioner Active Start: June 07, 2025 Dr. Shan Lockett DO Attending physician Active Start: June 07, 2025 Dr. Shan Lockett DO Nurse Practitioner Active Start: June 07, 2025 Team Status: Active Member Role/Relationship Status Dates Dr. Marci Lopez DO Primary care physician Active Start: June 07, 2025 Dr. Bossman Sandres , DO Emergency Departmen t Physician Active Start: June 07, 2025 Dr. Ben Johnson DO Admitting physician Active Start: June 07, 2025 Dr. Ben Johnson DO Nurse Practitioner Active Start: June 07, 2025 Dr. Ganesh Kiran MD Attending physician Active Start: June 07, 2025 Dr. Ganesh Kiran MD Nurse Practitioner Active Start: June 07, 2025 Dr. Shan Lockett DO Nurse Practitioner Active Start: June 07, 2025 Team Status: Active Member Role/Relationship Status Dates Dr. Marci Lopez DO Primary care physician Active Start: June 08, 2025 Dr. Bossman Sanders , DO Emergency Departmen t Physician Active Start: June 08, 2025 Dr. Ben Johnson DO Admitting physician Active Start: June 08, 2025 Dr. Ben Johnson DO Nurse Practitioner Active Start: June 08, 2025 Dr. Ganesh Kiran MD Attending physician Active Start: June 08, 2025 Dr. Ganesh Kiran MD Nurse Practitioner Active Start: June 08, 2025 Dr. Shan Lockett DO Nurse Practitioner Active Start: June 08, 2025 Team Status: Active Member Role/Relationship Status Dates Dr. Marci Lopez DO Primary care physician Active Start: June 09, 2025 Dr. Bossman Sanders , DO Emergency Departmen t Physician Active Start: June 09, 2025 Dr. Ben Johnson DO Admitting physician Active Start: June 09, 2025 Dr. Ben Johnson DO Nurse Practitioner Active Start: June 09, 2025 Dr. Ganesh Kiran MD Attending physician Active Start: June 09, 2025 Dr. Ganesh Kiran MD Nurse Practitioner Active Start: June 09, 2025 Dr. Shan Lockett DO Nurse Practitioner Active Start: June 09, 2025 Team Status: Active Member Role/Relationship Status Dates Dr. Marci Lopez DO Primary care physician Active Start: June 10, 2025 Dr. Bossman Sanders DO Emergency Departmen t Physician Active Start: June 10, 2025 Dr. Ben Johnson DO Admitting physician Active Start: June 10, 2025 Dr. Ben Johnson DO Nurse Practitioner Active Start: June 10, 2025 Dr. Ganesh Kiran MD Attending physician Active Start: June 10, 2025 Dr. Ganesh Kiran MD Nurse Practitioner Active Start: June 10, 2025 Dr. Shan Lockett DO Nurse Practitioner Active Start: June 10, 2025 Team Status: Active Member Role/Relationship Status Dates Dr. Marci Lopez DO Primary care physician Active Start: June 11, 2025 Dr. Bossman Sanders DO Emergency Departmen t Physician Active Start: June 11, 2025 Dr. Ben Johnson DO Admitting physician Active Start: June 11, 2025 Dr. Ben Johnson DO Nurse Practitioner Active Start: June 11, 2025 Dr. Ganesh Kiran MD Attending physician Active Start: June 11, 2025 Dr. Ganesh Kiran MD Nurse Practitioner Active Start: June 11, 2025 Dr. Shan Lockett DO Nurse Practitioner Active Start: June 11, 2025 Team Status: Inactive Member Role/Relationship Status Dates Dr. Marci Lopez DO Primary care physician Active Start: June End: July 04, 2025 Dr. Bossman Sanders DO Emergency Departmen t Physician Active Start: July 01, 2025 End: July 04, 2025 Dr. Jose Royal DO Admitting physician Active Start: July 01, 2025 End: July 04, 2025 Dr. Jose Royal DO Nurse Practitioner Active Start: July 01, 2025 End: July 04, 2025 Dr. Camacho Aguilar MD Attending physician Active Start: July 01, 2025 End: July 04, 2025 Team Status: Active Member Role/Relationship Status Dates Dr. Marci Lopez DO Primary care physician Active Start: June Dr. Bossman Sanders DO Emergency Departmen t Physician Active Start: July 01, 2025 Dr. Jose Royal DO Attending physician Active Start: July 01, 2025 Team Status: Active Member Role/Relationship Status Dates Dr. Mraci Lopez DO Primary care physician Active Start: June Dr. Bossman Sanders DO Emergency Departmen t Physician Active Start: July 02, 2025 Dr. Jose Royal DO Admitting physician Active Start: July 02, 2025 Dr. Jose Royal DO Nurse Practitioner Active Start: July 02, 2025 Dr. Camacho Aguilar MD Attending physician Active Start: July 02, 2025 Dr. Camacho Aguilar MD Nurse Practitioner Active Start: July 02, 2025 Team Status: Active Member Role/Relationship Status Dates Dr. Marci Lopez DO Primary care physician Active Start: June Dr. Bossman Sanders DO Emergency Departmen t Physician Active Start: July 03, 2025 Dr. Jose Royal DO Admitting physician Active Start: July 03, 2025 Dr. Jose Royal DO Nurse Practitioner Active Start: July 03, 2025 Dr. Camacho Aguilar MD Attending physician Active Start: July 03, 2025 Dr. Camacho Aguilar MD Nurse Practitioner Active Start: July 03, 2025 Team Status: Active Member Role/Relationship Status Dates Dr. Marci Lopez DO Primary care physician Active Start: June Dr. Bossman Sanders DO Emergency Departmen t Physician Active Start: July 04, 2025 Dr. Jose Royal DO Admitting physician Active Start: July 04, 2025 Dr. Jose Royal DO Nurse Practitioner Active Start: July 04, 2025 Dr. Camacho Aguilar MD Attending physician Active Start: July 04, 2025 Dr. Camacho Aguilar MD Nurse Practitioner Active Start: July 04, 2025 Team Status: Active Member Role/Relationship Status Dates Dr. Marci Lopez DO Primary care physician A ctive Start: July 09, 2025 Mario Marlene SAGE MD Attending physician Active Start: July 09, 2025 Team Status: Inactive Member Role/Relationship Status Dates Dr. Marci Lopez DO Primary care physician A ctive Start: July 12, 2025 End: July 12, 2025 Dr. Marci Lopez DO Referring Provider Activ e Start: July 12, 2025 End: July 12, 2025 Dr. Saul Freitas DO Attending physician Active Start: July 12, 2025 End: July 12, 2025 Team Status: Inactive Member Role/Relationship Status Dates Dr. Marci Lopez DO Primary care physician A ctive Start: July 16, 2025 End: July 16, 2025 Dr. Saul Freitas DO Attending physician Active Start: July 16, 2025 End: July 16, 2025 Dr. Saul Freitas DO Referring Provider Active S tart: July 16, 2025 End: July 16, 2025 Team Status: Active Member Role/Relationship Status Dates Dr. Marci Lopez DO Primary care physician A ctive Start: July 19, 2025 Dr. Saul Freitas DO Attending physician Active Start: July 19, 2025 Dr. Saul Freitas DO Referring Provider Active S tart: July 19, 2025 Dr. Saul Freitas DO Nurse Practitioner Active S tart: July 19, 2025 Team Status: Inactive Member Role/Relationship Status Dates Dr. Marci Lopez DO Primary care physician A ctive Start: July 20, 2025 End: July 20, 2025 Dr. Marci Lopez DO Referring Provider Activ e Start: July 20, 2025 End: July 20, 2025 AMRIK Sanford Attending physician Active Start: July 20, 2025 End: July 20, 2025 Team Status: Inactive Member Role/Relationship Status Dates Dr. Marci Lopez DO Primary care physician Active Start: July 25, 2025 End: July 25, 2025 Dr. Saul Freitas DO Attending physician Active Start: July 25, 2025 End: July 25, 2025 Dr. Saul Freitas DO Referring Provider Active S tart: July 25, 2025 End: July 25, 2025 Team Status: Inactive Member Role/Relationship Status Dates Dr. Marci Lopez DO Primary care physician Active Start: July 26, 2025 End: July 26, 2025 Dr. Danish Tavarez MD Attending physician Active Start: July 26, 2025 End: July 26, 2025 Team Status: Inactive Member Role/Relationship Status Dates Dr. Marci Lopez DO Primary care physician Active Start: July 26, 2025 End: July 26, 2025 Dr. Danish Tavarez MD Attending physician Active Start: July 26, 2025 End: July 26, 2025 Dr. Danish Tavarez MD Referring Provider Active S tart: July 26, 2025 End: July 26, 2025 Team Status: Inactive Member Role/Relationship Status Dates Dr. Marci Lopez DO Primary care physician Active Start: July 30, 2025 End: July 30, 2025 Dr. Danish Tavarez MD Attending physician Active Start: July 30, 2025 End: July 30, 2025 Dr. Danish Tavarez MD Referring Provider Active S tart: July 30, 2025 End: July 30, 2025 Team Status: Inactive Member Role/Relationship Status Dates Dr. Marci Lopez DO Primary care physician Active Start: August 06, 2025 End: August 06, 2025 Dr. Danish Tavarez MD Attending physician Active Start: August 06, 2025 End: August 06, 2025 Dr. Danish Tavarez MD Referring Provider Active S tart: August 06, 2025 End: August 06, 2025 Team Status: Inactive Member Role/Relationship Status Dates Dr. Marci Lopez DO Primary care physician Active Start: August 06, 2025 End: August 06, 2025 Dr. Marci Lopez DO Referring Provider Active Start: July End: August 06, 2025 Dr. Angelita Garcia MD Attending physician Active Start: August 06, 2025 End: August 06, 2025 Team Status: Active Member Role/Relationship Status Dates Dr. Marci Lopez DO Primary care physician Active Start: August 14, 2025 Dr. Angelita Garcia MD Attending physician Active Start: August 14, 2025 Team Status: Inactive Member Role/Relationship Status Dates Dr. Marci Lopez DO Primary care physician A ctive Start: August 29, 2025 End: August 29, 2025 Dr. Marci Lopez DO Referring Provider Activ e Start: August 29, 2025 End: August 29, 2025 AMRIK Sanford Attending physician Active Start: August 29, 2025 End: August 29, 2025 Staff Genetic Counselor Relationship Specialty Start Date End Date Marci Lopez [address] [place] [address] PCP - General Family Medicine 07/20/24 Source Comments (unrecognize d section and content) In the event this informatio n is protected by the Federal Confidentiality of Alcohol and Drug Abuse Patient Records regulations: The Federal rules restrict any use of the information to criminally investigate or prosecute any alcohol or drug abuse patient.[facility] the event this information is protected by the Federal Confidentiality of Alcohol and Drug Abuse Patient Records regulations: The Federal rules restrict any use of the information to criminally investigate or prosecute any alcohol or drug abuse patient.[facility] CenterIn the event this information is protected by the Federal Confidentiality of Alcohol and Drug Abuse Patient Records regulations: The Federal rules restrict any use of the information to criminally investigate or prosecute any alcohol or drug abuse patient.[facility] the event this information is protected by the Federal Confidentiality of Alcohol and Drug Abuse Patient Records regulations: The Federal rules restrict any use of the information to criminally investigate or prosecute any alcohol or drug abuse patient.[facility] the event this information is protected by the Federal Confidentiality of Alcohol and Drug Abuse Patient Records regulations: The Federal rules restrict any use of the information to criminally investigate or prosecute any alcohol or drug abuse patient.[facility] CenterIn the event this information is protected by the Federal Confidentiality of Alcohol and Drug Abuse Patient Records regulations: The Federal rules restrict any use of the information to criminally investigate or prosecute any alcohol or drug abuse patient.[facility] CenterIn the event this information is protected by the Federal Confidentiality of Alcohol and Drug Abuse Patient Records regulations: The Federal rules restrict any use of the information to criminally investigate or prosecute any alcohol or drug abuse patient.[facility] Center[facility] the event this information is protected by the Federal Confidentiality of Alcohol and Drug Abuse Patient Records regulations: The Federal rules restrict any use of the information to criminally investigate or prosecute any alcohol or drug abuse patient.[facility] CenterIn the event this information is protected by the Federal Confidentiality of Alcohol and Drug Abuse Patient Records regulations: The Federal rules restrict any use of the information to criminally investigate or prosecute any alcohol or drug abuse patient.[facility] CenterIn the event this information is protected by the Federal Confidentiality of Alcohol and Drug Abuse Patient Records regulations: The Federal rules restrict any use of the information to criminally investigate or prosecute any alcohol or drug abuse patient.[facility] CenterIn the event this information is protected by the Federal Confidentiality of Alcohol and Drug Abuse Patient Records regulations: The Federal rules restrict any use of the information to criminally investigate or prosecute any alcohol or drug abuse patient.[facility] CenterIn the event this information is protected by the Federal Confidentiality of Alcohol and Drug Abuse Patient Records regulations: The Federal rules restrict any use of the information to criminally investigate or prosecute any alcohol or drug abuse patient.[facility] CenterIn the event this information is protected by the Federal Confidentiality of Alcohol and Drug Abuse Patient Records regulations: The Federal rules restrict any use of the information to criminally investigate or prosecute any alcohol or drug abuse patient.[facility] CenterIn the event this information is protected by the Federal Confidentiality of Alcohol and Drug Abuse Patient Records regulations: The Federal rules restrict any use of the information to criminally investigate or prosecute any alcohol or drug abuse patient.[facility] CenterIn the event this information is protected by the Federal Confidentiality of Alcohol and Drug Abuse Patient Records regulations: The Federal rules restrict any use of the information to criminally investigate or prosecute any alcohol or drug abuse patient.[facility] CenterIn the event this information is protected by the Federal Confidentiality of Alcohol and Drug Abuse Patient Records regulations: The Federal rules restrict any use of the information to criminally investigate or prosecute any alcohol or drug abuse patient.[facility] CenterIn the event this information is protected by the Federal Confidentiality of Alcohol and Drug Abuse Patient Records regulations: The Federal rules restrict any use of the information to criminally investigate or prosecute any alcohol or drug abuse patient.[facility] CenterIn the event this information is protected by the Federal Confidentiality of Alcohol and Drug Abuse Patient Records regulations: The Federal rules restrict any use of the information to criminally investigate or prosecute any alcohol or drug abuse patient.[facility] CenterIn the event this information is protected by the Federal Confidentiality of Alcohol and Drug Abuse Patient Records regulations: The Federal rules restrict any use of the information to criminally investigate or prosecute any alcohol or drug abuse patient.[facility] CenterIn the event this information is protected by the Federal Confidentiality of Alcohol and Drug Abuse Patient Records regulations: The Federal rules restrict any use of the information to criminally investigate or prosecute any alcohol or drug abuse patient.[facility] CenterIn the event this information is protected by the Federal Confidentiality of Alcohol and Drug Abuse Patient Records regulations: The Federal rules restrict any use of the information to criminally investigate or prosecute any alcohol or drug abuse patient.[facility] CenterIn the event this information is protected by the Federal Confidentiality of Alcohol and Drug Abuse Patient Records regulations: The Federal rules restrict any use of the information to criminally investigate or prosecute any alcohol or drug abuse patient.[facility] CenterIn the event this information is protected by the Federal Confidentiality of Alcohol and Drug Abuse Patient Records regulations: The Federal rules restrict any use of the information to criminally investigate or prosecute any alcohol or drug abuse patient.[facility] CenterIn the event this information is protected by the Federal Confidentiality of Alcohol and Drug Abuse Patient Records regulations: The Federal rules restrict any use of the information to criminally investigate or prosecute any alcohol or drug abuse patient.[facility] CenterIn the event this information is protected by the Federal Confidentiality of Alcohol and Drug Abuse Patient Records regulations: The Federal rules restrict any use of the information to criminally investigate or prosecute any alcohol or drug abuse patient.[facility] CenterIn the event this information is protected by the Federal Confidentiality of Alcohol and Drug Abuse Patient Records regulations: The Federal rules restrict any use of the information to criminally investigate or prosecute any alcohol or drug abuse patient.[facility] CenterIn the event this information is protected by the Federal Confidentiality of Alcohol and Drug Abuse Patient Records regulations: The Federal rules restrict any use of the information to criminally investigate or prosecute any alcohol or drug abuse patient.[facility] CenterIn the event this information is protected by the Federal Confidentiality of Alcohol and Drug Abuse Patient Records regulations: The Federal rules restrict any use of the information to criminally investigate or prosecute any alcohol or drug abuse patient.[facility] CenterIn the event this information is protected by the Federal Confidentiality of Alcohol and Drug Abuse Patient Records regulations: The Federal rules restrict any use of the information to criminally investigate or prosecute any alcohol or drug abuse patient.[facility] CenterIn the event this information is protected by the Federal Confidentiality of Alcohol and Drug Abuse Patient Records regulations: The Federal rules restrict any use of the information to criminally investigate or prosecute any alcohol or drug abuse patient.[facility] CenterIn the event this information is protected by the Federal Confidentiality of Alcohol and Drug Abuse Patient Records regulations: The Federal rules restrict any use of the information to criminally investigate or prosecute any alcohol or drug abuse patient.[facility] CenterIn the event this information is protected by the Federal Confidentiality of Alcohol and Drug Abuse Patient Records regulations: The Federal rules restrict any use of the information to criminally investigate or prosecute any alcohol or drug abuse patient.[facility] CenterIn the event this information is protected by the Federal Confidentiality of Alcohol and Drug Abuse Patient Records regulations: The Federal rules restrict any use of the information to criminally investigate or prosecute any alcohol or drug abuse patient.[facility] CenterIn the event this information is protected by the Federal Confidentiality of Alcohol and Drug Abuse Patient Records regulations: The Federal rules restrict any use of the information to criminally investigate or prosecute any alcohol or drug abuse patient.[facility] CenterIn the event this information is protected by the Federal Confidentiality of Alcohol and Drug Abuse Patient Records regulations: The Federal rules restrict any use of the information to criminally investigate or prosecute any alcohol or drug abuse patient.[facility] CenterIn the event this information is protected by the Federal Confidentiality of Alcohol and Drug Abuse Patient Records regulations: The Federal rules restrict any use of the information to criminally investigate or prosecute any alcohol or drug abuse patient.[facility] CenterIn the event this information is protected by the Federal Confidentiality of Alcohol and Drug Abuse Patient Records regulations: The Federal rules restrict any use of the information to criminally investigate or prosecute any alcohol or drug abuse patient.[facility] CenterIn the event this information is protected by the Federal Confidentiality of Alcohol and Drug Abuse Patient Records regulations: The Federal rules restrict any use of the information to criminally investigate or prosecute any alcohol or drug abuse patient.[facility] CenterIn the event this information is protected by the Federal Confidentiality of Alcohol and Drug Abuse Patient Records regulations: The Federal rules restrict any use of the information to criminally investigate or prosecute any alcohol or drug abuse patient.[facility] CenterIn the event this information is protected by the Federal Confidentiality of Alcohol and Drug Abuse Patient Records regulations: The Federal rules restrict any use of the information to criminally investigate or prosecute any alcohol or drug abuse patient.[facility] CenterIn the event this information is protected by the Federal Confidentiality of Alcohol and Drug Abuse Patient Records regulations: The Federal rules restrict any use of the information to criminally investigate or prosecute any alcohol or drug abuse patient.[facility] CenterIn the event this information is protected by the Federal Confidentiality of Alcohol and Drug Abuse Patient Records regulations: The Federal rules restrict any use of the information to criminally investigate or prosecute any alcohol or drug abuse patient.[facility] Reason for Visit (unrecogniz ed section and content) Reason Onset Date Comments Question 02/05/2022 medication Reason Onset Date Comments Refill Request 05/01/2022 Reason Comments Follow Up Reason Comments New Patient tremor of left hand Specialty Diagnoses / Procedures Referred By Contac t Referred To Contact Neurology Diagnoses Tremor of left hand Procedures CONSULT TO NEUROLOGY OFFICE/OUTPATIENT [facility] 60-74 MINUTES Ghazala Gusman MD [address] [id number] Referral ID Status Reason Start Date Expiration Date V isits Requested Visits Authorized [id number] Closed PCP Requested Referral 06/04/2022 06/04/2023 1 1 Reason Comments Established Patient Specialty Diagnoses / Procedures Referred By Contac t Referred To Contact Diagnoses Tremor of left hand Procedures PROVIDER ORDERED FOLLOW UP OFFICE/OUTPATIENT [facility] 60-74 MINUTES Sherif Ramirez MD [address] [facility] [place] [address] Referral ID Status Reason Start Date Expiration Date V isits Requested Visits Authorized [id number] Closed PCP Requested Referral 06/23/2022 06/23/2023 1 [...] 1 DAY IMAGING Sherif Ramirez MD [address] [place] [address] Molecular & Functional Imaging [address] [id number] Referral ID Status Reason Start Date Expiration Date V isits Requested Visits Authorized [id number] Closed Auto-Generate d Referral 07/01/2023 07/30/2024 1 1 Reason Comments Established Patient Reason Onset Date Comments Other 06/28/2024 [place] Document ation Reason Onset Date Comments Release [...] OFFICE SCHEDULED ORDER IN SCANNED DOCS AUTH# [id number] GOOD 08/01/24-09/30/[address] ATTENUATION SKULL BASE MID-THIGH PET CT Kalen Izaguirre MD [address] [facility] [address] [place] [address] [facility] [address] [facility] [place] [address] Referral ID Status Reason Start Date Expiration Date Visits Re quested Visits Authorized [id number] Closed 08/01/2024 09/30/2024 1 1 Reason Onset [...] - Discontinuation Of Therapy 06/19 [place] XR Reason Comments Consult Post Covid Symptoms Reason Onset Date Comments Med Refill 08/04/2025 Reason Onset Date Comments Med Refill 08/07/2025 Care Team (unrecognized sect ion and content) Care Team Personnel Name: LARY WHEAT DO Position: P4 Physician - Primary Care Med Service: Active Provider Member Role: Primary Care Physician Address: Address: [address] [place] [address] Name: JAC CHRISTENSEN MD Position: P4 Physician - Cardiology Med Service: Active Provider Member Role: Cdl Bulk Driver Address: Address: [address] [place] [address] Care Team Related Persons Name: SONG PENA Address: Home [address] [place] [place], [place] [id number] Care Team Personnel Name: LARY WHEAT DO Position: P4 Physician - Primary Care Med Service: Active Provider Member Role: Primary Care Physician Address: Address: [address] [place] [id number] [place] [address] Name: JAC CHRISTENSEN MD Position: P4 Physician - Cardiology Med Service: Active Provider Member Role: Cdl Bulk Driver Address: Address: [address] [place] [address] Care Team Related Persons Name: SONG PENA Address: Home [address] [place], [place] [phone] Care Team Personnel Name: LARY WHEAT DO Position: P4 Physician - Primary Care Med Service: Active Provider Member Role: Primary Care Physician Address: Address: [address] [place], [place] [address] Name: JAC CHRISTENSEN MD Position: P4 Physician - Cardiology Med Service: Active Provider Member Role: Cdl Bulk Driver Address: Address: [address] [facility] [address] [address]- Care Team Related Persons Name: SONG PENA Address: Home [address] [place] [place], [place] [phone] Care Team Personnel Name: LARY WHEAT DO Position: P4 Physician - Primary Care Med Service: Active Provider Member Role: Primary Care Physician Address: Address: [address] [place], [place] [address] Name: JAC CHRISTENSEN MD Position: P4 Physician - Cardiology Med Service: Active Provider Member Role: Cdl Bulk Driver Address: Address: [address] [facility] [address] [address]- Care Team Related Persons Name: SONG PENA Address: Home [address] [place] [place], [place] [phone] Care Team Personnel Name: LARY WHEAT DO Position: P4 Physician - Primary Care Member Role: Primary Care Physician Address: Address: [facility] [place], [place] [address] Name: JAC CHRISTENSEN MD Position: P4 Physician - Cardiology Address: Address: [address] [facility] [address] [address]- Care Team Related Persons Name: SONG PENA Address: Home [address] [place] [place], [place] [id number] Care Team Personnel Name: LARY WHEAT DO Position: P4 Physician - Primary Care Med Service: Active Provider Member Role: Primary Care Physician Address: Address: [address] [place] [address]- Name: JAC CHRISTENSEN MD Position: P4 Physician - Cardiology Med Service: Active Provider Member Role: Cdl Bulk Driver Address: Address: [address] [facility] [address] [address] [place] Care Team Related Persons Name: SONG PENA Address: Home [address] [place] [place], [place] [phone] Care Team Personnel Name: LARY WHEAT DO Position: P4 Physician - Primary Care Med Service: Active Provider Member Role: Primary Care Physician Address: Address: [address] [place] [address]- Name: JAC CHRISTENSEN MD Position: P4 Physician - Cardiology Med Service: Active Provider Member Role: Cdl Bulk Driver Address: Address: [address] [address]- Care Team Related Persons Name: SONG PENA Address: Home [address] [place] [place] [phone] Care Team Personnel Name: LARY WHEAT DO Position: P4 Physician - Primary Care Member Role: Primary Care Physician Address: Address: [facility] [place] [address]- Name: JAC CHRISTENSEN MD Position: P4 Physician - Cardiology Member Role: Cdl Bulk Driver Address: Address: [address] [facility] [address] [address]- Care Team Related Persons Name: SONG PENA Address: Home [address] [place] [place] [phone] Care Team Personnel Name: LARY WHEAT DO Position: P4 Physician - Primary Care Member Role: Primary Care Physician Address: Address: [facility] [place] [address]- Name: JAC CHRISTENSEN MD Position: P4 Physician - Cardiology Member Role: Cdl Bulk Driver Address: Address: [address] [facility] [address] [address]- Care Team Related Persons Name: SONG PENA Address: Home [address] [place] [place] [phone] Care Team Personnel Name: LARY WHEAT DO Position: P4 Physician - Primary Care Member Role: Primary Care Physician Address: Address: [address] [place] [address]- Name: JAC CHRISTENSEN MD Position: P4 Physician - Cardiology Member Role: Cdl Bulk Driver Address: Address: [address] [facility] [address] [place] [address]- Care Team Related Persons Name: SONG PENA Address: Home [address] [place] [place] [phone] Care Team Personnel Name: LARY WHEAT DO Position: P4 Physician - Primary Care Member Role: Primary Care Physician Address: Address: [address] [place] [address]- Name: JAC CHRISTENSEN MD Position: P4 Physician - Cardiology Member Role: Cdl Bulk Driver Address: Address: [address] [facility] [address] [place] [address]- Care Team Related Persons Name: SONG PENA Address: Home [address] [place] [place] [phone] Care Team Personnel Name: LARY WHEAT DO Position: P4 Physician - Primary Care Member Role: Primary Care Physician Address: Address: [address] [place] [address]- Name: JAC CHRISTENSEN MD Position: P4 Physician - Cardiology Member Role: Cdl Bulk Driver Address: Address: [address] [facility] [address] [place] [address] [place] Care Team Related Persons Name: SONG PENA Address: Home [address] [place] [place] [phone] Care Team Personnel Name: LARY WHEAT DO Position: P4 Physician - Primary Care Member Role: Primary Care Physician Address: Address: [address] [place], [place] [address] Name: JAC CHRISTENSEN MD Position: P4 Physician - Cardiology Member Role: Cdl Bulk Driver Address: Address: [address] [place] [address] [phone] Care Team Related Persons Name: SONG PENA Address: Home [address] [place], [place] [phone] Care Team Personnel Name: ADRIENNE BYERS DO Position: P4 Physician - Primary Care Member Role: Primary Care Physician Address: Address: [address] [place] [address] [place] Name: JAC CHRISTENSEN MD Position: P4 Physician - Cardiology Member Role: Cdl Bulk Driver Address: Address: [address] [place] [address] Care Team Related Persons Name: SONG PENA Address: Home [address] [place], [place] [phone] Goals (unrecognized section and content) Goals may [...] BE BASED ON THE PRIMARY CLINICAL RECORDS. [employer] provides no warranty or guarantee of the accuracy or completeness of information in this document.
[2025-09-16 20:29] LABS: Mucous, Urine 0 SEEN /hpf (<or=2+)
[2025-09-16 20:31] LABS: Hematocrit 29.7 % (37-47); Hemoglobin 9.6 g/dL (12.0-15.0); Immature Granulocytes Count 0.020 X10^3/uL (0.0-0.0); Mean Corp Hgb Conc 32.3 g/dL (32-36); Mean Corpuscular Volume 93.4 fL (81-99); Mean Platelet Vol. 10.6 fl (6.2-12.0); NRBC Flagged by Analyzer 0 % (0-5); Platelet Count 167 K/mm3 (150-450); RBC Distribution Width CV 13.5 % (11.6-14.6); RBC Distribution Width SD 46.6 fl (35.1-43.9); Red Blood Count 3.18 M/mm3 (4.2-5.4); White Blood Count 5.0 K/mm3 (4.4-11.0)
[2025-09-16 20:42] LABS: Color, Urine Yellow (Yellow); Glucose, Dipstick Normal (Normal); Ketone-Dipstick Negative (Negative); Leukocyte Esterase-Dipstick Negative /ul (Negative); Nitrite-Dipstick Positive (Negative); Occult Blood-Urine Negative /ul (Negative); Protein-Dipstick 30 mg/dl (Negative); Specific Gravity, Urine 1.015 (1.002-1.030)
[2025-09-16 20:48] LABS: Urine Bilirubin Dipstick 3 mg/dL (Negative)
[2025-09-16 20:52] LABS: Red Blood Cells-Urine 0-5 SEEN /hpf (0-5)
[2025-09-16 20:53] LABS: Transitional Epithelial - Ur 0-5 SEEN /hpf (0-5)
[2025-09-16 20:54] LABS: Squamous Epithelial Cells - UA 5-10 SEEN /hpf (5-10)
[2025-09-16 20:55] LABS: AST(SGOT) 18 U/L (<=31); Alanine Aminotransfer ALT/SGPT 6 U/L (<=34); Albumin, Serum 3.6 g/dL (3.4-4.8); Alkaline Phosphatase 67 U/L (35-104); Anion Gap 9 (5-15); BUN 22 mg/dL (4-19); BUN/Creat Ratio 18.2 RATIO (10-20); Calcium,Total 9.0 mg/dL (7.6-11.0); Carbon Dioxide 26.9 mmol/L (21.0-32.0); Chloride 103 mmol/L (98-108); Estimated Creatinine Clearance 39.73 ml/min (50-250); Globulin 3.3 g/dL (2.2-4.2); Glucose 172 mg/dL (70-99); Lipase 30 U/L (13-75); Potassium 4.6 mmol/L (3.3-5.1); Troponin T High Sensitivity 9 ng/L (<=14)
[2025-09-16 21:07] VITALS: BP 138/85; PULSE 66; RESP 28; O2SAT 94
--- NOTE | 2025-09-16 22:10 | CT_ITS ---
PROCEDURE: ABDOMEN/PELVIS WITH CONTRAST 09/16/2025 REASON FOR EXAM: LLQ ABD PAIN, RT HIP PAIN AFTER FALL TECHNIQUE: Procedure Code: [id number] Modality: CT Procedure: ABDOMEN/PELVIS WITH CONTRAST Coronal and Sagittal reconstruction series were provided. CONTRAST: VOLUME: mL One or more dose reduction techniques were used (e.g., Automated exposure control, adjustment of the mA and/or kV according to patient size, use of iterative reconstruction technique. COMPARISON: 06/02/2025. FINDINGS: Incompletely imaged ground-glass density in the right lung base could represent residual infiltrates, decreased since the previous study. A moderate amount of stool is noted throughout the colon. The sigmoid colon demonstrates multiple diverticula, without overt inflammatory changes in the adjacent mesentery to suggest diverticulitis. Prominent dilatation of the 2nd portion of the duodenum is noted. There is a narrow angle between the takeoff of the SMA and the aorta, which appears to compress the 3rd portion of the duodenum, similar to the previous study. 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 The appendix is visualized and normal-appearing. Stable left renal cyst. Cholecystectomy, unchanged. Moderate atherosclerotic calcifications. 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 No karina aneurysmal dilatation. No intraperitoneal free air or free fluid. No acute fracture. Mild thoracolumbar spondylosis. CT/Abdomen/Pelvis WITH Contrast IMPRESSION: 1. Incompletely imaged ground-glass density in the right lung base could repre sent residual infiltrates, decreased since the previous study. 2. Moderate amount of stool throughout the colon. 3. Prominent dilatation of the 2nd portion of the duodenum, similar to the pre vious study. Narrow angle between the takeoff of the SMA and the aorta, which compresses the 3rd portion of the duodenum. 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 4. Sigmoid diverticulosis without CT evidence of overt diverticulitis. 5. Additional nonacute findings, as described above. Reading Location: [id number]
[2025-09-16 22:29] VITALS: BP 118/93; PULSE 115; RESP 14; O2SAT 99
[2025-09-16 22:58] LABS: Troponin T High Sens 2 HR 9 ng/L (<=14)
[2025-09-17] VITALS: BP 144/75; PULSE 80; RESP 21; O2SAT 97
[2025-09-17 00:25] VITALS: BP 144/75; PULSE 91; RESP 16; TEMP 37.1; O2SAT 98
== END 2025-09-17 00:26 | disposition home or self-care (01) ==
PROVIDERS: Emergency Provider Student in an Organized Health Care Education/Training Program; PCP Family Medicine; Visit Provider Student in an Organized Health Care Education/Training Program
DX: R53.1 Weakness (principal); I50.22 Chronic systolic (congestive) heart failure; I13.0 Hypertensive heart and chronic kidney disease with heart failure and stage 1 through stage 4 chronic kidney disease, or unspecified chronic kidney disease; E11.22 Type 2 diabetes mellitus with diabetic chronic kidney disease; N39.0 Urinary tract infection, site not specified; D64.9 Anemia, unspecified; Z87.891 Personal history of nicotine dependence; M25.551 Pain in right hip; N18.9 Chronic kidney disease, unspecified; E78.00 Pure hypercholesterolemia, unspecified; I25.10 Atherosclerotic heart disease of native coronary artery without angina pectoris; K21.9 Gastro-esophageal reflux disease without esophagitis; W19.XXXA Unspecified fall, initial encounter
CPT/HCPCS: 71046; 74177; 80053; 81001; 83690; 84484; 85025; 87631; 93005; 99284; Q9967; A4216

== ENCOUNTER 2025-09-25 12:35 | Outpatient (CLI) | payer MEDICARE, SELFPAY ==
[2025-09-25 13:15] VITALS: BP 101/48; PULSE 85; RESP 16; TEMP 36.6; O2SAT 94; BMI 18.5
[2025-09-25] MEDS: 0.9% Normal Saline (500mL Bag) 500 ML IV (13:25)
[2025-09-25] MEDS: 0.9% NaCl Peripheral Flush Adult IV (13:25)
[2025-09-25 14:32] VITALS: BP 114/54; PULSE 72; RESP 16
== END 2025-09-25 23:59 | disposition home or self-care (01) ==
LOC: MEDOUTP 12:37
PROVIDERS: PCP Family Medicine; Referring Provider Family Medicine; Visit Provider Family Medicine
DX: E86.0 Dehydration (principal); R63.6 Underweight
CPT/HCPCS: 96360; A4216

== ENCOUNTER → 2025-10-25 | Outpatient (CLI) | payer MEDICARE, SELFPAY ==
--- OUTSIDE RECORDS SUMMARY | 2025-10-25 19:48 | XMS RPT_ITS | CCD ---
Author Organization [facility]ini[facility]ma Care Team Providers Care Hand Icer Name Role Phone DR LARY WHEAT DO Primary Care Physician [phone] Jesus Manuel Freitas DO Primary Care Provider Jesus Manuel Freitas DO Primary Care Provider Jesus Manuel Freitas DO Primary Care Provider DR LARY WHEAT DO Primary Care Physician [phone] DR LARY WHEAT DO Primary Care Physician [phone] Jesus Manuel Freitas DO Primary Care Provider Odilon SPICE BLENDER.NIRMALA, Kailyn K Unavailable ADRIENNE BYERS DO Primary Care Physician [phone] Gilbert SPICE BLENDER.NIRMALA, Gissell Unavailable Jesus Manuel Freitas DO Primary Care Provider Odilon SPICE BLENDER.NIRMALA, Kailyn K Unavailable Gilebrt SPICE BLENDER.NIRMALA, Gissell Unavailable Dr. Adrienne Byers Primary Care Provider Dr. Alexsandra Vela Attending Provider Dr. Jose Turk Attending Provider Dr. Uday Orosco Emergency Provider [phone] Dr. Tony Corona Admit Provider Unavailabl e Dr. Tony Corona Other Provider Unavailabl e Dr. Ben Johnson Attending Provider Dr. Ben Johnson Other Provider Dr. Adrienne Byers Referring Provider [phone] Brisa Jennings Attending Provider Unavailable Le, Dr. [...] Provider Dr. Adrienne Christine Attending Provider [phone] Ben Johnson Referring Provider Dr. Heike [...] John FOWLER, Dr. Marci Baird Primary Care [facility] er John FOWLER, Dr. Marci Baird Referring Provider Rosa Pabon Attending Provider John FOWLER, Dr. Marci Baird Attending Provider Addison FOWLER, Dr. Garcia Attending Provider Addison FOWLER, Dr. Garcia Emergency Provider LEYLA MURPHY Referring Unavailable JESUS MANUEL FREITAS R Primary Care Unavailable LEYLA MURPHY Referring Unavailable BROWN, JESUS MANUEL R Primary Care Unavailable John DO, Dr. Marci Baird Primary Care [facility] er John FOWLER, Dr. Marci Baird Referring Provider Rosa Pabon Attending Provider Vito FOWLER, Dr. Walters Emergency Provider Andmain DO, Dr. Walters Emergency Provider Kwesi FOWLER, Dr. Marsh Admit Provider Kwesi FOWLER, Dr. Marsh Attending Provider Kwesi FOWLER, Dr. Marsh Other Provider John FOWLER, Dr. Marci Baird [facility] Care [facility] er John FOWLER, Dr. Marci Baird [...] MORENO, Dr. Alonso Carter Referring Provider Levy OFWLER, Dr. Torrez Attending Provider Levy FOWLER, Dr. Torrez Other Provider [phone] John FOWLER, Dr. Marci Baird [facility] er John FOWLER, Dr. Marci Baird Referring Provider Estuardo MORENO, Dr. Alonso Carter Admit Provider Estuardo MORENO, Dr. Alonso Carter Attending Provider Estuardo MORENO, Dr. Alonso Carter Referring Provider Levy FOWLER, Dr. Torrez Attending Provider Friend , Dr. Torrez Other Provider John DO, Dr. Marci Baird Primary Care [facility] er John FOWLER, Dr. Marci Baird Referring Provider Daysi MORENO, Dr. Peng Referring Provider Arron FOWLER, Dr. Diehl Emergency Provider John FOWLER, Dr. Marci Baird Primary Care [facility] er John FOWLER, Dr. Marci Baird Referring Provider Daysi MORENO, Dr. Peng Referring Provider Dr. Fazal Heller DO Attending Provider Arron FOWLER, Dr. Diehl Emergency Provider Kaykay Siegel Attending Provider John FOWLER, Dr. Marci Baird Primary Care [facility] er Dr. Danish Tavarez MD Attending Provider John FOWLER, Dr. Marci Baird Primary [facility] er John FOWLER, Dr. Marci Baird [...] Marci Lopez DO Primary Care Provider CECILIA OWENS Attending Unavailable SELF Referring Unavailable BROWN, JESUS [...] Unavailable Fortino FOWLER, Dr. Hughes Attending Provider [phone] Fortino FOWLER, Dr. Hughes Referring Provider Fortino [...] MORENO, Dr. Alonso Carter Attending Physician [phone] Levy FOWLER, Dr. Torrez Attending Physician [phone] Levy FOWLER, Dr. Torrez Nurse Practitioner Jose MORENO, Dr. Goldstein Attending Physician Arron FOWLER, Dr. Diehl Attending Physician Dr. Fazal Heller DO Emergency Department Physic blaine Kaykay Siegel Attending Physician Rosa Pabon Attending Physician Dr. Bossman Sanders DO Emergency Department Physici an Alex FOWLER, Dr. Contreras Admitting Physician Alex FOWLER, Dr. Contreras Nurse Practitioner Magno MORENO, Dr. Andersen Attending Physician Alex FOWLER, [...] Attending Unavailable PINA ISIDRO Referring Unavailable JOHN, [place] Primary Care Unavailable JOHN, MARCI Attending Unavailable JOHN, MARCI Referring Unavailable JOHN, [place] Primary Care Unavailable JOHN, MARCI Attending Unavailable JOHN, MARCI Referring Unavailable JOHN, [place] Primary Care Unavailable John DO, Dr. Marci Baird Primary Care Physic blaine Dr. Danish Tavarez MD Attending Physician [phone] Dr. Danish Tavarez MD Referring Provider [phone] Marci Lopez DO Referring Provider Dr. Shan Lockett DO Nurse Practitioner Dr. Shan Lockett DO Attending Physician [phone] John FOWLER, Dr. Marci Baird Primary Care Physic blaine Dr. Danish Tavarez MD Attending Physician Dr. Danish Tavarez MD Referring Provider [phone] Jaimie MORENO, Dr. Dozier Emergency Department Physici an Unavailable [facility] Care UnavailRosa Boo Referring Unavailable Rosa Rodriguez Attending Unavailable [facility] Care Unavailabl Fazal Garcia Attending Unavailable Maximo Orosco Attending [facility] UnavailMaximo Dunlap Admitting [facility]available [facility] Unavail[facility] e Ben Johnson Consulting Unavailable Tereletsky, Ben Admitting Unavailable Ganesh Kiran Attending Unavailable Friend, Shan Consulting Unavailable [facility] Unavailabl e [facility] Referring Unavailabl e Dipti Keenan Attending Unavailable [facility] Unavailabl e [facility] Referring Unavailabl e Jean ROWLEY, Kaykay Baca Attending Unavail able [facility] Unavailabl e Brown, Saul Referring Unavailable Brown, Saul Consulting Unavailable Soo Freitask Attending Unavailable [facility] Unavailabl e Alex, Ben Admitting Unavailable Alex, Ben Consulting Unavailable Ganesh Kiran Attending Unavailable Friend, Shan Consulting Unavailable Ganesh Kiran Consulting Unavailable [facility] Unavailabl e Tasia Etienne Attending Unavailable [facility] Unavailabl e Jose Jaime Attending Unavailable [facility] Unavailabl e Varun Morrell Attending Unavailable [facility] Unavailabl e Brown, Saul Referring Unavailable Saul Freitas Attending Unavailable [facility] Attending Unavailabl e [facility] Unavailabl e [facility] Referring Unavailabl e [facility] Unavailabl e Rosa Rodriguez Referring Unavailable Rosa Rodriguez Attending Unavailable [facility] Attending Unavailabl e [facility] Unavailabl e [facility] Referring Unavailabl e [facility] Unavailabl e Mario Sutherland Attending Unavailable [facility] Unavailabl e Luigi Tinoco Attending Unavailable Luigi Tinoco Referring Unavailable [facility] Referring Unavailabl e [facility] Care Unavailabl e Mayte Burch NP Attending Unavailable Rosa Rodriguez Attending Unavailable [facility] Referring Unavailabl e John, [facility] Unav[facility] Daysi, Danish Attending Unavailable [facility] Unavailabl e Daysi, [place] Referring Unavailable Daysi [place] Attending Unavailable [facility] Unavailabl e Camacho Aguilar Attending Unavailable Jose Royal Consulting Unavailable Jose Royal Admitting Unavailable [facility] Unavailabl e Jose Royal Attending Unavailable [facility] Unavailabl e Camacho Aguilar Attending Unavailable Genny Jose Admitting Unavailable Genny Jose Consulting Unavailable Camacho Aguilar Consulting Unavailable Maximo Orosco Consulting Unavailable Maximo Orosco Attending Unavailable Maximo Orosco Admitting Unavailable [facility] Unavailabl e [facility] Unavailabl e Daysi, Danish Referring Unavailable DaysiLisa washingtonl Attending Unavailable Rosa Rodriguez Attending Unavailable [facility] Referring [facility]availabl e [facility] Unavailabl e [facility] Unavailabl e Daysi, Danish Referring Unavailable DaysiLisa washingtonl Attending Unavailable [facility] Unavailabl Rosa Bellamy Attending Unavailable [facility] Referring Unavailabl e [facility] Unavailabl e [facility] Referring Unavailabl e Kaykay Siegel Attending Unavail able [facility] Unavailabl e [facility] Referring Unavailabl e Luigi Tinoco Attending Unavailable Daysi, Danish Referring Unavailable [facility] Unavailabl e [facility] Referring Unavailabl Adrienne Sarabia Attending Unavailable [facility] Unavailabl e [facility] Referring Unavailabl Saul Richardson Attending Unavailable [facility] Unavailabl e Rosa Rodriguez Attending Unavailable [facility] Referring [facility]availabl e [facility] Unavailabl e Rosa Rodriguez Attending Unavailable [facility] Referring Unavailabl e Ben Johnson Attending Unavailable FriendShan Attending Unavailable [facility] Referring Unavailabl e [facility] Primary Care Unavailabl e Friend, Shan Consulting Unavailable Friend, Shan Attending Unavailable Ganesh Kiran Referring Unavailable Friend, Shan Attending Unavailable [facility] Referring [facility] Estuardo Alonso Chi Attending Unavailable Estuardo, Alonso Chi Referring Unavailable Estuardo, Alonso Chi Admitting Unavailable [facility] Unavailabl e Jose Jaime Attending Unavailable [facility] Attending Unavailabl e [facility] Referring [facility] Unavailabl e Rosa Rodriguez Attending Unavailable [facility] Referring Unavailabl e [facility] Unavailabl e Saul Freitas Attending Unavailable Saul Freitas Referring Unavailable [facility] Unavailabl Angelita Peres Attending Unavailable [facility] Unavailabl Angelita Peres Attending Unavailable [facility] Unavailabl e Rosa Rodriguez Attending Unavailable [facility] Referring [facility]availabl e [facility] Unavailabl e Daysi, Danish Attending Unavailable Daysi, Danish Referring Unavailable [facility] Unavailabl e Daysi, [place] Attending Unavailable Daysi, Danish Referring Unavailable [facility] Care Unavailabl e Daysi, Danish Attending Unavailable [facility] e [facility] Referring Unavailabl e Angelita Garcia Attending Unavailable [facility] Primary [facility] Unavailabl e Danish Tavarez Attending Unavailable Danish Tavarez Referring Unavailable Rosa Rodriguez Attending Unavailable John, [facility] Referring Unavailabl e John, [facility] Primary Care Unavailabl e John, [facility] Referring Unavailabl e John, [facility] Primary Care Unavailabl e Angelita Garcia Attending Unavailable John, [facility] Referring Unavailabl e John, [facility] Primary Care Unavailabl e Kassandra Tejada Attending Unavailable John, [facility] Referring Unavailabl e John, [facility] Care Unavailabl e Angelita Garcia Attending Unavailable John, [facility] Attending Unavailabl e John, [facility] Referring Unavailabl e John, [facility] Primary Care Unavailabl e Allergies Allergy Classification Reported Allergen(s) Allergy Type Date of Onset Reaction(s) Facility HMG-CoA Reductase Inhibitors (statins) (1 source) atorvastatin Drug Allergy 04-03-2010 [facility] (20 sources) atorvastatin; Translations: [ATORVASTATIN CALCIUM] Drug Allergy 04-03-2010 [facility] Medications Current Medications Medication Drug Class(es) [...] 6:47pm Colitis Noninfective gastroenteritis and colitis, unspecified [id number] 200 actuat albuter ol 0.09 mg/actuat metered [...] tab(s), 0 Refill(s), 11/25/21 10:33:00 EST, Pharmacy: [place] [id number] [facility] [employer], 172, cm, 11/20/21 10:16:00 EST, [...] on above: Take 1 tablet by maida three times daily. Do not abruptly stop if at high dose, risk for withdrawal seizures. Take 1 tablet by maida four times daily. Do not abruptly stop if at high dose, risk for withdrawal seizures. Take 2 tablets by mo [facility] three times daily. Do not abruptly stop [...] BID, # 30 tab(s), 6 Refill(s), Pharmacy: [facility]/pharmacy #[id number], 172.7, cm, 06/09/22 8:41:00 [...] BID, # 180 tab(s), 0 Refill(s), Pharmacy: [facility]/pharmacy #[id number], 172.7, cm, 05/12/22 12:20:00 [...] BID, # 7.5 mL, 0 Refill(s), Pharmacy: [facility]/pharmacy #[id number], 172.7, cm, 12/08/22 14:58:00 EST, Height Start Date: 12/08/22 Status: Ordered clonazePAM 1 mg oral tablet (20 sources) Benzodiazepine Start: 11-18-2014 End: 07-20-2025 Start: 11-18-2014 End: 06-20-2024 Comment on above: Take 1 mg by mouth d aily at bedtime. dapagliflozin 5 mg oral tablet (1 source) Sodium-Glucose Cotransporter 2 Inhibitor Start: 022 Farxiga 5 mg oral tablet Dose : 5 mg = 1 tab(s), Oral, qDay, # 30 tab(s), 6 Refill(s), Pharmacy: [facility]/pharmacy #[id number], 172.7, cm, 02/17/22 15:57:00 EDT, Height, kg, 02/17/22 15:57:00 EDT, Dosing Weight Start Date: 02/17/22 Status: Ordered Deutetrabenazine (Austedo Xr) 6 mg tablet extended release 24 hr (7 sources) Start: take 1 tablet by mouth once [...] propionate 0.05 mg/actuat metered dose nasal spray (14 sources) Corticosteroid Start: 07-12-2025 End: 09-03-2025 take 1 spray(s) nasal route twic e [...] Sun, # 30 tab(s), 6 Refill(s), Pharmacy: [facility]/pharmacy #[id number], 172.7, cm, 03/09/22 15:20:00 [...] Wed/Wed/Wed, # 30 tab(s), 3 Refill(s), [id number] 172.7, cm, 02/17/22 15:57:00 EDT, Height, kg, 02/17/22 15:57:00 EDT, Dosing Weight Start Date: 02/17/22 Status: Ordered Start: 12-05-2021 Lasix 20 mg or al tablet Dose : 20 mg = 1 tab(s), Oral, qDay, # 30 tab(s), 3 Refill(s), Pharmacy: [facility]/pharmacy #[id number], 172.7, cm, 12/24/21 2:11:00 EST, Height, kg, 12/24/21 2:11:00 EST, Dosing Weight Start Date: 12/25/21 Status: Ordered Comment on above: as needed. glipiZIDE er 2.5 mg 24 hr extended release oral tablet (20 sources) Sulfonylurea Start: 02-12-2022 glipiZIDE 2.5 mg oral tablet, extended release Dose : 2.5 mg = 1 tab(s), Oral, qDayM, # 90 tab(s), 1 Refill(s), Pharmacy: [facility], 172.7, cm, 12/30/21 10:10:00 EST, Height, kg, 02/12/22 11:01:00 EDT, Dosing Weight Start Date: 02/12/22 Status: Ordered Start: 07-18-2021 glipiZIDE 2.5 mg oral tablet, extended release Dose : 2.5 mg = 1 tab(s), Oral, qDayM, # 90 tab(s), 1 Refill(s), Pharmacy: [facility], 172, cm, 07/18/21 13:16:00 EDT, Height, kg, 07/18/21 13:16:00 EDT, Dosing Weight Start Date: 07/18/21 Status: Ordered Iron Chews (20 sources) Start: 05-01-2022 Iron Chews See Instructions, 18 mcg gummy daily, 0 Refill(s) Start Date: 05/01/22 Status: Ordered lamoTRIgine 100 mg oral tablet (20 sources) Mood Stabilizer, Anti-epileptic Agent Start: 01-23-2025 levoFLOXacin 250 mg oral tablet (4 sources) Quinolone Antimicrobial Start: 09-17-2025 Start: 09-04-2025 End: 09-09-2025 Start: 08-15-2025 End: 08-20-2025 linaclotide 0.145 mg oral ca psule (20 sources) Guanylate Cyclase-C Agonist Start: 08-30-2025 Start: 02-14-2025 End: 07-04-2025 Start: 12-12-2024 End: 04-19-2025 magnesium (as citrate)-melatonin 71.5 mg-1 mg oral tablet (2 sources) Start: 05-01-2022 take 1 tablet by mouth once daily magnesium (as citrate)-melatonin 71.5 mg-1 mg oral tablet See Instructions, [facility] Brand 84 mg gummy daily, 0 Refill(s) Start Date: 05/01/22 Status: Ordered phenazopyridine hydrochloride 100 mg oral tablet (20 sources) Start: 09-07-2025 Start: 04-19-2025 End: 07-12-2025 polyethylene glycol 3350 170 00 mg powder [...] day, # 84 tab(s), 0 Refill(s), Pharmacy: [facility]/pharmacy #[id number], 172.7, cm, 11/02/22 16:36:00 [...] qDay, # 90 cap(s), 1 Refill(s), Pharmacy: [facility], 172.7, cm, 12/30/21 10:10:00 EST, Height, kg, 02/12/22 11:01:00 EDT, Dosing Weight Start Date: 02/12/22 Status: Ordered Start: 02-04-2022 ramipril 2.5 m g oral capsule Dose : 2.5 mg = 1 cap(s), Oral, qDay, # 30 cap(s), 0 Refill(s), Pharmacy: [facility]/pharmacy #[id number], 172.7, cm, 12/30/21 10:10:00 EST, Height, kg, 12/30/21 10:10:00 EST, Dosing Weight Start Date: 02/04/22 Status: Ordered Start: 12-05-2021 End: 02-03-2022 ramipril 2.5 mg oral capsule Dose : 2.5 mg = 1 cap(s), Oral, qDay, # 30 cap(s), 1 Refill(s), Pharmacy: [facility]/pharmacy #[id number], 162, cm, 11/22/21 4:04:00 [...] 11/27/22, # 90 tab(s), 3 Refill(s), Pharmacy: [facility], 172.7, cm, 05/12/22 12:20:00 EDT, Height, kg, 05/22/22 12:54:00 EDT, Dosing Weight Start Date: 05/26/22 Status: Ordered Start: 06-16-2021 rosuvastatin 2 0 mg oral tablet Dose : 20 mg = 1 tab(s), Oral, Daily, # 90 tab(s), 3 Refill(s), Pharmacy: [facility], 170.3, cm, 04/17/21 13:26:00 EDT, Height, kg, 04/17/21 13:26:00 EDT, Dosing Weight Start Date: 06/16/21 Status: Ordered Start: 08-29-2010 rosuvastatin ( CRESTOR) 5 mg ORAL Tab Take by mouth as directed. Wednesday, Wednesday, Wednesday 0 o 08/29/2010 Active Comment on above: 1 qd traZODone hydrochloride 50 mg oral tablet (20 sources) Serotonin Reuptake Inhibitor Start: 11-18-20 14 End: 07-12-20 Comment on above: Take 50 [...] day, # 45 tab(s), 0 Refill(s), Pharmacy: [facility]/pharmacy #[id number], 172.7, cm, 12/08/22 14:58:00 EST, Height, kg, 12/08/22 14:58:00 EST, Dosing Weight Start Date: 01/08/23 Stop Date: 04/08/23 Status: Ordered Start: 12-11-2022 aspirin 81 mg oral delayed release tablet Dose : 81 mg = 1 tab(s), Oral, Every other day, # 15 tab(s), 5 Refill(s), Pharmacy: [facility]/pharmacy #[id number], 172.7, cm, 12/08/22 14:58:00 EST, Height, kg, 12/08/22 14:58:00 EST, Dosing Weight Start Date: 12/11/22 Status: Ordered Start: 12-05-2021 End: 11-30-2022 aspirin 81 mg oral delayed r elease tablet Dose : 81 mg = 1 tab(s), Oral, Every other day, # 90 tab(s), 3 Refill(s), Pharmacy: [facility]/pharmacy #[id number], 162, cm, 11/22/21 4:04:00 EST, Height, kg, 11/22/21 4:04:00 EST, Dosing Weight Start Date: 12/05/21 Stop Date: 11/30/22 Status: Ordered Start: 12-05-2021 End: 11-30-2022 aspirin 81 mg oral delayed r elease tablet Dose : 81 mg = 1 tab(s), Oral, qDay, # 90 tab(s), 3 Refill(s), Pharmacy: [facility]/pharmacy #[id number], 162, cm, 11/22/21 4:04:00 [...] IRON SUPPLEMENTS cefdinir 300 mg oral capsule (4 sources) Cephalosporin Antibacterial Start: 08-06-2025 End: 08-29-2025 cephalexin 500 mg oral capsule (20 sources) Cephalosporin Antibacterial Start: 05-22-2025 End: 05-29-2025 [...] 75 mg by mouth once daily. Deutetrabenazine (3 sources) Start: 04-19-2025 End: 07-04-2025 dicyclomine hydrochloride 20 mg oral tablet (20 sources) Anticholinergic Start: 05-22-2025 End: 05-29-2025 Start: 03-22-2024 End: 04-21-2024 dicyclomine 10 mg oral capsu le Dose : 20 mg = 2 cap(s), Oral, BID, PRN abd cramping, 30 to 60 minutes before meals, # 60 cap(s), 5 Refill(s), Pharmacy: [facility]/pharmacy #[id number], 172.7, cm, 03/22/24 13:19:00 [...] constipation, # 60 cap(s), 2 Refill(s), Pharmacy: [facility]/pharmacy #[id number], 172.7, cm, 08/27/23 13:53:00 [...] Active Comment on above: Take by mouth. lisinopril 10 mg oral tablet (20 sources) Angiotensin Converting Enzyme Inhibitor Start: 06-11-2025 End: 07-12-2025 Start: 02-13-2021 End: 06-23-2022 lisinopril 5 mg oral tablet Dose : 5 mg = 1 tab(s), Oral, qDay, X 90 day(s), # 90 tab(s), 3 Refill(s), 02/08/22 10:37:00 EDT, Pharmacy: [facility], 171, cm, 12/11/20 15:33:00 EST, [...] release), # 15 tab(s), 6 Refill(s), Pharmacy: [facility]/pharmacy #[id number], 172.7, cm, 10/30/22 10:04:00 EST, Height Start Date: 10/30/22 Status: Ordered Start: 02-12-2022 End: 03-14-2022 Toprol-XL 25 mg oral tablet, extended release Dose : 25 mg = 1 tab(s), Oral, qDay, # 90 tab(s), 1 Refill(s), Pharmacy: [facility], 172.7, cm, 12/30/21 10:10:00 EST, Height, kg, 02/12/22 11:01:00 EDT, Dosing Weight Start Date: 02/12/22 Stop Date: 03/14/22 Status: Ordered Start: 02-04-2022 End: 03-06-2022 Toprol-XL 25 mg oral tablet, extended release Dose : 25 mg = 1 tab(s), Oral, qDay, # 30 tab(s), 0 Refill(s), [id number] 172.7, cm, 12/30/21 10:10:00 EST, Height, kg, 12/30/21 10:10:00 EST, Dosing Weight Start Date: 02/04/22 Stop Date: 03/06/22 Status: Ordered Start: 12-05-2021 End: 02-03-2022 Toprol-XL 25 mg oral tablet, extended release Dose : 25 mg = 1 tab(s), Oral, qDay, # 30 tab(s), 1 Refill(s), [id number] 162, cm, 11/22/21 4:04:00 EST, Height, [...] sources) Serotonin-3 Receptor Antagonist Start: 05-22-2025 End: 09-03-2025 Start: 05-22-2025 End: 05-29-2025 take 1 tablet [...] Start: 10-29-2023 take 1 tablet by maida every hour, then take 1 tablet by mouth every other day oxybutynin 5 mg/24 hours oral tablet, extended release Dose : 5 mg = 1 tab(s), Oral, Every other day, # 90 tab(s), 1 Refill(s), Pharmacy: [facility] #[id number], 172.7, cm, 10/29/23 11:29:00 EST, Height, kg, 10/29/23 11:29:00 EST, Dosing Weight Start Date: 10/29/23 Status: Ordered Start: 10-29-2023 take 1 tablet by maida th every hour, then take 0.5 tablet by mouth once daily oxybutynin 5 mg/24 hours oral tablet, extended release Dose : 2.5 mg = 0.5 tab(s), Oral, qDay, # 90 tab(s), 1 Refill(s), [id number] 172.7, cm, 10/29/23 11:29:00 EST, Height, kg, 10/29/23 11:29:00 EST, Dosing Weight Start Date: 10/29/23 Status: Ordered Start: 09-28-2023 End: 10-07-2023 Start: 06-15-2023 take 1 tablet by maida th every hour, then take 1 tablet by mouth once daily oxybutynin 5 mg/24 hours oral tablet, extended release Dose : 5 mg = 1 tab(s), Oral, qDay, # 90 tab(s), 0 Refill(s), [id number] 172.7, cm, 05/18/23 10:38:00 EDT, Height, kg, 05/18/23 10:38:00 EDT, Dosing Weight Start Date: 06/15/23 Status: Ordered Start: 02-12-2022 take 1 tablet by maida th every hour, then take 1 tablet by mouth once daily oxybutynin 5 mg/24 hours oral tablet, extended release Dose : 5 mg = 1 tab(s), Oral, qDay, stop as of 11/27/22, # 90 tab(s), 1 Refill(s), Pharmacy: [facility], 172.7, cm, 12/30/21 10:10:00 EST, Height, kg, 02/12/22 11:01:00 EDT, Dosing Weight Start Date: 02/12/22 Status: Ordered Start: 02-04-2022 take 1 tablet by maida th every hour, then take 1 tablet by mouth once daily oxybutynin 5 mg/24 hours oral tablet, extended release Dose : 5 mg = 1 tab(s), Oral, qDay, # 30 tab(s), 0 Refill(s), Pharmacy: [facility]/pharmacy #[id number], 172.7, cm, 12/30/21 10:10:00 EST, Height, kg, 12/30/21 10:10:00 EST, Dosing Weight Start Date: 02/04/22 Status: Ordered Start: 02-13-2021 take 1 tablet by maida th every hour, then take 1 tablet by mouth once daily oxybutynin 5 mg/24 hours oral tablet, extended release Dose : 5 mg = 1 tab(s), Oral, qDay, # 90 tab(s), 3 Refill(s), Pharmacy: [facility], 171, cm, 12/11/20 15:33:00 EST, [...] Take 1 tablet by maida twice daily. polyethylene glycol 400 2.5 mg/ml ophthalmic solution [...] food, # 30 tab(s), 6 Refill(s), Pharmacy: [facility]/pharmacy #[id number], 172.7, cm, 02/17/22 15:57:00 EDT, Height, kg, 02/17/22 15:57:00 EDT, Dosing Weight Start Date: 02/17/22 Status: Ordered predniSONE 50 mg oral tablet (4 sources) Start: 11-27-2022 End: 12-02-2022 predniSONE 50 mg oral tablet Dose : 25 mg = 0.5 tab(s), Oral, qDayM, # 2.5 tab(s), 0 Refill(s), Pharmacy: [facility]/pharmacy #[id number], 172.7, cm, 11/27/22 14:14:00 [...] Wed/Wed/Wed, # 30 tab(s), 3 Refill(s), Pharmacy: [facility] STORE [id number], 172.7, cm, 03/20/22 8:38:00 EDT, Height, kg, [...] wed,wed,wed, # 15 tab(s), 3 Refill(s), Pharmacy: [facility]/pharmacy #[id number], 172.7, cm, 12/24/21 2:11:00 EST, Height, kg, 12/24/21 2:11:00 EST, Dosing Weight Start Date: 12/25/21 Status: Ordered Comment on above: 12.5 mg. 12.5 mg every other day. tenapanor 50 mg oral tablet (3 sources) Start: 07-30-20 End: 09-03-20 vancomycin 25 mg/ml oral solution (20 sources) [...] Refill(s) Start Date: 07/29/23 Status: Ordered vitamin Q30-zwdkl acid (20 sources) Start: 09-28-2023 End: 10-07-2023 vitamin Y08-izret acid Disco ntinued 1 {tbl} PO DAILY September 28, 2023 1:00am October 07, 2023 1:56pm vitamin Start: 09-28-2023 End: 10-07-2023 vitamin D11-vyfue acid Disco ntinued 1 {tbl} PO DAILY September 28, 2023 1:00am October 07, 2023 1:56pm Start: 09-28-2023 End: 10-07-2023 take 1 tablet by mouth once daily vitamin K93-glmaf acid Discontinued 1 TABLET PO DAILY September 28, 2023 1:00am October 07, 2023 1:56pm Start: 09-28-2023 End: 10-07-2023 take 1 tablet by mouth once daily vitamin B96-ygnix acid Discontinued 1 TABLET PO DAILY September 28, 2023 12:00am October 07, 2023 12:56pm Start: 09-28-2023 take 1 tablet by maida th once daily vitamin S60-yswpo acid Active 1 TABLET PO DAILY September 28, 2023 12:00am Start: 09-28-2023 vitamin B12-fo lic acid Active PO September 28, 2023 12:00am Problems Active Problems Problem Classification Problem Date Documented Date Episodic/Chronic Abdominal pain (20 sources) Inguinal pain; Translations: [Chronic abdominal pain] Onset: 08-27-2023 Episodic Comment on above: over bladder area Acute and unspecified renal failure (20 sources) [...] Translations: [Iron deficiency anemia, unspecified] 07-10-2025 Episodic Deficiency and other anemia (2 sources) Iron deficiency anemia, unspecified; Translations: [Iron deficiency anemia, unspecified iron deficiency anemia type] Onset: 5 Episodic Diabetes mellitus with complications [...] Hyperosmolality with hypernatremia; Translations: [Hyperosmolality and hypernatremia] Onset: 5 Episodic Gastroduodenal ulcer (except hemorrhage) (20 sources) Ulcer of duodenum 09-06-2019 Chronic Gastrointestinal hemorrhage (20 sources) Peptic ulcer with hemorrhage 07-11-2019 Chronic Genitourinary symptoms and ill-defined conditions (20 sources) Urge incontinence of urine; Translations: [Urge incontinence] Onset: 5 10-01-2020 Chronic Genitourinary symptoms and ill-defined conditions (20 sources) Microscopic hematuria; Translations: [Nocturia] Onset: 5 [...] [Chronic fatigue, unspecified] Onset: 5 07-10-2025 Chronic Malaise and fatigue (20 sources) Asthenia; Translations: [Weakness] Onset: Episodic Mood disorders (20 sources) Seasonal affective disorder; Translations: [Severe major depression] 11-02-2022 Chronic Nausea and vomiting (19 sources) Nausea and vomiting; Translations: [Nausea with [...] current use of oral 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; 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] Episodic [...] residual deficits; Translations: [History of stroke] Onset: 5 Episodic Other connective tissue disease (10 sources) [...] Translations: [Cramp of limb] 03-15-2024 Episodic Other connective tissue disease (1 source) Other specified disorders of muscle; Translations: [Other specified disorders of muscle] Onset: 5 Episodic Other diseases of bladder and urethra (20 sources) Overactive bladder; Translations: [Overactive bladder] 10-01-2023 Chronic Other diseases of bladder and urethra (6 sources) Overactive bladder; Translations: [Hypertonicity of bladder] Onset: 5 10-07-2023 Chronic Other disorders of stomach and [...] digestive system] 10-17-2024 Episodic Other gastrointestinal disorders (14 sources) Diarrhea; Translations: [Diarrhea, unspecified] 06-19-2025 Episodic Other gastrointestinal disorders (1 source) Other constipation; Translations: [Other constipation] Onset: Episodic [...] tardive] Onset: Episodic Other infections; including parasitic (13 sources) Late effects of other and unspecified [...] 5 12-13-2024 Episodic Other lower respiratory disease (16 sources) Hypoxia; Translations: [Hypoxemia] 06-02-2025 Episodic Other lower respiratory disease (20 sources) Dyspnea on exertion; Translations: [Other forms of dyspnea] 07-12-2025 Episodic Other lower respiratory disease (1 source) Shortness of breath; Translations: [Shortness of breath] Onset: Episodic Other nervous system disorders (2 [...] functions and awareness; Translations: [Brain fog] Onset: Episodic Other nervous system disorders (1 source) Anosmia; Translations: [Anosmia] Onset: Episodic Other nervous system disorders (1 source) Parageusia; Translations: [Ageusia] Onset: Episodic Other non-traumatic joint disorders (20 sources) [...] extent unspecified] 09-14-2024 Episodic Residual codes; unclassified (1 source) Hypersomnia, unspecified; Translations: [Hypersomnia, unspecified] Onset: 5 Chronic Residual codes; unclassified (16 sources) Chill 11-27-2022 [...] of left hip, initial encounter] 03-10-2025 Episodic Syncope (20 sources) Syncope and collapse; Translations: [Syncope and collapse] Onset: 5 11-28-2024 Episodic Transient cerebral ischemia (20 sources) Transient [...] Translations: [Urinary tract infection, site not specified] Onset: 5 05-22-2025 Episodic Past or Other Problems Problem Classification Problem Date Documented Da te Episodic/Chronic Biliary tract disease (20 sources) Biliary calculus; Translations: [Calculus of gallbladder without cholecystitis without obstruction] Onset: 5 12-26-2014 Episodic Deficiency and other anemia (1 source) Anemia, unspecified; Translations: [Anemia, unspecified] Onset: 5 Episodic Gastrointestinal hemorrhage (20 sources) Lower gastrointestinal hemorrhage; Translations: [Gastrointestinal hemorrhage, unspecified] Onset: 5 02-21-2024 Episodic Other and unspecified benign neoplasm (20 sources) History of polyp of colon; Translations: [Personal history of colonic polyps] Onset: 5 Resolved: 5 Episodic Other injuries and conditions due [...] forms of dyspnea] Onset: 5 Episodic Other lower respiratory disease (1 source) Dyspnea, unspecified; Translations: [Dyspnea, unspecified] Onset: 5 Episodic Other nervous system disorders (1 source) Other abnormalities of gait and mobility; Translations: [Other abnormalities of gait and mobility] Onset: 5 Episodic Pleurisy; pneumothorax; pulmonary collapse (1 source) Interstitial emphysema; Translations: [Interstitial emphysema] Onset: 4 Episodic Pneumonia (except that caused by tuberculosis or sexually transmitted disease) (20 sources) Pneumonia; Translations: [Pneumonia, unspecified organism] Onset: 5 06-02-2025 Episodic Results Test Name Value Interpretation Reference Range Facility Pulmonary Visit Reporton Pulmonary Visit Report Normal [facility] MR/BMS.BUSon 10-01-2025 MR/BMS.BUS Normal [facility] Office Visit Reporton 2024 Office Visit Report Normal [facility] Troponin T HS 4 HRon 025 Trop T High Sen Normal <=14 [facility] Comment on above: Result Comment: PT D ISCHARGED Performed By: #### L 499.0043 ####[facility] [address] [place], [place], [id number] Abdomen/Pelvis WITH Contrast on 09-16-2025 Abdomen/Pelvis WITH Contrast Normal [facility] Absolute lymphocyte countOrd ered By: Tasia Etienne on 09-16-2025 Lymphocytes Auto (Unsp spec) [#/Vol] 1.07 10*3/uL 0.83-4.51 [facility] Anion gap in Serum or Plasma Ordered By: Tasia Jaimie on 09-16-2025 Anion gap [Moles/Vol] 9 mmol/L 5- [facility] Automated lymphocyte count a s percentage of total leukocytesOrdered By: Tasia Etienne on 09-16-2025 Lymphocytes/100 WBC Auto (Unsp spec) 21.5 % - [facility] BUN/creatinine ratioOrdered By: Tasia Morenoer on 09-16-2025 Urea nitrogen/Creatinine [Mass ratio] 18.2 mg/mg 10- [facility] Basophil percentageOrdered B y: Tasia Etienne on 09-16-2025 Basophils/100 WBC (Bld) 0.6 % 0-1 [facility] Bilirubin Test strip Ql (U)O rdered By: Tasia Etienne on 09-16-2025 Bilirubin Ql (U) 3 mg/dL High Negative [facility] Bilirubin, totalOrdered By: Tasia Etienne on 09-16-2025 Bilirubin [Mass/Vol] 0.36 mg/dL 0.00-1.30 [facility] CBC W/Diff, Automatedon 08-23 Absolute Lymph 1.07 X10 3/uL Normal 0.83-4.51 [facility] Comment on above: Performed By: #### L 501.2450, L501.4021, L100.0100, L500.4050 ####[facility] [address] [place], [place], [id number] Absolute Neut 3.2 X10 3/uL Normal 2.0-7.7 [facility] Comment on above: Performed By: #### L 501.2450, L501.4021, L100.0100, L500.4050 ####[facility] [address] [place], [address] Basophils/100 WBC (Bld) 0.6 % Normal 0-1 [facility] Comment on above: Performed By: #### L 501.2450, L501.4021, L100.0100, L500.4050 ####[facility] [address] [place], [address] Eosinophils/100 WBC (Bld) 3.8 % Normal 0-5 [facility] Comment on above: Performed By: #### L 501.2450, L501.4021, L100.0100, L500.4050 ####[facility] [address] [place], [address] Erythrocyte distribution width (RBC) [Ratio] 13.5 % Normal 11.6-14.6 [facility] Comment on above: Performed By: #### L 501.2450, L501.4021, L100.0100, L500.4050 ####[facility] [address] [place], [address] Hematocrit (Bld) [Volume fraction] 29.7 % Low 37-47 [facility] Comment on above: Performed By: #### L 501.2450, L501.4021, L100.0100, L500.4050 ####[facility] [address] [place], [address] Hemoglobin (Bld) [Mass/Vol] 9.6 g/dL Low 12.0-15.0 [facility] Comment on above: Performed By: #### L 501.2450, L501.4021, L100.0100, L500.4050 ####[facility] [address] [place], [address] IG% 0.400 Normal 0.0-0.9 [facility] Comment on above: Result Comment: IG% - Immature Granulocytes (promyelocytes, myelocytes andmetamyelocytes) > 1% indicates that a LEFT SHIFT is Present. Performed By: #### L 501.2450, L501.4021, L100.0100, L500.4050 ####[facility] [address] [place], [address] Lymphocytes/100 WBC (Bld) 21.5 % Normal 19-41 [facility] Comment on above: Performed By: #### L 501.2450, L501.4021, L100.0100, L500.4050 ####[facility] [address] [place], [address] MCH (RBC) [Entitic mass] 30.2 pg Normal 27.0-32.0 [facility] Comment on above: Performed By: #### L 501.2450, L501.4021, L100.0100, L500.4050 ####[facility] [address] [place], [address] MCHC (RBC) [Mass/Vol] 32.3 g/dL Normal 32-36 [facility] Comment on above: Performed By: #### L 501.2450, L501.4021, L100.0100, L500.4050 ####[facility] [address] [place], [address] MCV (RBC) [Entitic vol] 93.4 fL Normal 81-99 [facility] Comment on above: Performed By: #### L 501.2450, L501.4021, L100.0100, L500.4050 ####[facility] [address] [place], [address] Monocytes/100 WBC (Bld) 9.7 % Normal 0-10 [facility] Comment on above: Performed By: #### L 501.2450, L501.4021, L100.0100, L500.4050 ####[facility] [address] [place], [address] Neutrophils/100 WBC (Bld) 64.0 % Normal 47-70 [facility] Comment on above: Performed By: #### L 501.2450, L501.4021, L100.0100, L500.4050 ####[facility] [address] [place], [address] Nucleated RBC (Bld) [#/Vol] 0 10*3/uL Normal 0-5 [facility] Comment on above: Performed By: #### L 501.2450, L501.4021, L100.0100, L500.4050 ####[facility] [address] [place], [address] Platelet mean volume (Bld) [Entitic vol] 10.6 fL Normal 6.2-12.0 [facility] Comment on above: Performed By: #### L 501.2450, L501.4021, L100.0100, L500.4050 ####[facility] [address] [place], [address] Platelets (Bld) [#/Vol] 167 10*3/uL Normal 150-450 [facility] Comment on above: Performed By: #### L 501.2450, L501.4021, L100.0100, L500.4050 ####[facility] [address] [place], [address] RBC (Bld) [#/Vol] 3.18 10*6/uL Low 4.2-5.4 [facility] Comment on above: Performed By: #### L 501.2450, L501.4021, L100.0100, L500.4050 ####[facility] [address] [place], [address] RDW SD 46.6 fl High 35.1-43.9 [facility] Comment on above: Performed By: #### L 501.2450, L501.4021, L100.0100, L500.4050 ####[facility] [address] [place], [address] WBC (Bld) [#/Vol] 5.0 10*3/uL Normal 4.4-11.0 [facility] Comment on above: Performed By: #### L 501.2450, L501.4021, L100.0100, L500.4050 ####[facility] [address] [place], [address] Carbon dioxide, total [Moles /volume] in Central venous bloodOrdered By: Tasia Etienne on 09-16-2025 CO2 [Moles/Vol] 26.9 mmol/L 21.0-32.0 [facility] Chest PA and Lateralon 09-16 Chest PA and Lateral Normal [facility] Chloride assayOrdered By: Audi Etienne on 09-16-2025 Chloride [Moles/Vol] 103 mmol/L 98-108 [facility] Comprehensive Metabolic Prof ilon 09-16-2025 Albumin [Mass/Vol] 3.6 g/dL Normal 3.4-4.8 [facility] Comment on above: Performed By: #### L 501.2450, L501.4021, L100.0100, L500.4050 ####[facility] [address] [place], [address] Albumin/Globulin [Mass ratio] 1.1 {ratio} Normal 0.9-2.4 [facility] Comment on above: Performed By: #### L 501.2450, L501.4021, L100.0100, L500.4050 ####[facility] [address] [place], [address] ALK PHOS 67 U/L Normal 35-104 [facility] Comment on above: Performed By: #### L 501.2450, L501.4021, L100.0100, L500.4050 ####[facility] [address] [place], [address] ALT [Catalytic activity/Vol] 6 U/L Normal <=34 [facility] Comment on above: Performed By: #### L 501.2450, L501.4021, L100.0100, L500.4050 ####[facility] [address] [place], [address] AST [Catalytic activity/Vol] 18 U/L Normal <=31 [facility] Comment on above: Performed By: #### L 501.2450, L501.4021, L100.0100, L500.4050 ####[facility] [address] [place], [address] Bilirubin [Mass/Vol] 0.36 mg/dL Normal 0.00-1.30 [facility] Comment on above: Performed By: #### L 501.2450, L501.4021, L100.0100, L500.4050 ####[facility] [address] [place], [address] BUN/CRE 18.2 RATIO Normal 10-20 [facility] Comment on above: Performed By: #### L 501.2450, L501.4021, L100.0100, L500.4050 ####[facility] [address] [place], [address] Calcium [Mass/Vol] 9.0 mg/dL Normal 7.6-11.0 [facility] Comment on above: Performed By: #### L 501.2450, L501.4021, L100.0100, L500.4050 ####[facility] [address] [place], [address] Chloride [Moles/Vol] 103 mmol/L Normal 98-108 [facility] Comment on above: Performed By: #### L 501.2450, L501.4021, L100.0100, L500.4050 ####[facility] [address] [place], [address] CO2 [Moles/Vol] 26.9 mmol/L Normal 21.0-32.0 [facility] Comment on above: Performed By: #### L 501.2450, L501.4021, L100.0100, L500.4050 ####[facility] [address] [place], [address] Creatinine [Mass/Vol] 1.19 mg/dL Normal 0.70-1.20 [facility] Comment on above: Performed By: #### L 501.2450, L501.4021, L100.0100, L500.4050 ####[facility] [address] [place], [address] ECRCL 39.73 ml/min Low 50-250 [facility] Comment on above: Performed By: #### L 501.2450, L501.4021, L100.0100, L500.4050 ####[facility] [address] [place], [address] GAP 9 Normal 5-15 [facility] Comment on above: Performed By: #### L 501.2450, L501.4021, L100.0100, L500.4050 ####[facility] [address] [place], [address] GFR/1.73 sq M.predicted among non-blacks MDRD (S/P/Bld) [Vol rate/Area] 49 mL/min/{1.73_m2} Low >60 [facility] Comment on above: Result Comment: mL/m in/1.73m2 CKD-EPI Creatinine Equation (2020) Performed By: #### L 501.2450, L501.4021, L100.0100, L500.4050 ####[facility] [address] [place], [address] Globulin (S) [Mass/Vol] 3.3 g/dL Normal 2.2-4.2 [facility] Comment on above: Performed By: #### L 501.2450, L501.4021, L100.0100, L500.4050 ####[facility] [address] [place], [address] Glucose [Mass/Vol] 172 mg/dL High 70-99 [facility] Comment on above: Performed By: #### L 501.2450, L501.4021, L100.0100, L500.4050 ####[facility] [address] [place], [address] Potassium [Moles/Vol] 4.6 mmol/L Normal 3.3-5.1 [facility] Comment on above: Performed By: #### L 501.2450, L501.4021, L100.0100, L500.4050 ####[facility] [address] [place], [address] Sodium [Moles/Vol] 139 mmol/L Normal 133-145 [facility] Comment on above: Performed By: #### L 501.2450, L501.4021, L100.0100, L500.4050 ####[facility] [address] [place], [address] T PROT 6.9 g/dL Normal 5.9-8.4 [facility] Comment on above: Performed By: #### L 501.2450, L501.4021, L100.0100, L500.4050 ####[facility] [address] [place], [address] Urea nitrogen [Mass/Vol] 22 mg/dL High 4-19 [facility] Comment on above: Performed By: #### L 501.2450, L501.4021, L100.0100, L500.4050 ####[facility] [address] [place], [address] Emergency Department Summary on 09-16-2025 Emergency Department Summary Normal [facility] Eosinophil percentageOrdered By: Tasia Etienne on 09-16-2025 Eosinophils/100 WBC (Bld) 3.8 % 0-5 [facility] Erythrocyte distribution wid th ratioOrdered By: Tasia Etienne on 09-16-2025 Erythrocyte distribution width (RBC) [Ratio] 13.5 % 11.6-14.6 [facility] Erythrocyte distribution wid th standard deviationOrdered By: Tasia Etienne on 09-16-2025 Erythrocyte distribution width (RBC) [Ratio] 46.6 fl High 35.1-43.9 [facility] Glomerular filtration rate ( GFR) estimation/1.73 sq m using serum, plasma, or whole bOrdered By: Tasia Etienne on 09-16-2025 GFR/1.73 sq M.predicted among non-blacks MDRD (S/P/Bld) [Vol rate/Area] 49 mL/min/{1.73_m2} Low >60 [facility] Hematocrit Auto (Bld) [Volum e fraction]Ordered By: Tasia Etienne on 09-16-2025 Hematocrit (Bld) [Volume fraction] 29.7 % Low 37-47 [facility] Hemoglobin measurementOrdere d By: Tasia Etienne on 09-16-2025 Hemoglobin (Bld) [Mass/Vol] 9.6 g/dL Low 12.0-15.0 [facility] Immature granulocytes/100 WB C Auto (Bld)Ordered By: Tasia Etienne on 09-16-2025 Immature granulocytes/100 WBC (Bld) 0.400 % 0.0-0.9 [facility] Influenza virus A and B and SARS-CoV-2 (COVID-19) and Respiratory syncytial virus RNAOrdered By: Tasia Etienne on 09-16-2025 SARS-CoV-2 (COVID-19) RNA ENRIQUE+probe Ql (Unsp spec) [facility] Ketones Test strip Ql (U)Ord ered By: Tasia Etienne on 09-16-2025 Ketones Ql (U) Negative Negative [facility] L501.4021on 09-16-2025 Trop T High Sen 9 ng/L Normal <=14 [facility] Comment on above: Performed By: #### L 501.2450, L501.4021, L100.0100, L500.4050 ####[facility] [address] [place], [address] Lipaseon 09-16-2025 Lipase [Catalytic activity/Vol] 30 U/L Normal 13-75 [facility] Comment on above: Result Comment: Josy fay note:LIPASE revised reference range effective 23.New Lipase methodology. Expected to produce lower valuesthan the previous assay method.NEW Reference Range: 13 - 75 U/L Performed By: #### L 501.2450, L501.4021, L100.0100, L500.4050 ####[facility] [address] [place], [address] M100.678on 09-16-2025 M100.678 SARS-CoV-2 (COVID 19 ) Negative INFLUENZA A Negative INFLUENZA B Negative RSV PCR Negative Normal [facility] Comment on above: Performed By: #### M 100.678, L400.0001 ####[facility] [address] [place], [address] MCV (mean corpuscular volume ) determinationOrdered By: Tasia Etienne on 09-16-2025 MCV (RBC) [Entitic vol] 93.4 fL 81-99 [facility] Mean corpuscular hemoglobin (MCH) determinationOrdered By: Tasia Etienne on 09-16-2025 MCH (RBC) [Entitic mass] 30.2 pg 27.0-32.0 [facility] Monocyte percentageOrdered B y: Tasia Etienne on 09-16-2025 Monocytes/100 WBC (Bld) 9.7 % 0-10 [facility] Mucus LM Ql (Urine sed)Order ed By: Tasia Etienne on 09-16-2025 Mucus Ql (Urine sed) 0 SEEN /hpf [facility] Neutrophil percentageOrdered By: Tasia Etienne on 09-16-2025 Neutrophils/100 WBC (Bld) 64.0 % 47-70 [facility] Nitrite Test strip Ql (U)Ord ered By: Tasia Morenoer on 09-16-2025 Nitrite Ql (U) Positive High Negative [facility] No Panel InformationOrdered By: Tasiacm Etienne on 09-16-2025 18 U/L <32 [facility] Platelet countOrdered By: Audi cm Etienne on 09-16-2025 Platelets (Bld) [#/Vol] 167 10*3/uL 150-450 [facility] Potassium measurement (mass/ volume)Ordered By: Tasiacm Etienne on 09-16-2025 Potassium (Unsp spec) [Mass/Vol] 4.6 mmol/L 3.3-5.1 [facility] Protein Test strip Ql (U)Ord ered By: Tasiacm Etienne on 09-16-2025 Protein Ql (U) 30 mg/dl High Negative [facility] RBC Auto (Bld) [#/Vol]Ordere d By: Tasiacm Etienne on 09-16-2025 RBC (Bld) [#/Vol] 3.18 10*6/uL Low 4.2-5.4 [facility] Serum creatinine measurement (mass/volume)Ordered By: Tasiacm Etienne on 09-16-2025 Creatinine [Mass/Vol] 1.19 mg/dL 0.70-1.20 [facility] Serum globulin measurementOr dered By: Tasia Etienne on 09-16-2025 Globulin (S) [Mass/Vol] 3.3 g/dL 2.2-4.2 [facility] Serum glucose measurement (m ass/volume)Ordered By: Tasia Etienne on 09-16-2025 Glucose [Mass/Vol] 172 mg/dL High 70-99 [facility] Serum or plasma alanine cisneros otransferase (ALT) measurementOrdered By: Tasia Etienne on 09-16-2025 ALT [Catalytic activity/Vol] 6 U/L <35 [facility] Serum or plasma albumin loco urement (mass/volume)Ordered By: Tasia Etienne on 09-16-2025 Albumin [Mass/Vol] 3.6 g/dL 3.4-4.8 [facility] Serum or plasma albumin/glob ulin mass ratioOrdered By: Tasia Etienne on 09-16-2025 Albumin/Globulin [Mass ratio] 1.1 {ratio} 0.9-2.4 [facility] Serum or plasma alkaline sergio sphatase measurementOrdered By: Tasia Etienne on 09-16-2025 ALP [Catalytic activity/Vol] 67 U/L 35-104 [facility] Serum or plasma calcium loco urement (mass/volume)Ordered By: Tasia Etienne on 09-16-2025 Calcium [Mass/Vol] 9.0 mg/dL 7.6-11.0 [facility] Serum or plasma urea nitroge n measurement (mass/volume)Ordered By: Tasia Etienne on 09-16-2025 Urea nitrogen [Mass/Vol] 22 mg/dL High 4-19 [facility] Sodium levelOrdered By: Jose Etienne on 09-16-2025 Sodium [Moles/Vol] 139 mmol/L 133-145 [facility] Squamous epithelial cells de tection in urine sediment by light microscopyOrdered By: Tasia Etienne on 09-16-2025 Epithelial cells.squamous LM Ql (Urine sed) 5-10 SEEN /hpf 5-10 [facility] Total proteinOrdered By: Ava Etienne on 09-16-2025 Protein [Mass/Vol] 6.9 g/dL 5.9-8.4 [facility] Transitional cells detection in urine sediment by light microscopyOrdered By: Tasia Etienne on 09-16-2025 Transitional cells LM Ql (Urine sed) 0-5 SEEN /hpf 0-5 [facility] Troponin T HS 2 HRon 025 Trop T High Sen 9 ng/L Normal <=14 [facility] Comment on above: Performed By: #### L 499.0042 ####[facility] [address] [place], [address] Troponin T.cardiac [Mass/vol ume] in Serum or Plasma by High sensitivity methodOrdered By: Tasia Etienne on 09-16-2025 Troponin T.cardiac High sensitivity method [Mass/Vol] 9 ng/L <14 [facility] Troponin T.cardiac High sensitivity method [Mass/Vol] 9 ng/L Invalid Interpretation Code <14 [facility] Urinalysis, Completeon 09-16 EPI,SQUAMOUS 5-10 SEEN Normal 5-10 [facility] Comment on above: Order Comment: CLEAN CATCH Performed By: #### M 100.678, L400.0001 ####[facility] [address] [place], [address] EPI,TRANSITION 0-5 SEEN Normal 0-5 [facility] Comment on above: Order Comment: CLEAN CATCH Performed By: #### M 100.678, L400.0001 ####[facility] [address] [place], [address] BACTERIA 1+ /hpf Normal None Seen [facility] Comment on above: Order Comment: CLEAN CATCH Performed By: #### M 100.678, L400.0001 ####[facility] [address] [place], [address] RBC 0-5 SEEN Normal 0-5 [facility] Comment on above: Order Comment: CLEAN CATCH Performed By: #### M 100.678, L400.0001 ####[facility] [address] [place], [address] WBC 0-5 SEEN Normal 0-5 [facility] Comment on above: Order Comment: CLEAN CATCH Performed By: #### M 100.678, L400.0001 ####[facility] [address] [place], [address] Mucus Ql (Urine sed) 0 SEEN Normal [facility] Comment on above: Order Comment: CLEAN CATCH Performed By: #### M 100.678, L400.0001 ####[facility] [address] [place], [address] Urine clarityOrdered By: Ava Etienne on 09-16-2025 Clarity (U) Cloudy Clear [facility] Urine color determinationOrd ered By: Tasia Etienne on 09-16-2025 Color (U) Yellow Yellow [facility] Urine glucose detectionOrder ed By: Tasia Etienne on 09-16-2025 Glucose Ql (U) Normal mg/dl Normal [facility] Urine leukocyte esterase det ection by dipstickOrdered By: Tasia Etienne on 09-16-2025 Leukocyte esterase Test strip Ql (U) Negative Negative [facility] Urine pHOrdered By: Tasia cartwright on 09-16-2025 pH (U) 5.0 [pH] 5.0 - 8.0 [facility] Urine sediment bacteria coun t by microscopy (number/high power field)Ordered By: Tasia Etinene on 09-16-2025 Bacteria LM.HPF (Urine sed) [#/Area] 1 /[HPF] None Seen [facility] Urine specific gravity measu rementOrdered By: Tasia Etienne on 09-16-2025 Specific gravity (U) [Rel density] 1.015 1.002-1.030 [facility] Urine urobilinogen measureme ntOrdered By: Tasia Etienne on 09-16-2025 Urobilinogen Ql (U) 4 mg/dl High Normal [facility] White blood cell (WBC) count Ordered By: Tasia Etienne on 09-16-2025 WBC (Bld) [#/Vol] 5.0 10*3/uL 4.4-11.0 [facility] White blood cell countOrdere d By: Tasia Etienne on 09-16-2025 White blood cell count 0-5 SEEN /hpf 0-5 [facility] MR/BMSRuth Ann 09-03-2025 MR/BMS.BERT Normal [facility] No Panel InformationOrdered By: Angelita Garcia on 09-03-2025 Negative [facility] 0.2 mg/dL [facility] 1.015 [facility] 6 [facility] 1+ [facility] Trace [facility] Positive [facility] Moderate [facility] None Seen [facility] Small [facility] Gastroenterology Visit Repor ton 08-29-2025 Gastroenterology Visit Report Normal [facility] No Panel InformationOrdered By: Angelita Garcia on 08-14-2025 Negative [facility] 0.2 mg/dL [facility] 1.010 [facility] 6 [facility] Negatve [facility] Office Visit Reporton 2024 Office Visit Report Normal [facility] 36on 08-07-2025 36 Name of caller: Beatrice lashell Contact phone number: [phone] Relationship to Patient: spouse/SO Provider: Dr. Lopez Practice: [facility] Chief Complaint/Reason for Call: Patient Song to request refill for patient's oxyCODONE HCl (5 MG Tablet). Song stated patient is completley out and will need refill for tomorrow. Please contact Song and advise. Best time of day caller can be reached: any Patient advised that office/PCP has 24-48 business hours to return their call: Yes Normal [facility] MR/BMS.BUSon 08-06-2025 MR/BMS.BUS Normal [facility] No Panel InformationOrdered By: Angelita Garcia on 08-06-2025 Negative [facility] 1.010 [facility] 7.5 [facility] Trace [facility] Positive [facility] 36on 08-04-2025 36 S: Song spoke with [facility] nurse regarding medication refill B: Onset of symptoms/concern 08/04/25 A: States patient will need refill of Oxycodone 5 mg tablets on Wednesday. States they have 3 tablets left. Song confirmed no known drug allergies and pharmacy as [facility]. R: Song understands care advice that office is closed and a message will be sent to office for review during office hours. No further needs at this time. Patient spouse instructed to call back with new or worsening symptoms. Reason for Disposition Caller requesting a CONTROLLED substance prescription refill (e.g., narcotics, ADHD medicines) Protocols used: Medication Refill and Renewal Qoml-ASFXS-RH Normal [facility] Pacemaker Checkon 07-26-2025 Pacemaker Check Normal [facility] Gastroenterology Visit Repor ton 07-20-2025 Gastroenterology Visit Report Normal [facility] 6 Minute Walk Teston 025 6 Minute Walk Test Normal [facility] Pulmonary Visit Reporton Pulmonary Visit Report Normal [facility] CNOVon 07-10-2025 CNOV Office Visit (PUMBHT ) MANSI CARO ([id number]) 1955 F Date Time Provider Department 07/10/25 10:00 AM LEONEL HURTADO [facility] During your visit today, we recorded the following information about you: Temperature Pulse Respiration Blood pressure 98.4 degrees 93/minute 20/minute 164/75 Leonel Hurtado, DAYNE.RANGER AIDE 07/10/2025 10:52 AM Addendum Welcome to [facility]! The 'COV' represents SARS-CoV-2, also [...] virtual visit(s) as needed in which all [facility] testing, imaging, and labs will [...] and your current symptoms. ------ Fatigue resources: https://.[facility]/health/sympto ms/21775-ueibeph https://.[facility]/health/diseas es/18796-azgqaar-trnbs halomyelitis-- tcocfbc-brvqgxd-hsuedi me-me-cfs http://www.[facility].ca/a xhg-twon-ansl/Document s/post_covid-19_fatigu e.pdf https://www.[facility] th.nhs.uk/wp-content/u ploads//[place]-090. 62-Ouey-WMDXI- -Leaflet.pdf https://Widdle/wp-content/uploads //Yygjl-lstso-q pqcqc-cng-jqs- igue.pdf ------ You may call [phone] to reach Wellness (Integrative medicine). We work [...] other three scents. -The exercise is repeated grx-tp-amrtm times a day and it is possible to get an improvement in both objective and subjective smell tests at three months, six months and even up to a year. -In some situations, steroid sprays might be used, too, to cause an even higher improvement. Consider trying Flonase (available icfg-vxy-zwvvjzm) 1 spray in each nostril once daily. [...] and can (more content not included)... Normal [facility] Anion gap in Serum or Plasma Ordered By: Mario Rosario on 07-09-2025 Anion gap [Moles/Vol] 7 mmol/L - [facility] BUN/creatinine ratioOrdered By: Mario Rosario on 07-09-2025 Urea nitrogen/Creatinine [Mass ratio] 17.3 mg/mg - [facility] Basic Metabolic Profile (BMP )on 07-09-2025 BUN/CRE 17.3 RATIO Normal - [facility] Comment on above: Order Comment: 310-1 Performed By: #### L 100.0500, L500.2500 ####[facility] [address] [place], [address] Calcium [Mass/Vol] 8.6 mg/dL Normal 7.6-11.0 [facility] Comment on above: Order Comment: 310-1 Performed By: #### L 100.0500, L500.2500 ####[facility] [address] [place], [address] Chloride [Moles/Vol] 108 mmol/L Normal 98-108 [facility] Comment on above: Order Comment: 310-1 Performed By: #### L 100.0500, L500.2500 ####[facility] [address] [place], [address] CO2 [Moles/Vol] 28.3 mmol/L Normal 21.0-32.0 [facility] Comment on above: Order Comment: 310-1 Performed By: #### L 100.0500, L500.2500 ####[facility] [address] [place], [address] Creatinine [Mass/Vol] 0.83 mg/dL Normal 0.70-1.20 [facility] Comment on above: Order Comment: 310-1 Performed By: #### L 100.0500, L500.2500 ####[facility] [address] [place], [address] GAP 7 Normal 5-15 [facility] Comment on above: Order Comment: 310-1 Performed By: #### L 100.0500, L500.2500 ####[facility] [address] [place], [address] GFR/1.73 sq M.predicted among non-blacks MDRD (S/P/Bld) [Vol rate/Area] 75 mL/min/{1.73_m2} Normal >60 [facility] Comment on above: Order Comment: 310-1 Result Comment: mL/m in/1.73m2 CKD-EPI Creatinine Equation (2020) Performed By: #### L 100.0500, L500.2500 ####[facility] [address] [place], [address] Glucose [Mass/Vol] 129 mg/dL High 70-99 [facility] Comment on above: Order Comment: 310-1 Performed By: #### L 100.0500, L500.2500 ####[facility] [address] [place], [address] Potassium [Moles/Vol] 3.7 mmol/L Normal 3.3-5.1 [facility] Comment on above: Order Comment: 310-1 Performed By: #### L 100.0500, L500.2500 ####[facility] [address] [place], [address] Sodium [Moles/Vol] 143 mmol/L Normal 133-145 [facility] Comment on above: Order Comment: 310-1 Performed By: #### L 100.0500, L500.2500 ####[facility] [address] [place], [address] Urea nitrogen [Mass/Vol] 14 mg/dL Normal 4-19 [facility] Comment on above: Order Comment: 310-1 Performed By: #### L 100.0500, L500.2500 ####[facility] [address] [place], [address] CBC-Complete Blood Cnt No Di ffon 07-09-2025 Erythrocyte distribution width (RBC) [Ratio] 14.0 % Normal 11.6-14.6 [facility] Comment on above: Order Comment: 310-1 Performed By: #### L 100.0500, L500.2500 ####[facility] [address] [place], [address] Hematocrit (Bld) [Volume fraction] 31.1 % Low 37-47 [facility] Comment on above: Order Comment: 310-1 Performed By: #### L 100.0500, L500.2500 ####[facility] [address] [place], [address] Hemoglobin (Bld) [Mass/Vol] 9.6 g/dL Low 12.0-15.0 [facility] Comment on above: Order Comment: 310-1 Performed By: #### L 100.0500, L500.2500 ####[facility] [address] [place], [address] MCH (RBC) [Entitic mass] 30.0 pg Normal 27.0-32.0 [facility] Comment on above: Order Comment: 310-1 Performed By: #### L 100.0500, L500.2500 ####[facility] [address] [place], [address] MCHC (RBC) [Mass/Vol] 30.9 g/dL Low 32-36 [facility] Comment on above: Order Comment: 310-1 Performed By: #### L 100.0500, L500.2500 ####[facility] [address] [place], [address] MCV (RBC) [Entitic vol] 97.2 fL Normal 81-99 [facility] Comment on above: Order Comment: 310-1 Performed By: #### L 100.0500, L500.2500 ####[facility] [address] [place], [address] Platelet mean volume (Bld) [Entitic vol] 11.7 fL Normal 6.2-12.0 [facility] Comment on above: Order Comment: 310-1 Performed By: #### L 100.0500, L500.2500 ####[facility] [address] [place], [address] Platelets (Bld) [#/Vol] 169 10*3/uL Normal 150-450 [facility] Comment on above: Order Comment: 310-1 Performed By: #### L 100.0500, L500.2500 ####[facility] [address] [place], [address] RBC (Bld) [#/Vol] 3.20 10*6/uL Low 4.2-5.4 [facility] Comment on above: Order Comment: 310-1 Performed By: #### L 100.0500, L500.2500 ####[facility] [address] [place], [address] RDW SD 49.8 fl High 35.1-43.9 [facility] Comment on above: Order Comment: 310-1 Performed By: #### L 100.0500, L500.2500 ####[facility] [address] [place], [address] WBC (Bld) [#/Vol] 4.2 10*3/uL Low 4.4-11.0 [facility] Comment on above: Order Comment: 310-1 Performed By: #### L 100.0500, L500.2500 ####[facility] [address] [place], [address] Carbon dioxide, total [Moles /volume] in Central venous bloodOrdered By: Mario Rosario on 07-09-2025 CO2 [Moles/Vol] 28.3 mmol/L 21.0-32.0 [facility] Chloride assayOrdered By: Shelton on 07-09-2025 Chloride [Moles/Vol] 108 mmol/L 98-108 [facility] Erythrocyte distribution wid th ratioOrdered By: Mario Rosario on 07-09-2025 Erythrocyte distribution width (RBC) [Ratio] 14.0 % 11.6-14.6 [facility] Erythrocyte distribution wid th standard deviationOrdered By: Mario Rosario on 07-09-2025 Erythrocyte distribution width (RBC) [Ratio] 49.8 fl High 35.1-43.9 [facility] Glomerular filtration rate ( GFR) estimation/1.73 sq m using serum, plasma, or whole bOrdered By: Mario Rosario on 07-09-2025 GFR/1.73 sq M.predicted among non-blacks MDRD (S/P/Bld) [Vol rate/Area] 75 mL/min/{1.73_m2} >60 [facility] Hematocrit Auto (Bld) [Volum e fraction]Ordered By: Mario Rosario on 07-09-2025 Hematocrit (Bld) [Volume fraction] 31.1 % Low 37-47 [facility] Hemoglobin measurementOrdere d By: Mario Rosario on 07-09-2025 Hemoglobin (Bld) [Mass/Vol] 9.6 g/dL Low 12.0-15.0 [facility] MCV (mean corpuscular volume ) determinationOrdered By: Mario Rosario on 07-09-2025 MCV (RBC) [Entitic vol] 97.2 fL 81-99 [facility] Mean corpuscular hemoglobin (MCH) determinationOrdered By: Mario Rosario on 07-09-2025 MCH (RBC) [Entitic mass] 30.0 pg 27.0-32.0 [facility] Platelet countOrdered By: Shelton on 07-09-2025 Platelets (Bld) [#/Vol] 169 10*3/uL 150-450 [facility] Potassium measurement (mass/ volume)Ordered By: Mario Rosario on 07-09-2025 Potassium (Unsp spec) [Mass/Vol] 3.7 mmol/L 3.3-5.1 [facility] RBC Auto (Bld) [#/Vol]Ordere d By: Mario Rosario on 07-09-2025 RBC (Bld) [#/Vol] 3.20 10*6/uL Low 4.2-5.4 [facility] Serum creatinine measurement (mass/volume)Ordered By: Mario Rosario on 07-09-2025 Creatinine [Mass/Vol] 0.83 mg/dL 0.70-1.20 [facility] Serum glucose measurement (m ass/volume)Ordered By: Mario Rosario on 07-09-2025 Glucose [Mass/Vol] 129 mg/dL High 70-99 [facility] Serum or plasma calcium loco urement (mass/volume)Ordered By: Mario Rosario on 07-09-2025 Calcium [Mass/Vol] 8.6 mg/dL 7.6-11.0 [facility] Serum or plasma urea nitroge n measurement (mass/volume)Ordered By: Mario Rosario on 07-09-2025 Urea nitrogen [Mass/Vol] 14 mg/dL 4-19 [facility] Sodium levelOrdered By: Mario Rosario on 07-09-2025 Sodium [Moles/Vol] 143 mmol/L 133-145 [facility] White blood cell (WBC) count Ordered By: Mario Rosario on 07-09-2025 WBC (Bld) [#/Vol] 4.2 10*3/uL Low 4.4-11.0 [facility] Absolute lymphocyte countOrd ered By: Camacho Aguilar on 07-04-2025 Lymphocytes Auto (Unsp spec) [#/Vol] 1.49 10*3/uL 0.83-4.51 [facility] Automated lymphocyte count a s percentage of total leukocytesOrdered By: Camacho Aguilar on 07-04-2025 Lymphocytes/100 WBC Auto (Unsp spec) 44.0 % High 19-41 [facility] Basophil percentageOrdered B y: Camacho Aguilar on 07-04-2025 Basophils/100 WBC (Bld) 0.3 % 0-1 [facility] CBC W/Diff, Automatedon 06-22 Absolute Lymph 1.49 X10 3/uL Normal 0.83-4.51 [facility] Comment on above: Performed By: #### L 100.0100 ####[facility] [address] [place], [address] Absolute Neut 1.3 X10 3/uL Low 2.0-7.7 [facility] Comment on above: Performed By: #### L 100.0100 ####[facility] [address] [place], [address] Basophils/100 WBC (Bld) 0.3 % Normal 0-1 [facility] Comment on above: Performed By: #### L 100.0100 ####[facility] [address] [place], [address] Eosinophils/100 WBC (Bld) 4.4 % Normal 0-5 [facility] Comment on above: Performed By: #### L 100.0100 ####[facility] [address] [place], [address] Erythrocyte distribution width (RBC) [Ratio] 13.4 % Normal 11.6-14.6 [facility] Comment on above: Performed By: #### L 100.0100 ####[facility] [address] [place], [address] Hematocrit (Bld) [Volume fraction] 30.5 % Low 37-47 [facility] Comment on above: Performed By: #### L 100.0100 ####[facility] [address] [place], [address] Hemoglobin (Bld) [Mass/Vol] 9.9 g/dL Low 12.0-15.0 [facility] Comment on above: Performed By: #### L 100.0100 ####[facility] [address] [place], [address] IG% 0.300 Normal 0.0-0.9 [facility] Comment on above: Result Comment: IG% - Immature Granulocytes (promyelocytes, myelocytes andmetamyelocytes) > 1% indicates that a LEFT SHIFT is Present. Performed By: #### L 100.0100 ####[facility] [address] [place], [address] Lymphocytes/100 WBC (Bld) 44.0 % High 19-41 [facility] Comment on above: Performed By: #### L 100.0100 ####[facility] [address] [place], [address] MCH (RBC) [Entitic mass] 30.0 pg Normal 27.0-32.0 [facility] Comment on above: Performed By: #### L 100.0100 ####[facility] [address] [place], [address] MCHC (RBC) [Mass/Vol] 32.5 g/dL Normal 32-36 [facility] Comment on above: Performed By: #### L 100.0100 ####[facility] [address] [place], [address] MCV (RBC) [Entitic vol] 92.4 fL Normal 81-99 [facility] Comment on above: Performed By: #### L 100.0100 ####[facility] [address] [place], [address] Monocytes/100 WBC (Bld) 13.0 % High 0-10 [facility] Comment on above: Performed By: #### L 100.0100 ####[facility] [address] [place], [address] Neutrophils/100 WBC (Bld) 38.0 % Low 47-70 [facility] Comment on above: Performed By: #### L 100.0100 ####[facility] [address] [place], [address] Nucleated RBC (Bld) [#/Vol] 0 10*3/uL Normal 0-5 [facility] Comment on above: Performed By: #### L 100.0100 ####[facility] [address] [place], [address] Platelet mean volume (Bld) [Entitic vol] 11.0 fL Normal 6.2-12.0 [facility] Comment on above: Performed By: #### L 100.0100 ####[facility] [address] [place], [address] Platelets (Bld) [#/Vol] 151 10*3/uL Normal 150-450 [facility] Comment on above: Performed By: #### L 100.0100 ####[facility] [address] [place], [address] RBC (Bld) [#/Vol] 3.30 10*6/uL Low 4.2-5.4 [facility] Comment on above: Performed By: #### L 100.0100 ####[facility] [address] [place], [address] RDW SD 45.9 fl High 35.1-43.9 [facility] Comment on above: Performed By: #### L 100.0100 ####[facility] [address] [place], [address] WBC (Bld) [#/Vol] 3.4 10*3/uL Low 4.4-11.0 [facility] Comment on above: Performed By: #### L 100.0100 ####[facility] [address] [place], [address] Eosinophil percentageOrdered By: Camacho Aguilar on 07-04-2025 Eosinophils/100 WBC (Bld) 4.4 % 0-5 [facility] Erythrocyte distribution wid th ratioOrdered By: Camacho Aguilar on 07-04-2025 Erythrocyte distribution width (RBC) [Ratio] 13.4 % 11.6-14.6 [facility] Erythrocyte distribution wid th standard deviationOrdered By: Camacho Aguilar on 07-04-2025 Erythrocyte distribution width (RBC) [Ratio] 45.9 fl High 35.1-43.9 [facility] Hematocrit Auto (Bld) [Volum e fraction]Ordered By: Camacho Aguilar on 07-04-2025 Hematocrit (Bld) [Volume fraction] 30.5 % Low 37-47 [facility] Hemoglobin measurementOrdere d By: Camacho Aguilar on 07-04-2025 Hemoglobin (Bld) [Mass/Vol] 9.9 g/dL Low 12.0-15.0 [facility] Immature granulocytes/100 WB C Auto (Bld)Ordered By: Camacho Aguilar on 07-04-2025 Immature granulocytes/100 WBC (Bld) 0.300 % 0.0-0.9 [facility] MCV (mean corpuscular volume ) determinationOrdered By: Camacho Aguilar on 07-04-2025 MCV (RBC) [Entitic vol] 92.4 fL 81-99 [facility] Mean corpuscular hemoglobin (MCH) determinationOrdered By: Camacho Aguilar on 07-04-2025 MCH (RBC) [Entitic mass] 30.0 pg 27.0-32.0 [facility] Monocyte percentageOrdered B y: Camacho Aguilar on 07-04-2025 Monocytes/100 WBC (Bld) 13.0 % High 0-10 [facility] Neutrophil percentageOrdered By: Camacho Aguilar on 07-04-2025 Neutrophils/100 WBC (Bld) 38.0 % Low 47-70 [facility] Platelet countOrdered By: Tanya Aguilar on 07-04-2025 Platelets (Bld) [#/Vol] 151 10*3/uL 150-450 [facility] RBC Auto (Bld) [#/Vol]Ordere d By: Camacho Aguilar on 07-04-2025 RBC (Bld) [#/Vol] 3.30 10*6/uL Low 4.2-5.4 [facility] White blood cell (WBC) count Ordered By: Camacho Aguilar on 07-04-2025 WBC (Bld) [#/Vol] 3.4 10*3/uL Low 4.4-11.0 [facility] Anion gap in Serum or Plasma Ordered By: Camacho Aguilar on 07-03-2025 Anion gap [Moles/Vol] 7 mmol/L - [facility] BUN/creatinine ratioOrdered By: Camacho Aguilar on 07-03-2025 Urea nitrogen/Creatinine [Mass ratio] 10.9 mg/mg - [facility] Basic Metabolic Profile (BMP )on 07-03-2025 BUN/CRE 10.9 RATIO Normal - [facility] Comment on above: Performed By: #### L 100.0100, L500.2500 ####[facility] [address] [place], [address] Calcium [Mass/Vol] 8.2 mg/dL Normal 7.6-11.0 [facility] Comment on above: Performed By: #### L 100.0100, L500.2500 ####[facility] [address] [place], [address] Chloride [Moles/Vol] 106 mmol/L Normal 98-108 [facility] Comment on above: Performed By: #### L 100.0100, L500.2500 ####[facility] [address] [place], [address] CO2 [Moles/Vol] 25.8 mmol/L Normal 21.0-32.0 [facility] Comment on above: Performed By: #### L 100.0100, L500.2500 ####[facility] [address] [place], [address] Creatinine [Mass/Vol] 0.91 mg/dL Normal 0.70-1.20 [facility] Comment on above: Performed By: #### L 100.0100, L500.2500 ####[facility] [address] [place], [address] ECRCL 47.46 ml/min Low 50-250 [facility] Comment on above: Performed By: #### L 100.0100, L500.2500 ####[facility] [address] [place], [address] GAP 7 Normal 5-15 [facility] Comment on above: Performed By: #### L 100.0100, L500.2500 ####[facility] [address] [place], [address] GFR/1.73 sq M.predicted among non-blacks MDRD (S/P/Bld) [Vol rate/Area] 67 mL/min/{1.73_m2} Normal >60 [facility] Comment on above: Result Comment: mL/m in/1.73m2 CKD-EPI Creatinine Equation (2020) Performed By: #### L 100.0100, L500.2500 ####[facility] [address] [place], [address] Glucose [Mass/Vol] 86 mg/dL Normal 70-99 [facility] Comment on above: Performed By: #### L 100.0100, L500.2500 ####[facility] [address] [place], [address] Potassium [Moles/Vol] 3.7 mmol/L Normal 3.3-5.1 [facility] Comment on above: Performed By: #### L 100.0100, L500.2500 ####[facility] [address] [place], [address] Sodium [Moles/Vol] 139 mmol/L Normal 133-145 [facility] Comment on above: Performed By: #### L 100.0100, L500.2500 ####[facility] [address] [place], [address] Urea nitrogen [Mass/Vol] 10 mg/dL Normal 4-19 [facility] Comment on above: Performed By: #### L 100.0100, L500.2500 ####[facility] [address] [place], [address] CBC W/Diff, Automatedon 06-22 2-2024 Absolute Lymph 1.42 X10 3/uL Normal 0.83-4.51 [facility] Comment on above: Performed By: #### L 100.0100, L500.2500 ####[facility] [address] [place], [address] Absolute Neut 1.3 X10 3/uL Low 2.0-7.7 [facility] Comment on above: Performed By: #### L 100.0100, L500.2500 ####[facility] [address] [place], [address] Basophils/100 WBC (Bld) 0.3 % Normal 0-1 [facility] Comment on above: Performed By: #### L 100.0100, L500.2500 ####[facility] [address] [place], [address] Eosinophils/100 WBC (Bld) 3.4 % Normal 0-5 [facility] Comment on above: Performed By: #### L 100.0100, L500.2500 ####[facility] [address] [place], [address] Erythrocyte distribution width (RBC) [Ratio] 13.4 % Normal 11.6-14.6 [facility] Comment on above: Performed By: #### L 100.0100, L500.2500 ####[facility] [address] [place], [address] Hematocrit (Bld) [Volume fraction] 28.7 % Low 37-47 [facility] Comment on above: Performed By: #### L 100.0100, L500.2500 ####[facility] [address] [place], [address] Hemoglobin (Bld) [Mass/Vol] 9.3 g/dL Low 12.0-15.0 [facility] Comment on above: Performed By: #### L 100.0100, L500.2500 ####[facility] [address] [place], [address] IG% 0.000 Normal 0.0-0.9 [facility] Comment on above: Result Comment: IG% - Immature Granulocytes (promyelocytes, myelocytes andmetamyelocytes) > 1% indicates that a LEFT SHIFT is Present. Performed By: #### L 100.0100, L500.2500 ####[facility] [address] [place], [address] Lymphocytes/100 WBC (Bld) 43.3 % High 19-41 [facility] Comment on above: Performed By: #### L 100.0100, L500.2500 ####[facility] [address] [place], [address] MCH (RBC) [Entitic mass] 30.1 pg Normal 27.0-32.0 [facility] Comment on above: Performed By: #### L 100.0100, L500.2500 ####[facility] [address] [place], [address] MCHC (RBC) [Mass/Vol] 32.4 g/dL Normal 32-36 [facility] Comment on above: Performed By: #### L 100.0100, L500.2500 ####[facility] [address] [place], [address] MCV (RBC) [Entitic vol] 92.9 fL Normal 81-99 [facility] Comment on above: Performed By: #### L 100.0100, L500.2500 ####[facility] [address] [place], [address] Monocytes/100 WBC (Bld) 13.1 % High 0-10 [facility] Comment on above: Performed By: #### L 100.0100, L500.2500 ####[facility] [address] [place], [address] Neutrophils/100 WBC (Bld) 39.9 % Low 47-70 [facility] Comment on above: Performed By: #### L 100.0100, L500.2500 ####[facility] [address] [place], [address] Nucleated RBC (Bld) [#/Vol] 0 10*3/uL Normal 0-5 [facility] Comment on above: Performed By: #### L 100.0100, L500.2500 ####[facility] [address] [place], [address] Platelet mean volume (Bld) [Entitic vol] 11.1 fL Normal 6.2-12.0 [facility] Comment on above: Performed By: #### L 100.0100, L500.2500 ####[facility] [address] [place], [address] Platelets (Bld) [#/Vol] 155 10*3/uL Normal 150-450 [facility] Comment on above: Performed By: #### L 100.0100, L500.2500 ####[facility] [address] [place], [address] RBC (Bld) [#/Vol] 3.09 10*6/uL Low 4.2-5.4 [facility] Comment on above: Performed By: #### L 100.0100, L500.2500 ####[facility] [address] [place], [address] RDW SD 45.5 fl High 35.1-43.9 [facility] Comment on above: Performed By: #### L 100.0100, L500.2500 ####[facility] [address] [place], [address] WBC (Bld) [#/Vol] 3.3 10*3/uL Low 4.4-11.0 [facility] Comment on above: Performed By: #### L 100.0100, L500.2500 ####[facility] [address] [place], [address] Carbon dioxide, total [Moles /volume] in Central venous bloodOrdered By: Camacho Aguilar on 07-03-2025 CO2 [Moles/Vol] 25.8 mmol/L 21.0-32.0 [facility] Chloride assayOrdered By: Tanya Aguilar on 07-03-2025 Chloride [Moles/Vol] 106 mmol/L 98-108 [facility] Glomerular filtration rate ( GFR) estimation/1.73 sq m using serum, plasma, or whole bOrdered By: Camacho Aguilar on 07-03-2025 GFR/1.73 sq M.predicted among non-blacks MDRD (S/P/Bld) [Vol rate/Area] 67 mL/min/{1.73_m2} >60 [facility] Potassium measurement (mass/ volume)Ordered By: Camacho Aguilar on 07-03-2025 Potassium (Unsp spec) [Mass/Vol] 3.7 mmol/L 3.3-5.1 [facility] Serum creatinine measurement (mass/volume)Ordered By: Camacho Aguilar on 07-03-2025 Creatinine [Mass/Vol] 0.91 mg/dL 0.70-1.20 [facility] Serum glucose measurement (m ass/volume)Ordered By: Camacho Aguilar on 07-03-2025 Glucose [Mass/Vol] 86 mg/dL 70-99 [facility] Serum or plasma calcium loco urement (mass/volume)Ordered By: Camacho Aguilar on 07-03-2025 Calcium [Mass/Vol] 8.2 mg/dL 7.6-11.0 [facility] Serum or plasma urea nitroge n measurement (mass/volume)Ordered By: Camacho Aguilar on 07-03-2025 Urea nitrogen [Mass/Vol] 10 mg/dL 4-19 [facility] Sodium levelOrdered By: Juan Aguilar on 07-03-2025 Sodium [Moles/Vol] 139 mmol/L 133-145 [facility] Electrocardiogram reportOrde red By: Danish Tavarez on 07-02-2025 EKG study [facility] Work Phone: Lead EKGon 07-01-2025 12 Lead EKG Normal [facility] Absolute lymphocyte countOrd ered By: Bossman Sanders on 07-01-2025 Lymphocytes Auto (Unsp spec) [#/Vol] 1.40 10*3/uL 0.83-4.51 [facility] Anion gap in Serum or Plasma Ordered By: Bossman Sanders on 07-01-2025 Anion gap [Moles/Vol] 8 mmol/L 5-15 [facility] Automated lymphocyte count a s percentage of total leukocytesOrdered By: Bossman Sanders on 07-01-2025 Lymphocytes/100 WBC Auto (Unsp spec) 34.9 % 19-41 [facility] BUN/creatinine ratioOrdered By: Bossman Sanders on 07-01-2025 Urea nitrogen/Creatinine [Mass ratio] 13.2 mg/mg - [facility] Basic Metabolic Profile (BMP )on 07-01-2025 BUN/CRE 13.2 RATIO Normal 09-10 [facility] Comment on above: Performed By: #### L 500.2500, L501.4021, L100.0100, L300.8000, L503.7505 ####[facility] [address] [place], [address] Calcium [Mass/Vol] 8.1 mg/dL Normal 7.6-11.0 [facility] Comment on above: Performed By: #### L 500.2500, L501.4021, L100.0100, L300.8000, L503.7505 ####[facility] [address] [place], [address] Chloride [Moles/Vol] 108 mmol/L Normal 98-108 [facility] Comment on above: Performed By: #### L 500.2500, L501.4021, L100.0100, L300.8000, L503.7505 ####[facility] [address] [place], [address] CO2 [Moles/Vol] 24.6 mmol/L Normal 21.0-32.0 [facility] Comment on above: Performed By: #### L 500.2500, L501.4021, L100.0100, L300.8000, L503.7505 ####[facility] [address] [place], [address] Creatinine [Mass/Vol] 0.90 mg/dL Normal 0.70-1.20 [facility] Comment on above: Performed By: #### L 500.2500, L501.4021, L100.0100, L300.8000, L503.7505 ####[facility] [address] [place], [address] ECRCL 50.57 ml/min Normal 50-250 [facility] Comment on above: Performed By: #### L 500.2500, L501.4021, L100.0100, L300.8000, L503.7505 ####[facility] [address] [place], [address] GAP 8 Normal 5-15 [facility] Comment on above: Performed By: #### L 500.2500, L501.4021, L100.0100, L300.8000, L503.7505 ####[facility] [address] [place], [address] GFR/1.73 sq M.predicted among non-blacks MDRD (S/P/Bld) [Vol rate/Area] 68 mL/min/{1.73_m2} Normal >60 [facility] Comment on above: Result Comment: mL/m in/1.73m2 CKD-EPI Creatinine Equation (2020) Performed By: #### L 500.2500, L501.4021, L100.0100, L300.8000, L503.7505 ####[facility] [address] [place], [address] Glucose [Mass/Vol] 100 mg/dL High 70-99 [facility] Comment on above: Performed By: #### L 500.2500, L501.4021, L100.0100, L300.8000, L503.7505 ####[facility] [address] [place], [address] Potassium [Moles/Vol] 3.6 mmol/L Normal 3.3-5.1 [facility] Comment on above: Performed By: #### L 500.2500, L501.4021, L100.0100, L300.8000, L503.7505 ####[facility] [address] [place], [address] Sodium [Moles/Vol] 140 mmol/L Normal 133-145 [facility] Comment on above: Performed By: #### L 500.2500, L501.4021, L100.0100, L300.8000, L503.7505 ####[facility] [address] [place], [address] Urea nitrogen [Mass/Vol] 12 mg/dL Normal 4-19 [facility] Comment on above: Performed By: #### L 500.2500, L501.4021, L100.0100, L300.8000, L503.7505 ####[facility] [address] [place], [address] Basophil percentageOrdered B y: Bossman Ungko on 07-01-2024 Basophils/100 WBC (Bld) 0.5 % 0-1 [facility] CBC W/Diff, Automatedon 06-22 0-2024 Absolute Lymph 1.40 X10 3/uL Normal 0.83-4.51 [facility] Comment on above: Performed By: #### L 500.2500, L501.4021, L100.0100, L300.8000, L503.7505 ####[facility] [address] [place], [address] Absolute Neut 2.0 X10 3/uL Normal 2.0-7.7 [facility] Comment on above: Performed By: #### L 500.2500, L501.4021, L100.0100, L300.8000, L503.7505 ####[facility] [address] [place], [address] Basophils/100 WBC (Bld) 0.5 % Normal 0-1 [facility] Comment on above: Performed By: #### L 500.2500, L501.4021, L100.0100, L300.8000, L503.7505 ####[facility] [address] [place], [address] Eosinophils/100 WBC (Bld) 2.0 % Normal 0-5 [facility] Comment on above: Performed By: #### L 500.2500, L501.4021, L100.0100, L300.8000, L503.7505 ####[facility] [address] [place], [address] Erythrocyte distribution width (RBC) [Ratio] 13.2 % Normal 11.6-14.6 [facility] Comment on above: Performed By: #### L 500.2500, L501.4021, L100.0100, L300.8000, L503.7505 ####[facility] [address] [place], [address] Hematocrit (Bld) [Volume fraction] 31.8 % Low 37-47 [facility] Comment on above: Performed By: #### L 500.2500, L501.4021, L100.0100, L300.8000, L503.7505 ####[facility] [address] [place], [address] Hemoglobin (Bld) [Mass/Vol] 10.3 g/dL Low 12.0-15.0 [facility] Comment on above: Performed By: #### L 500.2500, L501.4021, L100.0100, L300.8000, L503.7505 ####[facility] [address] [place], [address] IG% 0.200 Normal 0.0-0.9 [facility] Comment on above: Result Comment: IG% - Immature Granulocytes (promyelocytes, myelocytes andmetamyelocytes) > 1% indicates that a LEFT SHIFT is Present. Performed By: #### L 500.2500, L501.4021, L100.0100, L300.8000, L503.7505 ####[facility] [address] [place], [address] Lymphocytes/100 WBC (Bld) 34.9 % Normal 19-41 [facility] Comment on above: Performed By: #### L 500.2500, L501.4021, L100.0100, L300.8000, L503.7505 ####[facility] [address] [place], [address] MCH (RBC) [Entitic mass] 29.8 pg Normal 27.0-32.0 [facility] Comment on above: Performed By: #### L 500.2500, L501.4021, L100.0100, L300.8000, L503.7505 ####[facility] [address] [place], [address] MCHC (RBC) [Mass/Vol] 32.4 g/dL Normal 32-36 [facility] Comment on above: Performed By: #### L 500.2500, L501.4021, L100.0100, L300.8000, L503.7505 ####[facility] [address] [place], [address] MCV (RBC) [Entitic vol] 91.9 fL Normal 81-99 [facility] Comment on above: Performed By: #### L 500.2500, L501.4021, L100.0100, L300.8000, L503.7505 ####[facility] [address] [place], [address] Monocytes/100 WBC (Bld) 13.2 % High 0-10 [facility] Comment on above: Performed By: #### L 500.2500, L501.4021, L100.0100, L300.8000, L503.7505 ####[facility] [address] [place], [address] Neutrophils/100 WBC (Bld) 49.2 % Normal 47-70 [facility] Comment on above: Performed By: #### L 500.2500, L501.4021, L100.0100, L300.8000, L503.7505 ####[facility] [address] [place], [address] Nucleated RBC (Bld) [#/Vol] 0 10*3/uL Normal 0-5 [facility] Comment on above: Performed By: #### L 500.2500, L501.4021, L100.0100, L300.8000, L503.7505 ####[facility] [address] [place], [address] Platelet mean volume (Bld) [Entitic vol] 10.6 fL Normal 6.2-12.0 [facility] Comment on above: Performed By: #### L 500.2500, L501.4021, L100.0100, L300.8000, L503.7505 ####[facility] [address] [place], [address] Platelets (Bld) [#/Vol] 192 10*3/uL Normal 150-450 [facility] Comment on above: Performed By: #### L 500.2500, L501.4021, L100.0100, L300.8000, L503.7505 ####[facility] [address] [place], [address] RBC (Bld) [#/Vol] 3.46 10*6/uL Low 4.2-5.4 [facility] Comment on above: Performed By: #### L 500.2500, L501.4021, L100.0100, L300.8000, L503.7505 ####[facility] [address] [place], [address] RDW SD 44.8 fl High 35.1-43.9 [facility] Comment on above: Performed By: #### L 500.2500, L501.4021, L100.0100, L300.8000, L503.7505 ####[facility] [address] [place], [address] WBC (Bld) [#/Vol] 4.0 10*3/uL Low 4.4-11.0 [facility] Comment on above: Performed By: #### L 500.2500, L501.4021, L100.0100, L300.8000, L503.7505 ####[facility] [address] [place], [address] CTA Chest W/WO Contraston CTA Chest W/WO Contrast Normal [facility] Carbon dioxide, total [Moles /volume] in Central venous bloodOrdered By: Bossman Sanders on 07-01-2025 CO2 [Moles/Vol] 24.6 mmol/L 21.0-32.0 [facility] Chest 1 View (Portable)on Chest 1 View (Portable) Normal [facility] Chloride assayOrdered By: Tami Sanders on 07-01-2025 Chloride [Moles/Vol] 108 mmol/L 98-108 [facility] D-Dimer Quantitative (DVT/PE )on 07-01-2025 D-DIMER QUANT 1.39 FEU/ug/m Invalid Interpretation Code 0.27-0.49 [facility] Comment on above: Result Comment: [facility] 1732 Bruna Ambrocio.RESULTS READ BACK BY SAME.D-Dimer ELEVATED (>0.49): Additional studies and clinicalassessments are indicated to conclude diagnosis of:Deep Vein Thrombosis (DVT) or Pulmonary Embolism (PE) Performed By: #### L 500.2500, L501.4021, L100.0100, L300.8000, L503.7505 ####[facility] [address] [place], [address] Emergency Department Summary on 07-01-2025 Emergency Department Summary Normal [facility] Eosinophil percentageOrdered By: Bossman Sanders on 07-01-2025 Eosinophils/100 WBC (Bld) 2.0 % 0-5 [facility] Erythrocyte distribution wid th ratioOrdered By: Bossman Sanders on 07-01-2025 Erythrocyte distribution width (RBC) [Ratio] 13.2 % 11.6-14.6 [facility] Erythrocyte distribution wid th standard deviationOrdered By: Bosmsan Sanders on 07-01-2025 Erythrocyte distribution width (RBC) [Ratio] 44.8 fl High 35.1-43.9 [facility] Glomerular filtration rate ( GFR) estimation/1.73 sq m using serum, plasma, or whole bOrdered By: Bossman Sanders on 08-10-2025 GFR/1.73 sq M.predicted among non-blacks MDRD (S/P/Bld) [Vol rate/Area] 68 mL/min/{1.73_m2} >60 [facility] H AND P Exam - Hospitaliston 07-01-2025 H&P Exam - Hospitalist Normal [facility] Hematocrit Auto (Bld) [Volum e fraction]Ordered By: [place] Marilyn on 07-01-2025 Hematocrit (Bld) [Volume fraction] 31.8 % Low 37-47 [facility] Hemoglobin measurementOrdere d By: Beebe Healthcareko on 07-01-2025 Hemoglobin (Bld) [Mass/Vol] 10.3 g/dL Low 12.0-15.0 [facility] Immature granulocytes/100 WB C Auto (Bld)Ordered By: Beebe Healthcareko on 07-01-2025 Immature granulocytes/100 WBC (Bld) 0.200 % 0.0-0.9 [facility] L501.4021on 07-01-2025 Trop T High Sen 11 ng/L Normal <=14 [facility] Comment on above: Performed By: #### L 500.2500, L501.4021, L100.0100, L300.8000, L503.7505 ####[facility] [address] [place], [place], [address] MCV (mean corpuscular volume ) determinationOrdered By: Beebe Healthcareko on 07-01-2025 MCV (RBC) [Entitic vol] 91.9 fL 81-99 [facility] Mean corpuscular hemoglobin (MCH) determinationOrdered By: Beebe Healthcareko on 07-01-2025 MCH (RBC) [Entitic mass] 29.8 pg 27.0-32.0 [facility] Monocyte percentageOrdered B y: Beebe Healthcareko on 07-01-2025 Monocytes/100 WBC (Bld) 13.2 % High 0-10 [facility] Natriuretic peptide.B prohor guillermina N-Terminal [Mass/volume] in Serum or PlasmaOrdered By: Ltac, [facility]ated [facility] on 07-01-2025 Natriuretic peptide.B prohormone N-Terminal [Mass/Vol] 948 pg/mL High <900 [facility] Neutrophil percentageOrdered By: Bossman Sanders on 07-01-2025 Neutrophils/100 WBC (Bld) 49.2 % 47-70 [facility] Platelet countOrdered By: Tami Sanders on 07-01-2025 Platelets (Bld) [#/Vol] 192 10*3/uL 150-450 [facility] Potassium measurement (mass/ volume)Ordered By: Bossman Sanders on 07-01-2025 Potassium (Unsp spec) [Mass/Vol] 3.6 mmol/L 3.3-5.1 [facility] Pro- Brain NATRIURETIC PEPTI Ingrid 07-01-2025 Natriuretic peptide B (Bld) [Mass/Vol] 948 pg/mL High <=900 [facility] Comment on above: Result Comment: Hear t Failure Unlikely: < 300 pg/mLHeart Failure Likely< 50 Years: > 450 pg/mL50-75 Years: > 900 pg/mL>75 Years: > 1800 pg/mL Performed By: #### L 500.2500, L501.4021, L100.0100, L300.8000, L503.7505 ####[facility] [address] [place], [address] RBC Auto (Bld) [#/Vol]Ordere d By: Bossman Sanders on 07-01-2025 RBC (Bld) [#/Vol] 3.46 10*6/uL Low 4.2-5.4 [facility] Serum creatinine measurement (mass/volume)Ordered By: Bossman Sanders on 07-01-2025 Creatinine [Mass/Vol] 0.90 mg/dL 0.70-1.20 [facility] Serum glucose measurement (m ass/volume)Ordered By: Bossman Sanders on 07-01-2025 Glucose [Mass/Vol] 100 mg/dL High 70-99 [facility] Serum or plasma calcium loco urement (mass/volume)Ordered By: Bossman Sanders on 07-01-2025 Calcium [Mass/Vol] 8.1 mg/dL 7.6-11.0 [facility] Serum or plasma urea nitroge n measurement (mass/volume)Ordered By: Bossman Sanders on 07-01-2025 Urea nitrogen [Mass/Vol] 12 mg/dL 4-19 [facility] Sodium levelOrdered By: Conrad Sanders on 07-01-2025 Sodium [Moles/Vol] 140 mmol/L 133-145 [facility] Troponin T HS 2 HRon 025 Trop T High Sen 12 ng/L Normal <=14 [facility] Comment on above: Performed By: #### L 499.0042 ####[facility] [address] [place], [place], [address] Troponin T HS 4 HRon 025 Trop T High Sen 15 ng/L High <=14 [facility] Comment on above: Performed By: #### L 499.0043 ####[facility] [address] [place], [address] Troponin T.cardiac [Mass/vol ume] in Serum or Plasma by High sensitivity methodOrdered By: Bossman Sanders on 07-01-2025 Troponin T.cardiac High sensitivity method [Mass/Vol] 15 ng/L High <14 [facility] Troponin T.cardiac High sensitivity method [Mass/Vol] 12 ng/L <14 [facility] Troponin T.cardiac High sensitivity method [Mass/Vol] 11 ng/L <14 [facility] White blood cell (WBC) count Ordered By: Bossman Sanders on 07-01-2025 WBC (Bld) [#/Vol] 4.0 10*3/uL Low 4.4-11.0 [facility] CNOVon 06-29-2025 CNOV Office Visit (PASCALEN) MANSI CARO ([id number]) 1955 F Date Time Provider Department 06/29/25 11:00 AM CECILIA OWENS During your visit today, we recorded the following information about you: Weight Height 55.9 kg 1.727 m Cecilia Owens APRN.RANGER AIDE 06/29/2025 4:44 PM Signed [facility] - FOLLOW UP EVALUATION Primary [facility] Disorders Neurologist: Leyla Murphy MD [facility] RICARDO: Marci Lopez DO [address] [place] [address] Dear Marci Lopez DO: I had the pleasure of seeing Ms. Caro for follow-up today. As you know she is a 70 year old right-handed female with a history of left hand tremor since 2021. She is seen with her . Subjective Previous Plan- 02/27/2025 Visit: - Start taking Ingrezza 40 mg daily for mouth movements; prescription sent to [facility]. Once this is controlled [...] today. She was in the hospital in [place] for pneumonia in February. Looking into long [...] Jose RN Current Outpatient Medications Medication Sig ondansetron orally [...] needed. traZODone (more content not included)... 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 [facility] intake team is not able [...] that you may need to travel to [place] multiple times to get all testing done and see the consulted specialist(s). Please arrive 15 minutes early to your appointment. If you are more than 10 minutes late to your appointment you may be asked to reschedule. One week prior to your appointment you should pre-check in via [facility] to complete questionnaires that will provide valuable information to your provider to aid in your visit. You may receive a telephone call to remind you if we see they have not been completed in advance of your visit. If you have outside testing you would like to be entered into your chart, please fax it to [phone]. Records brought in same day of visit may not be reviewed until after the visit due to time constraints. *FYI Current [facility] states are [place], [place], [place], and [place] as of 03/2025. This means patients can [...] - Fully Assessed Reason for Visit: Intake [[id number]] Cmt: [facility] pre-visit phone call Prescriptions as of 06/29/2025 [...] albuterol edmond (more content not included)... Normal [facility] 36on 06-16-2025 36 S: Patient's home health [...] weeks) Protocols used: Abdominal Pain - ADULT- Normal [facility] Absolute lymphocyte countOrd ered By: Ganesh Kiran on 06-11-2025 Lymphocytes Auto (Unsp spec) [#/Vol] 0.89 10*3/uL 0.83-4.51 [facility] Anion gap in Serum or Plasma Ordered By: Ganesh Kiran on 06-11-2025 Anion gap [Moles/Vol] 8 mmol/L 5-15 [facility] Automated lymphocyte count a s percentage of total leukocytesOrdered By: Ganesh Kiran on 06-11-2025 Lymphocytes/100 WBC Auto (Unsp spec) 23.2 % - [facility] BUN/creatinine ratioOrdered By: Ganesh Kiran on 06-11-2025 Urea nitrogen/Creatinine [Mass ratio] 13.8 mg/mg - [facility] Basic Metabolic Profile (BMP )on 06-11-2025 BUN/CRE 13.8 RATIO Normal 09-10 [facility] Comment on above: Performed By: #### L 500.2500, L100.0100 ####[facility] [address] [place], [address] Calcium [Mass/Vol] 8.5 mg/dL Normal 7.6-11.0 [facility] Comment on above: Performed By: #### L 500.2500, L100.0100 ####[facility] [address] [place], [address] Chloride [Moles/Vol] 106 mmol/L Normal 98-108 [facility] Comment on above: Performed By: #### L 500.2500, L100.0100 ####[facility] [address] [place], [address] CO2 [Moles/Vol] 25.8 mmol/L Normal 21.0-32.0 [facility] Comment on above: Performed By: #### L 500.2500, L100.0100 ####[facility] [address] [place], [address] Creatinine [Mass/Vol] 0.97 mg/dL Normal 0.70-1.20 [facility] Comment on above: Performed By: #### L 500.2500, L100.0100 ####[facility] [address] [place], [address] ECRCL 48.17 ml/min Low 50-250 [facility] Comment on above: Performed By: #### L 500.2500, L100.0100 ####[facility] [address] [place], [address] GAP 8 Normal 5-15 [facility] Comment on above: Performed By: #### L 500.2500, L100.0100 ####[facility] [address] [place], [address] GFR/1.73 sq M.predicted among non-blacks MDRD (S/P/Bld) [Vol rate/Area] 62 mL/min/{1.73_m2} Normal >60 [facility] Comment on above: Result Comment: mL/m in/1.73m2 CKD-EPI Creatinine Equation (2020) Performed By: #### L 500.2500, L100.0100 ####[facility] [address] [place], [address] Glucose [Mass/Vol] 126 mg/dL High 70-99 [facility] Comment on above: Performed By: #### L 500.2500, L100.0100 ####[facility] [address] [place], [address] Potassium [Moles/Vol] 4.0 mmol/L Normal 3.3-5.1 [facility] Comment on above: Performed By: #### L 500.2500, L100.0100 ####[facility] [address] [place], [address] Sodium [Moles/Vol] 140 mmol/L Normal 133-145 [facility] Comment on above: Performed By: #### L 500.2500, L100.0100 ####[facility] [address] [place], [address] Urea nitrogen [Mass/Vol] 13 mg/dL Normal 4-19 [facility] Comment on above: Performed By: #### L 500.2500, L100.0100 ####[facility] [address] [place], [address] Basophil percentageOrdered B y: Ganesh Magno on 06-11-2025 Basophils/100 WBC (Bld) 0.3 % 0-1 [facility] CBC W/Diff, Automatedon 05-23 Absolute Lymph 0.89 X10 3/uL Normal 0.83-4.51 [facility] Comment on above: Performed By: #### L 500.2500, L100.0100 ####[facility] [id number] [place], [address] Absolute Neut 2.3 X10 3/uL Normal 2.0-7.7 [facility] Comment on above: Performed By: #### L 500.2500, L100.0100 ####[facility] [address] [place], [address] Basophils/100 WBC (Bld) 0.3 % Normal 0-1 [facility] Comment on above: Performed By: #### L 500.2500, L100.0100 ####[facility] [address] [place], [address] Eosinophils/100 WBC (Bld) 4.7 % Normal 0-5 [facility] Comment on above: Performed By: #### L 500.2500, L100.0100 ####[facility] [address] [place], [address] Erythrocyte distribution width (RBC) [Ratio] 13.6 % Normal 11.6-14.6 [facility] Comment on above: Performed By: #### L 500.2500, L100.0100 ####[facility] [address] [place], [address] Hematocrit (Bld) [Volume fraction] 31.4 % Low 37-47 [facility] Comment on above: Performed By: #### L 500.2500, L100.0100 ####[facility] [address] [place], [address] Hemoglobin (Bld) [Mass/Vol] 9.8 g/dL Low 12.0-15.0 [facility] Comment on above: Performed By: #### L 500.2500, L100.0100 ####[facility] [address] [place], [address] IG% 0.300 Normal 0.0-0.9 [facility] Comment on above: Result Comment: IG% - Immature Granulocytes (promyelocytes, myelocytes andmetamyelocytes) > 1% indicates that a LEFT SHIFT is Present. Performed By: #### L 500.2500, L100.0100 ####[facility] [address] [place], [address] Lymphocytes/100 WBC (Bld) 23.2 % Normal 19-41 [facility] Comment on above: Performed By: #### L 500.2500, L100.0100 ####[facility] [address] [place], [address] MCH (RBC) [Entitic mass] 30.1 pg Normal 27.0-32.0 [facility] Comment on above: Performed By: #### L 500.2500, L100.0100 ####[facility] [address] [place], [address] MCHC (RBC) [Mass/Vol] 31.2 g/dL Low 32-36 [facility] Comment on above: Performed By: #### L 500.2500, L100.0100 ####[facility] [address] [place], [address] MCV (RBC) [Entitic vol] 96.3 fL Normal 81-99 [facility] Comment on above: Performed By: #### L 500.2500, L100.0100 ####[facility] [address] [place], [address] Monocytes/100 WBC (Bld) 11.5 % High 0-10 [facility] Comment on above: Performed By: #### L 500.2500, L100.0100 ####[facility] [address] [place], [address] Neutrophils/100 WBC (Bld) 60.0 % Normal 47-70 [facility] Comment on above: Performed By: #### L 500.2500, L100.0100 ####[facility] [address] [place], [address] Nucleated RBC (Bld) [#/Vol] 0 10*3/uL Normal 0-5 [facility] Comment on above: Performed By: #### L 500.2500, L100.0100 ####[facility] [address] [place], [address] Platelet mean volume (Bld) [Entitic vol] 10.1 fL Normal 6.2-12.0 [facility] Comment on above: Performed By: #### L 500.2500, L100.0100 ####[facility] [address] [place], [address] Platelets (Bld) [#/Vol] 186 10*3/uL Normal 150-450 [facility] Comment on above: Performed By: #### L 500.2500, L100.0100 ####[facility] [address] [place], [address] RBC (Bld) [#/Vol] 3.26 10*6/uL Low 4.2-5.4 [facility] Comment on above: Performed By: #### L 500.2500, L100.0100 ####[facility] [address] [place], [address] RDW SD 48.7 fl High 35.1-43.9 [facility] Comment on above: Performed By: #### L 500.2500, L100.0100 ####[facility] [address] [place], [address] WBC (Bld) [#/Vol] 3.8 10*3/uL Low 4.4-11.0 [facility] Comment on above: Performed By: #### L 500.2500, L100.0100 ####[facility] [address] [place], [address] Carbon dioxide, total [Moles /volume] in Central venous bloodOrdered By: Ganesh Kiran on 06-11-2025 CO2 [Moles/Vol] 25.8 mmol/L 21.0-32.0 [facility] Chloride assayOrdered By: Rick Kiran on 06-11-2025 Chloride [Moles/Vol] 106 mmol/L 98-108 [facility] Discharge Instructionon 05-23 Discharge Instruction Normal [facility] Eosinophil percentageOrdered By: Ganesh Kiran on 06-11-2025 Eosinophils/100 WBC (Bld) 4.7 % 0-5 [facility] Erythrocyte distribution wid th ratioOrdered By: Ganesh Kiran on 06-11-2025 Erythrocyte distribution width (RBC) [Ratio] 13.6 % 11.6-14.6 [facility] Erythrocyte distribution wid th standard deviationOrdered By: Ganesh Kiran on 06-11-2025 Erythrocyte distribution width (RBC) [Ratio] 48.7 fl High 35.1-43.9 [facility] Glomerular filtration rate ( GFR) estimation/1.73 sq m using serum, plasma, or whole bOrdered By: Ganesh Kiran on 06-11-2025 GFR/1.73 sq M.predicted among non-blacks MDRD (S/P/Bld) [Vol rate/Area] 62 mL/min/{1.73_m2} >60 [facility] Hematocrit Auto (Bld) [Volum e fraction]Ordered By: Ganesh Kiran on 06-11-2025 Hematocrit (Bld) [Volume fraction] 31.4 % Low 37-47 [facility] Hemoglobin measurementOrdere d By: Ganesh Kiran on 06-11-2025 Hemoglobin (Bld) [Mass/Vol] 9.8 g/dL Low 12.0-15.0 [facility] Immature granulocytes/100 WB C Auto (Bld)Ordered By: Ganesh Kiran on 06-11-2025 Immature granulocytes/100 WBC (Bld) 0.300 % 0.0-0.9 [facility] MCV (mean corpuscular volume ) determinationOrdered By: Ganesh Kiran on 06-11-2025 MCV (RBC) [Entitic vol] 96.3 fL 81-99 [facility] Mean corpuscular hemoglobin (MCH) determinationOrdered By: Ganesh Kiran on 06-11-2025 MCH (RBC) [Entitic mass] 30.1 pg 27.0-32.0 [facility] Monocyte percentageOrdered B y: Ganesh Kiran on 06-11-2025 Monocytes/100 WBC (Bld) 11.5 % High 0-10 [facility] Neutrophil percentageOrdered By: Ganesh Kiran on 06-11-2025 Neutrophils/100 WBC (Bld) 60.0 % 47-70 [facility] Platelet countOrdered By: Rick Kiran on 06-11-2025 Platelets (Bld) [#/Vol] 186 10*3/uL 150-450 [facility] Potassium measurement (mass/ volume)Ordered By: Ganesh Kiran on 06-11-2025 Potassium (Unsp spec) [Mass/Vol] 4.0 mmol/L 3.3-5.1 [facility] RBC Auto (Bld) [#/Vol]Ordere d By: Ganesh Kiran on 06-11-2025 RBC (Bld) [#/Vol] 3.26 10*6/uL Low 4.2-5.4 [facility] Serum creatinine measurement (mass/volume)Ordered By: Ganesh Kiran on 06-11-2025 Creatinine [Mass/Vol] 0.97 mg/dL 0.70-1.20 [facility] Serum glucose measurement (m ass/volume)Ordered By: Ganesh Kiran on 06-11-2025 Glucose [Mass/Vol] 126 mg/dL High 70-99 [facility] Serum or plasma calcium loco urement (mass/volume)Ordered By: Ganesh Kiran on 06-11-2025 Calcium [Mass/Vol] 8.5 mg/dL 7.6-11.0 [facility] Serum or plasma urea nitroge n measurement (mass/volume)Ordered By: Ganesh Kiran on 06-11-2025 Urea nitrogen [Mass/Vol] 13 mg/dL 4-19 [facility] Sodium levelOrdered By: Pari Kiran on 06-11-2025 Sodium [Moles/Vol] 140 mmol/L 133-145 [facility] White blood cell (WBC) count Ordered By: Ganesh Kiran on 06-11-2025 WBC (Bld) [#/Vol] 3.8 10*3/uL Low 4.4-11.0 [facility] 36on 06-09-2025 36 Name of caller Mirlande Contact phone number: [phone] Relationship to Patient: spouse/[place] Provider: Dr. Marci Lopez Practice: [facility] Chief Complaint/Reason for Call: The patient , Song, states his might be released from [facility] on 06-09-2025. Also, the covering doctor at the hospital states the patient might have psychiatrist issues with 8 other things wrong with her. The patient will be discharged to [facility] in [place]. Please call the patient at [phone] to advise Best time of day caller can be reached: Anytime Patient advised that office/PCP has 24-48 business hours to return their call: Yes Normal [facility] Basic Metabolic Profile (BMP )on 06-08-2025 BUN/CRE 13.6 RATIO Normal 10-20 [facility] Comment on above: Performed By: #### L 500.2500, L100.0100 ####[facility] [address] [place], [address] Calcium [Mass/Vol] 8.6 mg/dL Normal 7.6-11.0 [facility] Comment on above: Performed By: #### L 500.2500, L100.0100 ####[facility] [address] [place], [address] Chloride [Moles/Vol] 102 mmol/L Normal 98-108 [facility] Comment on above: Performed By: #### L 500.2500, L100.0100 ####[facility] [address] [place], [address] CO2 [Moles/Vol] 25.9 mmol/L Normal 21.0-32.0 [facility] Comment on above: Performed By: #### L 500.2500, L100.0100 ####[facility] [address] [place], [address] Creatinine [Mass/Vol] 0.98 mg/dL Normal 0.70-1.20 [facility] Comment on above: Performed By: #### L 500.2500, L100.0100 ####[facility] [address] [place], [address] ECRCL 47.68 ml/min Low 50-250 [facility] Comment on above: Performed By: #### L 500.2500, L100.0100 ####[facility] [address] [place], [address] GAP 9 Normal 5-15 [facility] Comment on above: Performed By: #### L 500.2500, L100.0100 ####[facility] [address] [place], [address] GFR/1.73 sq M.predicted among non-blacks MDRD (S/P/Bld) [Vol rate/Area] 61 mL/min/{1.73_m2} Normal >60 [facility] Comment on above: Result Comment: mL/m in/1.73m2 CKD-EPI Creatinine Equation (2020) Performed By: #### L 500.2500, L100.0100 ####[facility] [address] [place], [address] Glucose [Mass/Vol] 115 mg/dL High 70-99 [facility] Comment on above: Performed By: #### L 500.2500, L100.0100 ####[facility] [address] [place], [address] Potassium [Moles/Vol] 4.4 mmol/L Normal 3.3-5.1 [facility] Comment on above: Performed By: #### L 500.2500, L100.0100 ####[facility] [address] [place], [address] Sodium [Moles/Vol] 136 mmol/L Normal 133-145 [facility] Comment on above: Performed By: #### L 500.2500, L100.0100 ####[facility] [address] [place], [address] Urea nitrogen [Mass/Vol] 13 mg/dL Normal 4-19 [facility] Comment on above: Performed By: #### L 500.2500, L100.0100 ####[facility] [address] [place], [address] CBC W/Diff, Automatedon 05-22 Absolute Lymph 0.95 X10 3/uL Normal 0.83-4.51 [facility] Comment on above: Performed By: #### L 500.2500, L100.0100 ####[facility] [address] [place], [address] Absolute Neut 2.2 X10 3/uL Normal 2.0-7.7 [facility] Comment on above: Performed By: #### L 500.2500, L100.0100 ####[facility] [address] [place], [address] Basophils/100 WBC (Bld) 0.3 % Normal 0-1 [facility] Comment on above: Performed By: #### L 500.2500, L100.0100 ####[facility] [address] [place], [address] Eosinophils/100 WBC (Bld) 0.0 % Normal 0-5 [facility] Comment on above: Performed By: #### L 500.2500, L100.0100 ####[facility] [address] [place], [address] Erythrocyte distribution width (RBC) [Ratio] 13.3 % Normal 11.6-14.6 [facility] Comment on above: Performed By: #### L 500.2500, L100.0100 ####[facility] [address] [place], [address] Hematocrit (Bld) [Volume fraction] 30.5 % Low 37-47 [facility] Comment on above: Performed By: #### L 500.2500, L100.0100 ####[facility] [address] [place], [address] Hemoglobin (Bld) [Mass/Vol] 10.0 g/dL Low 12.0-15.0 [facility] Comment on above: Performed By: #### L 500.2500, L100.0100 ####[facility] [address] [place], [address] IG% 0.300 Normal 0.0-0.9 [facility] Comment on above: Result Comment: IG% - Immature Granulocytes (promyelocytes, myelocytes andmetamyelocytes) > 1% indicates that a LEFT SHIFT is Present. Performed By: #### L 500.2500, L100.0100 ####[facility] [address] [place], [address] Lymphocytes/100 WBC (Bld) 26.4 % Normal 19-41 [facility] Comment on above: Performed By: #### L 500.2500, L100.0100 ####[facility] [address] [place], [address] MCH (RBC) [Entitic mass] 30.5 pg Normal 27.0-32.0 [facility] Comment on above: Performed By: #### L 500.2500, L100.0100 ####[facility] [address] [place], [address] MCHC (RBC) [Mass/Vol] 32.8 g/dL Normal 32-36 [facility] Comment on above: Performed By: #### L 500.2500, L100.0100 ####[facility] [address] [place], [address] MCV (RBC) [Entitic vol] 93.0 fL Normal 81-99 [facility] Comment on above: Performed By: #### L 500.2500, L100.0100 ####[facility] [address] [place], [address] Monocytes/100 WBC (Bld) 11.9 % High 0-10 [facility] Comment on above: Performed By: #### L 500.2500, L100.0100 ####[facility] [address] [place], [address] Neutrophils/100 WBC (Bld) 61.1 % Normal 47-70 [facility] Comment on above: Performed By: #### L 500.2500, L100.0100 ####[facility] [address] [place], [address] Nucleated RBC (Bld) [#/Vol] 0 10*3/uL Normal 0-5 [facility] Comment on above: Performed By: #### L 500.2500, L100.0100 ####[facility] [address] [place], [address] Platelet mean volume (Bld) [Entitic vol] 10.3 fL Normal 6.2-12.0 [facility] Comment on above: Performed By: #### L 500.2500, L100.0100 ####[facility] [address] [place], [address] Platelets (Bld) [#/Vol] 232 10*3/uL Normal 150-450 [facility] Comment on above: Performed By: #### L 500.2500, L100.0100 ####[facility] [address] [place], [address] RBC (Bld) [#/Vol] 3.28 10*6/uL Low 4.2-5.4 [facility] Comment on above: Performed By: #### L 500.2500, L100.0100 ####[facility] [address] [place], [address] RDW SD 45.3 fl High 35.1-43.9 [facility] Comment on above: Performed By: #### L 500.2500, L100.0100 ####[facility] [address] [place], [address] WBC (Bld) [#/Vol] 3.6 10*3/uL Low 4.4-11.0 [facility] Comment on above: Performed By: #### L 500.2500, L100.0100 ####[facility] [address] [place], [address] Celiac Disease Profileon ENDOMYSIAL IGA Negative Normal Negative [facility] Comment on above: Performed By: #### L 3410.2400 ####[facility] [address] [place], [address] IMMUNOGLOB A QN 350 mg/dL Normal 64-422 [facility] Comment on above: Result Comment: Perf ormed at: - [facility] [id number] Director: Bulmaro Nesbitt PhD, Phone: [phone] Performed By: #### L 3410.2400 ####[facility] [address] [place], [place], [id number] tTG IGA <2 Normal 0-3 [facility] Comment on above: Result Comment: Nega tive 0 - 3 Weak Positive 4 - 10 Positive >10 Tissue Transglutaminase (tTG) has been identified as the endomysial antigen. Studies have demonstr- ated that endomysial IgA antibodies have over 99% specificity for gluten sensitive enteropathy. Performed By: #### L 3410.2400 ####[facility] [address] [place], [place], [address] Bedside Glucoseon 06-07-2025 FINGERSTICK GLU 101 mg/dL Normal 74-106 [facility] Comment on above: Result Comment: TORRES FRANKLIN OF PATIENT CARE PER NURSING PROTOCOL Performed By: #### L 501.080 ####[facility] [address] [place], [place], [address] Culture, Blood (WB)on 2024 CUB Blood cultures x2, from two different sites No growth in 5 days. Normal [facility] Comment on above: Performed By: #### M 200.1000 ####[facility] [address] [place], [place], [address] EGD Reporton 06-07-2025 EGD Report Normal [facility] deOrdered By: Ganesh Kiran on 06-07-2025 Glucose [Mass/Vol] 101 mg/dL 74-106 [facility] MR/CON.PCM.GIon 06-07-2025 MR/CON.PCM.GI Normal [facility] MR/POSTOP.ANEon 06-07-2025 MR/POSTOP.ANE Normal [facility] MR/[id number] 06-07-2025 MR/POSTOPAN2 Normal [facility] Discharge Instructionon 05-22 Discharge Instruction Normal [facility] Serum or plasma IgA measurem ent (mass/volume)Ordered By: Ben Johnson on 06-05-2025 IgA [Mass/Vol] 350 mg/dL 64-422 [facility] Serum tissue transglutaminas e (tTG) IgA antibody assay (units/volume)Ordered By: Ben Johnson on 06-05-2025 tTG IgA Qn (S) <2 U/mL 0-3 [facility] Bedside Glucoseon 06-04-2025 FINGERSTICK GLU 140 mg/dL High 74-106 [facility] Comment on above: Result Comment: TORRES FRANKLIN OF PATIENT CARE PER NURSING PROTOCOL Performed By: #### L 501.080 ####[facility] [address] [place], [address] CBC W/Diff, Automatedon 05-22 Absolute Lymph 1.59 X10 3/uL Normal 0.83-4.51 [facility] Comment on above: Performed By: #### L 100.0100 ####[facility] [address] [place], [address] Absolute Neut 4.1 X10 3/uL Normal 2.0-7.7 [facility] Comment on above: Performed By: #### L 100.0100 ####[facility] [address] [place], [address] Basophils/100 WBC (Bld) 0.5 % Normal 0-1 [facility] Comment on above: Performed By: #### L 100.0100 ####[facility] [address] [place], [address] Eosinophils/100 WBC (Bld) 1.3 % Normal 0-5 [facility] Comment on above: Performed By: #### L 100.0100 ####[facility] [address] [place], [address] Erythrocyte distribution width (RBC) [Ratio] 13.6 % Normal 11.6-14.6 [facility] Comment on above: Performed By: #### L 100.0100 ####[facility] [address] [place], [address] Hematocrit (Bld) [Volume fraction] 31.4 % Low 37-47 [facility] Comment on above: Performed By: #### L 100.0100 ####[facility] [address] [place], [address] Hemoglobin (Bld) [Mass/Vol] 10.2 g/dL Low 12.0-15.0 [facility] Comment on above: Performed By: #### L 100.0100 ####[facility] [address] [place], [address] IG% 0.200 Normal 0.0-0.9 [facility] Comment on above: Result Comment: IG% - Immature Granulocytes (promyelocytes, myelocytes andmetamyelocytes) > 1% indicates that a LEFT SHIFT is Present. Performed By: #### L 100.0100 ####[facility] [address] [place], [address] Lymphocytes/100 WBC (Bld) 25.1 % Normal 19-41 [facility] Comment on above: Performed By: #### L 100.0100 ####[facility] [address] [place], [address] MCH (RBC) [Entitic mass] 30.9 pg Normal 27.0-32.0 [facility] Comment on above: Performed By: #### L 100.0100 ####[facility] [address] [place], [address] MCHC (RBC) [Mass/Vol] 32.5 g/dL Normal 32-36 [facility] Comment on above: Performed By: #### L 100.0100 ####[facility] [address] [place], [address] MCV (RBC) [Entitic vol] 95.2 fL Normal 81-99 [facility] Comment on above: Performed By: #### L 100.0100 ####[facility] [address] [place], [address] Monocytes/100 WBC (Bld) 8.2 % Normal 0-10 [facility] Comment on above: Performed By: #### L 100.0100 ####[facility] [address] [place], [address] Neutrophils/100 WBC (Bld) 64.7 % Normal 47-70 [facility] Comment on above: Performed By: #### L 100.0100 ####[facility] [address] [place], [address] Nucleated RBC (Bld) [#/Vol] 0 10*3/uL Normal 0-5 [facility] Comment on above: Performed By: #### L 100.0100 ####[facility] [address] [place], [address] Platelet mean volume (Bld) [Entitic vol] 10.2 fL Normal 6.2-12.0 [facility] Comment on above: Performed By: #### L 100.0100 ####[facility] [address] [place], [address] Platelets (Bld) [#/Vol] 232 10*3/uL Normal 150-450 [facility] Comment on above: Performed By: #### L 100.0100 ####[facility] [address] [place], [address] RBC (Bld) [#/Vol] 3.30 10*6/uL Low 4.2-5.4 [facility] Comment on above: Performed By: #### L 100.0100 ####[facility] [address] [place], [address] RDW SD 47.6 fl High 35.1-43.9 [facility] Comment on above: Performed By: #### L 100.0100 ####[facility] [address] [place], [place], [address] WBC (Bld) [#/Vol] 6.3 10*3/uL Normal 4.4-11.0 [facility] Comment on above: Performed By: #### L 100.0100 ####[facility] [address] [place], [address] Electrocardiogram reportOrde red By: Danish Tavarez on 06-04-2025 EKG study [facility] Work Phone: XR Chest 2 Viewson 5 Right pleural effusion with multifocal opacification/consolid ation in the lower 1/2 the lungs. The left lung is clear. Report Dictated on Electronically Signed By: Michel York MD Electronically Signed Date/Time: 06/04/2025 7:44 AM EDT [facility] [employer] SYSTEM Patient Name: MANSI CARO : 1955 Exam Date/Time: 06/01/2025 13:15 Procedure: XR CHEST [...] changes of the thoracic spine are noted. [facility] Michel York MD - 06/04/2025 Patient Name: MANSI CARO : 1955 Exam Date/Time: 06/01/2025 13:15 Procedure: XR CHEST [...] Electronically Signed Date/Time: 06/04/2025 7:44 AM EDT [facility] XR Chest 2 ViewsOrdered By: Michel York on 06-04-2025 [facility] Work Phone: CBC W/Diff, Automatedon 05-22 Absolute Lymph 1.36 X10 3/uL Normal 0.83-4.51 [facility] Comment on above: Performed By: #### L 100.0100 ####[facility] [address] [place], [address] Absolute Neut 4.7 X10 3/uL Normal 2.0-7.7 [facility] Comment on above: Performed By: #### L 100.0100 ####[facility] [address] [place], [address] Basophils/100 WBC (Bld) 0.3 % Normal 0-1 [facility] Comment on above: Performed By: #### L 100.0100 ####[facility] [address] [place], [address] Eosinophils/100 WBC (Bld) 1.6 % Normal 0-5 [facility] Comment on above: Performed By: #### L 100.0100 ####[facility] [address] [place], [address] Erythrocyte distribution width (RBC) [Ratio] 13.6 % Normal 11.6-14.6 [facility] Comment on above: Performed By: #### L 100.0100 ####[facility] [address] [place], [address] Hematocrit (Bld) [Volume fraction] 29.0 % Low 37-47 [facility] Comment on above: Performed By: #### L 100.0100 ####[facility] [address] [place], [address] Hemoglobin (Bld) [Mass/Vol] 9.5 g/dL Low 12.0-15.0 [facility] Comment on above: Performed By: #### L 100.0100 ####[facility] [address] [place], [address] IG% 0.100 Normal 0.0-0.9 [facility] Comment on above: Result Comment: IG% - Immature Granulocytes (promyelocytes, myelocytes andmetamyelocytes) > 1% indicates that a LEFT SHIFT is Present. Performed By: #### L 100.0100 ####[facility] [address] [place], [address] Lymphocytes/100 WBC (Bld) 19.2 % Normal 19-41 [facility] Comment on above: Performed By: #### L 100.0100 ####[facility] [address] [place], [address] MCH (RBC) [Entitic mass] 30.5 pg Normal 27.0-32.0 [facility] Comment on above: Performed By: #### L 100.0100 ####[facility] [address] [place], [address] MCHC (RBC) [Mass/Vol] 32.8 g/dL Normal 32-36 [facility] Comment on above: Performed By: #### L 100.0100 ####[facility] [address] [place], [address] MCV (RBC) [Entitic vol] 93.2 fL Normal 81-99 [facility] Comment on above: Performed By: #### L 100.0100 ####[facility] [address] [place], [address] Monocytes/100 WBC (Bld) 12.4 % High 0-10 [facility] Comment on above: Performed By: #### L 100.0100 ####[facility] [address] [place], [address] Neutrophils/100 WBC (Bld) 66.4 % Normal 47-70 [facility] Comment on above: Performed By: #### L 100.0100 ####[facility] [address] [place], [address] Nucleated RBC (Bld) [#/Vol] 0 10*3/uL Normal 0-5 [facility] Comment on above: Performed By: #### L 100.0100 ####[facility] [address] [place], [address] Platelet mean volume (Bld) [Entitic vol] 10.1 fL Normal 6.2-12.0 [facility] Comment on above: Performed By: #### L 100.0100 ####[facility] [address] [place], [address] Platelets (Bld) [#/Vol] 203 10*3/uL Normal 150-450 [facility] Comment on above: Performed By: #### L 100.0100 ####[facility] [address] [place], [address] RBC (Bld) [#/Vol] 3.11 10*6/uL Low 4.2-5.4 [facility] Comment on above: Performed By: #### L 100.0100 ####[facility] [address] [place], [address] RDW SD 46.3 fl High 35.1-43.9 [facility] Comment on above: Performed By: #### L 100.0100 ####[facility] [address] [place], [place], [address] WBC (Bld) [#/Vol] 7.1 10*3/uL Normal 4.4-11.0 [facility] Comment on above: Performed By: #### L 100.0100 ####[facility] [address] [facility] [address] [place], [address] 12 Lead EKGon 06-02-2025 12 Lead EKG [facility] 36on 06-02-2025 36 S: Song called the clinical access center B: He called to report Mansi was admitted to the hospital today A: He wanted to thank Dr. Lopez for her advice. R: She is admitted at [facility]. Patient instructed to call back with worsening symptoms, concerns or questions. [facility] 36 Name of caller requesting page: Song Phone Number of caller: [phone] Facility requesting page: The patient Spouse Reason for Page: The patient states he is taking the patient to [facility] right now [er Dr. Lopez orders. The patient O2 level this morning was 83 and her temperature is 99.1. Provider paged: Antonio Clay MD Practice Name of paged provider: [facility] Page Placed to #: Secure chat Time Page was sent or provider contacted: 10:35 am Page Content: PAGE: The patient Song, ; PT. Taylor Caro; The patient states he is taking the patient to [facility] right now per Dr. Lopez orders. The patient O2 level this morning was 83 and her temperature is 99.1. Please call the patient to advise. [facility] Anion gap in Serum or Plasma Ordered By: Bossman Sanders on 06-02-2025 Anion gap [Moles/Vol] 11 mmol/L 5-15 [facility] BUN/creatinine ratioOrdered By: Bossman Sanders on 06-02-2025 Urea nitrogen/Creatinine [Mass ratio] 16.6 mg/mg 10-20 [facility] Bilirubin, totalOrdered By: Remus Marilyn on 06-02-2025 Bilirubin [Mass/Vol] 0.27 mg/dL 0.00-1.30 [facility] Blood cultureOrdered By: Rem us Marilyn on 06-02-2025 Bacteria identified Cx Nom (Bld) No growth in 5 days. [facility] Bacteria identified Cx Nom (Bld) No growth in 5 days. [facility] CBC-Complete Blood Cnt No Di ffon 06-02-2025 Erythrocyte distribution width (RBC) [Ratio] 13.4 % Normal 11.6-14.6 [facility] Comment on above: Performed By: #### L 503.7505, L100.0500, L500.4050, L501.2450, L503.6005 ####[facility] [address] [place], [address] Hematocrit (Bld) [Volume fraction] 34.6 % Low 37-47 [facility] Comment on above: Performed By: #### L 503.7505, L100.0500, L500.4050, L501.2450, L503.6005 ####[facility] [address] [place], [address] Hemoglobin (Bld) [Mass/Vol] 11.2 g/dL Low 12.0-15.0 [facility] Comment on above: Performed By: #### L 503.7505, L100.0500, L500.4050, L501.2450, L503.6005 ####[facility] [address] [place], [address] MCH (RBC) [Entitic mass] 30.6 pg Normal 27.0-32.0 [facility] Comment on above: Performed By: #### L 503.7505, L100.0500, L500.4050, L501.2450, L503.6005 ####[facility] [address] [place], [address] MCHC (RBC) [Mass/Vol] 32.4 g/dL Normal 32-36 [facility] Comment on above: Performed By: #### L 503.7505, L100.0500, L500.4050, L501.2450, L503.6005 ####[facility] [address] [place], [address] MCV (RBC) [Entitic vol] 94.5 fL Normal 81-99 [facility] Comment on above: Performed By: #### L 503.7505, L100.0500, L500.4050, L501.2450, L503.6005 ####[facility] [address] [place], [address] Platelet mean volume (Bld) [Entitic vol] 10.0 fL Normal 6.2-12.0 [facility] Comment on above: Performed By: #### L 503.7505, L100.0500, L500.4050, L501.2450, L503.6005 ####[facility] [address] [place], [address] Platelets (Bld) [#/Vol] 230 10*3/uL Normal 150-450 [facility] Comment on above: Performed By: #### L 503.7505, L100.0500, L500.4050, L501.2450, L503.6005 ####[facility] [address] [place], [address] RBC (Bld) [#/Vol] 3.66 10*6/uL Low 4.2-5.4 [facility] Comment on above: Performed By: #### L 503.7505, L100.0500, L500.4050, L501.2450, L503.6005 ####[facility] [address] [place], [address] RDW SD 46.7 fl High 35.1-43.9 [facility] Comment on above: Performed By: #### L 503.7505, L100.0500, L500.4050, L501.2450, L503.6005 ####[facility] [address] [place], [address] WBC (Bld) [#/Vol] 9.0 10*3/uL Normal 4.4-11.0 [facility] Comment on above: Performed By: #### L 503.7505, L100.0500, L500.4050, L501.2450, L503.6005 ####[facility] [address] [place], [place], [id number] CTA Chst, Abd, Pel W and/or WOon 06-02-2025 CTA Chst, Abd, Pel W and/or WO Normal [facility] Carbon dioxide, total [Moles /volume] in Central venous bloodOrdered By: Bossman Sanders on 06-02-2025 CO2 [Moles/Vol] 24.0 mmol/L 21.0-32.0 [facility] Chloride assayOrdered By: Tami Sanders on 06-02-2025 Chloride [Moles/Vol] 102 mmol/L 98-108 [facility] Comprehensive Metabolic Prof ilon 06-02-2025 Albumin [Mass/Vol] 3.1 g/dL Low 3.4-4.8 [facility] Comment on above: Performed By: #### L 503.7505, L100.0500, L500.4050, L501.2450, L503.6005 ####[facility] [address] [place], [address] Albumin/Globulin [Mass ratio] 0.8 {ratio} Low 0.9-2.4 [facility] Comment on above: Performed By: #### L 503.7505, L100.0500, L500.4050, L501.2450, L503.6005 ####[facility] [address] [place], [address] ALK PHOS 70 U/L Normal 35-104 [facility] Comment on above: Performed By: #### L 503.7505, L100.0500, L500.4050, L501.2450, L503.6005 ####[facility] [address] [place], [address] ALT [Catalytic activity/Vol] 6 U/L Normal <=34 [facility] Comment on above: Performed By: #### L 503.7505, L100.0500, L500.4050, L501.2450, L503.6005 ####[facility] [address] [place], [address] AST [Catalytic activity/Vol] 24 U/L Normal <=31 [facility] Comment on above: Performed By: #### L 503.7505, L100.0500, L500.4050, L501.2450, L503.6005 ####[facility] [address] [place], [address] Bilirubin [Mass/Vol] 0.27 mg/dL Normal 0.00-1.30 [facility] Comment on above: Performed By: #### L 503.7505, L100.0500, L500.4050, L501.2450, L503.6005 ####[facility] [address] [place], [address] BUN/CRE 16.6 RATIO Normal 10-20 [facility] Comment on above: Performed By: #### L 503.7505, L100.0500, L500.4050, L501.2450, L503.6005 ####[facility] [address] [place], [address] Calcium [Mass/Vol] 8.7 mg/dL Normal 7.6-11.0 [facility] Comment on above: Performed By: #### L 503.7505, L100.0500, L500.4050, L501.2450, L503.6005 ####[facility] [address] [place], [address] Chloride [Moles/Vol] 102 mmol/L Normal 98-108 [facility] Comment on above: Performed By: #### L 503.7505, L100.0500, L500.4050, L501.2450, L503.6005 ####[facility] [address] [place], [address] CO2 [Moles/Vol] 24.0 mmol/L Normal 21.0-32.0 [facility] Comment on above: Performed By: #### L 503.7505, L100.0500, L500.4050, L501.2450, L503.6005 ####[facility] [address] [place], [address] Creatinine [Mass/Vol] 1.16 mg/dL Normal 0.70-1.20 [facility] Comment on above: Performed By: #### L 503.7505, L100.0500, L500.4050, L501.2450, L503.6005 ####[facility] [address] [place], [address] ECRCL 42.38 ml/min Low 50-250 [facility] Comment on above: Performed By: #### L 503.7505, L100.0500, L500.4050, L501.2450, L503.6005 ####[facility] [address] [place], [address] GAP 11 Normal 5-15 [facility] Comment on above: Performed By: #### L 503.7505, L100.0500, L500.4050, L501.2450, L503.6005 ####[facility] [address] [place], [address] GFR/1.73 sq M.predicted among non-blacks MDRD (S/P/Bld) [Vol rate/Area] 50 mL/min/{1.73_m2} Low >60 [facility] Comment on above: Result Comment: mL/m in/1.73m2 CKD-EPI Creatinine Equation (2020) Performed By: #### L 503.7505, L100.0500, L500.4050, L501.2450, L503.6005 ####[facility] [address] [place], [address] Globulin (S) [Mass/Vol] 3.8 g/dL Normal 2.2-4.2 [facility] Comment on above: Performed By: #### L 503.7505, L100.0500, L500.4050, L501.2450, L503.6005 ####[facility] [address] [place], [address] Glucose [Mass/Vol] 140 mg/dL High 70-99 [facility] Comment on above: Performed By: #### L 503.7505, L100.0500, L500.4050, L501.2450, L503.6005 ####[facility] [address] [place], [address] Potassium [Moles/Vol] 3.8 mmol/L Normal 3.3-5.1 [facility] Comment on above: Performed By: #### L 503.7505, L100.0500, L500.4050, L501.2450, L503.6005 ####[facility] [address] [place], [address] Sodium [Moles/Vol] 137 mmol/L Normal 133-145 [facility] Comment on above: Performed By: #### L 503.7505, L100.0500, L500.4050, L501.2450, L503.6005 ####[facility] [address] [place], [place], [id number] T PROT 6.9 g/dL Normal 5.9-8.4 [facility] Comment on above: Performed By: #### L 503.7505, L100.0500, L500.4050, L501.2450, L503.6005 ####[facility] [address] [place], [address] Urea nitrogen [Mass/Vol] 19 mg/dL Normal 4-19 [facility] Comment on above: Performed By: #### L 503.7505, L100.0500, L500.4050, L501.2450, L503.6005 ####[facility] [address] [place], [place], [id number] Emergency Department Summary on 06-02-2025 Emergency Department Summary Normal [facility] Erythrocyte distribution wid th ratioOrdered By: Bossman Sanders on 06-02-2025 Erythrocyte distribution width (RBC) [Ratio] 13.4 % 11.6-14.6 [facility] Erythrocyte distribution wid th standard deviationOrdered By: Bossman Sanders on 06-02-2025 Erythrocyte distribution width (RBC) [Ratio] 46.7 fl High 35.1-43.9 [facility] Glomerular filtration rate ( GFR) estimation/1.73 sq m using serum, plasma, or whole bOrdered By: Bossman Sanders on 06-02-2025 GFR/1.73 sq M.predicted among non-blacks MDRD (S/P/Bld) [Vol rate/Area] 50 mL/min/{1.73_m2} Low >60 [facility] H AND P Exam - Hospitaliston 06-02-2025 H&P Exam - Hospitalist Normal [facility] Hematocrit Auto (Bld) [Volum e fraction]Ordered By: Bossman Sanders on 06-02-2025 Hematocrit (Bld) [Volume fraction] 34.6 % Low 37-47 [facility] Hemoglobin measurementOrdere d By: Bossman Sanders on 06-02-2025 Hemoglobin (Bld) [Mass/Vol] 11.2 g/dL Low 12.0-15.0 [facility] Influenza virus A and B and SARS-CoV-2 (COVID-19) and Respiratory syncytial virus RNAOrdered By: Bossman Marilyn on 06-02-2025 SARS-CoV-2 (COVID-19) RNA ENRIQUE+probe Ql (Unsp spec) [facility] L503.7505on 06-02-2025 Natriuretic peptide B (Bld) [Mass/Vol] 948 pg/mL High <=900 [facility] Comment on above: Result Comment: Hear t Failure Unlikely: < 300 pg/mLHeart Failure Likely< 50 Years: > 450 pg/mL50-75 Years: > 900 pg/mL>75 Years: > 1800 pg/mL Performed By: #### L 503.7505, L100.0500, L500.4050, L501.2450, L503.6005 ####[facility] [address] [place], [place], [address] Lactic Acidon 06-02-2025 Lactate [Moles/Vol] 1.3 mmol/L Normal 0.0-2.0 [facility] Comment on above: Order Comment: Y Performed By: #### L 503.7505, L100.0500, L500.4050, L501.2450, L503.6005 ####[facility] [address] [place], [place], [address] Lipaseon 06-02-2025 Lipase [Catalytic activity/Vol] 15 U/L Normal 13-75 [facility] Comment on above: Result Comment: Plehema fay note:LIPASE revised reference range effective 23.New Lipase methodology. Expected to produce lower valuesthan the previous assay method.NEW Reference Range: 13 - 75 U/L Performed By: #### L 503.7505, L100.0500, L500.4050, L501.2450, L503.6005 ####[facility] [address] [place], [place], [address] M100.678on 06-02-2025 M100.678 SARS-CoV-2 (COVID 19 ) Negative INFLUENZA A Negative INFLUENZA B Negative RSV PCR Negative Normal [facility] Comment on above: Performed By: #### M 100.678 ####[facility] [address] [place], [address] MCV (mean corpuscular volume ) determinationOrdered By: Bossman Sanders on 06-02-2025 MCV (RBC) [Entitic vol] 94.5 fL 81-99 [facility] Mean corpuscular hemoglobin (MCH) determinationOrdered By: Bossman Sanders on 06-02-2025 MCH (RBC) [Entitic mass] 30.6 pg 27.0-32.0 [facility] Natriuretic peptide.B prohor guillermina N-Terminal [Mass/volume] in Serum or PlasmaOrdered By: Bossman Sanders on 06-02-2025 Natriuretic peptide.B prohormone N-Terminal [Mass/Vol] 948 pg/mL High <900 [facility] No Panel InformationOrdered By: Bossman Sanders on 06-02-2025 24 U/L <32 [facility] Platelet countOrdered By: Tami Sanders on 06-02-2025 Platelets (Bld) [#/Vol] 230 10*3/uL 150-450 [facility] Potassium measurement (mass/ volume)Ordered By: Bossman Sanders on 06-02-2025 Potassium (Unsp spec) [Mass/Vol] 3.8 mmol/L 3.3-5.1 [facility] RBC Auto (Bld) [#/Vol]Ordere d By: Bossman Sanders on 06-02-2025 RBC (Bld) [#/Vol] 3.66 10*6/uL Low 4.2-5.4 [facility] RESPIRATORY PANEL MOLECULARo n 06-02-2025 RP PANEL Normal [facility] Comment on above: Performed By: #### M 100.638 ####[facility] [address] [place], [address] Respiratory pathogens detect ion panel by molecular detection methodOrdered By: Bossman Sanders on 06-02-2025 Respiratory pathogens DNA and RNA panel ENRIQUE+probe (Resp) [facility] Serum creatinine measurement (mass/volume)Ordered By: Remus Sanders on 06-02-2025 Creatinine [Mass/Vol] 1.16 mg/dL 0.70-1.20 [facility] Serum globulin measurementOr dered By: Bossman Sanders on 06-02-2025 Globulin (S) [Mass/Vol] 3.8 g/dL 2.2-4.2 [facility] Serum glucose measurement (m ass/volume)Ordered By: Remus Sanders on 06-02-2025 Glucose [Mass/Vol] 140 mg/dL High 70-99 [facility] Serum or plasma alanine cisneros otransferase (ALT) measurementOrdered By: Remus Sanders on 06-02-2025 ALT [Catalytic activity/Vol] 6 U/L <35 [facility] Serum or plasma albumin loco urement (mass/volume)Ordered By: Remus Sanders on 06-02-2025 Albumin [Mass/Vol] 3.1 g/dL Low 3.4-4.8 [facility] Serum or plasma albumin/glob ulin mass ratioOrdered By: Rem Junko on 06-02-2025 Albumin/Globulin [Mass ratio] 0.8 {ratio} Low 0.9-2.4 [facility] Serum or plasma alkaline sergio sphatase measurementOrdered By: Remus Sanders on 06-02-2025 ALP [Catalytic activity/Vol] 70 U/L 35-104 [facility] Serum or plasma calcium loco urement (mass/volume)Ordered By: Remus Marilyn on 06-02-2025 Calcium [Mass/Vol] 8.7 mg/dL 7.6-11.0 [facility] Serum or plasma urea nitroge n measurement (mass/volume)Ordered By: Remus Ungko on 06-02-2025 Urea nitrogen [Mass/Vol] 19 mg/dL 4-19 [facility] Sodium levelOrdered By: Remmaureen Sanders on 06-02-2025 Sodium [Moles/Vol] 137 mmol/L 133-145 [facility] Total proteinOrdered By: Rem us Marilyn on 06-02-2025 Protein [Mass/Vol] 6.9 g/dL 5.9-8.4 [facility] White blood cell (WBC) count Ordered By: Bossman Sanders on 06-02-2025 WBC (Bld) [#/Vol] 9.0 10*3/uL 4.4-11.0 [facility] XR Chest 2 Viewson Radiology Study observation (narrative) [facility] myra Gastroenterology Visit Repor ton 05-30-2025 Gastroenterology Visit Report Normal [facility] Cardiology Visit Reporton Cardiology Visit Report Normal [facility] Urine Cultureon 05-25-2025 URC Normal [facility] Comment on above: Performed By: #### M 100.2200 ####[facility] [address] [place], [place], [id number] Absolute lymphocyte countOrd ered By: Fazal Heller on 05-22-2025 Lymphocytes Auto (Unsp spec) [#/Vol] 1.30 10*3/uL 0.83-4.51 [facility] Absolute neutrophil countOrd ered By: Fazal Heller on 05-22-2025 Neutrophils (Bld) [#/Vol] 5.0 10*3/uL 2.0-7.7 [facility] Anion gap in Serum or Plasma Ordered By: Fazal Heller on 05-22-2025 Anion gap [Moles/Vol] 10 mmol/L 5-15 [facility] Automated blood erythrocyte countOrdered By: Fazal Heller on 05-22-2025 RBC (Bld) [#/Vol] 3.05 10*6/uL Low 4.2-5.4 [facility] Comment on above: Performed By: #### L 500.4050, L501.2450, L100.0100 ####[facility] [address] [place], [place], [id number] Automated blood hematocrit ( percentage)Ordered By: Fazal Heller on 05-22-2025 Hematocrit (Bld) [Volume fraction] 29.1 % Low 37-47 [facility] Comment on above: Performed By: #### L 500.4050, L501.2450, L100.0100 ####[facility] [address] [place], [address] Automated lymphocyte count a s percentage of total leukocytesOrdered By: Fazal Heller on 05-22-2025 Lymphocytes/100 WBC Auto (Unsp spec) 17.5 % Low 19-41 [facility] BUN/creatinine ratioOrdered By: Fazal Heller on 05-22-2025 Urea nitrogen/Creatinine [Mass ratio] 20.0 mg/mg 10-20 [facility] Basophil percentageOrdered B y: Fazal Heller on 05-22-2025 Basophils/100 WBC (Bld) 0.4 % Normal 0-1 [facility] Comment on above: Performed By: #### L 500.4050, L501.2450, L100.0100 ####[facility] [address] [place], [address] Bilirubin Test strip Ql (U)O rdered By: Fazal Heller on 05-22-2025 Bilirubin Ql (U) 6 mg/dL High Negative [facility] Comment on above: COLOR OF URINE MAY A FFECT DIPSTICK RESULTS. Bilirubin, totalOrdered By: Fazal Heller on 05-22-2025 Bilirubin [Mass/Vol] 0.27 mg/dL 0.00-1.30 [facility] CBC W/Diff, Automatedon 07-0 Absolute Lymph 1.30 X10 3/uL Normal 0.83-4.51 [facility] Comment on above: Performed By: #### L 500.4050, L501.2450, L100.0100 ####[facility] [address] [place], [address] Absolute Neut 5.0 X10 3/uL Normal 2.0-7.7 [facility] Comment on above: Performed By: #### L 500.4050, L501.2450, L100.0100 ####[facility] [address] [place], [address] Lymphocytes/100 WBC (Bld) 17.5 % Low 19-41 [facility] Comment on above: Performed By: #### L 500.4050, L501.2450, L100.0100 ####[facility] [address] [place], [address] RDW SD 45.8 fl High 35.1-43.9 [facility] Comment on above: Performed By: #### L 500.4050, L501.2450, L100.0100 ####[facility] [address] [place], [address] Absolute Lymph 1.18 X10 3/uL Normal 0.83-4.51 [facility] Comment on above: Performed By: #### L 501.2450, L500.4050, L100.0100 ####[facility] [address] [place], [address] Absolute Neut 5.1 X10 3/uL Normal 2.0-7.7 [facility] Comment on above: Performed By: #### L 501.2450, L500.4050, L100.0100 ####[facility] [address] [place], [address] Basophils/100 WBC (Bld) 0.4 % Normal 0-1 [facility] Comment on above: Performed By: #### L 501.2450, L500.4050, L100.0100 ####[facility] [address] [place], [address] Eosinophils/100 WBC (Bld) 2.1 % Normal 0-5 [facility] Comment on above: Performed By: #### L 501.2450, L500.4050, L100.0100 ####[facility] [address] [place], [address] Erythrocyte distribution width (RBC) [Ratio] 13.2 % Normal 11.6-14.6 [facility] Comment on above: Performed By: #### L 501.2450, L500.4050, L100.0100 ####[facility] [address] [place], [address] Hematocrit (Bld) [Volume fraction] 32.8 % Low 37-47 [facility] Comment on above: Performed By: #### L 501.2450, L500.4050, L100.0100 ####[facility] [address] [place], [address] Hemoglobin (Bld) [Mass/Vol] 10.6 g/dL Low 12.0-15.0 [facility] Comment on above: Performed By: #### L 501.2450, L500.4050, L100.0100 ####[facility] [address] [place], [address] IG% 0.400 Normal 0.0-0.9 [facility] Comment on above: Result Comment: IG% - Immature Granulocytes (promyelocytes, myelocytes andmetamyelocytes) > 1% indicates that a LEFT SHIFT is Present. Performed By: #### L 500.4050, L501.2450, L100.0100 ####[facility] [address] [place], [address] Performed By: #### L 501.2450, L500.4050, L100.0100 ####[facility] [address] [place], [address] Lymphocytes/100 WBC (Bld) 16.2 % Low 19-41 [facility] Comment on above: Performed By: #### L 501.2450, L500.4050, L100.0100 ####[facility] [address] [place], [address] MCH (RBC) [Entitic mass] 30.9 pg Normal 27.0-32.0 [facility] Comment on above: Performed By: #### L 501.2450, L500.4050, L100.0100 ####[facility] [address] [place], [address] MCHC (RBC) [Mass/Vol] 32.3 g/dL Normal 32-36 [facility] Comment on above: Performed By: #### L 501.2450, L500.4050, L100.0100 ####[facility] [address] [place], [address] MCV (RBC) [Entitic vol] 95.6 fL Normal 81-99 [facility] Comment on above: Performed By: #### L 501.2450, L500.4050, L100.0100 ####[facility] [address] [place], [address] Monocytes/100 WBC (Bld) 10.4 % High 0-10 [facility] Comment on above: Performed By: #### L 501.2450, L500.4050, L100.0100 ####[facility] [address] [place], [address] Neutrophils/100 WBC (Bld) 70.5 % High 47-70 [facility] Comment on above: Performed By: #### L 501.2450, L500.4050, L100.0100 ####[facility] [address] [place], [address] Nucleated RBC (Bld) [#/Vol] 0 10*3/uL Normal 0-5 [facility] Comment on above: Performed By: #### L 500.4050, L501.2450, L100.0100 ####[facility] [address] [place], [address] Performed By: #### L 501.2450, L500.4050, L100.0100 ####[facility] [address] [place], [address] Platelet mean volume (Bld) [Entitic vol] 10.2 fL Normal 6.2-12.0 [facility] Comment on above: Performed By: #### L 501.2450, L500.4050, L100.0100 ####[facility] [address] [place], [address] Platelets (Bld) [#/Vol] 221 10*3/uL Normal 150-450 [facility] Comment on above: Performed By: #### L 501.2450, L500.4050, L100.0100 ####[facility] [address] [place], [address] RBC (Bld) [#/Vol] 3.43 10*6/uL Low 4.2-5.4 [facility] Comment on above: Performed By: #### L 501.2450, L500.4050, L100.0100 ####[facility] [address] [place], [address] RDW SD 46.4 fl High 35.1-43.9 [facility] Comment on above: Performed By: #### L 501.2450, L500.4050, L100.0100 ####[facility] [address] [place], [address] WBC (Bld) [#/Vol] 7.3 10*3/uL Normal 4.4-11.0 [facility] Comment on above: Performed By: #### L 501.2450, L500.4050, L100.0100 ####[facility] [address] [place], [address] CTA Abd/Pelvis W/WO Contrast on 05-22-2025 CTA Abd/Pelvis W/WO Contrast Normal [facility] Carbon dioxide, total [Moles /volume] in Central venous bloodOrdered By: Fazal Heller on 05-22-2025 CO2 [Moles/Vol] 25.3 mmol/L 21.0-32.0 [facility] Chloride assayOrdered By: Renny Heller on 05-22-2025 Chloride [Moles/Vol] 102 mmol/L 98-108 [facility] Comprehensive Metabolic Prof ilon 05-22-2025 Albumin [Mass/Vol] 3.1 g/dL Low 3.4-4.8 [facility] Comment on above: Performed By: #### L 500.4050, L501.2450, L100.0100 ####[facility] [id number] [place], [address] Albumin/Globulin [Mass ratio] 0.9 {ratio} Normal 0.9-2.4 [facility] Comment on above: Performed By: #### L 500.4050, L501.2450, L100.0100 ####[facility] [id number] [place], [address] ALK PHOS 67 U/L Normal 35-104 [facility] Comment on above: Performed By: #### L 500.4050, L501.2450, L100.0100 ####[facility] [id number] [place], [address] ALT [Catalytic activity/Vol] 7 U/L Normal <=34 [facility] Comment on above: Performed By: #### L 500.4050, L501.2450, L100.0100 ####[facility] [address] [place], [address] AST [Catalytic activity/Vol] 28 U/L Normal <=31 [facility] Comment on above: Performed By: #### L 500.4050, L501.2450, L100.0100 ####[facility] [address] [place], [address] Bilirubin [Mass/Vol] 0.27 mg/dL Normal 0.00-1.30 [facility] Comment on above: Performed By: #### L 500.4050, L501.2450, L100.0100 ####[facility] [address] [place], [address] BUN/CRE 20.0 RATIO Normal 10-20 [facility] Comment on above: Performed By: #### L 500.4050, L501.2450, L100.0100 ####[facility] [address] [place], [address] Calcium [Mass/Vol] 8.7 mg/dL Normal 7.6-11.0 [facility] Comment on above: Performed By: #### L 500.4050, L501.2450, L100.0100 ####[facility] [address] [place], [address] Chloride [Moles/Vol] 102 mmol/L Normal 98-108 [facility] Comment on above: Performed By: #### L 500.4050, L501.2450, L100.0100 ####[facility] [address] [place], [address] CO2 [Moles/Vol] 25.3 mmol/L Normal 21.0-32.0 [facility] Comment on above: Performed By: #### L 500.4050, L501.2450, L100.0100 ####[facility] [address] [place], [address] Creatinine [Mass/Vol] 1.42 mg/dL High 0.70-1.20 [facility] Comment on above: Performed By: #### L 500.4050, L501.2450, L100.0100 ####[facility] [address] [place], [address] ECRCL 35.59 ml/min Low 50-250 [facility] Comment on above: Performed By: #### L 500.4050, L501.2450, L100.0100 ####[facility] [address] [place], [address] GAP 10 Normal 5-15 [facility] Comment on above: Performed By: #### L 500.4050, L501.2450, L100.0100 ####[facility] [address] [place], [address] GFR/1.73 sq M.predicted among non-blacks MDRD (S/P/Bld) [Vol rate/Area] 39 mL/min/{1.73_m2} Low >60 [facility] Comment on above: Result Comment: mL/m in/1.73m2 CKD-EPI Creatinine Equation (2020) Performed By: #### L 500.4050, L501.2450, L100.0100 ####[facility] [address] [place], [address] Globulin (S) [Mass/Vol] 3.3 g/dL Normal 2.2-4.2 [facility] Comment on above: Performed By: #### L 500.4050, L501.2450, L100.0100 ####[facility] [address] [place], [address] Glucose [Mass/Vol] 173 mg/dL High 70-99 [facility] Comment on above: Performed By: #### L 500.4050, L501.2450, L100.0100 ####[facility] [address] [place], [address] Potassium [Moles/Vol] 4.6 mmol/L Normal 3.3-5.1 [facility] Comment on above: Performed By: #### L 500.4050, L501.2450, L100.0100 ####[facility] [address] [place], [address] Sodium [Moles/Vol] 137 mmol/L Normal 133-145 [facility] Comment on above: Performed By: #### L 500.4050, L501.2450, L100.0100 ####[facility] [address] [place], [address] T PROT 6.4 g/dL Normal 5.9-8.4 [facility] Comment on above: Performed By: #### L 500.4050, L501.2450, L100.0100 ####[facility] [address] [place], [address] Urea nitrogen [Mass/Vol] 28 mg/dL High 4-19 [facility] Comment on above: Performed By: #### L 500.4050, L501.2450, L100.0100 ####[facility] [address] [place], [address] Albumin [Mass/Vol] 3.2 g/dL Low 3.4-4.8 [facility] Comment on above: Performed By: #### L 501.2450, L500.4050, L100.0100 ####[facility] [address] [place], [address] Albumin/Globulin [Mass ratio] 0.9 {ratio} Normal 0.9-2.4 [facility] Comment on above: Performed By: #### L 501.2450, L500.4050, L100.0100 ####[facility] [address] [place], [address] ALK PHOS 74 U/L Normal 35-104 [facility] Comment on above: Performed By: #### L 501.2450, L500.4050, L100.0100 ####[facility] [address] [place], [address] ALT [Catalytic activity/Vol] 6 U/L Normal <=34 [facility] Comment on above: Performed By: #### L 501.2450, L500.4050, L100.0100 ####[facility] [address] [place], [address] AST [Catalytic activity/Vol] 30 U/L Normal <=31 [facility] Comment on above: Performed By: #### L 501.2450, L500.4050, L100.0100 ####[facility] [address] [place], [address] Bilirubin [Mass/Vol] 0.33 mg/dL Normal 0.00-1.30 [facility] Comment on above: Performed By: #### L 501.2450, L500.4050, L100.0100 ####[facility] [address] [place], [address] BUN/CRE 19.7 RATIO Normal 10-20 [facility] Comment on above: Performed By: #### L 501.2450, L500.4050, L100.0100 ####[facility] [address] [place], [address] Calcium [Mass/Vol] 9.0 mg/dL Normal 7.6-11.0 [facility] Comment on above: Performed By: #### L 501.2450, L500.4050, L100.0100 ####[facility] [address] [place], [address] Chloride [Moles/Vol] 100 mmol/L Normal 98-108 [facility] Comment on above: Performed By: #### L 501.2450, L500.4050, L100.0100 ####[facility] [address] [place], [address] CO2 [Moles/Vol] 23.7 mmol/L Normal 21.0-32.0 [facility] Comment on above: Performed By: #### L 501.2450, L500.4050, L100.0100 ####[facility] [address] [place], [address] Creatinine [Mass/Vol] 1.39 mg/dL High 0.70-1.20 [facility] Comment on above: Performed By: #### L 501.2450, L500.4050, L100.0100 ####[facility] [address] [place], [address] ECRCL 36.36 ml/min Low 50-250 [facility] Comment on above: Performed By: #### L 501.2450, L500.4050, L100.0100 ####[facility] [address] [place], [address] GAP 12 Normal 5-15 [facility] Comment on above: Performed By: #### L 501.2450, L500.4050, L100.0100 ####[facility] [address] [place], [address] GFR/1.73 sq M.predicted among non-blacks MDRD (S/P/Bld) [Vol rate/Area] 40 mL/min/{1.73_m2} Low >60 [facility] Comment on above: Result Comment: mL/m in/1.73m2 CKD-EPI Creatinine Equation (2020) Performed By: #### L 501.2450, L500.4050, L100.0100 ####[facility] [address] [place], [address] Globulin (S) [Mass/Vol] 3.6 g/dL Normal 2.2-4.2 [facility] Comment on above: Performed By: #### L 501.2450, L500.4050, L100.0100 ####[facility] [address] [place], [address] Glucose [Mass/Vol] 236 mg/dL High 70-99 [facility] Comment on above: Performed By: #### L 501.2450, L500.4050, L100.0100 ####[facility] [address] [place], [address] Potassium [Moles/Vol] 4.4 mmol/L Normal 3.3-5.1 [facility] Comment on above: Performed By: #### L 501.2450, L500.4050, L100.0100 ####[facility] [address] [place], [address] Sodium [Moles/Vol] 136 mmol/L Normal 133-145 [facility] Comment on above: Performed By: #### L 501.2450, L500.4050, L100.0100 ####[facility] [address] [place], [address] T PROT 6.8 g/dL Normal 5.9-8.4 [facility] Comment on above: Performed By: #### L 501.2450, L500.4050, L100.0100 ####[facility] [address] [place], [address] Urea nitrogen [Mass/Vol] 27 mg/dL High 4-19 [facility] Comment on above: Performed By: #### L 501.2450, L500.4050, L100.0100 ####[facility] [address] [place], [address] Emergency Department Summary on 05-22-2025 Emergency Department Summary Normal [facility] Eosinophil percentageOrdered By: Fazal Heller on 05-22-2025 Eosinophils/100 WBC (Bld) 2.2 % Normal 0-5 [facility] Comment on above: Performed By: #### L 500.4050, L501.2450, L100.0100 ####[facility] [address] [place], [address] Erythrocyte distribution wid th ratioOrdered By: Fazal Heller on 05-22-2025 Erythrocyte distribution width (RBC) [Ratio] 13.2 % Normal 11.6-14.6 [facility] Comment on above: Performed By: #### L 500.4050, L501.2450, L100.0100 ####[facility] [address] [place], [address] Erythrocyte distribution wid th standard deviationOrdered By: Fazal Heller on 05-22-2025 Erythrocyte distribution width (RBC) [Ratio] 45.8 fl High 35.1-43.9 [facility] Glomerular filtration rate ( GFR) estimation/1.73 sq m using serum, plasma, or whole bOrdered By: Fazal Heller on 05-22-2025 GFR/1.73 sq M.predicted among non-blacks MDRD (S/P/Bld) [Vol rate/Area] 39 mL/min/{1.73_m2} Low >60 [facility] Comment on above: mL/min/1.73m2 CKD-EP I Creatinine Equation (2020) Hemoglobin measurementOrdere d By: Fazal Heller on 05-22-2025 Hemoglobin (Bld) [Mass/Vol] 9.4 g/dL Low 12.0-15.0 [facility] Comment on above: Performed By: #### L 500.4050, L501.2450, L100.0100 ####[facility] [address] [facility] [address] [place], [place], [id number] Immature granulocytes/100 WB C Auto (Bld)Ordered By: Fazal Heller on 05-22-2025 Immature granulocytes/100 WBC (Bld) 0.400 % 0.0-0.9 [facility] Comment on above: IG% - Immature Granu locytes (promyelocytes, myelocytes and metamyelocytes) > 1% indicates that a LEFT SHIFT is Present. Ketones Test strip Ql (U)Ord ered By: Fazal Heller on 05-22-2025 Ketones Ql (U) Negative Negative [facility] Laboratory - Chemistry and C hemistry - challengeOrdered By: Fazal Heller on 05-22-2025 AST [Catalytic activity/Vol] 28 U/L <32 [facility] Lipaseon 05-22-2025 Lipase [Catalytic activity/Vol] 13 U/L Normal 13-75 [facility] Comment on above: Result Comment: Josy fay note:LIPASE revised reference range effective 23.New Lipase methodology. Expected to produce lower valuesthan the previous assay method.NEW Reference Range: 13 - 75 U/L Performed By: #### L 500.4050, L501.2450, L100.0100 ####[facility] [address] [place], [place], [address] Lipase [Catalytic activity/Vol] 15 U/L Normal 13-75 [facility] Comment on above: Result Comment: Josy fay note:LIPASE revised reference range effective 23.New Lipase methodology. Expected to produce lower valuesthan the previous assay method.NEW Reference Range: 13 - 75 U/L Performed By: #### L 501.2450, L500.4050, L100.0100 ####[facility] [address] [place], [place], [address] Lipase measurementOrdered By : Fazal Heller on 05-22-2025 Lipase [Catalytic activity/Vol] 13 U/L 13-75 [facility] Comment on above: Please note:LIPASE r evised reference range effective 23. New Lipase methodology. Expected to produce lower values than the previous assay method. NEW Reference Range: 13 - 75 U/L MCV (mean corpuscular volume ) determinationOrdered By: Fazal Heller on 05-22-2025 MCV (RBC) [Entitic vol] 95.4 fL Normal 81-99 [facility] Comment on above: Performed By: #### L 500.4050, L501.2450, L100.0100 ####[facility] [address] [place], [place], [address] Mean corpuscular hemoglobin (MCH) determinationOrdered By: Fazal Heller on 05-22-2025 MCH (RBC) [Entitic mass] 30.8 pg Normal 27.0-32.0 [facility] Comment on above: Performed By: #### L 500.4050, L501.2450, L100.0100 ####[facility] [address] [place], [place], [address] Mean corpuscular hemoglobin concentration (MCHC) determinationOrdered By: Fazal Heller on 05-22-2025 MCHC (RBC) [Mass/Vol] 32.3 g/dL Normal 32-36 [facility] Comment on above: Performed By: #### L 500.4050, L501.2450, L100.0100 ####[facility] [address] [place], [place], [address] Mean platelet volume determi nationOrdered By: Fazal Heller on 05-22-2025 Platelet mean volume (Bld) [Entitic vol] 10.4 fL Normal 6.2-12.0 [facility] Comment on above: Performed By: #### L 500.4050, L501.2450, L100.0100 ####[facility] [address] [place], [address] Microscopic analysis of urin e for red blood cells (RBC)Ordered By: Fazal Heller on 05-22-2025 Microscopic analysis of urine for red blood cells (RBC) 0-5 SEEN /hpf 0-5 [facility] Monocyte percentageOrdered B y: Fazal Heller on 05-22-2025 Monocytes/100 WBC (Bld) 12.5 % High 0-10 [facility] Comment on above: Performed By: #### L 500.4050, L501.2450, L100.0100 ####[facility] [address] [place], [place], [address] Mucus LM Ql (Urine sed)Order ed By: Fazal Heller on 05-22-2025 Mucus Ql (Urine sed) 0 SEEN /hpf [facility] Neutrophil percentageOrdered By: Fazal Heller on 05-22-2025 Neutrophils/100 WBC (Bld) 67.0 % Normal 47-70 [facility] Comment on above: Performed By: #### L 500.4050, L501.2450, L100.0100 ####[facility] [address] [place], [place], [address] Nitrite Test strip Ql (U)Ord ered By: Fazal Heller on 05-22-2025 Nitrite Ql (U) Positive High Negative [facility] No Panel InformationOrdered By: Fazal Heller on 05-22-2025 28 U/L <32 [facility] Nucleated red blood cell per centageOrdered By: Fazal Heller on 05-22-2025 Nucleated RBC/100 WBC (Bld) [Ratio] 0 % 0-5 [facility] Platelet countOrdered By: Renny Heller on 05-22-2025 Platelets (Bld) [#/Vol] 193 10*3/uL Normal 150-450 [facility] Comment on above: Performed By: #### L 500.4050, L501.2450, L100.0100 ####[facility] [address] [place], [place], [address] Potassium measurement (mass/ volume)Ordered By: Fazal Heller on 05-22-2025 Potassium (Unsp spec) [Mass/Vol] 4.6 mmol/L 3.3-5.1 [facility] Protein Test strip Ql (U)Ord ered By: Fazal Heller on 05-22-2025 Protein Ql (U) 30 mg/dl High Negative [facility] Serum creatinine measurement (mass/volume)Ordered By: Fazal Heller on 05-22-2025 Creatinine [Mass/Vol] 1.42 mg/dL High 0.70-1.20 [facility] Serum globulin measurementOr dered By: Fazal Heller on 05-22-2025 Globulin (S) [Mass/Vol] 3.3 g/dL 2.2-4.2 [facility] Serum glucose measurement (m ass/volume)Ordered By: Fazal Heller on 05-22-2025 Glucose [Mass/Vol] 173 mg/dL High 70-99 [facility] Serum or plasma alanine cisneros otransferase (ALT) measurementOrdered By: Fazal Heller on 05-22-2025 ALT [Catalytic activity/Vol] 7 U/L <35 [facility] Serum or plasma albumin loco urement (mass/volume)Ordered By: Fazal Heller on 05-22-2025 Albumin [Mass/Vol] 3.1 g/dL Low 3.4-4.8 [facility] Serum or plasma albumin/glob ulin mass ratioOrdered By: Fazal Heller on 05-22-2025 Albumin/Globulin [Mass ratio] 0.9 {ratio} 0.9-2.4 [facility] Serum or plasma alkaline sergio sphatase measurementOrdered By: Fazal Heller on 05-22-2025 ALP [Catalytic activity/Vol] 67 U/L 35-104 [facility] Serum or plasma calcium loco urement (mass/volume)Ordered By: Fazal Heller on 05-22-2025 Calcium [Mass/Vol] 8.7 mg/dL 7.6-11.0 [facility] Serum or plasma urea nitroge n measurement (mass/volume)Ordered By: Fazal Heller on 05-22-2025 Urea nitrogen [Mass/Vol] 28 mg/dL High 4-19 [facility] Sodium levelOrdered By: Nelly Heller on 05-22-2025 Sodium [Moles/Vol] 137 mmol/L 133-145 [facility] Squamous epithelial cells de tection in urine sediment by light microscopyOrdered By: Fazal Heller on 05-22-2025 Epithelial cells.squamous LM Ql (Urine sed) 0 SEEN /hpf 5-10 [facility] Total proteinOrdered By: Radha Heller on 05-22-2025 Protein [Mass/Vol] 6.4 g/dL 5.9-8.4 [facility] Urinalysis, Completeon 05-22 BACTERIA 1+ /hpf Normal None Seen [facility] Comment on above: Order Comment: COLOR OF URINE MAY AFFECT DIPSTICK RESULTS.CLEAN CATCH Performed By: #### L 400.0001 ####[facility] [address] [place], [address] RBC 0-5 SEEN Normal 0-5 [facility] Comment on above: Order Comment: COLOR OF URINE MAY AFFECT DIPSTICK RESULTS.CLEAN CATCH Performed By: #### L 400.0001 ####[facility] [address] [place], [address] WBC 25-50 SEEN Normal 0-5 [facility] Comment on above: Order Comment: COLOR OF URINE MAY AFFECT DIPSTICK RESULTS.CLEAN CATCH Performed By: #### L 400.0001 ####[facility] [address] [place], [address] EPI,SQUAMOUS 0 SEEN Normal 5-10 [facility] Comment on above: Order Comment: COLOR OF URINE MAY AFFECT DIPSTICK RESULTS.CLEAN CATCH Performed By: #### L 400.0001 ####[facility] [address] [place], [address] Mucus Ql (Urine sed) 0 SEEN Normal [facility] Comment on above: Order Comment: COLOR OF URINE MAY AFFECT DIPSTICK RESULTS.CLEAN CATCH Performed By: #### L 400.0001 ####[facility] [address] [place], [address] Urine clarityOrdered By: Radha Heller on 05-22-2025 Clarity (U) Sl. Cloudy Clear [facility] Urine color determinationOrd ered By: Fazal Heller on 05-22-2025 Color (U) Ena Yellow [facility] Urine cultureOrdered By: Radha Heller on 05-22-2025 Bacteria identified Cx Nom (U) Pseudomonas aeruginosa Abnormal [facility] Urine glucose detectionOrder ed By: Fazal Heller on 05-22-2025 Glucose Ql (U) Normal mg/dl Normal [facility] Urine leukocyte esterase det ection by dipstickOrdered By: Fazal Heller on 05-22-2025 Leukocyte esterase Test strip Ql (U) 100 /ul High Negative [facility] Urine pHOrdered By: Fazal reis on 05-22-2025 pH (U) 7.0 [pH] 5.0 - 8.0 [facility] Urine sediment bacteria coun t by microscopy (number/high power field)Ordered By: Fazal Heller on 05-22-2025 Bacteria LM.HPF (Urine sed) [#/Area] 1 /[HPF] None Seen [facility] Urine specific gravity measu rementOrdered By: Fazal Heller on 05-22-2025 Specific gravity (U) [Rel density] 1.005 1.002-1.030 [facility] Urine urobilinogen measureme ntOrdered By: Fazal Heller on 05-22-2025 Urobilinogen Ql (U) 8 mg/dl High Normal [facility] White blood cell (WBC) count Ordered By: Fazal Heller on 05-22-2025 WBC (Bld) [#/Vol] 7.4 10*3/uL Normal 4.4-11.0 [facility] Comment on above: Performed By: #### L 500.4050, L501.2450, L100.0100 ####[facility] [address] [place], [place], [id number] White blood cell countOrdere d By: Fazal Heller on 05-22-2025 White blood cell count 25-50 SEEN /hpf 0-5 [facility] Bedside Glucoseon 05-03-2025 FINGERSTICK GLU 136 mg/dL High 74-106 [facility] Comment on above: Result Comment: TORRES GEMENT OF PATIENT CARE PER NURSING PROTOCOL Performed By: #### L 501.080 ####[facility] [address] [place], [place], [id number] Gl[facility] measurement at [facility] deOrdered By: Alonso Marte on 05-03-2025 Glucose [Mass/Vol] 136 mg/dL High 74-106 [facility] Comment on above: MANAGEMENT OF PATIEN T CARE PER NURSING PROTOCOL Bedside Glucoseon 05-02-2025 FINGERSTICK GLU 149 mg/dL High [facility]106 [facility] Comment on above: Result Comment: TORRES GEMENT OF PATIENT CARE PER NURSING PROTOCOL Performed By: #### L 501.080 ####[facility] [address] [place], [place], [address] FINGERSTICK GLU 136 mg/dL High 74-106 [facility] Comment on above: Result Comment: TORRES FRANKLIN OF PATIENT CARE PER NURSING PROTOCOL Performed By: #### L 501.080 ####[facility] [address] [place], [address] Absolute lymphocyte countOrd ered By: Alonso Conteok on 05-01-2025 Lymphocytes Auto (Unsp spec) [#/Vol] 1.34 10*3/uL 0.83-4.51 [facility] Absolute neutrophil countOrd ered By: Alonso Conteok on 05-01-2025 Neutrophils (Bld) [#/Vol] 3.0 10*3/uL 2.0-7.7 [facility] Anion gap in Serum or Plasma Ordered By: Alonso Estuardo on 05-01-2025 Anion gap [Moles/Vol] 9 mmol/L 5-15 [facility] Automated lymphocyte count a s percentage of total leukocytesOrdered By: Alonso Conteok on 05-01-2025 Lymphocytes/100 WBC Auto (Unsp spec) 25.5 % - [facility] BUN/creatinine ratioOrdered By: Alonso Conteok on 05-01-2025 Urea nitrogen/Creatinine [Mass ratio] 18.3 mg/mg - [facility] Basic Metabolic Profile (BMP )on 05-01-2025 BUN/CRE 18.3 RATIO Normal - [facility] Comment on above: Performed By: #### L 100.0100, L500.2500 ####[facility] [address] [place], [address] Calcium [Mass/Vol] 8.7 mg/dL Normal 7.6-11.0 [facility] Comment on above: Performed By: #### L 100.0100, L500.2500 ####[facility] [address] [place], [address] Chloride [Moles/Vol] 104 mmol/L Normal 98-108 [facility] Comment on above: Performed By: #### L 100.0100, L500.2500 ####[facility] [address] [place], [address] CO2 [Moles/Vol] 24.5 mmol/L Normal 21.0-32.0 [facility] Comment on above: Performed By: #### L 100.0100, L500.2500 ####[facility] [address] [place], [address] Creatinine [Mass/Vol] 0.88 mg/dL Normal 0.70-1.20 [facility] Comment on above: Performed By: #### L 100.0100, L500.2500 ####[facility] [address] [place], [address] ECRCL 55.61 ml/min Normal 50-250 [facility] Comment on above: Performed By: #### L 100.0100, L500.2500 ####[facility] [address] [place], [address] GAP 9 Normal 5-15 [facility] Comment on above: Performed By: #### L 100.0100, L500.2500 ####[facility] [address] [place], [address] GFR/1.73 sq M.predicted among non-blacks MDRD (S/P/Bld) [Vol rate/Area] 70 mL/min/{1.73_m2} Normal >60 [facility] Comment on above: Result Comment: mL/m in/1.73m2 CKD-EPI Creatinine Equation (2020) Performed By: #### L 100.0100, L500.2500 ####[facility] [address] [place], [address] Glucose [Mass/Vol] 148 mg/dL High 70-99 [facility] Comment on above: Performed By: #### L 100.0100, L500.2500 ####[facility] [address] [place], [address] Potassium [Moles/Vol] 4.1 mmol/L Normal 3.3-5.1 [facility] Comment on above: Performed By: #### L 100.0100, L500.2500 ####[facility] [address] [place], [address] Sodium [Moles/Vol] 138 mmol/L Normal 133-145 [facility] Comment on above: Performed By: #### L 100.0100, L500.2500 ####[facility] [address] [place], [address] Urea nitrogen [Mass/Vol] 16 mg/dL Normal 4-19 [facility] Comment on above: Performed By: #### L 100.0100, L500.2500 ####[facility] [address] [place], [address] Basophil percentageOrdered B y: Alonso Marte on 05-01-2025 Basophils/100 WBC (Bld) 0.6 % 0-1 [facility] Bedside Glucoseon 05-01-2025 FINGERSTICK GLU 231 mg/dL High 74-106 [facility] Comment on above: Result Comment: TORRES GEMENT OF PATIENT CARE PER NURSING PROTOCOL Performed By: #### L 501.080 ####[facility] [address] [place], [address] FINGERSTICK GLU 213 mg/dL High 74-106 [facility] Comment on above: Result Comment: TORRES GEMENT OF PATIENT CARE PER NURSING PROTOCOL Performed By: #### L 501.080 ####[facility] [address] [place], [address] FINGERSTICK GLU 136 mg/dL High 74-106 [facility] Comment on above: Result Comment: TORRES GEMENT OF PATIENT CARE PER NURSING PROTOCOL Performed By: #### L 501.080 ####[facility] [address] [place], [address] CBC W/Diff, Automatedon 04-22 Absolute Lymph 1.34 X10 3/uL Normal 0.83-4.51 [facility] Comment on above: Performed By: #### L 100.0100, L500.2500 ####[facility] [address] [place], [address] Absolute Neut 3.0 X10 3/uL Normal 2.0-7.7 [facility] Comment on above: Performed By: #### L 100.0100, L500.2500 ####[facility] [address] [place], [address] Basophils/100 WBC (Bld) 0.6 % Normal 0-1 [facility] Comment on above: Performed By: #### L 100.0100, L500.2500 ####[facility] [address] [place], [address] Eosinophils/100 WBC (Bld) 4.0 % Normal 0-5 [facility] Comment on above: Performed By: #### L 100.0100, L500.2500 ####[facility] [address] [place], [address] Erythrocyte distribution width (RBC) [Ratio] 13.4 % Normal 11.6-14.6 [facility] Comment on above: Performed By: #### L 100.0100, L500.2500 ####[facility] [address] [place], [address] Hematocrit (Bld) [Volume fraction] 28.6 % Low 37-47 [facility] Comment on above: Performed By: #### L 100.0100, L500.2500 ####[facility] [address] [place], [address] Hemoglobin (Bld) [Mass/Vol] 9.5 g/dL Low 12.0-15.0 [facility] Comment on above: Performed By: #### L 100.0100, L500.2500 ####[facility] [id number] [place], [address] IG% 0.400 Normal 0.0-0.9 [facility] Comment on above: Result Comment: IG% - Immature Granulocytes (promyelocytes, myelocytes andmetamyelocytes) > 1% indicates that a LEFT SHIFT is Present. Performed By: #### L 100.0100, L500.2500 ####[facility] [id number] [place], [address] Lymphocytes/100 WBC (Bld) 25.5 % Normal 19-41 [facility] Comment on above: Performed By: #### L 100.0100, L500.2500 ####[facility] [address] [place], [address] MCH (RBC) [Entitic mass] 31.1 pg Normal 27.0-32.0 [facility] Comment on above: Performed By: #### L 100.0100, L500.2500 ####[facility] [address] [place], [address] MCHC (RBC) [Mass/Vol] 33.2 g/dL Normal 32-36 [facility] Comment on above: Performed By: #### L 100.0100, L500.2500 ####[facility] [address] [place], [address] MCV (RBC) [Entitic vol] 93.8 fL Normal 81-99 [facility] Comment on above: Performed By: #### L 100.0100, L500.2500 ####[facility] [address] [place], [address] Monocytes/100 WBC (Bld) 12.0 % High 0-10 [facility] Comment on above: Performed By: #### L 100.0100, L500.2500 ####[facility] [address] [place], [address] Neutrophils/100 WBC (Bld) 57.5 % Normal 47-70 [facility] Comment on above: Performed By: #### L 100.0100, L500.2500 ####[facility] [address] [place], [address] Nucleated RBC (Bld) [#/Vol] 0 10*3/uL Normal 0-5 [facility] Comment on above: Performed By: #### L 100.0100, L500.2500 ####[facility] [address] [place], [address] Platelet mean volume (Bld) [Entitic vol] 10.2 fL Normal 6.2-12.0 [facility] Comment on above: Performed By: #### L 100.0100, L500.2500 ####[facility] [address] [place], [address] Platelets (Bld) [#/Vol] 207 10*3/uL Normal 150-450 [facility] Comment on above: Performed By: #### L 100.0100, L500.2500 ####[facility] [address] [place], [address] RBC (Bld) [#/Vol] 3.05 10*6/uL Low 4.2-5.4 [facility] Comment on above: Performed By: #### L 100.0100, L500.2500 ####[facility] [address] [place], [address] RDW SD 45.9 fl High 35.1-43.9 [facility] Comment on above: Performed By: #### L 100.0100, L500.2500 ####[facility] [address] [place], [address] WBC (Bld) [#/Vol] 5.3 10*3/uL Normal 4.4-11.0 [facility] Comment on above: Performed By: #### L 100.0100, L500.2500 ####[facility] [address] [place], [address] Carbon dioxide, total [Moles /volume] in Central venous bloodOrdered By: Alonso Marte on 05-01-2025 CO2 [Moles/Vol] 24.5 mmol/L 21.0-32.0 [facility] Chloride assayOrdered By: Rm Marte on 05-01-2025 Chloride [Moles/Vol] 104 mmol/L 98-108 [facility] Eosinophil percentageOrdered By: Alonso Marte on 05-01-2025 Eosinophils/100 WBC (Bld) 4.0 % 0-5 [facility] Erythrocyte distribution wid th ratioOrdered By: Alonso Marte 05-01-2025 Erythrocyte distribution width (RBC) [Ratio] 13.4 % 11.6-14.6 [facility] Erythrocyte distribution wid th standard deviationOrdered By: Alonso Marte 05-01-2025 Erythrocyte distribution width (RBC) [Ratio] 45.9 fl High 35.1-43.9 [facility] Glomerular filtration rate ( GFR) estimation/1.73 sq m using serum, plasma, or whole bOrdered By: Alonso Marte on 05-01-2025 GFR/1.73 sq M.predicted among non-blacks MDRD (S/P/Bld) [Vol rate/Area] 70 mL/min/{1.73_m2} >60 [facility] Comment on above: mL/min/1.73m2 CKD-EP I Creatinine Equation (2020) Hematocrit Auto (Bld) [Volum e fraction]Ordered By: Alonso Marte on 05-01-2025 Hematocrit (Bld) [Volume fraction] 28.6 % Low 37-47 [facility] Hemoglobin measurementOrdere d By: Alonso Marte 05-01-2025 Hemoglobin (Bld) [Mass/Vol] 9.5 g/dL Low 12.0-15.0 [facility] Immature granulocytes/100 WB C Auto (Bld)Ordered By: Alonso Marte 05-01-2025 Immature granulocytes/100 WBC (Bld) 0.400 % 0.0-0.9 [facility] Comment on above: IG% - Immature Granu locytes (promyelocytes, myelocytes and metamyelocytes) > 1% indicates that a LEFT SHIFT is Present. MCV (mean corpuscular volume ) determinationOrdered By: Alonso Marte on 05-01-2025 MCV (RBC) [Entitic vol] 93.8 fL 81-99 [facility] Mean corpuscular hemoglobin (MCH) determinationOrdered By: Alonso Marte on 05-01-2025 MCH (RBC) [Entitic mass] 31.1 pg 27.0-32.0 [facility] Mean corpuscular hemoglobin concentration (MCHC) determinationOrdered By: Alonso Marte on 05-01-2025 MCHC (RBC) [Mass/Vol] 33.2 g/dL 32-36 [facility] Mean platelet volume determi nationOrdered By: Alonso Marte 05-01-2025 Platelet mean volume (Bld) [Entitic vol] 10.2 fL 6.2-12.0 [facility] Monocyte percentageOrdered B y: Alonso Marte on 05-01-2025 Monocytes/100 WBC (Bld) 12.0 % High 0-10 [facility] Neutrophil percentageOrdered By: Alonso Marte on 05-01-2025 Neutrophils/100 WBC (Bld) 57.5 % 47-70 [facility] Nucleated red blood cell per centageOrdered By: Alonso Marte 05-01-2025 Nucleated RBC/100 WBC (Bld) [Ratio] 0 % 0-5 [facility] Platelet countOrdered By: Rm Marte on 05-01-2025 Platelets (Bld) [#/Vol] 207 10*3/uL 150-450 [facility] Potassium measurement (mass/ volume)Ordered By: Alonso Marte 05-01-2025 Potassium (Unsp spec) [Mass/Vol] 4.1 mmol/L 3.3-5.1 [facility] RBC Auto (Bld) [#/Vol]Ordere d By: Alonso Marte 05-01-2025 RBC (Bld) [#/Vol] 3.05 10*6/uL Low 4.2-5.4 [facility] Serum creatinine measurement (mass/volume)Ordered By: Alonso Marte 05-01-2025 Creatinine [Mass/Vol] 0.88 mg/dL 0.70-1.20 [facility] Serum glucose measurement (m ass/volume)Ordered By: Alonso Marte on 05-01-2025 Glucose [Mass/Vol] 148 mg/dL High 70-99 [facility] Serum or plasma calcium loco urement (mass/volume)Ordered By: Alonso Marte on 05-01-2025 Calcium [Mass/Vol] 8.7 mg/dL 7.6-11.0 [facility] Serum or plasma urea nitroge n measurement (mass/volume)Ordered By: Alonso Marte on 05-01-2025 Urea nitrogen [Mass/Vol] 16 mg/dL 4-19 [facility] Sodium levelOrdered By: Alonso Marte on 05-01-2025 Sodium [Moles/Vol] 138 mmol/L 133-145 [facility] White blood cell (WBC) count Ordered By: Alonso Marte on 05-01-2025 WBC (Bld) [#/Vol] 5.3 10*3/uL 4.4-11.0 [facility] Basic Metabolic Profile (BMP )on 04-30-2025 BUN/CRE 16.8 RATIO Normal 10-20 [facility] Comment on above: Performed By: #### L 500.2500, L100.0100 ####[facility] [address] [place], [address] Calcium [Mass/Vol] 8.7 mg/dL Normal 7.6-11.0 [facility] Comment on above: Performed By: #### L 500.2500, L100.0100 ####[facility] [address] [place], [address] Chloride [Moles/Vol] 105 mmol/L Normal 98-108 [facility] Comment on above: Performed By: #### L 500.2500, L100.0100 ####[facility] [address] [place], [address] CO2 [Moles/Vol] 25.1 mmol/L Normal 21.0-32.0 [facility] Comment on above: Performed By: #### L 500.2500, L100.0100 ####[facility] [address] [place], [address] Creatinine [Mass/Vol] 0.94 mg/dL Normal 0.70-1.20 [facility] Comment on above: Performed By: #### L 500.2500, L100.0100 ####[facility] [address] [place], [address] ECRCL 52.06 ml/min Normal 50-250 [facility] Comment on above: Performed By: #### L 500.2500, L100.0100 ####[facility] [address] [place], [address] GAP 9 Normal 5-15 [facility] Comment on above: Performed By: #### L 500.2500, L100.0100 ####[facility] [address] [place], [address] GFR/1.73 sq M.predicted among non-blacks MDRD (S/P/Bld) [Vol rate/Area] 65 mL/min/{1.73_m2} Normal >60 [facility] Comment on above: Result Comment: mL/m in/1.73m2 CKD-EPI Creatinine Equation (2020) Performed By: #### L 500.2500, L100.0100 ####[facility] [address] [place], [address] Glucose [Mass/Vol] 142 mg/dL High 70-99 [facility] Comment on above: Performed By: #### L 500.2500, L100.0100 ####[facility] [address] [place], [address] Potassium [Moles/Vol] 4.1 mmol/L Normal 3.3-5.1 [facility] Comment on above: Result Comment: Hemo lysis present, Results??could be affected.?? Performed By: #### L 500.2500, L100.0100 ####[facility] [address] [place], [address] Sodium [Moles/Vol] 139 mmol/L Normal 133-145 [facility] Comment on above: Performed By: #### L 500.2500, L100.0100 ####[facility] [address] [place], [address] Urea nitrogen [Mass/Vol] 16 mg/dL Normal 4-19 [facility] Comment on above: Performed By: #### L 500.2500, L100.0100 ####[facility] [address] [place], [address] Bedside Glucoseon --2024 FINGERSTICK GLU 188 mg/dL High 74-106 [facility] Comment on above: Result Comment: TORRES GEMENT OF PATIENT CARE PER NURSING PROTOCOL Performed By: #### L 501.080 ####[facility] [address] [place], [address] FINGERSTICK GLU 132 mg/dL High 74-106 [facility] Comment on above: Result Comment: TORRES GEMENT OF PATIENT CARE PER NURSING PROTOCOL Performed By: #### L 501.080 ####[facility] [address] [place], [address] CBC W/Diff, Automatedon 06-0 Absolute Lymph 1.82 X10 3/uL Normal 0.83-4.51 [facility] Comment on above: Performed By: #### L 500.2500, L100.0100 ####[facility] [address] [place], [address] Absolute Neut 3.6 X10 3/uL Normal 2.0-7.7 [facility] Comment on above: Performed By: #### L 500.2500, L100.0100 ####[facility] [address] [place], [address] Basophils/100 WBC (Bld) 0.5 % Normal 0-1 [facility] Comment on above: Performed By: #### L 500.2500, L100.0100 ####[facility] [address] [place], [address] Eosinophils/100 WBC (Bld) 4.4 % Normal 0-5 [facility] Comment on above: Performed By: #### L 500.2500, L100.0100 ####[facility] [address] [place], [address] Erythrocyte distribution width (RBC) [Ratio] 13.3 % Normal 11.6-14.6 [facility] Comment on above: Performed By: #### L 500.2500, L100.0100 ####[facility] [address] [place], [address] Hematocrit (Bld) [Volume fraction] 29.9 % Low 37-47 [facility] Comment on above: Performed By: #### L 500.2500, L100.0100 ####[facility] [address] [place], [address] Hemoglobin (Bld) [Mass/Vol] 9.8 g/dL Low 12.0-15.0 [facility] Comment on above: Performed By: #### L 500.2500, L100.0100 ####[facility] [address] [place], [address] IG% 0.500 Normal 0.0-0.9 [facility] Comment on above: Result Comment: IG% - Immature Granulocytes (promyelocytes, myelocytes andmetamyelocytes) > 1% indicates that a LEFT SHIFT is Present. Performed By: #### L 500.2500, L100.0100 ####[facility] [address] [place], [address] Lymphocytes/100 WBC (Bld) 28.3 % Normal 19-41 [facility] Comment on above: Performed By: #### L 500.2500, L100.0100 ####[facility] [address] [place], [address] MCH (RBC) [Entitic mass] 31.0 pg Normal 27.0-32.0 [facility] Comment on above: Performed By: #### L 500.2500, L100.0100 ####[facility] [address] [place], [address] MCHC (RBC) [Mass/Vol] 32.8 g/dL Normal 32-36 [facility] Comment on above: Performed By: #### L 500.2500, L100.0100 ####[facility] [address] [place], [address] MCV (RBC) [Entitic vol] 94.6 fL Normal 81-99 [facility] Comment on above: Performed By: #### L 500.2500, L100.0100 ####[facility] [address] [place], [address] Monocytes/100 WBC (Bld) 10.9 % High 0-10 [facility] Comment on above: Performed By: #### L 500.2500, L100.0100 ####[facility] [address] [place], [address] Neutrophils/100 WBC (Bld) 55.4 % Normal 47-70 [facility] Comment on above: Performed By: #### L 500.2500, L100.0100 ####[facility] [address] [place], [address] Nucleated RBC (Bld) [#/Vol] 0 10*3/uL Normal 0-5 [facility] Comment on above: Performed By: #### L 500.2500, L100.0100 ####[facility] [address] [place], [address] Platelet mean volume (Bld) [Entitic vol] 10.4 fL Normal 6.2-12.0 [facility] Comment on above: Performed By: #### L 500.2500, L100.0100 ####[facility] [address] [place], [address] Platelets (Bld) [#/Vol] 212 10*3/uL Normal 150-450 [facility] Comment on above: Performed By: #### L 500.2500, L100.0100 ####[facility] [address] [place], [address] RBC (Bld) [#/Vol] 3.16 10*6/uL Low 4.2-5.4 [facility] Comment on above: Performed By: #### L 500.2500, L100.0100 ####[facility] [address] [place], [address] RDW SD 46.4 fl High 35.1-43.9 [facility] Comment on above: Performed By: #### L 500.2500, L100.0100 ####[facility] [address] [place], [address] WBC (Bld) [#/Vol] 6.4 10*3/uL Normal 4.4-11.0 [facility] Comment on above: Performed By: #### L 500.2500, L100.0100 ####[facility] [address] [place], [address] Basic Metabolic Profile (BMP )on 04-29-2025 BUN/CRE 15.0 RATIO Normal 10-20 [facility] Comment on above: Performed By: #### L 500.2500, L100.0100 ####[facility] [address] [place], [address] Calcium [Mass/Vol] 8.8 mg/dL Normal 7.6-11.0 [facility] Comment on above: Performed By: #### L 500.2500, L100.0100 ####[facility] [address] [place], [address] Chloride [Moles/Vol] 108 mmol/L Normal 98-108 [facility] Comment on above: Performed By: #### L 500.2500, L100.0100 ####[facility] [address] [place], [address] CO2 [Moles/Vol] 26.7 mmol/L Normal 21.0-32.0 [facility] Comment on above: Performed By: #### L 500.2500, L100.0100 ####[facility] [address] [place], [address] Creatinine [Mass/Vol] 0.94 mg/dL Normal 0.70-1.20 [facility] Comment on above: Performed By: #### L 500.2500, L100.0100 ####[facility] [address] [place], [address] ECRCL 52.06 ml/min Normal 50-250 [facility] Comment on above: Performed By: #### L 500.2500, L100.0100 ####[facility] [address] [place], [address] GAP 7 Normal 5-15 [facility] Comment on above: Performed By: #### L 500.2500, L100.0100 ####[facility] [address] [place], [address] GFR/1.73 sq M.predicted among non-blacks MDRD (S/P/Bld) [Vol rate/Area] 64 mL/min/{1.73_m2} Normal >60 [facility] Comment on above: Result Comment: mL/m in/1.73m2 CKD-EPI Creatinine Equation (2020) Performed By: #### L 500.2500, L100.0100 ####[facility] [address] [place], [address] Glucose [Mass/Vol] 138 mg/dL High 70-99 [facility] Comment on above: Performed By: #### L 500.2500, L100.0100 ####[facility] [address] [place], [address] Potassium [Moles/Vol] 4.4 mmol/L Normal 3.3-5.1 [facility] Comment on above: Performed By: #### L 500.2500, L100.0100 ####[facility] [address] [place], [address] Sodium [Moles/Vol] 142 mmol/L Normal 133-145 [facility] Comment on above: Performed By: #### L 500.2500, L100.0100 ####[facility] [address] [place], [address] Urea nitrogen [Mass/Vol] 14 mg/dL Normal 4-19 [facility] Comment on above: Performed By: #### L 500.2500, L100.0100 ####[facility] [address] [place], [address] Bedside Glucoseon 04-29-2024 FINGERSTICK GLU 132 mg/dL High 74-106 [facility] Comment on above: Result Comment: TORRES FRANKLIN OF PATIENT CARE PER NURSING PROTOCOL Performed By: #### L 501.080 ####[facility] [address] [place], [address] CBC W/Diff, Automatedon 06-0 Absolute Lymph 1.45 X10 3/uL Normal 0.83-4.51 [facility] Comment on above: Performed By: #### L 500.2500, L100.0100 ####[facility] [address] [place], [address] Absolute Neut 3.3 X10 3/uL Normal 2.0-7.7 [facility] Comment on above: Performed By: #### L 500.2500, L100.0100 ####[facility] [address] [place], [address] Basophils/100 WBC (Bld) 0.5 % Normal 0-1 [facility] Comment on above: Performed By: #### L 500.2500, L100.0100 ####[facility] [address] [place], [address] Eosinophils/100 WBC (Bld) 4.5 % Normal 0-5 [facility] Comment on above: Performed By: #### L 500.2500, L100.0100 ####[facility] [address] [place], [address] Erythrocyte distribution width (RBC) [Ratio] 13.5 % Normal 11.6-14.6 [facility] Comment on above: Performed By: #### L 500.2500, L100.0100 ####[facility] [address] [place], [address] Hematocrit (Bld) [Volume fraction] 28.7 % Low 37-47 [facility] Comment on above: Performed By: #### L 500.2500, L100.0100 ####[facility] [address] [place], [address] Hemoglobin (Bld) [Mass/Vol] 9.5 g/dL Low 12.0-15.0 [facility] Comment on above: Performed By: #### L 500.2500, L100.0100 ####[facility] [address] [place], [address] IG% 0.300 Normal 0.0-0.9 [facility] Comment on above: Result Comment: IG% - Immature Granulocytes (promyelocytes, myelocytes andmetamyelocytes) > 1% indicates that a LEFT SHIFT is Present. Performed By: #### L 500.2500, L100.0100 ####[facility] [address] [place], [address] Lymphocytes/100 WBC (Bld) 25.3 % Normal 19-41 [facility] Comment on above: Performed By: #### L 500.2500, L100.0100 ####[facility] [address] [place], [address] MCH (RBC) [Entitic mass] 31.5 pg Normal 27.0-32.0 [facility] Comment on above: Performed By: #### L 500.2500, L100.0100 ####[facility] [address] [place], [address] MCHC (RBC) [Mass/Vol] 33.1 g/dL Normal 32-36 [facility] Comment on above: Performed By: #### L 500.2500, L100.0100 ####[facility] [address] [place], [address] MCV (RBC) [Entitic vol] 95.0 fL Normal 81-99 [facility] Comment on above: Performed By: #### L 500.2500, L100.0100 ####[facility] [address] [place], [address] Monocytes/100 WBC (Bld) 11.2 % High 0-10 [facility] Comment on above: Performed By: #### L 500.2500, L100.0100 ####[facility] [address] [place], [address] Neutrophils/100 WBC (Bld) 58.2 % Normal 47-70 [facility] Comment on above: Performed By: #### L 500.2500, L100.0100 ####[facility] [address] [place], [address] Nucleated RBC (Bld) [#/Vol] 0 10*3/uL Normal 0-5 [facility] Comment on above: Performed By: #### L 500.2500, L100.0100 ####[facility] [address] [place], [address] Platelet mean volume (Bld) [Entitic vol] 9.9 fL Normal 6.2-12.0 [facility] Comment on above: Performed By: #### L 500.2500, L100.0100 ####[facility] [address] [place], [address] Platelets (Bld) [#/Vol] 193 10*3/uL Normal 150-450 [facility] Comment on above: Performed By: #### L 500.2500, L100.0100 ####[facility] [address] [place], [address] RBC (Bld) [#/Vol] 3.02 10*6/uL Low 4.2-5.4 [facility] Comment on above: Performed By: #### L 500.2500, L100.0100 ####[facility] [address] [place], [address] RDW SD 46.9 fl High 35.1-43.9 [facility] Comment on above: Performed By: #### L 500.2500, L100.0100 ####[facility] [address] [place], [address] WBC (Bld) [#/Vol] 5.7 10*3/uL Normal 4.4-11.0 [facility] Comment on above: Performed By: #### L 500.2500, L100.0100 ####[facility] [address] [place], [address] Basic Metabolic Profile (BMP )on 04-28-2025 BUN/CRE 15.9 RATIO Normal 10-20 [facility] Comment on above: Performed By: #### L 100.0100, L500.2500 ####[facility] [address] [place], [address] Calcium [Mass/Vol] 8.7 mg/dL Normal 7.6-11.0 [facility] Comment on above: Performed By: #### L 100.0100, L500.2500 ####[facility] [address] [place], [address] Chloride [Moles/Vol] 105 mmol/L Normal 98-108 [facility] Comment on above: Performed By: #### L 100.0100, L500.2500 ####[facility] [address] [place], [address] CO2 [Moles/Vol] 25.9 mmol/L Normal 21.0-32.0 [facility] Comment on above: Performed By: #### L 100.0100, L500.2500 ####[facility] [address] [place], [address] Creatinine [Mass/Vol] 0.97 mg/dL Normal 0.70-1.20 [facility] Comment on above: Performed By: #### L 100.0100, L500.2500 ####[facility] [address] [place], [address] ECRCL 50.45 ml/min Normal 50-250 [facility] Comment on above: Performed By: #### L 100.0100, L500.2500 ####[facility] [address] [place], [address] GAP 9 Normal 5-15 [facility] Comment on above: Performed By: #### L 100.0100, L500.2500 ####[facility] [address] [place], [address] GFR/1.73 sq M.predicted among non-blacks MDRD (S/P/Bld) [Vol rate/Area] 62 mL/min/{1.73_m2} Normal >60 [facility] Comment on above: Result Comment: mL/m in/1.73m2 CKD-EPI Creatinine Equation (2020) Performed By: #### L 100.0100, L500.2500 ####[facility] [address] [place], [address] Glucose [Mass/Vol] 140 mg/dL High 70-99 [facility] Comment on above: Performed By: #### L 100.0100, L500.2500 ####[facility] [address] [place], [address] Potassium [Moles/Vol] 3.8 mmol/L Normal 3.3-5.1 [facility] Comment on above: Performed By: #### L 100.0100, L500.2500 ####[facility] [address] [place], [address] Sodium [Moles/Vol] 140 mmol/L Normal 133-145 [facility] Comment on above: Performed By: #### L 100.0100, L500.2500 ####[facility] [address] [place], [address] Urea nitrogen [Mass/Vol] 15 mg/dL Normal 4-19 [facility] Comment on above: Performed By: #### L 100.0100, L500.2500 ####[facility] [address] [place], [address] Bedside Glucoseon 04-28-2025 FINGERSTICK GLU 155 mg/dL High 74-106 [facility] Comment on above: Result Comment: TORRES GEMENT OF PATIENT CARE PER NURSING PROTOCOL Performed By: #### L 501.080 ####[facility] [address] [place], [address] FINGERSTICK GLU 120 mg/dL High 74-106 [facility] Comment on above: Result Comment: TORRES GEMENT OF PATIENT CARE PER NURSING PROTOCOL Performed By: #### L 501.080 ####[facility] [address] [place], [address] CBC W/Diff, Automatedon 06-0 7-2024 Absolute Lymph 1.57 X10 3/uL Normal 0.83-4.51 [facility] Comment on above: Performed By: #### L 100.0100, L500.2500 ####[facility] [address] [place], [address] Absolute Neut 3.1 X10 3/uL Normal 2.0-7.7 [facility] Comment on above: Performed By: #### L 100.0100, L500.2500 ####[facility] [address] [place], [address] Basophils/100 WBC (Bld) 0.5 % Normal 0-1 [facility] Comment on above: Performed By: #### L 100.0100, L500.2500 ####[facility] [address] [place], [address] Eosinophils/100 WBC (Bld) 3.7 % Normal 0-5 [facility] Comment on above: Performed By: #### L 100.0100, L500.2500 ####[facility] [address] [place], [address] Erythrocyte distribution width (RBC) [Ratio] 13.3 % Normal 11.6-14.6 [facility] Comment on above: Performed By: #### L 100.0100, L500.2500 ####[facility] [address] [place], [address] Hematocrit (Bld) [Volume fraction] 27.9 % Low 37-47 [facility] Comment on above: Performed By: #### L 100.0100, L500.2500 ####[facility] [address] [place], [address] Hemoglobin (Bld) [Mass/Vol] 9.1 g/dL Low 12.0-15.0 [facility] Comment on above: Performed By: #### L 100.0100, L500.2500 ####[facility] [id number] [place], [address] IG% 0.200 Normal 0.0-0.9 [facility] Comment on above: Result Comment: IG% - Immature Granulocytes (promyelocytes, myelocytes andmetamyelocytes) > 1% indicates that a LEFT SHIFT is Present. Performed By: #### L 100.0100, L500.2500 ####[facility] [id number] [place], [address] Lymphocytes/100 WBC (Bld) 28.7 % Normal 19-41 [facility] Comment on above: Performed By: #### L 100.0100, L500.2500 ####[facility] [id number] [place], [address] MCH (RBC) [Entitic mass] 30.8 pg Normal 27.0-32.0 [facility] Comment on above: Performed By: #### L 100.0100, L500.2500 ####[facility] [address] [place], [address] MCHC (RBC) [Mass/Vol] 32.6 g/dL Normal 32-36 [facility] Comment on above: Performed By: #### L 100.0100, L500.2500 ####[facility] [address] [place], [address] MCV (RBC) [Entitic vol] 94.6 fL Normal 81-99 [facility] Comment on above: Performed By: #### L 100.0100, L500.2500 ####[facility] [address] [place], [address] Monocytes/100 WBC (Bld) 10.1 % High 0-10 [facility] Comment on above: Performed By: #### L 100.0100, L500.2500 ####[facility] [address] [place], [address] Neutrophils/100 WBC (Bld) 56.8 % Normal 47-70 [facility] Comment on above: Performed By: #### L 100.0100, L500.2500 ####[facility] [address] [place], [address] Nucleated RBC (Bld) [#/Vol] 0 10*3/uL Normal 0-5 [facility] Comment on above: Performed By: #### L 100.0100, L500.2500 ####[facility] [address] [place], [address] Platelet mean volume (Bld) [Entitic vol] 10.3 fL Normal 6.2-12.0 [facility] Comment on above: Performed By: #### L 100.0100, L500.2500 ####[facility] [address] [place], [address] Platelets (Bld) [#/Vol] 199 10*3/uL Normal 150-450 [facility] Comment on above: Performed By: #### L 100.0100, L500.2500 ####[facility] [address] [place], [address] RBC (Bld) [#/Vol] 2.95 10*6/uL Low 4.2-5.4 [facility] Comment on above: Performed By: #### L 100.0100, L500.2500 ####[facility] [address] [place], [address] RDW SD 45.7 fl High 35.1-43.9 [facility] Comment on above: Performed By: #### L 100.0100, L500.2500 ####[facility] [address] [place], [address] WBC (Bld) [#/Vol] 5.5 10*3/uL Normal 4.4-11.0 [facility] Comment on above: Performed By: #### L 100.0100, L500.2500 ####[facility] [address] [place], [address] Basic Metabolic Profile (BMP )on 04-27-2025 BUN/CRE 12.8 RATIO Normal 10-20 [facility] Comment on above: Performed By: #### L 500.2500, L100.0100 ####[facility] [address] [place], [address] Calcium [Mass/Vol] 8.7 mg/dL Normal 7.6-11.0 [facility] Comment on above: Performed By: #### L 500.2500, L100.0100 ####[facility] [address] [place], [address] Chloride [Moles/Vol] 107 mmol/L Normal 98-108 [facility] Comment on above: Performed By: #### L 500.2500, L100.0100 ####[facility] [address] [place], [address] CO2 [Moles/Vol] 25.1 mmol/L Normal 21.0-32.0 [facility] Comment on above: Performed By: #### L 500.2500, L100.0100 ####[facility] [address] [place], [address] Creatinine [Mass/Vol] 0.95 mg/dL Normal 0.70-1.20 [facility] Comment on above: Performed By: #### L 500.2500, L100.0100 ####[facility] [address] [place], [address] ECRCL 51.52 ml/min Normal 50-250 [facility] Comment on above: Performed By: #### L 500.2500, L100.0100 ####[facility] [address] [place], [address] GAP 9 Normal 5-15 [facility] Comment on above: Performed By: #### L 500.2500, L100.0100 ####[facility] [address] [place], [address] GFR/1.73 sq M.predicted among non-blacks MDRD (S/P/Bld) [Vol rate/Area] 63 mL/min/{1.73_m2} Normal >60 [facility] Comment on above: Result Comment: mL/m in/1.73m2 CKD-EPI Creatinine Equation (2020) Performed By: #### L 500.2500, L100.0100 ####[facility] [address] [place], [address] Glucose [Mass/Vol] 139 mg/dL High 70-99 [facility] Comment on above: Performed By: #### L 500.2500, L100.0100 ####[facility] [address] [place], [address] Potassium [Moles/Vol] 3.9 mmol/L Normal 3.3-5.1 [facility] Comment on above: Performed By: #### L 500.2500, L100.0100 ####[facility] [address] [place], [address] Sodium [Moles/Vol] 141 mmol/L Normal 133-145 [facility] Comment on above: Performed By: #### L 500.2500, L100.0100 ####[facility] [address] [place], [address] Urea nitrogen [Mass/Vol] 12 mg/dL Normal 4-19 [facility] Comment on above: Performed By: #### L 500.2500, L100.0100 ####[facility] [address] [place], [address] Bedside Glucoseon 04-27-2025 FINGERSTICK GLU 134 mg/dL High 74-106 [facility] Comment on above: Result Comment: TORRES GEMENT OF PATIENT CARE PER NURSING PROTOCOL Performed By: #### L 501.080 ####[facility] [address] [place], [address] FINGERSTICK GLU 158 mg/dL High 74-106 [facility] Comment on above: Result Comment: TORRES GEMENT OF PATIENT CARE PER NURSING PROTOCOL Performed By: #### L 501.080 ####[facility] [address] [place], [address] CBC W/Diff, Automatedon 06-0 Absolute Lymph 1.65 X10 3/uL Normal 0.83-4.51 [facility] Comment on above: Performed By: #### L 500.2500, L100.0100 ####[facility] [address] [place], [address] Absolute Neut 2.8 X10 3/uL Normal 2.0-7.7 [facility] Comment on above: Performed By: #### L 500.2500, L100.0100 ####[facility] [address] [place], [address] Basophils/100 WBC (Bld) 0.4 % Normal 0-1 [facility] Comment on above: Performed By: #### L 500.2500, L100.0100 ####[facility] [address] [place], [address] Eosinophils/100 WBC (Bld) 3.2 % Normal 0-5 [facility] Comment on above: Performed By: #### L 500.2500, L100.0100 ####[facility] [address] [place], [address] Erythrocyte distribution width (RBC) [Ratio] 13.4 % Normal 11.6-14.6 [facility] Comment on above: Performed By: #### L 500.2500, L100.0100 ####[facility] [address] [place], [address] Hematocrit (Bld) [Volume fraction] 27.8 % Low 37-47 [facility] Comment on above: Performed By: #### L 500.2500, L100.0100 ####[facility] [address] [place], [address] Hemoglobin (Bld) [Mass/Vol] 9.0 g/dL Low 12.0-15.0 [facility] Comment on above: Performed By: #### L 500.2500, L100.0100 ####[facility] [address] [place], [address] IG% 0.400 Normal 0.0-0.9 [facility] Comment on above: Result Comment: IG% - Immature Granulocytes (promyelocytes, myelocytes andmetamyelocytes) > 1% indicates that a LEFT SHIFT is Present. Performed By: #### L 500.2500, L100.0100 ####[facility] [address] [place], [address] Lymphocytes/100 WBC (Bld) 31.1 % Normal 19-41 [facility] Comment on above: Performed By: #### L 500.2500, L100.0100 ####[facility] [address] [place], [address] MCH (RBC) [Entitic mass] 30.8 pg Normal 27.0-32.0 [facility] Comment on above: Performed By: #### L 500.2500, L100.0100 ####[facility] [address] [place], [address] MCHC (RBC) [Mass/Vol] 32.4 g/dL Normal 32-36 [facility] Comment on above: Performed By: #### L 500.2500, L100.0100 ####[facility] [address] [place], [address] MCV (RBC) [Entitic vol] 95.2 fL Normal 81-99 [facility] Comment on above: Performed By: #### L 500.2500, L100.0100 ####[facility] [address] [place], [address] Monocytes/100 WBC (Bld) 12.2 % High 0-10 [facility] Comment on above: Performed By: #### L 500.2500, L100.0100 ####[facility] [address] [place], [address] Neutrophils/100 WBC (Bld) 52.7 % Normal 47-70 [facility] Comment on above: Performed By: #### L 500.2500, L100.0100 ####[facility] [address] [place], [address] Nucleated RBC (Bld) [#/Vol] 0 10*3/uL Normal 0-5 [facility] Comment on above: Performed By: #### L 500.2500, L100.0100 ####[facility] [address] [place], [address] Platelet mean volume (Bld) [Entitic vol] 9.9 fL Normal 6.2-12.0 [facility] Comment on above: Performed By: #### L 500.2500, L100.0100 ####[facility] [address] [place], [address] Platelets (Bld) [#/Vol] 202 10*3/uL Normal 150-450 [facility] Comment on above: Performed By: #### L 500.2500, L100.0100 ####[facility] [address] [place], [address] RBC (Bld) [#/Vol] 2.92 10*6/uL Low 4.2-5.4 [facility] Comment on above: Performed By: #### L 500.2500, L100.0100 ####[facility] [address] [place], [address] RDW SD 46.8 fl High 35.1-43.9 [facility] Comment on above: Performed By: #### L 500.2500, L100.0100 ####[facility] [address] [place], [address] WBC (Bld) [#/Vol] 5.3 10*3/uL Normal 4.4-11.0 [facility] Comment on above: Performed By: #### L 500.2500, L100.0100 ####[facility] [address] [place], [address] Bedside Glucoseon 04-26-2025 FINGERSTICK GLU 163 mg/dL High [address] [facility] Comment on above: Result Comment: TORRES GEMENT OF PATIENT CARE PER NURSING PROTOCOL Performed By: #### L 501.080 ####[facility] [address] [place], [address] FINGERSTICK GLU 147 mg/dL High [address] [place] [address] Comment on above: Result Comment: TORRES GEMENT OF PATIENT CARE PER NURSING PROTOCOL Performed By: #### L 501.080 ####[facility] [address] [place], [address] Bedside Glucoseon 04-25-2025 FINGERSTICK GLU 200 mg/dL High [address] [place] [address] Comment on above: Result Comment: TORRES GEMENT OF PATIENT CARE PER NURSING PROTOCOL Performed By: #### L 501.080 ####[facility] [address] [place], [address] FINGERSTICK GLU 225 mg/dL High [address] [place] [address] Comment on above: Result Comment: TORRES GEMENT OF PATIENT CARE PER NURSING PROTOCOL Performed By: #### L 501.080 ####[facility] [address] [facility] [id number] Colonoscopy Reporton 025 Colonoscopy Report Normal [facility] EGD Reporton 04-25-2025 EGD Report Normal [facility] Glucose measurement at [facility] deOrdered By: Alonso Marte on 04-25-2025 Glucose [Mass/Vol] 200 mg/dL High 74-106 [facility] Glucose measurement at [facility] deOrdered By: Shan Lockett on 04-25-2025 Glucose [Mass/Vol] 225 mg/dL High 74-106 [facility] Comment on above: MANAGEMENT OF PATIEN T CARE PER NURSING PROTOCOL MR/POSTOP.ANEon 04-25-2025 MR/POSTOP.ANE Normal [facility] MR/HIOXKMMB2pa 04-25-2025 MR/POSTOPAN2 Normal [facility] Surgery Specimen Level Macrina 04-25-2025 Surgery Specimen Level IV Normal [facility] Comment on above: Performed By: #### P SUIV ####[facility] [address] [facility] [id number] Bedside Glucoseon 04-24-2025 FINGERSTICK GLU 128 mg/dL High 74-106 [facility] Comment on above: Result Comment: TORRES GEMENT OF PATIENT CARE PER NURSING PROTOCOL Performed By: #### L 501.080 ####[facility] [address] [facility] [address] FINGERSTICK GLU 142 mg/dL High -106 [facility] Comment on above: Result Comment: TORRES GEMENT OF PATIENT CARE PER NURSING PROTOCOL Performed By: #### L 501.080 ####[facility] [address] [facility] [id number] Bedside Glucoseon 04-23-2025 FINGERSTICK GLU 166 mg/dL High -106 [facility] Comment on above: Result Comment: TORRES GEMENT OF PATIENT CARE PER NURSING PROTOCOL Performed By: #### L 501.080 ####[facility] [address] [place], [address] FINGERSTICK GLU 197 mg/dL High 74-106 [facility] Comment on above: Result Comment: TORRES GEMENT OF PATIENT CARE PER NURSING PROTOCOL Performed By: #### L 501.080 ####[facility] [address] [place], [address] MR/PAT.ANEon 04-23-2025 MR/PAT.ANE Normal [facility] Bedside Glucoseon 04-22-2025 FINGERSTICK GLU 191 mg/dL High 74-106 [facility] Comment on above: Result Comment: TORRES GEMENT OF PATIENT CARE PER NURSING PROTOCOL Performed By: #### L 501.080 ####[facility] [address] [place], [address] FINGERSTICK GLU 170 mg/dL High 74-106 [facility] Comment on above: Result Comment: TORRES GEMENT OF PATIENT CARE PER NURSING PROTOCOL Performed By: #### L 501.080 ####[facility] [address] [place], [address] Calculated very low density lipoprotein (VLDL) cholesterol measurementOrdered By: Alonso Marte on 04-22-2025 Calculated very low density lipoprotein (VLDL) cholesterol measurement 33 mg/dL 5-40 [facility] Hemoglobin A1con 04-22-2025 HbA1c (Bld) [Mass fraction] 7.6 % High <=5.6 [facility] Comment on above: Result Comment: Norm al < 5.7 % Prediabetic 5.7 - 6.4 % Diabetic >or= 6.5 % Please note range changes. Performed By: #### L 500.4100, L501.9985 ####[facility] [address] [place], [address] Hemoglobin A1c percentageOrd ered By: Alonso Marte on 04-22-2025 HbA1c (Bld) [Mass fraction] 7.6 % High <5.7 [facility] Comment on above: Normal < 5.7 % Predi abetic 5.7 - 6.4 % Diabetic >or= 6.5 % Please note range changes. LDL calc ser/plasOrdered By: Alonso Marte on 04-22-2025 Cholesterol in LDL [Mass/Vol] 31 mg/dL [facility] Comment on above: Gwyvckaeiz=089-532 m g/dL & Higher Mdge=907 mg/dL or greater Lipid Profileon 04-22-2025 CHOL:HDL 3.76 Normal [facility] Comment on above: Performed By: #### L 500.4100, L501.9985 ####[facility] [address] [place], [address] Cholesterol [Mass/Vol] 88 mg/dL Normal <=200 [facility] Comment on above: Result Comment: Chol esterol level, Desirable <200 mg/dLBorderline high cholesterol 200-239 mg/dLHigh cholesterol >=240 mg/dLRecommendations of the NCEP Adult Treatment Panel for thefollowing risk-cutoff thresholds for the [place] [facility] [place]. Performed By: #### L 500.4100, L501.9985 ####[facility] [address] [place], [address] Cholesterol in HDL [Mass/Vol] 23 mg/dL Low [facility] Comment on above: Result Comment: [place] Cholesterol Education Program (NCEP) guidelines:<40 mg/dL: Low HDL-cholesterol (major risk factor for CHD)>= 60 mg/dL: High HDL-cholesterol (negative risk factor forCHD)HDL-cholesterol is affected by a number of factors, e.g.smoking, exercise, hormones, sex and age. Performed By: #### L 500.4100, L501.9985 ####[facility] [address] [place], [address] Cholesterol in LDL [Mass/Vol] 31 mg/dL Normal [facility] Comment on above: Result Comment: Bord ehksnv=579-729 mg/dL Higher Xkcy=390 mg/dL or greater Performed By: #### L 500.4100, L501.9985 ####[facility] [address] [place], [address] Cholesterol in VLDL [Mass/Vol] 33 mg/dL Normal 5-40 [facility] Comment on above: Performed By: #### L 500.4100, L501.9985 ####[facility] [address] [place], [address] Triglyceride [Mass/Vol] 166 mg/dL Normal [facility] Comment on above: Result Comment: The drugs N-Acetylcysteine and Metamizole may falselydepress this assay.Normal range: <150 mg/dLBorderline High: 150-199 mg/dLHigh: 200-499 mg/dLVery High: >500 mg/dL Performed By: #### L 500.4100, L501.9985 ####[facility] [address] [place], [address] Screening total cholesterol/ high density lipoprotein (HDL) cholesterol ratioOrdered By: Alonso Marte on 04-22-2025 Cholesterol.total/Choles terol in HDL [Mass ratio] 3.76 {ratio} [facility] Serum or plasma cholesterol in HDL measurement (mass/volume)Ordered By: Alonso Marte on 04-22-2025 Cholesterol in HDL [Mass/Vol] 23 mg/dL Low >40 [facility] Comment on above: National Cholesterol Education Program (NCEP) guidelines:<40 mg/dL: Low HDL-cholesterol (major risk factor for CHD)>= 60 mg/dL: High HDL-cholesterol (negative risk factor for CHD)HDL-cholesterol is affected by a number of factors, e.g. smoking, exercise, hormones, sex and age. Serum or plasma cholesterol measurement (mass/volume)Ordered By: Alonso Marte on 04-22-2025 Cholesterol [Mass/Vol] 88 mg/dL <201 [facility] Comment on above: Cholesterol level, D esirable <200 mg/dLBorderline high cholesterol 200-239 mg/dLHigh cholesterol >=240 mg/dLRecommendations of the NCEP Adult Treatment Panel for the following risk-cutoff thresholds for the [place] population. Triglycerides measurementOrd ered By: Alonso Marte on 04-22-2025 Triglyceride [Mass/Vol] 166 mg/dL <199 [facility] Comment on above: The drugs N-Acetylcy steine and Metamizole may falsely depress this assay. Normal range: <150 mg/dLBorderline High: 150-199 mg/dLHigh: 200-499 mg/dLVery High: >500 mg/dL Absolute lymphocyte countOrd ered By: Alonso Marte on 04-21-2025 Lymphocytes Auto (Unsp spec) [#/Vol] 1.10 10*3/uL 0.83-4.51 [facility] Anion gap in Serum or Plasma Ordered By: Alonso Marte on 04-21-2025 Anion gap [Moles/Vol] 8 mmol/L - [facility] Automated lymphocyte count a s percentage of total leukocytesOrdered By: Alonso Marte on 04-21-2025 Lymphocytes/100 WBC Auto (Unsp spec) 18.6 % Low 19-41 [facility] BUN/creatinine ratioOrdered By: Alonso Marte on 04-21-2025 Urea nitrogen/Creatinine [Mass ratio] 15.0 mg/mg 10- [facility] Basic Metabolic Profile (BMP )on 04-21-2025 BUN/CRE 15.0 RATIO Normal - [facility] Comment on above: Performed By: #### L 500.2500, L100.0100 ####[facility] [address] [place], [address] Calcium [Mass/Vol] 9.0 mg/dL Normal 7.6-11.0 [facility] Comment on above: Performed By: #### L 500.2500, L100.0100 ####[facility] [address] [place], [address] Chloride [Moles/Vol] 107 mmol/L Normal 98-108 [facility] Comment on above: Performed By: #### L 500.2500, L100.0100 ####[facility] [address] [place], [address] CO2 [Moles/Vol] 27.7 mmol/L Normal 21.0-32.0 [facility] Comment on above: Performed By: #### L 500.2500, L100.0100 ####[facility] [address] [place], [address] Creatinine [Mass/Vol] 0.95 mg/dL Normal 0.70-1.20 [facility] Comment on above: Performed By: #### L 500.2500, L100.0100 ####[facility] [address] [place], [address] ECRCL 51.79 ml/min Normal 50-250 [facility] Comment on above: Performed By: #### L 500.2500, L100.0100 ####[facility] [address] [place], [address] GAP 8 Normal 5-15 [facility] Comment on above: Performed By: #### L 500.2500, L100.0100 ####[facility] [address] [place], [address] GFR/1.73 sq M.predicted among non-blacks MDRD (S/P/Bld) [Vol rate/Area] 64 mL/min/{1.73_m2} Normal >60 [facility] Comment on above: Result Comment: mL/m in/1.73m2 CKD-EPI Creatinine Equation (2020) Performed By: #### L 500.2500, L100.0100 ####[facility] [address] [place], [address] Glucose [Mass/Vol] 185 mg/dL High 70-99 [facility] Comment on above: Performed By: #### L 500.2500, L100.0100 ####[facility] [address] [place], [address] Potassium [Moles/Vol] 4.3 mmol/L Normal 3.3-5.1 [facility] Comment on above: Performed By: #### L 500.2500, L100.0100 ####[facility] [address] [place], [address] Sodium [Moles/Vol] 142 mmol/L Normal 133-145 [facility] Comment on above: Performed By: #### L 500.2500, L100.0100 ####[facility] [address] [place], [address] Urea nitrogen [Mass/Vol] 14 mg/dL Normal 4-19 [facility] Comment on above: Performed By: #### L 500.2500, L100.0100 ####[facility] [address] [place], [address] Basophil percentageOrdered B y: Alonso Conteok on 04-21-2025 Basophils/100 WBC (Bld) 0.3 % 0-1 [facility] Bedside Glucoseon 04-21-2025 FINGERSTICK GLU 139 mg/dL High 74-106 [facility] Comment on above: Result Comment: TORRES GEMENT OF PATIENT CARE PER NURSING PROTOCOL Performed By: #### L 501.080 ####[facility] [address] [place], [address] FINGERSTICK GLU 165 mg/dL High 74-106 [facility] Comment on above: Result Comment: TORRES GEMENT OF PATIENT CARE PER NURSING PROTOCOL Performed By: #### L 501.080 ####[facility] [address] [place], [address] CBC W/Diff, Automatedon - Absolute Lymph 1.10 X10 3/uL Normal 0.83-4.51 [facility] Comment on above: Performed By: #### L 500.2500, L100.0100 ####[facility] [address] [place], [address] Absolute Neut 4.2 X10 3/uL Normal 2.0-7.7 [facility] Comment on above: Performed By: #### L 500.2500, L100.0100 ####[facility] [address] [place], [address] Basophils/100 WBC (Bld) 0.3 % Normal 0-1 [facility] Comment on above: Performed By: #### L 500.2500, L100.0100 ####[facility] [address] [place], [address] Eosinophils/100 WBC (Bld) 2.7 % Normal 0-5 [facility] Comment on above: Performed By: #### L 500.2500, L100.0100 ####[facility] [address] [place], [address] Erythrocyte distribution width (RBC) [Ratio] 13.9 % Normal 11.6-14.6 [facility] Comment on above: Performed By: #### L 500.2500, L100.0100 ####[facility] [address] [place], [address] Hematocrit (Bld) [Volume fraction] 30.3 % Low 37-47 [facility] Comment on above: Performed By: #### L 500.2500, L100.0100 ####[facility] [address] [place], [address] Hemoglobin (Bld) [Mass/Vol] 9.7 g/dL Low 12.0-15.0 [facility] Comment on above: Performed By: #### L 500.2500, L100.0100 ####[facility] [address] [place], [address] IG% 0.300 Normal 0.0-0.9 [facility] Comment on above: Result Comment: IG% - Immature Granulocytes (promyelocytes, myelocytes andmetamyelocytes) > 1% indicates that a LEFT SHIFT is Present. Performed By: #### L 500.2500, L100.0100 ####[facility] [address] [place], [address] Lymphocytes/100 WBC (Bld) 18.6 % Low 19-41 [facility] Comment on above: Performed By: #### L 500.2500, L100.0100 ####[facility] [address] [place], [address] MCH (RBC) [Entitic mass] 31.1 pg Normal 27.0-32.0 [facility] Comment on above: Performed By: #### L 500.2500, L100.0100 ####[facility] [address] [place], [address] MCHC (RBC) [Mass/Vol] 32.0 g/dL Normal 32-36 [facility] Comment on above: Performed By: #### L 500.2500, L100.0100 ####[facility] [address] [place], [address] MCV (RBC) [Entitic vol] 97.1 fL Normal 81-99 [facility] Comment on above: Performed By: #### L 500.2500, L100.0100 ####[facility] [address] [place], [address] Monocytes/100 WBC (Bld) 7.5 % Normal 0-10 [facility] Comment on above: Performed By: #### L 500.2500, L100.0100 ####[facility] [address] [place], [address] Neutrophils/100 WBC (Bld) 70.6 % High 47-70 [facility] Comment on above: Performed By: #### L 500.2500, L100.0100 ####[facility] [address] [place], [address] Nucleated RBC (Bld) [#/Vol] 0 10*3/uL Normal 0-5 [facility] Comment on above: Performed By: #### L 500.2500, L100.0100 ####[facility] [address] [place], [address] Platelet mean volume (Bld) [Entitic vol] 10.3 fL Normal 6.2-12.0 [facility] Comment on above: Performed By: #### L 500.2500, L100.0100 ####[facility] [address] [place], [address] Platelets (Bld) [#/Vol] 168 10*3/uL Normal 150-450 [facility] Comment on above: Performed By: #### L 500.2500, L100.0100 ####[facility] [address] [place], [address] RBC (Bld) [#/Vol] 3.12 10*6/uL Low 4.2-5.4 [facility] Comment on above: Performed By: #### L 500.2500, L100.0100 ####[facility] [address] [place], [address] RDW SD 49.7 fl High 35.1-43.9 [facility] Comment on above: Performed By: #### L 500.2500, L100.0100 ####[facility] [address] [place], [address] WBC (Bld) [#/Vol] 5.9 10*3/uL Normal 4.4-11.0 [facility] Comment on above: Performed By: #### L 500.2500, L100.0100 ####[facility] [address] [place], [address] Carbon dioxide, total [Moles /volume] in Central venous bloodOrdered By: Alonso Marte on 04-21-2025 CO2 [Moles/Vol] 27.7 mmol/L 21.0-32.0 [facility] Chloride assayOrdered By: Rm Marte on 04-21-2025 Chloride [Moles/Vol] 107 mmol/L 98-108 [facility] Eosinophil percentageOrdered By: Alonso Marte on 04-21-2025 Eosinophils/100 WBC (Bld) 2.7 % 0-5 [facility] Erythrocyte distribution wid th ratioOrdered By: Alonso Marte 04-21-2025 Erythrocyte distribution width (RBC) [Ratio] 13.9 % 11.6-14.6 [facility] Erythrocyte distribution wid th standard deviationOrdered By: Alonso Marte 04-21-2025 Erythrocyte distribution width (RBC) [Ratio] 49.7 fl High 35.1-43.9 [facility] Glomerular filtration rate ( GFR) estimation/1.73 sq m using serum, plasma, or whole bOrdered By: Alonso Marte on 04-21-2025 GFR/1.73 sq M.predicted among non-blacks MDRD (S/P/Bld) [Vol rate/Area] 64 mL/min/{1.73_m2} >60 [facility] Hematocrit Auto (Bld) [Volum e fraction]Ordered By: Alonso Marte 04-21-2025 Hematocrit (Bld) [Volume fraction] 30.3 % Low 37-47 [facility] Health Hemoglobin measurementOrdere d By: Alonso Marte 04-21-2025 Hemoglobin (Bld) [Mass/Vol] 9.7 g/dL Low 12.0-15.0 [facility] Immature granulocytes/100 WB C Auto (Bld)Ordered By: Alonso Marte 04-21-2025 Immature granulocytes/100 WBC (Bld) 0.300 % 0.0-0.9 [facility] MCV (mean corpuscular volume ) determinationOrdered By: Alonso Marte 04-21-2025 MCV (RBC) [Entitic vol] 97.1 fL 81-99 [facility] Mean corpuscular hemoglobin (MCH) determinationOrdered By: Alonso Marte 04-21-2025 MCH (RBC) [Entitic mass] 31.1 pg 27.0-32.0 [facility] Monocyte percentageOrdered B y: Alonso Marte 04-21-2025 Monocytes/100 WBC (Bld) 7.5 % 0-10 [facility] Neutrophil percentageOrdered By: Alonso Marte on 04-21-2025 Neutrophils/100 WBC (Bld) 70.6 % High 47-70 [facility] Platelet countOrdered By: Rm Marte on 04-21-2025 Platelets (Bld) [#/Vol] 168 10*3/uL 150-450 [facility] Potassium measurement (mass/ volume)Ordered By: Alonso Marte on 04-21-2025 Potassium (Unsp spec) [Mass/Vol] 4.3 mmol/L 3.3-5.1 [facility] RBC Auto (Bld) [#/Vol]Ordere d By: Alonso Marte on 04-21-2025 RBC (Bld) [#/Vol] 3.12 10*6/uL Low 4.2-5.4 [facility] Serum creatinine measurement (mass/volume)Ordered By: Alonso Marte on 04-21-2025 Creatinine [Mass/Vol] 0.95 mg/dL 0.70-1.20 [facility] Serum glucose measurement (m ass/volume)Ordered By: Alonso Marte on 04-21-2025 Glucose [Mass/Vol] 185 mg/dL High 70-99 [facility] Serum or plasma calcium loco urement (mass/volume)Ordered By: Alonso Marte on 04-21-2025 Calcium [Mass/Vol] 9.0 mg/dL 7.6-11.0 [facility] Serum or plasma urea nitroge n measurement (mass/volume)Ordered By: Alonso Marte on 04-21-2025 Urea nitrogen [Mass/Vol] 14 mg/dL 4-19 [facility] Sodium levelOrdered By: Alonso Marte on 04-21-2025 Sodium [Moles/Vol] 142 mmol/L 133-145 [facility] White blood cell (WBC) count Ordered By: Alonso Marte on 04-21-2025 WBC (Bld) [#/Vol] 5.9 10*3/uL 4.4-11.0 [facility] Anion gap in Serum or Plasma Ordered By: Maximo Orosco on 04-20-2025 Anion gap [Moles/Vol] 10 mmol/L 5-15 [facility] BUN/creatinine ratioOrdered By: Maximo Orosco on 04-20-2025 Urea nitrogen/Creatinine [Mass ratio] 13.4 mg/mg 10- [facility] Basic Metabolic Profile (BMP )on 04-20-2025 BUN/CRE 13.4 RATIO Normal - [facility] Comment on above: Performed By: #### L 100.0500, L500.2500 ####[facility] [address] [place], [address] Calcium [Mass/Vol] 8.7 mg/dL Normal 7.6-11.0 [facility] Comment on above: Performed By: #### L 100.0500, L500.2500 ####[facility] [address] [place], [address] Chloride [Moles/Vol] 105 mmol/L Normal 98-108 [facility] Comment on above: Performed By: #### L 100.0500, L500.2500 ####[facility] [address] [place], [address] CO2 [Moles/Vol] 23.8 mmol/L Normal 21.0-32.0 [facility] Comment on above: Performed By: #### L 100.0500, L500.2500 ####[facility] [address] [place], [address] Creatinine [Mass/Vol] 0.88 mg/dL Normal 0.70-1.20 [facility] Comment on above: Performed By: #### L 100.0500, L500.2500 ####[facility] [address] [place], [address] ECRCL 56.56 ml/min Normal 50-250 [facility] Comment on above: Performed By: #### L 100.0500, L500.2500 ####[facility] [address] [place], [address] GAP 10 Normal 5-15 [facility] Comment on above: Performed By: #### L 100.0500, L500.2500 ####[facility] [address] [place], [address] GFR/1.73 sq M.predicted among non-blacks MDRD (S/P/Bld) [Vol rate/Area] 70 mL/min/{1.73_m2} Normal >60 [facility] Comment on above: Result Comment: mL/m in/1.73m2 CKD-EPI Creatinine Equation (2020) Performed By: #### L 100.0500, L500.2500 ####[facility] [address] [place], [address] Glucose [Mass/Vol] 188 mg/dL High 70-99 [facility] Comment on above: Performed By: #### L 100.0500, L500.2500 ####[facility] [address] [place], [address] Potassium [Moles/Vol] 3.9 mmol/L Normal 3.3-5.1 [facility] Comment on above: Result Comment: Hemo lysis present, Results??could be affected.?? Performed By: #### L 100.0500, L500.2500 ####[facility] [address] [place], [address] Sodium [Moles/Vol] 138 mmol/L Normal 133-145 [facility] Comment on above: Performed By: #### L 100.0500, L500.2500 ####[facility] [address] [place], [address] Urea nitrogen [Mass/Vol] 12 mg/dL Normal 4-19 [facility] Comment on above: Performed By: #### L 100.0500, L500.2500 ####[facility] [address] [place], [address] Bedside Glucoseon 04-20-2025 FINGERSTICK GLU 177 mg/dL High 74-106 [facility] Comment on above: Result Comment: TORRES GEMENT OF PATIENT CARE PER NURSING PROTOCOL Performed By: #### L 501.080 ####[facility] [address] [place], [address] FINGERSTICK GLU 225 mg/dL High 74-106 [facility] Comment on above: Result Comment: TORRES GEMENT OF PATIENT CARE PER NURSING PROTOCOL Performed By: #### L 501.080 ####[facility] [address] [place], [address] FINGERSTICK GLU 197 mg/dL High 74-106 [facility] Comment on above: Result Comment: TORRES GEMENT OF PATIENT CARE PER NURSING PROTOCOL Performed By: #### L 501.080 ####[facility] [address] [place], [address] CBC-Complete Blood Cnt No Di ffon 04-20-2025 Erythrocyte distribution width (RBC) [Ratio] 13.7 % Normal 11.6-14.6 [facility] Comment on above: Performed By: #### L 100.0500, L500.2500 ####[facility] [address] [place], [address] Hematocrit (Bld) [Volume fraction] 28.7 % Low 37-47 [facility] Comment on above: Performed By: #### L 100.0500, L500.2500 ####[facility] [address] [place], [address] Hemoglobin (Bld) [Mass/Vol] 9.6 g/dL Low 12.0-15.0 [facility] Comment on above: Performed By: #### L 100.0500, L500.2500 ####[facility] [address] [place], [address] MCH (RBC) [Entitic mass] 31.3 pg Normal 27.0-32.0 [facility] Comment on above: Performed By: #### L 100.0500, L500.2500 ####[facility] [address] [place], [address] MCHC (RBC) [Mass/Vol] 33.4 g/dL Normal 32-36 [facility] Comment on above: Performed By: #### L 100.0500, L500.2500 ####[facility] [address] [place], [address] MCV (RBC) [Entitic vol] 93.5 fL Normal 81-99 [facility] Comment on above: Performed By: #### L 100.0500, L500.2500 ####[facility] [address] [place], [address] Platelet mean volume (Bld) [Entitic vol] 10.7 fL Normal 6.2-12.0 [facility] Comment on above: Performed By: #### L 100.0500, L500.2500 ####[facility] [address] [place], [address] Platelets (Bld) [#/Vol] 175 10*3/uL Normal 150-450 [facility] Comment on above: Performed By: #### L 100.0500, L500.2500 ####[facility] [address] [place], [address] RBC (Bld) [#/Vol] 3.07 10*6/uL Low 4.2-5.4 [facility] Comment on above: Performed By: #### L 100.0500, L500.2500 ####[facility] [address] [place], [address] RDW SD 46.6 fl High 35.1-43.9 [facility] Comment on above: Performed By: #### L 100.0500, L500.2500 ####[facility] [address] [place], [address] WBC (Bld) [#/Vol] 6.0 10*3/uL Normal 4.4-11.0 [facility] Comment on above: Performed By: #### L 100.0500, L500.2500 ####[facility] [address] [place], [address] Carbon dioxide, total [Moles /volume] in Central venous bloodOrdered By: Maximo Orosco on 04-20-2025 CO2 [Moles/Vol] 23.8 mmol/L 21.0-32.0 [facility] Chloride assayOrdered By: Sam Orosco on 04-20-2025 Chloride [Moles/Vol] 105 mmol/L 98-108 [facility] Erythrocyte distribution wid th ratioOrdered By: Maximo Orosco on 04-20-2025 Erythrocyte distribution width (RBC) [Ratio] 13.7 % 11.6-14.6 [facility] Erythrocyte distribution wid th standard deviationOrdered By: Maximo Orosco on 04-20-2025 Erythrocyte distribution width (RBC) [Ratio] 46.6 fl High 35.1-43.9 [facility] Glomerular filtration rate ( GFR) estimation/1.73 sq m using serum, plasma, or whole bOrdered By: Maximo Orosco on 04-20-2025 GFR/1.73 sq M.predicted among non-blacks MDRD (S/P/Bld) [Vol rate/Area] 70 mL/min/{1.73_m2} >60 [facility] Comment on above: mL/min/1.73m2 CKD-EP I Creatinine Equation (2020) Glucose measurement at bedsi deOrdered By: Maximo Orosco on 04-20-2025 Glucose [Mass/Vol] 225 mg/dL High 74-106 [facility] Comment on above: MANAGEMENT OF PATIEN T CARE PER NURSING PROTOCOL Hematocrit Auto (Bld) [Volum e fraction]Ordered By: Maximo Orosco on 04-20-2025 Hematocrit (Bld) [Volume fraction] 28.7 % Low 37-47 [facility] Hemoglobin measurementOrdere d By: Maximo Orosco on 04-20-2025 Hemoglobin (Bld) [Mass/Vol] 9.6 g/dL Low 12.0-15.0 [facility] MCV (mean corpuscular volume ) determinationOrdered By: Maximo Orosco on 04-20-2025 MCV (RBC) [Entitic vol] 93.5 fL 81-99 [facility] Mean corpuscular hemoglobin (MCH) determinationOrdered By: Maximo Orosco on 04-20-2025 MCH (RBC) [Entitic mass] 31.3 pg 27.0-32.0 [facility] Mean corpuscular hemoglobin concentration (MCHC) determinationOrdered By: Maximo Orosco on 04-20-2025 MCHC (RBC) [Mass/Vol] 33.4 g/dL 32-36 [facility] Mean platelet volume determi nationOrdered By: Maximo Orosco on 04-20-2025 Platelet mean volume (Bld) [Entitic vol] 10.7 fL 6.2-12.0 [facility] Platelet countOrdered By: Sam Orosco on 04-20-2025 Platelets (Bld) [#/Vol] 175 10*3/uL 150-450 [facility] Potassium measurement (mass/ volume)Ordered By: Maximo Orosco on 04-20-2025 Potassium (Unsp spec) [Mass/Vol] 3.9 mmol/L 3.3-5.1 [facility] Comment on above: Hemolysis present, R esults could be affected. RBC Auto (Bld) [#/Vol]Ordere d By: Maximo Orosco on 04-20-2025 RBC (Bld) [#/Vol] 3.07 10*6/uL Low 4.2-5.4 [facility] Serum creatinine measurement (mass/volume)Ordered By: Maximo Orosco on 04-20-2025 Creatinine [Mass/Vol] 0.88 mg/dL 0.70-1.20 [facility] Serum glucose measurement (m ass/volume)Ordered By: Maximo Orosco on 04-20-2025 Glucose [Mass/Vol] 188 mg/dL High 70-99 [facility] Serum or plasma calcium loco urement (mass/volume)Ordered By: Maximo Orosco on 04-20-2025 Calcium [Mass/Vol] 8.7 mg/dL 7.6-11.0 [facility] Serum or plasma urea nitroge n measurement (mass/volume)Ordered By: Maximo Orosco on 04-20-2025 Urea nitrogen [Mass/Vol] 12 mg/dL 4-19 [facility] Sodium levelOrdered By: Pasquale Orosco on 04-20-2025 Sodium [Moles/Vol] 138 mmol/L 133-145 [facility] White blood cell (WBC) count Ordered By: Maximo Orosco on 04-20-2025 WBC (Bld) [#/Vol] 6.0 10*3/uL 4.4-11.0 [facility] 12 Lead EKGon 04-19-2025 12 Lead EKG Normal [facility] Absolute lymphocyte countOrd ered By: Romeo Padron on 04-19-2025 Lymphocytes Auto (Unsp spec) [#/Vol] 0.90 10*3/uL 0.83-4.51 [facility] Absolute neutrophil countOrd ered By: Romeo Padron on 04-19-2025 Neutrophils (Bld) [#/Vol] 6.8 10*3/uL 2.0-7.7 [facility] Anion gap in Serum or Plasma Ordered By: Romeo Padron on 04-19-2025 Anion gap [Moles/Vol] 10 mmol/L 5-15 [facility] Automated lymphocyte count a s percentage of total leukocytesOrdered By: Romeo Padron on 04-19-2025 Lymphocytes/100 WBC Auto (Unsp spec) 10.4 % Low 19-41 [facility] BUN/creatinine ratioOrdered By: Romeo Padron on 04-19-2025 Urea nitrogen/Creatinine [Mass ratio] 19.3 mg/mg 10-20 [facility] Basic Metabolic Profile (BMP )on 04-19-2025 BUN/CRE 19.3 RATIO Normal 10- [facility] Comment on above: Performed By: #### L 501.9520, L501.5200, L100.0100, L500.2500 ####[facility] [address] [place], [address] Calcium [Mass/Vol] 9.0 mg/dL Normal 7.6-11.0 [facility] Comment on above: Performed By: #### L 501.9520, L501.5200, L100.0100, L500.2500 ####[facility] [address] [place], [address] Chloride [Moles/Vol] 99 mmol/L Normal 98-108 [facility] Comment on above: Performed By: #### L 501.9520, L501.5200, L100.0100, L500.2500 ####[facility] [address] [place], [address] CO2 [Moles/Vol] 25.9 mmol/L Normal 21.0-32.0 [facility] Comment on above: Performed By: #### L 501.9520, L501.5200, L100.0100, L500.2500 ####[facility] [address] [place], [address] Creatinine [Mass/Vol] 1.02 mg/dL Normal 0.70-1.20 [facility] Comment on above: Performed By: #### L 501.9520, L501.5200, L100.0100, L500.2500 ####[facility] [address] [place], [address] ECRCL 50.29 ml/min Normal 50-250 [facility] Comment on above: Performed By: #### L 501.9520, L501.5200, L100.0100, L500.2500 ####[facility] [address] [place], [address] GAP 10 Normal 5-15 [facility] Comment on above: Performed By: #### L 501.9520, L501.5200, L100.0100, L500.2500 ####[facility] [address] [place], [address] GFR/1.73 sq M.predicted among non-blacks MDRD (S/P/Bld) [Vol rate/Area] 58 mL/min/{1.73_m2} Low >60 [facility] Comment on above: Result Comment: mL/m in/1.73m2 CKD-EPI Creatinine Equation (2020) Performed By: #### L 501.9520, L501.5200, L100.0100, L500.2500 ####[facility] [address] [place], [address] Glucose [Mass/Vol] 229 mg/dL High 70-99 [facility] Comment on above: Performed By: #### L 501.9520, L501.5200, L100.0100, L500.2500 ####[facility] [address] [place], [address] Potassium [Moles/Vol] 4.4 mmol/L Normal 3.3-5.1 [facility] Comment on above: Result Comment: Hemo lysis present, Results??could be affected.?? Performed By: #### L 501.9520, L501.5200, L100.0100, L500.2500 ####[facility] [address] [place], [address] Sodium [Moles/Vol] 135 mmol/L Normal 133-145 [facility] Comment on above: Performed By: #### L 501.9520, L501.5200, L100.0100, L500.2500 ####[facility] [address] [place], [address] Urea nitrogen [Mass/Vol] 20 mg/dL High 4-19 [facility] Comment on above: Performed By: #### L 501.9520, L501.5200, L100.0100, L500.2500 ####[facility] [address] [place], [address] Basophil percentageOrdered B y: Romeo Padron on 04-19-2025 Basophils/100 WBC (Bld) 0.3 % 0-1 [facility] Bedside Glucoseon 04-19-2025 FINGERSTICK GLU 242 mg/dL High 74-106 [facility] Comment on above: Result Comment: TORRES GEMENT OF PATIENT CARE PER NURSING PROTOCOL Performed By: #### L 501.080 ####[facility] [address] [place], [address] FINGERSTICK GLU 260 mg/dL High 74-106 [facility] Comment on above: Result Comment: TORRES GEMENT OF PATIENT CARE PER NURSING PROTOCOL Performed By: #### L 501.080 ####[facility] [address] [place], [address] FINGERSTICK GLU 153 mg/dL High 74-106 [facility] Comment on above: Result Comment: TORRES GEMENT OF PATIENT CARE PER NURSING PROTOCOL Performed By: #### L 501.080 ####[facility] [address] [place], [address] Bilirubin Test strip Ql (U)O rdered By: Romeo Padron on 04-19-2025 Bilirubin Ql (U) Negative Negative [facility] CBC W/Diff, Automatedon 03-23 Absolute Lymph 0.90 X10 3/uL Normal 0.83-4.51 [facility] Comment on above: Performed By: #### L 501.9520, L501.5200, L100.0100, L500.2500 ####[facility] [address] [place], [address] Absolute Neut 6.8 X10 3/uL Normal 2.0-7.7 [facility] Comment on above: Performed By: #### L 501.9520, L501.5200, L100.0100, L500.2500 ####[facility] [address] [place], [address] Basophils/100 WBC (Bld) 0.3 % Normal 0-1 [facility] Comment on above: Performed By: #### L 501.9520, L501.5200, L100.0100, L500.2500 ####[facility] [address] [place], [address] Eosinophils/100 WBC (Bld) 2.5 % Normal 0-5 [facility] Comment on above: Performed By: #### L 501.9520, L501.5200, L100.0100, L500.2500 ####[facility] [address] [place], [address] Erythrocyte distribution width (RBC) [Ratio] 13.3 % Normal 11.6-14.6 [facility] Comment on above: Performed By: #### L 501.9520, L501.5200, L100.0100, L500.2500 ####[facility] [address] [place], [address] Hematocrit (Bld) [Volume fraction] 30.8 % Low 37-47 [facility] Comment on above: Performed By: #### L 501.9520, L501.5200, L100.0100, L500.2500 ####[facility] [address] [place], [address] Hemoglobin (Bld) [Mass/Vol] 10.4 g/dL Low 12.0-15.0 [facility] Comment on above: Performed By: #### L 501.9520, L501.5200, L100.0100, L500.2500 ####[facility] [address] [place], [address] IG% 0.300 Normal 0.0-0.9 [facility] Comment on above: Result Comment: IG% - Immature Granulocytes (promyelocytes, myelocytes andmetamyelocytes) > 1% indicates that a LEFT SHIFT is Present. Performed By: #### L 501.9520, L501.5200, L100.0100, L500.2500 ####[facility] [address] [place], [address] Lymphocytes/100 WBC (Bld) 10.4 % Low 19-41 [facility] Comment on above: Performed By: #### L 501.9520, L501.5200, L100.0100, L500.2500 ####[facility] [address] [place], [address] MCH (RBC) [Entitic mass] 31.3 pg Normal 27.0-32.0 [facility] Comment on above: Performed By: #### L 501.9520, L501.5200, L100.0100, L500.2500 ####[facility] [address] [place], [address] MCHC (RBC) [Mass/Vol] 33.8 g/dL Normal 32-36 [facility] Comment on above: Performed By: #### L 501.9520, L501.5200, L100.0100, L500.2500 ####[facility] [address] [place], [address] MCV (RBC) [Entitic vol] 92.8 fL Normal 81-99 [facility] Comment on above: Performed By: #### L 501.9520, L501.5200, L100.0100, L500.2500 ####[facility] [address] [place], [address] Monocytes/100 WBC (Bld) 8.2 % Normal 0-10 [facility] Comment on above: Performed By: #### L 501.9520, L501.5200, L100.0100, L500.2500 ####[facility] [address] [place], [address] Neutrophils/100 WBC (Bld) 78.3 % High 47-70 [facility] Comment on above: Performed By: #### L 501.9520, L501.5200, L100.0100, L500.2500 ####[facility] [address] [place], [address] Nucleated RBC (Bld) [#/Vol] 0 10*3/uL Normal 0-5 [facility] Comment on above: Performed By: #### L 501.9520, L501.5200, L100.0100, L500.2500 ####[facility] [address] [place], [address] Platelet mean volume (Bld) [Entitic vol] 10.8 fL Normal 6.2-12.0 [facility] Comment on above: Performed By: #### L 501.9520, L501.5200, L100.0100, L500.2500 ####[facility] [address] [place], [address] Platelets (Bld) [#/Vol] 189 10*3/uL Normal 150-450 [facility] Comment on above: Performed By: #### L 501.9520, L501.5200, L100.0100, L500.2500 ####[facility] [address] [place], [address] RBC (Bld) [#/Vol] 3.32 10*6/uL Low 4.2-5.4 [facility] Comment on above: Performed By: #### L 501.9520, L501.5200, L100.0100, L500.2500 ####[facility] [address] [place], [address] RDW SD 44.9 fl High 35.1-43.9 [facility] Comment on above: Performed By: #### L 501.9520, L501.5200, L100.0100, L500.2500 ####[facility] [address] [place], [address] WBC (Bld) [#/Vol] 8.7 10*3/uL Normal 4.4-11.0 [facility] Comment on above: Performed By: #### L 501.9520, L501.5200, L100.0100, L500.2500 ####[facility] [address] [place], [address] Carbon dioxide, total [Moles /volume] in Central venous bloodOrdered By: Romeo Padron on 04-19-2025 CO2 [Moles/Vol] 25.9 mmol/L 21.0-32.0 [facility] Chloride assayOrdered By: Lizeth Padron on 04-19-2025 Chloride [Moles/Vol] 99 mmol/L 98-108 [facility] Emergency Department Summary on 04-19-2025 Emergency Department Summary Normal [facility] Eosinophil percentageOrdered By: Romeo Padron on 04-19-2025 Eosinophils/100 WBC (Bld) 2.5 % 0-5 [facility] Erythrocyte distribution wid th ratioOrdered By: Romeo Padron on 04-19-2025 Erythrocyte distribution width (RBC) [Ratio] 13.3 % 11.6-14.6 [facility] Erythrocyte distribution wid th standard deviationOrdered By: Romeo Padron on 04-19-2025 Erythrocyte distribution width (RBC) [Ratio] 44.9 fl High 35.1-43.9 [facility] Glomerular filtration rate ( GFR) estimation/1.73 sq m using serum, plasma, or whole bOrdered By: Romeo Padron on 04-19-2025 GFR/1.73 sq M.predicted among non-blacks MDRD (S/P/Bld) [Vol rate/Area] 58 mL/min/{1.73_m2} Low >60 [facility] Comment on above: mL/min/1.73m2 CKD-EP I Creatinine Equation (2020) Gl[facility] measurement at [facility] deOrdered By: Romeo Padron on 04-19-2025 Glucose [Mass/Vol] 153 mg/dL High 74-106 [facility] Comment on above: MANAGEMENT OF PATIEN T CARE PER NURSING PROTOCOL H AND P Exam - [facility] 04-19-2025 H&P Exam - Hospitalist Normal [facility] Hematocrit Auto (Bld) [Volum e fraction]Ordered By: Romeo Padron on 04-19-2025 Hematocrit (Bld) [Volume fraction] 30.8 % Low 37-47 [facility] Hemoglobin measurementOrdere d By: Romeo Padron on 04-19-2025 Hemoglobin (Bld) [Mass/Vol] 10.4 g/dL Low 12.0-15.0 [facility] Immature granulocytes/100 WB C Auto (Bld)Ordered By: Romeo Padron on 04-19-2025 Immature granulocytes/100 WBC (Bld) 0.300 % 0.0-0.9 [facility] Comment on above: IG% - Immature Granu locytes (promyelocytes, myelocytes and metamyelocytes) > 1% indicates that a LEFT SHIFT is Present. Ketones Test strip Ql (U)Ord ered By: Romeo Padron on 04-19-2025 Ketones Ql (U) Negative Negative [facility] MCV (mean corpuscular volume ) determinationOrdered By: Romeo Padron on 04-19-2025 MCV (RBC) [Entitic vol] 92.8 fL 81-99 [facility] Magnesiumon 04-19-2025 Magnesium [Mass/Vol] 1.6 mg/dL Normal 1.5-2.2 [facility] Comment on above: Performed By: #### L 501.9520, L501.5200, L100.0100, L500.2500 ####[facility] [address] [place], [address] Magnesium measurement (mass/ volume)Ordered By: Romeo Padron on 04-19-2025 Magnesium (Unsp spec) [Mass/Vol] 1.6 mg/dL 1.5-2.2 [facility] Mean corpuscular hemoglobin (MCH) determinationOrdered By: Romeo Padron on 04-19-2025 MCH (RBC) [Entitic mass] 31.3 pg 27.0-32.0 [facility] Mean corpuscular hemoglobin concentration (MCHC) determinationOrdered By: Romeo Padron on 04-19-2025 MCHC (RBC) [Mass/Vol] 33.8 g/dL 32-36 [facility] Mean platelet volume determi nationOrdered By: Romeo Padron on 04-19-2025 Platelet mean volume (Bld) [Entitic vol] 10.8 fL 6.2-12.0 [facility] Microscopic analysis of urin e for red blood cells (RBC)Ordered By: Romeo Padron on 04-19-2025 Microscopic analysis of urine for red blood cells (RBC) 0 SEEN /hpf 0-5 [facility] Monocyte percentageOrdered B y: Romeo Padron on 04-19-2025 Monocytes/100 WBC (Bld) 8.2 % 0-10 [facility] Mucus LM Ql (Urine sed)Order ed By: Romeo Padron on 04-19-2025 Mucus Ql (Urine sed) 0 SEEN /hpf [facility] Neutrophil percentageOrdered By: Romeo Padron on 04-19-2025 Neutrophils/100 WBC (Bld) 78.3 % High 47-70 [facility] Nitrite Test strip Ql (U)Ord ered By: Romeo Padron on 04-19-2025 Nitrite Ql (U) Negative Negative [facility] Nucleated red blood cell per centageOrdered By: Romeo Padron on 04-19-2025 Nucleated RBC/100 WBC (Bld) [Ratio] 0 % 0-5 [facility] Platelet countOrdered By: Lizeth Padron on 04-19-2025 Platelets (Bld) [#/Vol] 189 10*3/uL 150-450 [facility] Potassium measurement (mass/ volume)Ordered By: Romeo Padron on 04-19-2025 Potassium (Unsp spec) [Mass/Vol] 4.4 mmol/L 3.3-5.1 [facility] Comment on above: Hemolysis present, R esults could be affected. Protein Test strip Ql (U)Ord ered By: Romeo Padron on 04-19-2025 Protein Ql (U) 15 mg/dl High Negative [facility] RBC Auto (Bld) [#/Vol]Ordere d By: Romeo Padron on 04-19-2025 RBC (Bld) [#/Vol] 3.32 10*6/uL Low 4.2-5.4 [facility] Serum creatinine measurement (mass/volume)Ordered By: Romeo Padron on 04-19-2025 Creatinine [Mass/Vol] 1.02 mg/dL 0.70-1.20 [facility] Serum glucose measurement (m ass/volume)Ordered By: Romeo Padron on 04-19-2025 Glucose [Mass/Vol] 229 mg/dL High 70-99 [facility] Serum or plasma calcium loco urement (mass/volume)Ordered By: Romeo Padron on 04-19-2025 Calcium [Mass/Vol] 9.0 mg/dL 7.6-11.0 [facility] Serum or plasma urea nitroge n measurement (mass/volume)Ordered By: Romeo Padron on 04-19-2025 Urea nitrogen [Mass/Vol] 20 mg/dL High 4-19 [facility] Sodium levelOrdered By: Aleksander Padron on 04-19-2025 Sodium [Moles/Vol] 135 mmol/L 133-145 [facility] Squamous epithelial cells de tection in urine sediment by light microscopyOrdered By: Romeo Padron on 04-19-2025 Epithelial cells.squamous LM Ql (Urine sed) 0 SEEN /hpf 5- [facility] TSH DL <= 0.005 mIU/L QnOrde red By: Romeo Padron on 04-19-2025 TSH Qn 4.050 uIU/mL 0.300-4.200 [facility] Thyroid Stim Hormone (TSH)on 04-19-2025 TSH 4.050 uIU/mL Normal 0.300-4.200 [facility] Comment on above: Performed By: #### L 501.9520, L501.5200, L100.0100, L500.2500 ####[facility] [address] [place], [place], [id number] Urinalysis, Completeon 04-19 BACTERIA 0 SEEN Normal None Seen [facility] Comment on above: Order Comment: HUNTER CTOR TO SPECIFY Performed By: #### L 400.0001 ####[facility] [address] [place], [address] EPI,SQUAMOUS 0 SEEN Normal - [facility] Comment on above: Order Comment: HUNTER CTOR TO SPECIFY Performed By: #### L 400.0001 ####[facility] [address] [place], [place], [id number] Mucus Ql (Urine sed) 0 SEEN Normal [facility] Comment on above: Order Comment: HUNTER CTOR TO SPECIFY Performed By: #### L 400.0001 ####[facility] [address] [place], [address] RBC 0 SEEN Normal 0-5 [facility] Comment on above: Order Comment: HUNTER CTOR TO SPECIFY Performed By: #### L 400.0001 ####[facility] [address] [place], [address] WBC 0 SEEN Normal 0-5 [facility] Comment on above: Order Comment: HUNTER CTOR TO SPECIFY Performed By: #### L 400.0001 ####[facility] [address] [place], [place], [phone] Urine clarityOrdered By: Ryan Padron on 04-19-2025 Clarity (U) Clear Clear [facility] Urine color determinationOrd ered By: Romeo Padron on 04-19-2025 Color (U) Yellow Yellow [facility] Urine glucose detectionOrder ed By: Romeo Padron on 04-19-2025 Glucose Ql (U) 100 mg/dl High Normal [facility] Urine leukocyte esterase det ection by dipstickOrdered By: Romeo Padron on 04-19-2025 Leukocyte esterase Test strip Ql (U) Negative Negative [facility] Urine pHOrdered By: Romeo salas on 04-19-2025 pH (U) 6.5 [pH] 5.0 - 8.0 [facility] Urine sediment bacteria coun t by microscopy (number/high power field)Ordered By: Romeo Padron on 04-19-2025 Bacteria LM.HPF (Urine sed) [#/Area] 0 /[HPF] None Seen [facility] Urine specific gravity measu rementOrdered By: Romeo Padron on 04-19-2025 Specific gravity (U) [Rel density] 1.010 1.002-1.030 [facility] Urine urobilinogen measureme ntOrdered By: Romeo Padron on 04-19-2025 Urobilinogen Ql (U) Normal mg/dl Normal [facility] White blood cell (WBC) count Ordered By: Romeo Padron on 04-19-2025 WBC (Bld) [#/Vol] 8.7 10*3/uL 4.4-11.0 [facility] White blood cell countOrdere d By: Romeo Padron on 04-19-2025 White blood cell count 0 SEEN /hpf 0-5 [facility] MR Brain WO contraston 04-04 IMPRESSION: 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 Remainder of the brain shows relatively mild background chronic microvascular disease. No acute abnormalities. Public Information Officer: [facility] Transcribe Date/Time: Apr 04 2025 12:45P Dictated by : BRITANY GASPAR MD This examination was interpreted and the report reviewed and electronically signed by: BRITANY GASPAR MD on Apr 04 2025 1:03PM [facility] * * *Final Report* * * DATE OF EXAM: Apr 04 2025 12:39PM [facility] - MRI BRAIN WO IVCON / PROCEDURE REASON: multiple diagnoses * * * * Physician Interpretation * * * * EXAMINATION: MRI BRAIN WO IVCON CLINICAL HISTORY: Essential tremor Dyskinesia, tardive. This information is taken directly from the border machine operator system. TECHNIQUE: Routine noncontrast MRI protocol including [...] Prior lens replacements. Orbits are otherwise unremarkable. [facility] Provider, [facility] - 04/04/2025 * * *Final Report* * * DATE OF EXAM: Apr 04 2025 12:39PM [facility] 0294 - MRI BRAIN WO IVCON / PROCEDURE REASON: multiple diagnoses * * * * Physician Interpretation * * * * EXAMINATION: MRI BRAIN WO IVCON CLINICAL HISTORY: Essential tremor Dyskinesia, tardive. This information is taken directly from the border machine operator system. TECHNIQUE: Routine noncontrast MRI protocol including [...] background chronic microvascular disease. No acute abnormalities. Public Information Officer: [facility] Transcribe Date/Time: Apr 04 2025 12:45P Dictated by : BRITANY GASPAR MD This examination was interpreted and the report reviewed and electronically signed by: BRITANY GASPAR MD on Apr 04 2025 1:03PM EST [facility] Radiology Study observation (narrative) [facility] MR Brain WO contrastOrdered By: [facility] Provider on 04-04-2025 [facility] MRI BRAIN WO IVCONon 025 MRI BRAIN WO IVCON * * *Final Report* * * DATE OF EXAM: Apr 04 2025 12:39PM [facility] 0294 - MRI BRAIN WO IVCON / PROCEDURE REASON: multiple diagnoses * * * * Physician Interpretation * * * * EXAMINATION: MRI BRAIN WO IVCON CLINICAL HISTORY: Essential tremor Dyskinesia, tardive. This information is taken directly from the border machine operator system. TECHNIQUE: Routine noncontrast MRI protocol including [...] background chronic microvascular disease. No acute abnormalities. Public Information Officer: MARC Transcribe Date/Time: Apr 04 2025 12:45P Dictated by : BRITANY GASPAR MD This examination was interpreted and the report reviewed and electronically signed by: BRITANY GASPAR MD on Apr 04 2025 1:03PM EST [id number] Normal [facility] NURSING PROGon 04-04-2025 NURSING PROG HNO ID: [id number] Author: JANINE TOMPKINS RN Service: Nursing Author [...] REVIEWED: YES PROCEDURE: MRI - Conditional Pacemaker [employer] Paint Crew Supervisor Device - Settings: DOO 90 bpm Physiologic monitoring per standard operating procedure. See vital sign flowsheet. PERIPHERAL IV ACCESS: Not applicable PATIENT TOLERATED PROCEDURE: Without incident. PATIENT DISCHARGED TO: Home/Self Care SIGNED BY: TANIA Barnett Patient arrived here today for an MRI. Patients [employer] [employer] Pacemaker was placed in MRI safe mode by maintenance technician 3rd shift AND device. Vitals remained stable throughout - see flowsheet. MRI was completed and then pacemaker was taken out of MRI safe mode and tolerated well. Patient was discharged home with family. [facility] XR CHEST 2V FRONTAL/LATon XR CHEST 2V [...] chest. No developing abnormality or acute process Public Information Officer: MARC Transcribe Date/Time: Apr 03 2025 3:49P Dictated by : MIRA HODGSON MD This examination was interpreted and the report reviewed and electronically signed by: MIRA HODGSON MD on Apr 03 2025 3:51PM EST [id number] [facility] 03-28-2025 CNPN Telephone (NRMDN) MANSI CARO ([id number]) 1955 F Date Time Provider Department 03/28/25 LEYLA MURPHY During your visit today, we recorded the following information about you: Soumya Moss RN 03/28/2025 9:48 AM Signed Voicemail received March 27, 2025 1457 Spouse [...] allergic reaction and is willing to rechallenge [facility] RN Date Reviewed: 02/27/2025 Reviewed by: Leyla Murphy MD - Fully Assessed Reason for Visit: Patient Question [9447] Prescriptions as of 03/28/2025 - deutetrabenazine XR [...] Status:Closed by SOUMYA MOSS on 03/28/25 Normal [facility] PT D/C Summary (1)on 025 PT D/C Summary (1) Normal [facility] 12 Lead EKGon 03-10-2025 12 Lead EKG Normal [facility] 36on 03-10-2025 36 S-Patient and patien t spouse calling in re: patient fell yesterday and has Left hip pain . B-Happened yesterday A-states having hard time walking due to pain, No COVID Symptoms. Has a brouis, no other sites with pain R-Scheduled Same Day After hours appt today @ 10:00a 03/10/25 @ [facility], address provided Reason for Disposition MILD weakness (i.e., does not interfere with ability to work, go to school, normal activities) (Exception: Mild weakness is a chronic symptom.) Answer Assessment - Initial Assessment Questions . Protocols used: Falls and [id number] Normal [facility] Absolute lymphocyte countOrd ered By: Mellisa Cabrera on 03-10-2025 Lymphocytes Auto (Unsp spec) [#/Vol] 1.61 10*3/uL 0.83-4.51 [facility] Absolute neutrophil countOrd ered By: Mellisa Cabrera on 03-10-2025 Neutrophils (Bld) [#/Vol] 3.9 10*3/uL 2.0-7.7 [facility] Anion gap in Serum or Plasma Ordered By: Mellisa Cabrera on 03-10-2025 Anion gap [Moles/Vol] 11 mmol/L 5-15 [facility] Automated lymphocyte count a s percentage of total leukocytesOrdered By: Mellisa Cabrera on 03-10-2025 Lymphocytes/100 WBC Auto (Unsp spec) 25.4 % - [facility] BUN/creatinine ratioOrdered By: Mellisa Cabrera on 03-10-2025 Urea nitrogen/Creatinine [Mass ratio] 20.1 mg/mg High 10-20 [facility] Basic Metabolic Profile (BMP )on 03-10-2025 BUN/CRE 20.1 RATIO High 10-20 [facility] Comment on above: Performed By: #### L 100.0100, L500.2500 ####[facility] [address] [place], [address] Calcium [Mass/Vol] 9.1 mg/dL Normal 7.6-11.0 [facility] Comment on above: Performed By: #### L 100.0100, L500.2500 ####[facility] [address] [place], [address] Chloride [Moles/Vol] 106 mmol/L Normal 98-108 [facility] Comment on above: Performed By: #### L 100.0100, L500.2500 ####[facility] [address] [place], [address] CO2 [Moles/Vol] 22.8 mmol/L Normal 21.0-32.0 [facility] Comment on above: Performed By: #### L 100.0100, L500.2500 ####[facility] [address] [place], [address] Creatinine [Mass/Vol] 0.97 mg/dL Normal 0.70-1.20 [facility] Comment on above: Performed By: #### L 100.0100, L500.2500 ####[facility] [address] [place], [address] ECRCL 51.73 ml/min Normal 50-250 [facility] Comment on above: Performed By: #### L 100.0100, L500.2500 ####[facility] [address] [place], [address] GAP 11 Normal 5-15 [facility] Comment on above: Performed By: #### L 100.0100, L500.2500 ####[facility] [address] [place], [address] GFR/1.73 sq M.predicted among non-blacks MDRD (S/P/Bld) [Vol rate/Area] 62 mL/min/{1.73_m2} Normal >60 [facility] Comment on above: Result Comment: mL/m in/1.73m2 CKD-EPI Creatinine Equation (2020) Performed By: #### L 100.0100, L500.2500 ####[facility] [address] [place], [address] Glucose [Mass/Vol] 139 mg/dL High 70-99 [facility] Comment on above: Performed By: #### L 100.0100, L500.2500 ####[facility] [address] [place], [address] Potassium [Moles/Vol] 4.3 mmol/L Normal 3.3-5.1 [facility] Comment on above: Performed By: #### L 100.0100, L500.2500 ####[facility] [address] [place], [address] Sodium [Moles/Vol] 140 mmol/L Normal 133-145 [facility] Comment on above: Performed By: #### L 100.0100, L500.2500 ####[facility] [address] [place], [address] Urea nitrogen [Mass/Vol] 20 mg/dL High - [facility] Comment on above: Performed By: #### L 100.0100, L500.2500 ####[facility] [address] [place], [address] Basophil percentageOrdered B y: Mellisa Cabrera on 03-10-2025 Basophils/100 WBC (Bld) 0.3 % 0-1 [facility] Bilirubin Test strip Ql (U)O rdered By: Mellisa Cabrera on 03-10-2025 Bilirubin Ql (U) Negative Negative [facility] CBC W/Diff, Automatedon 04- Absolute Lymph 1.61 X10 3/uL Normal 0.83-4.51 [facility] Comment on above: Performed By: #### L 100.0100, L500.2500 ####[facility] [address] [place], [address] Absolute Neut 3.9 X10 3/uL Normal 2.0-7.7 [facility] Comment on above: Performed By: #### L 100.0100, L500.2500 ####[facility] [address] [place], [address] Basophils/100 WBC (Bld) 0.3 % Normal 0-1 [facility] Comment on above: Performed By: #### L 100.0100, L500.2500 ####[facility] [address] [place], [address] Eosinophils/100 WBC (Bld) 3.8 % Normal 0-5 [facility] Comment on above: Performed By: #### L 100.0100, L500.2500 ####[facility] [address] [place], [address] Erythrocyte distribution width (RBC) [Ratio] 12.8 % Normal 11.6-14.6 [facility] Comment on above: Performed By: #### L 100.0100, L500.2500 ####[facility] [address] [place], [address] Hematocrit (Bld) [Volume fraction] 32.2 % Low 37-47 [facility] Comment on above: Performed By: #### L 100.0100, L500.2500 ####[facility] [address] [place], [address] Hemoglobin (Bld) [Mass/Vol] 11.0 g/dL Low 12.0-15.0 [facility] Comment on above: Performed By: #### L 100.0100, L500.2500 ####[facility] [address] [place], [address] IG% 0.300 Normal 0.0-0.9 [facility] Comment on above: Result Comment: IG% - Immature Granulocytes (promyelocytes, myelocytes andmetamyelocytes) > 1% indicates that a LEFT SHIFT is Present. Performed By: #### L 100.0100, L500.2500 ####[facility] [address] [place], [address] Lymphocytes/100 WBC (Bld) 25.4 % Normal 19-41 [facility] Comment on above: Performed By: #### L 100.0100, L500.2500 ####[facility] [address] [place], [address] MCH (RBC) [Entitic mass] 30.9 pg Normal 27.0-32.0 [facility] Comment on above: Performed By: #### L 100.0100, L500.2500 ####[facility] [address] [place], [address] MCHC (RBC) [Mass/Vol] 34.2 g/dL Normal 32-36 [facility] Comment on above: Performed By: #### L 100.0100, L500.2500 ####[facility] [address] [place], [address] MCV (RBC) [Entitic vol] 90.4 fL Normal 81-99 [facility] Comment on above: Performed By: #### L 100.0100, L500.2500 ####[facility] [address] [place], [address] Monocytes/100 WBC (Bld) 8.3 % Normal 0-10 [facility] Comment on above: Performed By: #### L 100.0100, L500.2500 ####[facility] [address] [place], [address] Neutrophils/100 WBC (Bld) 61.9 % Normal 47-70 [facility] Comment on above: Performed By: #### L 100.0100, L500.2500 ####[facility] [address] [place], [address] Nucleated RBC (Bld) [#/Vol] 0 10*3/uL Normal 0-5 [facility] Comment on above: Performed By: #### L 100.0100, L500.2500 ####[facility] [address] [place], [address] Platelet mean volume (Bld) [Entitic vol] 11.0 fL Normal 6.2-12.0 [facility] Comment on above: Performed By: #### L 100.0100, L500.2500 ####[facility] [address] [place], [address] Platelets (Bld) [#/Vol] 148 10*3/uL Low 150-450 [facility] Comment on above: Performed By: #### L 100.0100, L500.2500 ####[facility] [address] [place], [address] RBC (Bld) [#/Vol] 3.56 10*6/uL Low 4.2-5.4 [facility] Comment on above: Performed By: #### L 100.0100, L500.2500 ####[facility] [address] [place], [address] RDW SD 42.3 fl Normal 35.1-43.9 [facility] Comment on above: Performed By: #### L 100.0100, L500.2500 ####[facility] [address] [place], [address] WBC (Bld) [#/Vol] 6.4 10*3/uL Normal 4.4-11.0 [facility] Comment on above: Performed By: #### L 100.0100, L500.2500 ####[facility] [address] [place], [address] Carbon dioxide, total [Moles /volume] in Central venous bloodOrdered By: Mellisa Cabrera on 03-10-2025 CO2 [Moles/Vol] 22.8 mmol/L 21.0-32.0 [facility] Chloride assayOrdered By: Amparo Cabrera on 03-10-2025 Chloride [Moles/Vol] 106 mmol/L 98-108 [facility] Emergency Department Summary on 03-10-2025 Emergency Department Summary Normal [facility] Eosinophil percentageOrdered By: Mellisa Cabrera on 03-10-2025 Eosinophils/100 WBC (Bld) 3.8 % 0-5 [facility] Epithelial cells.squamous LM Ql (Urine sed)Ordered By: Mellisa Cabrera on 03-10-2025 Epithelial cells.squamous LM.HPF (Urine sed) [#/Area] 0 /[HPF] 5-10 [facility] Erythrocyte distribution wid th (RBC) [Ratio]Ordered By: Mellisa Cabrera on 03-10-2025 Erythrocyte distribution width (RBC) [Entitic vol] 42.3 fL 35.1-43.9 [facility] Erythrocyte distribution wid th ratioOrdered By: Mellisa Cabrera on 03-10-2025 Erythrocyte distribution width (RBC) [Ratio] 12.8 % 11.6-14.6 [facility] Erythrocyte distribution wid th standard deviationOrdered By: Mellisa Cabrera on 03-10-2025 Erythrocyte distribution width (RBC) [Ratio] 42.3 fl 35.1-43.9 [facility] Estimation of creatinine julio cesar aranceOrdered By: Mellisa Cabrera on 03-10-2025 Estimated Creatinine Clearance Calc 51.73 ml/min 50-250 [facility] GFR/1.73 sq M.predicted kwame g non-blacks MDRD (S/P/Bld) [Vol rate/Area]Ordered By: Mellisa Cabrera on 03-10-2025 Estimated GFR (MDRD) Non-Af Amer 62 >60 [facility] Comment on above: mL/min/1.73m2 CKD-EP I Creatinine Equation (2020) Glomerular filtration rate ( GFR) estimation/1.73 sq m using serum, plasma, or whole bOrdered By: Mellisa Cabrera on 03-10-2025 GFR/1.73 sq M.predicted among non-blacks MDRD (S/P/Bld) [Vol rate/Area] 62 mL/min/{1.73_m2} >60 [facility] Comment on above: mL/min/1.73m2 CKD-EP I Creatinine Equation (2020) Glucose Ql (U)Ordered By: Amparo Cabrera on 03-10-2025 Urine Glucose (UA) Normal mg/dl Normal [facility] HIP, UNI W/ Pelvis 2-3 Views on 03-10-2025 HIP, UNI W/ Pelvis 2-3 Views Normal [facility] Hematocrit Auto (Bld) [Volum e fraction]Ordered By: Mellisa Cabrera on 03-10-2025 Hematocrit (Bld) [Volume fraction] 32.2 % Low 37-47 [facility] Hemoglobin measurementOrdere d By: Mellisa Cabrera on 03-10-2025 Hemoglobin (Bld) [Mass/Vol] 11.0 g/dL Low 12.0-15.0 [facility] Immature granulocytes/100 WB C Auto (Bld)Ordered By: Mellisa Cabrera on 03-10-2025 Immature granulocytes/100 WBC (Bld) 0.300 % 0.0-0.9 [facility] Comment on above: IG% - Immature Granu locytes (promyelocytes, myelocytes and metamyelocytes) > 1% indicates that a LEFT SHIFT is Present. Ketones Test strip Ql (U)Ord ered By: Mellisa Cabrera on 03-10-2025 Ketones Ql (U) Negative Negative [facility] Lymphocytes Auto (Unsp spec) [#/Vol]Ordered By: Mellisa Cabrera on 03-10-2025 Lymphocytes (Bld) [#/Vol] 1.61 10*3/uL 0.83-4.51 [facility] Lymphocytes/100 WBC Auto (Un sp spec)Ordered By: Mellisa Cabrera on 03-10-2025 Lymphocytes/100 WBC (Bld) 25.4 % 19-41 [facility] MCV (mean corpuscular volume ) determinationOrdered By: Mellisa Cabrera on 03-10-2025 MCV (RBC) [Entitic vol] 90.4 fL 81-99 [facility] Mean corpuscular hemoglobin (MCH) determinationOrdered By: Mellisa Cabrera on 03-10-2025 MCH (RBC) [Entitic mass] 30.9 pg 27.0-32.0 [facility] Mean corpuscular hemoglobin concentration (MCHC) determinationOrdered By: Mellisa Cabrera on 03-10-2025 MCHC (RBC) [Mass/Vol] 34.2 g/dL 32-36 [facility] Mean platelet volume determi nationOrdered By: Mellisa Cabrera on 03-10-2025 Platelet mean volume (Bld) [Entitic vol] 11.0 fL 6.2-12.0 [facility] Microscopic analysis of urin e for red blood cells (RBC)Ordered By: Mellisa Cabrera on 03-10-2025 Microscopic analysis of urine for red blood cells (RBC) 0 SEEN /hpf 0-5 [facility] Urine RBC 0 SEEN /hpf 0-5 [facility] Monocyte percentageOrdered B y: Mellisa Cabrera on 03-10-2025 Monocytes/100 WBC (Bld) 8.3 % 0-10 [facility] Mucus LM Ql (Urine sed)Order ed By: Mellisa Cabrera on 03-10-2025 Mucus Ql (Urine sed) 0 SEEN /hpf [facility] Neutrophil percentageOrdered By: Mellisa Cabrera on 03-10-2025 Neutrophils/100 WBC (Bld) 61.9 % 47-70 [facility] Nitrite Test strip Ql (U)Ord ered By: Mellisa Cabrera on 03-10-2025 Nitrite Ql (U) Negative Negative [facility] Nucleated red blood cell per centageOrdered By: Mellisa Cabrera on 03-10-2025 Nucleated RBC/100 WBC (Bld) [Ratio] 0 % 0-5 [facility] Platelet countOrdered By: Amparo Cabrera on 03-10-2025 Platelets (Bld) [#/Vol] 148 10*3/uL Low 150-450 [facility] Potassium (Unsp spec) [Mass/ Vol]Ordered By: Mellisa Cabrera on 03-10-2025 Potassium [Moles/Vol] 4.3 mmol/L 3.3-5.1 [facility] Potassium measurement (mass/ volume)Ordered By: Mellisa Cabrera on 03-10-2025 Potassium (Unsp spec) [Mass/Vol] 4.3 mmol/L 3.3-5.1 [facility] Protein Test strip Ql (U)Ord ered By: Mellisa Cabrera on 03-10-2025 Protein Ql (U) 15 mg/dl High Negative [facility] RBC Auto (Bld) [#/Vol]Ordere d By: Mellisa Cabrera on 03-10-2025 RBC (Bld) [#/Vol] 3.56 10*6/uL Low 4.2-5.4 [facility] Serum creatinine measurement (mass/volume)Ordered By: Mellisa Deborah on 03-10-2025 Creatinine [Mass/Vol] 0.97 mg/dL 0.70-1.20 [facility] Serum glucose measurement (m ass/volume)Ordered By: Mellisahema Cabrera on 03-10-2025 Glucose [Mass/Vol] 139 mg/dL High 70-99 [facility] Serum or plasma calcium loco urement (mass/volume)Ordered By: Mellisahema Cabrera on 03-10-2025 Calcium [Mass/Vol] 9.1 mg/dL 7.6-11.0 [facility] Serum or plasma urea nitroge n measurement (mass/volume)Ordered By: Mellisa Cabrera on 03-10-2025 Urea nitrogen [Mass/Vol] 20 mg/dL High 4-19 [facility] Sodium levelOrdered By: Mellisa Cabrera on 03-10-2025 Sodium [Moles/Vol] 140 mmol/L 133-145 [facility] Squamous epithelial cells de tection in urine sediment by light microscopyOrdered By: Mellisahema Cabrera on 03-10-2025 Epithelial cells.squamous LM Ql (Urine sed) 0 SEEN /hpf 5-10 [facility] Urinalysis, Completeon 03-10 WBC 0-5 SEEN Normal 0-5 [facility] Comment on above: Order Comment: HUNTER CTOR TO SPECIFY Performed By: #### L 400.0001 ####[facility] [address] [place], [place], [id number] BACTERIA 0 SEEN Normal None Seen [facility] Comment on above: Order Comment: HUNTER CTOR TO SPECIFY Performed By: #### L 400.0001 ####[facility] [address] [place], [place], [id number] EPI,SQUAMOUS 0 SEEN Normal - [facility] Comment on above: Order Comment: HUNTER CTOR TO SPECIFY Performed By: #### L 400.0001 ####[facility] [address] [place], [address] Mucus Ql (Urine sed) 0 SEEN Normal [facility] Comment on above: Order Comment: HUNTER CTOR TO SPECIFY Performed By: #### L 400.0001 ####[facility] [address] [place], [address] RBC 0 SEEN Normal 0-5 [facility] Comment on above: Order Comment: HUNTER CTOR TO SPECIFY Performed By: #### L 400.0001 ####[facility] [address] [place], [address] Urine blood detectionOrdered By: Mellisa Cabrera on 03-10-2025 Urine Occult Blood Negative Negative [facility] Urine clarityOrdered By: Pastora Cabrera on 03-10-2025 Clarity (U) Clear Clear [facility] Urine color determinationOrd ered By: Mellisa Cabrera on 03-10-2025 Color (U) Yellow Yellow [facility] Urine glucose detectionOrder ed By: Mellisa Cabrera on 03-10-2025 Glucose Ql (U) Normal mg/dl Normal [facility] Urine leukocyte esterase det ection by dipstickOrdered By: Mellisa Cabrera on 03-10-2025 Leukocyte esterase Test strip Ql (U) 500 /ul High Negative [facility] Urine pHOrdered By: Mellisa peng on 03-10-2025 pH (U) 6.0 [pH] 5.0 - 8.0 [facility] Urine sediment bacteria coun t by microscopy (number/high power field)Ordered By: Mellisa Cabrera on 03-10-2025 Bacteria LM.HPF (Urine sed) [#/Area] 0 /[HPF] None Seen [facility] Urine specific gravity measu rementOrdered By: Mellisa Cabrera on 03-10-2025 Specific gravity (U) [Rel density] 1.015 1.002-1.030 [facility] Urine urobilinogen measureme ntOrdered By: Mellisa Cabrera on 03-10-2025 Urobilinogen Ql (U) Normal mg/dl Normal [facility] Urobilinogen Ql (U)Ordered B y: Mellisa Cabrera on 03-10-2025 Urine Urobilinogen Normal mg/dl Normal [facility] White blood cell (WBC) count Ordered By: Mellisa Cabrera on 03-10-2025 WBC (Bld) [#/Vol] 6.4 10*3/uL 4.4-11.0 [facility] White blood cell countOrdere d By: Mellisa Cabrera on 03-10-2025 Urine WBC 0-5 SEEN /hpf 0-5 [facility] White blood cell count 0-5 SEEN /hpf 0-5 [facility] CNPNon 03-09-2025 CNPN Telephone (NRMDN) MANSI CARO ([id number]) 1955 F Date Time Provider Department 03/09/25 LEYLA MURPHY During your visit today, we recorded the following information about you: Dipti Stewart 03/09/2025 12:16 PM Signed Spouse called inquiring status of RX for valbenazine (INGREZZA) 40 mg capsule. Informed Spouse that order was signed on 02/27/2025. Order has been faxed to [facility] Specialty [facility]acy: [phone]. Spouse provided phone number for pharmacy ([phone]) to follow up on this request. Leyla Zamudio MD 03/12/2025 7:42 AM Signed Notified by [facility] spec pharmacy Ingrezza is [...] allergic reaction and is willing to rechallenge [facility] RN Date Reviewed: 02/27/2025 Reviewed by: [...] Encounter Status:Closed by DIPTI STEWART on 03/09/25 [facility] MANSI CARO ([id number]) 1955 F Date Time Provider Department 03/01/25 KALEN CASEY JOANNE During your visit today, we recorded the [...] broken or abandoned leads. Thank you, Kalen Carmela Hall(R)(MR),[facility] MRI Safety Team Leyla Murphy MD 03/02/2025 [...] allergic reaction and is willing to rechallenge [facility] RN Date Reviewed: 02/27/2025 Reviewed by: Leyla Murphy MD - Fully Assessed Primary Visit Diagnosis:Presence of cardiac pacemaker [Z95.0] Order(s):XR CHEST 2V FRONTAL/LAT [3910673] Order #: [id number] FUTURE Prescriptions as of 03/02/2025 - Acetaminophen [...] 03/01/25 [facility] CNPN Telephone ([facility]) MANSI CARO ([id number]) 1955 F Date Time Provider Department 03/01/25 [...] allergic reaction and is willing to rechallenge [facility] RN Date Reviewed: 02/27/2025 Reviewed by: [...] 02-27-2025 CNOV Office Visit (NRMDN) MANSI CARO ([id number]) 1955 F Date Time Provider Department 02/27/25 [...] daily for mouth movements; prescription sent to [facility]. Once this is controlled [...] or you can send a message through [employer]. You can also now schedule and select appointments through Wheeldo. MD Jeffrey Marquez Kristin, MD 02/28/2025 9:12 AM Signed [facility] - FOLLOW UP EVALUATION The patient consented to the use of [employer] software for draft documentation of the visit consistent with [facility]?s Notice of Privacy Practices. Jesus Manuel Freitas DO, DO [address] [address] [facility] [id number] Dear Jesus Manuel Freitas DO, DO: I [...] that cannabis use during a visit to [place] temporarily alleviated her symptoms. She reports difficulty [...] activities: Yes (more content not included)... Normal [facility] Valerie 02-27-2025 [facility] Telephone ([facility]) MANSI CARO ([id number]) 1955 F Date Time Provider Department 02/27/25 LEYLA MURPHY During your visit today, we recorded the following information about you: Dipti Stewart 02/27/2025 5:05 PM Addendum Patient's spouse reports that Patient has a ROTARY DRILL OPERATOR-D implant (Cardiac Resynchronization Therapy with Defibrillator). Per scheduling protocol, staff message forwarded to Imaging Implants pool to contact Patient for appointment coordination/schedulin g. Patient/Spouse will be contacted within 4 business days. Dipti Pat Allergies As of Date: 02/27/2025 Noted Allergy [...] Status:Closed by DIPTI STEWART on 02/27/25 Normal [facility] Gastroenterology Visit Repor ton 02-14-2025 Gastroenterology Visit Report Normal [facility] Safety Manager Office Visit Reporton 02-13-2025 [facility] Prevention [facility] Safety Manager Office Visit Report Normal [facility] 36on 01-28-2025 36 S: Patient's spoke with [facility] nurse regarding medication concern B: Onset [...] to answer question Protocols used: Medication [facility] Erythropoietinon 01-24-2025 ERYTHROPOIETIN 10.1 mIU/mL Normal 2.6-18.5 [facility] Comment on above: Result Comment: [employer] DxI 800 Immunoassay SystemValues obtained with different assay methods or kits cannotbe used interchangeably. Results cannot be interpreted asabsolute evidence of the presence or absence of malignantdisease.Performed at: [facility] [id number] Director: Bulmaro Nesbitt PhD, Phone: [phone] Performed By: #### L 500.2500, L100.9950, L3100.1350, L503.6550, L503.6030, L100.0100 ####[facility] [address] [place], [address] Oncology Visit Reporton Oncology Visit Report Normal [facility] Absolute lymphocyte countOrd ered By: Luigi Tinoco on 01-22-2025 Lymphocytes Auto (Unsp spec) [#/Vol] 2.11 10*3/uL 0.83-4.51 [facility] Absolute neutrophil countOrd ered By: Luigi Tinoco on 01-22-2025 Neutrophils (Bld) [#/Vol] 4.9 10*3/uL 2.0-7.7 [facility] Automated lymphocyte count a s percentage of total leukocytesOrdered By: Luigi Tinoco on 01-22-2025 Lymphocytes/100 WBC Auto (Unsp spec) 27.6 % 19-41 [facility] BUN/creatinine ratioOrdered By: Luigi Tinoco on 01-22-2025 Urea nitrogen/Creatinine [Mass ratio] 16.9 mg/mg 10-20 [facility] Basic Metabolic Profile (BMP )on 01-22-2025 Anion gap [Moles/Vol] 9 mmol/L Normal 5-15 [facility] Comment on above: Performed By: #### L 500.2500, L100.9950, L3100.1350, L503.6550, L503.6030, L100.0100 ####[facility] [address] [place], [address] BUN/CRE 16.9 RATIO Normal 10-20 [facility] Comment on above: Performed By: #### L 500.2500, L100.9950, L3100.1350, L503.6550, L503.6030, L100.0100 ####[facility] [address] [place], [address] Calcium [Mass/Vol] 9.1 mg/dL Normal 7.6-11.0 [facility] Comment on above: Performed By: #### L 500.2500, L100.9950, L3100.1350, L503.6550, L503.6030, L100.0100 ####[facility] [address] [place], [address] Chloride [Moles/Vol] 103 mmol/L Normal 96-108 [facility] Comment on above: Performed By: #### L 500.2500, L100.9950, L3100.1350, L503.6550, L503.6030, L100.0100 ####[facility] [address] [place], [address] CO2 [Moles/Vol] 27.6 mmol/L Normal 22.0-29.0 [facility] Comment on above: Performed By: #### L 500.2500, L100.9950, L3100.1350, L503.6550, L503.6030, L100.0100 ####[facility] [address] [place], [address] Creatinine [Mass/Vol] 1.17 mg/dL Normal 0.70-1.20 [facility] Comment on above: Performed By: #### L 500.2500, L100.9950, L3100.1350, L503.6550, L503.6030, L100.0100 ####[facility] [address] [place], [address] ECRCL 40.81 ml/min Low 50-250 [facility] Comment on above: Performed By: #### L 500.2500, L100.9950, L3100.1350, L503.6550, L503.6030, L100.0100 ####[facility] [address] [place], [address] GFR/1.73 sq M.predicted among non-blacks MDRD (S/P/Bld) [Vol rate/Area] 50 mL/min/{1.73_m2} Low >60 [facility] Comment on above: Result Comment: mL/m in/1.73m2 CKD-EPI Creatinine Equation (2020) Performed By: #### L 500.2500, L100.9950, L3100.1350, L503.6550, L503.6030, L100.0100 ####[facility] [address] [place], [address] Glucose [Mass/Vol] 207 mg/dL High 70-99 [facility] Comment on above: Performed By: #### L 500.2500, L100.9950, L3100.1350, L503.6550, L503.6030, L100.0100 ####[facility] [address] [place], [address] Potassium [Moles/Vol] 4.3 mmol/L Normal 3.3-5.1 [facility] Comment on above: Performed By: #### L 500.2500, L100.9950, L3100.1350, L503.6550, L503.6030, L100.0100 ####[facility] [address] [place], [address] Sodium [Moles/Vol] 140 mmol/L Normal 133-145 [facility] Comment on above: Performed By: #### L 500.2500, L100.9950, L3100.1350, L503.6550, L503.6030, L100.0100 ####[facility] [address] [place], [address] Urea nitrogen [Mass/Vol] 20 mg/dL High 4-19 [facility] Comment on above: Performed By: #### L 500.2500, L100.9950, L3100.1350, L503.6550, L503.6030, L100.0100 ####[facility] [address] [place], [address] Basophil percentageOrdered B y: Luigi Earnest on 01-22-2025 Basophils/100 WBC (Bld) 0.5 % 0-1 [facility] CBC W/Diff, Automatedon Absolute Lymph 2.11 X10 3/uL Normal 0.83-4.51 [facility] Comment on above: Performed By: #### L 500.2500, L100.9950, L3100.1350, L503.6550, L503.6030, L100.0100 ####[facility] [address] [place], [address] Absolute Neut 4.9 X10 3/uL Normal 2.0-7.7 [facility] Comment on above: Performed By: #### L 500.2500, L100.9950, L3100.1350, L503.6550, L503.6030, L100.0100 ####[facility] [address] [place], [address] Basophils/100 WBC (Bld) 0.5 % Normal 0-1 [facility] Comment on above: Performed By: #### L 500.2500, L100.9950, L3100.1350, L503.6550, L503.6030, L100.0100 ####[facility] [address] [place], [address] Eosinophils/100 WBC (Bld) 1.3 % Normal 0-5 [facility] Comment on above: Performed By: #### L 500.2500, L100.9950, L3100.1350, L503.6550, L503.6030, L100.0100 ####[facility] [address] [place], [address] Erythrocyte distribution width (RBC) [Ratio] 12.5 % Normal 11.6-14.6 [facility] Comment on above: Performed By: #### L 500.2500, L100.9950, L3100.1350, L503.6550, L503.6030, L100.0100 ####[facility] [address] [place], [address] Hematocrit (Bld) [Volume fraction] 36.8 % Low 37-47 [facility] Comment on above: Performed By: #### L 500.2500, L100.9950, L3100.1350, L503.6550, L503.6030, L100.0100 ####[facility] [address] [place], [address] Hemoglobin (Bld) [Mass/Vol] 11.8 g/dL Low 12.0-15.0 [facility] Comment on above: Performed By: #### L 500.2500, L100.9950, L3100.1350, L503.6550, L503.6030, L100.0100 ####[facility] [address] [place], [address] IG% 0.400 Normal 0.0-0.9 [facility] Comment on above: Result Comment: IG% - Immature Granulocytes (promyelocytes, myelocytes andmetamyelocytes) > 1% indicates that a LEFT SHIFT is Present. Performed By: #### L 500.2500, L100.9950, L3100.1350, L503.6550, L503.6030, L100.0100 ####[facility] [address] [place], [address] Lymphocytes/100 WBC (Bld) 27.6 % Normal 19-41 [facility] Comment on above: Performed By: #### L 500.2500, L100.9950, L3100.1350, L503.6550, L503.6030, L100.0100 ####[facility] [address] [place], [address] MCH (RBC) [Entitic mass] 30.3 pg Normal 27.0-32.0 [facility] Comment on above: Performed By: #### L 500.2500, L100.9950, L3100.1350, L503.6550, L503.6030, L100.0100 ####[facility] [address] [place], [address] MCHC (RBC) [Mass/Vol] 32.1 g/dL Normal 32-36 [facility] Comment on above: Performed By: #### L 500.2500, L100.9950, L3100.1350, L503.6550, L503.6030, L100.0100 ####[facility] [address] [place], [address] MCV (RBC) [Entitic vol] 94.4 fL Normal 81-99 [facility] Comment on above: Performed By: #### L 500.2500, L100.9950, L3100.1350, L503.6550, L503.6030, L100.0100 ####[facility] [address] [place], [address] Monocytes/100 WBC (Bld) 6.0 % Normal 0-10 [facility] Comment on above: Performed By: #### L 500.2500, L100.9950, L3100.1350, L503.6550, L503.6030, L100.0100 ####[facility] [address] [place], [address] Neutrophils/100 WBC (Bld) 64.2 % Normal 47-70 [facility] Comment on above: Performed By: #### L 500.2500, L100.9950, L3100.1350, L503.6550, L503.6030, L100.0100 ####[facility] [address] [place], [address] Nucleated RBC (Bld) [#/Vol] 0 10*3/uL Normal 0-5 [facility] Comment on above: Performed By: #### L 500.2500, L100.9950, L3100.1350, L503.6550, L503.6030, L100.0100 ####[facility] [address] [place], [address] Platelet mean volume (Bld) [Entitic vol] 10.8 fL Normal 6.2-12.0 [facility] Comment on above: Performed By: #### L 500.2500, L100.9950, L3100.1350, L503.6550, L503.6030, L100.0100 ####[facility] [address] [place], [address] Platelets (Bld) [#/Vol] 143 10*3/uL Low 150-450 [facility] Comment on above: Performed By: #### L 500.2500, L100.9950, L3100.1350, L503.6550, L503.6030, L100.0100 ####[facility] [address] [place], [address] RBC (Bld) [#/Vol] 3.90 10*6/uL Low 4.2-5.4 [facility] Comment on above: Performed By: #### L 500.2500, L100.9950, L3100.1350, L503.6550, L503.6030, L100.0100 ####[facility] [address] [place], [address] RDW SD 43.6 fl Normal 35.1-43.9 [facility] Comment on above: Performed By: #### L 500.2500, L100.9950, L3100.1350, L503.6550, L503.6030, L100.0100 ####[facility] [address] [place], [address] WBC (Bld) [#/Vol] 7.7 10*3/uL Normal 4.4-11.0 [facility] Comment on above: Performed By: #### L 500.2500, L100.9950, L3100.1350, L503.6550, L503.6030, L100.0100 ####[facility] [address] [place], [place], [address] Calculated total iron bindin g capacityOrdered By: Luigi Tinoco on 01-22-2025 Total Iron Binding Capacity 248 ug/dL Low 250-450 [facility] Carbon dioxide measurementOr dered By: Luigi Tinoco on 01-22-2025 CO2 [Moles/Vol] 27.6 mmol/L 22.0-29.0 [facility] Chloride measurementOrdered By: Luigi Tinoco on 01-22-2025 Chloride [Moles/Vol] 103 mmol/L 96-108 [facility] Eosinophil percentageOrdered By: Luigi Tinoco on 01-22-2025 Eosinophils/100 WBC (Bld) 1.3 % 0-5 [facility] Erythrocyte distribution wid th (RBC) [Ratio]Ordered By: Luigi Tinoco on 01-22-2025 Erythrocyte distribution width (RBC) [Entitic vol] 43.6 fL 35.1-43.9 [facility] Erythrocyte distribution wid th ratioOrdered By: Luigi Tinoco on 01-22-2025 Erythrocyte distribution width (RBC) [Ratio] 12.5 % 11.6-14.6 [facility] Erythrocyte distribution wid th standard deviationOrdered By: Luigi Tinoco on 01-22-2025 Erythrocyte distribution width (RBC) [Ratio] 43.6 fl 35.1-43.9 [facility] Erythropoietin (EPO) QnOrder ed By: Luigi Tinoco on 01-22-2025 Erythropoietin 10.1 mIU/mL 2.6-18.5 [facility] Comment on above: Zerply el DxI 800 Immunoassay SystemValues obtained with different assay methods or kits cannotbe used interchangeably. Results cannot be interpreted asabsolute evidence of the presence or absence of malignantdisease.Performed at: [employer] [id number] Director: Bulmaro Nesbitt PhD, Phone: [phone] Estimation of creatinine julio cesar aranceOrdered By: uLigi Tinoco on 01-22-2025 Estimated Creatinine Clearance Calc 40.81 ml/min Low 50-250 [facility] Ferritinon 01-22-2025 Ferritin [Mass/Vol] 95 ng/mL Normal 22-378 [facility] Comment on above: Performed By: #### L 500.2500, L100.9950, L3100.1350, L503.6550, L503.6030, L100.0100 ####[facility] [address] [place], [place], [address] GFR/1.73 sq M.predicted kwame g non-blacks MDRD (S/P/Bld) [Vol rate/Area]Ordered By: Luigi Tinoco on 01-22-2025 Estimated GFR (MDRD) Non-Af Amer 50 Low >60 [facility] Comment on above: mL/min/1.73m2 CKD-EP I Creatinine Equation (2020) Glomerular filtration rate ( GFR) estimation/1.73 sq m using serum, plasma, or whole bOrdered By: Luigi Tinoco on 01-22-2025 GFR/1.73 sq M.predicted among non-blacks MDRD (S/P/Bld) [Vol rate/Area] 50 mL/min/{1.73_m2} Low >60 [facility] Comment on above: mL/min/1.73m2 CKD-EP I Creatinine Equation (2020) Hematocrit Auto (Bld) [Volum e fraction]Ordered By: Luigi Tinoco on 01-22-2025 Hematocrit (Bld) [Volume fraction] 36.8 % Low 37-47 [facility] Hemoglobin (Reticulocytes) [ Entitic mass]Ordered By: Luigi Tinoco on 01-22-2025 Reticulocyte Hemoglobin Equivalent 35.1 pg High 30-35 [facility] Hemoglobin measurementOrdere d By: Luigi Tinoco on 01-22-2025 Hemoglobin (Bld) [Mass/Vol] 11.8 g/dL Low 12.0-15.0 [facility] Immature granulocytes/100 WB C Auto (Bld)Ordered By: Luigi Tinoco on 01-22-2025 Immature granulocytes/100 WBC (Bld) 0.400 % 0.0-0.9 [facility] Comment on above: IG% - Immature Granu locytes (promyelocytes, myelocytes and metamyelocytes) > 1% indicates that a LEFT SHIFT is Present. Immature reticulocyte fracti onOrdered By: Luigi Tinoco on 01-22-2025 Immature Reticulocyte Fraction 8.80 % 3.00-15.90 [facility] Iron (Unsp spec) [Mass/Mass] Ordered By: [facility] on 01-22-2025 Iron [Mass/Vol] 74 ug/dL 50-170 [facility] Iron measurement (mass/mass) Ordered By: [facility] Tin[facility] on 01-22-2025 Iron (Unsp spec) [Mass/Mass] 74 ug/dL 50-170 [facility] Iron saturation [Mass fracti on]Ordered By: [facility] Tin[facility] on 01-22-2025 Iron Saturation 30.0 % 15.0-55.0 [facility] Iron+Iron Binding Capacityon 01-22-2025 Iron [Mass/Vol] 74 ug/dL Normal 50-170 [facility] Comment on above: Performed By: #### L 500.2500, L100.9950, L3100.1350, L503.6550, L503.6030, L100.0100 ####[facility] [address] [place], [address] IRON SATURATION 30.0 Normal 15.0-55.0 [facility] Comment on above: Performed By: #### L 500.2500, L100.9950, L3100.1350, L503.6550, L503.6030, L100.0100 ####[facility] [address] [place], [address] TIBC 248 ug/dL Low 250-450 [facility] Comment on above: Performed By: #### L 500.2500, L100.9950, L3100.1350, L503.6550, L503.6030, L100.0100 ####[facility] [address] [place], [address] UIBC 174 ug/dL Low 228-428 [facility] Comment on above: Performed By: #### L 500.2500, L100.9950, L3100.1350, L503.6550, L503.6030, L100.0100 ####[facility] [address] [place], [address] Lymphocytes Auto (Unsp spec) [#/Vol]Ordered By: Luigi Tinoco on 01-22-2025 Lymphocytes (Bld) [#/Vol] 2.11 10*3/uL 0.83-4.51 [facility] Lymphocytes/100 WBC Auto (Un sp spec)Ordered By: Luigi Tinoco on 01-22-2025 Lymphocytes/100 WBC (Bld) 27.6 % 19-41 [facility] MCV (mean corpuscular volume ) determinationOrdered By: Luigi Tinoco on 01-22-2025 MCV (RBC) [Entitic vol] 94.4 fL 81-99 [facility] Mean corpuscular hemoglobin (MCH) determinationOrdered By: Luigi Tinoco on 01-22-2025 MCH (RBC) [Entitic mass] 30.3 pg 27.0-32.0 [facility] Mean corpuscular hemoglobin concentration (MCHC) determinationOrdered By: Luigi Tinoco on 01-22-2025 MCHC (RBC) [Mass/Vol] 32.1 g/dL 32-36 [facility] Mean platelet volume determi nationOrdered By: Luigi Tinoco on 01-22-2025 Platelet mean volume (Bld) [Entitic vol] 10.8 fL 6.2-12.0 [facility] Monocyte percentageOrdered B y: Luigi Tinoco on 01-22-2025 Monocytes/100 WBC (Bld) 6.0 % 0-10 [facility] Neutrophil percentageOrdered By: [facility] Earnest on 01-22-2025 Neutrophils/100 WBC (Bld) 64.2 % 47-70 [facility] No Panel InformationOrdered By: Afiatamir Tinoco on 01-22-2025 Unsaturated Iron Binding Capacity 174 ug/dL Low 228-428 [facility] 174 ug/dL Low 228-428 [facility] Nucleated red blood cell per centageOrdered By: Luigi Tinoco on 01-22-2025 Nucleated RBC/100 WBC (Bld) [Ratio] 0 % 0-5 [facility] Platelet countOrdered By: Chase Tinoco on 01-22-2025 Platelets (Bld) [#/Vol] 143 10*3/uL Low 150-450 [facility] RBC Auto (Bld) [#/Vol]Ordere d By: Luigi Tinoco on 01-22-2025 RBC (Bld) [#/Vol] 3.90 10*6/uL Low 4.2-5.4 [facility] Retic Panelon 01-22-2025 IM RET FRACTION 8.80 Normal 3.00-15.90 [facility] Comment on above: Performed By: #### L 500.2500, L100.9950, L3100.1350, L503.6550, L503.6030, L100.0100 ####[facility] [address] [place], [address] RET-HE 35.1 pg High 30-35 [facility] Comment on above: Performed By: #### L 500.2500, L100.9950, L3100.1350, L503.6550, L503.6030, L100.0100 ####[facility] [address] [place], [address] Retic Count 1.22 Normal 0.5-1.5 [facility] Comment on above: Performed By: #### L 500.2500, L100.9950, L3100.1350, L503.6550, L503.6030, L100.0100 ####[facility] [address] [place], [address] Reticulocyte hemoglobin equi valent (RET-He) measurementOrdered By: Luigi Tinoco on 01-22-2025 Hemoglobin (Reticulocytes) [Entitic mass] 35.1 pg High 30-35 [facility] Reticulocytes Auto (Bld) [#/ Vol]Ordered By: Luigi Tinoco on 01-22-2025 Reticulocyte Count 1.22 % 0.5-1.5 [facility] Reticulocytes/100 RBC (Bld) 1.22 % 0.5-1.5 [facility] Serum creatinine measurement (mass/volume)Ordered By: Luigi Tinoco on 01-22-2025 Creatinine [Mass/Vol] 1.17 mg/dL 0.70-1.20 [facility] Serum glucose measurement (m ass/volume)Ordered By: Luigi Tinoco on 01-22-2025 Glucose [Mass/Vol] 207 mg/dL High 70-99 [facility] Serum or plasma anion gap de termination (moles/volume)Ordered By: Luigi Tinoco on 01-22-2025 Anion gap [Moles/Vol] 9 mmol/L 5-15 [facility] Serum or plasma calcium loco urement (mass/volume)Ordered By: Luigi Tinoco on 01-22-2025 Calcium [Mass/Vol] 9.1 mg/dL 7.6-11.0 [facility] Serum or plasma erythropoiet in (EPO) measurement (units/volume)Ordered By: Luigi Tinoco on 01-22-2025 Erythropoietin (EPO) Qn 10.1 mIU/mL 2.6-18.5 [facility] Comment on above: Paulo Generaytor el DxI 800 Immunoassay SystemValues obtained with different assay methods or kits cannotbe used interchangeably. Results cannot be interpreted asabsolute evidence of the presence or absence of malignantdisease.Performed at: [employer] [id number] Director: Bulmaro Nesbitt PhD, Phone: [phone] Serum or plasma ferritin donald surement (mass/volume)Ordered By: Luigi Tinoco on 01-22-2025 Ferritin [Mass/Vol] 95 ng/mL 22-378 [facility] Serum or plasma iron saturat ion measurement (mass fraction)Ordered By: Luigi Tinoco on 01-22-2025 Iron saturation [Mass fraction] 30.0 % 15.0-55.0 [facility] Serum or plasma potassium me asurementOrdered By: [facility] on 01-22-2025 Potassium [Moles/Vol] 4.3 mmol/L 3.3-5.1 [facility] Serum or plasma sodium measu rement (moles/volume)Ordered By: [facility] 01-22[facility]2025 Sodium [Moles/Vol] 140 mmol/L 133-145 [facility] Serum or plasma urea nitroge n measurement (mass/volume)Ordered By: [facility] Earnest on 01-22-2025 Urea nitrogen [Mass/Vol] 20 mg/dL High 4-19 [facility] White blood cell (WBC) count Ordered By: Luigi Tinoco on 01-22-2025 WBC (Bld) [#/Vol] 7.7 10*3/uL 4.4-11.0 [facility] CNPNon 01-19-2025 CNPN Telephone (NRMDN) MANSI CARO ([id number]) 1955 F Date Time Provider Department 01/19/25 LEYLA MURPHY During your visit today, we recorded the following information about you: Pat Dipti 01/19/2025 2:25 PM Signed Patient was inappropriately [...] has been notified of appt change via [employer] message. Dipti Dodgealeksandar Allergies As of Date: 01/19/2025 Noted Allergy Reaction LIPITOR (ATORVASTATIN CALCIUM) 04/03/2010 Comments: Heart racing; 07/04/10 patient states that she had started a lot of medication at this time and the she did not have a true allergic reaction and is willing to rechallenge [facility] RN Date Reviewed: 05/17/2024 Reviewed by: [...] Status:Closed by DIPTI STEWART on 01/19/25 Normal [facility] [facility] CT CHEST WO IVCONon 01-19-20 CT CHEST WO IVCON * * *Final Report* * * DATE OF EXAM: Jan 19 2025 10:24AM [facility] [place] - CT CHEST WO IVCON / [...] significantly enlarged lymph nodes in the chest. Public Information Officer: MARC Transcribe Date/Time: Jan 23 2025 7:44P Dictated by : MARIANELA WILSON MD This examination was interpreted and the report reviewed and electronically signed by: MARIANELA WILSON MD on Jan 23 2025 7:49PM EST [id number] Normal [facility] Cardiology Visit Reporton Cardiology Visit Report Normal [facility] MRA Neck WITH and W/O Contra ston 12-22-2024 MRA Neck WITH and W/O Contrast Normal [facility] Pelvic (Non )on 11-24 Pelvic (Non ) Normal [facility] Calprotectin, Stoolon [address] 190 ug/g Abnormal 0-120 [facility] Comment on above: Result Comment: Conc entration Interpretation Follow-Up< 5 - 50 ug/g Normal None>50 -120 ug/g Borderline Re-evaluate in 4-6 weeks >120 ug/g Abnormal Repeat as clinically indicatedPerformed at: [employer] [id number] Director: Stanton Vargas MD, Phone: [phone] Performed By: #### L 7000.0700, L7000.0750 ####[facility] [address] [place], [place], [id number] MR/BMS.BVSon 12-19-2024 MR/BMS.BVS Normal [facility] L7000.0750on 12-18-2024 P ELASTASE,FECA 416 Normal >200 [facility] Comment on above: Result Comment: Resu lt Units: ug Elast./g Severe Pancreatic Insufficiency: <100 Moderate Pancreatic Insufficiency: 100 - 200 Normal: >200Performed at: [facility] [address] [id number] Director: Stanton Vargas MD, Phone: [phone] Performed By: #### L 7000.0700, L7000.0750 ####[facility] [address] [place], [place], [address] 36on 12-16-2024 36 S: Patient spoke wit [...] of Dec. He states they saw an ENERGY ADVISOR earlier this week who recommended pain mgmt. [...] (e.g., Scale 1-10; mild, moderate, or severe) 10 7. RECURRENT SYMPTOM: Have you ever had [...] Protocols used: Abdominal Pain - ADULT-AH Normal [facility] Calprotectin stoolOrdered By : Rosa Rodriguez on 12-15-2024 Calprotectin stool 190 ug/g High 0-120 [facility] Comment on above: Concentration Interp retation Follow-Up< 5 - 50 ug/g Normal None>50 -120 ug/g Borderline Re-evaluate in 4-6 weeks >120 ug/g Abnormal Repeat as clinically indicatedPerformed at: [employer] [id number] Director: Stanton Vargas MD, Phone: [phone] Stool Calprotectin 190 ug/g High 0-120 [facility] Comment on above: Concentration Interp retation Follow-Up< 5 - 50 ug/g Normal None>50 -120 ug/g Borderline Re-evaluate in 4-6 weeks >120 ug/g Abnormal Repeat as clinically indicatedPerformed at: [employer] [id number] Director: Stanton Vargas MD, Phone: [phone] Elastase.pancreatic (Stl) [M ass/Mass]Ordered By: Rosa Rodriguez on 12-15-2024 Stool Pancreatic Elastase 416 >200 [facility] Comment on above: Result Units: ug Stephanie st./g Severe Pancreatic Insufficiency: <100 Moderate Pancreatic Insufficiency: 100 - 200 Normal: >200Performed at: [employer] [id number] Director: Stanton Vargas MD, Phone: [phone] Stool pancreatic elastase me asurement (mass/mass)Ordered By: Rosa Rodriguez on 12-15-2024 Elastase.pancreatic (Stl) [Mass/Mass] 416 >200 [facility] Comment on above: Result Units: ug Stephanie st./g Severe Pancreatic Insufficiency: <100 Moderate Pancreatic Insufficiency: 100 - 200 Normal: >200Performed at: [employer] [id number] Director: Stanton Vargas MD, Phone: [phone] No Panel Informationon 12-13 [facility] Visit Repor ton 12-12-2024 Gastroenterology Visit Report Normal [facility] Cardiology Visit Reporton Cardiology Visit Report Normal [facility] 36on 11-24-2024 36 Name of caller: Beatrice lobo Contact phone number: [phone] Relationship to Patient: spouse/SO Provider: John Practice: [facility] Chief Complaint/Reason for Call: Patient , Beatrice, is calling to follow up with Dr. Lopez after patient appointment with her Gasteoenterologist. He is requesting a call back to discuss what happened at her appointment regarding her colitis diagnosis. He can be reached at [phone]. Best time of day caller can be reached: Any Patient advised that office/PCP has 24-48 business hours to return their call: N/A Normal [facility] Visit Repor ton 11-23-2024 Gastroenterology Visit Report Normal [facility] Abdomen/Pelvis W IV Cont ONL Yon 11-18-2024 Abdomen/Pelvis W IV Cont ONLY Normal [facility] Absolute neutrophil countOrd ered By: Breann East on 11-18-2024 Neutrophils (Bld) [#/Vol] 3.3 10*3/uL 2.0-7.7 [facility] Albumin to globulin ratioOrd ered By: Breann East on 11-18-2024 Albumin/Globulin [Mass ratio] 0.9 {ratio} 0.9-2.4 [facility] Basophil percentageOrdered B y: Breann East on 11-18-2024 Basophils/100 WBC (Bld) 0.4 % 0-1 [facility] Bilirubin Test strip Ql (U)O rdered By: Breann East on 11-18-2024 Bilirubin Ql (U) Negative Negative [facility] Bilirubin, totalOrdered By: Breann East on 11-18-2024 Bilirubin [Mass/Vol] 0.30 mg/dL 0.20-1.00 [facility] Comment on above: For patients on eltr ombopag therapy, use of Dimension Wright TBIL is not recommended. Blood urea nitrogen (BUN)/cr eatinine ratioOrdered By: Breann East on 11-18-2024 Urea nitrogen/Creatinine [Mass ratio] 26.5 mg/mg High 10-20 [facility] CBC W/Diff, Automatedon 12-2 Absolute Lymph 2.93 X10 3/uL Normal 0.83-4.51 [facility] Comment on above: Performed By: #### L 100.0100, L500.4050, L501.2450 ####[facility] [address] [place], [address] Absolute Neut 3.3 X10 3/uL Normal 2.0-7.7 [facility] Comment on above: Performed By: #### L 100.0100, L500.4050, L501.2450 ####[facility] [address] [place], [address] Basophils/100 WBC (Bld) 0.4 % Normal 0-1 [facility] Comment on above: Performed By: #### L 100.0100, L500.4050, L501.2450 ####[facility] [address] [place], [address] Eosinophils/100 WBC (Bld) 2.0 % Normal 0-5 [facility] Comment on above: Performed By: #### L 100.0100, L500.4050, L501.2450 ####[facility] [address] [place], [address] Erythrocyte distribution width (RBC) [Ratio] 13.8 % Normal 11.6-14.6 [facility] Comment on above: Performed By: #### L 100.0100, L500.4050, L501.2450 ####[facility] [address] [place], [address] Hematocrit (Bld) [Volume fraction] 39.2 % Normal 37-47 [facility] Comment on above: Performed By: #### L 100.0100, L500.4050, L501.2450 ####[facility] [address] [place], [address] Hemoglobin (Bld) [Mass/Vol] 12.7 g/dL Normal 12.0-15.0 [facility] Comment on above: Performed By: #### L 100.0100, L500.4050, L501.2450 ####[facility] [address] [place], [address] IG% 0.100 Normal 0.0-0.9 [facility] Comment on above: Result Comment: IG% - Immature Granulocytes (promyelocytes, myelocytes andmetamyelocytes) > 1% indicates that a LEFT SHIFT is Present. Performed By: #### L 100.0100, L500.4050, L501.2450 ####[facility] [address] [place], [address] Lymphocytes/100 WBC (Bld) 42.7 % High 19-41 [facility] Comment on above: Performed By: #### L 100.0100, L500.4050, L501.2450 ####[facility] [address] [place], [address] MCH (RBC) [Entitic mass] 30.2 pg Normal 27.0-32.0 [facility] Comment on above: Performed By: #### L 100.0100, L500.4050, L501.2450 ####[facility] [address] [place], [address] MCHC (RBC) [Mass/Vol] 32.4 g/dL Normal 32-36 [facility] Comment on above: Performed By: #### L 100.0100, L500.4050, L501.2450 ####[facility] [address] [place], [address] MCV (RBC) [Entitic vol] 93.3 fL Normal 81-99 [facility] Comment on above: Performed By: #### L 100.0100, L500.4050, L501.2450 ####[facility] [address] [place], [address] Monocytes/100 WBC (Bld) 6.7 % Normal 0-10 [facility] Comment on above: Performed By: #### L 100.0100, L500.4050, L501.2450 ####[facility] [address] [place], [address] Neutrophils/100 WBC (Bld) 48.1 % Normal 47-70 [facility] Comment on above: Performed By: #### L 100.0100, L500.4050, L501.2450 ####[facility] [address] [place], [address] Nucleated RBC (Bld) [#/Vol] 0 10*3/uL Normal 0-5 [facility] Comment on above: Performed By: #### L 100.0100, L500.4050, L501.2450 ####[facility] [address] [place], [address] Platelet mean volume (Bld) [Entitic vol] 11.7 fL Normal 6.2-12.0 [facility] Comment on above: Performed By: #### L 100.0100, L500.4050, L501.2450 ####[facility] [address] [place], [address] Platelets (Bld) [#/Vol] 153 10*3/uL Normal 150-450 [facility] Comment on above: Performed By: #### L 100.0100, L500.4050, L501.2450 ####[facility] [address] [place], [address] RBC (Bld) [#/Vol] 4.20 10*6/uL Normal 4.2-5.4 [facility] Comment on above: Performed By: #### L 100.0100, L500.4050, L501.2450 ####[facility] [address] [place], [address] RDW SD 47.0 fl High 35.1-43.9 [facility] Comment on above: Performed By: #### L 100.0100, L500.4050, L501.2450 ####[facility] [address] [place], [address] WBC (Bld) [#/Vol] 6.9 10*3/uL Normal 4.4-11.0 [facility] Comment on above: Performed By: #### L 100.0100, L500.4050, L5.2450 ####[facility] [address] [place], [address] Carbon dioxide measurementOr dered By: Breann East on 11-18-2024 CO2 [Moles/Vol] 29.0 mmol/L 21.0-32.0 [facility] Chloride measurementOrdered By: Breann East on 11-18-2024 Chloride [Moles/Vol] 107 mmol/L 98-107 [facility] Comprehensive Metabolic Prof ilon 11-18-2024 Albumin [Mass/Vol] 3.6 g/dL Normal 3.2-5.0 [facility] Comment on above: Performed By: #### L 100.0100, L500.4050, L5.2450 ####[facility] [address] [place], [address] Albumin/Globulin [Mass ratio] 0.9 {ratio} Normal 0.9-2.4 [facility] Comment on above: Performed By: #### L 100.0100, L500.4050, L501.2450 ####[facility] [address] [place], [address] ALK P 52 U/L Normal 45-117 [facility] Comment on above: Performed By: #### L 100.0100, L500.4050, L501.2450 ####[facility] [address] [place], [address] ALT [Catalytic activity/Vol] 21 U/L Normal 13-56 [facility] Comment on above: Performed By: #### L 100.0100, L500.4050, L501.2450 ####[facility] [address] [place], [address] AST [Catalytic activity/Vol] 19 U/L Normal 15-37 [facility] Comment on above: Performed By: #### L 100.0100, L500.4050, L501.2450 ####[facility] [address] [place], [address] Bilirubin [Mass/Vol] 0.30 mg/dL Normal 0.20-1.00 [facility] Comment on above: Result Comment: For patients on eltrombopag therapy, use of Dimension Wright TBIL is not recommended. Performed By: #### L 100.0100, L500.4050, L501.2450 ####[facility] [address] [place], [address] BUN/CRE 26.5 RATIO High 10-20 [facility] Comment on above: Performed By: #### L 100.0100, L500.4050, L501.2450 ####[facility] [address] [place], [address] CA,Total 9.2 mg/dL Normal 8.5-10.1 [facility] Comment on above: Performed By: #### L 100.0100, L500.4050, L501.2450 ####[facility] [address] [place], [address] Chloride [Moles/Vol] 107 mmol/L Normal 98-107 [facility] Comment on above: Performed By: #### L 100.0100, L500.4050, L501.2450 ####[facility] [address] [place], [address] CO2 [Moles/Vol] 29.0 mmol/L Normal 21.0-32.0 [facility] Comment on above: Performed By: #### L 100.0100, L500.4050, L501.2450 ####[facility] [address] [place], [address] Creatinine [Mass/Vol] 1.02 mg/dL Normal 0.55-1.02 [facility] Comment on above: Result Comment: The validity of the calculated GFR GFRAA in patients over70 years has not been determined. Clinical correlation isessential. Performed By: #### L 100.0100, L500.4050, L501.2450 ####[facility] [address] [place], [address] EST GFR - AA 69 mL/min Normal >60 [facility] Comment on above: Result Comment: Afri can Cypriot GFR Calc Performed By: #### L 100.0100, L500.4050, L501.2450 ####[facility] [address] [place], [address] GAP 3 Low 5-15 [facility] Comment on above: Performed By: #### L 100.0100, L500.4050, L501.2450 ####[facility] [address] [place], [address] GFR/1.73 sq M.predicted among non-blacks MDRD (S/P/Bld) [Vol rate/Area] 57 mL/min/{1.73_m2} Low >60 [facility] Comment on above: Result Comment: Non- GFR Calc Performed By: #### L 100.0100, L500.4050, L501.2450 ####[facility] [address] [place], [address] Globulin (S) [Mass/Vol] 3.8 g/dL Normal 2.2-4.2 [facility] Comment on above: Performed By: #### L 100.0100, L500.4050, L501.2450 ####[facility] [address] [place], [address] Glucose [Mass/Vol] 209 mg/dL High 74-106 [facility] Comment on above: Result Comment: Gluc ose result greater than or equal to 200 mg/dLsuggests DIABETES MELLITUS per A.D.A. criteria. Performed By: #### L 100.0100, L500.4050, L501.2450 ####[facility] [address] [place], [address] Potassium [Moles/Vol] 4.4 mmol/L Normal 3.5-5.1 [facility] Comment on above: Performed By: #### L 100.0100, L500.4050, L501.2450 ####[facility] [address] [place], [address] Sodium [Moles/Vol] 138 mmol/L Normal 136-145 [facility] Comment on above: Performed By: #### L 100.0100, L500.4050, L501.2450 ####[facility] [address] [place], [address] T PROT 7.4 g/dL Normal 6.4-8.2 [facility] Comment on above: Performed By: #### L 100.0100, L500.4050, L501.2450 ####[facility] [address] [place], [address] Urea nitrogen [Mass/Vol] 27 mg/dL High 7-18 [facility] Comment on above: Performed By: #### L 100.0100, L500.4050, L501.2450 ####[facility] [address] [place], [address] Emergency Department Summary on 11-18-2024 Emergency Department Summary Normal [facility] Eosinophil percentageOrdered By: Breann East on 11-18-2024 Eosinophils/100 WBC (Bld) 2.0 % 0-5 [facility] Epithelial cells.squamous LM Ql (Urine sed)Ordered By: Breann East on 11-18-2024 Epithelial cells.squamous LM.HPF (Urine sed) [#/Area] 0 /[HPF] 5-10 [facility] Erythrocyte distribution wid th (RBC) [Ratio]Ordered By: Breann East on 11-18-2024 Erythrocyte distribution width (RBC) [Entitic vol] 47.0 fL High 35.1-43.9 [facility] Erythrocyte distribution wid th ratioOrdered By: Breann East on 11-18-2024 Erythrocyte distribution width (RBC) [Ratio] 13.8 % 11.6-14.6 [facility] Estimated glomerular filtrat ion rate (GFR) AmericanOrdered By: Breann East on 11-18-2024 Estimated GFR (MDRD) Amer 69 mL/min >60 [facility] Comment on above: GFR Calc Glomerular filtration rate ( GFR) estimationOrdered By: Breann East on 11-18-2024 Estimated GFR (MDRD) Non-Af Amer 57 mL/min Low >60 [facility] Comment on above: Non- GFR Calc Glucose Ql (U)Ordered By: Tanya East on 11-18-2024 Glucose (U) [Mass/Vol] 1000 mg/dL High Normal [facility] Glucose measurementOrdered B y: Breann East on 11-18-2024 Glucose [Mass/Vol] 209 mg/dL High 74-106 [facility] Comment on above: Glucose result great er than or equal to 200 mg/dLsuggests DIABETES MELLITUS per A.D.A. criteria. Hematocrit Auto (Bld) [Volum e fraction]Ordered By: Breann East on 11-18-2024 Hematocrit (Bld) [Volume fraction] 39.2 % 37-47 [facility] Hemoglobin measurementOrdere d By: Breann East on 11-18-2024 Hemoglobin (Bld) [Mass/Vol] 12.7 g/dL 12.0-15.0 [facility] Immature granulocytes/100 WB C Auto (Bld)Ordered By: Breann East on 11-18-2024 Immature granulocytes/100 WBC (Bld) 0.100 % 0.0-0.9 [facility] Comment on above: IG% - Immature Granu locytes (promyelocytes, myelocytes and metamyelocytes) > 1% indicates that a LEFT SHIFT is Present. Ketones Test strip Ql (U)Ord ered By: Breann East on 11-18-2024 Ketones Ql (U) Negative Negative [facility] Laboratory - Chemistry and C hemistry - challengeOrdered By: Breann East on 11-18-2024 AST [Catalytic activity/Vol] 19 U/L 15-37 [facility] Lipaseon 11-18-2024 Lipase [Catalytic activity/Vol] 49 U/L Normal 13-75 [facility] Comment on above: Result Comment: Josy fay note:LIPASE revised reference range effective 23.New Lipase methodology. Expected to produce lower valuesthan the previous assay method.NEW Reference Range: 13 - 75 U/L Performed By: #### L 100.0100, L500.4050, L501.2450 ####[facility] [address] [place], [address] Lipase measurementOrdered By : Breann East on 11-18-2024 Lipase [Catalytic activity/Vol] 49 U/L 13-75 [facility] Comment on above: Please note:LIPASE r evised reference range effective 23. New Lipase methodology. Expected to produce lower values than the previous assay method. NEW Reference Range: 13 - 75 U/L Lymphocytes Auto (Unsp spec) [#/Vol]Ordered By: Breann East on 11-18-2024 Lymphocytes (Bld) [#/Vol] 2.93 10*3/uL 0.83-4.51 [facility] Lymphocytes/100 WBC Auto (Un sp spec)Ordered By: Breann East on 11-18-2024 Lymphocytes/100 WBC (Bld) 42.7 % High 19-41 [facility] MCV (mean corpuscular volume ) determinationOrdered By: Breann East on 11-18-2024 MCV (RBC) [Entitic vol] 93.3 fL 81-99 [facility] Mean corpuscular hemoglobin (MCH) determinationOrdered By: Breann East on 11-18-2024 MCH (RBC) [Entitic mass] 30.2 pg 27.0-32.0 [facility] Mean corpuscular hemoglobin concentration (MCHC) determinationOrdered By: Breann East on 11-18-2024 MCHC (RBC) [Mass/Vol] 32.4 g/dL 32-36 [facility] Mean platelet volume determi nationOrdered By: Breann East on 11-18-2024 Platelet mean volume (Bld) [Entitic vol] 11.7 fL 6.2-12.0 [facility] Microscopic analysis of urin e for red blood cells (RBC)Ordered By: Breann East on 11-18-2024 Urine RBC 0-5 SEEN /hpf 0-5 [facility] Monocyte percentageOrdered B y: Breann East on 11-18-2024 Monocytes/100 WBC (Bld) 6.7 % 0-10 [facility] Mucus LM Ql (Urine sed)Order ed By: Breann East on 11-18-2024 Mucus Ql (Urine sed) 0 SEEN /hpf [facility] Neutrophil percentageOrdered By: Breann East on 11-18-2024 Neutrophils/100 WBC (Bld) 48.1 % 47-70 [facility] Nitrite Test strip Ql (U)Ord ered By: Breann East on 11-18-2024 Nitrite Ql (U) Negative Negative [facility] Nucleated red blood cell per centageOrdered By: Breann East on 11-18-2024 Nucleated RBC/100 WBC (Bld) [Ratio] 0 % 0-5 [facility] Platelet countOrdered By: Tanya East on 11-18-2024 Platelets (Bld) [#/Vol] 153 10*3/uL 150-450 [facility] Potassium measurementOrdered By: Breann East on 12-28-2024 Potassium [Moles/Vol] 4.4 mmol/L 3.5-5.1 [facility] Protein Test strip Ql (U)Ord ered By: Breann East on 11-18-2024 Protein Ql (U) Negative Negative [facility] RBC Auto (Bld) [#/Vol]Ordere d By: Breann East on 11-18-2024 RBC (Bld) [#/Vol] 4.20 10*6/uL 4.2-5.4 [facility] Serum anion gap measurementO rdered By: Breann East on 11-18-2024 Anion gap [Moles/Vol] 3 mmol/L Low 5-15 [facility] Serum globulin measurementOr dered By: Breann East on 11-18-2024 Globulin (S) [Mass/Vol] 3.8 g/dL 2.2-4.2 [facility] Serum or plasma alanine cisneros otransferase (ALT) measurementOrdered By: Breann East on 11-18-2024 ALT [Catalytic activity/Vol] 21 U/L 13-56 [facility] Serum or plasma albumin loco urement (mass/volume)Ordered By: Breann East on 11-18-2024 Albumin [Mass/Vol] 3.6 g/dL 3.2-5.0 [facility] Serum or plasma alkaline sergio sphatase measurementOrdered By: Breann East on 11-18-2024 ALP [Catalytic activity/Vol] 52 U/L 45-117 [facility] Serum or plasma calcium loco urement (mass/volume)Ordered By: Breann East on 11-18-2024 Calcium [Mass/Vol] 9.2 mg/dL 8.5-10.1 [facility] Serum or plasma creatinine m easurement (mass/volume)Ordered By: Breann East on 11-18-2024 Creatinine [Mass/Vol] 1.02 mg/dL 0.55-1.02 [facility] Comment on above: The validity of the calculated GFR & GFRAA in patients over 70 years has not been determined. Clinical correlation is essential. Serum or plasma urea nitroge n measurement (mass/volume)Ordered By: Breann East on 11-18-2024 Urea nitrogen [Mass/Vol] 27 mg/dL High 7-18 [facility] Sodium levelOrdered By: Celestino regineemmett East on 11-18-2024 Sodium [Moles/Vol] 138 mmol/L 136-145 [facility] Total proteinOrdered By: Chaz misty Cruzito on 11-18-2024 Protein [Mass/Vol] 7.4 g/dL 6.4-8.2 [facility] Transitional cells LM Ql (Ur ine sed)Ordered By: Breann East on 11-18-2024 Urine Transitional Epithelial Cells 0-5 SEEN /hpf 0-5 [facility] Urinalysis, Completeon 11-18 EPI,SQUAMOUS 0-5 SEEN Normal 5-10 [facility] Comment on above: Order Comment: CLEAN CATCH Performed By: #### L 400.0001 ####[facility] [address] [place], [address] EPI,TRANSITION 0-5 SEEN Normal 0-5 [facility] Comment on above: Order Comment: CLEAN CATCH Performed By: #### L 400.0001 ####[facility] [address] [place], [address] WBC 0-5 SEEN Normal 0-5 [facility] Comment on above: Order Comment: CLEAN CATCH Performed By: #### L 400.0001 ####[facility] [address] [place], [address] BACTERIA 1+ /hpf Normal None Seen [facility] Comment on above: Order Comment: CLEAN CATCH Performed By: #### L 400.0001 ####[facility] [address] [place], [address] RBC 0-5 SEEN Normal 0-5 [facility] Comment on above: Order Comment: CLEAN CATCH Performed By: #### L 400.0001 ####[facility] [address] [place], [address] Mucus Ql (Urine sed) 0 SEEN Normal [facility] Comment on above: Order Comment: CLEAN CATCH Performed By: #### L 400.5699 ####[facility] [address] [place], [address] Urinalysis, Routine (Dipstic k)on 11-18-2024 BILIRUBIN URINE Normal Negative [facility] Comment on above: Order Comment: CLEAN CATCH Result Comment: Canc elled via OM: MD Ordered Performed By: #### L 400.2010 ####[facility] [address] [place], [address] Clarity (U) Normal Clear [facility] Comment on above: Order Comment: CLEAN CATCH Result Comment: Canc elled via OM: MD Ordered Performed By: #### L 400.2010 ####[facility] [address] [place], [address] Color (U) Normal Yellow [facility] Comment on above: Order Comment: CLEAN CATCH Result Comment: Canc elled via OM: MD Ordered Performed By: #### L 400.2010 ####[facility] [address] [place], [address] GLUCOSE, UR Normal Normal [facility] Comment on above: Order Comment: CLEAN CATCH Result Comment: Canc elled via OM: MD Ordered Performed By: #### L 400.2010 ####[facility] [address] [place], [address] KETONE UR Normal Negative [facility] Comment on above: Order Comment: CLEAN CATCH Result Comment: Canc elled via OM: MD Ordered Performed By: #### L 400.2010 ####[facility] [address] [place], [address] LEUK ESTERASE Normal Negative [facility] Comment on above: Order Comment: CLEAN CATCH Result Comment: Canc elled via OM: MD Ordered Performed By: #### L 400.2010 ####[facility] [address] [place], [address] Nitrite Ql (U) Normal Negative [facility] Comment on above: Order Comment: CLEAN CATCH Result Comment: Canc elled via OM: MD Ordered Performed By: #### L 400.2010 ####[facility] [address] [place], [address] OCCULT BLOOD-UR Normal Negative [facility] Comment on above: Order Comment: CLEAN CATCH Result Comment: Canc elled via OM: MD Ordered Performed By: #### L 400.2010 ####[facility] [address] [place], [address] pH UR Normal 5.0 - 8.0 [facility] Comment on above: Order Comment: CLEAN CATCH Result Comment: Canc elled via OM: MD Ordered Performed By: #### L 400.2010 ####[facility] [address] [place], [address] PROT DIPSTX Normal Negative [facility] Comment on above: Order Comment: CLEAN CATCH Result Comment: Canc elled via OM: MD Ordered Performed By: #### L 400.2010 ####[facility] [address] [place], [address] SP.GR. DIPSTX Normal 1.002-1.030 [facility] Comment on above: Order Comment: CLEAN CATCH Result Comment: Canc elled via OM: MD Ordered Performed By: #### L 400.2010 ####[facility] [address] [place], [address] UR Preservative Normal [facility] Comment on above: Order Comment: CLEAN CATCH Result Comment: Canc elled via OM: MD Ordered Performed By: #### L 400.2010 ####[facility] [address] [place], [address] UROBILI Normal Normal [facility] Comment on above: Order Comment: CLEAN CATCH Result Comment: Canc elled via OM: MD Ordered Performed By: #### L 400.2010 ####[facility] [address] [place], [address] Urine blood detectionOrdered By: Breann East on 11-18-2024 Urine Occult Blood 50 /ul High Negative [facility] Urine clarityOrdered By: Chaz East on 11-18-2024 Clarity (U) Clear Clear [facility] Urine color determinationOrd ered By: Breann East on 11-18-2024 Color (U) YELLOW Yellow [facility] Urine leukocyte esterase det ection by dipstickOrdered By: Breann East on 11-18-2024 Leukocyte esterase Test strip Ql (U) Negative Negative [facility] Urine pHOrdered By: Niurka East on 11-18-2024 pH (U) 7.0 [pH] 5.0 - 8.0 [facility] Urine sediment bacteria coun t by microscopy (number/high power field)Ordered By: Breann East on 11-18-2024 Bacteria LM.HPF (Urine sed) [#/Area] 1 /[HPF] None Seen [facility] Urine specific gravity measu rementOrdered By: Breann East on 11-18-2024 Specific gravity (U) [Rel density] 1.005 1.002-1.030 [facility] Urobilinogen Ql (U)Ordered B y: Breann East on 11-18-2024 Urine Urobilinogen Normal mg/dl Normal [facility] White blood cell (WBC) count Ordered By: Breann East on 11-18-2024 WBC (Bld) [#/Vol] 6.9 10*3/uL 4.4-11.0 [facility] White blood cell countOrdere d By: Breann East on 11-18-2024 Urine WBC 0-5 SEEN /hpf 0-5 [facility] 36on 11-16-2024 36 Name of caller: Beatrice lobo Contact phone number: [phone] Relationship to Patient: spouse/SO Provider: Dr Marci Lopez Practice: [facility] Chief Complaint/Reason for Call: Song called to let doctor know appointment is set for 12/19/24 with vascular surgeon, and is not sure if that's soon enough. Please advise Best time of day caller can be reached: PM Normal [facility] Valerie 11-13-2024 CNPN Telephone ([id number]) MANSI CARO ([id number]) 1955 F Date Time Provider Department 11/13/24 [...] can prescribe to help with this? Pharmacy: [facility] in [place], [place] Janee Argueta RN 11/14/2024 9:27 AM [...] allergic reaction and is willing to rechallenge [facility] RN Date Reviewed: 05/17/2024 Reviewed by: [...] Status:Closed by GHAZALA GUSMAN on 11/14/24 Normal [facility] US CAROTID ARTERY DUPLE X BILATERALon 11-12-2024 [facility] US CAROTID ARTERY DUPLEX BILATERAL [...] Electronically Signed Date/Time: 11/12/2024 4:[address] [facility] Vascular US carotid artery d uplex [...] Electronically Signed Date/Time: 11/12/2024 4:33 PM EST [employer] [facility]SI [facility] 1955 [id number] Exam Date/Time: 11/10/2024 15:39 Procedure: [facility] US CAROTID ARTERY DUPLEX BILATERAL [...] 50% ECA systolic: 105 cm/sec Vertebral: [employer] [facility] Amadeo Hsu MD - 11/12/2024 Patient Name: MANSI CAR[facility] : 1955 [id number] Exam Date/Time: 11/10/2024 15:39 Procedure: [facility] US CAROTID ARTERY DUPLEX BILATERAL [...] MD Electronically Signed Date/Time: 11/12/2024 4:33 PM [facility] PanelClaw 12 Lead EKGon 11-02-2024 12 Lead EKG Normal [facility] Abdomen/Pelvis without Conto n 11-02-2024 Abdomen/Pelvis without Cont Normal [facility] BNP,B-Type NATRIURETIC PEPTI Ingrid 11-02-2024 Natriuretic peptide B (Bld) [Mass/Vol] 52.4 pg/mL Normal 0-100 [facility] Comment on above: Performed By: #### L 503.6620, L100.0500, L500.4050, L501.2450, L501.5425 ####[facility] [address] [place], [address] Brain/Head without Contrasto n 11-02-2024 Brain/Head without Contrast Normal [facility] CBC-Complete Blood Cnt No Di ffon 11-02-2024 Erythrocyte distribution width (RBC) [Ratio] 14.1 % Normal 11.6-14.6 [facility] Comment on above: Performed By: #### L 503.6620, L100.0500, L500.4050, L501.2450, L501.5425 ####[facility] [address] [place], [address] Hematocrit (Bld) [Volume fraction] 39.2 % Normal 37-47 [facility] Comment on above: Performed By: #### L 503.6620, L100.0500, L500.4050, L501.2450, L501.5425 ####[facility] [address] [place], [address] Hemoglobin (Bld) [Mass/Vol] 12.9 g/dL Normal 12.0-15.0 [facility] Comment on above: Performed By: #### L 503.6620, L100.0500, L500.4050, L501.2450, L501.5425 ####[facility] [address] [place], [address] MCH (RBC) [Entitic mass] 30.2 pg Normal 27.0-32.0 [facility] Comment on above: Performed By: #### L 503.6620, L100.0500, L500.4050, L501.2450, L501.5425 ####[facility] [address] [place], [address] MCHC (RBC) [Mass/Vol] 32.9 g/dL Normal 32-36 [facility] Comment on above: Performed By: #### L 503.6620, L100.0500, L500.4050, L501.2450, L501.5425 ####[facility] [address] [place], [address] MCV (RBC) [Entitic vol] 91.8 fL Normal 81-99 [facility] Comment on above: Performed By: #### L 503.6620, L100.0500, L500.4050, L501.2450, L501.5425 ####[facility] [address] [place], [address] Platelet mean volume (Bld) [Entitic vol] 11.2 fL Normal 6.2-12.0 [facility] Comment on above: Performed By: #### L 503.6620, L100.0500, L500.4050, L501.2450, L501.5425 ####[facility] [address] [place], [address] Platelets (Bld) [#/Vol] 138 10*3/uL Low 150-450 [facility] Comment on above: Performed By: #### L 503.6620, L100.0500, L500.4050, L501.2450, L501.5425 ####[facility] [address] [place], [address] RBC (Bld) [#/Vol] 4.27 10*6/uL Normal 4.2-5.4 [facility] Comment on above: Performed By: #### L 503.6620, L100.0500, L500.4050, L501.2450, L501.5425 ####[facility] [address] [place], [address] RDW SD 47.5 fl High 35.1-43.9 [facility] Comment on above: Performed By: #### L 503.6620, L100.0500, L500.4050, L501.2450, L501.5425 ####[facility] [address] [place], [address] WBC (Bld) [#/Vol] 12.7 10*3/uL High 4.4-11.0 [facility] Comment on above: Performed By: #### L 503.6620, L100.0500, L500.4050, L501.2450, L501.5425 ####[facility] [address] [place], [address] Chest 1 View (Portable)on Chest 1 View (Portable) Normal [facility] Comprehensive Metabolic Prof ilon 11-02-2024 Albumin [Mass/Vol] 4.0 g/dL Normal 3.2-5.0 [facility] Comment on above: Order Comment: 1Y Performed By: #### L 503.6620, L100.0500, L500.4050, L501.2450, L501.5425 ####[facility] [address] [place], [address] Albumin/Globulin [Mass ratio] 1.1 {ratio} Normal 0.9-2.4 [facility] Comment on above: Order Comment: 1Y Performed By: #### L 503.6620, L100.0500, L500.4050, L501.2450, L501.5425 ####[facility] [address] [place], [address] ALK P 64 U/L Normal 45-117 [facility] Comment on above: Order Comment: 1Y Performed By: #### L 503.6620, L100.0500, L500.4050, L501.2450, L501.5425 ####[facility] [address] [place], [address] ALT [Catalytic activity/Vol] 17 U/L Normal 13-56 [facility] Comment on above: Order Comment: 1Y Performed By: #### L 503.6620, L100.0500, L500.4050, L501.2450, L501.5425 ####[facility] [address] [place], [address] AST [Catalytic activity/Vol] 20 U/L Normal 15-37 [facility] Comment on above: Order Comment: 1Y Performed By: #### L 503.6620, L100.0500, L500.4050, L501.2450, L501.5425 ####[facility] [address] [place], [address] Bilirubin [Mass/Vol] 0.40 mg/dL Normal 0.20-1.00 [facility] Comment on above: Order Comment: 1Y Result Comment: For patients on eltrombopag therapy, use of Dimension Wright TBIL is not recommended. Performed By: #### L 503.6620, L100.0500, L500.4050, L501.2450, L501.5425 ####[facility] [address] [place], [address] BUN/CRE 23.1 RATIO High 10-20 [facility] Comment on above: Order Comment: 1Y Performed By: #### L 503.6620, L100.0500, L500.4050, L501.2450, L501.5425 ####[facility] [address] [place], [address] CA,Total 9.5 mg/dL Normal 8.5-10.1 [facility] Comment on above: Order Comment: 1Y Performed By: #### L 503.6620, L100.0500, L500.4050, L501.2450, L501.5425 ####[facility] [address] [place], [address] Chloride [Moles/Vol] 106 mmol/L Normal 98-107 [facility] Comment on above: Order Comment: 1Y Performed By: #### L 503.6620, L100.0500, L500.4050, L501.2450, L501.5425 ####[facility] [address] [place], [address] CO2 [Moles/Vol] 27.0 mmol/L Normal 21.0-32.0 [facility] Comment on above: Order Comment: 1Y Performed By: #### L 503.6620, L100.0500, L500.4050, L501.2450, L501.5425 ####[facility] [address] [place], [address] Creatinine [Mass/Vol] 1.30 mg/dL High 0.55-1.02 [facility] Comment on above: Order Comment: 1Y Result Comment: The validity of the calculated GFR GFRAA in patients over70 years has not been determined. Clinical correlation isessential. Performed By: #### L 503.6620, L100.0500, L500.4050, L501.2450, L501.5425 ####[facility] [address] [place], [address] ECRCL 38.97 ml/min Normal [facility] Comment on above: Order Comment: 1Y Performed By: #### L 503.6620, L100.0500, L500.4050, L501.2450, L501.5425 ####[facility] [address] [place], [address] EST GFR - AA 52 mL/min Low >60 [facility] Comment on above: Order Comment: 1Y Result Comment: Afri can Cypriot GFR Calc Performed By: #### L 503.6620, L100.0500, L500.4050, L501.2450, L501.5425 ####[facility] [address] [place], [address] GAP 5 Normal 5-15 [facility] Comment on above: Order Comment: 1Y Performed By: #### L 503.6620, L100.0500, L500.4050, L501.2450, L501.5425 ####[facility] [address] [place], [address] GFR/1.73 sq M.predicted among non-blacks MDRD (S/P/Bld) [Vol rate/Area] 43 mL/min/{1.73_m2} Low >60 [facility] Comment on above: Order Comment: 1Y Result Comment: Non- GFR Calc Performed By: #### L 503.6620, L100.0500, L500.4050, L501.2450, L501.5425 ####[facility] [address] [place], [address] Globulin (S) [Mass/Vol] 3.6 g/dL Normal 2.2-4.2 [facility] Comment on above: Order Comment: 1Y Performed By: #### L 503.6620, L100.0500, L500.4050, L501.2450, L501.5425 ####[facility] [address] [place], [address] Glucose [Mass/Vol] 224 mg/dL High 74-106 [facility] Comment on above: Order Comment: 1Y Result Comment: Gluc ose result greater than or equal to 200 mg/dLsuggests DIABETES MELLITUS per A.D.A. criteria. Performed By: #### L 503.6620, L100.0500, L500.4050, L501.2450, L501.5425 ####[facility] [address] [place], [address] Potassium [Moles/Vol] 4.4 mmol/L Normal 3.5-5.1 [facility] Comment on above: Order Comment: 1Y Performed By: #### L 503.6620, L100.0500, L500.4050, L501.2450, L501.5425 ####[facility] [address] [place], [address] Sodium [Moles/Vol] 138 mmol/L Normal 136-145 [facility] Comment on above: Order Comment: 1Y Performed By: #### L 503.6620, L100.0500, L500.4050, L501.2450, L501.5425 ####[facility] [address] [place], [address] T PROT 7.6 g/dL Normal 6.4-8.2 [facility] Comment on above: Order Comment: 1Y Performed By: #### L 503.6620, L100.0500, L500.4050, L501.2450, L501.5425 ####[facility] [address] [place], [address] Urea nitrogen [Mass/Vol] 30 mg/dL High 7-18 [facility] Comment on above: Order Comment: 1Y Performed By: #### L 503.6620, L100.0500, L500.4050, L501.2450, L501.5425 ####[facility] [address] [place], [address] Emergency Department Summary on 11-02-2024 Emergency Department Summary Normal [facility] L501.4020on 11-02-2024 TROPONIN-I HS 22 pg/mL Normal 3.0-54.0 [facility] Comment on above: Result Comment: Josy fay Note: New Test Units and Gender Specific Reference Ranges. For more information see Policy Stat Procedure Wright High Sensitivity Troponin (TNIH) and attachments. Performed By: #### L 501.4020 ####[facility] [address] [place], [address] L501.5425on 11-02-2024 TROPONIN-I HS 15 pg/mL Normal 3.0-54.0 [facility] Comment on above: Order Comment: 1Y Result Comment: Josy fay Note: New Test Units and Gender Specific Reference Ranges. For more information see Policy Stat Procedure Wright High Sensitivity Troponin (TNIH) and attachments. Performed By: #### L 503.6620, L100.0500, L500.4050, L501.2450, L501.5425 ####[facility] [address] [place], [address] Lipaseon 11-02-2024 Lipase [Catalytic activity/Vol] 41 U/L Normal 13-75 [facility] Comment on above: Order Comment: 1Y Result Comment: Josy fya note:LIPASE revised reference range effective 23.New Lipase methodology. Expected to produce lower valuesthan the previous assay method.NEW Reference Range: 13 - 75 U/L Performed By: #### L 503.6620, L100.0500, L500.4050, L501.2450, L501.5425 ####[facility] [address] [place], [address] M100.678on 11-02-2024 M100.678 Pending SARS-CoV-2 (COVID 19) Negative INFLUENZA A Negative INFLUENZA B Negative RSV PCR Negative Normal [facility] Comment on above: Performed By: #### M 100.678, L400.0001 ####[facility] [address] [place], [address] Urinalysis, Completeon 11-02 BACTERIA 0 SEEN Normal None Seen [facility] Comment on above: Order Comment: CLEAN CATCH Performed By: #### M 100.678, L400.0001 ####[facility] [address] [place], [address] EPI,SQUAMOUS 0 SEEN Normal 5-10 [facility] Comment on above: Order Comment: CLEAN CATCH Performed By: #### M 100.678, L400.0001 ####[facility] [address] [place], [address] Mucus Ql (Urine sed) 0 SEEN Normal [facility] Comment on above: Order Comment: CLEAN CATCH Performed By: #### M 100.678, L400.0001 ####[facility] [address] [place], [address] RBC 0 SEEN Normal 0-5 [facility] Comment on above: Order Comment: CLEAN CATCH Performed By: #### M 100.678, L400.0001 ####[facility] [address] [place], [address] WBC 0 SEEN Normal 0-5 [facility] Comment on above: Order Comment: CLEAN CATCH Performed By: #### M 100.678, L400.0001 ####[facility] [address] [place], [address] Gastroenterology Visit Repor ton 10-17-2024 Gastroenterology Visit Report Normal [facility] 36on 10-06-2024 36 Name of caller: Beatrice lobo Contact phone number: [phone] Relationship to Patient: spouse/SO Provider: Dr. Lopez Practice: [facility] Chief Complaint/Reason for Call: Song wanted to ask Dr. Lopez to consider long covid for patient. States all the symptoms are there. Requesting a call back to discuss. Please advise. Best time of day caller can be reached: any Patient advised that office/PCP has 24-48 business hours to return their call: Normal [facility] PET+CT Guidance for localiza tion of tumor [...] cm. MUSCULOSKELETAL: * No metabolically active disease. Public Information Officer: PSCArchana Transcribe Date/Time: Aug 14 2024 12:13P Dictated by : RICK BOLAND MD This examination was interpreted and the report reviewed and electronically signed by: RICK BOLAND MD on Aug 14 2024 12:56PM [facility] RADIOLOGY * * *Final Report* * * DATE OF EXAM: Aug 13 2024 1:08PM [facility] 0060 - [place] PET/CT SKULL-THIGH [...] * Uptake Time: 47 minutes * Radiopharmaceutical: Z59-Cjzcgggzlyjosowhup (FDG) COMPARISON: No previous FDG PET/CT available [...] changes. Soft Tissues: No radiotracer avid lesion. [facility] Provider, Jeremias Cruz - 08/14/2024 * * *Final Report* * * DATE OF EXAM: Aug 13 2024 1:08PM [facility] 0060 - NM PET/CT SKULL-THIGH [...] * Uptake Time: 47 minutes * Radiopharmaceutical: U07-Etemsgzaihvtvpbawl (FDG) COMPARISON: No previous FDG PET/CT available [...] cm. MUSCULOSKELETAL: * No metabolically active disease. 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 0060 - NM PET/CT SKULL-THIGH [...] * Uptake Time: 47 minutes * Radiopharmaceutical: G53-Figdcjkrsbggqldknc (FDG) COMPARISON: No previous FDG PET/CT available [...] cm. MUSCULOSKELETAL: * No metabolically active disease. 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 [facility] CT Chest WO contraston 07-25 IMPRESSION: [...] Code: CT_1 Recommendation: NM PET/MR WHOLE BODY ([id number]) Time Frame: At the discretion of the clinical team. COMMUNICATION: Results will be communicated with the ordering provider via [employer] staff message or phone message by [facility] [employer] [facility] within 2 business days of report finalization. --END OF FINDING-- Public Information Officer: MARC Transcribe Date/Time: Jul 25 2024 7:50A Dictated by : LELA SCHULZ MD This examination was interpreted and the report reviewed and electronically signed by: LELA SCHULZ MD on Jul 25 2024 3:53PM [facility] RADIOLOGY * * *Final Report* * * DATE OF EXAM: Jul 21 2024 12:08PM [facility] 0541 - CT CHEST WO IVCON / [...] left-sided hydronephrosis. Partially visualized left renal cyst. [facility] RADIOLOG[facility] Provider, [facility] 07/25/2024 * * *Final Report* * * DATE OF EXAM: Jul 21 2024 12:08PM [facility] 0541 - CT CHEST WO IVCON / [...] Code: CT_1 Recommendation: NM PET/MR WHOLE BODY ([id number]) Time Frame: At the discretion of the clinical team. COMMUNICATION: Results will be communicated with the ordering provider via [employer] staff message or phone message by [facility] within 2 business days of report finalization. --END OF FINDING-- Public Information Officer: PSCB Transcribe Date/Time: Jul 25 2024 7:50A Dictated by : LELA SCHULZ MD This examination was interpreted and the report reviewed and electronically signed by: LELA SCHULZ MD on Jul 25 2024 3:53PM [facility] CT CHEST WO IVCONon 07-21-20 CT CHEST WO IVCON * * *Final Report* * * DATE OF EXAM: Jul 21 2024 12:08PM [facility] [place] 0541 - CT CHEST WO IVCON / [...] Code: CT_1 Recommendation: NM PET/MR WHOLE BODY ([id number]) Time Frame: At the discretion of the clinical team. COMMUNICATION: Results will be communicated with the ordering provider via [employer] staff message or phone message by [facility] within 2 business days of report finalization. --END OF FINDING-- Public Information Officer: MARC Transcribe Date/Time: Jul 25 2024 7:50A Dictated by : LELA SCHULZ MD This examination was interpreted and the report reviewed and electronically signed by: LELA SCHULZ MD on Jul 25 2024 3:53PM EST [id number] ACTIONABLE Invalid Interpretation Code [facility] CT Chest WO contraston 07-21 Radiology Study observation (narrative) Onelia mera [facility] Basic metabolic 1998 panelon 07-20-2024 Anion gap [Moles/Vol] 4 mmol/L 3 - 13 mmol/L [place] Calcium [Mass/Vol] 9.1 mg/dL 8.4 - 10. 4 mg/dL [facility] Chloride [Moles/Vol] 103 mmol/L 98 - 10 7 mmol/L [facility] CO2 [Moles/Vol] 30 mmol/L 22 - 30 mmol/L [facility] Creatinine [Mass/Vol] 1.01 mg/dL 0.52 - 1.04 mg/dL [facility] GFR/1.73 sq M.predicted (S/P/Bld) [Vol rate/Area] 59.6 mL/min Low - PINF [facility] Comment on above: Calculation based on the Chronic Kidney Disease Epidemiology Collaboration (CKD-EPI) equation refit without adjustment for race Glucose [Mass/Vol] 191 mg/dL High 70 - 100 mg/dL [facility] Interpretation and review of laboratory results Abnormal [facility] Potassium [Moles/Vol] 5.2 mmol/L High 3.5 - 5.1 mmol/L [facility] Sodium [Moles/Vol] 137 mmol/L 135 - 145 mmol/L [facility] Urea nitrogen [Mass/Vol] 31 mg/dL High 7 - 17 mg/dL [facility] CBC W Auto Differential pane l (Bld)on 07-20-2024 Basophils (Bld) [#/Vol] 0 10*3/uL 0.0 - 0.2 10*3/uL [facility] Basophils/100 WBC (Bld) 0.5 % 0.0 - 2.0 % [facility] Eosinophils (Bld) [#/Vol] 0.1 10*3/uL 0.0 - 0.5 10*3/uL [facility] Eosinophils/100 WBC (Bld) 2.3 % 0.0 - 6.0 % [facility] Erythrocyte distribution width (RBC) [Ratio] 14.2 % 11.5 - 15.0 % [facility] Hematocrit (Bld) [Volume fraction] 32.9 % Low 35.0 - 47.0 % [facility] Hemoglobin (Bld) [Mass/Vol] 10.6 g/dL Low 11.7 - 16.0 g/dL [facility] Immature granulocytes (Bld) [#/Vol] 0 10*3/uL NINF - 0.1 10*3/uL [facility] Immature granulocytes/100 WBC (Bld) 0.2 % 0.0 - 2.0 % [facility] Interpretation and review of laboratory results Abnormal [facility] Lymphocytes (Bld) [#/Vol] 2.1 10*3/uL 1.0 - 4.3 10*3/uL [facility] Lymphocytes/100 WBC (Bld) 37 % 15.0 - 45.0 % [place] MCH (RBC) [Entitic mass] 30.7 pg 26. 0 - 34.0 pg [facility] MCHC (RBC) [Mass/Vol] 32.2 % 30.5 - 36.0 % [facility] MCV (RBC) [Entitic vol] 95.4 fL 77.0 - 99.0 fL [place] Monocytes (Bld) [#/Vol] 0.5 10*3/uL 0.0 - 0.9 10*3/uL [facility] Monocytes/100 WBC (Bld) 8.4 % 5.0 - 13.0 % [facility] Neutrophils (Bld) [#/Vol] 3 10*3/uL 1.8 - 7.5 10*3/uL [facility] Neutrophils/100 WBC (Bld) 51.6 % 38.0 - 82.0 % [facility] Nucleated RBC/100 WBC (Bld) [Ratio] 0 % [facility] Platelet mean volume (Bld) [Entitic vol] 10.7 fL 9.0 - 12.7 fL [facility] Comment on above: MPV is a calculated measurement using platelet volume ratio Platelets (Bld) [#/Vol] 172 10*3/uL 140 - 440 10*3/uL [place] RBC (Bld) [#/Vol] 3.45 10*6/uL Low 3.80 - 5.2 0 10*6/uL [place] WBC (Bld) [#/Vol] 5.7 10*3/uL 3.6 - 10.7 10*3/uL [facility] Activated partial thrombopla stin time (aPTT) in platelet poor plasma by coagulation aOrdered By: Luigi Tinoco on 07-17-2024 aPTT Coag (PPP) [Time] 23.6 s Low 24.1-36.2 [facility] normalized rat io (INR) calculationOrdered By: Luigi Tinoco on 07-17-2024 INR Coag (Bld) [Relative time] 1.0 {INR} [facility] Prothrombin timeOrdered By: Luigi Tinoco on 07-17-2024 PT Coag (PPP) [Time] 13.3 s 11.7-14.9 [facility] Vitamin B12 measurementOrder ed By: Luigi Tinoco on 07-17-2024 Cobalamin (Vitamin B12) [Mass/Vol] 1211 pg/mL High 211-911 [facility] aPTT Coag (PPP) [Time]Ordere d By: Luigi Tinoco on 07-17-2024 aPTT Coag (Bld) [Time] 23.6 s Low 24.1-36.2 [facility] XR Abdomen Single viewon 1. Nonobstructive bowel gas pattern, and findings suggestive of constipation. 2. Possible cholelithiasis. Report Dictated on Electronically Signed By: Laurent Kaba MD Electronically Signed Date/Time: 07/11/2024 7:14 PM EDT [facility] [facility] [employer] SYSTEM Patient Name: MANSI CARO : 1955 [...] diffuse degenerative change in the lumbar spine. [facility] Laurent Kaba MD - 07/11/2024 [...] Electronically Signed Date/Time: 07/11/2024 7:14 PM EDT [email or web address] XR Abdomen Single viewOrdere d By: Laurent Kaba on 07-11-2024 [place] Work Phone: XR Abdomen Single viewon Radiology Study observation (narrative) [facility] LABORATORYOrdered By: Cheli Kuo on 05-19-2024 Cholesterol [...] 05-19-2024 Cholesterol [Mass/Vol] 136 mg/dL Normal 0-200 [facility] ([place]) Comment on above: Result Comment: Chol esterol Reference Interval: Less than 200 Desirable 200-239 Borderline high risk 240 and above High risk Performed By: #### C RE, GFR #### [address] [address] Cholesterol in HDL [Mass/Vol] 42 mg/dL Normal 40-60 [facility] ([place]) Comment on above: Performed By: #### C RE, GFR #### [address] [address] Cholesterol in LDL [Mass/Vol] 69 mg/dL Normal 0-130 [facility] ([place]) Comment on above: Performed By: #### C RE, GFR #### [address] [address] Triglyceride [Mass/Vol] 123 mg/dL Normal 0-150 A [facility] ([place]) Comment on above: Result Comment: Trig lyceride Reference Interval: Less than 150 Normal 150-199 Borderline high risk 200-499 High risk 500 or higher Very high risk Performed By: #### C RE, GFR #### [address] [address] PBNPon 05-19-2024 Natriuretic peptide B (Bld) [Mass/Vol] 578 pg/mL High 0-125 [facility] ([place]) Comment on above: Result Comment: NT-p roBNP results of less than 300 pg/mL effectively rules out acute congestive heart failure with 99% negative predictive value. Performed By: #### C RE, GFR #### [address] [address] [address] ANGIOGRAPHY ABD AORTA + I LIOFEMORALon [...] flow FINDINGS: Note: Study is submitted to [place] for interpretation on April 24, 2024, 1:27 [...] 04/24/2024 1:31:15 PM Ordering Provider: ADRIENNE Bassett [facility] ([place]) .GFRon 04-07-2024 GFR 51 ml/min/1.73sqm Normal [facility] ([place]) Comment on above: Result Comment: GFR Population [...] Performed By: #### C RE, GFR #### [address] [address] GFR Non- 42 ml/min/1.73sqm Normal [facility] ([place]) Comment on above: Result Comment: GFR Population [...] Performed By: #### C RE, GFR #### [address] [address] CREon 04-07-2024 Creatinine [Mass/Vol] 1.25 mg/dL High 0.55-1.02 [facility] ([place]) Comment on above: Performed By: #### C RE, GFR #### [address] [address] Absolute lymphocyte countOrd ered By: Alonso Marte on 03-15-2024 Lymphocytes Auto (Unsp spec) [#/Vol] 3.07 10*3/uL 0.83-4.51 [facility] Automated lymphocyte count a s percentage of total leukocytesOrdered By: Alonso Marte on 03-15-2024 Lymphocytes/100 WBC Auto (Unsp spec) 51.0 % 19-41 [facility] Basophil percentageOrdered B y: Alonso Marte on 03-15-2024 Basophils/100 WBC (Bld) 0.7 % 0-1 [facility] Chloride [Moles/Vol] 107 mmol/L 98-107 [facility] Eosinophils/100 WBC (Bld) 1.0 % 0-5 [facility] Glucose [Mass/Vol] 122 mg/dL 74-106 [facility] Comment on above: Fasting Glucose resu lt from 100 to 125 mg/dL suggests IMPAIRED HOMEOSTASIS per A.D.A. criteria. Hemoglobin (Bld) [Mass/Vol] 11.3 g/dL 12.0-15.0 [facility] Monocytes/100 WBC (Bld) 8.8 % 0-10 [facility] Neutrophils (Bld) [#/Vol] 2.3 10*3/uL 2.0-7.7 [facility] Neutrophils/100 WBC (Bld) 38.2 % 47-70 [facility] Potassium [Moles/Vol] 4.5 mmol/L 3.5-5.1 [facility] Sodium [Moles/Vol] 139 mmol/L 136-145 [facility] WBC (Bld) [#/Vol] 6.0 10*3/uL 4.4-11.0 [facility] Determination of erythrocyte mean corpuscular volume (MCV)Ordered By: Alonso Marte on 03-15-2024 MCV (RBC) [Entitic vol] 96.5 fL 81-99 [facility] Erythrocyte distribution wid th ratioOrdered By: Alonso Marte on 03-15-2024 Erythrocyte distribution width (RBC) [Ratio] 14.6 % 11.6-14.6 [facility] Erythrocyte distribution wid th standard deviationOrdered By: Alonso Conteok on 03-15-2024 Erythrocyte distribution width (RBC) [Entitic vol] 52.5 fL 35.1-43.9 [facility] Hematocrit Auto (Bld) [Volum e fraction]Ordered By: Alonso Marte on 03-15-2024 Hematocrit (Bld) [Volume fraction] 35.9 % 37-47 [facility] Immature granulocytes/100 WB C Auto (Bld)Ordered By: Alonso Marte on 04-24-2024 Immature granulocytes/100 WBC (Bld) 0.300 % 0.0-0.9 [facility] Comment on above: IG% - Immature Granu locytes (promyelocytes, myelocytes and metamyelocytes) > 1% indicates that a LEFT SHIFT is Present. Laboratory - Chemistry and C hemistry - challengeOrdered By: Alonso Marte on 03-15-2024 CO2 [Moles/Vol] 28.0 mmol/L 21.0-32.0 [facility] Urea nitrogen/Creatinine [Mass ratio] 23.8 mg/mg 10-20 [facility] Laboratory - Hematology and Cell countsOrdered By: Alonso Marte on 03-15-2024 MCH (RBC) [Entitic mass] 30.4 pg 27.0-32.0 [facility] MCHC (RBC) [Mass/Vol] 31.5 g/dL 32- [facility] Nucleated RBC/100 WBC (Bld) [Ratio] 0 % 0-5 [facility] Platelet mean volume (Bld) [Entitic vol] 11.2 fL 6.2-12.0 [facility] Platelets (Bld) [#/Vol] 206 10*3/uL 150-450 [facility] No Panel InformationOrdered By: Alonso Marte on 03-15-2024 Estimated Creatinine Clearance Calc 45.89 ml/min [facility] Estimated GFR (MDRD) Amer 66 mL/min >60 [facility] Comment on above: GFR Calc Estimated GFR (MDRD) Non-Af Amer 55 mL/min >60 [facility] Comment on above: Non- GFR Calc RBC Auto (Bld) [#/Vol]Ordere d By: Alonso Marte on 03-15-2024 RBC (Bld) [#/Vol] 3.72 10*6/uL 4.2-5.4 ost er [facility] Serum or plasma calcium loco urement (mass/volume)Ordered By: Alonso Marte on 03-15-2024 Calcium [Mass/Vol] 9.3 mg/dL 8.5-10.1 [facility] Serum or plasma creatinine m easurement (mass/volume)Ordered By: Alonso Marte on 03-15-2024 Creatinine [Mass/Vol] 1.05 mg/dL 0.55-1.02 [facility] Comment on above: The validity of the calculated GFR & GFRAA in patients over 70 years has not been determined. Clinical correlation is essential. Serum or plasma urea nitroge n measurement (mass/volume)Ordered By: Alonso Marte on 03-15-2024 Urea nitrogen [Mass/Vol] 25 mg/dL 7-18 [facility] Thin prep Papanicolaou smear with manual screeningOrdered By: Alonso Marte on 03-15-2024 Thin prep Papanicolaou smear with manual screening 116 mg/dL 74-106 [facility] Comment on above: MANAGEMENT OF PATIEN T CARE PER NURSING PROTOCOL Thin prep Papanicolaou smear with manual screening 4 5-15 [facility] No Panel InformationOrdered By: Alonso Marte on 03-02-2024 Vitamin D 25-Hydroxy 54.2 ng/mL [facility] Comment on above: Vitamin D 25(OH) Sta tus Range Deficiency <20 ng/mL (50nmol/L) Insufficiency 20 - 30 ng/mL (50 - 75 nmol/L) Sufficiency 30 - 100 ng/mL (75 - 250 nmol/L) Toxicity >100 ng/mL (>250 nmol/L) Absolute lymphocyte countOrd ered By: Heike Horta on 02-29-2024 Lymphocytes Auto (Unsp spec) [#/Vol] 1.82 10*3/uL 0.83-4.51 [facility] Automated lymphocyte count a s percentage of total leukocytesOrdered By: Heike Horta on 02-29-2024 Lymphocytes/100 WBC Auto (Unsp spec) 43.5 % 19-41 [facility] Basophil percentageOrdered B y: Heike Horta on 02-29-2024 Basophils/100 WBC (Bld) 0.5 % 0-1 [facility] Chloride [Moles/Vol] 115 mmol/L 98-107 [facility] Eosinophils/100 WBC (Bld) 3.3 % 0-5 [facility] Glucose [Mass/Vol] 119 mg/dL 74-106 [facility] Comment on above: Fasting Glucose resu lt from 100 to 125 mg/dL suggests IMPAIRED HOMEOSTASIS per A.D.A. criteria. Hemoglobin (Bld) [Mass/Vol] 8.8 g/dL 12.0-15.0 [facility] Monocytes/100 WBC (Bld) 10.0 % 0-10 [facility] Neutrophils (Bld) [#/Vol] 1.8 10*3/uL 2.0-7.7 [facility] Neutrophils/100 WBC (Bld) 42.5 % 47-70 [facility] Potassium [Moles/Vol] 3.3 mmol/L 3.5-5.1 [facility] Sodium [Moles/Vol] 144 mmol/L 136-145 [facility] WBC (Bld) [#/Vol] 4.2 10*3/uL 4.4-11.0 [facility] Blood manual differential co mment interpretation (narrative result)Ordered By: Heike Horta on 02-29-2024 Manual differential comment Jake (Bld) [Interp] SCANNED [facility] Determination of erythrocyte mean corpuscular volume (MCV)Ordered By: Heike Horta on 02-29-2024 MCV (RBC) [Entitic vol] 92.3 fL 81-99 [facility] Erythrocyte distribution wid th ratioOrdered By: Heike Horta on 02-29-2024 Erythrocyte distribution width (RBC) [Ratio] 14.3 % 11.6-14.6 [facility] Erythrocyte distribution wid th standard deviationOrdered By: Heike Horta on 02-29-2024 Erythrocyte distribution width (RBC) [Entitic vol] 48.5 fL 35.1-43.9 [facility] Hematocrit Auto (Bld) [Volum e fraction]Ordered By: Heike Horta on 02-29-2024 Hematocrit (Bld) [Volume fraction] 27.4 % 37-47 [facility] Immature granulocytes/100 WB C Auto (Bld)Ordered By: Heike Horta on 02-29-2024 Immature granulocytes/100 WBC (Bld) 0.200 % 0.0-0.9 [facility] Comment on above: IG% - Immature Granu locytes (promyelocytes, myelocytes and metamyelocytes) > 1% indicates that a LEFT SHIFT is Present. Laboratory - Chemistry and C hemistry - challengeOrdered By: Heike Horta on 02-29-2024 CO2 [Moles/Vol] 23.0 mmol/L 21.0-32.0 [facility] Urea nitrogen/Creatinine [Mass ratio] 5.5 mg/mg 10-20 [facility] Laboratory - Chemistry and C hemistry - challengeOrdered By: Ganesh Kiran on 02-29-2024 Magnesium [Mass/Vol] 1.6 mg/dL 1.6-2.6 [facility] Laboratory - Hematology and Cell countsOrdered By: Heike Horta on 02-29-2024 MCH (RBC) [Entitic mass] 29.6 pg 27.0-32.0 [facility] MCHC (RBC) [Mass/Vol] 32.1 g/dL 32-36 [facility] Nucleated RBC/100 WBC (Bld) [Ratio] 0 % 0-5 [facility] Platelet mean volume (Bld) [Entitic vol] 10.6 fL 6.2-12.0 [facility] Platelets (Bld) [#/Vol] 199 10*3/uL 150-450 [facility] No Panel InformationOrdered By: Heike Horta on 02-29-2024 Estimated Creatinine Clearance Calc 59.58 ml/min [facility] Estimated GFR (MDRD) Amer 102 mL/min >60 [facility] Comment on above: GFR Calc Estimated GFR (MDRD) Non-Af Amer 85 mL/min >60 [facility] Comment on above: Non- GFR Calc RBC Auto (Bld) [#/Vol]Ordere d By: Heike Horta on 02-29-2024 RBC (Bld) [#/Vol] 2.97 10*6/uL 4.2-5.4 [facility] Serum or plasma calcium loco urement (mass/volume)Ordered By: Heike Horta on 02-29-2024 Calcium [Mass/Vol] 7.6 mg/dL 8.5-10.1 [facility] Serum or plasma creatinine m easurement (mass/volume)Ordered By: Heike Horta on 02-29-2024 Creatinine [Mass/Vol] 0.72 mg/dL 0.55-1.02 [facility] Comment on above: The validity of the calculated GFR & GFRAA in patients over 70 years has not been determined. Clinical correlation is essential. Serum or plasma urea nitroge n measurement (mass/volume)Ordered By: Heike Horta on 02-29-2024 Urea nitrogen [Mass/Vol] 4 mg/dL 7-18 [facility] Thin prep Papanicolaou smear with manual screeningOrdered By: Heike Horta on 02-29-2024 Thin prep Papanicolaou smear with manual screening 6 5-15 [facility] Basophil percentageOrdered B y: Ganesh Kiran on 02-28-2024 Basophil percentage 2.0 mg/dL 2.5-4.9 [facility] Serum or plasma trough vanco mycin levelOrdered By: Heike Horta on 02-27-2024 Vancomycin trough [Mass/Vol] 13.3 ug/mL 5.0-15.0 [facility] Comment on above: VANCOMYCIN STANDARED DRUG THERAPY TROUGH LEVEL: 5.0 - 15.0 mg/L VANCOMYCIN HIGH INTENSITY THERAPY TROUGH LEVEL: 15.0 - 20.0 mg/L High Intensity therapy recommended for serious lifethreatening infections include:- Gspsuatrbo-Doqtludcxvsm-Uvejuccgj (Ventilator/Healtcare Associated)-Sepsis PLEASE CONTACT PHARMACY SERVICES (#[id number]) FOR INTERPRETATIONOF RESULTS. Culture, urineOrdered By: Allison Greco on 02-26-2024 Bacteria identified Cx Nom (U) Culture exhibits no growth. [facility] Basophil percentageOrdered B y: Heike Horta on 02-25-2024 Basophil percentage 0 SEEN /hpf 0-5 [facility] Bilirubin Test strip Ql (U)O rdered By: Heike Horta on 02-25-2024 Bilirubin Ql (U) Negative Negative [facility] Ketones Test strip Ql (U)Ord ered By: Heike Horta on 02-25-2024 Ketones Ql (U) 5 mg/dl Negative [facility] Laboratory - Microbiology an d Antimicrobial susceptibilityOrdered By: Heike Horta on 02-25-2024 Bacteria identified Cx Nom (Bld) No growth in 5 days. [facility] Mucus LM Ql (Urine sed)Order ed By: Heike Horta on 02-25-2024 Mucus Ql (Urine sed) 0 SEEN /hpf [facility] Nitrite Test strip Ql (U)Ord ered By: Heike Horta on 02-25-2024 Nitrite Ql (U) Negative Negative [facility] No Panel InformationOrdered By: Heike Horta on 02-25-2024 Urine RBC 0 SEEN /hpf 0-5 [facility] Protein Test strip Ql (U)Ord ered By: Heike Horta on 02-25-2024 Protein Ql (U) 15 mg/dl Negative [facility] Squamous epithelial cells de tection in urine sediment by light microscopyOrdered By: Heike Horta on 02-25-2024 Epithelial cells.squamous LM Ql (Urine sed) 0 SEEN /hpf 5-10 [facility] Urine blood detectionOrdered By: Heike Horta on 02-25-2024 RBC Ql (U) Negative Negative [facility] Urine clarityOrdered By: Selina Horta on 02-25-2024 Clarity (U) Clear Clear [facility] Urine color determinationOrd ered By: Heike Horta on 02-25-2024 Color (U) Yellow Yellow [facility] Urine glucose detectionOrder ed By: Heike Horta on 02-25-2024 Glucose Ql (U) 1000 mg/dl Normal [facility] Urine leukocyte esterase det ection by dipstickOrdered By: Heike Horta on 02-25-2024 Leukocyte esterase Test strip Ql (U) Negative Negative [facility] Urine pHOrdered By: Heike Singh am on 02-25-2024 pH (U) 5.0 [pH] 5.0 - 8.0 [facility] Urine sediment bacteria coun t by microscopy (number/high power field)Ordered By: Heike Horta on 02-25-2024 Bacteria LM.HPF (Urine sed) [#/Area] 0 /[HPF] None Seen [facility] Urine specific gravity measu rementOrdered By: Heike Horta on 02-25-2024 Specific gravity (U) [Rel density] 1.020 1.002-1.030 [facility] Urine urobilinogen measureme ntOrdered By: Heike Horta on 02-25-2024 Urobilinogen Ql (U) Normal mg/dl Normal [facility] Thin prep Papanicolaou smear with manual screeningOrdered By: Heike Horta on 02-22-2024 Thin prep Papanicolaou smear with manual screening 183 mg/dL 74-106 [facility] Comment on above: MANAGEMENT OF PATIEN T CARE PER NURSING PROTOCOL Whole blood hemoglobin A1c/t otal hemoglobin ratio (mass fraction)Ordered By: Jose Sahni on 02-22-2024 HbA1c (Bld) [Mass fraction] 7.0 % 3.8-5.6 [facility] Comment on above: Normal < 5.7 % Predi abetic 5.7 - 6.4 % Diabetic >or= 6.5 % Please note range changes. Absolute lymphocyte countOrd ered By: Jose Jaime on 02-21-2024 Lymphocytes Auto (Unsp spec) [#/Vol] 1.08 10*3/uL 0.83-4.51 [facility] Activated partial thrombopla stin time (aPTT) in platelet poor plasma by coagulation aOrdered By: Jose Jaime on 02-21-2024 aPTT Coag (PPP) [Time] 24.8 s 24.1-36.2 [facility] Automated lymphocyte count a s percentage of total leukocytesOrdered By: Jose Jaime on 02-21-2024 Lymphocytes/100 WBC Auto (Unsp spec) 5.3 % 19-41 [facility] Basophil percentageOrdered B y: Jose Jaime on 02-21-2024 Lactate [Moles/Vol] 1.5 mmol/L 0.4-2.0 [facility] Basophil percentage 0-5 SEEN /hpf 0-5 [facility] Basophils/100 WBC (Bld) 0.1 % 0-1 [facility] Bilirubin [Mass/Vol] 0.60 mg/dL 0.20-1.00 [facility] Comment on above: For patients on eltr ombopag therapy, use of Dimension Wright TBIL is not recommended. Chloride [Moles/Vol] 100 mmol/L 98-107 [facility] Eosinophils/100 WBC (Bld) 0.0 % 0-5 [facility] Glucose [Mass/Vol] 241 mg/dL 74-106 [facility] Comment on above: Glucose result great er than or equal to 200 mg/dLsuggests DIABETES MELLITUS per A.D.A. criteria. Hemoglobin (Bld) [Mass/Vol] 12.2 g/dL 12.0-15.0 [facility] Monocytes/100 WBC (Bld) 5.5 % 0-10 [facility] Neutrophils (Bld) [#/Vol] 18.1 10*3/uL 2.0-7.7 [facility] Neutrophils/100 WBC (Bld) 88.4 % 47-70 [facility] Potassium [Moles/Vol] 4.6 mmol/L 3.5-5.1 [facility] Protein [Mass/Vol] 7.8 g/dL 6.4-8.2 [facility] Sodium [Moles/Vol] 137 mmol/L 136-145 [facility] WBC (Bld) [#/Vol] 20.5 10*3/uL 4.4-11.0 [facility] Bilirubin Test strip Ql (U)O rdered By: Jose Jaime on 02-21-2024 Bilirubin Ql (U) 1 mg/dL Negative [facility] Comment on above: COLOR OF URINE MAY A FFECT DIPSTICK RESULTS. Determination of erythrocyte mean corpuscular volume (MCV)Ordered By: Jose Jaime on 02-21-2024 MCV (RBC) [Entitic vol] 91.5 fL 81-99 [facility] Erythrocyte distribution wid th ratioOrdered By: Jose Jaime on 02-21-2024 Erythrocyte distribution width (RBC) [Ratio] 13.3 % 11.6-14.6 [facility] Erythrocyte distribution wid th standard deviationOrdered By: Jose Jaime on 02-21-2024 Erythrocyte distribution width (RBC) [Entitic vol] 45.0 fL 35.1-43.9 [facility] Hematocrit Auto (Bld) [Volum e fraction]Ordered By: Jose Jaime on 02-21-2024 Hematocrit (Bld) [Volume fraction] 36.4 % 37-47 [facility] Immature granulocytes/100 WB C Auto (Bld)Ordered By: Jose Jaime on 02-21-2024 Immature granulocytes/100 WBC (Bld) 0.700 % 0.0-0.9 [facility] Comment on above: IG% - Immature Granu locytes (promyelocytes, myelocytes and metamyelocytes) > 1% indicates that a LEFT SHIFT is Present. Ketones Test strip Ql (U)Ord ered By: Jose Jaime on 04-01-2024 Ketones Ql (U) 5 mg/dl Negative [facility] Laboratory - Chemistry and C hemistry - challengeOrdered By: Jose Jaime on 02-21-2024 Albumin/Globulin [Mass ratio] 0.9 {ratio} 0.9-2.4 [facility] ALP [Catalytic activity/Vol] 58 U/L 45-117 [facility] ALT [Catalytic activity/Vol] 28 U/L 13-56 [facility] CO2 [Moles/Vol] 24.0 mmol/L 21.0-32.0 [facility] Globulin (S) [Mass/Vol] 4.1 g/dL 2.2-4.2 [facility] Lipase [Catalytic activity/Vol] 18 U/L 13-75 [facility] Comment on above: Please note:LIPASE r evised reference range effective 23. New Lipase methodology. Expected to produce lower values than the previous assay method. NEW Reference Range: 13 - 75 U/L Urea nitrogen/Creatinine [Mass ratio] 14.9 mg/mg 10-20 [facility] Laboratory - CoagulationOrde red By: Jose Jaime on 02-21-2024 INR Coag (Bld) [Relative time] 1.2 {INR} [facility] PT Coag (PPP) [Time] 15.1 s 11.7-14.9 [facility] Laboratory - Hematology and Cell countsOrdered By: Jose Jaime on 02-21-2024 MCH (RBC) [Entitic mass] 30.7 pg 27.0-32.0 [facility] MCHC (RBC) [Mass/Vol] 33.5 g/dL 32-36 [facility] Nucleated RBC/100 WBC (Bld) [Ratio] 0 % 0-5 [facility] Platelet mean volume (Bld) [Entitic vol] 11.3 fL 6.2-12.0 [facility] Platelets (Bld) [#/Vol] 198 10*3/uL 150-450 [facility] Lower GI hemoglobin IA Ql (S tl)Ordered By: Jose Jaime on 02-21-2024 Stool Occult Blood (EDUARDO) Positive [facility] Mucus LM Ql (Urine sed)Order ed By: Jose Jaime on 02-21-2024 Mucus Ql (Urine sed) 0 SEEN /hpf [facility] Nitrite Test strip Ql (U)Ord ered By: Jose Jaime on 02-21-2024 Nitrite Ql (U) Negative Negative [facility] No Panel InformationOrdered By: Jose Jaime on 02-21-2024 Urine RBC 0-5 SEEN /hpf 0-5 [facility] Estimated GFR (MDRD) Amer 30 mL/min >60 [facility] Comment on above: GFR Calc Estimated GFR (MDRD) Non-Af Amer 25 mL/min >60 [facility] Comment on above: Non- GFR Calc Protein Test strip Ql (U)Ord ered By: Jose Jaime on 02-21-2024 Protein Ql (U) 15 mg/dl Negative [facility] RBC Auto (Bld) [#/Vol]Ordere d By: Jose Jaime on 02-21-2024 RBC (Bld) [#/Vol] 3.98 10*6/uL 4.2-5.4 [facility] Serum or plasma calcium loco urement (mass/volume)Ordered By: Jose Jaime on 02-21-2024 Calcium [Mass/Vol] 9.4 mg/dL 8.5-10.1 [facility] Serum or plasma creatinine m easurement (mass/volume)Ordered By: Jose Jaime on 02-21-2024 Creatinine [Mass/Vol] 2.08 mg/dL 0.55-1.02 [facility] Comment on above: The validity of the calculated GFR & GFRAA in patients over 70 years has not been determined. Clinical correlation is essential. Serum or plasma urea nitroge n measurement (mass/volume)Ordered By: Jose Jaime on 02-21-2024 Urea nitrogen [Mass/Vol] 31 mg/dL 7-18 [facility] Squamous epithelial cells de tection in urine sediment by light microscopyOrdered By: Jose Jaime on 02-21-2024 Epithelial cells.squamous LM Ql (Urine sed) 0-5 SEEN /hpf 5-10 [facility] Stool enteric pathogen panel by probe and target amplification methodOrdered By: Dannie Hoyos on 02-21-2024 Gastrointestinal pathogens panel ENRIQUE+probe (Stl) [facility] Thin prep Papanicolaou smear with manual screeningOrdered By: Jose Jaime on 02-21-2024 Thin prep Papanicolaou smear with manual screening 3.7 g/dL 3.2-5.0 [facility] Thin prep Papanicolaou smear with manual screening 35 U/L 15-37 [facility] Thin prep Papanicolaou smear with manual screening 13 5-15 [facility] Urine blood detectionOrdered By: Jose Jaime on 02-21-2024 RBC Ql (U) 10 /ul Negative [facility] Urine clarityOrdered By: Ava Jaime on 02-21-2024 Clarity (U) Clear Clear [facility] Urine color determinationOrd ered By: Jose Jaime on 02-21-2024 Color (U) Yellow Yellow [facility] Urine glucose detectionOrder ed By: Jose Jaime on 02-21-2024 Glucose Ql (U) 1000 mg/dl Normal [facility] Urine leukocyte esterase det ection by dipstickOrdered By: Jose Jaime on 02-21-2024 Leukocyte esterase Test strip Ql (U) 25 /ul Negative [facility] Urine pHOrdered By: Jose navarrete on 02-21-2024 pH (U) 5.0 [pH] 5.0 - 8.0 [facility] Urine sediment bacteria coun t by microscopy (number/high power field)Ordered By: Jose Jaime on 02-21-2024 Bacteria LM.HPF (Urine sed) [#/Area] 0 /[HPF] None Seen [facility] Urine specific gravity measu rementOrdered By: Jose Jaime on 02-21-2024 Specific gravity (U) [Rel density] 1.015 1.002-1.030 [facility] Urine urobilinogen measureme ntOrdered By: Jose Jaime on 02-21-2024 Urobilinogen Ql (U) 1 mg/dl Normal [facility] Absolute lymphocyte countOrd ered By: Breann East on 02-19-2024 Lymphocytes Auto (Unsp spec) [#/Vol] 2.61 10*3/uL 0.83-4.51 [facility] Automated lymphocyte count a s percentage of total leukocytesOrdered By: Breann East on 02-19-2024 Lymphocytes/100 WBC Auto (Unsp spec) 33.5 % 19-41 [facility] Basophil percentageOrdered B y: Breann East on 02-19-2024 Basophils/100 WBC (Bld) 0.5 % 0-1 [facility] Bilirubin [Mass/Vol] 0.30 mg/dL 0.20-1.00 [facility] Comment on above: For patients on eltr ombopag therapy, use of Dimension Wright TBIL is not recommended. Chloride [Moles/Vol] 107 mmol/L 98-107 [facility] Eosinophils/100 WBC (Bld) 1.8 % 0-5 [facility] Glucose [Mass/Vol] 133 mg/dL 74-106 [facility] Comment on above: Fasting Glucose resu lt greater than or equal to 126 mg/dL suggests DIABETES MELLITUS per A.D.A. criteria. Hemoglobin (Bld) [Mass/Vol] 11.9 g/dL 12.0-15.0 [facility] Monocytes/100 WBC (Bld) 7.3 % 0-10 [facility] Neutrophils (Bld) [#/Vol] 4.4 10*3/uL 2.0-7.7 [facility] Neutrophils/100 WBC (Bld) 56.6 % 47-70 [facility] Potassium [Moles/Vol] 4.6 mmol/L 3.5-5.1 [facility] Protein [Mass/Vol] 7.6 g/dL 6.4-8.2 [facility] Sodium [Moles/Vol] 139 mmol/L 136-145 [facility] WBC (Bld) [#/Vol] 7.8 10*3/uL 4.4-11.0 [facility] Basophil percentage 0 SEEN /hpf 0-5 [facility] Bilirubin Test strip Ql (U)O rdered By: Breann East on 02-19-2024 Bilirubin Ql (U) Negative Negative [facility] Determination of erythrocyte mean corpuscular volume (MCV)Ordered By: Breann East on 02-19-2024 MCV (RBC) [Entitic vol] 93.8 fL 81-99 [facility] Erythrocyte distribution wid th ratioOrdered By: Breann East on 02-19-2024 Erythrocyte distribution width (RBC) [Ratio] 13.2 % 11.6-14.6 [facility] Erythrocyte distribution wid th standard deviationOrdered By: Breann East on 02-19-2024 Erythrocyte distribution width (RBC) [Entitic vol] 45.7 fL 35.1-43.9 [facility] Hematocrit Auto (Bld) [Volum e fraction]Ordered By: Breann East on 02-19-2024 Hematocrit (Bld) [Volume fraction] 36.6 % 37-47 [facility] Immature granulocytes/100 WB C Auto (Bld)Ordered By: Breann East on 02-19-2024 Immature granulocytes/100 WBC (Bld) 0.300 % 0.0-0.9 [facility] Comment on above: IG% - Immature Granu locytes (promyelocytes, myelocytes and metamyelocytes) > 1% indicates that a LEFT SHIFT is Present. Ketones Test strip Ql (U)Ord ered By: Breann East on 02-19-2024 Ketones Ql (U) Negative Negative [facility] Laboratory - Chemistry and C hemistry - challengeOrdered By: Breann East on 02-19-2024 Albumin/Globulin [Mass ratio] 0.9 {ratio} 0.9-2.4 [facility] ALP [Catalytic activity/Vol] 58 U/L 45-117 [facility] ALT [Catalytic activity/Vol] 20 U/L 13-56 [facility] CO2 [Moles/Vol] 29.0 mmol/L 21.0-32.0 [facility] Globulin (S) [Mass/Vol] 3.9 g/dL 2.2-4.2 [facility] Urea nitrogen/Creatinine [Mass ratio] 21.1 mg/mg 10-20 [facility] Laboratory - Hematology and Cell countsOrdered By: Breann East on 02-19-2024 MCH (RBC) [Entitic mass] 30.5 pg 27.0-32.0 [facility] MCHC (RBC) [Mass/Vol] 32.5 g/dL 32-36 [facility] Nucleated RBC/100 WBC (Bld) [Ratio] 0 % 0-5 [facility] Platelet mean volume (Bld) [Entitic vol] 11.0 fL 6.2-12.0 [facility] Platelets (Bld) [#/Vol] 172 10*3/uL 150-450 [facility] Mucus LM Ql (Urine sed)Order ed By: Breann East on 02-19-2024 Mucus Ql (Urine sed) 0 SEEN /hpf [facility] Nitrite Test strip Ql (U)Ord ered By: Breann East on 02-19-2024 Nitrite Ql (U) Negative Negative [facility] No Panel InformationOrdered By: Breann East on 02-19-2024 Estimated Creatinine Clearance Calc 36.28 ml/min [facility] Estimated GFR (MDRD) Amer 51 mL/min >60 [facility] Comment on above: GFR Calc Estimated GFR (MDRD) Non-Af Amer 42 mL/min >60 [facility] Comment on above: Non- GFR Calc Urine RBC 0 SEEN /hpf 0-5 [facility] Protein Test strip Ql (U)Ord ered By: Breann East on 02-19-2024 Protein Ql (U) Negative Negative [facility] RBC Auto (Bld) [#/Vol]Ordere d By: Breann East on 02-19-2024 RBC (Bld) [#/Vol] 3.90 10*6/uL 4.2-5.4 [facility] Serum or plasma calcium loco urement (mass/volume)Ordered By: Breann East on 02-19-2024 Calcium [Mass/Vol] 9.3 mg/dL 8.5-10.1 [facility] Serum or plasma creatinine m easurement (mass/volume)Ordered By: Breann East on 02-19-2024 Creatinine [Mass/Vol] 1.33 mg/dL 0.55-1.02 [facility] Comment on above: The validity of the calculated GFR & GFRAA in patients over 70 years has not been determined. Clinical correlation is essential. Serum or plasma urea nitroge n measurement (mass/volume)Ordered By: Breann East on 02-19-2024 Urea nitrogen [Mass/Vol] 28 mg/dL 7-18 [facility] Squamous epithelial cells de tection in urine sediment by light microscopyOrdered By: Breann East on 02-19-2024 Epithelial cells.squamous LM Ql (Urine sed) 0 SEEN /hpf 5-10 [facility] Thin prep Papanicolaou smear with manual screeningOrdered By: Breann East on 02-19-2024 Thin prep Papanicolaou smear with manual screening 3.7 g/dL 3.2-5.0 [facility] Thin prep Papanicolaou smear with manual screening 23 U/L 15-37 [facility] Thin prep Papanicolaou smear with manual screening 3 5-15 [facility] Urine blood detectionOrdered By: Breann East on 02-19-2024 RBC Ql (U) Negative Negative [facility] Urine clarityOrdered By: Chaz East on 02-19-2024 Clarity (U) Clear Clear [facility] Urine color determinationOrd ered By: Breann East on 02-19-2024 Color (U) Yellow Yellow [facility] Urine glucose detectionOrder ed By: Breann East on 02-19-2024 Glucose Ql (U) 1000 mg/dl Normal [facility] Urine leukocyte esterase det ection by dipstickOrdered By: Breann East on 02-19-2024 Leukocyte esterase Test strip Ql (U) 25 /ul Negative [facility] Urine pHOrdered By: Niurka East on 02-19-2024 pH (U) 6.0 [pH] 5.0 - 8.0 [facility] Urine sediment bacteria coun t by microscopy (number/high power field)Ordered By: Breann East on 02-19-2024 Bacteria LM.HPF (Urine sed) [#/Area] 0 /[HPF] None Seen [facility] Urine specific gravity measu rementOrdered By: Breann East on 02-19-2024 Specific gravity (U) [Rel density] 1.015 1.002-1.030 [facility] Urine urobilinogen measureme ntOrdered By: Breann East on 02-19-2024 Urobilinogen Ql (U) Normal mg/dl Normal [facility] .Auto Diffon 02-14-2024 Basophil, Absolute 0.0 10 3/mcL Normal 0.0-0.2 [facility] ([place]) Comment on above: Performed By: #### L IPID, FERR, GFR, ANEU, CBC, TSH, CMP, ADIFF, A1C, VIDH #### [address] [address] Basophils/100 WBC (Bld) 0.5 % Normal 0.0-2.5 [facility] ([place]) Comment on above: Performed By: #### L IPID, FERR, GFR, ANEU, CBC, TSH, CMP, ADIFF, A1C, VIDH #### [address] [address] Eosinophil, Absolute 0.2 10 3/mcL Normal 0.0-0.4 [facility] ([place]) Comment on above: Performed By: #### L IPID, FERR, GFR, ANEU, CBC, TSH, CMP, ADIFF, A1C, VIDH #### [address] [address] Eosinophils/100 WBC (Bld) 2.5 % Normal 0.0-7.0 [facility] ([place]) Comment on above: Performed By: #### L IPID, FERR, GFR, ANEU, CBC, TSH, CMP, ADIFF, A1C, VIDH #### [address] [address] Lymphocyte, Absolute 2.4 10 3/mcL Normal 0.8-3.9 [facility] ([place] Comment on above: Performed By: #### L IPID, FERR, GFR, ANEU, CBC, TSH, CMP, ADIFF, A1C, VIDH #### [address] [address] Lymphocytes/100 WBC (Bld) 30.7 % Normal 10.0-50.0 [facility] ([place] Comment on above: Performed By: #### L IPID, FERR, GFR, ANEU, CBC, TSH, CMP, ADIFF, A1C, VIDH #### [address] [address] Monocyte, Absolute 0.5 10 3/mcL Normal 0.2-1.0 [facility] ([place] Comment on above: Performed By: #### L IPID, FERR, GFR, ANEU, CBC, TSH, CMP, ADIFF, A1C, VIDH #### [address] [address] Monocytes/100 WBC (Bld) 6.7 % Normal 1.7-13.0 [facility] ([place]) Comment on above: Performed By: #### L IPID, FERR, GFR, ANEU, CBC, TSH, CMP, ADIFF, A1C, VIDH #### Katie [address] [address] Neutrophils/100 WBC (Bld) 59.6 % Normal 37.0-80.0 [facility] ([place] Comment on above: Performed By: #### L IPID, FERR, GFR, ANEU, CBC, TSH, CMP, ADIFF, A1C, VIDH #### [address] [address] .GFRon 02-14-2024 GFR 51 ml/min/1.73sqm Normal [facility] ([place] Comment on above: Result Comment: GFR Population [...] ANEU, CBC, TSH, CMP, ADIFF, A1C, VIDH ####[address] [address] GFR Non- 42 ml/min/1.73sqm Normal [facility] ([place]) Comment on above: Result Comment: GFR Population [...] ANEU, CBC, TSH, CMP, ADIFF, A1C, VIDH ####[address] [address] .NEUABSon 02-14-2024 Neutrophil, Absolute 4.6 10 3/mcL Normal 2.9-6.2 [facility] ([place] Comment on above: Performed By: #### L IPID, FERR, GFR, ANEU, CBC, TSH, CMP, ADIFF, A1C, VIDH #### [address] [address] A1Con 02-14-2024 HbA1c (Bld) [Mass fraction] 7.2 % High 4.3-6.4 [facility] ([place] Comment on above: Performed By: #### L IPID, FERR, GFR, ANEU, CBC, TSH, CMP, ADIFF, A1C, VIDH #### [address] [address] CBCon 02-14-2024 Erythrocyte distribution width (RBC) [Ratio] 13.9 % Normal 11.5-14.5 [facility] ([place]) Comment on above: Performed By: #### L IPID, FERR, GFR, ANEU, CBC, TSH, CMP, ADIFF, A1C, VIDH #### [address] [address] Hematocrit (Bld) [Volume fraction] 34.7 % Low 37.0-47.0 [facility] ([place] Comment on above: Performed By: #### L IPID, FERR, GFR, ANEU, CBC, TSH, CMP, ADIFF, A1C, VIDH #### [place] [address] Hgb 11.9 G/dL Low 12.0-16.0 [facility] ([place] Comment on above: Performed By: #### L IPID, FERR, GFR, ANEU, CBC, TSH, CMP, ADIFF, A1C, VIDH #### [place] [address] MCH (RBC) [Entitic mass] 30.8 pg Normal 27.0-31.2 [facility] ([place] Comment on above: Performed By: #### L IPID, FERR, GFR, ANEU, CBC, TSH, CMP, ADIFF, A1C, VIDH #### [place] [address] MCHC 34.4 G/dL Normal 33.0-37.0 [facility] ([place] Comment on above: Performed By: #### L IPID, FERR, GFR, ANEU, CBC, TSH, CMP, ADIFF, A1C, VIDH #### [place] [address] MCV (RBC) [Entitic vol] 89.7 fL Normal 80.0-94.0 A [facility] ([place]) Comment on above: Performed By: #### L IPID, FERR, GFR, ANEU, CBC, TSH, CMP, ADIFF, A1C, VIDH #### [place] [address] Platelet 154 10 3/mcL Normal 130-400 [facility] ([place]) Comment on above: Performed By: #### L IPID, FERR, GFR, ANEU, CBC, TSH, CMP, ADIFF, A1C, VIDH #### [place] [address] Platelet mean volume (Bld) [Entitic vol] 9.1 fL Normal 7.4-10.4 [facility] ([place] Comment on above: Performed By: #### L IPID, FERR, GFR, ANEU, CBC, TSH, CMP, ADIFF, A1C, VIDH #### [address] [address] RBC 3.87 10 6/mcL Low 4.20-5.40 [facility] ([place] Comment on above: Performed By: #### L IPID, FERR, GFR, ANEU, CBC, TSH, CMP, ADIFF, A1C, VIDH #### Katie [address] [address] WBC 7.8 10 3/mcL Normal 4.6-10.8 [facility] ([place] Comment on above: Performed By: #### L IPID, FERR, GFR, ANEU, CBC, TSH, CMP, ADIFF, A1C, VIDH #### Katie [address] [address] CMPon 02-14-2024 Albumin Level 3.7 G/dL Normal 3.4-4.8 [facility] ([place] Comment on above: Performed By: #### L IPID, FERR, GFR, ANEU, CBC, TSH, CMP, ADIFF, A1C, VIDH ####K[address] [address] Albumin/Globulin [Mass ratio] 1.1 {ratio} Normal 1.1-2.5 [facility] ([place] Comment on above: Performed By: #### L IPID, FERR, GFR, ANEU, CBC, TSH, CMP, ADIFF, A1C, VIDH ####[address] [place], [place] [address] ALP [Catalytic activity/Vol] 61 U/L Normal 40-135 [facility] ([place] Comment on above: Performed By: #### L IPID, FERR, GFR, ANEU, CBC, TSH, CMP, ADIFF, A1C, VIDH ####[address] [place], [place] [address] ALT [Catalytic activity/Vol] 21 U/L Normal 14-59 [facility] ([place] Comment on above: Performed By: #### L IPID, FERR, GFR, ANEU, CBC, TSH, CMP, ADIFF, A1C, VIDH ####[address] [place], [place] [address] AST [Catalytic activity/Vol] 19 U/L Normal 10-40 [facility] ([place] Comment on above: Performed By: #### L IPID, FERR, GFR, ANEU, CBC, TSH, CMP, ADIFF, A1C, VIDH ####[address] [place], [place] [address] Bili Total 0.3 mg/dL Normal 0.2-1.0 [facility] ([place] Comment on above: Result Comment: Use of this assay is not recommended for patients undergoing treatment with eltrombopag due to the potential for falsely elevated results. Performed By: #### L IPID, FERR, GFR, ANEU, CBC, TSH, CMP, ADIFF, A1C, VIDH ####[address] [place], [place] [address] BUN/Creatinine Ratio 23 ratio Normal 7-27 [facility] ([place] Comment on above: Performed By: #### L IPID, FERR, GFR, ANEU, CBC, TSH, CMP, ADIFF, A1C, VIDH ####[address] [place], [place] [address] Calcium [Mass/Vol] 9.1 mg/dL Normal 8.4-10.2 [facility] ([place] Comment on above: Performed By: #### L IPID, FERR, GFR, ANEU, CBC, TSH, CMP, ADIFF, A1C, VIDH ####[address] [place], [place] [address] Chloride [Moles/Vol] 103 mmol/L Normal 98-107 [facility] ([place] Comment on above: Performed By: #### L IPID, FERR, GFR, ANEU, CBC, TSH, CMP, ADIFF, A1C, VIDH ####[address] [place], [place] [address] CO2 [Moles/Vol] 29 mmol/L Normal 23-31 [facility] ([place] Comment on above: Performed By: #### L IPID, FERR, GFR, ANEU, CBC, TSH, CMP, ADIFF, A1C, VIDH ####[address] [place], [place] [address] Creatinine [Mass/Vol] 1.26 mg/dL High 0.55-1.02 [facility] ([place]) Comment on above: Performed By: #### L IPID, FERR, GFR, ANEU, CBC, TSH, CMP, ADIFF, A1C, VIDH ####[address] [place], [place] [address] Electrolyte Balance 8.0 mEq/L Normal 4.0-15.0 [facility] ([place]) Comment on above: Performed By: #### L IPID, FERR, GFR, ANEU, CBC, TSH, CMP, ADIFF, A1C, VIDH ####[address] [place], [place] [address] Globulin 3.3 G/dL Normal [facility] ([place] Comment on above: Performed By: #### L IPID, FERR, GFR, ANEU, CBC, TSH, CMP, ADIFF, A1C, VIDH ####[address] [place], [place] [address] Glucose [Mass/Vol] 126 mg/dL High 83-110 [facility] ([place] Comment on above: Performed By: #### L IPID, FERR, GFR, ANEU, CBC, TSH, CMP, ADIFF, A1C, VIDH ####[address] [place], [place] [address] Potassium [Moles/Vol] 4.6 mmol/L Normal 3.5-5.1 [facility] ([place]) Comment on above: Performed By: #### L IPID, FERR, GFR, ANEU, CBC, TSH, CMP, ADIFF, A1C, VIDH ####[address] [place], [place] [address] Sodium [Moles/Vol] 140 mmol/L Normal 136-145 [facility] ([place] Comment on above: Performed By: #### L IPID, FERR, GFR, ANEU, CBC, TSH, CMP, ADIFF, A1C, VIDH ####[address] [place], [place] [address] Total Protein 7.0 G/dL Normal 6.4-8.2 [facility] ([place] Comment on above: Performed By: #### L IPID, FERR, GFR, ANEU, CBC, TSH, CMP, ADIFF, A1C, VIDH ####[address] [place], [place] [address] Urea nitrogen [Mass/Vol] 29 mg/dL High 7-18 [facility] ([place] Comment on above: Performed By: #### L IPID, FERR, GFR, ANEU, CBC, TSH, CMP, ADIFF, A1C, VIDH ####[address] [place], [place] [address] Joselyn 02-14-2024 Ferritin [Mass/Vol] 155.0 ng/mL Normal 8.0-252.0 [facility] ([place] Comment on above: Performed By: #### L IPID, FERR, GFR, ANEU, CBC, TSH, CMP, ADIFF, A1C, VIDH #### [place] [address] [place], [place] [address] LIPIDon 02-14-2024 Cholesterol [Mass/Vol] 124 mg/dL Normal 0-200 [facility] ([place]) Comment on above: Result Comment: Chol esterol Reference Interval: Less than 200 Desirable 200-239 Borderline high risk 240 and above High risk Performed By: #### L IPID, FERR, GFR, ANEU, CBC, TSH, CMP, ADIFF, A1C, VIDH ####[place] [address] [place], [place] [address] Cholesterol in HDL [Mass/Vol] 38 mg/dL Low 40-60 [facility] ([place] Comment on above: Performed By: #### L IPID, FERR, GFR, ANEU, CBC, TSH, CMP, ADIFF, A1C, VIDH ####[address] [place], [place] [address] Cholesterol in LDL [Mass/Vol] 37 mg/dL Normal 0-130 [facility] ([place] Comment on above: Performed By: #### L IPID, FERR, GFR, ANEU, CBC, TSH, CMP, ADIFF, A1C, VIDH ####[address] [place], [place] [address] Triglyceride [Mass/Vol] 246 mg/dL High 0-150 A [facility] ([place]) Comment on above: Result Comment: Trig lyceride Reference Interval: Less than 150 Normal 150-199 Borderline high risk 200-499 High risk 500 or higher Very high risk Performed By: #### L IPID, FERR, GFR, ANEU, CBC, TSH, CMP, ADIFF, A1C, VIDH ####[address] [place], [place] [address] TSHon 02-14-2024 TSH Qn 2.18 m[IU]/L Normal 0.36-3.74 [facility] ([place] Comment on above: Performed By: #### L IPID, FERR, GFR, ANEU, CBC, TSH, CMP, ADIFF, A1C, VIDH #### [address] [place], [place] [address] VIDHon 02-14-2024 Vit. D 25-Hydroxy 55.4 ng/mL Normal [facility] ([place]) Comment on above: Result Comment: Inte rpretive Values Based on Total 25(OH) Vitamin D: Deficient <20 ng/mL Insufficient 20 - <30 ng/mL Sufficient 30-100 ng/mL Performed By: #### L IPID, FERR, GFR, ANEU, CBC, TSH, CMP, ADIFF, A1C, VIDH ####[address] [place], [place] [address] BD BONE DENSITY DEXA AXIAL S KELETONon [...] 12/27/2023 3:14:57 PM Ordering Provider: ADRIENNE Bassett [facility] ([place]) [place] MAMMOGRAM SCREENING BILAT ERAL W/TOMOon 12-27-2023 MA MAMMOGRAM SCREENING BILATERAL W/YOAV ORIGINAL FROM: [facility] [address], [place] [address] PROCEDURE FOR: MANSI CARO [facility] [place] [address] Home: PID#: [id number] Exam#: [id number] : 1955 Age: 68 TO: ADRIENNE BYERS DO [address] [place] [address] Fax: NO FAX EXAMINATION: SCREENING DIGITAL BILATERAL [...] screening with annual mammograms is recommended. Junito Gilmore risk calculations, generated with the history provided, [...] addition to annual mammographic screening per the [employer]. BIRADS: MAMMOGRAM BI-RADS: 1: Negative RECALL: 1 year screening RECALL TYPE: mammo LETTER SENT: Normal BI-RADS 1 and 2 Interpreted by: Lesley Levine Preliminary Report By: Lesley Levine Electronically signed By Lesley Levine Dictated Date: 12/27/2023 8:56:06 PM Prelim Date: 12/27/2023 8:59:32 PM Sign Date: 12/27/2023 8:59:32 PM Ordering Provider: ADRIENNE BYERS [employer]: CHARLEE BARCENAS RT(R)(M)(CT) letter sent: Normal BI-RADS 1 and 2 Mammogram BI-RADS: 1 Negative Normal [facility] ([place]) Thin prep Papanicolaou smear with manual screeningOrdered By: Uday Orosco on 12-08-2023 Thin prep Papanicolaou smear with manual screening 129 mg/dL 74-106 [facility] Comment on above: MANAGEMENT OF PATIEN T [...] 10-25-2023 Cholesterol [Mass/Vol] 123 mg/dL Normal 0-200 [facility] ([place]) Comment on above: Result Comment: Chol esterol Reference Interval: Less than 200 Desirable 200-239 Borderline high risk 240 and above High risk Performed By: #### C RE, GFR #### [address] [address] Cholesterol in HDL [Mass/Vol] 44 mg/dL Normal 40-60 [facility] ([place]) Comment on above: Performed By: #### C RE, GFR #### [address] [address] Cholesterol in LDL [Mass/Vol] 51 mg/dL Normal 0-130 [facility] ([place] Comment on above: Performed By: #### C RE, GFR #### [address] [address] Triglyceride [Mass/Vol] 139 mg/dL Normal 0-150 [facility] ([place]) Comment on above: Result Comment: Trig lyceride Reference Interval: Less than 150 Normal 150-199 Borderline high risk 200-499 High risk 500 or higher Very high risk Performed By: #### C RE, GFR #### [address] [address] PBNPon 10-25-2023 Natriuretic peptide B (Bld) [Mass/Vol] 297 pg/mL High 0-125 [facility] ([place]) Comment on above: Result Comment: NT-p roBNP results of less than 300 pg/mL effectively rules out acute congestive heart failure with 99% negative predictive value. Performed By: #### L IPID, PBNP ####[address] [place], [place] [address] Glucose Glucometer (BldC) [M ass/Vol]Ordered By: Camacho Aguilar on 10-12-2023 Glucose [Mass/Vol] 207 mg/dL 74-106 [facility] Comment on above: MANAGEMENT OF PATIEN T CARE PER NURSING PROTOCOL Absolute lymphocyte countOrd ered By: Tony Mayer on 10-11-2023 Lymphocytes Auto (Unsp spec) [#/Vol] 2.84 10*3/uL 0.83-4.51 [facility] Basophil percentageOrdered B y: Tony Mayer on 10-11-2023 Basophil percentage 3.6 mg/dL 2.5-4.9 [facility] Basophils/100 WBC (Bld) 0.8 % 0-1 [facility] Chloride [Moles/Vol] 111 mmol/L 98-107 [facility] Eosinophils/100 WBC (Bld) 2.5 % 0-5 [facility] Glucose [Mass/Vol] 123 mg/dL 74-106 [facility] Comment on above: Fasting Glucose resu lt from 100 to 125 mg/dL suggests IMPAIRED HOMEOSTASIS per A.D.A. criteria. Neutrophils (Bld) [#/Vol] 1.7 10*3/uL 2.0-7.7 [facility] Neutrophils/100 WBC (Bld) 33.5 % 47-70 [facility] Potassium [Moles/Vol] 4.0 mmol/L 3.5-5.1 [facility] Sodium [Moles/Vol] 142 mmol/L 136-145 [facility] WBC (Bld) [#/Vol] 5.2 10*3/uL 4.4-11.0 [facility] Blood erythrocytes count (nu mber/volume)Ordered By: Tony Mayer on 10-11-2023 RBC (Bld) [#/Vol] 3.75 10*6/uL 4.2-5.4 [facility] Blood hemoglobin measurement (mass/volume)Ordered By: Tony Mayer on 10-11-2023 Hemoglobin (Bld) [Mass/Vol] 11.5 g/dL 12.0-15.0 [facility] Blood lymphocytes/100 leukoc ytesOrdered By: Tony Mayer on 10-11-2023 Lymphocytes/100 WBC (Bld) 54.9 % 19-41 [facility] Blood monocytes/100 leukocyt esOrdered By: Tony Mayer on 10-11-2023 Monocytes/100 WBC (Bld) 8.3 % 0-10 [facility] Blood platelet mean volumeOr dered By: Tony Mayer on 10-11-2023 Platelet mean volume (Bld) [Entitic vol] 10.8 fL 6.2-12.0 [facility] Determination of erythrocyte mean corpuscular volume (MCV)Ordered By: Tony Mayer on 10-11-2023 MCV (RBC) [Entitic vol] 96.0 fL 81-99 [facility] Hematocrit Auto (Bld) [Volum e fraction]Ordered By: Tony Mayer on 10-11-2023 Hematocrit (Bld) [Volume fraction] 36.0 % 37-47 [facility] - Chemistry and C hemistry - challengeOrdered By: Tony Mayer on 10-11-2023 CO2 [Moles/Vol] 25.0 mmol/L 21.0-32.0 [facility] Magnesium [Mass/Vol] 2.2 mg/dL 1.6-2.6 [facility] Urea nitrogen/Creatinine [Mass ratio] 27.2 mg/mg 10-20 [facility] - Hematology and Cell countsOrdered By: Tony Mayer on 10-11-2023 Erythrocyte distribution width (RBC) [Entitic vol] 48.7 fL 35.1-43.9 [facility] Erythrocyte distribution width (RBC) [Ratio] 13.7 % 11.6-14.6 [facility] Immature granulocytes/100 WBC (Bld) 0.000 % 0.0-0.9 [facility] Comment on above: IG% - Immature Granu locytes (promyelocytes, myelocytes and metamyelocytes) > 1% indicates that a LEFT SHIFT is Present. MCH (RBC) [Entitic mass] 30.7 pg 27.0-32.0 [facility] Nucleated RBC/100 WBC (Bld) [Ratio] 0 % 0-5 [facility] MCHC Auto (RBC) [Mass/Vol]Or dered By: Tony Mayer on 10-11-2023 MCHC (RBC) [Mass/Vol] 31.9 g/dL 32-36 [facility] No Panel InformationOrdered By: Tony Mayer on 10-11-2023 Estimated Creatinine Clearance Calc 56.77 ml/min [facility] Estimated GFR (MDRD) Amer 78 mL/min >60 [facility] Comment on above: GFR Calc Estimated GFR (MDRD) Non-Af Amer 64 mL/min >60 [facility] Comment on above: Non- GFR Calc Platelets bldOrdered By: Jesu Mayer on 10-11-2023 Platelets (Bld) [#/Vol] 144 10*3/uL 150-450 [facility] Serum or plasma calcium loco urement (mass/volume)Ordered By: Tony Mayer on 10-11-2023 Calcium [Mass/Vol] 8.7 mg/dL 8.5-10.1 [facility] Serum or plasma creatinine m easurement (mass/volume)Ordered By: Tony Mayer on 10-11-2023 Creatinine [Mass/Vol] 0.92 mg/dL 0.55-1.02 [facility] Comment on above: The validity of the calculated GFR & GFRAA in patients over 70 years has not been determined. Clinical correlation is essential. Serum or plasma urea nitroge n measurement (mass/volume)Ordered By: Tony Mayer on 10-11-2023 Urea nitrogen [Mass/Vol] 25 mg/dL 7-18 [facility] Thin prep Papanicolaou smear with manual screeningOrdered By: Tony Mayer on 10-11-2023 Thin prep Papanicolaou smear with manual screening 6 5-15 [facility] Basophil percentageOrdered B y: Jaci White on 10-08-2023 Bilirubin [Mass/Vol] 0.30 mg/dL 0.20-1.00 [facility] Comment on above: For patients on eltr ombopag therapy, use of Dimension Wright TBIL is not recommended. Protein [Mass/Vol] 6.5 g/dL 6.4-8.2 [facility] Laboratory - Chemistry and C hemistry - challengeOrdered By: Jaci Fannie on 10-08-2023 ALP [Catalytic activity/Vol] 48 U/L 45-117 [facility] ALT [Catalytic activity/Vol] 17 U/L 13-56 [facility] Globulin (S) [Mass/Vol] 3.2 g/dL 2.2-4.2 [facility] Serum or plasma albumin loco urement (mass/volume)Ordered By: Jaci Fannie on 10-08-2023 Albumin [Mass/Vol] 3.3 g/dL 3.2-5.0 [facility] Serum or plasma albumin/glob ulin mass ratioOrdered By: [facility] Fannie on 10-08-2023 Albumin/Globulin [Mass ratio] 1.0 {ratio} 0.9-2.4 [facility] Thin prep Papanicolaou smear with manual screeningOrdered By: [facility] Fannie on 10-08-2023 Thin prep Papanicolaou smear with manual screening 18 U/L 15-37 [facility] Whole blood hemoglobin A1c/t otal hemoglobin ratio (mass fraction)Ordered By: Jaci Greco on 10-08-2023 HbA1c (Bld) [Mass fraction] 6.8 % 3.8-5.6 [facility] Comment on above: Normal < 5.7 % Predi abetic 5.7 - 6.4 % Diabetic >or= 6.5 % Please note range changes. Absolute lymphocyte countOrd ered By: David Le on 10-07-2023 Lymphocytes Auto (Unsp spec) [#/Vol] 3.02 10*3/uL 0.83-4.51 [facility] Basophil percentageOrdered B y: David Estephania on 10-07-2023 Basophils/100 WBC (Bld) 0.6 % 0-1 [facility] Chloride [Moles/Vol] 108 mmol/L 98-107 [facility] Eosinophils/100 WBC (Bld) 0.9 % 0-5 [facility] Glucose [Mass/Vol] 137 mg/dL 74-106 [facility] Comment on above: Fasting Glucose resu lt greater than or equal to 126 mg/dL suggests DIABETES MELLITUS per A.D.A. criteria. Neutrophils (Bld) [#/Vol] 2.7 10*3/uL 2.0-7.7 [facility] Neutrophils/100 WBC (Bld) 41.7 % 47-70 [facility] Potassium [Moles/Vol] 4.4 mmol/L 3.5-5.1 [facility] Sodium [Moles/Vol] 140 mmol/L 136-145 [facility] WBC (Bld) [#/Vol] 6.4 10*3/uL 4.4-11.0 [facility] Blood erythrocytes count (nu mber/volume)Ordered By: David Best on 10-07-2023 RBC (Bld) [#/Vol] 3.91 10*6/uL 4.2-5.4 [facility] Blood hemoglobin measurement (mass/volume)Ordered By: David Best on 10-07-2023 Hemoglobin (Bld) [Mass/Vol] 12.0 g/dL 12.0-15.0 [facility] Blood lymphocytes/100 leukoc ytesOrdered By: Daivd Best on 10-07-2023 Lymphocytes/100 WBC (Bld) 47.6 % 19-41 [facility] Blood monocytes/100 leukocyt esOrdered By: David Best on 10-07-2023 Monocytes/100 WBC (Bld) 9.0 % 0-10 [facility] Blood platelet mean volumeOr dered By: David Best on 10-07-2023 Platelet mean volume (Bld) [Entitic vol] 11.7 fL 6.2-12.0 [facility] Determination of erythrocyte mean corpuscular volume (MCV)Ordered By: David Best on 10-07-2023 MCV (RBC) [Entitic vol] 96.7 fL 81-99 [facility] Glucose Glucometer (BldC) [M ass/Vol]Ordered By: Alonso Marte on 10-07-2023 Glucose [Mass/Vol] 126 mg/dL 74-106 [facility] Comment on above: MANAGEMENT OF PATIEN T CARE PER NURSING PROTOCOL Hematocrit Auto (Bld) [Volum e fraction]Ordered By: David Best on 10-07-2023 Hematocrit (Bld) [Volume fraction] 37.8 % 37-47 [facility] INR in Blood by Coagulation assayOrdered By: David Best on 10-07-2023 INR Coag (Bld) [Relative time] 1.0 {INR} [facility] Laboratory - Chemistry and C hemistry - challengeOrdered By: David Best on 10-07-2023 CO2 [Moles/Vol] 26.0 mmol/L 21.0-32.0 [facility] Urea nitrogen/Creatinine [Mass ratio] 23.1 mg/mg 10-20 [facility] Laboratory - Chemistry and C hemistry - challengeOrdered By: Jaci Greco on 10-07-2023 Magnesium [Mass/Vol] 2.5 mg/dL 1.6-2.6 [facility] Laboratory - CoagulationOrde red By: David Best on 10-07-2023 aPTT Coag (Bld) [Time] 28.7 s 24.1-36.2 [facility] PT Coag (PPP) [Time] 12.9 s 11.7-14.9 [facility] Laboratory - Hematology and Cell countsOrdered By: David Best on 10-07-2023 Erythrocyte distribution width (RBC) [Entitic vol] 48.8 fL 35.1-43.9 [facility] Erythrocyte distribution width (RBC) [Ratio] 13.6 % 11.6-14.6 [facility] Immature granulocytes/100 WBC (Bld) 0.200 % 0.0-0.9 [facility] Comment on above: IG% - Immature Granu locytes (promyelocytes, myelocytes and metamyelocytes) > 1% indicates that a LEFT SHIFT is Present. MCH (RBC) [Entitic mass] 30.7 pg 27.0-32.0 [facility] Nucleated RBC/100 WBC (Bld) [Ratio] 0 % 0-5 [facility] MCHC Auto (RBC) [Mass/Vol]Or dered By: David Best on 10-07-2023 MCHC (RBC) [Mass/Vol] 31.7 g/dL 32-36 [facility] No Panel InformationOrdered By: David Best on 10-07-2023 Estimated Creatinine Clearance Calc 44.64 ml/min [facility] Estimated GFR (MDRD) Amer 59 mL/min >60 [facility] Comment on above: GFR Calc Estimated GFR (MDRD) Non-Af Amer 49 mL/min >60 [facility] Comment on above: Non- GFR Calc Troponin I High Sensitivity 8 pg/mL 3.0-54.0 [facility] Comment on above: Please Note: New Nasrin t Units and Gender Specific Reference Ranges. For more information see Policy Stat Procedure [facility] High Sensitivity Troponin (TNIH) and attachments. Platelets bldOrdered By: Jefferson Best on 10-07-2023 Platelets (Bld) [#/Vol] 153 10*3/uL 150-450 [facility] Serum or plasma calcium loco urement (mass/volume)Ordered By: David Best on 10-07-2023 Calcium [Mass/Vol] 9.2 mg/dL 8.5-10.1 [facility] Serum or plasma creatinine m easurement (mass/volume)Ordered By: David Best on 10-07-2023 Creatinine [Mass/Vol] 1.17 mg/dL 0.55-1.02 [facility] Comment on above: The validity of the calculated GFR & GFRAA in patients over 70 years has not been determined. Clinical correlation is essential. Serum or plasma urea nitroge n measurement (mass/volume)Ordered By: David Best on 10-07-2023 Urea nitrogen [Mass/Vol] 27 mg/dL 7-18 [facility] Thin prep Papanicolaou smear with manual screeningOrdered By: David Best on 10-07-2023 Thin prep Papanicolaou smear with manual screening 6 5-15 [facility] Absolute lymphocyte countOrd ered By: Alonso Marte on 10-02-2023 Lymphocytes Auto (Unsp spec) [#/Vol] 2.34 10*3/uL 0.83-4.51 [facility] Basophil percentageOrdered B y: Alonso Marte on 10-02-2023 Basophils/100 WBC (Bld) 0.7 % 0-1 [facility] Chloride [Moles/Vol] 110 mmol/L 98-107 [facility] Eosinophils/100 WBC (Bld) 2.1 % 0-5 [facility] Glucose [Mass/Vol] 154 mg/dL 74-106 [facility] Comment on above: Fasting Glucose resu lt greater than or equal to 126 mg/dL suggests DIABETES MELLITUS per A.D.A. criteria. Neutrophils (Bld) [#/Vol] 2.4 10*3/uL 2.0-7.7 [facility] Neutrophils/100 WBC (Bld) 45.6 % 47-70 [facility] Potassium [Moles/Vol] 3.7 mmol/L 3.5-5.1 [facility] Sodium [Moles/Vol] 140 mmol/L 136-145 [facility] WBC (Bld) [#/Vol] 5.4 10*3/uL 4.4-11.0 [facility] Blood erythrocytes count (nu mber/volume)Ordered By: Alonso Marte on 10-02-2023 RBC (Bld) [#/Vol] 3.88 10*6/uL 4.2-5.4 [facility] Blood hemoglobin measurement (mass/volume)Ordered By: Alonso Marte on 10-02-2023 Hemoglobin (Bld) [Mass/Vol] 11.8 g/dL 12.0-15.0 [facility] Blood lymphocytes/100 leukoc ytesOrdered By: Alonso Marte on 10-02-2023 Lymphocytes/100 WBC (Bld) 43.7 % 19-41 [facility] Blood monocytes/100 leukocyt esOrdered By: Alonso Marte on 10-02-2023 Monocytes/100 WBC (Bld) 7.7 % 0-10 [facility] Blood platelet mean volumeOr dered By: Alonso Marte on 10-02-2023 Platelet mean volume (Bld) [Entitic vol] 11.4 fL 6.2-12.0 [facility] Determination of erythrocyte mean corpuscular volume (MCV)Ordered By: Alonso Marte on 10-02-2023 MCV (RBC) [Entitic vol] 96.6 fL 81-99 [facility] Hematocrit Auto (Bld) [Volum e fraction]Ordered By: Alonso Marte on 10-02-2023 Hematocrit (Bld) [Volume fraction] 37.5 % 37-47 [facility] Laboratory - Chemistry and C hemistry - challengeOrdered By: Alonso Marte on 10-02-2023 CO2 [Moles/Vol] 28.0 mmol/L 21.0-32.0 [facility] Urea nitrogen/Creatinine [Mass ratio] 17.6 mg/mg 10-20 [facility] Laboratory - Hematology and Cell countsOrdered By: Alonso Marte on 10-02-2023 Erythrocyte distribution width (RBC) [Entitic vol] 47.2 fL 35.1-43.9 [facility] Erythrocyte distribution width (RBC) [Ratio] 13.3 % 11.6-14.6 [facility] Immature granulocytes/100 WBC (Bld) 0.200 % 0.0-0.9 [facility] Comment on above: IG% - Immature Granu locytes (promyelocytes, myelocytes and metamyelocytes) > 1% indicates that a LEFT SHIFT is Present. MCH (RBC) [Entitic mass] 30.4 pg 27.0-32.0 [facility] Nucleated RBC/100 WBC (Bld) [Ratio] 0 % 0-5 [facility] MCHC Auto (RBC) [Mass/Vol]Or dered By: Alonso Marte on 10-02-2023 MCHC (RBC) [Mass/Vol] 31.5 g/dL 32-36 [facility] No Panel InformationOrdered By: Alonso Marte on 10-02-2023 Estimated Creatinine Clearance Calc 52.60 ml/min [facility] Estimated GFR (MDRD) Amer 73 mL/min >60 [facility] Comment on above: GFR Calc Estimated GFR (MDRD) Non-Af Amer 61 mL/min >60 [facility] Comment on above: Non- GFR Calc Platelets bldOrdered By: Alonso Marte on 10-02-2023 Platelets (Bld) [#/Vol] 136 10*3/uL 150-450 [facility] Serum or plasma calcium loco urement (mass/volume)Ordered By: Alonso Marte on 10-02-2023 Calcium [Mass/Vol] 9.0 mg/dL 8.5-10.1 [facility] Serum or plasma creatinine m easurement (mass/volume)Ordered By: Alonso Marte on 10-02-2023 Creatinine [Mass/Vol] 0.96 mg/dL 0.55-1.02 [facility] Comment on above: The validity of the calculated GFR & GFRAA in patients over 70 years has not been determined. Clinical correlation is essential. Serum or plasma urea nitroge n measurement (mass/volume)Ordered By: Alonso Marte on 10-02-2023 Urea nitrogen [Mass/Vol] 17 mg/dL 7-18 [facility] Thin prep Papanicolaou smear with manual screeningOrdered By: Alonso Marte on 10-02-2023 Thin prep Papanicolaou smear with manual screening 2 5-15 [facility] Glucose Glucometer (BldC) [M ass/Vol]Ordered By: Ben Johnson on 10-01-2023 Glucose [Mass/Vol] 182 mg/dL 74-106 [facility] Comment on above: MANAGEMENT OF PATIEN T CARE PER NURSING PROTOCOL Basophil percentageOrdered B y: Tony Mejia on 09-29-2023 Cholesterol [Mass/Vol] 106 mg/dL <200 [facility] Comment on above: <200 mg/dL Desirable 200-240 mg/dL Borderline >240 mg/dL High Risk Triglyceride [Mass/Vol] 145 mg/dL <199 [facility] Comment on above: The drugs N-Acetylcy steine and Metamizole may falsely depress this assay.Serum Triglycerides Reference Interval Normal <150 mg/dL Borderline high 150 - 199 mg/dL High 200 - 499 mg/dL Very High > or = 500 mg/dL Serum or plasma cholesterol in HDL measurement (mass/volume)Ordered By: Tony Mejia on 09-29-2023 Cholesterol in HDL [Mass/Vol] 41 mg/dL >40 [facility] Comment on above: The drugs N-Acetylcy steine and Metamizole may falsely depress this assay. Reference Range HDL <40 mg/dL Low HDL Cholesterol HDL >or= 60 mg/dL High HDL Cholesterol Serum or plasma cholesterol in VLDL measurement (mass/volume)Ordered By: Tony Mejia on 09-29-2023 Cholesterol in VLDL [Mass/Vol] 29 mg/dL 5-40 [facility] Serum or plasma low density lipoprotein (LDL) cholesterol measurement (mass/volume)Ordered By: Tony Mejia on 09-29-2023 Cholesterol in LDL [Mass/Vol] 36 mg/dL 0-130 [facility] Absolute lymphocyte countOrd ered By: Uday Orosco on 09-28-2023 Lymphocytes Auto (Unsp spec) [#/Vol] 3.61 10*3/uL 0.83-4.51 [facility] Basophil percentageOrdered B y: Uday Orosco on 09-28-2023 Basophil percentage 0 SEEN /hpf 0-5 [facility] Basophils/100 WBC (Bld) 0.6 % 0-1 [facility] Chloride [Moles/Vol] 106 mmol/L 98-107 [facility] Eosinophils/100 WBC (Bld) 1.0 % 0-5 [facility] Glucose [Mass/Vol] 159 mg/dL 74-106 [facility] Comment on above: Fasting Glucose resu lt greater than or equal to 126 mg/dL suggests DIABETES MELLITUS per A.D.A. criteria. Neutrophils (Bld) [#/Vol] 3.0 10*3/uL 2.0-7.7 [facility] Neutrophils/100 WBC (Bld) 40.8 % 47-70 [facility] Potassium [Moles/Vol] 3.9 mmol/L 3.5-5.1 [facility] Sodium [Moles/Vol] 140 mmol/L 136-145 [facility] WBC (Bld) [#/Vol] 7.3 10*3/uL 4.4-11.0 [facility] Bilirubin Test strip Ql (U)O rdered By: Uday Orosco on 09-28-2023 Bilirubin Ql (U) Negative Negative [facility] Blood erythrocytes count (nu mber/volume)Ordered By: Uday Orosco on 09-28-2023 RBC (Bld) [#/Vol] 4.14 10*6/uL 4.2-5.4 [facility] Blood hemoglobin measurement (mass/volume)Ordered By: Uday Orosco on 09-28-2023 Hemoglobin (Bld) [Mass/Vol] 12.5 g/dL 12.0-15.0 [facility] Blood lymphocytes/100 leukoc ytesOrdered By: Uday Orosco on 09-28-2023 Lymphocytes/100 WBC (Bld) 49.7 % 19-41 [facility] Blood monocytes/100 leukocyt esOrdered By: Uday Orosco on 09-28-2023 Monocytes/100 WBC (Bld) 7.6 % 0-10 [facility] Blood platelet mean volumeOr dered By: Uday Orosco on 09-28-2023 Platelet mean volume (Bld) [Entitic vol] 11.1 fL 6.2-12.0 [facility] Determination of erythrocyte mean corpuscular volume (MCV)Ordered By: Uday Orosco on 09-28-2023 MCV (RBC) [Entitic vol] 95.7 fL 81-99 [facility] Hematocrit Auto (Bld) [Volum e fraction]Ordered By: Uday Orosco on 09-28-2023 Hematocrit (Bld) [Volume fraction] 39.6 % 37-47 [facility] INR in Blood by Coagulation assayOrdered By: Uday Orosco on 09-28-2023 INR Coag (Bld) [Relative time] 1.0 {INR} [facility] Ketones Test strip Ql (U)Ord ered By: Uday Orosco on 09-28-2023 Ketones Ql (U) Negative Negative [facility] Laboratory - Chemistry and C hemistry - challengeOrdered By: Uday Orosco on 09-28-2023 CO2 [Moles/Vol] 28.0 mmol/L 21.0-32.0 [facility] Urea nitrogen/Creatinine [Mass ratio] 24.5 mg/mg 10-20 [facility] Laboratory - CoagulationOrde red By: Uday Orosco on 09-28-2023 aPTT Coag (Bld) [Time] 24.8 s 24.1-36.2 [facility] PT Coag (PPP) [Time] 12.7 s 11.7-14.9 [facility] Laboratory - Hematology and Cell countsOrdered By: Uday Orosco on 09-28-2023 Erythrocyte distribution width (RBC) [Entitic vol] 47.4 fL 35.1-43.9 [facility] Erythrocyte distribution width (RBC) [Ratio] 13.3 % 11.6-14.6 [facility] Immature granulocytes/100 WBC (Bld) 0.300 % 0.0-0.9 [facility] Comment on above: IG% - Immature Granu locytes (promyelocytes, myelocytes and metamyelocytes) > 1% indicates that a LEFT SHIFT is Present. MCH (RBC) [Entitic mass] 30.2 pg 27.0-32.0 [facility] Nucleated RBC/100 WBC (Bld) [Ratio] 0 % 0-5 [facility] MCHC Auto (RBC) [Mass/Vol]Or dered By: Uday Orosco on 09-28-2023 MCHC (RBC) [Mass/Vol] 31.6 g/dL 32-36 [facility] Mucus LM Ql (Urine sed)Order ed By: Uday Orosco on 09-28-2023 Mucus Ql (Urine sed) 0 SEEN /hpf [facility] Nitrite Test strip Ql (U)Ord ered By: Uday Orosco on 09-28-2023 Nitrite Ql (U) Negative Negative [facility] No Panel InformationOrdered By: Uday Orosco on 09-28-2023 Estimated Creatinine Clearance Calc 46.28 ml/min [facility] Estimated GFR (MDRD) Amer 63 mL/min >60 [facility] Comment on above: GFR Calc Estimated GFR (MDRD) Non-Af Amer 52 mL/min >60 [facility] Comment on above: Non- GFR Calc Troponin I High Sensitivity 7 pg/mL 3.0-54.0 [facility] Comment on above: Please Note: New Ansrin t Units and Gender Specific Reference Ranges. For more information see Policy Stat Procedure [facility] High Sensitivity Troponin (TNIH) and attachments. No Panel InformationOrdered By: Tony Mejia on 09-28-2023 Thyroid Stimulating Hormone (TSH) 2.94 uIU/mL 0.358-3.74 [facility] Platelets bldOrdered By: Chad Orosco on 09-28-2023 Platelets (Bld) [#/Vol] 157 10*3/uL 150-450 [facility] Protein Test strip Ql (U)Ord ered By: Uday Orosco on 09-28-2023 Protein Ql (U) Negative Negative [facility] Serum or plasma calcium loco urement (mass/volume)Ordered By: Uday Orosco on 09-28-2023 Calcium [Mass/Vol] 9.7 mg/dL 8.5-10.1 [facility] Serum or plasma creatinine m easurement (mass/volume)Ordered By: Uday Orosco on 09-28-2023 Creatinine [Mass/Vol] 1.10 mg/dL 0.55-1.02 [facility] Comment on above: The validity of the calculated GFR & GFRAA in patients over 70 years has not been determined. Clinical correlation is essential. Serum or plasma urea nitroge n measurement (mass/volume)Ordered By: Uday Orosco on 09-28-2023 Urea nitrogen [Mass/Vol] 27 mg/dL 7-18 [facility] Squamous epithelial cells de tection in urine sediment by light microscopyOrdered By: Uday Orosco on 09-28-2023 Epithelial cells.squamous LM Ql (Urine sed) 0 SEEN /hpf 5-10 [facility] Thin prep Papanicolaou smear with manual screeningOrdered By: Uday Orosco on 09-28-2023 Thin prep Papanicolaou smear with manual screening 6 5-15 [facility] Urine blood detectionOrdered By: Uday Orosco on 09-28-2023 RBC Ql (U) Negative Negative [facility] RBC Ql (U) 0 SEEN /hpf 0-5 [facility] Urine clarityOrdered By: Chad Orosco on 09-28-2023 Clarity (U) Clear Clear [facility] Urine color determinationOrd ered By: Uday Orosco on 09-28-2023 Color (U) Yellow Yellow [facility] Urine glucose detectionOrder ed By: Uday Orosco on 09-28-2023 Glucose Ql (U) 1000 mg/dl Normal [facility] Urine leukocyte esterase det ection by dipstickOrdered By: Uday Orosco on 09-28-2023 Leukocyte esterase Test strip Ql (U) 25 /ul Negative [facility] Urine pHOrdered By: Uday cai on 09-28-2023 pH (U) 8.0 [pH] 5.0 - 8.0 [facility] Urine sediment bacteria coun t by microscopy (number/high power field)Ordered By: Uday Orosco on 09-28-2023 Bacteria LM.HPF (Urine sed) [#/Area] 0 /[HPF] None Seen [facility] Urine specific gravity measu rementOrdered By: Uday Orosco on 09-28-2023 Specific gravity (U) [Rel density] 1.010 1.002-1.030 [facility] Urobilinogen Auto test strip Ql (U)Ordered By: Uday Orosco on 09-28-2023 Urobilinogen Ql (U) Normal mg/dl Normal [facility] .GFRon 09-07-2023 GFR 47 ml/min/1.73sqm Normal [facility] ([place]) Comment on above: Result Comment: GFR [...] By: #### Reginaldo SKELTON, CRE ####[address] [place], [place] [address] GFR Non- 39 ml/min/1.73sqm Normal [facility] ([place]) Comment on above: Result Comment: GFR [...] Performed By: #### Reginaldo SKELTON, CRE ####[id number] [place], [place] [address] CREon 09-07-2023 Creatinine [Mass/Vol] 1.35 mg/dL High 0.55-1.02 [facility] ([place]) Comment on above: Performed By: #### G FR, CRE ####[place] [address] [place], [place] [address] CT ABD/PELVIS W/ IV CONTRAST ONLYon 09-07-2023 [...] 09/07/2023 10:17:27 AM Ordering Provider: ADRIENNE Bassett [facility] ([place]) LABORATORYOrdered By: SYSTEM SYSTEM on 09-07-2023 Creatinine [...] 09/01/2023 8:23:28 AM Ordering Provider: ADRIENNE Bassett [facility]) ANCAon 07-19-2023 C-ANCA 1.1 Normal 0.0-20.0 [facility]) Comment on above: Result Comment: NEW REFERENCE RANGES FOR ANCA BY EIA: NEGATIVE <= 20 UNITS WEAK POSITIVE 21 - 30 UNITS MOD. TO STRONG POSITIVE > 30 UNITS A positive result indicates the presence of AR-3 antibodies and suggests the possibility of certain autoimmune vasculitides such as Naida?s granulomatosis. A negative result indicates no AR-3 antibody or levels below the negative cut-off of the assay. These results were obtained with the [employer] QUANTA Lite AR-3 IgG EDNA. AR-3 values obtained with different manufacturers? assay methods may not be used interchangeably. The magnitude of the reported IgG level cannot be correlated to an endpoint titer. Results of this assay should be used in conjunction with clinical findings. Performed By: #### L IPID, FERR, GFR, ANEU, CBC, TSH, CMP, ADIFF, A1C, VIDH #### [address] [address] Cytoplasmic Neutro. Ab. See Below Normal A [facility]) Comment on above: Performed By: #### L IPID, FERR, GFR, ANEU, CBC, TSH, CMP, ADIFF, A1C, VIDH #### [address] [address] P-ANCA 10.8 Normal 0.0-20.0 [facility]) Comment on above: Result Comment: REFE [...] assay. These results were obtained with the [employer] QUANTA Lite MPO IgG EDNA. MPO values obtained with different manufacturers? assay methods may not be used interchangeably. The magnitude of the reported IgG level cannot be correlated to an endpoint titer. Results of this assay should be used in conjunction with clinical findings. Performed By: #### L IPID, FERR, GFR, ANEU, CBC, TSH, CMP, ADIFF, A1C, VIDH #### [address] [address] RFon 07-15-2023 Rheumatoid Factor <6.0 Normal <=5.9 [facility] ([place]) Comment on above: Result Comment: RF I [...] tests. These results were obtained with the [employer] QUANTA Lite RF IgM EDNA. RF IgM values obtained with different manufacturers' assay methods may not be used interchangeably. The magnitude of the reported IgM levels cannot be correlated to an endpoint titer. Performed By: #### C RE, GFR #### [place] [id number] ANAon 07-14-2023 Nuclear Ab IF (S) [Titer] 40 {titer} Normal Neg 40 [facility] ([place]) Comment on above: Result Comment: AZALEA Screen and Titer methodology is an immunofluorescent technique utilizing Hep2 Substrate. Performed By: #### C RE, GFR #### [address] [address] .Auto Diffon 07-13-2023 Basophil, Absolute 0.0 10 3/mcL Normal 0.0-0.2 [facility] ([place]) Comment on above: Performed By: #### C RE, GFR #### [address] [address] Basophils/100 WBC (Bld) 0.3 % Normal 0.0-2.5 A [facility] ([place]) Comment on above: Performed By: #### C RE, GFR #### [address] [address] Eosinophil, Absolute 0.1 10 3/mcL Normal 0.0-0.4 [facility] ([place]) Comment on above: Performed By: #### C RE, GFR #### [address] [address] Eosinophils/100 WBC (Bld) 1.1 % Normal 0.0-7.0 [facility] ([place]) Comment on above: Performed By: #### C RE, GFR #### [address] [address] Lymphocyte, Absolute 2.2 10 3/mcL Normal 0.8-3.9 [facility] ([place]) Comment on above: Performed By: #### C RE, GFR #### [address] [address] Lymphocytes/100 WBC (Bld) 28.8 % Normal 10.0-50.0 [facility] ([place]) Comment on above: Performed By: #### C RE, GFR #### [address] [address] Monocyte, Absolute 0.5 10 3/mcL Normal 0.2-1.0 [facility] ([place]) Comment on above: Performed By: #### C RE, GFR #### [address] [address] Monocytes/100 WBC (Bld) 7.0 % Normal 1.7-13.0 A [facility] ([place]) Comment on above: Performed By: #### C RE, GFR #### [address] [address] Neutrophils/100 WBC (Bld) 62.8 % Normal 37.0-80.0 [facility] ([place]) Comment on above: Performed By: #### C RE, GFR #### [address] [address] .GFRon 07-13-2023 GFR Non- 37 ml/min/1.73sqm Normal [facility] ([place]) Comment on above: Result Comment: GFR Population [...] Performed By: #### C RE, GFR #### [address] [address] GFR 45 ml/min/1.73sqm Normal [facility] ([place]) Comment on above: Result Comment: GFR Population [...] Performed By: #### C RE, GFR #### [address] [address] .NEUABSon 07-13-2023 Neutrophil, Absolute 4.8 10 3/mcL Normal 2.9-6.2 [facility] ([place]) Comment on above: Performed By: #### C RE, GFR #### [address] [address] B12on 07-13-2023 Cobalamin (Vitamin B12) [Mass/Vol] 1078 pg/mL High 211-911 [facility] ([place]) Comment on above: Performed By: #### C RE, GFR #### [address] [address] CBCon 07-13-2023 Erythrocyte distribution width (RBC) [Ratio] 14.5 % Normal 11.5-14.5 [facility] ([place]) Comment on above: Performed By: #### C RE, GFR #### [address] [address] Hematocrit (Bld) [Volume fraction] 37.6 % Normal 37.0-47.0 [facility] ([place]) Comment on above: Performed By: #### C RE, GFR #### [address] [address] Hgb 12.5 G/dL Normal 12.0-16.0 [facility] ([place]) Comment on above: Performed By: #### C RE, GFR #### [address] [address] MCH (RBC) [Entitic mass] 30.0 pg Normal 27.0-31.2 [facility] ([place]) Comment on above: Performed By: #### C RE, GFR #### [address] [address] MCHC 33.2 G/dL Normal 33.0-37.0 [facility] ([place] Comment on above: Performed By: #### C RE, GFR #### [address] [address] MCV (RBC) [Entitic vol] 90.4 fL Normal 80.0-94.0 A [facility] ([place]) Comment on above: Performed By: #### C RE, GFR #### [address] [address] Platelet 181 10 3/mcL Normal 130-400 [facility] ([place] Comment on above: Performed By: #### C RE, GFR #### [address] [address] Platelet mean volume (Bld) [Entitic vol] 8.9 fL Normal 7.4-10.4 [facility] ([place] Comment on above: Performed By: #### C RE, GFR #### [address] [address] RBC 4.16 10 6/mcL Low 4.20-5.40 [facility] ([place] Comment on above: Performed By: #### C RE, GFR #### [address] [address] WBC 7.7 10 3/mcL Normal 4.6-10.8 [facility] ([place] Comment on above: Performed By: #### C RE, GFR #### [address] [address] CKon 07-13-2023 CK [Catalytic activity/Vol] 36 U/L Normal 26-192 [facility] ([place] Comment on above: Performed By: #### C RE, GFR #### [address] [address] CMPon 07-13-2023 Albumin Level 3.7 G/dL Normal 3.4-4.8 [facility] ([place] Comment on above: Performed By: #### C RE, GFR #### [address] [address] Albumin/Globulin [Mass ratio] 1.0 {ratio} Low 1.1-2.5 [facility] ([place] Comment on above: Performed By: #### C RE, GFR #### [address] [address] ALP [Catalytic activity/Vol] 76 U/L Normal 40-135 [facility] ([place] Comment on above: Performed By: #### C RE, GFR #### [address] [address] ALT [Catalytic activity/Vol] 17 U/L Normal 14-59 [facility] ([place] Comment on above: Performed By: #### C RE, GFR #### [address] [address] AST [Catalytic activity/Vol] 15 U/L Normal 10-40 [facility] ([place] Comment on above: Performed By: #### C RE, GFR #### [address] [address] Bili Total 0.3 mg/dL Normal 0.2-1.0 [facility] ([place]) Comment on above: Result Comment: Use of this assay is not recommended for patients undergoing treatment with eltrombopag due to the potential for falsely elevated results. Performed By: #### C RE, GFR #### [address] [address] BUN/Creatinine Ratio 20 ratio Normal 7-27 [facility] ([place] Comment on above: Performed By: #### C RE, GFR #### [address] [address] Calcium [Mass/Vol] 8.9 mg/dL Normal 8.4-10.2 [facility] ([place]) Comment on above: Performed By: #### C RE, GFR #### [address] [address] Chloride [Moles/Vol] 104 mmol/L Normal 98-107 [facility] ([place] Comment on above: Performed By: #### C RE, GFR #### [address] [address] CO2 [Moles/Vol] 30 mmol/L Normal 23-31 [facility] ([place] Comment on above: Performed By: #### C RE, GFR #### [address] [address] Creatinine [Mass/Vol] 1.40 mg/dL High 0.55-1.02 [facility] ([place]) Comment on above: Performed By: #### C RE, GFR #### [address] [address] Electrolyte Balance 11.0 mEq/L Normal 4.0-15.0 [facility] ([place]) Comment on above: Performed By: #### C RE, GFR #### [address] [address] Globulin 3.6 G/dL Normal [facility] ([place] Comment on above: Performed By: #### C RE, GFR #### [address] [address] Glucose [Mass/Vol] 205 mg/dL High 83-110 [facility] ([place] Comment on above: Performed By: #### C RE, GFR #### [address] [address] Potassium [Moles/Vol] 4.6 mmol/L Normal 3.5-5.1 [facility] ([place]) Comment on above: Performed By: #### C RE, GFR #### [address] [address] Sodium [Moles/Vol] 145 mmol/L Normal 136-145 [facility] ([place] Comment on above: Performed By: #### C RE, GFR #### [address] [address] Total Protein 7.3 G/dL Normal 6.4-8.2 [facility] ([place] Comment on above: Performed By: #### C RE, GFR #### [address] [address] Urea nitrogen [Mass/Vol] 28 mg/dL High 7-18 [facility] ([place] Comment on above: Performed By: #### C RE, GFR #### [address] [address] CRPon 07-13-2023 C-Reactive Protein 2.1 mg/dL High 0.0-0.3 [facility] ([place] Comment on above: Performed By: #### C RE, GFR #### [address] [address] ESRon 07-13-2023 Erythrocyte Sed Rate 27 mm/hr Normal 0-30 [facility] ([place] Comment on above: Performed By: #### C RE, GFR #### [address] [address] FOLon 07-13-2023 Folate >48.00 High 5.38-24.00 [facility] ([place]) Comment on above: Performed By: #### C RE, GFR #### [address] [address] FT4on 07-13-2023 Free T4 [Mass/Vol] 0.97 ng/dL Normal 0.76-1.46 [facility] ([place] Comment on above: Performed By: #### C RE, GFR #### [address] [address] LIPIDon 07-13-2023 Cholesterol [Mass/Vol] 115 mg/dL Normal 0-200 [facility] ([place]) Comment on above: Result Comment: Chol esterol Reference Interval: Less than 200 Desirable 200-239 Borderline high risk 240 and above High risk Performed By: #### C RE, GFR #### [address] [address] Cholesterol in HDL [Mass/Vol] 42 mg/dL Normal 40-60 [facility] ([place] Comment on above: Performed By: #### C RE, GFR #### [place] [address] Cholesterol in LDL [Mass/Vol] 49 mg/dL Normal 0-130 [facility] ([place] Comment on above: Performed By: #### C RE, GFR #### [address] [address] Triglyceride [Mass/Vol] 120 mg/dL Normal 0-150 [facility] ([place]) Comment on above: Result Comment: Trig lyceride Reference Interval: Less than 150 Normal 150-199 Borderline high risk 200-499 High risk 500 or higher Very high risk Performed By: #### C RE, GFR #### [address] [address] PTHon 07-13-2023 PTH, Intact 60.7 pg/mL Normal 18.5-88.0 [facility] ([place] Comment on above: Performed By: #### C RE, GFR #### [address] [address] TSHon 07-13-2023 TSH Qn 1.67 m[IU]/L Normal 0.36-3.74 [facility] ([place]) Comment on above: Performed By: #### C RE, GFR #### [place] [address] [place], [place] [address] VIDHon 07-13-2023 Vit. D 25-Hydroxy 54.1 ng/mL Normal [facility] ([place]) Comment on above: Result Comment: Inte rpretive Values Based on Total 25(OH) Vitamin D: Deficient <20 ng/mL Insufficient 20 - <30 ng/mL Sufficient 30-100 ng/mL Performed By: #### C RE, GFR #### [address] [address] .GFRon 06-09-2023 GFR 44 ml/min/1.73sqm Normal [facility] ([place]) Comment on above: Result Comment: GFR [...] Performed By: #### G FR, PBNP, BMP ####[place] [address] [place], [place] [address] GFR Non- 37 ml/min/1.73sqm Normal [facility] ([place]) Comment on above: Result Comment: GFR [...] mL/min/1.73 square meters Performed By: #### AUGUSTO OLSEN BMP ####[address] [place], [place] [address] BMPon 06-09-2023 BUN/Creatinine Ratio 23 ratio Normal 7-27 [facility] [place] Comment on above: Performed By: #### AUGUSTO OLSEN BMP ####[address] [place], [place] [address] Calcium [Mass/Vol] 9.3 mg/dL Normal 8.4-10.2 [facility] ([place] Comment on above: Performed By: #### AUGUSTO OLSEN BMP ####[address] [place], [place] [address] Chloride [Moles/Vol] 102 mmol/L Normal 98-107 [facility] ([place] Comment on above: Performed By: #### AUGUSTO OLSEN BMP ####[address] [place], [place] [address] CO2 [Moles/Vol] 28 mmol/L Normal 23-31 [facility] ([place] Comment on above: Performed By: #### AUGUSTO OLSEN BMP ####[address] [place], [place] [address] Creatinine [Mass/Vol] 1.42 mg/dL High 0.55-1.02 [facility] ([place]) Comment on above: Performed By: #### AUGUSTO OLSEN BMP ####[address] [place], [place] [address] Electrolyte Balance 10.0 mEq/L Normal 4.0-15.0 [facility] ([place]) Comment on above: Performed By: #### AUGUSTO OLSEN BMP ####[address] [place], [place] [address] Glucose [Mass/Vol] 239 mg/dL High 83-110 [facility] ([place] Comment on above: Performed By: #### AUGUSTO OLSEN BMP ####[address] [place], [place] [address] Potassium [Moles/Vol] 4.3 mmol/L Normal 3.5-5.1 [facility] ([place]) Comment on above: Performed By: #### AUGUSTO OLSEN BMP ####[address] [place], [place] [address] Sodium [Moles/Vol] 140 mmol/L Normal 136-145 [facility] ([place] Comment on above: Performed By: #### AUGUSTO OLSEN BMP ####[address] [place], [place] [address] Urea nitrogen [Mass/Vol] 33 mg/dL High 7-18 [facility] ([place] Comment on above: Performed By: #### AUGUSTO OLSEN BMP ####[address] [place], [place] [address] LABORATORYOrdered By: SYSTEM SYSTEM on 06-09-2023 Calcium [...] B (Bld) [Mass/Vol] 588 pg/mL High 0-125 [facility] ([place]) Comment on above: Result Comment: NT-p roBNP results of less than 300 pg/mL effectively rules out acute congestive heart failure with 99% negative predictive value. Performed By: #### G FR, AUGUSTO, BMP ####[address] [place] [address] LABORATORYOrdered By: SYSTEM SYSTEM on 12-10-2022 Calcium [...] Mixed growth consistent with normal urogenital demarco. [facility] Work Phone: LABORATORYOrdered By: SYSTEM SYSTEM [...] Code AH Auto Viro/Sero SS B. parapertussis [id number] DNA ENRIQUE+non-probe Ql (Nph) Not Detected *NA* [...] 27.0 - 33.0 pg Workflow SS MCHC 33.7 G/dL Invalid Interpretation Code 32.0 - 36.0 G/dL Workflow SS MCV (RBC) [Entitic vol] 91.0 [...] AH ADM SS Urea nitrogen/Creatinine [Mass ratio] 16.5 [...] Informationon 08-19 Culture Urine Culture results pending. [facility] Work Phone: Microscopic examination of blood, culture Culture has been received in lab and is no growth to date. Routine cultures are held for 5 days. [facility] Work Phone: LABORATORYOrdered By: Ju Griffin [...] UNIT FOR CONDITION OF INTEREST:FIND:PT:^KAROL T:ORD: No (05/22/22 2:10 PM) Invalid Interpretation [...] Viro/Sero SS FIRST TEST FOR CONDITION OF INTEREST:FIND:PT:^KAROL T:ORD: No (05/22/22 2:10 PM) Invalid Interpretation Code AH Auto Viro/Sero SS FLUAV RNA ENRIQUE+non-probe Ql (Nph) Not Detected *NA* (05/22/22 2:10 PM) Invalid Interpretation Code Not Detected AH Auto Viro/Sero SS FLUBV RNA ENRIQUE+non-probe Ql (Nph) Not Detected *NA* (05/22/22 2:10 PM) Invalid Interpretation Code Not Detected AH Auto Viro/Sero SS HAS SYMPTOMS RELATED TO CONDITION OF INTEREST:FIND:PT:^KAROL T:ORD: No (05/22/22 2:10 PM) Invalid Interpretation [...] Routine cultures are held for 5 days. [facility] Work Phone: LABORATORYOrdered By: Geoffrey Tellez [...] 27 ratio AO ADM SS LABORATORYOrdered By: [employer] SYSTEM on 05-01-2022 GFR 48 ml/min/1.73sqm Invalid [...] the ages of 18-89 years. LABORATORYOrdered By: [employer] SYSTEM on 03-24-2022 Cortisol [Mass/Vol] 25.0 ug/dL [...] Glucose Testing Reason Routine (12/25/21 10:58 AM) [facility] Work Phone: Glucose [Mass/Vol] 159 mg/dL Invalid Interpretation Code 82 - 115 mg/dL [facility] Work Phone: Blood Glucose Testing Reason Routine (12/25/21 6:53 AM) [facility] Work Phone: Glucose [Mass/Vol] 112 mg/dL Invalid Interpretation Code 82 - 115 mg/dL [facility] Work Phone: LABORATORYOrdered By: SYSTEM SYSTEM [...] Glucose Testing Reason Routine (12/24/21 9:09 PM) [facility] Work Phone: Glucose [Mass/Vol] 151 mg/dL Invalid Interpretation Code 82 - 115 mg/dL [facility] Work Phone: LABORATORYOrdered By: SYSTEM SYSTEM [...] Remisol SS Natriuretic peptide.B prohormone N-Terminal [Mass/Vol] 79608 pg/mL Invalid Interpretation Code 0 - 900 [...] Invalid Interpretation Code 0 - 30 mm/hr Manual Heme SS LABORATORYOrdered By: Libertad Corral [...] /dL AH Auto Urine SS LABORATORYOrdered By: Ellie Alfonso on 12-23-2021 ADMITTED TO INTENSIVE CARE UNIT FOR CONDITION OF INTEREST:FIND:PT:^PATIEN T:ORD: No (12/23/21 9:48 PM) Invalid Interpretation Code AO Auto Urine SS EMPLOYED IN A HEALTHCARE SETTING:FIND:PT:^PATIENT :ORD: No (12/23/21 9:48 PM) Invalid Interpretation Code AO Auto Urine SS Fibrin D-dimer DDU (PPP) [Mass/Vol] 583 ng/mL D-DU Invalid Interpretation Code 0 - 230 ng/mL D-DU AO Coag SS FIRST TEST FOR CONDITION OF INTEREST:FIND:PT:^PATIEN T:ORD: No (12/23/21 9:48 PM) Invalid Interpretation Code AO Auto Urine SS HAS SYMPTOMS RELATED TO CONDITION OF INTEREST:FIND:PT:^PATIEN T:ORD: Yes (12/23/21 9:48 PM) Invalid Interpretation [...] Invalid Interpretation Code 82 - 115 mg/dL [facility] Work Phone: Blood Glucose Testing Reason Routine (12/05/21 8:07 AM) [facility] Work Phone: Glucose [Mass/Vol] 160 mg/dL Invalid Interpretation Code 82 - 115 mg/dL [facility] Work Phone: LABORATORYOrdered By: SYSTEM SYSTEM [...] Glucose Testing Reason Routine (12/04/21 9:52 PM) [facility] Work Phone: Glucose [Mass/Vol] 112 mg/dL Invalid Interpretation Code 82 - 115 mg/dL [facility] Work Phone: LABORATORYOrdered By: Sanford Stiles on 12-04-2021 Blood Glucose Testing Reason Routine (12/04/21 4:08 PM) [facility] Work Phone: LABORATORYOrdered By: [employer] SYSTEM on 12-04-2021 Anisocytosis Ql (Bld) Slight [...] Invalid Interpretation Code 2.25 - 8.10 10^3/mcL Remisol SS Neutrophils/100 WBC (Bld) 44.7 % Invalid Interpretation Code 50.0 - 75.0 % AH Remisol SS LABORATORYOrdered By: Vee Matias on 12-01-2021 Barometric Pressure 717 mm[Hg] Invalid Interpretation Code Auto Chem SS Base excess Calc (Bld) [Moles/Vol] 4.7 mmol/L Invalid Interpretation Code Auto Chem SS CO2 (Bld) [Partial pressure] 35.7 mm[Hg] Invalid Interpretation Code 32.0 - 46.0 mm Hg Auto Chem SS CO2 [Moles/Vol] 28.9 mmol/L [...] D3 [Mass/Vol] 38.4 ng/mL Invalid Interpretation Code AH ADM SS Iron [Mass/Vol] 47 ug/dL Invalid [...] Trace mg/dL Invalid Interpretation Code Negativemg/ dL AH Auto Urine SS UA RBC LOADED [...] Blood Culture: No Growth at 5 days. [facility] Work Phone: LABORATORYOrdered By: SYSTEM SYSTEM [...] Code AH BB Auto SS LABORATORYOrdered By: [employer] SYSTEM on 11-27-2021 CRP [Mass/Vol] 5.2 mg/dL [...] date and time [id number] Invalid Interpretation Code AH Auto Viro/Sero SS [...] Blood Culture: No Growth at 5 days. [facility] Work Phone: Culture Urine No growth at 48 hours. [facility] Work Phone: LABORATORYOrdered By: Yanna navarrete [...] Coccidioides Ab, IgM 0.1 Invalid Interpretation Code [facility] Comment on above: Result Comment: Refe [...] represented in the EDNA tests. Performed By: [email or web address] [address] [place] [id number] Healthcare Educator: Nicolette Bolton MD LABORATORYOrdered By: SYSTEM SYSTEM [...] Comment on above: Result Comment: [place] [id number] FLU B PCR Negative 5 (11/22/21 6:28 AM) Invalid Interpretation Code Negative AH Auto Viro/Sero SS Comment on above: Result Comment: [place] [id number] Hospitalized Yes (11/22/21 6:28 AM) Invalid Interpretation [...] Comment on above: Result Comment: [place] s [id number] SARS-CoV-2 (COVID-19) RNA ENRIQUE+probe Ql (Unsp spec) Negative 3 (11/22/21 6:28 AM) Invalid Interpretation Code Negative AH Auto Viro/Sero SS Comment on above: Result Comment: [place] s [id number] Symptomatic as Defined by CDC Yes (11/22/21 [...] respiratory demarco present. Sensitivity testing not indicated. [facility] Work Phone: Comment on above: Requests for Mycopla sma, Legionella, Fungi, Mycobacteria, Chlamydia, and Viruses require ordering of those individual tests. GS Rare Epithelial cell s Rare Polymorphonuclear cells No organisms seen. [facility] Work Phone: Comment on above: Requests for Mycopla sma, Legionella, Fungi, Mycobacteria, Chlamydia, and Viruses require ordering of those individual tests. Culture Urine No growth at 48 hours. [facility] Work Phone: Legionella Urine Ag Presumptive negative for L. pneumophila serogroup 1 antigen in urine, suggesting no recent or current infection. Legionnaire's disease cannot be ruled out since other serogroups and species may also cause disease. [facility] Work Phone: Streptococcus Pneumoniae Urine Antig Presumptive negative for pneumococcal pneumonia, suggesting no current or recent pneumococcal infection. Infection due to Strep pneumoniae cannot be ruled out since the antigen present in the sample may be below the detection limit of the test. [facility] Work Phone: Comment on above: This test has not be en evaluated on patients taking antibiotics for greater than 24 hours or on patients who have recently completed an antibiotic regimen. The accuracy of this test has not been proven in young children. Microscopic examination of blood, culture Blood Culture: No Growth at 5 days. [facility] Work Phone: LABORATORYOrdered By: Ellie Alfonso on 11-21-2021 ADMITTED TO INTENSIVE CARE UNIT FOR CONDITION OF INTEREST:FIND:PT:^PATIEN T:ORD: No (11/21/21 [...] SURGICAL PATHOLOGYon 020 SURGICAL PATHOLOGY Specimen #: [id number] Submitting Physician: RADHA WEIR M.D. FINAL [...] in one cassette. Gross examination performed at [facility], [address] [place] [address] JT 04/09/2020 10:54:28 PM Date of Report: 04/10/2020 Date of Procedure: 04/09/2020 Date of Receipt: 04/09/2020 Submitted by: RADHA WEIR M.D. Location: Diagnostic interpretation performed at [place] [address]. CLIA Number: [id number] [facility] Reference Lab Comment on above: Performed By: #### S #### See report for performing lab information. SURGICAL PATHOLOGYon 020 SURGICAL PATHOLOGY Specimen #: [id number] Submitting Physician: DIPTI GONZALEZ FINAL DIAGNOSIS A. Skin, right shoulder, shave biopsy - Basal cell carcinoma, superficial type, see comment. SDB/cj 01/17/2020 COMMENT The histologic features are compatible with a recurrent basal cell carcinoma. Fadi D. Will, M.D. (Electronic Signature) _ SPECIMEN SUBMITTED A: [...] in one cassette. Gross examination performed at [facility], [address] [place] [address] 01/16/2020 11:35:43 PM Date of Report: 01/17/2020 Date of Procedure: 01/16/2020 Date of Receipt: 01/16/2020 Submitted by: DIPTI GONZALEZ Location: Diagnostic interpretation performed at [place] [address]. CLIA Number: [id number] Normal [facility] Reference Lab Comment on above: Performed By: #### S #### See report for performing lab information. Vital Signs Date Time Vital Sign Value Performing Clinician Facility 09-17-2025 00:25-0400 Body temperature 98.8 [degF] Dr. Marci Lopez DO Work Phone: [facility] 09-17-2025 00:25-0400 Diastolic blood pressure 75 mm[Hg] Dr. Marci Lopez DO Work Phone: [facility] 09-17-2025 00:25-0400 Heart rate 91 /min Dr. Marci Lopez DO Work Phone: [facility] 09-17-2025 00:25-0400 Respiratory rate 16 /min Dr. Marci Lopez DO Work Phone: [facility] 09-17-2025 00:25-0400 SaO2% (BldA) [Mass fraction] 98 % Dr. Marci Lopez DO Work Phone: 0(118)[phone] [place] [address] 09-17-2025 00:25-0400 Systolic blood pressure 144 mm[Hg] Dr. Marci Lopez DO Work Phone: 5(967)473-850470 [address] 09-16-2025 19:29-0400 Body mass index (BMI) [Ratio] 19.7 kg/m2 Dr. Marci Lopez DO Work Phone: 2(008)[phone] [place] [address] 09-16-2025 19:29-0400 Body weight 58.[address] Marci Lopez DO Work Phone: 9(687)827-868370 [address] 09-16-2025 19:07-0400 Body height 172.[address] Marci Lopez DO Work Phone: 8(094)760-294870 [address] 09-03-2025 14:27-0400 Body mass index (BMI) [Ratio] 18.8 kg/m2 Dr. Marci Lopez DO Work Phone: 9(083)071-964470 [address] 09-03-2025 14:27-0400 Body weight 56.[address] Marci Lopez DO Work Phone: 7(661)126-531670 [address] 09-03-2025 14:27-0400 Diastolic blood pressure 68 mm[Hg] Dr. Marci Lopez DO Work Phone: 9(296)631-490970 [address] 09-03-2025 14:27-0400 Heart rate 76 /min Dr. Marci Lopez DO Work Phone: 5(850)634-363270 [address] 09-03-2025 14:27-0400 Systolic blood pressure 132 mm[Hg] Dr. Marci Lopez DO Work Phone: 8(723)420-166370 [address] 08-06-2025 15:22-0400 Body height 172.[address] Marci Lopez DO Work Phone: 8(900)651-578570 [address] 08-06-2025 15:22-0400 Body mass index (BMI) [Ratio] 18.8 kg/m2 Dr. Marci Lopez DO Work Phone: [facility] 08-06-2025 15:22-0400 Body weight 56.[address] Marci Lopez DO Work Phone: [facility] 08-06-2025 15:22-0400 Diastolic blood pressure 87 mm[Hg] Dr. Marci Lopez DO Work Phone: [facility] 08-06-2025 15:22-0400 Heart rate 76 /min Dr. Marci Lopez DO Work Phone: 1(147)021-373370 [address] 08-06-2025 15:22-0400 Systolic blood pressure 130 mm[Hg] Dr. Marci Lopez DO Work Phone: 1(153)610-739670 [address] 07-16-2025 12:41-0400 Body weight 54.[address] Marci Lopez DO Work Phone: 4(471)170-316345 [place] [address] 07-16-2025 12:41-0400 Heart rate 84 /min Dr. Marci Lopez DO Work Phone: 5(408)937-775870 [address] 07-16-2025 12:41-0400 Inhaled oxygen flow rate 2 L/min Dr. Marci Lopez DO Work Phone: [facility] 07-16-2025 12:41-0400 SaO2% (BldA) [Mass fraction] 94 % Dr. Marci Lopez DO Work Phone: 3(372)890-617345 [place] [address] 07-12-2025 07:05-0400 Body mass index (BMI) [Ratio] 18.8 kg/m2 Dr. Marci Lopez DO Work Phone: 3(359)262-266070 [address] 07-12-2025 07:05-0400 Body temperature 97.7 [degF] Dr. Marci Lopez DO Work Phone: 9(124)843-168245 [place] [address] 07-12-2025 07:05-0400 Body weight 56.[address] Marci Lopez DO Work Phone: 5(619)364-663545 [place] [address] 07-12-2025 07:05-0400 Diastolic blood pressure 75 mm[Hg] Dr. Marci Lopez DO Work Phone: [facility] 07-12-2025 07:05-0400 Heart rate 85 /min Dr. aMrci Lopez DO Work Phone: [facility] 07-12-2025 07:05-0400 Respiratory rate 18 /min Dr. Marci Lopez DO Work Phone: [facility] 07-12-2025 07:05-0400 SaO2% (BldA) [Mass fraction] 95 % Dr. Marci Lopez DO Work Phone: [facility] 07-12-2025 07:05-0400 Systolic blood pressure 132 mm[Hg] Dr. Marci Lopez DO Work Phone: [facility] 07-10-2025 09:37-0400 Body temperature 98.4 [degF] Leonel Lochan SPICE BLENDER.RANGER AIDE Work Phone: [facility] 07-10-2025 09:37-0400 Diastolic blood pressure 75 mm[Hg] Leonel Lochan SPICE BLENDER.RANGER AIDE Work Phone: [facility] 07-10-2025 09:37-0400 Heart rate 93 /min Leonel Lochan SPICE BLENDER.RANGER AIDE Work Phone: [facility] 07-10-2025 09:37-0400 Respiratory rate 20 /min Leonel Lochan SPICE BLENDER.RANGER AIDE Work Phone: [facility] 07-10-2025 09:37-0400 SaO2% (BldA) [Mass fraction] 97 % Leonel Lochan SPICE BLENDER.RANGER AIDE Work Phone: [facility] 07-10-2025 09:37-0400 Systolic blood pressure 164 mm[Hg] Leonel Lochan SPICE BLENDER.RANGER AIDE Work Phone: [facility] 07-04-2025 09:00-0400 Body temperature 98.6 [degF] Dr. Marci Lopez DO Work Phone: [facility] 07-04-2025 09:00-0400 Diastolic blood pressure 63 mm[Hg] Dr. Marci Lopez DO Work Phone: [facility] 07-04-2025 09:00-0400 Heart rate 67 /min Dr. Marci Lopez DO Work Phone: [facility] 07-04-2025 09:00-0400 Inhaled oxygen flow rate 2 L/min Dr. Marci Lopez DO Work Phone: 3(935)121-116070 [address] 07-04-2025 09:00-0400 Respiratory rate 16 /min Dr. Marci Lopez DO Work Phone: 7(907)[phone] [place] [address] 07-04-2025 09:00-0400 SaO2% (BldA) [Mass fraction] 99 % Dr. Marci Lopez DO Work Phone: 9(690)[phone] [place] [address] 07-04-2025 09:00-0400 Systolic blood pressure 136 mm[Hg] Dr. Marci Lopez DO Work Phone: 2(712)933-788970 [address] 07-02-2025 14:04-0400 Body height 172.[address] Marci Lopez DO Work Phone: 7(931)457-470970 [address] 07-02-2025 14:04-0400 Body weight 53.[address] Marci Lopez DO Work Phone: [facility] [facility] 07-01-2025 21:16-0400 Body mass index (BMI) [Ratio] 18 kg/m2 Dr. Marci Lopez DO Work Phone: [phone] [address] 07-01-2025 20:00-0400 Diastolic blood pressure 70 mm[Hg] Dr. Marci Lopez DO Work Phone: [facility] 07-01-2025 20:00-0400 Heart rate 65 /min Dr. Marci Lopez DO Work Phone: [facility] 07-01-2025 20:00-0400 Respiratory rate 16 /min Dr. Marci Lopez DO Work Phone: [facility] 07-01-2025 20:00-0400 SaO2% (BldA) [Mass fraction] 98 % Dr. Marci Lopez DO Work Phone: [facility] 07-01-2025 20:00-0400 Systolic blood pressure 165 mm[Hg] Dr. Marci Lopez DO Work Phone: [facility] 07-01-2025 19:16-0400 Body temperature 98.3 [degF] Dr. Marci Lopez DO Work Phone: [facility] 07-01-2025 19:00-0400 Inhaled oxygen flow rate 3 L/min Dr. Marci Lopez DO Work Phone: [facility] 07-01-2025 16:38-0400 Body height 172.[address] Marci Lopez DO Work Phone: [facility] 07-01-2025 16:38-0400 Body mass index (BMI) [Ratio] 19 kg/m2 Dr. Marci Lopez DO Work Phone: [facility] 07-01-2025 16:38-0400 Body weight 56.[address] Marci Lopez DO Work Phone: [facility] 06-11-2025 15:40-0400 Body temperature 98.6 [degF] Dr. Marci Lopez DO Work Phone: [facility] 06-11-2025 15:40-0400 Diastolic blood pressure 59 mm[Hg] Dr. Marci Lopez DO Work Phone: [facility] 06-11-2025 15:40-0400 Heart rate 66 /min Dr. Marci Lopez DO Work Phone: [facility] 06-11-2025 15:40-0400 Respiratory rate 18 /min Dr. Marci Lopez DO Work Phone: [facility] 06-11-2025 15:40-0400 SaO2% (BldA) [Mass fraction] 98 % Dr. Marci Lopez DO Work Phone: [facility] 06-11-2025 15:40-0400 Systolic blood pressure 130 mm[Hg] Dr. Marci Lopez DO Work Phone: [facility] 06-11-2025 09:06-0400 Body temperature 98.1 [degF] Dr. Marci Lopez DO Work Phone: [facility] 06-11-2025 09:06-0400 Diastolic blood pressure 63 mm[Hg] Dr. Marci Lopez DO Work Phone: [facility] 06-11-2025 09:06-0400 Heart rate 77 /min Dr. Marci Lopez DO Work Phone: [facility] 06-11-2025 09:06-0400 Respiratory rate 18 /min Dr. Marci Lopez DO Work Phone: [facility] 06-11-2025 09:06-0400 SaO2% (BldA) [Mass fraction] 98 % Dr. Marci Lopez DO Work Phone: [facility] 06-11-2025 09:06-0400 Systolic blood pressure 113 mm[Hg] Dr. Marci Lopez DO Work Phone: [facility] 06-11-2025 08:00-0400 Inhaled oxygen flow rate 2 L/min Dr. Marci Lopez DO Work Phone: [facility] 06-07-2025 13:19-0400 Body height 172.[address] Marci Lopez DO Work Phone: [facility] 06-07-2025 13:19-0400 Body mass index (BMI) [Ratio] 19.5 kg/m2 Dr. Marci Lopez DO Work Phone: [facility] 06-07-2025 13:19-0400 Body weight 58.[address] Marci Lopez DO Work Phone: [facility] 06-02-2025 14:09-0400 Inhaled oxygen flow rate 2 L/min Dr. Marci Lopez DO Work Phone: [facility] 06-02-2025 14:09-0400 SaO2% (BldA) [Mass fraction] 97 % Dr. Marci Lopez DO Work Phone: [facility] 06-02-2025 14:00-0400 Body temperature 98.4 [degF] Dr. Marci Lopez DO Work Phone: [facility] 06-02-2025 14:00-0400 Diastolic blood pressure 53 mm[Hg] Dr. Marci Lopez DO Work Phone: [facility] 06-02-2025 14:00-0400 Heart rate 69 /min Dr. Marci Lopez DO Work Phone: [facility] 06-02-2025 14:00-0400 Respiratory rate 12 /min Dr. Marci Lopez DO Work Phone: [facility] 06-02-2025 14:00-0400 Systolic blood pressure 106 mm[Hg] Dr. Marci Lopez DO Work Phone: [facility] 06-02-2025 10:33-0400 Body height 172.[address] Marci Lopez DO Work Phone: [facility] 06-02-2025 10:33-0400 Body mass index (BMI) [Ratio] 20.5 kg/m2 Dr. Marci Lopez DO Work Phone: [facility] 06-02-2025 10:33-0400 Body weight 61.[address] Marci Lopez DO Work Phone: [facility] 05-29-2025 15:17-0400 Body height 172.[address] Marci Lopez DO Work Phone: [facility] 05-29-2025 15:17-0400 Body mass index (BMI) [Ratio] 19.9 kg/m2 Dr. Marci Lopez DO Work Phone: [facility] 05-29-2025 15:17-0400 Body weight 59.[address] Marci Lopez DO Work Phone: [facility] 05-29-2025 15:17-0400 Diastolic blood pressure 57 mm[Hg] Dr. Marci Lopez DO Work Phone: [facility] 05-29-2025 15:17-0400 Heart rate 80 /min Dr. Marci Lopez DO Work Phone: [facility] 05-29-2025 15:17-0400 Respiratory rate 18 /min Dr. Marci Lopez DO Work Phone: [facility] 05-29-2025 15:17-0400 Systolic blood pressure 99 mm[Hg] Dr. Marci Lopez DO Work Phone: [facility] 05-22-2025 20:53-0400 Body temperature 98.5 [degF] Dr. Marci Lopez DO Work Phone: [facility] 05-22-2025 20:53-0400 Diastolic blood pressure 56 mm[Hg] Dr. Marci Lopez DO Work Phone: [facility] 05-22-2025 20:53-0400 Heart rate 69 /min Dr. Marci Lopez DO Work Phone: [facility] 05-22-2025 20:53-0400 Respiratory rate 16 /min Dr. Marci Lopez DO Work Phone: [facility] 05-22-2025 20:53-0400 SaO2% (BldA) [Mass fraction] 94 % Dr. Marci Lopez DO Work Phone: [facility] 05-22-2025 20:53-0400 Systolic blood pressure 111 mm[Hg] Dr. Marci Lopez DO Work Phone: [facility] 05-22-2025 19:08-0400 Inhaled oxygen flow rate 2 L/min Dr. Marci Lopez DO Work Phone: [facility] 05-22-2025 14:39-0400 Body height 172.[address] Marci Lopez DO Work Phone: [facility] 05-22-2025 14:39-0400 Body mass index (BMI) [Ratio] 21.1 kg/m2 Dr. Marci Lopez DO Work Phone: [facility] 05-22-2025 14:39-0400 Body weight 62.[address] Marci Lopez DO Work Phone: [facility] 05-03-2025 10:08-0400 Heart rate 66 /min Dr. Marci Lopez DO Work Phone: [facility] 05-03-2025 10:07-0400 Diastolic blood pressure 59 mm[Hg] Dr. Marci Lopez DO Work Phone: [facility] 05-03-2025 10:07-0400 Systolic blood pressure 112 mm[Hg] Dr. Marci Lopez DO Work Phone: [facility] 05-03-2025 08:22-0400 Body temperature 98.4 [degF] Dr. Marci Lopez DO Work Phone: [facility] 05-03-2025 08:22-0400 Respiratory rate 16 /min Dr. Marci Lopez DO Work Phone: [facility] 05-03-2025 08:22-0400 SaO2% (BldA) [Mass fraction] 94 % Dr. Marci Lopez DO Work Phone: [facility] 05-01-2025 14:36-0400 Body mass index (BMI) [Ratio] 20.6 kg/m2 Dr. Marci Lopez DO Work Phone: [facility] 05-01-2025 14:36-0400 Body weight 61.[address] Marci Lopez DO Work Phone: [facility] 04-25-2025 20:00-0400 Heart rate 64 /min Dr. Marci Lopez DO Work Phone: [facility] 04-25-2025 16:36-0400 Body mass index (BMI) [Ratio] 20.4 kg/m2 Dr. Marci Lopez DO Work Phone: [facility] 04-25-2025 16:36-0400 Body weight 60.[address] Marci Lopez DO Work Phone: [facility] 04-25-2025 15:10-0400 Body height 172.[address] Marci Lopez DO Work Phone: [facility] 04-25-2025 09:01-0400 Body temperature 97.9 [degF] Dr. Marci Lopez DO Work Phone: [facility] 04-25-2025 09:01-0400 Diastolic blood pressure 51 mm[Hg] Dr. Marci Lopez DO Work Phone: [facility] 04-25-2025 09:01-0400 Respiratory rate 16 /min Dr. Marci Lopez DO Work Phone: [facility] 04-25-2025 09:01-0400 Systolic blood pressure 111 mm[Hg] Dr. Marci Lopez DO Work Phone: [facility] 04-25-2025 08:14-0400 Body temperature 97.4 [degF] Dr. Mraci Lopez DO Work Phone: [facility] 04-25-2025 08:14-0400 Diastolic blood pressure 57 mm[Hg] Dr. Marci Lopez DO Work Phone: [facility] 04-25-2025 08:14-0400 Heart rate 63 /min Dr. Marci Lopez DO Work Phone: [facility] 04-25-2025 08:14-0400 Respiratory rate 14 /min Dr. Marci Lopez DO Work Phone: [facility] 04-25-2025 08:14-0400 SaO2% (BldA) [Mass fraction] 94 % Dr. Marci Lopez DO Work Phone: [facility] 04-25-2025 08:14-0400 Systolic blood pressure 108 mm[Hg] Dr. Marci Lopez DO Work Phone: [facility] 04-25-2025 06:48-0400 Body mass index (BMI) [Ratio] 45 kg/m2 Dr. Marci Lopez DO Work Phone: [facility] 04-25-2025 06:48-0400 Body weight 134.[address] Marci Lopez DO Work Phone: [facility] 04-20-2025 14:41-0400 Body temperature 98.7 [degF] Dr. Marci Lopez DO Work Phone: [facility] 04-20-2025 14:41-0400 Diastolic blood pressure 57 mm[Hg] Dr. Marci Lopez DO Work Phone: [facility] 04-20-2025 14:41-0400 Heart rate 60 /min Dr. Marci Lopez DO Work Phone: [facility] 04-20-2025 14:41-0400 Respiratory rate 16 /min Dr. Marci Lopez DO Work Phone: [facility] 04-20-2025 14:41-0400 SaO2% (BldA) [Mass fraction] 97 % Dr. Marci Lopez DO Work Phone: [facility] 04-20-2025 14:41-0400 Systolic blood pressure 136 mm[Hg] Dr. Marci Lopez DO Work Phone: [facility] 04-19-2025 13:18-0400 Body height 172.[address] Marci Lopez DO Work Phone: [facility] 04-19-2025 13:18-0400 Body mass index (BMI) [Ratio] 20.7 kg/m2 Dr. Marci Lopez DO Work Phone: [phone] [place] [address] 04-19-2025 13:18-0400 Body weight [address] Marci Lopez DO Work Phone: [phone] [place] [address] 04-19-2025 12:00-0400 Diastolic blood pressure 75 mm[Hg] Dr. Marci Lopez DO Work Phone: [facility] 04-19-2025 12:00-0400 Heart rate 77 /min Dr. Marci Lopez DO Work Phone: [phone] [place] [address] 04-19-2025 12:00-0400 Respiratory rate 18 /min Dr. Marci Lopez DO Work Phone: [facility] 04-19-2025 12:00-0400 SaO2% (BldA) [Mass fraction] 96 % Dr. Marci Lopez DO Work Phone: [facility] 04-19-2025 12:00-0400 Systolic blood pressure 174 mm[Hg] Dr. Marci Lopez DO Work Phone: [facility] 04-19-2025 11:30-0400 Body temperature 98 [degF] Dr. Marci Lopez DO Work Phone: [facility] 04-19-2025 03:35-0400 Body height 172.[address] Marci Lopez DO Work Phone: [facility] 04-19-2025 03:35-0400 Body mass index (BMI) [Ratio] 21.6 kg/m2 Dr. Marci Lopez DO Work Phone: [facility] 04-19-2025 03:35-0400 Body weight 64.[address] Marci Lopez DO Work Phone: [facility] 04-04-2025 12:35-0400 Diastolic blood pressure 47 mm[Hg] Mri (1.5t) [facility] 04-04-2025 12:35-0400 Heart rate 90 /min Mri (1.5t) [facility] Comment on above: pacer taken out of MRI safe mode 04-04-2025 12:35-0400 Respiratory rate 18 /[facility]04-[facility] 12:35-0400 SaO2% (BldA) [Mass fraction] 98 % Mri (1.5t) [facility] 04-04-2025 12:35-0400 Systolic blood pressure 125 mm[Hg] Mri (1.5t) [facility] 03-10-2025 14:00-0400 Diastolic blood pressure 70 mm[Hg] Dr. Marci Lopez DO Work Phone: [facility] 03-10-2025 14:00-0400 Heart rate 60 /min Dr. Marci Lopez DO Work Phone: [facility] 03-10-2025 14:00-0400 Respiratory rate 18 /min Dr. Marci Lopez DO Work Phone: [facility] 03-10-2025 14:00-0400 SaO2% (BldA) [Mass fraction] 97 % Dr. Marci Lopez DO Work Phone: [facility] 03-10-2025 14:00-0400 Systolic blood pressure 151 mm[Hg] Dr. Marci Lopez DO Work Phone: [facility] 03-10-2025 11:28-0400 Body mass index (BMI) [Ratio] 20.9 kg/m2 Dr. Marci Lopez DO Work Phone: [facility] 03-10-2025 11:28-0400 Body weight 62.[address] Marci Lopez DO Work Phone: [facility] 03-10-2025 11:27-0400 Body height 172.[address] Marci Lopez DO Work Phone: [facility] 03-10-2025 11:27-0400 Body temperature 97.8 [degF] Dr. Marci Lopez DO Work Phone: [facility] 02-27-2025 15:22-0400 Body mass index (BMI) [Ratio] 20.78 kg/m2 Leyla Murphy MD Work Phone: [facility] 02-27-2025 15:22-0400 Body weight 62 kg Leyla Murphy MD Work Phone: [facility] 02-27-2025 15:22-0400 SaO2% (BldA) [Mass fraction] 96 % Leyla Murphy MD Work Phone: [facility] 02-13-2025 09:10-0400 Body mass index (BMI) [Ratio] 20.7 kg/m2 Dr. Marci Lopez DO Work Phone: [facility] 02-13-2025 09:10-0400 Body weight 61.[address] Marci Lopez DO Work Phone: [facility] 02-13-2025 09:10-0400 Diastolic blood pressure 67 mm[Hg] Dr. Marci Lopez DO Work Phone: [facility] 02-13-2025 09:10-0400 Systolic blood pressure 107 mm[Hg] Dr. Marci Lopez DO Work Phone: [facility] 01-23-2025 13:16-0500 Body temperature 97.3 [degF] Dr. Marci Lopez DO Work Phone: [facility] 01-23-2025 13:16-0500 Diastolic blood pressure 66 mm[Hg] Dr. Marci Lopez DO Work Phone: [facility] 01-23-2025 13:16-0500 Heart rate 62 /min Dr. Marci Lopez DO Work Phone: [facility] 01-23-2025 13:16-0500 Respiratory rate 16 /min Dr. Marci Lopez DO Work Phone: [facility] 01-23-2025 13:16-0500 SaO2% (BldA) [Mass fraction] 95 % Dr. Marci Lopez DO Work Phone: [facility] 01-23-2025 13:16-0500 Systolic blood pressure 121 mm[Hg] Dr. Marci Lopez DO Work Phone: [facility] 01-18-2025 08:06-0500 Body mass index (BMI) [Ratio] 20 kg/m2 Dr. Marci Lopez DO Work Phone: [facility] 01-18-2025 08:06-0500 Body weight 59.[address] Marci Lopez DO Work Phone: [facility] 01-18-2025 08:06-0500 Diastolic blood pressure 73 mm[Hg] Dr. Marci Lopez DO Work Phone: [facility] 01-18-2025 08:06-0500 Heart rate 97 /min Dr. Marci Lopez DO Work Phone: [facility] 01-18-2025 08:06-0500 Respiratory rate 18 /min Dr. Marci Lopez DO Work Phone: [facility] 01-18-2025 08:06-0500 SaO2% (BldA) [Mass fraction] 97 % Dr. Marci Lopez DO Work Phone: [facility] 01-18-2025 08:06-0500 Systolic blood pressure 114 mm[Hg] Dr. Marci Lopez DO Work Phone: [facility] 12-22-2024 11:30-0500 Diastolic blood pressure 75 mm[Hg] Dr. Marci Lopez DO Work Phone: [facility] 12-22-2024 11:30-0500 Heart rate 85 /min Dr. Marci Lopez DO Work Phone: [facility] 12-22-2024 11:30-0500 Respiratory rate 16 /min Dr. Marci Lopez DO Work Phone: [facility] 12-22-2024 11:30-0500 SaO2% (BldA) [Mass fraction] 99 % Dr. Marci Lopez DO Work Phone: [facility] 12-22-2024 11:30-0500 Systolic blood pressure 117 mm[Hg] Dr. Marci Lopez DO Work Phone: [facility] 12-19-2024 15:14-0500 Body temperature 98 [degF] Dr. Marci Lopez DO Work Phone: [facility] 12-19-2024 15:14-0500 Body weight 60.[address] Marci Lopez DO Work Phone: [facility] 12-19-2024 15:14-0500 Diastolic blood pressure 67 mm[Hg] Dr. Marci Lopez DO Work Phone: [facility] 12-19-2024 15:14-0500 Heart rate 74 /min Dr. Marci Lopez DO Work Phone: [facility] 12-19-2024 15:14-0500 Respiratory rate 16 /min Dr. Marci Lopez DO Work Phone: [facility] 12-19-2024 15:14-0500 SaO2% (BldA) [Mass fraction] 96 % Dr. Marci Lopez DO Work Phone: [facility] 12-19-2024 15:14-0500 Systolic blood pressure 123 mm[Hg] Dr. Marci Lopez DO Work Phone: [facility] 11-28-2024 13:54-0500 Body mass index (BMI) [Ratio] 20 kg/m2 Dr. Marci Lopez DO Work Phone: [facility] 11-28-2024 13:54-0500 Body weight 59.[address] Marci Lopez DO Work Phone: [facility] 11-28-2024 13:54-0500 Diastolic blood pressure 57 mm[Hg] Dr. Marci Lopez DO Work Phone: [facility] 11-28-2024 13:54-0500 Heart rate 85 /min Dr. Marci Lopez DO Work Phone: [facility] 11-28-2024 13:54-0500 Respiratory rate 18 /min Dr. Marci Lopez DO Work Phone: [facility] 11-28-2024 13:54-0500 SaO2% (BldA) [Mass fraction] 96 % Dr. Marci Lopez DO Work Phone: [facility] 11-28-2024 13:54-0500 Systolic blood pressure 92 mm[Hg] Dr. Marci Lopez DO Work Phone: [facility] 11-18-2024 17:16-0500 Body temperature 98.7 [degF] Dr. Marci Lopez DO Work Phone: [facility] 11-18-2024 17:16-0500 Heart rate 62 /min Dr. Marci Lopez DO Work Phone: [facility] 11-18-2024 17:16-0500 Respiratory rate 18 /min Dr. Marci Lopez DO Work Phone: [facility] 11-18-2024 17:16-0500 SaO2% (BldA) [Mass fraction] 97 % Dr. Marci Lopez DO Work Phone: [facility] 11-18-2024 14:20-0500 Diastolic blood pressure 74 mm[Hg] Dr. Marci Lopez DO Work Phone: [facility] 11-18-2024 14:20-0500 Systolic blood pressure 122 mm[Hg] Dr. Marci Lopez DO Work Phone: [facility] 08-01-2024 15:26-0400 Body weight 59.[address] Marci Lopez DO Work Phone: [facility] 05-17-2024 14:39-0400 Body height 172.7 cm Ghazala Gusman MD Work Phone: [facility] 05-17-2024 14:39-0400 Body mass index (BMI) [Ratio] 19.52 kg/m2 Ghazala Gusman MD Work Phone: [facility] 05-17-2024 14:39-0400 Body weight 58.24 kg Ghazala Gusman MD Work Phone: [facility] 05-17-2024 14:39-0400 Diastolic blood pressure 58 mm[Hg] Ghazala Gusman MD Work Phone: [facility] 05-17-2024 14:39-0400 Heart rate 72 /min Ghazala Gusman MD Work Phone: [facility] 05-17-2024 14:39-0400 SaO2% (BldA) [Mass fraction] 97 % Ghazala Gusman MD Work Phone: [facility] 05-17-2024 14:39-0400 Systolic blood pressure 95 mm[Hg] Ghazala Gusman MD Work Phone: [facility] 03-15-2024 09:18-0400 Heart rate 62 /min Dr. Adrienne Byers Work Phone: [facility] 03-15-2024 09:12-0400 Body temperature 97.7 [degF] Dr. Adrienne Byers Work Phone: [facility] 03-15-2024 09:12-0400 Diastolic blood pressure 50 mm[Hg] Dr. Adrienne Byers Work Phone: [facility] 03-15-2024 09:12-0400 Respiratory rate 16 /min Dr. Adrienne Byers Work Phone: [facility] 03-15-2024 09:12-0400 SaO2% (BldA) [Mass fraction] 96 % Dr. Adrienne Byers Work Phone: [facility] 03-15-2024 09:12-0400 Systolic blood pressure 122 mm[Hg] Dr. Adrienne Byers Work Phone: [facility] 03-14-2024 14:00-0400 Body mass index (BMI) [Ratio] 19.8 kg/m2 Dr. Adrienne Byers Work Phone: [facility] 03-14-2024 14:00-0400 Body weight 59.[address] Adrienne Byers Work Phone: [facility] 03-08-2024 12:02-0400 Body height 172.[address] Adrienne Byers Work Phone: [facility] 02-29-2024 09:30-0400 Body temperature 98.5 [degF] Dr. Adrienne Byers Work Phone: [facility] 02-29-2024 09:30-0400 Diastolic blood pressure 63 mm[Hg] Dr. Adrienne Byers Work Phone: [facility] 02-29-2024 09:30-0400 Heart rate 73 /min Dr. Adrienne Byers Work Phone: [facility] 02-29-2024 09:30-0400 Respiratory rate 16 /min Dr. Adrienne Byers Work Phone: [facility] 02-29-2024 09:30-0400 SaO2% (BldA) [Mass fraction] 95 % Dr. Adrienne Byers Work Phone: [facility] 02-29-2024 09:30-0400 Systolic blood pressure 118 mm[Hg] Dr. Adrienne Byers Work Phone: [facility] 02-26-2024 22:00-0400 Inhaled oxygen flow rate 2 L/min Dr. Adrienne Byers Work Phone: [facility] 02-25-2024 13:30-0400 Body height 172.[address] Adrienne Byers Work Phone: [facility] 02-25-2024 13:30-0400 Body weight 58.[address] Adrienne Byers Work Phone: [facility] 02-22-2024 11:00-0400 Body mass index (BMI) [Ratio] 19.5 kg/m2 Dr. Adrienne Byers Work Phone: [facility] 02-21-2024 19:53-0400 Body temperature 98.2 [degF] Dr. Adrienne Byers Work Phone: [facility] 02-21-2024 19:53-0400 Diastolic blood pressure 45 mm[Hg] Dr. Adrienne Byers Work Phone: [facility] 02-21-2024 19:53-0400 Heart rate 66 /min Dr. Adrienne Byers Work Phone: [facility] 02-21-2024 19:53-0400 Respiratory rate 20 /min Dr. Adrienne Byers Work Phone: [facility] 02-21-2024 19:53-0400 SaO2% (BldA) [Mass fraction] 97 % Dr. Adrienne Byers Work Phone: [facility] 02-21-2024 19:53-0400 Systolic blood pressure 105 mm[Hg] Dr. Adrienne Byers Work Phone: [facility] 02-21-2024 15:33-0400 Body mass index (BMI) [Ratio] 20.2 kg/m2 Dr. Adrienne Byers Work Phone: [facility] 02-21-2024 15:33-0400 Body weight 60.[address] Adrienne Byers Work Phone: [facility] 02-21-2024 15:32-0400 Body height 172.[address] Adrienne Byers Work Phone: [facility] 02-19-2024 18:33-0400 Body temperature 98.3 [degF] [facility] 02-19-2024 18:33-0400 Diastolic blood pressure 74 mm[Hg] [facility] 02-19-2024 18:33-0400 Heart rate 76 /min [facility] 02-19-2024 18:33-0400 Respiratory rate 16 /min [facility] 02-19-2024 18:33-0400 SaO2% (BldA) [Mass fraction] 96 % [facility] 02-19-2024 18:33-0400 Systolic blood pressure 127 mm[Hg] [facility] 02-19-2024 15:07-0400 Body height 172.72 cm [facility] 02-19-2024 15:07-0400 Body mass index (BMI) [Ratio] 19.8 kg/m2 [facility] 02-19-2024 15:07-0400 Body weight 59.23 kg [facility] 12-08-2023 18:27-0500 Diastolic blood pressure 66 mm[Hg] Dr. Adrienne Byers Work Phone: [facility] 12-08-2023 18:27-0500 Heart rate 77 /min Dr. Adrienne Byers Work Phone: [facility] 12-08-2023 18:27-0500 Respiratory rate 16 /min Dr. Adrienne Byers Work Phone: [facility] 12-08-2023 18:27-0500 SaO2% (BldA) [Mass fraction] 99 % Dr. Adrienne Byers Work Phone: [facility] 12-08-2023 18:27-0500 Systolic blood pressure 118 mm[Hg] Dr. Adrienne Byers Work Phone: [facility] 12-08-2023 15:46-0500 Body mass index (BMI) [Ratio] 20.7 kg/m2 Dr. Adrienne Byers Work Phone: [facility] 12-08-2023 15:46-0500 Body weight 61.[address] Adrienne Byers Work Phone: [facility] 12-08-2023 13:03-0500 Body height 172.[address] Adrienne Byers Work Phone: [facility] 12-08-2023 13:03-0500 Body temperature 96.7 [degF] Dr. Adrienne Byers Work Phone: [facility] 10-12-2023 13:31-0500 Body mass index (BMI) [Ratio] 21.1 kg/m2 Dr. Adrienne Byers Work Phone: [facility] 10-12-2023 08:40-0500 Body temperature 97.8 [degF] Dr. Adrienne Byers Work Phone: [facility] 10-12-2023 08:40-0500 Diastolic blood pressure 67 mm[Hg] Dr. Adrienne Byers Work Phone: [facility] 10-12-2023 08:40-0500 Heart rate 60 /min Dr. Adrienne Byers Work Phone: [facility] 10-12-2023 08:40-0500 Respiratory rate 14 /min Dr. Adrienne Byers Work Phone: [facility] 10-12-2023 08:40-0500 SaO2% (BldA) [Mass fraction] 100 % Dr. Adrienne Byers Work Phone: [facility] 10-12-2023 08:40-0500 Systolic blood pressure 143 mm[Hg] Dr. Adrienne Byers Work Phone: [facility] 10-12-2023 06:00-0500 Body weight 63.[address] Adrienne Byers Work Phone: [facility] 10-07-2023 15:14-0500 Body height 172.[address] Adrienne Byers Work Phone: [facility] 10-07-2023 15:04-0500 Diastolic blood pressure 93 mm[Hg] Dr. Adrienne Byers Work Phone: [facility] 10-07-2023 15:04-0500 Heart rate 61 /min Dr. Adrienne Byers Work Phone: [facility] 10-07-2023 15:04-0500 Respiratory rate 18 /min Dr. Adrienne Byers Work Phone: [facility] 10-07-2023 15:04-0500 SaO2% (BldA) [Mass fraction] 97 % Dr. Adrienne Byers Work Phone: [facility] 10-07-2023 15:04-0500 Systolic blood pressure 107 mm[Hg] Dr. Adrienne Byers Work Phone: [facility] 10-07-2023 13:04-0500 Body height 172.[address] Adrienne Byers Work Phone: [facility] 10-07-2023 13:04-0500 Body mass index (BMI) [Ratio] 21.2 kg/m2 Dr. Adrienne Byers Work Phone: [facility] 10-07-2023 13:04-0500 Body weight 63.[address] Adrienne Byers Work Phone: [facility] 10-07-2023 12:35-0500 Body temperature 97.8 [degF] Dr. Adrienne Byers Work Phone: [facility] 10-07-2023 09:42-0500 Diastolic blood pressure 47 mm[Hg] Dr. Adrienne Byers Work Phone: [facility] 10-07-2023 09:42-0500 Heart rate 75 /min Dr. Adrienne Byers Work Phone: [facility] 10-07-2023 09:42-0500 Systolic blood pressure 103 mm[Hg] Dr. Adrienne Byers Work Phone: [facility] 10-06-2023 16:00-0500 Body temperature 97.7 [degF] Dr. Adrienne Byers Work Phone: [facility] 10-06-2023 16:00-0500 Respiratory rate 14 /min Dr. Adrienne Byers Work Phone: [facility] 10-06-2023 16:00-0500 SaO2% (BldA) [Mass fraction] 97 % Dr. Adrienne Byers Work Phone: [facility] 10-06-2023 15:02-0500 Body weight 61.[address] Adrienne Byers Work Phone: [facility] 10-05-2023 11:08-0500 Body mass index (BMI) [Ratio] 20.5 kg/m2 Dr. Adrienne Byers Work Phone: [facility] 10-01-2023 14:27-0500 Body mass index (BMI) [Ratio] 20.8 kg/m2 Dr. Adrienne Byers Work Phone: [facility] 10-01-2023 13:40-0500 Body temperature 98.1 [degF] Dr. Adrienne Byers Work Phone: [facility] 10-01-2023 13:40-0500 Diastolic blood pressure 68 mm[Hg] Dr. Adrienne Byers Work Phone: [facility] 10-01-2023 13:40-0500 Heart rate 65 /min Dr. Adrienne Byers Work Phone: [facility] 10-01-2023 13:40-0500 Respiratory rate 18 /min Dr. Adrienne Byers Work Phone: [facility] 10-01-2023 13:40-0500 SaO2% (BldA) [Mass fraction] 97 % Dr. Adrienne Byers Work Phone: [facility] 10-01-2023 13:40-0500 Systolic blood pressure 138 mm[Hg] Dr. Adrienne Byers Work Phone: [facility] 09-29-2023 14:06-0500 Body height 170.[address] Adrienne Byers Work Phone: [facility] 09-29-2023 14:06-0500 Body weight 60.[address] Adrienne Byers Work Phone: [facility] 09-28-2023 22:00-0500 Diastolic blood pressure 77 mm[Hg] [facility] 09-28-2023 22:00-0500 Heart rate 63 /min [facility] 09-28-2023 22:00-0500 Respiratory rate 18 /min [facility] 09-28-2023 22:00-0500 SaO2% (BldA) [Mass fraction] 99 % [facility] 09-28-2023 22:00-0500 Systolic blood pressure 152 mm[Hg] [facility] 09-28-2023 20:41-0500 Body height 170.18 cm [facility] 09-28-2023 20:41-0500 Body mass index (BMI) [Ratio] 21.4 kg/m2 [facility] 09-28-2023 20:41-0500 Body weight 61.9 kg [facility] 09-28-2023 20:00-0500 Body temperature 98.1 [degF] [facility] 08-18-2023 12:08-0400 Body temperature 98.6 [degF] JAXON KUHN MD [facility] 08-18-2023 12:08-0400 Diastolic Blood Pressure Non-Invasive 63 1 JAXON KUHN MD [facility] 08-18-2023 12:08-0400 Heart rate 73 /min JAXON KUHN MD [facility] 08-18-2023 12:08-0400 Respiratory rate 16 /min JAXON KUHN MD [facility] 08-18-2023 12:08-0400 Systolic Blood Pressure Non-Invasive 94 1 JAXON KUHN MD [facility] 08-11-2023 06:42-0400 Body temperature 98.24 [degF] JAXON KUHN MD [facility] 08-11-2023 06:42-0400 Diastolic Blood Pressure Non-Invasive 61 1 JAXON KUHN MD [facility] 08-11-2023 06:42-0400 Heart rate 61 /min JAXON KUHN MD [facility] 08-11-2023 06:42-0400 Respiratory rate 18 /min JAXON KUHN MD [facility] 08-11-2023 06:42-0400 Systolic Blood Pressure Non-Invasive 106 1 JAXON KUHN MD [facility] 08-04-2023 12:09-0400 Body height 172.7 cm JAXON KUHN MD [facility] 08-04-2023 12:09-0400 Body temperature 98.6 [degF] JAXON KUHN MD [facility] 08-04-2023 12:09-0400 Body weight 63 kg JAXON KUHN MD [facility] 08-04-2023 12:09-0400 Diastolic Blood Pressure Non-Invasive 60 1 JAXON KUHN MD [facility] 08-04-2023 12:09-0400 Heart rate 60 /min JAXON KUHN MD [facility] 08-04-2023 12:09-0400 Respiratory rate 18 /min JAXON KUHN MD [facility] 08-04-2023 12:09-0400 Systolic Blood Pressure Non-Invasive 104 1 JAXON KUHN MD [facility] 05-12-2023 13:28-0400 Body height 172.7 cm Ghazala Gusman MD Work Phone: [facility] 05-12-2023 13:28-0400 Body weight 62.14 kg Ghazala Gusman MD Work Phone: [facility] 05-12-2023 13:28-0400 Diastolic blood pressure 57 mm[Hg] Ghazala Gusman MD Work Phone: [facility] 05-12-2023 13:28-0400 Heart rate 73 /min Ghazala Gusman MD Work Phone: [facility] 05-12-2023 13:28-0400 Respiratory rate 20 /min Ghazala Gusman MD Work Phone: [facility] 05-12-2023 13:28-0400 SaO2% (BldA) [Mass fraction] 97 % Ghazala Gusman MD Work Phone: [facility] 05-12-2023 13:28-0400 Systolic blood pressure 102 mm[Hg] Ghazala Gusman MD Work Phone: [facility] 08-20-2022 00:26-0400 Diastolic blood pressure 33 mm[Hg] DR AKIN SALGUERO DO [facility] 08-20-2022 00:26-0400 Heart rate 60 /min DR GERARDO RIDER DO [facility] 08-20-2022 00:26-0400 Respiratory rate 16 /min DR GERARDO RIDER DO [facility] 08-20-2022 00:26-0400 Systolic blood pressure 102 mm[Hg] DR AKIN SALGUERO DO [facility] 08-20-2022 00:09-0400 Diastolic blood pressure 33 mm[Hg] DR GERARDO RIDER DO [facility] 08-20-2022 00:09-0400 Heart rate 60 /min DR AKIN MASONER DO [facility] 08-20-2022 00:09-0400 Reason For Taking VItal Signs DR AKIN SALGUERO DO [facility] 08-20-2022 00:09-0400 Respiratory rate 16 /min DR GERARDO MARLONAUDI DO [facility] 08-20-2022 00:09-0400 Systolic blood pressure 102 mm[Hg] DR AKIN SALGUERO DO [facility] 08-19-2022 23:40-0400 Diastolic blood pressure 70 mm[Hg] DR AKIN SALGUERO DO [facility] 08-19-2022 23:40-0400 Heart rate 60 /min DR GERARDO RIDER DO [facility] 08-19-2022 23:40-0400 Mean blood pressure 79 mm[Hg] DR AKIN SALGUERO DO [facility] 08-19-2022 23:40-0400 Respiratory rate 12 /min DR GERARDO RIDER DO [facility] 08-19-2022 23:40-0400 Systolic blood pressure 96 mm[Hg] DR AKIN SALGUERO DO [facility] 08-19-2022 15:07-0400 Body temperature 98.78 [degF] DR AKIN SALGUERO DO [facility] 06-23-2022 15:16-0400 Body height 172.7 cm Sherif Ramirez MD Work Phone: [facility] 06-23-2022 15:16-0400 Body weight 65.32 kg Sherif Ramirez MD Work Phone: [facility] 06-23-2022 15:16-0400 Diastolic blood pressure 64 mm[Hg] Sherif Ramirez MD Work Phone: [facility] 06-23-2022 15:16-0400 Heart rate 75 /min Sherif Ramirez MD Work Phone: [facility] 06-23-2022 15:16-0400 SaO2% (BldA) [Mass fraction] 97 % Sherif Ramirez MD Work Phone: [facility] 06-23-2022 15:16-0400 Systolic blood pressure 116 mm[Hg] Sherif Ramirez MD Work Phone: [facility] 06-04-2022 13:42-0400 Diastolic blood pressure 67 mm[Hg] Ghazala Gusman MD Work Phone: [facility] 06-04-2022 13:42-0400 Heart rate 77 /min Ghazala Gusman MD Work Phone: [facility] 06-04-2022 13:42-0400 SaO2% (BldA) [Mass fraction] 98 % Ghazala Gusman MD Work Phone: [facility] 06-04-2022 13:42-0400 Systolic blood pressure 115 mm[Hg] Ghazala Gusman MD Work Phone: [facility] 05-22-2022 15:55-0400 Diastolic blood pressure 60 mm[Hg] NOREEN HICKS MD [facility] 05-22-2022 15:55-0400 Heart rate 60 /min NOREEN HICKS MD [facility] 05-22-2022 15:55-0400 Respiratory rate 16 /min NOREEN HICKS MD [facility] 05-22-2022 15:55-0400 Systolic blood pressure 130 mm[Hg] NOREEN HICKS MD [address] 05-22-2022 15:45-0400 Diastolic blood pressure 60 mm[Hg] NOREEN HICKS MD [address] 05-22-2022 15:45-0400 Heart rate 60 /min NOREEN HICKS MD [address] [place] [address] 05-22-2022 15:45-0400 Respiratory rate 11 /min NOREEN HICKS MD [address] [place] [address] 05-22-2022 15:45-0400 Systolic blood pressure 130 mm[Hg] NOREEN HICKS MD [address] 05-22-2022 15:30-0400 Diastolic blood pressure 50 mm[Hg] NOREEN HICKS MD [address] 05-22-2022 15:30-0400 Heart rate 60 /min NOREEN HICKS MD [address] [place] [address] 05-22-2022 15:30-0400 Respiratory rate 12 /min NOREEN HICKS MD [address] [place] [address] 05-22-2022 15:30-0400 Systolic blood pressure 135 mm[Hg] NOREEN HICKS MD [address] [place] [address] 05-22-2022 12:54-0400 Body weight 72.4 kg NOREEN HICKS MD [address] [place] [address] 05-22-2022 12:46-0400 Body temperature 100.22 [degF] NOREEN HICKS MD [address] [place] [address] 05-22-2022 12:46-0400 Heart rate 89 /min NOREEN HICKS MD [facility] 04-25-2022 23:34-0400 Body temperature 98.24 [degF] [facility] 04-25-2022 23:34-0400 Diastolic blood pressure 66 mm[Hg] [facility] 04-25-2022 23:34-0400 Heart rate 71 /min [facility] 04-25-2022 23:34-0400 Systolic blood pressure 122 mm[Hg] [facility] 04-03-2022 15:58-0400 diastolic 56 mm[Hg] DR JAC CHRISTENSEN MD [facility] 04-03-2022 15:58-0400 Heart rate 53 /min DR JAC CHRISTENSEN MD [facility] 04-03-2022 15:58-0400 systolic 98 mm[Hg] DR JAC CHRISTENSEN MD [facility] 04-03-2022 14:50-0400 Body temperature 98.06 [degF] DR JAC CHRISTENSEN MD [facility] 04-03-2022 14:50-0400 diastolic 60 mm[Hg] DR JAC CHRISTENSEN MD [facility] 04-03-2022 14:50-0400 Heart rate 62 /min DR JAC CHRISTENSEN MD [address] [place] [address] 04-03-2022 14:50-0400 Respiratory rate 18 /min DR JAC CHRISTENSEN MD [address] [place] [address] 04-03-2022 14:50-0400 systolic 105 mm[Hg] DR JAC CHRISTENSEN MD [address] [place] [address] 04-02-2022 16:13-0400 Diastolic blood pressure 56 mm[Hg] DR JAC CHRISTENSEN MD [address] [place] [address] 04-02-2022 16:13-0400 Heart rate 60 /min DR JAC CHRISTENSEN MD [address] [place] [address] 04-02-2022 16:13-0400 Mean blood pressure 72 mm[Hg] DR JAC CHRISTENSEN MD [address] [place] [address] 04-02-2022 16:13-0400 Respiratory rate 18 /min DR JAC CHRISTENSEN MD [address] [place] [address] 04-02-2022 16:13-0400 Systolic blood pressure 103 mm[Hg] DR JAC CHRISTENSEN MD [address] [place] [address] 04-02-2022 14:54-0400 diastolic 51 mm[Hg] DR JAC CHRISTENSEN MD [address] [place] [address] 04-02-2022 14:54-0400 Heart rate 67 /min DR JAC CHRISTENSEN MD [address] [place] [address] 04-02-2022 14:54-0400 Respiratory rate 18 /min DR JAC CHRISTENSEN MD [address] [place] [address] 04-02-2022 14:54-0400 systolic 101 mm[Hg] DR JAC CHRISTENSEN MD [address] [place] [address] 12-25-2021 16:07-0500 Body temperature 97.52 [degF] MITCHELL MARY MD [address] [place] [address] 12-25-2021 16:07-0500 Diastolic Blood Pressure NBP 46 1 MITCHELL MARY MD [address] [place] [address] 12-25-2021 16:07-0500 Heart rate 70 /min MITCHELL MARY MD [address] [place] [address] 12-25-2021 16:07-0500 Mean blood pressure 58 mm[Hg] MITCHELL MARY MD [facility] 12-25-2021 16:07-0500 Reason For Taking VItal Signs MITCHELL MARY MD [address] [place] [address] 12-25-2021 16:07-0500 Respiratory rate 16 /min MITCHELL MARY MD [facility] 12-25-2021 16:07-0500 Systolic Blood Pressure NBP 94 1 MITCHELL MARY MD [address] [place] [address] 12-25-2021 11:52-0500 Heart rate 75 /min MITCHELL MARY MD [address] [place] [address] 12-25-2021 11:52-0500 Reason For Taking VItal Signs MITCHELL MARY MD [facility] 12-25-2021 11:43-0500 Heart rate 67 /min MITCHELL MARY MD [facility] 12-25-2021 11:43-0500 Reason For Taking VItal Signs MITCHELL MARY MD [facility] 12-25-2021 10:58-0500 Body temperature 98.06 [degF] MITCHELL MARY MD [address] [place] [address] 12-25-2021 10:58-0500 Diastolic Blood Pressure NBP 52 1 MITCHELL MARY MD [address] [place] [address] 12-25-2021 10:58-0500 Systolic Blood Pressure NBP 115 1 MITCHELL MARY MD [address] [place] [address] 12-25-2021 08:44-0500 Heart rate 74 /min MITCHELL MARY MD [facility] 12-25-2021 06:53-0500 Body temperature 98.24 [degF] MITCHELL MARY MD [facility] 12-25-2021 06:53-0500 Diastolic Blood Pressure NBP 47 1 MITCHELL MARY MD [facility] 12-25-2021 06:53-0500 Systolic Blood Pressure NBP 118 1 MITCHELL MARY MD [facility] 12-24-2021 23:39-0500 Mean blood pressure 67 mm[Hg] MITCHELL MARY MD [facility] 12-24-2021 23:10-0500 Body temperature 96.8 [degF] MITCHELL MARY MD [facility] 12-24-2021 19:33-0500 Respiratory rate 20 /min MITCHELL MARY MD [address] [place] [address] 12-24-2021 18:43-0500 Diastolic blood pressure 54 mm[Hg] MITCHELL MARY MD [address] [place] [address] 12-24-2021 18:43-0500 Respiratory rate 20 /min MITCHELL MARY MD [address] [place] [address] 12-24-2021 18:43-0500 Systolic blood pressure 110 mm[Hg] MITCHELL MARY MD [address] [place] [address] 12-24-2021 14:39-0500 Diastolic blood pressure 58 mm[Hg] MITCHELL MARY MD [facility] 12-24-2021 14:39-0500 Systolic blood pressure 112 mm[Hg] MITCHELL MARY MD [facility] 12-24-2021 10:50-0500 Diastolic blood pressure 62 mm[Hg] MITCHELL MARY MD [facility] 12-24-2021 10:50-0500 Systolic blood pressure 128 mm[Hg] MITCHELL MARY MD [address] [place] [address] 12-24-2021 08:09-0500 Heart rate 76 /min MITCHELL MARY MD [facility] 12-24-2021 06:38-0500 Body temperature 97.52 [degF] MITCHELL MARY MD [facility] 12-24-2021 04:49-0500 Body temperature 97.34 [degF] MITCHELL MARY MD [facility] 12-24-2021 04:49-0500 Mean blood pressure 92 mm[Hg] MITCHELL MARY MD [facility] 12-24-2021 02:11-0500 Body height 172.7 cm MITCHELL MARY MD [facility] 12-24-2021 02:11-0500 Body weight 71.4 kg MITCHELL MARY MD [facility] 12-24-2021 02:11-0500 Body weight 23.94 kg/m2 MITCHELL MARY MD [facility] 12-24-2021 02:10-0500 Body weight 71.4 kg MITCHELL MARY MD [facility] 12-24-2021 01:58-0500 Mean blood pressure 116 mm[Hg] MITCHELL MARY MD [facility] 12-23-2021 23:33-0500 Diastolic blood pressure 65 mm[Hg] CATHY MARQUEZ DO [facility] 12-23-2021 23:33-0500 Heart rate 73 /min CATHY FROMMELT DO [facility] 12-23-2021 23:33-0500 Respiratory rate 24 /min CATHY FROMMELT DO [facility] 12-23-2021 23:33-0500 Systolic blood pressure 129 mm[Hg] CATHY FROMMELT DO [facility] 12-23-2021 23:00-0500 Diastolic blood pressure 96 mm[Hg] CATHY FROMMELT DO [facility] 12-23-2021 23:00-0500 Heart rate 75 /min CATHY FROMMELT DO [facility] 12-23-2021 23:00-0500 Respiratory rate 17 /min CATHY FROMMELT DO [facility] 12-23-2021 23:00-0500 Systolic blood pressure 136 mm[Hg] CATHY FROMMELT DO [facility] 12-23-2021 22:36-0500 Diastolic blood pressure 71 mm[Hg] CATHY FROMMELT DO [facility] 12-23-2021 22:36-0500 Heart rate 76 /min CATHY FROMMELT DO [facility] 12-23-2021 22:36-0500 Respiratory rate 24 /min CATHY FROMMELT DO [facility] 12-23-2021 22:36-0500 Systolic blood pressure 137 mm[Hg] CATHY MARQUEZ DO [facility] 12-23-2021 19:16-0500 Body temperature 98.06 [degF] [facility] 12-23-2021 19:16-0500 Heart rate 77 /min CATHY MARQUEZ DO [facility] 12-05-2021 11:12-0500 Heart rate 66 /min MARTHA PILLAI MD [facility] 12-05-2021 10:59-0500 Body temperature 97.88 [degF] MARTHA PILLAI MD [facility] 12-05-2021 10:59-0500 Diastolic blood pressure 52 mm[Hg] MARTHA PILLAI MD [facility] 12-05-2021 10:59-0500 Heart rate 66 /min MARTHA PILLAI MD [facility] 12-05-2021 10:59-0500 Mean blood pressure 67 mm[Hg] MARTHA PILLAI MD [facility] 12-05-2021 10:59-0500 Systolic blood pressure 98 mm[Hg] MARTHA PILLAI MD [facility] 12-05-2021 08:51-0500 Heart rate 68 /min MARTHA PILLAI MD [facility] 12-05-2021 08:07-0500 Body temperature 97.34 [degF] MARTHA PILLAI MD [facility] 12-05-2021 08:07-0500 Diastolic blood pressure 56 mm[Hg] MARTHA PILLAI MD [facility] 12-05-2021 08:07-0500 Heart rate 63 /min MARTHA PILLAI MD [facility] 12-05-2021 08:07-0500 Mean blood pressure 70 mm[Hg] MARTHA PILLAI MD [facility] 12-05-2021 08:07-0500 Reason For Taking VItal Signs MARTHA PILLAI MD [facility] 12-05-2021 08:07-0500 Respiratory rate 18 /min MARTHA PILLAI MD [facility] 12-05-2021 08:07-0500 Systolic blood pressure 98 mm[Hg] MARTHA PILLAI MD [facility] 12-05-2021 04:00-0500 Diastolic blood pressure 60 mm[Hg] MARTHA PILLAI MD [facility] 12-05-2021 04:00-0500 Mean blood pressure 71 mm[Hg] MARTHA PILLAI MD [facility] 12-05-2021 04:00-0500 Reason For Taking VItal Signs MARTHA PILLAI MD [facility] 12-05-2021 04:00-0500 Systolic blood pressure 94 mm[Hg] MARTHA PILLAI MD [facility] 12-04-2021 21:57-0500 Body temperature 98.24 [degF] MARTHA PILLAI MD [facility] 12-04-2021 21:57-0500 Reason For Taking VItal Signs MARTHA PILLAI MD [facility] 12-04-2021 21:57-0500 Respiratory rate 18 /min MARTHA PILLAI MD [facility] 12-04-2021 17:12-0500 Diastolic Blood Pressure NBP 44 1 MARTHA PILLAI MD [facility] 12-04-2021 17:12-0500 Mean blood pressure 60 mm[Hg] MARTHA PILLAI MD [facility] 12-04-2021 17:12-0500 Systolic Blood Pressure NBP 95 1 MARTHA PILLAI MD [facility] 12-04-2021 16:08-0500 Diastolic Blood Pressure NBP 47 1 MARTHA PILLAI MD [facility] 12-04-2021 16:08-0500 Systolic Blood Pressure NBP 100 1 MARTHA PILLAI MD [facility] 12-04-2021 02:01-0500 Diastolic Blood Pressure NBP 50 1 MARTHA PILLAI MD [facility] 12-04-2021 02:01-0500 Mean blood pressure 64 mm[Hg] MARTHA PILLAI MD [facility] 12-04-2021 02:01-0500 Systolic Blood Pressure NBP 96 1 MARTHA PILLAI MD [facility] 12-03-2021 19:51-0500 Mean blood pressure 62 mm[Hg] MARTHA PILLAI MD [facility] 12-03-2021 10:50-0500 Heart rate 67 /min MARTHA PILLAI MD [facility] 12-01-2021 13:15-0500 SaO2% (BldA) [Mass fraction] 93.7 % MARTHA PILLAI MD [facility] 11-29-2021 23:28-0500 Body temperature 97.7 [degF] MARTHA PILLAI MD [facility] 11-29-2021 11:04-0500 diastolic 40 mm[Hg] MARTHA PILLAI MD [facility] 11-29-2021 11:04-0500 systolic 82 mm[Hg] MARTHA PILLAI MD [facility] 11-29-2021 11:04-0500 systolic 80 mm[Hg] MARTHA PILLAI MD [facility] 11-26-2021 07:40-0500 SaO2% (BldA) [Mass fraction] 95.0 % MARTHA PILLAI MD [facility] 11-25-2021 04:06-0500 SaO2% (BldA) [Mass fraction] 95.9 % MARTHA PILLAI MD [facility] 11-22-2021 04:04-0500 Body height 162 cm MARTHA PILLAI MD [facility] 11-22-2021 04:04-0500 Body weight 76.8 kg MARTHA PILLAI MD [facility] 11-22-2021 04:04-0500 Body weight 29.26 kg/m2 MARTHA PILLAI MD [facility] 11-22-2021 02:05-0500 Diastolic blood pressure 55 mm[Hg] JAXON KUHN MD [facility] 11-22-2021 02:05-0500 Heart rate 74 /min JAXON KUHN MD [facility] 11-22-2021 02:05-0500 Respiratory rate 12 /min JAXON KUHN MD [facility] 11-22-2021 02:05-0500 Systolic blood pressure 88 mm[Hg] JAXON KUHN MD [facility] 11-22-2021 01:34-0500 Diastolic blood pressure 49 mm[Hg] JAXON KUHN MD [facility] 11-22-2021 01:34-0500 Systolic blood pressure 93 mm[Hg] JAXON KUHN MD [facility] 11-22-2021 01:30-0500 Heart rate 88 /min JAXON KUHN MD [facility] 11-22-2021 01:30-0500 Respiratory rate 16 /min JAXON KUHN MD [facility] 11-22-2021 01:15-0500 Diastolic blood pressure 58 mm[Hg] JAXON KUHN MD [facility] 11-22-2021 01:15-0500 Heart rate 101 /min JAXON KUHN MD [facility] 11-22-2021 01:15-0500 Respiratory rate 15 /min JAXON KUHN MD [facility] 11-22-2021 01:15-0500 Systolic blood pressure 100 mm[Hg] JAXON KUHN MD [facility] 11-22-2021 00:29-0500 SaO2% (BldA) [Mass fraction] 100 % JAXON KUHN MD [facility] 11-21-2021 21:58-0500 Body temperature 98.42 [degF] JAXON KUHN MD [facility] 12-31-2021 21:58-0500 Heart rate 130 /min JAXON KUHN MD [facility] Encounters Encounter Date Encounter Type Care Provider Facility Start: 10-05-2025 ambulatory Marci Baird John Facility:[facility] Start: 10-02-2025 End: 10-02-2025 ambulatory Marci Baird John Facility:[facility] Start: 10-01-2025 End: 10-01-2025 ambulatory Marci Baird John Facility:[facility] Start: 09-25-2025 ambulatory Marci Baird John Facility:[facility] Start: 09-25-2025 End: 09-25-2025 ambulatory Marci Baird John Facility:[facility] Start: 09-16-2025 End: 09-17-2025 Emergency department patient visit Marci Lopez Facility:[facility] Start: 09-03-2025 End: 09-03-2025 Dr. Angelita Garcia MD -[facility] Work Phone: Start: 09-03-2025 End: 09-03-[address] Marci Lopez DO Work Phone: -[facility] Start: 08-29-2025 End: 08-29-2025 Rosa ROWLEY -[facility] Work Phone: Start: 08-29-2025 End: 08-29-[address] Marci Lopez DO Work Phone: -[facility] Start: 08-14-2025 ambulatory Marci Brie John Facility:[facility] Start: 08-14-2025 Dr. Angelita doyle MD -[facility] Work Phone: Start: 08-07-2025 End: 08-07-2025 Telephone encounter Marci Pintosdon Work Phone: [facility] Clinical Communication Comment on above: Med Refill Start: 08-06-2025 End: 08-06-2025 Dr. Angelita Garcia MD -[facility] Work Phone: Start: 08-06-2025 End: 08-06-[address] Marci Lopez DO Work Phone: -[facility] Start: 08-06-2025 End: 08-06-[address] Marci Lopez DO Work Phone: -[facility] Start: 08-06-2025 End: 08-06-2025 Dr. Danish Tavarez MD -[facility] Work Phone: Start: 08-04-2025 End: 08-04-2025 amb[facility] Start: 08-04-2025 End: 08-04-2025 Patient encounter procedure Anna Zarco RN [facility] Start: 07-30-2025 End: 07-30-[address] Marci Lopez DO Work Phone: [facility] Start: 07-30-2025 End: 07-30-2025 Dr. Danish Tavarez MD -[facility] Work Phone: Start: 07-26-2025 End: 07-26-[address] Marci Lopez DO Work Phone: -[facility] Start: 07-26-2025 End: 07-26-[address] [facility] Work Phone: Start: 07-25-2025 End: 07-25-[address] Marci Lopez DO Work Phone: -Pulmonary Services/Neurology Start: 07-25-2025 End: 07-25-2025 Dr. Saul Freitas DO -[facility] Services/Neurology Work Phone: Start: 07-25-2025 End: 07-25-2025 ambulatory Marci Lopez Facility:[facility] Start: 07-20-2025 End: 07-20-2025 Rosa ROWLEY -[facility] Work Phone: Start: 07-20-2025 End: 07-20-[address] Marci Lopez DO Work Phone: -[facility] Start: 07-19-2025 ambulatory Marci Lopez [facility] Start: 07-19-2025 Dr. Saul Freitas DO -[facility] Start: 07-16-2025 End: 07-16-[address] Marci Lopez DO Work Phone: -Pulmonary Services/Neurology Start: 07-16-2025 End: 07-16-2025 Dr. Saul Freitas DO -[facility] Services/Neurology Work Phone: Start: 07-16-2025 End: 07-16-2025 ambulatory Marci Lopez Facility:[facility] Start: 07-12-2025 End: 07-12-2025 Dr. Saul Freitas DO -[facility] Work Phone: Start: 07-12-2025 End: 07-12-[address] Marci Lopez DO Work Phone: -[facility] Start: 07-10-2025 End: 07-10-2025 Patient encounter procedure Leonel Hurtado APRN.RANGER AIDE Work Phone: [facility] Comment on above: Chronic fatigue and malaise [...] Start: 07-10-2025 End: 07-10-2025 ambulatory LEONEL HURTADO Facility:[facility] Start: 07-09-20[facility] Start: 07-09-2025 Mariolashell Rosario MD -[facility] Start: 07-04-2025 ambulatory Marci Baird John [facility] Start: 07-04-2025 Dr. Camacho Aguilar MD -[facility] Work Phone: Start: 07-03-2025 Dr. Camacho Aguilar MD -[facility] Work Phone: Start: 07-02-2025 Dr. Camacho Aguilar MD -[facility] Work Phone: Start: 07-01-2025 End: 07-04-2025 [address] [facility] Facility:[facility] Start: 07-01-2025 End: 07-04-[address] Marci Lopez DO Work Phone: -[facility] 3 Start: 07-01-2025 End: 07-04-2025 Dr. Jose Royal DO -[facility] Work Phone: Start: 06-29-2025 End: 06-29-2025 ambulatory CECILIA GRACIELA Facility:[facility] Start: 06-19-2025 End: 06-19-2025 ambulatory Wesley Natalia [facility] Work Phone: [facility] Comment on above: [facility] - Disc ontinuation Of Therapy ( Austedo XR) Start: 06-16-2025 End: 06-16-2025 ambulatory Dannie Goodman Clinical Communication Start: 06-16-2025 End: 06-16-2025 Patient encounter procedure Dannie Goodman Clinical Communication Start: 06-11-2025 Dr. Ganesh Bradley and -[facility] Work Phone: Start: 06-10-2025 Dr. Ganesh Bradley and -[facility] Work Phone: Start: 06-09-2025 End: 06-09-2025 Telephone encounter Marci Lopez Work Phone: [facility] Communication Comment on above: Other (Update on [facility] ) Start: 06-09-2025 Dr. Ganesh Bradley and MD [facility] Work Phone: Start: 06-08-2025 Dr. Ganesh Bradley and [facility] Work Phone: Start: 06-07-2025 Dr. Ganesh Bradley and [facility] Work Phone: Start: 06-06-2025 Dr. Ganesh Bradley and [facility] Work Phone: Start: 06-05-2025 Dr. Ben kowalski DO [facility] Work Phone: Start: 06-04-2025 [facility]: Start: 06-03-2025 Dr. Ben kowalski DO [facility] Work Phone: Start: 06-02-2025 Dr. Ben kowalski DO [facility] [facility] Work Phone: Start: 06-02-2025 End: 06-02-2025 Patient encounter procedure Donna Vail RN [facility] Clinical [facility] Start: 06-02-2025 End: 06-02-2025 Telephone encounter Marci Lopez Work Phone: [facility] Comment on above: Care Coordination (P age ) Start: 06-02-2025 End: 06-02-2025 ambulatory Donna Vail RN [facility] Clinical Communication Start: 06-02-2025 End: 06-11-2025 Evaluation and management of inpatient Dr. Marci Lopez DO Work Phone: -Medical Surgical 3 Start: 06-02-2025 End: 06-11-2025 Dr. Ben Johnson DO -Medical Surgical 3 Work Phone: Start: 06-01-2025 End: 06-01-2025 Subsequent hospital visit by physician Marci Lopez Work Phone: [facility] Radiology Comment on above: Chronic systolic (co ngestive) heart failure (HCC) Start: 06-01-2025 End: 08-31-2025 ambulatory MARCIDOMINIC LOPEZ [facility] Comment on above: Chronic systolic (co ngestive) heart failure (HCC) (Primary Dx) Start: 05-30-2025 End: 05-30-2025 Patient encounter procedure Rosa ROWLEY -[facility] Work Phone: Start: 05-30-2025 End: 05-30-2025 Rosa ROWLEY -[facility] Work Phone: Start: 05-30-2025 End: 05-30-[address] Marci Lopez DO Work Phone: -[facility] Start: 05-29-2025 End: 05-29-2025 Patient encounter procedure Kaykay ROWLEY -[facility] Work Phone: Start: 05-29-2025 End: 05-29-2025 Kaykay ROWLEY -[facility] Work Phone: Start: 05-29-2025 End: 05-29-[address] Marci Lopez DO Work Phone: -[facility] Start: 05-22-2025 End: 05-22-2025 Dr. Marci Lopez DO Work Phone: -Emergency Department Work Phone: Start: 05-22-2025 End: 05-22-2025 Emergency department patient visit Dr. Marci Lopez DO Work Phone: -Emergency Department Start: 05-22-2025 Dr. Angelita doyle MD -[facility] Work Phone: Start: 05-21-2025 End: 05-21-2025 Specialty Pharmacy Wesley [facility] Work Phone: [facility] Specialty Pharmacy Comment on above: SPP Neurology - Medi cation Refill (Austedo XR) Start: 05-03-2025 End: 05-03-[address] Marci Lopez DO Work Phone: [facility] Work Phone: Start: 05-03-2025 End: 05-03-[address] Danish Tavarez MD -[facility] Work Phone: Start: 05-03-2025 End: 05-03-2025 Dr. Danish Tavarez MD [facility] Work Phone: Start: 04-25-2025 Non-patient / Non-visit Shan Rivero nd, DO -[facility] Start: 04-25-2025 End: 04-25-2025 Admission to same day surgery center Shanrosalind Lockett DO -Endoscopy Work Phone: Start: 04-25-2025 End: 04-25-2025 Shanrosalind Lockett DO -Endoscopy Work Phone: Start: 04-25-2025 End: 04-25-[address] Marci Lopez DO Work Phone: [facility] Work Phone: Start: 04-23-2025 End: 04-23-2025 Specialty Pharmacy [facility] Work Phone: [facility] Specialty Pharmacy Comment on above: SPP Neurology - Medi cation Refill (Autedo ) Start: 04-20-2025 End: 05-03-2025 Evaluation and management of inpatient Dr. Alonso Marte MD -Transitional Care Unit Start: 04-20-2025 End: 05-03-2025 Dr. Alonso Marte MD -Transitional Care U nit Start: 04-20-2025 Non-patient / Non-visit Dr. Matthew FOWLER [facility] Work Phone: Start: 04-20-2025 Dr. Maximo Orosco DO [facility] Work Phone: Start: 04-19-2025 End: 04-20-2025 ambulatory Maximo Orosco Facility:[facility] Start: 04-19-2025 End: 04-20-2025 Evaluation and management of inpatient Dr. Maximo Orosco DO -Medical Surgical 3 Work Phone: Start: 04-19-2025 End: 04-20-[address] Marci Lopez DO Work Phone: [facility] Work Phone: Start: 04-19-2025 End: 04-20-2025 Dr. Maximo Orosco DO -Medical Surgical 3 Work Phone: Start: 04-19-2025 End: 04-19-2025 Emergency department patient visit Dr. Marci Lopez DO Work Phone: -Emergency Department Work Phone: Start: 04-19-2025 End: 04-19-[address] Marci Lopez DO Work Phone: [facility] Work Phone: Start: 04-19-2025 End: 04-19-[address] Danish Tavarez MD -[facility] Work Phone: Start: 04-19-2025 End: 04-19-2025 Dr. Danish Tavarez MD -[facility] Work Phone: Start: 04-06-2025 End: 06-06-2025 Follow-up encounter Leyla Murphy MD Work Phone: Neurology Start: 04-04-2025 ambulatory LEYLA Avalos y:[facility] Start: 04-04-2025 End: 04-04-2025 Subsequent hospital visit by physician [facility] (1.5t) Radiology Comment on above: Essential tremor [G2 5.0] Start: 04-02-2025 End: 04-02-2025 Subsequent hospital visit by physician [facility] Work Phone: Radiology Comment on above: Presence of cardiac pacemaker [Z95.0] Start: 04-02-2025 End: 04-02-2025 ambulatory LEYLA MURPHY Facility:[facility] Start: 03-28-2025 End: 03-28-2025 ambulatory Trish Dariela [facility] Specialty Pharmacy Comment on above: [place] XR approved Start: 03-28-2025 End: 03-28-2025 E-mail encounter from caregiver Trish Dariela [facility] Specialty Pharm[facility] Start: 03-28-2025 End: 03-28-2025 Telephone encounter Leyla Murphy MD Work Phone: Neurology Comment on above: Patient Question Start: 03-10-2025 End: 03-10-2025 ambulatory Linda Valdez RN [facility] Clinical Communication Start: 03-10-2025 End: 03-10-2025 Patient encounter procedure [facility] Start: 03-10-2025 End: 03-10-2025 Dr. [...] Start: 02-28-2025 End: 02-28-2025 ambulatory Wesley [facility] Work Phone: [facility] Specialty Pharmacy Start: 02-28-2025 End: 02-28-2025 Patient encounter procedure Wesley Hayes [facility] Work Phone: [facility] Specialty Pharmacy Comment on above: SPP Neurology - Lina tment Referral (Ingrezza); Insurance Authorization ([place] Submission Pending) Start: 02-27-2025 End: 02-27-2025 ambulatory LEYLA MURPHY Facility:[facility] Start: 02-27-2025 End: 02-27-2025 Office outpatient visit 40 minutes Leyla Murphy MD Work Phone: Neurology Comment on above: Essential tremor (Pr imary Dx); Dyskinesia, tardive Start: 02-27-2025 End: 02-27-2025 Telephone encounter Leyla Murphy MD Work Phone: Neurology Comment on above: Appointment (MRI Bra in WO IVCON) Start: 02-14-2025 End: 02-14-2025 Patient encounter procedure Rosa ROWLEY -[facility] Work Phone: Start: 02-14-2025 End: 02-14-2025 Rosa ROWLEY -[facility] Work Phone: Start: 02-14-2025 End: 02-14-2025 ambulatory Rosa Rodriguez [facility] Start: 02-13-2025 End: 02-13-2025 Patient encounter procedure Mayte Burch NP-C -[facility] Work Phone: Start: 02-13-2025 End: 02-13-2025 Mayte Burch NP-C -[facility] Work Phone: Start: 02-13-2025 End: 02-13-2025 ambulatory Marci Lopez Facility[facility] Start: 01-29-2025 End: 01-29-2025 Dr. Danish Tavarez MD -[facility] Work Phone: Start: 01-28-2025 End: 01-29-2025 ambulatory Sari Parra RN [facility] Clinical Communication Start: 01-28-2025 End: 01-29-2025 Patient encounter procedure Sari Parra RN [facility] Clinical [facility] Start: 01-23-2025 End: 01-23-[address] Luigi Tinoco MD -[facility] Work Phone: Start: 01-23-2025 End: 01-23-2025 Dr. Luigi Tinoco MD -[facility] Work Phone: Start: 01-23-2025 End: 01-23-[address] [facility] Facility[facility] Start: 01-22-2025 ambulatory [facility] Facility:[facility] Start: 01-22-[address] Kristen Tinoco MD -[facility] Start: 01-22-2025 Dr. Luigi Tinoco MD -[facility] Start: 01-19-2025 End: 01-19-2025 Telephone encounter Leyla Murphy MD Work Phone: Neurology Comment on above: Appointment (Time Ch kamilah: 05/15/2025) Start: 01-19-2025 ambulatory [facility] Facility:[id number] Start: 01-19-2025 End: 01-19-2025 Subsequent hospital visit by physician [facility] Work Phone: [facility] Comment on above: Solitary pulmonary n odule [R91.1] Start: 01-18-2025 End: 01-18-2025 Patient encounter procedure Kaykay ROWLEY -[facility] Work Phone: Start: 01-18-2025 End: 01-18-2025 Kaykay ROWLEY -[facility] Work Phone: Start: 01-18-2025 End: 01-18-2025 ambulatory [facility] Facility[facility] Start: 12-22-2024 ambulatory [facility] Facility:[facility] Start: 12-22-2024 End: 12-22-2024 Patient encounter procedure Marci Lopez DO -[facility] Work Phone: Start: 12-22-2024 End: 12-22-2024 ambulatory [facility] Facility:[facility] Start: 12-19-2024 End: 12-19-2024 Patient encounter procedure Dipti ROWLEY -[facility] Work Phone: Start: 12-19-2024 End: 12-19-2024 ambulatory Marci Baird John Facility:[facility] Start: 12-15-2024 End: 12-15-2024 Patient encounter procedure Rosa ROWLEY -Laboratory, Specimen Work Phone: Start: 12-15-2024 End: 12-15-2024 [facility] Facility:[facility] Start: 12-13-2024 End: 12-13-2024 Subsequent hospital visit by physician Marci Lopez Work Phone: [facility] Pulm Function Test Comment on above: Other forms of dyspn ea Start: 12-13-2024 End: 12-13-2024 [facility] Start: 12-12-2024 End: 12-12-2024 Patient encounter procedure Rosa ROWLEY -[facility] Work Phone: Start: 12-12-2024 End: 12-12-2024 ambulatory Marci Baird John Facility:[facility] Start: 11-28-2024 End: 11-28-[address] Adrienne Christine MD -[facility] Work Phone: Start: 11-28-2024 End: 11-28-2024 ambulatory Marci Lopez Facility[facility] Start: 11-24-2024 End: 11-24-2024 Telephone encounter Marci Lopez Work Phone: [facility] Clinical Communication Comment on above: Other (Discuss Apppo intment) Start: 11-23-2024 End: 11-23-2024 Patient encounter procedure Rosa ROWLEY -[facility] Work Phone: Start: 11-23-2024 End: 11-23-2024 ambulatory Marci Baird John Facility:[facility] Start: 11-18-2024 End: 11-18-2024 Emergency department patient visit Dr. Jose Jaime DO -Emergency Department Work Phone: Start: 11-16-2024 End: 11-16-2024 Telephone encounter Marci Lopez Work Phone: [facility] Comment on above: Appointment Request Start: 11-14-2024 End: 11-14-2024 ambulatory Marci Lopez Facility:[facility] Start: 11-14-2024 Registered Recurring Marci Lopez DO -Physical Therapy Work Phone: Start: 11-13-2024 End: 11-14-2024 Telephone encounter Ghazala Gusman MD Work Phone: Rehab Medicine Comment on above: Requesting help with spasticity medication. Start: 11-10-2024 End: 11-10-2024 Subsequent hospital visit by physician Pina Isidro Work Phone: [facility] Comment on above: Dizziness and giddin ess Start: 11-10-2024 End: 11-10-2024 ambulatory PINA ISIDRO [facility] Start: 11-07-2024 End: 02-06-2025 Transcribe Orders Pina Isidro RN [facility] Central Scheduling Comment on above: Dizziness and giddin ess (Primary Dx) Start: 11-02-2024 End: 11-02-2024 Emergency department patient visit Marci Lopez Facility:[facility] Start: 10-30-2024 End: 10-30-2024 ambulatory Marci Lopez Facility[facility] Start: 10-17-2024 End: 10-17-2024 ambulatory Marci Lopez Facility:[facility] Start: 10-13-2024 End: 01-12-2025 Transcribe Orders Marci Lopez Work Phone: [facility] Central Scheduling Comment on above: Other forms of dyspn ea (Primary Dx) Start: 10-06-2024 End: 10-06-2024 Telephone encounter Marci Lopez Work Phone: [facility] Clinical [facility] Comment on above: Other Start: 08-13-2024 End: 08-13-2024 Patient encounter procedure Roxanne Boo RT(R) Nuclear Medicine Start: 08-13-2024 End: 08-13-2024 ambulatory Roxanne Boo RT(R) Nuclear Medicine Comment on above: Radiology NM Start: 08-13-2024 End: 08-13-2024 Subsequent hospital visit by physician [facility] Work Phone: Nuclear Medicine Comment on above: 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] Start: 08-05-2024 End: 08-05-2024 ambulatory Dulce Maria Gibson [facility] Start: 08-05-2024 End: 08-05-2024 Patient encounter procedure Dulce Maria Gibson RN [facility] Clinical Communication Start: 08-04-2024 End: 08-04-2024 ambulatory Anna Zarco RN [facility] Clinical [facility] Start: 08-04-2024 End: 08-04-2024 Patient encounter procedure Anna Zarco RN [facility] Clinical Communication Start: 07-21-2024 ambulatory MARTHA PILLAI Facility :[id number] Start: 07-21-2024 End: 07-21-2024 Subsequent hospital visit by physician [facility] Work Phone: [facility] Comment on above: Solitary pulmonary n odule [R91.1] Start: 07-20-2024 End: 10-19-2024 Transcribe Orders MarciThe [employer] Work Phone: [facility] Outaptient Lab Comment on above: Chronic kidney disea se, stage 3a (HCC) (Primary Dx) Start: 07-11-2024 End: 07-11-2024 ambulatory Bill Deluca RN [facility] Clinical [facility] Start: 07-11-2024 End: 07-11-2024 Patient encounter procedure Bill Deluca [facility] Clinical Communication Start: 07-11-2024 End: 07-11-2024 Telephone encounter Identified Work Phone: [employer] Clinical Communication Comment on above: Other (Needs call jaci lora from office) Start: 07-10-2024 End: 10-09-2024 Subsequent hospital visit by physician Marci Lopez Work Phone: [facility] Radiology Comment on above: Other constipation Other constipation ( Primary Dx) Start: 06-28-2024 End: 06-28-2024 Telephone encounter Rick Gerardo Adrianna SP[employer]ER - [employer]ANGER AIDE Work Phone: [facility] Clinical Communication Comment on above: Other ([facility] ) Start: 05-19-2024 End: 05-19-2024 ambulatory ADRIENNE BYERS DO Facility:B Start: 05-19-2024 End: 05-19-[address] JAC CHRISTENSEN MD [facility] Start: 05-17-2024 End: 05-17-2024 Patient encounter procedure Ghazala Gusman MD Work Phone: Rehab Medicine Comment on above: History of stroke (P rimary Dx); Spasticity Start: 04-07-2024 End: 04-07-2024 Patient encounter procedure ADRIENNE BYERS DO [facility] Start: 04-07-2024 End: 04-07-2024 ambulatory ADRIENNE BYERS DO Facility:B Start: 02-29-2024 End: 03-15-2024 Evaluation and management of inpatient Dr. Adrienne Byers Work Phone: [facility]Trans[facility] Start: 02-29-2024 Non-patient / Non-visit Dr. Lauren Byers Work Phone: [facility] Work Phone: Start: 02-28-2024 Non-patient / Non-visit Dr. Lauren Byers Work Phone: [facility] Start: 02-28-2024 Non-patient / Non-visit Dr. Lauren Byers Work Phone: [facility] Work Phone: Start: 02-27-2024 Non-patient / Non-visit Dr. Lauren Byers Work Phone: [facility] Start: 02-27-2024 Non-patient / Non-visit Dr. Lauren Byers Work Phone: [facility] Work Phone: Start: 02-26-2024 Non-patient / Non-visit Dr. Lauren Byers Work Phone: [facility] Start: 02-26-2024 Non-patient / Non-visit Dr. Lauren Byers Work Phone: [facility] Work Phone: Start: 02-25-2024 Non-patient / Non-visit Dr. Lauren Byers Work Phone: [facility] Start: 02-25-2024 Non-patient / Non-visit Dr. Lauren Byers Work Phone: [facility] Work Phone: Start: 02-24-2024 Non-patient / Non-visit Dr. Lauren Byers Work Phone: [facility] Start: 02-24-2024 Non-patient / Non-visit Dr. Lauren Byers Work Phone: [facility] Work Phone: Start: 02-23-2024 Non-patient / Non-visit Dr. Laurne Byers Work Phone: [facility] Start: 02-23-2024 Non-patient / Non-visit Dr. Lauren Byers Work Phone: [facility] Work Phone: Start: 02-22-2024 Non-patient / Non-visit Dr. Lauren Byers Work Phone: [facility] Start: 02-22-2024 Non-patient / Non-visit Dr. Lauren Byers Work Phone: [facility] Work Phone: Start: 02-22-2024 End: 02-22-2024 Non-patient / Non-visit Dr. Adrienne Byers Work Phone: [facility] Work Phone: Start: 02-21-2024 Non-patient / Non-visit Dr. Lauren Byers Work Phone: [facility] Work Phone: Start: 02-21-2024 End: 02-29-2024 Evaluation and management of inpatient [facility]. [facility]rienne Byers [facility] Work Phone: Start: 02-19-2024 End: 02-19-2024 [facility] Start: 02-14-2024 End: 02-14-2024 ambulatory ADRIENNE BYERS DO Facility:[facility] Start: 12-27-2023 End: 12-27-2023 ambulatory ADRIENNE BYERS DO Facility:[facility] Start: 12-27-2023 End: 12-27-2023 Patient encounter procedure ADRIENNE BYERS DO [facility] Start: 12-08-2023 End: 12-08-2023 Emergency department patient visit Dr. Adrienne Byers [facility] Start: 10-28-2023 End: 01-04-2024 ambulatory ADRIENNE CONNELLYKO DO Facility:[facility] Start: 10-25-2023 End: 10-25-2023 ambulatory ADRIENNE HALKO DO Facility:B Start: 10-25-2023 End: 10-25-[address] JAC CHRISTENSEN MD [facility] Start: 10-22-2023 ambulatory Sherif Ramirez MD Work Phone: [facility] Comment on above: Occupational Therapy Start: 10-20-2023 End: 10-20-2023 ambulatory Sherif Ramirez MD Work Phone: [facility] Comment on above: Essential tremor (Pr imary Dx); Tremor of left hand Start: 10-20-2023 End: 10-20-2023 Telemedicine consultation with patient Sherif Ramirez MD Work Phone: [facility] Start: 10-12-2023 Non-patient / Non-visit Dr. Lauren Byers Work Phone: [facility] Work Phone: Start: 10-11-2023 Non-patient / Non-visit Dr. Lauren Byers Work Phone: [facility] Work Phone: Start: 10-10-2023 Non-patient / Non-visit Dr. Lauren Byers Work Phone: [facility] Work Phone: Start: 10-09-2023 Non-patient / Non-visit Dr. Lauren Byers Work Phone: [facility] Work Phone: Start: 10-08-2023 Non-patient / Non-visit Dr. Lauren Byers Work Phone: [facility] Work Phone: Start: 10-07-2023 End: 10-12-2023 Evaluation and management of inpatient Dr. Adrienne Byers Work Phone: [facility] Work Phone: Start: 10-07-2023 End: 10-12-[address] Adrienne Byers Work Phone: [facility] Work Phone: Start: 10-07-2023 Non-patient / Non-visit Dr. Lauren Byers Work Phone: [facility] Work Phone: Start: 10-01-2023 End: 10-07-2023 Evaluation and management of inpatient Dr. Adrienne Byers [facility] Start: 10-01-2023 Non-patient / Non-visit Dr. Lauren Byers Work Phone: [facility] Work Phone: Start: 09-30-2023 Non-patient / Non-visit Dr. Lauren Byers Work Phone: [facility] Work Phone: Start: 09-30-2023 End: 09-30-[address] Adrienne Byers Work Phone: [facility] Work Phone: Start: 09-29-2023 Non-patient / Non-visit Dr. Lauren Byers Work Phone: [facility] Work Phone: Start: 09-29-2023 Non-patient / Non-visit Dr. Lauren Byers Work Phone: [facility] Start: 09-29-2023 Non-patient / Non-visit Dr. 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] Start: 09-21-2023 End: 09-21-2023 Subsequent hospital visit by physician Jenn Mejias Start: 09-07-2023 End: 09-07-2023 ambulatory ADRIENNE GAXIOLA Facility:B Start: 09-07-2023 End: 09-07-2023 Patient encounter procedure ADRIENNE BYERS DO [facility] Start: 08-27-2023 ambulatory ADRIENNE BYERS DO Facili ty:B Start: 08-26-2023 End: 08-26-2023 ambulatory ADRIENNE BYERS DO Facility:B Start: 08-18-2023 End: 08-18-2023 ambulatory ADRIENNE BYERS DO Facility:B Start: 08-18-2023 End: 08-18-2023 SAME DAY STAY JAXON KUHN MD [facility] Start: 08-16-2023 ambulatory ADRIENNE BYERS DO Facili ty:B Start: 08-11-2023 End: 08-11-2023 ambulatory ADRIENNE BYERS DO Facility:B Start: 08-11-2023 End: 08-11-2023 SAME DAY STAY JAXON KUHN MD [facility] Start: 08-07-2023 End: 08-07-2023 ambulatory ADRIENNE BYERS DO Facility:B Start: 08-04-2023 End: 08-04-2023 Emergency department patient visit JAXON KUHN MD [facility] Start: 07-21-2023 Refill Sherif Ramirez MD Work Phone: [facility] Comment on above: Refill Request Start: 07-13-2023 End: 07-13-2023 ambulatory ADRIENNE BYERS DO Facility:B Start: 07-01-2023 End: 07-01-2023 Office outpatient visit 25 minutes Sherif Ramirez MD Work Phone: [facility] Comment on above: 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); Parkinsonism, unspecified Parkinsonism type (HCC) Start: 06-23-2023 ambulatory ADRIENNE Salazari ty:B Start: 06-09-2023 End: 06-09-[address] JAC CHRISTENSEN MD Facility:B Start: 06-09-2023 End: 06-09-[address] JAC CHRISTENSEN MD [facility] Start: 05-17-2023 End: 05-17-2023 Patient encounter procedure ADRIENNE BYERS DO [facility] Start: 05-17-2023 Telephone encounter Ghazala [...] Patient encounter procedure DR JAC CHRISTENSEN MD [facility] Start: 11-30-2022 End: 12-04-2022 Outreach Lab ADRIENNE BYERS DO [facility] Start: 11-27-2022 End: 11-27-2022 Patient encounter procedure ADRIENNE BYERS DO [facility] Start: 11-02-2022 End: 11-06-2022 Outreach Lab ADRIENNE BYERS DO [facility] Start: 10-12-2022 Telephone encounter Ghazala davis MD Work Phone: Rehab Medicine Comment on above: Medication question Start: 10-12-2022 End: 10-12-2022 ambulatory Sherif Ramirez MD Work Phone: [facility] Comment on above: Tremor of left hand Start: 10-12-2022 End: 10-12-2022 Telemedicine consultation with patient Sherif Ramirez MD Work Phone: [facility] Start: 10-05-2022 End: 10-05-[address] LARY WHEAT DO [facility] Start: 09-09-2022 End: 09-09-[address] JAC CHRISTENSEN MD [facility] Start: 08-19-2022 End: 08-20-2022 Emergency department patient visit DR AKIN SALGUERO DO [facility] Start: 08-10-2022 End: 08-10-2022 ambulatory Sherif Ramirez MD Work Phone: [facility] Comment on above: 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); Parkinson disease (HCC); Nocturnal muscle cramp Start: 08-10-2022 End: 08-10-2022 Telemedicine consultation with patient Sherif Ramirez MD Work Phone: [facility] Start: 07-20-2022 End: 07-20-[address] JAC CHRISTENSEN MD [facility] Start: 07-14-2022 End: 01-03-2023 Lab-Standing Order QIANA BAKER MD [facility] Start: 07-08-2022 End: 10-19-2022 Cardiac Rehab MITCHELL MARY MD [facility] Start: 07-01-2022 End: 07-01-[address] JAC CHRISTENSEN MD [facility] Start: 06-29-2022 ambulatory Sehrif Ramirez MD Work Phone: [facility] Comment on above: Parkinson Disease pr escription Start: 06-23-2022 End: 06-23-2022 Patient encounter procedure Sherif Ramirez MD Work Phone: [facility] Comment on above: Parkinsonism, unspec ified Parkinsonism type (HCC) (Primary Dx); Tremor of left hand Start: 06-09-2022 End: 06-09-[address] JAC CHRISTENSEN MD [facility] Start: 06-04-2022 End: 06-04-2022 Patient encounter procedure Ghazala Gusman MD Work Phone: Spine Medicine Comment on above: Tremor of left hand (Primary Dx) Start: 06-01-2022 End: 06-01-[address] LARY WHEAT DO [facility] Start: 05-22-2022 End: 05-22-2022 Emergency department patient visit NOREEN HICKS MD [facility] Start: 05-01-2022 Refill Ghazala Gusman MD Work Phone: Rehab Medicine Comment on above: Refill Request Start: 05-01-2022 End: 05-01-[address] JAC CHRISTENSEN MD [facility] Start: 04-25-2022 End: 04-26-2022 Emergency department patient visit NATAN ARIRETA DO [facility] Start: 04-03-2022 End: 04-03-[address] JAC CHRISTENSEN MD [facility] Start: 04-02-2022 End: 04-02-[address] JAC CHRISTENSEN MD [facility] Start: 03-24-2022 End: 03-24-[address] JAC CHRISTENSEN MD [facility] Start: 03-20-2022 End: 03-20-[address] JAC CHRISTENSEN MD [facility] Start: 03-17-2022 End: 03-17-[address] JAC CHRISTENSEN MD [facility] Start: 03-06-2022 End: 03-06-[address] JAC CHRISTENSEN MD [facility] Start: 03-03-2022 End: 03-03-2022 Patient encounter procedure HARISH GORMAN [facility] Start: 02-24-2022 End: 02-24-[address] JAC CHRISTENSEN MD [facility] Start: 02-05-2022 Telephone encounter Ghazala davis MD Work Phone: Spine Medicine Comment on above: Question (medication ) Start: 02-04-2022 End: 02-04-2022 Patient encounter procedure REI ALFONSO SPICE BLENDER-RANGER AIDE [facility] Start: 01-03-2022 End: 01-03-2022 Patient encounter procedure ERI ALFONSO SPICE BLENDER-RANGER AIDE [facility] Start: 12-29-2021 End: 12-29-[address] BHASKAR LEE MD [facility] Start: 12-24-2021 End: 12-25-2021 Evaluation and management of inpatient MITCHELL MARY MD [facility] Start: 12-23-2021 End: 12-24-2021 Emergency department patient visit CATHY MARQUEZ DO [facility] Start: 11-22-2021 End: 12-05-2021 Evaluation and management of inpatient CHRISTINA MARCIAL MD [facility] Start: 11-21-2021 End: 11-22-2021 Emergency department patient visit JAXON KUHN MD [facility] Start: 11-06-2021 End: 11-06-[address] LARY WHEAT DO [facility] Start: 10-08-2021 End: 10-08-[address] LARY WHEAT DO [facility] Start: 09-26-2021 End: 09-26-[address] LARY WHEAT DO [facility] Procedures Date Procedure Procedure Detail Performing Clinician Start: 09-16-[address] Saranya Lopez DO Work Phone: Start: 09-16-2025 Mean corpuscular hemoglobin concentration determination Dr. Marci Lopez DO Work Phone: Start: 09-16-[address] Marci Lopez DO Work Phone: Start: 09-16-2025 Nucleated red blood cell count procedure Dr. Marci Lopez DO Work Phone: Start: 09-16-2025 Platelet mean volume determination Dr. Jose Lopez DO Work Phone: Start: 09-16-[address] Jose Lopez DO Work Phone: Start: 09-16-2025 Urine microscopy: red cells Dr. Marci beard DO Work Phone: Start: 09-16-2025 Urnls dip stick/tablet reagent auto microscopy Dr. Marci Lopez DO Work Phone: Start: 07-09-2025 Mean corpuscular hemoglobin concentration determination [...] mcrscp w/mnl difrntl wbc count Dr. Marci oLpez DO Work Phone: Start: 06-11-[address] Saranya Lopez DO Work Phone: Start: 06-11-2025 Mean corpuscular hemoglobin concentration determination Dr. Marci Lopez DO Work Phone: Start: 06-11-[address] Marci Lopez DO Work Phone: Start: 06-11-2025 Nucleated red blood cell count procedure Dr. Marci Lopez DO Work Phone: Start: 06-11-2025 Platelet mean volume determination Dr. Jose Loepz DO Work Phone: Start: 06-07-[address] Marci magallanes DO Work Phone: Start: 06-05-2025 Endomysial antibody IgA level Dr. Marci Lopez DO Work Phone: Start: 06-02-[address] Marci Lopez DO Work Phone: Start: 06-02-[address] Marci Loepz DO Work Phone: Start: 06-02-2025 Dr. Marci [...] Phone: Start: 12-13-2024 Brncdilat rspse spmtry pre&post-brncdilat admn Marci Lopez Work Phone: Start: 11-18-2024 Computed tomography [...] DO Comment on above: Implantation Biventricular ICD ROTARY DRILL OPERATOR-D 04/23 Dr Ashley Evans Generator [employer] G247 VIGILANT X4 ROTARY DRILL OPERATOR-D Serial [id number] RA Lead [employer] 7840 Ingevity + MRI Serial [id number] 05/12/2022 RV Lead [employer] [address]75 [place] 4 Front Serial [id number] 05/12/2022 LV Lead [employer] 4674 Acuity X4 Spiral Short Serial [id number] 05/12/2022 Start: 04-21-2022 Cardiac [facility] Comment on above: Dilated left ventricle with global hypok inesia, relative septal wall hypokinesia/akinesia, and mild lateral free wall dyskinesia associated with curvilinear mesocardial LGE of the inferoseptal wall, suggesting nonischemic dilated cardiomyopathy. diminished LVEF 31.2% Start: 03-30-2022 Echocardiography [facility] Comment on above: EF 35-40%. Start: 12-03-2021 [...] MD Comment on above: Implantation Biventricular ICD ROTARY DRILL OPERATOR-D 04/23 Dr Ashley Evans Generator [employer] G247 VIGILANT X4 ROTARY DRILL OPERATOR-D Serial [id number] RA Lead [employer] 7840 Ingevity + MRI Serial [id number] 05/12/2022 RV Lead [employer] [address] [place] 4 Front Serial [id number] 05/12/2022 LV Lead [employer] 4674 Acuity X4 Spiral Short Serial [id number] 05/12/2022 Ophthalmic surgery ( qualifier value) DR LARY WHEAT DO Comment on above: CORRECTED CROSS EYES A CHILD Tonsillectomy DR LARY RUIZ DO Comment on above: A CHILD Plan of Treatment Date Care Activity Detail Author Start: 2028 RSV Vaccine (1 - 1-d ose 75+ series) RSV Vaccine (1 - 1-dose 75+ series) [facility] Start: 07-20-2027 Diabetes Screening Diabetes Screenin g [facility] Start: 12-31-2025 End: 12-31-2025 Follow-up encounter 12/31/2025 11:30 AM [facility] [address] [facility] [address] [place] [phone] Leyla Murphy MD [address] [facility] [address] [place] [address] follow up on meds for tardive Neurology Comment on above: follow up on meds fo r tardive Start: 09-17-2025 [facility] Start: 09-16-2025 Computed tomography of abdomen and pelvis with contrast [facility] Start: 09-16-2025 Radiologic exam ches t 2 views [facility] Start: 09-16-2025 End: 09-16-2025 [facility] Start: 07-25-2025 Measurement of respi ratory function [facility] Start: 07-23-2025 COVID-19 Vaccine ( season) COVID-19 Vaccine ( season) [place] Start: 07-23-2025 Influenza vaccination [facility] Start: 07-20-2025 Creatinine measurement Creatinine Le jana [place] Start: 07-20-2025 Diabetes: Estimated Glomerular Filtration Rate for Kidney [facility] Diabetes: Estimated Glomerular Filtration Rate for Kidney [facility] [place] Start: 07-20-2025 Potassium measurement Potassium Leve l [place] Start: 07-04-2025 Patient discharge [facility] Start: 07-01-2025 Following clinical p athway protocol [facility] Start: 07-01-2025 Assessment of risk o f venous thromboembolism [facility] Start: 07-01-2025 Inhalation therapy procedure [facility] Start: 07-01-2025 Insertion of cathete r into peripheral vein [facility] Start: 07-01-2025 Patient referral to dietitian [facility] Start: 07-01-2025 Providing care accor ding to standard [facility] Start: 07-01-2025 Provision of activit y privileges [facility] Start: 07-01-2025 Referral for physica l therapy [facility] Start: 07-01-2025 Referral to occupati onal therapist [facility] Start: 07-01-2025 Referral to service [facility] Start: 07-01-2025 [facility] Start: 07-01-2025 Hospital admission, emergency, from emergency room, medical nature [facility] Start: 07-01-2025 Verification routine [facility] Start: 07-01-2025 Admission procedure [facility] Start: 07-01-2025 [facility] Start: 07-01-2025 Patient referral to dietitian [facility] Start: 06-29-2025 End: 06-29-2025 Patient encounter procedure 06/29/2025 11:00 AM EDT Office Visit Neurology [address] [phone] Cecilia Owens APRN.RANGER AIDE [address] [place] [address] FOLLOW UP Neurology Comment on above: FOLLOW UP Start: 06-19-2025 End: 06-19-2025 Specialty Pharmacy 06/19/2025 7:45 AM EDT Specialty Pharmacy [facility] [address] [place], [place] [id number] [address] Pharmacist, [facility] [address] [place] [address] [id number] Refill - [place] [facility] Comment on above: Refill - [place] - Start: 06-11-2025 Referral to service [facility] Start: 06-11-2025 Patient discharge [facility] Start: 06-07-2025 End: 06-07-2025 Patient encounter procedure 06/07/2025 10:00 AM EDT Office Visit Neurology [address] [phone] Leyla Murphy MD [address] [phone] 3 month follow up - 60 minutes per [facility] Comment on above: 3 month follow up - 60 minutes per [facility] Start: 06-06-2025 Referral for physica l therapy [facility] Start: 06-06-2025 Referral to occupati onal therapist [facility] Start: 06-06-2025 Referral to service [facility] Start: 06-06-2025 Speech therapy assessment [facility] Start: 06-06-2025 Referral to gastroenterology service [facility] Start: 06-06-2025 Consultation [facility] Start: 06-04-2025 [facility] Start: 06-03-2025 Following clinical p athway protocol [facility] Start: 06-02-2025 Following clinical p athway protocol [facility] Start: 06-02-2025 Ambulation without limitation [facility] Start: 06-02-2025 Assessment of risk o f venous thromboembolism [facility] Start: 06-02-2025 Catheterization of vein [facility] Start: 06-02-2025 Inhalation therapy procedure [facility] Start: 06-02-2025 Insertion of cathete r into peripheral vein [facility] Start: 06-02-2025 Providing care accor ding to standard [facility] Start: 06-02-2025 [facility] Start: 06-02-2025 Verification routine [facility] Start: 06-02-2025 Admission procedure [facility] Start: 06-02-2025 Hospital admission, emergency, from emergency room, medical nature [facility] Start: 06-02-2025 Taking nasal swab [facility] Start: 06-02-2025 Bacteria identified in Sputum by Culture [facility] Start: 06-02-2025 End: 06-02-2025 [facility] Start: 05-23-2025 End: 05-23-2025 Specialty Pharmacy 05/23/2025 7:45 AM EDT Specialty Pharmacy [facility] [id number] [place] [address] Pharmacist, [facility] [address] [place] [address] Refill - [place] - No Answer/WAM 05/21 [facility] Comment on above: Refill - [place] - N o Answer/WAM 05/21 Start: 05-22-2025 End: 05-22-2025 [facility] Start: 05-21-2025 End: 05-21-2025 Specialty Pharmacy 05/21/2025 8:00 AM EDT Specialty Pharmacy [facility] [address] [place] [address] Drive [id number] [place] [address] Pharmacist, [facility] [place] [phone] Refill - [place] - [facility] Comment on above: Refill - [place] - Start: 05-15-2025 End: 05-15-2025 Patient encounter procedure 05/15/2025 4:00 PM EDT Office Visit Neurology [address] [place] [phone] Leyla Murphy MD [address] [place] [id number] NEW PATIENT (previous patient of Dr. Ramirez) - Essential tremors Neurology Comment on above: NEW PATIENT (previou s patient of Dr. Ramirez) - Essential tremors Start: 05-04-2025 Development of care plan [facility] Start: 05-03-2025 [facility] Start: 05-03-2025 Patient discharge [facility] Start: 05-02-2025 [facility] Start: 05-02-2025 Speech therapy management [facility] Start: 04-27-2025 [facility] Start: 04-25-2025 Egd transoral biopsy single/multiple [facility] Start: 04-25-2025 Patient discharge [facility] Start: 04-24-2025 Preparation of bowel for procedure [facility] Start: 04-24-2025 [facility] Start: 04-24-2025 Speech therapy management [facility] Start: 04-24-2025 Speech therapy assessment [facility] Start: 04-24-2025 Verification routine [facility] Start: 04-23-2025 [facility] Start: 04-23-2025 End: 04-23-2025 Specialty Pharmacy 04/23/2025 7:00 AM EDT Specialty Pharmacy [facility] [facility] [id number] [place] [address] Pharmacist, [facility] [address] [place] [address] [place] [address] Refill [facility] Comment on above: Refill [facility] Start: 04-22-2025 [facility] Start: 04-21-2025 Development of care plan [facility] Start: 04-21-2025 Developing a treatme nt plan [facility] Start: 04-20-2025 Admission procedure [facility] Start: 04-20-2025 Following clinical p athway protocol [facility] Start: 04-20-2025 Introduction of urin dl catheter [facility] Start: 04-20-2025 Measuring intake and output [facility] Start: 04-20-2025 Patient referral to dietitian [facility] Start: 04-20-2025 Referral for physica l therapy [facility] Start: 04-20-2025 Referral to occupati onal therapist [facility] Start: 04-20-2025 Referral to service [facility] Start: 04-20-2025 Vital signs measurements [facility] Start: 04-20-2025 End: 04-20-2025 [facility] Start: 04-20-2025 Patient discharge [facility] Start: 04-20-2025 [facility] Start: 04-19-2025 Following clinical p athway protocol [facility] Start: 04-19-2025 Ambulation without limitation [facility] Start: 04-19-2025 Assessment of risk o f venous thromboembolism [facility] Start: 04-19-2025 Care regimes management [facility] Start: 04-19-2025 Incentive spirometry [facility] Start: 04-19-2025 Insertion of cathete r into peripheral vein [facility] Start: 04-19-2025 Notification of physician [facility] Start: 04-19-2025 Oxygen therapy [facility] Start: 04-19-2025 Providing care accor ding to standard [facility] Start: 04-19-2025 Referral to occupati onal therapist [facility] Start: 04-19-2025 Referral to service [facility] Start: 04-19-2025 End: 04-19-2025 [facility] Start: 04-19-2025 Hospital admission, emergency, from emergency room, medical nature [facility] Start: 04-19-2025 Admission procedure [facility] Start: 04-19-2025 Consultation [facility] Start: 04-19-2025 Referral for physica l therapy [facility] Start: 04-19-2025 Referral to service [facility] Start: 04-19-2025 Inhalation therapy procedure [facility] Start: 04-04-2025 End: 04-04-2025 Patient encounter procedure 04/04/2025 12:00 PM EDT Appointment Radiology [facility] [place] [address] DUE TO PT IMPLANT- IF APPT NEEDS TO BE RESCHEDULED IT MUST BE SENT TO THE FOLLOWING STAFF MESSAGE ADDRESS: IMAGING IMPLANTS [[id number]]PACEMAKER approved to schedule by Radiology Comment on above: DUE TO PT IMPLANT- I F APPT NEEDS TO BE RESCHEDULED IT MUST BE SENT TO THE FOLLOWING STAFF MESSAGE ADDRESS: IMAGING IMPLANTS [[id number]]PACEMAKER approved to schedule by Start: 04-02-2025 End: 04-02-2025 Patient encounter procedure Cardiology Comment on above: DEVICE CHECK FOR MRI CLEARANCE CHEST XRAY FOR MRI [facility] Start: 03-11-2025 DTaP/Tdap/Td Vaccine s (2 - Td or Tdap) DTaP/Tdap/Td Vaccines (2 - Td or Tdap) [place] Start: 03-11-2025 Urine microalbumin profile DTa P,Tdap,Td Vaccine (2 - Td or Tdap) [facility] Start: 03-10-2025 [facility] Start: 02-13-2025 Patient referral [facility] Work Phone: Start: 12-13-2024 End: 12-13-2024 Patient encounter procedure 12/13/2024 8:30 AM EST Appointment [facility] [address] [place] [address] JohnMarci soto [place] [phone] [facility] Start: 12-12-2024 Patient referral [facility] Work Phone: Start: 11-22-2024 Advance Directive Discussion Advance Directive Discussion [facility] Start: 11-22-2024 Medicare Advantage A nnual Wellness Visit Medicare Advantage Annual Wellness Visit [place] Start: 11-18-2024 [facility] Start: 07-23-2024 Covid-19 Vaccine ( season) Covid-19 Vaccine () [facility] Start: 07-23-2024 Covid-19 Vaccine () Covid-19 Vaccine () [facility] Start: 07-23-2024 Influenza vaccination [facility] Start: 03-29-2024 Blood chemistry [facility] Start: 03-22-2024 Blood chemistry [facility] Start: 03-15-2024 Patient discharge [facility] Start: 03-14-2024 Referral to service [facility] Start: 03-14-2024 Development of care plan [facility] Start: 03-07-2024 Speech therapy management [facility] Start: 03-07-2024 Speech therapy assessment [facility] Start: 03-06-2024 [facility] Start: 03-02-2024 Fluid intake encouragement [facility] Start: 03-01-2024 Development of care plan [facility] Start: 03-01-2024 Developing a treatme nt plan [facility] Start: 02-29-2024 Verification routine [facility] Start: 02-29-2024 Admission procedure [facility] Start: 02-29-2024 Measuring intake and output [facility] Start: 02-29-2024 Patient referral to dietitian [facility] Start: 02-29-2024 Referral to occupati onal therapist [facility] Start: 02-29-2024 Referral to service [facility] Start: 02-29-2024 Vital signs measurements [facility] Start: 02-29-2024 [facility] Start: 02-29-2024 Patient discharge [facility] Start: 02-29-2024 Patient referral to dietitian [facility] Start: 02-26-2024 Consultation [facility] Start: 02-25-2024 End: 02-25-2024 Blood culture [facility] Start: 02-25-2024 [facility] Start: 02-25-2024 Bacteria identified in Blood by Culture Blood Culture [facility] Start: 02-22-2024 [facility] Start: 02-22-2024 Referral to occupati onal therapist [facility] Start: 02-22-2024 Referral to service [facility] Start: 02-21-2024 Application of intermittent pneumatic compression device [facility] Start: 02-21-2024 Ambulation without limitation [facility] Start: 02-21-2024 Assessment of risk o f venous thromboembolism [facility] Start: 02-21-2024 Insertion of cathete r into peripheral vein [facility] Start: 02-21-2024 Providing care accor ding to standard [facility] Start: 02-21-2024 Referral to gastroenterology service [facility] Start: 02-21-2024 [facility] Start: 02-21-2024 Following clinical p athway protocol [facility] Start: 02-21-2024 Verification routine [facility] Start: 02-21-2024 Admission procedure [facility] Start: 02-21-2024 Hospital admission, emergency, from emergency room, medical nature [facility] Start: 02-21-2024 [facility] Start: 02-21-2024 Patient referral to [facility] Start: 02-19-2024 [facility] Start: 02-19-2024 Emergency department visit moderate severity EMERGENCY DEPT VISIT LOW MDM [facility] Start: 02-19-2024 Iv infusion hydratio n each additional hour HYDRATE IV INFUSION ADD-ON [facility] Start: 02-19-2024 Iv infusion hydratio n initial 31 min-1 hour HYDRATION IV INFUSION INIT [facility] Start: 12-10-2023 [facility] Start: 12-08-2023 [facility] Start: 11-22-2023 Advance Directive Discussion Advance Directive Discussion [facility] Start: 11-22-2023 Behavioral Health Screening Behavioral Health Screening [facility] Start: 11-22-2023 Medicare Advantage A nnual Wellness Visit Medicare Advantage Annual Wellness Visit [place] Start: 10-12-2023 Patient discharge [facility] Start: 10-08-2023 Development of care plan [facility] Start: 10-08-2023 [facility] Start: 10-07-2023 Following clinical p athway protocol [facility] Start: 10-07-2023 Aspiration precautions [facility] Start: 10-07-2023 Assessment of risk o f venous thromboembolism [facility] Start: 10-07-2023 Cardiac monitoring [facility] Start: 10-07-2023 Care regimes management [facility] Start: 10-07-2023 Catheterization of vein [facility] Start: 10-07-2023 Elevation of head of bed [facility] Start: 10-07-2023 Exercises [facility] Start: 10-07-2023 Fall prevention [facility] Start: 10-07-[address] anned interventions [facility] Start: 10-07-2023 Inhalation therapy procedure [facility] Start: 10-07-2023 Insertion of cathete r into peripheral vein [facility] Start: 10-07-2023 Introduction of urin dl catheter [facility] Start: 10-07-2023 Measuring intake and output [facility] Start: 10-07-2023 Notification of physician [facility] Start: 10-07-2023 Providing care accor ding to standard [facility] Start: 10-07-2023 Provision of activit y privileges [facility] Start: 10-07-2023 Referral to occupati onal therapist [facility] Start: 10-07-2023 Referral to service [facility] Start: 10-07-2023 Speech therapy assessment [facility] Start: 10-07-2023 Tobacco use cessatio n education [facility] Start: 10-07-2023 [facility] Start: 10-07-2023 Vital signs measurements [facility] Start: 10-07-2023 Verification routine [facility] Start: 10-07-2023 Hospital admission, emergency, from emergency room, medical nature [facility] Start: 10-07-2023 Admission procedure [facility] Start: 10-07-2023 Oxygen therapy [facility] Start: 10-07-2023 [facility] Start: 10-07-2023 Patient discharge [facility] Start: 10-02-2023 Speech therapy management [facility] Start: 10-02-2023 Developing a treatme nt plan [facility] Start: 10-02-2023 Development of care plan [facility] Start: 10-01-2023 Admission procedure [facility] Start: 10-01-2023 Measuring intake and output [facility] Start: 10-01-2023 Patient referral to dietitian [facility] Start: 10-01-2023 Referral to occupati onal therapist [facility] Start: 10-01-2023 Referral to service [facility] Start: 10-01-2023 Vital signs measurements [facility] Start: 10-01-2023 End: 10-01-2023 [facility] Start: 10-01-2023 Speech therapy assessment [facility] Start: 10-01-2023 Patient discharge [facility] Start: 09-29-2023 [facility] Start: 09-28-2023 Following clinical p athway protocol [facility] Start: 09-28-2023 Cardiac monitoring [facility] Start: 09-28-2023 Catheterization of vein [facility] Start: 09-28-2023 Elevation of head of bed [facility] Start: 09-28-2023 Exercises [facility] Start: 09-28-[address] anned interventions [facility] Start: 09-28-2023 Notification of physician [facility] Start: 09-28-2023 Oxygen therapy [facility] Start: 09-28-2023 Patient referral to dietitian [facility] Start: 09-28-2023 Referral to occupati onal therapist [facility] Start: 09-28-2023 Referral to service [facility] Start: 09-28-2023 Speech therapy assessment [facility] Start: 09-28-2023 Tobacco use cessatio n education [facility] Start: 09-28-2023 [facility] Start: 09-28-2023 Vital signs measurements [facility] Start: 09-28-2023 Admission procedure [facility] Start: 09-28-2023 Hospital admission, emergency, from emergency room, medical nature [facility] Start: 09-28-2023 Oxygen therapy [facility] Start: 09-28-2023 [facility] Start: 08-07-2023 Adult depression scr eening assessment DEPRESSION SCREENING [facility] Start: 07-23-2023 COVID-19 Vaccine () COVID-19 Vaccine () [place] Start: 07-23-2023 Covid-19 Vaccine ( season) Covid-19 Vaccine () [facility] Start: 07-23-2023 Influenza vaccination C [facility] Start: 11-22-2022 ADVANCE DIRECTIVE DISCUSSION ADVANCE DIRECTIVE DISCUSSION [facility] Start: 11-22-2022 DEPRESSION ASSESSMENT DEPRESSION ASS ESSMENT [facility] Start: 10-23-2022 Adult depression scr eening assessment DEPRESSION SCREENING [facility] Start: 07-23-2022 Influenza vaccination INFLUENZA (#1) [facility] Start: 02-25-2022 COVID-19 VACCINE (4 - Booster for Moderna series) COVID-19 VACCINE (4 - Booster for Moderna series) [facility] Start: 12-22-2021 COVID-19 VACCINE (4 - Booster for Moderna series) COVID-19 VACCINE (4 - Booster for Moderna series) [facility] Start: 12-22-2021 COVID-19 VACCINE (5 - Booster for Moderna series) COVID-19 VACCINE (5 - Booster for Moderna series) [facility] Start: 12-22-2021 COVID-19 VACCINE (5 - Moderna series) COVID-19 VACCINE (5 - Moderna series) [facility] Start: 11-22-2021 ADVANCE DIRECTIVE DISCUSSION ADVANCE DIRECTIVE DISCUSSION [facility] Start: 11-22-2021 DEPRESSION ASSESSMENT DEPRESSION ASS ESSMENT [facility] Start: 02-22-2020 Colonoscopy COLONOSCOPY [facility] Start: 02-22-2020 COLORECTAL CANCER SCREENING COLORECTAL CANCER SCREENING [facility] Start: 02-22-2020 Screening for malign ant neoplasm of colon [facility] Start: 2018 BONE DENSITY BONE DENSITY [facility] Start: 2018 Bone Density Screening Bone Density Screening [facility] Start: 2018 Pneumococcal Vaccine : 65+ (1 - PCV) Pneumococcal Vaccine: 65+ (1 - PCV) [facility] Start: 2018 Pneumococcal Vaccine : 65+ (1 of 1 - PCV) Pneumococcal Vaccine: 65+ (1 of 1 - PCV) [facility] Start: 2018 Pneumococcal Vaccine : 65+ Years (1 of 1 - PCV) Pneumococcal Vaccine: 65+ Years (1 of 1 - PCV) [place] Start: 2018 PNEUMOCOCCAL: 65+ (1 - PCV) PNEUMOCOCCAL: 65+ (1 - PCV) [facility] Start: 2018 PNEUMOVAX AGE 65 AND OVER WITH 5YR LOOKBACK (#1) PNEUMOVAX AGE 65 AND OVER WITH 5YR LOOKBACK (#1) [facility] Start: 2018 Screening for osteoporosis Bone Dens ity Screening [facility] Start: 06-18-2015 Lipid 1996 panel - S george or Plasma Lipid Screening [facility] Start: 06-18-2015 Lipid panel Lipid Screening [facility] Start: 06-18-2015 LIPID SCREEN LIPID SCREEN [facility] Start: 05-06-2015 Shingrix Vaccine (2 of 3) Moran grix Vaccine (2 of 3) [facility] Start: 2013 RSV Immunization age d 60 or older (1 - 1-dose 60+ series) RSV Immunization aged 60 or older (1 - 1-dose 60+ series) [place] Start: 2013 RSV Immunization for Adults (1 - Risk 60-74 years 1-dose series) RSV Immunization for Adults (1 - Risk 60-74 years 1-dose series) [place] Start: 2013 RSV Vaccine (1 - 1-d ose 60+ series) RSV Vaccine (1 - 1-dose 60+ series) [facility] Start: 2013 RSV Vaccine (1 - Ris k 60-74 years 1-dose series) RSV Vaccine (1 - Risk 60-74 years 1-dose series) [facility] Start: 2012 DIABETES SCREEN DIABETES SCREEN [facility] Start: 2012 Diabetes Screening Diabetes Screenin g [facility] Start: 06-18-2011 Lipid panel Lipid Panel [facility] Start: 2008 Influenza vaccination LUNG CANCER [facility] Start: 2003 Influenza vaccination LUNG CANCER [facility] Start: 2003 Pneumococcal Vaccine : 50+ (1 of 1 - PCV) Pneumococcal Vaccine: 50+ (1 of 1 - PCV) [facility] Start: 2003 SHINGRIX VACCINE (1 of 2) MORAN GRIX VACCINE (1 of 2) [facility] Start: 2003 Zoster Vaccines (1 of 2) Zoste r Vaccines (1 of 2) [place] Start: 1998 COLOGUARD (FIT-DNA) COLOGUARD (FIT-D NA) [facility] Start: [address] COLONOGRAPHY [facility] Start: 1998 FECAL OCCULT BLOOD FECAL OCCULT BLOO D [facility] Start: 1998 Screening for malign ant neoplasm of colon [facility] Start: 1998 SIGMOIDOSCOPY SIGMOIDOSCOPY [facility] Start: 1993 Mammography [facility] Start: 1993 Screening for malign ant neoplasm of breast [facility] Start: 1972 DTaP/Tdap/Td Vaccine s (1 - Tdap) DTaP/Tdap/Td Vaccines (1 - Tdap) [place] Start: 1972 Pneumococcal Vaccine : 50+ Years (1 of 2 - PCV) Pneumococcal Vaccine: 50+ Years (1 of 2 - PCV) [place] Start: 1972 Urine microalbumin profile DTAP,TDAP ,TD (1 - Tdap) [facility] Start: 1971 Anxiety Screening Anxiety Screening [facility] Start: 1971 [facility]: [facility] Diabetes: Estimated Glomerular Filtration Rate for [facility] Health Diabetes: Estimated Glomerular Filtration Rate for [facility] Health [place] Start: 1971 Diabetes: Urine Albumin-Creatinine Ratio for [facility] Health Diabetes: Urine Albumin-Creatinine Ratio for [facility] Health [place] Start: 1971 HEPATITIS C SCREENING HEPATITIS C [facility] Start: 1971 Hepatitis C screening Hepatitis C [facility] Start: 1965 Depression Monitoring Depression Mon itoria [place] Start: 1965 Depression Screening Depression Scre ening [place] Start: 1963 Diabetic foot examination Diabetes: Foot Exam [place] Start: 1963 Glaucoma screening Diabetes: R etinopathy Screening [place] Start: 1963 Preventive dental service Diabetes: Dental Exam [place] Start: 1959 Pneumococcal Vaccine : 65+ Years (1 of 2 - PCV) Pneumococcal Vaccine: 65+ Years (1 of 2 - PCV) [place] Start: 1953 Creatinine measurement Creatinine Le jana [place] Start: 1953 Echocardiography Echocardiogram [facility] Start: 1953 Hemoglobin A1c measurement Rylie betes: Hemoglobin A1C [place] Start: 1953 Lipid panel Lipid Panel [facility] Start: 1953 Potassium measurement Potassium Leve l [place] Start: 1953 Screening for malign ant neoplasm of colon [place] Start: 1953 Screening for osteoporosis Bone Dens ity Scan [place] Anion gap in Serum o r Plasma [facility] Anion gap in Serum o r Plasma [facility] Anion gap in Serum o r Plasma [facility] Anion gap in Serum o r Plasma [facility] Anion gap in Serum o r Plasma [facility] BUN/Creatinine ratio [facility] BUN/Creatinine ratio [facility] BUN/Creatinine ratio [facility] BUN/Creatinine ratio [facility] BUN/Creatinine ratio [facility] Calcium [Mass/volume ] in Serum or Plasma [facility] Calcium [Mass/volume ] in Serum or Plasma [facility] Calcium [Mass/volume ] in Serum or Plasma [facility] Calcium [Mass/volume ] in Serum or Plasma [facility] Calcium [Mass/volume ] in Serum or Plasma [facility] Carbon dioxide, tota l [Moles/volume] in Central venous blood [facility] Carbon dioxide, tota l [Moles/volume] in Central venous blood [facility] Carbon dioxide, tota l [Moles/volume] in Central venous blood [facility] Carbon dioxide, tota l [Moles/volume] in Central venous blood [facility] Carbon dioxide, tota l [Moles/volume] in Central venous blood [facility] Creatinine [Mass/vol ume] in Serum or Plasma [facility] Creatinine [Mass/vol ume] in Serum or Plasma [facility] Creatinine [Mass/vol ume] in Serum or Plasma [facility] Creatinine [Mass/vol ume] in Serum or Plasma [facility] Creatinine [Mass/vol ume] in Serum or Plasma [facility] Erythrocyte mean corpuscular volume determination [facility] Erythrocyte mean corpuscular volume determination [facility] Erythrocyte mean corpuscular volume determination [facility] Erythrocyte mean corpuscular volume determination [facility] Erythrocyte mean corpuscular volume determination [facility] Glucose [Mass/volume ] in Serum or Plasma [facility] Glucose [Mass/volume ] in Serum or Plasma [facility] Glucose [Mass/volume ] in Serum or Plasma [facility] Glucose [Mass/volume ] in Serum or Plasma [facility] Glucose [Mass/volume ] in Serum or Plasma [facility] Hematocrit [Volume Fraction] of Blood [facility] Hematocrit [Volume Fraction] of Blood [facility] Hematocrit [Volume Fraction] of Blood [facility] Hematocrit [Volume Fraction] of Blood [facility] Hematocrit [Volume Fraction] of Blood [facility] Hemoglobin [Mass/vol ume] in Blood [facility] Hemoglobin [Mass/vol ume] in Blood [facility] Hemoglobin [Mass/vol ume] in Blood [facility] Hemoglobin [Mass/vol ume] in Blood [facility] Hemoglobin [Mass/vol ume] in Blood [facility] Leukocytes [#/volume ] in Blood [facility] Leukocytes [#/volume ] in Blood [facility] Leukocytes [#/volume ] in Blood [facility] Leukocytes [#/volume ] in Blood [facility] Leukocytes [#/volume ] in Blood [facility] Mean corpuscular hemoglobin concentration determination [facility] Mean corpuscular hemoglobin concentration determination [facility] Mean corpuscular hemoglobin concentration determination [facility] Mean corpuscular hemoglobin concentration determination [facility] Mean corpuscular hemoglobin concentration determination [facility] Mean corpuscular hemoglobin determination [facility] Mean corpuscular hemoglobin determination [facility] Mean corpuscular hemoglobin determination [facility] Mean corpuscular hemoglobin determination [facility] Mean corpuscular hemoglobin determination [facility] Measurement of renal function [facility] Measurement of renal function [facility] Measurement of renal function [facility] Measurement of renal function [facility] Measurement of renal function [facility] Measurement of respi ratory function [facility] End: 03-29-2026 MR Brain WO contrast MRI BRAIN [facility] Radiology Routine Essential tremor Dyskinesia, tardive 1 Occurrences starting 02/27/2025 until 03/29/2026 [facility] Work Phone: Comment on above: 1 Occurrences starti ng 02/27/2025 until 03/29/2026 Neutrophil count [facility] Neutrophil count [facility] Neutrophil count [facility] Neutrophil count [facility] Neutrophil count [facility] Neutrophil percent differential count [facility] Neutrophil percent differential count [facility] Neutrophil percent differential count [facility] Neutrophil percent differential count [facility] Neutrophil percent differential count [facility] End: 07-30-2024 NM BRAIN TREMOR SPECT/CT NM BRAIN TREMOR SPECT/CT Radiology Routine 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) Parkinsonism, unspecified Parkinsonism type (HCC) 1 Occurrences starting 07/01/2023 until 07/30/2024 [facility] Work Phone: Comment on above: 1 Occurrences starti ng 07/01/2023 until 07/30/2024 NM BRAIN TREMOR SPECT/CT NM BRAI N TREMOR SPECT/CT Radiology Routine 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) Parkinsonism, unspecified Parkinsonism type 09/21/2023 2:02 PM EDT [facility] Work Phone: OUTSIDE PROCEDURE SCAN OUTSIDE P ROCEDURE SCAN Procedures Ordered: 07/20/2024 [facility] [email or web address] [facility] Comment on above: Ordered: 07/20/2024 OUTSIDE PROCEDURE SCAN OUTSIDE P ROCEDURE SCAN Procedures Ordered: 06/01/2025 [facility] [employer] Comment on above: Ordered: 06/01/2025 Patient Education [facility] Work Phone: Patient referral [facility] Work Phone: Platelets [#/volume] in Blood [facility] Platelets [#/volume] in Blood [facility] Platelets [#/volume] in Blood [facility] Platelets [#/volume] in Blood [facility] Platelets [#/volume] in Blood [facility] Potassium measurement [facility] Potassium measurement [facility] Potassium measurement [facility] Potassium measurement [facility] Potassium measurement [facility] Red blood cell count [facility] Red blood cell count [facility] Red blood cell count [facility] Red blood cell count [facility] Red blood cell count [facility] Red cell distributio n width determination [facility] Red cell distributio n width determination [facility] Red cell distributio n width determination [facility] Red cell distributio n width determination [facility] Red cell distributio n width determination [facility] Respiratory pathogen s DNA and RNA panel - Respiratory specimen by ENRIQUE with probe detection [facility] Serum chloride measurement [facility] Serum chloride measurement [facility] Serum chloride measurement [facility] Serum chloride measurement [facility] Serum chloride measurement [facility] Sodium measurement [facility] Sodium measurement [facility] Sodium measurement [facility] Sodium measurement [facility] Sodium measurement [facility] Troponin T.cardiac [Mass/volume] in Serum or Plasma by High sensitivity method [facility] Urea nitrogen [Mass/volume] in Serum or Plasma [facility] Urea nitrogen [Mass/volume] in Serum or Plasma [facility] Urea nitrogen [Mass/volume] in Serum or Plasma [facility] Urea nitrogen [Mass/volume] in Serum or Plasma [facility] Urea nitrogen [Mass/volume] in Serum or Plasma [facility] Urine culture [facility] carotid artery duplex bilateral Vascular US carotid artery duplex bilateral CV Vascular Ultrasound Routine Dizziness and giddiness 11/10/2024 3:39 PM EST [employer] Work Phone: Walking distance 6 minutes [address] [facility] End: 07-10-2024 XR Abdomen Single view [facility] Work Phone: Comment on above: Once for 1 Occurrenc es starting 07/10/2024 until 07/10/2024 End: 06-01-2025 XR Chest 2 Views [facility] Work Phone: Comment on above: Once for 1 Occurrenc es starting 06/01/2025 until 06/01/2025 XR Chest PA and Lateral XR CHEST 2V FRONTAL/LAT Radiology Routine Presence of cardiac pacemaker 04/02/2025 9:35 AM EDT [facility] Work Phone: [facility] Immunizations Immunization Date Immunization Notes Care Provider [facility] 01-19-[address] Adrienne Byers Work Phone: [facility] 10-25-[address] Adrienne Byers Work Phone: [facility] 08-18-2023 Human rabies vaccine from Chicken fibroblast culture JAXON KUHN MD [facility] 08-11-2023 Human rabies vaccine from Chicken fibroblast culture JAXON KUHN MD [facility] 08-07-2023 Human rabies vaccine from Chicken fibroblast culture JAXON KUHN MD [facility] 08-07-2023 rabies vaccine, unspecified formulation JAXON KUHN MD [facility] 08-04-2023 Human rabies vaccine from Chicken fibroblast culture JAXON KUHN MD [facility] 10-27-2021 influenza virus vaccine, unspecified formulation DR LARY WHEAT DO [facility] 10-27-2021 influenza, injectabl e, quadrivalent, preservative free Dr. Adrienne Byers Work Phone: [facility] 10-27-2021 SARS-CoV-2 (COVID-19 ) mRNA-[address] LARY WHEAT DO [facility] 02-27-2021 SARS-CoV-2 (COVID-19 ) mRNA-12[address] LARY WHEAT DO [facility] 01-30-2021 SARS-CoV-2 (COVID-19 ) mRNA-[address] LARY WHEAT DO [facility] Comment on above: Result Comment: 2020: [id number] 11-22-2020 influenza, injectabl e, quadrivalent, preservative free Dr. Adrienne Byers Work Phone: [facility] 11-22-2020 SARS-CoV-2 (COVID-19 ) mRNA-1273 vaccine ADRIENNE YBERS DO [facility] 08-30-2020 influenza, injectabl e, quadrivalent, preservative free; Translations: [Fluarix PF Quadrivalent ] DR LARY WHEAT DO [facility] 08-03-2019 influenza virus vaccine, unspecified formulation DR LARY WHEAT DO [facility] Comment on above: Result Comment: [facility] 08-03-2019 Influenza, high dose seasonal Dr. Marci Lopez DO Work Phone: [facility] 08-03-2019 influenza, high dose seasonal, preservative-free Dr. Adrienne Byers Work Phone: [facility] 08-03-2019 Dr. Covarrubias Logs don DO Work Phone: [facility] 09-09-2018 influenza virus vaccine, unspecified formulation NOREEN HICKS MD [facility] 09-09-2018 influenza, injectabl e, quadrivalent, preservative free Dr. Adrienne Byers Work Phone: [facility] 09-03-2017 influenza virus vaccine, unspecified formulation NOREEN HICKS MD [facility] 09-03-2017 influenza, injectabl e, quadrivalent, preservative free Dr. Adrienne Byers Work Phone: [facility] 09-18-2016 influenza virus vaccine, unspecified formulation NOREEN HICKS MD [facility] 09-18-2016 influenza, injectabl e, quadrivalent, preservative free Dr. Adrienne Byers Work Phone: [facility] 03-11-2015 tetanus toxoid, redu son diphtheria toxoid, and acellular pertussis vaccine, adsorbed DR LARY WHEAT DO [facility] 03-11-2015 zoster vaccine, live DR ÁLVARO WHEAT DO [facility] 09-22-2014 Influenza virus vaccine [facility] 09-22-2014 Dr. Covarrubias Logeliseo don DO Work Phone: [facility] Payers Date Payer Category Payer Self-pay [id number] 2022 Medicare (Managed Care) [employer] G [employer]US [id number] 2022 Medicare HMO [id number] 2021 Unknown [employer]M BLUE CARD PPO OOS [id number] 2021-Present [phone] [address] [place] [address] PPO [id number] 2019 Medicare HUMANA MEDICARE [employer] MEDICARE PPO [id number] 2019-Present [phone] [address] [address] [place] [address] PPO [id number] 2019 Medicare [id number] [id number]. [id number] 2017 Unknown [id number]. 2.7.3.134861.315 2015 Unknown [id number] 2013 Medicare [id number] 1953 Unknown [id number] 2.16.840.1.569928.3.579. 2.627 1953 Unknown [id number] .16.840.1.615236.3.579. 2. 1953 Unknown [id number] 2.16.840.1.308731.3.579. 2. 1953 Unknown [id number] 2.16.840.1.512207.3.579. 2. 1953 Unknown [id number] 2.16.840.1.798462.3.579. 2. 1953 Unknown [id number] 2.16.840.1.611870.3.579. 2. 1953 Unknown [id number] 2.16.840.1.584208.3.579. 2. 1953 Unknown [id number] 2.16.840.1.466544.3.579. 2. 1953 Unknown [id number] 2.16.840.1.730465.3.579. 2. 1953 Unknown [id number] 2.16.840.1.456440.3.579. 2. 1953 Unknown [id number] 2.16.840.1.396259.3.579. 2. 1953 Unknown [id number] 2.16.840.1.657407.3.579. 2. 1953 Unknown [id number] 2.16.840.1.914780.3.579. 2. 1953 Unknown [id number] 2.16.840.1.997165.3.579. 2. 1953 Unknown [id number] 2.16.840.1.441143.3.579. 2. 1953 Unknown [id number] 2.16.840.1.742198.3.579. 2. 1953 Unknown [id number] 2.16.840.1.477876.3.579. 2. 1953 Unknown [id number] 2.16.840.1.044289.3.579. 2.627 1953 Unknown [id number] 2..840.1.482680.3.579. 2.627 1953 Unknown [id number] 2.16.840.1.769651.3.579. 2.627 Unknown [id number] 2.840.1.665481.3.579. 2.462 Unknown [id number] 2..840.1.523985.3.579. 2.462 Unknown [id number] 2.840.1.346695.3.579. 2.462 Unknown [id number] 2.840.1.967701.3.579. 2.462 Unknown [id number] 2.840.1.257044.3.579. 2.462 Unknown [id number] 2.840.1.984470.3.579. 2.462 Unknown [id number] 2.840.1.955973.3.579. 2.462 Unknown [id number] 2.840.1.562796.3.579. 2.462 Unknown [id number] 2.16.840.1.070458.3.579. 2.462 Unknown [id number] 2.840.1.161746.3.579. 2.462 Unknown [id number] 2.16840.1.449957.3.579. 2.462 Unknown [id number] 2.16840.1.232376.3.579. 2.462 Unknown [id number] 2.16840.1.991441.3.579. 2.462 Unknown [id number] 2.16.840.1.237090.3.579. 2.462 Unknown [id number] 2.16840.1.605199.3.579. 2.462 Unknown [id number] 2.16.840.1.770231.3.579. 2.462 Unknown [id number] 2.16.840.1.622614.3.579. 2.462 Unknown [id number] 2.16.840.1.344788.3.579. 2.462 Unknown [id number] 2.16.840.1.466266.3.579. 2.462 Unknown [id number] 2.16.840.1.727130.3.579. 2.462 Unknown [id number] 2.16.840.1.066412.3.579. 2.462 Unknown [id number] 2.16840.1.444187.3.579. 2.462 Unknown [id number] 2.16840.1.386835.3.579. 2.462 Unknown [id number] 2.16840.1.398607.3.579. 2.462 Unknown [id number] 2.16840.1.304405.3.579. 2.462 Unknown [id number] 2.16840.1.999240.3.579. 2.462 Unknown [id number] 2.16840.1.453918.3.579. 2.462 Unknown [id number] 2.16840.1.580857.3.579. 2.462 Unknown [id number] 2.16840.1.963609.3.579. 2.462 Unknown [id number] 2.16.840.1.269000.3.579. 2.462 Unknown [id number] 2.16.840.1.005826.3.579. 2.462 Unknown [id number] 2.16.840.1.532731.3.579. 2.462 Unknown [id number] 2.16.840.1.902989.3.579. 2.462 Unknown [id number] 2.16840.1.409250.3.579. 2.462 Unknown [id number] 2.16.840.1.697141.3.579. 2.462 Unknown [id number] 2.16.840.1.856442.3.579. 2.462 Unknown [id number] 2.16.840.1.085693.3.579. 2.462 Unknown [id number] 2.16.840.1.122760.3.579. 2.462 Unknown [id number] 2.16.840.1.505359.3.579. 2.462 Unknown [id number] 2.16.840.1.253576.3.579. 2.462 Unknown [id number] 2.16.840.1.441774.3.579. 2.462 Unknown [id number] 2.840.1.772520.3.579. 2.462 Unknown [id number] 2.840.1.288560.3.579. 2.462 Unknown [id number] 2.840.1.526268.3.579. 2.462 Unknown [id number] 2.16.840.1.834747.3.579. 2.462 Unknown [id number] 2.16840.1.912463.3.579. 2.462 Unknown [id number] 2.840.1.185666.3.579. 2.462 Unknown [id number] 2.16.840.1.167619.3.579. 2.462 Unknown [id number] 2.16840.1.953056.3.579. 2.462 Unknown [id number] 2.16.840.1.321713.3.579. 2.462 Unknown [id number] 2.16.840.1.031151.3.579. 2.462 Unknown [id number] 2.16.840.1.716157.3.579. 2.462 Unknown [id number] 2.16.840.1.788590.3.579. 2.462 Unknown [id number] 2.16.840.1.886727.3.579. 2.462 Unknown [id number] 2.16.840.1.113958.3.579. 2.462 Unknown [id number] 2.16.840.1.846437.3.579. 2.462 Unknown [id number] 2.16.840.1.115787.3.579. 2.462 Unknown [id number] 2.16.840.1.161156.3.579. 2.462 Unknown [id number] 2.16.840.1.660114.3.579. 2.462 Unknown [id number] 2.16.840.1.761461.3.579. 2.462 Unknown [id number] 2.16.840.1.790976.3.579. 2.462 Unknown [id number] 2.16.840.1.229817.3.579. 2.462 Unknown [id number] 2.16.840.1.218400.3.579. 2.462 Unknown [id number] 2.16.840.1.543591.3.579. 2.462 Unknown [id number] 2.16.840.1.678783.3.579. 2.462 Unknown [id number] 2.16.840.1.637006.3.579. 2.462 Unknown [id number] 2.16.840.1.218308.3.579. 2.462 Unknown [id number] 2.16.840.1.758015.3.579. 2.462 Unknown [id number] 2.16.840.1.763913.3.579. 2.462 Social History Date Type Detail Facility Start: 10-04-2020 End: 09-16-2025 Ex-smoker (finding) [facility] Start: 1955 Sex Assigned At Female [facility] Start: 12-23-1963 End: 12-23-2008 History of tobacco use Current smoker [facility] Start: [birth year]-23-1963 End: 12-23-2008 History of tobacco use Cigarette Smoker [facility] Start: 07-10-2021 End: 07-10-2025 Alcohol intake Current non-drinker of alcohol (finding) [facility] Start: 05-25-2022 End: 05-12-2023 Exposure to SARS-CoV-2 (event) Not sure [facility] Start: 07-10-2021 End: 12-13-2024 Cigarettes smoked current (pack per day) - Reported 1.5 [facility] Start: 07-10-2021 End: 12-13-2024 Tobacco use and exposure Smokeless tobacco non-user [facility] Start: 05-12-2023 End: 12-13-2024 Tobacco use panel [facility] Start: 10-23-2012 Adult Depression Screening Assessment 3 [facility] Start: 10-23-2021 Gender identity Identifies as female gender (finding) [facility] Start: 10-23-2021 Sexual orientation Heterosexual (fin ding) [facility] Start: 09-28-2023 End: 02-29-2024 Tobacco smoking status NHIS Unknown if ever smoked [facility] Start: 11-18-2014 None [facility] Start: 11-18-2014 Spouse/ Signif icant Other [facility] Start: 11-18-2014 Non-smoker [facility] Start: 10-01-2023 Cigarettes [facility] Start: 1955 Sex assigned at Not on file [facility] Start: 06-16-2024 End: 03-10-2025 Sex Female (finding) [place] NEGATED: Highlighted row [facility] NEGATED: Highlighted row [facility] Medical Equipment Procedure Code Equipment Code Equipment Origin al Text Equipment Identifier Dates [place] [employer] ICD G247 FDA Start: 05-12-2022 [place] [employer] ICD G247 FDA Start: 05-12-2022 [place] [employer] [place] [employer] ICD G247 FDA Start: 05-12-2022 [place] [employer] [place] [employer] ICD G247 FDA Start: 05-12-2022 [place] [employer] [place] [employer] ICD G247 FDA Start: 05-12-2022 [place] [employer] [place] [employer] ICD G247 FDA Start: 05-12-2022 [place] [employer] [place] [employer] ICD G247 FDA Start: 05-12-2022 [place] [employer] [place] [employer] ICD G247 FDA Start: 05-12-2022 [place] [employer] [place] [employer] ICD G247 FDA Start: 05-12-2022 Icd-05/12/2022 [id number] Start: 05-12-2022 Comment on above: Description: BSC G24 7 RA [id number] RV [id number] LV [id number] [place] [employer] [place] [employer] ICD G247 FDA Start: 05-12-2022 [place] [employer] ICD G247 FDA Start: 05-12-2022 [id number] Start: 05-12-2022 [id number] Start : 05-12-2022 [id number] Start : 05-12-2022 [place] [employer] [place] [employer] ICD G247 FDA Start: 05-12-2022 [place] [employer] [place] [employer] ICD G247 FDA Start: 05-12-2022 FDA Start: 05-12-2022 [place] [employer] [place] [employer] ICD G247 FDA Start: 05-12-2022 [place] [employer] [place] [employer] ICD G247 FDA Start: 05-12-2022 [place] [employer] [place] [employer] ICD G247 FDA Start: 05-12-2022 [place] [employer] [place] [employer] ICD G247 FDA Start: 05-12-2022 FDA Start: 05-12-2022 [place] [employer] [place] [employer] ICD G247 FDA Start: 05-12-2022 [place] [employer] [place] [employer] ICD G247 FDA Start: [...] Facility 07-04-2025 Functional status Ambulates;Bath room Privilege [facility] Work Phone: 06-11-2025 Functional status Bedrest [facility] Work Phone: 05-03-2025 Functional status Ambulates;Jose r;Bedside Commode [facility] Work Phone: 04-26-2025 Functional status Bedrest [facility] Work Phone: 04-25-2025 Functional status With Assist of 1 [facility] Work Phone: 04-20-2025 Functional status Ambulates;Bath room Privilege [facility] Work Phone: 04-19-2025 Functional status Standard Walker [facility] Work Phone: 03-15-2024 Functional status Ambulates;Up ad ann marie [facility] Work Phone: 02-29-2024 Functional status Chair [facility] Work Phone: 10-28-2023 Functional Status flight to bed Katie bakercarmel Katie Secor 10-12-2023 Functional status Activity Abili ty Standby Assist [facility] Work Phone: 10-11-2023 Functional status Ambulates [facility] Work Phone: 10-07-2023 Functional status Ambulates [facility] Work Phone: 10-06-2023 Functional status Rolling Walker [facility] Work Phone: 10-01-2023 Functional status Ambulates [facility] Work Phone: 08-11-2023 Functional Status Room check performed [facility] 08-04-2023 Functional Status Standard Safet y ID band on, Call device within reach, Bed in low position, Wheels locked, Upper/Half-Length side-rails up, Bedside Cart Locked, Safety level maintained [facility] 08-20-2022 Functional Status Minimum assistance [facility] 08-19-2022 Functional Status 20 [facility]-19-[facility]22 Functional Status Standard Safet y ID band on, Call device within reach, Bed in low position, Wheels locked, Upper/Half-Length side-rails up, Phone within reach, personal items within reach, Visitor at bedside, Safety level maintained [facility] 05-22-2022 Functional Status Resting [facility] 04-26-2022 Functional Status Independent [facility] 04-03-2022 Functional Status [facility] 04-03-2022 Functional Status [facility] 04-02-2022 Functional Status [facility] 04-02-2022 Functional Status [facility] 02-05-2015 Are you deaf, or do you have serious difficulty hearing No 02/05/2015 4:06 PM Armida Lowe LPN No [facility] 02-05-2015 Are you blind, or do you have serious difficulty seeing, even when wearing glasses No 02/05/2015 4:06 PM Armida Lowe LPN No [facility] 02-05-2015 Do you have serious difficulty walking or climbing stairs No 02/05/2015 4:06 PM Armida Lowe LPN No [facility] 02-05-2015 Do you have difficul ty dressing or bathing No 02/05/2015 4:06 PM Armida Lowe LPN No [facility] 02-05-2015 Because of a physica l, mental, or emotional condition, do you have difficulty doing errands alone such as visiting a physician's office or shopping No 02/05/2015 4:06 PM Armida Lowe LPN No [facility] Mental Status Date Assessment Result Facility 09-16-2025 [facility]: 07-04-2025 Cognitive function Voice/Name [facility] Work Phone: 06-11-2025 Cognitive function Voice/Name [facility] Work Phone: 05-03-2025 Cognitive function Voice/Name [facility] Work Phone: 04-25-2025 Cognitive function Voice/Name;Touch/Shaki ng [facility] Work Phone: 04-20-2025 Cognitive function Voice/Name [facility] Work Phone: 04-19-2025 Cognitive function Level Of Cons ciousness Awake;Alert;Follows Commands [facility] Work Phone: 03-15-2024 Cognitive function Voice/Name [facility] Work Phone: 03-13-2024 Cognitive function Cooperative [facility] Work Phone: 02-29-2024 Cognitive function Voice/Name [facility] Work Phone: 10-12-2023 Cognitive function Voice/Name [facility] Work Phone: 10-07-2023 Cognitive function Voice/Name [facility] Work Phone: 10-06-2023 Cognitive function Voice/Name [facility] Work Phone: 10-01-2023 Cognitive function Voice/Name [facility] Work Phone: 09-28-2023 Cognitive function Voice/Name [facility] Work Phone: 08-04-2023 Mental Status Orientation Oriented x 4 [facility] 08-20-2022 Mental Status Orientation Oriented x 4 [facility] 08-19-2022 Mental Status [facility] 05-22-2022 Mental Status Oriented x 4 [facility] 04-25-2022 Mental Status Oriented x 4 [facility] 04-03-2022 Mental Status [facility] 04-02-2022 Mental Status [facility] 02-05-2015 Because of a physica l, mental, or emotional condition, do you have serious difficulty concentrating, remembering, or making decisions No 02/05/2015 4:06 PM EDT Armida Ballard LPN No [facility] Clinical Notes 02-21-2015 to 09-03-2025 Note Date & Type Note Facility 09-03-2025 Progress note Note Date/Time September 03, 2025 2:49pm [facility] [address], [address] [place] [address] OFFICE VISIT Date of Service: 09/03/25 MR#: [id number] Acct: [id number] Name: MANSI CARO Rep #: [id number] : 1955 Provider: Dr. Clari Garcia MD Age/Sex: 70/F Location: [facility] Status: Signed Intake Vital Signs 08/06/25 15:22 09/03/25 14:27 Height 5 ft 8 in 5 ft 8 in Weight: 124 lb 4 oz BMI 18.8 BP 132/68 H Pulse 76 Intake Visit Reasons: Having trouble w/urination Chief Complaint: Having touble urinating Fender Repairer Required: No Accompanied by: Is patient in pain?: No Allergies No Known Allergies Allergy (Verified 09/03/25 14:25) Medications ?Medication ?Instructions ?Recorded ?Confirmed ?Type aspirin 81 mg tablet,delayed 81 mg PO .COMPLEX heart 1 12/01/22 09/03/25 History release rosuvastatin 20 mg tablet 20 mg PO QHS cholesterol 12/1509/03/25 History furosemide 20 mg tablet 20 mg PO QDAY PRN for 2lb we ight 06/13/24 09/03/25 History gain escitalopram oxalate 5 mg tablet 5 mg PO QDAY Mood 06/1509/03/25 History polyethylene glycol 3350 17 17 g PO DAILY Constipation 11/28/24 09/03/25 History gram/dose oral powder (Miralax) lamotrigine 100 mg tablet 100 mg PO QDAY Anxiety 01/2309/03/25 History ferrous sulfate 325 mg (65 mg 325 mg PO QDAY Supplemen t 02/13/25 09/03/25 History iron) tablet (Feosol) pantoprazole 40 mg tablet,delayed 40 mg PO DAILY 30 da ys #30 tabs 04/30/25 09/03/25 Rx release baclofen 5 mg tablet 5 mg PO DAILY SPASCITY 05/2909/03/25 History albuterol sulfate 90 mcg/actuation 1 puff inhalation Q 6H PRN PRN 07/01/25 09/03/25 History aerosol inhaler shortness of breath or wheez ing metformin 500 mg tablet 500 mg PO QDAY Diabetes 06/2309/03/25 History oxycodone-acetaminophen 5 mg-325 1 tab PO Q8H PRN rosalba re pain 07/12/25 09/03/25 History mg tablet trazodone 50 mg tablet 25 mg PO DAILY Anxiety 07/1209/03/25 History clonazepam 1 mg tablet 0.5 mg PO QHS anxiety 09/03/25 History linaclotide 145 mcg capsule 145 mcg PO QAM #30 caps 09/03/25 Rx (Linzess) fluticasone propionate 50 1 spray intranasal QDAY 08/2209/03/25 History mcg/actuation nasal spray,suspension (Flonase Allergy Relief) levofloxacin 500 mg tablet 500 mg PO QDAY 5 days #5 ta bs 09/04/25 Rx Have you fallen in the past year?: No Nurse's Note: Bladder scan PVR 18cc pain in pelvis when she wakes up in the morning [facility] History Nocturia Long COVID Duodenal stenosis Pneumonia Dyspnea Back pain History [...] (patent foramen ovale) Cardiac resynchronization therapy defibrillator (ROTARY DRILL OPERATOR-D) in place Myocarditis Hyperlipidemia Hypertension Surgical History History of cardiac catheterization Presence of stent in coronary artery History of bilateral cataract extraction History of skin surgery S/P colon polypectomy History of cardiac defibrillator placement History of cholecystectomy History of coronary artery stent placement Family History Father Heart disease Myocardial infarction Mother Anxiety and depression Suicide and self-inflicted injury from suicide age 52. Social History household members: spouse Smoking Status: Former smoker how long ago did patient quit smokin-1.5 ppd from teen until quit in 2008. alcohol intake: never substance use type: does not use caffeine: Yes seatbelt use: always do you feel safe at home: Yes additional social history: - Song [facility] Chief Complaint: Having touble urinating Details: MANSI CARO, is a 70 F. She is here with difficulty in voiding. She is having lower abdominal pain. She is not having any nausea, vomiting, fever or chills. She is taking oxycodonefor the pain. It does help. This is her same pain that she has been dealing with for the last year. She is not drinking a significant amount of fluids, only 3 cups of fluid a day. has talked to primary care doctor about this. She always feels better after getting IV fluids. She has issues with taste due to long COVID. ROS Const Constitutional: No chills, fatigue, fever(s), headache(s), night sweats, weakness, weight change, abnormal sleep pattern or change in appetite Eyes Eyes: No change in vision ENT ENT: No headache(s) or dry mouth Resp Respiratory: No cough, chest congestion, shortness of breath or wheezing Cardio Cardiology: Positive for other (No chest pain.); No shortness of breath, irregular heart rhythm or lightheadedness Gastro GI: Positive for abdominal pain (suprapubic area), constipation and other (No nausea.); No change in bowel habits, diarrhea or vomiting Musc Musculoskeletal: No abnormal gait Skin Skin: No yellowing of the eye, lesions, itchy eyes, rash or skin ulcer Neuro Neurology: No abnormal gait, confusion, dizziness, weakness, headache(s) or memory loss Psych Psychiatric: No abnormal sleep pattern, No change in appetite, No confusion and No memory loss Endo Endocrine: No fatigue, increased thirst/drinking or weight change Aller/Imm Allergy/Immunologic: No itchy eyes or wheezing Timur/Lymp Hematologic/Lymphatic: No easy bleeding, easy bruising or enlarged lymph nodes Exam Const General: cooperative, healthy appearing, comfortable and no acute distress [facility] Head: normocephalic and atraumatic Ears: hearing grossly normal bilaterally and external ears normal Nose: external nose normal Eyes General: appearance normal, both eyes and all related structures Neck Neck: normal visual inspection and trachea midline Chest Chest palpation & inspection: normal inspection of the chest Resp Effort & Inspection: normal respiratory effort, able to speak in complete sentences and symmetric chest movement Cardio Rate: regular rate GI Inspection: normal to inspection Palpation: soft and tender suprapubicly General: No CVA tenderness Musc Other: walking with walker Skin General: no rashes or lesions noted Neuro General: patient alert, patient awake, patient oriented x3 and CN's II-XI intactbilaterally Extrem General: normal to inspection Psych Appearance: grossly normal and well kempt Mental Status: mental status grossly normal Results POC Urinalysis w/Micro Office Urine Color Last Edit by Tasia Robb on 09/03/25 14:35 Office Urine Clarity Last Edit by Tasia Robb on 09/03/25 14:35 Office Urine Glucose Negative Last Edit by Tasia Robb on 09/03/25 14:3 5 Office Urine Ketones Negative Last Edit by Tasia Robb on 09/03/25 14:3 5 Office Urine Bilirubin Negative Last Edit by Tasia Robb on 09/03/25 14 :35 Office Urine Urobilinogen 0.2 mg/dL Last Edit by Tasia Robb on 5 14:35 Off Ur Spec [place] 1.015 Last Edit by Tasia Robb on 09/03/25 14:35 Office Urine pH 6 Last Edit by Tasia Robb on 09/03/25 14:35 Office Urine Protein 1+ Last Edit by Tasia Robb on 09/03/25 14:35 Office Urine Blood Trace Last Edit by Tasia Robb on 09/03/25 14:35 Office Urine Blood Hemolyzed Negative Last Edit by Tasia Robb on 09/03 14:35 Office Urine Nitrate Negative Last Edit by Tasia Robb on 09/03/25 14:3 5 Off Ur Leukocytes Positive Last Edit by Tasia Robb on 09/03/25 14:35 Off Ur WBC Microscopic Moderate Last Edit by Angelita Garcia MD on 09/03/25 14:50 Off Ur RBC Microscopic None Seen Last Edit by Angelita Garcia MD on 09/03/25 14:50 Off Ur Bacteria Microscopic Small Last Edit by Angelita Garcia MD on 5 14:50 leuks 500 Coding Level of Care Code Off vis,est,level 4 Diagnoses Overactive bladder N32.81 Lower abdominal pain R10.30 Abdominal location: lower abdomen, unspecified Chronic constipation K59.09 Urinary tract infection N39.0 Urge incontinence N39.41 Nocturia R35.1 Assessment and Plan Assessment and Plan (1) Overactive bladder: Status: Acute (2) Abdominal pain: Status: Acute Qualifiers: Abdominal location: lower abdomen, unspecified Qualified Code(s): R10.30 - Lower abdominal pain, unspecified (3) Chronic constipation: Status: Chronic (4) Urinary tract infection: Status: Inactive (5) Urge incontinence: Status: Acute (6) Nocturia: Status: Acute Orders: Orders POC UA Automated w/Microscopy 09/03/25 N39.41 - Urge incontinence Plan urine culture and treatment after results trial vaginal suppositories continue level one management with fluids etc we discussed Myrbetriq 25mg trial if this doesn't work. trial Azo 95mg TID as needed Plan Details Follow Up: 4 Weeks (PVR and med f/u) Clinical Quality Measures Falls Risk Screening/Assistive Devices Have you fallen in the past year?: No 09/04/251920 <Electronically signed by Angelita Garcia MD> Date _ Angelita Garcia MD Cosigner Signature: Date (if applicable) CC: ~ [facility] Work Phone: [phone] Telephone encounter Note* Telephone Encounter - Xiomara Perea - 08/07/2025 6:03 PM EDT Name of caller: Song Contact phone number: [phone] Relationship to Patient: spouse/SO Provider: Dr. Lopez Practice: [facility] Chief Complaint/Reason for Call: Patient Song to request refill for patient's oxyCODONE HCl (5 MG Tablet). Song stated patient is completley out and will need refill for tomorrow. Please contact Song and advise. Best time of day caller can be reached: any Patient advised that office/PCP has 24-48 business hours to return their call: Yes T [employer] [id number] Miscellaneous Notes* Telephone Encounter - Xiomara Perea - 08/07/2025 6:03 PM EDT Name of caller: Song Contact phone number: [phone] Relationship to Patient: spouse/SO Provider: Dr. Lopez Practice: [facility] Chief Complaint/Reason for Call: Patient Song to request refill for patient's oxyCODONE HCl (5 MG Tablet). Song stated patient is completley out and will need refill for tomorrow. Please contact Song and advise. Best time of day caller can be reached: any Patient advised that office/PCP has 24-48 business hours to return their call: Yes documented in this encounterSLutheran [id number] Telephone encounter Note* Telephone Encounter - Anna Zarco RN - 08/04/2025 1:33 PM EDT S: Song spoke with [facility] nurse regarding medication refill B: Onset of symptoms/concern 08/04/25 A: States patient will need refill of Oxycodone 5 mg tablets on Wednesday. States they have 3 tablets left. Song confirmed no known drug allergies and pharmacy as [facility]. R: Song understands care advice that office is closed and a message will be sent to office for review during office hours. No further needs at this time. Patient spouse instructed to call back with new or worsening symptoms. Reason for Disposition Caller requesting a CONTROLLED substance prescription refill (e.g., narcotics, ADHD medicines) Protocols used: Medication Refill and Renewal [id number] Miscellaneous Notes* Telephone Encounter - Anna Zarco RN - 08/04/2025 1:33 PM EDT S: Song spoke with [facility] nurse regarding medication refill B: Onset of symptoms/concern 08/04/25 A: States patient will need refill of Oxycodone 5 mg tablets on Wednesday. States they have 3 tablets left. Song confirmed no known drug allergies and pharmacy as [facility]. R: Song understands care advice that office is closed and a message will be sent to office for review during office hours. No further needs at this time. Patient spouse instructed to call back with new or worsening symptoms. Reason for Disposition Caller requesting a CONTROLLED substance prescription refill (e.g., narcotics, ADHD medicines) Protocols used: Medication Refill and Renewal [id number] documented in this [facility]09-04-2025 Procedure [facility]08-28-2025 Procedure [facility]08-19-2025 History of Present illness Narrative* Leonel Hurtado APRN.RANGER AIDE - 07/10/2025 10:00 AM EDT Images from the original note were not included. [facility] Initial Evaluation Recording using [employer] software for draft documentation of the visit was discussed with the patient/authorized commercial pest control representative; all questions welcomed and answered. Patient/authorized commercial pest control representative agreed to proceed Mansi Caro presents [...] - Onset in 2024. - Described as mostly complete loss of taste and smell. - Recent improvement in taste; some foods now taste okay. - Significant weight loss (15 lbs) due [...] recent pneumonia. - Nocturnal sleep described as pretty good with medication; no daytime naps. - Nocturnal [...] Taking iron supplements for anemia; prescribed by canoe maker. Tremor: - Pre-existing tremor worsened recently; no tremor in right hand. - Neurologist prescribed medication for Parkinson's disease with no improvement. - History of nystagmus and spasticity; taking Baclofen and Clonazepam. Pulmonary Issues: - Recent pneumonia with ground-glass opacities on imaging. - Oxygen saturation drops to 83% with exertion; improving with physical therapy and breathing exercises. - Follow-up with key attendant scheduled. Polypharmacy: - Previously on 25 medications; [...] BP Cuff Size: Regular Adult) Pulse 93 Temp36.9 C (98.4 F) (Temporal) Resp 20 SpO2 [...] fog (R41.89) 3. 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 Myocarditis, unspecified chronicity, unspecified myocarditis type (HCC) (I51.4) - History of myocarditis following COVID-19 vaccination in 2019; currently stable with cardiac implant in place. - Advised continuation of cardiology follow-up for ongoing management. 10. Anosmia (R43.0) 11. Ageusia (R43.2) 12. 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 - Advised essential oil smell training protocol to stimulate olfactory nerve recovery. - Discussed use of miracle fruit graham to temporarily enhance taste perception and stimulate appetite. - Advised against stellate ganglion block at this time due to current respiratory status and oxygendependence. - Provided educational materials on smell training and miracle fruit graham use. 13. Unintentional weight loss (R63.4) - Significant unintentional weight loss (15+ lbs) since most recent COVID-19 infection, likely multifactorial due to anosmia, ageusia, and deconditioning. - Advised nutritional support and monitoring to prevent further weight loss and promote recovery. 14. Respiratory failure with hypoxia, unspecified chronicity (HCC) (J96.91) - Recent pneumonia with ongoing hypoxia [...] on providing tools and resources aimed towards symptommitigation. - The patient and I reviewed available reCOVer clinic testing in detail. We discussed indications for [...] time. The patient was informed of how reCOVer clinic functions. We are a referral service. As [...] which included preparing to see the patient, [id number] patient care, completing clinical documentation, obtaining and/or reviewing separately obtained history, performing a medically appropriate examination, counseling and educating the pat ient/family/caregiver, communicating with other HCPs (not separately reported), independently interpreting results (not separately reported), and care coordination (not separately reported). Brendon Hurtado APRN.CNP July 10, 2025 10:00 AM CC: Marci Lopez DO (PCP) via [employer] fax. No referring provider defined for this encounter. [facility] NoteHNO ID: [id number] Author: LEONEL HURTADO APRN.CNP Service: ? Author Type: Nurse Practitioner Type: Progress Notes Filed: 07/10/2025 13:03 Note Text: COVID ReCOVer [facility] Initial Evaluation Recording using [employer] software for draft documentation of the visit was discussed with the patient/authorized commercial pest control representative; all questions welcomed and answered. Patient/authorized commercial pest control representative agreed to proceed Mansi Caro presents to [facility] at the request of No ref. provider [...] of Positive Test: end of 2019/beginning of 2021 x 2, January 2025 Description of their course of COVID-19 illness 1. Symptoms began on 2024 2. Hospitalization? No 3. Was the [...] - Onset in 2024. - Described as mostly complete loss of taste and smell. - Recent improvement in taste; some foods now taste okay. - Significant weight loss (15 lbs) due [...] recent pneumonia. - Nocturnal sleep described as pretty good with medication; no daytime naps. - Nocturnal [...] Taking iron supplements for anemia; prescribed by canoe maker. Tremor: - Pre-existing tremor worsened recently; no tremor in right hand. - Neurologist prescribed medication for Parkinson's disease with no improvement. - History of nystagmus and spasticity; taking Baclofen and Clonazepam. Pulmonary Issues: - Recent pneumonia with ground-glass opacities on imaging. - Oxygen saturation drops to 83% with exertion; improving with physical therapy and breathing exercises. - Follow-up with key attendant scheduled. Polypharmacy: - Previously on 25 medications; reduced to 13 with the help of a pharmacist. - Concerns about medication interactions contributing to cognitive impairment. Recent/previously completed testing since COVID-19 infection(s): EKG none on file ECHO none on file PFT 12/13/2024 (Care Everywhere) CXR 06/01/2025 (Care Everywhere) Established with the following specialists: Neuro CNR - Dr. Leyla Murphy/Cecilia Owens APRN.RANGER AIDE, last seen 06/29/2025 PMANDR - Dr. Ghazala [...] albuterol sulfate 90 mcg/ac (more content not included)...[facility]08-19-2025 Instructions* Patient Instructions* Leonel Hurtado APRN.RANGER AIDE - 07/10/2025 9:41 AM EDT Welcome to [facility]! The 'COV' represents SARS-CoV-2, also [...] virtual visit(s) as needed in which all [facility] testing, imaging, and labs will [...] results and your current symptoms. Fatigue resources: https://Naiku.[employer] Benefits[facility].org/health/symptoms/85157-cytwnss https://Naiku.[employer] Benefitsj.[facility]. [facility].org/health/diseases/92880-mnrihne-ikkdzpuqrsolcsrte-u ovxyqy-qbessco-nafvusys-me-cfs http://www.[facility].ca/ipmzuo-fhfq-rryh/Documents/post_covid-19_fatigue.pdf https://www.[facility].nhs.uk/wp-content/uploads//OH-090.63-Utmj-HCWOH- Leaflet.pdf https://V I O/wp-content/uploads//Wdxqe-ytiri-kgyeod-for-fati chelsie.pdf You may call [phone] to reach Wellness (Integrative medicine). We work [...] other three scents. -The exercise is repeated rjy-ve-jecen times a day and it is possible to get an improvement in bothobjective and subjective smell tests at three months, six months and even up to a year. -In some situations, steroid sprays might be used, too, to cause an even higher improvement. Consider trying Flonase (available fhkn-mjp-yrjqrbb) 1 spray in each nostril once daily. Technique for nasal spray administration: First, look slightly down, breathe normally, you do not need to sniff whileyou spray. To use the nose spray, place the tip in your nose with the opposite hand (left hand, right side of nose, right hand, left side of nose), and aim or point toward the outside of the nose. Donot sniff or snort medication afterwards as this can cause most of the medication to be swallowed. Rather, dab your nose with a tissue if any runs out. Miracle Fruit Berries for Taste Disruption Taste changes in patients who have long COVID are common and can reduce quality of life. So what ifyou could change your taste receptors and potentially increase the palatability of certain foods? Alana pete is a [place] plant that produces red [...] Specifically in foods that tasted metallic or bland. Miracle fruit berries can be bought on [employer]. Stomach ache and throat discomfort havebeen reported from taking the berries. If this occurs stop taking the miracle fruit. Do not take ifyou are allergic to this fruit. Stellate Ganglion [...] COVID: A case series. J Neuroimmunology, 2021). [facility] Management office is offering this intervention to patients who meet certain criteria, including completing an evaluation with ENT to rule out and treat other possible causes of taste/smell changes (polyps, lesions, severe chronic sinus congestion/inflammation,etc). [facility] specifically requests at minimum a nasal endoscopy (UPSIT test also preferred if available in ENT office). For more information on this intervention: https://www .[employer]/health/health-news/cjtu-yihos-sitt-yykgx-hpqjt-isjbudgpk-procedure- rdzv79732 https://my.[facility].org/health/treatments/31372-xahmoror-bpqjrcwq-wmxqu You will need at minimum a nasal endoscopy, plus UPSIT test if available from your evaluation with ENT. If seeing ENT outside of [facility], we will need a copy of their notes/assessment with details of requested testing (ok to send via Wheeldo of fax to [phone]). YOU MUST COMPLETE ENT EVALUATION BEFORE YOU [...] sleep and nighttime oxygen needs with your key attendant; consider a sleep study or overnight oximetry to ensure you re getting adequate rest and oxygen support while sleeping. - Continue your current iron and vitamin B12 supplements as prescribed; before adding vitamin D or other mineral supplements (copper, zinc, chromium, manganese, omega-3), confirm approval and dosage with your chute man to avoid GI side effects. - At [...] discuss a stellate ganglion block with a pain-denial management representative once your breathing is stable and you no longerrequire oxygen at rest. - Consider a referral [...] The [facility] Clinic Team documented in [facility]25 [facility]08-13-2025 Progress note Author Camacho Aguilar [facility] Note Date/Time July 04, 2025 9: 00am [facility] Medical Records Department [address] [place] [address] Progress Note - Hospitalist 07/04/25 0857 MR#: [id number] Acct: [id number] Name: MANSI CARO Rep #:[id number] : 1955 70 From: Camacho renner MD PCP: Marci Lopez DO Status:ADM I NO Location: [place] [address] Subjective Subjective Doing well, started on a [...] Freq: Status: Active Protocol: Document 07/02/25 14:18 KHUSHI (Rec: 07/02/25 14:18 KHUSHI [id number]) Nutrition Malnutrition Evidence of Yes Malnutrition Exists [...] w/ meals as ordered - consistency per SUPERVISOR WHITE SUGAR Changes Will provide fortified foods at meals [...] 38.0 L, Lymph % (Auto) 44.0 H, Phelps % (Auto) 13.0 H, Eos % (Auto) [...] DVT: Lovenox Charges/Coding Visit Charges Inpatient E&M: 57723 Subs Hosp L2 07/04/25 0900 <Electronically signed by Camacho Aguilar MD> Cosigner Signature (if applicable): CC: ~ Signed [facility] Work Phone: 1(516) 198-351808-12-2025 Progress note Author Camacho Aguilar [facility] Note Date/Time July 03, 2025 10 :54am [facility] Medical Records Department [address] [place] [address] Progress Note - Hospitalist 07/03/25 1052 MR#: [id number] Acct: [id number] Name: MANSI CARO Rep #:[id number] : 1955 70 From: Camacho renner MD PCP: Marci Lopez DO Status:ADM I NO Location: MS3 [id number] Subjective Subjective Feels little better than when [...] 07/02/25 14:18 SLA (Rec: 07/02/25 14:18 SLA [id number]) Nutrition Malnutrition Evidence of Yes Malnutrition Exists [...] w/ meals as ordered - consistency per SUPERVISOR WHITE SUGAR Changes Will provide fortified foods at meals [...] 39.9 L, Lymph % (Auto) 43.3 H, Phelps % (Auto) 13.1 H, Eos % (Auto) [...] DVT: Lovenox Charges/Coding Visit Charges Inpatient E&M: 59512 Subs Hosp L2 07/03/25 1054 <Electronically signed by Camacho Aguilar MD> Cosigner Signature (if applicable): CC: ~ Signed [facility] Work Phone: 1(717) 614-836908-11-2025 Progress note Author Camacho Aguilar [facility] Note Date/Time July 02, 2025 10 :07am [facility] Medical Records Department [address] [place] [address] Progress Note - Hospitalist 07/02/2551 MR#: [id number] Acct: [id number] Name: MANSI CARO Rep #:[id number] : 1955 70 From: Camacho renner MD PCP: Marci Lopez DO Status:ADM I NO Location: [place] [address]-1 Subjective Subjective Doing well, no issues overnight [...] Neut % (Auto) 49.2, Lymph % (Auto) 34.9,Phelps % (Auto) 13.2 H, Eos % (Auto) [...] pulmonary opacities, compatible with pneumonitis/pneumonia. Reading Location: [facility] Chest CTA 07/01/25 18:03 IMPRESSION: 1. No evidence of pulmonary embolism. 2. Stable ground-glass opacities throughout the dependent and bibasilar lungs, compatible with pneumonitis/pneumonia. Clinical correlation recommended. Reading Location: [facility] Physical Exam Narrative General: Alert, Oriented [...] DVT: Lovenox Charges/Coding Visit Charges Inpatient E&M: 15248 Subs Hosp L2 07/02/25 1007 <Electronically signed by Camacho Aguilar MD> Cosigner Signature (if applicable): CC: ~ Signed [facility] Work Phone: 1(197) 622-216708-10-2025 Discharge summary Author Bossman Sanders [facility] Note Date/Time July 01, 2025 9: 54pm [facility] Medical Records Department [address] [place] [address] Emergency Department Summary 07/01/25 MR#: [id number] Acct: [id number] Name: MANSI CARO Rep #:[id number] : 1955 70 From: Bossman Sanders DO PCP: Marci Lopez DO Status:ADM I NO Location: [address] History of Present Illness Chief Complaint: Shortness [...] recent travel or surgery. Currently not anticoagulated. [facility] Medical History Pneumonia Dyspnea Back pain [...] (patent foramen ovale) Cardiac resynchronization therapy defibrillator (ROTARY DRILL OPERATOR-D) in place Myocarditis Hyperlipidemia Hypertension Home Medications [...] 0.125 mg tablet 0.125 mg PO TID AR N dyspepsia #90 06/04/25 Unknown Rx tabs [...] DO [Primary Care Provider] - Print Language: Bhutanese What to do if you have Problems For any increased pain, shortness of breath, bleeding, nausea or vomiting, chestpain, or any unexpected problems, contact your Primary Care Provider. Call [facility] ([phone]) or report to the closest Emergency Room. Call 911 if necessary. 07/01/252153 <Electronically signed by Bossman Sanders DO> Cosigner Signature (if applicable): CC: Marci Lopez DO ~ Signed [facility] Work Phone: 1(934) 150-864108-10-2025 History and physical note Author Jose Royal [facility] Note Date/Time July 01, 2025 7: 33pm [facility] Medical Records Department [address] [place] [address] H&P Exam - Hospitalist 07/01/251926 MR#: [id number] Acct: [id number] Name: MANSI CARO Rep #:[id number] : [...] patient was doingtoo well to go to half-way facility so went home. While at home [...] safely care for her at this time. [facility] Medical History Duodenal stenosis Pneumonia Dyspnea Back [...] (patent foramen ovale) Cardiac resynchronization therapy defibrillator (ROTARY DRILL OPERATOR-D) in place Myocarditis Hyperlipidemia Hypertension Home Medications [...] 0.125 mg tablet 0.125 mg PO TID AR N dyspepsia #90 06/04/25 Unknown Rx tabs [...] additional social history: - Song FUENTES Narrative Complains of short of breath but is [...] Neut % (Auto) 49.2, Lymph % (Auto) 34.9,Phelps % (Auto) 13.2 H, Eos % (Auto) [...] pulmonary opacities, compatible with pneumonitis/pneumonia. Reading Location: [facility] Chest CTA 07/01/25 18:03 IMPRESSION: 1. No evidence of pulmonary embolism. 2. Stable ground-glass opacities throughout the dependent and bibasilar lungs, compatible with pneumonitis/pneumonia. Clinical correlation recommended. Reading Location: [facility] Assessment & Plan Assessment/Plan (1) Failure [...] full code. Charges/Coding Visit Charges Inpatient E&M: 81386 Init Hosp L2 07/01/251932 <Electronically signed by Jose Royal DO> Cosigner Signature (if applicable): CC: Dr. Jose Royal DO; Marci Lopez DO~ Signed [facility] Work Phone: 1(634) 504-534708-10-2025 Radiology Diagnostic study [facility]08-10-2025 Radiology Diagnostic study [facility]08-08-2025 NoteHNO ID: [id number] Author: CECILIA OWENS APRN.RANGER AIDE Service: ? Author Type: Nurse Practitioner Type: Progress Notes Filed: 06/29/2025 16:44 Note Text: [facility] - FOLLOW UP EVALUATION Primary Movement Disorders Neurologist: Leyla Murphy MD Primary Movement Disorders RICARDO: Marci Lopez DO [address] [facility] [address] Dear Marci Lopez DO: I had the pleasure of seeing Ms. Caro for follow-up today. As you know she is a 70 year old right-handed female with a history of left hand tremor since 2021. She is seen with her . Subjective Previous Plan- 02/27/2025 Visit: - Start taking Ingrezza 40 mg daily for mouth movements; prescription sent to [facility]. Once this is controlled [...] today. She was in the hospital in [place] for pneumonia in February. Looking into long [...] daily. (Patient taking d (more content not included)...[facility] 06-19-2025 History of Present illness Narrative* Michel Ibrahim - 06/19/2025 11:08 AM EDT Discontinuation Assessment completed for the medication Austedo XR. Patient no longer requires [facility] Patient Management Program Services at this time for this medication. Michel Ibrahim CPhT Neurology, Cardiology & Infectious Disease [facility] documented in this encounterMedina Hospital07-29-2025 NoteHNO ID: [id number] Author: ?, ?, ? Service: ? Author Type: ? Type: Progress Notes Filed: 06/19/2025 11:11 Note Text: Discontinuation Assessment completed for the medication Austedo XR. Patient no longer requires [facility] Patient Management Program Services at this time for this medication. Michel Ibrahim CPhT Neurology, Cardiology AND Infectious Disease [facility] Telephone encounter Note* Telephone Encounter - Dannie [...] weeks) Protocols used: Abdominal Pain - ADULT-AH [id number] Miscellaneous Notes* Telephone Encounter - Dannie Barros RN - 06/16/2025 4:11 PM EDT S: Patient's home phani Potts called the [...] Abdominal Pain - ADULT-AH documented in this [facility]07-21-2025 Discharge summary Author Ganesh Kiran [facility] Note Date/Time June 11, 2025 12:0 8pm [facility] Medical Records Department [address] [place] [address] Discharge Summary 06/11/25 1206 MR#: [id number] Acct: [id number] Name: MANSI CARO Rep #:[id number] : 1955 70 From: Ganesh Mera PCP: Marci Lopez DO Status:ADM I N [place] [facility] [id number] Providers Date of Admission: 06/02/25 Date of [...] further said she had outside PFT in [place] by key attendant. 06/07: On levofloxacin. 06/09: Discontinue levofloxacin. Had [...] of the bed: Discussed with the patient, residential case manager. Continue PT and OT 06/10 [...] well. Insurance company did not approve for shelter. Patient has been agreed for home discharge. Discussed with the residential case managersow manager exam General: Alert, Oriented x3, Cooperative [...] % (Auto) 60.0, Lymph % (Auto) 23.2, Phelps % (Auto) 11.5 H, Eos % (Auto) [...] Health Service Charges/Coding Visit Charges Inpatient E&M: 00806 Disch Hosp >30min 06/11/25 1208 <Electronically signed by Ganesh Kiran MD> Cosigner Signature (if applicable): CC: Dr. Ganesh Kiran MD; Marci Lopez DO~ Signed [facility] Work Phone: 1(257) 135-814207-21-2025 Discharge summary Author Ganesh Kiran [facility] Note Date/Time June 11, 2025 12:0 5pm [facility] Medical Records Department [address] [place] [address] Instructions for Home/Discharge Instructions 06/11/25 1001 MR#: [id number] Acct: [id number] Name: MANSI CARO Rep #:[id number] 36 : [...] Lopez DO; Shan Lockett DO ~ Signed [facility] Work Phone: 1(793) 663-495007-21-2025 Hospital Discharge instructionsAdditional Instructions Date of Discharge: 06/11/25[facility] Work Phone: 1(213) 553-674507-21-2025 [facility]07-20-2025 Progress note Author Ganesh Kiran [facility] Note Date/Time June 10, 2025 3:[address] [facility] Medical Records Department [address] [place] [address] Progress Note - Hospitalist 06/10/25 1544 MR#: [id number] Acct: [id number] Name: MANSI CARO Rep #:[id number] : 1955 70 From: Ganesh Mera PCP: Marci Lopez DO Status:ADM I N Location: [place] [address] Objective Data Objective Data Vital Signs: Vital [...] further said she had outside PFT in [place] by key attendant. 06/07: On levofloxacin. 06/09: Discontinue levofloxacin. Had [...] of the bed: Discussed with the patient, residential case manager. Continue PT and OT 06/10 [...] Glucose 101 Charges/Coding Visit Charges Inpatient E&M: 32507 Subs Hosp L2 06/10/25 4896 <Electronically signed by Ganesh Kiran MD> Cosigner Signature (if applicable): CC: ~ Signed [facility] Work Phone: 1(957) 444-859907-19-2025 Progress note Author Ganesh Kiran [facility] Note Date/Time June 09, 2025 1:[address] [facility] Medical Records Department [address] [place] [address] [place] [address] Progress Note - Hospitalist 06/09/25 3980 MR#: [id number] Acct: [id number] Name: MANSI CARO Rep #:[id number] : 1955 70 From: Ganesh Mera PCP: Marci Lopez DO Status:ADM I N Location: [place] [address] Objective Data Objective Data Vital Signs: Vital [...] further said she had outside PFT in [place] by key attendant. 06/07: On levofloxacin. 06/09: Discontinue levofloxacin. Had [...] of the bed: Discussed with the patient, residential case manager. Continue PT and OT Discharge [...] Glucose 101 Charges/Coding Visit Charges Inpatient E&M: 79441 Subs Hosp L2 06/09/25 1315 <Electronically signed by Ganesh Kiran MD> Cosigner Signature (if applicable): CC: ~ Signed [facility] Work Phone: 1([phone]) 982-458807-19-2025 Telephone encounter Note* Telephone Encounter - Paige JoseZeke Vick - 06/09/2025 7:46 AM EDT Name of caller Mirlande Contact phone number: [phone] Relationship to Patient: spouse/SO Provider: Dr. Marci Lopez Practice: [facility] Chief Complaint/Reason for Call: The patient , Song, states his might be released from [facility] on 06-09-2025. Also, the covering doctor at the hospital states the patient might have psychiatrist issues with 8 other things wrong with her. The patient will be discharged to [facility]. Please call the patient at [phone] to advise Best time of day caller can be reached: Anytime Patient advised that office/PCP has 24-48 business hours to return their call: Yes [id number] Miscellaneous Notes* Telephone Encounter - Paige Vick - 06/09/2025 7:46 AM EDT Name of caller Mirlande Contact phone number: [phone] Relationship to Patient: spouse/SO Provider: Dr. Marci Lopez Practice: [facility] Chief Complaint/Reason for Call: The patient , Song, states his might be released from [facility] on 06-09-2025. Also, the covering doctor at the hospital states the patient might have psychiatrist issues with 8 other things wrong with her. The patient will be discharged to [facility]. Please call the patient at [phone] to advise Best time of day caller can be reached: Anytime Patient advised that office/PCP has 24-48 business hours to return their call: Yes documented in this encounterSLutheran [id number] Progress note Author Ganesh Kiran [facility] Note Date/Time June 08, 2025 4:[address] [facility] Medical Records Department [address] [place] [address] Progress Note - Hospitalist 06/08/25 1624 MR#: [id number] Acct: [id number] Name: MANSI CARO Rep #:[id number] : 1955 70 From: Ganesh Mera PCP: Marci Lopez DO Status:ADM I N Location: [place] [address] Objective Data Objective Data Vital Signs: Vital Signs Temp Pulse Resp BP Pulse Ox O2 Del Method O2 Flow Rate 98 F 84 18 126/70 H 100 Nasal Cannula 2 07/18/25 14:30 06/08/25 14:30 06/08/25 14:30 06/08/25 14:30 [...] Neut % (Auto) 61.1, Lymph % (Auto) 26.4,Phelps % (Auto) 11.9 H, Eos % (Auto) [...] further said she had outside PFT in [place] by key attendant. 06/07: On levofloxacin. EGD 04/25/2025 Impression: - [...] of the bed: Discussed with the patient, residential case manager. Continue PT and OT Discharge [...] Glucose 101 Charges/Coding Visit Charges Inpatient E&M: 18922 Subs Hosp L2 06/08/25 4089 <Electronically signed by Ganesh Kiran MD> Cosigner Signature (if applicable): CC: ~ Signed [facility] Work Phone: 1(603) 258-190107-17-2025 Consult note Author Carlos Velázquez [facility] Note Date/Time June 11, 2025 3:38 pm [facility] Medical Records Department [address] [place] [address] Anesthesia Postop Eval II 06/07/251627 MR#: [id number] Acct: [id number] Name: MANSI CARO Rep #:[id number] : 1955 70 From: Carlos Mera PCP: Marci Lopez DO Status:ADM I N Y Race: C Location: [place] [address] Anesthesia Postop Eval I Sum Postop Eval [...] MD Cosigner Signature: Date CC: ~ Signed [facility] Work Phone: 1(449) 866-116607-17-2025 Progress note Author Ganesh Kiran [facility] Note Date/Time June 07, 2025 3:36 pm [facility] Medical Records Department [address] [place] [address] Progress Note - Hospitalist 06/07/25 1533 MR#: [id number] Acct: [id number] Name: MANSI CARO Rep #:[id number] : 1955 70 From: Ganesh Mera PCP: Marci Lopez DO Status:ADM I N Location: [place] [address] Objective Data Objective Data Vital Signs: Vital [...] further said she had outside PFT in [place] by key attendant. 06/07: On levofloxacin. EGD 04/25/2025 Impression: - [...] Glucose 101 Charges/Coding Visit Charges Inpatient E&M: 04392 Subs Hosp L2 06/07/25 1536 <Electronically signed by Ganesh Kiran MD> Cosigner Signature (if applicable): CC: ~ Signed [facility] Work Phone: 1(337) 806-907707-17-2025 Consult note Author José Miguel Heller [facility] Note Date/Time June 07, 2025 1:58 pm [facility] Medical Records Department [address] [place] [address] Anesthesia Postop Eval I 06/07/25 1357 MR#: [id number] Acct: [id number] Name: GORDOMANSI HILARIO Rep #:[id number] 07 : 1955 70 From: José Miguel Heller PCP: Marci Lopez DO Status:ADM I N Y Race: C Location: [facility] MS321 -1 Anesthesia: Postop Eval I Current Vital [...] document: Postop Eval 1 completed: Yes 06/07/25 8210 <Electronically signed by José Miguel Heller > Date _ José Miguel Heller Cosigner Signature: Date CC: ~ Signed [facility] Work Phone: 1(404) 754-603007-17-2025 Consult note Author Carlos Velázquez [facility] Note Date/Time June 07, 2025 1:18 pm [facility] Medical Records Department [address] [place] [address] Pre-Anesthesia Evaluation 06/07/25 1310 MR#: [id number] Acct: [id number] Name: MANSI CARO Rep #:[id number] : 1955 70 From: Carlos Mera PCP: Marci Lopez DO Status:ADM I N Y Race: C Location: [facility] MS321 -1 ASA Classification* ASA Classification ASA Classification: [...] 06/07/25 TSH 4.050 uIU/mL (0.300-4.200) 04/19/25 03:45 0508/16 COAG PT 13.3 SECONDS (11.7-14.9) 09/09/24 14:50 Pre-Assessment Diagnosis/Proposed Procedure Planned Operative Procedure(s): EGD with duodenal stent Anesthesia History Anesthesia History - ledge man: Anesthesia History - ledge man Hx Hospitalization Yes: IN TCU PRESENTLY 04/23/25 [...] take am of surgery PONV PONV - ledge man: PONV - ledge man Female HX of Motion Sickness HX of N/V After Surgery Non-Smoker Duration of Surgery greater than 60 minutes Number of Risk Factors PONV Score Height & Weight Height & Weight: Anesthesia: Height & Weight Height 5 ft 8 in 06/07/25 10:08 Weight: 58.2 kg 06/07/25 10:08 Body Mass Index (BMI) 19.5 06/02/25 14:27 Respiratory Assessment Respiratory Assessment - ledge man: Respiratory Tract Infection Hx - ledge man Hx Respiratory Tract Infection No 04/23/25 16:09 STOP Sleep Apnea STOP Sleep Apnea - ledge man: STOP Sleep Apnea - ledge man Hx Hypertension No 06/06/25 16:07 Hx Sleep [...] Tobacco Use History Tobacco Use History - ledge man: Tobacco Use History - ledge man Tobacco Use Cigarettes 11/13/24 13:46 Smoking Status Former smoker 06/02/25 14:27 Hx Tobacco Use No 06/02/25 14:27 Years Smoking Packs Smoked per Day Smoking Cessation Date was No - quit smoking greater 06/02/25 14:27 within the last 15 years than 15 years ago Hx Smoking Cessation Date 10/06/09 06/02/25 14:27 Hx Smoking Cessation No 06/02/25 14:27 Counseling Hematologic Medial History Hematologic Hx - ledge man: 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 Hx of Blood Transfusion Yes 06/02/25 14:27 [...] confused, unrespo /Reproduction History /Reproductive History - ledge man: /Reproductive Hx- ledge man Hx Now Gestational Age (in weeks): EDC: [...] Tablet PO Not Given DAILY@1200 [facility] Heparin Sodium (Porcine) 5,000 unit 06/02/25 22:00 06/07/25 10:47 Heparin Injection (Vial) 5,000 Unit/Ml Vial SC 5,000 unit Q12 VERONA Administration Hyoscyamine Sulfate 0.125 mg 06/02/25 14:54 06/05/25 09:51 Hyoscyamine Sulfate 0.125 Mg Tablet PO 0.125 mg TID PRN Administration dyspepsia Sodium Chloride 250 mls @ 15 mls/hr 06/02/25 15:17 IV .[id number] PRN Saline Flush Sodium Chloride 250 mls @ 15 mls/hr 06/02/25 15:17 IV .[id number] PRN Additional IVPB Infusion Sodium Chloride 250 mls @ 15 mls/hr 06/03/25 16:15 IV .[id number] PRN Saline Flush Sodium Chloride 250 mls @ 15 mls/hr 06/03/25 16:15 IV .[id number] PRN Additional IVPB Infusion Lactated Ringer's 1,000 [...] Tablet PO 50 mg QHS VERONA Administration [facility] Medical History Pneumonia Dyspnea Back pain [...] (patent foramen ovale) Cardiac resynchronization therapy defibrillator (ROTARY DRILL OPERATOR-D) in place Myocarditis Hyperlipidemia Hypertension Home Medications [...] 0.125 mg tablet 0.125 mg PO TID AR N dyspepsia #90 06/04/25 Unknown Rx tabs [...] MD Cosigner Signature: Date CC: ~ Signed [facility] Work Phone: 1(484) 699-737607-17-2025 Consult note Author Shan Lockett [facility] Note Date/Time June 07, 2025 1:03 pm [facility] Medical Records Department [address] [place] [address] Consultation - GI 06/07/25 1300 MR#: [id number] Acct: [id number] Name: MANSI CARO Rep #:[id number] 39 : 1955 70 From: Shan Lockett DO PCP: Marci Lopez DO Status:ADM I N Location: [place] [address] HPI Consult Data Date of Consult: 06/07/25 HPI Narrative Reason for Consultation: Abdominal pain with nausea vomiting HPI Narrative: MANSI CARO, is a 70 F who presented to [facility] after her physician sent her in due [...] 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 [facility] Medical History Pneumonia Dyspnea Back pain [...] (patent foramen ovale) Cardiac resynchronization therapy defibrillator (ROTARY DRILL OPERATOR-D) in place Myocarditis Hyperlipidemia Hypertension Home Medications [...] 0.125 mg tablet 0.125 mg PO TID AR N dyspepsia #90 06/04/25 Unknown Rx tabs [...] of 3. Charges/Coding Visit Charges Inpatient E&M: 78522 Init Hosp L3 06/07/25 1303 <Electronically signed by Shan Lockett DO> Cosigner Signature (if applicable): CC: Marci Lopez DO~ Signed [facility] Work Phone: 1(143) 159-803907-17-2025 Procedure [facility] 06-06-2025 Progress note Author Ganesh Kiran [facility] Note Date/Time June 06, 2025 4:53 pm [facility] Medical Records Department [address] [place] [address] Progress Note - Hospitalist 06/06/25 1339 MR#: [id number] Acct: [id number] Name: MANSI CARO Rep #:[id number] : 1955 70 From: Ganesh Mera PCP: Marci Lopez DO Status:ADM I N Location: [place] [address] Objective Data Objective Data Vital Signs: Vital [...] further said she had outside PFT in [place] by key attendant. EGD 04/25/2025 Impression: - Normal esophagus. - [...] follow-up instructions. Charges/Coding Visit Charges Inpatient E&M: 64554 Subs Hosp L2 06/06/25 4074 <Electronically signed by Ganesh Kiran MD> Cosigner Signature (if applicable): CC: ~ Signed [facility] Work Phone: 1(430) 680-172907-16-2025 Discharge summary Author Ganesh Kiran [facility] Note Date/Time June 06, 2025 12:2 6pm [facility] Medical Records Department [address] [place] [address] Discharge Summary 06/06/25 1219 MR#: [id number] Acct: [id number] Name: MANSI CARO Rep #:[id number] 24 : 1955 70 From: Ganesh Mera PCP: Marci Lopez DO Status:ADM I N Location: [place] [address] Providers Date of Admission: 06/02/25 Date of [...] Up: Marci Lopez, [Primary Care Provider] - Lluvia Kilpatrick ENERGY ADVISOR-C [Med Staff - Adv Practice Prof] - Within 1 Month (For COPD evaluation) Disposition Disposition (needs filled in before D/C Order can be placed): Home, Self Care Charges/Coding Visit Charges Inpatient E&M: 92263 Disch Hosp >30min 06/06/25 1226 <Electronically signed by Ganesh Kiran MD> Cosigner Signature (if applicable): CC: Dr. Ganesh Kiran MD; Marci Lopez DO~ Signed [facility] Work Phone: 1([phone]) 914-972407-16-2025 Discharge summary Author Ganesh Kiran [facility] Note Date/Time June 06, 2025 12:[address] [facility] Medical Records Department [address] [place] [address] Instructions for Home/Discharge Instructions 06/06/25 0955 MR#: [id number] Acct: [id number] Name: MANSI CARO Rep #:[id number] 10 : [...] - Lluvia Kilpatrick NP-C [Med Staff - [facility] Practice Prof] - Within 1 Month (For COPD evaluation) Disposition Disposition (needs filled in before D/C Order can be placed): Home, Self Care 06/06/25 1219<Electronically signed by Ganesh Kiran MD>Ganesh Kiran MD CC: Dr. Ben Johnson DO; Marci Lopez DO ~ Signed [facility] Work Phone: 1(108) 530-295507-16-2025 [facility]07-15-2025 Progress note Author Ben Johnson [facility] Note Date/Time June 05, 2025 3:[address] [facility] Medical Records Department [address] [place] [address] Progress Note - Hospitalist 06/05/25 1509 MR#: [id number] Acct: [id number] Name: MANSI CARO Rep #:[id number] 23 : 1955 70 From: Ben Johnson DO PCP: Marci Lopez DO Status:ADM I N Location: [place] [address] Subjective Subjective Patient was seen and examined [...] 35 minutes Charges/Coding Visit Charges Inpatient E&M: 77526 Subs Hosp L2 06/05/25 1512 <Electronically signed by Ben Johnson DO> Cosigner Signature (if applicable): CC: ~ Signed [facility] Work Phone: 1(195) 392-164207-14-2025 Progress note Author Ben Paulinowelia healthesther [facility] Note Date/Time June 04, 2025 6:[address] [facility] Medical Records Department [address] [place] [address] Progress Note - Hospitalist 06/04/25 1820 MR#: [id number] Acct: [id number] Name: MANSI CARO Rep #:[id number] 30 : 1955 70 From: Ben Johnson DO PCP: Marci Lopez DO Status:ADM I N Location: [place] [address] Subjective Subjective Patient was seen and examined [...] % (Auto) 64.7, Lymph % (Auto) 25.1, Phelps % (Auto) 8.2, Eos % (Auto) 1.3, [...] 35 minutes Charges/Coding Visit Charges Inpatient E&M: 27801 Subs Hosp L2 06/04/251821 <Electronically signed by Ben Johnson DO> Cosigner Signature (if applicable): CC: ~ Signed [facility] Work Phone: 1(900) 572-456607-13-2025 Progress note Author Ben Johnson [facility] Note Date/Time June 03, 2025 4:12 pm [facility] Medical Records Department [address] [place] [address] Progress Note - Hospitalist 06/03/25 1610 MR#: [id number] Acct: [id number] Name: MANSI CARO Rep #:[id number] : 1955 70 From: Ben Johnson DO PCP: Marci Lopez DO Status:ADM I N Location: [place] [address] Subjective Subjective Patient's white blood cell count [...] % (Auto) 66.4, Lymph % (Auto) 19.2, Phelps % (Auto) 12.4 H, Eos % (Auto) [...] 35 minutes Charges/Coding Visit Charges Inpatient E&M: 87124 Subs Hosp L2 06/03/25 1612 <Electronically signed by Ben Johnson DO> Cosigner Signature (if applicable): CC: ~ Signed [facility] Work Phone: 1(779) 481-832007-12-2025 Discharge summary Author Bossman Sanders [facility] Note Date/Time June 02, 2025 9:[address] [facility] Medical Records Department [address] [place] [address] Emergency Department Summary 06/02/25 MR#: [id number] Acct: [id number] Name: MANSI CARO Rep #:[id number] 17 : 1955 70 From: Bossman Sanders DO PCP: Marci Lopez DO Status:ADM I N Location: [place] [address] HPI History of Present Illness Chief Complaint: [...] of ischemic colitis. She sees Dr. Lockett chute man. Patient with prior history ofstroke and has history of a pacer defibrillator. Currently on aspirin and used to be on Plavix but states she is not currently taking that. Patient also states she has had a hard time swallowing and nothing tastes good. Intermittent nausea and vomiting PFSH [facility] Medical History Back pain History of [...] (patent foramen ovale) Cardiac resynchronization therapy defibrillator (ROTARY DRILL OPERATOR-D) in place Myocarditis Hyperlipidemia Hypertension Home Medications [...] 0.125 mg tablet 0.125 mg PO TID AR N dyspepsia #90 03/05/25 06/02/25 Rx tabs [...] normal at 1.3. LFTs were normal. BT ENERGY ADVISOR was elevated 948. Lipase was normal. CTA [...] No change since prior examination. Reading Location: [facility] EKG Initial EKG: Attestation: I personally [...] DO [Primary Care Provider] - Print Language: Bhutanese Disposition Disposition: Acute Care Hospital [facility] What to do if you have Problems For any increased pain, shortness of breath, bleeding, nausea or vomiting, chestpain, or any unexpected problems, contact your Primary Care Provider. Call [facility] ([phone]) or report to the closest Emergency Room. Call 911 if necessary. 06/02/252106 <Electronically signed by Bossman Sanders DO> Cosigner Signature (if applicable): CC: Marci Lopez DO ~ Signed [facility] Work Phone: 1(862) 563-259307-12-2025 History and physical note Author Ben Paulinowelia healthesther [facility] Note Date/Time June 02, 2025 6:[address] [facility] Medical Records Department [address] [place] [address] H&P Exam - Hospitalist 06/02/25 1801 MR#: [id number] Acct: [id number] Name: MANSI CARO Rep #:[id number] 01 : 1955 70 From: Bne Johnson DO PCP: Marci Lopez DO Status:ADM I N Location: [place] [address] HPI - General General Date of Admission: 06/02/25 Date of Service: 06/02/25 HPI Narrative MANSI CARO, is a 70 F who presents to the emergency room at [facility] after her physician sent her [...] also has a history of cerebral palsy. [facility] Medical History Back pain History of [...] (patent foramen ovale) Cardiac resynchronization therapy defibrillator (ROTARY DRILL OPERATOR-D) in place Myocarditis Hyperlipidemia Hypertension Home Medications [...] 0.125 mg tablet 0.125 mg PO TID AR N dyspepsia #90 03/05/25 06/02/25 Rx tabs [...] No change since prior examination. Reading Location: [id number] Assessment & Plan Assessment/Plan (1) Dyspnea: PLAN: [...] 75 minutes Charges/Coding Visit Charges Inpatient E&M: 59478 Init Hosp L3 06/02/25 1833 <Electronically signed by Ben Johnson DO> Cosigner Signature (if applicable): CC: Dr. Ben Johnson DO; Marci Lopez DO~ Signed [facility] Work Phone: [phone] 977-302407-12-2025 Telephone encounter Note* Telephone Encounter - Donna Vail RN - 06/02/2025 3:16 PM EDT S: Song called the clinical access center B: He called to report Mansi was admitted to the hospital today A: He wanted to thank Dr. Lopez for her advice. R: She is admitted at [facility]. Patient instructed to call back with worsening symptoms, concerns or questions. [id number] Miscellaneous Notes* Telephone Encounter - Donna Vail RN - 06/02/2025 3:16 PM EDT S: Song called the clinical access center B: He called to report Mansi was admitted to the hospital today A: He wanted to thank Dr. Lopez for her advice. R: She is admitted at [facility]. Patient instructed to call back with worsening symptoms, concerns or questions. documented in this encounterSLutheran [id number] Radiology Diagnostic study [facility]07-12-2025 Telephone encounter Note* Telephone Encounter - Paige iVck - 06/02/2025 10:28 AM EDT Name of caller requesting page: Song Phone Number of caller: [phone] Facility requesting page: The patient Spouse Reason for Page: The patient states he is taking the patient to [facility] right now [er Dr. Lopez orders. The patient O2 level this morning was 83 and her temperature is 99.1. Provider paged: Antonio Clay MD Practice Name of paged provider: [facility] Page Placed to #: Secure chat Time Page was sent or provider contacted: 10:35 am Page Content: PAGE: The patient Song, ; PT. Taylor Caro; The patient states he is taking the patient to [facility] right now per Dr. Lopez orders. The patient O2 level this morning was 83 and her temperature is 99.1. Please call the patient to advise. [id number] Miscellaneous Notes* Telephone Encounter - Paige Vick - 06/02/2025 10:28 AM EDT Name of caller requesting page: Song Phone Number of caller: [phone] Facility requesting page: The patient Spouse Reason for Page: The patient states he is taking the patient to [facility] right now [er Dr. Lopez orders. The patient O2 level this morning was 83 and her temperature is 99.1. Provider paged: Antonio Clay MD Practice Name of paged provider: [facility] Page Placed to #: Secure chat Time Page was sent or provider contacted: 10:35 am Page Content: PAGE: The patient Song, ; PTZeke Caro; The patient states he is taking the patient to [facility] right now per Dr. Lopez orders. The patient O2 level this morning was 83 and her temperature is 99.1. Please call the patient to advise. documented in this [facility]07-08-2025 Evaluation note* Diagnosis Onset Date Resolution Status Admit Date Ischemic cardiomyopathy acute J antione2024 3:08pm Presence [...] 1:47pm Presence of biventricular implantable cardioverter-defibrillator acute Jule mber 2024 1:47pm Abdominal pain acute August 06, 2025 2:41pm Nocturia acute July 2:41pm Overactive bladder acute Septem gabbie 2024 2:41pm Urge incontinence acute Septemb er 2024 2:41pm Chronic constipation chronic Sept ember 2024 2:41pm Urinary tract infection inactive S eptember 2024 2:41pm Irritable bowel syndrome acute August 29, 2025 2:03pm Ischemic colitis acute August 29, 2025 2:03pm Chronic constipation chronic Octo gabbie 2024 2:03pm Abdominal pain acute September 032024 2:11pm Nocturia acute September 03, 2025 2:11pm Overactive bladder acute Octobe r 2024 2:11pm Urge incontinence acute September 03, 2025 2:11pm Chronic constipation chronic Octo gabbie 2024 2:11pm Urinary tract infection inactive O ctober 2024 2:11pm [facility]burn[facility] Work Phone: 1(489) 282-121107-01-2025 Radiology Diagnostic study [facility]07-01-2025 Discharge summary Author Fazal Heller [facility] Note Date/Time May 22, 2025 8:43p [facility] Medical Records Department [address] [place] [address] Emergency Department Summary 05/22/25 MR#: [id number] Acct: [id number] Name: MANSI CARO Rep #:[id number] : [...] been having GI bleed in the past. [facility] Medical History Back pain History of [...] (patent foramen ovale) Cardiac resynchronization therapy defibrillator (ROTARY DRILL OPERATOR-D) in place Myocarditis Hyperlipidemia Hypertension Home Medications [...] 0.125 mg tablet 0.125 mg PO TID AR N dyspepsia #90 03/05/25 Unknown Rx tabs [...] following commands knew that she was at [facility] years 2024 Skin: Warm, dry, intact [...] Lymph % (Auto) 16.2 L 17.5 L Phelps % (Auto) 10.4 H 12.5 H Eos [...] Sl. Cloudy Urine pH 7.0 Ur Specific [place] 1.005 Urine Protein 30 H Urine Glucose [...] Colonic diverticulosis. Atherosclerosis as above. Reading Location: [place] [address] Discharge Plan Triage Chief Complaint: Abd Pain [...] PO .COMPLEX Rx Instructions: 75 mg orally Gumaro, Wednesday, Wednesday; hyoscyamine sulfate 0.125 mg tablet [...] urine culture with your doctor. Print Language: Bhutanese Disposition Disposition: Home, Self Care What to do if you have Problems For any increased pain, shortness of breath, bleeding, nausea or vomiting, chestpain, or any unexpected problems, contact your Primary Care Provider. Call [facility] ([phone]) or report to the closest Emergency Room. Call 911 if necessary. 05/22/252042 <Electronically signed by Fazal Heller DO> Cosigner Signature (if applicable): CC: Marci Lopez DO ~ Signed [facility] Work Phone: 1(416) 336-893306-30-2025 NoteHNO ID: [id number] Author: DONOVAN LOUISE RPh Service: ? Author [...] been reviewed prior to dispensing the medication. Window Cleaner Assessment Patient confirmed: Yes Med/dose confirmed: Yes Missed doses: No Estimated days supply on hand: 7 Next cycle/dose due: 05/23/25 Copay amount: 0 Delivery method: FedEx Signature required: Waived on patient request Delivery address: [address] [address] Delivery date: 05/24/25 Questions or concerns for [...] facility-administered medications on file prior to visit. [facility] CLINICAL ASSESSMENT - [...] and monitor patients closely (more content not included)...[facility]06-09-2025 Discharge summary Author Alonso Marte [facility] Note Date/Time April 30, 2025 7:13p m [facility] Medical Records Department [address] [place] [address] Discharge Summary 04/30/25 1901 MR#: [id number] Acct: [id number] Name: MANSI CARO Rep #:[id number] 00 : 1955 70 From: Alonso Marte MD PCP: Marci Lopez DO Status:ADM I N Location: [place] [address] Providers Date of Admission: 04/20/25 Primary Care [...] ___x_ GRD contraindicated. 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 The following psychotropic medication was present [...] __x__ GRD contraindicated. 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 The following psychotropic medication was present [...] __x__ GRD contraindicated. 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 Medications at Discharge Home Medications clonazepam [...] ileum was normal. Discharge home with 05/03/2025, [facility] PT. Physical Exam Const alert General [...] % (Auto) 55.4, Lymph % (Auto) 28.3, Phelps % (Auto) 10.9 H, Eos % (Auto) [...] Order can be placed): Home, Self Care 04/30/25 191 <Electronically signed by Alonso Marte MD> Cosigner Signature (if applicable): CC: Dr. Alonso [place] MD; Marci Lopez DO~ Signed [facility] Work Phone: 1([phone]) 467-231506-09-2025 Discharge summary [facility] Medical Records Department [address] [place] [address] Discharge Summary 04/30/25 190 MR#: [id number] Acct: [id number] Name: MANSI CARO Rep #:[id number] 00 : 1955 70 From: Alonso Marte MD PCP: Marci Lopez DO Status:ADM I N Location: [place] [address] Providers Date of Admission: 04/20/25 Primary Care [...] ___x_ GRD contraindicated. Reason contraindicated: stable chronic assisted use. The following psychotropic medication was present [...] __x__ GRD contraindicated. 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 The following psychotropic medication was present [...] __x__ GRD contraindicated. Reason contraindicated: stable chronic assisted use. Medications at Discharge Home Medications clonazepam [...] ileum was normal. Discharge home with 05/03/2025, [facility] PT. Physical Exam Const alert General [...] Neut% (Auto) 55.4, Lymph % (Auto) 28.3, Phelps % (Auto) 10.9 H, Eos % (Auto) [...] Alonso [place] MD; Marci Lopez DO~ Signed [facility]06-09-2025 [facility]06-04-2025 Consult note Author Melanie Muñoz [facility] Note Date/Time April 25, 2025 8:26a m [facility] Medical Records Department [address] [place] [address] Anesthesia Postop Eval II 04/25/25 0823 MR#: [id number] Acct: [id number] Name: MANSI CARO Rep #:[id number] : 1955 70 From: Melanie Muñoz CRNA PCP: Marci Lopze DO Status:REG S DC Y Race: C Location: [address] Anesthesia Postop Eval I Sum Postop [...] No 04/25/25 0823 <Electronically signed by Melanie garrido CRNA> Date _ Melanie Muñoz CRNA Cosigner Signature: Date CC: ~ Signed [facility] Work Phone: 1(448) 441-289406-04-2025 Consult note Author José Miguel Heller [facility] Note Date/Time April 25, 2025 7:57a keven [facility] Medical Records Department [address] [place] [address] [place] [address] Anesthesia Postop Eval I 04/25/256 MR#: [id number] Acct: [id number] Name: MANSI CARO Rep #:[id number] 03 : 1955 70 From: José Miguel Heller PCP: Marci Lopez DO Status:REG S DC Y Race: C Location: [address] Anesthesia: Postop Eval I Current Vital [...] Miguel Gallo Signature: Date CC: ~ Signed [facility] Work Phone: 1(371) 546-652306-04-2025 Consult note Author Palmer [facility] Note Date/Time April 25, 2025 7:06a [facility] Medical Records Department [address] [place] [address] Pre-Anesthesia Evaluation 04/25/25 0701 MR#: [id number] Acct: [id number] Name: MANSI CARO Rep #:[id number] : 1955 70 From: Palmer Gallo MD PCP: Marci Lopez DO Status:REG S DC Y Race: C Location: [place] [address] ASA Classification* ASA Classification ASA Classification: 4 [...] Procedure(s): COLONOSCOPY/EGD Anesthesia History Anesthesia History - ledge man: Anesthesia History - ledge man Hx Hospitalization Yes: IN TCU PRESENTLY 04/23/25 [...] take am of surgery PONV PONV - ledge man: PONV - ledge man Female Yes 04/23/25 16:09 HX of Motion [...] 04/25/25 06:48 Respiratory Assessment Respiratory Assessment - ledge man: Respiratory Tract Infection Hx - ledge man Hx Respiratory Tract Infection No 04/23/25 16:09 STOP Sleep Apnea STOP Sleep Apnea - ledge man: STOP Sleep Apnea - ledge man Hx Hypertension Yes: CONTROLLED ON MED 04/23/25 [...] Tobacco Use History Tobacco Use History - ledge man: Tobacco Use History - ledge man Tobacco Use Cigarettes 11/13/24 13:46 Smoking Status Former smoker 04/23/25 16:09 Hx Tobacco Use No 04/23/25 16:09 Years Smoking Packs Smoked per Day Smoking Cessation Date was Yes - quit smoking within 15 04/23/25 16:09 within the last 15 years years Hx Smoking Cessation Date 10/06/09 04/23/25 16:09 Hx Smoking Cessation No 04/23/25 16:09 Counseling Hematologic Medial History Hematologic Hx - ledge man: 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 Hx of Blood Transfusion No 04/23/25 16:09 [...] confused, unrespo /Reproduction History /Reproductive History - ledge man: /Reproductive Hx- ledge man Hx Now No 04/23/25 16:09 Gestational Age [...] (patent foramen ovale) Cardiac resynchronization therapy defibrillator (ROTARY DRILL OPERATOR-D) in place Myocarditis Hyperlipidemia Hypertension Home Medications [...] 0.125 mg tablet 0.125 mg PO TID AR N dyspepsia #90 03/05/25 Unknown Rx tabs [...] MD Cosigner Signature: Date CC: ~ Signed [facility] Work Phone: 1(545) 791-586606-04-2025 History and physical note Author Shan Friend [facility] Note Date/Time April 25, 2025 6:47a m [facility] Medical Records Department [address] [place] [address] History & Physical Exam 04/25/25 0645 MR#: [id number] Acct: [id number] Name: MANSI CARO Rep #:[id number] : 1955 70 From: Shan Lockett DO PCP: Marci Lopez DO Status:REG S DC Location: [place] [address] HPI - General General Date of Admission: [...] 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 She endorses some lower abd pain today. SHe is having a bm every two days while on Linzess 72 mcg and miralax. [facility] Medical History Back pain History of [...] (patent foramen ovale) Cardiac resynchronization therapy defibrillator (ROTARY DRILL OPERATOR-D) in place Myocarditis Hyperlipidemia Hypertension Home Medications [...] 0.125 mg tablet 0.125 mg PO TID AR N dyspepsia #90 03/05/25 Unknown Rx tabs [...] (if applicable): CC: Marci Lopez DO; Shan Lockett, ~ Signed [facility] Work Phone: 1(963) 830-205606-04-2025 Procedure [facility] 04-25-2025 Procedure [facility]06-04-2025 Procedure note [facility]06-04-2025 Procedure [facility] 04-25-2025 [facility]06-02-2025 History of Present illness Narrative* Esther Postkatelynnelsa - 04/23/2025 10:27 AM EDT [facility] [...] been reviewed prior to dispensing the medication. Window Cleaner Assessment Patient confirmed: Yes Med/dose confirmed: Yes Supplies needed: No supplies needed Missed doses: No Estimated days supply on hand: 10 Next cycle/dose due: 04/24/25 Copay amount: 0 Payment confirmed: Yes Delivery method: FedEx Signature required: No Delivery address: [facility] [place] [address] Delivery date: 04/26/25 Questions or concerns for [...] facility-administered medications on file prior to visit. [facility] SPECIALTY CLINICAL ASSESSMENT - [...] monitor patients closely for evidence of excessive CARVER HAND depression (ie, respiratory depression, hypotension, sedation, or coma). Vaccines Est. Tx Plan Start Date: No information available Estimated Start Date Info: No information available Est. Estimated Treatment Duration: No information available Deisi Post CPhT [facility] Specialty Pharmacy, Inflammatory P: [phone] F: [phone] documented in [facility]-2025 NoteHNO ID: [id number] Author: WESLEY HAYES [facility] Service: ? Author Type: ? Type: Progress [...] Hayes, PharmD, BCPS, CSP, MSCS Clinical Pharmacist [facility] P: ; F: Pool: P [facility] 3 Window Cleaner Assessment Patient confirmed: Yes Med/dose confirmed: Yes Supplies needed: No supplies needed Missed doses: No Estimated days supply on hand: 10 Next cycle/dose due: 04/24/25 Copay amount: 0 Payment confirmed: Yes Delivery method: FedEx Signature required: No Delivery address: [address] [place] [address] Delivery date: 04/26/25 Questions or concerns for [...] facility-administered medications on file prior to visit. [facility] SPECIALTY CLINICAL ASSESSMENT - [...] treatment options are inadequa (more content not included)...[facility] 04-21-2025 Progress note Author Talat Cameron [facility] Note Date/Time April 21, 2025 6:13p m [facility] Medical Records Department [address] [place] [address] Progress Note - Pharmacy 04/21/25 1122 MR#: [id number] Acct: [id number] Name: MANSI CARO Rep #:[id number] : 1955 70 From: Talat Cameron PCP: Marci Lopez DO Status:ADM I N Location: TCU [place] [address] Documented by User: Talat Cameron 04/21/25 12:12 [...] 75 Mg Tablet PO MoWeFr [facility] Escitalopram Oxalate 5 mg 04/21/25 10:00 04/21/25 09:02 Escitalopram Oxalate 10 Mg Tablet PO 5 mg DAILY VERONA Administration Ferrous Sulfate 325 mg 04/21/25 12:00 Ferrous Sulfate 325 Mg Tablet PO DAILY@1200 VERONA Furosemide 20 mg 04/20/25 16:41 Furosemide 20 Mg Tablet PO DAILY PRN PRN for 2lb weight gain Protocol Glycerin/Hypromellose/Polyethylene 1 drp 04/20/25 18:04 Glycerin/Hypromellose/Qpd237 15 Ml Bottle EACH EYE Q1H PRN [...] PO daily. This is a stable chronic terminal operations supervisor medication, GDR not recommended. Monitor for efficacy [...] Talat Cameron Cosigner Signature (if applicable): 04/21/25 5453 <Electronically signed by Alonso aMrte MD> CC: ~ Signed [facility] Work Phone: 1(786) 822-547905-31-2025 Progress note [facility] Medical Records Department [address] [place] [address] Progress Note - Pharmacy 04/21/25 1122 MR#: [id number] Acct: [id number] Name: MANSI CARO Rep #:[id number] : 1955 70 From: Talat Cameron PCP: Marci Lopez DO Status:ADM I N Location: TCU [facility]- Documented by User: Talat Cameron 04/21/25 [...] gain Protocol Glycerin/Hypromellose/Polyethylene 1 drp 04/20/25 18:04 Glycerin/Hypromellose/Osy433 15 Ml Bottle EACH EYE Q1H PRN PRN Dry eyes Hyoscyamine Sulfate 0.125 mg 04/20/25 18:01 Hyoscyamine Sulfate 0.125 Mg Tablet PO TID PRN dyspepsia Lamotrigine 100 mg 04/21/25 10:00 04/21/25 09:02 Lamotrigine 100 Mg Tablet PO 100 mg DAILY VERONA Administration Metformin HCl 500 mg 04/21/25 08:00 04/21/25 09:00 Metformin Hcl 500 Mg Tablet PO 500 mg DAILYCM [facility] Administration Metoprolol Succinate 25 mg 04/21/25 10:00 04/21/25 09:03 Metoprolol(Xl)Succ 25 Mg Tablet PO 25 mg DAILY VERONA Administration Protocol Non-Formulary Medication 145 mcg 04/21/25 10:00 Linaclotide [Linzess] PO QAM [facility] Oxycodone HCl 5 mg 04/20/25 18:07 Oxycodone [...] PO daily. This is a stable chronic terminal operations supervisor medication, GDR not recommended. Monitor for efficacy [...] Recommendations by Pharmacy Agree 04/21/25 1212 Talat Gallo Signature (if applicable): 04/21/25 1813 CC: ~ Signed [facility]05-30-2025 History and physical note Author Alonso Estuardo [facility] Note Date/Time April 20, 2025 4:53p m [facility] Medical Records Department [address] [place] [address] History & Physical Exam 04/20/25 1624 MR#: [id number] Acct: [id number] Name: MANSI CARO Rep #:[id number] : 1955 70 From: Alonso Marte MD PCP: Marci Lopez DO Status:ADM I N Location: TCU TCU-1 HPI - General General Date of Admission: 04/20/25 Date of Service: 04/20/25 Chief Complaint: Here for rehabilitation. HPI Narrative MANSI CARO, is a 70 Female who presents with followin04/19/2025 [facility] ED weakness. Walks with walker at baseline. Not eating, not drinking for weeks. Too weak to get OOB. Patient concerned with urinary tract infection. Bloodwork okay, urinalysis okay. Normal saline 1 liter IV fluid bolus given. unable to care for her at home. PT/OT for placement. 04/19/2025 Admit [facility]. PT/OT/CM for SNF placement. No reversible etiology for weakness found. 04/20/2025 Resident vomited twice, vomitus appeared to be food, antiemetics givenwhich made her loopy. 04/20/2025 Admit to TCU with debility, here for rehabilitation, strengthening, prior to discharge home with . 04/25/2025 Dr. Lockett planning EGD/colonoscopy for anemia, +hemoccult, ischemic colitis. Dr. Garcia planning cystoscopy in office, date unknown. [facility] Medical History (Updated 04/20/25 @ 16:34 by [...] (patent foramen ovale) Cardiac resynchronization therapy defibrillator (ROTARY DRILL OPERATOR-D) in place Myocarditis Hyperlipidemia Hypertension Home Medications [...] 0.125 mg tablet 0.125 mg PO TID AR N dyspepsia #90 03/05/25 Unknown Rx tabs [...] Yes additional social history: - Song GINA Constitutional Constitutional: Reports weakness; Denies chills, fever(s) [...] ___x_ GRD contraindicated. Reason contraindicated: stable chronic assisted use. The following psychotropic medication was present [...] __x__ GRD contraindicated. 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 The following psychotropic medication was present [...] __x__ GRD contraindicated. 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 04/20/25 1907 <Electronically signed by Alonso Marte MD> Cosigner Signature (if applicable): CC: Dr. Alonso Marte MD; Marci Lopez DO~ Signed [facility] Work Phone: 1(163) 296-220405-30-2025 Evaluation note* Diagnosis Onset Date Resolution Status [...] acute gabbie 2024 2:41pm [facility]:41[facility] Chronic constipation chronic Jul emb2024 2:41pm Urinary tract infection inactive S eptember 2024 2:41pm [facility] Work Phone: 1(964) 295-430205-30-2025 History and physical note [facility] Medical Records Department [address] [place] [address] History & Physical Exam 04/20/25 1624 MR#: [id number] Acct: [id number] Name: MANSI CARO Rep #:[id number] : 1955 70 From: Alonso Marte MD PCP: Marci Lopez DO Status:ADM I N Location: U TCU22-1 HPI - General General Date of Admission: 04/20/25 Date of Service: 04/20/25 Chief Complaint: Here for rehabilitation. HPI Narrative MANSI CARO, is a 70 Female who presents with followin04/19/2025 [facility] ED weakness. Walks with walker at baseline. Not eating, not drinking for weeks. Too weak to get OOB. Patient concerned with urinary tract infection. Bloodwork okay, urinalysis okay. Normal saline 1 liter IV fluid bolus given. unable to care for her at home. PT/OT for placement. 04/19/2025 Admit [facility]. PT/OT/CM for SNF placement. No reversible etiology for weakness found. 04/20/2025 Resident vomited twice, vomitus appeared to be food, antiemetics givenwhich made her loopy. 04/20/2025 Admit to TCU with debility, here for rehabilitation, strengthening, prior to discharge home with . 04/25/2025 Dr. Lockett planning EGD/colonoscopy for anemia, +hemoccult, ischemic colitis. Dr. Garcia planning cystoscopy in office, date unknown. [facility] Medical History (Updated 04/20/25 @ 16:34 by [...] (patent foramen ovale) Cardiac resynchronization therapy defibrillator (ROTARY DRILL OPERATOR-D) in place Myocarditis Hyperlipidemia Hypertension Home Medications [...] 0.125 mg tablet 0.125 mg PO TID AR N dyspepsia #90 03/05/25 Unknown Rx tabs clopidogrel 75 mg tablet 75 mg PO .COMPLEX Antiplatel et 04/19/25 04/20/25 13:05 History deutetrabenazine 6 mg 6 mg PO DAILY involuntary Mo vements 04/19/25 04/20/25 08:50 History tablet,extended release 24 hr (Austedo XR) oxycodone-acetaminophen 5 mg-325 1 tab PO Q6H PRN PRN severe pain 05/29/25 Unknown History mg tablet phenazopyridine 100 mg [...] ___x_ GRD contraindicated. Reason contraindicated: stable chronic assisted use. The following psychotropic medication was present [...] __x__ GRD contraindicated. Reason contraindicated: stable chronic assisted use. The following psychotropic medication was present [...] __x__ GRD contraindicated. 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 04/20/[address] [facility] Signature (if applicable): CC: Dr. Alonso Marte MD; Marci Lopez DO~ Signed [facility]05-30-2025 [facility]05-30-2025 Discharge summary [facility] Medical Records Department [address] [place] [address] Discharge Summary 04/20/25 1449 MR#: [id number] Acct: [id number] Name: MANSI CARO Rep #:[id number] : 1955 70 From: Maximo levin DO PCP: Marci Lopez DO Status:ADM I NO [facility] Prov[facility] Date of Admission: 04/19/25 Date of [...] is a 70-year-old female who presented to [facility] ED on 04/19/2025 with worsening weakness. Short [...] in before D/C Order can be placed): Long Term Facility Charges/Coding Visit Charges Inpatient E&M: 74213 Disch Hosp >30min 04/20/25 145 Cosigner Signature (if applicable): CC: Dr. Maximo Orosco DO; Marci Lopez DO~ Signed [facility]05-30-2025 Discharge summary [facility] Medical Records Department [address] [place] [address] Transfer to [facility] MR#: [id number] Acct: [id number] Name: MANSI CARO Rep #:[id number] : 1955 70 From: Maximo levin DO PCP: Marci Lopez DO Status:ADM I NO Certification of patient admission REQUIRED AT TIME OF ADMISSION. I CERTIFY THAT POST-HOSPITAL F SERVICES ARE REQUIRED TO BE GIVEN ON AN IN-PATIENT BASIS BECAUSE OF THE ABOVE NAMED PATIENT'S NEED FOR PENITENTIARY CARE ON A CONTINUING BASIS FOR THE CONDITION(S) FOR WHICH HE/SHE WAS RECEIVING IN-PATIENT HOSPITAL SERVICES PRIOR TO HIS/HER TRANSFER TO THE [facility]. 04/20/25 1454 Diet Diet Order/Speech Therapy: INPATIENT [...] is a 70-year-old female who presented to [facility] ED on 04/19/2025 with worsening weakness. Short [...] in before D/C Order can be placed): Long Term Facility 04/20/25 1454 Cosigner Signature (if applicable): CC: Marci Lopez DO ~ [facility]05-30-2025 [facility]05-29-2025 History and physical note Author Maximo Orosco [facility] Note Date/Time April 19, 2025 2:36p m [facility] Medical Records Department [address] [place] [address] H&P Exam - Hospitalist 04/19/25 1124 MR#: [id number] Acct: [id number] Name: MANSI CARO Rep #:[id number] : 1955 70 From: Maximo levin DO PCP: Marci Lopez DO Status:ADM I NO Location: [place] 272262-1 HPI - General General Date of Admission: 04/19/25 Date of Service: 04/19/25 Chief Complaint: Worsening weakness HPI Narrative MANSI CARO, is a 70 F who presented to [facility] ED on 04/19/2025 with worsening weakness. Patient [...] this morning. No other concerns at thistime. [facility] Medical History Ischemic colitis History of [...] (patent foramen ovale) Cardiac resynchronization therapy defibrillator (ROTARY DRILL OPERATOR-D) in place Myocarditis Hyperlipidemia Hypertension Home Medications [...] 0.125 mg tablet 0.125 mg PO TID AR N dyspepsia #90 03/05/25 Unknown Rx tabs [...] (Auto) 78.3 H, Lymph % (Auto) 10.4 L,Phelps % (Auto) 8.2, Eos % (Auto) 2.5, [...] Clarity Clear, Urine pH 6.5, Ur Specific [place] 1.010, Urine Protein 15 H, Urine Glucose [...] is a 70-year-old female who presented to [facility] ED on 04/19/2025 with worsening weakness. 1. Acute on chronic debility ? Admit under observation status to [facility]. PT/OT/case management consulted. Patient with chronic [...] 55 minutes. Charges/Coding Visit Charges Inpatient E&M: 55535 Init Hosp L2 04/19/25 3321 <Electronically signed by Maximo Orosco DO> Cosigner Signature (if applicable): CC: Dr. Maximo Orosco DO; Marci Lopez DO~ Signed [facility] Work Phone: 1(633) 974-806105-29-2025 History and physical note [facility] Medical Records Department [address] [place] [address] H&P Exam - Hospitalist 04/19/25 1124 MR#: [id number] Acct: [id number] Name: MANSI CARO Rep #:[id number] : 1955 70 From: Maximo levin DO PCP: Marci Lopez DO Status:ADM I NO Location: [facility] BM[facility]-2 HPI - General General Date of Admission: 04/19/25 Date of Service: 04/19/25 Chief Complaint: Worsening weakness HPI Narrative MANSI CARO, is a 70 F who presented to [facility] ED on 04/19/2025 with worseningweakness. Patient typically [...] this morning. No other concerns at thistime. [facility] Medical History Ischemic colitis History of [...] (patent foramen ovale) Cardiac resynchronization therapy defibrillator (ROTARY DRILL OPERATOR-D) in place Myocarditis Hyperlipidemia Hypertension Home Medications [...] 0.125 mg tablet 0.125 mg PO TID AR N dyspepsia #90 03/05/25 Unknown Rx tabs [...] (Auto) 78.3 H, Lymph % (Auto) 10.4 L,Phelps % (Auto) 8.2, Eos % (Auto) 2.5, [...] Clarity Clear, Urine pH 6.5, Ur Specific [place] 1.010, Urine Protein 15 H, Urine Glucose [...] is a 70-year-old female who presented to [facility] ED on 04/19/2025 with worsening weakness. 1. Acute on chronic debility ? Admit under observation status to [facility]. PT/OT/case management consulted. Patient with chronic [...] 55 minutes. Charges/Coding Visit Charges Inpatient E&M: 77459 Init Hosp L2 04/19/25 1436 Cosigner Signature (if applicable): CC: Dr. Maximo Orosco DO; Marci Lopez DO~ Signed [facility]05-29-2025 Evaluation note* Diagnosis Onset Date Resolution Status [...] calorie malnutrition acute July 01, 2025 7:22pm [facility] Work Phone: [phone]) [phone] Evaluation note* Diagnosis Onset Date Resolution Status [...] in remission acute July 12, 2025 9:34am [facility] [employer] [facility] Work Phone: [phone]) [phone] Evaluation note* Diagnosis Onset Date Resolution Status [...] 2025 9:34am Abdominal pain acute June 12:48pm [facility] Work Phone: [phone]) [phone] Evaluation note* Diagnosis Onset Date Resolution Status [...] of biventricular implantable cardioverter-defibrillator acute 2024 1:47pm [facility] Work Phone: [phone]) 223-815105-29-2025 Evaluation note* Diagnosis Onset Date Resolution Status [...] Nocturia acute July 2:41pm Overactive bladder acute Septem gabbie 2024 2:41pm Urge incontinence acute Septemb er 2024 2:41pm Chronic constipation chronic Sept ember 2024 2:41pm Urinary tract infection inactive S eptember 2024 2:41pm [facility] [employer] [facility] Work Phone: [phone]) [phone] Discharge summary Author Romeo Padron [facility] Note Date/Time April 19, 2025 11:[address] [facility] Medical Records Department [address] [place] [address] Emergency Department Summary 04/19/25 MR#: [id number] Acct: [id number] Name: MANSI CARO Rep #:[id number] : 1955 70 From: Romeo Padron DO PCP: Marci Lopez DO Status:REG E R Location: ED ADDENDUM by Dr. Bossman Sanders DO on 04/19/25 at 1106 Patient care turned over to fl awaiting evaluation by geriatric social work professor for placement to half-way facility. Patient was evaluated by geriatric social work professor and it was recommended [...] infection she was brought in for evaluation [facility] Medical History Ischemic colitis History of [...] (patent foramen ovale) Cardiac resynchronization therapy defibrillator (ROTARY DRILL OPERATOR-D) in place Myocarditis Hyperlipidemia Hypertension Home Medications [...] 0.125 mg tablet 0.125 mg PO TID AR N dyspepsia #90 03/05/25 Unknown Rx tabs [...] to go home and is agreeable to shelter/rehab placement. As it is a weekday and morning hours the patient will be evaluated by physical therapy/Occupational Therapy in the ER and social work will be consulted as well. There is hopes that the patient will be able to be sent directly from the ER to a shelter/rehab center. The patient and family were informed [...] 78.3 H Lymph % (Auto) 10.4 L Phelps % (Auto) 8.2 Eos % (Auto) 2.5 [...] Clarity Clear Urine pH 6.5 Ur Specific [place] 1.010 Urine Protein 15 H Urine Glucose (UA) 100 H Urine Ketones Negative Urine Occult Blood Negative Urine Nitrite Negative Urine Bilirubin Negative Urine Urobilinogen Normal Ur Leukocyte Esterase Negative Urine RBC 0 SEEN Urine WBC 0 SEEN Ur Squamous Epith Cells 0 SEEN Urine Bacteria 0 SEEN Urine Mucus 0 SEEN Management Discussion w/another healthcare provider: Hospitalist and paste worker/Case management Discharge Plan Triage Chief Complaint: [...] DO [Primary Care Provider] - Print Language: Bhutanese What to do if you have Problems For any increased pain, shortness of breath, bleeding, nausea or vomiting, chestpain, or any unexpected problems, contact your Primary Care Provider. Call [facility] ([phone]) or report to the closest Emergency Room. Call 911 if necessary. 04/19/25 0633 <Electronically signed by Romeo Padron DO> Cosigner Signature (if applicable): CC: Marci Lopez DO ~ Signed [facility] Work Phone: [phone]) [phone] Discharge summary [facility] Medical Records Department [address] [place] [address] Emergency Department Summary 04/19/25 MR#: [id number] Acct: [id number] Name: MANSI CARO Rep #:[id number] : 1955 70 From: Romeo Padron DO PCP: Marci Lopez DO Status:REG E R Location: ED ADDENDUM by Dr. Bossman Sanders DO on 04/19/25 at 1106 Patient care turned over to fl awaiting evaluation by geriatric social work professor for placement to half-way facility. Patient was evaluated by geriatric social work professor and it was recommended [...] infection she was brought in for evaluation [facility] Medical History Ischemic colitis History of [...] (patent foramen ovale) Cardiac resynchronization therapy defibrillator (ROTARY DRILL OPERATOR-D) in place Myocarditis Hyperlipidemia Hypertension Home Medications [...] 0.125 mg tablet 0.125 mg PO TID AR N dyspepsia #90 03/05/25 Unknown Rx tabs [...] to go home and is agreeable to shelter/rehab placement. As it is a weekday and morning hours the patient will be evaluated by physical therapy/Occupational Therapy in the ER and social work will be consulted as well. There is hopes that the patient will be able to be sent directly from the ER to a shelter/rehab center. The patient and family were informed [...] 78.3 H Lymph % (Auto) 10.4 L Phelps % (Auto) 8.2 Eos % (Auto) 2.5 [...] Clarity Clear Urine pH 6.5 Ur Specific [place] 1.010 Urine Protein 15 H Urine Glucose (UA) 100 H Urine Ketones Negative Urine Occult Blood Negative Urine Nitrite Negative Urine Bilirubin Negative Urine Urobilinogen Normal Ur Leukocyte Esterase Negative Urine RBC 0 SEEN Urine WBC 0 SEEN Ur Squamous Epith Cells 0 SEEN Urine Bacteria 0 SEEN Urine Mucus 0 SEEN Management Discussion w/another healthcare provider: Hospitalist and paste worker/Case management Discharge Plan Triage Chief Complaint: [...] DO [Primary Care Provider] - Print Language: Bhutanese What to do if you have Problems For any increased pain, shortness of breath, bleeding, nausea or vomiting, chestpain, or any unexpected problems, contact your Primary Care Provider. Call [facility] ([phone]) or report tothe closest Emergency Room. Call 911 if necessary. 04/19/25632 Cosigner Signature (if applicable): CC: Marci Lopez DO ~ Signed [facility]05-14-2025 History of Present illness Narrative* Rubina Valdovinos [...] that CIED system is MR conditional: Yes, dVisit Remote programming PATIENT PRESENTS WITH AN IMPLANTABLE OR ATTACHED TITLE COORDINATOR: No RADIOLOGY DEPARTMENT: MR; Exam(s) Completed: Head: Routine Brain. Lavender Administered: No PERIPHERAL IV DATA: Not applicable SIGNED BY: DIONNA Shipman April 04, 2025 12:27 PM documented in [facility]05-14-2025 NoteHNO ID: [id number] Author: RUBINA VALDOVINOS CT Service: Radiology Author [...] that CIED system is MR conditional: Yes, dVisit Remote programming PATIENT PRESENTS WITH AN IMPLANTABLE OR ATTACHED TITLE COORDINATOR: No RADIOLOGY DEPARTMENT: MR; Exam(s) Completed: Head: Routine Brain. Lavender Administered: No PERIPHERAL IV DATA: Not applicable SIGNED BY: DIONNA Shipman April 04, 2025 12:27 [facility] [id number] Nurse Note* Janine Tompkins RN - 04/04/2025 [...] REVIEWED: YES PROCEDURE: MRI - Conditional Pacemaker [employer] [place] [employer] Paint Crew Supervisor Device - Settings: DOO 90 bpm Physiologic monitoring per standard operating procedure. See vital sign flowsheet. PERIPHERAL IV ACCESS: Not applicable PATIENT TOLERATED PROCEDURE: Without incident. PATIENT DISCHARGED TO: Home/Self Care SIGNED BY: TANIA Barnett Patient arrived here today for an MRI. Patients [employer] [place] [employer] Pacemaker was placed in MRI safe mode by [employer] and [employer] & device. Vitals remained stable throughout - see flowsheet. MRI was completed and then pacemaker was taken out of MRI safe mode and tolerated well. Patient was discharged home with family. [facility]05-14-[facility] Nurse Note* Janine Tompkins RN - [...] REVIEWED: YES PROCEDURE: MRI - Conditional Pacemaker [employer] [place] [employer] Paint Crew Supervisor Device - Settings: DOO 90 bpm Physiologic monitoring per standard operating procedure. See vital sign flowsheet. PERIPHERAL IV ACCESS: Not applicable PATIENT TOLERATED PROCEDURE: Without incident. PATIENT DISCHARGED TO: Home/Self Care SIGNED BY: TANIA Barnett Patient arrived here today for an MRI. Patients [employer] [place] [employer] Pacemaker was placed in MRI safe mode by maintenance technician 3rd shift & device. Vitals remained stable throughout - see flowsheet. MRI was completed and then pacemaker was taken out of MRI safe mode and tolerated well. Patient was discharged home with family. documented in this encounterMedina [facility] History of Present illness Narrative* Jelly [...] PATIENT PRESENTS WITH AN IMPLANTABLE OR ATTACHED TITLE COORDINATOR: No RADIOLOGY DEPARTMENT: General X-ray: Exam(s) Completed: Chest X-Ray PERIPHERAL IV DATA: Not applicable SIGNED BY: Ranye Khoury April 02, 2025 9:34 AM documented in this encounterMedina Hospital05-12-2025 NoteHNO ID: [id number] Author: JELLY SANCHEZ Tech Service: ? Author Type: Window Cleaner Type: Progress Notes Filed: 04/02/2025 09:34 Note [...] PATIENT PRESENTS WITH AN IMPLANTABLE OR ATTACHED TITLE COORDINATOR: No RADIOLOGY DEPARTMENT: General X-ray: Exam(s) Completed: Chest X-Ray PERIPHERAL IV DATA: Not applicable SIGNED BY: Rayne Khoury April 02, 2025 9:34 AMLutheran [id number] Telephone encounter Note* Telephone Encounter - Soumya Moss RN - 03/28/2025 9:45 AM EDT Voicemail received March 27, 2025 1458 Spouse calling to check on status of Austedo. Call to pharmacy, Austedo has been authorized. They will be reaching out to patient to discuss co-pay. [facility]05-07-2025 Miscellaneous Notes* Telephone Encounter - Soumya Moss RN - 03/28/2025 9:45 AM EDT Voicemail received March 27, 2025 1458 Spouse calling to check on status of Austedo. Call to pharmacy, Austedo has been authorized. They will be reaching out to patient to discuss co-pay. documented in this encounterMedina Hospital04-19-2025 Radiology Diagnostic study note [facility] Imaging Services [address] [place] [address] HIP, UNI W/ Pelvis 2-3 Views MR#: [id number] Acct: [id number] Name: MANSI CARO Rep #: [id number] : [id number] F 70 From: Vickie Coles MD PCP: Marci Lopez DO Status: REG E R Study:HIP, UNI W/ Pelvis 2-3 Views Date of Ex am: 03/10/25 Exam# [id number] Ordering Dr: Mellisa Taylor PROCEDURE: HIP, UNI [...] IMPRESSION: Negative left hip radiographs. Reading Location: [id number] CC: Marci Lopez DO; AMRIK Harrison ~ Public Information Officer: Signed [facility]04-19-2025 Telephone encounter Note* Telephone Encounter - Linda [...] Assessment Questions . Protocols used: Falls and Lywcrpx-VXVQU-CJ [id number] Miscellaneous Notes* Telephone Encounter - Linda Valdez [...] Assessment Questions . Protocols used: Falls and Cimbisb-SZATD-WL documented in this encounterSLutheran [id number] Telephone encounter Note* Telephone Encounter - Dipti Stewart - 03/09/2025 12:14 PM EDT Spouse called inquiring status of RX for valbenazine (INGREZZA) 40 mg capsule. Informed Spouse that order was signed on 02/27/2025. Order has been faxed to [facility]: [phone]. Spouse provided phone number for pharmacy ([phone]) to follow up on this request. Dipti Stewart [facility]04-18-2025 Miscellaneous Notes* Telephone Encounter - Dipti Stewart - 03/09/2025 12:14 PM EDT Spouse called inquiring status of RX for valbenazine (INGREZZA) 40 mg capsule. Informed Spouse that order was signed on 02/27/2025. Order has been faxed to [facility]: [phone]. Spouse provided phone number for pharmacy ([phone]) to follow up on this request. Dipti Stewart documented in this encounterMedina Hospital04-10-2025 Telephone encounter Note * Telephone Encounter - Kalen Casey RT(Bairon) - 03/01/2025 3:27 PM EDT Kyra, You have ordered an MRI on this patient with an implanted cardiac device. To clear the patient, as per our policy, patient will need a 2 view CXR prior to MRI scan. CXR is used to confirm there are no broken or abandoned leads. Thank you, Kalen Hall(Bairon)(),[facility] MRI Safety Team [facility]04-10-2025 Miscellaneous Notes* Telephone Encounter - Kalen Casey RT(Bairon) - 03/01/2025 3:27 PM EDT Kyra, You have ordered an MRI on this patient with an implanted cardiac device. To clear the patient, as per our policy, patient will need a 2 view CXR prior to MRI scan. CXR is used to confirm there are no broken or abandoned leads. Thank you, Kalen Russell)(MR),[facility] MRI Safety Team documented in this encounterMedina Hospital04-09-2025 NoteHNO ID: [id number] Author: LEYLA MURPHY MD Service: ? Author Type: Physician Type: Progress Notes Filed: 02/28/2025 09:12 Note Text: [facility] - FOLLOW UP EVALUATION The patient consented to the use of [employer] software for draft documentation of the visit consistent with [facility]?s Notice of Privacy Practices. Jesus Manuel Freitas DO, DO [address] [facility] [address] Dear Jesus Manuel Freitas DO, DO: I [...] that cannabis use during a visit to [place] temporarily alleviated her symptoms. She reports difficulty [...] 02/27/2025 in N (more content not included)... [facility]04-09-2025 History of Present illness Narrative* Leyla Murphy MD - 02/28/2025 8:58 AM EDT [facility] - FOLLOW UP EVALUATION The patient consented to the use of ambient AI software for draft documentation of the visit consistent with [facility] s Notice of Privacy Practices. Jesus Manuel Freitas DO, DO [address] [facility] [address] Dear Jesus Manuel Freitas DO, DO: I [...] that cannabis use during a visit to [place] temporarily alleviated her symptoms. She reports difficulty [...] Row Office Visit from 02/27/2025 in Neurology [facility] from 10/20/2023 in Neurological [facility] T Score 26.7 32.4 [...] 2+ 2+ Achilles 1+ 1+ Coordination Right: Rnhyww-rr-nhok normal. Rapid alternating movement normal. Oqyd-um-uivv normal.Left: Fuicxi-jc-sxuu normal. Rapid alternating movement normal. Rbre-zv-oxgs normal. Gait Casual gait: Wide stance. Reduced [...] Ingrezza 40 mg daily; prescription sent to [facility] for processing. - Patient and family educated on potential side effects and the process of obtaining medication through a specialty pharmacy. The following are the current problems noted and addressed during this visit: Essential tremor (primary encounter diagnosis) Dyskinesia, tardive Plan 02/27/2025 Visit: - Start taking Ingrezza 40 mg daily for mouth movements; prescription sent to [facility]. Once this is controlled [...] or around: 05/29/25 Level of service : 74942 (40-68 min). Time spent 67 min on the day of service, which included preparing to see the patient, shmh-zh-sxlg patient care, completing clinical documentation, obtaining and/or [...] Sincerely, Leyla Murphy MD documented in this encounterMedina Hospital04-09-2025 History of Present illness Narrative* Michel Ibrahim - 02/28/2025 7:32 AM EDT [facility] received prescription(s) for Ingrezza from Leyla Murphy's office. Benefits investigation was conducted, indicating that a prior authorization is required by patient's insurance plan with [employer]. Encounter will be updated once prior authorization has been submitted by [facility]. Michel Ibrahim CPhT Neurology, Cardiology & Infectious Disease [facility] documented in this encounterMedina Hospital04-09-2025 NoteHNO ID: [id number] Author: WESLEY HAYES [facility] Service: ? Author Type: Pharmacist Type: Progress Notes Filed: 03/29/2025 10:22 Note Text: [facility] received prescription(s) for Autedo from Leyla Murphy's office. Benefits investigation was conducted, indicating that a prior authorization is required by patient's insurance plan with [employer]. PA was approved with details listed below: Plan Name: [employer] Medicare Approval Dates: 03/13/25 - 11/21/25 Pt's copay is $196. Shipment has been arranged, and pt will receive medication(s) on 03/30. Pt has been instructed to follow-up with clinic to confirm start date. A full drug interaction report was conducted, and risk of additive CARVER HAND depression with Percocet was discussed with spouse. [...] allergic reaction and is willing to rechallenge [facility] RN Problem List Noted Noted By Resolved Resolved By Spastic hemiparesis (HCC) 05/13/2023 Ghazala Gusman MD No Parkinsonism (HCC) 06/25/2022 Sherif Ramirez MD No Cholelithiasis 12/26/2014 Jasper Jackson MD No Peripheral vertigo, unspecified 01/14/2010 Saritha MclainRadha No Vertigo of central origin 01/14/2010 Radha Ogden No Acute, but ill-defined, cerebrovascular disease 08/14/2009 Florina Alfonso (Rn)(Hist), RN No Personal history of colonic polyps 02/21/2015 Guy Mcgarry MD 02/21/2015 Window Cleaner Assessment Patient confirmed: Yes Med/dose confirmed: Yes Supplies needed: Welcome packet Copay amount: 196 Copay form of payment: Credit card on file Payment confirmed: Yes Delivery method: FedEx Signature required: Waived on patient request Delivery address: [address] [place] [address] Delivery date: 03/30/25 Questions or concerns for the pharmacist?: Yes Patient questions/concerns: Medication cost, Medication dose, Medication route, Medication storage, Side effects, Delivery Did you have any side effects believed to be related to this medication, that resulted in hospitalization?: No [facility] CLINICAL ASSESSMENT - NEUROLOGY V7: Assessment to use: Initial Vaccination status assessment at initiation as andra (more content not included)...[facility]04-09-2025 NoteHNO ID: [id number] Author: ?, ?, ? Service: ? Author Type: ? Type: Progress Notes Filed: 03/13/2025 08:39 Note Text: [facility] received prescription(s) for Autedo from Leyla Murphy's office. Benefits investigation was conducted, indicating that a prior authorization is required by patient's insurance plan with [employer]. Note will be updated once prior authorization has been submitted. Jose Taveras CPhT (Dee) [facility] Neurology/Cardiology/Infections Disease [facility] P: F[facility] NoteHNO ID: [id number] Author: ?, ?, ? Service: ? Author Type: ? Type: Progress Notes Filed: 03/16/2025 15:10 Note Text: [facility] received prescription(s) for Austedo from Dr. Murphy's office. Benefits investigation was conducted, indicating that a prior authorization is required. PA was approved with details listed below. Plan Name: [employer] Medicare Approval Dates: 03/13/25 - 11/21/25 Prescriptions will now be processed through [facility] for determination of next steps. Estefany Anguiano CPhT [facility], Neurology, Cardiology, AND Infectious Disease P: [phone] F: [phone]04-09-2025 NoteHNO ID: [id number] Author: ?, ?, ? Service: ? Author Type: ? Type: Progress Notes Filed: 03/07/2025 10:28 Note Text: PA was initiated and pending review. Plan Name: [employer] Medicare Plan Agent/Rios: [id number] Case: [id number] Timeline: Linda Ibrahim CPhT Neurology, Cardiology AND Infectious Disease [facility]25 NoteHNO ID: [id number] Author: ?, ?, ? Service: ? Author Type: ? Type: Progress Notes Filed: 02/28/2025 07:34 Note Text: [facility] received prescription(s) for Ingrezza from Leyla Murphy's office. Benefits investigation was conducted, indicating that a prior authorization is required by patient's insurance plan with [employer]. Encounter will be updated once prior authorization has been submitted by [facility]. Michel Ibrahim CPhT Neurology, Cardiology AND Infectious Disease [facility]04-09-2025 NoteHNO ID: [id number] Author: WESLEY HAYES jose Service: ? Author Type: Pharmacist Type: Progress Notes Filed: 03/09/2025 16:31 Note Text: [facility] received prescription(s) for Ingrezza from Leyla Murphy's office. Benefits investigation was conducted, indicating that a prior authorization is required by patient's insurance plan with [employer]. PA was denied with details listed below. Plan Name: [employer] Medicare Plan Agent/Rios: [id number] Case: [id number] Phone/ / [phone] Case: Denial reason: Full denial letter has been scanned into patients chart. [facility] will review and assess if appeal is appropriate. Note will be updated accordingly. Wesley Hayes, [facility]04-08-2025 Telephone encounter Note * Telephone Encounter - Dipti Stewart - 02/27/2025 4:54 PM EDT Patient's spouse reports that Patient has a ROTARY DRILL OPERATOR-D implant (Cardiac Resynchronization Therapy with Defibrillator). Per scheduling protocol, staff message forwarded to Imaging Implants prentiss to contact Patient for appointment coordination/scheduling. Patient/Spouse will be contacted within 4 business days. Dipti Stewart [facility]04-08-2025 Miscellaneous Notes* Telephone Encounter - Dipti Stewart - 02/27/2025 4:54 PM EDT Patient's spouse reports that Patient has a ROTARY DRILL OPERATOR-D implant (Cardiac Resynchronization Therapy with Defibrillator). Per scheduling protocol, staff message forwarded to Imaging Implants prentiss to contact Patient for appointment coordination/scheduling. Patient/Spouse will be contacted within 4 business days. Dipti Stewart documented in this encounterMedina Hospital04-08-2025 Instructions* Patient Instructions* Leyla Murphy MD - 02/27/2025 4:44 PM EDT It was a pleasure to see you today. We addressed the following diagnoses: Essential tremor (primary encounter diagnosis) Dyskinesia, tardive My recommendations are as follows: - Start taking Ingrezza 40 mg daily for mouth movements; prescription sent to [facility]. Once this is controlled [...] or you can send a message through Wheeldo. You can also now schedule and select appointments through Wheel[employer]. Leyla Murphy MD documented in this encounterMedina Hospital03-25-2025 Evaluation note* Diagnosis Onset Date Resolution [...] artery acute May 29, 2025 3 :08pm [facility] [employer] Work Phone: 1(536) 442-975203-25-2025 Evaluation note* Diagnosis Onset Date Resolution Status [...] Abdominal pain acute May 30, 2025 1:59pm [facility] Work Phone: 1(555) 404-268403-25-2025 Evaluation note* Diagnosis Onset Date Resolution Status [...] 2025 1:59pm Ischemic colitis acute May 1:59pm [facility] Work Phone: 1(218) 482-114903-25-2025 Evaluation note* Diagnosis Onset Date Resolution Status [...] 02 1:36pm Pneumonia inactive June 02 1:36pm [facility] Work Phone: 1(442) 200-476403-09-2025 Telephone encounter Note* Telephone Encounter - Sari Parra RN - 01/28/2025 2:35 PM EDT S: Patient's spoke with [facility] nurse regarding medication concern B: Onset [...] a day was filled and picked up. [facility] RN relayed the message back to the . Patient's husbandunderstands care advice. No further needs at this time. Patient's instructed to call back with new or worsening symptoms. Reason for Disposition [1] Caller has NON-URGENT medicine question about med that PCP prescribed AND [2] triager unable toanswer question Protocols used: Medication Question Nnij-LKDMD-QV [facility]03-09-2025 Miscellaneous Notes* Telephone Encounter - Sari Parra RN - 01/28/2025 2:35 PM EDT S: Patient's spoke with [facility] nurse regarding medication concern B: Onset [...] unable toanswer question Protocols used: Medication Question Snei-VBGVX-CG documented in this [facility]03-04-2025 Evaluation note* Diagnosis Onset Date Resolution Status [...] Chronic anemia chronic April 25, 2025 6:41am [facility] Work Phone: 1(493) 354-653102-28-2025 Telephone encounter Note* Telephone Encounter - Dipti [...] has been notified of appt change via Wheeldo message. Dipti Stewart [facility]02-28-2025 Miscellaneous Notes* Telephone Encounter - Dipti [...] has been notified of appt change via Wheeldo message. Dipti Stewart documented in this encounterMedina Hospital02-28-2025 History of Present illness Narrative* Mellisa [...] PATIENT PRESENTS WITH AN IMPLANTABLE OR ATTACHED TITLE COORDINATOR: No RADIOLOGY DEPARTMENT: CT; Exam(s) Completed: Chest PERIPHERAL IV DATA: Not applicable SIGNED BY: TECHNOLOGIST Bhavya January 19, 2025 10:06 AM documented in this encounterMedina Hospital02-28-2025 NoteHNO ID: [id number] Author: MELLISA COATS TECHNOLOGIST Service: ? Author [...] PATIENT PRESENTS WITH AN IMPLANTABLE OR ATTACHED TITLE COORDINATOR: No RADIOLOGY DEPARTMENT: CT; Exam(s) Completed: Chest PERIPHERAL IV DATA: Not applicable SIGNED BY: TECHNOLOGIST Bhavya January 19, 2025 10:06 [facility]* Diagnosis Onset Date Resolution [...] Chronic constipation chronic Nirmal h 2024 8:26am [facility] Work Phone: 1(158) 959-968402-27-2025 Evaluation note* Diagnosis Onset Date Resolution Status [...] Generalized weakness acute April 19, 2025 11:26am [facility] Work Phone: 1(971) 552-239002-27-2025 Evaluation note* Diagnosis Onset Date Resolution Status [...] Chronic anemia chronic April 25, 2025 6:41am [facility] Work Phone: 1(961) 702-189301-07-2025 Evaluation note* Diagnosis Onset Date Resolution Status [...] Chronic constipation chronic Nirmal h 2024 8:26am [facility] Work Phone: 1(724) 477-775501-03-2025 Telephone encounter Note* Telephone Encounter - Becky Diaz - 11/24/2024 12:43 PM EST Name of caller: Song Contact phone number: [phone] Relationship to Patient: spouse/SO Provider: John Practice: [facility] Chief Complaint/Reason for Call: Patient , Beatrice, is calling to follow up with Dr. Lopez after patient appointment with her Gasteoenterologist. He is requesting a call back to discuss what happened at her appointment regarding her colitis diagnosis. He can be reached at [phone]. Best time of day caller can be reached: Any Patient advised that office/PCP has 24-48 business hours to return their call: N/A [id number] Miscellaneous Notes* Telephone Encounter - Becky Diaz - 11/24/2024 12:43 PM EST Name of caller: Song Contact phone number: [phone] Relationship to Patient: spouse/SO Provider: John Practice: [facility] Chief Complaint/Reason for Call: Patient , Beatrice, is calling to follow up with Dr. Lopez after patient appointment with her Gasteoenterologist. He is requesting a call back to discuss what happened at her appointment regarding her colitis diagnosis. He can be reached at [phone]. Best time of day caller can be reached: Any Patient advised that office/PCP has 24-48 business hours to return their call: N/A documented in this [facility]01-02-2025 Evaluation note* Diagnosis Onset Date Resolution Status [...] Presence of biventricular implantable cardioverter-defibrillator acute Febru dl2024 1:19pm Anemia chronic January 23 1:02pm Abdominal pain acute January 9:03am Pelvic pain acute February 13, 2 025 9:03am Chronic constipation chronic Nirmal h 2024 9:03am Abdominal pain acute January 8:26am Blood in stool acute January 8:26am Anemia chronic February 14 8:26am Chronic constipation chronic Nirmal h 2024 8:26am [facility] Work Phone: 1(919) 436-665912-26-2024 Telephone encounter Note* Telephone Encounter - Karis Bolden - 11/16/2024 10:17 AM EST Name of caller: Song Contact phone number: [phone] Relationship to Patient: spouse/SO Provider: Dr Marci Lopez Practice: [facility] Chief Complaint/Reason for Call: Song called to let doctor know appointment is set for 12/19/24 with vascular surgeon, and is not sure if that's soon enough. Please advise Best time of day caller can be reached: PM [id number] Miscellaneous Notes* Telephone Encounter - Karis Bolden - 11/16/2024 10:17 AM EST Name of caller: Song Contact phone number: [phone] Relationship to Patient: spouse/SO Provider: Dr Marci Lopez Practice: [facility] Chief Complaint/Reason for Call: Song called to let doctor know appointment is set for 12/19/24 with vascular surgeon, and is not sure if that's soon enough. Please advise Best time of day caller can be reached: PM documented in this [facility]12-24-2024 Telephone encounter Note* Telephone Encounter - Ghazala Gusman MD - 11/14/2024 4:08 PM EST Needs to come back in to reassess. In the meantime- can increase from 5mg qid to 10mg tid- messaged patient. [facility]12-24-2024 Miscellaneous Notes* Telephone Encounter - Ghazala [...] can prescribe to help with this? Pharmacy: [facility] in [place], [place] documented in this encounterMedina Hospital12-24-2024 Telephone encounter Note * Telephone Encounter [...] stable. F/u 12 months Janee Argueta RN [facility]12-23-2024 Telephone encounter Note* Telephone Encounter - [...] can prescribe to help with this? Pharmacy: [facility] in [place], [place] [facility]11-28-2024 Evaluation note* Diagnosis Chronic kidney disease, stage 3a (HCC)- Primary documented in this encounter [id number] Telephone encounter Note* Telephone Encounter - Antonio Lockhart - 10/06/2024 4:26 PM EST Name of caller: Song Contact phone number: [phone] Relationship to Patient: spouse/SO Provider: Dr. Lopez Practice: [facility] Chief Complaint/Reason for Call: Song wanted to ask Dr. Lopez to consider long covid for patient. States all the symptoms are there. Requesting a call back to discuss. Please advise. Best time of day caller can be reached: any Patient advised that office/PCP has 24-48 business hours to return their call: [phone] Miscellaneous Notes* Telephone Encounter - Antonio Lockhart - 10/06/2024 4:26 PM EST Name of caller: Song Contact phone number: [phone] Relationship to Patient: spouse/SO Provider: Dr. Lopez [...] to return their call: documented in this [facility]09-22-2024 NoteHNO ID: [id number] Author: ROXANNE BOO RT(R) Service: ? Author Type: Window Cleaner Type: Progress Notes Filed: 08/13/2024 11:59 Note [...] PATIENT PRESENTS WITH AN IMPLANTABLE OR ATTACHED TITLE COORDINATOR: NA CREATININE: Creatinine Date Value Ref Range [...] 1150 PATIENT DISCHARGED TO: Ambulatory patient, left [place] department area. A Diagnostic radioactive procedure has taken place, with no further precautions necessary other than routine body substance precautions. More information regarding radiation safety can be found using this link: [email or web address] 20Diagnostic%20Nuclear%20Medicine%20Procedures.pdf SIGNATURE: RT Daniel(R) PATIENT NAME: Mansi Caro DATE: August 13, 2024 TIME: 11:58 AM PAGER/CONTACT #:[facility]09-22-[facility] History of Present illness Narrative* Roxanne Boo, RT(R) - 08/13/2024 11:58 AM EDT RADIOLOGY [...] PATIENT PRESENTS WITH AN IMPLANTABLE OR ATTACHED TITLE COORDINATOR: NA CREATININE: Creatinine Date Value Ref Range [...] 1150 PATIENT DISCHARGED TO: Ambulatory patient, left [place] department area. A Diagnostic radioactive procedure has taken place, with no further precautions necessary other than routine body substance precautions. More information regarding radiation safety can be found usingthis link: [email or web address] 20Diagnostic%20Nuclear%20Medicine%20Procedures.pdf SIGNATURE: RT Daniel(R) PATIENT NAME: Mansi Caro DATE: August 13, 2024 TIME: 11:58 AM PAGER/CONTACT #: documented in this encounterMedina Hospital09-14-2024 Telephone encounter Note * Telephone Encounter [...] yesterday was 80, and oxygen level 99%, anhzbsizk53%. States her weight was up 2 pounds from yesterday and will give her lasix 20mg prn per order. Eating and drinking as normal. Bowel as normal with Miralax, urine as normal. States that hat braider states he thinks her left side pain [...] Protocols used: Information Only Call - No Bzrldf-DAEVV-DI [id number] Miscellaneous Notes* Telephone Encounter - Dulce Maria Gibson RN - 08/05/2024 11:18 AM EDT S: Patient spoke with [facility] nurse regarding weakness and fatigue B: [...] with Miralax, urine as normal. States that hat braider states he thinks her left side pain [...] Protocols used: Information Only Call - No Hcfubt-PPHXF-HO documented in this encounterSLutheran [id number] Telephone encounter Note* Telephone Encounter - Anna Zarco RN - 08/04/2024 12:52 PM EDT S: Patient , Song, spoke with [facility] nurse regarding no improvement on weakness or fatigue B: Onset of symptoms/concern 08/04/24 A: States they wanted to give status update on patient. Song states no improvement of weakness or fatigue after seeing canoe maker or vascular surgeon. States patient will be seeing hat braider today at 230. Declined triage as they [...] Protocols used: Information Only Call - No Bfahlb-FOCPZ-HT [id number] Miscellaneous Notes* Telephone Encounter - Anna Zarco RN - 08/04/2024 12:52 PM EDT S: Patient , Song, spoke with [facility] nurse regarding no improvement on weakness or fatigue B: Onset of symptoms/concern 08/04/24 A: States they wanted to give status update on patient. Song states no improvement of weakness or fatigue after seeing canoe maker or vascular surgeon. States patient will be seeing hat braider today at 230. Declined triage as they [...] Protocols used: Information Only Call - No Hrrtvp-ONOLJ-WQ documented in this [facility]08-30-2024 History of Present illness Narrative* Yi Caal [...] PATIENT PRESENTS WITH AN IMPLANTABLE OR ATTACHED TITLE COORDINATOR: N/A RADIOLOGY DEPARTMENT: CT; Exam(s) Completed: Chest PERIPHERAL IV DATA: Not applicable SIGNED BY: RT Martina(Bairon) July 21, 2024 11:07 AM documented in this encounterMedina [facility]08-30-2024 NoteHNO ID: [id number] Author: YI CAAL RT(R) Service: ? Author [...] PATIENT PRESENTS WITH AN IMPLANTABLE OR ATTACHED TITLE COORDINATOR: N/A RADIOLOGY DEPARTMENT: CT; Exam(s) Completed: Chest PERIPHERAL IV DATA: Not applicable SIGNED BY: RT Martina(Bairon) July 21, 2024 11:07 [facility]08-20-2024 Telephone encounter Note * Telephone Encounter - Deonna Sommer - 07/11/2024 3:20 PM EDT Name of caller: Ashtyn Contact phone number: [phone] Relationship to Patient: [facility] Provider: Dr. Lopez Practice: [facility] Chief Complaint/Reason for Call: Ashtyn from [facility] called in regards to a message they received from the office and they are not sure what this was in regards to. Ashtyn is requesting a call back and they can be reached at #[phone]. Please advise. Best time of day caller can be reached: Any Patient advised that office/PCP has 24-48 business hours to return their call: No [id number] Miscellaneous Notes* Telephone Encounter - Deonna Kemal - 07/11/2024 3:20 PM EDT Name of caller: Ashtyn Contact phone number: [phone] Relationship to Patient: [facility] Provider: Dr. Lopez Practice: [facility] Chief Complaint/Reason for Call: Ashtyn from [facility] called in regards to a message they received from the office and they are not sure what this was in regards to. Ashtyn is requesting a call back and they can be reached at #[phone]. Please advise. Best time of day caller can be reached: Any Patient advised that office/PCP has 24-48 business hours to return their call: No documented in this encounterSLutheran [id number] Telephone encounter Note* Telephone Encounter - Bill Deluca RN - 07/11/2024 12:14 PM EDT S: Patient's Song spoke with [facility] nurse regarding patient's xray, and referral B: Onset of symptoms/concern today A: Song wants to discuss the result of the patient's xray, and state he with the patient's chute man and was advised to see a canoe maker. R: Please call Song at his # [phone] to discuss these issues. Patient understands care advice. No further needs at this time. Patient instructed to call back with new or worsening symptoms. Reason for Disposition [1] Follow-up call from patient regarding patient's clinical status AND [2] information urgent Protocols used: PCP Call - No Hldkcb-RWCTY-ES [id number] Miscellaneous Notes* Telephone Encounter - Bill Deluca RN - 07/11/2024 12:14 PM EDT S: Patient's Song spoke with [facility] nurse regarding patient's xray, and referral B: Onset of symptoms/concern today A: Song wants to discuss the result of the patient's xray, and state he with the patient's chute man and was advised to see a canoe maker. R: Please call Song at his # [phone] to discuss these issues. Patient understands care advice. No further needs at this time. Patient instructed to call back with new or worsening symptoms. Reason for Disposition [1] Follow-up call from patient regarding patient's clinical status AND [2] information urgent Protocols used: PCP Call - No Szamdx-SXKHQ-QE documented in this encounterSLutheran [id number] Telephone encounter Note* Telephone Encounter - Jennifer Hema Woods - 06/28/2024 8:08 AM EDT Name of caller: Song Contact phone number: [phone] Relationship to Patient: Spouse Provider: Practice: Chief Complaint/Reason for Call: Patients Spouse called in to cancel appointment today at 10 am forLab work. Spouse stated he just got home with the Patient from the Emergency Room. Spouse stated the Patient had some labs done in the [place] [facility] and wanted to inform the doctor. Please advise. Best time of day caller can be reached: N/A Patient advised that office/PCP has 24-48 business hours to return their call: N/A [id number] Miscellaneous Notes* Telephone Encounter - Jennifer Garrido Peggy - 06/28/2024 8:08 AM EDT Name of caller: Song Contact phone number: [phone] Relationship to Patient: Spouse Provider: Practice: Chief Complaint/Reason for Call: Patients Spouse called in to cancel appointment today at 10 am forLab work. Spouse stated he just got home with the Patient from the Emergency Room. Spouse stated the Patient had some labs done in the [place] [facility] and wanted to inform the doctor. Please advise. Best time of day caller can be reached: N/A Patient advised that office/PCP has 24-48 business hours to return their call: N/A documented in this [facility]06-26-2024 History of Present illness Narrative* Ghazala Gusman [...] noted at rest but better with activity. ROTARY DRILL OPERATOR D placed on 05/12/22. Ongoing issues: Feeling [...] hypokalemia and dehydration with that hosptilzation at [facility] Recent cataract removal b/l No new [...] which included preparing to see the patient, reim-dx-jhmj patient care, completing clinical documentation, performing a medically appropriate examination, counseling and educating the patient/family/caregiver, and ordering medications, tests,or procedures. documented in this encounterMedina Hospital04-22-2024 Discharge summary Author Alonso Estuardo [facility] March 13, 2024 5:55pm Note Date/Time March 13, 2024 5:5 0pm [facility] Medical Records Department [address] [place] [address] Discharge Summary 03/13/24 1747 MR#: [id number] Acct: [id number] Name: MANSI CARO Rep #:[id number] : 1955 69 From: Alonso Marte MD PCP: Dr. Adrienne Byers DO Status:ADM IN Location: [address] Date of Admission: 02/29/24 Primary Care [...] Depression - Escitalopram 10mg daily, stable chronic assisted use, GDR not recommended. * Diabetes Mellitus [...] dischargehome with . Discharge home with 03/15/2024, [facility] PT/OT/ST/SN. Physical Exam Const alert General [...] pain Additional Instructions: Discharge home with 03/15/2024, [facility] PT/OT/ST/SN. Please Follow Up With: Shan [...] Instructions / Restrictions: Discharge home with 03/15/2024, [facility] PT/OT/ST/SN. Discharge Orders/Prescriptions Prescriptions: New acetaminophen [...] can be placed): Home Health Service 03/13/24 3975 <Electronically signed by Alonso Marte MD> Cosigner Signature (if applicable): CC: Dr. Adrienne Byers DO; Dr. Alonso Marte MD~ Signed [facility] Work Phone: 1(819) 477-746704-10-2024 Progress note Author Alonso Marte [facility] March 01, 2024 4:01pm Note Date/Time March 01, 2024 2:[address] [facility] Medical Records Department [address] [place] [address] Progress Note - Pharmacy 03/01/24 1452 MR#: [id number] Acct: [id number] Name: MANSI CARO Rep #:[id number] : 1955 69 From: Carlotta Singletary PCP: Dr. Adrienne Byers, DO Status:ADM IN Location: [place] [address] Documented by User: Carlotta Singletary 03/01/24 15:37 [...] 75 Mg Tablet PO 75 mg DAILY [facility] Administration Dicyclomine HCl 20 mg 02/29/24 16:45 03/01/24 11:27 Dicyclomine 10 Mg Capsule PO 20 mg TIDAC [facility] Administration Empagliflozin 10 mg 03/01/24 10:00 03/01/24 08:51 Empagliflozin 10 Mg Tablet PO 10 mg DAILY [facility] Administration Escitalopram Oxalate 10 mg 03/01/24 10:00 03/01/24 08:54 Escitalopram Oxalate 10 Mg Tablet PO 10 mg DAILY [facility] Administration Metformin HCl 500 mg 03/07/24 08:00 [facility]r) [facility] Metop[facility]ol Succinate 12.5 mg 03/01/24 10:00 03/01/24 08:52 Metoprolol(Xl)Succ 25 Mg Tablet PO 12.5 mg DAILY [facility] Administration Protocol Multivitamins 1 tablet 03/01/24 08:00 03/01/24 08:49 Multivitamins,Therapeutic Tablet [facility] Administration Nutritional Formula (Lactose Free) 120 ml 03/01/24 12:45 03/01/24 13:39 Glucerna Shake 120 Ml Liquid PO Not Given TIDCM [facility] Pantoprazole Sodium 40 mg 02/29/24 22:00 03/01/24 08:52 Pantoprazole Sodium 40 Mg Tablet PO 40 mg BID [facility] Administration Polyethylene Glycol 17 gm 03/01/24 10:00 03/01/24 08:48 Polyethylene Glycol 3350 17 Gm Packet PO 17 gm DAILY [facility] Administration Potassium Chloride 20 meq 03/01/24 08:00 03/01/24 09:08 Potassium Chloride Oral Tablet 20 Meq PO 20 meq BIDCM [facility] Administration Prochlorperazine Maleate 10 mg 03/01/24 13:07 03/01/24 13:38 Prochlorperazine 5 Mg Tablet PO 10 mg Q4H PRN PRN Administration NAUSEA/VOMITING Sacubitril/Valsartan 0.5 each 02/29/24 22:00 03/01/24 08:50 Sacubitril/Valsartan 24/26 Mg Tablet PO 0.5 each BID [facility] Administration Sodium Chloride 10 - 40 ml [...] QHS. Please continue to monitor LFTs (last 4/1/24), lipid panel (last 09/29/23) and muscle pain. [...] User: Dr. Alonso Marte MD 03/01/24 16:01 [facility] RX Drug Regimen Review Provider Comments Provider responsibility Provider Comments to Recommendations by Pharmacy: Agree 03/01/24 1537 <Electronically signed by Carlotta Singletary> Carlotta Singletary Cosigner Signature (if applicable): 03/01/24 1601 <Electronically signed by Alonso Marte MD> CC: ~ Signed [facility] Work Phone: 1(899) 909-186504-09-2024 History and physical note Author [facility] February 29, 2024 8:00pm Note Date/Time February 29, 2024 7:[address] [facility] Medical Records Department [address] [place] [address] History & Physical Exam 02/29/24 1934 MR#: [id number] Acct: [id number] Name: MANSI CARO Rep #:[id number] : 1955 69 From: Alonso Marte MD PCP: Dr. Adrienne Byers, Status:ADM IN Location: [place] [address] HPI - General General Date of Admission: 02/29/24 Date of Service: 02/29/24 Chief Complaint: Here for rehabilitation. HPI Narrative 02/21/2024 MANSI CARO, is a 69 Female who presents to [facility] ED with abdominal pain. Abdominal pain, [...] Morphine, Zofran, Unasyn given. 02/21/2024 Admit to [facility]. IV antibiotics, consult GI for colitis. [...] strengthening, prior to discharge home with . [facility] Medical History (Updated 02/29/24 @ 19:[address] Alonso Marte MD) Anxiety and depression AV node dysfunction Cardiac resynchronization therapy defibrillator (ROTARY DRILL OPERATOR-D) in place Cerebral palsy Congestive heart failure [...] qhs, Trazodone 50mg qhs prn, stable chronic assisted use, GDR not recommended. * Abdominal cramping - Dicyclomine 20mg tidac. * HFrEF - Metoprolol succinate 15mg daily, Entresto 24/26mg 1/2 tablet bid, Jardiance 10mg daily, Aldactone 12.5mg mwf. * Nutrition - Ensure 120ml 4x/day, MVI daily. * Depression - Escitalopram 10mg daily, stable chronic assisted use, GDR not recommended. * Diabetes Mellitus II - Metformin XR 500mg daily. * GERD - Pantoprazole 40mg bid. * Overactive bladder - Tolterodine 2mg daily. 02/29/241999 <Electronically signed by Alonso Marte MD> Cosigner Signature (if applicable): CC: Dr. Adrienne Byers DO; Dr. Alonso Marte MD~ Signed [facility] Work Phone: 1(673) 387-557004-09-2024 Progress note Author Yoandy Thakkar [facility] February 29, 2024 10:26am Note Date/Time February 29, 2024 10:2 6am [facility] Medical Records Department [address] [place] [address] Progress Note - Infect Disease 02/29/24 1025 MR#: [id number] Acct: [id number] Name: MANSI CARO Rep #:[id number] : 1955 69 From: Yoandy knight MD PCP: Dr. Adrienne Halko, DO Status:ADM IN Location: [facility] SG675-5 Physical Exam Narrative Feeling better, abd pain [...] Cosigner Signature (if applicable): CC: ~ Signed [facility] Work Phone: 1(376) 977-757904-09-2024 Discharge summary Author Ganesh Kiran [facility] February 29, 2024 11:33am Note Date/Time February 29, 2024 7:[address] [facility] Medical Records Department [address] [place] [address] Transfer to [facility] MR#: [id number] Acct: [id number] Name: MANSI CARO Rep #:[id number] : 1955 69 From: Ganesh Mera PCP: Dr. Adrienne Byers, DO Status:ADM IN Certification of patient admission REQUIRED AT TIME OF ADMISSION. I CERTIFY THAT POST-HOSPITAL ECF SERVICES ARE REQUIRED TO BE GIVEN ON AN IN-PATIENT BASIS BECAUSE OF THE ABOVE NAMED PATIENT'S NEED FOR PENITENTIARY CARE ON A CONTINUING BASIS FOR THE [...] to 6. * Patient was evaluated by chute man 02/27: Patient passing flatus but no bowel [...] required. DVT prophylaxis: SCDs. Discussed with the residential case manager. Patient's wanted to go to [...] Adrienne Byers DO [Primary Care Provider] - Friend,Shan, DO [Med Staff - Active Staff] - Within 1 Month Yoandy Thakkar MD [Med Staff - Active Staff] - Within 1 Month (As needed for C. difficile) Disposition Disposition (needs filled in before D/C Order can be placed): Long Term Facility 02/29/24 1133 <Electronically signed by Ganesh Kiran MD> Cosigner Signature (if applicable): CC: Dr. Ben Johnson DO; Dr. Adrienne Byers DO; Dr. Heike Horta MD; Dr.Robert Ariane MD ~ [facility] Work Phone: 1(276) 271-358804-08-2024 Progress note Author Shan Lockett [facility] February 28, 2024 5:29pm Note Date/Time February 28, 2024 5:30 pm [facility] Medical Records Department [address] [place] [address] Progress Note - GI 02/28/24 1727 MR#: [id number] Acct: [id number] Name: MANSI CARO Rep #:[id number] : 1955 69 From: Shan Lockett DO PCP: Dr. Adrienne Byers DO Status:ADM IN Location: [place] [address]1 Subjective Subjective Patient's diarrhea has subsided with [...] (Auto) 44.0 L, Lymph % (Auto) 44.4 H,Phelps % (Auto) 6.9, Eos % (Auto) 4.3, [...] that plan. Charges/Coding Visit Charges Inpatient E&M: 53813 Subs Hosp L3 02/28/24 1729 <Electronically signed by Shan Lockett DO> Cosigner Signature (if applicable): CC: ~ Signed [facility] Work Phone: 1(625) 819-548204-08-2024 Progress note Author Ganesh Kiran [facility] February 28, 2024 1:13pm Note Date/Time February 28, 2024 8:26 am [facility] Medical Records Department [address] [place] [address] Progress Note - Hospitalist 02/28/24 08 MR#: [id number] Acct: [id number] Name: MANSI CARO Rep #:[id number] : 1955 69 From: Ganesh Mera PCP: Dr. Adrienne Byers, DO Status:ADM IN Location: [place] [address]-1 Reason for Visit Reason for Visit: Diagnoses [...] (Auto) 44.0 L, Lymph % (Auto) 44.4 H,Phelps % (Auto) 6.9, Eos % (Auto) 4.3, [...] to 6. * Patient was evaluated by chute man 02/27: Patient passing flatus but no bowel [...] required. DVT prophylaxis: SCDs. Discussed with the residential case manager. Patient's wanted to go to TCU. Charges/Coding Visit Charges Inpatient E&M: 85149 Subs Hosp L2 02/28/24 1313 <Electronically signed by Ganesh Kiran MD> Cosigner Signature (if applicable): CC: ~ Signed [facility] Work Phone: 1(298) 148-191404-08-2024 Consult note Author Yoandy Thakkar [facility] February 28, 2024 1:02pm Note Date/Time February 28, 2024 1:[address] [facility] Medical Records Department [address] [place] [address] Consultation - Infectious Dx 02/28/24 1258 MR#: [id number] Acct: [id number] Name: MANSI CARO Rep #:[id number] : 1955 69 From: Yoandy knight MD PCP: Dr. Adrienne Byers, DO Status:ADM IN Location: [address] Assessment & Plan Assessment/Plan (1) Colitis: [...] performed and neg except as noted above. [facility] Medical History Anxiety and depression AV node dysfunction Cardiac resynchronization therapy defibrillator (ROTARY DRILL OPERATOR-D) in place Cerebral palsy Congestive heart failure [...] (Auto) 44.0 L, Lymph % (Auto) 44.4 H,Phelps % (Auto) 6.9, Eos % (Auto) 4.3, [...] Heike Horta MD; Dr.Robert Ariane MD~ Signed [facility] Work Phone: 1(385) 684-486204-08-2024 Consult note Author Bill Victor [facility] February 28, 2024 2:46am Note Date/Time February 28, 2024 2:46 am [facility] Medical Records Department [address] [place] [address] Pharmacokinetic/Renal -Consult 02/28/24 0245 MR#: [id number] Acct: [id number] Name: MANSI CARO Rep #:[id number] : 1955 69 From: Bill Charlton od PCP: Dr. Adrienne Byers DO Status:ADM IN Y Location: [place] [address] Consult Antibiotic Management Pharmacy has been consulted [...] Signature (if applicable): Date CC: ~ Signed [facility] Work Phone: 1(720) 979-992104-07-2024 Progress note Author Shan Friend [facility] February 27, 2024 2:30pm Note Date/Time February 27, 2024 2:[address] [facility] Medical Records Department [address] [place] [address] Progress Note - GI 02/27/24 1429 MR#: [id number] Acct: [id number] Name: MANSI CARO Rep #:[id number] : 1955 69 From: Shan Lockett DO PCP: Dr. Adrienne Byers DO Status:ADM IN Location: [place] [address]-1 Subjective Subjective Patient states that her abdominal [...] Neut % (Auto) 69.4, Lymph % (Auto) 22.4,Phelps % (Auto) 6.2, Eos % (Auto) 1.5, [...] medication regimen. Charges/Coding Visit Charges Inpatient E&M: 49911 Subs Hosp L3 02/27/24 1430 <Electronically signed by Shan Lockett DO> Cosigner Signature (if applicable): CC: ~ Signed [facility] Work Phone: 1(886) 744-686204-07-2024 Progress note Author Shan Lockett [facility] February 27, 2024 2:21pm Note Date/Time February 26, 2024 3:33 pm [facility] Medical Records Department [address] [place] [address] Progress Note - GI 02/26/24 1533 MR#: [id number] Acct: [id number] Name: MANSI CARO Rep #:[id number] : 1955 69 From: Shan Friend DO PCP: Dr. Adrienne Byers, DO Status:ADM IN Location: [place] IV364-9 Subjective Subjective She underwent CT scan abdomen [...] Clarity Clear, Urine pH 5.0, Ur Specific [place] 1.020, Urine Protein 15 H, Urine Glucose [...] 77.6 H, Lymph % (Auto) 15.8 L, Phelps % (Auto) 5.7, Eos % (Auto) 0.2, [...] Cosigner Signature (if applicable): CC: ~ Signed [facility] Work Phone: 1(762) 586-796404-07-2024 Progress note Author Heike Horta [facility] February 27, 2024 11:22am Note Date/Time February 27, 2024 8:[address] [facility] Medical Records Department [address] [place] [address] Progress Note 02/27/24 0839 MR#: [id number] Acct: [id number] Name: MANSI CARO Rep #:[id number] : 1955 69 From: Heike Horta MD PCP: Dr. Adrienne Byers, Status:ADM IN Location: [facility] FK084-7 Subjective Subjective Patient seen and examined. She [...] Neut % (Auto) 69.4, Lymph % (Auto) 22.4,Phelps % (Auto) 6.2, Eos % (Auto) 1.5, [...] awaiting placement Charges/Coding Visit Charges Inpatient E&M: 98408 Subs Hosp L2 02/27/24 1122 <Electronically signed by Heike Horta MD> Heike Horta MD Cosigner Signature (if applicable): CC: ~ Signed [facility] Work Phone: 1(910) 985-131204-06-2024 Progress note Author [facility] February 26, 2024 2:42pm Note Date/Time February 26, 2024 9:[address] [facility] Medical Records Department [address] [place] [address] Progress Note 02/26/24 0912 MR#: [id number] Acct: [id number] Name: MANSI CARO Rep #:[id number] : 1955 69 From: Heike Horta MD PCP: Dr. Adrienne Byers, DO Status:ADM IN Location: [facility] AJ859-3 Subjective Subjective Patient seen and examined. was [...] Clarity Clear, Urine pH 5.0, Ur Specific [place] 1.020, Urine Protein 15 H, Urine Glucose [...] 77.6 H, Lymph % (Auto) 15.8 L, Phelps % (Auto) 5.7, Eos % (Auto) 0.2, [...] awaiting placement Charges/Coding Visit Charges Inpatient E&M: 63389 Subs Hosp L3 02/26/24 1442 <Electronically signed by Heike Horta MD> Heike Horta MD Cosigner Signature (if applicable): CC: ~ Signed [facility] Work Phone: 1(326) 382-710704-06-2024 Consult note Author Yoandy Marcial [facility] February 26, 2024 11:30am Note Date/Time February 26, 2024 11:2 6am [facility] Medical Records Department [address] [place] [address] Pharmacokinetic/Renal -Consult 02/26/24 1126 MR#: [id number] Acct: [id number] Name: MANSI CARO Rep #:[id number] : 1955 69 From: Yoandy Marcial PCP: Dr. Adrienne Byers, DO Status:ADM IN Location: [place] [address] Consult Antibiotic Management Pharmacy has been consulted [...] Signature (if applicable): Date CC: ~ Signed [facility] Work Phone: 1(113) 680-555304-05-2024 Progress note Author Shan Lockett [facility] February 25, 2024 5:51pm Note Date/Time February 25, 2024 5:51 pm [facility] Medical Records Department [address] [place] [address] Progress Note - GI 02/25/24 3809 MR#: [id number] Acct: [id number] Name: MANSI CARO Rep #:[id number] : 1955 69 From: Shan Lockett DO PCP: Dr. Adrienne Byers, DO Status:ADM IN Location: [place]3 XU138-8 Subjective Subjective Patient's appetite is poor and [...] (Auto) 82.7 H, Lymph % (Auto) 10.3 L,Phelps % (Auto) 6.3, Eos % (Auto) 0.3, [...] poor appetite. Charges/Coding Visit Charges Inpatient E&M: 26821 Subs Hosp 02/25/24 1751 <Electronically signed by Shan Friend DO> Cosigner Signature (if applicable): CC: ~ Signed [facility] Work Phone: 1(305) 880-577004-05-2024 Progress note Author Heike Horta [facility] February 25, 2024 4:51pm Note Date/Time February 25, 2024 10:[address] [facility] Medical Records Department [address] [place] [address] Progress Note 02/25/24 1040 MR#: [id number] Acct: [id number] Name: MANSI CARO Rep #:[id number] : 1955 69 From: Heike Horta MD PCP: Dr. Adrienne Byers, Status:ADM [facility] Subject[facility] Subjective Patient seen and examined. was [...] (Auto) 82.7 H, Lymph % (Auto) 10.3 L,Phelps % (Auto) 6.3, Eos % (Auto) 0.3, [...] awaiting placement Charges/Coding Visit Charges Inpatient E&M: 40766 Subs Hosp L3 02/25/24 9131 <Electronically signed by Heike Horta MD> Heike [...] Signature (if applicable): Date cc: ~* Signed [facility] Work Phone: 1(609) 298-580204-04-2024 Progress note Author Shan Friend [facility] February 24, 2024 5:08pm Note Date/Time February 24, 2024 5:07 pm [facility] Medical Records Department [address] [place] [address] Progress Note - GI 02/24/24 1705 MR#: [id number] Acct: [id number] Name: MANSI CARO Rep #:[id number] : 1955 69 From: Shan Lockett DO PCP: Dr. Adrienne Byers, DO Status:ADM IN Location: [facility] FO287-7 Subjective Subjective Patient had 1 bowel movement. [...] Neut % (Auto) 54.1, Lymph % (Auto) 37.2,Phelps % (Auto) 6.1, Eos % (Auto) 2.2, [...] Multi Select Codes Visit Charges Visit Charges: 01178 Subs Hosp L3 02/24/241707<Electronically signed by Shan Lockett DO> Cosigner Signature (if applicable): cc: ~* Signed [facility] Work Phone: 1(356) 718-379404-04-2024 Progress note Author [facility] February 24, 2024 3:42pm Note Date/Time February 24, 2024 9:[address] [facility] Medical Records Department [address] [place] [address] Progress Note 02/24/24931 MR#: [id number] Acct: [id number] Name: MANSI CARO Rep #:[id number] : 1955 69 From: Heike Horta MD PCP: Dr. Adrienne Byers, Status:ADM IN Location: [place] [address]-1 Subjective Subjective Patient seen and examined. She [...] Neut % (Auto) 54.1, Lymph % (Auto) 37.2,Phelps % (Auto) 6.1, Eos % (Auto) 2.2, [...] awaiting placement Charges/Coding Visit Charges Inpatient E&M: 64648 Subs Hosp L2 02/24/24 1542 <Electronically signed by Heike Horta MD> Heike Horta MD Cosigner Signature (if applicable): CC: ~ Signed [facility] Work Phone: 1(915) 904-716704-03-2024 Consult note Author Shan Lockett [facility] February 23, 2024 5:03pm Note Date/Time February 21, 2024 5:[address] [facility] Medical Records Department [address] [place] [address] Consultation - GI 02/21/24 1748 MR#: [id number] Acct: [id number] Name: MANSI CARO Rep #:[id number] : 1955 69 From: Shan Lockett DO PCP: Dr. Adrienne Byers, DO Status:ADM IN Location: [place] [address] HPI Consult Data Date of Consult: 02/21/24 [...] also progressed to worsening lower GI bleeding. [facility] Medical History Anxiety and depression AV node dysfunction Cardiac resynchronization therapy defibrillator (ROTARY DRILL OPERATOR-D) in place Cerebral palsy Congestive heart failure [...] (Auto) 88.4 H, Lymph % (Auto) 5.3L, Phelps % (Auto) 5.5, Eos % (Auto) 0.0, [...] Clarity Clear, Urine pH 5.0, Ur Specific [place] 1.015, Urine Protein 15 H, Urine Glucose [...] reflux disease. Charges/Coding Visit Charges Inpatient E&M: 87872 SNF Init L2 02/23/24 1703 <Electronically signed by Shan Lockett DO> Cosigner Signature (if applicable): CC: Dr. Ben Johnson, DO; Dr. Adrienne Byers, DO~ Signed [facility] Work Phone: 1(591) 779-893904-03-2024 Progress note Author Shan Lockett [facility] February 23, 2024 4:56pm Note Date/Time February 23, 2024 4:[address] [facility] Medical Records Department [address] [place] [address] Progress Note - GI 02/23/24 1655 MR#: [id number] Acct: [id number] Name: MANSI CARO Rep #:[id number] : 1955 69 From: Shan Lockett DO PCP: Dr. Adrienne Byers DO Status:ADM IN Location: [place] [address] Subjective Subjective She underwent colonoscopy yesterday for [...] Neut % (Auto) 58.7, Lymph % (Auto) 34.0,Phelps % (Auto) 5.7, Eos % (Auto) 1.2, [...] bowel regimen. Charges/Coding Visit Charges Inpatient E&M: 26271 Subs Hosp L3 02/23/24 6043 <Electronically signed by Shan Friend DO> Cosigner Signature (if applicable): CC: ~ Signed [facility] Work Phone: 1(157) 100-792704-03-2024 Progress note Author Heike Horta [facility] February 23, 2024 3:33pm Note Date/Time February 23, 2024 10:[address] [facility] Medical Records Department [address] [place] [address] Progress Note 02/23/24 0959 MR#: [id number] Acct: [id number] Name: MANSI CARO Rep #:[id number] : 1955 69 From: Heike Horta MD PCP: Dr. Adrienne Byers, DO Status:ADM IN Location: [place]3 YK073-0 Subjective Subjective Patient seen and examined. She [...] Neut % (Auto) 58.7, Lymph % (Auto) 34.0,Phelps % (Auto) 5.7, Eos % (Auto) 1.2, [...] 24-48 hours. Charges/Coding Visit Charges Inpatient E&M: 47844 Subs Hosp L2 02/23/24 1536 <Electronically signed by Heike Horta MD> Heike Horta MD Cosigner Signature (if applicable): CC: ~ Signed [facility] Work Phone: 1(169) 697-127404-02-2024 Procedure [facility] 02-22-2024 Procedure [facility]04-02-2024 Progress note Author Heike Horta [facility] February 22, 2024 2:23pm Note Date/Time February 22, 2024 2:[address] [facility] Medical Records Department [address] [place] [address] [place] [address] Progress Note 02/22/24 1414 MR#: [id number] Acct: [id number] Name: MANSI CARO Rep #:[id number] : 1955 69 From: Heike Horta MD PCP: Dr. Adrienne Byers, DO Status:ADM IN Location: [place] SJ013-2 Subjective Subjective Patient seen and examined. Her [...] (Auto) 88.4 H, Lymph % (Auto) 5.3L, Phelps % (Auto) 5.5, Eos % (Auto) 0.0, [...] Clarity Clear, Urine pH 5.0, Ur Specific [place] 1.015, Urine Protein 15 H, Urine Glucose [...] 76.2 H, Lymph % (Auto) 16.1 L, Phelps % (Auto) 6.9, Eos % (Auto) 0.1, [...] prophylaxis: SCDs. Charges/Coding Visit Charges Inpatient E&M: 86491 [facility] Hosp L3 02/22/24 1423 <Electronically signed by Heike Horta MD> Heike Horta MD Cosigner Signature (if applicable): CC: ~ Signed [facility] Work Phone: 1(667) 703-462504-02-2024 Discharge summary Author Jose Jaime [facility] February 21, 2024 11:34pm Note Date/Time February 21, 2024 2:31 pm [facility] Medical Records Department [address] [place] [address] Emergency Department Summary 02/21/24 MR#: [id number] Acct: [id number] Name: MANSI CARO Rep #:[id number] : 1955 69 From: Jose Liu PCP: Dr. Adrienne Byers, DO Status:ADM [facility] H[facility] - GI History of Present [...] some subjective chills but denies any fevers. [facility] Medical History Anxiety and depression AV node dysfunction Cardiac resynchronization therapy defibrillator (ROTARY DRILL OPERATOR-D) in place Cerebral palsy Congestive heart failure [...] tablet (Thera) 1 tab PO DAILY vitamin 12/28/14 [History Last Taken 10/07/23] trazodone 50 mg [...] 88.4 H Lymph % (Auto) 5.3 L Phelps % (Auto) 5.5 Eos % (Auto) 0.0 [...] Color Urine Clarity Urine pH Ur Specific [place] Urine Protein Urine Glucose (UA) Urine Ketones Urine Occult Blood Urine Nitrite Urine Bilirubin Urine Urobilinogen Ur Leukocyte Esterase Urine RBC Urine WBC Ur Squamous Epith Cells Urine Bacteria Urine Mucus 02/21/24 17:02 WBC RBC Hgb Hct MCV MCH MCHC RDW Std Deviation RDW Coeff of Edita Plt Count MPV Immature Gran % (Auto) Neut % (Auto) Lymph % (Auto) Phelps % (Auto) Eos % (Auto) Baso % [...] Clarity Clear Urine pH 5.0 Ur Specific [place] 1.015 Urine Protein 15 H Urine Glucose [...] Provider] - Disposition Disposition: Acute Care Hospital [facility] What to do if you have Problems For any increased pain, shortness of breath, bleeding, nausea or vomiting, chestpain, or any unexpected problems, contact your Primary Care Provider. Call [facility] ([phone]) or report to the closest Emergency Room. Call 911 if necessary. 02/21/242333 <Electronically signed by Jose Jaime DO> Cosigner Signature (if applicable): CC: Dr. Adrienne Byers DO ~ Signed [facility] Work Phone: 1([phone]) 531-911304-01-2024 History and physical note Author Ben Johnson [facility] February 21, 2024 9:35pm Note Date/Time February 21, 2024 9:35 pm [facility] Medical Records Department [address] [place] [address] H&P Exam - Hospitalist 02/21/242124 MR#: [id number] Acct: [id number] Name: MANSI CARO Rep #:[id number] : 1955 69 From: Ben Johnson DO PCP: Dr. Adrienne Byers, DO Status:ADM IN Location: [facility] CC[facility]-1 HPI - General General Date of Admission: 02/21/24 Date of Service: 02/21/24 Chief Complaint: Abdominal pain, bright red blood in stool HPI Narrative MANSI CAOR, is a 69 F who presents to the emergency room at [facility] for evaluation of right red [...] Patient will be admitted to [place] [address], she will be placed on IV antibiotics, shewill be seen by gastroenterology, she may need endoscopic procedures. Labs willbe monitored. [facility] Medical History Anxiety and depression AV node dysfunction Cardiac resynchronization therapy defibrillator (ROTARY DRILL OPERATOR-D) in place Cerebral palsy Congestive heart failure [...] (Auto) 88.4 H, Lymph % (Auto) 5.3L, Phelps % (Auto) 5.5, Eos % (Auto) 0.0, [...] Clarity Clear, Urine pH 5.0, Ur Specific [place] 1.015, Urine Protein 15 H, Urine Glucose [...] EDT Reading Location ID and State: [facility] / [place] Tel , Service support , Assessment & Plan Assessment/Plan (1) Gastrointestinal bleeding, lower: PLAN: Plan 1. Colitis-etiology unclear, patient will be admitted to [facility] 3, she was placed on IV [...] 75 minutes Charges/Coding Visit Charges Inpatient E&M: 03888 Init Hosp L3 02/21/242134 <Electronically signed by Ben Johnson DO> Cosigner Signature (if applicable): CC: Dr. Ben Johnson, ; Dr. Adrienne Byers DO~ Signed [facility] Work Phone: 1(309) 543-975902-05-2024 Note ORIGINAL EXAMINATION: BONE DENSITOMETRY 12/27/2023 2:34 [...] 12/27/2023 3:14:57 PM Ordering Provider: ADRIENNE Manzanares [facility]01-17-2024 Discharge summary Author Uday Orosco [facility] December 08, 2023 6:11pm Note Date/Time December 08, 2023 4 :37pm [facility] Medical Records Department [address] [place] [address] Emergency Department Summary 12/08/23 MR#: [id number] Acct: [id number] Name: MANSI CARO Rep #:[id number] : [...] She has not been at her baseline. [facility] Medical History Anxiety and depression AV node dysfunction Cardiac resynchronization therapy defibrillator (ROTARY DRILL OPERATOR-D) in place Cerebral palsy Congestive heart failure [...] displaced pelvic or hip fracture. 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 Next of kin: [place] law dictates a PRIORITY LIST for identifying [...] your Primary Care Provider. Call [facility] ([phone]) or report to the closest Emergency Room. Call 911 if necessary. 12/08/23 1811 <Electronically signed by Uday Orosco DO> Cosigner Signature (if applicable): CC: Dr. Adrienne Byers DO ~ Signed [facility] Work Phone: [phone]) 939-781411-29-2023 History of Present illness Narrative* Sherif Ramirez MD - 10/20/2023 3:30 PM EST [facility] - FOLLOW UP EVALUATION Jesus Manuel Freitas DO, DO [address] [facility] [address] Dear Jesus Manuel Freitas DO DO: I [...] her . We had a visit using: Riskclick I have communicated my name and active licensure. The patient's identity and physical location wereverified at the time of this visit. Either the patient or their legal commercial pest control representative has been informed of the risks [...] Flowsheet Row Appointment from 10/20/2023 in [facility] Office Visit from 05/12/2023 in Rehab Medicine [...] Associate Staff Movement disorders [facility] Discharge summary Author Camacho Aguilar [facility] October 12, 2023 11:27am Note Date/Time October 12, 2023 11:25am [facility] Medical Records Department [address] [place] [address] Instructions for Home/Discharge Instructions 10/12/23 1124 MR#: [id number] Acct: [id number] Name: MANSI CARO Rep #:[id number] : [...] MD; Dr. Adrienne Byers DO ~ Signed [facility] Work Phone: 1(709) 645-886911-20-2023 Progress note Author Camacho Aguilar [facility] October 11, 2023 10:04am Note Date/Time October 11, 2023 10:04am [facility] Medical Records Department [address] [place] [address] Progress Note - Hospitalist 10/11/23 1001 MR#: [id number] Acct: [id number] Name: MANSI CARO Rep #:[id number] : 1955 68 From: Camacho renner MD PCP: Dr. Adrienne Byers DO Status:ADM ANGELIA Location: [place] [address] Subjective Subjective Doing well, no issues overnight. [...] 33.5 L, Lymph % (Auto) 54.9 H, Phelps % (Auto) 8.3, Eos % (Auto) 2.5, [...] DVT: Lovenox Charges/Coding Visit Charges Inpatient E&M: 41631 Subs Hosp L2 10/11/23 1004 <Electronically signed by Camacho Aguilar MD> Cosigner Signature (if applicable): CC: ~ Signed [facility] Work Phone: [phone]) 515-709911-19-2023 Progress note Author Tony Mayer [facility] October 10, 2023 10:13am Note Date/Time October 10, 2023 7:57am [facility] Medical Records Department [address] [place] [address] Progress Note - Hospitalist 10/10/23 0754 MR#: [id number] Acct: [id number] Name: MANSI CARO Rep #:[id number] : 1955 68 From: Tony Mayer MD PCP: Dr. Adrienne Byers, DO Status:ADM ANGELIA Location: [place] [address] Reason for Visit Reason for Visit: Diagnoses [...] 35 Minutes Charges/Coding Visit Charges Inpatient E&M: 87420 Subs Hosp L2 10/10/23 1013 <Electronically signed by Tony Mayer MD> Cosigner Signature (if applicable): CC: ~ Signed [facility] Work Phone: 1(494) 278-141011-18-2023 Progress note Author Tony Mayer [facility] October 09, 2023 9:43am Note Date/Time October 09, 2023 9:15am [facility] Medical Records Department [address] [place] [address] Progress Note - Hospitalist 10/09/23 0912 MR#: [id number] Acct: [id number] Name: MANSI CARO Rep #:[id number] : 1955 68 From: Tony Mayer MD PCP: Dr. Adrienne Byers, DO Status:ADM ANGELIA Location: [place] [address] Reason for Visit Reason for Visit: Diagnoses [...] 18:21 EST Reading Location ID and State: [address] [place] [place] [address] Tel , Service support , Physical Exam [...] 35 Minutes Charges/Coding Visit Charges Inpatient E&M: 81905 Subs Hosp L2 10/09/23 0943 <Electronically signed by Tony Mayer MD> Cosigner Signature (if applicable): CC: ~ Signed [facility] Work Phone: 1(803) 325-496111-17-2023 Progress note Author Tony Mayer [facility] October 08, 2023 12:45pm Note Date/Time October 08, 2023 8:45am [facility] Medical Records Department [address] [place] [address] Progress Note - Hospitalist 10/08/23 0844 MR#: [id number] Acct: [id number] Name: MANSI CARO Rep #:[id number] : 1955 68 From: Tony Mayer MD PCP: Dr. Adrienne Byers, DO Status:ADM ANGELIA Location: [place] [address] Reason for Visit Reason for Visit: Diagnoses [...] (Auto) 41.7 L, Lymph % (Auto) 47.6 H,Phelps % (Auto) 9.0, Eos % (Auto) 0.9, [...] 41.9 L, Lymph % (Auto) 45.5 H, Phelps % (Auto) 9.3, Eos % (Auto) 2.5, [...] 50 Minutes Charges/Coding Visit Charges Inpatient E&M: 13998 [facility] Hosp L3 10/08/23 7727 <Electronically signed by Tony Mayer MD> Cosigner Signature (if applicable): CC: ~ Signed [facility] Work Phone: 1([phone]) 433-774911-16-2023 Discharge summary Author David Best [facility] October 07, 2023 4:57pm Note Date/Time October 07, 2023 1:03pm [facility] Medical Records Department [address] [place] [address] Emergency Department Summary 10/07/23 MR#: [id number] Acct: [id number] Name: MANSI CARO Rep #:[id number] : 1955 68 From: David Weller PCP: Dr. Adrienne Byers, DO Status:ADM ANGELIA Location: [address] History of Present Illness Chief Complaint: Stroke Alert Informant: patient, spouse/S.O. and SNF Narrative Narrative: [facility] starting 15 minutes prior to arrival at 12:15 PM. Patient reports right-sided weakness. History of stroke in the past. She was recently seen this past Wednesday for stroke work- up with similar presentation. Initial evaluation in [facility] had right arm drift, right [...] AV node dysfunction Cardiac resynchronization therapy defibrillator (ROTARY DRILL OPERATOR-D) in place Cerebral palsy Congestive heart failure [...] neurologist, hospitalist This note was generated with [employer] dictation software. It may contain incorrectwords, spelling, [...] 41.7 L Lymph % (Auto) 47.6 H Phelps % (Auto) 9.0 Eos % (Auto) 0.9 [...] (excluding procedures): 30-74 minutes, Discussing w/Patient &/or Family/Machine Tool Technology Instructor, Discussing w/Consultants, Arranging Admission or Transfer, Performing Direct Patient Care at Bedside and - (30 minutes) Discharge Plan Dx/Rx/DC Orders Clinical Impression: Transient ischemic attack, Ischemic cardiomyopathy, PFO (patent foramen ovale) Disposition Disposition: Acute Care Hospital [facility] Discharge Date/Time: 10/07/23 15:06 What to do if you have Problems For any increased pain, shortness of breath, bleeding, nausea or vomiting, chestpain, or any unexpected problems, contact your Primary Care Provider. Call [facility] ([phone]) or report to the closest Emergency Room. Call 911 if necessary. 10/07/231656 <Electronically signed by David Weller> Cosigner Signature (if applicable): CC: Dr. Adrienne Byers DO ~ Signed [facility] Work Phone: 1([phone]) 136-842111-16-2023 History and physical note Author Jaci Greco [facility] October 07, 2023 2:38pm Note Date/Time October 07, 2023 1:59pm [facility] Medical Records Department [address] [place] [address] H&P Exam - Hospitalist 10/07/23 1355 MR#: [id number] Acct: [id number] Name: MANSI CARO Rep #:[id number] : [...] and Plavix who now re-presents to the [facility] ED on 10/07/23 with history of [...] patient administered baclofen 10 mg p.o. x1. [facility] Medical History (Updated 10/07/23 @ 14:[address] Jaci Greco MD) Anxiety and depression AV node dysfunction Cardiac resynchronization therapy defibrillator (ROTARY DRILL OPERATOR-D) in place Cerebral palsy Coronary artery disease [...] (Auto) 41.7 L, Lymph % (Auto) 47.6 H,Phelps % (Auto) 9.0, Eos % (Auto) 0.9, [...] and Plavix who now re-presents to the [facility] ED on 10/07/23 with history of [...] DVT prophylaxis: Lovenox. #13. CODE status: Patient HCPEVELIA is her who is present and living will is currently in place. Discussed CODE status at length including difference between FULL code, DNR-CCA and DNR-CC status. Following discussions about the differences in these status, requested Full Code status. Advanced Care Planning Face to Face Time: 16 minutes. Charges/Coding Visit Charges Inpatient E&M: 06849 Init Hosp L3 Procedures Hospitalists Procedures: 73765 Advncd Care Plan 30 Min 10/07/23 1438 <Electronically signed by Jaci Greco MD> Cosigner Signature (if applicable): CC: Dr. Jaci Greco MD; Dr. Adrienne Byers, DO~ Signed [facility] Work Phone: [phone]) 693-322411-12-2023 Progress note Author Alonso Marte [facility] October 03, 2023 1:49pm Note Date/Time October 03, 2023 10:38am [facility] Medical Records Department [address] [place] [address] Progress Note - Pharmacy 10/03/23 1035 MR#: [id number] Acct: [id number] Name: GORDOMANSI HILARIO Rep #:[id number] : 1955 68 From: Talat Cameron PCP: Dr. Adrienne Byers, DO Status:ADM IN Location: [place] [address] Documented by User: Talat Cameron 10/03/23 11:16 [...] 09:13 Multivitamins,Therapeutic Tablet PO 1 tablet DAILYCM [facility] Administration Multivitamins 1 cap 10/02/23 08:00 10/03/23 09:13 Vitamin B Comp W-C Capsule PO 1 cap DAILYCM [facility] Administration Nutritional Formula (Lactose Free) 120 ml [...] 25 Mg Tablet PO MOWEFR [facility] Tolterodine Tartrate 2 mg 10/01/23 15:17 Tolterodine [...] by Alonso Marte MD> CC: ~ Signed [facility] Work Phone: 1([phone]) 550-415611-10-2023 History and physical note Author Alonso Marte [facility] October 01, 2023 4:18pm Note Date/Time October 01, 2023 4:07pm [facility] Medical Records Department [address] [place] [address] History & Physical Exam 10/01/23 1558 MR#: [id number] Acct: [id number] Name: MANSI CARO Rep #:[id number] : 1955 68 From: Alonso Marte MD PCP: Dr. Adrienne Byers, DO Status:ADM IN Location: [place] [address] HPI - General General Date of Admission: 10/01/23 Date of Service: 10/01/23 Chief Complaint: Here for rehabilitation. HPI Narrative 09/28/2023 MANSI CARO, is a 68 Female who presents to [facility] Emergency Department with neurologic signs/symptoms. Presents with [...] strengthening, prior to discharge home with . [facility] Medical History (Updated 10/01/23 @ 16:[address] 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 * Anxiety - Clonazepam 1mg qhs, stable chronic terminal operations supervisor use, GDR not recommended. * Diabetes Mellitus [...] - Trazodone 50mg qhs prn, stable chronic terminal operations supervisor use, GDR not recommended. * Leg cramp - Vitamin B complex 1 cap daily. 10/01/23 1618 <Electronically signed by Alonso Marte MD> Cosigner Signature (if applicable): CC: Dr. Adrienne Byers DO; Dr. Alonso Marte MD~ Signed [facility] Work Phone: 1(425) 901-603111-10-2023 Discharge summary Author Ben Johnson [facility] October 01, 2023 11:57am Note Date/Time October 01, 2023 11:57am [facility] Medical Records Department [address] [place] [address] Transfer to Extended Care MR#: [id number] Acct: [id number] Name: MANSI CARO Rep #:[id number] : 1955 68 From: Ben Johnson DO PCP: Dr. Adrienne Byers DO Status:ADM IN Certification of patient admission REQUIRED AT TIME OF ADMISSION. I CERTIFY THAT POST-HOSPITAL ECF SERVICES ARE REQUIRED TO BE GIVEN ON AN IN-PATIENT BASIS BECAUSE OF THE ABOVE NAMED PATIENT'S NEED FOR PENITENTIARY CARE ON A CONTINUING BASIS FOR THE CONDITION(S) FOR WHICH HE/SHE WAS RECEIVING IN-PATIENT HOSPITAL SERVICES PRIOR TO HIS/HER TRANSFER TO THE [facility]. 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 Hx of word finding difficulty after CVA [...] patient reports may be inpatient rehab at [facility]. Discharge Plan Admission Admit Date/Time: 09/28/23 [...] water retention) Patient Comments: TAKING NEEDED vitamin S85-titkg acid 1 tab PO DAILY pantoprazole 40 [...] can be placed): Home, Self Care 10/01/23 0242 <Electronically signed by Ben Johnson DO> Cosigner Signature (if applicable): CC: Dr. Tony Corona, DO; Dr. Adrienne Byers DO ~ [facility] Work Phone: [phone]) 732-320711-09-2023 Progress note Author Ben Johnson [facility] September 30, 2023 5:30pm Note Date/Time September 30, 2023 5 :30pm [facility] Medical Records Department [address] [place] [address] Progress Note - Hospitalist 09/30/23 1726 MR#: [id number] Acct: [id number] Name: MANSI CARO Rep #:[id number] : 1955 68 From: Ben Johnson DO PCP: Dr. Adrienne Byers DO Status:ADM IN Location: [place] [address] Reason for Visit Reason for Visit: Diagnoses [...] 09/29/23 14:29 AG (Rec: 09/29/23 14:29 AG [id number]) Nutrition Malnutrition Evidence of Malnutrition Exists Yes [...] times a day will be given with neoSaej Total clinical time spent by myself addressing patient's medical issues, reviewing all of her data, and collaborating with patient's care team: 35-minutes Charges/Coding Visit Charges Inpatient E&M: 72857 Subs Hosp L2 11/09/23 1730 <Electronically signed by Ben Johnson DO> Cosigner Signature (if applicable): CC: ~ Signed [facility] Work Phone: 1([phone]) 146-687711-09-2023 Discharge summary Author Ben Johnson [facility] September 30, 2023 11:55am Note Date/Time September 30, 2023 1 1:52am [facility] Medical Records Department [address] [place] [address] Instructions for Home/Discharge Instructions 09/30/23 1151 MR#: [id number] Acct: [id number] Name: MANSI CARO Rep #:[id number] : 1955 68 From: Ben Johnson DO [...] water retention) Patient Comments: TAKING NEEDED vitamin T71-xqxww acid 1 tab PO DAILY pantoprazole 40 [...] ; Dr. Adrienne Byers DO ~ Signed [facility] Work Phone: 1(298) 878-936211-08-2023 Progress note [facility] September 29, 2023 5:39pm Note Date/Time September 29, 2023 5 :25pm [facility] Medical Records Department [address] [place] [address] Progress Note - Hospitalist 09/29/23 1717 MR#: [id number] Acct: [id number] Name: MANSI CARO Rep #:[id number] : 1955 68 From: Ben Johnson DO PCP: Dr. Adrienne Byers DO Status:ADM IN Location: [place] [id number] Reason for Visit Reason for Visit: [...] Protocol: Document 09/29/23 14:29 (Rec: 09/29/23 14:29 [id number]) Nutrition Malnutrition Evidence of Malnutrition Exists Yes [...] (Auto) 40.8 L, Lymph % (Auto) 49.7 H,Phelps % (Auto) 7.6, Eos % (Auto) 1.0, [...] Clarity Clear, Urine pH 8.0, Ur Specific [place] 1.010, Urine Protein Negative, Urine Glucose (UA) [...] team: 35-minute Charges/Coding Visit Charges Inpatient E&M: 68864 Subs Hosp L2 09/29/23 8881 <Electronically signed by Ben Johnson DO> Cosigner Signature (if applicable): CC: ~ Signed [facility] Work Phone: 1(158) 967-369911-08-2023 History and physical note Author Tony Mejia [facility] September 29, 2023 7:10am Note Date/Time September 28, 2023 1 0:22pm [facility] Medical Records Department [address] [place] [address] H&P Exam - Hospitalist 09/28/230 MR#: [id number] Acct: [id number] Name: MANSI CARO Rep #:[id number] : 1955 68 From: Tony Williamson DO PCP: Dr. Adrienne Byers DO Status:ADM IN Location: [address] 1 HPI - General General Date [...] place, depression and osteoarthritis who presents to [facility] ER complaining of strokelike symptoms with fragmented [...] that was negative for Parkinson's disease at [place], where she normally receives her care. She denies fever, chills, nausea, vomiting, diarrhea or constipation. Stroke alert was called in the ER with patient outside the window for tPA and already improving clinically with suspicion for a possible CVA due to her PFO and she was then admitted to the [facility] ongoing care for a stay that is expected to be greater than 48 hours. [facility] Medical History Anxiety Cardiac resynchronization therapy defibrillator (ROTARY DRILL OPERATOR-D) in place Congestive heart failure (CHF) Coronary [...] EDEMA 09/28/23 [History Last Taken Unknown] vitamin B90-hinui acid 1 tab PO DAILY vitamin 09/28/23 [...] place andoriented to time Coordination / Balance: hfqwhv-tw-lirt test normal and dhnl-yy-tvpp test normal Speech: speech normal Motor Exam: [...] (Auto) 40.8 L, Lymph % (Auto) 49.7 H,Phelps % (Auto) 7.6, Eos % (Auto) 1.0, [...] Clarity Clear, Urine pH 8.0, Ur Specific [place] 1.010, Urine Protein Negative, Urine Glucose (UA) [...] 55 minutes. Charges/Coding Visit Charges Inpatient E&M: 56805 Init Hosp L2 09/29/23 0710 <Electronically signed by Tony Corona DO> Cosigner Signature (if applicable): CC: Dr. Tony Corona DO; Dr. Adrienne Byers DO~ Signed [facility] Work Phone: 1(506) 973-294611-08-2023 Discharge summary [facility] September 28, 2023 10:10pm Note Date/Time September 28, 2023 8 :55pm [facility] Medical Records Department [address] [place] [address] Emergency Department Summary 09/28/23 MR#: [id number] Acct: [id number] Name: MANSI CARO Rep #:[id number] : 1955 68 From: Uday Orosco DO PCP: Dr. Adrienne Byers DO Status:ADM IN Location: [address] History of Present Illness Chief Complaint: [...] spastic right lowerextremity. Patient is on Plavix. [facility] Medical History Cardiac resynchronization therapy defibrillator (ROTARY DRILL OPERATOR-D) in place Diabetes mellitus Hyperlipidemia Hypertension Myocarditis [...] EDEMA 09/28/23 [History Last Taken Unknown] vitamin D78-wzkzn acid PO 09/28/23 [History Last Taken Unknown] [...] 40.8 L Lymph % (Auto) 49.7 H Phelps % (Auto) 7.6 Eos % (Auto) 1.0 [...] Clarity Clear Urine pH 8.0 Ur Specific [place] 1.010 Urine Protein Negative Urine Glucose (UA) [...] your Primary Care Provider. Call [facility] ([phone]) or report to the closest Emergency Room. Call 911 if necessary. 09/28/232209 <Electronically signed by Uday Orosco DO> Cosigner Signature (if applicable): CC: Dr. Adrienne Byers DO ~ Signed [facility] Work Phone: 1(937) 577-326711-07-2023 Discharge summary Author Uday Orosco [facility] September 28, 2023 10:10pm Note Date/Time September 28, 2023 8 :55pm [facility] Medical Records Department [address] [place] [address] Emergency Department Summary 09/28/23 MR#: [id number] Acct: [id number] Name: MANSI CARO Rep #:[id number] : 1955 68 From: Uday Orosco DO PCP: Dr. Adrienne Byers DO Status:ADM IN Location: [address] 1 [facility] History of Present Illness Chief Complaint: Neuro [...] spastic right lowerextremity. Patient is on Plavix. [facility] Medical History Cardiac resynchronization therapy defibrillator (ROTARY DRILL OPERATOR-D) in place Diabetes mellitus Hyperlipidemia Hypertension Myocarditis [...] EDEMA 09/28/23 [History Last Taken Unknown] vitamin E21-cpbyd acid PO 09/28/23 [History Last Taken Unknown] [...] Air Room Air 09/28/23 20:12 09/28/23 20:12 11/07/23 20:27 Temperature Temperature Source Pulse Rate 79 [...] 40.8 L Lymph % (Auto) 49.7 H Phelps % (Auto) 7.6 Eos % (Auto) 1.0 [...] Clarity Clear Urine pH 8.0 Ur Specific [place] 1.010 Urine Protein Negative Urine Glucose (UA) [...] your Primary Care Provider. Call [facility] ([phone]) or report to the closest Emergency Room. Call 911 if necessary. 09/28/232209 <Electronically signed by Uday Orosco DO> Cosigner Signature (if applicable): CC: Dr. Adrienne Byers DO ~ Signed [facility] Work Phone: 1(851) 285-342210-31-2023 History of Present illness Narrative* Nirmal Carpio, [...] 1010 PATIENT DISCHARGED TO: Ambulatory patient, left MS department area. A Diagnostic radioactive procedure has taken place, with no further precautions necessary other than routine body substance precautions. More information regarding radiation safety can be found usingecomoms link: [email or web address]/Rad%[email or web address]-% 20Diagnostic%20Nuclear%20Medicine%20Procedures.pdf SIGNATURE: RT [facility]([place]) PATIENT NAME: Mansi Caro DATE: September 21, 2023 TIME: 10:00 AM PAGER/CONTACT #: documented in [facility]Medina [facility]2023 Note ORIGINAL EXAMINATION: CT OF THE [...] Sign Date: 09/07/2023 10:17:27 AM Ordering Provider: [facility]10-08-2023 Note . MICRO - Microbiology PROCEDURE: Urine [...] Locations *1: This test was performed at: [address], [facility] , [facility] ([place])08-04-2023 Hospital Discharge instructions Patient Education 08/04/2023 12:31:44 [...] animal will probably be confined with its family lawyer for 10 days. If the animal does [...] bats may notbe noticed, especially by children. 3750-5079 The protected-networks.com. [address] [place] [address]. All rights reserved. This information is not intended as a substitute for professional medical care. Always follow yourhealthcare professional's instructions. 08/04/2023 12:31:41 9- AO ED Rabies Follow-up Vaccination [facility] Rabies Follow-Up Vaccination Information Sheet SUMMARY [...] your follow-up rabies vaccinations. OR Call the [facility] at to schedule your follow-up vaccination appointments. Hours: 8a-4:30p, Wednesday through Wednesday OR Call [facility] to schedule your follow-up vaccination appointments. Follow Up Care 08/04/2023 11:57:19 With:ADRIENNE BYERS Address: [address] [facility] [place] [phone]- [phone] Business (1) When:2-4 days [facility] 09-13-2023 Emergency department Discharge summary Discharge [...] BYERS When Within 2-4 days Where: [address] [place] [address]- [phone] Business (1) Allergies NKA Immunizations This Visit [...] animal will probably be confined with its family lawyer for 10 days. If the animal does [...] bats may notbe noticed, especially by children. 7690-1263 The protected-networks.com. [address] [place] [address]. All rights reserved. This information is not intended as a substitute for professional medical care. Always follow yourhealthcare professional's instructions. [facility] Rabies Follow-Up Vaccination Information Sheet SUMMARY After [...] your follow-up rabies vaccinations. OR Call the [facility] at to schedule your follow-up vaccination appointments. Hours: 8a-4:30p, Wednesday through Wednesday OR Call [facility] to schedule your follow-up vaccination appointments. Additional Information VACCINATE! IT SAVES LIVES! Members of the community who have not yet received the COVID-19 vaccine and would like to receive it can visit one of [facility] vaccine clinics. There are many vaccine clinic locations within the [facility]. For locations and available times, please visit www.gettheshot.coronavirus.[place].gov/. It is important to note that some COVID mobile vaccine clinics are held outdoors and may be canceled in rainy or stormy conditions. To learn more about pediatric vaccinations (ages 5-11), we invite you to visit the [facility] webpage. https://www.akronDiscountIFs.org/pages/4226-Tjqxu-Umohgoqzjhd-Tpwzvwglkg-Ublhi-Fxf stions.htmlTo learn more about the COVID-19 vaccine, we invite you to visit the CDC website for a list of frequently asked questions. https://www.cdc.gov/coronavirus/2019-ncov/vaccines/faq.html [place] [facility] Patient Portal Access Instructions: Stay connected with your healthcare team and access your personal medical information anytime with the [facility] [employer] Patient Portal. If you would like a full copy of your medical records please contact the [facility] Medical Records Department Wednesday through Wednesday between 8a.m. and 4:30p.m. Please follow the directions below to access the portal: 1.Access the email account you provided upon registration to the hospital.2.Look for an invitation email from [facility].3.Open the email and access the invitation link: Accept Invitation to [facility]4.Fill in the required tirado to create your account. Sign into www.[employer] with your username and password that you [...] you will allow to register on the [facility] Patient Portal for access to your information. You can also access the [facility] Patient Portal on the [facility]. Simply click on Health Records under Talystta and then click on the Katie logo. [...] Call your local pharmacy or go to http://Vayyar.Art of Click/9C0Wn2j to find one close to you.3.Make use of household items: Use cat litter or old coffee grounds to dispose medications if other options arenot available. Mix your drugs with these household products, seal them in an airtight container andthrow it into the garbage. Call [facility]: [phone] to be sure your drugs can be [...] aware that I should contact my doctor. 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 Caro for follow-up today. As you know she is a 68 year old right-handed female with a history of left hand tremor since 2021. She is seen alone. We had a visit using: Riskclick I have communicated my name and active licensure. The patient's identity and physical location wereverified at the time of this visit. Either the patient or their legal commercial pest control representative has been informed of the risks and benefits of -- and alternatives to -- treatment through a remote evaluation andconsents to proceed with the evaluation remotely. I have communicated my name and active licensure. The patient's identity and physical location wereverified at the time of this visit. Either the patient or their legal commercial pest control representative has been informed of the risks [...] Office Visit from 05/12/2023 in [facility] from 10/12/2022 in [facility] T Score 32.4 39.8 [...] Jose MARIN Current Outpatient Medications Medication Sig baclofen [...] Associate Staff Movement [facility]Med[facility] Note* Exam Date Time Procedure Performing Provider Status 06/09/23 12:53 PM Echocardiogram, Adult (AOH) Auth (Verified) [facility] 06-26-2023 Miscellaneous Notes* Telephone Encounter - Cheri Gill RN - 05/17/2023 3:27 PM EDT This was approved Called left message on identified VM of Beatrice that this was approved and to check with [facility] pharmacy Called [facility] pharmacy, talked with Orquidea and [...] medication on Wed., 05/19/23 documented in this encounterMedina Hospital06-26-2023 Miscellaneous Notes* Telephone Encounter - Cheri Gill RN - 05/17/2023 11:16 AM EDT Images from the original note were not included. * Telephone Encounter - Janee Argueta RN - 05/14/2023 10:48 AM EDT A PA has been submitted via [employer] Name:[employer] Phone Number: Patient ID number: [id number] Medication: Baclofen Dosage: 5mg Rios:[id number] PA Janee Argueta RN documented in this encounterMedina Hospital06-23-2023 Miscellaneous Notes* Telephone Encounter - Janee Argueta RN - 05/14/2023 11:17 AM EDT PA submitted via coverAppLabss. Janee Argueta RN * Telephone Encounter - Ghazala Gusman MD - 05/14/2023 8:56 AM EDT I'll forward to Janee ROWLEY * Telephone Encounter - Humaira Wetzel - 05/13/2023 4:43 PM EDT [facility] Pharmacy was called and the [...] and advise. Humaira Wetzel documented in this encounterMedina Hospital06-21-2023 History of Present illness Narrative* Ghazala [...] noted at rest but better with activity. ROTARY DRILL OPERATOR D placed on 05/12/22. Ongoing issues: Feeling [...] which included preparing to see the patient, dybq-gy-zjyg patient care, completing clinical documentation, performing a medically appropriate examination, counseling and educating the patient/family/caregiver, and ordering medications, tests,or procedures. documented in this encounterMedina Hospital06-21-2023 Nurse Note* Janee Argueta RN - 05/12/2023 1:24 PM EDT Patient presents for spasticity on right side The following tests/records were reviewed:no Do you need any refills today from the doctor?yes Janee Argueta RN documented in this encounterMedina Hospital12-15-2022 Miscellaneous Notes* Telephone Encounter - Jelly Gomez RN - 11/05/2022 4:26 PM EST Called and spoke with Mrs. Gordo Cuello's , and went over Dr. Gusman's message [...] wait until she returns. documented in this encounterMedina Hospital11-21-2022 History of Present illness Narrative* Sherif Ramirez MD - 10/12/2022 1:45 PM EST [facility] - FOLLOW UP EVALUATION Jesus Manuel Freitas, DO, DO [address] [facility] [address] Freitas, I had the pleasure of seeing Ms. Caro for follow-up today. As you know she is a 67 year old right-handed female with a history of left hand tremor since 2021. She is seen alone. We had a visit using: Riskclick I received consent from the patient to [...] Flowsheet Row Appointment from 10/12/2022 in [facility] from 08/10/2022 in [facility] T Score 39.8 37.4 [...] allergic reaction and is willing to rechallenge [facility] RN Current Outpatient Medications Medication Sig [...] research? Not currently Level of service : 47090 (10-19 min). Time spent 15 min on the day of service, which included preparing to see the patient, zrkp-nt-jzda patient care, completing clinical documentation, obtaining and/or [...] Associate Staff Movement disorders [facility] documented in this encounterMedina Hospital09-29-2022 Hospital Discharge instructions Patient Education 08/19/2022 [...] swelling in the outer vaginal area (labia) 0309-1481 The protected-networks.com. [address] [place] [address]. All rights reserved. This information is not [...] about: All medicines you take, including prescription, xubu-xmf-rzgeaxp, herbs, and supplements Any other symptoms you [...] Chest, arm, neck, back, or jaw pain 5947-[address] [place] [address]. All rights reserved. This information is not intended as a substitute for professional medical care. Always follow yourhealthcare professional's instructions. Follow Up Care 08/19/2022 14:59:40 With:LARY WHEAT DO Address: [address] [place] [phone] When:2-4 days [facility] 09-29-2022 Emergency department Discharge summary Discharge Instructions Thank you for allowing [place] to assist you with your healthcare needs. The following is importantdischarge information regarding your hospital visit. Diagnosis from Today's Visit Generalized weakness Fatigue What to Do Next Instructions from Your Care Team No qualifying data available. Post Acute Orders No qualifying data available. You Need to Schedule the Following Appointments Follow Up with LARY WHEAT DO When Within 2-4 days Where: [address] [place] [phone]- [phone] Allergies NKA Medications Please ask your primary [...] in the outer vaginal area (labia) The protected-networks.com. [address] [place] [address]. All rights reserved. This information is not intended as a substitute for professional medical care. Always follow yourhealthcare professional's instructions. Dizziness (Uncertain Cause) Dizziness is a common symptom. It may be described as lightheadedness, spinning, or feeling like you are going to faint. Dizziness can have many causes. Be sure to tell the healthcare provider about: All medicines you take, including prescription, onje-abo-rckerww, herbs, and supplements Any other symptoms you [...] arm, neck, back, or jaw pain The protected-networks.com. [address] [place], [place] [address]. All rights reserved. This information is not intended as a substitute for professional medical care. Always follow yourhealthcare professional's instructions. Additional Information VACCINATE! IT SAVES LIVES! Members of the community who have not yet received the COVID-19 vaccine and would like to receive it can visit one of [facility] vaccine clinics. There are many vaccine clinic locations within the [facility]. For locations and available times, please visit www.gettheot.coronavirus.[place].org. It is important to note that some COVID mobile vaccine clinics are held outdoors and may be canceled in rainy orstormy conditions. To learn more about pediatric vaccinations (ages 5-11), we invite you to visit the [facility] webpage. https://www.akDepositphotoss.org/pages/4536-Fuyrq-Zhynsmnfmvm-Mkbfjmqxsp-Tbbko-Kpv stions.htmlTo learn more about the COVID-19 vaccine, we invite you to visit the [place] website for a list of frequently asked questions. [email or web address]://[email or web address]/Syughset-anh-Zyjvvrfn/xjoqq-Shvnooc-Dnrundjnpv _Asked-Questions.pdf [place] [facility] Patient Portal Access Instructions: Stay connected with your healthcare team and access your personal medical information anytime with the [facility] [employer] [facility] Patient Portal. If you would like a full copy of your medical records please contact the [facility] Medical Records Department Wednesday through Wednesday between 8a.m. and 4:30p.m. Please follow the directions below to access the portal: 1.Access the email account you provided upon registration to the [facility].2.Look for an invitation email from [facility].3.Open the email and access the invitation link: Accept Invitation to [facility]4.Fill in the required tirado to create your account. Sign into www.[employer]A [employer] with your username and password that you [...] you will allow to register on the [facility] [facility] Patient Portal for access to your information. You can also access the [employer] Patient Portal on the [facility]. Simply click on Health Records under VuCOMP and then click on the LessThan3 logo. HOW TO SAFELY DISPOSE OF PRESCRIPTION [...] Call your local pharmacy or go to http://Vayyar.Art of Click/2L1Cg2p to find one close to you.3.Make use of household items: Use cat litter or old coffee grounds to dispose medications if other options arenot available. Mix your drugs with these household products, seal them in an airtight container andthrow it into the garbage. Call [facility]: [phone] to be sure your drugs can be [...] aware that I should contact my doctor. 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 [address] [place] [address]. All rights reserved. This information is not intended as a substitute for professional medical care. Always follow yourhealthcare professional's instructions. Dizziness (Uncertain Cause) Dizziness is a common symptom. It may be described as lightheadedness, spinning, or feeling like you are going to faint. Dizziness can have many causes. Be sure to tell the healthcare provider about: All medicines you take, including prescription, mqvc-lrz-cmfpzay, herbs, and supplements Any other symptoms you [...] arm, neck, back, or jaw pain The protected-networks.com. [address] [place], [place] [address]. All rights reserved. This information is not intended as a substitute for professional medical care. Always follow yourhealthcare professional's instructions. Additional Information VACCINATE! IT SAVES LIVES! Members of the community who have not yet received the COVID-19 vaccine and would like to receive it can visit one of [facility] vaccine clinics. There are many vaccine clinic locations within the [facility]. For locations and available times, please visit www.gettheshot.coronavirus.[place].org. It is important to note that some COVID mobile vaccine clinics are held outdoors and may be canceled in rainy orstormy conditions. To learn more about pediatric vaccinations (ages 5-11), we invite you to visit the [facility] webpage. https://www.akronchildrens.org/pages/4637-Wejie-Hdyhsqldrcs-Wpssvzfcfo-Nurff-Veq stions.htmlTo learn more about the COVID-19 vaccine, we invite you to visit the [place] website for a list of frequently asked questions. [email or web address]/Ufspcjwi-oci-Nyzhbrcl/lnxek-Nrknutz-Nknpevzeel _Asked-Questions.pdf [facility] Patient Portal Access Instructions: Stay connected with your healthcare team and access your personal medical information anytime with the [employer] [facility] Patient Portal. If you would like a full copy of your medical records please contact the [facility] Medical Records Department Wednesday through Wednesday between 8a.m. and 4:30p.m. Please follow the directions below to access the portal: 1.Access the email account you provided upon registration to the hospital.2.Look for an invitation email from [facility].3.Open the email and access the invitation link: Accept Invitation to [employer]4.Fill in the required tirado to create your account. Sign into www.[email or web address] with your username and password that you [...] you will allow to register on the [employer] Patient Portal for access to your information. You can also access the [employer] Patient Portal on the [employer] ricardo. Simply click on Health Records under Expediciones.mxData and then click on the Katie logo. [...] Call your local pharmacy or go to [email or web address].Art [email or web address] [email or web address] to find one close to you.3.Make use of household items: Use cat litter or old coffee grounds to dispose medications if other options arenot available. Mix your drugs with these household products, seal them in an airtight container andthrow it into the garbage. Call [facility]: [phone] to be sure your drugs can be [...] been reviewed and explained to me and IGORDO SHERRY A understand my current condition and have read and understand these discharge instructions. I have received a written copy of the plan/instructions. If I have questions, I am aware that I should contact my doctor. 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 Signature: Date/Time: Relationship to Patient: Witness Name/Signature: Date/Time: [id number] HCoV 229E RNA ENRIQUE+non-probe Ql (Nph)Not Detected *NA* (08/19/22 4:45 PM)AH Auto Viro/Sero [id number] Note ORIGINAL EXAMINATION: ONE XRAY VIEW OF [...] 08/19/2022 4:42:10 PM Ordering Provider: MARTHA SHER [id number] Note ORIGINAL EXAMINATION: ONE XRAY VIEW OF [...] Sign Date: 08/19/2022 4:42:10 PM Ordering Provider: [facility]09-19-2022 History of Present illness Narrative* Sherif Ramirez MD - 08/10/2022 3:41 PM EDT [facility] - FOLLOW UP EVALUATION Jesus Manuel Freitas, DO, DO [address] [facility] [address] Freitas, I had the pleasure of seeing Ms. Caro for follow up today. she is a 67 year old right-handed female with a history of lef thand tremor since 2021. She is seen with her . We had a visit using: Riskclick I received consent from the patient to perform the visit using this platform. Subjective HISTORY OF PRESENT ILLNESS: During her previous visit the following plan was made: Previous plan-06/23/2022 Visit: Tremor -patient will contact us via Wheeldo messaging should she wish to proceed with [...] Flowsheet Row Appointment from 08/10/2022 in [facility] from 10/30/2021in Spine [facility] [...] allergic reaction and is willing to rechallenge [facility] Current Outpatient Medications Medication Sig [...] Medication Schedule: Medications Level of service : 18572 (20-29 min). Time spent 20 min on the day of service, which included preparing to see the patient, tthe-po-azvs patient care, completing clinical documentation, obtaining and/or [...] Associate Staff Movement disorders [facility] documented [facility] this [facility]08[facility] Instructions* Patient Instructions* Carleen Denton MD [...] scans like Clemencia scan. Discuss with your hat braider starting Sinemet and send us a message via Storitz if you'd like to start the medication Return in about 3 months (around 09/23/2022) for Virtual Visit. If there are any concerns before your next visit, please call or you can send a message through Wheeldo. You can also now schedule and select appointments through Wheeldo. Carleen Denton MD documented in this encounterMedina Hospital08-02-2022 History of Present illness Narrative* Sherif Ramirez MD - 06/23/2022 3:23 PM EDT [facility] - NEW PATIENT EVALUATION Ghazala Gusman [address] [place] [address] Jesus Manuel Freitas DO, DO [address] [facility] [address] Gusman: thank you for referring [...] EF and she eventually needed insertion of ROTARY DRILL OPERATOR-D in April. In addition to her new [...] keeping her appointments. She is independent in FANCRUAravs. Her grandmother may have had a tremor. [...] allergic reaction and is willing to rechallenge [facility] RN Current Outpatient Medications Medication Sig [...] 3+ 2+ Patellar 3+ 2+ Coordination Right: Ufqiev-kt-voxj normal. Rapid alternating movement abnormality: Mild right-sided slowing of finger and hand movements in the context of spasticity. Moderate slowing of left finger and hand movements. Mild slowing is seen in left toe tapping and leg agility.. Left: Fnhghz-bt-iwpy normal. Rapid alternating movement abnormality: Gait Slow [...] the amplitude decrements starting after the 1st ztuh-gwz-duqtk sequence. Arm Movements Right 2-Mild. a) 3 [...] to discuss the levodopa trial with her hat braider to see if there is any cardiac [...] Visit: Tremor -patient will contact us via Wheeldo messaging should she wish to proceed with Sinemet trial. Virtual follow-up in 3 months Interested in clinical research? Not currently Level of service : 00372 (60-74) min). Time spent 60 min on the day of service, which included preparing to see the patient, bman-xf-mzss patient care, completing clinical documentation, obtaining and/or [...] Associate Staff Movement disorders [facility] documented in this encounterMedina Hospital07-14-2022 History of Present illness Narrative* Ghazala [...] noted at rest but better with activity. ROTARY DRILL OPERATOR D placed on 05/12/22. No new N/T [...] which included preparing to see the patient, ntrs-yi-zewy patient care, completing clinical documentation, performing a medically appropriate examination, counseling and educating the patient/family/caregiver and ordering medications, tests, or procedures. documented in this encounterMedina Hospital07-01-2022 Hospital Discharge instructions Patient Education 05/22/2022 [...] or a fever with an unknown cause. Koqp-gxe-jbsagds medicines will not shorten the duration of [...] your healthcare provider Feeling weak or dizzy 3705-2636 The protected-networks.com. [address] [place] [address], [place] [address]. All rights reserved. This information is not intended as a substitute for professional medical care. Always follow [facility] professional[facility] instructions. 05/22/2022 15:09:33 Fever Control (Adult) [...] where infectious diseases are common. Many people pick remover a cold or other virus while traveling. [...] you were there Where you stayed (hotel, [place] house, tent) What you ate and drank If you were bitten by insects or other bugs If you swam in freshwater If you had sex or got a tattoo or piercing while you were there Check the CDC to get more information about specific infectious diseases in the areas you have traveled. 7261-5955 The protected-networks.com. [address] [place] [address]. All rights reserved. This information is not intended as a substitute for professional medical care. Always follow [facility] professional's instructions. 05/22/2022 15:07:47 Weakness (Uncertain [...] red color) Loss of consciousness Severe headache 5036-9195 The protected-networks.com. [address] [place] [address]. All rights reserved. This information is not intended as a substitute for professional medical care. Always follow yourhealthcare professional's instructions. Follow Up Care 05/22/2022 12:44:39 With:LARY WHEAT DO Address: [address] [place] [address] [place] [address] [phone] When:2-4 days Comments:Schedule appointment for close follow-up.Drink plenty of fluids and rest.Use Tylenol or Advil for fever as needed.Continue current medications.Return to the ED if symptoms worsen. [facility] 07-01-2022 Emergency department Discharge summary Discharge Instructions Thank you for allowing [place] to assist you with your healthcare needs. [...] to the ED if symptoms worsen. Where: [address] [place] [address] [place] [address] [phone] Allergies NKA Medications Please ask your primary [...] or a fever with an unknown cause. Dlgy-ebl-stmneml medicines will not shorten the duration of [...] your healthcare provider Feeling weak or dizzy 4845-1357 The protected-networks.com. [address] [place] [address], [place] [address]. All rights reserved. This information is not [...] where infectious diseases are common. Many people pick remover a cold or other virus while traveling. [...] you were there Where you stayed (hotel, [place] house, tent) What you ate and drank If you were bitten by insects or other bugs If you swam in freshwater If you had sex or got a tattoo or piercing while you were there Check the CDC to get more information about specific infectious diseases in the areas you have traveled. 7074-2019 The protected-networks.com. [address] [place] [address], [place] [address]. All rights reserved. This information is not [...] red color) Loss of consciousness Severe headache 9299-8463 The protected-networks.com. [address] [place] [address]. All rights reserved. This information is not intended as a substitute for professional medical care. Always follow yourhealthcare professional's instructions. Additional Information VACCINATE! IT SAVES LIVES! Members of the community who have not yet received the COVID-19 vaccine and would like to receive it can visit one of [facility] vaccine clinics. There are many vaccine clinic locations within the [facility]. For locations and available times, please visit [email or web address]. It is important to note that some COVID mobile vaccine clinics are held outdoors and may be canceled in rainy orstormy conditions. To learn more about pediatric vaccinations (ages 5-11), we invite you to visit the [facility] webpage. https://www.[facility].org/pages/9512-Cieaf-Sxemzbwwmtb-Fcolchxpdn-Tkdpw-Saj stions.htmlTo learn more about the COVID-19 vaccine, we invite you to visit the [employer] website for a list of frequently asked questions. https://[employer]/assets/Ypljzkzp-xhm-Xgsnnevo/jgjmg-Mnwmfqc-Aknbnpkhar _Asked-Questions.pdf [employer] 2000 Patient Portal Access Instructions: Stay connected with your healthcare team and access your personal medical information anytime with the [employer] 2000 Patient Portal. If you would like a full copy of your medical records please contact the [facility] Medical Records Department Wednesday through Wednesday between 8a.m. and 4:30p.m. Please follow the directions below to access the portal: 1.Access the email account you provided upon registration to the hospital.2.Look for an invitation email from [facility].3.Open the email and access the invitation link: Accept Invitation to [employer]4.Fill in the required tirado to create your account. Sign into [email or web address] with your username and password that you [...] you will allow to register on the [facility] [employer] Patient Portal for access to your information. You can also access the [employer] Patient Portal on the [facility]. Simply click on Health Records under VuCOMP and then click on the Katie logo. [...] Call your local pharmacy or go to http://bit.Art of Click/3H2Rw2m to find one close to you.3.Make use of household items: Use cat litter or old coffee grounds to dispose medications if other options arenot available. Mix your drugs with these household products, seal them in an airtight container andthrow it into the garbage. Call [facility]: [phone] to be sure your drugs can be [...] aware that I should contact my doctor. 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 Where: [address] [place] [address] [place] [phone] Allergies NKA Medications Please ask your primary [...] or a fever with an unknown cause. Iwqf-tny-cufngzh medicines will not shorten the duration of [...] your healthcare provider Feeling weak or dizzy 7091-5890 The protected-networks.com. [address] [place] [address], [place] [address]. All rights reserved. This information is not [...] where infectious diseases are common. Many people pick remover a cold or other virus while traveling. [...] you were there Where you stayed (hotel, [place] house, tent) What you ate and drank If you were bitten by insects or other bugs If you swam in freshwater If you had sex or got a tattoo or piercing while you were there Check the CDC to get more information about specific infectious diseases in the areas you have traveled. 9123-2428 The protected-networks.com. [address] [place] [address], [place] [address]. All rights reserved. This information is not [...] red color) Loss of consciousness Severe headache 8370-8421 The protected-networks.com. [address] [place] [address]. All rights reserved. This information is not intended as a substitute for professional medical care. Always follow yourhealthcare professional's instructions. Additional Information VACCINATE! IT SAVES LIVES! Members of the community who have not yet received the COVID-19 vaccine and would like to receive it can visit one of [facility] vaccine clinics. There are many vaccine clinic locations within the [facility]. For locations and available times, please visit www.[email or web address]. It is important to note that some COVID mobile vaccine clinics are held outdoors and may be canceled in rainy orstormy conditions. To learn more about pediatric vaccinations (ages 5-11), we invite you to visit the [facility] webpage. https://www.[facility].org/pages/4621-Efdkh-Nzumvhrqvvm-Oarsirdnag-Fxypa-Ebb stions.htmlTo learn more about the COVID-19 vaccine, we invite you to visit the [employer] website for a list of frequently asked questions. https://[employer]/assets/Krxjmepa-ggd-Ljdfoqvo/fmytp-Oxsjeaa-Lthrkrgher _Asked-Questions.pdf [employer] 2000 Patient Portal Access Instructions: Stay connected with your healthcare team and access your personal medical information anytime with the [employer] Patient Portal. If you would like a full copy of your medical records please contact the [facility] Medical Records Department Wednesday through Wednesday between 8a.m. and 4:30p.m. Please follow the directions below to access the portal: 1.Access the email account you provided upon registration to the [facility].2.Look for an invitation email from [facility].3.Open the email and access the invitation link: Accept Invitation to [employer]4.Fill in the required tirado to create your account. Sign into www.[employer] with your username and password that you [...] you will allow to register on the [employer] Patient Portal for access to your information. You can also access the [employer] Patient Portal on the [facility]. Simply click on Health Records under VuCOMP and then click on the Katie logo. [...] Call your local pharmacy or go to http://bit.Art of Click/1E7Ja5d to find one close to you.3.Make use of household items: Use cat litter or old coffee grounds to dispose medications if other options arenot available. Mix your drugs with these household products, seal them in an airtight container andthrow it into the garbage. Call [facility]: [phone] to be sure your drugs can be [...] aware that I should contact my doctor. 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 Where: [address] [place] [address] [place] [phone] Allergies NKA Medications Please ask your primary [...] or a fever with an unknown cause. Zsim-pwu-tenmwbd medicines will not shorten the duration of [...] your healthcare provider Feeling weak or dizzy 5580-1190 The protected-networks.com. [address] [place] [address], [place] [address]. All rights reserved. This information is not [...] where infectious diseases are common. Many people pick remover a cold or other virus while traveling. [...] you were there Where you stayed (hotel, [place] house, tent) What you ate and drank If you were bitten by insects or other bugs If you swam in freshwater If you had sex or got a tattoo or piercing while you were there Check the CDC to get more information about specific infectious diseases in the areas you have traveled. 0141-4528 The protected-networks.com. [address] [place] [address], [place] [address]. All rights reserved. This information is not [...] red color) Loss of consciousness Severe headache 2646-9718 The protected-networks.com. [address] [place] [address]. All rights reserved. This information is not intended as a substitute for professional medical care. Always follow yourhealthcare professional's instructions. Additional Information VACCINATE! IT SAVES LIVES! Members of the community who have not yet received the COVID-19 vaccine and would like to receive it can visit one of [facility] vaccine clinics. There are many vaccine clinic locations within the [facility]. For locations and available times, please visit www.[email or web address]. It is important to note that some COVID mobile vaccine clinics are held outdoors and may be canceled in rainy orstormy conditions. To learn more about pediatric vaccinations (ages 5-11), we invite you to visit the [facility] webpage. https://www.[facility].org/pages/9941-Hswuh-Yuygvgznbkk-Kasthgydwf-Qcyfq-Hsl stions.htmlTo learn more about the COVID-19 vaccine, we invite you to visit the [employer] website for a list of frequently asked questions. https://[employer]/assets/Xxjdjkor-xgf-Txkwvfdx/egttl-Fukrbha-Ulgdjzrdgr _Asked-Questions.pdf [employer] 2000 Patient Portal Access Instructions: Stay connected with your healthcare team and access your personal medical information anytime with the [employer] Patient Portal. If you would like a full copy of your medical records please contact the [facility] Medical Records Department Wednesday through Wednesday between 8a.m. and 4:30p.m. Please follow the directions below to access the portal: 1.Access the email account you provided upon registration to the [facility].2.Look for an invitation email from [facility].3.Open the email and access the invitation link: Accept Invitation to [facility] [employer]4.Fill in the required tirado to create your account. Sign into www.[employer] with your username and password that you [...] you will allow to register on the [employer] Patient Portal for access to your information. You can also access the [employer] Patient Portal on the [facility]. Simply click on Health Records under [employer]COMP and then click on the Katie logo. [...] Call your local pharmacy or go to http://bit.ly/8M2Ks8z to find one close to you.3.Make use of household items: Use cat litter or old coffee grounds to dispose medications if other options arenot available. Mix your drugs with these household products, seal them in an airtight container andthrow it into the garbage. Call [facility]: [phone] to be sure your drugs can be [...] aware that I should contact my doctor. 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 Signature: Date/Time: Relationship to Patient: Witness Name/Signature: Date/Time: [facility]powhfxj36-52-1888 HCoV 229E RNA ENRIQUE+non-probe Ql (Nph)Not Detected *NA* (05/22/22 2:10 PM) Auto Viro/Sero [id number] Note ORIGINAL EXAMINATION: ONE XRAY VIEW OF [...] Sign Date: 05/22/2022 1:15:33 PM Ordering Provider: [facility]07-01-2022 Note ORIGINAL EXAMINATION: ONE XRAY VIEW OF [...] Sign Date: 05/22/2022 1:15:33 PM Ordering Provider: [facility]06-10-2022 Miscellaneous Notes* Telephone Encounter - Humaira Wetzel - 05/01/2022 11:14 AM EDT Mr. Pena, of Ms. Caro was called and he scheduled an appointment on 06/04/[address] Gusman at the [facility] for f2f appointment. Aware the Rx is [...] 05/01/2022 8:21 AM EDT Patient [facility] visit [facility] on 10/30/2021; Last f2f on 07/10/2021. [...] and advise. Humaira Wetzel documented in this encounterMedina Hospital06-05-2022 Hospital Discharge instructions Patient Education 04/25/2022 [...] action. To control pain, take prescription or urya-wsq-ocbuvbi medicines as directed. Unless told not to, [...] Severe headache, neck pain, drowsiness, or confusion 0800-2500 The protected-networks.com. [address] [place] [address]. All rights reserved. This information is not intended as a substitute for professional medical care. Always follow yourhealthcare professional's instructions. Follow Up Care 04/25/2022 23:32:02 With:Go to emergency room if symptoms worsen Address:Unknown When:2-4 days With:LARY WHEAT DO Address: [address] [place] [address] [place], [place] [id number] [phone] When:2-4 days [facility] 03-17-2022 Miscellaneous Notes* Telephone Encounter - Pina Euceda - 02/05/2022 8:10 AM EDT Patient Song Chavez calling in stating him and the patient have questions about the medication Baclofen (Lioresal) that was prescribed. Please advise documented in this encounterMedina Hospital02-03-2022 Hospital Discharge instructions Patient Education 12/25/2021 14:06:01 Heart Failure, Diagnosis, Uakv-bx-Ojos Heart Failure, Diagnosis Heart failure means that [...] 08/17/2009 Document Revised: 01/26/2020 Document Reviewed: 01/26/2020 [employer] Patient Education 2020 [employer] Follow Up Care 12/24/2021 01:51:28 With:JAC CHRISTENSEN MD Address: [address] [facility] [address] [facility] [place] [address]- [phone] When:12/30/2021 10:15:00 Comments:THIS APPOINTMENT WILL BE WITH REI ALFONSO CNP [facility] 02-02-2022 Evaluation + Plan noteExtracted [...] OV Appointment Date:2022 11:00:00 AM Scheduled [facility]:CV OV Appointment Date:02/12/2022 11:00:00 AM Scheduled Provider:LARY WHEAT DO Location:[facility] Appointment Type:PC OV Future Scheduled Tests Laboratory* Complete Blood Count 12/09/21 * Complete Metabolic Panel 12/09/21 [facility] 01-14-2022 Hospital Discharge instructions Patient Education [...] Slowly return to your usual activities. Take pkzt-wsj-ktjjxos and prescription medicines only as told by [...] 08/03/2002 Document Revised: 04/10/2019 Document Reviewed: 04/10/2019 [employer] Patient Education 2020 [employer] Follow Up Care 11/22/2021 03:48:42 With:LARY WHEAT DO Address: [address] [place] [address] [place] [address]- [phone] When:1-2 days Comments:PLEASE CALL THIS OFFICE TO SCHEDULE A HOSPITAL FOLLOW UP APPOINTMENT. With:HARISH GIFFORD APRN-RANGER AIDE Address: [address] [place] [address] [address] [place] [address]- [phone] When:12/12/2021 Comments:This is your heart failure appointment. An appointment with your hat braider will be made at this visit. With:[facility] Address: [address] [place] [phone]- When: Unknown Comments:The Cardiac Rehab department will call you in 4-5 weeks to schedule you for phase 2. We left you a brochure with information about cardiac rehab. If you have any questions please call [phone]. With:JAC CHRISTENSEN MD Address: [address] [place] [address] [address] [place] [address]- [phone] When:2022 11:00:00 [facility] 01-06-2022 HCoV 229E RNA ENRIQUE+non-probe Ql (Nph)Not Detected *NA* (11/27/21 12:42 PM) Auto Viro/Sero [id number] Evaluation + Plan noteExtracted from: Title:Critical care [...] 1 L IV hydration, Rocephin, levofloxacin at [facility]. We will start patient on broad-spectrum antibiotic [...] who reports that the patient went to [place] starting on 11/08 and began to develop [...] levofloxacin and ceftriaxone, which were continued from [facility] ED. Can de-escalate to levofloxacin Order brain natriuretic peptide Empiric dose of IV furosemide 40 mg Repeat Covid test negative We will follow up blood and respiratory culture data GI prophylaxis with famotidine DVT prophylaxis with Lovenox Full code 35 minutes of critical care time Future Appointments Appointment Date:02/12/2022 11:00:00 AM Scheduled Provider:LARY WHEAT DO Location:[facility] Appointment Type:PC OV Diagnostic Tests Pending * Blood Culture (bacterial) 11/22/21 * Blood Culture (bacterial) 11/22/21 [facility] 04-02-2015 History of Past illness Narrative* Problem Noted Date Resolved Date Personal history of colonic polyps 02/21/2015 02/21/2015 documented as of this encounter (statuses as of 03/16/2022) [address]2015 History of Past illness Narrative* Problem Noted Date Resolved Date Personal history of colonic polyps 02/21/2015 02/21/2015 documented as of this encounter (statuses as of 05/01/2022) [address]2015 History of Past illness Narrative* Problem Noted Date Resolved Date Personal history of colonic polyps 02/21/2015 02/21/2015 documented as of this encounter (statuses as of 06/04/2022) [address]2015 History of Past illness Narrative* Problem Noted Date Resolved Date Personal history of colonic polyps 02/21/2015 02/21/2015 documented as of this encounter (statuses as of 06/25/2022) [address]2015 History of Past illness Narrative* Problem Noted Date Resolved Date Personal history of colonic polyps 02/21/2015 02/21/2015 documented as of this encounter (statuses as of 07/02/2022) [address]2015 History of Past illness Narrative* Problem Noted Date Resolved Date Personal history of colonic polyps 02/21/2015 02/21/2015 documented as of this encounter (statuses as of 08/10/2022) [address] History of Past illness Narrative* Problem Noted Date Resolved Date Personal history of colonic polyps 02/21/2015 02/21/2015 documented as of this encounter (statuses as of 10/12/2022) [address] History of Past illness Narrative* Problem Noted Date Resolved Date Personal history of colonic polyps 02/21/2015 02/21/2015 documented as of this encounter (statuses as of 11/05/2022) [address]2015 History of Past illness Narrative* Problem Noted Date Resolved Date Personal history of colonic polyps 02/21/2015 02/21/2015 documented as of this encounter (statuses as of 05/14/2023) [address] History of Past illness Narrative* Problem Noted Date Resolved Date Personal history of colonic polyps 02/21/2015 02/21/2015 documented as of this encounter (statuses as of 05/18/2023) [address] History of Past illness Narrative* Problem Noted Date Diagnosed Date Resolved Date Personal history of colonic polyps 02/21/2015 02/21/2015 documented as of this encounter (statuses as of 07/01/2023) [address] History of Past illness Narrative* Problem Noted Date Diagnosed Date Resolved Date Personal history of colonic polyps 02/21/2015 02/21/2015 documented as of this encounter (statuses as of 07/21/2023) [address] History of Past illness Narrative* Problem Noted Date Diagnosed Date Resolved Date Personal history of colonic polyps 02/21/2015 02/21/2015 documented as of this encounter (statuses as of 09/22/2023) [address] History of Past illness Narrative* Problem Noted Date Diagnosed Date Resolved Date Personal history of colonic polyps 02/21/2015 02/21/2015 documented as of this encounter (statuses as of 09/22/2023) [address] History of Past illness Narrative* Problem Noted Date Diagnosed Date Resolved Date Personal history of colonic polyps 02/21/2015 02/21/2015 documented as of this encounter (statuses as of 10/22/2023) [address] History of Past illness Narrative* Problem Noted Date Diagnosed Date Resolved Date Personal history of colonic polyps 02/21/2015 02/21/2015 documented as of this encounter (statuses as of 10/23/2023) [facility] Tal[facility] October 01, 2023 2:08pm Note Date/Time October 01, 2023 2:08pm [facility] Medical Records Department [address] [place] [address] Counseling Note - Pharmacy 10/01/23 1408 MR#: [id number] Acct: [id number] Name: MANSI CARO Rep #:[id number] : 1955 68 From: Talat Cameron PCP: Dr. Adrienne Byers, DO Status:ADM IN Y Location: [address] Med Reconciliation Pharmacy Service has performed discharge medication reconciliation for this patient. The patient's discharge medication list was reviewed for discrepancies and discrepancies were resolved. 10/01/23 1408 <Electronically signed by Talat knight> Date _ Talat Ortizigner Signature (if applicable): Date CC: ~ Signed [facility] Work Phone: Consult note Author Carlotta Singletary [facility] October 12, 2023 11:48am Note Date/Time October 12, 2023 11:40am [facility] Medical Records Department [address] [place] [address] Counseling Note - Pharmacy 10/12/23 1139 MR#: [id number] Acct: [id number] Name: MANSI CARO Rep #:[id number] : 1955 68 From: Carlotta Singletary PCP: Dr. Adrienne Byers, DO Status:ADM ANGELIA Y Location: [place] [address] Pharmacy [place] Med Reconciliation Pharmacy Service has performed discharge [...] Signature (if applicable): Date CC: ~ Signed [facility] Work Phone: Consult note Author Talat Cameron [facility] February 29, 2024 11:45am Note Date/Time February 29, 2024 11:4 5am [facility] Medical Records Department [facility] [place] [address] [place] [address] Counseling Note - Pharmacy 02/29/24 1145 MR#: [id number] Acct: [id number] Name: MANSI CARO Rep #:[id number] : 1955 69 From: Taalt Cameron PCP: Dr. Adrienne Byers, DO Status:ADM IN Y Location: MS3 [id number] Pharmacy [place] Med Reconciliation Pharmacy Service has performed discharge [...] Signature (if applicable): Date CC: ~ Signed [facility] Work Phone: Consult note Author Carlotta Singletary [facility] Note Date/Time June 11, 2025 3:38 pm [facility] Medical Records Department [address] [place] [address] Counseling Note - Pharmacy 06/11/25 1506 MR#: [id number] Acct: [id number] Name: MANSI CARO Rep #:[id number] : 1955 70 From: Carlotta Singletary PCP: Marci Lopez DO Status:ADM I N Y Location: [place] [address] Pharmacy [facility] Counseling Pharmacy Service has performed discharge [...] mg) PO DAILY #30 tabs 06/11/25 06/11/25 5866 <Electronically signed by Carlotta Singletary> Date _ Carlotta Gallo Signature (if applicable): Date CC: ~ Signed [facility] Work Phone: Consult note Author Carlotta Singletary [facility] Note Date/Time July 04, 2025 11 :43am [facility] Medical Records Department [address] [place] [address] Counseling Note - Pharmacy 07/04/25 1006 MR#: [id number] Acct: [id number] Name: MANSI CARO Rep #:[id number] : 1955 70 From: Carlotta Singletary PCP: Marci Lopez DO Status:ADM I NO Y Location[place] [facility] [id number] [place]acy [place] Med Reconciliation Pharmacy Service has performed discharge [...] Signature (if applicable): Date CC: ~ Signed [facility] Work Phone: Discharge summary Author Romeo Padron [facility] Note Date/Time April 19, 2025 11:06 am [facility] Medical Records Department [address] [facility] [place] [address] Emergency Department Summary 04/19/25 MR#: [id number] Acct: [id number] Name: MANSI CARO Rep #:[id number] : 1955 70 From: Romeo Padron DO PCP: Marci Lopez DO Status:REG E R Location: ED ADDENDUM by Dr. Bossman Sanders DO on 04/19/25 at 1106 Patient care turned over to [place] awaiting evaluation by geriatric social work professor for placement to half-way facility. Patient was evaluated by geriatric social work professor and it was recommended [...] infection she was brought in for evaluation [facility] Medical History Ischemic colitis History of [...] (patent foramen ovale) Cardiac resynchronization therapy defibrillator (ROTARY DRILL OPERATOR-D) in place Myocarditis Hyperlipidemia Hypertension Home Medications [...] 0.125 mg tablet 0.125 mg PO TID AR N dyspepsia #90 03/05/25 Unknown Rx tabs [...] to go home and is agreeable to shelter/rehab placement. As it is a weekday and morning hours the patient will be evaluated by physical therapy/Occupational Therapy in the ER and social work will be consulted as well. There is hopes that the patient will be able to be sent directly from the ER to a shelter/rehab center. The patient and family were informed [...] 78.3 H Lymph % (Auto) 10.4 L Phelps % (Auto) 8.2 Eos % (Auto) 2.5 [...] Clarity Clear Urine pH 6.5 Ur Specific [place] 1.010 Urine Protein 15 H Urine Glucose (UA) 100 H Urine Ketones Negative Urine Occult Blood Negative Urine Nitrite Negative Urine Bilirubin Negative Urine Urobilinogen Normal Ur Leukocyte Esterase Negative Urine RBC 0 SEEN Urine WBC 0 SEEN Ur Squamous Epith Cells 0 SEEN Urine Bacteria 0 SEEN Urine Mucus 0 SEEN Management Discussion w/another healthcare provider: Hospitalist and paste worker/Case management Discharge Plan Triage Chief Complaint: [...] DO [Primary Care Provider] - Print Language: Bhutanese What to do if you have Problems For any increased pain, shortness of breath, bleeding, nausea or vomiting, chestpain, or any unexpected problems, contact your Primary Care Provider. Call [facility] ([phone]) or report to the closest Emergency Room. Call 911 if necessary. 04/19/25 0633 <Electronically signed by Romeo Padron DO> Cosigner Signature (if applicable): CC: Marci Lopez DO ~ Signed [facility] Work Phone: Discharge summary Author Maximo Orosco [facility] Note Date/Time April 20, 2025 2:54p m [facility] Medical Records Department [address] [place] [address] Transfer to [facility] MR#: [id number] Acct: [id number] Name: MANSI CARO Rep #:[id number] : 1955 70 From: Maximo levin DO PCP: John,Marci L. DO Status:ADM I NO Certification of patient admission REQUIRED AT TIME OF ADMISSION. I CERTIFY THAT POST-HOSPITAL ECF SERVICES ARE REQUIRED TO BE GIVEN ON AN IN-PATIENT BASIS BECAUSE OF THE ABOVE NAMED PATIENT'S NEED FOR PENITENTIARY CARE ON A CONTINUING BASIS FOR THE CONDITION(S) FOR WHICH HE/SHE WAS RECEIVING IN-PATIENT HOSPITAL SERVICES PRIOR TO HIS/HER TRANSFER TO THE ECF. 04/20/25 1457<Electronically signed by Maximo Orosco DO> Diet Diet [...] is a 70-year-old female who presented to [facility] ED on 04/19/2025 with worsening weakness. Short [...] in before D/C Order can be placed): Long Term Facility 04/20/25 0900 <Electronically signed by Maximo Orosco DO> Cosigner Signature (if applicable): CC: Marci Lopez DO ~ [facility] Work Phone: Discharge summary Author [facility] Note Date/Time April 20, 2025 2:55p [facility] Medical Records Department [address] [place] [address] Discharge Summary 04/20/25 1449 MR#: [id number] Acct: [id number] Name: MANSI CARO Rep #:[id number] : 1955 70 From: Maximo levin DO PCP: Marci Lopez DO Status:ADM I NO Location[place] [facility] [id number] Providers Date of Admission: 04/19/25 Date of [...] is a 70-year-old female who presented to [facility] ED on 04/19/2025 with worsening weakness. Short [...] in before D/C Order can be placed): Long Term Facility Charges/Coding Visit Charges Inpatient E&M: 17396 Disch Hosp >30min 04/20/25 1455 <Electronically signed by Maximo Orosco DO> Cosigner Signature (if applicable): CC: Dr. Maximo Orosco DO; Marci Lopez DO~ Signed [facility] Work Phone: Discharge summary Author Camacho Aguilar [facility] Note Date/Time July 04, 2025 9: 47am [facility] Medical Records Department [address] [place] [address] Transfer to [facility] MR#: [id number] Acct: [id number] Name: MANSI CARO Rep #:[id number] : 1955 70 From: Camacho renner MD PCP: Marci Lopez DO Status:ADM I NO Certification of patient admission REQUIRED AT TIME OF ADMISSION. I CERTIFY THAT POST-HOSPITAL [facility] SERVICES ARE REQUIRED TO BE GIVEN ON AN IN-PATIENT BASIS BECAUSE OF THE ABOVE NAMED PATIENT'S NEED FOR PENITENTIARY CARE ON A CONTINUING BASIS FOR THE CONDITION(S) FOR WHICH HE/SHE WAS RECEIVING IN-PATIENT HOSPITAL SERVICES PRIOR TO HIS/HER TRANSFER TO THE [facility]. 07/04/25 0947<Electronically signed by Camacho Aguilar MD> [...] w/ meals as ordered - consistency per SUPERVISOR WHITE SUGAR Will provide fortified foods at meals as [...] in before D/C Order can be placed): Long Term Facility 07/04/25 09 <Electronically signed by Camacho Aguilar MD> Cosigner Signature (if applicable): CC: Dr. Jose Royal DO; Marci Lopez DO ~ [facility] Work Phone: Evaluation + Plan note Future Appointments Appointment Date:10/08/2021 02:30:00 PM Scheduled Provider: Location:[facility] Appointment Type:MA Mammogram Screening Bilateral w/ Yoav Appointment Date:10/31/2021 02:00:00 PM Scheduled Provider:LARY WHEAT DO Location:[facility] Appointment Type:PC OV Future Scheduled Tests Radiology* MA Mammo Screening Bilateral w/ Yoav 10/08/21 [facility] Evaluation + Plan note Future Appointments Appointment Date:10/31/2021 02:00:00 PM Scheduled Provider:LARY WHEAT DO Location:[facility] Appointment Type: OV [facility] Evaluation + Plan note Future Appointments Appointment Date:02/12/2022 11:00:00 AM Scheduled Provider:LARY WHEAT DO Location:[facility] Appointment Type: OV [facility] Evaluation + Plan note Future Appointments Appointment Date:2022 11:00:00 AM Scheduled Provider: Location:[facility] Appointment Type:CV OV Appointment Date:02/12/2022 11:00:00 AM Scheduled Provider:LARY WHEAT DO Location:[facility] Appointment Type:[facility] Evaluation + Plan note Future Appointments Appointment Date:12/30/2021 10:15:00 AM Scheduled Provider:REI ALFONSO Location:[facility] Appointment Type:CV OV Appointment Date:2022 11:00:00 AM Scheduled Provider: Location:[facility] Appointment Type:CV OV Appointment Date:02/12/2022 11:00:00 AM Scheduled Provider:LARY WHEAT DO Location:[facility] Appointment Type:PC OV Future Scheduled Tests Laboratory* Complete Blood Count 12/09/21 * Complete Metabolic Panel 12/09/21 [facility] Evaluation + Plan note Future Appointments Appointment Date:2022 11:00:00 AM Scheduled Provider: Location:[facility] Appointment Type:CV OV Appointment Date:02/12/2022 11:00:00 AM Scheduled Provider:LARY WHEAT DO Location:[facility] Appointment Type:PC OV Appointment Date:02/17/2022 03:45:00 PM Scheduled Provider: Location:[facility] Appointment Type:CV OV Appointment Date:03/30/2022 02:00:00 PM Scheduled Provider: Location:[facility] Appointment Type:CV Procedure - Echo (Adult) Future Scheduled Tests Laboratory* Complete Blood Count 12/09/21 * Complete Metabolic Panel 12/09/21 [facility] evaluation + Plan note Future Appointments Appointment Date:02/12/2022 11:00:00 AM Scheduled Provider:LARY WHEAT DO Location:[facility] Appointment Type:PC OV Appointment Date:02/17/2022 03:45:00 PM Scheduled Provider: Location:[facility] Appointment Type:CV OV Appointment Date:03/30/2022 02:00:00 PM Scheduled Provider: Location:[facility] Appointment Type:CV Procedure - Echo (Adult) [facility] evaluation + Plan note Future Appointments Appointment Date:03/20/2022 08:45:00 AM Scheduled Provider: Location:[facility] Appointment Type:CV OV Appointment Date:03/30/2022 02:00:00 PM Scheduled Provider: Location:[facility] Appointment Type:CV Procedure - Echo (Adult) Appointment Date:05/15/2022 08:00:00 AM Scheduled Provider:LARY WHEAT DO Location:[facility] Appointment Type:PC OV Future Scheduled Tests Laboratory* Basic Metabolic Panel 03/10/22 * A1C Hemoglobin 05/15/22 * Lipid Profile 03/10/22 * Vitamin D Level 05/15/22 * Complete Metabolic Panel 05/15/22 * N-Terminal proBNP 03/10/22 [facility] evaluation + Plan note Future Appointments Appointment Date:03/09/2022 03:45:00 PM Scheduled Provider: Location:[facility] Appointment Type:CV OV Appointment Date:03/20/2022 08:45:00 AM Scheduled Provider: Location:[facility] Appointment Type:CV OV Appointment Date:03/30/2022 02:00:00 PM Scheduled Provider: Location:[facility] Appointment Type:CV Procedure - Echo (Adult) Appointment Date:05/15/2022 08:00:00 AM Scheduled Provider:LARY WHEAT DO Location:[facility] Appointment Type:PC OV Future Scheduled Tests Laboratory* Basic Metabolic Panel 03/10/22 * A1C Hemoglobin 05/15/22 * Lipid Profile 03/10/22 * Vitamin D Level 05/15/22 * Complete Metabolic Panel 05/15/22 * N-Terminal proBNP 03/10/22 [facility] Evaluation + Plan note Future Appointments Appointment Date:03/09/2022 03:45:00 PM Scheduled Provider: Location:[facility] Appointment Type:CV OV Appointment Date:03/20/2022 08:45:00 AM Scheduled Provider: Location:[facility] Appointment Type:CV OV Appointment Date:03/30/2022 02:00:00 PM Scheduled Provider: Location:[facility] Appointment Type:CV Procedure - Echo (Adult) Appointment Date:05/15/2022 08:00:00 AM Scheduled Provider:LARY WHEAT DO Location:[facility] Appointment Type:PC OV Future Scheduled Tests Laboratory* A1C Hemoglobin 05/15/22 * Vitamin D Level 05/15/22 * Complete Metabolic Panel 05/15/22 [facility] Evaluation + Plan note Future Appointments Appointment Date:03/20/2022 08:45:00 AM Scheduled Provider: Location:[facility] Appointment Type:CV OV Appointment Date:03/30/2022 02:00:00 PM Scheduled Provider: Location:[facility] Appointment Type:CV Procedure - Echo (Adult) Appointment Date:05/15/2022 08:00:00 AM Scheduled Provider:LARY WHEAT DO Location:[facility] Appointment Type:PC OV Future Scheduled Tests Laboratory* A1C Hemoglobin 6 * Vitamin D Level 05/15/22 * Complete Metabolic Panel 05/15/22 [facility] Evaluation + Plan note Future Appointments Appointment Date:03/30/2022 02:00:00 PM Scheduled Provider: Location:[facility] Appointment Type:CV Procedure - Echo (Adult) Appointment Date:05/01/2022 08:45:00 AM Scheduled Provider: Location:[facility] Appointment Type:CV OV Appointment Date:05/15/2022 08:00:00 AM Scheduled Provider:LARY WHEAT DO Location:[facility] Appointment Type:PC OV Diagnostic Tests Pending * Ferritin 03/20/22 * Transferrin 03/20/22 Future Scheduled Tests Laboratory* A1C Hemoglobin 05/15/22 * Cortisol Drawn in AM 03/20/22 * Vitamin D Level 05/15/22 * Complete Metabolic Panel 05/15/22 * N-Terminal proBNP 04/10/22 Radiology* MRI Cardiac Morph W+W/O Cont Flow/Veloc 03/20/22 [facility] Evaluation + Plan note Future Appointments Appointment Date:03/30/2022 02:00:00 PM Scheduled Provider: Location:[facility] Appointment Type:CV Procedure - Echo (Adult) Appointment Date:04/21/2022 04:30:00 PM Scheduled Provider: Location:[facility] Appointment Type:MRI Cardiac Morph W+W/O Cont Flow/Veloc Appointment Date:05/01/2022 08:45:00 AM Scheduled Provider: Location:[facility] Appointment Type:CV OV Appointment Date:05/15/2022 08:00:00 AM Scheduled Provider:LARY WHEAT DO Location:[facility] Appointment Type:PC OV Future Scheduled Tests Laboratory* A1C Hemoglobin 05/15/22 * Vitamin D Level 05/15/22 * Complete Metabolic Panel 05/15/22 * N-Terminal proBNP 04/10/22 Radiology* MRI Cardiac Morph W+W/O Cont Flow/Veloc 04/21/22 [facility] Evaluation + Plan note Future Appointments Appointment Date:04/03/2022 03:00:00 PM Scheduled Provider: Location:[facility] Appointment Type:INF Infusion: Venofer (1 Hour) Appointment Date:04/21/2022 04:30:00 PM Scheduled Provider: Location:[facility] Appointment Type:MRI Cardiac Morph W+W/O Cont Flow/Veloc Appointment Date:05/01/2022 08:45:00 AM Scheduled Provider: Location:[facility] Appointment Type:CV OV Appointment Date:05/15/2022 08:00:00 AM Scheduled Provider:LARY WHEAT DO Location:[facility] Appointment Type:PC OV Future Scheduled Tests Laboratory* A1C Hemoglobin 05/15/22 * Vitamin D Level 05/15/22 * Complete Metabolic Panel 05/15/22 * N-Terminal proBNP 04/10/22 Radiology* MRI Cardiac Morph W+W/O Cont Flow/Veloc 04/21/22 [facility] Evaluation + Plan note Future Appointments Appointment Date:04/21/2022 04:30:00 PM Scheduled Provider: Location:[facility] Appointment Type:MRI Cardiac Morph W+W/O Cont Flow/Veloc Appointment Date:05/01/2022 08:45:00 AM Scheduled Provider: Location:[facility] Appointment Type:CV OV Appointment Date:05/15/2022 08:00:00 AM Scheduled Provider:LARY WHEAT DO Location:[facility] Appointment Type:PC OV Future Scheduled Tests Laboratory* A1C Hemoglobin 05/15/22 * Vitamin D Level 05/15/22 * Complete Metabolic Panel 05/15/22 * N-Terminal proBNP 04/10/22 Radiology* MRI Cardiac Morph W+W/O Cont Flow/Veloc 04/21/22 [facility] Evaluation + Plan note Future Appointments Appointment Date:05/01/2022 08:45:00 AM Scheduled Provider: Location:[facility] Appointment Type:CV OV Appointment Date:05/15/2022 08:00:00 AM Scheduled Provider:LARY WHEAT DO Location:[facility] Appointment Type:PC OV Future Scheduled Tests Laboratory* A1C Hemoglobin 05/15/22 * Vitamin D Level 05/15/22 * Complete Metabolic Panel 05/15/22 [facility] Evaluation + Plan note Future Appointments Appointment Date:05/08/2022 12:45:00 PM Scheduled Provider: Location:[facility] Appointment Type:CV ENERGY ADVISOR Appointment Date:05/15/2022 08:00:00 AM Scheduled Provider:LARY WHEAT DO Location:[facility] Appointment Type:PC OV Appointment Date:06/09/2022 11:30:00 AM Scheduled Provider: Location:[facility] Appointment Type:CV OV Appointment Date:06/17/2022 02:30:00 PM Scheduled Provider: Location:[facility] Appointment Type:CV ENERGY ADVISOR Future Scheduled Tests Laboratory* A1C Hemoglobin 05/15/22 * Vitamin D Level 05/15/22 * Complete Metabolic Panel 05/15/22 * N-Terminal proBNP 08/01/22 [facility] Evaluation + Plan note Future Appointments Appointment Date:05/29/2022 03:00:00 PM Scheduled Provider: Location:[facility] Appointment Type:CV OV Incision Check Appointment Date:06/09/2022 11:30:00 AM Scheduled Provider[facility] Appoint[facility] Type:CV OV Appointment Date:06/09/2022 01:30:00 PM Scheduled Provider:LARY WHEAT DO Location:[facility] [facility] Appointment Type:PC OV Appointment Date:06/17/2022 02:30:00 PM Scheduled Provider: Location:[facility] Appointment Type:CV ENERGY ADVISOR Appointment Date:09/01/2022 03:30:00 PM Scheduled Provider: Location:[facility] Appointment Type:CV Office Procedure ICD Appointment Date:12/01/2022 08:00:00 AM Scheduled Provider: Location:[facility] Appointment Type:CV Remote Procedure HM Diagnostic Tests Pending * Urine Culture 05/22/22 Future Scheduled Tests Laboratory* A1C Hemoglobin 05/15/22 * Vitamin D Level 05/15/22 * Complete Metabolic Panel 05/15/22 * N-Terminal proBNP 08/01/22 [facility] Evaluation + Plan note Future Appointments Appointment Date:06/09/2022 11:30:00 AM Scheduled [facility]: [facility]oint[facility] Type:CV OV Appointment Date:06/09/2022 01:30:00 PM Scheduled Provider:LARY WHEAT DO Location:[facility] Appointment Type:PC OV Appointment Date:09/01/2022 03:30:00 PM Scheduled Provider: Location:[facility] Appointment Type:CV Office Procedure ICD Appointment Date:12/01/2022 08:00:00 AM Scheduled Provider: Location:[facility] Appointment Type:CV Remote Procedure HM Future Scheduled Tests Laboratory* Basic Metabolic Panel 06/01/22 * N-Terminal proBNP 06/01/22 * N-Terminal proBNP 08/01/22 [facility] CoreFlowaluation + Plan note Future Appointments Appointment Date:09/01/2022 03:30:00 PM Scheduled Provider: Location:[facility] Appointment Type:CV Office Procedure ICD Appointment Date:09/08/2022 02:00:00 PM Scheduled Provider:LARY WHEAT DO Location[facility] Appointment Type:PC OV Appointment Date:12/01/2022 08:00:00 AM Scheduled Provider: Location:[facility] Appointment Type:CV Remote Procedure HM Future Scheduled Tests Laboratory* Lipid Profile 12/10/22 * N-Terminal proBNP 08/01/22 * N-Terminal proBNP 09/09/22 * N-Terminal proBNP 12/10/22 [facility] evaluation + Plan note Future Appointments Appointment Date:07/23/2022 03:00:00 PM Scheduled Provider:LARY WHEAT DO Location:[facility] Appointment Type:PC OV Appointment Date:09/01/2022 03:30:00 PM Scheduled Provider: Location:[facility] Appointment Type:CV Office Procedure ICD Appointment Date:09/08/2022 02:00:00 PM Scheduled Provider:LARY WHEAT DO Location:[facility] Appointment Type:PC OV Appointment Date:12/01/2022 [...] N-Terminal proBNP 09/09/22 * N-Terminal proBNP 12/10/22 [facility] Evaluation + Plan note Future Appointments [...] N-Terminal proBNP 09/09/22 * N-Terminal proBNP 12/10/22 [facility] Evaluation + Plan note Future Appointments [...] N-Terminal proBNP 09/09/22 * N-Terminal proBNP 12/10/22 [facility] Evaluation + Plan note Future Appointments Appointment Date:12/01/2022 08:00:00 AM Scheduled Provider: Location:[facility] Appointment Type:CV Remote Procedure HM Appointment Date:12/08/2022 02:45:00 PM Scheduled Provider:LARY WHEAT DO Location:[facility] Appointment Type:PC OV Future Scheduled Tests [...] 12/10/22 Radiology* CT Thorax w/o Contrast 09/08/22 [facility] Evaluation + Plan note Future Appointments Appointment Date:12/01/2022 08:00:00 AM Scheduled Provider: Location:[facility] Appointment Type:CV Remote Procedure Appointment Date:12/08/2022 02:45:00 PM Scheduled Provider:LARY WHEAT DO Location:[facility] Appointment Type:PC OV Future Scheduled [...] N-Terminal proBNP 12/09/22 * N-Terminal proBNP 12/10/22 [facility] Evaluation + Plan note Future Appointments Appointment Date:12/01/2022 08:00:00 AM Scheduled Provider: Location:[facility] Appointment Type:CV Remote Procedure Appointment Date:12/08/2022 02:45:00 PM Scheduled Provider:LARY WHEAT DO Location:[facility] Appointment Type:PC OV Future Scheduled [...] N-Terminal proBNP 01/28/23 * N-Terminal proBNP 12/10/22 [facility] Evaluation + Plan note Future Appointments Appointment Date:11/30/2022 03:30:00 PM Scheduled Provider:ARDIENNE BYERS DO Location:[facility] Appointment Type:PC OV Appointment Date:12/01/2022 08:00:00 AM Scheduled Provider: Location:[facility] Appointment Type:CV Remote Procedure HM Appointment Date:12/08/2022 02:45:00 PM Scheduled Provider:LARY WHEAT DO Location:[facility] Appointment Type:PC OV Diagnostic Tests [...] N-Terminal proBNP 01/28/23 * N-Terminal proBNP 12/10/22 [facility] Evaluation + Plan note Future Appointments Appointment Date:12/08/2022 03:00:00 PM Scheduled Provider:LARY WHEAT DO Location:[facility] Appointment Type:PC OV Appointment Date:03/12/2023 [...] N-Terminal proBNP 01/28/23 * N-Terminal proBNP 12/10/22 [facility] Evaluation + Plan note Future Appointments Appointment Date:03/12/2023 11:45:00 AM Scheduled Provider: Location:[facility] Appointment Type:CV Remote Procedure HM Appointment Date:03/23/2023 02:30:00 PM Scheduled Provider:LARY WHEAT DO Location:[facility] Appointment Type:PC OV Future Scheduled [...] N-Terminal proBNP 12/09/22 * N-Terminal proBNP 01/28/23 [facility] Evaluation + Plan note Future Appointments Appointment Date:03/12/2023 11:45:00 AM Scheduled Provider: Location:[facility] Appointment Type:CV Remote Procedure HM Appointment Date:03/24/2023 02:30:00 PM Scheduled Provider:ADRIENNE BYERS DO [facility] Type:PC OV Future Scheduled [...] N-Terminal proBNP 12/09/22 * N-Terminal proBNP 01/28/23 [facility] Evaluation + Plan note Future Appointments Appointment Date:05/18/2023 10:00:00 AM Scheduled Provider: Location:[facility] Appointment Type:CV OV Appointment Date:06/29/2023 09:45:00 AM Scheduled Provider: Location:[facility] Appointment Type:CV Remote Procedure Appointment Date:07/29/2023 02:45:00 PM Scheduled Provider:ADRIENNE BYERS DO [facility] Type:PC Wellness Annual Future Scheduled Tests [...] N-Terminal proBNP 12/09/22 * N-Terminal proBNP 01/28/23 [facility] Evaluation + Plan note Future Appointments Appointment Date:06/29/2023 09:45:00 AM Scheduled Provider: Location:[facility] Appointment Type:CV Remote Procedure HM Appointment Date:07/29/2023 02:45:00 PM Scheduled Provider:ADRIENNE BYERS DO Location:[facility] Appointment Type:PC Wellness Annual Future Scheduled [...] 01/28/23 Radiology* CT Thorax w/o Contrast 11/24/23 [facility] Evaluation + Plan note Future Appointments [...] 01/28/23 Radiology* CT Thorax w/o Contrast 11/24/23 [facility] Evaluation + Plan note Future Appointments Appointment Date:08/16/2023 03:30:00 PM Scheduled Provider: Location:[facility] Appointment Type:DB Diabetic Individual Visit (AOH) Appointment [...] 01/28/23 Radiology* CT Thorax w/o Contrast 11/24/23 [facility] Evaluation + Plan note Future Appointments [...] 01/28/23 Radiology* CT Thorax w/o Contrast 11/24/23 [facility] Evaluation + Plan note Future Appointments [...] 01/28/23 Radiology* CT Thorax w/o Contrast 11/24/23 [facility] Evaluation + Plan note Future Appointments Appointment Date:10/28/2023 01:00:00 PM Scheduled Provider: Location:[facility] Appointment Type:OT Outpatient Evaluation Appointment Date:10/29/2023 11:30:00 AM Scheduled Provider:ADRIENNE BYERS DO Location:[facility] Appointment Type:PC OV TCM 30 Appointment [...] 01/28/23 Radiology* CT Thorax w/o Contrast 11/24/23 [facility] Evaluation + Plan note Future Appointments Appointment Date:12/30/2023 01:30:00 PM Scheduled Provider: Location:[facility] Appointment Type:OT Treatment Appointment Date:01/03/2024 01:30:00 PM Scheduled Provider: Location:[facility] Appointment Type:OT Treatment Appointment Date:02/21/2024 02:30:00 PM Scheduled Provider:ADRIENNE BYERS DO Location:[facility] Appointment Type:PC OV Appointment Date:03/03/2024 02:45:00 [...] 01/28/23 Radiology* CT Thorax w/o Contrast 11/24/23 [facility] Evaluation + Plan note Future Appointments Appointment Date:02/21/2024 02:30:00 PM Scheduled Provider:ADRIENNE BYERS DO Location:[facility] Appointment Type:PC OV Appointment Date:03/03/2024 02:45:00 [...] 01/28/23 Radiology* CT Thorax w/o Contrast 11/24/23 [facility] Evaluation + Plan note Future Appointments Appointment Date:06/06/2024 08:30:00 AM Scheduled Provider: Location:[facility] Appointment Type:CV OV Appointment Date:06/16/2024 10:00:00 AM Scheduled Provider: Location:[facility] Appointment Type:CV Remote Procedure Appointment Date:06/23/2024 01:30:00 PM Scheduled Provider:ADRIENNE BYERS DO Location:[facility] Appointment Type:PC OV Future Scheduled Tests Laboratory* Basic Metabolic Panel 06/11/23 * Urinalysis 04/29/23 * Lipid Profile 05/03/24 * Albumin/Creatinine Ratio, Random Urine 04/29/23 * Albumin/Creatinine Ratio, Random Urine 02/25/24 * N-Terminal proBNP 05/03/24 Radiology* CT Thorax w/o Contrast 11/24/23 [facility] Evaluation + Plan note Future Appointments Appointment Date:06/06/2024 08:30:00 AM Scheduled Provider: Location:[facility] Appointment Type:CV OV Appointment Date:06/16/2024 10:00:00 AM Scheduled Provider: Location:[facility] Appointment Type:CV Remote Procedure Appointment Date:06/23/2024 01:30:00 PM Scheduled Provider:ADRIENNE BYERS DO Location:[facility] Appointment Type:PC OV Appointment Date:12/07/2024 03:00:00 PM Scheduled Provider:ADRIENNE BYERS DO Location:[facility] Appointment Type:PC Wellness Medicare Future Scheduled Tests Laboratory* Basic Metabolic Panel 06/11/23 * Albumin/Creatinine Ratio, Random Urine 02/25/24 Radiology* CT Thorax w/o Contrast 11/24/23 [facility] Evaluation note* Diagnosis Tremor of left hand- Primary [facility]* Diagnosis Parkinsonism, unspecified Parkinsonism type (HCC)- Primary Tremor of left hand documented in this encounter [facility] note* 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 Parkinson disease (HCC) Paralysis agitans Nocturnal muscle cramp Cramp of limb [facility]* Diagnosis Tremor of left hand [facility]* Diagnosis History of stroke- Primary Transient ischemic attack (TIA), and cerebral infarction without residual deficits Spasticity Abnormal involuntary movements Spastic hemiparesis (HCC) Spastic hemiplegia affecting unspecified side [facility]* 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 Parkinsonism, unspecified Parkinsonism type (HCC) documented in this encounter [facility] noteNo assessment information availableWTr[facility] Work Phone: Evaluation note* Diagnosis Onset Date Resolution Status Cerebrovascular disease acut e CVA (cerebral vascular accident) acute AV node dysfunction acute Ischemic cardiomyopathy acut e Presence of biventricular im plantable cardioverter-defibrillator acute [facility] Work Phone: Evaluation note* Diagnosis Onset Date Resolution Status Cerebrovascular disease acut e CVA (cerebral vascular accident) acute AV node dysfunction acute Ischemic cardiomyopathy acut e Presence of biventricular im plantable cardioverter-defibrillator acute Anxiety acute CVA (cerebral vascular accident) acute Debility acute Depression acute Diabetes mellitus acute GERD (gastroesophageal reflux disease) acute Muscle spasm acute Overactive bladder acute Transient ischemic attack ac mentasta Vitamin D deficiency acute HLD (hyperlipidemia) chronic HTN (hypertension) chronic CVA (cerebral vascular accident) acute [facility] Work Phone: Evaluation note* Diagnosis Onset Date Resolution Status Cerebrovascular disease acut e AV node dysfunction acute Ischemic cardiomyopathy acut e Presence of biventricular im plantable cardioverter-defibrillator acute Anxiety acute Debility acute Depression acute Diabetes mellitus acute GERD (gastroesophageal reflux disease) acute Muscle spasm acute Overactive bladder acute Transient ischemic attack ac mentasta Vitamin D deficiency acute HLD (hyperlipidemia) chronic HTN (hypertension) chronic Ischemic cardiomyopathy acut e Transient ischemic attack ac mentasta PFO (patent foramen ovale) c [facility] Work Phone: Evaluation note* Diagnosis Essential tremor- Primary Essential and other specified forms of tremor Tremor of left hand documented [facility]* Diagnosis Onset Date Resolution Status Cerebrovascular [...] acut e PFO (patent foramen ovale) c [facility] Work Phone: Evaluation note* Diagnosis Onset Date Resolution Status Colitis acute Gastrointestinal bleeding, lower acute [facility] Work Phone: Evaluation note* Diagnosis Onset Date [...] vascular accident) resolved Gastrointestinal bleeding, lower resolved [facility] Work Phone: Evaluation note* Diagnosis History of stroke- Primary Transient ischemic attack (TIA), and cerebral infarction without residual deficits Spasticity Abnormal involuntary movements [facility]* Diagnosis Other constipation [facility]* Diagnosis Other constipation- Primary Other constipation [facility] Diagnosis Dizziness and giddiness [facility]* Diagnosis Other forms of dyspnea [facility]* Diagnosis Other forms of dyspnea- Primary [facility]* Diagnosis Dizziness and giddiness- Primary Dizziness and giddiness [facility]* Diagnosis Tardive dyskinesia- Primary Subacute dyskinesia due to drugs [facility] Diagnosis Essential tremor- Primary Essential and other specified forms of tremor Dyskinesia, tardive Subacute dyskinesia due to drugs documented [facility]* Diagnosis Presence of cardiac pacemaker Cardiac pacemaker in situ documented in this encounter [facility] note* Diagnosis Essential tremor Essential and other specified forms of tremor Dyskinesia, tardive Subacute dyskinesia due to drugs documented [facility] this [facility]* Diagnosis Tardive dyskinesia- Primary Subacute dyskinesia due to drugs documented [facility] this [facility]* Diagnosis Chronic systolic (congestive) heart failure (HCC) [facility]* Diagnosis Tardive dyskinesia- Primary Subacute dyskinesia due to drugs documented in this encounter [facility] note* Diagnosis Chronic fatigue and malaise- Primary [...] of COVID-19 (PASC) documented in this encounter [facility] note* Diagnosis Chronic systolic (congestive) heart failure (HCC)- Primary Chronic systolic (congestive) heart failure (HCC) documented in this encounter [facility] HealthHistory and physical note Author Jaci Greco [facility] October 07, 2023 2:38pm Note Date/Time October 07, 2023 1:59pm [facility] Medical Records Department [address] [place] [address] H&P Exam - Hospitalist 10/07/23 1355 MR#: [id number] Acct: [id number] Name: MANSI CARO Rep #:[id number] 21 : [...] and Plavix who now re-presents to the [facility] ED on 10/07/23 with history of [...] AV node dysfunction Cardiac resynchronization therapy defibrillator (ROTARY DRILL OPERATOR-D) in place Cerebral palsy Coronary artery disease [...] (Auto) 41.7 L, Lymph % (Auto) 47.6 H,Phelps % (Auto) 9.0, Eos % (Auto) 0.9, [...] and Plavix who now re-presents to the [facility] ED on 10/07/23 with history of [...] 16 minutes. Charges/Coding Visit Charges Inpatient E&M: 51038 Init Hosp L3 Procedures Hospitalists Procedures: 82126 Advncd Care Plan 30 Min 10/07/23 1438 <Electronically signed by Jaci Greco MD> Cosigner Signature (if applicable): CC: Dr. Jaci Greco MD; Dr. Adrienne Byers, ~ Signed [facility] Work Phone: History and physical note Author Ben Johnson [facility] February 21, 2024 9:35pm Note Date/Time February 21, 2024 9:[address] [facility] Medical Records Department [address] [place] [address] H&P Exam - Hospitalist 02/21/242124 MR#: [id number] Acct: [id number] Name: MANSI CARO Rep #:[id number] : 1955 69 From: eBn Johnson DO PCP: Dr. Adrienne Byers, DO Status:ADM IN Location: [facility] [id number] HPI - General General Date of Admission: 02/21/24 Date of Service: 02/21/24 Chief Complaint: Abdominal pain, bright red blood in stool HPI Narrative MANSI CARO, is a 69 F who presents to the emergency room at [facility] for evaluation of right red [...] neoplastic component. Patient will be admitted to [facility], she will be placed on IV antibiotics, shewill be seen by gastroenterology, she may need endoscopic procedures. Labs willbe monitored. [facility] Medical History Anxiety and depression AV node dysfunction Cardiac resynchronization therapy defibrillator (ROTARY DRILL OPERATOR-D) in place Cerebral palsy Congestive heart failure [...] (Auto) 88.4 H, Lymph % (Auto) 5.3L, Phelps % (Auto) 5.5, Eos % (Auto) 0.0, [...] Clarity Clear, Urine pH 5.0, Ur Specific [place] 1.015, Urine Protein 15 H, Urine Glucose [...] Colitis-etiology unclear, patient will be admitted to [facility], she was placed on IV [...] 75 minutes Charges/Coding Visit Charges Inpatient E&M: 54493 Init Hosp L3 02/21/242134 <Electronically signed by Ben Johnson DO> Cosigner Signature (if applicable): CC: Dr. Ben Johnson, ; Dr. Adrienne Byers DO~ Signed [facility] Work Phone: History and physical note Author Jose Royal [facility] Note Date/Time July 01, 2025 7: 33pm [facility] Medical Records Department [address] [place] [address] H&P Exam - Hospitalist 07/01/251926 MR#: [id number] Acct: [id number] Name: MANSI CARO Rep #:[id number] 21 : [...] patient was doingtoo well to go to half-way facility so went home. While at home [...] safely care for her at this time. [facility] Medical History Duodenal stenosis Pneumonia Dyspnea Back [...] (patent foramen ovale) Cardiac resynchronization therapy defibrillator (ROTARY DRILL OPERATOR-D) in place Myocarditis Hyperlipidemia Hypertension Home Medications [...] 0.125 mg tablet 0.125 mg PO TID AR N dyspepsia #90 06/04/25 Unknown Rx tabs [...] Neut % (Auto) 49.2, Lymph % (Auto) 34.9,Phelps % (Auto) 13.2 H, Eos % (Auto) [...] pulmonary opacities, compatible with pneumonitis/pneumonia. Reading Location: [id number] Chest CTA 07/01/25 18:03 IMPRESSION: 1. No evidence of pulmonary embolism. 2. Stable ground-glass opacities throughout the dependent and bibasilar lungs, compatible with pneumonitis/pneumonia. Clinical correlation recommended. Reading Location: [id number] Assessment & Plan Assessment/Plan (1) Failure to [...] full code. Charges/Coding Visit Charges Inpatient E&M: 27557 Init Hosp L2 07/01/251932 <Electronically signed by Jose Royal DO> Cosigner Signature (if applicable): CC: Dr. Jose Royal DO; Marci Lopez DO~ Signed [facility] Work Phone: Hospital course Narrative No data available for this section [facility] Hospital Discharge instructions No data available for this section [facility] Hospital Discharge instructions Additional Instructions Follow-up at your PCP appointment on Wednesday and return for any worsening of your symptoms. Stay well-hydrated, you can take either MiraLAX or Dulcolax for your constipation. [facility] Work Phone: Hospital Discharge instructions Additional Instructions You can take [id number] pain relievers or your oxycodone as needed for breakthrough pain. [facility] Work Phone: Hospital Discharge instructionsAdditional Instructions Follow-up your doctor in outpatient setting. Take antibiotics for your urinary tract infection as prescribed use other antibiotics as prescribed as well. Return with worsening symptoms or any concerns. 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, unspecified Parkinsonism type (HCC) Procedures NM BRAIN TREMOR SPECT/CT RP LOCLZJ YASMANI SPECT W/CT 1 AREA 1 DAY IMAGING Sherif Ramirez MD [address] [phone] Molecular & Functional Imaging [address] [place] [address] Referral ID Status Reason Start Date Expiration Date Visits Requested Visits Authorized [id number] Authorized Auto-Generat ed Referral 07/01/2023 07/30/2024 1 1 [facility] for visit Narrative* Diagnostic Procedure Only (Routine) - Closed Specialty Diagnoses / Procedures Referred By Oni angel Referred To Contact MOLECULAR & FUNCTIONAL IMAGING 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, unspecified Parkinsonism type Procedures NM BRAIN TREMOR SPECT/CT RP LOCLZJ YASMANI SPECT W/CT 1 AREA 1 DAY IMAGING Sherif Ramirez MD [address] [phone] Molecular & Functional Imaging [address] [place] [address] Referral ID Status Reason Start Date Expiration Date V isits Requested Visits Authorized [id number] Closed Auto-Generate d Referral 07/01/2023 07/30/2024 1 1 [facility] for visit Narrative* Diagnostic Procedure Only (Routine) - Closed Specialty Diagnoses / Procedures Referred By Oni angel Referred To Contact Radiology / RADIO CT SCAN Diagnoses Solitary pulmonary nodule CT CHEST W/O CONTRAST R91.1 pulmonary nodule ORDER IN SCANNED DOCS AUTH # [id number] VALID 07.12.24 TO 09.10.24 Procedures DIAGNOSTIC COMPUTED TOMOGRAPHY THORAX W/O CNTRST CT WO CH 400 Martha Pillai V, MD [address] Scan [facility] [address] [place] [address] Referral ID Status Reason Start Date Expiration Date Visits Re quested Visits Authorized [id number] Closed 07/12/2024 09/10/2024 1 1 [facility] for visit Narrative* Imaging (Routine) - Closed Specialty Diagnoses / Procedures Referred By Oni t Referred To Contact Cardiology Diagnoses Dizziness and giddiness Procedures Vascular US carotid artery duplex bilateral Pina Isidro [address] [place] [address] Phone: tel: fax: Referral ID Status Reason Start Date Expiration Date Visits Re quested Visits Authorized [id number] Closed 11/07/2024 11/07/2025 1 1 [facility] for visit Narrative* (Routine) - Pending Review Specialty Diagnoses / Procedures Referred By Oni t Referred To Contact Diagnoses Other forms of dyspnea Procedures Complete PFT pre and post bronchodilator Marci Lopez [address] [place] [address] Phone: tel: fax: Referral ID Status Reason Start Date Expiration Date V [facility] Requested Visits Authorized [id number] Pending Review 10/13/2024 10/08/2025 1 1 [facility] for visit Narrative* MRI/CT (Routine) - Authorized Specialty Diagnoses / Procedures Referred By Oni t Referred To Contact Radiology / RADIO CT SCAN Diagnoses Other nonspecific abnormal finding of lung field CT Chest wo contrast DX: R91.8 Auth# [id number] Order scanned into chart on 01/05/2025 Procedures DIAGNOSTIC COMPUTED TOMOGRAPHY THORAX W/O CNTRST CT WO CH 400 Kalen Izaguirre MD [address] [address] Phone: tel: fax: [facility] [address] [place] [address] Phone: tel: fax: Referral ID Status Reason Start Date Expiration Date V isits Requested Visits Authorized [id number] Authorized 01/02/2025 03/03/2025 2 2 [facility] for visit Narrative* MRI/CT (Routine) - Closed Specialty Diagnoses / Procedures Referred By Contac t Referred To Contact MR IMAGING Diagnoses Essential tremor Dyskinesia, tardive Procedures MRI BRAIN WO IVCON MRI BRAIN BRAIN STEM W/O CONTRAST MATERIAL Leyla Murphy MD [facility] [address] [facility] [address] [place] [address] Phone: tel: fax: [place] [id number] Referral ID Status Reason Start Date Expiration Date V isits Requested Visits Authorized [id number] Closed Auto-Generate d Referral 03/23/2025 05/22/2025 1 1 [facility] Summary Purpose Family History No Family [...] Will Yes September 28 8:21pm Power of Caregivers Non Medical Yes September 28, 2023 8:21pm Name of Medical Power of Caregivers Non Medical BEATRICE PENA September 28, 2023 8:21pm Advance Directive Response Recorded Date/ Time Name of Medical Power of Caregivers Non Medical Song [email or web address] September 28, 2023 10:25pm Advance Directives Yes May 18 7:27pm Living Will Yes September 28 10:25pm Power of Caregivers Non Medical Yes September 28, 2023 10:25pm Advance Directive Response Recorded Date/ Time Name of Medical Power of Caregivers Non Medical Song [email or web address] September 28, 2023 10:25pm Name of Medical Power of Caregivers Non Medical jose Naqviband October 04, 2023 1:28pm Name of Medical Power of Caregivers Non Medical spouse October 07, 2023 1:12pm Advance Directives Yes May 18 7:27pm Living Will Yes October 07, 2 023 1:12pm Power of Caregivers Non Medical Yes October 07, 2023 1:12pm Advance Directive Response Recorded Date/ Time Name of Medical Power of Caregivers Non Medical Song [email or web address] September 28, 2023 10:25pm Name of Medical Power of Caregivers Non Medical jose Naqviband October 04, 2023 1:28pm Name of Medical Power of Caregivers Non Medical spouse October 07, 2023 3:14pm Advance Directives Yes May 18 7:27pm Living Will Yes October 07, 2 023 3:14pm Power of Caregivers Non Medical Yes October 07, 2023 3:14pm Advance Directive Response Recorded Date/ Time Name of Medical Power of Caregivers Non Medical Song [email or web address] September 28, 2023 10:25pm Name of Medical Power of Caregivers Non Medical jose Naqviband October 04, 2023 1:28pm Name of Medical Power of Caregivers Non Medical spouse October 07, 2023 3:14pm Name of Medical Power of Caregivers Non Medical Song Ramírez December 08, 2023 3:46pm Advance Directives Yes May 18 7:27pm Living Will Yes December 08 3:46pm Power of Caregivers Non Medical Yes December 08, 2023 3:46pm Advance Directive Response Recorded Date/ Time Name of Medical Power of Caregivers Non Medical Song Ramírez December 08, 2023 4:46pm Advance Directives Yes May 18 8:27pm Living Will No February 19, 2024 4:09pm Power of Caregivers Non Medical No February 18 4:09pm Advance Directive Response Recorded Date/ Time Name of Medical Power of Caregivers Non Medical Song Ramírez December 08, 2023 4:46pm Advance Directives Yes May 18 16 8:27pm Living Will No February 21, 2024 3:03pm Power of Caregivers Non Medical No February 20 3:03pm Advance Directive Response Recorded Date/ Time Name of Medical Power of Caregivers Non Medical Song Ramírez December 08, 2023 4:46pm Name of Medical Power of Caregivers Non Medical Song [email or web address] February 21, 2024 10:15pm Advance Directives Yes May 18 8:27pm Living Will Yes February 21, 2024 10:15pm Power of Caregivers Non Medical Yes February 20 10:15pm Advance Directive Response Recorded Date/ Time Name of Medical Power of Caregivers Non Medical Song Ramírez December 08, 2023 4:46pm Name of Medical Power of Caregivers Non Medical Song [email or web address] February 21, 2024 10:15pm Name of Medical Power of Caregivers Non Medical eris Cuello March 08, 2024 4:39pm Advance Directives Yes May 18 8:27pm Living Will Yes March 08, 2024 4:39pm Power of Caregivers Non Medical Yes March 08 4:39pm Advance Directive Response Recorded Date/ Time Living Will Yes July 03 7:58pm Do you have a Healthcare Power of Caregivers Non Medical? Yes July 03, 2024 7:58pm Advance Directives Yes October 2:46pm Living Will Yes September 09 2:39pm Do you have a Healthcare Power of Caregivers Non Medical? Yes September 09, 2024 2:39pm Living Will No November 18, 3:39pm Do you have a Healthcare Power of Caregivers Non Medical? No November 18, 2024 3:39pm Living Will No March 10, 2025 11:55am Do you have a Healthcare Power of Caregivers Non Medical? No March 10, 2025 11:55am Advance Directive Response Recorded Date/ Time Living Will Yes July 03 7:58pm Do you have a Healthcare Power of Caregivers Non Medical? Yes July 03, 2024 7:58pm Advance Directives Yes October 2:46pm Living Will No March 10, 2025 11:55am Do you have a Healthcare Power of Caregivers Non Medical? No March 10, 2025 11:55am Advance Directive Response Recorded Date/ Time Living Will Yes July 03 7:58pm Do you have a Healthcare Power of Caregivers Non Medical? Yes July 03, 2024 7:58pm Living Will No March 10, 2025 11:55am Do you have a Healthcare Power of Caregivers Non Medical? No March 10, 2025 11:55am Do you have a Healthcare Power of Caregivers Non Medical? Yes April 19, 2025 3:35am Advance Directives Yes October 2:46pm Advance Directive Response Recorded Date/ Time Living Will Yes July 03 7:58pm Do you have a Healthcare Power of Caregivers Non Medical? Yes July 03, 2024 7:58pm Living Will No March 10, 2025 11:55am Do you have a Healthcare Power of Caregivers Non Medical? No March 10, 2025 11:55am Do you have a Healthcare Power of Caregivers Non Medical? Yes April 19, 2025 1:19pm Advance Directives Yes October 2:46pm Advance Directive Response Recorded Date/ Time Living Will Yes July 03 7:58pm Do you have a Healthcare Pow er of Caregivers Non Medical? Yes July 03, 2024 7:58pm Do you have a Healthcare Pow er of Caregivers Non Medical? No April 23, 2025 4:09pm Do you have a Healthcare Pow er of Caregivers Non Medical? Yes April 24, 2025 3:39pm Name of Medical Power of Caregivers Non Medical Song [email or web address], April 24, 2025 3:39pm Living Will No March 10, 2025 11:55am Do you have a Healthcare Pow er of Caregivers Non Medical? No March 10, 2025 11:55am Do you have a Healthcare Pow er of Caregivers Non Medical? Yes April 19, 2025 1:19pm Advance Directives Yes October 2:46pm Advance Directive Response Recorded Date/ Time Living Will Yes July 03 7:58pm Do you have a Healthcare Pow er of Caregivers Non Medical? Yes July 03, 2024 7:58pm Do you have a Healthcare Pow er of Caregivers Non Medical? No April 23, 2025 4:09pm Do you have a Healthcare Pow er of Caregivers Non Medical? Yes April 24, 2025 3:39pm Name of Medical Power of Caregivers Non Medical Song [email or web address], April 24, 2025 3:39pm Do you have a Healthcare Pow er of Caregivers Non Medical? No May 22, 2025 4:39pm Living Will No March 10, 2025 11:55am Do you have a Healthcare Pow er of Caregivers Non Medical? No March 10, 2025 11:55am Do you have a Healthcare Pow er of Caregivers Non Medical? Yes April 19, 2025 1:19pm Advance Directives Yes October 2:46pm Advance Directive Response Recorded Date/ Time Do you have a Healthcare Pow er of Caregivers Non Medical? No April 23, 2025 4:09pm Do you have a Healthcare Pow er of Caregivers Non Medical? Yes April 24, 2025 3:39pm Name of Medical Power of Caregivers Non Medical Song [email or web address], April 24, 2025 3:39pm Do you have a Healthcare Pow er of Caregivers Non Medical? No May 22, 2025 4:39pm Living Will No March 10, 2025 11:55am Do you have a Healthcare Pow er of Caregivers Non Medical? No March 10, 2025 11:55am Do you have a Healthcare Pow er of Caregivers Non Medical? Yes April 19, 2025 1:19pm Advance Directives Yes October 2:46pm Advance Directive Response Recorded Date/ Time Do you have a Healthcare Pow er of Caregivers Non Medical? No April 23, 2025 4:09pm Do you have a Healthcare Pow er of Caregivers Non Medical? Yes April 24, 2025 3:39pm Name of Medical Power of Caregivers Non Medical Song [email or web address], April 24, 2025 3:39pm Do you have a Healthcare Pow er of Caregivers Non Medical? No May 22, 2025 4:39pm Living Will No March 10, 2025 11:55am Do you have a Healthcare Pow er of Caregivers Non Medical? No March 10, 2025 11:55am Do you have a Healthcare Pow er of Caregivers Non Medical? Yes April 19, 2025 1:19pm Do you have a Healthcare Pow er of Caregivers Non Medical? No June 02, 2025 10:35am Advance Directives Yes October 2:46pm Advance Directive Response Recorded Date/ Time Do you have a Healthcare Pow er of Caregivers Non Medical? No April 23, 2025 4:09pm Do you have a Healthcare Pow er of Caregivers Non Medical? Yes April 24, 2025 3:39pm Name of Medical Power of Caregivers Non Medical Song Kathy [email or web address], April 24, 2025 3:39pm Do you have a Healthcare Pow er of Caregivers Non Medical? No May 22, 2025 4:39pm Living Will No March 10, 2025 11:55am Do you have a Healthcare Pow er of Caregivers Non Medical? No March 10, 2025 11:55am Do you have a Healthcare Pow er of Caregivers Non Medical? Yes April 19, 2025 1:19pm Do you have a Healthcare Pow er of Caregivers Non Medical? Yes June 02, 2025 2:27pm Advance Directives Yes October 2:46pm Advance Directive Response Recorded Date/ Time Do you have a Healthcare Pow er of Caregivers Non Medical? No April 23, 2025 4:09pm Do you have a Healthcare Pow er of Caregivers Non Medical? Yes April 24, 2025 3:39pm Name of Medical Power of Caregivers Non Medical Songdhruv Chavez nakita, April 24, 2025 3:39pm Do you have a Healthcare Pow er of Caregivers Non Medical? No May 22, 2025 4:39pm Living Will No March 10, 2025 11:55am Do you have a Healthcare Pow er of Caregivers Non Medical? No March 10, 2025 11:55am Do you have a Healthcare Pow er of Caregivers Non Medical? Yes April 19, 2025 1:19pm Do you have a Healthcare Pow er of Caregivers Non Medical? Yes June 02, 2025 2:27pm Do you have a Healthcare Pow er of Caregivers Non Medical? Yes July 01, 2025 4:38pm Advance Directives Yes October 2:46pm Advance Directive Response Recorded Date/ Time Do you have a Healthcare Pow er of Caregivers Non Medical? No April 23, 2025 4:09pm Do you have a Healthcare Pow er of Caregivers Non Medical? Yes April 24, 2025 3:39pm Name of Medical Power of Caregivers Non Medical Song Kathy nakita, April 24, 2025 3:39pm Do you have a Healthcare Pow er of Caregivers Non Medical? No May 22, 2025 4:39pm Living Will No March 10, 2025 11:55am Do you have a Healthcare Pow er of Caregivers Non Medical? No March 10, 2025 11:55am Do you have a Healthcare Pow er of Caregivers Non Medical? Yes April 19, 2025 1:19pm Do you have a Healthcare Pow er of Caregivers Non Medical? Yes June 02, 2025 2:27pm Do you have a Healthcare Pow er of Caregivers Non Medical? Yes July 01, 2025 9:16pm Advance Directives Yes October 2:46pm Advance Directive Response Recorded Date/ Time Do you have a Healthcare Pow er of Caregivers Non Medical? No April 23, 2025 4:09pm Do you have a Healthcare Pow er of Caregivers Non Medical? Yes April 24, 2025 3:39pm Name of Medical Power of Caregivers Non Medical Song [email or web address], April 24, 2025 3:39pm Do you have a Healthcare Pow er of Caregivers Non Medical? No May 22, 2025 4:39pm Do you have a Healthcare Pow er of Caregivers Non Medical? Yes April 19, 2025 1:19pm Do you have a Healthcare Pow er of Caregivers Non Medical? Yes June 02, 2025 2:27pm Do you have a Healthcare Pow er of Caregivers Non Medical? Yes July 01, 2025 9:16pm Advance Directives Yes October 2:46pm Advance Directive Response Recorded Date/ Time Do you have a Healthcare Pow er of Caregivers Non Medical? No April 23, 2025 4:09pm Do you have a Healthcare Pow er of Caregivers Non Medical? Yes April 24, 2025 3:39pm Name of Medical Power of Caregivers Non Medical Song [email or web address], April 24, 2025 3:39pm Do you have a Healthcare Pow er of Caregivers Non Medical? No May 22, 2025 4:39pm Do you have a Healthcare Pow er of Caregivers Non Medical? Yes April 19, 2025 1:19pm Do you have a Healthcare Pow er of Caregivers Non Medical? Yes June 02, 2025 2:27pm Do you have a Healthcare Pow er of Caregivers Non Medical? Yes July 01, 2025 9:16pm Advance Directives Yes July 17, 2025 10:59am Advance Directive Response Recorded Date/ Time Living Will Yes July 03 7:58pm Do you have a Healthcare Pow er of Caregivers Non Medical? Yes July 03, 2024 7:58pm Do you have a Healthcare Pow er of Caregivers Non Medical? No April 23, 2025 4:09pm Do you have a Healthcare Pow er of Caregivers Non Medical? Yes April 24, 2025 3:39pm Name of Medical Power of Caregivers Non Medical Songdhruv [email or web address], April 24, 2025 3:39pm Do you have a Healthcare Pow er of Caregivers Non Medical? No May 22, 2025 4:39pm Do you have a Healthcare Pow er of Caregivers Non Medical? Yes April 19, 2025 1:19pm Do you have a Healthcare Pow er of Caregivers Non Medical? Yes June 02, 2025 2:27pm Do you have a Healthcare Pow er of Caregivers Non Medical? Yes July 01, 2025 9:16pm Advance Directives Yes July 17, 2025 10:59am Advance Directive Response Recorded Date/ Time Living Will Yes July 03 7:58pm Do you have a Healthcare Pow er of Caregivers Non Medical? Yes July 03, 2024 7:58pm Advance Directives Yes July 17, 2025 10:59am Do you have a Healthcare Pow er of Caregivers Non Medical? No April 23, 2025 4:09pm Do you have a Healthcare Pow er of Caregivers Non Medical? Yes April 24, 2025 3:39pm Name of Medical Power of Caregivers Non Medical Song [email or web address], April 24, 2025 3:39pm Do you have a Healthcare Pow er of Caregivers Non Medical? No May 22, 2025 4:39pm Do you have a Healthcare Pow er of Caregivers Non Medical? Yes April 19, 2025 1:19pm Do you have a Healthcare Pow er of Caregivers Non Medical? Yes June 02, 2025 2:27pm Do you have a Healthcare Pow er of Caregivers Non Medical? Yes July 01, 2025 9:16pm Advance Directive Response Recorded Date/ Time Living Will Yes July 03 7:58pm Do you have a Healthcare Pow er of Caregivers Non Medical? Yes July 03, 2024 7:58pm Advance Directives Yes July 17, 2025 10:59am Do you have a Healthcare Pow er of Caregivers Non Medical? Yes April 24, 2025 3:39pm Name of Medical Power of Caregivers Non Medical Song [email or web address], April 24, 2025 3:39pm Do you have a Healthcare Pow er of Caregivers Non Medical? No May 22, 2025 4:39pm Do you have a Healthcare Pow er of Caregivers Non Medical? Yes June 02, 2025 2:27pm Do you have a Healthcare Pow er of Caregivers Non Medical? Yes July 01, 2025 9:16pm Advance Directive Response Recorded Date/ Time Living Will Yes July 03 7:58pm Do you have a Healthcare Power of Caregivers Non Medical? Yes July 03, 2024 7:58pm Advance Directives Yes July 17, 2025 10:59am Do you have a Healthcare Power of Caregivers Non Medical? No May 22, 2025 4:39pm Do you have a Healthcare Power of Caregivers Non Medical? Yes September 16, 2025 7:29pm Do you have a Healthcare Power of Caregivers Non Medical? Yes June 02, 2025 2:27pm Do you have a Healthcare Power of Caregivers Non Medical? Yes July 01, 2025 9:16pm Reason for Referral Specialty Diagnoses / Procedures Referred By Oni angel Referred To Contact Diagnoses Tremor of left hand Essential tremor Procedures PROVIDER ORDERED FOLLOW UP OFFICE/OUTPATIENT [facility] MDM 60-74 MINUTES Sherif Ramirez MD [address] [place] [address] Referral ID Status Reason Start Date Expiration Date Visits Requested Visits Authorized [id number] Pending Review PCP Requested Referral 3 01/18/2024 1 1 Specialty Diagnoses / Procedures Referred By Oni angel Referred To Contact [facility] Diagnoses Tremor of left hand Essential tremor Procedures CONSULT TO TATTOO DESIGNER OCCUPATIONAL THERAPY EVAL HIGH COMPLEX 60 MINS Sherif Ramirez MD [address] [place] [address] [facility] [place] [id number] Referral ID Status Reason Start Date Expiration Date Visits Requested Visits Authorized [id number] Pending Review Auto-Generat ed Referral 3 10/19/2024 1 1 Specialty Diagnoses / Procedures Referred By Oni angel Referred To Contact Diagnoses Tremor of left hand Procedures PROVIDER ORDERED FOLLOW UP OFFICE/OUTPATIENT [facility] MDM 60-74 MINUTES Sherif Ramirez MD [address] [place] [address] Referral ID Status Reason Start Date Expiration Date Visits Requested Visits Authorized [id number] Authorized PCP Requested Referral 06/23/2022 06/23/2023 1 1 Specialty Diagnoses / Procedures Referred By Oni angel Referred To Contact Neurology Diagnoses Tremor of left hand Procedures CONSULT TO NEUROLOGY OFFICE/OUTPATIENT [facility] 60-74 MINUTES Ghazala Gusman MD [address] [place] [address] Referral ID Status Reason Start Date Expiration Date Visits Requested Visits Authorized [id number] Authorized PCP Requested Referral 06/04/2022 06/04/2023 1 [...] 19, 2024 2:48pm Ischemic cardiomyopathy January 18 1:19pm Presence of [...] - LABS (DOING 1 DAY PRIOR) January 3r 2024 11:00am 6 MO - LABS (DOING 1 [...] 2025 4:10p m GERD (gastroesophageal reflux disease) 2024 4:10pm Insomnia April 20, 2025 4:10p [...] Presence of stent in coronary artery Sung y 2024 3:08pm Abdominal pain May 30, 2025 [...] TO THRIVE July 04, 2025 8: 57am Hospital FU- COPD July 12, 2025 9: [...] in [place] July 25, 2025 12:44pm Annual ROTARY DRILL OPERATOR-D check July 26, 2025 1:47pm Reason for Visit Admit Date Generalized weakness April 19, 2025 11:2 6am Calcium deficiency April 20, 2025 4:10p m CVA (cerebral vascular accident) March 4:10pm Debility April 20, 2025 4:10p m Depression April 20, 2025 4:10p m Diabetes mellitus April 20, 2025 4:10p m GERD (gastroesophageal reflux disease) 2024 4:10pm Insomnia April 20, 2025 4:10p [...] Check Remote July 26, 2025 9:00am Annual ROTARY DRILL OPERATOR-D check July 26, 2025 1:47pm Pacer Check [...] Check Remote July 26, 2025 9:00am Annual ROTARY DRILL OPERATOR-D check July 26, 2025 1:47pm Pacer Check [...] Check Remote July 26, 2025 9:00am Annual ROTARY DRILL OPERATOR-D check July 26, 2025 1:47pm Pacer Check [...] Check Remote July 26, 2025 9:00am Annual ROTARY DRILL OPERATOR-D check July 26, 2025 1:47pm Pacer Check [...] 06, 2025 2:41pm Chief Complaint Admit Date abd pain May 22, 2025 2:38p m [...] s, in [place] July 25, 2025 12:44pm F17.211 - Nicotine dependence, cigarette s, in [place] July 25, 2025 12:55pm Pacer Check Remote July 26, 2025 9:00am Annual ROTARY DRILL OPERATOR-D check July 26, 2025 1:47pm Pacer Check Remote July 30, 2025 12:20am Pacer Check Remote August 06, 2025 12:22am Rescheduled MED f/u August 06, 2025 2:41pm 3 M FU/ Abd Pain August 29, 2025 2: 03pm Having trouble w/urination September 03, 2025 2:11pm weakness September 16, 2025 7 :06pm Reason for Visit Admit Date Ischemic cardiomyopathy May 29, 2025 3 :08pm Presence of biventricular im plantable cardioverter-defibrillator May 29, 2025 3:08pm Presence of stent in coronary artery Sung y 2024 3:08pm Abdominal pain May 30, 2025 [...] Urinary tract infection August 06, 2025 2:41pm Irritable bowel syndrome August 29 2:03pm Ischemic colitis August 29, 2025 2: 03pm Chronic constipation August 29, 2025 2 :03pm Abdominal pain September 03, 2025 2 :11pm Nocturia September 03, 2025 2 :11pm Overactive bladder September 03, 2025 2 :11pm Urge incontinence September 03, 2025 2 :11pm Chronic constipation September 03, 2025 2:11pm Urinary tract infection September 03 2:11pm Additional Source Comments INFORMATION SOURCE (unrecogn ized section and content) DATE CREATED AUTHOR 01/17/2020 [facility] DATE CREATED AUTHOR AUTHOR'S ORGANIZ ATION 04/10/2020 [facility] DATE CREATED AUTHOR AUTHOR'S ORGANIZ ATION 05/21/2024 [facility] ([place]) DATE CREATED AUTHOR AUTHOR'S ORGANIZ ATION 01/25/[address] [facility] nter DATE CREATED AUTHOR AUTHOR'S ORGANIZ ATION 03/03/2025 [facility] DATE CREATED AUTHOR AUTHOR'S ORGANIZ ATION 04/04/2025 [facility] DATE CREATED AUTHOR AUTHOR'S ORGANIZ ATION 07/11/2025 [facility] DATE CREATED AUTHOR AUTHOR'S ORGANIZ ATION 08/09/2025 [facility] DATE CREATED AUTHOR AUTHOR'S ORGANIZ ATION 10/03/2025 [facility] Care Team (unrecognized sect ion and [...] 2025 End: February 13, 2025 Mayte Burch ENERGY ADVISOR, ENERGY ADVISOR-C Attending Provider Active Start: February 13, 2025 [...] March 10, 2025 End: March 10, 2025 Hand Icer Relationship Specialty Start Date End Date Jesus Manuel Freitas DO [address] [place] [address] PCP - General 02/21/15 Hand Icer Relationship Specialty Start Date End Date Jesus Manuel Freitas DO [address] [place] [address] PCP - General 02/21/15 Hand Icer Relationship Specialty Start Date End Date Jesus Manuel Freitas DO [address] [place] [address] PCP - General 02/21/15 Hand Icer Relationship Specialty Start Date End Date Jesus Manuel Freitas DO [address] [place] [address] PCP - General 02/21/15 Hand Icer Relationship Specialty Start Date End Date Jesus Manuel Freitas DO [address] [place] [address] PCP - General 02/21/15 Hand Icer Relationship Specialty Start Date End Date Jesus Manuel Freitas Bairon, DO [address] [place] [address] PCP - General 02/21/15 Kailyn Donald, SPICE BLENDER.RANGER AIDE [address] [facility] [facility] [place] [address] Specialty Wood Preserving Plant Laborer Neurology 09/09/22 Hand Icer Relationship Specialty Start Date End Date Fortino Jesus Manuel Bairon, DO [address] [place] [address] PCP - General 02/21/15 Kailyn Donald, SPICE BLENDER.RANGER AIDE [address] [facility] [place] [address] Specialty Wood Preserving Plant Laborer Neurology 09/09/22 Hand Icer Relationship Specialty Start Date End Date Jesus Manuel Freitas, DO [address] [place] [facility] [place] [address] PCP - General 02/21/15 Kailyn Donald, SPICE BLENDER.RANGER AIDE [address] [facility] [place] [address] Specialty Wood Preserving Plant Laborer Neurology 09/09/22 Gissell Hunt, SPICE BLENDER.RANGER AIDE [address] [facility] [place] [place] [address] Specialty Wood Preserving Plant Laborer Neurology 12/07/22 Hand Icer Relationship Specialty Start Date End Date Fortino Jesus Manuel R, DO [address] [place] [facility] [place] [address] PCP - General 02/21/15 Kailyn Donald, SPICE BLENDER.RANGER AIDE [address] [facility] [place] [address] Specialty Wood Preserving Plant Laborer Neurology 09/09/22 Gissell Hunt, SPICE BLENDER.RANGER AIDE [address] [facility] [place] [address] Specialty Wood Preserving Plant Laborer Neurology 12/07/22 Hand Icer Relationship Specialty Start Date End Date Jesus Manuel Freitas DO [address] [place] [address] PCP - General 02/21/15 Kailyn Donald, SPICE BLENDER.RANGER AIDE [address] [place] [address] Specialty Wood Preserving Plant Laborer Neurology 09/09/22 Gissell Hunt, SPICE BLENDER.RANGER AIDE [address] [place] [address] Specialty Wood Preserving Plant Laborer Neurology 12/07/22 Hand Icer Relationship Specialty Start Date End Date Jesus Manuel Freitas DO [address] [place] [address] PCP - General 02/21/15 Kailyn Donald, SPICE BLENDER.RANGER AIDE [address] [place] [address] Specialty Wood Preserving Plant Laborer Neurology 09/09/22 Gissell Hunt, SPICE BLENDER.RANGER AIDE [address] [place] [address] Specialty Wood Preserving Plant Laborer Neurology 12/07/22 Hand Icer Relationship Specialty Start Date End Date Jesus Manuel Freitas DO [address] [place] [address] PCP - General 02/21/15 Kailyn Donald, SPICE BLENDER.RANGER AIDE [address] [place] [address] Specialty Wood Preserving Plant Laborer Neurology 09/09/22 Gissell Hunt, SPICE BLENDER.RANGER AIDE [address] [place] [address] Specialty Wood Preserving Plant Laborer Neurology 12/07/22 Hand Icer Relationship Specialty Start Date End Date Jesus Manuel Freitas, [address] [place] [address] PCP - General 02/21/15 Kailyn Donald, SPICE BLENDER.RANGER AIDE [address] [place] [address] Specialty Wood Preserving Plant Laborer Neurology 09/09/22 Gissell Hunt, SPICE BLENDER.RANGER AIDE [address] [place], [place] [id number] Specialty Wood Preserving Plant Laborer Neurology 12/07/22 Hand Icer Relationship Specialty Start Date End Date Jesus Manuel Freitas DO [address] [place] [address] PCP - General 02/21/15 Kailyn Donald, SPICE BLENDER.RANGER AIDE [address] [place], [place] [id number] Specialty Wood Preserving Plant Laborer Neurology 09/09/22 Gissell Hunt, SPICE BLENDER.RANGER AIDE [address] [place], [place] [id number] Specialty Wood Preserving Plant Laborer Neurology 12/07/22 Team Status: Active Member Role Status Dates Dr. Cathy Cherry , DO Family Provider Active Dr. Adrienne Byers , DO Primary Care Provider Active Team Status: Active Member Role Status Dates Dr. Uday Orosco , DO Emergency Provider Active Dr. Adrienne Byers , DO Primary Care Provider Active Dr. Tony Corona , DO Admit Provider, Attending Pr ovidaudi Active Team Status: Active Member Role Status [...] Dr. Tony Mayer MD Other Provider Active Hand Icer Relationship Specialty Start Date End Date Jesus Manuel Freitas Bairon, DO [address] [place] [address] PCP - General 02/21/15 Kailyn Donald, SPICE BLENDER.RANGER AIDE [address] [place] [address] Specialty Wood Preserving Plant Laborer Neurology 09/09/22 Gissell Hunt, SPICE BLENDER.RANGER AIDE [address] [place] [address] Specialty Wood Preserving Plant Laborer Neurology 12/07/22 Hand Icer Relationship Specialty Start Date End Date Jesus Manuel Freitas DO [address] [place] [address] PCP - General 02/21/15 Kailyn Donald, SPICE BLENDER.RANGER AIDE [address] [place] [address] Specialty Wood Preserving Plant Laborer Neurology 09/09/22 Gissell Hunt, SPICE BLENDER.RANGER AIDE [address] [place] [address] Specialty Wood Preserving Plant Laborer Neurology 12/07/22 Team Status: Active Member Role [...] Bryan Levin , DO Attending Provider, Emergency Ba mera Active Team Status: Inactive Member Role Status [...] Provider, At tending Provider, Referring Provider Active Hand Icer Relationship Specialty Start Date End Date Jesus Manuel Freitas DO [address] [place] [address] PCP - General 02/21/15 Kailyn Donald, SPICE BLENDER.RANGER AIDE [address] [place] [address] Specialty Wood Preserving Plant Laborer Neurology 09/09/22 Gissell Hunt, SPICE BLENDER.RANGER AIDE [address] [place], [place] [id number] Specialty Wood Preserving Plant Laborer Neurology 12/07/22 Sherif Ramirez MD [address] [place] [address] Specialty Wood Preserving Plant Laborer Neurology 11/10/23 Hand Icer Relationship Specialty Start Date End Date Rick Rodas APRN - RANGER AIDE [address] [place] [address] PCP - General Nurse Practitioner 06/16/24 Hand Icer Relationship Specialty Start Date End Date Rick Rodas APRN - RANGER AIDE [address] [place] [phone] PCP - General Nurse Practitioner 06/16/24 Hand Icer Relationship Specialty Start Date End Date Rick Rodas APRN - RANGER AIDE [address] [place] [address] PCP - General Nurse Practitioner 06/16/24 Hand Icer Relationship Specialty Start Date End Date Jesus Manuel Freitas DO [address] [place] [address] PCP - General 02/21/15 Kailyn Donald, SPICE BLENDER.RANGER AIDE [address] [place] [address] Specialty Wood Preserving Plant Laborer Neurology 09/09/22 Gissell Hunt, SPICE BLENDER.RANGER AIDE [address] [place] [address] Specialty Wood Preserving Plant Laborer Neurology 12/07/22 Sherif Ramirez MD [address] [place] [address] Specialty Wood Preserving Plant Laborer Neurology 11/10/23 Hand Icer Relationship Specialty Start Date End Date Marci Lopez [address] [place] [address] PCP - General Family Medicine 07/20/24 Hand Icer Relationship Specialty Start [place] [address] [place] [id number] PCP - General 02/21/15 Kailyn Donald, SPICE BLENDER.RANGER AIDE [address] [place] [address] Specialty Wood Preserving Plant Laborer Neurology 09/09/22 Gissell Hunt, SPICE BLENDER.RANGER AIDE [address] [place] [address] Specialty Wood Preserving Plant Laborer Neurology 12/07/22 Sherif Ramirez MD [address] [place] [address] Specialty Wood Preserving Plant Laborer Neurology 11/10/23 Hand Icer Relationship Specialty Start Date End Date Rick Rodas SPICE BLENDER - RANGER [place] [phone] PCP - General Nurse Practitioner 06/16/24 07/19/24 Marci Lopez [address] [place] [address] PCP - General Family Medicine 07/20/24 Hand Icer Relationship Specialty Start Date End [place] [phone] PCP - General Family Medicine 07/20/24 Hand Icer Relationship Specialty Start Date End Date Marci Lopez [address] [place] [address] PCP - General Family Medicine 07/20/24 Hand Icer Relationship Specialty Start Date End Date Jesus Manuel Freitas DO [address] [place], [place] [address] PCP - General 02/21/15 Kailyn Donald, SPICE BLENDER.RANGER AIDE [address] [place] [address] Specialty Wood Preserving Plant Laborer Neurology 09/09/22 Gissell Hunt, SPICE BLENDER.RANGER AIDE [address] [place] [address] Specialty Wood Preserving Plant Laborer Neurology 12/07/22 Sherif Ramirez MD [address] [place], [place] [id number] Specialty Wood Preserving Plant Laborer Neurology 11/10/23 Hand Icer Relationship Specialty Start Date End [place] [address] PCP - General Family Medicine 07/20/24 Hand Icer Relationship Specialty Start Date End Date Marci Lopez [facility] [address] PCP - General Family Medicine 07/20/24 Hand Icer Relationship Specialty Start Date End Date Jesus Manuel Freitas DO [address] [place], [place] [address] PCP - General 02/21/15 Kailyn Donald, SPICE BLENDER.RANGER AIDE [address] [place] [address] Specialty Wood Preserving Plant Laborer Neurology 09/09/22 Gissell Hunt SPICE BLENDER.RANGER AIDE [address] [place] [address] Specialty Wood Preserving Plant Laborer Neurology 12/07/22 Sherif Ramirez MD [address] [place] [address] Specialty Wood Preserving Plant Laborer Neurology 11/10/23 Hand Icer Relationship Specialty Start Date End Date Jesus Manuel Freitas DO [address] [place] [address] PCP - General 02/21/15 Kailyn Donald, SPICE BLENDER.RANGER AIDE [address] [place] [address] Specialty Wood Preserving Plant Laborer Neurology 09/09/22 Gissell Hunt SPICE BLENDER.RANGER AIDE [address] [place] [address] Specialty Wood Preserving Plant Laborer Neurology 12/07/22 Sherif Ramirze MD [address] [place] [address] Specialty Wood Preserving Plant Laborer Neurology 11/10/23 Hand Icer Relationship Specialty Start Date End Date Marci Lopez [address] [place] [id number] PCP - General Family Medicine 07/20/24 Hand Icer Relationship Specialty Start Date End Date Jesus Manuel Freitas DO [address] [place], [place] [address] PCP - General 02/21/15 Kailyn Donald, SPICE BLENDER.RANGER AIDE [address] [place], [place] [id number] Specialty Wood Preserving Plant Laborer Neurology 09/09/22 Gissell Hunt, SPICE BLENDER.RANGER AIDE [address] [place] [address] Specialty Wood Preserving Plant Laborer Neurology 12/07/22 Sherif Ramirez MD [address] [place] [address] Specialty Wood Preserving Plant Laborer Neurology 11/10/23 Hand Icer Relationship Specialty Start Date End Date Jesus Manuel Freitas DO [address] [place], [place] [address] PCP - General 02/21/15 Kailyn Donald, SPICE BLENDER.RANGER AIDE [address] [place] [address] Specialty Wood Preserving Plant Laborer Neurology 09/09/22 Gissell Hunt, SPICE BLENDER.RANGER AIDE [address] [place] [address] Specialty Wood Preserving Plant Laborer Neurology 12/07/22 Sherif Ramirez MD [address] [place] [address] Specialty Wood Preserving Plant Laborer Neurology 11/10/23 Hand Icer Relationship Specialty Start Date End Date Fortino Jesus Manuelphani Knight DO [address] [place] [address] PCP - General 02/21/15 Kailyn Donald, SPICE BLENDER.RANGER AIDE [address] [place] [address] Specialty Wood Preserving Plant Laborer Neurology 09/09/22 Gissell Hunt SPICE BLENDER.RANGER AIDE [address] [place] [address] Specialty Wood Preserving Plant Laborer Neurology 12/07/22 Sherif Ramirez MD [address] [place] [address] Specialty Wood Preserving Plant Laborer Neurology 11/10/23 Hand Icer Relationship Specialty Start Date End Date Jesus Manuel Freitas DO [address] [place] [address] PCP - General 02/21/15 Kailyn Donald, SPICE BLENDER.RANGER AIDE [address] [place] [address] Specialty Wood Preserving Plant Laborer Neurology 09/09/22 Gissell Hunt SPICE BLENDER.RANGER AIDE [address] [place] [address] Specialty Wood Preserving Plant Laborer Neurology 12/07/22 Sherif Ramirez MD [address] [place] [address] Specialty Wood Preserving Plant Laborer Neurology 11/10/23 Hand Icer Relationship Specialty Start Date End Date Jesus Manuel Freitas DO [address] [place] [address] PCP - General 02/21/15 Kailyn Donald, SPICE BLENDER.RANGER AIDE [address] [place] [address] Specialty Wood Preserving Plant Laborer Neurology 09/09/22 Gissell Hunt, SPICE BLENDER.RANGER AIDE [address] [place] [address] Specialty Wood Preserving Plant Laborer Neurology 12/07/22 Sherif Ramirez MD [address] [place] [address] Specialty Wood Preserving Plant Laborer Neurology 11/10/23 Team Status: Active Member Role [...] March 10, 2025 End: March 10, 2025 Hand Icer Relationship Specialty Start Date End Date Jesus Manuel Freitas DO [address] [place] [address] PCP - General 02/21/15 Kailyn Donald, SPICE BLENDER.RANGER AIDE [address], [place] [id number] Specialty Wood Preserving Plant Laborer Neurology 09/09/22 Gissell Hunt APRN.RANGER AIDE [address] [place] [address] Specialty Wood Preserving Plant Laborer Neurology 12/07/22 Sherif Ramirez MD [address] [place] [address] Specialty Wood Preserving Plant Laborer Neurology 11/10/23 Team Status: Inactive Member Role Status Dates Dr. Marci Lopez , Primary Care Provider Ac tive Start: April 19, 2025 End: April 19, 2025 Dr. Romeo Padron , DO Emergency Provider Active Start: April 19, 2025 End: April 19, 2025 Team Status: Inactive Member Role Status Dates Dr. Marci Lopez , Primary Care Provider Ac tive Start: April [...] End: February 13, 2025 Mayte Burch NP, ENERGY ADVISOR-C Attending Provider Active Start: February 13, 2025 [...] End: February 13, 2025 Mayte Burch NP, ENERGY ADVISOR-C Attending Provider Active Start: February 13, 2025 [...] End: February 13, 2025 Mayte Burch NP, ENERGY ADVISOR-C Attending Provider Active Start: February 13, 2025 [...] May 30, 2025 End: May 30, 2025 Hand Icer Relationship Specialty Start Date End Date Marci Lopez [facility] [place] [phone] PCP - General Family Medicine 07/20/24 Team [...] Active Member Role/Relationship Status Dates Dr. Marci Lpoez , DO Primary Care Provider Ac tive [...] Active S tart: June 07, 2025 Dr. eBn Johnson , DO Other Provider Active S [...] S tart: June 11, 2025 Dr. Ben Jhonson , DO Other Provider Active S tart: [...] tart: July 01, 2025 Dr. Jose Royal , DO Admit Provider Active Star t: July 01, 2025 Dr. Jose Royal , DO Attending Provider Active Start: July 01, 2025 Team Status: Active Member Role/Relationship Status Dates Dr. Marci Lopez , DO Primary Care Provider Ac tive Start: July 01, 2025 Dr. Bossman Sanders , DO Emergency Provider Active S tart: July 01, 2025 Dr. Jose Royal , [...] tart: July 04, 2025 Dr. Jose Royal , Admit Provider Active Star t: July 04, 2025 Dr. Jose Royal DO Other Provider Active Star t: July 04, 2025 Dr. Camacho Aguilar MD Attending Provider Active Start: July 04, 2025 Dr. Camacho Aguilar MD Other Provider Active Start: July 04, 2025 Hand Icer Relationship Specialty Start Date End Date Marci Lopez DO [address] [place] [address] PCP - General Family Medicine 06/29/25 Kailyn Donald, SPICE BLENDER.RANGER AIDE [address] [place], [place] [id number] Specialty Wood Preserving Plant Laborer Neurology 09/09/22 Gissell Hunt, SPICE BLENDER.RANGER AIDE [address] [place], [place] [address] Specialty Wood Preserving Plant Laborer Neurology 12/07/22 Sherif aRmirez MD [address] [place], [place] [id number] Specialty Wood Preserving Plant Laborer Neurology 11/10/23 Team Status: Inactive Member Role/Relationship [...] July 04, 2025 Dr. Jose Royal , Admit Provider Active Star t: July 01, [...] July 19, 2025 Dr. Saul Freitas , DO Other Provider Active Start : July 19, [...] 2025 Brisa Jennings Attending Provider Active Start: eptember 2024 End: July 26, 2025 Team [...] 2025 Brisa Jennings Attending Provider Active Start: ep2024 End: July 26, 2025 Team Status: [...] End: July 25, 2025 Dr. Saul Freitas , Referring Provider Active S tart: July 25, [...] 2025 Dr. Romeo Padron , DO Emergency Departme nt Physician Active Start: April 19, 2025 End: April 20, 2025 Dr. Maximo Orosco , DO Admitting physician Active Start: April 19 End: April 20, 2025 Dr. Maximo Orosco , DO Attending physician Active Start: April 19 End: April 20, 2025 Dr. Maximo Orosco , DO Nurse Practitioner Active Start: April 19 Team Status: Active Member Role/Relationship Status Dates Dr. Marci Lopez DO Primary care physician Active Start: April 20, 2025 Dr. Romeo Padron , DO Emergency Departme nt Physician Active Start: April 20, 2025 Dr. Maximo Orosco DO Admitting physician Active Start: April 20 Dr. Maximo Orosco , Attending physician Active Start: April 20 Dr. [...] A ctive Start: April 25, 2025 Dr. Maric Lopez DO Referring Provider Activ e Start: [...] 05, 2025 Dr. Ben Johnson , DO Admitting physician Active Start: June 05, 2025 [...] 07, 2025 Dr. Ben Johnson , DO Admitting physician Active Start: June 07, 2025 Dr. Ben Johnson , DO Nurse Practitioner Active Start: June 07, 2025 Dr. Ganesh Kiran MD Referring Provider Active Start: June 07, 2025 Dr. Ganesh Kiran MD Nurse Practitioner Active Start: June 07, 2025 Dr. Shan Lockett DO Attending physician Active Start: June 07, 2025 Dr. Shan Lockett , DO Nurse Practitioner Active Start: June 07, 2025 Team Status: Active Member Role/Relationship Status Dates Dr. Marci Lopez , DO Primary care physician Active Start: June 07, 2025 Dr. Bossman Sanders , DO Emergency Departmen t Physician Active Start: June 07, 2025 Dr. Ben Johnson , DO Admitting physician Active Start: June 07, [...] Start: June 08, 2025 Dr. Shan Lockett , DO Nurse Practitioner Active Start: June 08, 2025 Team Status: Active Member Role/Relationship Status Dates Dr. Marci Lopez DO Primary care physician Active Start: June 09, 2025 Dr. Bossman Sanders , DO Emergency Departmen t Physician Active Start: June 09, 2025 Dr. Ben Johnson DO Admitting physician Active Start: June 09, 2025 Dr. Ben Johnson , DO Nurse Practitioner Active Start: June 09, [...] Active Start: June 11, 2025 Dr. Ben Jonhson DO Nurse Practitioner Active Start: June 11, [...] 29, 2025 End: May 29, 2025 Kaykay ROWLEY PA Attending physician Active Start: May 29, [...] , Primary care physician Active Start: June 02, [...] June 02, 2025 Dr. Ben Johnson , Admitting physician [...] June 03, 2025 Dr. Ben Johnson , Admitting physician Active Start: June 03, 2025 [...] Start: June 04, 2025 Dr. Ben Johnson DO Admitting physician Active Start: June 04, [...] 05, 2025 Dr. Ben Johnson , DO Admitting physician Active Start: June 05, 2025 [...] 06, 2025 Dr. Ben Johnson , DO Admitting physician Active Start: June 06, [...] 2025 Dr. Shan Lockett , DO Attending physician Active Start: June 07, 2025 Dr. Shan Lockett , DO Nurse Practitioner Active Start: June 07, 2025 Team Status: Active Member Role/Relationship Status Dates Dr. Marci Lopez DO Primary care physician Active Start: June 07, 2025 Dr. Bossman Sanders , DO Emergency Departmen t Physician Active Start: June 07, 2025 Dr. Ben Johnson , DO Admitting physician Active Start: June 07, 2025 Dr. Ben Tereletsky , DO Nurse [...] Start: June 08, 2025 Dr. Ben Johnson , Nurse Practitioner Active Start: June 08, 2025 [...] Active Start: June 09, 2025 Dr. Ganesh Krian MD Nurse Practitioner Active Start: June 09, 2025 Dr. Shan Lockett , Nurse Practitioner Active Start: June 09, [...] Start: June 10, 2025 Dr. Shan Lockett , Nurse Practitioner Active Start: June 10, 2025 [...] August 29, 2025 End: August 29, 2025 Hand Icer Relationship Specialty Start Date End Date Marci [place] [address] PCP - General Family Medicine 07/20/24 Team Status: Inactive Member Role/Relationship Status Dates [...] June 04, 2025 Dr. Ben Johnson , Admitting physician Active Start: June 04, 2025 [...] Start: June 05, 2025 Dr. Ben Johnson DO Admitting physician Active Start: June 05, 2025 Dr. Ben Johnson , DO Attending physician Active Start: June 05, 2025 Dr. Ben Johnson , DO Nurse Practitioner Active Start: June 05, 2025 Team Status: Active Member Role/Relationship Status Dates Dr. Marci Lopez DO Primary care physician Active Start: June 06, 2025 Dr. Bossman Sanders DO Emergency Departmen t Physician Active Start: June 06, 2025 Dr. Ben Johnson DO Admitting physician Active Start: June 06, 2025 Dr. Ben Johnson DO Nurse Practitioner Active Start: June 06, 2025 Dr. Ganesh Kiran MD Attending physician Active Start: June 06, 2025 Dr. Ganesh Kiran MD Nurse Practitioner Active Start: June 06, 2025 Team Status: Active Member Role/Relationship Status Dates Dr. Marci Lopez DO Primary care physician Active Start: June 07, 2025 Dr. Bossman Sanders DO Emergency Departmen [...] 07, 2025 Dr. Bossman Sanders DO Emergency Departmen [...] physician Active Start: June 08, 2025 Dr. Remus Ungur , DO Emergency Departmen t Physician Active Start: June 08, 2025 Dr. Ben Johnson , DO Admitting physician Active Start: June 08, 2025 Dr. Ben Johnson , DO Nurse Practitioner Active Start: June 08, 2025 Dr. Ganesh Kiran MD Attending physician Active Start: June 08, 2025 Dr. Ganesh Kiran MD Nurse Practitioner Active Start: June 08, 2025 Dr. Shan Lockett , DO Nurse Practitioner Active Start: June 08, 2025 Team Status: Active Member Role/Relationship Status Dates Dr. Marci Lopez DO Primary care physician Active Start: June 09, 2025 Dr. Bossman Sanders , DO Emergency Departmen t Physician Active Start: June 09, 2025 Dr. Ben Johnson , DO Admitting physician Active Start: June 09, 2025 Dr. Ben Johnson DO Nurse Practitioner Active Start: June 09, 2025 Dr. Ganesh Kiran MD Attending physician Active Start: June 09, 2025 Dr. Ganesh Kiran MD Nurse Practitioner Active Start: June 09, 2025 Dr. Shan Lockett , DO Nurse Practitioner Active Start: June 09, [...] Start: June 10, 2025 Dr. Shan Lockett , DO Nurse Practitioner Active Start: June 10, [...] Active Start: July 03, 2025 Dr. Jose Ryoal DO Nurse Practitioner Active Start: July 03, 2025 Dr. Camacho Aguilar MD Attending physician Active Start: July 03, 2025 Dr. Camacho Aguilar MD Nurse Practitioner Active Start: July 03, 2025 Team Status: Active Member Role/Relationship Status Dates Dr. Marci Lopez DO Primary care physician Active Start: June Dr. Bossman Sanders , DO Emergency Departmen [...] July 19, 2025 Dr. Saul Freitas , Nurse Practitioner Active S tart: July 19, [...] 2025 End: July 25, 2025 Team Status: Active Member Role/Relationship Status Dates Dr. Marci Lopez DO Primary care physician Active Start: July 25, 2025 Dr. Saul Freitas DO Attending physician Active Start: July 25, 2025 Dr. Saul Freitas DO [...] August 29, 2025 End: August 29, 2025 Team Status: Inactive Member Role/Relationship Status Dates Dr. Marci Lopez DO Primary care physician A ctive Start: September 03, 2025 End: September 03, 2025 Dr. Marci Lopez DO Referring Provider Activ e Start: September 03, 2025 End: September 03, 2025 Dr. Angelita Garcia MD Attending physician Active Start: September 03, 2025 End: September 03, 2025 Team Status: Inactive Member Role/Relationship Status Dates Dr. Marci Lopez DO Primary care physician Active Start: September 162024 End: September 17, 2025 Dr. Tasia Etienne MD Emergency Departup health system Physician Active Start: September 16, 2025 End: September 17, 2025 Source Comments (unrecognize d section and content) In the event this informatio n is protected by the Federal Confidentiality of Alcohol and Drug Abuse Patient Records regulations: The Federal rules restrict any use of the information to criminally investigate or prosecute any alcohol or drug abuse patient.[facility] the event this information is protected by the Federal Confidentiality of Alcohol and Drug Abuse Patient Records regulations: The Federal rules restrict any use of the information to criminally investigate or prosecute any alcohol or drug abuse patient.[facility] HospitalIn the event this information is protected by the Federal Confidentiality of Alcohol and Drug Abuse Patient Records regulations: The Federal rules restrict any use of the information to criminally investigate or prosecute any alcohol or drug abuse patient.[facility] the event this information is protected by the Federal Confidentiality of Alcohol and Drug Abuse Patient Records regulations: The Federal rules restrict any use of the information to criminally investigate or prosecute any alcohol or drug abuse patient.[facility] HospitalIn the event this information is protected by the Federal Confidentiality of Alcohol and Drug Abuse Patient Records regulations: The Federal rules restrict any use of the information to criminally investigate or prosecute any alcohol or drug abuse patient.[facility] HospitalIn the event this information is protected by the Federal Confidentiality of Alcohol and Drug Abuse Patient Records regulations: The Federal rules restrict any use of the information to criminally investigate or prosecute any alcohol or drug abuse patient.[facility] HospitalIn the event this information is protected by the Federal Confidentiality of Alcohol and Drug Abuse Patient Records regulations: The Federal rules restrict any use of the information to criminally investigate or prosecute any alcohol or drug abuse patient.[facility] HospitalIn the event this information is protected by the Federal Confidentiality of Alcohol and Drug Abuse Patient Records regulations: The Federal rules restrict any use of the information to criminally investigate or prosecute any alcohol or drug abuse patient.[facility] HospitalIn the event this information is protected by the Federal Confidentiality of Alcohol and Drug Abuse Patient Records regulations: The Federal rules restrict any use of the information to criminally investigate or prosecute any alcohol or drug abuse patient.[facility] HospitalIn the event this information is protected by the Federal Confidentiality of Alcohol and Drug Abuse Patient Records regulations: The Federal rules restrict any use of the information to criminally investigate or prosecute any alcohol or drug abuse patient.[facility] HospitalIn the event this information is protected by the Federal Confidentiality of Alcohol and Drug Abuse Patient Records regulations: The Federal rules restrict any use of the information to criminally investigate or prosecute any alcohol or drug abuse patient.[facility] HospitalIn the event this information is protected by the Federal Confidentiality of Alcohol and Drug Abuse Patient Records regulations: The Federal rules restrict any use of the information to criminally investigate or prosecute any alcohol or drug abuse patient.[facility] HospitalIn the event this information is protected by the Federal Confidentiality of Alcohol and Drug Abuse Patient Records regulations: The Federal rules restrict any use of the information to criminally investigate or prosecute any alcohol or drug abuse patient.[facility] HospitalIn the event this information is protected by the Federal Confidentiality of Alcohol and Drug Abuse Patient Records regulations: The Federal rules restrict any use of the information to criminally investigate or prosecute any alcohol or drug abuse patient.[facility] HospitalIn the event this information is protected by the Federal Confidentiality of Alcohol and Drug Abuse Patient Records regulations: The Federal rules restrict any use of the information to criminally investigate or prosecute any alcohol or drug abuse patient.[facility] HospitalIn the event this information is protected by the Federal Confidentiality of Alcohol and Drug Abuse Patient Records regulations: The Federal rules restrict any use of the information to criminally investigate or prosecute any alcohol or drug abuse patient.[facility] HospitalIn the event this information is protected by the Federal Confidentiality of Alcohol and Drug Abuse Patient Records regulations: The Federal rules restrict any use of the information to criminally investigate or prosecute any alcohol or drug abuse patient.[facility] HospitalIn the event this information is protected by the Federal Confidentiality of Alcohol and Drug Abuse Patient Records regulations: The Federal rules restrict any use of the information to criminally investigate or prosecute any alcohol or drug abuse patient.[facility] HospitalIn the event this information is protected by the Federal Confidentiality of Alcohol and Drug Abuse Patient Records regulations: The Federal rules restrict any use of the information to criminally investigate or prosecute any alcohol or drug abuse patient.[facility] HospitalIn the event this information is protected by the Federal Confidentiality of Alcohol and Drug Abuse Patient Records regulations: The Federal rules restrict any use of the information to criminally investigate or prosecute any alcohol or drug abuse patient.[facility] HospitalIn the event this information is protected by the Federal Confidentiality of Alcohol and Drug Abuse Patient Records regulations: The Federal rules restrict any use of the information to criminally investigate or prosecute any alcohol or drug abuse patient.[facility] HospitalIn the event this information is protected by the Federal Confidentiality of Alcohol and Drug Abuse Patient Records regulations: The Federal rules restrict any use of the information to criminally investigate or prosecute any alcohol or drug abuse patient.[facility] HospitalIn the event this information is protected by the Federal Confidentiality of Alcohol and Drug Abuse Patient Records regulations: The Federal rules restrict any use of the information to criminally investigate or prosecute any alcohol or drug abuse patient.[facility] HospitalIn the event this information is protected by the Federal Confidentiality of Alcohol and Drug Abuse Patient Records regulations: The Federal rules restrict any use of the information to criminally investigate or prosecute any alcohol or drug abuse patient.[facility] HospitalIn the event this information is protected by the Federal Confidentiality of Alcohol and Drug Abuse Patient Records regulations: The Federal rules restrict any use of the information to criminally investigate or prosecute any alcohol or drug abuse patient.[facility] HospitalIn the event this information is protected by the Federal Confidentiality of Alcohol and Drug Abuse Patient Records regulations: The Federal rules restrict any use of the information to criminally investigate or prosecute any alcohol or drug abuse patient.[facility] HospitalIn the event this information is protected by the Federal Confidentiality of Alcohol and Drug Abuse Patient Records regulations: The Federal rules restrict any use of the information to criminally investigate or prosecute any alcohol or drug abuse patient.[facility] HospitalIn the event this information is protected by the Federal Confidentiality of Alcohol and Drug Abuse Patient Records regulations: The Federal rules restrict any use of the information to criminally investigate or prosecute any alcohol or drug abuse patient.[facility] HospitalIn the event this information is protected by the Federal Confidentiality of Alcohol and Drug Abuse Patient Records regulations: The Federal rules restrict any use of the information to criminally investigate or prosecute any alcohol or drug abuse patient.[facility] HospitalIn the event this information is protected by the Federal Confidentiality of Alcohol and Drug Abuse Patient Records regulations: The Federal rules restrict any use of the information to criminally investigate or prosecute any alcohol or drug abuse patient.[facility] HospitalIn the event this information is protected by the Federal Confidentiality of Alcohol and Drug Abuse Patient Records regulations: The Federal rules restrict any use of the information to criminally investigate or prosecute any alcohol or drug abuse patient.[facility] HospitalIn the event this information is protected by the Federal Confidentiality of Alcohol and Drug Abuse Patient Records regulations: The Federal rules restrict any use of the information to criminally investigate or prosecute any alcohol or drug abuse patient.[facility] HospitalIn the event this information is protected by the Federal Confidentiality of Alcohol and Drug Abuse Patient Records regulations: The Federal rules restrict any use of the information to criminally investigate or prosecute any alcohol or drug abuse patient.[facility] HospitalIn the event this information is protected by the Federal Confidentiality of Alcohol and Drug Abuse Patient Records regulations: The Federal rules restrict any use of the information to criminally investigate or prosecute any alcohol or drug abuse patient.[facility] HospitalIn the event this information is protected by the Federal Confidentiality of Alcohol and Drug Abuse Patient Records regulations: The Federal rules restrict any use of the information to criminally investigate or prosecute any alcohol or drug abuse patient.[facility] HospitalIn the event this information is protected by the Federal Confidentiality of Alcohol and Drug Abuse Patient Records regulations: The Federal rules restrict any use of the information to criminally investigate or prosecute any alcohol or drug abuse patient.[facility] HospitalIn the event this information is protected by the Federal Confidentiality of Alcohol and Drug Abuse Patient Records regulations: The Federal rules restrict any use of the information to criminally investigate or prosecute any alcohol or drug abuse patient.[facility] HospitalIn the event this information is protected by the Federal Confidentiality of Alcohol and Drug Abuse Patient Records regulations: The Federal rules restrict any use of the information to criminally investigate or prosecute any alcohol or drug abuse patient.[facility] HospitalIn the event this information is protected by the Federal Confidentiality of Alcohol and Drug Abuse Patient Records regulations: The Federal rules restrict any use of the information to criminally investigate or prosecute any alcohol or drug abuse patient.[facility] HospitalIn the event this information is protected by the Federal Confidentiality of Alcohol and Drug Abuse Patient Records regulations: The Federal rules restrict any use of the information to criminally investigate or prosecute any alcohol or drug abuse patient.[facility] HospitalIn the event this information is protected by the Federal Confidentiality of Alcohol and Drug Abuse Patient Records regulations: The Federal rules restrict any use of the information to criminally investigate or prosecute any alcohol or drug abuse patient.[facility] HospitalIn the event this information is protected by the Federal Confidentiality of Alcohol and Drug Abuse Patient Records regulations: The Federal rules restrict any use of the information to criminally investigate or prosecute any alcohol or drug abuse patient.[facility] Reason for Visit (unrecogniz ed section and content) Reason Onset Date Comments Question 02/05/2022 medication Reason Onset Date Comments Refill Request 05/01/2022 Reason Comments Follow Up Reason Comments New Patient tremor of left hand Specialty Diagnoses / Procedures Referred By Contac t Referred To Contact Neurology Diagnoses Tremor of left hand Procedures CONSULT TO NEUROLOGY OFFICE/OUTPATIENT [facility] [employer] [facility] 60-74 MINUTES Ghazala Gusman MD [address] [place] [address] Referral ID Status Reason Start Date Expiration Date V isits Requested Visits Authorized [id number] Closed PCP Requested Referral 06/04/2022 06/04/2023 1 1 Reason Comments Established Patient Specialty Diagnoses / Procedures Referred By Contac t Referred To Contact Diagnoses Tremor of left hand Procedures PROVIDER ORDERED FOLLOW UP OFFICE/OUTPATIENT [employer] [facility] 60-74 MINUTES Sherif Ramirez MD [address] [place] [address] Referral ID Status Reason Start Date Expiration Date V isits Requested Visits Authorized [id number] Closed PCP Requested Referral 06/23/2022 06/23/2023 1 [...] AREA 1 DAY IMAGING Sherif Ramirez MD [address] [place] [address] [facility] [address] [place] [address] Referral ID Status Reason Start Date Expiration Date V isits Requested Visits Authorized [id number] Closed Auto-Generate d Referral 07/01/2023 07/30/2024 1 1 Reason Comments Established Patient Reason Onset Date Comments Other 06/28/2024 [place] Document ation Reason Onset Date Comments Release [...] OFFICE SCHEDULED ORDER IN SCANNED DOCS AUTH# [id number] GOOD 08/01/24-09/30/[address] ATTENUATION SKULL BASE MID-THIGH PET CT Kalen Izaguirre MD [address] [facility] [address] [place] [address] [employer] [address] [facility] [place] [address] Referral ID Status Reason Start Date Expiration Date Visits Re quested Visits Authorized [id number] Closed 08/01/2024 09/30/2024 1 1 Reason Onset [...] Role: Primary Care Physician Address: Address: [address] [place] [address] Name: JAC CHRISTENSEN MD Position: P4 Physician - Cardiology Med Service: Active Provider Member Role: Security Operations Analyst Address: Address: [address] [place] [address] Care Team Related Persons Name: SONG PENA Address: Home [address] [place] [id number] Care Team Personnel Name: LARY WHEAT DO Position: P4 Physician - Primary Care Med Service: Active Provider Member Role: Primary Care Physician Address: Address: [address] [place] [address] Name: JAC CHRISTENSEN MD Position: P4 Physician - Cardiology Med Service: Active Provider Member Role: Security Operations Analyst Address: Address: [address] [place] [address] Care Team Related Persons Name: SONG PENA Address: Home [address] [place], [place] [id number] Care Team Personnel Name: LARY WHEAT DO Position: P4 Physician - Primary Care Med Service: Active Provider Member Role: Primary Care Physician Address: Address: [address] [place] [address] Name: JAC CHRISTENSEN MD Position: P4 Physician - Cardiology Med Service: Active Provider Member Role: Security Operations Analyst Address: Address: [address] [place] [address] [address] [place] [address]- Care Team Related Persons Name: SONG PENA Address: Home [address] [place], [place] [id number] Care Team Personnel Name: LARY WHEAT DO Position: P4 Physician - Primary Care Med Service: Active Provider Member Role: Primary Care Physician Address: Address: [facility] [place] [address]- [place] Name: JAC CHRISTENSEN MD Position: P4 Physician - Cardiology Med Service: Active Provider Member Role: Security Operations Analyst Address: Address: [address] [facility] [address] [id number]- Care Team Related Persons Name: JEANSONG Address: Home [address] [place], [place] [id number] Care Team Personnel Name: LARY WHEAT DO Position: P4 Physician - Primary Care Member Role: Primary Care Physician Address: Address: [address] [place] [address]- [place] Name: JAC CHRISTENSEN MD Position: P4 Physician - Cardiology Address: Address: [facility] [address] [id number]- Care Team Related Persons Name: PENASONG MIJARES Address: Home [address] [place], [place] [id number] Care Team Personnel Name: LARY WHEAT DO Position: P4 Physician - Primary Care Med Service: Active Provider Member Role: Primary Care Physician Address: Address: [address] [place] [address]- Name: JAC CHRISTENSEN MD Position: P4 Physician - Cardiology Med Service: Active Provider Member Role: Security Operations Analyst Address: Address: [address] [place] [id number]- Care Team Related Persons Name: CHINA PENANN Address: Home [address] [place] [id number] Care Team Personnel Name: LARY WHEAT DO Position: P4 Physician - Primary Care Med Service: Active Provider Member Role: Primary Care Physician Address: Address: [address] [place] [address]- Name: JAC CHRISTENSEN MD Position: P4 Physician - Cardiology Med Service: Active Provider Member Role: Security Operations Analyst Address: Address: [address] [facility] [address] [place] [id number]- Care Team Related Persons Name: SONG PENA Address: Home [address] [place], [place] [id number] Care Team Personnel Name: LARY WHEAT DO Position: P4 Physician - Primary Care Member Role: Primary Care Physician Address: Address: [address] [place] [address]- Name: JAC CHRISTENSEN MD Position: P4 Physician - Cardiology Member Role: Security Operations Analyst Address: Address: [address] [facility] [address] [place] [id number]- Care Team Related Persons Name: SONG PENA Address: Home [address] [place], [place] [id number] Care Team Personnel Name: LARY WHEAT DO Position: P4 Physician - Primary Care Member Role: Primary Care Physician Address: Address: [address] [place] [address]- Name: JAC CHRISTENSEN MD Position: P4 Physician - Cardiology Member Role: Security Operations Analyst Address: Address: [address] [facility] [address] [place] [address]- Care Team Related Persons Name: SONG PENA Address: Home [address] [place] [place], [place] [phone] Care Team Personnel Name: LARY WHEAT DO Position: P4 Physician - Primary Care Member Role: Primary Care Physician Address: Address: [facility] [place] [address]- Name: JAC CHRISTENSEN MD Position: P4 Physician - Cardiology Member Role: Security Operations Analyst Address: Address: [address] [facility] [address] [address]- [place] Care Team Related Persons Name: PENASONG Address: Home [address] [place], [place] [id number] Care Team Personnel Name: LARY WHEAT DO Position: P4 Physician - Primary Care Member Role: Primary Care Physician Address: Address: [address] [place] [address]- Name: JAC CHRISTENSEN MD Position: P4 Physician - Cardiology Member Role: Security Operations Analyst Address: Address: [address] [facility] [address] [id number]- Care Team Related Persons Name: SONG PENA Address: Home [address] [place] [id number] Care Team Personnel Name: LARY WHEAT DO Position: P4 Physician - Primary Care Member Role: Primary Care Physician Address: Address: [address] [place] [address]- Name: JAC CHRISTENSEN MD Position: P4 Physician - Cardiology Member Role: Security Operations Analyst Address: Address: [address] [place], [place] [id number]- Care Team Related Persons Name: SONG PENA Address: Home [address] [place], [place] [id number] Care Team Personnel Name: LARY WHEAT DO Position: P4 Physician - Primary Care Member Role: Primary Care Physician Address: Address: [address] [place] [address]- Name: JAC CHRISTENSEN MD Position: P4 Physician - Cardiology Member Role: Security Operations Analyst Address: Address: [address] [place], [place] [id number]- Care Team Related Persons Name: SONG PENA Address: Home [address] [place], [place] [id number] Care Team Personnel Name: ADRIENNE BYERS DO Position: P4 Physician - Primary Care Member Role: Primary Care Physician Address: Address: [address] [facility] [place] [address]- [place] Name: JAC CHRISTENSEN MD Position: P4 Physician - Cardiology Member Role: Security Operations Analyst Address: Address: [address] [facility] [address] [facility] [place] [address]- Care Team Related Persons Name: SONG PENA Address: Home [address] [place], [place] [id number] Goals (unrecognized section and content) Goals may [...] BE BASED ON THE PRIMARY CLINICAL RECORDS. [employer] provides no warranty or guarantee of the accuracy or completeness of information in this document.
== END | disposition home or self-care (01) ==
PROVIDERS: PCP Family Medicine; Referring Provider Nurse Practitioner Acute Care; Visit Provider Nurse Practitioner Acute Care
DX: G47.10 Hypersomnia, unspecified (principal)
CPT/HCPCS: 95810

== ENCOUNTER → 2025-10-26 | Outpatient (CLI) | payer MEDICARE, SELFPAY ==
--- NOTE | 2025-10-26 13:30 | RAD_ITS ---
PROCEDURE: ABD INC DECUB AND/OR ERECT 10/26/2025 REASON FOR EXAM: CONSTIPATION TECHNIQUE: Procedure Code: [id number] Modality: DX Procedure: ABD INC DECUB AND/OR ERECT COMPARISON: None FINDINGS: KUB with three views. Cardiac wires are noted. There is a nonobstructive bowel gas pattern. There is no definite renal stone. Phleboliths are noted in the pelvis. There is no acute bony abnormality. There is no visible atherosclerosis. RAD/[employer]d [employer] Decub and/or Erect IMPRESSION: Nonobstructive bowel gas pattern. Reading Location: [facility]
== END | disposition home or self-care (01) ==
LOC: RAD 13:10
PROVIDERS: PCP Family Medicine; Referring Provider Student in an Organized Health Care Education/Training Program; Visit Provider Student in an Organized Health Care Education/Training Program
DX: R19.7 Diarrhea, unspecified (principal); K59.00 Constipation, unspecified
CPT/HCPCS: 74019

== ENCOUNTER 2025-11-08 11:24 | Emergency (ER) | payer MEDICARE, SELFPAY ==
[2025-11-08 11:24] VITALS: BP 141/55; PULSE 82; RESP 14; TEMP 36.1; O2SAT 98; BMI 18.1
--- NOTE | 2025-11-08 12:21 | EX.ED.DYSGE1 ---
HPI History of Present Illness Chief Complaint: Abd Pain Narrative Narrative: Chief complaint and HPI: 70-year-old female with chronic abdominal pain presents for evaluation of abdominal pain. Patient states she has a history of chronic abdominal pain in which she takes narcotics and follows with GI and multiple other physicians. She states she chronically suffers from nausea and intermittent diarrhea/constipation. Patient states over the past 2 days she has been having worsening left lower quadrant abdominal pain. She denies any fever, chills, shortness of breath, chest pain. States she has chronic dysuria. Review of systems: See HPI Medications: As listed on the chart Allergies: As listed on the chart PFSH: Per chart Vital signs: As listed on the chart. Reviewed. Physical exam: Gen: Alert and oriented, NAD, slow to respond given her previous CVA Head: Normocephalic, atraumatic Eyes: No sclera icterus, conjunctiva clear ENT: Moist mucous membranes Neck: Trachea midline CV: RRR, no murmurs, no peripheral edema Resp: Lungs CTA BL, no w/r/c GI: Abd soft, non-distended, tender to palpation left lower quadrant, + voluntary guarding, no rebound or rigidity : No CVA tenderness Musc: Full ROM, no deformity Skin: Warm, dry Psych: Cooperative, appropriate mood and affect [facility] History Nocturia Long COVID Duodenal stenosis Pneumonia Dyspnea Back pain History of Holter monitoring History of stress test History of echocardiogram Cardiology follow-up encounter Ischemic colitis History of left heart catheterization History of mechanical ventilation Cardiogenic pulmonary edema Acute hypoxic respiratory failure Multiple lung nodules Major depressive disorder Left bundle branch block NSTEMI (non-ST elevated myocardial infarction) Diabetic peripheral vascular disease Diabetic nephropathy Chronic kidney disease (CKD) Bleeding ulcer Dyslipidemia Chronic systolic heart failure Pacemaker Congestive heart failure (CHF) Cerebral palsy Anxiety and depression Heart failure with reduced ejection fraction GERD (gastroesophageal reflux disease) Insomnia Transient ischemic attack AV node dysfunction Ischemic cardiomyopathy Presence of biventricular implantable cardioverter-defibrillator Ulcer Restless legs High cholesterol Anxiety Former smoker ICD (implantable cardioverter-defibrillator) in place Coronary artery disease CVA (cerebral vascular accident) PFO (patent foramen ovale) Cardiac resynchronization therapy defibrillator ([employer]) in place Myocarditis Hyperlipidemia Hypertension Home Medications ?Medication ?Instructions ?Recorded ?Last Taken ?Type aspirin 81 mg tablet,delayed 81 mg PO SUTUTHSA heart 10/01/23 11/06/25 History release rosuvastatin 20 mg tablet 20 mg PO QHS cholesterol 02/21/24 11/07/25 History furosemide 20 mg tablet 20 mg PO QDAY PRN for 2lb weight 06/13/24 06/19/24 History gain escitalopram oxalate 5 mg tablet 5 mg PO QDAY Mood 11/28/24 11/07/25 History lamotrigine 100 mg tablet 100 mg PO QDAY Anxiety 01/23/25 11/07/25 History ferrous sulfate 325 mg (65 mg 325 mg PO QDAY Supplement 02/13/25 11/07/25 History iron) tablet (Feosol) pantoprazole 40 mg tablet,delayed 40 mg PO DAILY 30 days #30 tabs 04/30/25 11/07/25 Rx release baclofen 5 mg tablet 5 mg PO DAILY SPASCITY 05/29/25 11/07/25 History albuterol sulfate 90 mcg/actuation 1 puff inhalation Q6H PRN PRN 07/01/25 Unknown History aerosol inhaler shortness of breath or wheezing metformin 500 mg tablet 500 mg PO QDAY Diabetes 07/12/25 11/07/25 History trazodone 50 mg tablet 50 mg PO DAILY Anxiety 07/12/25 11/07/25 History fluticasone propionate 50 1 spray intranasal QDAY 09/03/25 Unknown History mcg/actuation nasal spray,suspension (Flonase Allergy Relief) phenazopyridine 100 mg tablet 100 mg PO TID PRN pain #90 tabs 09/07/25 Unknown Rx (Pyridium) cetirizine 10 mg tablet (All Day 10 mg PO DAILY 11/08/25 11/07/25 History Allergy (cetirizine)) cholecalciferol (vitamin D3) 25 25 mcg PO DAILY PRN . 11/08/25 Unknown History mcg (1,000 unit) capsule clonazepam 0.5 mg tablet 0.5 mg PO DAILY 11/08/25 11/07/25 History docusate sodium 250 mg capsule 250 mg PO DAILY 11/08/25 11/07/25 History linaclotide 145 mcg capsule 145 mcg PO DAILY 11/08/25 11/07/25 History (Linzess) oxycodone 5 mg tablet 5 mg PO BID PRN PRN severe pain 11/08/25 Unknown History Allergy/AdvReac Type Severity Reaction Status Date / Time No Known Allergies Allergy Verified 11/08/25 11:25 Family History Father Heart disease Myocardial infarction Mother Anxiety and depression Suicide and self-inflicted injury from suicide age 52. Surgical History History of cardiac catheterization Presence of stent in coronary artery History of bilateral cataract extraction History of skin surgery S/P colon polypectomy History of cardiac defibrillator placement History of cholecystectomy History of coronary artery stent placement Social History household members: spouse Smoking Status: Former smoker how long ago did patient quit smokin-1.5 ppd from teen until quit in 2008. alcohol intake: never substance use type: does not use caffeine: Yes seatbelt use: always do you feel safe at home: Yes additional social history: - [employer] EXAM Physical Exam Const Vital Signs: 11/08/25 11:24 11/08/25 13:24 Temperature 96.9 F L Temperature Source Temporal Pulse Rate 82 77 Respiratory Rate 14 16 Blood Pressure 141/55 H 127/78 H Blood Pressure Mean 83 94 Pulse Ox 98 98 Oxygen Delivery Method Room Air Room Air MDM MDM MDM Narrative Medical decision making narrative: 70-year-old female with chronic abdominal pain presents for evaluation of abdominal pain. Patient states she has a history of chronic abdominal pain in which she takes narcotics and follows with GI and multiple other physicians. She states she chronically suffers from nausea and intermittent diarrhea/constipation. Chronic dysuria. Patient states over the past 2 days she has been having worsening left lower quadrant abdominal pain. Differential diagnosis includes but is not limited to diverticulitis, colitis, UTI, pyelonephritis. NS bolus, morphine, Zofran ordered. Laboratory workup ordered including CT abdomen pelvis. CBC without leukocytosis. Patient has baseline anemia of 10.1. Platelets unremarkable. CMP unremarkable except for hyperglycemia. Patient is a known diabetic. No transaminitis. Lipase unremarkable. UA positive for UTI. Urine culture sent. On previous cultures, patient is positive for Pseudomonas. Sensitive to Levaquin. First dose of Levaquin ordered here. CT abdomen pelvis shows status post cholecystectomy with mild dilation of the common bile duct mildly dilated central intrahepatic biliary ducts. Stable left renal cyst. Patient not having any epigastric or upper abdominal pain. Pancreatic calcifications suggestive of chronic pancreatitis. Sigmoid diverticulosis without diverticulitis. At this point in time, I suspect patient's symptoms are secondary to UTI. She was educated on taking Tylenol as needed for pain. [id number] Azo. Take all of your antibiotics. Follow-up with primary care physician. She confirmed understand the plan. Patient one to discharge home. Impression: 1. UTI 2. Lower abdominal pain Lab Data Labs: Laboratory Results - last 24 hr 11/08/25 11/08/25 12:17 13:40 WBC 6.5 RBC 3.34 L Hgb 10.1 L Hct 31.8 L MCV 95.2 MCH 30.2 MCHC 31.8 L RDW Std Deviation 47.8 H RDW Coeff of Edita 13.6 Plt Count 176 MPV 11.0 Immature Gran % (Auto) 0.300 Neut % (Auto) 74.4 H Lymph % (Auto) 15.1 L [place] % (Auto) 7.9 Eos % (Auto) 1.7 Baso % (Auto) 0.6 Absolute Neuts (auto) 4.8 Absolute Lymphs (auto) 0.98 Nucleated RBC % 0 Sodium 138 Potassium 4.1 Chloride 102 Carbon Dioxide 24.3 Anion Gap 11 BUN 17 Creatinine 1.15 Estim Creat Clear Calc 37.70 L Est GFR (MDRD) Non-Af 51 L BUN/Creatinine Ratio 14.4 Glucose 216 H Lactic Acid 1.9 Calcium 9.2 Total Bilirubin 0.26 AST 19 ALT 6 Alkaline Phosphatase 66 Total Protein 7.6 Albumin 3.6 Globulin 4.0 Albumin/Globulin Ratio 0.9 Lipase 21 Urine Color Yellow Urine Clarity Clear Urine pH 6.0 Ur Specific [place] 1.015 Urine Protein 30 H Urine Glucose (UA) Normal Urine Ketones Negative Urine Occult Blood 10 H Urine Nitrite Positive H Urine Bilirubin Negative Urine Urobilinogen Normal Ur Leukocyte Esterase 100 H Urine RBC 0-5 SEEN Urine WBC 25-50 SEEN Ur Squamous Epith Cells 5-10 SEEN Urine Bacteria 2+ Urine Mucus 0 SEEN Radiography Diagnostic Testing: Clinical Impression(s) from Imaging Studies Abdomen/Pelvis CT 11/08/25 13:04 IMPRESSION: Status post cholecystectomy with mild dilatation of the common bile duct and mildly dilated central intrahepatic biliary ducts. Stable left renal cysts. Pancreatic calcification suggestive of chronic pancreatitis. Sigmoid diverticulosis. Reading Location: [id number] Discharge Plan Triage Chief Complaint: Abd Pain ED Provider: Jeffrey Justice Dx/Rx/DC Orders Prescriptions: No Action furosemide 20 mg tablet 20 mg PO QDAY PRN (Reason: for 2lb weight gain) metformin 500 mg tablet 500 mg PO QDAY lamotrigine 100 mg tablet 100 mg PO QDAY escitalopram oxalate 5 mg tablet 5 mg PO QDAY baclofen 5 mg tablet 5 mg PO DAILY Patient Comments: PRESCRIPTION FOR 4 TIMES DAILY ferrous sulfate [Feosol] 325 mg (65 mg iron) tablet 325 mg PO QDAY fluticasone propionate [Flonase Allergy Relief] 50 mcg/actuation spray,suspension 1 spray intranasal QDAY Rx Instructions: administer into each nostril trazodone 50 mg tablet 50 mg PO DAILY aspirin 81 mg tablet,delayed release (DR/EC) 81 mg PO SUTUTHSA rosuvastatin 20 mg tablet 20 mg PO QHS pantoprazole 40 mg Tablet,Delayed Release (Dr/Ec) 40 mg PO DAILY 30 Days Qty: 30 0RF albuterol sulfate 90 mcg/actuation HFA aerosol inhaler 1 puff inhalation Q6H PRN PRN (Reason: shortness of breath or wheezing) clonazepam 0.5 mg tablet 0.5 mg PO DAILY oxycodone 5 mg tablet 5 mg PO BID PRN PRN (Reason: severe pain) cetirizine [All Day Allergy (cetirizine)] 10 mg tablet 10 mg PO DAILY docusate sodium 250 mg capsule 250 mg PO DAILY cholecalciferol (vitamin D3) 25 mcg (1,000 unit) capsule 25 mcg PO DAILY PRN (Reason: .) Linzess 145 mcg capsule 145 mcg PO DAILY phenazopyridine [Pyridium] 100 mg tablet 100 mg PO TID PRN (Reason: pain) Qty: 90 1RF Primary Care Provider: Marci Nuñez Referrals: Marci Nuñez, [Primary Care Provider, Family Practice] Print Language: Wolof
[2025-11-08] MEDS: 0.9% Normal Saline (1000mL) 1,000 ML 999 ML IV (12:28)
[2025-11-08 12:31] LABS: Hematocrit 31.8 % (37-47); Hemoglobin 10.1 g/dL (12.0-15.0); Immature Granulocytes Count 0.020 X10^3/uL (0.0-0.0); Mean Corp Hgb Conc 31.8 g/dL (32-36); Mean Corpuscular Volume 95.2 fL (81-99); Mean Platelet Vol. 11.0 fl (6.2-12.0); NRBC Flagged by Analyzer 0 % (0-5); Platelet Count 176 K/mm3 (150-450); RBC Distribution Width CV 13.6 % (11.6-14.6); RBC Distribution Width SD 47.8 fl (35.1-43.9); Red Blood Count 3.34 M/mm3 (4.2-5.4); White Blood Count 6.5 K/mm3 (4.4-11.0)
[2025-11-08 12:55] LABS: AST(SGOT) 19 U/L (<=31); Alanine Aminotransfer ALT/SGPT 6 U/L (<=34); Albumin, Serum 3.6 g/dL (3.4-4.8); Alkaline Phosphatase 66 U/L (35-104); Anion Gap 11 (5-15); BUN 17 mg/dL (4-19); BUN/Creat Ratio 14.4 RATIO (10-20); Calcium,Total 9.2 mg/dL (7.6-11.0); Carbon Dioxide 24.3 mmol/L (21.0-32.0); Chloride 102 mmol/L (98-108); Estimated Creatinine Clearance 37.70 ml/min (50-250); Globulin 4.0 g/dL (2.2-4.2); Glucose 216 mg/dL (70-99); Lipase 21 U/L (13-75); Potassium 4.1 mmol/L (3.3-5.1)
--- NOTE | 2025-11-08 13:04 | CT_ITS ---
PROCEDURE: ABDOMEN/PELVIS W IV CONT ONLY 11/08/2025 REASON FOR EXAM: LEFT LOWER QUADRANT ABDOMINAL PAIN TECHNIQUE: Procedure Code: [id number] Modality: CT Procedure: ABDOMEN/PELVIS W IV CONT ONLY Coronal and Sagittal reconstruction series were provided. CONTRAST: Isovue-300 VOLUME: 98 mL One or more dose reduction techniques were used (e.g., Automated exposure control, adjustment of the mA and/or kV according to patient size, use of iterative reconstruction technique. RADIATION DOSE SUMMARY: CTDlvol: 10.35 mGy DLP: 391.53 mGycm COMPARISON: September 16, 2025. FINDINGS: A dual-chamber pacemaker is seen. Lung bases: Stable increased linear markings at the lung bases suggestive of scarring. Liver: Stable mild dilatation of the central intrahepatic biliary ducts most likely secondary to prior cholecystectomy. The common bile duct is mildly dilated and measures 10.7 mm. Gallbladder: Surgically absent. Spleen: Normal size. Pancreas: Pancreatic calcification suggestive of chronic pancreatitis. Adrenals: Unremarkable Kidneys: Stable 5.6 cm 5.6 cm cyst in the central inferior pole of the left kidney. Bladder: Unremarkable. Reproductive Organs: Unremarkable Bowel: Colonic diverticulosis without diverticulitis. Appendix: The appendix is not identified. There is no inflammatory process identified in the right lower quadrant to suggest appendicitis. Lymph nodes: No suspicious lymph node enlargement. Vasculature: Mild diffuse atherosclerotic calcifications are noted. Peritoneum / Retroperitoneum: Unremarkable Bones: Degenerative changes of the spine. CT/Abdomen/Pelvis W IV Cont ONLY IMPRESSION: Status post cholecystectomy with mild dilatation of the common bile duct and mi ldly dilated central intrahepatic biliary ducts. Stable left renal cysts. Pancreatic calcification suggestive of chronic pancreatitis. Sigmoid diverticulosis. Reading Location: [id number]
[2025-11-08 13:24] VITALS: BP 127/78; PULSE 77; RESP 16; O2SAT 98
[2025-11-08 13:50] LABS: Mucous, Urine 0 SEEN /hpf (<or=2+)
[2025-11-08 13:58] LABS: Color, Urine Yellow (Yellow); Glucose, Dipstick Normal (Normal); Ketone-Dipstick Negative (Negative); Leukocyte Esterase-Dipstick 100 /ul (Negative); Nitrite-Dipstick Positive (Negative); Occult Blood-Urine 10 /ul (Negative); Protein-Dipstick 30 mg/dl (Negative); Specific Gravity, Urine 1.015 (1.002-1.030); Urine Bilirubin Dipstick Negative (Negative)
[2025-11-08 14:20] LABS: Red Blood Cells-Urine 0-5 SEEN /hpf (0-5); Squamous Epithelial Cells - UA 5-10 SEEN /hpf (5-10)
[2025-11-08 15:12] VITALS: BP 132/74; PULSE 81; RESP 16; TEMP 36.6; O2SAT 97
== END 2025-11-08 15:15 | disposition home or self-care (01) ==
PROVIDERS: Emergency Provider Surgery; PCP Family Medicine; Visit Provider Surgery
DX: N39.0 Urinary tract infection, site not specified (principal); I13.0 Hypertensive heart and chronic kidney disease with heart failure and stage 1 through stage 4 chronic kidney disease, or unspecified chronic kidney disease; I50.22 Chronic systolic (congestive) heart failure; E11.22 Type 2 diabetes mellitus with diabetic chronic kidney disease; N18.9 Chronic kidney disease, unspecified; Z87.891 Personal history of nicotine dependence; K86.89 Other specified diseases of pancreas; N28.1 Cyst of kidney, acquired; I25.10 Atherosclerotic heart disease of native coronary artery without angina pectoris; K83.8 Other specified diseases of biliary tract; K57.30 Diverticulosis of large intestine without perforation or abscess without bleeding; E78.00 Pure hypercholesterolemia, unspecified; B96.5 Pseudomonas (aeruginosa) (mallei) (pseudomallei) as the cause of diseases classified elsewhere; K21.9 Gastro-esophageal reflux disease without esophagitis; Z79.899 Other long term (current) drug therapy; Z79.84 Long term (current) use of oral 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 drugs; Z90.49 Acquired absence of other specified parts of digestive tract
CPT/HCPCS: 74177; 80053; 81001; 83605; 83690; 85025; 87077; 87086; 87088; 87186; 96361; 96374; 96375; 99282; Q9967; A4216; J2405